=== PATIENT | female | born 1955 | race Native Hawaiian/Other Pacific Islander ===

== ENCOUNTER 2020-01-21 11:35 | Emergency (ER) | payer SELFPAY ==
[2020-01-21 11:48] VITALS: BP 177/89
[2020-01-21 12:23] LABS: Bilirubin,Urine NEG (Negative); Blood,Urine NEG (Negative); Color,Urine Yellow (Yellow); Mucus,Urine FEW /HPF; Urobilinogen,Urine < 2.0 mg/dL (<2.0)
[2020-01-21 12:24] LABS: Protein,Urine >500 mg/dL (Negative)
[2020-01-21] MEDS ORDERED: FAMOTIDINE 20 MG TAB PO ONE (12:25)
[2020-01-21] MEDS ORDERED: ONDANSETRON 4 MG ODT TAB PO ONE (12:25)
--- NOTE | 2020-01-21 12:28 | Emergency Department Report ---
ED Abdominal Pain HPI - General Chief Complaint: Abdominal Pain Stated Complaint: EPIGASTRIC PAIN Time Seen by Provider: 01/21/20 12:10 Source: patient, family Mode of arrival: Wheelchair Limitations: No Limitations - History of Present Illness Initial Comments: This 64-year-old female with a history of hypertension diabetes and high cholesterol controlled with medication presents the ED today complaining of upper abdominal pain for the past couple days. Patient states that she had a vomiting episode last night otherwise no unusual meals or fluid recently. Patient denies recent travel. She denies fever/chills/chest pain/shortness of breath/blurry vision or any other symptoms. Patient does state that pain is localized to upper abdominal area left greater than right. MD Complaint: abdominal pain - Related Data Previous Rx's Medication Instructions Recorded Last Taken Type HYDROcodone/APAP 5-325 [[place] 1 each PO Q6HR PRN #10 tablet 10/14/13 Unknown Rx 5/325 mg] Ibuprofen [Motrin 800 MG tab] 800 mg PO TID #30 tablet 10/14/13 Unknown Rx Tizanidine HCl [Zanaflex] 4 mg PO TID PRN #10 capsule 10/14/13 Unknown Rx Dicyclomine [Bentyl] 20 mg PO BID #20 tablet 01/21/20 Unknown Rx Famotidine [Pepcid] 20 mg PO BID #30 tablet 01/21/20 Unknown Rx Allergies Allergy/AdvReac Type Severity Reaction Status Date / Time No Known Allergies Allergy Verified 01/21/20 12:28 ED Review of Systems ROS: Stated complaint: EPIGASTRIC PAIN Other details as noted in HPI Comment: All other systems reviewed and negative ED Past Medical Hx - Past Medical History Previous Medical History?: Yes Hx Hypertension: Yes Hx Diabetes: Yes Additional medical history: chronic back pain - Surgical History Past Surgical History?: No - Social History Smoking Status: Never Smoker Substance Use Type: None - Medications Home Medications: Home Medications Medication Instructions Recorded Confirmed Last Taken Type HYDROcodone/APAP 5-325 [[place] 1 each PO Q6HR PRN #10 tablet 10/14/13 Unknown Rx 5/325 mg] Ibuprofen [Motrin 800 MG tab] 800 mg PO TID #30 tablet 10/14/13 Unknown Rx Tizanidine HCl [Zanaflex] 4 mg PO TID PRN #10 capsule 10/14/13 Unknown Rx Dicyclomine [Bentyl] 20 mg PO BID #20 tablet 01/21/20 Unknown Rx Famotidine [Pepcid] 20 mg PO BID #30 tablet 01/21/20 Unknown Rx ED Physical Exam - General Limitations: No Limitations General appearance: alert, in no apparent distress - Head Head exam: Present: atraumatic, normocephalic - Eye Eye exam: Present: normal appearance - ENT ENT exam: Present: mucous membranes moist - Neck Neck exam: Present: normal inspection - Respiratory Respiratory exam: Present: normal lung sounds bilaterally. Absent: respiratory distress - Cardiovascular Cardiovascular Exam: Present: regular rate, normal rhythm. Absent: systolic murmur, diastolic murmur, rubs, gallop - GI/Abdominal GI/Abdominal exam: Present: soft, tenderness (Mild tenderness to palpation of the upper abdomen), normal bowel sounds. Absent: distended, rebound, rigid, mass, bruit - Extremities Exam Extremities exam: Present: normal inspection - Back Exam Back exam: Present: normal inspection - Neurological Exam Neurological exam: Present: alert, oriented X3 - Psychiatric Psychiatric exam: Present: normal affect, normal mood - Skin Skin exam: Present: warm, dry, intact, normal color. Absent: rash ED Course Vital Signs 01/21/20 11:45 Temperature 98.1 F Pulse Rate 86 Respiratory 20 Rate Blood Pressure 177/89 O2 Sat by Pulse 97 Oximetry ED Medical Decision Making - Lab Data Result diagrams: 01/21/20 12:32 01/21/20 12:32 Laboratory Last Values WBC 9.9 K/mm3 (4.5-11.0) 01/21/20 12:32 RBC 4.34 M/mm3 (3.65-5.03) 01/21/20 12:32 Hgb 12.6 gm/dl (10.1-14.3) 01/21/20 12:32 Hct 37.1 % (30.3-42.9) 01/21/20 12:32 MCV 85 fl (79-97) 01/21/20 12:32 MCH 29 pg (28-32) 01/21/20 12:32 MCHC 34 % (30-34) 01/21/20 12:32 RDW 15.0 % (13.2-15.2) 01/21/20 12:32 Plt Count 272 K/mm3 (140-440) 01/21/20 12:32 Lymph % (Auto) 18.5 % (13.4-35.0) 01/21/20 12:32 [place] % (Auto) 6.8 % (0.0-7.3) 01/21/20 12:32 Eos % (Auto) 1.0 % (0.0-4.3) 01/21/20 12:32 Baso % (Auto) 0.8 % (0.0-1.8) 01/21/20 12:32 Lymph # 1.8 K/mm3 (1.2-5.4) 01/21/20 12:32 [place] # 0.7 K/mm3 (0.0-0.8) 01/21/20 12:32 Eos # 0.1 K/mm3 (0.0-0.4) 01/21/20 12:32 Baso # 0.1 K/mm3 (0.0-0.1) 01/21/20 12:32 Seg Neutrophils % 72.9 % (40.0-70.0) H 01/21/20 12:32 Seg Neutrophils # 7.2 K/mm3 (1.8-7.7) 01/21/20 12:32 Sodium 136 mmol/L (137-145) L 01/21/20 12:32 Potassium 5.3 mmol/L (3.6-5.0) H 01/21/20 12:32 Chloride 103.3 mmol/L (98-107) 01/21/20 12:32 Carbon Dioxide 19 mmol/L (22-30) L 01/21/20 12:32 Anion Gap 19 mmol/L 01/21/20 12:32 BUN 32 mg/dL (7-17) H 01/21/20 12:32 Creatinine 1.4 mg/dL (0.7-1.2) H 01/21/20 12:32 Estimated GFR 38 ml/min 01/21/20 12:32 BUN/Creatinine Ratio 23 % 01/21/20 12:32 Glucose 133 mg/dL (65-100) H 01/21/20 12:32 Calcium 8.2 mg/dL (8.4-10.2) L 01/21/20 12:32 Total Bilirubin 0.20 mg/dL (0.1-1.2) 01/21/20 12:32 AST 14 units/L (5-40) 01/21/20 12:32 ALT 9 units/L (7-56) 01/21/20 12:32 Alkaline Phosphatase 89 units/L (35-129) 01/21/20 12:32 Total Protein 5.7 g/dL (6.3-8.2) L 01/21/20 12:32 Albumin 2.4 g/dL (3.9-5) L 01/21/20 12:32 Albumin/Globulin Ratio 0.7 % 01/21/20 12:32 Lipase 23 units/L (13-60) 01/21/20 12:32 Urine Color Yellow (Yellow) 01/21/20 12:00 Urine Turbidity Clear (Clear) 01/21/20 12:00 Urine pH 6.0 (5.0-7.0) 01/21/20 12:00 Ur Specific [place] 1.012 (1.003-1.030) 01/21/20 12:00 Urine Protein >500 mg/dL (Negative) 01/21/20 12:00 Urine Glucose (UA) 150 mg/dL (Negative) 01/21/20 12:00 Urine Ketones Neg mg/dL (Negative) 01/21/20 12:00 Urine Blood Neg (Negative) 01/21/20 12:00 Urine Nitrite Neg (Negative) 01/21/20 12:00 Urine Bilirubin Neg (Negative) 01/21/20 12:00 Urine Urobilinogen < 2.0 mg/dL (<2.0) 01/21/20 12:00 Ur Leukocyte Esterase Neg (Negative) 01/21/20 12:00 Urine WBC (Auto) 2.0 /HPF (0.0-6.0) 01/21/20 12:00 Urine RBC (Auto) 4.0 /HPF (0.0-6.0) 01/21/20 12:00 U Epithel Cells (Auto) < 1.0 /HPF (0-13.0) 01/21/20 12:00 Urine Mucus Few /HPF 01/21/20 12:00 - Radiology Data Radiology results: report reviewed, image reviewed ULTRASOUND ABDOMEN, COMPLETE INDICATION: upper abd pain. COMPARISON: None available. FINDINGS: Pancreas: Normal. Abdominal Aorta: Normal. IVC: Normal. Liver: Normal. Gallbladder: Small amount of gallbladder sludge. No stones. Bile ducts: Normal. Common Bile Duct measures 2 mm. Right Kidney: Normal. Left Kidney: Normal. Spleen: Normal. Free fluid: None. Additional Findings: None. IMPRESSION: 1. Mild gallbladder sludge. 2. No other sonographic abnormality of the abdomen. Signer Name: Chema Corrigan MD Signed: 01/21/2020 2:27 PM Workstation Name: [id number] Transcribed By: Dictated By: Chema Corrigan MD Electronically Authenticated By: Chema Corrigan MD Signed Date/Time: 01/21/20 1421 - Medical Decision Making 64-year-old female presented with abdominal pain most likely secondary to gastritis/GERD. Patient received Pepcid, Zofran and Bentyl in the ED. Abdominal ultrasound shows mild gallbladder sludge, no stones, see report above All labs were completed. BUN and creatinine abnormal. Patient does note that she has been told in the past and is to follow-up with a securities supervisor. Unchanged. I discussed all findings with the patient. Discussed with patient follow-up with her web merchant as well as her primary care physician. Patient does state that she is taking her medications daily. Critical care attestation.: If time is entered above; I have spent that time in minutes in the direct care of this critically ill patient, excluding procedure time. ED Disposition Clinical Impression: Acute kidney injury (nontraumatic), Gastritis, Gallbladder sludge Disposition: DC-01 TO HOME OR SELFCARE Is pt being admited?: No Does the pt Need Aspirin: No Condition: Stable Instructions: Gastritis (ED), Biliary Colic (ED), Chronic Kidney Disease (ED), Abdominal Pain (ED) Additional Instructions: Make sure to follow up with the primary care physician as discussed. Take all your medications as you've been prescribed. If you have any worsening symptoms or develop new symptoms please return to ED immediately. Prescriptions: Dicyclomine [Bentyl] 20 mg PO BID #20 tablet Famotidine [Pepcid] 20 mg PO BID #30 tablet Referrals: PRIMARY CAREMD [Primary Care Provider] - 3-5 Days [facility] [Provider Group] - 3-5 Days [facility] [Provider Group] - 3-5 Days [facility] [Provider Group] - 3-5 Days [facility] [Provider Group] - 3-5 Days Forms: Work/School Release Form(ED) Time of Disposition: 15:06
[2020-01-21] MEDS ORDERED: FAMOTIDINE 20 MG/2 ML INJ IV ONE (12:29)
[2020-01-21] MEDS ORDERED: SODIUM CHLORIDE 0.9% 1000 ML 1,000 ML IV ONE (12:29)
[2020-01-21] MEDS ORDERED: ONDANSETRON 4 MG/2 ML INJ IV ONE (12:29)
[2020-01-21 12:45] LABS: Basophils # (Auto) 0.1 K/mm3 (0.0-0.1); Basophils % (Auto) 0.8 % (0.0-1.8); Eosinophils # (Auto) 0.1 K/mm3 (0.0-0.4); Hematocrit 37.1 % (30.3-42.9); Hemoglobin 12.6 gm/dl (10.1-14.3); Lymphocytes # (Auto) 1.8 K/mm3 (1.2-5.4); Lymphocytes % (Auto) 18.5 % (13.4-35.0); Mean Corpuscular HGB Conc 34 % (30-34); Mean Corpuscular Volume 85 fl (79-97); Monocytes # (Auto) 0.7 K/mm3 (0.0-0.8); Monocytes % (Auto) 6.8 % (0.0-7.3); Platelet Count 272 K/mm3 (140-440); Red Blood Count 4.34 M/mm3 (3.65-5.03)
[2020-01-21] MEDS ORDERED: DICYCLOMINE 10 MG/5 ML ORAL LIQD PO ONE (13:00)
[2020-01-21 13:08] LABS: Albumin 2.4 g/dL (3.9-5); Calcium 8.2 mg/dL (8.4-10.2)
[2020-01-21] MEDS ORDERED: DICYCLOMINE 20 MG TAB ONE (14:23)
--- NOTE | 2020-01-21 14:32 | Ultrasound Report ---
ULTRASOUND ABDOMEN, COMPLETE INDICATION: upper abd pain. COMPARISON: None available. FINDINGS: Pancreas: Normal. Abdominal Aorta: Normal. IVC: Normal. Liver: Normal. Gallbladder: Small amount of gallbladder sludge. No stones. Bile ducts: Normal. Common Bile Duct measures 2 mm. Right Kidney: Normal. Left Kidney: Normal. Spleen: Normal. Free fluid: None. Additional Findings: None. IMPRESSION: 1. Mild gallbladder sludge. 2. No other sonographic abnormality of the abdomen. Signer Name: Chema Corrigan MD Signed: 01/21/2020 2:27 PM Workstation Name: [id number]
== END 2020-01-21 15:26 | disposition home or self-care (01) ==
LOC: ED 11:35
DX: N17.9 Acute kidney failure, unspecified (principal); K29.70 Gastritis, unspecified, without bleeding; K82.4 Cholesterolosis of gallbladder; I10 Essential (primary) hypertension; E11.9 Type 2 diabetes mellitus without complications; Z79.899 Other long term (current) drug therapy
CPT/HCPCS: 36415; 76700; 80053; 81001; 83690; 85025; 96361; 96374; 96375; 99284; J2405; J7030

== ENCOUNTER 2020-05-11 23:17 | Inpatient (IN) | payer OTHER ==
--- NOTE | 2020-05-12 00:39 | XRay Report ---
CHEST 1 VIEW 0012 INDICATION / CLINICAL INFORMATION: Chest Pain COMPARISON: 12/25/2009 FINDINGS: SUPPORT DEVICES: None HEART / MEDIASTINUM: Mild cardiomegaly is now seen LUNGS / PLEURA: Mildly congested appearance is noted and there appears to be slight interstitial maximo a. No areas of consolidation are seen. No pneumothorax. ADDITIONAL FINDINGS: No significant additional findings. IMPRESSION: Congestion Signer Name: Stephan Huynh MD Signed: 05/12/2020 12:35 AM Workstation Name: [id number]
[2020-05-12 01:07] LABS: Basophils % (Auto) 0.5 % (0.0-1.8); Eosinophils # (Auto) 0.2 K/mm3 (0.0-0.4); Eosinophils % (Auto) 2.4 % (0.0-4.3); Hematocrit 37.4 % (30.3-42.9); Hemoglobin 12.4 gm/dl (10.1-14.3); Lymphocytes # (Auto) 1.5 K/mm3 (1.2-5.4); Lymphocytes % (Auto) 14.9 % (13.4-35.0); Mean Corpuscular HGB Conc 33 % (30-34); Mean Corpuscular Volume 85 fl (79-97); Monocytes # (Auto) 0.5 K/mm3 (0.0-0.8); Monocytes % (Auto) 5.5 % (0.0-7.3); Platelet Count 263 K/mm3 (140-440); Red Blood Count 4.39 M/mm3 (3.65-5.03); Red Cell Distribution Width 15.1 % (13.2-15.2)
[2020-05-12 01:29] LABS: BUN/Creatinine Ratio 24; Blood Urea Nitrogen 31 mg/dL (7-17); Calcium 8.3 mg/dL (8.4-10.2); Hemolysis Index 4
[2020-05-12] MEDS ORDERED: SODIUM CHLORIDE 0.9% 1000 ML 500 ML IV ONE (06:52)
--- NOTE | 2020-05-12 07:42 | Emergency Department Report ---
ED General Adult HPI - General Chief complaint: Chest Pain Stated complaint: ABD PAIN Time Seen by Provider: 05/12/20 06:29 Source: patient, family Mode of arrival: Ambulatory Limitations: Language Barrier - History of Present Illness Initial comments: This is a 64-year-old [place] Citizen speaking female. I have obtained her history in [place] Citizen. Apparently she has a history of COVID-19 infection with follow-up negative PCR. She tells me that she is here for profuse diarrhea which began yesterday. He does have some discomfort in her epigastric region. She has nausea but has not recently vomited. She does not report fever chills or hematochezia. Apparently her urine output has been somewhat diminished. She is a type II diabetic. -: Gradual, hour(s) Location: abdomen Severity scale (0 -10): 0 Quality: burning Consistency: intermittent Improves with: none Worsens with: none Associated Symptoms: nausea/vomiting, other Treatments Prior to Arrival: none - Related Data Home Medications Medication Instructions Recorded Confirmed Last Taken AtorvaSTATin [Lipitor] 20 mg PO QHS 05/12/20 05/12/20 Unknown carvediloL [Coreg] 6.25 mg PO BID 05/12/20 05/12/20 Unknown metFORMIN [Glucophage] 850 mg PO BID 05/12/20 05/12/20 Unknown Previous Rx's Medication Instructions Recorded Last Taken Type HYDROcodone/APAP 5-325 [[place] 1 each PO Q6HR PRN #10 tablet 10/14/13 Unknown Rx 5/325 mg] Ibuprofen [Motrin 800 MG tab] 800 mg PO TID #30 tablet 10/14/13 Unknown Rx Tizanidine HCl [Zanaflex] 4 mg PO TID PRN #10 capsule 10/14/13 Unknown Rx Dicyclomine [Bentyl] 20 mg PO BID #20 tablet 01/21/20 Unknown Rx Famotidine [Pepcid] 20 mg PO BID #30 tablet 01/21/20 Unknown Rx Allergies Allergy/AdvReac Type Severity Reaction Status Date / Time No Known Allergies Allergy Verified 01/21/20 12:28 ED Review of Systems ROS: Stated complaint: ABD PAIN Other details as noted in HPI Constitutional: denies: chills, fever Eyes: denies: eye pain, eye discharge, vision change ENT: denies: ear pain, throat pain Respiratory: denies: cough, shortness of breath, wheezing Cardiovascular: denies: chest pain, palpitations Endocrine: no symptoms reported Gastrointestinal: abdominal pain, nausea, diarrhea Genitourinary: denies: urgency, dysuria, discharge Musculoskeletal: denies: back pain, joint swelling, arthralgia Skin: denies: rash, lesions Neurological: denies: headache, weakness, paresthesias Psychiatric: denies: anxiety, depression Hematological/Lymphatic: denies: easy bleeding, easy bruising ED Past Medical Hx - Past Medical History Previous Medical History?: Yes Hx Hypertension: Yes Hx Congestive Heart Failure: Yes (? Takes Coreg) Hx Diabetes: Yes Additional medical history: chronic back pain - Surgical History Past Surgical History?: No - Social History Smoking Status: Never Smoker - Medications Home Medications: Home Medications Medication Instructions Recorded Confirmed Last Taken Type HYDROcodone/APAP 5-325 [[place] 1 each PO Q6HR PRN #10 tablet 10/14/13 Unknown Rx 5/325 mg] Ibuprofen [Motrin 800 MG tab] 800 mg PO TID #30 tablet 10/14/13 Unknown Rx Tizanidine HCl [Zanaflex] 4 mg PO TID PRN #10 capsule 10/14/13 Unknown Rx Dicyclomine [Bentyl] 20 mg PO BID #20 tablet 01/21/20 Unknown Rx Famotidine [Pepcid] 20 mg PO BID #30 tablet 01/21/20 Unknown Rx AtorvaSTATin [Lipitor] 20 mg PO QHS 05/12/20 05/12/20 Unknown History carvediloL [Coreg] 6.25 mg PO BID 05/12/20 05/12/20 Unknown History metFORMIN [Glucophage] 850 mg PO BID 05/12/20 05/12/20 Unknown History ED Physical Exam - General Limitations: Physical Limitation General appearance: obese, other (Somewhat dry) - Head Head exam: Present: atraumatic, normocephalic - Eye Eye exam: Present: normal appearance. Absent: scleral icterus - ENT ENT exam: Present: mucous membranes dry, normal external ear exam - Neck Neck exam: Present: normal inspection. Absent: tenderness, meningismus - Respiratory Respiratory exam: Present: normal lung sounds bilaterally. Absent: respiratory distress - Cardiovascular Cardiovascular Exam: Present: regular rate, normal rhythm. Absent: systolic murmur, diastolic murmur, rubs, gallop - GI/Abdominal GI/Abdominal exam: Present: soft, normal bowel sounds. Absent: distended, tenderness, guarding, rebound, rigid - Extremities Exam Extremities exam: Present: normal inspection - Back Exam Back exam: Present: normal inspection - Neurological Exam Neurological exam: Present: alert, oriented X3, CN II-XII intact. Absent: motor sensory deficit - Psychiatric Psychiatric exam: Present: normal affect, normal mood - Skin Skin exam: Present: warm, dry, intact, normal color. Absent: rash ED Course Vital Signs 05/11/20 05/12/20 23:47 07:34 Temperature 97.9 F 97.7 F Pulse Rate 86 77 Respiratory 18 15 Rate Blood Pressure 228/89 Blood Pressure 121/51 [Right] O2 Sat by Pulse 98 98 Oximetry - Reevaluation(s) Reevaluation #1: Patient has an elevated creatinine of 1.3 and a potassium of 5.1. This raises the specter of acute renal injury. Her initial systolic blood pressure was quite high. However on repeat it was normotensive without medication given. Her chest x-ray shows congestion. I am going to repeat her renal function and broaden her metabolic work-up. We will see if she needs to be admitted. 05/12/20 07:41 05/12/20 08:41 Repeat BMP shows a worsening creatinine and potassium. The patient is given fluids, Lasix, D50 and insulin. Renal consult. Admit to hospitalist service. 05/12/20 09:00 Discussed with renal. Will monitor the patient sugar. She probably will need a bit more insulin. Accu-Cheks every 1 hour. Urinalysis to be obtained. ED Medical Decision Making - Lab Data Result diagrams: 05/12/20 00:17 05/12/20 07:31 Laboratory Results - last 24 hr 05/12/20 05/12/20 05/12/20 00:17 00:17 02:28 WBC 9.9 RBC 4.39 Hgb 12.4 Hct 37.4 MCV 85 MCH 28 MCHC 33 RDW 15.1 Plt Count 263 Lymph % (Auto) 14.9 [place] % (Auto) 5.5 Eos % (Auto) 2.4 Baso % (Auto) 0.5 Lymph # 1.5 [place] # 0.5 Eos # 0.2 Baso # 0.0 Seg Neutrophils % 76.7 H Seg Neutrophils # 7.6 Sodium 142 Potassium 5.1 H Chloride 108.9 H Carbon Dioxide 23 Anion Gap 15 BUN 31 H Creatinine 1.3 H Estimated GFR 42 BUN/Creatinine Ratio 24 Glucose 178 H Calcium 8.3 L Troponin T < 0.010 < 0.010 05/12/20 05:57 WBC RBC Hgb Hct MCV MCH MCHC RDW Plt Count Lymph % (Auto) [place] % (Auto) Eos % (Auto) Baso % (Auto) Lymph # [place] # Eos # Baso # Seg Neutrophils % Seg Neutrophils # Sodium Potassium Chloride Carbon Dioxide Anion Gap BUN Creatinine Estimated GFR BUN/Creatinine Ratio Glucose Calcium Troponin T < 0.010 - EKG Data -: EKG Interpreted by Me EKG shows normal: sinus rhythm, axis, intervals, QRS complexes, ST-T waves Rate: normal - EKG Data Interpretation: nonspecific ST-T wave abhishek - Radiology Data Radiology results: report reviewed, image reviewed LUNGS / PLEURA: Mildly congested appearance is noted and there appears to be slight interstitial edema. No areas of consolidation are seen. No pneumothorax. ADDITIONAL FINDINGS: No significant additional findings. IMPRESSION: Congestion Critical care attestation.: If time is entered above; I have spent that time in minutes in the direct care of this critically ill patient, excluding procedure time. ED Disposition Clinical Impression: Acute renal injury Hyperglycemia due to type 2 diabetes mellitus Qualifiers: Diabetes mellitus skilled nursing insulin use: without skilled nursing use Qualified Code(s): E11.65 - Type 2 diabetes mellitus with hyperglycemia Cardiomyopathy Qualifiers: Cardiomyopathy type: unspecified Qualified Code(s): I42.9 - Cardiomyopathy, unspecified Congestive heart failure Qualifiers: Heart failure type: unspecified Heart failure chronicity: acute on chronic Qualified Code(s): I50.9 - Heart failure, unspecified Disposition: 09 OP ADMIT IP TO THIS HOSP Is pt being admited?: Yes Does the pt Need Aspirin: Yes Condition: Stable Instructions: Diabetes Mellitus Type 2 in Adults (ED) Referrals: PRIMARY CARE, [Primary Care Provider] - 3-5 Days Time of Disposition: 09:03
[2020-05-12 08:04] LABS: Partial Thromboplastin Time 25.5 Sec. (24.2-36.6)
[2020-05-12 08:13] LABS: Calcium 8.1 mg/dL (8.4-10.2)
[2020-05-12 08:21] LABS: Alanine Aminotransferase 11 units/L (7-56); Albumin 2.4 g/dL (3.9-5); Bilirubin,Direct < 0.2 mg/dL (0-0.2)
[2020-05-12] MEDS ORDERED: DEXTROSE 50% IN WATER (25GM) 50 ML SYRINGE IV ONE (08:35)
[2020-05-12] MEDS ORDERED: FUROSEMIDE 40 MG/4 ML INJ IV ONE ×2 (08:35→08:48)
[2020-05-12] MEDS ORDERED: INSULIN REGULAR, HUMAN 100 UNIT/ML 3ML VIAL IV ONE (09:00)
[2020-05-12] MEDS ORDERED: ASPIRIN 325 MG TAB PO ONE (09:03)
[2020-05-12] MEDS ORDERED: FAMOTIDINE 20 MG TAB PO SCH (10:00)
[2020-05-12] MEDS ORDERED: ACETAMINOPHEN 325 MG TAB PO PRN (10:00)
[2020-05-12] MEDS ORDERED: ONDANSETRON 4 MG/2 ML INJ IV PRN (10:00)
[2020-05-12] MEDS ORDERED: DEXTROSE 50% IN WATER (25GM) 50 ML SYRINGE IV PRN (10:00)
[2020-05-12] MEDS ORDERED: MORPHINE 2 MG/1 ML INJ IV PRN (10:00)
[2020-05-12] MEDS ORDERED: SODIUM CHLORIDE 0.45% 1000 ML 1,000 ML IV SCH (10:00)
[2020-05-12] MEDS ORDERED: carvediloL 6.25 MG TAB PO SCH (10:00)
--- NOTE | 2020-05-12 10:23 | Progress Note ---
Assessment and Plan Assessment and plan: Patient currently be admitted for acute on chronic kidney injury. Volume overload diabetes hyperkalemia. Total Time Spent with Patient (Minutes): 26 - Patient Problems (1) Hypertension Current Visit: Yes Status: Acute Plan to address problem: Patient with history of hypertension was scheduled to be on Coreg. Patient had initial blood pressure of 228/98 and repeat showed normal blood pressure. Will place patient back on low-dose Coreg 3.125 mg twice daily. We will also evaluate patient with echocardiogram to see whether she in fact has sustained left ventricular contractibility. (2) Acute renal injury Current Visit: Yes Status: Acute Plan to address problem: Patient appears to have chronic kidney disease patient had the same similar labs 4 months ago and then also prior to that was scheduled to follow-up with renal as outpatient. Think patient should be to see renal as outpatient more chronic than acute at this time. Would not be overly aggressive with fluids given patient's possible decrease left ventricular systolic function. (3) Cardiomyopathy Current Visit: Yes Status: Acute Qualifiers: Cardiomyopathy type: unspecified Qualified Code(s): I42.9 - Cardiomyopathy, unspecified Plan to address problem: Cardiomegaly rule out congestive heart failure. Cardiac evaluation. (4) Congestive heart failure Current Visit: Yes Status: Acute Qualifiers: Heart failure type: unspecified Heart failure chronicity: acute on chronic Qualified Code(s): I50.9 - Heart failure, unspecified Plan to address problem: Patient does not have any overt acute signs of volume overload patient does have some congestion on her chest x-ray and a +1 pitting edema on physical exam. We will add low-dose Lasix at this time. I do not think this will exacerbate her kidney function. (5) Hyperglycemia due to type 2 diabetes mellitus Current Visit: Yes Status: Acute Qualifiers: Diabetes mellitus halfway insulin use: without halfway use Qualified Code(s): E11.65 - Type 2 diabetes mellitus with hyperglycemia Plan to address problem: Patient was on metformin will change to sliding scale insulin for now. Treat q. before meals and nightly. (6) Hyperkalemia Current Visit: Yes Status: Acute Plan to address problem: Patient received ED already calcium gluconate Lasix insulin. Repeat potassium. We will hold off on Kayexalate now given patient's diarrhea. History Interval history: Patient is a 62-year-old female with a history of diabetes hypertension chronic kidney disease presents with chief complaint of abdominal pain and diarrhea. P atilan describes pain is midepigastric nonradiating. Important to note patient was here several months ago with similar pain was given Bentyl and H2 hugh and seemed to do fairly well. Patient is low no longer taking those medications at present. Was supposed to follow-up with nephrology as well as primary care physician and GI this was not done. Patient states this time symptoms were associated with a diarrhea which patient denies blood in denies been dark. States normal consistency but having several stools greater than 5 stools per day and has been going on for approximately 2 to 3 days. Patient at present denies chest pain denies flank pain denies any fever chills nausea vomiting. Patient was diagnosed with COVID-19 4 weeks ago and is since then had a negative PCR for COVID. Patient states she was able to hold food down however will have pain especially with spicy foods hot foods. Patient was stable with water. Patient also was not taking metformin because of stomach issues. Chest x-ray revealed patient to have some congestion on chest x-ray. Patient also had a creatinine of 1.3 and then to 1.4 this appears to be patient's new baseline. Hospitalist Physical - Constitutional Vitals: Temp Pulse Resp BP Pulse Ox 97.7 F 77 15 121/51 98 05/12/20 07:34 05/12/20 07:34 05/12/20 07:34 05/12/20 07:34 05/12/20 07:34 General appearance: Present: no acute distress - EENT Eyes: Present: PERRL, EOM intact ENT: hearing intact, clear oral mucosa, dentition normal - Neck Neck: Present: supple, normal ROM - Respiratory Respiratory: right: rhonchi (Few rhonchi at bases) - Cardiovascular Rhythm: regular - Extremities Extremities: no ischemia, pulses intact, pulses symmetrical Extremity abnormal: edema, other (+1 pitting edema.) Peripheral Pulses: within normal limits - Abdominal General gastrointestinal: soft, non-tender, non-distended, normal bowel sounds, other (Obese), no hepatomegaly, no splenomegaly, no mass - Psychiatric Psychiatric: appropriate mood/affect, intact judgment & insight, memory intact - Neurologic Neurologic: CNII-XII intact, moves all extremities HEART Score - HEART Score Troponin: Troponin T < 0.010 ng/mL (0.00-0.029) 05/12/20 07:31 Results - Labs CBC & Chem 7: 05/12/20 00:17 05/12/20 07:31 Labs: Laboratory Last Values WBC 9.9 K/mm3 (4.5-11.0) 05/12/20 00:17 RBC 4.39 M/mm3 (3.65-5.03) 05/12/20 00:17 Hgb 12.4 gm/dl (10.1-14.3) 05/12/20 00:17 Hct 37.4 % (30.3-42.9) 05/12/20 00:17 MCV 85 fl (79-97) 05/12/20 00:17 MCH 28 pg (28-32) 05/12/20 00:17 MCHC 33 % (30-34) 05/12/20 00:17 RDW 15.1 % (13.2-15.2) 05/12/20 00:17 Plt Count 263 K/mm3 (140-440) 05/12/20 00:17 Lymph % (Auto) 14.9 % (13.4-35.0) 05/12/20 00:17 Leake % (Auto) 5.5 % (0.0-7.3) 05/12/20 00:17 Eos % (Auto) 2.4 % (0.0-4.3) 05/12/20 00:17 Baso % (Auto) 0.5 % (0.0-1.8) 05/12/20 00:17 Lymph # 1.5 K/mm3 (1.2-5.4) 05/12/20 00:17 Leake # 0.5 K/mm3 (0.0-0.8) 05/12/20 00:17 Eos # 0.2 K/mm3 (0.0-0.4) 05/12/20 00:17 Baso # 0.0 K/mm3 (0.0-0.1) 05/12/20 00:17 Seg Neutrophils % 76.7 % (40.0-70.0) H 05/12/20 00:17 Seg Neutrophils # 7.6 K/mm3 (1.8-7.7) 05/12/20 00:17 PT 13.3 Sec. (12.2-14.9) 05/12/20 07:31 INR 1.00 (0.87-1.13) 05/12/20 07:31 APTT 25.5 Sec. (24.2-36.6) 05/12/20 07:31 Sodium 140 mmol/L (137-145) 05/12/20 07:31 Potassium 5.7 mmol/L (3.6-5.0) H 05/12/20 07:31 Chloride 111.1 mmol/L (98-107) H 05/12/20 07:31 Carbon Dioxide 21 mmol/L (22-30) L 05/12/20 07:31 Anion Gap 14 mmol/L 05/12/20 07:31 BUN 37 mg/dL (7-17) H 05/12/20 07:31 Creatinine 1.4 mg/dL (0.6-1.2) H 05/12/20 07:31 Estimated GFR 38 ml/min 05/12/20 07:31 BUN/Creatinine Ratio 26 % 05/12/20 07:31 Glucose 222 mg/dL (65-100) H 05/12/20 07:31 Lactic Acid 0.90 mmol/L (0.7-2.0) 05/12/20 07:31 Calcium 8.1 mg/dL (8.4-10.2) L 05/12/20 07:31 Phosphorus 4.60 mg/dL (2.5-4.5) H 05/12/20 07:31 Magnesium 2.20 mg/dL (1.7-2.3) 05/12/20 07:31 Total Bilirubin < 0.20 mg/dL (0.1-1.2) 05/12/20 07:31 Direct Bilirubin < 0.2 mg/dL (0-0.2) 05/12/20 07:31 Indirect Bilirubin 0.0 mg/dL 05/12/20 07:31 AST 15 units/L (5-40) 05/12/20 07:31 ALT 11 units/L (7-56) 05/12/20 07:31 Alkaline Phosphatase 95 units/L (35-129) 05/12/20 07:31 Troponin T < 0.010 ng/mL (0.00-0.029) 05/12/20 07:31 NT-Pro-B Natriuret Pep 5786 pg/mL (0-900) H 05/12/20 07:31 Total Protein 4.7 g/dL (6.3-8.2) L 05/12/20 07:31 Albumin 2.4 g/dL (3.9-5) L 05/12/20 07:31 Albumin/Globulin Ratio 1.0 % 05/12/20 07:31 Microbiology: Microbiology 05/12/20 07:31 Peripheral/Venous Blood Culture - Preliminary Culture in Progress 05/12/20 07:31 Peripheral/Venous Blood Culture - Preliminary Culture in Progress - Imaging and Cardiology EKG: image reviewed Chest x-ray: image reviewed Helm/IV: IV Catheter Type [Left INT / Saline Lock Antecubital] Active Medications - Current Medications Current Medications: Generic Name Dose Route Start Last Admin Trade Name Freq PRN Reason Stop Dose Admin Acetaminophen 650 mg 05/12/20 10:00 Tylenol PO Q4H PRN Pain MILD(1-3)/Fever >100.5/MCINTYRE Carvedilol 6.25 mg 05/12/20 10:00 Coreg PO BID [facility] Dextrose 50 ml 05/12/20 10:00 D50w (25gm) Syringe IV Q30MIN PRN Hypoglycemia Protocol Dicyclomine HCl 20 mg 05/12/20 10:00 Bentyl PO BID [facility] Enoxaparin Sodium 30 mg 05/12/20 11:00 Enoxaparin SUB-Q QDAY [facility] Famotidine 20 mg 05/12/20 10:00 Pepcid PO BID [facility] Sodium Chloride 500 mls @ 75 mls/hr 05/12/20 06:52 05/12/20 07:31 Nacl 0.9% 1000 Ml IV 05/12/20 13:31 75 mls/hr ONCE ONE Administration Sodium Chloride 1,000 mls @ 75 mls/hr 05/12/20 10:00 Nacl 0.45% 1000 Ml IV DIRECT [facility] Insulin Human Regular 0 units 05/12/20 22:00 Humulin R. SUB-Q QHS [facility] Protocol Morphine Sulfate 2 mg 05/12/20 10:00 Morphine IV Q4H PRN Pain, Moderate (4-6) Ondansetron HCl 4 mg 05/12/20 10:00 Zofran IV Q8H PRN Nausea And Vomiting Sodium Chloride 10 ml 05/12/20 10:00 Sodium Chloride Flush Syringe 10 Ml IV BID [facility] Sodium Chloride 10 ml 05/12/20 09:47 Sodium Chloride Flush Syringe 10 Ml IV PRN PRN LINE FLUSH
[2020-05-12] MEDS ORDERED: SODIUM CHLORIDE 0.9% 1000 ML 1,000 ML IV SCH (10:30)
[2020-05-12] MEDS: FAMOTIDINE 20 MG TAB PO SCH ×2 (10:49→21:39)
[2020-05-12] MEDS: ENOXAPARIN 30 MG/0.3 ML INJ SUB-Q SCH (10:49)
[2020-05-12] MEDS: DICYCLOMINE 20 MG TAB PO SCH ×2 (10:49→21:39)
--- NOTE | 2020-05-12 12:42 | Consultation ---
History of Present Illness - Reason for Consult Consult date: 05/12/20 acute renal failure, chronic renal failure - History of Present Illness This is a 62-year-old woman with a history of diabetes, hypertension, chronic kidney disease who presents with epigastric abdominal pain and diarrhea. She notes that pain is ongoing for several months. Feeling "ok" at time of consult. She denies having a kidney doctor or knowing of any kidney issues in the past. Notes good urination. Denies any appetite changes. No vomiting or nausea. No dyspnea, no chest pain. Past History Past Medical History: arthritis, diabetes, hypertension Past Surgical History: No surgical history Social history: no significant social history Family history: no significant family history Medications and Allergies Allergies Allergy/AdvReac Type Severity Reaction Status Date / Time No Known Allergies Allergy Verified 01/21/20 12:28 Home Medications Medication Instructions Recorded Confirmed Last Taken Type AtorvaSTATin [Lipitor] 20 mg PO QHS 05/12/20 05/12/20 Unknown History carvediloL [Coreg] 6.25 mg PO BID 05/12/20 05/12/20 Unknown History lisinopriL [Zestril TAB] 40 mg PO QDAY 05/12/20 05/12/20 Unknown History metFORMIN [Glucophage] 850 mg PO BID 05/12/20 05/12/20 Unknown History Active Meds: Active Medications Acetaminophen (Tylenol) 650 mg PO Q4H PRN PRN Reason: Pain MILD(1-3)/Fever >100.5/MCINTYRE Dextrose (D50w (25gm) Syringe) 50 ml IV Q30MIN PRN; Protocol PRN Reason: Hypoglycemia Dicyclomine HCl (Bentyl) 20 mg PO BID [facility] Last Admin: 05/12/20 10:49 Dose: 20 mg Documented by: Enoxaparin Sodium (Enoxaparin) 30 mg SUB-Q QDAY [facility] Last Admin: 05/12/20 10:49 Dose: 30 mg Documented by: Famotidine (Pepcid) 20 mg PO BID [facility] Last Admin: 05/12/20 10:49 Dose: 20 mg Documented by: Sodium Chloride (Nacl 0.9% 1000 Ml) 500 mls @ 75 mls/hr IV ONCE ONE Stop: 05/12/20 13:31 Last Admin: 05/12/20 07:31 Dose: 75 mls/hr Documented by: Sodium Chloride (Nacl 0.45% 1000 Ml) 1,000 mls @ 75 mls/hr IV DIRECT [facility] Sodium Chloride (Nacl 0.9% 1000 Ml) 1,000 mls @ 75 mls/hr IV DIRECT [facility] Insulin Human Regular (Humulin R.) 0 units SUB-Q QHS [facility]; Protocol Morphine Sulfate (Morphine) 2 mg IV Q4H PRN PRN Reason: Pain, Moderate (4-6) Ondansetron HCl (Zofran) 4 mg IV Q8H PRN PRN Reason: Nausea And Vomiting Sodium Chloride (Sodium Chloride Flush Syringe 10 Ml) 10 ml IV BID [facility] Last Admin: 05/12/20 10:49 Dose: 10 ml Documented by: Sodium Chloride (Sodium Chloride Flush Syringe 10 Ml) 10 ml IV PRN PRN PRN Reason: LINE FLUSH Review of Systems Constitutional: no weight loss, no fever, no chills, no sweats Cardiovascular: no chest pain, no orthopnea, no palpitations Respiratory: no cough, no shortness of breath, no congestion Gastrointestinal: abdominal pain, nausea, diarrhea, change in bowel habits, no vomiting, no constipation Genitourinary Female: no dysuria, no difficulty voiding Musculoskeletal: no neck stiffness, no muscle cramps Integumentary: no rash Neurological: no head injury, no vertigo, no headaches Psychiatric: no anxiety Exam - Vital Signs Vital signs: Vital Signs Temp Pulse Resp BP Pulse Ox 97.9 F 86 18 228/89 98 05/11/20 23:47 05/11/20 23:47 05/11/20 23:47 05/11/20 23:47 05/11/20 23:47 - Physical Exam Narrative exam: Constitutional: no acute distress Head: NC/AT Neck: supple Lungs: clear to auscultation CV: RRR, no M/R/G Abdomen: soft, non-tender, bowel sounds present Back: nontender Extremities: no edema, pulses WNL Skin: intact Neuro: no focal deficits, alert and oriented x4 Results - Lab Results 05/12/20 00:17 05/12/20 07:31 Most recent lab results Calcium 8.1 mg/dL (8.4-10.2) L 05/12/20 07:31 Phosphorus 4.60 mg/dL (2.5-4.5) H 05/12/20 07:31 Magnesium 2.20 mg/dL (1.7-2.3) 05/12/20 07:31 Assessment and Plan # Acute Kidney Injury, Chronic Kidney Disease: agree that patient most likely has CKD stage 3 in setting of DM, HTN. Creatinine stable at 1.4 from January 2020. May have mild AVANI with elevation in BUN relative to creatinine due to pre-renal injury from diarrhea. - will establish outpatient follow up at time of discharge in our CKD clinic - agree with low dose Lasix, encourage PO hydration, management of diarrhea per primary team - strict Is/Os - renal diet - avoid nephrotoxins - will check PTH, urine protein/creatinine to assess chronicity of renal disease - check serologies including SPEP while in house - prior renal imaging from January 2020 WNL, consider repeat if renal function w orsens # Mild Hyperkalemia: agree with medical management. Low dose Lasix ok for now. # Hypocalcemia, Hyperphosphatemia: suspect secondary hyperparathyroidism, PTH ordered # HTN: BP high on arrival, now at goal. Agree with carvedilol, will plan for ELLIE/ARB as outpatient given proteinuria on UA. Echo pending # CHF history: echo pending. Volume status appears reasonable # DM: management per primary
[2020-05-12 20:07] LABS: Bilirubin,Urine NEG (Negative); Blood,Urine NEG (Negative); Color,Urine Yellow (Yellow); Hyaline Casts,Urine 14 /LPF; Mucus,Urine FEW /HPF; Urobilinogen,Urine < 2.0 mg/dL (<2.0)
[2020-05-12 20:08] LABS: Protein,Urine >500 mg/dL (Negative)
[2020-05-12 20:35] LABS: Protein/Creatinine Ratio,Urine 3.21
[2020-05-12] MEDS ORDERED: INSULIN REGULAR, HUMAN 100 UNITS/1 ML SUB-Q SCH (22:00)
[2020-05-13 07:48] LABS: Calcium 7.9 mg/dL (8.4-10.2)
[2020-05-13] MEDS ORDERED: carvediloL 6.25 MG TAB PO SCH ×2 (10:00)
[2020-05-13] MEDS ORDERED: LISINOPRIL 40 MG TAB PO SCH (10:00)
--- NOTE | 2020-05-13 10:55 | Discharge Summary ---
Providers - Providers Date of Admission: 05/12/20 09:53 Date of discharge: 05/13/20 Attending physician: LA HARRIS 05/12/20 08:33 Consult to Physician [CONS] Stat Comment: Consulting Provider: ROSEMARIE PFEIFFER Physician Instructions: Reason For Exam: Acute Renal Injury Primary care physician: METALWORKER Hospitalization Condition: Stable Hospital course: Patient presented with chronic kidney disease abdominal pain. Abdominal pain was old secondary to gastritis. And diarrhea has since resolved on 1 time. Patient abdominal pain was secondary to gastritis and GERD. Was scheduled to see [facility] did not go. Patient states she will go this time. Patient also had chronic kidney disease will follow-up with renal on outpatient. Blood pressure remained stable. Will increase Coreg back to 6.25 mg twice daily. Continue to hold ELLIE. This will be determined after she sees her primary care physician and nephrology. Nephrology aware. Disposition: TO HOME OR SELFCARE - Discharge Diagnoses (1) Hypertension Status: Acute Comment: fair controlled coreg (2) Acute renal injury Status: Acute Comment: resloved (3) Cardiomyopathy Status: Acute Qualifiers: Cardiomyopathy type: unspecified Qualified Code(s): I42.9 - Cardiomyopathy, unspecified (4) Congestive heart failure Status: Acute Qualifiers: Heart failure type: unspecified Heart failure chronicity: acute on chronic Qualified Code(s): I50.9 - Heart failure, unspecified Comment: await the echo and discharge (5) Hyperglycemia due to type 2 diabetes mellitus Status: Acute Qualifiers: Diabetes mellitus [facility] insulin use: without [facility] use Qualified Code(s): E11.65 - Type 2 diabetes mellitus with hyperglycemia Comment: well controlled (6) Hyperkalemia Status: Acute Core Measure Documentation - Palliative Care Palliative Care/ Comfort Measures: Not Applicable - Core Measures Any of the following diagnoses?: none Exam - Constitutional Vitals: Temp Pulse Resp BP Pulse Ox 98.3 F 75 20 140/84 98 05/13/20 06:10 05/13/20 06:26 05/13/20 06:10 05/13/20 06:26 05/12/20 22:01 General appearance: Present: no acute distress, well-nourished - EENT Eyes: Present: PERRL ENT: hearing intact, clear oral mucosa - Neck Neck: Present: supple, normal ROM - Respiratory Respiratory effort: normal Respiratory: bilateral: CTA - Cardiovascular Heart Sounds: Present: S1 & S2. Absent: rub, click - Extremities Extremities: pulses symmetrical, No edema Peripheral Pulses: within normal limits - Abdominal General gastrointestinal: Present: soft, non-tender, non-distended, normal bowel sounds Female genitourinary: Present: normal - Integumentary Integumentary: Present: clear, warm, dry - Musculoskeletal Musculoskeletal: gait normal, strength equal bilaterally - Psychiatric Psychiatric: appropriate mood/affect, intact judgment & insight - Neurologic Neurologic: CNII-XII intact, moves all extremities Plan Activity: no restrictions Weight Bearing Status: Full Weight Bearing Diet: diabetic Special Instructions: home health RN Follow up with: PRIMARY CARE, [Primary Care Provider] - 3-5 Days Prescriptions: Dicyclomine [Bentyl] 20 mg PO BID #20 tablet carvediloL [Coreg] 6.25 mg PO BID #60 Famotidine [Pepcid] 20 mg PO BID #30 tablet
[2020-05-13] MEDS ORDERED: ENOXAPARIN 40 MG/0.4 ML INJ SUB-Q SCH (11:11)
[2020-05-13] MEDS: FAMOTIDINE 20 MG TAB PO SCH (12:13)
[2020-05-13] MEDS: DICYCLOMINE 20 MG TAB PO SCH (12:13)
[2020-05-13] MEDS: ENOXAPARIN 30 MG/0.3 ML INJ SUB-Q SCH (12:13)
[2020-05-13 13:17] VITALS: BP 200/90
[2020-05-13] MEDS ORDERED: MODERATE DOSE SS, INSULIN LISPRO SUB-Q SCH (22:00)
[2020-05-13] MEDS ORDERED: [UNRECOGNIZED DRUG - OTHER] SUB-Q SCH (22:00)
== END 2020-05-13 15:49 | disposition home or self-care (01) | DRG 683 ==
LOC: ED 23:17 → 3A 05-12 09:53
PROVIDERS: ADMIT Internal Medicine; ATTEND Internal Medicine
DX: N17.9 Acute kidney failure, unspecified (principal); I42.9 Cardiomyopathy, unspecified; I13.0 Hypertensive heart and chronic kidney disease with heart failure and stage 1 through stage 4 chronic kidney disease, or unspecified chronic kidney disease; K29.00 Acute gastritis without bleeding; E11.65 Type 2 diabetes mellitus with hyperglycemia; I50.9 Heart failure, unspecified; G89.29 Other chronic pain; M54.9 Dorsalgia, unspecified; E66.9 Obesity, unspecified; E11.22 Type 2 diabetes mellitus with diabetic chronic kidney disease; M19.90 Unspecified osteoarthritis, unspecified site; N18.3 Chronic kidney disease, stage 3 (moderate); E83.51 Hypocalcemia; E83.39 Other disorders of phosphorus metabolism; K21.9 Gastro-esophageal reflux disease without esophagitis; E87.5 Hyperkalemia; Z79.899 Other long term (current) drug therapy; Z79.84 Long term (current) use of oral hypoglycemic drugs; Z79.891 Long term (current) use of opiate analgesic
CPT/HCPCS: 36415; 71045; 80048; 80076; 81001; 82140; 82570; 82962; 83735; 83880; 83970; 84100; 84156; 84165; 84484; 85025; 85610; 85730; 86021; 86038; 86160; 87040; 87045; 87086; 87177; 87493; 93005; 93306; G0378; J1650; J1815; J1940; J7030

== ENCOUNTER 2020-05-28 13:28 | Inpatient (IN) | payer OTHER, SELFPAY ==
[~2020-05-28 13:28] MED LIST: ETOMIDATE 20 MG/10 ML INJ IV ONE
[2020-05-28] MEDS ORDERED: niCARdipine DRIP 0 MG/0 ML BAG ONE (13:39)
--- NOTE | 2020-05-28 13:45 | Emergency Department Report ---
HPI - General Chief Complaint: Cardiac Arrest/CPR Time Seen by Provider: 05/28/20 13:33 - HPI HPI: Room 20 The patient is a 64-year-old female present with a chief complaint of cardiac arrest. Per EMS they received a call for shortness of breath. EMS arrived on scene to find the patient wheezing. Patient was transported to the ambulance and while in route went into cardiac arrest with an initial rhythm of PEA. ACLS protocols were initiated. EMS also states that the patient entered V. fib and was shocked x1 with return of spontaneous circulation. Patient had an IO placed in the lower extremity by EMS prior to arrival. Upon arrival to the ED the patient's Jayjay airway was removed and the patient was intubated by myself using a 7.0 ET tube assisted by glidescope ED Past Medical Hx - Past Medical History Hx Hypertension: Yes Hx Congestive Heart Failure: Yes (? Takes Coreg) Hx Diabetes: Yes Additional medical history: chronic back pain - Surgical History Past Surgical History?: No - Family History Family history: no significant - Social History Smoking Status: Unknown if ever smoked - Medications Home Medications: Home Medications Medication Instructions Recorded Confirmed Last Taken Type AtorvaSTATin [Lipitor] 20 mg PO QHS 05/12/20 05/12/20 Unknown History lisinopriL [Zestril TAB] 40 mg PO QDAY 05/12/20 05/12/20 Unknown History metFORMIN [Glucophage] 850 mg PO BID 05/12/20 05/12/20 Unknown History Acetaminophen [Acetaminophen TAB] 650 mg PO Q4H PRN tablet 05/13/20 Unknown Rx Dicyclomine [Bentyl] 20 mg PO BID #20 tablet 05/13/20 Unknown Rx Famotidine [Pepcid] 20 mg PO BID #30 tablet 05/13/20 Unknown Rx carvediloL [Coreg] 6.25 mg PO BID #60 05/13/20 Unknown Rx ED Review of Systems ROS: Stated complaint: CARDIC Other details as noted in HPI Comment: Unobtainable due to pts medical conditions Physical Exam - Physical Exam Vital Signs: Vital Signs 05/28/20 13:32 Pulse Rate 98 H Respiratory 19 Rate O2 Sat by Pulse 99 Oximetry Physical Exam: GENERAL: The patient is well-developed well-nourished female with a Jayjay airway in place being bagged HEENT: Normocephalic. Atraumatic. NECK: Trachea midline CHEST/LUNGS: Diminished diffusely. Breath sounds equal bilaterally with bagging after intubation by myself HEART/CARDIOVASCULAR: Regular. There is tachycardia. There is no gallop rub or murmur. ABDOMEN: Abdomen is soft, nontender. Patient has normal bowel sounds. There is no abdominal distention. SKIN: There is no rash. There is no edema. There is no diaphoresis. NEURO: GCS 3 T MUSCULOSKELETAL: There is no evidence of acute injury. ED Course Vital Signs 05/28/20 13:32 Pulse Rate 98 H Respiratory 19 Rate O2 Sat by Pulse 99 Oximetry - Intubation Time Out Performed: No Sedative: Etomidate Mg Given: 20 Paralytic: Succinylcholine Laryngoscope: fiberoptic video scope Size: 3 Assist Device Used: fiberoptic device ET Tube Size: 7 Tube Secured Depth (cm): 21 Tube Secured Location: lips Tube Placement Confirmation: visualized tube passing t, equal breath sounds bilat, no breath sounds over epi, confirmation by capnometr Patient Tolerated Procedure: no complications Intubation Complications: none ED Medical Decision Making - Lab Data Result diagrams: 05/28/20 13:47 05/28/20 14:46 - Radiology Data Radiology results: report reviewed (Chest x-ray), image reviewed (Chest x-ray) interpreted by me: Chest [id number], cephalization, hilar fullness bilaterally [facility] [address] [place] [address] XRay Report Signed Patient: LEILA NICOLAS MR#: [id number] : 1955 Acct:[id number] Age/Sex: 64 / F ADM Date: 05/28/20 Loc: ED Attending Dr: Ordering Physician: MIRZA QUINTANA MD Date of Service: 05/28/20 Procedure(s): XR chest 1V ap Accession Number(s): [id number] cc: MIRZA QUINTANA MD Fluoro Time In Minutes: CHEST 1 VIEW 05/28/2020 1:38 PM INDICATION / CLINICAL INFORMATION: ETT placement. COMPARISON: Chest x-ray 05/12/2020 FINDINGS: SUPPORT DEVICES: None. HEART / MEDIASTINUM: No significant abnormality. LUNGS / PLEURA: Moderate bilateral parenchymal disease has worsened since prior study No pneumothorax. ADDITIONAL FINDINGS: No significant additional findings. IMPRESSION: 1. Bilateral parenchymal disease could represent CHF versus pneumonia Signer Name: Chema Corrigan MD Signed: 05/28/2020 2:47 PM Workstation Name: [id number] Transcribed By: TL Dictated By: Chema Corrigan MD Electronically Authenticated By: Chema Corrigan MD Signed Date/Time: 05/28/201446 DD/ 45 TD/TT: - Differential Diagnosis Respiratory failure, CHF exacerbation, asthma exacerbation Critical care attestation.: If time is entered above; I have spent that time in minutes in the direct care of this critically ill patient, excluding procedure time. ED Disposition Clinical Impression: Respiratory arrest, Hyperkalemia Disposition: OP ADMIT IP TO THIS HOSP Is pt being admited?: Yes Does the pt Need Aspirin: Yes Condition: Serious Time of Disposition: 15:33 (Hospitalist notified (Dr Motat))
[2020-05-28] MEDS ORDERED: SUCCINYLCHOLINE CHLORIDE 200 MG/10 ML INJ MDV IV ONE (13:47)
[2020-05-28] MEDS ORDERED: AMIODARONE 150 MG in DEXTROSE 5% IN WATER 97 ML IV ONE (13:47)
[2020-05-28] MEDS ORDERED: MIDAZOLAM 2 MG/2 ML INJ IV PRN (13:49)
[2020-05-28] MEDS ORDERED: LIP THERAPY VASELINE TP PRN (13:49)
[2020-05-28] MEDS ORDERED: MINERAL OIL/PETROLATUM, WHITE OPHTH OINT 3.5 GM OU PRN (13:49)
[2020-05-28] MEDS ORDERED: MAGNESIUM SULFATE 2 GM/50 ML BAG IV ONE (13:53)
[2020-05-28] MEDS ORDERED: methylPREDNISolone Sod Succinate 125 MG/2 ML INJ IV ONE (13:53)
[2020-05-28] MEDS ORDERED: AMIODARONE 900 MG in DEXTROSE 5% IN WATER 482 ML IV SCH (14:00)
[2020-05-28] MEDS ORDERED: MIDAZOLAM 5 MG/5 ML INJ MDV IV NR (14:00)
[2020-05-28] MEDS ORDERED: niCARdipine 50 MG in SODIUM CHLORIDE 0.9% 250ML 230 ML IV SCH (14:00)
[2020-05-28 14:06] LABS: Basophils % (Auto) 0.6 % (0.0-1.8); Eosinophils # (Auto) 0.2 K/mm3 (0.0-0.4); Eosinophils % (Auto) 2.8 % (0.0-4.3); Hematocrit 31.7 % (30.3-42.9); Hemoglobin 10.2 gm/dl (10.1-14.3); Lymphocytes # (Auto) 1.5 K/mm3 (1.2-5.4); Lymphocytes % (Auto) 24.6 % (13.4-35.0); Mean Corpuscular HGB Conc 32 % (30-34); Mean Corpuscular Volume 87 fl (79-97); Monocytes # (Auto) 0.4 K/mm3 (0.0-0.8); Monocytes % (Auto) 5.8 % (0.0-7.3); Platelet Count 324 K/mm3 (140-440); Red Blood Count 3.65 M/mm3 (3.65-5.03); Red Cell Distribution Width 15.3 % (13.2-15.2)
[2020-05-28 14:15] LABS: INR 1.03 (0.87-1.13)
[2020-05-28 14:16] LABS: Partial Thromboplastin Time 30.2 Sec. (24.2-36.6)
[2020-05-28 14:26] LABS: Creatine Kinase MB 4.3 ng/mL (0.0-4.0)
[2020-05-28 14:29] LABS: Alanine Aminotransferase 41 units/L (7-56); Albumin 2.6 g/dL (3.9-5); BUN/Creatinine Ratio 22; Blood Urea Nitrogen 29 mg/dL (7-17); Calcium 8.1 mg/dL (8.4-10.2); Hemolysis Index 14
[2020-05-28] MEDS ORDERED: SODIUM CHLORIDE 0.9% 250ML 250 ML ONE (14:38)
[2020-05-28] MEDS: MIDAZOLAM 100 MG in SODIUM CHLORIDE 0.9% 80 ML IV SCH (14:42)
--- NOTE | 2020-05-28 14:51 | XRay Report ---
CHEST 1 VIEW 05/28/2020 1:38 PM INDICATION / CLINICAL INFORMATION: ETT placement. COMPARISON: Chest x-ray 05/12/2020 FINDINGS: SUPPORT DEVICES: None. HEART / MEDIASTINUM: No significant abnormality. LUNGS / PLEURA: Moderate bilateral parenchymal disease has worsened since prior study No pneumothorax . ADDITIONAL FINDINGS: No significant additional findings. IMPRESSION: 1. Bilateral parenchymal disease could represent CHF versus pneumonia Signer Name: Chema Corrigan MD Signed: 05/28/2020 2:47 PM Workstation Name: [id number]
[2020-05-28] MEDS ORDERED: cefTRIAXone/NS 1 GM/50 ML 1 GM/50 ML BAG IV ONE (14:53)
[2020-05-28] MEDS ORDERED: ALBUTEROL 2.5 MG/3 ML NEBU IH ONE (15:30)
--- NOTE | 2020-05-28 15:30 | History and Physical Report ---
History of Present Illness Date of examination: 05/28/20 Chief complaint: Unresponsive History of present illness: 64 YO Female with HTN, Diastolic CHF, Pulmonary HTN, DM, Obesity Hypoventilation Syndrome presents to ED for evaluation. Pt is intubated and sedated at the time of my evaluation is unable to provide history. Patient history taken from EMS staff, ED staff. As per staff, the EMS was notified for difficulty breathing. Upon arrival to the patient's home the patient was found to be in distress and was subsequently transported to [facility] for further evaluation and care. In route t o [facility] the patient developed cardiac arrest and was treated in accordance with ACLS protocol with return of perfusing cardiac rhythm. Patient was seen and evaluated in the emergency department and was found to have acute hypoxemic respiratory failure status post cardiac arrest. Patient was intubated and placed on ventilatory support. Patient seen and evaluated in the emergency department. Lab and imaging studies reviewed. Patient found to have acute hypoxemic respiratory failure, status post cardiac arrest, acute kidney injury, metabolic acidosis, as well as urinary tract infection. Patient admitted to ICU due to increased risk of decompensation. Critical care team consulted in ED. No further history obtainable. Advanced care planning conducted in the emergency department. Prior admission on 05/12/2020 reviewed. No medication listed for reconciliation at the time of my admission. No further history obtainable. Past History Past Medical History: diabetes, heart failure, hypertension, other (See HPI) Past Surgical History: No surgical history, Other (Reviewed) Social history: . denies: smoking, alcohol abuse, prescription drug abuse Family history: diabetes, hypertension Medications and Allergies Allergies Allergy/AdvReac Type Severity Reaction Status Date / Time No Known Allergies Allergy Verified 01/21/20 12:28 Home Medications Medication Instructions Recorded Confirmed Last Taken Type AtorvaSTATin [Lipitor] 20 mg PO QHS 05/12/20 05/12/20 Unknown History lisinopriL [Zestril TAB] 40 mg PO QDAY 05/12/20 05/12/20 Unknown History metFORMIN [Glucophage] 850 mg PO BID 05/12/20 05/12/20 Unknown History Acetaminophen [Acetaminophen TAB] 650 mg PO Q4H PRN tablet 05/13/20 Unknown Rx Dicyclomine [Bentyl] 20 mg PO BID #20 tablet 05/13/20 Unknown Rx Famotidine [Pepcid] 20 mg PO BID #30 tablet 05/13/20 Unknown Rx carvediloL [Coreg] 6.25 mg PO BID #60 05/13/20 Unknown Rx Active Meds: Active Medications Hydrophilic Ointment (Vaseline Lip Therapy) 1 applic TP Q2HR PRN PRN Reason: Dry Lips Amiodarone HCl 900 mg/ (Dextrose) 500 mls @ 33.333 mls/hr IV DIRECT NELSON; Protocol Midazolam HCl 100 mg/ Sodium (Chloride) 100 mls @ 2 mls/hr IV TITR NELSON; Protocol Last Admin: 05/28/20 14:42 Dose: 2 mg/hr, 2 mls/hr Documented by: Midazolam HCl (Versed) 5 mg IV ONCE NR Stop: 05/28/20 23:59 Last Admin: 05/28/20 13:35 Dose: 5 mg Documented by: Midazolam HCl (Versed) 2 mg IV Q10MIN PRN PRN Reason: Sedation Multi-Ingred Cream/Lotion/Oil/Oint (Artificial Tears Ophth Oint) 1 applic OU Q4HR PRN PRN Reason: Dry Eye(s) Review of Systems ROS unobtainable: due to endotracheal tube, due to mental status Exam - Constitutional Vitals: Temp Pulse Resp BP Pulse Ox 64 19 91/45 100 05/28/20 14:30 05/28/20 14:30 05/28/20 14:30 05/28/20 14:30 General appearance: Present: severe distress - EENT Eyes: Present: miosis ENT: hearing intact, clear oral mucosa - Neck Neck: Present: supple, normal ROM - Respiratory Respiratory effort: normal Respiratory: bilateral: diminished, rhonchi - Cardiovascular Heart Sounds: Present: S1 & S2. Absent: rub, click - Extremities Extremities: pulses symmetrical Extremity abnormal: edema Peripheral Pulses: within normal limits - Abdominal General gastrointestinal: Present: soft, non-tender, non-distended, normal bowel sounds Female genitourinary: Present: normal - Integumentary Integumentary: Present: clear, warm, dry - Musculoskeletal Musculoskeletal: generalized weakness - Psychiatric Psychiatric: no appropriate mood/affect, no intact judgment & insight - Neurologic Neurologic: CNII-XII intact, moves all extremities, no gait normal Results - Labs CBC & Chem 7: 05/28/20 13:47 05/28/20 15:33 Labs: Abnormal lab results 05/28/20 05/28/20 05/28/20 Range/Units 13:47 13:47 13:47 RDW 15.3 H (13.2-15.2) % VBG pH (7.320-7.420) Potassium 6.6 H* (3.6-5.0) mmol/L Chloride 109.2 H (98-107) mmol/L Carbon Dioxide 17 L (22-30) mmol/L BUN 29 H (7-17) mg/dL Creatinine 1.3 H (0.6-1.2) mg/dL Glucose 265 H (65-100) mg/dL Lactic Acid 3.40 H* (0.7-2.0) mmol/L Calcium 8.1 L (8.4-10.2) mg/dL Total Creatine Kinase 301 H (30-135) units/L CK-MB (CK-2) 4.3 H (0.0-4.0) ng/mL Total Protein 5.4 L (6.3-8.2) g/dL Albumin 2.6 L (3.9-5) g/dL 05/28/20 05/28/20 Range/Units 13:47 14:46 RDW (13.2-15.2) % VBG pH 7.152 L* (7.320-7.420) Potassium 7.2 H* (3.6-5.0) mmol/L Chloride (98-107) mmol/L Carbon Dioxide (22-30) mmol/L BUN (7-17) mg/dL Creatinine (0.6-1.2) mg/dL Glucose (65-100) mg/dL Lactic Acid (0.7-2.0) mmol/L Calcium (8.4-10.2) mg/dL Total Creatine Kinase (30-135) units/L CK-MB (CK-2) (0.0-4.0) ng/mL Total Protein (6.3-8.2) g/dL Albumin (3.9-5) g/dL Assessment and Plan - Patient Problems (1) Acute hypoxemic respiratory failure Current Visit: Yes Status: Acute Plan to address problem: Patient intubated, sedated and on ventilatory support. Critical care team consulted, wean vent as tolerated, daily spontaneous breathing trial, sedation holiday, ABG, supportive care. The high probability of a clinically significant, sudden or life threatening deterioration of the [pulmonary, renal, cardiac, neuro] system(s) required my full and direct attention, intervention and personal management. The aggregate critical care time was [90] minutes. This time is in addition to time spent performing reported procedures but includes the following: [x] Data Review and interpretation [x] Patient assessment and monitoring of vital signs [x] Documentation [x] Medication orders and management (2) Cardiac arrest Current Visit: Yes Status: Acute Plan to address problem: Cardiology team consulted, echocardiogram pending, serial cardiac enzymes, EKG, telemetry monitoring. (3) Metabolic acidosis Current Visit: Yes Status: Acute Plan to address problem: BMP, repeat BMP in a.m., supportive care. (4) Metabolic encephalopathy Current Visit: Yes Status: Acute Plan to address problem: CT head, neuro check, BMP, supportive care. (5) DVT prophylaxis Current Visit: Yes Status: Acute Plan to address problem: SCD to bilateral lower extremities while in bed, prophylactic anticoagulation. (6) Advance care planning Current Visit: Yes Status: Acute Plan to address problem: Disease education conducted, prognosis discussed, +30 minutes. Patient is full code.
[2020-05-28] MEDS ORDERED: DEXTROSE 50% IN WATER (25GM) 50 ML SYRINGE IV ONE (15:31)
[2020-05-28] MEDS ORDERED: INSULIN REGULAR, HUMAN 100 UNIT/ML 3ML VIAL IV ONE (15:31)
[2020-05-28] MEDS ORDERED: SODIUM POLYSTYRENE 15 GM/60 ML ORAL LIQD PO ONE (15:31)
[2020-05-28] MEDS ORDERED: SODIUM BICARB 8.4% 50 MEQ/50 ML SYRINGE IV ONE (15:31)
[2020-05-28] MEDS ORDERED: CALCIUM GLUCONATE 1,000 MG in SODIUM CHLORIDE 0.9% 100 ML IV ONE (16:00)
[2020-05-28] MEDS ORDERED: INSULIN REGULAR, HUMAN 100 UNITS/1 ML ONE (16:00)
[2020-05-28 16:14] LABS: ABG Base Excess -6.1 mmol/L (-2.0-3.0); ABG HCO3 20.5 mmol/L (20.0-26.0); ABG Methemoglobin 0.7 % (0.0-1.5); ABG Oxygen Saturation 99.4 % (95.0-99.0); ABG PCO2 44.2 mm Hg; ABG PH 7.284 pH Units (7.350-7.450)
[2020-05-28 16:24] LABS: C-Reactive Protein 0.2 mg/dL (0.00-1.30)
[2020-05-28 16:52] LABS: Bacteria,Urine 2+ /HPF (Negative); Bilirubin,Urine NEG (Negative); Blood,Urine NEG (Negative); Color,Urine Yellow (Yellow); Mucus,Urine FEW /HPF; Urobilinogen,Urine < 2.0 mg/dL (<2.0)
[2020-05-28 16:55] LABS: Protein,Urine >500 mg/dL (Negative)
--- NOTE | 2020-05-28 17:00 | XRay Report ---
ABDOMEN 1 VIEW 4:29 PM INDICATION / CLINICAL INFORMATION: OG placement check. COMPARISON: None available. FINDINGS: TUBES / LINES: Esophagogastric tube present in the mid to distal stomach. BOWEL GAS PATTERN: No significant abnormality. FREE AIR / EXTRALUMINAL GAS: None seen. ADDITIONAL FINDINGS: No significant additional findings. IMPRESSION: 1. Esophagogastric tube in expected position. Signer Name: Lucia Josue MD Signed: 05/28/2020 4:56 PM Workstation Name: [id number]
--- NOTE | 2020-05-28 17:49 | Event Note ---
Date: 05/28/20 CT Brain ordered to evaluate for cause of loss of consciousness at 1530hrs. Awaiting results to determine patient disposition.
[2020-05-28] MEDS ORDERED: SODIUM CHLORIDE 0.9% 1000 ML 1,000 ML IV ONE (17:52)
--- NOTE | 2020-05-28 18:50 | Cat Scan Report ---
CT head/brain wo con INDICATION: unresponsive. TECHNIQUE: Routine CT head without contrast. All CT scans at this location are performed using CT dos e reduction for ALARA by means of automated exposure control. COMPARISON: None. FINDINGS: BRAIN / INTRACRANIAL CONTENTS: No acute hemorrhage, mass effect, midline shift, or hydrocephalus. No appreciable acute large territorial or lacunar infarct. No chronic infarct or focal atrophy. Normal b rain volume and ventricular/sulcal size for age. ORBITS: No significant abnormality of visualized orbits. SINUSES / MASTOIDS: No significant abnormality of visualized sinuses and mastoid air cells. ADDITIONAL FINDINGS: None. IMPRESSION: 1. No acute intracranial abnormality. Signer Name: Gurpreet Rueda MD Signed: 05/28/2020 6:45 PM Workstation Name: [id number]
[2020-05-29 05:16] LABS: Basophils % (Auto) 0.2 % (0.0-1.8); Hematocrit 29.4 % (30.3-42.9); Hemoglobin 9.8 gm/dl (10.1-14.3); Lymphocytes # (Auto) 0.7 K/mm3 (1.2-5.4); Lymphocytes % (Auto) 7.4 % (13.4-35.0); Mean Corpuscular HGB Conc 33 % (30-34); Mean Corpuscular Volume 85 fl (79-97); Monocytes # (Auto) 0.3 K/mm3 (0.0-0.8); Monocytes % (Auto) 3.3 % (0.0-7.3); Platelet Count 285 K/mm3 (140-440); Red Blood Count 3.48 M/mm3 (3.65-5.03)
[2020-05-29 05:17] LABS: ABG Base Excess -4.5 mmol/L (-2.0-3.0); ABG HCO3 19.3 mmol/L (20.0-26.0); ABG Methemoglobin 0.5 % (0.0-1.5); ABG Oxygen Saturation 96.8 % (95.0-99.0); ABG PCO2 31.1 mm Hg; ABG PH 7.411 pH Units (7.350-7.450)
--- NOTE | 2020-05-29 05:35 | XRay Report ---
CHEST 1 VIEW INDICATION / CLINICAL INFORMATION: follow up respiratory failure. COMPARISON: 05/28/2020 FINDINGS: SUPPORT DEVICES: Stable, satisfactory device positioning. HEART / MEDIASTINUM: Enlarged, stable. LUNGS / PLEURA: Bilateral pulmonary opacities have shown slight interval worsening. There are enlargi ng bilateral pleural effusions. No pneumothorax. ADDITIONAL FINDINGS: No significant additional findings. IMPRESSION: 1. Interval worsening of chest radiograph. Overall appearance is most suggestive of worsening interst itial pulmonary edema and bilateral pleural effusions. I cannot exclude underlying pneumonia. Signer Name: Marcella Washington MD Signed: 05/29/2020 5:30 AM Workstation Name: [id number]
[2020-05-29 05:41] LABS: Calcium 8.4 mg/dL (8.4-10.2)
--- NOTE | 2020-05-29 09:59 | Consultation ---
History of Present Illness Consult date: 05/29/20 Consult reason: cardiac arrest History of present illness: EMS was called for a 64-year old woman with shortness of breath and wheezing. Enroute it is reported patient developed PEA arrest then ventricular fibrillation, underwent ACLS protocol with ROSC. There are no strips available for review. On presentation, initial labs showed a potassium of 7.2 with a creatinine of 1.3. Patient was also hypertensive, systolic BP 239. Chest x-ray reports evidence of bilateral infiltrates, differential diagnosis of congestive heart failure versus pneumonia. She is currently intubated on the ventilator and on isolation protocol for suspicion of coronavirus. 12 lead ECG is sinus rhythm, no acute ischemic changes. Of note, patient was hospitalized at this hospital 3 weeks ago. An echocardiogram done showed evidence of rheumatic heart disease with lesions of the aortic and mitral valves. There was moderate pulmonary hypertension, RVSP 45 mmHg. Normal left ventricular systolic function, ejection fraction 55-60%. Past History Social history: . denies: smoking, alcohol abuse, prescription drug abu se Family history: diabetes, hypertension Medications and Allergies Allergies Allergy/AdvReac Type Severity Reaction Status Date / Time No Known Allergies Allergy Verified 01/21/20 12:28 Home Medications Medication Instructions Recorded Confirmed Last Taken Type AtorvaSTATin [Lipitor] 20 mg PO QHS 05/12/20 05/12/20 Unknown History lisinopriL [Zestril TAB] 40 mg PO QDAY 05/12/20 05/12/20 Unknown History metFORMIN [Glucophage] 850 mg PO BID 05/12/20 05/12/20 Unknown History Acetaminophen [Acetaminophen TAB] 650 mg PO Q4H PRN tablet 05/13/20 Unknown Rx Dicyclomine [Bentyl] 20 mg PO BID #20 tablet 05/13/20 Unknown Rx Famotidine [Pepcid] 20 mg PO BID #30 tablet 05/13/20 Unknown Rx carvediloL [Coreg] 6.25 mg PO BID #60 05/13/20 Unknown Rx Active Meds: Active Medications Famotidine (Pepcid) 20 mg IV BID NELSON Hydrophilic Ointment (Vaseline Lip Therapy) 1 applic TP Q2HR PRN PRN Reason: Dry Lips Amiodarone HCl 900 mg/ (Dextrose) 500 mls @ 33.333 mls/hr IV DIRECT NELSON; Protocol Midazolam HCl 100 mg/ Sodium (Chloride) 100 mls @ 2 mls/hr IV TITR NELSON; Protocol Last Titration: 05/29/20 03:42 Dose: 3 mg/hr, 3 mls/hr Documented by: Midazolam HCl (Versed) 2 mg IV Q10MIN PRN PRN Reason: Sedation Multi-Ingred Cream/Lotion/Oil/Oint (Artificial Tears Ophth Oint) 1 applic OU Q4HR PRN PRN Reason: Dry Eye(s) Sodium Chloride (Sodium Chloride Flush Syringe 10 Ml) 10 ml IV BID NELSON Last Admin: 05/29/20 09:23 Dose: Not Given Documented by: Sodium Chloride (Sodium Chloride Flush Syringe 10 Ml) 10 ml IV PRN PRN PRN Reason: LINE FLUSH Physical Examination Vital Signs BP 239/126 05/28/20 13:15 General appearance: other (intubated on the vent) Cardiac: Positive: Reg Rate and Rhythm Results 05/29/20 04:43 05/29/20 04:43 Cardiac Enzymes 05/28/20 05/28/20 Range/Units 13:47 15:33 AST 63 H (5-40) units/L Lactate Dehydrogenase 365 H (91-180) units/L CK-MB (CK-2) 4.3 H (0.0-4.0) ng/mL Coagulation 05/28/20 Range/Units 13:47 PT 13.7 (12.2-14.9) Sec. INR 1.03 (0.87-1.13) APTT 30.2 (24.2-36.6) Sec. CBC 05/28/20 05/29/20 Range/Units 13:47 04:43 WBC 6.2 9.1 (4.5-11.0) K/mm3 RBC 3.65 3.48 L (3.65-5.03) M/mm3 Hgb 10.2 9.8 L (10.1-14.3) gm/dl Hct 31.7 29.4 L (30.3-42.9) % Plt Count 324 285 (140-440) K/mm3 Lymph # 1.5 0.7 L (1.2-5.4) K/mm3 Reeves # 0.4 0.3 (0.0-0.8) K/mm3 Eos # 0.2 0.0 (0.0-0.4) K/mm3 Baso # 0.0 0.0 (0.0-0.1) K/mm3 Comprehensive Metabolic Panel 05/28/20 05/28/20 05/28/20 Range/Units 13:47 14:46 15:33 Sodium 140 (137-145) mmol/L Potassium 6.6 H* 7.2 H* (3.6-5.0) mmol/L Chloride 109.2 H (98-107) mmol/L Carbon Dioxide 17 L (22-30) mmol/L BUN 29 H (7-17) mg/dL Creatinine 1.3 H (0.6-1.2) mg/dL Glucose 265 H 152 H (65-100) mg/dL Calcium 8.1 L (8.4-10.2) mg/dL AST 63 H (5-40) units/L ALT 41 (7-56) units/L Alkaline Phosphatase 124 (35-129) units/L Total Protein 5.4 L (6.3-8.2) g/dL Albumin 2.6 L (3.9-5) g/dL 05/28/20 05/29/20 Range/Units 21:49 04:43 Sodium 142 (137-145) mmol/L Potassium 4.9 D 4.9 (3.6-5.0) mmol/L Chloride 110.2 H (98-107) mmol/L Carbon Dioxide 18 L (22-30) mmol/L BUN 32 H (7-17) mg/dL Creatinine 1.4 H (0.6-1.2) mg/dL Glucose 180 H (65-100) mg/dL Calcium 8.4 (8.4-10.2) mg/dL AST (5-40) units/L ALT (7-56) units/L Alkaline Phosphatase (35-129) units/L Total Protein (6.3-8.2) g/dL Albumin (3.9-5) g/dL Assessment and Plan - Patient Problems (1) Respiratory arrest Current Visit: Yes Status: Acute
[2020-05-29] MEDS ORDERED: cefTRIAXone/NS 1 GM/50 ML 1 GM/50 ML BAG IV SCH (10:00)
[2020-05-29] MEDS: FAMOTIDINE 20 MG/2 ML INJ IV SCH ×2 (10:34→22:21)
[2020-05-29] MEDS: cefTRIAXone/NS 2 GM/100 ML 2 GM/100 ML BAG IV SCH (11:45)
--- NOTE | 2020-05-29 12:30 | Consultation ---
History of Present Illness Consult date: 05/29/20 Requesting physician: SHERRIE DODD Reason for consult: other (S/P CArdiac Arrest with ROSC; Acute respiratory failure on MVS) History of present illness: PULMONARY/CCM CONSULT NOTE (Full dictation # [id number]) Please see dictated notes for full details Past History Past Medical History: diabetes, heart failure, hypertension, other (See HPI) Past Surgical History: No surgical history, Other (Reviewed) Social history: . denies: smoking, alcohol abuse, prescription drug abuse Family history: diabetes, hypertension Medications and Allergies Allergies Allergy/AdvReac Type Severity Reaction Status Date / Time No Known Allergies Allergy Verified 01/21/20 12:28 Home Medications Medication Instructions Recorded Confirmed Last Taken Type AtorvaSTATin [Lipitor] 20 mg PO QHS 05/12/20 05/29/20 Unknown History lisinopriL [Zestril TAB] 40 mg PO QDAY 05/12/20 05/29/20 Unknown History metFORMIN [Glucophage] 850 mg PO BID 05/12/20 05/29/20 Unknown History Acetaminophen [Acetaminophen TAB] 650 mg PO Q4H PRN tablet 05/13/20 05/29/20 Unknown Rx Dicyclomine [Bentyl] 20 mg PO BID #20 tablet 05/13/20 05/29/20 Unknown Rx Famotidine [Pepcid] 20 mg PO BID #30 tablet 05/13/20 05/29/20 Unknown Rx carvediloL [Coreg] 6.25 mg PO BID #60 05/13/20 05/29/20 Unknown Rx Active Meds: Active Medications Famotidine (Pepcid) 20 mg IV BID NELSON Last Admin: 05/29/20 10:34 Dose: 20 mg Documented by: Hydrophilic Ointment (Vaseline Lip Therapy) 1 applic TP Q2HR PRN PRN Reason: Dry Lips Amiodarone HCl 900 mg/ (Dextrose) 500 mls @ 33.333 mls/hr IV DIRECT NELSON; Protocol Midazolam HCl 100 mg/ Sodium (Chloride) 100 mls @ 2 mls/hr IV TITR NELSON; Protocol Last Titration: 05/29/20 10:36 Dose: 2 mg/hr, 2 mls/hr Documented by: Sodium Chloride (Nacl 0.9% 1000 Ml) 1,000 mls @ 100 mls/hr IV DIRECT NELSON Ceftriaxone Sodium (Rocephin/Ns 2 Gm/100 Ml) 2 gm in 100 mls @ 200 mls/hr IV Q24HR NELSON Stop: 05/31/20 12:00 Midazolam HCl (Versed) 2 mg IV Q10MIN PRN PRN Reason: Sedation Multi-Ingred Cream/Lotion/Oil/Oint (Artificial Tears Ophth Oint) 1 applic OU Q4HR PRN PRN Reason: Dry Eye(s) Sodium Chloride (Sodium Chloride Flush Syringe 10 Ml) 10 ml IV BID NELSON Last Admin: 05/29/20 10:34 Dose: 10 ml Documented by: Sodium Chloride (Sodium Chloride Flush Syringe 10 Ml) 10 ml IV PRN PRN PRN Reason: LINE FLUSH Physical Examination Vital signs: Vital Signs BP 239/126 05/28/20 13:15 Results - Laboratory Findings CBC and BMP: 05/29/20 04:43 05/29/20 04:43 ABG ABG pH 7.411 pH Units (7.350-7.450) 05/29/20 04:35 ABG pCO2 31.1 mm Hg 05/29/20 04:35 ABG pO2 82.0 mm Hg (80.0-90.0) 05/29/20 04:35 ABG O2 Saturation 96.8 % (95.0-99.0) 05/29/20 04:35 PT/INR, D-dimer PT 13.7 Sec. (12.2-14.9) 05/28/20 13:47 INR 1.03 (0.87-1.13) 05/28/20 13:47 D-Dimer 8780.43 ng/mlDDU (0-234) H 05/28/20 15:33 Abnormal lab findings: Abnormal Labs 05/28/20 05/28/20 05/28/20 13:29 13:47 13:47 RBC Hgb Hct RDW 15.3 H Lymph % (Auto) Lymph # Seg Neutrophils % Seg Neutrophils # D-Dimer ABG pH ABG pO2 ABG HCO3 ABG O2 Saturation ABG Base Excess ABG Hemoglobin VBG pH Potassium 6.6 H* Chloride 109.2 H Carbon Dioxide 17 L BUN 29 H Creatinine 1.3 H Glucose 265 H POC Glucose 248 H Lactic Acid Calcium 8.1 L AST 63 H Lactate Dehydrogenase Total Creatine Kinase 301 H CK-MB (CK-2) 4.3 H Total Protein 5.4 L Albumin 2.6 L Urine WBC (Auto) 05/28/20 05/28/20 05/28/20 13:47 13:47 14:46 RBC Hgb Hct RDW Lymph % (Auto) Lymph # Seg Neutrophils % Seg Neutrophils # D-Dimer ABG pH ABG pO2 ABG HCO3 ABG O2 Saturation ABG Base Excess ABG Hemoglobin VBG pH 7.152 L* Potassium 7.2 H* Chloride Carbon Dioxide BUN Creatinine Glucose POC Glucose Lactic Acid 3.40 H* Calcium AST Lactate Dehydrogenase Total Creatine Kinase CK-MB (CK-2) Total Protein Albumin Urine WBC (Auto) 05/28/20 05/28/20 05/28/20 15:33 15:33 15:51 RBC Hgb Hct RDW Lymph % (Auto) Lymph # Seg Neutrophils % Seg Neutrophils # D-Dimer 8780.43 H ABG pH 7.284 L ABG pO2 273.0 H ABG HCO3 ABG O2 Saturation 99.4 H ABG Base Excess -6.1 L ABG Hemoglobin 17.2 H VBG pH Potassium Chloride Carbon Dioxide BUN Creatinine Glucose 152 H POC Glucose Lactic Acid Calcium AST Lactate Dehydrogenase 365 H Total Creatine Kinase CK-MB (CK-2) Total Protein Albumin Urine WBC (Auto) 05/28/20 05/28/20 05/29/20 16:30 23:20 04:35 RBC Hgb Hct RDW Lymph % (Auto) Lymph # Seg Neutrophils % Seg Neutrophils # D-Dimer ABG pH ABG pO2 ABG HCO3 19.3 L ABG O2 Saturation ABG Base Excess -4.5 L ABG Hemoglobin 9.7 L VBG pH Potassium Chloride Carbon Dioxide BUN Creatinine Glucose POC Glucose 224 H Lactic Acid Calcium AST Lactate Dehydrogenase Total Creatine Kinase CK-MB (CK-2) Total Protein Albumin Urine WBC (Auto) 17.0 H 05/29/20 05/29/20 04:43 04:43 RBC 3.48 L Hgb 9.8 L Hct 29.4 L RDW 16.0 H Lymph % (Auto) 7.4 L Lymph # 0.7 L Seg Neutrophils % 89.1 H Seg Neutrophils # 8.1 H D-Dimer ABG pH ABG pO2 ABG HCO3 ABG O2 Saturation ABG Base Excess ABG Hemoglobin VBG pH Potassium Chloride 110.2 H Carbon Dioxide 18 L BUN 32 H Creatinine 1.4 H Glucose 180 H POC Glucose Lactic Acid Calcium AST Lactate Dehydrogenase Total Creatine Kinase CK-MB (CK-2) Total Protein Albumin Urine WBC (Auto)
[2020-05-29] MEDS: SODIUM CHLORIDE 0.9% 1000 ML 1,000 ML IV SCH (13:28)
[2020-05-29] MEDS ORDERED: SIMPLE SYRUP 15 ML FEEDTUBE PRN ×2 (13:39)
[2020-05-29] MEDS ORDERED: INSULIN LISPRO 100 UNIT/ML VIAL 3 mL SUB-Q SCH (15:00)
[2020-05-29] MEDS: ENOXAPARIN 40 MG/0.4 ML INJ SUB-Q SCH (15:15)
--- NOTE | 2020-05-29 15:44 | Consultation ---
History of Present Illness - Reason for Consult Consult date: 05/29/20 COVID-19 Requesting physician: LISA FERNANDEZ - History of Present Illness The patient is a 64-year-old female with hypertension, diastolic CHF, pulmonary hypertension, diabetes, obesity hypoventilation syndrome was admitted to the emergency room after she called EMS due to difficulty breathing. On the way to the hospital, patient developed cardiac arrest and was treated as per ACLS protocol. Patient is currently intubated, on mechanical ventilation in ICU. Chest x-ray showed bilateral pneumonia. Labs showed no leukocytosis, d-dimer was elevated at 8780, ferritin 179, procalcitonin 0.05, CRP 0.2. COVID-19 PCR is positive. Review of Systems: reviewed in the chart, unable to obtain directly due to PPE shortage and preservation Past History Past Medical History: diabetes, heart failure, hypertension, other (See HPI) Past Surgical History: No surgical history, Other (Reviewed) Social history: . denies: smoking, alcohol abuse, prescription drug abuse Family history: diabetes, hypertension Medications and Allergies Allergies Allergy/AdvReac Type Severity Reaction Status Date / Time No Known Allergies Allergy Verified 01/21/20 12:28 Home Medications Medication Instructions Recorded Confirmed Last Taken Type AtorvaSTATin [Lipitor] 20 mg PO QHS 05/12/20 05/29/20 Unknown History lisinopriL [Zestril TAB] 40 mg PO QDAY 05/12/20 05/29/20 Unknown History metFORMIN [Glucophage] 850 mg PO BID 05/12/20 05/29/20 Unknown History Acetaminophen [Acetaminophen TAB] 650 mg PO Q4H PRN tablet 05/13/20 05/29/20 Unknown Rx Dicyclomine [Bentyl] 20 mg PO BID #20 tablet 05/13/20 05/29/20 Unknown Rx Famotidine [Pepcid] 20 mg PO BID #30 tablet 05/13/20 05/29/20 Unknown Rx carvediloL [Coreg] 6.25 mg PO BID #60 05/13/20 05/29/20 Unknown Rx Active Meds: Active Medications Lipase/Protease/Amylase (Papo Lawson 10,500 Unit) 1 each FEEDTUBE PRN PRN PRN Reason: For Clogged Feeding Tube Dexamethasone (Decadron) 6 mg PO DAILY NELSON Stop: 06/07/20 10:01 Enoxaparin Sodium (Enoxaparin) 40 mg SUB-Q QDAY@1000 NELSON Famotidine (Pepcid) 20 mg IV BID NELSON Last Admin: 05/29/20 10:34 Dose: 20 mg Documented by: Fentanyl (Sublimaze) 50 mcg IV Q10MIN PRN PRN Reason: ANALGESIA Furosemide (Lasix) 20 mg IV BID [facility] Stop: 05/29/20 22:01 Hydrophilic Ointment (Vaseline Lip Therapy) 1 applic TP Q2HR PRN PRN Reason: Dry Lips Amiodarone HCl 900 mg/ (Dextrose) 500 mls @ 33.333 mls/hr IV DIRECT NELSON; Protocol Midazolam HCl 100 mg/ Sodium (Chloride) 100 mls @ 2 mls/hr IV TITR NELSON; Protocol Last Titration: 05/29/20 10:36 Dose: 2 mg/hr, 2 mls/hr Documented by: Sodium Chloride (Nacl 0.9% 1000 Ml) 1,000 mls @ 100 mls/hr IV DIRECT NELSON Last Admin: 05/29/20 13:28 Dose: 100 mls/hr Documented by: Ceftriaxone Sodium (Rocephin/Ns 2 Gm/100 Ml) 2 gm in 100 mls @ 200 mls/hr IV Q24HR NELSON Stop: 05/31/20 12:00 Last Admin: 05/29/20 11:45 Dose: 200 mls/hr Documented by: Heparin Sodium/Sodium Chloride (Heparin/ 0.45% Nacl-25,000 Unit/500 Ml) 25,000 unit in 500 mls @ 30 mls/hr IV TITR NELSON; Protocol Fentanyl Citrate (Fentanyl Drip Premix) 2,000 mcg in 100 mls @ 6.095 mls/hr IV TITR NELSON; Protocol Azithromycin 500 mg/ Sodium (Chloride) 250 mls @ 250 mls/hr IV Q24HR NELSON; Protocol Stop: 06/02/20 10:59 Insulin Human Lispro (Humalog) 0 unit SUB-Q Q6H NELSON; Protocol Levetiracetam (Keppra) 500 mg PO BID NELSON Midazolam HCl (Versed) 2 mg IV Q10MIN PRN PRN Reason: Sedation Multi-Ingred Cream/Lotion/Oil/Oint (Artificial Tears Ophth Oint) 1 applic OU Q4HR PRN PRN Reason: Dry Eye(s) Simple Syrup (Simple Syrup) 15 ml FEEDTUBE PRN PRN PRN Reason: Hypoglycemia Simple Syrup (Simple Syrup) 30 ml FEEDTUBE PRN PRN PRN Reason: Hypoglycemia Sodium Bicarbonate (Sodium Bicarbonate) 325 mg FEEDTUBE PRN PRN PRN Reason: For Clogged Feeding Tube Sodium Chloride (Sodium Chloride Flush Syringe 10 Ml) 10 ml IV BID NELSON Last Admin: 05/29/20 10:34 Dose: 10 ml Documented by: Sodium Chloride (Sodium Chloride Flush Syringe 10 Ml) 10 ml IV PRN PRN PRN Reason: LINE FLUSH Physical Examination - Physical Exam Narrative exam: Physical Exam (reviewed in chart due to PPE conservation) Constitutional: intubated, sedated, on the vent Head, Ears, Nose: normocephalic, atraumatic Eyes: limited due to PPE conservation strategy Neck: intubated Oral: intubated Cardiovascular: limited due to PPE conservation strategy Respiratory: limited due to PPE conservation strategy GI: limited due to PPE conservation strategy Musculoskeletal: limited due to PPE conservation strategy Skin: limited due to PPE conservation strategy Hem/Lymphatic: limited due to PPE conservation strategy Psych: no agitation Neurological: sedated, intubated, on the vent, exam limited - Constitutional Vitals: Vital Signs Temp Pulse Resp BP Pulse Ox 98.9 F 82 24 148/61 98 05/29/20 11:00 05/29/20 14:50 05/29/20 14:50 05/29/20 14:50 05/29/20 14:50 Temperature -Last 24 Hours Temperature 98.9 F Temperature 98.9 F Temperature 98.4 F Temperature 98.4 F Temperature 98.8 F Results - Labs CBC & Chem 7: 05/29/20 04:43 05/29/20 04:43 Labs: Abnormal lab results 05/28/20 05/28/20 05/28/20 Range/Units 13:29 13:47 15:33 RBC (3.65-5.03) M/mm3 Hgb (10.1-14.3) gm/dl Hct (30.3-42.9) % RDW (13.2-15.2) % Lymph % (Auto) (13.4-35.0) % Lymph # (1.2-5.4) K/mm3 Seg Neutrophils % (40.0-70.0) % Seg Neutrophils # (1.8-7.7) K/mm3 D-Dimer 8780.43 H (0-234) ng/mlDDU ABG pH (7.350-7.450) pH Units ABG pO2 (80.0-90.0) mm Hg ABG HCO3 (20.0-26.0) mmol/L ABG O2 Saturation (95.0-99.0) % ABG Base Excess (-2.0-3.0) mmol/L ABG Hemoglobin (12.0-16.0) gm/dl Chloride (98-107) mmol/L Carbon Dioxide (22-30) mmol/L BUN (7-17) mg/dL Creatinine (0.6-1.2) mg/dL Glucose (65-100) mg/dL POC Glucose 248 H (70-105) AST 63 H (5-40) units/L Lactate Dehydrogenase (91-180) units/L Urine WBC (Auto) (0.0-6.0) /HPF Coronavirus (PCR) (Negative) 05/28/20 05/28/20 05/28/20 Range/Units 15:33 15:51 16:30 RBC (3.65-5.03) M/mm3 Hgb (10.1-14.3) gm/dl Hct (30.3-42.9) % RDW (13.2-15.2) % Lymph % (Auto) (13.4-35.0) % Lymph # (1.2-5.4) K/mm3 Seg Neutrophils % (40.0-70.0) % Seg Neutrophils # (1.8-7.7) K/mm3 D-Dimer (0-234) ng/mlDDU ABG pH 7.284 L (7.350-7.450) pH Units ABG pO2 273.0 H (80.0-90.0) mm Hg ABG HCO3 (20.0-26.0) mmol/L ABG O2 Saturation 99.4 H (95.0-99.0) % ABG Base Excess -6.1 L (-2.0-3.0) mmol/L ABG Hemoglobin 17.2 H (12.0-16.0) gm/dl Chloride (98-107) mmol/L Carbon Dioxide (22-30) mmol/L BUN (7-17) mg/dL Creatinine (0.6-1.2) mg/dL Glucose 152 H (65-100) mg/dL POC Glucose (70-105) AST (5-40) units/L Lactate Dehydrogenase 365 H (91-180) units/L Urine WBC (Auto) 17.0 H (0.0-6.0) /HPF Coronavirus (PCR) (Negative) 05/28/20 05/28/20 05/29/20 Range/Units 23:20 Unknown 04:35 RBC (3.65-5.03) M/mm3 Hgb (10.1-14.3) gm/dl Hct (30.3-42.9) % RDW (13.2-15.2) % Lymph % (Auto) (13.4-35.0) % Lymph # (1.2-5.4) K/mm3 Seg Neutrophils % (40.0-70.0) % Seg Neutrophils # (1.8-7.7) K/mm3 D-Dimer (0-234) ng/mlDDU ABG pH (7.350-7.450) pH Units ABG pO2 (80.0-90.0) mm Hg ABG HCO3 19.3 L (20.0-26.0) mmol/L ABG O2 Saturation (95.0-99.0) % ABG Base Excess -4.5 L (-2.0-3.0) mmol/L ABG Hemoglobin 9.7 L (12.0-16.0) gm/dl Chloride (98-107) mmol/L Carbon Dioxide (22-30) mmol/L BUN (7-17) mg/dL Creatinine (0.6-1.2) mg/dL Glucose (65-100) mg/dL POC Glucose 224 H (70-105) AST (5-40) units/L Lactate Dehydrogenase (91-180) units/L Urine WBC (Auto) (0.0-6.0) /HPF Coronavirus (PCR) Positive A (Negative) 05/29/20 05/29/20 Range/Units 04:43 04:43 RBC 3.48 L (3.65-5.03) M/mm3 Hgb 9.8 L (10.1-14.3) gm/dl Hct 29.4 L (30.3-42.9) % RDW 16.0 H (13.2-15.2) % Lymph % (Auto) 7.4 L (13.4-35.0) % Lymph # 0.7 L (1.2-5.4) K/mm3 Seg Neutrophils % 89.1 H (40.0-70.0) % Seg Neutrophils # 8.1 H (1.8-7.7) K/mm3 D-Dimer (0-234) ng/mlDDU ABG pH (7.350-7.450) pH Units ABG pO2 (80.0-90.0) mm Hg ABG HCO3 (20.0-26.0) mmol/L ABG O2 Saturation (95.0-99.0) % ABG Base Excess (-2.0-3.0) mmol/L ABG Hemoglobin (12.0-16.0) gm/dl Chloride 110.2 H (98-107) mmol/L Carbon Dioxide 18 L (22-30) mmol/L BUN 32 H (7-17) mg/dL Creatinine 1.4 H (0.6-1.2) mg/dL Glucose 180 H (65-100) mg/dL POC Glucose (70-105) AST (5-40) units/L Lactate Dehydrogenase (91-180) units/L Urine WBC (Auto) (0.0-6.0) /HPF Coronavirus (PCR) (Negative) - Imaging and Cardiology Chest x-ray: report reviewed, image reviewed (b/l airspace disease) Assessment and Plan Cultures: Coronavirus PCR: Positive 05/28/2020 blood culture: In process 05/28/2020 tracheal aspirate: Usual respiratory bobo 05/28/2020 urine culture: No growth A/P: 64-year-old female with hypertension, diastolic CHF, pulmonary hypertension, diabetes, obesity hypoventilation syndrome was admitted to the emergency room after she called EMS due to difficulty breathing. On the way to the hospital, patient developed cardiac arrest and was treated as per ACLS protocol: #Bilateral pneumonia: Secondary to COVID-19 #Acute hypoxic respiratory failure: On mechanical ventilation #Status post PEA arrest #Mild LFT elevation #Mild AVANI Recs: IV/PO Dexamethasone 6 mg daily x 10 days, day 1 IV Remdesivir for 5 days prophylactic anticoagulation based on d-dimer trend ferritin, LDH, d-dimer, CRP every 2-3 days for risk stratification and to assess disease progression Elevated d-dimer, eval for VTE abx not needed Mallory Wright MD, FACP [facility] C: [phone] O: [phone] F: [phone]
[2020-05-29 16:00] LABS: Hematocrit 28.7 % (30.3-42.9); Hemoglobin 9.3 gm/dl (10.1-14.3)
[2020-05-29 16:08] LABS: INR 1.08 (0.87-1.13); Partial Thromboplastin Time 27.2 Sec. (24.2-36.6)
--- NOTE | 2020-05-29 16:21 | Progress Note ---
Assessment and Plan - Patient Problems (1) Acute hypoxemic respiratory failure Current Visit: Yes Status: Acute Plan to address problem: Patient intubated, sedated and on ventilatory support. Critical care team consulted, wean vent as tolerated, daily spontaneous breathing trial, sedation holiday, ABG, supportive care. The high probability of a clinically significant, sudden or life threatening deterioration of the [pulmonary, renal, cardiac, neuro] system(s) required my full and direct attention, intervention and personal management. The aggregate critical care time was [90] minutes. This time is in addition to time spent performing reported procedures but includes the following: [x] Data Review and interpretation [x] Patient assessment and monitoring of vital signs [x] Documentation [x] Medication orders and management (2) Cardiac arrest Current Visit: Yes Status: Acute Plan to address problem: Cardiology team consulted, echocardiogram pending, serial cardiac enzymes, EKG, telemetry monitoring. (3) Metabolic acidosis Current Visit: Yes Status: Acute Plan to address problem: BMP, repeat BMP in a.m., supportive care. (4) Coronavirus infection Current Visit: Yes Status: Acute Plan to address problem: Infectious disease service consulted, isolation precautions, contact precautions, remdesivir therapy, IV steroid therapy, supportive care. (5) Metabolic encephalopathy Current Visit: Yes Status: Acute Plan to address problem: CT head, neuro check, BMP, supportive care. (6) DVT prophylaxis Current Visit: Yes Status: Acute Plan to address problem: SCD to bilateral lower extremities while in bed, prophylactic anticoagulation. (7) Advance care planning Current Visit: Yes Status: Acute Plan to address problem: Disease education conducted, prognosis discussed, +30 minutes. Patient is full code. History Interval history: 64 YO Female HD #2 with Cardiac Arrest, Acute Hypoxemic Respiratory Failure, Coronavirus Infection on Remdesivir therapy and Steroid therapy, Metabolic Acidosis, Metabolic Encephalopathy, KAYLIN, AVANI. Patient remains intubated and on ventilatory support today. Patient has multiple organ system failure and has poor prognosis. Patient did not experience significant medical decompensation overnight. Hospitalist Physical - Constitutional Vitals: Temp Pulse Resp BP Pulse Ox 98.9 F 82 24 148/61 98 05/29/20 11:00 05/29/20 14:50 05/29/20 14:50 05/29/20 14:50 05/29/20 14:50 General appearance: Present: mild distress, obese, other (intubated on the vent) - EENT Eyes: Present: miosis - Neck Neck: Present: supple - Respiratory Respiratory effort: labored Respiratory: bilateral: diminished, rhonchi - Cardiovascular Rhythm: regular Heart Sounds: Present: S1 & S2 - Extremities Extremity abnormal: edema Peripheral Pulses: within normal limits - Abdominal General gastrointestinal: soft, non-tender, non-distended - Integumentary Integumentary: Present: clear, dry - Psychiatric Psychiatric: no appropriate mood/affect, no intact judgment & insight, no memory intact - Neurologic Neurologic: no moves all extremities, no gait normal Results - Labs CBC & Chem 7: 05/29/20 15:10 05/29/20 04:43 Labs: Laboratory Last Values WBC 9.1 K/mm3 (4.5-11.0) 05/29/20 04:43 RBC 3.48 M/mm3 (3.65-5.03) L 05/29/20 04:43 Hgb 9.3 gm/dl (10.1-14.3) L 05/29/20 15:10 Hct 28.7 % (30.3-42.9) L 05/29/20 15:10 MCV 85 fl (79-97) 05/29/20 04:43 MCH 28 pg (28-32) 05/29/20 04:43 MCHC 33 % (30-34) 05/29/20 04:43 RDW 16.0 % (13.2-15.2) H 05/29/20 04:43 Plt Count 266 K/mm3 (140-440) 05/29/20 15:10 Lymph % (Auto) 7.4 % (13.4-35.0) L 05/29/20 04:43 [place] % (Auto) 3.3 % (0.0-7.3) 05/29/20 04:43 Eos % (Auto) 0.0 % (0.0-4.3) 05/29/20 04:43 Baso % (Auto) 0.2 % (0.0-1.8) 05/29/20 04:43 Lymph # 0.7 K/mm3 (1.2-5.4) L 05/29/20 04:43 [place] # 0.3 K/mm3 (0.0-0.8) 05/29/20 04:43 Eos # 0.0 K/mm3 (0.0-0.4) 05/29/20 04:43 Baso # 0.0 K/mm3 (0.0-0.1) 05/29/20 04:43 Seg Neutrophils % 89.1 % (40.0-70.0) H 05/29/20 04:43 Seg Neutrophils # 8.1 K/mm3 (1.8-7.7) H 05/29/20 04:43 PT 14.2 Sec. (12.2-14.9) 05/29/20 15:10 INR 1.08 (0.87-1.13) 05/29/20 15:10 APTT 27.2 Sec. (24.2-36.6) 05/29/20 15:10 D-Dimer 8780.43 ng/mlDDU (0-234) H 05/28/20 15:33 ABG pH 7.411 pH Units (7.350-7.450) 05/29/20 04:35 ABG pCO2 31.1 mm Hg 05/29/20 04:35 ABG pO2 82.0 mm Hg (80.0-90.0) 05/29/20 04:35 ABG HCO3 19.3 mmol/L (20.0-26.0) L 05/29/20 04:35 ABG O2 Saturation 96.8 % (95.0-99.0) 05/29/20 04:35 ABG O2 Content 13.1 (0.0-44) 05/29/20 04:35 ABG Base Excess -4.5 mmol/L (-2.0-3.0) L 05/29/20 04:35 ABG Hemoglobin 9.7 gm/dl (12.0-16.0) L 05/29/20 04:35 ABG Carboxyhemoglobin 1.1 % (0.0-5.0) 05/29/20 04:35 ABG Methemoglobin 0.5 % (0.0-1.5) 05/29/20 04:35 VBG pH 7.152 (7.320-7.420) L* 05/28/20 13:47 Oxyhemoglobin 95.3 % (95.0-99.0) 05/29/20 04:35 FiO2 40 % 05/29/20 04:35 Sodium 142 mmol/L (137-145) 05/29/20 04:43 Potassium 4.9 mmol/L (3.6-5.0) 05/29/20 04:43 Chloride 110.2 mmol/L (98-107) H 05/29/20 04:43 Carbon Dioxide 18 mmol/L (22-30) L 05/29/20 04:43 Anion Gap 19 mmol/L 05/29/20 04:43 BUN 32 mg/dL (7-17) H 05/29/20 04:43 Creatinine 1.4 mg/dL (0.6-1.2) H 05/29/20 04:43 Estimated GFR 38 ml/min 05/29/20 04:43 BUN/Creatinine Ratio 23 % 05/29/20 04:43 Glucose 180 mg/dL (65-100) H 05/29/20 04:43 POC Glucose 224 (70-105) H 05/28/20 23:20 Lactic Acid 1.90 mmol/L (0.7-2.0) 05/28/20 14:46 Calcium 8.4 mg/dL (8.4-10.2) 05/29/20 04:43 Ferritin 179.4 ng/mL (10.0-200.0) 05/28/20 15:33 Total Bilirubin < 0.20 mg/dL (0.1-1.2) 05/28/20 13:47 AST 63 units/L (5-40) H 05/28/20 13:47 ALT 41 units/L (7-56) 05/28/20 13:47 Alkaline Phosphatase 124 units/L (35-129) 05/28/20 13:47 Lactate Dehydrogenase 365 units/L (91-180) H 05/28/20 15:33 Total Creatine Kinase 301 units/L (30-135) H 05/28/20 13:47 CK-MB (CK-2) 4.3 ng/mL (0.0-4.0) H 05/28/20 13:47 CK-MB (CK-2) Rel Index 1.4 (0-4) 05/28/20 13:47 C-Reactive Protein 0.20 mg/dL (0.00-1.30) 05/28/20 15:33 Total Protein 5.4 g/dL (6.3-8.2) L 05/28/20 13:47 Albumin 2.6 g/dL (3.9-5) L 05/28/20 13:47 Albumin/Globulin Ratio 0.9 % 05/28/20 13:47 Procalcitonin < 0.05 ng/mL (<0.15) 05/28/20 15:33 Urine Color Yellow (Yellow) 05/28/20 16:30 Urine Turbidity Slightly-cloudy (Clear) 05/28/20 16:30 Urine pH 6.0 (5.0-7.0) 05/28/20 16:30 Ur Specific [place] 1.018 (1.003-1.030) 05/28/20 16:30 Urine Protein >500 mg/dL (Negative) 05/28/20 16:30 Urine Glucose (UA) >=500 mg/dL (Negative) 05/28/20 16:30 Urine Ketones Neg mg/dL (Negative) 05/28/20 16:30 Urine Blood Neg (Negative) 05/28/20 16:30 Urine Nitrite Neg (Negative) 05/28/20 16:30 Urine Bilirubin Neg (Negative) 05/28/20 16:30 Urine Urobilinogen < 2.0 mg/dL (<2.0) 05/28/20 16:30 Ur Leukocyte Esterase Neg (Negative) 05/28/20 16:30 Urine WBC (Auto) 17.0 /HPF (0.0-6.0) H 05/28/20 16:30 Urine RBC (Auto) 22.0 /HPF (0.0-6.0) 05/28/20 16:30 U Epithel Cells (Auto) 2.0 /HPF (0-13.0) 05/28/20 16:30 Urine Bacteria (Auto) 2+ /HPF (Negative) 05/28/20 16:30 Urine Mucus Few /HPF 05/28/20 16:30 Urine Yeast (Budding) 1+ /HPF 05/28/20 16:30 Coronavirus (PCR) Positive (Negative) A 05/28/20 Unknown Microbiology: Microbiology 05/28/20 15:45 Tracheal Aspirate Sputum Culture - Preliminary 05/28/20 16:30 Urine,Clean Catch Urine Culture - Preliminary NO GROWTH AFTER 24 HOURS 05/28/20 15:33 Peripheral/Venous Blood Culture - Preliminary Culture in Progress 05/28/20 15:40 Peripheral/Venous Blood Culture - Preliminary Culture in Progress Helm/IV: Voiding Method Indwelling Catheter IV Catheter Type [Right Peripheral IV Forearm] IV Catheter Type [Left Leg] Intra-osseous Active Medications - Current Medications Current Medications: Generic Name Dose Route Start Last Admin Trade Name Freq PRN Reason Stop Dose Admin Lipase/Protease/Amylase 1 each 05/29/20 13:[address] 10,500 Unit FEEDTUBE PRN PRN For Clogged Feeding Tube Dexamethasone 6 mg 05/29/20 15:00 Decadron PO 06/07/20 10:01 DAILY NELSON Enoxaparin Sodium 40 mg 05/29/20 14:00 Enoxaparin SUB-Q QDAY@1000 NELSON Famotidine 20 mg 05/29/20 10:00 05/29/20 10:34 Pepcid IV 20 mg BID NELSON Administration Fentanyl 50 mcg 05/29/20 14:21 Sublimaze IV Q10MIN PRN ANALGESIA Furosemide 20 mg 05/29/20 15:00 Lasix IV 05/29/20 22:01 BID NELSON Hydrophilic Ointment 1 applic 05/28/20 13:49 Vaseline Lip Therapy TP Q2HR PRN Dry Lips Amiodarone HCl 900 mg/ 500 mls @ 33.333 mls/hr 05/28/20 14:00 Dextrose IV DIRECT NELSON Protocol 1 MG/MIN Midazolam HCl 100 mg/ Sodium 100 mls @ 2 mls/hr 05/28/20 14:00 05/29/20 10:36 Chloride IV 2 mg/hr TITR NELSON 2 mls/hr Titration Protocol 2 MG/HR Sodium Chloride 1,000 mls @ 100 mls/hr 05/29/20 10:45 05/29/20 13:28 Nacl 0.9% 1000 Ml IV 100 mls/hr DIRECT NELSON Administration Ceftriaxone Sodium 2 gm in 100 mls @ 200 mls/hr 05/29/20 10:00 05/29/20 11:45 Rocephin/Ns 2 Gm/100 Ml IV 05/31/20 12:00 200 mls/hr Q24HR NELSON Administration Heparin Sodium/Sodium Chloride 25,000 unit in 500 mls @ 30 mls/hr 05/29/20 15:00 Heparin/ 0.45% Nacl-25,000 Unit/500 Ml IV TITR [facility] Protocol 1,500 UNITS/HR Fentanyl Citrate 2,000 mcg in 100 mls @ 6.095 mls/hr 05/29/20 15:00 Fentanyl Drip Premix IV TITR [facility] Protocol 1 MCG/KG/HR Azithromycin 500 mg/ Sodium 250 mls @ 250 mls/hr 05/29/20 15:00 Chloride IV 06/02/20 10:59 Q24HR [facility] Protocol REMDESIVIR 200 mg/ Sodium 250 mls @ 500 mls/hr 05/29/20 17:00 Chloride IV 05/29/20 17:29 ONCE ONE REMDESIVIR 100 mg/ Sodium 250 mls @ 500 mls/hr 05/30/20 21:00 Chloride IV 06/02/20 21:29 Q24HR@2100 [facility] Insulin Human Lispro 0 unit 05/29/20 15:00 Humalog SUB-Q Q6H [facility] Protocol Levetiracetam 500 mg 05/29/20 22:00 Keppra PO BID [facility] Midazolam HCl 2 mg 05/28/20 13:49 Versed IV Q10MIN PRN Sedation Multi-Ingred Cream/Lotion/Oil/Oint 1 applic 05/28/20 13:49 Artificial Tears Ophth Oint OU Q4HR PRN Dry Eye(s) Simple Syrup 15 ml 05/29/20 13:39 Simple Syrup FEEDTUBE PRN PRN Hypoglycemia Simple Syrup 30 ml 05/29/20 13:39 Simple Syrup FEEDTUBE PRN PRN Hypoglycemia Sodium Bicarbonate 325 mg 05/29/20 13:39 Sodium Bicarbonate FEEDTUBE PRN PRN For Clogged Feeding Tube Sodium Chloride 10 ml 05/28/20 22:00 05/29/20 10:34 Sodium Chloride Flush Syringe 10 Ml IV 10 ml BID [facility] Administration Sodium Chloride 10 ml 05/28/20 19:08 Sodium Chloride Flush Syringe 10 Ml IV PRN PRN LINE FLUSH Sodium Chloride 50 ml 05/29/20 17:30 Nacl 0.9% IV 06/02/20 21:31 2130 [facility] Nutrition/Malnutrition Assess - Dietary Evaluation Nutrition/Malnutrition Findings: Nutrition Notes Start: 05/29/20 11:45 Freq: Status: Active Protocol: Document 05/29/20 11:45 LP (Rec: 05/29/20 11:54 LP [id number]) Nutrition Notes Need for Assessment generated from: MD Order Initial or Follow up Assessment Current Diagnosis Diabetes,Hypertension,Heart Failure Other Pertinent Diagnosis Cardiac Arrest, Metabolic Encephalopathy Current Diet NPO Labs/Tests BUN 32 Cr 1.4 BG 180 Pertinent Medications Reviewed Height 5 ft 6 in Weight 121.9 kg [place] Body Weight (kg) 59.09 BMI 43.3 Weight Status Morbidly Obese Subjective/Other Information Consult for evaluation of nutrition intake. Pt on vent. TF order to be placed for plans to feed. Burn Absent Trauma Absent GI Symptoms None Current % PO Negligible Minimum of two criteria No physical signs of malnutrition #1 Nutrition Diagnosis Inadequate oral intake Etiology respiratory failure As Evidenced by Signs and Symptoms Pt on vent and unable to consume PO Is patient on ventilator? Yes Is Patient Ambulatory and/or Out of Bed No [facility] 2159.388 Kcal/Kg value to use for calculation 13 Approximate Energy Requirements Using 1585 kcal/Kg Calculation Used for Recommendations [facility] Additional Notes Protein needs are up to 148g ( up to 2.5g/kg IBW) Fluid needs are 1ml/kcal Nutrition Intervention Change Diet Order: TF Nutrition Support: Nepro at 40ml/hr Flush with 175ml q4h Kcal 1,728 Protein (gm) 78 Fluid (mL) 698 Goal #1 Meet at least 75% of kcal and protein needs Anticipated Discharge Needs: Unable to determine at this becky Follow-Up By: 06/01/20 Additional Comments Follow for TF start/tolerance
[2020-05-29] MEDS: DEXAMETHASONE 4 MG TAB PO SCH (16:27)
[2020-05-29] MEDS: FUROSEMIDE 20 MG/2 ML INJ IV SCH ×2 (16:27→22:21)
[2020-05-29] MEDS: MIDAZOLAM 100 MG in SODIUM CHLORIDE 0.9% 80 ML IV SCH (16:28)
[2020-05-29] MEDS: fentaNYL DRIP Premix 2,000 MCG/100 ML BAG IV SCH (16:29)
[2020-05-29] MEDS: HEPARIN/ 0.45% NACL DRIP 25,000 UNIT/500 ML BAG IV SCH (16:31)
[2020-05-29] MEDS: AZITHROMYCIN 500 MG in SODIUM CHLORIDE 0.9% 250ML 250 ML IV SCH (16:32)
[2020-05-29] MEDS ORDERED: REMDESIVIR 200 MG in SODIUM CHLORIDE 0.9% 250ML 250 ML IV ONE (17:00)
[2020-05-29] MEDS ORDERED: REMDESIVIR 100 MG VIAL IV ONE (17:00)
[2020-05-29] MEDS: SODIUM CHLORIDE 0.9% 50 ML IVPB IV SCH (19:28)
[2020-05-29] MEDS: INSULIN LISPRO 100 UNIT/ML VIAL 3 mL SUB-Q SCH (19:28)
[2020-05-29] MEDS: levETIRAcetam 500 MG TAB PO SCH (22:21)
[2020-05-30] MEDS: SODIUM CHLORIDE 0.9% 1000 ML 1,000 ML IV SCH ×2 (00:10→09:16)
[2020-05-30] MEDS: INSULIN LISPRO 100 UNIT/ML VIAL 3 mL SUB-Q SCH ×4 (00:10→18:24)
--- NOTE | 2020-05-30 00:16 | Consultation ---
PULMONARY CRITICAL CARE CONSULTATION NOTE CONSULTING PHYSICIAN: Dr. Jovan Motta. REASON FOR CONSULTATION: Acute hypoxemic respiratory failure, on mechanical ventilatory support. CHIEF COMPLAINT AND HISTORY OF PRESENT ILLNESS: As follows: The patient is a 64-year-old female with past medical history significant amongst other things for a diagnosis of congestive heart failure, obesity and diabetes, who presented to the Emergency Room, brought in by emergency medical services. Family had called for difficulty breathing. She was found in respiratory distress. She developed a cardiac arrest en route, she received ACLS protocol with CPR and return of spontaneous circulation. In the ER, she was intubated, placed on the mechanical ventilator. Further evaluation revealed acute hypoxemic respiratory failure, acute kidney injury, urinary tract infection. We are asked to assist with management. When I stopped by to see her, she was resting in bed, being cleaned. At that time, she had a quick run of myoclonic type jerks involving the head, facial muscles and upper extremities. She was not responding appropriately to my questions. She did open her eyes to name calling after she has the myoclonic type events. I do not have any history of vomiting or overt aspiration. With regards to tobacco use/abuse, she had apparently denied. This really is as much of the history of presentation as I have. She is also being investigated for possible COVID-19 infection. PAST MEDICAL HISTORY: Again, diabetes, congestive heart failure, hypertension, morbid obesity, obesity hypoventilation syndrome, pulmonary hypertension. PAST SURGICAL HISTORY: Unknown. MEDICATIONS: She was on at the time I stopped by to see were reviewed. Pertinent medications include the following: Amiodarone drip was going at 1 mg per minute, Rocephin 2 g IV daily, Lovenox 40 mg subcutaneous daily, Pepcid 20 mg IV b.i.d., Versed drip at 2 mg per hour. ALLERGIES: No known drug allergies. DIET: Morbidly obese, acute weight loss or gain history is unknown. FAMILY AND SOCIAL HISTORY: Apparently lived in the community. Alcohol, tobacco, or illicit drug use or abuse was denied by family. There is also family history of diabetes and hypertension. REVIEW OF SYSTEMS: Unobtainable secondary to patient's medical and mental condition. Since she has been here, no gross hematochezia or melena, no gross hematuria, no hematemesis, no bloody tracheal secretions. She has had intermittent myoclonic type jerks/possible seizure activity. Review of systems otherwise unobtainable or as in the body of the history above. PHYSICAL EXAMINATION: VITAL SIGNS: On examination at presentation in the Emergency Room revealed temperature afebrile at 98.8, no fever since admission. Her pulse at presentation was 98, respiratory rate 19, blood pressure 239/126, O2 sats were 99%, inspired oxygen concentration at that time was not recorded. When I stopped by to see her, O2 sats were 98% that was on the assist control mode of ventilation, tidal volumes I believe 500, rate of 24 and PEEP of 6 with 40% FiO2. GENERAL: She is an elderly looking, morbidly obese female, normocephalic, atraumatic, on the mechanical ventilator with mild patient ventilator dyssynchrony. HEAD, EYES, EARS, NOSE AND THROAT: Anicteric. No conjunctival erythema. Oropharynx was moist. Endotracheal tube was taped at the lips around 23-24 cm. No gross jugular venous distention. She does have a large neck circumference. Grossly, there were no palpable lymph nodes in the supraclavicular or submandibular lymph node chains. LUNGS: Auscultation of both lung shaffer revealed bilateral rhonchi and referred upper airway sounds. No wheezing. Somewhat diminished bibasilar air entry. HEART: Heart sounds 1 and 2 are heard. They were regular in rate and rhythm at the time of my evaluation without overt rubs or murmurs. Regular, tachycardia. ABDOMEN: Soft, protuberant. Bowel sounds positive, nontender, no palpable hepatosplenomegaly. EXTREMITIES: Without overt digital clubbing or cyanosis. Trace pulse pedal edema. Pedal pulses are 2+ bilaterally. NEUROLOGIC: Pupils were equal, round, about 4 mm, reactive to light. Extraocular muscle movements could not be adequately assessed. No obvious nystagmus. She has spontaneous movements to all extremities, but was not following commands appropriately. SKIN: Normal turgor in the areas examined without overt cellulitis or rash. Please see the wound care nurses and registered nurse's notes for full description of her skin. PSYCHIATRIC: Mood and affect could not be assessed. LABORATORY DATA: From my review are as follows: White cell count 6200, hemoglobin 10.2, hematocrit 31.7, platelet count 324. INR 1.03. D-dimer 8780. ABG at presentation showed a pH of 7.28, pCO2 of 44, pO2 of 273, I believe on the above-mentioned settings. The pH today is 7.41 with a pCO2 of 31, pO2 of 82 that was on 40% FiO2. Admission sodium was 140, potassium 7.2, chloride 109, bicarbonate 17, BUN 29, creatinine 1.3, glucose was 152. Lactic acid level within normal limits. AST elevated at 63. LDH up at 365. Albumin low at 2.6. Procalcitonin less than 0.05. Urinalysis negative for nitrites and leukocyte esterase. She did have 17 white cells per high power field. Coronavirus PCR screen is positive. Two sets of blood cultures, tracheal aspirate and urine cultures, no growth to date. A chest x-ray has been reviewed, essentially it shows gross cardiomegaly, small bilateral pleural effusions and increased interstitial markings bilaterally. I cannot rule out layering pleural effusions. No gross pneumothorax. Endotracheal tube tip is in place. A CT of the head and brain was also done. The report mentions no acute intracranial abnormality. KUB was also done, it shows a feeding tubing with the tip well below the diaphragm. ASSESSMENT: 1. Acute hypoxemic respiratory failure, on mechanical ventilatory support. 2. Coronavirus-19 infection. 3. Bilateral pulmonary infiltrates, bilateral pneumonia plus likely element of Pulmonary edema. 4. Bilateral pulmonary edema. 5. Bilateral pleural effusions. 6. History of congestive heart failure. 7. Morbid obesity. 8. History of pulmonary hypertension. 9. History of hypertension. 10. Diabetes. 11. Obesity hypoventilation syndrome. 12. Elevated serum inflammatory markers to include D-dimers and LDH levels. 13. Hyperkalemia at presentation. 14. Metabolic acidosis. 15. Oropharyngeal dysphagia. PLAN: We will keep her on full mechanical ventilatory support in the short term. I am also bothered about possible seizure activity in her. We will hold on weaning trials for today. I will order an EEG. We will continue the Versed drip. Consideration will be given for empiric Keppra therapy. Neurology consultation will be at the behest of the attending physician. Ventilator-associated pneumonia bundle has been introduced including aspiration precautions. Oxygen will be weaned to keep sats greater than or equal to about 92%. Bronchodilators will be scheduled in the short term and then p.r.n. thereafter. With regards to the congestive heart failure and the pleural effusions, I will order a 2D echocardiogram to get a better idea of her ejection fraction, plus or minus diuretics. She does not seem to have been on any diuretics at home. I will actually give her Lasix 40 mg IV b.i.d. x 2 doses, try and keep her on the dry side during this process. Anti-infective therapy will be continued empirically. I will add Zithromax to empirically treat for community-acquired pneumonia. She will be kept in airborne and contact isolation from a coronavirus standpoint. I will also begin her on systemic steroid therapy with dexamethasone. I will go with 6 mg p.o. daily dose for 10 days. With regards to ancillary therapies including remdesivir, Actemra and convalescent plasma, I will defer to the Infectious Disease team. We will trend the inflammatory markers. I will start her on full dose anticoagulation with IV heparin following her platelet count and H and H. She is appropriately on GI prophylaxis. I will discontinue the Lovenox DVT prophylaxis doses. Enteral nutrition will be the feeding modality of choice. Flu and pneumonia vaccination will be addressed per protocol. Chronic disease medications will be reintroduced according to the attending physician. Thank you very much for the consult. We will follow along and make further recommendations as picture progresses/becomes clearer. She is critically ill on life-sustaining interventions including mechanical ventilatory support. At this time, I spent about 40 minutes of critical care time without overlap and excluding any procedural time that may be necessary. JOB# [id number] WEN/DIAZ HAWTHORNE
[2020-05-30 04:25] LABS: ABG Base Excess -4.4 mmol/L (-2.0-3.0); ABG HCO3 18.9 mmol/L (20.0-26.0); ABG Methemoglobin 0.5 % (0.0-1.5); ABG Oxygen Saturation 98.1 % (95.0-99.0); ABG PCO2 27.2 mm Hg; ABG PH 7.46 pH Units (7.350-7.450)
--- NOTE | 2020-05-30 06:10 | XRay Report ---
CHEST 1 VIEW, 05/30/2020 4:22 AM CLINICAL INFORMATION/INDICATION: Respiratory failure COMPARISON: Chest radiograph, 05/29/2020 at 4:04 AM FINDINGS: SUPPORT DEVICES: Endotracheal tube and esophagogastric tube project in stable position. HEART: Cardia c and mediastinal contours are unchanged. LUNGS/PLEURA: Bilateral mixed interstitial and airspace disease appears slightly improved when compar ed to the prior study. No pneumothorax is visualized. ADDITIONAL FINDINGS: No additional acute findings. IMPRESSION: 1. Slight interval improvement of mixed interstitial and airspace disease. Signer Name: Jasmina Woo MD Signed: 05/30/2020 6:05 AM Workstation Name: [id number]
[2020-05-30] MEDS: HEPARIN/ 0.45% NACL DRIP 25,000 UNIT/500 ML BAG IV SCH (09:13)
[2020-05-30] MEDS: AZITHROMYCIN 500 MG in SODIUM CHLORIDE 0.9% 250ML 250 ML IV SCH (09:14)
[2020-05-30] MEDS: ENOXAPARIN 40 MG/0.4 ML INJ SUB-Q SCH (09:14)
[2020-05-30] MEDS: levETIRAcetam 500 MG TAB PO SCH ×2 (09:14→21:47)
[2020-05-30] MEDS: FAMOTIDINE 20 MG/2 ML INJ IV SCH ×2 (09:15→21:47)
[2020-05-30] MEDS: cefTRIAXone/NS 2 GM/100 ML 2 GM/100 ML BAG IV SCH (09:15)
--- NOTE | 2020-05-30 10:01 | Progress Note ---
Assessment and Plan Cultures: Coronavirus PCR: Positive 05/28/2020 blood culture: no growth 05/28/2020 tracheal aspirate: Usual respiratory bobo 05/28/2020 urine culture: No growth A/P: 64-year-old female with hypertension, diastolic CHF, pulmonary hypertension, diabetes, obesity hypoventilation syndrome was admitted to the emergency room after she called EMS due to difficulty breathing. On the way to the hospital, patient developed cardiac arrest and was treated as per ACLS protocol: #Bilateral pneumonia: Secondary to COVID-19 #Acute hypoxic respiratory failure: On mechanical ventilation #Status post PEA arrest #Mild LFT elevation #Mild AVANI Recs: IV/PO Dexamethasone 6 mg daily x 10 days, day 2 IV Remdesivir Day 2 of 5 prophylactic anticoagulation based on d-dimer trend ferritin, LDH, d-dimer, CRP every 2-3 days for risk stratification and to assess disease progression Elevated d-dimer, eval for VTE abx not needed, procal is low Mallory Wright MD, FACP [facility] C: [phone] O: [phone] F: [phone] Subjective Date of service: 05/30/20 Interval history: No fever. Remains intubated, on the vent. Objective - Exam Narrative Exam: Physical Exam (reviewed in chart due to PPE conservation) Constitutional: intubated, sedated, on the vent Head, Ears, Nose: normocephalic, atraumatic Eyes: limited due to PPE conservation strategy Neck: intubated Oral: intubated Cardiovascular: limited due to PPE conservation strategy Respiratory: limited due to PPE conservation strategy GI: limited due to PPE conservation strategy Musculoskeletal: limited due to PPE conservation strategy Skin: limited due to PPE conservation strategy Hem/Lymphatic: limited due to PPE conservation strategy Psych: no agitation Neurological: sedated, intubated, on the vent, exam limited - Constitutional Vitals: Vital Signs Temp Pulse Resp BP Pulse Ox 97.9 F 52 L 24 166/67 100 05/30/20 08:00 05/30/20 09:21 05/30/20 09:21 05/30/20 09:21 05/30/20 09:21 Temperature -Last 24 Hours Temperature 97.9 F Temperature 98.9 F Temperature 98.8 F Temperature 98.9 F Temperature 98.6 F Temperature 98.9 F - Labs CBC & Chem 7: 05/29/20 15:10 05/29/20 04:43 Labs: Abnormal lab results 05/28/20 05/28/20 05/29/20 Range/Units 13:29 Unknown 15:10 Hgb 9.3 L (10.1-14.3) gm/dl Hct 28.7 L (30.3-42.9) % Heparin Anti-Xa Level (0.3-0.7) U.I./ml ABG pH (7.350-7.450) pH Units ABG pO2 (80.0-90.0) mm Hg ABG HCO3 (20.0-26.0) mmol/L ABG Base Excess (-2.0-3.0) mmol/L ABG Hemoglobin (12.0-16.0) gm/dl POC Glucose 248 H (70-105) Coronavirus (PCR) Positive A (Negative) 05/29/20 05/30/20 05/30/20 Range/Units 17:17 00:08 00:12 Hgb (10.1-14.3) gm/dl Hct (30.3-42.9) % Heparin Anti-Xa Level 0.71 H (0.3-0.7) U.I./ml ABG pH (7.350-7.450) pH Units ABG pO2 (80.0-90.0) mm Hg ABG HCO3 (20.0-26.0) mmol/L ABG Base Excess (-2.0-3.0) mmol/L ABG Hemoglobin (12.0-16.0) gm/dl POC Glucose 147 H 195 H (70-105) Coronavirus (PCR) (Negative) 05/30/20 05/30/20 Range/Units 04:15 08:37 Hgb (10.1-14.3) gm/dl Hct (30.3-42.9) % Heparin Anti-Xa Level 0.85 H (0.3-0.7) U.I./ml ABG pH 7.460 H (7.350-7.450) pH Units ABG pO2 106.0 H (80.0-90.0) mm Hg ABG HCO3 18.9 L (20.0-26.0) mmol/L ABG Base Excess -4.4 L (-2.0-3.0) mmol/L ABG Hemoglobin 6.8 L (12.0-16.0) gm/dl POC Glucose (70-105) Coronavirus (PCR) (Negative)
[2020-05-30] MEDS: DEXAMETHASONE 4 MG TAB PO SCH (10:30)
--- NOTE | 2020-05-30 11:18 | Progress Note ---
Assessment and Plan 1. Cardiopulmonary arrest 2. Respiratory failure 3. COVID 19 infection 4. Metabolic encephalopathy 5. Acute renal failure 6. Unspecified cardiomyopathy left ventricular ejection fraction 45 to 50% 7. Type 2 diabetes mellitus 8. Essential hypertension 9. Obesity Plan. Continue supportive cardiac management. Monitor I's and O's closely Subjective Date of service: 06/06/20 Interval history: No change in clinical status Objective Vital Signs Temp Pulse Pulse Resp BP Pulse Ox 05/30/20 10:21 52 L 24 158/67 100 05/30/20 10:11 52 L 24 155/65 100 05/30/20 10:01 53 L 24 155/65 97 05/30/20 09:51 58 L 24 156/63 99 05/30/20 09:41 52 L 24 160/65 99 05/30/20 09:31 52 L 24 160/65 98 05/30/20 09:21 52 L 24 166/67 100 05/30/20 09:11 53 L 24 158/64 100 05/30/20 09:01 53 L 21 158/64 98 05/30/20 08:57 53 L 166/68 100 05/30/20 08:51 54 L 24 166/68 100 05/30/20 08:41 55 L 24 167/69 99 05/30/20 08:31 53 L 21 167/69 99 05/30/20 08:21 52 L 24 155/63 99 05/30/20 08:11 52 L 24 155/65 99 05/30/20 08:01 53 L 24 155/65 97 05/30/20 08:00 97.9 F 51 L 53 L 24 97 05/30/20 07:51 52 L 24 157/65 99 05/30/20 07:41 53 L 24 157/64 99 05/30/20 07:31 54 L 24 157/64 98 05/30/20 07:21 55 L 24 164/66 99 05/30/20 07:11 56 L 24 168/69 99 05/30/20 07:01 57 L 24 168/69 98 05/30/20 06:51 58 L 24 172/73 100 05/30/20 06:41 61 24 173/72 100 05/30/20 06:31 56 L 24 173/72 98 05/30/20 06:20 56 L 24 166/68 100 05/30/20 06:11 55 L 24 168/69 100 05/30/20 06:01 55 L 24 168/69 97 05/30/20 05:50 54 L 24 163/66 100 05/30/20 05:40 55 L 24 161/65 100 05/30/20 05:30 56 L 24 164/66 100 05/30/20 05:20 56 L 24 164/66 100 05/30/20 05:10 62 24 159/66 99 05/30/20 05:00 56 L 24 151/65 99 05/30/20 04:50 57 L 24 151/65 99 05/30/20 04:40 56 L 24 153/64 99 05/30/20 04:30 56 L 24 140/60 99 05/30/20 04:20 56 L 24 140/60 99 05/30/20 04:10 56 L 24 157/70 99 05/30/20 04:00 57 L 59 L 24 140/60 100 05/30/20 03:50 56 L 24 140/60 99 05/30/20 03:40 55 L 24 138/59 98 05/30/20 03:31 98.9 F 05/30/20 03:30 57 L 24 140/60 99 05/30/20 03:23 56 L 140/60 98 05/30/20 03:20 57 L 24 140/60 98 05/30/20 03:10 57 L 24 145/64 98 05/30/20 03:00 61 24 173/79 99 05/30/20 02:50 64 18 173/79 99 05/30/20 02:40 67 24 173/78 99 05/30/20 02:30 78 24 173/79 100 05/30/20 02:20 76 24 173/79 99 05/30/20 02:10 24 174/78 99 05/30/20 02:00 74 19 152/86 99 05/30/20 01:50 78 24 152/86 99 05/30/20 01:40 74 21 148/85 99 05/30/20 01:30 60 24 159/68 99 05/30/20 01:20 61 24 159/68 99 05/30/20 01:10 62 24 153/65 100 05/30/20 01:00 63 24 148/62 99 08/22/20 00:50 64 24 148/62 99 08/22/20 00:40 63 24 152/62 99 08/22/20 00:30 63 24 161/70 100 08/22/20 00:20 63 24 161/70 99 08/22/20 00:10 63 24 153/63 100 08/22/20 00:00 62 65 21 155/67 99 08/21/20 23:50 64 24 155/67 99 08/21/20 23:40 63 24 142/61 98 08/21/20 23:30 64 20 146/60 98 08/21/20 23:24 62 146/60 98 08/21/20 23:20 65 24 146/60 98 08/21/20 23:19 98.8 F 08/21/20 23:10 66 24 146/63 98 08/21/20 23:00 67 24 134/57 99 08/21/20 22:50 66 24 134/57 98 08/21/20 22:40 70 24 145/56 98 08/21/20 22:30 69 23 157/65 99 08/21/20 22:20 67 16 157/65 99 08/21/20 22:10 67 24 151/60 99 08/21/20 22:00 68 24 147/62 99 08/21/20 21:50 67 24 147/62 99 08/21/20 21:40 66 24 141/56 99 08/21/20 21:30 63 24 141/56 98 08/21/20 21:20 63 25 H 141/56 98 08/21/20 21:10 64 16 134/54 98 08/21/20 21:00 66 24 134/54 98 08/21/20 20:50 67 24 134/54 98 08/21/20 20:40 69 24 156/64 98 08/21/20 20:30 69 24 156/64 98 08/21/20 20:20 71 24 156/64 98 08/21/20 20:10 73 24 171/78 100 08/21/20 20:00 74 69 24 171/78 100 08/21/20 19:50 74 18 171/78 100 08/21/20 19:48 98.9 F 08/21/20 19:40 76 24 135/59 100 08/21/20 19:30 74 24 135/59 100 08/21/20 19:28 67 135/59 99 05/29/20 19:20 65 24 135/59 99 05/29/20 19:10 66 24 132/54 99 05/29/20 19:00 67 24 125/52 99 20 18:50 66 24 125/52 100 20 18:40 65 24 141/61 100 20 18:30 68 24 141/61 100 05/29/20 18:20 68 24 141/61 100 05/29/20 18:10 72 24 139/61 100 05/29/20 18:00 76 16 100 05/29/20 17:50 72 18 139/61 100 20 17:40 71 25 H 151/75 100 05/29/20 17:30 74 24 96/44 97 05/29/20 17:20 73 24 96/43 100 05/29/20 17:10 75 24 100/45 100 05/29/20 17:00 75 24 96/43 100 05/29/20 16:52 74 96/43 99 05/29/20 16:50 76 24 96/43 97 05/29/20 16:40 77 24 136/61 97 05/29/20 16:30 84 24 144/55 100 05/29/20 16:20 85 24 144/55 100 05/29/20 16:10 84 24 162/72 05/29/20 16:00 91 H 24 137/68 100 05/29/20 15:50 90 23 137/68 100 05/29/20 15:40 85 24 148/59 100 05/29/20 15:30 85 24 161/68 100 05/29/20 15:20 84 24 161/68 100 05/29/20 15:10 86 23 155/71 99 05/29/20 15:00 98.6 F 79 24 148/61 99 05/29/20 14:50 82 24 148/61 98 05/29/20 14:40 84 24 157/73 98 05/29/20 14:30 84 24 159/74 99 05/29/20 14:20 90 25 H 159/74 98 05/29/20 14:10 89 24 159/75 99 05/29/20 14:00 90 25 H 166/76 99 05/29/20 13:50 91 H 24 166/76 99 05/29/20 13:40 93 H 24 161/82 99 05/29/20 13:30 94 H 24 161/82 99 05/29/20 13:20 92 H 24 174/87 99 05/29/20 13:10 90 24 169/76 99 05/29/20 13:00 122 H 27 H 154/66 98 05/29/20 12:52 88 13 98 05/29/20 12:49 97 H 19 100 05/29/20 12:44 100 H 100 05/29/20 12:20 82 24 169/76 98 05/29/20 12:10 82 22 162/74 98 05/29/20 12:00 83 16 166/72 98 05/29/20 11:50 81 22 166/72 98 05/29/20 11:40 81 24 163/72 98 05/29/20 11:30 76 25 H 163/71 98 05/29/20 11:20 77 24 163/71 98 - Physical Examination General: Appears Well HEENT: Positive: PERRL, Normocephaly, Mucus Membranes Moist Neck: Positive: neck supple. Negative: JVD/HJR Cardiac: Positive: Regular Rate, S1/S2, PMI, Laterally Displaced Other: Detailed physical exam not done - Labs and Meds Coagulation 05/29/20 Range/Units 15:10 PT 14.2 (12.2-14.9) Sec. INR 1.08 (0.87-1.13) APTT 27.2 (24.2-36.6) Sec. CBC 05/29/20 Range/Units 15:10 Hgb 9.3 L (10.1-14.3) gm/dl Hct 28.7 L (30.3-42.9) % Plt Count 266 (140-440) K/mm3
[2020-05-30] MEDS: fentaNYL DRIP Premix 2,000 MCG/100 ML BAG IV SCH (12:15)
--- NOTE | 2020-05-30 13:04 | Progress Note ---
Assessment and Plan Acute hypoxemic respiratory failure on MVS Coronavirus-19 infection. Bilateral pulmonary infiltrates, bilateral pneumonia plus likely element of Pulmonary edema. Bilateral pulmonary edema. Bilateral pleural effusions. History of congestive heart failure. Morbid obesity. History of pulmonary hypertension. History of hypertension. Diabetes. Obesity hypoventilation syndrome. Elevated serum inflammatory markers to include D-dimers and LDH levels. Hyperkalemia at presentation. Metabolic acidosis. Oropharyngeal dysphagia. - continue Daily SAT and SBT assessment as tolerated - continue to wean supplemental oxygen for target O2 sat's > 90% acutely - VAP bundle addressed - continue lung protective strategies - continue bronchodilators with pulmonary hygiene per RT - wean per pulmonary driven protocols otherwise - continue accuchecks resumed with glycemic control per SSI (While critically ill target blood glucose of 140-180 mg/dL; avoid hypoglycemia) - sedation prn for target RASS 0 to -1 - continue to avoid benzodiazepine's, reduce the possibility of delirium - completed AB's per ID rec's - prn analgesia per CPOT score - Maintenance of sleep-wake cycle, avoid delirium - continue enteral nutritional support at goal rate as tolerated - G.I. & VTE prophylaxis - PT/OT/ROM exercises - continue mobility protocols for pressure ulcer prophylaxis - Monitor hemodynamics closely - continue other care per attending / other consultants - discharge planning ongoing concurrently .... Re-evaluate in am & prn CONDITION: CRITICAL PROGNOSIS: GUARDED CODE STATUS: FULL CODE The high probability of a clinically significant, sudden or life-threatening deterioration of the [respiratory, cardiovascular, GI & neurologic] system(s) required my full and direct attention, intervention and personal management. The aggregate critical care time was [34] minutes without overlap. Time includes spent on; [x] Data Review and interpretation [x] Patient assessment and monitoring of vital signs [x] Documentation [x] Medication orders and management Subjective Date of service: 05/30/20 Principal diagnosis: Ac hypoxemic resp failure; COVID-19; pneumonia; CHF; Pulm HTN; OHS; DM II Interval history: Patient is seen today for: Ac hypoxemic resp failure; Coronavirus-19 infection; pneumonia; Pulmonary edema; Bilateral pleural effusions; CHF; Morbid obesity; pulmonary hypertension; OHS; DM II Seen and examined at bedside; 24hour events reviewed; nursing and respiratory care staff consulted; no adverse overnight events reported to me; resting p eacefully in bed; remains on MVS; no emesis or overt aspiration; no high grade fevers Objective Vital Signs - 12hr 05/30/20 05/30/20 05/30/20 01:10 01:20 01:30 Temperature Pulse Rate 62 61 60 Pulse Rate [ From Monitor] Respiratory 24 24 24 Rate Blood Pressure 153/65 159/68 159/68 O2 Sat by Pulse 100 99 99 Oximetry 05/30/20 05/30/20 05/30/20 01:40 01:50 02:00 Temperature Pulse Rate 74 78 74 Pulse Rate [ From Monitor] Respiratory 21 24 19 Rate Blood Pressure 148/85 152/86 152/86 O2 Sat by Pulse 99 99 99 Oximetry 05/30/20 05/30/20 05/30/20 02:10 02:20 02:30 Temperature Pulse Rate 76 78 Pulse Rate [ From Monitor] Respiratory 24 24 24 Rate Blood Pressure 174/78 173/79 173/79 O2 Sat by Pulse 99 99 100 Oximetry 05/30/20 05/30/20 05/30/20 02:40 02:50 03:00 Temperature Pulse Rate 67 64 61 Pulse Rate [ From Monitor] Respiratory 24 18 24 Rate Blood Pressure 173/78 173/79 173/79 O2 Sat by Pulse 99 99 99 Oximetry 05/30/20 05/30/20 05/30/20 03:10 03:20 03:23 Temperature Pulse Rate 57 L 57 L 56 L Pulse Rate [ From Monitor] Respiratory 24 24 Rate Blood Pressure 145/64 140/60 140/60 O2 Sat by Pulse 98 98 98 Oximetry 05/30/20 05/30/20 05/30/20 03:30 03:31 03:40 Temperature 98.9 F Pulse Rate 57 L 55 L Pulse Rate [ From Monitor] Respiratory 24 24 Rate Blood Pressure 140/60 138/59 O2 Sat by Pulse 99 98 Oximetry 05/30/20 05/30/20 05/30/20 03:50 04:00 04:10 Temperature Pulse Rate 56 L 57 L 56 L Pulse Rate [ 59 L From Monitor] Respiratory 24 24 24 Rate Blood Pressure 140/60 140/60 157/70 O2 Sat by Pulse 99 100 99 Oximetry 05/30/20 05/30/20 05/30/20 04:20 04:30 04:40 Temperature Pulse Rate 56 L 56 L 56 L Pulse Rate [ From Monitor] Respiratory 24 24 24 Rate Blood Pressure 140/60 140/60 153/64 O2 Sat by Pulse 99 99 99 Oximetry 05/30/20 05/30/20 05/30/20 04:50 05:00 05:10 Temperature Pulse Rate 57 L 56 L 62 Pulse Rate [ From Monitor] Respiratory 24 24 24 Rate Blood Pressure 151/65 151/65 159/66 O2 Sat by Pulse 99 99 99 Oximetry 05/30/20 05/30/20 05/30/20 05:20 05:30 05:40 Temperature Pulse Rate 56 L 56 L 55 L Pulse Rate [ From Monitor] Respiratory 24 24 24 Rate Blood Pressure 164/66 164/66 161/65 O2 Sat by Pulse 100 100 100 Oximetry 05/30/20 05/30/20 05/30/20 05:50 06:01 06:11 Temperature Pulse Rate 54 L 55 L 55 L Pulse Rate [ From Monitor] Respiratory 24 24 24 Rate Blood Pressure 163/66 168/69 168/69 O2 Sat by Pulse 100 97 100 Oximetry 05/30/20 05/30/20 05/30/20 06:20 06:31 06:41 Temperature Pulse Rate 56 L 56 L 61 Pulse Rate [ From Monitor] Respiratory 24 24 24 Rate Blood Pressure 166/68 173/72 173/72 O2 Sat by Pulse 100 98 100 Oximetry 05/30/20 05/30/20 05/30/20 06:51 07:01 07:11 Temperature Pulse Rate 58 L 57 L 56 L Pulse Rate [ From Monitor] Respiratory 24 24 24 Rate Blood Pressure 172/73 168/69 168/69 O2 Sat by Pulse 100 98 99 Oximetry 05/30/20 05/30/20 05/30/20 07:21 07:31 07:41 Temperature Pulse Rate 55 L 54 L 53 L Pulse Rate [ From Monitor] Respiratory 24 24 24 Rate Blood Pressure 164/66 157/64 157/64 O2 Sat by Pulse 99 98 99 Oximetry 05/30/20 05/30/20 05/30/20 07:51 08:00 08:01 Temperature 97.9 F Pulse Rate 52 L 51 L 53 L Pulse Rate [ 53 L From Monitor] Respiratory 24 24 24 Rate Blood Pressure 157/65 155/65 O2 Sat by Pulse 99 97 97 Oximetry 05/30/20 05/30/20 05/30/20 08:11 08:21 08:31 Temperature Pulse Rate 52 L 52 L 53 L Pulse Rate [ From Monitor] Respiratory 24 21 Rate Blood Pressure 155/65 155/63 167/69 O2 Sat by Pulse 99 99 99 Oximetry 05/30/20 05/30/20 05/30/20 08:41 08:51 08:57 Temperature Pulse Rate 55 L 54 L 53 L Pulse Rate [ From Monitor] Respiratory 24 24 Rate Blood Pressure 167/69 166/68 166/68 O2 Sat by Pulse 99 100 100 Oximetry 05/30/20 05/30/20 05/30/20 09:01 09:11 09:21 Temperature Pulse Rate 53 L 53 L 52 L Pulse Rate [ From Monitor] Respiratory 24 24 Rate Blood Pressure 158/64 158/64 166/67 O2 Sat by Pulse 98 100 100 Oximetry 05/30/20 05/30/20 05/30/20 09:31 09:41 09:51 Temperature Pulse Rate 52 L 52 L 58 L Pulse Rate [ From Monitor] Respiratory 24 24 24 Rate Blood Pressure 160/65 160/65 156/63 O2 Sat by Pulse 98 99 99 Oximetry 05/30/20 05/30/20 05/30/20 10:01 10:11 10:21 Temperature Pulse Rate 53 L 52 L 52 L Pulse Rate [ From Monitor] Respiratory 24 24 24 Rate Blood Pressure 155/65 155/65 158/67 O2 Sat by Pulse 97 100 100 Oximetry 05/30/20 05/30/20 05/30/20 10:31 10:41 10:51 Temperature Pulse Rate 51 L 54 L 59 L Pulse Rate [ From Monitor] Respiratory 24 24 24 Rate Blood Pressure 159/67 159/67 147/63 O2 Sat by Pulse 97 100 100 Oximetry 05/30/20 05/30/20 05/30/20 11:01 11:11 11:21 Temperature Pulse Rate 62 63 61 Pulse Rate [ From Monitor] Respiratory 24 24 24 Rate Blood Pressure 128/58 128/58 129/64 O2 Sat by Pulse 98 99 100 Oximetry 05/30/20 05/30/20 05/30/20 11:31 11:41 11:51 Temperature Pulse Rate 58 L 54 L 54 L Pulse Rate [ From Monitor] Respiratory 24 24 24 Rate Blood Pressure 137/62 137/62 138/65 O2 Sat by Pulse 98 100 100 Oximetry 05/30/20 05/30/20 05/30/20 12:00 12:01 12:11 Temperature 97.1 F L Pulse Rate 53 L 54 L Pulse Rate [ 53 L From Monitor] Respiratory 24 24 24 Rate Blood Pressure 142/66 142/66 O2 Sat by Pulse 99 99 100 Oximetry 05/30/20 05/30/20 05/30/20 12:21 12:31 12:39 Temperature Pulse Rate 55 L 56 L 55 L Pulse Rate [ From Monitor] Respiratory 24 24 Rate Blood Pressure 148/68 150/67 150/67 O2 Sat by Pulse 100 99 100 Oximetry 05/30/20 12:41 Temperature Pulse Rate 55 L Pulse Rate [ From Monitor] Respiratory 24 Rate Blood Pressure 150/67 O2 Sat by Pulse 100 Oximetry Constitutional: no acute distress, other (elderly looking obese female riding set rate on MVS at rest) Eyes: non-icteric ENT: oropharynx moist, other (ETT 23 cm AYAN) Neck: supple, no lymphadenopathy, no JVD, other (ETT 23 cm AYAN) Ascultation: Bilateral: diminished breath sounds, rhonchi Percussion: Bilateral: not dull Cardiovascular: regular rate and rhythm Gastrointestinal: normoactive bowel sounds, soft, non-tender, non-distended Integumentary: normal Extremities: no cyanosis, no edema, pink and warm, pulses normal, no ischemia or petechiae Neurologic: non-focal exam (grossly), pupils equal and round, unable to assess Psychiatric: other (unable to assess re: AMS) CBC and BMP: 06/04/20 04:19 06/04/20 04:19 ABG, PT/INR, D-dimer: ABG ABG pH 7.460 pH Units (7.350-7.450) H 05/30/20 04:15 ABG pCO2 27.2 mm Hg 05/30/20 04:15 ABG pO2 106.0 mm Hg (80.0-90.0) H 05/30/20 04:15 ABG O2 Saturation 98.1 % (95.0-99.0) 05/30/20 04:15 PT/INR, D-dimer PT 14.2 Sec. (12.2-14.9) 05/29/20 15:10 INR 1.08 (0.87-1.13) 05/29/20 15:10 D-Dimer 8780.43 ng/mlDDU (0-234) H 05/28/20 15:33 Abnormal lab findings: Abnormal Labs 05/28/20 05/28/20 05/28/20 13:29 13:47 13:47 RBC Hgb Hct RDW 15.3 H Lymph % (Auto) Lymph # Seg Neutrophils % Seg Neutrophils # D-Dimer Heparin Anti-Xa Level ABG pH ABG pO2 ABG HCO3 ABG O2 Saturation ABG Base Excess ABG Hemoglobin VBG pH Potassium 6.6 H* Chloride 109.2 H Carbon Dioxide 17 L BUN 29 H Creatinine 1.3 H Glucose 265 H POC Glucose 248 H Lactic Acid Calcium 8.1 L AST 63 H Lactate Dehydrogenase Total Creatine Kinase 301 H CK-MB (CK-2) 4.3 H Total Protein 5.4 L Albumin 2.6 L Urine WBC (Auto) Coronavirus (PCR) 05/28/20 05/28/20 05/28/20 13:47 13:47 14:46 RBC Hgb Hct RDW Lymph % (Auto) Lymph # Seg Neutrophils % Seg Neutrophils # D-Dimer Heparin Anti-Xa Level ABG pH ABG pO2 ABG HCO3 ABG O2 Saturation ABG Base Excess ABG Hemoglobin VBG pH 7.152 L* Potassium 7.2 H* Chloride Carbon Dioxide BUN Creatinine Glucose POC Glucose Lactic Acid 3.40 H* Calcium AST Lactate Dehydrogenase Total Creatine Kinase CK-MB (CK-2) Total Protein Albumin Urine WBC (Auto) Coronavirus (PCR) 05/28/20 05/28/20 05/28/20 15:33 15:33 15:51 RBC Hgb Hct RDW Lymph % (Auto) Lymph # Seg Neutrophils % Seg Neutrophils # D-Dimer 8780.43 H Heparin Anti-Xa Level ABG pH 7.284 L ABG pO2 273.0 H ABG HCO3 ABG O2 Saturation 99.4 H ABG Base Excess -6.1 L ABG Hemoglobin 17.2 H VBG pH Potassium Chloride Carbon Dioxide BUN Creatinine Glucose 152 H POC Glucose Lactic Acid Calcium AST Lactate Dehydrogenase 365 H Total Creatine Kinase CK-MB (CK-2) Total Protein Albumin Urine WBC (Auto) Coronavirus (PCR) 05/28/20 05/28/20 05/28/20 16:30 23:20 Unknown RBC Hgb Hct RDW Lymph % (Auto) Lymph # Seg Neutrophils % Seg Neutrophils # D-Dimer Heparin Anti-Xa Level ABG pH ABG pO2 ABG HCO3 ABG O2 Saturation ABG Base Excess ABG Hemoglobin VBG pH Potassium Chloride Carbon Dioxide BUN Creatinine Glucose POC Glucose 224 H Lactic Acid Calcium AST Lactate Dehydrogenase Total Creatine Kinase CK-MB (CK-2) Total Protein Albumin Urine WBC (Auto) 17.0 H Coronavirus (PCR) Positive A 05/29/20 05/29/20 05/29/20 04:35 04:43 04:43 RBC 3.48 L Hgb 9.8 L Hct 29.4 L RDW 16.0 H Lymph % (Auto) 7.4 L Lymph # 0.7 L Seg Neutrophils % 89.1 H Seg Neutrophils # 8.1 H D-Dimer Heparin Anti-Xa Level ABG pH ABG pO2 ABG HCO3 19.3 L ABG O2 Saturation ABG Base Excess -4.5 L ABG Hemoglobin 9.7 L VBG pH Potassium Chloride 110.2 H Carbon Dioxide 18 L BUN 32 H Creatinine 1.4 H Glucose 180 H POC Glucose Lactic Acid Calcium AST Lactate Dehydrogenase Total Creatine Kinase CK-MB (CK-2) Total Protein Albumin Urine WBC (Auto) Coronavirus (PCR) 05/29/20 05/29/20 05/30/20 15:10 17:17 00:08 RBC Hgb 9.3 L Hct 28.7 L RDW Lymph % (Auto) Lymph # Seg Neutrophils % Seg Neutrophils # D-Dimer Heparin Anti-Xa Level 0.71 H ABG pH ABG pO2 ABG HCO3 ABG O2 Saturation ABG Base Excess ABG Hemoglobin VBG pH Potassium Chloride Carbon Dioxide BUN Creatinine Glucose POC Glucose 147 H Lactic Acid Calcium AST Lactate Dehydrogenase Total Creatine Kinase CK-MB (CK-2) Total Protein Albumin Urine WBC (Auto) Coronavirus (PCR) 05/30/20 05/30/20 05/30/20 00:12 04:15 08:37 RBC Hgb Hct RDW Lymph % (Auto) Lymph # Seg Neutrophils % Seg Neutrophils # D-Dimer Heparin Anti-Xa Level 0.85 H ABG pH 7.460 H ABG pO2 106.0 H ABG HCO3 18.9 L ABG O2 Saturation ABG Base Excess -4.4 L ABG Hemoglobin 6.8 L VBG pH Potassium Chloride Carbon Dioxide BUN Creatinine Glucose POC Glucose 195 H Lactic Acid Calcium AST Lactate Dehydrogenase Total Creatine Kinase CK-MB (CK-2) Total Protein Albumin Urine WBC (Auto) Coronavirus (PCR) Chest x-ray: image reviewed Allied health notes reviewed: nursing
[2020-05-30] MEDS ORDERED: SUCCINYLCHOLINE CHLORIDE 200 MG/10 ML INJ MDV ONE (14:04)
[2020-05-30] MEDS ORDERED: ETOMIDATE 20 MG/10 ML INJ IV ONE (14:04)
[2020-05-30] MEDS ORDERED: MIDAZOLAM 5 MG/5 ML INJ MDV IV ONE (14:04)
[2020-05-30] MEDS: FUROSEMIDE 20 MG/2 ML INJ IV SCH (17:17)
--- NOTE | 2020-05-30 18:35 | Cat Scan Report ---
CT head/brain wo con INDICATION / CLINICAL INFORMATION: 64 years Female; MAIN. TECHNIQUE: Routine CT head without contrast. All CT scans at this location are performed using CT dos e reduction for ALARA by means of automated exposure control. COMPARISON: None. FINDINGS: BRAIN / INTRACRANIAL CONTENTS: No acute hemorrhage, mass effect, midline shift, hydrocephalus, or acu te, large territorial infarct. No chronic infarct appreciated. There may be minimal, asymmetrically p rominent posterior frontal/anterior parietal lobe atrophy. No significant white matter abnormality. CRANIOCERVICAL JUNCTION: No significant abnormality. ORBITS: No significant abnormality of visualized orbits. SINUSES / MASTOIDS: Mild mucosal thickening seen in the ethmoids. Mild to moderate mucosal thickening also seen in the left sphenoid sinus. ADDITIONAL FINDINGS: Prominent soft tissue is seen in the roof the nasopharynx, presumably related to reactive adenoidal tissue. Please clinically correlate. Note, patient is intubated. Periodontal disease is seen along the medial incisor along the left maxillary alveolar ridge. Atherosclerotic disease is seen in the anterior and posterior circulation. IMPRESSION: 1. No focal mass, hemorrhage, hydrocephalus, or acute, large territorial infarct. Signer Name: Mike Torres MD, III Signed: 05/30/2020 6:31 PM Workstation Name: [id number]
[2020-05-30] MEDS: REMDESIVIR 100 MG in SODIUM CHLORIDE 0.9% 250ML 250 ML IV SCH (21:46)
[2020-05-30] MEDS: SODIUM CHLORIDE 0.9% 50 ML IVPB IV SCH (21:47)
[2020-05-31] MEDS: INSULIN LISPRO 100 UNIT/ML VIAL 3 mL SUB-Q SCH ×4 (01:11→18:11)
[2020-05-31] MEDS: fentaNYL DRIP Premix 2,000 MCG/100 ML BAG IV SCH ×2 (01:11→10:38)
[2020-05-31 03:16] LABS: Hematocrit 27.5 % (30.3-42.9); Hemoglobin 9.2 gm/dl (10.1-14.3)
[2020-05-31 04:50] LABS: ABG Base Excess -5.5 mmol/L (-2.0-3.0); ABG HCO3 18.6 mmol/L (20.0-26.0); ABG Methemoglobin 0.4 % (0.0-1.5); ABG Oxygen Saturation 97.5 % (95.0-99.0); ABG PCO2 30.9 mm Hg; ABG PH 7.398 pH Units (7.350-7.450); ABG PO2 94.7 mm Hg (80.0-90.0)
[2020-05-31] MEDS: FUROSEMIDE 20 MG/2 ML INJ IV SCH ×2 (06:13→18:11)
[2020-05-31] MEDS: HEPARIN/ 0.45% NACL DRIP 25,000 UNIT/500 ML BAG IV SCH (08:05)
[2020-05-31] MEDS: DEXAMETHASONE 4 MG TAB PO SCH (10:29)
[2020-05-31] MEDS: FAMOTIDINE 20 MG/2 ML INJ IV SCH ×2 (10:29→21:51)
[2020-05-31] MEDS: levETIRAcetam 500 MG TAB PO SCH ×2 (10:29→21:51)
--- NOTE | 2020-05-31 10:33 | Progress Note ---
Assessment and Plan 1. Cardiopulmonary arrest 2. Respiratory failure 3. COVID 19 infection 4. Metabolic encephalopathy 5. Acute renal failure 6. Unspecified cardiomyopathy left ventricular ejection fraction 45 to 50% 7. Type 2 diabetes mellitus 8. Essential hypertension 9. Obesity Plan. Continue supportive cardiac management. Monitor I's and O's closely Subjective Date of service: 05/31/20 Principal diagnosis: Ac hypoxemic resp failure; COVID-19; pneumonia; CHF; Pulm HTN; OHS; DM II Interval history: No change in clinical status Objective Vital Signs Temp Pulse Pulse Resp BP Pulse Ox 05/31/20 09:35 69 70 L 05/31/20 08:31 54 L 24 184/79 98 05/31/20 08:21 56 L 24 197/94 100 05/31/20 08:11 63 24 187/67 100 05/31/20 08:01 56 L 24 187/67 99 05/31/20 08:00 97.9 F 56 L 24 99 05/31/20 07:51 52 L 24 170/68 100 05/31/20 07:41 53 L 24 169/68 100 05/31/20 07:31 54 L 24 169/68 99 05/31/20 07:21 50 L 24 151/61 100 05/31/20 07:11 49 L 24 154/60 100 05/31/20 07:01 48 L 23 154/60 98 05/31/20 06:51 47 L 24 151/61 100 05/31/20 06:41 48 L 24 150/60 100 05/31/20 06:31 48 L 24 150/60 97 05/31/20 06:21 48 L 24 152/65 100 05/31/20 06:11 49 L 24 151/48 100 05/31/20 06:01 49 L 24 151/48 99 05/31/20 05:51 49 L 24 154/63 100 05/31/20 05:41 48 L 24 146/55 100 05/31/20 05:31 47 L 24 146/55 98 05/31/20 05:21 48 L 24 149/59 100 05/31/20 05:11 48 L 24 144/53 99 05/31/20 05:01 48 L 24 144/53 97 05/31/20 04:50 48 L 24 150/58 100 05/31/20 04:41 48 L 24 141/58 99 05/31/20 04:30 48 L 24 141/58 96 05/31/20 04:21 50 L 24 123/46 98 05/31/20 04:11 51 L 24 135/50 98 05/31/20 04:01 48 L 24 135/50 96 05/31/20 04:00 98.0 F 50 L 50 L 24 95 05/31/20 03:51 47 L 24 149/55 99 05/31/20 03:41 48 L 24 165/64 99 05/31/20 03:33 49 L 165/64 100 05/31/20 03:31 52 L 24 165/64 98 05/31/20 03:21 55 L 24 168/68 100 05/31/20 03:11 55 L 24 164/61 100 05/31/20 03:01 52 L 24 169/68 98 05/31/20 02:51 53 L 24 164/64 100 05/31/20 02:41 50 L 24 165/60 100 05/31/20 02:31 49 L 24 164/61 97 05/31/20 02:21 49 L 24 165/60 100 05/31/20 02:11 50 L 24 171/64 100 05/31/20 02:01 50 L 24 171/64 97 05/31/20 01:51 51 L 24 179/67 100 05/31/20 01:41 52 L 24 181/73 100 05/31/20 01:31 55 L 24 181/73 98 05/31/20 01:21 59 L 24 161/67 100 05/31/20 01:11 55 L 24 157/58 100 05/31/20 01:01 51 L 24 157/58 97 05/31/20 00:51 50 L 23 160/63 100 05/31/20 00:41 50 L 24 172/71 100 05/31/20 00:31 51 L 24 165/65 98 05/31/20 00:21 53 L 23 172/71 100 05/31/20 00:11 54 L 24 171/70 100 05/31/20 00:03 53 L 24 171/70 100 05/31/20 00:01 55 L 24 171/70 98 05/31/20 00:00 98.9 F 54 L 54 L 24 95 05/30/20 23:51 53 L 23 170/71 100 05/30/20 23:41 55 L 24 173/72 100 05/30/20 23:31 54 L 24 173/72 99 05/30/20 23:21 54 L 23 174/73 100 05/30/20 23:11 54 L 24 171/70 100 05/30/20 23:01 55 L 24 171/70 98 05/30/20 22:51 56 L 23 168/68 100 05/30/20 22:41 58 L 24 174/72 100 05/30/20 22:31 59 L 24 174/72 98 05/30/20 22:21 58 L 23 168/70 100 05/30/20 22:11 58 L 24 139/52 100 05/30/20 22:01 56 L 24 163/65 97 05/30/20 21:51 56 L 23 160/62 100 05/30/20 21:41 58 L 24 150/56 99 05/30/20 21:31 60 24 139/52 97 05/30/20 21:21 62 24 150/56 99 05/30/20 21:11 62 24 160/62 99 05/30/20 21:01 65 24 171/74 99 05/30/20 20:51 66 24 172/74 100 05/30/20 20:41 60 24 145/58 99 05/30/20 20:34 59 L 05/30/20 20:31 59 L 24 145/58 97 05/30/20 20:21 58 L 24 160/62 98 05/30/20 20:11 59 L 24 170/69 98 05/30/20 20:01 61 24 170/69 97 05/30/20 20:00 98.7 F 61 25 H 95 05/30/20 19:51 64 24 162/67 99 05/30/20 19:50 65 162/67 99 05/30/20 19:41 62 24 161/68 98 05/30/20 19:31 62 24 161/68 95 05/30/20 19:21 62 24 165/65 98 05/30/20 19:11 65 24 172/73 98 05/30/20 19:01 67 24 172/73 95 05/30/20 18:51 68 24 180/79 98 05/30/20 18:41 74 24 197/97 99 05/30/20 18:31 84 12 197/97 95 05/30/20 18:21 73 24 170/74 97 05/30/20 18:12 82 24 05/30/20 17:31 61 24 170/74 98 05/30/20 17:21 64 24 176/75 100 05/30/20 17:11 65 24 186/85 99 05/30/20 17:01 68 24 186/85 98 05/30/20 16:51 70 24 187/85 100 05/30/20 16:41 71 24 193/85 99 05/30/20 16:31 73 24 194/88 96 05/30/20 16:27 72 197/87 99 05/30/20 16:21 74 24 218/181 98 05/30/20 16:11 69 24 135/60 100 05/30/20 16:01 62 25 H 135/60 95 05/30/20 16:00 97.8 F 54 L 62 25 H 95 05/30/20 15:51 57 L 24 150/63 98 05/30/20 15:41 56 L 24 162/72 99 05/30/20 15:31 55 L 24 163/66 98 05/30/20 15:21 54 L 24 162/72 100 05/30/20 15:11 55 L 24 145/57 99 05/30/20 15:01 55 L 24 145/57 96 05/30/20 14:51 56 L 24 141/60 98 05/30/20 14:41 56 L 24 138/59 97 05/30/20 14:31 55 L 24 138/59 96 05/30/20 14:21 54 L 24 164/74 99 05/30/20 14:11 56 L 24 173/84 100 05/30/20 14:01 61 24 165/83 98 05/30/20 13:51 62 23 173/84 100 05/30/20 13:41 59 L 24 169/77 100 05/30/20 13:31 56 L 24 163/72 99 05/30/20 13:21 56 L 24 169/77 100 05/30/20 13:11 56 L 24 159/69 100 05/30/20 13:01 56 L 24 159/69 99 05/30/20 12:51 55 L 24 161/76 100 05/30/20 12:41 55 L 24 150/67 100 05/30/20 12:39 55 L 150/67 100 05/30/20 12:31 56 L 24 150/67 99 05/30/20 12:21 55 L 24 148/68 100 05/30/20 12:11 54 L 24 142/66 100 05/30/20 12:01 53 L 24 142/66 99 05/30/20 12:00 97.1 F L 55 L 53 L 24 99 05/30/20 11:51 54 L 24 138/65 100 05/30/20 11:41 54 L 24 137/62 100 05/30/20 11:31 58 L 24 137/62 98 05/30/20 11:21 61 24 129/64 100 05/30/20 11:11 63 24 128/58 99 05/30/20 11:01 62 24 128/58 98 05/30/20 10:51 59 L 24 147/63 100 05/30/20 10:41 54 L 24 159/67 100 - Physical Examination General: Appears Well HEENT: Positive: PERRL, Normocephaly, Mucus Membranes Moist Neck: Positive: neck supple. Negative: JVD/HJR Cardiac: Positive: Regular Rate, S1/S2. Negative: S3, S4 Lungs: Positive: Rhonchi Abdomen: Positive: Unremarkable, Active Bowel Sounds Extremities: Absent: edema - Labs and Meds CBC 05/31/20 Range/Units 02:16 Hgb 9.2 L (10.1-14.3) gm/dl Hct 27.5 L (30.3-42.9) % Plt Count 251 (140-440) K/mm3
--- NOTE | 2020-05-31 11:01 | XRay Report ---
CHEST 1 VIEW INDICATION: follow up respiratory failure. COMPARISON: One day prior. FINDINGS: Support devices: Unchanged. Heart: Stable. Lungs/Pleura: Pulmonary opacities and small effusions are relatively stable. No pneumothorax. IMPRESSION: 1. No significant change accounting for differences in positioning and lung volumes. Signer Name: Ruel May MD Signed: 05/31/2020 10:56 AM Workstation Name: [id number]
[2020-05-31] MEDS: LISINOPRIL 20 MG TAB PO SCH ×2 (11:18→21:50)
--- NOTE | 2020-05-31 12:36 | Progress Note ---
Assessment and Plan Cultures: Coronavirus PCR: Positive 05/28/2020 blood culture: no growth 05/28/2020 tracheal aspirate: Usual respiratory bobo 05/28/2020 urine culture: No growth A/P: 64-year-old female with hypertension, diastolic CHF, pulmonary hypertension, diabetes, obesity hypoventilation syndrome was admitted to the emergency room after she called EMS due to difficulty breathing. On the way to the hospital, patient developed cardiac arrest and was treated as per ACLS protocol: #Bilateral pneumonia: Secondary to COVID-19 #Acute hypoxic respiratory failure: On mechanical ventilation #Status post PEA arrest #Mild LFT elevation #Mild AVANI Recs: IV/PO Dexamethasone 6 mg daily x 10 days, day 3 IV Remdesivir Day 3 of 5 prophylactic anticoagulation based on d-dimer per protocol trend ferritin, LDH, d-dimer, CRP every 2-3 days for risk stratification and to assess disease progression Mallory Wright MD, FACP [facility] ([facility] C: [phone] O: [phone] F: [phone] Subjective Date of service: 05/31/20 Principal diagnosis: Ac hypoxemic resp failure; COVID-19; pneumonia; CHF; Pulm HTN; OHS; DM II Interval history: No fever. Remains intubated, on the vent. Objective - Exam Narrative Exam: Physical Exam (reviewed in chart due to PPE conservation) Constitutional: intubated, sedated, on the vent Head, Ears, Nose: normocephalic, atraumatic Eyes: limited due to PPE conservation strategy Neck: intubated Oral: intubated Cardiovascular: limited due to PPE conservation strategy Respiratory: limited due to PPE conservation strategy GI: limited due to PPE conservation strategy Musculoskeletal: limited due to PPE conservation strategy Skin: limited due to PPE conservation strategy Hem/Lymphatic: limited due to PPE conservation strategy Psych: no agitation Neurological: sedated, intubated, on the vent, exam limited - Constitutional Vitals: Vital Signs Temp Pulse Resp BP Pulse Ox 97.8 F 66 24 213/86 99 05/31/20 12:00 05/31/20 11:18 05/31/20 11:01 05/31/20 11:18 05/31/20 10:51 Temperature -Last 24 Hours Temperature 97.8 F Temperature 97.9 F Temperature 98.0 F Temperature 98 F Temperature 98.9 F Temperature 98.7 F Temperature 98.7 F Temperature 97.8 F - Labs CBC & Chem 7: 05/31/20 02:16 05/29/20 04:43 Labs: Abnormal lab results 05/30/20 05/30/20 05/30/20 Range/Units 06:07 12:33 15:58 Hgb (10.1-14.3) gm/dl Hct (30.3-42.9) % Heparin Anti-Xa Level 1.03 H (0.3-0.7) U.I./ml ABG pO2 (80.0-90.0) mm Hg ABG HCO3 (20.0-26.0) mmol/L ABG Base Excess (-2.0-3.0) mmol/L ABG Hemoglobin (12.0-16.0) gm/dl POC Glucose 182 H 187 H (70-105) 05/30/20 05/31/20 05/31/20 Range/Units 23:36 02:16 03:55 Hgb 9.2 L (10.1-14.3) gm/dl Hct 27.5 L (30.3-42.9) % Heparin Anti-Xa Level (0.3-0.7) U.I./ml ABG pO2 94.7 H (80.0-90.0) mm Hg ABG HCO3 18.6 L (20.0-26.0) mmol/L ABG Base Excess -5.5 L (-2.0-3.0) mmol/L ABG Hemoglobin 7.9 L (12.0-16.0) gm/dl POC Glucose 185 H (70-105) 05/31/20 05/31/20 Range/Units 06:16 12:20 Hgb (10.1-14.3) gm/dl Hct (30.3-42.9) % Heparin Anti-Xa Level (0.3-0.7) U.I./ml ABG pO2 (80.0-90.0) mm Hg ABG HCO3 (20.0-26.0) mmol/L ABG Base Excess (-2.0-3.0) mmol/L ABG Hemoglobin (12.0-16.0) gm/dl POC Glucose 160 H 128 H (70-105)
[2020-05-31] MEDS: hydrALAZINE 20 MG/1 ML INJ IV SCH ×3 (13:34→21:51)
[2020-05-31 13:45] LABS: Alanine Aminotransferase 18 units/L (7-56); Albumin 2.4 g/dL (3.9-5); BUN/Creatinine Ratio 30; Blood Urea Nitrogen 48 mg/dL (7-17); Calcium 8.3 mg/dL (8.4-10.2); Hemolysis Index 49
[2020-05-31] MEDS: MIDAZOLAM 100 MG in SODIUM CHLORIDE 0.9% 80 ML IV SCH (19:30)
--- NOTE | 2020-05-31 21:07 | Progress Note ---
Assessment and Plan - Patient Problems (1) Acute hypoxemic respiratory failure Current Visit: Yes Status: Acute Plan to address problem: Patient intubated, sedated and on ventilatory support. Critical care team consulted, wean vent as tolerated, daily spontaneous breathing trial, sedation holiday, ABG, supportive care. The high probability of a clinically significant, sudden or life threatening deterioration of the [pulmonary, renal, cardiac, neuro] system(s) required my full and direct attention, intervention and personal management. The aggregate critical care time was [90] minutes. This time is in addition to time spent performing reported procedures but includes the following: [x] Data Review and interpretation [x] Patient assessment and monitoring of vital signs [x] Documentation [x] Medication orders and management (2) Cardiac arrest Current Visit: Yes Status: Acute Plan to address problem: Cardiology team consulted, echocardiogram pending, serial cardiac enzymes, EKG, telemetry monitoring. (3) Metabolic acidosis Current Visit: Yes Status: Acute Plan to address problem: BMP, repeat BMP in a.m., supportive care. (4) Coronavirus infection Current Visit: Yes Status: Acute Plan to address problem: Infectious disease service consulted, isolation precautions, contact precautions, remdesivir therapy, IV steroid therapy, supportive care. (5) Metabolic encephalopathy Current Visit: Yes Status: Acute Plan to address problem: CT head, neuro check, BMP, supportive care. (6) DVT prophylaxis Current Visit: Yes Status: Acute Plan to address problem: SCD to bilateral lower extremities while in bed, prophylactic anticoagulation. (7) Advance care planning Current Visit: Yes Status: Acute Plan to address problem: Disease education conducted, prognosis discussed, +30 minutes. Patient is full code. History Interval history: 64 YO Female HD #3 with Cardiac Arrest, Acute Hypoxemic Respiratory Failure, Coronavirus Infection on Remdesivir therapy and Steroid therapy, Metabolic Acidosis, Metabolic Encephalopathy, KAYLIN, AVANI. Patient remains intubated and on ventilatory support today. Patient has multiple organ system failure and has poor prognosis. Patient did not experience significant medical decompensation overnight. Hospitalist Physical - Constitutional Vitals: Temp Pulse Resp BP Pulse Ox 98.0 F 80 24 120/66 99 05/31/20 20:00 05/31/20 20:11 05/31/20 20:11 05/31/20 20:11 05/31/20 20:11 General appearance: Present: mild distress, obese, other (intubated on the vent) - EENT Eyes: Present: miosis ENT: hearing decreased - Neck Neck: Present: supple - Respiratory Respiratory effort: labored Respiratory: bilateral: diminished - Cardiovascular Rhythm: regular Heart Sounds: Present: S1 & S2 - Extremities Extremities: no ischemia (For) Peripheral Pulses: within normal limits - Abdominal General gastrointestinal: soft, non-tender, non-distended - Integumentary Integumentary: Present: clear, dry - Psychiatric Psychiatric: no appropriate mood/affect, no intact judgment & insight, no memory intact - Neurologic Neurologic: no gait normal Results - Labs CBC & Chem 7: 05/31/20 02:16 05/31/20 13:03 Labs: Laboratory Last Values WBC 9.1 K/mm3 (4.5-11.0) 05/29/20 04:43 RBC 3.48 M/mm3 (3.65-5.03) L 05/29/20 04:43 Hgb 9.2 gm/dl (10.1-14.3) L 05/31/20 02:16 Hct 27.5 % (30.3-42.9) L 05/31/20 02:16 MCV 85 fl (79-97) 05/29/20 04:43 MCH 28 pg (28-32) 05/29/20 04:43 MCHC 33 % (30-34) 05/29/20 04:43 RDW 16.0 % (13.2-15.2) H 05/29/20 04:43 Plt Count 251 K/mm3 (140-440) 05/31/20 02:16 Lymph % (Auto) 7.4 % (13.4-35.0) L 05/29/20 04:43 [place] % (Auto) 3.3 % (0.0-7.3) 05/29/20 04:43 Eos % (Auto) 0.0 % (0.0-4.3) 05/29/20 04:43 Baso % (Auto) 0.2 % (0.0-1.8) 05/29/20 04:43 Lymph # 0.7 K/mm3 (1.2-5.4) L 05/29/20 04:43 [place] # 0.3 K/mm3 (0.0-0.8) 05/29/20 04:43 Eos # 0.0 K/mm3 (0.0-0.4) 05/29/20 04:43 Baso # 0.0 K/mm3 (0.0-0.1) 05/29/20 04:43 Seg Neutrophils % 89.1 % (40.0-70.0) H 05/29/20 04:43 Seg Neutrophils # 8.1 K/mm3 (1.8-7.7) H 05/29/20 04:43 PT 14.2 Sec. (12.2-14.9) 05/29/20 15:10 INR 1.08 (0.87-1.13) 05/29/20 15:10 APTT 27.2 Sec. (24.2-36.6) 05/29/20 15:10 D-Dimer 8780.43 ng/mlDDU (0-234) H 05/28/20 15:33 Heparin Anti-Xa Level 0.60 U.I./ml (0.3-0.7) 05/31/20 09:05 ABG pH 7.398 pH Units (7.350-7.450) 05/31/20 03:55 ABG pCO2 30.9 mm Hg 05/31/20 03:55 ABG pO2 94.7 mm Hg (80.0-90.0) H 05/31/20 03:55 ABG HCO3 18.6 mmol/L (20.0-26.0) L 05/31/20 03:55 ABG O2 Saturation 97.5 % (95.0-99.0) 05/31/20 03:55 ABG O2 Content 10.8 (0.0-44) 05/31/20 03:55 ABG Base Excess -5.5 mmol/L (-2.0-3.0) L 05/31/20 03:55 ABG Hemoglobin 7.9 gm/dl (12.0-16.0) L 05/31/20 03:55 ABG Carboxyhemoglobin 1.1 % (0.0-5.0) 05/31/20 03:55 ABG Methemoglobin 0.4 % (0.0-1.5) 05/31/20 03:55 VBG pH 7.152 (7.320-7.420) L* 05/28/20 13:47 Oxyhemoglobin 96.0 % (95.0-99.0) 05/31/20 03:55 FiO2 40 % 05/31/20 03:55 Sodium 140 mmol/L (137-145) 05/31/20 13:03 Potassium 4.3 mmol/L (3.6-5.0) 05/31/20 13:03 Chloride 106.0 mmol/L (98-107) 05/31/20 13:03 Carbon Dioxide 18 mmol/L (22-30) L 05/31/20 13:03 Anion Gap 20 mmol/L 05/31/20 13:03 BUN 48 mg/dL (7-17) H 05/31/20 13:03 Creatinine 1.6 mg/dL (0.6-1.2) H 05/31/20 13:03 Estimated GFR 33 ml/min 05/31/20 13:03 BUN/Creatinine Ratio 30 % 05/31/20 13:03 Glucose 115 mg/dL (65-100) H 05/31/20 13:03 POC Glucose 159 (70-105) H 05/31/20 18:13 Lactic Acid 1.90 mmol/L (0.7-2.0) 05/28/20 14:46 Calcium 8.3 mg/dL (8.4-10.2) L 05/31/20 13:03 Ferritin 179.4 ng/mL (10.0-200.0) 05/28/20 15:33 Total Bilirubin < 0.20 mg/dL (0.1-1.2) 05/31/20 13:03 AST 15 units/L (5-40) 05/31/20 13:03 ALT 18 units/L (7-56) 05/31/20 13:03 Alkaline Phosphatase 107 units/L (35-129) 05/31/20 13:03 Lactate Dehydrogenase 365 units/L (91-180) H 05/28/20 15:33 Total Creatine Kinase 301 units/L (30-135) H 05/28/20 13:47 CK-MB (CK-2) 4.3 ng/mL (0.0-4.0) H 05/28/20 13:47 CK-MB (CK-2) Rel Index 1.4 (0-4) 05/28/20 13:47 C-Reactive Protein 0.20 mg/dL (0.00-1.30) 05/28/20 15:33 Total Protein 5.4 g/dL (6.3-8.2) L 05/31/20 13:03 Albumin 2.4 g/dL (3.9-5) L 05/31/20 13:03 Albumin/Globulin Ratio 0.8 % 05/31/20 13:03 Procalcitonin < 0.05 ng/mL (<0.15) 05/28/20 15:33 Urine Color Yellow (Yellow) 05/28/20 16:30 Urine Turbidity Slightly-cloudy (Clear) 05/28/20 16:30 Urine pH 6.0 (5.0-7.0) 05/28/20 16:30 Ur Specific [place] 1.018 (1.003-1.030) 05/28/20 16:30 Urine Protein >500 mg/dL (Negative) 05/28/20 16:30 Urine Glucose (UA) >=500 mg/dL (Negative) 05/28/20 16:30 Urine Ketones Neg mg/dL (Negative) 05/28/20 16:30 Urine Blood Neg (Negative) 05/28/20 16:30 Urine Nitrite Neg (Negative) 05/28/20 16:30 Urine Bilirubin Neg (Negative) 05/28/20 16:30 Urine Urobilinogen < 2.0 mg/dL (<2.0) 05/28/20 16:30 Ur Leukocyte Esterase Neg (Negative) 05/28/20 16:30 Urine WBC (Auto) 17.0 /HPF (0.0-6.0) H 05/28/20 16:30 Urine RBC (Auto) 22.0 /HPF (0.0-6.0) 05/28/20 16:30 U Epithel Cells (Auto) 2.0 /HPF (0-13.0) 05/28/20 16:30 Urine Bacteria (Auto) 2+ /HPF (Negative) 05/28/20 16:30 Urine Mucus Few /HPF 05/28/20 16:30 Urine Yeast (Budding) 1+ /HPF 05/28/20 16:30 Coronavirus (PCR) Positive (Negative) A 05/28/20 Unknown Microbiology: Microbiology 05/28/20 15:33 Peripheral/Venous Blood Culture - Preliminary NO GROWTH AFTER 72 HOURS 05/28/20 15:40 Peripheral/Venous Blood Culture - Preliminary NO GROWTH AFTER 72 HOURS - Diagnostic Impressions Diagnostic Impressions: Echocardiogram Limited Views 05/29/20 13:52 Transthoracic Echocardiogram Indication: Pulm Embolus BP: 169/76 HR: 85 Conclusions *Limited study for RV size post cardiopulmonar arrest. *RV is only slightly dilated, no significant difference from prior echo 05/13/2020. *Global left ventricular systolic function is at the lower limits of normal. *The estimated ejection fraction is 45-50%. *Mild to moderate concentric left ventricular hypertrophy is observed. *The left and right atria are both mild to moderately dilated. Findings Left Ventricle: The left ventricular chamber size is mildly dilated. Mild to moderate concentric left ventricular hypertrophy is observed. Global left ventricular systolic function is at the lower limits of normal. The estimated ejection fraction is 45-50%. Left Atrium: The left atrium is mild to moderately dilated. Right Ventricle: The right ventricle is slightly dilated. Right Atrium: The right atrium is mild to moderately dilated. Aortic Valve: The aortic valve leaflets are moderately thickened. Mitral Valve: There is mitral annular calcification. The mitral valve leaflets are moderately thickened. Tricuspid Valve: The tricuspid valve leaflets are mildly thickened. Pericardium: A trivial pericardial effusion is visualized. NDUM: 05/29/20 1808 Amended Report Transthoracic Echocardiogram Indication: Pulm Embolus BP: 169/76 HR: 85 Conclusions *Limited study for RV size post cardiopulmonary arrest. *RV is only slightly dilated, no significant difference from prior echo 05/13/2020. *Global left ventricular systolic function is at the lower limits of normal. *The estimated ejection fraction is 45-50%. *Mild to moderate concentric left ventricular hypertrophy is observed. *The left and right atria are both mild to moderately dilated. Findings Left Ventricle: The left ventricular chamber size is mildly dilated. Mild to moderate concentric left ventricular hypertrophy is observed. Global left ventricular systolic function is at the lower limits of normal. The estimated ejection fraction is 45-50%. Left Atrium: The left atrium is mild to moderately dilated. Right Ventricle: The right ventricle is slightly dilated. Right Atrium: The right atrium is mild to moderately dilated. Aortic Valve: The aortic valve leaflets are moderately thickened. Mitral Valve: There is mitral annular calcification. The mitral valve leaflets are moderately thickened. Tricuspid Valve: The tricuspid valve leaflets are mildly thickened. Pericardium: A trivial pericardial effusion is visualized. Helm/IV: Voiding Method Indwelling Catheter IV Catheter Type [Right Peripheral IV Forearm] IV Catheter Type [Left Leg] Intra-osseous Active Medications - Current Medications Current Medications: Generic Name Dose Route Start Last Admin Trade Name Freq PRN Reason Stop Dose Admin Lipase/Protease/Amylase 1 each 05/29/20 13:[address] 10,500 Unit FEEDTUBE PRN PRN For Clogged Feeding Tube Dexamethasone 6 mg 05/29/20 15:00 05/31/20 10:29 Decadron PO 06/07/20 10:01 6 mg DAILY NELSON Administration Famotidine 20 mg 05/29/20 10:00 05/31/20 10:29 Pepcid IV 20 mg BID NELSON Administration Fentanyl 50 mcg 05/29/20 14:21 Sublimaze IV Q10MIN PRN ANALGESIA Furosemide 10 mg 05/30/20 18:00 05/31/20 18:11 Lasix IV 10 mg 0600,1800 NELSON Administration Hydralazine HCl 10 mg 05/31/20 14:00 05/31/20 18:11 Apresoline IV 06/03/20 13:59 10 mg Q4HR NELSON Administration Hydrophilic Ointment 1 applic 05/28/20 13:49 Vaseline Lip Therapy TP Q2HR PRN Dry Lips Amiodarone HCl 900 mg/ 500 mls @ 33.333 mls/hr 05/28/20 14:00 Dextrose IV DIRECT NELSON Protocol 1 MG/MIN Midazolam HCl 100 mg/ Sodium 100 mls @ 2 mls/hr 05/28/20 14:00 05/31/20 19:30 Chloride IV 2 mg/hr TITR NELSON 2 mls/hr Administration Protocol 2 MG/HR Sodium Chloride 1,000 mls @ 100 mls/hr 05/29/20 10:45 05/30/20 09:16 Nacl 0.9% 1000 Ml IV 100 mls/hr DIRECT NELSON Administration Heparin Sodium/Sodium Chloride 25,000 unit in 500 mls @ 30 mls/hr 05/29/20 15:00 05/31/20 10:15 Heparin/ 0.45% Nacl-25,000 Unit/500 Ml IV 1,100 units/hr TITR NELSON 22 mls/hr Titration Protocol 1,500 UNITS/HR Fentanyl Citrate 2,000 mcg in 100 mls @ 6.095 mls/hr 05/29/20 15:00 05/31/20 10:38 Fentanyl Drip Premix IV 1 mcg/kg/hr TITR NELSON 6.095 mls/hr Administration Protocol 1 MCG/KG/HR REMDESIVIR 100 mg/ Sodium 250 mls @ 500 mls/hr 05/30/20 21:00 05/30/20 21:46 Chloride IV 06/02/20 21:29 500 mls/hr Q24HR@2100 ON LICENSE OF [facility] Administration Insulin Human Lispro 0 unit 05/29/20 18:00 05/31/20 18:11 Humalog SUB-Q 3 unit Q6H ON LICENSE OF [facility] Administration Protocol Levetiracetam 500 mg 05/29/20 22:00 05/31/20 10:29 Keppra PO 500 mg BID ON LICENSE OF [facility] Administration Lisinopril 20 mg 05/31/20 12:00 05/31/20 11:18 Zestril PO 20 mg BID ON LICENSE OF [facility] Administration Midazolam HCl 2 mg 05/28/20 13:49 Versed IV Q10MIN PRN Sedation Multi-Ingred Cream/Lotion/Oil/Oint 1 applic 05/28/20 13:49 Artificial Tears Ophth Oint OU Q4HR PRN Dry Eye(s) Simple Syrup 15 ml 05/29/20 13:39 Simple Syrup FEEDTUBE PRN PRN Hypoglycemia Simple Syrup 30 ml 05/29/20 13:39 Simple Syrup FEEDTUBE PRN PRN Hypoglycemia Sodium Bicarbonate 325 mg 05/29/20 13:39 Sodium Bicarbonate FEEDTUBE PRN PRN For Clogged Feeding Tube Sodium Chloride 10 ml 05/28/20 22:00 05/31/20 10:29 Sodium Chloride Flush Syringe 10 Ml IV 10 ml BID NELSON Administration Sodium Chloride 10 ml 05/28/20 19:08 Sodium Chloride Flush Syringe 10 Ml IV PRN PRN LINE FLUSH Sodium Chloride 50 ml 05/29/20 17:30 05/30/20 21:47 Nacl 0.9% IV 06/02/20 21:31 50 ml 2130 NELSON Administration Nutrition/Malnutrition Assess - Dietary Evaluation Nutrition/Malnutrition Findings: Nutrition Notes Start: 08/21/20 11:45 Freq: Status: Active Protocol: Document 05/29/20 11:45 LP (Rec: 05/29/20 11:54 LP [id number]) Nutrition Notes Need for Assessment generated from: MD Order Initial or Follow up Assessment Current Diagnosis Diabetes,Hypertension,Heart Failure Other Pertinent Diagnosis Cardiac Arrest, Metabolic Encephalopathy Current Diet NPO Labs/Tests BUN 32 Cr 1.4 BG 180 Pertinent Medications Reviewed Height 5 ft 6 in Weight 121.9 kg [place] Body Weight (kg) 59.09 BMI 43.3 Weight Status Morbidly Obese Subjective/Other Information Consult for evaluation of nutrition intake. Pt on vent. TF order to be placed for plans to feed. Burn Absent Trauma Absent GI Symptoms None Current % PO Negligible Minimum of two criteria No physical signs of malnutrition #1 Nutrition Diagnosis Inadequate oral intake Etiology respiratory failure As Evidenced by Signs and Symptoms Pt on vent and unable to consume PO Is patient on ventilator? Yes Is Patient Ambulatory and/or Out of Bed No REE-([facility]-confined to bed) 2159.388 Kcal/Kg value to use for calculation 13 Approximate Energy Requirements Using 1585 kcal/Kg Calculation Used for Recommendations [facility] Additional Notes Protein needs are up to 148g ( up to 2.5g/kg IBW) Fluid needs are 1ml/kcal Nutrition Intervention Change Diet Order: TF Nutrition Support: Nepro at 40ml/hr Flush with 175ml q4h Kcal 1,728 Protein (gm) 78 Fluid (mL) 698 Goal #1 Meet at least 75% of kcal and protein needs Anticipated Discharge Needs: Unable to determine at this becky Follow-Up By: 06/01/20 Additional Comments Follow for TF start/tolerance
--- NOTE | 2020-05-31 21:09 | Progress Note ---
Assessment and Plan - Patient Problems (1) Acute hypoxemic respiratory failure Current Visit: Yes Status: Acute Plan to address problem: Patient intubated, sedated and on ventilatory support. Critical care team consulted, wean vent as tolerated, daily spontaneous breathing trial, sedation holiday, ABG, supportive care. The high probability of a clinically significant, sudden or life threatening deterioration of the [pulmonary, renal, cardiac, neuro] system(s) required my full and direct attention, intervention and personal management. The aggregate critical care time was [90] minutes. This time is in addition to time spent performing reported procedures but includes the following: [x] Data Review and interpretation [x] Patient assessment and monitoring of vital signs [x] Documentation [x] Medication orders and management (2) Cardiac arrest Current Visit: Yes Status: Acute Plan to address problem: Cardiology team consulted, echocardiogram pending, serial cardiac enzymes, EKG, telemetry monitoring. (3) Metabolic acidosis Current Visit: Yes Status: Acute Plan to address problem: BMP, repeat BMP in a.m., supportive care. (4) Coronavirus infection Current Visit: Yes Status: Acute Plan to address problem: Infectious disease service consulted, isolation precautions, contact precautions, remdesivir therapy, IV steroid therapy, supportive care. (5) Metabolic encephalopathy Current Visit: Yes Status: Acute Plan to address problem: CT head, neuro check, BMP, supportive care. (6) CHF (congestive heart failure) Current Visit: Yes Status: Acute Qualifiers: Heart failure type: systolic Heart failure chronicity: acute Qualified Code(s): I50.21 - Acute systolic (congestive) heart failure Plan to address problem: Cardiology consulted, strict I's/O, monitor urine output every shift, afterload reduction, blood pressure control. (7) DVT prophylaxis Current Visit: Yes Status: Acute Plan to address problem: SCD to bilateral lower extremities while in bed, prophylactic anticoagulation. (8) Advance care planning Current Visit: Yes Status: Acute Plan to address problem: Disease education conducted, prognosis discussed, +30 minutes. Patient is full code. History Interval history: 64 YO Female HD #4 with Cardiac Arrest, Acute Hypoxemic Respiratory Failure, Systolic CHF (EF 40%), Coronavirus Infection on Remdesivir therapy and Steroid therapy, Metabolic Acidosis, Metabolic Encephalopathy, KAYLIN, AVANI. Patient remains intubated and on ventilatory support today. Patient has multiple organ system failure and has poor prognosis. Patient did not experience significant medical decompensation overnight. Hospitalist Physical - Constitutional Vitals: Temp Pulse Resp BP Pulse Ox 98.0 F 80 24 120/66 99 05/31/20 20:00 05/31/20 20:11 05/31/20 20:11 05/31/20 20:11 05/31/20 20:11 General appearance: Present: mild distress, obese, other (intubated on the vent) - EENT Eyes: Present: miosis - Neck Neck: Present: supple - Respiratory Respiratory effort: labored Respiratory: bilateral: diminished, rhonchi - Cardiovascular Rhythm: regular Heart Sounds: Present: S1 & S2 - Extremities Extremities: no ischemia Extremity abnormal: edema Peripheral Pulses: within normal limits - Abdominal General gastrointestinal: soft, non-tender, non-distended - Integumentary Integumentary: Present: clear, dry - Psychiatric Psychiatric: no appropriate mood/affect, no intact judgment & insight, no memory intact - Neurologic Neurologic: no gait normal Results - Labs CBC & Chem 7: 05/31/20 02:16 05/31/20 13:03 Labs: Laboratory Last Values WBC 9.1 K/mm3 (4.5-11.0) 05/29/20 04:43 RBC 3.48 M/mm3 (3.65-5.03) L 05/29/20 04:43 Hgb 9.2 gm/dl (10.1-14.3) L 05/31/20 02:16 Hct 27.5 % (30.3-42.9) L 05/31/20 02:16 MCV 85 fl (79-97) 05/29/20 04:43 MCH 28 pg (28-32) 05/29/20 04:43 MCHC 33 % (30-34) 05/29/20 04:43 RDW 16.0 % (13.2-15.2) H 05/29/20 04:43 Plt Count 251 K/mm3 (140-440) 05/31/20 02:16 Lymph % (Auto) 7.4 % (13.4-35.0) L 05/29/20 04:43 [place] % (Auto) 3.3 % (0.0-7.3) 05/29/20 04:43 Eos % (Auto) 0.0 % (0.0-4.3) 05/29/20 04:43 Baso % (Auto) 0.2 % (0.0-1.8) 05/29/20 04:43 Lymph # 0.7 K/mm3 (1.2-5.4) L 05/29/20 04:43 [place] # 0.3 K/mm3 (0.0-0.8) 05/29/20 04:43 Eos # 0.0 K/mm3 (0.0-0.4) 05/29/20 04:43 Baso # 0.0 K/mm3 (0.0-0.1) 05/29/20 04:43 Seg Neutrophils % 89.1 % (40.0-70.0) H 05/29/20 04:43 Seg Neutrophils # 8.1 K/mm3 (1.8-7.7) H 05/29/20 04:43 PT 14.2 Sec. (12.2-14.9) 05/29/20 15:10 INR 1.08 (0.87-1.13) 05/29/20 15:10 APTT 27.2 Sec. (24.2-36.6) 05/29/20 15:10 D-Dimer 8780.43 ng/mlDDU (0-234) H 05/28/20 15:33 Heparin Anti-Xa Level 0.60 U.I./ml (0.3-0.7) 05/31/20 09:05 ABG pH 7.398 pH Units (7.350-7.450) 05/31/20 03:55 ABG pCO2 30.9 mm Hg 05/31/20 03:55 ABG pO2 94.7 mm Hg (80.0-90.0) H 05/31/20 03:55 ABG HCO3 18.6 mmol/L (20.0-26.0) L 05/31/20 03:55 ABG O2 Saturation 97.5 % (95.0-99.0) 05/31/20 03:55 ABG O2 Content 10.8 (0.0-44) 05/31/20 03:55 ABG Base Excess -5.5 mmol/L (-2.0-3.0) L 05/31/20 03:55 ABG Hemoglobin 7.9 gm/dl (12.0-16.0) L 05/31/20 03:55 ABG Carboxyhemoglobin 1.1 % (0.0-5.0) 05/31/20 03:55 ABG Methemoglobin 0.4 % (0.0-1.5) 05/31/20 03:55 VBG pH 7.152 (7.320-7.420) L* 05/28/20 13:47 Oxyhemoglobin 96.0 % (95.0-99.0) 05/31/20 03:55 FiO2 40 % 05/31/20 03:55 Sodium 140 mmol/L (137-145) 05/31/20 13:03 Potassium 4.3 mmol/L (3.6-5.0) 05/31/20 13:03 Chloride 106.0 mmol/L (98-107) 05/31/20 13:03 Carbon Dioxide 18 mmol/L (22-30) L 05/31/20 13:03 Anion Gap 20 mmol/L 05/31/20 13:03 BUN 48 mg/dL (7-17) H 05/31/20 13:03 Creatinine 1.6 mg/dL (0.6-1.2) H 05/31/20 13:03 Estimated GFR 33 ml/min 05/31/20 13:03 BUN/Creatinine Ratio 30 % 05/31/20 13:03 Glucose 115 mg/dL (65-100) H 05/31/20 13:03 POC Glucose 159 (70-105) H 05/31/20 18:13 Lactic Acid 1.90 mmol/L (0.7-2.0) 05/28/20 14:46 Calcium 8.3 mg/dL (8.4-10.2) L 05/31/20 13:03 Ferritin 179.4 ng/mL (10.0-200.0) 05/28/20 15:33 Total Bilirubin < 0.20 mg/dL (0.1-1.2) 05/31/20 13:03 AST 15 units/L (5-40) 05/31/20 13:03 ALT 18 units/L (7-56) 05/31/20 13:03 Alkaline Phosphatase 107 units/L (35-129) 05/31/20 13:03 Lactate Dehydrogenase 365 units/L (91-180) H 05/28/20 15:33 Total Creatine Kinase 301 units/L (30-135) H 05/28/20 13:47 CK-MB (CK-2) 4.3 ng/mL (0.0-4.0) H 05/28/20 13:47 CK-MB (CK-2) Rel Index 1.4 (0-4) 05/28/20 13:47 C-Reactive Protein 0.20 mg/dL (0.00-1.30) 05/28/20 15:33 Total Protein 5.4 g/dL (6.3-8.2) L 05/31/20 13:03 Albumin 2.4 g/dL (3.9-5) L 05/31/20 13:03 Albumin/Globulin Ratio 0.8 % 05/31/20 13:03 Procalcitonin < 0.05 ng/mL (<0.15) 05/28/20 15:33 Urine Color Yellow (Yellow) 05/28/20 16:30 Urine Turbidity Slightly-cloudy (Clear) 05/28/20 16:30 Urine pH 6.0 (5.0-7.0) 05/28/20 16:30 Ur Specific [place] 1.018 (1.003-1.030) 05/28/20 16:30 Urine Protein >500 mg/dL (Negative) 05/28/20 16:30 Urine Glucose (UA) >=500 mg/dL (Negative) 05/28/20 16:30 Urine Ketones Neg mg/dL (Negative) 05/28/20 16:30 Urine Blood Neg (Negative) 05/28/20 16:30 Urine Nitrite Neg (Negative) 05/28/20 16:30 Urine Bilirubin Neg (Negative) 05/28/20 16:30 Urine Urobilinogen < 2.0 mg/dL (<2.0) 05/28/20 16:30 Ur Leukocyte Esterase Neg (Negative) 05/28/20 16:30 Urine WBC (Auto) 17.0 /HPF (0.0-6.0) H 05/28/20 16:30 Urine RBC (Auto) 22.0 /HPF (0.0-6.0) 05/28/20 16:30 U Epithel Cells (Auto) 2.0 /HPF (0-13.0) 05/28/20 16:30 Urine Bacteria (Auto) 2+ /HPF (Negative) 05/28/20 16:30 Urine Mucus Few /HPF 05/28/20 16:30 Urine Yeast (Budding) 1+ /HPF 05/28/20 16:30 Coronavirus (PCR) Positive (Negative) A 05/28/20 Unknown Microbiology: Microbiology 05/28/20 15:33 Peripheral/Venous Blood Culture - Preliminary NO GROWTH AFTER 72 HOURS 05/28/20 15:40 Peripheral/Venous Blood Culture - Preliminary NO GROWTH AFTER 72 HOURS - Diagnostic Impressions Diagnostic Impressions: Echocardiogram Limited Views 05/29/20 13:52 Transthoracic Echocardiogram Indication: Pulm Embolus BP: 169/76 HR: 85 Conclusions *Limited study for RV size post cardiopulmonar arrest. *RV is only slightly dilated, no significant difference from prior echo 05/13/2020. *Global left ventricular systolic function is at the lower limits of normal. *The estimated ejection fraction is 45-50%. *Mild to moderate concentric left ventricular hypertrophy is observed. *The left and right atria are both mild to moderately dilated. Findings Left Ventricle: The left ventricular chamber size is mildly dilated. Mild to moderate concentric left ventricular hypertrophy is observed. Global left ventricular systolic function is at the lower limits of normal. The estimated ejection fraction is 45-50%. Left Atrium: The left atrium is mild to moderately dilated. Right Ventricle: The right ventricle is slightly dilated. Right Atrium: The right atrium is mild to moderately dilated. Aortic Valve: The aortic valve leaflets are moderately thickened. Mitral Valve: There is mitral annular calcification. The mitral valve leaflets are moderately thickened. Tricuspid Valve: The tricuspid valve leaflets are mildly thickened. Pericardium: A trivial pericardial effusion is visualized. NDUM: 05/29/20 1808 Amended Report Transthoracic Echocardiogram Indication: Pulm Embolus BP: 169/76 HR: 85 Conclusions *Limited study for RV size post cardiopulmonary arrest. *RV is only slightly dilated, no significant difference from prior echo 05/13/2020. *Global left ventricular systolic function is at the lower limits of normal. *The estimated ejection fraction is 45-50%. *Mild to moderate concentric left ventricular hypertrophy is observed. *The left and right atria are both mild to moderately dilated. Findings Left Ventricle: The left ventricular chamber size is mildly dilated. Mild to moderate concentric left ventricular hypertrophy is observed. Global left ventricular systolic function is at the lower limits of normal. The estimated ejection fraction is 45-50%. Left Atrium: The left atrium is mild to moderately dilated. Right Ventricle: The right ventricle is slightly dilated. Right Atrium: The right atrium is mild to moderately dilated. Aortic Valve: The aortic valve leaflets are moderately thickened. Mitral Valve: There is mitral annular calcification. The mitral valve leaflets are moderately thickened. Tricuspid Valve: The tricuspid valve leaflets are mildly thickened. Pericardium: A trivial pericardial effusion is visualized. Helm/IV: Voiding Method Indwelling Catheter IV Catheter Type [Right Peripheral IV Forearm] IV Catheter Type [Left Leg] Intra-osseous Active Medications - Current Medications Current Medications: Generic Name Dose Route Start Last Admin Trade Name Freq PRN Reason Stop Dose Admin Lipase/Protease/Amylase 1 each 05/29/20 13:[address] 10,500 Unit FEEDTUBE PRN PRN For Clogged Feeding Tube Dexamethasone 6 mg 05/29/20 15:00 05/31/20 10:29 Decadron PO 06/07/20 10:01 6 mg DAILY NELSON Administration Famotidine 20 mg 05/29/20 10:00 05/31/20 10:29 Pepcid IV 20 mg BID NELSON Administration Fentanyl 50 mcg 05/29/20 14:21 Sublimaze IV Q10MIN PRN ANALGESIA Furosemide 10 mg 05/30/20 18:00 05/31/20 18:11 Lasix IV 10 mg 0600,1800 NELSON Administration Hydralazine HCl 10 mg 05/31/20 14:00 05/31/20 18:11 Apresoline IV 06/03/20 13:59 10 mg Q4HR NELSON Administration Hydrophilic Ointment 1 applic 05/28/20 13:49 Vaseline Lip Therapy TP Q2HR PRN Dry Lips Amiodarone HCl 900 mg/ 500 mls @ 33.333 mls/hr 05/28/20 14:00 Dextrose IV DIRECT NELSON Protocol 1 MG/MIN Midazolam HCl 100 mg/ Sodium 100 mls @ 2 mls/hr 05/28/20 14:00 05/31/20 19:30 Chloride IV 2 mg/hr TITR NELSON 2 mls/hr Administration Protocol 2 MG/HR Sodium Chloride 1,000 mls @ 100 mls/hr 05/29/20 10:45 05/30/20 09:16 Nacl 0.9% 1000 Ml IV 100 mls/hr DIRECT NELSON Administration Heparin Sodium/Sodium Chloride 25,000 unit in 500 mls @ 30 mls/hr 05/29/20 15:00 05/31/20 10:15 Heparin/ 0.45% Nacl-25,000 Unit/500 Ml IV 1,100 units/hr TITR NELSON 22 mls/hr Titration Protocol 1,500 UNITS/HR Fentanyl Citrate 2,000 mcg in 100 mls @ 6.095 mls/hr 05/29/20 15:00 05/31/20 10:38 Fentanyl Drip Premix IV 1 mcg/kg/hr TITR NELSON 6.095 mls/hr Administration Protocol 1 MCG/KG/HR REMDESIVIR 100 mg/ Sodium 250 mls @ 500 mls/hr 05/30/20 21:00 05/30/20 21:46 Chloride IV 06/02/20 21:29 500 mls/hr Q24HR@2100 NELSON Administration Insulin Human Lispro 0 unit 05/29/20 18:00 05/31/20 18:11 Humalog SUB-Q 3 unit Q6H NELSON Administration Protocol Levetiracetam 500 mg 05/29/20 22:00 05/31/20 10:29 Keppra PO 500 mg BID NELSON Administration Lisinopril 20 mg 05/31/20 12:00 05/31/20 11:18 Zestril PO 20 mg BID NELSON Administration Midazolam HCl 2 mg 05/28/20 13:49 Versed IV Q10MIN PRN Sedation Multi-Ingred Cream/Lotion/Oil/Oint 1 applic 05/28/20 13:49 Artificial Tears Ophth Oint OU Q4HR PRN Dry Eye(s) Simple Syrup 15 ml 05/29/20 13:39 Simple Syrup FEEDTUBE PRN PRN Hypoglycemia Simple Syrup 30 ml 05/29/20 13:39 Simple Syrup FEEDTUBE PRN PRN Hypoglycemia Sodium Bicarbonate 325 mg 05/29/20 13:39 Sodium Bicarbonate FEEDTUBE PRN PRN For Clogged Feeding Tube Sodium Chloride 10 ml 05/28/20 22:00 05/31/20 10:29 Sodium Chloride Flush Syringe 10 Ml IV 10 ml BID NELSON Administration Sodium Chloride 10 ml 05/28/20 19:08 Sodium Chloride Flush Syringe 10 Ml IV PRN PRN LINE FLUSH Sodium Chloride 50 ml 05/29/20 17:30 05/30/20 21:47 Nacl 0.9% IV 06/02/20 21:31 50 ml 2130 NELSON Administration Nutrition/Malnutrition Assess - Dietary Evaluation Nutrition/Malnutrition Findings: Nutrition Notes Start: 05/29/20 11:45 Freq: Status: Active Protocol: Document 05/29/20 11:45 LP (Rec: 05/29/20 11:54 LP [email or web address]) Nutrition Notes Need for Assessment generated from: MD Order Initial or Follow up Assessment Current Diagnosis Diabetes,Hypertension,Heart Failure Other Pertinent Diagnosis Cardiac Arrest, Metabolic Encephalopathy Current Diet NPO Labs/Tests BUN 32 Cr 1.4 BG 180 Pertinent Medications Reviewed Height 5 ft 6 in Weight 121.9 kg Faith Body Weight (kg) 59.09 BMI 43.3 Weight Status Morbidly Obese Subjective/Other Information Consult for evaluation of nutrition intake. Pt on vent. TF order to be placed for plans to feed. Burn Absent Trauma Absent GI Symptoms None Current % PO Negligible Minimum of two criteria No physical signs of malnutrition #1 Nutrition Diagnosis Inadequate oral intake Etiology respiratory failure As Evidenced by Signs and Symptoms Pt on vent and unable to consume PO Is patient on ventilator? Yes Is Patient Ambulatory and/or Out of Bed No REE-([facility]-confined to bed) 2159.388 Kcal/Kg value to use for calculation 13 Approximate Energy Requirements Using 1585 kcal/Kg Calculation Used for Recommendations [facility] Additional Notes Protein needs are up to 148g ( up to 2.5g/kg IBW) Fluid needs are 1ml/kcal Nutrition Intervention Change Diet Order: TF Nutrition Support: Nepro at 40ml/hr Flush with 175ml q4h Kcal 1,728 Protein (gm) 78 Fluid (mL) 698 Goal #1 Meet at least 75% of kcal and protein needs Anticipated Discharge Needs: Unable to determine at this becky Follow-Up By: 06/01/20 Additional Comments Follow for TF start/tolerance
[2020-05-31] MEDS: REMDESIVIR 100 MG in SODIUM CHLORIDE 0.9% 250ML 250 ML IV SCH (21:52)
[2020-05-31] MEDS: SODIUM CHLORIDE 0.9% 50 ML IVPB IV SCH (21:52)
[2020-06-01] MEDS: INSULIN LISPRO 100 UNIT/ML VIAL 3 mL SUB-Q SCH ×4 (00:20→17:59)
[2020-06-01] MEDS: fentaNYL DRIP Premix 2,000 MCG/100 ML BAG IV SCH ×3 (01:30→23:00)
[2020-06-01] MEDS: hydrALAZINE 20 MG/1 ML INJ IV SCH ×3 (01:31→13:29)
[2020-06-01 04:58] LABS: ABG Base Excess -5.9 mmol/L (-2.0-3.0); ABG HCO3 18.8 mmol/L (20.0-26.0); ABG Methemoglobin 0.5 % (0.0-1.5); ABG Oxygen Saturation 97.9 % (95.0-99.0); ABG PCO2 33.2 mm Hg; ABG PH 7.371 pH Units (7.350-7.450); ABG PO2 109.8 mm Hg (80.0-90.0)
--- NOTE | 2020-06-01 05:36 | XRay Report ---
CHEST 1 VIEW, 06/01/2020 3:15 AM CLINICAL INFORMATION/INDICATION: Respiratory failure COMPARISON: Chest radiograph, 05/31/2020 at 9:11 AM FINDINGS: SUPPORT DEVICES: The endotracheal tube and esophagogastric tube project in similar position. HEART: There is stable enlargement of the cardiac silhouette. LUNGS/PLEURA: Mixed interstitial and airspace disease has not significantly changed when allowing for differences in patient positioning. No pneumothorax is identified. ADDITIONAL FINDINGS: No additional acute findings. IMPRESSION: 1. Overall stable appearance of mixed interstitial and airspace disease. This may be secondary to pul monary edema. 2. Stable enlargement of the cardiac silhouette. Signer Name: Jasmina Woo MD Signed: 06/01/2020 5:32 AM Workstation Name: [id number]
[2020-06-01] MEDS: FUROSEMIDE 20 MG/2 ML INJ IV SCH ×2 (05:40→17:59)
[2020-06-01] MEDS: HEPARIN/ 0.45% NACL DRIP 25,000 UNIT/500 ML BAG IV SCH (06:48)
--- NOTE | 2020-06-01 10:52 | Progress Note ---
Assessment and Plan Acute hypoxemic respiratory failure orally intubated on MVS Severe COVID infection Multifocal pneumonia Morbid obesity Acute toxic metabolic encephalopathy AVANI secondary to COVID/vasomotor nephropathy Bilateral pulmonary edema. Bilateral pleural effusions. History of congestive heart failure. Morbid obesity. History of pulmonary hypertension. History of hypertension. Diabetes. Obesity hypoventilation syndrome. Elevated serum inflammatory markers to include D-dimers and LDH levels. Hyperkalemia at presentation. Metabolic acidosis. Oropharyngeal dysphagia. - VAP bundle addressed -Aspiration precautions, HOB >40 - continue lung protective strategies-ARDS. net -Permissive hypercapnic is acceptable -CXR, ABG in am - continue bronchodilators with pulmonary hygiene per RT - wean per pulmonary driven protocols otherwise - continue to avoid benzodiazepines, reduce the possibility of delirium Currently on Fentanyl and Midazolam, wean off Midazolam - prn analgesia per CPOT score - sedation prn for target RASS 0 to -1 - Continue to wean supplemental oxygen for target O2 sats > 92% - conservative fluid management measures as tolerated by hemodynamics and renal function - Bronchodilators with pulmonary hygiene per RT -Antibiotics for MSSA pneumonia, complete course. ID following - Accuchecks with glycemic control per SSI (While critically ill target blood glucose of 140-180 mg/dL; avoid hypoglycemia) - Maintenance of sleep-wake cycle, avoid delirium - Avoid nephrotoxins, closely monitor renal function, dose all medications for renal function - Aspiration precautions, HOB >40 - Stress ulcer prophylaxis -Famotidine - VTE prophylaxis on weight based enoxaparin based on D-dimer levels - Mobility protocol, off loading and skin assessment for pressure ulcer prevention - Monitor hemodynamics closely -Re-evalaute need for Helm catheter, plan to discontinue in the morning - Supportive transfusions as indicated to keep HgB >7g/dL COVID SPECIFIC INTERVENTIONS -Airborne, contact isolation for COVID per facility protocols -s/p Remdesivir, monitor closely for toxicities -IV steroids-Dexamethasone -Trend d-dimer,and other inflammatory markers per facility protocol -Evaluate for Convalescent plasma therapy -Continue all supportive care Discussed with the ICU team-RTAIMEE, Discussed with her niece, Tonya Haywood ( [phone]) at the request of her I explained the patient's current clinical condition. I answered all her questions Life threatening condition- COVID 19 ARDS acute hypoxemic respiratory failure on MVS Mortality/Morbidity- High Complexity of medical decision making- High CONDITION: CRITICAL PROGNOSIS: GUARDED CODE STATUS: FULL CODE The high probability of a clinically significant, sudden or life-threatening deterioration of the [respiratory & neurology, renal ] system(s) required my full and direct attention, intervention and personal management. The aggregate critical care time was [35] minutes without overlap. Time includes spent on; [x] Data Review and interpretation [x] Patient assessment and monitoring of vital signs [x] Documentation [x] Medication orders and management Subjective Date of service: 06/01/20 Principal diagnosis: Ac hypoxemic resp failure; COVID-19; pneumonia; CHF; Pulm HTN; OHS; DM II Interval history: Patient is seen today for: Ac hypoxemic resp failure; Coronavirus-19 infection; pneumonia; Pulmonary edema; Bilateral pleural effusions; CHF; Morbid obesity; pulmonary hypertension; OHS; DM II Seen and examined at bedside; 24hour events reviewed; nursing and respiratory care staff consulted; no adverse overnight events reported to me; resting peacefully in bed; remains on MVS; no emesis or overt aspiration; no high grade fevers, tolerating tube feedings at goal Objective Vital Signs - 12hr 05/31/20 05/31/20 05/31/20 23:02 23:11 23:21 Temperature Pulse Rate 88 86 80 Pulse Rate [ From Monitor] Respiratory 24 16 16 Rate Blood Pressure 150/66 O2 Sat by Pulse 98 98 98 Oximetry 05/31/20 05/31/20 05/31/20 23:31 23:32 23:41 Temperature Pulse Rate 79 78 83 Pulse Rate [ From Monitor] Respiratory 23 21 Rate Blood Pressure 119/43 119/43 119/43 O2 Sat by Pulse 97 100 99 Oximetry 05/31/20 06/01/20 06/01/20 23:51 00:00 00:01 Temperature 98.9 F Pulse Rate 81 74 78 Pulse Rate [ 78 From Monitor] Respiratory 20 24 24 Rate Blood Pressure 158/86 124/44 O2 Sat by Pulse 100 100 100 Oximetry 06/01/20 06/01/20 06/01/20 00:03 00:11 00:21 Temperature Pulse Rate 78 78 78 Pulse Rate [ From Monitor] Respiratory 24 24 24 Rate Blood Pressure 124/44 124/44 123/54 O2 Sat by Pulse 100 100 100 Oximetry 06/01/20 06/01/20 06/01/20 00:30 00:41 00:51 Temperature Pulse Rate 75 81 80 Pulse Rate [ From Monitor] Respiratory 21 Rate Blood Pressure 146/69 146/69 146/69 O2 Sat by Pulse 100 100 100 Oximetry 06/01/20 06/01/20 06/01/20 01:00 01:11 01:21 Temperature Pulse Rate 76 74 72 Pulse Rate [ From Monitor] Respiratory 24 24 25 H Rate Blood Pressure 144/66 144/66 144/66 O2 Sat by Pulse 100 100 100 Oximetry 06/01/20 06/01/20 06/01/20 01:31 01:41 01:51 Temperature Pulse Rate 72 72 74 Pulse Rate [ From Monitor] Respiratory 24 Rate Blood Pressure 135/61 135/61 125/57 O2 Sat by Pulse 100 100 100 Oximetry 06/01/20 06/01/20 06/01/20 02:01 02:11 02:21 Temperature Pulse Rate 75 74 75 Pulse Rate [ From Monitor] Respiratory 24 Rate Blood Pressure 129/59 129/59 131/60 O2 Sat by Pulse 99 100 100 Oximetry 06/01/20 06/01/20 06/01/20 02:30 02:41 02:51 Temperature Pulse Rate 77 75 74 Pulse Rate [ From Monitor] Respiratory 24 Rate Blood Pressure 138/66 138/66 138/59 O2 Sat by Pulse 99 100 100 Oximetry 06/01/20 06/01/20 06/01/20 03:00 03:11 03:20 Temperature Pulse Rate 71 69 68 Pulse Rate [ From Monitor] Respiratory 24 Rate Blood Pressure 138/59 142/68 135/61 O2 Sat by Pulse 100 100 100 Oximetry 06/01/20 06/01/20 06/01/20 03:30 03:41 03:50 Temperature Pulse Rate 68 68 69 Pulse Rate [ From Monitor] Respiratory 24 25 H Rate Blood Pressure 138/66 138/66 132/58 O2 Sat by Pulse 100 100 100 Oximetry 06/01/20 06/01/20 06/01/20 03:51 04:00 04:01 Temperature 98.9 F Pulse Rate 69 73 83 Pulse Rate [ 72 From Monitor] Respiratory 24 Rate Blood Pressure 132/58 125/54 O2 Sat by Pulse 100 100 Oximetry 06/01/20 06/01/20 06/01/20 04:11 04:21 04:31 Temperature Pulse Rate 78 77 75 Pulse Rate [ From Monitor] Respiratory Rate Blood Pressure 182/80 142/57 137/58 O2 Sat by Pulse 99 99 97 Oximetry 06/01/20 06/01/20 06/01/20 04:41 04:51 05:00 Temperature Pulse Rate 72 72 70 Pulse Rate [ From Monitor] Respiratory Rate Blood Pressure 137/58 135/61 132/58 O2 Sat by Pulse 99 99 97 Oximetry 06/01/20 06/01/20 06/01/20 05:11 05:21 05:31 Temperature Pulse Rate 71 72 70 Pulse Rate [ From Monitor] Respiratory Rate Blood Pressure 132/58 140/64 132/62 O2 Sat by Pulse 99 99 96 Oximetry 06/01/20 06/01/20 06/01/20 05:41 05:51 06:01 Temperature Pulse Rate 83 81 80 Pulse Rate [ From Monitor] Respiratory Rate Blood Pressure 132/62 152/62 136/53 O2 Sat by Pulse 98 99 97 Oximetry 06/01/20 06/01/20 06/01/20 06:11 06:21 06:31 Temperature Pulse Rate 81 79 76 Pulse Rate [ From Monitor] Respiratory Rate Blood Pressure 136/53 132/56 116/46 O2 Sat by Pulse 99 99 97 Oximetry 06/01/20 06/01/20 06/01/20 06:41 06:51 07:00 Temperature Pulse Rate 76 74 76 Pulse Rate [ From Monitor] Respiratory Rate Blood Pressure 116/46 110/45 126/58 O2 Sat by Pulse 99 99 96 Oximetry 06/01/20 06/01/20 06/01/20 07:11 07:17 07:21 Temperature Pulse Rate 77 81 80 Pulse Rate [ From Monitor] Respiratory Rate Blood Pressure 126/58 120/63 120/63 O2 Sat by Pulse 99 99 99 Oximetry 06/01/20 06/01/20 06/01/20 07:30 07:41 07:51 Temperature Pulse Rate 79 75 73 Pulse Rate [ From Monitor] Respiratory 24 Rate Blood Pressure 130/52 130/52 125/53 O2 Sat by Pulse 97 99 99 Oximetry 06/01/20 06/01/20 06/01/20 08:00 08:11 08:21 Temperature 97.9 F Pulse Rate 77 73 73 Pulse Rate [ 77 From Monitor] Respiratory 24 24 24 Rate Blood Pressure 115/46 130/52 127/55 O2 Sat by Pulse 99 99 99 Oximetry 06/01/20 06/01/20 06/01/20 08:30 08:41 08:51 Temperature Pulse Rate 72 71 71 Pulse Rate [ From Monitor] Respiratory 24 24 24 Rate Blood Pressure 125/51 115/46 122/47 O2 Sat by Pulse 97 100 100 Oximetry 06/01/20 06/01/20 06/01/20 09:00 09:11 09:21 Temperature Pulse Rate 71 71 80 Pulse Rate [ From Monitor] Respiratory 24 24 24 Rate Blood Pressure 129/55 125/51 157/68 O2 Sat by Pulse 97 100 99 Oximetry 06/01/20 06/01/20 06/01/20 09:31 09:41 09:51 Temperature Pulse Rate 78 86 81 Pulse Rate [ From Monitor] Respiratory 22 24 Rate Blood Pressure 143/57 129/55 175/75 O2 Sat by Pulse 97 99 99 Oximetry 06/01/20 06/01/20 10:01 10:11 Temperature Pulse Rate 80 77 Pulse Rate [ From Monitor] Respiratory 25 H 24 Rate Blood Pressure 153/58 175/75 O2 Sat by Pulse 96 99 Oximetry Constitutional: no acute distress, other (elderly looking obese female riding set rate on MVS at rest) Eyes: non-icteric ENT: oropharynx moist, other (ETT 7.0 at 20 cm AYAN) CBC and BMP: 06/02/20 04:20 05/31/20 13:03 ABG, PT/INR, D-dimer: ABG ABG pH 7.371 pH Units (7.350-7.450) 06/01/20 04:00 ABG pCO2 33.2 mm Hg 06/01/20 04:00 ABG pO2 109.8 mm Hg (80.0-90.0) H 06/01/20 04:00 ABG O2 Saturation 97.9 % (95.0-99.0) 06/01/20 04:00 PT/INR, D-dimer PT 14.2 Sec. (12.2-14.9) 05/29/20 15:10 INR 1.08 (0.87-1.13) 05/29/20 15:10 D-Dimer 8780.43 ng/mlDDU (0-234) H 05/28/20 15:33 Abnormal lab findings: Abnormal Labs 05/28/20 05/28/20 05/28/20 13:29 13:47 13:47 RBC Hgb Hct RDW 15.3 H Lymph % (Auto) Lymph # Seg Neutrophils % Seg Neutrophils # D-Dimer Heparin Anti-Xa Level ABG pH ABG pO2 ABG HCO3 ABG O2 Saturation ABG Base Excess ABG Hemoglobin VBG pH Potassium 6.6 H* Chloride 109.2 H Carbon Dioxide 17 L BUN 29 H Creatinine 1.3 H Glucose 265 H POC Glucose 248 H Lactic Acid Calcium 8.1 L AST 63 H Lactate Dehydrogenase Total Creatine Kinase 301 H CK-MB (CK-2) 4.3 H Total Protein 5.4 L Albumin 2.6 L Urine WBC (Auto) Coronavirus (PCR) 05/28/20 05/28/20 05/28/20 13:47 13:47 14:46 RBC Hgb Hct RDW Lymph % (Auto) Lymph # Seg Neutrophils % Seg Neutrophils # D-Dimer Heparin Anti-Xa Level ABG pH ABG pO2 ABG HCO3 ABG O2 Saturation ABG Base Excess ABG Hemoglobin VBG pH 7.152 L* Potassium 7.2 H* Chloride Carbon Dioxide BUN Creatinine Glucose POC Glucose Lactic Acid 3.40 H* Calcium AST Lactate Dehydrogenase Total Creatine Kinase CK-MB (CK-2) Total Protein Albumin Urine WBC (Auto) Coronavirus (PCR) 05/28/20 05/28/20 05/28/20 15:33 15:33 15:51 RBC Hgb Hct RDW Lymph % (Auto) Lymph # Seg Neutrophils % Seg Neutrophils # D-Dimer 8780.43 H Heparin Anti-Xa Level ABG pH 7.284 L ABG pO2 273.0 H ABG HCO3 ABG O2 Saturation 99.4 H ABG Base Excess -6.1 L ABG Hemoglobin 17.2 H VBG pH Potassium Chloride Carbon Dioxide BUN Creatinine Glucose 152 H POC Glucose Lactic Acid Calcium AST Lactate Dehydrogenase 365 H Total Creatine Kinase CK-MB (CK-2) Total Protein Albumin Urine WBC (Auto) Coronavirus (PCR) 05/28/20 05/28/20 05/28/20 16:30 23:20 Unknown RBC Hgb Hct RDW Lymph % (Auto) Lymph # Seg Neutrophils % Seg Neutrophils # D-Dimer Heparin Anti-Xa Level ABG pH ABG pO2 ABG HCO3 ABG O2 Saturation ABG Base Excess ABG Hemoglobin VBG pH Potassium Chloride Carbon Dioxide BUN Creatinine Glucose POC Glucose 224 H Lactic Acid Calcium AST Lactate Dehydrogenase Total Creatine Kinase CK-MB (CK-2) Total Protein Albumin Urine WBC (Auto) 17.0 H Coronavirus (PCR) Positive A 05/29/20 05/29/20 05/29/20 04:35 04:43 04:43 RBC 3.48 L Hgb 9.8 L Hct 29.4 L RDW 16.0 H Lymph % (Auto) 7.4 L Lymph # 0.7 L Seg Neutrophils % 89.1 H Seg Neutrophils # 8.1 H D-Dimer Heparin Anti-Xa Level ABG pH ABG pO2 ABG HCO3 19.3 L ABG O2 Saturation ABG Base Excess -4.5 L ABG Hemoglobin 9.7 L VBG pH Potassium Chloride 110.2 H Carbon Dioxide 18 L BUN 32 H Creatinine 1.4 H Glucose 180 H POC Glucose Lactic Acid Calcium AST Lactate Dehydrogenase Total Creatine Kinase CK-MB (CK-2) Total Protein Albumin Urine WBC (Auto) Coronavirus (PCR) 05/29/20 05/29/20 05/30/20 15:10 17:17 00:08 RBC Hgb 9.3 L Hct 28.7 L RDW Lymph % (Auto) Lymph # Seg Neutrophils % Seg Neutrophils # D-Dimer Heparin Anti-Xa Level 0.71 H ABG pH ABG pO2 ABG HCO3 ABG O2 Saturation ABG Base Excess ABG Hemoglobin VBG pH Potassium Chloride Carbon Dioxide BUN Creatinine Glucose POC Glucose 147 H Lactic Acid Calcium AST Lactate Dehydrogenase Total Creatine Kinase CK-MB (CK-2) Total Protein Albumin Urine WBC (Auto) Coronavirus (PCR) 05/30/20 05/30/20 05/30/20 00:12 04:15 06:07 RBC Hgb Hct RDW Lymph % (Auto) Lymph # Seg Neutrophils % Seg Neutrophils # D-Dimer Heparin Anti-Xa Level ABG pH 7.460 H ABG pO2 106.0 H ABG HCO3 18.9 L ABG O2 Saturation ABG Base Excess -4.4 L ABG Hemoglobin 6.8 L VBG pH Potassium Chloride Carbon Dioxide BUN Creatinine Glucose POC Glucose 195 H 182 H Lactic Acid Calcium AST Lactate Dehydrogenase Total Creatine Kinase CK-MB (CK-2) Total Protein Albumin Urine WBC (Auto) Coronavirus (PCR) 05/30/20 05/30/20 05/30/20 08:37 12:33 15:58 RBC Hgb Hct RDW Lymph % (Auto) Lymph # Seg Neutrophils % Seg Neutrophils # D-Dimer Heparin Anti-Xa Level 0.85 H 1.03 H ABG pH ABG pO2 ABG HCO3 ABG O2 Saturation ABG Base Excess ABG Hemoglobin VBG pH Potassium Chloride Carbon Dioxide BUN Creatinine Glucose POC Glucose 187 H Lactic Acid Calcium AST Lactate Dehydrogenase Total Creatine Kinase CK-MB (CK-2) Total Protein Albumin Urine WBC (Auto) Coronavirus (PCR) 05/30/20 05/30/20 05/31/20 17:57 23:36 02:16 RBC Hgb 9.2 L Hct 27.5 L RDW Lymph % (Auto) Lymph # Seg Neutrophils % Seg Neutrophils # D-Dimer Heparin Anti-Xa Level ABG pH ABG pO2 ABG HCO3 ABG O2 Saturation ABG Base Excess ABG Hemoglobin VBG pH Potassium Chloride Carbon Dioxide BUN Creatinine Glucose POC Glucose 208 H 185 H Lactic Acid Calcium AST Lactate Dehydrogenase Total Creatine Kinase CK-MB (CK-2) Total Protein Albumin Urine WBC (Auto) Coronavirus (PCR) 05/31/20 05/31/20 05/31/20 03:55 06:16 12:20 RBC Hgb Hct RDW Lymph % (Auto) Lymph # Seg Neutrophils % Seg Neutrophils # D-Dimer Heparin Anti-Xa Level ABG pH ABG pO2 94.7 H ABG HCO3 18.6 L ABG O2 Saturation ABG Base Excess -5.5 L ABG Hemoglobin 7.9 L VBG pH Potassium Chloride Carbon Dioxide BUN Creatinine Glucose POC Glucose 160 H 128 H Lactic Acid Calcium AST Lactate Dehydrogenase Total Creatine Kinase CK-MB (CK-2) Total Protein Albumin Urine WBC (Auto) Coronavirus (PCR) 05/31/20 05/31/20 05/31/20 13:03 18:13 23:51 RBC Hgb Hct RDW Lymph % (Auto) Lymph # Seg Neutrophils % Seg Neutrophils # D-Dimer Heparin Anti-Xa Level ABG pH ABG pO2 ABG HCO3 ABG O2 Saturation ABG Base Excess ABG Hemoglobin VBG pH Potassium Chloride Carbon Dioxide 18 L BUN 48 H Creatinine 1.6 H Glucose 115 H POC Glucose 159 H 171 H Lactic Acid Calcium 8.3 L AST Lactate Dehydrogenase Total Creatine Kinase CK-MB (CK-2) Total Protein 5.4 L Albumin 2.4 L Urine WBC (Auto) Coronavirus (PCR) 06/01/20 06/01/20 04:00 05:48 RBC Hgb Hct RDW Lymph % (Auto) Lymph # Seg Neutrophils % Seg Neutrophils # D-Dimer Heparin Anti-Xa Level ABG pH ABG pO2 109.8 H ABG HCO3 18.8 L ABG O2 Saturation ABG Base Excess -5.9 L ABG Hemoglobin 7.8 L VBG pH Potassium Chloride Carbon Dioxide BUN Creatinine Glucose POC Glucose 133 H Lactic Acid Calcium AST Lactate Dehydrogenase Total Creatine Kinase CK-MB (CK-2) Total Protein Albumin Urine WBC (Auto) Coronavirus (PCR) Chest x-ray: image reviewed Allied health notes reviewed: RT (Pulmoanry edema with bilateral pleural effusions)
--- NOTE | 2020-06-01 11:53 | Progress Note ---
Assessment and Plan Cultures: Coronavirus PCR: Positive 05/28/2020 blood culture: no growth 05/28/2020 tracheal aspirate: Usual respiratory bobo 05/28/2020 urine culture: No growth A/P: 64-year-old female with hypertension, diastolic CHF, pulmonary hypertension, diabetes, obesity hypoventilation syndrome was admitted to the emergency room after she called EMS due to difficulty breathing. On the way to the hospital, patient developed cardiac arrest and was treated as per ACLS protocol: #Bilateral pneumonia: Secondary to COVID-19. #Acute hypoxic respiratory failure: On mechanical ventilation. #Status post PEA arrest #Mild LFT elevation: likely from COVID-19 #Mild AVANI Recs: IV/PO Dexamethasone 6 mg daily x 10 days, day 4 IV Remdesivir Day 4 of 5 prophylactic anticoagulation based on d-dimer per protocol trend ferritin, LDH, d-dimer, CRP every 2-3 days for risk stratification and to assess disease progression Mallory Wright MD, FACP [facility] ([facility] C: [phone] O: [phone] F: [phone] Subjective Date of service: 06/01/20 Principal diagnosis: Ac hypoxemic resp failure; COVID-19; pneumonia; CHF; Pulm HTN; OHS; DM II Interval history: No fever. Remains intubated, on the vent. Objective - Exam Narrative Exam: Physical Exam (reviewed in chart due to PPE conservation) Constitutional: intubated, sedated, on the vent Head, Ears, Nose: normocephalic, atraumatic Eyes: limited due to PPE conservation strategy Neck: intubated Oral: intubated Cardiovascular: limited due to PPE conservation strategy Respiratory: limited due to PPE conservation strategy GI: limited due to PPE conservation strategy Musculoskeletal: limited due to PPE conservation strategy Skin: limited due to PPE conservation strategy Hem/Lymphatic: limited due to PPE conservation strategy Psych: no agitation Neurological: sedated, intubated, on the vent, exam limited - Constitutional Vitals: Vital Signs Temp Pulse Resp BP Pulse Ox 97.9 F 131 H 24 144/100 93 06/01/20 08:00 06/01/20 11:22 06/01/20 10:11 06/01/20 11:22 06/01/20 11:22 Temperature -Last 24 Hours Temperature 97.9 F Temperature 98.9 F Temperature 98.9 F Temperature 98.0 F Temperature 97.9 F Temperature 97.8 F - Labs CBC & Chem 7: 05/31/20 02:16 05/31/20 13:03 Labs: Abnormal lab results 05/30/20 05/31/20 05/31/20 Range/Units 17:57 12:20 13:03 ABG pO2 (80.0-90.0) mm Hg ABG HCO3 (20.0-26.0) mmol/L ABG Base Excess (-2.0-3.0) mmol/L ABG Hemoglobin (12.0-16.0) gm/dl Carbon Dioxide 18 L (22-30) mmol/L BUN 48 H (7-17) mg/dL Creatinine 1.6 H (0.6-1.2) mg/dL Glucose 115 H (65-100) mg/dL POC Glucose 208 H 128 H (70-105) Calcium 8.3 L (8.4-10.2) mg/dL Total Protein 5.4 L (6.3-8.2) g/dL Albumin 2.4 L (3.9-5) g/dL 05/31/20 05/31/20 06/01/20 Range/Units 18:13 23:51 04:00 ABG pO2 109.8 H (80.0-90.0) mm Hg ABG HCO3 18.8 L (20.0-26.0) mmol/L ABG Base Excess -5.9 L (-2.0-3.0) mmol/L ABG Hemoglobin 7.8 L (12.0-16.0) gm/dl Carbon Dioxide (22-30) mmol/L BUN (7-17) mg/dL Creatinine (0.6-1.2) mg/dL Glucose (65-100) mg/dL POC Glucose 159 H 171 H (70-105) Calcium (8.4-10.2) mg/dL Total Protein (6.3-8.2) g/dL Albumin (3.9-5) g/dL 06/01/20 Range/Units 05:48 ABG pO2 (80.0-90.0) mm Hg ABG HCO3 (20.0-26.0) mmol/L ABG Base Excess (-2.0-3.0) mmol/L ABG Hemoglobin (12.0-16.0) gm/dl Carbon Dioxide (22-30) mmol/L BUN (7-17) mg/dL Creatinine (0.6-1.2) mg/dL Glucose (65-100) mg/dL POC Glucose 133 H (70-105) Calcium (8.4-10.2) mg/dL Total Protein (6.3-8.2) g/dL Albumin (3.9-5) g/dL
[2020-06-01] MEDS: levETIRAcetam 500 MG TAB PO SCH ×2 (12:06→22:34)
[2020-06-01] MEDS: FAMOTIDINE 20 MG TAB PO SCH ×2 (12:06→22:37)
[2020-06-01] MEDS: LISINOPRIL 20 MG TAB PO SCH ×2 (12:06→22:35)
[2020-06-01] MEDS: hydrALAZINE 25 MG TAB PO SCH ×3 (12:06→22:38)
[2020-06-01] MEDS: DEXAMETHASONE 4 MG TAB PO SCH (12:07)
--- NOTE | 2020-06-01 13:13 | Progress Note ---
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 Well-preserved left ventricular systolic function. Conservative cardiac management. 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 Objective Vital Signs Temp Pulse Pulse Resp BP Pulse Ox 06/01/20 12:41 119 H 15 195/81 99 06/01/20 12:31 118 H 10 L 165/99 95 06/01/20 12:21 124 H 12 191/67 98 06/01/20 12:11 124 H 18 195/81 99 06/01/20 12:06 120 H 195/81 06/01/20 12:01 125 H 16 195/81 97 06/01/20 12:00 98.5 F 124 H 124 H 24 99 06/01/20 11:51 123 H 10 L 193/80 99 06/01/20 11:41 133 H 11 L 199/104 99 06/01/20 11:30 121 H 19 131/105 95 06/01/20 11:22 131 H 144/100 93 06/01/20 11:21 131 H 14 144/100 06/01/20 11:10 109 H 25 H 199/104 98 06/01/20 11:01 118 H 14 199/104 95 06/01/20 10:51 103 H 21 175/65 99 06/01/20 10:41 89 24 167/72 99 06/01/20 10:31 81 24 167/72 96 06/01/20 10:21 78 24 166/60 99 06/01/20 10:11 77 24 175/75 99 06/01/20 10:01 80 25 H 153/58 96 06/01/20 09:51 81 24 175/75 99 06/01/20 09:41 86 22 129/55 99 06/01/20 09:31 78 24 143/57 97 06/01/20 09:21 80 24 157/68 99 06/01/20 09:11 71 24 125/51 100 06/01/20 09:00 71 24 129/55 97 08/24/20 08:51 71 24 122/47 100 08/24/20 08:41 71 24 115/46 100 08/24/20 08:30 72 24 125/51 97 08/24/20 08:21 73 24 127/55 99 08/24/20 08:11 73 24 130/52 99 08/24/20 08:00 97.9 F 77 77 24 115/46 99 08/24/20 07:51 73 24 125/53 99 08/24/20 07:41 75 23 130/52 99 0824/20 07:30 79 24 130/52 97 /24/20 07:21 80 24 120/63 99 08/24/20 07:17 81 120/63 99 08/24/20 07:11 77 23 126/58 99 08/20 07:00 76 24 126/58 96 /24/20 06:51 74 24 110/45 99 08/24/20 06:41 76 23 116/46 99 06/01/20 06:31 76 24 116/46 97 24/20 06:21 79 24 132/56 99 0824/20 06:11 81 24 136/53 99 0824/20 06:01 80 24 136/53 97 08/24/20 05:51 81 24 152/62 99 08/24/20 05:41 83 24 132/62 98 08/24/20 05:31 70 22 132/62 96 08/24/20 05:21 72 24 140/64 99 08/24/20 05:11 71 24 132/58 99 08/24/20 05:00 70 24 132/58 97 0824/20 04:51 72 24 135/61 99 08/24/20 04:41 72 24 137/58 99 08/24/20 04:31 75 24 137/58 97 08/24/20 04:21 77 24 142/57 99 08/24/20 04:11 78 24 182/80 99 08/24/20 04:01 83 24 125/54 08/24/20 04:00 98.9 F 73 72 24 100 08/24/20 03:51 69 23 132/58 100 08/24/20 03:50 69 132/58 100 08/24/20 03:41 68 25 H 138/66 100 08/24/20 03:30 68 24 138/66 100 06/01/20 03:20 68 24 135/61 100 06/01/20 03:11 69 24 142/68 100 06/01/20 03:00 71 24 138/59 100 06/01/20 02:51 74 24 138/59 100 06/01/20 02:41 75 24 138/66 100 06/01/20 02:30 77 24 138/66 99 06/01/20 02:21 75 24 131/60 100 06/01/20 02:11 74 24 129/59 100 06/01/20 02:01 75 24 129/59 99 06/01/20 01:51 74 24 125/57 100 06/01/20 01:41 72 24 135/61 100 06/01/20 01:31 72 24 135/61 100 06/01/20 01:21 72 25 H 144/66 100 06/01/20 01:11 74 24 144/66 100 06/01/20 01:00 76 24 144/66 100 06/01/20 00:51 80 21 146/69 100 06/01/20 00:41 81 21 146/69 100 06/01/20 00:30 75 24 146/69 100 06/01/20 00:21 78 24 123/54 100 06/01/20 00:11 78 24 124/44 100 06/01/20 00:03 78 24 124/44 100 06/01/20 00:01 78 24 124/44 100 06/01/20 00:00 98.9 F 74 78 24 100 05/31/20 23:51 81 20 158/86 100 05/31/20 23:41 83 21 119/43 99 05/31/20 23:32 78 119/43 100 05/31/20 23:31 79 23 119/43 97 20 23:21 80 16 150/66 98 05/31/20 23:11 86 16 98 05/31/20 23:02 88 24 98 05/31/20 22:50 98 H 19 117/94 98 05/31/20 22:41 85 19 145/64 99 05/31/20 22:31 79 16 133/61 99 05/31/20 22:21 81 21 145/64 99 05/31/20 22:11 82 10 L 160/69 100 05/31/20 22:01 81 24 160/69 100 05/31/20 21:51 92 H 13 150/67 99 05/31/20 21:50 83 150/67 05/31/20 21:41 75 15 144/65 100 20 21:30 75 23 144/65 99 20 21:21 77 21 144/66 100 20 21:11 78 17 139/63 100 05/31/20 21:01 81 22 150/66 98 05/31/20 20:51 84 24 158/72 100 20 20:41 83 19 147/69 100 20 20:30 79 23 147/69 100 20 20:21 78 25 H 139/63 99 05/31/20 20:11 80 24 120/66 99 05/31/20 20:00 98.0 F 78 79 24 139/62 96 05/31/20 19:51 82 24 138/72 99 05/31/20 19:41 84 24 120/66 99 05/31/20 19:30 84 24 120/66 98 05/31/20 19:21 87 24 136/58 99 05/31/20 19:11 81 24 181/89 99 05/31/20 19:01 82 24 138/57 98 05/31/20 18:51 84 25 H 152/63 99 05/31/20 18:41 84 24 177/73 98 05/31/20 18:31 86 25 H 177/73 97 05/31/20 18:21 90 25 H 181/89 99 05/31/20 18:11 81 20 167/89 99 05/31/20 18:01 88 17 172/81 97 05/31/20 17:51 74 24 167/89 99 05/31/20 17:41 74 24 150/73 99 05/31/20 17:31 73 24 162/72 94 05/31/20 17:21 76 24 186/80 97 05/31/20 17:11 92 H 24 140/63 100 05/31/20 17:05 73 150/73 99 05/31/20 17:00 71 24 150/73 96 05/31/20 16:51 66 24 131/61 98 20 16:41 66 24 137/58 99 05/31/20 16:31 68 24 137/58 96 05/31/20 16:21 70 24 140/63 98 05/31/20 16:11 69 24 137/71 98 05/31/20 16:01 72 24 137/71 96 05/31/20 16:00 97.9 F 73 72 24 96 05/31/20 15:51 71 24 142/65 99 05/31/20 15:41 71 24 146/67 99 05/31/20 15:31 71 24 146/67 96 05/31/20 15:21 71 24 148/66 99 05/31/20 15:11 73 24 147/62 99 05/31/20 15:01 73 24 147/62 96 05/31/20 14:51 73 24 157/67 99 05/31/20 14:41 82 24 146/65 98 05/31/20 14:31 73 24 146/65 96 05/31/20 14:21 76 24 155/65 98 05/31/20 14:11 73 24 141/61 99 05/31/20 14:01 72 24 141/61 96 05/31/20 13:51 71 25 H 143/62 99 05/31/20 13:41 68 24 166/68 99 05/31/20 13:34 65 205/86 05/31/20 13:31 65 24 205/86 98 05/31/20 13:21 67 23 191/80 99 05/31/20 13:11 66 24 212/91 99 - Physical Examination Narrative exam: Deferred due to coronavirus isolation protocol. - Labs and Meds Cardiac Enzymes 05/31/20 Range/Units 13:03 AST 15 (5-40) units/L Comprehensive Metabolic Panel 05/31/20 Range/Units 13:03 Sodium 140 (137-145) mmol/L Potassium 4.3 (3.6-5.0) mmol/L Chloride 106.0 (98-107) mmol/L Carbon Dioxide 18 L (22-30) mmol/L BUN 48 H (7-17) mg/dL Creatinine 1.6 H (0.6-1.2) mg/dL Glucose 115 H (65-100) mg/dL Calcium 8.3 L (8.4-10.2) mg/dL AST 15 (5-40) units/L ALT 18 (7-56) units/L Alkaline Phosphatase 107 (35-129) units/L Total Protein 5.4 L (6.3-8.2) g/dL Albumin 2.4 L (3.9-5) g/dL
--- NOTE | 2020-06-01 21:20 | Progress Note ---
Assessment and Plan - Patient Problems (1) Acute hypoxemic respiratory failure Current Visit: Yes Status: Acute Plan to address problem: Patient intubated, sedated and on ventilatory support. Critical care team consulted, wean vent as tolerated, daily spontaneous breathing trial, sedation holiday, ABG, supportive care. The high probability of a clinically significant, sudden or life threatening deterioration of the [pulmonary, renal, cardiac, neuro] system(s) required my full and direct attention, intervention and personal management. The aggregate critical care time was [90] minutes. This time is in addition to time spent performing reported procedures but includes the following: [x] Data Review and interpretation [x] Patient assessment and monitoring of vital signs [x] Documentation [x] Medication orders and management (2) Cardiac arrest Current Visit: Yes Status: Acute Plan to address problem: Cardiology team consulted, echocardiogram pending, serial cardiac enzymes, EKG, telemetry monitoring. (3) Metabolic acidosis Current Visit: Yes Status: Acute Plan to address problem: BMP, repeat BMP in a.m., supportive care. (4) Coronavirus infection Current Visit: Yes Status: Acute Plan to address problem: Infectious disease service consulted, isolation precautions, contact precautions, remdesivir therapy, IV steroid therapy, supportive care. (5) Metabolic encephalopathy Current Visit: Yes Status: Acute Plan to address problem: CT head, neuro check, BMP, supportive care. (6) CHF (congestive heart failure) Current Visit: Yes Status: Acute Qualifiers: Heart failure type: systolic Heart failure chronicity: acute Qualified Code(s): I50.21 - Acute systolic (congestive) heart failure Plan to address problem: Cardiology consulted, strict I's/O, monitor urine output every shift, afterload reduction, blood pressure control. (7) DVT prophylaxis Current Visit: Yes Status: Acute Plan to address problem: SCD to bilateral lower extremities while in bed, prophylactic anticoagulation. (8) Advance care planning Current Visit: Yes Status: Acute Plan to address problem: Disease education conducted, prognosis discussed, +30 minutes. Patient is full code. History Interval history: 64 YO Female HD #5 with Cardiac Arrest, Acute Hypoxemic Respiratory Failure, Systolic CHF (EF 40%), Coronavirus Infection on Remdesivir therapy and Steroid therapy, Metabolic Acidosis, Metabolic Encephalopathy, KAYLIN, AVANI. Patient remains intubated and on ventilatory support today. Patient has multiple organ system failure and has poor prognosis. Patient did not experience significant medical decompensation overnight but no improvement with current therapy. Hospitalist Physical - Constitutional Vitals: Temp Pulse Resp BP Pulse Ox 99.5 F 84 23 163/72 100 06/01/20 20:00 06/01/20 20:11 06/01/20 20:11 06/01/20 20:11 06/01/20 20:11 General appearance: Present: mild distress, obese, other (intubated on the vent) - EENT Eyes: Present: miosis ENT: hearing decreased - Neck Neck: Present: supple - Respiratory Respiratory effort: labored Respiratory: bilateral: diminished - Cardiovascular Rhythm: regular Heart Sounds: Present: S1 & S2 - Extremities Extremities: no ischemia Extremity abnormal: edema - Abdominal General gastrointestinal: soft, non-tender - Integumentary Integumentary: Present: clear, dry - Psychiatric Psychiatric: no appropriate mood/affect, no intact judgment & insight, no memory intact - Neurologic Neurologic: no gait normal Results - Labs CBC & Chem 7: 05/31/20 02:16 05/31/20 13:03 Labs: Laboratory Last Values WBC 9.1 K/mm3 (4.5-11.0) 05/29/20 04:43 RBC 3.48 M/mm3 (3.65-5.03) L 05/29/20 04:43 Hgb 9.2 gm/dl (10.1-14.3) L 05/31/20 02:16 Hct 27.5 % (30.3-42.9) L 05/31/20 02:16 MCV 85 fl (79-97) 05/29/20 04:43 MCH 28 pg (28-32) 05/29/20 04:43 MCHC 33 % (30-34) 05/29/20 04:43 RDW 16.0 % (13.2-15.2) H 05/29/20 04:43 Plt Count 251 K/mm3 (140-440) 05/31/20 02:16 Lymph % (Auto) 7.4 % (13.4-35.0) L 05/29/20 04:43 [place] % (Auto) 3.3 % (0.0-7.3) 05/29/20 04:43 Eos % (Auto) 0.0 % (0.0-4.3) 05/29/20 04:43 Baso % (Auto) 0.2 % (0.0-1.8) 05/29/20 04:43 Lymph # 0.7 K/mm3 (1.2-5.4) L 05/29/20 04:43 [place] # 0.3 K/mm3 (0.0-0.8) 05/29/20 04:43 Eos # 0.0 K/mm3 (0.0-0.4) 05/29/20 04:43 Baso # 0.0 K/mm3 (0.0-0.1) 05/29/20 04:43 Seg Neutrophils % 89.1 % (40.0-70.0) H 05/29/20 04:43 Seg Neutrophils # 8.1 K/mm3 (1.8-7.7) H 05/29/20 04:43 PT 14.2 Sec. (12.2-14.9) 05/29/20 15:10 INR 1.08 (0.87-1.13) 05/29/20 15:10 APTT 27.2 Sec. (24.2-36.6) 05/29/20 15:10 D-Dimer 8780.43 ng/mlDDU (0-234) H 05/28/20 15:33 Heparin Anti-Xa Level 0.31 U.I./ml (0.3-0.7) 06/01/20 08:01 ABG pH 7.371 pH Units (7.350-7.450) 06/01/20 04:00 ABG pCO2 33.2 mm Hg 06/01/20 04:00 ABG pO2 109.8 mm Hg (80.0-90.0) H 06/01/20 04:00 ABG HCO3 18.8 mmol/L (20.0-26.0) L 06/01/20 04:00 ABG O2 Saturation 97.9 % (95.0-99.0) 06/01/20 04:00 ABG O2 Content 10.7 (0.0-44) 06/01/20 04:00 ABG Base Excess -5.9 mmol/L (-2.0-3.0) L 06/01/20 04:00 ABG Hemoglobin 7.8 gm/dl (12.0-16.0) L 06/01/20 04:00 ABG Carboxyhemoglobin 1.1 % (0.0-5.0) 06/01/20 04:00 ABG Methemoglobin 0.5 % (0.0-1.5) 06/01/20 04:00 VBG pH 7.152 (7.320-7.420) L* 05/28/20 13:47 Oxyhemoglobin 96.4 % (95.0-99.0) 06/01/20 04:00 FiO2 40 % 06/01/20 04:00 Sodium 140 mmol/L (137-145) 05/31/20 13:03 Potassium 4.3 mmol/L (3.6-5.0) 05/31/20 13:03 Chloride 106.0 mmol/L (98-107) 05/31/20 13:03 Carbon Dioxide 18 mmol/L (22-30) L 05/31/20 13:03 Anion Gap 20 mmol/L 05/31/20 13:03 BUN 48 mg/dL (7-17) H 05/31/20 13:03 Creatinine 1.6 mg/dL (0.6-1.2) H 05/31/20 13:03 Estimated GFR 33 ml/min 05/31/20 13:03 BUN/Creatinine Ratio 30 % 05/31/20 13:03 Glucose 115 mg/dL (65-100) H 05/31/20 13:03 POC Glucose 209 (70-105) H 06/01/20 17:29 Lactic Acid 1.90 mmol/L (0.7-2.0) 05/28/20 14:46 Calcium 8.3 mg/dL (8.4-10.2) L 05/31/20 13:03 Ferritin 179.4 ng/mL (10.0-200.0) 05/28/20 15:33 Total Bilirubin < 0.20 mg/dL (0.1-1.2) 05/31/20 13:03 AST 15 units/L (5-40) 05/31/20 13:03 ALT 18 units/L (7-56) 05/31/20 13:03 Alkaline Phosphatase 107 units/L (35-129) 05/31/20 13:03 Lactate Dehydrogenase 365 units/L (91-180) H 05/28/20 15:33 Total Creatine Kinase 301 units/L (30-135) H 05/28/20 13:47 CK-MB (CK-2) 4.3 ng/mL (0.0-4.0) H 05/28/20 13:47 CK-MB (CK-2) Rel Index 1.4 (0-4) 05/28/20 13:47 C-Reactive Protein 0.20 mg/dL (0.00-1.30) 05/28/20 15:33 Total Protein 5.4 g/dL (6.3-8.2) L 05/31/20 13:03 Albumin 2.4 g/dL (3.9-5) L 05/31/20 13:03 Albumin/Globulin Ratio 0.8 % 05/31/20 13:03 Procalcitonin < 0.05 ng/mL (<0.15) 05/28/20 15:33 Urine Color Yellow (Yellow) 05/28/20 16:30 Urine Turbidity Slightly-cloudy (Clear) 05/28/20 16:30 Urine pH 6.0 (5.0-7.0) 05/28/20 16:30 Ur Specific [place] 1.018 (1.003-1.030) 05/28/20 16:30 Urine Protein >500 mg/dL (Negative) 05/28/20 16:30 Urine Glucose (UA) >=500 mg/dL (Negative) 05/28/20 16:30 Urine Ketones Neg mg/dL (Negative) 05/28/20 16:30 Urine Blood Neg (Negative) 05/28/20 16:30 Urine Nitrite Neg (Negative) 05/28/20 16:30 Urine Bilirubin Neg (Negative) 05/28/20 16:30 Urine Urobilinogen < 2.0 mg/dL (<2.0) 05/28/20 16:30 Ur Leukocyte Esterase Neg (Negative) 05/28/20 16:30 Urine WBC (Auto) 17.0 /HPF (0.0-6.0) H 05/28/20 16:30 Urine RBC (Auto) 22.0 /HPF (0.0-6.0) 05/28/20 16:30 U Epithel Cells (Auto) 2.0 /HPF (0-13.0) 05/28/20 16:30 Urine Bacteria (Auto) 2+ /HPF (Negative) 05/28/20 16:30 Urine Mucus Few /HPF 05/28/20 16:30 Urine Yeast (Budding) 1+ /HPF 05/28/20 16:30 Coronavirus (PCR) Positive (Negative) A 05/28/20 Unknown Microbiology: Microbiology 05/28/20 15:33 Peripheral/Venous Blood Culture - Preliminary NO GROWTH AFTER 4 DAYS 05/28/20 15:40 Peripheral/Venous Blood Culture - Preliminary NO GROWTH AFTER 4 DAYS - Diagnostic Impressions Diagnostic Impressions: Echocardiogram Limited Views 05/29/20 13:52 Transthoracic Echocardiogram Indication: Pulm Embolus BP: 169/76 HR: 85 Conclusions *Limited study for RV size post cardiopulmonar arrest. *RV is only slightly dilated, no significant difference from prior echo 05/13/2020. *Global left ventricular systolic function is at the lower limits of normal. *The estimated ejection fraction is 45-50%. *Mild to moderate concentric left ventricular hypertrophy is observed. *The left and right atria are both mild to moderately dilated. Findings Left Ventricle: The left ventricular chamber size is mildly dilated. Mild to moderate concentric left ventricular hypertrophy is observed. Global left ventricular systolic function is at the lower limits of normal. The estimated ejection fraction is 45-50%. Left Atrium: The left atrium is mild to moderately dilated. Right Ventricle: The right ventricle is slightly dilated. Right Atrium: The right atrium is mild to moderately dilated. Aortic Valve: The aortic valve leaflets are moderately thickened. Mitral Valve: There is mitral annular calcification. The mitral valve leaflets are moderately thickened. Tricuspid Valve: The tricuspid valve leaflets are mildly thickened. Pericardium: A trivial pericardial effusion is visualized. NDUM: 05/29/20 1808 Amended Report Transthoracic Echocardiogram Indication: Pulm Embolus BP: 169/76 HR: 85 Conclusions *Limited study for RV size post cardiopulmonary arrest. *RV is only slightly dilated, no significant difference from prior echo 05/13/2020. *Global left ventricular systolic function is at the lower limits of normal. *The estimated ejection fraction is 45-50%. *Mild to moderate concentric left ventricular hypertrophy is observed. *The left and right atria are both mild to moderately dilated. Findings Left Ventricle: The left ventricular chamber size is mildly dilated. Mild to moderate concentric left ventricular hypertrophy is observed. Global left ventricular systolic function is at the lower limits of normal. The estimated ejection fraction is 45-50%. Left Atrium: The left atrium is mild to moderately dilated. Right Ventricle: The right ventricle is slightly dilated. Right Atrium: The right atrium is mild to moderately dilated. Aortic Valve: The aortic valve leaflets are moderately thickened. Mitral Valve: There is mitral annular calcification. The mitral valve leaflets are moderately thickened. Tricuspid Valve: The tricuspid valve leaflets are mildly thickened. Pericardium: A trivial pericardial effusion is visualized. Helm/IV: Voiding Method Indwelling Catheter IV Catheter Type [Right Peripheral IV Forearm] IV Catheter Type [Left Leg] Intra-osseous Active Medications - Current Medications Current Medications: Generic Name Dose Route Start Last Admin Trade Name Freq PRN Reason Stop Dose Admin Lipase/Protease/Amylase 1 each 05/29/20 13:[address] 10,500 Unit FEEDTUBE PRN PRN For Clogged Feeding Tube Dexamethasone 6 mg 05/29/20 15:00 06/01/20 12:07 Decadron PO 06/07/20 10:01 6 mg DAILY NELSON Administration Famotidine 20 mg 06/01/20 10:00 06/01/20 12:06 Pepcid PO 20 mg BID NELSON Administration Fentanyl 50 mcg 05/29/20 14:21 Sublimaze IV Q10MIN PRN ANALGESIA Furosemide 10 mg 05/30/20 18:00 06/01/20 17:59 Lasix IV 10 mg 0600,1800 NELSON Administration Hydralazine HCl 25 mg 06/01/20 12:00 06/01/20 16:33 Apresoline PO 25 mg Q8HR NELSON Administration Hydrophilic Ointment 1 applic 05/28/20 13:49 Vaseline Lip Therapy TP Q2HR PRN Dry Lips Heparin Sodium/Sodium Chloride 25,000 unit in 500 mls @ 30 mls/hr 05/29/20 15:00 06/01/20 08:36 Heparin/ 0.45% Nacl-25,000 Unit/500 Ml IV 1,100 units/hr TITR NELSON 22 mls/hr Titration Protocol 1,500 UNITS/HR Fentanyl Citrate 2,000 mcg in 100 mls @ 6.095 mls/hr 05/29/20 15:00 06/01/20 15:30 Fentanyl Drip Premix IV 2 mcg/kg/hr TITR NELSON 12.19 mls/hr Titration Protocol 1 MCG/KG/HR REMDESIVIR 100 mg/ Sodium 250 mls @ 500 mls/hr 05/30/20 21:00 05/31/20 21:52 Chloride IV 06/02/20 21:29 500 mls/hr Q24HR@2100 NELSON Administration Insulin Human Lispro 0 unit 05/29/20 18:00 06/01/20 17:59 Humalog SUB-Q 4 unit Q6H NELSON Administration Protocol Levetiracetam 500 mg 05/29/20 22:00 06/01/20 12:06 Keppra PO 500 mg BID NELSON Administration Lisinopril 20 mg 05/31/20 12:00 06/01/20 12:06 Zestril PO 20 mg BID NELSON Administration Multi-Ingred Cream/Lotion/Oil/Oint 1 applic 05/28/20 13:49 Artificial Tears Ophth Oint OU Q4HR PRN Dry Eye(s) Simple Syrup 15 ml 05/29/20 13:39 Simple Syrup FEEDTUBE PRN PRN Hypoglycemia Simple Syrup 30 ml 05/29/20 13:39 Simple Syrup FEEDTUBE PRN PRN Hypoglycemia Sodium Bicarbonate 325 mg 05/29/20 13:39 Sodium Bicarbonate FEEDTUBE PRN PRN For Clogged Feeding Tube Sodium Chloride 10 ml 05/28/20 22:00 06/01/20 12:08 Sodium Chloride Flush Syringe 10 Ml IV 10 ml BID NELSON Administration Sodium Chloride 10 ml 05/28/20 19:08 Sodium Chloride Flush Syringe 10 Ml IV PRN PRN LINE FLUSH Sodium Chloride 50 ml 05/29/20 17:30 05/31/20 21:52 Nacl 0.9% IV 06/02/20 21:31 50 ml 2130 NELSON Administration Nutrition/Malnutrition Assess - Dietary Evaluation Nutrition/Malnutrition Findings: Nutrition Notes Start: 05/29/20 11:45 Freq: Status: Active Protocol: Document 06/01/20 09:57 JOSEF (Rec: 06/01/20 10:02 JOSEF [email or web address]) Nutrition Notes Initial or Follow up Reassessment Current Diagnosis Heart Failure,Respiratory Failure Other Pertinent Diagnosis s/p Cardiac Arrest, Metabolic Encephalopathy, COVID-19 (+) Current Diet TF - Nepro at 40ml/hr Labs/Tests Reviewed Pertinent Medications Lasix Height 5 ft 6 in Weight 123 kg [place] Body Weight (kg) 59.09 BMI 43.7 Weight Status Morbidly Obese Subjective/Other Information Per RN, pt tolerating TF at goal rate. Pt remains on vent support. Burn Absent Trauma Absent #1 Nutrition Diagnosis Inadequate oral intake Diagnosis Progress(for reassessment Continues documentation) Is patient on ventilator? Yes Is Patient Ambulatory and/or Out of Bed No REE-([place]-confined to bed) [phone] Additional Notes Pro needs up to 2.5g/kg IBW: up to 148g/day Fluid needs 1ml/kcal Nutrition Intervention Nutrition Support: Continue Nepro at 40ml/hr Flush with 175ml q4h Kcal 1,728 Protein (gm) 78 Fluid (mL) 698 Goal #1 TF tolerance Goal #2 TF to meet at least 75% energy and pro needs Follow-Up By: 06/08/20 Additional Comments F/U: stable TF, vent status, wt
[2020-06-01] MEDS: REMDESIVIR 100 MG in SODIUM CHLORIDE 0.9% 250ML 250 ML IV SCH (22:36)
[2020-06-01] MEDS: SODIUM CHLORIDE 0.9% 50 ML IVPB IV SCH (22:37)
[2020-06-01] MEDS ORDERED: hydrALAZINE 20 MG/1 ML INJ IV PRN (23:55)
[2020-06-02] MEDS: INSULIN LISPRO 100 UNIT/ML VIAL 3 mL SUB-Q SCH ×4 (00:51→18:18)
--- NOTE | 2020-06-02 03:54 | XRay Report ---
CHEST 1 VIEW, 06/02/2020 1:30 AM CLINICAL INFORMATION/INDICATION: Respiratory failure COMPARISON: Chest radiograph, 06/01/2020 at 4:05 AM FINDINGS: SUPPORT DEVICES: Endotracheal tube and esophagogastric tube project in stable position. HEART: There is stable enlargement of the cardiac silhouette. LUNGS/PLEURA: Mixed interstitial and airspace disease overall has improved since the previous study. No pneumothorax is visualized. ADDITIONAL FINDINGS: No additional acute findings. IMPRESSION: 1. Interval improvement of mixed interstitial and airspace disease. This may be secondary to resolvin g pulmonary edema. Signer Name: Jasmina Woo MD Signed: 06/02/2020 3:50 AM Workstation Name: [id number]
[2020-06-02 05:04] LABS: ABG Base Excess -4.1 mmol/L (-2.0-3.0); ABG HCO3 20.3 mmol/L (20.0-26.0); ABG Methemoglobin 0.7 % (0.0-1.5); ABG Oxygen Saturation 98.9 % (95.0-99.0); ABG PCO2 34.8 mm Hg; ABG PH 7.383 pH Units (7.350-7.450); ABG PO2 150.6 mm Hg (80.0-90.0)
[2020-06-02 05:43] LABS: Hematocrit 30.3 % (30.3-42.9)
[2020-06-02] MEDS: HEPARIN/ 0.45% NACL DRIP 25,000 UNIT/500 ML BAG IV SCH (05:47)
[2020-06-02] MEDS: FUROSEMIDE 20 MG/2 ML INJ IV SCH (05:48)
[2020-06-02] MEDS ORDERED: cloNIDine 0.2 MG TAB PO ONE (07:15)
[2020-06-02] MEDS: fentaNYL DRIP Premix 2,000 MCG/100 ML BAG IV SCH ×2 (07:41→22:33)
[2020-06-02] MEDS ORDERED: niCARdipine 50 MG in SODIUM CHLORIDE 0.9% 250ML 230 ML IV SCH (09:00)
--- NOTE | 2020-06-02 09:39 | Progress Note ---
Assessment and Plan Acute hypoxemic respiratory failure orally intubated on MVS Severe COVID infection Multifocal pneumonia Morbid obesity Acute toxic metabolic encephalopathy AVANI secondary to COVID/vasomotor nephropathy Bilateral pulmonary edema. Bilateral pleural effusions. History of congestive heart failure. Morbid obesity. History of pulmonary hypertension. History of hypertension. Diabetes. Obesity hypoventilation syndrome. Elevated serum inflammatory markers to include D-dimers and LDH levels. Hyperkalemia at presentation. Metabolic acidosis. Oropharyngeal dysphagia. -Resume home anti-hypertensives -IV Lasix 40mg x1 today, BMP in the morning -Add Clonidine to therapy to help with agitation and hypertension -wean Cardene infusion for SBP<150 -Continue with Helm catheter in this critically ill patient with renal impairment and on mechanical ventilatory support -SAT and SBT today as tolerated - VAP bundle addressed -Aspiration precautions, HOB >40 - continue lung protective strategies-ARDS. net -Permissive hypercapnic is acceptable -CXR, ABG in am - continue bronchodilators with pulmonary hygiene per RT - wean per pulmonary driven protocols otherwise - continue to avoid benzodiazepines, reduce the possibility of delirium - prn analgesia per CPOT score - sedation prn for target RASS 0 to -1 - Continue to wean supplemental oxygen for target O2 sats > 92% - conservative fluid management measures as tolerated by hemodynamics and renal function - Bronchodilators with pulmonary hygiene per RT -Monitor off antibiotics - Accuchecks with glycemic control per SSI (While critically ill target blood glucose of 140-180 mg/dL; avoid hypoglycemia) - Maintenance of sleep-wake cycle, avoid delirium - Avoid nephrotoxins, closely monitor renal function, dose all medications for renal function - Aspiration precautions, HOB >40 - Stress ulcer prophylaxis -Famotidine - VTE prophylaxis on adjust based on D-dimer levels - Mobility protocol, off loading and skin assessment for pressure ulcer preve ntion - Monitor hemodynamics closely -Re-evalaute need for Helm catheter, plan to discontinue in the morning - Supportive transfusions as indicated to keep HgB >7g/dL COVID SPECIFIC INTERVENTIONS -Airborne, contact isolation for COVID per facility protocols - Remdesivir- last dose today, monitor closely for toxicities -IV steroids-Dexamethasone -Trend d-dimer,and other inflammatory markers per facility protocol -Evaluate for Convalescent plasma therapy per facility protocol -Continue all supportive care Discussed with the ICU team-RT,RN, Life threatening condition- COVID 19 ARDS acute hypoxemic respiratory failure on MVS Mortality/Morbidity- High Complexity of medical decision making- High CONDITION: CRITICAL PROGNOSIS: GUARDED CODE STATUS: FULL CODE The high probability of a clinically significant, sudden or life-threatening deterioration of the [respiratory & neurology, renal ] system(s) required my full and direct attention, intervention and personal management. The aggregate critical care time was [35] minutes without overlap. Time includes spent on; [x] Data Review and interpretation [x] Patient assessment and monitoring of vital signs [x] Documentation [x] Medication orders and management Subjective Date of service: 06/02/20 Principal diagnosis: Ac hypoxemic resp failure; COVID-19; pneumonia; CHF; Pulm HTN; OHS; DM II Interval history: Patient is seen today for: Ac hypoxemic resp failure; Coronavirus-19 infection; pneumonia; Pulmonary edema; Bilateral pleural effusions; CHF; Morbid obesity; pulmonary hypertension; OHS; DM II Seen and examined at bedside; 24hour events reviewed; nursing and respiratory care staff consulted; no adverse overnight events reported to me; resting peacefully in bed; remains on MVS; no emesis or overt aspiration; no high grade fevers, tolerating tube feeds at goal Hypertension overnight, nicardipine infusion was initiated. Remains on heparin infusion, and fentanyl at 2mcg Has Helm catheter Objective Vital Signs - 12hr 06/01/20 06/01/20 06/01/20 21:41 21:51 22:01 Temperature Pulse Rate 105 H 103 H 95 H Pulse Rate [ From Monitor] Respiratory 19 21 24 Rate Blood Pressure 205/95 218/96 194/85 O2 Sat by Pulse 99 99 96 Oximetry 06/01/20 06/01/20 06/01/20 22:11 22:21 22:31 Temperature Pulse Rate 93 H 96 H 97 H Pulse Rate [ From Monitor] Respiratory 24 24 24 Rate Blood Pressure 194/85 191/100 197/85 O2 Sat by Pulse 99 99 96 Oximetry 06/01/20 06/01/20 06/01/20 22:35 22:38 22:41 Temperature Pulse Rate 93 H 97 H 89 Pulse Rate [ From Monitor] Respiratory 24 Rate Blood Pressure 197/85 187/85 197/85 O2 Sat by Pulse 99 Oximetry 06/01/20 06/01/20 06/01/20 22:51 23:01 23:11 Temperature Pulse Rate 95 H 95 H 89 Pulse Rate [ From Monitor] Respiratory 18 18 24 Rate Blood Pressure 206/94 105/86 105/86 O2 Sat by Pulse 99 99 99 Oximetry 06/01/20 06/01/20 06/01/20 23:21 23:31 23:35 Temperature Pulse Rate 92 H 85 85 Pulse Rate [ 84 From Monitor] Respiratory 24 Rate Blood Pressure 213/92 220/91 O2 Sat by Pulse 99 97 99 Oximetry 06/01/20 06/01/20 06/02/20 23:41 23:51 00:00 Temperature 98.9 F Pulse Rate 86 83 Pulse Rate [ From Monitor] Respiratory Rate Blood Pressure 220/91 220/91 O2 Sat by Pulse 100 100 Oximetry 06/02/20 06/02/20 06/02/20 00:01 00:11 00:21 Temperature Pulse Rate 85 82 85 Pulse Rate [ From Monitor] Respiratory Rate Blood Pressure 220/91 220/91 220/91 O2 Sat by Pulse 99 99 99 Oximetry 06/02/20 06/02/20 06/02/20 00:31 00:41 00:49 Temperature Pulse Rate 82 88 86 Pulse Rate [ From Monitor] Respiratory Rate Blood Pressure 220/91 220/91 200/90 O2 Sat by Pulse 100 99 Oximetry 06/02/20 06/02/20 06/02/20 00:51 01:01 01:10 Temperature Pulse Rate 84 77 78 Pulse Rate [ From Monitor] Respiratory Rate Blood Pressure 220/91 220/91 214/85 O2 Sat by Pulse 100 99 96 Oximetry 06/02/20 06/02/20 06/02/20 01:21 01:30 01:41 Temperature Pulse Rate 79 82 75 Pulse Rate [ From Monitor] Respiratory 24 Rate Blood Pressure 214/85 216/97 216/97 O2 Sat by Pulse 99 96 99 Oximetry 06/02/20 06/02/20 06/02/20 01:51 02:01 02:11 Temperature Pulse Rate 75 74 74 Pulse Rate [ From Monitor] Respiratory 24 Rate Blood Pressure 216/97 208/84 208/84 O2 Sat by Pulse 99 96 99 Oximetry 06/02/20 06/02/20 06/02/20 02:21 02:31 02:41 Temperature Pulse Rate 78 74 73 Pulse Rate [ From Monitor] Respiratory 24 Rate Blood Pressure 208/84 220/89 220/89 O2 Sat by Pulse 99 97 99 Oximetry 06/02/20 06/02/20 06/02/20 02:51 03:01 03:11 Temperature Pulse Rate 78 73 70 Pulse Rate [ From Monitor] Respiratory 24 Rate Blood Pressure 220/89 195/83 195/83 O2 Sat by Pulse 98 96 99 Oximetry 06/02/20 06/02/20 06/02/20 03:21 03:30 03:33 Temperature Pulse Rate 70 74 74 Pulse Rate [ 84 From Monitor] Respiratory 24 Rate Blood Pressure 195/83 207/90 O2 Sat by Pulse 99 96 99 Oximetry 06/02/20 06/02/20 06/02/20 03:41 03:51 04:00 Temperature 99.4 F Pulse Rate 77 77 74 Pulse Rate [ 84 From Monitor] Respiratory H 24 24 Rate Blood Pressure 207/90 207/90 215/94 O2 Sat by Pulse 99 99 97 Oximetry 06/02/20 06/02/20 06/02/20 04:11 04:21 04:31 Temperature Pulse Rate 73 76 78 Pulse Rate [ From Monitor] Respiratory 24 25 H 24 Rate Blood Pressure 215/94 215/94 231/96 O2 Sat by Pulse 99 100 97 Oximetry 06/02/20 06/02/20 06/02/20 04:41 04:51 05:01 Temperature Pulse Rate 82 76 74 Pulse Rate [ From Monitor] Respiratory 24 Rate Blood Pressure 215/94 215/94 210/85 O2 Sat by Pulse 99 99 97 Oximetry 06/02/20 06/02/20 06/02/20 05:11 05:18 05:21 Temperature Pulse Rate 73 73 72 Pulse Rate [ 84 From Monitor] Respiratory 24 Rate Blood Pressure 231/96 231/96 O2 Sat by Pulse 99 99 99 Oximetry 06/02/20 06/02/20 06/02/20 05:31 05:41 05:48 Temperature Pulse Rate 70 71 74 Pulse Rate [ From Monitor] Respiratory 24 Rate Blood Pressure 189/79 189/79 189/79 O2 Sat by Pulse 97 99 Oximetry 06/02/20 06/02/20 06/02/20 05:51 06:01 06:11 Temperature Pulse Rate 78 84 88 Pulse Rate [ From Monitor] Respiratory 22 25 H 24 Rate Blood Pressure 189/79 211/97 211/97 O2 Sat by Pulse 99 96 99 Oximetry 06/02/20 06/02/20 06/02/20 06:21 06:30 06:41 Temperature Pulse Rate 87 89 89 Pulse Rate [ From Monitor] Respiratory 24 16 Rate Blood Pressure 211/97 231/115 231/115 O2 Sat by Pulse 99 97 99 Oximetry 06/02/20 06/02/20 06/02/20 06:51 07:01 07:11 Temperature Pulse Rate 75 75 75 Pulse Rate [ From Monitor] Respiratory 24 24 Rate Blood Pressure 231/115 233/98 233/98 O2 Sat by Pulse 99 97 99 Oximetry 06/02/20 06/02/20 06/02/20 07:21 07:31 07:41 Temperature Pulse Rate 75 78 74 Pulse Rate [ From Monitor] Respiratory 24 24 Rate Blood Pressure 233/98 240/105 240/105 O2 Sat by Pulse 99 97 99 Oximetry 06/02/20 06/02/20 06/02/20 07:42 07:51 08:00 Temperature 98.4 F Pulse Rate 78 80 78 Pulse Rate [ 77 From Monitor] Respiratory 24 Rate Blood Pressure 240/105 240/105 203/83 O2 Sat by Pulse 99 97 Oximetry 06/02/20 06/02/20 06/02/20 08:11 08:21 08:30 Temperature Pulse Rate 77 81 81 Pulse Rate [ From Monitor] Respiratory 24 24 Rate Blood Pressure 203/83 203/83 211/89 O2 Sat by Pulse 99 99 97 Oximetry 06/02/20 06/02/20 06/02/20 08:41 08:51 09:00 Temperature Pulse Rate 79 77 77 Pulse Rate [ From Monitor] Respiratory 24 24 Rate Blood Pressure 203/83 203/83 230/100 O2 Sat by Pulse 99 99 97 Oximetry 06/02/20 06/02/20 06/02/20 09:07 09:11 09:21 Temperature Pulse Rate 74 75 74 Pulse Rate [ From Monitor] Respiratory 24 Rate Blood Pressure 230/100 211/89 226/96 O2 Sat by Pulse 99 99 99 Oximetry 06/02/20 09:31 Temperature Pulse Rate 75 Pulse Rate [ From Monitor] Respiratory 24 Rate Blood Pressure 218/79 O2 Sat by Pulse 97 Oximetry Constitutional: no acute distress, other (elderly looking obese female riding set rate on MVS at rest) Eyes: non-icteric ENT: oropharynx moist, other (ETT 7.0 at 20 cm AYAN) CBC and BMP: 06/02/20 04:20 05/31/20 13:03 ABG, PT/INR, D-dimer: ABG ABG pH 7.383 pH Units (7.350-7.450) 06/02/20 04:44 ABG pCO2 34.8 mm Hg 06/02/20 04:44 ABG pO2 150.6 mm Hg (80.0-90.0) H 06/02/20 04:44 ABG O2 Saturation 98.9 % (95.0-99.0) 06/02/20 04:44 PT/INR, D-dimer PT 14.2 Sec. (12.2-14.9) 05/29/20 15:10 INR 1.08 (0.87-1.13) 05/29/20 15:10 D-Dimer 8780.43 ng/mlDDU (0-234) H 05/28/20 15:33 Abnormal lab findings: Abnormal Labs 05/28/20 05/28/20 05/28/20 13:29 13:47 13:47 RBC Hgb Hct RDW 15.3 H Lymph % (Auto) Lymph # Seg Neutrophils % Seg Neutrophils # D-Dimer Heparin Anti-Xa Level ABG pH ABG pO2 ABG HCO3 ABG O2 Saturation ABG Base Excess ABG Hemoglobin VBG pH Potassium 6.6 H* Chloride 109.2 H Carbon Dioxide 17 L BUN 29 H Creatinine 1.3 H Glucose 265 H POC Glucose 248 H Lactic Acid Calcium 8.1 L AST 63 H Lactate Dehydrogenase Total Creatine Kinase 301 H CK-MB (CK-2) 4.3 H Total Protein 5.4 L Albumin 2.6 L Urine WBC (Auto) Coronavirus (PCR) 05/28/20 05/28/20 05/28/20 13:47 13:47 14:46 RBC Hgb Hct RDW Lymph % (Auto) Lymph # Seg Neutrophils % Seg Neutrophils # D-Dimer Heparin Anti-Xa Level ABG pH ABG pO2 ABG HCO3 ABG O2 Saturation ABG Base Excess ABG Hemoglobin VBG pH 7.152 L* Potassium 7.2 H* Chloride Carbon Dioxide BUN Creatinine Glucose POC Glucose Lactic Acid 3.40 H* Calcium AST Lactate Dehydrogenase Total Creatine Kinase CK-MB (CK-2) Total Protein Albumin Urine WBC (Auto) Coronavirus (PCR) 05/28/20 05/28/20 05/28/20 15:33 15:33 15:51 RBC Hgb Hct RDW Lymph % (Auto) Lymph # Seg Neutrophils % Seg Neutrophils # D-Dimer 8780.43 H Heparin Anti-Xa Level ABG pH 7.284 L ABG pO2 273.0 H ABG HCO3 ABG O2 Saturation 99.4 H ABG Base Excess -6.1 L ABG Hemoglobin 17.2 H VBG pH Potassium Chloride Carbon Dioxide BUN Creatinine Glucose 152 H POC Glucose Lactic Acid Calcium AST Lactate Dehydrogenase 365 H Total Creatine Kinase CK-MB (CK-2) Total Protein Albumin Urine WBC (Auto) Coronavirus (PCR) 05/28/20 05/28/20 05/28/20 16:30 23:20 Unknown RBC Hgb Hct RDW Lymph % (Auto) Lymph # Seg Neutrophils % Seg Neutrophils # D-Dimer Heparin Anti-Xa Level ABG pH ABG pO2 ABG HCO3 ABG O2 Saturation ABG Base Excess ABG Hemoglobin VBG pH Potassium Chloride Carbon Dioxide BUN Creatinine Glucose POC Glucose 224 H Lactic Acid Calcium AST Lactate Dehydrogenase Total Creatine Kinase CK-MB (CK-2) Total Protein Albumin Urine WBC (Auto) 17.0 H Coronavirus (PCR) Positive A 05/29/20 05/29/20 05/29/20 04:35 04:43 04:43 RBC 3.48 L Hgb 9.8 L Hct 29.4 L RDW 16.0 H Lymph % (Auto) 7.4 L Lymph # 0.7 L Seg Neutrophils % 89.1 H Seg Neutrophils # 8.1 H D-Dimer Heparin Anti-Xa Level ABG pH ABG pO2 ABG HCO3 19.3 L ABG O2 Saturation ABG Base Excess -4.5 L ABG Hemoglobin 9.7 L VBG pH Potassium Chloride 110.2 H Carbon Dioxide 18 L BUN 32 H Creatinine 1.4 H Glucose 180 H POC Glucose Lactic Acid Calcium AST Lactate Dehydrogenase Total Creatine Kinase CK-MB (CK-2) Total Protein Albumin Urine WBC (Auto) Coronavirus (PCR) 05/29/20 05/29/20 05/30/20 15:10 17:17 00:08 RBC Hgb 9.3 L Hct 28.7 L RDW Lymph % (Auto) Lymph # Seg Neutrophils % Seg Neutrophils # D-Dimer Heparin Anti-Xa Level 0.71 H ABG pH ABG pO2 ABG HCO3 ABG O2 Saturation ABG Base Excess ABG Hemoglobin VBG pH Potassium Chloride Carbon Dioxide BUN Creatinine Glucose POC Glucose 147 H Lactic Acid Calcium AST Lactate Dehydrogenase Total Creatine Kinase CK-MB (CK-2) Total Protein Albumin Urine WBC (Auto) Coronavirus (PCR) 05/30/20 05/30/20 05/30/20 00:12 04:15 06:07 RBC Hgb Hct RDW Lymph % (Auto) Lymph # Seg Neutrophils % Seg Neutrophils # D-Dimer Heparin Anti-Xa Level ABG pH 7.460 H ABG pO2 106.0 H ABG HCO3 18.9 L ABG O2 Saturation ABG Base Excess -4.4 L ABG Hemoglobin 6.8 L VBG pH Potassium Chloride Carbon Dioxide BUN Creatinine Glucose POC Glucose 195 H 182 H Lactic Acid Calcium AST Lactate Dehydrogenase Total Creatine Kinase CK-MB (CK-2) Total Protein Albumin Urine WBC (Auto) Coronavirus (PCR) 05/30/20 05/30/20 05/30/20 08:37 12:33 15:58 RBC Hgb Hct RDW Lymph % (Auto) Lymph # Seg Neutrophils % Seg Neutrophils # D-Dimer Heparin Anti-Xa Level 0.85 H 1.03 H ABG pH ABG pO2 ABG HCO3 ABG O2 Saturation ABG Base Excess ABG Hemoglobin VBG pH Potassium Chloride Carbon Dioxide BUN Creatinine Glucose POC Glucose 187 H Lactic Acid Calcium AST Lactate Dehydrogenase Total Creatine Kinase CK-MB (CK-2) Total Protein Albumin Urine WBC (Auto) Coronavirus (PCR) 05/30/20 05/30/20 05/31/20 17:57 23:36 02:16 RBC Hgb 9.2 L Hct 27.5 L RDW Lymph % (Auto) Lymph # Seg Neutrophils % Seg Neutrophils # D-Dimer Heparin Anti-Xa Level ABG pH ABG pO2 ABG HCO3 ABG O2 Saturation ABG Base Excess ABG Hemoglobin VBG pH Potassium Chloride Carbon Dioxide BUN Creatinine Glucose POC Glucose 208 H 185 H Lactic Acid Calcium AST Lactate Dehydrogenase Total Creatine Kinase CK-MB (CK-2) Total Protein Albumin Urine WBC (Auto) Coronavirus (PCR) 05/31/20 05/31/20 05/31/20 03:55 06:16 12:20 RBC Hgb Hct RDW Lymph % (Auto) Lymph # Seg Neutrophils % Seg Neutrophils # D-Dimer Heparin Anti-Xa Level ABG pH ABG pO2 94.7 H ABG HCO3 18.6 L ABG O2 Saturation ABG Base Excess -5.5 L ABG Hemoglobin 7.9 L VBG pH Potassium Chloride Carbon Dioxide BUN Creatinine Glucose POC Glucose 160 H 128 H Lactic Acid Calcium AST Lactate Dehydrogenase Total Creatine Kinase CK-MB (CK-2) Total Protein Albumin Urine WBC (Auto) Coronavirus (PCR) 05/31/20 05/31/20 05/31/20 13:03 18:13 23:51 RBC Hgb Hct RDW Lymph % (Auto) Lymph # Seg Neutrophils % Seg Neutrophils # D-Dimer Heparin Anti-Xa Level ABG pH ABG pO2 ABG HCO3 ABG O2 Saturation ABG Base Excess ABG Hemoglobin VBG pH Potassium Chloride Carbon Dioxide 18 L BUN 48 H Creatinine 1.6 H Glucose 115 H POC Glucose 159 H 171 H Lactic Acid Calcium 8.3 L AST Lactate Dehydrogenase Total Creatine Kinase CK-MB (CK-2) Total Protein 5.4 L Albumin 2.4 L Urine WBC (Auto) Coronavirus (PCR) 06/01/20 06/01/20 06/01/20 04:00 05:48 12:28 RBC Hgb Hct RDW Lymph % (Auto) Lymph # Seg Neutrophils % Seg Neutrophils # D-Dimer Heparin Anti-Xa Level ABG pH ABG pO2 109.8 H ABG HCO3 18.8 L ABG O2 Saturation ABG Base Excess -5.9 L ABG Hemoglobin 7.8 L VBG pH Potassium Chloride Carbon Dioxide BUN Creatinine Glucose POC Glucose 133 H 199 H Lactic Acid Calcium AST Lactate Dehydrogenase Total Creatine Kinase CK-MB (CK-2) Total Protein Albumin Urine WBC (Auto) Coronavirus (PCR) 06/01/20 06/02/20 06/02/20 17:29 00:08 04:20 RBC Hgb 10.0 L Hct RDW Lymph % (Auto) Lymph # Seg Neutrophils % Seg Neutrophils # D-Dimer Heparin Anti-Xa Level ABG pH ABG pO2 ABG HCO3 ABG O2 Saturation ABG Base Excess ABG Hemoglobin VBG pH Potassium Chloride Carbon Dioxide BUN Creatinine Glucose POC Glucose 209 H 162 H Lactic Acid Calcium AST Lactate Dehydrogenase Total Creatine Kinase CK-MB (CK-2) Total Protein Albumin Urine WBC (Auto) Coronavirus (PCR) 06/02/20 06/02/20 06/02/20 04:20 04:44 05:53 RBC Hgb Hct RDW Lymph % (Auto) Lymph # Seg Neutrophils % Seg Neutrophils # D-Dimer Heparin Anti-Xa Level 0.10 L ABG pH ABG pO2 150.6 H ABG HCO3 ABG O2 Saturation ABG Base Excess -4.1 L ABG Hemoglobin 11.8 L VBG pH Potassium Chloride Carbon Dioxide BUN Creatinine Glucose POC Glucose 149 H Lactic Acid Calcium AST Lactate Dehydrogenase Total Creatine Kinase CK-MB (CK-2) Total Protein Albumin Urine WBC (Auto) Coronavirus (PCR) Allied health notes reviewed: RT (Pulmoanry edema with bilateral pleural effusions)
[2020-06-02] MEDS: FAMOTIDINE 20 MG TAB PO SCH (10:56)
[2020-06-02] MEDS: carvediloL 6.25 MG TAB PO SCH ×2 (10:57→21:33)
[2020-06-02] MEDS: cloNIDine 0.1 MG TAB PO SCH ×2 (10:57→21:31)
[2020-06-02] MEDS: levETIRAcetam 500 MG TAB PO SCH ×2 (10:57→22:34)
[2020-06-02] MEDS: LISINOPRIL 20 MG TAB PO SCH (10:57)
[2020-06-02] MEDS: amLODIPine 10 MG TAB PO SCH (10:58)
[2020-06-02] MEDS: DEXAMETHASONE 4 MG TAB PO SCH (10:58)
[2020-06-02] MEDS ORDERED: FUROSEMIDE 40 MG/4 ML INJ IV ONE (11:00)
--- NOTE | 2020-06-02 12:12 | Progress Note ---
Assessment and Plan Cultures: Coronavirus PCR: Positive 05/28/2020 blood culture: no growth 05/28/2020 tracheal aspirate: Usual respiratory bobo 05/28/2020 urine culture: No growth A/P: 64-year-old female with hypertension, diastolic CHF, pulmonary hypertension, diabetes, obesity hypoventilation syndrome was admitted to the emergency room after she called EMS due to difficulty breathing. On the way to the hospital, patient developed cardiac arrest and was treated as per ACLS protocol: #Bilateral pneumonia: Secondary to COVID-19. #Acute hypoxic respiratory failure: On mechanical ventilation. #Status post PEA arrest. #Mild LFT elevation: likely from COVID-19. #Mild AVANI Recs: IV/PO Dexamethasone 6 mg daily x 10 days, day 5 IV Remdesivir Day 5 of 5 prophylactic anticoagulation based on d-dimer per protocol trend ferritin, LDH, d-dimer, CRP every 2-3 days for risk stratification and to assess disease progression Mallory Wright MD, FACP [facility] ([facility] C: [phone] O: [phone] F: [phone] Subjective Date of service: 06/02/20 Principal diagnosis: Ac hypoxemic resp failure; COVID-19; pneumonia; CHF; Pulm HTN; OHS; DM II Interval history: No fever. Remains intubated, on the vent. Objective - Exam Narrative Exam: Physical Exam (reviewed in chart due to PPE conservation) Constitutional: intubated, sedated, on the vent Head, Ears, Nose: normocephalic, atraumatic Eyes: limited due to PPE conservation strategy Neck: intubated Oral: intubated Cardiovascular: limited due to PPE conservation strategy Respiratory: limited due to PPE conservation strategy GI: limited due to PPE conservation strategy Musculoskeletal: limited due to PPE conservation strategy Skin: limited due to PPE conservation strategy Hem/Lymphatic: limited due to PPE conservation strategy Psych: no agitation Neurological: sedated, intubated, on the vent, exam limited - Constitutional Vitals: Vital Signs Temp Pulse Resp BP Pulse Ox 98.4 F 62 11 L 109/49 98 06/02/20 08:00 06/02/20 11:44 06/02/20 11:41 06/02/20 11:44 06/02/20 11:44 Temperature -Last 24 Hours Temperature 98.4 F Temperature 99.4 F Temperature 98.9 F Temperature 99.5 F Temperature 98.4 F - Labs CBC & Chem 7: 06/02/20 04:20 05/31/20 13:03 Labs: Abnormal lab results 06/01/20 06/01/20 06/02/20 Range/Units 12:28 17:29 00:08 Hgb (10.1-14.3) gm/dl Heparin Anti-Xa Level (0.3-0.7) U.I./ml ABG pO2 (80.0-90.0) mm Hg ABG Base Excess (-2.0-3.0) mmol/L ABG Hemoglobin (12.0-16.0) gm/dl POC Glucose 199 H 209 H 162 H (70-105) 06/02/20 06/02/20 06/02/20 Range/Units 04:20 04:20 04:44 Hgb 10.0 L (10.1-14.3) gm/dl Heparin Anti-Xa Level 0.10 L (0.3-0.7) U.I./ml ABG pO2 150.6 H (80.0-90.0) mm Hg ABG Base Excess -4.1 L (-2.0-3.0) mmol/L ABG Hemoglobin 11.8 L (12.0-16.0) gm/dl POC Glucose (70-105) 06/02/20 Range/Units 05:53 Hgb (10.1-14.3) gm/dl Heparin Anti-Xa Level (0.3-0.7) U.I./ml ABG pO2 (80.0-90.0) mm Hg ABG Base Excess (-2.0-3.0) mmol/L ABG Hemoglobin (12.0-16.0) gm/dl POC Glucose 149 H (70-105)
--- NOTE | 2020-06-02 12:35 | Progress Note ---
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 Well-preserved left ventricular systolic function. Conservative cardiac management. Subjective Date of service: 06/02/20 Principal diagnosis: Ac hypoxemic resp failure; COVID-19; pneumonia; CHF; Pulm HTN; OHS; DM II Interval history: Sinus rhythm on color television console monitor. No cardiac events reported. Objective Vital Signs Temp Pulse Pulse Resp BP Pulse Ox 06/02/20 11:44 62 109/49 98 06/02/20 11:41 63 11 L 115/54 98 06/02/20 11:30 64 11 L 115/54 96 06/02/20 11:21 65 11 L 119/61 96 06/02/20 11:11 68 11 L 134/72 96 06/02/20 11:01 71 10 L 134/72 93 06/02/20 10:58 71 168/73 06/02/20 10:57 71 168/73 06/02/20 10:51 73 12 168/73 94 06/02/20 10:41 79 12 176/74 90 06/02/20 10:30 74 24 176/74 95 06/02/20 10:21 72 24 163/69 96 06/02/20 10:11 73 24 169/72 98 06/02/20 10:00 80 24 171/79 95 06/02/20 09:50 74 24 169/72 97 06/02/20 09:41 73 24 226/96 97 06/02/20 09:31 75 24 218/79 97 06/02/20 09:21 74 24 226/96 99 06/02/20 09:11 75 24 211/89 99 06/02/20 09:07 74 230/100 99 06/02/20 09:00 77 24 230/100 97 06/02/20 08:51 77 24 203/83 99 06/02/20 08:41 79 24 203/ 99 06/02/20 08:30 81 24 211/89 97 06/02/20 08:21 81 24 / 99 06/02/20 08:11 77 24 / 99 06/02/20 08:00 98.4 F 78 77 24 / 97 06/02/20 07:51 80 22 240/105 99 06/02/20 07:42 78 240/105 06/02/20 07:41 74 24 240/105 99 06/02/20 07:31 78 24 240/105 97 06/02/20 07:21 75 24 233/98 99 06/02/20 07:11 75 24 233/98 99 06/02/20 07:01 75 24 233/98 97 06/02/20 06:51 75 24 231/115 99 06/02/20 06:41 89 16 231/115 99 06/02/20 06:30 89 24 231/115 97 06/02/20 06:21 87 24 211/97 99 06/02/20 06:11 88 24 211/97 99 06/02/20 06:01 84 25 H 211/97 96 06/02/20 05:51 78 22 189/79 99 06/02/20 05:48 74 189/79 06/02/20 05:41 71 24 189/79 99 06/02/20 05:31 70 24 189/79 97 06/02/20 05:21 72 24 231/96 99 06/02/20 05:18 73 84 24 99 06/02/20 05:11 73 24 231/96 99 06/02/20 05:01 74 24 210/85 97 06/02/20 04:51 76 24 215/94 99 06/02/20 04:41 82 24 215/94 99 06/02/20 04:31 78 24 231/96 97 06/02/20 04:21 76 25 H 215/94 100 06/02/20 04:11 73 24 215/94 99 06/02/20 04:00 99.4 F 74 84 24 215/94 97 06/02/20 03:51 77 24 207/90 99 06/02/20 03:41 77 25 H 207/90 99 06/02/20 03:33 74 84 24 99 06/02/20 03:30 74 24 207/90 96 06/02/20 03:21 70 24 195/83 99 06/02/20 03:11 70 24 195/83 99 06/02/20 03:01 73 24 195/83 96 06/02/20 02:51 78 19 220/89 98 06/02/20 02:41 73 24 220/89 99 06/02/20 02:31 74 24 220/89 97 06/02/20 02:21 78 24 208/84 99 06/02/20 02:11 74 24 208/84 99 06/02/20 02:01 74 24 208/84 96 06/02/20 01:51 75 24 216/97 99 06/02/20 01:41 75 24 216/97 99 06/02/20 01:30 82 19 216/97 96 06/02/20 01:21 79 24 214/85 99 06/02/20 01:10 78 24 214/85 96 06/02/20 01:01 77 24 220/91 99 06/02/20 00:51 84 23 220/ 100 06/02/20 00:49 86 200/90 06/02/20 00:41 88 20 220/ 99 06/02/20 00:31 82 24 220/ 100 06/02/20 00:21 85 24 220/ 99 06/02/20 00:11 82 24 220/ 99 06/02/20 00:01 85 24 220/ 99 06/02/20 00:00 98.9 F 06/01/20 23:51 83 24 220/ 100 06/01/20 23:41 86 24 220/ 100 06/01/20 23:35 85 84 24 99 06/01/20 23:31 85 24 220/ 97 06/01/20 23:21 92 H 24 213/92 99 06/01/20 23:11 89 24 105/86 99 06/01/20 23:01 95 H 18 105/86 99 06/01/20 22:51 95 H 18 206/94 99 06/01/20 22:41 89 24 197/85 99 06/01/20 22:38 97 H 187/85 06/01/20 22:35 93 H 197/85 06/01/20 22:31 97 H 24 197/85 96 06/01/20 22:21 96 H 24 191/100 99 06/01/20 22:11 93 H 24 194/85 99 06/01/20 22:01 95 H 24 194/85 96 06/01/20 21:51 103 H 21 218/96 99 06/01/20 21:41 105 H 19 205/95 99 06/01/20 21:38 105 H 205/95 100 06/01/20 21:31 101 H 18 205/95 96 06/01/20 21:21 117 H 17 147/63 99 06/01/20 21:11 114 H 22 185/90 99 06/01/20 21:01 115 H 12 137/58 97 06/01/20 20:51 118 H 14 137/58 98 06/01/20 20:41 105 H 22 147/63 99 06/01/20 20:31 81 24 147/63 98 06/01/20 20:21 81 24 163/72 100 06/01/20 20:11 84 23 163/72 100 06/01/20 20:00 99.5 F 83 25 H 138/60 100 06/01/20 19:51 80 24 122/56 100 06/01/20 19:41 81 24 122/56 100 06/01/20 19:30 81 24 122/56 97 06/01/20 19:21 84 24 120/56 99 06/01/20 19:11 87 24 177/87 99 06/01/20 19:04 95 H 06/01/20 19:01 105 H 24 177/87 06/01/20 18:51 96 H 24 176/76 06/01/20 18:41 92 H 24 176/76 06/01/20 18:31 93 H 24 176/76 06/01/20 18:21 90 24 206/95 06/01/20 18:11 92 H 24 206/95 98 06/01/20 18:01 97 H 24 206/95 100 06/01/20 17:51 96 H 22 163/78 99 06/01/20 17:46 92 H 163/78 100 06/01/20 17:41 93 H 24 163/78 100 06/01/20 17:30 84 24 163/78 97 06/01/20 17:21 87 25 H 177/78 99 06/01/20 17:11 87 24 139/69 99 06/01/20 17:01 87 24 139/69 98 06/01/20 16:51 93 H 24 164/76 99 06/01/20 16:41 105 H 15 177/78 100 06/01/20 16:33 103 H 177/78 06/01/20 16:31 93 H 24 177/78 96 06/01/20 16:21 88 24 164/76 99 06/01/20 16:11 90 24 164/76 99 06/01/20 16:01 106 H 16 145/67 98 06/01/20 16:00 98.4 F 95 H 95 H 24 99 06/01/20 15:51 100 H 24 145/67 99 06/01/20 15:41 98 H 15 168/77 99 06/01/20 15:30 97 H 24 168/77 96 06/01/20 15:21 108 H 24 145/67 99 06/01/20 15:11 97 H 24 145/67 99 06/01/20 15:00 94 H 24 145/67 96 06/01/20 14:52 99 H 121/61 100 06/01/20 14:51 109 H 24 165/85 99 06/01/20 14:41 100 H 23 165/85 99 06/01/20 14:31 90 24 121/61 96 06/01/20 14:21 97 H 24 111/53 98 06/01/20 14:11 111 H 20 111/53 99 06/01/20 14:01 111 H 18 165/85 97 06/01/20 13:51 115 H 12 128/64 99 06/01/20 13:41 114 H 14 128/64 98 06/01/20 13:30 92 H 24 128/64 98 06/01/20 13:21 111 H 16 128/64 99 06/01/20 13:11 120 H 14 128/64 99 06/01/20 13:01 119 H 12 128/64 97 06/01/20 12:51 112 H 24 195/81 98 06/01/20 12:41 119 H 15 195/81 99 - Physical Examination Narrative exam: Deferred due to coronavirus isolation protocol. - Labs and Meds CBC 06/02/20 Range/Units 04:20 Hgb 10.0 L (10.1-14.3) gm/dl Hct 30.3 (30.3-42.9) % Plt Count 266 (140-440) K/mm3 - Allied health notes Allied health notes reviewed: RT (Pulmoanry edema with bilateral pleural effusions)
--- NOTE | 2020-06-02 18:05 | Progress Note ---
Assessment and Plan Assessment and plan: 64 YO Female with a medical history of HTN, Diastolic CHF, Pulmonary HTN, DM, Obesity Hypoventilation Syndrome presents to ED for evaluation of shortness of breath. Patients history taken from EMS staff, ED staff. As per staff, the EMS was notified for difficulty breathing. Upon arrival to the patient's home the patient was found to be in distress and was subsequently transported to [facility] for further evaluation and care. In route to [facility] the patient developed cardiac arrest and was treated in accordance with ACLS protocol with return of ROSC Patient was seen and evaluated in the emergency department and was found to have acute hypoxemic respiratory failure status post cardiac arrest. Patient was intubated and placed on ventilatory support. Patient admitted to ICU due to increased risk of decompensation. Critical care team consulted in ED. She was found to have COVID-19 iinfection and was started on steroids and remdesivir. ID was consulted. Cardiology was consulted for her systolic heart failure and cardiac arrest. 06/01. Patient remains intubated and on ventilatory support today. Patient has multiple organ system failure and has poor prognosis. Patient did not experience significant medical decompensation overnight but no improvement with current therapy. 06/02. Remains intubated. her BP is elevated. Started on nicardipine drip. Cardiology following. Patient Problems (1) Acute hypoxemic respiratory failure Current Visit: Yes Status: Acute Plan to address problem: From COVID-19 viral infection Patient intubated, sedated and on ventilatory support. Critical care team consulted. The high probability of a clinically significant, sudden or life threatening deterioration of the [pulmonary, renal, cardiac, neuro] system(s) required my full and direct attention, intervention and personal management. The aggregate critical care time was [90] minutes. This time is in addition to time spent performing reported procedures but includes the following: [x] Data Review and interpretation [x] Patient assessment and monitoring of vital signs [x] Documentation [x] Medication orders and management (2) Cardiac arrest Current Visit: Yes Status: Acute Plan to address problem: Cardiology team on board Conservative management as per cardiology (3) Metabolic acidosis Current Visit: Yes Status: Acute Plan to address problem: Monitor (4) Coronavirus infection Current Visit: Yes Status: Acute Plan to address problem: On remdesivir and dexamethasone ID recs appreciated. Maintained on ventilator (5) CHF (congestive heart failure) Current Visit: Yes Status: Acute Qualifiers: Heart failure type: systolic Heart failure chronicity: acute Qualified Code(s): I50.21 - Acute systolic (congestive) heart failure Plan to address problem: Cardiology following. (6) Coffee ground emesis -likely upper GI bleed Possible stress ulcers Start PPI BID Hold heparin for now GI consult tomorrow morning Maintain n.p.o. for now. Monitor H&H and trend. (7) DVT prophylaxis Current Visit: Yes Status: Acute Plan to address problem: SCD to bilateral lower extremities while in bed Hold AC for now due to possible GI bleed (8) Advance care planning Current Visit: Yes Status: Acute Plan to address problem: Disease education conducted, prognosis discussed, +30 minutes. Patient is full code. Hospitalist Physical -Resume home anti-hypertensives -IV Lasix 40mg x1 today, BMP in the morning -Add Clonidine to therapy to help with agitation and hypertension -wean Cardene infusion for SBP<150 -Continue with Helm catheter in this critically ill patient with renal impairment and on mechanical ventilatory support -SAT and SBT today as tolerated History Interval history: See assessment and plan Hospitalist Physical - Constitutional Vitals: Temp Pulse Resp BP Pulse Ox 98 F 56 L 11 L 99/55 99 06/02/20 15:38 06/02/20 17:13 06/02/20 15:41 06/02/20 17:13 06/02/20 17:13 General appearance: Present: no acute distress, obese, other (intubated on the vent) - EENT Eyes: Present: PERRL - Respiratory Respiratory: bilateral: diminished - Cardiovascular Heart Sounds: Present: S1 & S2 - Extremities Extremities: No edema - Abdominal General gastrointestinal: soft, non-distended, normal bowel sounds (Sedated and intubated) Results - Labs CBC & Chem 7: 06/02/20 04:20 05/31/20 13:03 Labs: Laboratory Last Values WBC 9.1 K/mm3 (4.5-11.0) 05/29/20 04:43 RBC 3.48 M/mm3 (3.65-5.03) L 05/29/20 04:43 Hgb 10.0 gm/dl (10.1-14.3) L 06/02/20 04:20 Hct 30.3 % (30.3-42.9) 06/02/20 04:20 MCV 85 fl (79-97) 05/29/20 04:43 MCH 28 pg (28-32) 05/29/20 04:43 MCHC 33 % (30-34) 05/29/20 04:43 RDW 16.0 % (13.2-15.2) H 05/29/20 04:43 Plt Count 266 K/mm3 (140-440) 06/02/20 04:20 Lymph % (Auto) 7.4 % (13.4-35.0) L 05/29/20 04:43 [place] % (Auto) 3.3 % (0.0-7.3) 05/29/20 04:43 Eos % (Auto) 0.0 % (0.0-4.3) 05/29/20 04:43 Baso % (Auto) 0.2 % (0.0-1.8) 05/29/20 04:43 Lymph # 0.7 K/mm3 (1.2-5.4) L 05/29/20 04:43 [place] # 0.3 K/mm3 (0.0-0.8) 05/29/20 04:43 Eos # 0.0 K/mm3 (0.0-0.4) 05/29/20 04:43 Baso # 0.0 K/mm3 (0.0-0.1) 05/29/20 04:43 Seg Neutrophils % 89.1 % (40.0-70.0) H 05/29/20 04:43 Seg Neutrophils # 8.1 K/mm3 (1.8-7.7) H 05/29/20 04:43 PT 14.2 Sec. (12.2-14.9) 05/29/20 15:10 INR 1.08 (0.87-1.13) 05/29/20 15:10 APTT 27.2 Sec. (24.2-36.6) 05/29/20 15:10 D-Dimer 769.68 ng/mlDDU (0-234) H 06/02/20 13:49 Heparin Anti-Xa Level 0.28 U.I./ml (0.3-0.7) L 06/02/20 13:49 ABG pH 7.383 pH Units (7.350-7.450) 06/02/20 04:44 ABG pCO2 34.8 mm Hg 06/02/20 04:44 ABG pO2 150.6 mm Hg (80.0-90.0) H 06/02/20 04:44 ABG HCO3 20.3 mmol/L (20.0-26.0) 06/02/20 04:44 ABG O2 Saturation 98.9 % (95.0-99.0) 06/02/20 04:44 ABG O2 Content 16.3 (0.0-44) 06/02/20 04:44 ABG Base Excess -4.1 mmol/L (-2.0-3.0) L 06/02/20 04:44 ABG Hemoglobin 11.8 gm/dl (12.0-16.0) L 06/02/20 04:44 ABG Carboxyhemoglobin 1.1 % (0.0-5.0) 06/02/20 04:44 ABG Methemoglobin 0.7 % (0.0-1.5) 06/02/20 04:44 VBG pH 7.152 (7.320-7.420) L* 05/28/20 13:47 Oxyhemoglobin 97.1 % (95.0-99.0) 06/02/20 04:44 FiO2 40 % 06/02/20 04:44 Sodium 140 mmol/L (137-145) 05/31/20 13:03 Potassium 4.3 mmol/L (3.6-5.0) 05/31/20 13:03 Chloride 106.0 mmol/L (98-107) 05/31/20 13:03 Carbon Dioxide 18 mmol/L (22-30) L 05/31/20 13:03 Anion Gap 20 mmol/L 05/31/20 13:03 BUN 48 mg/dL (7-17) H 05/31/20 13:03 Creatinine 1.6 mg/dL (0.6-1.2) H 05/31/20 13:03 Estimated GFR 33 ml/min 05/31/20 13:03 BUN/Creatinine Ratio 30 % 05/31/20 13:03 Glucose 115 mg/dL (65-100) H 05/31/20 13:03 POC Glucose 220 (70-105) H 06/02/20 12:04 Lactic Acid 1.90 mmol/L (0.7-2.0) 05/28/20 14:46 Calcium 8.3 mg/dL (8.4-10.2) L 05/31/20 13:03 Ferritin 179.4 ng/mL (10.0-200.0) 05/28/20 15:33 Total Bilirubin < 0.20 mg/dL (0.1-1.2) 05/31/20 13:03 AST 15 units/L (5-40) 05/31/20 13:03 ALT 18 units/L (7-56) 05/31/20 13:03 Alkaline Phosphatase 107 units/L (35-129) 05/31/20 13:03 Lactate Dehydrogenase 365 units/L (91-180) H 05/28/20 15:33 Total Creatine Kinase 301 units/L (30-135) H 05/28/20 13:47 CK-MB (CK-2) 4.3 ng/mL (0.0-4.0) H 05/28/20 13:47 CK-MB (CK-2) Rel Index 1.4 (0-4) 05/28/20 13:47 C-Reactive Protein 0.20 mg/dL (0.00-1.30) 05/28/20 15:33 Total Protein 5.4 g/dL (6.3-8.2) L 05/31/20 13:03 Albumin 2.4 g/dL (3.9-5) L 05/31/20 13:03 Albumin/Globulin Ratio 0.8 % 05/31/20 13:03 Procalcitonin < 0.05 ng/mL (<0.15) 05/28/20 15:33 Urine Color Yellow (Yellow) 05/28/20 16:30 Urine Turbidity Slightly-cloudy (Clear) 05/28/20 16:30 Urine pH 6.0 (5.0-7.0) 05/28/20 16:30 Ur Specific [place] 1.018 (1.003-1.030) 05/28/20 16:30 Urine Protein >500 mg/dL (Negative) 05/28/20 16:30 Urine Glucose (UA) >=500 mg/dL (Negative) 05/28/20 16:30 Urine Ketones Neg mg/dL (Negative) 05/28/20 16:30 Urine Blood Neg (Negative) 05/28/20 16:30 Urine Nitrite Neg (Negative) 05/28/20 16:30 Urine Bilirubin Neg (Negative) 05/28/20 16:30 Urine Urobilinogen < 2.0 mg/dL (<2.0) 05/28/20 16:30 Ur Leukocyte Esterase Neg (Negative) 05/28/20 16:30 Urine WBC (Auto) 17.0 /HPF (0.0-6.0) H 05/28/20 16:30 Urine RBC (Auto) 22.0 /HPF (0.0-6.0) 05/28/20 16:30 U Epithel Cells (Auto) 2.0 /HPF (0-13.0) 05/28/20 16:30 Urine Bacteria (Auto) 2+ /HPF (Negative) 05/28/20 16:30 Urine Mucus Few /HPF 05/28/20 16:30 Urine Yeast (Budding) 1+ /HPF 05/28/20 16:30 Coronavirus (PCR) Positive (Negative) A 05/28/20 Unknown Microbiology: Microbiology 05/28/20 15:33 Peripheral/Venous Blood Culture - Final NO GROWTH AFTER 5 DAYS 05/28/20 15:40 Peripheral/Venous Blood Culture - Final NO GROWTH AFTER 5 DAYS - Diagnostic Impressions Diagnostic Impressions: Echocardiogram Limited Views 05/29/20 13:52 Transthoracic Echocardiogram Indication: Pulm Embolus BP: 169/76 HR: 85 Conclusions *Limited study for RV size post cardiopulmonar arrest. *RV is only slightly dilated, no significant difference from prior echo 05/13/2020. *Global left ventricular systolic function is at the lower limits of normal. *The estimated ejection fraction is 45-50%. *Mild to moderate concentric left ventricular hypertrophy is observed. *The left and right atria are both mild to moderately dilated. Findings Left Ventricle: The left ventricular chamber size is mildly dilated. Mild to moderate concentric left ventricular hypertrophy is observed. Global left ventricular systolic function is at the lower limits of normal. The estimated ejection fraction is 45-50%. Left Atrium: The left atrium is mild to moderately dilated. Right Ventricle: The right ventricle is slightly dilated. Right Atrium: The right atrium is mild to moderately dilated. Aortic Valve: The aortic valve leaflets are moderately thickened. Mitral Valve: There is mitral annular calcification. The mitral valve leaflets are moderately thickened. Tricuspid Valve: The tricuspid valve leaflets are mildly thickened. Pericardium: A trivial pericardial effusion is visualized. NDUM: 05/29/20 1808 Amended Report Transthoracic Echocardiogram Indication: Pulm Embolus BP: 169/76 HR: 85 Conclusions *Limited study for RV size post cardiopulmonary arrest. *RV is only slightly dilated, no significant difference from prior echo 05/13/2020. *Global left ventricular systolic function is at the lower limits of normal. *The estimated ejection fraction is 45-50%. *Mild to moderate concentric left ventricular hypertrophy is observed. *The left and right atria are both mild to moderately dilated. Findings Left Ventricle: The left ventricular chamber size is mildly dilated. Mild to moderate concentric left ventricular hypertrophy is observed. Global left ventricular systolic function is at the lower limits of normal. The estimated ejection fraction is 45-50%. Left Atrium: The left atrium is mild to moderately dilated. Right Ventricle: The right ventricle is slightly dilated. Right Atrium: The right atrium is mild to moderately dilated. Aortic Valve: The aortic valve leaflets are moderately thickened. Mitral Valve: There is mitral annular calcification. The mitral valve leaflets are moderately thickened. Tricuspid Valve: The tricuspid valve leaflets are mildly thickened. Pericardium: A trivial pericardial effusion is visualized. Helm/IV: Voiding Method Indwelling Catheter IV Catheter Type [Right Peripheral IV Forearm] IV Catheter Type [Left Leg] Intra-osseous Active Medications - Current Medications Current Medications: Generic Name Dose Route Start Last Admin Trade Name Freq PRN Reason Stop Dose Admin Amlodipine Besylate 10 mg 06/02/20 11:00 06/02/20 10:58 Amlodipine PO 10 mg DAILY NELSON Administration Lipase/Protease/Amylase 1 each 05/29/20 13:39 Pancremu Lawson 10,500 Unit FEEDTUBE PRN PRN For Clogged Feeding Tube Carvedilol 6.25 mg 06/02/20 11:00 06/02/20 10:57 Coreg PO 6.25 mg BID NELSON Administration Clonidine HCl 0.3 mg 06/02/20 11:00 06/02/20 10:57 Catapres PO 0.3 mg BID NELSON Administration Dexamethasone 6 mg 05/29/20 15:00 06/02/20 10:58 Decadron PO 06/07/20 10:01 6 mg DAILY NELSON Administration Famotidine 20 mg 06/01/20 10:00 06/02/20 10:56 Pepcid PO 20 mg BID NELSON Administration Fentanyl 50 mcg 05/29/20 14:21 Sublimaze IV Q10MIN PRN ANALGESIA Hydrophilic Ointment 1 applic 05/28/20 13:49 Vaseline Lip Therapy TP Q2HR PRN Dry Lips Heparin Sodium/Sodium Chloride 25,000 unit in 500 mls @ 30 mls/hr 05/29/20 15:00 06/02/20 14:50 Heparin/ 0.45% Nacl-25,000 Unit/500 Ml IV 1,450 units/hr TITR NELSON 29 mls/hr Titration Protocol 1,500 UNITS/HR Fentanyl Citrate 2,000 mcg in 100 mls @ 6.095 mls/hr 05/29/20 15:00 06/02/20 16:34 Fentanyl Drip Premix IV 1 mcg/kg/hr TITR NELSON 6.095 mls/hr Titration Protocol 1 MCG/KG/HR REMDESIVIR 100 mg/ Sodium 250 mls @ 500 mls/hr 05/30/20 21:00 06/01/20 22:36 Chloride IV 06/02/20 21:29 500 mls/hr Q24HR@2100 NELSON Administration Nicardipine HCl 50 mg/ Sodium 250 mls @ 25 mls/hr 06/02/20 09:00 06/02/20 11:23 Chloride IV 0 mg/hr TITR NELSON 0 mls/hr Titration Protocol 5 MG/HR Insulin Human Lispro 0 unit 05/29/20 18:00 06/02/20 11:51 Humalog SUB-Q 4 unit Q6H NELSON Administration Protocol Labetalol HCl 20 mg 06/02/20 00:08 06/02/20 05:48 Labetalol IV 20 mg Q6H PRN Administration HYPERTENSION Levetiracetam 500 mg 05/29/20 22:00 06/02/20 10:57 Keppra PO 500 mg BID NELSON Administration Lisinopril 20 mg 05/31/20 12:00 06/02/20 10:57 Zestril PO 20 mg BID NELSON Administration Multi-Ingred Cream/Lotion/Oil/Oint 1 applic 05/28/20 13:49 Artificial Tears Ophth Oint OU Q4HR PRN Dry Eye(s) Ondansetron HCl 4 mg 06/02/20 09:00 Zofran IV Q8H PRN Nausea And Vomiting Simple Syrup 15 ml 05/29/20 13:39 Simple Syrup FEEDTUBE PRN PRN Hypoglycemia Simple Syrup 30 ml 05/29/20 13:39 Simple Syrup FEEDTUBE PRN PRN Hypoglycemia Sodium Bicarbonate 325 mg 05/29/20 13:39 Sodium Bicarbonate FEEDTUBE PRN PRN For Clogged Feeding Tube Sodium Chloride 10 ml 05/28/20 22:00 06/02/20 10:58 Sodium Chloride Flush Syringe 10 Ml IV 10 ml BID NELSON Administration Sodium Chloride 10 ml 05/28/20 19:08 Sodium Chloride Flush Syringe 10 Ml IV PRN PRN LINE FLUSH Sodium Chloride 50 ml 05/29/20 17:30 06/01/20 22:37 Nacl 0.9% IV 06/02/20 21:31 50 ml 2130 NELSON Administration Nutrition/Malnutrition Assess - Dietary Evaluation Nutrition/Malnutrition Findings: Nutrition Notes Start: 05/29/20 11:45 Freq: Status: Active Protocol: Document 06/01/20 09:57 JOSEF (Rec: 06/01/20 10:02 JOSEF [id number] [id number]) Nutrition Notes Initial or Follow up Reassessment Current Diagnosis Heart Failure,Respiratory Failure Other Pertinent Diagnosis s/p Cardiac Arrest, Metabolic Encephalopathy, COVID-19 (+) Current Diet TF - Nepro at 40ml/hr Labs/Tests Reviewed Pertinent Medications Lasix Height 5 ft 6 in Weight 123 kg [place] Body Weight (kg) 59.09 BMI 43.7 Weight Status Morbidly Obese Subjective/Other Information Per RN, pt tolerating TF at goal rate. Pt remains on vent support. Burn Absent Trauma Absent #1 Nutrition Diagnosis Inadequate oral intake Diagnosis Progress(for reassessment Continues documentation) Is patient on ventilator? Yes Is Patient Ambulatory and/or Out of Bed No REE-([facility] [place]-confined to bed) [phone] Additional Notes Pro needs up to 2.5g/kg IBW: up to 148g/day Fluid needs 1ml/kcal Nutrition Intervention Nutrition Support: Continue Nepro at 40ml/hr Flush with 175ml q4h Kcal 1,728 Protein (gm) 78 Fluid (mL) 698 Goal #1 TF tolerance Goal #2 TF to meet at least 75% energy and pro needs Follow-Up By: 06/08/20 Additional Comments F/U: stable TF, vent status, wt
[2020-06-02] MEDS: PANTOPRAZOLE 40 MG INJ IV SCH (21:34)
[2020-06-02] MEDS: SODIUM CHLORIDE 0.9% 50 ML IVPB IV SCH (21:35)
[2020-06-02] MEDS: REMDESIVIR 100 MG in SODIUM CHLORIDE 0.9% 250ML 250 ML IV SCH (21:35)
[2020-06-03] MEDS: LISINOPRIL 20 MG TAB PO SCH (00:04)
[2020-06-03] MEDS: INSULIN LISPRO 100 UNIT/ML VIAL 3 mL SUB-Q SCH ×4 (00:55→18:14)
--- NOTE | 2020-06-03 02:00 | Cat Scan Report ---
Examination: CT of the head without contrast Clinical information: Altered mental status Comparison: CT of the head, 05/30/2020. Technical: Multiple axial CT images of the head were obtained without intravenous contrast. Sagittal and coronal reformats were obtained. All CTs at this facility utilize dose reduction techniques inc luding automated exposure control, iterative reconstruction and weight based dosing when appropriate to reduce patient radiation dose to as low as reasonable achievable. Findings: There is no CT evidence of acute intracranial hemorrhage or large territorial infarct. The ventricular system remains normal in size. No extra-axial fluid collection is identified. Evaluation of the calvarium demonstrates no evidence of acute bony abnormality. There is mild mucosal thickening of the sphenoid sinus. Impression: 1. No CT evidence of acute intracranial process. No evidence of significant interval change from the recent previous study. Signer Name: Jasmina Woo MD Signed: 06/03/2020 1:55 AM Workstation Name: [id number]
--- NOTE | 2020-06-03 03:15 | XRay Report ---
CHEST 1 VIEW, 06/03/2020 2:44 AM CLINICAL INFORMATION/INDICATION: Respiratory failure COMPARISON: Chest radiograph, 06/02/2020 at 2:23 AM FINDINGS: SUPPORT DEVICES: The endotracheal tube and esophagogastric tube projects in stable position. HEART: There is stable enlargement of the cardiac silhouette. LUNGS/PLEURA: There has been interval improvement of pulmonary edema since the previous study. Faint bibasilar pleuroparenchymal opacities are unchanged. ADDITIONAL FINDINGS: No additional acute findings. IMPRESSION: 1. Interval improvement of bilateral pulmonary edema. 2. Stable faint bibasilar pleuroparenchymal opacities. Signer Name: Jasmina Woo MD Signed: 06/03/2020 3:10 AM Workstation Name: [id number]
[2020-06-03 06:14] LABS: ABG Base Excess -4.9 mmol/L (-2.0-3.0); ABG HCO3 19.4 mmol/L (20.0-26.0); ABG Methemoglobin 0.5 % (0.0-1.5); ABG PCO2 32.3 mm Hg; ABG PH 7.397 pH Units (7.350-7.450); ABG PO2 160.9 mm Hg (80.0-90.0)
[2020-06-03 06:50] LABS: Hematocrit 34.5 % (30.3-42.9); Hemoglobin 11.2 gm/dl (10.1-14.3); Mean Corpuscular HGB Conc 33 % (30-34); Mean Corpuscular Volume 86 fl (79-97); Platelet Count 237 K/mm3 (140-440); Red Blood Count 4.02 M/mm3 (3.65-5.03); Red Cell Distribution Width 16.4 % (13.2-15.2)
[2020-06-03 06:51] LABS: Alanine Aminotransferase 18 units/L (7-56); Albumin 2.2 g/dL (3.9-5); BUN/Creatinine Ratio 33; Blood Urea Nitrogen 65 mg/dL (7-17); Hemolysis Index 18
--- NOTE | 2020-06-03 08:23 | Progress Note ---
Assessment and Plan Acute hypoxemic respiratory failure orally intubated on MVS Severe COVID infection Multifocal pneumonia Morbid obesity Acute toxic metabolic encephalopathy AVANI secondary to COVID/vasomotor nephropathy Bilateral pulmonary edema. Bilateral pleural effusions. History of congestive heart failure. Morbid obesity. History of pulmonary hypertension. History of hypertension. Diabetes. Obesity hypoventilation syndrome. Elevated serum inflammatory markers to include D-dimers and LDH levels. Hyperkalemia at presentation. Metabolic acidosis. Oropharyngeal dysphagia. -Continue with home anti-hypertensives -Change Famotidine to Pantoprazole, resume heparin- patient's hemoglobin and hemodynamics are within normal range -Get venous dopplers to r/o DVT. This will help with management decisions on continuation of therapeutic heparin. Her d-dimer levels are stable -Increase Clonidine dosing to therapy to help with agitation and hypertension -Remove Helm catheter -SAT and SBT today as tolerated - VAP bundle addressed -Aspiration precautions, HOB >40 - continue lung protective strategies-ARDS. net -Permissive hypercapnic is acceptable -CXR, ABG in am - continue bronchodilators with pulmonary hygiene per RT - wean per pulmonary driven protocols otherwise - continue to avoid benzodiazepines, reduce the possibility of delirium - prn analgesia per CPOT score - sedation prn for target RASS 0 to -1 - Continue to wean supplemental oxygen for target O2 sats > 92% - conservative fluid management measures as tolerated by hemodynamics and renal function - Bronchodilators with pulmonary hygiene per RT -Monitor off antibiotics - Accuchecks with glycemic control per SSI (While critically ill target blood glucose of 140-180 mg/dL; avoid hypoglycemia) - Maintenance of sleep-wake cycle, avoid delirium - Avoid nephrotoxins, closely monitor renal function, dose all medications for renal function - Aspiration precautions, HOB >40 - Stress ulcer prophylaxis -Famotidine - VTE prophylaxis on adjust based on D-dimer levels - Mobility protocol, off loading and skin assessment for pressure ulcer prev ention - Monitor hemodynamics closely - Supportive transfusions as indicated to keep HgB >7g/dL COVID SPECIFIC INTERVENTIONS -Airborne, contact isolation for COVID per facility protocols - Remdesivir- last dose today, monitor closely for toxicities -IV steroids-Dexamethasone -Trend d-dimer,and other inflammatory markers per facility protocol -Evaluate for Convalescent plasma therapy per facility protocol -Continue all supportive care Discussed with the ICU team-RT,RN, Life threatening condition- COVID 19 ARDS acute hypoxemic respiratory failure on MVS Mortality/Morbidity- High Complexity of medical decision making- High CONDITION: CRITICAL PROGNOSIS: GUARDED CODE STATUS: FULL CODE The high probability of a clinically significant, sudden or life-threatening deterioration of the [respiratory & neurology, renal ] system(s) required my full and direct attention, intervention and personal management. The aggregate critical care time was [35] minutes without overlap. Time includes spent on; [x] Data Review and interpretation [x] Patient assessment and monitoring of vital signs [x] Documentation [x] Medication orders and management Subjective Date of service: 06/03/20 Principal diagnosis: Ac hypoxemic resp failure; COVID-19; pneumonia; CHF; Pulm HTN; OHS; DM II Interval history: Patient is seen today for: Ac hypoxemic resp failure; Coronavirus-19 infection; pneumonia; Pulmonary edema; Bilateral pleural effusions; CHF; Morbid obesity; pulmonary hypertension; OHS; DM II Seen and examined at bedside; 24hour events reviewed; nursing and respiratory c are staff consulted; no adverse overnight events reported to me; resting peacefully in bed; remains on MVS; no emesis or overt aspiration; no high grade fevers, tolerating tube feeds at goal Off nicardipine infusion, but blood pressures remain elevated. On going agitation. Heparin on hold for questionable coffee ground emesis Has Helm catheter, on Fentanyl at 1mcg Had a CT head which was negative for acute intracranial pathology Objective Vital Signs - 12hr 06/02/20 06/02/20 06/02/20 20:30 20:41 20:51 Temperature Pulse Rate 55 L 65 71 Pulse Rate [ From Monitor] Respiratory 24 24 18 Rate Blood Pressure 110/51 110/51 158/74 O2 Sat by Pulse 90 94 94 Oximetry 06/02/20 06/02/20 06/02/20 21:00 21:11 21:21 Temperature Pulse Rate 69 68 74 Pulse Rate [ 74 From Monitor] Respiratory 24 24 24 Rate Blood Pressure 172/76 172/76 174/76 O2 Sat by Pulse 93 94 95 Oximetry 06/02/20 06/02/20 06/02/20 21:31 21:33 21:41 Temperature Pulse Rate 76 80 75 Pulse Rate [ From Monitor] Respiratory 24 24 Rate Blood Pressure 207/84 207/84 207/84 O2 Sat by Pulse 96 98 Oximetry 06/02/20 06/02/20 06/02/20 21:44 21:51 22:00 Temperature 97.4 F L Pulse Rate 78 78 Pulse Rate [ From Monitor] Respiratory 24 Rate Blood Pressure 188/83 188/83 O2 Sat by Pulse 98 98 Oximetry 06/02/20 06/02/20 06/02/20 22:11 22:21 22:30 Temperature Pulse Rate 73 71 72 Pulse Rate [ From Monitor] Respiratory 24 24 24 Rate Blood Pressure 185/74 165/75 173/75 O2 Sat by Pulse 97 98 96 Oximetry 06/02/20 06/02/20 06/02/20 22:41 22:51 23:00 Temperature Pulse Rate 74 73 76 Pulse Rate [ From Monitor] Respiratory 24 24 24 Rate Blood Pressure 173/75 178/75 187/84 O2 Sat by Pulse 98 98 97 Oximetry 06/02/20 06/02/20 06/02/20 23:11 23:21 23:30 Temperature Pulse Rate 71 70 70 Pulse Rate [ From Monitor] Respiratory 24 24 24 Rate Blood Pressure 187/84 171/72 184/81 O2 Sat by Pulse 98 98 96 Oximetry 06/02/20 06/02/20 06/02/20 23:39 23:41 23:44 Temperature Pulse Rate 72 72 70 Pulse Rate [ From Monitor] Respiratory 24 24 24 Rate Blood Pressure 184/81 184/81 184/81 O2 Sat by Pulse 98 99 98 Oximetry 06/02/20 06/02/20 06/03/20 23:51 23:57 00:00 Temperature 97.9 F Pulse Rate 69 67 71 Pulse Rate [ From Monitor] Respiratory 24 24 Rate Blood Pressure 184/75 184/75 189/83 O2 Sat by Pulse 98 98 96 Oximetry 06/03/20 06/03/20 06/03/20 00:04 00:11 00:18 Temperature Pulse Rate 90 79 79 Pulse Rate [ 74 From Monitor] Respiratory 24 74 H Rate Blood Pressure 189/83 189/83 O2 Sat by Pulse 99 98 Oximetry 06/03/20 06/03/20 06/03/20 00:21 00:30 00:41 Temperature Pulse Rate 72 76 68 Pulse Rate [ From Monitor] Respiratory 24 Rate Blood Pressure 198/80 202/88 202/88 O2 Sat by Pulse 98 98 98 Oximetry 06/03/20 06/03/20 06/03/20 01:23 01:25 01:31 Temperature Pulse Rate 93 H 78 74 Pulse Rate [ 74 From Monitor] Respiratory 18 74 H 24 Rate Blood Pressure O2 Sat by Pulse 99 98 99 Oximetry 06/03/20 06/03/20 06/03/20 01:41 01:51 02:01 Temperature Pulse Rate 78 70 69 Pulse Rate [ From Monitor] Respiratory 24 24 24 Rate Blood Pressure 184/83 184/83 O2 Sat by Pulse 99 99 96 Oximetry 06/03/20 06/03/20 06/03/20 02:11 02:21 02:31 Temperature Pulse Rate 69 68 77 Pulse Rate [ From Monitor] Respiratory 24 24 21 Rate Blood Pressure 184/83 184/83 184/83 O2 Sat by Pulse 96 96 96 Oximetry 06/03/20 06/03/20 06/03/20 02:41 02:51 03:00 Temperature Pulse Rate 73 68 68 Pulse Rate [ 74 From Monitor] Respiratory 24 24 74 H Rate Blood Pressure 184/83 184/83 O2 Sat by Pulse 97 99 98 Oximetry 06/03/20 06/03/20 06/03/20 03:01 03:11 03:21 Temperature Pulse Rate 63 64 64 Pulse Rate [ From Monitor] Respiratory 24 24 24 Rate Blood Pressure 184/83 184/83 184/83 O2 Sat by Pulse 96 98 96 Oximetry 06/03/20 06/03/20 06/03/20 03:31 03:41 03:51 Temperature Pulse Rate 63 62 64 Pulse Rate [ From Monitor] Respiratory 24 24 24 Rate Blood Pressure 184/83 184/83 184/83 O2 Sat by Pulse 97 99 99 Oximetry 06/03/20 06/03/20 06/03/20 04:00 04:01 04:11 Temperature 103.1 F H Pulse Rate 68 58 L 59 L Pulse Rate [ 68 From Monitor] Respiratory 68 H 24 24 Rate Blood Pressure 184/83 184/83 O2 Sat by Pulse 98 100 100 Oximetry 06/03/20 06/03/20 06/03/20 04:21 04:31 04:41 Temperature Pulse Rate 60 75 71 Pulse Rate [ From Monitor] Respiratory 23 Rate Blood Pressure 184/83 184/83 184/83 O2 Sat by Pulse 100 100 99 Oximetry 06/03/20 06/03/20 06/03/20 04:51 05:01 05:11 Temperature Pulse Rate 68 68 79 Pulse Rate [ From Monitor] Respiratory 24 22 Rate Blood Pressure 184/83 184/83 184/83 O2 Sat by Pulse 100 100 99 Oximetry 06/03/20 06/03/20 06/03/20 05:20 05:21 05:31 Temperature Pulse Rate 70 74 68 Pulse Rate [ From Monitor] Respiratory 23 24 Rate Blood Pressure 184/83 184/83 O2 Sat by Pulse 99 99 99 Oximetry 06/03/20 06/03/20 06/03/20 05:41 05:51 06:01 Temperature Pulse Rate 66 70 65 Pulse Rate [ From Monitor] Respiratory 24 24 24 Rate Blood Pressure 184/83 184/83 155/86 O2 Sat by Pulse 99 98 Oximetry 06/03/20 06/03/20 06/03/20 06:11 06:21 06:24 Temperature Pulse Rate 65 61 65 Pulse Rate [ From Monitor] Respiratory 24 24 Rate Blood Pressure 165/87 209/80 209/80 O2 Sat by Pulse 100 100 Oximetry 06/03/20 06/03/20 06/03/20 06:31 06:41 06:51 Temperature Pulse Rate 63 62 64 Pulse Rate [ From Monitor] Respiratory 24 24 24 Rate Blood Pressure 128/86 155/86 134/80 O2 Sat by Pulse 98 99 97 Oximetry 06/03/20 06/03/20 06/03/20 07:01 07:11 07:21 Temperature Pulse Rate 63 65 66 Pulse Rate [ From Monitor] Respiratory 24 24 24 Rate Blood Pressure 200/77 128/86 195/86 O2 Sat by Pulse 96 97 98 Oximetry 06/03/20 06/03/20 06/03/20 07:31 07:41 07:51 Temperature Pulse Rate 62 66 65 Pulse Rate [ From Monitor] Respiratory 24 24 24 Rate Blood Pressure 195/78 200/77 212/87 O2 Sat by Pulse 95 97 94 Oximetry 06/03/20 06/03/20 08:01 08:11 Temperature Pulse Rate 68 69 Pulse Rate [ From Monitor] Respiratory 24 24 Rate Blood Pressure 221/83 221/83 O2 Sat by Pulse 93 97 Oximetry Constitutional: no acute distress, other (elderly looking obese female riding set rate on MVS at rest) Eyes: non-icteric ENT: oropharynx moist, other (ETT 7.0 at 20 cm AYAN) Neck: supple, no lymphadenopathy Effort: mildly labored Ascultation: Bilateral: clear, diminished breath sounds Cardiovascular: regular rate and rhythm, other (S1,S2) Gastrointestinal: normoactive bowel sounds, non-tender, non-distended Integumentary: normal Extremities: no cyanosis, no edema, pink and warm Neurologic: non-focal exam (grossly, moving all extremities), pupils equal and round, other (agitation) Psychiatric: other (Unable to assess) CBC and BMP: 06/04/20 04:19 06/04/20 04:19 ABG, PT/INR, D-dimer: ABG ABG pH 7.397 pH Units (7.350-7.450) 06/03/20 05:25 ABG pCO2 32.3 mm Hg 06/03/20 05:25 ABG pO2 160.9 mm Hg (80.0-90.0) H 06/03/20 05:25 ABG O2 Saturation 99.0 % (95.0-99.0) 06/03/20 05:25 PT/INR, D-dimer PT 14.2 Sec. (12.2-14.9) 05/29/20 15:10 INR 1.08 (0.87-1.13) 05/29/20 15:10 D-Dimer 769.68 ng/mlDDU (0-234) H 06/02/20 13:49 Abnormal lab findings: Abnormal Labs 05/28/20 05/28/20 05/28/20 13:29 13:47 13:47 WBC RBC Hgb Hct RDW 15.3 H Lymph % (Auto) Lymph # Seg Neutrophils % Seg Neutrophils # D-Dimer Heparin Anti-Xa Level ABG pH ABG pO2 ABG HCO3 ABG O2 Saturation ABG Base Excess ABG Hemoglobin VBG pH Potassium 6.6 H* Chloride 109.2 H Carbon Dioxide 17 L BUN 29 H Creatinine 1.3 H Glucose 265 H POC Glucose 248 H Lactic Acid Calcium 8.1 L AST 63 H Lactate Dehydrogenase Total Creatine Kinase 301 H CK-MB (CK-2) 4.3 H Total Protein 5.4 L Albumin 2.6 L Urine WBC (Auto) Coronavirus (PCR) 05/28/20 05/28/20 05/28/20 13:47 13:47 14:46 WBC RBC Hgb Hct RDW Lymph % (Auto) Lymph # Seg Neutrophils % Seg Neutrophils # D-Dimer Heparin Anti-Xa Level ABG pH ABG pO2 ABG HCO3 ABG O2 Saturation ABG Base Excess ABG Hemoglobin VBG pH 7.152 L* Potassium 7.2 H* Chloride Carbon Dioxide BUN Creatinine Glucose POC Glucose Lactic Acid 3.40 H* Calcium AST Lactate Dehydrogenase Total Creatine Kinase CK-MB (CK-2) Total Protein Albumin Urine WBC (Auto) Coronavirus (PCR) 05/28/20 05/28/20 05/28/20 15:33 15:33 15:51 WBC RBC Hgb Hct RDW Lymph % (Auto) Lymph # Seg Neutrophils % Seg Neutrophils # D-Dimer 8780.43 H Heparin Anti-Xa Level ABG pH 7.284 L ABG pO2 273.0 H ABG HCO3 ABG O2 Saturation 99.4 H ABG Base Excess -6.1 L ABG Hemoglobin 17.2 H VBG pH Potassium Chloride Carbon Dioxide BUN Creatinine Glucose 152 H POC Glucose Lactic Acid Calcium AST Lactate Dehydrogenase 365 H Total Creatine Kinase CK-MB (CK-2) Total Protein Albumin Urine WBC (Auto) Coronavirus (PCR) 05/28/20 05/28/20 05/28/20 16:30 23:20 Unknown WBC RBC Hgb Hct RDW Lymph % (Auto) Lymph # Seg Neutrophils % Seg Neutrophils # D-Dimer Heparin Anti-Xa Level ABG pH ABG pO2 ABG HCO3 ABG O2 Saturation ABG Base Excess ABG Hemoglobin VBG pH Potassium Chloride Carbon Dioxide BUN Creatinine Glucose POC Glucose 224 H Lactic Acid Calcium AST Lactate Dehydrogenase Total Creatine Kinase CK-MB (CK-2) Total Protein Albumin Urine WBC (Auto) 17.0 H Coronavirus (PCR) Positive A 05/29/20 05/29/20 05/29/20 04:35 04:43 04:43 WBC RBC 3.48 L Hgb 9.8 L Hct 29.4 L RDW 16.0 H Lymph % (Auto) 7.4 L Lymph # 0.7 L Seg Neutrophils % 89.1 H Seg Neutrophils # 8.1 H D-Dimer Heparin Anti-Xa Level ABG pH ABG pO2 ABG HCO3 19.3 L ABG O2 Saturation ABG Base Excess -4.5 L ABG Hemoglobin 9.7 L VBG pH Potassium Chloride 110.2 H Carbon Dioxide 18 L BUN 32 H Creatinine 1.4 H Glucose 180 H POC Glucose Lactic Acid Calcium AST Lactate Dehydrogenase Total Creatine Kinase CK-MB (CK-2) Total Protein Albumin Urine WBC (Auto) Coronavirus (PCR) 05/29/20 05/29/20 05/30/20 15:10 17:17 00:08 WBC RBC Hgb 9.3 L Hct 28.7 L RDW Lymph % (Auto) Lymph # Seg Neutrophils % Seg Neutrophils # D-Dimer Heparin Anti-Xa Level 0.71 H ABG pH ABG pO2 ABG HCO3 ABG O2 Saturation ABG Base Excess ABG Hemoglobin VBG pH Potassium Chloride Carbon Dioxide BUN Creatinine Glucose POC Glucose 147 H Lactic Acid Calcium AST Lactate Dehydrogenase Total Creatine Kinase CK-MB (CK-2) Total Protein Albumin Urine WBC (Auto) Coronavirus (PCR) 05/30/20 05/30/20 05/30/20 00:12 04:15 06:07 WBC RBC Hgb Hct RDW Lymph % (Auto) Lymph # Seg Neutrophils % Seg Neutrophils # D-Dimer Heparin Anti-Xa Level ABG pH 7.460 H ABG pO2 106.0 H ABG HCO3 18.9 L ABG O2 Saturation ABG Base Excess -4.4 L ABG Hemoglobin 6.8 L VBG pH Potassium Chloride Carbon Dioxide BUN Creatinine Glucose POC Glucose 195 H 182 H Lactic Acid Calcium AST Lactate Dehydrogenase Total Creatine Kinase CK-MB (CK-2) Total Protein Albumin Urine WBC (Auto) Coronavirus (PCR) 05/30/20 05/30/20 05/30/20 08:37 12:33 15:58 WBC RBC Hgb Hct RDW Lymph % (Auto) Lymph # Seg Neutrophils % Seg Neutrophils # D-Dimer Heparin Anti-Xa Level 0.85 H 1.03 H ABG pH ABG pO2 ABG HCO3 ABG O2 Saturation ABG Base Excess ABG Hemoglobin VBG pH Potassium Chloride Carbon Dioxide BUN Creatinine Glucose POC Glucose 187 H Lactic Acid Calcium AST Lactate Dehydrogenase Total Creatine Kinase CK-MB (CK-2) Total Protein Albumin Urine WBC (Auto) Coronavirus (PCR) 05/30/20 05/30/20 05/31/20 17:57 23:36 02:16 WBC RBC Hgb 9.2 L Hct 27.5 L RDW Lymph % (Auto) Lymph # Seg Neutrophils % Seg Neutrophils # D-Dimer Heparin Anti-Xa Level ABG pH ABG pO2 ABG HCO3 ABG O2 Saturation ABG Base Excess ABG Hemoglobin VBG pH Potassium Chloride Carbon Dioxide BUN Creatinine Glucose POC Glucose 208 H 185 H Lactic Acid Calcium AST Lactate Dehydrogenase Total Creatine Kinase CK-MB (CK-2) Total Protein Albumin Urine WBC (Auto) Coronavirus (PCR) 05/31/20 05/31/20 05/31/20 03:55 06:16 12:20 WBC RBC Hgb Hct RDW Lymph % (Auto) Lymph # Seg Neutrophils % Seg Neutrophils # D-Dimer Heparin Anti-Xa Level ABG pH ABG pO2 94.7 H ABG HCO3 18.6 L ABG O2 Saturation ABG Base Excess -5.5 L ABG Hemoglobin 7.9 L VBG pH Potassium Chloride Carbon Dioxide BUN Creatinine Glucose POC Glucose 160 H 128 H Lactic Acid Calcium AST Lactate Dehydrogenase Total Creatine Kinase CK-MB (CK-2) Total Protein Albumin Urine WBC (Auto) Coronavirus (PCR) 05/31/20 05/31/20 05/31/20 13:03 18:13 23:51 WBC RBC Hgb Hct RDW Lymph % (Auto) Lymph # Seg Neutrophils % Seg Neutrophils # D-Dimer Heparin Anti-Xa Level ABG pH ABG pO2 ABG HCO3 ABG O2 Saturation ABG Base Excess ABG Hemoglobin VBG pH Potassium Chloride Carbon Dioxide 18 L BUN 48 H Creatinine 1.6 H Glucose 115 H POC Glucose 159 H 171 H Lactic Acid Calcium 8.3 L AST Lactate Dehydrogenase Total Creatine Kinase CK-MB (CK-2) Total Protein 5.4 L Albumin 2.4 L Urine WBC (Auto) Coronavirus (PCR) 06/01/20 06/01/20 06/01/20 04:00 05:48 12:28 WBC RBC Hgb Hct RDW Lymph % (Auto) Lymph # Seg Neutrophils % Seg Neutrophils # D-Dimer Heparin Anti-Xa Level ABG pH ABG pO2 109.8 H ABG HCO3 18.8 L ABG O2 Saturation ABG Base Excess -5.9 L ABG Hemoglobin 7.8 L VBG pH Potassium Chloride Carbon Dioxide BUN Creatinine Glucose POC Glucose 133 H 199 H Lactic Acid Calcium AST Lactate Dehydrogenase Total Creatine Kinase CK-MB (CK-2) Total Protein Albumin Urine WBC (Auto) Coronavirus (PCR) 06/01/20 06/02/20 06/02/20 17:29 00:08 04:20 WBC RBC Hgb 10.0 L Hct RDW Lymph % (Auto) Lymph # Seg Neutrophils % Seg Neutrophils # D-Dimer Heparin Anti-Xa Level ABG pH ABG pO2 ABG HCO3 ABG O2 Saturation ABG Base Excess ABG Hemoglobin VBG pH Potassium Chloride Carbon Dioxide BUN Creatinine Glucose POC Glucose 209 H 162 H Lactic Acid Calcium AST Lactate Dehydrogenase Total Creatine Kinase CK-MB (CK-2) Total Protein Albumin Urine WBC (Auto) Coronavirus (PCR) 06/02/20 06/02/20 06/02/20 04:20 04:44 05:53 WBC RBC Hgb Hct RDW Lymph % (Auto) Lymph # Seg Neutrophils % Seg Neutrophils # D-Dimer Heparin Anti-Xa Level 0.10 L ABG pH ABG pO2 150.6 H ABG HCO3 ABG O2 Saturation ABG Base Excess -4.1 L ABG Hemoglobin 11.8 L VBG pH Potassium Chloride Carbon Dioxide BUN Creatinine Glucose POC Glucose 149 H Lactic Acid Calcium AST Lactate Dehydrogenase Total Creatine Kinase CK-MB (CK-2) Total Protein Albumin Urine WBC (Auto) Coronavirus (PCR) 06/02/20 06/02/20 06/02/20 12:04 13:49 13:49 WBC RBC Hgb Hct RDW Lymph % (Auto) Lymph # Seg Neutrophils % Seg Neutrophils # D-Dimer 769.68 H Heparin Anti-Xa Level 0.28 L ABG pH ABG pO2 ABG HCO3 ABG O2 Saturation ABG Base Excess ABG Hemoglobin VBG pH Potassium Chloride Carbon Dioxide BUN Creatinine Glucose POC Glucose 220 H Lactic Acid Calcium AST Lactate Dehydrogenase Total Creatine Kinase CK-MB (CK-2) Total Protein Albumin Urine WBC (Auto) Coronavirus (PCR) 06/02/20 06/03/20 06/03/20 18:31 00:42 05:16 WBC 11.4 H RBC Hgb Hct RDW 16.4 H Lymph % (Auto) Lymph # Seg Neutrophils % Seg Neutrophils # D-Dimer Heparin Anti-Xa Level ABG pH ABG pO2 ABG HCO3 ABG O2 Saturation ABG Base Excess ABG Hemoglobin VBG pH Potassium Chloride Carbon Dioxide BUN Creatinine Glucose POC Glucose 225 H 212 H Lactic Acid Calcium AST Lactate Dehydrogenase Total Creatine Kinase CK-MB (CK-2) Total Protein Albumin Urine WBC (Auto) Coronavirus (PCR) 06/03/20 06/03/20 06/03/20 05:16 05:25 06:07 WBC RBC Hgb Hct RDW Lymph % (Auto) Lymph # Seg Neutrophils % Seg Neutrophils # D-Dimer Heparin Anti-Xa Level ABG pH ABG pO2 160.9 H ABG HCO3 19.4 L ABG O2 Saturation ABG Base Excess -4.9 L ABG Hemoglobin 7.0 L VBG pH Potassium Chloride Carbon Dioxide 18 L BUN 65 H Creatinine 2.0 H Glucose 175 H POC Glucose 177 H Lactic Acid Calcium 8.0 L AST Lactate Dehydrogenase Total Creatine Kinase CK-MB (CK-2) Total Protein 5.5 L Albumin 2.2 L Urine WBC (Auto) Coronavirus (PCR) Allied health notes reviewed: RT (Pulmoanry edema with bilateral pleural effusions)
[2020-06-03] MEDS: hydrALAZINE 25 MG TAB PO SCH ×3 (09:29→21:53)
[2020-06-03] MEDS: QUEtiapine 200 MG TAB PO SCH ×2 (09:30→22:39)
[2020-06-03] MEDS: PANTOPRAZOLE 40 MG INJ IV SCH ×2 (09:30→21:53)
[2020-06-03] MEDS: cloNIDine 0.1 MG TAB PO SCH ×3 (09:30→21:52)
[2020-06-03] MEDS: amLODIPine 10 MG TAB PO SCH (09:31)
[2020-06-03] MEDS: levETIRAcetam 500 MG TAB PO SCH ×2 (09:31→21:53)
[2020-06-03] MEDS: carvediloL 12.5 MG TAB PO SCH ×2 (09:31→21:54)
[2020-06-03] MEDS: DEXAMETHASONE 4 MG TAB PO SCH (09:31)
[2020-06-03] MEDS: SENNOSIDES ORAL LIQD 8.8 MG/5 ML ORAL LIQD FEEDTUBE SCH ×2 (09:32→21:53)
--- NOTE | 2020-06-03 10:44 | Progress Note ---
Assessment and Plan Cultures: Coronavirus PCR: Positive 05/28/2020 blood culture: no growth 05/28/2020 tracheal aspirate: Usual respiratory bobo 05/28/2020 urine culture: No growth A/P: 64-year-old female with hypertension, diastolic CHF, pulmonary hypertension, diabetes, obesity hypoventilation syndrome was admitted to the emergency room after she called EMS due to difficulty breathing. On the way to the hospital, patient developed cardiac arrest and was treated as per ACLS protocol: #Bilateral pneumonia: Secondary to COVID-19. #Acute hypoxic respiratory failure: On mechanical ventilation. #Status post PEA arrest. #Mild LFT elevation: likely from COVID-19. #Mild AVANI Recs: IV/PO Dexamethasone 6 mg daily x 10 days, day 6 Completed 5 days of IV Remdesivir 06/02/2020 prophylactic anticoagulation based on d-dimer per protocol ordered markers for AM including procalcitonin continue off antibiotics Mallory Wright MD, FACP [facility] C: [phone] O: [phone] F: [phone] Subjective Date of service: 06/03/20 Principal diagnosis: Ac hypoxemic resp failure; COVID-19; pneumonia; CHF; Pulm HTN; OHS; DM II Interval history: One fever. Otherwise remains stable, intubated, on the vent. Objective - Exam Narrative Exam: Physical Exam (reviewed in chart due to PPE conservation) Constitutional: intubated, sedated, on the vent Head, Ears, Nose: normocephalic, atraumatic Eyes: limited due to PPE conservation strategy Neck: intubated Oral: intubated Cardiovascular: limited due to PPE conservation strategy Respiratory: limited due to PPE conservation strategy GI: limited due to PPE conservation strategy Musculoskeletal: limited due to PPE conservation strategy Skin: limited due to PPE conservation strategy Hem/Lymphatic: limited due to PPE conservation strategy Psych: no agitation Neurological: sedated, intubated, on the vent, exam limited - Constitutional Vitals: Vital Signs Temp Pulse Resp BP Pulse Ox 98.6 F 59 L 24 169/75 98 06/03/20 08:00 06/03/20 10:11 06/03/20 10:11 06/03/20 10:11 06/03/20 10:11 Temperature -Last 24 Hours Temperature 98.6 F Temperature 103.1 F Temperature 97.9 F Temperature 97.4 F Temperature 98 F Temperature 98.3 F - Labs CBC & Chem 7: 06/03/20 05:16 06/03/20 05:16 Labs: Abnormal lab results 06/02/20 06/02/20 06/02/20 Range/Units 12:04 13:49 13:49 WBC (4.5-11.0) K/mm3 RDW (13.2-15.2) % D-Dimer 769.68 H (0-234) ng/mlDDU Heparin Anti-Xa Level 0.28 L (0.3-0.7) U.I./ml ABG pO2 (80.0-90.0) mm Hg ABG HCO3 (20.0-26.0) mmol/L ABG Base Excess (-2.0-3.0) mmol/L ABG Hemoglobin (12.0-16.0) gm/dl Carbon Dioxide (22-30) mmol/L BUN (7-17) mg/dL Creatinine (0.6-1.2) mg/dL Glucose (65-100) mg/dL POC Glucose 220 H (70-105) Calcium (8.4-10.2) mg/dL Total Protein (6.3-8.2) g/dL Albumin (3.9-5) g/dL 06/02/20 06/03/20 06/03/20 Range/Units 18:31 00:42 05:16 WBC 11.4 H (4.5-11.0) K/mm3 RDW 16.4 H (13.2-15.2) % D-Dimer (0-234) ng/mlDDU Heparin Anti-Xa Level (0.3-0.7) U.I./ml ABG pO2 (80.0-90.0) mm Hg ABG HCO3 (20.0-26.0) mmol/L ABG Base Excess (-2.0-3.0) mmol/L ABG Hemoglobin (12.0-16.0) gm/dl Carbon Dioxide (22-30) mmol/L BUN (7-17) mg/dL Creatinine (0.6-1.2) mg/dL Glucose (65-100) mg/dL POC Glucose 225 H 212 H (70-105) Calcium (8.4-10.2) mg/dL Total Protein (6.3-8.2) g/dL Albumin (3.9-5) g/dL 06/03/20 06/03/20 06/03/20 Range/Units 05:16 05:25 06:07 WBC (4.5-11.0) K/mm3 RDW (13.2-15.2) % D-Dimer (0-234) ng/mlDDU Heparin Anti-Xa Level (0.3-0.7) U.I./ml ABG pO2 160.9 H (80.0-90.0) mm Hg ABG HCO3 19.4 L (20.0-26.0) mmol/L ABG Base Excess -4.9 L (-2.0-3.0) mmol/L ABG Hemoglobin 7.0 L (12.0-16.0) gm/dl Carbon Dioxide 18 L (22-30) mmol/L BUN 65 H (7-17) mg/dL Creatinine 2.0 H (0.6-1.2) mg/dL Glucose 175 H (65-100) mg/dL POC Glucose 177 H (70-105) Calcium 8.0 L (8.4-10.2) mg/dL Total Protein 5.5 L (6.3-8.2) g/dL Albumin 2.2 L (3.9-5) g/dL
--- NOTE | 2020-06-03 12:52 | Progress Note ---
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 Well-preserved left ventricular systolic function. Conservative cardiac management. Subjective Date of service: 06/03/20 Principal diagnosis: Ac hypoxemic resp failure; COVID-19; pneumonia; CHF; Pulm HTN; OHS; DM II Interval history: Sinus rhythm on shelter monitor. No cardiac events reported overnight. Objective Vital Signs Temp Pulse Pulse Resp BP Pulse Ox 06/03/20 12:41 63 17 156/58 97 06/03/20 12:31 58 L 16 156/58 96 06/03/20 12:21 59 L 16 147/55 98 06/03/20 12:11 59 L 16 152/56 98 06/03/20 12:00 97.8 F 59 L 77 16 152/56 96 06/03/20 11:51 56 L 16 147/55 97 06/03/20 11:41 56 L 16 147/55 97 06/03/20 11:30 56 L 16 147/55 95 06/03/20 11:28 58 L 145/55 97 06/03/20 11:21 58 L 16 145/55 97 06/03/20 11:11 57 L 16 142/53 97 06/03/20 11:00 58 L 16 142/53 95 06/03/20 10:51 58 L 16 140/51 97 06/03/20 10:41 57 L 16 141/53 96 06/03/20 10:30 57 L 16 141/53 95 06/03/20 10:21 56 L 16 138/57 96 06/03/20 10:11 59 L 24 169/75 98 06/03/20 10:01 59 L 24 169/75 95 06/03/20 09:51 64 24 186/74 97 06/03/20 09:41 65 24 234/97 96 06/03/20 09:31 72 236/85 06/03/20 09:30 79 20 236/85 96 06/03/20 09:29 77 236/85 06/03/20 09:21 70 24 236/85 97 06/03/20 09:16 70 236/85 98 06/03/20 09:11 66 24 236/88 97 06/03/20 09:00 72 24 226/97 97 06/03/20 08:51 68 25 H 226/97 96 06/03/20 08:40 67 24 200/77 96 06/03/20 08:31 66 24 219/82 95 06/03/20 08:21 88 15 219/88 97 06/03/20 08:11 69 24 221/83 97 06/03/20 08:01 68 24 221/83 93 06/03/20 08:00 98.6 F 77 77 24 98 06/03/20 07:51 65 24 212/87 94 06/03/20 07:41 66 24 200/77 97 06/03/20 07:31 62 24 195/78 95 06/03/20 07:21 66 24 195/86 98 06/03/20 07:11 65 24 128/86 97 06/03/20 07:01 63 24 200/77 96 06/03/20 06:51 64 24 134/80 97 06/03/20 06:41 62 24 155/86 99 06/03/20 06:31 63 24 128/86 98 06/03/20 06:24 65 209/80 06/03/20 06:21 61 24 209/80 100 06/03/20 06:11 65 24 165/87 100 06/03/20 06:01 65 24 155/86 98 06/03/20 05:51 70 24 184/83 06/03/20 05:41 66 24 184/83 99 06/03/20 05:31 68 24 184/83 99 06/03/20 05:21 74 23 184/83 99 06/03/20 05:20 70 99 06/03/20 05:11 79 22 184/83 99 06/03/20 05:01 68 24 184/83 100 06/03/20 04:51 68 24 184/83 100 06/03/20 04:41 71 23 184/83 99 06/03/20 04:31 75 24 184/83 100 06/03/20 04:21 60 24 184/83 100 06/03/20 04:11 59 L 24 184/83 100 06/03/20 04:01 58 L 24 184/83 100 06/03/20 04:00 103.1 F H 68 68 68 H 98 06/03/20 03:51 64 24 184/83 99 06/03/20 03:41 62 24 184/83 99 06/03/20 03:31 63 24 184/83 97 06/03/20 03:21 64 24 184/83 96 06/03/20 03:11 64 24 184/83 98 06/03/20 03:01 63 24 184/83 96 06/03/20 03:00 68 74 74 H 98 06/03/20 02:51 68 24 184/83 99 06/03/20 02:41 73 24 184/83 97 06/03/20 02:31 77 21 184/83 96 06/03/20 02:21 68 24 184/83 96 06/03/20 02:11 69 24 184/83 96 06/03/20 02:01 69 24 184/83 96 06/03/20 01:51 70 24 184/83 99 06/03/20 01:41 78 24 99 06/03/20 01:31 74 24 99 06/03/20 01:25 78 74 74 H 98 06/03/20 01:23 93 H 18 99 06/03/20 00:41 68 24 202/88 98 06/03/20 00:30 76 24 202/88 98 06/03/20 00:21 72 24 198/80 98 06/03/20 00:18 79 74 74 H 98 06/03/20 00:11 79 24 189/83 99 06/03/20 00:04 90 189/83 06/03/20 00:00 97.9 F 71 24 189/83 96 06/02/20 23:57 67 184/75 98 06/02/20 23:51 69 24 184/75 98 06/02/20 23:44 70 24 184/81 98 06/02/20 23:41 72 24 184/81 99 06/02/20 23:39 72 24 184/81 98 06/02/20 23:30 70 24 184/81 96 06/02/20 23:21 70 24 171/72 98 06/02/20 23:11 71 24 187/84 98 06/02/20 23:00 76 24 187/84 97 06/02/20 22:51 73 24 178/75 98 06/02/20 22:41 74 24 173/75 98 06/02/20 22:30 72 24 173/75 96 06/02/20 22:21 71 24 165/75 98 06/02/20 22:11 73 24 185/74 97 06/02/20 22:00 78 24 188/83 98 06/02/20 21:51 78 24 188/83 98 06/02/20 21:44 97.4 F L 06/02/20 21:41 75 24 207/84 98 06/02/20 21:33 80 207/84 06/02/20 21:31 76 24 207/84 96 06/02/20 21:21 74 74 24 174/76 95 06/02/20 21:11 68 24 172/76 94 06/02/20 21:00 69 24 172/76 93 06/02/20 20:51 71 18 158/74 94 06/02/20 20:41 65 24 110/51 94 06/02/20 20:30 55 L 24 110/51 90 06/02/20 20:21 56 L 24 113/48 93 06/02/20 20:11 56 L 24 109/53 97 06/02/20 20:00 62 12 109/53 95 06/02/20 19:59 57 L 109/53 97 06/02/20 19:51 61 12 113/52 96 06/02/20 19:41 63 11 L 115/57 98 06/02/20 19:31 66 11 L 115/57 95 06/02/20 19:21 70 10 L 154/65 97 06/02/20 19:11 69 12 146/76 97 06/02/20 19:00 75 66 10 L 146/76 95 06/02/20 18:51 76 10 L 154/82 97 06/02/20 18:41 82 10 L 181/72 98 06/02/20 18:31 77 11 L 181/72 96 06/02/20 18:21 78 11 L 159/85 98 06/02/20 18:11 78 12 174/80 98 06/02/20 18:00 78 10 L 174/80 96 06/02/20 17:51 78 12 139/80 99 06/02/20 17:41 81 14 183/86 98 06/02/20 17:30 77 12 139/80 99 06/02/20 17:21 76 10 L 183/86 99 06/02/20 17:13 56 L 99/55 99 08/25/20 17:11 70 10 L 133/80 99 06/02/20 17:00 74 11 L 133/80 98 06/02/20 16:51 74 11 L 189/103 99 06/02/20 16:41 76 9 L 189/103 99 06/02/20 16:31 84 11 L 189/103 98 06/02/20 16:21 79 7 L 175/80 100 06/02/20 16:11 70 10 L 144/79 99 06/02/20 16:00 56 L 56 L 11 L 105/53 99 06/02/20 15:51 55 L 11 L 99/55 99 06/02/20 15:41 55 L 11 L 99/55 99 06/02/20 15:38 98 F 06/02/20 15:30 57 L 10 L 99/55 98 06/02/20 15:21 57 L 11 L 99/53 99 06/02/20 15:11 56 L 12 99/53 99 06/02/20 15:00 57 L 11 L 99/53 99 06/02/20 14:51 58 L 11 L 101/65 99 06/02/20 14:41 56 L 12 102/52 99 06/02/20 14:30 56 L 12 102/52 98 06/02/20 14:21 56 L 11 L 95/53 99 06/02/20 14:11 56 L 11 L 100/53 99 06/02/20 14:00 57 L 11 L 100/53 98 06/02/20 13:51 57 L 12 94/54 99 06/02/20 13:41 56 L 11 L 99/50 99 06/02/20 13:30 56 L 11 L 99/50 98 06/02/20 13:21 57 L 11 L 96/49 99 06/02/20 13:11 58 L 12 92/48 99 06/02/20 13:00 58 L 11 L 100/60 97 - Physical Examination Narrative exam: Deferred due to coronavirus isolation protocol. General: Other (intubated on the vent) Cardiac: Positive: Reg Rate and Rhythm - Labs and Meds Cardiac Enzymes 06/03/20 Range/Units 05:16 AST 22 (5-40) units/L CBC 06/03/20 Range/Units 05:16 WBC 11.4 H (4.5-11.0) K/mm3 RBC 4.02 (3.65-5.03) M/mm3 Hgb 11.2 (10.1-14.3) gm/dl Hct 34.5 (30.3-42.9) % Plt Count 237 (140-440) K/mm3 Lymph # Auto Wrecker [place] # Auto Wrecker Eos # Auto Wrecker Baso # Auto Wrecker Comprehensive Metabolic Panel 06/03/20 Range/Units 05:16 Sodium 138 (137-145) mmol/L Potassium 4.0 (3.6-5.0) mmol/L Chloride 103.6 (98-107) mmol/L Carbon Dioxide 18 L (22-30) mmol/L BUN 65 H (7-17) mg/dL Creatinine 2.0 H (0.6-1.2) mg/dL Glucose 175 H (65-100) mg/dL Calcium 8.0 L (8.4-10.2) mg/dL AST 22 (5-40) units/L ALT 18 (7-56) units/L Alkaline Phosphatase 97 (35-129) units/L Total Protein 5.5 L (6.3-8.2) g/dL Albumin 2.2 L (3.9-5) g/dL - Allied health notes Allied health notes reviewed: RT (Pulmoanry edema with bilateral pleural effusions)
[2020-06-03] MEDS: fentaNYL DRIP Premix 2,000 MCG/100 ML BAG IV SCH (14:04)
[2020-06-03] MEDS: HEPARIN/ 0.45% NACL DRIP 25,000 UNIT/500 ML BAG IV SCH (17:25)
--- NOTE | 2020-06-03 21:16 | Progress Note ---
Assessment and Plan Assessment and plan: 64 YO Female with a medical history of HTN, Diastolic CHF, Pulmonary HTN, DM, Obesity Hypoventilation Syndrome presents to ED for evaluation of shortness of breath. Patients history taken from EMS staff, ED staff. As per staff, the EMS was notified for difficulty breathing. Upon arrival to the patient's home the patient was found to be in distress and was subsequently transported to [facility] for further evaluation and care. In route to [facility] the patient developed cardiac arrest and was treated in accordance with ACLS protocol with return of ROSC Patient was seen and evaluated in the emergency department and was found to have acute hypoxemic respiratory failure status post cardiac arrest. Patient was intubated and placed on ventilatory support. Patient admitted to ICU due to increased risk of decompensation. Critical care team consulted in ED. She was found to have COVID-19 iinfection and was started on steroids and remdesivir. ID was consulted. Cardiology was consulted for her systolic heart failure and cardiac arrest. 06/01. Patient remains intubated and on ventilatory support today. Patient has multiple organ system failure and has poor prognosis. Patient did not experience significant medical decompensation overnight but no improvement with current therapy. 06/02. Remains intubated. her BP is elevated. Started on nicardipine drip. Cardiology following. 06/03. BP is better. Hb stable Patient Problems (1) Acute hypoxemic respiratory failure Current Visit: Yes Status: Acute Plan to address problem: From COVID-19 viral infection Patient intubated, sedated and on ventilatory support. Critical care team on board The high probability of a clinically significant, sudden or life threatening deterioration of the [pulmonary, renal, cardiac, neuro] system(s) required my full and direct attention, intervention and personal management. The aggregate critical care time was [90] minutes. This time is in addition to time spent performing reported procedures but includes the following: [x] Data Review and interpretation [x] Patient assessment and monitoring of vital signs [x] Documentation [x] Medication orders and management (2) Cardiac arrest Current Visit: Yes Status: Acute Plan to address problem: Cardiology team on board Conservative management as per cardiology (3) Acute renal failure Current Visit: Yes Status: Acute Plan to address problem: Monitor UO Strict I/O Avoid ACEI and other nephrotoxic medications Check renal US, UA, urine lytes, protein cr/ratio (4) Coronavirus infection Current Visit: Yes Status: Acute Plan to address problem: Completed remdesivir on 06/02 Continue dexamethasone - Last dose 06/07 ID recs appreciated. Maintained on ventilator (5) CHF (congestive heart failure) Current Visit: Yes Status: Acute Qualifiers: Heart failure type: systolic Heart failure chronicity: acute Qualified Code(s): I50.21 - Acute systolic (congestive) heart failure Plan to address problem: Cardiology following. (6) Coffee ground emesis -likely upper GI bleed Possible stress ulcers Start PPI BID Monitor H/H (7) DVT prophylaxis Current Visit: Yes Status: Acute Plan to address problem: SCD to bilateral lower extremities while in bed Heparin (8) Advance care planning Current Visit: Yes Status: Acute Plan to address problem: Disease education conducted, prognosis discussed, +30 minutes. Patient is full code. History Interval history: See assessment and plan Hospitalist Physical - Constitutional Vitals: Temp Pulse Resp BP Pulse Ox 98.7 F 57 L 16 165/75 95 06/03/20 16:00 06/03/20 20:48 06/03/20 18:00 06/03/20 20:48 06/03/20 20:48 General appearance: Present: no acute distress, obese, other (intubated on the vent) - EENT Eyes: Present: PERRL - Respiratory Respiratory: bilateral: diminished - Cardiovascular Heart Sounds: Present: S1 & S2 - Abdominal General gastrointestinal: soft, non-tender, non-distended - Neurologic Neurologic: other (Intubated) Results - Labs CBC & Chem 7: 06/04/20 04:19 06/04/20 04:19 Labs: Laboratory Last Values WBC 11.4 K/mm3 (4.5-11.0) H 06/03/20 05:16 RBC 4.02 M/mm3 (3.65-5.03) 06/03/20 05:16 Hgb 11.2 gm/dl (10.1-14.3) 06/03/20 05:16 Hct 34.5 % (30.3-42.9) 06/03/20 05:16 MCV 86 fl (79-97) 06/03/20 05:16 MCH 28 pg (28-32) 06/03/20 05:16 MCHC 33 % (30-34) 06/03/20 05:16 RDW 16.4 % (13.2-15.2) H 06/03/20 05:16 Plt Count 237 K/mm3 (140-440) 06/03/20 05:16 Lymph % (Auto) Auto Brake Technician 06/03/20 05:16 [place] % (Auto) Auto Brake Technician 06/03/20 05:16 Eos % (Auto) Auto Brake Technician 06/03/20 05:16 Baso % (Auto) Auto Brake Technician 06/03/20 05:16 Lymph # Auto Brake Technician 06/03/20 05:16 [place] # Auto Brake Technician 06/03/20 05:16 Eos # Auto Brake Technician 06/03/20 05:16 Baso # Auto Brake Technician 06/03/20 05:16 Seg Neutrophils % Auto Brake Technician 06/03/20 05:16 Seg Neutrophils # Auto Brake Technician 06/03/20 05:16 PT 14.2 Sec. (12.2-14.9) 05/29/20 15:10 INR 1.08 (0.87-1.13) 05/29/20 15:10 APTT 27.2 Sec. (24.2-36.6) 05/29/20 15:10 D-Dimer 769.68 ng/mlDDU (0-234) H 06/02/20 13:49 Heparin Anti-Xa Level 0.32 U.I./ml (0.3-0.7) 06/03/20 16:13 ABG pH 7.397 pH Units (7.350-7.450) 06/03/20 05:25 ABG pCO2 32.3 mm Hg 06/03/20 05:25 ABG pO2 160.9 mm Hg (80.0-90.0) H 06/03/20 05:25 ABG HCO3 19.4 mmol/L (20.0-26.0) L 06/03/20 05:25 ABG O2 Saturation 99.0 % (95.0-99.0) 06/03/20 05:25 ABG O2 Content 10.0 (0.0-44) 06/03/20 05:25 ABG Base Excess -4.9 mmol/L (-2.0-3.0) L 06/03/20 05:25 ABG Hemoglobin 7.0 gm/dl (12.0-16.0) L 06/03/20 05:25 ABG Carboxyhemoglobin 1.0 % (0.0-5.0) 06/03/20 05:25 ABG Methemoglobin 0.5 % (0.0-1.5) 06/03/20 05:25 VBG pH 7.152 (7.320-7.420) L* 05/28/20 13:47 Oxyhemoglobin 97.5 % (95.0-99.0) 06/03/20 05:25 FiO2 40 % 06/03/20 05:25 Sodium 138 mmol/L (137-145) 06/03/20 05:16 Potassium 4.0 mmol/L (3.6-5.0) 06/03/20 05:16 Chloride 103.6 mmol/L (98-107) 06/03/20 05:16 Carbon Dioxide 18 mmol/L (22-30) L 06/03/20 05:16 Anion Gap 20 mmol/L 06/03/20 05:16 BUN 65 mg/dL (7-17) H 06/03/20 05:16 Creatinine 2.0 mg/dL (0.6-1.2) H 06/03/20 05:16 Estimated GFR 25 ml/min 06/03/20 05:16 BUN/Creatinine Ratio 33 % 06/03/20 05:16 Glucose 175 mg/dL (65-100) H 06/03/20 05:16 POC Glucose 211 (70-105) H 06/03/20 18:24 Lactic Acid 1.90 mmol/L (0.7-2.0) 05/28/20 14:46 Calcium 8.0 mg/dL (8.4-10.2) L 06/03/20 05:16 Ferritin 179.4 ng/mL (10.0-200.0) 05/28/20 15:33 Total Bilirubin < 0.20 mg/dL (0.1-1.2) 06/03/20 05:16 AST 22 units/L (5-40) 06/03/20 05:16 ALT 18 units/L (7-56) 06/03/20 05:16 Alkaline Phosphatase 97 units/L (35-129) 06/03/20 05:16 Lactate Dehydrogenase 365 units/L (91-180) H 05/28/20 15:33 Total Creatine Kinase 301 units/L (30-135) H 05/28/20 13:47 CK-MB (CK-2) 4.3 ng/mL (0.0-4.0) H 05/28/20 13:47 CK-MB (CK-2) Rel Index 1.4 (0-4) 05/28/20 13:47 C-Reactive Protein 0.20 mg/dL (0.00-1.30) 05/28/20 15:33 Total Protein 5.5 g/dL (6.3-8.2) L 06/03/20 05:16 Albumin 2.2 g/dL (3.9-5) L 06/03/20 05:16 Albumin/Globulin Ratio 0.7 % 06/03/20 05:16 Procalcitonin < 0.05 ng/mL (<0.15) 05/28/20 15:33 Urine Color Yellow (Yellow) 05/28/20 16:30 Urine Turbidity Slightly-cloudy (Clear) 05/28/20 16:30 Urine pH 6.0 (5.0-7.0) 05/28/20 16:30 Ur Specific [place] 1.018 (1.003-1.030) 05/28/20 16:30 Urine Protein >500 mg/dL (Negative) 05/28/20 16:30 Urine Glucose (UA) >=500 mg/dL (Negative) 05/28/20 16:30 Urine Ketones Neg mg/dL (Negative) 05/28/20 16:30 Urine Blood Neg (Negative) 05/28/20 16:30 Urine Nitrite Neg (Negative) 05/28/20 16:30 Urine Bilirubin Neg (Negative) 05/28/20 16:30 Urine Urobilinogen < 2.0 mg/dL (<2.0) 05/28/20 16:30 Ur Leukocyte Esterase Neg (Negative) 05/28/20 16:30 Urine WBC (Auto) 17.0 /HPF (0.0-6.0) H 05/28/20 16:30 Urine RBC (Auto) 22.0 /HPF (0.0-6.0) 05/28/20 16:30 U Epithel Cells (Auto) 2.0 /HPF (0-13.0) 05/28/20 16:30 Urine Bacteria (Auto) 2+ /HPF (Negative) 05/28/20 16:30 Urine Mucus Few /HPF 05/28/20 16:30 Urine Yeast (Budding) 1+ /HPF 05/28/20 16:30 Coronavirus (PCR) Positive (Negative) A 05/28/20 Unknown Microbiology: Microbiology 05/28/20 15:33 Peripheral/Venous Blood Culture - Final NO GROWTH AFTER 5 DAYS 05/28/20 15:40 Peripheral/Venous Blood Culture - Final NO GROWTH AFTER 5 DAYS - Diagnostic Impressions Diagnostic Impressions: Echocardiogram Limited Views 05/29/20 13:52 Transthoracic Echocardiogram Indication: Pulm Embolus BP: 169/76 HR: 85 Conclusions *Limited study for RV size post cardiopulmonar arrest. *RV is only slightly dilated, no significant difference from prior echo 05/13/2020. *Global left ventricular systolic function is at the lower limits of normal. *The estimated ejection fraction is 45-50%. *Mild to moderate concentric left ventricular hypertrophy is observed. *The left and right atria are both mild to moderately dilated. Findings Left Ventricle: The left ventricular chamber size is mildly dilated. Mild to moderate concentric left ventricular hypertrophy is observed. Global left ventricular systolic function is at the lower limits of normal. The estimated ejection fraction is 45-50%. Left Atrium: The left atrium is mild to moderately dilated. Right Ventricle: The right ventricle is slightly dilated. Right Atrium: The right atrium is mild to moderately dilated. Aortic Valve: The aortic valve leaflets are moderately thickened. Mitral Valve: There is mitral annular calcification. The mitral valve leaflets are moderately thickened. Tricuspid Valve: The tricuspid valve leaflets are mildly thickened. Pericardium: A trivial pericardial effusion is visualized. NDUM: 05/29/20 1808 Amended Report Transthoracic Echocardiogram Indication: Pulm Embolus BP: 169/76 HR: 85 Conclusions *Limited study for RV size post cardiopulmonary arrest. *RV is only slightly dilated, no significant difference from prior echo 05/13/2020. *Global left ventricular systolic function is at the lower limits of normal. *The estimated ejection fraction is 45-50%. *Mild to moderate concentric left ventricular hypertrophy is observed. *The left and right atria are both mild to moderately dilated. Findings Left Ventricle: The left ventricular chamber size is mildly dilated. Mild to moderate concentric left ventricular hypertrophy is observed. Global left ventricular systolic function is at the lower limits of normal. The estimated ejection fraction is 45-50%. Left Atrium: The left atrium is mild to moderately dilated. Right Ventricle: The right ventricle is slightly dilated. Right Atrium: The right atrium is mild to moderately dilated. Aortic Valve: The aortic valve leaflets are moderately thickened. Mitral Valve: There is mitral annular calcification. The mitral valve leaflets are moderately thickened. Tricuspid Valve: The tricuspid valve leaflets are mildly thickened. Pericardium: A trivial pericardial effusion is visualized. Helm/IV: Voiding Method Indwelling Catheter IV Catheter Type [Left INT / Saline Lock Antecubital] IV Catheter Type [Right Peripheral IV Forearm] IV Catheter Type [Left Leg] Intra-osseous Active Medications - Current Medications Current Medications: Generic Name Dose Route Start Last Admin Trade Name Freq PRN Reason Stop Dose Admin Amlodipine Besylate 10 mg 06/02/20 11:00 06/03/20 09:31 Amlodipine PO 10 mg DAILY NELSON Administration Lipase/Protease/Amylase 1 each 05/29/20 13:[address] 10,500 Unit FEEDTUBE PRN PRN For Clogged Feeding Tube Carvedilol 12.5 mg 06/03/20 10:00 06/03/20 09:31 Coreg PO 12.5 mg BID NELSON Administration Clonidine HCl 0.3 mg 06/03/20 09:00 06/03/20 13:56 Catapres PO 0.3 mg Q8HR NELSON Administration Dexamethasone 6 mg 05/29/20 15:00 06/03/20 09:31 Decadron PO 06/07/20 10:01 6 mg DAILY NELSON Administration Fentanyl 50 mcg 05/29/20 14:21 Sublimaze IV Q10MIN PRN ANALGESIA Hydralazine HCl 50 mg 06/03/20 09:00 06/03/20 13:55 Apresoline PO 50 mg Q8HR NELSON Administration Hydrophilic Ointment 1 applic 05/28/20 13:49 Vaseline Lip Therapy TP Q2HR PRN Dry Lips Heparin Sodium/Sodium Chloride 25,000 unit in 500 mls @ 30 mls/hr 05/29/20 15:00 06/03/20 17:25 Heparin/ 0.45% Nacl-25,000 Unit/500 Ml IV 1,450 units/hr TITR NELSON 29 mls/hr Administration Protocol 1,500 UNITS/HR Fentanyl Citrate 2,000 mcg in 100 mls @ 6.095 mls/hr 05/29/20 15:00 06/03/20 14:04 Fentanyl Drip Premix IV 1 mcg/kg/hr TITR NELSON 6.095 mls/hr Administration Protocol 1 MCG/KG/HR Nicardipine HCl 50 mg/ Sodium 250 mls @ 25 mls/hr 06/02/20 09:00 06/02/20 11:23 Chloride IV 0 mg/hr TITR NELSON 0 mls/hr Titration Protocol 5 MG/HR Insulin Human Lispro 0 unit 05/29/20 18:00 06/03/20 18:14 Humalog SUB-Q 4 unit Q6H NELSON Administration Protocol Labetalol HCl 20 mg 06/03/20 09:00 Labetalol IV Q4H PRN HYPERTENSION Levetiracetam 500 mg 05/29/20 22:00 06/03/20 09:31 Keppra PO 500 mg BID NELSON Administration Multi-Ingred Cream/Lotion/Oil/Oint 1 applic 05/28/20 13:49 Artificial Tears Ophth Oint OU Q4HR PRN Dry Eye(s) Ondansetron HCl 4 mg 06/02/20 09:00 Zofran IV Q8H PRN Nausea And Vomiting Pantoprazole Sodium 40 mg 06/02/20 22:00 06/03/20 09:30 Protonix IV 40 mg BID NELSON Administration Quetiapine Fumarate 200 mg 06/03/20 10:00 06/03/20 09:30 Seroquel PO 200 mg BID NELSON Administration Senna 17.6 mg 06/03/20 10:00 06/03/20 09:32 Senokot FEEDTUBE 17.6 mg BID NELSON Administration Simple Syrup 15 ml 05/29/20 13:39 Simple Syrup FEEDTUBE PRN PRN Hypoglycemia Simple Syrup 30 ml 05/29/20 13:39 Simple Syrup FEEDTUBE PRN PRN Hypoglycemia Sodium Bicarbonate 325 mg 05/29/20 13:39 Sodium Bicarbonate FEEDTUBE PRN PRN For Clogged Feeding Tube Sodium Chloride 10 ml 05/28/20 22:00 06/03/20 09:32 Sodium Chloride Flush Syringe 10 Ml IV 10 ml BID NELSON Administration Sodium Chloride 10 ml 05/28/20 19:08 Sodium Chloride Flush Syringe 10 Ml IV PRN PRN LINE FLUSH Nutrition/Malnutrition Assess - Dietary Evaluation Nutrition/Malnutrition Findings: Nutrition Notes Start: 05/29/20 11:45 Freq: Status: Active Protocol: Document 06/01/20 09:57 JOSEF (Rec: 06/01/20 10:02 JOSEF [email or web address]) Nutrition Notes Initial or Follow up Reassessment Current Diagnosis Heart Failure,Respiratory Failure Other Pertinent Diagnosis s/p Cardiac Arrest, Metabolic Encephalopathy, COVID-19 (+) Current Diet TF - Nepro at 40ml/hr Labs/Tests Reviewed Pertinent Medications Lasix Height 5 ft 6 in Weight 123 kg [place] Body Weight (kg) 59.09 BMI 43.7 Weight Status Morbidly Obese Subjective/Other Information Per RN, pt tolerating TF at goal rate. Pt remains on vent support. Burn Absent Trauma Absent #1 Nutrition Diagnosis Inadequate oral intake Diagnosis Progress(for reassessment Continues documentation) Is patient on ventilator? Yes Is Patient Ambulatory and/or Out of Bed No REE-([facility]-confined to bed) 6920.095 Additional Notes Pro needs up to 2.5g/kg IBW: up to 148g/day Fluid needs 1ml/kcal Nutrition Intervention Nutrition Support: Continue Nepro at 40ml/hr Flush with 175ml q4h Kcal 1,728 Protein (gm) 78 Fluid (mL) 698 Goal #1 TF tolerance Goal #2 TF to meet at least 75% energy and pro needs Follow-Up By: 06/08/20 Additional Comments F/U: stable TF, vent status, wt
[2020-06-04] MEDS: INSULIN LISPRO 100 UNIT/ML VIAL 3 mL SUB-Q SCH ×4 (00:23→18:21)
[2020-06-04 00:51] LABS: Bacteria,Urine 1+ /HPF (Negative); Bilirubin,Urine NEG (Negative); Blood,Urine NEG (Negative); Color,Urine Yellow (Yellow); Mucus,Urine FEW /HPF; Urobilinogen,Urine < 2.0 mg/dL (<2.0)
[2020-06-04 01:05] LABS: Protein,Urine >500 mg/dL (Negative)
[2020-06-04 04:06] LABS: ABG Base Excess -4.7 mmol/L (-2.0-3.0); ABG HCO3 20.8 mmol/L (20.0-26.0); ABG Methemoglobin 0.6 % (0.0-1.5); ABG Oxygen Saturation 95.8 % (95.0-99.0); ABG PCO2 40.4 mm Hg; ABG PH 7.331 pH Units (7.350-7.450); ABG PO2 82.9 mm Hg (80.0-90.0)
[2020-06-04] MEDS: hydrALAZINE 25 MG TAB PO SCH ×3 (05:49→23:46)
[2020-06-04] MEDS: cloNIDine 0.2 MG TAB PO SCH ×3 (05:49→23:51)
[2020-06-04] MEDS: cloNIDine 0.1 MG TAB PO SCH ×3 (05:49→23:50)
[2020-06-04 06:30] LABS: BUN/Creatinine Ratio 37; Blood Urea Nitrogen 73 mg/dL (7-17); Hemolysis Index 9
[2020-06-04 06:33] LABS: Basophils % (Auto) 0.2 % (0.0-1.8); Hematocrit 26.8 % (30.3-42.9); Hemoglobin 8.9 gm/dl (10.1-14.3); Lymphocytes # (Auto) 0.6 K/mm3 (1.2-5.4); Mean Corpuscular HGB Conc 33 % (30-34); Mean Corpuscular Volume 85 fl (79-97); Monocytes # (Auto) 0.8 K/mm3 (0.0-0.8); Monocytes % (Auto) 7.2 % (0.0-7.3); Platelet Count 223 K/mm3 (140-440); Red Blood Count 3.15 M/mm3 (3.65-5.03); Red Cell Distribution Width 15.9 % (13.2-15.2)
[2020-06-04] MEDS: fentaNYL DRIP Premix 2,000 MCG/100 ML BAG IV SCH ×2 (06:51→22:09)
[2020-06-04 06:57] LABS: Alanine Aminotransferase 13 units/L (7-56)
[2020-06-04] MEDS: carvediloL 12.5 MG TAB PO SCH ×2 (09:00→23:52)
[2020-06-04] MEDS: QUEtiapine 200 MG TAB PO SCH ×2 (09:00→23:55)
[2020-06-04] MEDS: levETIRAcetam 500 MG TAB PO SCH ×2 (09:00→23:53)
[2020-06-04] MEDS: amLODIPine 10 MG TAB PO SCH (09:00)
[2020-06-04] MEDS: SENNOSIDES ORAL LIQD 8.8 MG/5 ML ORAL LIQD FEEDTUBE SCH ×2 (09:01→23:54)
[2020-06-04] MEDS: DEXAMETHASONE 4 MG TAB PO SCH (09:01)
[2020-06-04] MEDS: PANTOPRAZOLE 40 MG INJ IV SCH ×2 (09:01→23:53)
--- NOTE | 2020-06-04 09:13 | XRay Report ---
CHEST 1 VIEW INDICATION: follow up respiratory failure. COMPARISON: 06/03/2020 FINDINGS: Support devices: Unchanged. Heart: Stable cardiomegaly. Lungs/Pleura: Basilar pleural fluid with associated volume loss and superimposed edema remains. There is mild worsening. Additional findings: None. IMPRESSION: Mild worsening. Signer Name: Kendall Mcbride MD Signed: 06/04/2020 9:08 AM Workstation Name: [id number]
--- NOTE | 2020-06-04 10:36 | Progress Note ---
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 Well-preserved left ventricular systolic function. Conservative cardiac management. Subjective Date of service: 06/04/20 Principal diagnosis: Ac hypoxemic resp failure; COVID-19; pneumonia; CHF; Pulm HTN; OHS; DM II Interval history: Sinus rhythm on laboratory monitor. Objective Vital Signs Temp Pulse Pulse Resp BP Pulse Ox 06/04/20 09:10 67 17 173/103 95 06/04/20 09:00 83 13 218/104 92 06/04/20 08:50 78 10 L 218/104 95 06/04/20 08:40 82 12 248/102 96 06/04/20 08:30 82 12 247/95 95 06/04/20 08:20 85 11 L 247/95 95 06/04/20 08:10 86 10 L 157/71 87 06/04/20 08:00 54 L 54 L 16 157/71 93 06/04/20 07:56 97.9 F 06/04/20 07:50 54 L 16 157/69 94 06/04/20 07:40 54 L 16 161/70 94 06/04/20 07:30 53 L 16 161/71 92 06/04/20 07:20 53 L 16 161/70 94 06/04/20 07:10 52 L 16 160/70 95 06/04/20 07:00 52 L 16 160/70 95 06/04/20 06:50 53 L 16 155/69 95 06/04/20 06:40 52 L 16 147/66 95 06/04/20 06:30 52 L 16 147/66 94 06/04/20 06:20 53 L 16 145/67 94 06/04/20 06:10 54 L 16 148/70 94 06/04/20 06:00 58 L 16 160/77 94 06/04/20 05:50 65 12 160/77 99 06/04/20 05:49 67 160/77 06/04/20 05:40 76 11 L 261/112 93 06/04/20 05:30 76 8 L 213/117 92 06/04/20 05:20 84 11 L 213/117 93 06/04/20 05:10 91 H 11 L 225/104 95 06/04/20 05:00 98.5 F 95 H 11 L 196/109 94 06/04/20 04:50 89 18 225/104 96 06/04/20 04:44 87 94 06/04/20 04:40 53 L 16 165/71 96 06/04/20 04:30 52 L 16 165/71 95 06/04/20 04:20 52 L 17 164/74 95 06/04/20 04:10 53 L 16 163/74 95 06/04/20 04:00 97.8 F 53 L 52 L 16 163/74 95 06/04/20 03:50 54 L 17 165/77 96 06/04/20 03:40 55 L 16 178/79 96 06/04/20 03:30 55 L 16 178/79 96 06/04/20 03:20 53 L 16 165/70 95 06/04/20 03:10 53 L 16 164/71 95 06/04/20 03:00 54 L 16 160/71 94 06/04/20 02:50 54 L 16 164/71 94 06/04/20 02:40 53 L 16 158/69 93 06/04/20 02:30 54 L 16 158/69 93 06/04/20 02:20 54 L 16 160/71 92 06/04/20 02:10 54 L 16 161/72 92 06/04/20 02:00 54 L 16 163/71 93 06/04/20 01:50 53 L 16 161/72 93 06/04/20 01:40 53 L 16 161/70 92 06/04/20 01:30 54 L 16 161/70 93 06/04/20 01:20 54 L 16 166/72 93 06/04/20 01:10 54 L 16 167/71 95 06/04/20 01:00 54 L 16 165/72 95 06/04/20 00:50 54 L 16 169/72 96 06/04/20 00:40 54 L 16 165/72 96 06/04/20 00:30 54 L 16 165/72 95 06/04/20 00:20 55 L 16 165/73 95 06/04/20 00:10 54 L 16 161/73 95 06/04/20 00:00 98 F 54 L 54 L 16 161/73 94 06/03/20 23:50 54 L 16 160/73 95 06/03/20 23:40 54 L 16 158/72 95 06/03/20 23:30 55 L 16 158/72 95 06/03/20 23:20 55 L 16 157/71 95 06/03/20 23:10 55 L 16 156/68 95 06/03/20 23:02 55 L 16 156/68 95 06/03/20 23:00 55 L 16 156/68 95 06/03/20 22:50 56 L 16 156/68 95 06/03/20 22:40 56 L 16 158/69 95 06/03/20 22:30 57 L 16 158/69 95 06/03/20 22:20 56 L 16 162/69 94 06/03/20 22:10 57 L 16 150/75 95 06/03/20 22:00 58 L 16 150/75 94 06/03/20 21:54 62 154/71 06/03/20 21:53 64 154/71 06/03/20 21:52 67 154/71 06/03/20 21:50 61 16 154/71 96 06/03/20 21:40 59 L 12 165/73 95 06/03/20 21:30 55 L 16 165/73 95 06/03/20 21:20 55 L 16 166/70 95 06/03/20 21:10 55 L 16 166/73 95 06/03/20 21:00 57 L 16 169/77 95 06/03/20 20:50 57 L 16 168/75 95 06/03/20 20:48 57 L 165/75 95 06/03/20 20:40 58 L 16 165/74 95 06/03/20 20:30 57 L 16 164/76 95 06/03/20 20:20 56 L 16 164/76 95 06/03/20 20:10 56 L 16 96 06/03/20 20:00 97.4 F L 55 L 56 L 16 157/71 95 06/03/20 19:51 56 L 17 157/71 95 06/03/20 19:41 56 L 16 158/70 95 06/03/20 19:31 55 L 15 158/70 94 06/03/20 19:21 55 L 16 158/71 95 06/03/20 19:11 55 L 16 163/71 95 08/26/20 19:01 55 L 16 163/71 95 06/03/20 18:51 55 L 16 163/72 95 06/03/20 18:41 57 L 16 164/74 95 06/03/20 18:31 56 L 16 164/74 95 06/03/20 18:21 58 L 16 169/76 96 06/03/20 18:11 58 L 16 163/80 97 06/03/20 18:00 61 16 163/80 95 06/03/20 17:51 56 L 16 156/71 95 06/03/20 17:41 56 L 16 153/68 95 06/03/20 17:31 56 L 16 153/68 95 06/03/20 17:21 56 L 16 156/72 94 06/03/20 17:11 55 L 17 156/71 94 06/03/20 17:00 55 L 16 156/71 94 06/03/20 16:51 56 L 15 154/70 94 06/03/20 16:41 55 L 16 157/71 94 06/03/20 16:31 56 L 16 157/71 94 06/03/20 16:21 55 L 16 158/74 94 06/03/20 16:11 56 L 12 155/69 96 06/03/20 16:01 55 L 16 155/69 92 06/03/20 16:00 98.7 F 06/03/20 15:52 55 L 55 L 24 93 06/03/20 15:51 56 L 16 156/69 93 06/03/20 15:44 56 L 153/72 93 06/03/20 15:41 56 L 16 156/69 92 06/03/20 15:31 57 L 16 156/69 92 06/03/20 15:21 56 L 16 155/69 93 06/03/20 15:11 56 L 16 158/71 93 06/03/20 15:00 56 L 16 156/67 96 06/03/20 14:51 55 L 16 156/67 96 06/03/20 14:41 56 L 16 153/69 97 06/03/20 14:31 57 L 16 153/69 96 06/03/20 14:21 57 L 16 160/71 96 06/03/20 14:11 57 L 16 160/71 97 06/03/20 14:01 57 L 16 160/71 96 06/03/20 13:56 58 L 161/71 06/03/20 13:55 58 L 161/71 06/03/20 13:51 58 L 16 161/71 96 06/03/20 13:41 58 L 16 163/69 96 06/03/20 13:31 58 L 16 163/69 95 06/03/20 13:21 60 16 169/74 96 06/03/20 13:11 60 16 177/78 96 06/03/20 13:00 62 16 177/78 95 06/03/20 12:51 62 16 176/78 96 06/03/20 12:41 63 17 156/58 97 06/03/20 12:31 58 L 16 156/58 96 06/03/20 12:21 59 L 16 147/55 98 06/03/20 12:11 59 L 16 152/56 98 06/03/20 12:00 97.8 F 59 L 77 16 152/56 96 06/03/20 11:51 56 L 16 147/55 97 06/03/20 11:41 56 L 16 147/55 97 06/03/20 11:30 56 L 16 147/55 95 06/03/20 11:28 58 L 145/55 97 06/03/20 11:21 58 L 16 145/55 97 06/03/20 11:11 57 L 16 142/53 97 06/03/20 11:00 58 L 16 142/53 95 06/03/20 10:51 58 L 16 140/51 97 06/03/20 10:41 57 L 16 141/53 96 - Physical Examination Narrative exam: Deferred due to coronavirus isolation protocol. General: Other (intubated on the vent) Cardiac: Positive: Reg Rate and Rhythm - Labs and Meds Cardiac Enzymes 06/04/20 Range/Units 04:19 AST 11 (5-40) units/L Lactate Dehydrogenase 271 H (91-180) units/L CBC 06/04/20 Range/Units 04:19 WBC 10.5 (4.5-11.0) K/mm3 RBC 3.15 L (3.65-5.03) M/mm3 Hgb 8.9 L (10.1-14.3) gm/dl Hct 26.8 L D (30.3-42.9) % Plt Count 223 (140-440) K/mm3 Lymph # 0.6 L (1.2-5.4) K/mm3 [place] # 0.8 (0.0-0.8) K/mm3 Eos # 0.0 (0.0-0.4) K/mm3 Baso # 0.0 (0.0-0.1) K/mm3 Comprehensive Metabolic Panel 06/03/20 06/04/20 Range/Units 21:50 04:19 Sodium 135 L 136 L (137-145) mmol/L Potassium 5.0 D 4.4 (3.6-5.0) mmol/L Chloride 104.2 102.8 (98-107) mmol/L Carbon Dioxide 18 L 20 L (22-30) mmol/L BUN 73 H (7-17) mg/dL Creatinine 2.0 H (0.6-1.2) mg/dL Glucose 192 H (65-100) mg/dL Calcium 8.0 L (8.4-10.2) mg/dL AST 11 (5-40) units/L ALT 13 (7-56) units/L Alkaline Phosphatase 86 (35-129) units/L Total Protein 5.0 L (6.3-8.2) g/dL Albumin 2.0 L (3.9-5) g/dL - Allied health notes Allied health notes reviewed: RT (Pulmoanry edema with bilateral pleural effusions)
[2020-06-04] MEDS: HEPARIN/ 0.45% NACL DRIP 25,000 UNIT/500 ML BAG IV SCH (10:42)
--- NOTE | 2020-06-04 11:35 | Progress Note ---
Assessment and Plan Cultures: Coronavirus PCR: Positive 05/28/2020 blood culture: no growth 05/28/2020 tracheal aspirate: Usual respiratory bobo 05/28/2020 urine culture: No growth A/P: 64-year-old female with hypertension, diastolic CHF, pulmonary hypertension, diabetes, obesity hypoventilation syndrome was admitted to the emergency room after she called EMS due to difficulty breathing. On the way to the hospital, patient developed cardiac arrest and was treated as per ACLS protocol: #Bilateral pneumonia: Secondary to COVID-19. #Acute hypoxic respiratory failure: On mechanical ventilation. #Status post PEA arrest. #Mild LFT elevation: likely from COVID-19. #Mild AVANI Recs: IV/PO Dexamethasone 6 mg daily x 10 days, day 7 Completed 5 days of IV Remdesivir 06/02/2020 prophylactic anticoagulation based on d-dimer per protocol mild procal elevation is likely due to renal insufficiency, continue off antibiotics Mallory Wright MD, FACP [facility] ([facility]) C: [phone] O: [phone] F: [phone] Subjective Date of service: 06/04/20 Principal diagnosis: Ac hypoxemic resp failure; COVID-19; pneumonia; CHF; Pulm HTN; OHS; DM II Interval history: No fever. Remains stable, intubated, on the vent. Objective - Exam Narrative Exam: Physical Exam (reviewed in chart due to PPE conservation) Constitutional: intubated, sedated, on the vent Head, Ears, Nose: normocephalic, atraumatic Eyes: limited due to PPE conservation strategy Neck: intubated Oral: intubated Cardiovascular: limited due to PPE conservation strategy Respiratory: limited due to PPE conservation strategy GI: limited due to PPE conservation strategy Musculoskeletal: limited due to PPE conservation strategy Skin: limited due to PPE conservation strategy Hem/Lymphatic: limited due to PPE conservation strategy Psych: no agitation Neurological: sedated, intubated, on the vent, exam limited - Constitutional Vitals: Vital Signs Temp Pulse Resp BP Pulse Ox 97.9 F 53 L 18 134/69 97 06/04/20 07:56 06/04/20 10:40 06/04/20 10:40 06/04/20 10:40 06/04/20 10:40 Temperature -Last 24 Hours Temperature 97.9 F Temperature 98.5 F Temperature 97.8 F Temperature 98 F Temperature 97.4 F Temperature 98.7 F Temperature 97.8 F - Labs CBC & Chem 7: 06/04/20 04:19 06/04/20 04:19 Labs: Abnormal lab results 05/28/20 06/03/20 06/03/20 Range/Units 20:41 11:58 18:24 RBC (3.65-5.03) M/mm3 Hgb (10.1-14.3) gm/dl Hct (30.3-42.9) % RDW (13.2-15.2) % Lymph % (Auto) (13.4-35.0) % Lymph # (1.2-5.4) K/mm3 Seg Neutrophils % (40.0-70.0) % Seg Neutrophils # (1.8-7.7) K/mm3 D-Dimer (0-234) ng/mlDDU ABG pH (7.350-7.450) pH Units ABG Base Excess (-2.0-3.0) mmol/L ABG Hemoglobin (12.0-16.0) gm/dl Oxyhemoglobin (95.0-99.0) % Sodium (137-145) mmol/L Carbon Dioxide (22-30) mmol/L BUN (7-17) mg/dL Creatinine (0.6-1.2) mg/dL Glucose (65-100) mg/dL POC Glucose 225 H 163 H 211 H (70-105) Calcium (8.4-10.2) mg/dL Lactate Dehydrogenase (91-180) units/L C-Reactive Protein (0.00-1.30) mg/dL Total Protein (6.3-8.2) g/dL Albumin (3.9-5) g/dL Urine WBC (Auto) (0.0-6.0) /HPF 06/03/20 06/03/20 06/04/20 Range/Units 21:50 Unknown 00:26 RBC (3.65-5.03) M/mm3 Hgb (10.1-14.3) gm/dl Hct (30.3-42.9) % RDW (13.2-15.2) % Lymph % (Auto) (13.4-35.0) % Lymph # (1.2-5.4) K/mm3 Seg Neutrophils % (40.0-70.0) % Seg Neutrophils # (1.8-7.7) K/mm3 D-Dimer (0-234) ng/mlDDU ABG pH (7.350-7.450) pH Units ABG Base Excess (-2.0-3.0) mmol/L ABG Hemoglobin (12.0-16.0) gm/dl Oxyhemoglobin (95.0-99.0) % Sodium 135 L (137-145) mmol/L Carbon Dioxide 18 L (22-30) mmol/L BUN (7-17) mg/dL Creatinine (0.6-1.2) mg/dL Glucose (65-100) mg/dL POC Glucose 241 H (70-105) Calcium (8.4-10.2) mg/dL Lactate Dehydrogenase (91-180) units/L C-Reactive Protein (0.00-1.30) mg/dL Total Protein (6.3-8.2) g/dL Albumin (3.9-5) g/dL Urine WBC (Auto) 11.0 H (0.0-6.0) /HPF 06/04/20 06/04/20 06/04/20 Range/Units 03:35 04:19 04:19 RBC 3.15 L (3.65-5.03) M/mm3 Hgb 8.9 L (10.1-14.3) gm/dl Hct 26.8 L D (30.3-42.9) % RDW 15.9 H (13.2-15.2) % Lymph % (Auto) 6.0 L (13.4-35.0) % Lymph # 0.6 L (1.2-5.4) K/mm3 Seg Neutrophils % 86.6 H (40.0-70.0) % Seg Neutrophils # 9.1 H (1.8-7.7) K/mm3 D-Dimer (0-234) ng/mlDDU ABG pH 7.331 L (7.350-7.450) pH Units ABG Base Excess -4.7 L (-2.0-3.0) mmol/L ABG Hemoglobin 11.0 L (12.0-16.0) gm/dl Oxyhemoglobin 93.9 L (95.0-99.0) % Sodium 136 L (137-145) mmol/L Carbon Dioxide 20 L (22-30) mmol/L BUN 73 H (7-17) mg/dL Creatinine 2.0 H (0.6-1.2) mg/dL Glucose 192 H (65-100) mg/dL POC Glucose (70-105) Calcium 8.0 L (8.4-10.2) mg/dL Lactate Dehydrogenase 271 H (91-180) units/L C-Reactive Protein 2.20 H (0.00-1.30) mg/dL Total Protein 5.0 L (6.3-8.2) g/dL Albumin 2.0 L (3.9-5) g/dL Urine WBC (Auto) (0.0-6.0) /HPF 06/04/20 06/04/20 Range/Units 04:19 05:51 RBC (3.65-5.03) M/mm3 Hgb (10.1-14.3) gm/dl Hct (30.3-42.9) % RDW (13.2-15.2) % Lymph % (Auto) (13.4-35.0) % Lymph # (1.2-5.4) K/mm3 Seg Neutrophils % (40.0-70.0) % Seg Neutrophils # (1.8-7.7) K/mm3 D-Dimer 414.52 H (0-234) ng/mlDDU ABG pH (7.350-7.450) pH Units ABG Base Excess (-2.0-3.0) mmol/L ABG Hemoglobin (12.0-16.0) gm/dl Oxyhemoglobin (95.0-99.0) % Sodium (137-145) mmol/L Carbon Dioxide (22-30) mmol/L BUN (7-17) mg/dL Creatinine (0.6-1.2) mg/dL Glucose (65-100) mg/dL POC Glucose 179 H (70-105) Calcium (8.4-10.2) mg/dL Lactate Dehydrogenase (91-180) units/L C-Reactive Protein (0.00-1.30) mg/dL Total Protein (6.3-8.2) g/dL Albumin (3.9-5) g/dL Urine WBC (Auto) (0.0-6.0) /HPF - Imaging and cardiology Chest x-ray: report reviewed, image reviewed (diffuse bilateral edema and airspace disease)
--- NOTE | 2020-06-04 12:44 | Progress Note ---
Assessment and Plan Acute hypoxemic respiratory failure on MVS Coronavirus-19 infection. Bilateral pulmonary infiltrates, bilateral pneumonia plus likely element of Pulmonary edema. Bilateral pulmonary edema. Bilateral pleural effusions. History of congestive heart failure. Morbid obesity. History of pulmonary hypertension. History of hypertension. Diabetes. Obesity hypoventilation syndrome. Elevated serum inflammatory markers to include D-dimers and LDH levels. Hyperkalemia at presentation. Metabolic acidosis. Oropharyngeal dysphagia. - repeat BMP in am +/- nephrology consultation - strict I's and O's - continue care as below otherwise; - continue Daily SAT and SBT assessment as tolerated - continue to wean supplemental oxygen for target O2 sat's > 90% acutely - VAP bundle addressed - continue lung protective strategies - continue bronchodilators with pulmonary hygiene per RT - wean per pulmonary driven protocols otherwise - continue accuchecks resumed with glycemic control per SSI (While critically i ll target blood glucose of 140-180 mg/dL; avoid hypoglycemia) - sedation prn for target RASS 0 to -1 - continue to avoid benzodiazepine's, reduce the possibility of delirium - completed AB's per ID rec's - prn analgesia per CPOT score - Maintenance of sleep-wake cycle, avoid delirium - continue enteral nutritional support at goal rate as tolerated - G.I. & VTE prophylaxis - PT/OT/ROM exercises - continue mobility protocols for pressure ulcer prophylaxis - Monitor hemodynamics closely - continue other care per attending / other consultants - discharge planning ongoing concurrently .... Re-evaluate in am & prn CONDITION: CRITICAL PROGNOSIS: GUARDED CODE STATUS: FULL CODE The high probability of a clinically significant, sudden or life-threatening deterioration of the [respiratory, cardiovascular, renal & neurologic] system(s) required my full and direct attention, intervention and personal management. The aggregate critical care time was [36] minutes without overlap. Time includes spe nt on; [x] Data Review and interpretation [x] Patient assessment and monitoring of vital signs [x] Documentation [x] Medication orders and management Subjective Date of service: 06/04/20 Principal diagnosis: Ac hypoxemic resp failure; COVID-19; pneumonia; CHF; Pulm HTN; OHS; DM II Interval history: Patient is seen today for: Ac hypoxemic resp failure; Coronavirus-19 infection; pneumonia; Pulmonary edema; Bilateral pleural effusions; CHF; Morbid obesity; pulmonary hypertension; OHS; DM II Seen and examined at bedside; 24hour events reviewed; nursing and respiratory care staff consulted; no adverse overnight events reported to me; resting peacef ully in bed; failed bedside SBT with apnea's and quick desaturation; AMS is persistent; no emesis or overt aspiration Objective Vital Signs - 12hr 06/04/20 06/04/20 06/04/20 00:50 01:00 01:10 Temperature Pulse Rate 54 L 54 L 54 L Pulse Rate [ From Monitor] Respiratory 16 16 16 Rate Blood Pressure 169/72 165/72 167/71 O2 Sat by Pulse 96 95 95 Oximetry 06/04/20 06/04/20 06/04/20 01:20 01:30 01:40 Temperature Pulse Rate 54 L 54 L 53 L Pulse Rate [ From Monitor] Respiratory 16 16 16 Rate Blood Pressure 166/72 161/70 161/70 O2 Sat by Pulse 93 93 92 Oximetry 06/04/20 06/04/20 06/04/20 01:50 02:00 02:10 Temperature Pulse Rate 53 L 54 L 54 L Pulse Rate [ From Monitor] Respiratory 16 16 16 Rate Blood Pressure 161/72 163/71 161/72 O2 Sat by Pulse 93 93 92 Oximetry 06/04/20 06/04/20 06/04/20 02:20 02:30 02:40 Temperature Pulse Rate 54 L 54 L 53 L Pulse Rate [ From Monitor] Respiratory 16 16 16 Rate Blood Pressure 160/71 158/69 158/69 O2 Sat by Pulse 92 93 93 Oximetry 06/04/20 06/04/20 06/04/20 02:50 03:00 03:10 Temperature Pulse Rate 54 L 54 L 53 L Pulse Rate [ From Monitor] Respiratory 16 16 16 Rate Blood Pressure 164/71 160/71 164/71 O2 Sat by Pulse 94 94 95 Oximetry 06/04/20 06/04/20 06/04/20 03:20 03:30 03:40 Temperature Pulse Rate 53 L 55 L 55 L Pulse Rate [ From Monitor] Respiratory 16 16 16 Rate Blood Pressure 165/70 178/79 178/79 O2 Sat by Pulse 95 96 96 Oximetry 06/04/20 06/04/20 06/04/20 03:50 04:00 04:10 Temperature 97.8 F Pulse Rate 54 L 53 L 53 L Pulse Rate [ 52 L From Monitor] Respiratory 17 16 16 Rate Blood Pressure 165/77 163/74 163/74 O2 Sat by Pulse 96 95 95 Oximetry 06/04/20 06/04/20 06/04/20 04:20 04:30 04:40 Temperature Pulse Rate 52 L 52 L 53 L Pulse Rate [ From Monitor] Respiratory 17 16 16 Rate Blood Pressure 164/74 165/71 165/71 O2 Sat by Pulse 95 95 96 Oximetry 06/04/20 06/04/20 06/04/20 04:44 04:50 05:00 Temperature 98.5 F Pulse Rate 87 89 95 H Pulse Rate [ From Monitor] Respiratory 18 11 L Rate Blood Pressure 225/104 196/109 O2 Sat by Pulse 94 96 94 Oximetry 06/04/20 06/04/20 06/04/20 05:10 05:20 05:30 Temperature Pulse Rate 91 H 84 76 Pulse Rate [ From Monitor] Respiratory 11 L 11 L 8 L Rate Blood Pressure 225/104 213/117 213/117 O2 Sat by Pulse 95 93 92 Oximetry 06/04/20 06/04/20 06/04/20 05:40 05:49 05:50 Temperature Pulse Rate 76 67 65 Pulse Rate [ From Monitor] Respiratory 11 L 12 Rate Blood Pressure 261/112 160/77 160/77 O2 Sat by Pulse 93 99 Oximetry 06/04/20 06/04/20 06/04/20 06:00 06:10 06:20 Temperature Pulse Rate 58 L 54 L 53 L Pulse Rate [ From Monitor] Respiratory 16 16 16 Rate Blood Pressure 160/77 148/70 145/67 O2 Sat by Pulse 94 94 94 Oximetry 06/04/20 06/04/20 06/04/20 06:30 06:40 06:50 Temperature Pulse Rate 52 L 52 L 53 L Pulse Rate [ From Monitor] Respiratory 16 16 16 Rate Blood Pressure 147/66 147/66 155/69 O2 Sat by Pulse 94 95 95 Oximetry 06/04/20 06/04/20 06/04/20 07:00 07:10 07:20 Temperature Pulse Rate 52 L 52 L 53 L Pulse Rate [ From Monitor] Respiratory 16 16 16 Rate Blood Pressure 160/70 160/70 161/70 O2 Sat by Pulse 95 95 94 Oximetry 06/04/20 06/04/20 06/04/20 07:30 07:40 07:50 Temperature Pulse Rate 53 L 54 L 54 L Pulse Rate [ From Monitor] Respiratory 16 16 16 Rate Blood Pressure 161/71 161/70 157/69 O2 Sat by Pulse 92 94 94 Oximetry 06/04/20 06/04/20 06/04/20 07:56 08:00 08:10 Temperature 97.9 F Pulse Rate 54 L 86 Pulse Rate [ 54 L From Monitor] Respiratory 16 10 L Rate Blood Pressure 157/71 157/71 O2 Sat by Pulse 93 87 Oximetry 06/04/20 06/04/20 06/04/20 08:20 08:30 08:40 Temperature Pulse Rate 85 82 82 Pulse Rate [ From Monitor] Respiratory 11 L 12 12 Rate Blood Pressure 247/95 247/95 248/102 O2 Sat by Pulse 95 95 96 Oximetry 06/04/20 06/04/20 06/04/20 08:50 09:00 09:10 Temperature Pulse Rate 78 83 67 Pulse Rate [ From Monitor] Respiratory 10 L 13 17 Rate Blood Pressure 218/104 218/104 173/103 O2 Sat by Pulse 95 92 95 Oximetry 06/04/20 06/04/20 06/04/20 09:20 09:30 09:40 Temperature Pulse Rate 63 58 L 57 L Pulse Rate [ From Monitor] Respiratory 14 14 15 Rate Blood Pressure 129/81 128/67 128/67 O2 Sat by Pulse 94 95 Oximetry 06/04/20 06/04/20 06/04/20 09:50 10:00 10:10 Temperature Pulse Rate 56 L 55 L 55 L Pulse Rate [ From Monitor] Respiratory 9 L 20 10 L Rate Blood Pressure 125/63 126/63 126/63 O2 Sat by Pulse 94 95 96 Oximetry 06/04/20 06/04/20 06/04/20 10:20 10:30 10:40 Temperature Pulse Rate 54 L 53 L 53 L Pulse Rate [ From Monitor] Respiratory 9 L 11 L 18 Rate Blood Pressure 123/70 134/69 134/69 O2 Sat by Pulse 95 97 97 Oximetry 06/04/20 06/04/20 06/04/20 10:50 11:00 11:10 Temperature Pulse Rate 54 L 52 L 53 L Pulse Rate [ From Monitor] Respiratory 12 15 19 Rate Blood Pressure 132/67 134/69 134/69 O2 Sat by Pulse 95 95 97 Oximetry 06/04/20 06/04/20 06/04/20 11:20 11:30 11:36 Temperature Pulse Rate 52 L 51 L 51 L Pulse Rate [ From Monitor] Respiratory 8 L 16 Rate Blood Pressure 134/69 132/62 O2 Sat by Pulse 95 92 Oximetry 06/04/20 06/04/20 06/04/20 11:40 11:50 12:00 Temperature 97.6 F Pulse Rate 51 L 52 L 52 L Pulse Rate [ 52 L From Monitor] Respiratory 16 16 15 Rate Blood Pressure 132/62 145/74 146/68 O2 Sat by Pulse 93 92 93 Oximetry 06/04/20 12:10 Temperature Pulse Rate 52 L Pulse Rate [ From Monitor] Respiratory 16 Rate Blood Pressure 146/68 O2 Sat by Pulse 93 Oximetry Constitutional: no acute distress, other (elderly looking obese female riding set rate on MVS at rest) Eyes: non-icteric ENT: oropharynx moist, other (ETT 23 cm AYAN) Neck: supple, no lymphadenopathy, no JVD, other (ETT 23 cm AYAN) Effort: mildly labored Ascultation: Bilateral: diminished breath sounds, rhonchi Percussion: Bilateral: not dull Cardiovascular: regular rate and rhythm Gastrointestinal: normoactive bowel sounds, soft, non-tender, non-distended Integumentary: normal Extremities: no cyanosis, no edema, pink and warm, pulses normal, no ischemia or petechiae Neurologic: non-focal exam (grossly), pupils equal and round, unable to assess Psychiatric: other (unable to assess re: AMS) CBC and BMP: 06/05/20 07:25 06/05/20 07:25 ABG, PT/INR, D-dimer: ABG ABG pH 7.331 pH Units (7.350-7.450) L 06/04/20 03:35 ABG pCO2 40.4 mm Hg 06/04/20 03:35 ABG pO2 82.9 mm Hg (80.0-90.0) 06/04/20 03:35 ABG O2 Saturation 95.8 % (95.0-99.0) 06/04/20 03:35 PT/INR, D-dimer PT 14.2 Sec. (12.2-14.9) 05/29/20 15:10 INR 1.08 (0.87-1.13) 05/29/20 15:10 D-Dimer 414.52 ng/mlDDU (0-234) H 06/04/20 04:19 Abnormal lab findings: Abnormal Labs 05/28/20 05/28/20 05/28/20 13:29 13:47 13:47 WBC RBC Hgb Hct RDW 15.3 H Lymph % (Auto) Lymph # Seg Neutrophils % Seg Neutrophils # D-Dimer Heparin Anti-Xa Level ABG pH ABG pO2 ABG HCO3 ABG O2 Saturation ABG Base Excess ABG Hemoglobin VBG pH Oxyhemoglobin Sodium Potassium 6.6 H* Chloride 109.2 H Carbon Dioxide 17 L BUN 29 H Creatinine 1.3 H Glucose 265 H POC Glucose 248 H Lactic Acid Calcium 8.1 L AST 63 H Lactate Dehydrogenase Total Creatine Kinase 301 H CK-MB (CK-2) 4.3 H C-Reactive Protein Total Protein 5.4 L Albumin 2.6 L Urine WBC (Auto) Coronavirus (PCR) 05/28/20 05/28/20 05/28/20 13:47 13:47 14:46 WBC RBC Hgb Hct RDW Lymph % (Auto) Lymph # Seg Neutrophils % Seg Neutrophils # D-Dimer Heparin Anti-Xa Level ABG pH ABG pO2 ABG HCO3 ABG O2 Saturation ABG Base Excess ABG Hemoglobin VBG pH 7.152 L* Oxyhemoglobin Sodium Potassium 7.2 H* Chloride Carbon Dioxide BUN Creatinine Glucose POC Glucose Lactic Acid 3.40 H* Calcium AST Lactate Dehydrogenase Total Creatine Kinase CK-MB (CK-2) C-Reactive Protein Total Protein Albumin Urine WBC (Auto) Coronavirus (PCR) 05/28/20 05/28/20 05/28/20 15:33 15:33 15:51 WBC RBC Hgb Hct RDW Lymph % (Auto) Lymph # Seg Neutrophils % Seg Neutrophils # D-Dimer 8780.43 H Heparin Anti-Xa Level ABG pH 7.284 L ABG pO2 273.0 H ABG HCO3 ABG O2 Saturation 99.4 H ABG Base Excess -6.1 L ABG Hemoglobin 17.2 H VBG pH Oxyhemoglobin Sodium Potassium Chloride Carbon Dioxide BUN Creatinine Glucose 152 H POC Glucose Lactic Acid Calcium AST Lactate Dehydrogenase 365 H Total Creatine Kinase CK-MB (CK-2) C-Reactive Protein Total Protein Albumin Urine WBC (Auto) Coronavirus (PCR) 05/28/20 05/28/20 05/28/20 16:30 20:41 23:20 WBC RBC Hgb Hct RDW Lymph % (Auto) Lymph # Seg Neutrophils % Seg Neutrophils # D-Dimer Heparin Anti-Xa Level ABG pH ABG pO2 ABG HCO3 ABG O2 Saturation ABG Base Excess ABG Hemoglobin VBG pH Oxyhemoglobin Sodium Potassium Chloride Carbon Dioxide BUN Creatinine Glucose POC Glucose 225 H 224 H Lactic Acid Calcium AST Lactate Dehydrogenase Total Creatine Kinase CK-MB (CK-2) C-Reactive Protein Total Protein Albumin Urine WBC (Auto) 17.0 H Coronavirus (PCR) 05/28/20 05/29/20 05/29/20 Unknown 04:35 04:43 WBC RBC 3.48 L Hgb 9.8 L Hct 29.4 L RDW 16.0 H Lymph % (Auto) 7.4 L Lymph # 0.7 L Seg Neutrophils % 89.1 H Seg Neutrophils # 8.1 H D-Dimer Heparin Anti-Xa Level ABG pH ABG pO2 ABG HCO3 19.3 L ABG O2 Saturation ABG Base Excess -4.5 L ABG Hemoglobin 9.7 L VBG pH Oxyhemoglobin Sodium Potassium Chloride Carbon Dioxide BUN Creatinine Glucose POC Glucose Lactic Acid Calcium AST Lactate Dehydrogenase Total Creatine Kinase CK-MB (CK-2) C-Reactive Protein Total Protein Albumin Urine WBC (Auto) Coronavirus (PCR) Positive A 05/29/20 05/29/20 05/29/20 04:43 15:10 17:17 WBC RBC Hgb 9.3 L Hct 28.7 L RDW Lymph % (Auto) Lymph # Seg Neutrophils % Seg Neutrophils # D-Dimer Heparin Anti-Xa Level ABG pH ABG pO2 ABG HCO3 ABG O2 Saturation ABG Base Excess ABG Hemoglobin VBG pH Oxyhemoglobin Sodium Potassium Chloride 110.2 H Carbon Dioxide 18 L BUN 32 H Creatinine 1.4 H Glucose 180 H POC Glucose 147 H Lactic Acid Calcium AST Lactate Dehydrogenase Total Creatine Kinase CK-MB (CK-2) C-Reactive Protein Total Protein Albumin Urine WBC (Auto) Coronavirus (PCR) 05/30/20 05/30/20 05/30/20 00:08 00:12 04:15 WBC RBC Hgb Hct RDW Lymph % (Auto) Lymph # Seg Neutrophils % Seg Neutrophils # D-Dimer Heparin Anti-Xa Level 0.71 H ABG pH 7.460 H ABG pO2 106.0 H ABG HCO3 18.9 L ABG O2 Saturation ABG Base Excess -4.4 L ABG Hemoglobin 6.8 L VBG pH Oxyhemoglobin Sodium Potassium Chloride Carbon Dioxide BUN Creatinine Glucose POC Glucose 195 H Lactic Acid Calcium AST Lactate Dehydrogenase Total Creatine Kinase CK-MB (CK-2) C-Reactive Protein Total Protein Albumin Urine WBC (Auto) Coronavirus (PCR) 05/30/20 05/30/20 05/30/20 06:07 08:37 12:33 WBC RBC Hgb Hct RDW Lymph % (Auto) Lymph # Seg Neutrophils % Seg Neutrophils # D-Dimer Heparin Anti-Xa Level 0.85 H ABG pH ABG pO2 ABG HCO3 ABG O2 Saturation ABG Base Excess ABG Hemoglobin VBG pH Oxyhemoglobin Sodium Potassium Chloride Carbon Dioxide BUN Creatinine Glucose POC Glucose 182 H 187 H Lactic Acid Calcium AST Lactate Dehydrogenase Total Creatine Kinase CK-MB (CK-2) C-Reactive Protein Total Protein Albumin Urine WBC (Auto) Coronavirus (PCR) 05/30/20 05/30/20 05/30/20 15:58 17:57 23:36 WBC RBC Hgb Hct RDW Lymph % (Auto) Lymph # Seg Neutrophils % Seg Neutrophils # D-Dimer Heparin Anti-Xa Level 1.03 H ABG pH ABG pO2 ABG HCO3 ABG O2 Saturation ABG Base Excess ABG Hemoglobin VBG pH Oxyhemoglobin Sodium Potassium Chloride Carbon Dioxide BUN Creatinine Glucose POC Glucose 208 H 185 H Lactic Acid Calcium AST Lactate Dehydrogenase Total Creatine Kinase CK-MB (CK-2) C-Reactive Protein Total Protein Albumin Urine WBC (Auto) Coronavirus (PCR) 05/31/20 05/31/20 05/31/20 02:16 03:55 06:16 WBC RBC Hgb 9.2 L Hct 27.5 L RDW Lymph % (Auto) Lymph # Seg Neutrophils % Seg Neutrophils # D-Dimer Heparin Anti-Xa Level ABG pH ABG pO2 94.7 H ABG HCO3 18.6 L ABG O2 Saturation ABG Base Excess -5.5 L ABG Hemoglobin 7.9 L VBG pH Oxyhemoglobin Sodium Potassium Chloride Carbon Dioxide BUN Creatinine Glucose POC Glucose 160 H Lactic Acid Calcium AST Lactate Dehydrogenase Total Creatine Kinase CK-MB (CK-2) C-Reactive Protein Total Protein Albumin Urine WBC (Auto) Coronavirus (PCR) 05/31/20 05/31/20 05/31/20 12:20 13:03 18:13 WBC RBC Hgb Hct RDW Lymph % (Auto) Lymph # Seg Neutrophils % Seg Neutrophils # D-Dimer Heparin Anti-Xa Level ABG pH ABG pO2 ABG HCO3 ABG O2 Saturation ABG Base Excess ABG Hemoglobin VBG pH Oxyhemoglobin Sodium Potassium Chloride Carbon Dioxide 18 L BUN 48 H Creatinine 1.6 H Glucose 115 H POC Glucose 128 H 159 H Lactic Acid Calcium 8.3 L AST Lactate Dehydrogenase Total Creatine Kinase CK-MB (CK-2) C-Reactive Protein Total Protein 5.4 L Albumin 2.4 L Urine WBC (Auto) Coronavirus (PCR) 05/31/20 06/01/20 06/01/20 23:51 04:00 05:48 WBC RBC Hgb Hct RDW Lymph % (Auto) Lymph # Seg Neutrophils % Seg Neutrophils # D-Dimer Heparin Anti-Xa Level ABG pH ABG pO2 109.8 H ABG HCO3 18.8 L ABG O2 Saturation ABG Base Excess -5.9 L ABG Hemoglobin 7.8 L VBG pH Oxyhemoglobin Sodium Potassium Chloride Carbon Dioxide BUN Creatinine Glucose POC Glucose 171 H 133 H Lactic Acid Calcium AST Lactate Dehydrogenase Total Creatine Kinase CK-MB (CK-2) C-Reactive Protein Total Protein Albumin Urine WBC (Auto) Coronavirus (PCR) 06/01/20 06/01/20 06/02/20 12:28 17:29 00:08 WBC RBC Hgb Hct RDW Lymph % (Auto) Lymph # Seg Neutrophils % Seg Neutrophils # D-Dimer Heparin Anti-Xa Level ABG pH ABG pO2 ABG HCO3 ABG O2 Saturation ABG Base Excess ABG Hemoglobin VBG pH Oxyhemoglobin Sodium Potassium Chloride Carbon Dioxide BUN Creatinine Glucose POC Glucose 199 H 209 H 162 H Lactic Acid Calcium AST Lactate Dehydrogenase Total Creatine Kinase CK-MB (CK-2) C-Reactive Protein Total Protein Albumin Urine WBC (Auto) Coronavirus (PCR) 06/02/20 06/02/20 06/02/20 04:20 04:20 04:44 WBC RBC Hgb 10.0 L Hct RDW Lymph % (Auto) Lymph # Seg Neutrophils % Seg Neutrophils # D-Dimer Heparin Anti-Xa Level 0.10 L ABG pH ABG pO2 150.6 H ABG HCO3 ABG O2 Saturation ABG Base Excess -4.1 L ABG Hemoglobin 11.8 L VBG pH Oxyhemoglobin Sodium Potassium Chloride Carbon Dioxide BUN Creatinine Glucose POC Glucose Lactic Acid Calcium AST Lactate Dehydrogenase Total Creatine Kinase CK-MB (CK-2) C-Reactive Protein Total Protein Albumin Urine WBC (Auto) Coronavirus (PCR) 06/02/20 06/02/20 06/02/20 05:53 12:04 13:49 WBC RBC Hgb Hct RDW Lymph % (Auto) Lymph # Seg Neutrophils % Seg Neutrophils # D-Dimer Heparin Anti-Xa Level 0.28 L ABG pH ABG pO2 ABG HCO3 ABG O2 Saturation ABG Base Excess ABG Hemoglobin VBG pH Oxyhemoglobin Sodium Potassium Chloride Carbon Dioxide BUN Creatinine Glucose POC Glucose 149 H 220 H Lactic Acid Calcium AST Lactate Dehydrogenase Total Creatine Kinase CK-MB (CK-2) C-Reactive Protein Total Protein Albumin Urine WBC (Auto) Coronavirus (PCR) 06/02/20 06/02/20 06/03/20 13:49 18:31 00:42 WBC RBC Hgb Hct RDW Lymph % (Auto) Lymph # Seg Neutrophils % Seg Neutrophils # D-Dimer 769.68 H Heparin Anti-Xa Level ABG pH ABG pO2 ABG HCO3 ABG O2 Saturation ABG Base Excess ABG Hemoglobin VBG pH Oxyhemoglobin Sodium Potassium Chloride Carbon Dioxide BUN Creatinine Glucose POC Glucose 225 H 212 H Lactic Acid Calcium AST Lactate Dehydrogenase Total Creatine Kinase CK-MB (CK-2) C-Reactive Protein Total Protein Albumin Urine WBC (Auto) Coronavirus (PCR) 06/03/20 06/03/20 06/03/20 05:16 05:16 05:25 WBC 11.4 H RBC Hgb Hct RDW 16.4 H Lymph % (Auto) Lymph # Seg Neutrophils % Seg Neutrophils # D-Dimer Heparin Anti-Xa Level ABG pH ABG pO2 160.9 H ABG HCO3 19.4 L ABG O2 Saturation ABG Base Excess -4.9 L ABG Hemoglobin 7.0 L VBG pH Oxyhemoglobin Sodium Potassium Chloride Carbon Dioxide 18 L BUN 65 H Creatinine 2.0 H Glucose 175 H POC Glucose Lactic Acid Calcium 8.0 L AST Lactate Dehydrogenase Total Creatine Kinase CK-MB (CK-2) C-Reactive Protein Total Protein 5.5 L Albumin 2.2 L Urine WBC (Auto) Coronavirus (PCR) 06/03/20 06/03/20 06/03/20 06:07 11:58 18:24 WBC RBC Hgb Hct RDW Lymph % (Auto) Lymph # Seg Neutrophils % Seg Neutrophils # D-Dimer Heparin Anti-Xa Level ABG pH ABG pO2 ABG HCO3 ABG O2 Saturation ABG Base Excess ABG Hemoglobin VBG pH Oxyhemoglobin Sodium Potassium Chloride Carbon Dioxide BUN Creatinine Glucose POC Glucose 177 H 163 H 211 H Lactic Acid Calcium AST Lactate Dehydrogenase Total Creatine Kinase CK-MB (CK-2) C-Reactive Protein Total Protein Albumin Urine WBC (Auto) Coronavirus (PCR) 06/03/20 06/03/20 06/04/20 21:50 Unknown 00:26 WBC RBC Hgb Hct RDW Lymph % (Auto) Lymph # Seg Neutrophils % Seg Neutrophils # D-Dimer Heparin Anti-Xa Level ABG pH ABG pO2 ABG HCO3 ABG O2 Saturation ABG Base Excess ABG Hemoglobin VBG pH Oxyhemoglobin Sodium 135 L Potassium Chloride Carbon Dioxide 18 L BUN Creatinine Glucose POC Glucose 241 H Lactic Acid Calcium AST Lactate Dehydrogenase Total Creatine Kinase CK-MB (CK-2) C-Reactive Protein Total Protein Albumin Urine WBC (Auto) 11.0 H Coronavirus (PCR) 06/04/20 06/04/20 06/04/20 03:35 04:19 04:19 WBC RBC 3.15 L Hgb 8.9 L Hct 26.8 L D RDW 15.9 H Lymph % (Auto) 6.0 L Lymph # 0.6 L Seg Neutrophils % 86.6 H Seg Neutrophils # 9.1 H D-Dimer Heparin Anti-Xa Level ABG pH 7.331 L ABG pO2 ABG HCO3 ABG O2 Saturation ABG Base Excess -4.7 L ABG Hemoglobin 11.0 L VBG pH Oxyhemoglobin 93.9 L Sodium 136 L Potassium Chloride Carbon Dioxide 20 L BUN 73 H Creatinine 2.0 H Glucose 192 H POC Glucose Lactic Acid Calcium 8.0 L AST Lactate Dehydrogenase 271 H Total Creatine Kinase CK-MB (CK-2) C-Reactive Protein 2.20 H Total Protein 5.0 L Albumin 2.0 L Urine WBC (Auto) Coronavirus (PCR) 06/04/20 06/04/20 04:19 05:51 WBC RBC Hgb Hct RDW Lymph % (Auto) Lymph # Seg Neutrophils % Seg Neutrophils # D-Dimer 414.52 H Heparin Anti-Xa Level ABG pH ABG pO2 ABG HCO3 ABG O2 Saturation ABG Base Excess ABG Hemoglobin VBG pH Oxyhemoglobin Sodium Potassium Chloride Carbon Dioxide BUN Creatinine Glucose POC Glucose 179 H Lactic Acid Calcium AST Lactate Dehydrogenase Total Creatine Kinase CK-MB (CK-2) C-Reactive Protein Total Protein Albumin Urine WBC (Auto) Coronavirus (PCR) Chest x-ray: image reviewed (bibasilar infiltrates / small effusions) Allied health notes reviewed: nursing
--- NOTE | 2020-06-04 20:23 | Progress Note ---
Assessment and Plan Assessment and plan: 64 YO Female with a medical history of HTN, Diastolic CHF, Pulmonary HTN, DM, Obesity Hypoventilation Syndrome presents to ED for evaluation of shortness of breath. Patients history taken from EMS staff, ED staff. As per staff, the EMS was notified for difficulty breathing. Upon arrival to the patient's home the patient was found to be in distress and was subsequently transported to [facility] for further evaluation and care. In route to [facility] the patient developed cardiac arrest and was treated in accordance with ACLS protocol with return of ROSC Patient was seen and evaluated in the emergency department and was found to have acute hypoxemic respiratory failure status post cardiac arrest. Patient was intubated and placed on ventilatory support. Patient admitted to ICU due to increased risk of decompensation. Critical care team consulted in ED. She was found to have COVID-19 iinfection and was started on steroids and remdesivir. ID was consulted. Cardiology was consulted for her systolic heart failure and cardiac arrest. 06/01. Patient remains intubated and on ventilatory support today. Patient has multiple organ system failure and has poor prognosis. Patient did not experience significant medical decompensation overnight but no improvement with current therapy. 06/02. Remains intubated. her BP is elevated. Started on nicardipine drip. Cardiology following. 06/03-06/04. BP is better. Hb stable. Completed remdesivir. ID , Cardiology and Critical care team on board Patient Problems (1) Acute hypoxemic respiratory failure Current Visit: Yes Status: Acute Plan to address problem: From COVID-19 viral infection Patient intubated, sedated and on ventilatory support. Critical care team on board The high probability of a clinically significant, sudden or life threatening deterioration of the [pulmonary, renal, cardiac, neuro] system(s) required my full and direct attention, intervention and personal management. The aggregate critical care time was [90] minutes. This time is in addition to time spent performing reported procedures but includes the following: [x] Data Review and interpretation [x] Patient assessment and monitoring of vital signs [x] Documentation [x] Medication orders and management (2) Cardiac arrest Current Visit: Yes Status: Acute Plan to address problem: Cardiology team on board Conservative management as per cardiology (3) Acute renal failure Current Visit: Yes Status: Acute Plan to address problem: Stable Monitor UO Strict I/O Avoid ACEI and other nephrotoxic medications (4) Coronavirus infection Current Visit: Yes Status: Acute Plan to address problem: Completed remdesivir on 06/02 Continue dexamethasone - Last dose 06/07 ID recs appreciated. Maintained on ventilator (5) CHF (congestive heart failure) Current Visit: Yes Status: Acute Qualifiers: Heart failure type: systolic Heart failure chronicity: acute Qualified Code(s): I50.21 - Acute systolic (congestive) heart failure Plan to address problem: Cardiology following. (6) Coffee ground emesis -likely upper GI bleed Possible stress ulcers Continue PPI Monitor H/H (7) DVT prophylaxis Current Visit: Yes Status: Acute Plan to address problem: SCD to bilateral lower extremities while in bed Heparin (8) Advance care planning Current Visit: Yes Status: Acute Plan to address problem: Disease education conducted, prognosis discussed, +30 minutes. Patient is full code. History Interval history: See assessment and plan Hospitalist Physical - Constitutional Vitals: Temp Pulse Resp BP Pulse Ox 98.4 F 77 12 173/70 95 06/04/20 19:47 06/04/20 18:40 06/04/20 18:40 06/04/20 18:40 06/04/20 18:40 General appearance: Present: no acute distress, obese, other (intubated on the vent) - Neck Neck: Present: supple - Respiratory Respiratory: bilateral: diminished - Cardiovascular Heart Sounds: Present: S1 & S2 - Abdominal General gastrointestinal: soft, non-distended, normal bowel sounds - Psychiatric Psychiatric: other (Intubated) - Neurologic Neurologic: other (Intubated) Results - Labs CBC & Chem 7: 06/04/20 04:19 06/04/20 04:19 Labs: Laboratory Last Values WBC 10.5 K/mm3 (4.5-11.0) 06/04/20 04:19 RBC 3.15 M/mm3 (3.65-5.03) L 06/04/20 04:19 Hgb 8.9 gm/dl (10.1-14.3) L 06/04/20 04:19 Hct 26.8 % (30.3-42.9) L D 06/04/20 04:19 MCV 85 fl (79-97) 06/04/20 04:19 MCH 28 pg (28-32) 06/04/20 04:19 MCHC 33 % (30-34) 06/04/20 04:19 RDW 15.9 % (13.2-15.2) H 06/04/20 04:19 Plt Count 223 K/mm3 (140-440) 06/04/20 04:19 Lymph % (Auto) 6.0 % (13.4-35.0) L 06/04/20 04:19 [place] % (Auto) 7.2 % (0.0-7.3) 06/04/20 04:19 Eos % (Auto) 0.0 % (0.0-4.3) 06/04/20 04:19 Baso % (Auto) 0.2 % (0.0-1.8) 06/04/20 04:19 Lymph # 0.6 K/mm3 (1.2-5.4) L 06/04/20 04:19 [place] # 0.8 K/mm3 (0.0-0.8) 06/04/20 04:19 Eos # 0.0 K/mm3 (0.0-0.4) 06/04/20 04:19 Baso # 0.0 K/mm3 (0.0-0.1) 06/04/20 04:19 Seg Neutrophils % 86.6 % (40.0-70.0) H 06/04/20 04:19 Seg Neutrophils # 9.1 K/mm3 (1.8-7.7) H 06/04/20 04:19 PT 14.2 Sec. (12.2-14.9) 05/29/20 15:10 INR 1.08 (0.87-1.13) 05/29/20 15:10 APTT 27.2 Sec. (24.2-36.6) 05/29/20 15:10 D-Dimer 414.52 ng/mlDDU (0-234) H 06/04/20 04:19 Heparin Anti-Xa Level 0.69 U.I./ml (0.3-0.7) 06/04/20 04:19 ABG pH 7.331 pH Units (7.350-7.450) L 06/04/20 03:35 ABG pCO2 40.4 mm Hg 06/04/20 03:35 ABG pO2 82.9 mm Hg (80.0-90.0) 06/04/20 03:35 ABG HCO3 20.8 mmol/L (20.0-26.0) 06/04/20 03:35 ABG O2 Saturation 95.8 % (95.0-99.0) 06/04/20 03:35 ABG O2 Content 14.6 (0.0-44) 06/04/20 03:35 ABG Base Excess -4.7 mmol/L (-2.0-3.0) L 06/04/20 03:35 ABG Hemoglobin 11.0 gm/dl (12.0-16.0) L 06/04/20 03:35 ABG Carboxyhemoglobin 1.4 % (0.0-5.0) 06/04/20 03:35 ABG Methemoglobin 0.6 % (0.0-1.5) 06/04/20 03:35 VBG pH 7.152 (7.320-7.420) L* 05/28/20 13:47 Oxyhemoglobin 93.9 % (95.0-99.0) L 06/04/20 03:35 FiO2 25 % 06/04/20 03:35 Sodium 136 mmol/L (137-145) L 06/04/20 04:19 Potassium 4.4 mmol/L (3.6-5.0) 06/04/20 04:19 Chloride 102.8 mmol/L (98-107) 06/04/20 04:19 Carbon Dioxide 20 mmol/L (22-30) L 06/04/20 04:19 Anion Gap 18 mmol/L 06/04/20 04:19 BUN 73 mg/dL (7-17) H 06/04/20 04:19 Creatinine 2.0 mg/dL (0.6-1.2) H 06/04/20 04:19 Estimated GFR 25 ml/min 06/04/20 04:19 BUN/Creatinine Ratio 37 % 06/04/20 04:19 Glucose 192 mg/dL (65-100) H 06/04/20 04:19 POC Glucose 238 (70-105) H 06/04/20 18:25 Lactic Acid 1.90 mmol/L (0.7-2.0) 05/28/20 14:46 Calcium 8.0 mg/dL (8.4-10.2) L 06/04/20 04:19 Ferritin 100.7 ng/mL (10.0-200.0) 06/04/20 04:19 Total Bilirubin < 0.20 mg/dL (0.1-1.2) 06/04/20 04:19 AST 11 units/L (5-40) 06/04/20 04:19 ALT 13 units/L (7-56) 06/04/20 04:19 Alkaline Phosphatase 86 units/L (35-129) 06/04/20 04:19 Lactate Dehydrogenase 271 units/L (91-180) H 06/04/20 04:19 Total Creatine Kinase 301 units/L (30-135) H 05/28/20 13:47 CK-MB (CK-2) 4.3 ng/mL (0.0-4.0) H 05/28/20 13:47 CK-MB (CK-2) Rel Index 1.4 (0-4) 05/28/20 13:47 C-Reactive Protein 2.20 mg/dL (0.00-1.30) H 06/04/20 04:19 Total Protein 5.0 g/dL (6.3-8.2) L 06/04/20 04:19 Albumin 2.0 g/dL (3.9-5) L 06/04/20 04:19 Albumin/Globulin Ratio 0.7 % 06/04/20 04:19 Procalcitonin 0.17 ng/mL (<0.15) 06/04/20 04:19 Urine Color Yellow (Yellow) 06/03/20 Unknown Urine Turbidity Cloudy (Clear) 06/03/20 Unknown Urine pH 5.0 (5.0-7.0) 06/03/20 Unknown Ur Specific [place] 1.017 (1.003-1.030) 06/03/20 Unknown Urine Protein >500 mg/dL (Negative) 06/03/20 Unknown Urine Glucose (UA) 150 mg/dL (Negative) 06/03/20 Unknown Urine Ketones Neg mg/dL (Negative) 06/03/20 Unknown Urine Blood Neg (Negative) 06/03/20 Unknown Urine Nitrite Neg (Negative) 06/03/20 Unknown Urine Bilirubin Neg (Negative) 06/03/20 Unknown Urine Urobilinogen < 2.0 mg/dL (<2.0) 06/03/20 Unknown Ur Leukocyte Esterase Neg (Negative) 06/03/20 Unknown Urine WBC (Auto) 11.0 /HPF (0.0-6.0) H 06/03/20 Unknown Urine RBC (Auto) 12.0 /HPF (0.0-6.0) 06/03/20 Unknown U Epithel Cells (Auto) 1.0 /HPF (0-13.0) 06/03/20 Unknown Urine Bacteria (Auto) 1+ /HPF (Negative) 06/03/20 Unknown Urine Mucus Few /HPF 06/03/20 Unknown Urine Yeast (Budding) 2+ /HPF 06/03/20 Unknown Coronavirus (PCR) Positive (Negative) A 05/28/20 Unknown - Diagnostic Impressions Diagnostic Impressions: Echocardiogram Limited Views 05/29/20 13:52 Transthoracic Echocardiogram Indication: Pulm Embolus BP: 169/76 HR: 85 Conclusions *Limited study for RV size post cardiopulmonar arrest. *RV is only slightly dilated, no significant difference from prior echo 05/13/2020. *Global left ventricular systolic function is at the lower limits of normal. *The estimated ejection fraction is 45-50%. *Mild to moderate concentric left ventricular hypertrophy is observed. *The left and right atria are both mild to moderately dilated. Findings Left Ventricle: The left ventricular chamber size is mildly dilated. Mild to moderate concentric left ventricular hypertrophy is observed. Global left ventricular systolic function is at the lower limits of normal. The estimated ejection fraction is 45-50%. Left Atrium: The left atrium is mild to moderately dilated. Right Ventricle: The right ventricle is slightly dilated. Right Atrium: The right atrium is mild to moderately dilated. Aortic Valve: The aortic valve leaflets are moderately thickened. Mitral Valve: There is mitral annular calcification. The mitral valve leaflets are moderately thickened. Tricuspid Valve: The tricuspid valve leaflets are mildly thickened. Pericardium: A trivial pericardial effusion is visualized. NDUM: 05/29/20 1808 Amended Report Transthoracic Echocardiogram Indication: Pulm Embolus BP: 169/76 HR: 85 Conclusions *Limited study for RV size post cardiopulmonary arrest. *RV is only slightly dilated, no significant difference from prior echo 05/13/2020. *Global left ventricular systolic function is at the lower limits of normal. *The estimated ejection fraction is 45-50%. *Mild to moderate concentric left ventricular hypertrophy is observed. *The left and right atria are both mild to moderately dilated. Findings Left Ventricle: The left ventricular chamber size is mildly dilated. Mild to moderate concentric left ventricular hypertrophy is observed. Global left ventricular systolic function is at the lower limits of normal. The estimated ejection fraction is 45-50%. Left Atrium: The left atrium is mild to moderately dilated. Right Ventricle: The right ventricle is slightly dilated. Right Atrium: The right atrium is mild to moderately dilated. Aortic Valve: The aortic valve leaflets are moderately thickened. Mitral Valve: There is mitral annular calcification. The mitral valve leaflets are moderately thickened. Tricuspid Valve: The tricuspid valve leaflets are mildly thickened. Pericardium: A trivial pericardial effusion is visualized. Helm/IV: Voiding Method Indwelling Catheter IV Catheter Type [Left INT / Saline Lock Antecubital] IV Catheter Type [Right Peripheral IV Forearm] IV Catheter Type [Left Leg] Intra-osseous Active Medications - Current Medications Current Medications: Generic Name Dose Route Start Last Admin Trade Name Freq PRN Reason Stop Dose Admin Amlodipine Besylate 10 mg 06/02/20 11:00 06/04/20 09:00 Amlodipine PO 10 mg DAILY NELSON Administration Lipase/Protease/Amylase 1 each 05/29/20 13:[address] 10,500 Unit FEEDTUBE PRN PRN For Clogged Feeding Tube Carvedilol 12.5 mg 06/03/20 10:00 06/04/20 09:00 Coreg PO 12.5 mg BID NELSON Administration Clonidine HCl 0.1 mg 06/04/20 06:00 06/04/20 13:35 Catapres PO 0.1 mg Q8HR NELSON Administration Clonidine HCl 0.2 mg 06/04/20 06:00 06/04/20 13:36 Catapres PO 0.2 mg Q8HR NELSON Administration Dexamethasone 6 mg 05/29/20 15:00 06/04/20 09:01 Decadron PO 06/07/20 10:01 6 mg DAILY NELSON Administration Fentanyl 50 mcg 05/29/20 14:21 Sublimaze IV Q10MIN PRN ANALGESIA Hydralazine HCl 50 mg 06/03/20 09:00 06/04/20 13:36 Apresoline PO 50 mg Q8HR NELSON Administration Hydrophilic Ointment 1 applic 05/28/20 13:49 Vaseline Lip Therapy TP Q2HR PRN Dry Lips Heparin Sodium/Sodium Chloride 25,000 unit in 500 mls @ 30 mls/hr 05/29/20 15:00 06/04/20 10:42 Heparin/ 0.45% Nacl-25,000 Unit/500 Ml IV 1,450 units/hr TITR NELSON 29 mls/hr Administration Protocol 1,500 UNITS/HR Fentanyl Citrate 2,000 mcg in 100 mls @ 6.095 mls/hr 05/29/20 15:00 06/04/20 06:51 Fentanyl Drip Premix IV 1 mcg/kg/hr TITR NELSON 6.095 mls/hr Administration Protocol 1 MCG/KG/HR Nicardipine HCl 50 mg/ Sodium 250 mls @ 25 mls/hr 06/02/20 09:00 06/02/20 11:23 Chloride IV 0 mg/hr TITR NELSON 0 mls/hr Titration Protocol 5 MG/HR Insulin Human Lispro 0 unit 05/29/20 18:00 06/04/20 18:21 Humalog SUB-Q 4 unit Q6H NELSON Administration Protocol Labetalol HCl 20 mg 06/03/20 09:00 Labetalol IV Q4H PRN HYPERTENSION Levetiracetam 500 mg 05/29/20 22:00 06/04/20 09:00 Keppra PO 500 mg BID NELSON Administration Multi-Ingred Cream/Lotion/Oil/Oint 1 applic 05/28/20 13:49 Artificial Tears Ophth Oint OU Q4HR PRN Dry Eye(s) Ondansetron HCl 4 mg 06/02/20 09:00 Zofran IV Q8H PRN Nausea And Vomiting Pantoprazole Sodium 40 mg 06/02/20 22:00 06/04/20 09:01 Protonix IV 40 mg BID NELSON Administration Quetiapine Fumarate 200 mg 06/03/20 10:00 06/04/20 09:00 Seroquel PO 200 mg BID NELSON Administration Senna 17.6 mg 06/03/20 10:00 06/04/20 09:01 Senokot FEEDTUBE 17.6 mg BID NELSON Administration Simple Syrup 15 ml 05/29/20 13:39 Simple Syrup FEEDTUBE PRN PRN Hypoglycemia Simple Syrup 30 ml 05/29/20 13:39 Simple Syrup FEEDTUBE PRN PRN Hypoglycemia Sodium Bicarbonate 325 mg 05/29/20 13:39 Sodium Bicarbonate FEEDTUBE PRN PRN For Clogged Feeding Tube Sodium Chloride 10 ml 05/28/20 22:00 06/04/20 09:01 Sodium Chloride Flush Syringe 10 Ml IV 10 ml BID NELSON Administration Sodium Chloride 10 ml 05/28/20 19:08 Sodium Chloride Flush Syringe 10 Ml IV PRN PRN LINE FLUSH Nutrition/Malnutrition Assess - Dietary Evaluation Nutrition/Malnutrition Findings: Nutrition Notes Start: 05/29/20 11:45 Freq: Status: Active Protocol: Document 06/01/20 09:57 JOSEF (Rec: 06/01/20 10:02 JOSEF [email or web address]) Nutrition Notes Initial or Follow up Reassessment Current Diagnosis Heart Failure,Respiratory Failure Other Pertinent Diagnosis s/p Cardiac Arrest, Metabolic Encephalopathy, COVID-19 (+) Current Diet TF - Nepro at 40ml/hr Labs/Tests Reviewed Pertinent Medications Lasix Height 5 ft 6 in Weight 123 kg [place] Body Weight (kg) 59.09 BMI 43.7 Weight Status Morbidly Obese Subjective/Other Information Per RN, pt tolerating TF at goal rate. Pt remains on vent support. Burn Absent Trauma Absent #1 Nutrition Diagnosis Inadequate oral intake Diagnosis Progress(for reassessment Continues documentation) Is patient on ventilator? Yes Is Patient Ambulatory and/or Out of Bed No REE-([place]-confined to bed) [phone] Additional Notes Pro needs up to 2.5g/kg IBW: up to 148g/day Fluid needs 1ml/kcal Nutrition Intervention Nutrition Support: Continue Nepro at 40ml/hr Flush with 175ml q4h Kcal 1,728 Protein (gm) 78 Fluid (mL) 698 Goal #1 TF tolerance Goal #2 TF to meet at least 75% energy and pro needs Follow-Up By: 06/08/20 Additional Comments F/U: stable TF, vent status, wt
[2020-06-05] MEDS: INSULIN LISPRO 100 UNIT/ML VIAL 3 mL SUB-Q SCH ×4 (01:49→18:51)
[2020-06-05 05:51] LABS: ABG Base Excess -6.3 mmol/L (-2.0-3.0); ABG Methemoglobin 0.6 % (0.0-1.5); ABG PCO2 42.8 mm Hg; ABG PH 7.286 pH Units (7.350-7.450); ABG PO2 96.2 mm Hg (80.0-90.0)
[2020-06-05] MEDS: cloNIDine 0.1 MG TAB PO SCH ×3 (06:32→22:14)
[2020-06-05] MEDS: cloNIDine 0.2 MG TAB PO SCH ×3 (06:33→22:15)
[2020-06-05] MEDS: hydrALAZINE 25 MG TAB PO SCH ×3 (06:34→22:16)
[2020-06-05] MEDS: HEPARIN/ 0.45% NACL DRIP 25,000 UNIT/500 ML BAG IV SCH ×2 (06:36→22:32)
[2020-06-05 07:47] LABS: Basophils % (Auto) 0.2 % (0.0-1.8); Eosinophils % (Auto) 0.4 % (0.0-4.3); Hematocrit 25.7 % (30.3-42.9); Hemoglobin 8.7 gm/dl (10.1-14.3); Lymphocytes # (Auto) 0.8 K/mm3 (1.2-5.4); Lymphocytes % (Auto) 8.8 % (13.4-35.0); Mean Corpuscular HGB Conc 34 % (30-34); Mean Corpuscular Volume 87 fl (79-97); Monocytes # (Auto) 1.3 K/mm3 (0.0-0.8); Monocytes % (Auto) 13.3 % (0.0-7.3); Platelet Count 205 K/mm3 (140-440); Red Blood Count 2.97 M/mm3 (3.65-5.03)
[2020-06-05 08:18] LABS: Alanine Aminotransferase 12 units/L (7-56); Albumin 1.9 g/dL (3.9-5); BUN/Creatinine Ratio 32; Blood Urea Nitrogen 89 mg/dL (7-17); Calcium 7.7 mg/dL (8.4-10.2); Hemolysis Index 10
[2020-06-05] MEDS: amLODIPine 10 MG TAB PO SCH (09:26)
[2020-06-05] MEDS: SENNOSIDES ORAL LIQD 8.8 MG/5 ML ORAL LIQD FEEDTUBE SCH ×2 (09:26→22:16)
[2020-06-05] MEDS: carvediloL 12.5 MG TAB PO SCH ×3 (09:27→22:15)
[2020-06-05] MEDS: DEXAMETHASONE 4 MG TAB PO SCH (09:27)
[2020-06-05] MEDS: PANTOPRAZOLE 40 MG INJ IV SCH (09:27)
[2020-06-05] MEDS: QUEtiapine 200 MG TAB PO SCH ×2 (09:27→22:16)
[2020-06-05] MEDS: levETIRAcetam 500 MG TAB PO SCH ×2 (09:28→22:16)
--- NOTE | 2020-06-05 10:35 | Progress Note ---
Assessment and Plan - Patient Problems (1) Respiratory failure Current Visit: Yes Status: Acute Plan to address problem: Respiratory failure following cardiopulmonary arrest, continue supportive management. Subjective Date of service: 06/05/20 Principal diagnosis: Ac hypoxemic resp failure; COVID-19; pneumonia; CHF; Pulm HTN; OHS; DM II Interval history: Patient is sedated, on the vent, sinus bradycardia at 58, blood pressure 145 systolic Objective Vital Signs Temp Pulse Pulse Resp BP Pulse Ox 06/05/20 10:21 75 10 L 155/64 100 06/05/20 10:11 66 10 L 148/49 100 06/05/20 10:01 56 L 10 L 148/49 100 06/05/20 09:51 55 L 14 140/56 100 06/05/20 09:41 55 L 17 147/54 100 06/05/20 09:31 57 L 10 L 147/54 100 06/05/20 09:27 58 L 145/55 06/05/20 09:26 58 L 145/55 06/05/20 09:21 57 L 15 145/55 100 06/05/20 09:11 58 L 9 L 129/53 99 06/05/20 09:01 57 L 10 L 129/53 100 06/05/20 08:51 59 L 9 L 142/62 100 06/05/20 08:41 59 L 9 L 168/68 100 06/05/20 08:31 65 10 L 168/68 99 06/05/20 08:21 52 L 14 141/51 99 06/05/20 08:20 52 L 141/51 99 06/05/20 08:11 58 L 13 136/48 97 06/05/20 08:01 52 L 14 136/48 98 06/05/20 08:00 97.9 F 51 L 51 L 14 98 06/05/20 07:51 51 L 14 136/48 99 06/05/20 07:41 51 L 14 130/48 99 06/05/20 07:31 52 L 14 130/48 98 06/05/20 07:21 52 L 14 133/47 97 06/05/20 07:11 52 L 14 132/46 97 06/05/20 07:01 52 L 13 132/46 98 06/05/20 06:51 51 L 14 135/48 98 08/28/20 06:41 49 L 14 139/50 98 06/05/20 06:34 62 139/50 06/05/20 06:33 62 139/50 06/05/20 06:32 62 139/50 06/05/20 06:31 50 L 14 139/50 97 06/05/20 06:21 50 L 14 134/50 96 06/05/20 06:11 50 L 14 97 06/05/20 06:00 51 L 14 131/45 96 06/05/20 05:50 51 L 14 131/45 96 06/05/20 05:40 51 L 14 136/48 96 06/05/20 05:30 51 L 14 136/48 95 06/05/20 05:20 51 L 14 132/48 96 06/05/20 05:10 51 L 14 141/44 96 06/05/20 05:00 51 L 14 131/44 96 06/05/20 04:52 51 L 131/54 98 06/05/20 04:50 52 L 14 131/44 98 06/05/20 04:40 52 L 14 134/45 98 06/05/20 04:30 52 L 14 134/45 98 06/05/20 04:20 52 L 14 132/44 98 06/05/20 04:10 53 L 14 137/47 98 06/05/20 04:00 54 L 53 L 14 137/47 98 06/05/20 03:50 58 L 14 149/48 99 06/05/20 03:40 52 L 15 135/47 98 06/05/20 03:34 98.2 F 06/05/20 03:30 52 L 13 136/46 99 06/05/20 03:20 52 L 14 136/46 98 06/05/20 03:10 52 L 14 134/45 99 06/05/20 03:00 52 L 13 134/47 99 06/05/20 02:50 52 L 14 134/47 99 06/05/20 02:40 53 L 14 134/47 97 06/05/20 02:30 52 L 14 134/47 98 06/05/20 02:20 52 L 14 137/47 98 06/05/20 02:10 54 L 14 134/44 98 06/05/20 02:00 55 L 14 142/53 99 06/05/20 01:50 54 L 13 134/44 99 06/05/20 01:40 52 L 14 133/45 99 06/05/20 01:30 53 L 14 133/49 98 06/05/20 01:20 54 L 14 133/49 98 06/05/20 01:10 53 L 14 124/43 97 06/05/20 01:00 53 L 14 130/45 96 06/05/20 00:50 53 L 14 130/45 96 06/05/20 00:40 52 L 14 134/44 97 06/05/20 00:30 52 L 14 124/43 97 06/05/20 00:29 52 L 123/41 97 06/05/20 00:20 52 L 14 123/41 97 06/05/20 00:10 53 L 14 129/44 98 06/05/20 00:00 52 L 52 L 14 134/44 95 06/04/20 23:52 118/93 06/04/20 23:51 118/93 06/04/20 23:50 54 L 14 129/44 97 06/04/20 23:46 118/93 06/04/20 23:40 56 L 14 163/53 97 06/04/20 23:37 98.2 F 06/04/20 23:30 61 18 163/53 99 06/04/20 23:20 67 18 163/53 99 06/04/20 23:10 72 19 132/47 99 06/04/20 23:00 85 14 191/67 100 06/04/20 22:50 94 H 14 178/62 100 06/04/20 22:40 67 15 132/47 98 06/04/20 22:30 54 L 14 132/47 98 06/04/20 22:20 55 L 13 131/47 98 06/04/20 22:10 57 L 14 187/55 98 06/04/20 22:00 60 14 187/55 90 06/04/20 21:50 66 15 187/55 94 06/04/20 21:40 72 17 179/64 93 06/04/20 21:31 80 179/64 95 06/04/20 21:30 80 17 187/64 94 06/04/20 21:20 83 19 196/70 96 06/04/20 21:10 85 11 L 118/93 97 06/04/20 21:00 73 13 130/53 94 06/04/20 20:50 54 L 14 130/53 94 06/04/20 20:40 56 L 11 L 133/55 95 06/04/20 20:30 55 L 13 133/55 93 06/04/20 20:20 56 L 15 126/49 96 06/04/20 20:10 58 L 11 L 130/50 95 06/04/20 20:00 56 L 89 15 130/50 96 06/04/20 19:50 57 L 13 133/55 94 06/04/20 19:47 98.4 F 06/04/20 19:40 61 12 137/49 94 06/04/20 19:30 63 8 L 137/49 94 06/04/20 19:20 67 12 145/58 95 06/04/20 19:10 67 14 155/62 96 06/04/20 19:00 70 17 155/62 96 06/04/20 18:50 76 16 159/63 96 06/04/20 18:46 75 14 159/63 95 06/04/20 18:40 77 12 173/70 95 06/04/20 18:30 88 9 L 138/62 96 06/04/20 18:20 85 9 L 138/62 95 06/04/20 18:10 55 L 16 138/62 95 06/04/20 18:07 82 138/62 96 06/04/20 18:00 55 L 15 138/62 95 06/04/20 17:50 53 L 16 134/60 94 06/04/20 17:40 53 L 14 129/62 93 06/04/20 17:30 54 L 14 129/62 92 06/04/20 17:20 53 L 14 131/59 92 06/04/20 17:10 53 L 14 130/65 92 06/04/20 17:00 53 L 14 130/65 92 06/04/20 16:50 53 L 14 129/58 92 06/04/20 16:40 52 L 16 133/66 95 06/04/20 16:30 54 L 9 L 133/66 95 06/04/20 16:20 54 L 12 122/64 96 06/04/20 16:10 53 L 12 132/67 96 06/04/20 16:00 53 L 53 L 9 L 134/67 96 06/04/20 15:50 55 L 9 L 134/67 96 06/04/20 15:41 98.3 F 06/04/20 15:40 53 L 10 L 130/63 95 06/04/20 15:30 53 L 11 L 130/63 95 06/04/20 15:20 54 L 8 L 139/66 95 06/04/20 15:10 54 L 8 L 135/71 95 06/04/20 15:00 55 L 12 135/71 94 06/04/20 14:50 54 L 11 L 132/64 96 06/04/20 14:40 55 L 11 L 125/70 95 06/04/20 14:30 56 L 9 L 125/70 95 06/04/20 14:25 52 L 133/66 95 06/04/20 14:20 56 L 8 L 128/56 94 06/04/20 14:10 59 L 8 L 142/76 95 06/04/20 14:00 62 10 L 184/85 94 06/04/20 13:50 69 10 L 184/85 95 06/04/20 13:40 76 17 194/88 94 06/04/20 13:36 76 194/88 06/04/20 13:35 76 194/88 06/04/20 13:30 73 13 147/69 95 06/04/20 13:20 57 L 16 147/69 94 06/04/20 13:10 53 L 16 148/66 94 06/04/20 13:00 54 L 16 148/66 94 06/04/20 12:50 54 L 16 147/69 93 06/04/20 12:40 53 L 16 147/66 93 06/04/20 12:30 53 L 16 147/66 93 06/04/20 12:20 52 L 16 147/67 93 06/04/20 12:10 52 L 16 146/68 93 06/04/20 12:00 97.6 F 52 L 52 L 15 146/68 93 06/04/20 11:50 52 L 16 145/74 92 06/04/20 11:40 51 L 16 132/62 93 06/04/20 11:36 51 L 06/04/20 11:30 51 L 16 132/62 92 06/04/20 11:20 52 L 8 L 134/69 95 06/04/20 11:10 53 L 19 134/69 97 06/04/20 11:00 52 L 15 134/69 95 06/04/20 10:50 54 L 12 132/67 95 06/04/20 10:40 53 L 18 134/69 97 - Physical Examination General: Other (intubated on the vent) HEENT: Positive: PERRL, Normocephaly, Mucus Membranes Moist Neck: Positive: neck supple. Negative: JVD/HJR Cardiac: Positive: Regular Rhythm Lungs: Positive: Decreased Breath Sounds Neuro: Positive: Other (Intubated, on the vent) Abdomen: Positive: Soft Skin: Positive: Clear Extremities: Absent: edema - Labs and Meds Cardiac Enzymes 06/05/20 Range/Units 07:25 AST 10 (5-40) units/L CBC 06/05/20 Range/Units 07:25 WBC 9.4 (4.5-11.0) K/mm3 RBC 2.97 L (3.65-5.03) M/mm3 Hgb 8.7 L (10.1-14.3) gm/dl Hct 25.7 L (30.3-42.9) % Plt Count 205 (140-440) K/mm3 Lymph # 0.8 L (1.2-5.4) K/mm3 Centre # 1.3 H (0.0-0.8) K/mm3 Eos # 0.0 (0.0-0.4) K/mm3 Baso # 0.0 (0.0-0.1) K/mm3 Comprehensive Metabolic Panel 06/05/20 Range/Units 07:25 Sodium 133 L (137-145) mmol/L Potassium 4.4 (3.6-5.0) mmol/L Chloride 101.9 (98-107) mmol/L Carbon Dioxide 17 L (22-30) mmol/L BUN 89 H (7-17) mg/dL Creatinine 2.8 H (0.6-1.2) mg/dL Glucose 176 H (65-100) mg/dL Calcium 7.7 L (8.4-10.2) mg/dL AST 10 (5-40) units/L ALT 12 (7-56) units/L Alkaline Phosphatase 74 (35-129) units/L Total Protein 4.2 L (6.3-8.2) g/dL Albumin 1.9 L (3.9-5) g/dL - Allied health notes Allied health notes reviewed: nursing
--- NOTE | 2020-06-05 12:26 | Progress Note ---
Assessment and Plan Acute hypoxemic respiratory failure on MVS Coronavirus-19 infection. Bilateral pulmonary infiltrates, bilateral pneumonia plus likely element of Pulmonary edema. Bilateral pulmonary edema. Bilateral pleural effusions. History of congestive heart failure. Morbid obesity. History of pulmonary hypertension. History of hypertension. Diabetes. Obesity hypoventilation syndrome. Elevated serum inflammatory markers to include D-dimers and LDH levels. Hyperkalemia at presentation. Metabolic acidosis. Oropharyngeal dysphagia. - add Robinul and scopolamine for secretions control - nephrology consult placed - get urine lytes meanwhile - get bilateral US chest +/- thoracentesis - strict I's and O's - continue care as below otherwise; - continue Daily SAT and SBT assessment as tolerated - continue to wean supplemental oxygen for target O2 sat's > 90% acutely - VAP bundle addressed - continue lung protective strategies - continue bronchodilators with pulmonary hygiene per RT - wean per pulmonary driven protocols otherwise - continue accuchecks resumed with glycemic control per SSI (While critically ill target blood glucose of 140-180 mg/dL; avoid hypoglycemia) - sedation prn for target RASS 0 to -1 - continue to avoid benzodiazepine's, reduce the possibility of delirium - completed AB's per ID rec's - prn analgesia per CPOT score - Maintenance of sleep-wake cycle, avoid delirium - continue enteral nutritional support at goal rate as tolerated - G.I. & VTE prophylaxis - PT/OT/ROM exercises - continue mobility protocols for pressure ulcer prophylaxis - Monitor hemodynamics closely - continue other care per attending / other consultants - discharge planning ongoing concurrently .... Re-evaluate in am & prn CONDITION: CRITICAL PROGNOSIS: GUARDED CODE STATUS: FULL CODE The high probability of a clinically significant, sudden or life-threatening deterioration of the [respiratory, cardiovascular, renal & neurologic] system(s) required my full and direct attention, intervention and personal management. The aggregate critical care time was [32] minutes without overlap. Time includes spent on; [x] Data Review and interpretation [x] Patient assessment and monitoring of vital signs [x] Documentation [x] Medication orders and management Subjective Date of service: 06/05/20 Principal diagnosis: Ac hypoxemic resp failure; COVID-19; pneumonia; CHF; Pulm HTN; OHS; DM II Interval history: Patient is seen today for: Ac hypoxemic resp failure; Coronavirus-19 infection; pneumonia; Pulmonary edema; Bilateral pleural effusions; CHF; Morbid obesity; pulmonary hypertension; OHS; DM II Seen and examined at bedside; 24hour events reviewed; nursing and respiratory care staff consulted; no adverse overnight events reported to me; resting peacefully in bed; remains on MVS; oropharyngeal secretions large; no emesis or overt aspiration Objective Vital Signs - 12hr 06/05/20 06/05/20 06/05/20 00:29 00:30 00:40 Temperature Pulse Rate 52 L 52 L 52 L Pulse Rate [ From Monitor] Respiratory 14 14 Rate Blood Pressure 123/41 124/43 134/44 O2 Sat by Pulse 97 97 97 Oximetry 06/05/20 06/05/20 06/05/20 00:50 01:00 01:10 Temperature Pulse Rate 53 L 53 L 53 L Pulse Rate [ From Monitor] Respiratory 14 14 14 Rate Blood Pressure 130/45 130/45 124/43 O2 Sat by Pulse 96 96 97 Oximetry 06/05/20 06/05/20 06/05/20 01:20 01:30 01:40 Temperature Pulse Rate 54 L 53 L 52 L Pulse Rate [ From Monitor] Respiratory 14 14 14 Rate Blood Pressure 133/49 133/49 133/45 O2 Sat by Pulse 98 98 99 Oximetry 06/05/20 06/05/20 06/05/20 01:50 02:00 02:10 Temperature Pulse Rate 54 L 55 L 54 L Pulse Rate [ From Monitor] Respiratory 13 14 14 Rate Blood Pressure 134/44 142/53 134/44 O2 Sat by Pulse 99 99 98 Oximetry 06/05/20 06/05/20 06/05/20 02:20 02:30 02:40 Temperature Pulse Rate 52 L 52 L 53 L Pulse Rate [ From Monitor] Respiratory 14 14 14 Rate Blood Pressure 137/47 134/47 134/47 O2 Sat by Pulse 98 98 97 Oximetry 06/05/20 06/05/20 06/05/20 02:50 03:00 03:10 Temperature Pulse Rate 52 L 52 L 52 L Pulse Rate [ From Monitor] Respiratory 14 13 14 Rate Blood Pressure 134/47 134/47 134/45 O2 Sat by Pulse 99 99 99 Oximetry 06/05/20 06/05/20 06/05/20 03:20 03:30 03:34 Temperature 98.2 F Pulse Rate 52 L 52 L Pulse Rate [ From Monitor] Respiratory 14 13 Rate Blood Pressure 136/46 136/46 O2 Sat by Pulse 98 99 Oximetry 06/05/20 06/05/20 06/05/20 03:40 03:50 04:00 Temperature Pulse Rate 52 L 58 L 54 L Pulse Rate [ 53 L From Monitor] Respiratory 15 14 14 Rate Blood Pressure 135/47 149/48 137/47 O2 Sat by Pulse 98 99 98 Oximetry 06/05/20 06/05/20 06/05/20 04:10 04:20 04:30 Temperature Pulse Rate 53 L 52 L 52 L Pulse Rate [ From Monitor] Respiratory 14 14 14 Rate Blood Pressure 137/47 132/44 134/45 O2 Sat by Pulse 98 98 98 Oximetry 06/05/20 06/05/20 06/05/20 04:40 04:50 04:52 Temperature Pulse Rate 52 L 52 L 51 L Pulse Rate [ From Monitor] Respiratory 14 14 Rate Blood Pressure 134/45 131/44 131/54 O2 Sat by Pulse 98 98 98 Oximetry 06/05/20 06/05/20 06/05/20 05:00 05:10 05:20 Temperature Pulse Rate 51 L 51 L 51 L Pulse Rate [ From Monitor] Respiratory 14 14 14 Rate Blood Pressure 131/44 141/44 132/48 O2 Sat by Pulse 96 96 96 Oximetry 06/05/20 06/05/20 06/05/20 05:30 05:40 05:50 Temperature Pulse Rate 51 L 51 L 51 L Pulse Rate [ From Monitor] Respiratory 14 14 14 Rate Blood Pressure 136/48 136/48 131/45 O2 Sat by Pulse 95 96 96 Oximetry 06/05/20 06/05/20 06/05/20 06:00 06:11 06:21 Temperature Pulse Rate 51 L 50 L 50 L Pulse Rate [ From Monitor] Respiratory 14 14 14 Rate Blood Pressure 131/45 134/50 O2 Sat by Pulse 96 97 96 Oximetry 06/05/20 06/05/20 06/05/20 06:31 06:32 06:33 Temperature Pulse Rate 50 L 62 62 Pulse Rate [ From Monitor] Respiratory 14 Rate Blood Pressure 139/50 139/50 139/50 O2 Sat by Pulse 97 Oximetry 06/05/20 06/05/20 06/05/20 06:34 06:41 06:51 Temperature Pulse Rate 62 49 L 51 L Pulse Rate [ From Monitor] Respiratory 14 14 Rate Blood Pressure 139/50 139/50 135/48 O2 Sat by Pulse 98 98 Oximetry 06/05/20 06/05/20 06/05/20 07:01 07:11 07:21 Temperature Pulse Rate 52 L 52 L 52 L Pulse Rate [ From Monitor] Respiratory 13 14 14 Rate Blood Pressure 132/46 132/46 133/47 O2 Sat by Pulse 98 97 97 Oximetry 06/05/20 06/05/20 06/05/20 07:31 07:41 07:51 Temperature Pulse Rate 52 L 51 L 51 L Pulse Rate [ From Monitor] Respiratory 14 14 14 Rate Blood Pressure 130/48 130/48 136/48 O2 Sat by Pulse 98 99 99 Oximetry 06/05/20 06/05/20 06/05/20 08:00 08:01 08:11 Temperature 97.9 F Pulse Rate 51 L 52 L 58 L Pulse Rate [ 51 L From Monitor] Respiratory 14 14 13 Rate Blood Pressure 136/48 136/48 O2 Sat by Pulse 98 98 97 Oximetry 06/05/20 06/05/20 06/05/20 08:20 08:21 08:31 Temperature Pulse Rate 52 L 52 L 65 Pulse Rate [ From Monitor] Respiratory 14 10 L Rate Blood Pressure 141/51 141/51 168/68 O2 Sat by Pulse 99 99 99 Oximetry 06/05/20 06/05/20 06/05/20 08:41 08:51 09:01 Temperature Pulse Rate 59 L 59 L 57 L Pulse Rate [ From Monitor] Respiratory 9 L 9 L 10 L Rate Blood Pressure 168/68 142/62 129/53 O2 Sat by Pulse 100 100 100 Oximetry 06/05/20 06/05/20 06/05/20 09:11 09:21 09:26 Temperature Pulse Rate 58 L 57 L 58 L Pulse Rate [ From Monitor] Respiratory 9 L 15 Rate Blood Pressure 129/53 145/55 145/55 O2 Sat by Pulse 99 100 Oximetry 06/05/20 06/05/20 06/05/20 09:27 09:31 09:41 Temperature Pulse Rate 58 L 57 L 55 L Pulse Rate [ From Monitor] Respiratory 10 L 17 Rate Blood Pressure 145/55 147/54 147/54 O2 Sat by Pulse 100 100 Oximetry 06/05/20 06/05/20 06/05/20 09:51 10:01 10:11 Temperature Pulse Rate 55 L 56 L 66 Pulse Rate [ From Monitor] Respiratory 14 10 L 10 L Rate Blood Pressure 140/56 148/49 148/49 O2 Sat by Pulse 100 100 100 Oximetry 06/05/20 06/05/20 06/05/20 10:21 10:31 10:41 Temperature Pulse Rate 75 71 70 Pulse Rate [ From Monitor] Respiratory 10 L 9 L 10 L Rate Blood Pressure 155/64 177/70 177/70 O2 Sat by Pulse 100 99 100 Oximetry 06/05/20 06/05/20 06/05/20 10:51 11:01 11:52 Temperature Pulse Rate 68 68 75 Pulse Rate [ From Monitor] Respiratory 10 L 10 L Rate Blood Pressure 171/87 173/69 198/83 O2 Sat by Pulse 100 99 100 Oximetry 06/05/20 06/05/20 11:53 12:00 Temperature 98.4 F Pulse Rate 70 Pulse Rate [ From Monitor] Respiratory Rate Blood Pressure 188/79 O2 Sat by Pulse Oximetry Constitutional: no acute distress, other (elderly looking obese female riding set rate on MVS at rest) Eyes: non-icteric ENT: oropharynx moist, other (ETT 23 cm AYAN) Neck: supple, no lymphadenopathy, no JVD, other (ETT 23 cm AYAN) Effort: mildly labored Ascultation: Bilateral: diminished breath sounds, rhonchi Percussion: Bilateral: not dull Cardiovascular: regular rate and rhythm Gastrointestinal: normoactive bowel sounds, soft, non-tender, non-distended Integumentary: normal Extremities: no cyanosis, no edema, pink and warm, pulses normal, no ischemia or petechiae Neurologic: non-focal exam (grossly), pupils equal and round, unable to assess Psychiatric: other (unable to assess re: AMS) CBC and BMP: 06/09/20 05:16 06/09/20 05:16 ABG, PT/INR, D-dimer: ABG ABG pH 7.286 pH Units (7.350-7.450) L 06/05/20 05:00 ABG pCO2 42.8 mm Hg 06/05/20 05:00 ABG pO2 96.2 mm Hg (80.0-90.0) H 06/05/20 05:00 ABG O2 Saturation 97.0 % (95.0-99.0) 06/05/20 05:00 PT/INR, D-dimer PT 14.2 Sec. (12.2-14.9) 05/29/20 15:10 INR 1.08 (0.87-1.13) 05/29/20 15:10 D-Dimer 414.52 ng/mlDDU (0-234) H 06/04/20 04:19 Abnormal lab findings: Abnormal Labs 05/28/20 05/28/20 05/28/20 13:29 13:47 13:47 WBC RBC Hgb Hct RDW 15.3 H Lymph % (Auto) [place] % (Auto) Lymph # [place] # Seg Neutrophils % Seg Neutrophils # D-Dimer Heparin Anti-Xa Level ABG pH ABG pO2 ABG HCO3 ABG O2 Saturation ABG Base Excess ABG Hemoglobin VBG pH Oxyhemoglobin Sodium Potassium 6.6 H* Chloride 109.2 H Carbon Dioxide 17 L BUN 29 H Creatinine 1.3 H Glucose 265 H POC Glucose 248 H Lactic Acid Calcium 8.1 L AST 63 H Lactate Dehydrogenase Total Creatine Kinase 301 H CK-MB (CK-2) 4.3 H C-Reactive Protein Total Protein 5.4 L Albumin 2.6 L Urine WBC (Auto) Coronavirus (PCR) 05/28/20 05/28/20 05/28/20 13:47 13:47 14:46 WBC RBC Hgb Hct RDW Lymph % (Auto) [place] % (Auto) Lymph # [place] # Seg Neutrophils % Seg Neutrophils # D-Dimer Heparin Anti-Xa Level ABG pH ABG pO2 ABG HCO3 ABG O2 Saturation ABG Base Excess ABG Hemoglobin VBG pH 7.152 L* Oxyhemoglobin Sodium Potassium 7.2 H* Chloride Carbon Dioxide BUN Creatinine Glucose POC Glucose Lactic Acid 3.40 H* Calcium AST Lactate Dehydrogenase Total Creatine Kinase CK-MB (CK-2) C-Reactive Protein Total Protein Albumin Urine WBC (Auto) Coronavirus (PCR) 05/28/20 05/28/20 05/28/20 15:33 15:33 15:51 WBC RBC Hgb Hct RDW Lymph % (Auto) [place] % (Auto) Lymph # [place] # Seg Neutrophils % Seg Neutrophils # D-Dimer 8780.43 H Heparin Anti-Xa Level ABG pH 7.284 L ABG pO2 273.0 H ABG HCO3 ABG O2 Saturation 99.4 H ABG Base Excess -6.1 L ABG Hemoglobin 17.2 H VBG pH Oxyhemoglobin Sodium Potassium Chloride Carbon Dioxide BUN Creatinine Glucose 152 H POC Glucose Lactic Acid Calcium AST Lactate Dehydrogenase 365 H Total Creatine Kinase CK-MB (CK-2) C-Reactive Protein Total Protein Albumin Urine WBC (Auto) Coronavirus (PCR) 05/28/20 05/28/20 05/28/20 16:30 20:41 23:20 WBC RBC Hgb Hct RDW Lymph % (Auto) [place] % (Auto) Lymph # [place] # Seg Neutrophils % Seg Neutrophils # D-Dimer Heparin Anti-Xa Level ABG pH ABG pO2 ABG HCO3 ABG O2 Saturation ABG Base Excess ABG Hemoglobin VBG pH Oxyhemoglobin Sodium Potassium Chloride Carbon Dioxide BUN Creatinine Glucose POC Glucose 225 H 224 H Lactic Acid Calcium AST Lactate Dehydrogenase Total Creatine Kinase CK-MB (CK-2) C-Reactive Protein Total Protein Albumin Urine WBC (Auto) 17.0 H Coronavirus (PCR) 05/28/20 05/29/20 05/29/20 Unknown 04:35 04:43 WBC RBC 3.48 L Hgb 9.8 L Hct 29.4 L RDW 16.0 H Lymph % (Auto) 7.4 L [place] % (Auto) Lymph # 0.7 L [place] # Seg Neutrophils % 89.1 H Seg Neutrophils # 8.1 H D-Dimer Heparin Anti-Xa Level ABG pH ABG pO2 ABG HCO3 19.3 L ABG O2 Saturation ABG Base Excess -4.5 L ABG Hemoglobin 9.7 L VBG pH Oxyhemoglobin Sodium Potassium Chloride Carbon Dioxide BUN Creatinine Glucose POC Glucose Lactic Acid Calcium AST Lactate Dehydrogenase Total Creatine Kinase CK-MB (CK-2) C-Reactive Protein Total Protein Albumin Urine WBC (Auto) Coronavirus (PCR) Positive A 05/29/20 05/29/20 05/29/20 04:43 15:10 17:17 WBC RBC Hgb 9.3 L Hct 28.7 L RDW Lymph % (Auto) [place] % (Auto) Lymph # [place] # Seg Neutrophils % Seg Neutrophils # D-Dimer Heparin Anti-Xa Level ABG pH ABG pO2 ABG HCO3 ABG O2 Saturation ABG Base Excess ABG Hemoglobin VBG pH Oxyhemoglobin Sodium Potassium Chloride 110.2 H Carbon Dioxide 18 L BUN 32 H Creatinine 1.4 H Glucose 180 H POC Glucose 147 H Lactic Acid Calcium AST Lactate Dehydrogenase Total Creatine Kinase CK-MB (CK-2) C-Reactive Protein Total Protein Albumin Urine WBC (Auto) Coronavirus (PCR) 05/30/20 05/30/20 05/30/20 00:08 00:12 04:15 WBC RBC Hgb Hct RDW Lymph % (Auto) [place] % (Auto) Lymph # [place] # Seg Neutrophils % Seg Neutrophils # D-Dimer Heparin Anti-Xa Level 0.71 H ABG pH 7.460 H ABG pO2 106.0 H ABG HCO3 18.9 L ABG O2 Saturation ABG Base Excess -4.4 L ABG Hemoglobin 6.8 L VBG pH Oxyhemoglobin Sodium Potassium Chloride Carbon Dioxide BUN Creatinine Glucose POC Glucose 195 H Lactic Acid Calcium AST Lactate Dehydrogenase Total Creatine Kinase CK-MB (CK-2) C-Reactive Protein Total Protein Albumin Urine WBC (Auto) Coronavirus (PCR) 05/30/20 05/30/20 05/30/20 06:07 08:37 12:33 WBC RBC Hgb Hct RDW Lymph % (Auto) [place] % (Auto) Lymph # [place] # Seg Neutrophils % Seg Neutrophils # D-Dimer Heparin Anti-Xa Level 0.85 H ABG pH ABG pO2 ABG HCO3 ABG O2 Saturation ABG Base Excess ABG Hemoglobin VBG pH Oxyhemoglobin Sodium Potassium Chloride Carbon Dioxide BUN Creatinine Glucose POC Glucose 182 H 187 H Lactic Acid Calcium AST Lactate Dehydrogenase Total Creatine Kinase CK-MB (CK-2) C-Reactive Protein Total Protein Albumin Urine WBC (Auto) Coronavirus (PCR) 05/30/20 05/30/20 05/30/20 15:58 17:57 23:36 WBC RBC Hgb Hct RDW Lymph % (Auto) [place] % (Auto) Lymph # [place] # Seg Neutrophils % Seg Neutrophils # D-Dimer Heparin Anti-Xa Level 1.03 H ABG pH ABG pO2 ABG HCO3 ABG O2 Saturation ABG Base Excess ABG Hemoglobin VBG pH Oxyhemoglobin Sodium Potassium Chloride Carbon Dioxide BUN Creatinine Glucose POC Glucose 208 H 185 H Lactic Acid Calcium AST Lactate Dehydrogenase Total Creatine Kinase CK-MB (CK-2) C-Reactive Protein Total Protein Albumin Urine WBC (Auto) Coronavirus (PCR) 05/31/20 05/31/20 05/31/20 02:16 03:55 06:16 WBC RBC Hgb 9.2 L Hct 27.5 L RDW Lymph % (Auto) [place] % (Auto) Lymph # [place] # Seg Neutrophils % Seg Neutrophils # D-Dimer Heparin Anti-Xa Level ABG pH ABG pO2 94.7 H ABG HCO3 18.6 L ABG O2 Saturation ABG Base Excess -5.5 L ABG Hemoglobin 7.9 L VBG pH Oxyhemoglobin Sodium Potassium Chloride Carbon Dioxide BUN Creatinine Glucose POC Glucose 160 H Lactic Acid Calcium AST Lactate Dehydrogenase Total Creatine Kinase CK-MB (CK-2) C-Reactive Protein Total Protein Albumin Urine WBC (Auto) Coronavirus (PCR) 05/31/20 05/31/20 05/31/20 12:20 13:03 18:13 WBC RBC Hgb Hct RDW Lymph % (Auto) [place] % (Auto) Lymph # [place] # Seg Neutrophils % Seg Neutrophils # D-Dimer Heparin Anti-Xa Level ABG pH ABG pO2 ABG HCO3 ABG O2 Saturation ABG Base Excess ABG Hemoglobin VBG pH Oxyhemoglobin Sodium Potassium Chloride Carbon Dioxide 18 L BUN 48 H Creatinine 1.6 H Glucose 115 H POC Glucose 128 H 159 H Lactic Acid Calcium 8.3 L AST Lactate Dehydrogenase Total Creatine Kinase CK-MB (CK-2) C-Reactive Protein Total Protein 5.4 L Albumin 2.4 L Urine WBC (Auto) Coronavirus (PCR) 05/31/20 06/01/20 06/01/20 23:51 04:00 05:48 WBC RBC Hgb Hct RDW Lymph % (Auto) [place] % (Auto) Lymph # [place] # Seg Neutrophils % Seg Neutrophils # D-Dimer Heparin Anti-Xa Level ABG pH ABG pO2 109.8 H ABG HCO3 18.8 L ABG O2 Saturation ABG Base Excess -5.9 L ABG Hemoglobin 7.8 L VBG pH Oxyhemoglobin Sodium Potassium Chloride Carbon Dioxide BUN Creatinine Glucose POC Glucose 171 H 133 H Lactic Acid Calcium AST Lactate Dehydrogenase Total Creatine Kinase CK-MB (CK-2) C-Reactive Protein Total Protein Albumin Urine WBC (Auto) Coronavirus (PCR) 06/01/20 06/01/20 06/02/20 12:28 17:29 00:08 WBC RBC Hgb Hct RDW Lymph % (Auto) [place] % (Auto) Lymph # [place] # Seg Neutrophils % Seg Neutrophils # D-Dimer Heparin Anti-Xa Level ABG pH ABG pO2 ABG HCO3 ABG O2 Saturation ABG Base Excess ABG Hemoglobin VBG pH Oxyhemoglobin Sodium Potassium Chloride Carbon Dioxide BUN Creatinine Glucose POC Glucose 199 H 209 H 162 H Lactic Acid Calcium AST Lactate Dehydrogenase Total Creatine Kinase CK-MB (CK-2) C-Reactive Protein Total Protein Albumin Urine WBC (Auto) Coronavirus (PCR) 06/02/20 06/02/20 06/02/20 04:20 04:20 04:44 WBC RBC Hgb 10.0 L Hct RDW Lymph % (Auto) [place] % (Auto) Lymph # [place] # Seg Neutrophils % Seg Neutrophils # D-Dimer Heparin Anti-Xa Level 0.10 L ABG pH ABG pO2 150.6 H ABG HCO3 ABG O2 Saturation ABG Base Excess -4.1 L ABG Hemoglobin 11.8 L VBG pH Oxyhemoglobin Sodium Potassium Chloride Carbon Dioxide BUN Creatinine Glucose POC Glucose Lactic Acid Calcium AST Lactate Dehydrogenase Total Creatine Kinase CK-MB (CK-2) C-Reactive Protein Total Protein Albumin Urine WBC (Auto) Coronavirus (PCR) 06/02/20 06/02/20 06/02/20 05:53 12:04 13:49 WBC RBC Hgb Hct RDW Lymph % (Auto) [place] % (Auto) Lymph # [place] # Seg Neutrophils % Seg Neutrophils # D-Dimer Heparin Anti-Xa Level 0.28 L ABG pH ABG pO2 ABG HCO3 ABG O2 Saturation ABG Base Excess ABG Hemoglobin VBG pH Oxyhemoglobin Sodium Potassium Chloride Carbon Dioxide BUN Creatinine Glucose POC Glucose 149 H 220 H Lactic Acid Calcium AST Lactate Dehydrogenase Total Creatine Kinase CK-MB (CK-2) C-Reactive Protein Total Protein Albumin Urine WBC (Auto) Coronavirus (PCR) 06/02/20 06/02/20 06/03/20 13:49 18:31 00:42 WBC RBC Hgb Hct RDW Lymph % (Auto) [place] % (Auto) Lymph # [place] # Seg Neutrophils % Seg Neutrophils # D-Dimer 769.68 H Heparin Anti-Xa Level ABG pH ABG pO2 ABG HCO3 ABG O2 Saturation ABG Base Excess ABG Hemoglobin VBG pH Oxyhemoglobin Sodium Potassium Chloride Carbon Dioxide BUN Creatinine Glucose POC Glucose 225 H 212 H Lactic Acid Calcium AST Lactate Dehydrogenase Total Creatine Kinase CK-MB (CK-2) C-Reactive Protein Total Protein Albumin Urine WBC (Auto) Coronavirus (PCR) 06/03/20 06/03/20 06/03/20 05:16 05:16 05:25 WBC 11.4 H RBC Hgb Hct RDW 16.4 H Lymph % (Auto) [place] % (Auto) Lymph # [place] # Seg Neutrophils % Seg Neutrophils # D-Dimer Heparin Anti-Xa Level ABG pH ABG pO2 160.9 H ABG HCO3 19.4 L ABG O2 Saturation ABG Base Excess -4.9 L ABG Hemoglobin 7.0 L VBG pH Oxyhemoglobin Sodium Potassium Chloride Carbon Dioxide 18 L BUN 65 H Creatinine 2.0 H Glucose 175 H POC Glucose Lactic Acid Calcium 8.0 L AST Lactate Dehydrogenase Total Creatine Kinase CK-MB (CK-2) C-Reactive Protein Total Protein 5.5 L Albumin 2.2 L Urine WBC (Auto) Coronavirus (PCR) 06/03/20 06/03/20 06/03/20 06:07 11:58 18:24 WBC RBC Hgb Hct RDW Lymph % (Auto) [place] % (Auto) Lymph # [place] # Seg Neutrophils % Seg Neutrophils # D-Dimer Heparin Anti-Xa Level ABG pH ABG pO2 ABG HCO3 ABG O2 Saturation ABG Base Excess ABG Hemoglobin VBG pH Oxyhemoglobin Sodium Potassium Chloride Carbon Dioxide BUN Creatinine Glucose POC Glucose 177 H 163 H 211 H Lactic Acid Calcium AST Lactate Dehydrogenase Total Creatine Kinase CK-MB (CK-2) C-Reactive Protein Total Protein Albumin Urine WBC (Auto) Coronavirus (PCR) 06/03/20 06/03/20 06/04/20 21:50 Unknown 00:26 WBC RBC Hgb Hct RDW Lymph % (Auto) [place] % (Auto) Lymph # [place] # Seg Neutrophils % Seg Neutrophils # D-Dimer Heparin Anti-Xa Level ABG pH ABG pO2 ABG HCO3 ABG O2 Saturation ABG Base Excess ABG Hemoglobin VBG pH Oxyhemoglobin Sodium 135 L Potassium Chloride Carbon Dioxide 18 L BUN Creatinine Glucose POC Glucose 241 H Lactic Acid Calcium AST Lactate Dehydrogenase Total Creatine Kinase CK-MB (CK-2) C-Reactive Protein Total Protein Albumin Urine WBC (Auto) 11.0 H Coronavirus (PCR) 06/04/20 06/04/20 06/04/20 03:35 04:19 04:19 WBC RBC 3.15 L Hgb 8.9 L Hct 26.8 L D RDW 15.9 H Lymph % (Auto) 6.0 L [place] % (Auto) Lymph # 0.6 L [place] # Seg Neutrophils % 86.6 H Seg Neutrophils # 9.1 H D-Dimer Heparin Anti-Xa Level ABG pH 7.331 L ABG pO2 ABG HCO3 ABG O2 Saturation ABG Base Excess -4.7 L ABG Hemoglobin 11.0 L VBG pH Oxyhemoglobin 93.9 L Sodium 136 L Potassium Chloride Carbon Dioxide 20 L BUN 73 H Creatinine 2.0 H Glucose 192 H POC Glucose Lactic Acid Calcium 8.0 L AST Lactate Dehydrogenase 271 H Total Creatine Kinase CK-MB (CK-2) C-Reactive Protein 2.20 H Total Protein 5.0 L Albumin 2.0 L Urine WBC (Auto) Coronavirus (PCR) 06/04/20 06/04/20 06/04/20 04:19 05:51 11:48 WBC RBC Hgb Hct RDW Lymph % (Auto) [place] % (Auto) Lymph # [place] # Seg Neutrophils % Seg Neutrophils # D-Dimer 414.52 H Heparin Anti-Xa Level ABG pH ABG pO2 ABG HCO3 ABG O2 Saturation ABG Base Excess ABG Hemoglobin VBG pH Oxyhemoglobin Sodium Potassium Chloride Carbon Dioxide BUN Creatinine Glucose POC Glucose 179 H 213 H Lactic Acid Calcium AST Lactate Dehydrogenase Total Creatine Kinase CK-MB (CK-2) C-Reactive Protein Total Protein Albumin Urine WBC (Auto) Coronavirus (PCR) 06/04/20 06/05/20 06/05/20 18:25 00:16 05:00 WBC RBC Hgb Hct RDW Lymph % (Auto) [place] % (Auto) Lymph # [place] # Seg Neutrophils % Seg Neutrophils # D-Dimer Heparin Anti-Xa Level ABG pH 7.286 L ABG pO2 96.2 H ABG HCO3 ABG O2 Saturation ABG Base Excess -6.3 L ABG Hemoglobin 8.8 L VBG pH Oxyhemoglobin 94.8 L Sodium Potassium Chloride Carbon Dioxide BUN Creatinine Glucose POC Glucose 238 H 183 H Lactic Acid Calcium AST Lactate Dehydrogenase Total Creatine Kinase CK-MB (CK-2) C-Reactive Protein Total Protein Albumin Urine WBC (Auto) Coronavirus (PCR) 06/05/20 06/05/20 06/05/20 05:39 07:25 07:25 WBC RBC 2.97 L Hgb 8.7 L Hct 25.7 L RDW 16.0 H Lymph % (Auto) 8.8 L [place] % (Auto) 13.3 H Lymph # 0.8 L [place] # 1.3 H Seg Neutrophils % 77.3 H Seg Neutrophils # D-Dimer Heparin Anti-Xa Level ABG pH ABG pO2 ABG HCO3 ABG O2 Saturation ABG Base Excess ABG Hemoglobin VBG pH Oxyhemoglobin Sodium 133 L Potassium Chloride Carbon Dioxide 17 L BUN 89 H Creatinine 2.8 H Glucose 176 H POC Glucose 149 H Lactic Acid Calcium 7.7 L AST Lactate Dehydrogenase Total Creatine Kinase CK-MB (CK-2) C-Reactive Protein Total Protein 4.2 L Albumin 1.9 L Urine WBC (Auto) Coronavirus (PCR) 06/05/20 06/05/20 07:25 12:05 WBC RBC Hgb Hct RDW Lymph % (Auto) [place] % (Auto) Lymph # [place] # Seg Neutrophils % Seg Neutrophils # D-Dimer Heparin Anti-Xa Level 0.76 H ABG pH ABG pO2 ABG HCO3 ABG O2 Saturation ABG Base Excess ABG Hemoglobin VBG pH Oxyhemoglobin Sodium Potassium Chloride Carbon Dioxide BUN Creatinine Glucose POC Glucose 198 H Lactic Acid Calcium AST Lactate Dehydrogenase Total Creatine Kinase CK-MB (CK-2) C-Reactive Protein Total Protein Albumin Urine WBC (Auto) Coronavirus (PCR) Chest x-ray: pending Allied health notes reviewed: nursing
--- NOTE | 2020-06-05 13:15 | Progress Note ---
Assessment and Plan Cultures: Coronavirus PCR: Positive 05/28/2020 blood culture: no growth 05/28/2020 tracheal aspirate: Usual respiratory bobo 05/28/2020 urine culture: No growth A/P: 64-year-old female with hypertension, diastolic CHF, pulmonary hypertension, diabetes, obesity hypoventilation syndrome was admitted to the emergency room after she called EMS due to difficulty breathing. On the way to the hospital, patient developed cardiac arrest and was treated as per ACLS protocol: #Bilateral pneumonia: Secondary to COVID-19. Completed 5 days of IV Remdesivir 06/02/2020. #Acute hypoxic respiratory failure: On mechanical ventilation. Minimal vent settings. #Status post PEA arrest, encephalopathy #Mild LFT elevation: likely from COVID-19. #Mild AVANI Recs: IV/PO Dexamethasone 6 mg daily x 10 days, day 8 Completed 5 days of IV Remdesivir 06/02/2020 prophylactic anticoagulation based on d-dimer per protocol CCP not needed since hypoxia is not that much of a concern, she is on minimal vent settings Mallory Wright MD, FACP [facility] ([facility] C: [phone] O: [phone] F: [phone] Subjective Date of service: 06/05/20 Principal diagnosis: Ac hypoxemic resp failure; COVID-19; pneumonia; CHF; Pulm HTN; OHS; DM II Interval history: Remains intubated, on the vent. No fever. D/W RN. Vent settings are minimal. Objective - Exam Narrative Exam: Physical Exam (reviewed in chart due to PPE conservation) Constitutional: intubated, sedated, on the vent Head, Ears, Nose: normocephalic, atraumatic Eyes: limited due to PPE conservation strategy Neck: intubated Oral: intubated Cardiovascular: limited due to PPE conservation strategy Respiratory: limited due to PPE conservation strategy GI: limited due to PPE conservation strategy Musculoskeletal: limited due to PPE conservation strategy Skin: limited due to PPE conservation strategy Hem/Lymphatic: limited due to PPE conservation strategy Psych: no agitation Neurological: sedated, intubated, on the vent, exam limited - Constitutional Vitals: Vital Signs Temp Pulse Resp BP Pulse Ox 98.4 F 75 12 176/78 99 06/05/20 12:00 06/05/20 12:41 06/05/20 12:41 06/05/20 12:41 06/05/20 12:41 Temperature -Last 24 Hours Temperature 98.4 F Temperature 98.4 F Temperature 97.9 F Temperature 98.2 F Temperature 98.2 F Temperature 98.4 F Temperature 98.3 F - Labs CBC & Chem 7: 06/05/20 07:25 06/05/20 07:25 Labs: Abnormal lab results 06/04/20 06/04/20 06/05/20 Range/Units 11:48 18:25 00:16 RBC (3.65-5.03) M/mm3 Hgb (10.1-14.3) gm/dl Hct (30.3-42.9) % RDW (13.2-15.2) % Lymph % (Auto) (13.4-35.0) % [place] % (Auto) (0.0-7.3) % Lymph # (1.2-5.4) K/mm3 [place] # (0.0-0.8) K/mm3 Seg Neutrophils % (40.0-70.0) % Heparin Anti-Xa Level (0.3-0.7) U.I./ml ABG pH (7.350-7.450) pH Units ABG pO2 (80.0-90.0) mm Hg ABG Base Excess (-2.0-3.0) mmol/L ABG Hemoglobin (12.0-16.0) gm/dl Oxyhemoglobin (95.0-99.0) % Sodium (137-145) mmol/L Carbon Dioxide (22-30) mmol/L BUN (7-17) mg/dL Creatinine (0.6-1.2) mg/dL Glucose (65-100) mg/dL POC Glucose 213 H 238 H 183 H (70-105) Calcium (8.4-10.2) mg/dL Total Protein (6.3-8.2) g/dL Albumin (3.9-5) g/dL 06/05/20 06/05/20 06/05/20 Range/Units 05:00 05:39 07:25 RBC 2.97 L (3.65-5.03) M/mm3 Hgb 8.7 L (10.1-14.3) gm/dl Hct 25.7 L (30.3-42.9) % RDW 16.0 H (13.2-15.2) % Lymph % (Auto) 8.8 L (13.4-35.0) % [place] % (Auto) 13.3 H (0.0-7.3) % Lymph # 0.8 L (1.2-5.4) K/mm3 [place] # 1.3 H (0.0-0.8) K/mm3 Seg Neutrophils % 77.3 H (40.0-70.0) % Heparin Anti-Xa Level (0.3-0.7) U.I./ml ABG pH 7.286 L (7.350-7.450) pH Units ABG pO2 96.2 H (80.0-90.0) mm Hg ABG Base Excess -6.3 L (-2.0-3.0) mmol/L ABG Hemoglobin 8.8 L (12.0-16.0) gm/dl Oxyhemoglobin 94.8 L (95.0-99.0) % Sodium (137-145) mmol/L Carbon Dioxide (22-30) mmol/L BUN (7-17) mg/dL Creatinine (0.6-1.2) mg/dL Glucose (65-100) mg/dL POC Glucose 149 H (70-105) Calcium (8.4-10.2) mg/dL Total Protein (6.3-8.2) g/dL Albumin (3.9-5) g/dL 06/05/20 06/05/20 06/05/20 Range/Units 07:25 07:25 12:05 RBC (3.65-5.03) M/mm3 Hgb (10.1-14.3) gm/dl Hct (30.3-42.9) % RDW (13.2-15.2) % Lymph % (Auto) (13.4-35.0) % [place] % (Auto) (0.0-7.3) % Lymph # (1.2-5.4) K/mm3 [place] # (0.0-0.8) K/mm3 Seg Neutrophils % (40.0-70.0) % Heparin Anti-Xa Level 0.76 H (0.3-0.7) U.I./ml ABG pH (7.350-7.450) pH Units ABG pO2 (80.0-90.0) mm Hg ABG Base Excess (-2.0-3.0) mmol/L ABG Hemoglobin (12.0-16.0) gm/dl Oxyhemoglobin (95.0-99.0) % Sodium 133 L (137-145) mmol/L Carbon Dioxide 17 L (22-30) mmol/L BUN 89 H (7-17) mg/dL Creatinine 2.8 H (0.6-1.2) mg/dL Glucose 176 H (65-100) mg/dL POC Glucose 198 H (70-105) Calcium 7.7 L (8.4-10.2) mg/dL Total Protein 4.2 L (6.3-8.2) g/dL Albumin 1.9 L (3.9-5) g/dL
[2020-06-05] MEDS ORDERED: GLYCOPYRROLATE 2 MG TAB PO SCH (14:00)
[2020-06-05] MEDS: GLYCOPYRROLATE 1 MG TAB PO SCH ×2 (14:15→22:21)
[2020-06-05] MEDS: SCOPOLAMINE TRANSDERMAL PATCH 72 HR TD SCH (14:15)
--- NOTE | 2020-06-05 17:59 | Progress Note ---
Assessment and Plan Assessment and plan: 64 YO Female with a medical history of HTN, Diastolic CHF, Pulmonary HTN, DM, Obesity Hypoventilation Syndrome presents to ED for evaluation of shortness of breath. Patients history taken from EMS staff, ED staff. As per staff, the EMS was notified for difficulty breathing. Upon arrival to the patient's home the patient was found to be in distress and was subsequently transported to [facility] for further evaluation and care. In route to [facility] the patient developed cardiac arrest and was treated in accordance with ACLS protocol with return of ROSC Patient was seen and evaluated in the emergency department and was found to have acute hypoxemic respiratory failure status post cardiac arrest. Patient was intubated and placed on ventilatory support. Patient admitted to ICU due to increased risk of decompensation. Critical care team consulted in ED. She was found to have COVID-19 iinfection and was started on steroids and remdesivir. ID was consulted. Cardiology was consulted for her systolic heart failure and cardiac arrest. 06/01. Patient remains intubated and on ventilatory support today. Patient has multiple organ system failure and has poor prognosis. Patient did not experience significant medical decompensation overnight but no improvement with current therapy. 06/02. Remains intubated. her BP is elevated. Started on nicardipine drip. Cardiology following. 06/03-06/04. BP is better. Hb stable. Completed remdesivir. ID , Cardiology and Critical care team on board 06/05. Bump in creatinine. I/O reviewed. Nephrology consulted. Patient Problems (1) Acute hypoxemic respiratory failure Current Visit: Yes Status: Acute Plan to address problem: From COVID-19 viral infection Patient intubated, sedated and on ventilatory support. Critical care team on board The high probability of a clinically significant, sudden or life threatening deterioration of the [pulmonary, renal, cardiac, neuro] system(s) required my full and direct attention, intervention and personal management. The aggregate critical care time was [90] minutes. This time is in addition to time spent performing reported procedures but includes the following: [x] Data Review and interpretation [x] Patient assessment and monitoring of vital signs [x] Documentation [x] Medication orders and management (2) Cardiac arrest Current Visit: Yes Status: Acute Plan to address problem: Cardiology team on board Conservative management as per cardiology (3) Acute renal failure Current Visit: Yes Status: Acute Plan to address problem: Monitor UO Strict I/O Avoid ACEI and other nephrotoxic medications Nephrology consulted. Check urine lytes, [place], urine sodium, protein.cr ratio (4) Coronavirus infection Current Visit: Yes Status: Acute Plan to address problem: Completed remdesivir on 06/02 Continue dexamethasone - Last dose 06/07 ID recs appreciated. Maintained on ventilator (5) CHF (congestive heart failure) Current Visit: Yes Status: Acute Qualifiers: Heart failure type: systolic Heart failure chronicity: acute Qualified Code(s): I50.21 - Acute systolic (congestive) heart failure Plan to address problem: Cardiology following. (6) Coffee ground emesis -Stress ulcers Possible stress ulcers Continue PPI H/H remains stable (7) DVT prophylaxis Current Visit: Yes Status: Acute Plan to address problem: SCD to bilateral lower extremities while in bed Heparin (8) Advance care planning Current Visit: Yes Status: Acute Plan to address problem: Disease education conducted, prognosis discussed, +30 minutes. Patient is full code. History Interval history: See assessment and plan Hospitalist Physical - Constitutional Vitals: Temp Pulse Resp BP Pulse Ox 98.1 F 66 9 L 160/61 99 06/05/20 15:48 06/05/20 16:21 06/05/20 16:21 06/05/20 16:21 06/05/20 16:21 General appearance: Present: no acute distress, obese, other (intubated on the vent) - EENT Eyes: Present: PERRL - Neck Neck: Present: supple - Respiratory Respiratory: bilateral: diminished - Cardiovascular Heart rate: 60 Heart Sounds: Present: S1 & S2 - Extremities Extremities: no ischemia - Abdominal General gastrointestinal: soft, non-tender, non-distended, normal bowel sounds - Neurologic Neurologic: other (Sedated ) Results - Labs CBC & Chem 7: 06/05/20 07:25 06/05/20 07:25 Labs: Laboratory Last Values WBC 9.4 K/mm3 (4.5-11.0) 06/05/20 07:25 RBC 2.97 M/mm3 (3.65-5.03) L 06/05/20 07:25 Hgb 8.7 gm/dl (10.1-14.3) L 06/05/20 07:25 Hct 25.7 % (30.3-42.9) L 06/05/20 07:25 MCV 87 fl (79-97) 06/05/20 07:25 MCH 29 pg (28-32) 06/05/20 07:25 MCHC 34 % (30-34) 06/05/20 07:25 RDW 16.0 % (13.2-15.2) H 06/05/20 07:25 Plt Count 205 K/mm3 (140-440) 06/05/20 07:25 Lymph % (Auto) 8.8 % (13.4-35.0) L 06/05/20 07:25 [place] % (Auto) 13.3 % (0.0-7.3) H 06/05/20 07:25 Eos % (Auto) 0.4 % (0.0-4.3) 06/05/20 07:25 Baso % (Auto) 0.2 % (0.0-1.8) 06/05/20 07:25 Lymph # 0.8 K/mm3 (1.2-5.4) L 06/05/20 07:25 [place] # 1.3 K/mm3 (0.0-0.8) H 06/05/20 07:25 Eos # 0.0 K/mm3 (0.0-0.4) 06/05/20 07:25 Baso # 0.0 K/mm3 (0.0-0.1) 06/05/20 07:25 Seg Neutrophils % 77.3 % (40.0-70.0) H 06/05/20 07:25 Seg Neutrophils # 7.3 K/mm3 (1.8-7.7) 06/05/20 07:25 PT 14.2 Sec. (12.2-14.9) 05/29/20 15:10 INR 1.08 (0.87-1.13) 05/29/20 15:10 APTT 27.2 Sec. (24.2-36.6) 05/29/20 15:10 D-Dimer 414.52 ng/mlDDU (0-234) H 06/04/20 04:19 Heparin Anti-Xa Level 0.81 U.I./ml (0.3-0.7) H 06/05/20 15:41 ABG pH 7.286 pH Units (7.350-7.450) L 06/05/20 05:00 ABG pCO2 42.8 mm Hg 06/05/20 05:00 ABG pO2 96.2 mm Hg (80.0-90.0) H 06/05/20 05:00 ABG HCO3 20.0 mmol/L (20.0-26.0) 06/05/20 05:00 ABG O2 Saturation 97.0 % (95.0-99.0) 06/05/20 05:00 ABG O2 Content 11.8 (0.0-44) 06/05/20 05:00 ABG Base Excess -6.3 mmol/L (-2.0-3.0) L 06/05/20 05:00 ABG Hemoglobin 8.8 gm/dl (12.0-16.0) L 06/05/20 05:00 ABG Carboxyhemoglobin 1.6 % (0.0-5.0) 06/05/20 05:00 ABG Methemoglobin 0.6 % (0.0-1.5) 06/05/20 05:00 VBG pH 7.152 (7.320-7.420) L* 05/28/20 13:47 Oxyhemoglobin 94.8 % (95.0-99.0) L 06/05/20 05:00 FiO2 25 % 06/05/20 05:00 Sodium 133 mmol/L (137-145) L 06/05/20 07:25 Potassium 4.4 mmol/L (3.6-5.0) 06/05/20 07:25 Chloride 101.9 mmol/L (98-107) 06/05/20 07:25 Carbon Dioxide 17 mmol/L (22-30) L 06/05/20 07:25 Anion Gap 19 mmol/L 06/05/20 07:25 BUN 89 mg/dL (7-17) H 06/05/20 07:25 Creatinine 2.8 mg/dL (0.6-1.2) H 06/05/20 07:25 Estimated GFR 17 ml/min 06/05/20 07:25 BUN/Creatinine Ratio 32 % 06/05/20 07:25 Glucose 176 mg/dL (65-100) H 06/05/20 07:25 POC Glucose 223 (70-105) H 06/05/20 18:08 Lactic Acid 1.90 mmol/L (0.7-2.0) 05/28/20 14:46 Calcium 7.7 mg/dL (8.4-10.2) L 06/05/20 07:25 Ferritin 100.7 ng/mL (10.0-200.0) 06/04/20 04:19 Total Bilirubin < 0.20 mg/dL (0.1-1.2) 06/05/20 07:25 AST 10 units/L (5-40) 06/05/20 07:25 ALT 12 units/L (7-56) 06/05/20 07:25 Alkaline Phosphatase 74 units/L (35-129) 06/05/20 07:25 Lactate Dehydrogenase 271 units/L (91-180) H 06/04/20 04:19 Total Creatine Kinase 301 units/L (30-135) H 05/28/20 13:47 CK-MB (CK-2) 4.3 ng/mL (0.0-4.0) H 05/28/20 13:47 CK-MB (CK-2) Rel Index 1.4 (0-4) 05/28/20 13:47 C-Reactive Protein 2.20 mg/dL (0.00-1.30) H 06/04/20 04:19 Total Protein 4.2 g/dL (6.3-8.2) L 06/05/20 07:25 Albumin 1.9 g/dL (3.9-5) L 06/05/20 07:25 Albumin/Globulin Ratio 0.8 % 06/05/20 07:25 Procalcitonin 0.17 ng/mL (<0.15) 06/04/20 04:19 Urine Color Yellow (Yellow) 06/03/20 Unknown Urine Turbidity Cloudy (Clear) 06/03/20 Unknown Urine pH 5.0 (5.0-7.0) 06/03/20 Unknown Ur Specific [place] 1.017 (1.003-1.030) 06/03/20 Unknown Urine Protein >500 mg/dL (Negative) 06/03/20 Unknown Urine Glucose (UA) 150 mg/dL (Negative) 06/03/20 Unknown Urine Ketones Neg mg/dL (Negative) 06/03/20 Unknown Urine Blood Neg (Negative) 06/03/20 Unknown Urine Nitrite Neg (Negative) 06/03/20 Unknown Urine Bilirubin Neg (Negative) 06/03/20 Unknown Urine Urobilinogen < 2.0 mg/dL (<2.0) 06/03/20 Unknown Ur Leukocyte Esterase Neg (Negative) 06/03/20 Unknown Urine WBC (Auto) 11.0 /HPF (0.0-6.0) H 06/03/20 Unknown Urine RBC (Auto) 12.0 /HPF (0.0-6.0) 06/03/20 Unknown U Epithel Cells (Auto) 1.0 /HPF (0-13.0) 06/03/20 Unknown Urine Bacteria (Auto) 1+ /HPF (Negative) 06/03/20 Unknown Urine Mucus Few /HPF 06/03/20 Unknown Urine Yeast (Budding) 2+ /HPF 06/03/20 Unknown Coronavirus (PCR) Positive (Negative) A 05/28/20 Unknown - Diagnostic Impressions Diagnostic Impressions: Echocardiogram Limited Views 05/29/20 13:52 Transthoracic Echocardiogram Indication: Pulm Embolus BP: 169/76 HR: 85 Conclusions *Limited study for RV size post cardiopulmonar arrest. *RV is only slightly dilated, no significant difference from prior echo 05/13/2020. *Global left ventricular systolic function is at the lower limits of normal. *The estimated ejection fraction is 45-50%. *Mild to moderate concentric left ventricular hypertrophy is observed. *The left and right atria are both mild to moderately dilated. Findings Left Ventricle: The left ventricular chamber size is mildly dilated. Mild to moderate concentric left ventricular hypertrophy is observed. Global left ventricular systolic function is at the lower limits of normal. The estimated ejection fraction is 45-50%. Left Atrium: The left atrium is mild to moderately dilated. Right Ventricle: The right ventricle is slightly dilated. Right Atrium: The right atrium is mild to moderately dilated. Aortic Valve: The aortic valve leaflets are moderately thickened. Mitral Valve: There is mitral annular calcification. The mitral valve leaflets are moderately thickened. Tricuspid Valve: The tricuspid valve leaflets are mildly thickened. Pericardium: A trivial pericardial effusion is visualized. NDUM: 05/29/20 1808 Amended Report Transthoracic Echocardiogram Indication: Pulm Embolus BP: 169/76 HR: 85 Conclusions *Limited study for RV size post cardiopulmonary arrest. *RV is only slightly dilated, no significant difference from prior echo 05/13/2020. *Global left ventricular systolic function is at the lower limits of normal. *The estimated ejection fraction is 45-50%. *Mild to moderate concentric left ventricular hypertrophy is observed. *The left and right atria are both mild to moderately dilated. Findings Left Ventricle: The left ventricular chamber size is mildly dilated. Mild to moderate concentric left ventricular hypertrophy is observed. Global left ventricular systolic function is at the lower limits of normal. The estimated ejection fraction is 45-50%. Left Atrium: The left atrium is mild to moderately dilated. Right Ventricle: The right ventricle is slightly dilated. Right Atrium: The right atrium is mild to moderately dilated. Aortic Valve: The aortic valve leaflets are moderately thickened. Mitral Valve: There is mitral annular calcification. The mitral valve leaflets are moderately thickened. Tricuspid Valve: The tricuspid valve leaflets are mildly thickened. Pericardium: A trivial pericardial effusion is visualized. Helm/IV: Voiding Method Indwelling Catheter IV Catheter Type [Left INT / Saline Lock Antecubital] IV Catheter Type [Right Peripheral IV Forearm] IV Catheter Type [Left Leg] Intra-osseous Active Medications - Current Medications Current Medications: Generic Name Dose Route Start Last Admin Trade Name Freq PRN Reason Stop Dose Admin Amlodipine Besylate 10 mg 06/02/20 11:00 06/05/20 09:26 Amlodipine PO 10 mg DAILY NELSON Administration Lipase/Protease/Amylase 1 each 05/29/20 13:39 Pancremu Lawson 10,500 Unit FEEDTUBE PRN PRN For Clogged Feeding Tube Carvedilol 12.5 mg 06/03/20 10:00 06/05/20 11:53 Coreg PO 12.5 mg BID NELSON Administration Clonidine HCl 0.1 mg 06/04/20 06:00 06/05/20 14:15 Catapres PO 0.1 mg Q8HR NELSON Administration Clonidine HCl 0.2 mg 06/04/20 06:00 06/05/20 14:16 Catapres PO 0.2 mg Q8HR NELSON Administration Dexamethasone 6 mg 05/29/20 15:00 06/05/20 09:27 Decadron PO 06/07/20 10:01 6 mg DAILY NELSON Administration Fentanyl 50 mcg 05/29/20 14:21 Sublimaze IV Q10MIN PRN ANALGESIA Glycopyrrolate 1 mg 06/05/20 15:00 06/05/20 14:15 Robinul PO 1 mg TID NELSON Administration Hydralazine HCl 50 mg 06/03/20 09:00 06/05/20 14:16 Apresoline PO 50 mg Q8HR NELSON Administration Hydrophilic Ointment 1 applic 05/28/20 13:49 Vaseline Lip Therapy TP Q2HR PRN Dry Lips Heparin Sodium/Sodium Chloride 25,000 unit in 500 mls @ 30 mls/hr 05/29/20 15:00 06/05/20 16:38 Heparin/ 0.45% Nacl-25,000 Unit/500 Ml IV 1,250 units/hr TITR NELSON 25 mls/hr Titration Protocol 1,500 UNITS/HR Fentanyl Citrate 2,000 mcg in 100 mls @ 6.095 mls/hr 05/29/20 15:00 06/05/20 08:28 Fentanyl Drip Premix IV 0 mcg/kg/hr TITR NELSON 0 mls/hr Titration Protocol 1 MCG/KG/HR Nicardipine HCl 50 mg/ Sodium 250 mls @ 25 mls/hr 06/02/20 09:00 06/02/20 11:23 Chloride IV 0 mg/hr TITR NELSON 0 mls/hr Titration Protocol 5 MG/HR Insulin Human Lispro 0 unit 05/29/20 18:00 06/05/20 11:52 Humalog SUB-Q 3 unit Q6H NELSON Administration Protocol Labetalol HCl 20 mg 06/03/20 09:00 Labetalol IV Q4H PRN HYPERTENSION Lansoprazole 30 mg 06/05/20 22:00 Prevacid Solutab FEEDTUBE BID NELSON Levetiracetam 500 mg 05/29/20 22:00 06/05/20 09:28 Keppra PO 500 mg BID NELSON Administration Multi-Ingred Cream/Lotion/Oil/Oint 1 applic 05/28/20 13:49 Artificial Tears Ophth Oint OU Q4HR PRN Dry Eye(s) Ondansetron HCl 4 mg 06/02/20 09:00 Zofran IV Q8H PRN Nausea And Vomiting Quetiapine Fumarate 200 mg 06/03/20 10:00 06/05/20 09:27 Seroquel PO 200 mg BID NELSON Administration Scopolamine 1 each 06/05/20 14:00 06/05/20 14:15 Transderm-Scop TD 1 each Q3D NELSON Administration Senna 17.6 mg 06/03/20 10:00 06/05/20 09:26 Senokot FEEDTUBE 17.6 mg BID NELSON Administration Simple Syrup 15 ml 05/29/20 13:39 Simple Syrup FEEDTUBE PRN PRN Hypoglycemia Simple Syrup 30 ml 05/29/20 13:39 Simple Syrup FEEDTUBE PRN PRN Hypoglycemia Sodium Bicarbonate 325 mg 05/29/20 13:39 Sodium Bicarbonate FEEDTUBE PRN PRN For Clogged Feeding Tube Sodium Chloride 10 ml 05/28/20 22:00 06/05/20 09:28 Sodium Chloride Flush Syringe 10 Ml IV 10 ml BID NELSON Administration Sodium Chloride 10 ml 05/28/20 19:08 Sodium Chloride Flush Syringe 10 Ml IV PRN PRN LINE FLUSH Nutrition/Malnutrition Assess - Dietary Evaluation Nutrition/Malnutrition Findings: Nutrition Notes Start: 05/29/20 11:45 Freq: Status: Active Protocol: Document 06/01/20 09:57 [facility] (Rec: 06/01/20 10:02 [facility] SRW- [id number]) Nutrition Notes Initial or Follow up Reassessment Current Diagnosis Heart Failure,Respiratory Failure Other Pertinent Diagnosis s/p Cardiac Arrest, Metabolic Encephalopathy, COVID-19 (+) Current Diet TF - Nepro at 40ml/hr Labs/Tests Reviewed Pertinent Medications Lasix Height 5 ft 6 in Weight 123 kg [place] Body Weight (kg) 59.09 BMI 43.7 Weight Status Morbidly Obese Subjective/Other Information Per RN, pt tolerating TF at goal rate. Pt remains on vent support. Burn Absent Trauma Absent #1 Nutrition Diagnosis Inadequate oral intake Diagnosis Progress(for reassessment Continues documentation) Is patient on ventilator? Yes Is Patient Ambulatory and/or Out of Bed No REE-([facility]-confined to bed) [phone] Additional Notes Pro needs up to 2.5g/kg IBW: up to 148g/day Fluid needs 1ml/kcal Nutrition Intervention Nutrition Support: Continue Nepro at 40ml/hr Flush with 175ml q4h Kcal 1,728 Protein (gm) 78 Fluid (mL) 698 Goal #1 TF tolerance Goal #2 TF to meet at least 75% energy and pro needs Follow-Up By: 06/08/20 Additional Comments F/U: stable TF, vent status, wt
[2020-06-05] MEDS: LANSOPRAZOLE 30 MG SOLUTAB FEEDTUBE SCH (22:16)
[2020-06-05] MEDS: fentaNYL DRIP Premix 2,000 MCG/100 ML BAG IV SCH (22:30)
[2020-06-06 04:32] LABS: Creatinine,Urine 82.2 mg/dL (0.1-20.0)
[2020-06-06 04:37] LABS: Amorphous Crystals,Urine 1+; Bacteria,Urine 2+ /HPF (Negative); Bilirubin,Urine NEG (Negative); Blood,Urine SM (Negative); Color,Urine Yellow (Yellow); Hyaline Casts,Urine 16 /LPF; Mucus,Urine 2+ /HPF; Urobilinogen,Urine < 2.0 mg/dL (<2.0)
[2020-06-06] MEDS: cloNIDine 0.1 MG TAB PO SCH ×3 (05:41→22:55)
[2020-06-06] MEDS: hydrALAZINE 25 MG TAB PO SCH ×3 (05:41→22:55)
[2020-06-06] MEDS: cloNIDine 0.2 MG TAB PO SCH ×3 (05:41→22:55)
[2020-06-06] MEDS: INSULIN LISPRO 100 UNIT/ML VIAL 3 mL SUB-Q SCH ×4 (05:42→17:53)
[2020-06-06 06:13] LABS: Hematocrit 26.8 % (30.3-42.9); Hemoglobin 8.7 gm/dl (10.1-14.3); Mean Corpuscular HGB Conc 33 % (30-34); Mean Corpuscular Volume 90 fl (79-97); Red Blood Count 2.97 M/mm3 (3.65-5.03); Red Cell Distribution Width 16.8 % (13.2-15.2)
[2020-06-06 06:22] LABS: Platelet Count 182 K/mm3 (140-440)
[2020-06-06 06:30] LABS: Albumin 1.9 g/dL (3.9-5); Calcium 7.5 mg/dL (8.4-10.2)
--- NOTE | 2020-06-06 08:18 | Progress Note ---
Assessment and Plan Acute hypoxemic respiratory failure orally intubated on MVS Severe COVID infection Multifocal pneumonia Morbid obesity Acute toxic metabolic encephalopathy AVANI secondary to COVID/vasomotor nephropathy Bilateral pulmonary edema. Bilateral pleural effusions. History of congestive heart failure. Morbid obesity. History of pulmonary hypertension. History of hypertension. Diabetes. Obesity hypoventilation syndrome. Elevated serum inflammatory markers to include D-dimers and LDH levels. AVANI Metabolic acidosis. Oropharyngeal dysphagia. -Gentle IVF while monitoring respiratory status -SAT and SBT today as tolerated -CXR, ABG in am - VAP bundle addressed -Aspiration precautions, HOB >40 - continue lung protective strategies-ARDS. net -Permissive hypercapnic is acceptable - continue bronchodilators with pulmonary hygiene per RT - wean per pulmonary driven protocols otherwise - continue to avoid benzodiazepines, reduce the possibility of delirium - prn analgesia per CPOT score - sedation prn for target RASS 0 to -1 - Continue to wean supplemental oxygen for target O2 sats > 92% - conservative fluid management measures as tolerated by hemodynamics and renal function - Bronchodilators with pulmonary hygiene per RT -Monitor off antibiotics - Accuchecks with glycemic control per SSI (While critically ill target blood glucose of 140-180 mg/dL; avoid hypoglycemia) - Maintenance of sleep-wake cycle, avoid delirium - Avoid nephrotoxins, closely monitor renal function, dose all medications for renal function - Aspiration precautions, HOB >40 - Stress ulcer prophylaxis -Famotidine - VTE prophylaxis on adjust based on D-dimer levels - Mobility protocol, off loading and skin assessment for pressure ulcer prevention - Monitor hemodynamics closely - Supportive transfusions as indicated to keep HgB >7g/dL COVID SPECIFIC INTERVENTIONS -Airborne, contact isolation for COVID per facility protocols - s/p Remdesivir -IV steroids-Dexamethasone -Trend d-dimer,and other inflammatory markers per facility protocol -Convalescent plasma therapy per facility protocol -Continue all supportive care Discussed with the ICU team-RT,RN, Life threatening condition- COVID 19 ARDS acute hypoxemic respiratory failure on MVS Mortality/Morbidity- High Complexity of medical decision making- High CONDITION: CRITICAL PROGNOSIS: GUARDED CODE STATUS: FULL CODE The high probability of a clinically significant, sudden or life-threatening deterioration of the [respiratory & neurology, renal ] system(s) required my full and direct attention, intervention and personal management. The aggregate critical care time was [35] minutes without overlap. Time includes spent on; [x] Data Review and interpretation [x] Patient assessment and monitoring of vital signs [x] Documentation [x] Medication orders and management Subjective Date of service: 06/06/20 Principal diagnosis: Ac hypoxemic resp failure; COVID-19; pneumonia; CHF; Pulm HTN; OHS; DM II Interval history: Patient is seen today for: Ac hypoxemic resp failure; Coronavirus-19 infection; pneumonia; Pulmonary edema; Bilateral pleural effusions; CHF; Morbid obesity; pulmonary hypertension; OHS; DM II Seen and examined at bedside; 24hour events reviewed; nursing and respiratory care staff consulted; no adverse overnight events reported to me; resting peacefully in bed; remains on MVS; no emesis or overt aspiration; no high grade fevers, tolerating tube feeds at goal Off Fentanyl for PSV trial Seen by Renal service, electrolyte profile and urine studies suggestive of pre- renal azotemia Discussed with Renal- plan to give some fluids and monitor response Objective Vital Signs - 12hr 06/05/20 06/05/20 06/05/20 20:21 20:31 20:41 Temperature Pulse Rate 71 67 77 Pulse Rate [ From Monitor] Respiratory 12 14 13 Rate Blood Pressure 180/78 172/68 172/68 O2 Sat by Pulse 100 100 100 Oximetry 06/05/20 06/05/20 06/05/20 20:51 21:00 21:01 Temperature Pulse Rate 68 61 63 Pulse Rate [ From Monitor] Respiratory 12 18 Rate Blood Pressure 181/53 155/64 155/64 O2 Sat by Pulse 100 100 100 Oximetry 06/05/20 06/05/20 06/05/20 21:11 21:21 21:30 Temperature Pulse Rate 60 60 63 Pulse Rate [ From Monitor] Respiratory 13 14 16 Rate Blood Pressure 155/64 133/58 148/65 O2 Sat by Pulse 99 99 100 Oximetry 06/05/20 06/05/20 06/05/20 21:41 21:51 22:00 Temperature Pulse Rate 61 64 65 Pulse Rate [ From Monitor] Respiratory 11 L 9 L 10 L Rate Blood Pressure 148/65 147/61 161/68 O2 Sat by Pulse 99 99 100 Oximetry 06/05/20 06/05/20 06/05/20 22:11 22:14 22:15 Temperature Pulse Rate 61 62 62 Pulse Rate [ From Monitor] Respiratory 14 Rate Blood Pressure 161/68 161/68 161/68 O2 Sat by Pulse 98 Oximetry 06/05/20 06/05/20 06/05/20 22:16 22:21 22:30 Temperature Pulse Rate 62 60 62 Pulse Rate [ From Monitor] Respiratory 11 L 15 Rate Blood Pressure 161/68 147/61 152/63 O2 Sat by Pulse 98 99 Oximetry 06/05/20 06/05/20 06/05/20 22:41 22:51 22:56 Temperature 99.1 F Pulse Rate 62 63 Pulse Rate [ From Monitor] Respiratory 10 L 12 Rate Blood Pressure 152/63 153/58 O2 Sat by Pulse 100 100 Oximetry 06/05/20 06/05/20 06/05/20 23:01 23:11 23:21 Temperature Pulse Rate 61 61 59 L Pulse Rate [ From Monitor] Respiratory 11 L 14 11 L Rate Blood Pressure 151/55 151/55 140/59 O2 Sat by Pulse 98 99 98 Oximetry 06/05/20 06/05/20 06/05/20 23:31 23:41 23:51 Temperature Pulse Rate 58 L 66 58 L Pulse Rate [ From Monitor] Respiratory 11 L 12 18 Rate Blood Pressure 139/58 139/58 142/59 O2 Sat by Pulse 98 99 99 Oximetry 06/06/20 06/06/20 06/06/20 00:00 00:01 00:11 Temperature Pulse Rate 57 L 58 L 58 L Pulse Rate [ 57 L From Monitor] Respiratory 14 16 14 Rate Blood Pressure 139/60 139/60 O2 Sat by Pulse 96 99 98 Oximetry 06/06/20 06/06/20 06/06/20 00:21 00:30 00:41 Temperature Pulse Rate 56 L 57 L 56 L Pulse Rate [ From Monitor] Respiratory 14 14 14 Rate Blood Pressure 142/59 139/57 139/57 O2 Sat by Pulse 98 99 98 Oximetry 06/06/20 06/06/20 06/06/20 00:51 01:00 01:11 Temperature Pulse Rate 57 L 57 L 57 L Pulse Rate [ From Monitor] Respiratory 14 13 13 Rate Blood Pressure 141/58 142/59 142/59 O2 Sat by Pulse 98 99 99 Oximetry 06/06/20 06/06/20 06/06/20 01:21 01:30 01:41 Temperature Pulse Rate 56 L 56 L 56 L Pulse Rate [ From Monitor] Respiratory 14 14 14 Rate Blood Pressure 145/60 143/60 143/60 O2 Sat by Pulse 99 99 99 Oximetry 06/06/20 06/06/20 06/06/20 01:51 02:01 02:11 Temperature Pulse Rate 56 L 55 L 55 L Pulse Rate [ From Monitor] Respiratory 14 14 14 Rate Blood Pressure 145/58 144/59 144/59 O2 Sat by Pulse 99 99 99 Oximetry 06/06/20 06/06/20 06/06/20 02:21 02:31 02:41 Temperature Pulse Rate 55 L 54 L 55 L Pulse Rate [ From Monitor] Respiratory 14 14 15 Rate Blood Pressure 143/59 142/58 142/58 O2 Sat by Pulse 99 99 99 Oximetry 06/06/20 06/06/20 06/06/20 02:51 03:00 03:11 Temperature Pulse Rate 56 L 55 L 54 L Pulse Rate [ From Monitor] Respiratory 14 14 14 Rate Blood Pressure 146/61 142/62 142/62 O2 Sat by Pulse 100 99 99 Oximetry 06/06/20 06/06/20 06/06/20 03:21 03:30 03:35 Temperature 99.4 F Pulse Rate 54 L 55 L Pulse Rate [ From Monitor] Respiratory 14 14 Rate Blood Pressure 144/59 145/61 O2 Sat by Pulse 99 99 Oximetry 06/06/20 06/06/20 06/06/20 03:41 03:51 04:00 Temperature Pulse Rate 56 L 54 L 54 L Pulse Rate [ 54 L From Monitor] Respiratory 17 14 14 Rate Blood Pressure 145/61 145/61 144/63 O2 Sat by Pulse 100 99 99 Oximetry 06/06/20 06/06/20 06/06/20 04:11 04:21 04:30 Temperature Pulse Rate 53 L 53 L 54 L Pulse Rate [ From Monitor] Respiratory 14 14 14 Rate Blood Pressure 144/63 142/61 141/59 O2 Sat by Pulse 99 99 99 Oximetry 06/06/20 06/06/20 06/06/20 04:41 04:51 05:00 Temperature Pulse Rate 53 L 54 L 53 L Pulse Rate [ From Monitor] Respiratory 14 14 14 Rate Blood Pressure 141/59 144/60 144/60 O2 Sat by Pulse 99 99 99 Oximetry 06/06/20 06/06/20 06/06/20 05:11 05:21 05:30 Temperature Pulse Rate 53 L 53 L 54 L Pulse Rate [ From Monitor] Respiratory 14 14 14 Rate Blood Pressure 144/60 141/61 142/61 O2 Sat by Pulse 99 99 99 Oximetry 06/06/20 06/06/20 06/06/20 05:33 05:41 05:51 Temperature Pulse Rate 54 L 53 L 53 L Pulse Rate [ From Monitor] Respiratory 14 14 Rate Blood Pressure 142/61 142/60 O2 Sat by Pulse 100 99 99 Oximetry 06/06/20 06/06/20 06/06/20 06:01 06:11 06:21 Temperature Pulse Rate 52 L 73 Pulse Rate [ From Monitor] Respiratory 14 10 L Rate Blood Pressure 137/57 137/57 206/81 O2 Sat by Pulse 99 98 98 Oximetry 06/06/20 06/06/20 06/06/20 06:31 06:41 06:51 Temperature Pulse Rate 66 64 61 Pulse Rate [ From Monitor] Respiratory 14 15 15 Rate Blood Pressure 137/51 137/51 120/46 O2 Sat by Pulse 99 99 98 Oximetry 06/06/20 08:11 Temperature Pulse Rate 58 L Pulse Rate [ From Monitor] Respiratory Rate Blood Pressure 118/47 O2 Sat by Pulse 98 Oximetry Constitutional: no acute distress, other (elderly looking obese female riding set rate on MVS at rest) Eyes: non-icteric ENT: oropharynx moist, other (ETT 23 cm AYAN) Neck: supple, no lymphadenopathy, no JVD, other (ETT 23 cm AYAN) Effort: mildly labored Ascultation: Bilateral: clear, diminished breath sounds, rhonchi Percussion: Bilateral: not dull Cardiovascular: regular rate and rhythm Gastrointestinal: normoactive bowel sounds, soft, non-tender, non-distended Integumentary: normal Extremities: no cyanosis, no edema, pink and warm, pulses normal, no ischemia or petechiae Neurologic: non-focal exam (grossly), pupils equal and round, unable to assess Psychiatric: other (unable to assess re: AMS) CBC and BMP: 06/07/20 04:00 06/07/20 04:00 ABG, PT/INR, D-dimer: ABG ABG pH 7.286 pH Units (7.350-7.450) L 06/05/20 05:00 ABG pCO2 42.8 mm Hg 06/05/20 05:00 ABG pO2 96.2 mm Hg (80.0-90.0) H 06/05/20 05:00 ABG O2 Saturation 97.0 % (95.0-99.0) 06/05/20 05:00 PT/INR, D-dimer PT 14.2 Sec. (12.2-14.9) 05/29/20 15:10 INR 1.08 (0.87-1.13) 05/29/20 15:10 D-Dimer 414.52 ng/mlDDU (0-234) H 06/04/20 04:19 Abnormal lab findings: Abnormal Labs 05/28/20 05/28/20 05/28/20 13:29 13:47 13:47 WBC RBC Hgb Hct RDW 15.3 H Lymph % (Auto) [facility] % (Auto) Lymph # [facility] # Seg Neutrophils % Seg Neutrophils # D-Dimer Heparin Anti-Xa Level ABG pH ABG pO2 ABG HCO3 ABG O2 Saturation ABG Base Excess ABG Hemoglobin VBG pH Oxyhemoglobin Sodium Potassium 6.6 H* Chloride 109.2 H Carbon Dioxide 17 L BUN 29 H Creatinine 1.3 H Glucose 265 H POC Glucose 248 H Lactic Acid Calcium 8.1 L AST 63 H Lactate Dehydrogenase Total Creatine Kinase 301 H CK-MB (CK-2) 4.3 H C-Reactive Protein Total Protein 5.4 L Albumin 2.6 L Urine WBC (Auto) Urine Creatinine Urine Total Protein Coronavirus (PCR) 05/28/20 05/28/20 05/28/20 13:47 13:47 14:46 WBC RBC Hgb Hct RDW Lymph % (Auto) [facility] % (Auto) Lymph # [facility] # Seg Neutrophils % Seg Neutrophils # D-Dimer Heparin Anti-Xa Level ABG pH ABG pO2 ABG HCO3 ABG O2 Saturation ABG Base Excess ABG Hemoglobin VBG pH 7.152 L* Oxyhemoglobin Sodium Potassium 7.2 H* Chloride Carbon Dioxide BUN Creatinine Glucose POC Glucose Lactic Acid 3.40 H* Calcium AST Lactate Dehydrogenase Total Creatine Kinase CK-MB (CK-2) C-Reactive Protein Total Protein Albumin Urine WBC (Auto) Urine Creatinine Urine Total Protein Coronavirus (PCR) 05/28/20 05/28/20 05/28/20 15:33 15:33 15:51 WBC RBC Hgb Hct RDW Lymph % (Auto) [facility] % (Auto) Lymph # [facility] # Seg Neutrophils % Seg Neutrophils # D-Dimer 8780.43 H Heparin Anti-Xa Level ABG pH 7.284 L ABG pO2 273.0 H ABG HCO3 ABG O2 Saturation 99.4 H ABG Base Excess -6.1 L ABG Hemoglobin 17.2 H VBG pH Oxyhemoglobin Sodium Potassium Chloride Carbon Dioxide BUN Creatinine Glucose 152 H POC Glucose Lactic Acid Calcium AST Lactate Dehydrogenase 365 H Total Creatine Kinase CK-MB (CK-2) C-Reactive Protein Total Protein Albumin Urine WBC (Auto) Urine Creatinine Urine Total Protein Coronavirus (PCR) 05/28/20 05/28/20 05/28/20 16:30 20:41 23:20 WBC RBC Hgb Hct RDW Lymph % (Auto) [facility] % (Auto) Lymph # [facility] # Seg Neutrophils % Seg Neutrophils # D-Dimer Heparin Anti-Xa Level ABG pH ABG pO2 ABG HCO3 ABG O2 Saturation ABG Base Excess ABG Hemoglobin VBG pH Oxyhemoglobin Sodium Potassium Chloride Carbon Dioxide BUN Creatinine Glucose POC Glucose 225 H 224 H Lactic Acid Calcium AST Lactate Dehydrogenase Total Creatine Kinase CK-MB (CK-2) C-Reactive Protein Total Protein Albumin Urine WBC (Auto) 17.0 H Urine Creatinine Urine Total Protein Coronavirus (PCR) 05/28/20 05/29/20 05/29/20 Unknown 04:35 04:43 WBC RBC 3.48 L Hgb 9.8 L Hct 29.4 L RDW 16.0 H Lymph % (Auto) 7.[address] [facility] % (Auto) Lymph # 0.[address] [facility] # Seg Neutrophils % 89.1 H Seg Neutrophils # 8.1 H D-Dimer Heparin Anti-Xa Level ABG pH ABG pO2 ABG HCO3 19.3 L ABG O2 Saturation ABG Base Excess -4.5 L ABG Hemoglobin 9.7 L VBG pH Oxyhemoglobin Sodium Potassium Chloride Carbon Dioxide BUN Creatinine Glucose POC Glucose Lactic Acid Calcium AST Lactate Dehydrogenase Total Creatine Kinase CK-MB (CK-2) C-Reactive Protein Total Protein Albumin Urine WBC (Auto) Urine Creatinine Urine Total Protein Coronavirus (PCR) Positive A 05/29/20 05/29/20 05/29/20 04:43 15:10 17:17 WBC RBC Hgb 9.3 L Hct 28.7 L RDW Lymph % (Auto) [facility] % (Auto) Lymph # [facility] # Seg Neutrophils % Seg Neutrophils # D-Dimer Heparin Anti-Xa Level ABG pH ABG pO2 ABG HCO3 ABG O2 Saturation ABG Base Excess ABG Hemoglobin VBG pH Oxyhemoglobin Sodium Potassium Chloride 110.2 H Carbon Dioxide 18 L BUN 32 H Creatinine 1.4 H Glucose 180 H POC Glucose 147 H Lactic Acid Calcium AST Lactate Dehydrogenase Total Creatine Kinase CK-MB (CK-2) C-Reactive Protein Total Protein Albumin Urine WBC (Auto) Urine Creatinine Urine Total Protein Coronavirus (PCR) 05/30/20 05/30/20 05/30/20 00:08 00:12 04:15 WBC RBC Hgb Hct RDW Lymph % (Auto) [facility] % (Auto) Lymph # [facility] # Seg Neutrophils % Seg Neutrophils # D-Dimer Heparin Anti-Xa Level 0.71 H ABG pH 7.460 H ABG pO2 106.0 H ABG HCO3 18.9 L ABG O2 Saturation ABG Base Excess -4.4 L ABG Hemoglobin 6.8 L VBG pH Oxyhemoglobin Sodium Potassium Chloride Carbon Dioxide BUN Creatinine Glucose POC Glucose 195 H Lactic Acid Calcium AST Lactate Dehydrogenase Total Creatine Kinase CK-MB (CK-2) C-Reactive Protein Total Protein Albumin Urine WBC (Auto) Urine Creatinine Urine Total Protein Coronavirus (PCR) 05/30/20 05/30/20 05/30/20 06:07 08:37 12:33 WBC RBC Hgb Hct RDW Lymph % (Auto) [facility] % (Auto) Lymph # [facility] # Seg Neutrophils % Seg Neutrophils # D-Dimer Heparin Anti-Xa Level 0.85 H ABG pH ABG pO2 ABG HCO3 ABG O2 Saturation ABG Base Excess ABG Hemoglobin VBG pH Oxyhemoglobin Sodium Potassium Chloride Carbon Dioxide BUN Creatinine Glucose POC Glucose 182 H 187 H Lactic Acid Calcium AST Lactate Dehydrogenase Total Creatine Kinase CK-MB (CK-2) C-Reactive Protein Total Protein Albumin Urine WBC (Auto) Urine Creatinine Urine Total Protein Coronavirus (PCR) 05/30/20 05/30/20 05/30/20 15:58 17:57 23:36 WBC RBC Hgb Hct RDW Lymph % (Auto) [facility] % (Auto) Lymph # [facility] # Seg Neutrophils % Seg Neutrophils # D-Dimer Heparin Anti-Xa Level 1.03 H ABG pH ABG pO2 ABG HCO3 ABG O2 Saturation ABG Base Excess ABG Hemoglobin VBG pH Oxyhemoglobin Sodium Potassium Chloride Carbon Dioxide BUN Creatinine Glucose POC Glucose 208 H 185 H Lactic Acid Calcium AST Lactate Dehydrogenase Total Creatine Kinase CK-MB (CK-2) C-Reactive Protein Total Protein Albumin Urine WBC (Auto) Urine Creatinine Urine Total Protein Coronavirus (PCR) 05/31/20 05/31/20 05/31/20 02:16 03:55 06:16 WBC RBC Hgb 9.2 L Hct 27.5 L RDW Lymph % (Auto) [facility] % (Auto) Lymph # [facility] # Seg Neutrophils % Seg Neutrophils # D-Dimer Heparin Anti-Xa Level ABG pH ABG pO2 94.7 H ABG HCO3 18.6 L ABG O2 Saturation ABG Base Excess -5.5 L ABG Hemoglobin 7.9 L VBG pH Oxyhemoglobin Sodium Potassium Chloride Carbon Dioxide BUN Creatinine Glucose POC Glucose 160 H Lactic Acid Calcium AST Lactate Dehydrogenase Total Creatine Kinase CK-MB (CK-2) C-Reactive Protein Total Protein Albumin Urine WBC (Auto) Urine Creatinine Urine Total Protein Coronavirus (PCR) 05/31/20 05/31/20 05/31/20 12:20 13:03 18:13 WBC RBC Hgb Hct RDW Lymph % (Auto) [facility] % (Auto) Lymph # [facility] # Seg Neutrophils % Seg Neutrophils # D-Dimer Heparin Anti-Xa Level ABG pH ABG pO2 ABG HCO3 ABG O2 Saturation ABG Base Excess ABG Hemoglobin VBG pH Oxyhemoglobin Sodium Potassium Chloride Carbon Dioxide 18 L BUN 48 H Creatinine 1.6 H Glucose 115 H POC Glucose 128 H 159 H Lactic Acid Calcium 8.3 L AST Lactate Dehydrogenase Total Creatine Kinase CK-MB (CK-2) C-Reactive Protein Total Protein 5.4 L Albumin 2.4 L Urine WBC (Auto) Urine Creatinine Urine Total Protein Coronavirus (PCR) 05/31/20 06/01/20 06/01/20 23:51 04:00 05:48 WBC RBC Hgb Hct RDW Lymph % (Auto) [facility] % (Auto) Lymph # [facility] # Seg Neutrophils % Seg Neutrophils # D-Dimer Heparin Anti-Xa Level ABG pH ABG pO2 109.8 H ABG HCO3 18.8 L ABG O2 Saturation ABG Base Excess -5.9 L ABG Hemoglobin 7.8 L VBG pH Oxyhemoglobin Sodium Potassium Chloride Carbon Dioxide BUN Creatinine Glucose POC Glucose 171 H 133 H Lactic Acid Calcium AST Lactate Dehydrogenase Total Creatine Kinase CK-MB (CK-2) C-Reactive Protein Total Protein Albumin Urine WBC (Auto) Urine Creatinine Urine Total Protein Coronavirus (PCR) 06/01/20 06/01/20 06/02/20 12:28 17:29 00:08 WBC RBC Hgb Hct RDW Lymph % (Auto) [facility] % (Auto) Lymph # [facility] # Seg Neutrophils % Seg Neutrophils # D-Dimer Heparin Anti-Xa Level ABG pH ABG pO2 ABG HCO3 ABG O2 Saturation ABG Base Excess ABG Hemoglobin VBG pH Oxyhemoglobin Sodium Potassium Chloride Carbon Dioxide BUN Creatinine Glucose POC Glucose 199 H 209 H 162 H Lactic Acid Calcium AST Lactate Dehydrogenase Total Creatine Kinase CK-MB (CK-2) C-Reactive Protein Total Protein Albumin Urine WBC (Auto) Urine Creatinine Urine Total Protein Coronavirus (PCR) 06/02/20 06/02/20 06/02/20 04:20 04:20 04:44 WBC RBC Hgb 10.0 L Hct RDW Lymph % (Auto) [facility] % (Auto) Lymph # [facility] # Seg Neutrophils % Seg Neutrophils # D-Dimer Heparin Anti-Xa Level 0.10 L ABG pH ABG pO2 150.6 H ABG HCO3 ABG O2 Saturation ABG Base Excess -4.1 L ABG Hemoglobin 11.8 L VBG pH Oxyhemoglobin Sodium Potassium Chloride Carbon Dioxide BUN Creatinine Glucose POC Glucose Lactic Acid Calcium AST Lactate Dehydrogenase Total Creatine Kinase CK-MB (CK-2) C-Reactive Protein Total Protein Albumin Urine WBC (Auto) Urine Creatinine Urine Total Protein Coronavirus (PCR) 06/02/20 06/02/20 06/02/20 05:53 12:04 13:49 WBC RBC Hgb Hct RDW Lymph % (Auto) [facility] % (Auto) Lymph # [facility] # Seg Neutrophils % Seg Neutrophils # D-Dimer Heparin Anti-Xa Level 0.28 L ABG pH ABG pO2 ABG HCO3 ABG O2 Saturation ABG Base Excess ABG Hemoglobin VBG pH Oxyhemoglobin Sodium Potassium Chloride Carbon Dioxide BUN Creatinine Glucose POC Glucose 149 H 220 H Lactic Acid Calcium AST Lactate Dehydrogenase Total Creatine Kinase CK-MB (CK-2) C-Reactive Protein Total Protein Albumin Urine WBC (Auto) Urine Creatinine Urine Total Protein Coronavirus (PCR) 06/02/20 06/02/20 06/03/20 13:49 18:31 00:42 WBC RBC Hgb Hct RDW Lymph % (Auto) [facility] % (Auto) Lymph # [facility] # Seg Neutrophils % Seg Neutrophils # D-Dimer 769.68 H Heparin Anti-Xa Level ABG pH ABG pO2 ABG HCO3 ABG O2 Saturation ABG Base Excess ABG Hemoglobin VBG pH Oxyhemoglobin Sodium Potassium Chloride Carbon Dioxide BUN Creatinine Glucose POC Glucose 225 H 212 H Lactic Acid Calcium AST Lactate Dehydrogenase Total Creatine Kinase CK-MB (CK-2) C-Reactive Protein Total Protein Albumin Urine WBC (Auto) Urine Creatinine Urine Total Protein Coronavirus (PCR) 06/03/20 06/03/20 06/03/20 05:16 05:16 05:25 WBC 11.4 H RBC Hgb Hct RDW 16.4 H Lymph % (Auto) [facility] % (Auto) Lymph # [facility] # Seg Neutrophils % Seg Neutrophils # D-Dimer Heparin Anti-Xa Level ABG pH ABG pO2 160.9 H ABG HCO3 19.4 L ABG O2 Saturation ABG Base Excess -4.9 L ABG Hemoglobin 7.0 L VBG pH Oxyhemoglobin Sodium Potassium Chloride Carbon Dioxide 18 L BUN 65 H Creatinine 2.0 H Glucose 175 H POC Glucose Lactic Acid Calcium 8.0 L AST Lactate Dehydrogenase Total Creatine Kinase CK-MB (CK-2) C-Reactive Protein Total Protein 5.5 L Albumin 2.2 L Urine WBC (Auto) Urine Creatinine Urine Total Protein Coronavirus (PCR) 06/03/20 06/03/20 06/03/20 06:07 11:58 18:24 WBC RBC Hgb Hct RDW Lymph % (Auto) [facility] % (Auto) Lymph # [facility] # Seg Neutrophils % Seg Neutrophils # D-Dimer Heparin Anti-Xa Level ABG pH ABG pO2 ABG HCO3 ABG O2 Saturation ABG Base Excess ABG Hemoglobin VBG pH Oxyhemoglobin Sodium Potassium Chloride Carbon Dioxide BUN Creatinine Glucose POC Glucose 177 H 163 H 211 H Lactic Acid Calcium AST Lactate Dehydrogenase Total Creatine Kinase CK-MB (CK-2) C-Reactive Protein Total Protein Albumin Urine WBC (Auto) Urine Creatinine Urine Total Protein Coronavirus (PCR) 06/03/20 06/03/20 06/04/20 21:50 Unknown 00:26 WBC RBC Hgb Hct RDW Lymph % (Auto) [facility] % (Auto) Lymph # [facility] # Seg Neutrophils % Seg Neutrophils # D-Dimer Heparin Anti-Xa Level ABG pH ABG pO2 ABG HCO3 ABG O2 Saturation ABG Base Excess ABG Hemoglobin VBG pH Oxyhemoglobin Sodium 135 L Potassium Chloride Carbon Dioxide 18 L BUN Creatinine Glucose POC Glucose 241 H Lactic Acid Calcium AST Lactate Dehydrogenase Total Creatine Kinase CK-MB (CK-2) C-Reactive Protein Total Protein Albumin Urine WBC (Auto) 11.0 H Urine Creatinine Urine Total Protein Coronavirus (PCR) 06/04/20 06/04/20 06/04/20 03:35 04:19 04:19 WBC RBC 3.15 L Hgb 8.9 L Hct 26.8 L D RDW 15.9 H Lymph % (Auto) 6.[address] [facility] % (Auto) Lymph # 0.[address] [facility] # Seg Neutrophils % 86.6 H Seg Neutrophils # 9.1 H D-Dimer Heparin Anti-Xa Level ABG pH 7.331 L ABG pO2 ABG HCO3 ABG O2 Saturation ABG Base Excess -4.7 L ABG Hemoglobin 11.0 L VBG pH Oxyhemoglobin 93.9 L Sodium 136 L Potassium Chloride Carbon Dioxide 20 L BUN 73 H Creatinine 2.0 H Glucose 192 H POC Glucose Lactic Acid Calcium 8.0 L AST Lactate Dehydrogenase 271 H Total Creatine Kinase CK-MB (CK-2) C-Reactive Protein 2.20 H Total Protein 5.0 L Albumin 2.0 L Urine WBC (Auto) Urine Creatinine Urine Total Protein Coronavirus (PCR) 06/04/20 06/04/20 06/04/20 04:19 05:51 11:48 WBC RBC Hgb Hct RDW Lymph % (Auto) [facility] % (Auto) Lymph # [facility] # Seg Neutrophils % Seg Neutrophils # D-Dimer 414.52 H Heparin Anti-Xa Level ABG pH ABG pO2 ABG HCO3 ABG O2 Saturation ABG Base Excess ABG Hemoglobin VBG pH Oxyhemoglobin Sodium Potassium Chloride Carbon Dioxide BUN Creatinine Glucose POC Glucose 179 H 213 H Lactic Acid Calcium AST Lactate Dehydrogenase Total Creatine Kinase CK-MB (CK-2) C-Reactive Protein Total Protein Albumin Urine WBC (Auto) Urine Creatinine Urine Total Protein Coronavirus (PCR) 06/04/20 06/05/20 06/05/20 18:25 00:16 05:00 WBC RBC Hgb Hct RDW Lymph % (Auto) [facility] % (Auto) Lymph # [facility] # Seg Neutrophils % Seg Neutrophils # D-Dimer Heparin Anti-Xa Level ABG pH 7.286 L ABG pO2 96.2 H ABG HCO3 ABG O2 Saturation ABG Base Excess -6.3 L ABG Hemoglobin 8.8 L VBG pH Oxyhemoglobin 94.8 L Sodium Potassium Chloride Carbon Dioxide BUN Creatinine Glucose POC Glucose 238 H 183 H Lactic Acid Calcium AST Lactate Dehydrogenase Total Creatine Kinase CK-MB (CK-2) C-Reactive Protein Total Protein Albumin Urine WBC (Auto) Urine Creatinine Urine Total Protein Coronavirus (PCR) 06/05/20 06/05/20 06/05/20 05:39 07:25 07:25 WBC RBC 2.97 L Hgb 8.7 L Hct 25.7 L RDW 16.0 H Lymph % (Auto) 8.[address] [facility] % (Auto) 13.3 H Lymph # 0.[address] [facility] # 1.3 H Seg Neutrophils % 77.3 H Seg Neutrophils # D-Dimer Heparin Anti-Xa Level ABG pH ABG pO2 ABG HCO3 ABG O2 Saturation ABG Base Excess ABG Hemoglobin VBG pH Oxyhemoglobin Sodium 133 L Potassium Chloride Carbon Dioxide 17 L BUN 89 H Creatinine 2.8 H Glucose 176 H POC Glucose 149 H Lactic Acid Calcium 7.7 L AST Lactate Dehydrogenase Total Creatine Kinase CK-MB (CK-2) C-Reactive Protein Total Protein 4.2 L Albumin 1.9 L Urine WBC (Auto) Urine Creatinine Urine Total Protein Coronavirus (PCR) 06/05/20 06/05/20 06/05/20 07:25 12:05 15:41 WBC RBC Hgb Hct RDW Lymph % (Auto) [facility] % (Auto) Lymph # [facility] # Seg Neutrophils % Seg Neutrophils # D-Dimer Heparin Anti-Xa Level 0.76 H 0.81 H ABG pH ABG pO2 ABG HCO3 ABG O2 Saturation ABG Base Excess ABG Hemoglobin VBG pH Oxyhemoglobin Sodium Potassium Chloride Carbon Dioxide BUN Creatinine Glucose POC Glucose 198 H Lactic Acid Calcium AST Lactate Dehydrogenase Total Creatine Kinase CK-MB (CK-2) C-Reactive Protein Total Protein Albumin Urine WBC (Auto) Urine Creatinine Urine Total Protein Coronavirus (PCR) 06/05/20 06/05/20 06/06/20 18:08 23:25 04:00 WBC RBC Hgb Hct RDW Lymph % (Auto) [facility] % (Auto) Lymph # [facility] # Seg Neutrophils % Seg Neutrophils # D-Dimer Heparin Anti-Xa Level ABG pH ABG pO2 ABG HCO3 ABG O2 Saturation ABG Base Excess ABG Hemoglobin VBG pH Oxyhemoglobin Sodium Potassium Chloride Carbon Dioxide BUN Creatinine Glucose POC Glucose 223 H 169 H Lactic Acid Calcium AST Lactate Dehydrogenase Total Creatine Kinase CK-MB (CK-2) C-Reactive Protein Total Protein Albumin Urine WBC (Auto) 15.0 H Urine Creatinine Urine Total Protein Coronavirus (PCR) 06/06/20 06/06/20 06/06/20 04:00 05:33 05:38 WBC RBC 2.97 L Hgb 8.7 L Hct 26.8 L RDW 16.8 H Lymph % (Auto) [facility] % (Auto) Lymph # [facility] # Seg Neutrophils % Seg Neutrophils # D-Dimer Heparin Anti-Xa Level ABG pH ABG pO2 ABG HCO3 ABG O2 Saturation ABG Base Excess ABG Hemoglobin VBG pH Oxyhemoglobin Sodium Potassium Chloride Carbon Dioxide BUN Creatinine Glucose POC Glucose 186 H Lactic Acid Calcium AST Lactate Dehydrogenase Total Creatine Kinase CK-MB (CK-2) C-Reactive Protein Total Protein Albumin Urine WBC (Auto) Urine Creatinine 82.2 H Urine Total Protein 196 H Coronavirus (PCR) 06/06/20 05:38 WBC RBC Hgb Hct RDW Lymph % (Auto) [facility] % (Auto) Lymph # [facility] # Seg Neutrophils % Seg Neutrophils # D-Dimer Heparin Anti-Xa Level ABG pH ABG pO2 ABG HCO3 ABG O2 Saturation ABG Base Excess ABG Hemoglobin VBG pH Oxyhemoglobin Sodium 134 L Potassium 5.2 H Chloride Carbon Dioxide 18 L BUN 97 H Creatinine 2.5 H Glucose 193 H POC Glucose Lactic Acid Calcium 7.5 L AST Lactate Dehydrogenase Total Creatine Kinase CK-MB (CK-2) C-Reactive Protein Total Protein 4.1 L Albumin 1.9 L Urine WBC (Auto) Urine Creatinine Urine Total Protein Coronavirus (PCR) Chest x-ray: image reviewed Allied health notes reviewed: nursing
[2020-06-06] MEDS: GLYCOPYRROLATE 1 MG TAB PO SCH ×3 (08:35→22:50)
--- NOTE | 2020-06-06 09:19 | Consultation ---
History of Present Illness - Reason for Consult Consult date: 06/06/20 acute renal failure Requesting physician: BHARAT PRICE - History of Present Illness This is a 64 yo F with past medical history of HTN, Type 2 DM, proteinuria, CKD, Diastolic CHF, Obesity Hypoventilation who was initially admitted on 05/28/20 after BIBEMS for acute respiratory failure. In route to [facility] patient developed cardiac arrest and treated with ACLS protocol with ROSC. Patient was intubated and placed on ventilatory support. CXR showed bilateral pneumonia, LDH/ferritin/ddimer were all elevated and patient was tested positive for COVID19. Course was complicated by AVANI with progressive rise of BUN/Cr from 29.1.3mg/dl on admission to 89/2.8 on 06/05. renal consult is requested for management of AVANI. based on chart review pt has history of underlying CKD with baseline Cr around 1.4 along with significant proteinuria, most likely secondary to presumed diabetic nephropathy. Past History Past Medical History: diabetes, heart failure, hypertension, other (See HPI) Past Surgical History: No surgical history, Other (Reviewed) Social history: . denies: smoking, alcohol abuse, prescription drug abuse Family history: diabetes, hypertension Medications and Allergies Allergies Allergy/AdvReac Type Severity Reaction Status Date / Time No Known Allergies Allergy Verified 01/21/20 12:28 Home Medications Medication Instructions Recorded Confirmed Last Taken Type AtorvaSTATin [Lipitor] 20 mg PO QHS 05/12/20 05/29/20 Unknown History lisinopriL [Zestril TAB] 40 mg PO QDAY 05/12/20 05/29/20 Unknown History metFORMIN [Glucophage] 850 mg PO BID 05/12/20 05/29/20 Unknown History Acetaminophen [Acetaminophen TAB] 650 mg PO Q4H PRN tablet 05/13/20 05/29/20 Unknown Rx Dicyclomine [Bentyl] 20 mg PO BID #20 tablet 05/13/20 05/29/20 Unknown Rx Famotidine [Pepcid] 20 mg PO BID #30 tablet 05/13/20 05/29/20 Unknown Rx carvediloL [Coreg] 6.25 mg PO BID #60 05/13/20 05/29/20 Unknown Rx Active Meds: Active Medications Albumin Human (Alburx 25% (Albumin)) 12.5 gm IV Q12HR [facility] Stop: 06/07/20 22:01 Amlodipine Besylate (Amlodipine) 10 mg PO DAILY [facility] Last Admin: 06/05/20 09:26 Dose: 10 mg Documented by: Lipase/Protease/Amylase (Pancreaze Dr 10,500 Unit) 1 each FEEDTUBE PRN PRN PRN Reason: For Clogged Feeding Tube Carvedilol (Coreg) 12.5 mg PO BID [facility] Last Admin: 06/05/20 22:15 Dose: 12.5 mg Documented by: Clonidine HCl (Catapres) 0.1 mg PO Q8HR [facility] Last Admin: 06/06/20 05:41 Dose: 0.1 mg Documented by: Clonidine HCl (Catapres) 0.2 mg PO Q8HR [facility] Last Admin: 06/06/20 05:41 Dose: 0.2 mg Documented by: Dexamethasone (Decadron) 6 mg PO DAILY [facility] Stop: 06/07/20 10:01 Last Admin: 06/05/20 09:27 Dose: 6 mg Documented by: Fentanyl (Sublimaze) 50 mcg IV Q10MIN PRN PRN Reason: ANALGESIA Glycopyrrolate (Robinul) 1 mg PO TID [facility] Last Admin: 06/06/20 08:35 Dose: 1 mg Documented by: Hydralazine HCl (Apresoline) 50 mg PO Q8HR [facility] Last Admin: 06/06/20 05:41 Dose: 50 mg Documented by: Hydrophilic Ointment (Vaseline Lip Therapy) 1 applic TP Q2HR PRN PRN Reason: Dry Lips Heparin Sodium/Sodium Chloride (Heparin/ 0.45% Nacl-25,000 Unit/500 Ml) 25,000 unit in 500 mls @ 30 mls/hr IV TITR [facility]; Protocol Last Admin: 06/05/20 22:32 Dose: 1,250 units/hr, 25 mls/hr Documented by: Fentanyl Citrate (Fentanyl Drip Premix) 2,000 mcg in 100 mls @ 6.095 mls/hr IV TITR [facility]; Protocol Last Titration: 06/06/20 08:35 Dose: 0 mcg/kg/hr, 0 mls/hr Documented by: Nicardipine HCl 50 mg/ Sodium (Chloride) 250 mls @ 25 mls/hr IV TITR [facility]; Protocol Last Titration: 06/02/20 11:23 Dose: 0 mg/hr, 0 mls/hr Documented by: Sodium Chloride (Nacl 0.9% 250ml) 250 mls @ 125 mls/hr IV ONCE ONE Stop: 06/06/20 11:59 Insulin Human Lispro (Humalog) 0 unit SUB-Q Q6H [facility]; Protocol Last Admin: 06/06/20 08:19 Dose: Not Given Documented by: Labetalol HCl (Labetalol) 20 mg IV Q4H PRN PRN Reason: HYPERTENSION Lansoprazole (Prevacid Solutab) 30 mg FEEDTUBE BID [facility] Last Admin: 06/05/20 22:16 Dose: 30 mg Documented by: Levetiracetam (Keppra) 500 mg PO BID [facility] Last Admin: 06/05/20 22:16 Dose: 500 mg Documented by: Multi-Ingred Cream/Lotion/Oil/Oint (Artificial Tears Ophth Oint) 1 applic OU Q4HR PRN PRN Reason: Dry Eye(s) Ondansetron HCl (Zofran) 4 mg IV Q8H PRN PRN Reason: Nausea And Vomiting Quetiapine Fumarate (Seroquel) 200 mg PO BID [facility] Last Admin: 06/05/20 22:16 Dose: 200 mg Documented by: Scopolamine (Transderm-Scop) 1 each TD Q3D [facility] Last Admin: 06/05/20 14:15 Dose: 1 each Documented by: Senigor (Senokot) 17.6 mg FEEDTUBE BID [facility] Last Admin: 06/05/20 22:16 Dose: 17.6 mg Documented by: Simple Syrup (Simple Syrup) 15 ml FEEDTUBE PRN PRN PRN Reason: Hypoglycemia Simple Syrup (Simple Syrup) 30 ml FEEDTUBE PRN PRN PRN Reason: Hypoglycemia Sodium Bicarbonate (Sodium Bicarbonate) 325 mg FEEDTUBE PRN PRN PRN Reason: For Clogged Feeding Tube Sodium Chloride (Sodium Chloride Flush Syringe 10 Ml) 10 ml IV BID [facility] Last Admin: 06/06/20 08:18 Dose: Not Given Documented by: Sodium Chloride (Sodium Chloride Flush Syringe 10 Ml) 10 ml IV PRN PRN PRN Reason: LINE FLUSH Review of Systems ROS unobtainable: due to endotracheal tube, due to mental status Exam - Vital Signs Vital signs: Vital Signs BP 239/126 05/28/20 13:15 - Physical Exam Narrative exam: Exam reviewed in chart d/t PPE preservation and risk of transmission Results - Lab Results 06/06/20 05:38 06/06/20 05:38 Most recent lab results ABG pH 7.286 pH Units (7.350-7.450) L 06/05/20 05:00 ABG pCO2 42.8 mm Hg 06/05/20 05:00 ABG pO2 96.2 mm Hg (80.0-90.0) H 06/05/20 05:00 ABG HCO3 20.0 mmol/L (20.0-26.0) 06/05/20 05:00 ABG O2 Saturation 97.0 % (95.0-99.0) 06/05/20 05:00 Calcium 7.5 mg/dL (8.4-10.2) L 06/06/20 05:38 Urine Creatinine 82.2 mg/dL (0.1-20.0) H 06/06/20 04:00 Urine Sodium 20 mmol/L 06/06/20 04:00 Urine Total Protein 196 mg/dL (5-11.8) H 06/06/20 04:00 Assessment and Plan - Patient Problems (1) Acute kidney injury (AVANI) with acute tubular necrosis (ATN) Current Visit: Yes Status: Acute Plan to address problem: AVANI most likely secondary to ATN in the setting of COIVD 19 pneumonia/s/p cardiac arrest. urine Na was low at 20 indicating superimposed intravascular depetion/pre-renal azotemia. Will bolus with NS 250 mls x 1, to give albumim 12.5g bid x 4 doses to increase oncotic pressure. Started Na bicarb 650mg bid for treatment of met acidosis. No urgent indication for renal replacement therapy at present, however will consider if pt becomes more oliguric along with worsening azotemia, acidosis/hyperkalemia despite above treatment. Cont supportive care for ATN, avoid further nephrotoxins, IV contrast. (2) Pneumonia due to COVID-19 virus Current Visit: Yes Status: Acute Plan to address problem: management as per ID/pulm/CCM (3) Acute hypoxemic respiratory failure Current Visit: Yes Status: Acute Plan to address problem: on ventilator support (4) Metabolic acidosis Current Visit: Yes Status: Acute Plan to address problem: started Na bicarb 650mg bid (5) Hyperkalemia Current Visit: Yes Status: Acute Plan to address problem: pt with h/o CKD 2/2 presumed diabetic nephropathy and proteinuria. 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 Will consider treatment with fludrocortisone once volume/respiratory status is stabilized. cont 2g K renal diet. Na bicarb ordered to correct metabolic acidosis.
--- NOTE | 2020-06-06 09:48 | Progress Note ---
Subjective Date of service: 06/06/20 Principal diagnosis: Ac hypoxemic resp failure; COVID-19; pneumonia; CHF; Pulm HTN; OHS; DM II Interval history: Assessment and Plan follow-up Echo EF 45-50%, mild to mod LVH No arrhythmia on tele at this itime - Patient Problems (1) Respiratory failure Current Visit: Yes Status: Acute Plan to address problem: Severe Covid infection Supportive management No acute cardiac intervention Objective Vital Signs Temp Pulse Pulse Resp BP Pulse Ox 06/06/20 09:11 58 L 12 134/51 100 06/06/20 09:00 59 L 11 L 134/51 100 06/06/20 08:51 58 L 14 129/51 100 06/06/20 08:41 58 L 13 139/53 100 06/06/20 08:30 60 16 139/53 100 06/06/20 08:21 64 10 L 127/58 100 06/06/20 08:19 65 12 127/58 100 06/06/20 08:11 58 L 12 118/47 98 06/06/20 08:00 57 L 57 L 15 118/47 98 06/06/20 07:51 57 L 14 124/51 98 06/06/20 07:41 57 L 14 122/48 98 06/06/20 07:30 59 L 14 122/48 98 06/06/20 07:21 59 L 13 125/50 98 06/06/20 07:11 61 15 122/45 98 06/06/20 07:00 61 14 122/45 98 06/06/20 06:51 61 15 120/46 98 06/06/20 06:41 64 15 137/51 99 06/06/20 06:31 66 14 137/51 99 06/06/20 06:21 73 10 L 206/81 98 06/06/20 06:11 137/57 98 06/06/20 06:01 52 L 14 137/57 99 06/06/20 05:51 53 L 14 142/60 99 06/06/20 05:41 53 L 14 142/61 99 06/06/20 05:33 54 L 100 06/06/20 05:30 54 L 14 142/61 99 06/06/20 05:21 53 L 14 141/61 99 06/06/20 05:11 53 L 14 144/60 99 06/06/20 05:00 53 L 14 144/60 99 06/06/20 04:51 54 L 14 144/60 99 06/06/20 04:41 53 L 14 141/59 99 06/06/20 04:30 54 L 14 141/59 99 06/06/20 04:21 53 L 14 142/61 99 06/06/20 04:11 53 L 14 144/63 99 06/06/20 04:00 54 L 54 L 14 144/63 99 06/06/20 03:51 54 L 14 145/61 99 06/06/20 03:41 56 L 17 145/61 100 06/06/20 03:35 99.4 F 06/06/20 03:30 55 L 14 145/61 99 06/06/20 03:21 54 L 14 144/59 99 06/06/20 03:11 54 L 14 142/62 99 06/06/20 03:00 55 L 14 142/62 99 06/06/20 02:51 56 L 14 146/61 100 06/06/20 02:41 55 L 15 142/58 99 06/06/20 02:31 54 L 14 142/58 99 06/06/20 02:21 55 L 14 143/59 99 06/06/20 02:11 55 L 14 144/59 99 06/06/20 02:01 55 L 14 144/59 99 06/06/20 01:51 56 L 14 145/58 99 06/06/20 01:41 56 L 14 143/60 99 06/06/20 01:30 56 L 14 143/60 99 06/06/20 01:21 56 L 14 145/60 99 06/06/20 01:11 57 L 13 142/59 99 06/06/20 01:00 57 L 13 142/59 99 06/06/20 00:51 57 L 14 141/58 98 06/06/20 00:41 56 L 14 139/57 98 06/06/20 00:30 57 L 14 139/57 99 06/06/20 00:21 56 L 14 142/59 98 06/06/20 00:11 58 L 14 139/60 98 06/06/20 00:01 58 L 16 139/60 99 06/06/20 00:00 57 L 57 L 14 96 06/05/20 23:51 58 L 18 142/59 99 06/05/20 23:41 66 12 139/58 99 06/05/20 23:31 58 L 11 L 139/58 98 06/05/20 23:21 59 L 11 L 140/59 98 06/05/20 23:11 61 14 151/55 99 06/05/20 23:01 61 11 L 151/55 98 06/05/20 22:56 99.1 F 06/05/20 22:51 63 12 153/58 100 06/05/20 22:41 62 10 L 152/63 100 06/05/20 22:30 62 15 152/63 99 06/05/20 22:21 60 11 L 147/61 98 06/05/20 22:16 62 161/68 06/05/20 22:15 62 161/68 06/05/20 22:14 62 161/68 06/05/20 22:11 61 14 161/68 98 06/05/20 22:00 65 10 L 161/68 100 06/05/20 21:51 64 9 L 147/61 99 06/05/20 21:41 61 11 L 148/65 99 06/05/20 21:30 63 16 148/65 100 06/05/20 21:21 60 14 133/58 99 06/05/20 21:11 60 13 155/64 99 06/05/20 21:01 63 18 155/64 100 06/05/20 21:00 61 155/64 100 06/05/20 20:51 68 12 181/53 100 06/05/20 20:41 77 13 172/68 100 06/05/20 20:31 67 14 172/68 100 06/05/20 20:21 71 12 180/78 100 06/05/20 20:11 78 14 183/76 100 06/05/20 20:01 75 12 183/76 100 06/05/20 20:00 97.9 F 67 67 14 96 06/05/20 19:51 62 14 142/59 98 06/05/20 19:41 64 15 154/67 100 06/05/20 19:31 66 13 154/67 100 06/05/20 19:30 67 19 154/67 99 06/05/20 19:21 75 16 160/68 99 06/05/20 19:11 70 11 L 189/78 100 06/05/20 19:01 72 11 L 168/70 100 06/05/20 18:51 79 17 189/78 99 06/05/20 18:41 91 H 17 176/77 99 06/05/20 18:31 80 13 213/80 100 06/05/20 18:21 73 14 153/67 99 06/05/20 18:11 63 17 166/65 99 06/05/20 18:01 63 10 L 166/65 99 06/05/20 17:51 63 9 L 163/67 99 06/05/20 17:41 63 9 L 161/62 99 06/05/20 17:31 62 13 161/62 99 06/05/20 17:21 63 10 L 171/71 99 06/05/20 17:11 62 10 L 153/63 99 06/05/20 17:01 62 9 L 155/61 99 06/05/20 16:51 62 9 L 153/63 99 06/05/20 16:41 65 9 L 160/61 99 06/05/20 16:31 65 9 L 159/59 99 06/05/20 16:21 66 9 L 160/61 99 06/05/20 16:11 69 10 L 186/75 99 06/05/20 16:01 77 14 174/110 96 06/05/20 16:00 68 77 14 96 06/05/20 15:51 80 15 179/84 97 06/05/20 15:48 98.1 F 06/05/20 15:42 67 18 166/73 98 06/05/20 15:41 85 18 196/79 99 06/05/20 15:31 81 17 196/79 100 06/05/20 15:21 66 12 164/64 99 06/05/20 15:11 65 11 L 145/64 98 06/05/20 15:00 67 11 L 166/73 99 06/05/20 14:50 64 11 L 145/64 98 06/05/20 14:41 63 10 L 155/65 98 06/05/20 14:31 63 10 L 146/62 98 06/05/20 14:21 63 10 L 150/60 98 06/05/20 14:16 63 155/65 06/05/20 14:15 63 155/65 06/05/20 14:11 62 10 L 155/65 98 06/05/20 14:01 63 9 L 155/65 100 06/05/20 13:51 68 11 L 154/86 100 06/05/20 13:50 67 12 154/86 98 06/05/20 13:41 63 15 144/66 99 06/05/20 13:31 68 10 L 144/66 99 06/05/20 13:21 72 13 149/64 99 06/05/20 13:11 69 12 151/67 98 06/05/20 13:01 69 10 L 154/67 98 06/05/20 12:50 79 16 129/53 99 06/05/20 12:41 75 12 176/78 99 06/05/20 12:31 71 13 176/78 100 06/05/20 12:21 76 14 198/72 99 06/05/20 12:11 79 16 180/83 98 06/05/20 12:01 71 14 180/83 99 06/05/20 12:00 98.4 F 74 71 14 99 06/05/20 11:53 70 188/79 06/05/20 11:52 75 198/83 100 06/05/20 11:51 68 15 188/79 100 06/05/20 11:41 72 12 198/83 100 06/05/20 11:31 75 13 198/83 100 06/05/20 11:21 75 11 L 188/74 100 06/05/20 11:11 73 11 L 173/69 100 06/05/20 11:01 68 10 L 173/69 99 06/05/20 10:51 68 10 L 171/87 100 06/05/20 10:41 70 10 L 177/70 100 06/05/20 10:31 71 9 L 177/70 99 06/05/20 10:21 75 10 L 155/64 100 06/05/20 10:11 66 10 L 148/49 100 06/05/20 10:01 56 L 10 L 148/49 100 06/05/20 09:51 55 L 14 140/56 100 - Physical Examination General: Other (intubated on the vent) HEENT: Positive: PERRL, Normocephaly, Mucus Membranes Moist Neck: Positive: neck supple. Negative: JVD/HJR Cardiac: Positive: Reg Rate and Rhythm, S1/S2 Lungs: Positive: clear to auscultation Neuro: Positive: Other (Intubated, on the vent) Abdomen: Positive: Soft Skin: Positive: Clear Extremities: Absent: edema - Labs and Meds Cardiac Enzymes 06/06/20 Range/Units 05:38 AST 15 (5-40) units/L CBC 06/06/20 Range/Units 05:38 WBC 9.4 (4.5-11.0) K/mm3 RBC 2.97 L (3.65-5.03) M/mm3 Hgb 8.7 L (10.1-14.3) gm/dl Hct 26.8 L (30.3-42.9) % Plt Count 182 (140-440) K/mm3 Lymph # Health Care Specialist [place] # Health Care Specialist Eos # Health Care Specialist Baso # Health Care Specialist Comprehensive Metabolic Panel 06/06/20 Range/Units 05:38 Sodium 134 L (137-145) mmol/L Potassium 5.2 H (3.6-5.0) mmol/L Chloride 98.6 (98-107) mmol/L Carbon Dioxide 18 L (22-30) mmol/L BUN 97 H (7-17) mg/dL Creatinine 2.5 H (0.6-1.2) mg/dL Glucose 193 H (65-100) mg/dL Calcium 7.5 L (8.4-10.2) mg/dL AST 15 (5-40) units/L ALT 12 (7-56) units/L Alkaline Phosphatase 66 (35-129) units/L Total Protein 4.1 L (6.3-8.2) g/dL Albumin 1.9 L (3.9-5) g/dL - Allied health notes Allied health notes reviewed: nursing
[2020-06-06] MEDS ORDERED: SODIUM CHLORIDE 0.9% 250ML 250 ML IV ONE (10:00)
[2020-06-06] MEDS: amLODIPine 10 MG TAB PO SCH (10:49)
[2020-06-06] MEDS: DEXAMETHASONE 4 MG TAB PO SCH (10:50)
[2020-06-06] MEDS: QUEtiapine 200 MG TAB PO SCH ×2 (10:50→22:55)
[2020-06-06] MEDS: LANSOPRAZOLE 30 MG SOLUTAB FEEDTUBE SCH ×2 (10:50→22:55)
[2020-06-06] MEDS: ALBUMIN HUMAN 25% (12.5 GM/50 ML) INJ IV SCH ×2 (10:50→22:55)
[2020-06-06] MEDS: SODIUM BICARBONATE 650 MG TAB PO SCH ×2 (10:50→22:55)
[2020-06-06] MEDS: levETIRAcetam 500 MG TAB PO SCH ×2 (10:50→22:55)
[2020-06-06] MEDS: carvediloL 12.5 MG TAB PO SCH ×2 (10:51→22:55)
[2020-06-06] MEDS: SENNOSIDES ORAL LIQD 8.8 MG/5 ML ORAL LIQD FEEDTUBE SCH ×2 (10:52→22:55)
--- NOTE | 2020-06-06 13:38 | Progress Note ---
Assessment and Plan Assessment and plan: 64 YO Female with a medical history of HTN, Diastolic CHF, Pulmonary HTN, DM, Obesity Hypoventilation Syndrome presents to ED for evaluation of shortness of breath. Patients history taken from EMS staff, ED staff. As per staff, the EMS was notified for difficulty breathing. Upon arrival to the patient's home the patient was found to be in distress and was subsequently transported to [facility] for further evaluation and care. In route to [facility] the patient developed cardiac arrest and was treated in accordance with ACLS protocol with return of ROSC Patient was seen and evaluated in the emergency department and was found to have acute hypoxemic respiratory failure status post cardiac arrest. Patient was intubated and placed on ventilatory support. Patient admitted to ICU due to increased risk of decompensation. Critical care team consulted in ED. She was found to have COVID-19 iinfection and was started on steroids and remdesivir. ID was consulted. Cardiology was consulted for her systolic heart failure and cardiac arrest. 06/01. Patient remains intubated and on ventilatory support today. Patient has multiple organ system failure and has poor prognosis. Patient did not experience significant medical decompensation overnight but no improvement with current therapy. 06/02. Remains intubated. her BP is elevated. Started on nicardipine drip. Cardiology following. 06/03-06/04. BP is better. Hb stable. Completed remdesivir. ID , Cardiology and Critical care team on board 06/05. Bump in creatinine. I/O reviewed. Nephrology consulted. 06/06. Has slight improvement in renal function. Nephrology on board. On SBT today. Vitals stable. Patient Problems (1) Acute hypoxemic respiratory failure Current Visit: Yes Status: Acute Plan to address problem: From COVID-19 viral infection Patient intubated, sedated and on ventilatory support. Critical care team on board On SBT as per critical care team The high probability of a clinically significant, sudden or life threatening deterioration of the [pulmonary, renal, cardiac, neuro] system(s) required my full and direct attention, intervention and personal management. The aggregate critical care time was [90] minutes. This time is in addition to time spent performing reported procedures but includes the following: [x] Data Review and interpretation [x] Patient assessment and monitoring of vital signs [x] Documentation [x] Medication orders and management (2) Cardiac arrest Current Visit: Yes Status: Acute Plan to address problem: Cardiology team on board Conservative management as per cardiology (3) Acute renal failure Current Visit: Yes Status: Acute Plan to address problem: Slight improvement in renal function today - Cr 2.8-->2.5 Avoid ACEI and other nephrotoxic medications Nephrology following (4) Coronavirus infection Current Visit: Yes Status: Acute Plan to address problem: Completed remdesivir on 06/02 Continue dexamethasone - Last dose 06/07 ID recs appreciated. Maintained on ventilator (5) CHF (congestive heart failure) Current Visit: Yes Status: Acute Qualifiers: Heart failure type: systolic Heart failure chronicity: acute Qualified Code(s): I50.21 - Acute systolic (congestive) heart failure Plan to address problem: Cardiology following. (6) Coffee ground emesis -Stress ulcers Possible stress ulcers On PPI H/H remains stable (7) Hypertension Continue amlodipine, coreg, clonidine and hydralazine Monitor BP (8) DVT prophylaxis Current Visit: Yes Status: Acute Plan to address problem: SCD to bilateral lower extremities while in bed Heparin (9) Advance care planning Current Visit: Yes Status: Acute Plan to address problem: Disease education conducted, prognosis discussed, +30 minutes. Patient is full code. History Interval history: See assessment and plan Hospitalist Physical - Constitutional Vitals: Temp Pulse Resp BP Pulse Ox 98.4 F 59 L 14 139/54 99 06/06/20 12:00 06/06/20 13:23 06/06/20 12:51 06/06/20 13:23 06/06/20 12:51 General appearance: Present: no acute distress, obese, other (intubated on the vent) - EENT Eyes: Present: PERRL - Neck Neck: Present: supple - Respiratory Respiratory: bilateral: diminished - Cardiovascular Rhythm: regular Heart Sounds: Present: S1 & S2 - Extremities Extremities: no ischemia - Abdominal General gastrointestinal: soft, non-tender, non-distended, normal bowel sounds - Neurologic Neurologic: other (intubated) Results - Labs CBC & Chem 7: 06/06/20 05:38 06/06/20 05:38 Labs: Laboratory Last Values WBC 9.4 K/mm3 (4.5-11.0) 06/06/20 05:38 RBC 2.97 M/mm3 (3.65-5.03) L 06/06/20 05:38 Hgb 8.7 gm/dl (10.1-14.3) L 06/06/20 05:38 Hct 26.8 % (30.3-42.9) L 06/06/20 05:38 MCV 90 fl (79-97) 06/06/20 05:38 MCH 29 pg (28-32) 06/06/20 05:38 MCHC 33 % (30-34) 06/06/20 05:38 RDW 16.8 % (13.2-15.2) H 06/06/20 05:38 Plt Count 182 K/mm3 (140-440) 06/06/20 05:38 Lymph % (Auto) House Worker 06/06/20 05:38 [place] % (Auto) House Worker 06/06/20 05:38 Eos % (Auto) House Worker 06/06/20 05:38 Baso % (Auto) House Worker 06/06/20 05:38 Lymph # House Worker 06/06/20 05:38 [place] # House Worker 06/06/20 05:38 Eos # House Worker 06/06/20 05:38 Baso # House Worker 06/06/20 05:38 Seg Neutrophils % House Worker 06/06/20 05:38 Seg Neutrophils # House Worker 06/06/20 05:38 PT 14.2 Sec. (12.2-14.9) 05/29/20 15:10 INR 1.08 (0.87-1.13) 05/29/20 15:10 APTT 27.2 Sec. (24.2-36.6) 05/29/20 15:10 D-Dimer 414.52 ng/mlDDU (0-234) H 06/04/20 04:19 Heparin Anti-Xa Level 0.49 U.I./ml (0.3-0.7) 06/05/20 22:39 ABG pH 7.286 pH Units (7.350-7.450) L 06/05/20 05:00 ABG pCO2 42.8 mm Hg 06/05/20 05:00 ABG pO2 96.2 mm Hg (80.0-90.0) H 06/05/20 05:00 ABG HCO3 20.0 mmol/L (20.0-26.0) 06/05/20 05:00 ABG O2 Saturation 97.0 % (95.0-99.0) 06/05/20 05:00 ABG O2 Content 11.8 (0.0-44) 06/05/20 05:00 ABG Base Excess -6.3 mmol/L (-2.0-3.0) L 06/05/20 05:00 ABG Hemoglobin 8.8 gm/dl (12.0-16.0) L 06/05/20 05:00 ABG Carboxyhemoglobin 1.6 % (0.0-5.0) 06/05/20 05:00 ABG Methemoglobin 0.6 % (0.0-1.5) 06/05/20 05:00 VBG pH 7.152 (7.320-7.420) L* 05/28/20 13:47 Oxyhemoglobin 94.8 % (95.0-99.0) L 06/05/20 05:00 FiO2 25 % 06/05/20 05:00 Sodium 134 mmol/L (137-145) L 06/06/20 05:38 Potassium 5.2 mmol/L (3.6-5.0) H 06/06/20 05:38 Chloride 98.6 mmol/L (98-107) 06/06/20 05:38 Carbon Dioxide 18 mmol/L (22-30) L 06/06/20 05:38 Anion Gap 23 mmol/L 06/06/20 05:38 BUN 97 mg/dL (7-17) H 06/06/20 05:38 Creatinine 2.5 mg/dL (0.6-1.2) H 06/06/20 05:38 Estimated GFR 20 ml/min 06/06/20 05:38 BUN/Creatinine Ratio 39 % 06/06/20 05:38 Glucose 193 mg/dL (65-100) H 06/06/20 05:38 POC Glucose 186 (70-105) H 06/06/20 05:33 Lactic Acid 1.90 mmol/L (0.7-2.0) 05/28/20 14:46 Calcium 7.5 mg/dL (8.4-10.2) L 06/06/20 05:38 Ferritin 100.7 ng/mL (10.0-200.0) 06/04/20 04:19 Total Bilirubin 0.20 mg/dL (0.1-1.2) 06/06/20 05:38 AST 15 units/L (5-40) 06/06/20 05:38 ALT 12 units/L (7-56) 06/06/20 05:38 Alkaline Phosphatase 66 units/L (35-129) 06/06/20 05:38 Lactate Dehydrogenase 271 units/L (91-180) H 06/04/20 04:19 Total Creatine Kinase 301 units/L (30-135) H 05/28/20 13:47 CK-MB (CK-2) 4.3 ng/mL (0.0-4.0) H 05/28/20 13:47 CK-MB (CK-2) Rel Index 1.4 (0-4) 05/28/20 13:47 C-Reactive Protein 2.20 mg/dL (0.00-1.30) H 06/04/20 04:19 Total Protein 4.1 g/dL (6.3-8.2) L 06/06/20 05:38 Albumin 1.9 g/dL (3.9-5) L 06/06/20 05:38 Albumin/Globulin Ratio 0.9 % 06/06/20 05:38 Procalcitonin 0.17 ng/mL (<0.15) 06/04/20 04:19 Urine Color Yellow (Yellow) 06/06/20 04:00 Urine Turbidity Cloudy (Clear) 06/06/20 04:00 Urine pH 5.0 (5.0-7.0) 06/06/20 04:00 Ur Specific [place] 1.012 (1.003-1.030) 06/06/20 04:00 Urine Protein 100 mg/dl mg/dL (Negative) 06/06/20 04:00 Urine Glucose (UA) 50 mg/dL (Negative) 06/06/20 04:00 Urine Ketones Neg mg/dL (Negative) 06/06/20 04:00 Urine Blood Sm (Negative) 06/06/20 04:00 Urine Nitrite Neg (Negative) 06/06/20 04:00 Urine Bilirubin Neg (Negative) 06/06/20 04:00 Urine Urobilinogen < 2.0 mg/dL (<2.0) 06/06/20 04:00 Ur Leukocyte Esterase Neg (Negative) 06/06/20 04:00 Urine WBC (Auto) 15.0 /HPF (0.0-6.0) H 06/06/20 04:00 Urine RBC (Auto) 23.0 /HPF (0.0-6.0) 06/06/20 04:00 U Epithel Cells (Auto) 8.0 /HPF (0-13.0) 06/06/20 04:00 Urine Bacteria (Auto) 2+ /HPF (Negative) 06/06/20 04:00 Amorphous Crystals 1+ 06/06/20 04:00 Hyaline Casts 16 /LPF 06/06/20 04:00 Urine Mucus 2+ /HPF 06/06/20 04:00 Urine Yeast (Budding) 2+ /HPF 06/03/20 Unknown Urine Creatinine 82.2 mg/dL (0.1-20.0) H 06/06/20 04:00 Urine Sodium 20 mmol/L 06/06/20 04:00 Urine Total Protein 196 mg/dL (5-11.8) H 06/06/20 04:00 Coronavirus (PCR) Positive (Negative) A 05/28/20 Unknown - Diagnostic Impressions Diagnostic Impressions: Echocardiogram Limited Views 05/29/20 13:52 Transthoracic Echocardiogram Indication: Pulm Embolus BP: 169/76 HR: 85 Conclusions *Limited study for RV size post cardiopulmonar arrest. *RV is only slightly dilated, no significant difference from prior echo 05/13/2020. *Global left ventricular systolic function is at the lower limits of normal. *The estimated ejection fraction is 45-50%. *Mild to moderate concentric left ventricular hypertrophy is observed. *The left and right atria are both mild to moderately dilated. Findings Left Ventricle: The left ventricular chamber size is mildly dilated. Mild to moderate concentric left ventricular hypertrophy is observed. Global left ventricular systolic function is at the lower limits of normal. The estimated ejection fraction is 45-50%. Left Atrium: The left atrium is mild to moderately dilated. Right Ventricle: The right ventricle is slightly dilated. Right Atrium: The right atrium is mild to moderately dilated. Aortic Valve: The aortic valve leaflets are moderately thickened. Mitral Valve: There is mitral annular calcification. The mitral valve leaflets are moderately thickened. Tricuspid Valve: The tricuspid valve leaflets are mildly thickened. Pericardium: A trivial pericardial effusion is visualized. NDUM: 05/29/20 1808 Amended Report Transthoracic Echocardiogram Indication: Pulm Embolus BP: 169/76 HR: 85 Conclusions *Limited study for RV size post cardiopulmonary arrest. *RV is only slightly dilated, no significant difference from prior echo 05/13/2020. *Global left ventricular systolic function is at the lower limits of normal. *The estimated ejection fraction is 45-50%. *Mild to moderate concentric left ventricular hypertrophy is observed. *The left and right atria are both mild to moderately dilated. Findings Left Ventricle: The left ventricular chamber size is mildly dilated. Mild to moderate concentric left ventricular hypertrophy is observed. Global left ventricular systolic function is at the lower limits of normal. The estimated ejection fraction is 45-50%. Left Atrium: The left atrium is mild to moderately dilated. Right Ventricle: The right ventricle is slightly dilated. Right Atrium: The right atrium is mild to moderately dilated. Aortic Valve: The aortic valve leaflets are moderately thickened. Mitral Valve: There is mitral annular calcification. The mitral valve leaflets are moderately thickened. Tricuspid Valve: The tricuspid valve leaflets are mildly thickened. Pericardium: A trivial pericardial effusion is visualized. Helm/IV: Voiding Method Indwelling Catheter IV Catheter Type [Left INT / Saline Lock Antecubital] IV Catheter Type [Right Peripheral IV Forearm] IV Catheter Type [Left Leg] Intra-osseous Active Medications - Current Medications Current Medications: Generic Name Dose Route Start Last Admin Trade Name Freq PRN Reason Stop Dose Admin Albumin Human 12.5 gm 06/06/20 10:00 06/06/20 10:50 Alburx 25% (Albumin) IV 06/07/20 22:01 12.5 gm Q12HR NELSON Administration Amlodipine Besylate 10 mg 06/02/20 11:00 06/06/20 10:49 Amlodipine PO 10 mg DAILY NELSON Administration Lipase/Protease/Amylase 1 each 05/29/20 13:39 Pancremu Lawson 10,500 Unit FEEDTUBE PRN PRN For Clogged Feeding Tube Carvedilol 12.5 mg 06/03/20 10:00 06/06/20 10:51 Coreg PO Not Given BID NELSON Clonidine HCl 0.1 mg 06/04/20 06:00 06/06/20 13:23 Catapres PO 0.1 mg Q8HR NELSON Administration Clonidine HCl 0.2 mg 06/04/20 06:00 06/06/20 13:22 Catapres PO 0.2 mg Q8HR NELSON Administration Dexamethasone 6 mg 05/29/20 15:00 06/06/20 10:50 Decadron PO 06/07/20 10:01 6 mg DAILY NELSON Administration Fentanyl 50 mcg 05/29/20 14:21 Sublimaze IV Q10MIN PRN ANALGESIA Glycopyrrolate 1 mg 06/05/20 15:00 06/06/20 13:22 Robinul PO 1 mg TID NELSON Administration Hydralazine HCl 50 mg 06/03/20 09:00 06/06/20 13:22 Apresoline PO 50 mg Q8HR NELSON Administration Hydrophilic Ointment 1 applic 05/28/20 13:49 Vaseline Lip Therapy TP Q2HR PRN Dry Lips Heparin Sodium/Sodium Chloride 25,000 unit in 500 mls @ 30 mls/hr 05/29/20 15:00 06/05/20 22:32 Heparin/ 0.45% Nacl-25,000 Unit/500 Ml IV 1,250 units/hr TITR NELSON 25 mls/hr Administration Protocol 1,500 UNITS/HR Fentanyl Citrate 2,000 mcg in 100 mls @ 6.095 mls/hr 05/29/20 15:00 06/06/20 08:35 Fentanyl Drip Premix IV 0 mcg/kg/hr TITR NELSON 0 mls/hr Titration Protocol 1 MCG/KG/HR Nicardipine HCl 50 mg/ Sodium 250 mls @ 25 mls/hr 06/02/20 09:00 06/02/20 11:23 Chloride IV 0 mg/hr TITR NELSON 0 mls/hr Titration Protocol 5 MG/HR Insulin Human Lispro 0 unit 05/29/20 18:00 06/06/20 12:42 Humalog SUB-Q 4 unit Q6H NELSON Administration Protocol Labetalol HCl 20 mg 06/03/20 09:00 Labetalol IV Q4H PRN HYPERTENSION Lansoprazole 30 mg 06/05/20 22:00 06/06/20 10:50 Prevacid Solutab FEEDTUBE 30 mg BID NELSON Administration Levetiracetam 500 mg 05/29/20 22:00 06/06/20 10:50 Keppra PO 500 mg BID NELSON Administration Multi-Ingred Cream/Lotion/Oil/Oint 1 applic 05/28/20 13:49 Artificial Tears Ophth Oint OU Q4HR PRN Dry Eye(s) Ondansetron HCl 4 mg 06/02/20 09:00 Zofran IV Q8H PRN Nausea And Vomiting Quetiapine Fumarate 200 mg 06/03/20 10:00 06/06/20 10:50 Seroquel PO 200 mg BID NELSON Administration Scopolamine 1 each 06/05/20 14:00 06/05/20 14:15 Transderm-Scop TD 1 each Q3D NELSON Administration Senna 17.6 mg 06/03/20 10:00 06/06/20 10:52 Senokot FEEDTUBE 17.6 mg BID NELSON Administration Simple Syrup 15 ml 05/29/20 13:39 Simple Syrup FEEDTUBE PRN PRN Hypoglycemia Simple Syrup 30 ml 05/29/20 13:39 Simple Syrup FEEDTUBE PRN PRN Hypoglycemia Sodium Bicarbonate 325 mg 05/29/20 13:39 Sodium Bicarbonate FEEDTUBE PRN PRN For Clogged Feeding Tube Sodium Bicarbonate 650 mg 06/06/20 10:00 06/06/20 10:50 Sodium Bicarbonate PO 650 mg BID NELSON Administration Sodium Chloride 10 ml 05/28/20 22:00 06/06/20 10:51 Sodium Chloride Flush Syringe 10 Ml IV 10 ml BID NELSON Administration Sodium Chloride 10 ml 05/28/20 19:08 Sodium Chloride Flush Syringe 10 Ml IV PRN PRN LINE FLUSH Nutrition/Malnutrition Assess - Dietary Evaluation Nutrition/Malnutrition Findings: Nutrition Notes Start: 05/29/20 11:45 Freq: Status: Active Protocol: [facility]01[facility]20 09[facility]Rec: 06/01/20 10:02 CTBRITANY [email or web address]) Nutrition Notes Initial or Follow up Reassessment Current Diagnosis Heart Failure,Respiratory Failure Other Pertinent Diagnosis s/p Cardiac Arrest, Metabolic Encephalopathy, COVID-19 (+) Current Diet TF - Nepro at 40ml/hr Labs/Tests Reviewed Pertinent Medications Lasix Height 5 ft 6 in Weight 123 kg [place] Body Weight (kg) 59.09 BMI 43.7 Weight Status Morbidly Obese Subjective/Other Information Per RN, pt tolerating TF at goal rate. Pt remains on vent support. Burn Absent Trauma Absent #1 Nutrition Diagnosis Inadequate oral intake Diagnosis Progress(for reassessment Continues documentation) Is patient on ventilator? Yes Is Patient Ambulatory and/or Out of Bed No REE-([facility]-confined to bed) 4230.908 Additional Notes Pro needs up to 2.5g/kg IBW: up to 148g/day Fluid needs 1ml/kcal Nutrition Intervention Nutrition Support: Continue Nepro at 40ml/hr Flush with 175ml q4h Kcal 1,728 Protein (gm) 78 Fluid (mL) 698 Goal #1 TF tolerance Goal #2 TF to meet at least 75% energy and pro needs Follow-Up By: 06/08/20 Additional Comments F/U: stable TF, vent status, wt
[2020-06-06] MEDS: fentaNYL DRIP Premix 2,000 MCG/100 ML BAG IV SCH ×2 (15:13→21:58)
[2020-06-06] MEDS: HEPARIN/ 0.45% NACL DRIP 25,000 UNIT/500 ML BAG IV SCH (21:59)
[2020-06-07] MEDS: INSULIN LISPRO 100 UNIT/ML VIAL 3 mL SUB-Q SCH ×5 (00:50→23:56)
[2020-06-07] MEDS: fentaNYL DRIP Premix 2,000 MCG/100 ML BAG IV SCH (03:52)
[2020-06-07 04:31] LABS: Basophils % (Auto) 0.1 % (0.0-1.8); Eosinophils % (Auto) 0.1 % (0.0-4.3); Hemoglobin 8.4 gm/dl (10.1-14.3); Lymphocytes # (Auto) 0.6 K/mm3 (1.2-5.4); Lymphocytes % (Auto) 5.7 % (13.4-35.0); Mean Corpuscular HGB Conc 33 % (30-34); Mean Corpuscular Volume 86 fl (79-97); Monocytes # (Auto) 1.1 K/mm3 (0.0-0.8); Monocytes % (Auto) 10.5 % (0.0-7.3); Platelet Count 190 K/mm3 (140-440); Red Blood Count 2.91 M/mm3 (3.65-5.03); Red Cell Distribution Width 16.1 % (13.2-15.2)
[2020-06-07 04:50] LABS: Alanine Aminotransferase 11 units/L (7-56); BUN/Creatinine Ratio 40; Blood Urea Nitrogen 100 mg/dL (7-17); Calcium 7.6 mg/dL (8.4-10.2); Hemolysis Index 3
[2020-06-07 05:21] LABS: ABG Base Excess -4.8 mmol/L (-2.0-3.0); ABG HCO3 20.9 mmol/L (20.0-26.0); ABG Methemoglobin 0.6 % (0.0-1.5); ABG Oxygen Saturation 94.3 % (95.0-99.0); ABG PCO2 41.9 mm Hg; ABG PH 7.317 pH Units (7.350-7.450); ABG PO2 71.4 mm Hg (80.0-90.0)
[2020-06-07] MEDS: hydrALAZINE 25 MG TAB PO SCH ×3 (05:57→21:41)
[2020-06-07] MEDS: cloNIDine 0.1 MG TAB PO SCH ×3 (05:58→21:43)
[2020-06-07] MEDS: cloNIDine 0.2 MG TAB PO SCH ×3 (05:58→21:48)
[2020-06-07] MEDS: GLYCOPYRROLATE 1 MG TAB PO SCH ×3 (08:28→21:45)
--- NOTE | 2020-06-07 09:09 | Progress Note ---
Assessment and Plan Acute hypoxemic respiratory failure orally intubated on MVS Severe COVID infection Multifocal pneumonia Morbid obesity Acute toxic metabolic encephalopathy AVANI secondary to COVID/vasomotor nephropathy Bilateral pulmonary edema. Bilateral pleural effusions. History of congestive heart failure. Morbid obesity. History of pulmonary hypertension. History of hypertension. Diabetes. Obesity hypoventilation syndrome. Elevated serum inflammatory markers to include D-dimers and LDH levels. AVANI Metabolic acidosis. Oropharyngeal dysphagia. -Gentle IVF while monitoring respiratory status -SAT and SBT today as tolerated -CXR, ABG as clinically indicated Resume tube feedings and monitor residuals, - VAP bundle addressed -Aspiration precautions, HOB >40 - continue lung protective strategies-ARDS. net -Permissive hypercapnic is acceptable - continue bronchodilators with pulmonary hygiene per RT - wean per pulmonary driven protocols otherwise - continue to avoid benzodiazepines, reduce the possibility of delirium - prn analgesia per CPOT score - sedation prn for target RASS 0 to -1 - Continue to wean supplemental oxygen for target O2 sats > 92% - conservative fluid management measures as tolerated by hemodynamics and renal function - Bronchodilators with pulmonary hygiene per RT -Monitor off antibiotics - Accuchecks with glycemic control per SSI (While critically ill target blood glucose of 140-180 mg/dL; avoid hypoglycemia) - Maintenance of sleep-wake cycle, avoid delirium - Avoid nephrotoxins, closely monitor renal function, dose all medications for renal function - Aspiration precautions, HOB >40 - Stress ulcer prophylaxis -Famotidine - VTE prophylaxis on adjust based on D-dimer levels - Mobility protocol, off loading and skin assessment for pressure ulcer prevention - Monitor hemodynamics closely - Supportive transfusions as indicated to keep HgB >7g/dL COVID SPECIFIC INTERVENTIONS -Airborne, contact isolation for COVID per facility protocols - s/p Remdesivir -IV steroids-Dexamethasone -Trend d-dimer,and other inflammatory markers per facility protocol -Convalescent plasma therapy per facility protocol -Continue all supportive care Discussed with the ICU team-RTRN, Life threatening condition- COVID 19 ARDS acute hypoxemic respiratory failure on [facility] [place] Mortality/Morbidity- High Complexity of medical decision making- High CONDITION: CRITICAL PROGNOSIS: GUARDED CODE STATUS: FULL CODE The high probability of a clinically significant, sudden or life-threatening deterioration of the [respiratory & neurology, renal ] system(s) required my full and direct attention, intervention and personal management. The aggregate critical care time was [33] minutes without overlap. Time includes spent on; [x] Data Review and interpretation [x] Patient assessment and monitoring of vital signs [x] Documentation [x] Medication orders and management Subjective Date of service: 06/07/20 Principal diagnosis: Ac hypoxemic resp failure; COVID-19; pneumonia; CHF; Pulm HTN; OHS; DM II Interval history: Patient is seen today for: Ac hypoxemic resp failure; Coronavirus-19 infection; pneumonia; Pulmonary edema; Bilateral pleural effusions; CHF; Morbid obesity; pulmonary hypertension; OHS; DM II Seen and examined at bedside; 24hour events reviewed; nursing and respiratory care staff consulted; no adverse overnight events reported to me; resting peacefully in bed; remains on MVS; no high grade fevers,vomited once overnight, tube feedings were held. On Fentanyl at 1mcg/kg , continuous infusion Off all antibiotics Objective Vital Signs - 12hr 06/06/20 06/06/20 06/06/20 21:11 21:21 21:30 Temperature Pulse Rate 57 L 58 L 59 L Pulse Rate [ From Monitor] Respiratory 14 14 14 Rate Blood Pressure 150/52 148/52 151/54 O2 Sat by Pulse 99 98 99 Oximetry 06/06/20 06/06/20 06/06/20 21:41 21:51 22:01 Temperature Pulse Rate 63 63 61 Pulse Rate [ From Monitor] Respiratory 14 14 14 Rate Blood Pressure 151/54 153/52 151/54 O2 Sat by Pulse 98 98 98 Oximetry 06/06/20 06/06/20 06/06/20 22:11 22:21 22:31 Temperature Pulse Rate 63 58 L 58 L Pulse Rate [ From Monitor] Respiratory 14 14 14 Rate Blood Pressure 151/54 149/55 150/55 O2 Sat by Pulse 98 99 99 Oximetry 06/06/20 06/06/20 06/06/20 22:33 22:41 22:51 Temperature Pulse Rate 58 L 57 L 56 L Pulse Rate [ From Monitor] Respiratory 14 14 14 Rate Blood Pressure 150/55 150/55 152/55 O2 Sat by Pulse 99 99 99 Oximetry 06/06/20 06/06/20 06/06/20 22:55 23:01 23:11 Temperature Pulse Rate 56 L 55 L 56 L Pulse Rate [ From Monitor] Respiratory 14 14 Rate Blood Pressure 150/54 150/54 150/54 O2 Sat by Pulse 99 98 Oximetry 06/06/20 06/06/20 06/06/20 23:21 23:31 23:32 Temperature 98.8 F Pulse Rate 56 L 55 L Pulse Rate [ From Monitor] Respiratory 14 14 Rate Blood Pressure 149/55 150/54 O2 Sat by Pulse 99 99 Oximetry 06/06/20 06/06/20 06/07/20 23:41 23:51 00:00 Temperature Pulse Rate 55 L 55 L 55 L Pulse Rate [ 54 L From Monitor] Respiratory 14 13 14 Rate Blood Pressure 150/54 151/55 151/55 O2 Sat by Pulse 98 98 98 Oximetry 06/07/20 06/07/20 06/07/20 00:07 00:11 00:21 Temperature Pulse Rate 56 L 55 L 55 L Pulse Rate [ From Monitor] Respiratory 14 14 Rate Blood Pressure 136/55 136/55 148/53 O2 Sat by Pulse 98 98 98 Oximetry 06/07/20 06/07/20 06/07/20 00:30 00:41 00:51 Temperature Pulse Rate 55 L 54 L 55 L Pulse Rate [ From Monitor] Respiratory 14 14 14 Rate Blood Pressure 149/57 149/57 147/54 O2 Sat by Pulse 98 98 98 Oximetry 06/07/20 06/07/20 06/07/20 01:00 01:11 01:21 Temperature Pulse Rate 55 L 55 L 54 L Pulse Rate [ From Monitor] Respiratory 14 14 14 Rate Blood Pressure 146/55 146/55 146/55 O2 Sat by Pulse 98 98 98 Oximetry 06/07/20 06/07/20 06/07/20 01:31 01:41 01:51 Temperature Pulse Rate 54 L 55 L 54 L Pulse Rate [ From Monitor] Respiratory 14 14 14 Rate Blood Pressure 147/56 147/56 146/55 O2 Sat by Pulse 98 98 98 Oximetry 06/07/20 06/07/20 06/07/20 02:01 02:11 02:21 Temperature Pulse Rate 54 L 54 L 55 L Pulse Rate [ From Monitor] Respiratory 14 14 14 Rate Blood Pressure 150/54 146/55 147/55 O2 Sat by Pulse 98 98 98 Oximetry 06/07/20 06/07/20 06/07/20 02:30 02:41 02:51 Temperature Pulse Rate 55 L 54 L 54 L Pulse Rate [ From Monitor] Respiratory 14 14 14 Rate Blood Pressure 150/56 146/55 148/54 O2 Sat by Pulse 98 97 96 Oximetry 06/07/20 06/07/20 06/07/20 03:00 03:11 03:21 Temperature Pulse Rate 55 L 55 L 54 L Pulse Rate [ From Monitor] Respiratory 14 14 14 Rate Blood Pressure 147/55 147/55 146/55 O2 Sat by Pulse 97 96 96 Oximetry 06/07/20 06/07/20 06/07/20 03:25 03:30 03:41 Temperature 98.5 F Pulse Rate 55 L 55 L Pulse Rate [ From Monitor] Respiratory 14 14 Rate Blood Pressure 147/56 147/56 O2 Sat by Pulse 96 96 Oximetry 06/07/20 06/07/20 06/07/20 03:51 04:00 04:11 Temperature Pulse Rate 54 L 55 L 55 L Pulse Rate [ 55 L From Monitor] Respiratory 14 14 14 Rate Blood Pressure 148/52 145/52 145/52 O2 Sat by Pulse 96 96 96 Oximetry 06/07/20 06/07/20 06/07/20 04:21 04:30 04:41 Temperature Pulse Rate 55 L 54 L 54 L Pulse Rate [ From Monitor] Respiratory 14 14 14 Rate Blood Pressure 144/54 144/55 148/52 O2 Sat by Pulse 97 97 97 Oximetry 06/07/20 06/07/20 06/07/20 04:42 04:51 05:00 Temperature Pulse Rate 54 L 68 63 Pulse Rate [ From Monitor] Respiratory 15 14 Rate Blood Pressure 144/55 147/56 162/64 O2 Sat by Pulse 97 96 97 Oximetry 06/07/20 06/07/20 06/07/20 05:11 05:21 05:31 Temperature Pulse Rate 60 58 L 57 L Pulse Rate [ From Monitor] Respiratory 14 14 14 Rate Blood Pressure 162/64 153/54 148/51 O2 Sat by Pulse 97 98 98 Oximetry 06/07/20 06/07/20 06/07/20 05:41 05:51 05:57 Temperature Pulse Rate 56 L 56 L 56 L Pulse Rate [ From Monitor] Respiratory 14 14 Rate Blood Pressure 148/51 145/51 145/51 O2 Sat by Pulse 99 98 Oximetry 06/07/20 06/07/20 06/07/20 05:58 06:01 06:11 Temperature Pulse Rate 56 L 56 L 56 L Pulse Rate [ From Monitor] Respiratory 14 14 Rate Blood Pressure 145/56 144/50 145/51 O2 Sat by Pulse 98 98 Oximetry 06/07/20 06/07/20 06/07/20 06:21 06:30 06:40 Temperature Pulse Rate 73 92 H 80 Pulse Rate [ From Monitor] Respiratory 13 8 L 10 L Rate Blood Pressure 143/50 143/50 207/89 O2 Sat by Pulse 99 95 98 Oximetry 06/07/20 06/07/20 06/07/20 06:51 07:00 07:11 Temperature Pulse Rate 76 70 71 Pulse Rate [ From Monitor] Respiratory 7 L 9 L 8 L Rate Blood Pressure 147/78 152/68 147/78 O2 Sat by Pulse 97 97 98 Oximetry 06/07/20 06/07/20 06/07/20 07:21 07:30 07:41 Temperature Pulse Rate 72 69 67 Pulse Rate [ From Monitor] Respiratory 7 L 7 L 7 L Rate Blood Pressure 134/56 137/63 137/63 O2 Sat by Pulse 97 96 98 Oximetry 06/07/20 06/07/20 06/07/20 07:51 08:00 08:11 Temperature Pulse Rate 67 63 68 Pulse Rate [ 82 From Monitor] Respiratory 7 L 12 8 L Rate Blood Pressure 128/59 130/58 130/58 O2 Sat by Pulse 98 98 98 Oximetry 06/07/20 06/07/20 06/07/20 08:19 08:21 08:31 Temperature Pulse Rate 66 66 80 Pulse Rate [ From Monitor] Respiratory 14 12 Rate Blood Pressure 134/58 134/58 171/84 O2 Sat by Pulse 96 96 99 Oximetry Constitutional: no acute distress, other (elderly looking obese female riding set rate on MVS at rest) Eyes: non-icteric ENT: oropharynx moist, other (ETT 23 cm AYAN) Neck: supple, no lymphadenopathy, no JVD, other (ETT 23 cm AYAN) Effort: mildly labored Ascultation: Bilateral: clear, diminished breath sounds, rhonchi Percussion: Bilateral: not dull Cardiovascular: regular rate and rhythm Gastrointestinal: normoactive bowel sounds, soft, non-tender, non-distended Integumentary: normal Extremities: no cyanosis, no edema, pink and warm, pulses normal, no ischemia or petechiae Neurologic: non-focal exam (grossly), pupils equal and round, unable to assess Psychiatric: other (unable to assess re: AMS) CBC and BMP: 06/12/20 02:46 06/12/20 02:46 ABG, PT/INR, D-dimer: ABG ABG pH 7.317 pH Units (7.350-7.450) L 06/07/20 04:54 ABG pCO2 41.9 mm Hg 06/07/20 04:54 ABG pO2 71.4 mm Hg (80.0-90.0) L 06/07/20 04:54 ABG O2 Saturation 94.3 % (95.0-99.0) L 06/07/20 04:54 PT/INR, D-dimer PT 14.2 Sec. (12.2-14.9) 05/29/20 15:10 INR 1.08 (0.87-1.13) 05/29/20 15:10 D-Dimer 414.52 ng/mlDDU (0-234) H 06/04/20 04:19 Abnormal lab findings: Abnormal Labs 05/28/20 05/28/20 05/28/20 13:29 13:47 13:47 WBC RBC Hgb Hct RDW 15.3 H Lymph % (Auto) Coal % (Auto) Lymph # Coal # Seg Neutrophils % Seg Neutrophils # D-Dimer Heparin Anti-Xa Level ABG pH ABG pO2 ABG HCO3 ABG O2 Saturation ABG Base Excess ABG Hemoglobin VBG pH Oxyhemoglobin Sodium Potassium 6.6 H* Chloride 109.2 H Carbon Dioxide 17 L BUN 29 H Creatinine 1.3 H Glucose 265 H POC Glucose 248 H Lactic Acid Calcium 8.1 L AST 63 H Lactate Dehydrogenase Total Creatine Kinase 301 H CK-MB (CK-2) 4.3 H C-Reactive Protein Total Protein 5.4 L Albumin 2.6 L Urine WBC (Auto) Urine Creatinine Urine Total Protein Coronavirus (PCR) 05/28/20 05/28/20 05/28/20 13:47 13:47 14:46 WBC RBC Hgb Hct RDW Lymph % (Auto) Coal % (Auto) Lymph # Coal # Seg Neutrophils % Seg Neutrophils # D-Dimer Heparin Anti-Xa Level ABG pH ABG pO2 ABG HCO3 ABG O2 Saturation ABG Base Excess ABG Hemoglobin VBG pH 7.152 L* Oxyhemoglobin Sodium Potassium 7.2 H* Chloride Carbon Dioxide BUN Creatinine Glucose POC Glucose Lactic Acid 3.40 H* Calcium AST Lactate Dehydrogenase Total Creatine Kinase CK-MB (CK-2) C-Reactive Protein Total Protein Albumin Urine WBC (Auto) Urine Creatinine Urine Total Protein Coronavirus (PCR) 05/28/20 05/28/20 05/28/20 15:33 15:33 15:51 WBC RBC Hgb Hct RDW Lymph % (Auto) Coal % (Auto) Lymph # Coal # Seg Neutrophils % Seg Neutrophils # D-Dimer 8780.43 H Heparin Anti-Xa Level ABG pH 7.284 L ABG pO2 273.0 H ABG HCO3 ABG O2 Saturation 99.4 H ABG Base Excess -6.1 L ABG Hemoglobin 17.2 H VBG pH Oxyhemoglobin Sodium Potassium Chloride Carbon Dioxide BUN Creatinine Glucose 152 H POC Glucose Lactic Acid Calcium AST Lactate Dehydrogenase 365 H Total Creatine Kinase CK-MB (CK-2) C-Reactive Protein Total Protein Albumin Urine WBC (Auto) Urine Creatinine Urine Total Protein Coronavirus (PCR) 05/28/20 05/28/20 05/28/20 16:30 20:41 23:20 WBC RBC Hgb Hct RDW Lymph % (Auto) Coal % (Auto) Lymph # Coal # Seg Neutrophils % Seg Neutrophils # D-Dimer Heparin Anti-Xa Level ABG pH ABG pO2 ABG HCO3 ABG O2 Saturation ABG Base Excess ABG Hemoglobin VBG pH Oxyhemoglobin Sodium Potassium Chloride Carbon Dioxide BUN Creatinine Glucose POC Glucose 225 H 224 H Lactic Acid Calcium AST Lactate Dehydrogenase Total Creatine Kinase CK-MB (CK-2) C-Reactive Protein Total Protein Albumin Urine WBC (Auto) 17.0 H Urine Creatinine Urine Total Protein Coronavirus (PCR) 05/28/20 05/29/20 05/29/20 Unknown 04:35 04:43 WBC RBC 3.48 L Hgb 9.8 L Hct 29.4 L RDW 16.0 H Lymph % (Auto) 7.4 L Coal % (Auto) Lymph # 0.7 L Coal # Seg Neutrophils % 89.1 H Seg Neutrophils # 8.1 H D-Dimer Heparin Anti-Xa Level ABG pH ABG pO2 ABG HCO3 19.3 L ABG O2 Saturation ABG Base Excess -4.5 L ABG Hemoglobin 9.7 L VBG pH Oxyhemoglobin Sodium Potassium Chloride Carbon Dioxide BUN Creatinine Glucose POC Glucose Lactic Acid Calcium AST Lactate Dehydrogenase Total Creatine Kinase CK-MB (CK-2) C-Reactive Protein Total Protein Albumin Urine WBC (Auto) Urine Creatinine Urine Total Protein Coronavirus (PCR) Positive A 05/29/20 05/29/20 05/29/20 04:43 15:10 17:17 WBC RBC Hgb 9.3 L Hct 28.7 L RDW Lymph % (Auto) Coal % (Auto) Lymph # Coal # Seg Neutrophils % Seg Neutrophils # D-Dimer Heparin Anti-Xa Level ABG pH ABG pO2 ABG HCO3 ABG O2 Saturation ABG Base Excess ABG Hemoglobin VBG pH Oxyhemoglobin Sodium Potassium Chloride 110.2 H Carbon Dioxide 18 L BUN 32 H Creatinine 1.4 H Glucose 180 H POC Glucose 147 H Lactic Acid Calcium AST Lactate Dehydrogenase Total Creatine Kinase CK-MB (CK-2) C-Reactive Protein Total Protein Albumin Urine WBC (Auto) Urine Creatinine Urine Total Protein Coronavirus (PCR) 05/30/20 05/30/20 05/30/20 00:08 00:12 04:15 WBC RBC Hgb Hct RDW Lymph % (Auto) Coal % (Auto) Lymph # Coal # Seg Neutrophils % Seg Neutrophils # D-Dimer Heparin Anti-Xa Level 0.71 H ABG pH 7.460 H ABG pO2 106.0 H ABG HCO3 18.9 L ABG O2 Saturation ABG Base Excess -4.4 L ABG Hemoglobin 6.8 L VBG pH Oxyhemoglobin Sodium Potassium Chloride Carbon Dioxide BUN Creatinine Glucose POC Glucose 195 H Lactic Acid Calcium AST Lactate Dehydrogenase Total Creatine Kinase CK-MB (CK-2) C-Reactive Protein Total Protein Albumin Urine WBC (Auto) Urine Creatinine Urine Total Protein Coronavirus (PCR) 05/30/20 05/30/20 05/30/20 06:07 08:37 12:33 WBC RBC Hgb Hct RDW Lymph % (Auto) Coal % (Auto) Lymph # Coal # Seg Neutrophils % Seg Neutrophils # D-Dimer Heparin Anti-Xa Level 0.85 H ABG pH ABG pO2 ABG HCO3 ABG O2 Saturation ABG Base Excess ABG Hemoglobin VBG pH Oxyhemoglobin Sodium Potassium Chloride Carbon Dioxide BUN Creatinine Glucose POC Glucose 182 H 187 H Lactic Acid Calcium AST Lactate Dehydrogenase Total Creatine Kinase CK-MB (CK-2) C-Reactive Protein Total Protein Albumin Urine WBC (Auto) Urine Creatinine Urine Total Protein Coronavirus (PCR) 05/30/20 05/30/20 05/30/20 15:58 17:57 23:36 WBC RBC Hgb Hct RDW Lymph % (Auto) Coal % (Auto) Lymph # Coal # Seg Neutrophils % Seg Neutrophils # D-Dimer Heparin Anti-Xa Level 1.03 H ABG pH ABG pO2 ABG HCO3 ABG O2 Saturation ABG Base Excess ABG Hemoglobin VBG pH Oxyhemoglobin Sodium Potassium Chloride Carbon Dioxide BUN Creatinine Glucose POC Glucose 208 H 185 H Lactic Acid Calcium AST Lactate Dehydrogenase Total Creatine Kinase CK-MB (CK-2) C-Reactive Protein Total Protein Albumin Urine WBC (Auto) Urine Creatinine Urine Total Protein Coronavirus (PCR) 05/31/20 05/31/20 05/31/20 02:16 03:55 06:16 WBC RBC Hgb 9.2 L Hct 27.5 L RDW Lymph % (Auto) Coal % (Auto) Lymph # Coal # Seg Neutrophils % Seg Neutrophils # D-Dimer Heparin Anti-Xa Level ABG pH ABG pO2 94.7 H ABG HCO3 18.6 L ABG O2 Saturation ABG Base Excess -5.5 L ABG Hemoglobin 7.9 L VBG pH Oxyhemoglobin Sodium Potassium Chloride Carbon Dioxide BUN Creatinine Glucose POC Glucose 160 H Lactic Acid Calcium AST Lactate Dehydrogenase Total Creatine Kinase CK-MB (CK-2) C-Reactive Protein Total Protein Albumin Urine WBC (Auto) Urine Creatinine Urine Total Protein Coronavirus (PCR) 05/31/20 05/31/20 05/31/20 12:20 13:03 18:13 WBC RBC Hgb Hct RDW Lymph % (Auto) Coal % (Auto) Lymph # Coal # Seg Neutrophils % Seg Neutrophils # D-Dimer Heparin Anti-Xa Level ABG pH ABG pO2 ABG HCO3 ABG O2 Saturation ABG Base Excess ABG Hemoglobin VBG pH Oxyhemoglobin Sodium Potassium Chloride Carbon Dioxide 18 L BUN 48 H Creatinine 1.6 H Glucose 115 H POC Glucose 128 H 159 H Lactic Acid Calcium 8.3 L AST Lactate Dehydrogenase Total Creatine Kinase CK-MB (CK-2) C-Reactive Protein Total Protein 5.4 L Albumin 2.4 L Urine WBC (Auto) Urine Creatinine Urine Total Protein Coronavirus (PCR) 05/31/20 06/01/20 06/01/20 23:51 04:00 05:48 WBC RBC Hgb Hct RDW Lymph % (Auto) Coal % (Auto) Lymph # Coal # Seg Neutrophils % Seg Neutrophils # D-Dimer Heparin Anti-Xa Level ABG pH ABG pO2 109.8 H ABG HCO3 18.8 L ABG O2 Saturation ABG Base Excess -5.9 L ABG Hemoglobin 7.8 L VBG pH Oxyhemoglobin Sodium Potassium Chloride Carbon Dioxide BUN Creatinine Glucose POC Glucose 171 H 133 H Lactic Acid Calcium AST Lactate Dehydrogenase Total Creatine Kinase CK-MB (CK-2) C-Reactive Protein Total Protein Albumin Urine WBC (Auto) Urine Creatinine Urine Total Protein Coronavirus (PCR) 06/01/20 06/01/20 06/02/20 12:28 17:29 00:08 WBC RBC Hgb Hct RDW Lymph % (Auto) Coal % (Auto) Lymph # Coal # Seg Neutrophils % Seg Neutrophils # D-Dimer Heparin Anti-Xa Level ABG pH ABG pO2 ABG HCO3 ABG O2 Saturation ABG Base Excess ABG Hemoglobin VBG pH Oxyhemoglobin Sodium Potassium Chloride Carbon Dioxide BUN Creatinine Glucose POC Glucose 199 H 209 H 162 H Lactic Acid Calcium AST Lactate Dehydrogenase Total Creatine Kinase CK-MB (CK-2) C-Reactive Protein Total Protein Albumin Urine WBC (Auto) Urine Creatinine Urine Total Protein Coronavirus (PCR) 06/02/20 06/02/20 06/02/20 04:20 04:20 04:44 WBC RBC Hgb 10.0 L Hct RDW Lymph % (Auto) Coal % (Auto) Lymph # Coal # Seg Neutrophils % Seg Neutrophils # D-Dimer Heparin Anti-Xa Level 0.10 L ABG pH ABG pO2 150.6 H ABG HCO3 ABG O2 Saturation ABG Base Excess -4.1 L ABG Hemoglobin 11.8 L VBG pH Oxyhemoglobin Sodium Potassium Chloride Carbon Dioxide BUN Creatinine Glucose POC Glucose Lactic Acid Calcium AST Lactate Dehydrogenase Total Creatine Kinase CK-MB (CK-2) C-Reactive Protein Total Protein Albumin Urine WBC (Auto) Urine Creatinine Urine Total Protein Coronavirus (PCR) 06/02/20 06/02/20 06/02/20 05:53 12:04 13:49 WBC RBC Hgb Hct RDW Lymph % (Auto) Coal % (Auto) Lymph # Coal # Seg Neutrophils % Seg Neutrophils # D-Dimer Heparin Anti-Xa Level 0.28 L ABG pH ABG pO2 ABG HCO3 ABG O2 Saturation ABG Base Excess ABG Hemoglobin VBG pH Oxyhemoglobin Sodium Potassium Chloride Carbon Dioxide BUN Creatinine Glucose POC Glucose 149 H 220 H Lactic Acid Calcium AST Lactate Dehydrogenase Total Creatine Kinase CK-MB (CK-2) C-Reactive Protein Total Protein Albumin Urine WBC (Auto) Urine Creatinine Urine Total Protein Coronavirus (PCR) 06/02/20 06/02/20 06/03/20 13:49 18:31 00:42 WBC RBC Hgb Hct RDW Lymph % (Auto) Coal % (Auto) Lymph # Coal # Seg Neutrophils % Seg Neutrophils # D-Dimer 769.68 H Heparin Anti-Xa Level ABG pH ABG pO2 ABG HCO3 ABG O2 Saturation ABG Base Excess ABG Hemoglobin VBG pH Oxyhemoglobin Sodium Potassium Chloride Carbon Dioxide BUN Creatinine Glucose POC Glucose 225 H 212 H Lactic Acid Calcium AST Lactate Dehydrogenase Total Creatine Kinase CK-MB (CK-2) C-Reactive Protein Total Protein Albumin Urine WBC (Auto) Urine Creatinine Urine Total Protein Coronavirus (PCR) 06/03/20 06/03/20 06/03/20 05:16 05:16 05:25 WBC 11.4 H RBC Hgb Hct RDW 16.4 H Lymph % (Auto) Coal % (Auto) Lymph # Coal # Seg Neutrophils % Seg Neutrophils # D-Dimer Heparin Anti-Xa Level ABG pH ABG pO2 160.9 H ABG HCO3 19.4 L ABG O2 Saturation ABG Base Excess -4.9 L ABG Hemoglobin 7.0 L VBG pH Oxyhemoglobin Sodium Potassium Chloride Carbon Dioxide 18 L BUN 65 H Creatinine 2.0 H Glucose 175 H POC Glucose Lactic Acid Calcium 8.0 L AST Lactate Dehydrogenase Total Creatine Kinase CK-MB (CK-2) C-Reactive Protein Total Protein 5.5 L Albumin 2.2 L Urine WBC (Auto) Urine Creatinine Urine Total Protein Coronavirus (PCR) 06/03/20 06/03/20 06/03/20 06:07 11:58 18:24 WBC RBC Hgb Hct RDW Lymph % (Auto) Coal % (Auto) Lymph # Coal # Seg Neutrophils % Seg Neutrophils # D-Dimer Heparin Anti-Xa Level ABG pH ABG pO2 ABG HCO3 ABG O2 Saturation ABG Base Excess ABG Hemoglobin VBG pH Oxyhemoglobin Sodium Potassium Chloride Carbon Dioxide BUN Creatinine Glucose POC Glucose 177 H 163 H 211 H Lactic Acid Calcium AST Lactate Dehydrogenase Total Creatine Kinase CK-MB (CK-2) C-Reactive Protein Total Protein Albumin Urine WBC (Auto) Urine Creatinine Urine Total Protein Coronavirus (PCR) 06/03/20 06/03/20 06/04/20 21:50 Unknown 00:26 WBC RBC Hgb Hct RDW Lymph % (Auto) Coal % (Auto) Lymph # Coal # Seg Neutrophils % Seg Neutrophils # D-Dimer Heparin Anti-Xa Level ABG pH ABG pO2 ABG HCO3 ABG O2 Saturation ABG Base Excess ABG Hemoglobin VBG pH Oxyhemoglobin Sodium 135 L Potassium Chloride Carbon Dioxide 18 L BUN Creatinine Glucose POC Glucose 241 H Lactic Acid Calcium AST Lactate Dehydrogenase Total Creatine Kinase CK-MB (CK-2) C-Reactive Protein Total Protein Albumin Urine WBC (Auto) 11.0 H Urine Creatinine Urine Total Protein Coronavirus (PCR) 06/04/20 06/04/20 06/04/20 03:35 04:19 04:19 WBC RBC 3.15 L Hgb 8.9 L Hct 26.8 L D RDW 15.9 H Lymph % (Auto) 6.0 L Coal % (Auto) Lymph # 0.6 L Coal # Seg Neutrophils % 86.6 H Seg Neutrophils # 9.1 H D-Dimer Heparin Anti-Xa Level ABG pH 7.331 L ABG pO2 ABG HCO3 ABG O2 Saturation ABG Base Excess -4.7 L ABG Hemoglobin 11.0 L VBG pH Oxyhemoglobin 93.9 L Sodium 136 L Potassium Chloride Carbon Dioxide 20 L BUN 73 H Creatinine 2.0 H Glucose 192 H POC Glucose Lactic Acid Calcium 8.0 L AST Lactate Dehydrogenase 271 H Total Creatine Kinase CK-MB (CK-2) C-Reactive Protein 2.20 H Total Protein 5.0 L Albumin 2.0 L Urine WBC (Auto) Urine Creatinine Urine Total Protein Coronavirus (PCR) 06/04/20 06/04/20 06/04/20 04:19 05:51 11:48 WBC RBC Hgb Hct RDW Lymph % (Auto) Coal % (Auto) Lymph # Coal # Seg Neutrophils % Seg Neutrophils # D-Dimer 414.52 H Heparin Anti-Xa Level ABG pH ABG pO2 ABG HCO3 ABG O2 Saturation ABG Base Excess ABG Hemoglobin VBG pH Oxyhemoglobin Sodium Potassium Chloride Carbon Dioxide BUN Creatinine Glucose POC Glucose 179 H 213 H Lactic Acid Calcium AST Lactate Dehydrogenase Total Creatine Kinase CK-MB (CK-2) C-Reactive Protein Total Protein Albumin Urine WBC (Auto) Urine Creatinine Urine Total Protein Coronavirus (PCR) 06/04/20 06/05/20 06/05/20 18:25 00:16 05:00 WBC RBC Hgb Hct RDW Lymph % (Auto) Coal % (Auto) Lymph # Coal # Seg Neutrophils % Seg Neutrophils # D-Dimer Heparin Anti-Xa Level ABG pH 7.286 L ABG pO2 96.2 H ABG HCO3 ABG O2 Saturation ABG Base Excess -6.3 L ABG Hemoglobin 8.8 L VBG pH Oxyhemoglobin 94.8 L Sodium Potassium Chloride Carbon Dioxide BUN Creatinine Glucose POC Glucose 238 H 183 H Lactic Acid Calcium AST Lactate Dehydrogenase Total Creatine Kinase CK-MB (CK-2) C-Reactive Protein Total Protein Albumin Urine WBC (Auto) Urine Creatinine Urine Total Protein Coronavirus (PCR) 06/05/20 06/05/20 06/05/20 05:39 07:25 07:25 WBC RBC 2.97 L Hgb 8.7 L Hct 25.7 L RDW 16.0 H Lymph % (Auto) 8.8 L Coal % (Auto) 13.3 H Lymph # 0.8 L Coal # 1.3 H Seg Neutrophils % 77.3 H Seg Neutrophils # D-Dimer Heparin Anti-Xa Level ABG pH ABG pO2 ABG HCO3 ABG O2 Saturation ABG Base Excess ABG Hemoglobin VBG pH Oxyhemoglobin Sodium 133 L Potassium Chloride Carbon Dioxide 17 L BUN 89 H Creatinine 2.8 H Glucose 176 H POC Glucose 149 H Lactic Acid Calcium 7.7 L AST Lactate Dehydrogenase Total Creatine Kinase CK-MB (CK-2) C-Reactive Protein Total Protein 4.2 L Albumin 1.9 L Urine WBC (Auto) Urine Creatinine Urine Total Protein Coronavirus (PCR) 06/05/20 06/05/20 06/05/20 07:25 12:05 15:41 WBC RBC Hgb Hct RDW Lymph % (Auto) Coal % (Auto) Lymph # Coal # Seg Neutrophils % Seg Neutrophils # D-Dimer Heparin Anti-Xa Level 0.76 H 0.81 H ABG pH ABG pO2 ABG HCO3 ABG O2 Saturation ABG Base Excess ABG Hemoglobin VBG pH Oxyhemoglobin Sodium Potassium Chloride Carbon Dioxide BUN Creatinine Glucose POC Glucose 198 H Lactic Acid Calcium AST Lactate Dehydrogenase Total Creatine Kinase CK-MB (CK-2) C-Reactive Protein Total Protein Albumin Urine WBC (Auto) Urine Creatinine Urine Total Protein Coronavirus (PCR) 06/05/20 06/05/20 06/06/20 18:08 23:25 04:00 WBC RBC Hgb Hct RDW Lymph % (Auto) Coal % (Auto) Lymph # Coal # Seg Neutrophils % Seg Neutrophils # D-Dimer Heparin Anti-Xa Level ABG pH ABG pO2 ABG HCO3 ABG O2 Saturation ABG Base Excess ABG Hemoglobin VBG pH Oxyhemoglobin Sodium Potassium Chloride Carbon Dioxide BUN Creatinine Glucose POC Glucose 223 H 169 H Lactic Acid Calcium AST Lactate Dehydrogenase Total Creatine Kinase CK-MB (CK-2) C-Reactive Protein Total Protein Albumin Urine WBC (Auto) 15.0 H Urine Creatinine Urine Total Protein Coronavirus (PCR) 06/06/20 06/06/20 06/06/20 04:00 05:33 05:38 WBC RBC 2.97 L Hgb 8.7 L Hct 26.8 L RDW 16.8 H Lymph % (Auto) Coal % (Auto) Lymph # Coal # Seg Neutrophils % Seg Neutrophils # D-Dimer Heparin Anti-Xa Level ABG pH ABG pO2 ABG HCO3 ABG O2 Saturation ABG Base Excess ABG Hemoglobin VBG pH Oxyhemoglobin Sodium Potassium Chloride Carbon Dioxide BUN Creatinine Glucose POC Glucose 186 H Lactic Acid Calcium AST Lactate Dehydrogenase Total Creatine Kinase CK-MB (CK-2) C-Reactive Protein Total Protein Albumin Urine WBC (Auto) Urine Creatinine 82.2 H Urine Total Protein 196 H Coronavirus (PCR) 06/06/20 06/06/20 06/06/20 05:38 12:25 17:03 WBC RBC Hgb Hct RDW Lymph % (Auto) Coal % (Auto) Lymph # Coal # Seg Neutrophils % Seg Neutrophils # D-Dimer Heparin Anti-Xa Level ABG pH ABG pO2 ABG HCO3 ABG O2 Saturation ABG Base Excess ABG Hemoglobin VBG pH Oxyhemoglobin Sodium 134 L Potassium 5.2 H Chloride Carbon Dioxide 18 L BUN 97 H Creatinine 2.5 H Glucose 193 H POC Glucose 239 H 252 H Lactic Acid Calcium 7.5 L AST Lactate Dehydrogenase Total Creatine Kinase CK-MB (CK-2) C-Reactive Protein Total Protein 4.1 L Albumin 1.9 L Urine WBC (Auto) Urine Creatinine Urine Total Protein Coronavirus (PCR) 06/07/20 06/07/20 06/07/20 00:16 01:49 04:00 WBC RBC 2.91 L Hgb 8.4 L Hct 25.0 L RDW 16.1 H Lymph % (Auto) 5.7 L Coal % (Auto) 10.5 H Lymph # 0.6 L Coal # 1.1 H Seg Neutrophils % 83.6 H Seg Neutrophils # 9.1 H D-Dimer Heparin Anti-Xa Level 0.26 L ABG pH ABG pO2 ABG HCO3 ABG O2 Saturation ABG Base Excess ABG Hemoglobin VBG pH Oxyhemoglobin Sodium Potassium Chloride Carbon Dioxide BUN Creatinine Glucose POC Glucose 173 H Lactic Acid Calcium AST Lactate Dehydrogenase Total Creatine Kinase CK-MB (CK-2) C-Reactive Protein Total Protein Albumin Urine WBC (Auto) Urine Creatinine Urine Total Protein Coronavirus (PCR) 06/07/20 06/07/20 06/07/20 04:00 04:54 05:51 WBC RBC Hgb Hct RDW Lymph % (Auto) Coal % (Auto) Lymph # Coal # Seg Neutrophils % Seg Neutrophils # D-Dimer Heparin Anti-Xa Level ABG pH 7.317 L ABG pO2 71.4 L ABG HCO3 ABG O2 Saturation 94.3 L ABG Base Excess -4.8 L ABG Hemoglobin 7.1 L VBG pH Oxyhemoglobin 92.2 L Sodium 133 L Potassium Chloride Carbon Dioxide 18 L BUN 100 H Creatinine 2.5 H Glucose 158 H POC Glucose 168 H Lactic Acid Calcium 7.6 L AST Lactate Dehydrogenase Total Creatine Kinase CK-MB (CK-2) C-Reactive Protein Total Protein 4.7 L Albumin 2.0 L Urine WBC (Auto) Urine Creatinine Urine Total Protein Coronavirus (PCR) Allied health notes reviewed: nursing
[2020-06-07] MEDS: carvediloL 12.5 MG TAB PO SCH ×2 (10:07→21:42)
[2020-06-07] MEDS: amLODIPine 10 MG TAB PO SCH (10:08)
[2020-06-07] MEDS: SODIUM BICARBONATE 650 MG TAB PO SCH (10:08)
[2020-06-07] MEDS: LANSOPRAZOLE 30 MG SOLUTAB FEEDTUBE SCH ×2 (10:08→21:43)
[2020-06-07] MEDS: levETIRAcetam 500 MG TAB PO SCH ×2 (10:08→21:50)
[2020-06-07] MEDS: QUEtiapine 200 MG TAB PO SCH (10:08)
[2020-06-07] MEDS: ALBUMIN HUMAN 25% (12.5 GM/50 ML) INJ IV SCH ×2 (10:09→21:41)
[2020-06-07] MEDS: DEXAMETHASONE 4 MG TAB PO SCH (10:09)
[2020-06-07] MEDS: SENNOSIDES ORAL LIQD 8.8 MG/5 ML ORAL LIQD FEEDTUBE SCH (10:11)
--- NOTE | 2020-06-07 10:18 | Progress Note ---
Assessment and Plan - Patient Problems (1) Acute kidney injury (AVANI) with acute tubular necrosis (ATN) Current Visit: Yes Status: Acute Plan to address problem: AVANI most likely secondary to ATN in the setting of COIVD 19 pneumonia/s/p cardiac arrest. urine Na was low at 20 indicating superimposed intravascular depetion/pre-renal azotemia. S/p IV NS bolus, s/p albumim 12.5g bid x 4 doses to increase oncotic pressure. cont bicarb 1350mg bid for treatment of met acidosis. No urgent indication for renal replacement therapy at present, however will co nsider if pt becomes more oliguric along with worsening azotemia, acidosis/persistent hyperkalemia despite above treatment. Cont supportive care for ATN, avoid further nephrotoxins, IV contrast. (2) Pneumonia due to COVID-19 virus Current Visit: Yes Status: Acute Plan to address problem: s/p Remdesivir, IV Dexamethasone. trend inflammatory markers. management as per ID/pulm/CCM (3) Acute hypoxemic respiratory failure Current Visit: Yes Status: Acute Plan to address problem: on ventilator support (4) Metabolic acidosis Current Visit: Yes Status: Acute Plan to address problem: cont Na bicarb 1350mg bid (5) Hyperkalemia Current Visit: Yes Status: Acute Plan to address problem: normalized. cont 2g K renal diet. Cont Na bicarb to correct metabolic acidosis. Subjective Date of service: 06/07/20 Principal diagnosis: Ac hypoxemic resp failure; COVID-19; pneumonia; CHF; Pulm HTN; OHS; DM II Interval history: Pt remains intubated, on vent support. pt remains non-oliguric Objective - Exam Narrative Exam: Exam reviewed in chart d/t PPE preservation and risk of transmission - Vital Signs Vital signs: Vital Signs - 12hr 06/06/20 06/06/20 06/06/20 22:21 22:31 22:33 Temperature Pulse Rate 58 L 58 L 58 L Pulse Rate [ From Monitor] Respiratory 14 14 14 Rate Blood Pressure 149/55 150/55 150/55 O2 Sat by Pulse 99 99 99 Oximetry 06/06/20 06/06/20 06/06/20 22:41 22:51 22:55 Temperature Pulse Rate 57 L 56 L 56 L Pulse Rate [ From Monitor] Respiratory 14 14 Rate Blood Pressure 150/55 152/55 150/54 O2 Sat by Pulse 99 99 Oximetry 06/06/20 06/06/20 06/06/20 23:01 23:11 23:21 Temperature Pulse Rate 55 L 56 L 56 L Pulse Rate [ From Monitor] Respiratory 14 14 14 Rate Blood Pressure 150/54 150/54 149/55 O2 Sat by Pulse 99 98 99 Oximetry 06/06/20 06/06/20 06/06/20 23:31 23:32 23:41 Temperature 98.8 F Pulse Rate 55 L 55 L Pulse Rate [ From Monitor] Respiratory 14 14 Rate Blood Pressure 150/54 150/54 O2 Sat by Pulse 99 98 Oximetry 06/06/20 06/07/20 06/07/20 23:51 00:00 00:07 Temperature Pulse Rate 55 L 55 L 56 L Pulse Rate [ 54 L From Monitor] Respiratory 13 14 Rate Blood Pressure 151/55 151/55 136/55 O2 Sat by Pulse 98 98 98 Oximetry 06/07/20 06/07/20 06/07/20 00:11 00:21 00:30 Temperature Pulse Rate 55 L 55 L 55 L Pulse Rate [ From Monitor] Respiratory 14 14 14 Rate Blood Pressure 136/55 148/53 149/57 O2 Sat by Pulse 98 98 98 Oximetry 06/07/20 06/07/20 06/07/20 00:41 00:51 01:00 Temperature Pulse Rate 54 L 55 L 55 L Pulse Rate [ From Monitor] Respiratory 14 14 14 Rate Blood Pressure 149/57 147/54 146/55 O2 Sat by Pulse 98 98 98 Oximetry 06/07/20 06/07/20 06/07/20 01:11 01:21 01:31 Temperature Pulse Rate 55 L 54 L 54 L Pulse Rate [ From Monitor] Respiratory 14 14 14 Rate Blood Pressure 146/55 146/55 147/56 O2 Sat by Pulse 98 98 98 Oximetry 06/07/20 06/07/20 06/07/20 01:41 01:51 02:01 Temperature Pulse Rate 55 L 54 L 54 L Pulse Rate [ From Monitor] Respiratory 14 14 14 Rate Blood Pressure 147/56 146/55 150/54 O2 Sat by Pulse 98 98 98 Oximetry 06/07/20 06/07/20 06/07/20 02:11 02:21 02:30 Temperature Pulse Rate 54 L 55 L 55 L Pulse Rate [ From Monitor] Respiratory 14 14 14 Rate Blood Pressure 146/55 147/55 150/56 O2 Sat by Pulse 98 98 98 Oximetry 06/07/20 06/07/20 06/07/20 02:41 02:51 03:00 Temperature Pulse Rate 54 L 54 L 55 L Pulse Rate [ From Monitor] Respiratory 14 14 14 Rate Blood Pressure 146/55 148/54 147/55 O2 Sat by Pulse 97 96 97 Oximetry 06/07/20 06/07/20 06/07/20 03:11 03:21 03:25 Temperature 98.5 F Pulse Rate 55 L 54 L Pulse Rate [ From Monitor] Respiratory 14 14 Rate Blood Pressure 147/55 146/55 O2 Sat by Pulse 96 96 Oximetry 06/07/20 06/07/20 06/07/20 03:30 03:41 03:51 Temperature Pulse Rate 55 L 55 L 54 L Pulse Rate [ From Monitor] Respiratory 14 14 14 Rate Blood Pressure 147/56 147/56 148/52 O2 Sat by Pulse 96 96 96 Oximetry 06/07/20 06/07/20 06/07/20 04:00 04:11 04:21 Temperature Pulse Rate 55 L 55 L 55 L Pulse Rate [ 55 L From Monitor] Respiratory 14 14 14 Rate Blood Pressure 145/52 145/52 144/54 O2 Sat by Pulse 96 96 97 Oximetry 06/07/20 06/07/20 06/07/20 04:30 04:41 04:42 Temperature Pulse Rate 54 L 54 L 54 L Pulse Rate [ From Monitor] Respiratory 14 14 Rate Blood Pressure 144/55 148/52 144/55 O2 Sat by Pulse 97 97 97 Oximetry 06/07/20 06/07/20 06/07/20 04:51 05:00 05:11 Temperature Pulse Rate 68 63 60 Pulse Rate [ From Monitor] Respiratory 15 14 14 Rate Blood Pressure 147/56 162/64 162/64 O2 Sat by Pulse 96 97 97 Oximetry 06/07/20 06/07/20 06/07/20 05:21 05:31 05:41 Temperature Pulse Rate 58 L 57 L 56 L Pulse Rate [ From Monitor] Respiratory 14 14 14 Rate Blood Pressure 153/54 148/51 148/51 O2 Sat by Pulse 98 98 99 Oximetry 06/07/20 06/07/20 06/07/20 05:51 05:57 05:58 Temperature Pulse Rate 56 L 56 L 56 L Pulse Rate [ From Monitor] Respiratory 14 Rate Blood Pressure 145/51 145/51 145/56 O2 Sat by Pulse 98 Oximetry 06/07/20 06/07/20 06/07/20 06:01 06:11 06:21 Temperature Pulse Rate 56 L 56 L 73 Pulse Rate [ From Monitor] Respiratory 14 14 13 Rate Blood Pressure 144/50 145/51 143/50 O2 Sat by Pulse 98 98 99 Oximetry 06/07/20 06/07/20 06/07/20 06:30 06:40 06:51 Temperature Pulse Rate 92 H 80 76 Pulse Rate [ From Monitor] Respiratory 8 L 10 L 7 L Rate Blood Pressure 143/50 207/89 147/78 O2 Sat by Pulse 95 98 97 Oximetry 06/07/20 06/07/20 06/07/20 07:00 07:11 07:21 Temperature Pulse Rate 70 71 72 Pulse Rate [ From Monitor] Respiratory 9 L 8 L 7 L Rate Blood Pressure 152/68 147/78 134/56 O2 Sat by Pulse 97 98 97 Oximetry 06/07/20 06/07/20 06/07/20 07:30 07:41 07:51 Temperature Pulse Rate 69 67 67 Pulse Rate [ From Monitor] Respiratory 7 L 7 L 7 L Rate Blood Pressure 137/63 137/63 128/59 O2 Sat by Pulse 96 98 98 Oximetry 06/07/20 06/07/20 06/07/20 08:00 08:11 08:19 Temperature Pulse Rate 63 68 66 Pulse Rate [ 82 From Monitor] Respiratory 12 8 L Rate Blood Pressure 130/58 130/58 134/58 O2 Sat by Pulse 98 98 96 Oximetry 06/07/20 06/07/20 08:21 08:31 Temperature Pulse Rate 66 80 Pulse Rate [ From Monitor] Respiratory 14 12 Rate Blood Pressure 134/58 171/84 O2 Sat by Pulse 96 99 Oximetry - Lab 06/07/20 04:00 06/07/20 04:00 Most recent lab results ABG pH 7.317 pH Units (7.350-7.450) L 06/07/20 04:54 ABG pCO2 41.9 mm Hg 06/07/20 04:54 ABG pO2 71.4 mm Hg (80.0-90.0) L 06/07/20 04:54 ABG HCO3 20.9 mmol/L (20.0-26.0) 06/07/20 04:54 ABG O2 Saturation 94.3 % (95.0-99.0) L 06/07/20 04:54 Calcium 7.6 mg/dL (8.4-10.2) L 06/07/20 04:00 Urine Creatinine 82.2 mg/dL (0.1-20.0) H 06/06/20 04:00 Urine Sodium 20 mmol/L 06/06/20 04:00 Urine Total Protein 196 mg/dL (5-11.8) H 06/06/20 04:00 Medications & Allergies - Medications Allergies/Adverse Reactions: Allergies No Known Allergies Allergy (Verified 01/21/20 12:28) Home Medications: Home Medications Medication Instructions Recorded Confirmed Last Taken Type AtorvaSTATin [Lipitor] 20 mg PO QHS 05/12/20 05/29/20 Unknown History lisinopriL [Zestril TAB] 40 mg PO QDAY 05/12/20 05/29/20 Unknown History metFORMIN [Glucophage] 850 mg PO BID 05/12/20 05/29/20 Unknown History Acetaminophen [Acetaminophen TAB] 650 mg PO Q4H PRN tablet 05/13/20 05/29/20 Unknown Rx Dicyclomine [Bentyl] 20 mg PO BID #20 tablet 05/13/20 05/29/20 Unknown Rx Famotidine [Pepcid] 20 mg PO BID #30 tablet 05/13/20 05/29/20 Unknown Rx carvediloL [Coreg] 6.25 mg PO BID #60 05/13/20 05/29/20 Unknown Rx Active Medications: Generic Name Dose Route Start Last Admin Trade Name Emeterioq PRN Reason Stop Dose Admin Albumin Human 12.5 gm 06/06/20 10:00 06/06/20 22:55 Alburx 25% (Albumin) IV 06/07/20 22:01 12.5 gm Q12HR NELSON Administration Amlodipine Besylate 10 mg 06/02/20 11:00 06/06/20 10:49 Amlodipine PO 10 mg DAILY NELSON Administration Lipase/Protease/Amylase 1 each 05/29/20 13:39 Pancreaze 10,500 Unit FEEDTUBE PRN PRN For Clogged Feeding Tube Carvedilol 12.5 mg 06/03/20 10:00 06/06/20 22:55 Coreg PO Not Given BID NELSON Clonidine HCl 0.1 mg 06/04/20 06:00 06/07/20 05:58 Catapres PO 0.1 mg Q8HR NELSON Administration Clonidine HCl 0.2 mg 06/04/20 06:00 06/07/20 05:58 Catapres PO 0.2 mg Q8HR NELSON Administration Fentanyl 50 mcg 05/29/20 14:21 Sublimaze IV Q10MIN PRN ANALGESIA Glycopyrrolate 1 mg 06/05/20 15:00 06/07/20 08:28 Robinul PO 1 mg TID NELSON Administration Hydralazine HCl 50 mg 06/03/20 09:00 06/07/20 05:57 Apresoline PO 50 mg Q8HR NELSON Administration Hydrophilic Ointment 1 applic 05/28/20 13:49 Vaseline Lip Therapy TP Q2HR PRN Dry Lips Heparin Sodium/Sodium Chloride 25,000 unit in 500 mls @ 30 mls/hr 05/29/20 15:00 06/07/20 06:14 Heparin/ 0.45% Nacl-25,000 Unit/500 Ml IV 1,350 units/hr TITR NELSON 27 mls/hr Titration Protocol 1,500 UNITS/HR Fentanyl Citrate 2,000 mcg in 100 mls @ 6.095 mls/hr 05/29/20 15:00 06/07/20 08:30 Fentanyl Drip Premix IV 0 mcg/kg/hr TITR NELSON 0 mls/hr Titration Protocol 1 MCG/KG/HR Nicardipine HCl 50 mg/ Sodium 250 mls @ 25 mls/hr 06/02/20 09:00 06/02/20 11:23 Chloride IV 0 mg/hr TITR NELSON 0 mls/hr Titration Protocol 5 MG/HR Insulin Human Lispro 0 unit 05/29/20 18:00 06/07/20 05:56 Humalog SUB-Q 3 unit Q6H NELSON Administration Protocol Labetalol HCl 20 mg 06/03/20 09:00 Labetalol IV Q4H PRN HYPERTENSION Lansoprazole 30 mg 06/05/20 22:00 06/06/20 22:55 Prevacid Solutab FEEDTUBE 30 mg BID NELSON Administration Levetiracetam 500 mg 05/29/20 22:00 06/06/20 22:55 Keppra PO 500 mg BID NELSON Administration Multi-Ingred Cream/Lotion/Oil/Oint 1 applic 05/28/20 13:49 Artificial Tears Ophth Oint OU Q4HR PRN Dry Eye(s) Ondansetron HCl 4 mg 06/02/20 09:00 Zofran IV Q8H PRN Nausea And Vomiting Quetiapine Fumarate 200 mg 06/03/20 10:00 06/06/20 22:55 Seroquel PO 200 mg BID NELSON Administration Scopolamine 1 each 06/05/20 14:00 06/05/20 14:15 Transderm-Scop TD 1 each Q3D NELSON Administration Senna 17.6 mg 06/03/20 10:00 06/06/20 22:55 Senokot FEEDTUBE 17.6 mg BID NELSON Administration Simple Syrup 15 ml 05/29/20 13:39 Simple Syrup FEEDTUBE PRN PRN Hypoglycemia Simple Syrup 30 ml 05/29/20 13:39 Simple Syrup FEEDTUBE PRN PRN Hypoglycemia Sodium Bicarbonate 325 mg 05/29/20 13:39 Sodium Bicarbonate FEEDTUBE PRN PRN For Clogged Feeding Tube Sodium Bicarbonate 650 mg 06/06/20 10:00 06/06/20 22:55 Sodium Bicarbonate PO 650 mg BID NELSON Administration Sodium Chloride 10 ml 05/28/20 22:00 06/06/20 22:55 Sodium Chloride Flush Syringe 10 Ml IV 10 ml BID NELSON Administration Sodium Chloride 10 ml 05/28/20 19:08 Sodium Chloride Flush Syringe 10 Ml IV PRN PRN LINE FLUSH
--- NOTE | 2020-06-07 11:37 | Progress Note ---
Subjective Date of service: 06/07/20 Principal diagnosis: Ac hypoxemic resp failure; COVID-19; pneumonia; CHF; Pulm HTN; OHS; DM II Interval history: Principal diagnosis: Ac hypoxemic resp failure; COVID-19; pneumonia; CHF; Pulm HTN; OHS; DM II Interval history: Remains critically ill on ventilator, Tele sinus lesvia, no arrhythmia at this time. Assessment and Plan follow-up Echo EF 45-50%, mild to mod LVH No arrhythmia on tele at this itime - Patient Problems (1) Respiratory failure Current Visit: Yes Status: Acute Plan to address problem: Severe Covid infection Supportive management No acute cardiac intervention Objective Vital Signs Temp Pulse Pulse Resp BP Pulse Ox 06/07/20 11:21 66 9 L 140/55 98 06/07/20 11:11 68 12 150/58 98 06/07/20 11:00 69 10 L 150/58 99 06/07/20 10:51 66 9 L 140/55 98 06/07/20 10:41 66 10 L 139/64 97 06/07/20 10:30 68 9 L 139/64 98 06/07/20 10:21 66 9 L 135/60 99 06/07/20 10:11 67 9 L 123/60 98 06/07/20 10:08 67 123/60 06/07/20 10:07 67 123/60 06/07/20 10:00 68 9 L 123/60 98 06/07/20 09:51 66 9 L 140/60 99 06/07/20 09:41 66 8 L 141/60 99 06/07/20 09:30 67 8 L 141/60 98 06/07/20 09:21 69 9 L 144/63 99 06/07/20 09:11 70 9 L 171/69 99 06/07/20 09:00 75 9 L 171/69 99 06/07/20 08:51 78 8 L 174/81 99 06/07/20 08:41 80 8 L 171/84 99 06/07/20 08:31 80 12 171/84 99 06/07/20 08:21 66 14 134/58 96 06/07/20 08:19 66 134/58 96 06/07/20 08:11 68 8 L 130/58 98 06/07/20 08:00 97.7 F 64 82 12 130/58 98 06/07/20 07:51 67 7 L 128/59 98 06/07/20 07:41 67 7 L 137/63 98 06/07/20 07:30 69 7 L 137/63 96 06/07/20 07:21 72 7 L 134/56 97 06/07/20 07:11 71 8 L 147/78 98 06/07/20 07:00 70 9 L 152/68 97 06/07/20 06:51 76 7 L 147/78 97 06/07/20 06:40 80 10 L 207/89 98 06/07/20 06:30 92 H 8 L 143/50 95 06/07/20 06:21 73 13 143/50 99 06/07/20 06:11 56 L 14 145/51 98 06/07/20 06:01 56 L 14 144/50 98 06/07/20 05:58 56 L 145/56 06/07/20 05:57 56 L 145/51 06/07/20 05:51 56 L 14 145/51 98 06/07/20 05:41 56 L 14 148/51 99 06/07/20 05:31 57 L 14 148/51 98 06/07/20 05:21 58 L 14 153/54 98 06/07/20 05:11 60 14 162/64 97 06/07/20 05:00 63 14 162/64 97 06/07/20 04:51 68 15 147/56 96 06/07/20 04:42 54 L 144/55 97 06/07/20 04:41 54 L 14 148/52 97 06/07/20 04:30 54 L 14 144/55 97 06/07/20 04:21 55 L 14 144/54 97 06/07/20 04:11 55 L 14 145/52 96 06/07/20 04:00 55 L 55 L 14 145/52 96 06/07/20 03:51 54 L 14 148/52 96 06/07/20 03:41 55 L 14 147/56 96 06/07/20 03:30 55 L 14 147/56 96 06/07/20 03:25 98.5 F 06/07/20 03:21 54 L 14 146/55 96 06/07/20 03:11 55 L 14 147/55 96 06/07/20 03:00 55 L 14 147/55 97 06/07/20 02:51 54 L 14 148/54 96 06/07/20 02:41 54 L 14 146/55 97 06/07/20 02:30 55 L 14 150/56 98 06/07/20 02:21 55 L 14 147/55 98 06/07/20 02:11 54 L 14 146/55 98 06/07/20 02:01 54 L 14 150/54 98 06/07/20 01:51 54 L 14 146/55 98 06/07/20 01:41 55 L 14 147/56 98 06/07/20 01:31 54 L 14 147/56 98 06/07/20 01:21 54 L 14 146/55 98 06/07/20 01:11 55 L 14 146/55 98 06/07/20 01:00 55 L 14 146/55 98 06/07/20 00:51 55 L 14 147/54 98 06/07/20 00:41 54 L 14 149/57 98 06/07/20 00:30 55 L 14 149/57 98 06/07/20 00:21 55 L 14 148/53 98 06/07/20 00:11 55 L 14 136/55 98 06/07/20 00:07 56 L 136/55 98 06/07/20 00:00 55 L 54 L 14 151/55 98 06/06/20 23:51 55 L 13 151/55 98 06/06/20 23:41 55 L 14 150/54 98 06/06/20 23:32 98.8 F 06/06/20 23:31 55 L 14 150/54 99 06/06/20 23:21 56 L 14 149/55 99 06/06/20 23:11 56 L 14 150/54 98 06/06/20 23:01 55 L 14 150/54 99 06/06/20 22:55 56 L 150/54 06/06/20 22:51 56 L 14 152/55 99 06/06/20 22:41 57 L 14 150/55 99 06/06/20 22:33 58 L 14 150/55 99 06/06/20 22:31 58 L 14 150/55 99 06/06/20 22:21 58 L 14 149/55 99 06/06/20 22:11 63 14 151/54 98 06/06/20 22:01 61 14 151/54 98 06/06/20 21:51 63 14 153/52 98 06/06/20 21:41 63 14 151/54 98 06/06/20 21:30 59 L 14 151/54 99 06/06/20 21:21 58 L 14 148/52 98 06/06/20 21:11 57 L 14 150/52 99 06/06/20 21:01 58 L 14 150/52 98 06/06/20 20:51 57 L 14 150/53 98 06/06/20 20:45 57 L 150/53 98 06/06/20 20:41 57 L 14 147/52 98 06/06/20 20:31 57 L 14 147/52 97 06/06/20 20:21 57 L 14 148/51 97 06/06/20 20:11 57 L 14 97 06/06/20 20:00 98.4 F 57 L 57 L 14 151/53 98 06/06/20 19:51 56 L 14 154/55 98 06/06/20 19:41 57 L 14 149/53 98 06/06/20 19:31 57 L 14 149/53 98 06/06/20 19:21 57 L 14 144/49 98 06/06/20 19:11 57 L 14 154/55 97 06/06/20 19:01 57 L 14 154/55 98 06/06/20 18:51 58 L 14 155/55 97 06/06/20 18:41 59 L 14 155/54 97 06/06/20 18:31 59 L 14 155/54 98 06/06/20 18:21 59 L 14 149/52 96 06/06/20 18:11 59 L 14 152/52 97 06/06/20 18:01 61 14 152/52 97 06/06/20 17:51 61 14 154/56 96 06/06/20 17:41 62 14 154/54 97 06/06/20 17:30 63 14 154/54 97 06/06/20 17:21 62 13 153/52 98 06/06/20 17:19 63 153/52 98 06/06/20 17:11 62 13 158/53 98 06/06/20 17:00 66 16 178/49 99 06/06/20 16:51 70 9 L 178/49 98 06/06/20 16:41 71 10 L 206/68 99 06/06/20 16:30 78 11 L 206/68 100 06/06/20 16:21 218/107 100 06/06/20 16:10 56 L 15 144/56 99 06/06/20 16:00 98.5 F 57 L 73 14 147/55 99 06/06/20 15:51 57 L 14 147/55 99 06/06/20 15:41 58 L 14 141/53 99 06/06/20 15:31 57 L 14 141/53 99 06/06/20 15:21 57 L 13 142/55 99 06/06/20 15:10 56 L 14 141/54 100 06/06/20 15:01 58 L 13 141/54 99 06/06/20 14:51 57 L 14 142/55 99 06/06/20 14:41 57 L 14 142/54 99 06/06/20 14:31 58 L 14 142/54 99 06/06/20 14:21 58 L 16 142/54 99 06/06/20 14:11 58 L 16 140/52 99 06/06/20 14:01 57 L 14 140/52 99 06/06/20 13:51 57 L 14 143/52 99 06/06/20 13:41 58 L 14 141/54 99 06/06/20 13:31 57 L 14 141/54 99 06/06/20 13:23 59 L 139/54 06/06/20 13:22 59 L 139/54 06/06/20 13:21 57 L 14 139/54 99 06/06/20 13:11 57 L 14 153/58 99 06/06/20 13:01 58 L 14 142/55 99 06/06/20 12:51 59 L 14 153/58 99 06/06/20 12:41 58 L 14 140/53 99 06/06/20 12:36 58 L 140/53 99 06/06/20 12:31 55 L 15 140/53 100 06/06/20 12:21 56 L 12 143/55 100 06/06/20 12:11 57 L 11 L 140/54 100 06/06/20 12:01 56 L 9 L 140/54 100 06/06/20 12:00 98.4 F 57 L 57 L 10 L 100 06/06/20 11:51 57 L 16 140/53 100 08/29/20 11:41 56 L 11 L 135/52 100 - Physical Examination General: Other (intubated on the vent) Neck: Negative: JVD/HJR Cardiac: Positive: Reg Rate and Rhythm Neuro: Positive: Other (Intubated, on the vent) Abdomen: Positive: Soft Skin: Positive: Clear Extremities: Absent: edema - Labs and Meds Cardiac Enzymes 06/07/20 Range/Units 04:00 AST 9 (5-40) units/L CBC 06/07/20 Range/Units 04:00 WBC 10.9 (4.5-11.0) K/mm3 RBC 2.91 L (3.65-5.03) M/mm3 Hgb 8.4 L (10.1-14.3) gm/dl Hct 25.0 L (30.3-42.9) % Plt Count 190 (140-440) K/mm3 Lymph # 0.6 L (1.2-5.4) K/mm3 [place] # 1.1 H (0.0-0.8) K/mm3 Eos # 0.0 (0.0-0.4) K/mm3 Baso # 0.0 (0.0-0.1) K/mm3 Comprehensive Metabolic Panel 06/07/20 Range/Units 04:00 Sodium 133 L (137-145) mmol/L Potassium 4.7 (3.6-5.0) mmol/L Chloride 99.8 (98-107) mmol/L Carbon Dioxide 18 L (22-30) mmol/L BUN 100 H (7-17) mg/dL Creatinine 2.5 H (0.6-1.2) mg/dL Glucose 158 H (65-100) mg/dL Calcium 7.6 L (8.4-10.2) mg/dL AST 9 (5-40) units/L ALT 11 (7-56) units/L Alkaline Phosphatase 65 (35-129) units/L Total Protein 4.7 L (6.3-8.2) g/dL Albumin 2.0 L (3.9-5) g/dL - Allied health notes Allied health notes reviewed: nursing
--- NOTE | 2020-06-07 12:24 | Progress Note ---
Assessment and Plan Cultures: Coronavirus PCR: Positive 05/28/2020 blood culture: no growth 05/28/2020 tracheal aspirate: Usual respiratory bobo 05/28/2020 urine culture: No growth 06/03/2020 urine culture: No growth A/P: 64-year-old female with hypertension, diastolic CHF, pulmonary hypertension, diabetes, obesity hypoventilation syndrome was admitted to the emergency room after she called EMS due to difficulty breathing. On the way to the hospital, patient developed cardiac arrest and was treated as per ACLS protocol: #Bilateral pneumonia: Secondary to COVID-19. Completed 5 days of IV Remdesivir 06/02/2020. #Acute hypoxic respiratory failure: On mechanical ventilation. Minimal vent settings. #Status post PEA arrest, encephalopathy #HF: EF 45-50% #Mild LFT elevation: likely from COVID-19. #Mild AVANI not better Recs: IV/PO Dexamethasone 6 mg daily x 10 days, day 10 Monitor anemia, nursing reporting some coffe ground emesis ? GI bleed Guarded prognosis Angela Savage MD [facility] C: [phone] O: [phone] F: [phone] Subjective Date of service: 06/07/20 Principal diagnosis: Ac hypoxemic resp failure; COVID-19; pneumonia; CHF; Pulm HTN; OHS; DM II Interval history: Remains intubated no fever Objective - Exam Narrative Exam: Physical Exam (reviewed in chart due to PPE conservation and minimize risk of transmission) Constitutional: limited due to PPE conservation strategy Head, Ears, Nose: limited due to PPE conservation strategy Eyes: limited due to PPE conservation strategy Neck: intubated limited due to PPE conservation strategy Oral: limited due to PPE conservation strategy Cardiovascular: limited due to PPE conservation strategy Respiratory: limited due to PPE conservation strategy GI: limited due to PPE conservation strategy Musculoskeletal: limited due to PPE conservation strategy Skin: limited due to PPE conservation strategy Hem/Lymphatic: limited due to PPE conservation strategy Psych: limited due to PPE conservation strategy Neurological: limited due to PPE conservation strategy - Constitutional Vitals: Vital Signs Temp Pulse Resp BP Pulse Ox 97.7 F 66 9 L 140/55 98 06/07/20 08:00 06/07/20 11:21 06/07/20 11:21 06/07/20 11:21 06/07/20 11:21 Temperature -Last 24 Hours Temperature 97.7 F Temperature 98.5 F Temperature 98.8 F Temperature 98.4 F Temperature 98.5 F - Labs CBC & Chem 7: 06/07/20 04:00 06/07/20 04:00 Labs: Abnormal lab results 06/06/20 06/06/20 06/07/20 Range/Units 12:25 17:03 00:16 RBC (3.65-5.03) M/mm3 Hgb (10.1-14.3) gm/dl Hct (30.3-42.9) % RDW (13.2-15.2) % Lymph % (Auto) (13.4-35.0) % Pershing % (Auto) (0.0-7.3) % Lymph # (1.2-5.4) K/mm3 Pershing # (0.0-0.8) K/mm3 Seg Neutrophils % (40.0-70.0) % Seg Neutrophils # (1.8-7.7) K/mm3 Heparin Anti-Xa Level (0.3-0.7) U.I./ml ABG pH (7.350-7.450) pH Units ABG pO2 (80.0-90.0) mm Hg ABG O2 Saturation (95.0-99.0) % ABG Base Excess (-2.0-3.0) mmol/L ABG Hemoglobin (12.0-16.0) gm/dl Oxyhemoglobin (95.0-99.0) % Sodium (137-145) mmol/L Carbon Dioxide (22-30) mmol/L BUN (7-17) mg/dL Creatinine (0.6-1.2) mg/dL Glucose (65-100) mg/dL POC Glucose 239 H 252 H 173 H (70-105) Calcium (8.4-10.2) mg/dL Total Protein (6.3-8.2) g/dL Albumin (3.9-5) g/dL 06/07/20 06/07/20 06/07/20 Range/Units 01:49 04:00 04:00 RBC 2.91 L (3.65-5.03) M/mm3 Hgb 8.4 L (10.1-14.3) gm/dl Hct 25.0 L (30.3-42.9) % RDW 16.1 H (13.2-15.2) % Lymph % (Auto) 5.7 L (13.4-35.0) % Pershing % (Auto) 10.5 H (0.0-7.3) % Lymph # 0.6 L (1.2-5.4) K/mm3 Pershing # 1.1 H (0.0-0.8) K/mm3 Seg Neutrophils % 83.6 H (40.0-70.0) % Seg Neutrophils # 9.1 H (1.8-7.7) K/mm3 Heparin Anti-Xa Level 0.26 L (0.3-0.7) U.I./ml ABG pH (7.350-7.450) pH Units ABG pO2 (80.0-90.0) mm Hg ABG O2 Saturation (95.0-99.0) % ABG Base Excess (-2.0-3.0) mmol/L ABG Hemoglobin (12.0-16.0) gm/dl Oxyhemoglobin (95.0-99.0) % Sodium 133 L (137-145) mmol/L Carbon Dioxide 18 L (22-30) mmol/L BUN 100 H (7-17) mg/dL Creatinine 2.5 H (0.6-1.2) mg/dL Glucose 158 H (65-100) mg/dL POC Glucose (70-105) Calcium 7.6 L (8.4-10.2) mg/dL Total Protein 4.7 L (6.3-8.2) g/dL Albumin 2.0 L (3.9-5) g/dL 06/07/20 06/07/20 Range/Units 04:54 05:51 RBC (3.65-5.03) M/mm3 Hgb (10.1-14.3) gm/dl Hct (30.3-42.9) % RDW (13.2-15.2) % Lymph % (Auto) (13.4-35.0) % Pershing % (Auto) (0.0-7.3) % Lymph # (1.2-5.4) K/mm3 Pershing # (0.0-0.8) K/mm3 Seg Neutrophils % (40.0-70.0) % Seg Neutrophils # (1.8-7.7) K/mm3 Heparin Anti-Xa Level (0.3-0.7) U.I./ml ABG pH 7.317 L (7.350-7.450) pH Units ABG pO2 71.4 L (80.0-90.0) mm Hg ABG O2 Saturation 94.3 L (95.0-99.0) % ABG Base Excess -4.8 L (-2.0-3.0) mmol/L ABG Hemoglobin 7.1 L (12.0-16.0) gm/dl Oxyhemoglobin 92.2 L (95.0-99.0) % Sodium (137-145) mmol/L Carbon Dioxide (22-30) mmol/L BUN (7-17) mg/dL Creatinine (0.6-1.2) mg/dL Glucose (65-100) mg/dL POC Glucose 168 H (70-105) Calcium (8.4-10.2) mg/dL Total Protein (6.3-8.2) g/dL Albumin (3.9-5) g/dL
--- NOTE | 2020-06-07 14:08 | Progress Note ---
Assessment and Plan Assessment and plan: 64 YO Female with a medical history of HTN, Diastolic CHF, Pulmonary HTN, DM, Obesity Hypoventilation Syndrome presents to ED for evaluation of shortness of breath. Patients history taken from EMS staff, ED staff. As per staff, the EMS was notified for difficulty breathing. Upon arrival to the patient's home the patient was found to be in distress and was subsequently transported to [facility] for further evaluation and care. In route to [facility] the patient developed cardiac arrest and was treated in accordance with ACLS protocol with return of ROSC Patient was seen and evaluated in the emergency department and was found to have acute hypoxemic respiratory failure status post cardiac arrest. Patient was intubated and placed on ventilatory support. Patient admitted to ICU due to increased risk of decompensation. Critical care team consulted in ED. She was found to have COVID-19 iinfection and was started on steroids and remdesivir. ID was consulted. Cardiology was consulted for her systolic heart failure and cardiac arrest. 06/01. Patient remains intubated and on ventilatory support today. Patient has multiple organ system failure and has poor prognosis. Patient did not experience significant medical decompensation overnight but no improvement with current therapy. 06/02. Remains intubated. her BP is elevated. Started on nicardipine drip. Cardiology following. 06/03-06/04. BP is better. Hb stable. Completed remdesivir. ID , Cardiology and Critical care team on board 06/05. Bump in creatinine. I/O reviewed. Nephrology consulted. 06/06. Has slight improvement in renal function. Nephrology on board. On SBT today. Vitals stable. 06/07. Stable renal function. No need for HD as per nephrology. She is making urine. Plan for SBT. Patient Problems (1) Acute hypoxemic respiratory failure Current Visit: Yes Status: Acute Plan to address problem: From COVID-19 viral infection Patient intubated, sedated and on ventilatory support. Critical care team on board On SBT as per critical care team The high probability of a clinically significant, sudden or life threatening deterioration of the [pulmonary, renal, cardiac, neuro] system(s) required my full and direct attention, intervention and personal management. The aggregate critical care time was [90] minutes. This time is in addition to time spent performing reported procedures but includes the following: [x] Data Review and interpretation [x] Patient assessment and monitoring of vital signs [x] Documentation [x] Medication orders and management (2) Cardiac arrest Current Visit: Yes Status: Acute Plan to address problem: Cardiology team on board Conservative management as per cardiology (3) Acute renal failure Current Visit: Yes Status: Acute Plan to address problem: Slight improvement in renal function today - Cr 2.5-->2.5 Avoid ACEI and other nephrotoxic medications Nephrology following (4) Coronavirus infection Current Visit: Yes Status: Acute Plan to address problem: Completed remdesivir on 06/02 Continue dexamethasone - Last dose 06/07 ID recs appreciated. Maintained on ventilator (5) CHF (congestive heart failure) Current Visit: Yes Status: Acute Qualifiers: Heart failure type: systolic Heart failure chronicity: acute Qualified Code(s): I50.21 - Acute systolic (congestive) heart failure Plan to address problem: Cardiology following. (6) Coffee ground emesis -Stress ulcers Possible stress ulcers On PPI H/H remains stable GI evaluation if Hb drops again (7) Hypertension Continue amlodipine, coreg, clonidine and hydralazine Monitor BP (8) DVT prophylaxis Current Visit: Yes Status: Acute Plan to address problem: SCD to bilateral lower extremities while in bed Heparin (9) Advance care planning Current Visit: Yes Status: Acute Plan to address problem: Disease education conducted, prognosis discussed, +30 minutes. Patient is full code. History Interval history: See assessment and plan Hospitalist Physical - Constitutional Vitals: Temp Pulse Resp BP Pulse Ox 98.7 F 67 14 149/58 98 06/07/20 12:00 06/07/20 14:00 06/07/20 14:00 06/07/20 14:00 06/07/20 14:00 General appearance: Present: no acute distress, obese, other (intubated on the vent) - EENT Eyes: Present: PERRL - Respiratory Respiratory: bilateral: diminished - Cardiovascular Heart Sounds: Present: S1 & S2 - Extremities Extremities: No edema - Abdominal General gastrointestinal: soft, non-tender, non-distended, normal bowel sounds - Neurologic Neurologic: other (Sedated and intubated) Results - Labs CBC & Chem 7: 06/07/20 04:00 06/07/20 04:00 Labs: Laboratory Last Values WBC 10.9 K/mm3 (4.5-11.0) 06/07/20 04:00 RBC 2.91 M/mm3 (3.65-5.03) L 06/07/20 04:00 Hgb 8.4 gm/dl (10.1-14.3) L 06/07/20 04:00 Hct 25.0 % (30.3-42.9) L 06/07/20 04:00 MCV 86 fl (79-97) 06/07/20 04:00 MCH 29 pg (28-32) 06/07/20 04:00 MCHC 33 % (30-34) 06/07/20 04:00 RDW 16.1 % (13.2-15.2) H 06/07/20 04:00 Plt Count 190 K/mm3 (140-440) 06/07/20 04:00 Lymph % (Auto) 5.7 % (13.4-35.0) L 06/07/20 04:00 Yancey % (Auto) 10.5 % (0.0-7.3) H 06/07/20 04:00 Eos % (Auto) 0.1 % (0.0-4.3) 06/07/20 04:00 Baso % (Auto) 0.1 % (0.0-1.8) 06/07/20 04:00 Lymph # 0.6 K/mm3 (1.2-5.4) L 06/07/20 04:00 Yancey # 1.1 K/mm3 (0.0-0.8) H 06/07/20 04:00 Eos # 0.0 K/mm3 (0.0-0.4) 06/07/20 04:00 Baso # 0.0 K/mm3 (0.0-0.1) 06/07/20 04:00 Seg Neutrophils % 83.6 % (40.0-70.0) H 06/07/20 04:00 Seg Neutrophils # 9.1 K/mm3 (1.8-7.7) H 06/07/20 04:00 PT 14.2 Sec. (12.2-14.9) 05/29/20 15:10 INR 1.08 (0.87-1.13) 05/29/20 15:10 APTT 27.2 Sec. (24.2-36.6) 05/29/20 15:10 D-Dimer 414.52 ng/mlDDU (0-234) H 06/04/20 04:19 Heparin Anti-Xa Level 0.26 U.I./ml (0.3-0.7) L 06/07/20 01:49 ABG pH 7.317 pH Units (7.350-7.450) L 06/07/20 04:54 ABG pCO2 41.9 mm Hg 06/07/20 04:54 ABG pO2 71.4 mm Hg (80.0-90.0) L 06/07/20 04:54 ABG HCO3 20.9 mmol/L (20.0-26.0) 06/07/20 04:54 ABG O2 Saturation 94.3 % (95.0-99.0) L 06/07/20 04:54 ABG O2 Content 9.3 (0.0-44) 06/07/20 04:54 ABG Base Excess -4.8 mmol/L (-2.0-3.0) L 06/07/20 04:54 ABG Hemoglobin 7.1 gm/dl (12.0-16.0) L 06/07/20 04:54 ABG Carboxyhemoglobin 1.7 % (0.0-5.0) 06/07/20 04:54 ABG Methemoglobin 0.6 % (0.0-1.5) 06/07/20 04:54 VBG pH 7.152 (7.320-7.420) L* 05/28/20 13:47 Oxyhemoglobin 92.2 % (95.0-99.0) L 06/07/20 04:54 FiO2 25 % 06/07/20 04:54 Sodium 133 mmol/L (137-145) L 06/07/20 04:00 Potassium 4.7 mmol/L (3.6-5.0) 06/07/20 04:00 Chloride 99.8 mmol/L (98-107) 06/07/20 04:00 Carbon Dioxide 18 mmol/L (22-30) L 06/07/20 04:00 Anion Gap 20 mmol/L 06/07/20 04:00 BUN 100 mg/dL (7-17) H 06/07/20 04:00 Creatinine 2.5 mg/dL (0.6-1.2) H 06/07/20 04:00 Estimated GFR 20 ml/min 06/07/20 04:00 BUN/Creatinine Ratio 40 % 06/07/20 04:00 Glucose 158 mg/dL (65-100) H 06/07/20 04:00 POC Glucose 168 (70-105) H 06/07/20 05:51 Lactic Acid 1.90 mmol/L (0.7-2.0) 05/28/20 14:46 Calcium 7.6 mg/dL (8.4-10.2) L 06/07/20 04:00 Ferritin 100.7 ng/mL (10.0-200.0) 06/04/20 04:19 Total Bilirubin < 0.20 mg/dL (0.1-1.2) 06/07/20 04:00 AST 9 units/L (5-40) 06/07/20 04:00 ALT 11 units/L (7-56) 06/07/20 04:00 Alkaline Phosphatase 65 units/L (35-129) 06/07/20 04:00 Lactate Dehydrogenase 271 units/L (91-180) H 06/04/20 04:19 Total Creatine Kinase 301 units/L (30-135) H 05/28/20 13:47 CK-MB (CK-2) 4.3 ng/mL (0.0-4.0) H 05/28/20 13:47 CK-MB (CK-2) Rel Index 1.4 (0-4) 05/28/20 13:47 C-Reactive Protein 2.20 mg/dL (0.00-1.30) H 06/04/20 04:19 Total Protein 4.7 g/dL (6.3-8.2) L 06/07/20 04:00 Albumin 2.0 g/dL (3.9-5) L 06/07/20 04:00 Albumin/Globulin Ratio 0.7 % 06/07/20 04:00 Procalcitonin 0.17 ng/mL (<0.15) 06/04/20 04:19 Urine Color Yellow (Yellow) 06/06/20 04:00 Urine Turbidity Cloudy (Clear) 06/06/20 04:00 Urine pH 5.0 (5.0-7.0) 06/06/20 04:00 Ur Specific Newell 1.012 (1.003-1.030) 06/06/20 04:00 Urine Protein 100 mg/dl mg/dL (Negative) 06/06/20 04:00 Urine Glucose (UA) 50 mg/dL (Negative) 06/06/20 04:00 Urine Ketones Neg mg/dL (Negative) 06/06/20 04:00 Urine Blood Sm (Negative) 06/06/20 04:00 Urine Nitrite Neg (Negative) 06/06/20 04:00 Urine Bilirubin Neg (Negative) 06/06/20 04:00 Urine Urobilinogen < 2.0 mg/dL (<2.0) 06/06/20 04:00 Ur Leukocyte Esterase Neg (Negative) 06/06/20 04:00 Urine WBC (Auto) 15.0 /HPF (0.0-6.0) H 06/06/20 04:00 Urine RBC (Auto) 23.0 /HPF (0.0-6.0) 06/06/20 04:00 U Epithel Cells (Auto) 8.0 /HPF (0-13.0) 06/06/20 04:00 Urine Bacteria (Auto) 2+ /HPF (Negative) 06/06/20 04:00 Amorphous Crystals 1+ 06/06/20 04:00 Hyaline Casts 16 /LPF 06/06/20 04:00 Urine Mucus 2+ /HPF 06/06/20 04:00 Urine Yeast (Budding) 2+ /HPF 06/03/20 Unknown Urine Creatinine 82.2 mg/dL (0.1-20.0) H 06/06/20 04:00 Urine Sodium 20 mmol/L 06/06/20 04:00 Urine Total Protein 196 mg/dL (5-11.8) H 06/06/20 04:00 Coronavirus (PCR) Positive (Negative) A 05/28/20 Unknown Microbiology: Microbiology 06/03/20 Unknown Urine,Clean Catch Urine Culture - Final NO GROWTH AFTER 48 HOURS - Diagnostic Impressions Diagnostic Impressions: Echocardiogram Limited Views 05/29/20 13:52 Transthoracic Echocardiogram Indication: Pulm Embolus BP: 169/76 HR: 85 Conclusions *Limited study for RV size post cardiopulmonar arrest. *RV is only slightly dilated, no significant difference from prior echo 05/13/2020. *Global left ventricular systolic function is at the lower limits of normal. *The estimated ejection fraction is 45-50%. *Mild to moderate concentric left ventricular hypertrophy is observed. *The left and right atria are both mild to moderately dilated. Findings Left Ventricle: The left ventricular chamber size is mildly dilated. Mild to moderate concentric left ventricular hypertrophy is observed. Global left ventricular systolic function is at the lower limits of normal. The estimated ejection fraction is 45-50%. Left Atrium: The left atrium is mild to moderately dilated. Right Ventricle: The right ventricle is slightly dilated. Right Atrium: The right atrium is mild to moderately dilated. Aortic Valve: The aortic valve leaflets are moderately thickened. Mitral Valve: There is mitral annular calcification. The mitral valve leaflets are moderately thickened. Tricuspid Valve: The tricuspid valve leaflets are mildly thickened. Pericardium: A trivial pericardial effusion is visualized. NDUM: 05/29/20 1808 Amended Report Transthoracic Echocardiogram Indication: Pulm Embolus BP: 169/76 HR: 85 Conclusions *Limited study for RV size post cardiopulmonary arrest. *RV is only slightly dilated, no significant difference from prior echo 05/13/2020. *Global left ventricular systolic function is at the lower limits of normal. *The estimated ejection fraction is 45-50%. *Mild to moderate concentric left ventricular hypertrophy is observed. *The left and right atria are both mild to moderately dilated. Findings Left Ventricle: The left ventricular chamber size is mildly dilated. Mild to moderate concentric left ventricular hypertrophy is observed. Global left ventricular systolic function is at the lower limits of normal. The estimated ejection fraction is 45-50%. Left Atrium: The left atrium is mild to moderately dilated. Right Ventricle: The right ventricle is slightly dilated. Right Atrium: The right atrium is mild to moderately dilated. Aortic Valve: The aortic valve leaflets are moderately thickened. Mitral Valve: There is mitral annular calcification. The mitral valve leaflets are moderately thickened. Tricuspid Valve: The tricuspid valve leaflets are mildly thickened. Pericardium: A trivial pericardial effusion is visualized. Helm/IV: Voiding Method Indwelling Catheter IV Catheter Type [Left INT / Saline Lock Antecubital] IV Catheter Type [Right Peripheral IV Forearm] IV Catheter Type [Left Leg] Intra-osseous Active Medications - Current Medications Current Medications: Generic Name Dose Route Start Last Admin Trade Name Freq PRN Reason Stop Dose Admin Albumin Human 12.5 gm 06/06/20 10:00 06/07/20 10:09 Alburx 25% (Albumin) IV 06/07/20 22:01 12.5 gm Q12HR NELSON Administration Amlodipine Besylate 10 mg 06/02/20 11:00 06/07/20 10:08 Amlodipine PO 10 mg DAILY NELSON Administration Lipase/Protease/Amylase 1 each 05/29/20 13:[address] 10,500 Unit FEEDTUBE PRN PRN For Clogged Feeding Tube Carvedilol 12.5 mg 06/03/20 10:00 06/07/20 10:07 Coreg PO 12.5 mg BID NELSON Administration Clonidine HCl 0.1 mg 06/04/20 06:00 06/07/20 13:00 Catapres PO 0.1 mg Q8HR NELSON Administration Clonidine HCl 0.2 mg 06/04/20 06:00 06/07/20 13:00 Catapres PO 0.2 mg Q8HR NELSON Administration Fentanyl 50 mcg 05/29/20 14:21 Sublimaze IV Q10MIN PRN ANALGESIA Glycopyrrolate 1 mg 06/05/20 15:00 06/07/20 13:01 Robinul PO 1 mg TID NELSON Administration Hydralazine HCl 50 mg 06/03/20 09:00 06/07/20 12:59 Apresoline PO 50 mg Q8HR NELSON Administration Hydrophilic Ointment 1 applic 05/28/20 13:49 Vaseline Lip Therapy TP Q2HR PRN Dry Lips Heparin Sodium/Sodium Chloride 25,000 unit in 500 mls @ 30 mls/hr 05/29/20 15:00 06/07/20 06:14 Heparin/ 0.45% Nacl-25,000 Unit/500 Ml IV 1,350 units/hr TITR NELSON 27 mls/hr Titration Protocol 1,500 UNITS/HR Fentanyl Citrate 2,000 mcg in 100 mls @ 6.095 mls/hr 05/29/20 15:00 06/07/20 08:30 Fentanyl Drip Premix IV 0 mcg/kg/hr TITR NELSON 0 mls/hr Titration Protocol 1 MCG/KG/HR Nicardipine HCl 50 mg/ Sodium 250 mls @ 25 mls/hr 06/02/20 09:00 06/02/20 11:23 Chloride IV 0 mg/hr TITR NELSON 0 mls/hr Titration Protocol 5 MG/HR Insulin Human Lispro 0 unit 05/29/20 18:00 06/07/20 12:59 Humalog SUB-Q 6 unit Q6H NELSON Administration Protocol Labetalol HCl 20 mg 06/03/20 09:00 Labetalol IV Q4H PRN HYPERTENSION Lansoprazole 30 mg 06/05/20 22:00 06/07/20 10:08 Prevacid Solutab FEEDTUBE 30 mg BID NELSON Administration Levetiracetam 500 mg 05/29/20 22:00 06/07/20 10:08 Keppra PO 500 mg BID NELSON Administration Multi-Ingred Cream/Lotion/Oil/Oint 1 applic 05/28/20 13:49 Artificial Tears Ophth Oint OU Q4HR PRN Dry Eye(s) Ondansetron HCl 4 mg 06/02/20 09:00 Zofran IV Q8H PRN Nausea And Vomiting Quetiapine Fumarate 200 mg 06/03/20 10:00 06/07/20 10:08 Seroquel PO 200 mg BID NELSON Administration Scopolamine 1 each 06/05/20 14:00 06/05/20 14:15 Transderm-Scop TD 1 each Q3D NELSON Administration Senna 17.6 mg 06/03/20 10:00 06/07/20 10:11 Senokot FEEDTUBE 17.6 mg BID NELSON Administration Simple Syrup 15 ml 05/29/20 13:39 Simple Syrup FEEDTUBE PRN PRN Hypoglycemia Simple Syrup 30 ml 05/29/20 13:39 Simple Syrup FEEDTUBE PRN PRN Hypoglycemia Sodium Bicarbonate 325 mg 05/29/20 13:39 Sodium Bicarbonate FEEDTUBE PRN PRN For Clogged Feeding Tube Sodium Bicarbonate 650 mg 06/06/20 10:00 06/07/20 10:08 Sodium Bicarbonate PO 650 mg BID NELSON Administration Sodium Chloride 10 ml 05/28/20 22:00 06/07/20 10:01 Sodium Chloride Flush Syringe 10 Ml IV 10 ml BID NELSON Administration Sodium Chloride 10 ml 05/28/20 19:08 Sodium Chloride Flush Syringe 10 Ml IV PRN PRN LINE FLUSH Nutrition/Malnutrition Assess - Dietary Evaluation Nutrition/Malnutrition Findings: Nutrition Notes Start: 05/29/20 11:45 Freq: Status: Active Protocol: Document 06/01/20 09:57 MINERVABRITANY (Rec: 06/01/20 10:02 JOSEF [email or web address] [email or web address]) Nutrition Notes Initial or Follow up Reassessment Current Diagnosis Heart Failure,Respiratory Failure Other Pertinent Diagnosis s/p Cardiac Arrest, Metabolic Encephalopathy, COVID-19 (+) Current Diet TF - Nepro at 40ml/hr Labs/Tests Reviewed Pertinent Medications Lasix Height 5 ft 6 in Weight 123 kg Hawkins Body Weight (kg) 59.09 BMI 43.7 Weight Status Morbidly Obese Subjective/Other Information Per RN, pt tolerating TF at goal rate. Pt remains on vent support. Burn Absent Trauma Absent #1 Nutrition Diagnosis Inadequate oral intake Diagnosis Progress(for reassessment Continues documentation) Is patient on ventilator? Yes Is Patient Ambulatory and/or Out of Bed No REE-([facility]-confined to bed) 0026.394 Additional Notes Pro needs up to 2.5g/kg IBW: up to 148g/day Fluid needs 1ml/kcal Nutrition Intervention Nutrition Support: Continue Nepro at 40ml/hr Flush with 175ml q4h Kcal 1,728 Protein (gm) 78 Fluid (mL) 698 Goal #1 TF tolerance Goal #2 TF to meet at least 75% energy and pro needs Follow-Up By: 06/08/20 Additional Comments F/U: stable TF, vent status, wt
--- NOTE | 2020-06-07 14:43 | XRay Report ---
CHEST 1 VIEW INDICATION / CLINICAL INFORMATION: Pneumonia. COMPARISON: 06/04/2020. FINDINGS: SUPPORT DEVICES: Medical devices are in stable position. HEART / MEDIASTINUM: Stable. LUNGS / PLEURA: Minimal interval improvement of previously noted bilateral pulmonary opacities and pl eural effusions. No pneumothorax. ADDITIONAL FINDINGS: No significant additional findings. IMPRESSION: 1. Minimal interval improvement of previously noted bilateral pleural effusions and associated lower lobe opacities. 2. Medical devices are in stable position. Signer Name: Enzo Dominguez MD Signed: 06/07/2020 2:39 PM Workstation Name: [id number]
[2020-06-08] MEDS: SODIUM BICARBONATE 325 MG TAB FEEDTUBE PRN (00:07)
[2020-06-08] MEDS: SENNOSIDES ORAL LIQD 8.8 MG/5 ML ORAL LIQD FEEDTUBE SCH ×3 (00:08→21:54)
[2020-06-08] MEDS: QUEtiapine 200 MG TAB PO SCH ×3 (00:08→21:57)
[2020-06-08] MEDS: SODIUM BICARBONATE 650 MG TAB PO SCH ×3 (00:09→21:57)
[2020-06-08 05:19] LABS: Hematocrit 26.5 % (30.3-42.9); Hemoglobin 8.6 gm/dl (10.1-14.3); Mean Corpuscular HGB Conc 32 % (30-34); Mean Corpuscular Volume 86 fl (79-97); Platelet Count 188 K/mm3 (140-440); Red Blood Count 3.07 M/mm3 (3.65-5.03); Red Cell Distribution Width 16.3 % (13.2-15.2)
[2020-06-08 05:41] LABS: Albumin 2.1 g/dL (3.9-5); Calcium 7.6 mg/dL (8.4-10.2)
[2020-06-08] MEDS: cloNIDine 0.2 MG TAB PO SCH ×3 (06:22→21:55)
[2020-06-08] MEDS: cloNIDine 0.1 MG TAB PO SCH ×3 (06:24→21:55)
[2020-06-08] MEDS: hydrALAZINE 25 MG TAB PO SCH ×3 (06:24→21:56)
[2020-06-08] MEDS: INSULIN LISPRO 100 UNIT/ML VIAL 3 mL SUB-Q SCH ×3 (06:25→18:03)
[2020-06-08] MEDS: HEPARIN/ 0.45% NACL DRIP 25,000 UNIT/500 ML BAG IV SCH ×2 (06:25→23:59)
[2020-06-08 07:22] LABS: Anisocytosis Few; Basophils % (Manual) 0 % (0.0-1.8); Eosinophils % (Manual) 0 % (0.0-4.3); Platelet Estimate Consistent w Auto; Total Cells Counted 100
[2020-06-08] MEDS: GLYCOPYRROLATE 1 MG TAB PO SCH ×3 (08:39→20:42)
[2020-06-08] MEDS: levETIRAcetam 500 MG TAB PO SCH ×2 (09:01→21:55)
[2020-06-08] MEDS: amLODIPine 10 MG TAB PO SCH (09:01)
[2020-06-08] MEDS: carvediloL 12.5 MG TAB PO SCH ×2 (09:01→21:57)
[2020-06-08] MEDS: SCOPOLAMINE TRANSDERMAL PATCH 72 HR TD SCH (09:02)
[2020-06-08] MEDS: LANSOPRAZOLE 30 MG SOLUTAB FEEDTUBE SCH ×2 (09:02→21:54)
[2020-06-08] MEDS: fentaNYL 100 MCG/2 ML INJ IV PRN ×2 (12:21→23:51)
--- NOTE | 2020-06-08 13:02 | Progress Note ---
Assessment and Plan Acute hypoxemic respiratory failure orally intubated on MVS Severe COVID infection Multifocal pneumonia Morbid obesity Acute toxic metabolic encephalopathy AVANI secondary to COVID/vasomotor nephropathy Bilateral pulmonary edema. Bilateral pleural effusions. History of congestive heart failure. Morbid obesity. History of pulmonary hypertension. History of hypertension. Diabetes. Obesity hypoventilation syndrome. Elevated serum inflammatory markers to include D-dimers and LDH levels. AVANI Metabolic acidosis. Oropharyngeal dysphagia. -Gentle IVF while monitoring respiratory status -SAT and SBT today as tolerated -CXR, ABG as clinically indicated -Continue tube feedings and monitor -Stop Fentanyl infusion, use intermittent dosing - VAP bundle addressed -Aspiration precautions, HOB >40 - continue lung protective strategies-ARDS. net -Permissive hypercapnic is acceptable - continue bronchodilators with pulmonary hygiene per RT - wean per pulmonary driven protocols otherwise - continue to avoid benzodiazepines, reduce the possibility of delirium - prn analgesia per CPOT score - sedation prn for target RASS 0 to -1 - Continue to wean supplemental oxygen for target O2 sats > 92% - conservative fluid management measures as tolerated by hemodynamics and renal function - Bronchodilators with pulmonary hygiene per RT -Monitor off antibiotics - Accuchecks with glycemic control per SSI (While critically ill target blood glucose of 140-180 mg/dL; avoid hypoglycemia) - Maintenance of sleep-wake cycle, avoid delirium - Avoid nephrotoxins, closely monitor renal function, dose all medications for renal function - Aspiration precautions, HOB >40 - Stress ulcer prophylaxis -Famotidine - VTE prophylaxis on adjust based on D-dimer levels - Mobility protocol, off loading and skin assessment for pressure ulcer prevention - Monitor hemodynamics closely - Supportive transfusions as indicated to keep HgB >7g/dL COVID SPECIFIC INTERVENTIONS -Airborne, contact isolation for COVID per facility protocols - s/p Remdesivir -IV steroids-Dexamethasone -Trend d-dimer,and other inflammatory markers per facility protocol -Convalescent plasma therapy per facility protocol -Continue all supportive care Discussed with the ICU team-RTRN, Life threatening condition- COVID 19 ARDS acute hypoxemic respiratory failure on MVS Mortality/Morbidity- High Complexity of medical decision making- High CONDITION: CRITICAL PROGNOSIS: GUARDED CODE STATUS: FULL CODE The high probability of a clinically significant, sudden or life-threatening deterioration of the [respiratory & neurology, renal ] system(s) required my full and direct attention, intervention and personal management. The aggregate critical care time was [32] minutes without overlap. Time includes spent on; [x] Data Review and interpretation [x] Patient assessment and monitoring of vital signs [x] Documentation [x] Medication orders and management Subjective Date of service: 06/08/20 Principal diagnosis: Ac hypoxemic resp failure; COVID-19; pneumonia; CHF; Pulm HTN; OHS; DM II Interval history: Patient is seen today for: Ac hypoxemic resp failure; Coronavirus-19 infection; pneumonia; Pulmonary edema; Bilateral pleural effusions; CHF; Morbid obesity; pulmonary hypertension; OHS; DM II Seen and examined at bedside; 24hour events reviewed; nursing and respiratory care staff consulted; no adverse overnight events reported to me; resting peacefully in bed; remains on MVS; no high grade fevers, no further episodes of vomiting, tube feedings at goal and is being tolerated On Fentanyl at 1mcg/kg , continuous infusion Off all antibiotics, tolerating PSV but PSV is at 12 Objective Vital Signs - 12hr 06/08/20 06/08/20 06/08/20 01:11 01:21 01:30 Temperature Pulse Rate 65 64 63 Pulse Rate [ From Monitor] Respiratory 13 14 15 Rate Blood Pressure 158/60 144/56 143/56 O2 Sat by Pulse 98 98 99 Oximetry 06/08/20 06/08/20 06/08/20 01:41 01:51 02:00 Temperature Pulse Rate 63 63 63 Pulse Rate [ From Monitor] Respiratory 14 14 15 Rate Blood Pressure 144/56 143/55 141/47 O2 Sat by Pulse 98 98 98 Oximetry 06/08/20 06/08/20 06/08/20 02:11 02:21 02:30 Temperature Pulse Rate 68 64 64 Pulse Rate [ From Monitor] Respiratory 14 12 14 Rate Blood Pressure 143/56 153/61 149/58 O2 Sat by Pulse 98 99 98 Oximetry 06/08/20 06/08/20 06/08/20 02:41 02:51 03:00 Temperature Pulse Rate 65 66 67 Pulse Rate [ From Monitor] Respiratory 13 14 14 Rate Blood Pressure 141/47 152/56 153/61 O2 Sat by Pulse 98 98 98 Oximetry 06/08/20 06/08/20 06/08/20 03:11 03:21 03:30 Temperature Pulse Rate 72 90 78 Pulse Rate [ From Monitor] Respiratory 11 L 16 12 Rate Blood Pressure 152/56 169/75 166/62 O2 Sat by Pulse 99 98 98 Oximetry 06/08/20 06/08/20 06/08/20 03:31 03:41 03:51 Temperature 99 F Pulse Rate 76 75 Pulse Rate [ From Monitor] Respiratory 14 14 Rate Blood Pressure 166/62 150/56 O2 Sat by Pulse 98 97 Oximetry 06/08/20 06/08/20 06/08/20 04:00 04:11 04:21 Temperature Pulse Rate 72 73 74 Pulse Rate [ 65 From Monitor] Respiratory 13 14 14 Rate Blood Pressure 140/51 140/51 146/56 O2 Sat by Pulse 97 98 98 Oximetry 06/08/20 06/08/20 06/08/20 04:30 04:40 04:41 Temperature Pulse Rate 77 78 78 Pulse Rate [ From Monitor] Respiratory 13 12 Rate Blood Pressure 155/58 155/58 155/58 O2 Sat by Pulse 98 98 98 Oximetry 06/08/20 06/08/20 06/08/20 04:50 05:00 05:11 Temperature Pulse Rate 79 76 72 Pulse Rate [ From Monitor] Respiratory 10 L 10 L 13 Rate Blood Pressure 156/59 156/62 156/62 O2 Sat by Pulse 98 99 99 Oximetry 06/08/20 06/08/20 06/08/20 05:21 05:30 05:41 Temperature Pulse Rate 72 70 68 Pulse Rate [ From Monitor] Respiratory 10 L 12 13 Rate Blood Pressure 156/61 162/62 162/62 O2 Sat by Pulse 99 98 99 Oximetry 06/08/20 06/08/20 06/08/20 05:51 06:00 06:11 Temperature Pulse Rate 66 65 65 Pulse Rate [ From Monitor] Respiratory 13 12 13 Rate Blood Pressure 148/58 143/55 143/55 O2 Sat by Pulse 99 98 98 Oximetry 06/08/20 06/08/20 06/08/20 06:21 06:22 06:24 Temperature Pulse Rate 64 67 65 Pulse Rate [ From Monitor] Respiratory 12 Rate Blood Pressure 143/55 147/59 147/59 O2 Sat by Pulse 98 Oximetry 06/08/20 06/08/20 06/08/20 06:30 06:41 06:51 Temperature Pulse Rate 69 77 70 Pulse Rate [ From Monitor] Respiratory 12 11 L 12 Rate Blood Pressure 155/60 155/60 147/59 O2 Sat by Pulse 99 99 99 Oximetry 08/06/08/20 06/08/20 07:01 07:11 07:21 Temperature Pulse Rate 68 68 66 Pulse Rate [ From Monitor] Respiratory 11 L 10 L 10 L Rate Blood Pressure 155/57 155/57 155/60 O2 Sat by Pulse 99 99 98 Oximetry 06/08/20 06/08/20 06/08/20 07:30 07:41 07:51 Temperature Pulse Rate 65 69 66 Pulse Rate [ From Monitor] Respiratory 14 11 L 11 L Rate Blood Pressure 146/56 146/56 154/63 O2 Sat by Pulse 99 99 99 Oximetry 06/08/20 06/08/20 06/08/20 07:57 08:00 08:11 Temperature 98.5 F Pulse Rate 70 70 67 Pulse Rate [ 68 From Monitor] Respiratory 14 10 L Rate Blood Pressure 158/64 158/64 158/64 O2 Sat by Pulse 99 99 99 Oximetry 06/08/20 06/08/20 06/08/20 08:21 08:30 08:41 Temperature Pulse Rate 63 63 69 Pulse Rate [ From Monitor] Respiratory 12 12 11 L Rate Blood Pressure 158/64 151/59 151/59 O2 Sat by Pulse 99 99 99 Oximetry 06/08/20 06/08/20 06/08/20 08:51 09:00 09:01 Temperature Pulse Rate 68 67 66 Pulse Rate [ From Monitor] Respiratory 11 L 10 L Rate Blood Pressure 157/67 167/67 167/67 O2 Sat by Pulse 99 99 Oximetry 06/08/20 06/08/20 06/08/20 09:11 09:21 09:30 Temperature Pulse Rate 64 65 63 Pulse Rate [ From Monitor] Respiratory 11 L 13 13 Rate Blood Pressure 167/67 156/65 152/58 O2 Sat by Pulse 98 99 98 Oximetry 06/08/20 06/08/20 06/08/20 09:41 09:51 10:00 Temperature Pulse Rate 64 64 65 Pulse Rate [ From Monitor] Respiratory 10 L 12 11 L Rate Blood Pressure 152/58 151/61 152/60 O2 Sat by Pulse 98 98 99 Oximetry 06/08/20 06/08/20 06/08/20 10:11 10:21 10:30 Temperature Pulse Rate 63 61 61 Pulse Rate [ From Monitor] Respiratory 10 L 14 10 L Rate Blood Pressure 152/60 144/54 141/55 O2 Sat by Pulse 98 98 98 Oximetry 06/08/20 06/08/20 06/08/20 10:41 10:51 11:00 Temperature Pulse Rate 71 67 65 Pulse Rate [ From Monitor] Respiratory 10 L 10 L 10 L Rate Blood Pressure 141/55 132/63 145/58 O2 Sat by Pulse 99 98 98 Oximetry 06/08/20 06/08/20 06/08/20 11:11 11:21 11:30 Temperature Pulse Rate 64 64 64 Pulse Rate [ From Monitor] Respiratory 10 L 10 L 11 L Rate Blood Pressure 145/58 139/56 140/53 O2 Sat by Pulse 98 98 97 Oximetry 06/08/20 06/08/20 06/08/20 11:36 11:40 11:50 Temperature Pulse Rate 65 67 67 Pulse Rate [ From Monitor] Respiratory 10 L 12 10 L Rate Blood Pressure 140/53 140/53 146/58 O2 Sat by Pulse 97 98 97 Oximetry 06/08/20 12:00 Temperature 98.7 F Pulse Rate 84 Pulse Rate [ 91 H From Monitor] Respiratory 13 Rate Blood Pressure O2 Sat by Pulse 99 Oximetry Constitutional: no acute distress, alert, other Eyes: non-icteric ENT: oropharynx moist Neck: supple, no lymphadenopathy, no JVD, other (ETT 23 cm AYAN) Effort: mildly labored Ascultation: Bilateral: clear, diminished breath sounds, rhonchi Percussion: Bilateral: not dull Cardiovascular: regular rate and rhythm, other (S1,S2) Gastrointestinal: normoactive bowel sounds, soft, non-tender, non-distended Integumentary: normal Extremities: no cyanosis, no edema, pink and warm, pulses normal, no ischemia or petechiae Neurologic: non-focal exam (grossly), pupils equal and round, other (awake, alert, tracking voice, ) Psychiatric: mood appropriate, anxious, other CBC and BMP: 06/12/20 02:46 06/12/20 02:46 ABG, PT/INR, D-dimer: ABG ABG pH 7.317 pH Units (7.350-7.450) L 06/07/20 04:54 ABG pCO2 41.9 mm Hg 06/07/20 04:54 ABG pO2 71.4 mm Hg (80.0-90.0) L 06/07/20 04:54 ABG O2 Saturation 94.3 % (95.0-99.0) L 06/07/20 04:54 PT/INR, D-dimer PT 14.2 Sec. (12.2-14.9) 05/29/20 15:10 INR 1.08 (0.87-1.13) 05/29/20 15:10 D-Dimer 414.52 ng/mlDDU (0-234) H 06/04/20 04:19 Abnormal lab findings: Abnormal Labs 05/28/20 05/28/20 05/28/20 13:29 13:47 13:47 WBC RBC Hgb Hct RDW 15.3 H Lymph % (Auto) [place] % (Auto) Lymph # [place] # Seg Neutrophils % Seg Neuts % (Manual) Lymphocytes % (Manual) Seg Neutrophils # Seg Neutrophils # Man Lymphocytes # (Manual) Monocytes # (Manual) D-Dimer Heparin Anti-Xa Level ABG pH ABG pO2 ABG HCO3 ABG O2 Saturation ABG Base Excess ABG Hemoglobin VBG pH Oxyhemoglobin Sodium Potassium 6.6 H* Chloride 109.2 H Carbon Dioxide 17 L BUN 29 H Creatinine 1.3 H Glucose 265 H POC Glucose 248 H Lactic Acid Calcium 8.1 L AST 63 H Lactate Dehydrogenase Total Creatine Kinase 301 H CK-MB (CK-2) 4.3 H C-Reactive Protein Total Protein 5.4 L Albumin 2.6 L Urine WBC (Auto) Urine Creatinine Urine Total Protein Coronavirus (PCR) 05/28/20 05/28/20 05/28/20 13:47 13:47 14:46 WBC RBC Hgb Hct RDW Lymph % (Auto) [place] % (Auto) Lymph # [place] # Seg Neutrophils % Seg Neuts % (Manual) Lymphocytes % (Manual) Seg Neutrophils # Seg Neutrophils # Man Lymphocytes # (Manual) Monocytes # (Manual) D-Dimer Heparin Anti-Xa Level ABG pH ABG pO2 ABG HCO3 ABG O2 Saturation ABG Base Excess ABG Hemoglobin VBG pH 7.152 L* Oxyhemoglobin Sodium Potassium 7.2 H* Chloride Carbon Dioxide BUN Creatinine Glucose POC Glucose Lactic Acid 3.40 H* Calcium AST Lactate Dehydrogenase Total Creatine Kinase CK-MB (CK-2) C-Reactive Protein Total Protein Albumin Urine WBC (Auto) Urine Creatinine Urine Total Protein Coronavirus (PCR) 05/28/20 05/28/20 05/28/20 15:33 15:33 15:51 WBC RBC Hgb Hct RDW Lymph % (Auto) [place] % (Auto) Lymph # [place] # Seg Neutrophils % Seg Neuts % (Manual) Lymphocytes % (Manual) Seg Neutrophils # Seg Neutrophils # Man Lymphocytes # (Manual) Monocytes # (Manual) D-Dimer 8780.43 H Heparin Anti-Xa Level ABG pH 7.284 L ABG pO2 273.0 H ABG HCO3 ABG O2 Saturation 99.4 H ABG Base Excess -6.1 L ABG Hemoglobin 17.2 H VBG pH Oxyhemoglobin Sodium Potassium Chloride Carbon Dioxide BUN Creatinine Glucose 152 H POC Glucose Lactic Acid Calcium AST Lactate Dehydrogenase 365 H Total Creatine Kinase CK-MB (CK-2) C-Reactive Protein Total Protein Albumin Urine WBC (Auto) Urine Creatinine Urine Total Protein Coronavirus (PCR) 05/28/20 05/28/20 05/28/20 16:30 20:41 23:20 WBC RBC Hgb Hct RDW Lymph % (Auto) [place] % (Auto) Lymph # [place] # Seg Neutrophils % Seg Neuts % (Manual) Lymphocytes % (Manual) Seg Neutrophils # Seg Neutrophils # Man Lymphocytes # (Manual) Monocytes # (Manual) D-Dimer Heparin Anti-Xa Level ABG pH ABG pO2 ABG HCO3 ABG O2 Saturation ABG Base Excess ABG Hemoglobin VBG pH Oxyhemoglobin Sodium Potassium Chloride Carbon Dioxide BUN Creatinine Glucose POC Glucose 225 H 224 H Lactic Acid Calcium AST Lactate Dehydrogenase Total Creatine Kinase CK-MB (CK-2) C-Reactive Protein Total Protein Albumin Urine WBC (Auto) 17.0 H Urine Creatinine Urine Total Protein Coronavirus (PCR) 05/28/20 05/29/20 05/29/20 Unknown 04:35 04:43 WBC RBC 3.48 L Hgb 9.8 L Hct 29.4 L RDW 16.0 H Lymph % (Auto) 7.4 L [place] % (Auto) Lymph # 0.7 L [place] # Seg Neutrophils % 89.1 H Seg Neuts % (Manual) Lymphocytes % (Manual) Seg Neutrophils # 8.1 H Seg Neutrophils # Man Lymphocytes # (Manual) Monocytes # (Manual) D-Dimer Heparin Anti-Xa Level ABG pH ABG pO2 ABG HCO3 19.3 L ABG O2 Saturation ABG Base Excess -4.5 L ABG Hemoglobin 9.7 L VBG pH Oxyhemoglobin Sodium Potassium Chloride Carbon Dioxide BUN Creatinine Glucose POC Glucose Lactic Acid Calcium AST Lactate Dehydrogenase Total Creatine Kinase CK-MB (CK-2) C-Reactive Protein Total Protein Albumin Urine WBC (Auto) Urine Creatinine Urine Total Protein Coronavirus (PCR) Positive A 05/29/20 05/29/20 05/29/20 04:43 15:10 17:17 WBC RBC Hgb 9.3 L Hct 28.7 L RDW Lymph % (Auto) [place] % (Auto) Lymph # [place] # Seg Neutrophils % Seg Neuts % (Manual) Lymphocytes % (Manual) Seg Neutrophils # Seg Neutrophils # Man Lymphocytes # (Manual) Monocytes # (Manual) D-Dimer Heparin Anti-Xa Level ABG pH ABG pO2 ABG HCO3 ABG O2 Saturation ABG Base Excess ABG Hemoglobin VBG pH Oxyhemoglobin Sodium Potassium Chloride 110.2 H Carbon Dioxide 18 L BUN 32 H Creatinine 1.4 H Glucose 180 H POC Glucose 147 H Lactic Acid Calcium AST Lactate Dehydrogenase Total Creatine Kinase CK-MB (CK-2) C-Reactive Protein Total Protein Albumin Urine WBC (Auto) Urine Creatinine Urine Total Protein Coronavirus (PCR) 05/30/20 05/30/20 05/30/20 00:08 00:12 04:15 WBC RBC Hgb Hct RDW Lymph % (Auto) [place] % (Auto) Lymph # [place] # Seg Neutrophils % Seg Neuts % (Manual) Lymphocytes % (Manual) Seg Neutrophils # Seg Neutrophils # Man Lymphocytes # (Manual) Monocytes # (Manual) D-Dimer Heparin Anti-Xa Level 0.71 H ABG pH 7.460 H ABG pO2 106.0 H ABG HCO3 18.9 L ABG O2 Saturation ABG Base Excess -4.4 L ABG Hemoglobin 6.8 L VBG pH Oxyhemoglobin Sodium Potassium Chloride Carbon Dioxide BUN Creatinine Glucose POC Glucose 195 H Lactic Acid Calcium AST Lactate Dehydrogenase Total Creatine Kinase CK-MB (CK-2) C-Reactive Protein Total Protein Albumin Urine WBC (Auto) Urine Creatinine Urine Total Protein Coronavirus (PCR) 05/30/20 05/30/20 05/30/20 06:07 08:37 12:33 WBC RBC Hgb Hct RDW Lymph % (Auto) [place] % (Auto) Lymph # [place] # Seg Neutrophils % Seg Neuts % (Manual) Lymphocytes % (Manual) Seg Neutrophils # Seg Neutrophils # Man Lymphocytes # (Manual) Monocytes # (Manual) D-Dimer Heparin Anti-Xa Level 0.85 H ABG pH ABG pO2 ABG HCO3 ABG O2 Saturation ABG Base Excess ABG Hemoglobin VBG pH Oxyhemoglobin Sodium Potassium Chloride Carbon Dioxide BUN Creatinine Glucose POC Glucose 182 H 187 H Lactic Acid Calcium AST Lactate Dehydrogenase Total Creatine Kinase CK-MB (CK-2) C-Reactive Protein Total Protein Albumin Urine WBC (Auto) Urine Creatinine Urine Total Protein Coronavirus (PCR) 05/30/20 05/30/20 05/30/20 15:58 17:57 23:36 WBC RBC Hgb Hct RDW Lymph % (Auto) [place] % (Auto) Lymph # [place] # Seg Neutrophils % Seg Neuts % (Manual) Lymphocytes % (Manual) Seg Neutrophils # Seg Neutrophils # Man Lymphocytes # (Manual) Monocytes # (Manual) D-Dimer Heparin Anti-Xa Level 1.03 H ABG pH ABG pO2 ABG HCO3 ABG O2 Saturation ABG Base Excess ABG Hemoglobin VBG pH Oxyhemoglobin Sodium Potassium Chloride Carbon Dioxide BUN Creatinine Glucose POC Glucose 208 H 185 H Lactic Acid Calcium AST Lactate Dehydrogenase Total Creatine Kinase CK-MB (CK-2) C-Reactive Protein Total Protein Albumin Urine WBC (Auto) Urine Creatinine Urine Total Protein Coronavirus (PCR) 05/31/20 05/31/20 05/31/20 02:16 03:55 06:16 WBC RBC Hgb 9.2 L Hct 27.5 L RDW Lymph % (Auto) [place] % (Auto) Lymph # [place] # Seg Neutrophils % Seg Neuts % (Manual) Lymphocytes % (Manual) Seg Neutrophils # Seg Neutrophils # Man Lymphocytes # (Manual) Monocytes # (Manual) D-Dimer Heparin Anti-Xa Level ABG pH ABG pO2 94.7 H ABG HCO3 18.6 L ABG O2 Saturation ABG Base Excess -5.5 L ABG Hemoglobin 7.9 L VBG pH Oxyhemoglobin Sodium Potassium Chloride Carbon Dioxide BUN Creatinine Glucose POC Glucose 160 H Lactic Acid Calcium AST Lactate Dehydrogenase Total Creatine Kinase CK-MB (CK-2) C-Reactive Protein Total Protein Albumin Urine WBC (Auto) Urine Creatinine Urine Total Protein Coronavirus (PCR) 05/31/20 05/31/20 05/31/20 12:20 13:03 18:13 WBC RBC Hgb Hct RDW Lymph % (Auto) [place] % (Auto) Lymph # [place] # Seg Neutrophils % Seg Neuts % (Manual) Lymphocytes % (Manual) Seg Neutrophils # Seg Neutrophils # Man Lymphocytes # (Manual) Monocytes # (Manual) D-Dimer Heparin Anti-Xa Level ABG pH ABG pO2 ABG HCO3 ABG O2 Saturation ABG Base Excess ABG Hemoglobin VBG pH Oxyhemoglobin Sodium Potassium Chloride Carbon Dioxide 18 L BUN 48 H Creatinine 1.6 H Glucose 115 H POC Glucose 128 H 159 H Lactic Acid Calcium 8.3 L AST Lactate Dehydrogenase Total Creatine Kinase CK-MB (CK-2) C-Reactive Protein Total Protein 5.4 L Albumin 2.4 L Urine WBC (Auto) Urine Creatinine Urine Total Protein Coronavirus (PCR) 05/31/20 06/01/20 06/01/20 23:51 04:00 05:48 WBC RBC Hgb Hct RDW Lymph % (Auto) [place] % (Auto) Lymph # [place] # Seg Neutrophils % Seg Neuts % (Manual) Lymphocytes % (Manual) Seg Neutrophils # Seg Neutrophils # Man Lymphocytes # (Manual) Monocytes # (Manual) D-Dimer Heparin Anti-Xa Level ABG pH ABG pO2 109.8 H ABG HCO3 18.8 L ABG O2 Saturation ABG Base Excess -5.9 L ABG Hemoglobin 7.8 L VBG pH Oxyhemoglobin Sodium Potassium Chloride Carbon Dioxide BUN Creatinine Glucose POC Glucose 171 H 133 H Lactic Acid Calcium AST Lactate Dehydrogenase Total Creatine Kinase CK-MB (CK-2) C-Reactive Protein Total Protein Albumin Urine WBC (Auto) Urine Creatinine Urine Total Protein Coronavirus (PCR) 06/01/20 06/01/20 06/02/20 12:28 17:29 00:08 WBC RBC Hgb Hct RDW Lymph % (Auto) [place] % (Auto) Lymph # [place] # Seg Neutrophils % Seg Neuts % (Manual) Lymphocytes % (Manual) Seg Neutrophils # Seg Neutrophils # Man Lymphocytes # (Manual) Monocytes # (Manual) D-Dimer Heparin Anti-Xa Level ABG pH ABG pO2 ABG HCO3 ABG O2 Saturation ABG Base Excess ABG Hemoglobin VBG pH Oxyhemoglobin Sodium Potassium Chloride Carbon Dioxide BUN Creatinine Glucose POC Glucose 199 H 209 H 162 H Lactic Acid Calcium AST Lactate Dehydrogenase Total Creatine Kinase CK-MB (CK-2) C-Reactive Protein Total Protein Albumin Urine WBC (Auto) Urine Creatinine Urine Total Protein Coronavirus (PCR) 06/02/20 06/02/20 06/02/20 04:20 04:20 04:44 WBC RBC Hgb 10.0 L Hct RDW Lymph % (Auto) [place] % (Auto) Lymph # [place] # Seg Neutrophils % Seg Neuts % (Manual) Lymphocytes % (Manual) Seg Neutrophils # Seg Neutrophils # Man Lymphocytes # (Manual) Monocytes # (Manual) D-Dimer Heparin Anti-Xa Level 0.10 L ABG pH ABG pO2 150.6 H ABG HCO3 ABG O2 Saturation ABG Base Excess -4.1 L ABG Hemoglobin 11.8 L VBG pH Oxyhemoglobin Sodium Potassium Chloride Carbon Dioxide BUN Creatinine Glucose POC Glucose Lactic Acid Calcium AST Lactate Dehydrogenase Total Creatine Kinase CK-MB (CK-2) C-Reactive Protein Total Protein Albumin Urine WBC (Auto) Urine Creatinine Urine Total Protein Coronavirus (PCR) 06/02/20 06/02/20 06/02/20 05:53 12:04 13:49 WBC RBC Hgb Hct RDW Lymph % (Auto) [place] % (Auto) Lymph # [place] # Seg Neutrophils % Seg Neuts % (Manual) Lymphocytes % (Manual) Seg Neutrophils # Seg Neutrophils # Man Lymphocytes # (Manual) Monocytes # (Manual) D-Dimer Heparin Anti-Xa Level 0.28 L ABG pH ABG pO2 ABG HCO3 ABG O2 Saturation ABG Base Excess ABG Hemoglobin VBG pH Oxyhemoglobin Sodium Potassium Chloride Carbon Dioxide BUN Creatinine Glucose POC Glucose 149 H 220 H Lactic Acid Calcium AST Lactate Dehydrogenase Total Creatine Kinase CK-MB (CK-2) C-Reactive Protein Total Protein Albumin Urine WBC (Auto) Urine Creatinine Urine Total Protein Coronavirus (PCR) 06/02/20 06/02/20 06/03/20 13:49 18:31 00:42 WBC RBC Hgb Hct RDW Lymph % (Auto) [place] % (Auto) Lymph # [place] # Seg Neutrophils % Seg Neuts % (Manual) Lymphocytes % (Manual) Seg Neutrophils # Seg Neutrophils # Man Lymphocytes # (Manual) Monocytes # (Manual) D-Dimer 769.68 H Heparin Anti-Xa Level ABG pH ABG pO2 ABG HCO3 ABG O2 Saturation ABG Base Excess ABG Hemoglobin VBG pH Oxyhemoglobin Sodium Potassium Chloride Carbon Dioxide BUN Creatinine Glucose POC Glucose 225 H 212 H Lactic Acid Calcium AST Lactate Dehydrogenase Total Creatine Kinase CK-MB (CK-2) C-Reactive Protein Total Protein Albumin Urine WBC (Auto) Urine Creatinine Urine Total Protein Coronavirus (PCR) 06/03/20 06/03/20 06/03/20 05:16 05:16 05:25 WBC 11.4 H RBC Hgb Hct RDW 16.4 H Lymph % (Auto) [place] % (Auto) Lymph # [place] # Seg Neutrophils % Seg Neuts % (Manual) Lymphocytes % (Manual) Seg Neutrophils # Seg Neutrophils # Man Lymphocytes # (Manual) Monocytes # (Manual) D-Dimer Heparin Anti-Xa Level ABG pH ABG pO2 160.9 H ABG HCO3 19.4 L ABG O2 Saturation ABG Base Excess -4.9 L ABG Hemoglobin 7.0 L VBG pH Oxyhemoglobin Sodium Potassium Chloride Carbon Dioxide 18 L BUN 65 H Creatinine 2.0 H Glucose 175 H POC Glucose Lactic Acid Calcium 8.0 L AST Lactate Dehydrogenase Total Creatine Kinase CK-MB (CK-2) C-Reactive Protein Total Protein 5.5 L Albumin 2.2 L Urine WBC (Auto) Urine Creatinine Urine Total Protein Coronavirus (PCR) 06/03/20 06/03/20 06/03/20 06:07 11:58 18:24 WBC RBC Hgb Hct RDW Lymph % (Auto) [place] % (Auto) Lymph # [place] # Seg Neutrophils % Seg Neuts % (Manual) Lymphocytes % (Manual) Seg Neutrophils # Seg Neutrophils # Man Lymphocytes # (Manual) Monocytes # (Manual) D-Dimer Heparin Anti-Xa Level ABG pH ABG pO2 ABG HCO3 ABG O2 Saturation ABG Base Excess ABG Hemoglobin VBG pH Oxyhemoglobin Sodium Potassium Chloride Carbon Dioxide BUN Creatinine Glucose POC Glucose 177 H 163 H 211 H Lactic Acid Calcium AST Lactate Dehydrogenase Total Creatine Kinase CK-MB (CK-2) C-Reactive Protein Total Protein Albumin Urine WBC (Auto) Urine Creatinine Urine Total Protein Coronavirus (PCR) 06/03/20 06/03/20 06/04/20 21:50 Unknown 00:26 WBC RBC Hgb Hct RDW Lymph % (Auto) [place] % (Auto) Lymph # [place] # Seg Neutrophils % Seg Neuts % (Manual) Lymphocytes % (Manual) Seg Neutrophils # Seg Neutrophils # Man Lymphocytes # (Manual) Monocytes # (Manual) D-Dimer Heparin Anti-Xa Level ABG pH ABG pO2 ABG HCO3 ABG O2 Saturation ABG Base Excess ABG Hemoglobin VBG pH Oxyhemoglobin Sodium 135 L Potassium Chloride Carbon Dioxide 18 L BUN Creatinine Glucose POC Glucose 241 H Lactic Acid Calcium AST Lactate Dehydrogenase Total Creatine Kinase CK-MB (CK-2) C-Reactive Protein Total Protein Albumin Urine WBC (Auto) 11.0 H Urine Creatinine Urine Total Protein Coronavirus (PCR) 06/04/20 06/04/20 06/04/20 03:35 04:19 04:19 WBC RBC 3.15 L Hgb 8.9 L Hct 26.8 L D RDW 15.9 H Lymph % (Auto) 6.0 L [place] % (Auto) Lymph # 0.6 L [place] # Seg Neutrophils % 86.6 H Seg Neuts % (Manual) Lymphocytes % (Manual) Seg Neutrophils # 9.1 H Seg Neutrophils # Man Lymphocytes # (Manual) Monocytes # (Manual) D-Dimer Heparin Anti-Xa Level ABG pH 7.331 L ABG pO2 ABG HCO3 ABG O2 Saturation ABG Base Excess -4.7 L ABG Hemoglobin 11.0 L VBG pH Oxyhemoglobin 93.9 L Sodium 136 L Potassium Chloride Carbon Dioxide 20 L BUN 73 H Creatinine 2.0 H Glucose 192 H POC Glucose Lactic Acid Calcium 8.0 L AST Lactate Dehydrogenase 271 H Total Creatine Kinase CK-MB (CK-2) C-Reactive Protein 2.20 H Total Protein 5.0 L Albumin 2.0 L Urine WBC (Auto) Urine Creatinine Urine Total Protein Coronavirus (PCR) 06/04/20 06/04/20 06/04/20 04:19 05:51 11:48 WBC RBC Hgb Hct RDW Lymph % (Auto) [place] % (Auto) Lymph # [place] # Seg Neutrophils % Seg Neuts % (Manual) Lymphocytes % (Manual) Seg Neutrophils # Seg Neutrophils # Man Lymphocytes # (Manual) Monocytes # (Manual) D-Dimer 414.52 H Heparin Anti-Xa Level ABG pH ABG pO2 ABG HCO3 ABG O2 Saturation ABG Base Excess ABG Hemoglobin VBG pH Oxyhemoglobin Sodium Potassium Chloride Carbon Dioxide BUN Creatinine Glucose POC Glucose 179 H 213 H Lactic Acid Calcium AST Lactate Dehydrogenase Total Creatine Kinase CK-MB (CK-2) C-Reactive Protein Total Protein Albumin Urine WBC (Auto) Urine Creatinine Urine Total Protein Coronavirus (PCR) 06/04/20 06/05/20 06/05/20 18:25 00:16 05:00 WBC RBC Hgb Hct RDW Lymph % (Auto) [place] % (Auto) Lymph # [place] # Seg Neutrophils % Seg Neuts % (Manual) Lymphocytes % (Manual) Seg Neutrophils # Seg Neutrophils # Man Lymphocytes # (Manual) Monocytes # (Manual) D-Dimer Heparin Anti-Xa Level ABG pH 7.286 L ABG pO2 96.2 H ABG HCO3 ABG O2 Saturation ABG Base Excess -6.3 L ABG Hemoglobin 8.8 L VBG pH Oxyhemoglobin 94.8 L Sodium Potassium Chloride Carbon Dioxide BUN Creatinine Glucose POC Glucose 238 H 183 H Lactic Acid Calcium AST Lactate Dehydrogenase Total Creatine Kinase CK-MB (CK-2) C-Reactive Protein Total Protein Albumin Urine WBC (Auto) Urine Creatinine Urine Total Protein Coronavirus (PCR) 06/05/20 06/05/20 06/05/20 05:39 07:25 07:25 WBC RBC 2.97 L Hgb 8.7 L Hct 25.7 L RDW 16.0 H Lymph % (Auto) 8.8 L [place] % (Auto) 13.3 H Lymph # 0.8 L [place] # 1.3 H Seg Neutrophils % 77.3 H Seg Neuts % (Manual) Lymphocytes % (Manual) Seg Neutrophils # Seg Neutrophils # Man Lymphocytes # (Manual) Monocytes # (Manual) D-Dimer Heparin Anti-Xa Level ABG pH ABG pO2 ABG HCO3 ABG O2 Saturation ABG Base Excess ABG Hemoglobin VBG pH Oxyhemoglobin Sodium 133 L Potassium Chloride Carbon Dioxide 17 L BUN 89 H Creatinine 2.8 H Glucose 176 H POC Glucose 149 H Lactic Acid Calcium 7.7 L AST Lactate Dehydrogenase Total Creatine Kinase CK-MB (CK-2) C-Reactive Protein Total Protein 4.2 L Albumin 1.9 L Urine WBC (Auto) Urine Creatinine Urine Total Protein Coronavirus (PCR) 06/05/20 06/05/20 06/05/20 07:25 12:05 15:41 WBC RBC Hgb Hct RDW Lymph % (Auto) [place] % (Auto) Lymph # [place] # Seg Neutrophils % Seg Neuts % (Manual) Lymphocytes % (Manual) Seg Neutrophils # Seg Neutrophils # Man Lymphocytes # (Manual) Monocytes # (Manual) D-Dimer Heparin Anti-Xa Level 0.76 H 0.81 H ABG pH ABG pO2 ABG HCO3 ABG O2 Saturation ABG Base Excess ABG Hemoglobin VBG pH Oxyhemoglobin Sodium Potassium Chloride Carbon Dioxide BUN Creatinine Glucose POC Glucose 198 H Lactic Acid Calcium AST Lactate Dehydrogenase Total Creatine Kinase CK-MB (CK-2) C-Reactive Protein Total Protein Albumin Urine WBC (Auto) Urine Creatinine Urine Total Protein Coronavirus (PCR) 06/05/20 06/05/20 06/06/20 18:08 23:25 04:00 WBC RBC Hgb Hct RDW Lymph % (Auto) [place] % (Auto) Lymph # [place] # Seg Neutrophils % Seg Neuts % (Manual) Lymphocytes % (Manual) Seg Neutrophils # Seg Neutrophils # Man Lymphocytes # (Manual) Monocytes # (Manual) D-Dimer Heparin Anti-Xa Level ABG pH ABG pO2 ABG HCO3 ABG O2 Saturation ABG Base Excess ABG Hemoglobin VBG pH Oxyhemoglobin Sodium Potassium Chloride Carbon Dioxide BUN Creatinine Glucose POC Glucose 223 H 169 H Lactic Acid Calcium AST Lactate Dehydrogenase Total Creatine Kinase CK-MB (CK-2) C-Reactive Protein Total Protein Albumin Urine WBC (Auto) 15.0 H Urine Creatinine Urine Total Protein Coronavirus (PCR) 06/06/20 06/06/20 06/06/20 04:00 05:33 05:38 WBC RBC 2.97 L Hgb 8.7 L Hct 26.8 L RDW 16.8 H Lymph % (Auto) [place] % (Auto) Lymph # [place] # Seg Neutrophils % Seg Neuts % (Manual) Lymphocytes % (Manual) Seg Neutrophils # Seg Neutrophils # Man Lymphocytes # (Manual) Monocytes # (Manual) D-Dimer Heparin Anti-Xa Level ABG pH ABG pO2 ABG HCO3 ABG O2 Saturation ABG Base Excess ABG Hemoglobin VBG pH Oxyhemoglobin Sodium Potassium Chloride Carbon Dioxide BUN Creatinine Glucose POC Glucose 186 H Lactic Acid Calcium AST Lactate Dehydrogenase Total Creatine Kinase CK-MB (CK-2) C-Reactive Protein Total Protein Albumin Urine WBC (Auto) Urine Creatinine 82.2 H Urine Total Protein 196 H Coronavirus (PCR) 06/06/20 06/06/20 06/06/20 05:38 12:25 17:03 WBC RBC Hgb Hct RDW Lymph % (Auto) [place] % (Auto) Lymph # [place] # Seg Neutrophils % Seg Neuts % (Manual) Lymphocytes % (Manual) Seg Neutrophils # Seg Neutrophils # Man Lymphocytes # (Manual) Monocytes # (Manual) D-Dimer Heparin Anti-Xa Level ABG pH ABG pO2 ABG HCO3 ABG O2 Saturation ABG Base Excess ABG Hemoglobin VBG pH Oxyhemoglobin Sodium 134 L Potassium 5.2 H Chloride Carbon Dioxide 18 L BUN 97 H Creatinine 2.5 H Glucose 193 H POC Glucose 239 H 252 H Lactic Acid Calcium 7.5 L AST Lactate Dehydrogenase Total Creatine Kinase CK-MB (CK-2) C-Reactive Protein Total Protein 4.1 L Albumin 1.9 L Urine WBC (Auto) Urine Creatinine Urine Total Protein Coronavirus (PCR) 06/07/20 06/07/20 06/07/20 00:16 01:49 04:00 WBC RBC 2.91 L Hgb 8.4 L Hct 25.0 L RDW 16.1 H Lymph % (Auto) 5.7 L [place] % (Auto) 10.5 H Lymph # 0.6 L [place] # 1.1 H Seg Neutrophils % 83.6 H Seg Neuts % (Manual) Lymphocytes % (Manual) Seg Neutrophils # 9.1 H Seg Neutrophils # Man Lymphocytes # (Manual) Monocytes # (Manual) D-Dimer Heparin Anti-Xa Level 0.26 L ABG pH ABG pO2 ABG HCO3 ABG O2 Saturation ABG Base Excess ABG Hemoglobin VBG pH Oxyhemoglobin Sodium Potassium Chloride Carbon Dioxide BUN Creatinine Glucose POC Glucose 173 H Lactic Acid Calcium AST Lactate Dehydrogenase Total Creatine Kinase CK-MB (CK-2) C-Reactive Protein Total Protein Albumin Urine WBC (Auto) Urine Creatinine Urine Total Protein Coronavirus (PCR) 06/07/20 06/07/20 06/07/20 04:00 04:54 05:51 WBC RBC Hgb Hct RDW Lymph % (Auto) [place] % (Auto) Lymph # [place] # Seg Neutrophils % Seg Neuts % (Manual) Lymphocytes % (Manual) Seg Neutrophils # Seg Neutrophils # Man Lymphocytes # (Manual) Monocytes # (Manual) D-Dimer Heparin Anti-Xa Level ABG pH 7.317 L ABG pO2 71.4 L ABG HCO3 ABG O2 Saturation 94.3 L ABG Base Excess -4.8 L ABG Hemoglobin 7.1 L VBG pH Oxyhemoglobin 92.2 L Sodium 133 L Potassium Chloride Carbon Dioxide 18 L BUN 100 H Creatinine 2.5 H Glucose 158 H POC Glucose 168 H Lactic Acid Calcium 7.6 L AST Lactate Dehydrogenase Total Creatine Kinase CK-MB (CK-2) C-Reactive Protein Total Protein 4.7 L Albumin 2.0 L Urine WBC (Auto) Urine Creatinine Urine Total Protein Coronavirus (PCR) 06/07/20 06/07/20 06/07/20 12:03 17:17 20:10 WBC RBC Hgb Hct RDW Lymph % (Auto) [place] % (Auto) Lymph # [place] # Seg Neutrophils % Seg Neuts % (Manual) Lymphocytes % (Manual) Seg Neutrophils # Seg Neutrophils # Man Lymphocytes # (Manual) Monocytes # (Manual) D-Dimer Heparin Anti-Xa Level 0.17 L ABG pH ABG pO2 ABG HCO3 ABG O2 Saturation ABG Base Excess ABG Hemoglobin VBG pH Oxyhemoglobin Sodium Potassium Chloride Carbon Dioxide BUN Creatinine Glucose POC Glucose 276 H 281 H Lactic Acid Calcium AST Lactate Dehydrogenase Total Creatine Kinase CK-MB (CK-2) C-Reactive Protein Total Protein Albumin Urine WBC (Auto) Urine Creatinine Urine Total Protein Coronavirus (PCR) 06/08/20 06/08/20 06/08/20 00:02 04:47 04:47 WBC 16.4 H RBC 3.07 L Hgb 8.6 L Hct 26.5 L RDW 16.3 H Lymph % (Auto) [place] % (Auto) Lymph # [place] # Seg Neutrophils % Seg Neuts % (Manual) 90.0 H Lymphocytes % (Manual) 3.0 L Seg Neutrophils # Seg Neutrophils # Man 14.8 H Lymphocytes # (Manual) 0.5 L Monocytes # (Manual) 1.1 H D-Dimer Heparin Anti-Xa Level ABG pH ABG pO2 ABG HCO3 ABG O2 Saturation ABG Base Excess ABG Hemoglobin VBG pH Oxyhemoglobin Sodium 129 L Potassium Chloride 95.6 L Carbon Dioxide 17 L BUN 106 H Creatinine 2.5 H Glucose 213 H POC Glucose 242 H Lactic Acid Calcium 7.6 L AST Lactate Dehydrogenase Total Creatine Kinase CK-MB (CK-2) C-Reactive Protein Total Protein 5.0 L Albumin 2.1 L Urine WBC (Auto) Urine Creatinine Urine Total Protein Coronavirus (PCR) 06/08/20 05:40 WBC RBC Hgb Hct RDW Lymph % (Auto) [place] % (Auto) Lymph # [place] # Seg Neutrophils % Seg Neuts % (Manual) Lymphocytes % (Manual) Seg Neutrophils # Seg Neutrophils # Man Lymphocytes # (Manual) Monocytes # (Manual) D-Dimer Heparin Anti-Xa Level ABG pH ABG pO2 ABG HCO3 ABG O2 Saturation ABG Base Excess ABG Hemoglobin VBG pH Oxyhemoglobin Sodium Potassium Chloride Carbon Dioxide BUN Creatinine Glucose POC Glucose 221 H Lactic Acid Calcium AST Lactate Dehydrogenase Total Creatine Kinase CK-MB (CK-2) C-Reactive Protein Total Protein Albumin Urine WBC (Auto) Urine Creatinine Urine Total Protein Coronavirus (PCR) Chest x-ray: image reviewed Allied health notes reviewed: RT
[2020-06-08] MEDS ORDERED: FUROSEMIDE 40 MG/4 ML INJ IV ONE (13:56)
--- NOTE | 2020-06-08 16:22 | Progress Note ---
Assessment and Plan - Patient Problems (1) Acute kidney injury (AVANI) with acute tubular necrosis (ATN) Current Visit: Yes Status: Acute Plan to address problem: AVANI most likely secondary to ATN in the setting of COIVD 19 pneumonia/s/p cardiac arrest. urine Na was low at 20 indicating superimposed intravascular depetion/pre-renal azotemia. s/p albumim 12.5g bid x 4 doses to increase oncotic pressure. cont bicarb 1350mg bid for treatment of met acidosis. No urgent indication for renal replacement therapy at present, however will consider if pt becomes more oliguric along with worsening azotemia, acidosis/persistent hyperkalemia despite above treatment. Cont supportive care for ATN, avoid further nephrotoxins, IV contrast. (2) Pneumonia due to COVID-19 virus Current Visit: Yes Status: Acute Plan to address problem: s/p Remdesivir, IV Dexamethasone. trend inflammatory markers. management as per ID/pulm/CCM (3) Acute hypoxemic respiratory failure Current Visit: Yes Status: Acute Plan to address problem: on ventilator support (4) Metabolic acidosis Current Visit: Yes Status: Acute Plan to address problem: cont Na bicarb 1350mg bid (5) Hyperkalemia Current Visit: Yes Status: Acute Plan to address problem: normalized. cont 2g K renal diet. Cont Na bicarb to correct metabolic acidosis. Subjective Date of service: 06/08/20 Principal diagnosis: Ac hypoxemic resp failure; COVID-19; pneumonia; CHF; Pulm HTN; OHS; DM II Interval history: Pt remains intubated, on vent support. pt remains non-oliguric Objective - Exam Narrative Exam: Exam reviewed in chart d/t PPE preservation and risk of transmission - Vital Signs Vital signs: Vital Signs - 12hr 06/08/20 06/08/20 06/08/20 04:21 04:30 04:40 Temperature Pulse Rate 74 77 78 Pulse Rate [ From Monitor] Respiratory 14 13 Rate Blood Pressure 146/56 155/58 155/58 O2 Sat by Pulse 98 98 98 Oximetry 06/08/20 06/08/20 06/08/20 04:41 04:50 05:00 Temperature Pulse Rate 78 79 76 Pulse Rate [ From Monitor] Respiratory 12 10 L 10 L Rate Blood Pressure 155/58 156/59 156/62 O2 Sat by Pulse 98 98 99 Oximetry 06/08/20 06/08/20 06/08/20 05:11 05:21 05:30 Temperature Pulse Rate 72 72 70 Pulse Rate [ From Monitor] Respiratory 13 10 L 12 Rate Blood Pressure 156/62 156/61 162/62 O2 Sat by Pulse 99 99 98 Oximetry 06/08/20 06/08/20 06/08/20 05:41 05:51 06:00 Temperature Pulse Rate 68 66 65 Pulse Rate [ From Monitor] Respiratory 13 13 12 Rate Blood Pressure 162/62 148/58 143/55 O2 Sat by Pulse 99 99 98 Oximetry 06/08/20 06/08/20 06/08/20 06:11 06:21 06:22 Temperature Pulse Rate 65 64 67 Pulse Rate [ From Monitor] Respiratory 13 12 Rate Blood Pressure 143/55 143/55 147/59 O2 Sat by Pulse 98 98 Oximetry 06/08/20 06/08/20 06/08/20 06:24 06:30 06:41 Temperature Pulse Rate 65 69 77 Pulse Rate [ From Monitor] Respiratory 12 11 L Rate Blood Pressure 147/59 155/60 155/60 O2 Sat by Pulse 99 99 Oximetry 06/08/20 06/08/20 06/08/20 06:51 07:01 07:11 Temperature Pulse Rate 70 68 68 Pulse Rate [ From Monitor] Respiratory 12 11 L 10 L Rate Blood Pressure 147/59 155/57 155/57 O2 Sat by Pulse 99 99 99 Oximetry 06/08/20 06/08/20 06/08/20 07:21 07:30 07:41 Temperature Pulse Rate 66 65 69 Pulse Rate [ From Monitor] Respiratory 10 L 14 11 L Rate Blood Pressure 155/60 146/56 146/56 O2 Sat by Pulse 98 99 99 Oximetry 06/08/20 06/08/20 06/08/20 07:51 07:57 08:00 Temperature 98.5 F Pulse Rate 66 70 70 Pulse Rate [ 68 From Monitor] Respiratory 11 L 14 Rate Blood Pressure 154/63 158/64 158/64 O2 Sat by Pulse 99 99 99 Oximetry 06/08/20 06/08/20 06/08/20 08:11 08:21 08:30 Temperature Pulse Rate 67 63 63 Pulse Rate [ From Monitor] Respiratory 10 L 12 12 Rate Blood Pressure 158/64 158/64 151/59 O2 Sat by Pulse 99 99 99 Oximetry 06/08/20 06/08/2020 08:41 08:51 09:00 Temperature Pulse Rate 69 68 67 Pulse Rate [ From Monitor] Respiratory 11 L 11 L 10 L Rate Blood Pressure 151/59 157/67 167/67 O2 Sat by Pulse 99 99 99 Oximetry 06/08/20 06/08/20 06/08/20 09:01 09:11 09:21 Temperature Pulse Rate 66 64 65 Pulse Rate [ From Monitor] Respiratory 11 L 13 Rate Blood Pressure 167/67 167/67 156/65 O2 Sat by Pulse 98 99 Oximetry 06/08/20 06/08/20 06/08/20 09:30 09:41 09:51 Temperature Pulse Rate 63 64 64 Pulse Rate [ From Monitor] Respiratory 13 10 L 12 Rate Blood Pressure 152/58 152/58 151/61 O2 Sat by Pulse 98 98 98 Oximetry 06/08/20 06/08/20 06/08/20 10:00 10:11 10:21 Temperature Pulse Rate 65 63 61 Pulse Rate [ From Monitor] Respiratory 11 L 10 L 14 Rate Blood Pressure 152/60 152/60 144/54 O2 Sat by Pulse 99 98 98 Oximetry 06/08/20 06/08/20 06/08/20 10:30 10:41 10:51 Temperature Pulse Rate 61 71 67 Pulse Rate [ From Monitor] Respiratory 10 L 10 L 10 L Rate Blood Pressure 141/55 141/55 132/63 O2 Sat by Pulse 98 99 98 Oximetry 06/08/20 06/08/20 06/08/20 11:00 11:11 11:21 Temperature Pulse Rate 65 64 64 Pulse Rate [ From Monitor] Respiratory 10 L 10 L 10 L Rate Blood Pressure 145/58 145/58 139/56 O2 Sat by Pulse 98 98 98 Oximetry 06/08/20 06/08/20 06/08/20 11:30 11:36 11:40 Temperature Pulse Rate 64 65 67 Pulse Rate [ From Monitor] Respiratory 11 L 10 L 12 Rate Blood Pressure 140/53 140/53 140/53 O2 Sat by Pulse 97 97 98 Oximetry 06/08/20 06/08/20 06/08/20 11:50 12:00 12:10 Temperature 98.7 F Pulse Rate 67 84 91 H Pulse Rate [ 91 H From Monitor] Respiratory 10 L 13 13 Rate Blood Pressure 146/58 146/58 O2 Sat by Pulse 97 99 99 Oximetry 06/08/20 06/08/20 06/08/20 12:20 12:30 12:40 Temperature Pulse Rate 87 86 79 Pulse Rate [ From Monitor] Respiratory 15 11 L 12 Rate Blood Pressure 164/89 164/89 179/84 O2 Sat by Pulse 98 98 98 Oximetry 06/08/20 06/08/20 06/08/20 12:50 13:00 13:10 Temperature Pulse Rate 74 71 68 Pulse Rate [ From Monitor] Respiratory 10 L 14 15 Rate Blood Pressure 170/69 150/57 150/57 O2 Sat by Pulse 98 97 96 Oximetry 06/08/20 06/08/20 06/08/20 13:20 13:30 13:36 Temperature Pulse Rate 67 66 67 Pulse Rate [ From Monitor] Respiratory 11 L 12 Rate Blood Pressure 141/52 133/53 133/53 O2 Sat by Pulse 96 96 Oximetry 06/08/20 06/08/20 06/08/20 13:37 13:40 13:50 Temperature Pulse Rate 66 66 65 Pulse Rate [ From Monitor] Respiratory 20 12 Rate Blood Pressure 133/53 133/53 131/54 O2 Sat by Pulse 95 97 Oximetry 06/08/20 06/08/20 06/08/20 14:00 14:10 14:20 Temperature Pulse Rate 65 65 64 Pulse Rate [ From Monitor] Respiratory 10 L 12 10 L Rate Blood Pressure 139/54 139/54 135/52 O2 Sat by Pulse 96 95 96 Oximetry 06/08/20 06/08/20 06/08/20 14:30 14:40 14:50 Temperature Pulse Rate 64 63 64 Pulse Rate [ From Monitor] Respiratory 13 13 12 Rate Blood Pressure 135/51 135/51 144/54 O2 Sat by Pulse 96 97 97 Oximetry 06/08/20 06/08/20 06/08/20 15:00 15:10 15:20 Temperature Pulse Rate 64 63 65 Pulse Rate [ From Monitor] Respiratory 11 L 11 L 11 L Rate Blood Pressure 142/55 142/55 140/51 O2 Sat by Pulse 97 97 97 Oximetry - Lab 06/08/20 04:47 06/08/20 04:47 Most recent lab results ABG pH 7.317 pH Units (7.350-7.450) L 06/07/20 04:54 ABG pCO2 41.9 mm Hg 06/07/20 04:54 ABG pO2 71.4 mm Hg (80.0-90.0) L 06/07/20 04:54 ABG HCO3 20.9 mmol/L (20.0-26.0) 06/07/20 04:54 ABG O2 Saturation 94.3 % (95.0-99.0) L 06/07/20 04:54 Calcium 7.6 mg/dL (8.4-10.2) L 06/08/20 04:47 Urine Creatinine 82.2 mg/dL (0.1-20.0) H 06/06/20 04:00 Urine Sodium 20 mmol/L 06/06/20 04:00 Urine Total Protein 196 mg/dL (5-11.8) H 06/06/20 04:00 Medications & Allergies - Medications Allergies/Adverse Reactions: Allergies No Known Allergies Allergy (Verified 01/21/20 12:28) Home Medications: Home Medications Medication Instructions Recorded Confirmed Last Taken Type AtorvaSTATin [Lipitor] 20 mg PO QHS 05/12/20 05/29/20 Unknown History lisinopriL [Zestril TAB] 40 mg PO QDAY 05/12/20 05/29/20 Unknown History metFORMIN [Glucophage] 850 mg PO BID 05/12/20 05/29/20 Unknown History Acetaminophen [Acetaminophen TAB] 650 mg PO Q4H PRN tablet 05/13/20 05/29/20 Unknown Rx Dicyclomine [Bentyl] 20 mg PO BID #20 tablet 05/13/20 05/29/20 Unknown Rx Famotidine [Pepcid] 20 mg PO BID #30 tablet 05/13/20 05/29/20 Unknown Rx carvediloL [Coreg] 6.25 mg PO BID #60 05/13/20 05/29/20 Unknown Rx Active Medications: Generic Name Dose Route Start Last Admin Trade Name Freq PRN Reason Stop Dose Admin Amlodipine Besylate 10 mg 06/02/20 11:00 06/08/20 09:01 Amlodipine PO 10 mg DAILY NELSON Administration Lipase/Protease/Amylase 1 each 05/29/20 13:39 Pancreaze 10,500 Unit FEEDTUBE PRN PRN For Clogged Feeding Tube Carvedilol 12.5 mg 06/03/20 10:00 06/08/20 09:01 Coreg PO 12.5 mg BID NELSON Administration Clonidine HCl 0.1 mg 06/04/20 06:00 06/08/20 13:37 Catapres PO 0.1 mg Q8HR NELSON Administration Clonidine HCl 0.2 mg 06/04/20 06:00 06/08/20 13:37 Catapres PO 0.2 mg Q8HR NELSON Administration Fentanyl 50 mcg 05/29/20 14:21 06/08/20 12:21 Sublimaze IV 50 mcg Q10MIN PRN Administration ANALGESIA Glycopyrrolate 1 mg 06/05/20 15:00 06/08/20 13:37 Robinul PO 1 mg TID NELSON Administration Hydralazine HCl 50 mg 06/03/20 09:00 06/08/20 13:36 Apresoline PO 50 mg Q8HR NELSON Administration Hydrophilic Ointment 1 applic 05/28/20 13:49 Vaseline Lip Therapy TP Q2HR PRN Dry Lips Heparin Sodium/Sodium Chloride 25,000 unit in 500 mls @ 30 mls/hr 05/29/20 15:00 06/08/20 06:25 Heparin/ 0.45% Nacl-25,000 Unit/500 Ml IV 1,450 units/hr TITR NELSON 29 mls/hr Administration Protocol 1,500 UNITS/HR Fentanyl Citrate 2,000 mcg in 100 mls @ 6.095 mls/hr 05/29/20 15:00 06/07/20 08:30 Fentanyl Drip Premix IV 0 mcg/kg/hr TITR NELSON 0 mls/hr Titration Protocol 1 MCG/KG/HR Nicardipine HCl 50 mg/ Sodium 250 mls @ 25 mls/hr 06/02/20 09:00 06/02/20 11:23 Chloride IV 0 mg/hr TITR NELSON 0 mls/hr Titration Protocol 5 MG/HR Insulin Glargine 10 units 06/08/20 22:00 Lantus SUB-Q QHS NELSON Insulin Human Lispro 0 unit 05/29/20 18:00 06/08/20 11:47 Humalog SUB-Q 4 unit Q6H NELSON Administration Protocol Labetalol HCl 20 mg 06/03/20 09:00 Labetalol IV Q4H PRN HYPERTENSION Lansoprazole 30 mg 06/05/20 22:00 06/08/20 09:02 Prevacid Solutab FEEDTUBE 30 mg BID NELSON Administration Levetiracetam 500 mg 05/29/20 22:00 06/08/20 09:01 Keppra PO 500 mg BID NELSON Administration Multi-Ingred Cream/Lotion/Oil/Oint 1 applic 05/28/20 13:49 Artificial Tears Ophth Oint OU Q4HR PRN Dry Eye(s) Ondansetron HCl 4 mg 06/02/20 09:00 Zofran IV Q8H PRN Nausea And Vomiting Quetiapine Fumarate 200 mg 06/08/20 22:00 Seroquel PO QHS NELSON Scopolamine 1 each 06/05/20 14:00 06/08/20 09:02 Transderm-Scop TD 1 each Q3D NELSON Administration Senna 17.6 mg 06/03/20 10:00 06/08/20 09:01 Senokot FEEDTUBE 17.6 mg BID NELSON Administration Simple Syrup 15 ml 05/29/20 13:39 Simple Syrup FEEDTUBE PRN PRN Hypoglycemia Simple Syrup 30 ml 05/29/20 13:39 Simple Syrup FEEDTUBE PRN PRN Hypoglycemia Sodium Bicarbonate 325 mg 05/29/20 13:39 Sodium Bicarbonate FEEDTUBE PRN PRN For Clogged Feeding Tube Sodium Bicarbonate 650 mg 06/06/20 10:00 06/08/20 09:02 Sodium Bicarbonate PO 650 mg BID NELSON Administration Sodium Chloride 10 ml 05/28/20 22:00 06/08/20 09:01 Sodium Chloride Flush Syringe 10 Ml IV 10 ml BID NELSON Administration Sodium Chloride 10 ml 05/28/20 19:08 Sodium Chloride Flush Syringe 10 Ml IV PRN PRN LINE FLUSH
--- NOTE | 2020-06-08 16:51 | Progress Note ---
Assessment and Plan Assessment and plan: 64 YO Female with a medical history of HTN, Diastolic CHF, Pulmonary HTN, DM, Obesity Hypoventilation Syndrome presents to ED for evaluation of shortness of breath. Patients history taken from EMS staff, ED staff. As per staff, the EMS was notified for difficulty breathing. Upon arrival to the patient's home the patient was found to be in distress and was subsequently transported to [facility] for further evaluation and care. In route to [facility] the patient developed cardiac arrest and was treated in accordance with ACLS protocol with return of ROSC Patient was seen and evaluated in the emergency department and was found to have acute hypoxemic respiratory failure status post cardiac arrest. Patient was intubated and placed on ventilatory support. Patient admitted to ICU due to increased risk of decompensation. Critical care team consulted in ED. She was found to have COVID-19 iinfection and was started on steroids and remdesivir. ID was consulted. Cardiology was consulted for her systolic heart failure and cardiac arrest. 06/01. Patient remains intubated and on ventilatory support today. Patient has multiple organ system failure and has poor prognosis. Patient did not experience significant medical decompensation overnight but no improvement with current therapy. 06/02. Remains intubated. her BP is elevated. Started on nicardipine drip. Cardiology following. 06/03-06/04. BP is better. Hb stable. Completed remdesivir. ID , Cardiology and Critical care team on board 06/05. Bump in creatinine. I/O reviewed. Nephrology consulted. 06/06. Has slight improvement in renal function. Nephrology on board. On SBT today. Vitals stable. 06/07. Stable renal function. No need for HD as per nephrology. She is making urine. Plan for SBT. 06/08. Off sedation and very lethargic. Her BUN is going up - effect of steroids vs GI bleed. Her hemoglobin remains stable. Will check stool guaiac. Nephrology is following. WBC bumped to 16 today. Patient Problems (1) Acute hypoxemic respiratory failure Current Visit: Yes Status: Acute Plan to address problem: From COVID-19 viral infection Patient intubated, sedated and on ventilatory support. Critical care team on board On SBT as per critical care team The high probability of a clinically significant, sudden or life threatening deterioration of the [pulmonary, renal, cardiac, neuro] system(s) required my full and direct attention, intervention and personal management. The aggregate critical care time was [90] minutes. This time is in addition to time spent performing reported procedures but includes the following: [x] Data Review and interpretation [x] Patient assessment and monitoring of vital signs [x] Documentation [x] Medication orders and management (2) Cardiac arrest Current Visit: Yes Status: Acute Plan to address problem: Cardiology team on board Conservative management as per cardiology (3) Acute renal failure Current Visit: Yes Status: Acute Plan to address problem: Cr stable. BUN is climbing - now >100. ?may need HD soon - defer to nephrology Avoid ACEI and other nephrotoxic medications Nephrology following (4) Coronavirus infection Current Visit: Yes Status: Acute Plan to address problem: Completed remdesivir on 06/02 Continue dexamethasone - Last dose 06/07 ID recs appreciated. Maintained on ventilator (5) CHF (congestive heart failure) Current Visit: Yes Status: Acute Qualifiers: Heart failure type: systolic Heart failure chronicity: acute Qualified Code(s): I50.21 - Acute systolic (congestive) heart failure Plan to address problem: Cardiology following. (6) Coffee ground emesis -Stress ulcers Possible stress ulcers On PPI H/H remains stable GI evaluation if Hb drops again (7) Hypertension Continue amlodipine, coreg, clonidine and hydralazine Monitor BP (8) DVT prophylaxis Current Visit: Yes Status: Acute Plan to address problem: SCD to bilateral lower extremities while in bed Heparin (9) Advance care planning Current Visit: Yes Status: Acute Plan to address problem: Disease education conducted, prognosis discussed, +30 minutes. Patient is full code. History Interval history: See assessment and plan Hospitalist Physical - Constitutional Vitals: Temp Pulse Resp BP Pulse Ox 98.7 F 95 H 11 L 207/75 98 06/08/20 12:00 06/08/20 16:00 06/08/20 15:20 06/08/20 16:00 06/08/20 16:00 General appearance: Present: obese, other (intubated on the vent) - EENT Eyes: Present: PERRL - Neck Neck: Present: supple - Cardiovascular Rhythm: regular Heart Sounds: Present: S1 & S2 - Extremities Extremities: No edema - Abdominal General gastrointestinal: soft, non-tender, non-distended - Neurologic Neurologic: other (Intubated) Results - Labs CBC & Chem 7: 06/08/20 04:47 06/08/20 04:47 Labs: Laboratory Last Values WBC 16.4 K/mm3 (4.5-11.0) H 06/08/20 04:47 RBC 3.07 M/mm3 (3.65-5.03) L 06/08/20 04:47 Hgb 8.6 gm/dl (10.1-14.3) L 06/08/20 04:47 Hct 26.5 % (30.3-42.9) L 06/08/20 04:47 MCV 86 fl (79-97) 06/08/20 04:47 MCH 28 pg (28-32) 06/08/20 04:47 MCHC 32 % (30-34) 06/08/20 04:47 RDW 16.3 % (13.2-15.2) H 06/08/20 04:47 Plt Count 188 K/mm3 (140-440) 06/08/20 04:47 Lymph % (Auto) 5.7 % (13.4-35.0) L 06/07/20 04:00 [place] % (Auto) 10.5 % (0.0-7.3) H 06/07/20 04:00 Eos % (Auto) 0.1 % (0.0-4.3) 06/07/20 04:00 Baso % (Auto) 0.1 % (0.0-1.8) 06/07/20 04:00 Lymph # 0.6 K/mm3 (1.2-5.4) L 06/07/20 04:00 [place] # 1.1 K/mm3 (0.0-0.8) H 06/07/20 04:00 Eos # 0.0 K/mm3 (0.0-0.4) 06/07/20 04:00 Baso # 0.0 K/mm3 (0.0-0.1) 06/07/20 04:00 Add Manual Diff Complete 06/08/20 04:47 Total Counted 100 06/08/20 04:47 Seg Neutrophils % 83.6 % (40.0-70.0) H 06/07/20 04:00 Seg Neuts % (Manual) 90.0 % (40.0-70.0) H 06/08/20 04:47 Band Neutrophils % 0 % 06/08/20 04:47 Lymphocytes % (Manual) 3.0 % (13.4-35.0) L 06/08/20 04:47 Reactive Lymphs % (Man) 0 % 06/08/20 04:47 Monocytes % (Manual) 7.0 % (0.0-7.3) 06/08/20 04:47 Eosinophils % (Manual) 0 % (0.0-4.3) 06/08/20 04:47 Basophils % (Manual) 0 % (0.0-1.8) 06/08/20 04:47 Metamyelocytes % 0 % 06/08/20 04:47 Myelocytes % 0 % 06/08/20 04:47 Promyelocytes % 0 % 06/08/20 04:47 Blast Cells % 0 % 06/08/20 04:47 Nucleated RBC % Not Reportable 06/08/20 04:47 Seg Neutrophils # 9.1 K/mm3 (1.8-7.7) H 06/07/20 04:00 Seg Neutrophils # Man 14.8 K/mm3 (1.8-7.7) H 06/08/20 04:47 Band Neutrophils # 0.0 K/mm3 06/08/20 04:47 Lymphocytes # (Manual) 0.5 K/mm3 (1.2-5.4) L 06/08/20 04:47 Abs React Lymphs (Man) 0.0 K/mm3 06/08/20 04:47 Monocytes # (Manual) 1.1 K/mm3 (0.0-0.8) H 06/08/20 04:47 Eosinophils # (Manual) 0.0 K/mm3 (0.0-0.4) 06/08/20 04:47 Basophils # (Manual) 0.0 K/mm3 (0.0-0.1) 06/08/20 04:47 Metamyelocytes # 0.0 K/mm3 06/08/20 04:47 Myelocytes # 0.0 K/mm3 06/08/20 04:47 Promyelocytes # 0.0 K/mm3 06/08/20 04:47 Blast Cells # 0.0 K/mm3 06/08/20 04:47 WBC Morphology Not Reportable 06/08/20 04:47 Hypersegmented Neuts Not Reportable 06/08/20 04:47 Hyposegmented Neuts Not Reportable 06/08/20 04:47 Hypogranular Neuts Not Reportable 06/08/20 04:47 Smudge Cells Not Reportable 06/08/20 04:47 Toxic Granulation Not Reportable 06/08/20 04:47 Toxic Vacuolation Not Reportable 06/08/20 04:47 Dohle Bodies Not Reportable 06/08/20 04:47 Pelger-Huet Anomaly Not Reportable 06/08/20 04:47 Sanjuanita Rods Not Reportable 06/08/20 04:47 Platelet Estimate Consistent w auto 06/08/20 04:47 Clumped Platelets Not Reportable 06/08/20 04:47 Plt Clumps, EDTA Not Reportable 06/08/20 04:47 Large Platelets Not Reportable 06/08/20 04:47 Giant Platelets Not Reportable 06/08/20 04:47 Platelet Satelliting Not Reportable 06/08/20 04:47 Plt Morphology Comment Not Reportable 06/08/20 04:47 RBC Morphology Not Reportable 06/08/20 04:47 Dimorphic RBCs Not Reportable 06/08/20 04:47 Polychromasia Not Reportable 06/08/20 04:47 Hypochromasia Not Reportable 06/08/20 04:47 Poikilocytosis Not Reportable 06/08/20 04:47 Anisocytosis Few 06/08/20 04:47 Microcytosis Not Reportable 06/08/20 04:47 Macrocytosis Not Reportable 06/08/20 04:47 Spherocytes Not Reportable 06/08/20 04:47 Pappenheimer Bodies Not Reportable 06/08/20 04:47 Sickle Cells Not Reportable 06/08/20 04:47 Target Cells Not Reportable 06/08/20 04:47 Tear Drop Cells Not Reportable 06/08/20 04:47 Ovalocytes Not Reportable 06/08/20 04:47 Helmet Cells Not Reportable 06/08/20 04:47 Jones-Suffern Bodies Not Reportable 06/08/20 04:47 [place] Rings Not Reportable 06/08/20 04:47 Julia Cells Not Reportable 06/08/20 04:47 Bite Cells Not Reportable 06/08/20 04:47 Crenated Cell Not Reportable 06/08/20 04:47 Elliptocytes Not Reportable 06/08/20 04:47 Acanthocytes (Spur) Not Reportable 06/08/20 04:47 Rouleaux Not Reportable 06/08/20 04:47 Hemoglobin C Crystals Not Reportable 06/08/20 04:47 Schistocytes Not Reportable 06/08/20 04:47 Malaria parasites Not Reportable 06/08/20 04:47 Kev Bodies Not Reportable 06/08/20 04:47 Hem Pathologist Commnt No 06/08/20 04:47 PT 14.2 Sec. (12.2-14.9) 05/29/20 15:10 INR 1.08 (0.87-1.13) 05/29/20 15:10 APTT 27.2 Sec. (24.2-36.6) 05/29/20 15:10 D-Dimer 414.52 ng/mlDDU (0-234) H 06/04/20 04:19 Heparin Anti-Xa Level 0.45 U.I./ml (0.3-0.7) 06/08/20 04:47 ABG pH 7.317 pH Units (7.350-7.450) L 06/07/20 04:54 ABG pCO2 41.9 mm Hg 06/07/20 04:54 ABG pO2 71.4 mm Hg (80.0-90.0) L 06/07/20 04:54 ABG HCO3 20.9 mmol/L (20.0-26.0) 06/07/20 04:54 ABG O2 Saturation 94.3 % (95.0-99.0) L 06/07/20 04:54 ABG O2 Content 9.3 (0.0-44) 06/07/20 04:54 ABG Base Excess -4.8 mmol/L (-2.0-3.0) L 06/07/20 04:54 ABG Hemoglobin 7.1 gm/dl (12.0-16.0) L 06/07/20 04:54 ABG Carboxyhemoglobin 1.7 % (0.0-5.0) 06/07/20 04:54 ABG Methemoglobin 0.6 % (0.0-1.5) 06/07/20 04:54 VBG pH 7.152 (7.320-7.420) L* 05/28/20 13:47 Oxyhemoglobin 92.2 % (95.0-99.0) L 06/07/20 04:54 FiO2 25 % 06/07/20 04:54 Sodium 129 mmol/L (137-145) L 06/08/20 04:47 Potassium 4.8 mmol/L (3.6-5.0) 06/08/20 04:47 Chloride 95.6 mmol/L (98-107) L 06/08/20 04:47 Carbon Dioxide 17 mmol/L (22-30) L 06/08/20 04:47 Anion Gap 21 mmol/L 06/08/20 04:47 BUN 106 mg/dL (7-17) H 06/08/20 04:47 Creatinine 2.5 mg/dL (0.6-1.2) H 06/08/20 04:47 Estimated GFR 20 ml/min 06/08/20 04:47 BUN/Creatinine Ratio 42 % 06/08/20 04:47 Glucose 213 mg/dL (65-100) H 06/08/20 04:47 POC Glucose 221 (70-105) H 06/08/20 05:40 Lactic Acid 1.90 mmol/L (0.7-2.0) 05/28/20 14:46 Calcium 7.6 mg/dL (8.4-10.2) L 06/08/20 04:47 Ferritin 100.7 ng/mL (10.0-200.0) 06/04/20 04:19 Total Bilirubin 0.20 mg/dL (0.1-1.2) 06/08/20 04:47 AST 15 units/L (5-40) 06/08/20 04:47 ALT 13 units/L (7-56) 06/08/20 04:47 Alkaline Phosphatase 79 units/L (35-129) 06/08/20 04:47 Lactate Dehydrogenase 271 units/L (91-180) H 06/04/20 04:19 Total Creatine Kinase 301 units/L (30-135) H 05/28/20 13:47 CK-MB (CK-2) 4.3 ng/mL (0.0-4.0) H 05/28/20 13:47 CK-MB (CK-2) Rel Index 1.4 (0-4) 05/28/20 13:47 C-Reactive Protein 2.20 mg/dL (0.00-1.30) H 06/04/20 04:19 Total Protein 5.0 g/dL (6.3-8.2) L 06/08/20 04:47 Albumin 2.1 g/dL (3.9-5) L 06/08/20 04:47 Albumin/Globulin Ratio 0.7 % 06/08/20 04:47 Procalcitonin 0.17 ng/mL (<0.15) 06/04/20 04:19 Urine Color Yellow (Yellow) 06/06/20 04:00 Urine Turbidity Cloudy (Clear) 06/06/20 04:00 Urine pH 5.0 (5.0-7.0) 06/06/20 04:00 Ur Specific [place] 1.012 (1.003-1.030) 06/06/20 04:00 Urine Protein 100 mg/dl mg/dL (Negative) 06/06/20 04:00 Urine Glucose (UA) 50 mg/dL (Negative) 06/06/20 04:00 Urine Ketones Neg mg/dL (Negative) 06/06/20 04:00 Urine Blood Sm (Negative) 06/06/20 04:00 Urine Nitrite Neg (Negative) 06/06/20 04:00 Urine Bilirubin Neg (Negative) 06/06/20 04:00 Urine Urobilinogen < 2.0 mg/dL (<2.0) 06/06/20 04:00 Ur Leukocyte Esterase Neg (Negative) 06/06/20 04:00 Urine WBC (Auto) 15.0 /HPF (0.0-6.0) H 06/06/20 04:00 Urine RBC (Auto) 23.0 /HPF (0.0-6.0) 06/06/20 04:00 U Epithel Cells (Auto) 8.0 /HPF (0-13.0) 06/06/20 04:00 Urine Bacteria (Auto) 2+ /HPF (Negative) 06/06/20 04:00 Amorphous Crystals 1+ 06/06/20 04:00 Hyaline Casts 16 /LPF 06/06/20 04:00 Urine Mucus 2+ /HPF 06/06/20 04:00 Urine Yeast (Budding) 2+ /HPF 06/03/20 Unknown Urine Creatinine 82.2 mg/dL (0.1-20.0) H 06/06/20 04:00 Urine Sodium 20 mmol/L 06/06/20 04:00 Urine Total Protein 196 mg/dL (5-11.8) H 06/06/20 04:00 Coronavirus (PCR) Positive (Negative) A 05/28/20 Unknown - Diagnostic Impressions Diagnostic Impressions: Echocardiogram Limited Views 05/29/20 13:52 Transthoracic Echocardiogram Indication: Pulm Embolus BP: 169/76 HR: 85 Conclusions *Limited study for RV size post cardiopulmonar arrest. *RV is only slightly dilated, no significant difference from prior echo 05/13/2020. *Global left ventricular systolic function is at the lower limits of normal. *The estimated ejection fraction is 45-50%. *Mild to moderate concentric left ventricular hypertrophy is observed. *The left and right atria are both mild to moderately dilated. Findings Left Ventricle: The left ventricular chamber size is mildly dilated. Mild to moderate concentric left ventricular hypertrophy is observed. Global left ventricular systolic function is at the lower limits of normal. The estimated ejection fraction is 45-50%. Left Atrium: The left atrium is mild to moderately dilated. Right Ventricle: The right ventricle is slightly dilated. Right Atrium: The right atrium is mild to moderately dilated. Aortic Valve: The aortic valve leaflets are moderately thickened. Mitral Valve: There is mitral annular calcification. The mitral valve leaflets are moderately thickened. Tricuspid Valve: The tricuspid valve leaflets are mildly thickened. Pericardium: A trivial pericardial effusion is visualized. NDUM: 05/29/20 1808 Amended Report Transthoracic Echocardiogram Indication: Pulm Embolus BP: 169/76 HR: 85 Conclusions *Limited study for RV size post cardiopulmonary arrest. *RV is only slightly dilated, no significant difference from prior echo 05/13/2020. *Global left ventricular systolic function is at the lower limits of normal. *The estimated ejection fraction is 45-50%. *Mild to moderate concentric left ventricular hypertrophy is observed. *The left and right atria are both mild to moderately dilated. Findings Left Ventricle: The left ventricular chamber size is mildly dilated. Mild to moderate concentric left ventricular hypertrophy is observed. Global left ventricular systolic function is at the lower limits of normal. The estimated ejection fraction is 45-50%. Left Atrium: The left atrium is mild to moderately dilated. Right Ventricle: The right ventricle is slightly dilated. Right Atrium: The right atrium is mild to moderately dilated. Aortic Valve: The aortic valve leaflets are moderately thickened. Mitral Valve: There is mitral annular calcification. The mitral valve leaflets are moderately thickened. Tricuspid Valve: The tricuspid valve leaflets are mildly thickened. Pericardium: A trivial pericardial effusion is visualized. Helm/IV: Voiding Method Indwelling Catheter IV Catheter Type [Left INT / Saline Lock Antecubital] IV Catheter Type [Right Peripheral IV Forearm] IV Catheter Type [Left Leg] Intra-osseous Active Medications - Current Medications Current Medications: Generic Name Dose Route Start Last Admin Trade Name Freq PRN Reason Stop Dose Admin Amlodipine Besylate 10 mg 06/02/20 11:00 06/08/20 09:01 Amlodipine PO 10 mg DAILY NELSON Administration Lipase/Protease/Amylase 1 each 05/29/20 13:[address] 10,500 Unit FEEDTUBE PRN PRN For Clogged Feeding Tube Carvedilol 12.5 mg 06/03/20 10:00 06/08/20 09:01 Coreg PO 12.5 mg BID NELSON Administration Clonidine HCl 0.1 mg 06/04/20 06:00 06/08/20 13:37 Catapres PO 0.1 mg Q8HR NELSON Administration Clonidine HCl 0.2 mg 06/04/20 06:00 06/08/20 13:37 Catapres PO 0.2 mg Q8HR NELSON Administration Fentanyl 50 mcg 05/29/20 14:21 06/08/20 12:21 Sublimaze IV 50 mcg Q10MIN PRN Administration ANALGESIA Glycopyrrolate 1 mg 06/05/20 15:00 06/08/20 13:37 Robinul PO 1 mg TID NELSON Administration Hydralazine HCl 50 mg 06/03/20 09:00 06/08/20 13:36 Apresoline PO 50 mg Q8HR NELSON Administration Hydrophilic Ointment 1 applic 05/28/20 13:49 Vaseline Lip Therapy TP Q2HR PRN Dry Lips Heparin Sodium/Sodium Chloride 25,000 unit in 500 mls @ 30 mls/hr 05/29/20 15:00 06/08/20 06:25 Heparin/ 0.45% Nacl-25,000 Unit/500 Ml IV 1,450 units/hr TITR NESLON 29 mls/hr Administration Protocol 1,500 UNITS/HR Fentanyl Citrate 2,000 mcg in 100 mls @ 6.095 mls/hr 05/29/20 15:00 06/07/20 08:30 Fentanyl Drip Premix IV 0 mcg/kg/hr TITR NELSON 0 mls/hr Titration Protocol 1 MCG/KG/HR Nicardipine HCl 50 mg/ Sodium 250 mls @ 25 mls/hr 06/02/20 09:00 06/02/20 11:23 Chloride IV 0 mg/hr TITR NELSON 0 mls/hr Titration Protocol 5 MG/HR Insulin Glargine 10 units 06/08/20 22:00 Lantus SUB-Q QHS NELSON Insulin Human Lispro 0 unit 05/29/20 18:00 06/08/20 11:47 Humalog SUB-Q 4 unit Q6H NELSON Administration Protocol Labetalol HCl 20 mg 06/03/20 09:00 Labetalol IV Q4H PRN HYPERTENSION Lansoprazole 30 mg 06/05/20 22:00 06/08/20 09:02 Prevacid Solutab FEEDTUBE 30 mg BID NELSON Administration Levetiracetam 500 mg 05/29/20 22:00 06/08/20 09:01 Keppra PO 500 mg BID NELSON Administration Multi-Ingred Cream/Lotion/Oil/Oint 1 applic 05/28/20 13:49 Artificial Tears Ophth Oint OU Q4HR PRN Dry Eye(s) Ondansetron HCl 4 mg 06/02/20 09:00 Zofran IV Q8H PRN Nausea And Vomiting Quetiapine Fumarate 200 mg 06/08/20 22:00 Seroquel PO QHS NELSON Scopolamine 1 each 06/05/20 14:00 06/08/20 09:02 Transderm-Scop TD 1 each Q3D NELSON Administration Senna 17.6 mg 06/03/20 10:00 06/08/20 09:01 Senokot FEEDTUBE 17.6 mg BID NELSON Administration Simple Syrup 15 ml 05/29/20 13:39 Simple Syrup FEEDTUBE PRN PRN Hypoglycemia Simple Syrup 30 ml 05/29/20 13:39 Simple Syrup FEEDTUBE PRN PRN Hypoglycemia Sodium Bicarbonate 325 mg 05/29/20 13:39 Sodium Bicarbonate FEEDTUBE PRN PRN For Clogged Feeding Tube Sodium Bicarbonate 650 mg 06/06/20 10:00 06/08/20 09:02 Sodium Bicarbonate PO 650 mg BID NELSON Administration Sodium Chloride 10 ml 05/28/20 22:00 06/08/20 09:01 Sodium Chloride Flush Syringe 10 Ml IV 10 ml BID NELSON Administration Sodium Chloride 10 ml 05/28/20 19:08 Sodium Chloride Flush Syringe 10 Ml IV PRN PRN LINE FLUSH Nutrition/Malnutrition Assess - Dietary Evaluation Nutrition/Malnutrition Findings: Nutrition Notes Start: 05/29/20 11:45 Freq: Status: Active Protocol: Document 06/08/20 12:25 LM (Rec: 06/08/20 12:37 LM [id number]) Nutrition Notes Initial or Follow up Reassessment Current Diagnosis Acute Kidney Injury,Diabetes, Heart Failure,Respiratory Failure Other Pertinent Diagnosis s/p Cardiac Arrest, Metabolic Encephalopathy, COVID-19 (+) Current Diet TF - Nepro at 40ml/hr Labs/Tests Na 129 BUN 106 Cr 2.5 BG 213 Pertinent Medications Humalog Height 5 ft 6 in Weight 123 kg Kennan Body Weight (kg) 59.09 BMI 43.7 Weight Status Morbidly Obese Subjective/Other Information Nepro running at goal rate. Percent of energy/protein needs met: 100%/53% Burn Absent Trauma Absent GI Symptoms None Current % PO Negligible Minimum of two criteria No physical signs of malnutrition #1 Nutrition Diagnosis Inadequate oral intake Diagnosis Progress(for reassessment Continues documentation) Is patient on ventilator? Yes Is Patient Ambulatory and/or Out of Bed No REE-([facility]-confined to bed) 2172.576 Kcal/Kg value to use for calculation 13 Approximate Energy Requirements Using 1599 kcal/Kg Calculation Used for Recommendations Kcal/kg Additional Notes Pro needs up to 2.5g/kg IBW: up to 148g/day Fluid needs 1ml/kcal Nutrition Intervention Change Diet Order: Continue TF Nutrition Support: Continue Nepro at 40ml/hr Flush 75ml q4h for hyponatremia Flush with 175ml q4h once resolved Kcal 1,728 Protein (gm) 78 Fluid (mL) 698 Goal #1 TF tolerance Goal #2 TF to meet at least 75% energy and pro needs Anticipated Discharge Needs: Unable to determine at this becky Follow-Up By: 06/11/20 Additional Comments F/U for TF tolerance, Na lab
--- NOTE | 2020-06-08 17:36 | Progress Note ---
Assessment and Plan Cultures: Coronavirus PCR: Positive 05/28/2020 blood culture: no growth 05/28/2020 tracheal aspirate: Usual respiratory bobo 05/28/2020 urine culture: No growth 06/03/2020 urine culture: No growth A/P: 64-year-old female with hypertension, diastolic CHF, pulmonary hypertension, diabetes, obesity hypoventilation syndrome was admitted to the emergency room after she called EMS due to difficulty breathing. On the way to the hospital, patient developed cardiac arrest and was treated as per ACLS protocol: #Bilateral pneumonia: Secondary to COVID-19. Completed 5 days of IV Remdesivir 06/02/2020. #Acute hypoxic respiratory failure: On mechanical ventilation. Minimal vent settings. #Status post PEA arrest, encephalopathy #HF: EF 45-50% #Mild LFT elevation: likely from COVID-19. #Mild AVANI not better Recs: Completed dexamethasone Continue to monitor. Keisha Chaudhari MD [facility] ([facility]) M: [phone] O: [phone] F: [phone] Subjective Date of service: 06/08/20 Principal diagnosis: Ac hypoxemic resp failure; COVID-19; pneumonia; CHF; Pulm HTN; OHS; DM II Interval history: Afebrile, white count of 16.4. Which is worse from yesterday. Remains intubated. Imaging personally reviewed: Chest x-ray: Minimal change Objective - Exam Narrative Exam: Physical exam deferred due to PPE conservation strategy. Please refer to primary team's note. - Constitutional Vitals: Vital Signs Temp Pulse Resp BP Pulse Ox 98.7 F 74 14 149/54 97 06/08/20 12:00 06/08/20 17:00 06/08/20 17:00 06/08/20 17:00 06/08/20 17:00 Temperature -Last 24 Hours Temperature 98.7 F Temperature 98.5 F Temperature 99 F Temperature 98.9 F Temperature 99.1 F - Labs CBC & Chem 7: 06/08/20 04:47 06/08/20 04:47 Labs: Abnormal lab results 06/07/20 06/08/20 06/08/20 Range/Units 20:10 00:02 04:47 WBC 16.4 H (4.5-11.0) K/mm3 RBC 3.07 L (3.65-5.03) M/mm3 Hgb 8.6 L (10.1-14.3) gm/dl Hct 26.5 L (30.3-42.9) % RDW 16.3 H (13.2-15.2) % Seg Neuts % (Manual) 90.0 H (40.0-70.0) % Lymphocytes % (Manual) 3.0 L (13.4-35.0) % Seg Neutrophils # Man 14.8 H (1.8-7.7) K/mm3 Lymphocytes # (Manual) 0.5 L (1.2-5.4) K/mm3 Monocytes # (Manual) 1.1 H (0.0-0.8) K/mm3 Heparin Anti-Xa Level 0.17 L (0.3-0.7) U.I./ml Sodium (137-145) mmol/L Chloride (98-107) mmol/L Carbon Dioxide (22-30) mmol/L BUN (7-17) mg/dL Creatinine (0.6-1.2) mg/dL Glucose (65-100) mg/dL POC Glucose 242 H (70-105) Calcium (8.4-10.2) mg/dL Total Protein (6.3-8.2) g/dL Albumin (3.9-5) g/dL 06/08/20 06/08/20 Range/Units 04:47 05:40 WBC (4.5-11.0) K/mm3 RBC (3.65-5.03) M/mm3 Hgb (10.1-14.3) gm/dl Hct (30.3-42.9) % RDW (13.2-15.2) % Seg Neuts % (Manual) (40.0-70.0) % Lymphocytes % (Manual) (13.4-35.0) % Seg Neutrophils # Man (1.8-7.7) K/mm3 Lymphocytes # (Manual) (1.2-5.4) K/mm3 Monocytes # (Manual) (0.0-0.8) K/mm3 Heparin Anti-Xa Level (0.3-0.7) U.I./ml Sodium 129 L (137-145) mmol/L Chloride 95.6 L (98-107) mmol/L Carbon Dioxide 17 L (22-30) mmol/L BUN 106 H (7-17) mg/dL Creatinine 2.5 H (0.6-1.2) mg/dL Glucose 213 H (65-100) mg/dL POC Glucose 221 H (70-105) Calcium 7.6 L (8.4-10.2) mg/dL Total Protein 5.0 L (6.3-8.2) g/dL Albumin 2.1 L (3.9-5) g/dL
[2020-06-08] MEDS: INSULIN GLARGINE 100 UNITS/ML SUB-Q SCH (21:58)
[2020-06-09] MEDS: INSULIN LISPRO 100 UNIT/ML VIAL 3 mL SUB-Q SCH ×4 (00:02→17:17)
[2020-06-09 05:32] LABS: Hematocrit 28.5 % (30.3-42.9); Hemoglobin 9.2 gm/dl (10.1-14.3); Mean Corpuscular HGB Conc 32 % (30-34); Mean Corpuscular Volume 85 fl (79-97); Platelet Count 250 K/mm3 (140-440); Red Blood Count 3.35 M/mm3 (3.65-5.03); Red Cell Distribution Width 16.3 % (13.2-15.2)
[2020-06-09 06:14] LABS: Albumin < 0.2 g/dL (3.9-5)
[2020-06-09 06:28] LABS: Alanine Aminotransferase 14 units/L (7-56); BUN/Creatinine Ratio 52; Blood Urea Nitrogen 109 mg/dL (7-17); Calcium 7.7 mg/dL (8.4-10.2); Hemolysis Index 2
[2020-06-09] MEDS: cloNIDine 0.1 MG TAB PO SCH ×3 (06:30→21:00)
[2020-06-09] MEDS: cloNIDine 0.2 MG TAB PO SCH ×3 (06:30→22:06)
[2020-06-09] MEDS: hydrALAZINE 25 MG TAB PO SCH ×3 (06:31→22:07)
[2020-06-09 06:48] LABS: Anisocytosis Few; Basophils % (Manual) 0 % (0.0-1.8); Hypochromasia Few; Platelet Estimate Consistent w Auto; Total Cells Counted 100
[2020-06-09] MEDS: SENNOSIDES ORAL LIQD 8.8 MG/5 ML ORAL LIQD FEEDTUBE SCH ×2 (09:45→22:10)
[2020-06-09] MEDS: FUROSEMIDE 40 MG/4 ML INJ IV SCH ×2 (09:45→17:05)
[2020-06-09] MEDS: levETIRAcetam 500 MG TAB PO SCH ×2 (09:46→22:06)
[2020-06-09] MEDS: LANSOPRAZOLE 30 MG SOLUTAB FEEDTUBE SCH ×2 (09:46→22:06)
[2020-06-09] MEDS: amLODIPine 10 MG TAB PO SCH (09:46)
[2020-06-09] MEDS: GLYCOPYRROLATE 1 MG TAB PO SCH (09:46)
[2020-06-09] MEDS: carvediloL 12.5 MG TAB PO SCH ×2 (09:46→21:05)
[2020-06-09] MEDS: SODIUM BICARBONATE 650 MG TAB PO SCH ×2 (09:46→22:06)
--- NOTE | 2020-06-09 11:00 | Progress Note ---
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 Well-preserved left ventricular systolic function. Conservative cardiac management. Subjective Date of service: 06/09/20 Principal diagnosis: Ac hypoxemic resp failure; COVID-19; pneumonia; CHF; Pulm HTN; OHS; DM II Interval history: Remains intubated. No cardiac events reported. Sinus rhythm on surveillance system monitor. Objective Vital Signs Temp Pulse Pulse Resp BP Pulse Ox 06/09/20 10:40 93 H 20 174/63 97 06/09/20 10:30 97 H 19 174/63 98 06/09/20 10:20 94 H 19 156/59 98 06/09/20 10:10 90 18 160/55 97 06/09/20 10:00 89 19 160/55 97 06/09/20 09:50 91 H 16 176/62 97 06/09/20 09:46 92 H 176/62 06/09/20 09:40 93 H 20 151/114 97 06/09/20 09:30 89 17 151/114 97 06/09/20 09:20 87 20 166/43 97 06/09/20 09:10 92 H 18 174/65 96 06/09/20 09:00 85 17 174/65 96 06/09/20 08:58 18 06/09/20 08:50 99 H 18 174/65 94 06/09/20 08:40 94 H 21 128/104 97 06/09/20 08:30 95 H 18 153/63 98 06/09/20 08:20 87 18 153/63 98 06/09/20 08:10 81 17 166/58 96 06/09/20 08:00 101.4 F H 81 66 21 143/59 96 06/09/20 07:50 85 18 143/62 97 06/09/20 07:40 91 H 17 167/65 97 06/09/20 07:30 92 H 22 166/58 97 06/09/20 07:20 93 H 18 167/65 97 06/09/20 07:18 90 94 06/09/20 07:10 92 H 21 164/67 97 06/09/20 07:00 94 H 22 164/67 97 06/09/20 06:50 82 17 163/60 96 06/09/20 06:40 97 H 21 145/54 97 06/09/20 06:31 87 166/69 06/09/20 06:30 90 20 145/54 94 06/09/20 06:20 87 17 169/60 94 06/09/20 06:10 91 H 20 181/71 94 06/09/20 06:00 88 20 171/65 94 06/09/20 05:50 88 18 162/58 94 06/09/20 05:40 88 19 181/71 94 06/09/20 05:30 95 H 20 181/71 95 06/09/20 05:20 92 H 18 169/92 96 06/09/20 05:10 95 H 17 156/54 97 06/09/20 05:00 93 H 18 156/54 97 06/09/20 04:50 84 18 156/54 96 06/09/20 04:40 82 17 154/59 96 06/09/20 04:30 80 16 154/59 97 06/09/20 04:20 80 17 159/54 97 06/09/20 04:10 89 18 159/61 100 06/09/20 04:00 87 91 H 19 159/61 92 06/09/20 03:54 91 H 92 06/09/20 03:50 93 H 21 200/173 93 06/09/20 03:40 94 H 16 168/62 93 06/09/20 03:34 99.8 F H 06/09/20 03:30 79 17 151/55 92 06/09/20 03:20 76 15 151/55 91 06/09/20 03:10 73 15 143/50 91 06/09/20 03:00 73 14 143/50 91 06/09/20 02:50 76 16 141/49 91 06/09/20 02:40 75 15 163/60 91 06/09/20 02:30 85 18 163/60 95 06/09/20 02:20 90 18 160/70 96 06/09/20 02:10 87 19 153/68 97 06/09/20 02:00 85 19 153/68 96 06/09/20 01:50 83 18 165/70 96 06/09/20 01:40 85 17 180/69 97 06/09/20 01:30 87 19 180/69 97 06/09/20 01:20 88 19 176/67 96 06/09/20 01:10 83 18 170/75 96 06/09/20 01:00 87 19 163/80 96 06/09/20 00:50 89 19 163/80 96 06/09/20 00:40 73 15 142/47 96 06/09/20 00:30 67 14 142/47 97 06/09/20 00:29 67 142/47 97 06/09/20 00:20 67 14 144/52 97 06/09/20 00:10 68 14 152/56 97 06/09/20 00:00 71 64 14 152/56 97 06/08/20 23:51 91 H 175/106 06/08/20 23:50 92 H 18 175/106 97 06/08/20 23:40 87 19 186/77 97 06/08/20 23:30 91 H 17 182/81 98 06/08/20 23:21 99.6 F 06/08/20 23:20 96 H 14 182/81 99 06/08/20 23:10 75 14 114/63 98 06/08/20 23:00 79 18 134/56 98 06/08/20 22:50 69 14 134/56 97 06/08/20 22:40 69 14 148/59 97 06/08/20 22:30 73 13 148/59 98 06/08/20 22:20 76 12 149/63 97 06/08/20 22:10 75 13 133/61 98 06/08/20 22:00 81 14 133/61 98 06/08/20 21:57 77 148/63 06/08/20 21:56 77 148/63 06/08/20 21:55 77 148/63 06/08/20 21:50 79 13 148/63 98 06/08/20 21:40 79 12 159/63 98 06/08/20 21:30 83 16 159/63 98 06/08/20 21:20 89 17 195/96 98 06/08/20 21:10 90 17 196/84 97 06/08/20 21:04 94 H 19 196/84 96 06/08/20 21:00 92 H 17 125/47 96 06/08/20 20:50 80 14 125/47 97 06/08/20 20:40 63 14 122/47 97 06/08/20 20:30 64 13 122/47 96 06/08/20 20:20 64 14 122/47 96 06/08/20 20:10 64 13 123/48 96 06/08/20 20:00 98.9 F 65 91 H 14 123/48 96 06/08/20 19:50 66 14 126/50 95 06/08/20 19:40 65 15 128/49 96 06/08/20 19:30 67 13 128/49 95 06/08/20 19:20 68 13 125/48 95 06/08/20 19:10 70 14 122/48 95 06/08/20 19:00 72 13 122/48 95 06/08/20 18:50 74 14 122/47 95 06/08/20 18:40 76 13 129/52 94 06/08/20 18:30 77 13 129/52 95 06/08/20 18:20 76 14 164/66 97 06/08/20 18:10 81 13 164/66 97 06/08/20 18:00 91 H 16 229/163 97 06/08/20 17:50 96 H 15 229/163 06/08/20 17:40 76 13 144/55 97 06/08/20 17:30 73 13 144/55 95 06/08/20 17:20 77 14 207/75 97 06/08/20 17:10 71 14 149/54 96 06/08/20 17:00 74 14 149/54 97 06/08/20 16:50 78 13 141/56 98 06/08/20 16:40 85 13 207/75 98 06/08/20 16:30 94 H 17 207/75 98 06/08/20 16:20 98 H 21 194/53 96 06/08/20 16:10 70 14 141/56 98 06/08/20 16:00 99.1 F 64 64 12 141/56 97 06/08/20 15:50 64 14 137/55 97 06/08/20 15:40 64 11 L 139/56 97 06/08/20 15:30 64 13 139/56 97 06/08/20 15:20 65 11 L 140/51 97 06/08/20 15:10 63 11 L 142/55 97 06/08/20 15:00 64 11 L 142/55 97 06/08/20 14:50 64 12 144/54 97 06/08/20 14:40 63 13 135/51 97 06/08/20 14:30 64 13 135/51 96 06/08/20 14:20 64 10 L 135/52 96 06/08/20 14:10 65 12 139/54 95 06/08/20 14:00 65 10 L 139/54 96 06/08/20 13:50 65 12 131/54 97 06/08/20 13:40 66 20 133/53 95 06/08/20 13:37 66 133/53 06/08/20 13:36 67 133/53 06/08/20 13:30 66 12 133/53 96 06/08/20 13:20 67 11 L 141/52 96 06/08/20 13:10 68 15 150/57 96 06/08/20 13:00 71 14 150/57 97 06/08/20 12:50 74 10 L 170/69 98 06/08/20 12:40 79 12 179/84 98 06/08/20 12:30 86 11 L 164/89 98 06/08/20 12:20 87 15 164/89 98 06/08/20 12:10 91 H 13 146/58 99 06/08/20 12:00 98.7 F 112 H 91 H 13 99 06/08/20 11:50 67 10 L 146/58 97 06/08/20 11:40 67 12 140/53 98 06/08/20 11:36 65 10 L 140/53 97 06/08/20 11:30 64 11 L 140/53 97 06/08/20 11:21 64 10 L 139/56 98 06/08/20 11:11 64 10 L 145/58 98 06/08/20 11:00 65 10 L 145/58 98 - Physical Examination Narrative exam: Deferred due to coronavirus isolation protocol. General: Other (intubated ) Cardiac: Positive: Reg Rate and Rhythm - Labs and Meds Cardiac Enzymes 06/09/20 Range/Units 05:16 AST 16 (5-40) units/L CBC 06/09/20 Range/Units 05:16 WBC 19.0 H (4.5-11.0) K/mm3 RBC 3.35 L (3.65-5.03) M/mm3 Hgb 9.2 L (10.1-14.3) gm/dl Hct 28.5 L (30.3-42.9) % Plt Count 250 (140-440) K/mm3 Comprehensive Metabolic Panel 06/09/20 Range/Units 05:16 Sodium 133 L (137-145) mmol/L Potassium 4.7 (3.6-5.0) mmol/L Chloride 98.2 (98-107) mmol/L Carbon Dioxide 19 L (22-30) mmol/L BUN 109 H (7-17) mg/dL Creatinine 2.1 H (0.6-1.2) mg/dL Glucose 133 H (65-100) mg/dL Calcium 7.7 L (8.4-10.2) mg/dL AST 16 (5-40) units/L ALT 14 (7-56) units/L Alkaline Phosphatase < 5 L (35-129) units/L Total Protein 4.6 L (6.3-8.2) g/dL Albumin < 0.2 L (3.9-5) g/dL - Allied health notes Allied health notes reviewed: nursing
[2020-06-09] MEDS: ACETAMINOPHEN 325 MG/10.15 ML ORAL LIQD UNIT DOSE FEEDTUBE PRN ×2 (11:20→20:28)
--- NOTE | 2020-06-09 11:27 | Progress Note ---
Assessment and Plan Acute hypoxemic respiratory failure on MVS Coronavirus-19 infection. Bilateral pulmonary infiltrates, bilateral pneumonia plus likely element of Pulmonary edema. Bilateral pulmonary edema. Bilateral pleural effusions. History of congestive heart failure. Morbid obesity. History of pulmonary hypertension. History of hypertension. Diabetes. Obesity hypoventilation syndrome. Elevated serum inflammatory markers to include D-dimers and LDH levels. Hyperkalemia at presentation. Metabolic acidosis. Oropharyngeal dysphagia. - RN asked to give analgesia - reglan started for GI motility - resume tube feeds after 4-6 hour hold - continue Robinul and scopolamine for secretions control (improved) - azotemia per nephrology - continue care as below otherwise; - strict I's and O's - continue care as below otherwise; - continue Daily SAT and SBT assessment as tolerated - continue to wean supplemental oxygen for target O2 sat's > 90% acutely - VAP bundle addressed - continue lung protective strategies - continue bronchodilators with pulmonary hygiene per RT - wean per pulmonary driven protocols otherwise - continue accuchecks resumed with glycemic control per SSI (While critically ill target blood glucose of 140-180 mg/dL; avoid hypoglycemia) - sedation prn for target RASS 0 to -1 - continue to avoid benzodiazepine's, reduce the possibility of delirium - completed AB's per ID rec's - prn analgesia per CPOT score - Maintenance of sleep-wake cycle, avoid delirium - continue enteral nutritional support at goal rate as tolerated - G.I. & VTE prophylaxis - PT/OT/ROM exercises - continue mobility protocols for pressure ulcer prophylaxis - Monitor hemodynamics closely - continue other care per attending / other consultants - discharge planning ongoing concurrently .... Re-evaluate in am & prn CONDITION: CRITICAL PROGNOSIS: GUARDED CODE STATUS: FULL CODE The high probability of a clinically significant, sudden or life-threatening deterioration of the [respiratory, cardiovascular, renal & neurologic] system(s) required my full and direct attention, intervention and personal management. The aggregate critical care time was [34] minutes without overlap. Time includes spent on; [x] Data Review and interpretation [x] Patient assessment and monitoring of vital signs [x] Documentation [x] Medication orders and management Subjective Date of service: 06/09/20 Principal diagnosis: Ac hypoxemic resp failure; COVID-19; pneumonia; CHF; Pulm HTN; OHS; DM II Interval history: Patient is seen today for: Ac hypoxemic resp failure; Coronavirus-19 infection; pneumonia; Pulmonary edema; Bilateral pleural effusions; CHF; Morbid obesity; pulmonary hypertension; OHS; DM II Seen and examined at bedside; 24hour events reviewed; nursing and respiratory care staff consulted; no adverse overnight events reported to me; resting peacefully in bed; remains on MVS; now tolerating PSV trials; nods head yes to pain question; RN reports residuals > 500 ml's and emesis overnight Objective Vital Signs - 12hr 06/08/20 06/08/20 06/08/20 23:30 23:40 23:50 Temperature Pulse Rate 91 H 87 92 H Pulse Rate [ From Monitor] Respiratory 17 19 18 Rate Blood Pressure 182/81 186/77 175/106 O2 Sat by Pulse 98 97 97 Oximetry 06/08/20 06/09/20 06/09/20 23:51 00:00 00:10 Temperature Pulse Rate 91 H 71 68 Pulse Rate [ 64 From Monitor] Respiratory 14 14 Rate Blood Pressure 175/106 152/56 152/56 O2 Sat by Pulse 97 97 Oximetry 06/09/20 06/09/20 06/09/20 00:20 00:29 00:30 Temperature Pulse Rate 67 67 67 Pulse Rate [ From Monitor] Respiratory 14 14 Rate Blood Pressure 144/52 142/47 142/47 O2 Sat by Pulse 97 97 97 Oximetry 06/09/20 06/09/20 06/09/20 00:40 00:50 01:00 Temperature Pulse Rate 73 89 87 Pulse Rate [ From Monitor] Respiratory 15 19 19 Rate Blood Pressure 142/47 163/80 163/80 O2 Sat by Pulse 96 96 96 Oximetry 06/09/20 06/09/20 06/09/20 01:10 01:20 01:30 Temperature Pulse Rate 83 88 87 Pulse Rate [ From Monitor] Respiratory 18 19 19 Rate Blood Pressure 170/75 176/67 180/69 O2 Sat by Pulse 96 96 97 Oximetry 06/09/20 06/09/20 06/09/20 01:40 01:50 02:00 Temperature Pulse Rate 85 83 85 Pulse Rate [ From Monitor] Respiratory 17 18 19 Rate Blood Pressure 180/69 165/70 153/68 O2 Sat by Pulse 97 96 96 Oximetry 06/09/20 06/09/20 06/09/20 02:10 02:20 02:30 Temperature Pulse Rate 87 90 85 Pulse Rate [ From Monitor] Respiratory 19 18 18 Rate Blood Pressure 153/68 160/70 163/60 O2 Sat by Pulse 97 96 95 Oximetry 06/09/20 06/09/20 06/09/20 02:40 02:50 03:00 Temperature Pulse Rate 75 76 73 Pulse Rate [ From Monitor] Respiratory 15 16 14 Rate Blood Pressure 163/60 141/49 143/50 O2 Sat by Pulse 91 91 91 Oximetry 06/09/20 06/09/20 06/09/20 03:10 03:20 03:30 Temperature Pulse Rate 73 76 79 Pulse Rate [ From Monitor] Respiratory 15 15 17 Rate Blood Pressure 143/50 151/55 151/55 O2 Sat by Pulse 91 91 92 Oximetry 06/09/20 06/09/20 06/09/20 03:34 03:40 03:50 Temperature 99.8 F H Pulse Rate 94 H 93 H Pulse Rate [ From Monitor] Respiratory 16 21 Rate Blood Pressure 168/62 200/173 O2 Sat by Pulse 93 93 Oximetry 06/09/20 06/09/20 06/09/20 03:54 04:00 04:10 Temperature Pulse Rate 91 H 87 89 Pulse Rate [ 91 H From Monitor] Respiratory 19 18 Rate Blood Pressure 159/61 159/61 O2 Sat by Pulse 92 92 100 Oximetry 06/09/20 06/09/20 06/09/20 04:20 04:30 04:40 Temperature Pulse Rate 80 80 82 Pulse Rate [ From Monitor] Respiratory 17 16 17 Rate Blood Pressure 159/54 154/59 154/59 O2 Sat by Pulse 97 97 96 Oximetry 06/09/20 06/09/20 06/09/20 04:50 05:00 05:10 Temperature Pulse Rate 84 93 H 95 H Pulse Rate [ From Monitor] Respiratory 18 18 17 Rate Blood Pressure 156/54 156/54 156/54 O2 Sat by Pulse 96 97 97 Oximetry 06/09/20 06/09/20 06/09/20 05:20 05:30 05:40 Temperature Pulse Rate 92 H 95 H 88 Pulse Rate [ From Monitor] Respiratory 18 20 19 Rate Blood Pressure 169/92 181/71 181/71 O2 Sat by Pulse 96 95 94 Oximetry 06/09/20 06/09/20 06/09/20 05:50 06:00 06:10 Temperature Pulse Rate 88 88 91 H Pulse Rate [ From Monitor] Respiratory 18 20 20 Rate Blood Pressure 162/58 171/65 181/71 O2 Sat by Pulse 94 94 94 Oximetry 06/09/20 06/09/20 06/09/20 06:20 06:30 06:31 Temperature Pulse Rate 87 90 87 Pulse Rate [ From Monitor] Respiratory 17 20 Rate Blood Pressure 169/60 145/54 166/69 O2 Sat by Pulse 94 94 Oximetry 06/09/20 06/09/20 06/09/20 06:40 06:50 07:00 Temperature Pulse Rate 97 H 82 94 H Pulse Rate [ From Monitor] Respiratory 21 17 22 Rate Blood Pressure 145/54 163/60 164/67 O2 Sat by Pulse 97 96 97 Oximetry 06/09/20 06/09/20 06/09/20 07:10 07:18 07:20 Temperature Pulse Rate 92 H 90 93 H Pulse Rate [ From Monitor] Respiratory 21 18 Rate Blood Pressure 164/67 167/65 O2 Sat by Pulse 97 94 97 Oximetry 06/09/20 06/09/20 06/09/20 07:30 07:40 07:50 Temperature Pulse Rate 92 H 91 H 85 Pulse Rate [ From Monitor] Respiratory 22 17 18 Rate Blood Pressure 166/58 167/65 143/62 O2 Sat by Pulse 97 97 97 Oximetry 06/09/20 06/09/20 06/09/20 08:00 08:10 08:20 Temperature 101.4 F H Pulse Rate 81 81 87 Pulse Rate [ 66 From Monitor] Respiratory 21 17 18 Rate Blood Pressure 143/59 166/58 153/63 O2 Sat by Pulse 96 96 98 Oximetry 06/09/20 06/09/20 06/09/20 08:30 08:40 08:50 Temperature Pulse Rate 95 H 94 H 99 H Pulse Rate [ From Monitor] Respiratory 18 21 18 Rate Blood Pressure 153/63 128/104 174/65 O2 Sat by Pulse 98 97 94 Oximetry 06/09/20 06/09/20 06/09/20 08:58 09:00 09:10 Temperature Pulse Rate 85 92 H Pulse Rate [ From Monitor] Respiratory 18 17 18 Rate Blood Pressure 174/65 174/65 O2 Sat by Pulse 96 96 Oximetry 06/09/20 06/09/20 06/09/20 09:20 09:30 09:40 Temperature Pulse Rate 87 89 93 H Pulse Rate [ From Monitor] Respiratory 20 17 20 Rate Blood Pressure 166/43 151/114 151/114 O2 Sat by Pulse 97 97 97 Oximetry 06/09/20 06/09/20 06/09/20 09:46 09:50 10:00 Temperature Pulse Rate 92 H 91 H 89 Pulse Rate [ From Monitor] Respiratory 16 19 Rate Blood Pressure 176/62 176/62 160/55 O2 Sat by Pulse 97 97 Oximetry 06/09/20 06/09/20 06/09/20 10:10 10:20 10:30 Temperature Pulse Rate 90 94 H 97 H Pulse Rate [ From Monitor] Respiratory 18 19 19 Rate Blood Pressure 160/55 156/59 174/63 O2 Sat by Pulse 97 98 98 Oximetry 06/09/20 06/09/20 06/09/20 10:40 10:50 11:00 Temperature Pulse Rate 93 H 96 H 93 H Pulse Rate [ From Monitor] Respiratory 20 19 19 Rate Blood Pressure 174/63 157/74 174/54 O2 Sat by Pulse 97 97 97 Oximetry 06/09/20 06/09/20 11:04 11:10 Temperature Pulse Rate 94 H Pulse Rate [ From Monitor] Respiratory 20 18 Rate Blood Pressure 174/54 O2 Sat by Pulse 96 97 Oximetry Constitutional: no acute distress, other (elderly looking obese female riding set rate on MVS at rest) Eyes: non-icteric ENT: oropharynx moist, other (ETT 23 cm AYAN) Neck: supple, no lymphadenopathy, no JVD, other (ETT 23 cm AYAN) Effort: mildly labored Ascultation: Bilateral: diminished breath sounds, rhonchi Percussion: Bilateral: not dull Cardiovascular: regular rate and rhythm Gastrointestinal: normoactive bowel sounds, soft, non-tender, non-distended Integumentary: normal Extremities: no cyanosis, no edema, pink and warm, pulses normal, no ischemia or petechiae Neurologic: non-focal exam (grossly), pupils equal and round, unable to assess Psychiatric: other (unable to assess re: AMS) CBC and BMP: 06/09/20 05:16 06/10/20 07:40 ABG, PT/INR, D-dimer: ABG ABG pH 7.317 pH Units (7.350-7.450) L 06/07/20 04:54 ABG pCO2 41.9 mm Hg 06/07/20 04:54 ABG pO2 71.4 mm Hg (80.0-90.0) L 06/07/20 04:54 ABG O2 Saturation 94.3 % (95.0-99.0) L 06/07/20 04:54 PT/INR, D-dimer PT 14.2 Sec. (12.2-14.9) 05/29/20 15:10 INR 1.08 (0.87-1.13) 05/29/20 15:10 D-Dimer 414.52 ng/mlDDU (0-234) H 06/04/20 04:19 Abnormal lab findings: Abnormal Labs 05/28/20 05/28/20 05/28/20 13:29 13:47 13:47 WBC RBC Hgb Hct RDW 15.3 H Lymph % (Auto) [place] % (Auto) Lymph # [place] # Seg Neutrophils % Seg Neuts % (Manual) Lymphocytes % (Manual) Seg Neutrophils # Seg Neutrophils # Man Lymphocytes # (Manual) Monocytes # (Manual) D-Dimer Heparin Anti-Xa Level ABG pH ABG pO2 ABG HCO3 ABG O2 Saturation ABG Base Excess ABG Hemoglobin VBG pH Oxyhemoglobin Sodium Potassium 6.6 H* Chloride 109.2 H Carbon Dioxide 17 L BUN 29 H Creatinine 1.3 H Glucose 265 H POC Glucose 248 H Lactic Acid Calcium 8.1 L AST 63 H Alkaline Phosphatase Lactate Dehydrogenase Total Creatine Kinase 301 H CK-MB (CK-2) 4.3 H C-Reactive Protein Total Protein 5.4 L Albumin 2.6 L Urine WBC (Auto) Urine Creatinine Urine Total Protein Coronavirus (PCR) 05/28/20 05/28/20 05/28/20 13:47 13:47 14:46 WBC RBC Hgb Hct RDW Lymph % (Auto) [place] % (Auto) Lymph # [place] # Seg Neutrophils % Seg Neuts % (Manual) Lymphocytes % (Manual) Seg Neutrophils # Seg Neutrophils # Man Lymphocytes # (Manual) Monocytes # (Manual) D-Dimer Heparin Anti-Xa Level ABG pH ABG pO2 ABG HCO3 ABG O2 Saturation ABG Base Excess ABG Hemoglobin VBG pH 7.152 L* Oxyhemoglobin Sodium Potassium 7.2 H* Chloride Carbon Dioxide BUN Creatinine Glucose POC Glucose Lactic Acid 3.40 H* Calcium AST Alkaline Phosphatase Lactate Dehydrogenase Total Creatine Kinase CK-MB (CK-2) C-Reactive Protein Total Protein Albumin Urine WBC (Auto) Urine Creatinine Urine Total Protein Coronavirus (PCR) 05/28/20 05/28/20 05/28/20 15:33 15:33 15:51 WBC RBC Hgb Hct RDW Lymph % (Auto) [place] % (Auto) Lymph # [place] # Seg Neutrophils % Seg Neuts % (Manual) Lymphocytes % (Manual) Seg Neutrophils # Seg Neutrophils # Man Lymphocytes # (Manual) Monocytes # (Manual) D-Dimer 8780.43 H Heparin Anti-Xa Level ABG pH 7.284 L ABG pO2 273.0 H ABG HCO3 ABG O2 Saturation 99.4 H ABG Base Excess -6.1 L ABG Hemoglobin 17.2 H VBG pH Oxyhemoglobin Sodium Potassium Chloride Carbon Dioxide BUN Creatinine Glucose 152 H POC Glucose Lactic Acid Calcium AST Alkaline Phosphatase Lactate Dehydrogenase 365 H Total Creatine Kinase CK-MB (CK-2) C-Reactive Protein Total Protein Albumin Urine WBC (Auto) Urine Creatinine Urine Total Protein Coronavirus (PCR) 05/28/20 05/28/20 05/28/20 16:30 20:41 23:20 WBC RBC Hgb Hct RDW Lymph % (Auto) [place] % (Auto) Lymph # [place] # Seg Neutrophils % Seg Neuts % (Manual) Lymphocytes % (Manual) Seg Neutrophils # Seg Neutrophils # Man Lymphocytes # (Manual) Monocytes # (Manual) D-Dimer Heparin Anti-Xa Level ABG pH ABG pO2 ABG HCO3 ABG O2 Saturation ABG Base Excess ABG Hemoglobin VBG pH Oxyhemoglobin Sodium Potassium Chloride Carbon Dioxide BUN Creatinine Glucose POC Glucose 225 H 224 H Lactic Acid Calcium AST Alkaline Phosphatase Lactate Dehydrogenase Total Creatine Kinase CK-MB (CK-2) C-Reactive Protein Total Protein Albumin Urine WBC (Auto) 17.0 H Urine Creatinine Urine Total Protein Coronavirus (PCR) 05/28/20 05/29/20 05/29/20 Unknown 04:35 04:43 WBC RBC 3.48 L Hgb 9.8 L Hct 29.4 L RDW 16.0 H Lymph % (Auto) 7.4 L [place] % (Auto) Lymph # 0.7 L [place] # Seg Neutrophils % 89.1 H Seg Neuts % (Manual) Lymphocytes % (Manual) Seg Neutrophils # 8.1 H Seg Neutrophils # Man Lymphocytes # (Manual) Monocytes # (Manual) D-Dimer Heparin Anti-Xa Level ABG pH ABG pO2 ABG HCO3 19.3 L ABG O2 Saturation ABG Base Excess -4.5 L ABG Hemoglobin 9.7 L VBG pH Oxyhemoglobin Sodium Potassium Chloride Carbon Dioxide BUN Creatinine Glucose POC Glucose Lactic Acid Calcium AST Alkaline Phosphatase Lactate Dehydrogenase Total Creatine Kinase CK-MB (CK-2) C-Reactive Protein Total Protein Albumin Urine WBC (Auto) Urine Creatinine Urine Total Protein Coronavirus (PCR) Positive A 05/29/20 05/29/20 05/29/20 04:43 15:10 17:17 WBC RBC Hgb 9.3 L Hct 28.7 L RDW Lymph % (Auto) [place] % (Auto) Lymph # [place] # Seg Neutrophils % Seg Neuts % (Manual) Lymphocytes % (Manual) Seg Neutrophils # Seg Neutrophils # Man Lymphocytes # (Manual) Monocytes # (Manual) D-Dimer Heparin Anti-Xa Level ABG pH ABG pO2 ABG HCO3 ABG O2 Saturation ABG Base Excess ABG Hemoglobin VBG pH Oxyhemoglobin Sodium Potassium Chloride 110.2 H Carbon Dioxide 18 L BUN 32 H Creatinine 1.4 H Glucose 180 H POC Glucose 147 H Lactic Acid Calcium AST Alkaline Phosphatase Lactate Dehydrogenase Total Creatine Kinase CK-MB (CK-2) C-Reactive Protein Total Protein Albumin Urine WBC (Auto) Urine Creatinine Urine Total Protein Coronavirus (PCR) 05/30/20 05/30/20 05/30/20 00:08 00:12 04:15 WBC RBC Hgb Hct RDW Lymph % (Auto) [place] % (Auto) Lymph # [place] # Seg Neutrophils % Seg Neuts % (Manual) Lymphocytes % (Manual) Seg Neutrophils # Seg Neutrophils # Man Lymphocytes # (Manual) Monocytes # (Manual) D-Dimer Heparin Anti-Xa Level 0.71 H ABG pH 7.460 H ABG pO2 106.0 H ABG HCO3 18.9 L ABG O2 Saturation ABG Base Excess -4.4 L ABG Hemoglobin 6.8 L VBG pH Oxyhemoglobin Sodium Potassium Chloride Carbon Dioxide BUN Creatinine Glucose POC Glucose 195 H Lactic Acid Calcium AST Alkaline Phosphatase Lactate Dehydrogenase Total Creatine Kinase CK-MB (CK-2) C-Reactive Protein Total Protein Albumin Urine WBC (Auto) Urine Creatinine Urine Total Protein Coronavirus (PCR) 05/30/20 05/30/20 05/30/20 06:07 08:37 12:33 WBC RBC Hgb Hct RDW Lymph % (Auto) [place] % (Auto) Lymph # [place] # Seg Neutrophils % Seg Neuts % (Manual) Lymphocytes % (Manual) Seg Neutrophils # Seg Neutrophils # Man Lymphocytes # (Manual) Monocytes # (Manual) D-Dimer Heparin Anti-Xa Level 0.85 H ABG pH ABG pO2 ABG HCO3 ABG O2 Saturation ABG Base Excess ABG Hemoglobin VBG pH Oxyhemoglobin Sodium Potassium Chloride Carbon Dioxide BUN Creatinine Glucose POC Glucose 182 H 187 H Lactic Acid Calcium AST Alkaline Phosphatase Lactate Dehydrogenase Total Creatine Kinase CK-MB (CK-2) C-Reactive Protein Total Protein Albumin Urine WBC (Auto) Urine Creatinine Urine Total Protein Coronavirus (PCR) 05/30/20 05/30/20 05/30/20 15:58 17:57 23:36 WBC RBC Hgb Hct RDW Lymph % (Auto) [place] % (Auto) Lymph # [place] # Seg Neutrophils % Seg Neuts % (Manual) Lymphocytes % (Manual) Seg Neutrophils # Seg Neutrophils # Man Lymphocytes # (Manual) Monocytes # (Manual) D-Dimer Heparin Anti-Xa Level 1.03 H ABG pH ABG pO2 ABG HCO3 ABG O2 Saturation ABG Base Excess ABG Hemoglobin VBG pH Oxyhemoglobin Sodium Potassium Chloride Carbon Dioxide BUN Creatinine Glucose POC Glucose 208 H 185 H Lactic Acid Calcium AST Alkaline Phosphatase Lactate Dehydrogenase Total Creatine Kinase CK-MB (CK-2) C-Reactive Protein Total Protein Albumin Urine WBC (Auto) Urine Creatinine Urine Total Protein Coronavirus (PCR) 05/31/20 05/31/20 05/31/20 02:16 03:55 06:16 WBC RBC Hgb 9.2 L Hct 27.5 L RDW Lymph % (Auto) [place] % (Auto) Lymph # [place] # Seg Neutrophils % Seg Neuts % (Manual) Lymphocytes % (Manual) Seg Neutrophils # Seg Neutrophils # Man Lymphocytes # (Manual) Monocytes # (Manual) D-Dimer Heparin Anti-Xa Level ABG pH ABG pO2 94.7 H ABG HCO3 18.6 L ABG O2 Saturation ABG Base Excess -5.5 L ABG Hemoglobin 7.9 L VBG pH Oxyhemoglobin Sodium Potassium Chloride Carbon Dioxide BUN Creatinine Glucose POC Glucose 160 H Lactic Acid Calcium AST Alkaline Phosphatase Lactate Dehydrogenase Total Creatine Kinase CK-MB (CK-2) C-Reactive Protein Total Protein Albumin Urine WBC (Auto) Urine Creatinine Urine Total Protein Coronavirus (PCR) 05/31/20 05/31/20 05/31/20 12:20 13:03 18:13 WBC RBC Hgb Hct RDW Lymph % (Auto) [place] % (Auto) Lymph # [place] # Seg Neutrophils % Seg Neuts % (Manual) Lymphocytes % (Manual) Seg Neutrophils # Seg Neutrophils # Man Lymphocytes # (Manual) Monocytes # (Manual) D-Dimer Heparin Anti-Xa Level ABG pH ABG pO2 ABG HCO3 ABG O2 Saturation ABG Base Excess ABG Hemoglobin VBG pH Oxyhemoglobin Sodium Potassium Chloride Carbon Dioxide 18 L BUN 48 H Creatinine 1.6 H Glucose 115 H POC Glucose 128 H 159 H Lactic Acid Calcium 8.3 L AST Alkaline Phosphatase Lactate Dehydrogenase Total Creatine Kinase CK-MB (CK-2) C-Reactive Protein Total Protein 5.4 L Albumin 2.4 L Urine WBC (Auto) Urine Creatinine Urine Total Protein Coronavirus (PCR) 05/31/20 06/01/20 06/01/20 23:51 04:00 05:48 WBC RBC Hgb Hct RDW Lymph % (Auto) [place] % (Auto) Lymph # [place] # Seg Neutrophils % Seg Neuts % (Manual) Lymphocytes % (Manual) Seg Neutrophils # Seg Neutrophils # Man Lymphocytes # (Manual) Monocytes # (Manual) D-Dimer Heparin Anti-Xa Level ABG pH ABG pO2 109.8 H ABG HCO3 18.8 L ABG O2 Saturation ABG Base Excess -5.9 L ABG Hemoglobin 7.8 L VBG pH Oxyhemoglobin Sodium Potassium Chloride Carbon Dioxide BUN Creatinine Glucose POC Glucose 171 H 133 H Lactic Acid Calcium AST Alkaline Phosphatase Lactate Dehydrogenase Total Creatine Kinase CK-MB (CK-2) C-Reactive Protein Total Protein Albumin Urine WBC (Auto) Urine Creatinine Urine Total Protein Coronavirus (PCR) 06/01/20 06/01/20 06/02/20 12:28 17:29 00:08 WBC RBC Hgb Hct RDW Lymph % (Auto) [place] % (Auto) Lymph # [place] # Seg Neutrophils % Seg Neuts % (Manual) Lymphocytes % (Manual) Seg Neutrophils # Seg Neutrophils # Man Lymphocytes # (Manual) Monocytes # (Manual) D-Dimer Heparin Anti-Xa Level ABG pH ABG pO2 ABG HCO3 ABG O2 Saturation ABG Base Excess ABG Hemoglobin VBG pH Oxyhemoglobin Sodium Potassium Chloride Carbon Dioxide BUN Creatinine Glucose POC Glucose 199 H 209 H 162 H Lactic Acid Calcium AST Alkaline Phosphatase Lactate Dehydrogenase Total Creatine Kinase CK-MB (CK-2) C-Reactive Protein Total Protein Albumin Urine WBC (Auto) Urine Creatinine Urine Total Protein Coronavirus (PCR) 06/02/20 06/02/20 06/02/20 04:20 04:20 04:44 WBC RBC Hgb 10.0 L Hct RDW Lymph % (Auto) [place] % (Auto) Lymph # [place] # Seg Neutrophils % Seg Neuts % (Manual) Lymphocytes % (Manual) Seg Neutrophils # Seg Neutrophils # Man Lymphocytes # (Manual) Monocytes # (Manual) D-Dimer Heparin Anti-Xa Level 0.10 L ABG pH ABG pO2 150.6 H ABG HCO3 ABG O2 Saturation ABG Base Excess -4.1 L ABG Hemoglobin 11.8 L VBG pH Oxyhemoglobin Sodium Potassium Chloride Carbon Dioxide BUN Creatinine Glucose POC Glucose Lactic Acid Calcium AST Alkaline Phosphatase Lactate Dehydrogenase Total Creatine Kinase CK-MB (CK-2) C-Reactive Protein Total Protein Albumin Urine WBC (Auto) Urine Creatinine Urine Total Protein Coronavirus (PCR) 06/02/20 06/02/20 06/02/20 05:53 12:04 13:49 WBC RBC Hgb Hct RDW Lymph % (Auto) [place] % (Auto) Lymph # [place] # Seg Neutrophils % Seg Neuts % (Manual) Lymphocytes % (Manual) Seg Neutrophils # Seg Neutrophils # Man Lymphocytes # (Manual) Monocytes # (Manual) D-Dimer Heparin Anti-Xa Level 0.28 L ABG pH ABG pO2 ABG HCO3 ABG O2 Saturation ABG Base Excess ABG Hemoglobin VBG pH Oxyhemoglobin Sodium Potassium Chloride Carbon Dioxide BUN Creatinine Glucose POC Glucose 149 H 220 H Lactic Acid Calcium AST Alkaline Phosphatase Lactate Dehydrogenase Total Creatine Kinase CK-MB (CK-2) C-Reactive Protein Total Protein Albumin Urine WBC (Auto) Urine Creatinine Urine Total Protein Coronavirus (PCR) 06/02/20 06/02/20 06/03/20 13:49 18:31 00:42 WBC RBC Hgb Hct RDW Lymph % (Auto) [place] % (Auto) Lymph # [place] # Seg Neutrophils % Seg Neuts % (Manual) Lymphocytes % (Manual) Seg Neutrophils # Seg Neutrophils # Man Lymphocytes # (Manual) Monocytes # (Manual) D-Dimer 769.68 H Heparin Anti-Xa Level ABG pH ABG pO2 ABG HCO3 ABG O2 Saturation ABG Base Excess ABG Hemoglobin VBG pH Oxyhemoglobin Sodium Potassium Chloride Carbon Dioxide BUN Creatinine Glucose POC Glucose 225 H 212 H Lactic Acid Calcium AST Alkaline Phosphatase Lactate Dehydrogenase Total Creatine Kinase CK-MB (CK-2) C-Reactive Protein Total Protein Albumin Urine WBC (Auto) Urine Creatinine Urine Total Protein Coronavirus (PCR) 06/03/20 06/03/20 06/03/20 05:16 05:16 05:25 WBC 11.4 H RBC Hgb Hct RDW 16.4 H Lymph % (Auto) [place] % (Auto) Lymph # [place] # Seg Neutrophils % Seg Neuts % (Manual) Lymphocytes % (Manual) Seg Neutrophils # Seg Neutrophils # Man Lymphocytes # (Manual) Monocytes # (Manual) D-Dimer Heparin Anti-Xa Level ABG pH ABG pO2 160.9 H ABG HCO3 19.4 L ABG O2 Saturation ABG Base Excess -4.9 L ABG Hemoglobin 7.0 L VBG pH Oxyhemoglobin Sodium Potassium Chloride Carbon Dioxide 18 L BUN 65 H Creatinine 2.0 H Glucose 175 H POC Glucose Lactic Acid Calcium 8.0 L AST Alkaline Phosphatase Lactate Dehydrogenase Total Creatine Kinase CK-MB (CK-2) C-Reactive Protein Total Protein 5.5 L Albumin 2.2 L Urine WBC (Auto) Urine Creatinine Urine Total Protein Coronavirus (PCR) 06/03/20 06/03/20 06/03/20 06:07 11:58 18:24 WBC RBC Hgb Hct RDW Lymph % (Auto) [place] % (Auto) Lymph # [place] # Seg Neutrophils % Seg Neuts % (Manual) Lymphocytes % (Manual) Seg Neutrophils # Seg Neutrophils # Man Lymphocytes # (Manual) Monocytes # (Manual) D-Dimer Heparin Anti-Xa Level ABG pH ABG pO2 ABG HCO3 ABG O2 Saturation ABG Base Excess ABG Hemoglobin VBG pH Oxyhemoglobin Sodium Potassium Chloride Carbon Dioxide BUN Creatinine Glucose POC Glucose 177 H 163 H 211 H Lactic Acid Calcium AST Alkaline Phosphatase Lactate Dehydrogenase Total Creatine Kinase CK-MB (CK-2) C-Reactive Protein Total Protein Albumin Urine WBC (Auto) Urine Creatinine Urine Total Protein Coronavirus (PCR) 06/03/20 06/03/20 06/04/20 21:50 Unknown 00:26 WBC RBC Hgb Hct RDW Lymph % (Auto) [place] % (Auto) Lymph # [place] # Seg Neutrophils % Seg Neuts % (Manual) Lymphocytes % (Manual) Seg Neutrophils # Seg Neutrophils # Man Lymphocytes # (Manual) Monocytes # (Manual) D-Dimer Heparin Anti-Xa Level ABG pH ABG pO2 ABG HCO3 ABG O2 Saturation ABG Base Excess ABG Hemoglobin VBG pH Oxyhemoglobin Sodium 135 L Potassium Chloride Carbon Dioxide 18 L BUN Creatinine Glucose POC Glucose 241 H Lactic Acid Calcium AST Alkaline Phosphatase Lactate Dehydrogenase Total Creatine Kinase CK-MB (CK-2) C-Reactive Protein Total Protein Albumin Urine WBC (Auto) 11.0 H Urine Creatinine Urine Total Protein Coronavirus (PCR) 06/04/20 06/04/20 06/04/20 03:35 04:19 04:19 WBC RBC 3.15 L Hgb 8.9 L Hct 26.8 L D RDW 15.9 H Lymph % (Auto) 6.0 L [place] % (Auto) Lymph # 0.6 L [place] # Seg Neutrophils % 86.6 H Seg Neuts % (Manual) Lymphocytes % (Manual) Seg Neutrophils # 9.1 H Seg Neutrophils # Man Lymphocytes # (Manual) Monocytes # (Manual) D-Dimer Heparin Anti-Xa Level ABG pH 7.331 L ABG pO2 ABG HCO3 ABG O2 Saturation ABG Base Excess -4.7 L ABG Hemoglobin 11.0 L VBG pH Oxyhemoglobin 93.9 L Sodium 136 L Potassium Chloride Carbon Dioxide 20 L BUN 73 H Creatinine 2.0 H Glucose 192 H POC Glucose Lactic Acid Calcium 8.0 L AST Alkaline Phosphatase Lactate Dehydrogenase 271 H Total Creatine Kinase CK-MB (CK-2) C-Reactive Protein 2.20 H Total Protein 5.0 L Albumin 2.0 L Urine WBC (Auto) Urine Creatinine Urine Total Protein Coronavirus (PCR) 06/04/20 06/04/20 06/04/20 04:19 05:51 11:48 WBC RBC Hgb Hct RDW Lymph % (Auto) Campbell % (Auto) Lymph # Campbell # Seg Neutrophils % Seg Neuts % (Manual) Lymphocytes % (Manual) Seg Neutrophils # Seg Neutrophils # Man Lymphocytes # (Manual) Monocytes # (Manual) D-Dimer 414.52 H Heparin Anti-Xa Level ABG pH ABG pO2 ABG HCO3 ABG O2 Saturation ABG Base Excess ABG Hemoglobin VBG pH Oxyhemoglobin Sodium Potassium Chloride Carbon Dioxide BUN Creatinine Glucose POC Glucose 179 H 213 H Lactic Acid Calcium AST Alkaline Phosphatase Lactate Dehydrogenase Total Creatine Kinase CK-MB (CK-2) C-Reactive Protein Total Protein Albumin Urine WBC (Auto) Urine Creatinine Urine Total Protein Coronavirus (PCR) 06/04/20 06/05/20 06/05/20 18:25 00:16 05:00 WBC RBC Hgb Hct RDW Lymph % (Auto) Campbell % (Auto) Lymph # Campbell # Seg Neutrophils % Seg Neuts % (Manual) Lymphocytes % (Manual) Seg Neutrophils # Seg Neutrophils # Man Lymphocytes # (Manual) Monocytes # (Manual) D-Dimer Heparin Anti-Xa Level ABG pH 7.286 L ABG pO2 96.2 H ABG HCO3 ABG O2 Saturation ABG Base Excess -6.3 L ABG Hemoglobin 8.8 L VBG pH Oxyhemoglobin 94.8 L Sodium Potassium Chloride Carbon Dioxide BUN Creatinine Glucose POC Glucose 238 H 183 H Lactic Acid Calcium AST Alkaline Phosphatase Lactate Dehydrogenase Total Creatine Kinase CK-MB (CK-2) C-Reactive Protein Total Protein Albumin Urine WBC (Auto) Urine Creatinine Urine Total Protein Coronavirus (PCR) 06/05/20 06/05/20 06/05/20 05:39 07:25 07:25 WBC RBC 2.97 L Hgb 8.7 L Hct 25.7 L RDW 16.0 H Lymph % (Auto) 8.8 L Campbell % (Auto) 13.3 H Lymph # 0.8 L Campbell # 1.3 H Seg Neutrophils % 77.3 H Seg Neuts % (Manual) Lymphocytes % (Manual) Seg Neutrophils # Seg Neutrophils # Man Lymphocytes # (Manual) Monocytes # (Manual) D-Dimer Heparin Anti-Xa Level ABG pH ABG pO2 ABG HCO3 ABG O2 Saturation ABG Base Excess ABG Hemoglobin VBG pH Oxyhemoglobin Sodium 133 L Potassium Chloride Carbon Dioxide 17 L BUN 89 H Creatinine 2.8 H Glucose 176 H POC Glucose 149 H Lactic Acid Calcium 7.7 L AST Alkaline Phosphatase Lactate Dehydrogenase Total Creatine Kinase CK-MB (CK-2) C-Reactive Protein Total Protein 4.2 L Albumin 1.9 L Urine WBC (Auto) Urine Creatinine Urine Total Protein Coronavirus (PCR) 06/05/20 06/05/20 06/05/20 07:25 12:05 15:41 WBC RBC Hgb Hct RDW Lymph % (Auto) Campbell % (Auto) Lymph # Campbell # Seg Neutrophils % Seg Neuts % (Manual) Lymphocytes % (Manual) Seg Neutrophils # Seg Neutrophils # Man Lymphocytes # (Manual) Monocytes # (Manual) D-Dimer Heparin Anti-Xa Level 0.76 H 0.81 H ABG pH ABG pO2 ABG HCO3 ABG O2 Saturation ABG Base Excess ABG Hemoglobin VBG pH Oxyhemoglobin Sodium Potassium Chloride Carbon Dioxide BUN Creatinine Glucose POC Glucose 198 H Lactic Acid Calcium AST Alkaline Phosphatase Lactate Dehydrogenase Total Creatine Kinase CK-MB (CK-2) C-Reactive Protein Total Protein Albumin Urine WBC (Auto) Urine Creatinine Urine Total Protein Coronavirus (PCR) 06/05/20 06/05/20 06/06/20 18:08 23:25 04:00 WBC RBC Hgb Hct RDW Lymph % (Auto) Campbell % (Auto) Lymph # Campbell # Seg Neutrophils % Seg Neuts % (Manual) Lymphocytes % (Manual) Seg Neutrophils # Seg Neutrophils # Man Lymphocytes # (Manual) Monocytes # (Manual) D-Dimer Heparin Anti-Xa Level ABG pH ABG pO2 ABG HCO3 ABG O2 Saturation ABG Base Excess ABG Hemoglobin VBG pH Oxyhemoglobin Sodium Potassium Chloride Carbon Dioxide BUN Creatinine Glucose POC Glucose 223 H 169 H Lactic Acid Calcium AST Alkaline Phosphatase Lactate Dehydrogenase Total Creatine Kinase CK-MB (CK-2) C-Reactive Protein Total Protein Albumin Urine WBC (Auto) 15.0 H Urine Creatinine Urine Total Protein Coronavirus (PCR) 06/06/20 06/06/20 06/06/20 04:00 05:33 05:38 WBC RBC 2.97 L Hgb 8.7 L Hct 26.8 L RDW 16.8 H Lymph % (Auto) Campbell % (Auto) Lymph # Campbell # Seg Neutrophils % Seg Neuts % (Manual) Lymphocytes % (Manual) Seg Neutrophils # Seg Neutrophils # Man Lymphocytes # (Manual) Monocytes # (Manual) D-Dimer Heparin Anti-Xa Level ABG pH ABG pO2 ABG HCO3 ABG O2 Saturation ABG Base Excess ABG Hemoglobin VBG pH Oxyhemoglobin Sodium Potassium Chloride Carbon Dioxide BUN Creatinine Glucose POC Glucose 186 H Lactic Acid Calcium AST Alkaline Phosphatase Lactate Dehydrogenase Total Creatine Kinase CK-MB (CK-2) C-Reactive Protein Total Protein Albumin Urine WBC (Auto) Urine Creatinine 82.2 H Urine Total Protein 196 H Coronavirus (PCR) 06/06/20 06/06/20 06/06/20 05:38 12:25 17:03 WBC RBC Hgb Hct RDW Lymph % (Auto) Campbell % (Auto) Lymph # Campbell # Seg Neutrophils % Seg Neuts % (Manual) Lymphocytes % (Manual) Seg Neutrophils # Seg Neutrophils # Man Lymphocytes # (Manual) Monocytes # (Manual) D-Dimer Heparin Anti-Xa Level ABG pH ABG pO2 ABG HCO3 ABG O2 Saturation ABG Base Excess ABG Hemoglobin VBG pH Oxyhemoglobin Sodium 134 L Potassium 5.2 H Chloride Carbon Dioxide 18 L BUN 97 H Creatinine 2.5 H Glucose 193 H POC Glucose 239 H 252 H Lactic Acid Calcium 7.5 L AST Alkaline Phosphatase Lactate Dehydrogenase Total Creatine Kinase CK-MB (CK-2) C-Reactive Protein Total Protein 4.1 L Albumin 1.9 L Urine WBC (Auto) Urine Creatinine Urine Total Protein Coronavirus (PCR) 06/07/20 06/07/20 06/07/20 00:16 01:49 04:00 WBC RBC 2.91 L Hgb 8.4 L Hct 25.0 L RDW 16.1 H Lymph % (Auto) 5.7 L Campbell % (Auto) 10.5 H Lymph # 0.6 L Campbell # 1.1 H Seg Neutrophils % 83.6 H Seg Neuts % (Manual) Lymphocytes % (Manual) Seg Neutrophils # 9.1 H Seg Neutrophils # Man Lymphocytes # (Manual) Monocytes # (Manual) D-Dimer Heparin Anti-Xa Level 0.26 L ABG pH ABG pO2 ABG HCO3 ABG O2 Saturation ABG Base Excess ABG Hemoglobin VBG pH Oxyhemoglobin Sodium Potassium Chloride Carbon Dioxide BUN Creatinine Glucose POC Glucose 173 H Lactic Acid Calcium AST Alkaline Phosphatase Lactate Dehydrogenase Total Creatine Kinase CK-MB (CK-2) C-Reactive Protein Total Protein Albumin Urine WBC (Auto) Urine Creatinine Urine Total Protein Coronavirus (PCR) 06/07/20 06/07/20 06/07/20 04:00 04:54 05:51 WBC RBC Hgb Hct RDW Lymph % (Auto) Campbell % (Auto) Lymph # Campbell # Seg Neutrophils % Seg Neuts % (Manual) Lymphocytes % (Manual) Seg Neutrophils # Seg Neutrophils # Man Lymphocytes # (Manual) Monocytes # (Manual) D-Dimer Heparin Anti-Xa Level ABG pH 7.317 L ABG pO2 71.4 L ABG HCO3 ABG O2 Saturation 94.3 L ABG Base Excess -4.8 L ABG Hemoglobin 7.1 L VBG pH Oxyhemoglobin 92.2 L Sodium 133 L Potassium Chloride Carbon Dioxide 18 L BUN 100 H Creatinine 2.5 H Glucose 158 H POC Glucose 168 H Lactic Acid Calcium 7.6 L AST Alkaline Phosphatase Lactate Dehydrogenase Total Creatine Kinase CK-MB (CK-2) C-Reactive Protein Total Protein 4.7 L Albumin 2.0 L Urine WBC (Auto) Urine Creatinine Urine Total Protein Coronavirus (PCR) 06/07/20 06/07/20 06/07/20 12:03 17:17 20:10 WBC RBC Hgb Hct RDW Lymph % (Auto) Campbell % (Auto) Lymph # Campbell # Seg Neutrophils % Seg Neuts % (Manual) Lymphocytes % (Manual) Seg Neutrophils # Seg Neutrophils # Man Lymphocytes # (Manual) Monocytes # (Manual) D-Dimer Heparin Anti-Xa Level 0.17 L ABG pH ABG pO2 ABG HCO3 ABG O2 Saturation ABG Base Excess ABG Hemoglobin VBG pH Oxyhemoglobin Sodium Potassium Chloride Carbon Dioxide BUN Creatinine Glucose POC Glucose 276 H 281 H Lactic Acid Calcium AST Alkaline Phosphatase Lactate Dehydrogenase Total Creatine Kinase CK-MB (CK-2) C-Reactive Protein Total Protein Albumin Urine WBC (Auto) Urine Creatinine Urine Total Protein Coronavirus (PCR) 06/08/20 06/08/20 06/08/20 00:02 04:47 04:47 WBC 16.4 H RBC 3.07 L Hgb 8.6 L Hct 26.5 L RDW 16.3 H Lymph % (Auto) Campbell % (Auto) Lymph # Campbell # Seg Neutrophils % Seg Neuts % (Manual) 90.0 H Lymphocytes % (Manual) 3.0 L Seg Neutrophils # Seg Neutrophils # Man 14.8 H Lymphocytes # (Manual) 0.5 L Monocytes # (Manual) 1.1 H D-Dimer Heparin Anti-Xa Level ABG pH ABG pO2 ABG HCO3 ABG O2 Saturation ABG Base Excess ABG Hemoglobin VBG pH Oxyhemoglobin Sodium 129 L Potassium Chloride 95.6 L Carbon Dioxide 17 L BUN 106 H Creatinine 2.5 H Glucose 213 H POC Glucose 242 H Lactic Acid Calcium 7.6 L AST Alkaline Phosphatase Lactate Dehydrogenase Total Creatine Kinase CK-MB (CK-2) C-Reactive Protein Total Protein 5.0 L Albumin 2.1 L Urine WBC (Auto) Urine Creatinine Urine Total Protein Coronavirus (PCR) 06/08/20 06/08/20 06/08/20 05:40 11:55 17:54 WBC RBC Hgb Hct RDW Lymph % (Auto) Campbell % (Auto) Lymph # Campbell # Seg Neutrophils % Seg Neuts % (Manual) Lymphocytes % (Manual) Seg Neutrophils # Seg Neutrophils # Man Lymphocytes # (Manual) Monocytes # (Manual) D-Dimer Heparin Anti-Xa Level ABG pH ABG pO2 ABG HCO3 ABG O2 Saturation ABG Base Excess ABG Hemoglobin VBG pH Oxyhemoglobin Sodium Potassium Chloride Carbon Dioxide BUN Creatinine Glucose POC Glucose 221 H 218 H 163 H Lactic Acid Calcium AST Alkaline Phosphatase Lactate Dehydrogenase Total Creatine Kinase CK-MB (CK-2) C-Reactive Protein Total Protein Albumin Urine WBC (Auto) Urine Creatinine Urine Total Protein Coronavirus (PCR) 06/08/20 06/09/20 06/09/20 22:01 00:09 05:16 WBC 19.0 H RBC 3.35 L Hgb 9.2 L Hct 28.5 L RDW 16.3 H Lymph % (Auto) Campbell % (Auto) Lymph # Campbell # Seg Neutrophils % Seg Neuts % (Manual) 85.0 H Lymphocytes % (Manual) 7.0 L Seg Neutrophils # Seg Neutrophils # Man 16.2 H Lymphocytes # (Manual) Monocytes # (Manual) 1.3 H D-Dimer Heparin Anti-Xa Level ABG pH ABG pO2 ABG HCO3 ABG O2 Saturation ABG Base Excess ABG Hemoglobin VBG pH Oxyhemoglobin Sodium Potassium Chloride Carbon Dioxide BUN Creatinine Glucose POC Glucose 182 H 150 H Lactic Acid Calcium AST Alkaline Phosphatase Lactate Dehydrogenase Total Creatine Kinase CK-MB (CK-2) C-Reactive Protein Total Protein Albumin Urine WBC (Auto) Urine Creatinine Urine Total Protein Coronavirus (PCR) 06/09/20 06/09/20 05:16 05:24 WBC RBC Hgb Hct RDW Lymph % (Auto) Campbell % (Auto) Lymph # Campbell # Seg Neutrophils % Seg Neuts % (Manual) Lymphocytes % (Manual) Seg Neutrophils # Seg Neutrophils # Man Lymphocytes # (Manual) Monocytes # (Manual) D-Dimer Heparin Anti-Xa Level ABG pH ABG pO2 ABG HCO3 ABG O2 Saturation ABG Base Excess ABG Hemoglobin VBG pH Oxyhemoglobin Sodium 133 L Potassium Chloride Carbon Dioxide 19 L BUN 109 H Creatinine 2.1 H Glucose 133 H POC Glucose 128 H Lactic Acid Calcium 7.7 L AST Alkaline Phosphatase < 5 L Lactate Dehydrogenase Total Creatine Kinase CK-MB (CK-2) C-Reactive Protein Total Protein 4.6 L Albumin < 0.2 L Urine WBC (Auto) Urine Creatinine Urine Total Protein Coronavirus (PCR) Chest x-ray: other (none today) Allied health notes reviewed: nursing
[2020-06-09] MEDS: fentaNYL 100 MCG/2 ML INJ IV PRN ×2 (13:28→20:27)
[2020-06-09] MEDS: HEPARIN/ 0.45% NACL DRIP 25,000 UNIT/500 ML BAG IV SCH (13:29)
--- NOTE | 2020-06-09 13:31 | Progress Note ---
Assessment and Plan - Patient Problems (1) Acute kidney injury (AVANI) with acute tubular necrosis (ATN) Current Visit: Yes Status: Acute Plan to address problem: renal function remained stable with slowly improving renal parameters. This still remains no acute indication for renal replacement therapy. Will monitor closely. Will order for Lasix 60 mg IV twice a day. We will monitor urine output with aforementioned diuretic regimen. (2) Acute hypoxemic respiratory failure Current Visit: Yes Status: Acute Plan to address problem: management per pulmonary team. Remains intubated at this time. (3) Pneumonia due to COVID-19 virus Current Visit: Yes Status: Acute Plan to address problem: management per ID recommendations. (4) Hyperkalemia Current Visit: Yes Status: Acute Plan to address problem: in the setting of acute kidney injury. Current labs show stable potassium levels. We will be monitoring very closely. Subjective Date of service: 06/09/20 Principal diagnosis: Ac hypoxemic resp failure; COVID-19; pneumonia; CHF; Pulm HTN; OHS; DM II Interval history: patient remains intubated at this time. No acute events overnight per nursing staff. Renal function remained stable. She received 1 dose of Lasix 40 mg IV yesterday. Objective - Exam Narrative Exam: patient was not directly examined secondary to preservation of PPE - Vital Signs Vital signs: Vital Signs - 12hr 06/09/20 06/09/20 06/09/20 01:30 01:40 01:50 Temperature Pulse Rate 87 85 83 Pulse Rate [ From Monitor] Respiratory 19 17 18 Rate Blood Pressure 180/69 180/69 165/70 O2 Sat by Pulse 97 97 96 Oximetry 06/09/20 06/09/20 06/09/20 02:00 02:10 02:20 Temperature Pulse Rate 85 87 90 Pulse Rate [ From Monitor] Respiratory 19 19 18 Rate Blood Pressure 153/68 153/68 160/70 O2 Sat by Pulse 96 97 96 Oximetry 06/09/20 06/09/20 06/09/20 02:30 02:40 02:50 Temperature Pulse Rate 85 75 76 Pulse Rate [ From Monitor] Respiratory 18 15 16 Rate Blood Pressure 163/60 163/60 141/49 O2 Sat by Pulse 95 91 91 Oximetry 06/09/20 06/09/20 06/09/20 03:00 03:10 03:20 Temperature Pulse Rate 73 73 76 Pulse Rate [ From Monitor] Respiratory 14 15 15 Rate Blood Pressure 143/50 143/50 151/55 O2 Sat by Pulse 91 91 91 Oximetry 06/09/20 06/09/20 06/09/20 03:30 03:34 03:40 Temperature 99.8 F H Pulse Rate 79 94 H Pulse Rate [ From Monitor] Respiratory 17 16 Rate Blood Pressure 151/55 168/62 O2 Sat by Pulse 92 93 Oximetry 06/09/20 06/09/20 06/09/20 03:50 03:54 04:00 Temperature Pulse Rate 93 H 91 H 87 Pulse Rate [ 91 H From Monitor] Respiratory 21 19 Rate Blood Pressure 200/173 159/61 O2 Sat by Pulse 93 92 92 Oximetry 06/09/20 06/09/20 06/09/20 04:10 04:20 04:30 Temperature Pulse Rate 89 80 80 Pulse Rate [ From Monitor] Respiratory 18 17 16 Rate Blood Pressure 159/61 159/54 154/59 O2 Sat by Pulse 100 97 97 Oximetry 06/09/20 06/09/20 06/09/20 04:40 04:50 05:00 Temperature Pulse Rate 82 84 93 H Pulse Rate [ From Monitor] Respiratory 17 18 18 Rate Blood Pressure 154/59 156/54 156/54 O2 Sat by Pulse 96 96 97 Oximetry 06/09/20 06/09/20 06/09/20 05:10 05:20 05:30 Temperature Pulse Rate 95 H 92 H 95 H Pulse Rate [ From Monitor] Respiratory 17 18 20 Rate Blood Pressure 156/54 169/92 181/71 O2 Sat by Pulse 97 96 95 Oximetry 06/09/20 06/09/20 06/09/20 05:40 05:50 06:00 Temperature Pulse Rate 88 88 88 Pulse Rate [ From Monitor] Respiratory 19 18 20 Rate Blood Pressure 181/71 162/58 171/65 O2 Sat by Pulse 94 94 94 Oximetry 06/09/20 06/09/20 06/09/20 06:10 06:20 06:30 Temperature Pulse Rate 91 H 87 90 Pulse Rate [ From Monitor] Respiratory 20 17 20 Rate Blood Pressure 181/71 169/60 145/54 O2 Sat by Pulse 94 94 94 Oximetry 06/09/20 06/09/20 06/09/20 06:31 06:40 06:50 Temperature Pulse Rate 87 97 H 82 Pulse Rate [ From Monitor] Respiratory 21 17 Rate Blood Pressure 166/69 145/54 163/60 O2 Sat by Pulse 97 96 Oximetry 06/09/20 06/09/20 06/09/20 07:00 07:10 07:18 Temperature Pulse Rate 94 H 92 H 90 Pulse Rate [ From Monitor] Respiratory 22 21 Rate Blood Pressure 164/67 164/67 O2 Sat by Pulse 97 97 94 Oximetry 06/09/20 06/09/20 06/09/20 07:20 07:30 07:40 Temperature Pulse Rate 93 H 92 H 91 H Pulse Rate [ From Monitor] Respiratory 18 22 17 Rate Blood Pressure 167/65 166/58 167/65 O2 Sat by Pulse 97 97 97 Oximetry 06/09/20 06/09/20 06/09/20 07:50 08:00 08:10 Temperature 101.4 F H Pulse Rate 85 81 81 Pulse Rate [ 66 From Monitor] Respiratory 18 21 17 Rate Blood Pressure 143/62 143/59 166/58 O2 Sat by Pulse 97 96 96 Oximetry 06/09/20 06/09/20 06/09/20 08:20 08:30 08:40 Temperature Pulse Rate 87 95 H 94 H Pulse Rate [ From Monitor] Respiratory 18 18 21 Rate Blood Pressure 153/63 153/63 128/104 O2 Sat by Pulse 98 98 97 Oximetry 06/09/20 06/09/20 06/09/20 08:50 08:58 09:00 Temperature Pulse Rate 99 H 85 Pulse Rate [ From Monitor] Respiratory 18 18 17 Rate Blood Pressure 174/65 174/65 O2 Sat by Pulse 94 96 Oximetry 06/09/20 06/09/20 06/09/20 09:10 09:20 09:30 Temperature Pulse Rate 92 H 87 89 Pulse Rate [ From Monitor] Respiratory 18 20 17 Rate Blood Pressure 174/65 166/43 151/114 O2 Sat by Pulse 96 97 97 Oximetry 06/09/20 06/09/20 06/09/20 09:40 09:46 09:50 Temperature Pulse Rate 93 H 92 H 91 H Pulse Rate [ From Monitor] Respiratory 20 16 Rate Blood Pressure 151/114 176/62 176/62 O2 Sat by Pulse 97 97 Oximetry 06/09/20 06/09/20 06/09/20 10:00 10:10 10:20 Temperature Pulse Rate 89 90 94 H Pulse Rate [ From Monitor] Respiratory 19 18 19 Rate Blood Pressure 160/55 160/55 156/59 O2 Sat by Pulse 97 97 98 Oximetry 06/09/20 06/09/20 06/09/20 10:30 10:40 10:50 Temperature Pulse Rate 97 H 93 H 96 H Pulse Rate [ From Monitor] Respiratory 19 20 19 Rate Blood Pressure 174/63 174/63 157/74 O2 Sat by Pulse 98 97 97 Oximetry 06/09/20 06/09/20 06/09/20 11:00 11:04 11:10 Temperature Pulse Rate 93 H 94 H Pulse Rate [ From Monitor] Respiratory 19 20 18 Rate Blood Pressure 174/54 174/54 O2 Sat by Pulse 97 96 97 Oximetry 06/09/20 06/09/20 06/09/20 11:15 11:20 11:30 Temperature 101.3 F H Pulse Rate 94 H 93 H Pulse Rate [ From Monitor] Respiratory 17 16 Rate Blood Pressure 152/61 172/61 O2 Sat by Pulse 98 98 Oximetry 06/09/20 06/09/20 06/09/20 11:40 11:50 12:00 Temperature Pulse Rate 89 97 H 99 H Pulse Rate [ 97 H From Monitor] Respiratory 18 18 17 Rate Blood Pressure 172/61 147/60 168/135 O2 Sat by Pulse 97 98 98 Oximetry - Lab 06/09/20 05:16 06/09/20 05:16 Most recent lab results ABG pH 7.317 pH Units (7.350-7.450) L 06/07/20 04:54 ABG pCO2 41.9 mm Hg 06/07/20 04:54 ABG pO2 71.4 mm Hg (80.0-90.0) L 06/07/20 04:54 ABG HCO3 20.9 mmol/L (20.0-26.0) 06/07/20 04:54 ABG O2 Saturation 94.3 % (95.0-99.0) L 06/07/20 04:54 Calcium 7.7 mg/dL (8.4-10.2) L 06/09/20 05:16 Urine Creatinine 82.2 mg/dL (0.1-20.0) H 06/06/20 04:00 Urine Sodium 20 mmol/L 06/06/20 04:00 Urine Total Protein 196 mg/dL (5-11.8) H 06/06/20 04:00 Medications & Allergies - Medications Allergies/Adverse Reactions: Allergies No Known Allergies Allergy (Verified 01/21/20 12:28) Home Medications: Home Medications Medication Instructions Recorded Confirmed Last Taken Type AtorvaSTATin [Lipitor] 20 mg PO QHS 05/12/20 05/29/20 Unknown History lisinopriL [Zestril TAB] 40 mg PO QDAY 05/12/20 05/29/20 Unknown History metFORMIN [Glucophage] 850 mg PO BID 05/12/20 05/29/20 Unknown History Acetaminophen [Acetaminophen TAB] 650 mg PO Q4H PRN tablet 05/13/20 05/29/20 Unknown Rx Dicyclomine [Bentyl] 20 mg PO BID #20 tablet 05/13/20 05/29/20 Unknown Rx Famotidine [Pepcid] 20 mg PO BID #30 tablet 05/13/20 05/29/20 Unknown Rx carvediloL [Coreg] 6.25 mg PO BID #60 05/13/20 05/29/20 Unknown Rx Active Medications: Generic Name Dose Route Start Last Admin Trade Name Emeterioq PRN Reason Stop Dose Admin Acetaminophen 650 mg 06/09/20 10:57 06/09/20 11:20 Tylenol FEEDTUBE 650 mg Q6H PRN Administration Fever >101 Amlodipine Besylate 10 mg 06/02/20 11:00 06/09/20 09:46 Amlodipine PO 10 mg DAILY NELSON Administration Lipase/Protease/Amylase 1 each 05/29/20 13:39 Pancreaze 10,500 Unit FEEDTUBE PRN PRN For Clogged Feeding Tube Carvedilol 12.5 mg 06/03/20 10:00 06/09/20 09:46 Coreg PO 12.5 mg BID NELSON Administration Clonidine HCl 0.1 mg 06/04/20 06:00 06/09/20 06:30 Catapres PO 0.1 mg Q8HR NELSON Administration Clonidine HCl 0.2 mg 06/04/20 06:00 06/09/20 06:30 Catapres PO 0.2 mg Q8HR NELSON Administration Fentanyl 50 mcg 05/29/20 14:21 06/08/20 23:51 Sublimaze IV 50 mcg Q10MIN PRN Administration ANALGESIA Furosemide 60 mg 06/09/20 10:00 06/09/20 09:45 Lasix IV 60 mg 0600,1800 NELSON Administration Glycopyrrolate 2 mg 06/09/20 14:00 Glycopyrrolate PO TID NELSON Hydralazine HCl 50 mg 06/03/20 09:00 06/09/20 06:31 Apresoline PO 50 mg Q8HR NELSON Administration Hydrophilic Ointment 1 applic 05/28/20 13:49 Vaseline Lip Therapy TP Q2HR PRN Dry Lips Heparin Sodium/Sodium Chloride 25,000 unit in 500 mls @ 30 mls/hr 05/29/20 15:00 06/08/20 23:59 Heparin/ 0.45% Nacl-25,000 Unit/500 Ml IV 1,450 units/hr TITR NELSON 29 mls/hr Administration Protocol 1,500 UNITS/HR Fentanyl Citrate 2,000 mcg in 100 mls @ 6.095 mls/hr 05/29/20 15:00 06/07/20 08:30 Fentanyl Drip Premix IV 0 mcg/kg/hr TITR NELSON 0 mls/hr Titration Protocol 1 MCG/KG/HR Nicardipine HCl 50 mg/ Sodium 250 mls @ 25 mls/hr 06/02/20 09:00 06/02/20 11:23 Chloride IV 0 mg/hr TITR NELSON 0 mls/hr Titration Protocol 5 MG/HR Insulin Glargine 10 units 06/08/20 22:00 06/08/20 21:58 Lantus SUB-Q 10 units QHS [facility] Administration Insulin Human Lispro 0 unit 05/29/20 18:00 06/09/20 11:53 Humalog SUB-Q Not Given Q6H [facility] Protocol Labetalol HCl 20 mg 06/03/20 09:00 06/08/20 23:51 Labetalol IV 20 mg Q4H PRN Administration HYPERTENSION Lansoprazole 30 mg 06/05/20 22:00 06/09/20 09:46 Prevacid Solutab FEEDTUBE 30 mg BID [facility] Administration Levetiracetam 500 mg 05/29/20 22:00 06/09/20 09:46 Keppra PO 500 mg BID NELSON Administration Multi-Ingred Cream/Lotion/Oil/Oint 1 applic 05/28/20 13:49 Artificial Tears Ophth Oint OU Q4HR PRN Dry Eye(s) Ondansetron HCl 4 mg 06/02/20 09:00 Zofran IV Q8H PRN Nausea And Vomiting Quetiapine Fumarate 200 mg 06/08/20 22:00 06/08/20 21:57 Seroquel PO 200 mg QHS NELSON Administration Scopolamine 1 each 06/05/20 14:00 06/08/20 09:02 Transderm-Scop TD 1 each Q3D NELSON Administration Senna 17.6 mg 06/03/20 10:00 06/09/20 09:45 Senokot FEEDTUBE 17.6 mg BID NELSON Administration Simple Syrup 15 ml 05/29/20 13:39 Simple Syrup FEEDTUBE PRN PRN Hypoglycemia Simple Syrup 30 ml 05/29/20 13:39 Simple Syrup FEEDTUBE PRN PRN Hypoglycemia Sodium Bicarbonate 325 mg 05/29/20 13:39 Sodium Bicarbonate FEEDTUBE PRN PRN For Clogged Feeding Tube Sodium Bicarbonate 650 mg 06/06/20 10:00 06/09/20 09:46 Sodium Bicarbonate PO 650 mg BID NELSON Administration Sodium Chloride 10 ml 05/28/20 22:00 06/09/20 09:45 Sodium Chloride Flush Syringe 10 Ml IV 10 ml BID NELSON Administration Sodium Chloride 10 ml 05/28/20 19:08 Sodium Chloride Flush Syringe 10 Ml IV PRN PRN LINE FLUSH
--- NOTE | 2020-06-09 16:05 | Progress Note ---
Assessment and Plan -- Acute hypoxemic respiratory failure From COVID-19 viral infection Patient intubated, sedated and on ventilatory support. Critical care team on board On SBT as per critical care team -- Cardiac arrest Cardiology team on board Conservative management as per cardiology -- Acute renal failure likely ATN Cr stable. BUN is climbing - now >100. ?may need HD soon - defer to nephrology Avoid ACEI and other nephrotoxic medications Nephrology following -- Coronavirus infection Completed remdesivir on 06/02 Continue dexamethasone - Last dose 06/07 ID recs appreciated. Maintained on ventilator --CHF (congestive heart failure) Cardiology following. -- Coffee ground emesis -Stress ulcers Possible stress ulcers On PPI H/H remains stable GI evaluation if Hb drops again -- Hypertension Continue amlodipine, coreg, clonidine and hydralazine Monitor BP -- DVT prophylaxis SCD to bilateral lower extremities while in bed Heparin -- Advance care planning Patient is full code. poor prognosis The high probability of a clinically significant, sudden or life threatening deterioration of the [CVS, respiratory, renal] system(s) required my full and direct attention, intervention and personal management. The aggregate critical care time was [32] minutes. This time is in addition to time spent performing reported procedures but includes the following: [x] Data Review and interpretation [x] Patient assessment and monitoring of vital signs [x] Documentation [x] Medication orders and management Brief History; 64 YO Female with a medical history of HTN, Diastolic CHF, Pulmonary HTN, DM, Obesity Hypoventilation Syndrome presents to ED for evaluation of shortness of breath. Patients history taken from EMS staff, ED staff. As per staff, the EMS was notified for difficulty breathing. Upon arrival to the patient's home the patient was found to be in distress and was subsequently transported to [facility] for further evaluation and care. In route to [facility] the patient developed cardiac arrest and was treated in accordance with ACLS protocol with return of ROSC Patient was seen and evaluated in the emergency department and was found to have acute hypoxemic respiratory failure status post cardiac arrest. Patient was intubated and placed on ventilatory support. Patient admitted to ICU due to in creased risk of decompensation. Critical care team consulted in ED. She was found to have COVID-19 iinfection and was started on steroids and remdesivir. ID was consulted. Cardiology was consulted for her systolic heart failure and cardiac arrest. 06/01. Patient remains intubated and on ventilatory support today. Patient has multiple organ system failure and has poor prognosis. Patient did not experience significant medical decompensation overnight but no improvement with current therapy. 06/02. Remains intubated. her BP is elevated. Started on nicardipine drip. Cardiology following. 06/03-06/04. BP is better. Hb stable. Completed remdesivir. ID , Cardiology and Critical care team on board 06/05. Bump in creatinine. I/O reviewed. Nephrology consulted. 06/06. Has slight improvement in renal function. Nephrology on board. On SBT today. Vitals stable. 06/07. Stable renal function. No need for HD as per nephrology. She is making urine. Plan for SBT. 06/08. Off sedation and very lethargic. Her BUN is going up - effect of steroids vs GI bleed. Her hemoglobin remains stable. Will check stool guaiac. Nephrology is following. WBC bumped to 16 today. 06/09: remains intubated, wbc trended up, Cr slightly trending down. cont TF, wean off vent as tolerated. Subjective Date of service: 06/09/20 Principal diagnosis: Ac hypoxemic resp failure; COVID-19; pneumonia; CHF; Pulm HTN; OHS; DM II Interval history: Patient seen and examined Vitals reviewed Patient remains intubated and sedated Tolerating tube feeding Discussed with RN at the bedside Objective - Exam Narrative Exam: General appearance: Present: obese, other (intubated on the vent) - EENT Eyes: Present: PERRL - Neck Neck: Present: supple - Cardiovascular Rhythm: regular Heart Sounds: Present: S1 & S2 - Extremities Extremities: No edema - Abdominal General gastrointestinal: soft, non-tender, non-distended - Neurologic Neurologic: other (Intubated) Skin: No rash warm and dry Musculoskeletal: No joint effusion or erythema Psychiatric: Unable to assess - Constitutional Vitals: Vital Signs - 12hr 06/09/20 06/09/20 06/09/20 04:10 04:20 04:30 Temperature Pulse Rate 89 80 80 Pulse Rate [ From Monitor] Respiratory 18 17 16 Rate Blood Pressure 159/61 159/54 154/59 O2 Sat by Pulse 100 97 97 Oximetry 06/09/20 06/09/20 06/09/20 04:40 04:50 05:00 Temperature Pulse Rate 82 84 93 H Pulse Rate [ From Monitor] Respiratory 17 18 18 Rate Blood Pressure 154/59 156/54 156/54 O2 Sat by Pulse 96 96 97 Oximetry 06/09/20 06/09/20 06/09/20 05:10 05:20 05:30 Temperature Pulse Rate 95 H 92 H 95 H Pulse Rate [ From Monitor] Respiratory 17 18 20 Rate Blood Pressure 156/54 169/92 181/71 O2 Sat by Pulse 97 96 95 Oximetry 06/09/20 06/09/20 06/09/20 05:40 05:50 06:00 Temperature Pulse Rate 88 88 88 Pulse Rate [ From Monitor] Respiratory 19 18 20 Rate Blood Pressure 181/71 162/58 171/65 O2 Sat by Pulse 94 94 94 Oximetry 06/09/20 06/09/20 06/09/20 06:10 06:20 06:30 Temperature Pulse Rate 91 H 87 90 Pulse Rate [ From Monitor] Respiratory 20 17 20 Rate Blood Pressure 181/71 169/60 145/54 O2 Sat by Pulse 94 94 94 Oximetry 06/09/20 06/09/20 06/09/20 06:31 06:40 06:50 Temperature Pulse Rate 87 97 H 82 Pulse Rate [ From Monitor] Respiratory 21 17 Rate Blood Pressure 166/69 145/54 163/60 O2 Sat by Pulse 97 96 Oximetry 06/09/20 06/09/20 06/09/20 07:00 07:10 07:18 Temperature Pulse Rate 94 H 92 H 90 Pulse Rate [ From Monitor] Respiratory 22 21 Rate Blood Pressure 164/67 164/67 O2 Sat by Pulse 97 97 94 Oximetry 06/09/20 06/09/20 06/09/20 07:20 07:30 07:40 Temperature Pulse Rate 93 H 92 H 91 H Pulse Rate [ From Monitor] Respiratory 18 22 17 Rate Blood Pressure 167/65 166/58 167/65 O2 Sat by Pulse 97 97 97 Oximetry 06/09/20 06/09/20 06/09/20 07:50 08:00 08:10 Temperature 101.4 F H Pulse Rate 85 81 81 Pulse Rate [ 66 From Monitor] Respiratory 18 21 17 Rate Blood Pressure 143/62 143/59 166/58 O2 Sat by Pulse 97 96 96 Oximetry 06/09/20 06/09/20 06/09/20 08:20 08:30 08:40 Temperature Pulse Rate 87 95 H 94 H Pulse Rate [ From Monitor] Respiratory 18 18 21 Rate Blood Pressure 153/63 153/63 128/104 O2 Sat by Pulse 98 98 97 Oximetry 06/09/20 06/09/20 06/09/20 08:50 08:58 09:00 Temperature Pulse Rate 99 H 85 Pulse Rate [ From Monitor] Respiratory 18 18 17 Rate Blood Pressure 174/65 174/65 O2 Sat by Pulse 94 96 Oximetry 06/09/20 06/09/20 06/09/20 09:10 09:20 09:30 Temperature Pulse Rate 92 H 87 89 Pulse Rate [ From Monitor] Respiratory 18 20 17 Rate Blood Pressure 174/65 166/43 151/114 O2 Sat by Pulse 96 97 97 Oximetry 06/09/20 06/09/20 06/09/20 09:40 09:46 09:50 Temperature Pulse Rate 93 H 92 H 91 H Pulse Rate [ From Monitor] Respiratory 20 16 Rate Blood Pressure 151/114 176/62 176/62 O2 Sat by Pulse 97 97 Oximetry 06/09/20 06/09/20 06/09/20 10:00 10:10 10:20 Temperature Pulse Rate 89 90 94 H Pulse Rate [ From Monitor] Respiratory 19 18 19 Rate Blood Pressure 160/55 160/55 156/59 O2 Sat by Pulse 97 97 98 Oximetry 06/09/20 06/09/20 06/09/20 10:30 10:40 10:50 Temperature Pulse Rate 97 H 93 H 96 H Pulse Rate [ From Monitor] Respiratory 19 20 19 Rate Blood Pressure 174/63 174/63 157/74 O2 Sat by Pulse 98 97 97 Oximetry 06/09/20 06/09/20 06/09/20 11:00 11:04 11:10 Temperature Pulse Rate 93 H 94 H Pulse Rate [ From Monitor] Respiratory 19 20 18 Rate Blood Pressure 174/54 174/54 O2 Sat by Pulse 97 96 97 Oximetry 06/09/20 06/09/20 06/09/20 11:15 11:20 11:30 Temperature 101.3 F H Pulse Rate 94 H 93 H Pulse Rate [ From Monitor] Respiratory 17 16 Rate Blood Pressure 152/61 172/61 O2 Sat by Pulse 98 98 Oximetry 06/09/20 06/09/20 06/09/20 11:40 11:50 12:00 Temperature Pulse Rate 89 97 H 99 H Pulse Rate [ 97 H From Monitor] Respiratory 18 18 17 Rate Blood Pressure 172/61 147/60 168/135 O2 Sat by Pulse 97 98 98 Oximetry 06/09/20 06/09/20 06/09/20 12:10 12:20 12:30 Temperature Pulse Rate 98 H 92 H 87 Pulse Rate [ From Monitor] Respiratory 20 19 21 Rate Blood Pressure 168/135 171/54 176/56 O2 Sat by Pulse 97 97 97 Oximetry 06/09/20 06/09/20 06/09/20 12:40 12:50 13:00 Temperature Pulse Rate 86 101 H 98 H Pulse Rate [ From Monitor] Respiratory 19 20 19 Rate Blood Pressure 176/56 168/135 168/135 O2 Sat by Pulse 97 98 98 Oximetry 06/09/20 06/09/20 06/09/20 13:10 13:20 13:27 Temperature Pulse Rate 95 H 94 H 93 H Pulse Rate [ From Monitor] Respiratory 21 20 Rate Blood Pressure 159/67 156/51 156/51 O2 Sat by Pulse 98 97 Oximetry 06/09/20 06/09/20 06/09/20 13:28 13:30 13:40 Temperature Pulse Rate 92 H 96 H 91 H Pulse Rate [ From Monitor] Respiratory 20 17 Rate Blood Pressure 156/51 156/51 124/68 O2 Sat by Pulse 97 98 Oximetry 06/09/20 06/09/20 06/09/20 13:50 14:00 14:10 Temperature Pulse Rate 85 87 87 Pulse Rate [ From Monitor] Respiratory 16 17 16 Rate Blood Pressure 159/67 154/53 154/53 O2 Sat by Pulse 98 97 96 Oximetry 06/09/20 06/09/20 06/09/20 14:20 14:30 14:40 Temperature Pulse Rate 92 H 96 H 91 H Pulse Rate [ From Monitor] Respiratory 17 17 15 Rate Blood Pressure 150/98 150/98 171/62 O2 Sat by Pulse 98 98 98 Oximetry 06/09/20 06/09/20 06/09/20 14:50 15:00 15:10 Temperature Pulse Rate 93 H 93 H 94 H Pulse Rate [ From Monitor] Respiratory 17 13 15 Rate Blood Pressure 166/62 128/107 128/107 O2 Sat by Pulse 98 99 98 Oximetry 06/09/20 06/09/20 15:20 15:30 Temperature Pulse Rate 90 88 Pulse Rate [ From Monitor] Respiratory 16 14 Rate Blood Pressure 161/58 146/58 O2 Sat by Pulse 98 98 Oximetry - Labs CBC & Chem 7: 06/12/20 02:46 06/12/20 02:46 Labs: Abnormal lab results 06/08/20 06/08/20 06/08/20 Range/Units 11:55 17:54 22:01 WBC (4.5-11.0) K/mm3 RBC (3.65-5.03) M/mm3 Hgb (10.1-14.3) gm/dl Hct (30.3-42.9) % RDW (13.2-15.2) % Seg Neuts % (Manual) (40.0-70.0) % Lymphocytes % (Manual) (13.4-35.0) % Seg Neutrophils # Man (1.8-7.7) K/mm3 Monocytes # (Manual) (0.0-0.8) K/mm3 Sodium (137-145) mmol/L Carbon Dioxide (22-30) mmol/L BUN (7-17) mg/dL Creatinine (0.6-1.2) mg/dL Glucose (65-100) mg/dL POC Glucose 218 H 163 H 182 H (70-105) Calcium (8.4-10.2) mg/dL Alkaline Phosphatase (35-129) units/L Total Protein (6.3-8.2) g/dL Albumin (3.9-5) g/dL 06/09/20 06/09/20 06/09/20 Range/Units 00:09 05:16 05:16 WBC 19.0 H (4.5-11.0) K/mm3 RBC 3.35 L (3.65-5.03) M/mm3 Hgb 9.2 L (10.1-14.3) gm/dl Hct 28.5 L (30.3-42.9) % RDW 16.3 H (13.2-15.2) % Seg Neuts % (Manual) 85.0 H (40.0-70.0) % Lymphocytes % (Manual) 7.0 L (13.4-35.0) % Seg Neutrophils # Man 16.2 H (1.8-7.7) K/mm3 Monocytes # (Manual) 1.3 H (0.0-0.8) K/mm3 Sodium 133 L (137-145) mmol/L Carbon Dioxide 19 L (22-30) mmol/L BUN 109 H (7-17) mg/dL Creatinine 2.1 H (0.6-1.2) mg/dL Glucose 133 H (65-100) mg/dL POC Glucose 150 H (70-105) Calcium 7.7 L (8.4-10.2) mg/dL Alkaline Phosphatase < 5 L (35-129) units/L Total Protein 4.6 L (6.3-8.2) g/dL Albumin < 0.2 L (3.9-5) g/dL 06/09/20 06/09/20 Range/Units 05:24 11:29 WBC (4.5-11.0) K/mm3 RBC (3.65-5.03) M/mm3 Hgb (10.1-14.3) gm/dl Hct (30.3-42.9) % RDW (13.2-15.2) % Seg Neuts % (Manual) (40.0-70.0) % Lymphocytes % (Manual) (13.4-35.0) % Seg Neutrophils # Man (1.8-7.7) K/mm3 Monocytes # (Manual) (0.0-0.8) K/mm3 Sodium (137-145) mmol/L Carbon Dioxide (22-30) mmol/L BUN (7-17) mg/dL Creatinine (0.6-1.2) mg/dL Glucose (65-100) mg/dL POC Glucose 128 H 119 H (70-105) Calcium (8.4-10.2) mg/dL Alkaline Phosphatase (35-129) units/L Total Protein (6.3-8.2) g/dL Albumin (3.9-5) g/dL
--- NOTE | 2020-06-09 16:39 | Progress Note ---
Assessment and Plan Cultures: Coronavirus PCR: Positive 05/28/2020 blood culture: no growth 05/28/2020 tracheal aspirate: Usual respiratory bobo 05/28/2020 urine culture: No growth 06/03/2020 urine culture: No growth A/P: 64-year-old female with hypertension, diastolic CHF, pulmonary hypertension, diabetes, obesity hypoventilation syndrome was admitted to the emergency room after she called EMS due to difficulty breathing. On the way to the hospital, patient developed cardiac arrest and was treated as per ACLS protocol: #Bilateral pneumonia: Secondary to COVID-19. Completed 5 days of IV Remdesivir 06/02/2020. #Acute hypoxic respiratory failure: On mechanical ventilation. Minimal vent settings. #Status post PEA arrest, encephalopathy #HF: EF 45-50% #Mild LFT elevation: likely from COVID-19. #Mild AVANI not better Recs: Completed dexamethasone Continue to monitor. New fevers and white count. Started empiric vanc and cefepime. Ordered CXR Repeat blood and sputum cultures. Keisha Chaudhari MD [facility] M: [phone] O: [phone] F: [phone] Subjective Date of service: 06/09/20 Principal diagnosis: Ac hypoxemic resp failure; COVID-19; pneumonia; CHF; Pulm HTN; OHS; DM II Interval history: Febrile to 101.4 with a white count of 19. Remains intubated. Objective - Exam Narrative Exam: Physical exam deferred due to PPE conservation strategy. Please refer to p carolyneary team's note. - Constitutional Vitals: Vital Signs Temp Pulse Resp BP Pulse Ox 101.3 F H 88 14 146/58 98 06/09/20 11:15 06/09/20 15:30 06/09/20 15:30 06/09/20 15:30 06/09/20 15:30 Temperature -Last 24 Hours Temperature 101.3 F Temperature 101.4 F Temperature 99.8 F Temperature 99.6 F Temperature 98.9 F - Labs CBC & Chem 7: 06/09/20 05:16 06/09/20 05:16 Labs: Abnormal lab results 06/08/20 06/08/20 06/08/20 Range/Units 11:55 17:54 22:01 WBC (4.5-11.0) K/mm3 RBC (3.65-5.03) M/mm3 Hgb (10.1-14.3) gm/dl Hct (30.3-42.9) % RDW (13.2-15.2) % Seg Neuts % (Manual) (40.0-70.0) % Lymphocytes % (Manual) (13.4-35.0) % Seg Neutrophils # Man (1.8-7.7) K/mm3 Monocytes # (Manual) (0.0-0.8) K/mm3 Sodium (137-145) mmol/L Carbon Dioxide (22-30) mmol/L BUN (7-17) mg/dL Creatinine (0.6-1.2) mg/dL Glucose (65-100) mg/dL POC Glucose 218 H 163 H 182 H (70-105) Calcium (8.4-10.2) mg/dL Alkaline Phosphatase (35-129) units/L Total Protein (6.3-8.2) g/dL Albumin (3.9-5) g/dL 06/09/20 06/09/20 06/09/20 Range/Units 00:09 05:16 05:16 WBC 19.0 H (4.5-11.0) K/mm3 RBC 3.35 L (3.65-5.03) M/mm3 Hgb 9.2 L (10.1-14.3) gm/dl Hct 28.5 L (30.3-42.9) % RDW 16.3 H (13.2-15.2) % Seg Neuts % (Manual) 85.0 H (40.0-70.0) % Lymphocytes % (Manual) 7.0 L (13.4-35.0) % Seg Neutrophils # Man 16.2 H (1.8-7.7) K/mm3 Monocytes # (Manual) 1.3 H (0.0-0.8) K/mm3 Sodium 133 L (137-145) mmol/L Carbon Dioxide 19 L (22-30) mmol/L BUN 109 H (7-17) mg/dL Creatinine 2.1 H (0.6-1.2) mg/dL Glucose 133 H (65-100) mg/dL POC Glucose 150 H (70-105) Calcium 7.7 L (8.4-10.2) mg/dL Alkaline Phosphatase < 5 L (35-129) units/L Total Protein 4.6 L (6.3-8.2) g/dL Albumin < 0.2 L (3.9-5) g/dL 06/09/20 06/09/20 Range/Units 05:24 11:29 WBC (4.5-11.0) K/mm3 RBC (3.65-5.03) M/mm3 Hgb (10.1-14.3) gm/dl Hct (30.3-42.9) % RDW (13.2-15.2) % Seg Neuts % (Manual) (40.0-70.0) % Lymphocytes % (Manual) (13.4-35.0) % Seg Neutrophils # Man (1.8-7.7) K/mm3 Monocytes # (Manual) (0.0-0.8) K/mm3 Sodium (137-145) mmol/L Carbon Dioxide (22-30) mmol/L BUN (7-17) mg/dL Creatinine (0.6-1.2) mg/dL Glucose (65-100) mg/dL POC Glucose 128 H 119 H (70-105) Calcium (8.4-10.2) mg/dL Alkaline Phosphatase (35-129) units/L Total Protein (6.3-8.2) g/dL Albumin (3.9-5) g/dL
[2020-06-09] MEDS: ONDANSETRON 4 MG/2 ML INJ IV PRN (16:48)
[2020-06-09] MEDS ORDERED: VANCOMYCIN PHARMACY TO DOSE IV SCH (17:00)
[2020-06-09] MEDS ORDERED: VANCOMYCIN 2,000 MG in SODIUM CHLORIDE 0.9% 500 ML 500 ML IV SCH (17:30)
[2020-06-09] MEDS ORDERED: METOCLOPRAMIDE 10 MG/2 ML INJ IV PRN (18:07)
[2020-06-09] MEDS: METOCLOPRAMIDE 10 MG/2 ML INJ IV SCH (18:31)
[2020-06-09] MEDS: GLYCOPYRROLATE 2 MG TAB PO SCH ×2 (21:28→22:10)
[2020-06-09] MEDS: CEFEPIME/NS 2 GM/100 ML 2 GM/100 ML BAG IV SCH (21:29)
[2020-06-09] MEDS: QUEtiapine 200 MG TAB PO SCH (22:10)
[2020-06-09] MEDS: VANCOMYCIN 2,000 MG in SODIUM CHLORIDE 0.9% 500 ML 500 ML IV SCH (22:11)
[2020-06-10] MEDS: INSULIN LISPRO 100 UNIT/ML VIAL 3 mL SUB-Q SCH ×4 (00:12→17:34)
[2020-06-10] MEDS: INSULIN GLARGINE 100 UNITS/ML SUB-Q SCH ×2 (00:16→22:18)
[2020-06-10] MEDS: METOCLOPRAMIDE 10 MG/2 ML INJ IV SCH ×3 (03:51→20:33)
[2020-06-10] MEDS: FUROSEMIDE 40 MG/4 ML INJ IV SCH ×2 (06:13→18:15)
[2020-06-10] MEDS: cloNIDine 0.1 MG TAB PO SCH ×4 (06:51→22:00)
[2020-06-10] MEDS: cloNIDine 0.2 MG TAB PO SCH ×4 (06:51→22:00)
[2020-06-10] MEDS: hydrALAZINE 25 MG TAB PO SCH ×4 (06:51→22:18)
[2020-06-10] MEDS: GLYCOPYRROLATE 2 MG TAB PO SCH ×3 (08:42→20:33)
[2020-06-10 10:19] LABS: Calcium 8.2 mg/dL (8.4-10.2)
[2020-06-10] MEDS: CEFEPIME/NS 2 GM/100 ML 2 GM/100 ML BAG IV SCH (10:37)
--- NOTE | 2020-06-10 10:37 | Progress Note ---
Assessment and Plan - Patient Problems (1) Acute kidney injury (AVANI) with acute tubular necrosis (ATN) Current Visit: Yes Status: Acute Plan to address problem: renal function remained stable with slowly improving renal parameters. This still remains no acute indication for renal replacement therapy. Will monitor closely. Will continue with Lasix 60 mg IV twice a day. We will monitor urine output with aforementioned diuretic regimen. (2) Acute hypoxemic respiratory failure Current Visit: Yes Status: Acute Plan to address problem: management per pulmonary team. Remains intubated at this time. (3) Volume overload Current Visit: Yes Status: Acute Plan to address problem: Responding well to lasix 60 mg IV BID, will plan to continue with current igor men. (4) Pneumonia due to COVID-19 virus Current Visit: Yes Status: Acute Plan to address problem: management per ID recommendations. (5) Hyperkalemia Current Visit: Yes Status: Acute Plan to address problem: in the setting of acute kidney injury. Current labs show stable potassium levels. We will be monitoring very closely. Subjective Date of service: 06/10/20 Principal diagnosis: Ac hypoxemic resp failure; COVID-19; pneumonia; CHF; Pulm HTN; OHS; DM II Interval history: No acute events per nursing staff. Urine output has increased with increase in her diuretic regimen to lasix 60 mg IV BID. Objective - Exam Narrative Exam: patient was not directly examined secondary to preservation of PPE - Vital Signs Vital signs: Vital Signs - 12hr 06/09/20 06/09/20 06/09/20 22:45 23:01 23:15 Temperature Pulse Rate 92 H 83 82 Pulse Rate [ From Monitor] Respiratory Rate Blood Pressure 173/71 154/67 171/73 O2 Sat by Pulse 99 97 98 Oximetry 06/09/20 06/09/20 06/10/20 23:30 23:39 00:00 Temperature 100.1 F H Pulse Rate 80 79 84 Pulse Rate [ 81 From Monitor] Respiratory 14 Rate Blood Pressure 175/66 175/66 O2 Sat by Pulse 98 97 98 Oximetry 06/10/20 06/10/20 06/10/20 00:01 00:18 00:31 Temperature Pulse Rate 81 89 84 Pulse Rate [ From Monitor] Respiratory Rate Blood Pressure 172/63 169/68 165/65 O2 Sat by Pulse 98 99 97 Oximetry 06/10/20 06/10/20 06/10/20 01:00 01:31 02:00 Temperature Pulse Rate 83 96 H 91 H Pulse Rate [ From Monitor] Respiratory 14 13 13 Rate Blood Pressure 165/59 168/64 165/64 O2 Sat by Pulse 98 99 99 Oximetry 06/10/20 06/10/20 06/10/20 02:31 03:00 03:31 Temperature Pulse Rate 84 85 79 Pulse Rate [ From Monitor] Respiratory 16 15 14 Rate Blood Pressure 138/57 156/58 132/52 O2 Sat by Pulse 96 95 96 Oximetry 06/10/20 06/10/20 06/10/20 04:00 04:01 04:22 Temperature 100.2 F H Pulse Rate 91 H 91 H 85 Pulse Rate [ 91 H From Monitor] Respiratory 14 10 L Rate Blood Pressure 132/52 O2 Sat by Pulse 98 98 98 Oximetry 06/10/20 06/10/20 06/10/20 04:31 05:00 05:31 Temperature Pulse Rate 87 79 70 Pulse Rate [ From Monitor] Respiratory 16 14 18 Rate Blood Pressure 142/56 134/52 113/40 O2 Sat by Pulse 99 98 99 Oximetry 06/10/20 06/10/20 06/10/20 06:01 06:30 07:01 Temperature Pulse Rate 73 72 81 Pulse Rate [ From Monitor] Respiratory 14 15 11 L Rate Blood Pressure 113/40 125/48 167/60 O2 Sat by Pulse 98 98 99 Oximetry 06/10/20 06/10/20 06/10/20 07:09 07:30 08:00 Temperature Pulse Rate 80 89 80 Pulse Rate [ 80 From Monitor] Respiratory 13 14 Rate Blood Pressure 167/60 172/63 O2 Sat by Pulse 100 99 Oximetry 06/10/20 06/10/20 06/10/20 08:01 08:30 09:01 Temperature Pulse Rate 81 82 74 Pulse Rate [ From Monitor] Respiratory 19 19 13 Rate Blood Pressure 146/61 163/56 138/51 O2 Sat by Pulse 99 98 97 Oximetry 06/10/20 10:21 Temperature Pulse Rate 79 Pulse Rate [ From Monitor] Respiratory Rate Blood Pressure 138/57 O2 Sat by Pulse 99 Oximetry - Lab 06/09/20 05:16 06/10/20 07:40 Most recent lab results ABG pH 7.317 pH Units (7.350-7.450) L 06/07/20 04:54 ABG pCO2 41.9 mm Hg 06/07/20 04:54 ABG pO2 71.4 mm Hg (80.0-90.0) L 06/07/20 04:54 ABG HCO3 20.9 mmol/L (20.0-26.0) 06/07/20 04:54 ABG O2 Saturation 94.3 % (95.0-99.0) L 06/07/20 04:54 Calcium 8.2 mg/dL (8.4-10.2) L 06/10/20 07:40 Urine Creatinine 82.2 mg/dL (0.1-20.0) H 06/06/20 04:00 Urine Sodium 20 mmol/L 06/06/20 04:00 Urine Total Protein 196 mg/dL (5-11.8) H 06/06/20 04:00 Medications & Allergies - Medications Allergies/Adverse Reactions: Allergies No Known Allergies Allergy (Verified 01/21/20 12:28) Home Medications: Home Medications Medication Instructions Recorded Confirmed Last Taken Type AtorvaSTATin [Lipitor] 20 mg PO QHS 05/12/20 05/29/20 Unknown History lisinopriL [Zestril TAB] 40 mg PO QDAY 05/12/20 05/29/20 Unknown History metFORMIN [Glucophage] 850 mg PO BID 05/12/20 05/29/20 Unknown History Acetaminophen [Acetaminophen TAB] 650 mg PO Q4H PRN tablet 05/13/20 05/29/20 Unknown Rx Dicyclomine [Bentyl] 20 mg PO BID #20 tablet 05/13/20 05/29/20 Unknown Rx Famotidine [Pepcid] 20 mg PO BID #30 tablet 05/13/20 05/29/20 Unknown Rx carvediloL [Coreg] 6.25 mg PO BID #60 05/13/20 05/29/20 Unknown Rx Active Medications: Generic Name Dose Route Start Last Admin Trade Name Freq PRN Reason Stop Dose Admin Acetaminophen 650 mg 06/09/20 10:57 06/09/20 20:28 Tylenol FEEDTUBE 650 mg Q6H PRN Administration Fever >101 Amlodipine Besylate 10 mg 06/02/20 11:00 06/09/20 09:46 Amlodipine PO 10 mg DAILY NELSON Administration Lipase/Protease/Amylase 1 each 05/29/20 13:39 Pancreaze 10,500 Unit FEEDTUBE PRN PRN For Clogged Feeding Tube Carvedilol 12.5 mg 06/03/20 10:00 06/09/20 21:05 Coreg PO 12.5 mg BID NELSON Administration Clonidine HCl 0.1 mg 06/04/20 06:00 06/10/20 07:09 Catapres PO 0.1 mg Q8HR NELSON Administration Clonidine HCl 0.2 mg 06/04/20 06:00 06/10/20 07:09 Catapres PO 0.2 mg Q8HR NELSON Administration Fentanyl 50 mcg 05/29/20 14:21 06/09/20 20:27 Sublimaze IV 50 mcg Q10MIN PRN Administration ANALGESIA Furosemide 60 mg 06/09/20 10:00 06/10/20 06:13 Lasix IV 60 mg 0600,1800 NELSON Administration Glycopyrrolate 2 mg 06/09/20 14:00 06/10/20 08:42 Glycopyrrolate PO 2 mg TID NELSON Administration Hydralazine HCl 50 mg 06/03/20 09:00 06/10/20 07:09 Apresoline PO 50 mg Q8HR NELSON Administration Hydrophilic Ointment 1 applic 05/28/20 13:49 Vaseline Lip Therapy TP Q2HR PRN Dry Lips Heparin Sodium/Sodium Chloride 25,000 unit in 500 mls @ 30 mls/hr 05/29/20 15:00 06/10/20 06:52 Heparin/ 0.45% Nacl-25,000 Unit/500 Ml IV Infused TITR NELSON Titration Protocol 1,500 UNITS/HR Fentanyl Citrate 2,000 mcg in 100 mls @ 6.095 mls/hr 05/29/20 15:00 06/07/20 08:30 Fentanyl Drip Premix IV 0 mcg/kg/hr TITR NELSON 0 mls/hr Titration Protocol 1 MCG/KG/HR Nicardipine HCl 50 mg/ Sodium 250 mls @ 25 mls/hr 06/02/20 09:00 06/02/20 11:23 Chloride IV 0 mg/hr TITR NELSON 0 mls/hr Titration Protocol 5 MG/HR Cefepime HCl 2 gm in 100 mls @ 200 mls/hr 06/09/20 17:00 06/09/20 21:29 Cefepime/Ns 2 Gm/100 Ml IV Not Given Q24HR NELSON Protocol Vancomycin HCl 2,000 mg/ 540 mls @ 250 mls/hr 06/09/20 19:00 06/09/20 22:11 Sodium Chloride IV 250 mls/hr Q24H NELSON Administration Insulin Glargine 10 units 06/08/20 22:00 06/10/20 00:16 Lantus SUB-Q Not Given QHS NELSON Insulin Human Lispro 0 unit 05/29/20 18:00 06/10/20 05:51 Humalog SUB-Q Not Given Q6H [facility] Protocol Labetalol HCl 20 mg 06/03/20 09:00 06/08/20 23:51 Labetalol IV 20 mg Q4H PRN Administration HYPERTENSION Lansoprazole 30 mg 06/05/20 22:00 06/09/20 22:06 Prevacid Solutab FEEDTUBE 30 mg BID NELSON Administration Levetiracetam 500 mg 05/29/20 22:00 06/09/20 22:06 Keppra PO 500 mg BID NELSON Administration Metoclopramide HCl 10 mg 06/09/20 19:00 06/10/20 03:51 Reglan IV 10 mg Q8H NELSON Administration Multi-Ingred Cream/Lotion/Oil/Oint 1 applic 05/28/20 13:49 Artificial Tears Ophth Oint OU Q4HR PRN Dry Eye(s) Ondansetron HCl 4 mg 06/02/20 09:00 06/09/20 16:48 Zofran IV 4 mg Q8H PRN Administration Nausea And Vomiting Quetiapine Fumarate 200 mg 06/08/20 22:00 06/09/20 22:10 Seroquel PO 200 mg QHS [facility] Administration Scopolamine 1 each 06/05/20 14:00 06/08/20 09:02 Transderm-Scop TD 1 each Q3D NELSON Administration Senna 17.6 mg 06/03/20 10:00 06/09/20 22:10 Senokot FEEDTUBE 17.6 mg BID NELSON Administration Simple Syrup 15 ml 05/29/20 13:39 Simple Syrup FEEDTUBE PRN PRN Hypoglycemia Simple Syrup 30 ml 05/29/20 13:39 Simple Syrup FEEDTUBE PRN PRN Hypoglycemia Sodium Bicarbonate 325 mg 05/29/20 13:39 Sodium Bicarbonate FEEDTUBE PRN PRN For Clogged Feeding Tube Sodium Bicarbonate 650 mg 06/06/20 10:00 06/09/20 22:06 Sodium Bicarbonate PO 650 mg BID NELSON Administration Sodium Chloride 10 ml 05/28/20 22:00 06/10/20 00:11 Sodium Chloride Flush Syringe 10 Ml IV 10 ml BID NELSON Administration Sodium Chloride 10 ml 05/28/20 19:08 Sodium Chloride Flush Syringe 10 Ml IV PRN PRN LINE FLUSH
[2020-06-10] MEDS: amLODIPine 10 MG TAB PO SCH (10:38)
[2020-06-10] MEDS: carvediloL 12.5 MG TAB PO SCH ×2 (10:38→22:23)
[2020-06-10] MEDS: levETIRAcetam 500 MG TAB PO SCH ×2 (10:38→22:17)
[2020-06-10] MEDS: SODIUM BICARBONATE 650 MG TAB PO SCH ×2 (10:38→22:17)
[2020-06-10] MEDS: SENNOSIDES ORAL LIQD 8.8 MG/5 ML ORAL LIQD FEEDTUBE SCH ×2 (10:39→22:17)
[2020-06-10] MEDS: LANSOPRAZOLE 30 MG SOLUTAB FEEDTUBE SCH ×2 (10:39→22:18)
[2020-06-10] MEDS: HEPARIN/ 0.45% NACL DRIP 25,000 UNIT/500 ML BAG IV SCH (10:40)
--- NOTE | 2020-06-10 12:06 | Progress Note ---
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 Well-preserved left ventricular systolic function. Conservative cardiac management. Will follow intermittently. Subjective Date of service: 06/10/20 Principal diagnosis: Ac hypoxemic resp failure; COVID-19; pneumonia; CHF; Pulm HTN; OHS; DM II Interval history: Remains intubated. No cardiac events reported. Sinus rhythm on athletic monitor. Objective Vital Signs Temp Pulse Pulse Resp BP Pulse Ox 06/10/20 11:48 99.4 F 06/10/20 10:39 80 138/57 96 06/10/20 10:38 79 138/57 06/10/20 10:21 79 138/57 99 06/10/20 09:01 74 13 138/51 97 06/10/20 08:30 82 19 163/56 98 06/10/20 08:01 81 19 146/61 99 06/10/20 08:00 98.9 F 80 80 14 99 06/10/20 07:30 89 13 172/63 100 06/10/20 07:09 80 167/60 06/10/20 07:01 81 11 L 167/60 99 06/10/20 06:30 72 15 125/48 98 06/10/20 06:01 73 14 113/40 98 06/10/20 05:31 70 18 113/40 99 06/10/20 05:00 79 14 134/52 98 06/10/20 04:31 87 16 142/56 99 06/10/20 04:22 85 98 06/10/20 04:01 91 H 10 L 132/52 98 06/10/20 04:00 100.2 F H 91 H 91 H 14 98 06/10/20 03:31 79 14 132/52 96 06/10/20 03:00 85 15 156/58 95 06/10/20 02:31 84 16 138/57 96 06/10/20 02:00 91 H 13 165/64 99 06/10/20 01:31 96 H 13 168/64 99 06/10/20 01:00 83 14 165/59 98 06/10/20 00:31 84 165/65 97 06/10/20 00:18 89 169/68 99 06/10/20 00:01 81 172/63 98 06/10/20 00:00 100.1 F H 84 81 14 98 06/09/20 23:39 79 175/66 97 06/09/20 23:30 80 175/66 98 06/09/20 23:15 82 171/73 98 06/09/20 23:01 83 154/67 97 06/09/20 22:45 92 H 173/71 99 06/09/20 22:31 88 173/71 99 06/09/20 22:15 92 H 164/66 99 06/09/20 22:07 86 164/66 06/09/20 22:06 83 164/66 06/09/20 22:01 85 164/66 98 06/09/20 21:45 87 184/71 99 06/09/20 21:30 84 161/63 97 06/09/20 21:15 84 172/73 98 06/09/20 21:05 93 H 172/73 06/09/20 21:00 93 H 172/73 99 06/09/20 20:54 95 H 193/76 99 06/09/20 20:46 99 H 193/76 99 06/09/20 20:30 96 H 180/60 98 06/09/20 20:16 99 H 180/60 97 06/09/20 20:00 100.4 F H 102 H 102 H 20 178/73 97 06/09/20 19:46 100 H 186/67 98 06/09/20 19:30 103 H 186/78 97 06/09/20 19:16 102 H 186/78 98 06/09/20 19:00 103 H 176/80 98 06/09/20 18:46 101 H 176/80 98 06/09/20 18:30 91 H 181/70 98 06/09/20 18:20 88 161/68 96 06/09/20 18:10 90 170/71 97 06/09/20 18:00 92 H 177/85 97 06/09/20 17:50 100 H 177/85 98 06/09/20 17:40 97 H 171/81 98 06/09/20 17:30 94 H 171/81 97 06/09/20 17:20 95 H 182/74 97 06/09/20 17:10 95 H 173/69 98 09/01/20 17:00 173/69 97 06/09/20 16:50 92 H 14 170/61 99 06/09/20 16:40 97 H 18 176/68 97 06/09/20 16:30 98 H 16 162/58 99 06/09/20 16:20 88 18 154/53 98 06/09/20 16:10 85 17 162/58 98 06/09/20 16:00 100.9 F H 85 85 15 162/58 97 06/09/20 15:50 97 H 15 146/58 99 06/09/20 15:40 95 H 16 146/58 99 06/09/20 15:30 88 14 146/58 98 06/09/20 15:20 90 16 161/58 98 06/09/20 15:10 94 H 15 128/107 98 06/09/20 15:00 93 H 13 128/107 99 06/09/20 14:50 93 H 17 166/62 98 06/09/20 14:40 91 H 15 171/62 98 06/09/20 14:30 96 H 17 150/98 98 06/09/20 14:20 92 H 17 150/98 98 06/09/20 14:10 87 16 154/53 96 06/09/20 14:00 87 17 154/53 97 06/09/20 13:50 85 16 159/67 98 06/09/20 13:40 91 H 17 124/68 98 06/09/20 13:30 96 H 20 156/51 97 06/09/20 13:28 92 H 156/51 06/09/20 13:27 93 H 156/51 06/09/20 13:20 94 H 20 156/51 97 06/09/20 13:10 95 H 21 159/67 98 06/09/20 13:00 98 H 19 168/135 98 06/09/20 12:50 101 H 20 168/135 98 06/09/20 12:40 86 19 176/56 97 06/09/20 12:30 87 21 176/56 97 06/09/20 12:20 92 H 19 171/54 97 06/09/20 12:10 98 H 20 168/135 97 - Physical Examination Narrative exam: Deferred due to coronavirus isolation protocol. HEENT: Positive: Other (intubated) Cardiac: Positive: Reg Rate and Rhythm - Labs and Meds Comprehensive Metabolic Panel 06/10/20 Range/Units 07:40 Sodium 146 H D (137-145) mmol/L Potassium 4.1 (3.6-5.0) mmol/L Chloride 105.9 (98-107) mmol/L Carbon Dioxide 20 L (22-30) mmol/L BUN 99 H (7-17) mg/dL Creatinine 1.9 H (0.6-1.2) mg/dL Glucose 121 H (65-100) mg/dL Calcium 8.2 L (8.4-10.2) mg/dL - Allied health notes Allied health notes reviewed: nursing
--- NOTE | 2020-06-10 12:17 | Progress Note ---
Assessment and Plan Acute hypoxemic respiratory failure on MVS Coronavirus-19 infection. Bilateral pulmonary infiltrates, bilateral pneumonia plus likely element of Pulmonary edema. Bilateral pulmonary edema. Bilateral pleural effusions. History of congestive heart failure. Morbid obesity. History of pulmonary hypertension. History of hypertension. Diabetes. Obesity hypoventilation syndrome. Elevated serum inflammatory markers to include D-dimers and LDH levels. Hyperkalemia at presentation. Metabolic acidosis. Oropharyngeal dysphagia. - repeat CXR in am - keep on SBT till 10 pm, rest overnight on AC and tentative extubation in the morning - increase Reglan frequency to q6h - continue Robinul and scopolamine for secretions control (improved) - continue care as below otherwise; - strict I's and O's - continue care as below otherwise; - continue Daily SAT and SBT assessment as tolerated - continue to wean supplemental oxygen for target O2 sat's > 90% acutely - VAP bundle addressed - continue lung protective strategies - continue bronchodilators with pulmonary hygiene per RT - wean per pulmonary driven protocols otherwise - continue accuchecks resumed with glycemic control per SSI (While critically il l target blood glucose of 140-180 mg/dL; avoid hypoglycemia) - sedation prn for target RASS 0 to -1 - continue to avoid benzodiazepine's, reduce the possibility of delirium - azotemia per nephrology - continue to avoid nephrotoxins and renally dose all medications - completed AB's per ID rec's - prn analgesia per CPOT score - Maintenance of sleep-wake cycle, avoid delirium - continue enteral nutritional support at goal rate as tolerated - G.I. & VTE prophylaxis - PT/OT/ROM exercises - continue mobility protocols for pressure ulcer prophylaxis - Monitor hemodynamics closely - continue other care per attending / other consultants - discharge planning ongoing concurrently .... Re-evaluate in am & prn CONDITION: CRITICAL PROGNOSIS: GUARDED CODE STATUS: FULL CODE The high probability of a clinically significant, sudden or life-threatening deterioration of the [respiratory, cardiovascular, renal & neurologic] system(s) required my full and direct attention, intervention and personal management. The aggregate critical care time was [32] minutes without overlap. Time includes spent on; [x] Data Review and interpretation [x] Patient assessment and monitoring of vital signs [x] Documentation [x] Medication orders and management Subjective Date of service: 06/10/20 Principal diagnosis: Ac hypoxemic resp failure; COVID-19; pneumonia; CHF; Pulm HTN; OHS; DM II Interval history: Patient is seen today for: Ac hypoxemic resp failure; Coronavirus-19 infection; pneumonia; Pulmonary edema; Bilateral pleural effusions; CHF; Morbid obesity; pulmonary hypertension; OHS; DM II Seen and examined at bedside; 24hour events reviewed; nursing and respiratory ca re staff consulted; no adverse overnight events reported to me; resting peacefully in bed; remains on MVS; tolerating SBT much better; denies pain; No N/V/F/C; gastric residuals still elevated but no emesis Objective Vital Signs - 12hr 06/10/20 06/10/20 06/10/20 00:18 00:31 01:00 Temperature Pulse Rate 89 84 83 Pulse Rate [ From Monitor] Respiratory 14 Rate Blood Pressure 169/68 165/65 165/59 O2 Sat by Pulse 99 97 98 Oximetry 06/10/20 06/10/20 06/10/20 01:31 02:00 02:31 Temperature Pulse Rate 96 H 91 H 84 Pulse Rate [ From Monitor] Respiratory 13 13 16 Rate Blood Pressure 168/64 165/64 138/57 O2 Sat by Pulse 99 99 96 Oximetry 06/10/20 06/10/20 06/10/20 03:00 03:31 04:00 Temperature 100.2 F H Pulse Rate 85 79 91 H Pulse Rate [ 91 H From Monitor] Respiratory 15 14 14 Rate Blood Pressure 156/58 132/52 O2 Sat by Pulse 95 96 98 Oximetry 06/10/20 06/10/20 06/10/20 04:01 04:22 04:31 Temperature Pulse Rate 91 H 85 87 Pulse Rate [ From Monitor] Respiratory 10 L 16 Rate Blood Pressure 132/52 142/56 O2 Sat by Pulse 98 98 99 Oximetry 06/10/20 06/10/20 06/10/20 05:00 05:31 06:01 Temperature Pulse Rate 79 70 73 Pulse Rate [ From Monitor] Respiratory 14 18 14 Rate Blood Pressure 134/52 113/40 113/40 O2 Sat by Pulse 98 99 98 Oximetry 06/10/20 06/10/20 06/10/20 06:30 07:01 07:09 Temperature Pulse Rate 72 81 80 Pulse Rate [ From Monitor] Respiratory 15 11 L Rate Blood Pressure 125/48 167/60 167/60 O2 Sat by Pulse 98 99 Oximetry 06/10/20 06/10/20 06/10/20 07:30 08:00 08:01 Temperature 98.9 F Pulse Rate 89 80 81 Pulse Rate [ 80 From Monitor] Respiratory 13 14 19 Rate Blood Pressure 172/63 146/61 O2 Sat by Pulse 100 99 99 Oximetry 06/10/20 06/10/20 06/10/20 08:30 09:01 10:21 Temperature Pulse Rate 82 74 79 Pulse Rate [ From Monitor] Respiratory 19 13 Rate Blood Pressure 163/56 138/51 138/57 O2 Sat by Pulse 98 97 99 Oximetry 06/10/20 06/10/20 06/10/20 10:38 10:39 11:48 Temperature 99.4 F Pulse Rate 79 80 Pulse Rate [ From Monitor] Respiratory Rate Blood Pressure 138/57 138/57 O2 Sat by Pulse 96 Oximetry Constitutional: no acute distress, other (elderly looking obese female riding set rate on MVS at rest) Eyes: non-icteric ENT: oropharynx moist, other (ETT 23 cm AYAN) Neck: supple, no lymphadenopathy, no JVD, other (ETT 23 cm AYAN) Effort: mildly labored Ascultation: Bilateral: diminished breath sounds, rhonchi Percussion: Bilateral: not dull Cardiovascular: regular rate and rhythm Gastrointestinal: normoactive bowel sounds, soft, non-tender, non-distended Integumentary: normal Extremities: no cyanosis, no edema, pink and warm, pulses normal, no ischemia or petechiae Neurologic: non-focal exam (grossly), pupils equal and round, motor strength nor mal and, unable to assess Psychiatric: mood appropriate, affect normal CBC and BMP: 06/09/20 05:16 06/10/20 07:40 ABG, PT/INR, D-dimer: ABG ABG pH 7.317 pH Units (7.350-7.450) L 06/07/20 04:54 ABG pCO2 41.9 mm Hg 06/07/20 04:54 ABG pO2 71.4 mm Hg (80.0-90.0) L 06/07/20 04:54 ABG O2 Saturation 94.3 % (95.0-99.0) L 06/07/20 04:54 PT/INR, D-dimer PT 14.2 Sec. (12.2-14.9) 05/29/20 15:10 INR 1.08 (0.87-1.13) 05/29/20 15:10 D-Dimer 414.52 ng/mlDDU (0-234) H 06/04/20 04:19 Abnormal lab findings: Abnormal Labs 05/28/20 05/28/20 05/28/20 13:29 13:47 13:47 WBC RBC Hgb Hct RDW 15.3 H Lymph % (Auto) [place] % (Auto) Lymph # [place] # Seg Neutrophils % Seg Neuts % (Manual) Lymphocytes % (Manual) Seg Neutrophils # Seg Neutrophils # Man Lymphocytes # (Manual) Monocytes # (Manual) D-Dimer Heparin Anti-Xa Level ABG pH ABG pO2 ABG HCO3 ABG O2 Saturation ABG Base Excess ABG Hemoglobin VBG pH Oxyhemoglobin Sodium Potassium 6.6 H* Chloride 109.2 H Carbon Dioxide 17 L BUN 29 H Creatinine 1.3 H Glucose 265 H POC Glucose 248 H Lactic Acid Calcium 8.1 L AST 63 H Alkaline Phosphatase Lactate Dehydrogenase Total Creatine Kinase 301 H CK-MB (CK-2) 4.3 H C-Reactive Protein Total Protein 5.4 L Albumin 2.6 L Urine WBC (Auto) Urine Creatinine Urine Total Protein Coronavirus (PCR) 05/28/20 05/28/20 05/28/20 13:47 13:47 14:46 WBC RBC Hgb Hct RDW Lymph % (Auto) [place] % (Auto) Lymph # [place] # Seg Neutrophils % Seg Neuts % (Manual) Lymphocytes % (Manual) Seg Neutrophils # Seg Neutrophils # Man Lymphocytes # (Manual) Monocytes # (Manual) D-Dimer Heparin Anti-Xa Level ABG pH ABG pO2 ABG HCO3 ABG O2 Saturation ABG Base Excess ABG Hemoglobin VBG pH 7.152 L* Oxyhemoglobin Sodium Potassium 7.2 H* Chloride Carbon Dioxide BUN Creatinine Glucose POC Glucose Lactic Acid 3.40 H* Calcium AST Alkaline Phosphatase Lactate Dehydrogenase Total Creatine Kinase CK-MB (CK-2) C-Reactive Protein Total Protein Albumin Urine WBC (Auto) Urine Creatinine Urine Total Protein Coronavirus (PCR) 05/28/20 05/28/20 05/28/20 15:33 15:33 15:51 WBC RBC Hgb Hct RDW Lymph % (Auto) [place] % (Auto) Lymph # [place] # Seg Neutrophils % Seg Neuts % (Manual) Lymphocytes % (Manual) Seg Neutrophils # Seg Neutrophils # Man Lymphocytes # (Manual) Monocytes # (Manual) D-Dimer 8780.43 H Heparin Anti-Xa Level ABG pH 7.284 L ABG pO2 273.0 H ABG HCO3 ABG O2 Saturation 99.4 H ABG Base Excess -6.1 L ABG Hemoglobin 17.2 H VBG pH Oxyhemoglobin Sodium Potassium Chloride Carbon Dioxide BUN Creatinine Glucose 152 H POC Glucose Lactic Acid Calcium AST Alkaline Phosphatase Lactate Dehydrogenase 365 H Total Creatine Kinase CK-MB (CK-2) C-Reactive Protein Total Protein Albumin Urine WBC (Auto) Urine Creatinine Urine Total Protein Coronavirus (PCR) 05/28/20 05/28/20 05/28/20 16:30 20:41 23:20 WBC RBC Hgb Hct RDW Lymph % (Auto) [place] % (Auto) Lymph # [place] # Seg Neutrophils % Seg Neuts % (Manual) Lymphocytes % (Manual) Seg Neutrophils # Seg Neutrophils # Man Lymphocytes # (Manual) Monocytes # (Manual) D-Dimer Heparin Anti-Xa Level ABG pH ABG pO2 ABG HCO3 ABG O2 Saturation ABG Base Excess ABG Hemoglobin VBG pH Oxyhemoglobin Sodium Potassium Chloride Carbon Dioxide BUN Creatinine Glucose POC Glucose 225 H 224 H Lactic Acid Calcium AST Alkaline Phosphatase Lactate Dehydrogenase Total Creatine Kinase CK-MB (CK-2) C-Reactive Protein Total Protein Albumin Urine WBC (Auto) 17.0 H Urine Creatinine Urine Total Protein Coronavirus (PCR) 05/28/20 05/29/20 05/29/20 Unknown 04:35 04:43 WBC RBC 3.48 L Hgb 9.8 L Hct 29.4 L RDW 16.0 H Lymph % (Auto) 7.4 L [place] % (Auto) Lymph # 0.7 L [place] # Seg Neutrophils % 89.1 H Seg Neuts % (Manual) Lymphocytes % (Manual) Seg Neutrophils # 8.1 H Seg Neutrophils # Man Lymphocytes # (Manual) Monocytes # (Manual) D-Dimer Heparin Anti-Xa Level ABG pH ABG pO2 ABG HCO3 19.3 L ABG O2 Saturation ABG Base Excess -4.5 L ABG Hemoglobin 9.7 L VBG pH Oxyhemoglobin Sodium Potassium Chloride Carbon Dioxide BUN Creatinine Glucose POC Glucose Lactic Acid Calcium AST Alkaline Phosphatase Lactate Dehydrogenase Total Creatine Kinase CK-MB (CK-2) C-Reactive Protein Total Protein Albumin Urine WBC (Auto) Urine Creatinine Urine Total Protein Coronavirus (PCR) Positive A 05/29/20 05/29/20 05/29/20 04:43 15:10 17:17 WBC RBC Hgb 9.3 L Hct 28.7 L RDW Lymph % (Auto) [place] % (Auto) Lymph # [place] # Seg Neutrophils % Seg Neuts % (Manual) Lymphocytes % (Manual) Seg Neutrophils # Seg Neutrophils # Man Lymphocytes # (Manual) Monocytes # (Manual) D-Dimer Heparin Anti-Xa Level ABG pH ABG pO2 ABG HCO3 ABG O2 Saturation ABG Base Excess ABG Hemoglobin VBG pH Oxyhemoglobin Sodium Potassium Chloride 110.2 H Carbon Dioxide 18 L BUN 32 H Creatinine 1.4 H Glucose 180 H POC Glucose 147 H Lactic Acid Calcium AST Alkaline Phosphatase Lactate Dehydrogenase Total Creatine Kinase CK-MB (CK-2) C-Reactive Protein Total Protein Albumin Urine WBC (Auto) Urine Creatinine Urine Total Protein Coronavirus (PCR) 05/30/20 05/30/20 05/30/20 00:08 00:12 04:15 WBC RBC Hgb Hct RDW Lymph % (Auto) [place] % (Auto) Lymph # [place] # Seg Neutrophils % Seg Neuts % (Manual) Lymphocytes % (Manual) Seg Neutrophils # Seg Neutrophils # Man Lymphocytes # (Manual) Monocytes # (Manual) D-Dimer Heparin Anti-Xa Level 0.71 H ABG pH 7.460 H ABG pO2 106.0 H ABG HCO3 18.9 L ABG O2 Saturation ABG Base Excess -4.4 L ABG Hemoglobin 6.8 L VBG pH Oxyhemoglobin Sodium Potassium Chloride Carbon Dioxide BUN Creatinine Glucose POC Glucose 195 H Lactic Acid Calcium AST Alkaline Phosphatase Lactate Dehydrogenase Total Creatine Kinase CK-MB (CK-2) C-Reactive Protein Total Protein Albumin Urine WBC (Auto) Urine Creatinine Urine Total Protein Coronavirus (PCR) 05/30/20 05/30/20 05/30/20 06:07 08:37 12:33 WBC RBC Hgb Hct RDW Lymph % (Auto) [place] % (Auto) Lymph # [place] # Seg Neutrophils % Seg Neuts % (Manual) Lymphocytes % (Manual) Seg Neutrophils # Seg Neutrophils # Man Lymphocytes # (Manual) Monocytes # (Manual) D-Dimer Heparin Anti-Xa Level 0.85 H ABG pH ABG pO2 ABG HCO3 ABG O2 Saturation ABG Base Excess ABG Hemoglobin VBG pH Oxyhemoglobin Sodium Potassium Chloride Carbon Dioxide BUN Creatinine Glucose POC Glucose 182 H 187 H Lactic Acid Calcium AST Alkaline Phosphatase Lactate Dehydrogenase Total Creatine Kinase CK-MB (CK-2) C-Reactive Protein Total Protein Albumin Urine WBC (Auto) Urine Creatinine Urine Total Protein Coronavirus (PCR) 05/30/20 05/30/20 05/30/20 15:58 17:57 23:36 WBC RBC Hgb Hct RDW Lymph % (Auto) [place] % (Auto) Lymph # [place] # Seg Neutrophils % Seg Neuts % (Manual) Lymphocytes % (Manual) Seg Neutrophils # Seg Neutrophils # Man Lymphocytes # (Manual) Monocytes # (Manual) D-Dimer Heparin Anti-Xa Level 1.03 H ABG pH ABG pO2 ABG HCO3 ABG O2 Saturation ABG Base Excess ABG Hemoglobin VBG pH Oxyhemoglobin Sodium Potassium Chloride Carbon Dioxide BUN Creatinine Glucose POC Glucose 208 H 185 H Lactic Acid Calcium AST Alkaline Phosphatase Lactate Dehydrogenase Total Creatine Kinase CK-MB (CK-2) C-Reactive Protein Total Protein Albumin Urine WBC (Auto) Urine Creatinine Urine Total Protein Coronavirus (PCR) 05/31/20 05/31/20 05/31/20 02:16 03:55 06:16 WBC RBC Hgb 9.2 L Hct 27.5 L RDW Lymph % (Auto) [place] % (Auto) Lymph # [place] # Seg Neutrophils % Seg Neuts % (Manual) Lymphocytes % (Manual) Seg Neutrophils # Seg Neutrophils # Man Lymphocytes # (Manual) Monocytes # (Manual) D-Dimer Heparin Anti-Xa Level ABG pH ABG pO2 94.7 H ABG HCO3 18.6 L ABG O2 Saturation ABG Base Excess -5.5 L ABG Hemoglobin 7.9 L VBG pH Oxyhemoglobin Sodium Potassium Chloride Carbon Dioxide BUN Creatinine Glucose POC Glucose 160 H Lactic Acid Calcium AST Alkaline Phosphatase Lactate Dehydrogenase Total Creatine Kinase CK-MB (CK-2) C-Reactive Protein Total Protein Albumin Urine WBC (Auto) Urine Creatinine Urine Total Protein Coronavirus (PCR) 05/31/20 05/31/20 05/31/20 12:20 13:03 18:13 WBC RBC Hgb Hct RDW Lymph % (Auto) [place] % (Auto) Lymph # [place] # Seg Neutrophils % Seg Neuts % (Manual) Lymphocytes % (Manual) Seg Neutrophils # Seg Neutrophils # Man Lymphocytes # (Manual) Monocytes # (Manual) D-Dimer Heparin Anti-Xa Level ABG pH ABG pO2 ABG HCO3 ABG O2 Saturation ABG Base Excess ABG Hemoglobin VBG pH Oxyhemoglobin Sodium Potassium Chloride Carbon Dioxide 18 L BUN 48 H Creatinine 1.6 H Glucose 115 H POC Glucose 128 H 159 H Lactic Acid Calcium 8.3 L AST Alkaline Phosphatase Lactate Dehydrogenase Total Creatine Kinase CK-MB (CK-2) C-Reactive Protein Total Protein 5.4 L Albumin 2.4 L Urine WBC (Auto) Urine Creatinine Urine Total Protein Coronavirus (PCR) 05/31/20 06/01/20 06/01/20 23:51 04:00 05:48 WBC RBC Hgb Hct RDW Lymph % (Auto) [place] % (Auto) Lymph # [place] # Seg Neutrophils % Seg Neuts % (Manual) Lymphocytes % (Manual) Seg Neutrophils # Seg Neutrophils # Man Lymphocytes # (Manual) Monocytes # (Manual) D-Dimer Heparin Anti-Xa Level ABG pH ABG pO2 109.8 H ABG HCO3 18.8 L ABG O2 Saturation ABG Base Excess -5.9 L ABG Hemoglobin 7.8 L VBG pH Oxyhemoglobin Sodium Potassium Chloride Carbon Dioxide BUN Creatinine Glucose POC Glucose 171 H 133 H Lactic Acid Calcium AST Alkaline Phosphatase Lactate Dehydrogenase Total Creatine Kinase CK-MB (CK-2) C-Reactive Protein Total Protein Albumin Urine WBC (Auto) Urine Creatinine Urine Total Protein Coronavirus (PCR) 06/01/20 06/01/20 06/02/20 12:28 17:29 00:08 WBC RBC Hgb Hct RDW Lymph % (Auto) [place] % (Auto) Lymph # [place] # Seg Neutrophils % Seg Neuts % (Manual) Lymphocytes % (Manual) Seg Neutrophils # Seg Neutrophils # Man Lymphocytes # (Manual) Monocytes # (Manual) D-Dimer Heparin Anti-Xa Level ABG pH ABG pO2 ABG HCO3 ABG O2 Saturation ABG Base Excess ABG Hemoglobin VBG pH Oxyhemoglobin Sodium Potassium Chloride Carbon Dioxide BUN Creatinine Glucose POC Glucose 199 H 209 H 162 H Lactic Acid Calcium AST Alkaline Phosphatase Lactate Dehydrogenase Total Creatine Kinase CK-MB (CK-2) C-Reactive Protein Total Protein Albumin Urine WBC (Auto) Urine Creatinine Urine Total Protein Coronavirus (PCR) 06/02/20 06/02/20 06/02/20 04:20 04:20 04:44 WBC RBC Hgb 10.0 L Hct RDW Lymph % (Auto) [place] % (Auto) Lymph # [place] # Seg Neutrophils % Seg Neuts % (Manual) Lymphocytes % (Manual) Seg Neutrophils # Seg Neutrophils # Man Lymphocytes # (Manual) Monocytes # (Manual) D-Dimer Heparin Anti-Xa Level 0.10 L ABG pH ABG pO2 150.6 H ABG HCO3 ABG O2 Saturation ABG Base Excess -4.1 L ABG Hemoglobin 11.8 L VBG pH Oxyhemoglobin Sodium Potassium Chloride Carbon Dioxide BUN Creatinine Glucose POC Glucose Lactic Acid Calcium AST Alkaline Phosphatase Lactate Dehydrogenase Total Creatine Kinase CK-MB (CK-2) C-Reactive Protein Total Protein Albumin Urine WBC (Auto) Urine Creatinine Urine Total Protein Coronavirus (PCR) 06/02/20 06/02/20 06/02/20 05:53 12:04 13:49 WBC RBC Hgb Hct RDW Lymph % (Auto) [place] % (Auto) Lymph # [place] # Seg Neutrophils % Seg Neuts % (Manual) Lymphocytes % (Manual) Seg Neutrophils # Seg Neutrophils # Man Lymphocytes # (Manual) Monocytes # (Manual) D-Dimer Heparin Anti-Xa Level 0.28 L ABG pH ABG pO2 ABG HCO3 ABG O2 Saturation ABG Base Excess ABG Hemoglobin VBG pH Oxyhemoglobin Sodium Potassium Chloride Carbon Dioxide BUN Creatinine Glucose POC Glucose 149 H 220 H Lactic Acid Calcium AST Alkaline Phosphatase Lactate Dehydrogenase Total Creatine Kinase CK-MB (CK-2) C-Reactive Protein Total Protein Albumin Urine WBC (Auto) Urine Creatinine Urine Total Protein Coronavirus (PCR) 06/02/20 06/02/20 06/03/20 13:49 18:31 00:42 WBC RBC Hgb Hct RDW Lymph % (Auto) [place] % (Auto) Lymph # [place] # Seg Neutrophils % Seg Neuts % (Manual) Lymphocytes % (Manual) Seg Neutrophils # Seg Neutrophils # Man Lymphocytes # (Manual) Monocytes # (Manual) D-Dimer 769.68 H Heparin Anti-Xa Level ABG pH ABG pO2 ABG HCO3 ABG O2 Saturation ABG Base Excess ABG Hemoglobin VBG pH Oxyhemoglobin Sodium Potassium Chloride Carbon Dioxide BUN Creatinine Glucose POC Glucose 225 H 212 H Lactic Acid Calcium AST Alkaline Phosphatase Lactate Dehydrogenase Total Creatine Kinase CK-MB (CK-2) C-Reactive Protein Total Protein Albumin Urine WBC (Auto) Urine Creatinine Urine Total Protein Coronavirus (PCR) 06/03/20 06/03/20 06/03/20 05:16 05:16 05:25 WBC 11.4 H RBC Hgb Hct RDW 16.4 H Lymph % (Auto) [place] % (Auto) Lymph # [place] # Seg Neutrophils % Seg Neuts % (Manual) Lymphocytes % (Manual) Seg Neutrophils # Seg Neutrophils # Man Lymphocytes # (Manual) Monocytes # (Manual) D-Dimer Heparin Anti-Xa Level ABG pH ABG pO2 160.9 H ABG HCO3 19.4 L ABG O2 Saturation ABG Base Excess -4.9 L ABG Hemoglobin 7.0 L VBG pH Oxyhemoglobin Sodium Potassium Chloride Carbon Dioxide 18 L BUN 65 H Creatinine 2.0 H Glucose 175 H POC Glucose Lactic Acid Calcium 8.0 L AST Alkaline Phosphatase Lactate Dehydrogenase Total Creatine Kinase CK-MB (CK-2) C-Reactive Protein Total Protein 5.5 L Albumin 2.2 L Urine WBC (Auto) Urine Creatinine Urine Total Protein Coronavirus (PCR) 06/03/20 06/03/20 06/03/20 06:07 11:58 18:24 WBC RBC Hgb Hct RDW Lymph % (Auto) [place] % (Auto) Lymph # [place] # Seg Neutrophils % Seg Neuts % (Manual) Lymphocytes % (Manual) Seg Neutrophils # Seg Neutrophils # Man Lymphocytes # (Manual) Monocytes # (Manual) D-Dimer Heparin Anti-Xa Level ABG pH ABG pO2 ABG HCO3 ABG O2 Saturation ABG Base Excess ABG Hemoglobin VBG pH Oxyhemoglobin Sodium Potassium Chloride Carbon Dioxide BUN Creatinine Glucose POC Glucose 177 H 163 H 211 H Lactic Acid Calcium AST Alkaline Phosphatase Lactate Dehydrogenase Total Creatine Kinase CK-MB (CK-2) C-Reactive Protein Total Protein Albumin Urine WBC (Auto) Urine Creatinine Urine Total Protein Coronavirus (PCR) 06/03/20 06/03/20 06/04/20 21:50 Unknown 00:26 WBC RBC Hgb Hct RDW Lymph % (Auto) [place] % (Auto) Lymph # [place] # Seg Neutrophils % Seg Neuts % (Manual) Lymphocytes % (Manual) Seg Neutrophils # Seg Neutrophils # Man Lymphocytes # (Manual) Monocytes # (Manual) D-Dimer Heparin Anti-Xa Level ABG pH ABG pO2 ABG HCO3 ABG O2 Saturation ABG Base Excess ABG Hemoglobin VBG pH Oxyhemoglobin Sodium 135 L Potassium Chloride Carbon Dioxide 18 L BUN Creatinine Glucose POC Glucose 241 H Lactic Acid Calcium AST Alkaline Phosphatase Lactate Dehydrogenase Total Creatine Kinase CK-MB (CK-2) C-Reactive Protein Total Protein Albumin Urine WBC (Auto) 11.0 H Urine Creatinine Urine Total Protein Coronavirus (PCR) 06/04/20 06/04/20 06/04/20 03:35 04:19 04:19 WBC RBC 3.15 L Hgb 8.9 L Hct 26.8 L D RDW 15.9 H Lymph % (Auto) 6.0 L [place] % (Auto) Lymph # 0.6 L [place] # Seg Neutrophils % 86.6 H Seg Neuts % (Manual) Lymphocytes % (Manual) Seg Neutrophils # 9.1 H Seg Neutrophils # Man Lymphocytes # (Manual) Monocytes # (Manual) D-Dimer Heparin Anti-Xa Level ABG pH 7.331 L ABG pO2 ABG HCO3 ABG O2 Saturation ABG Base Excess -4.7 L ABG Hemoglobin 11.0 L VBG pH Oxyhemoglobin 93.9 L Sodium 136 L Potassium Chloride Carbon Dioxide 20 L BUN 73 H Creatinine 2.0 H Glucose 192 H POC Glucose Lactic Acid Calcium 8.0 L AST Alkaline Phosphatase Lactate Dehydrogenase 271 H Total Creatine Kinase CK-MB (CK-2) C-Reactive Protein 2.20 H Total Protein 5.0 L Albumin 2.0 L Urine WBC (Auto) Urine Creatinine Urine Total Protein Coronavirus (PCR) 06/04/20 06/04/20 06/04/20 04:19 05:51 11:48 WBC RBC Hgb Hct RDW Lymph % (Auto) [place] % (Auto) Lymph # [place] # Seg Neutrophils % Seg Neuts % (Manual) Lymphocytes % (Manual) Seg Neutrophils # Seg Neutrophils # Man Lymphocytes # (Manual) Monocytes # (Manual) D-Dimer 414.52 H Heparin Anti-Xa Level ABG pH ABG pO2 ABG HCO3 ABG O2 Saturation ABG Base Excess ABG Hemoglobin VBG pH Oxyhemoglobin Sodium Potassium Chloride Carbon Dioxide BUN Creatinine Glucose POC Glucose 179 H 213 H Lactic Acid Calcium AST Alkaline Phosphatase Lactate Dehydrogenase Total Creatine Kinase CK-MB (CK-2) C-Reactive Protein Total Protein Albumin Urine WBC (Auto) Urine Creatinine Urine Total Protein Coronavirus (PCR) 06/04/20 06/05/20 06/05/20 18:25 00:16 05:00 WBC RBC Hgb Hct RDW Lymph % (Auto) [place] % (Auto) Lymph # [place] # Seg Neutrophils % Seg Neuts % (Manual) Lymphocytes % (Manual) Seg Neutrophils # Seg Neutrophils # Man Lymphocytes # (Manual) Monocytes # (Manual) D-Dimer Heparin Anti-Xa Level ABG pH 7.286 L ABG pO2 96.2 H ABG HCO3 ABG O2 Saturation ABG Base Excess -6.3 L ABG Hemoglobin 8.8 L VBG pH Oxyhemoglobin 94.8 L Sodium Potassium Chloride Carbon Dioxide BUN Creatinine Glucose POC Glucose 238 H 183 H Lactic Acid Calcium AST Alkaline Phosphatase Lactate Dehydrogenase Total Creatine Kinase CK-MB (CK-2) C-Reactive Protein Total Protein Albumin Urine WBC (Auto) Urine Creatinine Urine Total Protein Coronavirus (PCR) 06/05/20 06/05/20 06/05/20 05:39 07:25 07:25 WBC RBC 2.97 L Hgb 8.7 L Hct 25.7 L RDW 16.0 H Lymph % (Auto) 8.8 L [place] % (Auto) 13.3 H Lymph # 0.8 L [place] # 1.3 H Seg Neutrophils % 77.3 H Seg Neuts % (Manual) Lymphocytes % (Manual) Seg Neutrophils # Seg Neutrophils # Man Lymphocytes # (Manual) Monocytes # (Manual) D-Dimer Heparin Anti-Xa Level ABG pH ABG pO2 ABG HCO3 ABG O2 Saturation ABG Base Excess ABG Hemoglobin VBG pH Oxyhemoglobin Sodium 133 L Potassium Chloride Carbon Dioxide 17 L BUN 89 H Creatinine 2.8 H Glucose 176 H POC Glucose 149 H Lactic Acid Calcium 7.7 L AST Alkaline Phosphatase Lactate Dehydrogenase Total Creatine Kinase CK-MB (CK-2) C-Reactive Protein Total Protein 4.2 L Albumin 1.9 L Urine WBC (Auto) Urine Creatinine Urine Total Protein Coronavirus (PCR) 06/05/20 06/05/20 06/05/20 07:25 12:05 15:41 WBC RBC Hgb Hct RDW Lymph % (Auto) [place] % (Auto) Lymph # [place] # Seg Neutrophils % Seg Neuts % (Manual) Lymphocytes % (Manual) Seg Neutrophils # Seg Neutrophils # Man Lymphocytes # (Manual) Monocytes # (Manual) D-Dimer Heparin Anti-Xa Level 0.76 H 0.81 H ABG pH ABG pO2 ABG HCO3 ABG O2 Saturation ABG Base Excess ABG Hemoglobin VBG pH Oxyhemoglobin Sodium Potassium Chloride Carbon Dioxide BUN Creatinine Glucose POC Glucose 198 H Lactic Acid Calcium AST Alkaline Phosphatase Lactate Dehydrogenase Total Creatine Kinase CK-MB (CK-2) C-Reactive Protein Total Protein Albumin Urine WBC (Auto) Urine Creatinine Urine Total Protein Coronavirus (PCR) 06/05/20 06/05/20 06/06/20 18:08 23:25 04:00 WBC RBC Hgb Hct RDW Lymph % (Auto) [place] % (Auto) Lymph # [place] # Seg Neutrophils % Seg Neuts % (Manual) Lymphocytes % (Manual) Seg Neutrophils # Seg Neutrophils # Man Lymphocytes # (Manual) Monocytes # (Manual) D-Dimer Heparin Anti-Xa Level ABG pH ABG pO2 ABG HCO3 ABG O2 Saturation ABG Base Excess ABG Hemoglobin VBG pH Oxyhemoglobin Sodium Potassium Chloride Carbon Dioxide BUN Creatinine Glucose POC Glucose 223 H 169 H Lactic Acid Calcium AST Alkaline Phosphatase Lactate Dehydrogenase Total Creatine Kinase CK-MB (CK-2) C-Reactive Protein Total Protein Albumin Urine WBC (Auto) 15.0 H Urine Creatinine Urine Total Protein Coronavirus (PCR) 06/06/20 06/06/20 06/06/20 04:00 05:33 05:38 WBC RBC 2.97 L Hgb 8.7 L Hct 26.8 L RDW 16.8 H Lymph % (Auto) [place] % (Auto) Lymph # [place] # Seg Neutrophils % Seg Neuts % (Manual) Lymphocytes % (Manual) Seg Neutrophils # Seg Neutrophils # Man Lymphocytes # (Manual) Monocytes # (Manual) D-Dimer Heparin Anti-Xa Level ABG pH ABG pO2 ABG HCO3 ABG O2 Saturation ABG Base Excess ABG Hemoglobin VBG pH Oxyhemoglobin Sodium Potassium Chloride Carbon Dioxide BUN Creatinine Glucose POC Glucose 186 H Lactic Acid Calcium AST Alkaline Phosphatase Lactate Dehydrogenase Total Creatine Kinase CK-MB (CK-2) C-Reactive Protein Total Protein Albumin Urine WBC (Auto) Urine Creatinine 82.2 H Urine Total Protein 196 H Coronavirus (PCR) 06/06/20 06/06/20 06/06/20 05:38 12:25 17:03 WBC RBC Hgb Hct RDW Lymph % (Auto) [place] % (Auto) Lymph # [place] # Seg Neutrophils % Seg Neuts % (Manual) Lymphocytes % (Manual) Seg Neutrophils # Seg Neutrophils # Man Lymphocytes # (Manual) Monocytes # (Manual) D-Dimer Heparin Anti-Xa Level ABG pH ABG pO2 ABG HCO3 ABG O2 Saturation ABG Base Excess ABG Hemoglobin VBG pH Oxyhemoglobin Sodium 134 L Potassium 5.2 H Chloride Carbon Dioxide 18 L BUN 97 H Creatinine 2.5 H Glucose 193 H POC Glucose 239 H 252 H Lactic Acid Calcium 7.5 L AST Alkaline Phosphatase Lactate Dehydrogenase Total Creatine Kinase CK-MB (CK-2) C-Reactive Protein Total Protein 4.1 L Albumin 1.9 L Urine WBC (Auto) Urine Creatinine Urine Total Protein Coronavirus (PCR) 06/07/20 06/07/20 06/07/20 00:16 01:49 04:00 WBC RBC 2.91 L Hgb 8.4 L Hct 25.0 L RDW 16.1 H Lymph % (Auto) 5.7 L [place] % (Auto) 10.5 H Lymph # 0.6 L [place] # 1.1 H Seg Neutrophils % 83.6 H Seg Neuts % (Manual) Lymphocytes % (Manual) Seg Neutrophils # 9.1 H Seg Neutrophils # Man Lymphocytes # (Manual) Monocytes # (Manual) D-Dimer Heparin Anti-Xa Level 0.26 L ABG pH ABG pO2 ABG HCO3 ABG O2 Saturation ABG Base Excess ABG Hemoglobin VBG pH Oxyhemoglobin Sodium Potassium Chloride Carbon Dioxide BUN Creatinine Glucose POC Glucose 173 H Lactic Acid Calcium AST Alkaline Phosphatase Lactate Dehydrogenase Total Creatine Kinase CK-MB (CK-2) C-Reactive Protein Total Protein Albumin Urine WBC (Auto) Urine Creatinine Urine Total Protein Coronavirus (PCR) 06/07/20 06/07/20 06/07/20 04:00 04:54 05:51 WBC RBC Hgb Hct RDW Lymph % (Auto) [place] % (Auto) Lymph # [place] # Seg Neutrophils % Seg Neuts % (Manual) Lymphocytes % (Manual) Seg Neutrophils # Seg Neutrophils # Man Lymphocytes # (Manual) Monocytes # (Manual) D-Dimer Heparin Anti-Xa Level ABG pH 7.317 L ABG pO2 71.4 L ABG HCO3 ABG O2 Saturation 94.3 L ABG Base Excess -4.8 L ABG Hemoglobin 7.1 L VBG pH Oxyhemoglobin 92.2 L Sodium 133 L Potassium Chloride Carbon Dioxide 18 L BUN 100 H Creatinine 2.5 H Glucose 158 H POC Glucose 168 H Lactic Acid Calcium 7.6 L AST Alkaline Phosphatase Lactate Dehydrogenase Total Creatine Kinase CK-MB (CK-2) C-Reactive Protein Total Protein 4.7 L Albumin 2.0 L Urine WBC (Auto) Urine Creatinine Urine Total Protein Coronavirus (PCR) 06/07/20 06/07/20 06/07/20 12:03 17:17 20:10 WBC RBC Hgb Hct RDW Lymph % (Auto) [place] % (Auto) Lymph # [place] # Seg Neutrophils % Seg Neuts % (Manual) Lymphocytes % (Manual) Seg Neutrophils # Seg Neutrophils # Man Lymphocytes # (Manual) Monocytes # (Manual) D-Dimer Heparin Anti-Xa Level 0.17 L ABG pH ABG pO2 ABG HCO3 ABG O2 Saturation ABG Base Excess ABG Hemoglobin VBG pH Oxyhemoglobin Sodium Potassium Chloride Carbon Dioxide BUN Creatinine Glucose POC Glucose 276 H 281 H Lactic Acid Calcium AST Alkaline Phosphatase Lactate Dehydrogenase Total Creatine Kinase CK-MB (CK-2) C-Reactive Protein Total Protein Albumin Urine WBC (Auto) Urine Creatinine Urine Total Protein Coronavirus (PCR) 06/08/20 06/08/20 06/08/20 00:02 04:47 04:47 WBC 16.4 H RBC 3.07 L Hgb 8.6 L Hct 26.5 L RDW 16.3 H Lymph % (Auto) [place] % (Auto) Lymph # [place] # Seg Neutrophils % Seg Neuts % (Manual) 90.0 H Lymphocytes % (Manual) 3.0 L Seg Neutrophils # Seg Neutrophils # Man 14.8 H Lymphocytes # (Manual) 0.5 L Monocytes # (Manual) 1.1 H D-Dimer Heparin Anti-Xa Level ABG pH ABG pO2 ABG HCO3 ABG O2 Saturation ABG Base Excess ABG Hemoglobin VBG pH Oxyhemoglobin Sodium 129 L Potassium Chloride 95.6 L Carbon Dioxide 17 L BUN 106 H Creatinine 2.5 H Glucose 213 H POC Glucose 242 H Lactic Acid Calcium 7.6 L AST Alkaline Phosphatase Lactate Dehydrogenase Total Creatine Kinase CK-MB (CK-2) C-Reactive Protein Total Protein 5.0 L Albumin 2.1 L Urine WBC (Auto) Urine Creatinine Urine Total Protein Coronavirus (PCR) 06/08/20 06/08/20 06/08/20 05:40 11:55 17:54 WBC RBC Hgb Hct RDW Lymph % (Auto) [place] % (Auto) Lymph # [place] # Seg Neutrophils % Seg Neuts % (Manual) Lymphocytes % (Manual) Seg Neutrophils # Seg Neutrophils # Man Lymphocytes # (Manual) Monocytes # (Manual) D-Dimer Heparin Anti-Xa Level ABG pH ABG pO2 ABG HCO3 ABG O2 Saturation ABG Base Excess ABG Hemoglobin VBG pH Oxyhemoglobin Sodium Potassium Chloride Carbon Dioxide BUN Creatinine Glucose POC Glucose 221 H 218 H 163 H Lactic Acid Calcium AST Alkaline Phosphatase Lactate Dehydrogenase Total Creatine Kinase CK-MB (CK-2) C-Reactive Protein Total Protein Albumin Urine WBC (Auto) Urine Creatinine Urine Total Protein Coronavirus (PCR) 06/08/20 06/09/20 06/09/20 22:01 00:09 05:16 WBC 19.0 H RBC 3.35 L Hgb 9.2 L Hct 28.5 L RDW 16.3 H Lymph % (Auto) [place] % (Auto) Lymph # [place] # Seg Neutrophils % Seg Neuts % (Manual) 85.0 H Lymphocytes % (Manual) 7.0 L Seg Neutrophils # Seg Neutrophils # Man 16.2 H Lymphocytes # (Manual) Monocytes # (Manual) 1.3 H D-Dimer Heparin Anti-Xa Level ABG pH ABG pO2 ABG HCO3 ABG O2 Saturation ABG Base Excess ABG Hemoglobin VBG pH Oxyhemoglobin Sodium Potassium Chloride Carbon Dioxide BUN Creatinine Glucose POC Glucose 182 H 150 H Lactic Acid Calcium AST Alkaline Phosphatase Lactate Dehydrogenase Total Creatine Kinase CK-MB (CK-2) C-Reactive Protein Total Protein Albumin Urine WBC (Auto) Urine Creatinine Urine Total Protein Coronavirus (PCR) 06/09/20 06/09/20 06/09/20 05:16 05:24 11:29 WBC RBC Hgb Hct RDW Lymph % (Auto) [place] % (Auto) Lymph # [place] # Seg Neutrophils % Seg Neuts % (Manual) Lymphocytes % (Manual) Seg Neutrophils # Seg Neutrophils # Man Lymphocytes # (Manual) Monocytes # (Manual) D-Dimer Heparin Anti-Xa Level ABG pH ABG pO2 ABG HCO3 ABG O2 Saturation ABG Base Excess ABG Hemoglobin VBG pH Oxyhemoglobin Sodium 133 L Potassium Chloride Carbon Dioxide 19 L BUN 109 H Creatinine 2.1 H Glucose 133 H POC Glucose 128 H 119 H Lactic Acid Calcium 7.7 L AST Alkaline Phosphatase < 5 L Lactate Dehydrogenase Total Creatine Kinase CK-MB (CK-2) C-Reactive Protein Total Protein 4.6 L Albumin < 0.2 L Urine WBC (Auto) Urine Creatinine Urine Total Protein Coronavirus (PCR) 06/09/20 06/10/20 06/10/20 17:32 00:00 05:49 WBC RBC Hgb Hct RDW Lymph % (Auto) [place] % (Auto) Lymph # [place] # Seg Neutrophils % Seg Neuts % (Manual) Lymphocytes % (Manual) Seg Neutrophils # Seg Neutrophils # Man Lymphocytes # (Manual) Monocytes # (Manual) D-Dimer Heparin Anti-Xa Level 0.19 L ABG pH ABG pO2 ABG HCO3 ABG O2 Saturation ABG Base Excess ABG Hemoglobin VBG pH Oxyhemoglobin Sodium Potassium Chloride Carbon Dioxide BUN Creatinine Glucose POC Glucose 106 H 117 H Lactic Acid Calcium AST Alkaline Phosphatase Lactate Dehydrogenase Total Creatine Kinase CK-MB (CK-2) C-Reactive Protein Total Protein Albumin Urine WBC (Auto) Urine Creatinine Urine Total Protein Coronavirus (PCR) 06/10/20 06/10/20 06/10/20 05:54 07:40 11:40 WBC RBC Hgb Hct RDW Lymph % (Auto) [place] % (Auto) Lymph # [place] # Seg Neutrophils % Seg Neuts % (Manual) Lymphocytes % (Manual) Seg Neutrophils # Seg Neutrophils # Man Lymphocytes # (Manual) Monocytes # (Manual) D-Dimer Heparin Anti-Xa Level ABG pH ABG pO2 ABG HCO3 ABG O2 Saturation ABG Base Excess ABG Hemoglobin VBG pH Oxyhemoglobin Sodium 146 H D Potassium Chloride Carbon Dioxide 20 L BUN 99 H Creatinine 1.9 H Glucose 121 H POC Glucose 127 H 138 H Lactic Acid Calcium 8.2 L AST Alkaline Phosphatase Lactate Dehydrogenase Total Creatine Kinase CK-MB (CK-2) C-Reactive Protein Total Protein Albumin Urine WBC (Auto) Urine Creatinine Urine Total Protein Coronavirus (PCR) Allied health notes reviewed: nursing
--- NOTE | 2020-06-10 15:44 | Progress Note ---
Assessment and Plan Cultures: Coronavirus PCR: Positive 05/28/2020 blood culture: no growth 05/28/2020 tracheal aspirate: Usual respiratory bobo 05/28/2020 urine culture: No growth 06/03/2020 urine culture: No growth A/P: 64-year-old female with hypertension, diastolic CHF, pulmonary hypertension, diabetes, obesity hypoventilation syndrome was admitted to the emergency room after she called EMS due to difficulty breathing. On the way to the hospital, patient developed cardiac arrest and was treated as per ACLS protocol: #Bilateral pneumonia: Secondary to COVID-19. Completed 5 days of IV Remdesivir 06/02/2020. #Acute hypoxic respiratory failure: On mechanical ventilation. Minimal vent settings. #New pneumonia: Gram-negative rods on sputum culture. Continue cefepime for now, follow-up culture results. Given that she has been in the ICU, may need broadening of antibiotics to meropenem. #Status post PEA arrest, encephalopathy #HF: EF 45-50% #Mild LFT elevation: likely from COVID-19. #Mild AVANI not better Recs: Continue to monitor. Continue empiric vanc and cefepime. Follow-up cultures Keisha Chaudhari MD [facility] ([facility] M: [phone] O: [phone] F: [phone] Subjective Date of service: 06/10/20 Principal diagnosis: Ac hypoxemic resp failure; COVID-19; pneumonia; CHF; Pulm HTN; OHS; DM II Interval history: Febrile overnight to 100.4 white count elevated at 19. sputum culture with gram- negative rods Objective - Exam Narrative Exam: Physical exam deferred due to PPE conservation strategy. Please refer to primary team's note. - Constitutional Vitals: Vital Signs Temp Pulse Resp BP Pulse Ox 99.4 F 81 13 152/53 99 06/10/20 11:48 06/10/20 14:00 06/10/20 14:00 06/10/20 14:00 06/10/20 14:00 Temperature -Last 24 Hours Temperature 99.4 F Temperature 98.9 F Temperature 100.2 F Temperature 100.1 F Temperature 100.4 F Temperature 100.9 F - Labs CBC & Chem 7: 06/09/20 05:16 06/10/20 07:40 Labs: Abnormal lab results 06/09/20 06/10/20 06/10/20 Range/Units 17:32 00:00 05:49 Heparin Anti-Xa Level 0.19 L (0.3-0.7) U.I./ml Sodium (137-145) mmol/L Carbon Dioxide (22-30) mmol/L BUN (7-17) mg/dL Creatinine (0.6-1.2) mg/dL Glucose (65-100) mg/dL POC Glucose 106 H 117 H (70-105) Calcium (8.4-10.2) mg/dL 06/10/20 06/10/20 06/10/20 Range/Units 05:54 07:40 11:40 Heparin Anti-Xa Level (0.3-0.7) U.I./ml Sodium 146 H D (137-145) mmol/L Carbon Dioxide 20 L (22-30) mmol/L BUN 99 H (7-17) mg/dL Creatinine 1.9 H (0.6-1.2) mg/dL Glucose 121 H (65-100) mg/dL POC Glucose 127 H 138 H (70-105) Calcium 8.2 L (8.4-10.2) mg/dL
--- NOTE | 2020-06-10 18:08 | Progress Note ---
Assessment and Plan -- Acute hypoxemic respiratory failure From COVID-19 viral infection Patient intubated, sedated and on ventilatory support. Critical care team on board On SBT as per critical care team The high probability of a clinically significant, sudden or life threatening deterioration of the [pulmonary, renal, cardiac, neuro] system(s) required my full and direct attention, intervention and personal management. The aggregate critical care time was [90] minutes. This time is in addition to time spent performing reported procedures but includes the following: [x] Data Review and interpretation [x] Patient assessment and monitoring of vital signs [x] Documentation [x] Medication orders and management -- Cardiac arrest Cardiology team on board Conservative management as per cardiology -- Acute renal failure likely ATN Cr stable. BUN is climbing - now >100. ?may need HD soon - defer to nephrology Avoid ACEI and other nephrotoxic medications Nephrology following -- Coronavirus infection Completed remdesivir on 06/02 Continue dexamethasone - Last dose 06/07 ID recs appreciated. Maintained on ventilator --CHF (congestive heart failure) Cardiology following. -- Coffee ground emesis -Stress ulcers Possible stress ulcers On PPI H/H remains stable GI evaluation if Hb drops again -- Hypertension Continue amlodipine, coreg, clonidine and hydralazine Monitor BP -- DVT prophylaxis SCD to bilateral lower extremities while in bed Heparin -- Advance care planning Patient is full code. poor prognosis Brief History; 64 YO Female with a medical history of HTN, Diastolic CHF, Pulmonary HTN, DM, Obesity Hypoventilation Syndrome presents to ED for evaluation of shortness of breath. Patients history taken from EMS staff, ED staff. As per staff, the EMS was notified for difficulty breathing. Upon arrival to the patient's home the patient was found to be in distress and was subsequently transported to [facility] for further evaluation and care. In route to [facility] the patient developed cardiac arrest and was treated in accordance with ACLS protocol with return of ROSC Patient was seen and evaluated in the emergency department and was found to have acute hypoxemic respiratory failure status post cardiac arrest. Patient was intubated and placed on ventilatory support. Patient admitted to ICU due to increased risk of decompensation. Critical care team consulted in ED. She was found to have COVID-19 iinfection and was started on steroids and remdesivir. ID was consulted. Cardiology was consulted for her systolic heart failure and cardiac arrest. 06/01. Patient remains intubated and on ventilatory support today. Patient has multiple organ system failure and has poor prognosis. Patient did not experience significant medical decompensation overnight but no improvement with current therapy. 06/02. Remains intubated. her BP is elevated. Started on nicardipine drip. Cardiology following. 06/03-06/04. BP is better. Hb stable. Completed remdesivir. ID , Cardiology and Critical care team on board 06/05. Bump in creatinine. I/O reviewed. Nephrology consulted. 06/06. Has slight improvement in renal function. Nephrology on board. On SBT today. Vitals stable. 06/07. Stable renal function. No need for HD as per nephrology. She is making urine. Plan for SBT. 06/08. Off sedation and very lethargic. Her BUN is going up - effect of steroids vs GI bleed. Her hemoglobin remains stable. Will check stool guaiac. Nephrology is following. WBC bumped to 16 today. 06/09: remains intubated, wbc trended up, Cr slightly trending down. cont TF, wean off vent as tolerated. 06/10: Cr trending down, cont to wean off vent as tolerated. Subjective Date of service: 06/10/20 Principal diagnosis: Ac hypoxemic resp failure; COVID-19; pneumonia; CHF; Pulm HTN; OHS; DM II Interval history: Patient seen and examined Vitals reviewed Patient remains intubated and sedated Tolerating tube feeding Discussed with RN at the bedside Objective - Exam Narrative Exam: General appearance: Present: obese, other (intubated on the vent) - EENT Eyes: Present: PERRL - Neck Neck: Present: supple - Cardiovascular Rhythm: regular Heart Sounds: Present: S1 & S2 - Extremities Extremities: No edema - Abdominal General gastrointestinal: soft, non-tender, non-distended - Neurologic Neurologic: other (Intubated) Skin: No rash warm and dry Musculoskeletal: No joint effusion or erythema Psychiatric: Unable to assess - Constitutional Vitals: Vital Signs - 12hr 06/10/20 06/10/20 06/10/20 06:30 07:01 07:09 Temperature Pulse Rate 72 81 80 Pulse Rate [ From Monitor] Respiratory 15 11 L Rate Blood Pressure 125/48 167/60 167/60 O2 Sat by Pulse 98 99 Oximetry 06/10/20 06/10/20 06/10/20 07:30 08:00 08:01 Temperature 98.9 F Pulse Rate 89 80 81 Pulse Rate [ 80 From Monitor] Respiratory 13 14 19 Rate Blood Pressure 172/63 146/61 O2 Sat by Pulse 100 99 99 Oximetry 06/10/20 06/10/20 06/10/20 08:30 09:01 09:30 Temperature Pulse Rate 82 74 76 Pulse Rate [ From Monitor] Respiratory 19 13 14 Rate Blood Pressure 163/56 138/51 131/50 O2 Sat by Pulse 98 97 98 Oximetry 06/10/20 06/10/20 06/10/20 10:00 10:21 10:31 Temperature Pulse Rate 72 79 77 Pulse Rate [ From Monitor] Respiratory 15 14 Rate Blood Pressure 131/49 138/57 138/57 O2 Sat by Pulse 98 99 99 Oximetry 06/10/20 06/10/20 06/10/20 10:38 10:39 11:00 Temperature Pulse Rate 79 80 87 Pulse Rate [ From Monitor] Respiratory 11 L Rate Blood Pressure 138/57 138/57 144/66 O2 Sat by Pulse 96 100 Oximetry 06/10/20 06/10/20 06/10/20 11:30 11:48 12:00 Temperature 99.4 F Pulse Rate 80 87 Pulse Rate [ 85 From Monitor] Respiratory 12 12 Rate Blood Pressure 154/53 135/47 O2 Sat by Pulse 98 98 Oximetry 06/10/20 06/10/20 06/10/20 12:30 12:34 13:01 Temperature Pulse Rate 79 83 86 Pulse Rate [ From Monitor] Respiratory 11 L 9 L Rate Blood Pressure 135/57 135/57 170/62 O2 Sat by Pulse 100 99 100 Oximetry 06/10/20 06/10/20 06/10/20 13:28 13:29 13:31 Temperature Pulse Rate 84 84 85 Pulse Rate [ From Monitor] Respiratory 11 L Rate Blood Pressure 170/62 170/62 163/61 O2 Sat by Pulse 99 Oximetry 06/10/20 06/10/20 06/10/20 14:00 14:31 15:00 Temperature Pulse Rate 81 94 H 88 Pulse Rate [ From Monitor] Respiratory 13 13 12 Rate Blood Pressure 152/53 152/53 166/65 O2 Sat by Pulse 99 99 99 Oximetry 06/10/20 06/10/20 06/10/20 15:30 16:01 16:31 Temperature Pulse Rate 80 87 93 H Pulse Rate [ From Monitor] Respiratory 11 L 13 12 Rate Blood Pressure 155/55 142/64 144/63 O2 Sat by Pulse 99 100 99 Oximetry 06/10/20 06/10/20 06/10/20 17:00 17:20 17:30 Temperature Pulse Rate 85 95 H 90 Pulse Rate [ From Monitor] Respiratory 13 12 Rate Blood Pressure 163/61 163/61 152/56 O2 Sat by Pulse 98 97 99 Oximetry - Labs CBC & Chem 7: 06/12/20 02:46 06/12/20 02:46 Labs: Abnormal lab results 06/09/20 06/10/20 06/10/20 Range/Units 17:32 00:00 05:49 Heparin Anti-Xa Level 0.19 L (0.3-0.7) U.I./ml Sodium (137-145) mmol/L Carbon Dioxide (22-30) mmol/L BUN (7-17) mg/dL Creatinine (0.6-1.2) mg/dL Glucose (65-100) mg/dL POC Glucose 106 H 117 H (70-105) Calcium (8.4-10.2) mg/dL 06/10/20 06/10/20 06/10/20 Range/Units 05:54 07:40 11:40 Heparin Anti-Xa Level (0.3-0.7) U.I./ml Sodium 146 H D (137-145) mmol/L Carbon Dioxide 20 L (22-30) mmol/L BUN 99 H (7-17) mg/dL Creatinine 1.9 H (0.6-1.2) mg/dL Glucose 121 H (65-100) mg/dL POC Glucose 127 H 138 H (70-105) Calcium 8.2 L (8.4-10.2) mg/dL 06/10/20 06/10/20 Range/Units 14:44 17:31 Heparin Anti-Xa Level 0.17 L (0.3-0.7) U.I./ml Sodium (137-145) mmol/L Carbon Dioxide (22-30) mmol/L BUN (7-17) mg/dL Creatinine (0.6-1.2) mg/dL Glucose (65-100) mg/dL POC Glucose 128 H (70-105) Calcium (8.4-10.2) mg/dL
[2020-06-10] MEDS: VANCOMYCIN 2,000 MG in SODIUM CHLORIDE 0.9% 500 ML 500 ML IV SCH (18:15)
[2020-06-10] MEDS: QUEtiapine 200 MG TAB PO SCH (22:18)
[2020-06-11] MEDS: INSULIN LISPRO 100 UNIT/ML VIAL 3 mL SUB-Q SCH ×4 (00:46→18:36)
[2020-06-11] MEDS: METOCLOPRAMIDE 10 MG/2 ML INJ IV SCH ×4 (01:50→20:11)
[2020-06-11] MEDS: HEPARIN/ 0.45% NACL DRIP 25,000 UNIT/500 ML BAG IV SCH ×2 (03:15→17:34)
[2020-06-11 04:29] LABS: Basophils % (Auto) 0.2 % (0.0-1.8); Eosinophils # (Auto) 0.3 K/mm3 (0.0-0.4); Eosinophils % (Auto) 1.8 % (0.0-4.3); Hematocrit 24.3 % (30.3-42.9); Hemoglobin 7.9 gm/dl (10.1-14.3); Lymphocytes % (Auto) 6.6 % (13.4-35.0); Mean Corpuscular HGB Conc 33 % (30-34); Mean Corpuscular Volume 88 fl (79-97); Monocytes # (Auto) 1.2 K/mm3 (0.0-0.8); Monocytes % (Auto) 8.5 % (0.0-7.3); Platelet Count 199 K/mm3 (140-440); Red Blood Count 2.77 M/mm3 (3.65-5.03); Red Cell Distribution Width 16.8 % (13.2-15.2)
[2020-06-11 04:42] LABS: Calcium 8.2 mg/dL (8.4-10.2)
[2020-06-11] MEDS: FUROSEMIDE 40 MG/4 ML INJ IV SCH ×2 (05:50→17:26)
[2020-06-11] MEDS: cloNIDine 0.1 MG TAB PO SCH ×3 (05:52→22:15)
[2020-06-11] MEDS: cloNIDine 0.2 MG TAB PO SCH ×3 (05:52→22:15)
[2020-06-11] MEDS: hydrALAZINE 25 MG TAB PO SCH ×3 (06:00→22:14)
--- NOTE | 2020-06-11 08:18 | Progress Note ---
Assessment and Plan - Patient Problems (1) Acute kidney injury (AVANI) with acute tubular necrosis (ATN) Current Visit: Yes Status: Acute Plan to address problem: renal function remained stable with continued improvement in renal parameters. This still remains no acute indication for renal replacement therapy. Will monitor closely. Will continue with Lasix 60 mg IV twice a day. We will monitor urine output with aforementioned diuretic regimen. (2) Acute hypoxemic respiratory failure Current Visit: Yes Status: Acute Plan to address problem: management per pulmonary team. Remains intubated at this time. Possible extubation today per nursing staff. (3) Volume overload Current Visit: Yes Status: Acute Plan to address problem: Responding well to lasix 60 mg IV BID, will plan to continue with current regimen. (4) Pneumonia due to COVID-19 virus Current Visit: Yes Status: Acute Plan to address problem: management per ID recommendations. (5) Hyperkalemia Current Visit: Yes Status: Acute Plan to address problem: in the setting of acute kidney injury. Current labs show stable potassium levels. We will be monitoring very closely. Subjective Date of service: 06/11/20 Principal diagnosis: Ac hypoxemic resp failure; COVID-19; pneumonia; CHF; Pulm HTN; OHS; DM II Interval history: No acute issues this am, continues on vent. Adequate urine output. Objective - Exam Narrative Exam: patient was not directly examined secondary to preservation of PPE - Vital Signs Vital signs: Vital Signs - 12hr 06/10/20 06/10/20 06/10/20 20:30 21:00 21:01 Temperature Pulse Rate 85 82 83 Pulse Rate [ From Monitor] Respiratory 12 10 L 11 L Rate Blood Pressure 146/56 139/52 139/52 O2 Sat by Pulse 98 97 97 Oximetry 06/10/20 06/10/20 06/10/20 21:20 21:31 22:00 Temperature Pulse Rate 81 81 79 Pulse Rate [ From Monitor] Respiratory 15 Rate Blood Pressure 139/52 123/50 132/46 O2 Sat by Pulse 97 97 Oximetry 06/10/20 06/10/20 06/10/20 22:01 22:18 22:23 Temperature Pulse Rate 79 76 76 Pulse Rate [ From Monitor] Respiratory 14 Rate Blood Pressure 132/46 132/46 132/46 O2 Sat by Pulse 96 Oximetry 09/02/20 09/02/20 09/02/20 22:30 23:00 23:30 Temperature Pulse Rate 82 77 78 Pulse Rate [ From Monitor] Respiratory 13 14 14 Rate Blood Pressure 140/54 126/47 137/49 O2 Sat by Pulse 97 96 96 Oximetry 06/11/20 06/11/20 06/11/20 00:00 00:30 00:37 Temperature 99.5 F Pulse Rate 77 85 88 Pulse Rate [ 77 From Monitor] Respiratory 14 13 Rate Blood Pressure 139/46 138/51 138/51 O2 Sat by Pulse 97 98 98 Oximetry 06/11/20 06/11/20 06/11/20 01:00 01:30 02:00 Temperature Pulse Rate 81 78 79 Pulse Rate [ From Monitor] Respiratory 14 13 13 Rate Blood Pressure 132/46 124/44 128/44 O2 Sat by Pulse 96 94 96 Oximetry 06/11/20 06/11/20 06/11/20 02:30 03:00 03:30 Temperature Pulse Rate 77 76 83 Pulse Rate [ From Monitor] Respiratory 14 13 14 Rate Blood Pressure 130/44 129/44 135/45 O2 Sat by Pulse 96 97 98 Oximetry 06/11/20 06/11/20 06/11/20 04:00 04:08 04:30 Temperature 98.9 F Pulse Rate 79 77 80 Pulse Rate [ 79 From Monitor] Respiratory 14 13 Rate Blood Pressure 116/40 116/40 108/48 O2 Sat by Pulse 99 99 98 Oximetry 06/11/20 06/11/20 06/11/20 05:00 05:30 05:52 Temperature Pulse Rate 74 73 77 Pulse Rate [ From Monitor] Respiratory 13 14 Rate Blood Pressure 116/42 118/43 118/43 O2 Sat by Pulse 99 99 Oximetry 06/11/20 06/11/20 06:00 06:30 Temperature Pulse Rate 87 77 Pulse Rate [ From Monitor] Respiratory 15 16 Rate Blood Pressure 103/52 113/47 O2 Sat by Pulse 97 99 Oximetry - Lab 06/11/20 03:45 06/11/20 03:45 Most recent lab results ABG pH 7.317 pH Units (7.350-7.450) L 06/07/20 04:54 ABG pCO2 41.9 mm Hg 06/07/20 04:54 ABG pO2 71.4 mm Hg (80.0-90.0) L 06/07/20 04:54 ABG HCO3 20.9 mmol/L (20.0-26.0) 06/07/20 04:54 ABG O2 Saturation 94.3 % (95.0-99.0) L 06/07/20 04:54 Calcium 8.2 mg/dL (8.4-10.2) L 06/11/20 03:45 Urine Creatinine 82.2 mg/dL (0.1-20.0) H 06/06/20 04:00 Urine Sodium 20 mmol/L 06/06/20 04:00 Urine Total Protein 196 mg/dL (5-11.8) H 06/06/20 04:00 Medications & Allergies - Medications Allergies/Adverse Reactions: Allergies No Known Allergies Allergy (Verified 01/21/20 12:28) Home Medications: Home Medications Medication Instructions Recorded Confirmed Last Taken Type AtorvaSTATin [Lipitor] 20 mg PO QHS 05/12/20 05/29/20 Unknown History lisinopriL [Zestril TAB] 40 mg PO QDAY 05/12/20 05/29/20 Unknown History metFORMIN [Glucophage] 850 mg PO BID 05/12/20 05/29/20 Unknown History Acetaminophen [Acetaminophen TAB] 650 mg PO Q4H PRN tablet 05/13/20 05/29/20 Unknown Rx Dicyclomine [Bentyl] 20 mg PO BID #20 tablet 05/13/20 05/29/20 Unknown Rx Famotidine [Pepcid] 20 mg PO BID #30 tablet 05/13/20 05/29/20 Unknown Rx carvediloL [Coreg] 6.25 mg PO BID #60 05/13/20 05/29/20 Unknown Rx Active Medications: Generic Name Dose Route Start Last Admin Trade Name Freq PRN Reason Stop Dose Admin Acetaminophen 650 mg 06/09/20 10:57 06/09/20 20:28 Tylenol FEEDTUBE 650 mg Q6H PRN Administration Fever >101 Amlodipine Besylate 10 mg 06/02/20 11:00 06/10/20 10:38 Amlodipine PO 10 mg DAILY NELSON Administration Lipase/Protease/Amylase 1 each 05/29/20 13:39 Pancreaze 10,500 Unit FEEDTUBE PRN PRN For Clogged Feeding Tube Carvedilol 12.5 mg 06/03/20 10:00 06/10/20 22:23 Coreg PO 12.5 mg BID NELSON Administration Clonidine HCl 0.1 mg 06/04/20 06:00 06/11/20 05:52 Catapres PO Not Given Q8HR [facility] Clonidine HCl 0.2 mg 06/04/20 06:00 06/11/20 05:52 Catapres PO Not Given Q8HR [facility] Fentanyl 50 mcg 05/29/20 14:21 06/09/20 20:27 Sublimaze IV 50 mcg Q10MIN PRN Administration ANALGESIA Furosemide 60 mg 06/09/20 10:00 06/11/20 05:50 Lasix IV 60 mg 0600,1800 [facility] Administration Glycopyrrolate 2 mg 06/09/20 14:00 06/10/20 20:33 Glycopyrrolate PO 2 mg TID [facility] Administration Hydralazine HCl 50 mg 06/03/20 09:00 06/11/20 06:00 Apresoline PO Not Given Q8HR [facility] Hydrophilic Ointment 1 applic 05/28/20 13:49 Vaseline Lip Therapy TP Q2HR PRN Dry Lips Heparin Sodium/Sodium Chloride 25,000 unit in 500 mls @ 30 mls/hr 05/29/20 15:00 06/11/20 03:15 Heparin/ 0.45% Nacl-25,000 Unit/500 Ml IV 1,750 units/hr TITR NELSON 35 mls/hr Administration Protocol 1,500 UNITS/HR Fentanyl Citrate 2,000 mcg in 100 mls @ 6.095 mls/hr 05/29/20 15:00 06/07/20 08:30 Fentanyl Drip Premix IV 0 mcg/kg/hr TITR NELSON 0 mls/hr Titration Protocol 1 MCG/KG/HR Nicardipine HCl 50 mg/ Sodium 250 mls @ 25 mls/hr 06/02/20 09:00 06/02/20 11:23 Chloride IV 0 mg/hr TITR NELSON 0 mls/hr Titration Protocol 5 MG/HR Vancomycin HCl 2,000 mg/ 540 mls @ 250 mls/hr 06/09/20 19:00 06/10/20 18:15 Sodium Chloride IV 250 mls/hr Q24H NELSON Administration Cefepime HCl 2 gm in 100 mls @ 200 mls/hr 06/11/20 10:00 Cefepime/Ns 2 Gm/100 Ml IV Q12HR [facility] Protocol Insulin Glargine 10 units 06/08/20 22:00 06/10/20 22:18 Lantus SUB-Q Not Given QHS [facility] Insulin Human Lispro 0 unit 05/29/20 18:00 06/11/20 05:51 Humalog SUB-Q Not Given Q6H [facility] Protocol Labetalol HCl 20 mg 06/03/20 09:00 06/08/20 23:51 Labetalol IV 20 mg Q4H PRN Administration HYPERTENSION Lansoprazole 30 mg 06/05/20 22:00 06/10/20 22:18 Prevacid Solutab FEEDTUBE 30 mg BID NELSON Administration Levetiracetam 500 mg 05/29/20 22:00 06/10/20 22:17 Keppra PO 500 mg BID NELSON Administration Metoclopramide HCl 10 mg 06/10/20 20:00 06/11/20 01:50 Reglan IV 10 mg Q6H NELSON Administration Multi-Ingred Cream/Lotion/Oil/Oint 1 applic 05/28/20 13:49 Artificial Tears Ophth Oint OU Q4HR PRN Dry Eye(s) Ondansetron HCl 4 mg 06/02/20 09:00 06/09/20 16:48 Zofran IV 4 mg Q8H PRN Administration Nausea And Vomiting Quetiapine Fumarate 200 mg 06/08/20 22:00 06/10/20 22:18 Seroquel PO 200 mg QHS NELSON Administration Scopolamine 1 each 06/05/20 14:00 06/08/20 09:02 Transderm-Scop TD 1 each Q3D NELSON Administration Senna 17.6 mg 06/03/20 10:00 06/10/20 22:17 Senokot FEEDTUBE 17.6 mg BID NELSON Administration Simple Syrup 15 ml 05/29/20 13:39 Simple Syrup FEEDTUBE PRN PRN Hypoglycemia Simple Syrup 30 ml 05/29/20 13:39 Simple Syrup FEEDTUBE PRN PRN Hypoglycemia Sodium Bicarbonate 325 mg 05/29/20 13:39 Sodium Bicarbonate FEEDTUBE PRN PRN For Clogged Feeding Tube Sodium Bicarbonate 650 mg 06/06/20 10:00 06/10/20 22:17 Sodium Bicarbonate PO 650 mg BID NELSON Administration Sodium Chloride 10 ml 05/28/20 22:00 06/10/20 22:18 Sodium Chloride Flush Syringe 10 Ml IV 10 ml BID NELSON Administration Sodium Chloride 10 ml 05/28/20 19:08 Sodium Chloride Flush Syringe 10 Ml IV PRN PRN LINE FLUSH
[2020-06-11] MEDS: amLODIPine 10 MG TAB PO SCH (09:36)
[2020-06-11] MEDS: LANSOPRAZOLE 30 MG SOLUTAB FEEDTUBE SCH ×2 (09:37→22:14)
[2020-06-11] MEDS: levETIRAcetam 500 MG TAB PO SCH ×2 (09:38→22:14)
[2020-06-11] MEDS: GLYCOPYRROLATE 2 MG TAB PO SCH ×3 (09:38→20:10)
[2020-06-11] MEDS: SCOPOLAMINE TRANSDERMAL PATCH 72 HR TD SCH (09:38)
[2020-06-11] MEDS: SODIUM BICARBONATE 650 MG TAB PO SCH ×2 (09:38→22:13)
[2020-06-11] MEDS: CEFEPIME/NS 2 GM/100 ML 2 GM/100 ML BAG IV SCH ×2 (09:39→22:13)
[2020-06-11] MEDS: SENNOSIDES ORAL LIQD 8.8 MG/5 ML ORAL LIQD FEEDTUBE SCH ×2 (09:40→22:16)
--- NOTE | 2020-06-11 11:55 | Progress Note ---
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 Well-preserved left ventricular systolic function. Conservative cardiac management. Will follow intermittently. Subjective Date of service: 06/11/20 Principal diagnosis: Ac hypoxemic resp failure; COVID-19; pneumonia; CHF; Pulm HTN; OHS; DM II Interval history: No cardiac events reported. Sinus rhythm on court recording monitor. Objective Vital Signs Temp Pulse Pulse Resp BP Pulse Ox 06/11/20 11:30 86 14 141/50 06/11/20 11:05 90 11 L 139/51 99 06/11/20 11:00 86 11 L 135/49 99 06/11/20 10:30 85 10 L 135/49 99 06/11/20 10:01 88 13 147/48 100 06/11/20 09:36 78 129/45 06/11/20 09:30 76 12 129/45 98 06/11/20 09:00 78 11 L 131/46 98 06/11/20 08:31 83 14 142/47 98 06/11/20 08:20 79 12 126/47 99 06/11/20 08:16 79 126/47 99 06/11/20 08:00 76 14 126/47 98 06/11/20 07:31 87 14 112/52 98 06/11/20 07:00 74 14 123/45 99 06/11/20 06:30 77 16 113/47 99 06/11/20 06:00 87 15 103/52 97 06/11/20 05:52 77 118/43 06/11/20 05:30 73 14 118/43 99 06/11/20 05:00 74 13 116/42 99 06/11/20 04:30 80 13 108/48 98 06/11/20 04:08 77 116/40 99 06/11/20 04:00 98.9 F 79 79 14 116/40 99 06/11/20 03:30 83 14 135/45 98 06/11/20 03:00 76 13 129/44 97 06/11/20 02:30 77 14 130/44 96 06/11/20 02:00 79 13 128/44 96 06/11/20 01:30 78 13 124/44 94 06/11/20 01:00 81 14 132/46 96 06/11/20 00:37 88 138/51 98 06/11/20 00:30 85 13 138/51 98 06/11/20 00:00 99.5 F 77 77 14 139/46 97 06/10/20 23:30 78 14 137/49 96 06/10/20 23:00 77 14 126/47 96 06/10/20 22:30 82 13 140/54 97 06/10/20 22:23 76 132/46 06/10/20 22:18 76 132/46 06/10/20 22:01 79 14 132/46 96 06/10/20 22:00 79 132/46 06/10/20 21:31 81 15 123/50 97 06/10/20 21:20 81 139/52 97 06/10/20 21:01 83 11 L 139/52 97 06/10/20 21:00 82 10 L 139/52 97 06/10/20 20:30 85 12 146/56 98 06/10/20 20:00 99.9 F H 82 81 13 118/43 97 06/10/20 19:30 74 13 118/43 98 06/10/20 19:00 78 13 130/47 98 06/10/20 18:30 82 10 L 129/52 99 06/10/20 18:00 83 13 129/45 97 06/10/20 17:30 90 12 152/56 99 06/10/20 17:20 95 H 163/61 97 06/10/20 17:00 85 13 163/61 98 06/10/20 16:31 93 H 12 144/63 99 06/10/20 16:01 87 13 142/64 100 06/10/20 16:00 99.1 F 82 87 14 99 06/10/20 15:30 80 11 L 155/55 99 06/10/20 15:00 88 12 166/65 99 06/10/20 14:31 94 H 13 152/53 99 06/10/20 14:00 81 13 152/53 99 06/10/20 13:31 85 11 L 163/61 99 06/10/20 13:29 84 170/62 06/10/20 13:28 84 170/62 06/10/20 13:01 86 9 L 170/62 100 09/02/20 12:34 83 135/57 99 06/10/20 12:30 79 11 L 135/57 100 06/10/20 12:00 87 85 12 135/47 98 - Physical Examination Narrative exam: Deferred due to coronavirus isolation protocol. General: Other (intubated ) Cardiac: Positive: Reg Rate and Rhythm - Labs and Meds CBC 06/11/20 Range/Units 03:45 WBC 14.6 H (4.5-11.0) K/mm3 RBC 2.77 L (3.65-5.03) M/mm3 Hgb 7.9 L (10.1-14.3) gm/dl Hct 24.3 L (30.3-42.9) % Plt Count 199 (140-440) K/mm3 Lymph # 1.0 L (1.2-5.4) K/mm3 [place] # 1.2 H (0.0-0.8) K/mm3 Eos # 0.3 (0.0-0.4) K/mm3 Baso # 0.0 (0.0-0.1) K/mm3 Comprehensive Metabolic Panel 06/11/20 Range/Units 03:45 Sodium 139 (137-145) mmol/L Potassium 3.7 (3.6-5.0) mmol/L Chloride 100.4 (98-107) mmol/L Carbon Dioxide 20 L (22-30) mmol/L BUN 88 H (7-17) mg/dL Creatinine 1.5 H (0.6-1.2) mg/dL Glucose 111 H (65-100) mg/dL Calcium 8.2 L (8.4-10.2) mg/dL - Allied health notes Allied health notes reviewed: nursing
[2020-06-11] MEDS: carvediloL 12.5 MG TAB PO SCH ×2 (12:00→22:14)
--- NOTE | 2020-06-11 13:58 | Progress Note ---
Assessment and Plan Acute hypoxemic respiratory failure orally intubated on MVS Severe COVID infection Multifocal pneumonia Morbid obesity Acute toxic metabolic encephalopathy AVANI secondary to COVID/vasomotor nephropathy Bilateral pulmonary edema. Bilateral pleural effusions. History of congestive heart failure. Morbid obesity. History of pulmonary hypertension. History of hypertension. Diabetes. Obesity hypoventilation syndrome. Elevated serum inflammatory markers to include D-dimers and LDH levels. AVANI Metabolic acidosis. Oropharyngeal dysphagia. -SAT and SBT today as tolerated -Continue to hold fentanyl infusion -Place back on full support, optimize today with goal to liberate from MVS tomorrow -CXR, ABG in am - VAP bundle addressed -Aspiration precautions, HOB >40 - continue lung protective strategies-ARDS. net -Permissive hypercapnic is acceptable - continue bronchodilators with pulmonary hygiene per RT - wean per pulmonary driven protocols otherwise - continue to avoid benzodiazepines, reduce the possibility of delirium - prn analgesia per CPOT score - sedation prn for target RASS 0 to -1 - Continue to wean supplemental oxygen for target O2 sats > 92% - conservative fluid management measures as tolerated by hemodynamics and renal function - Bronchodilators with pulmonary hygiene per RT -Monitor off antibiotics - Accuchecks with glycemic control per SSI (While critically ill target blood glucose of 140-180 mg/dL; avoid hypoglycemia) - Maintenance of sleep-wake cycle, avoid delirium - Avoid nephrotoxins, closely monitor renal function, dose all medications for renal function - Aspiration precautions, HOB >40 - Stress ulcer prophylaxis -Famotidine - VTE prophylaxis on adjust based on D-dimer levels - Mobility protocol, off loading and skin assessment for pressure ulcer prevention - Monitor hemodynamics closely - Supportive transfusions as indicated to keep HgB >7g/dL COVID SPECIFIC INTERVENTIONS -Airborne, contact isolation for COVID per facility protocols - s/p Remdesivir -IV steroids-Dexamethasone -Trend d-dimer,and other inflammatory markers per facility protocol -Convalescent plasma therapy per facility protocol -Continue all supportive care Discussed with the ICU team-RTRN, Life threatening condition- COVID 19 ARDS acute hypoxemic respiratory failure on MVS Mortality/Morbidity- High Complexity of medical decision making- High CONDITION: CRITICAL PROGNOSIS: GUARDED CODE STATUS: FULL CODE The high probability of a clinically significant, sudden or life-threatening deterioration of the [respiratory & neurology, renal ] system(s) required my full and direct attention, intervention and personal management. The aggregate critical care time was [32] minutes without overlap. Time includes spent on; [x] Data Review and interpretation [x] Patient assessment and monitoring of vital signs [x] Documentation [x] Medication orders and management Subjective Date of service: 06/11/20 Principal diagnosis: Ac hypoxemic resp failure; COVID-19; pneumonia; CHF; Pulm HTN; OHS; DM II Interval history: Patient is seen today for: Ac hypoxemic resp failure; Coronavirus-19 infection; pneumonia; Pulmonary edema; Bilateral pleural effusions; CHF; Morbid obesity; pulmonary hypertension; OHS; DM II Seen and examined at bedside; 24hour events reviewed; nursing and respiratory care staff consulted; no adverse overnight events reported to me; resting peacefully in bed; remains on MVS; no emesis or overt aspiration; no high grade fevers, tolerating tube feeds at goal Off Fentanyl for PSV trial Objective Vital Signs - 12hr 06/11/20 06/11/20 06/11/20 02:00 02:30 03:00 Temperature Pulse Rate 79 77 76 Pulse Rate [ From Monitor] Respiratory 13 14 13 Rate Blood Pressure 128/44 130/44 129/44 O2 Sat by Pulse 96 96 97 Oximetry 06/11/20 06/11/20 06/11/20 03:30 04:00 04:08 Temperature 98.9 F Pulse Rate 83 79 77 Pulse Rate [ 79 From Monitor] Respiratory 14 14 Rate Blood Pressure 135/45 116/40 116/40 O2 Sat by Pulse 98 99 99 Oximetry 06/11/20 06/11/20 06/11/20 04:30 05:00 05:30 Temperature Pulse Rate 80 74 73 Pulse Rate [ From Monitor] Respiratory 13 13 14 Rate Blood Pressure 108/48 116/42 118/43 O2 Sat by Pulse 98 99 99 Oximetry 06/11/20 06/11/20 06/11/20 05:52 06:00 06:30 Temperature Pulse Rate 77 87 77 Pulse Rate [ From Monitor] Respiratory 15 16 Rate Blood Pressure 118/43 103/52 113/47 O2 Sat by Pulse 97 99 Oximetry 06/11/20 06/11/20 06/11/20 07:00 07:31 08:00 Temperature 98.2 F Pulse Rate 74 87 76 Pulse Rate [ 81 From Monitor] Respiratory 14 14 15 Rate Blood Pressure 123/45 112/52 126/47 O2 Sat by Pulse 99 98 99 Oximetry 06/11/20 06/11/20 06/11/20 08:16 08:20 08:31 Temperature Pulse Rate 79 79 83 Pulse Rate [ From Monitor] Respiratory 12 14 Rate Blood Pressure 126/47 126/47 142/47 O2 Sat by Pulse 99 99 98 Oximetry 06/11/20 06/11/20 06/11/20 09:00 09:30 09:36 Temperature Pulse Rate 78 76 78 Pulse Rate [ From Monitor] Respiratory 11 L 12 Rate Blood Pressure 131/46 129/45 129/45 O2 Sat by Pulse 98 98 Oximetry 06/11/20 06/11/20 06/11/20 10:01 10:30 11:00 Temperature Pulse Rate 88 85 86 Pulse Rate [ From Monitor] Respiratory 13 10 L 11 L Rate Blood Pressure 147/48 135/49 135/49 O2 Sat by Pulse 100 99 99 Oximetry 06/11/20 06/11/20 06/11/20 11:05 11:30 12:00 Temperature 98.6 F Pulse Rate 90 86 81 Pulse Rate [ 84 From Monitor] Respiratory 11 L 14 13 Rate Blood Pressure 139/51 141/50 137/48 O2 Sat by Pulse 99 99 Oximetry 06/11/20 12:30 Temperature Pulse Rate 81 Pulse Rate [ From Monitor] Respiratory 13 Rate Blood Pressure 143/48 O2 Sat by Pulse 98 Oximetry Constitutional: no acute distress, other (elderly looking obese female on PSV ) Eyes: non-icteric ENT: oropharynx moist, other (ETT 23 cm AYAN) Neck: supple, no lymphadenopathy, no JVD, other (ETT 23 cm AYAN) Effort: mildly labored Ascultation: Bilateral: clear, diminished breath sounds, rhonchi Percussion: Bilateral: not dull Cardiovascular: regular rate and rhythm, other (S1,S2) Gastrointestinal: normoactive bowel sounds, soft, non-tender, non-distended Integumentary: normal Extremities: no cyanosis, no edema, pink and warm, pulses normal, no ischemia or petechiae Neurologic: non-focal exam (grossly), pupils equal and round, motor strength normal and Psychiatric: mood appropriate, affect normal CBC and BMP: 06/12/20 02:46 06/12/20 02:46 ABG, PT/INR, D-dimer: ABG ABG pH 7.402 (7.320-7.450) 06/11/20 11:11 POC ABG pCO2 37.4 mmHg (32.0-48.0) 06/11/20 11:11 ABG pCO2 41.9 mm Hg 06/07/20 04:54 POC ABG pO2 101.9 mmHg (83-108) 06/11/20 11:11 ABG pO2 71.4 mm Hg (80.0-90.0) L 06/07/20 04:54 ABG O2 Saturation 94.3 % (95.0-99.0) L 06/07/20 04:54 PT/INR, D-dimer PT 14.2 Sec. (12.2-14.9) 05/29/20 15:10 INR 1.08 (0.87-1.13) 05/29/20 15:10 D-Dimer 414.52 ng/mlDDU (0-234) H 06/04/20 04:19 Abnormal lab findings: Abnormal Labs 05/28/20 05/28/20 05/28/20 13:29 13:47 13:47 WBC RBC Hgb Hct RDW 15.3 H Lymph % (Auto) Walsh % (Auto) Lymph # Walsh # Seg Neutrophils % Seg Neuts % (Manual) Lymphocytes % (Manual) Seg Neutrophils # Seg Neutrophils # Man Lymphocytes # (Manual) Monocytes # (Manual) D-Dimer Heparin Anti-Xa Level ABG pH ABG pO2 ABG HCO3 ABG O2 Saturation ABG Base Excess ABG Hemoglobin VBG pH Oxyhemoglobin Sodium Potassium 6.6 H* Chloride 109.2 H Carbon Dioxide 17 L BUN 29 H Creatinine 1.3 H Glucose 265 H POC Glucose 248 H Lactic Acid Calcium 8.1 L AST 63 H Alkaline Phosphatase Lactate Dehydrogenase Total Creatine Kinase 301 H CK-MB (CK-2) 4.3 H C-Reactive Protein Total Protein 5.4 L Albumin 2.6 L Urine WBC (Auto) Urine Creatinine Urine Total Protein Coronavirus (PCR) 05/28/20 05/28/20 05/28/20 13:47 13:47 14:46 WBC RBC Hgb Hct RDW Lymph % (Auto) Walsh % (Auto) Lymph # Walsh # Seg Neutrophils % Seg Neuts % (Manual) Lymphocytes % (Manual) Seg Neutrophils # Seg Neutrophils # Man Lymphocytes # (Manual) Monocytes # (Manual) D-Dimer Heparin Anti-Xa Level ABG pH ABG pO2 ABG HCO3 ABG O2 Saturation ABG Base Excess ABG Hemoglobin VBG pH 7.152 L* Oxyhemoglobin Sodium Potassium 7.2 H* Chloride Carbon Dioxide BUN Creatinine Glucose POC Glucose Lactic Acid 3.40 H* Calcium AST Alkaline Phosphatase Lactate Dehydrogenase Total Creatine Kinase CK-MB (CK-2) C-Reactive Protein Total Protein Albumin Urine WBC (Auto) Urine Creatinine Urine Total Protein Coronavirus (PCR) 05/28/20 05/28/20 05/28/20 15:33 15:33 15:51 WBC RBC Hgb Hct RDW Lymph % (Auto) Walsh % (Auto) Lymph # Walsh # Seg Neutrophils % Seg Neuts % (Manual) Lymphocytes % (Manual) Seg Neutrophils # Seg Neutrophils # Man Lymphocytes # (Manual) Monocytes # (Manual) D-Dimer 8780.43 H Heparin Anti-Xa Level ABG pH 7.284 L ABG pO2 273.0 H ABG HCO3 ABG O2 Saturation 99.4 H ABG Base Excess -6.1 L ABG Hemoglobin 17.2 H VBG pH Oxyhemoglobin Sodium Potassium Chloride Carbon Dioxide BUN Creatinine Glucose 152 H POC Glucose Lactic Acid Calcium AST Alkaline Phosphatase Lactate Dehydrogenase 365 H Total Creatine Kinase CK-MB (CK-2) C-Reactive Protein Total Protein Albumin Urine WBC (Auto) Urine Creatinine Urine Total Protein Coronavirus (PCR) 05/28/20 05/28/20 05/28/20 16:30 20:41 23:20 WBC RBC Hgb Hct RDW Lymph % (Auto) Walsh % (Auto) Lymph # Walsh # Seg Neutrophils % Seg Neuts % (Manual) Lymphocytes % (Manual) Seg Neutrophils # Seg Neutrophils # Man Lymphocytes # (Manual) Monocytes # (Manual) D-Dimer Heparin Anti-Xa Level ABG pH ABG pO2 ABG HCO3 ABG O2 Saturation ABG Base Excess ABG Hemoglobin VBG pH Oxyhemoglobin Sodium Potassium Chloride Carbon Dioxide BUN Creatinine Glucose POC Glucose 225 H 224 H Lactic Acid Calcium AST Alkaline Phosphatase Lactate Dehydrogenase Total Creatine Kinase CK-MB (CK-2) C-Reactive Protein Total Protein Albumin Urine WBC (Auto) 17.0 H Urine Creatinine Urine Total Protein Coronavirus (PCR) 05/28/20 05/29/20 05/29/20 Unknown 04:35 04:43 WBC RBC 3.48 L Hgb 9.8 L Hct 29.4 L RDW 16.0 H Lymph % (Auto) 7.4 L Walsh % (Auto) Lymph # 0.7 L Walsh # Seg Neutrophils % 89.1 H Seg Neuts % (Manual) Lymphocytes % (Manual) Seg Neutrophils # 8.1 H Seg Neutrophils # Man Lymphocytes # (Manual) Monocytes # (Manual) D-Dimer Heparin Anti-Xa Level ABG pH ABG pO2 ABG HCO3 19.3 L ABG O2 Saturation ABG Base Excess -4.5 L ABG Hemoglobin 9.7 L VBG pH Oxyhemoglobin Sodium Potassium Chloride Carbon Dioxide BUN Creatinine Glucose POC Glucose Lactic Acid Calcium AST Alkaline Phosphatase Lactate Dehydrogenase Total Creatine Kinase CK-MB (CK-2) C-Reactive Protein Total Protein Albumin Urine WBC (Auto) Urine Creatinine Urine Total Protein Coronavirus (PCR) Positive A 05/29/20 05/29/20 05/29/20 04:43 15:10 17:17 WBC RBC Hgb 9.3 L Hct 28.7 L RDW Lymph % (Auto) Walsh % (Auto) Lymph # Walsh # Seg Neutrophils % Seg Neuts % (Manual) Lymphocytes % (Manual) Seg Neutrophils # Seg Neutrophils # Man Lymphocytes # (Manual) Monocytes # (Manual) D-Dimer Heparin Anti-Xa Level ABG pH ABG pO2 ABG HCO3 ABG O2 Saturation ABG Base Excess ABG Hemoglobin VBG pH Oxyhemoglobin Sodium Potassium Chloride 110.2 H Carbon Dioxide 18 L BUN 32 H Creatinine 1.4 H Glucose 180 H POC Glucose 147 H Lactic Acid Calcium AST Alkaline Phosphatase Lactate Dehydrogenase Total Creatine Kinase CK-MB (CK-2) C-Reactive Protein Total Protein Albumin Urine WBC (Auto) Urine Creatinine Urine Total Protein Coronavirus (PCR) 05/30/20 05/30/20 05/30/20 00:08 00:12 04:15 WBC RBC Hgb Hct RDW Lymph % (Auto) Walsh % (Auto) Lymph # Walsh # Seg Neutrophils % Seg Neuts % (Manual) Lymphocytes % (Manual) Seg Neutrophils # Seg Neutrophils # Man Lymphocytes # (Manual) Monocytes # (Manual) D-Dimer Heparin Anti-Xa Level 0.71 H ABG pH 7.460 H ABG pO2 106.0 H ABG HCO3 18.9 L ABG O2 Saturation ABG Base Excess -4.4 L ABG Hemoglobin 6.8 L VBG pH Oxyhemoglobin Sodium Potassium Chloride Carbon Dioxide BUN Creatinine Glucose POC Glucose 195 H Lactic Acid Calcium AST Alkaline Phosphatase Lactate Dehydrogenase Total Creatine Kinase CK-MB (CK-2) C-Reactive Protein Total Protein Albumin Urine WBC (Auto) Urine Creatinine Urine Total Protein Coronavirus (PCR) 05/30/20 05/30/20 05/30/20 06:07 08:37 12:33 WBC RBC Hgb Hct RDW Lymph % (Auto) Walsh % (Auto) Lymph # Walsh # Seg Neutrophils % Seg Neuts % (Manual) Lymphocytes % (Manual) Seg Neutrophils # Seg Neutrophils # Man Lymphocytes # (Manual) Monocytes # (Manual) D-Dimer Heparin Anti-Xa Level 0.85 H ABG pH ABG pO2 ABG HCO3 ABG O2 Saturation ABG Base Excess ABG Hemoglobin VBG pH Oxyhemoglobin Sodium Potassium Chloride Carbon Dioxide BUN Creatinine Glucose POC Glucose 182 H 187 H Lactic Acid Calcium AST Alkaline Phosphatase Lactate Dehydrogenase Total Creatine Kinase CK-MB (CK-2) C-Reactive Protein Total Protein Albumin Urine WBC (Auto) Urine Creatinine Urine Total Protein Coronavirus (PCR) 05/30/20 05/30/20 05/30/20 15:58 17:57 23:36 WBC RBC Hgb Hct RDW Lymph % (Auto) Walsh % (Auto) Lymph # Walsh # Seg Neutrophils % Seg Neuts % (Manual) Lymphocytes % (Manual) Seg Neutrophils # Seg Neutrophils # Man Lymphocytes # (Manual) Monocytes # (Manual) D-Dimer Heparin Anti-Xa Level 1.03 H ABG pH ABG pO2 ABG HCO3 ABG O2 Saturation ABG Base Excess ABG Hemoglobin VBG pH Oxyhemoglobin Sodium Potassium Chloride Carbon Dioxide BUN Creatinine Glucose POC Glucose 208 H 185 H Lactic Acid Calcium AST Alkaline Phosphatase Lactate Dehydrogenase Total Creatine Kinase CK-MB (CK-2) C-Reactive Protein Total Protein Albumin Urine WBC (Auto) Urine Creatinine Urine Total Protein Coronavirus (PCR) 05/31/20 05/31/20 05/31/20 02:16 03:55 06:16 WBC RBC Hgb 9.2 L Hct 27.5 L RDW Lymph % (Auto) Walsh % (Auto) Lymph # Walsh # Seg Neutrophils % Seg Neuts % (Manual) Lymphocytes % (Manual) Seg Neutrophils # Seg Neutrophils # Man Lymphocytes # (Manual) Monocytes # (Manual) D-Dimer Heparin Anti-Xa Level ABG pH ABG pO2 94.7 H ABG HCO3 18.6 L ABG O2 Saturation ABG Base Excess -5.5 L ABG Hemoglobin 7.9 L VBG pH Oxyhemoglobin Sodium Potassium Chloride Carbon Dioxide BUN Creatinine Glucose POC Glucose 160 H Lactic Acid Calcium AST Alkaline Phosphatase Lactate Dehydrogenase Total Creatine Kinase CK-MB (CK-2) C-Reactive Protein Total Protein Albumin Urine WBC (Auto) Urine Creatinine Urine Total Protein Coronavirus (PCR) 05/31/20 05/31/20 05/31/20 12:20 13:03 18:13 WBC RBC Hgb Hct RDW Lymph % (Auto) Walsh % (Auto) Lymph # Walsh # Seg Neutrophils % Seg Neuts % (Manual) Lymphocytes % (Manual) Seg Neutrophils # Seg Neutrophils # Man Lymphocytes # (Manual) Monocytes # (Manual) D-Dimer Heparin Anti-Xa Level ABG pH ABG pO2 ABG HCO3 ABG O2 Saturation ABG Base Excess ABG Hemoglobin VBG pH Oxyhemoglobin Sodium Potassium Chloride Carbon Dioxide 18 L BUN 48 H Creatinine 1.6 H Glucose 115 H POC Glucose 128 H 159 H Lactic Acid Calcium 8.3 L AST Alkaline Phosphatase Lactate Dehydrogenase Total Creatine Kinase CK-MB (CK-2) C-Reactive Protein Total Protein 5.4 L Albumin 2.4 L Urine WBC (Auto) Urine Creatinine Urine Total Protein Coronavirus (PCR) 05/31/20 06/01/20 06/01/20 23:51 04:00 05:48 WBC RBC Hgb Hct RDW Lymph % (Auto) Walsh % (Auto) Lymph # Walsh # Seg Neutrophils % Seg Neuts % (Manual) Lymphocytes % (Manual) Seg Neutrophils # Seg Neutrophils # Man Lymphocytes # (Manual) Monocytes # (Manual) D-Dimer Heparin Anti-Xa Level ABG pH ABG pO2 109.8 H ABG HCO3 18.8 L ABG O2 Saturation ABG Base Excess -5.9 L ABG Hemoglobin 7.8 L VBG pH Oxyhemoglobin Sodium Potassium Chloride Carbon Dioxide BUN Creatinine Glucose POC Glucose 171 H 133 H Lactic Acid Calcium AST Alkaline Phosphatase Lactate Dehydrogenase Total Creatine Kinase CK-MB (CK-2) C-Reactive Protein Total Protein Albumin Urine WBC (Auto) Urine Creatinine Urine Total Protein Coronavirus (PCR) 06/01/20 06/01/20 06/02/20 12:28 17:29 00:08 WBC RBC Hgb Hct RDW Lymph % (Auto) Walsh % (Auto) Lymph # Walsh # Seg Neutrophils % Seg Neuts % (Manual) Lymphocytes % (Manual) Seg Neutrophils # Seg Neutrophils # Man Lymphocytes # (Manual) Monocytes # (Manual) D-Dimer Heparin Anti-Xa Level ABG pH ABG pO2 ABG HCO3 ABG O2 Saturation ABG Base Excess ABG Hemoglobin VBG pH Oxyhemoglobin Sodium Potassium Chloride Carbon Dioxide BUN Creatinine Glucose POC Glucose 199 H 209 H 162 H Lactic Acid Calcium AST Alkaline Phosphatase Lactate Dehydrogenase Total Creatine Kinase CK-MB (CK-2) C-Reactive Protein Total Protein Albumin Urine WBC (Auto) Urine Creatinine Urine Total Protein Coronavirus (PCR) 06/02/20 06/02/20 06/02/20 04:20 04:20 04:44 WBC RBC Hgb 10.0 L Hct RDW Lymph % (Auto) Walsh % (Auto) Lymph # Walsh # Seg Neutrophils % Seg Neuts % (Manual) Lymphocytes % (Manual) Seg Neutrophils # Seg Neutrophils # Man Lymphocytes # (Manual) Monocytes # (Manual) D-Dimer Heparin Anti-Xa Level 0.10 L ABG pH ABG pO2 150.6 H ABG HCO3 ABG O2 Saturation ABG Base Excess -4.1 L ABG Hemoglobin 11.8 L VBG pH Oxyhemoglobin Sodium Potassium Chloride Carbon Dioxide BUN Creatinine Glucose POC Glucose Lactic Acid Calcium AST Alkaline Phosphatase Lactate Dehydrogenase Total Creatine Kinase CK-MB (CK-2) C-Reactive Protein Total Protein Albumin Urine WBC (Auto) Urine Creatinine Urine Total Protein Coronavirus (PCR) 06/02/20 06/02/20 06/02/20 05:53 12:04 13:49 WBC RBC Hgb Hct RDW Lymph % (Auto) Walsh % (Auto) Lymph # Walsh # Seg Neutrophils % Seg Neuts % (Manual) Lymphocytes % (Manual) Seg Neutrophils # Seg Neutrophils # Man Lymphocytes # (Manual) Monocytes # (Manual) D-Dimer Heparin Anti-Xa Level 0.28 L ABG pH ABG pO2 ABG HCO3 ABG O2 Saturation ABG Base Excess ABG Hemoglobin VBG pH Oxyhemoglobin Sodium Potassium Chloride Carbon Dioxide BUN Creatinine Glucose POC Glucose 149 H 220 H Lactic Acid Calcium AST Alkaline Phosphatase Lactate Dehydrogenase Total Creatine Kinase CK-MB (CK-2) C-Reactive Protein Total Protein Albumin Urine WBC (Auto) Urine Creatinine Urine Total Protein Coronavirus (PCR) 06/02/20 06/02/20 06/03/20 13:49 18:31 00:42 WBC RBC Hgb Hct RDW Lymph % (Auto) Walsh % (Auto) Lymph # Walsh # Seg Neutrophils % Seg Neuts % (Manual) Lymphocytes % (Manual) Seg Neutrophils # Seg Neutrophils # Man Lymphocytes # (Manual) Monocytes # (Manual) D-Dimer 769.68 H Heparin Anti-Xa Level ABG pH ABG pO2 ABG HCO3 ABG O2 Saturation ABG Base Excess ABG Hemoglobin VBG pH Oxyhemoglobin Sodium Potassium Chloride Carbon Dioxide BUN Creatinine Glucose POC Glucose 225 H 212 H Lactic Acid Calcium AST Alkaline Phosphatase Lactate Dehydrogenase Total Creatine Kinase CK-MB (CK-2) C-Reactive Protein Total Protein Albumin Urine WBC (Auto) Urine Creatinine Urine Total Protein Coronavirus (PCR) 06/03/20 06/03/20 06/03/20 05:16 05:16 05:25 WBC 11.4 H RBC Hgb Hct RDW 16.4 H Lymph % (Auto) Walsh % (Auto) Lymph # Walsh # Seg Neutrophils % Seg Neuts % (Manual) Lymphocytes % (Manual) Seg Neutrophils # Seg Neutrophils # Man Lymphocytes # (Manual) Monocytes # (Manual) D-Dimer Heparin Anti-Xa Level ABG pH ABG pO2 160.9 H ABG HCO3 19.4 L ABG O2 Saturation ABG Base Excess -4.9 L ABG Hemoglobin 7.0 L VBG pH Oxyhemoglobin Sodium Potassium Chloride Carbon Dioxide 18 L BUN 65 H Creatinine 2.0 H Glucose 175 H POC Glucose Lactic Acid Calcium 8.0 L AST Alkaline Phosphatase Lactate Dehydrogenase Total Creatine Kinase CK-MB (CK-2) C-Reactive Protein Total Protein 5.5 L Albumin 2.2 L Urine WBC (Auto) Urine Creatinine Urine Total Protein Coronavirus (PCR) 06/03/20 06/03/20 06/03/20 06:07 11:58 18:24 WBC RBC Hgb Hct RDW Lymph % (Auto) Walsh % (Auto) Lymph # Walsh # Seg Neutrophils % Seg Neuts % (Manual) Lymphocytes % (Manual) Seg Neutrophils # Seg Neutrophils # Man Lymphocytes # (Manual) Monocytes # (Manual) D-Dimer Heparin Anti-Xa Level ABG pH ABG pO2 ABG HCO3 ABG O2 Saturation ABG Base Excess ABG Hemoglobin VBG pH Oxyhemoglobin Sodium Potassium Chloride Carbon Dioxide BUN Creatinine Glucose POC Glucose 177 H 163 H 211 H Lactic Acid Calcium AST Alkaline Phosphatase Lactate Dehydrogenase Total Creatine Kinase CK-MB (CK-2) C-Reactive Protein Total Protein Albumin Urine WBC (Auto) Urine Creatinine Urine Total Protein Coronavirus (PCR) 06/03/20 06/03/20 06/04/20 21:50 Unknown 00:26 WBC RBC Hgb Hct RDW Lymph % (Auto) Walsh % (Auto) Lymph # Walsh # Seg Neutrophils % Seg Neuts % (Manual) Lymphocytes % (Manual) Seg Neutrophils # Seg Neutrophils # Man Lymphocytes # (Manual) Monocytes # (Manual) D-Dimer Heparin Anti-Xa Level ABG pH ABG pO2 ABG HCO3 ABG O2 Saturation ABG Base Excess ABG Hemoglobin VBG pH Oxyhemoglobin Sodium 135 L Potassium Chloride Carbon Dioxide 18 L BUN Creatinine Glucose POC Glucose 241 H Lactic Acid Calcium AST Alkaline Phosphatase Lactate Dehydrogenase Total Creatine Kinase CK-MB (CK-2) C-Reactive Protein Total Protein Albumin Urine WBC (Auto) 11.0 H Urine Creatinine Urine Total Protein Coronavirus (PCR) 06/04/20 06/04/20 06/04/20 03:35 04:19 04:19 WBC RBC 3.15 L Hgb 8.9 L Hct 26.8 L D RDW 15.9 H Lymph % (Auto) 6.0 L Walsh % (Auto) Lymph # 0.6 L Walsh # Seg Neutrophils % 86.6 H Seg Neuts % (Manual) Lymphocytes % (Manual) Seg Neutrophils # 9.1 H Seg Neutrophils # Man Lymphocytes # (Manual) Monocytes # (Manual) D-Dimer Heparin Anti-Xa Level ABG pH 7.331 L ABG pO2 ABG HCO3 ABG O2 Saturation ABG Base Excess -4.7 L ABG Hemoglobin 11.0 L VBG pH Oxyhemoglobin 93.9 L Sodium 136 L Potassium Chloride Carbon Dioxide 20 L BUN 73 H Creatinine 2.0 H Glucose 192 H POC Glucose Lactic Acid Calcium 8.0 L AST Alkaline Phosphatase Lactate Dehydrogenase 271 H Total Creatine Kinase CK-MB (CK-2) C-Reactive Protein 2.20 H Total Protein 5.0 L Albumin 2.0 L Urine WBC (Auto) Urine Creatinine Urine Total Protein Coronavirus (PCR) 06/04/20 06/04/20 06/04/20 04:19 05:51 11:48 WBC RBC Hgb Hct RDW Lymph % (Auto) Walsh % (Auto) Lymph # Walsh # Seg Neutrophils % Seg Neuts % (Manual) Lymphocytes % (Manual) Seg Neutrophils # Seg Neutrophils # Man Lymphocytes # (Manual) Monocytes # (Manual) D-Dimer 414.52 H Heparin Anti-Xa Level ABG pH ABG pO2 ABG HCO3 ABG O2 Saturation ABG Base Excess ABG Hemoglobin VBG pH Oxyhemoglobin Sodium Potassium Chloride Carbon Dioxide BUN Creatinine Glucose POC Glucose 179 H 213 H Lactic Acid Calcium AST Alkaline Phosphatase Lactate Dehydrogenase Total Creatine Kinase CK-MB (CK-2) C-Reactive Protein Total Protein Albumin Urine WBC (Auto) Urine Creatinine Urine Total Protein Coronavirus (PCR) 06/04/20 06/05/20 06/05/20 18:25 00:16 05:00 WBC RBC Hgb Hct RDW Lymph % (Auto) Walsh % (Auto) Lymph # Walsh # Seg Neutrophils % Seg Neuts % (Manual) Lymphocytes % (Manual) Seg Neutrophils # Seg Neutrophils # Man Lymphocytes # (Manual) Monocytes # (Manual) D-Dimer Heparin Anti-Xa Level ABG pH 7.286 L ABG pO2 96.2 H ABG HCO3 ABG O2 Saturation ABG Base Excess -6.3 L ABG Hemoglobin 8.8 L VBG pH Oxyhemoglobin 94.8 L Sodium Potassium Chloride Carbon Dioxide BUN Creatinine Glucose POC Glucose 238 H 183 H Lactic Acid Calcium AST Alkaline Phosphatase Lactate Dehydrogenase Total Creatine Kinase CK-MB (CK-2) C-Reactive Protein Total Protein Albumin Urine WBC (Auto) Urine Creatinine Urine Total Protein Coronavirus (PCR) 06/05/20 06/05/20 06/05/20 05:39 07:25 07:25 WBC RBC 2.97 L Hgb 8.7 L Hct 25.7 L RDW 16.0 H Lymph % (Auto) 8.8 L Walsh % (Auto) 13.3 H Lymph # 0.8 L Walsh # 1.3 H Seg Neutrophils % 77.3 H Seg Neuts % (Manual) Lymphocytes % (Manual) Seg Neutrophils # Seg Neutrophils # Man Lymphocytes # (Manual) Monocytes # (Manual) D-Dimer Heparin Anti-Xa Level ABG pH ABG pO2 ABG HCO3 ABG O2 Saturation ABG Base Excess ABG Hemoglobin VBG pH Oxyhemoglobin Sodium 133 L Potassium Chloride Carbon Dioxide 17 L BUN 89 H Creatinine 2.8 H Glucose 176 H POC Glucose 149 H Lactic Acid Calcium 7.7 L AST Alkaline Phosphatase Lactate Dehydrogenase Total Creatine Kinase CK-MB (CK-2) C-Reactive Protein Total Protein 4.2 L Albumin 1.9 L Urine WBC (Auto) Urine Creatinine Urine Total Protein Coronavirus (PCR) 06/05/20 06/05/20 06/05/20 07:25 12:05 15:41 WBC RBC Hgb Hct RDW Lymph % (Auto) Walsh % (Auto) Lymph # Walsh # Seg Neutrophils % Seg Neuts % (Manual) Lymphocytes % (Manual) Seg Neutrophils # Seg Neutrophils # Man Lymphocytes # (Manual) Monocytes # (Manual) D-Dimer Heparin Anti-Xa Level 0.76 H 0.81 H ABG pH ABG pO2 ABG HCO3 ABG O2 Saturation ABG Base Excess ABG Hemoglobin VBG pH Oxyhemoglobin Sodium Potassium Chloride Carbon Dioxide BUN Creatinine Glucose POC Glucose 198 H Lactic Acid Calcium AST Alkaline Phosphatase Lactate Dehydrogenase Total Creatine Kinase CK-MB (CK-2) C-Reactive Protein Total Protein Albumin Urine WBC (Auto) Urine Creatinine Urine Total Protein Coronavirus (PCR) 06/05/20 06/05/20 06/06/20 18:08 23:25 04:00 WBC RBC Hgb Hct RDW Lymph % (Auto) [place] % (Auto) Lymph # [place] # Seg Neutrophils % Seg Neuts % (Manual) Lymphocytes % (Manual) Seg Neutrophils # Seg Neutrophils # Man Lymphocytes # (Manual) Monocytes # (Manual) D-Dimer Heparin Anti-Xa Level ABG pH ABG pO2 ABG HCO3 ABG O2 Saturation ABG Base Excess ABG Hemoglobin VBG pH Oxyhemoglobin Sodium Potassium Chloride Carbon Dioxide BUN Creatinine Glucose POC Glucose 223 H 169 H Lactic Acid Calcium AST Alkaline Phosphatase Lactate Dehydrogenase Total Creatine Kinase CK-MB (CK-2) C-Reactive Protein Total Protein Albumin Urine WBC (Auto) 15.0 H Urine Creatinine Urine Total Protein Coronavirus (PCR) 06/06/20 06/06/20 06/06/20 04:00 05:33 05:38 WBC RBC 2.97 L Hgb 8.7 L Hct 26.8 L RDW 16.8 H Lymph % (Auto) [place] % (Auto) Lymph # [place] # Seg Neutrophils % Seg Neuts % (Manual) Lymphocytes % (Manual) Seg Neutrophils # Seg Neutrophils # Man Lymphocytes # (Manual) Monocytes # (Manual) D-Dimer Heparin Anti-Xa Level ABG pH ABG pO2 ABG HCO3 ABG O2 Saturation ABG Base Excess ABG Hemoglobin VBG pH Oxyhemoglobin Sodium Potassium Chloride Carbon Dioxide BUN Creatinine Glucose POC Glucose 186 H Lactic Acid Calcium AST Alkaline Phosphatase Lactate Dehydrogenase Total Creatine Kinase CK-MB (CK-2) C-Reactive Protein Total Protein Albumin Urine WBC (Auto) Urine Creatinine 82.2 H Urine Total Protein 196 H Coronavirus (PCR) 06/06/20 06/06/20 06/06/20 05:38 12:25 17:03 WBC RBC Hgb Hct RDW Lymph % (Auto) [place] % (Auto) Lymph # [place] # Seg Neutrophils % Seg Neuts % (Manual) Lymphocytes % (Manual) Seg Neutrophils # Seg Neutrophils # Man Lymphocytes # (Manual) Monocytes # (Manual) D-Dimer Heparin Anti-Xa Level ABG pH ABG pO2 ABG HCO3 ABG O2 Saturation ABG Base Excess ABG Hemoglobin VBG pH Oxyhemoglobin Sodium 134 L Potassium 5.2 H Chloride Carbon Dioxide 18 L BUN 97 H Creatinine 2.5 H Glucose 193 H POC Glucose 239 H 252 H Lactic Acid Calcium 7.5 L AST Alkaline Phosphatase Lactate Dehydrogenase Total Creatine Kinase CK-MB (CK-2) C-Reactive Protein Total Protein 4.1 L Albumin 1.9 L Urine WBC (Auto) Urine Creatinine Urine Total Protein Coronavirus (PCR) 06/07/20 06/07/20 06/07/20 00:16 01:49 04:00 WBC RBC 2.91 L Hgb 8.4 L Hct 25.0 L RDW 16.1 H Lymph % (Auto) 5.7 L [place] % (Auto) 10.5 H Lymph # 0.6 L [place] # 1.1 H Seg Neutrophils % 83.6 H Seg Neuts % (Manual) Lymphocytes % (Manual) Seg Neutrophils # 9.1 H Seg Neutrophils # Man Lymphocytes # (Manual) Monocytes # (Manual) D-Dimer Heparin Anti-Xa Level 0.26 L ABG pH ABG pO2 ABG HCO3 ABG O2 Saturation ABG Base Excess ABG Hemoglobin VBG pH Oxyhemoglobin Sodium Potassium Chloride Carbon Dioxide BUN Creatinine Glucose POC Glucose 173 H Lactic Acid Calcium AST Alkaline Phosphatase Lactate Dehydrogenase Total Creatine Kinase CK-MB (CK-2) C-Reactive Protein Total Protein Albumin Urine WBC (Auto) Urine Creatinine Urine Total Protein Coronavirus (PCR) 06/07/20 06/07/20 06/07/20 04:00 04:54 05:51 WBC RBC Hgb Hct RDW Lymph % (Auto) [place] % (Auto) Lymph # [place] # Seg Neutrophils % Seg Neuts % (Manual) Lymphocytes % (Manual) Seg Neutrophils # Seg Neutrophils # Man Lymphocytes # (Manual) Monocytes # (Manual) D-Dimer Heparin Anti-Xa Level ABG pH 7.317 L ABG pO2 71.4 L ABG HCO3 ABG O2 Saturation 94.3 L ABG Base Excess -4.8 L ABG Hemoglobin 7.1 L VBG pH Oxyhemoglobin 92.2 L Sodium 133 L Potassium Chloride Carbon Dioxide 18 L BUN 100 H Creatinine 2.5 H Glucose 158 H POC Glucose 168 H Lactic Acid Calcium 7.6 L AST Alkaline Phosphatase Lactate Dehydrogenase Total Creatine Kinase CK-MB (CK-2) C-Reactive Protein Total Protein 4.7 L Albumin 2.0 L Urine WBC (Auto) Urine Creatinine Urine Total Protein Coronavirus (PCR) 06/07/20 06/07/20 06/07/20 12:03 17:17 20:10 WBC RBC Hgb Hct RDW Lymph % (Auto) [place] % (Auto) Lymph # [place] # Seg Neutrophils % Seg Neuts % (Manual) Lymphocytes % (Manual) Seg Neutrophils # Seg Neutrophils # Man Lymphocytes # (Manual) Monocytes # (Manual) D-Dimer Heparin Anti-Xa Level 0.17 L ABG pH ABG pO2 ABG HCO3 ABG O2 Saturation ABG Base Excess ABG Hemoglobin VBG pH Oxyhemoglobin Sodium Potassium Chloride Carbon Dioxide BUN Creatinine Glucose POC Glucose 276 H 281 H Lactic Acid Calcium AST Alkaline Phosphatase Lactate Dehydrogenase Total Creatine Kinase CK-MB (CK-2) C-Reactive Protein Total Protein Albumin Urine WBC (Auto) Urine Creatinine Urine Total Protein Coronavirus (PCR) 06/08/20 06/08/20 06/08/20 00:02 04:47 04:47 WBC 16.4 H RBC 3.07 L Hgb 8.6 L Hct 26.5 L RDW 16.3 H Lymph % (Auto) [place] % (Auto) Lymph # [place] # Seg Neutrophils % Seg Neuts % (Manual) 90.0 H Lymphocytes % (Manual) 3.0 L Seg Neutrophils # Seg Neutrophils # Man 14.8 H Lymphocytes # (Manual) 0.5 L Monocytes # (Manual) 1.1 H D-Dimer Heparin Anti-Xa Level ABG pH ABG pO2 ABG HCO3 ABG O2 Saturation ABG Base Excess ABG Hemoglobin VBG pH Oxyhemoglobin Sodium 129 L Potassium Chloride 95.6 L Carbon Dioxide 17 L BUN 106 H Creatinine 2.5 H Glucose 213 H POC Glucose 242 H Lactic Acid Calcium 7.6 L AST Alkaline Phosphatase Lactate Dehydrogenase Total Creatine Kinase CK-MB (CK-2) C-Reactive Protein Total Protein 5.0 L Albumin 2.1 L Urine WBC (Auto) Urine Creatinine Urine Total Protein Coronavirus (PCR) 06/08/20 06/08/20 06/08/20 05:40 11:55 17:54 WBC RBC Hgb Hct RDW Lymph % (Auto) [place] % (Auto) Lymph # [place] # Seg Neutrophils % Seg Neuts % (Manual) Lymphocytes % (Manual) Seg Neutrophils # Seg Neutrophils # Man Lymphocytes # (Manual) Monocytes # (Manual) D-Dimer Heparin Anti-Xa Level ABG pH ABG pO2 ABG HCO3 ABG O2 Saturation ABG Base Excess ABG Hemoglobin VBG pH Oxyhemoglobin Sodium Potassium Chloride Carbon Dioxide BUN Creatinine Glucose POC Glucose 221 H 218 H 163 H Lactic Acid Calcium AST Alkaline Phosphatase Lactate Dehydrogenase Total Creatine Kinase CK-MB (CK-2) C-Reactive Protein Total Protein Albumin Urine WBC (Auto) Urine Creatinine Urine Total Protein Coronavirus (PCR) 06/08/20 06/09/20 06/09/20 22:01 00:09 05:16 WBC 19.0 H RBC 3.35 L Hgb 9.2 L Hct 28.5 L RDW 16.3 H Lymph % (Auto) [place] % (Auto) Lymph # [place] # Seg Neutrophils % Seg Neuts % (Manual) 85.0 H Lymphocytes % (Manual) 7.0 L Seg Neutrophils # Seg Neutrophils # Man 16.2 H Lymphocytes # (Manual) Monocytes # (Manual) 1.3 H D-Dimer Heparin Anti-Xa Level ABG pH ABG pO2 ABG HCO3 ABG O2 Saturation ABG Base Excess ABG Hemoglobin VBG pH Oxyhemoglobin Sodium Potassium Chloride Carbon Dioxide BUN Creatinine Glucose POC Glucose 182 H 150 H Lactic Acid Calcium AST Alkaline Phosphatase Lactate Dehydrogenase Total Creatine Kinase CK-MB (CK-2) C-Reactive Protein Total Protein Albumin Urine WBC (Auto) Urine Creatinine Urine Total Protein Coronavirus (PCR) 06/09/20 06/09/20 06/09/20 05:16 05:24 11:29 WBC RBC Hgb Hct RDW Lymph % (Auto) [place] % (Auto) Lymph # Walsh # Seg Neutrophils % Seg Neuts % (Manual) Lymphocytes % (Manual) Seg Neutrophils # Seg Neutrophils # Man Lymphocytes # (Manual) Monocytes # (Manual) D-Dimer Heparin Anti-Xa Level ABG pH ABG pO2 ABG HCO3 ABG O2 Saturation ABG Base Excess ABG Hemoglobin VBG pH Oxyhemoglobin Sodium 133 L Potassium Chloride Carbon Dioxide 19 L BUN 109 H Creatinine 2.1 H Glucose 133 H POC Glucose 128 H 119 H Lactic Acid Calcium 7.7 L AST Alkaline Phosphatase < 5 L Lactate Dehydrogenase Total Creatine Kinase CK-MB (CK-2) C-Reactive Protein Total Protein 4.6 L Albumin < 0.2 L Urine WBC (Auto) Urine Creatinine Urine Total Protein Coronavirus (PCR) 06/09/20 06/10/20 06/10/20 17:32 00:00 05:49 WBC RBC Hgb Hct RDW Lymph % (Auto) Walsh % (Auto) Lymph # Walsh # Seg Neutrophils % Seg Neuts % (Manual) Lymphocytes % (Manual) Seg Neutrophils # Seg Neutrophils # Man Lymphocytes # (Manual) Monocytes # (Manual) D-Dimer Heparin Anti-Xa Level 0.19 L ABG pH ABG pO2 ABG HCO3 ABG O2 Saturation ABG Base Excess ABG Hemoglobin VBG pH Oxyhemoglobin Sodium Potassium Chloride Carbon Dioxide BUN Creatinine Glucose POC Glucose 106 H 117 H Lactic Acid Calcium AST Alkaline Phosphatase Lactate Dehydrogenase Total Creatine Kinase CK-MB (CK-2) C-Reactive Protein Total Protein Albumin Urine WBC (Auto) Urine Creatinine Urine Total Protein Coronavirus (PCR) 06/10/20 06/10/20 06/10/20 05:54 07:40 11:40 WBC RBC Hgb Hct RDW Lymph % (Auto) Walsh % (Auto) Lymph # Walsh # Seg Neutrophils % Seg Neuts % (Manual) Lymphocytes % (Manual) Seg Neutrophils # Seg Neutrophils # Man Lymphocytes # (Manual) Monocytes # (Manual) D-Dimer Heparin Anti-Xa Level ABG pH ABG pO2 ABG HCO3 ABG O2 Saturation ABG Base Excess ABG Hemoglobin VBG pH Oxyhemoglobin Sodium 146 H D Potassium Chloride Carbon Dioxide 20 L BUN 99 H Creatinine 1.9 H Glucose 121 H POC Glucose 127 H 138 H Lactic Acid Calcium 8.2 L AST Alkaline Phosphatase Lactate Dehydrogenase Total Creatine Kinase CK-MB (CK-2) C-Reactive Protein Total Protein Albumin Urine WBC (Auto) Urine Creatinine Urine Total Protein Coronavirus (PCR) 06/10/20 06/10/20 06/10/20 14:44 17:31 23:22 WBC RBC Hgb Hct RDW Lymph % (Auto) Walsh % (Auto) Lymph # Walsh # Seg Neutrophils % Seg Neuts % (Manual) Lymphocytes % (Manual) Seg Neutrophils # Seg Neutrophils # Man Lymphocytes # (Manual) Monocytes # (Manual) D-Dimer Heparin Anti-Xa Level 0.17 L ABG pH ABG pO2 ABG HCO3 ABG O2 Saturation ABG Base Excess ABG Hemoglobin VBG pH Oxyhemoglobin Sodium Potassium Chloride Carbon Dioxide BUN Creatinine Glucose POC Glucose 128 H 114 H Lactic Acid Calcium AST Alkaline Phosphatase Lactate Dehydrogenase Total Creatine Kinase CK-MB (CK-2) C-Reactive Protein Total Protein Albumin Urine WBC (Auto) Urine Creatinine Urine Total Protein Coronavirus (PCR) 06/11/20 06/11/20 06/11/20 00:22 03:45 03:45 WBC 14.6 H RBC 2.77 L Hgb 7.9 L Hct 24.3 L RDW 16.8 H Lymph % (Auto) 6.6 L Walsh % (Auto) 8.5 H Lymph # 1.0 L Walsh # 1.2 H Seg Neutrophils % 82.9 H Seg Neuts % (Manual) Lymphocytes % (Manual) Seg Neutrophils # 12.1 H Seg Neutrophils # Man Lymphocytes # (Manual) Monocytes # (Manual) D-Dimer Heparin Anti-Xa Level 0.24 L ABG pH ABG pO2 ABG HCO3 ABG O2 Saturation ABG Base Excess ABG Hemoglobin VBG pH Oxyhemoglobin Sodium Potassium Chloride Carbon Dioxide 20 L BUN 88 H Creatinine 1.5 H Glucose 111 H POC Glucose Lactic Acid Calcium 8.2 L AST Alkaline Phosphatase Lactate Dehydrogenase Total Creatine Kinase CK-MB (CK-2) C-Reactive Protein Total Protein Albumin Urine WBC (Auto) Urine Creatinine Urine Total Protein Coronavirus (PCR) 06/11/20 06/11/20 06/11/20 06:03 10:22 11:11 WBC RBC Hgb Hct RDW Lymph % (Auto) Walsh % (Auto) Lymph # Walsh # Seg Neutrophils % Seg Neuts % (Manual) Lymphocytes % (Manual) Seg Neutrophils # Seg Neutrophils # Man Lymphocytes # (Manual) Monocytes # (Manual) D-Dimer Heparin Anti-Xa Level 0.26 L ABG pH ABG pO2 ABG HCO3 ABG O2 Saturation ABG Base Excess ABG Hemoglobin 9.6 L VBG pH Oxyhemoglobin Sodium Potassium Chloride Carbon Dioxide BUN Creatinine Glucose POC Glucose 114 H Lactic Acid Calcium AST Alkaline Phosphatase Lactate Dehydrogenase Total Creatine Kinase CK-MB (CK-2) C-Reactive Protein Total Protein Albumin Urine WBC (Auto) Urine Creatinine Urine Total Protein Coronavirus (PCR) 06/11/20 12:24 WBC RBC Hgb Hct RDW Lymph % (Auto) Walsh % (Auto) Lymph # Walsh # Seg Neutrophils % Seg Neuts % (Manual) Lymphocytes % (Manual) Seg Neutrophils # Seg Neutrophils # Man Lymphocytes # (Manual) Monocytes # (Manual) D-Dimer Heparin Anti-Xa Level ABG pH ABG pO2 ABG HCO3 ABG O2 Saturation ABG Base Excess ABG Hemoglobin VBG pH Oxyhemoglobin Sodium Potassium Chloride Carbon Dioxide BUN Creatinine Glucose POC Glucose 119 H Lactic Acid Calcium AST Alkaline Phosphatase Lactate Dehydrogenase Total Creatine Kinase CK-MB (CK-2) C-Reactive Protein Total Protein Albumin Urine WBC (Auto) Urine Creatinine Urine Total Protein Coronavirus (PCR) Chest x-ray: image reviewed Allied health notes reviewed: RT
--- NOTE | 2020-06-11 16:46 | Progress Note ---
Assessment and Plan Cultures: Coronavirus PCR: Positive 05/28/2020 blood culture: no growth 05/28/2020 tracheal aspirate: Usual respiratory bobo 05/28/2020 urine culture: No growth 06/03/2020 urine culture: No growth Sputum culture: Klebsiella A/P: 64-year-old female with hypertension, diastolic CHF, pulmonary hypertension, diabetes, obesity hypoventilation syndrome was admitted to the emergency room after she called EMS due to difficulty breathing. On the way to the hospital, patient developed cardiac arrest and was treated as per ACLS protocol: #Bilateral pneumonia: Secondary to COVID-19. Completed 5 days of IV Remdesivir 06/02/2020. #Acute hypoxic respiratory failure: On mechanical ventilation. Minimal vent settings. #Klebsiella pneumonia: S to cefepime, continue #Status post PEA arrest, encephalopathy #HF: EF 45-50% #Mild LFT elevation: likely from COVID-19. #Mild AVANI not better Recs: Continue to monitor. Stopped vancomycin. Continue cefepime to complete 10 days Follow-up cultures Keisha Chaudhari MD [facility] M: [phone] O: [phone] F: [phone] Subjective Date of service: 06/11/20 Principal diagnosis: Ac hypoxemic resp failure; COVID-19; pneumonia; CHF; Pulm HTN; OHS; DM II Interval history: Afebrile, white count improving. SCx with Klebsiella, mostly sensitive. Objective - Exam Narrative Exam: Physical exam deferred due to PPE conservation strategy. Please refer to primary team's note. - Constitutional Vitals: Vital Signs Temp Pulse Resp BP Pulse Ox 98.6 F 77 11 L 132/46 98 06/11/20 12:00 06/11/20 16:00 06/11/20 16:00 06/11/20 16:00 06/11/20 16:00 Temperature -Last 24 Hours Temperature 98.6 F Temperature 98.2 F Temperature 98.9 F Temperature 99.5 F Temperature 99.9 F - Labs CBC & Chem 7: 06/11/20 03:45 06/11/20 03:45 Labs: Abnormal lab results 06/10/20 06/10/20 06/11/20 Range/Units 17:31 23:22 00:22 WBC (4.5-11.0) K/mm3 RBC (3.65-5.03) M/mm3 Hgb (10.1-14.3) gm/dl Hct (30.3-42.9) % RDW (13.2-15.2) % Lymph % (Auto) (13.4-35.0) % [place] % (Auto) (0.0-7.3) % Lymph # (1.2-5.4) K/mm3 [place] # (0.0-0.8) K/mm3 Seg Neutrophils % (40.0-70.0) % Seg Neutrophils # (1.8-7.7) K/mm3 Heparin Anti-Xa Level 0.24 L (0.3-0.7) U.I./ml ABG Hemoglobin (12.0-17.5) Carbon Dioxide (22-30) mmol/L BUN (7-17) mg/dL Creatinine (0.6-1.2) mg/dL Glucose (65-100) mg/dL POC Glucose 128 H 114 H (70-105) Calcium (8.4-10.2) mg/dL 06/11/20 06/11/20 06/11/20 Range/Units 03:45 03:45 06:03 WBC 14.6 H (4.5-11.0) K/mm3 RBC 2.77 L (3.65-5.03) M/mm3 Hgb 7.9 L (10.1-14.3) gm/dl Hct 24.3 L (30.3-42.9) % RDW 16.8 H (13.2-15.2) % Lymph % (Auto) 6.6 L (13.4-35.0) % [place] % (Auto) 8.5 H (0.0-7.3) % Lymph # 1.0 L (1.2-5.4) K/mm3 [place] # 1.2 H (0.0-0.8) K/mm3 Seg Neutrophils % 82.9 H (40.0-70.0) % Seg Neutrophils # 12.1 H (1.8-7.7) K/mm3 Heparin Anti-Xa Level (0.3-0.7) U.I./ml ABG Hemoglobin (12.0-17.5) Carbon Dioxide 20 L (22-30) mmol/L BUN 88 H (7-17) mg/dL Creatinine 1.5 H (0.6-1.2) mg/dL Glucose 111 H (65-100) mg/dL POC Glucose 114 H (70-105) Calcium 8.2 L (8.4-10.2) mg/dL 06/11/20 06/11/20 06/11/20 Range/Units 10:22 11:11 12:24 WBC (4.5-11.0) K/mm3 RBC (3.65-5.03) M/mm3 Hgb (10.1-14.3) gm/dl Hct (30.3-42.9) % RDW (13.2-15.2) % Lymph % (Auto) (13.4-35.0) % [place] % (Auto) (0.0-7.3) % Lymph # (1.2-5.4) K/mm3 [place] # (0.0-0.8) K/mm3 Seg Neutrophils % (40.0-70.0) % Seg Neutrophils # (1.8-7.7) K/mm3 Heparin Anti-Xa Level 0.26 L (0.3-0.7) U.I./ml ABG Hemoglobin 9.6 L (12.0-17.5) Carbon Dioxide (22-30) mmol/L BUN (7-17) mg/dL Creatinine (0.6-1.2) mg/dL Glucose (65-100) mg/dL POC Glucose 119 H (70-105) Calcium (8.4-10.2) mg/dL
--- NOTE | 2020-06-11 17:45 | Vascular Lab Report ---
DUPLEX DOPPLER UPPER EXTREMITY VENOUS, LEFT INDICATION / CLINICAL INFORMATION: left arm swelling.. TECHNIQUE: Duplex doppler imaging was performed through the veins of the left upper extremity using venous compr ession and other maneuvers. COMPARISON: None available. FINDINGS: LEFT INTERNAL JUGULAR VEIN: Negative. LEFT SUBCLAVIAN VEIN: Negative. LEFT AXILLARY VEIN: Negative. LEFT BRACHIAL VEIN: Negative. LEFT FOREARM VEINS: Negative. LEFT BASILIC VEIN (SUPERFICIAL): Negative. ADDITIONAL FINDINGS: Thrombus is noted in the cephalic vein in the left upper extremity. This is a turpin perficial vein. IMPRESSION: 1. No sonographic evidence for DVT. 2. Thrombus is noted in the left cephalic vein which is a superficial vein. Signer Name: Buddy Llanos MD Signed: 06/11/2020 5:41 PM Workstation Name: [id number]
[2020-06-11] MEDS: INSULIN GLARGINE 100 UNITS/ML SUB-Q SCH (22:14)
[2020-06-11] MEDS: QUEtiapine 200 MG TAB PO SCH (22:15)
[2020-06-12] MEDS: INSULIN LISPRO 100 UNIT/ML VIAL 3 mL SUB-Q SCH ×4 (01:06→18:12)
[2020-06-12] MEDS: METOCLOPRAMIDE 10 MG/2 ML INJ IV SCH ×4 (01:39→22:19)
[2020-06-12 03:03] LABS: Basophils % (Auto) 0.2 % (0.0-1.8); Eosinophils # (Auto) 0.3 K/mm3 (0.0-0.4); Eosinophils % (Auto) 2.2 % (0.0-4.3); Hematocrit 24.3 % (30.3-42.9); Hemoglobin 8.3 gm/dl (10.1-14.3); Lymphocytes # (Auto) 0.8 K/mm3 (1.2-5.4); Lymphocytes % (Auto) 6.2 % (13.4-35.0); Mean Corpuscular HGB Conc 34 % (30-34); Mean Corpuscular Volume 86 fl (79-97); Monocytes # (Auto) 1.3 K/mm3 (0.0-0.8); Monocytes % (Auto) 9.5 % (0.0-7.3); Platelet Count 207 K/mm3 (140-440); Red Blood Count 2.83 M/mm3 (3.65-5.03); Red Cell Distribution Width 16.6 % (13.2-15.2)
[2020-06-12 03:25] LABS: Calcium 8.3 mg/dL (8.4-10.2)
[2020-06-12] MEDS: cloNIDine 0.2 MG TAB PO SCH ×3 (05:59→21:32)
[2020-06-12] MEDS: cloNIDine 0.1 MG TAB PO SCH ×3 (06:00→22:59)
[2020-06-12] MEDS: FUROSEMIDE 40 MG/4 ML INJ IV SCH ×2 (06:00→18:13)
[2020-06-12] MEDS: hydrALAZINE 25 MG TAB PO SCH ×3 (06:00→21:31)
--- NOTE | 2020-06-12 07:54 | Progress Note ---
Assessment and Plan -- Acute hypoxemic respiratory failure From COVID-19 viral infection Patient intubated, sedated and on ventilatory support. Critical care team on board On SBT as per critical care team -- s/p PEA Cardiac arrest Cardiology team on board Conservative management as per cardiology -- Acute metabolic encephalopathy, POA likely from sepsis and s/p cardiac arrest with possible anoxic injury -- Acute renal failure likely ATN Cr slowly improving Avoid ACEI and other nephrotoxic medications Nephrology following -- Coronavirus infection with b/l PNA Completed remdesivir on 06/02 Continue dexamethasone - Last dose 06/07 ID recs appreciated. Maintained on ventilator --Klebsiella pneumonia: S to cefepime, continue --CHF (congestive heart failure) Cardiology following. Ef 45% -- Coffee ground emesis -Stress ulcers Possible stress ulcers On PPI H/H remains stable GI evaluation if Hb drops again -- Hypertension Continue amlodipine, coreg, clonidine and hydralazine Monitor BP --Mild LFT elevation: likely from COVID-19. -- DVT prophylaxis SCD to bilateral lower extremities while in bed Heparin -- Advance care planning Patient is full code. poor prognosis The high probability of a clinically significant, sudden or life threatening deterioration of the [[employer], CVS, respiratory, renal] system(s) required my full and direct attention, intervention and personal management. The aggregate critical care time was [32] minutes. This time is in addition to time spent performing reported procedures but includes the following: [x] Data Review and interpretation [x] Patient assessment and monitoring of vital signs [x] Documentation [x] Medication orders and management Brief History; 64 YO Female with a medical history of HTN, Diastolic CHF, Pulmonary HTN, DM, Obesity Hypoventilation Syndrome presents to ED for evaluation of shortness of breath. Patients history taken from EMS staff, ED staff. As per staff, the EMS was notified for difficulty breathing. Upon arrival to the patient's home the patient was found to be in distress and was subsequently transported to [facility] for further evaluation and care. In route to [facility] the patient developed cardiac arrest and was treated in accordance with ACLS protocol with return of ROSC Patient was seen and evaluated in the emergency department and was found to have acute hypoxemic respiratory failure status post cardiac arrest. Patient was intubated and placed on ventilatory support. Patient admitted to ICU due to increased risk of decompensation. Critical care team consulted in ED. She was found to have COVID-19 iinfection and was started on steroids and remdesivir. ID was consulted. Cardiology was consulted for her systolic heart failure and cardiac arrest. 06/01. Patient remains intubated and on ventilatory support today. Patient has multiple organ system failure and has poor prognosis. Patient did not experience significant medical decompensation overnight but no improvement with current therapy. 06/02. Remains intubated. her BP is elevated. Started on nicardipine drip. Cardiology following. 06/03-06/04. BP is better. Hb stable. Completed remdesivir. ID , Cardiology and Critical care team on board 06/05. Bump in creatinine. I/O reviewed. Nephrology consulted. 06/06. Has slight improvement in renal function. Nephrology on board. On SBT today. Vitals stable. 06/07. Stable renal function. No need for HD as per nephrology. She is making urine. Plan for SBT. 06/08. Off sedation and very lethargic. Her BUN is going up - effect of steroids vs GI bleed. Her hemoglobin remains stable. Will check stool guaiac. Nephrology is following. WBC bumped to 16 today. 06/09: remains intubated, wbc trended up, Cr slightly trending down. cont TF, wean off vent as tolerated. 06/10: Cr trending down, cont to wean off vent as tolerated. 06/10; Cr much improved, cont iv fluid, tolerating tube feeding. stopped vac, iv cefepime for total 10 days. 06/11; creatinine 1.5 today, sodium level has normalized. Continue tube feeding, continue cefepime for 10 days. Continue to wean off as tolerated. Subjective Date of service: 06/11/20 Principal diagnosis: Ac hypoxemic resp failure; COVID-19; pneumonia; CHF; Pulm HTN; OHS; DM II Interval history: Patient seen and examined Vitals reviewed Patient remains intubated and sedated Tolerating tube feeding Discussed with RN at the bedside Objective - Exam Narrative Exam: General appearance: Present: obese, other (intubated on the vent) - EENT Eyes: Present: PERRL - Neck Neck: Present: supple - Cardiovascular Rhythm: regular Heart Sounds: Present: S1 & S2 - Extremities Extremities: No edema - Abdominal General gastrointestinal: soft, non-tender, non-distended - Neurologic Neurologic: other (Intubated) Skin: No rash warm and dry Musculoskeletal: No joint effusion or erythema Psychiatric: Unable to assess - Constitutional Vitals: Vital Signs - 12hr 06/11/20 06/11/20 06/11/20 20:00 20:30 21:00 Temperature 99.4 F Pulse Rate 88 82 83 Pulse Rate [ 88 From Monitor] Respiratory 16 14 15 Rate Blood Pressure 132/47 141/50 149/50 O2 Sat by Pulse 98 97 97 Oximetry 06/11/20 06/11/20 06/11/20 21:05 21:30 22:00 Temperature Pulse Rate 83 83 88 Pulse Rate [ From Monitor] Respiratory 14 14 Rate Blood Pressure 149/50 144/54 144/51 O2 Sat by Pulse 96 97 98 Oximetry 06/11/20 06/11/20 06/11/20 22:14 22:15 22:21 Temperature Pulse Rate 89 89 86 Pulse Rate [ From Monitor] Respiratory 13 Rate Blood Pressure 144/51 144/51 144/51 O2 Sat by Pulse 98 Oximetry 06/11/20 06/11/20 06/11/20 22:30 22:38 23:00 Temperature Pulse Rate 91 H 88 90 Pulse Rate [ From Monitor] Respiratory 13 15 14 Rate Blood Pressure 163/55 163/55 145/50 O2 Sat by Pulse 98 98 98 Oximetry 06/11/20 06/11/20 06/11/20 23:30 23:41 23:50 Temperature 99.2 F Pulse Rate 86 83 Pulse Rate [ From Monitor] Respiratory 15 Rate Blood Pressure 144/50 144/50 O2 Sat by Pulse 98 97 Oximetry 06/12/20 06/12/20 06/12/20 00:00 00:30 01:00 Temperature Pulse Rate 87 85 88 Pulse Rate [ 85 From Monitor] Respiratory 13 12 13 Rate Blood Pressure 144/51 142/62 154/55 O2 Sat by Pulse 99 98 99 Oximetry 06/12/20 06/12/20 06/12/20 01:30 02:00 02:30 Temperature Pulse Rate 84 83 80 Pulse Rate [ From Monitor] Respiratory 13 12 15 Rate Blood Pressure 143/53 141/53 139/49 O2 Sat by Pulse 98 98 97 Oximetry 06/12/20 06/12/20 06/12/20 03:00 03:28 03:30 Temperature 99.4 F Pulse Rate 82 82 Pulse Rate [ From Monitor] Respiratory 14 14 Rate Blood Pressure 140/55 145/53 O2 Sat by Pulse 98 98 Oximetry 06/12/20 06/12/20 06/12/20 04:00 04:30 05:00 Temperature Pulse Rate 94 H 81 88 Pulse Rate [ 93 H From Monitor] Respiratory 12 16 15 Rate Blood Pressure 143/51 140/50 147/56 O2 Sat by Pulse 99 98 98 Oximetry 06/12/20 06/12/20 06/12/20 05:30 05:46 05:59 Temperature Pulse Rate 82 85 86 Pulse Rate [ From Monitor] Respiratory 13 Rate Blood Pressure 148/57 143/51 148/57 O2 Sat by Pulse 98 96 Oximetry 06/12/20 06/12/20 06/12/20 06:00 06:30 07:25 Temperature Pulse Rate 84 87 82 Pulse Rate [ From Monitor] Respiratory 13 14 13 Rate Blood Pressure 157/58 157/58 142/55 O2 Sat by Pulse 98 99 100 Oximetry - Labs CBC & Chem 7: 06/12/20 02:46 06/12/20 02:46 Labs: Abnormal lab results 06/11/20 06/11/20 06/11/20 Range/Units 10:22 11:11 12:24 WBC (4.5-11.0) K/mm3 RBC (3.65-5.03) M/mm3 Hgb (10.1-14.3) gm/dl Hct (30.3-42.9) % RDW (13.2-15.2) % Lymph % (Auto) (13.4-35.0) % Dundy % (Auto) (0.0-7.3) % Lymph # (1.2-5.4) K/mm3 Dundy # (0.0-0.8) K/mm3 Seg Neutrophils % (40.0-70.0) % Seg Neutrophils # (1.8-7.7) K/mm3 Heparin Anti-Xa Level 0.26 L (0.3-0.7) U.I./ml ABG Hemoglobin 9.6 L (12.0-17.5) Potassium (3.6-5.0) mmol/L BUN (7-17) mg/dL Creatinine (0.6-1.2) mg/dL POC Glucose 119 H (70-105) Calcium (8.4-10.2) mg/dL 06/11/20 06/12/20 06/12/20 Range/Units 17:24 00:21 02:46 WBC 13.2 H (4.5-11.0) K/mm3 RBC 2.83 L (3.65-5.03) M/mm3 Hgb 8.3 L (10.1-14.3) gm/dl Hct 24.3 L (30.3-42.9) % RDW 16.6 H (13.2-15.2) % Lymph % (Auto) 6.2 L (13.4-35.0) % Dundy % (Auto) 9.5 H (0.0-7.3) % Lymph # 0.8 L (1.2-5.4) K/mm3 Dundy # 1.3 H (0.0-0.8) K/mm3 Seg Neutrophils % 81.9 H (40.0-70.0) % Seg Neutrophils # 10.9 H (1.8-7.7) K/mm3 Heparin Anti-Xa Level (0.3-0.7) U.I./ml ABG Hemoglobin (12.0-17.5) Potassium (3.6-5.0) mmol/L BUN (7-17) mg/dL Creatinine (0.6-1.2) mg/dL POC Glucose 126 H 117 H (70-105) Calcium (8.4-10.2) mg/dL 06/12/20 06/12/20 Range/Units 02:46 05:46 WBC (4.5-11.0) K/mm3 RBC (3.65-5.03) M/mm3 Hgb (10.1-14.3) gm/dl Hct (30.3-42.9) % RDW (13.2-15.2) % Lymph % (Auto) (13.4-35.0) % Dundy % (Auto) (0.0-7.3) % Lymph # (1.2-5.4) K/mm3 Dundy # (0.0-0.8) K/mm3 Seg Neutrophils % (40.0-70.0) % Seg Neutrophils # (1.8-7.7) K/mm3 Heparin Anti-Xa Level (0.3-0.7) U.I./ml ABG Hemoglobin (12.0-17.5) Potassium 3.5 L (3.6-5.0) mmol/L BUN 77 H (7-17) mg/dL Creatinine 1.3 H (0.6-1.2) mg/dL POC Glucose 132 H (70-105) Calcium 8.3 L (8.4-10.2) mg/dL
[2020-06-12] MEDS ORDERED: POTASSIUM CHLORIDE ER 20 MEQ TAB PO SCH (08:00)
[2020-06-12] MEDS: GLYCOPYRROLATE 2 MG TAB PO SCH ×3 (08:11→21:28)
[2020-06-12] MEDS: HEPARIN/ 0.45% NACL DRIP 25,000 UNIT/500 ML BAG IV SCH ×2 (08:12→21:53)
--- NOTE | 2020-06-12 09:25 | Progress Note ---
Assessment and Plan - Patient Problems (1) Acute kidney injury (AVANI) with acute tubular necrosis (ATN) Current Visit: Yes Status: Acute Plan to address problem: renal function remained stable with continued improvement in renal parameters. This still remains no acute indication for renal replacement therapy. Will monitor closely. Remains on Lasix 60 mg IV twice a day. We will monitor urine output with aforementioned diuretic regimen. (2) Acute hypoxemic respiratory failure Current Visit: Yes Status: Acute Plan to address problem: management per pulmonary team. Remains intubated at this time. Possible extubation today per nursing staff. (3) Volume overload Current Visit: Yes Status: Acute Plan to address problem: Responding well to lasix 60 mg IV BID, will plan to continue with current regimen. (4) Pneumonia due to COVID-19 virus Current Visit: Yes Status: Acute Plan to address problem: management per ID recommendations. (5) Hyperkalemia Current Visit: Yes Status: Acute Plan to address problem: in the setting of acute kidney injury. Current labs show stable potassium levels. We will be monitoring very closely. Subjective Date of service: 06/12/20 Principal diagnosis: Ac hypoxemic resp failure; COVID-19; pneumonia; CHF; Pulm HTN; OHS; DM II Interval history: No acute issues, remains non oliguric, minimal vent settings, plan for possible extubation today per nursing staff. Objective - Exam Narrative Exam: patient was not directly examined secondary to preservation of PPE - Vital Signs Vital signs: Vital Signs - 12hr 06/11/20 06/11/20 06/11/20 21:30 22:00 22:14 Temperature Pulse Rate 83 88 89 Pulse Rate [ From Monitor] Respiratory 14 14 Rate Blood Pressure 144/54 144/51 144/51 O2 Sat by Pulse 97 98 Oximetry 06/11/20 06/11/20 06/11/20 22:15 22:21 22:30 Temperature Pulse Rate 89 86 91 H Pulse Rate [ From Monitor] Respiratory 13 13 Rate Blood Pressure 144/51 144/51 163/55 O2 Sat by Pulse 98 98 Oximetry 06/11/20 06/11/20 06/11/20 22:38 23:00 23:30 Temperature Pulse Rate 88 90 86 Pulse Rate [ From Monitor] Respiratory 15 14 15 Rate Blood Pressure 163/55 145/50 144/50 O2 Sat by Pulse 98 98 98 Oximetry 06/11/20 06/11/20 06/12/20 23:41 23:50 00:00 Temperature 99.2 F Pulse Rate 83 87 Pulse Rate [ 85 From Monitor] Respiratory 13 Rate Blood Pressure 144/50 144/51 O2 Sat by Pulse 97 99 Oximetry 06/12/20 06/12/20 06/12/20 00:30 01:00 01:30 Temperature Pulse Rate 85 88 84 Pulse Rate [ From Monitor] Respiratory 12 13 13 Rate Blood Pressure 142/62 154/55 143/53 O2 Sat by Pulse 98 99 98 Oximetry 06/12/20 06/12/20 06/12/20 02:00 02:30 03:00 Temperature Pulse Rate 83 80 82 Pulse Rate [ From Monitor] Respiratory 12 15 14 Rate Blood Pressure 141/53 139/49 140/55 O2 Sat by Pulse 98 97 98 Oximetry 06/12/20 06/12/20 06/12/20 03:28 03:30 04:00 Temperature 99.4 F Pulse Rate 82 94 H Pulse Rate [ 93 H From Monitor] Respiratory 14 12 Rate Blood Pressure 145/53 143/51 O2 Sat by Pulse 98 99 Oximetry 06/12/20 06/12/20 06/12/20 04:30 05:00 05:30 Temperature Pulse Rate 81 88 82 Pulse Rate [ From Monitor] Respiratory 16 15 13 Rate Blood Pressure 140/50 147/56 148/57 O2 Sat by Pulse 98 98 98 Oximetry 06/12/20 06/12/20 06/12/20 05:46 05:59 06:00 Temperature Pulse Rate 85 86 84 Pulse Rate [ From Monitor] Respiratory 13 Rate Blood Pressure 143/51 148/57 157/58 O2 Sat by Pulse 96 98 Oximetry 06/12/20 06/12/20 06/12/20 06:30 07:00 07:25 Temperature 99 F Pulse Rate 87 85 82 Pulse Rate [ From Monitor] Respiratory 14 11 L 13 Rate Blood Pressure 157/58 142/55 142/55 O2 Sat by Pulse 99 100 100 Oximetry 06/12/20 06/12/20 06/12/20 07:30 08:00 08:30 Temperature Pulse Rate 82 93 H 83 Pulse Rate [ From Monitor] Respiratory 14 15 12 Rate Blood Pressure 145/54 158/63 136/52 O2 Sat by Pulse 100 99 100 Oximetry 06/12/20 09:00 Temperature Pulse Rate 83 Pulse Rate [ From Monitor] Respiratory 13 Rate Blood Pressure 133/46 O2 Sat by Pulse 100 Oximetry - Lab 06/12/20 02:46 06/12/20 02:46 Most recent lab results ABG pH 7.402 (7.320-7.450) 06/11/20 11:11 ABG pCO2 41.9 mm Hg 06/07/20 04:54 ABG pO2 71.4 mm Hg (80.0-90.0) L 06/07/20 04:54 ABG HCO3 20.9 mmol/L (20.0-26.0) 06/07/20 04:54 ABG O2 Saturation 94.3 % (95.0-99.0) L 06/07/20 04:54 Calcium 8.3 mg/dL (8.4-10.2) L 06/12/20 02:46 Urine Creatinine 82.2 mg/dL (0.1-20.0) H 06/06/20 04:00 Urine Sodium 20 mmol/L 06/06/20 04:00 Urine Total Protein 196 mg/dL (5-11.8) H 06/06/20 04:00 Medications & Allergies - Medications Allergies/Adverse Reactions: Allergies No Known Allergies Allergy (Verified 01/21/20 12:28) Home Medications: Home Medications Medication Instructions Recorded Confirmed Last Taken Type AtorvaSTATin [Lipitor] 20 mg PO QHS 05/12/20 05/29/20 Unknown History lisinopriL [Zestril TAB] 40 mg PO QDAY 05/12/20 05/29/20 Unknown History metFORMIN [Glucophage] 850 mg PO BID 05/12/20 05/29/20 Unknown History Acetaminophen [Acetaminophen TAB] 650 mg PO Q4H PRN tablet 05/13/20 05/29/20 Unknown Rx Dicyclomine [Bentyl] 20 mg PO BID #20 tablet 05/13/20 05/29/20 Unknown Rx Famotidine [Pepcid] 20 mg PO BID #30 tablet 05/13/20 05/29/20 Unknown Rx carvediloL [Coreg] 6.25 mg PO BID #60 05/13/20 05/29/20 Unknown Rx Active Medications: Generic Name Dose Route Start Last Admin Trade Name Freq PRN Reason Stop Dose Admin Acetaminophen 650 mg 06/09/20 10:57 06/09/20 20:28 Tylenol FEEDTUBE 650 mg Q6H PRN Administration Fever >101 Amlodipine Besylate 10 mg 06/02/20 11:00 06/11/20 09:36 Amlodipine PO 10 mg DAILY NELSON Administration Lipase/Protease/Amylase 1 each 05/29/20 13:39 Pancreazhoracio Lawson 10,500 Unit FEEDTUBE PRN PRN For Clogged Feeding Tube Carvedilol 12.5 mg 06/03/20 10:00 06/11/20 22:14 Coreg PO 12.5 mg BID NELSON Administration Clonidine HCl 0.1 mg 06/04/20 06:00 06/12/20 06:00 Catapres PO 0.1 mg Q8HR NELSON Administration Clonidine HCl 0.2 mg 06/04/20 06:00 06/12/20 05:59 Catapres PO 0.2 mg Q8HR NELSON Administration Fentanyl 50 mcg 05/29/20 14:21 06/09/20 20:27 Sublimaze IV 50 mcg Q10MIN PRN Administration ANALGESIA Furosemide 60 mg 06/09/20 10:00 06/12/20 06:00 Lasix IV 60 mg 0600,1800 NELSON Administration Glycopyrrolate 2 mg 06/09/20 14:00 06/12/20 08:11 Glycopyrrolate PO 2 mg TID NELSON Administration Hydralazine HCl 50 mg 06/03/20 09:00 06/12/20 06:00 Apresoline PO 50 mg Q8HR NELSON Administration Hydrophilic Ointment 1 applic 05/28/20 13:49 Vaseline Lip Therapy TP Q2HR PRN Dry Lips Heparin Sodium/Sodium Chloride 25,000 unit in 500 mls @ 30 mls/hr 05/29/20 15:00 06/12/20 08:12 Heparin/ 0.45% Nacl-25,000 Unit/500 Ml IV 1,850 units/hr TITR NELSON 37 mls/hr Administration Protocol 1,500 UNITS/HR Fentanyl Citrate 2,000 mcg in 100 mls @ 6.095 mls/hr 05/29/20 15:00 06/07/20 08:30 Fentanyl Drip Premix IV 0 mcg/kg/hr TITR NELSON 0 mls/hr Titration Protocol 1 MCG/KG/HR Nicardipine HCl 50 mg/ Sodium 250 mls @ 25 mls/hr 06/02/20 09:00 06/02/20 11:23 Chloride IV 0 mg/hr TITR NELSON 0 mls/hr Titration Protocol 5 MG/HR Cefepime HCl 2 gm in 100 mls @ 200 mls/hr 06/11/20 10:00 06/11/20 22:13 Cefepime/Ns 2 Gm/100 Ml IV 200 mls/hr Q12HR NELSON Administration Protocol Insulin Glargine 10 units 06/08/20 22:00 06/11/20 22:14 Lantus SUB-Q 10 units QHS NELSON Administration Insulin Human Lispro 0 unit 05/29/20 18:00 06/12/20 06:01 Humalog SUB-Q Not Given Q6H [facility] Protocol Labetalol HCl 20 mg 06/03/20 09:00 06/08/20 23:51 Labetalol IV 20 mg Q4H PRN Administration HYPERTENSION Lansoprazole 30 mg 06/05/20 22:00 06/11/20 22:14 Prevacid Solutab FEEDTUBE 30 mg BID NELSNO Administration Levetiracetam 500 mg 05/29/20 22:00 06/11/20 22:14 Keppra PO 500 mg BID NELSON Administration Metoclopramide HCl 10 mg 06/10/20 20:00 06/12/20 08:11 Reglan IV 10 mg Q6H NELSON Administration Multi-Ingred Cream/Lotion/Oil/Oint 1 applic 05/28/20 13:49 Artificial Tears Ophth Oint OU Q4HR PRN Dry Eye(s) Ondansetron HCl 4 mg 06/02/20 09:00 06/09/20 16:48 Zofran IV 4 mg Q8H PRN Administration Nausea And Vomiting Potassium Chloride 40 meq 06/12/20 09:30 Potassium Chloride FEEDTUBE 06/12/20 12:30 ONCE NELSON Quetiapine Fumarate 200 mg 06/08/20 22:00 06/11/20 22:15 Seroquel PO 200 mg QHS NELSON Administration Scopolamine 1 each 06/05/20 14:00 06/11/20 09:38 Transderm-Scop TD 1 each Q3D NELSON Administration Senna 17.6 mg 06/03/20 10:00 06/11/20 22:16 Senokot FEEDTUBE 17.6 mg BID NELSON Administration Simple Syrup 15 ml 05/29/20 13:39 Simple Syrup FEEDTUBE PRN PRN Hypoglycemia Simple Syrup 30 ml 05/29/20 13:39 Simple Syrup FEEDTUBE PRN PRN Hypoglycemia Sodium Bicarbonate 325 mg 05/29/20 13:39 Sodium Bicarbonate FEEDTUBE PRN PRN For Clogged Feeding Tube Sodium Bicarbonate 650 mg 06/06/20 10:00 06/11/20 22:13 Sodium Bicarbonate PO 650 mg BID NELSON Administration Sodium Chloride 10 ml 05/28/20 22:00 06/11/20 22:15 Sodium Chloride Flush Syringe 10 Ml IV 10 ml BID NELSON Administration Sodium Chloride 10 ml 05/28/20 19:08 Sodium Chloride Flush Syringe 10 Ml IV PRN PRN LINE FLUSH
[2020-06-12] MEDS ORDERED: POTASSIUM CHLORIDE 20 MEQ PACKET FEEDTUBE SCH (09:30)
[2020-06-12 09:42] LABS: ABG Base Excess 1.1 mmol/L (-2.0-3.0); ABG HCO3 25.9 mmol/L (20.0-26.0); ABG Methemoglobin 0.7 % (0.0-1.5); ABG PH 7.409 pH Units (7.350-7.450); ABG PO2 91.1 mm Hg (80.0-90.0)
[2020-06-12] MEDS: SODIUM BICARBONATE 650 MG TAB PO SCH ×2 (10:02→21:31)
[2020-06-12] MEDS: LANSOPRAZOLE 30 MG SOLUTAB FEEDTUBE SCH ×2 (10:02→21:34)
[2020-06-12] MEDS: amLODIPine 10 MG TAB PO SCH (10:02)
[2020-06-12] MEDS: carvediloL 12.5 MG TAB PO SCH ×2 (10:02→22:19)
[2020-06-12] MEDS: SENNOSIDES ORAL LIQD 8.8 MG/5 ML ORAL LIQD FEEDTUBE SCH ×2 (10:03→21:34)
[2020-06-12] MEDS: CEFEPIME/NS 2 GM/100 ML 2 GM/100 ML BAG IV SCH ×2 (10:03→21:21)
[2020-06-12] MEDS: levETIRAcetam 500 MG TAB PO SCH ×2 (10:04→22:19)
--- NOTE | 2020-06-12 12:54 | Progress Note ---
Assessment and Plan Acute hypoxemic respiratory failure orally intubated on MVS Severe COVID infection Multifocal pneumonia Morbid obesity Acute toxic metabolic encephalopathy AVANI secondary to COVID/vasomotor nephropathy Bilateral pulmonary edema. Bilateral pleural effusions. History of congestive heart failure. Morbid obesity. History of pulmonary hypertension. History of hypertension. Diabetes. Obesity hypoventilation syndrome. Elevated serum inflammatory markers to include D-dimers and LDH levels. AVANI Metabolic acidosis. Oropharyngeal dysphagia. -SAT and SBT today as tolerated -Hold OGT feedings for extubation to minimize risk of aspiration -Get weaning parameters, if acceptable liberate from MVS -Stop IVF -PRODUCTION LINE post extubation, PT/OT to evaluate and treat -CXR, ABG in am - VAP bundle addressed -Aspiration precautions, HOB >40 - continue lung protective strategies-ARDS. net -Permissive hypercapnic is acceptable - continue bronchodilators with pulmonary hygiene per RT - wean per pulmonary driven protocols otherwise - continue to avoid benzodiazepines, reduce the possibility of delirium - prn analgesia per CPOT score - sedation prn for target RASS 0 to -1 - Continue to wean supplemental oxygen for target O2 sats > 92% - conservative fluid management measures as tolerated by hemodynamics and renal function - Bronchodilators with pulmonary hygiene per RT -Monitor off antibiotics - Accuchecks with glycemic control per SSI (While critically ill target blood glucose of 140-180 mg/dL; avoid hypoglycemia) - Maintenance of sleep-wake cycle, avoid delirium - Avoid nephrotoxins, closely monitor renal function, dose all medications for renal function - Aspiration precautions, HOB >40 - Stress ulcer prophylaxis -Famotidine - VTE prophylaxis on adjust based on D-dimer levels - Mobility protocol, off loading and skin assessment for pressure ulcer prevention - Monitor hemodynamics closely - Supportive transfusions as indicated to keep HgB >7g/dL COVID SPECIFIC INTERVENTIONS -Airborne, contact isolation for COVID per facility protocols - s/p Remdesivir -IV steroids-Dexamethasone -Trend d-dimer,and other inflammatory markers per facility protocol -Convalescent plasma therapy per facility protocol -Continue all supportive care Discussed with the ICU team-RTRN, Life threatening condition- COVID 19 ARDS acute hypoxemic respiratory failure on MVS Mortality/Morbidity- High Complexity of medical decision making- High CONDITION: CRITICAL PROGNOSIS: GUARDED CODE STATUS: FULL CODE The high probability of a clinically significant, sudden or life-threatening deterioration of the [respiratory & neurology, renal ] system(s) required my full and direct attention, intervention and personal management. The aggregate critical care time was [32] minutes without overlap. Time includes spent on; [x] Data Review and interpretation [x] Patient assessment and monitoring of vital signs [x] Documentation [x] Medication orders and management Subjective Date of service: 06/12/20 Principal diagnosis: Ac hypoxemic resp failure; COVID-19; pneumonia; CHF; Pulm HTN; OHS; DM II Interval history: Patient is seen today for: Ac hypoxemic resp failure; Coronavirus-19 infection; pneumonia; Pulmonary edema; Bilateral pleural effusions; CHF; Morbid obesity; pulmonary hypertension; OHS; DM II Seen and examined at bedside; 24hour events reviewed; nursing and respiratory ca re staff consulted; no adverse overnight events reported to me; resting peacefully in bed; remains on MVS; no emesis or overt aspiration; no high grade fevers, tolerating tube feeds at goal Off Fentanyl for PSV trial Objective Vital Signs - 12hr 06/12/20 06/12/20 06/12/20 01:00 01:30 02:00 Temperature Pulse Rate 88 84 83 Pulse Rate [ From Monitor] Respiratory 13 13 12 Rate Blood Pressure 154/55 143/53 141/53 O2 Sat by Pulse 99 98 98 Oximetry 06/12/20 06/12/20 06/12/20 02:30 03:00 03:28 Temperature 99.4 F Pulse Rate 80 82 Pulse Rate [ From Monitor] Respiratory 15 14 Rate Blood Pressure 139/49 140/55 O2 Sat by Pulse 97 98 Oximetry 06/12/20 06/12/20 06/12/20 03:30 04:00 04:30 Temperature Pulse Rate 82 94 H 81 Pulse Rate [ 93 H From Monitor] Respiratory 14 12 16 Rate Blood Pressure 145/53 143/51 140/50 O2 Sat by Pulse 98 99 98 Oximetry 06/12/20 06/12/20 06/12/20 05:00 05:30 05:46 Temperature Pulse Rate 88 82 85 Pulse Rate [ From Monitor] Respiratory 15 13 Rate Blood Pressure 147/56 148/57 143/51 O2 Sat by Pulse 98 98 96 Oximetry 06/12/20 06/12/20 06/12/20 05:59 06:00 06:30 Temperature Pulse Rate 86 84 87 Pulse Rate [ From Monitor] Respiratory 13 14 Rate Blood Pressure 148/57 157/58 157/58 O2 Sat by Pulse 98 99 Oximetry 06/12/20 06/12/20 06/12/20 07:00 07:25 07:30 Temperature 99 F Pulse Rate 85 82 82 Pulse Rate [ From Monitor] Respiratory 11 L 13 14 Rate Blood Pressure 142/55 142/55 145/54 O2 Sat by Pulse 100 100 100 Oximetry 06/12/20 06/12/20 06/12/20 08:00 08:30 09:00 Temperature Pulse Rate 93 H 83 83 Pulse Rate [ 91 H From Monitor] Respiratory 15 12 13 Rate Blood Pressure 158/63 136/52 133/46 O2 Sat by Pulse 99 100 100 Oximetry 06/12/20 06/12/20 06/12/20 09:30 10:00 10:02 Temperature Pulse Rate 83 89 89 Pulse Rate [ From Monitor] Respiratory 15 15 Rate Blood Pressure 148/61 145/50 145/50 O2 Sat by Pulse 99 99 Oximetry 06/12/20 06/12/20 06/12/20 10:30 11:00 11:30 Temperature Pulse Rate 94 H 86 98 H Pulse Rate [ From Monitor] Respiratory 14 22 19 Rate Blood Pressure 147/54 147/54 128/47 O2 Sat by Pulse 99 100 96 Oximetry 06/12/20 06/12/20 06/12/20 12:00 12:12 12:15 Temperature 97.8 F Pulse Rate 98 H 98 H Pulse Rate [ From Monitor] Respiratory 24 Rate Blood Pressure 148/58 O2 Sat by Pulse 95 Oximetry Constitutional: no acute distress, other (elderly looking obese female on PSV ) Eyes: non-icteric ENT: oropharynx moist, other (ETT 23 cm AYAN) Neck: supple, no lymphadenopathy, no JVD, other (ETT 23 cm AYAN) Effort: mildly labored Ascultation: Bilateral: clear, diminished breath sounds, rhonchi Percussion: Bilateral: not dull Cardiovascular: regular rate and rhythm, other (S1,S2) Gastrointestinal: normoactive bowel sounds, soft, non-tender, non-distended Integumentary: normal Extremities: no cyanosis, no edema, pink and warm, pulses normal, no ischemia or petechiae Neurologic: non-focal exam (grossly), pupils equal and round, motor strength normal and Psychiatric: mood appropriate, affect normal CBC and BMP: 06/12/20 02:46 06/12/20 02:46 ABG, PT/INR, D-dimer: ABG ABG pH 7.409 pH Units (7.350-7.450) 06/12/20 09:20 POC ABG pCO2 37.4 mmHg (32.0-48.0) 06/11/20 11:11 ABG pCO2 42.0 mm Hg 06/12/20 09:20 POC ABG pO2 101.9 mmHg (83-108) 06/11/20 11:11 ABG pO2 91.1 mm Hg (80.0-90.0) H 06/12/20 09:20 ABG O2 Saturation 97.0 % (95.0-99.0) 06/12/20 09:20 PT/INR, D-dimer PT 14.2 Sec. (12.2-14.9) 05/29/20 15:10 INR 1.08 (0.87-1.13) 05/29/20 15:10 D-Dimer 414.52 ng/mlDDU (0-234) H 06/04/20 04:19 Abnormal lab findings: Abnormal Labs 05/28/20 05/28/20 05/28/20 13:29 13:47 13:47 WBC RBC Hgb Hct RDW 15.3 H Lymph % (Auto) [place] % (Auto) Lymph # [place] # Seg Neutrophils % Seg Neuts % (Manual) Lymphocytes % (Manual) Seg Neutrophils # Seg Neutrophils # Man Lymphocytes # (Manual) Monocytes # (Manual) D-Dimer Heparin Anti-Xa Level ABG pH ABG pO2 ABG HCO3 ABG O2 Saturation ABG Base Excess ABG Hemoglobin VBG pH Oxyhemoglobin Sodium Potassium 6.6 H* Chloride 109.2 H Carbon Dioxide 17 L BUN 29 H Creatinine 1.3 H Glucose 265 H POC Glucose 248 H Lactic Acid Calcium 8.1 L AST 63 H Alkaline Phosphatase Lactate Dehydrogenase Total Creatine Kinase 301 H CK-MB (CK-2) 4.3 H C-Reactive Protein Total Protein 5.4 L Albumin 2.6 L Urine WBC (Auto) Urine Creatinine Urine Total Protein Coronavirus (PCR) 05/28/20 05/28/20 05/28/20 13:47 13:47 14:46 WBC RBC Hgb Hct RDW Lymph % (Auto) [place] % (Auto) Lymph # [place] # Seg Neutrophils % Seg Neuts % (Manual) Lymphocytes % (Manual) Seg Neutrophils # Seg Neutrophils # Man Lymphocytes # (Manual) Monocytes # (Manual) D-Dimer Heparin Anti-Xa Level ABG pH ABG pO2 ABG HCO3 ABG O2 Saturation ABG Base Excess ABG Hemoglobin VBG pH 7.152 L* Oxyhemoglobin Sodium Potassium 7.2 H* Chloride Carbon Dioxide BUN Creatinine Glucose POC Glucose Lactic Acid 3.40 H* Calcium AST Alkaline Phosphatase Lactate Dehydrogenase Total Creatine Kinase CK-MB (CK-2) C-Reactive Protein Total Protein Albumin Urine WBC (Auto) Urine Creatinine Urine Total Protein Coronavirus (PCR) 05/28/20 05/28/20 05/28/20 15:33 15:33 15:51 WBC RBC Hgb Hct RDW Lymph % (Auto) [place] % (Auto) Lymph # [place] # Seg Neutrophils % Seg Neuts % (Manual) Lymphocytes % (Manual) Seg Neutrophils # Seg Neutrophils # Man Lymphocytes # (Manual) Monocytes # (Manual) D-Dimer 8780.43 H Heparin Anti-Xa Level ABG pH 7.284 L ABG pO2 273.0 H ABG HCO3 ABG O2 Saturation 99.4 H ABG Base Excess -6.1 L ABG Hemoglobin 17.2 H VBG pH Oxyhemoglobin Sodium Potassium Chloride Carbon Dioxide BUN Creatinine Glucose 152 H POC Glucose Lactic Acid Calcium AST Alkaline Phosphatase Lactate Dehydrogenase 365 H Total Creatine Kinase CK-MB (CK-2) C-Reactive Protein Total Protein Albumin Urine WBC (Auto) Urine Creatinine Urine Total Protein Coronavirus (PCR) 05/28/20 05/28/20 05/28/20 16:30 20:41 23:20 WBC RBC Hgb Hct RDW Lymph % (Auto) [place] % (Auto) Lymph # [place] # Seg Neutrophils % Seg Neuts % (Manual) Lymphocytes % (Manual) Seg Neutrophils # Seg Neutrophils # Man Lymphocytes # (Manual) Monocytes # (Manual) D-Dimer Heparin Anti-Xa Level ABG pH ABG pO2 ABG HCO3 ABG O2 Saturation ABG Base Excess ABG Hemoglobin VBG pH Oxyhemoglobin Sodium Potassium Chloride Carbon Dioxide BUN Creatinine Glucose POC Glucose 225 H 224 H Lactic Acid Calcium AST Alkaline Phosphatase Lactate Dehydrogenase Total Creatine Kinase CK-MB (CK-2) C-Reactive Protein Total Protein Albumin Urine WBC (Auto) 17.0 H Urine Creatinine Urine Total Protein Coronavirus (PCR) 05/28/20 05/29/20 05/29/20 Unknown 04:35 04:43 WBC RBC 3.48 L Hgb 9.8 L Hct 29.4 L RDW 16.0 H Lymph % (Auto) 7.4 L [place] % (Auto) Lymph # 0.7 L [place] # Seg Neutrophils % 89.1 H Seg Neuts % (Manual) Lymphocytes % (Manual) Seg Neutrophils # 8.1 H Seg Neutrophils # Man Lymphocytes # (Manual) Monocytes # (Manual) D-Dimer Heparin Anti-Xa Level ABG pH ABG pO2 ABG HCO3 19.3 L ABG O2 Saturation ABG Base Excess -4.5 L ABG Hemoglobin 9.7 L VBG pH Oxyhemoglobin Sodium Potassium Chloride Carbon Dioxide BUN Creatinine Glucose POC Glucose Lactic Acid Calcium AST Alkaline Phosphatase Lactate Dehydrogenase Total Creatine Kinase CK-MB (CK-2) C-Reactive Protein Total Protein Albumin Urine WBC (Auto) Urine Creatinine Urine Total Protein Coronavirus (PCR) Positive A 05/29/20 05/29/20 05/29/20 04:43 15:10 17:17 WBC RBC Hgb 9.3 L Hct 28.7 L RDW Lymph % (Auto) [place] % (Auto) Lymph # [place] # Seg Neutrophils % Seg Neuts % (Manual) Lymphocytes % (Manual) Seg Neutrophils # Seg Neutrophils # Man Lymphocytes # (Manual) Monocytes # (Manual) D-Dimer Heparin Anti-Xa Level ABG pH ABG pO2 ABG HCO3 ABG O2 Saturation ABG Base Excess ABG Hemoglobin VBG pH Oxyhemoglobin Sodium Potassium Chloride 110.2 H Carbon Dioxide 18 L BUN 32 H Creatinine 1.4 H Glucose 180 H POC Glucose 147 H Lactic Acid Calcium AST Alkaline Phosphatase Lactate Dehydrogenase Total Creatine Kinase CK-MB (CK-2) C-Reactive Protein Total Protein Albumin Urine WBC (Auto) Urine Creatinine Urine Total Protein Coronavirus (PCR) 05/30/20 05/30/20 05/30/20 00:08 00:12 04:15 WBC RBC Hgb Hct RDW Lymph % (Auto) [place] % (Auto) Lymph # [place] # Seg Neutrophils % Seg Neuts % (Manual) Lymphocytes % (Manual) Seg Neutrophils # Seg Neutrophils # Man Lymphocytes # (Manual) Monocytes # (Manual) D-Dimer Heparin Anti-Xa Level 0.71 H ABG pH 7.460 H ABG pO2 106.0 H ABG HCO3 18.9 L ABG O2 Saturation ABG Base Excess -4.4 L ABG Hemoglobin 6.8 L VBG pH Oxyhemoglobin Sodium Potassium Chloride Carbon Dioxide BUN Creatinine Glucose POC Glucose 195 H Lactic Acid Calcium AST Alkaline Phosphatase Lactate Dehydrogenase Total Creatine Kinase CK-MB (CK-2) C-Reactive Protein Total Protein Albumin Urine WBC (Auto) Urine Creatinine Urine Total Protein Coronavirus (PCR) 05/30/20 05/30/20 05/30/20 06:07 08:37 12:33 WBC RBC Hgb Hct RDW Lymph % (Auto) [place] % (Auto) Lymph # [place] # Seg Neutrophils % Seg Neuts % (Manual) Lymphocytes % (Manual) Seg Neutrophils # Seg Neutrophils # Man Lymphocytes # (Manual) Monocytes # (Manual) D-Dimer Heparin Anti-Xa Level 0.85 H ABG pH ABG pO2 ABG HCO3 ABG O2 Saturation ABG Base Excess ABG Hemoglobin VBG pH Oxyhemoglobin Sodium Potassium Chloride Carbon Dioxide BUN Creatinine Glucose POC Glucose 182 H 187 H Lactic Acid Calcium AST Alkaline Phosphatase Lactate Dehydrogenase Total Creatine Kinase CK-MB (CK-2) C-Reactive Protein Total Protein Albumin Urine WBC (Auto) Urine Creatinine Urine Total Protein Coronavirus (PCR) 05/30/20 05/30/20 05/30/20 15:58 17:57 23:36 WBC RBC Hgb Hct RDW Lymph % (Auto) [place] % (Auto) Lymph # [place] # Seg Neutrophils % Seg Neuts % (Manual) Lymphocytes % (Manual) Seg Neutrophils # Seg Neutrophils # Man Lymphocytes # (Manual) Monocytes # (Manual) D-Dimer Heparin Anti-Xa Level 1.03 H ABG pH ABG pO2 ABG HCO3 ABG O2 Saturation ABG Base Excess ABG Hemoglobin VBG pH Oxyhemoglobin Sodium Potassium Chloride Carbon Dioxide BUN Creatinine Glucose POC Glucose 208 H 185 H Lactic Acid Calcium AST Alkaline Phosphatase Lactate Dehydrogenase Total Creatine Kinase CK-MB (CK-2) C-Reactive Protein Total Protein Albumin Urine WBC (Auto) Urine Creatinine Urine Total Protein Coronavirus (PCR) 05/31/20 05/31/20 05/31/20 02:16 03:55 06:16 WBC RBC Hgb 9.2 L Hct 27.5 L RDW Lymph % (Auto) [place] % (Auto) Lymph # [place] # Seg Neutrophils % Seg Neuts % (Manual) Lymphocytes % (Manual) Seg Neutrophils # Seg Neutrophils # Man Lymphocytes # (Manual) Monocytes # (Manual) D-Dimer Heparin Anti-Xa Level ABG pH ABG pO2 94.7 H ABG HCO3 18.6 L ABG O2 Saturation ABG Base Excess -5.5 L ABG Hemoglobin 7.9 L VBG pH Oxyhemoglobin Sodium Potassium Chloride Carbon Dioxide BUN Creatinine Glucose POC Glucose 160 H Lactic Acid Calcium AST Alkaline Phosphatase Lactate Dehydrogenase Total Creatine Kinase CK-MB (CK-2) C-Reactive Protein Total Protein Albumin Urine WBC (Auto) Urine Creatinine Urine Total Protein Coronavirus (PCR) 05/31/20 05/31/20 05/31/20 12:20 13:03 18:13 WBC RBC Hgb Hct RDW Lymph % (Auto) [place] % (Auto) Lymph # [place] # Seg Neutrophils % Seg Neuts % (Manual) Lymphocytes % (Manual) Seg Neutrophils # Seg Neutrophils # Man Lymphocytes # (Manual) Monocytes # (Manual) D-Dimer Heparin Anti-Xa Level ABG pH ABG pO2 ABG HCO3 ABG O2 Saturation ABG Base Excess ABG Hemoglobin VBG pH Oxyhemoglobin Sodium Potassium Chloride Carbon Dioxide 18 L BUN 48 H Creatinine 1.6 H Glucose 115 H POC Glucose 128 H 159 H Lactic Acid Calcium 8.3 L AST Alkaline Phosphatase Lactate Dehydrogenase Total Creatine Kinase CK-MB (CK-2) C-Reactive Protein Total Protein 5.4 L Albumin 2.4 L Urine WBC (Auto) Urine Creatinine Urine Total Protein Coronavirus (PCR) 05/31/20 06/01/20 06/01/20 23:51 04:00 05:48 WBC RBC Hgb Hct RDW Lymph % (Auto) [place] % (Auto) Lymph # [place] # Seg Neutrophils % Seg Neuts % (Manual) Lymphocytes % (Manual) Seg Neutrophils # Seg Neutrophils # Man Lymphocytes # (Manual) Monocytes # (Manual) D-Dimer Heparin Anti-Xa Level ABG pH ABG pO2 109.8 H ABG HCO3 18.8 L ABG O2 Saturation ABG Base Excess -5.9 L ABG Hemoglobin 7.8 L VBG pH Oxyhemoglobin Sodium Potassium Chloride Carbon Dioxide BUN Creatinine Glucose POC Glucose 171 H 133 H Lactic Acid Calcium AST Alkaline Phosphatase Lactate Dehydrogenase Total Creatine Kinase CK-MB (CK-2) C-Reactive Protein Total Protein Albumin Urine WBC (Auto) Urine Creatinine Urine Total Protein Coronavirus (PCR) 06/01/20 06/01/20 06/02/20 12:28 17:29 00:08 WBC RBC Hgb Hct RDW Lymph % (Auto) [place] % (Auto) Lymph # [place] # Seg Neutrophils % Seg Neuts % (Manual) Lymphocytes % (Manual) Seg Neutrophils # Seg Neutrophils # Man Lymphocytes # (Manual) Monocytes # (Manual) D-Dimer Heparin Anti-Xa Level ABG pH ABG pO2 ABG HCO3 ABG O2 Saturation ABG Base Excess ABG Hemoglobin VBG pH Oxyhemoglobin Sodium Potassium Chloride Carbon Dioxide BUN Creatinine Glucose POC Glucose 199 H 209 H 162 H Lactic Acid Calcium AST Alkaline Phosphatase Lactate Dehydrogenase Total Creatine Kinase CK-MB (CK-2) C-Reactive Protein Total Protein Albumin Urine WBC (Auto) Urine Creatinine Urine Total Protein Coronavirus (PCR) 06/02/20 06/02/20 06/02/20 04:20 04:20 04:44 WBC RBC Hgb 10.0 L Hct RDW Lymph % (Auto) [place] % (Auto) Lymph # [place] # Seg Neutrophils % Seg Neuts % (Manual) Lymphocytes % (Manual) Seg Neutrophils # Seg Neutrophils # Man Lymphocytes # (Manual) Monocytes # (Manual) D-Dimer Heparin Anti-Xa Level 0.10 L ABG pH ABG pO2 150.6 H ABG HCO3 ABG O2 Saturation ABG Base Excess -4.1 L ABG Hemoglobin 11.8 L VBG pH Oxyhemoglobin Sodium Potassium Chloride Carbon Dioxide BUN Creatinine Glucose POC Glucose Lactic Acid Calcium AST Alkaline Phosphatase Lactate Dehydrogenase Total Creatine Kinase CK-MB (CK-2) C-Reactive Protein Total Protein Albumin Urine WBC (Auto) Urine Creatinine Urine Total Protein Coronavirus (PCR) 06/02/20 06/02/20 06/02/20 05:53 12:04 13:49 WBC RBC Hgb Hct RDW Lymph % (Auto) [place] % (Auto) Lymph # [place] # Seg Neutrophils % Seg Neuts % (Manual) Lymphocytes % (Manual) Seg Neutrophils # Seg Neutrophils # Man Lymphocytes # (Manual) Monocytes # (Manual) D-Dimer Heparin Anti-Xa Level 0.28 L ABG pH ABG pO2 ABG HCO3 ABG O2 Saturation ABG Base Excess ABG Hemoglobin VBG pH Oxyhemoglobin Sodium Potassium Chloride Carbon Dioxide BUN Creatinine Glucose POC Glucose 149 H 220 H Lactic Acid Calcium AST Alkaline Phosphatase Lactate Dehydrogenase Total Creatine Kinase CK-MB (CK-2) C-Reactive Protein Total Protein Albumin Urine WBC (Auto) Urine Creatinine Urine Total Protein Coronavirus (PCR) 06/02/20 06/02/20 06/03/20 13:49 18:31 00:42 WBC RBC Hgb Hct RDW Lymph % (Auto) [place] % (Auto) Lymph # [place] # Seg Neutrophils % Seg Neuts % (Manual) Lymphocytes % (Manual) Seg Neutrophils # Seg Neutrophils # Man Lymphocytes # (Manual) Monocytes # (Manual) D-Dimer 769.68 H Heparin Anti-Xa Level ABG pH ABG pO2 ABG HCO3 ABG O2 Saturation ABG Base Excess ABG Hemoglobin VBG pH Oxyhemoglobin Sodium Potassium Chloride Carbon Dioxide BUN Creatinine Glucose POC Glucose 225 H 212 H Lactic Acid Calcium AST Alkaline Phosphatase Lactate Dehydrogenase Total Creatine Kinase CK-MB (CK-2) C-Reactive Protein Total Protein Albumin Urine WBC (Auto) Urine Creatinine Urine Total Protein Coronavirus (PCR) 06/03/20 06/03/20 06/03/20 05:16 05:16 05:25 WBC 11.4 H RBC Hgb Hct RDW 16.4 H Lymph % (Auto) [place] % (Auto) Lymph # [place] # Seg Neutrophils % Seg Neuts % (Manual) Lymphocytes % (Manual) Seg Neutrophils # Seg Neutrophils # Man Lymphocytes # (Manual) Monocytes # (Manual) D-Dimer Heparin Anti-Xa Level ABG pH ABG pO2 160.9 H ABG HCO3 19.4 L ABG O2 Saturation ABG Base Excess -4.9 L ABG Hemoglobin 7.0 L VBG pH Oxyhemoglobin Sodium Potassium Chloride Carbon Dioxide 18 L BUN 65 H Creatinine 2.0 H Glucose 175 H POC Glucose Lactic Acid Calcium 8.0 L AST Alkaline Phosphatase Lactate Dehydrogenase Total Creatine Kinase CK-MB (CK-2) C-Reactive Protein Total Protein 5.5 L Albumin 2.2 L Urine WBC (Auto) Urine Creatinine Urine Total Protein Coronavirus (PCR) 06/03/20 06/03/20 06/03/20 06:07 11:58 18:24 WBC RBC Hgb Hct RDW Lymph % (Auto) [place] % (Auto) Lymph # [place] # Seg Neutrophils % Seg Neuts % (Manual) Lymphocytes % (Manual) Seg Neutrophils # Seg Neutrophils # Man Lymphocytes # (Manual) Monocytes # (Manual) D-Dimer Heparin Anti-Xa Level ABG pH ABG pO2 ABG HCO3 ABG O2 Saturation ABG Base Excess ABG Hemoglobin VBG pH Oxyhemoglobin Sodium Potassium Chloride Carbon Dioxide BUN Creatinine Glucose POC Glucose 177 H 163 H 211 H Lactic Acid Calcium AST Alkaline Phosphatase Lactate Dehydrogenase Total Creatine Kinase CK-MB (CK-2) C-Reactive Protein Total Protein Albumin Urine WBC (Auto) Urine Creatinine Urine Total Protein Coronavirus (PCR) 06/03/20 06/03/20 06/04/20 21:50 Unknown 00:26 WBC RBC Hgb Hct RDW Lymph % (Auto) [place] % (Auto) Lymph # [place] # Seg Neutrophils % Seg Neuts % (Manual) Lymphocytes % (Manual) Seg Neutrophils # Seg Neutrophils # Man Lymphocytes # (Manual) Monocytes # (Manual) D-Dimer Heparin Anti-Xa Level ABG pH ABG pO2 ABG HCO3 ABG O2 Saturation ABG Base Excess ABG Hemoglobin VBG pH Oxyhemoglobin Sodium 135 L Potassium Chloride Carbon Dioxide 18 L BUN Creatinine Glucose POC Glucose 241 H Lactic Acid Calcium AST Alkaline Phosphatase Lactate Dehydrogenase Total Creatine Kinase CK-MB (CK-2) C-Reactive Protein Total Protein Albumin Urine WBC (Auto) 11.0 H Urine Creatinine Urine Total Protein Coronavirus (PCR) 06/04/20 06/04/20 06/04/20 03:35 04:19 04:19 WBC RBC 3.15 L Hgb 8.9 L Hct 26.8 L D RDW 15.9 H Lymph % (Auto) 6.0 L [place] % (Auto) Lymph # 0.6 L [place] # Seg Neutrophils % 86.6 H Seg Neuts % (Manual) Lymphocytes % (Manual) Seg Neutrophils # 9.1 H Seg Neutrophils # Man Lymphocytes # (Manual) Monocytes # (Manual) D-Dimer Heparin Anti-Xa Level ABG pH 7.331 L ABG pO2 ABG HCO3 ABG O2 Saturation ABG Base Excess -4.7 L ABG Hemoglobin 11.0 L VBG pH Oxyhemoglobin 93.9 L Sodium 136 L Potassium Chloride Carbon Dioxide 20 L BUN 73 H Creatinine 2.0 H Glucose 192 H POC Glucose Lactic Acid Calcium 8.0 L AST Alkaline Phosphatase Lactate Dehydrogenase 271 H Total Creatine Kinase CK-MB (CK-2) C-Reactive Protein 2.20 H Total Protein 5.0 L Albumin 2.0 L Urine WBC (Auto) Urine Creatinine Urine Total Protein Coronavirus (PCR) 06/04/20 06/04/20 06/04/20 04:19 05:51 11:48 WBC RBC Hgb Hct RDW Lymph % (Auto) [place] % (Auto) Lymph # [place] # Seg Neutrophils % Seg Neuts % (Manual) Lymphocytes % (Manual) Seg Neutrophils # Seg Neutrophils # Man Lymphocytes # (Manual) Monocytes # (Manual) D-Dimer 414.52 H Heparin Anti-Xa Level ABG pH ABG pO2 ABG HCO3 ABG O2 Saturation ABG Base Excess ABG Hemoglobin VBG pH Oxyhemoglobin Sodium Potassium Chloride Carbon Dioxide BUN Creatinine Glucose POC Glucose 179 H 213 H Lactic Acid Calcium AST Alkaline Phosphatase Lactate Dehydrogenase Total Creatine Kinase CK-MB (CK-2) C-Reactive Protein Total Protein Albumin Urine WBC (Auto) Urine Creatinine Urine Total Protein Coronavirus (PCR) 06/04/20 06/05/20 06/05/20 18:25 00:16 05:00 WBC RBC Hgb Hct RDW Lymph % (Auto) [place] % (Auto) Lymph # [place] # Seg Neutrophils % Seg Neuts % (Manual) Lymphocytes % (Manual) Seg Neutrophils # Seg Neutrophils # Man Lymphocytes # (Manual) Monocytes # (Manual) D-Dimer Heparin Anti-Xa Level ABG pH 7.286 L ABG pO2 96.2 H ABG HCO3 ABG O2 Saturation ABG Base Excess -6.3 L ABG Hemoglobin 8.8 L VBG pH Oxyhemoglobin 94.8 L Sodium Potassium Chloride Carbon Dioxide BUN Creatinine Glucose POC Glucose 238 H 183 H Lactic Acid Calcium AST Alkaline Phosphatase Lactate Dehydrogenase Total Creatine Kinase CK-MB (CK-2) C-Reactive Protein Total Protein Albumin Urine WBC (Auto) Urine Creatinine Urine Total Protein Coronavirus (PCR) 06/05/20 06/05/20 06/05/20 05:39 07:25 07:25 WBC RBC 2.97 L Hgb 8.7 L Hct 25.7 L RDW 16.0 H Lymph % (Auto) 8.8 L [place] % (Auto) 13.3 H Lymph # 0.8 L [place] # 1.3 H Seg Neutrophils % 77.3 H Seg Neuts % (Manual) Lymphocytes % (Manual) Seg Neutrophils # Seg Neutrophils # Man Lymphocytes # (Manual) Monocytes # (Manual) D-Dimer Heparin Anti-Xa Level ABG pH ABG pO2 ABG HCO3 ABG O2 Saturation ABG Base Excess ABG Hemoglobin VBG pH Oxyhemoglobin Sodium 133 L Potassium Chloride Carbon Dioxide 17 L BUN 89 H Creatinine 2.8 H Glucose 176 H POC Glucose 149 H Lactic Acid Calcium 7.7 L AST Alkaline Phosphatase Lactate Dehydrogenase Total Creatine Kinase CK-MB (CK-2) C-Reactive Protein Total Protein 4.2 L Albumin 1.9 L Urine WBC (Auto) Urine Creatinine Urine Total Protein Coronavirus (PCR) 06/05/20 06/05/20 06/05/20 07:25 12:05 15:41 WBC RBC Hgb Hct RDW Lymph % (Auto) [place] % (Auto) Lymph # [place] # Seg Neutrophils % Seg Neuts % (Manual) Lymphocytes % (Manual) Seg Neutrophils # Seg Neutrophils # Man Lymphocytes # (Manual) Monocytes # (Manual) D-Dimer Heparin Anti-Xa Level 0.76 H 0.81 H ABG pH ABG pO2 ABG HCO3 ABG O2 Saturation ABG Base Excess ABG Hemoglobin VBG pH Oxyhemoglobin Sodium Potassium Chloride Carbon Dioxide BUN Creatinine Glucose POC Glucose 198 H Lactic Acid Calcium AST Alkaline Phosphatase Lactate Dehydrogenase Total Creatine Kinase CK-MB (CK-2) C-Reactive Protein Total Protein Albumin Urine WBC (Auto) Urine Creatinine Urine Total Protein Coronavirus (PCR) 06/05/20 06/05/20 06/06/20 18:08 23:25 04:00 WBC RBC Hgb Hct RDW Lymph % (Auto) [place] % (Auto) Lymph # [place] # Seg Neutrophils % Seg Neuts % (Manual) Lymphocytes % (Manual) Seg Neutrophils # Seg Neutrophils # Man Lymphocytes # (Manual) Monocytes # (Manual) D-Dimer Heparin Anti-Xa Level ABG pH ABG pO2 ABG HCO3 ABG O2 Saturation ABG Base Excess ABG Hemoglobin VBG pH Oxyhemoglobin Sodium Potassium Chloride Carbon Dioxide BUN Creatinine Glucose POC Glucose 223 H 169 H Lactic Acid Calcium AST Alkaline Phosphatase Lactate Dehydrogenase Total Creatine Kinase CK-MB (CK-2) C-Reactive Protein Total Protein Albumin Urine WBC (Auto) 15.0 H Urine Creatinine Urine Total Protein Coronavirus (PCR) 06/06/20 06/06/20 06/06/20 04:00 05:33 05:38 WBC RBC 2.97 L Hgb 8.7 L Hct 26.8 L RDW 16.8 H Lymph % (Auto) [place] % (Auto) Lymph # [place] # Seg Neutrophils % Seg Neuts % (Manual) Lymphocytes % (Manual) Seg Neutrophils # Seg Neutrophils # Man Lymphocytes # (Manual) Monocytes # (Manual) D-Dimer Heparin Anti-Xa Level ABG pH ABG pO2 ABG HCO3 ABG O2 Saturation ABG Base Excess ABG Hemoglobin VBG pH Oxyhemoglobin Sodium Potassium Chloride Carbon Dioxide BUN Creatinine Glucose POC Glucose 186 H Lactic Acid Calcium AST Alkaline Phosphatase Lactate Dehydrogenase Total Creatine Kinase CK-MB (CK-2) C-Reactive Protein Total Protein Albumin Urine WBC (Auto) Urine Creatinine 82.2 H Urine Total Protein 196 H Coronavirus (PCR) 06/06/20 06/06/20 06/06/20 05:38 12:25 17:03 WBC RBC Hgb Hct RDW Lymph % (Auto) [place] % (Auto) Lymph # [place] # Seg Neutrophils % Seg Neuts % (Manual) Lymphocytes % (Manual) Seg Neutrophils # Seg Neutrophils # Man Lymphocytes # (Manual) Monocytes # (Manual) D-Dimer Heparin Anti-Xa Level ABG pH ABG pO2 ABG HCO3 ABG O2 Saturation ABG Base Excess ABG Hemoglobin VBG pH Oxyhemoglobin Sodium 134 L Potassium 5.2 H Chloride Carbon Dioxide 18 L BUN 97 H Creatinine 2.5 H Glucose 193 H POC Glucose 239 H 252 H Lactic Acid Calcium 7.5 L AST Alkaline Phosphatase Lactate Dehydrogenase Total Creatine Kinase CK-MB (CK-2) C-Reactive Protein Total Protein 4.1 L Albumin 1.9 L Urine WBC (Auto) Urine Creatinine Urine Total Protein Coronavirus (PCR) 06/07/20 06/07/20 06/07/20 00:16 01:49 04:00 WBC RBC 2.91 L Hgb 8.4 L Hct 25.0 L RDW 16.1 H Lymph % (Auto) 5.7 L [place] % (Auto) 10.5 H Lymph # 0.6 L [place] # 1.1 H Seg Neutrophils % 83.6 H Seg Neuts % (Manual) Lymphocytes % (Manual) Seg Neutrophils # 9.1 H Seg Neutrophils # Man Lymphocytes # (Manual) Monocytes # (Manual) D-Dimer Heparin Anti-Xa Level 0.26 L ABG pH ABG pO2 ABG HCO3 ABG O2 Saturation ABG Base Excess ABG Hemoglobin VBG pH Oxyhemoglobin Sodium Potassium Chloride Carbon Dioxide BUN Creatinine Glucose POC Glucose 173 H Lactic Acid Calcium AST Alkaline Phosphatase Lactate Dehydrogenase Total Creatine Kinase CK-MB (CK-2) C-Reactive Protein Total Protein Albumin Urine WBC (Auto) Urine Creatinine Urine Total Protein Coronavirus (PCR) 06/07/20 06/07/20 06/07/20 04:00 04:54 05:51 WBC RBC Hgb Hct RDW Lymph % (Auto) [place] % (Auto) Lymph # [place] # Seg Neutrophils % Seg Neuts % (Manual) Lymphocytes % (Manual) Seg Neutrophils # Seg Neutrophils # Man Lymphocytes # (Manual) Monocytes # (Manual) D-Dimer Heparin Anti-Xa Level ABG pH 7.317 L ABG pO2 71.4 L ABG HCO3 ABG O2 Saturation 94.3 L ABG Base Excess -4.8 L ABG Hemoglobin 7.1 L VBG pH Oxyhemoglobin 92.2 L Sodium 133 L Potassium Chloride Carbon Dioxide 18 L BUN 100 H Creatinine 2.5 H Glucose 158 H POC Glucose 168 H Lactic Acid Calcium 7.6 L AST Alkaline Phosphatase Lactate Dehydrogenase Total Creatine Kinase CK-MB (CK-2) C-Reactive Protein Total Protein 4.7 L Albumin 2.0 L Urine WBC (Auto) Urine Creatinine Urine Total Protein Coronavirus (PCR) 06/07/20 06/07/20 06/07/20 12:03 17:17 20:10 WBC RBC Hgb Hct RDW Lymph % (Auto) [place] % (Auto) Lymph # [place] # Seg Neutrophils % Seg Neuts % (Manual) Lymphocytes % (Manual) Seg Neutrophils # Seg Neutrophils # Man Lymphocytes # (Manual) Monocytes # (Manual) D-Dimer Heparin Anti-Xa Level 0.17 L ABG pH ABG pO2 ABG HCO3 ABG O2 Saturation ABG Base Excess ABG Hemoglobin VBG pH Oxyhemoglobin Sodium Potassium Chloride Carbon Dioxide BUN Creatinine Glucose POC Glucose 276 H 281 H Lactic Acid Calcium AST Alkaline Phosphatase Lactate Dehydrogenase Total Creatine Kinase CK-MB (CK-2) C-Reactive Protein Total Protein Albumin Urine WBC (Auto) Urine Creatinine Urine Total Protein Coronavirus (PCR) 06/08/20 06/08/20 06/08/20 00:02 04:47 04:47 WBC 16.4 H RBC 3.07 L Hgb 8.6 L Hct 26.5 L RDW 16.3 H Lymph % (Auto) [place] % (Auto) Lymph # [place] # Seg Neutrophils % Seg Neuts % (Manual) 90.0 H Lymphocytes % (Manual) 3.0 L Seg Neutrophils # Seg Neutrophils # Man 14.8 H Lymphocytes # (Manual) 0.5 L Monocytes # (Manual) 1.1 H D-Dimer Heparin Anti-Xa Level ABG pH ABG pO2 ABG HCO3 ABG O2 Saturation ABG Base Excess ABG Hemoglobin VBG pH Oxyhemoglobin Sodium 129 L Potassium Chloride 95.6 L Carbon Dioxide 17 L BUN 106 H Creatinine 2.5 H Glucose 213 H POC Glucose 242 H Lactic Acid Calcium 7.6 L AST Alkaline Phosphatase Lactate Dehydrogenase Total Creatine Kinase CK-MB (CK-2) C-Reactive Protein Total Protein 5.0 L Albumin 2.1 L Urine WBC (Auto) Urine Creatinine Urine Total Protein Coronavirus (PCR) 06/08/20 06/08/20 06/08/20 05:40 11:55 17:54 WBC RBC Hgb Hct RDW Lymph % (Auto) [place] % (Auto) Lymph # [place] # Seg Neutrophils % Seg Neuts % (Manual) Lymphocytes % (Manual) Seg Neutrophils # Seg Neutrophils # Man Lymphocytes # (Manual) Monocytes # (Manual) D-Dimer Heparin Anti-Xa Level ABG pH ABG pO2 ABG HCO3 ABG O2 Saturation ABG Base Excess ABG Hemoglobin VBG pH Oxyhemoglobin Sodium Potassium Chloride Carbon Dioxide BUN Creatinine Glucose POC Glucose 221 H 218 H 163 H Lactic Acid Calcium AST Alkaline Phosphatase Lactate Dehydrogenase Total Creatine Kinase CK-MB (CK-2) C-Reactive Protein Total Protein Albumin Urine WBC (Auto) Urine Creatinine Urine Total Protein Coronavirus (PCR) 06/08/20 06/09/20 06/09/20 22:01 00:09 05:16 WBC 19.0 H RBC 3.35 L Hgb 9.2 L Hct 28.5 L RDW 16.3 H Lymph % (Auto) [place] % (Auto) Lymph # [place] # Seg Neutrophils % Seg Neuts % (Manual) 85.0 H Lymphocytes % (Manual) 7.0 L Seg Neutrophils # Seg Neutrophils # Man 16.2 H Lymphocytes # (Manual) Monocytes # (Manual) 1.3 H D-Dimer Heparin Anti-Xa Level ABG pH ABG pO2 ABG HCO3 ABG O2 Saturation ABG Base Excess ABG Hemoglobin VBG pH Oxyhemoglobin Sodium Potassium Chloride Carbon Dioxide BUN Creatinine Glucose POC Glucose 182 H 150 H Lactic Acid Calcium AST Alkaline Phosphatase Lactate Dehydrogenase Total Creatine Kinase CK-MB (CK-2) C-Reactive Protein Total Protein Albumin Urine WBC (Auto) Urine Creatinine Urine Total Protein Coronavirus (PCR) 06/09/20 06/09/20 06/09/20 05:16 05:24 11:29 WBC RBC Hgb Hct RDW Lymph % (Auto) [place] % (Auto) Lymph # [place] # Seg Neutrophils % Seg Neuts % (Manual) Lymphocytes % (Manual) Seg Neutrophils # Seg Neutrophils # Man Lymphocytes # (Manual) Monocytes # (Manual) D-Dimer Heparin Anti-Xa Level ABG pH ABG pO2 ABG HCO3 ABG O2 Saturation ABG Base Excess ABG Hemoglobin VBG pH Oxyhemoglobin Sodium 133 L Potassium Chloride Carbon Dioxide 19 L BUN 109 H Creatinine 2.1 H Glucose 133 H POC Glucose 128 H 119 H Lactic Acid Calcium 7.7 L AST Alkaline Phosphatase < 5 L Lactate Dehydrogenase Total Creatine Kinase CK-MB (CK-2) C-Reactive Protein Total Protein 4.6 L Albumin < 0.2 L Urine WBC (Auto) Urine Creatinine Urine Total Protein Coronavirus (PCR) 06/09/20 06/10/20 06/10/20 17:32 00:00 05:49 WBC RBC Hgb Hct RDW Lymph % (Auto) [place] % (Auto) Lymph # [place] # Seg Neutrophils % Seg Neuts % (Manual) Lymphocytes % (Manual) Seg Neutrophils # Seg Neutrophils # Man Lymphocytes # (Manual) Monocytes # (Manual) D-Dimer Heparin Anti-Xa Level 0.19 L ABG pH ABG pO2 ABG HCO3 ABG O2 Saturation ABG Base Excess ABG Hemoglobin VBG pH Oxyhemoglobin Sodium Potassium Chloride Carbon Dioxide BUN Creatinine Glucose POC Glucose 106 H 117 H Lactic Acid Calcium AST Alkaline Phosphatase Lactate Dehydrogenase Total Creatine Kinase CK-MB (CK-2) C-Reactive Protein Total Protein Albumin Urine WBC (Auto) Urine Creatinine Urine Total Protein Coronavirus (PCR) 06/10/20 06/10/20 06/10/20 05:54 07:40 11:40 WBC RBC Hgb Hct RDW Lymph % (Auto) [place] % (Auto) Lymph # [place] # Seg Neutrophils % Seg Neuts % (Manual) Lymphocytes % (Manual) Seg Neutrophils # Seg Neutrophils # Man Lymphocytes # (Manual) Monocytes # (Manual) D-Dimer Heparin Anti-Xa Level ABG pH ABG pO2 ABG HCO3 ABG O2 Saturation ABG Base Excess ABG Hemoglobin VBG pH Oxyhemoglobin Sodium 146 H D Potassium Chloride Carbon Dioxide 20 L BUN 99 H Creatinine 1.9 H Glucose 121 H POC Glucose 127 H 138 H Lactic Acid Calcium 8.2 L AST Alkaline Phosphatase Lactate Dehydrogenase Total Creatine Kinase CK-MB (CK-2) C-Reactive Protein Total Protein Albumin Urine WBC (Auto) Urine Creatinine Urine Total Protein Coronavirus (PCR) 06/10/20 06/10/20 06/10/20 14:44 17:31 23:22 WBC RBC Hgb Hct RDW Lymph % (Auto) [place] % (Auto) Lymph # [place] # Seg Neutrophils % Seg Neuts % (Manual) Lymphocytes % (Manual) Seg Neutrophils # Seg Neutrophils # Man Lymphocytes # (Manual) Monocytes # (Manual) D-Dimer Heparin Anti-Xa Level 0.17 L ABG pH ABG pO2 ABG HCO3 ABG O2 Saturation ABG Base Excess ABG Hemoglobin VBG pH Oxyhemoglobin Sodium Potassium Chloride Carbon Dioxide BUN Creatinine Glucose POC Glucose 128 H 114 H Lactic Acid Calcium AST Alkaline Phosphatase Lactate Dehydrogenase Total Creatine Kinase CK-MB (CK-2) C-Reactive Protein Total Protein Albumin Urine WBC (Auto) Urine Creatinine Urine Total Protein Coronavirus (PCR) 06/11/20 06/11/20 06/11/20 00:22 03:45 03:45 WBC 14.6 H RBC 2.77 L Hgb 7.9 L Hct 24.3 L RDW 16.8 H Lymph % (Auto) 6.6 L [place] % (Auto) 8.5 H Lymph # 1.0 L [place] # 1.2 H Seg Neutrophils % 82.9 H Seg Neuts % (Manual) Lymphocytes % (Manual) Seg Neutrophils # 12.1 H Seg Neutrophils # Man Lymphocytes # (Manual) Monocytes # (Manual) D-Dimer Heparin Anti-Xa Level 0.24 L ABG pH ABG pO2 ABG HCO3 ABG O2 Saturation ABG Base Excess ABG Hemoglobin VBG pH Oxyhemoglobin Sodium Potassium Chloride Carbon Dioxide 20 L BUN 88 H Creatinine 1.5 H Glucose 111 H POC Glucose Lactic Acid Calcium 8.2 L AST Alkaline Phosphatase Lactate Dehydrogenase Total Creatine Kinase CK-MB (CK-2) C-Reactive Protein Total Protein Albumin Urine WBC (Auto) Urine Creatinine Urine Total Protein Coronavirus (PCR) 06/11/20 06/11/20 06/11/20 06:03 10:22 11:11 WBC RBC Hgb Hct RDW Lymph % (Auto) [place] % (Auto) Lymph # [place] # Seg Neutrophils % Seg Neuts % (Manual) Lymphocytes % (Manual) Seg Neutrophils # Seg Neutrophils # Man Lymphocytes # (Manual) Monocytes # (Manual) D-Dimer Heparin Anti-Xa Level 0.26 L ABG pH ABG pO2 ABG HCO3 ABG O2 Saturation ABG Base Excess ABG Hemoglobin 9.6 L VBG pH Oxyhemoglobin Sodium Potassium Chloride Carbon Dioxide BUN Creatinine Glucose POC Glucose 114 H Lactic Acid Calcium AST Alkaline Phosphatase Lactate Dehydrogenase Total Creatine Kinase CK-MB (CK-2) C-Reactive Protein Total Protein Albumin Urine WBC (Auto) Urine Creatinine Urine Total Protein Coronavirus (PCR) 06/11/20 06/11/20 06/12/20 12:24 17:24 00:21 WBC RBC Hgb Hct RDW Lymph % (Auto) [place] % (Auto) Lymph # [place] # Seg Neutrophils % Seg Neuts % (Manual) Lymphocytes % (Manual) Seg Neutrophils # Seg Neutrophils # Man Lymphocytes # (Manual) Monocytes # (Manual) D-Dimer Heparin Anti-Xa Level ABG pH ABG pO2 ABG HCO3 ABG O2 Saturation ABG Base Excess ABG Hemoglobin VBG pH Oxyhemoglobin Sodium Potassium Chloride Carbon Dioxide BUN Creatinine Glucose POC Glucose 119 H 126 H 117 H Lactic Acid Calcium AST Alkaline Phosphatase Lactate Dehydrogenase Total Creatine Kinase CK-MB (CK-2) C-Reactive Protein Total Protein Albumin Urine WBC (Auto) Urine Creatinine Urine Total Protein Coronavirus (PCR) 06/12/20 06/12/20 06/12/20 02:46 02:46 05:46 WBC 13.2 H RBC 2.83 L Hgb 8.3 L Hct 24.3 L RDW 16.6 H Lymph % (Auto) 6.2 L [place] % (Auto) 9.5 H Lymph # 0.8 L [place] # 1.3 H Seg Neutrophils % 81.9 H Seg Neuts % (Manual) Lymphocytes % (Manual) Seg Neutrophils # 10.9 H Seg Neutrophils # Man Lymphocytes # (Manual) Monocytes # (Manual) D-Dimer Heparin Anti-Xa Level ABG pH ABG pO2 ABG HCO3 ABG O2 Saturation ABG Base Excess ABG Hemoglobin VBG pH Oxyhemoglobin Sodium Potassium 3.5 L Chloride Carbon Dioxide BUN 77 H Creatinine 1.3 H Glucose POC Glucose 132 H Lactic Acid Calcium 8.3 L AST Alkaline Phosphatase Lactate Dehydrogenase Total Creatine Kinase CK-MB (CK-2) C-Reactive Protein Total Protein Albumin Urine WBC (Auto) Urine Creatinine Urine Total Protein Coronavirus (PCR) 06/12/20 06/12/20 09:20 12:16 WBC RBC Hgb Hct RDW Lymph % (Auto) [place] % (Auto) Lymph # [place] # Seg Neutrophils % Seg Neuts % (Manual) Lymphocytes % (Manual) Seg Neutrophils # Seg Neutrophils # Man Lymphocytes # (Manual) Monocytes # (Manual) D-Dimer Heparin Anti-Xa Level ABG pH ABG pO2 91.1 H ABG HCO3 ABG O2 Saturation ABG Base Excess ABG Hemoglobin VBG pH Oxyhemoglobin 94.8 L Sodium Potassium Chloride Carbon Dioxide BUN Creatinine Glucose POC Glucose 167 H Lactic Acid Calcium AST Alkaline Phosphatase Lactate Dehydrogenase Total Creatine Kinase CK-MB (CK-2) C-Reactive Protein Total Protein Albumin Urine WBC (Auto) Urine Creatinine Urine Total Protein Coronavirus (PCR) Allied health notes reviewed: RT
[2020-06-12] MEDS ORDERED: QUEtiapine 200 MG TAB PO SCH (12:55)
--- NOTE | 2020-06-12 15:29 | XRay Report ---
ABDOMEN 1 VIEW(S) INDICATION / CLINICAL INFORMATION: NG tube placement. COMPARISON: None available. FINDINGS: TUBES / LINES: The tip of the gastric tube projects over the body of the stomach. BOWEL GAS PATTERN/EXTRALUMINAL GAS: No significant abnormality. No pneumatosis or secondary signs of free air. ADDITIONAL FINDINGS: No significant additional findings. IMPRESSION: 1. Gastric tube tip projects over the body of stomach. Signer Name: Gurpreet Rueda MD Signed: 06/12/2020 3:25 PM Workstation Name: [id number]
--- NOTE | 2020-06-12 16:22 | Progress Note ---
Assessment and Plan -- Acute hypoxemic respiratory failure From COVID-19 viral infection Patient intubated, sedated and on ventilatory support. Critical care team on board On SBT as per critical care team -- s/p PEA Cardiac arrest Cardiology team on board Conservative management as per cardiology -- Acute metabolic encephalopathy, POA likely from sepsis and s/p cardiac arrest with possible anoxic injury -- Acute renal failure likely ATN Cr slowly improving Avoid ACEI and other nephrotoxic medications Nephrology following -- Coronavirus infection with b/l PNA Completed remdesivir on 06/02 Continue dexamethasone - Last dose 06/07 ID recs appreciated. Maintained on ventilator --Klebsiella pneumonia: S to cefepime, continue --CHF (congestive heart failure) Cardiology following. Ef 45% -- Coffee ground emesis -Stress ulcers Possible stress ulcers On PPI H/H remains stable GI evaluation if Hb drops again -- Hypertension Continue amlodipine, coreg, clonidine and hydralazine Monitor BP --Mild LFT elevation: likely from COVID-19. -- DVT prophylaxis SCD to bilateral lower extremities while in bed Heparin -- Advance care planning Patient is full code. poor prognosis The high probability of a clinically significant, sudden or life threatening deterioration of the [[employer], CVS, respiratory, renal] system(s) required my full and direct attention, intervention and personal management. The aggregate critical care time was [32] minutes. This time is in addition to time spent performing reported procedures but includes the following: [x] Data Review and interpretation [x] Patient assessment and monitoring of vital signs [x] Documentation [x] Medication orders and management Brief History; 64 YO Female with a medical history of HTN, Diastolic CHF, Pulmonary HTN, DM, Obesity Hypoventilation Syndrome presents to ED for evaluation of shortness of breath. Patients history taken from EMS staff, ED staff. As per staff, the EMS was notified for difficulty breathing. Upon arrival to the patient's home the patient was found to be in distress and was subsequently transported to [facility] for further evaluation and care. In route to [facility] the patient developed cardiac arrest and was treated in accordance with ACLS protocol with return of ROSC Patient was seen and evaluated in the emergency department and was found to have acute hypoxemic respiratory failure status post cardiac arrest. Patient was intubated and placed on ventilatory support. Patient admitted to ICU due to increased risk of decompensation. Critical care team consulted in ED. She was found to have COVID-19 iinfection and was started on steroids and remdesivir. ID was consulted. Cardiology was consulted for her systolic heart failure and cardiac arrest. 06/01. Patient remains intubated and on ventilatory support today. Patient has multiple organ system failure and has poor prognosis. Patient did not experience significant medical decompensation overnight but no improvement with current therapy. 06/02. Remains intubated. her BP is elevated. Started on nicardipine drip. Cardiology following. 06/03-06/04. BP is better. Hb stable. Completed remdesivir. ID , Cardiology and Critical care team on board 06/05. Bump in creatinine. I/O reviewed. Nephrology consulted. 06/06. Has slight improvement in renal function. Nephrology on board. On SBT today. Vitals stable. 06/07. Stable renal function. No need for HD as per nephrology. She is making urine. Plan for SBT. 06/08. Off sedation and very lethargic. Her BUN is going up - effect of steroids vs GI bleed. Her hemoglobin remains stable. Will check stool guaiac. Nephrology is following. WBC bumped to 16 today. 06/09: remains intubated, wbc trended up, Cr slightly trending down. cont TF, wean off vent as tolerated. 06/10: Cr trending down, cont to wean off vent as tolerated. 06/10; Cr much improved, cont iv fluid, tolerating tube feeding. stopped vac, iv cefepime for total 10 days. 06/11; creatinine 1.5 today, sodium level has normalized. Continue tube feeding, continue cefepime for 10 days. Continue to wean off as tolerated. 06/12: planned for extubation today Subjective Date of service: 06/12/20 Principal diagnosis: Ac hypoxemic resp failure; COVID-19; pneumonia; CHF; Pulm HTN; OHS; DM II Interval history: Patient seen and examined Vitals reviewed Patient remains intubated and sedated Tolerating tube feeding Discussed with RN at the bedside Objective - Exam Narrative Exam: General appearance: Present: obese, other (intubated on the vent) - EENT Eyes: Present: PERRL - Neck Neck: Present: supple - Cardiovascular Rhythm: regular Heart Sounds: Present: S1 & S2 - Extremities Extremities: No edema - Abdominal General gastrointestinal: soft, non-tender, non-distended - Neurologic Neurologic: other (Intubated) Skin: No rash warm and dry Musculoskeletal: No joint effusion or erythema Psychiatric: Unable to assess - Constitutional Vitals: Vital Signs - 12hr 06/12/20 06/12/20 06/12/20 04:30 05:00 05:30 Temperature Pulse Rate 81 88 82 Pulse Rate [ From Monitor] Respiratory 16 15 13 Rate Blood Pressure 140/50 147/56 148/57 O2 Sat by Pulse 98 98 98 Oximetry 06/12/20 06/12/20 06/12/20 05:46 05:59 06:00 Temperature Pulse Rate 85 86 84 Pulse Rate [ From Monitor] Respiratory 13 Rate Blood Pressure 143/51 148/57 157/58 O2 Sat by Pulse 96 98 Oximetry 06/12/20 06/12/20 06/12/20 06:30 07:00 07:25 Temperature 99 F Pulse Rate 87 85 82 Pulse Rate [ From Monitor] Respiratory 14 11 L 13 Rate Blood Pressure 157/58 142/55 142/55 O2 Sat by Pulse 99 100 100 Oximetry 06/12/20 06/12/20 06/12/20 07:30 08:00 08:30 Temperature Pulse Rate 82 93 H 83 Pulse Rate [ 91 H From Monitor] Respiratory 14 15 12 Rate Blood Pressure 145/54 158/63 136/52 O2 Sat by Pulse 100 99 100 Oximetry 06/12/20 06/12/20 06/12/20 09:00 09:30 10:00 Temperature Pulse Rate 83 83 89 Pulse Rate [ From Monitor] Respiratory 13 15 15 Rate Blood Pressure 133/46 148/61 145/50 O2 Sat by Pulse 100 99 99 Oximetry 06/12/20 06/12/20 06/12/20 10:02 10:30 11:00 Temperature Pulse Rate 89 94 H 86 Pulse Rate [ From Monitor] Respiratory 14 22 Rate Blood Pressure 145/50 147/54 147/54 O2 Sat by Pulse 99 100 Oximetry 06/12/20 06/12/20 06/12/20 11:30 12:00 12:12 Temperature 97.8 F Pulse Rate 98 H 98 H Pulse Rate [ From Monitor] Respiratory 19 24 Rate Blood Pressure 128/47 148/58 O2 Sat by Pulse 96 95 Oximetry 06/12/20 06/12/20 06/12/20 12:15 12:30 13:00 Temperature Pulse Rate 98 H 97 H 95 H Pulse Rate [ 90 From Monitor] Respiratory 21 25 H Rate Blood Pressure 156/49 156/49 O2 Sat by Pulse 94 96 Oximetry 06/12/20 06/12/20 13:30 14:00 Temperature Pulse Rate 98 H 100 H Pulse Rate [ From Monitor] Respiratory 25 H 27 H Rate Blood Pressure 153/64 160/57 O2 Sat by Pulse 96 95 Oximetry - Labs CBC & Chem 7: 06/12/20 02:46 06/14/20 05:34 Labs: Abnormal lab results 06/11/20 06/12/20 06/12/20 Range/Units 17:24 00:21 02:46 WBC 13.2 H (4.5-11.0) K/mm3 RBC 2.83 L (3.65-5.03) M/mm3 Hgb 8.3 L (10.1-14.3) gm/dl Hct 24.3 L (30.3-42.9) % RDW 16.6 H (13.2-15.2) % Lymph % (Auto) 6.2 L (13.4-35.0) % [place] % (Auto) 9.5 H (0.0-7.3) % Lymph # 0.8 L (1.2-5.4) K/mm3 [place] # 1.3 H (0.0-0.8) K/mm3 Seg Neutrophils % 81.9 H (40.0-70.0) % Seg Neutrophils # 10.9 H (1.8-7.7) K/mm3 ABG pO2 (80.0-90.0) mm Hg Oxyhemoglobin (95.0-99.0) % Potassium (3.6-5.0) mmol/L BUN (7-17) mg/dL Creatinine (0.6-1.2) mg/dL POC Glucose 126 H 117 H (70-105) Calcium (8.4-10.2) mg/dL 06/12/20 06/12/20 06/12/20 Range/Units 02:46 05:46 09:20 WBC (4.5-11.0) K/mm3 RBC (3.65-5.03) M/mm3 Hgb (10.1-14.3) gm/dl Hct (30.3-42.9) % RDW (13.2-15.2) % Lymph % (Auto) (13.4-35.0) % [place] % (Auto) (0.0-7.3) % Lymph # (1.2-5.4) K/mm3 [place] # (0.0-0.8) K/mm3 Seg Neutrophils % (40.0-70.0) % Seg Neutrophils # (1.8-7.7) K/mm3 ABG pO2 91.1 H (80.0-90.0) mm Hg Oxyhemoglobin 94.8 L (95.0-99.0) % Potassium 3.5 L (3.6-5.0) mmol/L BUN 77 H (7-17) mg/dL Creatinine 1.3 H (0.6-1.2) mg/dL POC Glucose 132 H (70-105) Calcium 8.3 L (8.4-10.2) mg/dL 06/12/20 Range/Units 12:16 WBC (4.5-11.0) K/mm3 RBC (3.65-5.03) M/mm3 Hgb (10.1-14.3) gm/dl Hct (30.3-42.9) % RDW (13.2-15.2) % Lymph % (Auto) (13.4-35.0) % [place] % (Auto) (0.0-7.3) % Lymph # (1.2-5.4) K/mm3 [place] # (0.0-0.8) K/mm3 Seg Neutrophils % (40.0-70.0) % Seg Neutrophils # (1.8-7.7) K/mm3 ABG pO2 (80.0-90.0) mm Hg Oxyhemoglobin (95.0-99.0) % Potassium (3.6-5.0) mmol/L BUN (7-17) mg/dL Creatinine (0.6-1.2) mg/dL POC Glucose 167 H (70-105) Calcium (8.4-10.2) mg/dL
--- NOTE | 2020-06-12 17:58 | Progress Note ---
Assessment and Plan Cultures: Coronavirus PCR: Positive 05/28/2020 blood culture: no growth 05/28/2020 tracheal aspirate: Usual respiratory bobo 05/28/2020 urine culture: No growth 06/03/2020 urine culture: No growth Sputum culture: Klebsiella A/P: 64-year-old female with hypertension, diastolic CHF, pulmonary hypertension, diabetes, obesity hypoventilation syndrome was admitted to the emergency room after she called EMS due to difficulty breathing. On the way to the hospital, patient developed cardiac arrest and was treated as per ACLS protocol: #Bilateral pneumonia: Secondary to COVID-19. Completed 5 days of IV Remdesivir 06/02/2020. #Acute hypoxic respiratory failure: On mechanical ventilation. Minimal vent settings. #Klebsiella pneumonia: S to cefepime, continue #Status post PEA arrest, encephalopathy #HF: EF 45-50% #Mild LFT elevation: likely from COVID-19. #Mild AVANI not better Recs: Continue to monitor. Continue cefepime to complete 10 days Keisha Chaudhari MD [facility] ([facility]) M: [phone] O: [phone] F: [phone] Subjective Date of service: 06/12/20 Principal diagnosis: Ac hypoxemic resp failure; COVID-19; pneumonia; CHF; Pulm HTN; OHS; DM II Interval history: Afebrile, white count improving. Imaging personally viewed: Abdominal x-ray: No acute normality. Objective - Exam Narrative Exam: Physical exam deferred due to PPE conservation strategy. Please refer to primary team's note. - Constitutional Vitals: Vital Signs Temp Pulse Resp BP Pulse Ox 97.8 F 92 H 16 123/52 98 06/12/20 16:00 06/12/20 17:00 06/12/20 17:00 06/12/20 17:00 06/12/20 17:00 Temperature -Last 24 Hours Temperature 97.8 F Temperature 97.8 F Temperature 99 F Temperature 99.4 F Temperature 99.2 F Temperature 99.4 F - Labs CBC & Chem 7: 06/12/20 02:46 06/12/20 02:46 Labs: Abnormal lab results 06/12/20 06/12/20 06/12/20 Range/Units 00:21 02:46 02:46 WBC 13.2 H (4.5-11.0) K/mm3 RBC 2.83 L (3.65-5.03) M/mm3 Hgb 8.3 L (10.1-14.3) gm/dl Hct 24.3 L (30.3-42.9) % RDW 16.6 H (13.2-15.2) % Lymph % (Auto) 6.2 L (13.4-35.0) % Thayer % (Auto) 9.5 H (0.0-7.3) % Lymph # 0.8 L (1.2-5.4) K/mm3 Thayer # 1.3 H (0.0-0.8) K/mm3 Seg Neutrophils % 81.9 H (40.0-70.0) % Seg Neutrophils # 10.9 H (1.8-7.7) K/mm3 ABG pO2 (80.0-90.0) mm Hg Oxyhemoglobin (95.0-99.0) % Potassium 3.5 L (3.6-5.0) mmol/L BUN 77 H (7-17) mg/dL Creatinine 1.3 H (0.6-1.2) mg/dL POC Glucose 117 H (70-105) Calcium 8.3 L (8.4-10.2) mg/dL 06/12/20 06/12/20 06/12/20 Range/Units 05:46 09:20 12:16 WBC (4.5-11.0) K/mm3 RBC (3.65-5.03) M/mm3 Hgb (10.1-14.3) gm/dl Hct (30.3-42.9) % RDW (13.2-15.2) % Lymph % (Auto) (13.4-35.0) % Thayer % (Auto) (0.0-7.3) % Lymph # (1.2-5.4) K/mm3 Thayer # (0.0-0.8) K/mm3 Seg Neutrophils % (40.0-70.0) % Seg Neutrophils # (1.8-7.7) K/mm3 ABG pO2 91.1 H (80.0-90.0) mm Hg Oxyhemoglobin 94.8 L (95.0-99.0) % Potassium (3.6-5.0) mmol/L BUN (7-17) mg/dL Creatinine (0.6-1.2) mg/dL POC Glucose 132 H 167 H (70-105) Calcium (8.4-10.2) mg/dL 06/12/20 Range/Units 17:48 WBC (4.5-11.0) K/mm3 RBC (3.65-5.03) M/mm3 Hgb (10.1-14.3) gm/dl Hct (30.3-42.9) % RDW (13.2-15.2) % Lymph % (Auto) (13.4-35.0) % Thayer % (Auto) (0.0-7.3) % Lymph # (1.2-5.4) K/mm3 Thayer # (0.0-0.8) K/mm3 Seg Neutrophils % (40.0-70.0) % Seg Neutrophils # (1.8-7.7) K/mm3 ABG pO2 (80.0-90.0) mm Hg Oxyhemoglobin (95.0-99.0) % Potassium (3.6-5.0) mmol/L BUN (7-17) mg/dL Creatinine (0.6-1.2) mg/dL POC Glucose 182 H (70-105) Calcium (8.4-10.2) mg/dL
[2020-06-12] MEDS: QUEtiapine 100 MG TAB PO SCH (21:31)
[2020-06-12] MEDS: INSULIN GLARGINE 100 UNITS/ML SUB-Q SCH (21:35)
--- NOTE | 2020-06-13 03:33 | XRay Report ---
ABDOMEN 1 VIEW(S) INDICATION: Post NG Tube insertion COMPARISON: None available. FINDINGS: Dobbhoff feeding tube has tip in the duodenal Bowel gas pattern: Within normal limits. No dilated loops of large or small bowel. Free air: None. Calcified gallstones: None seen. Calcified urinary tract calculi: None seen. Additional Findings: None. Skeletal structures: No acute abnormality. IMPRESSION: 1. No acute findings. Signer Name: Sriram Shipley MD Signed: 06/13/2020 3:29 AM Workstation Name: [email or web address]
--- NOTE | 2020-06-13 03:34 | XRay Report ---
CHEST 1 VIEW INDICATION: Post extubation, COVID COMPARISON: FINDINGS: SUPPORT DEVICES: None. HEART / MEDIASTINUM: No significant abnormality. LUNGS / PLEURA: Persistent increased bronchovascular markings. No pneumothorax. ADDITIONAL FINDINGS: IMPRESSION: 1. Persistent increased bronchovascular markings Signer Name: Sriram Shipley MD Signed: 06/13/2020 3:29 AM Workstation Name: [id number]
[2020-06-13] MEDS: METOCLOPRAMIDE 10 MG/2 ML INJ IV SCH ×4 (03:53→21:55)
--- NOTE | 2020-06-13 06:14 | XRay Report ---
ABDOMEN 1 VIEW(S) INDICATION: Post NGT insertion COMPARISON: None available. FINDINGS: Dobbhoff feeding tube has its tip in the stomach Bowel gas pattern: Within normal limits. No dilated loops of large or small bowel. Free air: None. Calcified gallstones: None seen. Calcified urinary tract calculi: None seen. Additional Findings: None. Skeletal structures: No acute abnormality. IMPRESSION: 1. No acute findings. Signer Name: Sriram Shipley MD Signed: 06/13/2020 6:09 AM Workstation Name: [email or web address]
[2020-06-13] MEDS: FUROSEMIDE 40 MG/4 ML INJ IV SCH (06:51)
[2020-06-13] MEDS: cloNIDine 0.1 MG TAB PO SCH ×3 (06:52→22:04)
[2020-06-13] MEDS: cloNIDine 0.2 MG TAB PO SCH ×3 (06:53→22:05)
[2020-06-13] MEDS: hydrALAZINE 25 MG TAB PO SCH ×3 (06:53→22:05)
[2020-06-13] MEDS: INSULIN LISPRO 100 UNIT/ML VIAL 3 mL SUB-Q SCH ×4 (07:53→17:40)
[2020-06-13] MEDS: GLYCOPYRROLATE 2 MG TAB PO SCH ×3 (08:49→22:05)
[2020-06-13] MEDS: CEFEPIME/NS 2 GM/100 ML 2 GM/100 ML BAG IV SCH ×2 (09:04→21:56)
[2020-06-13] MEDS: SENNOSIDES ORAL LIQD 8.8 MG/5 ML ORAL LIQD FEEDTUBE SCH ×2 (09:04→22:06)
[2020-06-13] MEDS: SODIUM BICARBONATE 650 MG TAB PO SCH ×2 (09:05→22:05)
[2020-06-13] MEDS: carvediloL 12.5 MG TAB PO SCH ×2 (09:05→22:03)
[2020-06-13] MEDS: levETIRAcetam 500 MG TAB PO SCH ×2 (09:05→22:06)
[2020-06-13] MEDS: amLODIPine 10 MG TAB PO SCH (09:06)
[2020-06-13] MEDS: LANSOPRAZOLE 30 MG SOLUTAB FEEDTUBE SCH (09:06)
--- NOTE | 2020-06-13 10:11 | Progress Note ---
Assessment and Plan - Patient Problems (1) Acute kidney injury (AVANI) with acute tubular necrosis (ATN) Current Visit: Yes Status: Acute Plan to address problem: Kidney function has been improving. Patient is nonoliguric. No labs today. Follow-up electrolytes and renal function (2) Acute hypoxemic respiratory failure Current Visit: Yes Status: Acute Plan to address problem: Being managed by pulmonary. Weaning ongoing (3) Cardiac arrest Current Visit: Yes Status: Acute Plan to address problem: Patient is improving (4) Metabolic encephalopathy Current Visit: Yes Status: Acute Plan to address problem: Mental status is improving (5) Pneumonia due to COVID-19 virus Current Visit: Yes Status: Acute Plan to address problem: Patient has completed 5 days of Remdesevir. Completed course of steroids. Patient is improving (6) Cardiomyopathy Current Visit: No Status: Acute Qualifiers: Cardiomyopathy type: unspecified Qualified Code(s): I42.9 - Cardiomyopathy, unspecified Plan to address problem: On Lasix. Patient is stable (7) Hyperglycemia due to type 2 diabetes mellitus Current Visit: No Status: Acute Qualifiers: Diabetes mellitus alf insulin use: without beauty culture teacher use Qualified Code(s): E11.65 - Type 2 diabetes mellitus with hyperglycemia Plan to address problem: Blood sugar management by primary attending Subjective Date of service: 06/13/20 Principal diagnosis: Ac hypoxemic resp failure; COVID-19; pneumonia; CHF; Pulm HTN; OHS; DM II Interval history: Chart reviewed. Patient was not examined today due to PPE conservation given the COVID-19 pandemic Objective - Exam Narrative Exam: Patient was not examined today due to PPE conservation given the COVID-19 pandemic - Vital Signs Vital signs: Vital Signs - 12hr 06/12/20 06/12/20 06/12/20 22:19 22:30 22:38 Temperature Pulse Rate 79 81 Pulse Rate [ From Monitor] Respiratory 25 H Rate Blood Pressure 124/45 124/45 O2 Sat by Pulse 99 99 Oximetry 06/12/20 06/12/20 06/12/20 23:00 23:30 23:33 Temperature 98.4 F Pulse Rate 81 82 Pulse Rate [ From Monitor] Respiratory 25 H 21 Rate Blood Pressure 123/50 133/50 O2 Sat by Pulse 98 99 Oximetry 06/13/20 06/13/20 06/13/20 00:00 00:30 01:00 Temperature Pulse Rate 80 78 80 Pulse Rate [ 78 From Monitor] Respiratory 20 22 19 Rate Blood Pressure 140/52 136/54 136/54 O2 Sat by Pulse 99 99 100 Oximetry 06/13/20 06/13/20 06/13/20 01:30 02:00 02:30 Temperature Pulse Rate 79 76 83 Pulse Rate [ From Monitor] Respiratory 15 20 13 Rate Blood Pressure 132/59 139/54 O2 Sat by Pulse 100 100 99 Oximetry 06/13/20 06/13/20 06/13/20 03:00 03:30 04:00 Temperature Pulse Rate 75 70 72 Pulse Rate [ 78 From Monitor] Respiratory 13 13 13 Rate Blood Pressure 136/59 135/54 135/54 O2 Sat by Pulse 100 100 100 Oximetry 06/13/20 06/13/20 06/13/20 04:30 05:00 05:30 Temperature Pulse Rate 72 64 69 Pulse Rate [ From Monitor] Respiratory 16 13 13 Rate Blood Pressure 135/53 135/53 116/47 O2 Sat by Pulse 100 100 100 Oximetry 06/13/20 06/13/20 06/13/20 06:00 06:30 06:52 Temperature Pulse Rate 73 74 Pulse Rate [ 78 From Monitor] Respiratory 18 13 Rate Blood Pressure 118/51 139/53 143/60 O2 Sat by Pulse 98 100 Oximetry 06/13/20 06/13/20 06/13/20 06:53 07:00 07:30 Temperature Pulse Rate 73 62 Pulse Rate [ From Monitor] Respiratory 13 18 Rate Blood Pressure 143/60 143/60 132/55 O2 Sat by Pulse 100 100 Oximetry 06/13/20 06/13/20 06/13/20 08:00 08:05 08:30 Temperature 98.2 F Pulse Rate 62 62 58 L Pulse Rate [ 58 L From Monitor] Respiratory 12 23 14 Rate Blood Pressure 114/50 114/50 107/46 O2 Sat by Pulse 100 100 99 Oximetry 06/13/20 06/13/20 06/13/20 09:00 09:05 09:06 Temperature Pulse Rate 68 72 72 Pulse Rate [ From Monitor] Respiratory 13 Rate Blood Pressure 106/56 106/56 106/56 O2 Sat by Pulse 100 Oximetry - Lab 06/12/20 02:46 06/12/20 02:46 Most recent lab results ABG pH 7.409 pH Units (7.350-7.450) 06/12/20 09:20 ABG pCO2 42.0 mm Hg 06/12/20 09:20 ABG pO2 91.1 mm Hg (80.0-90.0) H 06/12/20 09:20 ABG HCO3 25.9 mmol/L (20.0-26.0) 06/12/20 09:20 ABG O2 Saturation 97.0 % (95.0-99.0) 06/12/20 09:20 Calcium 8.3 mg/dL (8.4-10.2) L 06/12/20 02:46 Urine Creatinine 82.2 mg/dL (0.1-20.0) H 06/06/20 04:00 Urine Sodium 20 mmol/L 06/06/20 04:00 Urine Total Protein 196 mg/dL (5-11.8) H 06/06/20 04:00 Medications & Allergies - Medications Allergies/Adverse Reactions: Allergies No Known Allergies Allergy (Verified 01/21/20 12:28) Home Medications: Home Medications Medication Instructions Recorded Confirmed Last Taken Type AtorvaSTATin [Lipitor] 20 mg PO QHS 05/12/20 05/29/20 Unknown History lisinopriL [Zestril TAB] 40 mg PO QDAY 05/12/20 05/29/20 Unknown History metFORMIN [Glucophage] 850 mg PO BID 05/12/20 05/29/20 Unknown History Acetaminophen [Acetaminophen TAB] 650 mg PO Q4H PRN tablet 05/13/20 05/29/20 Unknown Rx Dicyclomine [Bentyl] 20 mg PO BID #20 tablet 05/13/20 05/29/20 Unknown Rx Famotidine [Pepcid] 20 mg PO BID #30 tablet 05/13/20 05/29/20 Unknown Rx carvediloL [Coreg] 6.25 mg PO BID #60 05/13/20 05/29/20 Unknown Rx Active Medications: Generic Name Dose Route Start Last Admin Trade Name Freq PRN Reason Stop Dose Admin Acetaminophen 650 mg 06/09/20 10:57 06/09/20 20:28 Tylenol FEEDTUBE 650 mg Q6H PRN Administration Fever >101 Amlodipine Besylate 10 mg 06/02/20 11:00 06/13/20 09:06 Amlodipine PO 10 mg DAILY NELSON Administration Lipase/Protease/Amylase 1 each 05/29/20 13:[address] 10,500 Unit FEEDTUBE PRN PRN For Clogged Feeding Tube Carvedilol 12.5 mg 06/03/20 10:00 06/13/20 09:05 Coreg PO 12.5 mg BID NELSON Administration Clonidine HCl 0.1 mg 06/04/20 06:00 06/13/20 06:52 Catapres PO 0.1 mg Q8HR NELSON Administration Clonidine HCl 0.2 mg 06/04/20 06:00 06/13/20 06:53 Catapres PO 0.2 mg Q8HR NELSON Administration Fentanyl 50 mcg 05/29/20 14:21 06/09/20 20:27 Sublimaze IV 50 mcg Q10MIN PRN Administration ANALGESIA Furosemide 60 mg 06/09/20 10:00 06/13/20 06:51 Lasix IV 60 mg 0600,1800 NELSON Administration Glycopyrrolate 2 mg 06/09/20 14:00 06/13/20 08:49 Glycopyrrolate PO 2 mg TID NELSON Administration Hydralazine HCl 50 mg 06/03/20 09:00 06/13/20 06:53 Apresoline PO 50 mg Q8HR NELSON Administration Hydrophilic Ointment 1 applic 05/28/20 13:49 Vaseline Lip Therapy TP Q2HR PRN Dry Lips Heparin Sodium/Sodium Chloride 25,000 unit in 500 mls @ 30 mls/hr 05/29/20 15:00 06/12/20 21:53 Heparin/ 0.45% Nacl-25,000 Unit/500 Ml IV 1,850 units/hr TITR NELSON 37 mls/hr Administration Protocol 1,500 UNITS/HR Fentanyl Citrate 2,000 mcg in 100 mls @ 6.095 mls/hr 05/29/20 15:00 06/07/20 08:30 Fentanyl Drip Premix IV 0 mcg/kg/hr TITR NELSON 0 mls/hr Titration Protocol 1 MCG/KG/HR Nicardipine HCl 50 mg/ Sodium 250 mls @ 25 mls/hr 06/02/20 09:00 06/02/20 11:23 Chloride IV 0 mg/hr TITR NELSON 0 mls/hr Titration Protocol 5 MG/HR Cefepime HCl 2 gm in 100 mls @ 200 mls/hr 06/11/20 10:00 06/13/20 09:04 Cefepime/Ns 2 Gm/100 Ml IV 200 mls/hr Q12HR NELSON Administration Protocol Insulin Glargine 10 units 06/08/20 22:00 06/12/20 21:35 Lantus SUB-Q 10 units QHS NELSON Administration Insulin Human Lispro 0 unit 05/29/20 18:00 06/13/20 07:53 Humalog SUB-Q Not Given Q6H [facility] Protocol Labetalol HCl 20 mg 06/03/20 09:00 06/08/20 23:51 Labetalol IV 20 mg Q4H PRN Administration HYPERTENSION Lansoprazole 30 mg 06/05/20 22:00 06/13/20 09:06 Prevacid Solutab FEEDTUBE 30 mg BID NELSON Administration Levetiracetam 500 mg 05/29/20 22:00 06/13/20 09:05 Keppra PO 500 mg BID NELSON Administration Metoclopramide HCl 10 mg 06/10/20 20:00 06/13/20 08:49 Reglan IV 10 mg Q6H NELSON Administration Multi-Ingred Cream/Lotion/Oil/Oint 1 applic 05/28/20 13:49 Artificial Tears Ophth Oint OU Q4HR PRN Dry Eye(s) Ondansetron HCl 4 mg 06/02/20 09:00 06/09/20 16:48 Zofran IV 4 mg Q8H PRN Administration Nausea And Vomiting Quetiapine Fumarate 100 mg 06/12/20 22:00 06/12/20 21:31 Seroquel PO 100 mg QHS NELSON Administration Scopolamine 1 each 06/05/20 14:00 06/11/20 09:38 Transderm-Scop TD 1 each Q3D NELSON Administration Senna 17.6 mg 06/03/20 10:00 06/13/20 09:04 Senokot FEEDTUBE 17.6 mg BID NELSON Administration Simple Syrup 15 ml 05/29/20 13:39 Simple Syrup FEEDTUBE PRN PRN Hypoglycemia Simple Syrup 30 ml 05/29/20 13:39 Simple Syrup FEEDTUBE PRN PRN Hypoglycemia Sodium Bicarbonate 325 mg 05/29/20 13:39 Sodium Bicarbonate FEEDTUBE PRN PRN For Clogged Feeding Tube Sodium Bicarbonate 650 mg 06/06/20 10:00 06/13/20 09:05 Sodium Bicarbonate PO 650 mg BID NELSON Administration Sodium Chloride 10 ml 05/28/20 22:00 06/13/20 09:07 Sodium Chloride Flush Syringe 10 Ml IV 10 ml BID NELSON Administration Sodium Chloride 10 ml 05/28/20 19:08 06/13/20 09:04 Sodium Chloride Flush Syringe 10 Ml IV 10 ml PRN PRN Administration LINE FLUSH
[2020-06-13] MEDS: HEPARIN/ 0.45% NACL DRIP 25,000 UNIT/500 ML BAG IV SCH (13:06)
--- NOTE | 2020-06-13 14:56 | Progress Note ---
Assessment and Plan -- Acute hypoxemic respiratory failure From COVID-19 viral infection Patient intubated, sedated and on ventilatory support. Critical care team on board On SBT as per critical care team -- s/p PEA Cardiac arrest Cardiology team on board Conservative management as per cardiology -- Acute metabolic encephalopathy, POA likely from sepsis and s/p cardiac arrest with possible anoxic injury -- Acute renal failure likely ATN Cr slowly improving Avoid ACEI and other nephrotoxic medications Nephrology following -- Coronavirus infection with b/l PNA Completed remdesivir on 06/02 Continue dexamethasone - Last dose 06/07 ID recs appreciated. Maintained on ventilator --Klebsiella pneumonia: S to cefepime, continue --CHF (congestive heart failure) Cardiology following. Ef 45% -- Coffee ground emesis -Stress ulcers Possible stress ulcers On PPI H/H remains stable GI evaluation if Hb drops again -- Hypertension Continue amlodipine, coreg, clonidine and hydralazine Monitor BP --Mild LFT elevation: likely from COVID-19. -- DVT prophylaxis SCD to bilateral lower extremities while in bed Heparin -- Advance care planning Patient is full code. poor prognosis The high probability of a clinically significant, sudden or life threatening deterioration of the [DECONTAMINATION TECHNICIAN, CVS, respiratory, renal] system(s) required my full and direct attention, intervention and personal management. The aggregate critical care time was [32] minutes. This time is in addition to time spent performing reported procedures but includes the following: [x] Data Review and interpretation [x] Patient assessment and monitoring of vital signs [x] Documentation [x] Medication orders and management Brief History; 64 YO Female with a medical history of HTN, Diastolic CHF, Pulmonary HTN, DM, Obesity Hypoventilation Syndrome presents to ED for evaluation of shortness of breath. Patients history taken from EMS staff, ED staff. As per staff, the EMS was notified for difficulty breathing. Upon arrival to the patient's home the patient was found to be in distress and was subsequently transported to [facility] for further evaluation and care. In route to [facility] the patient developed cardiac arrest and was treated in accordance with ACLS protocol with return of ROSC Patient was seen and evaluated in the emergency department and was found to have acute hypoxemic respiratory failure status post cardiac arrest. Patient was intubated and placed on ventilatory support. Patient admitted to ICU due to increased risk of decompensation. Critical care team consulted in ED. She was found to have COVID-19 iinfection and was started on steroids and remdesivir. ID was consulted. Cardiology was consulted for her systolic heart failure and cardiac arrest. 06/01. Patient remains intubated and on ventilatory support today. Patient has multiple organ system failure and has poor prognosis. Patient did not experience significant medical decompensation overnight but no improvement with current therapy. 06/02. Remains intubated. her BP is elevated. Started on nicardipine drip. Cardiology following. 06/03-06/04. BP is better. Hb stable. Completed remdesivir. ID , Cardiology and Critical care team on board 06/05. Bump in creatinine. I/O reviewed. Nephrology consulted. 06/06. Has slight improvement in renal function. Nephrology on board. On SBT today. Vitals stable. 06/07. Stable renal function. No need for HD as per nephrology. She is making urine. Plan for SBT. 06/08. Off sedation and very lethargic. Her BUN is going up - effect of steroids vs GI bleed. Her hemoglobin remains stable. Will check stool guaiac. Nephrology is following. WBC bumped to 16 today. 06/09: remains intubated, wbc trended up, Cr slightly trending down. cont TF, wean off vent as tolerated. 06/10: Cr trending down, cont to wean off vent as tolerated. 06/10; Cr much improved, cont iv fluid, tolerating tube feeding. stopped vac, iv cefepime for total 10 days. 06/11; creatinine 1.5 today, sodium level has normalized. Continue tube feeding, continue cefepime for 10 days. Continue to wean off as tolerated. 06/12: planned for extubation today 06/13: extubated yesterday, now on Bipap 06/14: patient on Bipap, remains on TF, restraint. cont to follow clinically Subjective Date of service: 06/13/20 Principal diagnosis: Ac hypoxemic resp failure; COVID-19; pneumonia; CHF; Pulm HTN; OHS; DM II Interval history: Patient seen and examined Vitals reviewed Patient on BiPAP Tolerating tube feeding Discussed with RN at the bedside Objective - Exam Narrative Exam: General appearance: Present: obese, other (on bipap) - EENT Eyes: Present: PERRL - Neck Neck: Present: supple - Cardiovascular Rhythm: regular Heart Sounds: Present: S1 & S2 - Extremities Extremities: No edema - Abdominal General gastrointestinal: soft, non-tender, non-distended - Neurologic Neurologic: doesnot follow commend Skin: No rash warm and dry Musculoskeletal: No joint effusion or erythema Psychiatric: Unable to assess - Constitutional Vitals: Vital Signs - 12hr 06/13/20 06/13/20 06/13/20 03:00 03:30 04:00 Temperature Pulse Rate 75 70 72 Pulse Rate [ 78 From Monitor] Respiratory 13 13 13 Rate Blood Pressure 136/59 135/54 135/54 O2 Sat by Pulse 100 100 100 Oximetry 06/13/20 06/13/20 06/13/20 04:30 05:00 05:30 Temperature Pulse Rate 72 64 69 Pulse Rate [ From Monitor] Respiratory 16 13 13 Rate Blood Pressure 135/53 135/53 116/47 O2 Sat by Pulse 100 100 100 Oximetry 06/13/20 06/13/20 06/13/20 06:00 06:30 06:52 Temperature Pulse Rate 73 74 Pulse Rate [ 78 From Monitor] Respiratory 18 13 Rate Blood Pressure 118/51 139/53 143/60 O2 Sat by Pulse 98 100 Oximetry 06/13/20 06/13/20 06/13/20 06:53 07:00 07:30 Temperature Pulse Rate 73 62 Pulse Rate [ From Monitor] Respiratory 13 18 Rate Blood Pressure 143/60 143/60 132/55 O2 Sat by Pulse 100 100 Oximetry 06/13/20 06/13/20 06/13/20 08:00 08:05 08:30 Temperature 98.2 F Pulse Rate 62 62 58 L Pulse Rate [ 58 L From Monitor] Respiratory 12 23 14 Rate Blood Pressure 114/50 114/50 107/46 O2 Sat by Pulse 100 100 99 Oximetry 06/13/20 06/13/20 06/13/20 09:00 09:05 09:06 Temperature Pulse Rate 68 72 72 Pulse Rate [ From Monitor] Respiratory 13 Rate Blood Pressure 106/56 106/56 106/56 O2 Sat by Pulse 100 Oximetry 06/13/20 06/13/20 06/13/20 09:30 10:00 10:30 Temperature Pulse Rate 68 62 62 Pulse Rate [ From Monitor] Respiratory 12 15 16 Rate Blood Pressure 106/56 122/50 109/45 O2 Sat by Pulse 100 98 99 Oximetry 06/13/20 06/13/20 06/13/20 11:00 11:30 12:00 Temperature 97.9 F Pulse Rate 68 62 60 Pulse Rate [ 63 From Monitor] Respiratory 12 12 12 Rate Blood Pressure 119/51 115/53 126/53 O2 Sat by Pulse 100 100 100 Oximetry 06/13/20 06/13/20 06/13/20 12:30 12:52 13:00 Temperature Pulse Rate 62 64 64 Pulse Rate [ From Monitor] Respiratory 12 26 H 12 Rate Blood Pressure 120/52 119/51 127/52 O2 Sat by Pulse 100 100 100 Oximetry 06/13/20 13:01 Temperature Pulse Rate 64 Pulse Rate [ From Monitor] Respiratory Rate Blood Pressure 127/52 O2 Sat by Pulse Oximetry - Labs CBC & Chem 7: 06/12/20 02:46 06/14/20 05:34 Labs: Abnormal lab results 06/12/20 06/13/20 06/13/20 Range/Units 17:48 00:08 05:37 Heparin Anti-Xa Level (0.3-0.7) U.I./ml POC Glucose 182 H 142 H 119 H (70-105) 06/13/20 Range/Units 09:09 Heparin Anti-Xa Level 0.86 H (0.3-0.7) U.I./ml POC Glucose (70-105)
--- NOTE | 2020-06-13 16:54 | Progress Note ---
Assessment and Plan Acute hypoxemic respiratory failure on MVS Coronavirus-19 infection. Bilateral pulmonary infiltrates, bilateral pneumonia plus likely element of Pulmonary edema. Bilateral pulmonary edema. Bilateral pleural effusions. History of congestive heart failure. Morbid obesity. History of pulmonary hypertension. History of hypertension. Diabetes. Obesity hypoventilation syndrome. Elevated serum inflammatory markers to include D-dimers and LDH levels. Hyperkalemia at presentation. Metabolic acidosis. Oropharyngeal dysphagia. - asked RT to give a break off BIPAP now; pl;an to transition to qhs BIPAP sc heduled with prn daytime use - continue Reglan - continue Robinul and scopolamine for secretions control (improved) - continue care as below otherwise; - strict I's and O's - continue to wean supplemental oxygen for target O2 sat's > 90% acutely - continue aspiration precautions - continue lung protective strategies - continue bronchodilators with pulmonary hygiene per RT - wean per pulmonary driven protocols otherwise - continue accuchecks with glycemic control per SSI (While critically ill target blood glucose of 140-180 mg/dL; avoid hypoglycemia) - continue to avoid benzodiazepine's, reduce the possibility of delirium - azotemia per nephrology - continue to avoid nephrotoxins and renally dose all medications - completed AB's per ID rec's - prn analgesia per pain score - Maintenance of sleep-wake cycle, avoid delirium - continue enteral nutritional support at goal rate as tolerated - G.I. & VTE prophylaxis - PT/OT/ROM exercises - continue mobility protocols for pressure ulcer prophylaxis - Monitor hemodynamics closely - continue other care per attending / other consultants - discharge planning ongoing concurrently .... Re-evaluate in am & prn CONDITION: CRITICAL PROGNOSIS: GUARDED CODE STATUS: FULL CODE The high probability of a clinically significant, sudden or life-threatening deterioration of the [respiratory, cardiovascular, renal & neurologic] system(s) required my full and direct attention, intervention and personal management. The aggregate critical care time was [35] minutes without overlap. Time includes spent on; [x] Data Review and interpretation [x] Patient assessment and monitoring of vital signs [x] Documentation [x] Medication orders and management Subjective Date of service: 06/13/20 Principal diagnosis: Ac hypoxemic resp failure; COVID-19; pneumonia; CHF; Pulm HTN; OHS; DM II Interval history: Patient is seen today for: Ac hypoxemic resp failure; Coronavirus-19 infection; pneumonia; Pulmonary edema; Bilateral pleural effusions; CHF; Morbid obesity; pulmonary hypertension; OHS; DM II Seen and examined at bedside; 24hour events reviewed; nursing and respiratory care staff consulted; no adverse overnight events reported to me; resting peacefully in bed; extubated but requiring BIPAP support; following commands appropriately; denies acute chest pains or SOB; No N/V/F/C Objective Vital Signs - 12hr 06/13/20 06/13/20 06/13/20 05:00 05:30 06:00 Temperature Pulse Rate 64 69 73 Pulse Rate [ 78 From Monitor] Respiratory 13 13 18 Rate Blood Pressure 135/53 116/47 118/51 O2 Sat by Pulse 100 100 98 Oximetry 06/13/20 06/13/20 06/13/20 06:30 06:52 06:53 Temperature Pulse Rate 74 Pulse Rate [ From Monitor] Respiratory 13 Rate Blood Pressure 139/53 143/60 143/60 O2 Sat by Pulse 100 Oximetry 06/13/20 06/13/20 06/13/20 07:00 07:30 08:00 Temperature 98.2 F Pulse Rate 73 62 62 Pulse Rate [ 58 L From Monitor] Respiratory 13 18 12 Rate Blood Pressure 143/60 132/55 114/50 O2 Sat by Pulse 100 100 100 Oximetry 06/13/20 06/13/20 06/13/20 08:05 08:30 09:00 Temperature Pulse Rate 62 58 L 68 Pulse Rate [ From Monitor] Respiratory 23 14 13 Rate Blood Pressure 114/50 107/46 106/56 O2 Sat by Pulse 100 99 100 Oximetry 06/13/20 06/13/20 06/13/20 09:05 09:06 09:30 Temperature Pulse Rate 72 72 68 Pulse Rate [ From Monitor] Respiratory 12 Rate Blood Pressure 106/56 106/56 106/56 O2 Sat by Pulse 100 Oximetry 06/13/20 06/13/20 06/13/20 10:00 10:30 11:00 Temperature Pulse Rate 62 62 68 Pulse Rate [ From Monitor] Respiratory 15 16 12 Rate Blood Pressure 122/50 109/45 119/51 O2 Sat by Pulse 98 99 100 Oximetry 06/13/20 06/13/20 06/13/20 11:30 12:00 12:30 Temperature 97.9 F Pulse Rate 62 60 62 Pulse Rate [ 63 From Monitor] Respiratory 12 12 12 Rate Blood Pressure 115/53 126/53 120/52 O2 Sat by Pulse 100 100 100 Oximetry 06/13/20 06/13/20 06/13/20 12:52 13:00 13:01 Temperature Pulse Rate 64 64 64 Pulse Rate [ From Monitor] Respiratory 26 H 12 Rate Blood Pressure 119/51 127/52 127/52 O2 Sat by Pulse 100 100 Oximetry 06/13/20 06/13/20 06/13/20 13:30 14:00 14:30 Temperature Pulse Rate 65 63 63 Pulse Rate [ From Monitor] Respiratory 13 15 14 Rate Blood Pressure 118/51 109/48 112/48 O2 Sat by Pulse 100 100 100 Oximetry 06/13/20 06/13/20 06/13/20 15:00 15:30 16:00 Temperature 97.9 F Pulse Rate 64 66 66 Pulse Rate [ 72 From Monitor] Respiratory 11 L 13 13 Rate Blood Pressure 116/50 121/51 124/49 O2 Sat by Pulse 100 100 100 Oximetry Constitutional: no acute distress, other (elderly looking obese female on PSV ) Eyes: non-icteric ENT: oropharynx moist, other (extubated) Neck: supple, no lymphadenopathy, no JVD, other (large neck circumference) Effort: mildly labored Ascultation: Bilateral: diminished breath sounds, rhonchi Percussion: Bilateral: not dull Cardiovascular: regular rate and rhythm, other (S1,S2) Gastrointestinal: normoactive bowel sounds, soft, non-tender, non-distended Integumentary: normal Extremities: no cyanosis, no edema, pink and warm, pulses normal, no ischemia or petechiae Neurologic: normal mental status, non-focal exam (grossly), pupils equal and round, motor strength normal and Psychiatric: mood appropriate, affect normal CBC and BMP: 06/15/20 04:24 06/18/20 04:42 ABG, PT/INR, D-dimer: ABG ABG pH 7.409 pH Units (7.350-7.450) 06/12/20 09:20 POC ABG pCO2 37.4 mmHg (32.0-48.0) 06/11/20 11:11 ABG pCO2 42.0 mm Hg 06/12/20 09:20 POC ABG pO2 101.9 mmHg (83-108) 06/11/20 11:11 ABG pO2 91.1 mm Hg (80.0-90.0) H 06/12/20 09:20 ABG O2 Saturation 97.0 % (95.0-99.0) 06/12/20 09:20 PT/INR, D-dimer PT 14.2 Sec. (12.2-14.9) 05/29/20 15:10 INR 1.08 (0.87-1.13) 05/29/20 15:10 D-Dimer 414.52 ng/mlDDU (0-234) H 06/04/20 04:19 Abnormal lab findings: Abnormal Labs 05/28/20 05/28/20 05/28/20 13:29 13:47 13:47 WBC RBC Hgb Hct RDW 15.3 H Lymph % (Auto) [place] % (Auto) Lymph # [place] # Seg Neutrophils % Seg Neuts % (Manual) Lymphocytes % (Manual) Seg Neutrophils # Seg Neutrophils # Man Lymphocytes # (Manual) Monocytes # (Manual) D-Dimer Heparin Anti-Xa Level ABG pH ABG pO2 ABG HCO3 ABG O2 Saturation ABG Base Excess ABG Hemoglobin VBG pH Oxyhemoglobin Sodium Potassium 6.6 H* Chloride 109.2 H Carbon Dioxide 17 L BUN 29 H Creatinine 1.3 H Glucose 265 H POC Glucose 248 H Lactic Acid Calcium 8.1 L AST 63 H Alkaline Phosphatase Lactate Dehydrogenase Total Creatine Kinase 301 H CK-MB (CK-2) 4.3 H C-Reactive Protein Total Protein 5.4 L Albumin 2.6 L Urine WBC (Auto) Urine Creatinine Urine Total Protein Coronavirus (PCR) 05/28/20 05/28/20 05/28/20 13:47 13:47 14:46 WBC RBC Hgb Hct RDW Lymph % (Auto) [place] % (Auto) Lymph # [place] # Seg Neutrophils % Seg Neuts % (Manual) Lymphocytes % (Manual) Seg Neutrophils # Seg Neutrophils # Man Lymphocytes # (Manual) Monocytes # (Manual) D-Dimer Heparin Anti-Xa Level ABG pH ABG pO2 ABG HCO3 ABG O2 Saturation ABG Base Excess ABG Hemoglobin VBG pH 7.152 L* Oxyhemoglobin Sodium Potassium 7.2 H* Chloride Carbon Dioxide BUN Creatinine Glucose POC Glucose Lactic Acid 3.40 H* Calcium AST Alkaline Phosphatase Lactate Dehydrogenase Total Creatine Kinase CK-MB (CK-2) C-Reactive Protein Total Protein Albumin Urine WBC (Auto) Urine Creatinine Urine Total Protein Coronavirus (PCR) 05/28/20 05/28/20 05/28/20 15:33 15:33 15:51 WBC RBC Hgb Hct RDW Lymph % (Auto) [place] % (Auto) Lymph # [place] # Seg Neutrophils % Seg Neuts % (Manual) Lymphocytes % (Manual) Seg Neutrophils # Seg Neutrophils # Man Lymphocytes # (Manual) Monocytes # (Manual) D-Dimer 8780.43 H Heparin Anti-Xa Level ABG pH 7.284 L ABG pO2 273.0 H ABG HCO3 ABG O2 Saturation 99.4 H ABG Base Excess -6.1 L ABG Hemoglobin 17.2 H VBG pH Oxyhemoglobin Sodium Potassium Chloride Carbon Dioxide BUN Creatinine Glucose 152 H POC Glucose Lactic Acid Calcium AST Alkaline Phosphatase Lactate Dehydrogenase 365 H Total Creatine Kinase CK-MB (CK-2) C-Reactive Protein Total Protein Albumin Urine WBC (Auto) Urine Creatinine Urine Total Protein Coronavirus (PCR) 05/28/20 05/28/20 05/28/20 16:30 20:41 23:20 WBC RBC Hgb Hct RDW Lymph % (Auto) [place] % (Auto) Lymph # [place] # Seg Neutrophils % Seg Neuts % (Manual) Lymphocytes % (Manual) Seg Neutrophils # Seg Neutrophils # Man Lymphocytes # (Manual) Monocytes # (Manual) D-Dimer Heparin Anti-Xa Level ABG pH ABG pO2 ABG HCO3 ABG O2 Saturation ABG Base Excess ABG Hemoglobin VBG pH Oxyhemoglobin Sodium Potassium Chloride Carbon Dioxide BUN Creatinine Glucose POC Glucose 225 H 224 H Lactic Acid Calcium AST Alkaline Phosphatase Lactate Dehydrogenase Total Creatine Kinase CK-MB (CK-2) C-Reactive Protein Total Protein Albumin Urine WBC (Auto) 17.0 H Urine Creatinine Urine Total Protein Coronavirus (PCR) 05/28/20 05/29/20 05/29/20 Unknown 04:35 04:43 WBC RBC 3.48 L Hgb 9.8 L Hct 29.4 L RDW 16.0 H Lymph % (Auto) 7.4 L [place] % (Auto) Lymph # 0.7 L [place] # Seg Neutrophils % 89.1 H Seg Neuts % (Manual) Lymphocytes % (Manual) Seg Neutrophils # 8.1 H Seg Neutrophils # Man Lymphocytes # (Manual) Monocytes # (Manual) D-Dimer Heparin Anti-Xa Level ABG pH ABG pO2 ABG HCO3 19.3 L ABG O2 Saturation ABG Base Excess -4.5 L ABG Hemoglobin 9.7 L VBG pH Oxyhemoglobin Sodium Potassium Chloride Carbon Dioxide BUN Creatinine Glucose POC Glucose Lactic Acid Calcium AST Alkaline Phosphatase Lactate Dehydrogenase Total Creatine Kinase CK-MB (CK-2) C-Reactive Protein Total Protein Albumin Urine WBC (Auto) Urine Creatinine Urine Total Protein Coronavirus (PCR) Positive A 05/29/20 05/29/20 05/29/20 04:43 15:10 17:17 WBC RBC Hgb 9.3 L Hct 28.7 L RDW Lymph % (Auto) [place] % (Auto) Lymph # [place] # Seg Neutrophils % Seg Neuts % (Manual) Lymphocytes % (Manual) Seg Neutrophils # Seg Neutrophils # Man Lymphocytes # (Manual) Monocytes # (Manual) D-Dimer Heparin Anti-Xa Level ABG pH ABG pO2 ABG HCO3 ABG O2 Saturation ABG Base Excess ABG Hemoglobin VBG pH Oxyhemoglobin Sodium Potassium Chloride 110.2 H Carbon Dioxide 18 L BUN 32 H Creatinine 1.4 H Glucose 180 H POC Glucose 147 H Lactic Acid Calcium AST Alkaline Phosphatase Lactate Dehydrogenase Total Creatine Kinase CK-MB (CK-2) C-Reactive Protein Total Protein Albumin Urine WBC (Auto) Urine Creatinine Urine Total Protein Coronavirus (PCR) 05/30/20 05/30/20 05/30/20 00:08 00:12 04:15 WBC RBC Hgb Hct RDW Lymph % (Auto) [place] % (Auto) Lymph # [place] # Seg Neutrophils % Seg Neuts % (Manual) Lymphocytes % (Manual) Seg Neutrophils # Seg Neutrophils # Man Lymphocytes # (Manual) Monocytes # (Manual) D-Dimer Heparin Anti-Xa Level 0.71 H ABG pH 7.460 H ABG pO2 106.0 H ABG HCO3 18.9 L ABG O2 Saturation ABG Base Excess -4.4 L ABG Hemoglobin 6.8 L VBG pH Oxyhemoglobin Sodium Potassium Chloride Carbon Dioxide BUN Creatinine Glucose POC Glucose 195 H Lactic Acid Calcium AST Alkaline Phosphatase Lactate Dehydrogenase Total Creatine Kinase CK-MB (CK-2) C-Reactive Protein Total Protein Albumin Urine WBC (Auto) Urine Creatinine Urine Total Protein Coronavirus (PCR) 05/30/20 05/30/20 05/30/20 06:07 08:37 12:33 WBC RBC Hgb Hct RDW Lymph % (Auto) [place] % (Auto) Lymph # [place] # Seg Neutrophils % Seg Neuts % (Manual) Lymphocytes % (Manual) Seg Neutrophils # Seg Neutrophils # Man Lymphocytes # (Manual) Monocytes # (Manual) D-Dimer Heparin Anti-Xa Level 0.85 H ABG pH ABG pO2 ABG HCO3 ABG O2 Saturation ABG Base Excess ABG Hemoglobin VBG pH Oxyhemoglobin Sodium Potassium Chloride Carbon Dioxide BUN Creatinine Glucose POC Glucose 182 H 187 H Lactic Acid Calcium AST Alkaline Phosphatase Lactate Dehydrogenase Total Creatine Kinase CK-MB (CK-2) C-Reactive Protein Total Protein Albumin Urine WBC (Auto) Urine Creatinine Urine Total Protein Coronavirus (PCR) 05/30/20 05/30/20 05/30/20 15:58 17:57 23:36 WBC RBC Hgb Hct RDW Lymph % (Auto) [place] % (Auto) Lymph # [place] # Seg Neutrophils % Seg Neuts % (Manual) Lymphocytes % (Manual) Seg Neutrophils # Seg Neutrophils # Man Lymphocytes # (Manual) Monocytes # (Manual) D-Dimer Heparin Anti-Xa Level 1.03 H ABG pH ABG pO2 ABG HCO3 ABG O2 Saturation ABG Base Excess ABG Hemoglobin VBG pH Oxyhemoglobin Sodium Potassium Chloride Carbon Dioxide BUN Creatinine Glucose POC Glucose 208 H 185 H Lactic Acid Calcium AST Alkaline Phosphatase Lactate Dehydrogenase Total Creatine Kinase CK-MB (CK-2) C-Reactive Protein Total Protein Albumin Urine WBC (Auto) Urine Creatinine Urine Total Protein Coronavirus (PCR) 05/31/20 05/31/20 05/31/20 02:16 03:55 06:16 WBC RBC Hgb 9.2 L Hct 27.5 L RDW Lymph % (Auto) [place] % (Auto) Lymph # [place] # Seg Neutrophils % Seg Neuts % (Manual) Lymphocytes % (Manual) Seg Neutrophils # Seg Neutrophils # Man Lymphocytes # (Manual) Monocytes # (Manual) D-Dimer Heparin Anti-Xa Level ABG pH ABG pO2 94.7 H ABG HCO3 18.6 L ABG O2 Saturation ABG Base Excess -5.5 L ABG Hemoglobin 7.9 L VBG pH Oxyhemoglobin Sodium Potassium Chloride Carbon Dioxide BUN Creatinine Glucose POC Glucose 160 H Lactic Acid Calcium AST Alkaline Phosphatase Lactate Dehydrogenase Total Creatine Kinase CK-MB (CK-2) C-Reactive Protein Total Protein Albumin Urine WBC (Auto) Urine Creatinine Urine Total Protein Coronavirus (PCR) 05/31/20 05/31/20 05/31/20 12:20 13:03 18:13 WBC RBC Hgb Hct RDW Lymph % (Auto) [place] % (Auto) Lymph # [place] # Seg Neutrophils % Seg Neuts % (Manual) Lymphocytes % (Manual) Seg Neutrophils # Seg Neutrophils # Man Lymphocytes # (Manual) Monocytes # (Manual) D-Dimer Heparin Anti-Xa Level ABG pH ABG pO2 ABG HCO3 ABG O2 Saturation ABG Base Excess ABG Hemoglobin VBG pH Oxyhemoglobin Sodium Potassium Chloride Carbon Dioxide 18 L BUN 48 H Creatinine 1.6 H Glucose 115 H POC Glucose 128 H 159 H Lactic Acid Calcium 8.3 L AST Alkaline Phosphatase Lactate Dehydrogenase Total Creatine Kinase CK-MB (CK-2) C-Reactive Protein Total Protein 5.4 L Albumin 2.4 L Urine WBC (Auto) Urine Creatinine Urine Total Protein Coronavirus (PCR) 05/31/20 06/01/20 06/01/20 23:51 04:00 05:48 WBC RBC Hgb Hct RDW Lymph % (Auto) [place] % (Auto) Lymph # [place] # Seg Neutrophils % Seg Neuts % (Manual) Lymphocytes % (Manual) Seg Neutrophils # Seg Neutrophils # Man Lymphocytes # (Manual) Monocytes # (Manual) D-Dimer Heparin Anti-Xa Level ABG pH ABG pO2 109.8 H ABG HCO3 18.8 L ABG O2 Saturation ABG Base Excess -5.9 L ABG Hemoglobin 7.8 L VBG pH Oxyhemoglobin Sodium Potassium Chloride Carbon Dioxide BUN Creatinine Glucose POC Glucose 171 H 133 H Lactic Acid Calcium AST Alkaline Phosphatase Lactate Dehydrogenase Total Creatine Kinase CK-MB (CK-2) C-Reactive Protein Total Protein Albumin Urine WBC (Auto) Urine Creatinine Urine Total Protein Coronavirus (PCR) 06/01/20 06/01/20 06/02/20 12:28 17:29 00:08 WBC RBC Hgb Hct RDW Lymph % (Auto) [place] % (Auto) Lymph # [place] # Seg Neutrophils % Seg Neuts % (Manual) Lymphocytes % (Manual) Seg Neutrophils # Seg Neutrophils # Man Lymphocytes # (Manual) Monocytes # (Manual) D-Dimer Heparin Anti-Xa Level ABG pH ABG pO2 ABG HCO3 ABG O2 Saturation ABG Base Excess ABG Hemoglobin VBG pH Oxyhemoglobin Sodium Potassium Chloride Carbon Dioxide BUN Creatinine Glucose POC Glucose 199 H 209 H 162 H Lactic Acid Calcium AST Alkaline Phosphatase Lactate Dehydrogenase Total Creatine Kinase CK-MB (CK-2) C-Reactive Protein Total Protein Albumin Urine WBC (Auto) Urine Creatinine Urine Total Protein Coronavirus (PCR) 06/02/20 06/02/20 06/02/20 04:20 04:20 04:44 WBC RBC Hgb 10.0 L Hct RDW Lymph % (Auto) [place] % (Auto) Lymph # [place] # Seg Neutrophils % Seg Neuts % (Manual) Lymphocytes % (Manual) Seg Neutrophils # Seg Neutrophils # Man Lymphocytes # (Manual) Monocytes # (Manual) D-Dimer Heparin Anti-Xa Level 0.10 L ABG pH ABG pO2 150.6 H ABG HCO3 ABG O2 Saturation ABG Base Excess -4.1 L ABG Hemoglobin 11.8 L VBG pH Oxyhemoglobin Sodium Potassium Chloride Carbon Dioxide BUN Creatinine Glucose POC Glucose Lactic Acid Calcium AST Alkaline Phosphatase Lactate Dehydrogenase Total Creatine Kinase CK-MB (CK-2) C-Reactive Protein Total Protein Albumin Urine WBC (Auto) Urine Creatinine Urine Total Protein Coronavirus (PCR) 06/02/20 06/02/20 06/02/20 05:53 12:04 13:49 WBC RBC Hgb Hct RDW Lymph % (Auto) [place] % (Auto) Lymph # [place] # Seg Neutrophils % Seg Neuts % (Manual) Lymphocytes % (Manual) Seg Neutrophils # Seg Neutrophils # Man Lymphocytes # (Manual) Monocytes # (Manual) D-Dimer Heparin Anti-Xa Level 0.28 L ABG pH ABG pO2 ABG HCO3 ABG O2 Saturation ABG Base Excess ABG Hemoglobin VBG pH Oxyhemoglobin Sodium Potassium Chloride Carbon Dioxide BUN Creatinine Glucose POC Glucose 149 H 220 H Lactic Acid Calcium AST Alkaline Phosphatase Lactate Dehydrogenase Total Creatine Kinase CK-MB (CK-2) C-Reactive Protein Total Protein Albumin Urine WBC (Auto) Urine Creatinine Urine Total Protein Coronavirus (PCR) 06/02/20 06/02/20 06/03/20 13:49 18:31 00:42 WBC RBC Hgb Hct RDW Lymph % (Auto) [place] % (Auto) Lymph # [place] # Seg Neutrophils % Seg Neuts % (Manual) Lymphocytes % (Manual) Seg Neutrophils # Seg Neutrophils # Man Lymphocytes # (Manual) Monocytes # (Manual) D-Dimer 769.68 H Heparin Anti-Xa Level ABG pH ABG pO2 ABG HCO3 ABG O2 Saturation ABG Base Excess ABG Hemoglobin VBG pH Oxyhemoglobin Sodium Potassium Chloride Carbon Dioxide BUN Creatinine Glucose POC Glucose 225 H 212 H Lactic Acid Calcium AST Alkaline Phosphatase Lactate Dehydrogenase Total Creatine Kinase CK-MB (CK-2) C-Reactive Protein Total Protein Albumin Urine WBC (Auto) Urine Creatinine Urine Total Protein Coronavirus (PCR) 06/03/20 06/03/20 06/03/20 05:16 05:16 05:25 WBC 11.4 H RBC Hgb Hct RDW 16.4 H Lymph % (Auto) [place] % (Auto) Lymph # [place] # Seg Neutrophils % Seg Neuts % (Manual) Lymphocytes % (Manual) Seg Neutrophils # Seg Neutrophils # Man Lymphocytes # (Manual) Monocytes # (Manual) D-Dimer Heparin Anti-Xa Level ABG pH ABG pO2 160.9 H ABG HCO3 19.4 L ABG O2 Saturation ABG Base Excess -4.9 L ABG Hemoglobin 7.0 L VBG pH Oxyhemoglobin Sodium Potassium Chloride Carbon Dioxide 18 L BUN 65 H Creatinine 2.0 H Glucose 175 H POC Glucose Lactic Acid Calcium 8.0 L AST Alkaline Phosphatase Lactate Dehydrogenase Total Creatine Kinase CK-MB (CK-2) C-Reactive Protein Total Protein 5.5 L Albumin 2.2 L Urine WBC (Auto) Urine Creatinine Urine Total Protein Coronavirus (PCR) 06/03/20 06/03/20 06/03/20 06:07 11:58 18:24 WBC RBC Hgb Hct RDW Lymph % (Auto) [place] % (Auto) Lymph # [place] # Seg Neutrophils % Seg Neuts % (Manual) Lymphocytes % (Manual) Seg Neutrophils # Seg Neutrophils # Man Lymphocytes # (Manual) Monocytes # (Manual) D-Dimer Heparin Anti-Xa Level ABG pH ABG pO2 ABG HCO3 ABG O2 Saturation ABG Base Excess ABG Hemoglobin VBG pH Oxyhemoglobin Sodium Potassium Chloride Carbon Dioxide BUN Creatinine Glucose POC Glucose 177 H 163 H 211 H Lactic Acid Calcium AST Alkaline Phosphatase Lactate Dehydrogenase Total Creatine Kinase CK-MB (CK-2) C-Reactive Protein Total Protein Albumin Urine WBC (Auto) Urine Creatinine Urine Total Protein Coronavirus (PCR) 06/03/20 06/03/20 06/04/20 21:50 Unknown 00:26 WBC RBC Hgb Hct RDW Lymph % (Auto) [place] % (Auto) Lymph # [place] # Seg Neutrophils % Seg Neuts % (Manual) Lymphocytes % (Manual) Seg Neutrophils # Seg Neutrophils # Man Lymphocytes # (Manual) Monocytes # (Manual) D-Dimer Heparin Anti-Xa Level ABG pH ABG pO2 ABG HCO3 ABG O2 Saturation ABG Base Excess ABG Hemoglobin VBG pH Oxyhemoglobin Sodium 135 L Potassium Chloride Carbon Dioxide 18 L BUN Creatinine Glucose POC Glucose 241 H Lactic Acid Calcium AST Alkaline Phosphatase Lactate Dehydrogenase Total Creatine Kinase CK-MB (CK-2) C-Reactive Protein Total Protein Albumin Urine WBC (Auto) 11.0 H Urine Creatinine Urine Total Protein Coronavirus (PCR) 06/04/20 06/04/20 06/04/20 03:35 04:19 04:19 WBC RBC 3.15 L Hgb 8.9 L Hct 26.8 L D RDW 15.9 H Lymph % (Auto) 6.0 L [place] % (Auto) Lymph # 0.6 L [place] # Seg Neutrophils % 86.6 H Seg Neuts % (Manual) Lymphocytes % (Manual) Seg Neutrophils # 9.1 H Seg Neutrophils # Man Lymphocytes # (Manual) Monocytes # (Manual) D-Dimer Heparin Anti-Xa Level ABG pH 7.331 L ABG pO2 ABG HCO3 ABG O2 Saturation ABG Base Excess -4.7 L ABG Hemoglobin 11.0 L VBG pH Oxyhemoglobin 93.9 L Sodium 136 L Potassium Chloride Carbon Dioxide 20 L BUN 73 H Creatinine 2.0 H Glucose 192 H POC Glucose Lactic Acid Calcium 8.0 L AST Alkaline Phosphatase Lactate Dehydrogenase 271 H Total Creatine Kinase CK-MB (CK-2) C-Reactive Protein 2.20 H Total Protein 5.0 L Albumin 2.0 L Urine WBC (Auto) Urine Creatinine Urine Total Protein Coronavirus (PCR) 06/04/20 06/04/20 06/04/20 04:19 05:51 11:48 WBC RBC Hgb Hct RDW Lymph % (Auto) [place] % (Auto) Lymph # [place] # Seg Neutrophils % Seg Neuts % (Manual) Lymphocytes % (Manual) Seg Neutrophils # Seg Neutrophils # Man Lymphocytes # (Manual) Monocytes # (Manual) D-Dimer 414.52 H Heparin Anti-Xa Level ABG pH ABG pO2 ABG HCO3 ABG O2 Saturation ABG Base Excess ABG Hemoglobin VBG pH Oxyhemoglobin Sodium Potassium Chloride Carbon Dioxide BUN Creatinine Glucose POC Glucose 179 H 213 H Lactic Acid Calcium AST Alkaline Phosphatase Lactate Dehydrogenase Total Creatine Kinase CK-MB (CK-2) C-Reactive Protein Total Protein Albumin Urine WBC (Auto) Urine Creatinine Urine Total Protein Coronavirus (PCR) 06/04/20 06/05/20 06/05/20 18:25 00:16 05:00 WBC RBC Hgb Hct RDW Lymph % (Auto) [place] % (Auto) Lymph # [place] # Seg Neutrophils % Seg Neuts % (Manual) Lymphocytes % (Manual) Seg Neutrophils # Seg Neutrophils # Man Lymphocytes # (Manual) Monocytes # (Manual) D-Dimer Heparin Anti-Xa Level ABG pH 7.286 L ABG pO2 96.2 H ABG HCO3 ABG O2 Saturation ABG Base Excess -6.3 L ABG Hemoglobin 8.8 L VBG pH Oxyhemoglobin 94.8 L Sodium Potassium Chloride Carbon Dioxide BUN Creatinine Glucose POC Glucose 238 H 183 H Lactic Acid Calcium AST Alkaline Phosphatase Lactate Dehydrogenase Total Creatine Kinase CK-MB (CK-2) C-Reactive Protein Total Protein Albumin Urine WBC (Auto) Urine Creatinine Urine Total Protein Coronavirus (PCR) 06/05/20 06/05/20 06/05/20 05:39 07:25 07:25 WBC RBC 2.97 L Hgb 8.7 L Hct 25.7 L RDW 16.0 H Lymph % (Auto) 8.8 L [place] % (Auto) 13.3 H Lymph # 0.8 L [place] # 1.3 H Seg Neutrophils % 77.3 H Seg Neuts % (Manual) Lymphocytes % (Manual) Seg Neutrophils # Seg Neutrophils # Man Lymphocytes # (Manual) Monocytes # (Manual) D-Dimer Heparin Anti-Xa Level ABG pH ABG pO2 ABG HCO3 ABG O2 Saturation ABG Base Excess ABG Hemoglobin VBG pH Oxyhemoglobin Sodium 133 L Potassium Chloride Carbon Dioxide 17 L BUN 89 H Creatinine 2.8 H Glucose 176 H POC Glucose 149 H Lactic Acid Calcium 7.7 L AST Alkaline Phosphatase Lactate Dehydrogenase Total Creatine Kinase CK-MB (CK-2) C-Reactive Protein Total Protein 4.2 L Albumin 1.9 L Urine WBC (Auto) Urine Creatinine Urine Total Protein Coronavirus (PCR) 06/05/20 06/05/20 06/05/20 07:25 12:05 15:41 WBC RBC Hgb Hct RDW Lymph % (Auto) [place] % (Auto) Lymph # [place] # Seg Neutrophils % Seg Neuts % (Manual) Lymphocytes % (Manual) Seg Neutrophils # Seg Neutrophils # Man Lymphocytes # (Manual) Monocytes # (Manual) D-Dimer Heparin Anti-Xa Level 0.76 H 0.81 H ABG pH ABG pO2 ABG HCO3 ABG O2 Saturation ABG Base Excess ABG Hemoglobin VBG pH Oxyhemoglobin Sodium Potassium Chloride Carbon Dioxide BUN Creatinine Glucose POC Glucose 198 H Lactic Acid Calcium AST Alkaline Phosphatase Lactate Dehydrogenase Total Creatine Kinase CK-MB (CK-2) C-Reactive Protein Total Protein Albumin Urine WBC (Auto) Urine Creatinine Urine Total Protein Coronavirus (PCR) 06/05/20 06/05/20 06/06/20 18:08 23:25 04:00 WBC RBC Hgb Hct RDW Lymph % (Auto) [place] % (Auto) Lymph # [place] # Seg Neutrophils % Seg Neuts % (Manual) Lymphocytes % (Manual) Seg Neutrophils # Seg Neutrophils # Man Lymphocytes # (Manual) Monocytes # (Manual) D-Dimer Heparin Anti-Xa Level ABG pH ABG pO2 ABG HCO3 ABG O2 Saturation ABG Base Excess ABG Hemoglobin VBG pH Oxyhemoglobin Sodium Potassium Chloride Carbon Dioxide BUN Creatinine Glucose POC Glucose 223 H 169 H Lactic Acid Calcium AST Alkaline Phosphatase Lactate Dehydrogenase Total Creatine Kinase CK-MB (CK-2) C-Reactive Protein Total Protein Albumin Urine WBC (Auto) 15.0 H Urine Creatinine Urine Total Protein Coronavirus (PCR) 06/06/20 06/06/20 06/06/20 04:00 05:33 05:38 WBC RBC 2.97 L Hgb 8.7 L Hct 26.8 L RDW 16.8 H Lymph % (Auto) [place] % (Auto) Lymph # [place] # Seg Neutrophils % Seg Neuts % (Manual) Lymphocytes % (Manual) Seg Neutrophils # Seg Neutrophils # Man Lymphocytes # (Manual) Monocytes # (Manual) D-Dimer Heparin Anti-Xa Level ABG pH ABG pO2 ABG HCO3 ABG O2 Saturation ABG Base Excess ABG Hemoglobin VBG pH Oxyhemoglobin Sodium Potassium Chloride Carbon Dioxide BUN Creatinine Glucose POC Glucose 186 H Lactic Acid Calcium AST Alkaline Phosphatase Lactate Dehydrogenase Total Creatine Kinase CK-MB (CK-2) C-Reactive Protein Total Protein Albumin Urine WBC (Auto) Urine Creatinine 82.2 H Urine Total Protein 196 H Coronavirus (PCR) 06/06/20 06/06/20 06/06/20 05:38 12:25 17:03 WBC RBC Hgb Hct RDW Lymph % (Auto) [place] % (Auto) Lymph # [place] # Seg Neutrophils % Seg Neuts % (Manual) Lymphocytes % (Manual) Seg Neutrophils # Seg Neutrophils # Man Lymphocytes # (Manual) Monocytes # (Manual) D-Dimer Heparin Anti-Xa Level ABG pH ABG pO2 ABG HCO3 ABG O2 Saturation ABG Base Excess ABG Hemoglobin VBG pH Oxyhemoglobin Sodium 134 L Potassium 5.2 H Chloride Carbon Dioxide 18 L BUN 97 H Creatinine 2.5 H Glucose 193 H POC Glucose 239 H 252 H Lactic Acid Calcium 7.5 L AST Alkaline Phosphatase Lactate Dehydrogenase Total Creatine Kinase CK-MB (CK-2) C-Reactive Protein Total Protein 4.1 L Albumin 1.9 L Urine WBC (Auto) Urine Creatinine Urine Total Protein Coronavirus (PCR) 06/07/20 06/07/20 06/07/20 00:16 01:49 04:00 WBC RBC 2.91 L Hgb 8.4 L Hct 25.0 L RDW 16.1 H Lymph % (Auto) 5.7 L [place] % (Auto) 10.5 H Lymph # 0.6 L [place] # 1.1 H Seg Neutrophils % 83.6 H Seg Neuts % (Manual) Lymphocytes % (Manual) Seg Neutrophils # 9.1 H Seg Neutrophils # Man Lymphocytes # (Manual) Monocytes # (Manual) D-Dimer Heparin Anti-Xa Level 0.26 L ABG pH ABG pO2 ABG HCO3 ABG O2 Saturation ABG Base Excess ABG Hemoglobin VBG pH Oxyhemoglobin Sodium Potassium Chloride Carbon Dioxide BUN Creatinine Glucose POC Glucose 173 H Lactic Acid Calcium AST Alkaline Phosphatase Lactate Dehydrogenase Total Creatine Kinase CK-MB (CK-2) C-Reactive Protein Total Protein Albumin Urine WBC (Auto) Urine Creatinine Urine Total Protein Coronavirus (PCR) 06/07/20 06/07/20 06/07/20 04:00 04:54 05:51 WBC RBC Hgb Hct RDW Lymph % (Auto) [place] % (Auto) Lymph # [place] # Seg Neutrophils % Seg Neuts % (Manual) Lymphocytes % (Manual) Seg Neutrophils # Seg Neutrophils # Man Lymphocytes # (Manual) Monocytes # (Manual) D-Dimer Heparin Anti-Xa Level ABG pH 7.317 L ABG pO2 71.4 L ABG HCO3 ABG O2 Saturation 94.3 L ABG Base Excess -4.8 L ABG Hemoglobin 7.1 L VBG pH Oxyhemoglobin 92.2 L Sodium 133 L Potassium Chloride Carbon Dioxide 18 L BUN 100 H Creatinine 2.5 H Glucose 158 H POC Glucose 168 H Lactic Acid Calcium 7.6 L AST Alkaline Phosphatase Lactate Dehydrogenase Total Creatine Kinase CK-MB (CK-2) C-Reactive Protein Total Protein 4.7 L Albumin 2.0 L Urine WBC (Auto) Urine Creatinine Urine Total Protein Coronavirus (PCR) 06/07/20 06/07/20 06/07/20 12:03 17:17 20:10 WBC RBC Hgb Hct RDW Lymph % (Auto) [place] % (Auto) Lymph # [place] # Seg Neutrophils % Seg Neuts % (Manual) Lymphocytes % (Manual) Seg Neutrophils # Seg Neutrophils # Man Lymphocytes # (Manual) Monocytes # (Manual) D-Dimer Heparin Anti-Xa Level 0.17 L ABG pH ABG pO2 ABG HCO3 ABG O2 Saturation ABG Base Excess ABG Hemoglobin VBG pH Oxyhemoglobin Sodium Potassium Chloride Carbon Dioxide BUN Creatinine Glucose POC Glucose 276 H 281 H Lactic Acid Calcium AST Alkaline Phosphatase Lactate Dehydrogenase Total Creatine Kinase CK-MB (CK-2) C-Reactive Protein Total Protein Albumin Urine WBC (Auto) Urine Creatinine Urine Total Protein Coronavirus (PCR) 06/08/20 06/08/20 06/08/20 00:02 04:47 04:47 WBC 16.4 H RBC 3.07 L Hgb 8.6 L Hct 26.5 L RDW 16.3 H Lymph % (Auto) [place] % (Auto) Lymph # [place] # Seg Neutrophils % Seg Neuts % (Manual) 90.0 H Lymphocytes % (Manual) 3.0 L Seg Neutrophils # Seg Neutrophils # Man 14.8 H Lymphocytes # (Manual) 0.5 L Monocytes # (Manual) 1.1 H D-Dimer Heparin Anti-Xa Level ABG pH ABG pO2 ABG HCO3 ABG O2 Saturation ABG Base Excess ABG Hemoglobin VBG pH Oxyhemoglobin Sodium 129 L Potassium Chloride 95.6 L Carbon Dioxide 17 L BUN 106 H Creatinine 2.5 H Glucose 213 H POC Glucose 242 H Lactic Acid Calcium 7.6 L AST Alkaline Phosphatase Lactate Dehydrogenase Total Creatine Kinase CK-MB (CK-2) C-Reactive Protein Total Protein 5.0 L Albumin 2.1 L Urine WBC (Auto) Urine Creatinine Urine Total Protein Coronavirus (PCR) 06/08/20 06/08/20 06/08/20 05:40 11:55 17:54 WBC RBC Hgb Hct RDW Lymph % (Auto) [place] % (Auto) Lymph # [place] # Seg Neutrophils % Seg Neuts % (Manual) Lymphocytes % (Manual) Seg Neutrophils # Seg Neutrophils # Man Lymphocytes # (Manual) Monocytes # (Manual) D-Dimer Heparin Anti-Xa Level ABG pH ABG pO2 ABG HCO3 ABG O2 Saturation ABG Base Excess ABG Hemoglobin VBG pH Oxyhemoglobin Sodium Potassium Chloride Carbon Dioxide BUN Creatinine Glucose POC Glucose 221 H 218 H 163 H Lactic Acid Calcium AST Alkaline Phosphatase Lactate Dehydrogenase Total Creatine Kinase CK-MB (CK-2) C-Reactive Protein Total Protein Albumin Urine WBC (Auto) Urine Creatinine Urine Total Protein Coronavirus (PCR) 06/08/20 06/09/20 06/09/20 22:01 00:09 05:16 WBC 19.0 H RBC 3.35 L Hgb 9.2 L Hct 28.5 L RDW 16.3 H Lymph % (Auto) [place] % (Auto) Lymph # [place] # Seg Neutrophils % Seg Neuts % (Manual) 85.0 H Lymphocytes % (Manual) 7.0 L Seg Neutrophils # Seg Neutrophils # Man 16.2 H Lymphocytes # (Manual) Monocytes # (Manual) 1.3 H D-Dimer Heparin Anti-Xa Level ABG pH ABG pO2 ABG HCO3 ABG O2 Saturation ABG Base Excess ABG Hemoglobin VBG pH Oxyhemoglobin Sodium Potassium Chloride Carbon Dioxide BUN Creatinine Glucose POC Glucose 182 H 150 H Lactic Acid Calcium AST Alkaline Phosphatase Lactate Dehydrogenase Total Creatine Kinase CK-MB (CK-2) C-Reactive Protein Total Protein Albumin Urine WBC (Auto) Urine Creatinine Urine Total Protein Coronavirus (PCR) 06/09/20 06/09/20 06/09/20 05:16 05:24 11:29 WBC RBC Hgb Hct RDW Lymph % (Auto) [place] % (Auto) Lymph # [place] # Seg Neutrophils % Seg Neuts % (Manual) Lymphocytes % (Manual) Seg Neutrophils # Seg Neutrophils # Man Lymphocytes # (Manual) Monocytes # (Manual) D-Dimer Heparin Anti-Xa Level ABG pH ABG pO2 ABG HCO3 ABG O2 Saturation ABG Base Excess ABG Hemoglobin VBG pH Oxyhemoglobin Sodium 133 L Potassium Chloride Carbon Dioxide 19 L BUN 109 H Creatinine 2.1 H Glucose 133 H POC Glucose 128 H 119 H Lactic Acid Calcium 7.7 L AST Alkaline Phosphatase < 5 L Lactate Dehydrogenase Total Creatine Kinase CK-MB (CK-2) C-Reactive Protein Total Protein 4.6 L Albumin < 0.2 L Urine WBC (Auto) Urine Creatinine Urine Total Protein Coronavirus (PCR) 06/09/20 06/10/20 06/10/20 17:32 00:00 05:49 WBC RBC Hgb Hct RDW Lymph % (Auto) [place] % (Auto) Lymph # [place] # Seg Neutrophils % Seg Neuts % (Manual) Lymphocytes % (Manual) Seg Neutrophils # Seg Neutrophils # Man Lymphocytes # (Manual) Monocytes # (Manual) D-Dimer Heparin Anti-Xa Level 0.19 L ABG pH ABG pO2 ABG HCO3 ABG O2 Saturation ABG Base Excess ABG Hemoglobin VBG pH Oxyhemoglobin Sodium Potassium Chloride Carbon Dioxide BUN Creatinine Glucose POC Glucose 106 H 117 H Lactic Acid Calcium AST Alkaline Phosphatase Lactate Dehydrogenase Total Creatine Kinase CK-MB (CK-2) C-Reactive Protein Total Protein Albumin Urine WBC (Auto) Urine Creatinine Urine Total Protein Coronavirus (PCR) 06/10/20 06/10/20 06/10/20 05:54 07:40 11:40 WBC RBC Hgb Hct RDW Lymph % (Auto) [place] % (Auto) Lymph # [place] # Seg Neutrophils % Seg Neuts % (Manual) Lymphocytes % (Manual) Seg Neutrophils # Seg Neutrophils # Man Lymphocytes # (Manual) Monocytes # (Manual) D-Dimer Heparin Anti-Xa Level ABG pH ABG pO2 ABG HCO3 ABG O2 Saturation ABG Base Excess ABG Hemoglobin VBG pH Oxyhemoglobin Sodium 146 H D Potassium Chloride Carbon Dioxide 20 L BUN 99 H Creatinine 1.9 H Glucose 121 H POC Glucose 127 H 138 H Lactic Acid Calcium 8.2 L AST Alkaline Phosphatase Lactate Dehydrogenase Total Creatine Kinase CK-MB (CK-2) C-Reactive Protein Total Protein Albumin Urine WBC (Auto) Urine Creatinine Urine Total Protein Coronavirus (PCR) 06/10/20 06/10/20 06/10/20 14:44 17:31 23:22 WBC RBC Hgb Hct RDW Lymph % (Auto) [place] % (Auto) Lymph # [place] # Seg Neutrophils % Seg Neuts % (Manual) Lymphocytes % (Manual) Seg Neutrophils # Seg Neutrophils # Man Lymphocytes # (Manual) Monocytes # (Manual) D-Dimer Heparin Anti-Xa Level 0.17 L ABG pH ABG pO2 ABG HCO3 ABG O2 Saturation ABG Base Excess ABG Hemoglobin VBG pH Oxyhemoglobin Sodium Potassium Chloride Carbon Dioxide BUN Creatinine Glucose POC Glucose 128 H 114 H Lactic Acid Calcium AST Alkaline Phosphatase Lactate Dehydrogenase Total Creatine Kinase CK-MB (CK-2) C-Reactive Protein Total Protein Albumin Urine WBC (Auto) Urine Creatinine Urine Total Protein Coronavirus (PCR) 06/11/20 06/11/20 06/11/20 00:22 03:45 03:45 WBC 14.6 H RBC 2.77 L Hgb 7.9 L Hct 24.3 L RDW 16.8 H Lymph % (Auto) 6.6 L [place] % (Auto) 8.5 H Lymph # 1.0 L [place] # 1.2 H Seg Neutrophils % 82.9 H Seg Neuts % (Manual) Lymphocytes % (Manual) Seg Neutrophils # 12.1 H Seg Neutrophils # Man Lymphocytes # (Manual) Monocytes # (Manual) D-Dimer Heparin Anti-Xa Level 0.24 L ABG pH ABG pO2 ABG HCO3 ABG O2 Saturation ABG Base Excess ABG Hemoglobin VBG pH Oxyhemoglobin Sodium Potassium Chloride Carbon Dioxide 20 L BUN 88 H Creatinine 1.5 H Glucose 111 H POC Glucose Lactic Acid Calcium 8.2 L AST Alkaline Phosphatase Lactate Dehydrogenase Total Creatine Kinase CK-MB (CK-2) C-Reactive Protein Total Protein Albumin Urine WBC (Auto) Urine Creatinine Urine Total Protein Coronavirus (PCR) 06/11/20 06/11/20 06/11/20 06:03 10:22 11:11 WBC RBC Hgb Hct RDW Lymph % (Auto) [place] % (Auto) Lymph # [place] # Seg Neutrophils % Seg Neuts % (Manual) Lymphocytes % (Manual) Seg Neutrophils # Seg Neutrophils # Man Lymphocytes # (Manual) Monocytes # (Manual) D-Dimer Heparin Anti-Xa Level 0.26 L ABG pH ABG pO2 ABG HCO3 ABG O2 Saturation ABG Base Excess ABG Hemoglobin 9.6 L VBG pH Oxyhemoglobin Sodium Potassium Chloride Carbon Dioxide BUN Creatinine Glucose POC Glucose 114 H Lactic Acid Calcium AST Alkaline Phosphatase Lactate Dehydrogenase Total Creatine Kinase CK-MB (CK-2) C-Reactive Protein Total Protein Albumin Urine WBC (Auto) Urine Creatinine Urine Total Protein Coronavirus (PCR) 06/11/20 06/11/20 06/12/20 12:24 17:24 00:21 WBC RBC Hgb Hct RDW Lymph % (Auto) [place] % (Auto) Lymph # [place] # Seg Neutrophils % Seg Neuts % (Manual) Lymphocytes % (Manual) Seg Neutrophils # Seg Neutrophils # Man Lymphocytes # (Manual) Monocytes # (Manual) D-Dimer Heparin Anti-Xa Level ABG pH ABG pO2 ABG HCO3 ABG O2 Saturation ABG Base Excess ABG Hemoglobin VBG pH Oxyhemoglobin Sodium Potassium Chloride Carbon Dioxide BUN Creatinine Glucose POC Glucose 119 H 126 H 117 H Lactic Acid Calcium AST Alkaline Phosphatase Lactate Dehydrogenase Total Creatine Kinase CK-MB (CK-2) C-Reactive Protein Total Protein Albumin Urine WBC (Auto) Urine Creatinine Urine Total Protein Coronavirus (PCR) 06/12/20 06/12/20 06/12/20 02:46 02:46 05:46 WBC 13.2 H RBC 2.83 L Hgb 8.3 L Hct 24.3 L RDW 16.6 H Lymph % (Auto) 6.2 L [place] % (Auto) 9.5 H Lymph # 0.8 L [place] # 1.3 H Seg Neutrophils % 81.9 H Seg Neuts % (Manual) Lymphocytes % (Manual) Seg Neutrophils # 10.9 H Seg Neutrophils # Man Lymphocytes # (Manual) Monocytes # (Manual) D-Dimer Heparin Anti-Xa Level ABG pH ABG pO2 ABG HCO3 ABG O2 Saturation ABG Base Excess ABG Hemoglobin VBG pH Oxyhemoglobin Sodium Potassium 3.5 L Chloride Carbon Dioxide BUN 77 H Creatinine 1.3 H Glucose POC Glucose 132 H Lactic Acid Calcium 8.3 L AST Alkaline Phosphatase Lactate Dehydrogenase Total Creatine Kinase CK-MB (CK-2) C-Reactive Protein Total Protein Albumin Urine WBC (Auto) Urine Creatinine Urine Total Protein Coronavirus (PCR) 06/12/20 06/12/20 06/12/20 09:20 12:16 17:48 WBC RBC Hgb Hct RDW Lymph % (Auto) [place] % (Auto) Lymph # [place] # Seg Neutrophils % Seg Neuts % (Manual) Lymphocytes % (Manual) Seg Neutrophils # Seg Neutrophils # Man Lymphocytes # (Manual) Monocytes # (Manual) D-Dimer Heparin Anti-Xa Level ABG pH ABG pO2 91.1 H ABG HCO3 ABG O2 Saturation ABG Base Excess ABG Hemoglobin VBG pH Oxyhemoglobin 94.8 L Sodium Potassium Chloride Carbon Dioxide BUN Creatinine Glucose POC Glucose 167 H 182 H Lactic Acid Calcium AST Alkaline Phosphatase Lactate Dehydrogenase Total Creatine Kinase CK-MB (CK-2) C-Reactive Protein Total Protein Albumin Urine WBC (Auto) Urine Creatinine Urine Total Protein Coronavirus (PCR) 06/13/20 06/13/20 06/13/20 00:08 05:37 09:09 WBC RBC Hgb Hct RDW Lymph % (Auto) [place] % (Auto) Lymph # [place] # Seg Neutrophils % Seg Neuts % (Manual) Lymphocytes % (Manual) Seg Neutrophils # Seg Neutrophils # Man Lymphocytes # (Manual) Monocytes # (Manual) D-Dimer Heparin Anti-Xa Level 0.86 H ABG pH ABG pO2 ABG HCO3 ABG O2 Saturation ABG Base Excess ABG Hemoglobin VBG pH Oxyhemoglobin Sodium Potassium Chloride Carbon Dioxide BUN Creatinine Glucose POC Glucose 142 H 119 H Lactic Acid Calcium AST Alkaline Phosphatase Lactate Dehydrogenase Total Creatine Kinase CK-MB (CK-2) C-Reactive Protein Total Protein Albumin Urine WBC (Auto) Urine Creatinine Urine Total Protein Coronavirus (PCR) Chest x-ray: pending Allied health notes reviewed: RT
[2020-06-13] MEDS: QUEtiapine 100 MG TAB PO SCH (22:04)
[2020-06-13] MEDS: INSULIN GLARGINE 100 UNITS/ML SUB-Q SCH (22:06)
[2020-06-13 22:37] LABS: Calcium 8.8 mg/dL (8.4-10.2)
[2020-06-14] MEDS: INSULIN LISPRO 100 UNIT/ML VIAL 3 mL SUB-Q SCH ×5 (00:15→23:48)
[2020-06-14] MEDS: HEPARIN/ 0.45% NACL DRIP 25,000 UNIT/500 ML BAG IV SCH ×3 (00:19→16:33)
[2020-06-14] MEDS: cloNIDine 0.2 MG TAB PO SCH ×3 (05:39→21:02)
[2020-06-14] MEDS: hydrALAZINE 25 MG TAB PO SCH ×3 (05:40→21:02)
[2020-06-14] MEDS: cloNIDine 0.1 MG TAB PO SCH ×3 (05:40→21:01)
[2020-06-14] MEDS: METOCLOPRAMIDE 10 MG/2 ML INJ IV SCH ×4 (05:41→20:14)
[2020-06-14] MEDS: FUROSEMIDE 40 MG/4 ML INJ IV SCH ×2 (05:42→07:27)
[2020-06-14 06:46] LABS: Calcium 8.5 mg/dL (8.4-10.2)
[2020-06-14] MEDS: LANSOPRAZOLE 30 MG SOLUTAB FEEDTUBE SCH ×3 (07:27→21:03)
[2020-06-14] MEDS: amLODIPine 10 MG TAB PO SCH (09:41)
[2020-06-14] MEDS: levETIRAcetam 500 MG TAB PO SCH ×2 (09:41→21:02)
[2020-06-14] MEDS: GLYCOPYRROLATE 2 MG TAB PO SCH ×3 (09:41→20:14)
[2020-06-14] MEDS: SCOPOLAMINE TRANSDERMAL PATCH 72 HR TD SCH (09:42)
[2020-06-14] MEDS: SODIUM BICARBONATE 650 MG TAB PO SCH ×2 (09:42→21:03)
[2020-06-14] MEDS: carvediloL 12.5 MG TAB PO SCH ×2 (09:42→21:02)
[2020-06-14] MEDS: CEFEPIME/NS 2 GM/100 ML 2 GM/100 ML BAG IV SCH ×2 (09:42→21:04)
[2020-06-14] MEDS: SENNOSIDES ORAL LIQD 8.8 MG/5 ML ORAL LIQD FEEDTUBE SCH ×2 (09:45→23:30)
--- NOTE | 2020-06-14 11:47 | Progress Note ---
Assessment and Plan Acute hypoxemic respiratory failure s/p MVS Severe COVID infection Multifocal pneumonia Morbid obesity Acute toxic metabolic encephalopathy AVANI secondary to COVID/vasomotor nephropathy Bilateral pulmonary edema. Bilateral pleural effusions. History of congestive heart failure. Morbid obesity. History of pulmonary hypertension. History of hypertension. Diabetes. Obesity hypoventilation syndrome. Elevated serum inflammatory markers to include D-dimers and LDH levels. AVANI Metabolic acidosis. Oropharyngeal dysphagia. -Hold Lasix, has hypernatremia -Transition to BIPAP qhs and HFOT during the day -Incentive spirometry -Wean supplemental oxygen to keep O2 sats >90% -Increase free water flushes -PT/OT, increase activity -Enteric nutrition with glycemic control, aspiration precautions -Decrease night time Seroquel dosing - continue bronchodilators with pulmonary hygiene per RT - continue to avoid benzodiazepines, reduce the possibility of delirium - conservative fluid management measures as tolerated by hemodynamics and renal function - Bronchodilators with pulmonary hygiene per RT -Monitor off antibiotics - Accuchecks with glycemic control per SSI (While critically ill target blood glucose of 140-180 mg/dL; avoid hypoglycemia) - Maintenance of sleep-wake cycle, avoid delirium - Avoid nephrotoxins, closely monitor renal function, dose all medications for renal function - Stress ulcer prophylaxis -Famotidine - Mobility protocol, off loading and skin assessment for pressure ulcer prevention - Monitor hemodynamics closely - Supportive transfusions as indicated to keep HgB >7g/dL COVID SPECIFIC INTERVENTIONS -Airborne, contact isolation for COVID per facility protocols - s/p Remdesivir -IV steroids-Dexamethasone -Trend d-dimer,and other inflammatory markers per facility protocol -Convalescent plasma therapy per facility protocol -Continue all supportive care Discussed with the ICU team-RT,RN, Life threatening condition- COVID 19 ARDS acute hypoxemic respiratory failure s/p MVS Mortality/Morbidity- High Complexity of medical decision making- High CONDITION: CRITICAL PROGNOSIS: GUARDED CODE STATUS: FULL CODE The high probability of a clinically significant, sudden or life-threatening deterioration of the [respiratory & neurology, renal ] system(s) required my full and direct attention, intervention and personal management. The aggregate critical care time was [30] minutes without overlap. Time includes spent on; [x] Data Review and interpretation [x] Patient assessment and monitoring of vital signs [x] Documentation [x] Medication orders and management Subjective Date of service: 06/14/20 Principal diagnosis: Ac hypoxemic resp failure; COVID-19; pneumonia; CHF; Pulm HTN; OHS; DM II Interval history: Patient is seen today for: Ac hypoxemic resp failure; Coronavirus-19 infection; pneumonia; Pulmonary edema; Bilateral pleural effusions; CHF; Morbid obesity; pulmonary hypertension; OHS; DM II Seen and examined at bedside; 24hour events reviewed; nursing and respiratory care staff consulted; no adverse overnight events reported to me; resting peacefully in bed; extubated but requiring BIPAP support, looks comfortable on BIPAP this morning. No overnight fevers, no vomiting. Objective Vital Signs - 12hr 06/13/20 06/14/20 06/14/20 23:55 00:00 00:29 Temperature 98.8 F Pulse Rate 78 77 Pulse Rate [ 73 From Monitor] Respiratory 18 21 Rate Blood Pressure 119/47 112/52 O2 Sat by Pulse 98 98 Oximetry 06/14/20 06/14/20 06/14/20 00:30 01:00 01:30 Temperature Pulse Rate 77 77 72 Pulse Rate [ From Monitor] Respiratory 13 12 13 Rate Blood Pressure 112/52 134/49 134/49 O2 Sat by Pulse 98 99 99 Oximetry 06/14/20 06/14/20 06/14/20 02:00 02:30 03:00 Temperature Pulse Rate 73 72 73 Pulse Rate [ From Monitor] Respiratory 12 11 L 11 L Rate Blood Pressure 132/50 133/50 137/50 O2 Sat by Pulse 99 98 100 Oximetry 06/14/20 06/14/20 06/14/20 03:30 03:45 04:00 Temperature 100.1 F H Pulse Rate 69 72 Pulse Rate [ 73 From Monitor] Respiratory 13 13 Rate Blood Pressure 121/45 127/52 O2 Sat by Pulse 99 100 Oximetry 06/14/20 06/14/20 06/14/20 04:30 05:00 05:30 Temperature Pulse Rate 68 66 68 Pulse Rate [ From Monitor] Respiratory 13 15 13 Rate Blood Pressure 130/49 130/49 126/49 O2 Sat by Pulse 100 100 100 Oximetry 06/14/20 06/14/20 06/14/20 05:39 06:00 06:30 Temperature Pulse Rate 73 67 Pulse Rate [ From Monitor] Respiratory 16 15 Rate Blood Pressure 126/49 125/49 125/49 O2 Sat by Pulse 99 100 Oximetry 06/14/20 06/14/20 06/14/20 07:00 07:30 08:00 Temperature 98.2 F Pulse Rate 65 65 71 Pulse Rate [ 81 From Monitor] Respiratory 16 16 16 Rate Blood Pressure 105/44 108/42 108/42 O2 Sat by Pulse 100 100 100 Oximetry 06/14/20 06/14/20 06/14/20 08:30 08:50 09:00 Temperature Pulse Rate 68 64 68 Pulse Rate [ From Monitor] Respiratory 10 L 22 15 Rate Blood Pressure 122/47 122/47 117/47 O2 Sat by Pulse 100 100 100 Oximetry 06/14/20 06/14/20 06/14/20 09:30 09:41 09:42 Temperature Pulse Rate 66 66 66 Pulse Rate [ From Monitor] Respiratory 12 Rate Blood Pressure 117/47 121/49 121/49 O2 Sat by Pulse 100 Oximetry 06/14/20 06/14/20 06/14/20 10:00 10:20 10:30 Temperature Pulse Rate 68 71 Pulse Rate [ From Monitor] Respiratory 15 12 Rate Blood Pressure 121/49 117/43 O2 Sat by Pulse 100 96 96 Oximetry 06/14/20 11:00 Temperature Pulse Rate 65 Pulse Rate [ From Monitor] Respiratory 17 Rate Blood Pressure 99/47 O2 Sat by Pulse 95 Oximetry Constitutional: no acute distress, other (elderly looking obese female on BIPAP) Eyes: non-icteric ENT: other (on BIPAP with FFM) Neck: supple, no lymphadenopathy, no JVD, other (large neck circumference) Effort: normal Ascultation: Bilateral: clear, diminished breath sounds, rhonchi Percussion: Bilateral: not dull Cardiovascular: regular rate and rhythm, other (S1,S2) Gastrointestinal: normoactive bowel sounds, soft, non-tender, non-distended Integumentary: normal Extremities: no cyanosis, no edema, pink and warm, pulses normal, no ischemia or petechiae Neurologic: normal mental status, non-focal exam (grossly), pupils equal and round, motor strength normal and Psychiatric: mood appropriate, affect normal CBC and BMP: 06/12/20 02:46 06/14/20 05:34 ABG, PT/INR, D-dimer: ABG ABG pH 7.409 pH Units (7.350-7.450) 06/12/20 09:20 POC ABG pCO2 37.4 mmHg (32.0-48.0) 06/11/20 11:11 ABG pCO2 42.0 mm Hg 06/12/20 09:20 POC ABG pO2 101.9 mmHg (83-108) 06/11/20 11:11 ABG pO2 91.1 mm Hg (80.0-90.0) H 06/12/20 09:20 ABG O2 Saturation 97.0 % (95.0-99.0) 06/12/20 09:20 PT/INR, D-dimer PT 14.2 Sec. (12.2-14.9) 05/29/20 15:10 INR 1.08 (0.87-1.13) 05/29/20 15:10 D-Dimer 414.52 ng/mlDDU (0-234) H 06/04/20 04:19 Abnormal lab findings: Abnormal Labs 05/28/20 05/28/20 05/28/20 13:29 13:47 13:47 WBC RBC Hgb Hct RDW 15.3 H Lymph % (Auto) [place] % (Auto) Lymph # [place] # Seg Neutrophils % Seg Neuts % (Manual) Lymphocytes % (Manual) Seg Neutrophils # Seg Neutrophils # Man Lymphocytes # (Manual) Monocytes # (Manual) D-Dimer Heparin Anti-Xa Level ABG pH ABG pO2 ABG HCO3 ABG O2 Saturation ABG Base Excess ABG Hemoglobin VBG pH Oxyhemoglobin Sodium Potassium 6.6 H* Chloride 109.2 H Carbon Dioxide 17 L BUN 29 H Creatinine 1.3 H Glucose 265 H POC Glucose 248 H Lactic Acid Calcium 8.1 L AST 63 H Alkaline Phosphatase Lactate Dehydrogenase Total Creatine Kinase 301 H CK-MB (CK-2) 4.3 H C-Reactive Protein Total Protein 5.4 L Albumin 2.6 L Urine WBC (Auto) Urine Creatinine Urine Total Protein Coronavirus (PCR) 05/28/20 05/28/20 05/28/20 13:47 13:47 14:46 WBC RBC Hgb Hct RDW Lymph % (Auto) [place] % (Auto) Lymph # [place] # Seg Neutrophils % Seg Neuts % (Manual) Lymphocytes % (Manual) Seg Neutrophils # Seg Neutrophils # Man Lymphocytes # (Manual) Monocytes # (Manual) D-Dimer Heparin Anti-Xa Level ABG pH ABG pO2 ABG HCO3 ABG O2 Saturation ABG Base Excess ABG Hemoglobin VBG pH 7.152 L* Oxyhemoglobin Sodium Potassium 7.2 H* Chloride Carbon Dioxide BUN Creatinine Glucose POC Glucose Lactic Acid 3.40 H* Calcium AST Alkaline Phosphatase Lactate Dehydrogenase Total Creatine Kinase CK-MB (CK-2) C-Reactive Protein Total Protein Albumin Urine WBC (Auto) Urine Creatinine Urine Total Protein Coronavirus (PCR) 05/28/20 05/28/20 05/28/20 15:33 15:33 15:51 WBC RBC Hgb Hct RDW Lymph % (Auto) [place] % (Auto) Lymph # [place] # Seg Neutrophils % Seg Neuts % (Manual) Lymphocytes % (Manual) Seg Neutrophils # Seg Neutrophils # Man Lymphocytes # (Manual) Monocytes # (Manual) D-Dimer 8780.43 H Heparin Anti-Xa Level ABG pH 7.284 L ABG pO2 273.0 H ABG HCO3 ABG O2 Saturation 99.4 H ABG Base Excess -6.1 L ABG Hemoglobin 17.2 H VBG pH Oxyhemoglobin Sodium Potassium Chloride Carbon Dioxide BUN Creatinine Glucose 152 H POC Glucose Lactic Acid Calcium AST Alkaline Phosphatase Lactate Dehydrogenase 365 H Total Creatine Kinase CK-MB (CK-2) C-Reactive Protein Total Protein Albumin Urine WBC (Auto) Urine Creatinine Urine Total Protein Coronavirus (PCR) 05/28/20 05/28/20 05/28/20 16:30 20:41 23:20 WBC RBC Hgb Hct RDW Lymph % (Auto) [place] % (Auto) Lymph # [place] # Seg Neutrophils % Seg Neuts % (Manual) Lymphocytes % (Manual) Seg Neutrophils # Seg Neutrophils # Man Lymphocytes # (Manual) Monocytes # (Manual) D-Dimer Heparin Anti-Xa Level ABG pH ABG pO2 ABG HCO3 ABG O2 Saturation ABG Base Excess ABG Hemoglobin VBG pH Oxyhemoglobin Sodium Potassium Chloride Carbon Dioxide BUN Creatinine Glucose POC Glucose 225 H 224 H Lactic Acid Calcium AST Alkaline Phosphatase Lactate Dehydrogenase Total Creatine Kinase CK-MB (CK-2) C-Reactive Protein Total Protein Albumin Urine WBC (Auto) 17.0 H Urine Creatinine Urine Total Protein Coronavirus (PCR) 05/28/20 05/29/20 05/29/20 Unknown 04:35 04:43 WBC RBC 3.48 L Hgb 9.8 L Hct 29.4 L RDW 16.0 H Lymph % (Auto) 7.4 L [place] % (Auto) Lymph # 0.7 L [place] # Seg Neutrophils % 89.1 H Seg Neuts % (Manual) Lymphocytes % (Manual) Seg Neutrophils # 8.1 H Seg Neutrophils # Man Lymphocytes # (Manual) Monocytes # (Manual) D-Dimer Heparin Anti-Xa Level ABG pH ABG pO2 ABG HCO3 19.3 L ABG O2 Saturation ABG Base Excess -4.5 L ABG Hemoglobin 9.7 L VBG pH Oxyhemoglobin Sodium Potassium Chloride Carbon Dioxide BUN Creatinine Glucose POC Glucose Lactic Acid Calcium AST Alkaline Phosphatase Lactate Dehydrogenase Total Creatine Kinase CK-MB (CK-2) C-Reactive Protein Total Protein Albumin Urine WBC (Auto) Urine Creatinine Urine Total Protein Coronavirus (PCR) Positive A 05/29/20 05/29/20 05/29/20 04:43 15:10 17:17 WBC RBC Hgb 9.3 L Hct 28.7 L RDW Lymph % (Auto) [place] % (Auto) Lymph # [place] # Seg Neutrophils % Seg Neuts % (Manual) Lymphocytes % (Manual) Seg Neutrophils # Seg Neutrophils # Man Lymphocytes # (Manual) Monocytes # (Manual) D-Dimer Heparin Anti-Xa Level ABG pH ABG pO2 ABG HCO3 ABG O2 Saturation ABG Base Excess ABG Hemoglobin VBG pH Oxyhemoglobin Sodium Potassium Chloride 110.2 H Carbon Dioxide 18 L BUN 32 H Creatinine 1.4 H Glucose 180 H POC Glucose 147 H Lactic Acid Calcium AST Alkaline Phosphatase Lactate Dehydrogenase Total Creatine Kinase CK-MB (CK-2) C-Reactive Protein Total Protein Albumin Urine WBC (Auto) Urine Creatinine Urine Total Protein Coronavirus (PCR) 05/30/20 05/30/20 05/30/20 00:08 00:12 04:15 WBC RBC Hgb Hct RDW Lymph % (Auto) [place] % (Auto) Lymph # [place] # Seg Neutrophils % Seg Neuts % (Manual) Lymphocytes % (Manual) Seg Neutrophils # Seg Neutrophils # Man Lymphocytes # (Manual) Monocytes # (Manual) D-Dimer Heparin Anti-Xa Level 0.71 H ABG pH 7.460 H ABG pO2 106.0 H ABG HCO3 18.9 L ABG O2 Saturation ABG Base Excess -4.4 L ABG Hemoglobin 6.8 L VBG pH Oxyhemoglobin Sodium Potassium Chloride Carbon Dioxide BUN Creatinine Glucose POC Glucose 195 H Lactic Acid Calcium AST Alkaline Phosphatase Lactate Dehydrogenase Total Creatine Kinase CK-MB (CK-2) C-Reactive Protein Total Protein Albumin Urine WBC (Auto) Urine Creatinine Urine Total Protein Coronavirus (PCR) 05/30/20 05/30/20 05/30/20 06:07 08:37 12:33 WBC RBC Hgb Hct RDW Lymph % (Auto) [place] % (Auto) Lymph # [place] # Seg Neutrophils % Seg Neuts % (Manual) Lymphocytes % (Manual) Seg Neutrophils # Seg Neutrophils # Man Lymphocytes # (Manual) Monocytes # (Manual) D-Dimer Heparin Anti-Xa Level 0.85 H ABG pH ABG pO2 ABG HCO3 ABG O2 Saturation ABG Base Excess ABG Hemoglobin VBG pH Oxyhemoglobin Sodium Potassium Chloride Carbon Dioxide BUN Creatinine Glucose POC Glucose 182 H 187 H Lactic Acid Calcium AST Alkaline Phosphatase Lactate Dehydrogenase Total Creatine Kinase CK-MB (CK-2) C-Reactive Protein Total Protein Albumin Urine WBC (Auto) Urine Creatinine Urine Total Protein Coronavirus (PCR) 05/30/20 05/30/20 05/30/20 15:58 17:57 23:36 WBC RBC Hgb Hct RDW Lymph % (Auto) [place] % (Auto) Lymph # [place] # Seg Neutrophils % Seg Neuts % (Manual) Lymphocytes % (Manual) Seg Neutrophils # Seg Neutrophils # Man Lymphocytes # (Manual) Monocytes # (Manual) D-Dimer Heparin Anti-Xa Level 1.03 H ABG pH ABG pO2 ABG HCO3 ABG O2 Saturation ABG Base Excess ABG Hemoglobin VBG pH Oxyhemoglobin Sodium Potassium Chloride Carbon Dioxide BUN Creatinine Glucose POC Glucose 208 H 185 H Lactic Acid Calcium AST Alkaline Phosphatase Lactate Dehydrogenase Total Creatine Kinase CK-MB (CK-2) C-Reactive Protein Total Protein Albumin Urine WBC (Auto) Urine Creatinine Urine Total Protein Coronavirus (PCR) 05/31/20 05/31/20 05/31/20 02:16 03:55 06:16 WBC RBC Hgb 9.2 L Hct 27.5 L RDW Lymph % (Auto) [place] % (Auto) Lymph # [place] # Seg Neutrophils % Seg Neuts % (Manual) Lymphocytes % (Manual) Seg Neutrophils # Seg Neutrophils # Man Lymphocytes # (Manual) Monocytes # (Manual) D-Dimer Heparin Anti-Xa Level ABG pH ABG pO2 94.7 H ABG HCO3 18.6 L ABG O2 Saturation ABG Base Excess -5.5 L ABG Hemoglobin 7.9 L VBG pH Oxyhemoglobin Sodium Potassium Chloride Carbon Dioxide BUN Creatinine Glucose POC Glucose 160 H Lactic Acid Calcium AST Alkaline Phosphatase Lactate Dehydrogenase Total Creatine Kinase CK-MB (CK-2) C-Reactive Protein Total Protein Albumin Urine WBC (Auto) Urine Creatinine Urine Total Protein Coronavirus (PCR) 05/31/20 05/31/20 05/31/20 12:20 13:03 18:13 WBC RBC Hgb Hct RDW Lymph % (Auto) [place] % (Auto) Lymph # [place] # Seg Neutrophils % Seg Neuts % (Manual) Lymphocytes % (Manual) Seg Neutrophils # Seg Neutrophils # Man Lymphocytes # (Manual) Monocytes # (Manual) D-Dimer Heparin Anti-Xa Level ABG pH ABG pO2 ABG HCO3 ABG O2 Saturation ABG Base Excess ABG Hemoglobin VBG pH Oxyhemoglobin Sodium Potassium Chloride Carbon Dioxide 18 L BUN 48 H Creatinine 1.6 H Glucose 115 H POC Glucose 128 H 159 H Lactic Acid Calcium 8.3 L AST Alkaline Phosphatase Lactate Dehydrogenase Total Creatine Kinase CK-MB (CK-2) C-Reactive Protein Total Protein 5.4 L Albumin 2.4 L Urine WBC (Auto) Urine Creatinine Urine Total Protein Coronavirus (PCR) 05/31/20 06/01/20 06/01/20 23:51 04:00 05:48 WBC RBC Hgb Hct RDW Lymph % (Auto) [place] % (Auto) Lymph # [place] # Seg Neutrophils % Seg Neuts % (Manual) Lymphocytes % (Manual) Seg Neutrophils # Seg Neutrophils # Man Lymphocytes # (Manual) Monocytes # (Manual) D-Dimer Heparin Anti-Xa Level ABG pH ABG pO2 109.8 H ABG HCO3 18.8 L ABG O2 Saturation ABG Base Excess -5.9 L ABG Hemoglobin 7.8 L VBG pH Oxyhemoglobin Sodium Potassium Chloride Carbon Dioxide BUN Creatinine Glucose POC Glucose 171 H 133 H Lactic Acid Calcium AST Alkaline Phosphatase Lactate Dehydrogenase Total Creatine Kinase CK-MB (CK-2) C-Reactive Protein Total Protein Albumin Urine WBC (Auto) Urine Creatinine Urine Total Protein Coronavirus (PCR) 06/01/20 06/01/20 06/02/20 12:28 17:29 00:08 WBC RBC Hgb Hct RDW Lymph % (Auto) [place] % (Auto) Lymph # [place] # Seg Neutrophils % Seg Neuts % (Manual) Lymphocytes % (Manual) Seg Neutrophils # Seg Neutrophils # Man Lymphocytes # (Manual) Monocytes # (Manual) D-Dimer Heparin Anti-Xa Level ABG pH ABG pO2 ABG HCO3 ABG O2 Saturation ABG Base Excess ABG Hemoglobin VBG pH Oxyhemoglobin Sodium Potassium Chloride Carbon Dioxide BUN Creatinine Glucose POC Glucose 199 H 209 H 162 H Lactic Acid Calcium AST Alkaline Phosphatase Lactate Dehydrogenase Total Creatine Kinase CK-MB (CK-2) C-Reactive Protein Total Protein Albumin Urine WBC (Auto) Urine Creatinine Urine Total Protein Coronavirus (PCR) 06/02/20 06/02/20 06/02/20 04:20 04:20 04:44 WBC RBC Hgb 10.0 L Hct RDW Lymph % (Auto) [place] % (Auto) Lymph # [place] # Seg Neutrophils % Seg Neuts % (Manual) Lymphocytes % (Manual) Seg Neutrophils # Seg Neutrophils # Man Lymphocytes # (Manual) Monocytes # (Manual) D-Dimer Heparin Anti-Xa Level 0.10 L ABG pH ABG pO2 150.6 H ABG HCO3 ABG O2 Saturation ABG Base Excess -4.1 L ABG Hemoglobin 11.8 L VBG pH Oxyhemoglobin Sodium Potassium Chloride Carbon Dioxide BUN Creatinine Glucose POC Glucose Lactic Acid Calcium AST Alkaline Phosphatase Lactate Dehydrogenase Total Creatine Kinase CK-MB (CK-2) C-Reactive Protein Total Protein Albumin Urine WBC (Auto) Urine Creatinine Urine Total Protein Coronavirus (PCR) 06/02/20 06/02/20 06/02/20 05:53 12:04 13:49 WBC RBC Hgb Hct RDW Lymph % (Auto) [place] % (Auto) Lymph # [place] # Seg Neutrophils % Seg Neuts % (Manual) Lymphocytes % (Manual) Seg Neutrophils # Seg Neutrophils # Man Lymphocytes # (Manual) Monocytes # (Manual) D-Dimer Heparin Anti-Xa Level 0.28 L ABG pH ABG pO2 ABG HCO3 ABG O2 Saturation ABG Base Excess ABG Hemoglobin VBG pH Oxyhemoglobin Sodium Potassium Chloride Carbon Dioxide BUN Creatinine Glucose POC Glucose 149 H 220 H Lactic Acid Calcium AST Alkaline Phosphatase Lactate Dehydrogenase Total Creatine Kinase CK-MB (CK-2) C-Reactive Protein Total Protein Albumin Urine WBC (Auto) Urine Creatinine Urine Total Protein Coronavirus (PCR) 06/02/20 06/02/20 06/03/20 13:49 18:31 00:42 WBC RBC Hgb Hct RDW Lymph % (Auto) [place] % (Auto) Lymph # [place] # Seg Neutrophils % Seg Neuts % (Manual) Lymphocytes % (Manual) Seg Neutrophils # Seg Neutrophils # Man Lymphocytes # (Manual) Monocytes # (Manual) D-Dimer 769.68 H Heparin Anti-Xa Level ABG pH ABG pO2 ABG HCO3 ABG O2 Saturation ABG Base Excess ABG Hemoglobin VBG pH Oxyhemoglobin Sodium Potassium Chloride Carbon Dioxide BUN Creatinine Glucose POC Glucose 225 H 212 H Lactic Acid Calcium AST Alkaline Phosphatase Lactate Dehydrogenase Total Creatine Kinase CK-MB (CK-2) C-Reactive Protein Total Protein Albumin Urine WBC (Auto) Urine Creatinine Urine Total Protein Coronavirus (PCR) 06/03/20 06/03/20 06/03/20 05:16 05:16 05:25 WBC 11.4 H RBC Hgb Hct RDW 16.4 H Lymph % (Auto) [place] % (Auto) Lymph # [place] # Seg Neutrophils % Seg Neuts % (Manual) Lymphocytes % (Manual) Seg Neutrophils # Seg Neutrophils # Man Lymphocytes # (Manual) Monocytes # (Manual) D-Dimer Heparin Anti-Xa Level ABG pH ABG pO2 160.9 H ABG HCO3 19.4 L ABG O2 Saturation ABG Base Excess -4.9 L ABG Hemoglobin 7.0 L VBG pH Oxyhemoglobin Sodium Potassium Chloride Carbon Dioxide 18 L BUN 65 H Creatinine 2.0 H Glucose 175 H POC Glucose Lactic Acid Calcium 8.0 L AST Alkaline Phosphatase Lactate Dehydrogenase Total Creatine Kinase CK-MB (CK-2) C-Reactive Protein Total Protein 5.5 L Albumin 2.2 L Urine WBC (Auto) Urine Creatinine Urine Total Protein Coronavirus (PCR) 06/03/20 06/03/20 06/03/20 06:07 11:58 18:24 WBC RBC Hgb Hct RDW Lymph % (Auto) [place] % (Auto) Lymph # [place] # Seg Neutrophils % Seg Neuts % (Manual) Lymphocytes % (Manual) Seg Neutrophils # Seg Neutrophils # Man Lymphocytes # (Manual) Monocytes # (Manual) D-Dimer Heparin Anti-Xa Level ABG pH ABG pO2 ABG HCO3 ABG O2 Saturation ABG Base Excess ABG Hemoglobin VBG pH Oxyhemoglobin Sodium Potassium Chloride Carbon Dioxide BUN Creatinine Glucose POC Glucose 177 H 163 H 211 H Lactic Acid Calcium AST Alkaline Phosphatase Lactate Dehydrogenase Total Creatine Kinase CK-MB (CK-2) C-Reactive Protein Total Protein Albumin Urine WBC (Auto) Urine Creatinine Urine Total Protein Coronavirus (PCR) 06/03/20 06/03/20 06/04/20 21:50 Unknown 00:26 WBC RBC Hgb Hct RDW Lymph % (Auto) [place] % (Auto) Lymph # [place] # Seg Neutrophils % Seg Neuts % (Manual) Lymphocytes % (Manual) Seg Neutrophils # Seg Neutrophils # Man Lymphocytes # (Manual) Monocytes # (Manual) D-Dimer Heparin Anti-Xa Level ABG pH ABG pO2 ABG HCO3 ABG O2 Saturation ABG Base Excess ABG Hemoglobin VBG pH Oxyhemoglobin Sodium 135 L Potassium Chloride Carbon Dioxide 18 L BUN Creatinine Glucose POC Glucose 241 H Lactic Acid Calcium AST Alkaline Phosphatase Lactate Dehydrogenase Total Creatine Kinase CK-MB (CK-2) C-Reactive Protein Total Protein Albumin Urine WBC (Auto) 11.0 H Urine Creatinine Urine Total Protein Coronavirus (PCR) 06/04/20 06/04/20 06/04/20 03:35 04:19 04:19 WBC RBC 3.15 L Hgb 8.9 L Hct 26.8 L D RDW 15.9 H Lymph % (Auto) 6.0 L [place] % (Auto) Lymph # 0.6 L [place] # Seg Neutrophils % 86.6 H Seg Neuts % (Manual) Lymphocytes % (Manual) Seg Neutrophils # 9.1 H Seg Neutrophils # Man Lymphocytes # (Manual) Monocytes # (Manual) D-Dimer Heparin Anti-Xa Level ABG pH 7.331 L ABG pO2 ABG HCO3 ABG O2 Saturation ABG Base Excess -4.7 L ABG Hemoglobin 11.0 L VBG pH Oxyhemoglobin 93.9 L Sodium 136 L Potassium Chloride Carbon Dioxide 20 L BUN 73 H Creatinine 2.0 H Glucose 192 H POC Glucose Lactic Acid Calcium 8.0 L AST Alkaline Phosphatase Lactate Dehydrogenase 271 H Total Creatine Kinase CK-MB (CK-2) C-Reactive Protein 2.20 H Total Protein 5.0 L Albumin 2.0 L Urine WBC (Auto) Urine Creatinine Urine Total Protein Coronavirus (PCR) 06/04/20 06/04/20 06/04/20 04:19 05:51 11:48 WBC RBC Hgb Hct RDW Lymph % (Auto) [place] % (Auto) Lymph # [place] # Seg Neutrophils % Seg Neuts % (Manual) Lymphocytes % (Manual) Seg Neutrophils # Seg Neutrophils # Man Lymphocytes # (Manual) Monocytes # (Manual) D-Dimer 414.52 H Heparin Anti-Xa Level ABG pH ABG pO2 ABG HCO3 ABG O2 Saturation ABG Base Excess ABG Hemoglobin VBG pH Oxyhemoglobin Sodium Potassium Chloride Carbon Dioxide BUN Creatinine Glucose POC Glucose 179 H 213 H Lactic Acid Calcium AST Alkaline Phosphatase Lactate Dehydrogenase Total Creatine Kinase CK-MB (CK-2) C-Reactive Protein Total Protein Albumin Urine WBC (Auto) Urine Creatinine Urine Total Protein Coronavirus (PCR) 06/04/20 06/05/20 06/05/20 18:25 00:16 05:00 WBC RBC Hgb Hct RDW Lymph % (Auto) [place] % (Auto) Lymph # [place] # Seg Neutrophils % Seg Neuts % (Manual) Lymphocytes % (Manual) Seg Neutrophils # Seg Neutrophils # Man Lymphocytes # (Manual) Monocytes # (Manual) D-Dimer Heparin Anti-Xa Level ABG pH 7.286 L ABG pO2 96.2 H ABG HCO3 ABG O2 Saturation ABG Base Excess -6.3 L ABG Hemoglobin 8.8 L VBG pH Oxyhemoglobin 94.8 L Sodium Potassium Chloride Carbon Dioxide BUN Creatinine Glucose POC Glucose 238 H 183 H Lactic Acid Calcium AST Alkaline Phosphatase Lactate Dehydrogenase Total Creatine Kinase CK-MB (CK-2) C-Reactive Protein Total Protein Albumin Urine WBC (Auto) Urine Creatinine Urine Total Protein Coronavirus (PCR) 06/05/20 06/05/20 06/05/20 05:39 07:25 07:25 WBC RBC 2.97 L Hgb 8.7 L Hct 25.7 L RDW 16.0 H Lymph % (Auto) 8.8 L [place] % (Auto) 13.3 H Lymph # 0.8 L [place] # 1.3 H Seg Neutrophils % 77.3 H Seg Neuts % (Manual) Lymphocytes % (Manual) Seg Neutrophils # Seg Neutrophils # Man Lymphocytes # (Manual) Monocytes # (Manual) D-Dimer Heparin Anti-Xa Level ABG pH ABG pO2 ABG HCO3 ABG O2 Saturation ABG Base Excess ABG Hemoglobin VBG pH Oxyhemoglobin Sodium 133 L Potassium Chloride Carbon Dioxide 17 L BUN 89 H Creatinine 2.8 H Glucose 176 H POC Glucose 149 H Lactic Acid Calcium 7.7 L AST Alkaline Phosphatase Lactate Dehydrogenase Total Creatine Kinase CK-MB (CK-2) C-Reactive Protein Total Protein 4.2 L Albumin 1.9 L Urine WBC (Auto) Urine Creatinine Urine Total Protein Coronavirus (PCR) 06/05/20 06/05/20 06/05/20 07:25 12:05 15:41 WBC RBC Hgb Hct RDW Lymph % (Auto) [place] % (Auto) Lymph # [place] # Seg Neutrophils % Seg Neuts % (Manual) Lymphocytes % (Manual) Seg Neutrophils # Seg Neutrophils # Man Lymphocytes # (Manual) Monocytes # (Manual) D-Dimer Heparin Anti-Xa Level 0.76 H 0.81 H ABG pH ABG pO2 ABG HCO3 ABG O2 Saturation ABG Base Excess ABG Hemoglobin VBG pH Oxyhemoglobin Sodium Potassium Chloride Carbon Dioxide BUN Creatinine Glucose POC Glucose 198 H Lactic Acid Calcium AST Alkaline Phosphatase Lactate Dehydrogenase Total Creatine Kinase CK-MB (CK-2) C-Reactive Protein Total Protein Albumin Urine WBC (Auto) Urine Creatinine Urine Total Protein Coronavirus (PCR) 06/05/20 06/05/20 06/06/20 18:08 23:25 04:00 WBC RBC Hgb Hct RDW Lymph % (Auto) [place] % (Auto) Lymph # [place] # Seg Neutrophils % Seg Neuts % (Manual) Lymphocytes % (Manual) Seg Neutrophils # Seg Neutrophils # Man Lymphocytes # (Manual) Monocytes # (Manual) D-Dimer Heparin Anti-Xa Level ABG pH ABG pO2 ABG HCO3 ABG O2 Saturation ABG Base Excess ABG Hemoglobin VBG pH Oxyhemoglobin Sodium Potassium Chloride Carbon Dioxide BUN Creatinine Glucose POC Glucose 223 H 169 H Lactic Acid Calcium AST Alkaline Phosphatase Lactate Dehydrogenase Total Creatine Kinase CK-MB (CK-2) C-Reactive Protein Total Protein Albumin Urine WBC (Auto) 15.0 H Urine Creatinine Urine Total Protein Coronavirus (PCR) 06/06/20 06/06/20 06/06/20 04:00 05:33 05:38 WBC RBC 2.97 L Hgb 8.7 L Hct 26.8 L RDW 16.8 H Lymph % (Auto) [place] % (Auto) Lymph # [place] # Seg Neutrophils % Seg Neuts % (Manual) Lymphocytes % (Manual) Seg Neutrophils # Seg Neutrophils # Man Lymphocytes # (Manual) Monocytes # (Manual) D-Dimer Heparin Anti-Xa Level ABG pH ABG pO2 ABG HCO3 ABG O2 Saturation ABG Base Excess ABG Hemoglobin VBG pH Oxyhemoglobin Sodium Potassium Chloride Carbon Dioxide BUN Creatinine Glucose POC Glucose 186 H Lactic Acid Calcium AST Alkaline Phosphatase Lactate Dehydrogenase Total Creatine Kinase CK-MB (CK-2) C-Reactive Protein Total Protein Albumin Urine WBC (Auto) Urine Creatinine 82.2 H Urine Total Protein 196 H Coronavirus (PCR) 06/06/20 06/06/20 06/06/20 05:38 12:25 17:03 WBC RBC Hgb Hct RDW Lymph % (Auto) [place] % (Auto) Lymph # [place] # Seg Neutrophils % Seg Neuts % (Manual) Lymphocytes % (Manual) Seg Neutrophils # Seg Neutrophils # Man Lymphocytes # (Manual) Monocytes # (Manual) D-Dimer Heparin Anti-Xa Level ABG pH ABG pO2 ABG HCO3 ABG O2 Saturation ABG Base Excess ABG Hemoglobin VBG pH Oxyhemoglobin Sodium 134 L Potassium 5.2 H Chloride Carbon Dioxide 18 L BUN 97 H Creatinine 2.5 H Glucose 193 H POC Glucose 239 H 252 H Lactic Acid Calcium 7.5 L AST Alkaline Phosphatase Lactate Dehydrogenase Total Creatine Kinase CK-MB (CK-2) C-Reactive Protein Total Protein 4.1 L Albumin 1.9 L Urine WBC (Auto) Urine Creatinine Urine Total Protein Coronavirus (PCR) 06/07/20 06/07/20 06/07/20 00:16 01:49 04:00 WBC RBC 2.91 L Hgb 8.4 L Hct 25.0 L RDW 16.1 H Lymph % (Auto) 5.7 L [place] % (Auto) 10.5 H Lymph # 0.6 L [place] # 1.1 H Seg Neutrophils % 83.6 H Seg Neuts % (Manual) Lymphocytes % (Manual) Seg Neutrophils # 9.1 H Seg Neutrophils # Man Lymphocytes # (Manual) Monocytes # (Manual) D-Dimer Heparin Anti-Xa Level 0.26 L ABG pH ABG pO2 ABG HCO3 ABG O2 Saturation ABG Base Excess ABG Hemoglobin VBG pH Oxyhemoglobin Sodium Potassium Chloride Carbon Dioxide BUN Creatinine Glucose POC Glucose 173 H Lactic Acid Calcium AST Alkaline Phosphatase Lactate Dehydrogenase Total Creatine Kinase CK-MB (CK-2) C-Reactive Protein Total Protein Albumin Urine WBC (Auto) Urine Creatinine Urine Total Protein Coronavirus (PCR) 06/07/20 06/07/20 06/07/20 04:00 04:54 05:51 WBC RBC Hgb Hct RDW Lymph % (Auto) [place] % (Auto) Lymph # [place] # Seg Neutrophils % Seg Neuts % (Manual) Lymphocytes % (Manual) Seg Neutrophils # Seg Neutrophils # Man Lymphocytes # (Manual) Monocytes # (Manual) D-Dimer Heparin Anti-Xa Level ABG pH 7.317 L ABG pO2 71.4 L ABG HCO3 ABG O2 Saturation 94.3 L ABG Base Excess -4.8 L ABG Hemoglobin 7.1 L VBG pH Oxyhemoglobin 92.2 L Sodium 133 L Potassium Chloride Carbon Dioxide 18 L BUN 100 H Creatinine 2.5 H Glucose 158 H POC Glucose 168 H Lactic Acid Calcium 7.6 L AST Alkaline Phosphatase Lactate Dehydrogenase Total Creatine Kinase CK-MB (CK-2) C-Reactive Protein Total Protein 4.7 L Albumin 2.0 L Urine WBC (Auto) Urine Creatinine Urine Total Protein Coronavirus (PCR) 06/07/20 06/07/20 06/07/20 12:03 17:17 20:10 WBC RBC Hgb Hct RDW Lymph % (Auto) [place] % (Auto) Lymph # [place] # Seg Neutrophils % Seg Neuts % (Manual) Lymphocytes % (Manual) Seg Neutrophils # Seg Neutrophils # Man Lymphocytes # (Manual) Monocytes # (Manual) D-Dimer Heparin Anti-Xa Level 0.17 L ABG pH ABG pO2 ABG HCO3 ABG O2 Saturation ABG Base Excess ABG Hemoglobin VBG pH Oxyhemoglobin Sodium Potassium Chloride Carbon Dioxide BUN Creatinine Glucose POC Glucose 276 H 281 H Lactic Acid Calcium AST Alkaline Phosphatase Lactate Dehydrogenase Total Creatine Kinase CK-MB (CK-2) C-Reactive Protein Total Protein Albumin Urine WBC (Auto) Urine Creatinine Urine Total Protein Coronavirus (PCR) 06/08/20 06/08/20 06/08/20 00:02 04:47 04:47 WBC 16.4 H RBC 3.07 L Hgb 8.6 L Hct 26.5 L RDW 16.3 H Lymph % (Auto) [place] % (Auto) Lymph # [place] # Seg Neutrophils % Seg Neuts % (Manual) 90.0 H Lymphocytes % (Manual) 3.0 L Seg Neutrophils # Seg Neutrophils # Man 14.8 H Lymphocytes # (Manual) 0.5 L Monocytes # (Manual) 1.1 H D-Dimer Heparin Anti-Xa Level ABG pH ABG pO2 ABG HCO3 ABG O2 Saturation ABG Base Excess ABG Hemoglobin VBG pH Oxyhemoglobin Sodium 129 L Potassium Chloride 95.6 L Carbon Dioxide 17 L BUN 106 H Creatinine 2.5 H Glucose 213 H POC Glucose 242 H Lactic Acid Calcium 7.6 L AST Alkaline Phosphatase Lactate Dehydrogenase Total Creatine Kinase CK-MB (CK-2) C-Reactive Protein Total Protein 5.0 L Albumin 2.1 L Urine WBC (Auto) Urine Creatinine Urine Total Protein Coronavirus (PCR) 06/08/20 06/08/20 06/08/20 05:40 11:55 17:54 WBC RBC Hgb Hct RDW Lymph % (Auto) [place] % (Auto) Lymph # [place] # Seg Neutrophils % Seg Neuts % (Manual) Lymphocytes % (Manual) Seg Neutrophils # Seg Neutrophils # Man Lymphocytes # (Manual) Monocytes # (Manual) D-Dimer Heparin Anti-Xa Level ABG pH ABG pO2 ABG HCO3 ABG O2 Saturation ABG Base Excess ABG Hemoglobin VBG pH Oxyhemoglobin Sodium Potassium Chloride Carbon Dioxide BUN Creatinine Glucose POC Glucose 221 H 218 H 163 H Lactic Acid Calcium AST Alkaline Phosphatase Lactate Dehydrogenase Total Creatine Kinase CK-MB (CK-2) C-Reactive Protein Total Protein Albumin Urine WBC (Auto) Urine Creatinine Urine Total Protein Coronavirus (PCR) 06/08/20 06/09/20 06/09/20 22:01 00:09 05:16 WBC 19.0 H RBC 3.35 L Hgb 9.2 L Hct 28.5 L RDW 16.3 H Lymph % (Auto) [place] % (Auto) Lymph # [place] # Seg Neutrophils % Seg Neuts % (Manual) 85.0 H Lymphocytes % (Manual) 7.0 L Seg Neutrophils # Seg Neutrophils # Man 16.2 H Lymphocytes # (Manual) Monocytes # (Manual) 1.3 H D-Dimer Heparin Anti-Xa Level ABG pH ABG pO2 ABG HCO3 ABG O2 Saturation ABG Base Excess ABG Hemoglobin VBG pH Oxyhemoglobin Sodium Potassium Chloride Carbon Dioxide BUN Creatinine Glucose POC Glucose 182 H 150 H Lactic Acid Calcium AST Alkaline Phosphatase Lactate Dehydrogenase Total Creatine Kinase CK-MB (CK-2) C-Reactive Protein Total Protein Albumin Urine WBC (Auto) Urine Creatinine Urine Total Protein Coronavirus (PCR) 06/09/20 06/09/20 06/09/20 05:16 05:24 11:29 WBC RBC Hgb Hct RDW Lymph % (Auto) [place] % (Auto) Lymph # [place] # Seg Neutrophils % Seg Neuts % (Manual) Lymphocytes % (Manual) Seg Neutrophils # Seg Neutrophils # Man Lymphocytes # (Manual) Monocytes # (Manual) D-Dimer Heparin Anti-Xa Level ABG pH ABG pO2 ABG HCO3 ABG O2 Saturation ABG Base Excess ABG Hemoglobin VBG pH Oxyhemoglobin Sodium 133 L Potassium Chloride Carbon Dioxide 19 L BUN 109 H Creatinine 2.1 H Glucose 133 H POC Glucose 128 H 119 H Lactic Acid Calcium 7.7 L AST Alkaline Phosphatase < 5 L Lactate Dehydrogenase Total Creatine Kinase CK-MB (CK-2) C-Reactive Protein Total Protein 4.6 L Albumin < 0.2 L Urine WBC (Auto) Urine Creatinine Urine Total Protein Coronavirus (PCR) 06/09/20 06/10/20 06/10/20 17:32 00:00 05:49 WBC RBC Hgb Hct RDW Lymph % (Auto) [place] % (Auto) Lymph # [place] # Seg Neutrophils % Seg Neuts % (Manual) Lymphocytes % (Manual) Seg Neutrophils # Seg Neutrophils # Man Lymphocytes # (Manual) Monocytes # (Manual) D-Dimer Heparin Anti-Xa Level 0.19 L ABG pH ABG pO2 ABG HCO3 ABG O2 Saturation ABG Base Excess ABG Hemoglobin VBG pH Oxyhemoglobin Sodium Potassium Chloride Carbon Dioxide BUN Creatinine Glucose POC Glucose 106 H 117 H Lactic Acid Calcium AST Alkaline Phosphatase Lactate Dehydrogenase Total Creatine Kinase CK-MB (CK-2) C-Reactive Protein Total Protein Albumin Urine WBC (Auto) Urine Creatinine Urine Total Protein Coronavirus (PCR) 06/10/20 06/10/20 06/10/20 05:54 07:40 11:40 WBC RBC Hgb Hct RDW Lymph % (Auto) [place] % (Auto) Lymph # [place] # Seg Neutrophils % Seg Neuts % (Manual) Lymphocytes % (Manual) Seg Neutrophils # Seg Neutrophils # Man Lymphocytes # (Manual) Monocytes # (Manual) D-Dimer Heparin Anti-Xa Level ABG pH ABG pO2 ABG HCO3 ABG O2 Saturation ABG Base Excess ABG Hemoglobin VBG pH Oxyhemoglobin Sodium 146 H D Potassium Chloride Carbon Dioxide 20 L BUN 99 H Creatinine 1.9 H Glucose 121 H POC Glucose 127 H 138 H Lactic Acid Calcium 8.2 L AST Alkaline Phosphatase Lactate Dehydrogenase Total Creatine Kinase CK-MB (CK-2) C-Reactive Protein Total Protein Albumin Urine WBC (Auto) Urine Creatinine Urine Total Protein Coronavirus (PCR) 06/10/20 06/10/20 06/10/20 14:44 17:31 23:22 WBC RBC Hgb Hct RDW Lymph % (Auto) [place] % (Auto) Lymph # [place] # Seg Neutrophils % Seg Neuts % (Manual) Lymphocytes % (Manual) Seg Neutrophils # Seg Neutrophils # Man Lymphocytes # (Manual) Monocytes # (Manual) D-Dimer Heparin Anti-Xa Level 0.17 L ABG pH ABG pO2 ABG HCO3 ABG O2 Saturation ABG Base Excess ABG Hemoglobin VBG pH Oxyhemoglobin Sodium Potassium Chloride Carbon Dioxide BUN Creatinine Glucose POC Glucose 128 H 114 H Lactic Acid Calcium AST Alkaline Phosphatase Lactate Dehydrogenase Total Creatine Kinase CK-MB (CK-2) C-Reactive Protein Total Protein Albumin Urine WBC (Auto) Urine Creatinine Urine Total Protein Coronavirus (PCR) 06/11/20 06/11/20 06/11/20 00:22 03:45 03:45 WBC 14.6 H RBC 2.77 L Hgb 7.9 L Hct 24.3 L RDW 16.8 H Lymph % (Auto) 6.6 L [place] % (Auto) 8.5 H Lymph # 1.0 L [place] # 1.2 H Seg Neutrophils % 82.9 H Seg Neuts % (Manual) Lymphocytes % (Manual) Seg Neutrophils # 12.1 H Seg Neutrophils # Man Lymphocytes # (Manual) Monocytes # (Manual) D-Dimer Heparin Anti-Xa Level 0.24 L ABG pH ABG pO2 ABG HCO3 ABG O2 Saturation ABG Base Excess ABG Hemoglobin VBG pH Oxyhemoglobin Sodium Potassium Chloride Carbon Dioxide 20 L BUN 88 H Creatinine 1.5 H Glucose 111 H POC Glucose Lactic Acid Calcium 8.2 L AST Alkaline Phosphatase Lactate Dehydrogenase Total Creatine Kinase CK-MB (CK-2) C-Reactive Protein Total Protein Albumin Urine WBC (Auto) Urine Creatinine Urine Total Protein Coronavirus (PCR) 06/11/20 06/11/20 06/11/20 06:03 10:22 11:11 WBC RBC Hgb Hct RDW Lymph % (Auto) [place] % (Auto) Lymph # [place] # Seg Neutrophils % Seg Neuts % (Manual) Lymphocytes % (Manual) Seg Neutrophils # Seg Neutrophils # Man Lymphocytes # (Manual) Monocytes # (Manual) D-Dimer Heparin Anti-Xa Level 0.26 L ABG pH ABG pO2 ABG HCO3 ABG O2 Saturation ABG Base Excess ABG Hemoglobin 9.6 L VBG pH Oxyhemoglobin Sodium Potassium Chloride Carbon Dioxide BUN Creatinine Glucose POC Glucose 114 H Lactic Acid Calcium AST Alkaline Phosphatase Lactate Dehydrogenase Total Creatine Kinase CK-MB (CK-2) C-Reactive Protein Total Protein Albumin Urine WBC (Auto) Urine Creatinine Urine Total Protein Coronavirus (PCR) 06/11/20 06/11/20 06/12/20 12:24 17:24 00:21 WBC RBC Hgb Hct RDW Lymph % (Auto) [place] % (Auto) Lymph # [place] # Seg Neutrophils % Seg Neuts % (Manual) Lymphocytes % (Manual) Seg Neutrophils # Seg Neutrophils # Man Lymphocytes # (Manual) Monocytes # (Manual) D-Dimer Heparin Anti-Xa Level ABG pH ABG pO2 ABG HCO3 ABG O2 Saturation ABG Base Excess ABG Hemoglobin VBG pH Oxyhemoglobin Sodium Potassium Chloride Carbon Dioxide BUN Creatinine Glucose POC Glucose 119 H 126 H 117 H Lactic Acid Calcium AST Alkaline Phosphatase Lactate Dehydrogenase Total Creatine Kinase CK-MB (CK-2) C-Reactive Protein Total Protein Albumin Urine WBC (Auto) Urine Creatinine Urine Total Protein Coronavirus (PCR) 06/12/20 06/12/20 06/12/20 02:46 02:46 05:46 WBC 13.2 H RBC 2.83 L Hgb 8.3 L Hct 24.3 L RDW 16.6 H Lymph % (Auto) 6.2 L [place] % (Auto) 9.5 H Lymph # 0.8 L [place] # 1.3 H Seg Neutrophils % 81.9 H Seg Neuts % (Manual) Lymphocytes % (Manual) Seg Neutrophils # 10.9 H Seg Neutrophils # Man Lymphocytes # (Manual) Monocytes # (Manual) D-Dimer Heparin Anti-Xa Level ABG pH ABG pO2 ABG HCO3 ABG O2 Saturation ABG Base Excess ABG Hemoglobin VBG pH Oxyhemoglobin Sodium Potassium 3.5 L Chloride Carbon Dioxide BUN 77 H Creatinine 1.3 H Glucose POC Glucose 132 H Lactic Acid Calcium 8.3 L AST Alkaline Phosphatase Lactate Dehydrogenase Total Creatine Kinase CK-MB (CK-2) C-Reactive Protein Total Protein Albumin Urine WBC (Auto) Urine Creatinine Urine Total Protein Coronavirus (PCR) 06/12/20 06/12/20 06/12/20 09:20 12:16 17:48 WBC RBC Hgb Hct RDW Lymph % (Auto) [place] % (Auto) Lymph # [place] # Seg Neutrophils % Seg Neuts % (Manual) Lymphocytes % (Manual) Seg Neutrophils # Seg Neutrophils # Man Lymphocytes # (Manual) Monocytes # (Manual) D-Dimer Heparin Anti-Xa Level ABG pH ABG pO2 91.1 H ABG HCO3 ABG O2 Saturation ABG Base Excess ABG Hemoglobin VBG pH Oxyhemoglobin 94.8 L Sodium Potassium Chloride Carbon Dioxide BUN Creatinine Glucose POC Glucose 167 H 182 H Lactic Acid Calcium AST Alkaline Phosphatase Lactate Dehydrogenase Total Creatine Kinase CK-MB (CK-2) C-Reactive Protein Total Protein Albumin Urine WBC (Auto) Urine Creatinine Urine Total Protein Coronavirus (PCR) 06/13/20 06/13/20 06/13/20 00:08 05:37 09:09 WBC RBC Hgb Hct RDW Lymph % (Auto) [place] % (Auto) Lymph # [place] # Seg Neutrophils % Seg Neuts % (Manual) Lymphocytes % (Manual) Seg Neutrophils # Seg Neutrophils # Man Lymphocytes # (Manual) Monocytes # (Manual) D-Dimer Heparin Anti-Xa Level 0.86 H ABG pH ABG pO2 ABG HCO3 ABG O2 Saturation ABG Base Excess ABG Hemoglobin VBG pH Oxyhemoglobin Sodium Potassium Chloride Carbon Dioxide BUN Creatinine Glucose POC Glucose 142 H 119 H Lactic Acid Calcium AST Alkaline Phosphatase Lactate Dehydrogenase Total Creatine Kinase CK-MB (CK-2) C-Reactive Protein Total Protein Albumin Urine WBC (Auto) Urine Creatinine Urine Total Protein Coronavirus (PCR) 06/13/20 06/13/20 06/13/20 17:55 21:17 21:17 WBC RBC Hgb Hct RDW Lymph % (Auto) [place] % (Auto) Lymph # [place] # Seg Neutrophils % Seg Neuts % (Manual) Lymphocytes % (Manual) Seg Neutrophils # Seg Neutrophils # Man Lymphocytes # (Manual) Monocytes # (Manual) D-Dimer Heparin Anti-Xa Level 0.72 H ABG pH ABG pO2 ABG HCO3 ABG O2 Saturation ABG Base Excess ABG Hemoglobin VBG pH Oxyhemoglobin Sodium Potassium Chloride Carbon Dioxide BUN 61 H Creatinine Glucose 131 H POC Glucose 174 H Lactic Acid Calcium AST Alkaline Phosphatase Lactate Dehydrogenase Total Creatine Kinase CK-MB (CK-2) C-Reactive Protein Total Protein Albumin Urine WBC (Auto) Urine Creatinine Urine Total Protein Coronavirus (PCR) 06/13/20 06/14/20 06/14/20 23:50 05:34 06:11 WBC RBC Hgb Hct RDW Lymph % (Auto) [place] % (Auto) Lymph # [place] # Seg Neutrophils % Seg Neuts % (Manual) Lymphocytes % (Manual) Seg Neutrophils # Seg Neutrophils # Man Lymphocytes # (Manual) Monocytes # (Manual) D-Dimer Heparin Anti-Xa Level ABG pH ABG pO2 ABG HCO3 ABG O2 Saturation ABG Base Excess ABG Hemoglobin VBG pH Oxyhemoglobin Sodium 146 H Potassium Chloride 107.6 H Carbon Dioxide BUN 61 H Creatinine 1.3 H Glucose 135 H POC Glucose 146 H 141 H Lactic Acid Calcium AST Alkaline Phosphatase Lactate Dehydrogenase Total Creatine Kinase CK-MB (CK-2) C-Reactive Protein Total Protein Albumin Urine WBC (Auto) Urine Creatinine Urine Total Protein Coronavirus (PCR) 06/14/20 09:28 WBC RBC Hgb Hct RDW Lymph % (Auto) [place] % (Auto) Lymph # [place] # Seg Neutrophils % Seg Neuts % (Manual) Lymphocytes % (Manual) Seg Neutrophils # Seg Neutrophils # Man Lymphocytes # (Manual) Monocytes # (Manual) D-Dimer Heparin Anti-Xa Level 0.90 H ABG pH ABG pO2 ABG HCO3 ABG O2 Saturation ABG Base Excess ABG Hemoglobin VBG pH Oxyhemoglobin Sodium Potassium Chloride Carbon Dioxide BUN Creatinine Glucose POC Glucose Lactic Acid Calcium AST Alkaline Phosphatase Lactate Dehydrogenase Total Creatine Kinase CK-MB (CK-2) C-Reactive Protein Total Protein Albumin Urine WBC (Auto) Urine Creatinine Urine Total Protein Coronavirus (PCR) Chest x-ray: image reviewed (Improved alveolar infiltres and effusion) Allied health notes reviewed: RT
--- NOTE | 2020-06-14 14:46 | Progress Note ---
Assessment and Plan -- Acute hypoxemic respiratory failure From COVID-19 viral infection extubated now, on high flow o2 -- s/p PEA Cardiac arrest Cardiology team on board Conservative management as per cardiology -- Acute metabolic encephalopathy, POA likely from sepsis and s/p cardiac arrest with possible anoxic injury -- Acute renal failure likely ATN Cr slowly improving Avoid ACEI and other nephrotoxic medications Nephrology following -- Coronavirus infection with b/l PNA Completed remdesivir on 06/02 Continue dexamethasone - Last dose 06/07 ID recs appreciated. Maintained on ventilator --Klebsiella pneumonia: S to cefepime, continue --CHF (congestive heart failure) Cardiology following. Ef 45% -- Coffee ground emesis -Stress ulcers Possible stress ulcers On PPI H/H remains stable GI evaluation if Hb drops again -- Hypertension Continue amlodipine, coreg, clonidine and hydralazine Monitor BP --Mild LFT elevation: likely from COVID-19. -- DVT prophylaxis SCD to bilateral lower extremities while in bed Heparin -- Advance care planning Patient is full code. poor prognosis The high probability of a clinically significant, sudden or life threatening deterioration of the [PARADI OPERATOR, CVS, respiratory, renal] system(s) required my full and direct attention, intervention and personal management. The aggregate critical care time was [32] minutes. This time is in addition to time spent performing reported procedures but includes the following: [x] Data Review and interpretation [x] Patient assessment and monitoring of vital signs [x] Documentation [x] Medication orders and management Brief History; 64 YO Female with a medical history of HTN, Diastolic CHF, Pulmonary HTN, DM, Obesity Hypoventilation Syndrome presents to ED for evaluation of shortness of breath. Patients history taken from EMS staff, ED staff. As per staff, the EMS was notified for difficulty breathing. Upon arrival to the patient's home the patient was found to be in distress and was subsequently transported to [facility] for further evaluation and care. In route to [facility] the patient developed cardiac arrest and was treated in accordance with ACLS protocol with return of ROSC Patient was seen and evaluated in the emergency department and was found to have acute hypoxemic respiratory failure status post cardiac arrest. Patient was intubated and placed on ventilatory support. Patient admitted to ICU due to increased risk of decompensation. Critical care team consulted in ED. She was found to have COVID-19 iinfection and was started on steroids and remdesivir. ID was consulted. Cardiology was consulted for her systolic heart failure and cardiac arrest. 06/01. Patient remains intubated and on ventilatory support today. Patient has multiple organ system failure and has poor prognosis. Patient did not experienc e significant medical decompensation overnight but no improvement with current therapy. 06/02. Remains intubated. her BP is elevated. Started on nicardipine drip. Cardiology following. 06/03-06/04. BP is better. Hb stable. Completed remdesivir. ID , Cardiology and Critical care team on board 06/05. Bump in creatinine. I/O reviewed. Nephrology consulted. 06/06. Has slight improvement in renal function. Nephrology on board. On SBT today. Vitals stable. 06/07. Stable renal function. No need for HD as per nephrology. She is making urine. Plan for SBT. 06/08. Off sedation and very lethargic. Her BUN is going up - effect of steroids vs GI bleed. Her hemoglobin remains stable. Will check stool guaiac. Nephrology is following. WBC bumped to 16 today. 06/09: remains intubated, wbc trended up, Cr slightly trending down. cont TF, wean off vent as tolerated. 06/10: Cr trending down, cont to wean off vent as tolerated. 06/10; Cr much improved, cont iv fluid, tolerating tube feeding. stopped vac, iv cefepime for total 10 days. 06/11; creatinine 1.5 today, sodium level has normalized. Continue tube feeding, continue cefepime for 10 days. Continue to wean off as tolerated. 06/12: planned for extubation today 06/13: extubated yesterday, now on Bipap 06/14: patient on Bipap, remains on TF, restraint. cont to follow clinically 06/15: patient on high flow O2,remains on TF, restraint. cont to follow clinically Subjective Date of service: 06/14/20 Principal diagnosis: Ac hypoxemic resp failure; COVID-19; pneumonia; CHF; Pulm H TN; OHS; DM II Interval history: Patient seen and examined Vitals reviewed Patient on hogh flow O2 Tolerating tube feeding Discussed with RN at the bedside Objective - Exam Narrative Exam: General appearance: Present: obese, other (on high flow o2) - EENT Eyes: Present: PERRL - Neck Neck: Present: supple - Cardiovascular Rhythm: regular Heart Sounds: Present: S1 & S2 - Extremities Extremities: No edema - Abdominal General gastrointestinal: soft, non-tender, non-distended - Neurologic Neurologic: alert and awake, no focal deficit, confused Skin: No rash warm and dry Musculoskeletal: No joint effusion or erythema Psychiatric: agitated on restraint - Constitutional Vitals: Vital Signs - 12hr 06/14/20 06/14/20 06/14/20 03:00 03:30 03:45 Temperature 100.1 F H Pulse Rate 73 69 Pulse Rate [ From Monitor] Respiratory 11 L 13 Rate Blood Pressure 137/50 121/45 O2 Sat by Pulse 100 99 Oximetry 06/14/20 06/14/20 06/14/20 04:00 04:30 05:00 Temperature Pulse Rate 72 68 66 Pulse Rate [ 73 From Monitor] Respiratory 13 13 15 Rate Blood Pressure 127/52 130/49 130/49 O2 Sat by Pulse 100 100 100 Oximetry 06/14/20 06/14/20 06/14/20 05:30 05:39 06:00 Temperature Pulse Rate 68 73 Pulse Rate [ From Monitor] Respiratory 13 16 Rate Blood Pressure 126/49 126/49 125/49 O2 Sat by Pulse 100 99 Oximetry 06/14/20 06/14/20 06/14/20 06:30 07:00 07:30 Temperature Pulse Rate 67 65 65 Pulse Rate [ From Monitor] Respiratory 15 16 16 Rate Blood Pressure 125/49 105/44 108/42 O2 Sat by Pulse 100 100 100 Oximetry 06/14/20 06/14/20 06/14/20 08:00 08:30 08:50 Temperature 98.2 F Pulse Rate 71 68 64 Pulse Rate [ 81 From Monitor] Respiratory 16 10 L 22 Rate Blood Pressure 108/42 122/47 122/47 O2 Sat by Pulse 100 100 100 Oximetry 06/14/20 06/14/20 06/14/20 09:00 09:30 09:41 Temperature Pulse Rate 68 66 66 Pulse Rate [ From Monitor] Respiratory 15 12 Rate Blood Pressure 117/47 117/47 121/49 O2 Sat by Pulse 100 100 Oximetry 06/14/20 06/14/20 06/14/20 09:42 10:00 10:20 Temperature Pulse Rate 66 68 Pulse Rate [ From Monitor] Respiratory 15 Rate Blood Pressure 121/49 121/49 O2 Sat by Pulse 100 96 Oximetry 06/14/20 06/14/20 06/14/20 10:30 11:00 11:31 Temperature Pulse Rate 71 65 66 Pulse Rate [ From Monitor] Respiratory 12 17 16 Rate Blood Pressure 117/43 99/47 101/45 O2 Sat by Pulse 96 95 97 Oximetry 06/14/20 06/14/20 06/14/20 11:45 12:00 12:31 Temperature 98.1 F 98.1 F Pulse Rate 78 69 Pulse Rate [ 78 From Monitor] Respiratory 20 17 Rate Blood Pressure 119/47 130/58 O2 Sat by Pulse 99 98 Oximetry 06/14/20 06/14/20 06/14/20 13:01 13:30 14:01 Temperature Pulse Rate 81 73 80 Pulse Rate [ From Monitor] Respiratory 19 19 18 Rate Blood Pressure 125/59 137/53 141/50 O2 Sat by Pulse 99 96 97 Oximetry 06/14/20 06/14/20 14:18 14:19 Temperature Pulse Rate 80 80 Pulse Rate [ From Monitor] Respiratory Rate Blood Pressure 141/50 141/50 O2 Sat by Pulse Oximetry - Labs CBC & Chem 7: 06/12/20 02:46 06/14/20 05:34 Labs: Abnormal lab results 06/13/20 06/13/20 06/13/20 Range/Units 17:55 21:17 21:17 Heparin Anti-Xa Level 0.72 H (0.3-0.7) U.I./ml Sodium (137-145) mmol/L Chloride (98-107) mmol/L BUN 61 H (7-17) mg/dL Creatinine (0.6-1.2) mg/dL Glucose 131 H (65-100) mg/dL POC Glucose 174 H (70-105) 06/13/20 06/14/20 06/14/20 Range/Units 23:50 05:34 06:11 Heparin Anti-Xa Level (0.3-0.7) U.I./ml Sodium 146 H (137-145) mmol/L Chloride 107.6 H (98-107) mmol/L BUN 61 H (7-17) mg/dL Creatinine 1.3 H (0.6-1.2) mg/dL Glucose 135 H (65-100) mg/dL POC Glucose 146 H 141 H (70-105) 06/14/20 Range/Units 09:28 Heparin Anti-Xa Level 0.90 H (0.3-0.7) U.I./ml Sodium (137-145) mmol/L Chloride (98-107) mmol/L BUN (7-17) mg/dL Creatinine (0.6-1.2) mg/dL Glucose (65-100) mg/dL POC Glucose (70-105)
--- NOTE | 2020-06-14 18:18 | Progress Note ---
Assessment and Plan - Patient Problems (1) Acute kidney injury (AVANI) with acute tubular necrosis (ATN) Current Visit: Yes Status: Acute Plan to address problem: Kidney function has been improving. Patient is nonoliguric. Kidney function is a bit worse. Follow-up electrolytes and renal function (2) Hypernatremia Current Visit: Yes Status: Acute Plan to address problem: Agree with stopping lasix. Increase free water intake and follow up Sodium (3) Acute hypoxemic respiratory failure Current Visit: Yes Status: Acute Plan to address problem: Being managed by pulmonary. S/p Extubation (4) Cardiac arrest Current Visit: Yes Status: Acute Plan to address problem: Patient is improving (5) Metabolic encephalopathy Current Visit: Yes Status: Acute Plan to address problem: Mental status is improving (6) Pneumonia due to COVID-19 virus Current Visit: Yes Status: Acute Plan to address problem: Patient has completed 5 days of Remdesevir. Completed course of steroids. 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 Patient was not examined at the bedside today due to Personal protective equipment conservation due the COVID-19 pandemic and also to decrease exposure of Phototypesetting Equipment Monitor. Reviewed clinical data, nurses notes, and Physician notes. Defer Physical examination to the Primary Attending MD. Extubated. Objective - Exam Narrative Exam: Patient was not examined today due to PPE conservation given the COVID-19 pandemic. Patient on high flow O2,remains on TF, restraint. - Vital Signs Vital signs: Vital Signs - 12hr 06/14/20 06/14/20 06/14/20 06:30 07:00 07:30 Temperature Pulse Rate 67 65 65 Pulse Rate [ From Monitor] Respiratory 15 16 16 Rate Blood Pressure 125/49 105/44 108/42 O2 Sat by Pulse 100 100 100 Oximetry 06/14/20 06/14/20 06/14/20 08:00 08:30 08:50 Temperature 98.2 F Pulse Rate 71 68 64 Pulse Rate [ 81 From Monitor] Respiratory 16 10 L 22 Rate Blood Pressure 108/42 122/47 122/47 O2 Sat by Pulse 100 100 100 Oximetry 06/14/20 06/14/20 06/14/20 09:00 09:30 09:41 Temperature Pulse Rate 68 66 66 Pulse Rate [ From Monitor] Respiratory 15 12 Rate Blood Pressure 117/47 117/47 121/49 O2 Sat by Pulse 100 100 Oximetry 06/14/20 06/14/20 06/14/20 09:42 10:00 10:20 Temperature Pulse Rate 66 68 Pulse Rate [ From Monitor] Respiratory 15 Rate Blood Pressure 121/49 121/49 O2 Sat by Pulse 100 96 Oximetry 06/14/20 06/14/20 06/14/20 10:30 11:00 11:31 Temperature Pulse Rate 71 65 66 Pulse Rate [ From Monitor] Respiratory 12 17 16 Rate Blood Pressure 117/43 99/47 101/45 O2 Sat by Pulse 96 95 97 Oximetry 06/14/20 06/14/20 06/14/20 11:45 12:00 12:31 Temperature 98.1 F 98.1 F Pulse Rate 78 69 Pulse Rate [ 78 From Monitor] Respiratory 20 17 Rate Blood Pressure 119/47 130/58 O2 Sat by Pulse 99 98 Oximetry 06/14/20 06/14/20 06/14/20 13:01 13:30 14:01 Temperature Pulse Rate 81 73 80 Pulse Rate [ From Monitor] Respiratory 19 19 18 Rate Blood Pressure 125/59 137/53 141/50 O2 Sat by Pulse 99 96 97 Oximetry 06/14/20 06/14/20 06/14/20 14:18 14:19 14:30 Temperature Pulse Rate 80 80 77 Pulse Rate [ From Monitor] Respiratory 21 Rate Blood Pressure 141/50 141/50 133/49 O2 Sat by Pulse 96 Oximetry 06/14/20 06/14/20 06/14/20 15:00 15:04 15:31 Temperature Pulse Rate 72 72 78 Pulse Rate [ From Monitor] Respiratory 18 19 Rate Blood Pressure 127/52 126/47 O2 Sat by Pulse 97 98 Oximetry 06/14/20 06/14/20 06/14/20 15:54 16:00 16:30 Temperature 98.2 F Pulse Rate 80 76 Pulse Rate [ 80 From Monitor] Respiratory 20 21 Rate Blood Pressure 116/53 128/47 O2 Sat by Pulse 96 98 97 Oximetry 06/14/20 06/14/20 06/14/20 17:00 17:30 18:00 Temperature Pulse Rate 73 74 75 Pulse Rate [ From Monitor] Respiratory 18 17 18 Rate Blood Pressure 118/42 121/47 122/51 O2 Sat by Pulse 96 97 97 Oximetry - Lab 06/12/20 02:46 06/14/20 05:34 Most recent lab results ABG pH 7.409 pH Units (7.350-7.450) 06/12/20 09:20 ABG pCO2 42.0 mm Hg 06/12/20 09:20 ABG pO2 91.1 mm Hg (80.0-90.0) H 06/12/20 09:20 ABG HCO3 25.9 mmol/L (20.0-26.0) 06/12/20 09:20 ABG O2 Saturation 97.0 % (95.0-99.0) 06/12/20 09:20 Calcium 8.5 mg/dL (8.4-10.2) 06/14/20 05:34 Urine Creatinine 82.2 mg/dL (0.1-20.0) H 06/06/20 04:00 Urine Sodium 20 mmol/L 06/06/20 04:00 Urine Total Protein 196 mg/dL (5-11.8) H 06/06/20 04:00 Medications & Allergies - Medications Allergies/Adverse Reactions: Allergies No Known Allergies Allergy (Verified 01/21/20 12:28) Home Medications: Home Medications Medication Instructions Recorded Confirmed Last Taken Type AtorvaSTATin [Lipitor] 20 mg PO QHS 05/12/20 05/29/20 Unknown History lisinopriL [Zestril TAB] 40 mg PO QDAY 05/12/20 05/29/20 Unknown History metFORMIN [Glucophage] 850 mg PO BID 05/12/20 05/29/20 Unknown History Acetaminophen [Acetaminophen TAB] 650 mg PO Q4H PRN tablet 05/13/20 05/29/20 Unknown Rx Dicyclomine [Bentyl] 20 mg PO BID #20 tablet 05/13/20 05/29/20 Unknown Rx Famotidine [Pepcid] 20 mg PO BID #30 tablet 05/13/20 05/29/20 Unknown Rx carvediloL [Coreg] 6.25 mg PO BID #60 05/13/20 05/29/20 Unknown Rx Active Medications: Generic Name Dose Route Start Last Admin Trade Name Freq PRN Reason Stop Dose Admin Acetaminophen 650 mg 06/09/20 10:57 06/09/20 20:28 Tylenol FEEDTUBE 650 mg Q6H PRN Administration Fever >101 Amlodipine Besylate 10 mg 06/02/20 11:00 06/14/20 09:41 Amlodipine PO 10 mg DAILY NELSON Administration Lipase/Protease/Amylase 1 each 05/29/20 13:[address] 10,500 Unit FEEDTUBE PRN PRN For Clogged Feeding Tube Carvedilol 12.5 mg 06/03/20 10:00 06/14/20 09:42 Coreg PO 12.5 mg BID NELSON Administration Clonidine HCl 0.1 mg 06/04/20 06:00 06/14/20 14:18 Catapres PO 0.1 mg Q8HR NELSON Administration Clonidine HCl 0.2 mg 06/04/20 06:00 06/14/20 14:19 Catapres PO 0.2 mg Q8HR NELSON Administration Glycopyrrolate 2 mg 06/09/20 14:00 06/14/20 14:19 Glycopyrrolate PO 2 mg TID NELSON Administration Hydralazine HCl 50 mg 06/03/20 09:00 06/14/20 14:18 Apresoline PO 50 mg Q8HR NELSON Administration Hydrophilic Ointment 1 applic 05/28/20 13:49 Vaseline Lip Therapy TP Q2HR PRN Dry Lips Heparin Sodium/Sodium Chloride 25,000 unit in 500 mls @ 30 mls/hr 05/29/20 15:00 06/14/20 16:33 Heparin/ 0.45% Nacl-25,000 Unit/500 Ml IV 1,550 units/hr TITR NELSON 31 mls/hr Administration Protocol 1,500 UNITS/HR Nicardipine HCl 50 mg/ Sodium 250 mls @ 25 mls/hr 06/02/20 09:00 06/02/20 11:23 Chloride IV 0 mg/hr TITR NELSON 0 mls/hr Titration Protocol 5 MG/HR Cefepime HCl 2 gm in 100 mls @ 200 mls/hr 06/11/20 10:00 06/14/20 09:42 Cefepime/Ns 2 Gm/100 Ml IV 200 mls/hr Q12HR NELSON Administration Protocol Insulin Glargine 10 units 06/08/20 22:00 06/13/20 22:06 Lantus SUB-Q 10 units QHS NELSON Administration Insulin Human Lispro 0 unit 05/29/20 18:00 06/14/20 18:07 Humalog SUB-Q Not Given Q6H [facility] Protocol Labetalol HCl 20 mg 06/03/20 09:00 06/08/20 23:51 Labetalol IV 20 mg Q4H PRN Administration HYPERTENSION Lansoprazole 30 mg 06/05/20 22:00 06/14/20 09:42 Prevacid Solutab FEEDTUBE 30 mg BID NELSON Administration Levetiracetam 500 mg 05/29/20 22:00 06/14/20 09:41 Keppra PO 500 mg BID NELSON Administration Metoclopramide HCl 10 mg 06/10/20 20:00 06/14/20 14:19 Reglan IV 10 mg Q6H NELSON Administration Multi-Ingred Cream/Lotion/Oil/Oint 1 applic 05/28/20 13:49 Artificial Tears Ophth Oint OU Q4HR PRN Dry Eye(s) Ondansetron HCl 4 mg 06/02/20 09:00 06/09/20 16:48 Zofran IV 4 mg Q8H PRN Administration Nausea And Vomiting Quetiapine Fumarate 50 mg 06/14/20 22:00 Seroquel PO QHS NELSON Scopolamine 1 each 06/05/20 14:00 06/14/20 09:42 Transderm-Scop TD 1 each Q3D NELSON Administration Senna 17.6 mg 06/03/20 10:00 06/14/20 09:45 Senokot FEEDTUBE 17.6 mg BID NELSON Administration Simple Syrup 15 ml 05/29/20 13:39 Simple Syrup FEEDTUBE PRN PRN Hypoglycemia Simple Syrup 30 ml 05/29/20 13:39 Simple Syrup FEEDTUBE PRN PRN Hypoglycemia Sodium Bicarbonate 325 mg 05/29/20 13:39 Sodium Bicarbonate FEEDTUBE PRN PRN For Clogged Feeding Tube Sodium Bicarbonate 650 mg 06/06/20 10:00 06/14/20 09:42 Sodium Bicarbonate PO 650 mg BID NELSON Administration Sodium Chloride 10 ml 05/28/20 22:00 06/14/20 09:43 Sodium Chloride Flush Syringe 10 Ml IV 10 ml BID NELSON Administration Sodium Chloride 10 ml 05/28/20 19:08 06/13/20 09:04 Sodium Chloride Flush Syringe 10 Ml IV 10 ml PRN PRN Administration LINE FLUSH
[2020-06-14] MEDS: QUEtiapine 25 MG TAB PO SCH (21:03)
[2020-06-14] MEDS: INSULIN GLARGINE 100 UNITS/ML SUB-Q SCH (23:30)
[2020-06-15] MEDS: METOCLOPRAMIDE 10 MG/2 ML INJ IV SCH ×4 (03:14→22:15)
[2020-06-15 05:03] LABS: Basophils # (Auto) 0.1 K/mm3 (0.0-0.1); Basophils % (Auto) 0.6 % (0.0-1.8); Eosinophils # (Auto) 0.4 K/mm3 (0.0-0.4); Eosinophils % (Auto) 4.6 % (0.0-4.3); Hemoglobin 7.9 gm/dl (10.1-14.3); Lymphocytes # (Auto) 1.1 K/mm3 (1.2-5.4); Lymphocytes % (Auto) 12.9 % (13.4-35.0); Mean Corpuscular HGB Conc 33 % (30-34); Mean Corpuscular Volume 87 fl (79-97); Monocytes # (Auto) 0.8 K/mm3 (0.0-0.8); Monocytes % (Auto) 8.7 % (0.0-7.3); Platelet Count 203 K/mm3 (140-440); Red Blood Count 2.75 M/mm3 (3.65-5.03); Red Cell Distribution Width 16.4 % (13.2-15.2)
[2020-06-15 05:35] LABS: Calcium 9.1 mg/dL (8.4-10.2)
[2020-06-15] MEDS: INSULIN LISPRO 100 UNIT/ML VIAL 3 mL SUB-Q SCH ×3 (06:40→18:31)
[2020-06-15] MEDS: GLYCOPYRROLATE 2 MG TAB PO SCH ×3 (07:17→21:32)
[2020-06-15] MEDS: hydrALAZINE 25 MG TAB PO SCH ×3 (07:17→21:34)
[2020-06-15] MEDS: cloNIDine 0.1 MG TAB PO SCH ×3 (07:18→21:33)
[2020-06-15] MEDS: cloNIDine 0.2 MG TAB PO SCH ×3 (07:18→21:32)
[2020-06-15] MEDS ORDERED: POTASSIUM CHLORIDE 20 MEQ PACKET FEEDTUBE ONE (09:00)
[2020-06-15] MEDS: SENNOSIDES ORAL LIQD 8.8 MG/5 ML ORAL LIQD FEEDTUBE SCH ×2 (09:27→21:35)
[2020-06-15] MEDS: CEFEPIME/NS 2 GM/100 ML 2 GM/100 ML BAG IV SCH ×2 (09:28→21:39)
[2020-06-15] MEDS: carvediloL 12.5 MG TAB PO SCH ×2 (09:28→21:34)
[2020-06-15] MEDS: levETIRAcetam 500 MG TAB PO SCH ×2 (09:29→21:33)
[2020-06-15] MEDS: HEPARIN/ 0.45% NACL DRIP 25,000 UNIT/500 ML BAG IV SCH (09:30)
[2020-06-15] MEDS: amLODIPine 10 MG TAB PO SCH (09:31)
[2020-06-15] MEDS: LANSOPRAZOLE 30 MG SOLUTAB FEEDTUBE SCH ×2 (09:43→21:35)
[2020-06-15] MEDS: SODIUM BICARBONATE 650 MG TAB PO SCH ×2 (09:43→21:35)
--- NOTE | 2020-06-15 10:40 | Progress Note ---
Assessment and Plan Acute hypoxemic respiratory failure s/p MVS Severe COVID infection Multifocal pneumonia Morbid obesity Acute toxic metabolic encephalopathy AVANI secondary to COVID/vasomotor nephropathy Bilateral pulmonary edema. Bilateral pleural effusions. History of congestive heart failure. Morbid obesity. History of pulmonary hypertension. History of hypertension. Diabetes. Obesity hypoventilation syndrome. Elevated serum inflammatory markers to include D-dimers and LDH levels. AVANI Metabolic acidosis. Oropharyngeal dysphagia. -Continue with BIPAP qhs and HFOT during the day -Incentive spirometry -Wean supplemental oxygen to keep O2 sats >90% -PT/OT, increase activity -Enteric nutrition with glycemic control, aspiration precautions -Cefepime ends 06/18/2020 -OK to switch heparin infusion to oral anticoagulation -Replace potassium -Continue to avoid nephrotoxins, closely monitor renal function, dose all medica tions for renal function -OK to transfer to [facility] for ongoing care - continue bronchodilators with pulmonary hygiene per RT - continue to avoid benzodiazepines, reduce the possibility of delirium - conservative fluid management measures as tolerated by hemodynamics and renal function - Bronchodilators with pulmonary hygiene per RT - Accuchecks with glycemic control per SSI (While critically ill target blood glucose of 140-180 mg/dL; avoid hypoglycemia) - Maintenance of sleep-wake cycle, avoid delirium - Stress ulcer prophylaxis -Famotidine - Mobility protocol, off loading and skin assessment for pressure ulcer prevention - Monitor hemodynamics closely - Supportive transfusions as indicated to keep HgB >7g/dL COVID SPECIFIC INTERVENTIONS -Airborne, contact isolation for COVID per facility protocols - s/p Remdesivir -IV steroids-Dexamethasone -Trend d-dimer,and other inflammatory markers per facility protocol -Convalescent plasma therapy per facility protocol -Continue all supportive care Discussed with the ICU team-RT,RN, Life threatening condition- COVID 19 ARDS acute hypoxemic respiratory failure s/p MVS Mortality/Morbidity- High Complexity of medical decision making- High CONDITION: FAIR PROGNOSIS: GUARDED CODE STATUS: FULL CODE Subjective Date of service: 06/15/20 Principal diagnosis: Ac hypoxemic resp failure; COVID-19; pneumonia; CHF; Pulm HTN; OHS; DM II Interval history: Patient is seen today for: Ac hypoxemic resp failure; Coronavirus-19 infection; pneumonia; Pulmonary edema; Bilateral pleural effusions; CHF; Morbid obesity; pulmonary hypertension; OHS; DM II Seen and examined at bedside; 24hour events reviewed; nursing and respiratory care staff consulted; no adverse overnight events reported to me; resting peacefully in bed; looks comfortable on HFOT this morning. No overnight fevers, no vomiting, more awake and alert. responsive. Objective Vital Signs - 12hr 06/14/20 06/14/20 06/14/20 23:00 23:30 23:50 Temperature Pulse Rate 77 76 75 Pulse Rate [ From Monitor] Respiratory 16 16 23 Rate Blood Pressure 131/47 119/52 119/52 O2 Sat by Pulse 92 97 99 Oximetry 06/15/20 06/15/20 06/15/20 00:00 00:30 01:00 Temperature 98.9 F Pulse Rate 74 74 71 Pulse Rate [ 84 From Monitor] Respiratory 17 17 14 Rate Blood Pressure 125/48 120/43 119/47 O2 Sat by Pulse 99 99 100 Oximetry 06/15/20 06/15/20 06/15/20 01:30 02:00 02:30 Temperature Pulse Rate 69 68 68 Pulse Rate [ From Monitor] Respiratory 15 14 16 Rate Blood Pressure 121/45 131/52 124/48 O2 Sat by Pulse 100 100 100 Oximetry 06/15/20 06/15/20 06/15/20 03:00 03:30 04:00 Temperature 98.9 F Pulse Rate 68 70 Pulse Rate [ 84 From Monitor] Respiratory 13 12 18 Rate Blood Pressure 132/54 118/46 O2 Sat by Pulse 100 100 98 Oximetry 06/15/20 06/15/20 06/15/20 04:01 04:31 05:00 Temperature Pulse Rate 70 79 70 Pulse Rate [ From Monitor] Respiratory 12 15 12 Rate Blood Pressure 127/52 118/46 137/53 O2 Sat by Pulse 100 99 100 Oximetry 06/15/20 06/15/20 06/15/20 05:15 05:30 06:01 Temperature Pulse Rate 70 70 Pulse Rate [ From Monitor] Respiratory 19 10 L Rate Blood Pressure 145/55 140/57 O2 Sat by Pulse 100 99 99 Oximetry 06/15/20 06/15/20 06/15/20 06:30 07:00 07:17 Temperature Pulse Rate 71 71 Pulse Rate [ From Monitor] Respiratory 16 11 L Rate Blood Pressure 131/60 125/56 125/56 O2 Sat by Pulse 100 99 Oximetry 06/15/20 06/15/20 06/15/20 07:18 07:31 08:00 Temperature 97.6 F Pulse Rate 71 67 Pulse Rate [ From Monitor] Respiratory 10 L 12 Rate Blood Pressure 125/52 138/57 151/55 O2 Sat by Pulse 99 100 Oximetry 06/15/20 06/15/20 06/15/20 08:31 08:58 09:28 Temperature Pulse Rate 72 97 H Pulse Rate [ From Monitor] Respiratory 10 L Rate Blood Pressure 152/58 138/53 O2 Sat by Pulse 98 99 Oximetry 06/15/20 09:31 Temperature Pulse Rate Pulse Rate [ From Monitor] Respiratory Rate Blood Pressure 145/63 O2 Sat by Pulse Oximetry Constitutional: no acute distress, other (elderly looking obese female on HFOT) Eyes: non-icteric ENT: other Neck: supple, no lymphadenopathy, no JVD, other (large neck circumference) Effort: normal Ascultation: Bilateral: clear, diminished breath sounds, rhonchi Percussion: Bilateral: not dull Cardiovascular: regular rate and rhythm, other (S1,S2) Gastrointestinal: normoactive bowel sounds, soft, non-tender, non-distended Integumentary: normal Extremities: no cyanosis, no edema, pink and warm, pulses normal, no ischemia or petechiae Neurologic: normal mental status, non-focal exam (grossly), pupils equal and round, motor strength normal and Psychiatric: mood appropriate, affect normal CBC and BMP: 06/15/20 04:24 06/15/20 04:24 ABG, PT/INR, D-dimer: ABG ABG pH 7.409 pH Units (7.350-7.450) 06/12/20 09:20 POC ABG pCO2 37.4 mmHg (32.0-48.0) 06/11/20 11:11 ABG pCO2 42.0 mm Hg 06/12/20 09:20 POC ABG pO2 101.9 mmHg (83-108) 06/11/20 11:11 ABG pO2 91.1 mm Hg (80.0-90.0) H 06/12/20 09:20 ABG O2 Saturation 97.0 % (95.0-99.0) 06/12/20 09:20 PT/INR, D-dimer PT 14.2 Sec. (12.2-14.9) 05/29/20 15:10 INR 1.08 (0.87-1.13) 05/29/20 15:10 D-Dimer 414.52 ng/mlDDU (0-234) H 06/04/20 04:19 Abnormal lab findings: Abnormal Labs 05/28/20 05/28/20 05/28/20 13:29 13:47 13:47 WBC RBC Hgb Hct RDW 15.3 H Lymph % (Auto) [place] % (Auto) Eos % (Auto) Lymph # [place] # Seg Neutrophils % Seg Neuts % (Manual) Lymphocytes % (Manual) Seg Neutrophils # Seg Neutrophils # Man Lymphocytes # (Manual) Monocytes # (Manual) D-Dimer Heparin Anti-Xa Level ABG pH ABG pO2 ABG HCO3 ABG O2 Saturation ABG Base Excess ABG Hemoglobin VBG pH Oxyhemoglobin Sodium Potassium 6.6 H* Chloride 109.2 H Carbon Dioxide 17 L BUN 29 H Creatinine 1.3 H Glucose 265 H POC Glucose 248 H Lactic Acid Calcium 8.1 L AST 63 H Alkaline Phosphatase Lactate Dehydrogenase Total Creatine Kinase 301 H CK-MB (CK-2) 4.3 H C-Reactive Protein Total Protein 5.4 L Albumin 2.6 L Urine WBC (Auto) Urine Creatinine Urine Total Protein Coronavirus (PCR) 05/28/20 05/28/20 05/28/20 13:47 13:47 14:46 WBC RBC Hgb Hct RDW Lymph % (Auto) [place] % (Auto) Eos % (Auto) Lymph # [place] # Seg Neutrophils % Seg Neuts % (Manual) Lymphocytes % (Manual) Seg Neutrophils # Seg Neutrophils # Man Lymphocytes # (Manual) Monocytes # (Manual) D-Dimer Heparin Anti-Xa Level ABG pH ABG pO2 ABG HCO3 ABG O2 Saturation ABG Base Excess ABG Hemoglobin VBG pH 7.152 L* Oxyhemoglobin Sodium Potassium 7.2 H* Chloride Carbon Dioxide BUN Creatinine Glucose POC Glucose Lactic Acid 3.40 H* Calcium AST Alkaline Phosphatase Lactate Dehydrogenase Total Creatine Kinase CK-MB (CK-2) C-Reactive Protein Total Protein Albumin Urine WBC (Auto) Urine Creatinine Urine Total Protein Coronavirus (PCR) 05/28/20 05/28/20 05/28/20 15:33 15:33 15:51 WBC RBC Hgb Hct RDW Lymph % (Auto) [place] % (Auto) Eos % (Auto) Lymph # [place] # Seg Neutrophils % Seg Neuts % (Manual) Lymphocytes % (Manual) Seg Neutrophils # Seg Neutrophils # Man Lymphocytes # (Manual) Monocytes # (Manual) D-Dimer 8780.43 H Heparin Anti-Xa Level ABG pH 7.284 L ABG pO2 273.0 H ABG HCO3 ABG O2 Saturation 99.4 H ABG Base Excess -6.1 L ABG Hemoglobin 17.2 H VBG pH Oxyhemoglobin Sodium Potassium Chloride Carbon Dioxide BUN Creatinine Glucose 152 H POC Glucose Lactic Acid Calcium AST Alkaline Phosphatase Lactate Dehydrogenase 365 H Total Creatine Kinase CK-MB (CK-2) C-Reactive Protein Total Protein Albumin Urine WBC (Auto) Urine Creatinine Urine Total Protein Coronavirus (PCR) 05/28/20 05/28/20 05/28/20 16:30 20:41 23:20 WBC RBC Hgb Hct RDW Lymph % (Auto) [place] % (Auto) Eos % (Auto) Lymph # [place] # Seg Neutrophils % Seg Neuts % (Manual) Lymphocytes % (Manual) Seg Neutrophils # Seg Neutrophils # Man Lymphocytes # (Manual) Monocytes # (Manual) D-Dimer Heparin Anti-Xa Level ABG pH ABG pO2 ABG HCO3 ABG O2 Saturation ABG Base Excess ABG Hemoglobin VBG pH Oxyhemoglobin Sodium Potassium Chloride Carbon Dioxide BUN Creatinine Glucose POC Glucose 225 H 224 H Lactic Acid Calcium AST Alkaline Phosphatase Lactate Dehydrogenase Total Creatine Kinase CK-MB (CK-2) C-Reactive Protein Total Protein Albumin Urine WBC (Auto) 17.0 H Urine Creatinine Urine Total Protein Coronavirus (PCR) 05/28/20 05/29/20 05/29/20 Unknown 04:35 04:43 WBC RBC 3.48 L Hgb 9.8 L Hct 29.4 L RDW 16.0 H Lymph % (Auto) 7.4 L [place] % (Auto) Eos % (Auto) Lymph # 0.7 L [place] # Seg Neutrophils % 89.1 H Seg Neuts % (Manual) Lymphocytes % (Manual) Seg Neutrophils # 8.1 H Seg Neutrophils # Man Lymphocytes # (Manual) Monocytes # (Manual) D-Dimer Heparin Anti-Xa Level ABG pH ABG pO2 ABG HCO3 19.3 L ABG O2 Saturation ABG Base Excess -4.5 L ABG Hemoglobin 9.7 L VBG pH Oxyhemoglobin Sodium Potassium Chloride Carbon Dioxide BUN Creatinine Glucose POC Glucose Lactic Acid Calcium AST Alkaline Phosphatase Lactate Dehydrogenase Total Creatine Kinase CK-MB (CK-2) C-Reactive Protein Total Protein Albumin Urine WBC (Auto) Urine Creatinine Urine Total Protein Coronavirus (PCR) Positive A 05/29/20 05/29/20 05/29/20 04:43 15:10 17:17 WBC RBC Hgb 9.3 L Hct 28.7 L RDW Lymph % (Auto) [place] % (Auto) Eos % (Auto) Lymph # [place] # Seg Neutrophils % Seg Neuts % (Manual) Lymphocytes % (Manual) Seg Neutrophils # Seg Neutrophils # Man Lymphocytes # (Manual) Monocytes # (Manual) D-Dimer Heparin Anti-Xa Level ABG pH ABG pO2 ABG HCO3 ABG O2 Saturation ABG Base Excess ABG Hemoglobin VBG pH Oxyhemoglobin Sodium Potassium Chloride 110.2 H Carbon Dioxide 18 L BUN 32 H Creatinine 1.4 H Glucose 180 H POC Glucose 147 H Lactic Acid Calcium AST Alkaline Phosphatase Lactate Dehydrogenase Total Creatine Kinase CK-MB (CK-2) C-Reactive Protein Total Protein Albumin Urine WBC (Auto) Urine Creatinine Urine Total Protein Coronavirus (PCR) 05/30/20 05/30/20 05/30/20 00:08 00:12 04:15 WBC RBC Hgb Hct RDW Lymph % (Auto) [place] % (Auto) Eos % (Auto) Lymph # [place] # Seg Neutrophils % Seg Neuts % (Manual) Lymphocytes % (Manual) Seg Neutrophils # Seg Neutrophils # Man Lymphocytes # (Manual) Monocytes # (Manual) D-Dimer Heparin Anti-Xa Level 0.71 H ABG pH 7.460 H ABG pO2 106.0 H ABG HCO3 18.9 L ABG O2 Saturation ABG Base Excess -4.4 L ABG Hemoglobin 6.8 L VBG pH Oxyhemoglobin Sodium Potassium Chloride Carbon Dioxide BUN Creatinine Glucose POC Glucose 195 H Lactic Acid Calcium AST Alkaline Phosphatase Lactate Dehydrogenase Total Creatine Kinase CK-MB (CK-2) C-Reactive Protein Total Protein Albumin Urine WBC (Auto) Urine Creatinine Urine Total Protein Coronavirus (PCR) 05/30/20 05/30/20 05/30/20 06:07 08:37 12:33 WBC RBC Hgb Hct RDW Lymph % (Auto) [place] % (Auto) Eos % (Auto) Lymph # [place] # Seg Neutrophils % Seg Neuts % (Manual) Lymphocytes % (Manual) Seg Neutrophils # Seg Neutrophils # Man Lymphocytes # (Manual) Monocytes # (Manual) D-Dimer Heparin Anti-Xa Level 0.85 H ABG pH ABG pO2 ABG HCO3 ABG O2 Saturation ABG Base Excess ABG Hemoglobin VBG pH Oxyhemoglobin Sodium Potassium Chloride Carbon Dioxide BUN Creatinine Glucose POC Glucose 182 H 187 H Lactic Acid Calcium AST Alkaline Phosphatase Lactate Dehydrogenase Total Creatine Kinase CK-MB (CK-2) C-Reactive Protein Total Protein Albumin Urine WBC (Auto) Urine Creatinine Urine Total Protein Coronavirus (PCR) 05/30/20 05/30/20 05/30/20 15:58 17:57 23:36 WBC RBC Hgb Hct RDW Lymph % (Auto) [place] % (Auto) Eos % (Auto) Lymph # [place] # Seg Neutrophils % Seg Neuts % (Manual) Lymphocytes % (Manual) Seg Neutrophils # Seg Neutrophils # Man Lymphocytes # (Manual) Monocytes # (Manual) D-Dimer Heparin Anti-Xa Level 1.03 H ABG pH ABG pO2 ABG HCO3 ABG O2 Saturation ABG Base Excess ABG Hemoglobin VBG pH Oxyhemoglobin Sodium Potassium Chloride Carbon Dioxide BUN Creatinine Glucose POC Glucose 208 H 185 H Lactic Acid Calcium AST Alkaline Phosphatase Lactate Dehydrogenase Total Creatine Kinase CK-MB (CK-2) C-Reactive Protein Total Protein Albumin Urine WBC (Auto) Urine Creatinine Urine Total Protein Coronavirus (PCR) 05/31/20 05/31/20 05/31/20 02:16 03:55 06:16 WBC RBC Hgb 9.2 L Hct 27.5 L RDW Lymph % (Auto) [place] % (Auto) Eos % (Auto) Lymph # [place] # Seg Neutrophils % Seg Neuts % (Manual) Lymphocytes % (Manual) Seg Neutrophils # Seg Neutrophils # Man Lymphocytes # (Manual) Monocytes # (Manual) D-Dimer Heparin Anti-Xa Level ABG pH ABG pO2 94.7 H ABG HCO3 18.6 L ABG O2 Saturation ABG Base Excess -5.5 L ABG Hemoglobin 7.9 L VBG pH Oxyhemoglobin Sodium Potassium Chloride Carbon Dioxide BUN Creatinine Glucose POC Glucose 160 H Lactic Acid Calcium AST Alkaline Phosphatase Lactate Dehydrogenase Total Creatine Kinase CK-MB (CK-2) C-Reactive Protein Total Protein Albumin Urine WBC (Auto) Urine Creatinine Urine Total Protein Coronavirus (PCR) 05/31/20 05/31/20 05/31/20 12:20 13:03 18:13 WBC RBC Hgb Hct RDW Lymph % (Auto) [place] % (Auto) Eos % (Auto) Lymph # [place] # Seg Neutrophils % Seg Neuts % (Manual) Lymphocytes % (Manual) Seg Neutrophils # Seg Neutrophils # Man Lymphocytes # (Manual) Monocytes # (Manual) D-Dimer Heparin Anti-Xa Level ABG pH ABG pO2 ABG HCO3 ABG O2 Saturation ABG Base Excess ABG Hemoglobin VBG pH Oxyhemoglobin Sodium Potassium Chloride Carbon Dioxide 18 L BUN 48 H Creatinine 1.6 H Glucose 115 H POC Glucose 128 H 159 H Lactic Acid Calcium 8.3 L AST Alkaline Phosphatase Lactate Dehydrogenase Total Creatine Kinase CK-MB (CK-2) C-Reactive Protein Total Protein 5.4 L Albumin 2.4 L Urine WBC (Auto) Urine Creatinine Urine Total Protein Coronavirus (PCR) 05/31/20 06/01/20 06/01/20 23:51 04:00 05:48 WBC RBC Hgb Hct RDW Lymph % (Auto) [place] % (Auto) Eos % (Auto) Lymph # [place] # Seg Neutrophils % Seg Neuts % (Manual) Lymphocytes % (Manual) Seg Neutrophils # Seg Neutrophils # Man Lymphocytes # (Manual) Monocytes # (Manual) D-Dimer Heparin Anti-Xa Level ABG pH ABG pO2 109.8 H ABG HCO3 18.8 L ABG O2 Saturation ABG Base Excess -5.9 L ABG Hemoglobin 7.8 L VBG pH Oxyhemoglobin Sodium Potassium Chloride Carbon Dioxide BUN Creatinine Glucose POC Glucose 171 H 133 H Lactic Acid Calcium AST Alkaline Phosphatase Lactate Dehydrogenase Total Creatine Kinase CK-MB (CK-2) C-Reactive Protein Total Protein Albumin Urine WBC (Auto) Urine Creatinine Urine Total Protein Coronavirus (PCR) 06/01/20 06/01/20 06/02/20 12:28 17:29 00:08 WBC RBC Hgb Hct RDW Lymph % (Auto) [place] % (Auto) Eos % (Auto) Lymph # [place] # Seg Neutrophils % Seg Neuts % (Manual) Lymphocytes % (Manual) Seg Neutrophils # Seg Neutrophils # Man Lymphocytes # (Manual) Monocytes # (Manual) D-Dimer Heparin Anti-Xa Level ABG pH ABG pO2 ABG HCO3 ABG O2 Saturation ABG Base Excess ABG Hemoglobin VBG pH Oxyhemoglobin Sodium Potassium Chloride Carbon Dioxide BUN Creatinine Glucose POC Glucose 199 H 209 H 162 H Lactic Acid Calcium AST Alkaline Phosphatase Lactate Dehydrogenase Total Creatine Kinase CK-MB (CK-2) C-Reactive Protein Total Protein Albumin Urine WBC (Auto) Urine Creatinine Urine Total Protein Coronavirus (PCR) 0806/02/20 06/02/20 04:20 04:20 04:44 WBC RBC Hgb 10.0 L Hct RDW Lymph % (Auto) [place] % (Auto) Eos % (Auto) Lymph # [place] # Seg Neutrophils % Seg Neuts % (Manual) Lymphocytes % (Manual) Seg Neutrophils # Seg Neutrophils # Man Lymphocytes # (Manual) Monocytes # (Manual) D-Dimer Heparin Anti-Xa Level 0.10 L ABG pH ABG pO2 150.6 H ABG HCO3 ABG O2 Saturation ABG Base Excess -4.1 L ABG Hemoglobin 11.8 L VBG pH Oxyhemoglobin Sodium Potassium Chloride Carbon Dioxide BUN Creatinine Glucose POC Glucose Lactic Acid Calcium AST Alkaline Phosphatase Lactate Dehydrogenase Total Creatine Kinase CK-MB (CK-2) C-Reactive Protein Total Protein Albumin Urine WBC (Auto) Urine Creatinine Urine Total Protein Coronavirus (PCR) 06/02/20 06/02/20 06/02/20 05:53 12:04 13:49 WBC RBC Hgb Hct RDW Lymph % (Auto) [place] % (Auto) Eos % (Auto) Lymph # [place] # Seg Neutrophils % Seg Neuts % (Manual) Lymphocytes % (Manual) Seg Neutrophils # Seg Neutrophils # Man Lymphocytes # (Manual) Monocytes # (Manual) D-Dimer Heparin Anti-Xa Level 0.28 L ABG pH ABG pO2 ABG HCO3 ABG O2 Saturation ABG Base Excess ABG Hemoglobin VBG pH Oxyhemoglobin Sodium Potassium Chloride Carbon Dioxide BUN Creatinine Glucose POC Glucose 149 H 220 H Lactic Acid Calcium AST Alkaline Phosphatase Lactate Dehydrogenase Total Creatine Kinase CK-MB (CK-2) C-Reactive Protein Total Protein Albumin Urine WBC (Auto) Urine Creatinine Urine Total Protein Coronavirus (PCR) 06/02/20 06/02/20 06/03/20 13:49 18:31 00:42 WBC RBC Hgb Hct RDW Lymph % (Auto) [place] % (Auto) Eos % (Auto) Lymph # [place] # Seg Neutrophils % Seg Neuts % (Manual) Lymphocytes % (Manual) Seg Neutrophils # Seg Neutrophils # Man Lymphocytes # (Manual) Monocytes # (Manual) D-Dimer 769.68 H Heparin Anti-Xa Level ABG pH ABG pO2 ABG HCO3 ABG O2 Saturation ABG Base Excess ABG Hemoglobin VBG pH Oxyhemoglobin Sodium Potassium Chloride Carbon Dioxide BUN Creatinine Glucose POC Glucose 225 H 212 H Lactic Acid Calcium AST Alkaline Phosphatase Lactate Dehydrogenase Total Creatine Kinase CK-MB (CK-2) C-Reactive Protein Total Protein Albumin Urine WBC (Auto) Urine Creatinine Urine Total Protein Coronavirus (PCR) 06/03/20 06/03/20 06/03/20 05:16 05:16 05:25 WBC 11.4 H RBC Hgb Hct RDW 16.4 H Lymph % (Auto) [place] % (Auto) Eos % (Auto) Lymph # [place] # Seg Neutrophils % Seg Neuts % (Manual) Lymphocytes % (Manual) Seg Neutrophils # Seg Neutrophils # Man Lymphocytes # (Manual) Monocytes # (Manual) D-Dimer Heparin Anti-Xa Level ABG pH ABG pO2 160.9 H ABG HCO3 19.4 L ABG O2 Saturation ABG Base Excess -4.9 L ABG Hemoglobin 7.0 L VBG pH Oxyhemoglobin Sodium Potassium Chloride Carbon Dioxide 18 L BUN 65 H Creatinine 2.0 H Glucose 175 H POC Glucose Lactic Acid Calcium 8.0 L AST Alkaline Phosphatase Lactate Dehydrogenase Total Creatine Kinase CK-MB (CK-2) C-Reactive Protein Total Protein 5.5 L Albumin 2.2 L Urine WBC (Auto) Urine Creatinine Urine Total Protein Coronavirus (PCR) 06/03/20 06/03/20 06/03/20 06:07 11:58 18:24 WBC RBC Hgb Hct RDW Lymph % (Auto) [place] % (Auto) Eos % (Auto) Lymph # [place] # Seg Neutrophils % Seg Neuts % (Manual) Lymphocytes % (Manual) Seg Neutrophils # Seg Neutrophils # Man Lymphocytes # (Manual) Monocytes # (Manual) D-Dimer Heparin Anti-Xa Level ABG pH ABG pO2 ABG HCO3 ABG O2 Saturation ABG Base Excess ABG Hemoglobin VBG pH Oxyhemoglobin Sodium Potassium Chloride Carbon Dioxide BUN Creatinine Glucose POC Glucose 177 H 163 H 211 H Lactic Acid Calcium AST Alkaline Phosphatase Lactate Dehydrogenase Total Creatine Kinase CK-MB (CK-2) C-Reactive Protein Total Protein Albumin Urine WBC (Auto) Urine Creatinine Urine Total Protein Coronavirus (PCR) 06/03/20 06/03/20 06/04/20 21:50 Unknown 00:26 WBC RBC Hgb Hct RDW Lymph % (Auto) [place] % (Auto) Eos % (Auto) Lymph # [place] # Seg Neutrophils % Seg Neuts % (Manual) Lymphocytes % (Manual) Seg Neutrophils # Seg Neutrophils # Man Lymphocytes # (Manual) Monocytes # (Manual) D-Dimer Heparin Anti-Xa Level ABG pH ABG pO2 ABG HCO3 ABG O2 Saturation ABG Base Excess ABG Hemoglobin VBG pH Oxyhemoglobin Sodium 135 L Potassium Chloride Carbon Dioxide 18 L BUN Creatinine Glucose POC Glucose 241 H Lactic Acid Calcium AST Alkaline Phosphatase Lactate Dehydrogenase Total Creatine Kinase CK-MB (CK-2) C-Reactive Protein Total Protein Albumin Urine WBC (Auto) 11.0 H Urine Creatinine Urine Total Protein Coronavirus (PCR) 06/04/20 06/04/20 06/04/20 03:35 04:19 04:19 WBC RBC 3.15 L Hgb 8.9 L Hct 26.8 L D RDW 15.9 H Lymph % (Auto) 6.0 L [place] % (Auto) Eos % (Auto) Lymph # 0.6 L [place] # Seg Neutrophils % 86.6 H Seg Neuts % (Manual) Lymphocytes % (Manual) Seg Neutrophils # 9.1 H Seg Neutrophils # Man Lymphocytes # (Manual) Monocytes # (Manual) D-Dimer Heparin Anti-Xa Level ABG pH 7.331 L ABG pO2 ABG HCO3 ABG O2 Saturation ABG Base Excess -4.7 L ABG Hemoglobin 11.0 L VBG pH Oxyhemoglobin 93.9 L Sodium 136 L Potassium Chloride Carbon Dioxide 20 L BUN 73 H Creatinine 2.0 H Glucose 192 H POC Glucose Lactic Acid Calcium 8.0 L AST Alkaline Phosphatase Lactate Dehydrogenase 271 H Total Creatine Kinase CK-MB (CK-2) C-Reactive Protein 2.20 H Total Protein 5.0 L Albumin 2.0 L Urine WBC (Auto) Urine Creatinine Urine Total Protein Coronavirus (PCR) 06/04/20 06/04/20 06/04/20 04:19 05:51 11:48 WBC RBC Hgb Hct RDW Lymph % (Auto) [place] % (Auto) Eos % (Auto) Lymph # [place] # Seg Neutrophils % Seg Neuts % (Manual) Lymphocytes % (Manual) Seg Neutrophils # Seg Neutrophils # Man Lymphocytes # (Manual) Monocytes # (Manual) D-Dimer 414.52 H Heparin Anti-Xa Level ABG pH ABG pO2 ABG HCO3 ABG O2 Saturation ABG Base Excess ABG Hemoglobin VBG pH Oxyhemoglobin Sodium Potassium Chloride Carbon Dioxide BUN Creatinine Glucose POC Glucose 179 H 213 H Lactic Acid Calcium AST Alkaline Phosphatase Lactate Dehydrogenase Total Creatine Kinase CK-MB (CK-2) C-Reactive Protein Total Protein Albumin Urine WBC (Auto) Urine Creatinine Urine Total Protein Coronavirus (PCR) 06/04/20 06/05/20 06/05/20 18:25 00:16 05:00 WBC RBC Hgb Hct RDW Lymph % (Auto) [place] % (Auto) Eos % (Auto) Lymph # [place] # Seg Neutrophils % Seg Neuts % (Manual) Lymphocytes % (Manual) Seg Neutrophils # Seg Neutrophils # Man Lymphocytes # (Manual) Monocytes # (Manual) D-Dimer Heparin Anti-Xa Level ABG pH 7.286 L ABG pO2 96.2 H ABG HCO3 ABG O2 Saturation ABG Base Excess -6.3 L ABG Hemoglobin 8.8 L VBG pH Oxyhemoglobin 94.8 L Sodium Potassium Chloride Carbon Dioxide BUN Creatinine Glucose POC Glucose 238 H 183 H Lactic Acid Calcium AST Alkaline Phosphatase Lactate Dehydrogenase Total Creatine Kinase CK-MB (CK-2) C-Reactive Protein Total Protein Albumin Urine WBC (Auto) Urine Creatinine Urine Total Protein Coronavirus (PCR) 06/05/20 06/05/20 06/05/20 05:39 07:25 07:25 WBC RBC 2.97 L Hgb 8.7 L Hct 25.7 L RDW 16.0 H Lymph % (Auto) 8.8 L [place] % (Auto) 13.3 H Eos % (Auto) Lymph # 0.8 L [place] # 1.3 H Seg Neutrophils % 77.3 H Seg Neuts % (Manual) Lymphocytes % (Manual) Seg Neutrophils # Seg Neutrophils # Man Lymphocytes # (Manual) Monocytes # (Manual) D-Dimer Heparin Anti-Xa Level ABG pH ABG pO2 ABG HCO3 ABG O2 Saturation ABG Base Excess ABG Hemoglobin VBG pH Oxyhemoglobin Sodium 133 L Potassium Chloride Carbon Dioxide 17 L BUN 89 H Creatinine 2.8 H Glucose 176 H POC Glucose 149 H Lactic Acid Calcium 7.7 L AST Alkaline Phosphatase Lactate Dehydrogenase Total Creatine Kinase CK-MB (CK-2) C-Reactive Protein Total Protein 4.2 L Albumin 1.9 L Urine WBC (Auto) Urine Creatinine Urine Total Protein Coronavirus (PCR) 06/05/20 06/05/20 06/05/20 07:25 12:05 15:41 WBC RBC Hgb Hct RDW Lymph % (Auto) [place] % (Auto) Eos % (Auto) Lymph # [place] # Seg Neutrophils % Seg Neuts % (Manual) Lymphocytes % (Manual) Seg Neutrophils # Seg Neutrophils # Man Lymphocytes # (Manual) Monocytes # (Manual) D-Dimer Heparin Anti-Xa Level 0.76 H 0.81 H ABG pH ABG pO2 ABG HCO3 ABG O2 Saturation ABG Base Excess ABG Hemoglobin VBG pH Oxyhemoglobin Sodium Potassium Chloride Carbon Dioxide BUN Creatinine Glucose POC Glucose 198 H Lactic Acid Calcium AST Alkaline Phosphatase Lactate Dehydrogenase Total Creatine Kinase CK-MB (CK-2) C-Reactive Protein Total Protein Albumin Urine WBC (Auto) Urine Creatinine Urine Total Protein Coronavirus (PCR) 06/05/20 06/05/20 06/06/20 18:08 23:25 04:00 WBC RBC Hgb Hct RDW Lymph % (Auto) [place] % (Auto) Eos % (Auto) Lymph # [place] # Seg Neutrophils % Seg Neuts % (Manual) Lymphocytes % (Manual) Seg Neutrophils # Seg Neutrophils # Man Lymphocytes # (Manual) Monocytes # (Manual) D-Dimer Heparin Anti-Xa Level ABG pH ABG pO2 ABG HCO3 ABG O2 Saturation ABG Base Excess ABG Hemoglobin VBG pH Oxyhemoglobin Sodium Potassium Chloride Carbon Dioxide BUN Creatinine Glucose POC Glucose 223 H 169 H Lactic Acid Calcium AST Alkaline Phosphatase Lactate Dehydrogenase Total Creatine Kinase CK-MB (CK-2) C-Reactive Protein Total Protein Albumin Urine WBC (Auto) 15.0 H Urine Creatinine Urine Total Protein Coronavirus (PCR) 06/06/20 06/06/20 06/06/20 04:00 05:33 05:38 WBC RBC 2.97 L Hgb 8.7 L Hct 26.8 L RDW 16.8 H Lymph % (Auto) [place] % (Auto) Eos % (Auto) Lymph # [place] # Seg Neutrophils % Seg Neuts % (Manual) Lymphocytes % (Manual) Seg Neutrophils # Seg Neutrophils # Man Lymphocytes # (Manual) Monocytes # (Manual) D-Dimer Heparin Anti-Xa Level ABG pH ABG pO2 ABG HCO3 ABG O2 Saturation ABG Base Excess ABG Hemoglobin VBG pH Oxyhemoglobin Sodium Potassium Chloride Carbon Dioxide BUN Creatinine Glucose POC Glucose 186 H Lactic Acid Calcium AST Alkaline Phosphatase Lactate Dehydrogenase Total Creatine Kinase CK-MB (CK-2) C-Reactive Protein Total Protein Albumin Urine WBC (Auto) Urine Creatinine 82.2 H Urine Total Protein 196 H Coronavirus (PCR) 08/29/20 08/29/20 08/29/20 05:38 12:25 17:03 WBC RBC Hgb Hct RDW Lymph % (Auto) [place] % (Auto) Eos % (Auto) Lymph # [place] # Seg Neutrophils % Seg Neuts % (Manual) Lymphocytes % (Manual) Seg Neutrophils # Seg Neutrophils # Man Lymphocytes # (Manual) Monocytes # (Manual) D-Dimer Heparin Anti-Xa Level ABG pH ABG pO2 ABG HCO3 ABG O2 Saturation ABG Base Excess ABG Hemoglobin VBG pH Oxyhemoglobin Sodium 134 L Potassium 5.2 H Chloride Carbon Dioxide 18 L BUN 97 H Creatinine 2.5 H Glucose 193 H POC Glucose 239 H 252 H Lactic Acid Calcium 7.5 L AST Alkaline Phosphatase Lactate Dehydrogenase Total Creatine Kinase CK-MB (CK-2) C-Reactive Protein Total Protein 4.1 L Albumin 1.9 L Urine WBC (Auto) Urine Creatinine Urine Total Protein Coronavirus (PCR) 06/07/20 06/07/20 06/07/20 00:16 01:49 04:00 WBC RBC 2.91 L Hgb 8.4 L Hct 25.0 L RDW 16.1 H Lymph % (Auto) 5.7 L [place] % (Auto) 10.5 H Eos % (Auto) Lymph # 0.6 L [place] # 1.1 H Seg Neutrophils % 83.6 H Seg Neuts % (Manual) Lymphocytes % (Manual) Seg Neutrophils # 9.1 H Seg Neutrophils # Man Lymphocytes # (Manual) Monocytes # (Manual) D-Dimer Heparin Anti-Xa Level 0.26 L ABG pH ABG pO2 ABG HCO3 ABG O2 Saturation ABG Base Excess ABG Hemoglobin VBG pH Oxyhemoglobin Sodium Potassium Chloride Carbon Dioxide BUN Creatinine Glucose POC Glucose 173 H Lactic Acid Calcium AST Alkaline Phosphatase Lactate Dehydrogenase Total Creatine Kinase CK-MB (CK-2) C-Reactive Protein Total Protein Albumin Urine WBC (Auto) Urine Creatinine Urine Total Protein Coronavirus (PCR) 06/07/20 06/07/20 06/07/20 04:00 04:54 05:51 WBC RBC Hgb Hct RDW Lymph % (Auto) [place] % (Auto) Eos % (Auto) Lymph # [place] # Seg Neutrophils % Seg Neuts % (Manual) Lymphocytes % (Manual) Seg Neutrophils # Seg Neutrophils # Man Lymphocytes # (Manual) Monocytes # (Manual) D-Dimer Heparin Anti-Xa Level ABG pH 7.317 L ABG pO2 71.4 L ABG HCO3 ABG O2 Saturation 94.3 L ABG Base Excess -4.8 L ABG Hemoglobin 7.1 L VBG pH Oxyhemoglobin 92.2 L Sodium 133 L Potassium Chloride Carbon Dioxide 18 L BUN 100 H Creatinine 2.5 H Glucose 158 H POC Glucose 168 H Lactic Acid Calcium 7.6 L AST Alkaline Phosphatase Lactate Dehydrogenase Total Creatine Kinase CK-MB (CK-2) C-Reactive Protein Total Protein 4.7 L Albumin 2.0 L Urine WBC (Auto) Urine Creatinine Urine Total Protein Coronavirus (PCR) 06/07/20 06/07/20 06/07/20 12:03 17:17 20:10 WBC RBC Hgb Hct RDW Lymph % (Auto) [place] % (Auto) Eos % (Auto) Lymph # [place] # Seg Neutrophils % Seg Neuts % (Manual) Lymphocytes % (Manual) Seg Neutrophils # Seg Neutrophils # Man Lymphocytes # (Manual) Monocytes # (Manual) D-Dimer Heparin Anti-Xa Level 0.17 L ABG pH ABG pO2 ABG HCO3 ABG O2 Saturation ABG Base Excess ABG Hemoglobin VBG pH Oxyhemoglobin Sodium Potassium Chloride Carbon Dioxide BUN Creatinine Glucose POC Glucose 276 H 281 H Lactic Acid Calcium AST Alkaline Phosphatase Lactate Dehydrogenase Total Creatine Kinase CK-MB (CK-2) C-Reactive Protein Total Protein Albumin Urine WBC (Auto) Urine Creatinine Urine Total Protein Coronavirus (PCR) 06/08/20 06/08/20 06/08/20 00:02 04:47 04:47 WBC 16.4 H RBC 3.07 L Hgb 8.6 L Hct 26.5 L RDW 16.3 H Lymph % (Auto) [place] % (Auto) Eos % (Auto) Lymph # [place] # Seg Neutrophils % Seg Neuts % (Manual) 90.0 H Lymphocytes % (Manual) 3.0 L Seg Neutrophils # Seg Neutrophils # Man 14.8 H Lymphocytes # (Manual) 0.5 L Monocytes # (Manual) 1.1 H D-Dimer Heparin Anti-Xa Level ABG pH ABG pO2 ABG HCO3 ABG O2 Saturation ABG Base Excess ABG Hemoglobin VBG pH Oxyhemoglobin Sodium 129 L Potassium Chloride 95.6 L Carbon Dioxide 17 L BUN 106 H Creatinine 2.5 H Glucose 213 H POC Glucose 242 H Lactic Acid Calcium 7.6 L AST Alkaline Phosphatase Lactate Dehydrogenase Total Creatine Kinase CK-MB (CK-2) C-Reactive Protein Total Protein 5.0 L Albumin 2.1 L Urine WBC (Auto) Urine Creatinine Urine Total Protein Coronavirus (PCR) 06/08/20 06/08/20 06/08/20 05:40 11:55 17:54 WBC RBC Hgb Hct RDW Lymph % (Auto) [place] % (Auto) Eos % (Auto) Lymph # [place] # Seg Neutrophils % Seg Neuts % (Manual) Lymphocytes % (Manual) Seg Neutrophils # Seg Neutrophils # Man Lymphocytes # (Manual) Monocytes # (Manual) D-Dimer Heparin Anti-Xa Level ABG pH ABG pO2 ABG HCO3 ABG O2 Saturation ABG Base Excess ABG Hemoglobin VBG pH Oxyhemoglobin Sodium Potassium Chloride Carbon Dioxide BUN Creatinine Glucose POC Glucose 221 H 218 H 163 H Lactic Acid Calcium AST Alkaline Phosphatase Lactate Dehydrogenase Total Creatine Kinase CK-MB (CK-2) C-Reactive Protein Total Protein Albumin Urine WBC (Auto) Urine Creatinine Urine Total Protein Coronavirus (PCR) 06/08/20 06/09/20 06/09/20 22:01 00:09 05:16 WBC 19.0 H RBC 3.35 L Hgb 9.2 L Hct 28.5 L RDW 16.3 H Lymph % (Auto) [place] % (Auto) Eos % (Auto) Lymph # [place] # Seg Neutrophils % Seg Neuts % (Manual) 85.0 H Lymphocytes % (Manual) 7.0 L Seg Neutrophils # Seg Neutrophils # Man 16.2 H Lymphocytes # (Manual) Monocytes # (Manual) 1.3 H D-Dimer Heparin Anti-Xa Level ABG pH ABG pO2 ABG HCO3 ABG O2 Saturation ABG Base Excess ABG Hemoglobin VBG pH Oxyhemoglobin Sodium Potassium Chloride Carbon Dioxide BUN Creatinine Glucose POC Glucose 182 H 150 H Lactic Acid Calcium AST Alkaline Phosphatase Lactate Dehydrogenase Total Creatine Kinase CK-MB (CK-2) C-Reactive Protein Total Protein Albumin Urine WBC (Auto) Urine Creatinine Urine Total Protein Coronavirus (PCR) 06/09/20 06/09/20 06/09/20 05:16 05:24 11:29 WBC RBC Hgb Hct RDW Lymph % (Auto) [place] % (Auto) Eos % (Auto) Lymph # [place] # Seg Neutrophils % Seg Neuts % (Manual) Lymphocytes % (Manual) Seg Neutrophils # Seg Neutrophils # Man Lymphocytes # (Manual) Monocytes # (Manual) D-Dimer Heparin Anti-Xa Level ABG pH ABG pO2 ABG HCO3 ABG O2 Saturation ABG Base Excess ABG Hemoglobin VBG pH Oxyhemoglobin Sodium 133 L Potassium Chloride Carbon Dioxide 19 L BUN 109 H Creatinine 2.1 H Glucose 133 H POC Glucose 128 H 119 H Lactic Acid Calcium 7.7 L AST Alkaline Phosphatase < 5 L Lactate Dehydrogenase Total Creatine Kinase CK-MB (CK-2) C-Reactive Protein Total Protein 4.6 L Albumin < 0.2 L Urine WBC (Auto) Urine Creatinine Urine Total Protein Coronavirus (PCR) 06/09/20 06/10/20 06/10/20 17:32 00:00 05:49 WBC RBC Hgb Hct RDW Lymph % (Auto) [place] % (Auto) Eos % (Auto) Lymph # [place] # Seg Neutrophils % Seg Neuts % (Manual) Lymphocytes % (Manual) Seg Neutrophils # Seg Neutrophils # Man Lymphocytes # (Manual) Monocytes # (Manual) D-Dimer Heparin Anti-Xa Level 0.19 L ABG pH ABG pO2 ABG HCO3 ABG O2 Saturation ABG Base Excess ABG Hemoglobin VBG pH Oxyhemoglobin Sodium Potassium Chloride Carbon Dioxide BUN Creatinine Glucose POC Glucose 106 H 117 H Lactic Acid Calcium AST Alkaline Phosphatase Lactate Dehydrogenase Total Creatine Kinase CK-MB (CK-2) C-Reactive Protein Total Protein Albumin Urine WBC (Auto) Urine Creatinine Urine Total Protein Coronavirus (PCR) 06/10/20 06/10/20 06/10/20 05:54 07:40 11:40 WBC RBC Hgb Hct RDW Lymph % (Auto) [place] % (Auto) Eos % (Auto) Lymph # [place] # Seg Neutrophils % Seg Neuts % (Manual) Lymphocytes % (Manual) Seg Neutrophils # Seg Neutrophils # Man Lymphocytes # (Manual) Monocytes # (Manual) D-Dimer Heparin Anti-Xa Level ABG pH ABG pO2 ABG HCO3 ABG O2 Saturation ABG Base Excess ABG Hemoglobin VBG pH Oxyhemoglobin Sodium 146 H D Potassium Chloride Carbon Dioxide 20 L BUN 99 H Creatinine 1.9 H Glucose 121 H POC Glucose 127 H 138 H Lactic Acid Calcium 8.2 L AST Alkaline Phosphatase Lactate Dehydrogenase Total Creatine Kinase CK-MB (CK-2) C-Reactive Protein Total Protein Albumin Urine WBC (Auto) Urine Creatinine Urine Total Protein Coronavirus (PCR) 06/10/20 06/10/20 06/10/20 14:44 17:31 23:22 WBC RBC Hgb Hct RDW Lymph % (Auto) [place] % (Auto) Eos % (Auto) Lymph # [place] # Seg Neutrophils % Seg Neuts % (Manual) Lymphocytes % (Manual) Seg Neutrophils # Seg Neutrophils # Man Lymphocytes # (Manual) Monocytes # (Manual) D-Dimer Heparin Anti-Xa Level 0.17 L ABG pH ABG pO2 ABG HCO3 ABG O2 Saturation ABG Base Excess ABG Hemoglobin VBG pH Oxyhemoglobin Sodium Potassium Chloride Carbon Dioxide BUN Creatinine Glucose POC Glucose 128 H 114 H Lactic Acid Calcium AST Alkaline Phosphatase Lactate Dehydrogenase Total Creatine Kinase CK-MB (CK-2) C-Reactive Protein Total Protein Albumin Urine WBC (Auto) Urine Creatinine Urine Total Protein Coronavirus (PCR) 06/11/20 06/11/20 06/11/20 00:22 03:45 03:45 WBC 14.6 H RBC 2.77 L Hgb 7.9 L Hct 24.3 L RDW 16.8 H Lymph % (Auto) 6.6 L [place] % (Auto) 8.5 H Eos % (Auto) Lymph # 1.0 L [place] # 1.2 H Seg Neutrophils % 82.9 H Seg Neuts % (Manual) Lymphocytes % (Manual) Seg Neutrophils # 12.1 H Seg Neutrophils # Man Lymphocytes # (Manual) Monocytes # (Manual) D-Dimer Heparin Anti-Xa Level 0.24 L ABG pH ABG pO2 ABG HCO3 ABG O2 Saturation ABG Base Excess ABG Hemoglobin VBG pH Oxyhemoglobin Sodium Potassium Chloride Carbon Dioxide 20 L BUN 88 H Creatinine 1.5 H Glucose 111 H POC Glucose Lactic Acid Calcium 8.2 L AST Alkaline Phosphatase Lactate Dehydrogenase Total Creatine Kinase CK-MB (CK-2) C-Reactive Protein Total Protein Albumin Urine WBC (Auto) Urine Creatinine Urine Total Protein Coronavirus (PCR) 06/11/20 06/11/20 06/11/20 06:03 10:22 11:11 WBC RBC Hgb Hct RDW Lymph % (Auto) [place] % (Auto) Eos % (Auto) Lymph # [place] # Seg Neutrophils % Seg Neuts % (Manual) Lymphocytes % (Manual) Seg Neutrophils # Seg Neutrophils # Man Lymphocytes # (Manual) Monocytes # (Manual) D-Dimer Heparin Anti-Xa Level 0.26 L ABG pH ABG pO2 ABG HCO3 ABG O2 Saturation ABG Base Excess ABG Hemoglobin 9.6 L VBG pH Oxyhemoglobin Sodium Potassium Chloride Carbon Dioxide BUN Creatinine Glucose POC Glucose 114 H Lactic Acid Calcium AST Alkaline Phosphatase Lactate Dehydrogenase Total Creatine Kinase CK-MB (CK-2) C-Reactive Protein Total Protein Albumin Urine WBC (Auto) Urine Creatinine Urine Total Protein Coronavirus (PCR) 06/11/20 06/11/20 06/12/20 12:24 17:24 00:21 WBC RBC Hgb Hct RDW Lymph % (Auto) [place] % (Auto) Eos % (Auto) Lymph # [place] # Seg Neutrophils % Seg Neuts % (Manual) Lymphocytes % (Manual) Seg Neutrophils # Seg Neutrophils # Man Lymphocytes # (Manual) Monocytes # (Manual) D-Dimer Heparin Anti-Xa Level ABG pH ABG pO2 ABG HCO3 ABG O2 Saturation ABG Base Excess ABG Hemoglobin VBG pH Oxyhemoglobin Sodium Potassium Chloride Carbon Dioxide BUN Creatinine Glucose POC Glucose 119 H 126 H 117 H Lactic Acid Calcium AST Alkaline Phosphatase Lactate Dehydrogenase Total Creatine Kinase CK-MB (CK-2) C-Reactive Protein Total Protein Albumin Urine WBC (Auto) Urine Creatinine Urine Total Protein Coronavirus (PCR) 06/12/20 06/12/20 06/12/20 02:46 02:46 05:46 WBC 13.2 H RBC 2.83 L Hgb 8.3 L Hct 24.3 L RDW 16.6 H Lymph % (Auto) 6.2 L [place] % (Auto) 9.5 H Eos % (Auto) Lymph # 0.8 L [place] # 1.3 H Seg Neutrophils % 81.9 H Seg Neuts % (Manual) Lymphocytes % (Manual) Seg Neutrophils # 10.9 H Seg Neutrophils # Man Lymphocytes # (Manual) Monocytes # (Manual) D-Dimer Heparin Anti-Xa Level ABG pH ABG pO2 ABG HCO3 ABG O2 Saturation ABG Base Excess ABG Hemoglobin VBG pH Oxyhemoglobin Sodium Potassium 3.5 L Chloride Carbon Dioxide BUN 77 H Creatinine 1.3 H Glucose POC Glucose 132 H Lactic Acid Calcium 8.3 L AST Alkaline Phosphatase Lactate Dehydrogenase Total Creatine Kinase CK-MB (CK-2) C-Reactive Protein Total Protein Albumin Urine WBC (Auto) Urine Creatinine Urine Total Protein Coronavirus (PCR) 06/12/20 06/12/20 06/12/20 09:20 12:16 17:48 WBC RBC Hgb Hct RDW Lymph % (Auto) [place] % (Auto) Eos % (Auto) Lymph # [place] # Seg Neutrophils % Seg Neuts % (Manual) Lymphocytes % (Manual) Seg Neutrophils # Seg Neutrophils # Man Lymphocytes # (Manual) Monocytes # (Manual) D-Dimer Heparin Anti-Xa Level ABG pH ABG pO2 91.1 H ABG HCO3 ABG O2 Saturation ABG Base Excess ABG Hemoglobin VBG pH Oxyhemoglobin 94.8 L Sodium Potassium Chloride Carbon Dioxide BUN Creatinine Glucose POC Glucose 167 H 182 H Lactic Acid Calcium AST Alkaline Phosphatase Lactate Dehydrogenase Total Creatine Kinase CK-MB (CK-2) C-Reactive Protein Total Protein Albumin Urine WBC (Auto) Urine Creatinine Urine Total Protein Coronavirus (PCR) 06/13/20 06/13/20 06/13/20 00:08 05:37 09:09 WBC RBC Hgb Hct RDW Lymph % (Auto) [place] % (Auto) Eos % (Auto) Lymph # [place] # Seg Neutrophils % Seg Neuts % (Manual) Lymphocytes % (Manual) Seg Neutrophils # Seg Neutrophils # Man Lymphocytes # (Manual) Monocytes # (Manual) D-Dimer Heparin Anti-Xa Level 0.86 H ABG pH ABG pO2 ABG HCO3 ABG O2 Saturation ABG Base Excess ABG Hemoglobin VBG pH Oxyhemoglobin Sodium Potassium Chloride Carbon Dioxide BUN Creatinine Glucose POC Glucose 142 H 119 H Lactic Acid Calcium AST Alkaline Phosphatase Lactate Dehydrogenase Total Creatine Kinase CK-MB (CK-2) C-Reactive Protein Total Protein Albumin Urine WBC (Auto) Urine Creatinine Urine Total Protein Coronavirus (PCR) 06/13/20 06/13/20 06/13/20 17:55 21:17 21:17 WBC RBC Hgb Hct RDW Lymph % (Auto) [place] % (Auto) Eos % (Auto) Lymph # [place] # Seg Neutrophils % Seg Neuts % (Manual) Lymphocytes % (Manual) Seg Neutrophils # Seg Neutrophils # Man Lymphocytes # (Manual) Monocytes # (Manual) D-Dimer Heparin Anti-Xa Level 0.72 H ABG pH ABG pO2 ABG HCO3 ABG O2 Saturation ABG Base Excess ABG Hemoglobin VBG pH Oxyhemoglobin Sodium Potassium Chloride Carbon Dioxide BUN 61 H Creatinine Glucose 131 H POC Glucose 174 H Lactic Acid Calcium AST Alkaline Phosphatase Lactate Dehydrogenase Total Creatine Kinase CK-MB (CK-2) C-Reactive Protein Total Protein Albumin Urine WBC (Auto) Urine Creatinine Urine Total Protein Coronavirus (PCR) 06/13/20 06/14/20 06/14/20 23:50 05:34 06:11 WBC RBC Hgb Hct RDW Lymph % (Auto) [place] % (Auto) Eos % (Auto) Lymph # [place] # Seg Neutrophils % Seg Neuts % (Manual) Lymphocytes % (Manual) Seg Neutrophils # Seg Neutrophils # Man Lymphocytes # (Manual) Monocytes # (Manual) D-Dimer Heparin Anti-Xa Level ABG pH ABG pO2 ABG HCO3 ABG O2 Saturation ABG Base Excess ABG Hemoglobin VBG pH Oxyhemoglobin Sodium 146 H Potassium Chloride 107.6 H Carbon Dioxide BUN 61 H Creatinine 1.3 H Glucose 135 H POC Glucose 146 H 141 H Lactic Acid Calcium AST Alkaline Phosphatase Lactate Dehydrogenase Total Creatine Kinase CK-MB (CK-2) C-Reactive Protein Total Protein Albumin Urine WBC (Auto) Urine Creatinine Urine Total Protein Coronavirus (PCR) 06/14/20 06/14/20 06/14/20 09:28 11:30 16:07 WBC RBC Hgb Hct RDW Lymph % (Auto) [place] % (Auto) Eos % (Auto) Lymph # [place] # Seg Neutrophils % Seg Neuts % (Manual) Lymphocytes % (Manual) Seg Neutrophils # Seg Neutrophils # Man Lymphocytes # (Manual) Monocytes # (Manual) D-Dimer Heparin Anti-Xa Level 0.90 H 0.82 H ABG pH ABG pO2 ABG HCO3 ABG O2 Saturation ABG Base Excess ABG Hemoglobin VBG pH Oxyhemoglobin Sodium Potassium Chloride Carbon Dioxide BUN Creatinine Glucose POC Glucose 186 H Lactic Acid Calcium AST Alkaline Phosphatase Lactate Dehydrogenase Total Creatine Kinase CK-MB (CK-2) C-Reactive Protein Total Protein Albumin Urine WBC (Auto) Urine Creatinine Urine Total Protein Coronavirus (PCR) 06/14/20 06/14/20 06/15/20 18:16 23:51 04:24 WBC RBC 2.75 L Hgb 7.9 L Hct 24.0 L RDW 16.4 H Lymph % (Auto) 12.9 L [place] % (Auto) 8.7 H Eos % (Auto) 4.6 H Lymph # 1.1 L [place] # Seg Neutrophils % 73.2 H Seg Neuts % (Manual) Lymphocytes % (Manual) Seg Neutrophils # Seg Neutrophils # Man Lymphocytes # (Manual) Monocytes # (Manual) D-Dimer Heparin Anti-Xa Level ABG pH ABG pO2 ABG HCO3 ABG O2 Saturation ABG Base Excess ABG Hemoglobin VBG pH Oxyhemoglobin Sodium Potassium Chloride Carbon Dioxide BUN Creatinine Glucose POC Glucose 106 H 154 H Lactic Acid Calcium AST Alkaline Phosphatase Lactate Dehydrogenase Total Creatine Kinase CK-MB (CK-2) C-Reactive Protein Total Protein Albumin Urine WBC (Auto) Urine Creatinine Urine Total Protein Coronavirus (PCR) 06/15/20 06/15/20 04:24 05:59 WBC RBC Hgb Hct RDW Lymph % (Auto) [place] % (Auto) Eos % (Auto) Lymph # [place] # Seg Neutrophils % Seg Neuts % (Manual) Lymphocytes % (Manual) Seg Neutrophils # Seg Neutrophils # Man Lymphocytes # (Manual) Monocytes # (Manual) D-Dimer Heparin Anti-Xa Level ABG pH ABG pO2 ABG HCO3 ABG O2 Saturation ABG Base Excess ABG Hemoglobin VBG pH Oxyhemoglobin Sodium Potassium 3.4 L Chloride Carbon Dioxide BUN 55 H Creatinine 1.3 H Glucose 142 H POC Glucose 131 H Lactic Acid Calcium AST Alkaline Phosphatase Lactate Dehydrogenase Total Creatine Kinase CK-MB (CK-2) C-Reactive Protein Total Protein Albumin Urine WBC (Auto) Urine Creatinine Urine Total Protein Coronavirus (PCR) Allied health notes reviewed: RT
--- NOTE | 2020-06-15 12:51 | Progress Note ---
Assessment and Plan -- Acute hypoxemic respiratory failure From COVID-19 viral infection extubated now, on high flow o2 -- s/p PEA Cardiac arrest Cardiology team on board Conservative management as per cardiology -- Acute metabolic encephalopathy, POA likely from sepsis and s/p cardiac arrest with possible anoxic injury -- Acute renal failure likely ATN Cr slowly improving Avoid ACEI and other nephrotoxic medications Nephrology following -- Coronavirus infection with b/l PNA Completed remdesivir on 06/02 Continue dexamethasone - Last dose 06/07 ID recs appreciated. Maintained on ventilator --Klebsiella pneumonia: S to cefepime, continue --CHF (congestive heart failure) Cardiology following. Ef 45% -- Coffee ground emesis -Stress ulcers Possible stress ulcers On PPI H/H remains stable GI evaluation if Hb drops again -- Hypertension Continue amlodipine, coreg, clonidine and hydralazine Monitor BP --Mild LFT elevation: likely from COVID-19. -- DVT prophylaxis SCD to bilateral lower extremities while in bed Heparin -- Advance care planning Patient is full code. poor prognosis Brief History; 64 YO Female with a medical history of HTN, Diastolic CHF, Pulmonary HTN, DM, Obesity Hypoventilation Syndrome presents to ED for evaluation of shortness of breath. Patients history taken from EMS staff, ED staff. As per staff, the EMS was notified for difficulty breathing. Upon arrival to the patient's home the patient was found to be in distress and was subsequently transported to [facility] for further evaluation and care. In route to [facility] the patient developed cardiac arrest and was treated in accordance with ACLS protocol with return of ROSC Patient was seen and evaluated in the emergency department and was found to have acute hypoxemic respiratory failure status post cardiac arrest. Patient was intubated and placed on ventilatory support. Patient admitted to ICU due to increased risk of decompensation. Critical care team consulted in ED. She was found to have COVID-19 iinfection and was started on steroids and remdesivir. ID was consulted. Cardiology was consulted for her systolic heart failure and cardiac arrest. 06/01. Patient remains intubated and on ventilatory support today. Patient has multiple organ system failure and has poor prognosis. Patient did not experience significant medical decompensation overnight but no improvement with current therapy. 06/02. Remains intubated. her BP is elevated. Started on nicardipine drip. Cardiology following. 06/03-06/04. BP is better. Hb stable. Completed remdesivir. ID , Cardiology and Critical care team on board 06/05. Bump in creatinine. I/O reviewed. Nephrology consulted. 06/06. Has slight improvement in renal function. Nephrology on board. On SBT today. Vitals stable. 06/07. Stable renal function. No need for HD as per nephrology. She is making urine. Plan for SBT. 06/08. Off sedation and very lethargic. Her BUN is going up - effect of steroids vs GI bleed. Her hemoglobin remains stable. Will check stool guaiac. Nephrology is following. WBC bumped to 16 today. 06/09: remains intubated, wbc trended up, Cr slightly trending down. cont TF, wean off vent as tolerated. 06/10: Cr trending down, cont to wean off vent as tolerated. 06/10; Cr much improved, cont iv fluid, tolerating tube feeding. stopped vac, iv cefepime for total 10 days. 06/11; creatinine 1.5 today, sodium level has normalized. Continue tube feeding, continue cefepime for 10 days. Continue to wean off as tolerated. 06/12: planned for extubation today 06/13: extubated yesterday, now on Bipap 06/14: patient on Bipap, remains on TF, restraint. cont to follow clinically 06/15: patient on high flow O2,remains on TF, restraint. cont to follow clinically. transfer to [facility] Subjective Date of service: 06/15/20 Principal diagnosis: Ac hypoxemic resp failure; COVID-19; pneumonia; CHF; Pulm H TN; OHS; DM II Interval history: Patient seen and examined Vitals reviewed, confused Patient on hogh flow O2 Tolerating tube feeding Discussed with RN at the bedside Objective - Exam Narrative Exam: General appearance: Present: obese, other (on high flow o2) - EENT Eyes: Present: PERRL - Neck Neck: Present: supple - Cardiovascular Rhythm: regular Heart Sounds: Present: S1 & S2 - Extremities Extremities: No edema - Abdominal General gastrointestinal: soft, non-tender, non-distended - Neurologic Neurologic: alert and awake, no focal deficit, confused Skin: No rash warm and dry Musculoskeletal: No joint effusion or erythema Psychiatric: agitated on restraint - Constitutional Vitals: Vital Signs - 12hr 06/15/20 06/15/20 06/15/20 01:00 01:30 02:00 Temperature Pulse Rate 71 69 68 Pulse Rate [ From Monitor] Respiratory 14 15 14 Rate Blood Pressure 119/47 121/45 131/52 O2 Sat by Pulse 100 100 100 Oximetry 06/15/20 06/15/20 06/15/20 02:30 03:00 03:30 Temperature Pulse Rate 68 68 70 Pulse Rate [ From Monitor] Respiratory 16 13 12 Rate Blood Pressure 124/48 132/54 118/46 O2 Sat by Pulse 100 100 100 Oximetry 06/15/20 06/15/20 06/15/20 04:00 04:01 04:31 Temperature 98.9 F Pulse Rate 70 79 Pulse Rate [ 84 From Monitor] Respiratory 18 12 15 Rate Blood Pressure 127/52 118/46 O2 Sat by Pulse 98 100 99 Oximetry 06/15/20 06/15/20 06/15/20 05:00 05:15 05:30 Temperature Pulse Rate 70 70 Pulse Rate [ From Monitor] Respiratory 12 19 Rate Blood Pressure 137/53 145/55 O2 Sat by Pulse 100 100 99 Oximetry 06/15/20 06/15/20 06/15/20 06:01 06:30 07:00 Temperature Pulse Rate 70 71 71 Pulse Rate [ From Monitor] Respiratory 10 L 16 11 L Rate Blood Pressure 140/57 131/60 125/56 O2 Sat by Pulse 99 100 99 Oximetry 06/15/20 06/15/20 06/15/20 07:17 07:18 07:31 Temperature Pulse Rate 71 Pulse Rate [ From Monitor] Respiratory 10 L Rate Blood Pressure 125/56 125/52 138/57 O2 Sat by Pulse 99 Oximetry 06/15/20 06/15/20 06/15/20 08:00 08:31 08:58 Temperature 97.6 F Pulse Rate 67 72 Pulse Rate [ From Monitor] Respiratory 12 10 L Rate Blood Pressure 151/55 152/58 O2 Sat by Pulse 100 98 99 Oximetry 06/15/20 06/15/20 06/15/20 09:01 09:28 09:31 Temperature Pulse Rate 77 97 H 77 Pulse Rate [ From Monitor] Respiratory 18 16 Rate Blood Pressure 138/53 138/53 145/62 O2 Sat by Pulse 98 96 Oximetry 06/15/20 06/15/20 06/15/20 10:01 10:31 11:00 Temperature Pulse Rate 82 78 81 Pulse Rate [ From Monitor] Respiratory 12 17 15 Rate Blood Pressure 156/60 154/56 161/59 O2 Sat by Pulse 99 98 98 Oximetry 06/15/20 11:31 Temperature Pulse Rate 72 Pulse Rate [ From Monitor] Respiratory 16 Rate Blood Pressure 143/53 O2 Sat by Pulse 98 Oximetry - Labs CBC & Chem 7: 06/15/20 04:24 06/16/20 09:15 Labs: Abnormal lab results 06/14/20 06/14/20 06/14/20 Range/Units 11:30 16:07 18:16 RBC (3.65-5.03) M/mm3 Hgb (10.1-14.3) gm/dl Hct (30.3-42.9) % RDW (13.2-15.2) % Lymph % (Auto) (13.4-35.0) % Cameron % (Auto) (0.0-7.3) % Eos % (Auto) (0.0-4.3) % Lymph # (1.2-5.4) K/mm3 Seg Neutrophils % (40.0-70.0) % Heparin Anti-Xa Level 0.82 H (0.3-0.7) U.I./ml Potassium (3.6-5.0) mmol/L BUN (7-17) mg/dL Creatinine (0.6-1.2) mg/dL Glucose (65-100) mg/dL POC Glucose 186 H 106 H (70-105) 06/14/20 06/15/20 06/15/20 Range/Units 23:51 04:24 04:24 RBC 2.75 L (3.65-5.03) M/mm3 Hgb 7.9 L (10.1-14.3) gm/dl Hct 24.0 L (30.3-42.9) % RDW 16.4 H (13.2-15.2) % Lymph % (Auto) 12.9 L (13.4-35.0) % Cameron % (Auto) 8.7 H (0.0-7.3) % Eos % (Auto) 4.6 H (0.0-4.3) % Lymph # 1.1 L (1.2-5.4) K/mm3 Seg Neutrophils % 73.2 H (40.0-70.0) % Heparin Anti-Xa Level (0.3-0.7) U.I./ml Potassium 3.4 L (3.6-5.0) mmol/L BUN 55 H (7-17) mg/dL Creatinine 1.3 H (0.6-1.2) mg/dL Glucose 142 H (65-100) mg/dL POC Glucose 154 H (70-105) 06/15/20 Range/Units 05:59 RBC (3.65-5.03) M/mm3 Hgb (10.1-14.3) gm/dl Hct (30.3-42.9) % RDW (13.2-15.2) % Lymph % (Auto) (13.4-35.0) % Cameron % (Auto) (0.0-7.3) % Eos % (Auto) (0.0-4.3) % Lymph # (1.2-5.4) K/mm3 Seg Neutrophils % (40.0-70.0) % Heparin Anti-Xa Level (0.3-0.7) U.I./ml Potassium (3.6-5.0) mmol/L BUN (7-17) mg/dL Creatinine (0.6-1.2) mg/dL Glucose (65-100) mg/dL POC Glucose 131 H (70-105)
--- NOTE | 2020-06-15 14:07 | Progress Note ---
Assessment and Plan - Patient Problems (1) Acute kidney injury (AVANI) with acute tubular necrosis (ATN) Current Visit: Yes Status: Acute Plan to address problem: Kidney function has been improving. Patient is nonoliguric. Kidney function is now improving. Follow-up electrolytes and renal function (2) Hypernatremia Current Visit: Yes Status: Acute Plan to address problem: [place] o hold. Increase free water intake and follow up Sodium (3) Acute hypoxemic respiratory failure Current Visit: Yes Status: Acute Plan to address problem: Being managed by pulmonary. S/p Extubation (4) Cardiac arrest Current Visit: Yes Status: Acute Plan to address problem: Patient is improving (5) Metabolic encephalopathy Current Visit: Yes Status: Acute Plan to address problem: Mental status is improving (6) Pneumonia due to COVID-19 virus Current Visit: Yes Status: Acute Plan to address problem: Patient has completed 5 days of Remdesevir. Completed course of steroids. Patient is improving (7) Cardiomyopathy Current Visit: No Status: Acute Qualifiers: Cardiomyopathy type: unspecified Qualified Code(s): I42.9 - Cardiomyopathy, unspecified Plan to address problem: OLasix has been stopped Patient is stable (8) Hyperglycemia due to type 2 diabetes mellitus Current Visit: No Status: Acute Qualifiers: Diabetes mellitus intermediate project manager insulin use: without intermediate project manager use Qualified Code(s): E11.65 - Type 2 diabetes mellitus with hyperglycemia Plan to address problem: Blood sugar management by primary attending Subjective Date of service: 06/15/20 Principal diagnosis: Ac hypoxemic resp failure; COVID-19; pneumonia; CHF; Pulm HTN; OHS; DM II Interval history: SARS Corovirus 2 positive status. 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 Reviewed clinical data, nurses notes, and Physician notes. Defer Physical examination to the Primary Attending MD. Ext ubated. Still on restraints. Objective - Exam Narrative Exam: Patient was not examined today due to PPE conservation given the COVID-19 pandemic. Middle-aged female lying in bed in Patient on high flow O2,remains on TF, restraint. - Vital Signs Vital signs: Vital Signs - 12hr 06/15/20 06/15/20 06/15/20 02:30 03:00 03:30 Temperature Pulse Rate 68 68 70 Pulse Rate [ From Monitor] Respiratory 16 13 12 Rate Blood Pressure 124/48 132/54 118/46 O2 Sat by Pulse 100 100 100 Oximetry 06/15/20 06/15/20 06/15/20 04:00 04:01 04:31 Temperature 98.9 F Pulse Rate 70 79 Pulse Rate [ 84 From Monitor] Respiratory 18 12 15 Rate Blood Pressure 127/52 118/46 O2 Sat by Pulse 98 100 99 Oximetry 06/15/20 06/15/20 06/15/20 05:00 05:15 05:30 Temperature Pulse Rate 70 70 Pulse Rate [ From Monitor] Respiratory 12 19 Rate Blood Pressure 137/53 145/55 O2 Sat by Pulse 100 100 99 Oximetry 06/15/20 06/15/20 06/15/20 06:01 06:30 07:00 Temperature Pulse Rate 70 71 71 Pulse Rate [ From Monitor] Respiratory 10 L 16 11 L Rate Blood Pressure 140/57 131/60 125/56 O2 Sat by Pulse 99 100 99 Oximetry 06/15/20 06/15/20 06/15/20 07:17 07:18 07:31 Temperature Pulse Rate 71 Pulse Rate [ From Monitor] Respiratory 10 L Rate Blood Pressure 125/56 125/52 138/57 O2 Sat by Pulse 99 Oximetry 06/15/20 06/15/20 06/15/20 08:00 08:31 08:58 Temperature 97.6 F Pulse Rate 67 72 Pulse Rate [ From Monitor] Respiratory 12 10 L Rate Blood Pressure 151/55 152/58 O2 Sat by Pulse 100 98 99 Oximetry 06/15/20 06/15/20 06/15/20 09:01 09:28 09:31 Temperature Pulse Rate 77 97 H 77 Pulse Rate [ From Monitor] Respiratory 18 16 Rate Blood Pressure 138/53 138/53 145/62 O2 Sat by Pulse 98 96 Oximetry 06/15/20 06/15/20 06/15/20 10:01 10:31 11:00 Temperature Pulse Rate 82 78 81 Pulse Rate [ From Monitor] Respiratory 12 17 15 Rate Blood Pressure 156/60 154/56 161/59 O2 Sat by Pulse 99 98 98 Oximetry 06/15/20 06/15/20 11:31 12:00 Temperature 97.7 F Pulse Rate 72 Pulse Rate [ From Monitor] Respiratory 16 Rate Blood Pressure 143/53 O2 Sat by Pulse 98 Oximetry - Lab 06/15/20 04:24 06/15/20 04:24 Most recent lab results ABG pH 7.409 pH Units (7.350-7.450) 06/12/20 09:20 ABG pCO2 42.0 mm Hg 06/12/20 09:20 ABG pO2 91.1 mm Hg (80.0-90.0) H 06/12/20 09:20 ABG HCO3 25.9 mmol/L (20.0-26.0) 06/12/20 09:20 ABG O2 Saturation 97.0 % (95.0-99.0) 06/12/20 09:20 Calcium 9.1 mg/dL (8.4-10.2) 06/15/20 04:24 Urine Creatinine 82.2 mg/dL (0.1-20.0) H 06/06/20 04:00 Urine Sodium 20 mmol/L 06/06/20 04:00 Urine Total Protein 196 mg/dL (5-11.8) H 06/06/20 04:00 Medications & Allergies - Medications Allergies/Adverse Reactions: Allergies No Known Allergies Allergy (Verified 01/21/20 12:28) Home Medications: Home Medications Medication Instructions Recorded Confirmed Last Taken Type AtorvaSTATin [Lipitor] 20 mg PO QHS 05/12/20 05/29/20 Unknown History lisinopriL [Zestril TAB] 40 mg PO QDAY 05/12/20 05/29/20 Unknown History metFORMIN [Glucophage] 850 mg PO BID 05/12/20 05/29/20 Unknown History Acetaminophen [Acetaminophen TAB] 650 mg PO Q4H PRN tablet 05/13/20 05/29/20 Unknown Rx Dicyclomine [Bentyl] 20 mg PO BID #20 tablet 05/13/20 05/29/20 Unknown Rx Famotidine [Pepcid] 20 mg PO BID #30 tablet 05/13/20 05/29/20 Unknown Rx carvediloL [Coreg] 6.25 mg PO BID #60 05/13/20 05/29/20 Unknown Rx Active Medications: Generic Name Dose Route Start Last Admin Trade Name Freq PRN Reason Stop Dose Admin Acetaminophen 650 mg 06/09/20 10:57 06/09/20 20:28 Tylenol FEEDTUBE 650 mg Q6H PRN Administration Fever >101 Amlodipine Besylate 10 mg 06/02/20 11:00 06/15/20 09:31 Amlodipine PO 10 mg DAILY NELSON Administration Lipase/Protease/Amylase 1 each 05/29/20 13:39 Pancreaze 10,500 Unit FEEDTUBE PRN PRN For Clogged Feeding Tube Carvedilol 12.5 mg 06/03/20 10:00 06/15/20 09:28 Coreg PO 12.5 mg BID NELSON Administration Clonidine HCl 0.1 mg 06/04/20 06:00 06/15/20 07:18 Catapres PO 0.1 mg Q8HR NELSON Administration Clonidine HCl 0.2 mg 06/04/20 06:00 06/15/20 07:18 Catapres PO 0.2 mg Q8HR NELSON Administration Glycopyrrolate 2 mg 06/09/20 14:00 06/15/20 07:17 Glycopyrrolate PO 2 mg TID NELSON Administration Hydralazine HCl 50 mg 06/03/20 09:00 06/15/20 07:17 Apresoline PO 50 mg Q8HR NELSON Administration Hydrophilic Ointment 1 applic 05/28/20 13:49 Vaseline Lip Therapy TP Q2HR PRN Dry Lips Heparin Sodium/Sodium Chloride 25,000 unit in 500 mls @ 30 mls/hr 05/29/20 15:00 06/15/20 09:30 Heparin/ 0.45% Nacl-25,000 Unit/500 Ml IV 1,550 units/hr TITR NELSON 31 mls/hr Administration Protocol 1,500 UNITS/HR Nicardipine HCl 50 mg/ Sodium 250 mls @ 25 mls/hr 06/02/20 09:00 06/02/20 11:23 Chloride IV 0 mg/hr TITR NELSON 0 mls/hr Titration Protocol 5 MG/HR Cefepime HCl 2 gm in 100 mls @ 200 mls/hr 06/11/20 10:00 06/15/20 09:28 Cefepime/Ns 2 Gm/100 Ml IV 06/18/20 12:00 200 mls/hr Q12HR NELSON Administration Protocol Insulin Glargine 10 units 06/08/20 22:00 06/14/20 23:30 Lantus SUB-Q 10 units QHS NELSON Administration Insulin Human Lispro 0 unit 05/29/20 18:00 06/15/20 06:40 Humalog SUB-Q Not Given Q6H NELSON Protocol Labetalol HCl 20 mg 06/03/20 09:00 06/08/20 23:51 Labetalol IV 20 mg Q4H PRN Administration HYPERTENSION Lansoprazole 30 mg 06/05/20 22:00 06/15/20 09:43 Prevacid Solutab FEEDTUBE 30 mg BID NELSON Administration Levetiracetam 500 mg 05/29/20 22:00 06/15/20 09:29 Keppra PO 500 mg BID NELSON Administration Metoclopramide HCl 10 mg 06/10/20 20:00 06/15/20 09:43 Reglan IV 10 mg Q6H NELSON Administration Multi-Ingred Cream/Lotion/Oil/Oint 1 applic 05/28/20 13:49 Artificial Tears Ophth Oint OU Q4HR PRN Dry Eye(s) Ondansetron HCl 4 mg 06/02/20 09:00 06/09/20 16:48 Zofran IV 4 mg Q8H PRN Administration Nausea And Vomiting Quetiapine Fumarate 50 mg 06/14/20 22:00 06/14/20 21:03 Seroquel PO 50 mg QHS NELSON Administration Scopolamine 1 each 06/05/20 14:00 06/14/20 09:42 Transderm-Scop TD 1 each Q3D NELSON Administration Senna 17.6 mg 06/03/20 10:00 06/15/20 09:27 Senokot FEEDTUBE 17.6 mg BID NELSON Administration Simple Syrup 15 ml 05/29/20 13:39 Simple Syrup FEEDTUBE PRN PRN Hypoglycemia Simple Syrup 30 ml 05/29/20 13:39 Simple Syrup FEEDTUBE PRN PRN Hypoglycemia Sodium Bicarbonate 325 mg 05/29/20 13:39 Sodium Bicarbonate FEEDTUBE PRN PRN For Clogged Feeding Tube Sodium Bicarbonate 650 mg 06/06/20 10:00 06/15/20 09:43 Sodium Bicarbonate PO 650 mg BID NELSON Administration Sodium Chloride 10 ml 05/28/20 22:00 06/14/20 23:41 Sodium Chloride Flush Syringe 10 Ml IV 10 ml BID NELSON Administration Sodium Chloride 10 ml 05/28/20 19:08 06/13/20 09:04 Sodium Chloride Flush Syringe 10 Ml IV 10 ml PRN PRN Administration LINE FLUSH
[2020-06-15] MEDS: QUEtiapine 25 MG TAB PO SCH (21:34)
[2020-06-15] MEDS: INSULIN GLARGINE 100 UNITS/ML SUB-Q SCH (21:39)
[2020-06-16] MEDS: HEPARIN/ 0.45% NACL DRIP 25,000 UNIT/500 ML BAG IV SCH ×3 (02:31→22:53)
[2020-06-16] MEDS: METOCLOPRAMIDE 10 MG/2 ML INJ IV SCH ×4 (06:31→21:27)
[2020-06-16] MEDS: cloNIDine 0.2 MG TAB PO SCH ×3 (06:55→21:27)
[2020-06-16] MEDS: hydrALAZINE 25 MG TAB PO SCH ×3 (06:56→21:28)
[2020-06-16] MEDS: cloNIDine 0.1 MG TAB PO SCH ×3 (06:56→21:27)
[2020-06-16] MEDS: INSULIN LISPRO 100 UNIT/ML VIAL 3 mL SUB-Q SCH ×4 (07:56→17:49)
[2020-06-16] MEDS: GLYCOPYRROLATE 2 MG TAB PO SCH ×3 (08:53→21:28)
[2020-06-16] MEDS: CEFEPIME/NS 2 GM/100 ML 2 GM/100 ML BAG IV SCH ×2 (10:12→21:28)
[2020-06-16] MEDS: SODIUM BICARBONATE 650 MG TAB PO SCH ×2 (10:13→21:27)
[2020-06-16] MEDS: carvediloL 12.5 MG TAB PO SCH ×2 (10:13→21:26)
[2020-06-16] MEDS: LANSOPRAZOLE 30 MG SOLUTAB FEEDTUBE SCH ×2 (10:14→21:27)
[2020-06-16] MEDS: amLODIPine 10 MG TAB PO SCH (10:15)
[2020-06-16] MEDS: SENNOSIDES ORAL LIQD 8.8 MG/5 ML ORAL LIQD FEEDTUBE SCH ×2 (10:15→21:27)
[2020-06-16] MEDS: levETIRAcetam 500 MG TAB PO SCH ×2 (10:23→10:44)
[2020-06-16] MEDS: levETIRAcetam 500 MG/5 ML ORAL LIQD PO SCH ×2 (10:45→21:27)
--- NOTE | 2020-06-16 11:45 | Progress Note ---
Assessment and Plan Patient sleeping at this time. Patient is On vapotherm ,FIO2 30% and O2 saturation running 97%. No acute respiratory distress at rest. Patient morbidly Obese. Patient posive for COVID Virus infection. Patient afebrile. No leukocytosis. Patient is on Cefepime, I/V heparin and prevacid. Chest xray done 06/13/20 reported Persistent increased bronchovascular markings - Patient Problems (1) Acute hypoxemic respiratory failure Current Visit: Yes Status: Acute Plan to address problem: Patient is on Vapotherm, FIO2 30%. (2) Coronavirus infection Current Visit: Yes Status: Acute Plan to address problem: Patient is on I/V heaparin. Management as per infectious diseases. (3) Acute kidney injury (AVANI) with acute tubular necrosis (ATN) Current Visit: Yes Status: Acute Plan to address problem: Management as per nephrology. (4) CHF (congestive heart failure) Current Visit: Yes Status: Acute Qualifiers: Heart failure type: systolic Heart failure chronicity: acute Qualified Code(s): I50.21 - Acute systolic (congestive) heart failure Plan to address problem: Management as per cardiology. (5) Cardiac arrest Current Visit: Yes Status: Acute Plan to address problem: Patient resucitated. ROSC. Presently resting on vapotherm. (6) Pneumonia due to COVID-19 virus Current Visit: Yes Status: Acute Plan to address problem: Patient is on cefepime. Subjective Date of service: 06/16/20 Principal diagnosis: Ac hypoxemic resp failure; COVID-19; pneumonia; CHF; Pulm HTN; OHS; DM II Interval history: Patient sleeping at this time. Patient is On vapotherm ,FIO2 30% and O2 saturation running 97%. No acute respiratory distress at rest. Patient morbidly Obese. Patient posive for COVID Virus infection. Patient afebrile. No leukocytosis. Patient is on Cefepime, I/V heparin and prevacid. Chest xray done 06/13/20 reported Persistent increased bronchovascular markings Objective Vital Signs - 12hr 06/15/20 06/16/20 06/16/20 23:49 00:00 00:30 Temperature Pulse Rate 80 79 85 Pulse Rate [ 84 From Monitor] Respiratory 20 20 16 Rate Blood Pressure 142/63 142/63 O2 Sat by Pulse 98 99 100 Oximetry 06/16/20 06/16/20 06/16/20 01:00 01:30 02:00 Temperature Pulse Rate 74 76 74 Pulse Rate [ From Monitor] Respiratory 15 17 18 Rate Blood Pressure 154/61 154/61 161/64 O2 Sat by Pulse 100 100 100 Oximetry 06/16/20 06/16/20 06/16/20 02:30 03:00 03:30 Temperature Pulse Rate 74 72 73 Pulse Rate [ From Monitor] Respiratory 15 14 14 Rate Blood Pressure 161/64 165/63 165/63 O2 Sat by Pulse 100 100 100 Oximetry 06/16/20 06/16/20 06/16/20 04:00 04:30 05:00 Temperature Pulse Rate 70 81 80 Pulse Rate [ 84 From Monitor] Respiratory 15 19 16 Rate Blood Pressure 159/62 159/62 175/73 O2 Sat by Pulse 100 100 100 Oximetry 06/16/20 06/16/20 06/16/20 05:30 06:00 06:30 Temperature Pulse Rate 82 73 76 Pulse Rate [ From Monitor] Respiratory 18 16 16 Rate Blood Pressure 175/73 169/74 169/74 O2 Sat by Pulse 100 100 100 Oximetry 06/16/20 06/16/20 06/16/20 06:55 06:56 07:00 Temperature Pulse Rate 81 Pulse Rate [ From Monitor] Respiratory 16 Rate Blood Pressure 169/74 169/74 179/77 O2 Sat by Pulse 100 Oximetry 06/16/20 06/16/20 06/16/20 07:30 08:00 08:30 Temperature 98.4 F Pulse Rate 76 70 72 Pulse Rate [ 71 From Monitor] Respiratory 14 15 18 Rate Blood Pressure 179/77 146/61 146/61 O2 Sat by Pulse 100 100 100 Oximetry 06/16/20 06/16/20 06/16/20 09:00 09:06 09:30 Temperature Pulse Rate 70 71 Pulse Rate [ From Monitor] Respiratory 13 19 Rate Blood Pressure 153/71 153/71 O2 Sat by Pulse 100 99 99 Oximetry 06/16/20 06/16/20 06/16/20 10:00 10:13 10:30 Temperature Pulse Rate 71 71 81 Pulse Rate [ From Monitor] Respiratory 19 17 Rate Blood Pressure 149/64 153/73 149/64 O2 Sat by Pulse 99 99 Oximetry 06/16/20 11:00 Temperature Pulse Rate 76 Pulse Rate [ From Monitor] Respiratory 21 Rate Blood Pressure 164/71 O2 Sat by Pulse 98 Oximetry Constitutional: no acute distress, other (elderly looking obese female on HFOT) Eyes: non-icteric ENT: other Neck: supple, no lymphadenopathy, no JVD, other (large neck circumference) Effort: normal Ascultation: Bilateral: diminished breath sounds, rhonchi Percussion: Bilateral: not dull Cardiovascular: regular rate and rhythm, other (S1,S2) Gastrointestinal: normoactive bowel sounds, soft, non-tender, non-distended Integumentary: normal Extremities: no cyanosis, no edema, pink and warm, pulses normal, no ischemia or petechiae Neurologic: normal mental status, non-focal exam (grossly), pupils equal and round, motor strength normal and Psychiatric: mood appropriate, affect normal CBC and BMP: 06/15/20 04:24 06/16/20 09:15 ABG, PT/INR, D-dimer: ABG ABG pH 7.409 pH Units (7.350-7.450) 06/12/20 09:20 POC ABG pCO2 37.4 mmHg (32.0-48.0) 06/11/20 11:11 ABG pCO2 42.0 mm Hg 06/12/20 09:20 POC ABG pO2 101.9 mmHg (83-108) 06/11/20 11:11 ABG pO2 91.1 mm Hg (80.0-90.0) H 06/12/20 09:20 ABG O2 Saturation 97.0 % (95.0-99.0) 06/12/20 09:20 PT/INR, D-dimer PT 14.2 Sec. (12.2-14.9) 05/29/20 15:10 INR 1.08 (0.87-1.13) 05/29/20 15:10 D-Dimer 414.52 ng/mlDDU (0-234) H 06/04/20 04:19 Abnormal lab findings: Abnormal Labs 05/28/20 05/28/20 05/28/20 13:29 13:47 13:47 WBC RBC Hgb Hct RDW 15.3 H Lymph % (Auto) Lynn % (Auto) Eos % (Auto) Lymph # Lynn # Seg Neutrophils % Seg Neuts % (Manual) Lymphocytes % (Manual) Seg Neutrophils # Seg Neutrophils # Man Lymphocytes # (Manual) Monocytes # (Manual) D-Dimer Heparin Anti-Xa Level ABG pH ABG pO2 ABG HCO3 ABG O2 Saturation ABG Base Excess ABG Hemoglobin VBG pH Oxyhemoglobin Sodium Potassium 6.6 H* Chloride 109.2 H Carbon Dioxide 17 L BUN 29 H Creatinine 1.3 H Glucose 265 H POC Glucose 248 H Lactic Acid Calcium 8.1 L AST 63 H Alkaline Phosphatase Lactate Dehydrogenase Total Creatine Kinase 301 H CK-MB (CK-2) 4.3 H C-Reactive Protein Total Protein 5.4 L Albumin 2.6 L Urine WBC (Auto) Urine Creatinine Urine Total Protein Coronavirus (PCR) 05/28/20 05/28/20 05/28/20 13:47 13:47 14:46 WBC RBC Hgb Hct RDW Lymph % (Auto) Lynn % (Auto) Eos % (Auto) Lymph # [place] # Seg Neutrophils % Seg Neuts % (Manual) Lymphocytes % (Manual) Seg Neutrophils # Seg Neutrophils # Man Lymphocytes # (Manual) Monocytes # (Manual) D-Dimer Heparin Anti-Xa Level ABG pH ABG pO2 ABG HCO3 ABG O2 Saturation ABG Base Excess ABG Hemoglobin VBG pH 7.152 L* Oxyhemoglobin Sodium Potassium 7.2 H* Chloride Carbon Dioxide BUN Creatinine Glucose POC Glucose Lactic Acid 3.40 H* Calcium AST Alkaline Phosphatase Lactate Dehydrogenase Total Creatine Kinase CK-MB (CK-2) C-Reactive Protein Total Protein Albumin Urine WBC (Auto) Urine Creatinine Urine Total Protein Coronavirus (PCR) 05/28/20 05/28/20 05/28/20 15:33 15:33 15:51 WBC RBC Hgb Hct RDW Lymph % (Auto) Lynn % (Auto) Eos % (Auto) Lymph # [place] # Seg Neutrophils % Seg Neuts % (Manual) Lymphocytes % (Manual) Seg Neutrophils # Seg Neutrophils # Man Lymphocytes # (Manual) Monocytes # (Manual) D-Dimer 8780.43 H Heparin Anti-Xa Level ABG pH 7.284 L ABG pO2 273.0 H ABG HCO3 ABG O2 Saturation 99.4 H ABG Base Excess -6.1 L ABG Hemoglobin 17.2 H VBG pH Oxyhemoglobin Sodium Potassium Chloride Carbon Dioxide BUN Creatinine Glucose 152 H POC Glucose Lactic Acid Calcium AST Alkaline Phosphatase Lactate Dehydrogenase 365 H Total Creatine Kinase CK-MB (CK-2) C-Reactive Protein Total Protein Albumin Urine WBC (Auto) Urine Creatinine Urine Total Protein Coronavirus (PCR) 05/28/20 05/28/20 05/28/20 16:30 20:41 23:20 WBC RBC Hgb Hct RDW Lymph % (Auto) Lynn % (Auto) Eos % (Auto) Lymph # [place] # Seg Neutrophils % Seg Neuts % (Manual) Lymphocytes % (Manual) Seg Neutrophils # Seg Neutrophils # Man Lymphocytes # (Manual) Monocytes # (Manual) D-Dimer Heparin Anti-Xa Level ABG pH ABG pO2 ABG HCO3 ABG O2 Saturation ABG Base Excess ABG Hemoglobin VBG pH Oxyhemoglobin Sodium Potassium Chloride Carbon Dioxide BUN Creatinine Glucose POC Glucose 225 H 224 H Lactic Acid Calcium AST Alkaline Phosphatase Lactate Dehydrogenase Total Creatine Kinase CK-MB (CK-2) C-Reactive Protein Total Protein Albumin Urine WBC (Auto) 17.0 H Urine Creatinine Urine Total Protein Coronavirus (PCR) 05/28/20 05/29/20 05/29/20 Unknown 04:35 04:43 WBC RBC 3.48 L Hgb 9.8 L Hct 29.4 L RDW 16.0 H Lymph % (Auto) 7.4 L Lynn % (Auto) Eos % (Auto) Lymph # 0.7 L [place] # Seg Neutrophils % 89.1 H Seg Neuts % (Manual) Lymphocytes % (Manual) Seg Neutrophils # 8.1 H Seg Neutrophils # Man Lymphocytes # (Manual) Monocytes # (Manual) D-Dimer Heparin Anti-Xa Level ABG pH ABG pO2 ABG HCO3 19.3 L ABG O2 Saturation ABG Base Excess -4.5 L ABG Hemoglobin 9.7 L VBG pH Oxyhemoglobin Sodium Potassium Chloride Carbon Dioxide BUN Creatinine Glucose POC Glucose Lactic Acid Calcium AST Alkaline Phosphatase Lactate Dehydrogenase Total Creatine Kinase CK-MB (CK-2) C-Reactive Protein Total Protein Albumin Urine WBC (Auto) Urine Creatinine Urine Total Protein Coronavirus (PCR) Positive A 05/29/20 05/29/20 05/29/20 04:43 15:10 17:17 WBC RBC Hgb 9.3 L Hct 28.7 L RDW Lymph % (Auto) Lynn % (Auto) Eos % (Auto) Lymph # Lynn # Seg Neutrophils % Seg Neuts % (Manual) Lymphocytes % (Manual) Seg Neutrophils # Seg Neutrophils # Man Lymphocytes # (Manual) Monocytes # (Manual) D-Dimer Heparin Anti-Xa Level ABG pH ABG pO2 ABG HCO3 ABG O2 Saturation ABG Base Excess ABG Hemoglobin VBG pH Oxyhemoglobin Sodium Potassium Chloride 110.2 H Carbon Dioxide 18 L BUN 32 H Creatinine 1.4 H Glucose 180 H POC Glucose 147 H Lactic Acid Calcium AST Alkaline Phosphatase Lactate Dehydrogenase Total Creatine Kinase CK-MB (CK-2) C-Reactive Protein Total Protein Albumin Urine WBC (Auto) Urine Creatinine Urine Total Protein Coronavirus (PCR) 05/30/20 05/30/20 05/30/20 00:08 00:12 04:15 WBC RBC Hgb Hct RDW Lymph % (Auto) Lynn % (Auto) Eos % (Auto) Lymph # [place] # Seg Neutrophils % Seg Neuts % (Manual) Lymphocytes % (Manual) Seg Neutrophils # Seg Neutrophils # Man Lymphocytes # (Manual) Monocytes # (Manual) D-Dimer Heparin Anti-Xa Level 0.71 H ABG pH 7.460 H ABG pO2 106.0 H ABG HCO3 18.9 L ABG O2 Saturation ABG Base Excess -4.4 L ABG Hemoglobin 6.8 L VBG pH Oxyhemoglobin Sodium Potassium Chloride Carbon Dioxide BUN Creatinine Glucose POC Glucose 195 H Lactic Acid Calcium AST Alkaline Phosphatase Lactate Dehydrogenase Total Creatine Kinase CK-MB (CK-2) C-Reactive Protein Total Protein Albumin Urine WBC (Auto) Urine Creatinine Urine Total Protein Coronavirus (PCR) 05/30/20 05/30/20 05/30/20 06:07 08:37 12:33 WBC RBC Hgb Hct RDW Lymph % (Auto) Lynn % (Auto) Eos % (Auto) Lymph # [place] # Seg Neutrophils % Seg Neuts % (Manual) Lymphocytes % (Manual) Seg Neutrophils # Seg Neutrophils # Man Lymphocytes # (Manual) Monocytes # (Manual) D-Dimer Heparin Anti-Xa Level 0.85 H ABG pH ABG pO2 ABG HCO3 ABG O2 Saturation ABG Base Excess ABG Hemoglobin VBG pH Oxyhemoglobin Sodium Potassium Chloride Carbon Dioxide BUN Creatinine Glucose POC Glucose 182 H 187 H Lactic Acid Calcium AST Alkaline Phosphatase Lactate Dehydrogenase Total Creatine Kinase CK-MB (CK-2) C-Reactive Protein Total Protein Albumin Urine WBC (Auto) Urine Creatinine Urine Total Protein Coronavirus (PCR) 05/30/20 05/30/20 05/30/20 15:58 17:57 23:36 WBC RBC Hgb Hct RDW Lymph % (Auto) Lynn % (Auto) Eos % (Auto) Lymph # [place] # Seg Neutrophils % Seg Neuts % (Manual) Lymphocytes % (Manual) Seg Neutrophils # Seg Neutrophils # Man Lymphocytes # (Manual) Monocytes # (Manual) D-Dimer Heparin Anti-Xa Level 1.03 H ABG pH ABG pO2 ABG HCO3 ABG O2 Saturation ABG Base Excess ABG Hemoglobin VBG pH Oxyhemoglobin Sodium Potassium Chloride Carbon Dioxide BUN Creatinine Glucose POC Glucose 208 H 185 H Lactic Acid Calcium AST Alkaline Phosphatase Lactate Dehydrogenase Total Creatine Kinase CK-MB (CK-2) C-Reactive Protein Total Protein Albumin Urine WBC (Auto) Urine Creatinine Urine Total Protein Coronavirus (PCR) 05/31/20 05/31/20 05/31/20 02:16 03:55 06:16 WBC RBC Hgb 9.2 L Hct 27.5 L RDW Lymph % (Auto) Lynn % (Auto) Eos % (Auto) Lymph # [place] # Seg Neutrophils % Seg Neuts % (Manual) Lymphocytes % (Manual) Seg Neutrophils # Seg Neutrophils # Man Lymphocytes # (Manual) Monocytes # (Manual) D-Dimer Heparin Anti-Xa Level ABG pH ABG pO2 94.7 H ABG HCO3 18.6 L ABG O2 Saturation ABG Base Excess -5.5 L ABG Hemoglobin 7.9 L VBG pH Oxyhemoglobin Sodium Potassium Chloride Carbon Dioxide BUN Creatinine Glucose POC Glucose 160 H Lactic Acid Calcium AST Alkaline Phosphatase Lactate Dehydrogenase Total Creatine Kinase CK-MB (CK-2) C-Reactive Protein Total Protein Albumin Urine WBC (Auto) Urine Creatinine Urine Total Protein Coronavirus (PCR) 05/31/20 05/31/20 05/31/20 12:20 13:03 18:13 WBC RBC Hgb Hct RDW Lymph % (Auto) Lynn % (Auto) Eos % (Auto) Lymph # [place] # Seg Neutrophils % Seg Neuts % (Manual) Lymphocytes % (Manual) Seg Neutrophils # Seg Neutrophils # Man Lymphocytes # (Manual) Monocytes # (Manual) D-Dimer Heparin Anti-Xa Level ABG pH ABG pO2 ABG HCO3 ABG O2 Saturation ABG Base Excess ABG Hemoglobin VBG pH Oxyhemoglobin Sodium Potassium Chloride Carbon Dioxide 18 L BUN 48 H Creatinine 1.6 H Glucose 115 H POC Glucose 128 H 159 H Lactic Acid Calcium 8.3 L AST Alkaline Phosphatase Lactate Dehydrogenase Total Creatine Kinase CK-MB (CK-2) C-Reactive Protein Total Protein 5.4 L Albumin 2.4 L Urine WBC (Auto) Urine Creatinine Urine Total Protein Coronavirus (PCR) 05/31/20 06/01/20 06/01/20 23:51 04:00 05:48 WBC RBC Hgb Hct RDW Lymph % (Auto) Lynn % (Auto) Eos % (Auto) Lymph # [place] # Seg Neutrophils % Seg Neuts % (Manual) Lymphocytes % (Manual) Seg Neutrophils # Seg Neutrophils # Man Lymphocytes # (Manual) Monocytes # (Manual) D-Dimer Heparin Anti-Xa Level ABG pH ABG pO2 109.8 H ABG HCO3 18.8 L ABG O2 Saturation ABG Base Excess -5.9 L ABG Hemoglobin 7.8 L VBG pH Oxyhemoglobin Sodium Potassium Chloride Carbon Dioxide BUN Creatinine Glucose POC Glucose 171 H 133 H Lactic Acid Calcium AST Alkaline Phosphatase Lactate Dehydrogenase Total Creatine Kinase CK-MB (CK-2) C-Reactive Protein Total Protein Albumin Urine WBC (Auto) Urine Creatinine Urine Total Protein Coronavirus (PCR) 06/01/20 06/01/20 06/02/20 12:28 17:29 00:08 WBC RBC Hgb Hct RDW Lymph % (Auto) Lynn % (Auto) Eos % (Auto) Lymph # [place] # Seg Neutrophils % Seg Neuts % (Manual) Lymphocytes % (Manual) Seg Neutrophils # Seg Neutrophils # Man Lymphocytes # (Manual) Monocytes # (Manual) D-Dimer Heparin Anti-Xa Level ABG pH ABG pO2 ABG HCO3 ABG O2 Saturation ABG Base Excess ABG Hemoglobin VBG pH Oxyhemoglobin Sodium Potassium Chloride Carbon Dioxide BUN Creatinine Glucose POC Glucose 199 H 209 H 162 H Lactic Acid Calcium AST Alkaline Phosphatase Lactate Dehydrogenase Total Creatine Kinase CK-MB (CK-2) C-Reactive Protein Total Protein Albumin Urine WBC (Auto) Urine Creatinine Urine Total Protein Coronavirus (PCR) 06/02/20 06/02/20 06/02/20 04:20 04:20 04:44 WBC RBC Hgb 10.0 L Hct RDW Lymph % (Auto) Lynn % (Auto) Eos % (Auto) Lymph # Lynn # Seg Neutrophils % Seg Neuts % (Manual) Lymphocytes % (Manual) Seg Neutrophils # Seg Neutrophils # Man Lymphocytes # (Manual) Monocytes # (Manual) D-Dimer Heparin Anti-Xa Level 0.10 L ABG pH ABG pO2 150.6 H ABG HCO3 ABG O2 Saturation ABG Base Excess -4.1 L ABG Hemoglobin 11.8 L VBG pH Oxyhemoglobin Sodium Potassium Chloride Carbon Dioxide BUN Creatinine Glucose POC Glucose Lactic Acid Calcium AST Alkaline Phosphatase Lactate Dehydrogenase Total Creatine Kinase CK-MB (CK-2) C-Reactive Protein Total Protein Albumin Urine WBC (Auto) Urine Creatinine Urine Total Protein Coronavirus (PCR) 06/02/20 06/02/20 06/02/20 05:53 12:04 13:49 WBC RBC Hgb Hct RDW Lymph % (Auto) Lynn % (Auto) Eos % (Auto) Lymph # [place] # Seg Neutrophils % Seg Neuts % (Manual) Lymphocytes % (Manual) Seg Neutrophils # Seg Neutrophils # Man Lymphocytes # (Manual) Monocytes # (Manual) D-Dimer Heparin Anti-Xa Level 0.28 L ABG pH ABG pO2 ABG HCO3 ABG O2 Saturation ABG Base Excess ABG Hemoglobin VBG pH Oxyhemoglobin Sodium Potassium Chloride Carbon Dioxide BUN Creatinine Glucose POC Glucose 149 H 220 H Lactic Acid Calcium AST Alkaline Phosphatase Lactate Dehydrogenase Total Creatine Kinase CK-MB (CK-2) C-Reactive Protein Total Protein Albumin Urine WBC (Auto) Urine Creatinine Urine Total Protein Coronavirus (PCR) 06/02/20 06/02/20 06/03/20 13:49 18:31 00:42 WBC RBC Hgb Hct RDW Lymph % (Auto) Lynn % (Auto) Eos % (Auto) Lymph # [place] # Seg Neutrophils % Seg Neuts % (Manual) Lymphocytes % (Manual) Seg Neutrophils # Seg Neutrophils # Man Lymphocytes # (Manual) Monocytes # (Manual) D-Dimer 769.68 H Heparin Anti-Xa Level ABG pH ABG pO2 ABG HCO3 ABG O2 Saturation ABG Base Excess ABG Hemoglobin VBG pH Oxyhemoglobin Sodium Potassium Chloride Carbon Dioxide BUN Creatinine Glucose POC Glucose 225 H 212 H Lactic Acid Calcium AST Alkaline Phosphatase Lactate Dehydrogenase Total Creatine Kinase CK-MB (CK-2) C-Reactive Protein Total Protein Albumin Urine WBC (Auto) Urine Creatinine Urine Total Protein Coronavirus (PCR) 06/03/20 06/03/20 06/03/20 05:16 05:16 05:25 WBC 11.4 H RBC Hgb Hct RDW 16.4 H Lymph % (Auto) Lynn % (Auto) Eos % (Auto) Lymph # Lynn # Seg Neutrophils % Seg Neuts % (Manual) Lymphocytes % (Manual) Seg Neutrophils # Seg Neutrophils # Man Lymphocytes # (Manual) Monocytes # (Manual) D-Dimer Heparin Anti-Xa Level ABG pH ABG pO2 160.9 H ABG HCO3 19.4 L ABG O2 Saturation ABG Base Excess -4.9 L ABG Hemoglobin 7.0 L VBG pH Oxyhemoglobin Sodium Potassium Chloride Carbon Dioxide 18 L BUN 65 H Creatinine 2.0 H Glucose 175 H POC Glucose Lactic Acid Calcium 8.0 L AST Alkaline Phosphatase Lactate Dehydrogenase Total Creatine Kinase CK-MB (CK-2) C-Reactive Protein Total Protein 5.5 L Albumin 2.2 L Urine WBC (Auto) Urine Creatinine Urine Total Protein Coronavirus (PCR) 06/03/20 06/03/20 06/03/20 06:07 11:58 18:24 WBC RBC Hgb Hct RDW Lymph % (Auto) Lynn % (Auto) Eos % (Auto) Lymph # [place] # Seg Neutrophils % Seg Neuts % (Manual) Lymphocytes % (Manual) Seg Neutrophils # Seg Neutrophils # Man Lymphocytes # (Manual) Monocytes # (Manual) D-Dimer Heparin Anti-Xa Level ABG pH ABG pO2 ABG HCO3 ABG O2 Saturation ABG Base Excess ABG Hemoglobin VBG pH Oxyhemoglobin Sodium Potassium Chloride Carbon Dioxide BUN Creatinine Glucose POC Glucose 177 H 163 H 211 H Lactic Acid Calcium AST Alkaline Phosphatase Lactate Dehydrogenase Total Creatine Kinase CK-MB (CK-2) C-Reactive Protein Total Protein Albumin Urine WBC (Auto) Urine Creatinine Urine Total Protein Coronavirus (PCR) 06/03/20 06/03/20 06/04/20 21:50 Unknown 00:26 WBC RBC Hgb Hct RDW Lymph % (Auto) Lynn % (Auto) Eos % (Auto) Lymph # [place] # Seg Neutrophils % Seg Neuts % (Manual) Lymphocytes % (Manual) Seg Neutrophils # Seg Neutrophils # Man Lymphocytes # (Manual) Monocytes # (Manual) D-Dimer Heparin Anti-Xa Level ABG pH ABG pO2 ABG HCO3 ABG O2 Saturation ABG Base Excess ABG Hemoglobin VBG pH Oxyhemoglobin Sodium 135 L Potassium Chloride Carbon Dioxide 18 L BUN Creatinine Glucose POC Glucose 241 H Lactic Acid Calcium AST Alkaline Phosphatase Lactate Dehydrogenase Total Creatine Kinase CK-MB (CK-2) C-Reactive Protein Total Protein Albumin Urine WBC (Auto) 11.0 H Urine Creatinine Urine Total Protein Coronavirus (PCR) 08/27/20 08/27/20 08/27/20 03:35 04:19 04:19 WBC RBC 3.15 L Hgb 8.9 L Hct 26.8 L D RDW 15.9 H Lymph % (Auto) 6.0 L Lynn % (Auto) Eos % (Auto) Lymph # 0.6 L [place] # Seg Neutrophils % 86.6 H Seg Neuts % (Manual) Lymphocytes % (Manual) Seg Neutrophils # 9.1 H Seg Neutrophils # Man Lymphocytes # (Manual) Monocytes # (Manual) D-Dimer Heparin Anti-Xa Level ABG pH 7.331 L ABG pO2 ABG HCO3 ABG O2 Saturation ABG Base Excess -4.7 L ABG Hemoglobin 11.0 L VBG pH Oxyhemoglobin 93.9 L Sodium 136 L Potassium Chloride Carbon Dioxide 20 L BUN 73 H Creatinine 2.0 H Glucose 192 H POC Glucose Lactic Acid Calcium 8.0 L AST Alkaline Phosphatase Lactate Dehydrogenase 271 H Total Creatine Kinase CK-MB (CK-2) C-Reactive Protein 2.20 H Total Protein 5.0 L Albumin 2.0 L Urine WBC (Auto) Urine Creatinine Urine Total Protein Coronavirus (PCR) 06/04/20 06/04/20 06/04/20 04:19 05:51 11:48 WBC RBC Hgb Hct RDW Lymph % (Auto) Lynn % (Auto) Eos % (Auto) Lymph # [place] # Seg Neutrophils % Seg Neuts % (Manual) Lymphocytes % (Manual) Seg Neutrophils # Seg Neutrophils # Man Lymphocytes # (Manual) Monocytes # (Manual) D-Dimer 414.52 H Heparin Anti-Xa Level ABG pH ABG pO2 ABG HCO3 ABG O2 Saturation ABG Base Excess ABG Hemoglobin VBG pH Oxyhemoglobin Sodium Potassium Chloride Carbon Dioxide BUN Creatinine Glucose POC Glucose 179 H 213 H Lactic Acid Calcium AST Alkaline Phosphatase Lactate Dehydrogenase Total Creatine Kinase CK-MB (CK-2) C-Reactive Protein Total Protein Albumin Urine WBC (Auto) Urine Creatinine Urine Total Protein Coronavirus (PCR) 06/04/20 06/05/20 06/05/20 18:25 00:16 05:00 WBC RBC Hgb Hct RDW Lymph % (Auto) Lynn % (Auto) Eos % (Auto) Lymph # Lynn # Seg Neutrophils % Seg Neuts % (Manual) Lymphocytes % (Manual) Seg Neutrophils # Seg Neutrophils # Man Lymphocytes # (Manual) Monocytes # (Manual) D-Dimer Heparin Anti-Xa Level ABG pH 7.286 L ABG pO2 96.2 H ABG HCO3 ABG O2 Saturation ABG Base Excess -6.3 L ABG Hemoglobin 8.8 L VBG pH Oxyhemoglobin 94.8 L Sodium Potassium Chloride Carbon Dioxide BUN Creatinine Glucose POC Glucose 238 H 183 H Lactic Acid Calcium AST Alkaline Phosphatase Lactate Dehydrogenase Total Creatine Kinase CK-MB (CK-2) C-Reactive Protein Total Protein Albumin Urine WBC (Auto) Urine Creatinine Urine Total Protein Coronavirus (PCR) 06/05/20 06/05/20 06/05/20 05:39 07:25 07:25 WBC RBC 2.97 L Hgb 8.7 L Hct 25.7 L RDW 16.0 H Lymph % (Auto) 8.8 L Lynn % (Auto) 13.3 H Eos % (Auto) Lymph # 0.8 L Lynn # 1.3 H Seg Neutrophils % 77.3 H Seg Neuts % (Manual) Lymphocytes % (Manual) Seg Neutrophils # Seg Neutrophils # Man Lymphocytes # (Manual) Monocytes # (Manual) D-Dimer Heparin Anti-Xa Level ABG pH ABG pO2 ABG HCO3 ABG O2 Saturation ABG Base Excess ABG Hemoglobin VBG pH Oxyhemoglobin Sodium 133 L Potassium Chloride Carbon Dioxide 17 L BUN 89 H Creatinine 2.8 H Glucose 176 H POC Glucose 149 H Lactic Acid Calcium 7.7 L AST Alkaline Phosphatase Lactate Dehydrogenase Total Creatine Kinase CK-MB (CK-2) C-Reactive Protein Total Protein 4.2 L Albumin 1.9 L Urine WBC (Auto) Urine Creatinine Urine Total Protein Coronavirus (PCR) 06/05/20 06/05/20 06/05/20 07:25 12:05 15:41 WBC RBC Hgb Hct RDW Lymph % (Auto) Lynn % (Auto) Eos % (Auto) Lymph # [place] # Seg Neutrophils % Seg Neuts % (Manual) Lymphocytes % (Manual) Seg Neutrophils # Seg Neutrophils # Man Lymphocytes # (Manual) Monocytes # (Manual) D-Dimer Heparin Anti-Xa Level 0.76 H 0.81 H ABG pH ABG pO2 ABG HCO3 ABG O2 Saturation ABG Base Excess ABG Hemoglobin VBG pH Oxyhemoglobin Sodium Potassium Chloride Carbon Dioxide BUN Creatinine Glucose POC Glucose 198 H Lactic Acid Calcium AST Alkaline Phosphatase Lactate Dehydrogenase Total Creatine Kinase CK-MB (CK-2) C-Reactive Protein Total Protein Albumin Urine WBC (Auto) Urine Creatinine Urine Total Protein Coronavirus (PCR) 06/05/20 06/05/20 06/06/20 18:08 23:25 04:00 WBC RBC Hgb Hct RDW Lymph % (Auto) Lynn % (Auto) Eos % (Auto) Lymph # [place] # Seg Neutrophils % Seg Neuts % (Manual) Lymphocytes % (Manual) Seg Neutrophils # Seg Neutrophils # Man Lymphocytes # (Manual) Monocytes # (Manual) D-Dimer Heparin Anti-Xa Level ABG pH ABG pO2 ABG HCO3 ABG O2 Saturation ABG Base Excess ABG Hemoglobin VBG pH Oxyhemoglobin Sodium Potassium Chloride Carbon Dioxide BUN Creatinine Glucose POC Glucose 223 H 169 H Lactic Acid Calcium AST Alkaline Phosphatase Lactate Dehydrogenase Total Creatine Kinase CK-MB (CK-2) C-Reactive Protein Total Protein Albumin Urine WBC (Auto) 15.0 H Urine Creatinine Urine Total Protein Coronavirus (PCR) 06/06/20 06/06/20 06/06/20 04:00 05:33 05:38 WBC RBC 2.97 L Hgb 8.7 L Hct 26.8 L RDW 16.8 H Lymph % (Auto) Lynn % (Auto) Eos % (Auto) Lymph # [place] # Seg Neutrophils % Seg Neuts % (Manual) Lymphocytes % (Manual) Seg Neutrophils # Seg Neutrophils # Man Lymphocytes # (Manual) Monocytes # (Manual) D-Dimer Heparin Anti-Xa Level ABG pH ABG pO2 ABG HCO3 ABG O2 Saturation ABG Base Excess ABG Hemoglobin VBG pH Oxyhemoglobin Sodium Potassium Chloride Carbon Dioxide BUN Creatinine Glucose POC Glucose 186 H Lactic Acid Calcium AST Alkaline Phosphatase Lactate Dehydrogenase Total Creatine Kinase CK-MB (CK-2) C-Reactive Protein Total Protein Albumin Urine WBC (Auto) Urine Creatinine 82.2 H Urine Total Protein 196 H Coronavirus (PCR) 06/06/20 06/06/20 06/06/20 05:38 12:25 17:03 WBC RBC Hgb Hct RDW Lymph % (Auto) Lynn % (Auto) Eos % (Auto) Lymph # Lynn # Seg Neutrophils % Seg Neuts % (Manual) Lymphocytes % (Manual) Seg Neutrophils # Seg Neutrophils # Man Lymphocytes # (Manual) Monocytes # (Manual) D-Dimer Heparin Anti-Xa Level ABG pH ABG pO2 ABG HCO3 ABG O2 Saturation ABG Base Excess ABG Hemoglobin VBG pH Oxyhemoglobin Sodium 134 L Potassium 5.2 H Chloride Carbon Dioxide 18 L BUN 97 H Creatinine 2.5 H Glucose 193 H POC Glucose 239 H 252 H Lactic Acid Calcium 7.5 L AST Alkaline Phosphatase Lactate Dehydrogenase Total Creatine Kinase CK-MB (CK-2) C-Reactive Protein Total Protein 4.1 L Albumin 1.9 L Urine WBC (Auto) Urine Creatinine Urine Total Protein Coronavirus (PCR) 06/07/20 06/07/20 06/07/20 00:16 01:49 04:00 WBC RBC 2.91 L Hgb 8.4 L Hct 25.0 L RDW 16.1 H Lymph % (Auto) 5.7 L Lynn % (Auto) 10.5 H Eos % (Auto) Lymph # 0.6 L Lynn # 1.1 H Seg Neutrophils % 83.6 H Seg Neuts % (Manual) Lymphocytes % (Manual) Seg Neutrophils # 9.1 H Seg Neutrophils # Man Lymphocytes # (Manual) Monocytes # (Manual) D-Dimer Heparin Anti-Xa Level 0.26 L ABG pH ABG pO2 ABG HCO3 ABG O2 Saturation ABG Base Excess ABG Hemoglobin VBG pH Oxyhemoglobin Sodium Potassium Chloride Carbon Dioxide BUN Creatinine Glucose POC Glucose 173 H Lactic Acid Calcium AST Alkaline Phosphatase Lactate Dehydrogenase Total Creatine Kinase CK-MB (CK-2) C-Reactive Protein Total Protein Albumin Urine WBC (Auto) Urine Creatinine Urine Total Protein Coronavirus (PCR) 06/07/20 06/07/20 06/07/20 04:00 04:54 05:51 WBC RBC Hgb Hct RDW Lymph % (Auto) Lynn % (Auto) Eos % (Auto) Lymph # Lynn # Seg Neutrophils % Seg Neuts % (Manual) Lymphocytes % (Manual) Seg Neutrophils # Seg Neutrophils # Man Lymphocytes # (Manual) Monocytes # (Manual) D-Dimer Heparin Anti-Xa Level ABG pH 7.317 L ABG pO2 71.4 L ABG HCO3 ABG O2 Saturation 94.3 L ABG Base Excess -4.8 L ABG Hemoglobin 7.1 L VBG pH Oxyhemoglobin 92.2 L Sodium 133 L Potassium Chloride Carbon Dioxide 18 L BUN 100 H Creatinine 2.5 H Glucose 158 H POC Glucose 168 H Lactic Acid Calcium 7.6 L AST Alkaline Phosphatase Lactate Dehydrogenase Total Creatine Kinase CK-MB (CK-2) C-Reactive Protein Total Protein 4.7 L Albumin 2.0 L Urine WBC (Auto) Urine Creatinine Urine Total Protein Coronavirus (PCR) 06/07/20 06/07/20 06/07/20 12:03 17:17 20:10 WBC RBC Hgb Hct RDW Lymph % (Auto) Lynn % (Auto) Eos % (Auto) Lymph # [place] # Seg Neutrophils % Seg Neuts % (Manual) Lymphocytes % (Manual) Seg Neutrophils # Seg Neutrophils # Man Lymphocytes # (Manual) Monocytes # (Manual) D-Dimer Heparin Anti-Xa Level 0.17 L ABG pH ABG pO2 ABG HCO3 ABG O2 Saturation ABG Base Excess ABG Hemoglobin VBG pH Oxyhemoglobin Sodium Potassium Chloride Carbon Dioxide BUN Creatinine Glucose POC Glucose 276 H 281 H Lactic Acid Calcium AST Alkaline Phosphatase Lactate Dehydrogenase Total Creatine Kinase CK-MB (CK-2) C-Reactive Protein Total Protein Albumin Urine WBC (Auto) Urine Creatinine Urine Total Protein Coronavirus (PCR) 06/08/20 06/08/20 06/08/20 00:02 04:47 04:47 WBC 16.4 H RBC 3.07 L Hgb 8.6 L Hct 26.5 L RDW 16.3 H Lymph % (Auto) Lynn % (Auto) Eos % (Auto) Lymph # Lynn # Seg Neutrophils % Seg Neuts % (Manual) 90.0 H Lymphocytes % (Manual) 3.0 L Seg Neutrophils # Seg Neutrophils # Man 14.8 H Lymphocytes # (Manual) 0.5 L Monocytes # (Manual) 1.1 H D-Dimer Heparin Anti-Xa Level ABG pH ABG pO2 ABG HCO3 ABG O2 Saturation ABG Base Excess ABG Hemoglobin VBG pH Oxyhemoglobin Sodium 129 L Potassium Chloride 95.6 L Carbon Dioxide 17 L BUN 106 H Creatinine 2.5 H Glucose 213 H POC Glucose 242 H Lactic Acid Calcium 7.6 L AST Alkaline Phosphatase Lactate Dehydrogenase Total Creatine Kinase CK-MB (CK-2) C-Reactive Protein Total Protein 5.0 L Albumin 2.1 L Urine WBC (Auto) Urine Creatinine Urine Total Protein Coronavirus (PCR) 06/08/20 06/08/20 06/08/20 05:40 11:55 17:54 WBC RBC Hgb Hct RDW Lymph % (Auto) Lynn % (Auto) Eos % (Auto) Lymph # [place] # Seg Neutrophils % Seg Neuts % (Manual) Lymphocytes % (Manual) Seg Neutrophils # Seg Neutrophils # Man Lymphocytes # (Manual) Monocytes # (Manual) D-Dimer Heparin Anti-Xa Level ABG pH ABG pO2 ABG HCO3 ABG O2 Saturation ABG Base Excess ABG Hemoglobin VBG pH Oxyhemoglobin Sodium Potassium Chloride Carbon Dioxide BUN Creatinine Glucose POC Glucose 221 H 218 H 163 H Lactic Acid Calcium AST Alkaline Phosphatase Lactate Dehydrogenase Total Creatine Kinase CK-MB (CK-2) C-Reactive Protein Total Protein Albumin Urine WBC (Auto) Urine Creatinine Urine Total Protein Coronavirus (PCR) 06/08/20 06/09/20 06/09/20 22:01 00:09 05:16 WBC 19.0 H RBC 3.35 L Hgb 9.2 L Hct 28.5 L RDW 16.3 H Lymph % (Auto) Lynn % (Auto) Eos % (Auto) Lymph # [place] # Seg Neutrophils % Seg Neuts % (Manual) 85.0 H Lymphocytes % (Manual) 7.0 L Seg Neutrophils # Seg Neutrophils # Man 16.2 H Lymphocytes # (Manual) Monocytes # (Manual) 1.3 H D-Dimer Heparin Anti-Xa Level ABG pH ABG pO2 ABG HCO3 ABG O2 Saturation ABG Base Excess ABG Hemoglobin VBG pH Oxyhemoglobin Sodium Potassium Chloride Carbon Dioxide BUN Creatinine Glucose POC Glucose 182 H 150 H Lactic Acid Calcium AST Alkaline Phosphatase Lactate Dehydrogenase Total Creatine Kinase CK-MB (CK-2) C-Reactive Protein Total Protein Albumin Urine WBC (Auto) Urine Creatinine Urine Total Protein Coronavirus (PCR) 06/09/20 06/09/20 06/09/20 05:16 05:24 11:29 WBC RBC Hgb Hct RDW Lymph % (Auto) Lynn % (Auto) Eos % (Auto) Lymph # Lynn # Seg Neutrophils % Seg Neuts % (Manual) Lymphocytes % (Manual) Seg Neutrophils # Seg Neutrophils # Man Lymphocytes # (Manual) Monocytes # (Manual) D-Dimer Heparin Anti-Xa Level ABG pH ABG pO2 ABG HCO3 ABG O2 Saturation ABG Base Excess ABG Hemoglobin VBG pH Oxyhemoglobin Sodium 133 L Potassium Chloride Carbon Dioxide 19 L BUN 109 H Creatinine 2.1 H Glucose 133 H POC Glucose 128 H 119 H Lactic Acid Calcium 7.7 L AST Alkaline Phosphatase < 5 L Lactate Dehydrogenase Total Creatine Kinase CK-MB (CK-2) C-Reactive Protein Total Protein 4.6 L Albumin < 0.2 L Urine WBC (Auto) Urine Creatinine Urine Total Protein Coronavirus (PCR) 06/09/20 06/10/20 06/10/20 17:32 00:00 05:49 WBC RBC Hgb Hct RDW Lymph % (Auto) Lynn % (Auto) Eos % (Auto) Lymph # [place] # Seg Neutrophils % Seg Neuts % (Manual) Lymphocytes % (Manual) Seg Neutrophils # Seg Neutrophils # Man Lymphocytes # (Manual) Monocytes # (Manual) D-Dimer Heparin Anti-Xa Level 0.19 L ABG pH ABG pO2 ABG HCO3 ABG O2 Saturation ABG Base Excess ABG Hemoglobin VBG pH Oxyhemoglobin Sodium Potassium Chloride Carbon Dioxide BUN Creatinine Glucose POC Glucose 106 H 117 H Lactic Acid Calcium AST Alkaline Phosphatase Lactate Dehydrogenase Total Creatine Kinase CK-MB (CK-2) C-Reactive Protein Total Protein Albumin Urine WBC (Auto) Urine Creatinine Urine Total Protein Coronavirus (PCR) 06/10/20 06/10/20 06/10/20 05:54 07:40 11:40 WBC RBC Hgb Hct RDW Lymph % (Auto) Lynn % (Auto) Eos % (Auto) Lymph # [place] # Seg Neutrophils % Seg Neuts % (Manual) Lymphocytes % (Manual) Seg Neutrophils # Seg Neutrophils # Man Lymphocytes # (Manual) Monocytes # (Manual) D-Dimer Heparin Anti-Xa Level ABG pH ABG pO2 ABG HCO3 ABG O2 Saturation ABG Base Excess ABG Hemoglobin VBG pH Oxyhemoglobin Sodium 146 H D Potassium Chloride Carbon Dioxide 20 L BUN 99 H Creatinine 1.9 H Glucose 121 H POC Glucose 127 H 138 H Lactic Acid Calcium 8.2 L AST Alkaline Phosphatase Lactate Dehydrogenase Total Creatine Kinase CK-MB (CK-2) C-Reactive Protein Total Protein Albumin Urine WBC (Auto) Urine Creatinine Urine Total Protein Coronavirus (PCR) 06/10/20 06/10/20 06/10/20 14:44 17:31 23:22 WBC RBC Hgb Hct RDW Lymph % (Auto) Lynn % (Auto) Eos % (Auto) Lymph # Lynn # Seg Neutrophils % Seg Neuts % (Manual) Lymphocytes % (Manual) Seg Neutrophils # Seg Neutrophils # Man Lymphocytes # (Manual) Monocytes # (Manual) D-Dimer Heparin Anti-Xa Level 0.17 L ABG pH ABG pO2 ABG HCO3 ABG O2 Saturation ABG Base Excess ABG Hemoglobin VBG pH Oxyhemoglobin Sodium Potassium Chloride Carbon Dioxide BUN Creatinine Glucose POC Glucose 128 H 114 H Lactic Acid Calcium AST Alkaline Phosphatase Lactate Dehydrogenase Total Creatine Kinase CK-MB (CK-2) C-Reactive Protein Total Protein Albumin Urine WBC (Auto) Urine Creatinine Urine Total Protein Coronavirus (PCR) 06/11/20 06/11/20 06/11/20 00:22 03:45 03:45 WBC 14.6 H RBC 2.77 L Hgb 7.9 L Hct 24.3 L RDW 16.8 H Lymph % (Auto) 6.6 L Lynn % (Auto) 8.5 H Eos % (Auto) Lymph # 1.0 L Lynn # 1.2 H Seg Neutrophils % 82.9 H Seg Neuts % (Manual) Lymphocytes % (Manual) Seg Neutrophils # 12.1 H Seg Neutrophils # Man Lymphocytes # (Manual) Monocytes # (Manual) D-Dimer Heparin Anti-Xa Level 0.24 L ABG pH ABG pO2 ABG HCO3 ABG O2 Saturation ABG Base Excess ABG Hemoglobin VBG pH Oxyhemoglobin Sodium Potassium Chloride Carbon Dioxide 20 L BUN 88 H Creatinine 1.5 H Glucose 111 H POC Glucose Lactic Acid Calcium 8.2 L AST Alkaline Phosphatase Lactate Dehydrogenase Total Creatine Kinase CK-MB (CK-2) C-Reactive Protein Total Protein Albumin Urine WBC (Auto) Urine Creatinine Urine Total Protein Coronavirus (PCR) 06/11/20 06/11/20 06/11/20 06:03 10:22 11:11 WBC RBC Hgb Hct RDW Lymph % (Auto) Lynn % (Auto) Eos % (Auto) Lymph # Lynn # Seg Neutrophils % Seg Neuts % (Manual) Lymphocytes % (Manual) Seg Neutrophils # Seg Neutrophils # Man Lymphocytes # (Manual) Monocytes # (Manual) D-Dimer Heparin Anti-Xa Level 0.26 L ABG pH ABG pO2 ABG HCO3 ABG O2 Saturation ABG Base Excess ABG Hemoglobin 9.6 L VBG pH Oxyhemoglobin Sodium Potassium Chloride Carbon Dioxide BUN Creatinine Glucose POC Glucose 114 H Lactic Acid Calcium AST Alkaline Phosphatase Lactate Dehydrogenase Total Creatine Kinase CK-MB (CK-2) C-Reactive Protein Total Protein Albumin Urine WBC (Auto) Urine Creatinine Urine Total Protein Coronavirus (PCR) 06/11/20 06/11/20 06/12/20 12:24 17:24 00:21 WBC RBC Hgb Hct RDW Lymph % (Auto) Lynn % (Auto) Eos % (Auto) Lymph # [place] # Seg Neutrophils % Seg Neuts % (Manual) Lymphocytes % (Manual) Seg Neutrophils # Seg Neutrophils # Man Lymphocytes # (Manual) Monocytes # (Manual) D-Dimer Heparin Anti-Xa Level ABG pH ABG pO2 ABG HCO3 ABG O2 Saturation ABG Base Excess ABG Hemoglobin VBG pH Oxyhemoglobin Sodium Potassium Chloride Carbon Dioxide BUN Creatinine Glucose POC Glucose 119 H 126 H 117 H Lactic Acid Calcium AST Alkaline Phosphatase Lactate Dehydrogenase Total Creatine Kinase CK-MB (CK-2) C-Reactive Protein Total Protein Albumin Urine WBC (Auto) Urine Creatinine Urine Total Protein Coronavirus (PCR) 06/12/20 06/12/20 06/12/20 02:46 02:46 05:46 WBC 13.2 H RBC 2.83 L Hgb 8.3 L Hct 24.3 L RDW 16.6 H Lymph % (Auto) 6.2 L Lynn % (Auto) 9.5 H Eos % (Auto) Lymph # 0.8 L Lynn # 1.3 H Seg Neutrophils % 81.9 H Seg Neuts % (Manual) Lymphocytes % (Manual) Seg Neutrophils # 10.9 H Seg Neutrophils # Man Lymphocytes # (Manual) Monocytes # (Manual) D-Dimer Heparin Anti-Xa Level ABG pH ABG pO2 ABG HCO3 ABG O2 Saturation ABG Base Excess ABG Hemoglobin VBG pH Oxyhemoglobin Sodium Potassium 3.5 L Chloride Carbon Dioxide BUN 77 H Creatinine 1.3 H Glucose POC Glucose 132 H Lactic Acid Calcium 8.3 L AST Alkaline Phosphatase Lactate Dehydrogenase Total Creatine Kinase CK-MB (CK-2) C-Reactive Protein Total Protein Albumin Urine WBC (Auto) Urine Creatinine Urine Total Protein Coronavirus (PCR) 06/12/20 06/12/20 06/12/20 09:20 12:16 17:48 WBC RBC Hgb Hct RDW Lymph % (Auto) Lynn % (Auto) Eos % (Auto) Lymph # [place] # Seg Neutrophils % Seg Neuts % (Manual) Lymphocytes % (Manual) Seg Neutrophils # Seg Neutrophils # Man Lymphocytes # (Manual) Monocytes # (Manual) D-Dimer Heparin Anti-Xa Level ABG pH ABG pO2 91.1 H ABG HCO3 ABG O2 Saturation ABG Base Excess ABG Hemoglobin VBG pH Oxyhemoglobin 94.8 L Sodium Potassium Chloride Carbon Dioxide BUN Creatinine Glucose POC Glucose 167 H 182 H Lactic Acid Calcium AST Alkaline Phosphatase Lactate Dehydrogenase Total Creatine Kinase CK-MB (CK-2) C-Reactive Protein Total Protein Albumin Urine WBC (Auto) Urine Creatinine Urine Total Protein Coronavirus (PCR) 06/13/20 06/13/20 06/13/20 00:08 05:37 09:09 WBC RBC Hgb Hct RDW Lymph % (Auto) Lynn % (Auto) Eos % (Auto) Lymph # [place] # Seg Neutrophils % Seg Neuts % (Manual) Lymphocytes % (Manual) Seg Neutrophils # Seg Neutrophils # Man Lymphocytes # (Manual) Monocytes # (Manual) D-Dimer Heparin Anti-Xa Level 0.86 H ABG pH ABG pO2 ABG HCO3 ABG O2 Saturation ABG Base Excess ABG Hemoglobin VBG pH Oxyhemoglobin Sodium Potassium Chloride Carbon Dioxide BUN Creatinine Glucose POC Glucose 142 H 119 H Lactic Acid Calcium AST Alkaline Phosphatase Lactate Dehydrogenase Total Creatine Kinase CK-MB (CK-2) C-Reactive Protein Total Protein Albumin Urine WBC (Auto) Urine Creatinine Urine Total Protein Coronavirus (PCR) 06/13/20 06/13/20 06/13/20 12:28 17:55 21:17 WBC RBC Hgb Hct RDW Lymph % (Auto) Lynn % (Auto) Eos % (Auto) Lymph # [place] # Seg Neutrophils % Seg Neuts % (Manual) Lymphocytes % (Manual) Seg Neutrophils # Seg Neutrophils # Man Lymphocytes # (Manual) Monocytes # (Manual) D-Dimer Heparin Anti-Xa Level ABG pH ABG pO2 ABG HCO3 ABG O2 Saturation ABG Base Excess ABG Hemoglobin VBG pH Oxyhemoglobin Sodium Potassium Chloride Carbon Dioxide BUN 61 H Creatinine Glucose 131 H POC Glucose 165 H 174 H Lactic Acid Calcium AST Alkaline Phosphatase Lactate Dehydrogenase Total Creatine Kinase CK-MB (CK-2) C-Reactive Protein Total Protein Albumin Urine WBC (Auto) Urine Creatinine Urine Total Protein Coronavirus (PCR) 06/13/20 06/13/20 06/14/20 21:17 23:50 05:34 WBC RBC Hgb Hct RDW Lymph % (Auto) Lynn % (Auto) Eos % (Auto) Lymph # [place] # Seg Neutrophils % Seg Neuts % (Manual) Lymphocytes % (Manual) Seg Neutrophils # Seg Neutrophils # Man Lymphocytes # (Manual) Monocytes # (Manual) D-Dimer Heparin Anti-Xa Level 0.72 H ABG pH ABG pO2 ABG HCO3 ABG O2 Saturation ABG Base Excess ABG Hemoglobin VBG pH Oxyhemoglobin Sodium 146 H Potassium Chloride 107.6 H Carbon Dioxide BUN 61 H Creatinine 1.3 H Glucose 135 H POC Glucose 146 H Lactic Acid Calcium AST Alkaline Phosphatase Lactate Dehydrogenase Total Creatine Kinase CK-MB (CK-2) C-Reactive Protein Total Protein Albumin Urine WBC (Auto) Urine Creatinine Urine Total Protein Coronavirus (PCR) 06/14/20 06/14/20 06/14/20 06:11 09:28 11:30 WBC RBC Hgb Hct RDW Lymph % (Auto) Lynn % (Auto) Eos % (Auto) Lymph # [place] # Seg Neutrophils % Seg Neuts % (Manual) Lymphocytes % (Manual) Seg Neutrophils # Seg Neutrophils # Man Lymphocytes # (Manual) Monocytes # (Manual) D-Dimer Heparin Anti-Xa Level 0.90 H ABG pH ABG pO2 ABG HCO3 ABG O2 Saturation ABG Base Excess ABG Hemoglobin VBG pH Oxyhemoglobin Sodium Potassium Chloride Carbon Dioxide BUN Creatinine Glucose POC Glucose 141 H 186 H Lactic Acid Calcium AST Alkaline Phosphatase Lactate Dehydrogenase Total Creatine Kinase CK-MB (CK-2) C-Reactive Protein Total Protein Albumin Urine WBC (Auto) Urine Creatinine Urine Total Protein Coronavirus (PCR) 06/14/20 06/14/20 06/14/20 16:07 18:16 23:51 WBC RBC Hgb Hct RDW Lymph % (Auto) Lynn % (Auto) Eos % (Auto) Lymph # [place] # Seg Neutrophils % Seg Neuts % (Manual) Lymphocytes % (Manual) Seg Neutrophils # Seg Neutrophils # Man Lymphocytes # (Manual) Monocytes # (Manual) D-Dimer Heparin Anti-Xa Level 0.82 H ABG pH ABG pO2 ABG HCO3 ABG O2 Saturation ABG Base Excess ABG Hemoglobin VBG pH Oxyhemoglobin Sodium Potassium Chloride Carbon Dioxide BUN Creatinine Glucose POC Glucose 106 H 154 H Lactic Acid Calcium AST Alkaline Phosphatase Lactate Dehydrogenase Total Creatine Kinase CK-MB (CK-2) C-Reactive Protein Total Protein Albumin Urine WBC (Auto) Urine Creatinine Urine Total Protein Coronavirus (PCR) 06/15/20 06/15/20 06/15/20 04:24 04:24 05:59 WBC RBC 2.75 L Hgb 7.9 L Hct 24.0 L RDW 16.4 H Lymph % (Auto) 12.9 L Lynn % (Auto) 8.7 H Eos % (Auto) 4.6 H Lymph # 1.1 L [place] # Seg Neutrophils % 73.2 H Seg Neuts % (Manual) Lymphocytes % (Manual) Seg Neutrophils # Seg Neutrophils # Man Lymphocytes # (Manual) Monocytes # (Manual) D-Dimer Heparin Anti-Xa Level ABG pH ABG pO2 ABG HCO3 ABG O2 Saturation ABG Base Excess ABG Hemoglobin VBG pH Oxyhemoglobin Sodium Potassium 3.4 L Chloride Carbon Dioxide BUN 55 H Creatinine 1.3 H Glucose 142 H POC Glucose 131 H Lactic Acid Calcium AST Alkaline Phosphatase Lactate Dehydrogenase Total Creatine Kinase CK-MB (CK-2) C-Reactive Protein Total Protein Albumin Urine WBC (Auto) Urine Creatinine Urine Total Protein Coronavirus (PCR) 06/15/20 06/15/20 06/16/20 12:33 17:07 00:22 WBC RBC Hgb Hct RDW Lymph % (Auto) Lynn % (Auto) Eos % (Auto) Lymph # [place] # Seg Neutrophils % Seg Neuts % (Manual) Lymphocytes % (Manual) Seg Neutrophils # Seg Neutrophils # Man Lymphocytes # (Manual) Monocytes # (Manual) D-Dimer Heparin Anti-Xa Level 0.21 L ABG pH ABG pO2 ABG HCO3 ABG O2 Saturation ABG Base Excess ABG Hemoglobin VBG pH Oxyhemoglobin Sodium Potassium Chloride Carbon Dioxide BUN Creatinine Glucose POC Glucose 180 H 185 H Lactic Acid Calcium AST Alkaline Phosphatase Lactate Dehydrogenase Total Creatine Kinase CK-MB (CK-2) C-Reactive Protein Total Protein Albumin Urine WBC (Auto) Urine Creatinine Urine Total Protein Coronavirus (PCR) 06/16/20 06/16/20 06/16/20 01:45 09:15 10:46 WBC RBC Hgb Hct RDW Lymph % (Auto) Lynn % (Auto) Eos % (Auto) Lymph # [place] # Seg Neutrophils % Seg Neuts % (Manual) Lymphocytes % (Manual) Seg Neutrophils # Seg Neutrophils # Man Lymphocytes # (Manual) Monocytes # (Manual) D-Dimer Heparin Anti-Xa Level 0.12 L ABG pH ABG pO2 ABG HCO3 ABG O2 Saturation ABG Base Excess ABG Hemoglobin VBG pH Oxyhemoglobin Sodium Potassium Chloride Carbon Dioxide BUN 49 H Creatinine Glucose 154 H POC Glucose 140 H Lactic Acid Calcium AST Alkaline Phosphatase Lactate Dehydrogenase Total Creatine Kinase CK-MB (CK-2) C-Reactive Protein Total Protein Albumin Urine WBC (Auto) Urine Creatinine Urine Total Protein Coronavirus (PCR) Chest x-ray: report reviewed, image reviewed Additional Studies: CHEST 1 VIEW 06/13/20 INDICATION: Post extubation, COVID COMPARISON: FINDINGS: SUPPORT DEVICES: None. HEART / MEDIASTINUM: No significant abnormality. LUNGS / PLEURA: Persistent increased bronchovascular markings. No pneumothorax. ADDITIONAL FINDINGS: IMPRESSION: 1. Persistent increased bronchovascular markings Allied health notes reviewed: RT
--- NOTE | 2020-06-16 12:24 | Progress Note ---
Assessment and Plan -- Acute hypoxemic respiratory failure From COVID-19 viral infection extubated now, on high flow o2 -- s/p PEA Cardiac arrest Cardiology team on board Conservative management as per cardiology -- Acute metabolic encephalopathy, POA likely from sepsis and s/p cardiac arrest with possible anoxic injury -- Acute renal failure likely ATN Cr slowly improving Avoid ACEI and other nephrotoxic medications Nephrology following -- Coronavirus infection with b/l PNA Completed remdesivir on 06/02 Continue dexamethasone - Last dose 06/07 ID recs appreciated. Maintained on ventilator --Klebsiella pneumonia: S to cefepime, continue --CHF (congestive heart failure) Cardiology following. Ef 45% -- Coffee ground emesis -Stress ulcers Possible stress ulcers On PPI H/H remains stable GI evaluation if Hb drops again -- Hypertension Continue amlodipine, coreg, clonidine and hydralazine Monitor BP --Mild LFT elevation: likely from COVID-19. -- DVT prophylaxis SCD to bilateral lower extremities while in bed Heparin -- Advance care planning Patient is full code. poor prognosis Brief History; 64 YO Female with a medical history of HTN, Diastolic CHF, Pulmonary HTN, DM, Obesity Hypoventilation Syndrome presents to ED for evaluation of shortness of breath. Patients history taken from EMS staff, ED staff. As per staff, the EMS was notified for difficulty breathing. Upon arrival to the patient's home the patient was found to be in distress and was subsequently transported to [facility] for further evaluation and care. In route to [facility] the patient developed cardiac arrest and was treated in accordance with ACLS protocol with return of ROSC Patient was seen and evaluated in the emergency department and was found to have acute hypoxemic respiratory failure status post cardiac arrest. Patient was intubated and placed on ventilatory support. Patient admitted to ICU due to increased risk of decompensation. Critical care team consulted in ED. She was found to have COVID-19 iinfection and was started on steroids and remdesivir. ID was consulted. Cardiology was consulted for her systolic heart failure and cardiac arrest. 06/01. Patient remains intubated and on ventilatory support today. Patient has multiple organ system failure and has poor prognosis. Patient did not experience significant medical decompensation overnight but no improvement with current therapy. 06/02. Remains intubated. her BP is elevated. Started on nicardipine drip. Cardiology following. 06/03-06/04. BP is better. Hb stable. Completed remdesivir. ID , Cardiology and Critical care team on board 06/05. Bump in creatinine. I/O reviewed. Nephrology consulted. 06/06. Has slight improvement in renal function. Nephrology on board. On SBT today. Vitals stable. 06/07. Stable renal function. No need for HD as per nephrology. She is making urine. Plan for SBT. 06/08. Off sedation and very lethargic. Her BUN is going up - effect of steroids vs GI bleed. Her hemoglobin remains stable. Will check stool guaiac. Nephrology is following. WBC bumped to 16 today. 06/09: remains intubated, wbc trended up, Cr slightly trending down. cont TF, wean off vent as tolerated. 06/10: Cr trending down, cont to wean off vent as tolerated. 06/10; Cr much improved, cont iv fluid, tolerating tube feeding. stopped vac, iv cefepime for total 10 days. 06/11; creatinine 1.5 today, sodium level has normalized. Continue tube feeding, continue cefepime for 10 days. Continue to wean off as tolerated. 06/12: planned for extubation today 06/13: extubated yesterday, now on Bipap 06/14: patient on Bipap, remains on TF, restraint. cont to follow clinically 06/15: patient on high flow O2,remains on TF, restraint. cont to follow clinically. transfer to [facility] 06/16: Patient remains on high flow O2, intermittently on BiPAP. Tolerating tube feeding. cont to monitor at [facility] Subjective Date of service: 06/16/20 Principal diagnosis: Ac hypoxemic resp failure; COVID-19; pneumonia; CHF; Pulm HTN; OHS; DM II Interval history: Patient seen and examined Vitals reviewed, confused Patient on hogh flow O2 Tolerating tube feeding Discussed with RN at the bedside Objective - Exam Narrative Exam: General appearance: Present: obese, other (on high flow o2) - EENT Eyes: Present: PERRL - Neck Neck: Present: supple - Cardiovascular Rhythm: regular Heart Sounds: Present: S1 & S2 - Extremities Extremities: No edema - Abdominal General gastrointestinal: soft, non-tender, non-distended - Neurologic Neurologic: alert and awake, no focal deficit, confused Skin: No rash warm and dry Musculoskeletal: No joint effusion or erythema Psychiatric: agitated on restraint - Constitutional Vitals: Vital Signs - 12hr 06/16/20 06/16/20 06/16/20 00:30 01:00 01:30 Temperature Pulse Rate 85 74 76 Pulse Rate [ From Monitor] Respiratory 16 15 17 Rate Blood Pressure 142/63 154/61 154/61 O2 Sat by Pulse 100 100 100 Oximetry 06/16/20 06/16/20 06/16/20 02:00 02:30 03:00 Temperature Pulse Rate 74 74 72 Pulse Rate [ From Monitor] Respiratory 18 15 14 Rate Blood Pressure 161/64 161/64 165/63 O2 Sat by Pulse 100 100 100 Oximetry 06/16/20 06/16/20 06/16/20 03:30 04:00 04:30 Temperature Pulse Rate 73 70 81 Pulse Rate [ 84 From Monitor] Respiratory 14 15 19 Rate Blood Pressure 165/63 159/62 159/62 O2 Sat by Pulse 100 100 100 Oximetry 06/16/20 06/16/20 06/16/20 05:00 05:30 06:00 Temperature Pulse Rate 80 82 73 Pulse Rate [ From Monitor] Respiratory 16 18 16 Rate Blood Pressure 175/73 175/73 169/74 O2 Sat by Pulse 100 100 100 Oximetry 06/16/20 06/16/20 06/16/20 06:30 06:55 06:56 Temperature Pulse Rate 76 Pulse Rate [ From Monitor] Respiratory 16 Rate Blood Pressure 169/74 169/74 169/74 O2 Sat by Pulse 100 Oximetry 06/16/20 06/16/20 06/16/20 07:00 07:30 08:00 Temperature 98.4 F Pulse Rate 81 76 70 Pulse Rate [ 71 From Monitor] Respiratory 16 14 15 Rate Blood Pressure 179/77 179/77 146/61 O2 Sat by Pulse 100 100 100 Oximetry 06/16/20 06/16/20 06/16/20 08:30 09:00 09:06 Temperature Pulse Rate 72 70 Pulse Rate [ From Monitor] Respiratory 18 13 Rate Blood Pressure 146/61 153/71 O2 Sat by Pulse 100 100 99 Oximetry 06/16/20 06/16/20 06/16/20 09:30 10:00 10:13 Temperature Pulse Rate 71 71 71 Pulse Rate [ From Monitor] Respiratory 19 19 Rate Blood Pressure 153/71 149/64 153/73 O2 Sat by Pulse 99 99 Oximetry 06/16/20 06/16/20 10:30 11:00 Temperature Pulse Rate 81 76 Pulse Rate [ From Monitor] Respiratory 17 21 Rate Blood Pressure 149/64 164/71 O2 Sat by Pulse 99 98 Oximetry - Labs CBC & Chem 7: 06/15/20 04:24 06/16/20 09:15 Labs: Abnormal lab results 06/13/20 06/15/20 06/15/20 Range/Units 12:28 12:33 17:07 Heparin Anti-Xa Level (0.3-0.7) U.I./ml BUN (7-17) mg/dL Glucose (65-100) mg/dL POC Glucose 165 H 180 H 185 H (70-105) 06/16/20 06/16/20 06/16/20 Range/Units 00:22 01:45 09:15 Heparin Anti-Xa Level 0.21 L (0.3-0.7) U.I./ml BUN 49 H (7-17) mg/dL Glucose 154 H (65-100) mg/dL POC Glucose 140 H (70-105) 06/16/20 Range/Units 10:46 Heparin Anti-Xa Level 0.12 L (0.3-0.7) U.I./ml BUN (7-17) mg/dL Glucose (65-100) mg/dL POC Glucose (70-105)
--- NOTE | 2020-06-16 14:20 | Progress Note ---
Assessment and Plan Cultures: Coronavirus PCR: Positive 05/28/2020 blood culture: no growth 05/28/2020 tracheal aspirate: Usual respiratory bobo 05/28/2020 urine culture: No growth 06/03/2020 urine culture: No growth Sputum culture: Klebsiella A/P: 64-year-old female with hypertension, diastolic CHF, pulmonary hypertension, diabetes, obesity hypoventilation syndrome was admitted to the emergency room after she called EMS due to difficulty breathing. On the way to the hospital, patient developed cardiac arrest and was treated as per ACLS protocol: #Bilateral pneumonia: Secondary to COVID-19. Completed 5 days of IV Remdesivir 06/02/2020. #Acute hypoxic respiratory failure: On mechanical ventilation. Minimal vent settings. #Klebsiella pneumonia: S to cefepime, continue #Status post PEA arrest, encephalopathy #HF: EF 45-50% #Mild LFT elevation: likely from COVID-19. #Mild AVANI Recs: Continue to monitor. Continue cefepime to complete 10 days Keisha Chaudhari MD [facility] ([facility]) M: [phone] O: [phone] F: [phone] Subjective Date of service: 06/16/20 Principal diagnosis: Ac hypoxemic resp failure; COVID-19; pneumonia; CHF; Pulm HTN; OHS; DM II Interval history: Afebrile, normal white count. Objective - Constitutional Vitals: Vital Signs Temp Pulse Resp BP Pulse Ox 98.4 F 75 19 161/73 99 06/16/20 08:00 06/16/20 13:00 06/16/20 13:00 06/16/20 13:00 06/16/20 13:27 Temperature -Last 24 Hours Temperature 98.4 F Temperature 97.7 F - Labs CBC & Chem 7: 06/15/20 04:24 06/16/20 09:15 Labs: Abnormal lab results 06/15/20 06/15/20 06/16/20 Range/Units 12:33 17:07 00:22 Heparin Anti-Xa Level 0.21 L (0.3-0.7) U.I./ml BUN (7-17) mg/dL Glucose (65-100) mg/dL POC Glucose 180 H 185 H (70-105) 06/16/20 06/16/20 06/16/20 Range/Units 01:45 09:15 10:46 Heparin Anti-Xa Level 0.12 L (0.3-0.7) U.I./ml BUN 49 H (7-17) mg/dL Glucose 154 H (65-100) mg/dL POC Glucose 140 H (70-105)
--- NOTE | 2020-06-16 20:02 | Progress Note ---
Assessment and Plan - Patient Problems (1) Acute kidney injury (AVANI) with acute tubular necrosis (ATN) Current Visit: Yes Status: Acute Plan to address problem: Kidney function has been improving. Patient is nonoliguric. Kidney function is now improving. Follow-up electrolytes and renal function (2) Hypernatremia Current Visit: Yes Status: Acute Plan to address problem: [place] on hold. Sodium has improved to normal. Continue free water intake and fo llow up Sodium (3) Acute hypoxemic respiratory failure Current Visit: Yes Status: Acute Plan to address problem: Being managed by pulmonary. S/p Extubation. Remains stable (4) Cardiac arrest Current Visit: Yes Status: Acute Plan to address problem: Patient is improving (5) Metabolic encephalopathy Current Visit: Yes Status: Acute Plan to address problem: Mental status is improving (6) Pneumonia due to COVID-19 virus Current Visit: Yes Status: Acute Plan to address problem: Patient has completed 5 days of Remdesevir. Completed course of steroids. Patient is improving (7) Cardiomyopathy Current Visit: No Status: Acute Qualifiers: Cardiomyopathy type: unspecified Qualified Code(s): I42.9 - Cardiomyopathy, unspecified Plan to address problem: OLasix has been stopped Patient is stable (8) Hyperglycemia due to type 2 diabetes mellitus Current Visit: No Status: Acute Qualifiers: Diabetes mellitus snf insulin use: without termite control servicer use Qualified Code(s): E11.65 - Type 2 diabetes mellitus with hyperglycemia Plan to address problem: Blood sugar management by primary attending Subjective Date of service: 06/16/20 Principal diagnosis: Ac hypoxemic resp failure; COVID-19; pneumonia; CHF; Pulm HTN; OHS; DM II Interval history: SARS Corovirus 2 positive status. Patient was not examined at the bedside today due to Personal protective equipment conservation due the COVID-19 pandemic and also to decrease exposure of [employer] Officer. Reviewed clinical data, nurses notes, and Physician notes. Defer Physical examination to the Primary Attending MD. Extubated. Now in IMCU. Afebrile Objective - Exam Narrative Exam: Patient was not examined today due to PPE conservation given the COVID-19 pandemic. Middle-aged female lying in bed - Vital Signs Vital signs: Vital Signs - 12hr 06/16/20 06/16/20 06/16/20 08:00 08:30 09:00 Temperature 98.4 F Pulse Rate 70 72 70 Pulse Rate [ 71 From Monitor] Respiratory 15 18 13 Rate Blood Pressure 146/61 146/61 153/71 O2 Sat by Pulse 100 100 100 Oximetry 06/16/20 06/16/20 06/16/20 09:06 09:30 10:00 Temperature Pulse Rate 71 71 Pulse Rate [ From Monitor] Respiratory 19 19 Rate Blood Pressure 153/71 149/64 O2 Sat by Pulse 99 99 99 Oximetry 06/16/20 06/16/20 06/16/20 10:13 10:30 11:00 Temperature Pulse Rate 71 81 76 Pulse Rate [ From Monitor] Respiratory 17 21 Rate Blood Pressure 153/73 149/64 164/71 O2 Sat by Pulse 99 98 Oximetry 06/16/20 06/16/20 06/16/20 11:30 12:00 12:30 Temperature 98.7 F Pulse Rate 73 71 71 Pulse Rate [ 73 From Monitor] Respiratory 18 20 19 Rate Blood Pressure 164/71 146/65 146/65 O2 Sat by Pulse 98 99 98 Oximetry 06/16/20 06/16/20 06/16/20 13:00 13:27 13:30 Temperature Pulse Rate 75 77 Pulse Rate [ From Monitor] Respiratory 19 17 Rate Blood Pressure 161/73 161/73 O2 Sat by Pulse 99 99 99 Oximetry 06/16/20 06/16/20 06/16/20 14:00 14:30 14:34 Temperature Pulse Rate 71 77 74 Pulse Rate [ From Monitor] Respiratory 19 19 Rate Blood Pressure 164/68 164/68 164/68 O2 Sat by Pulse 99 99 Oximetry 06/16/20 06/16/20 06/16/20 14:35 15:00 15:30 Temperature Pulse Rate 74 69 72 Pulse Rate [ From Monitor] Respiratory 19 19 Rate Blood Pressure 164/68 161/63 161/63 O2 Sat by Pulse 98 98 Oximetry 06/16/20 06/16/20 06/16/20 16:00 16:30 17:00 Temperature 97.7 F Pulse Rate 69 74 70 Pulse Rate [ 71 From Monitor] Respiratory 18 17 19 Rate Blood Pressure 155/57 155/57 166/71 O2 Sat by Pulse 98 98 99 Oximetry 06/16/20 06/16/20 06/16/20 17:30 18:00 19:00 Temperature Pulse Rate 73 75 87 Pulse Rate [ From Monitor] Respiratory 17 19 17 Rate Blood Pressure 155/57 180/78 180/78 O2 Sat by Pulse 99 98 98 Oximetry 06/16/20 19:58 Temperature Pulse Rate 89 Pulse Rate [ From Monitor] Respiratory Rate Blood Pressure O2 Sat by Pulse Oximetry - Lab 06/15/20 04:24 06/16/20 09:15 Most recent lab results ABG pH 7.409 pH Units (7.350-7.450) 06/12/20 09:20 ABG pCO2 42.0 mm Hg 06/12/20 09:20 ABG pO2 91.1 mm Hg (80.0-90.0) H 06/12/20 09:20 ABG HCO3 25.9 mmol/L (20.0-26.0) 06/12/20 09:20 ABG O2 Saturation 97.0 % (95.0-99.0) 06/12/20 09:20 Calcium 9.0 mg/dL (8.4-10.2) 06/16/20 09:15 Urine Creatinine 82.2 mg/dL (0.1-20.0) H 06/06/20 04:00 Urine Sodium 20 mmol/L 06/06/20 04:00 Urine Total Protein 196 mg/dL (5-11.8) H 06/06/20 04:00 Medications & Allergies - Medications Allergies/Adverse Reactions: Allergies No Known Allergies Allergy (Verified 01/21/20 12:28) Home Medications: Home Medications Medication Instructions Recorded Confirmed Last Taken Type AtorvaSTATin [Lipitor] 20 mg PO QHS 05/12/20 05/29/20 Unknown History lisinopriL [Zestril TAB] 40 mg PO QDAY 05/12/20 05/29/20 Unknown History metFORMIN [Glucophage] 850 mg PO BID 05/12/20 05/29/20 Unknown History Acetaminophen [Acetaminophen TAB] 650 mg PO Q4H PRN tablet 05/13/20 05/29/20 Unknown Rx Dicyclomine [Bentyl] 20 mg PO BID #20 tablet 05/13/20 05/29/20 Unknown Rx Famotidine [Pepcid] 20 mg PO BID #30 tablet 05/13/20 05/29/20 Unknown Rx carvediloL [Coreg] 6.25 mg PO BID #60 05/13/20 05/29/20 Unknown Rx Active Medications: Generic Name Dose Route Start Last Admin Trade Name Freq PRN Reason Stop Dose Admin Acetaminophen 650 mg 06/09/20 10:57 06/09/20 20:28 Tylenol FEEDTUBE 650 mg Q6H PRN Administration Fever >101 Amlodipine Besylate 10 mg 06/02/20 11:00 06/16/20 10:15 Amlodipine PO 10 mg DAILY NELSON Administration Lipase/Protease/Amylase 1 each 05/29/20 13:39 Pancremu Lawson 10,500 Unit FEEDTUBE PRN PRN For Clogged Feeding Tube Carvedilol 12.5 mg 06/03/20 10:00 06/16/20 10:13 Coreg PO 12.5 mg BID NELSON Administration Clonidine HCl 0.1 mg 06/04/20 06:00 06/16/20 14:35 Catapres PO 0.1 mg Q8HR NELSON Administration Clonidine HCl 0.2 mg 06/04/20 06:00 06/16/20 14:35 Catapres PO 0.2 mg Q8HR NELSON Administration Glycopyrrolate 2 mg 06/09/20 14:00 06/16/20 14:34 Glycopyrrolate PO 2 mg TID NELSON Administration Hydralazine HCl 50 mg 06/03/20 09:00 06/16/20 14:34 Apresoline PO 50 mg Q8HR NELSON Administration Hydrophilic Ointment 1 applic 05/28/20 13:49 Vaseline Lip Therapy TP Q2HR PRN Dry Lips Heparin Sodium/Sodium Chloride 25,000 unit in 500 mls @ 30 mls/hr 05/29/20 15:00 06/16/20 19:30 Heparin/ 0.45% Nacl-25,000 Unit/500 Ml IV 1,800 units/hr TITR NELSON 36 mls/hr Titration Protocol 1,500 UNITS/HR Cefepime HCl 2 gm in 100 mls @ 200 mls/hr 06/11/20 10:00 06/16/20 10:12 Cefepime/Ns 2 Gm/100 Ml IV 06/18/20 12:00 200 mls/hr Q12HR NELSON Administration Protocol Insulin Glargine 10 units 06/08/20 22:00 06/15/20 21:39 Lantus SUB-Q 10 units QHS NELSON Administration Insulin Human Lispro 0 unit 05/29/20 18:00 06/16/20 17:49 Humalog SUB-Q 3 unit Q6H NELSON Administration Protocol Labetalol HCl 20 mg 06/03/20 09:00 06/08/20 23:51 Labetalol IV 20 mg Q4H PRN Administration HYPERTENSION Lansoprazole 30 mg 06/05/20 22:00 06/16/20 10:14 Prevacid Solutab FEEDTUBE 30 mg BID NELSON Administration Levetiracetam 500 mg 06/16/20 11:00 06/16/20 10:45 Keppra PO 500 mg BID NELSON Administration Metoclopramide HCl 10 mg 06/10/20 20:00 06/16/20 17:49 Reglan IV 10 mg Q6H NELSON Administration Multi-Ingred Cream/Lotion/Oil/Oint 1 applic 05/28/20 13:49 Artificial Tears Ophth Oint OU Q4HR PRN Dry Eye(s) Ondansetron HCl 4 mg 06/02/20 09:00 06/09/20 16:48 Zofran IV 4 mg Q8H PRN Administration Nausea And Vomiting Quetiapine Fumarate 50 mg 06/14/20 22:00 06/15/20 21:34 Seroquel PO 50 mg QHS NELSON Administration Scopolamine 1 each 06/05/20 14:00 06/14/20 09:42 Transderm-Scop TD 1 each Q3D NELSON Administration Senna 17.6 mg 06/03/20 10:00 06/16/20 10:15 Senokot FEEDTUBE 17.6 mg BID NELSON Administration Simple Syrup 15 ml 05/29/20 13:39 Simple Syrup FEEDTUBE PRN PRN Hypoglycemia Simple Syrup 30 ml 05/29/20 13:39 Simple Syrup FEEDTUBE PRN PRN Hypoglycemia Sodium Bicarbonate 325 mg 05/29/20 13:39 Sodium Bicarbonate FEEDTUBE PRN PRN For Clogged Feeding Tube Sodium Bicarbonate 650 mg 06/06/20 10:00 06/16/20 10:13 Sodium Bicarbonate PO 650 mg BID NELSON Administration Sodium Chloride 10 ml 05/28/20 22:00 06/16/20 10:32 Sodium Chloride Flush Syringe 10 Ml IV 10 ml BID NELSON Administration Sodium Chloride 10 ml 05/28/20 19:08 06/16/20 17:50 Sodium Chloride Flush Syringe 10 Ml IV 10 ml PRN PRN Administration LINE FLUSH
[2020-06-16] MEDS: INSULIN GLARGINE 100 UNITS/ML SUB-Q SCH (21:26)
[2020-06-16] MEDS: QUEtiapine 25 MG TAB PO SCH (21:27)
[2020-06-17] MEDS: INSULIN LISPRO 100 UNIT/ML VIAL 3 mL SUB-Q SCH ×4 (00:21→18:30)
[2020-06-17] MEDS: METOCLOPRAMIDE 10 MG/2 ML INJ IV SCH ×4 (04:07→20:13)
[2020-06-17] MEDS: hydrALAZINE 25 MG TAB PO SCH ×3 (06:23→22:30)
[2020-06-17] MEDS: cloNIDine 0.2 MG TAB PO SCH ×3 (06:23→22:28)
[2020-06-17] MEDS: cloNIDine 0.1 MG TAB PO SCH ×3 (06:23→22:30)
[2020-06-17] MEDS: CEFEPIME/NS 2 GM/100 ML 2 GM/100 ML BAG IV SCH ×2 (09:37→22:30)
[2020-06-17] MEDS: carvediloL 12.5 MG TAB PO SCH ×2 (09:38→22:29)
[2020-06-17] MEDS: SENNOSIDES ORAL LIQD 8.8 MG/5 ML ORAL LIQD FEEDTUBE SCH ×2 (09:38→22:28)
[2020-06-17] MEDS: levETIRAcetam 500 MG/5 ML ORAL LIQD PO SCH ×2 (09:38→22:29)
[2020-06-17] MEDS: SCOPOLAMINE TRANSDERMAL PATCH 72 HR TD SCH (09:39)
[2020-06-17] MEDS: SODIUM BICARBONATE 650 MG TAB PO SCH ×2 (09:39→22:29)
[2020-06-17] MEDS: GLYCOPYRROLATE 2 MG TAB PO SCH ×3 (09:39→20:13)
[2020-06-17] MEDS: LANSOPRAZOLE 30 MG SOLUTAB FEEDTUBE SCH ×2 (09:39→22:28)
[2020-06-17] MEDS: amLODIPine 10 MG TAB PO SCH (09:39)
[2020-06-17] MEDS: HEPARIN/ 0.45% NACL DRIP 25,000 UNIT/500 ML BAG IV SCH (12:36)
--- NOTE | 2020-06-17 13:56 | Progress Note ---
Assessment and Plan Patient sleeping at this time. Patient Placed on BIPAP 16/8,Rate 20,FIO2 30% and O2 saturation running 100%. No acute respiratory distress at rest. Tolerating BIPAP.Patient morbidly Obese. Patient posive for COVID Virus infection. Patient afebrile. No leukocytosis. Patient is on Cefepime, I/V heparin and prevacid. Chest xray done 06/13/20 reported Persistent increased bronchovascular markings. I spent critical care time of 35 minutes on this patient, reviewing the chart, review labs, xrays, Examining the patient, talking to the nursing staff, respiratory therapy and work out plan of treatment. - Patient Problems (1) Acute hypoxemic respiratory failure Current Visit: Yes Status: Acute Plan to address problem: BIPAP 16/8, rate 20, FIO2 30%. (2) Coronavirus infection Current Visit: Yes Status: Acute Plan to address problem: Patient is on I/V heaparin. Management as per infectious diseases. (3) Acute kidney injury (AVANI) with acute tubular necrosis (ATN) Current Visit: Yes Status: Acute Plan to address problem: Management as per nephrology. (4) CHF (congestive heart failure) Current Visit: Yes Status: Acute Qualifiers: Heart failure type: systolic Heart failure chronicity: acute Qualified Code(s): I50.21 - Acute systolic (congestive) heart failure Plan to address problem: Management as per cardiology. (5) Cardiac arrest Current Visit: Yes Status: Acute Plan to address problem: Patient resucitated. ROSC. Presently resting on BIPAP at this time. (6) Pneumonia due to COVID-19 virus Current Visit: Yes Status: Acute Plan to address problem: Patient is on cefepime. Subjective Date of service: 06/17/20 Principal diagnosis: Ac hypoxemic resp failure; COVID-19; pneumonia; CHF; Pulm HTN; OHS; DM II Interval history: Patient sleeping at this time. Patient Placed on BIPAP 16/8,Rate 20,FIO2 30% and O2 saturation running 100%. No acute respiratory distress at rest. Tolerating BIPAP.Patient morbidly Obese. Patient posive for COVID Virus infection. Patient afebrile. No leukocytosis. Patient is on Cefepime, I/V heparin and prevacid. Chest xray done 06/13/20 reported Persistent increased bronchovascular markings Objective Vital Signs - 12hr 06/17/20 06/17/20 06/17/20 02:00 02:43 03:00 Temperature Pulse Rate 78 76 74 Pulse Rate [ From Monitor] Respiratory 17 22 19 Rate Blood Pressure 156/72 156/72 166/73 O2 Sat by Pulse 99 100 100 Oximetry 06/17/20 06/17/20 06/17/20 03:55 04:00 04:13 Temperature 99.3 F Pulse Rate 85 70 Pulse Rate [ 69 From Monitor] Respiratory 17 20 Rate Blood Pressure 175/77 O2 Sat by Pulse 100 98 Oximetry 06/17/20 06/17/20 06/17/20 05:00 06:00 06:23 Temperature Pulse Rate 73 75 75 Pulse Rate [ From Monitor] Respiratory 15 19 Rate Blood Pressure 150/56 161/65 161/65 O2 Sat by Pulse 100 100 Oximetry 06/17/20 06/17/20 06/17/20 07:00 08:00 09:00 Temperature 97.9 F Pulse Rate 72 72 68 Pulse Rate [ 73 From Monitor] Respiratory 15 15 15 Rate Blood Pressure 171/71 171/78 165/65 O2 Sat by Pulse 100 100 100 Oximetry 06/17/20 06/17/20 06/17/20 09:38 09:39 10:00 Temperature Pulse Rate 72 Pulse Rate [ From Monitor] Respiratory 20 Rate Blood Pressure 165/85 165/85 174/60 O2 Sat by Pulse 100 Oximetry 06/17/20 06/17/20 06/17/20 11:00 11:55 12:00 Temperature 98.4 F Pulse Rate 73 71 Pulse Rate [ 76 From Monitor] Respiratory 19 19 Rate Blood Pressure 185/78 169/73 O2 Sat by Pulse 100 100 Oximetry 06/17/20 06/17/20 13:29 13:30 Temperature Pulse Rate Pulse Rate [ From Monitor] Respiratory Rate Blood Pressure 176/75 176/75 O2 Sat by Pulse Oximetry Constitutional: no acute distress, asleep, other (Morbidly Obese female. Resting on BIPAP.) Eyes: non-icteric ENT: other Neck: supple, no lymphadenopathy, no JVD, other (large neck circumference) Effort: normal Ascultation: Bilateral: diminished breath sounds, rhonchi Percussion: Bilateral: not dull Cardiovascular: regular rate and rhythm, other (S1,S2) Gastrointestinal: normoactive bowel sounds, soft, non-tender, non-distended Integumentary: normal Extremities: no cyanosis, no edema, pink and warm, pulses normal, no ischemia or petechiae Neurologic: normal mental status, non-focal exam (grossly), pupils equal and round, motor strength normal and Psychiatric: mood appropriate, affect normal CBC and BMP: 06/15/20 04:24 06/16/20 09:15 ABG, PT/INR, D-dimer: ABG ABG pH 7.409 pH Units (7.350-7.450) 06/12/20 09:20 POC ABG pCO2 37.4 mmHg (32.0-48.0) 06/11/20 11:11 ABG pCO2 42.0 mm Hg 06/12/20 09:20 POC ABG pO2 101.9 mmHg (83-108) 06/11/20 11:11 ABG pO2 91.1 mm Hg (80.0-90.0) H 06/12/20 09:20 ABG O2 Saturation 97.0 % (95.0-99.0) 06/12/20 09:20 PT/INR, D-dimer PT 14.2 Sec. (12.2-14.9) 05/29/20 15:10 INR 1.08 (0.87-1.13) 05/29/20 15:10 D-Dimer 414.52 ng/mlDDU (0-234) H 06/04/20 04:19 Abnormal lab findings: Abnormal Labs 05/28/20 05/28/20 05/28/20 13:29 13:47 13:47 WBC RBC Hgb Hct RDW 15.3 H Lymph % (Auto) [place] % (Auto) Eos % (Auto) Lymph # [place] # Seg Neutrophils % Seg Neuts % (Manual) Lymphocytes % (Manual) Seg Neutrophils # Seg Neutrophils # Man Lymphocytes # (Manual) Monocytes # (Manual) D-Dimer Heparin Anti-Xa Level ABG pH ABG pO2 ABG HCO3 ABG O2 Saturation ABG Base Excess ABG Hemoglobin VBG pH Oxyhemoglobin Sodium Potassium 6.6 H* Chloride 109.2 H Carbon Dioxide 17 L BUN 29 H Creatinine 1.3 H Glucose 265 H POC Glucose 248 H Lactic Acid Calcium 8.1 L AST 63 H Alkaline Phosphatase Lactate Dehydrogenase Total Creatine Kinase 301 H CK-MB (CK-2) 4.3 H C-Reactive Protein Total Protein 5.4 L Albumin 2.6 L Urine WBC (Auto) Urine Creatinine Urine Total Protein Coronavirus (PCR) 05/28/20 05/28/20 05/28/20 13:47 13:47 14:46 WBC RBC Hgb Hct RDW Lymph % (Auto) [place] % (Auto) Eos % (Auto) Lymph # [place] # Seg Neutrophils % Seg Neuts % (Manual) Lymphocytes % (Manual) Seg Neutrophils # Seg Neutrophils # Man Lymphocytes # (Manual) Monocytes # (Manual) D-Dimer Heparin Anti-Xa Level ABG pH ABG pO2 ABG HCO3 ABG O2 Saturation ABG Base Excess ABG Hemoglobin VBG pH 7.152 L* Oxyhemoglobin Sodium Potassium 7.2 H* Chloride Carbon Dioxide BUN Creatinine Glucose POC Glucose Lactic Acid 3.40 H* Calcium AST Alkaline Phosphatase Lactate Dehydrogenase Total Creatine Kinase CK-MB (CK-2) C-Reactive Protein Total Protein Albumin Urine WBC (Auto) Urine Creatinine Urine Total Protein Coronavirus (PCR) 05/28/20 05/28/20 05/28/20 15:33 15:33 15:51 WBC RBC Hgb Hct RDW Lymph % (Auto) [place] % (Auto) Eos % (Auto) Lymph # [place] # Seg Neutrophils % Seg Neuts % (Manual) Lymphocytes % (Manual) Seg Neutrophils # Seg Neutrophils # Man Lymphocytes # (Manual) Monocytes # (Manual) D-Dimer 8780.43 H Heparin Anti-Xa Level ABG pH 7.284 L ABG pO2 273.0 H ABG HCO3 ABG O2 Saturation 99.4 H ABG Base Excess -6.1 L ABG Hemoglobin 17.2 H VBG pH Oxyhemoglobin Sodium Potassium Chloride Carbon Dioxide BUN Creatinine Glucose 152 H POC Glucose Lactic Acid Calcium AST Alkaline Phosphatase Lactate Dehydrogenase 365 H Total Creatine Kinase CK-MB (CK-2) C-Reactive Protein Total Protein Albumin Urine WBC (Auto) Urine Creatinine Urine Total Protein Coronavirus (PCR) 05/28/20 05/28/20 05/28/20 16:30 20:41 23:20 WBC RBC Hgb Hct RDW Lymph % (Auto) [place] % (Auto) Eos % (Auto) Lymph # [place] # Seg Neutrophils % Seg Neuts % (Manual) Lymphocytes % (Manual) Seg Neutrophils # Seg Neutrophils # Man Lymphocytes # (Manual) Monocytes # (Manual) D-Dimer Heparin Anti-Xa Level ABG pH ABG pO2 ABG HCO3 ABG O2 Saturation ABG Base Excess ABG Hemoglobin VBG pH Oxyhemoglobin Sodium Potassium Chloride Carbon Dioxide BUN Creatinine Glucose POC Glucose 225 H 224 H Lactic Acid Calcium AST Alkaline Phosphatase Lactate Dehydrogenase Total Creatine Kinase CK-MB (CK-2) C-Reactive Protein Total Protein Albumin Urine WBC (Auto) 17.0 H Urine Creatinine Urine Total Protein Coronavirus (PCR) 05/28/20 05/29/20 05/29/20 Unknown 04:35 04:43 WBC RBC 3.48 L Hgb 9.8 L Hct 29.4 L RDW 16.0 H Lymph % (Auto) 7.4 L [place] % (Auto) Eos % (Auto) Lymph # 0.7 L [place] # Seg Neutrophils % 89.1 H Seg Neuts % (Manual) Lymphocytes % (Manual) Seg Neutrophils # 8.1 H Seg Neutrophils # Man Lymphocytes # (Manual) Monocytes # (Manual) D-Dimer Heparin Anti-Xa Level ABG pH ABG pO2 ABG HCO3 19.3 L ABG O2 Saturation ABG Base Excess -4.5 L ABG Hemoglobin 9.7 L VBG pH Oxyhemoglobin Sodium Potassium Chloride Carbon Dioxide BUN Creatinine Glucose POC Glucose Lactic Acid Calcium AST Alkaline Phosphatase Lactate Dehydrogenase Total Creatine Kinase CK-MB (CK-2) C-Reactive Protein Total Protein Albumin Urine WBC (Auto) Urine Creatinine Urine Total Protein Coronavirus (PCR) Positive A 05/29/20 05/29/20 05/29/20 04:43 15:10 17:17 WBC RBC Hgb 9.3 L Hct 28.7 L RDW Lymph % (Auto) [place] % (Auto) Eos % (Auto) Lymph # [place] # Seg Neutrophils % Seg Neuts % (Manual) Lymphocytes % (Manual) Seg Neutrophils # Seg Neutrophils # Man Lymphocytes # (Manual) Monocytes # (Manual) D-Dimer Heparin Anti-Xa Level ABG pH ABG pO2 ABG HCO3 ABG O2 Saturation ABG Base Excess ABG Hemoglobin VBG pH Oxyhemoglobin Sodium Potassium Chloride 110.2 H Carbon Dioxide 18 L BUN 32 H Creatinine 1.4 H Glucose 180 H POC Glucose 147 H Lactic Acid Calcium AST Alkaline Phosphatase Lactate Dehydrogenase Total Creatine Kinase CK-MB (CK-2) C-Reactive Protein Total Protein Albumin Urine WBC (Auto) Urine Creatinine Urine Total Protein Coronavirus (PCR) 05/30/20 05/30/20 05/30/20 00:08 00:12 04:15 WBC RBC Hgb Hct RDW Lymph % (Auto) [place] % (Auto) Eos % (Auto) Lymph # [place] # Seg Neutrophils % Seg Neuts % (Manual) Lymphocytes % (Manual) Seg Neutrophils # Seg Neutrophils # Man Lymphocytes # (Manual) Monocytes # (Manual) D-Dimer Heparin Anti-Xa Level 0.71 H ABG pH 7.460 H ABG pO2 106.0 H ABG HCO3 18.9 L ABG O2 Saturation ABG Base Excess -4.4 L ABG Hemoglobin 6.8 L VBG pH Oxyhemoglobin Sodium Potassium Chloride Carbon Dioxide BUN Creatinine Glucose POC Glucose 195 H Lactic Acid Calcium AST Alkaline Phosphatase Lactate Dehydrogenase Total Creatine Kinase CK-MB (CK-2) C-Reactive Protein Total Protein Albumin Urine WBC (Auto) Urine Creatinine Urine Total Protein Coronavirus (PCR) 05/30/20 05/30/20 05/30/20 06:07 08:37 12:33 WBC RBC Hgb Hct RDW Lymph % (Auto) [place] % (Auto) Eos % (Auto) Lymph # [place] # Seg Neutrophils % Seg Neuts % (Manual) Lymphocytes % (Manual) Seg Neutrophils # Seg Neutrophils # Man Lymphocytes # (Manual) Monocytes # (Manual) D-Dimer Heparin Anti-Xa Level 0.85 H ABG pH ABG pO2 ABG HCO3 ABG O2 Saturation ABG Base Excess ABG Hemoglobin VBG pH Oxyhemoglobin Sodium Potassium Chloride Carbon Dioxide BUN Creatinine Glucose POC Glucose 182 H 187 H Lactic Acid Calcium AST Alkaline Phosphatase Lactate Dehydrogenase Total Creatine Kinase CK-MB (CK-2) C-Reactive Protein Total Protein Albumin Urine WBC (Auto) Urine Creatinine Urine Total Protein Coronavirus (PCR) 05/30/20 05/30/20 05/30/20 15:58 17:57 23:36 WBC RBC Hgb Hct RDW Lymph % (Auto) [place] % (Auto) Eos % (Auto) Lymph # [place] # Seg Neutrophils % Seg Neuts % (Manual) Lymphocytes % (Manual) Seg Neutrophils # Seg Neutrophils # Man Lymphocytes # (Manual) Monocytes # (Manual) D-Dimer Heparin Anti-Xa Level 1.03 H ABG pH ABG pO2 ABG HCO3 ABG O2 Saturation ABG Base Excess ABG Hemoglobin VBG pH Oxyhemoglobin Sodium Potassium Chloride Carbon Dioxide BUN Creatinine Glucose POC Glucose 208 H 185 H Lactic Acid Calcium AST Alkaline Phosphatase Lactate Dehydrogenase Total Creatine Kinase CK-MB (CK-2) C-Reactive Protein Total Protein Albumin Urine WBC (Auto) Urine Creatinine Urine Total Protein Coronavirus (PCR) 05/31/20 05/31/20 05/31/20 02:16 03:55 06:16 WBC RBC Hgb 9.2 L Hct 27.5 L RDW Lymph % (Auto) [place] % (Auto) Eos % (Auto) Lymph # [place] # Seg Neutrophils % Seg Neuts % (Manual) Lymphocytes % (Manual) Seg Neutrophils # Seg Neutrophils # Man Lymphocytes # (Manual) Monocytes # (Manual) D-Dimer Heparin Anti-Xa Level ABG pH ABG pO2 94.7 H ABG HCO3 18.6 L ABG O2 Saturation ABG Base Excess -5.5 L ABG Hemoglobin 7.9 L VBG pH Oxyhemoglobin Sodium Potassium Chloride Carbon Dioxide BUN Creatinine Glucose POC Glucose 160 H Lactic Acid Calcium AST Alkaline Phosphatase Lactate Dehydrogenase Total Creatine Kinase CK-MB (CK-2) C-Reactive Protein Total Protein Albumin Urine WBC (Auto) Urine Creatinine Urine Total Protein Coronavirus (PCR) 05/31/20 05/31/20 05/31/20 12:20 13:03 18:13 WBC RBC Hgb Hct RDW Lymph % (Auto) [place] % (Auto) Eos % (Auto) Lymph # [place] # Seg Neutrophils % Seg Neuts % (Manual) Lymphocytes % (Manual) Seg Neutrophils # Seg Neutrophils # Man Lymphocytes # (Manual) Monocytes # (Manual) D-Dimer Heparin Anti-Xa Level ABG pH ABG pO2 ABG HCO3 ABG O2 Saturation ABG Base Excess ABG Hemoglobin VBG pH Oxyhemoglobin Sodium Potassium Chloride Carbon Dioxide 18 L BUN 48 H Creatinine 1.6 H Glucose 115 H POC Glucose 128 H 159 H Lactic Acid Calcium 8.3 L AST Alkaline Phosphatase Lactate Dehydrogenase Total Creatine Kinase CK-MB (CK-2) C-Reactive Protein Total Protein 5.4 L Albumin 2.4 L Urine WBC (Auto) Urine Creatinine Urine Total Protein Coronavirus (PCR) 05/31/20 06/01/20 06/01/20 23:51 04:00 05:48 WBC RBC Hgb Hct RDW Lymph % (Auto) [place] % (Auto) Eos % (Auto) Lymph # [place] # Seg Neutrophils % Seg Neuts % (Manual) Lymphocytes % (Manual) Seg Neutrophils # Seg Neutrophils # Man Lymphocytes # (Manual) Monocytes # (Manual) D-Dimer Heparin Anti-Xa Level ABG pH ABG pO2 109.8 H ABG HCO3 18.8 L ABG O2 Saturation ABG Base Excess -5.9 L ABG Hemoglobin 7.8 L VBG pH Oxyhemoglobin Sodium Potassium Chloride Carbon Dioxide BUN Creatinine Glucose POC Glucose 171 H 133 H Lactic Acid Calcium AST Alkaline Phosphatase Lactate Dehydrogenase Total Creatine Kinase CK-MB (CK-2) C-Reactive Protein Total Protein Albumin Urine WBC (Auto) Urine Creatinine Urine Total Protein Coronavirus (PCR) 06/01/20 06/01/20 06/02/20 12:28 17:29 00:08 WBC RBC Hgb Hct RDW Lymph % (Auto) [place] % (Auto) Eos % (Auto) Lymph # [place] # Seg Neutrophils % Seg Neuts % (Manual) Lymphocytes % (Manual) Seg Neutrophils # Seg Neutrophils # Man Lymphocytes # (Manual) Monocytes # (Manual) D-Dimer Heparin Anti-Xa Level ABG pH ABG pO2 ABG HCO3 ABG O2 Saturation ABG Base Excess ABG Hemoglobin VBG pH Oxyhemoglobin Sodium Potassium Chloride Carbon Dioxide BUN Creatinine Glucose POC Glucose 199 H 209 H 162 H Lactic Acid Calcium AST Alkaline Phosphatase Lactate Dehydrogenase Total Creatine Kinase CK-MB (CK-2) C-Reactive Protein Total Protein Albumin Urine WBC (Auto) Urine Creatinine Urine Total Protein Coronavirus (PCR) 06/02/20 06/02/20 06/02/20 04:20 04:20 04:44 WBC RBC Hgb 10.0 L Hct RDW Lymph % (Auto) [place] % (Auto) Eos % (Auto) Lymph # [place] # Seg Neutrophils % Seg Neuts % (Manual) Lymphocytes % (Manual) Seg Neutrophils # Seg Neutrophils # Man Lymphocytes # (Manual) Monocytes # (Manual) D-Dimer Heparin Anti-Xa Level 0.10 L ABG pH ABG pO2 150.6 H ABG HCO3 ABG O2 Saturation ABG Base Excess -4.1 L ABG Hemoglobin 11.8 L VBG pH Oxyhemoglobin Sodium Potassium Chloride Carbon Dioxide BUN Creatinine Glucose POC Glucose Lactic Acid Calcium AST Alkaline Phosphatase Lactate Dehydrogenase Total Creatine Kinase CK-MB (CK-2) C-Reactive Protein Total Protein Albumin Urine WBC (Auto) Urine Creatinine Urine Total Protein Coronavirus (PCR) 06/02/20 06/02/20 06/02/20 05:53 12:04 13:49 WBC RBC Hgb Hct RDW Lymph % (Auto) [place] % (Auto) Eos % (Auto) Lymph # [place] # Seg Neutrophils % Seg Neuts % (Manual) Lymphocytes % (Manual) Seg Neutrophils # Seg Neutrophils # Man Lymphocytes # (Manual) Monocytes # (Manual) D-Dimer Heparin Anti-Xa Level 0.28 L ABG pH ABG pO2 ABG HCO3 ABG O2 Saturation ABG Base Excess ABG Hemoglobin VBG pH Oxyhemoglobin Sodium Potassium Chloride Carbon Dioxide BUN Creatinine Glucose POC Glucose 149 H 220 H Lactic Acid Calcium AST Alkaline Phosphatase Lactate Dehydrogenase Total Creatine Kinase CK-MB (CK-2) C-Reactive Protein Total Protein Albumin Urine WBC (Auto) Urine Creatinine Urine Total Protein Coronavirus (PCR) 06/02/20 06/02/20 06/03/20 13:49 18:31 00:42 WBC RBC Hgb Hct RDW Lymph % (Auto) [place] % (Auto) Eos % (Auto) Lymph # [place] # Seg Neutrophils % Seg Neuts % (Manual) Lymphocytes % (Manual) Seg Neutrophils # Seg Neutrophils # Man Lymphocytes # (Manual) Monocytes # (Manual) D-Dimer 769.68 H Heparin Anti-Xa Level ABG pH ABG pO2 ABG HCO3 ABG O2 Saturation ABG Base Excess ABG Hemoglobin VBG pH Oxyhemoglobin Sodium Potassium Chloride Carbon Dioxide BUN Creatinine Glucose POC Glucose 225 H 212 H Lactic Acid Calcium AST Alkaline Phosphatase Lactate Dehydrogenase Total Creatine Kinase CK-MB (CK-2) C-Reactive Protein Total Protein Albumin Urine WBC (Auto) Urine Creatinine Urine Total Protein Coronavirus (PCR) 06/03/20 06/03/20 06/03/20 05:16 05:16 05:25 WBC 11.4 H RBC Hgb Hct RDW 16.4 H Lymph % (Auto) [place] % (Auto) Eos % (Auto) Lymph # [place] # Seg Neutrophils % Seg Neuts % (Manual) Lymphocytes % (Manual) Seg Neutrophils # Seg Neutrophils # Man Lymphocytes # (Manual) Monocytes # (Manual) D-Dimer Heparin Anti-Xa Level ABG pH ABG pO2 160.9 H ABG HCO3 19.4 L ABG O2 Saturation ABG Base Excess -4.9 L ABG Hemoglobin 7.0 L VBG pH Oxyhemoglobin Sodium Potassium Chloride Carbon Dioxide 18 L BUN 65 H Creatinine 2.0 H Glucose 175 H POC Glucose Lactic Acid Calcium 8.0 L AST Alkaline Phosphatase Lactate Dehydrogenase Total Creatine Kinase CK-MB (CK-2) C-Reactive Protein Total Protein 5.5 L Albumin 2.2 L Urine WBC (Auto) Urine Creatinine Urine Total Protein Coronavirus (PCR) 06/03/20 06/03/20 06/03/20 06:07 11:58 18:24 WBC RBC Hgb Hct RDW Lymph % (Auto) [place] % (Auto) Eos % (Auto) Lymph # [place] # Seg Neutrophils % Seg Neuts % (Manual) Lymphocytes % (Manual) Seg Neutrophils # Seg Neutrophils # Man Lymphocytes # (Manual) Monocytes # (Manual) D-Dimer Heparin Anti-Xa Level ABG pH ABG pO2 ABG HCO3 ABG O2 Saturation ABG Base Excess ABG Hemoglobin VBG pH Oxyhemoglobin Sodium Potassium Chloride Carbon Dioxide BUN Creatinine Glucose POC Glucose 177 H 163 H 211 H Lactic Acid Calcium AST Alkaline Phosphatase Lactate Dehydrogenase Total Creatine Kinase CK-MB (CK-2) C-Reactive Protein Total Protein Albumin Urine WBC (Auto) Urine Creatinine Urine Total Protein Coronavirus (PCR) 06/03/20 06/03/20 06/04/20 21:50 Unknown 00:26 WBC RBC Hgb Hct RDW Lymph % (Auto) [place] % (Auto) Eos % (Auto) Lymph # [place] # Seg Neutrophils % Seg Neuts % (Manual) Lymphocytes % (Manual) Seg Neutrophils # Seg Neutrophils # Man Lymphocytes # (Manual) Monocytes # (Manual) D-Dimer Heparin Anti-Xa Level ABG pH ABG pO2 ABG HCO3 ABG O2 Saturation ABG Base Excess ABG Hemoglobin VBG pH Oxyhemoglobin Sodium 135 L Potassium Chloride Carbon Dioxide 18 L BUN Creatinine Glucose POC Glucose 241 H Lactic Acid Calcium AST Alkaline Phosphatase Lactate Dehydrogenase Total Creatine Kinase CK-MB (CK-2) C-Reactive Protein Total Protein Albumin Urine WBC (Auto) 11.0 H Urine Creatinine Urine Total Protein Coronavirus (PCR) 06/04/20 06/04/20 06/04/20 03:35 04:19 04:19 WBC RBC 3.15 L Hgb 8.9 L Hct 26.8 L D RDW 15.9 H Lymph % (Auto) 6.0 L [place] % (Auto) Eos % (Auto) Lymph # 0.6 L [place] # Seg Neutrophils % 86.6 H Seg Neuts % (Manual) Lymphocytes % (Manual) Seg Neutrophils # 9.1 H Seg Neutrophils # Man Lymphocytes # (Manual) Monocytes # (Manual) D-Dimer Heparin Anti-Xa Level ABG pH 7.331 L ABG pO2 ABG HCO3 ABG O2 Saturation ABG Base Excess -4.7 L ABG Hemoglobin 11.0 L VBG pH Oxyhemoglobin 93.9 L Sodium 136 L Potassium Chloride Carbon Dioxide 20 L BUN 73 H Creatinine 2.0 H Glucose 192 H POC Glucose Lactic Acid Calcium 8.0 L AST Alkaline Phosphatase Lactate Dehydrogenase 271 H Total Creatine Kinase CK-MB (CK-2) C-Reactive Protein 2.20 H Total Protein 5.0 L Albumin 2.0 L Urine WBC (Auto) Urine Creatinine Urine Total Protein Coronavirus (PCR) 06/04/20 06/04/20 06/04/20 04:19 05:51 11:48 WBC RBC Hgb Hct RDW Lymph % (Auto) [place] % (Auto) Eos % (Auto) Lymph # [place] # Seg Neutrophils % Seg Neuts % (Manual) Lymphocytes % (Manual) Seg Neutrophils # Seg Neutrophils # Man Lymphocytes # (Manual) Monocytes # (Manual) D-Dimer 414.52 H Heparin Anti-Xa Level ABG pH ABG pO2 ABG HCO3 ABG O2 Saturation ABG Base Excess ABG Hemoglobin VBG pH Oxyhemoglobin Sodium Potassium Chloride Carbon Dioxide BUN Creatinine Glucose POC Glucose 179 H 213 H Lactic Acid Calcium AST Alkaline Phosphatase Lactate Dehydrogenase Total Creatine Kinase CK-MB (CK-2) C-Reactive Protein Total Protein Albumin Urine WBC (Auto) Urine Creatinine Urine Total Protein Coronavirus (PCR) 06/04/20 06/05/20 06/05/20 18:25 00:16 05:00 WBC RBC Hgb Hct RDW Lymph % (Auto) [place] % (Auto) Eos % (Auto) Lymph # [place] # Seg Neutrophils % Seg Neuts % (Manual) Lymphocytes % (Manual) Seg Neutrophils # Seg Neutrophils # Man Lymphocytes # (Manual) Monocytes # (Manual) D-Dimer Heparin Anti-Xa Level ABG pH 7.286 L ABG pO2 96.2 H ABG HCO3 ABG O2 Saturation ABG Base Excess -6.3 L ABG Hemoglobin 8.8 L VBG pH Oxyhemoglobin 94.8 L Sodium Potassium Chloride Carbon Dioxide BUN Creatinine Glucose POC Glucose 238 H 183 H Lactic Acid Calcium AST Alkaline Phosphatase Lactate Dehydrogenase Total Creatine Kinase CK-MB (CK-2) C-Reactive Protein Total Protein Albumin Urine WBC (Auto) Urine Creatinine Urine Total Protein Coronavirus (PCR) 0806/05/20 06/05/20 05:39 07:25 07:25 WBC RBC 2.97 L Hgb 8.7 L Hct 25.7 L RDW 16.0 H Lymph % (Auto) 8.8 L [place] % (Auto) 13.3 H Eos % (Auto) Lymph # 0.8 L [place] # 1.3 H Seg Neutrophils % 77.3 H Seg Neuts % (Manual) Lymphocytes % (Manual) Seg Neutrophils # Seg Neutrophils # Man Lymphocytes # (Manual) Monocytes # (Manual) D-Dimer Heparin Anti-Xa Level ABG pH ABG pO2 ABG HCO3 ABG O2 Saturation ABG Base Excess ABG Hemoglobin VBG pH Oxyhemoglobin Sodium 133 L Potassium Chloride Carbon Dioxide 17 L BUN 89 H Creatinine 2.8 H Glucose 176 H POC Glucose 149 H Lactic Acid Calcium 7.7 L AST Alkaline Phosphatase Lactate Dehydrogenase Total Creatine Kinase CK-MB (CK-2) C-Reactive Protein Total Protein 4.2 L Albumin 1.9 L Urine WBC (Auto) Urine Creatinine Urine Total Protein Coronavirus (PCR) 06/05/20 06/05/20 06/05/20 07:25 12:05 15:41 WBC RBC Hgb Hct RDW Lymph % (Auto) [place] % (Auto) Eos % (Auto) Lymph # [place] # Seg Neutrophils % Seg Neuts % (Manual) Lymphocytes % (Manual) Seg Neutrophils # Seg Neutrophils # Man Lymphocytes # (Manual) Monocytes # (Manual) D-Dimer Heparin Anti-Xa Level 0.76 H 0.81 H ABG pH ABG pO2 ABG HCO3 ABG O2 Saturation ABG Base Excess ABG Hemoglobin VBG pH Oxyhemoglobin Sodium Potassium Chloride Carbon Dioxide BUN Creatinine Glucose POC Glucose 198 H Lactic Acid Calcium AST Alkaline Phosphatase Lactate Dehydrogenase Total Creatine Kinase CK-MB (CK-2) C-Reactive Protein Total Protein Albumin Urine WBC (Auto) Urine Creatinine Urine Total Protein Coronavirus (PCR) 06/05/20 06/05/20 06/06/20 18:08 23:25 04:00 WBC RBC Hgb Hct RDW Lymph % (Auto) [place] % (Auto) Eos % (Auto) Lymph # [place] # Seg Neutrophils % Seg Neuts % (Manual) Lymphocytes % (Manual) Seg Neutrophils # Seg Neutrophils # Man Lymphocytes # (Manual) Monocytes # (Manual) D-Dimer Heparin Anti-Xa Level ABG pH ABG pO2 ABG HCO3 ABG O2 Saturation ABG Base Excess ABG Hemoglobin VBG pH Oxyhemoglobin Sodium Potassium Chloride Carbon Dioxide BUN Creatinine Glucose POC Glucose 223 H 169 H Lactic Acid Calcium AST Alkaline Phosphatase Lactate Dehydrogenase Total Creatine Kinase CK-MB (CK-2) C-Reactive Protein Total Protein Albumin Urine WBC (Auto) 15.0 H Urine Creatinine Urine Total Protein Coronavirus (PCR) 06/06/20 06/06/20 06/06/20 04:00 05:33 05:38 WBC RBC 2.97 L Hgb 8.7 L Hct 26.8 L RDW 16.8 H Lymph % (Auto) [place] % (Auto) Eos % (Auto) Lymph # [place] # Seg Neutrophils % Seg Neuts % (Manual) Lymphocytes % (Manual) Seg Neutrophils # Seg Neutrophils # Man Lymphocytes # (Manual) Monocytes # (Manual) D-Dimer Heparin Anti-Xa Level ABG pH ABG pO2 ABG HCO3 ABG O2 Saturation ABG Base Excess ABG Hemoglobin VBG pH Oxyhemoglobin Sodium Potassium Chloride Carbon Dioxide BUN Creatinine Glucose POC Glucose 186 H Lactic Acid Calcium AST Alkaline Phosphatase Lactate Dehydrogenase Total Creatine Kinase CK-MB (CK-2) C-Reactive Protein Total Protein Albumin Urine WBC (Auto) Urine Creatinine 82.2 H Urine Total Protein 196 H Coronavirus (PCR) 06/06/20 06/06/20 06/06/20 05:38 12:25 17:03 WBC RBC Hgb Hct RDW Lymph % (Auto) [place] % (Auto) Eos % (Auto) Lymph # [place] # Seg Neutrophils % Seg Neuts % (Manual) Lymphocytes % (Manual) Seg Neutrophils # Seg Neutrophils # Man Lymphocytes # (Manual) Monocytes # (Manual) D-Dimer Heparin Anti-Xa Level ABG pH ABG pO2 ABG HCO3 ABG O2 Saturation ABG Base Excess ABG Hemoglobin VBG pH Oxyhemoglobin Sodium 134 L Potassium 5.2 H Chloride Carbon Dioxide 18 L BUN 97 H Creatinine 2.5 H Glucose 193 H POC Glucose 239 H 252 H Lactic Acid Calcium 7.5 L AST Alkaline Phosphatase Lactate Dehydrogenase Total Creatine Kinase CK-MB (CK-2) C-Reactive Protein Total Protein 4.1 L Albumin 1.9 L Urine WBC (Auto) Urine Creatinine Urine Total Protein Coronavirus (PCR) 06/07/20 06/07/20 06/07/20 00:16 01:49 04:00 WBC RBC 2.91 L Hgb 8.4 L Hct 25.0 L RDW 16.1 H Lymph % (Auto) 5.7 L [place] % (Auto) 10.5 H Eos % (Auto) Lymph # 0.6 L [place] # 1.1 H Seg Neutrophils % 83.6 H Seg Neuts % (Manual) Lymphocytes % (Manual) Seg Neutrophils # 9.1 H Seg Neutrophils # Man Lymphocytes # (Manual) Monocytes # (Manual) D-Dimer Heparin Anti-Xa Level 0.26 L ABG pH ABG pO2 ABG HCO3 ABG O2 Saturation ABG Base Excess ABG Hemoglobin VBG pH Oxyhemoglobin Sodium Potassium Chloride Carbon Dioxide BUN Creatinine Glucose POC Glucose 173 H Lactic Acid Calcium AST Alkaline Phosphatase Lactate Dehydrogenase Total Creatine Kinase CK-MB (CK-2) C-Reactive Protein Total Protein Albumin Urine WBC (Auto) Urine Creatinine Urine Total Protein Coronavirus (PCR) 06/07/20 06/07/20 06/07/20 04:00 04:54 05:51 WBC RBC Hgb Hct RDW Lymph % (Auto) [place] % (Auto) Eos % (Auto) Lymph # [place] # Seg Neutrophils % Seg Neuts % (Manual) Lymphocytes % (Manual) Seg Neutrophils # Seg Neutrophils # Man Lymphocytes # (Manual) Monocytes # (Manual) D-Dimer Heparin Anti-Xa Level ABG pH 7.317 L ABG pO2 71.4 L ABG HCO3 ABG O2 Saturation 94.3 L ABG Base Excess -4.8 L ABG Hemoglobin 7.1 L VBG pH Oxyhemoglobin 92.2 L Sodium 133 L Potassium Chloride Carbon Dioxide 18 L BUN 100 H Creatinine 2.5 H Glucose 158 H POC Glucose 168 H Lactic Acid Calcium 7.6 L AST Alkaline Phosphatase Lactate Dehydrogenase Total Creatine Kinase CK-MB (CK-2) C-Reactive Protein Total Protein 4.7 L Albumin 2.0 L Urine WBC (Auto) Urine Creatinine Urine Total Protein Coronavirus (PCR) 06/07/20 06/07/20 06/07/20 12:03 17:17 20:10 WBC RBC Hgb Hct RDW Lymph % (Auto) [place] % (Auto) Eos % (Auto) Lymph # [place] # Seg Neutrophils % Seg Neuts % (Manual) Lymphocytes % (Manual) Seg Neutrophils # Seg Neutrophils # Man Lymphocytes # (Manual) Monocytes # (Manual) D-Dimer Heparin Anti-Xa Level 0.17 L ABG pH ABG pO2 ABG HCO3 ABG O2 Saturation ABG Base Excess ABG Hemoglobin VBG pH Oxyhemoglobin Sodium Potassium Chloride Carbon Dioxide BUN Creatinine Glucose POC Glucose 276 H 281 H Lactic Acid Calcium AST Alkaline Phosphatase Lactate Dehydrogenase Total Creatine Kinase CK-MB (CK-2) C-Reactive Protein Total Protein Albumin Urine WBC (Auto) Urine Creatinine Urine Total Protein Coronavirus (PCR) 06/08/20 06/08/20 06/08/20 00:02 04:47 04:47 WBC 16.4 H RBC 3.07 L Hgb 8.6 L Hct 26.5 L RDW 16.3 H Lymph % (Auto) [place] % (Auto) Eos % (Auto) Lymph # [place] # Seg Neutrophils % Seg Neuts % (Manual) 90.0 H Lymphocytes % (Manual) 3.0 L Seg Neutrophils # Seg Neutrophils # Man 14.8 H Lymphocytes # (Manual) 0.5 L Monocytes # (Manual) 1.1 H D-Dimer Heparin Anti-Xa Level ABG pH ABG pO2 ABG HCO3 ABG O2 Saturation ABG Base Excess ABG Hemoglobin VBG pH Oxyhemoglobin Sodium 129 L Potassium Chloride 95.6 L Carbon Dioxide 17 L BUN 106 H Creatinine 2.5 H Glucose 213 H POC Glucose 242 H Lactic Acid Calcium 7.6 L AST Alkaline Phosphatase Lactate Dehydrogenase Total Creatine Kinase CK-MB (CK-2) C-Reactive Protein Total Protein 5.0 L Albumin 2.1 L Urine WBC (Auto) Urine Creatinine Urine Total Protein Coronavirus (PCR) 06/08/20 06/08/20 06/08/20 05:40 11:55 17:54 WBC RBC Hgb Hct RDW Lymph % (Auto) [place] % (Auto) Eos % (Auto) Lymph # [place] # Seg Neutrophils % Seg Neuts % (Manual) Lymphocytes % (Manual) Seg Neutrophils # Seg Neutrophils # Man Lymphocytes # (Manual) Monocytes # (Manual) D-Dimer Heparin Anti-Xa Level ABG pH ABG pO2 ABG HCO3 ABG O2 Saturation ABG Base Excess ABG Hemoglobin VBG pH Oxyhemoglobin Sodium Potassium Chloride Carbon Dioxide BUN Creatinine Glucose POC Glucose 221 H 218 H 163 H Lactic Acid Calcium AST Alkaline Phosphatase Lactate Dehydrogenase Total Creatine Kinase CK-MB (CK-2) C-Reactive Protein Total Protein Albumin Urine WBC (Auto) Urine Creatinine Urine Total Protein Coronavirus (PCR) 08/31/20 09/01/20 09/01/20 22:01 00:09 05:16 WBC 19.0 H RBC 3.35 L Hgb 9.2 L Hct 28.5 L RDW 16.3 H Lymph % (Auto) [place] % (Auto) Eos % (Auto) Lymph # [place] # Seg Neutrophils % Seg Neuts % (Manual) 85.0 H Lymphocytes % (Manual) 7.0 L Seg Neutrophils # Seg Neutrophils # Man 16.2 H Lymphocytes # (Manual) Monocytes # (Manual) 1.3 H D-Dimer Heparin Anti-Xa Level ABG pH ABG pO2 ABG HCO3 ABG O2 Saturation ABG Base Excess ABG Hemoglobin VBG pH Oxyhemoglobin Sodium Potassium Chloride Carbon Dioxide BUN Creatinine Glucose POC Glucose 182 H 150 H Lactic Acid Calcium AST Alkaline Phosphatase Lactate Dehydrogenase Total Creatine Kinase CK-MB (CK-2) C-Reactive Protein Total Protein Albumin Urine WBC (Auto) Urine Creatinine Urine Total Protein Coronavirus (PCR) 06/09/20 06/09/20 06/09/20 05:16 05:24 11:29 WBC RBC Hgb Hct RDW Lymph % (Auto) [place] % (Auto) Eos % (Auto) Lymph # [place] # Seg Neutrophils % Seg Neuts % (Manual) Lymphocytes % (Manual) Seg Neutrophils # Seg Neutrophils # Man Lymphocytes # (Manual) Monocytes # (Manual) D-Dimer Heparin Anti-Xa Level ABG pH ABG pO2 ABG HCO3 ABG O2 Saturation ABG Base Excess ABG Hemoglobin VBG pH Oxyhemoglobin Sodium 133 L Potassium Chloride Carbon Dioxide 19 L BUN 109 H Creatinine 2.1 H Glucose 133 H POC Glucose 128 H 119 H Lactic Acid Calcium 7.7 L AST Alkaline Phosphatase < 5 L Lactate Dehydrogenase Total Creatine Kinase CK-MB (CK-2) C-Reactive Protein Total Protein 4.6 L Albumin < 0.2 L Urine WBC (Auto) Urine Creatinine Urine Total Protein Coronavirus (PCR) 06/09/20 06/10/20 06/10/20 17:32 00:00 05:49 WBC RBC Hgb Hct RDW Lymph % (Auto) [place] % (Auto) Eos % (Auto) Lymph # [place] # Seg Neutrophils % Seg Neuts % (Manual) Lymphocytes % (Manual) Seg Neutrophils # Seg Neutrophils # Man Lymphocytes # (Manual) Monocytes # (Manual) D-Dimer Heparin Anti-Xa Level 0.19 L ABG pH ABG pO2 ABG HCO3 ABG O2 Saturation ABG Base Excess ABG Hemoglobin VBG pH Oxyhemoglobin Sodium Potassium Chloride Carbon Dioxide BUN Creatinine Glucose POC Glucose 106 H 117 H Lactic Acid Calcium AST Alkaline Phosphatase Lactate Dehydrogenase Total Creatine Kinase CK-MB (CK-2) C-Reactive Protein Total Protein Albumin Urine WBC (Auto) Urine Creatinine Urine Total Protein Coronavirus (PCR) 06/10/20 06/10/20 06/10/20 05:54 07:40 11:40 WBC RBC Hgb Hct RDW Lymph % (Auto) [place] % (Auto) Eos % (Auto) Lymph # [place] # Seg Neutrophils % Seg Neuts % (Manual) Lymphocytes % (Manual) Seg Neutrophils # Seg Neutrophils # Man Lymphocytes # (Manual) Monocytes # (Manual) D-Dimer Heparin Anti-Xa Level ABG pH ABG pO2 ABG HCO3 ABG O2 Saturation ABG Base Excess ABG Hemoglobin VBG pH Oxyhemoglobin Sodium 146 H D Potassium Chloride Carbon Dioxide 20 L BUN 99 H Creatinine 1.9 H Glucose 121 H POC Glucose 127 H 138 H Lactic Acid Calcium 8.2 L AST Alkaline Phosphatase Lactate Dehydrogenase Total Creatine Kinase CK-MB (CK-2) C-Reactive Protein Total Protein Albumin Urine WBC (Auto) Urine Creatinine Urine Total Protein Coronavirus (PCR) 06/10/20 06/10/20 06/10/20 14:44 17:31 23:22 WBC RBC Hgb Hct RDW Lymph % (Auto) [place] % (Auto) Eos % (Auto) Lymph # [place] # Seg Neutrophils % Seg Neuts % (Manual) Lymphocytes % (Manual) Seg Neutrophils # Seg Neutrophils # Man Lymphocytes # (Manual) Monocytes # (Manual) D-Dimer Heparin Anti-Xa Level 0.17 L ABG pH ABG pO2 ABG HCO3 ABG O2 Saturation ABG Base Excess ABG Hemoglobin VBG pH Oxyhemoglobin Sodium Potassium Chloride Carbon Dioxide BUN Creatinine Glucose POC Glucose 128 H 114 H Lactic Acid Calcium AST Alkaline Phosphatase Lactate Dehydrogenase Total Creatine Kinase CK-MB (CK-2) C-Reactive Protein Total Protein Albumin Urine WBC (Auto) Urine Creatinine Urine Total Protein Coronavirus (PCR) 06/11/20 06/11/20 06/11/20 00:22 03:45 03:45 WBC 14.6 H RBC 2.77 L Hgb 7.9 L Hct 24.3 L RDW 16.8 H Lymph % (Auto) 6.6 L [place] % (Auto) 8.5 H Eos % (Auto) Lymph # 1.0 L [place] # 1.2 H Seg Neutrophils % 82.9 H Seg Neuts % (Manual) Lymphocytes % (Manual) Seg Neutrophils # 12.1 H Seg Neutrophils # Man Lymphocytes # (Manual) Monocytes # (Manual) D-Dimer Heparin Anti-Xa Level 0.24 L ABG pH ABG pO2 ABG HCO3 ABG O2 Saturation ABG Base Excess ABG Hemoglobin VBG pH Oxyhemoglobin Sodium Potassium Chloride Carbon Dioxide 20 L BUN 88 H Creatinine 1.5 H Glucose 111 H POC Glucose Lactic Acid Calcium 8.2 L AST Alkaline Phosphatase Lactate Dehydrogenase Total Creatine Kinase CK-MB (CK-2) C-Reactive Protein Total Protein Albumin Urine WBC (Auto) Urine Creatinine Urine Total Protein Coronavirus (PCR) 06/11/20 06/11/20 06/11/20 06:03 10:22 11:11 WBC RBC Hgb Hct RDW Lymph % (Auto) [place] % (Auto) Eos % (Auto) Lymph # [place] # Seg Neutrophils % Seg Neuts % (Manual) Lymphocytes % (Manual) Seg Neutrophils # Seg Neutrophils # Man Lymphocytes # (Manual) Monocytes # (Manual) D-Dimer Heparin Anti-Xa Level 0.26 L ABG pH ABG pO2 ABG HCO3 ABG O2 Saturation ABG Base Excess ABG Hemoglobin 9.6 L VBG pH Oxyhemoglobin Sodium Potassium Chloride Carbon Dioxide BUN Creatinine Glucose POC Glucose 114 H Lactic Acid Calcium AST Alkaline Phosphatase Lactate Dehydrogenase Total Creatine Kinase CK-MB (CK-2) C-Reactive Protein Total Protein Albumin Urine WBC (Auto) Urine Creatinine Urine Total Protein Coronavirus (PCR) 06/11/20 06/11/20 06/12/20 12:24 17:24 00:21 WBC RBC Hgb Hct RDW Lymph % (Auto) [place] % (Auto) Eos % (Auto) Lymph # [place] # Seg Neutrophils % Seg Neuts % (Manual) Lymphocytes % (Manual) Seg Neutrophils # Seg Neutrophils # Man Lymphocytes # (Manual) Monocytes # (Manual) D-Dimer Heparin Anti-Xa Level ABG pH ABG pO2 ABG HCO3 ABG O2 Saturation ABG Base Excess ABG Hemoglobin VBG pH Oxyhemoglobin Sodium Potassium Chloride Carbon Dioxide BUN Creatinine Glucose POC Glucose 119 H 126 H 117 H Lactic Acid Calcium AST Alkaline Phosphatase Lactate Dehydrogenase Total Creatine Kinase CK-MB (CK-2) C-Reactive Protein Total Protein Albumin Urine WBC (Auto) Urine Creatinine Urine Total Protein Coronavirus (PCR) 06/12/20 06/12/20 06/12/20 02:46 02:46 05:46 WBC 13.2 H RBC 2.83 L Hgb 8.3 L Hct 24.3 L RDW 16.6 H Lymph % (Auto) 6.2 L [place] % (Auto) 9.5 H Eos % (Auto) Lymph # 0.8 L [place] # 1.3 H Seg Neutrophils % 81.9 H Seg Neuts % (Manual) Lymphocytes % (Manual) Seg Neutrophils # 10.9 H Seg Neutrophils # Man Lymphocytes # (Manual) Monocytes # (Manual) D-Dimer Heparin Anti-Xa Level ABG pH ABG pO2 ABG HCO3 ABG O2 Saturation ABG Base Excess ABG Hemoglobin VBG pH Oxyhemoglobin Sodium Potassium 3.5 L Chloride Carbon Dioxide BUN 77 H Creatinine 1.3 H Glucose POC Glucose 132 H Lactic Acid Calcium 8.3 L AST Alkaline Phosphatase Lactate Dehydrogenase Total Creatine Kinase CK-MB (CK-2) C-Reactive Protein Total Protein Albumin Urine WBC (Auto) Urine Creatinine Urine Total Protein Coronavirus (PCR) 06/12/20 06/12/20 06/12/20 09:20 12:16 17:48 WBC RBC Hgb Hct RDW Lymph % (Auto) [place] % (Auto) Eos % (Auto) Lymph # [place] # Seg Neutrophils % Seg Neuts % (Manual) Lymphocytes % (Manual) Seg Neutrophils # Seg Neutrophils # Man Lymphocytes # (Manual) Monocytes # (Manual) D-Dimer Heparin Anti-Xa Level ABG pH ABG pO2 91.1 H ABG HCO3 ABG O2 Saturation ABG Base Excess ABG Hemoglobin VBG pH Oxyhemoglobin 94.8 L Sodium Potassium Chloride Carbon Dioxide BUN Creatinine Glucose POC Glucose 167 H 182 H Lactic Acid Calcium AST Alkaline Phosphatase Lactate Dehydrogenase Total Creatine Kinase CK-MB (CK-2) C-Reactive Protein Total Protein Albumin Urine WBC (Auto) Urine Creatinine Urine Total Protein Coronavirus (PCR) 06/13/20 06/13/20 06/13/20 00:08 05:37 09:09 WBC RBC Hgb Hct RDW Lymph % (Auto) [place] % (Auto) Eos % (Auto) Lymph # [place] # Seg Neutrophils % Seg Neuts % (Manual) Lymphocytes % (Manual) Seg Neutrophils # Seg Neutrophils # Man Lymphocytes # (Manual) Monocytes # (Manual) D-Dimer Heparin Anti-Xa Level 0.86 H ABG pH ABG pO2 ABG HCO3 ABG O2 Saturation ABG Base Excess ABG Hemoglobin VBG pH Oxyhemoglobin Sodium Potassium Chloride Carbon Dioxide BUN Creatinine Glucose POC Glucose 142 H 119 H Lactic Acid Calcium AST Alkaline Phosphatase Lactate Dehydrogenase Total Creatine Kinase CK-MB (CK-2) C-Reactive Protein Total Protein Albumin Urine WBC (Auto) Urine Creatinine Urine Total Protein Coronavirus (PCR) 06/13/20 06/13/20 06/13/20 12:28 17:55 21:17 WBC RBC Hgb Hct RDW Lymph % (Auto) [place] % (Auto) Eos % (Auto) Lymph # [place] # Seg Neutrophils % Seg Neuts % (Manual) Lymphocytes % (Manual) Seg Neutrophils # Seg Neutrophils # Man Lymphocytes # (Manual) Monocytes # (Manual) D-Dimer Heparin Anti-Xa Level ABG pH ABG pO2 ABG HCO3 ABG O2 Saturation ABG Base Excess ABG Hemoglobin VBG pH Oxyhemoglobin Sodium Potassium Chloride Carbon Dioxide BUN 61 H Creatinine Glucose 131 H POC Glucose 165 H 174 H Lactic Acid Calcium AST Alkaline Phosphatase Lactate Dehydrogenase Total Creatine Kinase CK-MB (CK-2) C-Reactive Protein Total Protein Albumin Urine WBC (Auto) Urine Creatinine Urine Total Protein Coronavirus (PCR) 06/13/20 06/13/20 06/14/20 21:17 23:50 05:34 WBC RBC Hgb Hct RDW Lymph % (Auto) [place] % (Auto) Eos % (Auto) Lymph # [place] # Seg Neutrophils % Seg Neuts % (Manual) Lymphocytes % (Manual) Seg Neutrophils # Seg Neutrophils # Man Lymphocytes # (Manual) Monocytes # (Manual) D-Dimer Heparin Anti-Xa Level 0.72 H ABG pH ABG pO2 ABG HCO3 ABG O2 Saturation ABG Base Excess ABG Hemoglobin VBG pH Oxyhemoglobin Sodium 146 H Potassium Chloride 107.6 H Carbon Dioxide BUN 61 H Creatinine 1.3 H Glucose 135 H POC Glucose 146 H Lactic Acid Calcium AST Alkaline Phosphatase Lactate Dehydrogenase Total Creatine Kinase CK-MB (CK-2) C-Reactive Protein Total Protein Albumin Urine WBC (Auto) Urine Creatinine Urine Total Protein Coronavirus (PCR) 06/14/20 06/14/20 06/14/20 06:11 09:28 11:30 WBC RBC Hgb Hct RDW Lymph % (Auto) [place] % (Auto) Eos % (Auto) Lymph # [place] # Seg Neutrophils % Seg Neuts % (Manual) Lymphocytes % (Manual) Seg Neutrophils # Seg Neutrophils # Man Lymphocytes # (Manual) Monocytes # (Manual) D-Dimer Heparin Anti-Xa Level 0.90 H ABG pH ABG pO2 ABG HCO3 ABG O2 Saturation ABG Base Excess ABG Hemoglobin VBG pH Oxyhemoglobin Sodium Potassium Chloride Carbon Dioxide BUN Creatinine Glucose POC Glucose 141 H 186 H Lactic Acid Calcium AST Alkaline Phosphatase Lactate Dehydrogenase Total Creatine Kinase CK-MB (CK-2) C-Reactive Protein Total Protein Albumin Urine WBC (Auto) Urine Creatinine Urine Total Protein Coronavirus (PCR) 06/14/20 06/14/20 06/14/20 16:07 18:16 23:51 WBC RBC Hgb Hct RDW Lymph % (Auto) [place] % (Auto) Eos % (Auto) Lymph # [place] # Seg Neutrophils % Seg Neuts % (Manual) Lymphocytes % (Manual) Seg Neutrophils # Seg Neutrophils # Man Lymphocytes # (Manual) Monocytes # (Manual) D-Dimer Heparin Anti-Xa Level 0.82 H ABG pH ABG pO2 ABG HCO3 ABG O2 Saturation ABG Base Excess ABG Hemoglobin VBG pH Oxyhemoglobin Sodium Potassium Chloride Carbon Dioxide BUN Creatinine Glucose POC Glucose 106 H 154 H Lactic Acid Calcium AST Alkaline Phosphatase Lactate Dehydrogenase Total Creatine Kinase CK-MB (CK-2) C-Reactive Protein Total Protein Albumin Urine WBC (Auto) Urine Creatinine Urine Total Protein Coronavirus (PCR) 06/15/20 06/15/20 06/15/20 04:24 04:24 05:59 WBC RBC 2.75 L Hgb 7.9 L Hct 24.0 L RDW 16.4 H Lymph % (Auto) 12.9 L [place] % (Auto) 8.7 H Eos % (Auto) 4.6 H Lymph # 1.1 L [place] # Seg Neutrophils % 73.2 H Seg Neuts % (Manual) Lymphocytes % (Manual) Seg Neutrophils # Seg Neutrophils # Man Lymphocytes # (Manual) Monocytes # (Manual) D-Dimer Heparin Anti-Xa Level ABG pH ABG pO2 ABG HCO3 ABG O2 Saturation ABG Base Excess ABG Hemoglobin VBG pH Oxyhemoglobin Sodium Potassium 3.4 L Chloride Carbon Dioxide BUN 55 H Creatinine 1.3 H Glucose 142 H POC Glucose 131 H Lactic Acid Calcium AST Alkaline Phosphatase Lactate Dehydrogenase Total Creatine Kinase CK-MB (CK-2) C-Reactive Protein Total Protein Albumin Urine WBC (Auto) Urine Creatinine Urine Total Protein Coronavirus (PCR) 06/15/20 06/15/20 06/16/20 12:33 17:07 00:22 WBC RBC Hgb Hct RDW Lymph % (Auto) [place] % (Auto) Eos % (Auto) Lymph # [place] # Seg Neutrophils % Seg Neuts % (Manual) Lymphocytes % (Manual) Seg Neutrophils # Seg Neutrophils # Man Lymphocytes # (Manual) Monocytes # (Manual) D-Dimer Heparin Anti-Xa Level 0.21 L ABG pH ABG pO2 ABG HCO3 ABG O2 Saturation ABG Base Excess ABG Hemoglobin VBG pH Oxyhemoglobin Sodium Potassium Chloride Carbon Dioxide BUN Creatinine Glucose POC Glucose 180 H 185 H Lactic Acid Calcium AST Alkaline Phosphatase Lactate Dehydrogenase Total Creatine Kinase CK-MB (CK-2) C-Reactive Protein Total Protein Albumin Urine WBC (Auto) Urine Creatinine Urine Total Protein Coronavirus (PCR) 06/16/20 06/16/20 06/16/20 01:45 08:06 09:15 WBC RBC Hgb Hct RDW Lymph % (Auto) [place] % (Auto) Eos % (Auto) Lymph # [place] # Seg Neutrophils % Seg Neuts % (Manual) Lymphocytes % (Manual) Seg Neutrophils # Seg Neutrophils # Man Lymphocytes # (Manual) Monocytes # (Manual) D-Dimer Heparin Anti-Xa Level ABG pH ABG pO2 ABG HCO3 ABG O2 Saturation ABG Base Excess ABG Hemoglobin VBG pH Oxyhemoglobin Sodium Potassium Chloride Carbon Dioxide BUN 49 H Creatinine Glucose 154 H POC Glucose 140 H 171 H Lactic Acid Calcium AST Alkaline Phosphatase Lactate Dehydrogenase Total Creatine Kinase CK-MB (CK-2) C-Reactive Protein Total Protein Albumin Urine WBC (Auto) Urine Creatinine Urine Total Protein Coronavirus (PCR) 06/16/20 06/16/20 06/16/20 10:46 12:33 17:54 WBC RBC Hgb Hct RDW Lymph % (Auto) [place] % (Auto) Eos % (Auto) Lymph # [place] # Seg Neutrophils % Seg Neuts % (Manual) Lymphocytes % (Manual) Seg Neutrophils # Seg Neutrophils # Man Lymphocytes # (Manual) Monocytes # (Manual) D-Dimer Heparin Anti-Xa Level 0.12 L ABG pH ABG pO2 ABG HCO3 ABG O2 Saturation ABG Base Excess ABG Hemoglobin VBG pH Oxyhemoglobin Sodium Potassium Chloride Carbon Dioxide BUN Creatinine Glucose POC Glucose 166 H 151 H Lactic Acid Calcium AST Alkaline Phosphatase Lactate Dehydrogenase Total Creatine Kinase CK-MB (CK-2) C-Reactive Protein Total Protein Albumin Urine WBC (Auto) Urine Creatinine Urine Total Protein Coronavirus (PCR) 06/16/20 06/17/20 06/17/20 18:47 00:00 02:19 WBC RBC Hgb Hct RDW Lymph % (Auto) [place] % (Auto) Eos % (Auto) Lymph # [place] # Seg Neutrophils % Seg Neuts % (Manual) Lymphocytes % (Manual) Seg Neutrophils # Seg Neutrophils # Man Lymphocytes # (Manual) Monocytes # (Manual) D-Dimer Heparin Anti-Xa Level 0.73 H 0.77 H ABG pH ABG pO2 ABG HCO3 ABG O2 Saturation ABG Base Excess ABG Hemoglobin VBG pH Oxyhemoglobin Sodium Potassium Chloride Carbon Dioxide BUN Creatinine Glucose POC Glucose 139 H Lactic Acid Calcium AST Alkaline Phosphatase Lactate Dehydrogenase Total Creatine Kinase CK-MB (CK-2) C-Reactive Protein Total Protein Albumin Urine WBC (Auto) Urine Creatinine Urine Total Protein Coronavirus (PCR) 06/17/20 06/17/20 06:07 11:42 WBC RBC Hgb Hct RDW Lymph % (Auto) [place] % (Auto) Eos % (Auto) Lymph # [place] # Seg Neutrophils % Seg Neuts % (Manual) Lymphocytes % (Manual) Seg Neutrophils # Seg Neutrophils # Man Lymphocytes # (Manual) Monocytes # (Manual) D-Dimer Heparin Anti-Xa Level ABG pH ABG pO2 ABG HCO3 ABG O2 Saturation ABG Base Excess ABG Hemoglobin VBG pH Oxyhemoglobin Sodium Potassium Chloride Carbon Dioxide BUN Creatinine Glucose POC Glucose 169 H 169 H Lactic Acid Calcium AST Alkaline Phosphatase Lactate Dehydrogenase Total Creatine Kinase CK-MB (CK-2) C-Reactive Protein Total Protein Albumin Urine WBC (Auto) Urine Creatinine Urine Total Protein Coronavirus (PCR) Allied health notes reviewed: RT
--- NOTE | 2020-06-17 15:50 | Progress Note ---
Assessment and Plan Cultures: Coronavirus PCR: Positive 05/28/2020 blood culture: no growth 05/28/2020 tracheal aspirate: Usual respiratory bobo 05/28/2020 urine culture: No growth 06/03/2020 urine culture: No growth Sputum culture: Klebsiella A/P: 64-year-old female with hypertension, diastolic CHF, pulmonary hypertension, diabetes, obesity hypoventilation syndrome was admitted to the emergency room after she called EMS due to difficulty breathing. On the way to the hospital, patient developed cardiac arrest and was treated as per ACLS protocol: #Bilateral pneumonia: Secondary to COVID-19. Completed 5 days of IV Remdesivir 06/02/2020. #Acute hypoxic respiratory failure: On mechanical ventilation. Minimal vent settings. #Klebsiella pneumonia: S to cefepime, continue #Status post PEA arrest, encephalopathy #HF: EF 45-50% #Mild LFT elevation: likely from COVID-19. #Mild AVANI Recs: Continue to monitor. Continue cefepime. Stop date tomorrow 06/18/2020. Keisha Chaudhari MD [facility] ([facility]) M: [phone] O: [phone] F: [phone] Subjective Date of service: 06/17/20 Principal diagnosis: Ac hypoxemic resp failure; COVID-19; pneumonia; CHF; Pulm HTN; OHS; DM II Interval history: Afebrile, no acute change at present. Objective - Exam Narrative Exam: Physical exam deferred due to PPE conservation strategy. Please refer to primary team's note. - Constitutional Vitals: Vital Signs Temp Pulse Resp BP Pulse Ox 97.9 F 76 20 176/75 100 06/17/20 15:00 06/17/20 12:00 06/17/20 12:00 06/17/20 13:30 06/17/20 12:00 Temperature -Last 24 Hours Temperature 97.9 F Temperature 98.4 F Temperature 97.9 F Temperature 99.3 F Temperature 99.0 F Temperature 98.7 F Temperature 97.7 F - Labs CBC & Chem 7: 06/15/20 04:24 06/16/20 09:15 Labs: Abnormal lab results 06/16/20 06/16/20 06/16/20 Range/Units 08:06 12:33 17:54 Heparin Anti-Xa Level (0.3-0.7) U.I./ml POC Glucose 171 H 166 H 151 H (70-105) 06/16/20 06/17/20 06/17/20 Range/Units 18:47 00:00 02:19 Heparin Anti-Xa Level 0.73 H 0.77 H (0.3-0.7) U.I./ml POC Glucose 139 H (70-105) 06/17/20 06/17/20 Range/Units 06:07 11:42 Heparin Anti-Xa Level (0.3-0.7) U.I./ml POC Glucose 169 H 169 H (70-105)
--- NOTE | 2020-06-17 16:21 | Progress Note ---
Assessment and Plan -- Acute hypoxemic respiratory failure From COVID-19 viral infection extubated on 06/12, on BiPAP now -- s/p PEA Cardiac arrest Cardiology team on board Conservative management as per cardiology -- Acute metabolic encephalopathy, POA likely from sepsis and s/p cardiac arrest with possible anoxic injury -- Acute renal failure likely ATN Cr slowly improving Avoid ACEI and other nephrotoxic medications Nephrology following -- Coronavirus infection with b/l PNA Completed remdesivir on 06/02 Continue dexamethasone - Last dose 06/07 ID recs appreciated. Maintained on ventilator --Klebsiella pneumonia: Continue to treat with cefepime ID following --CHF (congestive heart failure) Cardiology following. Ef 45% -- Coffee ground emesis -Stress ulcers Possible stress ulcers On PPI H/H remains stable GI evaluation if Hb drops again -- Hypertension Continue amlodipine, coreg, clonidine and hydralazine Monitor BP --Mild LFT elevation: likely from COVID-19. -- DVT prophylaxis SCD to bilateral lower extremities while in bed Heparin -- Advance care planning Patient is full code. poor prognosis Brief History; 64 YO Female with a medical history of HTN, Diastolic CHF, Pulmonary HTN, DM, Obesity Hypoventilation Syndrome presents to ED for evaluation of shortness of breath. As per staff, the EMS was notified for difficulty breathing. Upon arrival to the patient's home the patient was found to be in distress and was subsequently transported to [facility] for further evaluation and care. In route to [facility] the patient developed cardiac arrest and was treated in accordance with ACLS protocol with return of ROSC. Patient was seen and evaluated in the emergency department and was intubated and placed on ventilatory support. Patient admitted to ICU. Critical care team consulted in ED. She was found to have COVID-19 infection and was started on steroids and remdesivir. ID was consulted. Cardiology was consulted for her systolic heart failure and cardiac arrest. Patient completed treatment for COVID-19, then develop superimposed bacterial pneumonia with Klebsiella. She is now extubated, but remains confused and requiring high flow O2 and intermittent BiPAP. 06/01. Patient remains intubated and on ventilatory support today. Patient has multiple organ system failure and has poor prognosis. Patient did not experience significant medical decompensation overnight but no improvement with current therapy. 06/02. Remains intubated. her BP is elevated. Started on nicardipine drip. Cardiology following. 06/03-06/04. BP is better. Hb stable. Completed remdesivir. ID , Cardiology and Critical care team on board 06/05. Bump in creatinine. I/O reviewed. Nephrology consulted. 06/06. Has slight improvement in renal function. Nephrology on board. On SBT today. Vitals stable. 06/07. Stable renal function. No need for HD as per nephrology. She is making urine. Plan for SBT. 06/08. Off sedation and very lethargic. Her BUN is going up - effect of steroids vs GI bleed. Her hemoglobin remains stable. Will check stool guaiac. Nephrology is following. WBC bumped to 16 today. 06/09: remains intubated, wbc trended up, Cr slightly trending down. cont TF, wean off vent as tolerated. 06/10: Cr trending down, cont to wean off vent as tolerated. 06/10; Cr much improved, cont iv fluid, tolerating tube feeding. stopped vac, iv cefepime for total 10 days. 06/11; creatinine 1.5 today, sodium level has normalized. Continue tube feeding, continue cefepime for 10 days. Continue to wean off as tolerated. 06/12: planned for extubation today 06/13: extubated yesterday, now on Bipap 06/14: patient on Bipap, remains on TF, restraint. cont to follow clinically 06/15: patient on high flow O2,remains on TF, restraint. cont to follow clinically. transfer to [facility] 06/16: Patient remains on high flow O2, intermittently on BiPAP. Tolerating tube feeding. cont to monitor at [facility] 06/17; patient on BiPAP. Remains confused and on tube feeding. Continue to monitor at [facility]. Wean off O2 as tolerated. Subjective Date of service: 06/17/20 Principal diagnosis: Ac hypoxemic resp failure; COVID-19; pneumonia; CHF; Pulm HTN; OHS; DM II Interval history: Patient seen and examined Vitals reviewed, confused Patient on BiPAP Tolerating tube feeding Discussed with RN at the bedside Objective - Exam Narrative Exam: General appearance: Present: obese, other (on biPAP) - EENT Eyes: Present: PERRL - Neck Neck: Present: supple - Cardiovascular Rhythm: regular Heart Sounds: Present: S1 & S2 - Extremities Extremities: No edema - Abdominal General gastrointestinal: soft, non-tender, non-distended - Neurologic Neurologic: alert and awake, no focal deficit, confused Skin: No rash warm and dry Musculoskeletal: No joint effusion or erythema Psychiatric: agitated on restraint - Constitutional Vitals: Vital Signs - 12hr 06/17/20 06/17/20 06/17/20 05:00 06:00 06:23 Temperature Pulse Rate 73 75 75 Pulse Rate [ From Monitor] Respiratory 15 19 Rate Blood Pressure 150/56 161/65 161/65 O2 Sat by Pulse 100 100 Oximetry 06/17/20 06/17/20 06/17/20 07:00 08:00 09:00 Temperature 97.9 F Pulse Rate 72 72 68 Pulse Rate [ 73 From Monitor] Respiratory 15 15 15 Rate Blood Pressure 171/71 171/78 165/65 O2 Sat by Pulse 100 100 100 Oximetry 06/17/20 06/17/20 06/17/20 09:38 09:39 10:00 Temperature Pulse Rate 72 Pulse Rate [ From Monitor] Respiratory 20 Rate Blood Pressure 165/85 165/85 174/60 O2 Sat by Pulse 100 Oximetry 06/17/20 06/17/20 06/17/20 11:00 11:55 12:00 Temperature 98.4 F Pulse Rate 73 71 Pulse Rate [ 76 From Monitor] Respiratory 19 19 Rate Blood Pressure 185/78 169/73 O2 Sat by Pulse 100 100 Oximetry 06/17/20 06/17/20 06/17/20 13:29 13:30 15:00 Temperature 97.9 F Pulse Rate Pulse Rate [ From Monitor] Respiratory Rate Blood Pressure 176/75 176/75 O2 Sat by Pulse Oximetry - Labs CBC & Chem 7: 06/15/20 04:24 06/18/20 04:42 Labs: Abnormal lab results 06/16/20 06/16/20 06/16/20 Range/Units 08:06 12:33 17:54 Heparin Anti-Xa Level (0.3-0.7) U.I./ml POC Glucose 171 H 166 H 151 H (70-105) 06/16/20 06/17/20 06/17/20 Range/Units 18:47 00:00 02:19 Heparin Anti-Xa Level 0.73 H 0.77 H (0.3-0.7) U.I./ml POC Glucose 139 H (70-105) 06/17/20 06/17/20 Range/Units 06:07 11:42 Heparin Anti-Xa Level (0.3-0.7) U.I./ml POC Glucose 169 H 169 H (70-105)
--- NOTE | 2020-06-17 17:53 | Progress Note ---
Assessment and Plan - Patient Problems (1) Acute kidney injury (AVANI) with acute tubular necrosis (ATN) Current Visit: Yes Status: Acute Plan to address problem: Kidney function has been improving. Patient is nonoliguric. Kidney function is now improving. Follow-up electrolytes and renal function (2) Hypernatremia Current Visit: Yes Status: Acute Plan to address problem: [place] on hold. Sodium has improved to normal. Continue free water intake and fo llow up Sodium (3) Acute hypoxemic respiratory failure Current Visit: Yes Status: Acute Plan to address problem: Being managed by pulmonary. S/p Extubation. Remains stable (4) Cardiac arrest Current Visit: Yes Status: Acute Plan to address problem: Patient is improving (5) Metabolic encephalopathy Current Visit: Yes Status: Acute Plan to address problem: Mental status is improving (6) Pneumonia due to COVID-19 virus Current Visit: Yes Status: Acute Plan to address problem: Patient has completed 5 days of Remdesevir. Completed course of steroids. Patient is improving (7) Cardiomyopathy Current Visit: No Status: Acute Qualifiers: Cardiomyopathy type: unspecified Qualified Code(s): I42.9 - Cardiomyopathy, unspecified Plan to address problem: OLasix has been stopped Patient is stable (8) Hyperglycemia due to type 2 diabetes mellitus Current Visit: No Status: Acute Qualifiers: Diabetes mellitus detention insulin use: without terminal manager use Qualified Code(s): E11.65 - Type 2 diabetes mellitus with hyperglycemia Plan to address problem: Blood sugar management by primary attending Subjective Date of service: 06/17/20 Principal diagnosis: Ac hypoxemic resp failure; COVID-19; pneumonia; CHF; Pulm HTN; OHS; DM II Interval history: SARS Corovirus 2 positive status. Patient was not examined at the bedside today due to Personal protective equipment conservation due the COVID-19 pandemic and also to decrease exposure of Child Adolescent Psychiatrist. Reviewed clinical data, nurses notes, and Physician notes. Defer Physical examination to the Primary Attending MD. no events overnight Objective - Exam Narrative Exam: Patient was not examined today due to PPE conservation given the COVID-19 pandemic. Middle-aged female lying in bed - Vital Signs Vital signs: Vital Signs - 12hr 06/17/20 06/17/20 06/17/20 06:00 06:23 07:00 Temperature Pulse Rate 75 75 72 Pulse Rate [ From Monitor] Respiratory 19 15 Rate Blood Pressure 161/65 161/65 171/71 O2 Sat by Pulse 100 100 Oximetry 06/17/20 06/17/20 06/17/20 08:00 09:00 09:38 Temperature 97.9 F Pulse Rate 72 68 Pulse Rate [ 73 From Monitor] Respiratory 15 15 Rate Blood Pressure 171/78 165/65 165/85 O2 Sat by Pulse 100 100 Oximetry 06/17/20 06/17/20 06/17/20 09:39 10:00 11:00 Temperature Pulse Rate 72 73 Pulse Rate [ From Monitor] Respiratory 20 19 Rate Blood Pressure 165/85 174/60 185/78 O2 Sat by Pulse 100 100 Oximetry 06/17/20 06/17/20 06/17/20 11:55 12:00 13:00 Temperature 98.4 F Pulse Rate 71 75 Pulse Rate [ 76 From Monitor] Respiratory 19 17 Rate Blood Pressure 169/73 176/75 O2 Sat by Pulse 100 100 Oximetry 06/17/20 06/17/20 06/17/20 13:29 13:30 14:00 Temperature Pulse Rate 77 Pulse Rate [ From Monitor] Respiratory 15 Rate Blood Pressure 176/75 176/75 171/66 O2 Sat by Pulse 95 Oximetry 06/17/20 06/17/20 15:00 16:00 Temperature 97.9 F Pulse Rate 71 75 Pulse Rate [ 75 From Monitor] Respiratory 25 H 18 Rate Blood Pressure 172/75 161/62 O2 Sat by Pulse 100 100 Oximetry - Lab 06/15/20 04:24 06/16/20 09:15 Most recent lab results ABG pH 7.409 pH Units (7.350-7.450) 06/12/20 09:20 ABG pCO2 42.0 mm Hg 06/12/20 09:20 ABG pO2 91.1 mm Hg (80.0-90.0) H 06/12/20 09:20 ABG HCO3 25.9 mmol/L (20.0-26.0) 06/12/20 09:20 ABG O2 Saturation 97.0 % (95.0-99.0) 06/12/20 09:20 Calcium 9.0 mg/dL (8.4-10.2) 06/16/20 09:15 Urine Creatinine 82.2 mg/dL (0.1-20.0) H 06/06/20 04:00 Urine Sodium 20 mmol/L 06/06/20 04:00 Urine Total Protein 196 mg/dL (5-11.8) H 06/06/20 04:00 Medications & Allergies - Medications Allergies/Adverse Reactions: Allergies No Known Allergies Allergy (Verified 01/21/20 12:28) Home Medications: Home Medications Medication Instructions Recorded Confirmed Last Taken Type AtorvaSTATin [Lipitor] 20 mg PO QHS 05/12/20 05/29/20 Unknown History lisinopriL [Zestril TAB] 40 mg PO QDAY 05/12/20 05/29/20 Unknown History metFORMIN [Glucophage] 850 mg PO BID 05/12/20 05/29/20 Unknown History Acetaminophen [Acetaminophen TAB] 650 mg PO Q4H PRN tablet 05/13/20 05/29/20 Unknown Rx Dicyclomine [Bentyl] 20 mg PO BID #20 tablet 05/13/20 05/29/20 Unknown Rx Famotidine [Pepcid] 20 mg PO BID #30 tablet 05/13/20 05/29/20 Unknown Rx carvediloL [Coreg] 6.25 mg PO BID #60 05/13/20 05/29/20 Unknown Rx Active Medications: Generic Name Dose Route Start Last Admin Trade Name Freq PRN Reason Stop Dose Admin Acetaminophen 650 mg 06/09/20 10:57 06/09/20 20:28 Tylenol FEEDTUBE 650 mg Q6H PRN Administration Fever >101 Amlodipine Besylate 10 mg 06/02/20 11:00 06/17/20 09:39 Amlodipine PO 10 mg DAILY NELSON Administration Lipase/Protease/Amylase 1 each 05/29/20 13:39 Pancremu Lawson 10,500 Unit FEEDTUBE PRN PRN For Clogged Feeding Tube Carvedilol 12.5 mg 06/03/20 10:00 06/17/20 09:38 Coreg PO 12.5 mg BID NELSON Administration Clonidine HCl 0.1 mg 06/04/20 06:00 06/17/20 13:30 Catapres PO 0.1 mg Q8HR NELSON Administration Clonidine HCl 0.2 mg 06/04/20 06:00 06/17/20 13:30 Catapres PO 0.2 mg Q8HR NELSON Administration Glycopyrrolate 2 mg 06/09/20 14:00 06/17/20 13:27 Glycopyrrolate PO 2 mg TID NELSON Administration Hydralazine HCl 50 mg 06/03/20 09:00 06/17/20 13:29 Apresoline PO 50 mg Q8HR NELSON Administration Hydrophilic Ointment 1 applic 05/28/20 13:49 Vaseline Lip Therapy TP Q2HR PRN Dry Lips Heparin Sodium/Sodium Chloride 25,000 unit in 500 mls @ 30 mls/hr 05/29/20 15:00 06/17/20 17:42 Heparin/ 0.45% Nacl-25,000 Unit/500 Ml IV 1,600 units/hr TITR NELSON 32 mls/hr Titration Protocol 1,500 UNITS/HR Cefepime HCl 2 gm in 100 mls @ 200 mls/hr 06/11/20 10:00 06/17/20 09:37 Cefepime/Ns 2 Gm/100 Ml IV 06/18/20 12:00 200 mls/hr Q12HR NELSON Administration Protocol Insulin Glargine 10 units 06/08/20 22:00 06/16/20 21:26 Lantus SUB-Q 10 units QHS NELSON Administration Insulin Human Lispro 0 unit 05/29/20 18:00 06/17/20 11:39 Humalog SUB-Q 3 unit Q6H NELOSN Administration Protocol Labetalol HCl 20 mg 06/03/20 09:00 06/08/20 23:51 Labetalol IV 20 mg Q4H PRN Administration HYPERTENSION Lansoprazole 30 mg 06/05/20 22:00 06/17/20 09:39 Prevacid Solutab FEEDTUBE 30 mg BID NELSON Administration Levetiracetam 500 mg 06/16/20 11:00 06/17/20 09:38 Keppra PO 500 mg BID NELSON Administration Metoclopramide HCl 10 mg 06/10/20 20:00 06/17/20 14:32 Reglan IV 10 mg Q6H NELSON Administration Multi-Ingred Cream/Lotion/Oil/Oint 1 applic 05/28/20 13:49 Artificial Tears Ophth Oint OU Q4HR PRN Dry Eye(s) Ondansetron HCl 4 mg 06/02/20 09:00 06/09/20 16:48 Zofran IV 4 mg Q8H PRN Administration Nausea And Vomiting Quetiapine Fumarate 50 mg 06/14/20 22:00 06/16/20 21:27 Seroquel PO 50 mg QHS NELSON Administration Scopolamine 1 each 06/05/20 14:00 06/17/20 09:39 Transderm-Scop TD 1 each Q3D NELSON Administration Senna 17.6 mg 06/03/20 10:00 06/17/20 09:38 Senokot FEEDTUBE 17.6 mg BID NELSON Administration Simple Syrup 15 ml 05/29/20 13:39 Simple Syrup FEEDTUBE PRN PRN Hypoglycemia Simple Syrup 30 ml 05/29/20 13:39 Simple Syrup FEEDTUBE PRN PRN Hypoglycemia Sodium Bicarbonate 325 mg 05/29/20 13:39 Sodium Bicarbonate FEEDTUBE PRN PRN For Clogged Feeding Tube Sodium Bicarbonate 650 mg 06/06/20 10:00 06/17/20 09:39 Sodium Bicarbonate PO 650 mg BID NELSON Administration Sodium Chloride 10 ml 05/28/20 22:00 06/17/20 09:40 Sodium Chloride Flush Syringe 10 Ml IV 10 ml BID NELSON Administration Sodium Chloride 10 ml 05/28/20 19:08 06/16/20 17:50 Sodium Chloride Flush Syringe 10 Ml IV 10 ml PRN PRN Administration LINE FLUSH
[2020-06-17] MEDS: QUEtiapine 25 MG TAB PO SCH (22:29)
[2020-06-17] MEDS: INSULIN GLARGINE 100 UNITS/ML SUB-Q SCH (22:30)
[2020-06-18] MEDS: INSULIN LISPRO 100 UNIT/ML VIAL 3 mL SUB-Q SCH ×4 (00:36→19:48)
[2020-06-18] MEDS: METOCLOPRAMIDE 10 MG/2 ML INJ IV SCH ×4 (03:07→23:08)
[2020-06-18] MEDS: HEPARIN/ 0.45% NACL DRIP 25,000 UNIT/500 ML BAG IV SCH ×2 (03:40→20:22)
[2020-06-18 05:53] LABS: Calcium 9.3 mg/dL (8.4-10.2)
[2020-06-18] MEDS: cloNIDine 0.1 MG TAB PO SCH ×2 (06:20→13:51)
[2020-06-18] MEDS: cloNIDine 0.2 MG TAB PO SCH ×3 (06:21→23:08)
[2020-06-18] MEDS: hydrALAZINE 25 MG TAB PO SCH ×3 (06:21→23:08)
--- NOTE | 2020-06-18 08:08 | Progress Note ---
Assessment and Plan Assessment and plan: --COVID-19 positive 05/28/2020 -- Acute hypoxemic respiratory failure From COVID-19 viral infection extubated on , on high flow o2 -- s/p PEA Cardiac arrest Cardiology team on board Conservative management as per cardiology -- Acute metabolic encephalopathy, POA likely from sepsis and s/p cardiac arrest with possible anoxic injury -- Acute renal failure likely ATN Cr slowly improving Avoid ACEI and other nephrotoxic medications Nephrology following -- Coronavirus infection with b/l PNA Completed remdesivir on 06/02 Continue dexamethasone - Last dose 06/07 ID recs appreciated. Maintained on ventilator --Klebsiella pneumonia: Continue to treat with cefepime ID following --CHF (congestive heart failure) Cardiology following. Ef 45% -- Coffee ground emesis -Stress ulcers Possible stress ulcers On PPI H/H remains stable GI evaluation if Hb drops again -- Hypertension Continue amlodipine, coreg, clonidine and hydralazine Monitor BP --Mild LFT elevation: likely from COVID-19. -- DVT prophylaxis SCD to bilateral lower extremities while in bed Heparin -- Advance care planning Patient is full code. poor prognosis Patient is critically ill with multiple medical problems Poor prognosis Patient may be transferred out of [facility] to [facility] Plan of care reviewed with the patient and his nurse History Interval history: I have seen and examined the patient at the bedside in [facility] this morning Isolation precautions and PPE protocols followed Patient is critically ill on high flow oxygen In mild distress Vital signs noted Hospitalist Physical - Constitutional Vitals: Temp Pulse Resp BP Pulse Ox 98.2 F 77 17 161/68 99 06/18/20 07:57 06/18/20 06:00 06/18/20 06:00 06/18/20 06:21 06/18/20 06:00 General appearance: Present: mild distress, well-nourished, obese (Morbidly obese), other (On high flow oxygen) - EENT Eyes: Present: PERRL, EOM intact - Neck Neck: Present: supple, normal ROM - Respiratory Respiratory effort: normal Respiratory: bilateral: diminished, rhonchi, negative: rales, wheezing - Cardiovascular Rhythm: regular Heart Sounds: Present: S1 & S2 - Extremities Extremities: no ischemia Extremity abnormal: edema - Abdominal General gastrointestinal: soft, non-tender, non-distended, normal bowel sounds - Integumentary Integumentary: Present: clear, warm - Psychiatric Psychiatric: appropriate mood/affect, cooperative - Neurologic Neurologic: moves all extremities Results - Labs CBC & Chem 7: 06/15/20 04:24 06/18/20 04:42 Labs: Laboratory Last Values WBC 8.8 K/mm3 (4.5-11.0) 06/15/20 04:24 RBC 2.75 M/mm3 (3.65-5.03) L 06/15/20 04:24 Hgb 7.9 gm/dl (10.1-14.3) L 06/15/20 04:24 Hct 24.0 % (30.3-42.9) L 06/15/20 04:24 MCV 87 fl (79-97) 06/15/20 04:24 MCH 29 pg (28-32) 06/15/20 04:24 MCHC 33 % (30-34) 06/15/20 04:24 RDW 16.4 % (13.2-15.2) H 06/15/20 04:24 Plt Count 203 K/mm3 (140-440) 06/15/20 04:24 Lymph % (Auto) 12.9 % (13.4-35.0) L 06/15/20 04:24 Jay % (Auto) 8.7 % (0.0-7.3) H 06/15/20 04:24 Eos % (Auto) 4.6 % (0.0-4.3) H 06/15/20 04:24 Baso % (Auto) 0.6 % (0.0-1.8) 06/15/20 04:24 Lymph # 1.1 K/mm3 (1.2-5.4) L 06/15/20 04:24 Jay # 0.8 K/mm3 (0.0-0.8) 06/15/20 04:24 Eos # 0.4 K/mm3 (0.0-0.4) 06/15/20 04:24 Baso # 0.1 K/mm3 (0.0-0.1) 06/15/20 04:24 Add Manual Diff Complete 06/09/20 05:16 Total Counted 100 06/09/20 05:16 Seg Neutrophils % 73.2 % (40.0-70.0) H 06/15/20 04:24 Seg Neuts % (Manual) 85.0 % (40.0-70.0) H 06/09/20 05:16 Band Neutrophils % 0 % 06/09/20 05:16 Lymphocytes % (Manual) 7.0 % (13.4-35.0) L 06/09/20 05:16 Reactive Lymphs % (Man) 0 % 06/09/20 05:16 Monocytes % (Manual) 7.0 % (0.0-7.3) 06/09/20 05:16 Eosinophils % (Manual) 1.0 % (0.0-4.3) 06/09/20 05:16 Basophils % (Manual) 0 % (0.0-1.8) 06/09/20 05:16 Metamyelocytes % 0 % 06/09/20 05:16 Myelocytes % 0 % 06/09/20 05:16 Promyelocytes % 0 % 06/09/20 05:16 Blast Cells % 0 % 06/09/20 05:16 Nucleated RBC % Not Reportable 06/09/20 05:16 Seg Neutrophils # 6.4 K/mm3 (1.8-7.7) 06/15/20 04:24 Seg Neutrophils # Man 16.2 K/mm3 (1.8-7.7) H 06/09/20 05:16 Band Neutrophils # 0.0 K/mm3 06/09/20 05:16 Lymphocytes # (Manual) 1.3 K/mm3 (1.2-5.4) 06/09/20 05:16 Abs React Lymphs (Man) 0.0 K/mm3 06/09/20 05:16 Monocytes # (Manual) 1.3 K/mm3 (0.0-0.8) H 06/09/20 05:16 Eosinophils # (Manual) 0.2 K/mm3 (0.0-0.4) 06/09/20 05:16 Basophils # (Manual) 0.0 K/mm3 (0.0-0.1) 06/09/20 05:16 Metamyelocytes # 0.0 K/mm3 06/09/20 05:16 Myelocytes # 0.0 K/mm3 06/09/20 05:16 Promyelocytes # 0.0 K/mm3 06/09/20 05:16 Blast Cells # 0.0 K/mm3 06/09/20 05:16 WBC Morphology Not Reportable 06/09/20 05:16 Hypersegmented Neuts Not Reportable 06/09/20 05:16 Hyposegmented Neuts Not Reportable 06/09/20 05:16 Hypogranular Neuts Not Reportable 06/09/20 05:16 Smudge Cells Not Reportable 06/09/20 05:16 Toxic Granulation Not Reportable 06/09/20 05:16 Toxic Vacuolation Not Reportable 06/09/20 05:16 Dohle Bodies Not Reportable 06/09/20 05:16 Pelger-Huet Anomaly Not Reportable 06/09/20 05:16 Sanjuanita Rods Not Reportable 06/09/20 05:16 Platelet Estimate Consistent w auto 06/09/20 05:16 Clumped Platelets Not Reportable 06/09/20 05:16 Plt Clumps, EDTA Not Reportable 06/09/20 05:16 Large Platelets Not Reportable 06/09/20 05:16 Giant Platelets Not Reportable 06/09/20 05:16 Platelet Satelliting Not Reportable 06/09/20 05:16 Plt Morphology Comment Not Reportable 06/09/20 05:16 RBC Morphology Not Reportable 06/09/20 05:16 Dimorphic RBCs Not Reportable 06/09/20 05:16 Polychromasia Rare 06/09/20 05:16 Hypochromasia Few 06/09/20 05:16 Poikilocytosis Not Reportable 06/09/20 05:16 Anisocytosis Few 06/09/20 05:16 Microcytosis Not Reportable 06/09/20 05:16 Macrocytosis Not Reportable 06/09/20 05:16 Spherocytes Not Reportable 06/09/20 05:16 Pappenheimer Bodies Not Reportable 06/09/20 05:16 Sickle Cells Not Reportable 06/09/20 05:16 Target Cells Not Reportable 06/09/20 05:16 Tear Drop Cells Not Reportable 06/09/20 05:16 Ovalocytes Not Reportable 06/09/20 05:16 Helmet Cells Not Reportable 06/09/20 05:16 Jones-Merom Bodies Not Reportable 06/09/20 05:16 [place] Rings Not Reportable 06/09/20 05:16 Julia Cells Not Reportable 06/09/20 05:16 Bite Cells Not Reportable 06/09/20 05:16 Crenated Cell Not Reportable 06/09/20 05:16 Elliptocytes Not Reportable 06/09/20 05:16 Acanthocytes (Spur) Not Reportable 06/09/20 05:16 Rouleaux Not Reportable 06/09/20 05:16 Hemoglobin C Crystals Not Reportable 06/09/20 05:16 Schistocytes Not Reportable 06/09/20 05:16 Malaria parasites Not Reportable 06/09/20 05:16 Kev Bodies Not Reportable 06/09/20 05:16 Hem Pathologist Commnt No 06/09/20 05:16 PT 14.2 Sec. (12.2-14.9) 05/29/20 15:10 INR 1.08 (0.87-1.13) 05/29/20 15:10 APTT 27.2 Sec. (24.2-36.6) 05/29/20 15:10 D-Dimer 414.52 ng/mlDDU (0-234) H 06/04/20 04:19 Heparin Anti-Xa Level 0.71 U.I./ml (0.3-0.7) H 06/17/20 23:16 ABG pH 7.409 pH Units (7.350-7.450) 06/12/20 09:20 POC ABG pCO2 37.4 mmHg (32.0-48.0) 06/11/20 11:11 ABG pCO2 42.0 mm Hg 06/12/20 09:20 POC ABG pO2 101.9 mmHg (83-108) 06/11/20 11:11 ABG pO2 91.1 mm Hg (80.0-90.0) H 06/12/20 09:20 ABG HCO3 25.9 mmol/L (20.0-26.0) 06/12/20 09:20 ABG O2 Saturation 97.0 % (95.0-99.0) 06/12/20 09:20 ABG O2 Content 19.9 (0.0-44) 06/12/20 09:20 ABG Base Excess 1.1 mmol/L (-2.0-3.0) 06/12/20 09:20 ABG Hemoglobin 14.9 gm/dl (12.0-16.0) 06/12/20 09:20 ABG Carboxyhemoglobin 1.5 % (0.0-5.0) 06/12/20 09:20 ABG Methemoglobin 0.7 % (0.0-1.5) 06/12/20 09:20 VBG pH 7.152 (7.320-7.420) L* 05/28/20 13:47 Oxyhemoglobin 94.8 % (95.0-99.0) L 06/12/20 09:20 FiO2 40 % 06/12/20 09:20 Sodium 142 mmol/L (137-145) 06/18/20 04:42 Potassium 3.9 mmol/L (3.6-5.0) 06/18/20 04:42 Chloride 104.1 mmol/L (98-107) 06/18/20 04:42 Carbon Dioxide 26 mmol/L (22-30) 06/18/20 04:42 Anion Gap 16 mmol/L 06/18/20 04:42 BUN 44 mg/dL (7-17) H 06/18/20 04:42 Creatinine 1.1 mg/dL (0.6-1.2) 06/18/20 04:42 Estimated GFR 50 ml/min 06/18/20 04:42 BUN/Creatinine Ratio 40 % 06/18/20 04:42 Glucose 115 mg/dL (65-100) H 06/18/20 04:42 POC Glucose 171 (70-105) H 06/18/20 05:52 Lactic Acid 1.90 mmol/L (0.7-2.0) 05/28/20 14:46 Calcium 9.3 mg/dL (8.4-10.2) 06/18/20 04:42 Ferritin 100.7 ng/mL (10.0-200.0) 06/04/20 04:19 Total Bilirubin 0.20 mg/dL (0.1-1.2) 06/09/20 05:16 AST 16 units/L (5-40) 06/09/20 05:16 ALT 14 units/L (7-56) 06/09/20 05:16 Alkaline Phosphatase < 5 units/L (35-129) L 06/09/20 05:16 Lactate Dehydrogenase 271 units/L (91-180) H 06/04/20 04:19 Total Creatine Kinase 301 units/L (30-135) H 05/28/20 13:47 CK-MB (CK-2) 4.3 ng/mL (0.0-4.0) H 05/28/20 13:47 CK-MB (CK-2) Rel Index 1.4 (0-4) 05/28/20 13:47 C-Reactive Protein 2.20 mg/dL (0.00-1.30) H 06/04/20 04:19 Total Protein 4.6 g/dL (6.3-8.2) L 06/09/20 05:16 Albumin < 0.2 g/dL (3.9-5) L 06/09/20 05:16 Albumin/Globulin Ratio 1.0 % 06/09/20 05:16 Procalcitonin 0.46 ng/mL (<0.15) 06/10/20 05:49 Urine Color Yellow (Yellow) 06/06/20 04:00 Urine Turbidity Cloudy (Clear) 06/06/20 04:00 Urine pH 5.0 (5.0-7.0) 06/06/20 04:00 Ur Specific [place] 1.012 (1.003-1.030) 06/06/20 04:00 Urine Protein 100 mg/dl mg/dL (Negative) 06/06/20 04:00 Urine Glucose (UA) 50 mg/dL (Negative) 06/06/20 04:00 Urine Ketones Neg mg/dL (Negative) 06/06/20 04:00 Urine Blood Sm (Negative) 06/06/20 04:00 Urine Nitrite Neg (Negative) 06/06/20 04:00 Urine Bilirubin Neg (Negative) 06/06/20 04:00 Urine Urobilinogen < 2.0 mg/dL (<2.0) 06/06/20 04:00 Ur Leukocyte Esterase Neg (Negative) 06/06/20 04:00 Urine WBC (Auto) 15.0 /HPF (0.0-6.0) H 06/06/20 04:00 Urine RBC (Auto) 23.0 /HPF (0.0-6.0) 06/06/20 04:00 U Epithel Cells (Auto) 8.0 /HPF (0-13.0) 06/06/20 04:00 Urine Bacteria (Auto) 2+ /HPF (Negative) 06/06/20 04:00 Amorphous Crystals 1+ 06/06/20 04:00 Hyaline Casts 16 /LPF 06/06/20 04:00 Urine Mucus 2+ /HPF 06/06/20 04:00 Urine Yeast (Budding) 2+ /HPF 06/03/20 Unknown Urine Creatinine 82.2 mg/dL (0.1-20.0) H 06/06/20 04:00 Urine Sodium 20 mmol/L 06/06/20 04:00 Urine Total Protein 196 mg/dL (5-11.8) H 06/06/20 04:00 Coronavirus (PCR) Positive (Negative) A 05/28/20 Unknown - Diagnostic Impressions Diagnostic Impressions: Echocardiogram Limited Views 05/29/20 13:52 Transthoracic Echocardiogram Indication: Pulm Embolus BP: 169/76 HR: 85 Conclusions *Limited study for RV size post cardiopulmonar arrest. *RV is only slightly dilated, no significant difference from prior echo 05/13/2020. *Global left ventricular systolic function is at the lower limits of normal. *The estimated ejection fraction is 45-50%. *Mild to moderate concentric left ventricular hypertrophy is observed. *The left and right atria are both mild to moderately dilated. Findings Left Ventricle: The left ventricular chamber size is mildly dilated. Mild to moderate concentric left ventricular hypertrophy is observed. Global left ventricular systolic function is at the lower limits of normal. The estimated ejection fraction is 45-50%. Left Atrium: The left atrium is mild to moderately dilated. Right Ventricle: The right ventricle is slightly dilated. Right Atrium: The right atrium is mild to moderately dilated. Aortic Valve: The aortic valve leaflets are moderately thickened. Mitral Valve: There is mitral annular calcification. The mitral valve leaflets are moderately thickened. Tricuspid Valve: The tricuspid valve leaflets are mildly thickened. Pericardium: A trivial pericardial effusion is visualized. NDUM: 05/29/20 1808 Amended Report Transthoracic Echocardiogram Indication: Pulm Embolus BP: 169/76 HR: 85 Conclusions *Limited study for RV size post cardiopulmonary arrest. *RV is only slightly dilated, no significant difference from prior echo 05/13/2020. *Global left ventricular systolic function is at the lower limits of normal. *The estimated ejection fraction is 45-50%. *Mild to moderate concentric left ventricular hypertrophy is observed. *The left and right atria are both mild to moderately dilated. Findings Left Ventricle: The left ventricular chamber size is mildly dilated. Mild to moderate concentric left ventricular hypertrophy is observed. Global left ventricular systolic function is at the lower limits of normal. The estimated ejection fraction is 45-50%. Left Atrium: The left atrium is mild to moderately dilated. Right Ventricle: The right ventricle is slightly dilated. Right Atrium: The right atrium is mild to moderately dilated. Aortic Valve: The aortic valve leaflets are moderately thickened. Mitral Valve: There is mitral annular calcification. The mitral valve leaflets are moderately thickened. Tricuspid Valve: The tricuspid valve leaflets are mildly thickened. Pericardium: A trivial pericardial effusion is visualized. Helm/IV: Voiding Method External Female Catheter IV Catheter Type [Right Hand] Peripheral IV IV Catheter Type [Right Wrist] Not found on patient IV Catheter Type [Left Hand] INT / Saline Lock IV Catheter Type [Left INT / Saline Lock Antecubital] IV Catheter Type [Right Peripheral IV Forearm] IV Catheter Type [Left Leg] Intra-osseous Active Medications - Current Medications Current Medications: Generic Name Dose Route Start Last Admin Trade Name Freq PRN Reason Stop Dose Admin Acetaminophen 650 mg 06/09/20 10:57 06/09/20 20:28 Tylenol FEEDTUBE 650 mg Q6H PRN Administration Fever >101 Amlodipine Besylate 10 mg 06/02/20 11:00 06/17/20 09:39 Amlodipine PO 10 mg DAILY NELSON Administration Lipase/Protease/Amylase 1 each 05/29/20 13:[address] 10,500 Unit FEEDTUBE PRN PRN For Clogged Feeding Tube Carvedilol 12.5 mg 06/03/20 10:00 06/17/20 22:29 Coreg PO 12.5 mg BID NELSON Administration Clonidine HCl 0.1 mg 06/04/20 06:00 06/18/20 06:20 Catapres PO 0.1 mg Q8HR NELSON Administration Clonidine HCl 0.2 mg 06/04/20 06:00 06/18/20 06:21 Catapres PO 0.2 mg Q8HR NELSON Administration Glycopyrrolate 2 mg 06/09/20 14:00 06/17/20 20:13 Glycopyrrolate PO 2 mg TID NELSON Administration Hydralazine HCl 50 mg 06/03/20 09:00 06/18/20 06:21 Apresoline PO 50 mg Q8HR NELSON Administration Hydrophilic Ointment 1 applic 05/28/20 13:49 Vaseline Lip Therapy TP Q2HR PRN Dry Lips Heparin Sodium/Sodium Chloride 25,000 unit in 500 mls @ 30 mls/hr 05/29/20 15:00 06/18/20 03:40 Heparin/ 0.45% Nacl-25,000 Unit/500 Ml IV 1,500 units/hr TITR NELSON 30 mls/hr Administration Protocol 1,500 UNITS/HR Cefepime HCl 2 gm in 100 mls @ 200 mls/hr 06/11/20 10:00 06/18/20 00:35 Cefepime/Ns 2 Gm/100 Ml IV 06/18/20 12:00 Infused Q12HR NELSON Infusion Protocol Insulin Glargine 10 units 06/08/20 22:00 06/17/20 22:30 Lantus SUB-Q 10 units QHS NELSON Administration Insulin Human Lispro 0 unit 05/29/20 18:00 06/18/20 06:21 Humalog SUB-Q 3 unit Q6H NELSON Administration Protocol Labetalol HCl 20 mg 06/03/20 09:00 06/08/20 23:51 Labetalol IV 20 mg Q4H PRN Administration HYPERTENSION Lansoprazole 30 mg 06/05/20 22:00 06/17/20 22:28 Prevacid Solutab FEEDTUBE 30 mg BID NELSON Administration Levetiracetam 500 mg 06/16/20 11:00 06/17/20 22:29 Keppra PO 500 mg BID NELSON Administration Metoclopramide HCl 10 mg 06/10/20 20:00 06/18/20 03:07 Reglan IV 10 mg Q6H NELSON Administration Multi-Ingred Cream/Lotion/Oil/Oint 1 applic 05/28/20 13:49 Artificial Tears Ophth Oint OU Q4HR PRN Dry Eye(s) Ondansetron HCl 4 mg 06/02/20 09:00 06/09/20 16:48 Zofran IV 4 mg Q8H PRN Administration Nausea And Vomiting Quetiapine Fumarate 50 mg 06/14/20 22:00 06/17/20 22:29 Seroquel PO 50 mg QHS NELSON Administration Scopolamine 1 each 06/05/20 14:00 06/17/20 09:39 Transderm-Scop TD 1 each Q3D NELSON Administration Senna 17.6 mg 06/03/20 10:00 06/17/20 22:28 Senokot FEEDTUBE 17.6 mg BID NELSON Administration Simple Syrup 15 ml 05/29/20 13:39 Simple Syrup FEEDTUBE PRN PRN Hypoglycemia Simple Syrup 30 ml 05/29/20 13:39 Simple Syrup FEEDTUBE PRN PRN Hypoglycemia Sodium Bicarbonate 325 mg 05/29/20 13:39 Sodium Bicarbonate FEEDTUBE PRN PRN For Clogged Feeding Tube Sodium Bicarbonate 650 mg 06/06/20 10:00 06/17/20 22:29 Sodium Bicarbonate PO 650 mg BID NELSON Administration Sodium Chloride 10 ml 05/28/20 22:00 06/17/20 22:00 Sodium Chloride Flush Syringe 10 Ml IV Not Given BID NELSON Sodium Chloride 10 ml 05/28/20 19:08 06/16/20 17:50 Sodium Chloride Flush Syringe 10 Ml IV 10 ml PRN PRN Administration LINE FLUSH Nutrition/Malnutrition Assess - Dietary Evaluation Nutrition/Malnutrition Findings: Nutrition Notes Start: 05/29/20 11:45 Freq: Status: Active Protocol: Document 06/15/20 09:54 LP (Rec: 06/15/20 09:56 LP [id number]) Nutrition Notes Need for Assessment generated from: MD Order Initial or Follow up Brief Note Subjective/Other Information Consult for TF. changed flush. Nutrition Intervention Nutrition Support: Continue Nepro at 40ml/hr 200ml q4h per MD Kcal 1,728 Protein (gm) 78 Fluid (mL) 698 Follow-Up By: 06/17/20 Additional Comments Follow for TF tolerance and Na
[2020-06-18] MEDS: GLYCOPYRROLATE 2 MG TAB PO SCH ×3 (08:39→23:06)
[2020-06-18] MEDS: amLODIPine 10 MG TAB PO SCH (09:53)
[2020-06-18] MEDS: SODIUM BICARBONATE 650 MG TAB PO SCH ×2 (09:54→23:08)
[2020-06-18] MEDS: carvediloL 12.5 MG TAB PO SCH ×2 (09:54→23:09)
[2020-06-18] MEDS: SENNOSIDES ORAL LIQD 8.8 MG/5 ML ORAL LIQD FEEDTUBE SCH ×2 (09:55→23:09)
[2020-06-18] MEDS: levETIRAcetam 500 MG/5 ML ORAL LIQD PO SCH ×2 (09:57→23:08)
[2020-06-18] MEDS: LANSOPRAZOLE 30 MG SOLUTAB FEEDTUBE SCH ×2 (09:57→23:09)
[2020-06-18] MEDS: CEFEPIME/NS 2 GM/100 ML 2 GM/100 ML BAG IV SCH (09:57)
--- NOTE | 2020-06-18 12:21 | Progress Note ---
Assessment and Plan Acute hypoxemic respiratory failure on MVS Coronavirus-19 infection. Bilateral pulmonary infiltrates, bilateral pneumonia plus likely element of Pulmonary edema. Bilateral pulmonary edema. Bilateral pleural effusions. History of congestive heart failure. Morbid obesity. History of pulmonary hypertension. History of hypertension. Diabetes. Obesity hypoventilation syndrome. Elevated serum inflammatory markers to include D-dimers and LDH levels. Hyperkalemia at presentation. Metabolic acidosis. Oropharyngeal dysphagia. - copmntinue BIPAP scheduled qhs with prn daytime use - advance diet per [employer] team - continue Reglan with slow taper - continue Robinul and scopolamine for secretions control - continue care as below otherwise; - continue COVID-19 isolation per protocol - strict I's and O's - continue to wean supplemental oxygen for target O2 sat's > 90% acutely - continue aspiration precautions - continue lung protective strategies - continue bronchodilators with pulmonary hygiene per RT - wean per pulmonary driven protocols otherwise - continue accuchecks with glycemic control per SSI for target BG <180 mg/dL; avoid hypoglycemia - continue to avoid benzodiazepine's, reduce the possibility of delirium - azotemia per nephrology - continue to avoid nephrotoxins and renally dose all medications - completed AB's per ID rec's - prn analgesia per pain score - Maintenance of sleep-wake cycle, avoid delirium - continue enteral nutritional support at goal rate as tolerated - G.I. & VTE prophylaxis - PT/OT/ROM exercises - continue mobility protocols for pressure ulcer prophylaxis - Monitor hemodynamics closely - continue other care per attending / other consultants - discharge planning ongoing concurrently - OK to transfer to medical floor .... Re-evaluate in am & prn Subjective Date of service: 06/18/20 Principal diagnosis: Ac hypoxemic resp failure; COVID-19; pneumonia; CHF; Pulm HTN; OHS; DM II Interval history: Patient is seen today for: Ac hypoxemic resp failure; Coronavirus-19 infection; pneumonia; Pulmonary edema; Bilateral pleural effusions; CHF; Morbid obesity; pulmonary hypertension; OHS; DM II Seen and examined at bedside; 24hour events reviewed; nursing and respiratory care staff consulted; no adverse overnight events reported to me; resting peacefully in bed; FiO2 down to 32%; responds appropriately; on HFNC via vapotherm system at 20L flow; No N/V/F/C; she denies chest or other pain Objective Vital Signs - 12hr 06/18/20 06/18/20 06/18/20 01:00 02:00 03:00 Temperature Pulse Rate 84 77 77 Pulse Rate [ From Monitor] Respiratory 15 14 18 Rate Blood Pressure 159/71 157/66 154/61 O2 Sat by Pulse 99 99 99 Oximetry 06/18/20 06/18/20 06/18/20 04:00 05:00 06:00 Temperature 98.9 F Pulse Rate 73 71 77 Pulse Rate [ 86 From Monitor] Respiratory 18 17 17 Rate Blood Pressure 158/65 165/66 161/68 O2 Sat by Pulse 100 99 99 Oximetry 06/18/20 06/18/20 06/18/20 06:20 06:21 07:00 Temperature Pulse Rate 71 Pulse Rate [ From Monitor] Respiratory 18 Rate Blood Pressure 161/68 161/68 133/51 O2 Sat by Pulse Oximetry 06/18/20 06/18/20 06/18/20 07:57 08:00 08:08 Temperature 98.2 F Pulse Rate 65 Pulse Rate [ 67 From Monitor] Respiratory 11 L Rate Blood Pressure 123/51 O2 Sat by Pulse 99 100 Oximetry 06/18/20 06/18/20 06/18/20 09:00 09:53 09:54 Temperature Pulse Rate 72 72 72 Pulse Rate [ From Monitor] Respiratory 20 Rate Blood Pressure 126/53 126/53 126/53 O2 Sat by Pulse 98 Oximetry 06/18/20 06/18/20 10:00 11:45 Temperature 98.5 F Pulse Rate 70 Pulse Rate [ From Monitor] Respiratory 20 Rate Blood Pressure 136/58 O2 Sat by Pulse 98 Oximetry Constitutional: no acute distress, other (elderly looking obese female on PSV ) Eyes: non-icteric ENT: oropharynx moist, other (extubated) Neck: supple, no lymphadenopathy, no JVD, other (large neck circumference) Effort: mildly labored Ascultation: Bilateral: diminished breath sounds, rhonchi Percussion: Bilateral: not dull Cardiovascular: regular rate and rhythm, other (S1,S2) Gastrointestinal: normoactive bowel sounds, soft, non-tender, non-distended Integumentary: normal Extremities: no cyanosis, no edema, pink and warm, pulses normal, no ischemia or petechiae Neurologic: normal mental status, non-focal exam (grossly), pupils equal and round, motor strength normal and Psychiatric: mood appropriate, affect normal CBC and BMP: 06/15/20 04:24 06/18/20 04:42 ABG, PT/INR, D-dimer: ABG ABG pH 7.409 pH Units (7.350-7.450) 06/12/20 09:20 POC ABG pCO2 37.4 mmHg (32.0-48.0) 06/11/20 11:11 ABG pCO2 42.0 mm Hg 06/12/20 09:20 POC ABG pO2 101.9 mmHg (83-108) 06/11/20 11:11 ABG pO2 91.1 mm Hg (80.0-90.0) H 06/12/20 09:20 ABG O2 Saturation 97.0 % (95.0-99.0) 06/12/20 09:20 PT/INR, D-dimer PT 14.2 Sec. (12.2-14.9) 05/29/20 15:10 INR 1.08 (0.87-1.13) 05/29/20 15:10 D-Dimer 414.52 ng/mlDDU (0-234) H 06/04/20 04:19 Abnormal lab findings: Abnormal Labs 05/28/20 05/28/20 05/28/20 13:29 13:47 13:47 WBC RBC Hgb Hct RDW 15.3 H Lymph % (Auto) Kidder % (Auto) Eos % (Auto) Lymph # Kidder # Seg Neutrophils % Seg Neuts % (Manual) Lymphocytes % (Manual) Seg Neutrophils # Seg Neutrophils # Man Lymphocytes # (Manual) Monocytes # (Manual) D-Dimer Heparin Anti-Xa Level ABG pH ABG pO2 ABG HCO3 ABG O2 Saturation ABG Base Excess ABG Hemoglobin VBG pH Oxyhemoglobin Sodium Potassium 6.6 H* Chloride 109.2 H Carbon Dioxide 17 L BUN 29 H Creatinine 1.3 H Glucose 265 H POC Glucose 248 H Lactic Acid Calcium 8.1 L AST 63 H Alkaline Phosphatase Lactate Dehydrogenase Total Creatine Kinase 301 H CK-MB (CK-2) 4.3 H C-Reactive Protein Total Protein 5.4 L Albumin 2.6 L Urine WBC (Auto) Urine Creatinine Urine Total Protein Coronavirus (PCR) 05/28/20 05/28/20 05/28/20 13:47 13:47 14:46 WBC RBC Hgb Hct RDW Lymph % (Auto) Kidder % (Auto) Eos % (Auto) Lymph # Kidder # Seg Neutrophils % Seg Neuts % (Manual) Lymphocytes % (Manual) Seg Neutrophils # Seg Neutrophils # Man Lymphocytes # (Manual) Monocytes # (Manual) D-Dimer Heparin Anti-Xa Level ABG pH ABG pO2 ABG HCO3 ABG O2 Saturation ABG Base Excess ABG Hemoglobin VBG pH 7.152 L* Oxyhemoglobin Sodium Potassium 7.2 H* Chloride Carbon Dioxide BUN Creatinine Glucose POC Glucose Lactic Acid 3.40 H* Calcium AST Alkaline Phosphatase Lactate Dehydrogenase Total Creatine Kinase CK-MB (CK-2) C-Reactive Protein Total Protein Albumin Urine WBC (Auto) Urine Creatinine Urine Total Protein Coronavirus (PCR) 05/28/20 05/28/20 05/28/20 15:33 15:33 15:51 WBC RBC Hgb Hct RDW Lymph % (Auto) Kidder % (Auto) Eos % (Auto) Lymph # Kidder # Seg Neutrophils % Seg Neuts % (Manual) Lymphocytes % (Manual) Seg Neutrophils # Seg Neutrophils # Man Lymphocytes # (Manual) Monocytes # (Manual) D-Dimer 8780.43 H Heparin Anti-Xa Level ABG pH 7.284 L ABG pO2 273.0 H ABG HCO3 ABG O2 Saturation 99.4 H ABG Base Excess -6.1 L ABG Hemoglobin 17.2 H VBG pH Oxyhemoglobin Sodium Potassium Chloride Carbon Dioxide BUN Creatinine Glucose 152 H POC Glucose Lactic Acid Calcium AST Alkaline Phosphatase Lactate Dehydrogenase 365 H Total Creatine Kinase CK-MB (CK-2) C-Reactive Protein Total Protein Albumin Urine WBC (Auto) Urine Creatinine Urine Total Protein Coronavirus (PCR) 05/28/20 05/28/20 05/28/20 16:30 20:41 23:20 WBC RBC Hgb Hct RDW Lymph % (Auto) Kidder % (Auto) Eos % (Auto) Lymph # Kidder # Seg Neutrophils % Seg Neuts % (Manual) Lymphocytes % (Manual) Seg Neutrophils # Seg Neutrophils # Man Lymphocytes # (Manual) Monocytes # (Manual) D-Dimer Heparin Anti-Xa Level ABG pH ABG pO2 ABG HCO3 ABG O2 Saturation ABG Base Excess ABG Hemoglobin VBG pH Oxyhemoglobin Sodium Potassium Chloride Carbon Dioxide BUN Creatinine Glucose POC Glucose 225 H 224 H Lactic Acid Calcium AST Alkaline Phosphatase Lactate Dehydrogenase Total Creatine Kinase CK-MB (CK-2) C-Reactive Protein Total Protein Albumin Urine WBC (Auto) 17.0 H Urine Creatinine Urine Total Protein Coronavirus (PCR) 05/28/20 05/29/20 05/29/20 Unknown 04:35 04:43 WBC RBC 3.48 L Hgb 9.8 L Hct 29.4 L RDW 16.0 H Lymph % (Auto) 7.4 L Kidder % (Auto) Eos % (Auto) Lymph # 0.7 L Kidder # Seg Neutrophils % 89.1 H Seg Neuts % (Manual) Lymphocytes % (Manual) Seg Neutrophils # 8.1 H Seg Neutrophils # Man Lymphocytes # (Manual) Monocytes # (Manual) D-Dimer Heparin Anti-Xa Level ABG pH ABG pO2 ABG HCO3 19.3 L ABG O2 Saturation ABG Base Excess -4.5 L ABG Hemoglobin 9.7 L VBG pH Oxyhemoglobin Sodium Potassium Chloride Carbon Dioxide BUN Creatinine Glucose POC Glucose Lactic Acid Calcium AST Alkaline Phosphatase Lactate Dehydrogenase Total Creatine Kinase CK-MB (CK-2) C-Reactive Protein Total Protein Albumin Urine WBC (Auto) Urine Creatinine Urine Total Protein Coronavirus (PCR) Positive A 05/29/20 05/29/20 05/29/20 04:43 15:10 17:17 WBC RBC Hgb 9.3 L Hct 28.7 L RDW Lymph % (Auto) Kidder % (Auto) Eos % (Auto) Lymph # Kidder # Seg Neutrophils % Seg Neuts % (Manual) Lymphocytes % (Manual) Seg Neutrophils # Seg Neutrophils # Man Lymphocytes # (Manual) Monocytes # (Manual) D-Dimer Heparin Anti-Xa Level ABG pH ABG pO2 ABG HCO3 ABG O2 Saturation ABG Base Excess ABG Hemoglobin VBG pH Oxyhemoglobin Sodium Potassium Chloride 110.2 H Carbon Dioxide 18 L BUN 32 H Creatinine 1.4 H Glucose 180 H POC Glucose 147 H Lactic Acid Calcium AST Alkaline Phosphatase Lactate Dehydrogenase Total Creatine Kinase CK-MB (CK-2) C-Reactive Protein Total Protein Albumin Urine WBC (Auto) Urine Creatinine Urine Total Protein Coronavirus (PCR) 05/30/20 05/30/20 05/30/20 00:08 00:12 04:15 WBC RBC Hgb Hct RDW Lymph % (Auto) Kidder % (Auto) Eos % (Auto) Lymph # Kidder # Seg Neutrophils % Seg Neuts % (Manual) Lymphocytes % (Manual) Seg Neutrophils # Seg Neutrophils # Man Lymphocytes # (Manual) Monocytes # (Manual) D-Dimer Heparin Anti-Xa Level 0.71 H ABG pH 7.460 H ABG pO2 106.0 H ABG HCO3 18.9 L ABG O2 Saturation ABG Base Excess -4.4 L ABG Hemoglobin 6.8 L VBG pH Oxyhemoglobin Sodium Potassium Chloride Carbon Dioxide BUN Creatinine Glucose POC Glucose 195 H Lactic Acid Calcium AST Alkaline Phosphatase Lactate Dehydrogenase Total Creatine Kinase CK-MB (CK-2) C-Reactive Protein Total Protein Albumin Urine WBC (Auto) Urine Creatinine Urine Total Protein Coronavirus (PCR) 05/30/20 05/30/20 05/30/20 06:07 08:37 12:33 WBC RBC Hgb Hct RDW Lymph % (Auto) Kidder % (Auto) Eos % (Auto) Lymph # Kidder # Seg Neutrophils % Seg Neuts % (Manual) Lymphocytes % (Manual) Seg Neutrophils # Seg Neutrophils # Man Lymphocytes # (Manual) Monocytes # (Manual) D-Dimer Heparin Anti-Xa Level 0.85 H ABG pH ABG pO2 ABG HCO3 ABG O2 Saturation ABG Base Excess ABG Hemoglobin VBG pH Oxyhemoglobin Sodium Potassium Chloride Carbon Dioxide BUN Creatinine Glucose POC Glucose 182 H 187 H Lactic Acid Calcium AST Alkaline Phosphatase Lactate Dehydrogenase Total Creatine Kinase CK-MB (CK-2) C-Reactive Protein Total Protein Albumin Urine WBC (Auto) Urine Creatinine Urine Total Protein Coronavirus (PCR) 05/30/20 05/30/20 05/30/20 15:58 17:57 23:36 WBC RBC Hgb Hct RDW Lymph % (Auto) Kidder % (Auto) Eos % (Auto) Lymph # Kidder # Seg Neutrophils % Seg Neuts % (Manual) Lymphocytes % (Manual) Seg Neutrophils # Seg Neutrophils # Man Lymphocytes # (Manual) Monocytes # (Manual) D-Dimer Heparin Anti-Xa Level 1.03 H ABG pH ABG pO2 ABG HCO3 ABG O2 Saturation ABG Base Excess ABG Hemoglobin VBG pH Oxyhemoglobin Sodium Potassium Chloride Carbon Dioxide BUN Creatinine Glucose POC Glucose 208 H 185 H Lactic Acid Calcium AST Alkaline Phosphatase Lactate Dehydrogenase Total Creatine Kinase CK-MB (CK-2) C-Reactive Protein Total Protein Albumin Urine WBC (Auto) Urine Creatinine Urine Total Protein Coronavirus (PCR) 05/31/20 05/31/20 05/31/20 02:16 03:55 06:16 WBC RBC Hgb 9.2 L Hct 27.5 L RDW Lymph % (Auto) Kidder % (Auto) Eos % (Auto) Lymph # Kidder # Seg Neutrophils % Seg Neuts % (Manual) Lymphocytes % (Manual) Seg Neutrophils # Seg Neutrophils # Man Lymphocytes # (Manual) Monocytes # (Manual) D-Dimer Heparin Anti-Xa Level ABG pH ABG pO2 94.7 H ABG HCO3 18.6 L ABG O2 Saturation ABG Base Excess -5.5 L ABG Hemoglobin 7.9 L VBG pH Oxyhemoglobin Sodium Potassium Chloride Carbon Dioxide BUN Creatinine Glucose POC Glucose 160 H Lactic Acid Calcium AST Alkaline Phosphatase Lactate Dehydrogenase Total Creatine Kinase CK-MB (CK-2) C-Reactive Protein Total Protein Albumin Urine WBC (Auto) Urine Creatinine Urine Total Protein Coronavirus (PCR) 05/31/20 05/31/20 05/31/20 12:20 13:03 18:13 WBC RBC Hgb Hct RDW Lymph % (Auto) Kidder % (Auto) Eos % (Auto) Lymph # Kidder # Seg Neutrophils % Seg Neuts % (Manual) Lymphocytes % (Manual) Seg Neutrophils # Seg Neutrophils # Man Lymphocytes # (Manual) Monocytes # (Manual) D-Dimer Heparin Anti-Xa Level ABG pH ABG pO2 ABG HCO3 ABG O2 Saturation ABG Base Excess ABG Hemoglobin VBG pH Oxyhemoglobin Sodium Potassium Chloride Carbon Dioxide 18 L BUN 48 H Creatinine 1.6 H Glucose 115 H POC Glucose 128 H 159 H Lactic Acid Calcium 8.3 L AST Alkaline Phosphatase Lactate Dehydrogenase Total Creatine Kinase CK-MB (CK-2) C-Reactive Protein Total Protein 5.4 L Albumin 2.4 L Urine WBC (Auto) Urine Creatinine Urine Total Protein Coronavirus (PCR) 05/31/20 06/01/20 06/01/20 23:51 04:00 05:48 WBC RBC Hgb Hct RDW Lymph % (Auto) Kidder % (Auto) Eos % (Auto) Lymph # Kidder # Seg Neutrophils % Seg Neuts % (Manual) Lymphocytes % (Manual) Seg Neutrophils # Seg Neutrophils # Man Lymphocytes # (Manual) Monocytes # (Manual) D-Dimer Heparin Anti-Xa Level ABG pH ABG pO2 109.8 H ABG HCO3 18.8 L ABG O2 Saturation ABG Base Excess -5.9 L ABG Hemoglobin 7.8 L VBG pH Oxyhemoglobin Sodium Potassium Chloride Carbon Dioxide BUN Creatinine Glucose POC Glucose 171 H 133 H Lactic Acid Calcium AST Alkaline Phosphatase Lactate Dehydrogenase Total Creatine Kinase CK-MB (CK-2) C-Reactive Protein Total Protein Albumin Urine WBC (Auto) Urine Creatinine Urine Total Protein Coronavirus (PCR) 06/01/20 06/01/20 06/02/20 12:28 17:29 00:08 WBC RBC Hgb Hct RDW Lymph % (Auto) Kidder % (Auto) Eos % (Auto) Lymph # Kidder # Seg Neutrophils % Seg Neuts % (Manual) Lymphocytes % (Manual) Seg Neutrophils # Seg Neutrophils # Man Lymphocytes # (Manual) Monocytes # (Manual) D-Dimer Heparin Anti-Xa Level ABG pH ABG pO2 ABG HCO3 ABG O2 Saturation ABG Base Excess ABG Hemoglobin VBG pH Oxyhemoglobin Sodium Potassium Chloride Carbon Dioxide BUN Creatinine Glucose POC Glucose 199 H 209 H 162 H Lactic Acid Calcium AST Alkaline Phosphatase Lactate Dehydrogenase Total Creatine Kinase CK-MB (CK-2) C-Reactive Protein Total Protein Albumin Urine WBC (Auto) Urine Creatinine Urine Total Protein Coronavirus (PCR) 06/02/20 06/02/20 06/02/20 04:20 04:20 04:44 WBC RBC Hgb 10.0 L Hct RDW Lymph % (Auto) Kidder % (Auto) Eos % (Auto) Lymph # Kidder # Seg Neutrophils % Seg Neuts % (Manual) Lymphocytes % (Manual) Seg Neutrophils # Seg Neutrophils # Man Lymphocytes # (Manual) Monocytes # (Manual) D-Dimer Heparin Anti-Xa Level 0.10 L ABG pH ABG pO2 150.6 H ABG HCO3 ABG O2 Saturation ABG Base Excess -4.1 L ABG Hemoglobin 11.8 L VBG pH Oxyhemoglobin Sodium Potassium Chloride Carbon Dioxide BUN Creatinine Glucose POC Glucose Lactic Acid Calcium AST Alkaline Phosphatase Lactate Dehydrogenase Total Creatine Kinase CK-MB (CK-2) C-Reactive Protein Total Protein Albumin Urine WBC (Auto) Urine Creatinine Urine Total Protein Coronavirus (PCR) 06/02/20 06/02/20 06/02/20 05:53 12:04 13:49 WBC RBC Hgb Hct RDW Lymph % (Auto) Kidder % (Auto) Eos % (Auto) Lymph # Kidder # Seg Neutrophils % Seg Neuts % (Manual) Lymphocytes % (Manual) Seg Neutrophils # Seg Neutrophils # Man Lymphocytes # (Manual) Monocytes # (Manual) D-Dimer Heparin Anti-Xa Level 0.28 L ABG pH ABG pO2 ABG HCO3 ABG O2 Saturation ABG Base Excess ABG Hemoglobin VBG pH Oxyhemoglobin Sodium Potassium Chloride Carbon Dioxide BUN Creatinine Glucose POC Glucose 149 H 220 H Lactic Acid Calcium AST Alkaline Phosphatase Lactate Dehydrogenase Total Creatine Kinase CK-MB (CK-2) C-Reactive Protein Total Protein Albumin Urine WBC (Auto) Urine Creatinine Urine Total Protein Coronavirus (PCR) 06/02/20 06/02/20 06/03/20 13:49 18:31 00:42 WBC RBC Hgb Hct RDW Lymph % (Auto) Kidder % (Auto) Eos % (Auto) Lymph # Kidder # Seg Neutrophils % Seg Neuts % (Manual) Lymphocytes % (Manual) Seg Neutrophils # Seg Neutrophils # Man Lymphocytes # (Manual) Monocytes # (Manual) D-Dimer 769.68 H Heparin Anti-Xa Level ABG pH ABG pO2 ABG HCO3 ABG O2 Saturation ABG Base Excess ABG Hemoglobin VBG pH Oxyhemoglobin Sodium Potassium Chloride Carbon Dioxide BUN Creatinine Glucose POC Glucose 225 H 212 H Lactic Acid Calcium AST Alkaline Phosphatase Lactate Dehydrogenase Total Creatine Kinase CK-MB (CK-2) C-Reactive Protein Total Protein Albumin Urine WBC (Auto) Urine Creatinine Urine Total Protein Coronavirus (PCR) 06/03/20 06/03/20 06/03/20 05:16 05:16 05:25 WBC 11.4 H RBC Hgb Hct RDW 16.4 H Lymph % (Auto) Kidder % (Auto) Eos % (Auto) Lymph # Kidder # Seg Neutrophils % Seg Neuts % (Manual) Lymphocytes % (Manual) Seg Neutrophils # Seg Neutrophils # Man Lymphocytes # (Manual) Monocytes # (Manual) D-Dimer Heparin Anti-Xa Level ABG pH ABG pO2 160.9 H ABG HCO3 19.4 L ABG O2 Saturation ABG Base Excess -4.9 L ABG Hemoglobin 7.0 L VBG pH Oxyhemoglobin Sodium Potassium Chloride Carbon Dioxide 18 L BUN 65 H Creatinine 2.0 H Glucose 175 H POC Glucose Lactic Acid Calcium 8.0 L AST Alkaline Phosphatase Lactate Dehydrogenase Total Creatine Kinase CK-MB (CK-2) C-Reactive Protein Total Protein 5.5 L Albumin 2.2 L Urine WBC (Auto) Urine Creatinine Urine Total Protein Coronavirus (PCR) 06/03/20 06/03/20 06/03/20 06:07 11:58 18:24 WBC RBC Hgb Hct RDW Lymph % (Auto) Kidder % (Auto) Eos % (Auto) Lymph # Kidder # Seg Neutrophils % Seg Neuts % (Manual) Lymphocytes % (Manual) Seg Neutrophils # Seg Neutrophils # Man Lymphocytes # (Manual) Monocytes # (Manual) D-Dimer Heparin Anti-Xa Level ABG pH ABG pO2 ABG HCO3 ABG O2 Saturation ABG Base Excess ABG Hemoglobin VBG pH Oxyhemoglobin Sodium Potassium Chloride Carbon Dioxide BUN Creatinine Glucose POC Glucose 177 H 163 H 211 H Lactic Acid Calcium AST Alkaline Phosphatase Lactate Dehydrogenase Total Creatine Kinase CK-MB (CK-2) C-Reactive Protein Total Protein Albumin Urine WBC (Auto) Urine Creatinine Urine Total Protein Coronavirus (PCR) 06/03/20 06/03/20 06/04/20 21:50 Unknown 00:26 WBC RBC Hgb Hct RDW Lymph % (Auto) Kidder % (Auto) Eos % (Auto) Lymph # Kidder # Seg Neutrophils % Seg Neuts % (Manual) Lymphocytes % (Manual) Seg Neutrophils # Seg Neutrophils # Man Lymphocytes # (Manual) Monocytes # (Manual) D-Dimer Heparin Anti-Xa Level ABG pH ABG pO2 ABG HCO3 ABG O2 Saturation ABG Base Excess ABG Hemoglobin VBG pH Oxyhemoglobin Sodium 135 L Potassium Chloride Carbon Dioxide 18 L BUN Creatinine Glucose POC Glucose 241 H Lactic Acid Calcium AST Alkaline Phosphatase Lactate Dehydrogenase Total Creatine Kinase CK-MB (CK-2) C-Reactive Protein Total Protein Albumin Urine WBC (Auto) 11.0 H Urine Creatinine Urine Total Protein Coronavirus (PCR) 06/04/20 06/04/20 06/04/20 03:35 04:19 04:19 WBC RBC 3.15 L Hgb 8.9 L Hct 26.8 L D RDW 15.9 H Lymph % (Auto) 6.0 L Kidder % (Auto) Eos % (Auto) Lymph # 0.6 L Kidder # Seg Neutrophils % 86.6 H Seg Neuts % (Manual) Lymphocytes % (Manual) Seg Neutrophils # 9.1 H Seg Neutrophils # Man Lymphocytes # (Manual) Monocytes # (Manual) D-Dimer Heparin Anti-Xa Level ABG pH 7.331 L ABG pO2 ABG HCO3 ABG O2 Saturation ABG Base Excess -4.7 L ABG Hemoglobin 11.0 L VBG pH Oxyhemoglobin 93.9 L Sodium 136 L Potassium Chloride Carbon Dioxide 20 L BUN 73 H Creatinine 2.0 H Glucose 192 H POC Glucose Lactic Acid Calcium 8.0 L AST Alkaline Phosphatase Lactate Dehydrogenase 271 H Total Creatine Kinase CK-MB (CK-2) C-Reactive Protein 2.20 H Total Protein 5.0 L Albumin 2.0 L Urine WBC (Auto) Urine Creatinine Urine Total Protein Coronavirus (PCR) 06/04/20 06/04/20 06/04/20 04:19 05:51 11:48 WBC RBC Hgb Hct RDW Lymph % (Auto) Kidder % (Auto) Eos % (Auto) Lymph # Kidder # Seg Neutrophils % Seg Neuts % (Manual) Lymphocytes % (Manual) Seg Neutrophils # Seg Neutrophils # Man Lymphocytes # (Manual) Monocytes # (Manual) D-Dimer 414.52 H Heparin Anti-Xa Level ABG pH ABG pO2 ABG HCO3 ABG O2 Saturation ABG Base Excess ABG Hemoglobin VBG pH Oxyhemoglobin Sodium Potassium Chloride Carbon Dioxide BUN Creatinine Glucose POC Glucose 179 H 213 H Lactic Acid Calcium AST Alkaline Phosphatase Lactate Dehydrogenase Total Creatine Kinase CK-MB (CK-2) C-Reactive Protein Total Protein Albumin Urine WBC (Auto) Urine Creatinine Urine Total Protein Coronavirus (PCR) 06/04/20 06/05/20 06/05/20 18:25 00:16 05:00 WBC RBC Hgb Hct RDW Lymph % (Auto) Kidder % (Auto) Eos % (Auto) Lymph # Kidder # Seg Neutrophils % Seg Neuts % (Manual) Lymphocytes % (Manual) Seg Neutrophils # Seg Neutrophils # Man Lymphocytes # (Manual) Monocytes # (Manual) D-Dimer Heparin Anti-Xa Level ABG pH 7.286 L ABG pO2 96.2 H ABG HCO3 ABG O2 Saturation ABG Base Excess -6.3 L ABG Hemoglobin 8.8 L VBG pH Oxyhemoglobin 94.8 L Sodium Potassium Chloride Carbon Dioxide BUN Creatinine Glucose POC Glucose 238 H 183 H Lactic Acid Calcium AST Alkaline Phosphatase Lactate Dehydrogenase Total Creatine Kinase CK-MB (CK-2) C-Reactive Protein Total Protein Albumin Urine WBC (Auto) Urine Creatinine Urine Total Protein Coronavirus (PCR) 06/05/20 06/05/20 06/05/20 05:39 07:25 07:25 WBC RBC 2.97 L Hgb 8.7 L Hct 25.7 L RDW 16.0 H Lymph % (Auto) 8.8 L Kidder % (Auto) 13.3 H Eos % (Auto) Lymph # 0.8 L Kidder # 1.3 H Seg Neutrophils % 77.3 H Seg Neuts % (Manual) Lymphocytes % (Manual) Seg Neutrophils # Seg Neutrophils # Man Lymphocytes # (Manual) Monocytes # (Manual) D-Dimer Heparin Anti-Xa Level ABG pH ABG pO2 ABG HCO3 ABG O2 Saturation ABG Base Excess ABG Hemoglobin VBG pH Oxyhemoglobin Sodium 133 L Potassium Chloride Carbon Dioxide 17 L BUN 89 H Creatinine 2.8 H Glucose 176 H POC Glucose 149 H Lactic Acid Calcium 7.7 L AST Alkaline Phosphatase Lactate Dehydrogenase Total Creatine Kinase CK-MB (CK-2) C-Reactive Protein Total Protein 4.2 L Albumin 1.9 L Urine WBC (Auto) Urine Creatinine Urine Total Protein Coronavirus (PCR) 06/05/20 06/05/20 06/05/20 07:25 12:05 15:41 WBC RBC Hgb Hct RDW Lymph % (Auto) Kidder % (Auto) Eos % (Auto) Lymph # Kidder # Seg Neutrophils % Seg Neuts % (Manual) Lymphocytes % (Manual) Seg Neutrophils # Seg Neutrophils # Man Lymphocytes # (Manual) Monocytes # (Manual) D-Dimer Heparin Anti-Xa Level 0.76 H 0.81 H ABG pH ABG pO2 ABG HCO3 ABG O2 Saturation ABG Base Excess ABG Hemoglobin VBG pH Oxyhemoglobin Sodium Potassium Chloride Carbon Dioxide BUN Creatinine Glucose POC Glucose 198 H Lactic Acid Calcium AST Alkaline Phosphatase Lactate Dehydrogenase Total Creatine Kinase CK-MB (CK-2) C-Reactive Protein Total Protein Albumin Urine WBC (Auto) Urine Creatinine Urine Total Protein Coronavirus (PCR) 06/05/20 06/05/20 06/06/20 18:08 23:25 04:00 WBC RBC Hgb Hct RDW Lymph % (Auto) Kidder % (Auto) Eos % (Auto) Lymph # Kidder # Seg Neutrophils % Seg Neuts % (Manual) Lymphocytes % (Manual) Seg Neutrophils # Seg Neutrophils # Man Lymphocytes # (Manual) Monocytes # (Manual) D-Dimer Heparin Anti-Xa Level ABG pH ABG pO2 ABG HCO3 ABG O2 Saturation ABG Base Excess ABG Hemoglobin VBG pH Oxyhemoglobin Sodium Potassium Chloride Carbon Dioxide BUN Creatinine Glucose POC Glucose 223 H 169 H Lactic Acid Calcium AST Alkaline Phosphatase Lactate Dehydrogenase Total Creatine Kinase CK-MB (CK-2) C-Reactive Protein Total Protein Albumin Urine WBC (Auto) 15.0 H Urine Creatinine Urine Total Protein Coronavirus (PCR) 06/06/20 06/06/20 06/06/20 04:00 05:33 05:38 WBC RBC 2.97 L Hgb 8.7 L Hct 26.8 L RDW 16.8 H Lymph % (Auto) Kidder % (Auto) Eos % (Auto) Lymph # Kidder # Seg Neutrophils % Seg Neuts % (Manual) Lymphocytes % (Manual) Seg Neutrophils # Seg Neutrophils # Man Lymphocytes # (Manual) Monocytes # (Manual) D-Dimer Heparin Anti-Xa Level ABG pH ABG pO2 ABG HCO3 ABG O2 Saturation ABG Base Excess ABG Hemoglobin VBG pH Oxyhemoglobin Sodium Potassium Chloride Carbon Dioxide BUN Creatinine Glucose POC Glucose 186 H Lactic Acid Calcium AST Alkaline Phosphatase Lactate Dehydrogenase Total Creatine Kinase CK-MB (CK-2) C-Reactive Protein Total Protein Albumin Urine WBC (Auto) Urine Creatinine 82.2 H Urine Total Protein 196 H Coronavirus (PCR) 06/06/20 06/06/20 06/06/20 05:38 12:25 17:03 WBC RBC Hgb Hct RDW Lymph % (Auto) Kidder % (Auto) Eos % (Auto) Lymph # Kidder # Seg Neutrophils % Seg Neuts % (Manual) Lymphocytes % (Manual) Seg Neutrophils # Seg Neutrophils # Man Lymphocytes # (Manual) Monocytes # (Manual) D-Dimer Heparin Anti-Xa Level ABG pH ABG pO2 ABG HCO3 ABG O2 Saturation ABG Base Excess ABG Hemoglobin VBG pH Oxyhemoglobin Sodium 134 L Potassium 5.2 H Chloride Carbon Dioxide 18 L BUN 97 H Creatinine 2.5 H Glucose 193 H POC Glucose 239 H 252 H Lactic Acid Calcium 7.5 L AST Alkaline Phosphatase Lactate Dehydrogenase Total Creatine Kinase CK-MB (CK-2) C-Reactive Protein Total Protein 4.1 L Albumin 1.9 L Urine WBC (Auto) Urine Creatinine Urine Total Protein Coronavirus (PCR) 06/07/20 06/07/20 06/07/20 00:16 01:49 04:00 WBC RBC 2.91 L Hgb 8.4 L Hct 25.0 L RDW 16.1 H Lymph % (Auto) 5.7 L Kidder % (Auto) 10.5 H Eos % (Auto) Lymph # 0.6 L Kidder # 1.1 H Seg Neutrophils % 83.6 H Seg Neuts % (Manual) Lymphocytes % (Manual) Seg Neutrophils # 9.1 H Seg Neutrophils # Man Lymphocytes # (Manual) Monocytes # (Manual) D-Dimer Heparin Anti-Xa Level 0.26 L ABG pH ABG pO2 ABG HCO3 ABG O2 Saturation ABG Base Excess ABG Hemoglobin VBG pH Oxyhemoglobin Sodium Potassium Chloride Carbon Dioxide BUN Creatinine Glucose POC Glucose 173 H Lactic Acid Calcium AST Alkaline Phosphatase Lactate Dehydrogenase Total Creatine Kinase CK-MB (CK-2) C-Reactive Protein Total Protein Albumin Urine WBC (Auto) Urine Creatinine Urine Total Protein Coronavirus (PCR) 06/07/20 06/07/20 06/07/20 04:00 04:54 05:51 WBC RBC Hgb Hct RDW Lymph % (Auto) Kidder % (Auto) Eos % (Auto) Lymph # Kidder # Seg Neutrophils % Seg Neuts % (Manual) Lymphocytes % (Manual) Seg Neutrophils # Seg Neutrophils # Man Lymphocytes # (Manual) Monocytes # (Manual) D-Dimer Heparin Anti-Xa Level ABG pH 7.317 L ABG pO2 71.4 L ABG HCO3 ABG O2 Saturation 94.3 L ABG Base Excess -4.8 L ABG Hemoglobin 7.1 L VBG pH Oxyhemoglobin 92.2 L Sodium 133 L Potassium Chloride Carbon Dioxide 18 L BUN 100 H Creatinine 2.5 H Glucose 158 H POC Glucose 168 H Lactic Acid Calcium 7.6 L AST Alkaline Phosphatase Lactate Dehydrogenase Total Creatine Kinase CK-MB (CK-2) C-Reactive Protein Total Protein 4.7 L Albumin 2.0 L Urine WBC (Auto) Urine Creatinine Urine Total Protein Coronavirus (PCR) 06/07/20 06/07/20 06/07/20 12:03 17:17 20:10 WBC RBC Hgb Hct RDW Lymph % (Auto) Kidder % (Auto) Eos % (Auto) Lymph # Kidder # Seg Neutrophils % Seg Neuts % (Manual) Lymphocytes % (Manual) Seg Neutrophils # Seg Neutrophils # Man Lymphocytes # (Manual) Monocytes # (Manual) D-Dimer Heparin Anti-Xa Level 0.17 L ABG pH ABG pO2 ABG HCO3 ABG O2 Saturation ABG Base Excess ABG Hemoglobin VBG pH Oxyhemoglobin Sodium Potassium Chloride Carbon Dioxide BUN Creatinine Glucose POC Glucose 276 H 281 H Lactic Acid Calcium AST Alkaline Phosphatase Lactate Dehydrogenase Total Creatine Kinase CK-MB (CK-2) C-Reactive Protein Total Protein Albumin Urine WBC (Auto) Urine Creatinine Urine Total Protein Coronavirus (PCR) 06/08/20 06/08/20 06/08/20 00:02 04:47 04:47 WBC 16.4 H RBC 3.07 L Hgb 8.6 L Hct 26.5 L RDW 16.3 H Lymph % (Auto) Kidder % (Auto) Eos % (Auto) Lymph # Kidder # Seg Neutrophils % Seg Neuts % (Manual) 90.0 H Lymphocytes % (Manual) 3.0 L Seg Neutrophils # Seg Neutrophils # Man 14.8 H Lymphocytes # (Manual) 0.5 L Monocytes # (Manual) 1.1 H D-Dimer Heparin Anti-Xa Level ABG pH ABG pO2 ABG HCO3 ABG O2 Saturation ABG Base Excess ABG Hemoglobin VBG pH Oxyhemoglobin Sodium 129 L Potassium Chloride 95.6 L Carbon Dioxide 17 L BUN 106 H Creatinine 2.5 H Glucose 213 H POC Glucose 242 H Lactic Acid Calcium 7.6 L AST Alkaline Phosphatase Lactate Dehydrogenase Total Creatine Kinase CK-MB (CK-2) C-Reactive Protein Total Protein 5.0 L Albumin 2.1 L Urine WBC (Auto) Urine Creatinine Urine Total Protein Coronavirus (PCR) 06/08/20 06/08/20 06/08/20 05:40 11:55 17:54 WBC RBC Hgb Hct RDW Lymph % (Auto) Kidder % (Auto) Eos % (Auto) Lymph # Kidder # Seg Neutrophils % Seg Neuts % (Manual) Lymphocytes % (Manual) Seg Neutrophils # Seg Neutrophils # Man Lymphocytes # (Manual) Monocytes # (Manual) D-Dimer Heparin Anti-Xa Level ABG pH ABG pO2 ABG HCO3 ABG O2 Saturation ABG Base Excess ABG Hemoglobin VBG pH Oxyhemoglobin Sodium Potassium Chloride Carbon Dioxide BUN Creatinine Glucose POC Glucose 221 H 218 H 163 H Lactic Acid Calcium AST Alkaline Phosphatase Lactate Dehydrogenase Total Creatine Kinase CK-MB (CK-2) C-Reactive Protein Total Protein Albumin Urine WBC (Auto) Urine Creatinine Urine Total Protein Coronavirus (PCR) 06/08/20 06/09/20 06/09/20 22:01 00:09 05:16 WBC 19.0 H RBC 3.35 L Hgb 9.2 L Hct 28.5 L RDW 16.3 H Lymph % (Auto) Kidder % (Auto) Eos % (Auto) Lymph # Kidder # Seg Neutrophils % Seg Neuts % (Manual) 85.0 H Lymphocytes % (Manual) 7.0 L Seg Neutrophils # Seg Neutrophils # Man 16.2 H Lymphocytes # (Manual) Monocytes # (Manual) 1.3 H D-Dimer Heparin Anti-Xa Level ABG pH ABG pO2 ABG HCO3 ABG O2 Saturation ABG Base Excess ABG Hemoglobin VBG pH Oxyhemoglobin Sodium Potassium Chloride Carbon Dioxide BUN Creatinine Glucose POC Glucose 182 H 150 H Lactic Acid Calcium AST Alkaline Phosphatase Lactate Dehydrogenase Total Creatine Kinase CK-MB (CK-2) C-Reactive Protein Total Protein Albumin Urine WBC (Auto) Urine Creatinine Urine Total Protein Coronavirus (PCR) 06/09/20 06/09/20 06/09/20 05:16 05:24 11:29 WBC RBC Hgb Hct RDW Lymph % (Auto) Kidder % (Auto) Eos % (Auto) Lymph # Kidder # Seg Neutrophils % Seg Neuts % (Manual) Lymphocytes % (Manual) Seg Neutrophils # Seg Neutrophils # Man Lymphocytes # (Manual) Monocytes # (Manual) D-Dimer Heparin Anti-Xa Level ABG pH ABG pO2 ABG HCO3 ABG O2 Saturation ABG Base Excess ABG Hemoglobin VBG pH Oxyhemoglobin Sodium 133 L Potassium Chloride Carbon Dioxide 19 L BUN 109 H Creatinine 2.1 H Glucose 133 H POC Glucose 128 H 119 H Lactic Acid Calcium 7.7 L AST Alkaline Phosphatase < 5 L Lactate Dehydrogenase Total Creatine Kinase CK-MB (CK-2) C-Reactive Protein Total Protein 4.6 L Albumin < 0.2 L Urine WBC (Auto) Urine Creatinine Urine Total Protein Coronavirus (PCR) 06/09/20 06/10/20 06/10/20 17:32 00:00 05:49 WBC RBC Hgb Hct RDW Lymph % (Auto) Kidder % (Auto) Eos % (Auto) Lymph # Kidder # Seg Neutrophils % Seg Neuts % (Manual) Lymphocytes % (Manual) Seg Neutrophils # Seg Neutrophils # Man Lymphocytes # (Manual) Monocytes # (Manual) D-Dimer Heparin Anti-Xa Level 0.19 L ABG pH ABG pO2 ABG HCO3 ABG O2 Saturation ABG Base Excess ABG Hemoglobin VBG pH Oxyhemoglobin Sodium Potassium Chloride Carbon Dioxide BUN Creatinine Glucose POC Glucose 106 H 117 H Lactic Acid Calcium AST Alkaline Phosphatase Lactate Dehydrogenase Total Creatine Kinase CK-MB (CK-2) C-Reactive Protein Total Protein Albumin Urine WBC (Auto) Urine Creatinine Urine Total Protein Coronavirus (PCR) 06/10/20 06/10/20 06/10/20 05:54 07:40 11:40 WBC RBC Hgb Hct RDW Lymph % (Auto) Kidder % (Auto) Eos % (Auto) Lymph # Kidder # Seg Neutrophils % Seg Neuts % (Manual) Lymphocytes % (Manual) Seg Neutrophils # Seg Neutrophils # Man Lymphocytes # (Manual) Monocytes # (Manual) D-Dimer Heparin Anti-Xa Level ABG pH ABG pO2 ABG HCO3 ABG O2 Saturation ABG Base Excess ABG Hemoglobin VBG pH Oxyhemoglobin Sodium 146 H D Potassium Chloride Carbon Dioxide 20 L BUN 99 H Creatinine 1.9 H Glucose 121 H POC Glucose 127 H 138 H Lactic Acid Calcium 8.2 L AST Alkaline Phosphatase Lactate Dehydrogenase Total Creatine Kinase CK-MB (CK-2) C-Reactive Protein Total Protein Albumin Urine WBC (Auto) Urine Creatinine Urine Total Protein Coronavirus (PCR) 06/10/20 06/10/20 06/10/20 14:44 17:31 23:22 WBC RBC Hgb Hct RDW Lymph % (Auto) Kidder % (Auto) Eos % (Auto) Lymph # Kidder # Seg Neutrophils % Seg Neuts % (Manual) Lymphocytes % (Manual) Seg Neutrophils # Seg Neutrophils # Man Lymphocytes # (Manual) Monocytes # (Manual) D-Dimer Heparin Anti-Xa Level 0.17 L ABG pH ABG pO2 ABG HCO3 ABG O2 Saturation ABG Base Excess ABG Hemoglobin VBG pH Oxyhemoglobin Sodium Potassium Chloride Carbon Dioxide BUN Creatinine Glucose POC Glucose 128 H 114 H Lactic Acid Calcium AST Alkaline Phosphatase Lactate Dehydrogenase Total Creatine Kinase CK-MB (CK-2) C-Reactive Protein Total Protein Albumin Urine WBC (Auto) Urine Creatinine Urine Total Protein Coronavirus (PCR) 06/11/20 06/11/20 06/11/20 00:22 03:45 03:45 WBC 14.6 H RBC 2.77 L Hgb 7.9 L Hct 24.3 L RDW 16.8 H Lymph % (Auto) 6.6 L Kidder % (Auto) 8.5 H Eos % (Auto) Lymph # 1.0 L Kidder # 1.2 H Seg Neutrophils % 82.9 H Seg Neuts % (Manual) Lymphocytes % (Manual) Seg Neutrophils # 12.1 H Seg Neutrophils # Man Lymphocytes # (Manual) Monocytes # (Manual) D-Dimer Heparin Anti-Xa Level 0.24 L ABG pH ABG pO2 ABG HCO3 ABG O2 Saturation ABG Base Excess ABG Hemoglobin VBG pH Oxyhemoglobin Sodium Potassium Chloride Carbon Dioxide 20 L BUN 88 H Creatinine 1.5 H Glucose 111 H POC Glucose Lactic Acid Calcium 8.2 L AST Alkaline Phosphatase Lactate Dehydrogenase Total Creatine Kinase CK-MB (CK-2) C-Reactive Protein Total Protein Albumin Urine WBC (Auto) Urine Creatinine Urine Total Protein Coronavirus (PCR) 06/11/20 06/11/20 06/11/20 06:03 10:22 11:11 WBC RBC Hgb Hct RDW Lymph % (Auto) Kidder % (Auto) Eos % (Auto) Lymph # Kidder # Seg Neutrophils % Seg Neuts % (Manual) Lymphocytes % (Manual) Seg Neutrophils # Seg Neutrophils # Man Lymphocytes # (Manual) Monocytes # (Manual) D-Dimer Heparin Anti-Xa Level 0.26 L ABG pH ABG pO2 ABG HCO3 ABG O2 Saturation ABG Base Excess ABG Hemoglobin 9.6 L VBG pH Oxyhemoglobin Sodium Potassium Chloride Carbon Dioxide BUN Creatinine Glucose POC Glucose 114 H Lactic Acid Calcium AST Alkaline Phosphatase Lactate Dehydrogenase Total Creatine Kinase CK-MB (CK-2) C-Reactive Protein Total Protein Albumin Urine WBC (Auto) Urine Creatinine Urine Total Protein Coronavirus (PCR) 06/11/20 06/11/20 06/12/20 12:24 17:24 00:21 WBC RBC Hgb Hct RDW Lymph % (Auto) Kidder % (Auto) Eos % (Auto) Lymph # Kidder # Seg Neutrophils % Seg Neuts % (Manual) Lymphocytes % (Manual) Seg Neutrophils # Seg Neutrophils # Man Lymphocytes # (Manual) Monocytes # (Manual) D-Dimer Heparin Anti-Xa Level ABG pH ABG pO2 ABG HCO3 ABG O2 Saturation ABG Base Excess ABG Hemoglobin VBG pH Oxyhemoglobin Sodium Potassium Chloride Carbon Dioxide BUN Creatinine Glucose POC Glucose 119 H 126 H 117 H Lactic Acid Calcium AST Alkaline Phosphatase Lactate Dehydrogenase Total Creatine Kinase CK-MB (CK-2) C-Reactive Protein Total Protein Albumin Urine WBC (Auto) Urine Creatinine Urine Total Protein Coronavirus (PCR) 06/12/20 06/12/20 06/12/20 02:46 02:46 05:46 WBC 13.2 H RBC 2.83 L Hgb 8.3 L Hct 24.3 L RDW 16.6 H Lymph % (Auto) 6.2 L Kidder % (Auto) 9.5 H Eos % (Auto) Lymph # 0.8 L Kidder # 1.3 H Seg Neutrophils % 81.9 H Seg Neuts % (Manual) Lymphocytes % (Manual) Seg Neutrophils # 10.9 H Seg Neutrophils # Man Lymphocytes # (Manual) Monocytes # (Manual) D-Dimer Heparin Anti-Xa Level ABG pH ABG pO2 ABG HCO3 ABG O2 Saturation ABG Base Excess ABG Hemoglobin VBG pH Oxyhemoglobin Sodium Potassium 3.5 L Chloride Carbon Dioxide BUN 77 H Creatinine 1.3 H Glucose POC Glucose 132 H Lactic Acid Calcium 8.3 L AST Alkaline Phosphatase Lactate Dehydrogenase Total Creatine Kinase CK-MB (CK-2) C-Reactive Protein Total Protein Albumin Urine WBC (Auto) Urine Creatinine Urine Total Protein Coronavirus (PCR) 06/12/20 06/12/20 06/12/20 09:20 12:16 17:48 WBC RBC Hgb Hct RDW Lymph % (Auto) Kidder % (Auto) Eos % (Auto) Lymph # Kidder # Seg Neutrophils % Seg Neuts % (Manual) Lymphocytes % (Manual) Seg Neutrophils # Seg Neutrophils # Man Lymphocytes # (Manual) Monocytes # (Manual) D-Dimer Heparin Anti-Xa Level ABG pH ABG pO2 91.1 H ABG HCO3 ABG O2 Saturation ABG Base Excess ABG Hemoglobin VBG pH Oxyhemoglobin 94.8 L Sodium Potassium Chloride Carbon Dioxide BUN Creatinine Glucose POC Glucose 167 H 182 H Lactic Acid Calcium AST Alkaline Phosphatase Lactate Dehydrogenase Total Creatine Kinase CK-MB (CK-2) C-Reactive Protein Total Protein Albumin Urine WBC (Auto) Urine Creatinine Urine Total Protein Coronavirus (PCR) 06/13/20 06/13/20 06/13/20 00:08 05:37 09:09 WBC RBC Hgb Hct RDW Lymph % (Auto) Kidder % (Auto) Eos % (Auto) Lymph # Kidder # Seg Neutrophils % Seg Neuts % (Manual) Lymphocytes % (Manual) Seg Neutrophils # Seg Neutrophils # Man Lymphocytes # (Manual) Monocytes # (Manual) D-Dimer Heparin Anti-Xa Level 0.86 H ABG pH ABG pO2 ABG HCO3 ABG O2 Saturation ABG Base Excess ABG Hemoglobin VBG pH Oxyhemoglobin Sodium Potassium Chloride Carbon Dioxide BUN Creatinine Glucose POC Glucose 142 H 119 H Lactic Acid Calcium AST Alkaline Phosphatase Lactate Dehydrogenase Total Creatine Kinase CK-MB (CK-2) C-Reactive Protein Total Protein Albumin Urine WBC (Auto) Urine Creatinine Urine Total Protein Coronavirus (PCR) 06/13/20 06/13/20 06/13/20 12:28 17:55 21:17 WBC RBC Hgb Hct RDW Lymph % (Auto) Kidder % (Auto) Eos % (Auto) Lymph # Kidder # Seg Neutrophils % Seg Neuts % (Manual) Lymphocytes % (Manual) Seg Neutrophils # Seg Neutrophils # Man Lymphocytes # (Manual) Monocytes # (Manual) D-Dimer Heparin Anti-Xa Level ABG pH ABG pO2 ABG HCO3 ABG O2 Saturation ABG Base Excess ABG Hemoglobin VBG pH Oxyhemoglobin Sodium Potassium Chloride Carbon Dioxide BUN 61 H Creatinine Glucose 131 H POC Glucose 165 H 174 H Lactic Acid Calcium AST Alkaline Phosphatase Lactate Dehydrogenase Total Creatine Kinase CK-MB (CK-2) C-Reactive Protein Total Protein Albumin Urine WBC (Auto) Urine Creatinine Urine Total Protein Coronavirus (PCR) 06/13/20 06/13/20 06/14/20 21:17 23:50 05:34 WBC RBC Hgb Hct RDW Lymph % (Auto) Kidder % (Auto) Eos % (Auto) Lymph # Kidder # Seg Neutrophils % Seg Neuts % (Manual) Lymphocytes % (Manual) Seg Neutrophils # Seg Neutrophils # Man Lymphocytes # (Manual) Monocytes # (Manual) D-Dimer Heparin Anti-Xa Level 0.72 H ABG pH ABG pO2 ABG HCO3 ABG O2 Saturation ABG Base Excess ABG Hemoglobin VBG pH Oxyhemoglobin Sodium 146 H Potassium Chloride 107.6 H Carbon Dioxide BUN 61 H Creatinine 1.3 H Glucose 135 H POC Glucose 146 H Lactic Acid Calcium AST Alkaline Phosphatase Lactate Dehydrogenase Total Creatine Kinase CK-MB (CK-2) C-Reactive Protein Total Protein Albumin Urine WBC (Auto) Urine Creatinine Urine Total Protein Coronavirus (PCR) 06/14/20 06/14/20 06/14/20 06:11 09:28 11:30 WBC RBC Hgb Hct RDW Lymph % (Auto) Kidder % (Auto) Eos % (Auto) Lymph # Kidder # Seg Neutrophils % Seg Neuts % (Manual) Lymphocytes % (Manual) Seg Neutrophils # Seg Neutrophils # Man Lymphocytes # (Manual) Monocytes # (Manual) D-Dimer Heparin Anti-Xa Level 0.90 H ABG pH ABG pO2 ABG HCO3 ABG O2 Saturation ABG Base Excess ABG Hemoglobin VBG pH Oxyhemoglobin Sodium Potassium Chloride Carbon Dioxide BUN Creatinine Glucose POC Glucose 141 H 186 H Lactic Acid Calcium AST Alkaline Phosphatase Lactate Dehydrogenase Total Creatine Kinase CK-MB (CK-2) C-Reactive Protein Total Protein Albumin Urine WBC (Auto) Urine Creatinine Urine Total Protein Coronavirus (PCR) 06/14/20 06/14/20 06/14/20 16:07 18:16 23:51 WBC RBC Hgb Hct RDW Lymph % (Auto) Kidder % (Auto) Eos % (Auto) Lymph # Kidder # Seg Neutrophils % Seg Neuts % (Manual) Lymphocytes % (Manual) Seg Neutrophils # Seg Neutrophils # Man Lymphocytes # (Manual) Monocytes # (Manual) D-Dimer Heparin Anti-Xa Level 0.82 H ABG pH ABG pO2 ABG HCO3 ABG O2 Saturation ABG Base Excess ABG Hemoglobin VBG pH Oxyhemoglobin Sodium Potassium Chloride Carbon Dioxide BUN Creatinine Glucose POC Glucose 106 H 154 H Lactic Acid Calcium AST Alkaline Phosphatase Lactate Dehydrogenase Total Creatine Kinase CK-MB (CK-2) C-Reactive Protein Total Protein Albumin Urine WBC (Auto) Urine Creatinine Urine Total Protein Coronavirus (PCR) 06/15/20 06/15/20 06/15/20 04:24 04:24 05:59 WBC RBC 2.75 L Hgb 7.9 L Hct 24.0 L RDW 16.4 H Lymph % (Auto) 12.9 L Kidder % (Auto) 8.7 H Eos % (Auto) 4.6 H Lymph # 1.1 L Kidder # Seg Neutrophils % 73.2 H Seg Neuts % (Manual) Lymphocytes % (Manual) Seg Neutrophils # Seg Neutrophils # Man Lymphocytes # (Manual) Monocytes # (Manual) D-Dimer Heparin Anti-Xa Level ABG pH ABG pO2 ABG HCO3 ABG O2 Saturation ABG Base Excess ABG Hemoglobin VBG pH Oxyhemoglobin Sodium Potassium 3.4 L Chloride Carbon Dioxide BUN 55 H Creatinine 1.3 H Glucose 142 H POC Glucose 131 H Lactic Acid Calcium AST Alkaline Phosphatase Lactate Dehydrogenase Total Creatine Kinase CK-MB (CK-2) C-Reactive Protein Total Protein Albumin Urine WBC (Auto) Urine Creatinine Urine Total Protein Coronavirus (PCR) 06/15/20 06/15/20 06/16/20 12:33 17:07 00:22 WBC RBC Hgb Hct RDW Lymph % (Auto) Kidder % (Auto) Eos % (Auto) Lymph # Kidder # Seg Neutrophils % Seg Neuts % (Manual) Lymphocytes % (Manual) Seg Neutrophils # Seg Neutrophils # Man Lymphocytes # (Manual) Monocytes # (Manual) D-Dimer Heparin Anti-Xa Level 0.21 L ABG pH ABG pO2 ABG HCO3 ABG O2 Saturation ABG Base Excess ABG Hemoglobin VBG pH Oxyhemoglobin Sodium Potassium Chloride Carbon Dioxide BUN Creatinine Glucose POC Glucose 180 H 185 H Lactic Acid Calcium AST Alkaline Phosphatase Lactate Dehydrogenase Total Creatine Kinase CK-MB (CK-2) C-Reactive Protein Total Protein Albumin Urine WBC (Auto) Urine Creatinine Urine Total Protein Coronavirus (PCR) 06/16/20 06/16/20 06/16/20 01:45 08:06 09:15 WBC RBC Hgb Hct RDW Lymph % (Auto) Kidder % (Auto) Eos % (Auto) Lymph # Kidder # Seg Neutrophils % Seg Neuts % (Manual) Lymphocytes % (Manual) Seg Neutrophils # Seg Neutrophils # Man Lymphocytes # (Manual) Monocytes # (Manual) D-Dimer Heparin Anti-Xa Level ABG pH ABG pO2 ABG HCO3 ABG O2 Saturation ABG Base Excess ABG Hemoglobin VBG pH Oxyhemoglobin Sodium Potassium Chloride Carbon Dioxide BUN 49 H Creatinine Glucose 154 H POC Glucose 140 H 171 H Lactic Acid Calcium AST Alkaline Phosphatase Lactate Dehydrogenase Total Creatine Kinase CK-MB (CK-2) C-Reactive Protein Total Protein Albumin Urine WBC (Auto) Urine Creatinine Urine Total Protein Coronavirus (PCR) 06/16/20 06/16/20 06/16/20 10:46 12:33 17:54 WBC RBC Hgb Hct RDW Lymph % (Auto) Kidder % (Auto) Eos % (Auto) Lymph # Kidder # Seg Neutrophils % Seg Neuts % (Manual) Lymphocytes % (Manual) Seg Neutrophils # Seg Neutrophils # Man Lymphocytes # (Manual) Monocytes # (Manual) D-Dimer Heparin Anti-Xa Level 0.12 L ABG pH ABG pO2 ABG HCO3 ABG O2 Saturation ABG Base Excess ABG Hemoglobin VBG pH Oxyhemoglobin Sodium Potassium Chloride Carbon Dioxide BUN Creatinine Glucose POC Glucose 166 H 151 H Lactic Acid Calcium AST Alkaline Phosphatase Lactate Dehydrogenase Total Creatine Kinase CK-MB (CK-2) C-Reactive Protein Total Protein Albumin Urine WBC (Auto) Urine Creatinine Urine Total Protein Coronavirus (PCR) 09/08/20 09/09/20 09/09/20 18:47 00:00 02:19 WBC RBC Hgb Hct RDW Lymph % (Auto) Kidder % (Auto) Eos % (Auto) Lymph # Kidder # Seg Neutrophils % Seg Neuts % (Manual) Lymphocytes % (Manual) Seg Neutrophils # Seg Neutrophils # Man Lymphocytes # (Manual) Monocytes # (Manual) D-Dimer Heparin Anti-Xa Level 0.73 H 0.77 H ABG pH ABG pO2 ABG HCO3 ABG O2 Saturation ABG Base Excess ABG Hemoglobin VBG pH Oxyhemoglobin Sodium Potassium Chloride Carbon Dioxide BUN Creatinine Glucose POC Glucose 139 H Lactic Acid Calcium AST Alkaline Phosphatase Lactate Dehydrogenase Total Creatine Kinase CK-MB (CK-2) C-Reactive Protein Total Protein Albumin Urine WBC (Auto) Urine Creatinine Urine Total Protein Coronavirus (PCR) 06/17/20 06/17/20 06/17/20 06:07 11:42 16:43 WBC RBC Hgb Hct RDW Lymph % (Auto) Kidder % (Auto) Eos % (Auto) Lymph # Kidder # Seg Neutrophils % Seg Neuts % (Manual) Lymphocytes % (Manual) Seg Neutrophils # Seg Neutrophils # Man Lymphocytes # (Manual) Monocytes # (Manual) D-Dimer Heparin Anti-Xa Level 0.73 H ABG pH ABG pO2 ABG HCO3 ABG O2 Saturation ABG Base Excess ABG Hemoglobin VBG pH Oxyhemoglobin Sodium Potassium Chloride Carbon Dioxide BUN Creatinine Glucose POC Glucose 169 H 169 H Lactic Acid Calcium AST Alkaline Phosphatase Lactate Dehydrogenase Total Creatine Kinase CK-MB (CK-2) C-Reactive Protein Total Protein Albumin Urine WBC (Auto) Urine Creatinine Urine Total Protein Coronavirus (PCR) 06/17/20 06/17/20 06/17/20 18:18 23:08 23:16 WBC RBC Hgb Hct RDW Lymph % (Auto) Kidder % (Auto) Eos % (Auto) Lymph # Kidder # Seg Neutrophils % Seg Neuts % (Manual) Lymphocytes % (Manual) Seg Neutrophils # Seg Neutrophils # Man Lymphocytes # (Manual) Monocytes # (Manual) D-Dimer Heparin Anti-Xa Level 0.71 H ABG pH ABG pO2 ABG HCO3 ABG O2 Saturation ABG Base Excess ABG Hemoglobin VBG pH Oxyhemoglobin Sodium Potassium Chloride Carbon Dioxide BUN Creatinine Glucose POC Glucose 159 H 134 H Lactic Acid Calcium AST Alkaline Phosphatase Lactate Dehydrogenase Total Creatine Kinase CK-MB (CK-2) C-Reactive Protein Total Protein Albumin Urine WBC (Auto) Urine Creatinine Urine Total Protein Coronavirus (PCR) 06/18/20 06/18/20 06/18/20 04:42 05:52 11:50 WBC RBC Hgb Hct RDW Lymph % (Auto) Kidder % (Auto) Eos % (Auto) Lymph # Kidder # Seg Neutrophils % Seg Neuts % (Manual) Lymphocytes % (Manual) Seg Neutrophils # Seg Neutrophils # Man Lymphocytes # (Manual) Monocytes # (Manual) D-Dimer Heparin Anti-Xa Level ABG pH ABG pO2 ABG HCO3 ABG O2 Saturation ABG Base Excess ABG Hemoglobin VBG pH Oxyhemoglobin Sodium Potassium Chloride Carbon Dioxide BUN 44 H Creatinine Glucose 115 H POC Glucose 171 H 167 H Lactic Acid Calcium AST Alkaline Phosphatase Lactate Dehydrogenase Total Creatine Kinase CK-MB (CK-2) C-Reactive Protein Total Protein Albumin Urine WBC (Auto) Urine Creatinine Urine Total Protein Coronavirus (PCR) Chest x-ray: other (none today) Allied health notes reviewed: RT
--- NOTE | 2020-06-18 13:31 | Progress Note ---
Assessment and Plan - Patient Problems (1) Acute kidney injury (AVANI) with acute tubular necrosis (ATN) Current Visit: Yes Status: Acute Plan to address problem: Kidney function has been improving. Patient is nonoliguric. Kidney function is still improving. Follow-up electrolytes and renal function (2) Hypernatremia Current Visit: Yes Status: Acute Plan to address problem: [place] on hold. Sodium has improved to normal. Continue free water intake and follow up Sodium (3) Acute hypoxemic respiratory failure Current Visit: Yes Status: Acute Plan to address problem: Being managed by pulmonary. S/p Extubation 06/12. Remains stable (4) Cardiac arrest Current Visit: Yes Status: Acute Plan to address problem: Patient is improving (5) Metabolic encephalopathy Current Visit: Yes Status: Acute Plan to address problem: Mental status is improving (6) Pneumonia due to COVID-19 virus Current Visit: Yes Status: Acute Plan to address problem: Patient has completed 5 days of Remdesevir. Completed course of steroids. Patient is improving (7) Cardiomyopathy Current Visit: No Status: Acute Qualifiers: Cardiomyopathy type: unspecified Qualified Code(s): I42.9 - Cardiomyopathy, unspecified Plan to address problem: OLasix has been stopped Patient is stable (8) Hyperglycemia due to type 2 diabetes mellitus Current Visit: No Status: Acute Qualifiers: Diabetes mellitus watermelon inspector insulin use: without watermelon inspector use Qualified Code(s): E11.65 - Type 2 diabetes mellitus with hyperglycemia Plan to address problem: Blood sugar management by primary attending Subjective Date of service: 06/18/20 Principal diagnosis: Ac hypoxemic resp failure; COVID-19; pneumonia; CHF; Pulm HTN; OHS; DM II Interval history: SARS Corovirus 2 positive status. Patient was not examined at the bedside today due to Personal protective equipment conservation due the COVID-19 pandemic and also to decrease exposure of [employer]. Reviewed clinical data, nurses notes, and Physician notes. Defer Physical examination to the Primary Attending MD. no events overnight Objective - Exam Narrative Exam: Patient was not examined today due to PPE conservation given the COVID-19 pandemic. Middle-aged female lying in bed - Vital Signs Vital signs: Vital Signs - 12hr 06/18/20 06/18/20 06/18/20 02:00 03:00 04:00 Temperature 98.9 F Pulse Rate 77 77 73 Pulse Rate [ 86 From Monitor] Respiratory 14 18 18 Rate Blood Pressure 157/66 154/61 158/65 O2 Sat by Pulse 99 99 100 Oximetry 06/18/20 06/18/20 06/18/20 05:00 06:00 06:20 Temperature Pulse Rate 71 77 Pulse Rate [ From Monitor] Respiratory 17 17 Rate Blood Pressure 165/66 161/68 161/68 O2 Sat by Pulse 99 99 Oximetry 06/18/20 06/18/20 06/18/20 06:21 07:00 07:57 Temperature 98.2 F Pulse Rate 71 Pulse Rate [ From Monitor] Respiratory 18 Rate Blood Pressure 161/68 133/51 O2 Sat by Pulse Oximetry 06/18/20 06/18/20 06/18/20 08:00 08:08 09:00 Temperature Pulse Rate 65 72 Pulse Rate [ 67 From Monitor] Respiratory 11 L 20 Rate Blood Pressure 123/51 126/53 O2 Sat by Pulse 99 100 98 Oximetry 06/18/20 06/18/20 06/18/20 09:53 09:54 10:00 Temperature Pulse Rate 72 72 70 Pulse Rate [ From Monitor] Respiratory 20 Rate Blood Pressure 126/53 126/53 136/58 O2 Sat by Pulse 98 Oximetry 06/18/20 06/18/20 11:45 12:49 Temperature 98.5 F Pulse Rate Pulse Rate [ From Monitor] Respiratory Rate Blood Pressure O2 Sat by Pulse 99 Oximetry - Lab 06/15/20 04:24 06/18/20 04:42 Most recent lab results ABG pH 7.409 pH Units (7.350-7.450) 06/12/20 09:20 ABG pCO2 42.0 mm Hg 06/12/20 09:20 ABG pO2 91.1 mm Hg (80.0-90.0) H 06/12/20 09:20 ABG HCO3 25.9 mmol/L (20.0-26.0) 06/12/20 09:20 ABG O2 Saturation 97.0 % (95.0-99.0) 06/12/20 09:20 Calcium 9.3 mg/dL (8.4-10.2) 06/18/20 04:42 Urine Creatinine 82.2 mg/dL (0.1-20.0) H 06/06/20 04:00 Urine Sodium 20 mmol/L 06/06/20 04:00 Urine Total Protein 196 mg/dL (5-11.8) H 06/06/20 04:00 Medications & Allergies - Medications Allergies/Adverse Reactions: Allergies No Known Allergies Allergy (Verified 01/21/20 12:28) Home Medications: Home Medications Medication Instructions Recorded Confirmed Last Taken Type AtorvaSTATin [Lipitor] 20 mg PO QHS 05/12/20 05/29/20 Unknown History lisinopriL [Zestril TAB] 40 mg PO QDAY 05/12/20 05/29/20 Unknown History metFORMIN [Glucophage] 850 mg PO BID 05/12/20 05/29/20 Unknown History Acetaminophen [Acetaminophen TAB] 650 mg PO Q4H PRN tablet 05/13/20 05/29/20 Unknown Rx Dicyclomine [Bentyl] 20 mg PO BID #20 tablet 05/13/20 05/29/20 Unknown Rx Famotidine [Pepcid] 20 mg PO BID #30 tablet 05/13/20 05/29/20 Unknown Rx carvediloL [Coreg] 6.25 mg PO BID #60 05/13/20 05/29/20 Unknown Rx Active Medications: Generic Name Dose Route Start Last Admin Trade Name Freq PRN Reason Stop Dose Admin Acetaminophen 650 mg 06/09/20 10:57 06/09/20 20:28 Tylenol FEEDTUBE 650 mg Q6H PRN Administration Fever >101 Amlodipine Besylate 10 mg 06/02/20 11:00 06/18/20 09:53 Amlodipine PO 10 mg DAILY NELSON Administration Lipase/Protease/Amylase 1 each 05/29/20 13:39 Pancremu Lawson 10,500 Unit FEEDTUBE PRN PRN For Clogged Feeding Tube Carvedilol 12.5 mg 06/03/20 10:00 06/18/20 09:54 Coreg PO 12.5 mg BID NELSON Administration Clonidine HCl 0.1 mg 06/04/20 06:00 06/18/20 06:20 Catapres PO 0.1 mg Q8HR NELSON Administration Clonidine HCl 0.2 mg 06/04/20 06:00 06/18/20 06:21 Catapres PO 0.2 mg Q8HR NELSON Administration Glycopyrrolate 2 mg 06/09/20 14:00 06/18/20 08:39 Glycopyrrolate PO 2 mg TID NELSON Administration Hydralazine HCl 50 mg 06/03/20 09:00 06/18/20 06:21 Apresoline PO 50 mg Q8HR NELSON Administration Hydrophilic Ointment 1 applic 05/28/20 13:49 Vaseline Lip Therapy TP Q2HR PRN Dry Lips Heparin Sodium/Sodium Chloride 25,000 unit in 500 mls @ 30 mls/hr 05/29/20 15:00 06/18/20 03:40 Heparin/ 0.45% Nacl-25,000 Unit/500 Ml IV 1,500 units/hr TITR NELSON 30 mls/hr Administration Protocol 1,500 UNITS/HR Insulin Glargine 10 units 06/08/20 22:00 06/17/20 22:30 Lantus SUB-Q 10 units QHS NELSON Administration Insulin Human Lispro 0 unit 05/29/20 18:00 06/18/20 06:21 Humalog SUB-Q 3 unit Q6H NELSON Administration Protocol Labetalol HCl 20 mg 06/03/20 09:00 06/08/20 23:51 Labetalol IV 20 mg Q4H PRN Administration HYPERTENSION Lansoprazole 30 mg 06/05/20 22:00 06/18/20 09:57 Prevacid Solutab FEEDTUBE 30 mg BID NELSON Administration Levetiracetam 500 mg 06/16/20 11:00 06/18/20 09:57 Keppra PO 500 mg BID NELSON Administration Metoclopramide HCl 10 mg 06/10/20 20:00 06/18/20 08:39 Reglan IV 10 mg Q6H NELSON Administration Multi-Ingred Cream/Lotion/Oil/Oint 1 applic 05/28/20 13:49 Artificial Tears Ophth Oint OU Q4HR PRN Dry Eye(s) Ondansetron HCl 4 mg 06/02/20 09:00 06/09/20 16:48 Zofran IV 4 mg Q8H PRN Administration Nausea And Vomiting Quetiapine Fumarate 50 mg 06/14/20 22:00 06/17/20 22:29 Seroquel PO 50 mg QHS NELSON Administration Scopolamine 1 each 06/05/20 14:00 06/17/20 09:39 Transderm-Scop TD 1 each Q3D NELSON Administration Senna 17.6 mg 06/03/20 10:00 06/18/20 09:55 Senokot FEEDTUBE 17.6 mg BID NELSON Administration Simple Syrup 15 ml 05/29/20 13:39 Simple Syrup FEEDTUBE PRN PRN Hypoglycemia Simple Syrup 30 ml 05/29/20 13:39 Simple Syrup FEEDTUBE PRN PRN Hypoglycemia Sodium Bicarbonate 325 mg 05/29/20 13:39 Sodium Bicarbonate FEEDTUBE PRN PRN For Clogged Feeding Tube Sodium Bicarbonate 650 mg 06/06/20 10:00 06/18/20 09:54 Sodium Bicarbonate PO 650 mg BID NELSON Administration Sodium Chloride 10 ml 05/28/20 22:00 06/18/20 09:55 Sodium Chloride Flush Syringe 10 Ml IV 10 ml BID NELSON Administration Sodium Chloride 10 ml 05/28/20 19:08 06/16/20 17:50 Sodium Chloride Flush Syringe 10 Ml IV 10 ml PRN PRN Administration LINE FLUSH
--- NOTE | 2020-06-18 14:12 | Progress Note ---
Assessment and Plan Cultures: Coronavirus PCR: Positive 05/28/2020 blood culture: no growth 05/28/2020 tracheal aspirate: Usual respiratory bobo 05/28/2020 urine culture: No growth 06/03/2020 urine culture: No growth Sputum culture: Klebsiella A/P: 64-year-old female with hypertension, diastolic CHF, pulmonary hypertension, diabetes, obesity hypoventilation syndrome was admitted to the emergency room after she called EMS due to difficulty breathing. On the way to the hospital, patient developed cardiac arrest and was treated as per ACLS protocol: #Bilateral pneumonia: Secondary to COVID-19. Completed 5 days of IV Remdesivir 06/02/2020. #Acute hypoxic respiratory failure: On HFNC #Klebsiella pneumonia: S to cefepime, continue #Status post PEA arrest, encephalopathy #HF: EF 45-50% #Mild LFT elevation: likely from COVID-19. #Mild AVANI Recs: Continue to monitor. Continue cefepime. Stop date today 06/18/2020. Keisha Chaudhari MD [facility] ([facility]) M: [phone] O: [phone] F: [phone] Subjective Date of service: 06/18/20 Principal diagnosis: Ac hypoxemic resp failure; COVID-19; pneumonia; CHF; Pulm HTN; OHS; DM II Interval history: Afebrile. Normal white count now. Objective - Exam Narrative Exam: Physical exam deferred due to PPE conservation strategy. Please refer to primary team's note. - Constitutional Vitals: Vital Signs Temp Pulse Resp BP Pulse Ox 98.5 F 70 20 138/63 99 06/18/20 11:45 06/18/20 13:51 06/18/20 10:00 06/18/20 13:51 06/18/20 12:49 Temperature -Last 24 Hours Temperature 98.5 F Temperature 98.2 F Temperature 98.9 F Temperature 99.0 F Temperature 98.9 F Temperature 97.9 F - Labs CBC & Chem 7: 06/15/20 04:24 06/18/20 04:42 Labs: Abnormal lab results 06/17/20 06/17/20 06/17/20 Range/Units 16:43 18:18 23:08 Heparin Anti-Xa Level 0.73 H (0.3-0.7) U.I./ml BUN (7-17) mg/dL Glucose (65-100) mg/dL POC Glucose 159 H 134 H (70-105) 06/17/20 06/18/20 06/18/20 Range/Units 23:16 04:42 05:52 Heparin Anti-Xa Level 0.71 H (0.3-0.7) U.I./ml BUN 44 H (7-17) mg/dL Glucose 115 H (65-100) mg/dL POC Glucose 171 H (70-105) 06/18/20 Range/Units 11:50 Heparin Anti-Xa Level (0.3-0.7) U.I./ml BUN (7-17) mg/dL Glucose (65-100) mg/dL POC Glucose 167 H (70-105)
[2020-06-18] MEDS: QUEtiapine 25 MG TAB PO SCH (23:07)
[2020-06-18] MEDS: INSULIN GLARGINE 100 UNITS/ML SUB-Q SCH (23:55)
[2020-06-19] MEDS: INSULIN LISPRO 100 UNIT/ML VIAL 3 mL SUB-Q SCH ×4 (01:03→18:55)
[2020-06-19] MEDS: METOCLOPRAMIDE 10 MG/2 ML INJ IV SCH ×4 (02:44→22:54)
[2020-06-19] MEDS: cloNIDine 0.2 MG TAB PO SCH ×3 (05:20→22:55)
[2020-06-19] MEDS: hydrALAZINE 25 MG TAB PO SCH ×3 (05:20→22:55)
--- NOTE | 2020-06-19 08:53 | Progress Note ---
Assessment and Plan - Patient Problems (1) Acute kidney injury (AVANI) with acute tubular necrosis (ATN) Current Visit: Yes Status: Acute Plan to address problem: Kidney function has been improving. Patient is nonoliguric. Kidney function is still improving. No labs today. Follow-up electrolytes and renal function (2) Hypernatremia Current Visit: Yes Status: Acute Plan to address problem: [place] on hold. Sodium has improved to normal. Continue free water intake and follow up Sodium (3) Acute hypoxemic respiratory failure Current Visit: Yes Status: Acute Plan to address problem: Being managed by pulmonary. S/p Extubation 06/12. Remains stable. Discharge planning by primary attending (4) Cardiac arrest Current Visit: Yes Status: Acute Plan to address problem: Patient is improving (5) Metabolic encephalopathy Current Visit: Yes Status: Acute Plan to address problem: Mental status is improving (6) Pneumonia due to COVID-19 virus Current Visit: Yes Status: Acute Plan to address problem: Patient has completed 5 days of Remdesevir. Completed course of steroids. Patient is improving (7) Cardiomyopathy Current Visit: No Status: Acute Qualifiers: Cardiomyopathy type: unspecified Qualified Code(s): I42.9 - Cardiomyopathy, unspecified Plan to address problem: OLasix has been stopped Patient is stable (8) Hyperglycemia due to type 2 diabetes mellitus Current Visit: No Status: Acute Qualifiers: Diabetes mellitus senior care insulin use: without senior care use Qualified Code(s): E11.65 - Type 2 diabetes mellitus with hyperglycemia Plan to address problem: Blood sugar management by primary attending Subjective Date of service: 06/19/20 Principal diagnosis: Ac hypoxemic resp failure; COVID-19; pneumonia; CHF; Pulm HTN; OHS; DM II Interval history: Patient seen lying in bed. She has no complaints. She denies any chest pain, shortness of breath. No nausea vomiting. She is on oxygen via nasal cannula. NG tube is intact Objective - Exam Narrative Exam: Obese middle-aged female lying in bed in no acute distress on oxygen via nasal cannula HEENT: NCAT, nasogastric tube intact Neck: Supple, no venous distention CVS: S1S2 RRR with no murmur, rub or gallop Chest: Bilateral rhonchi Abdomen: Protuberant, soft, nontender, no organomegaly, bowel sounds are present Extremities: Mild edema upper extremities and thighs Skin warm and dry Genitourinary deferred Neuro: Awake, no focal deficits - Vital Signs Vital signs: Vital Signs - 12hr 06/18/20 06/19/20 06/19/20 23:01 00:00 06:20 Temperature 98.8 F 99.5 F Pulse Rate 88 71 Respiratory 20 16 20 Rate Blood Pressure 174/60 143/56 O2 Sat by Pulse 100 100 Oximetry 06/19/20 08:00 Temperature Pulse Rate Respiratory Rate Blood Pressure O2 Sat by Pulse 99 Oximetry - Lab 06/15/20 04:24 06/18/20 04:42 Most recent lab results ABG pH 7.409 pH Units (7.350-7.450) 06/12/20 09:20 ABG pCO2 42.0 mm Hg 06/12/20 09:20 ABG pO2 91.1 mm Hg (80.0-90.0) H 06/12/20 09:20 ABG HCO3 25.9 mmol/L (20.0-26.0) 06/12/20 09:20 ABG O2 Saturation 97.0 % (95.0-99.0) 06/12/20 09:20 Calcium 9.3 mg/dL (8.4-10.2) 06/18/20 04:42 Urine Creatinine 82.2 mg/dL (0.1-20.0) H 06/06/20 04:00 Urine Sodium 20 mmol/L 06/06/20 04:00 Urine Total Protein 196 mg/dL (5-11.8) H 06/06/20 04:00 Medications & Allergies - Medications Allergies/Adverse Reactions: Allergies No Known Allergies Allergy (Verified 01/21/20 12:28) Home Medications: Home Medications Medication Instructions Recorded Confirmed Last Taken Type AtorvaSTATin [Lipitor] 20 mg PO QHS 05/12/20 05/29/20 Unknown History lisinopriL [Zestril TAB] 40 mg PO QDAY 05/12/20 05/29/20 Unknown History metFORMIN [Glucophage] 850 mg PO BID 05/12/20 05/29/20 Unknown History Acetaminophen [Acetaminophen TAB] 650 mg PO Q4H PRN tablet 05/13/20 05/29/20 Unknown Rx Dicyclomine [Bentyl] 20 mg PO BID #20 tablet 05/13/20 05/29/20 Unknown Rx Famotidine [Pepcid] 20 mg PO BID #30 tablet 05/13/20 05/29/20 Unknown Rx carvediloL [Coreg] 6.25 mg PO BID #60 05/13/20 05/29/20 Unknown Rx Active Medications: Generic Name Dose Route Start Last Admin Trade Name Freq PRN Reason Stop Dose Admin Acetaminophen 650 mg 06/09/20 10:57 06/09/20 20:28 Tylenol FEEDTUBE 650 mg Q6H PRN Administration Fever >101 Amlodipine Besylate 10 mg 06/02/20 11:00 06/18/20 09:53 Amlodipine PO 10 mg DAILY NELSON Administration Lipase/Protease/Amylase 1 each 05/29/20 13:39 Pancreaze 10,500 Unit FEEDTUBE PRN PRN For Clogged Feeding Tube Carvedilol 12.5 mg 06/03/20 10:00 06/18/20 23:09 Coreg PO 12.5 mg BID NELSON Administration Clonidine HCl 0.2 mg 06/04/20 06:00 06/19/20 05:20 Catapres PO 0.2 mg Q8HR NELSON Administration Glycopyrrolate 2 mg 06/09/20 14:00 06/18/20 23:06 Glycopyrrolate PO 2 mg TID NELSON Administration Hydralazine HCl 50 mg 06/03/20 09:00 06/19/20 05:20 Apresoline PO 50 mg Q8HR NELSON Administration Hydrophilic Ointment 1 applic 05/28/20 13:49 Vaseline Lip Therapy TP Q2HR PRN Dry Lips Heparin Sodium/Sodium Chloride 25,000 unit in 500 mls @ 30 mls/hr 05/29/20 15:00 06/18/20 20:22 Heparin/ 0.45% Nacl-25,000 Unit/500 Ml IV 1,500 units/hr TITR NELSON 30 mls/hr Administration Protocol 1,500 UNITS/HR Insulin Glargine 10 units 06/08/20 22:00 06/18/20 23:55 Lantus SUB-Q 10 units QHS NELSON Administration Insulin Human Lispro 0 unit 05/29/20 18:00 06/19/20 06:13 Humalog SUB-Q 4 unit Q6H NELSON Administration Protocol Labetalol HCl 20 mg 06/03/20 09:00 06/08/20 23:51 Labetalol IV 20 mg Q4H PRN Administration HYPERTENSION Lansoprazole 30 mg 06/05/20 22:00 06/18/20 23:09 Prevacid Solutab FEEDTUBE 30 mg BID NELSON Administration Levetiracetam 500 mg 06/16/20 11:00 06/18/20 23:08 Keppra PO 500 mg BID NELSON Administration Metoclopramide HCl 10 mg 06/10/20 20:00 06/19/20 02:44 Reglan IV 10 mg Q6H NELSON Administration Multi-Ingred Cream/Lotion/Oil/Oint 1 applic 05/28/20 13:49 Artificial Tears Ophth Oint OU Q4HR PRN Dry Eye(s) Ondansetron HCl 4 mg 06/02/20 09:00 06/09/20 16:48 Zofran IV 4 mg Q8H PRN Administration Nausea And Vomiting Quetiapine Fumarate 50 mg 06/14/20 22:00 06/18/20 23:07 Seroquel PO 50 mg QHS NELSON Administration Scopolamine 1 each 06/05/20 14:00 06/17/20 09:39 Transderm-Scop TD 1 each Q3D NELSON Administration Senna 17.6 mg 06/03/20 10:00 06/18/20 23:09 Senokot FEEDTUBE 17.6 mg BID NELSON Administration Simple Syrup 15 ml 05/29/20 13:39 Simple Syrup FEEDTUBE PRN PRN Hypoglycemia Simple Syrup 30 ml 05/29/20 13:39 Simple Syrup FEEDTUBE PRN PRN Hypoglycemia Sodium Bicarbonate 325 mg 05/29/20 13:39 Sodium Bicarbonate FEEDTUBE PRN PRN For Clogged Feeding Tube Sodium Bicarbonate 650 mg 06/06/20 10:00 06/18/20 23:08 Sodium Bicarbonate PO 650 mg BID NELSON Administration Sodium Chloride 10 ml 05/28/20 22:00 06/18/20 23:11 Sodium Chloride Flush Syringe 10 Ml IV 10 ml BID NELSON Administration Sodium Chloride 10 ml 05/28/20 19:08 06/16/20 17:50 Sodium Chloride Flush Syringe 10 Ml IV 10 ml PRN PRN Administration LINE FLUSH
[2020-06-19] MEDS: SODIUM BICARBONATE 650 MG TAB PO SCH ×2 (09:12→22:55)
[2020-06-19] MEDS: amLODIPine 10 MG TAB PO SCH (09:12)
[2020-06-19] MEDS: SENNOSIDES ORAL LIQD 8.8 MG/5 ML ORAL LIQD FEEDTUBE SCH ×2 (09:12→22:55)
[2020-06-19] MEDS: carvediloL 12.5 MG TAB PO SCH ×2 (09:12→22:48)
[2020-06-19] MEDS: levETIRAcetam 500 MG/5 ML ORAL LIQD PO SCH ×2 (09:13→22:48)
[2020-06-19] MEDS: LANSOPRAZOLE 30 MG SOLUTAB FEEDTUBE SCH ×2 (09:13→22:48)
[2020-06-19] MEDS: GLYCOPYRROLATE 2 MG TAB PO SCH ×3 (09:13→22:47)
--- NOTE | 2020-06-19 10:49 | Progress Note ---
Assessment and Plan Assessment and plan: --COVID-19 positive 05/28/2020 --Superficial left cephalic vein DVT/elevated D-dimers[COVID 19] Patient is on heparin drip from 05/29/20 D-dimers improved [phone] DC heparin drip, start Eliquis 5 mg twice a day for 1 more week[per ID] -- Acute hypoxemic respiratory failure From COVID-19 viral infection extubated on , on high flow o2 -- s/p PEA Cardiac arrest Cardiology team on board Conservative management as per cardiology -- Acute metabolic encephalopathy, POA likely from sepsis and s/p cardiac arrest with possible anoxic injury -- Acute renal failure: likely ATN Cr slowly improving Avoid ACEI and other nephrotoxic medications Nephrology following -- Coronavirus infection with b/l PNA Completed remdesivir on 06/02 Completed dexamethasone - Last dose 06/07 ID recs appreciated. --Klebsiella pneumonia: Completed antibiotics --CHF (congestive heart failure) Cardiology following. Ef 45% -- Coffee ground emesis -Stress ulcers Possible stress ulcers, On PPI H/H remains stable GI evaluation if Hb drops again -- Hypertension; moderate control Continue amlodipine, coreg, clonidine and hydralazine --Mild LFT elevation: likely from COVID-19. -- DVT prophylaxis Eliquis, SCD to bilateral lower extremities while in bed -- Advance care planning Patient is full code. poor prognosis Patient is critically ill with multiple medical problems Poor prognosis Plan of care reviewed with the patient and his nurse History Interval history: I have seen and examined the patient at the bedside this morning Patient's chart and medications reviewed Patient is morbidly obese minimally communicative in mild distress On high flow oxygen Vital signs noted Hospitalist Physical - Constitutional Vitals: Temp Pulse Resp BP Pulse Ox 99.5 F 71 20 143/56 99 06/19/20 06:20 06/19/20 09:12 06/19/20 06:20 06/19/20 09:12 06/19/20 08:00 General appearance: Present: mild distress, well-nourished, obese (Morbidly obese), other (On high flow oxygen) - EENT Eyes: Present: PERRL, EOM intact - Neck Neck: Present: supple, normal ROM - Respiratory Respiratory effort: normal Respiratory: bilateral: diminished, rhonchi, negative: rales, wheezing - Cardiovascular Rhythm: regular Heart Sounds: Present: S1 & S2 - Extremities Extremities: no ischemia, No edema - Abdominal General gastrointestinal: soft, non-tender, non-distended, normal bowel sounds - Integumentary Integumentary: Present: clear, warm - Psychiatric Psychiatric: other (Noncommunicative) - Neurologic Neurologic: other (Noncommunicative) Results - Labs CBC & Chem 7: 06/15/20 04:24 06/18/20 04:42 Labs: Laboratory Last Values WBC 8.8 K/mm3 (4.5-11.0) 06/15/20 04:24 RBC 2.75 M/mm3 (3.65-5.03) L 06/15/20 04:24 Hgb 7.9 gm/dl (10.1-14.3) L 06/15/20 04:24 Hct 24.0 % (30.3-42.9) L 06/15/20 04:24 MCV 87 fl (79-97) 06/15/20 04:24 MCH 29 pg (28-32) 06/15/20 04:24 MCHC 33 % (30-34) 06/15/20 04:24 RDW 16.4 % (13.2-15.2) H 06/15/20 04:24 Plt Count 203 K/mm3 (140-440) 06/15/20 04:24 Lymph % (Auto) 12.9 % (13.4-35.0) L 06/15/20 04:24 [place] % (Auto) 8.7 % (0.0-7.3) H 06/15/20 04:24 Eos % (Auto) 4.6 % (0.0-4.3) H 06/15/20 04:24 Baso % (Auto) 0.6 % (0.0-1.8) 06/15/20 04:24 Lymph # 1.1 K/mm3 (1.2-5.4) L 06/15/20 04:24 [place] # 0.8 K/mm3 (0.0-0.8) 06/15/20 04:24 Eos # 0.4 K/mm3 (0.0-0.4) 06/15/20 04:24 Baso # 0.1 K/mm3 (0.0-0.1) 06/15/20 04:24 Add Manual Diff Complete 06/09/20 05:16 Total Counted 100 06/09/20 05:16 Seg Neutrophils % 73.2 % (40.0-70.0) H 06/15/20 04:24 Seg Neuts % (Manual) 85.0 % (40.0-70.0) H 06/09/20 05:16 Band Neutrophils % 0 % 06/09/20 05:16 Lymphocytes % (Manual) 7.0 % (13.4-35.0) L 06/09/20 05:16 Reactive Lymphs % (Man) 0 % 06/09/20 05:16 Monocytes % (Manual) 7.0 % (0.0-7.3) 06/09/20 05:16 Eosinophils % (Manual) 1.0 % (0.0-4.3) 06/09/20 05:16 Basophils % (Manual) 0 % (0.0-1.8) 06/09/20 05:16 Metamyelocytes % 0 % 06/09/20 05:16 Myelocytes % 0 % 06/09/20 05:16 Promyelocytes % 0 % 06/09/20 05:16 Blast Cells % 0 % 06/09/20 05:16 Nucleated RBC % Not Reportable 06/09/20 05:16 Seg Neutrophils # 6.4 K/mm3 (1.8-7.7) 06/15/20 04:24 Seg Neutrophils # Man 16.2 K/mm3 (1.8-7.7) H 06/09/20 05:16 Band Neutrophils # 0.0 K/mm3 06/09/20 05:16 Lymphocytes # (Manual) 1.3 K/mm3 (1.2-5.4) 06/09/20 05:16 Abs React Lymphs (Man) 0.0 K/mm3 06/09/20 05:16 Monocytes # (Manual) 1.3 K/mm3 (0.0-0.8) H 06/09/20 05:16 Eosinophils # (Manual) 0.2 K/mm3 (0.0-0.4) 06/09/20 05:16 Basophils # (Manual) 0.0 K/mm3 (0.0-0.1) 06/09/20 05:16 Metamyelocytes # 0.0 K/mm3 06/09/20 05:16 Myelocytes # 0.0 K/mm3 06/09/20 05:16 Promyelocytes # 0.0 K/mm3 06/09/20 05:16 Blast Cells # 0.0 K/mm3 06/09/20 05:16 WBC Morphology Not Reportable 06/09/20 05:16 Hypersegmented Neuts Not Reportable 06/09/20 05:16 Hyposegmented Neuts Not Reportable 06/09/20 05:16 Hypogranular Neuts Not Reportable 06/09/20 05:16 Smudge Cells Not Reportable 06/09/20 05:16 Toxic Granulation Not Reportable 06/09/20 05:16 Toxic Vacuolation Not Reportable 06/09/20 05:16 Dohle Bodies Not Reportable 06/09/20 05:16 Pelger-Huet Anomaly Not Reportable 06/09/20 05:16 Sanjuanita Rods Not Reportable 06/09/20 05:16 Platelet Estimate Consistent w auto 06/09/20 05:16 Clumped Platelets Not Reportable 06/09/20 05:16 Plt Clumps, EDTA Not Reportable 06/09/20 05:16 Large Platelets Not Reportable 06/09/20 05:16 Giant Platelets Not Reportable 06/09/20 05:16 Platelet Satelliting Not Reportable 06/09/20 05:16 Plt Morphology Comment Not Reportable 06/09/20 05:16 RBC Morphology Not Reportable 06/09/20 05:16 Dimorphic RBCs Not Reportable 06/09/20 05:16 Polychromasia Rare 06/09/20 05:16 Hypochromasia Few 06/09/20 05:16 Poikilocytosis Not Reportable 06/09/20 05:16 Anisocytosis Few 06/09/20 05:16 Microcytosis Not Reportable 06/09/20 05:16 Macrocytosis Not Reportable 06/09/20 05:16 Spherocytes Not Reportable 06/09/20 05:16 Pappenheimer Bodies Not Reportable 06/09/20 05:16 Sickle Cells Not Reportable 06/09/20 05:16 Target Cells Not Reportable 06/09/20 05:16 Tear Drop Cells Not Reportable 06/09/20 05:16 Ovalocytes Not Reportable 06/09/20 05:16 Helmet Cells Not Reportable 06/09/20 05:[address] [place] Bodies Not Reportable 06/09/20 05:16 [place] Rings Not Reportable 06/09/20 05:16 Julia Cells Not Reportable 06/09/20 05:16 Bite Cells Not Reportable 06/09/20 05:16 Crenated Cell Not Reportable 06/09/20 05:16 Elliptocytes Not Reportable 06/09/20 05:16 Acanthocytes (Spur) Not Reportable 06/09/20 05:16 Rouleaux Not Reportable 06/09/20 05:16 Hemoglobin C Crystals Not Reportable 06/09/20 05:16 Schistocytes Not Reportable 06/09/20 05:16 Malaria parasites Not Reportable 06/09/20 05:16 Kev Bodies Not Reportable 06/09/20 05:16 Hem Pathologist Commnt No 06/09/20 05:16 PT 14.2 Sec. (12.2-14.9) 05/29/20 15:10 INR 1.08 (0.87-1.13) 05/29/20 15:10 APTT 27.2 Sec. (24.2-36.6) 05/29/20 15:10 D-Dimer 414.52 ng/mlDDU (0-234) H 06/04/20 04:19 Heparin Anti-Xa Level 0.33 U.I./ml (0.3-0.7) 06/18/20 08:23 ABG pH 7.409 pH Units (7.350-7.450) 06/12/20 09:20 POC ABG pCO2 37.4 mmHg (32.0-48.0) 06/11/20 11:11 ABG pCO2 42.0 mm Hg 06/12/20 09:20 POC ABG pO2 101.9 mmHg (83-108) 06/11/20 11:11 ABG pO2 91.1 mm Hg (80.0-90.0) H 06/12/20 09:20 ABG HCO3 25.9 mmol/L (20.0-26.0) 06/12/20 09:20 ABG O2 Saturation 97.0 % (95.0-99.0) 06/12/20 09:20 ABG O2 Content 19.9 (0.0-44) 06/12/20 09:20 ABG Base Excess 1.1 mmol/L (-2.0-3.0) 06/12/20 09:20 ABG Hemoglobin 14.9 gm/dl (12.0-16.0) 06/12/20 09:20 ABG Carboxyhemoglobin 1.5 % (0.0-5.0) 06/12/20 09:20 ABG Methemoglobin 0.7 % (0.0-1.5) 06/12/20 09:20 VBG pH 7.152 (7.320-7.420) L* 05/28/20 13:47 Oxyhemoglobin 94.8 % (95.0-99.0) L 06/12/20 09: FiO2 40 % 06/12/20 09:20 Sodium 142 mmol/L (137-145) 06/18/20 04:42 Potassium 3.9 mmol/L (3.6-5.0) 06/18/20 04:42 Chloride 104.1 mmol/L (98-107) 06/18/20 04:42 Carbon Dioxide 26 mmol/L (22-30) 06/18/20 04:42 Anion Gap 16 mmol/L 06/18/20 04:42 BUN 44 mg/dL (7-17) H 06/18/20 04:42 Creatinine 1.1 mg/dL (0.6-1.2) 06/18/20 04:42 Estimated GFR 50 ml/min 06/18/20 04:42 BUN/Creatinine Ratio 40 % 06/18/20 04:42 Glucose 115 mg/dL (65-100) H 06/18/20 04:42 POC Glucose 175 (70-105) H 06/19/20 07:52 Lactic Acid 1.90 mmol/L (0.7-2.0) 05/28/20 14:46 Calcium 9.3 mg/dL (8.4-10.2) 06/18/20 04:42 Ferritin 100.7 ng/mL (10.0-200.0) 06/04/20 04:19 Total Bilirubin 0.20 mg/dL (0.1-1.2) 06/09/20 05:16 AST 16 units/L (5-40) 06/09/20 05:16 ALT 14 units/L (7-56) 06/09/20 05:16 Alkaline Phosphatase < 5 units/L (35-129) L 06/09/20 05:16 Lactate Dehydrogenase 271 units/L (91-180) H 06/04/20 04:19 Total Creatine Kinase 301 units/L (30-135) H 05/28/20 13:47 CK-MB (CK-2) 4.3 ng/mL (0.0-4.0) H 05/28/20 13:47 CK-MB (CK-2) Rel Index 1.4 (0-4) 05/28/20 13:47 C-Reactive Protein 2.20 mg/dL (0.00-1.30) H 06/04/20 04:19 Total Protein 4.6 g/dL (6.3-8.2) L 06/09/20 05:16 Albumin < 0.2 g/dL (3.9-5) L 06/09/20 05:16 Albumin/Globulin Ratio 1.0 % 06/09/20 05:16 Procalcitonin 0.46 ng/mL (<0.15) 06/10/20 05:49 Urine Color Yellow (Yellow) 06/06/20 04:00 Urine Turbidity Cloudy (Clear) 06/06/20 04:00 Urine pH 5.0 (5.0-7.0) 06/06/20 04:00 Ur Specific [place] 1.012 (1.003-1.030) 06/06/20 04:00 Urine Protein 100 mg/dl mg/dL (Negative) 06/06/20 04:00 Urine Glucose (UA) 50 mg/dL (Negative) 06/06/20 04:00 Urine Ketones Neg mg/dL (Negative) 06/06/20 04:00 Urine Blood Sm (Negative) 06/06/20 04:00 Urine Nitrite Neg (Negative) 06/06/20 04:00 Urine Bilirubin Neg (Negative) 06/06/20 04:00 Urine Urobilinogen < 2.0 mg/dL (<2.0) 06/06/20 04:00 Ur Leukocyte Esterase Neg (Negative) 06/06/20 04:00 Urine WBC (Auto) 15.0 /HPF (0.0-6.0) H 06/06/20 04:00 Urine RBC (Auto) 23.0 /HPF (0.0-6.0) 06/06/20 04:00 U Epithel Cells (Auto) 8.0 /HPF (0-13.0) 06/06/20 04:00 Urine Bacteria (Auto) 2+ /HPF (Negative) 06/06/20 04:00 Amorphous Crystals 1+ 06/06/20 04:00 Hyaline Casts 16 /LPF 06/06/20 04:00 Urine Mucus 2+ /HPF 06/06/20 04:00 Urine Yeast (Budding) 2+ /HPF 06/03/20 Unknown Urine Creatinine 82.2 mg/dL (0.1-20.0) H 06/06/20 04:00 Urine Sodium 20 mmol/L 06/06/20 04:00 Urine Total Protein 196 mg/dL (5-11.8) H 06/06/20 04:00 Coronavirus (PCR) Positive (Negative) A 05/28/20 Unknown - Diagnostic Impressions Diagnostic Impressions: Echocardiogram Limited Views 05/29/20 13:52 Transthoracic Echocardiogram Indication: Pulm Embolus BP: 169/76 HR: 85 Conclusions *Limited study for RV size post cardiopulmonar arrest. *RV is only slightly dilated, no significant difference from prior echo 05/13/2020. *Global left ventricular systolic function is at the lower limits of normal. *The estimated ejection fraction is 45-50%. *Mild to moderate concentric left ventricular hypertrophy is observed. *The left and right atria are both mild to moderately dilated. Findings Left Ventricle: The left ventricular chamber size is mildly dilated. Mild to moderate concentric left ventricular hypertrophy is observed. Global left ventricular systolic function is at the lower limits of normal. The estimated ejection fraction is 45-50%. Left Atrium: The left atrium is mild to moderately dilated. Right Ventricle: The right ventricle is slightly dilated. Right Atrium: The right atrium is mild to moderately dilated. Aortic Valve: The aortic valve leaflets are moderately thickened. Mitral Valve: There is mitral annular calcification. The mitral valve leaflets are moderately thickened. Tricuspid Valve: The tricuspid valve leaflets are mildly thickened. Pericardium: A trivial pericardial effusion is visualized. NDUM: 05/29/20 1808 Amended Report Transthoracic Echocardiogram Indication: Pulm Embolus BP: 169/76 HR: 85 Conclusions *Limited study for RV size post cardiopulmonary arrest. *RV is only slightly dilated, no significant difference from prior echo 05/13/2020. *Global left ventricular systolic function is at the lower limits of normal. *The estimated ejection fraction is 45-50%. *Mild to moderate concentric left ventricular hypertrophy is observed. *The left and right atria are both mild to moderately dilated. Findings Left Ventricle: The left ventricular chamber size is mildly dilated. Mild to moderate concentric left ventricular hypertrophy is observed. Global left ventricular systolic function is at the lower limits of normal. The estimated ejection fraction is 45-50%. Left Atrium: The left atrium is mild to moderately dilated. Right Ventricle: The right ventricle is slightly dilated. Right Atrium: The right atrium is mild to moderately dilated. Aortic Valve: The aortic valve leaflets are moderately thickened. Mitral Valve: There is mitral annular calcification. The mitral valve leaflets are moderately thickened. Tricuspid Valve: The tricuspid valve leaflets are mildly thickened. Pericardium: A trivial pericardial effusion is visualized. Helm/IV: Voiding Method Incontinent IV Catheter Type [Right Hand] Peripheral IV IV Catheter Type [Right Wrist] Not found on patient IV Catheter Type [Left Hand] INT / Saline Lock IV Catheter Type [Left INT / Saline Lock Antecubital] IV Catheter Type [Right Peripheral IV Forearm] IV Catheter Type [Left Leg] Intra-osseous Active Medications - Current Medications Current Medications: Generic Name Dose Route Start Last Admin Trade Name Freq PRN Reason Stop Dose Admin Acetaminophen 650 mg 06/09/20 10:57 06/09/20 20:28 Tylenol FEEDTUBE 650 mg Q6H PRN Administration Fever >101 Amlodipine Besylate 10 mg 06/02/20 11:00 06/19/20 09:12 Amlodipine PO 10 mg DAILY NELSON Administration Lipase/Protease/Amylase 1 each 05/29/20 13:39 Pancremu Lawson 10,500 Unit FEEDTUBE PRN PRN For Clogged Feeding Tube Carvedilol 12.5 mg 06/03/20 10:00 06/19/20 09:12 Coreg PO 12.5 mg BID NELSON Administration Clonidine HCl 0.2 mg 06/04/20 06:00 06/19/20 05:20 Catapres PO 0.2 mg Q8HR NELSON Administration Glycopyrrolate 2 mg 06/09/20 14:00 06/19/20 09:13 Glycopyrrolate PO 2 mg TID NELSON Administration Hydralazine HCl 50 mg 06/03/20 09:00 06/19/20 05:20 Apresoline PO 50 mg Q8HR NELSON Administration Hydrophilic Ointment 1 applic 05/28/20 13:49 Vaseline Lip Therapy TP Q2HR PRN Dry Lips Heparin Sodium/Sodium Chloride 25,000 unit in 500 mls @ 30 mls/hr 05/29/20 15:00 06/18/20 20:22 Heparin/ 0.45% Nacl-25,000 Unit/500 Ml IV 1,500 units/hr TITR NELSON 30 mls/hr Administration Protocol 1,500 UNITS/HR Insulin Glargine 10 units 06/08/20 22:00 06/18/20 23:55 Lantus SUB-Q 10 units QHS NELSON Administration Insulin Human Lispro 0 unit 05/29/20 18:00 06/19/20 06:13 Humalog SUB-Q 4 unit Q6H NELSON Administration Protocol Labetalol HCl 20 mg 06/03/20 09:00 06/08/20 23:51 Labetalol IV 20 mg Q4H PRN Administration HYPERTENSION Lansoprazole 30 mg 06/05/20 22:00 06/19/20 09:13 Prevacid Solutab FEEDTUBE 30 mg BID NELSON Administration Levetiracetam 500 mg 06/16/20 11:00 06/19/20 09:13 Keppra PO 500 mg BID NELSON Administration Metoclopramide HCl 10 mg 06/10/20 20:00 06/19/20 09:24 Reglan IV 10 mg Q6H NELSON Administration Multi-Ingred Cream/Lotion/Oil/Oint 1 applic 05/28/20 13:49 Artificial Tears Ophth Oint OU Q4HR PRN Dry Eye(s) Ondansetron HCl 4 mg 06/02/20 09:00 06/09/20 16:48 Zofran IV 4 mg Q8H PRN Administration Nausea And Vomiting Quetiapine Fumarate 50 mg 06/14/20 22:00 06/18/20 23:07 Seroquel PO 50 mg QHS NELSON Administration Scopolamine 1 each 06/05/20 14:00 06/17/20 09:39 Transderm-Scop TD 1 each Q3D NELSON Administration Senna 17.6 mg 06/03/20 10:00 06/19/20 09:12 Senokot FEEDTUBE 17.6 mg BID NELSON Administration Simple Syrup 15 ml 05/29/20 13:39 Simple Syrup FEEDTUBE PRN PRN Hypoglycemia Simple Syrup 30 ml 05/29/20 13:39 Simple Syrup FEEDTUBE PRN PRN Hypoglycemia Sodium Bicarbonate 325 mg 05/29/20 13:39 Sodium Bicarbonate FEEDTUBE PRN PRN For Clogged Feeding Tube Sodium Bicarbonate 650 mg 06/06/20 10:00 06/19/20 09:12 Sodium Bicarbonate PO 650 mg BID NELSON Administration Sodium Chloride 10 ml 05/28/20 22:00 06/19/20 09:14 Sodium Chloride Flush Syringe 10 Ml IV 10 ml BID NELSON Administration Sodium Chloride 10 ml 05/28/20 19:08 06/16/20 17:50 Sodium Chloride Flush Syringe 10 Ml IV 10 ml PRN PRN Administration LINE FLUSH Nutrition/Malnutrition Assess - Dietary Evaluation Nutrition/Malnutrition Findings: Nutrition Notes Start: 05/29/20 11:45 Freq: Status: Active Protocol: Document 06/18/20 10:19 LP (Rec: 06/18/20 10:27 LP [email or web address]) Nutrition Notes Initial or Follow up Reassessment Current Diagnosis Acute Kidney Injury,Diabetes, Heart Failure,Respiratory Failure Other Pertinent Diagnosis COVID-19 (+) Current Diet Nepro at 40ml/hr Labs/Tests Reviewed Pertinent Medications Reviewed Height 5 ft 6 in Weight 123 kg [place] Body Weight (kg) 59.09 BMI 43.7 Subjective/Other Information Pt tolerating TF at goal rate. ACID CONCENTRATOR recs NPO Percent of energy/protein needs met: 100%/86% Burn Absent Trauma Absent GI Symptoms Other Current % PO Negligible Minimum of two criteria No physical signs of malnutrition #1 Nutrition Diagnosis Inadequate oral intake Diagnosis Progress(for reassessment Continues documentation) Is patient on ventilator? No Is Patient Ambulatory and/or Out of Bed No REE-([facility]-confined to bed) 2172.576 Kcal/Kg value to use for calculation 13 Approximate Energy Requirements Using 1599 kcal/Kg Calculation Used for Recommendations Kcal/kg Additional Notes Protein needs are 91-109g (1-1 .2g/kg 91kg adjusted wt) Fluid needs 1ml/kcal Nutrition Intervention Change Diet Order: TF Nutrition Support: Continue Nepro at 40ml/hr 200ml q4h per MD Kcal 1,728 Protein (gm) 78 Fluid (mL) 698 Goal #1 TF tolerance Goal #2 TF to meet at least 75% energy and pro needs Anticipated Discharge Needs: Unable to determine at this becky Follow-Up By: 06/23/20 Additional Comments Follow for stable TF
--- NOTE | 2020-06-19 12:30 | Progress Note ---
Assessment and Plan Cultures: Coronavirus PCR: Positive 05/28/2020 blood culture: no growth 05/28/2020 tracheal aspirate: Usual respiratory bobo 05/28/2020 urine culture: No growth 06/03/2020 urine culture: No growth Sputum culture: Klebsiella A/P: 64-year-old female with hypertension, diastolic CHF, pulmonary hypertension, diabetes, obesity hypoventilation syndrome was admitted to the emergency room after she called EMS due to difficulty breathing. On the way to the hospital, patient developed cardiac arrest and was treated as per ACLS protocol: #Bilateral pneumonia: Secondary to COVID-19. Completed 5 days of IV Remdesivir 06/02/2020. #Acute hypoxic respiratory failure: On HFNC #Klebsiella pneumonia: Completed cefepime #Status post PEA arrest, encephalopathy #HF: EF 45-50% #Mild LFT elevation: likely from COVID-19. #Mild AVANI Recs: Continue to monitor. Completed cefepime Infectious disease will sign off as antibiotics are completed. Please call with any questions. Dr. Wright covering for weekend G. Emily Chaudhari MD [facility] ([facility]) M: [phone] O: [phone] F: [phone] Subjective Date of service: 06/19/20 Principal diagnosis: Ac hypoxemic resp failure; COVID-19; pneumonia; CHF; Pulm HTN; OHS; DM II Interval history: Afebrile normal amplitude better. Remains on high flow nasal cannula. Objective - Exam Narrative Exam: Physical exam deferred due to PPE conservation strategy. Please refer to primary team's note. - Constitutional Vitals: Vital Signs Temp Pulse Resp BP Pulse Ox 99.5 F 71 14 143/56 99 06/19/20 06:20 06/19/20 12:00 06/19/20 08:00 06/19/20 09:12 06/19/20 08:00 Temperature -Last 24 Hours Temperature 99.5 F Temperature 98.8 F Temperature 98.1 F - Labs CBC & Chem 7: 06/15/20 04:24 06/18/20 04:42 Labs: Abnormal lab results 06/18/20 06/19/20 06/19/20 Range/Units 23:46 05:48 07:52 POC Glucose 130 H 207 H 175 H (70-105) 06/19/20 Range/Units 11:42 POC Glucose 166 H (70-105)
--- NOTE | 2020-06-19 12:54 | Progress Note ---
Assessment and Plan Acute hypoxemic respiratory failure on MVS Coronavirus-19 infection. Bilateral pulmonary infiltrates, bilateral pneumonia plus likely element of Pulmonary edema. Bilateral pulmonary edema. Bilateral pleural effusions. History of congestive heart failure. Morbid obesity. History of pulmonary hypertension. History of hypertension. Diabetes. Obesity hypoventilation syndrome. Elevated serum inflammatory markers to include D-dimers and LDH levels. Hyperkalemia at presentation. Metabolic acidosis. Oropharyngeal dysphagia. - discontinue Seroquel if lethargy is persistent - continue BIPAP scheduled qhs with prn daytime use - advance diet per PHOTOGRAPHY INTERN team - continue Robinul and scopolamine for secretions control - continue care as below otherwise; - continue COVID-19 isolation per protocol - strict I's and O's - continue to wean supplemental oxygen for target O2 sat's > 90% acutely - continue aspiration precautions - continue lung protective strategies - continue bronchodilators with pulmonary hygiene per RT - wean per pulmonary driven protocols otherwise - continue accuchecks with glycemic control per SSI for target BG <180 mg/dL; avoid hypoglycemia - continue to avoid benzodiazepine's, reduce the possibility of delirium - azotemia per nephrology - continue to avoid nephrotoxins and renally dose all medications - completed AB's per ID rec's - continue Reglan for GI motility issues - prn analgesia per pain score - Maintenance of sleep-wake cycle, avoid delirium - continue enteral nutritional support at goal rate as tolerated - G.I. & VTE prophylaxis - PT/OT/ROM exercises - continue mobility protocols for pressure ulcer prophylaxis - Monitor hemodynamics closely - continue other care per attending / other consultants - discharge planning ongoing concurrently - OK to transfer to medical floor .... Re-evaluate in am & prn Subjective Date of service: 06/19/20 Principal diagnosis: Ac hypoxemic resp failure; COVID-19; pneumonia; CHF; Pulm HTN; OHS; DM II Interval history: Patient is seen today for: Ac hypoxemic resp failure; Coronavirus-19 infection; pneumonia; Pulmonary edema; Bilateral pleural effusions; CHF; Morbid obesity; pulmonary hypertension; OHS; DM II Seen and examined at bedside; 24hour events reviewed; nursing and respiratory care staff consulted; no adverse overnight events reported to me; resting peacefully in bed; FiO2 down to 30% with 20L flow; lethargic but denies pain; no emesis or overt aspiration; remains NPO and on tube feeds Objective Vital Signs - 12hr 06/19/20 06/19/20 06/19/20 06:20 08:00 09:12 Temperature 99.5 F Pulse Rate 71 72 71 Respiratory 20 14 Rate Blood Pressure 143/56 143/56 O2 Sat by Pulse 100 99 Oximetry 06/19/20 06/19/20 06/19/20 11:26 11:27 12:00 Temperature 97.7 F Pulse Rate 70 72 71 Respiratory 20 Rate Blood Pressure 148/57 O2 Sat by Pulse 98 98 Oximetry Constitutional: no acute distress, other (elderly looking obese female on HFNC with mildly increased respiratory effort at rest) Eyes: non-icteric ENT: oropharynx moist, other (extubated) Neck: supple, no lymphadenopathy, no JVD, other (large neck circumference) Effort: mildly labored Ascultation: Bilateral: diminished breath sounds, rhonchi (scant) Percussion: Bilateral: not dull Cardiovascular: regular rate and rhythm, other (S1,S2) Gastrointestinal: normoactive bowel sounds, soft, non-tender, non-distended Integumentary: normal Extremities: no cyanosis, no edema, pink and warm, pulses normal, no ischemia or petechiae Neurologic: non-focal exam (grossly), pupils equal and round, other (lethargic) Psychiatric: other (unable to assess re: AMS) CBC and BMP: 06/15/20 04:24 06/18/20 04:42 ABG, PT/INR, D-dimer: ABG ABG pH 7.409 pH Units (7.350-7.450) 06/12/20 09: POC ABG pCO2 37.4 mmHg (32.0-48.0) 06/11/20 11:11 ABG pCO2 42.0 mm Hg 06/12/20 09:20 POC ABG pO2 101.9 mmHg (83-108) 06/11/20 11:11 ABG pO2 91.1 mm Hg (80.0-90.0) H 06/12/20 09: ABG O2 Saturation 97.0 % (95.0-99.0) 06/12/20 09:20 PT/INR, D-dimer PT 14.2 Sec. (12.2-14.9) 05/29/20 15:10 INR 1.08 (0.87-1.13) 05/29/20 15:10 D-Dimer 414.52 ng/mlDDU (0-234) H 06/04/20 04:19 Abnormal lab findings: Abnormal Labs 05/28/20 05/28/20 05/28/20 13:29 13:47 13:47 WBC RBC Hgb Hct RDW 15.3 H Lymph % (Auto) [place] % (Auto) Eos % (Auto) Lymph # [place] # Seg Neutrophils % Seg Neuts % (Manual) Lymphocytes % (Manual) Seg Neutrophils # Seg Neutrophils # Man Lymphocytes # (Manual) Monocytes # (Manual) D-Dimer Heparin Anti-Xa Level ABG pH ABG pO2 ABG HCO3 ABG O2 Saturation ABG Base Excess ABG Hemoglobin VBG pH Oxyhemoglobin Sodium Potassium 6.6 H* Chloride 109.2 H Carbon Dioxide 17 L BUN 29 H Creatinine 1.3 H Glucose 265 H POC Glucose 248 H Lactic Acid Calcium 8.1 L AST 63 H Alkaline Phosphatase Lactate Dehydrogenase Total Creatine Kinase 301 H CK-MB (CK-2) 4.3 H C-Reactive Protein Total Protein 5.4 L Albumin 2.6 L Urine WBC (Auto) Urine Creatinine Urine Total Protein Coronavirus (PCR) 05/28/20 05/28/20 05/28/20 13:47 13:47 14:46 WBC RBC Hgb Hct RDW Lymph % (Auto) [place] % (Auto) Eos % (Auto) Lymph # [place] # Seg Neutrophils % Seg Neuts % (Manual) Lymphocytes % (Manual) Seg Neutrophils # Seg Neutrophils # Man Lymphocytes # (Manual) Monocytes # (Manual) D-Dimer Heparin Anti-Xa Level ABG pH ABG pO2 ABG HCO3 ABG O2 Saturation ABG Base Excess ABG Hemoglobin VBG pH 7.152 L* Oxyhemoglobin Sodium Potassium 7.2 H* Chloride Carbon Dioxide BUN Creatinine Glucose POC Glucose Lactic Acid 3.40 H* Calcium AST Alkaline Phosphatase Lactate Dehydrogenase Total Creatine Kinase CK-MB (CK-2) C-Reactive Protein Total Protein Albumin Urine WBC (Auto) Urine Creatinine Urine Total Protein Coronavirus (PCR) 05/28/20 05/28/20 05/28/20 15:33 15:33 15:51 WBC RBC Hgb Hct RDW Lymph % (Auto) [place] % (Auto) Eos % (Auto) Lymph # [place] # Seg Neutrophils % Seg Neuts % (Manual) Lymphocytes % (Manual) Seg Neutrophils # Seg Neutrophils # Man Lymphocytes # (Manual) Monocytes # (Manual) D-Dimer 8780.43 H Heparin Anti-Xa Level ABG pH 7.284 L ABG pO2 273.0 H ABG HCO3 ABG O2 Saturation 99.4 H ABG Base Excess -6.1 L ABG Hemoglobin 17.2 H VBG pH Oxyhemoglobin Sodium Potassium Chloride Carbon Dioxide BUN Creatinine Glucose 152 H POC Glucose Lactic Acid Calcium AST Alkaline Phosphatase Lactate Dehydrogenase 365 H Total Creatine Kinase CK-MB (CK-2) C-Reactive Protein Total Protein Albumin Urine WBC (Auto) Urine Creatinine Urine Total Protein Coronavirus (PCR) 05/28/20 05/28/20 05/28/20 16:30 20:41 23:20 WBC RBC Hgb Hct RDW Lymph % (Auto) [place] % (Auto) Eos % (Auto) Lymph # [place] # Seg Neutrophils % Seg Neuts % (Manual) Lymphocytes % (Manual) Seg Neutrophils # Seg Neutrophils # Man Lymphocytes # (Manual) Monocytes # (Manual) D-Dimer Heparin Anti-Xa Level ABG pH ABG pO2 ABG HCO3 ABG O2 Saturation ABG Base Excess ABG Hemoglobin VBG pH Oxyhemoglobin Sodium Potassium Chloride Carbon Dioxide BUN Creatinine Glucose POC Glucose 225 H 224 H Lactic Acid Calcium AST Alkaline Phosphatase Lactate Dehydrogenase Total Creatine Kinase CK-MB (CK-2) C-Reactive Protein Total Protein Albumin Urine WBC (Auto) 17.0 H Urine Creatinine Urine Total Protein Coronavirus (PCR) 05/28/20 05/29/20 05/29/20 Unknown 04:35 04:43 WBC RBC 3.48 L Hgb 9.8 L Hct 29.4 L RDW 16.0 H Lymph % (Auto) 7.4 L [place] % (Auto) Eos % (Auto) Lymph # 0.7 L [place] # Seg Neutrophils % 89.1 H Seg Neuts % (Manual) Lymphocytes % (Manual) Seg Neutrophils # 8.1 H Seg Neutrophils # Man Lymphocytes # (Manual) Monocytes # (Manual) D-Dimer Heparin Anti-Xa Level ABG pH ABG pO2 ABG HCO3 19.3 L ABG O2 Saturation ABG Base Excess -4.5 L ABG Hemoglobin 9.7 L VBG pH Oxyhemoglobin Sodium Potassium Chloride Carbon Dioxide BUN Creatinine Glucose POC Glucose Lactic Acid Calcium AST Alkaline Phosphatase Lactate Dehydrogenase Total Creatine Kinase CK-MB (CK-2) C-Reactive Protein Total Protein Albumin Urine WBC (Auto) Urine Creatinine Urine Total Protein Coronavirus (PCR) Positive A 05/29/20 05/29/20 05/29/20 04:43 15:10 17:17 WBC RBC Hgb 9.3 L Hct 28.7 L RDW Lymph % (Auto) [place] % (Auto) Eos % (Auto) Lymph # [place] # Seg Neutrophils % Seg Neuts % (Manual) Lymphocytes % (Manual) Seg Neutrophils # Seg Neutrophils # Man Lymphocytes # (Manual) Monocytes # (Manual) D-Dimer Heparin Anti-Xa Level ABG pH ABG pO2 ABG HCO3 ABG O2 Saturation ABG Base Excess ABG Hemoglobin VBG pH Oxyhemoglobin Sodium Potassium Chloride 110.2 H Carbon Dioxide 18 L BUN 32 H Creatinine 1.4 H Glucose 180 H POC Glucose 147 H Lactic Acid Calcium AST Alkaline Phosphatase Lactate Dehydrogenase Total Creatine Kinase CK-MB (CK-2) C-Reactive Protein Total Protein Albumin Urine WBC (Auto) Urine Creatinine Urine Total Protein Coronavirus (PCR) 05/30/20 05/30/20 05/30/20 00:08 00:12 04:15 WBC RBC Hgb Hct RDW Lymph % (Auto) [place] % (Auto) Eos % (Auto) Lymph # [place] # Seg Neutrophils % Seg Neuts % (Manual) Lymphocytes % (Manual) Seg Neutrophils # Seg Neutrophils # Man Lymphocytes # (Manual) Monocytes # (Manual) D-Dimer Heparin Anti-Xa Level 0.71 H ABG pH 7.460 H ABG pO2 106.0 H ABG HCO3 18.9 L ABG O2 Saturation ABG Base Excess -4.4 L ABG Hemoglobin 6.8 L VBG pH Oxyhemoglobin Sodium Potassium Chloride Carbon Dioxide BUN Creatinine Glucose POC Glucose 195 H Lactic Acid Calcium AST Alkaline Phosphatase Lactate Dehydrogenase Total Creatine Kinase CK-MB (CK-2) C-Reactive Protein Total Protein Albumin Urine WBC (Auto) Urine Creatinine Urine Total Protein Coronavirus (PCR) 05/30/20 05/30/20 05/30/20 06:07 08:37 12:33 WBC RBC Hgb Hct RDW Lymph % (Auto) [place] % (Auto) Eos % (Auto) Lymph # [place] # Seg Neutrophils % Seg Neuts % (Manual) Lymphocytes % (Manual) Seg Neutrophils # Seg Neutrophils # Man Lymphocytes # (Manual) Monocytes # (Manual) D-Dimer Heparin Anti-Xa Level 0.85 H ABG pH ABG pO2 ABG HCO3 ABG O2 Saturation ABG Base Excess ABG Hemoglobin VBG pH Oxyhemoglobin Sodium Potassium Chloride Carbon Dioxide BUN Creatinine Glucose POC Glucose 182 H 187 H Lactic Acid Calcium AST Alkaline Phosphatase Lactate Dehydrogenase Total Creatine Kinase CK-MB (CK-2) C-Reactive Protein Total Protein Albumin Urine WBC (Auto) Urine Creatinine Urine Total Protein Coronavirus (PCR) 05/30/20 05/30/20 05/30/20 15:58 17:57 23:36 WBC RBC Hgb Hct RDW Lymph % (Auto) [place] % (Auto) Eos % (Auto) Lymph # [place] # Seg Neutrophils % Seg Neuts % (Manual) Lymphocytes % (Manual) Seg Neutrophils # Seg Neutrophils # Man Lymphocytes # (Manual) Monocytes # (Manual) D-Dimer Heparin Anti-Xa Level 1.03 H ABG pH ABG pO2 ABG HCO3 ABG O2 Saturation ABG Base Excess ABG Hemoglobin VBG pH Oxyhemoglobin Sodium Potassium Chloride Carbon Dioxide BUN Creatinine Glucose POC Glucose 208 H 185 H Lactic Acid Calcium AST Alkaline Phosphatase Lactate Dehydrogenase Total Creatine Kinase CK-MB (CK-2) C-Reactive Protein Total Protein Albumin Urine WBC (Auto) Urine Creatinine Urine Total Protein Coronavirus (PCR) 05/31/20 05/31/20 05/31/20 02:16 03:55 06:16 WBC RBC Hgb 9.2 L Hct 27.5 L RDW Lymph % (Auto) [place] % (Auto) Eos % (Auto) Lymph # [place] # Seg Neutrophils % Seg Neuts % (Manual) Lymphocytes % (Manual) Seg Neutrophils # Seg Neutrophils # Man Lymphocytes # (Manual) Monocytes # (Manual) D-Dimer Heparin Anti-Xa Level ABG pH ABG pO2 94.7 H ABG HCO3 18.6 L ABG O2 Saturation ABG Base Excess -5.5 L ABG Hemoglobin 7.9 L VBG pH Oxyhemoglobin Sodium Potassium Chloride Carbon Dioxide BUN Creatinine Glucose POC Glucose 160 H Lactic Acid Calcium AST Alkaline Phosphatase Lactate Dehydrogenase Total Creatine Kinase CK-MB (CK-2) C-Reactive Protein Total Protein Albumin Urine WBC (Auto) Urine Creatinine Urine Total Protein Coronavirus (PCR) 05/31/20 05/31/20 05/31/20 12:20 13:03 18:13 WBC RBC Hgb Hct RDW Lymph % (Auto) [place] % (Auto) Eos % (Auto) Lymph # [place] # Seg Neutrophils % Seg Neuts % (Manual) Lymphocytes % (Manual) Seg Neutrophils # Seg Neutrophils # Man Lymphocytes # (Manual) Monocytes # (Manual) D-Dimer Heparin Anti-Xa Level ABG pH ABG pO2 ABG HCO3 ABG O2 Saturation ABG Base Excess ABG Hemoglobin VBG pH Oxyhemoglobin Sodium Potassium Chloride Carbon Dioxide 18 L BUN 48 H Creatinine 1.6 H Glucose 115 H POC Glucose 128 H 159 H Lactic Acid Calcium 8.3 L AST Alkaline Phosphatase Lactate Dehydrogenase Total Creatine Kinase CK-MB (CK-2) C-Reactive Protein Total Protein 5.4 L Albumin 2.4 L Urine WBC (Auto) Urine Creatinine Urine Total Protein Coronavirus (PCR) 05/31/20 06/01/20 06/01/20 23:51 04:00 05:48 WBC RBC Hgb Hct RDW Lymph % (Auto) [place] % (Auto) Eos % (Auto) Lymph # [place] # Seg Neutrophils % Seg Neuts % (Manual) Lymphocytes % (Manual) Seg Neutrophils # Seg Neutrophils # Man Lymphocytes # (Manual) Monocytes # (Manual) D-Dimer Heparin Anti-Xa Level ABG pH ABG pO2 109.8 H ABG HCO3 18.8 L ABG O2 Saturation ABG Base Excess -5.9 L ABG Hemoglobin 7.8 L VBG pH Oxyhemoglobin Sodium Potassium Chloride Carbon Dioxide BUN Creatinine Glucose POC Glucose 171 H 133 H Lactic Acid Calcium AST Alkaline Phosphatase Lactate Dehydrogenase Total Creatine Kinase CK-MB (CK-2) C-Reactive Protein Total Protein Albumin Urine WBC (Auto) Urine Creatinine Urine Total Protein Coronavirus (PCR) 06/01/20 06/01/20 06/02/20 12:28 17:29 00:08 WBC RBC Hgb Hct RDW Lymph % (Auto) [place] % (Auto) Eos % (Auto) Lymph # [place] # Seg Neutrophils % Seg Neuts % (Manual) Lymphocytes % (Manual) Seg Neutrophils # Seg Neutrophils # Man Lymphocytes # (Manual) Monocytes # (Manual) D-Dimer Heparin Anti-Xa Level ABG pH ABG pO2 ABG HCO3 ABG O2 Saturation ABG Base Excess ABG Hemoglobin VBG pH Oxyhemoglobin Sodium Potassium Chloride Carbon Dioxide BUN Creatinine Glucose POC Glucose 199 H 209 H 162 H Lactic Acid Calcium AST Alkaline Phosphatase Lactate Dehydrogenase Total Creatine Kinase CK-MB (CK-2) C-Reactive Protein Total Protein Albumin Urine WBC (Auto) Urine Creatinine Urine Total Protein Coronavirus (PCR) 06/02/20 06/02/20 06/02/20 04:20 04:20 04:44 WBC RBC Hgb 10.0 L Hct RDW Lymph % (Auto) [place] % (Auto) Eos % (Auto) Lymph # [place] # Seg Neutrophils % Seg Neuts % (Manual) Lymphocytes % (Manual) Seg Neutrophils # Seg Neutrophils # Man Lymphocytes # (Manual) Monocytes # (Manual) D-Dimer Heparin Anti-Xa Level 0.10 L ABG pH ABG pO2 150.6 H ABG HCO3 ABG O2 Saturation ABG Base Excess -4.1 L ABG Hemoglobin 11.8 L VBG pH Oxyhemoglobin Sodium Potassium Chloride Carbon Dioxide BUN Creatinine Glucose POC Glucose Lactic Acid Calcium AST Alkaline Phosphatase Lactate Dehydrogenase Total Creatine Kinase CK-MB (CK-2) C-Reactive Protein Total Protein Albumin Urine WBC (Auto) Urine Creatinine Urine Total Protein Coronavirus (PCR) 06/02/20 06/02/20 06/02/20 05:53 12:04 13:49 WBC RBC Hgb Hct RDW Lymph % (Auto) [place] % (Auto) Eos % (Auto) Lymph # [place] # Seg Neutrophils % Seg Neuts % (Manual) Lymphocytes % (Manual) Seg Neutrophils # Seg Neutrophils # Man Lymphocytes # (Manual) Monocytes # (Manual) D-Dimer Heparin Anti-Xa Level 0.28 L ABG pH ABG pO2 ABG HCO3 ABG O2 Saturation ABG Base Excess ABG Hemoglobin VBG pH Oxyhemoglobin Sodium Potassium Chloride Carbon Dioxide BUN Creatinine Glucose POC Glucose 149 H 220 H Lactic Acid Calcium AST Alkaline Phosphatase Lactate Dehydrogenase Total Creatine Kinase CK-MB (CK-2) C-Reactive Protein Total Protein Albumin Urine WBC (Auto) Urine Creatinine Urine Total Protein Coronavirus (PCR) 06/02/20 06/02/20 06/03/20 13:49 18:31 00:42 WBC RBC Hgb Hct RDW Lymph % (Auto) [place] % (Auto) Eos % (Auto) Lymph # [place] # Seg Neutrophils % Seg Neuts % (Manual) Lymphocytes % (Manual) Seg Neutrophils # Seg Neutrophils # Man Lymphocytes # (Manual) Monocytes # (Manual) D-Dimer 769.68 H Heparin Anti-Xa Level ABG pH ABG pO2 ABG HCO3 ABG O2 Saturation ABG Base Excess ABG Hemoglobin VBG pH Oxyhemoglobin Sodium Potassium Chloride Carbon Dioxide BUN Creatinine Glucose POC Glucose 225 H 212 H Lactic Acid Calcium AST Alkaline Phosphatase Lactate Dehydrogenase Total Creatine Kinase CK-MB (CK-2) C-Reactive Protein Total Protein Albumin Urine WBC (Auto) Urine Creatinine Urine Total Protein Coronavirus (PCR) 06/03/20 06/03/20 06/03/20 05:16 05:16 05:25 WBC 11.4 H RBC Hgb Hct RDW 16.4 H Lymph % (Auto) [place] % (Auto) Eos % (Auto) Lymph # [place] # Seg Neutrophils % Seg Neuts % (Manual) Lymphocytes % (Manual) Seg Neutrophils # Seg Neutrophils # Man Lymphocytes # (Manual) Monocytes # (Manual) D-Dimer Heparin Anti-Xa Level ABG pH ABG pO2 160.9 H ABG HCO3 19.4 L ABG O2 Saturation ABG Base Excess -4.9 L ABG Hemoglobin 7.0 L VBG pH Oxyhemoglobin Sodium Potassium Chloride Carbon Dioxide 18 L BUN 65 H Creatinine 2.0 H Glucose 175 H POC Glucose Lactic Acid Calcium 8.0 L AST Alkaline Phosphatase Lactate Dehydrogenase Total Creatine Kinase CK-MB (CK-2) C-Reactive Protein Total Protein 5.5 L Albumin 2.2 L Urine WBC (Auto) Urine Creatinine Urine Total Protein Coronavirus (PCR) 06/03/20 06/03/20 06/03/20 06:07 11:58 18:24 WBC RBC Hgb Hct RDW Lymph % (Auto) [place] % (Auto) Eos % (Auto) Lymph # [place] # Seg Neutrophils % Seg Neuts % (Manual) Lymphocytes % (Manual) Seg Neutrophils # Seg Neutrophils # Man Lymphocytes # (Manual) Monocytes # (Manual) D-Dimer Heparin Anti-Xa Level ABG pH ABG pO2 ABG HCO3 ABG O2 Saturation ABG Base Excess ABG Hemoglobin VBG pH Oxyhemoglobin Sodium Potassium Chloride Carbon Dioxide BUN Creatinine Glucose POC Glucose 177 H 163 H 211 H Lactic Acid Calcium AST Alkaline Phosphatase Lactate Dehydrogenase Total Creatine Kinase CK-MB (CK-2) C-Reactive Protein Total Protein Albumin Urine WBC (Auto) Urine Creatinine Urine Total Protein Coronavirus (PCR) 06/03/20 06/03/20 06/04/20 21:50 Unknown 00:26 WBC RBC Hgb Hct RDW Lymph % (Auto) [place] % (Auto) Eos % (Auto) Lymph # [place] # Seg Neutrophils % Seg Neuts % (Manual) Lymphocytes % (Manual) Seg Neutrophils # Seg Neutrophils # Man Lymphocytes # (Manual) Monocytes # (Manual) D-Dimer Heparin Anti-Xa Level ABG pH ABG pO2 ABG HCO3 ABG O2 Saturation ABG Base Excess ABG Hemoglobin VBG pH Oxyhemoglobin Sodium 135 L Potassium Chloride Carbon Dioxide 18 L BUN Creatinine Glucose POC Glucose 241 H Lactic Acid Calcium AST Alkaline Phosphatase Lactate Dehydrogenase Total Creatine Kinase CK-MB (CK-2) C-Reactive Protein Total Protein Albumin Urine WBC (Auto) 11.0 H Urine Creatinine Urine Total Protein Coronavirus (PCR) 06/04/20 06/04/20 06/04/20 03:35 04:19 04:19 WBC RBC 3.15 L Hgb 8.9 L Hct 26.8 L D RDW 15.9 H Lymph % (Auto) 6.0 L [place] % (Auto) Eos % (Auto) Lymph # 0.6 L [place] # Seg Neutrophils % 86.6 H Seg Neuts % (Manual) Lymphocytes % (Manual) Seg Neutrophils # 9.1 H Seg Neutrophils # Man Lymphocytes # (Manual) Monocytes # (Manual) D-Dimer Heparin Anti-Xa Level ABG pH 7.331 L ABG pO2 ABG HCO3 ABG O2 Saturation ABG Base Excess -4.7 L ABG Hemoglobin 11.0 L VBG pH Oxyhemoglobin 93.9 L Sodium 136 L Potassium Chloride Carbon Dioxide 20 L BUN 73 H Creatinine 2.0 H Glucose 192 H POC Glucose Lactic Acid Calcium 8.0 L AST Alkaline Phosphatase Lactate Dehydrogenase 271 H Total Creatine Kinase CK-MB (CK-2) C-Reactive Protein 2.20 H Total Protein 5.0 L Albumin 2.0 L Urine WBC (Auto) Urine Creatinine Urine Total Protein Coronavirus (PCR) 06/04/20 06/04/20 06/04/20 04:19 05:51 11:48 WBC RBC Hgb Hct RDW Lymph % (Auto) [place] % (Auto) Eos % (Auto) Lymph # [place] # Seg Neutrophils % Seg Neuts % (Manual) Lymphocytes % (Manual) Seg Neutrophils # Seg Neutrophils # Man Lymphocytes # (Manual) Monocytes # (Manual) D-Dimer 414.52 H Heparin Anti-Xa Level ABG pH ABG pO2 ABG HCO3 ABG O2 Saturation ABG Base Excess ABG Hemoglobin VBG pH Oxyhemoglobin Sodium Potassium Chloride Carbon Dioxide BUN Creatinine Glucose POC Glucose 179 H 213 H Lactic Acid Calcium AST Alkaline Phosphatase Lactate Dehydrogenase Total Creatine Kinase CK-MB (CK-2) C-Reactive Protein Total Protein Albumin Urine WBC (Auto) Urine Creatinine Urine Total Protein Coronavirus (PCR) 06/04/20 06/05/20 06/05/20 18:25 00:16 05:00 WBC RBC Hgb Hct RDW Lymph % (Auto) [place] % (Auto) Eos % (Auto) Lymph # [place] # Seg Neutrophils % Seg Neuts % (Manual) Lymphocytes % (Manual) Seg Neutrophils # Seg Neutrophils # Man Lymphocytes # (Manual) Monocytes # (Manual) D-Dimer Heparin Anti-Xa Level ABG pH 7.286 L ABG pO2 96.2 H ABG HCO3 ABG O2 Saturation ABG Base Excess -6.3 L ABG Hemoglobin 8.8 L VBG pH Oxyhemoglobin 94.8 L Sodium Potassium Chloride Carbon Dioxide BUN Creatinine Glucose POC Glucose 238 H 183 H Lactic Acid Calcium AST Alkaline Phosphatase Lactate Dehydrogenase Total Creatine Kinase CK-MB (CK-2) C-Reactive Protein Total Protein Albumin Urine WBC (Auto) Urine Creatinine Urine Total Protein Coronavirus (PCR) 06/05/20 06/05/20 06/05/20 05:39 07:25 07:25 WBC RBC 2.97 L Hgb 8.7 L Hct 25.7 L RDW 16.0 H Lymph % (Auto) 8.8 L [place] % (Auto) 13.3 H Eos % (Auto) Lymph # 0.8 L [place] # 1.3 H Seg Neutrophils % 77.3 H Seg Neuts % (Manual) Lymphocytes % (Manual) Seg Neutrophils # Seg Neutrophils # Man Lymphocytes # (Manual) Monocytes # (Manual) D-Dimer Heparin Anti-Xa Level ABG pH ABG pO2 ABG HCO3 ABG O2 Saturation ABG Base Excess ABG Hemoglobin VBG pH Oxyhemoglobin Sodium 133 L Potassium Chloride Carbon Dioxide 17 L BUN 89 H Creatinine 2.8 H Glucose 176 H POC Glucose 149 H Lactic Acid Calcium 7.7 L AST Alkaline Phosphatase Lactate Dehydrogenase Total Creatine Kinase CK-MB (CK-2) C-Reactive Protein Total Protein 4.2 L Albumin 1.9 L Urine WBC (Auto) Urine Creatinine Urine Total Protein Coronavirus (PCR) 06/05/20 06/05/20 06/05/20 07:25 12:05 15:41 WBC RBC Hgb Hct RDW Lymph % (Auto) [place] % (Auto) Eos % (Auto) Lymph # [place] # Seg Neutrophils % Seg Neuts % (Manual) Lymphocytes % (Manual) Seg Neutrophils # Seg Neutrophils # Man Lymphocytes # (Manual) Monocytes # (Manual) D-Dimer Heparin Anti-Xa Level 0.76 H 0.81 H ABG pH ABG pO2 ABG HCO3 ABG O2 Saturation ABG Base Excess ABG Hemoglobin VBG pH Oxyhemoglobin Sodium Potassium Chloride Carbon Dioxide BUN Creatinine Glucose POC Glucose 198 H Lactic Acid Calcium AST Alkaline Phosphatase Lactate Dehydrogenase Total Creatine Kinase CK-MB (CK-2) C-Reactive Protein Total Protein Albumin Urine WBC (Auto) Urine Creatinine Urine Total Protein Coronavirus (PCR) 06/05/20 06/05/20 06/06/20 18:08 23:25 04:00 WBC RBC Hgb Hct RDW Lymph % (Auto) [place] % (Auto) Eos % (Auto) Lymph # [place] # Seg Neutrophils % Seg Neuts % (Manual) Lymphocytes % (Manual) Seg Neutrophils # Seg Neutrophils # Man Lymphocytes # (Manual) Monocytes # (Manual) D-Dimer Heparin Anti-Xa Level ABG pH ABG pO2 ABG HCO3 ABG O2 Saturation ABG Base Excess ABG Hemoglobin VBG pH Oxyhemoglobin Sodium Potassium Chloride Carbon Dioxide BUN Creatinine Glucose POC Glucose 223 H 169 H Lactic Acid Calcium AST Alkaline Phosphatase Lactate Dehydrogenase Total Creatine Kinase CK-MB (CK-2) C-Reactive Protein Total Protein Albumin Urine WBC (Auto) 15.0 H Urine Creatinine Urine Total Protein Coronavirus (PCR) 06/06/20 06/06/20 06/06/20 04:00 05:33 05:38 WBC RBC 2.97 L Hgb 8.7 L Hct 26.8 L RDW 16.8 H Lymph % (Auto) [place] % (Auto) Eos % (Auto) Lymph # [place] # Seg Neutrophils % Seg Neuts % (Manual) Lymphocytes % (Manual) Seg Neutrophils # Seg Neutrophils # Man Lymphocytes # (Manual) Monocytes # (Manual) D-Dimer Heparin Anti-Xa Level ABG pH ABG pO2 ABG HCO3 ABG O2 Saturation ABG Base Excess ABG Hemoglobin VBG pH Oxyhemoglobin Sodium Potassium Chloride Carbon Dioxide BUN Creatinine Glucose POC Glucose 186 H Lactic Acid Calcium AST Alkaline Phosphatase Lactate Dehydrogenase Total Creatine Kinase CK-MB (CK-2) C-Reactive Protein Total Protein Albumin Urine WBC (Auto) Urine Creatinine 82.2 H Urine Total Protein 196 H Coronavirus (PCR) 06/06/20 06/06/20 06/06/20 05:38 12:25 17:03 WBC RBC Hgb Hct RDW Lymph % (Auto) [place] % (Auto) Eos % (Auto) Lymph # [place] # Seg Neutrophils % Seg Neuts % (Manual) Lymphocytes % (Manual) Seg Neutrophils # Seg Neutrophils # Man Lymphocytes # (Manual) Monocytes # (Manual) D-Dimer Heparin Anti-Xa Level ABG pH ABG pO2 ABG HCO3 ABG O2 Saturation ABG Base Excess ABG Hemoglobin VBG pH Oxyhemoglobin Sodium 134 L Potassium 5.2 H Chloride Carbon Dioxide 18 L BUN 97 H Creatinine 2.5 H Glucose 193 H POC Glucose 239 H 252 H Lactic Acid Calcium 7.5 L AST Alkaline Phosphatase Lactate Dehydrogenase Total Creatine Kinase CK-MB (CK-2) C-Reactive Protein Total Protein 4.1 L Albumin 1.9 L Urine WBC (Auto) Urine Creatinine Urine Total Protein Coronavirus (PCR) 06/07/20 06/07/20 06/07/20 00:16 01:49 04:00 WBC RBC 2.91 L Hgb 8.4 L Hct 25.0 L RDW 16.1 H Lymph % (Auto) 5.7 L [place] % (Auto) 10.5 H Eos % (Auto) Lymph # 0.6 L [place] # 1.1 H Seg Neutrophils % 83.6 H Seg Neuts % (Manual) Lymphocytes % (Manual) Seg Neutrophils # 9.1 H Seg Neutrophils # Man Lymphocytes # (Manual) Monocytes # (Manual) D-Dimer Heparin Anti-Xa Level 0.26 L ABG pH ABG pO2 ABG HCO3 ABG O2 Saturation ABG Base Excess ABG Hemoglobin VBG pH Oxyhemoglobin Sodium Potassium Chloride Carbon Dioxide BUN Creatinine Glucose POC Glucose 173 H Lactic Acid Calcium AST Alkaline Phosphatase Lactate Dehydrogenase Total Creatine Kinase CK-MB (CK-2) C-Reactive Protein Total Protein Albumin Urine WBC (Auto) Urine Creatinine Urine Total Protein Coronavirus (PCR) 06/07/20 06/07/20 06/07/20 04:00 04:54 05:51 WBC RBC Hgb Hct RDW Lymph % (Auto) [place] % (Auto) Eos % (Auto) Lymph # [place] # Seg Neutrophils % Seg Neuts % (Manual) Lymphocytes % (Manual) Seg Neutrophils # Seg Neutrophils # Man Lymphocytes # (Manual) Monocytes # (Manual) D-Dimer Heparin Anti-Xa Level ABG pH 7.317 L ABG pO2 71.4 L ABG HCO3 ABG O2 Saturation 94.3 L ABG Base Excess -4.8 L ABG Hemoglobin 7.1 L VBG pH Oxyhemoglobin 92.2 L Sodium 133 L Potassium Chloride Carbon Dioxide 18 L BUN 100 H Creatinine 2.5 H Glucose 158 H POC Glucose 168 H Lactic Acid Calcium 7.6 L AST Alkaline Phosphatase Lactate Dehydrogenase Total Creatine Kinase CK-MB (CK-2) C-Reactive Protein Total Protein 4.7 L Albumin 2.0 L Urine WBC (Auto) Urine Creatinine Urine Total Protein Coronavirus (PCR) 06/07/20 06/07/20 06/07/20 12:03 17:17 20:10 WBC RBC Hgb Hct RDW Lymph % (Auto) [place] % (Auto) Eos % (Auto) Lymph # [place] # Seg Neutrophils % Seg Neuts % (Manual) Lymphocytes % (Manual) Seg Neutrophils # Seg Neutrophils # Man Lymphocytes # (Manual) Monocytes # (Manual) D-Dimer Heparin Anti-Xa Level 0.17 L ABG pH ABG pO2 ABG HCO3 ABG O2 Saturation ABG Base Excess ABG Hemoglobin VBG pH Oxyhemoglobin Sodium Potassium Chloride Carbon Dioxide BUN Creatinine Glucose POC Glucose 276 H 281 H Lactic Acid Calcium AST Alkaline Phosphatase Lactate Dehydrogenase Total Creatine Kinase CK-MB (CK-2) C-Reactive Protein Total Protein Albumin Urine WBC (Auto) Urine Creatinine Urine Total Protein Coronavirus (PCR) 06/08/20 06/08/20 06/08/20 00:02 04:47 04:47 WBC 16.4 H RBC 3.07 L Hgb 8.6 L Hct 26.5 L RDW 16.3 H Lymph % (Auto) [place] % (Auto) Eos % (Auto) Lymph # [place] # Seg Neutrophils % Seg Neuts % (Manual) 90.0 H Lymphocytes % (Manual) 3.0 L Seg Neutrophils # Seg Neutrophils # Man 14.8 H Lymphocytes # (Manual) 0.5 L Monocytes # (Manual) 1.1 H D-Dimer Heparin Anti-Xa Level ABG pH ABG pO2 ABG HCO3 ABG O2 Saturation ABG Base Excess ABG Hemoglobin VBG pH Oxyhemoglobin Sodium 129 L Potassium Chloride 95.6 L Carbon Dioxide 17 L BUN 106 H Creatinine 2.5 H Glucose 213 H POC Glucose 242 H Lactic Acid Calcium 7.6 L AST Alkaline Phosphatase Lactate Dehydrogenase Total Creatine Kinase CK-MB (CK-2) C-Reactive Protein Total Protein 5.0 L Albumin 2.1 L Urine WBC (Auto) Urine Creatinine Urine Total Protein Coronavirus (PCR) 06/08/20 06/08/20 06/08/20 05:40 11:55 17:54 WBC RBC Hgb Hct RDW Lymph % (Auto) [place] % (Auto) Eos % (Auto) Lymph # [place] # Seg Neutrophils % Seg Neuts % (Manual) Lymphocytes % (Manual) Seg Neutrophils # Seg Neutrophils # Man Lymphocytes # (Manual) Monocytes # (Manual) D-Dimer Heparin Anti-Xa Level ABG pH ABG pO2 ABG HCO3 ABG O2 Saturation ABG Base Excess ABG Hemoglobin VBG pH Oxyhemoglobin Sodium Potassium Chloride Carbon Dioxide BUN Creatinine Glucose POC Glucose 221 H 218 H 163 H Lactic Acid Calcium AST Alkaline Phosphatase Lactate Dehydrogenase Total Creatine Kinase CK-MB (CK-2) C-Reactive Protein Total Protein Albumin Urine WBC (Auto) Urine Creatinine Urine Total Protein Coronavirus (PCR) 06/08/20 06/09/20 06/09/20 22:01 00:09 05:16 WBC 19.0 H RBC 3.35 L Hgb 9.2 L Hct 28.5 L RDW 16.3 H Lymph % (Auto) [place] % (Auto) Eos % (Auto) Lymph # [place] # Seg Neutrophils % Seg Neuts % (Manual) 85.0 H Lymphocytes % (Manual) 7.0 L Seg Neutrophils # Seg Neutrophils # Man 16.2 H Lymphocytes # (Manual) Monocytes # (Manual) 1.3 H D-Dimer Heparin Anti-Xa Level ABG pH ABG pO2 ABG HCO3 ABG O2 Saturation ABG Base Excess ABG Hemoglobin VBG pH Oxyhemoglobin Sodium Potassium Chloride Carbon Dioxide BUN Creatinine Glucose POC Glucose 182 H 150 H Lactic Acid Calcium AST Alkaline Phosphatase Lactate Dehydrogenase Total Creatine Kinase CK-MB (CK-2) C-Reactive Protein Total Protein Albumin Urine WBC (Auto) Urine Creatinine Urine Total Protein Coronavirus (PCR) 06/09/20 06/09/20 06/09/20 05:16 05:24 11:29 WBC RBC Hgb Hct RDW Lymph % (Auto) [place] % (Auto) Eos % (Auto) Lymph # [place] # Seg Neutrophils % Seg Neuts % (Manual) Lymphocytes % (Manual) Seg Neutrophils # Seg Neutrophils # Man Lymphocytes # (Manual) Monocytes # (Manual) D-Dimer Heparin Anti-Xa Level ABG pH ABG pO2 ABG HCO3 ABG O2 Saturation ABG Base Excess ABG Hemoglobin VBG pH Oxyhemoglobin Sodium 133 L Potassium Chloride Carbon Dioxide 19 L BUN 109 H Creatinine 2.1 H Glucose 133 H POC Glucose 128 H 119 H Lactic Acid Calcium 7.7 L AST Alkaline Phosphatase < 5 L Lactate Dehydrogenase Total Creatine Kinase CK-MB (CK-2) C-Reactive Protein Total Protein 4.6 L Albumin < 0.2 L Urine WBC (Auto) Urine Creatinine Urine Total Protein Coronavirus (PCR) 06/09/20 06/10/20 06/10/20 17:32 00:00 05:49 WBC RBC Hgb Hct RDW Lymph % (Auto) [place] % (Auto) Eos % (Auto) Lymph # [place] # Seg Neutrophils % Seg Neuts % (Manual) Lymphocytes % (Manual) Seg Neutrophils # Seg Neutrophils # Man Lymphocytes # (Manual) Monocytes # (Manual) D-Dimer Heparin Anti-Xa Level 0.19 L ABG pH ABG pO2 ABG HCO3 ABG O2 Saturation ABG Base Excess ABG Hemoglobin VBG pH Oxyhemoglobin Sodium Potassium Chloride Carbon Dioxide BUN Creatinine Glucose POC Glucose 106 H 117 H Lactic Acid Calcium AST Alkaline Phosphatase Lactate Dehydrogenase Total Creatine Kinase CK-MB (CK-2) C-Reactive Protein Total Protein Albumin Urine WBC (Auto) Urine Creatinine Urine Total Protein Coronavirus (PCR) 06/10/20 06/10/20 06/10/20 05:54 07:40 11:40 WBC RBC Hgb Hct RDW Lymph % (Auto) [place] % (Auto) Eos % (Auto) Lymph # [place] # Seg Neutrophils % Seg Neuts % (Manual) Lymphocytes % (Manual) Seg Neutrophils # Seg Neutrophils # Man Lymphocytes # (Manual) Monocytes # (Manual) D-Dimer Heparin Anti-Xa Level ABG pH ABG pO2 ABG HCO3 ABG O2 Saturation ABG Base Excess ABG Hemoglobin VBG pH Oxyhemoglobin Sodium 146 H D Potassium Chloride Carbon Dioxide 20 L BUN 99 H Creatinine 1.9 H Glucose 121 H POC Glucose 127 H 138 H Lactic Acid Calcium 8.2 L AST Alkaline Phosphatase Lactate Dehydrogenase Total Creatine Kinase CK-MB (CK-2) C-Reactive Protein Total Protein Albumin Urine WBC (Auto) Urine Creatinine Urine Total Protein Coronavirus (PCR) 06/10/20 06/10/20 06/10/20 14:44 17:31 23:22 WBC RBC Hgb Hct RDW Lymph % (Auto) [place] % (Auto) Eos % (Auto) Lymph # [place] # Seg Neutrophils % Seg Neuts % (Manual) Lymphocytes % (Manual) Seg Neutrophils # Seg Neutrophils # Man Lymphocytes # (Manual) Monocytes # (Manual) D-Dimer Heparin Anti-Xa Level 0.17 L ABG pH ABG pO2 ABG HCO3 ABG O2 Saturation ABG Base Excess ABG Hemoglobin VBG pH Oxyhemoglobin Sodium Potassium Chloride Carbon Dioxide BUN Creatinine Glucose POC Glucose 128 H 114 H Lactic Acid Calcium AST Alkaline Phosphatase Lactate Dehydrogenase Total Creatine Kinase CK-MB (CK-2) C-Reactive Protein Total Protein Albumin Urine WBC (Auto) Urine Creatinine Urine Total Protein Coronavirus (PCR) 06/11/20 06/11/20 06/11/20 00:22 03:45 03:45 WBC 14.6 H RBC 2.77 L Hgb 7.9 L Hct 24.3 L RDW 16.8 H Lymph % (Auto) 6.6 L [place] % (Auto) 8.5 H Eos % (Auto) Lymph # 1.0 L [place] # 1.2 H Seg Neutrophils % 82.9 H Seg Neuts % (Manual) Lymphocytes % (Manual) Seg Neutrophils # 12.1 H Seg Neutrophils # Man Lymphocytes # (Manual) Monocytes # (Manual) D-Dimer Heparin Anti-Xa Level 0.24 L ABG pH ABG pO2 ABG HCO3 ABG O2 Saturation ABG Base Excess ABG Hemoglobin VBG pH Oxyhemoglobin Sodium Potassium Chloride Carbon Dioxide 20 L BUN 88 H Creatinine 1.5 H Glucose 111 H POC Glucose Lactic Acid Calcium 8.2 L AST Alkaline Phosphatase Lactate Dehydrogenase Total Creatine Kinase CK-MB (CK-2) C-Reactive Protein Total Protein Albumin Urine WBC (Auto) Urine Creatinine Urine Total Protein Coronavirus (PCR) 06/11/20 06/11/20 06/11/20 06:03 10:22 11:11 WBC RBC Hgb Hct RDW Lymph % (Auto) [place] % (Auto) Eos % (Auto) Lymph # [place] # Seg Neutrophils % Seg Neuts % (Manual) Lymphocytes % (Manual) Seg Neutrophils # Seg Neutrophils # Man Lymphocytes # (Manual) Monocytes # (Manual) D-Dimer Heparin Anti-Xa Level 0.26 L ABG pH ABG pO2 ABG HCO3 ABG O2 Saturation ABG Base Excess ABG Hemoglobin 9.6 L VBG pH Oxyhemoglobin Sodium Potassium Chloride Carbon Dioxide BUN Creatinine Glucose POC Glucose 114 H Lactic Acid Calcium AST Alkaline Phosphatase Lactate Dehydrogenase Total Creatine Kinase CK-MB (CK-2) C-Reactive Protein Total Protein Albumin Urine WBC (Auto) Urine Creatinine Urine Total Protein Coronavirus (PCR) 06/11/20 06/11/20 06/12/20 12:24 17:24 00:21 WBC RBC Hgb Hct RDW Lymph % (Auto) [place] % (Auto) Eos % (Auto) Lymph # [place] # Seg Neutrophils % Seg Neuts % (Manual) Lymphocytes % (Manual) Seg Neutrophils # Seg Neutrophils # Man Lymphocytes # (Manual) Monocytes # (Manual) D-Dimer Heparin Anti-Xa Level ABG pH ABG pO2 ABG HCO3 ABG O2 Saturation ABG Base Excess ABG Hemoglobin VBG pH Oxyhemoglobin Sodium Potassium Chloride Carbon Dioxide BUN Creatinine Glucose POC Glucose 119 H 126 H 117 H Lactic Acid Calcium AST Alkaline Phosphatase Lactate Dehydrogenase Total Creatine Kinase CK-MB (CK-2) C-Reactive Protein Total Protein Albumin Urine WBC (Auto) Urine Creatinine Urine Total Protein Coronavirus (PCR) 06/12/20 06/12/20 06/12/20 02:46 02:46 05:46 WBC 13.2 H RBC 2.83 L Hgb 8.3 L Hct 24.3 L RDW 16.6 H Lymph % (Auto) 6.2 L [place] % (Auto) 9.5 H Eos % (Auto) Lymph # 0.8 L [place] # 1.3 H Seg Neutrophils % 81.9 H Seg Neuts % (Manual) Lymphocytes % (Manual) Seg Neutrophils # 10.9 H Seg Neutrophils # Man Lymphocytes # (Manual) Monocytes # (Manual) D-Dimer Heparin Anti-Xa Level ABG pH ABG pO2 ABG HCO3 ABG O2 Saturation ABG Base Excess ABG Hemoglobin VBG pH Oxyhemoglobin Sodium Potassium 3.5 L Chloride Carbon Dioxide BUN 77 H Creatinine 1.3 H Glucose POC Glucose 132 H Lactic Acid Calcium 8.3 L AST Alkaline Phosphatase Lactate Dehydrogenase Total Creatine Kinase CK-MB (CK-2) C-Reactive Protein Total Protein Albumin Urine WBC (Auto) Urine Creatinine Urine Total Protein Coronavirus (PCR) 06/12/20 06/12/20 06/12/20 09:20 12:16 17:48 WBC RBC Hgb Hct RDW Lymph % (Auto) [place] % (Auto) Eos % (Auto) Lymph # [place] # Seg Neutrophils % Seg Neuts % (Manual) Lymphocytes % (Manual) Seg Neutrophils # Seg Neutrophils # Man Lymphocytes # (Manual) Monocytes # (Manual) D-Dimer Heparin Anti-Xa Level ABG pH ABG pO2 91.1 H ABG HCO3 ABG O2 Saturation ABG Base Excess ABG Hemoglobin VBG pH Oxyhemoglobin 94.8 L Sodium Potassium Chloride Carbon Dioxide BUN Creatinine Glucose POC Glucose 167 H 182 H Lactic Acid Calcium AST Alkaline Phosphatase Lactate Dehydrogenase Total Creatine Kinase CK-MB (CK-2) C-Reactive Protein Total Protein Albumin Urine WBC (Auto) Urine Creatinine Urine Total Protein Coronavirus (PCR) 06/13/20 06/13/20 06/13/20 00:08 05:37 09:09 WBC RBC Hgb Hct RDW Lymph % (Auto) [place] % (Auto) Eos % (Auto) Lymph # [place] # Seg Neutrophils % Seg Neuts % (Manual) Lymphocytes % (Manual) Seg Neutrophils # Seg Neutrophils # Man Lymphocytes # (Manual) Monocytes # (Manual) D-Dimer Heparin Anti-Xa Level 0.86 H ABG pH ABG pO2 ABG HCO3 ABG O2 Saturation ABG Base Excess ABG Hemoglobin VBG pH Oxyhemoglobin Sodium Potassium Chloride Carbon Dioxide BUN Creatinine Glucose POC Glucose 142 H 119 H Lactic Acid Calcium AST Alkaline Phosphatase Lactate Dehydrogenase Total Creatine Kinase CK-MB (CK-2) C-Reactive Protein Total Protein Albumin Urine WBC (Auto) Urine Creatinine Urine Total Protein Coronavirus (PCR) 06/13/20 06/13/20 06/13/20 12:28 17:55 21:17 WBC RBC Hgb Hct RDW Lymph % (Auto) [place] % (Auto) Eos % (Auto) Lymph # [place] # Seg Neutrophils % Seg Neuts % (Manual) Lymphocytes % (Manual) Seg Neutrophils # Seg Neutrophils # Man Lymphocytes # (Manual) Monocytes # (Manual) D-Dimer Heparin Anti-Xa Level ABG pH ABG pO2 ABG HCO3 ABG O2 Saturation ABG Base Excess ABG Hemoglobin VBG pH Oxyhemoglobin Sodium Potassium Chloride Carbon Dioxide BUN 61 H Creatinine Glucose 131 H POC Glucose 165 H 174 H Lactic Acid Calcium AST Alkaline Phosphatase Lactate Dehydrogenase Total Creatine Kinase CK-MB (CK-2) C-Reactive Protein Total Protein Albumin Urine WBC (Auto) Urine Creatinine Urine Total Protein Coronavirus (PCR) 06/13/20 06/13/20 06/14/20 21:17 23:50 05:34 WBC RBC Hgb Hct RDW Lymph % (Auto) [place] % (Auto) Eos % (Auto) Lymph # [place] # Seg Neutrophils % Seg Neuts % (Manual) Lymphocytes % (Manual) Seg Neutrophils # Seg Neutrophils # Man Lymphocytes # (Manual) Monocytes # (Manual) D-Dimer Heparin Anti-Xa Level 0.72 H ABG pH ABG pO2 ABG HCO3 ABG O2 Saturation ABG Base Excess ABG Hemoglobin VBG pH Oxyhemoglobin Sodium 146 H Potassium Chloride 107.6 H Carbon Dioxide BUN 61 H Creatinine 1.3 H Glucose 135 H POC Glucose 146 H Lactic Acid Calcium AST Alkaline Phosphatase Lactate Dehydrogenase Total Creatine Kinase CK-MB (CK-2) C-Reactive Protein Total Protein Albumin Urine WBC (Auto) Urine Creatinine Urine Total Protein Coronavirus (PCR) 06/14/20 06/14/20 06/14/20 06:11 09:28 11:30 WBC RBC Hgb Hct RDW Lymph % (Auto) [place] % (Auto) Eos % (Auto) Lymph # [place] # Seg Neutrophils % Seg Neuts % (Manual) Lymphocytes % (Manual) Seg Neutrophils # Seg Neutrophils # Man Lymphocytes # (Manual) Monocytes # (Manual) D-Dimer Heparin Anti-Xa Level 0.90 H ABG pH ABG pO2 ABG HCO3 ABG O2 Saturation ABG Base Excess ABG Hemoglobin VBG pH Oxyhemoglobin Sodium Potassium Chloride Carbon Dioxide BUN Creatinine Glucose POC Glucose 141 H 186 H Lactic Acid Calcium AST Alkaline Phosphatase Lactate Dehydrogenase Total Creatine Kinase CK-MB (CK-2) C-Reactive Protein Total Protein Albumin Urine WBC (Auto) Urine Creatinine Urine Total Protein Coronavirus (PCR) 06/14/20 06/14/20 06/14/20 16:07 18:16 23:51 WBC RBC Hgb Hct RDW Lymph % (Auto) [place] % (Auto) Eos % (Auto) Lymph # [place] # Seg Neutrophils % Seg Neuts % (Manual) Lymphocytes % (Manual) Seg Neutrophils # Seg Neutrophils # Man Lymphocytes # (Manual) Monocytes # (Manual) D-Dimer Heparin Anti-Xa Level 0.82 H ABG pH ABG pO2 ABG HCO3 ABG O2 Saturation ABG Base Excess ABG Hemoglobin VBG pH Oxyhemoglobin Sodium Potassium Chloride Carbon Dioxide BUN Creatinine Glucose POC Glucose 106 H 154 H Lactic Acid Calcium AST Alkaline Phosphatase Lactate Dehydrogenase Total Creatine Kinase CK-MB (CK-2) C-Reactive Protein Total Protein Albumin Urine WBC (Auto) Urine Creatinine Urine Total Protein Coronavirus (PCR) 06/15/20 06/15/20 06/15/20 04:24 04:24 05:59 WBC RBC 2.75 L Hgb 7.9 L Hct 24.0 L RDW 16.4 H Lymph % (Auto) 12.9 L [place] % (Auto) 8.7 H Eos % (Auto) 4.6 H Lymph # 1.1 L [place] # Seg Neutrophils % 73.2 H Seg Neuts % (Manual) Lymphocytes % (Manual) Seg Neutrophils # Seg Neutrophils # Man Lymphocytes # (Manual) Monocytes # (Manual) D-Dimer Heparin Anti-Xa Level ABG pH ABG pO2 ABG HCO3 ABG O2 Saturation ABG Base Excess ABG Hemoglobin VBG pH Oxyhemoglobin Sodium Potassium 3.4 L Chloride Carbon Dioxide BUN 55 H Creatinine 1.3 H Glucose 142 H POC Glucose 131 H Lactic Acid Calcium AST Alkaline Phosphatase Lactate Dehydrogenase Total Creatine Kinase CK-MB (CK-2) C-Reactive Protein Total Protein Albumin Urine WBC (Auto) Urine Creatinine Urine Total Protein Coronavirus (PCR) 06/15/20 06/15/20 06/16/20 12:33 17:07 00:22 WBC RBC Hgb Hct RDW Lymph % (Auto) [place] % (Auto) Eos % (Auto) Lymph # [place] # Seg Neutrophils % Seg Neuts % (Manual) Lymphocytes % (Manual) Seg Neutrophils # Seg Neutrophils # Man Lymphocytes # (Manual) Monocytes # (Manual) D-Dimer Heparin Anti-Xa Level 0.21 L ABG pH ABG pO2 ABG HCO3 ABG O2 Saturation ABG Base Excess ABG Hemoglobin VBG pH Oxyhemoglobin Sodium Potassium Chloride Carbon Dioxide BUN Creatinine Glucose POC Glucose 180 H 185 H Lactic Acid Calcium AST Alkaline Phosphatase Lactate Dehydrogenase Total Creatine Kinase CK-MB (CK-2) C-Reactive Protein Total Protein Albumin Urine WBC (Auto) Urine Creatinine Urine Total Protein Coronavirus (PCR) 06/16/20 06/16/20 06/16/20 01:45 08:06 09:15 WBC RBC Hgb Hct RDW Lymph % (Auto) [place] % (Auto) Eos % (Auto) Lymph # [place] # Seg Neutrophils % Seg Neuts % (Manual) Lymphocytes % (Manual) Seg Neutrophils # Seg Neutrophils # Man Lymphocytes # (Manual) Monocytes # (Manual) D-Dimer Heparin Anti-Xa Level ABG pH ABG pO2 ABG HCO3 ABG O2 Saturation ABG Base Excess ABG Hemoglobin VBG pH Oxyhemoglobin Sodium Potassium Chloride Carbon Dioxide BUN 49 H Creatinine Glucose 154 H POC Glucose 140 H 171 H Lactic Acid Calcium AST Alkaline Phosphatase Lactate Dehydrogenase Total Creatine Kinase CK-MB (CK-2) C-Reactive Protein Total Protein Albumin Urine WBC (Auto) Urine Creatinine Urine Total Protein Coronavirus (PCR) 06/16/20 06/16/20 06/16/20 10:46 12:33 17:54 WBC RBC Hgb Hct RDW Lymph % (Auto) [place] % (Auto) Eos % (Auto) Lymph # [place] # Seg Neutrophils % Seg Neuts % (Manual) Lymphocytes % (Manual) Seg Neutrophils # Seg Neutrophils # Man Lymphocytes # (Manual) Monocytes # (Manual) D-Dimer Heparin Anti-Xa Level 0.12 L ABG pH ABG pO2 ABG HCO3 ABG O2 Saturation ABG Base Excess ABG Hemoglobin VBG pH Oxyhemoglobin Sodium Potassium Chloride Carbon Dioxide BUN Creatinine Glucose POC Glucose 166 H 151 H Lactic Acid Calcium AST Alkaline Phosphatase Lactate Dehydrogenase Total Creatine Kinase CK-MB (CK-2) C-Reactive Protein Total Protein Albumin Urine WBC (Auto) Urine Creatinine Urine Total Protein Coronavirus (PCR) 06/16/20 06/17/20 06/17/20 18:47 00:00 02:19 WBC RBC Hgb Hct RDW Lymph % (Auto) [place] % (Auto) Eos % (Auto) Lymph # [place] # Seg Neutrophils % Seg Neuts % (Manual) Lymphocytes % (Manual) Seg Neutrophils # Seg Neutrophils # Man Lymphocytes # (Manual) Monocytes # (Manual) D-Dimer Heparin Anti-Xa Level 0.73 H 0.77 H ABG pH ABG pO2 ABG HCO3 ABG O2 Saturation ABG Base Excess ABG Hemoglobin VBG pH Oxyhemoglobin Sodium Potassium Chloride Carbon Dioxide BUN Creatinine Glucose POC Glucose 139 H Lactic Acid Calcium AST Alkaline Phosphatase Lactate Dehydrogenase Total Creatine Kinase CK-MB (CK-2) C-Reactive Protein Total Protein Albumin Urine WBC (Auto) Urine Creatinine Urine Total Protein Coronavirus (PCR) 06/17/20 06/17/20 06/17/20 06:07 11:42 16:43 WBC RBC Hgb Hct RDW Lymph % (Auto) [place] % (Auto) Eos % (Auto) Lymph # [place] # Seg Neutrophils % Seg Neuts % (Manual) Lymphocytes % (Manual) Seg Neutrophils # Seg Neutrophils # Man Lymphocytes # (Manual) Monocytes # (Manual) D-Dimer Heparin Anti-Xa Level 0.73 H ABG pH ABG pO2 ABG HCO3 ABG O2 Saturation ABG Base Excess ABG Hemoglobin VBG pH Oxyhemoglobin Sodium Potassium Chloride Carbon Dioxide BUN Creatinine Glucose POC Glucose 169 H 169 H Lactic Acid Calcium AST Alkaline Phosphatase Lactate Dehydrogenase Total Creatine Kinase CK-MB (CK-2) C-Reactive Protein Total Protein Albumin Urine WBC (Auto) Urine Creatinine Urine Total Protein Coronavirus (PCR) 06/17/20 06/17/20 06/17/20 18:18 23:08 23:16 WBC RBC Hgb Hct RDW Lymph % (Auto) [place] % (Auto) Eos % (Auto) Lymph # [place] # Seg Neutrophils % Seg Neuts % (Manual) Lymphocytes % (Manual) Seg Neutrophils # Seg Neutrophils # Man Lymphocytes # (Manual) Monocytes # (Manual) D-Dimer Heparin Anti-Xa Level 0.71 H ABG pH ABG pO2 ABG HCO3 ABG O2 Saturation ABG Base Excess ABG Hemoglobin VBG pH Oxyhemoglobin Sodium Potassium Chloride Carbon Dioxide BUN Creatinine Glucose POC Glucose 159 H 134 H Lactic Acid Calcium AST Alkaline Phosphatase Lactate Dehydrogenase Total Creatine Kinase CK-MB (CK-2) C-Reactive Protein Total Protein Albumin Urine WBC (Auto) Urine Creatinine Urine Total Protein Coronavirus (PCR) 06/18/20 06/18/20 06/18/20 04:42 05:52 11:50 WBC RBC Hgb Hct RDW Lymph % (Auto) [place] % (Auto) Eos % (Auto) Lymph # [place] # Seg Neutrophils % Seg Neuts % (Manual) Lymphocytes % (Manual) Seg Neutrophils # Seg Neutrophils # Man Lymphocytes # (Manual) Monocytes # (Manual) D-Dimer Heparin Anti-Xa Level ABG pH ABG pO2 ABG HCO3 ABG O2 Saturation ABG Base Excess ABG Hemoglobin VBG pH Oxyhemoglobin Sodium Potassium Chloride Carbon Dioxide BUN 44 H Creatinine Glucose 115 H POC Glucose 171 H 167 H Lactic Acid Calcium AST Alkaline Phosphatase Lactate Dehydrogenase Total Creatine Kinase CK-MB (CK-2) C-Reactive Protein Total Protein Albumin Urine WBC (Auto) Urine Creatinine Urine Total Protein Coronavirus (PCR) 06/18/20 06/19/20 06/19/20 23:46 05:48 07:52 WBC RBC Hgb Hct RDW Lymph % (Auto) [place] % (Auto) Eos % (Auto) Lymph # [place] # Seg Neutrophils % Seg Neuts % (Manual) Lymphocytes % (Manual) Seg Neutrophils # Seg Neutrophils # Man Lymphocytes # (Manual) Monocytes # (Manual) D-Dimer Heparin Anti-Xa Level ABG pH ABG pO2 ABG HCO3 ABG O2 Saturation ABG Base Excess ABG Hemoglobin VBG pH Oxyhemoglobin Sodium Potassium Chloride Carbon Dioxide BUN Creatinine Glucose POC Glucose 130 H 207 H 175 H Lactic Acid Calcium AST Alkaline Phosphatase Lactate Dehydrogenase Total Creatine Kinase CK-MB (CK-2) C-Reactive Protein Total Protein Albumin Urine WBC (Auto) Urine Creatinine Urine Total Protein Coronavirus (PCR) 06/19/20 11:42 WBC RBC Hgb Hct RDW Lymph % (Auto) [place] % (Auto) Eos % (Auto) Lymph # [place] # Seg Neutrophils % Seg Neuts % (Manual) Lymphocytes % (Manual) Seg Neutrophils # Seg Neutrophils # Man Lymphocytes # (Manual) Monocytes # (Manual) D-Dimer Heparin Anti-Xa Level ABG pH ABG pO2 ABG HCO3 ABG O2 Saturation ABG Base Excess ABG Hemoglobin VBG pH Oxyhemoglobin Sodium Potassium Chloride Carbon Dioxide BUN Creatinine Glucose POC Glucose 166 H Lactic Acid Calcium AST Alkaline Phosphatase Lactate Dehydrogenase Total Creatine Kinase CK-MB (CK-2) C-Reactive Protein Total Protein Albumin Urine WBC (Auto) Urine Creatinine Urine Total Protein Coronavirus (PCR) Chest x-ray: pending Allied health notes reviewed: RT
--- NOTE | 2020-06-19 16:30 | XRay Report ---
ABDOMEN 1 VIEW(S) INDICATION / CLINICAL INFORMATION: NGT confirmation. COMPARISON: None available. FINDINGS: TUBES / LINES: The distal tip of the feeding tube terminates in the mid stomach. BOWEL GAS PATTERN: No significant abnormality. FREE AIR / EXTRALUMINAL GAS: None seen. ADDITIONAL FINDINGS: No significant additional findings. IMPRESSION: No significant abnormality. Feeding tube as described. Signer Name: Andrew Sandoval Jr, MD Signed: 06/19/2020 4:26 PM Workstation Name: [id number]
[2020-06-19] MEDS: INSULIN GLARGINE 100 UNITS/ML SUB-Q SCH (22:47)
[2020-06-19] MEDS: APIXABAN 5 MG TAB PO SCH (22:48)
[2020-06-19] MEDS: QUEtiapine 25 MG TAB PO SCH (22:48)
[2020-06-20] MEDS: INSULIN LISPRO 100 UNIT/ML VIAL 3 mL SUB-Q SCH ×4 (01:23→17:25)
[2020-06-20] MEDS: METOCLOPRAMIDE 10 MG/2 ML INJ IV SCH ×3 (02:59→14:40)
[2020-06-20] MEDS: cloNIDine 0.2 MG TAB PO SCH ×3 (05:10→21:35)
[2020-06-20] MEDS: hydrALAZINE 25 MG TAB PO SCH ×3 (05:10→21:32)
[2020-06-20] MEDS: GLYCOPYRROLATE 2 MG TAB PO SCH ×3 (08:00→21:35)
[2020-06-20] MEDS: levETIRAcetam 500 MG/5 ML ORAL LIQD PO SCH ×2 (09:44→21:32)
[2020-06-20] MEDS: carvediloL 12.5 MG TAB PO SCH ×2 (09:44→21:33)
[2020-06-20] MEDS: APIXABAN 5 MG TAB PO SCH ×2 (09:44→21:32)
[2020-06-20] MEDS: amLODIPine 10 MG TAB PO SCH (09:44)
[2020-06-20] MEDS: LANSOPRAZOLE 30 MG SOLUTAB FEEDTUBE SCH ×2 (09:45→21:32)
[2020-06-20] MEDS: SODIUM BICARBONATE 650 MG TAB PO SCH ×2 (09:45→21:32)
[2020-06-20] MEDS: SENNOSIDES ORAL LIQD 8.8 MG/5 ML ORAL LIQD FEEDTUBE SCH ×2 (09:45→21:33)
[2020-06-20] MEDS: SCOPOLAMINE TRANSDERMAL PATCH 72 HR TD SCH (09:46)
--- NOTE | 2020-06-20 11:57 | Progress Note ---
Assessment and Plan - Patient Problems (1) Acute kidney injury (AVANI) with acute tubular necrosis (ATN) Current Visit: Yes Status: Acute Plan to address problem: renal function remained stable with continued improvement in renal parameters. No new labs this am. Will continue to monitor. (2) Acute hypoxemic respiratory failure Current Visit: Yes Status: Acute Plan to address problem: management per pulmonary team. Extubated, remains on HFNC. (3) Volume overload Current Visit: Yes Status: Acute Plan to address problem: Lasix currently on hold secondary to hypernatremia. Will monitor. (4) Pneumonia due to COVID-19 virus Current Visit: Yes Status: Acute Plan to address problem: management per ID recommendations. Complete course of remdesivir and steroids. (5) Hyperkalemia Current Visit: Yes Status: Acute Plan to address problem: in the setting of acute kidney injury. Most recent labs showed stable potassium levels. We will be monitoring very closely. Subjective Date of service: 06/20/20 Principal diagnosis: Ac hypoxemic resp failure; COVID-19; pneumonia; CHF; Pulm HTN; OHS; DM II Interval history: Remains on HFNC per nursing staff. No acute changes otherwise overnight. No new labs this am. Objective - Exam Narrative Exam: patient was not directly examined secondary to preservation of PPE - Vital Signs Vital signs: Vital Signs - 12hr 06/20/20 05:08 Temperature 99.3 F Pulse Rate 95 H Respiratory 22 Rate Blood Pressure 143/49 O2 Sat by Pulse 89 Oximetry - Lab 06/15/20 04:24 06/18/20 04:42 Most recent lab results ABG pH 7.409 pH Units (7.350-7.450) 06/12/20 09:20 ABG pCO2 42.0 mm Hg 06/12/20 09:20 ABG pO2 91.1 mm Hg (80.0-90.0) H 06/12/20 09:20 ABG HCO3 25.9 mmol/L (20.0-26.0) 06/12/20 09:20 ABG O2 Saturation 97.0 % (95.0-99.0) 06/12/20 09:20 Calcium 9.3 mg/dL (8.4-10.2) 06/18/20 04:42 Urine Creatinine 82.2 mg/dL (0.1-20.0) H 06/06/20 04:00 Urine Sodium 20 mmol/L 06/06/20 04:00 Urine Total Protein 196 mg/dL (5-11.8) H 06/06/20 04:00 Medications & Allergies - Medications Allergies/Adverse Reactions: Allergies No Known Allergies Allergy (Verified 01/21/20 12:28) Home Medications: Home Medications Medication Instructions Recorded Confirmed Last Taken Type AtorvaSTATin [Lipitor] 20 mg PO QHS 05/12/20 05/29/20 Unknown History lisinopriL [Zestril TAB] 40 mg PO QDAY 05/12/20 05/29/20 Unknown History metFORMIN [Glucophage] 850 mg PO BID 05/12/20 05/29/20 Unknown History Acetaminophen [Acetaminophen TAB] 650 mg PO Q4H PRN tablet 05/13/20 05/29/20 Unknown Rx Dicyclomine [Bentyl] 20 mg PO BID #20 tablet 05/13/20 05/29/20 Unknown Rx Famotidine [Pepcid] 20 mg PO BID #30 tablet 05/13/20 05/29/20 Unknown Rx carvediloL [Coreg] 6.25 mg PO BID #60 05/13/20 05/29/20 Unknown Rx Active Medications: Generic Name Dose Route Start Last Admin Trade Name Freq PRN Reason Stop Dose Admin Acetaminophen 650 mg 06/09/20 10:57 06/09/20 20:28 Tylenol FEEDTUBE 650 mg Q6H PRN Administration Fever >101 Amlodipine Besylate 10 mg 06/02/20 11:00 06/20/20 09:44 Amlodipine PO 10 mg DAILY NELSON Administration Lipase/Protease/Amylase 1 each 05/29/20 13:39 Pancreaze 10,500 Unit FEEDTUBE PRN PRN For Clogged Feeding Tube Apixaban 5 mg 06/19/20 22:00 06/20/20 09:44 Eliquis PO 5 mg Q12HR NELSON Administration Protocol Carvedilol 12.5 mg 06/03/20 10:00 06/20/20 09:44 Coreg PO 12.5 mg BID NELSON Administration Clonidine HCl 0.2 mg 06/04/20 06:00 06/20/20 05:10 Catapres PO 0.2 mg Q8HR NELSON Administration Glycopyrrolate 2 mg 06/09/20 14:00 06/20/20 08:00 Glycopyrrolate PO 2 mg TID NELSON Administration Hydralazine HCl 50 mg 06/03/20 09:00 06/20/20 05:10 Apresoline PO 50 mg Q8HR NELSON Administration Hydrophilic Ointment 1 applic 05/28/20 13:49 Vaseline Lip Therapy TP Q2HR PRN Dry Lips Insulin Glargine 10 units 06/08/20 22:00 06/19/20 22:47 Lantus SUB-Q 10 units QHS NELSON Administration Insulin Human Lispro 0 unit 05/29/20 18:00 06/20/20 05:10 Humalog SUB-Q 4 unit Q6H NELSON Administration Protocol Labetalol HCl 20 mg 06/03/20 09:00 06/08/20 23:51 Labetalol IV 20 mg Q4H PRN Administration HYPERTENSION Lansoprazole 30 mg 06/05/20 22:00 06/20/20 09:45 Prevacid Solutab FEEDTUBE 30 mg BID NELSON Administration Levetiracetam 500 mg 06/16/20 11:00 06/20/20 09:44 Keppra PO 500 mg BID NELSON Administration Metoclopramide HCl 10 mg 06/10/20 20:00 06/20/20 08:00 Reglan IV 10 mg Q6H NELSON Administration Multi-Ingred Cream/Lotion/Oil/Oint 1 applic 05/28/20 13:49 Artificial Tears Ophth Oint OU Q4HR PRN Dry Eye(s) Ondansetron HCl 4 mg 06/02/20 09:00 06/09/20 16:48 Zofran IV 4 mg Q8H PRN Administration Nausea And Vomiting Quetiapine Fumarate 50 mg 06/14/20 22:00 06/19/20 22:48 Seroquel PO 50 mg QHS NELSON Administration Scopolamine 1 each 06/05/20 14:00 06/20/20 09:46 Transderm-Scop TD 1 each Q3D NELSON Administration Senna 17.6 mg 06/03/20 10:00 06/20/20 09:45 Senokot FEEDTUBE 17.6 mg BID NELSON Administration Simple Syrup 15 ml 05/29/20 13:39 Simple Syrup FEEDTUBE PRN PRN Hypoglycemia Simple Syrup 30 ml 05/29/20 13:39 Simple Syrup FEEDTUBE PRN PRN Hypoglycemia Sodium Bicarbonate 325 mg 05/29/20 13:39 Sodium Bicarbonate FEEDTUBE PRN PRN For Clogged Feeding Tube Sodium Bicarbonate 650 mg 06/06/20 10:00 06/20/20 09:45 Sodium Bicarbonate PO 650 mg BID NELSON Administration Sodium Chloride 10 ml 05/28/20 22:00 06/20/20 09:46 Sodium Chloride Flush Syringe 10 Ml IV 10 ml BID NELSON Administration Sodium Chloride 10 ml 05/28/20 19:08 06/16/20 17:50 Sodium Chloride Flush Syringe 10 Ml IV 10 ml PRN PRN Administration LINE FLUSH
--- NOTE | 2020-06-20 13:28 | Progress Note ---
Assessment and Plan Acute hypoxemic respiratory failure on MVS Coronavirus-19 infection. Bilateral pulmonary infiltrates, bilateral pneumonia plus likely element of Pulmonary edema. Bilateral pulmonary edema. Bilateral pleural effusions. History of congestive heart failure. Morbid obesity. History of pulmonary hypertension. History of hypertension. Diabetes. Obesity hypoventilation syndrome. Elevated serum inflammatory markers to include D-dimers and LDH levels. Hyperkalemia at presentation. Metabolic acidosis. Oropharyngeal dysphagia. - ABG without significant hypercapnia and compensated - continue BIPAP scheduled qhs with prn daytime use - continue care as below otherwise; - advance diet per ARCHITECTURAL REPRESENTATIVE team - continue Robinul and scopolamine for secretions control - continue COVID-19 isolation per protocol - strict I's and O's - continue to wean supplemental oxygen for target O2 sat's > 90% acutely - continue aspiration precautions - continue lung protective strategies - continue bronchodilators with pulmonary hygiene per RT - wean per pulmonary driven protocols otherwise - continue accuchecks with glycemic control per SSI for target BG <180 mg/dL; avoid hypoglycemia - continue to avoid benzodiazepine's, reduce the possibility of delirium - azotemia per nephrology - continue to avoid nephrotoxins and renally dose all medications - completed AB's per ID rec's - continue Reglan for GI motility issues - prn analgesia per pain score - Maintenance of sleep-wake cycle, avoid delirium - continue enteral nutritional support at goal rate as tolerated - G.I. & VTE prophylaxis - PT/OT/ROM exercises - continue mobility protocols for pressure ulcer prophylaxis - Monitor hemodynamics closely - continue other care per attending / other consultants - discharge planning ongoing concurrently - OK to transfer to medical floor .... Re-evaluate in am & prn Subjective Date of service: 06/20/20 Principal diagnosis: Ac hypoxemic resp failure; COVID-19; pneumonia; CHF; Pulm HTN; OHS; DM II Interval history: Patient is seen today for: Ac hypoxemic resp failure; Coronavirus-19 infection; pneumonia; Pulmonary edema; Bilateral pleural effusions; CHF; Morbid obesity; pulmonary hypertension; OHS; DM II Seen and examined at bedside; 24hour events reviewed; nursing and respiratory care staff consulted; no adverse overnight events reported to me; resting peacefully in bed; FiO2 remains at 30% but remains lethargic; no N/V/F/C Objective Vital Signs - 12hr 06/20/20 06/20/20 06/20/20 05:08 10:55 11:48 Temperature 99.3 F 99.3 F Pulse Rate 95 H 75 Respiratory 22 22 Rate Blood Pressure 143/49 128/52 O2 Sat by Pulse 89 96 98 Oximetry Constitutional: no acute distress, other (elderly looking obese female on HFNC with mildly increased respiratory effort at rest) Eyes: non-icteric ENT: oropharynx moist, other (extubated) Neck: supple, no lymphadenopathy, no JVD, other (large neck circumference) Effort: mildly labored Ascultation: Bilateral: diminished breath sounds, rhonchi (scant) Percussion: Bilateral: not dull Cardiovascular: regular rate and rhythm, other (S1,S2) Gastrointestinal: normoactive bowel sounds, soft, non-tender, non-distended Integumentary: normal Extremities: no cyanosis, no edema, pink and warm, pulses normal, no ischemia or petechiae Neurologic: non-focal exam (grossly), pupils equal and round, other (lethargic) Psychiatric: other (unable to assess re: AMS) CBC and BMP: 06/15/20 04:24 06/18/20 04:42 ABG, PT/INR, D-dimer: ABG ABG pH 7.409 pH Units (7.350-7.450) 06/12/20 09:20 POC ABG pCO2 37.4 mmHg (32.0-48.0) 06/11/20 11:11 ABG pCO2 42.0 mm Hg 06/12/20 09:20 POC ABG pO2 101.9 mmHg (83-108) 06/11/20 11:11 ABG pO2 91.1 mm Hg (80.0-90.0) H 06/12/20 09:20 ABG O2 Saturation 97.0 % (95.0-99.0) 06/12/20 09:20 PT/INR, D-dimer PT 14.2 Sec. (12.2-14.9) 05/29/20 15:10 INR 1.08 (0.87-1.13) 05/29/20 15:10 D-Dimer 414.52 ng/mlDDU (0-234) H 06/04/20 04:19 Abnormal lab findings: Abnormal Labs 05/28/20 05/28/20 05/28/20 13:29 13:47 13:47 WBC RBC Hgb Hct RDW 15.3 H Lymph % (Auto) [place] % (Auto) Eos % (Auto) Lymph # [place] # Seg Neutrophils % Seg Neuts % (Manual) Lymphocytes % (Manual) Seg Neutrophils # Seg Neutrophils # Man Lymphocytes # (Manual) Monocytes # (Manual) D-Dimer Heparin Anti-Xa Level ABG pH ABG pO2 ABG HCO3 ABG O2 Saturation ABG Base Excess ABG Hemoglobin VBG pH Oxyhemoglobin Sodium Potassium 6.6 H* Chloride 109.2 H Carbon Dioxide 17 L BUN 29 H Creatinine 1.3 H Glucose 265 H POC Glucose 248 H Lactic Acid Calcium 8.1 L AST 63 H Alkaline Phosphatase Lactate Dehydrogenase Total Creatine Kinase 301 H CK-MB (CK-2) 4.3 H C-Reactive Protein Total Protein 5.4 L Albumin 2.6 L Urine WBC (Auto) Urine Creatinine Urine Total Protein Coronavirus (PCR) 05/28/20 05/28/20 05/28/20 13:47 13:47 14:46 WBC RBC Hgb Hct RDW Lymph % (Auto) [place] % (Auto) Eos % (Auto) Lymph # [place] # Seg Neutrophils % Seg Neuts % (Manual) Lymphocytes % (Manual) Seg Neutrophils # Seg Neutrophils # Man Lymphocytes # (Manual) Monocytes # (Manual) D-Dimer Heparin Anti-Xa Level ABG pH ABG pO2 ABG HCO3 ABG O2 Saturation ABG Base Excess ABG Hemoglobin VBG pH 7.152 L* Oxyhemoglobin Sodium Potassium 7.2 H* Chloride Carbon Dioxide BUN Creatinine Glucose POC Glucose Lactic Acid 3.40 H* Calcium AST Alkaline Phosphatase Lactate Dehydrogenase Total Creatine Kinase CK-MB (CK-2) C-Reactive Protein Total Protein Albumin Urine WBC (Auto) Urine Creatinine Urine Total Protein Coronavirus (PCR) 05/28/20 05/28/20 05/28/20 15:33 15:33 15:51 WBC RBC Hgb Hct RDW Lymph % (Auto) [place] % (Auto) Eos % (Auto) Lymph # [place] # Seg Neutrophils % Seg Neuts % (Manual) Lymphocytes % (Manual) Seg Neutrophils # Seg Neutrophils # Man Lymphocytes # (Manual) Monocytes # (Manual) D-Dimer 8780.43 H Heparin Anti-Xa Level ABG pH 7.284 L ABG pO2 273.0 H ABG HCO3 ABG O2 Saturation 99.4 H ABG Base Excess -6.1 L ABG Hemoglobin 17.2 H VBG pH Oxyhemoglobin Sodium Potassium Chloride Carbon Dioxide BUN Creatinine Glucose 152 H POC Glucose Lactic Acid Calcium AST Alkaline Phosphatase Lactate Dehydrogenase 365 H Total Creatine Kinase CK-MB (CK-2) C-Reactive Protein Total Protein Albumin Urine WBC (Auto) Urine Creatinine Urine Total Protein Coronavirus (PCR) 05/28/20 05/28/20 05/28/20 16:30 20:41 23:20 WBC RBC Hgb Hct RDW Lymph % (Auto) [place] % (Auto) Eos % (Auto) Lymph # [place] # Seg Neutrophils % Seg Neuts % (Manual) Lymphocytes % (Manual) Seg Neutrophils # Seg Neutrophils # Man Lymphocytes # (Manual) Monocytes # (Manual) D-Dimer Heparin Anti-Xa Level ABG pH ABG pO2 ABG HCO3 ABG O2 Saturation ABG Base Excess ABG Hemoglobin VBG pH Oxyhemoglobin Sodium Potassium Chloride Carbon Dioxide BUN Creatinine Glucose POC Glucose 225 H 224 H Lactic Acid Calcium AST Alkaline Phosphatase Lactate Dehydrogenase Total Creatine Kinase CK-MB (CK-2) C-Reactive Protein Total Protein Albumin Urine WBC (Auto) 17.0 H Urine Creatinine Urine Total Protein Coronavirus (PCR) 05/28/20 05/29/20 05/29/20 Unknown 04:35 04:43 WBC RBC 3.48 L Hgb 9.8 L Hct 29.4 L RDW 16.0 H Lymph % (Auto) 7.4 L [place] % (Auto) Eos % (Auto) Lymph # 0.7 L [place] # Seg Neutrophils % 89.1 H Seg Neuts % (Manual) Lymphocytes % (Manual) Seg Neutrophils # 8.1 H Seg Neutrophils # Man Lymphocytes # (Manual) Monocytes # (Manual) D-Dimer Heparin Anti-Xa Level ABG pH ABG pO2 ABG HCO3 19.3 L ABG O2 Saturation ABG Base Excess -4.5 L ABG Hemoglobin 9.7 L VBG pH Oxyhemoglobin Sodium Potassium Chloride Carbon Dioxide BUN Creatinine Glucose POC Glucose Lactic Acid Calcium AST Alkaline Phosphatase Lactate Dehydrogenase Total Creatine Kinase CK-MB (CK-2) C-Reactive Protein Total Protein Albumin Urine WBC (Auto) Urine Creatinine Urine Total Protein Coronavirus (PCR) Positive A 05/29/20 05/29/20 05/29/20 04:43 15:10 17:17 WBC RBC Hgb 9.3 L Hct 28.7 L RDW Lymph % (Auto) [place] % (Auto) Eos % (Auto) Lymph # [place] # Seg Neutrophils % Seg Neuts % (Manual) Lymphocytes % (Manual) Seg Neutrophils # Seg Neutrophils # Man Lymphocytes # (Manual) Monocytes # (Manual) D-Dimer Heparin Anti-Xa Level ABG pH ABG pO2 ABG HCO3 ABG O2 Saturation ABG Base Excess ABG Hemoglobin VBG pH Oxyhemoglobin Sodium Potassium Chloride 110.2 H Carbon Dioxide 18 L BUN 32 H Creatinine 1.4 H Glucose 180 H POC Glucose 147 H Lactic Acid Calcium AST Alkaline Phosphatase Lactate Dehydrogenase Total Creatine Kinase CK-MB (CK-2) C-Reactive Protein Total Protein Albumin Urine WBC (Auto) Urine Creatinine Urine Total Protein Coronavirus (PCR) 05/30/20 05/30/20 05/30/20 00:08 00:12 04:15 WBC RBC Hgb Hct RDW Lymph % (Auto) [place] % (Auto) Eos % (Auto) Lymph # [place] # Seg Neutrophils % Seg Neuts % (Manual) Lymphocytes % (Manual) Seg Neutrophils # Seg Neutrophils # Man Lymphocytes # (Manual) Monocytes # (Manual) D-Dimer Heparin Anti-Xa Level 0.71 H ABG pH 7.460 H ABG pO2 106.0 H ABG HCO3 18.9 L ABG O2 Saturation ABG Base Excess -4.4 L ABG Hemoglobin 6.8 L VBG pH Oxyhemoglobin Sodium Potassium Chloride Carbon Dioxide BUN Creatinine Glucose POC Glucose 195 H Lactic Acid Calcium AST Alkaline Phosphatase Lactate Dehydrogenase Total Creatine Kinase CK-MB (CK-2) C-Reactive Protein Total Protein Albumin Urine WBC (Auto) Urine Creatinine Urine Total Protein Coronavirus (PCR) 05/30/20 05/30/20 05/30/20 06:07 08:37 12:33 WBC RBC Hgb Hct RDW Lymph % (Auto) [place] % (Auto) Eos % (Auto) Lymph # [place] # Seg Neutrophils % Seg Neuts % (Manual) Lymphocytes % (Manual) Seg Neutrophils # Seg Neutrophils # Man Lymphocytes # (Manual) Monocytes # (Manual) D-Dimer Heparin Anti-Xa Level 0.85 H ABG pH ABG pO2 ABG HCO3 ABG O2 Saturation ABG Base Excess ABG Hemoglobin VBG pH Oxyhemoglobin Sodium Potassium Chloride Carbon Dioxide BUN Creatinine Glucose POC Glucose 182 H 187 H Lactic Acid Calcium AST Alkaline Phosphatase Lactate Dehydrogenase Total Creatine Kinase CK-MB (CK-2) C-Reactive Protein Total Protein Albumin Urine WBC (Auto) Urine Creatinine Urine Total Protein Coronavirus (PCR) 05/30/20 05/30/20 05/30/20 15:58 17:57 23:36 WBC RBC Hgb Hct RDW Lymph % (Auto) [place] % (Auto) Eos % (Auto) Lymph # [place] # Seg Neutrophils % Seg Neuts % (Manual) Lymphocytes % (Manual) Seg Neutrophils # Seg Neutrophils # Man Lymphocytes # (Manual) Monocytes # (Manual) D-Dimer Heparin Anti-Xa Level 1.03 H ABG pH ABG pO2 ABG HCO3 ABG O2 Saturation ABG Base Excess ABG Hemoglobin VBG pH Oxyhemoglobin Sodium Potassium Chloride Carbon Dioxide BUN Creatinine Glucose POC Glucose 208 H 185 H Lactic Acid Calcium AST Alkaline Phosphatase Lactate Dehydrogenase Total Creatine Kinase CK-MB (CK-2) C-Reactive Protein Total Protein Albumin Urine WBC (Auto) Urine Creatinine Urine Total Protein Coronavirus (PCR) 05/31/20 05/31/20 05/31/20 02:16 03:55 06:16 WBC RBC Hgb 9.2 L Hct 27.5 L RDW Lymph % (Auto) [place] % (Auto) Eos % (Auto) Lymph # [place] # Seg Neutrophils % Seg Neuts % (Manual) Lymphocytes % (Manual) Seg Neutrophils # Seg Neutrophils # Man Lymphocytes # (Manual) Monocytes # (Manual) D-Dimer Heparin Anti-Xa Level ABG pH ABG pO2 94.7 H ABG HCO3 18.6 L ABG O2 Saturation ABG Base Excess -5.5 L ABG Hemoglobin 7.9 L VBG pH Oxyhemoglobin Sodium Potassium Chloride Carbon Dioxide BUN Creatinine Glucose POC Glucose 160 H Lactic Acid Calcium AST Alkaline Phosphatase Lactate Dehydrogenase Total Creatine Kinase CK-MB (CK-2) C-Reactive Protein Total Protein Albumin Urine WBC (Auto) Urine Creatinine Urine Total Protein Coronavirus (PCR) 05/31/20 05/31/20 05/31/20 12:20 13:03 18:13 WBC RBC Hgb Hct RDW Lymph % (Auto) [place] % (Auto) Eos % (Auto) Lymph # [place] # Seg Neutrophils % Seg Neuts % (Manual) Lymphocytes % (Manual) Seg Neutrophils # Seg Neutrophils # Man Lymphocytes # (Manual) Monocytes # (Manual) D-Dimer Heparin Anti-Xa Level ABG pH ABG pO2 ABG HCO3 ABG O2 Saturation ABG Base Excess ABG Hemoglobin VBG pH Oxyhemoglobin Sodium Potassium Chloride Carbon Dioxide 18 L BUN 48 H Creatinine 1.6 H Glucose 115 H POC Glucose 128 H 159 H Lactic Acid Calcium 8.3 L AST Alkaline Phosphatase Lactate Dehydrogenase Total Creatine Kinase CK-MB (CK-2) C-Reactive Protein Total Protein 5.4 L Albumin 2.4 L Urine WBC (Auto) Urine Creatinine Urine Total Protein Coronavirus (PCR) 05/31/20 06/01/20 06/01/20 23:51 04:00 05:48 WBC RBC Hgb Hct RDW Lymph % (Auto) [place] % (Auto) Eos % (Auto) Lymph # [place] # Seg Neutrophils % Seg Neuts % (Manual) Lymphocytes % (Manual) Seg Neutrophils # Seg Neutrophils # Man Lymphocytes # (Manual) Monocytes # (Manual) D-Dimer Heparin Anti-Xa Level ABG pH ABG pO2 109.8 H ABG HCO3 18.8 L ABG O2 Saturation ABG Base Excess -5.9 L ABG Hemoglobin 7.8 L VBG pH Oxyhemoglobin Sodium Potassium Chloride Carbon Dioxide BUN Creatinine Glucose POC Glucose 171 H 133 H Lactic Acid Calcium AST Alkaline Phosphatase Lactate Dehydrogenase Total Creatine Kinase CK-MB (CK-2) C-Reactive Protein Total Protein Albumin Urine WBC (Auto) Urine Creatinine Urine Total Protein Coronavirus (PCR) 06/01/20 06/01/20 06/02/20 12:28 17:29 00:08 WBC RBC Hgb Hct RDW Lymph % (Auto) [place] % (Auto) Eos % (Auto) Lymph # [place] # Seg Neutrophils % Seg Neuts % (Manual) Lymphocytes % (Manual) Seg Neutrophils # Seg Neutrophils # Man Lymphocytes # (Manual) Monocytes # (Manual) D-Dimer Heparin Anti-Xa Level ABG pH ABG pO2 ABG HCO3 ABG O2 Saturation ABG Base Excess ABG Hemoglobin VBG pH Oxyhemoglobin Sodium Potassium Chloride Carbon Dioxide BUN Creatinine Glucose POC Glucose 199 H 209 H 162 H Lactic Acid Calcium AST Alkaline Phosphatase Lactate Dehydrogenase Total Creatine Kinase CK-MB (CK-2) C-Reactive Protein Total Protein Albumin Urine WBC (Auto) Urine Creatinine Urine Total Protein Coronavirus (PCR) 06/02/20 06/02/20 06/02/20 04:20 04:20 04:44 WBC RBC Hgb 10.0 L Hct RDW Lymph % (Auto) [place] % (Auto) Eos % (Auto) Lymph # [place] # Seg Neutrophils % Seg Neuts % (Manual) Lymphocytes % (Manual) Seg Neutrophils # Seg Neutrophils # Man Lymphocytes # (Manual) Monocytes # (Manual) D-Dimer Heparin Anti-Xa Level 0.10 L ABG pH ABG pO2 150.6 H ABG HCO3 ABG O2 Saturation ABG Base Excess -4.1 L ABG Hemoglobin 11.8 L VBG pH Oxyhemoglobin Sodium Potassium Chloride Carbon Dioxide BUN Creatinine Glucose POC Glucose Lactic Acid Calcium AST Alkaline Phosphatase Lactate Dehydrogenase Total Creatine Kinase CK-MB (CK-2) C-Reactive Protein Total Protein Albumin Urine WBC (Auto) Urine Creatinine Urine Total Protein Coronavirus (PCR) 06/02/20 06/02/20 06/02/20 05:53 12:04 13:49 WBC RBC Hgb Hct RDW Lymph % (Auto) [place] % (Auto) Eos % (Auto) Lymph # [place] # Seg Neutrophils % Seg Neuts % (Manual) Lymphocytes % (Manual) Seg Neutrophils # Seg Neutrophils # Man Lymphocytes # (Manual) Monocytes # (Manual) D-Dimer Heparin Anti-Xa Level 0.28 L ABG pH ABG pO2 ABG HCO3 ABG O2 Saturation ABG Base Excess ABG Hemoglobin VBG pH Oxyhemoglobin Sodium Potassium Chloride Carbon Dioxide BUN Creatinine Glucose POC Glucose 149 H 220 H Lactic Acid Calcium AST Alkaline Phosphatase Lactate Dehydrogenase Total Creatine Kinase CK-MB (CK-2) C-Reactive Protein Total Protein Albumin Urine WBC (Auto) Urine Creatinine Urine Total Protein Coronavirus (PCR) 06/02/20 06/02/20 06/03/20 13:49 18:31 00:42 WBC RBC Hgb Hct RDW Lymph % (Auto) [place] % (Auto) Eos % (Auto) Lymph # [place] # Seg Neutrophils % Seg Neuts % (Manual) Lymphocytes % (Manual) Seg Neutrophils # Seg Neutrophils # Man Lymphocytes # (Manual) Monocytes # (Manual) D-Dimer 769.68 H Heparin Anti-Xa Level ABG pH ABG pO2 ABG HCO3 ABG O2 Saturation ABG Base Excess ABG Hemoglobin VBG pH Oxyhemoglobin Sodium Potassium Chloride Carbon Dioxide BUN Creatinine Glucose POC Glucose 225 H 212 H Lactic Acid Calcium AST Alkaline Phosphatase Lactate Dehydrogenase Total Creatine Kinase CK-MB (CK-2) C-Reactive Protein Total Protein Albumin Urine WBC (Auto) Urine Creatinine Urine Total Protein Coronavirus (PCR) 06/03/20 06/03/20 06/03/20 05:16 05:16 05:25 WBC 11.4 H RBC Hgb Hct RDW 16.4 H Lymph % (Auto) [place] % (Auto) Eos % (Auto) Lymph # [place] # Seg Neutrophils % Seg Neuts % (Manual) Lymphocytes % (Manual) Seg Neutrophils # Seg Neutrophils # Man Lymphocytes # (Manual) Monocytes # (Manual) D-Dimer Heparin Anti-Xa Level ABG pH ABG pO2 160.9 H ABG HCO3 19.4 L ABG O2 Saturation ABG Base Excess -4.9 L ABG Hemoglobin 7.0 L VBG pH Oxyhemoglobin Sodium Potassium Chloride Carbon Dioxide 18 L BUN 65 H Creatinine 2.0 H Glucose 175 H POC Glucose Lactic Acid Calcium 8.0 L AST Alkaline Phosphatase Lactate Dehydrogenase Total Creatine Kinase CK-MB (CK-2) C-Reactive Protein Total Protein 5.5 L Albumin 2.2 L Urine WBC (Auto) Urine Creatinine Urine Total Protein Coronavirus (PCR) 06/03/20 06/03/20 06/03/20 06:07 11:58 18:24 WBC RBC Hgb Hct RDW Lymph % (Auto) [place] % (Auto) Eos % (Auto) Lymph # [place] # Seg Neutrophils % Seg Neuts % (Manual) Lymphocytes % (Manual) Seg Neutrophils # Seg Neutrophils # Man Lymphocytes # (Manual) Monocytes # (Manual) D-Dimer Heparin Anti-Xa Level ABG pH ABG pO2 ABG HCO3 ABG O2 Saturation ABG Base Excess ABG Hemoglobin VBG pH Oxyhemoglobin Sodium Potassium Chloride Carbon Dioxide BUN Creatinine Glucose POC Glucose 177 H 163 H 211 H Lactic Acid Calcium AST Alkaline Phosphatase Lactate Dehydrogenase Total Creatine Kinase CK-MB (CK-2) C-Reactive Protein Total Protein Albumin Urine WBC (Auto) Urine Creatinine Urine Total Protein Coronavirus (PCR) 06/03/20 06/03/20 06/04/20 21:50 Unknown 00:26 WBC RBC Hgb Hct RDW Lymph % (Auto) [place] % (Auto) Eos % (Auto) Lymph # [place] # Seg Neutrophils % Seg Neuts % (Manual) Lymphocytes % (Manual) Seg Neutrophils # Seg Neutrophils # Man Lymphocytes # (Manual) Monocytes # (Manual) D-Dimer Heparin Anti-Xa Level ABG pH ABG pO2 ABG HCO3 ABG O2 Saturation ABG Base Excess ABG Hemoglobin VBG pH Oxyhemoglobin Sodium 135 L Potassium Chloride Carbon Dioxide 18 L BUN Creatinine Glucose POC Glucose 241 H Lactic Acid Calcium AST Alkaline Phosphatase Lactate Dehydrogenase Total Creatine Kinase CK-MB (CK-2) C-Reactive Protein Total Protein Albumin Urine WBC (Auto) 11.0 H Urine Creatinine Urine Total Protein Coronavirus (PCR) 06/04/20 06/04/20 06/04/20 03:35 04:19 04:19 WBC RBC 3.15 L Hgb 8.9 L Hct 26.8 L D RDW 15.9 H Lymph % (Auto) 6.0 L [place] % (Auto) Eos % (Auto) Lymph # 0.6 L [place] # Seg Neutrophils % 86.6 H Seg Neuts % (Manual) Lymphocytes % (Manual) Seg Neutrophils # 9.1 H Seg Neutrophils # Man Lymphocytes # (Manual) Monocytes # (Manual) D-Dimer Heparin Anti-Xa Level ABG pH 7.331 L ABG pO2 ABG HCO3 ABG O2 Saturation ABG Base Excess -4.7 L ABG Hemoglobin 11.0 L VBG pH Oxyhemoglobin 93.9 L Sodium 136 L Potassium Chloride Carbon Dioxide 20 L BUN 73 H Creatinine 2.0 H Glucose 192 H POC Glucose Lactic Acid Calcium 8.0 L AST Alkaline Phosphatase Lactate Dehydrogenase 271 H Total Creatine Kinase CK-MB (CK-2) C-Reactive Protein 2.20 H Total Protein 5.0 L Albumin 2.0 L Urine WBC (Auto) Urine Creatinine Urine Total Protein Coronavirus (PCR) 06/04/20 06/04/20 06/04/20 04:19 05:51 11:48 WBC RBC Hgb Hct RDW Lymph % (Auto) [place] % (Auto) Eos % (Auto) Lymph # [place] # Seg Neutrophils % Seg Neuts % (Manual) Lymphocytes % (Manual) Seg Neutrophils # Seg Neutrophils # Man Lymphocytes # (Manual) Monocytes # (Manual) D-Dimer 414.52 H Heparin Anti-Xa Level ABG pH ABG pO2 ABG HCO3 ABG O2 Saturation ABG Base Excess ABG Hemoglobin VBG pH Oxyhemoglobin Sodium Potassium Chloride Carbon Dioxide BUN Creatinine Glucose POC Glucose 179 H 213 H Lactic Acid Calcium AST Alkaline Phosphatase Lactate Dehydrogenase Total Creatine Kinase CK-MB (CK-2) C-Reactive Protein Total Protein Albumin Urine WBC (Auto) Urine Creatinine Urine Total Protein Coronavirus (PCR) 06/04/20 06/05/20 06/05/20 18:25 00:16 05:00 WBC RBC Hgb Hct RDW Lymph % (Auto) [place] % (Auto) Eos % (Auto) Lymph # [place] # Seg Neutrophils % Seg Neuts % (Manual) Lymphocytes % (Manual) Seg Neutrophils # Seg Neutrophils # Man Lymphocytes # (Manual) Monocytes # (Manual) D-Dimer Heparin Anti-Xa Level ABG pH 7.286 L ABG pO2 96.2 H ABG HCO3 ABG O2 Saturation ABG Base Excess -6.3 L ABG Hemoglobin 8.8 L VBG pH Oxyhemoglobin 94.8 L Sodium Potassium Chloride Carbon Dioxide BUN Creatinine Glucose POC Glucose 238 H 183 H Lactic Acid Calcium AST Alkaline Phosphatase Lactate Dehydrogenase Total Creatine Kinase CK-MB (CK-2) C-Reactive Protein Total Protein Albumin Urine WBC (Auto) Urine Creatinine Urine Total Protein Coronavirus (PCR) 06/05/20 06/05/20 06/05/20 05:39 07:25 07:25 WBC RBC 2.97 L Hgb 8.7 L Hct 25.7 L RDW 16.0 H Lymph % (Auto) 8.8 L [place] % (Auto) 13.3 H Eos % (Auto) Lymph # 0.8 L [place] # 1.3 H Seg Neutrophils % 77.3 H Seg Neuts % (Manual) Lymphocytes % (Manual) Seg Neutrophils # Seg Neutrophils # Man Lymphocytes # (Manual) Monocytes # (Manual) D-Dimer Heparin Anti-Xa Level ABG pH ABG pO2 ABG HCO3 ABG O2 Saturation ABG Base Excess ABG Hemoglobin VBG pH Oxyhemoglobin Sodium 133 L Potassium Chloride Carbon Dioxide 17 L BUN 89 H Creatinine 2.8 H Glucose 176 H POC Glucose 149 H Lactic Acid Calcium 7.7 L AST Alkaline Phosphatase Lactate Dehydrogenase Total Creatine Kinase CK-MB (CK-2) C-Reactive Protein Total Protein 4.2 L Albumin 1.9 L Urine WBC (Auto) Urine Creatinine Urine Total Protein Coronavirus (PCR) 06/05/20 06/05/20 06/05/20 07:25 12:05 15:41 WBC RBC Hgb Hct RDW Lymph % (Auto) [place] % (Auto) Eos % (Auto) Lymph # [place] # Seg Neutrophils % Seg Neuts % (Manual) Lymphocytes % (Manual) Seg Neutrophils # Seg Neutrophils # Man Lymphocytes # (Manual) Monocytes # (Manual) D-Dimer Heparin Anti-Xa Level 0.76 H 0.81 H ABG pH ABG pO2 ABG HCO3 ABG O2 Saturation ABG Base Excess ABG Hemoglobin VBG pH Oxyhemoglobin Sodium Potassium Chloride Carbon Dioxide BUN Creatinine Glucose POC Glucose 198 H Lactic Acid Calcium AST Alkaline Phosphatase Lactate Dehydrogenase Total Creatine Kinase CK-MB (CK-2) C-Reactive Protein Total Protein Albumin Urine WBC (Auto) Urine Creatinine Urine Total Protein Coronavirus (PCR) 06/05/20 06/05/20 06/06/20 18:08 23:25 04:00 WBC RBC Hgb Hct RDW Lymph % (Auto) [place] % (Auto) Eos % (Auto) Lymph # [place] # Seg Neutrophils % Seg Neuts % (Manual) Lymphocytes % (Manual) Seg Neutrophils # Seg Neutrophils # Man Lymphocytes # (Manual) Monocytes # (Manual) D-Dimer Heparin Anti-Xa Level ABG pH ABG pO2 ABG HCO3 ABG O2 Saturation ABG Base Excess ABG Hemoglobin VBG pH Oxyhemoglobin Sodium Potassium Chloride Carbon Dioxide BUN Creatinine Glucose POC Glucose 223 H 169 H Lactic Acid Calcium AST Alkaline Phosphatase Lactate Dehydrogenase Total Creatine Kinase CK-MB (CK-2) C-Reactive Protein Total Protein Albumin Urine WBC (Auto) 15.0 H Urine Creatinine Urine Total Protein Coronavirus (PCR) 06/06/20 06/06/20 06/06/20 04:00 05:33 05:38 WBC RBC 2.97 L Hgb 8.7 L Hct 26.8 L RDW 16.8 H Lymph % (Auto) [place] % (Auto) Eos % (Auto) Lymph # [place] # Seg Neutrophils % Seg Neuts % (Manual) Lymphocytes % (Manual) Seg Neutrophils # Seg Neutrophils # Man Lymphocytes # (Manual) Monocytes # (Manual) D-Dimer Heparin Anti-Xa Level ABG pH ABG pO2 ABG HCO3 ABG O2 Saturation ABG Base Excess ABG Hemoglobin VBG pH Oxyhemoglobin Sodium Potassium Chloride Carbon Dioxide BUN Creatinine Glucose POC Glucose 186 H Lactic Acid Calcium AST Alkaline Phosphatase Lactate Dehydrogenase Total Creatine Kinase CK-MB (CK-2) C-Reactive Protein Total Protein Albumin Urine WBC (Auto) Urine Creatinine 82.2 H Urine Total Protein 196 H Coronavirus (PCR) 06/06/20 06/06/20 06/06/20 05:38 12:25 17:03 WBC RBC Hgb Hct RDW Lymph % (Auto) [place] % (Auto) Eos % (Auto) Lymph # [place] # Seg Neutrophils % Seg Neuts % (Manual) Lymphocytes % (Manual) Seg Neutrophils # Seg Neutrophils # Man Lymphocytes # (Manual) Monocytes # (Manual) D-Dimer Heparin Anti-Xa Level ABG pH ABG pO2 ABG HCO3 ABG O2 Saturation ABG Base Excess ABG Hemoglobin VBG pH Oxyhemoglobin Sodium 134 L Potassium 5.2 H Chloride Carbon Dioxide 18 L BUN 97 H Creatinine 2.5 H Glucose 193 H POC Glucose 239 H 252 H Lactic Acid Calcium 7.5 L AST Alkaline Phosphatase Lactate Dehydrogenase Total Creatine Kinase CK-MB (CK-2) C-Reactive Protein Total Protein 4.1 L Albumin 1.9 L Urine WBC (Auto) Urine Creatinine Urine Total Protein Coronavirus (PCR) 06/07/20 06/07/20 06/07/20 00:16 01:49 04:00 WBC RBC 2.91 L Hgb 8.4 L Hct 25.0 L RDW 16.1 H Lymph % (Auto) 5.7 L [place] % (Auto) 10.5 H Eos % (Auto) Lymph # 0.6 L [place] # 1.1 H Seg Neutrophils % 83.6 H Seg Neuts % (Manual) Lymphocytes % (Manual) Seg Neutrophils # 9.1 H Seg Neutrophils # Man Lymphocytes # (Manual) Monocytes # (Manual) D-Dimer Heparin Anti-Xa Level 0.26 L ABG pH ABG pO2 ABG HCO3 ABG O2 Saturation ABG Base Excess ABG Hemoglobin VBG pH Oxyhemoglobin Sodium Potassium Chloride Carbon Dioxide BUN Creatinine Glucose POC Glucose 173 H Lactic Acid Calcium AST Alkaline Phosphatase Lactate Dehydrogenase Total Creatine Kinase CK-MB (CK-2) C-Reactive Protein Total Protein Albumin Urine WBC (Auto) Urine Creatinine Urine Total Protein Coronavirus (PCR) 06/07/20 06/07/20 06/07/20 04:00 04:54 05:51 WBC RBC Hgb Hct RDW Lymph % (Auto) [place] % (Auto) Eos % (Auto) Lymph # [place] # Seg Neutrophils % Seg Neuts % (Manual) Lymphocytes % (Manual) Seg Neutrophils # Seg Neutrophils # Man Lymphocytes # (Manual) Monocytes # (Manual) D-Dimer Heparin Anti-Xa Level ABG pH 7.317 L ABG pO2 71.4 L ABG HCO3 ABG O2 Saturation 94.3 L ABG Base Excess -4.8 L ABG Hemoglobin 7.1 L VBG pH Oxyhemoglobin 92.2 L Sodium 133 L Potassium Chloride Carbon Dioxide 18 L BUN 100 H Creatinine 2.5 H Glucose 158 H POC Glucose 168 H Lactic Acid Calcium 7.6 L AST Alkaline Phosphatase Lactate Dehydrogenase Total Creatine Kinase CK-MB (CK-2) C-Reactive Protein Total Protein 4.7 L Albumin 2.0 L Urine WBC (Auto) Urine Creatinine Urine Total Protein Coronavirus (PCR) 06/07/20 06/07/20 06/07/20 12:03 17:17 20:10 WBC RBC Hgb Hct RDW Lymph % (Auto) [place] % (Auto) Eos % (Auto) Lymph # [place] # Seg Neutrophils % Seg Neuts % (Manual) Lymphocytes % (Manual) Seg Neutrophils # Seg Neutrophils # Man Lymphocytes # (Manual) Monocytes # (Manual) D-Dimer Heparin Anti-Xa Level 0.17 L ABG pH ABG pO2 ABG HCO3 ABG O2 Saturation ABG Base Excess ABG Hemoglobin VBG pH Oxyhemoglobin Sodium Potassium Chloride Carbon Dioxide BUN Creatinine Glucose POC Glucose 276 H 281 H Lactic Acid Calcium AST Alkaline Phosphatase Lactate Dehydrogenase Total Creatine Kinase CK-MB (CK-2) C-Reactive Protein Total Protein Albumin Urine WBC (Auto) Urine Creatinine Urine Total Protein Coronavirus (PCR) 06/08/20 06/08/20 06/08/20 00:02 04:47 04:47 WBC 16.4 H RBC 3.07 L Hgb 8.6 L Hct 26.5 L RDW 16.3 H Lymph % (Auto) [place] % (Auto) Eos % (Auto) Lymph # [place] # Seg Neutrophils % Seg Neuts % (Manual) 90.0 H Lymphocytes % (Manual) 3.0 L Seg Neutrophils # Seg Neutrophils # Man 14.8 H Lymphocytes # (Manual) 0.5 L Monocytes # (Manual) 1.1 H D-Dimer Heparin Anti-Xa Level ABG pH ABG pO2 ABG HCO3 ABG O2 Saturation ABG Base Excess ABG Hemoglobin VBG pH Oxyhemoglobin Sodium 129 L Potassium Chloride 95.6 L Carbon Dioxide 17 L BUN 106 H Creatinine 2.5 H Glucose 213 H POC Glucose 242 H Lactic Acid Calcium 7.6 L AST Alkaline Phosphatase Lactate Dehydrogenase Total Creatine Kinase CK-MB (CK-2) C-Reactive Protein Total Protein 5.0 L Albumin 2.1 L Urine WBC (Auto) Urine Creatinine Urine Total Protein Coronavirus (PCR) 06/08/20 06/08/20 06/08/20 05:40 11:55 17:54 WBC RBC Hgb Hct RDW Lymph % (Auto) [place] % (Auto) Eos % (Auto) Lymph # [place] # Seg Neutrophils % Seg Neuts % (Manual) Lymphocytes % (Manual) Seg Neutrophils # Seg Neutrophils # Man Lymphocytes # (Manual) Monocytes # (Manual) D-Dimer Heparin Anti-Xa Level ABG pH ABG pO2 ABG HCO3 ABG O2 Saturation ABG Base Excess ABG Hemoglobin VBG pH Oxyhemoglobin Sodium Potassium Chloride Carbon Dioxide BUN Creatinine Glucose POC Glucose 221 H 218 H 163 H Lactic Acid Calcium AST Alkaline Phosphatase Lactate Dehydrogenase Total Creatine Kinase CK-MB (CK-2) C-Reactive Protein Total Protein Albumin Urine WBC (Auto) Urine Creatinine Urine Total Protein Coronavirus (PCR) 06/08/20 06/09/20 06/09/20 22:01 00:09 05:16 WBC 19.0 H RBC 3.35 L Hgb 9.2 L Hct 28.5 L RDW 16.3 H Lymph % (Auto) [place] % (Auto) Eos % (Auto) Lymph # [place] # Seg Neutrophils % Seg Neuts % (Manual) 85.0 H Lymphocytes % (Manual) 7.0 L Seg Neutrophils # Seg Neutrophils # Man 16.2 H Lymphocytes # (Manual) Monocytes # (Manual) 1.3 H D-Dimer Heparin Anti-Xa Level ABG pH ABG pO2 ABG HCO3 ABG O2 Saturation ABG Base Excess ABG Hemoglobin VBG pH Oxyhemoglobin Sodium Potassium Chloride Carbon Dioxide BUN Creatinine Glucose POC Glucose 182 H 150 H Lactic Acid Calcium AST Alkaline Phosphatase Lactate Dehydrogenase Total Creatine Kinase CK-MB (CK-2) C-Reactive Protein Total Protein Albumin Urine WBC (Auto) Urine Creatinine Urine Total Protein Coronavirus (PCR) 06/09/20 06/09/20 06/09/20 05:16 05:24 11:29 WBC RBC Hgb Hct RDW Lymph % (Auto) [place] % (Auto) Eos % (Auto) Lymph # [place] # Seg Neutrophils % Seg Neuts % (Manual) Lymphocytes % (Manual) Seg Neutrophils # Seg Neutrophils # Man Lymphocytes # (Manual) Monocytes # (Manual) D-Dimer Heparin Anti-Xa Level ABG pH ABG pO2 ABG HCO3 ABG O2 Saturation ABG Base Excess ABG Hemoglobin VBG pH Oxyhemoglobin Sodium 133 L Potassium Chloride Carbon Dioxide 19 L BUN 109 H Creatinine 2.1 H Glucose 133 H POC Glucose 128 H 119 H Lactic Acid Calcium 7.7 L AST Alkaline Phosphatase < 5 L Lactate Dehydrogenase Total Creatine Kinase CK-MB (CK-2) C-Reactive Protein Total Protein 4.6 L Albumin < 0.2 L Urine WBC (Auto) Urine Creatinine Urine Total Protein Coronavirus (PCR) 06/09/20 06/10/20 06/10/20 17:32 00:00 05:49 WBC RBC Hgb Hct RDW Lymph % (Auto) [place] % (Auto) Eos % (Auto) Lymph # [place] # Seg Neutrophils % Seg Neuts % (Manual) Lymphocytes % (Manual) Seg Neutrophils # Seg Neutrophils # Man Lymphocytes # (Manual) Monocytes # (Manual) D-Dimer Heparin Anti-Xa Level 0.19 L ABG pH ABG pO2 ABG HCO3 ABG O2 Saturation ABG Base Excess ABG Hemoglobin VBG pH Oxyhemoglobin Sodium Potassium Chloride Carbon Dioxide BUN Creatinine Glucose POC Glucose 106 H 117 H Lactic Acid Calcium AST Alkaline Phosphatase Lactate Dehydrogenase Total Creatine Kinase CK-MB (CK-2) C-Reactive Protein Total Protein Albumin Urine WBC (Auto) Urine Creatinine Urine Total Protein Coronavirus (PCR) 06/10/20 06/10/20 06/10/20 05:54 07:40 11:40 WBC RBC Hgb Hct RDW Lymph % (Auto) [place] % (Auto) Eos % (Auto) Lymph # [place] # Seg Neutrophils % Seg Neuts % (Manual) Lymphocytes % (Manual) Seg Neutrophils # Seg Neutrophils # Man Lymphocytes # (Manual) Monocytes # (Manual) D-Dimer Heparin Anti-Xa Level ABG pH ABG pO2 ABG HCO3 ABG O2 Saturation ABG Base Excess ABG Hemoglobin VBG pH Oxyhemoglobin Sodium 146 H D Potassium Chloride Carbon Dioxide 20 L BUN 99 H Creatinine 1.9 H Glucose 121 H POC Glucose 127 H 138 H Lactic Acid Calcium 8.2 L AST Alkaline Phosphatase Lactate Dehydrogenase Total Creatine Kinase CK-MB (CK-2) C-Reactive Protein Total Protein Albumin Urine WBC (Auto) Urine Creatinine Urine Total Protein Coronavirus (PCR) 06/10/20 06/10/20 06/10/20 14:44 17:31 23:22 WBC RBC Hgb Hct RDW Lymph % (Auto) [place] % (Auto) Eos % (Auto) Lymph # [place] # Seg Neutrophils % Seg Neuts % (Manual) Lymphocytes % (Manual) Seg Neutrophils # Seg Neutrophils # Man Lymphocytes # (Manual) Monocytes # (Manual) D-Dimer Heparin Anti-Xa Level 0.17 L ABG pH ABG pO2 ABG HCO3 ABG O2 Saturation ABG Base Excess ABG Hemoglobin VBG pH Oxyhemoglobin Sodium Potassium Chloride Carbon Dioxide BUN Creatinine Glucose POC Glucose 128 H 114 H Lactic Acid Calcium AST Alkaline Phosphatase Lactate Dehydrogenase Total Creatine Kinase CK-MB (CK-2) C-Reactive Protein Total Protein Albumin Urine WBC (Auto) Urine Creatinine Urine Total Protein Coronavirus (PCR) 06/11/20 06/11/20 06/11/20 00:22 03:45 03:45 WBC 14.6 H RBC 2.77 L Hgb 7.9 L Hct 24.3 L RDW 16.8 H Lymph % (Auto) 6.6 L [place] % (Auto) 8.5 H Eos % (Auto) Lymph # 1.0 L [place] # 1.2 H Seg Neutrophils % 82.9 H Seg Neuts % (Manual) Lymphocytes % (Manual) Seg Neutrophils # 12.1 H Seg Neutrophils # Man Lymphocytes # (Manual) Monocytes # (Manual) D-Dimer Heparin Anti-Xa Level 0.24 L ABG pH ABG pO2 ABG HCO3 ABG O2 Saturation ABG Base Excess ABG Hemoglobin VBG pH Oxyhemoglobin Sodium Potassium Chloride Carbon Dioxide 20 L BUN 88 H Creatinine 1.5 H Glucose 111 H POC Glucose Lactic Acid Calcium 8.2 L AST Alkaline Phosphatase Lactate Dehydrogenase Total Creatine Kinase CK-MB (CK-2) C-Reactive Protein Total Protein Albumin Urine WBC (Auto) Urine Creatinine Urine Total Protein Coronavirus (PCR) 06/11/20 06/11/20 06/11/20 06:03 10:22 11:11 WBC RBC Hgb Hct RDW Lymph % (Auto) [place] % (Auto) Eos % (Auto) Lymph # [place] # Seg Neutrophils % Seg Neuts % (Manual) Lymphocytes % (Manual) Seg Neutrophils # Seg Neutrophils # Man Lymphocytes # (Manual) Monocytes # (Manual) D-Dimer Heparin Anti-Xa Level 0.26 L ABG pH ABG pO2 ABG HCO3 ABG O2 Saturation ABG Base Excess ABG Hemoglobin 9.6 L VBG pH Oxyhemoglobin Sodium Potassium Chloride Carbon Dioxide BUN Creatinine Glucose POC Glucose 114 H Lactic Acid Calcium AST Alkaline Phosphatase Lactate Dehydrogenase Total Creatine Kinase CK-MB (CK-2) C-Reactive Protein Total Protein Albumin Urine WBC (Auto) Urine Creatinine Urine Total Protein Coronavirus (PCR) 09/12/2606/11/20 06/12/20 12:24 17:24 00:21 WBC RBC Hgb Hct RDW Lymph % (Auto) [place] % (Auto) Eos % (Auto) Lymph # [place] # Seg Neutrophils % Seg Neuts % (Manual) Lymphocytes % (Manual) Seg Neutrophils # Seg Neutrophils # Man Lymphocytes # (Manual) Monocytes # (Manual) D-Dimer Heparin Anti-Xa Level ABG pH ABG pO2 ABG HCO3 ABG O2 Saturation ABG Base Excess ABG Hemoglobin VBG pH Oxyhemoglobin Sodium Potassium Chloride Carbon Dioxide BUN Creatinine Glucose POC Glucose 119 H 126 H 117 H Lactic Acid Calcium AST Alkaline Phosphatase Lactate Dehydrogenase Total Creatine Kinase CK-MB (CK-2) C-Reactive Protein Total Protein Albumin Urine WBC (Auto) Urine Creatinine Urine Total Protein Coronavirus (PCR) 06/12/20 06/12/20 06/12/20 02:46 02:46 05:46 WBC 13.2 H RBC 2.83 L Hgb 8.3 L Hct 24.3 L RDW 16.6 H Lymph % (Auto) 6.2 L [place] % (Auto) 9.5 H Eos % (Auto) Lymph # 0.8 L [place] # 1.3 H Seg Neutrophils % 81.9 H Seg Neuts % (Manual) Lymphocytes % (Manual) Seg Neutrophils # 10.9 H Seg Neutrophils # Man Lymphocytes # (Manual) Monocytes # (Manual) D-Dimer Heparin Anti-Xa Level ABG pH ABG pO2 ABG HCO3 ABG O2 Saturation ABG Base Excess ABG Hemoglobin VBG pH Oxyhemoglobin Sodium Potassium 3.5 L Chloride Carbon Dioxide BUN 77 H Creatinine 1.3 H Glucose POC Glucose 132 H Lactic Acid Calcium 8.3 L AST Alkaline Phosphatase Lactate Dehydrogenase Total Creatine Kinase CK-MB (CK-2) C-Reactive Protein Total Protein Albumin Urine WBC (Auto) Urine Creatinine Urine Total Protein Coronavirus (PCR) 06/12/20 06/12/20 06/12/20 09:20 12:16 17:48 WBC RBC Hgb Hct RDW Lymph % (Auto) [place] % (Auto) Eos % (Auto) Lymph # [place] # Seg Neutrophils % Seg Neuts % (Manual) Lymphocytes % (Manual) Seg Neutrophils # Seg Neutrophils # Man Lymphocytes # (Manual) Monocytes # (Manual) D-Dimer Heparin Anti-Xa Level ABG pH ABG pO2 91.1 H ABG HCO3 ABG O2 Saturation ABG Base Excess ABG Hemoglobin VBG pH Oxyhemoglobin 94.8 L Sodium Potassium Chloride Carbon Dioxide BUN Creatinine Glucose POC Glucose 167 H 182 H Lactic Acid Calcium AST Alkaline Phosphatase Lactate Dehydrogenase Total Creatine Kinase CK-MB (CK-2) C-Reactive Protein Total Protein Albumin Urine WBC (Auto) Urine Creatinine Urine Total Protein Coronavirus (PCR) 06/13/20 06/13/20 06/13/20 00:08 05:37 09:09 WBC RBC Hgb Hct RDW Lymph % (Auto) [place] % (Auto) Eos % (Auto) Lymph # [place] # Seg Neutrophils % Seg Neuts % (Manual) Lymphocytes % (Manual) Seg Neutrophils # Seg Neutrophils # Man Lymphocytes # (Manual) Monocytes # (Manual) D-Dimer Heparin Anti-Xa Level 0.86 H ABG pH ABG pO2 ABG HCO3 ABG O2 Saturation ABG Base Excess ABG Hemoglobin VBG pH Oxyhemoglobin Sodium Potassium Chloride Carbon Dioxide BUN Creatinine Glucose POC Glucose 142 H 119 H Lactic Acid Calcium AST Alkaline Phosphatase Lactate Dehydrogenase Total Creatine Kinase CK-MB (CK-2) C-Reactive Protein Total Protein Albumin Urine WBC (Auto) Urine Creatinine Urine Total Protein Coronavirus (PCR) 06/13/20 06/13/20 06/13/20 12:28 17:55 21:17 WBC RBC Hgb Hct RDW Lymph % (Auto) [place] % (Auto) Eos % (Auto) Lymph # [place] # Seg Neutrophils % Seg Neuts % (Manual) Lymphocytes % (Manual) Seg Neutrophils # Seg Neutrophils # Man Lymphocytes # (Manual) Monocytes # (Manual) D-Dimer Heparin Anti-Xa Level ABG pH ABG pO2 ABG HCO3 ABG O2 Saturation ABG Base Excess ABG Hemoglobin VBG pH Oxyhemoglobin Sodium Potassium Chloride Carbon Dioxide BUN 61 H Creatinine Glucose 131 H POC Glucose 165 H 174 H Lactic Acid Calcium AST Alkaline Phosphatase Lactate Dehydrogenase Total Creatine Kinase CK-MB (CK-2) C-Reactive Protein Total Protein Albumin Urine WBC (Auto) Urine Creatinine Urine Total Protein Coronavirus (PCR) 06/13/20 06/13/20 06/14/20 21:17 23:50 05:34 WBC RBC Hgb Hct RDW Lymph % (Auto) [place] % (Auto) Eos % (Auto) Lymph # [place] # Seg Neutrophils % Seg Neuts % (Manual) Lymphocytes % (Manual) Seg Neutrophils # Seg Neutrophils # Man Lymphocytes # (Manual) Monocytes # (Manual) D-Dimer Heparin Anti-Xa Level 0.72 H ABG pH ABG pO2 ABG HCO3 ABG O2 Saturation ABG Base Excess ABG Hemoglobin VBG pH Oxyhemoglobin Sodium 146 H Potassium Chloride 107.6 H Carbon Dioxide BUN 61 H Creatinine 1.3 H Glucose 135 H POC Glucose 146 H Lactic Acid Calcium AST Alkaline Phosphatase Lactate Dehydrogenase Total Creatine Kinase CK-MB (CK-2) C-Reactive Protein Total Protein Albumin Urine WBC (Auto) Urine Creatinine Urine Total Protein Coronavirus (PCR) 06/14/20 06/14/20 06/14/20 06:11 09:28 11:30 WBC RBC Hgb Hct RDW Lymph % (Auto) [place] % (Auto) Eos % (Auto) Lymph # [place] # Seg Neutrophils % Seg Neuts % (Manual) Lymphocytes % (Manual) Seg Neutrophils # Seg Neutrophils # Man Lymphocytes # (Manual) Monocytes # (Manual) D-Dimer Heparin Anti-Xa Level 0.90 H ABG pH ABG pO2 ABG HCO3 ABG O2 Saturation ABG Base Excess ABG Hemoglobin VBG pH Oxyhemoglobin Sodium Potassium Chloride Carbon Dioxide BUN Creatinine Glucose POC Glucose 141 H 186 H Lactic Acid Calcium AST Alkaline Phosphatase Lactate Dehydrogenase Total Creatine Kinase CK-MB (CK-2) C-Reactive Protein Total Protein Albumin Urine WBC (Auto) Urine Creatinine Urine Total Protein Coronavirus (PCR) 06/14/20 06/14/20 06/14/20 16:07 18:16 23:51 WBC RBC Hgb Hct RDW Lymph % (Auto) [place] % (Auto) Eos % (Auto) Lymph # [place] # Seg Neutrophils % Seg Neuts % (Manual) Lymphocytes % (Manual) Seg Neutrophils # Seg Neutrophils # Man Lymphocytes # (Manual) Monocytes # (Manual) D-Dimer Heparin Anti-Xa Level 0.82 H ABG pH ABG pO2 ABG HCO3 ABG O2 Saturation ABG Base Excess ABG Hemoglobin VBG pH Oxyhemoglobin Sodium Potassium Chloride Carbon Dioxide BUN Creatinine Glucose POC Glucose 106 H 154 H Lactic Acid Calcium AST Alkaline Phosphatase Lactate Dehydrogenase Total Creatine Kinase CK-MB (CK-2) C-Reactive Protein Total Protein Albumin Urine WBC (Auto) Urine Creatinine Urine Total Protein Coronavirus (PCR) 06/15/20 06/15/20 06/15/20 04:24 04:24 05:59 WBC RBC 2.75 L Hgb 7.9 L Hct 24.0 L RDW 16.4 H Lymph % (Auto) 12.9 L [place] % (Auto) 8.7 H Eos % (Auto) 4.6 H Lymph # 1.1 L [place] # Seg Neutrophils % 73.2 H Seg Neuts % (Manual) Lymphocytes % (Manual) Seg Neutrophils # Seg Neutrophils # Man Lymphocytes # (Manual) Monocytes # (Manual) D-Dimer Heparin Anti-Xa Level ABG pH ABG pO2 ABG HCO3 ABG O2 Saturation ABG Base Excess ABG Hemoglobin VBG pH Oxyhemoglobin Sodium Potassium 3.4 L Chloride Carbon Dioxide BUN 55 H Creatinine 1.3 H Glucose 142 H POC Glucose 131 H Lactic Acid Calcium AST Alkaline Phosphatase Lactate Dehydrogenase Total Creatine Kinase CK-MB (CK-2) C-Reactive Protein Total Protein Albumin Urine WBC (Auto) Urine Creatinine Urine Total Protein Coronavirus (PCR) 06/15/20 06/15/20 06/16/20 12:33 17:07 00:22 WBC RBC Hgb Hct RDW Lymph % (Auto) [place] % (Auto) Eos % (Auto) Lymph # [place] # Seg Neutrophils % Seg Neuts % (Manual) Lymphocytes % (Manual) Seg Neutrophils # Seg Neutrophils # Man Lymphocytes # (Manual) Monocytes # (Manual) D-Dimer Heparin Anti-Xa Level 0.21 L ABG pH ABG pO2 ABG HCO3 ABG O2 Saturation ABG Base Excess ABG Hemoglobin VBG pH Oxyhemoglobin Sodium Potassium Chloride Carbon Dioxide BUN Creatinine Glucose POC Glucose 180 H 185 H Lactic Acid Calcium AST Alkaline Phosphatase Lactate Dehydrogenase Total Creatine Kinase CK-MB (CK-2) C-Reactive Protein Total Protein Albumin Urine WBC (Auto) Urine Creatinine Urine Total Protein Coronavirus (PCR) 06/16/20 06/16/20 06/16/20 01:45 08:06 09:15 WBC RBC Hgb Hct RDW Lymph % (Auto) [place] % (Auto) Eos % (Auto) Lymph # [place] # Seg Neutrophils % Seg Neuts % (Manual) Lymphocytes % (Manual) Seg Neutrophils # Seg Neutrophils # Man Lymphocytes # (Manual) Monocytes # (Manual) D-Dimer Heparin Anti-Xa Level ABG pH ABG pO2 ABG HCO3 ABG O2 Saturation ABG Base Excess ABG Hemoglobin VBG pH Oxyhemoglobin Sodium Potassium Chloride Carbon Dioxide BUN 49 H Creatinine Glucose 154 H POC Glucose 140 H 171 H Lactic Acid Calcium AST Alkaline Phosphatase Lactate Dehydrogenase Total Creatine Kinase CK-MB (CK-2) C-Reactive Protein Total Protein Albumin Urine WBC (Auto) Urine Creatinine Urine Total Protein Coronavirus (PCR) 06/16/20 06/16/20 06/16/20 10:46 12:33 17:54 WBC RBC Hgb Hct RDW Lymph % (Auto) [place] % (Auto) Eos % (Auto) Lymph # [place] # Seg Neutrophils % Seg Neuts % (Manual) Lymphocytes % (Manual) Seg Neutrophils # Seg Neutrophils # Man Lymphocytes # (Manual) Monocytes # (Manual) D-Dimer Heparin Anti-Xa Level 0.12 L ABG pH ABG pO2 ABG HCO3 ABG O2 Saturation ABG Base Excess ABG Hemoglobin VBG pH Oxyhemoglobin Sodium Potassium Chloride Carbon Dioxide BUN Creatinine Glucose POC Glucose 166 H 151 H Lactic Acid Calcium AST Alkaline Phosphatase Lactate Dehydrogenase Total Creatine Kinase CK-MB (CK-2) C-Reactive Protein Total Protein Albumin Urine WBC (Auto) Urine Creatinine Urine Total Protein Coronavirus (PCR) 06/16/20 06/17/20 06/17/20 18:47 00:00 02:19 WBC RBC Hgb Hct RDW Lymph % (Auto) [place] % (Auto) Eos % (Auto) Lymph # [place] # Seg Neutrophils % Seg Neuts % (Manual) Lymphocytes % (Manual) Seg Neutrophils # Seg Neutrophils # Man Lymphocytes # (Manual) Monocytes # (Manual) D-Dimer Heparin Anti-Xa Level 0.73 H 0.77 H ABG pH ABG pO2 ABG HCO3 ABG O2 Saturation ABG Base Excess ABG Hemoglobin VBG pH Oxyhemoglobin Sodium Potassium Chloride Carbon Dioxide BUN Creatinine Glucose POC Glucose 139 H Lactic Acid Calcium AST Alkaline Phosphatase Lactate Dehydrogenase Total Creatine Kinase CK-MB (CK-2) C-Reactive Protein Total Protein Albumin Urine WBC (Auto) Urine Creatinine Urine Total Protein Coronavirus (PCR) 06/17/20 06/17/20 06/17/20 06:07 11:42 16:43 WBC RBC Hgb Hct RDW Lymph % (Auto) [place] % (Auto) Eos % (Auto) Lymph # [place] # Seg Neutrophils % Seg Neuts % (Manual) Lymphocytes % (Manual) Seg Neutrophils # Seg Neutrophils # Man Lymphocytes # (Manual) Monocytes # (Manual) D-Dimer Heparin Anti-Xa Level 0.73 H ABG pH ABG pO2 ABG HCO3 ABG O2 Saturation ABG Base Excess ABG Hemoglobin VBG pH Oxyhemoglobin Sodium Potassium Chloride Carbon Dioxide BUN Creatinine Glucose POC Glucose 169 H 169 H Lactic Acid Calcium AST Alkaline Phosphatase Lactate Dehydrogenase Total Creatine Kinase CK-MB (CK-2) C-Reactive Protein Total Protein Albumin Urine WBC (Auto) Urine Creatinine Urine Total Protein Coronavirus (PCR) 06/17/20 06/17/20 06/17/20 18:18 23:08 23:16 WBC RBC Hgb Hct RDW Lymph % (Auto) [place] % (Auto) Eos % (Auto) Lymph # [place] # Seg Neutrophils % Seg Neuts % (Manual) Lymphocytes % (Manual) Seg Neutrophils # Seg Neutrophils # Man Lymphocytes # (Manual) Monocytes # (Manual) D-Dimer Heparin Anti-Xa Level 0.71 H ABG pH ABG pO2 ABG HCO3 ABG O2 Saturation ABG Base Excess ABG Hemoglobin VBG pH Oxyhemoglobin Sodium Potassium Chloride Carbon Dioxide BUN Creatinine Glucose POC Glucose 159 H 134 H Lactic Acid Calcium AST Alkaline Phosphatase Lactate Dehydrogenase Total Creatine Kinase CK-MB (CK-2) C-Reactive Protein Total Protein Albumin Urine WBC (Auto) Urine Creatinine Urine Total Protein Coronavirus (PCR) 06/18/20 06/18/20 06/18/20 04:42 05:52 11:50 WBC RBC Hgb Hct RDW Lymph % (Auto) [place] % (Auto) Eos % (Auto) Lymph # [place] # Seg Neutrophils % Seg Neuts % (Manual) Lymphocytes % (Manual) Seg Neutrophils # Seg Neutrophils # Man Lymphocytes # (Manual) Monocytes # (Manual) D-Dimer Heparin Anti-Xa Level ABG pH ABG pO2 ABG HCO3 ABG O2 Saturation ABG Base Excess ABG Hemoglobin VBG pH Oxyhemoglobin Sodium Potassium Chloride Carbon Dioxide BUN 44 H Creatinine Glucose 115 H POC Glucose 171 H 167 H Lactic Acid Calcium AST Alkaline Phosphatase Lactate Dehydrogenase Total Creatine Kinase CK-MB (CK-2) C-Reactive Protein Total Protein Albumin Urine WBC (Auto) Urine Creatinine Urine Total Protein Coronavirus (PCR) 06/18/20 06/19/20 06/19/20 23:46 05:48 07:52 WBC RBC Hgb Hct RDW Lymph % (Auto) [place] % (Auto) Eos % (Auto) Lymph # [place] # Seg Neutrophils % Seg Neuts % (Manual) Lymphocytes % (Manual) Seg Neutrophils # Seg Neutrophils # Man Lymphocytes # (Manual) Monocytes # (Manual) D-Dimer Heparin Anti-Xa Level ABG pH ABG pO2 ABG HCO3 ABG O2 Saturation ABG Base Excess ABG Hemoglobin VBG pH Oxyhemoglobin Sodium Potassium Chloride Carbon Dioxide BUN Creatinine Glucose POC Glucose 130 H 207 H 175 H Lactic Acid Calcium AST Alkaline Phosphatase Lactate Dehydrogenase Total Creatine Kinase CK-MB (CK-2) C-Reactive Protein Total Protein Albumin Urine WBC (Auto) Urine Creatinine Urine Total Protein Coronavirus (PCR) 06/19/20 06/19/20 06/20/20 11:42 22:54 05:17 WBC RBC Hgb Hct RDW Lymph % (Auto) [place] % (Auto) Eos % (Auto) Lymph # [place] # Seg Neutrophils % Seg Neuts % (Manual) Lymphocytes % (Manual) Seg Neutrophils # Seg Neutrophils # Man Lymphocytes # (Manual) Monocytes # (Manual) D-Dimer Heparin Anti-Xa Level ABG pH ABG pO2 ABG HCO3 ABG O2 Saturation ABG Base Excess ABG Hemoglobin VBG pH Oxyhemoglobin Sodium Potassium Chloride Carbon Dioxide BUN Creatinine Glucose POC Glucose 166 H 135 H 218 H Lactic Acid Calcium AST Alkaline Phosphatase Lactate Dehydrogenase Total Creatine Kinase CK-MB (CK-2) C-Reactive Protein Total Protein Albumin Urine WBC (Auto) Urine Creatinine Urine Total Protein Coronavirus (PCR) 06/20/20 12:04 WBC RBC Hgb Hct RDW Lymph % (Auto) [place] % (Auto) Eos % (Auto) Lymph # [place] # Seg Neutrophils % Seg Neuts % (Manual) Lymphocytes % (Manual) Seg Neutrophils # Seg Neutrophils # Man Lymphocytes # (Manual) Monocytes # (Manual) D-Dimer Heparin Anti-Xa Level ABG pH ABG pO2 ABG HCO3 ABG O2 Saturation ABG Base Excess ABG Hemoglobin VBG pH Oxyhemoglobin Sodium Potassium Chloride Carbon Dioxide BUN Creatinine Glucose POC Glucose 194 H Lactic Acid Calcium AST Alkaline Phosphatase Lactate Dehydrogenase Total Creatine Kinase CK-MB (CK-2) C-Reactive Protein Total Protein Albumin Urine WBC (Auto) Urine Creatinine Urine Total Protein Coronavirus (PCR) Chest x-ray: pending Allied health notes reviewed: RT
--- NOTE | 2020-06-20 14:07 | Progress Note ---
Assessment and Plan Assessment and plan: --COVID-19 positive 05/28/2020 --Superficial left cephalic vein DVT/elevated D-dimers[COVID 19] Patient is on heparin drip from 05/29/20 D-dimers improved [id number] DC heparin drip, start Eliquis 5 mg twice a day for 1 more week[per ID] -- Acute hypoxemic respiratory failure From COVID-19 viral infection extubated on , on high flow o2 -- s/p PEA Cardiac arrest Cardiology team on board Conservative management as per cardiology -- Acute metabolic encephalopathy, POA likely from sepsis and s/p cardiac arrest with possible anoxic injury -- Acute renal failure: likely ATN Cr slowly improving Avoid ACEI and other nephrotoxic medications Nephrology following -- Coronavirus infection with b/l PNA Completed remdesivir on 06/02 Completed dexamethasone - Last dose 06/07 ID recs appreciated. --Klebsiella pneumonia: Completed antibiotics --CHF (congestive heart failure) Cardiology following. Ef 45% -- Coffee ground emesis -Stress ulcers Possible stress ulcers, On PPI H/H remains stable GI evaluation if Hb drops again -- Hypertension; moderate control Continue amlodipine, coreg, clonidine and hydralazine --Mild LFT elevation: likely from COVID-19. -- DVT prophylaxis Eliquis, SCD to bilateral lower extremities while in bed -- Advance care planning Patient is full code. poor prognosis Patient is critically ill with multiple medical problems Poor prognosis Plan of care reviewed with the patient and his nurse 06/13: extubated yesterday, now on Bipap 06/14: patient on Bipap, remains on TF, restraint. cont to follow clinically 06/15: patient on high flow O2,remains on TF, restraint. cont to follow clinically. transfer to IMCU 06/16: Patient remains on high flow O2, intermittently on BiPAP. Tolerating tube feeding. cont to monitor at IMCU 06/17; patient on BiPAP. Remains confused and on tube feeding. Continue to monitor at IMCU. Wean off O2 as tolerated. 06/18; patient feels slightly better, remains on BiPAP more alert, stable to be transferred out of IMCU to telemetry Try to wean oxygen as tolerated History Interval history: I have seen and examined the patient at the bedside today Patient's chart and medications reviewed Isolation precautions, PPE protocols followed strictly Patient is noncommunicative sleeping easily awakens Morbidly obese on on high flow oxygen, Vital signs noted Hospitalist Physical - Constitutional Vitals: Temp Pulse Resp BP Pulse Ox 99.3 F 75 22 128/52 98 06/20/20 11:48 06/20/20 11:48 06/20/20 11:48 06/20/20 11:48 06/20/20 11:48 General appearance: Present: mild distress, well-nourished, obese (Morbidly obese), other (On high flow oxygen) - EENT Eyes: Present: PERRL, EOM intact - Neck Neck: Present: supple, normal ROM - Respiratory Respiratory effort: normal Respiratory: bilateral: diminished, negative: rales, rhonchi, wheezing - Cardiovascular Rhythm: regular Heart Sounds: Present: S1 & S2 - Extremities Extremities: no ischemia, No edema - Abdominal General gastrointestinal: soft, non-tender, non-distended, normal bowel sounds - Integumentary Integumentary: Present: clear, warm - Psychiatric Psychiatric: other (Noncommunicative) - Neurologic Neurologic: other (Uncommunicative) Results - Labs CBC & Chem 7: 06/15/20 04:24 06/18/20 04:42 Labs: Laboratory Last Values WBC 8.8 K/mm3 (4.5-11.0) 06/15/20 04:24 RBC 2.75 M/mm3 (3.65-5.03) L 06/15/20 04:24 Hgb 7.9 gm/dl (10.1-14.3) L 06/15/20 04:24 Hct 24.0 % (30.3-42.9) L 06/15/20 04:24 MCV 87 fl (79-97) 06/15/20 04:24 MCH 29 pg (28-32) 06/15/20 04:24 MCHC 33 % (30-34) 06/15/20 04:24 RDW 16.4 % (13.2-15.2) H 06/15/20 04:24 Plt Count 203 K/mm3 (140-440) 06/15/20 04:24 Lymph % (Auto) 12.9 % (13.4-35.0) L 06/15/20 04:24 [place] % (Auto) 8.7 % (0.0-7.3) H 06/15/20 04:24 Eos % (Auto) 4.6 % (0.0-4.3) H 06/15/20 04:24 Baso % (Auto) 0.6 % (0.0-1.8) 06/15/20 04:24 Lymph # 1.1 K/mm3 (1.2-5.4) L 06/15/20 04:24 [place] # 0.8 K/mm3 (0.0-0.8) 06/15/20 04:24 Eos # 0.4 K/mm3 (0.0-0.4) 06/15/20 04:24 Baso # 0.1 K/mm3 (0.0-0.1) 06/15/20 04:24 Add Manual Diff Complete 06/09/20 05:16 Total Counted 100 06/09/20 05:16 Seg Neutrophils % 73.2 % (40.0-70.0) H 06/15/20 04:24 Seg Neuts % (Manual) 85.0 % (40.0-70.0) H 06/09/20 05:16 Band Neutrophils % 0 % 06/09/20 05:16 Lymphocytes % (Manual) 7.0 % (13.4-35.0) L 06/09/20 05:16 Reactive Lymphs % (Man) 0 % 06/09/20 05:16 Monocytes % (Manual) 7.0 % (0.0-7.3) 06/09/20 05:16 Eosinophils % (Manual) 1.0 % (0.0-4.3) 06/09/20 05:16 Basophils % (Manual) 0 % (0.0-1.8) 06/09/20 05:16 Metamyelocytes % 0 % 06/09/20 05:16 Myelocytes % 0 % 06/09/20 05:16 Promyelocytes % 0 % 06/09/20 05:16 Blast Cells % 0 % 06/09/20 05:16 Nucleated RBC % Not Reportable 06/09/20 05:16 Seg Neutrophils # 6.4 K/mm3 (1.8-7.7) 06/15/20 04:24 Seg Neutrophils # Man 16.2 K/mm3 (1.8-7.7) H 06/09/20 05:16 Band Neutrophils # 0.0 K/mm3 06/09/20 05:16 Lymphocytes # (Manual) 1.3 K/mm3 (1.2-5.4) 06/09/20 05:16 Abs React Lymphs (Man) 0.0 K/mm3 06/09/20 05:16 Monocytes # (Manual) 1.3 K/mm3 (0.0-0.8) H 06/09/20 05:16 Eosinophils # (Manual) 0.2 K/mm3 (0.0-0.4) 06/09/20 05:16 Basophils # (Manual) 0.0 K/mm3 (0.0-0.1) 06/09/20 05:16 Metamyelocytes # 0.0 K/mm3 06/09/20 05:16 Myelocytes # 0.0 K/mm3 06/09/20 05:16 Promyelocytes # 0.0 K/mm3 06/09/20 05:16 Blast Cells # 0.0 K/mm3 06/09/20 05:16 WBC Morphology Not Reportable 06/09/20 05:16 Hypersegmented Neuts Not Reportable 06/09/20 05:16 Hyposegmented Neuts Not Reportable 06/09/20 05:16 Hypogranular Neuts Not Reportable 06/09/20 05:16 Smudge Cells Not Reportable 06/09/20 05:16 Toxic Granulation Not Reportable 06/09/20 05:16 Toxic Vacuolation Not Reportable 06/09/20 05:16 Dohle Bodies Not Reportable 06/09/20 05:16 Pelger-Huet Anomaly Not Reportable 06/09/20 05:16 Sanjuanita Rods Not Reportable 06/09/20 05:16 Platelet Estimate Consistent w auto 06/09/20 05:16 Clumped Platelets Not Reportable 06/09/20 05:16 Plt Clumps, EDTA Not Reportable 06/09/20 05:16 Large Platelets Not Reportable 06/09/20 05:16 Giant Platelets Not Reportable 06/09/20 05:16 Platelet Satelliting Not Reportable 06/09/20 05:16 Plt Morphology Comment Not Reportable 06/09/20 05:16 RBC Morphology Not Reportable 06/09/20 05:16 Dimorphic RBCs Not Reportable 06/09/20 05:16 Polychromasia Rare 06/09/20 05:16 Hypochromasia Few 06/09/20 05:16 Poikilocytosis Not Reportable 06/09/20 05:16 Anisocytosis Few 06/09/20 05:16 Microcytosis Not Reportable 06/09/20 05:16 Macrocytosis Not Reportable 06/09/20 05:16 Spherocytes Not Reportable 06/09/20 05:16 Pappenheimer Bodies Not Reportable 06/09/20 05:16 Sickle Cells Not Reportable 06/09/20 05:16 Target Cells Not Reportable 06/09/20 05:16 Tear Drop Cells Not Reportable 06/09/20 05:16 Ovalocytes Not Reportable 06/09/20 05:16 Helmet Cells Not Reportable 06/09/20 05:16 [place] Bodies Not Reportable 06/09/20 05:16 [place] Rings Not Reportable 06/09/20 05:16 [place] Cells Not Reportable 06/09/20 05:16 Bite Cells Not Reportable 06/09/20 05:16 Crenated Cell Not Reportable 06/09/20 05:16 Elliptocytes Not Reportable 06/09/20 05:16 Acanthocytes (Spur) Not Reportable 06/09/20 05:16 Rouleaux Not Reportable 06/09/20 05:16 Hemoglobin C Crystals Not Reportable 06/09/20 05:16 Schistocytes Not Reportable 06/09/20 05:16 Malaria parasites Not Reportable 06/09/20 05:16 Kev Bodies Not Reportable 06/09/20 05:16 Hem Pathologist Commnt No 06/09/20 05:16 PT 14.2 Sec. (12.2-14.9) 05/29/20 15:10 INR 1.08 (0.87-1.13) 05/29/20 15:10 APTT 27.2 Sec. (24.2-36.6) 05/29/20 15:10 D-Dimer 414.52 ng/mlDDU (0-234) H 06/04/20 04:19 Heparin Anti-Xa Level 0.34 U.I./ml (0.3-0.7) 06/19/20 10:46 ABG pH 7.409 pH Units (7.350-7.450) 06/12/20 09:20 POC ABG pCO2 37.4 mmHg (32.0-48.0) 06/11/20 11:11 ABG pCO2 42.0 mm Hg 06/12/20 09:20 POC ABG pO2 101.9 mmHg (83-108) 06/11/20 11:11 ABG pO2 91.1 mm Hg (80.0-90.0) H 06/12/20 09:20 ABG HCO3 25.9 mmol/L (20.0-26.0) 06/12/20 09:20 ABG O2 Saturation 97.0 % (95.0-99.0) 06/12/20 09: ABG O2 Content 19.9 (0.0-44) 06/12/20 09: ABG Base Excess 1.1 mmol/L (-2.0-3.0) 06/12/20 09:20 ABG Hemoglobin 14.9 gm/dl (12.0-16.0) 06/12/20 09:20 ABG Carboxyhemoglobin 1.5 % (0.0-5.0) 06/12/20 09:20 ABG Methemoglobin 0.7 % (0.0-1.5) 06/12/20 09:20 VBG pH 7.152 (7.320-7.420) L* 05/28/20 13:47 Oxyhemoglobin 94.8 % (95.0-99.0) L 06/12/20 09:20 FiO2 40 % 06/12/20 09:20 Sodium 142 mmol/L (137-145) 06/18/20 04:42 Potassium 3.9 mmol/L (3.6-5.0) 06/18/20 04:42 Chloride 104.1 mmol/L (98-107) 06/18/20 04:42 Carbon Dioxide 26 mmol/L (22-30) 06/18/20 04:42 Anion Gap 16 mmol/L 06/18/20 04:42 BUN 44 mg/dL (7-17) H 06/18/20 04:42 Creatinine 1.1 mg/dL (0.6-1.2) 06/18/20 04:42 Estimated GFR 50 ml/min 06/18/20 04:42 BUN/Creatinine Ratio 40 % 06/18/20 04:42 Glucose 115 mg/dL (65-100) H 06/18/20 04:42 POC Glucose 194 (70-105) H 06/20/20 12:04 Lactic Acid 1.90 mmol/L (0.7-2.0) 05/28/20 14:46 Calcium 9.3 mg/dL (8.4-10.2) 06/18/20 04:42 Ferritin 100.7 ng/mL (10.0-200.0) 06/04/20 04:19 Total Bilirubin 0.20 mg/dL (0.1-1.2) 06/09/20 05:16 AST 16 units/L (5-40) 06/09/20 05:16 ALT 14 units/L (7-56) 06/09/20 05:16 Alkaline Phosphatase < 5 units/L (35-129) L 06/09/20 05:16 Lactate Dehydrogenase 271 units/L (91-180) H 06/04/20 04:19 Total Creatine Kinase 301 units/L (30-135) H 05/28/20 13:47 CK-MB (CK-2) 4.3 ng/mL (0.0-4.0) H 05/28/20 13:47 CK-MB (CK-2) Rel Index 1.4 (0-4) 05/28/20 13:47 C-Reactive Protein 2.20 mg/dL (0.00-1.30) H 06/04/20 04:19 Total Protein 4.6 g/dL (6.3-8.2) L 06/09/20 05:16 Albumin < 0.2 g/dL (3.9-5) L 06/09/20 05:16 Albumin/Globulin Ratio 1.0 % 06/09/20 05:16 Procalcitonin 0.46 ng/mL (<0.15) 06/10/20 05:49 Urine Color Yellow (Yellow) 06/06/20 04:00 Urine Turbidity Cloudy (Clear) 06/06/20 04:00 Urine pH 5.0 (5.0-7.0) 06/06/20 04:00 Ur Specific [place] 1.012 (1.003-1.030) 06/06/20 04:00 Urine Protein 100 mg/dl mg/dL (Negative) 06/06/20 04:00 Urine Glucose (UA) 50 mg/dL (Negative) 06/06/20 04:00 Urine Ketones Neg mg/dL (Negative) 06/06/20 04:00 Urine Blood Sm (Negative) 06/06/20 04:00 Urine Nitrite Neg (Negative) 06/06/20 04:00 Urine Bilirubin Neg (Negative) 06/06/20 04:00 Urine Urobilinogen < 2.0 mg/dL (<2.0) 06/06/20 04:00 Ur Leukocyte Esterase Neg (Negative) 06/06/20 04:00 Urine WBC (Auto) 15.0 /HPF (0.0-6.0) H 06/06/20 04:00 Urine RBC (Auto) 23.0 /HPF (0.0-6.0) 06/06/20 04:00 U Epithel Cells (Auto) 8.0 /HPF (0-13.0) 06/06/20 04:00 Urine Bacteria (Auto) 2+ /HPF (Negative) 06/06/20 04:00 Amorphous Crystals 1+ 06/06/20 04:00 Hyaline Casts 16 /LPF 06/06/20 04:00 Urine Mucus 2+ /HPF 06/06/20 04:00 Urine Yeast (Budding) 2+ /HPF 06/03/20 Unknown Urine Creatinine 82.2 mg/dL (0.1-20.0) H 06/06/20 04:00 Urine Sodium 20 mmol/L 06/06/20 04:00 Urine Total Protein 196 mg/dL (5-11.8) H 06/06/20 04:00 Coronavirus (PCR) Positive (Negative) A 05/28/20 Unknown - Diagnostic Impressions Diagnostic Impressions: Echocardiogram Limited Views 05/29/20 13:52 Transthoracic Echocardiogram Indication: Pulm Embolus BP: 169/76 HR: 85 Conclusions *Limited study for RV size post cardiopulmonar arrest. *RV is only slightly dilated, no significant difference from prior echo 05/13/2020. *Global left ventricular systolic function is at the lower limits of normal. *The estimated ejection fraction is 45-50%. *Mild to moderate concentric left ventricular hypertrophy is observed. *The left and right atria are both mild to moderately dilated. Findings Left Ventricle: The left ventricular chamber size is mildly dilated. Mild to moderate concentric left ventricular hypertrophy is observed. Global left ventricular systolic function is at the lower limits of normal. The estimated ejection fraction is 45-50%. Left Atrium: The left atrium is mild to moderately dilated. Right Ventricle: The right ventricle is slightly dilated. Right Atrium: The right atrium is mild to moderately dilated. Aortic Valve: The aortic valve leaflets are moderately thickened. Mitral Valve: There is mitral annular calcification. The mitral valve leaflets are moderately thickened. Tricuspid Valve: The tricuspid valve leaflets are mildly thickened. Pericardium: A trivial pericardial effusion is visualized. NDUM: 05/29/20 1808 Amended Report Transthoracic Echocardiogram Indication: Pulm Embolus BP: 169/76 HR: 85 Conclusions *Limited study for RV size post cardiopulmonary arrest. *RV is only slightly dilated, no significant difference from prior echo 05/13/2020. *Global left ventricular systolic function is at the lower limits of normal. *The estimated ejection fraction is 45-50%. *Mild to moderate concentric left ventricular hypertrophy is observed. *The left and right atria are both mild to moderately dilated. Findings Left Ventricle: The left ventricular chamber size is mildly dilated. Mild to moderate concentric left ventricular hypertrophy is observed. Global left ventricular systolic function is at the lower limits of normal. The estimated ejection fraction is 45-50%. Left Atrium: The left atrium is mild to moderately dilated. Right Ventricle: The right ventricle is slightly dilated. Right Atrium: The right atrium is mild to moderately dilated. Aortic Valve: The aortic valve leaflets are moderately thickened. Mitral Valve: There is mitral annular calcification. The mitral valve leaflets are moderately thickened. Tricuspid Valve: The tricuspid valve leaflets are mildly thickened. Pericardium: A trivial pericardial effusion is visualized. Helm/IV: Voiding Method Incontinent IV Catheter Type [Right Hand] Peripheral IV IV Catheter Type [Right Wrist] Not found on patient IV Catheter Type [Left Hand] INT / Saline Lock IV Catheter Type [Left INT / Saline Lock Antecubital] IV Catheter Type [Right Peripheral IV Forearm] IV Catheter Type [Left Leg] Intra-osseous Active Medications - Current Medications Current Medications: Generic Name Dose Route Start Last Admin Trade Name Freq PRN Reason Stop Dose Admin Acetaminophen 650 mg 06/09/20 10:57 06/09/20 20:28 Tylenol FEEDTUBE 650 mg Q6H PRN Administration Fever >101 Amlodipine Besylate 10 mg 06/02/20 11:00 06/20/20 09:44 Amlodipine PO 10 mg DAILY NELSON Administration Lipase/Protease/Amylase 1 each 05/29/20 13:39 Pancremu [place] 10,500 Unit FEEDTUBE PRN PRN For Clogged Feeding Tube Apixaban 5 mg 06/19/20 22:00 06/20/20 09:44 Eliquis PO 06/26/20 10:01 5 mg Q12HR NELSON Administration Protocol Carvedilol 12.5 mg 06/03/20 10:00 06/20/20 09:44 Coreg PO 12.5 mg BID NELSON Administration Clonidine HCl 0.2 mg 06/04/20 06:00 06/20/20 05:10 Catapres PO 0.2 mg Q8HR NELSON Administration Glycopyrrolate 2 mg 06/09/20 14:00 06/20/20 08:00 Glycopyrrolate PO 2 mg TID NELSON Administration Hydralazine HCl 50 mg 06/03/20 09:00 06/20/20 05:10 Apresoline PO 50 mg Q8HR NELSON Administration Hydrophilic Ointment 1 applic 05/28/20 13:49 Vaseline Lip Therapy TP Q2HR PRN Dry Lips Insulin Glargine 10 units 06/08/20 22:00 06/19/20 22:47 Lantus SUB-Q 10 units QHS NELSON Administration Insulin Human Lispro 0 unit 05/29/20 18:00 06/20/20 12:22 Humalog SUB-Q 3 unit Q6H NELSON Administration Protocol Labetalol HCl 20 mg 06/03/20 09:00 06/08/20 23:51 Labetalol IV 20 mg Q4H PRN Administration HYPERTENSION Lansoprazole 30 mg 06/05/20 22:00 06/20/20 09:45 Prevacid Solutab FEEDTUBE 30 mg BID NELSON Administration Levetiracetam 500 mg 06/16/20 11:00 06/20/20 09:44 Keppra PO 500 mg BID NELSON Administration Metoclopramide HCl 10 mg 06/10/20 20:00 06/20/20 08:00 Reglan IV 10 mg Q6H NELSON Administration Multi-Ingred Cream/Lotion/Oil/Oint 1 applic 05/28/20 13:49 Artificial Tears Ophth Oint OU Q4HR PRN Dry Eye(s) Ondansetron HCl 4 mg 06/02/20 09:00 06/09/20 16:48 Zofran IV 4 mg Q8H PRN Administration Nausea And Vomiting Scopolamine 1 each 06/05/20 14:00 06/20/20 09:46 Transderm-Scop TD 1 each Q3D NELSON Administration Senna 17.6 mg 06/03/20 10:00 06/20/20 09:45 Senokot FEEDTUBE 17.6 mg BID NELSON Administration Simple Syrup 15 ml 05/29/20 13:39 Simple Syrup FEEDTUBE PRN PRN Hypoglycemia Simple Syrup 30 ml 05/29/20 13:39 Simple Syrup FEEDTUBE PRN PRN Hypoglycemia Sodium Bicarbonate 325 mg 05/29/20 13:39 Sodium Bicarbonate FEEDTUBE PRN PRN For Clogged Feeding Tube Sodium Bicarbonate 650 mg 06/06/20 10:00 06/20/20 09:45 Sodium Bicarbonate PO 650 mg BID NELSON Administration Sodium Chloride 10 ml 05/28/20 22:00 06/20/20 09:46 Sodium Chloride Flush Syringe 10 Ml IV 10 ml BID NELSON Administration Sodium Chloride 10 ml 05/28/20 19:08 06/16/20 17:50 Sodium Chloride Flush Syringe 10 Ml IV 10 ml PRN PRN Administration LINE FLUSH Nutrition/Malnutrition Assess - Dietary Evaluation Nutrition/Malnutrition Findings: Nutrition Notes Start: 05/29/20 11:45 Freq: Status: Active Protocol: Document 06/18/20 10:19 LP (Rec: 06/18/20 10:27 LP [id number]) Nutrition Notes Initial or Follow up Reassessment Current Diagnosis Acute Kidney Injury,Diabetes, Heart Failure,Respiratory Failure Other Pertinent Diagnosis COVID-19 (+) Current Diet Nepro at 40ml/hr Labs/Tests Reviewed Pertinent Medications Reviewed Height 5 ft 6 in Weight 123 kg [place] Body Weight (kg) 59.09 BMI 43.7 Subjective/Other Information Pt tolerating TF at goal rate. [employer] recs NPO Percent of energy/protein needs met: 100%/86% Burn Absent Trauma Absent GI Symptoms Other Current % PO Negligible Minimum of two criteria No physical signs of malnutrition #1 Nutrition Diagnosis Inadequate oral intake Diagnosis Progress(for reassessment Continues documentation) Is patient on ventilator? No Is Patient Ambulatory and/or Out of Bed No REE-([facility]-confined to bed) 2172.576 Kcal/Kg value to use for calculation 13 Approximate Energy Requirements Using 1599 kcal/Kg Calculation Used for Recommendations Kcal/kg Additional Notes Protein needs are 91-109g (1-1 .2g/kg 91kg adjusted wt) Fluid needs 1ml/kcal Nutrition Intervention Change Diet Order: TF Nutrition Support: Continue Nepro at 40ml/hr 200ml q4h per MD Kcal 1,728 Protein (gm) 78 Fluid (mL) 698 Goal #1 TF tolerance Goal #2 TF to meet at least 75% energy and pro needs Anticipated Discharge Needs: Unable to determine at this becky Follow-Up By: 06/23/20 Additional Comments Follow for stable TF
--- NOTE | 2020-06-20 14:41 | XRay Report ---
CHEST 1 VIEW 2:07 PM INDICATION / CLINICAL INFORMATION: Pneumonia. COMPARISON: 06/13/20. FINDINGS: SUPPORT DEVICES: The position of the feeding tube has not changed. HEART / MEDIASTINUM: Unchanged. LUNGS / PLEURA: There is patchy parenchymal disease in both perihilar regions, unchanged to mildly in creased. Disease in both lower lung zones appears improved. No significant pleural effusion. No pneum othorax. ADDITIONAL FINDINGS: No significant additional findings. IMPRESSION: Parenchymal disease in both perihilar regions is unchanged to mildly increased. Signer Name: Zane Suero MD Signed: 06/20/2020 2:37 PM Workstation Name: [id number]
[2020-06-20 16:52] LABS: ABG Base Excess 3.4 mmol/L (-2.0-3.0); ABG HCO3 28.7 mmol/L (20.0-26.0); ABG Methemoglobin 0.6 % (0.0-1.5); ABG Oxygen Saturation 93.5 % (95.0-99.0); ABG PCO2 48.2 mm Hg; ABG PH 7.393 pH Units (7.350-7.450); ABG PO2 59.6 mm Hg (80.0-90.0)
[2020-06-20] MEDS: INSULIN GLARGINE 100 UNITS/ML SUB-Q SCH (21:34)
[2020-06-21] MEDS: INSULIN LISPRO 100 UNIT/ML VIAL 3 mL SUB-Q SCH ×4 (02:43→17:24)
[2020-06-21] MEDS: hydrALAZINE 25 MG TAB PO SCH ×3 (05:41→21:29)
[2020-06-21] MEDS: cloNIDine 0.2 MG TAB PO SCH ×3 (05:41→21:29)
[2020-06-21] MEDS: METOCLOPRAMIDE 10 MG/2 ML INJ IV SCH ×5 (06:24→21:28)
[2020-06-21] MEDS: GLYCOPYRROLATE 2 MG TAB PO SCH ×3 (08:00→21:29)
[2020-06-21] MEDS: levETIRAcetam 500 MG/5 ML ORAL LIQD PO SCH ×2 (10:04→21:29)
[2020-06-21] MEDS: carvediloL 12.5 MG TAB PO SCH ×2 (10:04→21:29)
[2020-06-21] MEDS: LANSOPRAZOLE 30 MG SOLUTAB FEEDTUBE SCH ×2 (10:04→21:29)
[2020-06-21] MEDS: amLODIPine 10 MG TAB PO SCH (10:04)
[2020-06-21] MEDS: SODIUM BICARBONATE 650 MG TAB PO SCH ×2 (10:04→21:31)
[2020-06-21] MEDS: APIXABAN 5 MG TAB PO SCH ×2 (10:04→21:28)
[2020-06-21] MEDS: SENNOSIDES ORAL LIQD 8.8 MG/5 ML ORAL LIQD FEEDTUBE SCH ×2 (10:05→21:30)
[2020-06-21] MEDS ORDERED: FUROSEMIDE 40 MG/4 ML INJ IV ONE (12:44)
--- NOTE | 2020-06-21 12:44 | Progress Note ---
Assessment and Plan - Patient Problems (1) Acute kidney injury (AVANI) with acute tubular necrosis (ATN) Current Visit: Yes Status: Acute Plan to address problem: renal function remained stable with continued improvement in renal parameters. No new labs this am. Will continue to monitor. (2) Acute hypoxemic respiratory failure Current Visit: Yes Status: Acute Plan to address problem: management per pulmonary team. Extubated, management per pulmonary team. (3) Volume overload Current Visit: Yes Status: Acute Plan to address problem: Chest xray reviewed, will write for dose of lasix 20 mg IV today. (4) Pneumonia due to COVID-19 virus Current Visit: Yes Status: Acute Plan to address problem: management per ID recommendations. Completed course of remdesivir and steroids. (5) Hyperkalemia Current Visit: Yes Status: Acute Plan to address problem: in the setting of acute kidney injury. Most recent labs showed stable potassium levels. We will be monitoring very closely. Subjective Date of service: 06/21/20 Principal diagnosis: Ac hypoxemic resp failure; COVID-19; pneumonia; CHF; Pulm HTN; OHS; DM II Interval history: No acute issues from renal standpoint. Labs reviewed. Objective - Exam Narrative Exam: patient was not directly examined secondary to preservation of PPE - Vital Signs Vital signs: Vital Signs - 12hr 06/21/20 06/21/20 06/21/20 01:00 04:33 05:41 Temperature 99.0 F Pulse Rate 86 83 84 Respiratory 29 H 20 Rate Blood Pressure 169/69 172/65 O2 Sat by Pulse 96 97 Oximetry 06/21/20 09:33 Temperature Pulse Rate Respiratory Rate Blood Pressure O2 Sat by Pulse 98 Oximetry - Lab 06/15/20 04:24 06/18/20 04:42 Most recent lab results ABG pH 7.393 pH Units (7.350-7.450) 06/20/20 16:35 ABG pCO2 48.2 mm Hg 06/20/20 16:35 ABG pO2 59.6 mm Hg (80.0-90.0) L 06/20/20 16:35 ABG HCO3 28.7 mmol/L (20.0-26.0) H 06/20/20 16:35 ABG O2 Saturation 93.5 % (95.0-99.0) L 06/20/20 16:35 Calcium 9.3 mg/dL (8.4-10.2) 06/18/20 04:42 Urine Creatinine 82.2 mg/dL (0.1-20.0) H 06/06/20 04:00 Urine Sodium 20 mmol/L 06/06/20 04:00 Urine Total Protein 196 mg/dL (5-11.8) H 06/06/20 04:00 Medications & Allergies - Medications Allergies/Adverse Reactions: Allergies No Known Allergies Allergy (Verified 01/21/20 12:28) Home Medications: Home Medications Medication Instructions Recorded Confirmed Last Taken Type AtorvaSTATin [Lipitor] 20 mg PO QHS 05/12/20 05/29/20 Unknown History lisinopriL [Zestril TAB] 40 mg PO QDAY 05/12/20 05/29/20 Unknown History metFORMIN [Glucophage] 850 mg PO BID 05/12/20 05/29/20 Unknown History Acetaminophen [Acetaminophen TAB] 650 mg PO Q4H PRN tablet 05/13/20 05/29/20 Unknown Rx Dicyclomine [Bentyl] 20 mg PO BID #20 tablet 05/13/20 05/29/20 Unknown Rx Famotidine [Pepcid] 20 mg PO BID #30 tablet 05/13/20 05/29/20 Unknown Rx carvediloL [Coreg] 6.25 mg PO BID #60 05/13/20 05/29/20 Unknown Rx Active Medications: Generic Name Dose Route Start Last Admin Trade Name Freq PRN Reason Stop Dose Admin Acetaminophen 650 mg 06/09/20 10:57 06/09/20 20:28 Tylenol FEEDTUBE 650 mg Q6H PRN Administration Fever >101 Amlodipine Besylate 10 mg 06/02/20 11:00 06/21/20 10:04 Amlodipine PO 10 mg DAILY NELSON Administration Lipase/Protease/Amylase 1 each 05/29/20 13:39 Pancremu Lawson 10,500 Unit FEEDTUBE PRN PRN For Clogged Feeding Tube Apixaban 5 mg 06/19/20 22:00 06/21/20 10:04 Eliquis PO 06/26/20 10:01 5 mg Q12HR NELSON Administration Protocol Carvedilol 12.5 mg 06/03/20 10:00 06/21/20 10:04 Coreg PO 12.5 mg BID NELSON Administration Clonidine HCl 0.2 mg 06/04/20 06:00 06/21/20 05:41 Catapres PO 0.2 mg Q8HR NELSON Administration Glycopyrrolate 2 mg 06/09/20 14:00 06/21/20 08:00 Glycopyrrolate PO 2 mg TID NELSON Administration Hydralazine HCl 50 mg 06/03/20 09:00 06/21/20 05:41 Apresoline PO 50 mg Q8HR NELSON Administration Hydrophilic Ointment 1 applic 05/28/20 13:49 Vaseline Lip Therapy TP Q2HR PRN Dry Lips Insulin Glargine 10 units 06/08/20 22:00 06/20/20 21:34 Lantus SUB-Q 10 units QHS NELSON Administration Insulin Human Lispro 0 unit 05/29/20 18:00 06/21/20 07:30 Humalog SUB-Q 3 unit Q6H NELSON Administration Protocol Labetalol HCl 20 mg 06/03/20 09:00 06/08/20 23:51 Labetalol IV 20 mg Q4H PRN Administration HYPERTENSION Lansoprazole 30 mg 06/05/20 22:00 06/21/20 10:04 Prevacid Solutab FEEDTUBE 30 mg BID NELSON Administration Levetiracetam 500 mg 06/16/20 11:00 06/21/20 10:04 Keppra PO 500 mg BID NELSON Administration Metoclopramide HCl 10 mg 06/10/20 20:00 06/21/20 08:00 Reglan IV 10 mg Q6H NELSON Administration Multi-Ingred Cream/Lotion/Oil/Oint 1 applic 05/28/20 13:49 Artificial Tears Ophth Oint OU Q4HR PRN Dry Eye(s) Ondansetron HCl 4 mg 06/02/20 09:00 06/09/20 16:48 Zofran IV 4 mg Q8H PRN Administration Nausea And Vomiting Scopolamine 1 each 06/05/20 14:00 06/20/20 09:46 Transderm-Scop TD 1 each Q3D NELSON Administration Senna 17.6 mg 06/03/20 10:00 06/21/20 10:05 Senokot FEEDTUBE 17.6 mg BID NELSON Administration Simple Syrup 15 ml 05/29/20 13:39 Simple Syrup FEEDTUBE PRN PRN Hypoglycemia Simple Syrup 30 ml 05/29/20 13:39 Simple Syrup FEEDTUBE PRN PRN Hypoglycemia Sodium Bicarbonate 325 mg 05/29/20 13:39 Sodium Bicarbonate FEEDTUBE PRN PRN For Clogged Feeding Tube Sodium Bicarbonate 650 mg 06/06/20 10:00 06/21/20 10:04 Sodium Bicarbonate PO 650 mg BID NELSON Administration Sodium Chloride 10 ml 05/28/20 22:00 06/21/20 10:06 Sodium Chloride Flush Syringe 10 Ml IV 10 ml BID NELSON Administration Sodium Chloride 10 ml 05/28/20 19:08 06/16/20 17:50 Sodium Chloride Flush Syringe 10 Ml IV 10 ml PRN PRN Administration LINE FLUSH
--- NOTE | 2020-06-21 12:56 | Progress Note ---
Assessment and Plan Acute hypoxemic respiratory failure on MVS Coronavirus-19 infection. Bilateral pulmonary infiltrates, bilateral pneumonia plus likely element of Pulmonary edema. Bilateral pulmonary edema. Bilateral pleural effusions. VTE (Upper extremity DVT) History of congestive heart failure. Morbid obesity. History of pulmonary hypertension. History of hypertension. Diabetes. Obesity hypoventilation syndrome. Elevated serum inflammatory markers to include D-dimers and LDH levels. Hyperkalemia at presentation. Metabolic acidosis. Oropharyngeal dysphagia. - continue full anticoagulation with Eliquis - fall precautions - continue BIPAP scheduled qhs with prn daytime use - continue care as below otherwise; - advance diet per [facility] team - continue Robinul and scopolamine for secretions control - continue COVID-19 isolation per protocol - strict I's and O's - continue to wean supplemental oxygen for target O2 sat's > 90% acutely - continue aspiration precautions - continue lung protective strategies - continue bronchodilators with pulmonary hygiene per RT - wean per pulmonary driven protocols otherwise - continue accuchecks with glycemic control per SSI for target BG <180 mg/dL; avoid hypoglycemia - continue to avoid benzodiazepine's, reduce the possibility of delirium - azotemia per nephrology - continue to avoid nephrotoxins and renally dose all medications - completed AB's per ID rec's - continue Reglan for GI motility issues - prn analgesia per pain score - Maintenance of sleep-wake cycle, avoid delirium - continue enteral nutritional support at goal rate as tolerated - G.I. & VTE prophylaxis - PT/OT/ROM exercises - continue mobility protocols for pressure ulcer prophylaxis - Monitor hemodynamics closely - continue other care per attending / other consultants - discharge planning ongoing concurrently .... Re-evaluate in am & prn Subjective Date of service: 06/21/20 Principal diagnosis: Ac hypoxemic resp failure; COVID-19; pneumonia; CHF; Pulm HTN; OHS; DM II Interval history: Patient is seen today for: Ac hypoxemic resp failure; Coronavirus-19 infection; pneumonia; Pulmonary edema; Bilateral pleural effusions; CHF; Morbid obesity; pulmonary hypertension; OHS; DM II Seen and examined at bedside; 24hour events reviewed; nursing and respiratory care staff consulted; no adverse overnight events reported to me; resting peacefully in bed; AMS is persistent (somnolence); transitioned to DOAC (Apixaban); no bleeding reported Objective Vital Signs - 12hr 06/21/20 06/21/20 06/21/20 01:00 04:33 05:41 Temperature 99.0 F Pulse Rate 86 83 84 Respiratory 29 H 20 Rate Blood Pressure 169/69 172/65 O2 Sat by Pulse 96 97 Oximetry 06/21/20 09:33 Temperature Pulse Rate Respiratory Rate Blood Pressure O2 Sat by Pulse 98 Oximetry Constitutional: no acute distress, other (elderly looking obese female on HFNC with mildly increased respiratory effort at rest) Eyes: non-icteric ENT: oropharynx moist, other (extubated) Neck: supple, no lymphadenopathy, no JVD, other (large neck circumference) Effort: mildly labored Ascultation: Bilateral: diminished breath sounds, rhonchi (scant) Percussion: Bilateral: not dull Cardiovascular: regular rate and rhythm, other (S1,S2) Gastrointestinal: normoactive bowel sounds, soft, non-tender, non-distended Integumentary: normal Extremities: no cyanosis, no edema, pink and warm, pulses normal, no ischemia or petechiae Neurologic: non-focal exam (grossly), pupils equal and round, other (lethargic) Psychiatric: other (unable to assess re: AMS) CBC and BMP: 06/15/20 04:24 06/18/20 04:42 ABG, PT/INR, D-dimer: ABG ABG pH 7.393 pH Units (7.350-7.450) 06/20/20 16:35 POC ABG pCO2 37.4 mmHg (32.0-48.0) 06/11/20 11:11 ABG pCO2 48.2 mm Hg 06/20/20 16:35 POC ABG pO2 101.9 mmHg (83-108) 06/11/20 11:11 ABG pO2 59.6 mm Hg (80.0-90.0) L 06/20/20 16:35 ABG O2 Saturation 93.5 % (95.0-99.0) L 06/20/20 16:35 PT/INR, D-dimer PT 14.2 Sec. (12.2-14.9) 05/29/20 15:10 INR 1.08 (0.87-1.13) 05/29/20 15:10 D-Dimer 414.52 ng/mlDDU (0-234) H 08/27/20 04:19 Abnormal lab findings: Abnormal Labs 05/28/20 05/28/20 05/28/20 13:29 13:47 13:47 WBC RBC Hgb Hct RDW 15.3 H Lymph % (Auto) Nye % (Auto) Eos % (Auto) Lymph # Nye # Seg Neutrophils % Seg Neuts % (Manual) Lymphocytes % (Manual) Seg Neutrophils # Seg Neutrophils # Man Lymphocytes # (Manual) Monocytes # (Manual) D-Dimer Heparin Anti-Xa Level ABG pH ABG pO2 ABG HCO3 ABG O2 Saturation ABG Base Excess ABG Hemoglobin VBG pH Oxyhemoglobin Sodium Potassium 6.6 H* Chloride 109.2 H Carbon Dioxide 17 L BUN 29 H Creatinine 1.3 H Glucose 265 H POC Glucose 248 H Lactic Acid Calcium 8.1 L AST 63 H Alkaline Phosphatase Lactate Dehydrogenase Total Creatine Kinase 301 H CK-MB (CK-2) 4.3 H C-Reactive Protein Total Protein 5.4 L Albumin 2.6 L Urine WBC (Auto) Urine Creatinine Urine Total Protein Coronavirus (PCR) 05/28/20 05/28/20 05/28/20 13:47 13:47 14:46 WBC RBC Hgb Hct RDW Lymph % (Auto) Nye % (Auto) Eos % (Auto) Lymph # Nye # Seg Neutrophils % Seg Neuts % (Manual) Lymphocytes % (Manual) Seg Neutrophils # Seg Neutrophils # Man Lymphocytes # (Manual) Monocytes # (Manual) D-Dimer Heparin Anti-Xa Level ABG pH ABG pO2 ABG HCO3 ABG O2 Saturation ABG Base Excess ABG Hemoglobin VBG pH 7.152 L* Oxyhemoglobin Sodium Potassium 7.2 H* Chloride Carbon Dioxide BUN Creatinine Glucose POC Glucose Lactic Acid 3.40 H* Calcium AST Alkaline Phosphatase Lactate Dehydrogenase Total Creatine Kinase CK-MB (CK-2) C-Reactive Protein Total Protein Albumin Urine WBC (Auto) Urine Creatinine Urine Total Protein Coronavirus (PCR) 05/28/20 05/28/20 05/28/20 15:33 15:33 15:51 WBC RBC Hgb Hct RDW Lymph % (Auto) Nye % (Auto) Eos % (Auto) Lymph # Nye # Seg Neutrophils % Seg Neuts % (Manual) Lymphocytes % (Manual) Seg Neutrophils # Seg Neutrophils # Man Lymphocytes # (Manual) Monocytes # (Manual) D-Dimer 8780.43 H Heparin Anti-Xa Level ABG pH 7.284 L ABG pO2 273.0 H ABG HCO3 ABG O2 Saturation 99.4 H ABG Base Excess -6.1 L ABG Hemoglobin 17.2 H VBG pH Oxyhemoglobin Sodium Potassium Chloride Carbon Dioxide BUN Creatinine Glucose 152 H POC Glucose Lactic Acid Calcium AST Alkaline Phosphatase Lactate Dehydrogenase 365 H Total Creatine Kinase CK-MB (CK-2) C-Reactive Protein Total Protein Albumin Urine WBC (Auto) Urine Creatinine Urine Total Protein Coronavirus (PCR) 05/28/20 05/28/20 05/28/20 16:30 20:41 23:20 WBC RBC Hgb Hct RDW Lymph % (Auto) Nye % (Auto) Eos % (Auto) Lymph # Nye # Seg Neutrophils % Seg Neuts % (Manual) Lymphocytes % (Manual) Seg Neutrophils # Seg Neutrophils # Man Lymphocytes # (Manual) Monocytes # (Manual) D-Dimer Heparin Anti-Xa Level ABG pH ABG pO2 ABG HCO3 ABG O2 Saturation ABG Base Excess ABG Hemoglobin VBG pH Oxyhemoglobin Sodium Potassium Chloride Carbon Dioxide BUN Creatinine Glucose POC Glucose 225 H 224 H Lactic Acid Calcium AST Alkaline Phosphatase Lactate Dehydrogenase Total Creatine Kinase CK-MB (CK-2) C-Reactive Protein Total Protein Albumin Urine WBC (Auto) 17.0 H Urine Creatinine Urine Total Protein Coronavirus (PCR) 05/28/20 05/29/20 05/29/20 Unknown 04:35 04:43 WBC RBC 3.48 L Hgb 9.8 L Hct 29.4 L RDW 16.0 H Lymph % (Auto) 7.4 L Nye % (Auto) Eos % (Auto) Lymph # 0.7 L Nye # Seg Neutrophils % 89.1 H Seg Neuts % (Manual) Lymphocytes % (Manual) Seg Neutrophils # 8.1 H Seg Neutrophils # Man Lymphocytes # (Manual) Monocytes # (Manual) D-Dimer Heparin Anti-Xa Level ABG pH ABG pO2 ABG HCO3 19.3 L ABG O2 Saturation ABG Base Excess -4.5 L ABG Hemoglobin 9.7 L VBG pH Oxyhemoglobin Sodium Potassium Chloride Carbon Dioxide BUN Creatinine Glucose POC Glucose Lactic Acid Calcium AST Alkaline Phosphatase Lactate Dehydrogenase Total Creatine Kinase CK-MB (CK-2) C-Reactive Protein Total Protein Albumin Urine WBC (Auto) Urine Creatinine Urine Total Protein Coronavirus (PCR) Positive A 05/29/20 05/29/20 05/29/20 04:43 15:10 17:17 WBC RBC Hgb 9.3 L Hct 28.7 L RDW Lymph % (Auto) Nye % (Auto) Eos % (Auto) Lymph # Nye # Seg Neutrophils % Seg Neuts % (Manual) Lymphocytes % (Manual) Seg Neutrophils # Seg Neutrophils # Man Lymphocytes # (Manual) Monocytes # (Manual) D-Dimer Heparin Anti-Xa Level ABG pH ABG pO2 ABG HCO3 ABG O2 Saturation ABG Base Excess ABG Hemoglobin VBG pH Oxyhemoglobin Sodium Potassium Chloride 110.2 H Carbon Dioxide 18 L BUN 32 H Creatinine 1.4 H Glucose 180 H POC Glucose 147 H Lactic Acid Calcium AST Alkaline Phosphatase Lactate Dehydrogenase Total Creatine Kinase CK-MB (CK-2) C-Reactive Protein Total Protein Albumin Urine WBC (Auto) Urine Creatinine Urine Total Protein Coronavirus (PCR) 05/30/20 05/30/20 05/30/20 00:08 00:12 04:15 WBC RBC Hgb Hct RDW Lymph % (Auto) Nye % (Auto) Eos % (Auto) Lymph # Nye # Seg Neutrophils % Seg Neuts % (Manual) Lymphocytes % (Manual) Seg Neutrophils # Seg Neutrophils # Man Lymphocytes # (Manual) Monocytes # (Manual) D-Dimer Heparin Anti-Xa Level 0.71 H ABG pH 7.460 H ABG pO2 106.0 H ABG HCO3 18.9 L ABG O2 Saturation ABG Base Excess -4.4 L ABG Hemoglobin 6.8 L VBG pH Oxyhemoglobin Sodium Potassium Chloride Carbon Dioxide BUN Creatinine Glucose POC Glucose 195 H Lactic Acid Calcium AST Alkaline Phosphatase Lactate Dehydrogenase Total Creatine Kinase CK-MB (CK-2) C-Reactive Protein Total Protein Albumin Urine WBC (Auto) Urine Creatinine Urine Total Protein Coronavirus (PCR) 05/30/20 05/30/20 05/30/20 06:07 08:37 12:33 WBC RBC Hgb Hct RDW Lymph % (Auto) Nye % (Auto) Eos % (Auto) Lymph # Nye # Seg Neutrophils % Seg Neuts % (Manual) Lymphocytes % (Manual) Seg Neutrophils # Seg Neutrophils # Man Lymphocytes # (Manual) Monocytes # (Manual) D-Dimer Heparin Anti-Xa Level 0.85 H ABG pH ABG pO2 ABG HCO3 ABG O2 Saturation ABG Base Excess ABG Hemoglobin VBG pH Oxyhemoglobin Sodium Potassium Chloride Carbon Dioxide BUN Creatinine Glucose POC Glucose 182 H 187 H Lactic Acid Calcium AST Alkaline Phosphatase Lactate Dehydrogenase Total Creatine Kinase CK-MB (CK-2) C-Reactive Protein Total Protein Albumin Urine WBC (Auto) Urine Creatinine Urine Total Protein Coronavirus (PCR) 05/30/20 05/30/20 05/30/20 15:58 17:57 23:36 WBC RBC Hgb Hct RDW Lymph % (Auto) Nye % (Auto) Eos % (Auto) Lymph # Nye # Seg Neutrophils % Seg Neuts % (Manual) Lymphocytes % (Manual) Seg Neutrophils # Seg Neutrophils # Man Lymphocytes # (Manual) Monocytes # (Manual) D-Dimer Heparin Anti-Xa Level 1.03 H ABG pH ABG pO2 ABG HCO3 ABG O2 Saturation ABG Base Excess ABG Hemoglobin VBG pH Oxyhemoglobin Sodium Potassium Chloride Carbon Dioxide BUN Creatinine Glucose POC Glucose 208 H 185 H Lactic Acid Calcium AST Alkaline Phosphatase Lactate Dehydrogenase Total Creatine Kinase CK-MB (CK-2) C-Reactive Protein Total Protein Albumin Urine WBC (Auto) Urine Creatinine Urine Total Protein Coronavirus (PCR) 05/31/20 05/31/20 05/31/20 02:16 03:55 06:16 WBC RBC Hgb 9.2 L Hct 27.5 L RDW Lymph % (Auto) Nye % (Auto) Eos % (Auto) Lymph # Nye # Seg Neutrophils % Seg Neuts % (Manual) Lymphocytes % (Manual) Seg Neutrophils # Seg Neutrophils # Man Lymphocytes # (Manual) Monocytes # (Manual) D-Dimer Heparin Anti-Xa Level ABG pH ABG pO2 94.7 H ABG HCO3 18.6 L ABG O2 Saturation ABG Base Excess -5.5 L ABG Hemoglobin 7.9 L VBG pH Oxyhemoglobin Sodium Potassium Chloride Carbon Dioxide BUN Creatinine Glucose POC Glucose 160 H Lactic Acid Calcium AST Alkaline Phosphatase Lactate Dehydrogenase Total Creatine Kinase CK-MB (CK-2) C-Reactive Protein Total Protein Albumin Urine WBC (Auto) Urine Creatinine Urine Total Protein Coronavirus (PCR) 05/31/20 05/31/20 05/31/20 12:20 13:03 18:13 WBC RBC Hgb Hct RDW Lymph % (Auto) Nye % (Auto) Eos % (Auto) Lymph # Nye # Seg Neutrophils % Seg Neuts % (Manual) Lymphocytes % (Manual) Seg Neutrophils # Seg Neutrophils # Man Lymphocytes # (Manual) Monocytes # (Manual) D-Dimer Heparin Anti-Xa Level ABG pH ABG pO2 ABG HCO3 ABG O2 Saturation ABG Base Excess ABG Hemoglobin VBG pH Oxyhemoglobin Sodium Potassium Chloride Carbon Dioxide 18 L BUN 48 H Creatinine 1.6 H Glucose 115 H POC Glucose 128 H 159 H Lactic Acid Calcium 8.3 L AST Alkaline Phosphatase Lactate Dehydrogenase Total Creatine Kinase CK-MB (CK-2) C-Reactive Protein Total Protein 5.4 L Albumin 2.4 L Urine WBC (Auto) Urine Creatinine Urine Total Protein Coronavirus (PCR) 05/31/20 06/01/20 06/01/20 23:51 04:00 05:48 WBC RBC Hgb Hct RDW Lymph % (Auto) Nye % (Auto) Eos % (Auto) Lymph # Nye # Seg Neutrophils % Seg Neuts % (Manual) Lymphocytes % (Manual) Seg Neutrophils # Seg Neutrophils # Man Lymphocytes # (Manual) Monocytes # (Manual) D-Dimer Heparin Anti-Xa Level ABG pH ABG pO2 109.8 H ABG HCO3 18.8 L ABG O2 Saturation ABG Base Excess -5.9 L ABG Hemoglobin 7.8 L VBG pH Oxyhemoglobin Sodium Potassium Chloride Carbon Dioxide BUN Creatinine Glucose POC Glucose 171 H 133 H Lactic Acid Calcium AST Alkaline Phosphatase Lactate Dehydrogenase Total Creatine Kinase CK-MB (CK-2) C-Reactive Protein Total Protein Albumin Urine WBC (Auto) Urine Creatinine Urine Total Protein Coronavirus (PCR) 06/01/20 06/01/20 06/02/20 12:28 17:29 00:08 WBC RBC Hgb Hct RDW Lymph % (Auto) Nye % (Auto) Eos % (Auto) Lymph # Nye # Seg Neutrophils % Seg Neuts % (Manual) Lymphocytes % (Manual) Seg Neutrophils # Seg Neutrophils # Man Lymphocytes # (Manual) Monocytes # (Manual) D-Dimer Heparin Anti-Xa Level ABG pH ABG pO2 ABG HCO3 ABG O2 Saturation ABG Base Excess ABG Hemoglobin VBG pH Oxyhemoglobin Sodium Potassium Chloride Carbon Dioxide BUN Creatinine Glucose POC Glucose 199 H 209 H 162 H Lactic Acid Calcium AST Alkaline Phosphatase Lactate Dehydrogenase Total Creatine Kinase CK-MB (CK-2) C-Reactive Protein Total Protein Albumin Urine WBC (Auto) Urine Creatinine Urine Total Protein Coronavirus (PCR) 06/02/20 06/02/20 06/02/20 04:20 04:20 04:44 WBC RBC Hgb 10.0 L Hct RDW Lymph % (Auto) Nye % (Auto) Eos % (Auto) Lymph # Nye # Seg Neutrophils % Seg Neuts % (Manual) Lymphocytes % (Manual) Seg Neutrophils # Seg Neutrophils # Man Lymphocytes # (Manual) Monocytes # (Manual) D-Dimer Heparin Anti-Xa Level 0.10 L ABG pH ABG pO2 150.6 H ABG HCO3 ABG O2 Saturation ABG Base Excess -4.1 L ABG Hemoglobin 11.8 L VBG pH Oxyhemoglobin Sodium Potassium Chloride Carbon Dioxide BUN Creatinine Glucose POC Glucose Lactic Acid Calcium AST Alkaline Phosphatase Lactate Dehydrogenase Total Creatine Kinase CK-MB (CK-2) C-Reactive Protein Total Protein Albumin Urine WBC (Auto) Urine Creatinine Urine Total Protein Coronavirus (PCR) 06/02/20 06/02/20 06/02/20 05:53 12:04 13:49 WBC RBC Hgb Hct RDW Lymph % (Auto) Nye % (Auto) Eos % (Auto) Lymph # Nye # Seg Neutrophils % Seg Neuts % (Manual) Lymphocytes % (Manual) Seg Neutrophils # Seg Neutrophils # Man Lymphocytes # (Manual) Monocytes # (Manual) D-Dimer Heparin Anti-Xa Level 0.28 L ABG pH ABG pO2 ABG HCO3 ABG O2 Saturation ABG Base Excess ABG Hemoglobin VBG pH Oxyhemoglobin Sodium Potassium Chloride Carbon Dioxide BUN Creatinine Glucose POC Glucose 149 H 220 H Lactic Acid Calcium AST Alkaline Phosphatase Lactate Dehydrogenase Total Creatine Kinase CK-MB (CK-2) C-Reactive Protein Total Protein Albumin Urine WBC (Auto) Urine Creatinine Urine Total Protein Coronavirus (PCR) 06/02/20 06/02/20 06/03/20 13:49 18:31 00:42 WBC RBC Hgb Hct RDW Lymph % (Auto) Nye % (Auto) Eos % (Auto) Lymph # Nye # Seg Neutrophils % Seg Neuts % (Manual) Lymphocytes % (Manual) Seg Neutrophils # Seg Neutrophils # Man Lymphocytes # (Manual) Monocytes # (Manual) D-Dimer 769.68 H Heparin Anti-Xa Level ABG pH ABG pO2 ABG HCO3 ABG O2 Saturation ABG Base Excess ABG Hemoglobin VBG pH Oxyhemoglobin Sodium Potassium Chloride Carbon Dioxide BUN Creatinine Glucose POC Glucose 225 H 212 H Lactic Acid Calcium AST Alkaline Phosphatase Lactate Dehydrogenase Total Creatine Kinase CK-MB (CK-2) C-Reactive Protein Total Protein Albumin Urine WBC (Auto) Urine Creatinine Urine Total Protein Coronavirus (PCR) 06/03/20 06/03/20 06/03/20 05:16 05:16 05:25 WBC 11.4 H RBC Hgb Hct RDW 16.4 H Lymph % (Auto) Nye % (Auto) Eos % (Auto) Lymph # Nye # Seg Neutrophils % Seg Neuts % (Manual) Lymphocytes % (Manual) Seg Neutrophils # Seg Neutrophils # Man Lymphocytes # (Manual) Monocytes # (Manual) D-Dimer Heparin Anti-Xa Level ABG pH ABG pO2 160.9 H ABG HCO3 19.4 L ABG O2 Saturation ABG Base Excess -4.9 L ABG Hemoglobin 7.0 L VBG pH Oxyhemoglobin Sodium Potassium Chloride Carbon Dioxide 18 L BUN 65 H Creatinine 2.0 H Glucose 175 H POC Glucose Lactic Acid Calcium 8.0 L AST Alkaline Phosphatase Lactate Dehydrogenase Total Creatine Kinase CK-MB (CK-2) C-Reactive Protein Total Protein 5.5 L Albumin 2.2 L Urine WBC (Auto) Urine Creatinine Urine Total Protein Coronavirus (PCR) 06/03/20 06/03/20 06/03/20 06:07 11:58 18:24 WBC RBC Hgb Hct RDW Lymph % (Auto) Nye % (Auto) Eos % (Auto) Lymph # Nye # Seg Neutrophils % Seg Neuts % (Manual) Lymphocytes % (Manual) Seg Neutrophils # Seg Neutrophils # Man Lymphocytes # (Manual) Monocytes # (Manual) D-Dimer Heparin Anti-Xa Level ABG pH ABG pO2 ABG HCO3 ABG O2 Saturation ABG Base Excess ABG Hemoglobin VBG pH Oxyhemoglobin Sodium Potassium Chloride Carbon Dioxide BUN Creatinine Glucose POC Glucose 177 H 163 H 211 H Lactic Acid Calcium AST Alkaline Phosphatase Lactate Dehydrogenase Total Creatine Kinase CK-MB (CK-2) C-Reactive Protein Total Protein Albumin Urine WBC (Auto) Urine Creatinine Urine Total Protein Coronavirus (PCR) 06/03/20 06/03/20 06/04/20 21:50 Unknown 00:26 WBC RBC Hgb Hct RDW Lymph % (Auto) Nye % (Auto) Eos % (Auto) Lymph # Nye # Seg Neutrophils % Seg Neuts % (Manual) Lymphocytes % (Manual) Seg Neutrophils # Seg Neutrophils # Man Lymphocytes # (Manual) Monocytes # (Manual) D-Dimer Heparin Anti-Xa Level ABG pH ABG pO2 ABG HCO3 ABG O2 Saturation ABG Base Excess ABG Hemoglobin VBG pH Oxyhemoglobin Sodium 135 L Potassium Chloride Carbon Dioxide 18 L BUN Creatinine Glucose POC Glucose 241 H Lactic Acid Calcium AST Alkaline Phosphatase Lactate Dehydrogenase Total Creatine Kinase CK-MB (CK-2) C-Reactive Protein Total Protein Albumin Urine WBC (Auto) 11.0 H Urine Creatinine Urine Total Protein Coronavirus (PCR) 06/04/20 06/04/20 06/04/20 03:35 04:19 04:19 WBC RBC 3.15 L Hgb 8.9 L Hct 26.8 L D RDW 15.9 H Lymph % (Auto) 6.0 L Nye % (Auto) Eos % (Auto) Lymph # 0.6 L Nye # Seg Neutrophils % 86.6 H Seg Neuts % (Manual) Lymphocytes % (Manual) Seg Neutrophils # 9.1 H Seg Neutrophils # Man Lymphocytes # (Manual) Monocytes # (Manual) D-Dimer Heparin Anti-Xa Level ABG pH 7.331 L ABG pO2 ABG HCO3 ABG O2 Saturation ABG Base Excess -4.7 L ABG Hemoglobin 11.0 L VBG pH Oxyhemoglobin 93.9 L Sodium 136 L Potassium Chloride Carbon Dioxide 20 L BUN 73 H Creatinine 2.0 H Glucose 192 H POC Glucose Lactic Acid Calcium 8.0 L AST Alkaline Phosphatase Lactate Dehydrogenase 271 H Total Creatine Kinase CK-MB (CK-2) C-Reactive Protein 2.20 H Total Protein 5.0 L Albumin 2.0 L Urine WBC (Auto) Urine Creatinine Urine Total Protein Coronavirus (PCR) 06/04/20 06/04/20 06/04/20 04:19 05:51 11:48 WBC RBC Hgb Hct RDW Lymph % (Auto) Nye % (Auto) Eos % (Auto) Lymph # Nye # Seg Neutrophils % Seg Neuts % (Manual) Lymphocytes % (Manual) Seg Neutrophils # Seg Neutrophils # Man Lymphocytes # (Manual) Monocytes # (Manual) D-Dimer 414.52 H Heparin Anti-Xa Level ABG pH ABG pO2 ABG HCO3 ABG O2 Saturation ABG Base Excess ABG Hemoglobin VBG pH Oxyhemoglobin Sodium Potassium Chloride Carbon Dioxide BUN Creatinine Glucose POC Glucose 179 H 213 H Lactic Acid Calcium AST Alkaline Phosphatase Lactate Dehydrogenase Total Creatine Kinase CK-MB (CK-2) C-Reactive Protein Total Protein Albumin Urine WBC (Auto) Urine Creatinine Urine Total Protein Coronavirus (PCR) 06/04/20 06/05/20 06/05/20 18:25 00:16 05:00 WBC RBC Hgb Hct RDW Lymph % (Auto) Nye % (Auto) Eos % (Auto) Lymph # Nye # Seg Neutrophils % Seg Neuts % (Manual) Lymphocytes % (Manual) Seg Neutrophils # Seg Neutrophils # Man Lymphocytes # (Manual) Monocytes # (Manual) D-Dimer Heparin Anti-Xa Level ABG pH 7.286 L ABG pO2 96.2 H ABG HCO3 ABG O2 Saturation ABG Base Excess -6.3 L ABG Hemoglobin 8.8 L VBG pH Oxyhemoglobin 94.8 L Sodium Potassium Chloride Carbon Dioxide BUN Creatinine Glucose POC Glucose 238 H 183 H Lactic Acid Calcium AST Alkaline Phosphatase Lactate Dehydrogenase Total Creatine Kinase CK-MB (CK-2) C-Reactive Protein Total Protein Albumin Urine WBC (Auto) Urine Creatinine Urine Total Protein Coronavirus (PCR) 06/05/20 06/05/20 06/05/20 05:39 07:25 07:25 WBC RBC 2.97 L Hgb 8.7 L Hct 25.7 L RDW 16.0 H Lymph % (Auto) 8.8 L Nye % (Auto) 13.3 H Eos % (Auto) Lymph # 0.8 L Nye # 1.3 H Seg Neutrophils % 77.3 H Seg Neuts % (Manual) Lymphocytes % (Manual) Seg Neutrophils # Seg Neutrophils # Man Lymphocytes # (Manual) Monocytes # (Manual) D-Dimer Heparin Anti-Xa Level ABG pH ABG pO2 ABG HCO3 ABG O2 Saturation ABG Base Excess ABG Hemoglobin VBG pH Oxyhemoglobin Sodium 133 L Potassium Chloride Carbon Dioxide 17 L BUN 89 H Creatinine 2.8 H Glucose 176 H POC Glucose 149 H Lactic Acid Calcium 7.7 L AST Alkaline Phosphatase Lactate Dehydrogenase Total Creatine Kinase CK-MB (CK-2) C-Reactive Protein Total Protein 4.2 L Albumin 1.9 L Urine WBC (Auto) Urine Creatinine Urine Total Protein Coronavirus (PCR) 06/05/20 06/05/20 06/05/20 07:25 12:05 15:41 WBC RBC Hgb Hct RDW Lymph % (Auto) Nye % (Auto) Eos % (Auto) Lymph # Nye # Seg Neutrophils % Seg Neuts % (Manual) Lymphocytes % (Manual) Seg Neutrophils # Seg Neutrophils # Man Lymphocytes # (Manual) Monocytes # (Manual) D-Dimer Heparin Anti-Xa Level 0.76 H 0.81 H ABG pH ABG pO2 ABG HCO3 ABG O2 Saturation ABG Base Excess ABG Hemoglobin VBG pH Oxyhemoglobin Sodium Potassium Chloride Carbon Dioxide BUN Creatinine Glucose POC Glucose 198 H Lactic Acid Calcium AST Alkaline Phosphatase Lactate Dehydrogenase Total Creatine Kinase CK-MB (CK-2) C-Reactive Protein Total Protein Albumin Urine WBC (Auto) Urine Creatinine Urine Total Protein Coronavirus (PCR) 06/05/20 06/05/20 06/06/20 18:08 23:25 04:00 WBC RBC Hgb Hct RDW Lymph % (Auto) Nye % (Auto) Eos % (Auto) Lymph # Nye # Seg Neutrophils % Seg Neuts % (Manual) Lymphocytes % (Manual) Seg Neutrophils # Seg Neutrophils # Man Lymphocytes # (Manual) Monocytes # (Manual) D-Dimer Heparin Anti-Xa Level ABG pH ABG pO2 ABG HCO3 ABG O2 Saturation ABG Base Excess ABG Hemoglobin VBG pH Oxyhemoglobin Sodium Potassium Chloride Carbon Dioxide BUN Creatinine Glucose POC Glucose 223 H 169 H Lactic Acid Calcium AST Alkaline Phosphatase Lactate Dehydrogenase Total Creatine Kinase CK-MB (CK-2) C-Reactive Protein Total Protein Albumin Urine WBC (Auto) 15.0 H Urine Creatinine Urine Total Protein Coronavirus (PCR) 06/06/20 06/06/20 06/06/20 04:00 05:33 05:38 WBC RBC 2.97 L Hgb 8.7 L Hct 26.8 L RDW 16.8 H Lymph % (Auto) Nye % (Auto) Eos % (Auto) Lymph # Nye # Seg Neutrophils % Seg Neuts % (Manual) Lymphocytes % (Manual) Seg Neutrophils # Seg Neutrophils # Man Lymphocytes # (Manual) Monocytes # (Manual) D-Dimer Heparin Anti-Xa Level ABG pH ABG pO2 ABG HCO3 ABG O2 Saturation ABG Base Excess ABG Hemoglobin VBG pH Oxyhemoglobin Sodium Potassium Chloride Carbon Dioxide BUN Creatinine Glucose POC Glucose 186 H Lactic Acid Calcium AST Alkaline Phosphatase Lactate Dehydrogenase Total Creatine Kinase CK-MB (CK-2) C-Reactive Protein Total Protein Albumin Urine WBC (Auto) Urine Creatinine 82.2 H Urine Total Protein 196 H Coronavirus (PCR) 06/06/20 06/06/20 06/06/20 05:38 12:25 17:03 WBC RBC Hgb Hct RDW Lymph % (Auto) Nye % (Auto) Eos % (Auto) Lymph # Nye # Seg Neutrophils % Seg Neuts % (Manual) Lymphocytes % (Manual) Seg Neutrophils # Seg Neutrophils # Man Lymphocytes # (Manual) Monocytes # (Manual) D-Dimer Heparin Anti-Xa Level ABG pH ABG pO2 ABG HCO3 ABG O2 Saturation ABG Base Excess ABG Hemoglobin VBG pH Oxyhemoglobin Sodium 134 L Potassium 5.2 H Chloride Carbon Dioxide 18 L BUN 97 H Creatinine 2.5 H Glucose 193 H POC Glucose 239 H 252 H Lactic Acid Calcium 7.5 L AST Alkaline Phosphatase Lactate Dehydrogenase Total Creatine Kinase CK-MB (CK-2) C-Reactive Protein Total Protein 4.1 L Albumin 1.9 L Urine WBC (Auto) Urine Creatinine Urine Total Protein Coronavirus (PCR) 06/07/20 06/07/20 06/07/20 00:16 01:49 04:00 WBC RBC 2.91 L Hgb 8.4 L Hct 25.0 L RDW 16.1 H Lymph % (Auto) 5.7 L Nye % (Auto) 10.5 H Eos % (Auto) Lymph # 0.6 L Nye # 1.1 H Seg Neutrophils % 83.6 H Seg Neuts % (Manual) Lymphocytes % (Manual) Seg Neutrophils # 9.1 H Seg Neutrophils # Man Lymphocytes # (Manual) Monocytes # (Manual) D-Dimer Heparin Anti-Xa Level 0.26 L ABG pH ABG pO2 ABG HCO3 ABG O2 Saturation ABG Base Excess ABG Hemoglobin VBG pH Oxyhemoglobin Sodium Potassium Chloride Carbon Dioxide BUN Creatinine Glucose POC Glucose 173 H Lactic Acid Calcium AST Alkaline Phosphatase Lactate Dehydrogenase Total Creatine Kinase CK-MB (CK-2) C-Reactive Protein Total Protein Albumin Urine WBC (Auto) Urine Creatinine Urine Total Protein Coronavirus (PCR) 06/07/20 06/07/20 06/07/20 04:00 04:54 05:51 WBC RBC Hgb Hct RDW Lymph % (Auto) Nye % (Auto) Eos % (Auto) Lymph # Nye # Seg Neutrophils % Seg Neuts % (Manual) Lymphocytes % (Manual) Seg Neutrophils # Seg Neutrophils # Man Lymphocytes # (Manual) Monocytes # (Manual) D-Dimer Heparin Anti-Xa Level ABG pH 7.317 L ABG pO2 71.4 L ABG HCO3 ABG O2 Saturation 94.3 L ABG Base Excess -4.8 L ABG Hemoglobin 7.1 L VBG pH Oxyhemoglobin 92.2 L Sodium 133 L Potassium Chloride Carbon Dioxide 18 L BUN 100 H Creatinine 2.5 H Glucose 158 H POC Glucose 168 H Lactic Acid Calcium 7.6 L AST Alkaline Phosphatase Lactate Dehydrogenase Total Creatine Kinase CK-MB (CK-2) C-Reactive Protein Total Protein 4.7 L Albumin 2.0 L Urine WBC (Auto) Urine Creatinine Urine Total Protein Coronavirus (PCR) 06/07/20 06/07/20 06/07/20 12:03 17:17 20:10 WBC RBC Hgb Hct RDW Lymph % (Auto) Nye % (Auto) Eos % (Auto) Lymph # Nye # Seg Neutrophils % Seg Neuts % (Manual) Lymphocytes % (Manual) Seg Neutrophils # Seg Neutrophils # Man Lymphocytes # (Manual) Monocytes # (Manual) D-Dimer Heparin Anti-Xa Level 0.17 L ABG pH ABG pO2 ABG HCO3 ABG O2 Saturation ABG Base Excess ABG Hemoglobin VBG pH Oxyhemoglobin Sodium Potassium Chloride Carbon Dioxide BUN Creatinine Glucose POC Glucose 276 H 281 H Lactic Acid Calcium AST Alkaline Phosphatase Lactate Dehydrogenase Total Creatine Kinase CK-MB (CK-2) C-Reactive Protein Total Protein Albumin Urine WBC (Auto) Urine Creatinine Urine Total Protein Coronavirus (PCR) 06/08/20 06/08/20 06/08/20 00:02 04:47 04:47 WBC 16.4 H RBC 3.07 L Hgb 8.6 L Hct 26.5 L RDW 16.3 H Lymph % (Auto) Nye % (Auto) Eos % (Auto) Lymph # Nye # Seg Neutrophils % Seg Neuts % (Manual) 90.0 H Lymphocytes % (Manual) 3.0 L Seg Neutrophils # Seg Neutrophils # Man 14.8 H Lymphocytes # (Manual) 0.5 L Monocytes # (Manual) 1.1 H D-Dimer Heparin Anti-Xa Level ABG pH ABG pO2 ABG HCO3 ABG O2 Saturation ABG Base Excess ABG Hemoglobin VBG pH Oxyhemoglobin Sodium 129 L Potassium Chloride 95.6 L Carbon Dioxide 17 L BUN 106 H Creatinine 2.5 H Glucose 213 H POC Glucose 242 H Lactic Acid Calcium 7.6 L AST Alkaline Phosphatase Lactate Dehydrogenase Total Creatine Kinase CK-MB (CK-2) C-Reactive Protein Total Protein 5.0 L Albumin 2.1 L Urine WBC (Auto) Urine Creatinine Urine Total Protein Coronavirus (PCR) 06/08/20 06/08/20 06/08/20 05:40 11:55 17:54 WBC RBC Hgb Hct RDW Lymph % (Auto) Nye % (Auto) Eos % (Auto) Lymph # Nye # Seg Neutrophils % Seg Neuts % (Manual) Lymphocytes % (Manual) Seg Neutrophils # Seg Neutrophils # Man Lymphocytes # (Manual) Monocytes # (Manual) D-Dimer Heparin Anti-Xa Level ABG pH ABG pO2 ABG HCO3 ABG O2 Saturation ABG Base Excess ABG Hemoglobin VBG pH Oxyhemoglobin Sodium Potassium Chloride Carbon Dioxide BUN Creatinine Glucose POC Glucose 221 H 218 H 163 H Lactic Acid Calcium AST Alkaline Phosphatase Lactate Dehydrogenase Total Creatine Kinase CK-MB (CK-2) C-Reactive Protein Total Protein Albumin Urine WBC (Auto) Urine Creatinine Urine Total Protein Coronavirus (PCR) 06/08/20 06/09/20 06/09/20 22:01 00:09 05:16 WBC 19.0 H RBC 3.35 L Hgb 9.2 L Hct 28.5 L RDW 16.3 H Lymph % (Auto) Nye % (Auto) Eos % (Auto) Lymph # Nye # Seg Neutrophils % Seg Neuts % (Manual) 85.0 H Lymphocytes % (Manual) 7.0 L Seg Neutrophils # Seg Neutrophils # Man 16.2 H Lymphocytes # (Manual) Monocytes # (Manual) 1.3 H D-Dimer Heparin Anti-Xa Level ABG pH ABG pO2 ABG HCO3 ABG O2 Saturation ABG Base Excess ABG Hemoglobin VBG pH Oxyhemoglobin Sodium Potassium Chloride Carbon Dioxide BUN Creatinine Glucose POC Glucose 182 H 150 H Lactic Acid Calcium AST Alkaline Phosphatase Lactate Dehydrogenase Total Creatine Kinase CK-MB (CK-2) C-Reactive Protein Total Protein Albumin Urine WBC (Auto) Urine Creatinine Urine Total Protein Coronavirus (PCR) 06/09/20 06/09/20 06/09/20 05:16 05:24 11:29 WBC RBC Hgb Hct RDW Lymph % (Auto) Nye % (Auto) Eos % (Auto) Lymph # Nye # Seg Neutrophils % Seg Neuts % (Manual) Lymphocytes % (Manual) Seg Neutrophils # Seg Neutrophils # Man Lymphocytes # (Manual) Monocytes # (Manual) D-Dimer Heparin Anti-Xa Level ABG pH ABG pO2 ABG HCO3 ABG O2 Saturation ABG Base Excess ABG Hemoglobin VBG pH Oxyhemoglobin Sodium 133 L Potassium Chloride Carbon Dioxide 19 L BUN 109 H Creatinine 2.1 H Glucose 133 H POC Glucose 128 H 119 H Lactic Acid Calcium 7.7 L AST Alkaline Phosphatase < 5 L Lactate Dehydrogenase Total Creatine Kinase CK-MB (CK-2) C-Reactive Protein Total Protein 4.6 L Albumin < 0.2 L Urine WBC (Auto) Urine Creatinine Urine Total Protein Coronavirus (PCR) 06/09/20 06/10/20 06/10/20 17:32 00:00 05:49 WBC RBC Hgb Hct RDW Lymph % (Auto) Nye % (Auto) Eos % (Auto) Lymph # Nye # Seg Neutrophils % Seg Neuts % (Manual) Lymphocytes % (Manual) Seg Neutrophils # Seg Neutrophils # Man Lymphocytes # (Manual) Monocytes # (Manual) D-Dimer Heparin Anti-Xa Level 0.19 L ABG pH ABG pO2 ABG HCO3 ABG O2 Saturation ABG Base Excess ABG Hemoglobin VBG pH Oxyhemoglobin Sodium Potassium Chloride Carbon Dioxide BUN Creatinine Glucose POC Glucose 106 H 117 H Lactic Acid Calcium AST Alkaline Phosphatase Lactate Dehydrogenase Total Creatine Kinase CK-MB (CK-2) C-Reactive Protein Total Protein Albumin Urine WBC (Auto) Urine Creatinine Urine Total Protein Coronavirus (PCR) 06/10/20 06/10/20 06/10/20 05:54 07:40 11:40 WBC RBC Hgb Hct RDW Lymph % (Auto) Nye % (Auto) Eos % (Auto) Lymph # Nye # Seg Neutrophils % Seg Neuts % (Manual) Lymphocytes % (Manual) Seg Neutrophils # Seg Neutrophils # Man Lymphocytes # (Manual) Monocytes # (Manual) D-Dimer Heparin Anti-Xa Level ABG pH ABG pO2 ABG HCO3 ABG O2 Saturation ABG Base Excess ABG Hemoglobin VBG pH Oxyhemoglobin Sodium 146 H D Potassium Chloride Carbon Dioxide 20 L BUN 99 H Creatinine 1.9 H Glucose 121 H POC Glucose 127 H 138 H Lactic Acid Calcium 8.2 L AST Alkaline Phosphatase Lactate Dehydrogenase Total Creatine Kinase CK-MB (CK-2) C-Reactive Protein Total Protein Albumin Urine WBC (Auto) Urine Creatinine Urine Total Protein Coronavirus (PCR) 06/10/20 06/10/20 06/10/20 14:44 17:31 23:22 WBC RBC Hgb Hct RDW Lymph % (Auto) Nye % (Auto) Eos % (Auto) Lymph # Nye # Seg Neutrophils % Seg Neuts % (Manual) Lymphocytes % (Manual) Seg Neutrophils # Seg Neutrophils # Man Lymphocytes # (Manual) Monocytes # (Manual) D-Dimer Heparin Anti-Xa Level 0.17 L ABG pH ABG pO2 ABG HCO3 ABG O2 Saturation ABG Base Excess ABG Hemoglobin VBG pH Oxyhemoglobin Sodium Potassium Chloride Carbon Dioxide BUN Creatinine Glucose POC Glucose 128 H 114 H Lactic Acid Calcium AST Alkaline Phosphatase Lactate Dehydrogenase Total Creatine Kinase CK-MB (CK-2) C-Reactive Protein Total Protein Albumin Urine WBC (Auto) Urine Creatinine Urine Total Protein Coronavirus (PCR) 06/11/20 06/11/20 06/11/20 00:22 03:45 03:45 WBC 14.6 H RBC 2.77 L Hgb 7.9 L Hct 24.3 L RDW 16.8 H Lymph % (Auto) 6.6 L Nye % (Auto) 8.5 H Eos % (Auto) Lymph # 1.0 L Nye # 1.2 H Seg Neutrophils % 82.9 H Seg Neuts % (Manual) Lymphocytes % (Manual) Seg Neutrophils # 12.1 H Seg Neutrophils # Man Lymphocytes # (Manual) Monocytes # (Manual) D-Dimer Heparin Anti-Xa Level 0.24 L ABG pH ABG pO2 ABG HCO3 ABG O2 Saturation ABG Base Excess ABG Hemoglobin VBG pH Oxyhemoglobin Sodium Potassium Chloride Carbon Dioxide 20 L BUN 88 H Creatinine 1.5 H Glucose 111 H POC Glucose Lactic Acid Calcium 8.2 L AST Alkaline Phosphatase Lactate Dehydrogenase Total Creatine Kinase CK-MB (CK-2) C-Reactive Protein Total Protein Albumin Urine WBC (Auto) Urine Creatinine Urine Total Protein Coronavirus (PCR) 06/11/20 06/11/20 06/11/20 06:03 10:22 11:11 WBC RBC Hgb Hct RDW Lymph % (Auto) Nye % (Auto) Eos % (Auto) Lymph # Nye # Seg Neutrophils % Seg Neuts % (Manual) Lymphocytes % (Manual) Seg Neutrophils # Seg Neutrophils # Man Lymphocytes # (Manual) Monocytes # (Manual) D-Dimer Heparin Anti-Xa Level 0.26 L ABG pH ABG pO2 ABG HCO3 ABG O2 Saturation ABG Base Excess ABG Hemoglobin 9.6 L VBG pH Oxyhemoglobin Sodium Potassium Chloride Carbon Dioxide BUN Creatinine Glucose POC Glucose 114 H Lactic Acid Calcium AST Alkaline Phosphatase Lactate Dehydrogenase Total Creatine Kinase CK-MB (CK-2) C-Reactive Protein Total Protein Albumin Urine WBC (Auto) Urine Creatinine Urine Total Protein Coronavirus (PCR) 06/11/20 06/11/20 06/12/20 12:24 17:24 00:21 WBC RBC Hgb Hct RDW Lymph % (Auto) Nye % (Auto) Eos % (Auto) Lymph # Nye # Seg Neutrophils % Seg Neuts % (Manual) Lymphocytes % (Manual) Seg Neutrophils # Seg Neutrophils # Man Lymphocytes # (Manual) Monocytes # (Manual) D-Dimer Heparin Anti-Xa Level ABG pH ABG pO2 ABG HCO3 ABG O2 Saturation ABG Base Excess ABG Hemoglobin VBG pH Oxyhemoglobin Sodium Potassium Chloride Carbon Dioxide BUN Creatinine Glucose POC Glucose 119 H 126 H 117 H Lactic Acid Calcium AST Alkaline Phosphatase Lactate Dehydrogenase Total Creatine Kinase CK-MB (CK-2) C-Reactive Protein Total Protein Albumin Urine WBC (Auto) Urine Creatinine Urine Total Protein Coronavirus (PCR) 06/12/20 06/12/20 06/12/20 02:46 02:46 05:46 WBC 13.2 H RBC 2.83 L Hgb 8.3 L Hct 24.3 L RDW 16.6 H Lymph % (Auto) 6.2 L Nye % (Auto) 9.5 H Eos % (Auto) Lymph # 0.8 L Nye # 1.3 H Seg Neutrophils % 81.9 H Seg Neuts % (Manual) Lymphocytes % (Manual) Seg Neutrophils # 10.9 H Seg Neutrophils # Man Lymphocytes # (Manual) Monocytes # (Manual) D-Dimer Heparin Anti-Xa Level ABG pH ABG pO2 ABG HCO3 ABG O2 Saturation ABG Base Excess ABG Hemoglobin VBG pH Oxyhemoglobin Sodium Potassium 3.5 L Chloride Carbon Dioxide BUN 77 H Creatinine 1.3 H Glucose POC Glucose 132 H Lactic Acid Calcium 8.3 L AST Alkaline Phosphatase Lactate Dehydrogenase Total Creatine Kinase CK-MB (CK-2) C-Reactive Protein Total Protein Albumin Urine WBC (Auto) Urine Creatinine Urine Total Protein Coronavirus (PCR) 06/12/20 06/12/20 06/12/20 09:20 12:16 17:48 WBC RBC Hgb Hct RDW Lymph % (Auto) Nye % (Auto) Eos % (Auto) Lymph # Nye # Seg Neutrophils % Seg Neuts % (Manual) Lymphocytes % (Manual) Seg Neutrophils # Seg Neutrophils # Man Lymphocytes # (Manual) Monocytes # (Manual) D-Dimer Heparin Anti-Xa Level ABG pH ABG pO2 91.1 H ABG HCO3 ABG O2 Saturation ABG Base Excess ABG Hemoglobin VBG pH Oxyhemoglobin 94.8 L Sodium Potassium Chloride Carbon Dioxide BUN Creatinine Glucose POC Glucose 167 H 182 H Lactic Acid Calcium AST Alkaline Phosphatase Lactate Dehydrogenase Total Creatine Kinase CK-MB (CK-2) C-Reactive Protein Total Protein Albumin Urine WBC (Auto) Urine Creatinine Urine Total Protein Coronavirus (PCR) 06/13/20 06/13/20 06/13/20 00:08 05:37 09:09 WBC RBC Hgb Hct RDW Lymph % (Auto) Nye % (Auto) Eos % (Auto) Lymph # Nye # Seg Neutrophils % Seg Neuts % (Manual) Lymphocytes % (Manual) Seg Neutrophils # Seg Neutrophils # Man Lymphocytes # (Manual) Monocytes # (Manual) D-Dimer Heparin Anti-Xa Level 0.86 H ABG pH ABG pO2 ABG HCO3 ABG O2 Saturation ABG Base Excess ABG Hemoglobin VBG pH Oxyhemoglobin Sodium Potassium Chloride Carbon Dioxide BUN Creatinine Glucose POC Glucose 142 H 119 H Lactic Acid Calcium AST Alkaline Phosphatase Lactate Dehydrogenase Total Creatine Kinase CK-MB (CK-2) C-Reactive Protein Total Protein Albumin Urine WBC (Auto) Urine Creatinine Urine Total Protein Coronavirus (PCR) 06/13/20 06/13/20 06/13/20 12:28 17:55 21:17 WBC RBC Hgb Hct RDW Lymph % (Auto) Nye % (Auto) Eos % (Auto) Lymph # Nye # Seg Neutrophils % Seg Neuts % (Manual) Lymphocytes % (Manual) Seg Neutrophils # Seg Neutrophils # Man Lymphocytes # (Manual) Monocytes # (Manual) D-Dimer Heparin Anti-Xa Level ABG pH ABG pO2 ABG HCO3 ABG O2 Saturation ABG Base Excess ABG Hemoglobin VBG pH Oxyhemoglobin Sodium Potassium Chloride Carbon Dioxide BUN 61 H Creatinine Glucose 131 H POC Glucose 165 H 174 H Lactic Acid Calcium AST Alkaline Phosphatase Lactate Dehydrogenase Total Creatine Kinase CK-MB (CK-2) C-Reactive Protein Total Protein Albumin Urine WBC (Auto) Urine Creatinine Urine Total Protein Coronavirus (PCR) 06/13/20 06/13/20 06/14/20 21:17 23:50 05:34 WBC RBC Hgb Hct RDW Lymph % (Auto) Nye % (Auto) Eos % (Auto) Lymph # Nye # Seg Neutrophils % Seg Neuts % (Manual) Lymphocytes % (Manual) Seg Neutrophils # Seg Neutrophils # Man Lymphocytes # (Manual) Monocytes # (Manual) D-Dimer Heparin Anti-Xa Level 0.72 H ABG pH ABG pO2 ABG HCO3 ABG O2 Saturation ABG Base Excess ABG Hemoglobin VBG pH Oxyhemoglobin Sodium 146 H Potassium Chloride 107.6 H Carbon Dioxide BUN 61 H Creatinine 1.3 H Glucose 135 H POC Glucose 146 H Lactic Acid Calcium AST Alkaline Phosphatase Lactate Dehydrogenase Total Creatine Kinase CK-MB (CK-2) C-Reactive Protein Total Protein Albumin Urine WBC (Auto) Urine Creatinine Urine Total Protein Coronavirus (PCR) 06/14/20 06/14/20 06/14/20 06:11 09:28 11:30 WBC RBC Hgb Hct RDW Lymph % (Auto) Nye % (Auto) Eos % (Auto) Lymph # Nye # Seg Neutrophils % Seg Neuts % (Manual) Lymphocytes % (Manual) Seg Neutrophils # Seg Neutrophils # Man Lymphocytes # (Manual) Monocytes # (Manual) D-Dimer Heparin Anti-Xa Level 0.90 H ABG pH ABG pO2 ABG HCO3 ABG O2 Saturation ABG Base Excess ABG Hemoglobin VBG pH Oxyhemoglobin Sodium Potassium Chloride Carbon Dioxide BUN Creatinine Glucose POC Glucose 141 H 186 H Lactic Acid Calcium AST Alkaline Phosphatase Lactate Dehydrogenase Total Creatine Kinase CK-MB (CK-2) C-Reactive Protein Total Protein Albumin Urine WBC (Auto) Urine Creatinine Urine Total Protein Coronavirus (PCR) 06/14/20 06/14/20 06/14/20 16:07 18:16 23:51 WBC RBC Hgb Hct RDW Lymph % (Auto) Nye % (Auto) Eos % (Auto) Lymph # Nye # Seg Neutrophils % Seg Neuts % (Manual) Lymphocytes % (Manual) Seg Neutrophils # Seg Neutrophils # Man Lymphocytes # (Manual) Monocytes # (Manual) D-Dimer Heparin Anti-Xa Level 0.82 H ABG pH ABG pO2 ABG HCO3 ABG O2 Saturation ABG Base Excess ABG Hemoglobin VBG pH Oxyhemoglobin Sodium Potassium Chloride Carbon Dioxide BUN Creatinine Glucose POC Glucose 106 H 154 H Lactic Acid Calcium AST Alkaline Phosphatase Lactate Dehydrogenase Total Creatine Kinase CK-MB (CK-2) C-Reactive Protein Total Protein Albumin Urine WBC (Auto) Urine Creatinine Urine Total Protein Coronavirus (PCR) 06/15/20 06/15/20 06/15/20 04:24 04:24 05:59 WBC RBC 2.75 L Hgb 7.9 L Hct 24.0 L RDW 16.4 H Lymph % (Auto) 12.9 L Nye % (Auto) 8.7 H Eos % (Auto) 4.6 H Lymph # 1.1 L Nye # Seg Neutrophils % 73.2 H Seg Neuts % (Manual) Lymphocytes % (Manual) Seg Neutrophils # Seg Neutrophils # Man Lymphocytes # (Manual) Monocytes # (Manual) D-Dimer Heparin Anti-Xa Level ABG pH ABG pO2 ABG HCO3 ABG O2 Saturation ABG Base Excess ABG Hemoglobin VBG pH Oxyhemoglobin Sodium Potassium 3.4 L Chloride Carbon Dioxide BUN 55 H Creatinine 1.3 H Glucose 142 H POC Glucose 131 H Lactic Acid Calcium AST Alkaline Phosphatase Lactate Dehydrogenase Total Creatine Kinase CK-MB (CK-2) C-Reactive Protein Total Protein Albumin Urine WBC (Auto) Urine Creatinine Urine Total Protein Coronavirus (PCR) 06/15/20 06/15/20 06/16/20 12:33 17:07 00:22 WBC RBC Hgb Hct RDW Lymph % (Auto) Nye % (Auto) Eos % (Auto) Lymph # Nye # Seg Neutrophils % Seg Neuts % (Manual) Lymphocytes % (Manual) Seg Neutrophils # Seg Neutrophils # Man Lymphocytes # (Manual) Monocytes # (Manual) D-Dimer Heparin Anti-Xa Level 0.21 L ABG pH ABG pO2 ABG HCO3 ABG O2 Saturation ABG Base Excess ABG Hemoglobin VBG pH Oxyhemoglobin Sodium Potassium Chloride Carbon Dioxide BUN Creatinine Glucose POC Glucose 180 H 185 H Lactic Acid Calcium AST Alkaline Phosphatase Lactate Dehydrogenase Total Creatine Kinase CK-MB (CK-2) C-Reactive Protein Total Protein Albumin Urine WBC (Auto) Urine Creatinine Urine Total Protein Coronavirus (PCR) 06/16/20 06/16/20 06/16/20 01:45 08:06 09:15 WBC RBC Hgb Hct RDW Lymph % (Auto) Nye % (Auto) Eos % (Auto) Lymph # Nye # Seg Neutrophils % Seg Neuts % (Manual) Lymphocytes % (Manual) Seg Neutrophils # Seg Neutrophils # Man Lymphocytes # (Manual) Monocytes # (Manual) D-Dimer Heparin Anti-Xa Level ABG pH ABG pO2 ABG HCO3 ABG O2 Saturation ABG Base Excess ABG Hemoglobin VBG pH Oxyhemoglobin Sodium Potassium Chloride Carbon Dioxide BUN 49 H Creatinine Glucose 154 H POC Glucose 140 H 171 H Lactic Acid Calcium AST Alkaline Phosphatase Lactate Dehydrogenase Total Creatine Kinase CK-MB (CK-2) C-Reactive Protein Total Protein Albumin Urine WBC (Auto) Urine Creatinine Urine Total Protein Coronavirus (PCR) 06/16/20 06/16/20 06/16/20 10:46 12:33 17:54 WBC RBC Hgb Hct RDW Lymph % (Auto) Nye % (Auto) Eos % (Auto) Lymph # Nye # Seg Neutrophils % Seg Neuts % (Manual) Lymphocytes % (Manual) Seg Neutrophils # Seg Neutrophils # Man Lymphocytes # (Manual) Monocytes # (Manual) D-Dimer Heparin Anti-Xa Level 0.12 L ABG pH ABG pO2 ABG HCO3 ABG O2 Saturation ABG Base Excess ABG Hemoglobin VBG pH Oxyhemoglobin Sodium Potassium Chloride Carbon Dioxide BUN Creatinine Glucose POC Glucose 166 H 151 H Lactic Acid Calcium AST Alkaline Phosphatase Lactate Dehydrogenase Total Creatine Kinase CK-MB (CK-2) C-Reactive Protein Total Protein Albumin Urine WBC (Auto) Urine Creatinine Urine Total Protein Coronavirus (PCR) 06/16/20 06/17/20 06/17/20 18:47 00:00 02:19 WBC RBC Hgb Hct RDW Lymph % (Auto) Nye % (Auto) Eos % (Auto) Lymph # Nye # Seg Neutrophils % Seg Neuts % (Manual) Lymphocytes % (Manual) Seg Neutrophils # Seg Neutrophils # Man Lymphocytes # (Manual) Monocytes # (Manual) D-Dimer Heparin Anti-Xa Level 0.73 H 0.77 H ABG pH ABG pO2 ABG HCO3 ABG O2 Saturation ABG Base Excess ABG Hemoglobin VBG pH Oxyhemoglobin Sodium Potassium Chloride Carbon Dioxide BUN Creatinine Glucose POC Glucose 139 H Lactic Acid Calcium AST Alkaline Phosphatase Lactate Dehydrogenase Total Creatine Kinase CK-MB (CK-2) C-Reactive Protein Total Protein Albumin Urine WBC (Auto) Urine Creatinine Urine Total Protein Coronavirus (PCR) 06/17/20 06/17/20 06/17/20 06:07 11:42 16:43 WBC RBC Hgb Hct RDW Lymph % (Auto) Nye % (Auto) Eos % (Auto) Lymph # Nye # Seg Neutrophils % Seg Neuts % (Manual) Lymphocytes % (Manual) Seg Neutrophils # Seg Neutrophils # Man Lymphocytes # (Manual) Monocytes # (Manual) D-Dimer Heparin Anti-Xa Level 0.73 H ABG pH ABG pO2 ABG HCO3 ABG O2 Saturation ABG Base Excess ABG Hemoglobin VBG pH Oxyhemoglobin Sodium Potassium Chloride Carbon Dioxide BUN Creatinine Glucose POC Glucose 169 H 169 H Lactic Acid Calcium AST Alkaline Phosphatase Lactate Dehydrogenase Total Creatine Kinase CK-MB (CK-2) C-Reactive Protein Total Protein Albumin Urine WBC (Auto) Urine Creatinine Urine Total Protein Coronavirus (PCR) 06/17/20 06/17/20 06/17/20 18:18 23:08 23:16 WBC RBC Hgb Hct RDW Lymph % (Auto) Nye % (Auto) Eos % (Auto) Lymph # Nye # Seg Neutrophils % Seg Neuts % (Manual) Lymphocytes % (Manual) Seg Neutrophils # Seg Neutrophils # Man Lymphocytes # (Manual) Monocytes # (Manual) D-Dimer Heparin Anti-Xa Level 0.71 H ABG pH ABG pO2 ABG HCO3 ABG O2 Saturation ABG Base Excess ABG Hemoglobin VBG pH Oxyhemoglobin Sodium Potassium Chloride Carbon Dioxide BUN Creatinine Glucose POC Glucose 159 H 134 H Lactic Acid Calcium AST Alkaline Phosphatase Lactate Dehydrogenase Total Creatine Kinase CK-MB (CK-2) C-Reactive Protein Total Protein Albumin Urine WBC (Auto) Urine Creatinine Urine Total Protein Coronavirus (PCR) 06/18/20 06/18/20 06/18/20 04:42 05:52 11:50 WBC RBC Hgb Hct RDW Lymph % (Auto) Nye % (Auto) Eos % (Auto) Lymph # Nye # Seg Neutrophils % Seg Neuts % (Manual) Lymphocytes % (Manual) Seg Neutrophils # Seg Neutrophils # Man Lymphocytes # (Manual) Monocytes # (Manual) D-Dimer Heparin Anti-Xa Level ABG pH ABG pO2 ABG HCO3 ABG O2 Saturation ABG Base Excess ABG Hemoglobin VBG pH Oxyhemoglobin Sodium Potassium Chloride Carbon Dioxide BUN 44 H Creatinine Glucose 115 H POC Glucose 171 H 167 H Lactic Acid Calcium AST Alkaline Phosphatase Lactate Dehydrogenase Total Creatine Kinase CK-MB (CK-2) C-Reactive Protein Total Protein Albumin Urine WBC (Auto) Urine Creatinine Urine Total Protein Coronavirus (PCR) 06/18/20 06/19/20 06/19/20 23:46 05:48 07:52 WBC RBC Hgb Hct RDW Lymph % (Auto) Nye % (Auto) Eos % (Auto) Lymph # Nye # Seg Neutrophils % Seg Neuts % (Manual) Lymphocytes % (Manual) Seg Neutrophils # Seg Neutrophils # Man Lymphocytes # (Manual) Monocytes # (Manual) D-Dimer Heparin Anti-Xa Level ABG pH ABG pO2 ABG HCO3 ABG O2 Saturation ABG Base Excess ABG Hemoglobin VBG pH Oxyhemoglobin Sodium Potassium Chloride Carbon Dioxide BUN Creatinine Glucose POC Glucose 130 H 207 H 175 H Lactic Acid Calcium AST Alkaline Phosphatase Lactate Dehydrogenase Total Creatine Kinase CK-MB (CK-2) C-Reactive Protein Total Protein Albumin Urine WBC (Auto) Urine Creatinine Urine Total Protein Coronavirus (PCR) 06/19/20 06/19/20 06/20/20 11:42 22:54 05:17 WBC RBC Hgb Hct RDW Lymph % (Auto) Nye % (Auto) Eos % (Auto) Lymph # Nye # Seg Neutrophils % Seg Neuts % (Manual) Lymphocytes % (Manual) Seg Neutrophils # Seg Neutrophils # Man Lymphocytes # (Manual) Monocytes # (Manual) D-Dimer Heparin Anti-Xa Level ABG pH ABG pO2 ABG HCO3 ABG O2 Saturation ABG Base Excess ABG Hemoglobin VBG pH Oxyhemoglobin Sodium Potassium Chloride Carbon Dioxide BUN Creatinine Glucose POC Glucose 166 H 135 H 218 H Lactic Acid Calcium AST Alkaline Phosphatase Lactate Dehydrogenase Total Creatine Kinase CK-MB (CK-2) C-Reactive Protein Total Protein Albumin Urine WBC (Auto) Urine Creatinine Urine Total Protein Coronavirus (PCR) 06/20/20 06/20/20 06/20/20 12:04 16:25 16:35 WBC RBC Hgb Hct RDW Lymph % (Auto) Nye % (Auto) Eos % (Auto) Lymph # Nye # Seg Neutrophils % Seg Neuts % (Manual) Lymphocytes % (Manual) Seg Neutrophils # Seg Neutrophils # Man Lymphocytes # (Manual) Monocytes # (Manual) D-Dimer Heparin Anti-Xa Level ABG pH ABG pO2 59.6 L ABG HCO3 28.7 H ABG O2 Saturation 93.5 L ABG Base Excess 3.4 H ABG Hemoglobin 7.2 L VBG pH Oxyhemoglobin 91.3 L Sodium Potassium Chloride Carbon Dioxide BUN Creatinine Glucose POC Glucose 194 H 137 H Lactic Acid Calcium AST Alkaline Phosphatase Lactate Dehydrogenase Total Creatine Kinase CK-MB (CK-2) C-Reactive Protein Total Protein Albumin Urine WBC (Auto) Urine Creatinine Urine Total Protein Coronavirus (PCR) 06/20/20 06/21/20 06/21/20 23:59 06:25 12:01 WBC RBC Hgb Hct RDW Lymph % (Auto) Nye % (Auto) Eos % (Auto) Lymph # Nye # Seg Neutrophils % Seg Neuts % (Manual) Lymphocytes % (Manual) Seg Neutrophils # Seg Neutrophils # Man Lymphocytes # (Manual) Monocytes # (Manual) D-Dimer Heparin Anti-Xa Level ABG pH ABG pO2 ABG HCO3 ABG O2 Saturation ABG Base Excess ABG Hemoglobin VBG pH Oxyhemoglobin Sodium Potassium Chloride Carbon Dioxide BUN Creatinine Glucose POC Glucose 156 H 177 H 195 H Lactic Acid Calcium AST Alkaline Phosphatase Lactate Dehydrogenase Total Creatine Kinase CK-MB (CK-2) C-Reactive Protein Total Protein Albumin Urine WBC (Auto) Urine Creatinine Urine Total Protein Coronavirus (PCR) Chest x-ray: image reviewed (stable [id number] infiltrates) Allied health notes reviewed: RT
--- NOTE | 2020-06-21 19:29 | Progress Note ---
Assessment and Plan Assessment and plan: --COVID-19 positive 05/28/2020 --Superficial left cephalic vein DVT/elevated D-dimers[COVID 19] Patient is on heparin drip from 05/29/20 D-dimers improved [id number] DC heparin drip, start Eliquis 5 mg twice a day for 1 more week[per ID] -- Acute hypoxemic respiratory failure From COVID-19 viral infection extubated on , on high flow o2 -- s/p PEA Cardiac arrest Cardiology team on board Conservative management as per cardiology -- Acute metabolic encephalopathy, POA likely from sepsis and s/p cardiac arrest with possible anoxic injury -- Acute renal failure: likely ATN Cr slowly improving Avoid ACEI and other nephrotoxic medications Nephrology following -- Coronavirus infection with b/l PNA Completed remdesivir on 06/02 Completed dexamethasone - Last dose 06/07 ID recs appreciated. --Klebsiella pneumonia: Completed antibiotics --CHF (congestive heart failure) Cardiology following. Ef 45% -- Coffee ground emesis -Stress ulcers Possible stress ulcers, On PPI H/H remains stable GI evaluation if Hb drops again -- Hypertension; moderate control Continue amlodipine, coreg, clonidine and hydralazine --Mild LFT elevation: likely from COVID-19. -- DVT prophylaxis Eliquis, SCD to bilateral lower extremities while in bed -- Advance care planning Patient is full code. poor prognosis Patient is critically ill with multiple medical problems Poor prognosis Plan of care reviewed with the patient and his nurse 06/13: extubated yesterday, now on Bipap 06/14: patient on Bipap, remains on TF, restraint. cont to follow clinically 06/15: patient on high flow O2,remains on TF, restraint. cont to follow clinically. transfer to IMCU 06/16: Patient remains on high flow O2, intermittently on BiPAP. Tolerating tube feeding. cont to monitor at IMCU 06/17; patient on BiPAP. Remains confused and on tube feeding. Continue to monitor at IMCU. Wean off O2 as tolerated. 06/18; patient feels slightly better on high flow oxygen, minimally communicative, stable to be transferred out of [facility] to telemetry 06/20; remains hypoxic on high flow oxygen, today noncommunicative sleeping all the time, vital signs noted 06/21; more alert and awake confused at times and pulling, restraint for safety, on high flow oxygen We will request physical therapy once more stable History Interval history: COVID positive patient ; I have seen and examined the patient at the bedside this morning Isolation precautions and PPE protocols strictly followed Patient remains confused minimally communicative On Ventimask, In mild distress, morbidly obese Vital signs noted Hospitalist Physical - Constitutional Vitals: Temp Pulse Resp BP Pulse Ox 98.9 F 86 32 H 147/48 95 06/21/20 16:28 06/21/20 16:28 06/21/20 16:28 06/21/20 16:28 06/21/20 16:28 General appearance: Present: mild distress, well-nourished, obese (Morbidly obese), other (On high flow oxygen) - EENT Eyes: Present: PERRL, EOM intact - Neck Neck: Present: supple, normal ROM - Respiratory Respiratory effort: normal Respiratory: bilateral: diminished, rhonchi, negative: rales, wheezing - Cardiovascular Rhythm: regular Heart Sounds: Present: S1 & S2 - Extremities Extremities: no ischemia, No edema - Abdominal General gastrointestinal: soft, non-tender, non-distended, normal bowel sounds - Integumentary Integumentary: Present: clear, warm - Psychiatric Psychiatric: other (Minimally communicative) - Neurologic Neurologic: moves all extremities Results - Labs CBC & Chem 7: 06/15/20 04:24 06/18/20 04:42 Labs: Laboratory Last Values WBC 8.8 K/mm3 (4.5-11.0) 06/15/20 04:24 RBC 2.75 M/mm3 (3.65-5.03) L 06/15/20 04:24 Hgb 7.9 gm/dl (10.1-14.3) L 06/15/20 04:24 Hct 24.0 % (30.3-42.9) L 06/15/20 04:24 MCV 87 fl (79-97) 06/15/20 04:24 MCH 29 pg (28-32) 06/15/20 04:24 MCHC 33 % (30-34) 06/15/20 04:24 RDW 16.4 % (13.2-15.2) H 06/15/20 04:24 Plt Count 203 K/mm3 (140-440) 06/15/20 04:24 Lymph % (Auto) 12.9 % (13.4-35.0) L 06/15/20 04:24 [place] % (Auto) 8.7 % (0.0-7.3) H 06/15/20 04:24 Eos % (Auto) 4.6 % (0.0-4.3) H 06/15/20 04:24 Baso % (Auto) 0.6 % (0.0-1.8) 06/15/20 04:24 Lymph # 1.1 K/mm3 (1.2-5.4) L 06/15/20 04:24 [place] # 0.8 K/mm3 (0.0-0.8) 06/15/20 04:24 Eos # 0.4 K/mm3 (0.0-0.4) 06/15/20 04:24 Baso # 0.1 K/mm3 (0.0-0.1) 06/15/20 04:24 Add Manual Diff Complete 06/09/20 05:16 Total Counted 100 06/09/20 05:16 Seg Neutrophils % 73.2 % (40.0-70.0) H 06/15/20 04:24 Seg Neuts % (Manual) 85.0 % (40.0-70.0) H 06/09/20 05:16 Band Neutrophils % 0 % 06/09/20 05:16 Lymphocytes % (Manual) 7.0 % (13.4-35.0) L 06/09/20 05:16 Reactive Lymphs % (Man) 0 % 06/09/20 05:16 Monocytes % (Manual) 7.0 % (0.0-7.3) 06/09/20 05:16 Eosinophils % (Manual) 1.0 % (0.0-4.3) 06/09/20 05:16 Basophils % (Manual) 0 % (0.0-1.8) 06/09/20 05:16 Metamyelocytes % 0 % 06/09/20 05:16 Myelocytes % 0 % 06/09/20 05:16 Promyelocytes % 0 % 06/09/20 05:16 Blast Cells % 0 % 06/09/20 05:16 Nucleated RBC % Not Reportable 06/09/20 05:16 Seg Neutrophils # 6.4 K/mm3 (1.8-7.7) 06/15/20 04:24 Seg Neutrophils # Man 16.2 K/mm3 (1.8-7.7) H 06/09/20 05:16 Band Neutrophils # 0.0 K/mm3 06/09/20 05:16 Lymphocytes # (Manual) 1.3 K/mm3 (1.2-5.4) 06/09/20 05:16 Abs React Lymphs (Man) 0.0 K/mm3 06/09/20 05:16 Monocytes # (Manual) 1.3 K/mm3 (0.0-0.8) H 06/09/20 05:16 Eosinophils # (Manual) 0.2 K/mm3 (0.0-0.4) 06/09/20 05:16 Basophils # (Manual) 0.0 K/mm3 (0.0-0.1) 06/09/20 05:16 Metamyelocytes # 0.0 K/mm3 06/09/20 05:16 Myelocytes # 0.0 K/mm3 06/09/20 05:16 Promyelocytes # 0.0 K/mm3 06/09/20 05:16 Blast Cells # 0.0 K/mm3 06/09/20 05:16 WBC Morphology Not Reportable 06/09/20 05:16 Hypersegmented Neuts Not Reportable 06/09/20 05:16 Hyposegmented Neuts Not Reportable 06/09/20 05:16 Hypogranular Neuts Not Reportable 06/09/20 05:16 Smudge Cells Not Reportable 06/09/20 05:16 Toxic Granulation Not Reportable 06/09/20 05:16 Toxic Vacuolation Not Reportable 06/09/20 05:16 Dohle Bodies Not Reportable 06/09/20 05:16 Pelger-Huet Anomaly Not Reportable 06/09/20 05:16 Sanjuanita Rods Not Reportable 06/09/20 05:16 Platelet Estimate Consistent w auto 06/09/20 05:16 Clumped Platelets Not Reportable 06/09/20 05:16 Plt Clumps, EDTA Not Reportable 06/09/20 05:16 Large Platelets Not Reportable 06/09/20 05:16 Giant Platelets Not Reportable 06/09/20 05:16 Platelet Satelliting Not Reportable 06/09/20 05:16 Plt Morphology Comment Not Reportable 06/09/20 05:16 RBC Morphology Not Reportable 06/09/20 05:16 Dimorphic RBCs Not Reportable 06/09/20 05:16 Polychromasia Rare 06/09/20 05:16 Hypochromasia Few 06/09/20 05:16 Poikilocytosis Not Reportable 06/09/20 05:16 Anisocytosis Few 06/09/20 05:16 Microcytosis Not Reportable 06/09/20 05:16 Macrocytosis Not Reportable 06/09/20 05:16 Spherocytes Not Reportable 06/09/20 05:16 Pappenheimer Bodies Not Reportable 06/09/20 05:16 Sickle Cells Not Reportable 06/09/20 05:16 Target Cells Not Reportable 06/09/20 05:16 Tear Drop Cells Not Reportable 06/09/20 05:16 Ovalocytes Not Reportable 06/09/20 05:16 Helmet Cells Not Reportable 06/09/20 05:16 Jones-Ch[place]au Bodies Not Reportable 06/09/20 05:16 Blandon Rings Not Reportable 06/09/20 05:16 [place] Cells Not Reportable 06/09/20 05:16 Bite Cells Not Reportable 06/09/20 05:16 Crenated Cell Not Reportable 06/09/20 05:16 Elliptocytes Not Reportable 06/09/20 05:16 Acanthocytes (Spur) Not Reportable 06/09/20 05:16 Rouleaux Not Reportable 06/09/20 05:16 Hemoglobin C Crystals Not Reportable 06/09/20 05:16 Schistocytes Not Reportable 06/09/20 05:16 Malaria parasites Not Reportable 06/09/20 05:16 Kev Bodies Not Reportable 06/09/20 05:16 Hem Pathologist Commnt No 06/09/20 05:16 PT 14.2 Sec. (12.2-14.9) 05/29/20 15:10 INR 1.08 (0.87-1.13) 05/29/20 15:10 APTT 27.2 Sec. (24.2-36.6) 05/29/20 15:10 D-Dimer 414.52 ng/mlDDU (0-234) H 06/04/20 04:19 Heparin Anti-Xa Level 0.34 U.I./ml (0.3-0.7) 06/19/20 10:46 ABG pH 7.393 pH Units (7.350-7.450) 06/20/20 16:35 POC ABG pCO2 37.4 mmHg (32.0-48.0) 06/11/20 11:11 ABG pCO2 48.2 mm Hg 06/20/20 16:35 POC ABG pO2 101.9 mmHg (83-108) 06/11/20 11:11 ABG pO2 59.6 mm Hg (80.0-90.0) L 06/20/20 16:35 ABG HCO3 28.7 mmol/L (20.0-26.0) H 06/20/20 16:35 ABG O2 Saturation 93.5 % (95.0-99.0) L 06/20/20 16:35 ABG O2 Content 9.4 (0.0-44) 06/20/20 16:35 ABG Base Excess 3.4 mmol/L (-2.0-3.0) H 06/20/20 16:35 ABG Hemoglobin 7.2 gm/dl (12.0-16.0) L 06/20/20 16:35 ABG Carboxyhemoglobin 1.7 % (0.0-5.0) 06/20/20 16:35 ABG Methemoglobin 0.6 % (0.0-1.5) 06/20/20 16:35 VBG pH 7.152 (7.320-7.420) L* 05/28/20 13:47 Oxyhemoglobin 91.3 % (95.0-99.0) L 06/20/20 16:35 FiO2 30 % 06/20/20 16:35 Sodium 142 mmol/L (137-145) 06/18/20 04:42 Potassium 3.9 mmol/L (3.6-5.0) 06/18/20 04:42 Chloride 104.1 mmol/L (98-107) 06/18/20 04:42 Carbon Dioxide 26 mmol/L (22-30) 06/18/20 04:42 Anion Gap 16 mmol/L 06/18/20 04:42 BUN 44 mg/dL (7-17) H 06/18/20 04:42 Creatinine 1.1 mg/dL (0.6-1.2) 06/18/20 04:42 Estimated GFR 50 ml/min 06/18/20 04:42 BUN/Creatinine Ratio 40 % 06/18/20 04:42 Glucose 115 mg/dL (65-100) H 06/18/20 04:42 POC Glucose 156 (70-105) H 06/21/20 17:04 Lactic Acid 1.90 mmol/L (0.7-2.0) 05/28/20 14:46 Calcium 9.3 mg/dL (8.4-10.2) 06/18/20 04:42 Ferritin 100.7 ng/mL (10.0-200.0) 06/04/20 04:19 Total Bilirubin 0.20 mg/dL (0.1-1.2) 06/09/20 05:16 AST 16 units/L (5-40) 06/09/20 05:16 ALT 14 units/L (7-56) 06/09/20 05:16 Alkaline Phosphatase < 5 units/L (35-129) L 06/09/20 05:16 Lactate Dehydrogenase 271 units/L (91-180) H 06/04/20 04:19 Total Creatine Kinase 301 units/L (30-135) H 05/28/20 13:47 CK-MB (CK-2) 4.3 ng/mL (0.0-4.0) H 05/28/20 13:47 CK-MB (CK-2) Rel Index 1.4 (0-4) 05/28/20 13:47 C-Reactive Protein 2.20 mg/dL (0.00-1.30) H 06/04/20 04:19 Total Protein 4.6 g/dL (6.3-8.2) L 06/09/20 05:16 Albumin < 0.2 g/dL (3.9-5) L 06/09/20 05:16 Albumin/Globulin Ratio 1.0 % 06/09/20 05:16 Procalcitonin 0.46 ng/mL (<0.15) 06/10/20 05:49 Urine Color Yellow (Yellow) 06/06/20 04:00 Urine Turbidity Cloudy (Clear) 06/06/20 04:00 Urine pH 5.0 (5.0-7.0) 06/06/20 04:00 Ur Specific [place] 1.012 (1.003-1.030) 06/06/20 04:00 Urine Protein 100 mg/dl mg/dL (Negative) 06/06/20 04:00 Urine Glucose (UA) 50 mg/dL (Negative) 06/06/20 04:00 Urine Ketones Neg mg/dL (Negative) 06/06/20 04:00 Urine Blood Sm (Negative) 06/06/20 04:00 Urine Nitrite Neg (Negative) 06/06/20 04:00 Urine Bilirubin Neg (Negative) 06/06/20 04:00 Urine Urobilinogen < 2.0 mg/dL (<2.0) 06/06/20 04:00 Ur Leukocyte Esterase Neg (Negative) 06/06/20 04:00 Urine WBC (Auto) 15.0 /HPF (0.0-6.0) H 06/06/20 04:00 Urine RBC (Auto) 23.0 /HPF (0.0-6.0) 06/06/20 04:00 U Epithel Cells (Auto) 8.0 /HPF (0-13.0) 06/06/20 04:00 Urine Bacteria (Auto) 2+ /HPF (Negative) 06/06/20 04:00 Amorphous Crystals 1+ 06/06/20 04:00 Hyaline Casts 16 /LPF 06/06/20 04:00 Urine Mucus 2+ /HPF 06/06/20 04:00 Urine Yeast (Budding) 2+ /HPF 06/03/20 Unknown Urine Creatinine 82.2 mg/dL (0.1-20.0) H 06/06/20 04:00 Urine Sodium 20 mmol/L 06/06/20 04:00 Urine Total Protein 196 mg/dL (5-11.8) H 06/06/20 04:00 Coronavirus (PCR) Positive (Negative) A 05/28/20 Unknown - Diagnostic Impressions Diagnostic Impressions: Echocardiogram Limited Views 05/29/20 13:52 Transthoracic Echocardiogram Indication: Pulm Embolus BP: 169/76 HR: 85 Conclusions *Limited study for RV size post cardiopulmonar arrest. *RV is only slightly dilated, no significant difference from prior echo 05/13/2020. *Global left ventricular systolic function is at the lower limits of normal. *The estimated ejection fraction is 45-50%. *Mild to moderate concentric left ventricular hypertrophy is observed. *The left and right atria are both mild to moderately dilated. Findings Left Ventricle: The left ventricular chamber size is mildly dilated. Mild to moderate concentric left ventricular hypertrophy is observed. Global left ventricular systolic function is at the lower limits of normal. The estimated ejection fraction is 45-50%. Left Atrium: The left atrium is mild to moderately dilated. Right Ventricle: The right ventricle is slightly dilated. Right Atrium: The right atrium is mild to moderately dilated. Aortic Valve: The aortic valve leaflets are moderately thickened. Mitral Valve: There is mitral annular calcification. The mitral valve leaflets are moderately thickened. Tricuspid Valve: The tricuspid valve leaflets are mildly thickened. Pericardium: A trivial pericardial effusion is visualized. NDUM: 05/29/20 1808 Amended Report Transthoracic Echocardiogram Indication: Pulm Embolus BP: 169/76 HR: 85 Conclusions *Limited study for RV size post cardiopulmonary arrest. *RV is only slightly dilated, no significant difference from prior echo 05/13/2020. *Global left ventricular systolic function is at the lower limits of normal. *The estimated ejection fraction is 45-50%. *Mild to moderate concentric left ventricular hypertrophy is observed. *The left and right atria are both mild to moderately dilated. Findings Left Ventricle: The left ventricular chamber size is mildly dilated. Mild to moderate concentric left ventricular hypertrophy is observed. Global left ventricular systolic function is at the lower limits of normal. The estimated ejection fraction is 45-50%. Left Atrium: The left atrium is mild to moderately dilated. Right Ventricle: The right ventricle is slightly dilated. Right Atrium: The right atrium is mild to moderately dilated. Aortic Valve: The aortic valve leaflets are moderately thickened. Mitral Valve: There is mitral annular calcification. The mitral valve leaflets are moderately thickened. Tricuspid Valve: The tricuspid valve leaflets are mildly thickened. Pericardium: A trivial pericardial effusion is visualized. Helm/IV: Voiding Method External Female Catheter IV Catheter Type [Right Hand] Peripheral IV IV Catheter Type [Right Wrist] Not found on patient IV Catheter Type [Left Hand] INT / Saline Lock IV Catheter Type [Left INT / Saline Lock Antecubital] IV Catheter Type [Right Peripheral IV Forearm] IV Catheter Type [Left Leg] Intra-osseous Active Medications - Current Medications Current Medications: Generic Name Dose Route Start Last Admin Trade Name Freq PRN Reason Stop Dose Admin Acetaminophen 650 mg 06/09/20 10:57 06/09/20 20:28 Tylenol FEEDTUBE 650 mg Q6H PRN Administration Fever >101 Amlodipine Besylate 10 mg 06/02/20 11:00 06/21/20 10:04 Amlodipine PO 10 mg DAILY NELSON Administration Lipase/Protease/Amylase 1 each 05/29/20 13:[address] 10,500 Unit FEEDTUBE PRN PRN For Clogged Feeding Tube Apixaban 5 mg 06/19/20 22:00 06/21/20 10:04 Eliquis PO 06/26/20 10:01 5 mg Q12HR NELSON Administration Protocol Carvedilol 12.5 mg 06/03/20 10:00 06/21/20 10:04 Coreg PO 12.5 mg BID NELSON Administration Clonidine HCl 0.2 mg 06/04/20 06:00 06/21/20 13:09 Catapres PO 0.2 mg Q8HR NELSON Administration Glycopyrrolate 2 mg 06/09/20 14:00 06/21/20 13:09 Glycopyrrolate PO 2 mg TID NELSON Administration Hydralazine HCl 50 mg 06/03/20 09:00 06/21/20 13:09 Apresoline PO 50 mg Q8HR NELSON Administration Hydrophilic Ointment 1 applic 05/28/20 13:49 Vaseline Lip Therapy TP Q2HR PRN Dry Lips Insulin Glargine 10 units 06/08/20 22:00 06/20/20 21:34 Lantus SUB-Q 10 units QHS NELSON Administration Insulin Human Lispro 0 unit 05/29/20 18:00 06/21/20 17:24 Humalog SUB-Q 3 unit Q6H NELSON Administration Protocol Labetalol HCl 20 mg 06/03/20 09:00 06/08/20 23:51 Labetalol IV 20 mg Q4H PRN Administration HYPERTENSION Lansoprazole 30 mg 06/05/20 22:00 06/21/20 10:04 Prevacid Solutab FEEDTUBE 30 mg BID NELSON Administration Levetiracetam 500 mg 06/16/20 11:00 06/21/20 10:04 Keppra PO 500 mg BID NELSON Administration Metoclopramide HCl 10 mg 06/10/20 20:00 06/21/20 13:14 Reglan IV 10 mg Q6H NELSON Administration Multi-Ingred Cream/Lotion/Oil/Oint 1 applic 05/28/20 13:49 Artificial Tears Ophth Oint OU Q4HR PRN Dry Eye(s) Ondansetron HCl 4 mg 06/02/20 09:00 06/09/20 16:48 Zofran IV 4 mg Q8H PRN Administration Nausea And Vomiting Scopolamine 1 each 06/05/20 14:00 06/20/20 09:46 Transderm-Scop TD 1 each Q3D NELSON Administration Senna 17.6 mg 06/03/20 10:00 06/21/20 10:05 Senokot FEEDTUBE 17.6 mg BID NELSON Administration Simple Syrup 15 ml 05/29/20 13:39 Simple Syrup FEEDTUBE PRN PRN Hypoglycemia Simple Syrup 30 ml 05/29/20 13:39 Simple Syrup FEEDTUBE PRN PRN Hypoglycemia Sodium Bicarbonate 325 mg 05/29/20 13:39 Sodium Bicarbonate FEEDTUBE PRN PRN For Clogged Feeding Tube Sodium Bicarbonate 650 mg 06/06/20 10:00 06/21/20 10:04 Sodium Bicarbonate PO 650 mg BID NELSON Administration Sodium Chloride 10 ml 05/28/20 22:00 06/21/20 10:06 Sodium Chloride Flush Syringe 10 Ml IV 10 ml BID NELSON Administration Sodium Chloride 10 ml 05/28/20 19:08 06/16/20 17:50 Sodium Chloride Flush Syringe 10 Ml IV 10 ml PRN PRN Administration LINE FLUSH Nutrition/Malnutrition Assess - Dietary Evaluation Nutrition/Malnutrition Findings: Nutrition Notes Start: 05/29/20 11:45 Freq: Status: Active Protocol: Document 06/18/20 10:19 LP (Rec: 06/18/20 10:27 LP [id number]) Nutrition Notes Initial or Follow up Reassessment Current Diagnosis Acute Kidney Injury,Diabetes, Heart Failure,Respiratory Failure Other Pertinent Diagnosis COVID-19 (+) Current Diet Nepro at 40ml/hr Labs/Tests Reviewed Pertinent Medications Reviewed Height 5 ft 6 in Weight 123 kg [place] Body Weight (kg) 59.09 BMI 43.7 Subjective/Other Information Pt tolerating TF at goal rate. NEUROPSYCHIATRIST recs NPO Percent of energy/protein needs met: 100%/86% Burn Absent Trauma Absent GI Symptoms Other Current % PO Negligible Minimum of two criteria No physical signs of malnutrition #1 Nutrition Diagnosis Inadequate oral intake Diagnosis Progress(for reassessment Continues documentation) Is patient on ventilator? No Is Patient Ambulatory and/or Out of Bed No REE-([facility]-confined to bed) 2172.576 Kcal/Kg value to use for calculation 13 Approximate Energy Requirements Using 1599 kcal/Kg Calculation Used for Recommendations Kcal/kg Additional Notes Protein needs are 91-109g (1-1 .2g/kg 91kg adjusted wt) Fluid needs 1ml/kcal Nutrition Intervention Change Diet Order: TF Nutrition Support: Continue Nepro at 40ml/hr 200ml q4h per MD Kcal 1,728 Protein (gm) 78 Fluid (mL) 698 Goal #1 TF tolerance Goal #2 TF to meet at least 75% energy and pro needs Anticipated Discharge Needs: Unable to determine at this becky Follow-Up By: 06/23/20 Additional Comments Follow for stable TF
[2020-06-21] MEDS: INSULIN GLARGINE 100 UNITS/ML SUB-Q SCH (21:30)
[2020-06-22] MEDS: INSULIN LISPRO 100 UNIT/ML VIAL 3 mL SUB-Q SCH ×5 (00:47→23:50)
[2020-06-22] MEDS: cloNIDine 0.2 MG TAB PO SCH ×3 (05:30→21:33)
[2020-06-22] MEDS: hydrALAZINE 25 MG TAB PO SCH ×3 (05:30→21:34)
[2020-06-22] MEDS: METOCLOPRAMIDE 10 MG/2 ML INJ IV SCH ×4 (05:38→23:50)
--- NOTE | 2020-06-22 10:17 | Progress Note ---
Assessment and Plan - Patient Problems (1) Acute kidney injury (AVANI) with acute tubular necrosis (ATN) Current Visit: Yes Status: Acute Plan to address problem: Kidney function has been improving. Patient is nonoliguric. No labs today. Follow-up electrolytes and renal function (2) Hypernatremia Current Visit: Yes Status: Acute Plan to address problem: Lasx on hold. Sodium has improved to normal. Continue free water intake and follow up Sodium (3) Acute hypoxemic respiratory failure Current Visit: Yes Status: Acute Plan to address problem: Being managed by pulmonary. S/p Extubation 06/12. Remains stable. Discharge planning by primary attending (4) Cardiac arrest Current Visit: Yes Status: Acute (5) Metabolic encephalopathy Current Visit: Yes Status: Acute Plan to address problem: Mental status is improving (6) Pneumonia due to COVID-19 virus Current Visit: Yes Status: Acute Plan to address problem: Patient has completed 5 days of Remdesevir. Completed course of steroids. Kavitha ent is improving (7) Cardiomyopathy Current Visit: No Status: Acute Qualifiers: Cardiomyopathy type: unspecified Qualified Code(s): I42.9 - Cardiomyopathy, unspecified Plan to address problem: OLasix has been stopped Patient is stable (8) Hyperglycemia due to type 2 diabetes mellitus Current Visit: No Status: Acute Qualifiers: Diabetes mellitus continuous churn buttermaker insulin use: without continuous churn buttermaker use Qualified Code(s): E11.65 - Type 2 diabetes mellitus with hyperglycemia Plan to address problem: Blood sugar management by primary attending Subjective Date of service: 06/22/20 Principal diagnosis: Ac hypoxemic resp failure; COVID-19; pneumonia; CHF; Pulm HTN; OHS; DM II Interval history: Patient was not examined today due to PPE conservation given the Covid 19 pandemic. Chart reviewed Objective - Exam Narrative Exam: .Patient was not examined today due to PpE conservation and to decrease exposure of Neophrologist during the COVID-19 pandemic - Vital Signs Vital signs: Vital Signs - 12hr 06/22/20 06/22/20 06/22/20 00:00 04:50 09:17 Temperature 99.2 F Pulse Rate 85 84 Respiratory 23 23 Rate Blood Pressure 160/64 O2 Sat by Pulse 92 97 100 Oximetry - Lab 06/15/20 04:24 06/18/20 04:42 Most recent lab results ABG pH 7.393 pH Units (7.350-7.450) 06/20/20 16:35 ABG pCO2 48.2 mm Hg 06/20/20 16:35 ABG pO2 59.6 mm Hg (80.0-90.0) L 06/20/20 16:35 ABG HCO3 28.7 mmol/L (20.0-26.0) H 06/20/20 16:35 ABG O2 Saturation 93.5 % (95.0-99.0) L 06/20/20 16:35 Calcium 9.3 mg/dL (8.4-10.2) 06/18/20 04:42 Urine Creatinine 82.2 mg/dL (0.1-20.0) H 06/06/20 04:00 Urine Sodium 20 mmol/L 06/06/20 04:00 Urine Total Protein 196 mg/dL (5-11.8) H 06/06/20 04:00 Medications & Allergies - Medications Allergies/Adverse Reactions: Allergies No Known Allergies Allergy (Verified 01/21/20 12:28) Home Medications: Home Medications Medication Instructions Recorded Confirmed Last Taken Type AtorvaSTATin [Lipitor] 20 mg PO QHS 05/12/20 05/29/20 Unknown History lisinopriL [Zestril TAB] 40 mg PO QDAY 05/12/20 05/29/20 Unknown History metFORMIN [Glucophage] 850 mg PO BID 05/12/20 05/29/20 Unknown History Acetaminophen [Acetaminophen TAB] 650 mg PO Q4H PRN tablet 05/13/20 05/29/20 Unknown Rx Dicyclomine [Bentyl] 20 mg PO BID #20 tablet 05/13/20 05/29/20 Unknown Rx Famotidine [Pepcid] 20 mg PO BID #30 tablet 05/13/20 05/29/20 Unknown Rx carvediloL [Coreg] 6.25 mg PO BID #60 05/13/20 05/29/20 Unknown Rx Active Medications: Generic Name Dose Route Start Last Admin Trade Name Freq PRN Reason Stop Dose Admin Acetaminophen 650 mg 06/09/20 10:57 06/09/20 20:28 Tylenol FEEDTUBE 650 mg Q6H PRN Administration Fever >101 Amlodipine Besylate 10 mg 06/02/20 11:00 06/21/20 10:04 Amlodipine PO 10 mg DAILY NELSON Administration Lipase/Protease/Amylase 1 each 05/29/20 13:[address] 10,500 Unit FEEDTUBE PRN PRN For Clogged Feeding Tube Apixaban 5 mg 06/19/20 22:00 06/21/20 21:28 Eliquis PO 06/26/20 10:01 5 mg Q12HR NELSON Administration Protocol Carvedilol 12.5 mg 06/03/20 10:00 06/21/20 21:29 Coreg PO 12.5 mg BID NELSON Administration Clonidine HCl 0.2 mg 06/04/20 06:00 06/22/20 05:30 Catapres PO 0.2 mg Q8HR NELSON Administration Glycopyrrolate 2 mg 06/09/20 14:00 06/21/20 21:29 Glycopyrrolate PO 2 mg TID NELSON Administration Hydralazine HCl 50 mg 06/03/20 09:00 06/22/20 05:30 Apresoline PO 50 mg Q8HR NELSON Administration Hydrophilic Ointment 1 applic 05/28/20 13:49 Vaseline Lip Therapy TP Q2HR PRN Dry Lips Insulin Glargine 10 units 06/08/20 22:00 06/21/20 21:30 Lantus SUB-Q 10 units QHS NELSON Administration Insulin Human Lispro 0 unit 05/29/20 18:00 06/22/20 05:37 Humalog SUB-Q 3 unit Q6H NELSON Administration Protocol Labetalol HCl 20 mg 06/03/20 09:00 06/08/20 23:51 Labetalol IV 20 mg Q4H PRN Administration HYPERTENSION Lansoprazole 30 mg 06/05/20 22:00 06/21/20 21:29 Prevacid Solutab FEEDTUBE 30 mg BID NELSON Administration Levetiracetam 500 mg 06/16/20 11:00 06/21/20 21:29 Keppra PO 500 mg BID NELSON Administration Metoclopramide HCl 10 mg 06/10/20 20:00 06/22/20 05:38 Reglan IV 10 mg Q6H NELSON Administration Multi-Ingred Cream/Lotion/Oil/Oint 1 applic 05/28/20 13:49 Artificial Tears Ophth Oint OU Q4HR PRN Dry Eye(s) Ondansetron HCl 4 mg 06/02/20 09:00 06/09/20 16:48 Zofran IV 4 mg Q8H PRN Administration Nausea And Vomiting Scopolamine 1 each 06/05/20 14:00 06/20/20 09:46 Transderm-Scop TD 1 each Q3D NELSON Administration Senna 17.6 mg 06/03/20 10:00 06/21/20 21:30 Senokot FEEDTUBE 17.6 mg BID NELSON Administration Simple Syrup 15 ml 05/29/20 13:39 Simple Syrup FEEDTUBE PRN PRN Hypoglycemia Simple Syrup 30 ml 05/29/20 13:39 Simple Syrup FEEDTUBE PRN PRN Hypoglycemia Sodium Bicarbonate 325 mg 05/29/20 13:39 Sodium Bicarbonate FEEDTUBE PRN PRN For Clogged Feeding Tube Sodium Bicarbonate 650 mg 06/06/20 10:00 06/21/20 21:31 Sodium Bicarbonate PO 650 mg BID NELSON Administration Sodium Chloride 10 ml 05/28/20 22:00 06/21/20 21:31 Sodium Chloride Flush Syringe 10 Ml IV 10 ml BID NELSON Administration Sodium Chloride 10 ml 05/28/20 19:08 06/16/20 17:50 Sodium Chloride Flush Syringe 10 Ml IV 10 ml PRN PRN Administration LINE FLUSH
[2020-06-22] MEDS: amLODIPine 10 MG TAB PO SCH (10:46)
[2020-06-22] MEDS: SODIUM BICARBONATE 650 MG TAB PO SCH ×2 (10:46→21:33)
[2020-06-22] MEDS: GLYCOPYRROLATE 2 MG TAB PO SCH ×3 (10:46→21:34)
[2020-06-22] MEDS: APIXABAN 5 MG TAB PO SCH ×2 (10:47→21:34)
[2020-06-22] MEDS: carvediloL 12.5 MG TAB PO SCH ×2 (10:47→21:34)
[2020-06-22] MEDS: LANSOPRAZOLE 30 MG SOLUTAB FEEDTUBE SCH ×2 (10:47→21:33)
[2020-06-22] MEDS: levETIRAcetam 500 MG/5 ML ORAL LIQD PO SCH ×2 (10:47→21:33)
[2020-06-22] MEDS: SENNOSIDES ORAL LIQD 8.8 MG/5 ML ORAL LIQD FEEDTUBE SCH ×2 (10:47→21:35)
[2020-06-22] MEDS: ACETAMINOPHEN 325 MG/10.15 ML ORAL LIQD UNIT DOSE FEEDTUBE PRN (11:58)
--- NOTE | 2020-06-22 12:05 | Progress Note ---
Assessment and Plan Acute hypoxemic respiratory failure on MVS Coronavirus-19 infection. Bilateral pulmonary infiltrates, bilateral pneumonia plus likely element of Pulmonary edema. Bilateral pulmonary edema. Bilateral pleural effusions. VTE (Upper extremity DVT) History of congestive heart failure. Morbid obesity. History of pulmonary hypertension. History of hypertension. Diabetes. Obesity hypoventilation syndrome. Elevated serum inflammatory markers to include D-dimers and LDH levels. Hyperkalemia at presentation. Metabolic acidosis. Oropharyngeal dysphagia. - get stat ABG and address - repeat CXR in am re: ? aspiration - RN asked to please perform good oral care - continue full anticoagulation with Eliquis - continue fall precautions - continue BIPAP scheduled qhs with prn daytime use - continue care as below otherwise; - advance diet per [employer] team - continue Robinul and scopolamine for secretions control - continue COVID-19 isolation per protocol - strict I's and O's - continue to wean supplemental oxygen for target O2 sat's > 90% acutely - continue aspiration precautions - continue lung protective strategies - continue bronchodilators with pulmonary hygiene per RT - wean per pulmonary driven protocols otherwise - continue accuchecks with glycemic control per SSI for target BG <180 mg/dL; avoid hypoglycemia - continue to avoid benzodiazepine's, reduce the possibility of delirium - azotemia per nephrology - continue to avoid nephrotoxins and renally dose all medications - completed AB's per ID rec's - continue Reglan for GI motility issues - prn analgesia per pain score - Maintenance of sleep-wake cycle, avoid delirium - continue enteral nutritional support at goal rate as tolerated - G.I. & VTE prophylaxis - PT/OT/ROM exercises - continue mobility protocols for pressure ulcer prophylaxis - Monitor hemodynamics closely - continue other care per attending / other consultants - discharge planning ongoing concurrently .... Re-evaluate in am & prn Subjective Date of service: 06/22/20 Principal diagnosis: Ac hypoxemic resp failure; COVID-19; pneumonia; CHF; Pulm HTN; OHS; DM II Interval history: Patient is seen today for: Ac hypoxemic resp failure; Coronavirus-19 infection; pneumonia; Pulmonary edema; Bilateral pleural effusions; CHF; Morbid obesity; pulmonary hypertension; OHS; DM II Seen and examined at bedside; 24hour events reviewed; nursing and respiratory care staff consulted; no adverse overnight events reported to me; resting peacefully in bed; oxygenation requirements increased and now on 100% FiO2 via HFNC albeit at 10 Liter flow; no reported emesis or overt aspiration but increased bilateral rales on auscultation Objective Vital Signs - 12hr 06/22/20 06/22/20 06/22/20 04:50 09:17 09:18 Temperature 99.2 F 100.2 F H Pulse Rate 84 Respiratory 23 Rate Blood Pressure 160/64 224/72 O2 Sat by Pulse 97 100 Oximetry 06/22/20 06/22/20 06/22/20 09:21 10:46 10:47 Temperature Pulse Rate 92 H 92 H Respiratory Rate Blood Pressure 156/53 224/72 224/72 O2 Sat by Pulse Oximetry Constitutional: appears uncomfortable, other (elderly looking obese female on HFNC with mildly increased respiratory effort at rest) Eyes: non-icteric ENT: oropharynx dry, other (extubated) Neck: supple, no lymphadenopathy, no JVD, other (large neck circumference) Effort: mildly labored Ascultation: Bilateral: diminished breath sounds, rales Percussion: Bilateral: not dull Cardiovascular: regular rate and rhythm, other (S1,S2) Gastrointestinal: normoactive bowel sounds, soft, non-tender, non-distended Integumentary: normal Extremities: no cyanosis, no edema, pink and warm, pulses normal, no ischemia or petechiae Neurologic: non-focal exam (grossly), pupils equal and round, other (lethargic) Psychiatric: other (unable to assess re: AMS) CBC and BMP: 06/15/20 04:24 06/18/20 04:42 ABG, PT/INR, D-dimer: ABG ABG pH 7.393 pH Units (7.350-7.450) 06/20/20 16:35 POC ABG pCO2 37.4 mmHg (32.0-48.0) 06/11/20 11:11 ABG pCO2 48.2 mm Hg 06/20/20 16:35 POC ABG pO2 101.9 mmHg (83-108) 06/11/20 11:11 ABG pO2 59.6 mm Hg (80.0-90.0) L 06/20/20 16:35 ABG O2 Saturation 93.5 % (95.0-99.0) L 06/20/20 16:35 PT/INR, D-dimer PT 14.2 Sec. (12.2-14.9) 05/29/20 15:10 INR 1.08 (0.87-1.13) 05/29/20 15:10 D-Dimer 414.52 ng/mlDDU (0-234) H 06/04/20 04:19 Abnormal lab findings: Abnormal Labs 05/28/20 05/28/20 05/28/20 13:29 13:47 13:47 WBC RBC Hgb Hct RDW 15.3 H Lymph % (Auto) [place] % (Auto) Eos % (Auto) Lymph # [place] # Seg Neutrophils % Seg Neuts % (Manual) Lymphocytes % (Manual) Seg Neutrophils # Seg Neutrophils # Man Lymphocytes # (Manual) Monocytes # (Manual) D-Dimer Heparin Anti-Xa Level ABG pH ABG pO2 ABG HCO3 ABG O2 Saturation ABG Base Excess ABG Hemoglobin VBG pH Oxyhemoglobin Sodium Potassium 6.6 H* Chloride 109.2 H Carbon Dioxide 17 L BUN 29 H Creatinine 1.3 H Glucose 265 H POC Glucose 248 H Lactic Acid Calcium 8.1 L AST 63 H Alkaline Phosphatase Lactate Dehydrogenase Total Creatine Kinase 301 H CK-MB (CK-2) 4.3 H C-Reactive Protein Total Protein 5.4 L Albumin 2.6 L Urine WBC (Auto) Urine Creatinine Urine Total Protein Coronavirus (PCR) 05/28/20 05/28/20 05/28/20 13:47 13:47 14:46 WBC RBC Hgb Hct RDW Lymph % (Auto) [place] % (Auto) Eos % (Auto) Lymph # [place] # Seg Neutrophils % Seg Neuts % (Manual) Lymphocytes % (Manual) Seg Neutrophils # Seg Neutrophils # Man Lymphocytes # (Manual) Monocytes # (Manual) D-Dimer Heparin Anti-Xa Level ABG pH ABG pO2 ABG HCO3 ABG O2 Saturation ABG Base Excess ABG Hemoglobin VBG pH 7.152 L* Oxyhemoglobin Sodium Potassium 7.2 H* Chloride Carbon Dioxide BUN Creatinine Glucose POC Glucose Lactic Acid 3.40 H* Calcium AST Alkaline Phosphatase Lactate Dehydrogenase Total Creatine Kinase CK-MB (CK-2) C-Reactive Protein Total Protein Albumin Urine WBC (Auto) Urine Creatinine Urine Total Protein Coronavirus (PCR) 05/28/20 05/28/20 05/28/20 15:33 15:33 15:51 WBC RBC Hgb Hct RDW Lymph % (Auto) [place] % (Auto) Eos % (Auto) Lymph # [place] # Seg Neutrophils % Seg Neuts % (Manual) Lymphocytes % (Manual) Seg Neutrophils # Seg Neutrophils # Man Lymphocytes # (Manual) Monocytes # (Manual) D-Dimer 8780.43 H Heparin Anti-Xa Level ABG pH 7.284 L ABG pO2 273.0 H ABG HCO3 ABG O2 Saturation 99.4 H ABG Base Excess -6.1 L ABG Hemoglobin 17.2 H VBG pH Oxyhemoglobin Sodium Potassium Chloride Carbon Dioxide BUN Creatinine Glucose 152 H POC Glucose Lactic Acid Calcium AST Alkaline Phosphatase Lactate Dehydrogenase 365 H Total Creatine Kinase CK-MB (CK-2) C-Reactive Protein Total Protein Albumin Urine WBC (Auto) Urine Creatinine Urine Total Protein Coronavirus (PCR) 05/28/20 05/28/20 05/28/20 16:30 20:41 23:20 WBC RBC Hgb Hct RDW Lymph % (Auto) [place] % (Auto) Eos % (Auto) Lymph # [place] # Seg Neutrophils % Seg Neuts % (Manual) Lymphocytes % (Manual) Seg Neutrophils # Seg Neutrophils # Man Lymphocytes # (Manual) Monocytes # (Manual) D-Dimer Heparin Anti-Xa Level ABG pH ABG pO2 ABG HCO3 ABG O2 Saturation ABG Base Excess ABG Hemoglobin VBG pH Oxyhemoglobin Sodium Potassium Chloride Carbon Dioxide BUN Creatinine Glucose POC Glucose 225 H 224 H Lactic Acid Calcium AST Alkaline Phosphatase Lactate Dehydrogenase Total Creatine Kinase CK-MB (CK-2) C-Reactive Protein Total Protein Albumin Urine WBC (Auto) 17.0 H Urine Creatinine Urine Total Protein Coronavirus (PCR) 05/28/20 05/29/20 05/29/20 Unknown 04:35 04:43 WBC RBC 3.48 L Hgb 9.8 L Hct 29.4 L RDW 16.0 H Lymph % (Auto) 7.4 L [place] % (Auto) Eos % (Auto) Lymph # 0.7 L [place] # Seg Neutrophils % 89.1 H Seg Neuts % (Manual) Lymphocytes % (Manual) Seg Neutrophils # 8.1 H Seg Neutrophils # Man Lymphocytes # (Manual) Monocytes # (Manual) D-Dimer Heparin Anti-Xa Level ABG pH ABG pO2 ABG HCO3 19.3 L ABG O2 Saturation ABG Base Excess -4.5 L ABG Hemoglobin 9.7 L VBG pH Oxyhemoglobin Sodium Potassium Chloride Carbon Dioxide BUN Creatinine Glucose POC Glucose Lactic Acid Calcium AST Alkaline Phosphatase Lactate Dehydrogenase Total Creatine Kinase CK-MB (CK-2) C-Reactive Protein Total Protein Albumin Urine WBC (Auto) Urine Creatinine Urine Total Protein Coronavirus (PCR) Positive A 05/29/20 05/29/20 05/29/20 04:43 15:10 17:17 WBC RBC Hgb 9.3 L Hct 28.7 L RDW Lymph % (Auto) [place] % (Auto) Eos % (Auto) Lymph # [place] # Seg Neutrophils % Seg Neuts % (Manual) Lymphocytes % (Manual) Seg Neutrophils # Seg Neutrophils # Man Lymphocytes # (Manual) Monocytes # (Manual) D-Dimer Heparin Anti-Xa Level ABG pH ABG pO2 ABG HCO3 ABG O2 Saturation ABG Base Excess ABG Hemoglobin VBG pH Oxyhemoglobin Sodium Potassium Chloride 110.2 H Carbon Dioxide 18 L BUN 32 H Creatinine 1.4 H Glucose 180 H POC Glucose 147 H Lactic Acid Calcium AST Alkaline Phosphatase Lactate Dehydrogenase Total Creatine Kinase CK-MB (CK-2) C-Reactive Protein Total Protein Albumin Urine WBC (Auto) Urine Creatinine Urine Total Protein Coronavirus (PCR) 05/30/20 05/30/20 05/30/20 00:08 00:12 04:15 WBC RBC Hgb Hct RDW Lymph % (Auto) [place] % (Auto) Eos % (Auto) Lymph # [place] # Seg Neutrophils % Seg Neuts % (Manual) Lymphocytes % (Manual) Seg Neutrophils # Seg Neutrophils # Man Lymphocytes # (Manual) Monocytes # (Manual) D-Dimer Heparin Anti-Xa Level 0.71 H ABG pH 7.460 H ABG pO2 106.0 H ABG HCO3 18.9 L ABG O2 Saturation ABG Base Excess -4.4 L ABG Hemoglobin 6.8 L VBG pH Oxyhemoglobin Sodium Potassium Chloride Carbon Dioxide BUN Creatinine Glucose POC Glucose 195 H Lactic Acid Calcium AST Alkaline Phosphatase Lactate Dehydrogenase Total Creatine Kinase CK-MB (CK-2) C-Reactive Protein Total Protein Albumin Urine WBC (Auto) Urine Creatinine Urine Total Protein Coronavirus (PCR) 05/30/20 05/30/20 05/30/20 06:07 08:37 12:33 WBC RBC Hgb Hct RDW Lymph % (Auto) [place] % (Auto) Eos % (Auto) Lymph # [place] # Seg Neutrophils % Seg Neuts % (Manual) Lymphocytes % (Manual) Seg Neutrophils # Seg Neutrophils # Man Lymphocytes # (Manual) Monocytes # (Manual) D-Dimer Heparin Anti-Xa Level 0.85 H ABG pH ABG pO2 ABG HCO3 ABG O2 Saturation ABG Base Excess ABG Hemoglobin VBG pH Oxyhemoglobin Sodium Potassium Chloride Carbon Dioxide BUN Creatinine Glucose POC Glucose 182 H 187 H Lactic Acid Calcium AST Alkaline Phosphatase Lactate Dehydrogenase Total Creatine Kinase CK-MB (CK-2) C-Reactive Protein Total Protein Albumin Urine WBC (Auto) Urine Creatinine Urine Total Protein Coronavirus (PCR) 05/30/20 05/30/20 05/30/20 15:58 17:57 23:36 WBC RBC Hgb Hct RDW Lymph % (Auto) [place] % (Auto) Eos % (Auto) Lymph # [place] # Seg Neutrophils % Seg Neuts % (Manual) Lymphocytes % (Manual) Seg Neutrophils # Seg Neutrophils # Man Lymphocytes # (Manual) Monocytes # (Manual) D-Dimer Heparin Anti-Xa Level 1.03 H ABG pH ABG pO2 ABG HCO3 ABG O2 Saturation ABG Base Excess ABG Hemoglobin VBG pH Oxyhemoglobin Sodium Potassium Chloride Carbon Dioxide BUN Creatinine Glucose POC Glucose 208 H 185 H Lactic Acid Calcium AST Alkaline Phosphatase Lactate Dehydrogenase Total Creatine Kinase CK-MB (CK-2) C-Reactive Protein Total Protein Albumin Urine WBC (Auto) Urine Creatinine Urine Total Protein Coronavirus (PCR) 05/31/20 05/31/20 05/31/20 02:16 03:55 06:16 WBC RBC Hgb 9.2 L Hct 27.5 L RDW Lymph % (Auto) [place] % (Auto) Eos % (Auto) Lymph # [place] # Seg Neutrophils % Seg Neuts % (Manual) Lymphocytes % (Manual) Seg Neutrophils # Seg Neutrophils # Man Lymphocytes # (Manual) Monocytes # (Manual) D-Dimer Heparin Anti-Xa Level ABG pH ABG pO2 94.7 H ABG HCO3 18.6 L ABG O2 Saturation ABG Base Excess -5.5 L ABG Hemoglobin 7.9 L VBG pH Oxyhemoglobin Sodium Potassium Chloride Carbon Dioxide BUN Creatinine Glucose POC Glucose 160 H Lactic Acid Calcium AST Alkaline Phosphatase Lactate Dehydrogenase Total Creatine Kinase CK-MB (CK-2) C-Reactive Protein Total Protein Albumin Urine WBC (Auto) Urine Creatinine Urine Total Protein Coronavirus (PCR) 05/31/20 05/31/20 05/31/20 12:20 13:03 18:13 WBC RBC Hgb Hct RDW Lymph % (Auto) [place] % (Auto) Eos % (Auto) Lymph # [place] # Seg Neutrophils % Seg Neuts % (Manual) Lymphocytes % (Manual) Seg Neutrophils # Seg Neutrophils # Man Lymphocytes # (Manual) Monocytes # (Manual) D-Dimer Heparin Anti-Xa Level ABG pH ABG pO2 ABG HCO3 ABG O2 Saturation ABG Base Excess ABG Hemoglobin VBG pH Oxyhemoglobin Sodium Potassium Chloride Carbon Dioxide 18 L BUN 48 H Creatinine 1.6 H Glucose 115 H POC Glucose 128 H 159 H Lactic Acid Calcium 8.3 L AST Alkaline Phosphatase Lactate Dehydrogenase Total Creatine Kinase CK-MB (CK-2) C-Reactive Protein Total Protein 5.4 L Albumin 2.4 L Urine WBC (Auto) Urine Creatinine Urine Total Protein Coronavirus (PCR) 05/31/20 06/01/20 06/01/20 23:51 04:00 05:48 WBC RBC Hgb Hct RDW Lymph % (Auto) [place] % (Auto) Eos % (Auto) Lymph # [place] # Seg Neutrophils % Seg Neuts % (Manual) Lymphocytes % (Manual) Seg Neutrophils # Seg Neutrophils # Man Lymphocytes # (Manual) Monocytes # (Manual) D-Dimer Heparin Anti-Xa Level ABG pH ABG pO2 109.8 H ABG HCO3 18.8 L ABG O2 Saturation ABG Base Excess -5.9 L ABG Hemoglobin 7.8 L VBG pH Oxyhemoglobin Sodium Potassium Chloride Carbon Dioxide BUN Creatinine Glucose POC Glucose 171 H 133 H Lactic Acid Calcium AST Alkaline Phosphatase Lactate Dehydrogenase Total Creatine Kinase CK-MB (CK-2) C-Reactive Protein Total Protein Albumin Urine WBC (Auto) Urine Creatinine Urine Total Protein Coronavirus (PCR) 06/01/20 06/01/20 06/02/20 12:28 17:29 00:08 WBC RBC Hgb Hct RDW Lymph % (Auto) [place] % (Auto) Eos % (Auto) Lymph # [place] # Seg Neutrophils % Seg Neuts % (Manual) Lymphocytes % (Manual) Seg Neutrophils # Seg Neutrophils # Man Lymphocytes # (Manual) Monocytes # (Manual) D-Dimer Heparin Anti-Xa Level ABG pH ABG pO2 ABG HCO3 ABG O2 Saturation ABG Base Excess ABG Hemoglobin VBG pH Oxyhemoglobin Sodium Potassium Chloride Carbon Dioxide BUN Creatinine Glucose POC Glucose 199 H 209 H 162 H Lactic Acid Calcium AST Alkaline Phosphatase Lactate Dehydrogenase Total Creatine Kinase CK-MB (CK-2) C-Reactive Protein Total Protein Albumin Urine WBC (Auto) Urine Creatinine Urine Total Protein Coronavirus (PCR) 06/02/20 06/02/20 06/02/20 04:20 04:20 04:44 WBC RBC Hgb 10.0 L Hct RDW Lymph % (Auto) [place] % (Auto) Eos % (Auto) Lymph # [place] # Seg Neutrophils % Seg Neuts % (Manual) Lymphocytes % (Manual) Seg Neutrophils # Seg Neutrophils # Man Lymphocytes # (Manual) Monocytes # (Manual) D-Dimer Heparin Anti-Xa Level 0.10 L ABG pH ABG pO2 150.6 H ABG HCO3 ABG O2 Saturation ABG Base Excess -4.1 L ABG Hemoglobin 11.8 L VBG pH Oxyhemoglobin Sodium Potassium Chloride Carbon Dioxide BUN Creatinine Glucose POC Glucose Lactic Acid Calcium AST Alkaline Phosphatase Lactate Dehydrogenase Total Creatine Kinase CK-MB (CK-2) C-Reactive Protein Total Protein Albumin Urine WBC (Auto) Urine Creatinine Urine Total Protein Coronavirus (PCR) 06/02/20 06/02/20 06/02/20 05:53 12:04 13:49 WBC RBC Hgb Hct RDW Lymph % (Auto) [place] % (Auto) Eos % (Auto) Lymph # [place] # Seg Neutrophils % Seg Neuts % (Manual) Lymphocytes % (Manual) Seg Neutrophils # Seg Neutrophils # Man Lymphocytes # (Manual) Monocytes # (Manual) D-Dimer Heparin Anti-Xa Level 0.28 L ABG pH ABG pO2 ABG HCO3 ABG O2 Saturation ABG Base Excess ABG Hemoglobin VBG pH Oxyhemoglobin Sodium Potassium Chloride Carbon Dioxide BUN Creatinine Glucose POC Glucose 149 H 220 H Lactic Acid Calcium AST Alkaline Phosphatase Lactate Dehydrogenase Total Creatine Kinase CK-MB (CK-2) C-Reactive Protein Total Protein Albumin Urine WBC (Auto) Urine Creatinine Urine Total Protein Coronavirus (PCR) 06/02/20 06/02/20 06/03/20 13:49 18:31 00:42 WBC RBC Hgb Hct RDW Lymph % (Auto) [place] % (Auto) Eos % (Auto) Lymph # [place] # Seg Neutrophils % Seg Neuts % (Manual) Lymphocytes % (Manual) Seg Neutrophils # Seg Neutrophils # Man Lymphocytes # (Manual) Monocytes # (Manual) D-Dimer 769.68 H Heparin Anti-Xa Level ABG pH ABG pO2 ABG HCO3 ABG O2 Saturation ABG Base Excess ABG Hemoglobin VBG pH Oxyhemoglobin Sodium Potassium Chloride Carbon Dioxide BUN Creatinine Glucose POC Glucose 225 H 212 H Lactic Acid Calcium AST Alkaline Phosphatase Lactate Dehydrogenase Total Creatine Kinase CK-MB (CK-2) C-Reactive Protein Total Protein Albumin Urine WBC (Auto) Urine Creatinine Urine Total Protein Coronavirus (PCR) 06/03/20 06/03/20 06/03/20 05:16 05:16 05:25 WBC 11.4 H RBC Hgb Hct RDW 16.4 H Lymph % (Auto) [place] % (Auto) Eos % (Auto) Lymph # [place] # Seg Neutrophils % Seg Neuts % (Manual) Lymphocytes % (Manual) Seg Neutrophils # Seg Neutrophils # Man Lymphocytes # (Manual) Monocytes # (Manual) D-Dimer Heparin Anti-Xa Level ABG pH ABG pO2 160.9 H ABG HCO3 19.4 L ABG O2 Saturation ABG Base Excess -4.9 L ABG Hemoglobin 7.0 L VBG pH Oxyhemoglobin Sodium Potassium Chloride Carbon Dioxide 18 L BUN 65 H Creatinine 2.0 H Glucose 175 H POC Glucose Lactic Acid Calcium 8.0 L AST Alkaline Phosphatase Lactate Dehydrogenase Total Creatine Kinase CK-MB (CK-2) C-Reactive Protein Total Protein 5.5 L Albumin 2.2 L Urine WBC (Auto) Urine Creatinine Urine Total Protein Coronavirus (PCR) 06/03/20 06/03/20 06/03/20 06:07 11:58 18:24 WBC RBC Hgb Hct RDW Lymph % (Auto) [place] % (Auto) Eos % (Auto) Lymph # [place] # Seg Neutrophils % Seg Neuts % (Manual) Lymphocytes % (Manual) Seg Neutrophils # Seg Neutrophils # Man Lymphocytes # (Manual) Monocytes # (Manual) D-Dimer Heparin Anti-Xa Level ABG pH ABG pO2 ABG HCO3 ABG O2 Saturation ABG Base Excess ABG Hemoglobin VBG pH Oxyhemoglobin Sodium Potassium Chloride Carbon Dioxide BUN Creatinine Glucose POC Glucose 177 H 163 H 211 H Lactic Acid Calcium AST Alkaline Phosphatase Lactate Dehydrogenase Total Creatine Kinase CK-MB (CK-2) C-Reactive Protein Total Protein Albumin Urine WBC (Auto) Urine Creatinine Urine Total Protein Coronavirus (PCR) 06/03/20 06/03/20 06/04/20 21:50 Unknown 00:26 WBC RBC Hgb Hct RDW Lymph % (Auto) [place] % (Auto) Eos % (Auto) Lymph # [place] # Seg Neutrophils % Seg Neuts % (Manual) Lymphocytes % (Manual) Seg Neutrophils # Seg Neutrophils # Man Lymphocytes # (Manual) Monocytes # (Manual) D-Dimer Heparin Anti-Xa Level ABG pH ABG pO2 ABG HCO3 ABG O2 Saturation ABG Base Excess ABG Hemoglobin VBG pH Oxyhemoglobin Sodium 135 L Potassium Chloride Carbon Dioxide 18 L BUN Creatinine Glucose POC Glucose 241 H Lactic Acid Calcium AST Alkaline Phosphatase Lactate Dehydrogenase Total Creatine Kinase CK-MB (CK-2) C-Reactive Protein Total Protein Albumin Urine WBC (Auto) 11.0 H Urine Creatinine Urine Total Protein Coronavirus (PCR) 06/04/20 06/04/20 06/04/20 03:35 04:19 04:19 WBC RBC 3.15 L Hgb 8.9 L Hct 26.8 L D RDW 15.9 H Lymph % (Auto) 6.0 L [place] % (Auto) Eos % (Auto) Lymph # 0.6 L [place] # Seg Neutrophils % 86.6 H Seg Neuts % (Manual) Lymphocytes % (Manual) Seg Neutrophils # 9.1 H Seg Neutrophils # Man Lymphocytes # (Manual) Monocytes # (Manual) D-Dimer Heparin Anti-Xa Level ABG pH 7.331 L ABG pO2 ABG HCO3 ABG O2 Saturation ABG Base Excess -4.7 L ABG Hemoglobin 11.0 L VBG pH Oxyhemoglobin 93.9 L Sodium 136 L Potassium Chloride Carbon Dioxide 20 L BUN 73 H Creatinine 2.0 H Glucose 192 H POC Glucose Lactic Acid Calcium 8.0 L AST Alkaline Phosphatase Lactate Dehydrogenase 271 H Total Creatine Kinase CK-MB (CK-2) C-Reactive Protein 2.20 H Total Protein 5.0 L Albumin 2.0 L Urine WBC (Auto) Urine Creatinine Urine Total Protein Coronavirus (PCR) 06/04/20 06/04/20 06/04/20 04:19 05:51 11:48 WBC RBC Hgb Hct RDW Lymph % (Auto) [place] % (Auto) Eos % (Auto) Lymph # [place] # Seg Neutrophils % Seg Neuts % (Manual) Lymphocytes % (Manual) Seg Neutrophils # Seg Neutrophils # Man Lymphocytes # (Manual) Monocytes # (Manual) D-Dimer 414.52 H Heparin Anti-Xa Level ABG pH ABG pO2 ABG HCO3 ABG O2 Saturation ABG Base Excess ABG Hemoglobin VBG pH Oxyhemoglobin Sodium Potassium Chloride Carbon Dioxide BUN Creatinine Glucose POC Glucose 179 H 213 H Lactic Acid Calcium AST Alkaline Phosphatase Lactate Dehydrogenase Total Creatine Kinase CK-MB (CK-2) C-Reactive Protein Total Protein Albumin Urine WBC (Auto) Urine Creatinine Urine Total Protein Coronavirus (PCR) 06/04/20 06/05/20 06/05/20 18:25 00:16 05:00 WBC RBC Hgb Hct RDW Lymph % (Auto) [place] % (Auto) Eos % (Auto) Lymph # [place] # Seg Neutrophils % Seg Neuts % (Manual) Lymphocytes % (Manual) Seg Neutrophils # Seg Neutrophils # Man Lymphocytes # (Manual) Monocytes # (Manual) D-Dimer Heparin Anti-Xa Level ABG pH 7.286 L ABG pO2 96.2 H ABG HCO3 ABG O2 Saturation ABG Base Excess -6.3 L ABG Hemoglobin 8.8 L VBG pH Oxyhemoglobin 94.8 L Sodium Potassium Chloride Carbon Dioxide BUN Creatinine Glucose POC Glucose 238 H 183 H Lactic Acid Calcium AST Alkaline Phosphatase Lactate Dehydrogenase Total Creatine Kinase CK-MB (CK-2) C-Reactive Protein Total Protein Albumin Urine WBC (Auto) Urine Creatinine Urine Total Protein Coronavirus (PCR) 06/05/20 06/05/20 06/05/20 05:39 07:25 07:25 WBC RBC 2.97 L Hgb 8.7 L Hct 25.7 L RDW 16.0 H Lymph % (Auto) 8.8 L [place] % (Auto) 13.3 H Eos % (Auto) Lymph # 0.8 L [place] # 1.3 H Seg Neutrophils % 77.3 H Seg Neuts % (Manual) Lymphocytes % (Manual) Seg Neutrophils # Seg Neutrophils # Man Lymphocytes # (Manual) Monocytes # (Manual) D-Dimer Heparin Anti-Xa Level ABG pH ABG pO2 ABG HCO3 ABG O2 Saturation ABG Base Excess ABG Hemoglobin VBG pH Oxyhemoglobin Sodium 133 L Potassium Chloride Carbon Dioxide 17 L BUN 89 H Creatinine 2.8 H Glucose 176 H POC Glucose 149 H Lactic Acid Calcium 7.7 L AST Alkaline Phosphatase Lactate Dehydrogenase Total Creatine Kinase CK-MB (CK-2) C-Reactive Protein Total Protein 4.2 L Albumin 1.9 L Urine WBC (Auto) Urine Creatinine Urine Total Protein Coronavirus (PCR) 06/05/20 06/05/20 06/05/20 07:25 12:05 15:41 WBC RBC Hgb Hct RDW Lymph % (Auto) [place] % (Auto) Eos % (Auto) Lymph # [place] # Seg Neutrophils % Seg Neuts % (Manual) Lymphocytes % (Manual) Seg Neutrophils # Seg Neutrophils # Man Lymphocytes # (Manual) Monocytes # (Manual) D-Dimer Heparin Anti-Xa Level 0.76 H 0.81 H ABG pH ABG pO2 ABG HCO3 ABG O2 Saturation ABG Base Excess ABG Hemoglobin VBG pH Oxyhemoglobin Sodium Potassium Chloride Carbon Dioxide BUN Creatinine Glucose POC Glucose 198 H Lactic Acid Calcium AST Alkaline Phosphatase Lactate Dehydrogenase Total Creatine Kinase CK-MB (CK-2) C-Reactive Protein Total Protein Albumin Urine WBC (Auto) Urine Creatinine Urine Total Protein Coronavirus (PCR) 06/05/20 06/05/20 06/06/20 18:08 23:25 04:00 WBC RBC Hgb Hct RDW Lymph % (Auto) [place] % (Auto) Eos % (Auto) Lymph # [place] # Seg Neutrophils % Seg Neuts % (Manual) Lymphocytes % (Manual) Seg Neutrophils # Seg Neutrophils # Man Lymphocytes # (Manual) Monocytes # (Manual) D-Dimer Heparin Anti-Xa Level ABG pH ABG pO2 ABG HCO3 ABG O2 Saturation ABG Base Excess ABG Hemoglobin VBG pH Oxyhemoglobin Sodium Potassium Chloride Carbon Dioxide BUN Creatinine Glucose POC Glucose 223 H 169 H Lactic Acid Calcium AST Alkaline Phosphatase Lactate Dehydrogenase Total Creatine Kinase CK-MB (CK-2) C-Reactive Protein Total Protein Albumin Urine WBC (Auto) 15.0 H Urine Creatinine Urine Total Protein Coronavirus (PCR) 06/06/20 06/06/20 06/06/20 04:00 05:33 05:38 WBC RBC 2.97 L Hgb 8.7 L Hct 26.8 L RDW 16.8 H Lymph % (Auto) [place] % (Auto) Eos % (Auto) Lymph # [place] # Seg Neutrophils % Seg Neuts % (Manual) Lymphocytes % (Manual) Seg Neutrophils # Seg Neutrophils # Man Lymphocytes # (Manual) Monocytes # (Manual) D-Dimer Heparin Anti-Xa Level ABG pH ABG pO2 ABG HCO3 ABG O2 Saturation ABG Base Excess ABG Hemoglobin VBG pH Oxyhemoglobin Sodium Potassium Chloride Carbon Dioxide BUN Creatinine Glucose POC Glucose 186 H Lactic Acid Calcium AST Alkaline Phosphatase Lactate Dehydrogenase Total Creatine Kinase CK-MB (CK-2) C-Reactive Protein Total Protein Albumin Urine WBC (Auto) Urine Creatinine 82.2 H Urine Total Protein 196 H Coronavirus (PCR) 06/06/20 06/06/20 06/06/20 05:38 12:25 17:03 WBC RBC Hgb Hct RDW Lymph % (Auto) [place] % (Auto) Eos % (Auto) Lymph # [place] # Seg Neutrophils % Seg Neuts % (Manual) Lymphocytes % (Manual) Seg Neutrophils # Seg Neutrophils # Man Lymphocytes # (Manual) Monocytes # (Manual) D-Dimer Heparin Anti-Xa Level ABG pH ABG pO2 ABG HCO3 ABG O2 Saturation ABG Base Excess ABG Hemoglobin VBG pH Oxyhemoglobin Sodium 134 L Potassium 5.2 H Chloride Carbon Dioxide 18 L BUN 97 H Creatinine 2.5 H Glucose 193 H POC Glucose 239 H 252 H Lactic Acid Calcium 7.5 L AST Alkaline Phosphatase Lactate Dehydrogenase Total Creatine Kinase CK-MB (CK-2) C-Reactive Protein Total Protein 4.1 L Albumin 1.9 L Urine WBC (Auto) Urine Creatinine Urine Total Protein Coronavirus (PCR) 06/07/20 06/07/20 06/07/20 00:16 01:49 04:00 WBC RBC 2.91 L Hgb 8.4 L Hct 25.0 L RDW 16.1 H Lymph % (Auto) 5.7 L [place] % (Auto) 10.5 H Eos % (Auto) Lymph # 0.6 L [place] # 1.1 H Seg Neutrophils % 83.6 H Seg Neuts % (Manual) Lymphocytes % (Manual) Seg Neutrophils # 9.1 H Seg Neutrophils # Man Lymphocytes # (Manual) Monocytes # (Manual) D-Dimer Heparin Anti-Xa Level 0.26 L ABG pH ABG pO2 ABG HCO3 ABG O2 Saturation ABG Base Excess ABG Hemoglobin VBG pH Oxyhemoglobin Sodium Potassium Chloride Carbon Dioxide BUN Creatinine Glucose POC Glucose 173 H Lactic Acid Calcium AST Alkaline Phosphatase Lactate Dehydrogenase Total Creatine Kinase CK-MB (CK-2) C-Reactive Protein Total Protein Albumin Urine WBC (Auto) Urine Creatinine Urine Total Protein Coronavirus (PCR) 06/07/20 06/07/20 06/07/20 04:00 04:54 05:51 WBC RBC Hgb Hct RDW Lymph % (Auto) [place] % (Auto) Eos % (Auto) Lymph # [place] # Seg Neutrophils % Seg Neuts % (Manual) Lymphocytes % (Manual) Seg Neutrophils # Seg Neutrophils # Man Lymphocytes # (Manual) Monocytes # (Manual) D-Dimer Heparin Anti-Xa Level ABG pH 7.317 L ABG pO2 71.4 L ABG HCO3 ABG O2 Saturation 94.3 L ABG Base Excess -4.8 L ABG Hemoglobin 7.1 L VBG pH Oxyhemoglobin 92.2 L Sodium 133 L Potassium Chloride Carbon Dioxide 18 L BUN 100 H Creatinine 2.5 H Glucose 158 H POC Glucose 168 H Lactic Acid Calcium 7.6 L AST Alkaline Phosphatase Lactate Dehydrogenase Total Creatine Kinase CK-MB (CK-2) C-Reactive Protein Total Protein 4.7 L Albumin 2.0 L Urine WBC (Auto) Urine Creatinine Urine Total Protein Coronavirus (PCR) 06/07/20 06/07/20 06/07/20 12:03 17:17 20:10 WBC RBC Hgb Hct RDW Lymph % (Auto) [place] % (Auto) Eos % (Auto) Lymph # [place] # Seg Neutrophils % Seg Neuts % (Manual) Lymphocytes % (Manual) Seg Neutrophils # Seg Neutrophils # Man Lymphocytes # (Manual) Monocytes # (Manual) D-Dimer Heparin Anti-Xa Level 0.17 L ABG pH ABG pO2 ABG HCO3 ABG O2 Saturation ABG Base Excess ABG Hemoglobin VBG pH Oxyhemoglobin Sodium Potassium Chloride Carbon Dioxide BUN Creatinine Glucose POC Glucose 276 H 281 H Lactic Acid Calcium AST Alkaline Phosphatase Lactate Dehydrogenase Total Creatine Kinase CK-MB (CK-2) C-Reactive Protein Total Protein Albumin Urine WBC (Auto) Urine Creatinine Urine Total Protein Coronavirus (PCR) 06/08/20 06/08/20 06/08/20 00:02 04:47 04:47 WBC 16.4 H RBC 3.07 L Hgb 8.6 L Hct 26.5 L RDW 16.3 H Lymph % (Auto) [place] % (Auto) Eos % (Auto) Lymph # [place] # Seg Neutrophils % Seg Neuts % (Manual) 90.0 H Lymphocytes % (Manual) 3.0 L Seg Neutrophils # Seg Neutrophils # Man 14.8 H Lymphocytes # (Manual) 0.5 L Monocytes # (Manual) 1.1 H D-Dimer Heparin Anti-Xa Level ABG pH ABG pO2 ABG HCO3 ABG O2 Saturation ABG Base Excess ABG Hemoglobin VBG pH Oxyhemoglobin Sodium 129 L Potassium Chloride 95.6 L Carbon Dioxide 17 L BUN 106 H Creatinine 2.5 H Glucose 213 H POC Glucose 242 H Lactic Acid Calcium 7.6 L AST Alkaline Phosphatase Lactate Dehydrogenase Total Creatine Kinase CK-MB (CK-2) C-Reactive Protein Total Protein 5.0 L Albumin 2.1 L Urine WBC (Auto) Urine Creatinine Urine Total Protein Coronavirus (PCR) 06/08/20 06/08/20 06/08/20 05:40 11:55 17:54 WBC RBC Hgb Hct RDW Lymph % (Auto) [place] % (Auto) Eos % (Auto) Lymph # [place] # Seg Neutrophils % Seg Neuts % (Manual) Lymphocytes % (Manual) Seg Neutrophils # Seg Neutrophils # Man Lymphocytes # (Manual) Monocytes # (Manual) D-Dimer Heparin Anti-Xa Level ABG pH ABG pO2 ABG HCO3 ABG O2 Saturation ABG Base Excess ABG Hemoglobin VBG pH Oxyhemoglobin Sodium Potassium Chloride Carbon Dioxide BUN Creatinine Glucose POC Glucose 221 H 218 H 163 H Lactic Acid Calcium AST Alkaline Phosphatase Lactate Dehydrogenase Total Creatine Kinase CK-MB (CK-2) C-Reactive Protein Total Protein Albumin Urine WBC (Auto) Urine Creatinine Urine Total Protein Coronavirus (PCR) 06/08/20 06/09/20 06/09/20 22:01 00:09 05:16 WBC 19.0 H RBC 3.35 L Hgb 9.2 L Hct 28.5 L RDW 16.3 H Lymph % (Auto) [place] % (Auto) Eos % (Auto) Lymph # [place] # Seg Neutrophils % Seg Neuts % (Manual) 85.0 H Lymphocytes % (Manual) 7.0 L Seg Neutrophils # Seg Neutrophils # Man 16.2 H Lymphocytes # (Manual) Monocytes # (Manual) 1.3 H D-Dimer Heparin Anti-Xa Level ABG pH ABG pO2 ABG HCO3 ABG O2 Saturation ABG Base Excess ABG Hemoglobin VBG pH Oxyhemoglobin Sodium Potassium Chloride Carbon Dioxide BUN Creatinine Glucose POC Glucose 182 H 150 H Lactic Acid Calcium AST Alkaline Phosphatase Lactate Dehydrogenase Total Creatine Kinase CK-MB (CK-2) C-Reactive Protein Total Protein Albumin Urine WBC (Auto) Urine Creatinine Urine Total Protein Coronavirus (PCR) 06/09/20 06/09/20 06/09/20 05:16 05:24 11:29 WBC RBC Hgb Hct RDW Lymph % (Auto) [place] % (Auto) Eos % (Auto) Lymph # [place] # Seg Neutrophils % Seg Neuts % (Manual) Lymphocytes % (Manual) Seg Neutrophils # Seg Neutrophils # Man Lymphocytes # (Manual) Monocytes # (Manual) D-Dimer Heparin Anti-Xa Level ABG pH ABG pO2 ABG HCO3 ABG O2 Saturation ABG Base Excess ABG Hemoglobin VBG pH Oxyhemoglobin Sodium 133 L Potassium Chloride Carbon Dioxide 19 L BUN 109 H Creatinine 2.1 H Glucose 133 H POC Glucose 128 H 119 H Lactic Acid Calcium 7.7 L AST Alkaline Phosphatase < 5 L Lactate Dehydrogenase Total Creatine Kinase CK-MB (CK-2) C-Reactive Protein Total Protein 4.6 L Albumin < 0.2 L Urine WBC (Auto) Urine Creatinine Urine Total Protein Coronavirus (PCR) 06/09/20 06/10/20 06/10/20 17:32 00:00 05:49 WBC RBC Hgb Hct RDW Lymph % (Auto) [place] % (Auto) Eos % (Auto) Lymph # [place] # Seg Neutrophils % Seg Neuts % (Manual) Lymphocytes % (Manual) Seg Neutrophils # Seg Neutrophils # Man Lymphocytes # (Manual) Monocytes # (Manual) D-Dimer Heparin Anti-Xa Level 0.19 L ABG pH ABG pO2 ABG HCO3 ABG O2 Saturation ABG Base Excess ABG Hemoglobin VBG pH Oxyhemoglobin Sodium Potassium Chloride Carbon Dioxide BUN Creatinine Glucose POC Glucose 106 H 117 H Lactic Acid Calcium AST Alkaline Phosphatase Lactate Dehydrogenase Total Creatine Kinase CK-MB (CK-2) C-Reactive Protein Total Protein Albumin Urine WBC (Auto) Urine Creatinine Urine Total Protein Coronavirus (PCR) 06/10/20 06/10/20 06/10/20 05:54 07:40 11:40 WBC RBC Hgb Hct RDW Lymph % (Auto) [place] % (Auto) Eos % (Auto) Lymph # [place] # Seg Neutrophils % Seg Neuts % (Manual) Lymphocytes % (Manual) Seg Neutrophils # Seg Neutrophils # Man Lymphocytes # (Manual) Monocytes # (Manual) D-Dimer Heparin Anti-Xa Level ABG pH ABG pO2 ABG HCO3 ABG O2 Saturation ABG Base Excess ABG Hemoglobin VBG pH Oxyhemoglobin Sodium 146 H D Potassium Chloride Carbon Dioxide 20 L BUN 99 H Creatinine 1.9 H Glucose 121 H POC Glucose 127 H 138 H Lactic Acid Calcium 8.2 L AST Alkaline Phosphatase Lactate Dehydrogenase Total Creatine Kinase CK-MB (CK-2) C-Reactive Protein Total Protein Albumin Urine WBC (Auto) Urine Creatinine Urine Total Protein Coronavirus (PCR) 06/10/20 06/10/20 06/10/20 14:44 17:31 23:22 WBC RBC Hgb Hct RDW Lymph % (Auto) [place] % (Auto) Eos % (Auto) Lymph # [place] # Seg Neutrophils % Seg Neuts % (Manual) Lymphocytes % (Manual) Seg Neutrophils # Seg Neutrophils # Man Lymphocytes # (Manual) Monocytes # (Manual) D-Dimer Heparin Anti-Xa Level 0.17 L ABG pH ABG pO2 ABG HCO3 ABG O2 Saturation ABG Base Excess ABG Hemoglobin VBG pH Oxyhemoglobin Sodium Potassium Chloride Carbon Dioxide BUN Creatinine Glucose POC Glucose 128 H 114 H Lactic Acid Calcium AST Alkaline Phosphatase Lactate Dehydrogenase Total Creatine Kinase CK-MB (CK-2) C-Reactive Protein Total Protein Albumin Urine WBC (Auto) Urine Creatinine Urine Total Protein Coronavirus (PCR) 06/11/20 06/11/20 06/11/20 00:22 03:45 03:45 WBC 14.6 H RBC 2.77 L Hgb 7.9 L Hct 24.3 L RDW 16.8 H Lymph % (Auto) 6.6 L [place] % (Auto) 8.5 H Eos % (Auto) Lymph # 1.0 L [place] # 1.2 H Seg Neutrophils % 82.9 H Seg Neuts % (Manual) Lymphocytes % (Manual) Seg Neutrophils # 12.1 H Seg Neutrophils # Man Lymphocytes # (Manual) Monocytes # (Manual) D-Dimer Heparin Anti-Xa Level 0.24 L ABG pH ABG pO2 ABG HCO3 ABG O2 Saturation ABG Base Excess ABG Hemoglobin VBG pH Oxyhemoglobin Sodium Potassium Chloride Carbon Dioxide 20 L BUN 88 H Creatinine 1.5 H Glucose 111 H POC Glucose Lactic Acid Calcium 8.2 L AST Alkaline Phosphatase Lactate Dehydrogenase Total Creatine Kinase CK-MB (CK-2) C-Reactive Protein Total Protein Albumin Urine WBC (Auto) Urine Creatinine Urine Total Protein Coronavirus (PCR) 06/11/20 06/11/20 06/11/20 06:03 10:22 11:11 WBC RBC Hgb Hct RDW Lymph % (Auto) [place] % (Auto) Eos % (Auto) Lymph # [place] # Seg Neutrophils % Seg Neuts % (Manual) Lymphocytes % (Manual) Seg Neutrophils # Seg Neutrophils # Man Lymphocytes # (Manual) Monocytes # (Manual) D-Dimer Heparin Anti-Xa Level 0.26 L ABG pH ABG pO2 ABG HCO3 ABG O2 Saturation ABG Base Excess ABG Hemoglobin 9.6 L VBG pH Oxyhemoglobin Sodium Potassium Chloride Carbon Dioxide BUN Creatinine Glucose POC Glucose 114 H Lactic Acid Calcium AST Alkaline Phosphatase Lactate Dehydrogenase Total Creatine Kinase CK-MB (CK-2) C-Reactive Protein Total Protein Albumin Urine WBC (Auto) Urine Creatinine Urine Total Protein Coronavirus (PCR) 06/11/20 06/11/20 06/12/20 12:24 17:24 00:21 WBC RBC Hgb Hct RDW Lymph % (Auto) [place] % (Auto) Eos % (Auto) Lymph # [place] # Seg Neutrophils % Seg Neuts % (Manual) Lymphocytes % (Manual) Seg Neutrophils # Seg Neutrophils # Man Lymphocytes # (Manual) Monocytes # (Manual) D-Dimer Heparin Anti-Xa Level ABG pH ABG pO2 ABG HCO3 ABG O2 Saturation ABG Base Excess ABG Hemoglobin VBG pH Oxyhemoglobin Sodium Potassium Chloride Carbon Dioxide BUN Creatinine Glucose POC Glucose 119 H 126 H 117 H Lactic Acid Calcium AST Alkaline Phosphatase Lactate Dehydrogenase Total Creatine Kinase CK-MB (CK-2) C-Reactive Protein Total Protein Albumin Urine WBC (Auto) Urine Creatinine Urine Total Protein Coronavirus (PCR) 06/12/20 06/12/20 06/12/20 02:46 02:46 05:46 WBC 13.2 H RBC 2.83 L Hgb 8.3 L Hct 24.3 L RDW 16.6 H Lymph % (Auto) 6.2 L [place] % (Auto) 9.5 H Eos % (Auto) Lymph # 0.8 L [place] # 1.3 H Seg Neutrophils % 81.9 H Seg Neuts % (Manual) Lymphocytes % (Manual) Seg Neutrophils # 10.9 H Seg Neutrophils # Man Lymphocytes # (Manual) Monocytes # (Manual) D-Dimer Heparin Anti-Xa Level ABG pH ABG pO2 ABG HCO3 ABG O2 Saturation ABG Base Excess ABG Hemoglobin VBG pH Oxyhemoglobin Sodium Potassium 3.5 L Chloride Carbon Dioxide BUN 77 H Creatinine 1.3 H Glucose POC Glucose 132 H Lactic Acid Calcium 8.3 L AST Alkaline Phosphatase Lactate Dehydrogenase Total Creatine Kinase CK-MB (CK-2) C-Reactive Protein Total Protein Albumin Urine WBC (Auto) Urine Creatinine Urine Total Protein Coronavirus (PCR) 06/12/20 06/12/20 06/12/20 09:20 12:16 17:48 WBC RBC Hgb Hct RDW Lymph % (Auto) [place] % (Auto) Eos % (Auto) Lymph # [place] # Seg Neutrophils % Seg Neuts % (Manual) Lymphocytes % (Manual) Seg Neutrophils # Seg Neutrophils # Man Lymphocytes # (Manual) Monocytes # (Manual) D-Dimer Heparin Anti-Xa Level ABG pH ABG pO2 91.1 H ABG HCO3 ABG O2 Saturation ABG Base Excess ABG Hemoglobin VBG pH Oxyhemoglobin 94.8 L Sodium Potassium Chloride Carbon Dioxide BUN Creatinine Glucose POC Glucose 167 H 182 H Lactic Acid Calcium AST Alkaline Phosphatase Lactate Dehydrogenase Total Creatine Kinase CK-MB (CK-2) C-Reactive Protein Total Protein Albumin Urine WBC (Auto) Urine Creatinine Urine Total Protein Coronavirus (PCR) 06/13/20 06/13/20 06/13/20 00:08 05:37 09:09 WBC RBC Hgb Hct RDW Lymph % (Auto) [place] % (Auto) Eos % (Auto) Lymph # [place] # Seg Neutrophils % Seg Neuts % (Manual) Lymphocytes % (Manual) Seg Neutrophils # Seg Neutrophils # Man Lymphocytes # (Manual) Monocytes # (Manual) D-Dimer Heparin Anti-Xa Level 0.86 H ABG pH ABG pO2 ABG HCO3 ABG O2 Saturation ABG Base Excess ABG Hemoglobin VBG pH Oxyhemoglobin Sodium Potassium Chloride Carbon Dioxide BUN Creatinine Glucose POC Glucose 142 H 119 H Lactic Acid Calcium AST Alkaline Phosphatase Lactate Dehydrogenase Total Creatine Kinase CK-MB (CK-2) C-Reactive Protein Total Protein Albumin Urine WBC (Auto) Urine Creatinine Urine Total Protein Coronavirus (PCR) 06/13/20 06/13/20 06/13/20 12:28 17:55 21:17 WBC RBC Hgb Hct RDW Lymph % (Auto) [place] % (Auto) Eos % (Auto) Lymph # [place] # Seg Neutrophils % Seg Neuts % (Manual) Lymphocytes % (Manual) Seg Neutrophils # Seg Neutrophils # Man Lymphocytes # (Manual) Monocytes # (Manual) D-Dimer Heparin Anti-Xa Level ABG pH ABG pO2 ABG HCO3 ABG O2 Saturation ABG Base Excess ABG Hemoglobin VBG pH Oxyhemoglobin Sodium Potassium Chloride Carbon Dioxide BUN 61 H Creatinine Glucose 131 H POC Glucose 165 H 174 H Lactic Acid Calcium AST Alkaline Phosphatase Lactate Dehydrogenase Total Creatine Kinase CK-MB (CK-2) C-Reactive Protein Total Protein Albumin Urine WBC (Auto) Urine Creatinine Urine Total Protein Coronavirus (PCR) 06/13/20 06/13/20 06/14/20 21:17 23:50 05:34 WBC RBC Hgb Hct RDW Lymph % (Auto) [place] % (Auto) Eos % (Auto) Lymph # [place] # Seg Neutrophils % Seg Neuts % (Manual) Lymphocytes % (Manual) Seg Neutrophils # Seg Neutrophils # Man Lymphocytes # (Manual) Monocytes # (Manual) D-Dimer Heparin Anti-Xa Level 0.72 H ABG pH ABG pO2 ABG HCO3 ABG O2 Saturation ABG Base Excess ABG Hemoglobin VBG pH Oxyhemoglobin Sodium 146 H Potassium Chloride 107.6 H Carbon Dioxide BUN 61 H Creatinine 1.3 H Glucose 135 H POC Glucose 146 H Lactic Acid Calcium AST Alkaline Phosphatase Lactate Dehydrogenase Total Creatine Kinase CK-MB (CK-2) C-Reactive Protein Total Protein Albumin Urine WBC (Auto) Urine Creatinine Urine Total Protein Coronavirus (PCR) 06/14/20 06/14/20 06/14/20 06:11 09:28 11:30 WBC RBC Hgb Hct RDW Lymph % (Auto) [place] % (Auto) Eos % (Auto) Lymph # [place] # Seg Neutrophils % Seg Neuts % (Manual) Lymphocytes % (Manual) Seg Neutrophils # Seg Neutrophils # Man Lymphocytes # (Manual) Monocytes # (Manual) D-Dimer Heparin Anti-Xa Level 0.90 H ABG pH ABG pO2 ABG HCO3 ABG O2 Saturation ABG Base Excess ABG Hemoglobin VBG pH Oxyhemoglobin Sodium Potassium Chloride Carbon Dioxide BUN Creatinine Glucose POC Glucose 141 H 186 H Lactic Acid Calcium AST Alkaline Phosphatase Lactate Dehydrogenase Total Creatine Kinase CK-MB (CK-2) C-Reactive Protein Total Protein Albumin Urine WBC (Auto) Urine Creatinine Urine Total Protein Coronavirus (PCR) 06/14/20 06/14/20 06/14/20 16:07 18:16 23:51 WBC RBC Hgb Hct RDW Lymph % (Auto) [place] % (Auto) Eos % (Auto) Lymph # [place] # Seg Neutrophils % Seg Neuts % (Manual) Lymphocytes % (Manual) Seg Neutrophils # Seg Neutrophils # Man Lymphocytes # (Manual) Monocytes # (Manual) D-Dimer Heparin Anti-Xa Level 0.82 H ABG pH ABG pO2 ABG HCO3 ABG O2 Saturation ABG Base Excess ABG Hemoglobin VBG pH Oxyhemoglobin Sodium Potassium Chloride Carbon Dioxide BUN Creatinine Glucose POC Glucose 106 H 154 H Lactic Acid Calcium AST Alkaline Phosphatase Lactate Dehydrogenase Total Creatine Kinase CK-MB (CK-2) C-Reactive Protein Total Protein Albumin Urine WBC (Auto) Urine Creatinine Urine Total Protein Coronavirus (PCR) 06/15/20 06/15/20 06/15/20 04:24 04:24 05:59 WBC RBC 2.75 L Hgb 7.9 L Hct 24.0 L RDW 16.4 H Lymph % (Auto) 12.9 L [place] % (Auto) 8.7 H Eos % (Auto) 4.6 H Lymph # 1.1 L [place] # Seg Neutrophils % 73.2 H Seg Neuts % (Manual) Lymphocytes % (Manual) Seg Neutrophils # Seg Neutrophils # Man Lymphocytes # (Manual) Monocytes # (Manual) D-Dimer Heparin Anti-Xa Level ABG pH ABG pO2 ABG HCO3 ABG O2 Saturation ABG Base Excess ABG Hemoglobin VBG pH Oxyhemoglobin Sodium Potassium 3.4 L Chloride Carbon Dioxide BUN 55 H Creatinine 1.3 H Glucose 142 H POC Glucose 131 H Lactic Acid Calcium AST Alkaline Phosphatase Lactate Dehydrogenase Total Creatine Kinase CK-MB (CK-2) C-Reactive Protein Total Protein Albumin Urine WBC (Auto) Urine Creatinine Urine Total Protein Coronavirus (PCR) 06/15/20 06/15/20 06/16/20 12:33 17:07 00:22 WBC RBC Hgb Hct RDW Lymph % (Auto) [place] % (Auto) Eos % (Auto) Lymph # [place] # Seg Neutrophils % Seg Neuts % (Manual) Lymphocytes % (Manual) Seg Neutrophils # Seg Neutrophils # Man Lymphocytes # (Manual) Monocytes # (Manual) D-Dimer Heparin Anti-Xa Level 0.21 L ABG pH ABG pO2 ABG HCO3 ABG O2 Saturation ABG Base Excess ABG Hemoglobin VBG pH Oxyhemoglobin Sodium Potassium Chloride Carbon Dioxide BUN Creatinine Glucose POC Glucose 180 H 185 H Lactic Acid Calcium AST Alkaline Phosphatase Lactate Dehydrogenase Total Creatine Kinase CK-MB (CK-2) C-Reactive Protein Total Protein Albumin Urine WBC (Auto) Urine Creatinine Urine Total Protein Coronavirus (PCR) 06/16/20 06/16/20 06/16/20 01:45 08:06 09:15 WBC RBC Hgb Hct RDW Lymph % (Auto) [place] % (Auto) Eos % (Auto) Lymph # [place] # Seg Neutrophils % Seg Neuts % (Manual) Lymphocytes % (Manual) Seg Neutrophils # Seg Neutrophils # Man Lymphocytes # (Manual) Monocytes # (Manual) D-Dimer Heparin Anti-Xa Level ABG pH ABG pO2 ABG HCO3 ABG O2 Saturation ABG Base Excess ABG Hemoglobin VBG pH Oxyhemoglobin Sodium Potassium Chloride Carbon Dioxide BUN 49 H Creatinine Glucose 154 H POC Glucose 140 H 171 H Lactic Acid Calcium AST Alkaline Phosphatase Lactate Dehydrogenase Total Creatine Kinase CK-MB (CK-2) C-Reactive Protein Total Protein Albumin Urine WBC (Auto) Urine Creatinine Urine Total Protein Coronavirus (PCR) 06/16/20 06/16/20 06/16/20 10:46 12:33 17:54 WBC RBC Hgb Hct RDW Lymph % (Auto) [place] % (Auto) Eos % (Auto) Lymph # [place] # Seg Neutrophils % Seg Neuts % (Manual) Lymphocytes % (Manual) Seg Neutrophils # Seg Neutrophils # Man Lymphocytes # (Manual) Monocytes # (Manual) D-Dimer Heparin Anti-Xa Level 0.12 L ABG pH ABG pO2 ABG HCO3 ABG O2 Saturation ABG Base Excess ABG Hemoglobin VBG pH Oxyhemoglobin Sodium Potassium Chloride Carbon Dioxide BUN Creatinine Glucose POC Glucose 166 H 151 H Lactic Acid Calcium AST Alkaline Phosphatase Lactate Dehydrogenase Total Creatine Kinase CK-MB (CK-2) C-Reactive Protein Total Protein Albumin Urine WBC (Auto) Urine Creatinine Urine Total Protein Coronavirus (PCR) 06/16/20 06/17/20 06/17/20 18:47 00:00 02:19 WBC RBC Hgb Hct RDW Lymph % (Auto) [place] % (Auto) Eos % (Auto) Lymph # [place] # Seg Neutrophils % Seg Neuts % (Manual) Lymphocytes % (Manual) Seg Neutrophils # Seg Neutrophils # Man Lymphocytes # (Manual) Monocytes # (Manual) D-Dimer Heparin Anti-Xa Level 0.73 H 0.77 H ABG pH ABG pO2 ABG HCO3 ABG O2 Saturation ABG Base Excess ABG Hemoglobin VBG pH Oxyhemoglobin Sodium Potassium Chloride Carbon Dioxide BUN Creatinine Glucose POC Glucose 139 H Lactic Acid Calcium AST Alkaline Phosphatase Lactate Dehydrogenase Total Creatine Kinase CK-MB (CK-2) C-Reactive Protein Total Protein Albumin Urine WBC (Auto) Urine Creatinine Urine Total Protein Coronavirus (PCR) 06/17/20 06/17/20 06/17/20 06:07 11:42 16:43 WBC RBC Hgb Hct RDW Lymph % (Auto) [place] % (Auto) Eos % (Auto) Lymph # [place] # Seg Neutrophils % Seg Neuts % (Manual) Lymphocytes % (Manual) Seg Neutrophils # Seg Neutrophils # Man Lymphocytes # (Manual) Monocytes # (Manual) D-Dimer Heparin Anti-Xa Level 0.73 H ABG pH ABG pO2 ABG HCO3 ABG O2 Saturation ABG Base Excess ABG Hemoglobin VBG pH Oxyhemoglobin Sodium Potassium Chloride Carbon Dioxide BUN Creatinine Glucose POC Glucose 169 H 169 H Lactic Acid Calcium AST Alkaline Phosphatase Lactate Dehydrogenase Total Creatine Kinase CK-MB (CK-2) C-Reactive Protein Total Protein Albumin Urine WBC (Auto) Urine Creatinine Urine Total Protein Coronavirus (PCR) 06/17/20 06/17/20 06/17/20 18:18 23:08 23:16 WBC RBC Hgb Hct RDW Lymph % (Auto) [place] % (Auto) Eos % (Auto) Lymph # [place] # Seg Neutrophils % Seg Neuts % (Manual) Lymphocytes % (Manual) Seg Neutrophils # Seg Neutrophils # Man Lymphocytes # (Manual) Monocytes # (Manual) D-Dimer Heparin Anti-Xa Level 0.71 H ABG pH ABG pO2 ABG HCO3 ABG O2 Saturation ABG Base Excess ABG Hemoglobin VBG pH Oxyhemoglobin Sodium Potassium Chloride Carbon Dioxide BUN Creatinine Glucose POC Glucose 159 H 134 H Lactic Acid Calcium AST Alkaline Phosphatase Lactate Dehydrogenase Total Creatine Kinase CK-MB (CK-2) C-Reactive Protein Total Protein Albumin Urine WBC (Auto) Urine Creatinine Urine Total Protein Coronavirus (PCR) 06/18/20 06/18/20 06/18/20 04:42 05:52 11:50 WBC RBC Hgb Hct RDW Lymph % (Auto) [place] % (Auto) Eos % (Auto) Lymph # [place] # Seg Neutrophils % Seg Neuts % (Manual) Lymphocytes % (Manual) Seg Neutrophils # Seg Neutrophils # Man Lymphocytes # (Manual) Monocytes # (Manual) D-Dimer Heparin Anti-Xa Level ABG pH ABG pO2 ABG HCO3 ABG O2 Saturation ABG Base Excess ABG Hemoglobin VBG pH Oxyhemoglobin Sodium Potassium Chloride Carbon Dioxide BUN 44 H Creatinine Glucose 115 H POC Glucose 171 H 167 H Lactic Acid Calcium AST Alkaline Phosphatase Lactate Dehydrogenase Total Creatine Kinase CK-MB (CK-2) C-Reactive Protein Total Protein Albumin Urine WBC (Auto) Urine Creatinine Urine Total Protein Coronavirus (PCR) 06/18/20 06/19/2006/19/20 23:46 05:48 07:52 WBC RBC Hgb Hct RDW Lymph % (Auto) [place] % (Auto) Eos % (Auto) Lymph # [place] # Seg Neutrophils % Seg Neuts % (Manual) Lymphocytes % (Manual) Seg Neutrophils # Seg Neutrophils # Man Lymphocytes # (Manual) Monocytes # (Manual) D-Dimer Heparin Anti-Xa Level ABG pH ABG pO2 ABG HCO3 ABG O2 Saturation ABG Base Excess ABG Hemoglobin VBG pH Oxyhemoglobin Sodium Potassium Chloride Carbon Dioxide BUN Creatinine Glucose POC Glucose 130 H 207 H 175 H Lactic Acid Calcium AST Alkaline Phosphatase Lactate Dehydrogenase Total Creatine Kinase CK-MB (CK-2) C-Reactive Protein Total Protein Albumin Urine WBC (Auto) Urine Creatinine Urine Total Protein Coronavirus (PCR) 06/19/20 06/19/20 06/20/20 11:42 22:54 05:17 WBC RBC Hgb Hct RDW Lymph % (Auto) [place] % (Auto) Eos % (Auto) Lymph # [place] # Seg Neutrophils % Seg Neuts % (Manual) Lymphocytes % (Manual) Seg Neutrophils # Seg Neutrophils # Man Lymphocytes # (Manual) Monocytes # (Manual) D-Dimer Heparin Anti-Xa Level ABG pH ABG pO2 ABG HCO3 ABG O2 Saturation ABG Base Excess ABG Hemoglobin VBG pH Oxyhemoglobin Sodium Potassium Chloride Carbon Dioxide BUN Creatinine Glucose POC Glucose 166 H 135 H 218 H Lactic Acid Calcium AST Alkaline Phosphatase Lactate Dehydrogenase Total Creatine Kinase CK-MB (CK-2) C-Reactive Protein Total Protein Albumin Urine WBC (Auto) Urine Creatinine Urine Total Protein Coronavirus (PCR) 06/20/20 06/20/20 06/20/20 12:04 16:25 16:35 WBC RBC Hgb Hct RDW Lymph % (Auto) [place] % (Auto) Eos % (Auto) Lymph # [place] # Seg Neutrophils % Seg Neuts % (Manual) Lymphocytes % (Manual) Seg Neutrophils # Seg Neutrophils # Man Lymphocytes # (Manual) Monocytes # (Manual) D-Dimer Heparin Anti-Xa Level ABG pH ABG pO2 59.6 L ABG HCO3 28.7 H ABG O2 Saturation 93.5 L ABG Base Excess 3.4 H ABG Hemoglobin 7.2 L VBG pH Oxyhemoglobin 91.3 L Sodium Potassium Chloride Carbon Dioxide BUN Creatinine Glucose POC Glucose 194 H 137 H Lactic Acid Calcium AST Alkaline Phosphatase Lactate Dehydrogenase Total Creatine Kinase CK-MB (CK-2) C-Reactive Protein Total Protein Albumin Urine WBC (Auto) Urine Creatinine Urine Total Protein Coronavirus (PCR) 06/20/20 06/21/20 06/21/20 23:59 06:25 12:01 WBC RBC Hgb Hct RDW Lymph % (Auto) [place] % (Auto) Eos % (Auto) Lymph # [place] # Seg Neutrophils % Seg Neuts % (Manual) Lymphocytes % (Manual) Seg Neutrophils # Seg Neutrophils # Man Lymphocytes # (Manual) Monocytes # (Manual) D-Dimer Heparin Anti-Xa Level ABG pH ABG pO2 ABG HCO3 ABG O2 Saturation ABG Base Excess ABG Hemoglobin VBG pH Oxyhemoglobin Sodium Potassium Chloride Carbon Dioxide BUN Creatinine Glucose POC Glucose 156 H 177 H 195 H Lactic Acid Calcium AST Alkaline Phosphatase Lactate Dehydrogenase Total Creatine Kinase CK-MB (CK-2) C-Reactive Protein Total Protein Albumin Urine WBC (Auto) Urine Creatinine Urine Total Protein Coronavirus (PCR) 06/21/20 06/21/20 06/22/20 17:04 21:51 05:06 WBC RBC Hgb Hct RDW Lymph % (Auto) [place] % (Auto) Eos % (Auto) Lymph # [place] # Seg Neutrophils % Seg Neuts % (Manual) Lymphocytes % (Manual) Seg Neutrophils # Seg Neutrophils # Man Lymphocytes # (Manual) Monocytes # (Manual) D-Dimer Heparin Anti-Xa Level ABG pH ABG pO2 ABG HCO3 ABG O2 Saturation ABG Base Excess ABG Hemoglobin VBG pH Oxyhemoglobin Sodium Potassium Chloride Carbon Dioxide BUN Creatinine Glucose POC Glucose 156 H 154 H 167 H Lactic Acid Calcium AST Alkaline Phosphatase Lactate Dehydrogenase Total Creatine Kinase CK-MB (CK-2) C-Reactive Protein Total Protein Albumin Urine WBC (Auto) Urine Creatinine Urine Total Protein Coronavirus (PCR) 06/22/20 11:20 WBC RBC Hgb Hct RDW Lymph % (Auto) [place] % (Auto) Eos % (Auto) Lymph # [place] # Seg Neutrophils % Seg Neuts % (Manual) Lymphocytes % (Manual) Seg Neutrophils # Seg Neutrophils # Man Lymphocytes # (Manual) Monocytes # (Manual) D-Dimer Heparin Anti-Xa Level ABG pH ABG pO2 ABG HCO3 ABG O2 Saturation ABG Base Excess ABG Hemoglobin VBG pH Oxyhemoglobin Sodium Potassium Chloride Carbon Dioxide BUN Creatinine Glucose POC Glucose 181 H Lactic Acid Calcium AST Alkaline Phosphatase Lactate Dehydrogenase Total Creatine Kinase CK-MB (CK-2) C-Reactive Protein Total Protein Albumin Urine WBC (Auto) Urine Creatinine Urine Total Protein Coronavirus (PCR) Chest x-ray: other (none today) Allied health notes reviewed: RT
--- NOTE | 2020-06-22 15:25 | XRay Report ---
CHEST 1 VIEW INDICATION / CLINICAL INFORMATION: aspiration. COMPARISON: 06/20/2020 FINDINGS: SUPPORT DEVICES: Feeding tube HEART / MEDIASTINUM: No significant abnormality. LUNGS / PLEURA: Perihilar prominence and interstitial prominence unchanged No pneumothorax. ADDITIONAL FINDINGS: No significant additional findings. IMPRESSION: Perihilar prominence and interstitial prominence unchanged from prior examination dated 06/20/2020 Signer Name: Mario Alberto Brower MD FACR Signed: 06/22/2020 3:21 PM Workstation Name: [id number]
--- NOTE | 2020-06-22 17:59 | Progress Note ---
Assessment and Plan Assessment and plan: --COVID-19 positive 05/28/2020 --Superficial left cephalic vein DVT/elevated D-dimers[COVID 19] Patient is on heparin drip from 05/29/20 D-dimers improved [id number] DC heparin drip, Discussed with ID, Eliquis 5 mg twice a day for 1 week[per ID] stop date 06/26/2020 -- Acute hypoxemic respiratory failure From COVID-19 viral infection extubated on , on high flow o2 -- s/p PEA Cardiac arrest Cardiology team on board Conservative management as per cardiology -- Acute metabolic encephalopathy, POA likely from sepsis and s/p cardiac arrest with possible anoxic injury -- Acute renal failure: likely ATN Cr slowly improving Avoid ACEI and other nephrotoxic medications Nephrology following -- Coronavirus infection with b/l PNA Completed remdesivir on 06/02 Completed dexamethasone - Last dose 06/07 ID recs appreciated. --Klebsiella pneumonia: Completed antibiotics --CHF (congestive heart failure) Cardiology following. Ef 45% -- Coffee ground emesis -Stress ulcers Possible stress ulcers, On PPI H/H remains stable GI evaluation if Hb drops again -- Hypertension; moderate control Continue amlodipine, coreg, clonidine and hydralazine --Mild LFT elevation: likely from COVID-19. -- DVT prophylaxis Eliquis, SCD to bilateral lower extremities while in bed -- Advance care planning Patient is full code. poor prognosis Patient is critically ill with multiple medical problems Poor prognosis Plan of care reviewed with the patient and his nurse 06/13: extubated yesterday, now on Bipap 06/14: patient on Bipap, remains on TF, restraint. cont to follow clinically 06/15: patient on high flow O2,remains on TF, restraint. cont to follow clinically. transfer to IMCU 06/16: Patient remains on high flow O2, intermittently on BiPAP. Tolerating tube feeding. cont to monitor at IMCU 06/17; patient on BiPAP. Remains confused and on tube feeding. Continue to monitor at IMCU. Wean off O2 as tolerated. 06/18; patient feels slightly better on high flow oxygen, minimally communicative, stable to be transferred out of IM to telemetry 06/20; remains hypoxic on high flow oxygen, today noncommunicative sleeping all the time, vital signs noted 06/21; more alert and awake confused at times and pulling, restraint for safety, on high flow oxygen We will request physical therapy once more stable 06/22; PT unable to assess due to safety concerns, remains hypoxic on high flow oxygen, BiPAP at night. minimally communicative Brief history: 64 YO Female with a medical history of HTN, Diastolic CHF, Pulmonary HTN, DM, Obesity Hypoventilation Syndrome presents to ED for evaluation of shortness of breath. As per staff, the EMS was notified for difficulty breathing. Upon arrival to the patient's home the patient was found to be in distress and was subsequently transported to [facility] for further evaluation and care. In route to [facility] the patient developed cardiac arrest and was treated in accordance with ACLS protocol with return of ROSC. Patient was seen and evaluated in the emergency department and was intubated and placed on ventilatory support. Patient admitted to ICU. Critical care team consulted in ED. She was found to have COVID-19 infection and was started on steroids and remdesivir. ID was consulted. Cardiology was consulted for her systolic heart failure and cardiac arrest. Patient completed treatment for COVID-19, then develop superimposed bacterial pneumonia with Klebsiella. She is now extubated, but remains confused and requiring high flow O2 and intermittent BiPAP. History Interval history: I have seen and examined the patient at the bedside Isolation precautions, PPE protocols strictly followed Morbidly obese female patient, chronically ill looking Remains on high flow oxygen, minimally communicative Vital signs noted, low-grade fever And moderate distress Hospitalist Physical - Constitutional Vitals: Temp Pulse Resp BP Pulse Ox 99.7 F H 73 22 99/33 95 06/22/20 16:41 06/22/20 16:41 06/22/20 16:41 06/22/20 16:41 06/22/20 16:41 General appearance: Present: mild distress, well-nourished, obese (Morbidly obese), other (On high flow oxygen) - EENT Eyes: Present: PERRL, EOM intact - Neck Neck: Present: supple, normal ROM - Respiratory Respiratory effort: normal Respiratory: bilateral: diminished, rhonchi, negative: rales, wheezing - Cardiovascular Rhythm: regular Heart Sounds: Present: S1 & S2 - Extremities Extremities: no ischemia, No edema - Abdominal General gastrointestinal: soft, non-tender, non-distended, normal bowel sounds - Integumentary Integumentary: Present: clear, warm - Psychiatric Psychiatric: other (Minimally communicative) - Neurologic Neurologic: other (Minimally communicative) Results - Labs CBC & Chem 7: 06/15/20 04:24 06/18/20 04:42 Labs: Laboratory Last Values WBC 8.8 K/mm3 (4.5-11.0) 06/15/20 04:24 RBC 2.75 M/mm3 (3.65-5.03) L 06/15/20 04:24 Hgb 7.9 gm/dl (10.1-14.3) L 06/15/20 04:24 Hct 24.0 % (30.3-42.9) L 06/15/20 04:24 MCV 87 fl (79-97) 06/15/20 04:24 MCH 29 pg (28-32) 06/15/20 04:24 MCHC 33 % (30-34) 06/15/20 04:24 RDW 16.4 % (13.2-15.2) H 06/15/20 04:24 Plt Count 203 K/mm3 (140-440) 06/15/20 04:24 Lymph % (Auto) 12.9 % (13.4-35.0) L 06/15/20 04:24 [place] % (Auto) 8.7 % (0.0-7.3) H 06/15/20 04:24 Eos % (Auto) 4.6 % (0.0-4.3) H 06/15/20 04:24 Baso % (Auto) 0.6 % (0.0-1.8) 06/15/20 04:24 Lymph # 1.1 K/mm3 (1.2-5.4) L 06/15/20 04:24 [place] # 0.8 K/mm3 (0.0-0.8) 06/15/20 04:24 Eos # 0.4 K/mm3 (0.0-0.4) 06/15/20 04:24 Baso # 0.1 K/mm3 (0.0-0.1) 06/15/20 04:24 Add Manual Diff Complete 06/09/20 05:16 Total Counted 100 06/09/20 05:16 Seg Neutrophils % 73.2 % (40.0-70.0) H 06/15/20 04:24 Seg Neuts % (Manual) 85.0 % (40.0-70.0) H 06/09/20 05:16 Band Neutrophils % 0 % 06/09/20 05:16 Lymphocytes % (Manual) 7.0 % (13.4-35.0) L 06/09/20 05:16 Reactive Lymphs % (Man) 0 % 06/09/20 05:16 Monocytes % (Manual) 7.0 % (0.0-7.3) 06/09/20 05:16 Eosinophils % (Manual) 1.0 % (0.0-4.3) 06/09/20 05:16 Basophils % (Manual) 0 % (0.0-1.8) 06/09/20 05:16 Metamyelocytes % 0 % 06/09/20 05:16 Myelocytes % 0 % 06/09/20 05:16 Promyelocytes % 0 % 06/09/20 05:16 Blast Cells % 0 % 06/09/20 05:16 Nucleated RBC % Not Reportable 06/09/20 05:16 Seg Neutrophils # 6.4 K/mm3 (1.8-7.7) 06/15/20 04:24 Seg Neutrophils # Man 16.2 K/mm3 (1.8-7.7) H 06/09/20 05:16 Band Neutrophils # 0.0 K/mm3 06/09/20 05:16 Lymphocytes # (Manual) 1.3 K/mm3 (1.2-5.4) 06/09/20 05:16 Abs React Lymphs (Man) 0.0 K/mm3 06/09/20 05:16 Monocytes # (Manual) 1.3 K/mm3 (0.0-0.8) H 06/09/20 05:16 Eosinophils # (Manual) 0.2 K/mm3 (0.0-0.4) 06/09/20 05:16 Basophils # (Manual) 0.0 K/mm3 (0.0-0.1) 06/09/20 05:16 Metamyelocytes # 0.0 K/mm3 06/09/20 05:16 Myelocytes # 0.0 K/mm3 06/09/20 05:16 Promyelocytes # 0.0 K/mm3 06/09/20 05:16 Blast Cells # 0.0 K/mm3 06/09/20 05:16 WBC Morphology Not Reportable 06/09/20 05:16 Hypersegmented Neuts Not Reportable 06/09/20 05:16 Hyposegmented Neuts Not Reportable 06/09/20 05:16 Hypogranular Neuts Not Reportable 06/09/20 05:16 Smudge Cells Not Reportable 06/09/20 05:16 Toxic Granulation Not Reportable 06/09/20 05:16 Toxic Vacuolation Not Reportable 06/09/20 05:16 Dohle Bodies Not Reportable 06/09/20 05:16 Pelger-Huet Anomaly Not Reportable 06/09/20 05:16 Sanjuanita Rods Not Reportable 06/09/20 05:16 Platelet Estimate Consistent w auto 06/09/20 05:16 Clumped Platelets Not Reportable 06/09/20 05:16 Plt Clumps, EDTA Not Reportable 06/09/20 05:16 Large Platelets Not Reportable 06/09/20 05:16 Giant Platelets Not Reportable 06/09/20 05:16 Platelet Satelliting Not Reportable 06/09/20 05:16 Plt Morphology Comment Not Reportable 06/09/20 05:16 RBC Morphology Not Reportable 06/09/20 05:16 Dimorphic RBCs Not Reportable 06/09/20 05:16 Polychromasia Rare 06/09/20 05:16 Hypochromasia Few 06/09/20 05:16 Poikilocytosis Not Reportable 06/09/20 05:16 Anisocytosis Few 06/09/20 05:16 Microcytosis Not Reportable 06/09/20 05:16 Macrocytosis Not Reportable 06/09/20 05:16 Spherocytes Not Reportable 06/09/20 05:16 Pappenheimer Bodies Not Reportable 06/09/20 05:16 Sickle Cells Not Reportable 06/09/20 05:16 Target Cells Not Reportable 06/09/20 05:16 Tear Drop Cells Not Reportable 06/09/20 05:16 Ovalocytes Not Reportable 06/09/20 05:16 Helmet Cells Not Reportable 06/09/20 05:16 Jones-Platter Bodies Not Reportable 06/09/20 05:16 [place] Rings Not Reportable 06/09/20 05:16 Emery Cells Not Reportable 06/09/20 05:16 Bite Cells Not Reportable 06/09/20 05:16 Crenated Cell Not Reportable 06/09/20 05:16 Elliptocytes Not Reportable 06/09/20 05:16 Acanthocytes (Spur) Not Reportable 06/09/20 05:16 Rouleaux Not Reportable 06/09/20 05:16 Hemoglobin C Crystals Not Reportable 06/09/20 05:16 Schistocytes Not Reportable 06/09/20 05:16 Malaria parasites Not Reportable 06/09/20 05:16 Kev Bodies Not Reportable 06/09/20 05:16 Hem Pathologist Commnt No 06/09/20 05:16 PT 14.2 Sec. (12.2-14.9) 05/29/20 15:10 INR 1.08 (0.87-1.13) 05/29/20 15:10 APTT 27.2 Sec. (24.2-36.6) 05/29/20 15:10 D-Dimer 414.52 ng/mlDDU (0-234) H 06/04/20 04:19 Heparin Anti-Xa Level 0.34 U.I./ml (0.3-0.7) 06/19/20 10:46 ABG pH 7.206 (7.320-7.450) L 06/22/20 15:27 POC ABG pCO2 79.9 mmHg (32.0-48.0) H 06/22/20 15:27 ABG pCO2 48.2 mm Hg 06/20/20 16:35 POC ABG pO2 92.3 mmHg (83-108) 06/22/20 15:27 ABG pO2 59.6 mm Hg (80.0-90.0) L 06/20/20 16:35 POC ABG HCO3 31.0 06/22/20 15:27 ABG HCO3 28.7 mmol/L (20.0-26.0) H 06/20/20 16:35 ABG O2 Saturation 93.5 % (95.0-99.0) L 06/20/20 16:35 ABG O2 Content 9.4 (0.0-44) 06/20/20 16:35 POC ABG Base Excess 2.1 06/22/20 15:27 ABG Base Excess 3.4 mmol/L (-2.0-3.0) H 06/20/20 16:35 ABG Hemoglobin 8.3 (12.0-17.5) L 06/22/20 15:27 ABG Oxyhemoglobin 94.7 (94-98) 06/22/20 15:27 ABG Carboxyhemoglobin 1.7 % (0.0-5.0) 06/20/20 16:35 ABG Methemoglobin 0.3 (0.0-1.5) 06/22/20 15:27 VBG pH 7.152 (7.320-7.420) L* 05/28/20 13:47 Oxyhemoglobin 91.3 % (95.0-99.0) L 06/20/20 16:35 Carboxyhemoglobin 0.8 (0.5-1.5) 06/22/20 15:27 FiO2 44.0 06/22/20 15:27 Sodium 142 mmol/L (137-145) 06/18/20 04:42 Potassium 3.9 mmol/L (3.6-5.0) 06/18/20 04:42 Chloride 104.1 mmol/L (98-107) 06/18/20 04:42 Carbon Dioxide 26 mmol/L (22-30) 06/18/20 04:42 Anion Gap 16 mmol/L 06/18/20 04:42 BUN 44 mg/dL (7-17) H 06/18/20 04:42 Creatinine 1.1 mg/dL (0.6-1.2) 06/18/20 04:42 Estimated GFR 50 ml/min 06/18/20 04:42 BUN/Creatinine Ratio 40 % 06/18/20 04:42 Glucose 115 mg/dL (65-100) H 06/18/20 04:42 POC Glucose 230 (70-105) H 06/22/20 16:58 Lactic Acid 1.90 mmol/L (0.7-2.0) 05/28/20 14:46 Calcium 9.3 mg/dL (8.4-10.2) 06/18/20 04:42 Ferritin 100.7 ng/mL (10.0-200.0) 06/04/20 04:19 Total Bilirubin 0.20 mg/dL (0.1-1.2) 06/09/20 05:16 AST 16 units/L (5-40) 06/09/20 05:16 ALT 14 units/L (7-56) 06/09/20 05:16 Alkaline Phosphatase < 5 units/L (35-129) L 06/09/20 05:16 Lactate Dehydrogenase 271 units/L (91-180) H 06/04/20 04:19 Total Creatine Kinase 301 units/L (30-135) H 05/28/20 13:47 CK-MB (CK-2) 4.3 ng/mL (0.0-4.0) H 05/28/20 13:47 CK-MB (CK-2) Rel Index 1.4 (0-4) 05/28/20 13:47 C-Reactive Protein 2.20 mg/dL (0.00-1.30) H 06/04/20 04:19 Total Protein 4.6 g/dL (6.3-8.2) L 06/09/20 05:16 Albumin < 0.2 g/dL (3.9-5) L 06/09/20 05:16 Albumin/Globulin Ratio 1.0 % 06/09/20 05:16 Procalcitonin 0.46 ng/mL (<0.15) 06/10/20 05:49 Urine Color Yellow (Yellow) 06/06/20 04:00 Urine Turbidity Cloudy (Clear) 06/06/20 04:00 Urine pH 5.0 (5.0-7.0) 06/06/20 04:00 Ur Specific [place] 1.012 (1.003-1.030) 06/06/20 04:00 Urine Protein 100 mg/dl mg/dL (Negative) 06/06/20 04:00 Urine Glucose (UA) 50 mg/dL (Negative) 06/06/20 04:00 Urine Ketones Neg mg/dL (Negative) 06/06/20 04:00 Urine Blood Sm (Negative) 06/06/20 04:00 Urine Nitrite Neg (Negative) 06/06/20 04:00 Urine Bilirubin Neg (Negative) 06/06/20 04:00 Urine Urobilinogen < 2.0 mg/dL (<2.0) 06/06/20 04:00 Ur Leukocyte Esterase Neg (Negative) 06/06/20 04:00 Urine WBC (Auto) 15.0 /HPF (0.0-6.0) H 06/06/20 04:00 Urine RBC (Auto) 23.0 /HPF (0.0-6.0) 06/06/20 04:00 U Epithel Cells (Auto) 8.0 /HPF (0-13.0) 06/06/20 04:00 Urine Bacteria (Auto) 2+ /HPF (Negative) 06/06/20 04:00 Amorphous Crystals 1+ 06/06/20 04:00 Hyaline Casts 16 /LPF 06/06/20 04:00 Urine Mucus 2+ /HPF 06/06/20 04:00 Urine Yeast (Budding) 2+ /HPF 06/03/20 Unknown Urine Creatinine 82.2 mg/dL (0.1-20.0) H 06/06/20 04:00 Urine Sodium 20 mmol/L 06/06/20 04:00 Urine Total Protein 196 mg/dL (5-11.8) H 06/06/20 04:00 Coronavirus (PCR) Positive (Negative) A 05/28/20 Unknown - Diagnostic Impressions Diagnostic Impressions: Echocardiogram Limited Views 05/29/20 13:52 Transthoracic Echocardiogram Indication: Pulm Embolus BP: 169/76 HR: 85 Conclusions *Limited study for RV size post cardiopulmonar arrest. *RV is only slightly dilated, no significant difference from prior echo 05/13/2020. *Global left ventricular systolic function is at the lower limits of normal. *The estimated ejection fraction is 45-50%. *Mild to moderate concentric left ventricular hypertrophy is observed. *The left and right atria are both mild to moderately dilated. Findings Left Ventricle: The left ventricular chamber size is mildly dilated. Mild to moderate concentric left ventricular hypertrophy is observed. Global left ventricular systolic function is at the lower limits of normal. The estimated ejection fraction is 45-50%. Left Atrium: The left atrium is mild to moderately dilated. Right Ventricle: The right ventricle is slightly dilated. Right Atrium: The right atrium is mild to moderately dilated. Aortic Valve: The aortic valve leaflets are moderately thickened. Mitral Valve: There is mitral annular calcification. The mitral valve leaflets are moderately thickened. Tricuspid Valve: The tricuspid valve leaflets are mildly thickened. Pericardium: A trivial pericardial effusion is visualized. NDUM: 08/21/20 1808 Amended Report Transthoracic Echocardiogram Indication: Pulm Embolus BP: 169/76 HR: 85 Conclusions *Limited study for RV size post cardiopulmonary arrest. *RV is only slightly dilated, no significant difference from prior echo 05/13/2020. *Global left ventricular systolic function is at the lower limits of normal. *The estimated ejection fraction is 45-50%. *Mild to moderate concentric left ventricular hypertrophy is observed. *The left and right atria are both mild to moderately dilated. Findings Left Ventricle: The left ventricular chamber size is mildly dilated. Mild to moderate concentric left ventricular hypertrophy is observed. Global left ventricular systolic function is at the lower limits of normal. The estimated ejection fraction is 45-50%. Left Atrium: The left atrium is mild to moderately dilated. Right Ventricle: The right ventricle is slightly dilated. Right Atrium: The right atrium is mild to moderately dilated. Aortic Valve: The aortic valve leaflets are moderately thickened. Mitral Valve: There is mitral annular calcification. The mitral valve leaflets are moderately thickened. Tricuspid Valve: The tricuspid valve leaflets are mildly thickened. Pericardium: A trivial pericardial effusion is visualized. Helm/IV: Voiding Method Incontinent IV Catheter Type [Right Hand] Peripheral IV IV Catheter Type [Right Wrist] Not found on patient IV Catheter Type [Left Hand] INT / Saline Lock IV Catheter Type [Left INT / Saline Lock Antecubital] IV Catheter Type [Right Peripheral IV Forearm] IV Catheter Type [Left Leg] Intra-osseous Active Medications - Current Medications Current Medications: Generic Name Dose Route Start Last Admin Trade Name Freq PRN Reason Stop Dose Admin Acetaminophen 650 mg 06/09/20 10:57 06/22/20 11:58 Tylenol FEEDTUBE 650 mg Q6H PRN Administration Fever >101 Amlodipine Besylate 10 mg 06/02/20 11:00 06/22/20 10:46 Amlodipine PO 10 mg DAILY NELSON Administration Lipase/Protease/Amylase 1 each 05/29/20 13:39 Pancreaze 10,500 Unit FEEDTUBE PRN PRN For Clogged Feeding Tube Apixaban 5 mg 06/19/20 22:00 06/22/20 10:47 Eliquis PO 06/26/20 10:01 5 mg Q12HR NELSON Administration Protocol Carvedilol 12.5 mg 06/03/20 10:00 06/22/20 10:47 Coreg PO 12.5 mg BID NELSON Administration Clonidine HCl 0.2 mg 06/04/20 06:00 06/22/20 13:32 Catapres PO 0.2 mg Q8HR NELSON Administration Glycopyrrolate 2 mg 06/09/20 14:00 06/22/20 13:32 Glycopyrrolate PO 2 mg TID NELSON Administration Hydralazine HCl 50 mg 06/03/20 09:00 06/22/20 13:32 Apresoline PO 50 mg Q8HR NELSON Administration Hydrophilic Ointment 1 applic 05/28/20 13:49 Vaseline Lip Therapy TP Q2HR PRN Dry Lips Insulin Glargine 10 units 06/08/20 22:00 06/21/20 21:30 Lantus SUB-Q 10 units QHS NELSON Administration Insulin Human Lispro 0 unit 05/29/20 18:00 06/22/20 13:31 Humalog SUB-Q 3 unit Q6H NELSON Administration Protocol Labetalol HCl 20 mg 06/03/20 09:00 06/08/20 23:51 Labetalol IV 20 mg Q4H PRN Administration HYPERTENSION Lansoprazole 30 mg 06/05/20 22:00 06/22/20 10:47 Prevacid Solutab FEEDTUBE 30 mg BID NELSON Administration Levetiracetam 500 mg 06/16/20 11:00 06/22/20 10:47 Keppra PO 500 mg BID NELSON Administration Metoclopramide HCl 10 mg 06/10/20 20:00 06/22/20 13:32 Reglan IV 10 mg Q6H NELSON Administration Multi-Ingred Cream/Lotion/Oil/Oint 1 applic 05/28/20 13:49 Artificial Tears Ophth Oint OU Q4HR PRN Dry Eye(s) Ondansetron HCl 4 mg 06/02/20 09:00 06/09/20 16:48 Zofran IV 4 mg Q8H PRN Administration Nausea And Vomiting Scopolamine 1 each 06/05/20 14:00 06/20/20 09:46 Transderm-Scop TD 1 each Q3D NELSON Administration Senna 17.6 mg 06/03/20 10:00 06/22/20 10:47 Senokot FEEDTUBE 17.6 mg BID NELSON Administration Simple Syrup 15 ml 05/29/20 13:39 Simple Syrup FEEDTUBE PRN PRN Hypoglycemia Simple Syrup 30 ml 05/29/20 13:39 Simple Syrup FEEDTUBE PRN PRN Hypoglycemia Sodium Bicarbonate 325 mg 05/29/20 13:39 Sodium Bicarbonate FEEDTUBE PRN PRN For Clogged Feeding Tube Sodium Bicarbonate 650 mg 06/06/20 10:00 06/22/20 10:46 Sodium Bicarbonate PO 650 mg BID NELSON Administration Sodium Chloride 10 ml 05/28/20 22:00 06/22/20 10:48 Sodium Chloride Flush Syringe 10 Ml IV 10 ml BID NELSON Administration Sodium Chloride 10 ml 05/28/20 19:08 06/16/20 17:50 Sodium Chloride Flush Syringe 10 Ml IV 10 ml PRN PRN Administration LINE FLUSH Nutrition/Malnutrition Assess - Dietary Evaluation Nutrition/Malnutrition Findings: Nutrition Notes Start: 05/29/20 11:45 Freq: Status: Active Protocol: Document 06/18/20 10:19 LP (Rec: 06/18/20 10:27 LP [id number]) Nutrition Notes Initial or Follow up Reassessment Current Diagnosis Acute Kidney Injury,Diabetes, Heart Failure,Respiratory Failure Other Pertinent Diagnosis COVID-19 (+) Current Diet Nepro at 40ml/hr Labs/Tests Reviewed Pertinent Medications Reviewed Height 5 ft 6 in Weight 123 kg [place] Body Weight (kg) 59.09 BMI 43.7 Subjective/Other Information Pt tolerating TF at goal rate. KNOBBER recs NPO Percent of energy/protein needs met: 100%/86% Burn Absent Trauma Absent GI Symptoms Other Current % PO Negligible Minimum of two criteria No physical signs of malnutrition #1 Nutrition Diagnosis Inadequate oral intake Diagnosis Progress(for reassessment Continues documentation) Is patient on ventilator? No Is Patient Ambulatory and/or Out of Bed No REE-([facility]-confined to bed) 2172.576 Kcal/Kg value to use for calculation 13 Approximate Energy Requirements Using 1599 kcal/Kg Calculation Used for Recommendations Kcal/kg Additional Notes Protein needs are 91-109g (1-1 .2g/kg 91kg adjusted wt) Fluid needs 1ml/kcal Nutrition Intervention Change Diet Order: TF Nutrition Support: Continue Nepro at 40ml/hr 200ml q4h per MD Kcal 1,728 Protein (gm) 78 Fluid (mL) 698 Goal #1 TF tolerance Goal #2 TF to meet at least 75% energy and pro needs Anticipated Discharge Needs: Unable to determine at this becky Follow-Up By: 06/23/20 Additional Comments Follow for stable TF
[2020-06-22] MEDS: INSULIN GLARGINE 100 UNITS/ML SUB-Q SCH (21:37)
[2020-06-23] MEDS: METOCLOPRAMIDE 10 MG/2 ML INJ IV SCH ×4 (02:24→21:54)
[2020-06-23] MEDS: cloNIDine 0.2 MG TAB PO SCH ×2 (05:22→22:07)
[2020-06-23] MEDS: hydrALAZINE 25 MG TAB PO SCH ×3 (05:22→22:14)
[2020-06-23] MEDS: INSULIN LISPRO 100 UNIT/ML VIAL 3 mL SUB-Q SCH ×3 (05:50→17:09)
[2020-06-23 06:30] LABS: Basophils # (Auto) 0.1 K/mm3 (0.0-0.1); Basophils % (Auto) 0.9 % (0.0-1.8); Eosinophils # (Auto) 0.3 K/mm3 (0.0-0.4); Eosinophils % (Auto) 3.7 % (0.0-4.3); Hematocrit 23.2 % (30.3-42.9); Hemoglobin 7.4 gm/dl (10.1-14.3); Lymphocytes % (Auto) 14.4 % (13.4-35.0); Mean Corpuscular HGB Conc 32 % (30-34); Mean Corpuscular Volume 90 fl (79-97); Monocytes # (Auto) 0.8 K/mm3 (0.0-0.8); Monocytes % (Auto) 11.2 % (0.0-7.3); Platelet Count 359 K/mm3 (140-440); Red Blood Count 2.58 M/mm3 (3.65-5.03)
[2020-06-23 06:39] LABS: Calcium 9.4 mg/dL (8.4-10.2)
[2020-06-23] MEDS: GLYCOPYRROLATE 2 MG TAB PO SCH ×3 (08:03→21:55)
[2020-06-23] MEDS: LANSOPRAZOLE 30 MG SOLUTAB FEEDTUBE SCH ×2 (09:28→21:57)
[2020-06-23] MEDS: SODIUM BICARBONATE 650 MG TAB PO SCH ×2 (09:28→22:07)
[2020-06-23] MEDS: APIXABAN 5 MG TAB PO SCH ×2 (09:29→21:56)
[2020-06-23] MEDS: levETIRAcetam 500 MG/5 ML ORAL LIQD PO SCH ×2 (09:29→21:56)
[2020-06-23] MEDS: SENNOSIDES ORAL LIQD 8.8 MG/5 ML ORAL LIQD FEEDTUBE SCH ×2 (09:30→21:57)
[2020-06-23] MEDS: amLODIPine 10 MG TAB PO SCH (09:31)
[2020-06-23] MEDS: carvediloL 12.5 MG TAB PO SCH ×2 (09:32→22:07)
[2020-06-23] MEDS: SCOPOLAMINE TRANSDERMAL PATCH 72 HR TD SCH (09:33)
--- NOTE | 2020-06-23 10:54 | Progress Note ---
Assessment and Plan - Patient Problems (1) Acute kidney injury (AVANI) with acute tubular necrosis (ATN) Current Visit: Yes Status: Acute Plan to address problem: Kidney function had been improving. Patient is nonoliguric. Kidney function is now significantly worse. Patient had episodes of hypotension yesterday. Suspect prerenal azotemia. Decrease hypotensive medications. Follow-up electrolytes and renal function (2) Hypernatremia Current Visit: Yes Status: Acute Plan to address problem: Sodium has improved to normal. Continue free water intake orally (3) Acute hypoxemic respiratory failure Current Visit: Yes Status: Acute Plan to address problem: Being managed by pulmonary. S/p Extubation 06/12. Remains stable. Discharge planning by primary attending (4) Cardiac arrest Current Visit: Yes Status: Acute Plan to address problem: Patient is improving (5) Metabolic encephalopathy Current Visit: Yes Status: Acute Plan to address problem: Mental status is improving (6) Pneumonia due to COVID-19 virus Current Visit: Yes Status: Acute Plan to address problem: Patient has completed 5 days of Remdesevir. Completed course of steroids. Patient is improving (7) Cardiomyopathy Current Visit: No Status: Acute Qualifiers: Cardiomyopathy type: unspecified Qualified Code(s): I42.9 - Cardiomyopathy, unspecified Plan to address problem: Patient has peripheral edema and chest x-ray also suggests some vascular congestion. Follow-up electrolytes and renal function and if improves, will start Lasix p.o. (8) Hyperglycemia due to type 2 diabetes mellitus Current Visit: No Status: Acute Qualifiers: Diabetes mellitus intermediate card tender insulin use: without intermediate card tender use Qualified Code(s): E11.65 - Type 2 diabetes mellitus with hyperglycemia Plan to address problem: Blood sugar management by primary attending Subjective Date of service: 06/23/20 Principal diagnosis: Ac hypoxemic resp failure; COVID-19; pneumonia; CHF; Pulm HTN; OHS; DM II Interval history: Patient seen lying in bed. She has no complaints. She is on oxygen via nasal cannula. She is not dyspneic at rest. Objective - Exam Narrative Exam: Obese middle-aged female lying in bed in no acute distress HEENT: NCAT, pink oral mucous membrane Neck: Supple, no venous distention CVS: S1S2 RRR with no murmur, rub or gallop Chest: Coarse breath sounds with bilateral rhonchi Abdomen: Obese, soft, nontender, no organomegaly, bowel sounds are present Extremities: 2+ pitting edema worsening thighs Genitourinary deferred Skin warm and dry Neuro: Awake, alert - Vital Signs Vital signs: Vital Signs - 12hr 06/23/20 06/23/20 06/23/20 00:00 04:21 05:52 Temperature 98.2 F Pulse Rate 78 70 78 Respiratory 22 20 20 Rate Blood Pressure Blood Pressure 150/63 [Left] O2 Sat by Pulse 98 100 94 Oximetry 06/23/20 06/23/20 06/23/20 08:00 09:31 09:32 Temperature Pulse Rate 78 78 Respiratory Rate Blood Pressure 150/63 150/63 Blood Pressure [Left] O2 Sat by Pulse 97 Oximetry - Lab 06/23/20 05:49 06/23/20 05:49 Most recent lab results ABG pH 7.206 (7.320-7.450) L 06/22/20 15:27 ABG pCO2 48.2 mm Hg 06/20/20 16:35 ABG pO2 59.6 mm Hg (80.0-90.0) L 06/20/20 16:35 ABG HCO3 28.7 mmol/L (20.0-26.0) H 06/20/20 16:35 ABG O2 Saturation 93.5 % (95.0-99.0) L 06/20/20 16:35 Calcium 9.4 mg/dL (8.4-10.2) 06/23/20 05:49 Urine Creatinine 82.2 mg/dL (0.1-20.0) H 06/06/20 04:00 Urine Sodium 20 mmol/L 06/06/20 04:00 Urine Total Protein 196 mg/dL (5-11.8) H 06/06/20 04:00 Medications & Allergies - Medications Allergies/Adverse Reactions: Allergies No Known Allergies Allergy (Verified 01/21/20 12:28) Home Medications: Home Medications Medication Instructions Recorded Confirmed Last Taken Type AtorvaSTATin [Lipitor] 20 mg PO QHS 05/12/20 05/29/20 Unknown History lisinopriL [Zestril TAB] 40 mg PO QDAY 05/12/20 05/29/20 Unknown History metFORMIN [Glucophage] 850 mg PO BID 05/12/20 05/29/20 Unknown History Acetaminophen [Acetaminophen TAB] 650 mg PO Q4H PRN tablet 05/13/20 05/29/20 Unknown Rx Dicyclomine [Bentyl] 20 mg PO BID #20 tablet 05/13/20 05/29/20 Unknown Rx Famotidine [Pepcid] 20 mg PO BID #30 tablet 05/13/20 05/29/20 Unknown Rx carvediloL [Coreg] 6.25 mg PO BID #60 05/13/20 05/29/20 Unknown Rx Active Medications: Generic Name Dose Route Start Last Admin Trade Name Freq PRN Reason Stop Dose Admin Acetaminophen 650 mg 06/09/20 10:57 06/22/20 11:58 Tylenol FEEDTUBE 650 mg Q6H PRN Administration Fever >101 Amlodipine Besylate 10 mg 06/02/20 11:00 06/23/20 09:31 Amlodipine PO 10 mg DAILY NELSON Administration Lipase/Protease/Amylase 1 each 05/29/20 13:39 Pancreaze 10,500 Unit FEEDTUBE PRN PRN For Clogged Feeding Tube Apixaban 5 mg 06/19/20 22:00 06/23/20 09:29 Eliquis PO 06/26/20 10:01 5 mg Q12HR NELSON Administration Protocol Carvedilol 12.5 mg 06/03/20 10:00 06/23/20 09:32 Coreg PO 12.5 mg BID NESLON Administration Clonidine HCl 0.2 mg 06/23/20 22:00 Catapres PO Q12HR NELSON Glycopyrrolate 2 mg 06/09/20 14:00 06/23/20 08:03 Glycopyrrolate PO 2 mg TID NELSON Administration Hydralazine HCl 50 mg 06/03/20 09:00 06/23/20 05:22 Apresoline PO 50 mg Q8HR NELSON Administration Hydrophilic Ointment 1 applic 05/28/20 13:49 Vaseline Lip Therapy TP Q2HR PRN Dry Lips Insulin Glargine 10 units 06/08/20 22:00 06/22/20 21:37 Lantus SUB-Q 10 units QHS NELSON Administration Insulin Human Lispro 0 unit 05/29/20 18:00 06/23/20 05:50 Humalog SUB-Q 4 unit Q6H NELSON Administration Protocol Labetalol HCl 20 mg 06/03/20 09:00 06/08/20 23:51 Labetalol IV 20 mg Q4H PRN Administration HYPERTENSION Lansoprazole 30 mg 06/05/20 22:00 06/23/20 09:28 Prevacid Solutab FEEDTUBE 30 mg BID NELSON Administration Levetiracetam 500 mg 06/16/20 11:00 06/23/20 09:29 Keppra PO 500 mg BID NELSON Administration Metoclopramide HCl 10 mg 06/10/20 20:00 06/23/20 02:24 Reglan IV 10 mg Q6H NELSON Administration Multi-Ingred Cream/Lotion/Oil/Oint 1 applic 05/28/20 13:49 Artificial Tears Ophth Oint OU Q4HR PRN Dry Eye(s) Ondansetron HCl 4 mg 06/02/20 09:00 06/09/20 16:48 Zofran IV 4 mg Q8H PRN Administration Nausea And Vomiting Scopolamine 1 each 06/05/20 14:00 06/23/20 09:33 Transderm-Scop TD 1 each Q3D NELSON Administration Senna 17.6 mg 06/03/20 10:00 06/23/20 09:30 Senokot FEEDTUBE 17.6 mg BID NELSON Administration Simple Syrup 15 ml 05/29/20 13:39 Simple Syrup FEEDTUBE PRN PRN Hypoglycemia Simple Syrup 30 ml 05/29/20 13:39 Simple Syrup FEEDTUBE PRN PRN Hypoglycemia Sodium Bicarbonate 325 mg 05/29/20 13:39 Sodium Bicarbonate FEEDTUBE PRN PRN For Clogged Feeding Tube Sodium Bicarbonate 650 mg 06/06/20 10:00 06/23/20 09:28 Sodium Bicarbonate PO 650 mg BID NELSON Administration Sodium Chloride 10 ml 05/28/20 22:00 06/23/20 09:32 Sodium Chloride Flush Syringe 10 Ml IV 10 ml BID NELSON Administration Sodium Chloride 10 ml 05/28/20 19:08 06/16/20 17:50 Sodium Chloride Flush Syringe 10 Ml IV 10 ml PRN PRN Administration LINE FLUSH
--- NOTE | 2020-06-23 12:18 | Progress Note ---
Assessment and Plan Acute hypoxemic respiratory failure on MVS Coronavirus-19 infection. Bilateral pulmonary infiltrates, bilateral pneumonia plus likely element of Pulmonary edema. Bilateral pulmonary edema. Bilateral pleural effusions. VTE (Upper extremity DVT) History of congestive heart failure. Morbid obesity. History of pulmonary hypertension. History of hypertension. Diabetes. Obesity hypoventilation syndrome. Elevated serum inflammatory markers to include D-dimers and LDH levels. Hyperkalemia at presentation. Metabolic acidosis. Oropharyngeal dysphagia. - ABG reviewed and addressed - watch closely on telemetry as at risk for acute decompensation - continue full anticoagulation with Eliquis - continue fall precautions - continue BIPAP scheduled qhs with prn daytime use - continue care as below otherwise; - advance diet per [employer] team - continue Robinul and scopolamine for secretions control - continue COVID-19 isolation per protocol - strict I's and O's - continue to wean supplemental oxygen for target O2 sat's > 90% acutely - continue aspiration precautions - continue lung protective strategies - continue bronchodilators with pulmonary hygiene per RT - wean per pulmonary driven protocols otherwise - continue accuchecks with glycemic control per SSI for target BG <180 mg/dL; avoid hypoglycemia - continue to avoid benzodiazepine's, reduce the possibility of delirium - azotemia per nephrology - continue to avoid nephrotoxins and renally dose all medications - completed AB's per ID rec's - continue Reglan for GI motility issues - prn analgesia per pain score - Maintenance of sleep-wake cycle, avoid delirium - continue enteral nutritional support at goal rate as tolerated - G.I. & VTE prophylaxis - PT/OT/ROM exercises - continue mobility protocols for pressure ulcer prophylaxis - Monitor hemodynamics closely - continue other care per attending / other consultants - discharge planning ongoing concurrently .... Re-evaluate in am & prn Subjective Date of service: 06/23/20 Principal diagnosis: Ac hypoxemic resp failure; COVID-19; pneumonia; CHF; Pulm HTN; OHS; DM II Interval history: Patient is seen today for: Ac hypoxemic resp failure; Coronavirus-19 infection; pneumonia; Pulmonary edema; Bilateral pleural effusions; CHF; Morbid obesity; pulmonary hypertension; OHS; DM II Seen and examined at bedside; 24hour events reviewed; nursing and respiratory care staff consulted; no adverse overnight events reported to me; resting peacefully in bed; still delirious; on supplemental oxygen and tolerating BIPAP Objective Vital Signs - 12hr 06/23/20 06/23/20 06/23/20 04:21 05:52 08:00 Temperature 98.2 F Pulse Rate 70 78 Respiratory 20 20 Rate Blood Pressure Blood Pressure 150/63 [Left] O2 Sat by Pulse 100 94 97 Oximetry 06/23/20 06/23/20 06/23/20 09:31 09:32 10:00 Temperature Pulse Rate 78 78 Respiratory 18 Rate Blood Pressure 150/63 150/63 Blood Pressure [Left] O2 Sat by Pulse 92 Oximetry Constitutional: appears uncomfortable, other (elderly looking obese female on HFNC with mildly increased respiratory effort at rest) Eyes: non-icteric ENT: oropharynx dry, other (extubated) Neck: supple, no lymphadenopathy, no JVD, other (large neck circumference) Effort: mildly labored Ascultation: Bilateral: diminished breath sounds, rhonchi (scant) Percussion: Bilateral: not dull Cardiovascular: regular rate and rhythm, other (S1,S2) Gastrointestinal: normoactive bowel sounds, soft, non-tender, non-distended Integumentary: normal Extremities: no cyanosis, no edema, pink and warm, pulses normal, no ischemia or petechiae Neurologic: non-focal exam (grossly), pupils equal and round, other (lethargic) Psychiatric: other (unable to assess re: AMS) CBC and BMP: 07/01/20 06:01 07/02/20 04:23 ABG, PT/INR, D-dimer: ABG ABG pH 7.206 (7.320-7.450) L 06/22/20 15:27 POC ABG pCO2 79.9 mmHg (32.0-48.0) H 06/22/20 15:27 ABG pCO2 48.2 mm Hg 06/20/20 16:35 POC ABG pO2 92.3 mmHg (83-108) 06/22/20 15:27 ABG pO2 59.6 mm Hg (80.0-90.0) L 06/20/20 16:35 POC ABG HCO3 31.0 06/22/20 15:27 ABG O2 Saturation 93.5 % (95.0-99.0) L 06/20/20 16:35 PT/INR, D-dimer PT 14.2 Sec. (12.2-14.9) 05/29/20 15:10 INR 1.08 (0.87-1.13) 05/29/20 15:10 D-Dimer 414.52 ng/mlDDU (0-234) H 06/04/20 04:19 Abnormal lab findings: Abnormal Labs 05/28/20 05/28/20 05/28/20 13:29 13:47 13:47 WBC RBC Hgb Hct RDW 15.3 H Lymph % (Auto) [place] % (Auto) Eos % (Auto) Lymph # [place] # Seg Neutrophils % Seg Neuts % (Manual) Lymphocytes % (Manual) Seg Neutrophils # Seg Neutrophils # Man Lymphocytes # (Manual) Monocytes # (Manual) D-Dimer Heparin Anti-Xa Level ABG pH POC ABG pCO2 ABG pO2 ABG HCO3 ABG O2 Saturation ABG Base Excess ABG Hemoglobin VBG pH Oxyhemoglobin Sodium Potassium 6.6 H* Chloride 109.2 H Carbon Dioxide 17 L BUN 29 H Creatinine 1.3 H Glucose 265 H POC Glucose 248 H Lactic Acid Calcium 8.1 L AST 63 H Alkaline Phosphatase Lactate Dehydrogenase Total Creatine Kinase 301 H CK-MB (CK-2) 4.3 H C-Reactive Protein Total Protein 5.4 L Albumin 2.6 L Urine WBC (Auto) Urine Creatinine Urine Total Protein Coronavirus (PCR) 05/28/20 05/28/20 05/28/20 13:47 13:47 14:46 WBC RBC Hgb Hct RDW Lymph % (Auto) [place] % (Auto) Eos % (Auto) Lymph # [place] # Seg Neutrophils % Seg Neuts % (Manual) Lymphocytes % (Manual) Seg Neutrophils # Seg Neutrophils # Man Lymphocytes # (Manual) Monocytes # (Manual) D-Dimer Heparin Anti-Xa Level ABG pH POC ABG pCO2 ABG pO2 ABG HCO3 ABG O2 Saturation ABG Base Excess ABG Hemoglobin VBG pH 7.152 L* Oxyhemoglobin Sodium Potassium 7.2 H* Chloride Carbon Dioxide BUN Creatinine Glucose POC Glucose Lactic Acid 3.40 H* Calcium AST Alkaline Phosphatase Lactate Dehydrogenase Total Creatine Kinase CK-MB (CK-2) C-Reactive Protein Total Protein Albumin Urine WBC (Auto) Urine Creatinine Urine Total Protein Coronavirus (PCR) 05/28/20 05/28/20 05/28/20 15:33 15:33 15:51 WBC RBC Hgb Hct RDW Lymph % (Auto) [place] % (Auto) Eos % (Auto) Lymph # [place] # Seg Neutrophils % Seg Neuts % (Manual) Lymphocytes % (Manual) Seg Neutrophils # Seg Neutrophils # Man Lymphocytes # (Manual) Monocytes # (Manual) D-Dimer 8780.43 H Heparin Anti-Xa Level ABG pH 7.284 L POC ABG pCO2 ABG pO2 273.0 H ABG HCO3 ABG O2 Saturation 99.4 H ABG Base Excess -6.1 L ABG Hemoglobin 17.2 H VBG pH Oxyhemoglobin Sodium Potassium Chloride Carbon Dioxide BUN Creatinine Glucose 152 H POC Glucose Lactic Acid Calcium AST Alkaline Phosphatase Lactate Dehydrogenase 365 H Total Creatine Kinase CK-MB (CK-2) C-Reactive Protein Total Protein Albumin Urine WBC (Auto) Urine Creatinine Urine Total Protein Coronavirus (PCR) 05/28/20 05/28/20 05/28/20 16:30 20:41 23:20 WBC RBC Hgb Hct RDW Lymph % (Auto) [place] % (Auto) Eos % (Auto) Lymph # [place] # Seg Neutrophils % Seg Neuts % (Manual) Lymphocytes % (Manual) Seg Neutrophils # Seg Neutrophils # Man Lymphocytes # (Manual) Monocytes # (Manual) D-Dimer Heparin Anti-Xa Level ABG pH POC ABG pCO2 ABG pO2 ABG HCO3 ABG O2 Saturation ABG Base Excess ABG Hemoglobin VBG pH Oxyhemoglobin Sodium Potassium Chloride Carbon Dioxide BUN Creatinine Glucose POC Glucose 225 H 224 H Lactic Acid Calcium AST Alkaline Phosphatase Lactate Dehydrogenase Total Creatine Kinase CK-MB (CK-2) C-Reactive Protein Total Protein Albumin Urine WBC (Auto) 17.0 H Urine Creatinine Urine Total Protein Coronavirus (PCR) 05/28/20 05/29/20 05/29/20 Unknown 04:35 04:43 WBC RBC 3.48 L Hgb 9.8 L Hct 29.4 L RDW 16.0 H Lymph % (Auto) 7.4 L [place] % (Auto) Eos % (Auto) Lymph # 0.7 L [place] # Seg Neutrophils % 89.1 H Seg Neuts % (Manual) Lymphocytes % (Manual) Seg Neutrophils # 8.1 H Seg Neutrophils # Man Lymphocytes # (Manual) Monocytes # (Manual) D-Dimer Heparin Anti-Xa Level ABG pH POC ABG pCO2 ABG pO2 ABG HCO3 19.3 L ABG O2 Saturation ABG Base Excess -4.5 L ABG Hemoglobin 9.7 L VBG pH Oxyhemoglobin Sodium Potassium Chloride Carbon Dioxide BUN Creatinine Glucose POC Glucose Lactic Acid Calcium AST Alkaline Phosphatase Lactate Dehydrogenase Total Creatine Kinase CK-MB (CK-2) C-Reactive Protein Total Protein Albumin Urine WBC (Auto) Urine Creatinine Urine Total Protein Coronavirus (PCR) Positive A 05/29/20 05/29/20 05/29/20 04:43 15:10 17:17 WBC RBC Hgb 9.3 L Hct 28.7 L RDW Lymph % (Auto) [place] % (Auto) Eos % (Auto) Lymph # [place] # Seg Neutrophils % Seg Neuts % (Manual) Lymphocytes % (Manual) Seg Neutrophils # Seg Neutrophils # Man Lymphocytes # (Manual) Monocytes # (Manual) D-Dimer Heparin Anti-Xa Level ABG pH POC ABG pCO2 ABG pO2 ABG HCO3 ABG O2 Saturation ABG Base Excess ABG Hemoglobin VBG pH Oxyhemoglobin Sodium Potassium Chloride 110.2 H Carbon Dioxide 18 L BUN 32 H Creatinine 1.4 H Glucose 180 H POC Glucose 147 H Lactic Acid Calcium AST Alkaline Phosphatase Lactate Dehydrogenase Total Creatine Kinase CK-MB (CK-2) C-Reactive Protein Total Protein Albumin Urine WBC (Auto) Urine Creatinine Urine Total Protein Coronavirus (PCR) 05/30/20 05/30/20 05/30/20 00:08 00:12 04:15 WBC RBC Hgb Hct RDW Lymph % (Auto) [place] % (Auto) Eos % (Auto) Lymph # [place] # Seg Neutrophils % Seg Neuts % (Manual) Lymphocytes % (Manual) Seg Neutrophils # Seg Neutrophils # Man Lymphocytes # (Manual) Monocytes # (Manual) D-Dimer Heparin Anti-Xa Level 0.71 H ABG pH 7.460 H POC ABG pCO2 ABG pO2 106.0 H ABG HCO3 18.9 L ABG O2 Saturation ABG Base Excess -4.4 L ABG Hemoglobin 6.8 L VBG pH Oxyhemoglobin Sodium Potassium Chloride Carbon Dioxide BUN Creatinine Glucose POC Glucose 195 H Lactic Acid Calcium AST Alkaline Phosphatase Lactate Dehydrogenase Total Creatine Kinase CK-MB (CK-2) C-Reactive Protein Total Protein Albumin Urine WBC (Auto) Urine Creatinine Urine Total Protein Coronavirus (PCR) 05/30/20 05/30/20 05/30/20 06:07 08:37 12:33 WBC RBC Hgb Hct RDW Lymph % (Auto) [place] % (Auto) Eos % (Auto) Lymph # [place] # Seg Neutrophils % Seg Neuts % (Manual) Lymphocytes % (Manual) Seg Neutrophils # Seg Neutrophils # Man Lymphocytes # (Manual) Monocytes # (Manual) D-Dimer Heparin Anti-Xa Level 0.85 H ABG pH POC ABG pCO2 ABG pO2 ABG HCO3 ABG O2 Saturation ABG Base Excess ABG Hemoglobin VBG pH Oxyhemoglobin Sodium Potassium Chloride Carbon Dioxide BUN Creatinine Glucose POC Glucose 182 H 187 H Lactic Acid Calcium AST Alkaline Phosphatase Lactate Dehydrogenase Total Creatine Kinase CK-MB (CK-2) C-Reactive Protein Total Protein Albumin Urine WBC (Auto) Urine Creatinine Urine Total Protein Coronavirus (PCR) 05/30/20 05/30/20 05/30/20 15:58 17:57 23:36 WBC RBC Hgb Hct RDW Lymph % (Auto) [place] % (Auto) Eos % (Auto) Lymph # [place] # Seg Neutrophils % Seg Neuts % (Manual) Lymphocytes % (Manual) Seg Neutrophils # Seg Neutrophils # Man Lymphocytes # (Manual) Monocytes # (Manual) D-Dimer Heparin Anti-Xa Level 1.03 H ABG pH POC ABG pCO2 ABG pO2 ABG HCO3 ABG O2 Saturation ABG Base Excess ABG Hemoglobin VBG pH Oxyhemoglobin Sodium Potassium Chloride Carbon Dioxide BUN Creatinine Glucose POC Glucose 208 H 185 H Lactic Acid Calcium AST Alkaline Phosphatase Lactate Dehydrogenase Total Creatine Kinase CK-MB (CK-2) C-Reactive Protein Total Protein Albumin Urine WBC (Auto) Urine Creatinine Urine Total Protein Coronavirus (PCR) 05/31/20 05/31/20 05/31/20 02:16 03:55 06:16 WBC RBC Hgb 9.2 L Hct 27.5 L RDW Lymph % (Auto) [place] % (Auto) Eos % (Auto) Lymph # [place] # Seg Neutrophils % Seg Neuts % (Manual) Lymphocytes % (Manual) Seg Neutrophils # Seg Neutrophils # Man Lymphocytes # (Manual) Monocytes # (Manual) D-Dimer Heparin Anti-Xa Level ABG pH POC ABG pCO2 ABG pO2 94.7 H ABG HCO3 18.6 L ABG O2 Saturation ABG Base Excess -5.5 L ABG Hemoglobin 7.9 L VBG pH Oxyhemoglobin Sodium Potassium Chloride Carbon Dioxide BUN Creatinine Glucose POC Glucose 160 H Lactic Acid Calcium AST Alkaline Phosphatase Lactate Dehydrogenase Total Creatine Kinase CK-MB (CK-2) C-Reactive Protein Total Protein Albumin Urine WBC (Auto) Urine Creatinine Urine Total Protein Coronavirus (PCR) 05/31/20 05/31/20 05/31/20 12:20 13:03 18:13 WBC RBC Hgb Hct RDW Lymph % (Auto) [place] % (Auto) Eos % (Auto) Lymph # [place] # Seg Neutrophils % Seg Neuts % (Manual) Lymphocytes % (Manual) Seg Neutrophils # Seg Neutrophils # Man Lymphocytes # (Manual) Monocytes # (Manual) D-Dimer Heparin Anti-Xa Level ABG pH POC ABG pCO2 ABG pO2 ABG HCO3 ABG O2 Saturation ABG Base Excess ABG Hemoglobin VBG pH Oxyhemoglobin Sodium Potassium Chloride Carbon Dioxide 18 L BUN 48 H Creatinine 1.6 H Glucose 115 H POC Glucose 128 H 159 H Lactic Acid Calcium 8.3 L AST Alkaline Phosphatase Lactate Dehydrogenase Total Creatine Kinase CK-MB (CK-2) C-Reactive Protein Total Protein 5.4 L Albumin 2.4 L Urine WBC (Auto) Urine Creatinine Urine Total Protein Coronavirus (PCR) 05/31/20 06/01/20 06/01/20 23:51 04:00 05:48 WBC RBC Hgb Hct RDW Lymph % (Auto) [place] % (Auto) Eos % (Auto) Lymph # [place] # Seg Neutrophils % Seg Neuts % (Manual) Lymphocytes % (Manual) Seg Neutrophils # Seg Neutrophils # Man Lymphocytes # (Manual) Monocytes # (Manual) D-Dimer Heparin Anti-Xa Level ABG pH POC ABG pCO2 ABG pO2 109.8 H ABG HCO3 18.8 L ABG O2 Saturation ABG Base Excess -5.9 L ABG Hemoglobin 7.8 L VBG pH Oxyhemoglobin Sodium Potassium Chloride Carbon Dioxide BUN Creatinine Glucose POC Glucose 171 H 133 H Lactic Acid Calcium AST Alkaline Phosphatase Lactate Dehydrogenase Total Creatine Kinase CK-MB (CK-2) C-Reactive Protein Total Protein Albumin Urine WBC (Auto) Urine Creatinine Urine Total Protein Coronavirus (PCR) 06/01/20 06/01/20 06/02/20 12:28 17:29 00:08 WBC RBC Hgb Hct RDW Lymph % (Auto) [place] % (Auto) Eos % (Auto) Lymph # [place] # Seg Neutrophils % Seg Neuts % (Manual) Lymphocytes % (Manual) Seg Neutrophils # Seg Neutrophils # Man Lymphocytes # (Manual) Monocytes # (Manual) D-Dimer Heparin Anti-Xa Level ABG pH POC ABG pCO2 ABG pO2 ABG HCO3 ABG O2 Saturation ABG Base Excess ABG Hemoglobin VBG pH Oxyhemoglobin Sodium Potassium Chloride Carbon Dioxide BUN Creatinine Glucose POC Glucose 199 H 209 H 162 H Lactic Acid Calcium AST Alkaline Phosphatase Lactate Dehydrogenase Total Creatine Kinase CK-MB (CK-2) C-Reactive Protein Total Protein Albumin Urine WBC (Auto) Urine Creatinine Urine Total Protein Coronavirus (PCR) 06/02/20 06/02/20 06/02/20 04:20 04:20 04:44 WBC RBC Hgb 10.0 L Hct RDW Lymph % (Auto) [place] % (Auto) Eos % (Auto) Lymph # [place] # Seg Neutrophils % Seg Neuts % (Manual) Lymphocytes % (Manual) Seg Neutrophils # Seg Neutrophils # Man Lymphocytes # (Manual) Monocytes # (Manual) D-Dimer Heparin Anti-Xa Level 0.10 L ABG pH POC ABG pCO2 ABG pO2 150.6 H ABG HCO3 ABG O2 Saturation ABG Base Excess -4.1 L ABG Hemoglobin 11.8 L VBG pH Oxyhemoglobin Sodium Potassium Chloride Carbon Dioxide BUN Creatinine Glucose POC Glucose Lactic Acid Calcium AST Alkaline Phosphatase Lactate Dehydrogenase Total Creatine Kinase CK-MB (CK-2) C-Reactive Protein Total Protein Albumin Urine WBC (Auto) Urine Creatinine Urine Total Protein Coronavirus (PCR) 06/02/20 06/02/20 06/02/20 05:53 12:04 13:49 WBC RBC Hgb Hct RDW Lymph % (Auto) [place] % (Auto) Eos % (Auto) Lymph # [place] # Seg Neutrophils % Seg Neuts % (Manual) Lymphocytes % (Manual) Seg Neutrophils # Seg Neutrophils # Man Lymphocytes # (Manual) Monocytes # (Manual) D-Dimer Heparin Anti-Xa Level 0.28 L ABG pH POC ABG pCO2 ABG pO2 ABG HCO3 ABG O2 Saturation ABG Base Excess ABG Hemoglobin VBG pH Oxyhemoglobin Sodium Potassium Chloride Carbon Dioxide BUN Creatinine Glucose POC Glucose 149 H 220 H Lactic Acid Calcium AST Alkaline Phosphatase Lactate Dehydrogenase Total Creatine Kinase CK-MB (CK-2) C-Reactive Protein Total Protein Albumin Urine WBC (Auto) Urine Creatinine Urine Total Protein Coronavirus (PCR) 06/02/20 06/02/20 06/03/20 13:49 18:31 00:42 WBC RBC Hgb Hct RDW Lymph % (Auto) [place] % (Auto) Eos % (Auto) Lymph # [place] # Seg Neutrophils % Seg Neuts % (Manual) Lymphocytes % (Manual) Seg Neutrophils # Seg Neutrophils # Man Lymphocytes # (Manual) Monocytes # (Manual) D-Dimer 769.68 H Heparin Anti-Xa Level ABG pH POC ABG pCO2 ABG pO2 ABG HCO3 ABG O2 Saturation ABG Base Excess ABG Hemoglobin VBG pH Oxyhemoglobin Sodium Potassium Chloride Carbon Dioxide BUN Creatinine Glucose POC Glucose 225 H 212 H Lactic Acid Calcium AST Alkaline Phosphatase Lactate Dehydrogenase Total Creatine Kinase CK-MB (CK-2) C-Reactive Protein Total Protein Albumin Urine WBC (Auto) Urine Creatinine Urine Total Protein Coronavirus (PCR) 06/03/20 06/03/20 06/03/20 05:16 05:16 05:25 WBC 11.4 H RBC Hgb Hct RDW 16.4 H Lymph % (Auto) [place] % (Auto) Eos % (Auto) Lymph # [place] # Seg Neutrophils % Seg Neuts % (Manual) Lymphocytes % (Manual) Seg Neutrophils # Seg Neutrophils # Man Lymphocytes # (Manual) Monocytes # (Manual) D-Dimer Heparin Anti-Xa Level ABG pH POC ABG pCO2 ABG pO2 160.9 H ABG HCO3 19.4 L ABG O2 Saturation ABG Base Excess -4.9 L ABG Hemoglobin 7.0 L VBG pH Oxyhemoglobin Sodium Potassium Chloride Carbon Dioxide 18 L BUN 65 H Creatinine 2.0 H Glucose 175 H POC Glucose Lactic Acid Calcium 8.0 L AST Alkaline Phosphatase Lactate Dehydrogenase Total Creatine Kinase CK-MB (CK-2) C-Reactive Protein Total Protein 5.5 L Albumin 2.2 L Urine WBC (Auto) Urine Creatinine Urine Total Protein Coronavirus (PCR) 06/03/20 06/03/20 06/03/20 06:07 11:58 18:24 WBC RBC Hgb Hct RDW Lymph % (Auto) [place] % (Auto) Eos % (Auto) Lymph # [place] # Seg Neutrophils % Seg Neuts % (Manual) Lymphocytes % (Manual) Seg Neutrophils # Seg Neutrophils # Man Lymphocytes # (Manual) Monocytes # (Manual) D-Dimer Heparin Anti-Xa Level ABG pH POC ABG pCO2 ABG pO2 ABG HCO3 ABG O2 Saturation ABG Base Excess ABG Hemoglobin VBG pH Oxyhemoglobin Sodium Potassium Chloride Carbon Dioxide BUN Creatinine Glucose POC Glucose 177 H 163 H 211 H Lactic Acid Calcium AST Alkaline Phosphatase Lactate Dehydrogenase Total Creatine Kinase CK-MB (CK-2) C-Reactive Protein Total Protein Albumin Urine WBC (Auto) Urine Creatinine Urine Total Protein Coronavirus (PCR) 06/03/20 06/03/20 06/04/20 21:50 Unknown 00:26 WBC RBC Hgb Hct RDW Lymph % (Auto) [place] % (Auto) Eos % (Auto) Lymph # [place] # Seg Neutrophils % Seg Neuts % (Manual) Lymphocytes % (Manual) Seg Neutrophils # Seg Neutrophils # Man Lymphocytes # (Manual) Monocytes # (Manual) D-Dimer Heparin Anti-Xa Level ABG pH POC ABG pCO2 ABG pO2 ABG HCO3 ABG O2 Saturation ABG Base Excess ABG Hemoglobin VBG pH Oxyhemoglobin Sodium 135 L Potassium Chloride Carbon Dioxide 18 L BUN Creatinine Glucose POC Glucose 241 H Lactic Acid Calcium AST Alkaline Phosphatase Lactate Dehydrogenase Total Creatine Kinase CK-MB (CK-2) C-Reactive Protein Total Protein Albumin Urine WBC (Auto) 11.0 H Urine Creatinine Urine Total Protein Coronavirus (PCR) 06/04/20 06/04/20 06/04/20 03:35 04:19 04:19 WBC RBC 3.15 L Hgb 8.9 L Hct 26.8 L D RDW 15.9 H Lymph % (Auto) 6.0 L [place] % (Auto) Eos % (Auto) Lymph # 0.6 L [place] # Seg Neutrophils % 86.6 H Seg Neuts % (Manual) Lymphocytes % (Manual) Seg Neutrophils # 9.1 H Seg Neutrophils # Man Lymphocytes # (Manual) Monocytes # (Manual) D-Dimer Heparin Anti-Xa Level ABG pH 7.331 L POC ABG pCO2 ABG pO2 ABG HCO3 ABG O2 Saturation ABG Base Excess -4.7 L ABG Hemoglobin 11.0 L VBG pH Oxyhemoglobin 93.9 L Sodium 136 L Potassium Chloride Carbon Dioxide 20 L BUN 73 H Creatinine 2.0 H Glucose 192 H POC Glucose Lactic Acid Calcium 8.0 L AST Alkaline Phosphatase Lactate Dehydrogenase 271 H Total Creatine Kinase CK-MB (CK-2) C-Reactive Protein 2.20 H Total Protein 5.0 L Albumin 2.0 L Urine WBC (Auto) Urine Creatinine Urine Total Protein Coronavirus (PCR) 06/04/20 06/04/20 06/04/20 04:19 05:51 11:48 WBC RBC Hgb Hct RDW Lymph % (Auto) [place] % (Auto) Eos % (Auto) Lymph # [place] # Seg Neutrophils % Seg Neuts % (Manual) Lymphocytes % (Manual) Seg Neutrophils # Seg Neutrophils # Man Lymphocytes # (Manual) Monocytes # (Manual) D-Dimer 414.52 H Heparin Anti-Xa Level ABG pH POC ABG pCO2 ABG pO2 ABG HCO3 ABG O2 Saturation ABG Base Excess ABG Hemoglobin VBG pH Oxyhemoglobin Sodium Potassium Chloride Carbon Dioxide BUN Creatinine Glucose POC Glucose 179 H 213 H Lactic Acid Calcium AST Alkaline Phosphatase Lactate Dehydrogenase Total Creatine Kinase CK-MB (CK-2) C-Reactive Protein Total Protein Albumin Urine WBC (Auto) Urine Creatinine Urine Total Protein Coronavirus (PCR) 06/04/20 06/05/20 06/05/20 18:25 00:16 05:00 WBC RBC Hgb Hct RDW Lymph % (Auto) [place] % (Auto) Eos % (Auto) Lymph # [place] # Seg Neutrophils % Seg Neuts % (Manual) Lymphocytes % (Manual) Seg Neutrophils # Seg Neutrophils # Man Lymphocytes # (Manual) Monocytes # (Manual) D-Dimer Heparin Anti-Xa Level ABG pH 7.286 L POC ABG pCO2 ABG pO2 96.2 H ABG HCO3 ABG O2 Saturation ABG Base Excess -6.3 L ABG Hemoglobin 8.8 L VBG pH Oxyhemoglobin 94.8 L Sodium Potassium Chloride Carbon Dioxide BUN Creatinine Glucose POC Glucose 238 H 183 H Lactic Acid Calcium AST Alkaline Phosphatase Lactate Dehydrogenase Total Creatine Kinase CK-MB (CK-2) C-Reactive Protein Total Protein Albumin Urine WBC (Auto) Urine Creatinine Urine Total Protein Coronavirus (PCR) 06/05/20 06/05/20 06/05/20 05:39 07:25 07:25 WBC RBC 2.97 L Hgb 8.7 L Hct 25.7 L RDW 16.0 H Lymph % (Auto) 8.8 L [place] % (Auto) 13.3 H Eos % (Auto) Lymph # 0.8 L [place] # 1.3 H Seg Neutrophils % 77.3 H Seg Neuts % (Manual) Lymphocytes % (Manual) Seg Neutrophils # Seg Neutrophils # Man Lymphocytes # (Manual) Monocytes # (Manual) D-Dimer Heparin Anti-Xa Level ABG pH POC ABG pCO2 ABG pO2 ABG HCO3 ABG O2 Saturation ABG Base Excess ABG Hemoglobin VBG pH Oxyhemoglobin Sodium 133 L Potassium Chloride Carbon Dioxide 17 L BUN 89 H Creatinine 2.8 H Glucose 176 H POC Glucose 149 H Lactic Acid Calcium 7.7 L AST Alkaline Phosphatase Lactate Dehydrogenase Total Creatine Kinase CK-MB (CK-2) C-Reactive Protein Total Protein 4.2 L Albumin 1.9 L Urine WBC (Auto) Urine Creatinine Urine Total Protein Coronavirus (PCR) 06/05/20 06/05/20 06/05/20 07:25 12:05 15:41 WBC RBC Hgb Hct RDW Lymph % (Auto) [place] % (Auto) Eos % (Auto) Lymph # [place] # Seg Neutrophils % Seg Neuts % (Manual) Lymphocytes % (Manual) Seg Neutrophils # Seg Neutrophils # Man Lymphocytes # (Manual) Monocytes # (Manual) D-Dimer Heparin Anti-Xa Level 0.76 H 0.81 H ABG pH POC ABG pCO2 ABG pO2 ABG HCO3 ABG O2 Saturation ABG Base Excess ABG Hemoglobin VBG pH Oxyhemoglobin Sodium Potassium Chloride Carbon Dioxide BUN Creatinine Glucose POC Glucose 198 H Lactic Acid Calcium AST Alkaline Phosphatase Lactate Dehydrogenase Total Creatine Kinase CK-MB (CK-2) C-Reactive Protein Total Protein Albumin Urine WBC (Auto) Urine Creatinine Urine Total Protein Coronavirus (PCR) 06/05/20 06/05/20 06/06/20 18:08 23:25 04:00 WBC RBC Hgb Hct RDW Lymph % (Auto) [place] % (Auto) Eos % (Auto) Lymph # [place] # Seg Neutrophils % Seg Neuts % (Manual) Lymphocytes % (Manual) Seg Neutrophils # Seg Neutrophils # Man Lymphocytes # (Manual) Monocytes # (Manual) D-Dimer Heparin Anti-Xa Level ABG pH POC ABG pCO2 ABG pO2 ABG HCO3 ABG O2 Saturation ABG Base Excess ABG Hemoglobin VBG pH Oxyhemoglobin Sodium Potassium Chloride Carbon Dioxide BUN Creatinine Glucose POC Glucose 223 H 169 H Lactic Acid Calcium AST Alkaline Phosphatase Lactate Dehydrogenase Total Creatine Kinase CK-MB (CK-2) C-Reactive Protein Total Protein Albumin Urine WBC (Auto) 15.0 H Urine Creatinine Urine Total Protein Coronavirus (PCR) 06/06/20 06/06/20 06/06/20 04:00 05:33 05:38 WBC RBC 2.97 L Hgb 8.7 L Hct 26.8 L RDW 16.8 H Lymph % (Auto) [place] % (Auto) Eos % (Auto) Lymph # [place] # Seg Neutrophils % Seg Neuts % (Manual) Lymphocytes % (Manual) Seg Neutrophils # Seg Neutrophils # Man Lymphocytes # (Manual) Monocytes # (Manual) D-Dimer Heparin Anti-Xa Level ABG pH POC ABG pCO2 ABG pO2 ABG HCO3 ABG O2 Saturation ABG Base Excess ABG Hemoglobin VBG pH Oxyhemoglobin Sodium Potassium Chloride Carbon Dioxide BUN Creatinine Glucose POC Glucose 186 H Lactic Acid Calcium AST Alkaline Phosphatase Lactate Dehydrogenase Total Creatine Kinase CK-MB (CK-2) C-Reactive Protein Total Protein Albumin Urine WBC (Auto) Urine Creatinine 82.2 H Urine Total Protein 196 H Coronavirus (PCR) 06/06/20 06/06/20 06/06/20 05:38 12:25 17:03 WBC RBC Hgb Hct RDW Lymph % (Auto) [place] % (Auto) Eos % (Auto) Lymph # [place] # Seg Neutrophils % Seg Neuts % (Manual) Lymphocytes % (Manual) Seg Neutrophils # Seg Neutrophils # Man Lymphocytes # (Manual) Monocytes # (Manual) D-Dimer Heparin Anti-Xa Level ABG pH POC ABG pCO2 ABG pO2 ABG HCO3 ABG O2 Saturation ABG Base Excess ABG Hemoglobin VBG pH Oxyhemoglobin Sodium 134 L Potassium 5.2 H Chloride Carbon Dioxide 18 L BUN 97 H Creatinine 2.5 H Glucose 193 H POC Glucose 239 H 252 H Lactic Acid Calcium 7.5 L AST Alkaline Phosphatase Lactate Dehydrogenase Total Creatine Kinase CK-MB (CK-2) C-Reactive Protein Total Protein 4.1 L Albumin 1.9 L Urine WBC (Auto) Urine Creatinine Urine Total Protein Coronavirus (PCR) 06/07/20 06/07/20 06/07/20 00:16 01:49 04:00 WBC RBC 2.91 L Hgb 8.4 L Hct 25.0 L RDW 16.1 H Lymph % (Auto) 5.7 L [place] % (Auto) 10.5 H Eos % (Auto) Lymph # 0.6 L [place] # 1.1 H Seg Neutrophils % 83.6 H Seg Neuts % (Manual) Lymphocytes % (Manual) Seg Neutrophils # 9.1 H Seg Neutrophils # Man Lymphocytes # (Manual) Monocytes # (Manual) D-Dimer Heparin Anti-Xa Level 0.26 L ABG pH POC ABG pCO2 ABG pO2 ABG HCO3 ABG O2 Saturation ABG Base Excess ABG Hemoglobin VBG pH Oxyhemoglobin Sodium Potassium Chloride Carbon Dioxide BUN Creatinine Glucose POC Glucose 173 H Lactic Acid Calcium AST Alkaline Phosphatase Lactate Dehydrogenase Total Creatine Kinase CK-MB (CK-2) C-Reactive Protein Total Protein Albumin Urine WBC (Auto) Urine Creatinine Urine Total Protein Coronavirus (PCR) 06/07/20 06/07/20 06/07/20 04:00 04:54 05:51 WBC RBC Hgb Hct RDW Lymph % (Auto) [place] % (Auto) Eos % (Auto) Lymph # [place] # Seg Neutrophils % Seg Neuts % (Manual) Lymphocytes % (Manual) Seg Neutrophils # Seg Neutrophils # Man Lymphocytes # (Manual) Monocytes # (Manual) D-Dimer Heparin Anti-Xa Level ABG pH 7.317 L POC ABG pCO2 ABG pO2 71.4 L ABG HCO3 ABG O2 Saturation 94.3 L ABG Base Excess -4.8 L ABG Hemoglobin 7.1 L VBG pH Oxyhemoglobin 92.2 L Sodium 133 L Potassium Chloride Carbon Dioxide 18 L BUN 100 H Creatinine 2.5 H Glucose 158 H POC Glucose 168 H Lactic Acid Calcium 7.6 L AST Alkaline Phosphatase Lactate Dehydrogenase Total Creatine Kinase CK-MB (CK-2) C-Reactive Protein Total Protein 4.7 L Albumin 2.0 L Urine WBC (Auto) Urine Creatinine Urine Total Protein Coronavirus (PCR) 06/07/20 06/07/20 06/07/20 12:03 17:17 20:10 WBC RBC Hgb Hct RDW Lymph % (Auto) [place] % (Auto) Eos % (Auto) Lymph # [place] # Seg Neutrophils % Seg Neuts % (Manual) Lymphocytes % (Manual) Seg Neutrophils # Seg Neutrophils # Man Lymphocytes # (Manual) Monocytes # (Manual) D-Dimer Heparin Anti-Xa Level 0.17 L ABG pH POC ABG pCO2 ABG pO2 ABG HCO3 ABG O2 Saturation ABG Base Excess ABG Hemoglobin VBG pH Oxyhemoglobin Sodium Potassium Chloride Carbon Dioxide BUN Creatinine Glucose POC Glucose 276 H 281 H Lactic Acid Calcium AST Alkaline Phosphatase Lactate Dehydrogenase Total Creatine Kinase CK-MB (CK-2) C-Reactive Protein Total Protein Albumin Urine WBC (Auto) Urine Creatinine Urine Total Protein Coronavirus (PCR) 06/08/20 06/08/20 06/08/20 00:02 04:47 04:47 WBC 16.4 H RBC 3.07 L Hgb 8.6 L Hct 26.5 L RDW 16.3 H Lymph % (Auto) [place] % (Auto) Eos % (Auto) Lymph # [place] # Seg Neutrophils % Seg Neuts % (Manual) 90.0 H Lymphocytes % (Manual) 3.0 L Seg Neutrophils # Seg Neutrophils # Man 14.8 H Lymphocytes # (Manual) 0.5 L Monocytes # (Manual) 1.1 H D-Dimer Heparin Anti-Xa Level ABG pH POC ABG pCO2 ABG pO2 ABG HCO3 ABG O2 Saturation ABG Base Excess ABG Hemoglobin VBG pH Oxyhemoglobin Sodium 129 L Potassium Chloride 95.6 L Carbon Dioxide 17 L BUN 106 H Creatinine 2.5 H Glucose 213 H POC Glucose 242 H Lactic Acid Calcium 7.6 L AST Alkaline Phosphatase Lactate Dehydrogenase Total Creatine Kinase CK-MB (CK-2) C-Reactive Protein Total Protein 5.0 L Albumin 2.1 L Urine WBC (Auto) Urine Creatinine Urine Total Protein Coronavirus (PCR) 06/08/20 06/08/20 06/08/20 05:40 11:55 17:54 WBC RBC Hgb Hct RDW Lymph % (Auto) [place] % (Auto) Eos % (Auto) Lymph # [place] # Seg Neutrophils % Seg Neuts % (Manual) Lymphocytes % (Manual) Seg Neutrophils # Seg Neutrophils # Man Lymphocytes # (Manual) Monocytes # (Manual) D-Dimer Heparin Anti-Xa Level ABG pH POC ABG pCO2 ABG pO2 ABG HCO3 ABG O2 Saturation ABG Base Excess ABG Hemoglobin VBG pH Oxyhemoglobin Sodium Potassium Chloride Carbon Dioxide BUN Creatinine Glucose POC Glucose 221 H 218 H 163 H Lactic Acid Calcium AST Alkaline Phosphatase Lactate Dehydrogenase Total Creatine Kinase CK-MB (CK-2) C-Reactive Protein Total Protein Albumin Urine WBC (Auto) Urine Creatinine Urine Total Protein Coronavirus (PCR) 06/08/20 06/09/20 06/09/20 22:01 00:09 05:16 WBC 19.0 H RBC 3.35 L Hgb 9.2 L Hct 28.5 L RDW 16.3 H Lymph % (Auto) [place] % (Auto) Eos % (Auto) Lymph # [place] # Seg Neutrophils % Seg Neuts % (Manual) 85.0 H Lymphocytes % (Manual) 7.0 L Seg Neutrophils # Seg Neutrophils # Man 16.2 H Lymphocytes # (Manual) Monocytes # (Manual) 1.3 H D-Dimer Heparin Anti-Xa Level ABG pH POC ABG pCO2 ABG pO2 ABG HCO3 ABG O2 Saturation ABG Base Excess ABG Hemoglobin VBG pH Oxyhemoglobin Sodium Potassium Chloride Carbon Dioxide BUN Creatinine Glucose POC Glucose 182 H 150 H Lactic Acid Calcium AST Alkaline Phosphatase Lactate Dehydrogenase Total Creatine Kinase CK-MB (CK-2) C-Reactive Protein Total Protein Albumin Urine WBC (Auto) Urine Creatinine Urine Total Protein Coronavirus (PCR) 06/09/20 06/09/20 06/09/20 05:16 05:24 11:29 WBC RBC Hgb Hct RDW Lymph % (Auto) [place] % (Auto) Eos % (Auto) Lymph # [place] # Seg Neutrophils % Seg Neuts % (Manual) Lymphocytes % (Manual) Seg Neutrophils # Seg Neutrophils # Man Lymphocytes # (Manual) Monocytes # (Manual) D-Dimer Heparin Anti-Xa Level ABG pH POC ABG pCO2 ABG pO2 ABG HCO3 ABG O2 Saturation ABG Base Excess ABG Hemoglobin VBG pH Oxyhemoglobin Sodium 133 L Potassium Chloride Carbon Dioxide 19 L BUN 109 H Creatinine 2.1 H Glucose 133 H POC Glucose 128 H 119 H Lactic Acid Calcium 7.7 L AST Alkaline Phosphatase < 5 L Lactate Dehydrogenase Total Creatine Kinase CK-MB (CK-2) C-Reactive Protein Total Protein 4.6 L Albumin < 0.2 L Urine WBC (Auto) Urine Creatinine Urine Total Protein Coronavirus (PCR) 06/09/20 06/10/20 06/10/20 17:32 00:00 05:49 WBC RBC Hgb Hct RDW Lymph % (Auto) [place] % (Auto) Eos % (Auto) Lymph # [place] # Seg Neutrophils % Seg Neuts % (Manual) Lymphocytes % (Manual) Seg Neutrophils # Seg Neutrophils # Man Lymphocytes # (Manual) Monocytes # (Manual) D-Dimer Heparin Anti-Xa Level 0.19 L ABG pH POC ABG pCO2 ABG pO2 ABG HCO3 ABG O2 Saturation ABG Base Excess ABG Hemoglobin VBG pH Oxyhemoglobin Sodium Potassium Chloride Carbon Dioxide BUN Creatinine Glucose POC Glucose 106 H 117 H Lactic Acid Calcium AST Alkaline Phosphatase Lactate Dehydrogenase Total Creatine Kinase CK-MB (CK-2) C-Reactive Protein Total Protein Albumin Urine WBC (Auto) Urine Creatinine Urine Total Protein Coronavirus (PCR) 06/10/20 06/10/20 06/10/20 05:54 07:40 11:40 WBC RBC Hgb Hct RDW Lymph % (Auto) [place] % (Auto) Eos % (Auto) Lymph # [place] # Seg Neutrophils % Seg Neuts % (Manual) Lymphocytes % (Manual) Seg Neutrophils # Seg Neutrophils # Man Lymphocytes # (Manual) Monocytes # (Manual) D-Dimer Heparin Anti-Xa Level ABG pH POC ABG pCO2 ABG pO2 ABG HCO3 ABG O2 Saturation ABG Base Excess ABG Hemoglobin VBG pH Oxyhemoglobin Sodium 146 H D Potassium Chloride Carbon Dioxide 20 L BUN 99 H Creatinine 1.9 H Glucose 121 H POC Glucose 127 H 138 H Lactic Acid Calcium 8.2 L AST Alkaline Phosphatase Lactate Dehydrogenase Total Creatine Kinase CK-MB (CK-2) C-Reactive Protein Total Protein Albumin Urine WBC (Auto) Urine Creatinine Urine Total Protein Coronavirus (PCR) 06/10/20 06/10/20 06/10/20 14:44 17:31 23:22 WBC RBC Hgb Hct RDW Lymph % (Auto) [place] % (Auto) Eos % (Auto) Lymph # [place] # Seg Neutrophils % Seg Neuts % (Manual) Lymphocytes % (Manual) Seg Neutrophils # Seg Neutrophils # Man Lymphocytes # (Manual) Monocytes # (Manual) D-Dimer Heparin Anti-Xa Level 0.17 L ABG pH POC ABG pCO2 ABG pO2 ABG HCO3 ABG O2 Saturation ABG Base Excess ABG Hemoglobin VBG pH Oxyhemoglobin Sodium Potassium Chloride Carbon Dioxide BUN Creatinine Glucose POC Glucose 128 H 114 H Lactic Acid Calcium AST Alkaline Phosphatase Lactate Dehydrogenase Total Creatine Kinase CK-MB (CK-2) C-Reactive Protein Total Protein Albumin Urine WBC (Auto) Urine Creatinine Urine Total Protein Coronavirus (PCR) 06/11/20 06/11/20 06/11/20 00:22 03:45 03:45 WBC 14.6 H RBC 2.77 L Hgb 7.9 L Hct 24.3 L RDW 16.8 H Lymph % (Auto) 6.6 L [place] % (Auto) 8.5 H Eos % (Auto) Lymph # 1.0 L [place] # 1.2 H Seg Neutrophils % 82.9 H Seg Neuts % (Manual) Lymphocytes % (Manual) Seg Neutrophils # 12.1 H Seg Neutrophils # Man Lymphocytes # (Manual) Monocytes # (Manual) D-Dimer Heparin Anti-Xa Level 0.24 L ABG pH POC ABG pCO2 ABG pO2 ABG HCO3 ABG O2 Saturation ABG Base Excess ABG Hemoglobin VBG pH Oxyhemoglobin Sodium Potassium Chloride Carbon Dioxide 20 L BUN 88 H Creatinine 1.5 H Glucose 111 H POC Glucose Lactic Acid Calcium 8.2 L AST Alkaline Phosphatase Lactate Dehydrogenase Total Creatine Kinase CK-MB (CK-2) C-Reactive Protein Total Protein Albumin Urine WBC (Auto) Urine Creatinine Urine Total Protein Coronavirus (PCR) 06/11/20 06/11/20 06/11/20 06:03 10:22 11:11 WBC RBC Hgb Hct RDW Lymph % (Auto) [place] % (Auto) Eos % (Auto) Lymph # [place] # Seg Neutrophils % Seg Neuts % (Manual) Lymphocytes % (Manual) Seg Neutrophils # Seg Neutrophils # Man Lymphocytes # (Manual) Monocytes # (Manual) D-Dimer Heparin Anti-Xa Level 0.26 L ABG pH POC ABG pCO2 ABG pO2 ABG HCO3 ABG O2 Saturation ABG Base Excess ABG Hemoglobin 9.6 L VBG pH Oxyhemoglobin Sodium Potassium Chloride Carbon Dioxide BUN Creatinine Glucose POC Glucose 114 H Lactic Acid Calcium AST Alkaline Phosphatase Lactate Dehydrogenase Total Creatine Kinase CK-MB (CK-2) C-Reactive Protein Total Protein Albumin Urine WBC (Auto) Urine Creatinine Urine Total Protein Coronavirus (PCR) 06/11/20 06/11/20 06/12/20 12:24 17:24 00:21 WBC RBC Hgb Hct RDW Lymph % (Auto) [place] % (Auto) Eos % (Auto) Lymph # [place] # Seg Neutrophils % Seg Neuts % (Manual) Lymphocytes % (Manual) Seg Neutrophils # Seg Neutrophils # Man Lymphocytes # (Manual) Monocytes # (Manual) D-Dimer Heparin Anti-Xa Level ABG pH POC ABG pCO2 ABG pO2 ABG HCO3 ABG O2 Saturation ABG Base Excess ABG Hemoglobin VBG pH Oxyhemoglobin Sodium Potassium Chloride Carbon Dioxide BUN Creatinine Glucose POC Glucose 119 H 126 H 117 H Lactic Acid Calcium AST Alkaline Phosphatase Lactate Dehydrogenase Total Creatine Kinase CK-MB (CK-2) C-Reactive Protein Total Protein Albumin Urine WBC (Auto) Urine Creatinine Urine Total Protein Coronavirus (PCR) 06/12/20 06/12/20 06/12/20 02:46 02:46 05:46 WBC 13.2 H RBC 2.83 L Hgb 8.3 L Hct 24.3 L RDW 16.6 H Lymph % (Auto) 6.2 L [place] % (Auto) 9.5 H Eos % (Auto) Lymph # 0.8 L [place] # 1.3 H Seg Neutrophils % 81.9 H Seg Neuts % (Manual) Lymphocytes % (Manual) Seg Neutrophils # 10.9 H Seg Neutrophils # Man Lymphocytes # (Manual) Monocytes # (Manual) D-Dimer Heparin Anti-Xa Level ABG pH POC ABG pCO2 ABG pO2 ABG HCO3 ABG O2 Saturation ABG Base Excess ABG Hemoglobin VBG pH Oxyhemoglobin Sodium Potassium 3.5 L Chloride Carbon Dioxide BUN 77 H Creatinine 1.3 H Glucose POC Glucose 132 H Lactic Acid Calcium 8.3 L AST Alkaline Phosphatase Lactate Dehydrogenase Total Creatine Kinase CK-MB (CK-2) C-Reactive Protein Total Protein Albumin Urine WBC (Auto) Urine Creatinine Urine Total Protein Coronavirus (PCR) 06/12/20 06/12/20 06/12/20 09:20 12:16 17:48 WBC RBC Hgb Hct RDW Lymph % (Auto) [place] % (Auto) Eos % (Auto) Lymph # [place] # Seg Neutrophils % Seg Neuts % (Manual) Lymphocytes % (Manual) Seg Neutrophils # Seg Neutrophils # Man Lymphocytes # (Manual) Monocytes # (Manual) D-Dimer Heparin Anti-Xa Level ABG pH POC ABG pCO2 ABG pO2 91.1 H ABG HCO3 ABG O2 Saturation ABG Base Excess ABG Hemoglobin VBG pH Oxyhemoglobin 94.8 L Sodium Potassium Chloride Carbon Dioxide BUN Creatinine Glucose POC Glucose 167 H 182 H Lactic Acid Calcium AST Alkaline Phosphatase Lactate Dehydrogenase Total Creatine Kinase CK-MB (CK-2) C-Reactive Protein Total Protein Albumin Urine WBC (Auto) Urine Creatinine Urine Total Protein Coronavirus (PCR) 06/13/20 06/13/20 06/13/20 00:08 05:37 09:09 WBC RBC Hgb Hct RDW Lymph % (Auto) [place] % (Auto) Eos % (Auto) Lymph # [place] # Seg Neutrophils % Seg Neuts % (Manual) Lymphocytes % (Manual) Seg Neutrophils # Seg Neutrophils # Man Lymphocytes # (Manual) Monocytes # (Manual) D-Dimer Heparin Anti-Xa Level 0.86 H ABG pH POC ABG pCO2 ABG pO2 ABG HCO3 ABG O2 Saturation ABG Base Excess ABG Hemoglobin VBG pH Oxyhemoglobin Sodium Potassium Chloride Carbon Dioxide BUN Creatinine Glucose POC Glucose 142 H 119 H Lactic Acid Calcium AST Alkaline Phosphatase Lactate Dehydrogenase Total Creatine Kinase CK-MB (CK-2) C-Reactive Protein Total Protein Albumin Urine WBC (Auto) Urine Creatinine Urine Total Protein Coronavirus (PCR) 06/13/20 06/13/20 06/13/20 12:28 17:55 21:17 WBC RBC Hgb Hct RDW Lymph % (Auto) [place] % (Auto) Eos % (Auto) Lymph # [place] # Seg Neutrophils % Seg Neuts % (Manual) Lymphocytes % (Manual) Seg Neutrophils # Seg Neutrophils # Man Lymphocytes # (Manual) Monocytes # (Manual) D-Dimer Heparin Anti-Xa Level ABG pH POC ABG pCO2 ABG pO2 ABG HCO3 ABG O2 Saturation ABG Base Excess ABG Hemoglobin VBG pH Oxyhemoglobin Sodium Potassium Chloride Carbon Dioxide BUN 61 H Creatinine Glucose 131 H POC Glucose 165 H 174 H Lactic Acid Calcium AST Alkaline Phosphatase Lactate Dehydrogenase Total Creatine Kinase CK-MB (CK-2) C-Reactive Protein Total Protein Albumin Urine WBC (Auto) Urine Creatinine Urine Total Protein Coronavirus (PCR) 06/13/20 06/13/20 06/14/20 21:17 23:50 05:34 WBC RBC Hgb Hct RDW Lymph % (Auto) [place] % (Auto) Eos % (Auto) Lymph # [place] # Seg Neutrophils % Seg Neuts % (Manual) Lymphocytes % (Manual) Seg Neutrophils # Seg Neutrophils # Man Lymphocytes # (Manual) Monocytes # (Manual) D-Dimer Heparin Anti-Xa Level 0.72 H ABG pH POC ABG pCO2 ABG pO2 ABG HCO3 ABG O2 Saturation ABG Base Excess ABG Hemoglobin VBG pH Oxyhemoglobin Sodium 146 H Potassium Chloride 107.6 H Carbon Dioxide BUN 61 H Creatinine 1.3 H Glucose 135 H POC Glucose 146 H Lactic Acid Calcium AST Alkaline Phosphatase Lactate Dehydrogenase Total Creatine Kinase CK-MB (CK-2) C-Reactive Protein Total Protein Albumin Urine WBC (Auto) Urine Creatinine Urine Total Protein Coronavirus (PCR) 06/14/20 06/14/20 06/14/20 06:11 09:28 11:30 WBC RBC Hgb Hct RDW Lymph % (Auto) [place] % (Auto) Eos % (Auto) Lymph # [place] # Seg Neutrophils % Seg Neuts % (Manual) Lymphocytes % (Manual) Seg Neutrophils # Seg Neutrophils # Man Lymphocytes # (Manual) Monocytes # (Manual) D-Dimer Heparin Anti-Xa Level 0.90 H ABG pH POC ABG pCO2 ABG pO2 ABG HCO3 ABG O2 Saturation ABG Base Excess ABG Hemoglobin VBG pH Oxyhemoglobin Sodium Potassium Chloride Carbon Dioxide BUN Creatinine Glucose POC Glucose 141 H 186 H Lactic Acid Calcium AST Alkaline Phosphatase Lactate Dehydrogenase Total Creatine Kinase CK-MB (CK-2) C-Reactive Protein Total Protein Albumin Urine WBC (Auto) Urine Creatinine Urine Total Protein Coronavirus (PCR) 06/14/20 06/14/20 06/14/20 16:07 18:16 23:51 WBC RBC Hgb Hct RDW Lymph % (Auto) [place] % (Auto) Eos % (Auto) Lymph # [place] # Seg Neutrophils % Seg Neuts % (Manual) Lymphocytes % (Manual) Seg Neutrophils # Seg Neutrophils # Man Lymphocytes # (Manual) Monocytes # (Manual) D-Dimer Heparin Anti-Xa Level 0.82 H ABG pH POC ABG pCO2 ABG pO2 ABG HCO3 ABG O2 Saturation ABG Base Excess ABG Hemoglobin VBG pH Oxyhemoglobin Sodium Potassium Chloride Carbon Dioxide BUN Creatinine Glucose POC Glucose 106 H 154 H Lactic Acid Calcium AST Alkaline Phosphatase Lactate Dehydrogenase Total Creatine Kinase CK-MB (CK-2) C-Reactive Protein Total Protein Albumin Urine WBC (Auto) Urine Creatinine Urine Total Protein Coronavirus (PCR) 06/15/20 06/15/20 06/15/20 04:24 04:24 05:59 WBC RBC 2.75 L Hgb 7.9 L Hct 24.0 L RDW 16.4 H Lymph % (Auto) 12.9 L [place] % (Auto) 8.7 H Eos % (Auto) 4.6 H Lymph # 1.1 L [place] # Seg Neutrophils % 73.2 H Seg Neuts % (Manual) Lymphocytes % (Manual) Seg Neutrophils # Seg Neutrophils # Man Lymphocytes # (Manual) Monocytes # (Manual) D-Dimer Heparin Anti-Xa Level ABG pH POC ABG pCO2 ABG pO2 ABG HCO3 ABG O2 Saturation ABG Base Excess ABG Hemoglobin VBG pH Oxyhemoglobin Sodium Potassium 3.4 L Chloride Carbon Dioxide BUN 55 H Creatinine 1.3 H Glucose 142 H POC Glucose 131 H Lactic Acid Calcium AST Alkaline Phosphatase Lactate Dehydrogenase Total Creatine Kinase CK-MB (CK-2) C-Reactive Protein Total Protein Albumin Urine WBC (Auto) Urine Creatinine Urine Total Protein Coronavirus (PCR) 06/15/20 06/15/20 06/16/20 12:33 17:07 00:22 WBC RBC Hgb Hct RDW Lymph % (Auto) [place] % (Auto) Eos % (Auto) Lymph # [place] # Seg Neutrophils % Seg Neuts % (Manual) Lymphocytes % (Manual) Seg Neutrophils # Seg Neutrophils # Man Lymphocytes # (Manual) Monocytes # (Manual) D-Dimer Heparin Anti-Xa Level 0.21 L ABG pH POC ABG pCO2 ABG pO2 ABG HCO3 ABG O2 Saturation ABG Base Excess ABG Hemoglobin VBG pH Oxyhemoglobin Sodium Potassium Chloride Carbon Dioxide BUN Creatinine Glucose POC Glucose 180 H 185 H Lactic Acid Calcium AST Alkaline Phosphatase Lactate Dehydrogenase Total Creatine Kinase CK-MB (CK-2) C-Reactive Protein Total Protein Albumin Urine WBC (Auto) Urine Creatinine Urine Total Protein Coronavirus (PCR) 06/16/20 06/16/20 06/16/20 01:45 08:06 09:15 WBC RBC Hgb Hct RDW Lymph % (Auto) [place] % (Auto) Eos % (Auto) Lymph # [place] # Seg Neutrophils % Seg Neuts % (Manual) Lymphocytes % (Manual) Seg Neutrophils # Seg Neutrophils # Man Lymphocytes # (Manual) Monocytes # (Manual) D-Dimer Heparin Anti-Xa Level ABG pH POC ABG pCO2 ABG pO2 ABG HCO3 ABG O2 Saturation ABG Base Excess ABG Hemoglobin VBG pH Oxyhemoglobin Sodium Potassium Chloride Carbon Dioxide BUN 49 H Creatinine Glucose 154 H POC Glucose 140 H 171 H Lactic Acid Calcium AST Alkaline Phosphatase Lactate Dehydrogenase Total Creatine Kinase CK-MB (CK-2) C-Reactive Protein Total Protein Albumin Urine WBC (Auto) Urine Creatinine Urine Total Protein Coronavirus (PCR) 06/16/20 06/16/20 06/16/20 10:46 12:33 17:54 WBC RBC Hgb Hct RDW Lymph % (Auto) [place] % (Auto) Eos % (Auto) Lymph # [place] # Seg Neutrophils % Seg Neuts % (Manual) Lymphocytes % (Manual) Seg Neutrophils # Seg Neutrophils # Man Lymphocytes # (Manual) Monocytes # (Manual) D-Dimer Heparin Anti-Xa Level 0.12 L ABG pH POC ABG pCO2 ABG pO2 ABG HCO3 ABG O2 Saturation ABG Base Excess ABG Hemoglobin VBG pH Oxyhemoglobin Sodium Potassium Chloride Carbon Dioxide BUN Creatinine Glucose POC Glucose 166 H 151 H Lactic Acid Calcium AST Alkaline Phosphatase Lactate Dehydrogenase Total Creatine Kinase CK-MB (CK-2) C-Reactive Protein Total Protein Albumin Urine WBC (Auto) Urine Creatinine Urine Total Protein Coronavirus (PCR) 06/16/20 06/17/20 06/17/20 18:47 00:00 02:19 WBC RBC Hgb Hct RDW Lymph % (Auto) [place] % (Auto) Eos % (Auto) Lymph # [place] # Seg Neutrophils % Seg Neuts % (Manual) Lymphocytes % (Manual) Seg Neutrophils # Seg Neutrophils # Man Lymphocytes # (Manual) Monocytes # (Manual) D-Dimer Heparin Anti-Xa Level 0.73 H 0.77 H ABG pH POC ABG pCO2 ABG pO2 ABG HCO3 ABG O2 Saturation ABG Base Excess ABG Hemoglobin VBG pH Oxyhemoglobin Sodium Potassium Chloride Carbon Dioxide BUN Creatinine Glucose POC Glucose 139 H Lactic Acid Calcium AST Alkaline Phosphatase Lactate Dehydrogenase Total Creatine Kinase CK-MB (CK-2) C-Reactive Protein Total Protein Albumin Urine WBC (Auto) Urine Creatinine Urine Total Protein Coronavirus (PCR) 06/17/20 06/17/20 06/17/20 06:07 11:42 16:43 WBC RBC Hgb Hct RDW Lymph % (Auto) [place] % (Auto) Eos % (Auto) Lymph # [place] # Seg Neutrophils % Seg Neuts % (Manual) Lymphocytes % (Manual) Seg Neutrophils # Seg Neutrophils # Man Lymphocytes # (Manual) Monocytes # (Manual) D-Dimer Heparin Anti-Xa Level 0.73 H ABG pH POC ABG pCO2 ABG pO2 ABG HCO3 ABG O2 Saturation ABG Base Excess ABG Hemoglobin VBG pH Oxyhemoglobin Sodium Potassium Chloride Carbon Dioxide BUN Creatinine Glucose POC Glucose 169 H 169 H Lactic Acid Calcium AST Alkaline Phosphatase Lactate Dehydrogenase Total Creatine Kinase CK-MB (CK-2) C-Reactive Protein Total Protein Albumin Urine WBC (Auto) Urine Creatinine Urine Total Protein Coronavirus (PCR) 06/17/20 06/17/20 06/17/20 18:18 23:08 23:16 WBC RBC Hgb Hct RDW Lymph % (Auto) [place] % (Auto) Eos % (Auto) Lymph # [place] # Seg Neutrophils % Seg Neuts % (Manual) Lymphocytes % (Manual) Seg Neutrophils # Seg Neutrophils # Man Lymphocytes # (Manual) Monocytes # (Manual) D-Dimer Heparin Anti-Xa Level 0.71 H ABG pH POC ABG pCO2 ABG pO2 ABG HCO3 ABG O2 Saturation ABG Base Excess ABG Hemoglobin VBG pH Oxyhemoglobin Sodium Potassium Chloride Carbon Dioxide BUN Creatinine Glucose POC Glucose 159 H 134 H Lactic Acid Calcium AST Alkaline Phosphatase Lactate Dehydrogenase Total Creatine Kinase CK-MB (CK-2) C-Reactive Protein Total Protein Albumin Urine WBC (Auto) Urine Creatinine Urine Total Protein Coronavirus (PCR) 06/18/20 06/18/20 06/18/20 04:42 05:52 11:50 WBC RBC Hgb Hct RDW Lymph % (Auto) [place] % (Auto) Eos % (Auto) Lymph # [place] # Seg Neutrophils % Seg Neuts % (Manual) Lymphocytes % (Manual) Seg Neutrophils # Seg Neutrophils # Man Lymphocytes # (Manual) Monocytes # (Manual) D-Dimer Heparin Anti-Xa Level ABG pH POC ABG pCO2 ABG pO2 ABG HCO3 ABG O2 Saturation ABG Base Excess ABG Hemoglobin VBG pH Oxyhemoglobin Sodium Potassium Chloride Carbon Dioxide BUN 44 H Creatinine Glucose 115 H POC Glucose 171 H 167 H Lactic Acid Calcium AST Alkaline Phosphatase Lactate Dehydrogenase Total Creatine Kinase CK-MB (CK-2) C-Reactive Protein Total Protein Albumin Urine WBC (Auto) Urine Creatinine Urine Total Protein Coronavirus (PCR) 06/18/20 06/19/20 06/19/20 23:46 05:48 07:52 WBC RBC Hgb Hct RDW Lymph % (Auto) [place] % (Auto) Eos % (Auto) Lymph # [place] # Seg Neutrophils % Seg Neuts % (Manual) Lymphocytes % (Manual) Seg Neutrophils # Seg Neutrophils # Man Lymphocytes # (Manual) Monocytes # (Manual) D-Dimer Heparin Anti-Xa Level ABG pH POC ABG pCO2 ABG pO2 ABG HCO3 ABG O2 Saturation ABG Base Excess ABG Hemoglobin VBG pH Oxyhemoglobin Sodium Potassium Chloride Carbon Dioxide BUN Creatinine Glucose POC Glucose 130 H 207 H 175 H Lactic Acid Calcium AST Alkaline Phosphatase Lactate Dehydrogenase Total Creatine Kinase CK-MB (CK-2) C-Reactive Protein Total Protein Albumin Urine WBC (Auto) Urine Creatinine Urine Total Protein Coronavirus (PCR) 06/19/20 06/19/20 06/20/20 11:42 22:54 05:17 WBC RBC Hgb Hct RDW Lymph % (Auto) [place] % (Auto) Eos % (Auto) Lymph # [place] # Seg Neutrophils % Seg Neuts % (Manual) Lymphocytes % (Manual) Seg Neutrophils # Seg Neutrophils # Man Lymphocytes # (Manual) Monocytes # (Manual) D-Dimer Heparin Anti-Xa Level ABG pH POC ABG pCO2 ABG pO2 ABG HCO3 ABG O2 Saturation ABG Base Excess ABG Hemoglobin VBG pH Oxyhemoglobin Sodium Potassium Chloride Carbon Dioxide BUN Creatinine Glucose POC Glucose 166 H 135 H 218 H Lactic Acid Calcium AST Alkaline Phosphatase Lactate Dehydrogenase Total Creatine Kinase CK-MB (CK-2) C-Reactive Protein Total Protein Albumin Urine WBC (Auto) Urine Creatinine Urine Total Protein Coronavirus (PCR) 06/20/20 06/20/20 06/20/20 12:04 16:25 16:35 WBC RBC Hgb Hct RDW Lymph % (Auto) [place] % (Auto) Eos % (Auto) Lymph # [place] # Seg Neutrophils % Seg Neuts % (Manual) Lymphocytes % (Manual) Seg Neutrophils # Seg Neutrophils # Man Lymphocytes # (Manual) Monocytes # (Manual) D-Dimer Heparin Anti-Xa Level ABG pH POC ABG pCO2 ABG pO2 59.6 L ABG HCO3 28.7 H ABG O2 Saturation 93.5 L ABG Base Excess 3.4 H ABG Hemoglobin 7.2 L VBG pH Oxyhemoglobin 91.3 L Sodium Potassium Chloride Carbon Dioxide BUN Creatinine Glucose POC Glucose 194 H 137 H Lactic Acid Calcium AST Alkaline Phosphatase Lactate Dehydrogenase Total Creatine Kinase CK-MB (CK-2) C-Reactive Protein Total Protein Albumin Urine WBC (Auto) Urine Creatinine Urine Total Protein Coronavirus (PCR) 06/20/20 06/21/20 06/21/20 23:59 06:25 12:01 WBC RBC Hgb Hct RDW Lymph % (Auto) [place] % (Auto) Eos % (Auto) Lymph # [place] # Seg Neutrophils % Seg Neuts % (Manual) Lymphocytes % (Manual) Seg Neutrophils # Seg Neutrophils # Man Lymphocytes # (Manual) Monocytes # (Manual) D-Dimer Heparin Anti-Xa Level ABG pH POC ABG pCO2 ABG pO2 ABG HCO3 ABG O2 Saturation ABG Base Excess ABG Hemoglobin VBG pH Oxyhemoglobin Sodium Potassium Chloride Carbon Dioxide BUN Creatinine Glucose POC Glucose 156 H 177 H 195 H Lactic Acid Calcium AST Alkaline Phosphatase Lactate Dehydrogenase Total Creatine Kinase CK-MB (CK-2) C-Reactive Protein Total Protein Albumin Urine WBC (Auto) Urine Creatinine Urine Total Protein Coronavirus (PCR) 06/21/20 06/21/20 06/22/20 17:04 21:51 05:06 WBC RBC Hgb Hct RDW Lymph % (Auto) Winston % (Auto) Eos % (Auto) Lymph # Winston # Seg Neutrophils % Seg Neuts % (Manual) Lymphocytes % (Manual) Seg Neutrophils # Seg Neutrophils # Man Lymphocytes # (Manual) Monocytes # (Manual) D-Dimer Heparin Anti-Xa Level ABG pH POC ABG pCO2 ABG pO2 ABG HCO3 ABG O2 Saturation ABG Base Excess ABG Hemoglobin VBG pH Oxyhemoglobin Sodium Potassium Chloride Carbon Dioxide BUN Creatinine Glucose POC Glucose 156 H 154 H 167 H Lactic Acid Calcium AST Alkaline Phosphatase Lactate Dehydrogenase Total Creatine Kinase CK-MB (CK-2) C-Reactive Protein Total Protein Albumin Urine WBC (Auto) Urine Creatinine Urine Total Protein Coronavirus (PCR) 06/22/20 06/22/20 06/22/20 11:20 15:27 16:58 WBC RBC Hgb Hct RDW Lymph % (Auto) Winston % (Auto) Eos % (Auto) Lymph # Winston # Seg Neutrophils % Seg Neuts % (Manual) Lymphocytes % (Manual) Seg Neutrophils # Seg Neutrophils # Man Lymphocytes # (Manual) Monocytes # (Manual) D-Dimer Heparin Anti-Xa Level ABG pH 7.206 L POC ABG pCO2 79.9 H ABG pO2 ABG HCO3 ABG O2 Saturation ABG Base Excess ABG Hemoglobin 8.3 L VBG pH Oxyhemoglobin Sodium Potassium Chloride Carbon Dioxide BUN Creatinine Glucose POC Glucose 181 H 230 H Lactic Acid Calcium AST Alkaline Phosphatase Lactate Dehydrogenase Total Creatine Kinase CK-MB (CK-2) C-Reactive Protein Total Protein Albumin Urine WBC (Auto) Urine Creatinine Urine Total Protein Coronavirus (PCR) 06/22/20 06/23/20 06/23/20 22:26 05:49 05:49 WBC RBC 2.58 L Hgb 7.4 L Hct 23.2 L RDW 17.0 H Lymph % (Auto) Winston % (Auto) 11.2 H Eos % (Auto) Lymph # 1.0 L Winston # Seg Neutrophils % Seg Neuts % (Manual) Lymphocytes % (Manual) Seg Neutrophils # Seg Neutrophils # Man Lymphocytes # (Manual) Monocytes # (Manual) D-Dimer Heparin Anti-Xa Level ABG pH POC ABG pCO2 ABG pO2 ABG HCO3 ABG O2 Saturation ABG Base Excess ABG Hemoglobin VBG pH Oxyhemoglobin Sodium Potassium Chloride Carbon Dioxide BUN 68 H Creatinine 2.4 H Glucose 198 H POC Glucose 195 H Lactic Acid Calcium AST Alkaline Phosphatase Lactate Dehydrogenase Total Creatine Kinase CK-MB (CK-2) C-Reactive Protein Total Protein Albumin Urine WBC (Auto) Urine Creatinine Urine Total Protein Coronavirus (PCR) 06/23/20 06/23/20 05:50 12:29 WBC RBC Hgb Hct RDW Lymph % (Auto) Winston % (Auto) Eos % (Auto) Lymph # Winston # Seg Neutrophils % Seg Neuts % (Manual) Lymphocytes % (Manual) Seg Neutrophils # Seg Neutrophils # Man Lymphocytes # (Manual) Monocytes # (Manual) D-Dimer Heparin Anti-Xa Level ABG pH POC ABG pCO2 ABG pO2 ABG HCO3 ABG O2 Saturation ABG Base Excess ABG Hemoglobin VBG pH Oxyhemoglobin Sodium Potassium Chloride Carbon Dioxide BUN Creatinine Glucose POC Glucose 202 H 218 H Lactic Acid Calcium AST Alkaline Phosphatase Lactate Dehydrogenase Total Creatine Kinase CK-MB (CK-2) C-Reactive Protein Total Protein Albumin Urine WBC (Auto) Urine Creatinine Urine Total Protein Coronavirus (PCR) Allied health notes reviewed: RT
--- NOTE | 2020-06-23 17:16 | Progress Note ---
Assessment and Plan --COVID-19 positive 05/28/2020 --Superficial left cephalic vein DVT/elevated D-dimers[COVID 19] Patient is on heparin drip from 05/29/20 D-dimers improved [phone] DC heparin drip, Discussed with ID, Eliquis 5 mg twice a day for 1 week[per ID] stop date 06/26/2020 -- Acute hypoxemic respiratory failure From COVID-19 viral infection extubated on , on high flow o2 -- s/p PEA Cardiac arrest Cardiology team on board Conservative management as per cardiology -- Acute metabolic encephalopathy, POA likely from sepsis and s/p cardiac arrest with possible anoxic injury -- Acute renal failure: likely ATN Cr slowly improving Avoid ACEI and other nephrotoxic medications Nephrology following -- Coronavirus infection with b/l PNA Completed remdesivir on 06/02 Completed dexamethasone - Last dose 06/07 ID recs appreciated. --Klebsiella pneumonia: Completed antibiotics --CHF (congestive heart failure) Cardiology following. Ef 45% -- Coffee ground emesis -Stress ulcers Possible stress ulcers, On PPI H/H remains stable GI evaluation if Hb drops again -- Hypertension; moderate control Continue amlodipine, coreg, clonidine and hydralazine --Mild LFT elevation: likely from COVID-19. -- DVT prophylaxis Eliquis, SCD to bilateral lower extremities while in bed -- Advance care planning Patient is full code. poor prognosis Patient is critically ill with multiple medical problems Poor prognosis Brief history: 64 YO Female with a medical history of HTN, Diastolic CHF, Pulmonary HTN, DM, Obesity Hypoventilation Syndrome presents to ED for evaluation of shortness of breath. As per staff, the EMS was notified for difficulty breathing. Upon arrival to the patient's home the patient was found to be in distress and was subsequently transported to [facility] for further evaluation and care. In route to [facility] the patient developed cardiac arrest and was treated in accordance with ACLS protocol with return of ROSC. Patient was seen and evaluated in the emergency department and was intubated and placed on ventilatory support. Patient admitted to ICU. Critical care team consulted in ED. She was found to have COVID-19 infection and was started on steroids and remdesivir. ID was consulted. Cardiology was consulted for her systolic heart failure and cardiac arrest. Patient completed treatment for COVID-19, then develop superimposed bacterial pneumonia with Klebsiella. She is now extubated, but remains confused and requiring high flow O2 and intermittent BiPAP. 06/01. Patient remains intubated and on ventilatory support today. Patient has multiple organ system failure and has poor prognosis. Patient did not experience significant medical decompensation overnight but no improvement with current therapy. 06/02. Remains intubated. her BP is elevated. Started on nicardipine drip. Cardiology following. 06/03-06/04. BP is better. Hb stable. Completed remdesivir. ID , Cardiology and Critical care team on board 06/05. Bump in creatinine. I/O reviewed. Nephrology consulted. 06/06. Has slight improvement in renal function. Nephrology on board. On SBT today. Vitals stable. 06/07. Stable renal function. No need for HD as per nephrology. She is making urine. Plan for SBT. 06/08. Off sedation and very lethargic. Her BUN is going up - effect of steroids vs GI bleed. Her hemoglobin remains stable. Will check stool guaiac. Nephrology is following. WBC bumped to 16 today. 06/09: remains intubated, wbc trended up, Cr slightly trending down. cont TF, wean off vent as tolerated. 06/10: Cr trending down, cont to wean off vent as tolerated. 06/10; Cr much improved, cont iv fluid, tolerating tube feeding. stopped vac, iv cefepime for total 10 days. 06/11; creatinine 1.5 today, sodium level has normalized. Continue tube feeding, continue cefepime for 10 days. Continue to wean off as tolerated. 06/12: planned for extubation today 06/13: extubated yesterday, now on Bipap 06/14: patient on Bipap, remains on TF, restraint. cont to follow clinically 06/15: patient on high flow O2,remains on TF, restraint. cont to follow clinically. transfer to [facility] 06/16: Patient remains on high flow O2, intermittently on BiPAP. Tolerating tube feeding. cont to monitor at IMCU 06/17; patient on BiPAP. Remains confused and on tube feeding. Continue to monitor at IMCU. Wean off O2 as tolerated. 06/18; patient feels slightly better on high flow oxygen, minimally communicative, stable to be transferred out of [facility] to telemetry 06/20; remains hypoxic on high flow oxygen, today noncommunicative sleeping all the time, vital signs noted 06/21; more alert and awake confused at times and pulling, restraint for safety, on high flow oxygen We will request physical therapy once more stable 06/22; PT unable to assess due to safety concerns, remains hypoxic on high flow oxygen, BiPAP at night. minimally communicative 06/23: Remains on high flow O2, order for speech eval, continue tube feeding. Creatinine noted to be elevated today -2.4, increase IV fluid hydration. Subjective Date of service: 06/23/20 Principal diagnosis: Ac hypoxemic resp failure; COVID-19; pneumonia; CHF; Pulm HTN; OHS; DM II Interval history: Patient seen and examined Vitals reviewed, confused Patient on high flow O2 Tolerating tube feeding Discussed with RN at the bedside Objective - Exam Narrative Exam: General appearance: Present: mild distress, well-nourished, obese (Morbidly obese), other (On high flow oxygen) - EENT Eyes: Present: PERRL, EOM intact - Neck Neck: Present: supple, normal ROM - Respiratory Respiratory effort: normal Respiratory: bilateral: diminished, rhonchi, negative: rales, wheezing - Cardiovascular Rhythm: regular Heart Sounds: Present: S1 & S2 - Extremities Extremities: no ischemia, No edema - Abdominal General gastrointestinal: soft, non-tender, non-distended, normal bowel sounds - Integumentary Integumentary: Present: clear, warm - Psychiatric Psychiatric: other (Minimally communicative) - Neurologic Neurologic: other (Minimally communicative) - Constitutional Vitals: Vital Signs - 12hr 06/23/20 06/23/20 06/23/20 05:52 08:00 09:31 Temperature 98.2 F Pulse Rate 78 78 Respiratory 20 Rate Blood Pressure 150/63 Blood Pressure 150/63 [Left] O2 Sat by Pulse 94 97 Oximetry 06/23/20 06/23/20 06/23/20 09:32 10:00 11:31 Temperature 97.5 F L Pulse Rate 78 84 Respiratory 18 20 Rate Blood Pressure 150/63 155/62 Blood Pressure [Left] O2 Sat by Pulse 92 92 Oximetry 06/23/20 15:01 Temperature Pulse Rate 84 Respiratory Rate Blood Pressure 155/62 Blood Pressure [Left] O2 Sat by Pulse Oximetry - Labs CBC & Chem 7: 09/15/20 05:49 06/24/20 05:35 Labs: Abnormal lab results 06/22/20 06/22/20 06/23/20 Range/Units 16:58 22:26 05:49 RBC 2.58 L (3.65-5.03) M/mm3 Hgb 7.4 L (10.1-14.3) gm/dl Hct 23.2 L (30.3-42.9) % RDW 17.0 H (13.2-15.2) % Treasure % (Auto) 11.2 H (0.0-7.3) % Lymph # 1.0 L (1.2-5.4) K/mm3 POC ABG pCO2 (32.0-48.0) mmHg POC ABG pO2 (83-108) mmHg ABG Hemoglobin (12.0-17.5) ABG Oxyhemoglobin (94-98) BUN (7-17) mg/dL Creatinine (0.6-1.2) mg/dL Glucose (65-100) mg/dL POC Glucose 230 H 195 H (70-105) 06/23/20 06/23/20 06/23/20 Range/Units 05:49 05:50 12:29 RBC (3.65-5.03) M/mm3 Hgb (10.1-14.3) gm/dl Hct (30.3-42.9) % RDW (13.2-15.2) % Treasure % (Auto) (0.0-7.3) % Lymph # (1.2-5.4) K/mm3 POC ABG pCO2 (32.0-48.0) mmHg POC ABG pO2 (83-108) mmHg ABG Hemoglobin (12.0-17.5) ABG Oxyhemoglobin (94-98) BUN 68 H (7-17) mg/dL Creatinine 2.4 H (0.6-1.2) mg/dL Glucose 198 H (65-100) mg/dL POC Glucose 202 H 218 H (70-105) 06/23/20 06/23/20 Range/Units 12:34 16:02 RBC (3.65-5.03) M/mm3 Hgb (10.1-14.3) gm/dl Hct (30.3-42.9) % RDW (13.2-15.2) % Treasure % (Auto) (0.0-7.3) % Lymph # (1.2-5.4) K/mm3 POC ABG pCO2 54.7 H (32.0-48.0) mmHg POC ABG pO2 68.8 L (83-108) mmHg ABG Hemoglobin 9.8 L (12.0-17.5) ABG Oxyhemoglobin 92.6 L (94-98) BUN (7-17) mg/dL Creatinine (0.6-1.2) mg/dL Glucose (65-100) mg/dL POC Glucose 190 H (70-105)
[2020-06-23] MEDS: INSULIN GLARGINE 100 UNITS/ML SUB-Q SCH (22:11)
[2020-06-24] MEDS: INSULIN LISPRO 100 UNIT/ML VIAL 3 mL SUB-Q SCH ×4 (00:53→18:59)
[2020-06-24] MEDS: hydrALAZINE 25 MG TAB PO SCH ×3 (04:59→21:16)
[2020-06-24] MEDS: METOCLOPRAMIDE 10 MG/2 ML INJ IV SCH ×4 (04:59→21:17)
[2020-06-24 06:16] LABS: Calcium 8.9 mg/dL (8.4-10.2)
[2020-06-24] MEDS: LANSOPRAZOLE 30 MG SOLUTAB FEEDTUBE SCH ×2 (10:28→21:16)
[2020-06-24] MEDS: levETIRAcetam 500 MG/5 ML ORAL LIQD PO SCH ×2 (10:28→21:16)
[2020-06-24] MEDS: APIXABAN 5 MG TAB PO SCH ×2 (10:28→21:16)
[2020-06-24] MEDS: SODIUM BICARBONATE 650 MG TAB PO SCH ×2 (10:28→21:15)
[2020-06-24] MEDS: SENNOSIDES ORAL LIQD 8.8 MG/5 ML ORAL LIQD FEEDTUBE SCH ×2 (10:29→21:16)
[2020-06-24] MEDS: carvediloL 12.5 MG TAB PO SCH ×2 (10:29→21:18)
[2020-06-24] MEDS: cloNIDine 0.2 MG TAB PO SCH ×2 (10:30→21:15)
[2020-06-24] MEDS: amLODIPine 10 MG TAB PO SCH (10:30)
[2020-06-24] MEDS: GLYCOPYRROLATE 2 MG TAB PO SCH ×3 (10:36→21:16)
--- NOTE | 2020-06-24 10:51 | Progress Note ---
Assessment and Plan - Patient Problems (1) Acute kidney injury (AVANI) with acute tubular necrosis (ATN) Current Visit: Yes Status: Acute Plan to address problem: Kidney function had been improving. Patient is nonoliguric. Kidney function started worsening 06/23 and prerenal azotemia was suspected. Hypotensive medications decreased as patient had episodes of hypotension. Kidney function is unchanged from yesterday. No further episodes of hypotension. Follow-up electrolytes and renal function (2) Hypernatremia Current Visit: Yes Status: Acute Plan to address problem: Sodium has improved to normal. Continue free water intake orally (3) Acute hypoxemic respiratory failure Current Visit: Yes Status: Acute Plan to address problem: Being managed by pulmonary. S/p Extubation 06/12. Remains stable. Discharge planning by primary attending (4) Cardiac arrest Current Visit: Yes Status: Acute Plan to address problem: Patient is improving (5) Metabolic encephalopathy Current Visit: Yes Status: Acute Plan to address problem: Mental status is improving (6) Pneumonia due to COVID-19 virus Current Visit: Yes Status: Acute Plan to address problem: Patient has completed 5 days of Remdesevir. Completed course of steroids. Patient is improving (7) Cardiomyopathy Current Visit: No Status: Acute Qualifiers: Cardiomyopathy type: unspecified Qualified Code(s): I42.9 - Cardiomyopathy, unspecified Plan to address problem: Patient has peripheral edema and chest x-ray also suggests some vascular congestion. Follow-up electrolytes and renal function and if improves, will start Lasix p.o. (8) Hyperglycemia due to type 2 diabetes mellitus Current Visit: No Status: Acute Qualifiers: Diabetes mellitus middle or intermediate school principal insulin use: without middle or intermediate school principal use Qualified Code(s): E11.65 - Type 2 diabetes mellitus with hyperglycemia Plan to address problem: Blood sugar management by primary attending Subjective Date of service: 06/24/20 Principal diagnosis: Ac hypoxemic resp failure; COVID-19; pneumonia; CHF; Pulm HTN; OHS; DM II Interval history: I did not do physical exam at the bedside due to PPE conservation with the current COVID-19 pandemic, Objective - Exam Narrative Exam: I did not do physical exam at the bedside due to PPE conservation with the current COVID-19 pandemic - Vital Signs Vital signs: Vital Signs - 12hr 06/24/20 06/24/20 06/24/20 00:35 04:30 04:50 Temperature 97.6 F Pulse Rate 77 75 75 Respiratory 21 16 26 H Rate Blood Pressure 168/66 O2 Sat by Pulse 94 100 93 Oximetry 06/24/20 06/24/20 06/24/20 08:00 10:29 10:30 Temperature Pulse Rate 75 75 Respiratory Rate Blood Pressure 168/66 168/66 O2 Sat by Pulse 95 Oximetry - Lab 06/23/20 05:49 06/24/20 05:35 Most recent lab results ABG pH 7.360 (7.320-7.450) 06/23/20 12:34 ABG pCO2 48.2 mm Hg 06/20/20 16:35 ABG pO2 59.6 mm Hg (80.0-90.0) L 06/20/20 16:35 ABG HCO3 28.7 mmol/L (20.0-26.0) H 06/20/20 16:35 ABG O2 Saturation 93.5 % (95.0-99.0) L 06/20/20 16:35 Calcium 8.9 mg/dL (8.4-10.2) 06/24/20 05:35 Urine Creatinine 82.2 mg/dL (0.1-20.0) H 06/06/20 04:00 Urine Sodium 20 mmol/L 06/06/20 04:00 Urine Total Protein 196 mg/dL (5-11.8) H 06/06/20 04:00 Medications & Allergies - Medications Allergies/Adverse Reactions: Allergies No Known Allergies Allergy (Verified 01/21/20 12:28) Home Medications: Home Medications Medication Instructions Recorded Confirmed Last Taken Type AtorvaSTATin [Lipitor] 20 mg PO QHS 05/12/20 05/29/20 Unknown History lisinopriL [Zestril TAB] 40 mg PO QDAY 05/12/20 05/29/20 Unknown History metFORMIN [Glucophage] 850 mg PO BID 05/12/20 05/29/20 Unknown History Acetaminophen [Acetaminophen TAB] 650 mg PO Q4H PRN tablet 05/13/20 05/29/20 Unknown Rx Dicyclomine [Bentyl] 20 mg PO BID #20 tablet 05/13/20 05/29/20 Unknown Rx Famotidine [Pepcid] 20 mg PO BID #30 tablet 05/13/20 05/29/20 Unknown Rx carvediloL [Coreg] 6.25 mg PO BID #60 05/13/20 05/29/20 Unknown Rx Active Medications: Generic Name Dose Route Start Last Admin Trade Name Emeterioq PRN Reason Stop Dose Admin Acetaminophen 650 mg 06/09/20 10:57 06/22/20 11:58 Tylenol FEEDTUBE 650 mg Q6H PRN Administration Fever >101 Amlodipine Besylate 10 mg 06/02/20 11:00 06/24/20 10:30 Amlodipine PO 10 mg DAILY NELSON Administration Lipase/Protease/Amylase 1 each 05/29/20 13:[address] 10,500 Unit FEEDTUBE PRN PRN For Clogged Feeding Tube Apixaban 5 mg 06/19/20 22:00 06/24/20 10:28 Eliquis PO 06/26/20 10:01 5 mg Q12HR NELSON Administration Protocol Carvedilol 12.5 mg 06/03/20 10:00 06/24/20 10:29 Coreg PO 12.5 mg BID NELSON Administration Clonidine HCl 0.2 mg 06/23/20 22:00 06/24/20 10:30 Catapres PO 0.2 mg Q12HR NELSON Administration Glycopyrrolate 2 mg 06/09/20 14:00 06/24/20 10:36 Glycopyrrolate PO 2 mg TID NELSON Administration Hydralazine HCl 50 mg 06/03/20 09:00 06/24/20 04:59 Apresoline PO 50 mg Q8HR NELSON Administration Hydrophilic Ointment 1 applic 05/28/20 13:49 Vaseline Lip Therapy TP Q2HR PRN Dry Lips Sodium Chloride 1,000 mls @ 75 mls/hr 06/23/20 17:30 Nacl 0.9% 1000 Ml IV DIRECT NELSON Insulin Glargine 10 units 06/08/20 22:00 06/23/20 22:11 Lantus SUB-Q 10 units QHS NELSON Administration Insulin Human Lispro 0 unit 05/29/20 18:00 06/24/20 04:59 Humalog SUB-Q 3 unit Q6H NELSON Administration Protocol Labetalol HCl 20 mg 06/03/20 09:00 06/23/20 18:37 Labetalol IV 20 mg Q4H PRN Administration HYPERTENSION Lansoprazole 30 mg 06/05/20 22:00 06/24/20 10:28 Prevacid Solutab FEEDTUBE 30 mg BID NELSON Administration Levetiracetam 500 mg 06/16/20 11:00 06/24/20 10:28 Keppra PO 500 mg BID NELSON Administration Metoclopramide HCl 10 mg 06/10/20 20:00 06/24/20 10:35 Reglan IV 10 mg Q6H NELSON Administration Multi-Ingred Cream/Lotion/Oil/Oint 1 applic 05/28/20 13:49 Artificial Tears Ophth Oint OU Q4HR PRN Dry Eye(s) Ondansetron HCl 4 mg 06/02/20 09:00 06/09/20 16:48 Zofran IV 4 mg Q8H PRN Administration Nausea And Vomiting Scopolamine 1 each 06/05/20 14:00 06/23/20 09:33 Transderm-Scop TD 1 each Q3D NELSON Administration Senna 17.6 mg 06/03/20 10:00 06/24/20 10:29 Senokot FEEDTUBE 17.6 mg BID NELSON Administration Simple Syrup 15 ml 05/29/20 13:39 Simple Syrup FEEDTUBE PRN PRN Hypoglycemia Simple Syrup 30 ml 05/29/20 13:39 Simple Syrup FEEDTUBE PRN PRN Hypoglycemia Sodium Bicarbonate 325 mg 05/29/20 13:39 Sodium Bicarbonate FEEDTUBE PRN PRN For Clogged Feeding Tube Sodium Bicarbonate 650 mg 06/06/20 10:00 06/24/20 10:28 Sodium Bicarbonate PO 650 mg BID NELSON Administration Sodium Chloride 10 ml 05/28/20 22:00 06/23/20 22:14 Sodium Chloride Flush Syringe 10 Ml IV 10 ml BID NELSON Administration Sodium Chloride 10 ml 05/28/20 19:08 06/16/20 17:50 Sodium Chloride Flush Syringe 10 Ml IV 10 ml PRN PRN Administration LINE FLUSH
--- NOTE | 2020-06-24 14:45 | Progress Note ---
Assessment and Plan --COVID-19 positive 05/28/2020 --Superficial left cephalic vein DVT/elevated D-dimers[COVID 19] Patient is on heparin drip from 05/29/20 D-dimers improved [id number] DC heparin drip, Discussed with ID, Eliquis 5 mg twice a day for 1 week[per ID] stop date 06/26/2020 -- Acute hypoxemic respiratory failure From COVID-19 viral infection extubated on , on high flow o2 -- s/p PEA Cardiac arrest Cardiology team on board Conservative management as per cardiology -- Acute metabolic encephalopathy, POA likely from sepsis and s/p cardiac arrest with possible anoxic injury -- Acute renal failure: likely ATN Cr slowly improving Avoid ACEI and other nephrotoxic medications Nephrology following -- Coronavirus infection with b/l PNA Completed remdesivir on 06/02 Completed dexamethasone - Last dose 06/07 ID recs appreciated. --Klebsiella pneumonia: Completed antibiotics --CHF (congestive heart failure) Cardiology following. Ef 45% -- Coffee ground emesis -Stress ulcers Possible stress ulcers, On PPI H/H remains stable GI evaluation if Hb drops again -- Hypertension; moderate control Continue amlodipine, coreg, clonidine and hydralazine --Mild LFT elevation: likely from COVID-19. -- DVT prophylaxis Eliquis, SCD to bilateral lower extremities while in bed -- Advance care planning Patient is full code. poor prognosis Patient is critically ill with multiple medical problems Poor prognosis Brief history: 64 YO Female with a medical history of HTN, Diastolic CHF, Pulmonary HTN, DM, Obesity Hypoventilation Syndrome presents to ED for evaluation of shortness of breath. As per staff, the EMS was notified for difficulty breathing. Upon arrival to the patient's home the patient was found to be in distress and was subsequently transported to [facility] for further evaluation and care. In route to [facility] the patient developed cardiac arrest and was treated in accordance with ACLS protocol with return of ROSC. Patient was seen and evaluated in the emergency department and was intubated and placed on ventilatory support. Patient admitted to ICU. Critical care team consulted in ED. She was found to have COVID-19 infection and was started on steroids and remdesivir. ID was consulted. Cardiology was consulted for her systolic heart failure and cardiac arrest. Patient completed treatment for COVID-19, then develop superimposed bacterial pneumonia with Klebsiella. She is now extubated, but remains confused and requiring high flow O2 and intermittent BiPAP. 06/01. Patient remains intubated and on ventilatory support today. Patient has multiple organ system failure and has poor prognosis. Patient did not experience significant medical decompensation overnight but no improvement with current therapy. 06/02. Remains intubated. her BP is elevated. Started on nicardipine drip. Cardiology following. 06/03-06/04. BP is better. Hb stable. Completed remdesivir. ID , Cardiology and Critical care team on board 06/05. Bump in creatinine. I/O reviewed. Nephrology consulted. 06/06. Has slight improvement in renal function. Nephrology on board. On SBT today. Vitals stable. 06/07. Stable renal function. No need for HD as per nephrology. She is making urine. Plan for SBT. 06/08. Off sedation and very lethargic. Her BUN is going up - effect of steroids vs GI bleed. Her hemoglobin remains stable. Will check stool guaiac. Nephrology is following. WBC bumped to 16 today. 06/09: remains intubated, wbc trended up, Cr slightly trending down. cont TF, wean off vent as tolerated. 06/10: Cr trending down, cont to wean off vent as tolerated. 06/10; Cr much improved, cont iv fluid, tolerating tube feeding. stopped vac, iv cefepime for total 10 days. 06/11; creatinine 1.5 today, sodium level has normalized. Continue tube feeding, continue cefepime for 10 days. Continue to wean off as tolerated. 06/12: planned for extubation today 06/13: extubated yesterday, now on Bipap 06/14: patient on Bipap, remains on TF, restraint. cont to follow clinically 06/15: patient on high flow O2,remains on TF, restraint. cont to follow clinically. transfer to [facility] 06/16: Patient remains on high flow O2, intermittently on BiPAP. Tolerating tube feeding. cont to monitor at IMCU 06/17; patient on BiPAP. Remains confused and on tube feeding. Continue to monitor at IMCU. Wean off O2 as tolerated. 06/18; patient feels slightly better on high flow oxygen, minimally communicative, stable to be transferred out of [facility] to telemetry 06/20; remains hypoxic on high flow oxygen, today noncommunicative sleeping all the time, vital signs noted 06/21; more alert and awake confused at times and pulling, restraint for safety, on high flow oxygen We will request physical therapy once more stable 06/22; PT unable to assess due to safety concerns, remains hypoxic on high flow oxygen, BiPAP at night. minimally communicative 06/23: Remains on high flow O2, order for speech eval, continue tube feeding. Creatinine noted to be elevated today -2.4, increase IV fluid hydration. 06/24: Kidney function started worsening 06/23 -likely from hypotension. patient had episodes of hypotension on 06/22. Kidney function is unchanged from yesterday. No further episodes of hypotension. Follow-up electrolytes and renal function. patient remains on high flow O2 Subjective Date of service: 06/24/20 Principal diagnosis: Ac hypoxemic resp failure; COVID-19; pneumonia; CHF; Pulm HTN; OHS; DM II Interval history: Patient seen and examined Vitals reviewed, confused Patient on high flow O2 Tolerating tube feeding Discussed with RN at the bedside Objective - Exam Narrative Exam: General appearance: Present: mild distress, well-nourished, obese (Morbidly obese), other (On high flow oxygen) - EENT Eyes: Present: PERRL, EOM intact - Neck Neck: Present: supple, normal ROM - Respiratory Respiratory effort: normal Respiratory: bilateral: diminished, rhonchi, negative: rales, wheezing - Cardiovascular Rhythm: regular Heart Sounds: Present: S1 & S2 - Extremities Extremities: no ischemia, No edema - Abdominal General gastrointestinal: soft, non-tender, non-distended, normal bowel sounds - Integumentary Integumentary: Present: clear, warm - Psychiatric Psychiatric: other (Minimally communicative) - Neurologic Neurologic: other (Minimally communicative) - Constitutional Vitals: Vital Signs - 12hr 06/24/20 06/24/20 06/24/20 04:30 04:50 08:00 Temperature 97.6 F Pulse Rate 75 75 Respiratory 16 26 H Rate Blood Pressure 168/66 O2 Sat by Pulse 100 93 95 Oximetry 06/24/20 06/24/20 06/24/20 10:00 10:29 10:30 Temperature Pulse Rate 75 75 Respiratory 20 Rate Blood Pressure 168/66 168/66 O2 Sat by Pulse Oximetry 06/24/20 06/24/20 11:32 13:41 Temperature 98.4 F Pulse Rate 90 88 Respiratory 20 Rate Blood Pressure 188/74 173/84 O2 Sat by Pulse 94 Oximetry - Labs CBC & Chem 7: 06/23/20 05:49 06/24/20 05:35 Labs: Abnormal lab results 06/23/20 06/23/20 06/24/20 Range/Units 16:02 22:22 01:06 BUN (7-17) mg/dL Creatinine (0.6-1.2) mg/dL Glucose (65-100) mg/dL POC Glucose 190 H 166 H 171 H (70-105) 06/24/20 06/24/20 06/24/20 Range/Units 04:48 05:35 11:48 BUN 75 H (7-17) mg/dL Creatinine 2.6 H (0.6-1.2) mg/dL Glucose 179 H (65-100) mg/dL POC Glucose 172 H 153 H (70-105)
[2020-06-24] MEDS: LIPASE 10,500/PROTEASE 25,000/AMYLASE 43,750 (UNITS) DR CAP FEEDTUBE PRN ×2 (16:08→22:51)
[2020-06-24] MEDS: INSULIN GLARGINE 100 UNITS/ML SUB-Q SCH (21:16)
[2020-06-24] MEDS: SODIUM CHLORIDE 0.9% 1000 ML 1,000 ML IV SCH (22:51)
[2020-06-25] MEDS: INSULIN LISPRO 100 UNIT/ML VIAL 3 mL SUB-Q SCH ×4 (01:16→19:04)
--- NOTE | 2020-06-25 02:03 | XRay Report ---
ABDOMEN 1 VIEW(S) INDICATION / CLINICAL INFORMATION: douhoff placement. COMPARISON: None available. FINDINGS: TUBES / LINES: Feeding tube tip at distal stomach. BOWEL GAS PATTERN: No significant abnormality. ADDITIONAL FINDINGS: No significant additional findings. Signer Name: Kendall Mcbride MD Signed: 06/25/2020 1:58 AM Workstation Name: [id number]
[2020-06-25] MEDS: METOCLOPRAMIDE 10 MG/2 ML INJ IV SCH ×4 (04:06→23:42)
[2020-06-25] MEDS: hydrALAZINE 25 MG TAB PO SCH ×3 (05:12→23:46)
[2020-06-25] MEDS: GLYCOPYRROLATE 2 MG TAB PO SCH ×3 (07:50→23:42)
[2020-06-25] MEDS: SODIUM BICARBONATE 650 MG TAB PO SCH ×2 (11:04→23:41)
[2020-06-25] MEDS: APIXABAN 5 MG TAB PO SCH ×2 (11:04→23:41)
[2020-06-25] MEDS: carvediloL 12.5 MG TAB PO SCH ×2 (11:05→23:46)
[2020-06-25] MEDS: amLODIPine 10 MG TAB PO SCH (11:05)
[2020-06-25] MEDS: cloNIDine 0.2 MG TAB PO SCH ×2 (11:06→23:46)
[2020-06-25] MEDS: levETIRAcetam 500 MG/5 ML ORAL LIQD PO SCH ×2 (11:07→23:41)
[2020-06-25] MEDS: SENNOSIDES ORAL LIQD 8.8 MG/5 ML ORAL LIQD FEEDTUBE SCH ×2 (11:07→23:42)
[2020-06-25] MEDS: LANSOPRAZOLE 30 MG SOLUTAB FEEDTUBE SCH ×2 (11:13→23:42)
[2020-06-25] MEDS: SODIUM CHLORIDE 0.9% 1000 ML 1,000 ML IV SCH (11:14)
--- NOTE | 2020-06-25 13:30 | Progress Note ---
Assessment and Plan --COVID-19 positive 05/28/2020 --Superficial left cephalic vein DVT/elevated D-dimers[COVID 19] Patient is on heparin drip from 05/29/20 D-dimers improved [phone] DC heparin drip, Discussed with ID, Eliquis 5 mg twice a day for 1 week[per ID] stop date 06/26/2020 -- Acute hypoxemic respiratory failure From COVID-19 viral infection extubated on , on high flow o2 -- s/p PEA Cardiac arrest Cardiology team on board Conservative management as per cardiology -- Acute metabolic encephalopathy, POA likely from sepsis and s/p cardiac arrest with possible anoxic injury -- Acute renal failure: likely ATN Cr slowly improving Avoid ACEI and other nephrotoxic medications Nephrology following -- Coronavirus infection with b/l PNA Completed remdesivir on 06/02 Completed dexamethasone - Last dose 06/07 ID recs appreciated. --Klebsiella pneumonia: Completed antibiotics --CHF (congestive heart failure) Cardiology following. Ef 45% -- Coffee ground emesis -Stress ulcers Possible stress ulcers, On PPI H/H remains stable GI evaluation if Hb drops again -- Hypertension; moderate control Continue amlodipine, coreg, clonidine and hydralazine --Mild LFT elevation: likely from COVID-19. -- DVT prophylaxis Eliquis, SCD to bilateral lower extremities while in bed -- Advance care planning Patient is full code. poor prognosis Patient is critically ill with multiple medical problems Poor prognosis Brief history: 64 YO Female with a medical history of HTN, Diastolic CHF, Pulmonary HTN, DM, Obesity Hypoventilation Syndrome presents to ED for evaluation of shortness of breath. As per staff, the EMS was notified for difficulty breathing. Upon arrival to the patient's home the patient was found to be in distress and was subsequently transported to [facility] for further evaluation and care. In route to [facility] the patient developed cardiac arrest and was treated in accordance with ACLS protocol with return of ROSC. Patient was seen and evaluated in the emergency department and was intubated and placed on ventilatory support. Patient admitted to ICU. Critical care team consulted in ED. She was found to have COVID-19 infection and was started on steroids and remdesivir. ID was consulted. Cardiology was consulted for her systolic heart failure and cardiac arrest. Patient completed treatment for COVID-19, then develop superimposed bacterial pneumonia with Klebsiella. She is now extubated, but remains confused and requiring high flow O2 and intermittent BiPAP. 06/01. Patient remains intubated and on ventilatory support today. Patient has multiple organ system failure and has poor prognosis. Patient did not experience significant medical decompensation overnight but no improvement with current therapy. 06/02. Remains intubated. her BP is elevated. Started on nicardipine drip. Cardiology following. 06/03-06/04. BP is better. Hb stable. Completed remdesivir. ID , Cardiology and Critical care team on board 06/05. Bump in creatinine. I/O reviewed. Nephrology consulted. 06/06. Has slight improvement in renal function. Nephrology on board. On SBT today. Vitals stable. 06/07. Stable renal function. No need for HD as per nephrology. She is making urine. Plan for SBT. 06/08. Off sedation and very lethargic. Her BUN is going up - effect of steroids vs GI bleed. Her hemoglobin remains stable. Will check stool guaiac. Nephrology is following. WBC bumped to 16 today. 06/09: remains intubated, wbc trended up, Cr slightly trending down. cont TF, wean off vent as tolerated. 06/10: Cr trending down, cont to wean off vent as tolerated. 06/10; Cr much improved, cont iv fluid, tolerating tube feeding. stopped vac, iv cefepime for total 10 days. 06/11; creatinine 1.5 today, sodium level has normalized. Continue tube feeding, continue cefepime for 10 days. Continue to wean off as tolerated. 06/12: planned for extubation today 06/13: extubated yesterday, now on Bipap 06/14: patient on Bipap, remains on TF, restraint. cont to follow clinically 06/15: patient on high flow O2,remains on TF, restraint. cont to follow clinically. transfer to [facility] 06/16: Patient remains on high flow O2, intermittently on BiPAP. Tolerating tube feeding. cont to monitor at IMCU 06/17; patient on BiPAP. Remains confused and on tube feeding. Continue to monitor at IMCU. Wean off O2 as tolerated. 06/18; patient feels slightly better on high flow oxygen, minimally communicative, stable to be transferred out of [facility] to telemetry 06/20; remains hypoxic on high flow oxygen, today noncommunicative sleeping all the time, vital signs noted 06/21; more alert and awake confused at times and pulling, restraint for safety, on high flow oxygen We will request physical therapy once more stable 06/22; PT unable to assess due to safety concerns, remains hypoxic on high flow oxygen, BiPAP at night. minimally communicative 06/23: Remains on high flow O2, order for speech eval, continue tube feeding. Creatinine noted to be elevated today -2.4, increase IV fluid hydration. 06/24: Kidney function started worsening 06/23 -likely from hypotension. patient had episodes of hypotension on 06/22. Kidney function is unchanged from yesterday. No further episodes of hypotension. Follow-up electrolytes and renal function. patient remains on high flow O2 06/25: patient on 15L o2 with n/c. on Bipap at night. follow renal function and follow bmp . Placement not possible as patient unfunded. wean off o2 as tolerated. Subjective Date of service: 06/25/20 Principal diagnosis: Ac hypoxemic resp failure; COVID-19; pneumonia; CHF; Pulm HTN; OHS; DM II Interval history: Patient seen and examined Vitals reviewed, confused Patient on high flow O2 Tolerating tube feeding Discussed with RN at the bedside Objective - Exam Narrative Exam: General appearance: Present: mild distress, well-nourished, obese (Morbidly obese), other (On high flow oxygen) - EENT Eyes: Present: PERRL, EOM intact - Neck Neck: Present: supple, normal ROM - Respiratory Respiratory effort: normal Respiratory: bilateral: diminished, rhonchi, negative: rales, wheezing - Cardiovascular Rhythm: regular Heart Sounds: Present: S1 & S2 - Extremities Extremities: no ischemia, No edema - Abdominal General gastrointestinal: soft, non-tender, non-distended, normal bowel sounds - Integumentary Integumentary: Present: clear, warm - Psychiatric Psychiatric: other (Minimally communicative) - Neurologic Neurologic: other (Minimally communicative) - Constitutional Vitals: Vital Signs - 12hr 06/25/20 06/25/20 06/25/20 04:05 11:05 11:06 Temperature 97.9 F Pulse Rate 87 90 Respiratory 16 Rate Blood Pressure 178/71 138/51 138/51 O2 Sat by Pulse 100 Oximetry 06/25/20 06/25/20 11:45 13:15 Temperature 98.0 F Pulse Rate 89 Respiratory 22 Rate Blood Pressure 147/54 147/54 O2 Sat by Pulse 93 Oximetry - Labs CBC & Chem 7: 06/23/20 05:49 06/24/20 05:35 Labs: Abnormal lab results 06/24/20 06/24/20 06/25/20 Range/Units 16:38 21:52 12:00 POC Glucose 123 H 115 H 203 H (70-105)
--- NOTE | 2020-06-25 13:55 | Progress Note ---
Assessment and Plan Acute hypoxemic respiratory failure s/p MVS Severe COVID infection Multifocal pneumonia Morbid obesity Acute toxic metabolic encephalopathy AVANI secondary to COVID/vasomotor nephropathy Bilateral pulmonary edema. Bilateral pleural effusions. History of congestive heart failure. Morbid obesity. History of pulmonary hypertension. History of hypertension. Diabetes. Obesity hypoventilation syndrome. Elevated serum inflammatory markers to include D-dimers and LDH levels. AVANI Metabolic acidosis. Oropharyngeal dysphagia. -Continue with BIPAP qhs and HFOT during the day -Incentive spirometry -Wean supplemental oxygen to keep O2 sats >90% -PT/OT, increase activity -Enteric nutrition with glycemic control, aspiration precautions -Continue to avoid nephrotoxins, closely monitor renal function, dose all medic ations for renal function -Continue all supportive care - continue bronchodilators with pulmonary hygiene per RT - continue to avoid benzodiazepines, reduce the possibility of delirium - conservative fluid management measures as tolerated by hemodynamics and renal function - Bronchodilators with pulmonary hygiene per RT - Accuchecks with glycemic control per SSI (While critically ill target blood glucose of 140-180 mg/dL; avoid hypoglycemia) - Maintenance of sleep-wake cycle, avoid delirium - Stress ulcer prophylaxis -Famotidine - Mobility protocol, off loading and skin assessment for pressure ulcer prevention - Monitor hemodynamics closely - Supportive transfusions as indicated to keep HgB >7g/dL COVID SPECIFIC INTERVENTIONS -Airborne, contact isolation for COVID per facility protocols - s/p Remdesivir -IV steroids-Dexamethasone -Trend d-dimer,and other inflammatory markers per facility protocol -Convalescent plasma therapy per facility protocol -Continue all supportive care Discussed with the ICU team-RT,RN, Life threatening condition- COVID 19 ARDS acute hypoxemic respiratory failure s/p MVS Mortality/Morbidity- High Complexity of medical decision making- High CONDITION: FAIR PROGNOSIS: GUARDED CODE STATUS: FULL CODE Subjective Date of service: 06/25/20 Principal diagnosis: Ac hypoxemic resp failure; COVID-19; pneumonia; CHF; Pulm HTN; OHS; DM II Interval history: Patient is seen today for: Ac hypoxemic resp failure; Coronavirus-19 infection; pneumonia; Pulmonary edema; Bilateral pleural effusions; CHF; Morbid obesity; pulmonary hypertension; OHS; DM II Seen and examined at bedside; 24hour events reviewed; nursing and respiratory care staff consulted; no adverse overnight events reported to me; resting peacefully in bed; chronically ill looking, on going need for high flow oxygen- Vapotherm- 15L 40% No overnight fevers, no vomiting, Objective Vital Signs - 12hr 06/25/20 06/25/20 06/25/20 04:05 11:05 11:06 Temperature 97.9 F Pulse Rate 87 90 Respiratory 16 Rate Blood Pressure 178/71 138/51 138/51 O2 Sat by Pulse 100 Oximetry 06/25/20 06/25/20 11:45 13:15 Temperature 98.0 F Pulse Rate 89 Respiratory 22 Rate Blood Pressure 147/54 147/54 O2 Sat by Pulse 93 Oximetry Constitutional: appears uncomfortable, other (elderly looking obese female on HFNC with mildly increased respiratory effort at rest) Eyes: non-icteric ENT: oropharynx dry Neck: supple, no lymphadenopathy, no JVD, other (large neck circumference) Effort: mildly labored Ascultation: Bilateral: clear, diminished breath sounds, rales, rhonchi (scant) Percussion: Bilateral: not dull Cardiovascular: regular rate and rhythm, other (S1,S2) Gastrointestinal: normoactive bowel sounds, soft, non-tender, non-distended Integumentary: normal Extremities: no cyanosis, no edema, pink and warm, pulses normal, no ischemia or petechiae Neurologic: non-focal exam (grossly), pupils equal and round, other (lethargic) Psychiatric: other (unable to assess re: AMS) CBC and BMP: 06/26/20 06:34 06/26/20 06:34 ABG, PT/INR, D-dimer: ABG ABG pH 7.360 (7.320-7.450) 06/23/20 12:34 POC ABG pCO2 54.7 mmHg (32.0-48.0) H 06/23/20 12:34 ABG pCO2 48.2 mm Hg 06/20/20 16:35 POC ABG pO2 68.8 mmHg (83-108) L 06/23/20 12:34 ABG pO2 59.6 mm Hg (80.0-90.0) L 06/20/20 16:35 POC ABG HCO3 30.2 06/23/20 12:34 ABG O2 Saturation 93.5 % (95.0-99.0) L 06/20/20 16:35 PT/INR, D-dimer PT 14.2 Sec. (12.2-14.9) 05/29/20 15:10 INR 1.08 (0.87-1.13) 05/29/20 15:10 D-Dimer 414.52 ng/mlDDU (0-234) H 06/04/20 04:19 Abnormal lab findings: Abnormal Labs 05/28/20 05/28/20 05/28/20 13:29 13:47 13:47 WBC RBC Hgb Hct RDW 15.3 H Lymph % (Auto) [place] % (Auto) Eos % (Auto) Lymph # [place] # Seg Neutrophils % Seg Neuts % (Manual) Lymphocytes % (Manual) Seg Neutrophils # Seg Neutrophils # Man Lymphocytes # (Manual) Monocytes # (Manual) D-Dimer Heparin Anti-Xa Level ABG pH POC ABG pCO2 POC ABG pO2 ABG pO2 ABG HCO3 ABG O2 Saturation ABG Base Excess ABG Hemoglobin ABG Oxyhemoglobin VBG pH Oxyhemoglobin Sodium Potassium 6.6 H* Chloride 109.2 H Carbon Dioxide 17 L BUN 29 H Creatinine 1.3 H Glucose 265 H POC Glucose 248 H Lactic Acid Calcium 8.1 L AST 63 H Alkaline Phosphatase Lactate Dehydrogenase Total Creatine Kinase 301 H CK-MB (CK-2) 4.3 H C-Reactive Protein Total Protein 5.4 L Albumin 2.6 L Urine WBC (Auto) Urine Creatinine Urine Total Protein Coronavirus (PCR) 05/28/20 05/28/20 05/28/20 13:47 13:47 14:46 WBC RBC Hgb Hct RDW Lymph % (Auto) [place] % (Auto) Eos % (Auto) Lymph # [place] # Seg Neutrophils % Seg Neuts % (Manual) Lymphocytes % (Manual) Seg Neutrophils # Seg Neutrophils # Man Lymphocytes # (Manual) Monocytes # (Manual) D-Dimer Heparin Anti-Xa Level ABG pH POC ABG pCO2 POC ABG pO2 ABG pO2 ABG HCO3 ABG O2 Saturation ABG Base Excess ABG Hemoglobin ABG Oxyhemoglobin VBG pH 7.152 L* Oxyhemoglobin Sodium Potassium 7.2 H* Chloride Carbon Dioxide BUN Creatinine Glucose POC Glucose Lactic Acid 3.40 H* Calcium AST Alkaline Phosphatase Lactate Dehydrogenase Total Creatine Kinase CK-MB (CK-2) C-Reactive Protein Total Protein Albumin Urine WBC (Auto) Urine Creatinine Urine Total Protein Coronavirus (PCR) 05/28/20 05/28/20 05/28/20 15:33 15:33 15:51 WBC RBC Hgb Hct RDW Lymph % (Auto) [place] % (Auto) Eos % (Auto) Lymph # [place] # Seg Neutrophils % Seg Neuts % (Manual) Lymphocytes % (Manual) Seg Neutrophils # Seg Neutrophils # Man Lymphocytes # (Manual) Monocytes # (Manual) D-Dimer 8780.43 H Heparin Anti-Xa Level ABG pH 7.284 L POC ABG pCO2 POC ABG pO2 ABG pO2 273.0 H ABG HCO3 ABG O2 Saturation 99.4 H ABG Base Excess -6.1 L ABG Hemoglobin 17.2 H ABG Oxyhemoglobin VBG pH Oxyhemoglobin Sodium Potassium Chloride Carbon Dioxide BUN Creatinine Glucose 152 H POC Glucose Lactic Acid Calcium AST Alkaline Phosphatase Lactate Dehydrogenase 365 H Total Creatine Kinase CK-MB (CK-2) C-Reactive Protein Total Protein Albumin Urine WBC (Auto) Urine Creatinine Urine Total Protein Coronavirus (PCR) 05/28/20 05/28/20 05/28/20 16:30 20:41 23:20 WBC RBC Hgb Hct RDW Lymph % (Auto) [place] % (Auto) Eos % (Auto) Lymph # [place] # Seg Neutrophils % Seg Neuts % (Manual) Lymphocytes % (Manual) Seg Neutrophils # Seg Neutrophils # Man Lymphocytes # (Manual) Monocytes # (Manual) D-Dimer Heparin Anti-Xa Level ABG pH POC ABG pCO2 POC ABG pO2 ABG pO2 ABG HCO3 ABG O2 Saturation ABG Base Excess ABG Hemoglobin ABG Oxyhemoglobin VBG pH Oxyhemoglobin Sodium Potassium Chloride Carbon Dioxide BUN Creatinine Glucose POC Glucose 225 H 224 H Lactic Acid Calcium AST Alkaline Phosphatase Lactate Dehydrogenase Total Creatine Kinase CK-MB (CK-2) C-Reactive Protein Total Protein Albumin Urine WBC (Auto) 17.0 H Urine Creatinine Urine Total Protein Coronavirus (PCR) 05/28/20 05/29/20 05/29/20 Unknown 04:35 04:43 WBC RBC 3.48 L Hgb 9.8 L Hct 29.4 L RDW 16.0 H Lymph % (Auto) 7.4 L [place] % (Auto) Eos % (Auto) Lymph # 0.7 L [place] # Seg Neutrophils % 89.1 H Seg Neuts % (Manual) Lymphocytes % (Manual) Seg Neutrophils # 8.1 H Seg Neutrophils # Man Lymphocytes # (Manual) Monocytes # (Manual) D-Dimer Heparin Anti-Xa Level ABG pH POC ABG pCO2 POC ABG pO2 ABG pO2 ABG HCO3 19.3 L ABG O2 Saturation ABG Base Excess -4.5 L ABG Hemoglobin 9.7 L ABG Oxyhemoglobin VBG pH Oxyhemoglobin Sodium Potassium Chloride Carbon Dioxide BUN Creatinine Glucose POC Glucose Lactic Acid Calcium AST Alkaline Phosphatase Lactate Dehydrogenase Total Creatine Kinase CK-MB (CK-2) C-Reactive Protein Total Protein Albumin Urine WBC (Auto) Urine Creatinine Urine Total Protein Coronavirus (PCR) Positive A 05/29/20 05/29/20 05/29/20 04:43 15:10 17:17 WBC RBC Hgb 9.3 L Hct 28.7 L RDW Lymph % (Auto) [place] % (Auto) Eos % (Auto) Lymph # [place] # Seg Neutrophils % Seg Neuts % (Manual) Lymphocytes % (Manual) Seg Neutrophils # Seg Neutrophils # Man Lymphocytes # (Manual) Monocytes # (Manual) D-Dimer Heparin Anti-Xa Level ABG pH POC ABG pCO2 POC ABG pO2 ABG pO2 ABG HCO3 ABG O2 Saturation ABG Base Excess ABG Hemoglobin ABG Oxyhemoglobin VBG pH Oxyhemoglobin Sodium Potassium Chloride 110.2 H Carbon Dioxide 18 L BUN 32 H Creatinine 1.4 H Glucose 180 H POC Glucose 147 H Lactic Acid Calcium AST Alkaline Phosphatase Lactate Dehydrogenase Total Creatine Kinase CK-MB (CK-2) C-Reactive Protein Total Protein Albumin Urine WBC (Auto) Urine Creatinine Urine Total Protein Coronavirus (PCR) 05/30/20 05/30/20 05/30/20 00:08 00:12 04:15 WBC RBC Hgb Hct RDW Lymph % (Auto) [place] % (Auto) Eos % (Auto) Lymph # [place] # Seg Neutrophils % Seg Neuts % (Manual) Lymphocytes % (Manual) Seg Neutrophils # Seg Neutrophils # Man Lymphocytes # (Manual) Monocytes # (Manual) D-Dimer Heparin Anti-Xa Level 0.71 H ABG pH 7.460 H POC ABG pCO2 POC ABG pO2 ABG pO2 106.0 H ABG HCO3 18.9 L ABG O2 Saturation ABG Base Excess -4.4 L ABG Hemoglobin 6.8 L ABG Oxyhemoglobin VBG pH Oxyhemoglobin Sodium Potassium Chloride Carbon Dioxide BUN Creatinine Glucose POC Glucose 195 H Lactic Acid Calcium AST Alkaline Phosphatase Lactate Dehydrogenase Total Creatine Kinase CK-MB (CK-2) C-Reactive Protein Total Protein Albumin Urine WBC (Auto) Urine Creatinine Urine Total Protein Coronavirus (PCR) 05/30/20 05/30/20 05/30/20 06:07 08:37 12:33 WBC RBC Hgb Hct RDW Lymph % (Auto) [place] % (Auto) Eos % (Auto) Lymph # [place] # Seg Neutrophils % Seg Neuts % (Manual) Lymphocytes % (Manual) Seg Neutrophils # Seg Neutrophils # Man Lymphocytes # (Manual) Monocytes # (Manual) D-Dimer Heparin Anti-Xa Level 0.85 H ABG pH POC ABG pCO2 POC ABG pO2 ABG pO2 ABG HCO3 ABG O2 Saturation ABG Base Excess ABG Hemoglobin ABG Oxyhemoglobin VBG pH Oxyhemoglobin Sodium Potassium Chloride Carbon Dioxide BUN Creatinine Glucose POC Glucose 182 H 187 H Lactic Acid Calcium AST Alkaline Phosphatase Lactate Dehydrogenase Total Creatine Kinase CK-MB (CK-2) C-Reactive Protein Total Protein Albumin Urine WBC (Auto) Urine Creatinine Urine Total Protein Coronavirus (PCR) 05/30/20 05/30/20 05/30/20 15:58 17:57 23:36 WBC RBC Hgb Hct RDW Lymph % (Auto) [place] % (Auto) Eos % (Auto) Lymph # [place] # Seg Neutrophils % Seg Neuts % (Manual) Lymphocytes % (Manual) Seg Neutrophils # Seg Neutrophils # Man Lymphocytes # (Manual) Monocytes # (Manual) D-Dimer Heparin Anti-Xa Level 1.03 H ABG pH POC ABG pCO2 POC ABG pO2 ABG pO2 ABG HCO3 ABG O2 Saturation ABG Base Excess ABG Hemoglobin ABG Oxyhemoglobin VBG pH Oxyhemoglobin Sodium Potassium Chloride Carbon Dioxide BUN Creatinine Glucose POC Glucose 208 H 185 H Lactic Acid Calcium AST Alkaline Phosphatase Lactate Dehydrogenase Total Creatine Kinase CK-MB (CK-2) C-Reactive Protein Total Protein Albumin Urine WBC (Auto) Urine Creatinine Urine Total Protein Coronavirus (PCR) 05/31/20 05/31/20 05/31/20 02:16 03:55 06:16 WBC RBC Hgb 9.2 L Hct 27.5 L RDW Lymph % (Auto) [place] % (Auto) Eos % (Auto) Lymph # [place] # Seg Neutrophils % Seg Neuts % (Manual) Lymphocytes % (Manual) Seg Neutrophils # Seg Neutrophils # Man Lymphocytes # (Manual) Monocytes # (Manual) D-Dimer Heparin Anti-Xa Level ABG pH POC ABG pCO2 POC ABG pO2 ABG pO2 94.7 H ABG HCO3 18.6 L ABG O2 Saturation ABG Base Excess -5.5 L ABG Hemoglobin 7.9 L ABG Oxyhemoglobin VBG pH Oxyhemoglobin Sodium Potassium Chloride Carbon Dioxide BUN Creatinine Glucose POC Glucose 160 H Lactic Acid Calcium AST Alkaline Phosphatase Lactate Dehydrogenase Total Creatine Kinase CK-MB (CK-2) C-Reactive Protein Total Protein Albumin Urine WBC (Auto) Urine Creatinine Urine Total Protein Coronavirus (PCR) 05/31/20 05/31/20 05/31/20 12:20 13:03 18:13 WBC RBC Hgb Hct RDW Lymph % (Auto) [place] % (Auto) Eos % (Auto) Lymph # [place] # Seg Neutrophils % Seg Neuts % (Manual) Lymphocytes % (Manual) Seg Neutrophils # Seg Neutrophils # Man Lymphocytes # (Manual) Monocytes # (Manual) D-Dimer Heparin Anti-Xa Level ABG pH POC ABG pCO2 POC ABG pO2 ABG pO2 ABG HCO3 ABG O2 Saturation ABG Base Excess ABG Hemoglobin ABG Oxyhemoglobin VBG pH Oxyhemoglobin Sodium Potassium Chloride Carbon Dioxide 18 L BUN 48 H Creatinine 1.6 H Glucose 115 H POC Glucose 128 H 159 H Lactic Acid Calcium 8.3 L AST Alkaline Phosphatase Lactate Dehydrogenase Total Creatine Kinase CK-MB (CK-2) C-Reactive Protein Total Protein 5.4 L Albumin 2.4 L Urine WBC (Auto) Urine Creatinine Urine Total Protein Coronavirus (PCR) 05/31/20 06/01/20 06/01/20 23:51 04:00 05:48 WBC RBC Hgb Hct RDW Lymph % (Auto) [place] % (Auto) Eos % (Auto) Lymph # [place] # Seg Neutrophils % Seg Neuts % (Manual) Lymphocytes % (Manual) Seg Neutrophils # Seg Neutrophils # Man Lymphocytes # (Manual) Monocytes # (Manual) D-Dimer Heparin Anti-Xa Level ABG pH POC ABG pCO2 POC ABG pO2 ABG pO2 109.8 H ABG HCO3 18.8 L ABG O2 Saturation ABG Base Excess -5.9 L ABG Hemoglobin 7.8 L ABG Oxyhemoglobin VBG pH Oxyhemoglobin Sodium Potassium Chloride Carbon Dioxide BUN Creatinine Glucose POC Glucose 171 H 133 H Lactic Acid Calcium AST Alkaline Phosphatase Lactate Dehydrogenase Total Creatine Kinase CK-MB (CK-2) C-Reactive Protein Total Protein Albumin Urine WBC (Auto) Urine Creatinine Urine Total Protein Coronavirus (PCR) 06/01/20 06/01/20 06/02/20 12:28 17:29 00:08 WBC RBC Hgb Hct RDW Lymph % (Auto) [place] % (Auto) Eos % (Auto) Lymph # [place] # Seg Neutrophils % Seg Neuts % (Manual) Lymphocytes % (Manual) Seg Neutrophils # Seg Neutrophils # Man Lymphocytes # (Manual) Monocytes # (Manual) D-Dimer Heparin Anti-Xa Level ABG pH POC ABG pCO2 POC ABG pO2 ABG pO2 ABG HCO3 ABG O2 Saturation ABG Base Excess ABG Hemoglobin ABG Oxyhemoglobin VBG pH Oxyhemoglobin Sodium Potassium Chloride Carbon Dioxide BUN Creatinine Glucose POC Glucose 199 H 209 H 162 H Lactic Acid Calcium AST Alkaline Phosphatase Lactate Dehydrogenase Total Creatine Kinase CK-MB (CK-2) C-Reactive Protein Total Protein Albumin Urine WBC (Auto) Urine Creatinine Urine Total Protein Coronavirus (PCR) 06/02/20 06/02/20 06/02/20 04:20 04:20 04:44 WBC RBC Hgb 10.0 L Hct RDW Lymph % (Auto) [place] % (Auto) Eos % (Auto) Lymph # [place] # Seg Neutrophils % Seg Neuts % (Manual) Lymphocytes % (Manual) Seg Neutrophils # Seg Neutrophils # Man Lymphocytes # (Manual) Monocytes # (Manual) D-Dimer Heparin Anti-Xa Level 0.10 L ABG pH POC ABG pCO2 POC ABG pO2 ABG pO2 150.6 H ABG HCO3 ABG O2 Saturation ABG Base Excess -4.1 L ABG Hemoglobin 11.8 L ABG Oxyhemoglobin VBG pH Oxyhemoglobin Sodium Potassium Chloride Carbon Dioxide BUN Creatinine Glucose POC Glucose Lactic Acid Calcium AST Alkaline Phosphatase Lactate Dehydrogenase Total Creatine Kinase CK-MB (CK-2) C-Reactive Protein Total Protein Albumin Urine WBC (Auto) Urine Creatinine Urine Total Protein Coronavirus (PCR) 06/02/20 06/02/20 06/02/20 05:53 12:04 13:49 WBC RBC Hgb Hct RDW Lymph % (Auto) [place] % (Auto) Eos % (Auto) Lymph # [place] # Seg Neutrophils % Seg Neuts % (Manual) Lymphocytes % (Manual) Seg Neutrophils # Seg Neutrophils # Man Lymphocytes # (Manual) Monocytes # (Manual) D-Dimer Heparin Anti-Xa Level 0.28 L ABG pH POC ABG pCO2 POC ABG pO2 ABG pO2 ABG HCO3 ABG O2 Saturation ABG Base Excess ABG Hemoglobin ABG Oxyhemoglobin VBG pH Oxyhemoglobin Sodium Potassium Chloride Carbon Dioxide BUN Creatinine Glucose POC Glucose 149 H 220 H Lactic Acid Calcium AST Alkaline Phosphatase Lactate Dehydrogenase Total Creatine Kinase CK-MB (CK-2) C-Reactive Protein Total Protein Albumin Urine WBC (Auto) Urine Creatinine Urine Total Protein Coronavirus (PCR) 06/02/20 06/02/20 06/03/20 13:49 18:31 00:42 WBC RBC Hgb Hct RDW Lymph % (Auto) [place] % (Auto) Eos % (Auto) Lymph # [place] # Seg Neutrophils % Seg Neuts % (Manual) Lymphocytes % (Manual) Seg Neutrophils # Seg Neutrophils # Man Lymphocytes # (Manual) Monocytes # (Manual) D-Dimer 769.68 H Heparin Anti-Xa Level ABG pH POC ABG pCO2 POC ABG pO2 ABG pO2 ABG HCO3 ABG O2 Saturation ABG Base Excess ABG Hemoglobin ABG Oxyhemoglobin VBG pH Oxyhemoglobin Sodium Potassium Chloride Carbon Dioxide BUN Creatinine Glucose POC Glucose 225 H 212 H Lactic Acid Calcium AST Alkaline Phosphatase Lactate Dehydrogenase Total Creatine Kinase CK-MB (CK-2) C-Reactive Protein Total Protein Albumin Urine WBC (Auto) Urine Creatinine Urine Total Protein Coronavirus (PCR) 06/03/20 06/03/20 06/03/20 05:16 05:16 05:25 WBC 11.4 H RBC Hgb Hct RDW 16.4 H Lymph % (Auto) [place] % (Auto) Eos % (Auto) Lymph # [place] # Seg Neutrophils % Seg Neuts % (Manual) Lymphocytes % (Manual) Seg Neutrophils # Seg Neutrophils # Man Lymphocytes # (Manual) Monocytes # (Manual) D-Dimer Heparin Anti-Xa Level ABG pH POC ABG pCO2 POC ABG pO2 ABG pO2 160.9 H ABG HCO3 19.4 L ABG O2 Saturation ABG Base Excess -4.9 L ABG Hemoglobin 7.0 L ABG Oxyhemoglobin VBG pH Oxyhemoglobin Sodium Potassium Chloride Carbon Dioxide 18 L BUN 65 H Creatinine 2.0 H Glucose 175 H POC Glucose Lactic Acid Calcium 8.0 L AST Alkaline Phosphatase Lactate Dehydrogenase Total Creatine Kinase CK-MB (CK-2) C-Reactive Protein Total Protein 5.5 L Albumin 2.2 L Urine WBC (Auto) Urine Creatinine Urine Total Protein Coronavirus (PCR) 06/03/20 06/03/20 06/03/20 06:07 11:58 18:24 WBC RBC Hgb Hct RDW Lymph % (Auto) [place] % (Auto) Eos % (Auto) Lymph # [place] # Seg Neutrophils % Seg Neuts % (Manual) Lymphocytes % (Manual) Seg Neutrophils # Seg Neutrophils # Man Lymphocytes # (Manual) Monocytes # (Manual) D-Dimer Heparin Anti-Xa Level ABG pH POC ABG pCO2 POC ABG pO2 ABG pO2 ABG HCO3 ABG O2 Saturation ABG Base Excess ABG Hemoglobin ABG Oxyhemoglobin VBG pH Oxyhemoglobin Sodium Potassium Chloride Carbon Dioxide BUN Creatinine Glucose POC Glucose 177 H 163 H 211 H Lactic Acid Calcium AST Alkaline Phosphatase Lactate Dehydrogenase Total Creatine Kinase CK-MB (CK-2) C-Reactive Protein Total Protein Albumin Urine WBC (Auto) Urine Creatinine Urine Total Protein Coronavirus (PCR) 06/03/20 06/03/20 06/04/20 21:50 Unknown 00:26 WBC RBC Hgb Hct RDW Lymph % (Auto) [place] % (Auto) Eos % (Auto) Lymph # [place] # Seg Neutrophils % Seg Neuts % (Manual) Lymphocytes % (Manual) Seg Neutrophils # Seg Neutrophils # Man Lymphocytes # (Manual) Monocytes # (Manual) D-Dimer Heparin Anti-Xa Level ABG pH POC ABG pCO2 POC ABG pO2 ABG pO2 ABG HCO3 ABG O2 Saturation ABG Base Excess ABG Hemoglobin ABG Oxyhemoglobin VBG pH Oxyhemoglobin Sodium 135 L Potassium Chloride Carbon Dioxide 18 L BUN Creatinine Glucose POC Glucose 241 H Lactic Acid Calcium AST Alkaline Phosphatase Lactate Dehydrogenase Total Creatine Kinase CK-MB (CK-2) C-Reactive Protein Total Protein Albumin Urine WBC (Auto) 11.0 H Urine Creatinine Urine Total Protein Coronavirus (PCR) 06/04/20 06/04/20 06/04/20 03:35 04:19 04:19 WBC RBC 3.15 L Hgb 8.9 L Hct 26.8 L D RDW 15.9 H Lymph % (Auto) 6.0 L [place] % (Auto) Eos % (Auto) Lymph # 0.6 L [place] # Seg Neutrophils % 86.6 H Seg Neuts % (Manual) Lymphocytes % (Manual) Seg Neutrophils # 9.1 H Seg Neutrophils # Man Lymphocytes # (Manual) Monocytes # (Manual) D-Dimer Heparin Anti-Xa Level ABG pH 7.331 L POC ABG pCO2 POC ABG pO2 ABG pO2 ABG HCO3 ABG O2 Saturation ABG Base Excess -4.7 L ABG Hemoglobin 11.0 L ABG Oxyhemoglobin VBG pH Oxyhemoglobin 93.9 L Sodium 136 L Potassium Chloride Carbon Dioxide 20 L BUN 73 H Creatinine 2.0 H Glucose 192 H POC Glucose Lactic Acid Calcium 8.0 L AST Alkaline Phosphatase Lactate Dehydrogenase 271 H Total Creatine Kinase CK-MB (CK-2) C-Reactive Protein 2.20 H Total Protein 5.0 L Albumin 2.0 L Urine WBC (Auto) Urine Creatinine Urine Total Protein Coronavirus (PCR) 06/04/20 06/04/20 06/04/20 04:19 05:51 11:48 WBC RBC Hgb Hct RDW Lymph % (Auto) [place] % (Auto) Eos % (Auto) Lymph # [place] # Seg Neutrophils % Seg Neuts % (Manual) Lymphocytes % (Manual) Seg Neutrophils # Seg Neutrophils # Man Lymphocytes # (Manual) Monocytes # (Manual) D-Dimer 414.52 H Heparin Anti-Xa Level ABG pH POC ABG pCO2 POC ABG pO2 ABG pO2 ABG HCO3 ABG O2 Saturation ABG Base Excess ABG Hemoglobin ABG Oxyhemoglobin VBG pH Oxyhemoglobin Sodium Potassium Chloride Carbon Dioxide BUN Creatinine Glucose POC Glucose 179 H 213 H Lactic Acid Calcium AST Alkaline Phosphatase Lactate Dehydrogenase Total Creatine Kinase CK-MB (CK-2) C-Reactive Protein Total Protein Albumin Urine WBC (Auto) Urine Creatinine Urine Total Protein Coronavirus (PCR) 06/04/20 06/05/20 06/05/20 18:25 00:16 05:00 WBC RBC Hgb Hct RDW Lymph % (Auto) [place] % (Auto) Eos % (Auto) Lymph # [place] # Seg Neutrophils % Seg Neuts % (Manual) Lymphocytes % (Manual) Seg Neutrophils # Seg Neutrophils # Man Lymphocytes # (Manual) Monocytes # (Manual) D-Dimer Heparin Anti-Xa Level ABG pH 7.286 L POC ABG pCO2 POC ABG pO2 ABG pO2 96.2 H ABG HCO3 ABG O2 Saturation ABG Base Excess -6.3 L ABG Hemoglobin 8.8 L ABG Oxyhemoglobin VBG pH Oxyhemoglobin 94.8 L Sodium Potassium Chloride Carbon Dioxide BUN Creatinine Glucose POC Glucose 238 H 183 H Lactic Acid Calcium AST Alkaline Phosphatase Lactate Dehydrogenase Total Creatine Kinase CK-MB (CK-2) C-Reactive Protein Total Protein Albumin Urine WBC (Auto) Urine Creatinine Urine Total Protein Coronavirus (PCR) 06/05/20 06/05/20 06/05/20 05:39 07:25 07:25 WBC RBC 2.97 L Hgb 8.7 L Hct 25.7 L RDW 16.0 H Lymph % (Auto) 8.8 L [place] % (Auto) 13.3 H Eos % (Auto) Lymph # 0.8 L [place] # 1.3 H Seg Neutrophils % 77.3 H Seg Neuts % (Manual) Lymphocytes % (Manual) Seg Neutrophils # Seg Neutrophils # Man Lymphocytes # (Manual) Monocytes # (Manual) D-Dimer Heparin Anti-Xa Level ABG pH POC ABG pCO2 POC ABG pO2 ABG pO2 ABG HCO3 ABG O2 Saturation ABG Base Excess ABG Hemoglobin ABG Oxyhemoglobin VBG pH Oxyhemoglobin Sodium 133 L Potassium Chloride Carbon Dioxide 17 L BUN 89 H Creatinine 2.8 H Glucose 176 H POC Glucose 149 H Lactic Acid Calcium 7.7 L AST Alkaline Phosphatase Lactate Dehydrogenase Total Creatine Kinase CK-MB (CK-2) C-Reactive Protein Total Protein 4.2 L Albumin 1.9 L Urine WBC (Auto) Urine Creatinine Urine Total Protein Coronavirus (PCR) 06/05/20 06/05/20 06/05/20 07:25 12:05 15:41 WBC RBC Hgb Hct RDW Lymph % (Auto) [place] % (Auto) Eos % (Auto) Lymph # [place] # Seg Neutrophils % Seg Neuts % (Manual) Lymphocytes % (Manual) Seg Neutrophils # Seg Neutrophils # Man Lymphocytes # (Manual) Monocytes # (Manual) D-Dimer Heparin Anti-Xa Level 0.76 H 0.81 H ABG pH POC ABG pCO2 POC ABG pO2 ABG pO2 ABG HCO3 ABG O2 Saturation ABG Base Excess ABG Hemoglobin ABG Oxyhemoglobin VBG pH Oxyhemoglobin Sodium Potassium Chloride Carbon Dioxide BUN Creatinine Glucose POC Glucose 198 H Lactic Acid Calcium AST Alkaline Phosphatase Lactate Dehydrogenase Total Creatine Kinase CK-MB (CK-2) C-Reactive Protein Total Protein Albumin Urine WBC (Auto) Urine Creatinine Urine Total Protein Coronavirus (PCR) 06/05/20 06/05/20 06/06/20 18:08 23:25 04:00 WBC RBC Hgb Hct RDW Lymph % (Auto) [place] % (Auto) Eos % (Auto) Lymph # [place] # Seg Neutrophils % Seg Neuts % (Manual) Lymphocytes % (Manual) Seg Neutrophils # Seg Neutrophils # Man Lymphocytes # (Manual) Monocytes # (Manual) D-Dimer Heparin Anti-Xa Level ABG pH POC ABG pCO2 POC ABG pO2 ABG pO2 ABG HCO3 ABG O2 Saturation ABG Base Excess ABG Hemoglobin ABG Oxyhemoglobin VBG pH Oxyhemoglobin Sodium Potassium Chloride Carbon Dioxide BUN Creatinine Glucose POC Glucose 223 H 169 H Lactic Acid Calcium AST Alkaline Phosphatase Lactate Dehydrogenase Total Creatine Kinase CK-MB (CK-2) C-Reactive Protein Total Protein Albumin Urine WBC (Auto) 15.0 H Urine Creatinine Urine Total Protein Coronavirus (PCR) 06/06/20 06/06/20 06/06/20 04:00 05:33 05:38 WBC RBC 2.97 L Hgb 8.7 L Hct 26.8 L RDW 16.8 H Lymph % (Auto) [place] % (Auto) Eos % (Auto) Lymph # [place] # Seg Neutrophils % Seg Neuts % (Manual) Lymphocytes % (Manual) Seg Neutrophils # Seg Neutrophils # Man Lymphocytes # (Manual) Monocytes # (Manual) D-Dimer Heparin Anti-Xa Level ABG pH POC ABG pCO2 POC ABG pO2 ABG pO2 ABG HCO3 ABG O2 Saturation ABG Base Excess ABG Hemoglobin ABG Oxyhemoglobin VBG pH Oxyhemoglobin Sodium Potassium Chloride Carbon Dioxide BUN Creatinine Glucose POC Glucose 186 H Lactic Acid Calcium AST Alkaline Phosphatase Lactate Dehydrogenase Total Creatine Kinase CK-MB (CK-2) C-Reactive Protein Total Protein Albumin Urine WBC (Auto) Urine Creatinine 82.2 H Urine Total Protein 196 H Coronavirus (PCR) 06/06/20 06/06/20 06/06/20 05:38 12:25 17:03 WBC RBC Hgb Hct RDW Lymph % (Auto) [place] % (Auto) Eos % (Auto) Lymph # [place] # Seg Neutrophils % Seg Neuts % (Manual) Lymphocytes % (Manual) Seg Neutrophils # Seg Neutrophils # Man Lymphocytes # (Manual) Monocytes # (Manual) D-Dimer Heparin Anti-Xa Level ABG pH POC ABG pCO2 POC ABG pO2 ABG pO2 ABG HCO3 ABG O2 Saturation ABG Base Excess ABG Hemoglobin ABG Oxyhemoglobin VBG pH Oxyhemoglobin Sodium 134 L Potassium 5.2 H Chloride Carbon Dioxide 18 L BUN 97 H Creatinine 2.5 H Glucose 193 H POC Glucose 239 H 252 H Lactic Acid Calcium 7.5 L AST Alkaline Phosphatase Lactate Dehydrogenase Total Creatine Kinase CK-MB (CK-2) C-Reactive Protein Total Protein 4.1 L Albumin 1.9 L Urine WBC (Auto) Urine Creatinine Urine Total Protein Coronavirus (PCR) 06/07/20 06/07/20 06/07/20 00:16 01:49 04:00 WBC RBC 2.91 L Hgb 8.4 L Hct 25.0 L RDW 16.1 H Lymph % (Auto) 5.7 L [place] % (Auto) 10.5 H Eos % (Auto) Lymph # 0.6 L [place] # 1.1 H Seg Neutrophils % 83.6 H Seg Neuts % (Manual) Lymphocytes % (Manual) Seg Neutrophils # 9.1 H Seg Neutrophils # Man Lymphocytes # (Manual) Monocytes # (Manual) D-Dimer Heparin Anti-Xa Level 0.26 L ABG pH POC ABG pCO2 POC ABG pO2 ABG pO2 ABG HCO3 ABG O2 Saturation ABG Base Excess ABG Hemoglobin ABG Oxyhemoglobin VBG pH Oxyhemoglobin Sodium Potassium Chloride Carbon Dioxide BUN Creatinine Glucose POC Glucose 173 H Lactic Acid Calcium AST Alkaline Phosphatase Lactate Dehydrogenase Total Creatine Kinase CK-MB (CK-2) C-Reactive Protein Total Protein Albumin Urine WBC (Auto) Urine Creatinine Urine Total Protein Coronavirus (PCR) 06/07/20 06/07/20 06/07/20 04:00 04:54 05:51 WBC RBC Hgb Hct RDW Lymph % (Auto) [place] % (Auto) Eos % (Auto) Lymph # [place] # Seg Neutrophils % Seg Neuts % (Manual) Lymphocytes % (Manual) Seg Neutrophils # Seg Neutrophils # Man Lymphocytes # (Manual) Monocytes # (Manual) D-Dimer Heparin Anti-Xa Level ABG pH 7.317 L POC ABG pCO2 POC ABG pO2 ABG pO2 71.4 L ABG HCO3 ABG O2 Saturation 94.3 L ABG Base Excess -4.8 L ABG Hemoglobin 7.1 L ABG Oxyhemoglobin VBG pH Oxyhemoglobin 92.2 L Sodium 133 L Potassium Chloride Carbon Dioxide 18 L BUN 100 H Creatinine 2.5 H Glucose 158 H POC Glucose 168 H Lactic Acid Calcium 7.6 L AST Alkaline Phosphatase Lactate Dehydrogenase Total Creatine Kinase CK-MB (CK-2) C-Reactive Protein Total Protein 4.7 L Albumin 2.0 L Urine WBC (Auto) Urine Creatinine Urine Total Protein Coronavirus (PCR) 06/07/20 06/07/20 06/07/20 12:03 17:17 20:10 WBC RBC Hgb Hct RDW Lymph % (Auto) [place] % (Auto) Eos % (Auto) Lymph # [place] # Seg Neutrophils % Seg Neuts % (Manual) Lymphocytes % (Manual) Seg Neutrophils # Seg Neutrophils # Man Lymphocytes # (Manual) Monocytes # (Manual) D-Dimer Heparin Anti-Xa Level 0.17 L ABG pH POC ABG pCO2 POC ABG pO2 ABG pO2 ABG HCO3 ABG O2 Saturation ABG Base Excess ABG Hemoglobin ABG Oxyhemoglobin VBG pH Oxyhemoglobin Sodium Potassium Chloride Carbon Dioxide BUN Creatinine Glucose POC Glucose 276 H 281 H Lactic Acid Calcium AST Alkaline Phosphatase Lactate Dehydrogenase Total Creatine Kinase CK-MB (CK-2) C-Reactive Protein Total Protein Albumin Urine WBC (Auto) Urine Creatinine Urine Total Protein Coronavirus (PCR) 06/08/20 06/08/20 06/08/20 00:02 04:47 04:47 WBC 16.4 H RBC 3.07 L Hgb 8.6 L Hct 26.5 L RDW 16.3 H Lymph % (Auto) [place] % (Auto) Eos % (Auto) Lymph # [place] # Seg Neutrophils % Seg Neuts % (Manual) 90.0 H Lymphocytes % (Manual) 3.0 L Seg Neutrophils # Seg Neutrophils # Man 14.8 H Lymphocytes # (Manual) 0.5 L Monocytes # (Manual) 1.1 H D-Dimer Heparin Anti-Xa Level ABG pH POC ABG pCO2 POC ABG pO2 ABG pO2 ABG HCO3 ABG O2 Saturation ABG Base Excess ABG Hemoglobin ABG Oxyhemoglobin VBG pH Oxyhemoglobin Sodium 129 L Potassium Chloride 95.6 L Carbon Dioxide 17 L BUN 106 H Creatinine 2.5 H Glucose 213 H POC Glucose 242 H Lactic Acid Calcium 7.6 L AST Alkaline Phosphatase Lactate Dehydrogenase Total Creatine Kinase CK-MB (CK-2) C-Reactive Protein Total Protein 5.0 L Albumin 2.1 L Urine WBC (Auto) Urine Creatinine Urine Total Protein Coronavirus (PCR) 06/08/20 06/08/20 06/08/20 05:40 11:55 17:54 WBC RBC Hgb Hct RDW Lymph % (Auto) [place] % (Auto) Eos % (Auto) Lymph # [place] # Seg Neutrophils % Seg Neuts % (Manual) Lymphocytes % (Manual) Seg Neutrophils # Seg Neutrophils # Man Lymphocytes # (Manual) Monocytes # (Manual) D-Dimer Heparin Anti-Xa Level ABG pH POC ABG pCO2 POC ABG pO2 ABG pO2 ABG HCO3 ABG O2 Saturation ABG Base Excess ABG Hemoglobin ABG Oxyhemoglobin VBG pH Oxyhemoglobin Sodium Potassium Chloride Carbon Dioxide BUN Creatinine Glucose POC Glucose 221 H 218 H 163 H Lactic Acid Calcium AST Alkaline Phosphatase Lactate Dehydrogenase Total Creatine Kinase CK-MB (CK-2) C-Reactive Protein Total Protein Albumin Urine WBC (Auto) Urine Creatinine Urine Total Protein Coronavirus (PCR) 06/08/20 06/09/20 06/09/20 22:01 00:09 05:16 WBC 19.0 H RBC 3.35 L Hgb 9.2 L Hct 28.5 L RDW 16.3 H Lymph % (Auto) [place] % (Auto) Eos % (Auto) Lymph # [place] # Seg Neutrophils % Seg Neuts % (Manual) 85.0 H Lymphocytes % (Manual) 7.0 L Seg Neutrophils # Seg Neutrophils # Man 16.2 H Lymphocytes # (Manual) Monocytes # (Manual) 1.3 H D-Dimer Heparin Anti-Xa Level ABG pH POC ABG pCO2 POC ABG pO2 ABG pO2 ABG HCO3 ABG O2 Saturation ABG Base Excess ABG Hemoglobin ABG Oxyhemoglobin VBG pH Oxyhemoglobin Sodium Potassium Chloride Carbon Dioxide BUN Creatinine Glucose POC Glucose 182 H 150 H Lactic Acid Calcium AST Alkaline Phosphatase Lactate Dehydrogenase Total Creatine Kinase CK-MB (CK-2) C-Reactive Protein Total Protein Albumin Urine WBC (Auto) Urine Creatinine Urine Total Protein Coronavirus (PCR) 06/09/20 06/09/20 06/09/20 05:16 05:24 11:29 WBC RBC Hgb Hct RDW Lymph % (Auto) [place] % (Auto) Eos % (Auto) Lymph # [place] # Seg Neutrophils % Seg Neuts % (Manual) Lymphocytes % (Manual) Seg Neutrophils # Seg Neutrophils # Man Lymphocytes # (Manual) Monocytes # (Manual) D-Dimer Heparin Anti-Xa Level ABG pH POC ABG pCO2 POC ABG pO2 ABG pO2 ABG HCO3 ABG O2 Saturation ABG Base Excess ABG Hemoglobin ABG Oxyhemoglobin VBG pH Oxyhemoglobin Sodium 133 L Potassium Chloride Carbon Dioxide 19 L BUN 109 H Creatinine 2.1 H Glucose 133 H POC Glucose 128 H 119 H Lactic Acid Calcium 7.7 L AST Alkaline Phosphatase < 5 L Lactate Dehydrogenase Total Creatine Kinase CK-MB (CK-2) C-Reactive Protein Total Protein 4.6 L Albumin < 0.2 L Urine WBC (Auto) Urine Creatinine Urine Total Protein Coronavirus (PCR) 06/09/20 06/10/20 06/10/20 17:32 00:00 05:49 WBC RBC Hgb Hct RDW Lymph % (Auto) [place] % (Auto) Eos % (Auto) Lymph # [place] # Seg Neutrophils % Seg Neuts % (Manual) Lymphocytes % (Manual) Seg Neutrophils # Seg Neutrophils # Man Lymphocytes # (Manual) Monocytes # (Manual) D-Dimer Heparin Anti-Xa Level 0.19 L ABG pH POC ABG pCO2 POC ABG pO2 ABG pO2 ABG HCO3 ABG O2 Saturation ABG Base Excess ABG Hemoglobin ABG Oxyhemoglobin VBG pH Oxyhemoglobin Sodium Potassium Chloride Carbon Dioxide BUN Creatinine Glucose POC Glucose 106 H 117 H Lactic Acid Calcium AST Alkaline Phosphatase Lactate Dehydrogenase Total Creatine Kinase CK-MB (CK-2) C-Reactive Protein Total Protein Albumin Urine WBC (Auto) Urine Creatinine Urine Total Protein Coronavirus (PCR) 06/10/20 06/10/20 06/10/20 05:54 07:40 11:40 WBC RBC Hgb Hct RDW Lymph % (Auto) [place] % (Auto) Eos % (Auto) Lymph # [place] # Seg Neutrophils % Seg Neuts % (Manual) Lymphocytes % (Manual) Seg Neutrophils # Seg Neutrophils # Man Lymphocytes # (Manual) Monocytes # (Manual) D-Dimer Heparin Anti-Xa Level ABG pH POC ABG pCO2 POC ABG pO2 ABG pO2 ABG HCO3 ABG O2 Saturation ABG Base Excess ABG Hemoglobin ABG Oxyhemoglobin VBG pH Oxyhemoglobin Sodium 146 H D Potassium Chloride Carbon Dioxide 20 L BUN 99 H Creatinine 1.9 H Glucose 121 H POC Glucose 127 H 138 H Lactic Acid Calcium 8.2 L AST Alkaline Phosphatase Lactate Dehydrogenase Total Creatine Kinase CK-MB (CK-2) C-Reactive Protein Total Protein Albumin Urine WBC (Auto) Urine Creatinine Urine Total Protein Coronavirus (PCR) 06/10/20 06/10/20 06/10/20 14:44 17:31 23:22 WBC RBC Hgb Hct RDW Lymph % (Auto) [place] % (Auto) Eos % (Auto) Lymph # [place] # Seg Neutrophils % Seg Neuts % (Manual) Lymphocytes % (Manual) Seg Neutrophils # Seg Neutrophils # Man Lymphocytes # (Manual) Monocytes # (Manual) D-Dimer Heparin Anti-Xa Level 0.17 L ABG pH POC ABG pCO2 POC ABG pO2 ABG pO2 ABG HCO3 ABG O2 Saturation ABG Base Excess ABG Hemoglobin ABG Oxyhemoglobin VBG pH Oxyhemoglobin Sodium Potassium Chloride Carbon Dioxide BUN Creatinine Glucose POC Glucose 128 H 114 H Lactic Acid Calcium AST Alkaline Phosphatase Lactate Dehydrogenase Total Creatine Kinase CK-MB (CK-2) C-Reactive Protein Total Protein Albumin Urine WBC (Auto) Urine Creatinine Urine Total Protein Coronavirus (PCR) 06/11/20 06/11/20 06/11/20 00:22 03:45 03:45 WBC 14.6 H RBC 2.77 L Hgb 7.9 L Hct 24.3 L RDW 16.8 H Lymph % (Auto) 6.6 L [place] % (Auto) 8.5 H Eos % (Auto) Lymph # 1.0 L [place] # 1.2 H Seg Neutrophils % 82.9 H Seg Neuts % (Manual) Lymphocytes % (Manual) Seg Neutrophils # 12.1 H Seg Neutrophils # Man Lymphocytes # (Manual) Monocytes # (Manual) D-Dimer Heparin Anti-Xa Level 0.24 L ABG pH POC ABG pCO2 POC ABG pO2 ABG pO2 ABG HCO3 ABG O2 Saturation ABG Base Excess ABG Hemoglobin ABG Oxyhemoglobin VBG pH Oxyhemoglobin Sodium Potassium Chloride Carbon Dioxide 20 L BUN 88 H Creatinine 1.5 H Glucose 111 H POC Glucose Lactic Acid Calcium 8.2 L AST Alkaline Phosphatase Lactate Dehydrogenase Total Creatine Kinase CK-MB (CK-2) C-Reactive Protein Total Protein Albumin Urine WBC (Auto) Urine Creatinine Urine Total Protein Coronavirus (PCR) 06/11/20 06/11/20 06/11/20 06:03 10:22 11:11 WBC RBC Hgb Hct RDW Lymph % (Auto) [place] % (Auto) Eos % (Auto) Lymph # [place] # Seg Neutrophils % Seg Neuts % (Manual) Lymphocytes % (Manual) Seg Neutrophils # Seg Neutrophils # Man Lymphocytes # (Manual) Monocytes # (Manual) D-Dimer Heparin Anti-Xa Level 0.26 L ABG pH POC ABG pCO2 POC ABG pO2 ABG pO2 ABG HCO3 ABG O2 Saturation ABG Base Excess ABG Hemoglobin 9.6 L ABG Oxyhemoglobin VBG pH Oxyhemoglobin Sodium Potassium Chloride Carbon Dioxide BUN Creatinine Glucose POC Glucose 114 H Lactic Acid Calcium AST Alkaline Phosphatase Lactate Dehydrogenase Total Creatine Kinase CK-MB (CK-2) C-Reactive Protein Total Protein Albumin Urine WBC (Auto) Urine Creatinine Urine Total Protein Coronavirus (PCR) 06/11/20 06/11/20 06/12/20 12:24 17:24 00:21 WBC RBC Hgb Hct RDW Lymph % (Auto) [place] % (Auto) Eos % (Auto) Lymph # [place] # Seg Neutrophils % Seg Neuts % (Manual) Lymphocytes % (Manual) Seg Neutrophils # Seg Neutrophils # Man Lymphocytes # (Manual) Monocytes # (Manual) D-Dimer Heparin Anti-Xa Level ABG pH POC ABG pCO2 POC ABG pO2 ABG pO2 ABG HCO3 ABG O2 Saturation ABG Base Excess ABG Hemoglobin ABG Oxyhemoglobin VBG pH Oxyhemoglobin Sodium Potassium Chloride Carbon Dioxide BUN Creatinine Glucose POC Glucose 119 H 126 H 117 H Lactic Acid Calcium AST Alkaline Phosphatase Lactate Dehydrogenase Total Creatine Kinase CK-MB (CK-2) C-Reactive Protein Total Protein Albumin Urine WBC (Auto) Urine Creatinine Urine Total Protein Coronavirus (PCR) 06/12/20 06/12/20 06/12/20 02:46 02:46 05:46 WBC 13.2 H RBC 2.83 L Hgb 8.3 L Hct 24.3 L RDW 16.6 H Lymph % (Auto) 6.2 L [place] % (Auto) 9.5 H Eos % (Auto) Lymph # 0.8 L [place] # 1.3 H Seg Neutrophils % 81.9 H Seg Neuts % (Manual) Lymphocytes % (Manual) Seg Neutrophils # 10.9 H Seg Neutrophils # Man Lymphocytes # (Manual) Monocytes # (Manual) D-Dimer Heparin Anti-Xa Level ABG pH POC ABG pCO2 POC ABG pO2 ABG pO2 ABG HCO3 ABG O2 Saturation ABG Base Excess ABG Hemoglobin ABG Oxyhemoglobin VBG pH Oxyhemoglobin Sodium Potassium 3.5 L Chloride Carbon Dioxide BUN 77 H Creatinine 1.3 H Glucose POC Glucose 132 H Lactic Acid Calcium 8.3 L AST Alkaline Phosphatase Lactate Dehydrogenase Total Creatine Kinase CK-MB (CK-2) C-Reactive Protein Total Protein Albumin Urine WBC (Auto) Urine Creatinine Urine Total Protein Coronavirus (PCR) 06/12/20 06/12/20 06/12/20 09:20 12:16 17:48 WBC RBC Hgb Hct RDW Lymph % (Auto) [place] % (Auto) Eos % (Auto) Lymph # [place] # Seg Neutrophils % Seg Neuts % (Manual) Lymphocytes % (Manual) Seg Neutrophils # Seg Neutrophils # Man Lymphocytes # (Manual) Monocytes # (Manual) D-Dimer Heparin Anti-Xa Level ABG pH POC ABG pCO2 POC ABG pO2 ABG pO2 91.1 H ABG HCO3 ABG O2 Saturation ABG Base Excess ABG Hemoglobin ABG Oxyhemoglobin VBG pH Oxyhemoglobin 94.8 L Sodium Potassium Chloride Carbon Dioxide BUN Creatinine Glucose POC Glucose 167 H 182 H Lactic Acid Calcium AST Alkaline Phosphatase Lactate Dehydrogenase Total Creatine Kinase CK-MB (CK-2) C-Reactive Protein Total Protein Albumin Urine WBC (Auto) Urine Creatinine Urine Total Protein Coronavirus (PCR) 06/13/20 06/13/20 06/13/20 00:08 05:37 09:09 WBC RBC Hgb Hct RDW Lymph % (Auto) [place] % (Auto) Eos % (Auto) Lymph # [place] # Seg Neutrophils % Seg Neuts % (Manual) Lymphocytes % (Manual) Seg Neutrophils # Seg Neutrophils # Man Lymphocytes # (Manual) Monocytes # (Manual) D-Dimer Heparin Anti-Xa Level 0.86 H ABG pH POC ABG pCO2 POC ABG pO2 ABG pO2 ABG HCO3 ABG O2 Saturation ABG Base Excess ABG Hemoglobin ABG Oxyhemoglobin VBG pH Oxyhemoglobin Sodium Potassium Chloride Carbon Dioxide BUN Creatinine Glucose POC Glucose 142 H 119 H Lactic Acid Calcium AST Alkaline Phosphatase Lactate Dehydrogenase Total Creatine Kinase CK-MB (CK-2) C-Reactive Protein Total Protein Albumin Urine WBC (Auto) Urine Creatinine Urine Total Protein Coronavirus (PCR) 06/13/20 06/13/20 06/13/20 12:28 17:55 21:17 WBC RBC Hgb Hct RDW Lymph % (Auto) [place] % (Auto) Eos % (Auto) Lymph # [place] # Seg Neutrophils % Seg Neuts % (Manual) Lymphocytes % (Manual) Seg Neutrophils # Seg Neutrophils # Man Lymphocytes # (Manual) Monocytes # (Manual) D-Dimer Heparin Anti-Xa Level ABG pH POC ABG pCO2 POC ABG pO2 ABG pO2 ABG HCO3 ABG O2 Saturation ABG Base Excess ABG Hemoglobin ABG Oxyhemoglobin VBG pH Oxyhemoglobin Sodium Potassium Chloride Carbon Dioxide BUN 61 H Creatinine Glucose 131 H POC Glucose 165 H 174 H Lactic Acid Calcium AST Alkaline Phosphatase Lactate Dehydrogenase Total Creatine Kinase CK-MB (CK-2) C-Reactive Protein Total Protein Albumin Urine WBC (Auto) Urine Creatinine Urine Total Protein Coronavirus (PCR) 06/13/20 06/13/20 06/14/20 21:17 23:50 05:34 WBC RBC Hgb Hct RDW Lymph % (Auto) [place] % (Auto) Eos % (Auto) Lymph # [place] # Seg Neutrophils % Seg Neuts % (Manual) Lymphocytes % (Manual) Seg Neutrophils # Seg Neutrophils # Man Lymphocytes # (Manual) Monocytes # (Manual) D-Dimer Heparin Anti-Xa Level 0.72 H ABG pH POC ABG pCO2 POC ABG pO2 ABG pO2 ABG HCO3 ABG O2 Saturation ABG Base Excess ABG Hemoglobin ABG Oxyhemoglobin VBG pH Oxyhemoglobin Sodium 146 H Potassium Chloride 107.6 H Carbon Dioxide BUN 61 H Creatinine 1.3 H Glucose 135 H POC Glucose 146 H Lactic Acid Calcium AST Alkaline Phosphatase Lactate Dehydrogenase Total Creatine Kinase CK-MB (CK-2) C-Reactive Protein Total Protein Albumin Urine WBC (Auto) Urine Creatinine Urine Total Protein Coronavirus (PCR) 06/14/20 06/14/20 06/14/20 06:11 09:28 11:30 WBC RBC Hgb Hct RDW Lymph % (Auto) [place] % (Auto) Eos % (Auto) Lymph # [place] # Seg Neutrophils % Seg Neuts % (Manual) Lymphocytes % (Manual) Seg Neutrophils # Seg Neutrophils # Man Lymphocytes # (Manual) Monocytes # (Manual) D-Dimer Heparin Anti-Xa Level 0.90 H ABG pH POC ABG pCO2 POC ABG pO2 ABG pO2 ABG HCO3 ABG O2 Saturation ABG Base Excess ABG Hemoglobin ABG Oxyhemoglobin VBG pH Oxyhemoglobin Sodium Potassium Chloride Carbon Dioxide BUN Creatinine Glucose POC Glucose 141 H 186 H Lactic Acid Calcium AST Alkaline Phosphatase Lactate Dehydrogenase Total Creatine Kinase CK-MB (CK-2) C-Reactive Protein Total Protein Albumin Urine WBC (Auto) Urine Creatinine Urine Total Protein Coronavirus (PCR) 06/14/20 06/14/20 06/14/20 16:07 18:16 23:51 WBC RBC Hgb Hct RDW Lymph % (Auto) [place] % (Auto) Eos % (Auto) Lymph # [place] # Seg Neutrophils % Seg Neuts % (Manual) Lymphocytes % (Manual) Seg Neutrophils # Seg Neutrophils # Man Lymphocytes # (Manual) Monocytes # (Manual) D-Dimer Heparin Anti-Xa Level 0.82 H ABG pH POC ABG pCO2 POC ABG pO2 ABG pO2 ABG HCO3 ABG O2 Saturation ABG Base Excess ABG Hemoglobin ABG Oxyhemoglobin VBG pH Oxyhemoglobin Sodium Potassium Chloride Carbon Dioxide BUN Creatinine Glucose POC Glucose 106 H 154 H Lactic Acid Calcium AST Alkaline Phosphatase Lactate Dehydrogenase Total Creatine Kinase CK-MB (CK-2) C-Reactive Protein Total Protein Albumin Urine WBC (Auto) Urine Creatinine Urine Total Protein Coronavirus (PCR) 06/15/20 06/15/20 06/15/20 04:24 04:24 05:59 WBC RBC 2.75 L Hgb 7.9 L Hct 24.0 L RDW 16.4 H Lymph % (Auto) 12.9 L [place] % (Auto) 8.7 H Eos % (Auto) 4.6 H Lymph # 1.1 L [place] # Seg Neutrophils % 73.2 H Seg Neuts % (Manual) Lymphocytes % (Manual) Seg Neutrophils # Seg Neutrophils # Man Lymphocytes # (Manual) Monocytes # (Manual) D-Dimer Heparin Anti-Xa Level ABG pH POC ABG pCO2 POC ABG pO2 ABG pO2 ABG HCO3 ABG O2 Saturation ABG Base Excess ABG Hemoglobin ABG Oxyhemoglobin VBG pH Oxyhemoglobin Sodium Potassium 3.4 L Chloride Carbon Dioxide BUN 55 H Creatinine 1.3 H Glucose 142 H POC Glucose 131 H Lactic Acid Calcium AST Alkaline Phosphatase Lactate Dehydrogenase Total Creatine Kinase CK-MB (CK-2) C-Reactive Protein Total Protein Albumin Urine WBC (Auto) Urine Creatinine Urine Total Protein Coronavirus (PCR) 06/15/20 06/15/20 06/16/20 12:33 17:07 00:22 WBC RBC Hgb Hct RDW Lymph % (Auto) [place] % (Auto) Eos % (Auto) Lymph # [place] # Seg Neutrophils % Seg Neuts % (Manual) Lymphocytes % (Manual) Seg Neutrophils # Seg Neutrophils # Man Lymphocytes # (Manual) Monocytes # (Manual) D-Dimer Heparin Anti-Xa Level 0.21 L ABG pH POC ABG pCO2 POC ABG pO2 ABG pO2 ABG HCO3 ABG O2 Saturation ABG Base Excess ABG Hemoglobin ABG Oxyhemoglobin VBG pH Oxyhemoglobin Sodium Potassium Chloride Carbon Dioxide BUN Creatinine Glucose POC Glucose 180 H 185 H Lactic Acid Calcium AST Alkaline Phosphatase Lactate Dehydrogenase Total Creatine Kinase CK-MB (CK-2) C-Reactive Protein Total Protein Albumin Urine WBC (Auto) Urine Creatinine Urine Total Protein Coronavirus (PCR) 06/16/20 06/16/20 06/16/20 01:45 08:06 09:15 WBC RBC Hgb Hct RDW Lymph % (Auto) [place] % (Auto) Eos % (Auto) Lymph # [place] # Seg Neutrophils % Seg Neuts % (Manual) Lymphocytes % (Manual) Seg Neutrophils # Seg Neutrophils # Man Lymphocytes # (Manual) Monocytes # (Manual) D-Dimer Heparin Anti-Xa Level ABG pH POC ABG pCO2 POC ABG pO2 ABG pO2 ABG HCO3 ABG O2 Saturation ABG Base Excess ABG Hemoglobin ABG Oxyhemoglobin VBG pH Oxyhemoglobin Sodium Potassium Chloride Carbon Dioxide BUN 49 H Creatinine Glucose 154 H POC Glucose 140 H 171 H Lactic Acid Calcium AST Alkaline Phosphatase Lactate Dehydrogenase Total Creatine Kinase CK-MB (CK-2) C-Reactive Protein Total Protein Albumin Urine WBC (Auto) Urine Creatinine Urine Total Protein Coronavirus (PCR) 06/16/20 06/16/20 06/16/20 10:46 12:33 17:54 WBC RBC Hgb Hct RDW Lymph % (Auto) [place] % (Auto) Eos % (Auto) Lymph # [place] # Seg Neutrophils % Seg Neuts % (Manual) Lymphocytes % (Manual) Seg Neutrophils # Seg Neutrophils # Man Lymphocytes # (Manual) Monocytes # (Manual) D-Dimer Heparin Anti-Xa Level 0.12 L ABG pH POC ABG pCO2 POC ABG pO2 ABG pO2 ABG HCO3 ABG O2 Saturation ABG Base Excess ABG Hemoglobin ABG Oxyhemoglobin VBG pH Oxyhemoglobin Sodium Potassium Chloride Carbon Dioxide BUN Creatinine Glucose POC Glucose 166 H 151 H Lactic Acid Calcium AST Alkaline Phosphatase Lactate Dehydrogenase Total Creatine Kinase CK-MB (CK-2) C-Reactive Protein Total Protein Albumin Urine WBC (Auto) Urine Creatinine Urine Total Protein Coronavirus (PCR) 06/16/20 06/17/20 06/17/20 18:47 00:00 02:19 WBC RBC Hgb Hct RDW Lymph % (Auto) [place] % (Auto) Eos % (Auto) Lymph # [place] # Seg Neutrophils % Seg Neuts % (Manual) Lymphocytes % (Manual) Seg Neutrophils # Seg Neutrophils # Man Lymphocytes # (Manual) Monocytes # (Manual) D-Dimer Heparin Anti-Xa Level 0.73 H 0.77 H ABG pH POC ABG pCO2 POC ABG pO2 ABG pO2 ABG HCO3 ABG O2 Saturation ABG Base Excess ABG Hemoglobin ABG Oxyhemoglobin VBG pH Oxyhemoglobin Sodium Potassium Chloride Carbon Dioxide BUN Creatinine Glucose POC Glucose 139 H Lactic Acid Calcium AST Alkaline Phosphatase Lactate Dehydrogenase Total Creatine Kinase CK-MB (CK-2) C-Reactive Protein Total Protein Albumin Urine WBC (Auto) Urine Creatinine Urine Total Protein Coronavirus (PCR) 06/17/20 06/17/20 06/17/20 06:07 11:42 16:43 WBC RBC Hgb Hct RDW Lymph % (Auto) [place] % (Auto) Eos % (Auto) Lymph # [place] # Seg Neutrophils % Seg Neuts % (Manual) Lymphocytes % (Manual) Seg Neutrophils # Seg Neutrophils # Man Lymphocytes # (Manual) Monocytes # (Manual) D-Dimer Heparin Anti-Xa Level 0.73 H ABG pH POC ABG pCO2 POC ABG pO2 ABG pO2 ABG HCO3 ABG O2 Saturation ABG Base Excess ABG Hemoglobin ABG Oxyhemoglobin VBG pH Oxyhemoglobin Sodium Potassium Chloride Carbon Dioxide BUN Creatinine Glucose POC Glucose 169 H 169 H Lactic Acid Calcium AST Alkaline Phosphatase Lactate Dehydrogenase Total Creatine Kinase CK-MB (CK-2) C-Reactive Protein Total Protein Albumin Urine WBC (Auto) Urine Creatinine Urine Total Protein Coronavirus (PCR) 06/17/20 06/17/20 06/17/20 18:18 23:08 23:16 WBC RBC Hgb Hct RDW Lymph % (Auto) [place] % (Auto) Eos % (Auto) Lymph # [place] # Seg Neutrophils % Seg Neuts % (Manual) Lymphocytes % (Manual) Seg Neutrophils # Seg Neutrophils # Man Lymphocytes # (Manual) Monocytes # (Manual) D-Dimer Heparin Anti-Xa Level 0.71 H ABG pH POC ABG pCO2 POC ABG pO2 ABG pO2 ABG HCO3 ABG O2 Saturation ABG Base Excess ABG Hemoglobin ABG Oxyhemoglobin VBG pH Oxyhemoglobin Sodium Potassium Chloride Carbon Dioxide BUN Creatinine Glucose POC Glucose 159 H 134 H Lactic Acid Calcium AST Alkaline Phosphatase Lactate Dehydrogenase Total Creatine Kinase CK-MB (CK-2) C-Reactive Protein Total Protein Albumin Urine WBC (Auto) Urine Creatinine Urine Total Protein Coronavirus (PCR) 06/18/20 06/18/20 06/18/20 04:42 05:52 11:50 WBC RBC Hgb Hct RDW Lymph % (Auto) [place] % (Auto) Eos % (Auto) Lymph # [place] # Seg Neutrophils % Seg Neuts % (Manual) Lymphocytes % (Manual) Seg Neutrophils # Seg Neutrophils # Man Lymphocytes # (Manual) Monocytes # (Manual) D-Dimer Heparin Anti-Xa Level ABG pH POC ABG pCO2 POC ABG pO2 ABG pO2 ABG HCO3 ABG O2 Saturation ABG Base Excess ABG Hemoglobin ABG Oxyhemoglobin VBG pH Oxyhemoglobin Sodium Potassium Chloride Carbon Dioxide BUN 44 H Creatinine Glucose 115 H POC Glucose 171 H 167 H Lactic Acid Calcium AST Alkaline Phosphatase Lactate Dehydrogenase Total Creatine Kinase CK-MB (CK-2) C-Reactive Protein Total Protein Albumin Urine WBC (Auto) Urine Creatinine Urine Total Protein Coronavirus (PCR) 06/18/20 06/19/20 06/19/20 23:46 05:48 07:52 WBC RBC Hgb Hct RDW Lymph % (Auto) [place] % (Auto) Eos % (Auto) Lymph # [place] # Seg Neutrophils % Seg Neuts % (Manual) Lymphocytes % (Manual) Seg Neutrophils # Seg Neutrophils # Man Lymphocytes # (Manual) Monocytes # (Manual) D-Dimer Heparin Anti-Xa Level ABG pH POC ABG pCO2 POC ABG pO2 ABG pO2 ABG HCO3 ABG O2 Saturation ABG Base Excess ABG Hemoglobin ABG Oxyhemoglobin VBG pH Oxyhemoglobin Sodium Potassium Chloride Carbon Dioxide BUN Creatinine Glucose POC Glucose 130 H 207 H 175 H Lactic Acid Calcium AST Alkaline Phosphatase Lactate Dehydrogenase Total Creatine Kinase CK-MB (CK-2) C-Reactive Protein Total Protein Albumin Urine WBC (Auto) Urine Creatinine Urine Total Protein Coronavirus (PCR) 06/19/20 06/19/20 06/20/20 11:42 22:54 05:17 WBC RBC Hgb Hct RDW Lymph % (Auto) [place] % (Auto) Eos % (Auto) Lymph # [place] # Seg Neutrophils % Seg Neuts % (Manual) Lymphocytes % (Manual) Seg Neutrophils # Seg Neutrophils # Man Lymphocytes # (Manual) Monocytes # (Manual) D-Dimer Heparin Anti-Xa Level ABG pH POC ABG pCO2 POC ABG pO2 ABG pO2 ABG HCO3 ABG O2 Saturation ABG Base Excess ABG Hemoglobin ABG Oxyhemoglobin VBG pH Oxyhemoglobin Sodium Potassium Chloride Carbon Dioxide BUN Creatinine Glucose POC Glucose 166 H 135 H 218 H Lactic Acid Calcium AST Alkaline Phosphatase Lactate Dehydrogenase Total Creatine Kinase CK-MB (CK-2) C-Reactive Protein Total Protein Albumin Urine WBC (Auto) Urine Creatinine Urine Total Protein Coronavirus (PCR) 06/20/20 06/20/20 06/20/20 12:04 16:25 16:35 WBC RBC Hgb Hct RDW Lymph % (Auto) [place] % (Auto) Eos % (Auto) Lymph # [place] # Seg Neutrophils % Seg Neuts % (Manual) Lymphocytes % (Manual) Seg Neutrophils # Seg Neutrophils # Man Lymphocytes # (Manual) Monocytes # (Manual) D-Dimer Heparin Anti-Xa Level ABG pH POC ABG pCO2 POC ABG pO2 ABG pO2 59.6 L ABG HCO3 28.7 H ABG O2 Saturation 93.5 L ABG Base Excess 3.4 H ABG Hemoglobin 7.2 L ABG Oxyhemoglobin VBG pH Oxyhemoglobin 91.3 L Sodium Potassium Chloride Carbon Dioxide BUN Creatinine Glucose POC Glucose 194 H 137 H Lactic Acid Calcium AST Alkaline Phosphatase Lactate Dehydrogenase Total Creatine Kinase CK-MB (CK-2) C-Reactive Protein Total Protein Albumin Urine WBC (Auto) Urine Creatinine Urine Total Protein Coronavirus (PCR) 06/20/20 06/21/20 06/21/20 23:59 06:25 12:01 WBC RBC Hgb Hct RDW Lymph % (Auto) [place] % (Auto) Eos % (Auto) Lymph # [place] # Seg Neutrophils % Seg Neuts % (Manual) Lymphocytes % (Manual) Seg Neutrophils # Seg Neutrophils # Man Lymphocytes # (Manual) Monocytes # (Manual) D-Dimer Heparin Anti-Xa Level ABG pH POC ABG pCO2 POC ABG pO2 ABG pO2 ABG HCO3 ABG O2 Saturation ABG Base Excess ABG Hemoglobin ABG Oxyhemoglobin VBG pH Oxyhemoglobin Sodium Potassium Chloride Carbon Dioxide BUN Creatinine Glucose POC Glucose 156 H 177 H 195 H Lactic Acid Calcium AST Alkaline Phosphatase Lactate Dehydrogenase Total Creatine Kinase CK-MB (CK-2) C-Reactive Protein Total Protein Albumin Urine WBC (Auto) Urine Creatinine Urine Total Protein Coronavirus (PCR) 06/21/20 06/21/20 06/22/20 17:04 21:51 05:06 WBC RBC Hgb Hct RDW Lymph % (Auto) [place] % (Auto) Eos % (Auto) Lymph # [place] # Seg Neutrophils % Seg Neuts % (Manual) Lymphocytes % (Manual) Seg Neutrophils # Seg Neutrophils # Man Lymphocytes # (Manual) Monocytes # (Manual) D-Dimer Heparin Anti-Xa Level ABG pH POC ABG pCO2 POC ABG pO2 ABG pO2 ABG HCO3 ABG O2 Saturation ABG Base Excess ABG Hemoglobin ABG Oxyhemoglobin VBG pH Oxyhemoglobin Sodium Potassium Chloride Carbon Dioxide BUN Creatinine Glucose POC Glucose 156 H 154 H 167 H Lactic Acid Calcium AST Alkaline Phosphatase Lactate Dehydrogenase Total Creatine Kinase CK-MB (CK-2) C-Reactive Protein Total Protein Albumin Urine WBC (Auto) Urine Creatinine Urine Total Protein Coronavirus (PCR) 06/22/20 06/22/20 06/22/20 11:20 15:27 16:58 WBC RBC Hgb Hct RDW Lymph % (Auto) [place] % (Auto) Eos % (Auto) Lymph # [place] # Seg Neutrophils % Seg Neuts % (Manual) Lymphocytes % (Manual) Seg Neutrophils # Seg Neutrophils # Man Lymphocytes # (Manual) Monocytes # (Manual) D-Dimer Heparin Anti-Xa Level ABG pH 7.206 L POC ABG pCO2 79.9 H POC ABG pO2 ABG pO2 ABG HCO3 ABG O2 Saturation ABG Base Excess ABG Hemoglobin 8.3 L ABG Oxyhemoglobin VBG pH Oxyhemoglobin Sodium Potassium Chloride Carbon Dioxide BUN Creatinine Glucose POC Glucose 181 H 230 H Lactic Acid Calcium AST Alkaline Phosphatase Lactate Dehydrogenase Total Creatine Kinase CK-MB (CK-2) C-Reactive Protein Total Protein Albumin Urine WBC (Auto) Urine Creatinine Urine Total Protein Coronavirus (PCR) 06/22/20 06/23/20 06/23/20 22:26 05:49 05:49 WBC RBC 2.58 L Hgb 7.4 L Hct 23.2 L RDW 17.0 H Lymph % (Auto) [place] % (Auto) 11.2 H Eos % (Auto) Lymph # 1.0 L [place] # Seg Neutrophils % Seg Neuts % (Manual) Lymphocytes % (Manual) Seg Neutrophils # Seg Neutrophils # Man Lymphocytes # (Manual) Monocytes # (Manual) D-Dimer Heparin Anti-Xa Level ABG pH POC ABG pCO2 POC ABG pO2 ABG pO2 ABG HCO3 ABG O2 Saturation ABG Base Excess ABG Hemoglobin ABG Oxyhemoglobin VBG pH Oxyhemoglobin Sodium Potassium Chloride Carbon Dioxide BUN 68 H Creatinine 2.4 H Glucose 198 H POC Glucose 195 H Lactic Acid Calcium AST Alkaline Phosphatase Lactate Dehydrogenase Total Creatine Kinase CK-MB (CK-2) C-Reactive Protein Total Protein Albumin Urine WBC (Auto) Urine Creatinine Urine Total Protein Coronavirus (PCR) 06/23/20 06/23/20 06/23/20 05:50 12:29 12:34 WBC RBC Hgb Hct RDW Lymph % (Auto) [place] % (Auto) Eos % (Auto) Lymph # [place] # Seg Neutrophils % Seg Neuts % (Manual) Lymphocytes % (Manual) Seg Neutrophils # Seg Neutrophils # Man Lymphocytes # (Manual) Monocytes # (Manual) D-Dimer Heparin Anti-Xa Level ABG pH POC ABG pCO2 54.7 H POC ABG pO2 68.8 L ABG pO2 ABG HCO3 ABG O2 Saturation ABG Base Excess ABG Hemoglobin 9.8 L ABG Oxyhemoglobin 92.6 L VBG pH Oxyhemoglobin Sodium Potassium Chloride Carbon Dioxide BUN Creatinine Glucose POC Glucose 202 H 218 H Lactic Acid Calcium AST Alkaline Phosphatase Lactate Dehydrogenase Total Creatine Kinase CK-MB (CK-2) C-Reactive Protein Total Protein Albumin Urine WBC (Auto) Urine Creatinine Urine Total Protein Coronavirus (PCR) 06/23/20 06/23/20 06/24/20 16:02 22:22 01:06 WBC RBC Hgb Hct RDW Lymph % (Auto) [place] % (Auto) Eos % (Auto) Lymph # [place] # Seg Neutrophils % Seg Neuts % (Manual) Lymphocytes % (Manual) Seg Neutrophils # Seg Neutrophils # Man Lymphocytes # (Manual) Monocytes # (Manual) D-Dimer Heparin Anti-Xa Level ABG pH POC ABG pCO2 POC ABG pO2 ABG pO2 ABG HCO3 ABG O2 Saturation ABG Base Excess ABG Hemoglobin ABG Oxyhemoglobin VBG pH Oxyhemoglobin Sodium Potassium Chloride Carbon Dioxide BUN Creatinine Glucose POC Glucose 190 H 166 H 171 H Lactic Acid Calcium AST Alkaline Phosphatase Lactate Dehydrogenase Total Creatine Kinase CK-MB (CK-2) C-Reactive Protein Total Protein Albumin Urine WBC (Auto) Urine Creatinine Urine Total Protein Coronavirus (PCR) 06/24/20 06/24/20 06/24/20 04:48 05:35 11:48 WBC RBC Hgb Hct RDW Lymph % (Auto) [place] % (Auto) Eos % (Auto) Lymph # [place] # Seg Neutrophils % Seg Neuts % (Manual) Lymphocytes % (Manual) Seg Neutrophils # Seg Neutrophils # Man Lymphocytes # (Manual) Monocytes # (Manual) D-Dimer Heparin Anti-Xa Level ABG pH POC ABG pCO2 POC ABG pO2 ABG pO2 ABG HCO3 ABG O2 Saturation ABG Base Excess ABG Hemoglobin ABG Oxyhemoglobin VBG pH Oxyhemoglobin Sodium Potassium Chloride Carbon Dioxide BUN 75 H Creatinine 2.6 H Glucose 179 H POC Glucose 172 H 153 H Lactic Acid Calcium AST Alkaline Phosphatase Lactate Dehydrogenase Total Creatine Kinase CK-MB (CK-2) C-Reactive Protein Total Protein Albumin Urine WBC (Auto) Urine Creatinine Urine Total Protein Coronavirus (PCR) 06/24/20 06/24/20 06/25/20 16:38 21:52 12:00 WBC RBC Hgb Hct RDW Lymph % (Auto) [place] % (Auto) Eos % (Auto) Lymph # [place] # Seg Neutrophils % Seg Neuts % (Manual) Lymphocytes % (Manual) Seg Neutrophils # Seg Neutrophils # Man Lymphocytes # (Manual) Monocytes # (Manual) D-Dimer Heparin Anti-Xa Level ABG pH POC ABG pCO2 POC ABG pO2 ABG pO2 ABG HCO3 ABG O2 Saturation ABG Base Excess ABG Hemoglobin ABG Oxyhemoglobin VBG pH Oxyhemoglobin Sodium Potassium Chloride Carbon Dioxide BUN Creatinine Glucose POC Glucose 123 H 115 H 203 H Lactic Acid Calcium AST Alkaline Phosphatase Lactate Dehydrogenase Total Creatine Kinase CK-MB (CK-2) C-Reactive Protein Total Protein Albumin Urine WBC (Auto) Urine Creatinine Urine Total Protein Coronavirus (PCR) Allied health notes reviewed: RT
[2020-06-25 16:20] LABS: Calcium 8.2 mg/dL (8.4-10.2)
--- NOTE | 2020-06-25 19:37 | Progress Note ---
Assessment and Plan - Patient Problems (1) Acute kidney injury (AVANI) with acute tubular necrosis (ATN) Current Visit: Yes Status: Acute Plan to address problem: Kidney function had been improving. Patient is nonoliguric. Kidney function started worsening 06/23 and prerenal azotemia was suspected. Hypotensive medications decreased as patient had episodes of hypotension. No further episodes of hypotension. Kidney function is now improving. Follow-up electrolytes and renal function (2) Hypernatremia Current Visit: Yes Status: Acute Plan to address problem: Sodium has improved to normal. Continue free water intake orally (3) Acute hypoxemic respiratory failure Current Visit: Yes Status: Acute Plan to address problem: Being managed by pulmonary. S/p Extubation 06/12. Remains stable. Discharge planning by primary attending (4) Cardiac arrest Current Visit: Yes Status: Acute Plan to address problem: Patient is improving (5) Metabolic encephalopathy Current Visit: Yes Status: Acute Plan to address problem: Mental status is improving (6) Pneumonia due to COVID-19 virus Current Visit: Yes Status: Acute Plan to address problem: Patient has completed 5 days of Remdesevir. Completed course of steroids. Patient is improving (7) Cardiomyopathy Current Visit: No Status: Acute Qualifiers: Cardiomyopathy type: unspecified Qualified Code(s): I42.9 - Cardiomyopathy, unspecified Plan to address problem: Patient has peripheral edema and chest x-ray also suggests some vascular congestion. Follow-up electrolytes and renal function and if improves, will start Lasix p.o. (8) Hyperglycemia due to type 2 diabetes mellitus Current Visit: No Status: Acute Qualifiers: Diabetes mellitus snf insulin use: without roasterman use Qualified Code(s): E11.65 - Type 2 diabetes mellitus with hyperglycemia Plan to address problem: Blood sugar management by primary attending Subjective Date of service: 06/25/20 Principal diagnosis: Ac hypoxemic resp failure; COVID-19; pneumonia; CHF; Pulm HTN; OHS; DM II Interval history: Chart reviewed. I did not do physical exam at the bedside due to PPE conservation with the current COVID-19 pandemic, Objective - Exam Narrative Exam: I did not do physical exam at the bedside due to PPE conservation with the current COVID-19 pandemic - Vital Signs Vital signs: Vital Signs - 12hr 06/25/20 06/25/20 06/25/20 08:45 11:05 11:06 Temperature Pulse Rate 90 Respiratory Rate Blood Pressure 138/51 138/51 O2 Sat by Pulse 95 Oximetry 06/25/20 06/25/20 06/25/20 11:45 13:15 14:46 Temperature 98.0 F Pulse Rate 89 Respiratory 22 Rate Blood Pressure 147/54 147/54 O2 Sat by Pulse 93 96 Oximetry 06/25/20 17:12 Temperature 99.0 F Pulse Rate 85 Respiratory 22 Rate Blood Pressure 144/56 O2 Sat by Pulse 91 Oximetry - Lab 06/23/20 05:49 06/25/20 15:43 Most recent lab results ABG pH 7.360 (7.320-7.450) 06/23/20 12:34 ABG pCO2 48.2 mm Hg 06/20/20 16:35 ABG pO2 59.6 mm Hg (80.0-90.0) L 06/20/20 16:35 ABG HCO3 28.7 mmol/L (20.0-26.0) H 06/20/20 16:35 ABG O2 Saturation 93.5 % (95.0-99.0) L 06/20/20 16:35 Calcium 8.2 mg/dL (8.4-10.2) L 06/25/20 15:43 Urine Creatinine 82.2 mg/dL (0.1-20.0) H 06/06/20 04:00 Urine Sodium 20 mmol/L 06/06/20 04:00 Urine Total Protein 196 mg/dL (5-11.8) H 06/06/20 04:00 Medications & Allergies - Medications Allergies/Adverse Reactions: Allergies No Known Allergies Allergy (Verified 01/21/20 12:28) Home Medications: Home Medications Medication Instructions Recorded Confirmed Last Taken Type AtorvaSTATin [Lipitor] 20 mg PO QHS 05/12/20 05/29/20 Unknown History lisinopriL [Zestril TAB] 40 mg PO QDAY 05/12/20 05/29/20 Unknown History metFORMIN [Glucophage] 850 mg PO BID 05/12/20 05/29/20 Unknown History Acetaminophen [Acetaminophen TAB] 650 mg PO Q4H PRN tablet 05/13/20 05/29/20 Unknown Rx Dicyclomine [Bentyl] 20 mg PO BID #20 tablet 05/13/20 05/29/20 Unknown Rx Famotidine [Pepcid] 20 mg PO BID #30 tablet 05/13/20 05/29/20 Unknown Rx carvediloL [Coreg] 6.25 mg PO BID #60 05/13/20 05/29/20 Unknown Rx Active Medications: Generic Name Dose Route Start Last Admin Trade Name Freq PRN Reason Stop Dose Admin Acetaminophen 650 mg 06/09/20 10:57 06/22/20 11:58 Tylenol FEEDTUBE 650 mg Q6H PRN Administration Fever >101 Amlodipine Besylate 10 mg 06/02/20 11:00 06/25/20 11:05 Amlodipine PO 10 mg DAILY NELSON Administration Lipase/Protease/Amylase 1 each 05/29/20 13:39 06/24/20 22:51 Pancreazhoracio Lawson 10,500 Unit FEEDTUBE 1 each PRN PRN Administration For Clogged Feeding Tube Apixaban 5 mg 06/19/20 22:00 06/25/20 11:04 Eliquis PO 06/26/20 10:01 5 mg Q12HR NELSON Administration Protocol Carvedilol 12.5 mg 06/03/20 10:00 06/25/20 11:05 Coreg PO 12.5 mg BID NELSON Administration Clonidine HCl 0.2 mg 06/23/20 22:00 06/25/20 11:06 Catapres PO 0.2 mg Q12HR NELSON Administration Glycopyrrolate 2 mg 06/09/20 14:00 06/25/20 13:14 Glycopyrrolate PO 2 mg TID NELSON Administration Hydralazine HCl 50 mg 06/03/20 09:00 06/25/20 13:15 Apresoline PO 50 mg Q8HR NELSON Administration Hydrophilic Ointment 1 applic 05/28/20 13:49 Vaseline Lip Therapy TP Q2HR PRN Dry Lips Sodium Chloride 1,000 mls @ 75 mls/hr 06/23/20 17:30 06/25/20 11:14 Nacl 0.9% 1000 Ml IV 75 mls/hr DIRECT NELSON Administration Insulin Glargine 10 units 06/08/20 22:00 06/24/20 21:16 Lantus SUB-Q 10 units QHS NELSON Administration Insulin Human Lispro 0 unit 05/29/20 18:00 06/25/20 19:04 Humalog SUB-Q 3 unit Q6H NELSON Administration Protocol Labetalol HCl 20 mg 06/03/20 09:00 06/23/20 18:37 Labetalol IV 20 mg Q4H PRN Administration HYPERTENSION Lansoprazole 30 mg 06/05/20 22:00 06/25/20 11:13 Prevacid Solutab FEEDTUBE 30 mg BID NELSON Administration Levetiracetam 500 mg 06/16/20 11:00 06/25/20 11:07 Keppra PO 500 mg BID NELSON Administration Metoclopramide HCl 10 mg 06/10/20 20:00 06/25/20 13:17 Reglan IV 10 mg Q6H NELSON Administration Multi-Ingred Cream/Lotion/Oil/Oint 1 applic 05/28/20 13:49 Artificial Tears Ophth Oint OU Q4HR PRN Dry Eye(s) Ondansetron HCl 4 mg 06/02/20 09:00 06/09/20 16:48 Zofran IV 4 mg Q8H PRN Administration Nausea And Vomiting Scopolamine 1 each 06/05/20 14:00 06/23/20 09:33 Transderm-Scop TD 1 each Q3D NELSON Administration Senna 17.6 mg 06/03/20 10:00 06/25/20 11:07 Senokot FEEDTUBE 17.6 mg BID NELSON Administration Simple Syrup 15 ml 05/29/20 13:39 Simple Syrup FEEDTUBE PRN PRN Hypoglycemia Simple Syrup 30 ml 05/29/20 13:39 Simple Syrup FEEDTUBE PRN PRN Hypoglycemia Sodium Bicarbonate 325 mg 05/29/20 13:39 Sodium Bicarbonate FEEDTUBE PRN PRN For Clogged Feeding Tube Sodium Bicarbonate 650 mg 06/06/20 10:00 06/25/20 11:04 Sodium Bicarbonate PO 650 mg BID NELSON Administration Sodium Chloride 10 ml 05/28/20 22:00 06/25/20 11:10 Sodium Chloride Flush Syringe 10 Ml IV Not Given BID NELSON Sodium Chloride 10 ml 05/28/20 19:08 06/16/20 17:50 Sodium Chloride Flush Syringe 10 Ml IV 10 ml PRN PRN Administration LINE FLUSH
[2020-06-25] MEDS: INSULIN GLARGINE 100 UNITS/ML SUB-Q SCH (23:48)
[2020-06-26] MEDS: SODIUM CHLORIDE 0.9% 1000 ML 1,000 ML IV SCH ×2 (00:12→21:27)
[2020-06-26] MEDS: INSULIN LISPRO 100 UNIT/ML VIAL 3 mL SUB-Q SCH ×3 (00:17→12:30)
[2020-06-26] MEDS: METOCLOPRAMIDE 10 MG/2 ML INJ IV SCH ×4 (05:41→21:26)
[2020-06-26] MEDS: hydrALAZINE 25 MG TAB PO SCH ×3 (05:43→21:05)
[2020-06-26 06:55] LABS: Basophils % (Auto) 0.6 % (0.0-1.8); Eosinophils # (Auto) 0.2 K/mm3 (0.0-0.4); Eosinophils % (Auto) 3.5 % (0.0-4.3); Hematocrit 21.5 % (30.3-42.9); Hemoglobin 6.9 gm/dl (10.1-14.3); Lymphocytes # (Auto) 0.7 K/mm3 (1.2-5.4); Lymphocytes % (Auto) 10.9 % (13.4-35.0); Mean Corpuscular HGB Conc 32 % (30-34); Mean Corpuscular Volume 89 fl (79-97); Monocytes # (Auto) 0.6 K/mm3 (0.0-0.8); Monocytes % (Auto) 9.6 % (0.0-7.3); Platelet Count 410 K/mm3 (140-440); Red Blood Count 2.41 M/mm3 (3.65-5.03); Red Cell Distribution Width 16.7 % (13.2-15.2)
[2020-06-26 07:18] LABS: Calcium 8.5 mg/dL (8.4-10.2)
[2020-06-26] MEDS ORDERED: SODIUM CHLORIDE 0.9% 500 ML 500 ML IV NR (08:35)
[2020-06-26] MEDS: LANSOPRAZOLE 30 MG SOLUTAB FEEDTUBE SCH ×2 (10:06→21:05)
[2020-06-26] MEDS: levETIRAcetam 500 MG/5 ML ORAL LIQD PO SCH ×2 (10:06→21:05)
[2020-06-26] MEDS: SODIUM BICARBONATE 650 MG TAB PO SCH ×2 (10:07→21:06)
[2020-06-26] MEDS: GLYCOPYRROLATE 2 MG TAB PO SCH ×3 (10:07→21:04)
[2020-06-26] MEDS: cloNIDine 0.2 MG TAB PO SCH ×2 (10:08→21:05)
[2020-06-26] MEDS: APIXABAN 5 MG TAB PO SCH (10:08)
[2020-06-26] MEDS: SCOPOLAMINE TRANSDERMAL PATCH 72 HR TD SCH (10:08)
[2020-06-26] MEDS: amLODIPine 10 MG TAB PO SCH (10:09)
[2020-06-26] MEDS: carvediloL 12.5 MG TAB PO SCH ×2 (10:09→21:05)
[2020-06-26] MEDS: SENNOSIDES ORAL LIQD 8.8 MG/5 ML ORAL LIQD FEEDTUBE SCH ×2 (10:10→21:06)
--- NOTE | 2020-06-26 11:02 | Progress Note ---
Assessment and Plan - Patient Problems (1) Acute kidney injury (AVANI) with acute tubular necrosis (ATN) Current Visit: Yes Status: Acute Plan to address problem: Kidney function had been improving. Patient is nonoliguric. Kidney function started worsening 06/23 and prerenal azotemia was suspected. Hypotensive medications decreased as patient had episodes of hypotension. No further episodes of hypotension. Kidney function is improved and is not significantly changed from yesterday. Follow-up electrolytes and renal function (2) Hypernatremia Current Visit: Yes Status: Acute Plan to address problem: Sodium has improved to normal. (3) Acute hypoxemic respiratory failure Current Visit: Yes Status: Acute Plan to address problem: Being managed by pulmonary. S/p Extubation 06/12. Remains stable. Discharge planning by primary attending (4) Cardiac arrest Current Visit: Yes Status: Acute Plan to address problem: Patient is improving (5) Metabolic encephalopathy Current Visit: Yes Status: Acute Plan to address problem: Mental status is improving (6) Pneumonia due to COVID-19 virus Current Visit: Yes Status: Acute Plan to address problem: Patient has completed 5 days of Remdesevir. Completed course of steroids. Patient is improving (7) Cardiomyopathy Current Visit: No Status: Acute Qualifiers: Cardiomyopathy type: unspecified Qualified Code(s): I42.9 - Cardiomyopathy, unspecified Plan to address problem: Patient has peripheral edema and chest x-ray also suggests some vascular congestion. Follow-up electrolytes and renal function and if improves, will start Lasix p.o. (8) Hyperglycemia due to type 2 diabetes mellitus Current Visit: No Status: Acute Qualifiers: Diabetes mellitus meterman insulin use: without senior living use Qualified Code(s): E11.65 - Type 2 diabetes mellitus with hyperglycemia Plan to address problem: Blood sugar management by primary attending Subjective Date of service: 06/26/20 Principal diagnosis: Ac hypoxemic resp failure; COVID-19; pneumonia; CHF; Pulm HTN; OHS; DM II Interval history: Chart reviewed. I did not do physical exam at the bedside due to PPE conservation with the current COVID-19 pandemic, Objective - Exam Narrative Exam: I did not do physical exam at the bedside due to PPE conservation with the current COVID-19 pandemic - Vital Signs Vital signs: Vital Signs - 12hr 06/25/20 06/26/20 06/26/20 23:46 00:00 00:36 Temperature 99.0 F Pulse Rate 82 79 72 Respiratory 16 Rate Blood Pressure 144/58 123/40 O2 Sat by Pulse 96 Oximetry 06/26/20 06/26/20 06/26/20 04:00 05:18 05:43 Temperature 99.0 F Pulse Rate 84 79 79 Respiratory 18 Rate Blood Pressure 136/51 136/51 O2 Sat by Pulse 100 Oximetry 06/26/20 06/26/20 10:08 10:09 Temperature Pulse Rate 79 79 Respiratory Rate Blood Pressure 136/51 136/51 O2 Sat by Pulse Oximetry - Lab 06/26/20 06:34 06/26/20 06:34 Most recent lab results ABG pH 7.360 (7.320-7.450) 06/23/20 12:34 ABG pCO2 48.2 mm Hg 06/20/20 16:35 ABG pO2 59.6 mm Hg (80.0-90.0) L 06/20/20 16:35 ABG HCO3 28.7 mmol/L (20.0-26.0) H 06/20/20 16:35 ABG O2 Saturation 93.5 % (95.0-99.0) L 06/20/20 16:35 Calcium 8.5 mg/dL (8.4-10.2) 06/26/20 06:34 Urine Creatinine 82.2 mg/dL (0.1-20.0) H 06/06/20 04:00 Urine Sodium 20 mmol/L 06/06/20 04:00 Urine Total Protein 196 mg/dL (5-11.8) H 06/06/20 04:00 Medications & Allergies - Medications Allergies/Adverse Reactions: Allergies No Known Allergies Allergy (Verified 01/21/20 12:28) Home Medications: Home Medications Medication Instructions Recorded Confirmed Last Taken Type AtorvaSTATin [Lipitor] 20 mg PO QHS 05/12/20 05/29/20 Unknown History lisinopriL [Zestril TAB] 40 mg PO QDAY 05/12/20 05/29/20 Unknown History metFORMIN [Glucophage] 850 mg PO BID 05/12/20 05/29/20 Unknown History Acetaminophen [Acetaminophen TAB] 650 mg PO Q4H PRN tablet 05/13/20 05/29/20 Unknown Rx Dicyclomine [Bentyl] 20 mg PO BID #20 tablet 05/13/20 05/29/20 Unknown Rx Famotidine [Pepcid] 20 mg PO BID #30 tablet 05/13/20 05/29/20 Unknown Rx carvediloL [Coreg] 6.25 mg PO BID #60 05/13/20 05/29/20 Unknown Rx Active Medications: Generic Name Dose Route Start Last Admin Trade Name Freq PRN Reason Stop Dose Admin Acetaminophen 650 mg 06/09/20 10:57 06/22/20 11:58 Tylenol FEEDTUBE 650 mg Q6H PRN Administration Fever >101 Amlodipine Besylate 10 mg 06/02/20 11:00 06/26/20 10:09 Amlodipine PO 10 mg DAILY NELSON Administration Lipase/Protease/Amylase 1 each 05/29/20 13:39 06/24/20 22:51 Pancreaze 10,500 Unit FEEDTUBE 1 each PRN PRN Administration For Clogged Feeding Tube Carvedilol 12.5 mg 06/03/20 10:00 06/26/20 10:09 Coreg PO 12.5 mg BID NELSON Administration Clonidine HCl 0.2 mg 06/23/20 22:00 06/26/20 10:08 Catapres PO 0.2 mg Q12HR NELSON Administration Glycopyrrolate 2 mg 06/09/20 14:00 06/26/20 10:07 Glycopyrrolate PO 2 mg TID NELSON Administration Hydralazine HCl 50 mg 06/03/20 09:00 06/26/20 05:43 Apresoline PO 50 mg Q8HR NELSON Administration Hydrophilic Ointment 1 applic 05/28/20 13:49 Vaseline Lip Therapy TP Q2HR PRN Dry Lips Sodium Chloride 1,000 mls @ 75 mls/hr 06/23/20 17:30 06/26/20 00:12 Nacl 0.9% 1000 Ml IV 75 mls/hr DIRECT NELSON Administration Sodium Chloride 500 mls @ 0 mls/hr 06/26/20 08:35 Nacl 0.9% 500 Ml IV 06/27/20 08:34 ONCE NR As Directed Insulin Glargine 10 units 06/08/20 22:00 06/25/20 23:48 Lantus SUB-Q 10 units QHS NELSON Administration Insulin Human Lispro 0 unit 05/29/20 18:00 06/26/20 07:44 Humalog SUB-Q Not Given Q6H NELSON Protocol Labetalol HCl 20 mg 06/03/20 09:00 06/23/20 18:37 Labetalol IV 20 mg Q4H PRN Administration HYPERTENSION Lansoprazole 30 mg 06/05/20 22:00 06/26/20 10:06 Prevacid Solutab FEEDTUBE 30 mg BID NELSON Administration Levetiracetam 500 mg 06/16/20 11:00 06/26/20 10:06 Keppra PO 500 mg BID NELSON Administration Metoclopramide HCl 10 mg 06/10/20 20:00 06/26/20 10:11 Reglan IV 10 mg Q6H NELSON Administration Multi-Ingred Cream/Lotion/Oil/Oint 1 applic 05/28/20 13:49 Artificial Tears Ophth Oint OU Q4HR PRN Dry Eye(s) Ondansetron HCl 4 mg 06/02/20 09:00 06/09/20 16:48 Zofran IV 4 mg Q8H PRN Administration Nausea And Vomiting Scopolamine 1 each 06/05/20 14:00 06/26/20 10:08 Transderm-Scop TD 1 each Q3D NELSON Administration Senna 17.6 mg 06/03/20 10:00 06/26/20 10:10 Senokot FEEDTUBE 17.6 mg BID NELSON Administration Simple Syrup 15 ml 05/29/20 13:39 Simple Syrup FEEDTUBE PRN PRN Hypoglycemia Simple Syrup 30 ml 05/29/20 13:39 Simple Syrup FEEDTUBE PRN PRN Hypoglycemia Sodium Bicarbonate 325 mg 05/29/20 13:39 Sodium Bicarbonate FEEDTUBE PRN PRN For Clogged Feeding Tube Sodium Bicarbonate 650 mg 06/06/20 10:00 06/26/20 10:07 Sodium Bicarbonate PO 650 mg BID NELSON Administration Sodium Chloride 10 ml 05/28/20 22:00 06/25/20 23:43 Sodium Chloride Flush Syringe 10 Ml IV 10 ml BID NELSON Administration Sodium Chloride 10 ml 05/28/20 19:08 06/16/20 17:50 Sodium Chloride Flush Syringe 10 Ml IV 10 ml PRN PRN Administration LINE FLUSH
--- NOTE | 2020-06-26 13:04 | Progress Note ---
Assessment and Plan Acute hypoxemic respiratory failure s/p MVS Severe COVID infection Multifocal pneumonia Morbid obesity Acute toxic metabolic encephalopathy AVANI secondary to COVID/vasomotor nephropathy Bilateral pulmonary edema. Bilateral pleural effusions. History of congestive heart failure. Morbid obesity. History of pulmonary hypertension. History of hypertension. Diabetes. Obesity hypoventilation syndrome. Elevated serum inflammatory markers to include D-dimers and LDH levels. AVANI Metabolic acidosis. Oropharyngeal dysphagia. -Continue with BIPAP qhs and HFOT during the day -Incentive spirometry -Wean supplemental oxygen to keep O2 sats >90% -PT/OT, increase activity -Enteric nutrition with glycemic control, aspiration precautions -Continue to avoid nephrotoxins, closely monitor renal function, dose all medic ations for renal function -One dose of lasix with blood transfusion -Continue all supportive care - continue bronchodilators with pulmonary hygiene per RT - continue to avoid benzodiazepines, reduce the possibility of delirium - conservative fluid management measures as tolerated by hemodynamics and renal function - Bronchodilators with pulmonary hygiene per RT - Accuchecks with glycemic control per SSI (While critically ill target blood glucose of 140-180 mg/dL; avoid hypoglycemia) - Maintenance of sleep-wake cycle, avoid delirium - Stress ulcer prophylaxis -Famotidine - Mobility protocol, off loading and skin assessment for pressure ulcer prevention - Monitor hemodynamics closely - Supportive transfusions as indicated to keep HgB >7g/dL COVID SPECIFIC INTERVENTIONS -Airborne, contact isolation for COVID per facility protocols - s/p Remdesivir -IV steroids-Dexamethasone -Trend d-dimer,and other inflammatory markers per facility protocol -Convalescent plasma therapy per facility protocol -Continue all supportive care Life threatening condition- COVID 19 ARDS acute hypoxemic respiratory failure s/p MVS Mortality/Morbidity- High Complexity of medical decision making- High CONDITION: FAIR PROGNOSIS: GUARDED CODE STATUS: FULL CODE Subjective Date of service: 06/26/20 Principal diagnosis: Ac hypoxemic resp failure; COVID-19; pneumonia; CHF; Pulm HTN; OHS; DM II Interval history: Patient is seen today for: Ac hypoxemic resp failure; Coronavirus-19 infection; pneumonia; Pulmonary edema; Bilateral pleural effusions; CHF; Morbid obesity; pulmonary hypertension; OHS; DM II Seen and examined at bedside; 24hour events reviewed; nursing and respiratory care staff consulted; no adverse overnight events reported to me; resting pe acefully in bed,; chronically ill looking, on going need for high flow oxygen- Vapotherm- 15L 40% No overnight fevers, no vomiting, getting blood transfusion Objective Vital Signs - 12hr 06/26/20 06/26/20 06/26/20 04:00 05:18 05:43 Temperature 99.0 F Pulse Rate 84 79 79 Respiratory 18 Rate Blood Pressure 136/51 136/51 O2 Sat by Pulse 100 Oximetry 06/26/20 06/26/20 06/26/20 10:08 10:09 12:54 Temperature 99 F Pulse Rate 79 79 80 Respiratory 20 Rate Blood Pressure 136/51 136/51 142/58 O2 Sat by Pulse Oximetry Constitutional: appears uncomfortable, other (elderly looking obese female on HFNC with mildly increased respiratory effort at rest) Eyes: non-icteric ENT: oropharynx dry Neck: supple, no lymphadenopathy, no JVD, other (large neck circumference) Effort: mildly labored Ascultation: Bilateral: clear, diminished breath sounds, rales, rhonchi (scant) Percussion: Bilateral: not dull Cardiovascular: regular rate and rhythm, other (S1,S2) Gastrointestinal: normoactive bowel sounds, soft, non-tender, non-distended Integumentary: normal Extremities: no cyanosis, no edema, pink and warm, pulses normal, no ischemia or petechiae Neurologic: non-focal exam (grossly), pupils equal and round, other (lethargic) Psychiatric: other (unable to assess re: AMS) CBC and BMP: 06/27/20 05:00 06/27/20 05:00 ABG, PT/INR, D-dimer: ABG ABG pH 7.360 (7.320-7.450) 06/23/20 12:34 POC ABG pCO2 54.7 mmHg (32.0-48.0) H 06/23/20 12:34 ABG pCO2 48.2 mm Hg 06/20/20 16:35 POC ABG pO2 68.8 mmHg (83-108) L 06/23/20 12:34 ABG pO2 59.6 mm Hg (80.0-90.0) L 06/20/20 16:35 POC ABG HCO3 30.2 06/23/20 12:34 ABG O2 Saturation 93.5 % (95.0-99.0) L 06/20/20 16:35 PT/INR, D-dimer PT 14.2 Sec. (12.2-14.9) 05/29/20 15:10 INR 1.08 (0.87-1.13) 05/29/20 15:10 D-Dimer 414.52 ng/mlDDU (0-234) H 06/04/20 04:19 Abnormal lab findings: Abnormal Labs 05/28/20 05/28/20 05/28/20 13:29 13:47 13:47 WBC RBC Hgb Hct RDW 15.3 H Lymph % (Auto) Jackson % (Auto) Eos % (Auto) Lymph # [place] # Seg Neutrophils % Seg Neuts % (Manual) Lymphocytes % (Manual) Seg Neutrophils # Seg Neutrophils # Man Lymphocytes # (Manual) Monocytes # (Manual) D-Dimer Heparin Anti-Xa Level ABG pH POC ABG pCO2 POC ABG pO2 ABG pO2 ABG HCO3 ABG O2 Saturation ABG Base Excess ABG Hemoglobin ABG Oxyhemoglobin VBG pH Oxyhemoglobin Sodium Potassium 6.6 H* Chloride 109.2 H Carbon Dioxide 17 L BUN 29 H Creatinine 1.3 H Glucose 265 H POC Glucose 248 H Lactic Acid Calcium 8.1 L AST 63 H Alkaline Phosphatase Lactate Dehydrogenase Total Creatine Kinase 301 H CK-MB (CK-2) 4.3 H C-Reactive Protein Total Protein 5.4 L Albumin 2.6 L Urine WBC (Auto) Urine Creatinine Urine Total Protein Coronavirus (PCR) Crossmatch 05/28/20 05/28/20 05/28/20 13:47 13:47 14:46 WBC RBC Hgb Hct RDW Lymph % (Auto) [place] % (Auto) Eos % (Auto) Lymph # [place] # Seg Neutrophils % Seg Neuts % (Manual) Lymphocytes % (Manual) Seg Neutrophils # Seg Neutrophils # Man Lymphocytes # (Manual) Monocytes # (Manual) D-Dimer Heparin Anti-Xa Level ABG pH POC ABG pCO2 POC ABG pO2 ABG pO2 ABG HCO3 ABG O2 Saturation ABG Base Excess ABG Hemoglobin ABG Oxyhemoglobin VBG pH 7.152 L* Oxyhemoglobin Sodium Potassium 7.2 H* Chloride Carbon Dioxide BUN Creatinine Glucose POC Glucose Lactic Acid 3.40 H* Calcium AST Alkaline Phosphatase Lactate Dehydrogenase Total Creatine Kinase CK-MB (CK-2) C-Reactive Protein Total Protein Albumin Urine WBC (Auto) Urine Creatinine Urine Total Protein Coronavirus (PCR) Crossmatch 05/28/20 05/28/20 05/28/20 15:33 15:33 15:51 WBC RBC Hgb Hct RDW Lymph % (Auto) [place] % (Auto) Eos % (Auto) Lymph # [place] # Seg Neutrophils % Seg Neuts % (Manual) Lymphocytes % (Manual) Seg Neutrophils # Seg Neutrophils # Man Lymphocytes # (Manual) Monocytes # (Manual) D-Dimer 8780.43 H Heparin Anti-Xa Level ABG pH 7.284 L POC ABG pCO2 POC ABG pO2 ABG pO2 273.0 H ABG HCO3 ABG O2 Saturation 99.4 H ABG Base Excess -6.1 L ABG Hemoglobin 17.2 H ABG Oxyhemoglobin VBG pH Oxyhemoglobin Sodium Potassium Chloride Carbon Dioxide BUN Creatinine Glucose 152 H POC Glucose Lactic Acid Calcium AST Alkaline Phosphatase Lactate Dehydrogenase 365 H Total Creatine Kinase CK-MB (CK-2) C-Reactive Protein Total Protein Albumin Urine WBC (Auto) Urine Creatinine Urine Total Protein Coronavirus (PCR) Crossmatch 05/28/20 05/28/20 05/28/20 16:30 20:41 23:20 WBC RBC Hgb Hct RDW Lymph % (Auto) [place] % (Auto) Eos % (Auto) Lymph # [place] # Seg Neutrophils % Seg Neuts % (Manual) Lymphocytes % (Manual) Seg Neutrophils # Seg Neutrophils # Man Lymphocytes # (Manual) Monocytes # (Manual) D-Dimer Heparin Anti-Xa Level ABG pH POC ABG pCO2 POC ABG pO2 ABG pO2 ABG HCO3 ABG O2 Saturation ABG Base Excess ABG Hemoglobin ABG Oxyhemoglobin VBG pH Oxyhemoglobin Sodium Potassium Chloride Carbon Dioxide BUN Creatinine Glucose POC Glucose 225 H 224 H Lactic Acid Calcium AST Alkaline Phosphatase Lactate Dehydrogenase Total Creatine Kinase CK-MB (CK-2) C-Reactive Protein Total Protein Albumin Urine WBC (Auto) 17.0 H Urine Creatinine Urine Total Protein Coronavirus (PCR) Crossmatch 05/28/20 05/29/20 05/29/20 Unknown 04:35 04:43 WBC RBC 3.48 L Hgb 9.8 L Hct 29.4 L RDW 16.0 H Lymph % (Auto) 7.4 L [place] % (Auto) Eos % (Auto) Lymph # 0.7 L [place] # Seg Neutrophils % 89.1 H Seg Neuts % (Manual) Lymphocytes % (Manual) Seg Neutrophils # 8.1 H Seg Neutrophils # Man Lymphocytes # (Manual) Monocytes # (Manual) D-Dimer Heparin Anti-Xa Level ABG pH POC ABG pCO2 POC ABG pO2 ABG pO2 ABG HCO3 19.3 L ABG O2 Saturation ABG Base Excess -4.5 L ABG Hemoglobin 9.7 L ABG Oxyhemoglobin VBG pH Oxyhemoglobin Sodium Potassium Chloride Carbon Dioxide BUN Creatinine Glucose POC Glucose Lactic Acid Calcium AST Alkaline Phosphatase Lactate Dehydrogenase Total Creatine Kinase CK-MB (CK-2) C-Reactive Protein Total Protein Albumin Urine WBC (Auto) Urine Creatinine Urine Total Protein Coronavirus (PCR) Positive A Crossmatch 05/29/20 05/29/20 05/29/20 04:43 15:10 17:17 WBC RBC Hgb 9.3 L Hct 28.7 L RDW Lymph % (Auto) Jackson % (Auto) Eos % (Auto) Lymph # [place] # Seg Neutrophils % Seg Neuts % (Manual) Lymphocytes % (Manual) Seg Neutrophils # Seg Neutrophils # Man Lymphocytes # (Manual) Monocytes # (Manual) D-Dimer Heparin Anti-Xa Level ABG pH POC ABG pCO2 POC ABG pO2 ABG pO2 ABG HCO3 ABG O2 Saturation ABG Base Excess ABG Hemoglobin ABG Oxyhemoglobin VBG pH Oxyhemoglobin Sodium Potassium Chloride 110.2 H Carbon Dioxide 18 L BUN 32 H Creatinine 1.4 H Glucose 180 H POC Glucose 147 H Lactic Acid Calcium AST Alkaline Phosphatase Lactate Dehydrogenase Total Creatine Kinase CK-MB (CK-2) C-Reactive Protein Total Protein Albumin Urine WBC (Auto) Urine Creatinine Urine Total Protein Coronavirus (PCR) Crossmatch 05/30/20 05/30/20 05/30/20 00:08 00:12 04:15 WBC RBC Hgb Hct RDW Lymph % (Auto) [place] % (Auto) Eos % (Auto) Lymph # [place] # Seg Neutrophils % Seg Neuts % (Manual) Lymphocytes % (Manual) Seg Neutrophils # Seg Neutrophils # Man Lymphocytes # (Manual) Monocytes # (Manual) D-Dimer Heparin Anti-Xa Level 0.71 H ABG pH 7.460 H POC ABG pCO2 POC ABG pO2 ABG pO2 106.0 H ABG HCO3 18.9 L ABG O2 Saturation ABG Base Excess -4.4 L ABG Hemoglobin 6.8 L ABG Oxyhemoglobin VBG pH Oxyhemoglobin Sodium Potassium Chloride Carbon Dioxide BUN Creatinine Glucose POC Glucose 195 H Lactic Acid Calcium AST Alkaline Phosphatase Lactate Dehydrogenase Total Creatine Kinase CK-MB (CK-2) C-Reactive Protein Total Protein Albumin Urine WBC (Auto) Urine Creatinine Urine Total Protein Coronavirus (PCR) Crossmatch 05/30/20 05/30/20 05/30/20 06:07 08:37 12:33 WBC RBC Hgb Hct RDW Lymph % (Auto) Jackson % (Auto) Eos % (Auto) Lymph # [place] # Seg Neutrophils % Seg Neuts % (Manual) Lymphocytes % (Manual) Seg Neutrophils # Seg Neutrophils # Man Lymphocytes # (Manual) Monocytes # (Manual) D-Dimer Heparin Anti-Xa Level 0.85 H ABG pH POC ABG pCO2 POC ABG pO2 ABG pO2 ABG HCO3 ABG O2 Saturation ABG Base Excess ABG Hemoglobin ABG Oxyhemoglobin VBG pH Oxyhemoglobin Sodium Potassium Chloride Carbon Dioxide BUN Creatinine Glucose POC Glucose 182 H 187 H Lactic Acid Calcium AST Alkaline Phosphatase Lactate Dehydrogenase Total Creatine Kinase CK-MB (CK-2) C-Reactive Protein Total Protein Albumin Urine WBC (Auto) Urine Creatinine Urine Total Protein Coronavirus (PCR) Crossmatch 05/30/20 05/30/20 05/30/20 15:58 17:57 23:36 WBC RBC Hgb Hct RDW Lymph % (Auto) [place] % (Auto) Eos % (Auto) Lymph # [place] # Seg Neutrophils % Seg Neuts % (Manual) Lymphocytes % (Manual) Seg Neutrophils # Seg Neutrophils # Man Lymphocytes # (Manual) Monocytes # (Manual) D-Dimer Heparin Anti-Xa Level 1.03 H ABG pH POC ABG pCO2 POC ABG pO2 ABG pO2 ABG HCO3 ABG O2 Saturation ABG Base Excess ABG Hemoglobin ABG Oxyhemoglobin VBG pH Oxyhemoglobin Sodium Potassium Chloride Carbon Dioxide BUN Creatinine Glucose POC Glucose 208 H 185 H Lactic Acid Calcium AST Alkaline Phosphatase Lactate Dehydrogenase Total Creatine Kinase CK-MB (CK-2) C-Reactive Protein Total Protein Albumin Urine WBC (Auto) Urine Creatinine Urine Total Protein Coronavirus (PCR) Crossmatch 05/31/20 05/31/20 05/31/20 02:16 03:55 06:16 WBC RBC Hgb 9.2 L Hct 27.5 L RDW Lymph % (Auto) Jackson % (Auto) Eos % (Auto) Lymph # [place] # Seg Neutrophils % Seg Neuts % (Manual) Lymphocytes % (Manual) Seg Neutrophils # Seg Neutrophils # Man Lymphocytes # (Manual) Monocytes # (Manual) D-Dimer Heparin Anti-Xa Level ABG pH POC ABG pCO2 POC ABG pO2 ABG pO2 94.7 H ABG HCO3 18.6 L ABG O2 Saturation ABG Base Excess -5.5 L ABG Hemoglobin 7.9 L ABG Oxyhemoglobin VBG pH Oxyhemoglobin Sodium Potassium Chloride Carbon Dioxide BUN Creatinine Glucose POC Glucose 160 H Lactic Acid Calcium AST Alkaline Phosphatase Lactate Dehydrogenase Total Creatine Kinase CK-MB (CK-2) C-Reactive Protein Total Protein Albumin Urine WBC (Auto) Urine Creatinine Urine Total Protein Coronavirus (PCR) Crossmatch 05/31/20 05/31/20 05/31/20 12:20 13:03 18:13 WBC RBC Hgb Hct RDW Lymph % (Auto) [place] % (Auto) Eos % (Auto) Lymph # [place] # Seg Neutrophils % Seg Neuts % (Manual) Lymphocytes % (Manual) Seg Neutrophils # Seg Neutrophils # Man Lymphocytes # (Manual) Monocytes # (Manual) D-Dimer Heparin Anti-Xa Level ABG pH POC ABG pCO2 POC ABG pO2 ABG pO2 ABG HCO3 ABG O2 Saturation ABG Base Excess ABG Hemoglobin ABG Oxyhemoglobin VBG pH Oxyhemoglobin Sodium Potassium Chloride Carbon Dioxide 18 L BUN 48 H Creatinine 1.6 H Glucose 115 H POC Glucose 128 H 159 H Lactic Acid Calcium 8.3 L AST Alkaline Phosphatase Lactate Dehydrogenase Total Creatine Kinase CK-MB (CK-2) C-Reactive Protein Total Protein 5.4 L Albumin 2.4 L Urine WBC (Auto) Urine Creatinine Urine Total Protein Coronavirus (PCR) Crossmatch 05/31/20 06/01/20 06/01/20 23:51 04:00 05:48 WBC RBC Hgb Hct RDW Lymph % (Auto) [place] % (Auto) Eos % (Auto) Lymph # [place] # Seg Neutrophils % Seg Neuts % (Manual) Lymphocytes % (Manual) Seg Neutrophils # Seg Neutrophils # Man Lymphocytes # (Manual) Monocytes # (Manual) D-Dimer Heparin Anti-Xa Level ABG pH POC ABG pCO2 POC ABG pO2 ABG pO2 109.8 H ABG HCO3 18.8 L ABG O2 Saturation ABG Base Excess -5.9 L ABG Hemoglobin 7.8 L ABG Oxyhemoglobin VBG pH Oxyhemoglobin Sodium Potassium Chloride Carbon Dioxide BUN Creatinine Glucose POC Glucose 171 H 133 H Lactic Acid Calcium AST Alkaline Phosphatase Lactate Dehydrogenase Total Creatine Kinase CK-MB (CK-2) C-Reactive Protein Total Protein Albumin Urine WBC (Auto) Urine Creatinine Urine Total Protein Coronavirus (PCR) Crossmatch 06/01/20 06/01/20 06/02/20 12:28 17:29 00:08 WBC RBC Hgb Hct RDW Lymph % (Auto) [place] % (Auto) Eos % (Auto) Lymph # [place] # Seg Neutrophils % Seg Neuts % (Manual) Lymphocytes % (Manual) Seg Neutrophils # Seg Neutrophils # Man Lymphocytes # (Manual) Monocytes # (Manual) D-Dimer Heparin Anti-Xa Level ABG pH POC ABG pCO2 POC ABG pO2 ABG pO2 ABG HCO3 ABG O2 Saturation ABG Base Excess ABG Hemoglobin ABG Oxyhemoglobin VBG pH Oxyhemoglobin Sodium Potassium Chloride Carbon Dioxide BUN Creatinine Glucose POC Glucose 199 H 209 H 162 H Lactic Acid Calcium AST Alkaline Phosphatase Lactate Dehydrogenase Total Creatine Kinase CK-MB (CK-2) C-Reactive Protein Total Protein Albumin Urine WBC (Auto) Urine Creatinine Urine Total Protein Coronavirus (PCR) Crossmatch 06/02/20 06/02/20 06/02/20 04:20 04:20 04:44 WBC RBC Hgb 10.0 L Hct RDW Lymph % (Auto) [place] % (Auto) Eos % (Auto) Lymph # [place] # Seg Neutrophils % Seg Neuts % (Manual) Lymphocytes % (Manual) Seg Neutrophils # Seg Neutrophils # Man Lymphocytes # (Manual) Monocytes # (Manual) D-Dimer Heparin Anti-Xa Level 0.10 L ABG pH POC ABG pCO2 POC ABG pO2 ABG pO2 150.6 H ABG HCO3 ABG O2 Saturation ABG Base Excess -4.1 L ABG Hemoglobin 11.8 L ABG Oxyhemoglobin VBG pH Oxyhemoglobin Sodium Potassium Chloride Carbon Dioxide BUN Creatinine Glucose POC Glucose Lactic Acid Calcium AST Alkaline Phosphatase Lactate Dehydrogenase Total Creatine Kinase CK-MB (CK-2) C-Reactive Protein Total Protein Albumin Urine WBC (Auto) Urine Creatinine Urine Total Protein Coronavirus (PCR) Crossmatch 06/02/20 06/02/20 06/02/20 05:53 12:04 13:49 WBC RBC Hgb Hct RDW Lymph % (Auto) [place] % (Auto) Eos % (Auto) Lymph # [place] # Seg Neutrophils % Seg Neuts % (Manual) Lymphocytes % (Manual) Seg Neutrophils # Seg Neutrophils # Man Lymphocytes # (Manual) Monocytes # (Manual) D-Dimer Heparin Anti-Xa Level 0.28 L ABG pH POC ABG pCO2 POC ABG pO2 ABG pO2 ABG HCO3 ABG O2 Saturation ABG Base Excess ABG Hemoglobin ABG Oxyhemoglobin VBG pH Oxyhemoglobin Sodium Potassium Chloride Carbon Dioxide BUN Creatinine Glucose POC Glucose 149 H 220 H Lactic Acid Calcium AST Alkaline Phosphatase Lactate Dehydrogenase Total Creatine Kinase CK-MB (CK-2) C-Reactive Protein Total Protein Albumin Urine WBC (Auto) Urine Creatinine Urine Total Protein Coronavirus (PCR) Crossmatch 06/02/20 06/02/20 06/03/20 13:49 18:31 00:42 WBC RBC Hgb Hct RDW Lymph % (Auto) [place] % (Auto) Eos % (Auto) Lymph # [place] # Seg Neutrophils % Seg Neuts % (Manual) Lymphocytes % (Manual) Seg Neutrophils # Seg Neutrophils # Man Lymphocytes # (Manual) Monocytes # (Manual) D-Dimer 769.68 H Heparin Anti-Xa Level ABG pH POC ABG pCO2 POC ABG pO2 ABG pO2 ABG HCO3 ABG O2 Saturation ABG Base Excess ABG Hemoglobin ABG Oxyhemoglobin VBG pH Oxyhemoglobin Sodium Potassium Chloride Carbon Dioxide BUN Creatinine Glucose POC Glucose 225 H 212 H Lactic Acid Calcium AST Alkaline Phosphatase Lactate Dehydrogenase Total Creatine Kinase CK-MB (CK-2) C-Reactive Protein Total Protein Albumin Urine WBC (Auto) Urine Creatinine Urine Total Protein Coronavirus (PCR) Crossmatch 06/03/20 06/03/20 06/03/20 05:16 05:16 05:25 WBC 11.4 H RBC Hgb Hct RDW 16.4 H Lymph % (Auto) [place] % (Auto) Eos % (Auto) Lymph # [place] # Seg Neutrophils % Seg Neuts % (Manual) Lymphocytes % (Manual) Seg Neutrophils # Seg Neutrophils # Man Lymphocytes # (Manual) Monocytes # (Manual) D-Dimer Heparin Anti-Xa Level ABG pH POC ABG pCO2 POC ABG pO2 ABG pO2 160.9 H ABG HCO3 19.4 L ABG O2 Saturation ABG Base Excess -4.9 L ABG Hemoglobin 7.0 L ABG Oxyhemoglobin VBG pH Oxyhemoglobin Sodium Potassium Chloride Carbon Dioxide 18 L BUN 65 H Creatinine 2.0 H Glucose 175 H POC Glucose Lactic Acid Calcium 8.0 L AST Alkaline Phosphatase Lactate Dehydrogenase Total Creatine Kinase CK-MB (CK-2) C-Reactive Protein Total Protein 5.5 L Albumin 2.2 L Urine WBC (Auto) Urine Creatinine Urine Total Protein Coronavirus (PCR) Crossmatch 06/03/20 06/03/20 06/03/20 06:07 11:58 18:24 WBC RBC Hgb Hct RDW Lymph % (Auto) [place] % (Auto) Eos % (Auto) Lymph # [place] # Seg Neutrophils % Seg Neuts % (Manual) Lymphocytes % (Manual) Seg Neutrophils # Seg Neutrophils # Man Lymphocytes # (Manual) Monocytes # (Manual) D-Dimer Heparin Anti-Xa Level ABG pH POC ABG pCO2 POC ABG pO2 ABG pO2 ABG HCO3 ABG O2 Saturation ABG Base Excess ABG Hemoglobin ABG Oxyhemoglobin VBG pH Oxyhemoglobin Sodium Potassium Chloride Carbon Dioxide BUN Creatinine Glucose POC Glucose 177 H 163 H 211 H Lactic Acid Calcium AST Alkaline Phosphatase Lactate Dehydrogenase Total Creatine Kinase CK-MB (CK-2) C-Reactive Protein Total Protein Albumin Urine WBC (Auto) Urine Creatinine Urine Total Protein Coronavirus (PCR) Crossmatch 06/03/20 06/03/20 06/04/20 21:50 Unknown 00:26 WBC RBC Hgb Hct RDW Lymph % (Auto) [place] % (Auto) Eos % (Auto) Lymph # [place] # Seg Neutrophils % Seg Neuts % (Manual) Lymphocytes % (Manual) Seg Neutrophils # Seg Neutrophils # Man Lymphocytes # (Manual) Monocytes # (Manual) D-Dimer Heparin Anti-Xa Level ABG pH POC ABG pCO2 POC ABG pO2 ABG pO2 ABG HCO3 ABG O2 Saturation ABG Base Excess ABG Hemoglobin ABG Oxyhemoglobin VBG pH Oxyhemoglobin Sodium 135 L Potassium Chloride Carbon Dioxide 18 L BUN Creatinine Glucose POC Glucose 241 H Lactic Acid Calcium AST Alkaline Phosphatase Lactate Dehydrogenase Total Creatine Kinase CK-MB (CK-2) C-Reactive Protein Total Protein Albumin Urine WBC (Auto) 11.0 H Urine Creatinine Urine Total Protein Coronavirus (PCR) Crossmatch 06/04/20 06/04/20 06/04/20 03:35 04:19 04:19 WBC RBC 3.15 L Hgb 8.9 L Hct 26.8 L D RDW 15.9 H Lymph % (Auto) 6.0 L [place] % (Auto) Eos % (Auto) Lymph # 0.6 L [place] # Seg Neutrophils % 86.6 H Seg Neuts % (Manual) Lymphocytes % (Manual) Seg Neutrophils # 9.1 H Seg Neutrophils # Man Lymphocytes # (Manual) Monocytes # (Manual) D-Dimer Heparin Anti-Xa Level ABG pH 7.331 L POC ABG pCO2 POC ABG pO2 ABG pO2 ABG HCO3 ABG O2 Saturation ABG Base Excess -4.7 L ABG Hemoglobin 11.0 L ABG Oxyhemoglobin VBG pH Oxyhemoglobin 93.9 L Sodium 136 L Potassium Chloride Carbon Dioxide 20 L BUN 73 H Creatinine 2.0 H Glucose 192 H POC Glucose Lactic Acid Calcium 8.0 L AST Alkaline Phosphatase Lactate Dehydrogenase 271 H Total Creatine Kinase CK-MB (CK-2) C-Reactive Protein 2.20 H Total Protein 5.0 L Albumin 2.0 L Urine WBC (Auto) Urine Creatinine Urine Total Protein Coronavirus (PCR) Crossmatch 06/04/20 06/04/20 06/04/20 04:19 05:51 11:48 WBC RBC Hgb Hct RDW Lymph % (Auto) [place] % (Auto) Eos % (Auto) Lymph # [place] # Seg Neutrophils % Seg Neuts % (Manual) Lymphocytes % (Manual) Seg Neutrophils # Seg Neutrophils # Man Lymphocytes # (Manual) Monocytes # (Manual) D-Dimer 414.52 H Heparin Anti-Xa Level ABG pH POC ABG pCO2 POC ABG pO2 ABG pO2 ABG HCO3 ABG O2 Saturation ABG Base Excess ABG Hemoglobin ABG Oxyhemoglobin VBG pH Oxyhemoglobin Sodium Potassium Chloride Carbon Dioxide BUN Creatinine Glucose POC Glucose 179 H 213 H Lactic Acid Calcium AST Alkaline Phosphatase Lactate Dehydrogenase Total Creatine Kinase CK-MB (CK-2) C-Reactive Protein Total Protein Albumin Urine WBC (Auto) Urine Creatinine Urine Total Protein Coronavirus (PCR) Crossmatch 06/04/20 06/05/20 06/05/20 18:25 00:16 05:00 WBC RBC Hgb Hct RDW Lymph % (Auto) [place] % (Auto) Eos % (Auto) Lymph # [place] # Seg Neutrophils % Seg Neuts % (Manual) Lymphocytes % (Manual) Seg Neutrophils # Seg Neutrophils # Man Lymphocytes # (Manual) Monocytes # (Manual) D-Dimer Heparin Anti-Xa Level ABG pH 7.286 L POC ABG pCO2 POC ABG pO2 ABG pO2 96.2 H ABG HCO3 ABG O2 Saturation ABG Base Excess -6.3 L ABG Hemoglobin 8.8 L ABG Oxyhemoglobin VBG pH Oxyhemoglobin 94.8 L Sodium Potassium Chloride Carbon Dioxide BUN Creatinine Glucose POC Glucose 238 H 183 H Lactic Acid Calcium AST Alkaline Phosphatase Lactate Dehydrogenase Total Creatine Kinase CK-MB (CK-2) C-Reactive Protein Total Protein Albumin Urine WBC (Auto) Urine Creatinine Urine Total Protein Coronavirus (PCR) Crossmatch 06/05/20 06/05/20 06/05/20 05:39 07:25 07:25 WBC RBC 2.97 L Hgb 8.7 L Hct 25.7 L RDW 16.0 H Lymph % (Auto) 8.8 L [place] % (Auto) 13.3 H Eos % (Auto) Lymph # 0.8 L [place] # 1.3 H Seg Neutrophils % 77.3 H Seg Neuts % (Manual) Lymphocytes % (Manual) Seg Neutrophils # Seg Neutrophils # Man Lymphocytes # (Manual) Monocytes # (Manual) D-Dimer Heparin Anti-Xa Level ABG pH POC ABG pCO2 POC ABG pO2 ABG pO2 ABG HCO3 ABG O2 Saturation ABG Base Excess ABG Hemoglobin ABG Oxyhemoglobin VBG pH Oxyhemoglobin Sodium 133 L Potassium Chloride Carbon Dioxide 17 L BUN 89 H Creatinine 2.8 H Glucose 176 H POC Glucose 149 H Lactic Acid Calcium 7.7 L AST Alkaline Phosphatase Lactate Dehydrogenase Total Creatine Kinase CK-MB (CK-2) C-Reactive Protein Total Protein 4.2 L Albumin 1.9 L Urine WBC (Auto) Urine Creatinine Urine Total Protein Coronavirus (PCR) Crossmatch 06/05/20 06/05/20 06/05/20 07:25 12:05 15:41 WBC RBC Hgb Hct RDW Lymph % (Auto) [place] % (Auto) Eos % (Auto) Lymph # [place] # Seg Neutrophils % Seg Neuts % (Manual) Lymphocytes % (Manual) Seg Neutrophils # Seg Neutrophils # Man Lymphocytes # (Manual) Monocytes # (Manual) D-Dimer Heparin Anti-Xa Level 0.76 H 0.81 H ABG pH POC ABG pCO2 POC ABG pO2 ABG pO2 ABG HCO3 ABG O2 Saturation ABG Base Excess ABG Hemoglobin ABG Oxyhemoglobin VBG pH Oxyhemoglobin Sodium Potassium Chloride Carbon Dioxide BUN Creatinine Glucose POC Glucose 198 H Lactic Acid Calcium AST Alkaline Phosphatase Lactate Dehydrogenase Total Creatine Kinase CK-MB (CK-2) C-Reactive Protein Total Protein Albumin Urine WBC (Auto) Urine Creatinine Urine Total Protein Coronavirus (PCR) Crossmatch 06/05/20 06/05/20 06/06/20 18:08 23:25 04:00 WBC RBC Hgb Hct RDW Lymph % (Auto) [place] % (Auto) Eos % (Auto) Lymph # [place] # Seg Neutrophils % Seg Neuts % (Manual) Lymphocytes % (Manual) Seg Neutrophils # Seg Neutrophils # Man Lymphocytes # (Manual) Monocytes # (Manual) D-Dimer Heparin Anti-Xa Level ABG pH POC ABG pCO2 POC ABG pO2 ABG pO2 ABG HCO3 ABG O2 Saturation ABG Base Excess ABG Hemoglobin ABG Oxyhemoglobin VBG pH Oxyhemoglobin Sodium Potassium Chloride Carbon Dioxide BUN Creatinine Glucose POC Glucose 223 H 169 H Lactic Acid Calcium AST Alkaline Phosphatase Lactate Dehydrogenase Total Creatine Kinase CK-MB (CK-2) C-Reactive Protein Total Protein Albumin Urine WBC (Auto) 15.0 H Urine Creatinine Urine Total Protein Coronavirus (PCR) Crossmatch 06/06/20 06/06/20 06/06/20 04:00 05:33 05:38 WBC RBC 2.97 L Hgb 8.7 L Hct 26.8 L RDW 16.8 H Lymph % (Auto) [place] % (Auto) Eos % (Auto) Lymph # [place] # Seg Neutrophils % Seg Neuts % (Manual) Lymphocytes % (Manual) Seg Neutrophils # Seg Neutrophils # Man Lymphocytes # (Manual) Monocytes # (Manual) D-Dimer Heparin Anti-Xa Level ABG pH POC ABG pCO2 POC ABG pO2 ABG pO2 ABG HCO3 ABG O2 Saturation ABG Base Excess ABG Hemoglobin ABG Oxyhemoglobin VBG pH Oxyhemoglobin Sodium Potassium Chloride Carbon Dioxide BUN Creatinine Glucose POC Glucose 186 H Lactic Acid Calcium AST Alkaline Phosphatase Lactate Dehydrogenase Total Creatine Kinase CK-MB (CK-2) C-Reactive Protein Total Protein Albumin Urine WBC (Auto) Urine Creatinine 82.2 H Urine Total Protein 196 H Coronavirus (PCR) Crossmatch 06/06/20 06/06/20 06/06/20 05:38 12:25 17:03 WBC RBC Hgb Hct RDW Lymph % (Auto) [place] % (Auto) Eos % (Auto) Lymph # [place] # Seg Neutrophils % Seg Neuts % (Manual) Lymphocytes % (Manual) Seg Neutrophils # Seg Neutrophils # Man Lymphocytes # (Manual) Monocytes # (Manual) D-Dimer Heparin Anti-Xa Level ABG pH POC ABG pCO2 POC ABG pO2 ABG pO2 ABG HCO3 ABG O2 Saturation ABG Base Excess ABG Hemoglobin ABG Oxyhemoglobin VBG pH Oxyhemoglobin Sodium 134 L Potassium 5.2 H Chloride Carbon Dioxide 18 L BUN 97 H Creatinine 2.5 H Glucose 193 H POC Glucose 239 H 252 H Lactic Acid Calcium 7.5 L AST Alkaline Phosphatase Lactate Dehydrogenase Total Creatine Kinase CK-MB (CK-2) C-Reactive Protein Total Protein 4.1 L Albumin 1.9 L Urine WBC (Auto) Urine Creatinine Urine Total Protein Coronavirus (PCR) Crossmatch 06/07/20 06/07/20 06/07/20 00:16 01:49 04:00 WBC RBC 2.91 L Hgb 8.4 L Hct 25.0 L RDW 16.1 H Lymph % (Auto) 5.7 L [place] % (Auto) 10.5 H Eos % (Auto) Lymph # 0.6 L [place] # 1.1 H Seg Neutrophils % 83.6 H Seg Neuts % (Manual) Lymphocytes % (Manual) Seg Neutrophils # 9.1 H Seg Neutrophils # Man Lymphocytes # (Manual) Monocytes # (Manual) D-Dimer Heparin Anti-Xa Level 0.26 L ABG pH POC ABG pCO2 POC ABG pO2 ABG pO2 ABG HCO3 ABG O2 Saturation ABG Base Excess ABG Hemoglobin ABG Oxyhemoglobin VBG pH Oxyhemoglobin Sodium Potassium Chloride Carbon Dioxide BUN Creatinine Glucose POC Glucose 173 H Lactic Acid Calcium AST Alkaline Phosphatase Lactate Dehydrogenase Total Creatine Kinase CK-MB (CK-2) C-Reactive Protein Total Protein Albumin Urine WBC (Auto) Urine Creatinine Urine Total Protein Coronavirus (PCR) Crossmatch 06/07/20 06/07/20 06/07/20 04:00 04:54 05:51 WBC RBC Hgb Hct RDW Lymph % (Auto) [place] % (Auto) Eos % (Auto) Lymph # [place] # Seg Neutrophils % Seg Neuts % (Manual) Lymphocytes % (Manual) Seg Neutrophils # Seg Neutrophils # Man Lymphocytes # (Manual) Monocytes # (Manual) D-Dimer Heparin Anti-Xa Level ABG pH 7.317 L POC ABG pCO2 POC ABG pO2 ABG pO2 71.4 L ABG HCO3 ABG O2 Saturation 94.3 L ABG Base Excess -4.8 L ABG Hemoglobin 7.1 L ABG Oxyhemoglobin VBG pH Oxyhemoglobin 92.2 L Sodium 133 L Potassium Chloride Carbon Dioxide 18 L BUN 100 H Creatinine 2.5 H Glucose 158 H POC Glucose 168 H Lactic Acid Calcium 7.6 L AST Alkaline Phosphatase Lactate Dehydrogenase Total Creatine Kinase CK-MB (CK-2) C-Reactive Protein Total Protein 4.7 L Albumin 2.0 L Urine WBC (Auto) Urine Creatinine Urine Total Protein Coronavirus (PCR) Crossmatch 06/07/20 06/07/20 06/07/20 12:03 17:17 20:10 WBC RBC Hgb Hct RDW Lymph % (Auto) [place] % (Auto) Eos % (Auto) Lymph # [place] # Seg Neutrophils % Seg Neuts % (Manual) Lymphocytes % (Manual) Seg Neutrophils # Seg Neutrophils # Man Lymphocytes # (Manual) Monocytes # (Manual) D-Dimer Heparin Anti-Xa Level 0.17 L ABG pH POC ABG pCO2 POC ABG pO2 ABG pO2 ABG HCO3 ABG O2 Saturation ABG Base Excess ABG Hemoglobin ABG Oxyhemoglobin VBG pH Oxyhemoglobin Sodium Potassium Chloride Carbon Dioxide BUN Creatinine Glucose POC Glucose 276 H 281 H Lactic Acid Calcium AST Alkaline Phosphatase Lactate Dehydrogenase Total Creatine Kinase CK-MB (CK-2) C-Reactive Protein Total Protein Albumin Urine WBC (Auto) Urine Creatinine Urine Total Protein Coronavirus (PCR) Crossmatch 06/08/20 06/08/20 06/08/20 00:02 04:47 04:47 WBC 16.4 H RBC 3.07 L Hgb 8.6 L Hct 26.5 L RDW 16.3 H Lymph % (Auto) [place] % (Auto) Eos % (Auto) Lymph # [place] # Seg Neutrophils % Seg Neuts % (Manual) 90.0 H Lymphocytes % (Manual) 3.0 L Seg Neutrophils # Seg Neutrophils # Man 14.8 H Lymphocytes # (Manual) 0.5 L Monocytes # (Manual) 1.1 H D-Dimer Heparin Anti-Xa Level ABG pH POC ABG pCO2 POC ABG pO2 ABG pO2 ABG HCO3 ABG O2 Saturation ABG Base Excess ABG Hemoglobin ABG Oxyhemoglobin VBG pH Oxyhemoglobin Sodium 129 L Potassium Chloride 95.6 L Carbon Dioxide 17 L BUN 106 H Creatinine 2.5 H Glucose 213 H POC Glucose 242 H Lactic Acid Calcium 7.6 L AST Alkaline Phosphatase Lactate Dehydrogenase Total Creatine Kinase CK-MB (CK-2) C-Reactive Protein Total Protein 5.0 L Albumin 2.1 L Urine WBC (Auto) Urine Creatinine Urine Total Protein Coronavirus (PCR) Crossmatch 06/08/20 06/08/20 06/08/20 05:40 11:55 17:54 WBC RBC Hgb Hct RDW Lymph % (Auto) [place] % (Auto) Eos % (Auto) Lymph # [place] # Seg Neutrophils % Seg Neuts % (Manual) Lymphocytes % (Manual) Seg Neutrophils # Seg Neutrophils # Man Lymphocytes # (Manual) Monocytes # (Manual) D-Dimer Heparin Anti-Xa Level ABG pH POC ABG pCO2 POC ABG pO2 ABG pO2 ABG HCO3 ABG O2 Saturation ABG Base Excess ABG Hemoglobin ABG Oxyhemoglobin VBG pH Oxyhemoglobin Sodium Potassium Chloride Carbon Dioxide BUN Creatinine Glucose POC Glucose 221 H 218 H 163 H Lactic Acid Calcium AST Alkaline Phosphatase Lactate Dehydrogenase Total Creatine Kinase CK-MB (CK-2) C-Reactive Protein Total Protein Albumin Urine WBC (Auto) Urine Creatinine Urine Total Protein Coronavirus (PCR) Crossmatch 06/08/20 06/09/20 06/09/20 22:01 00:09 05:16 WBC 19.0 H RBC 3.35 L Hgb 9.2 L Hct 28.5 L RDW 16.3 H Lymph % (Auto) [place] % (Auto) Eos % (Auto) Lymph # [place] # Seg Neutrophils % Seg Neuts % (Manual) 85.0 H Lymphocytes % (Manual) 7.0 L Seg Neutrophils # Seg Neutrophils # Man 16.2 H Lymphocytes # (Manual) Monocytes # (Manual) 1.3 H D-Dimer Heparin Anti-Xa Level ABG pH POC ABG pCO2 POC ABG pO2 ABG pO2 ABG HCO3 ABG O2 Saturation ABG Base Excess ABG Hemoglobin ABG Oxyhemoglobin VBG pH Oxyhemoglobin Sodium Potassium Chloride Carbon Dioxide BUN Creatinine Glucose POC Glucose 182 H 150 H Lactic Acid Calcium AST Alkaline Phosphatase Lactate Dehydrogenase Total Creatine Kinase CK-MB (CK-2) C-Reactive Protein Total Protein Albumin Urine WBC (Auto) Urine Creatinine Urine Total Protein Coronavirus (PCR) Crossmatch 06/09/20 06/09/20 06/09/20 05:16 05:24 11:29 WBC RBC Hgb Hct RDW Lymph % (Auto) [place] % (Auto) Eos % (Auto) Lymph # [place] # Seg Neutrophils % Seg Neuts % (Manual) Lymphocytes % (Manual) Seg Neutrophils # Seg Neutrophils # Man Lymphocytes # (Manual) Monocytes # (Manual) D-Dimer Heparin Anti-Xa Level ABG pH POC ABG pCO2 POC ABG pO2 ABG pO2 ABG HCO3 ABG O2 Saturation ABG Base Excess ABG Hemoglobin ABG Oxyhemoglobin VBG pH Oxyhemoglobin Sodium 133 L Potassium Chloride Carbon Dioxide 19 L BUN 109 H Creatinine 2.1 H Glucose 133 H POC Glucose 128 H 119 H Lactic Acid Calcium 7.7 L AST Alkaline Phosphatase < 5 L Lactate Dehydrogenase Total Creatine Kinase CK-MB (CK-2) C-Reactive Protein Total Protein 4.6 L Albumin < 0.2 L Urine WBC (Auto) Urine Creatinine Urine Total Protein Coronavirus (PCR) Crossmatch 06/09/20 06/10/20 06/10/20 17:32 00:00 05:49 WBC RBC Hgb Hct RDW Lymph % (Auto) [place] % (Auto) Eos % (Auto) Lymph # [place] # Seg Neutrophils % Seg Neuts % (Manual) Lymphocytes % (Manual) Seg Neutrophils # Seg Neutrophils # Man Lymphocytes # (Manual) Monocytes # (Manual) D-Dimer Heparin Anti-Xa Level 0.19 L ABG pH POC ABG pCO2 POC ABG pO2 ABG pO2 ABG HCO3 ABG O2 Saturation ABG Base Excess ABG Hemoglobin ABG Oxyhemoglobin VBG pH Oxyhemoglobin Sodium Potassium Chloride Carbon Dioxide BUN Creatinine Glucose POC Glucose 106 H 117 H Lactic Acid Calcium AST Alkaline Phosphatase Lactate Dehydrogenase Total Creatine Kinase CK-MB (CK-2) C-Reactive Protein Total Protein Albumin Urine WBC (Auto) Urine Creatinine Urine Total Protein Coronavirus (PCR) Crossmatch 06/10/20 06/10/20 06/10/20 05:54 07:40 11:40 WBC RBC Hgb Hct RDW Lymph % (Auto) [place] % (Auto) Eos % (Auto) Lymph # [place] # Seg Neutrophils % Seg Neuts % (Manual) Lymphocytes % (Manual) Seg Neutrophils # Seg Neutrophils # Man Lymphocytes # (Manual) Monocytes # (Manual) D-Dimer Heparin Anti-Xa Level ABG pH POC ABG pCO2 POC ABG pO2 ABG pO2 ABG HCO3 ABG O2 Saturation ABG Base Excess ABG Hemoglobin ABG Oxyhemoglobin VBG pH Oxyhemoglobin Sodium 146 H D Potassium Chloride Carbon Dioxide 20 L BUN 99 H Creatinine 1.9 H Glucose 121 H POC Glucose 127 H 138 H Lactic Acid Calcium 8.2 L AST Alkaline Phosphatase Lactate Dehydrogenase Total Creatine Kinase CK-MB (CK-2) C-Reactive Protein Total Protein Albumin Urine WBC (Auto) Urine Creatinine Urine Total Protein Coronavirus (PCR) Crossmatch 06/10/20 06/10/20 06/10/20 14:44 17:31 23:22 WBC RBC Hgb Hct RDW Lymph % (Auto) [place] % (Auto) Eos % (Auto) Lymph # [place] # Seg Neutrophils % Seg Neuts % (Manual) Lymphocytes % (Manual) Seg Neutrophils # Seg Neutrophils # Man Lymphocytes # (Manual) Monocytes # (Manual) D-Dimer Heparin Anti-Xa Level 0.17 L ABG pH POC ABG pCO2 POC ABG pO2 ABG pO2 ABG HCO3 ABG O2 Saturation ABG Base Excess ABG Hemoglobin ABG Oxyhemoglobin VBG pH Oxyhemoglobin Sodium Potassium Chloride Carbon Dioxide BUN Creatinine Glucose POC Glucose 128 H 114 H Lactic Acid Calcium AST Alkaline Phosphatase Lactate Dehydrogenase Total Creatine Kinase CK-MB (CK-2) C-Reactive Protein Total Protein Albumin Urine WBC (Auto) Urine Creatinine Urine Total Protein Coronavirus (PCR) Crossmatch 06/11/20 06/11/20 06/11/20 00:22 03:45 03:45 WBC 14.6 H RBC 2.77 L Hgb 7.9 L Hct 24.3 L RDW 16.8 H Lymph % (Auto) 6.6 L [place] % (Auto) 8.5 H Eos % (Auto) Lymph # 1.0 L [place] # 1.2 H Seg Neutrophils % 82.9 H Seg Neuts % (Manual) Lymphocytes % (Manual) Seg Neutrophils # 12.1 H Seg Neutrophils # Man Lymphocytes # (Manual) Monocytes # (Manual) D-Dimer Heparin Anti-Xa Level 0.24 L ABG pH POC ABG pCO2 POC ABG pO2 ABG pO2 ABG HCO3 ABG O2 Saturation ABG Base Excess ABG Hemoglobin ABG Oxyhemoglobin VBG pH Oxyhemoglobin Sodium Potassium Chloride Carbon Dioxide 20 L BUN 88 H Creatinine 1.5 H Glucose 111 H POC Glucose Lactic Acid Calcium 8.2 L AST Alkaline Phosphatase Lactate Dehydrogenase Total Creatine Kinase CK-MB (CK-2) C-Reactive Protein Total Protein Albumin Urine WBC (Auto) Urine Creatinine Urine Total Protein Coronavirus (PCR) Crossmatch 06/11/20 06/11/20 06/11/20 06:03 10:22 11:11 WBC RBC Hgb Hct RDW Lymph % (Auto) [place] % (Auto) Eos % (Auto) Lymph # [place] # Seg Neutrophils % Seg Neuts % (Manual) Lymphocytes % (Manual) Seg Neutrophils # Seg Neutrophils # Man Lymphocytes # (Manual) Monocytes # (Manual) D-Dimer Heparin Anti-Xa Level 0.26 L ABG pH POC ABG pCO2 POC ABG pO2 ABG pO2 ABG HCO3 ABG O2 Saturation ABG Base Excess ABG Hemoglobin 9.6 L ABG Oxyhemoglobin VBG pH Oxyhemoglobin Sodium Potassium Chloride Carbon Dioxide BUN Creatinine Glucose POC Glucose 114 H Lactic Acid Calcium AST Alkaline Phosphatase Lactate Dehydrogenase Total Creatine Kinase CK-MB (CK-2) C-Reactive Protein Total Protein Albumin Urine WBC (Auto) Urine Creatinine Urine Total Protein Coronavirus (PCR) Crossmatch 06/11/20 06/11/20 06/12/20 12:24 17:24 00:21 WBC RBC Hgb Hct RDW Lymph % (Auto) [place] % (Auto) Eos % (Auto) Lymph # [place] # Seg Neutrophils % Seg Neuts % (Manual) Lymphocytes % (Manual) Seg Neutrophils # Seg Neutrophils # Man Lymphocytes # (Manual) Monocytes # (Manual) D-Dimer Heparin Anti-Xa Level ABG pH POC ABG pCO2 POC ABG pO2 ABG pO2 ABG HCO3 ABG O2 Saturation ABG Base Excess ABG Hemoglobin ABG Oxyhemoglobin VBG pH Oxyhemoglobin Sodium Potassium Chloride Carbon Dioxide BUN Creatinine Glucose POC Glucose 119 H 126 H 117 H Lactic Acid Calcium AST Alkaline Phosphatase Lactate Dehydrogenase Total Creatine Kinase CK-MB (CK-2) C-Reactive Protein Total Protein Albumin Urine WBC (Auto) Urine Creatinine Urine Total Protein Coronavirus (PCR) Crossmatch 06/12/20 06/12/20 06/12/20 02:46 02:46 05:46 WBC 13.2 H RBC 2.83 L Hgb 8.3 L Hct 24.3 L RDW 16.6 H Lymph % (Auto) 6.2 L [place] % (Auto) 9.5 H Eos % (Auto) Lymph # 0.8 L [place] # 1.3 H Seg Neutrophils % 81.9 H Seg Neuts % (Manual) Lymphocytes % (Manual) Seg Neutrophils # 10.9 H Seg Neutrophils # Man Lymphocytes # (Manual) Monocytes # (Manual) D-Dimer Heparin Anti-Xa Level ABG pH POC ABG pCO2 POC ABG pO2 ABG pO2 ABG HCO3 ABG O2 Saturation ABG Base Excess ABG Hemoglobin ABG Oxyhemoglobin VBG pH Oxyhemoglobin Sodium Potassium 3.5 L Chloride Carbon Dioxide BUN 77 H Creatinine 1.3 H Glucose POC Glucose 132 H Lactic Acid Calcium 8.3 L AST Alkaline Phosphatase Lactate Dehydrogenase Total Creatine Kinase CK-MB (CK-2) C-Reactive Protein Total Protein Albumin Urine WBC (Auto) Urine Creatinine Urine Total Protein Coronavirus (PCR) Crossmatch 06/12/20 06/12/20 06/12/20 09:20 12:16 17:48 WBC RBC Hgb Hct RDW Lymph % (Auto) [place] % (Auto) Eos % (Auto) Lymph # [place] # Seg Neutrophils % Seg Neuts % (Manual) Lymphocytes % (Manual) Seg Neutrophils # Seg Neutrophils # Man Lymphocytes # (Manual) Monocytes # (Manual) D-Dimer Heparin Anti-Xa Level ABG pH POC ABG pCO2 POC ABG pO2 ABG pO2 91.1 H ABG HCO3 ABG O2 Saturation ABG Base Excess ABG Hemoglobin ABG Oxyhemoglobin VBG pH Oxyhemoglobin 94.8 L Sodium Potassium Chloride Carbon Dioxide BUN Creatinine Glucose POC Glucose 167 H 182 H Lactic Acid Calcium AST Alkaline Phosphatase Lactate Dehydrogenase Total Creatine Kinase CK-MB (CK-2) C-Reactive Protein Total Protein Albumin Urine WBC (Auto) Urine Creatinine Urine Total Protein Coronavirus (PCR) Crossmatch 06/13/20 06/13/20 06/13/20 00:08 05:37 09:09 WBC RBC Hgb Hct RDW Lymph % (Auto) [place] % (Auto) Eos % (Auto) Lymph # [place] # Seg Neutrophils % Seg Neuts % (Manual) Lymphocytes % (Manual) Seg Neutrophils # Seg Neutrophils # Man Lymphocytes # (Manual) Monocytes # (Manual) D-Dimer Heparin Anti-Xa Level 0.86 H ABG pH POC ABG pCO2 POC ABG pO2 ABG pO2 ABG HCO3 ABG O2 Saturation ABG Base Excess ABG Hemoglobin ABG Oxyhemoglobin VBG pH Oxyhemoglobin Sodium Potassium Chloride Carbon Dioxide BUN Creatinine Glucose POC Glucose 142 H 119 H Lactic Acid Calcium AST Alkaline Phosphatase Lactate Dehydrogenase Total Creatine Kinase CK-MB (CK-2) C-Reactive Protein Total Protein Albumin Urine WBC (Auto) Urine Creatinine Urine Total Protein Coronavirus (PCR) Crossmatch 06/13/20 06/13/20 06/13/20 12:28 17:55 21:17 WBC RBC Hgb Hct RDW Lymph % (Auto) [place] % (Auto) Eos % (Auto) Lymph # [place] # Seg Neutrophils % Seg Neuts % (Manual) Lymphocytes % (Manual) Seg Neutrophils # Seg Neutrophils # Man Lymphocytes # (Manual) Monocytes # (Manual) D-Dimer Heparin Anti-Xa Level ABG pH POC ABG pCO2 POC ABG pO2 ABG pO2 ABG HCO3 ABG O2 Saturation ABG Base Excess ABG Hemoglobin ABG Oxyhemoglobin VBG pH Oxyhemoglobin Sodium Potassium Chloride Carbon Dioxide BUN 61 H Creatinine Glucose 131 H POC Glucose 165 H 174 H Lactic Acid Calcium AST Alkaline Phosphatase Lactate Dehydrogenase Total Creatine Kinase CK-MB (CK-2) C-Reactive Protein Total Protein Albumin Urine WBC (Auto) Urine Creatinine Urine Total Protein Coronavirus (PCR) Crossmatch 06/13/20 06/13/20 06/14/20 21:17 23:50 05:34 WBC RBC Hgb Hct RDW Lymph % (Auto) [place] % (Auto) Eos % (Auto) Lymph # [place] # Seg Neutrophils % Seg Neuts % (Manual) Lymphocytes % (Manual) Seg Neutrophils # Seg Neutrophils # Man Lymphocytes # (Manual) Monocytes # (Manual) D-Dimer Heparin Anti-Xa Level 0.72 H ABG pH POC ABG pCO2 POC ABG pO2 ABG pO2 ABG HCO3 ABG O2 Saturation ABG Base Excess ABG Hemoglobin ABG Oxyhemoglobin VBG pH Oxyhemoglobin Sodium 146 H Potassium Chloride 107.6 H Carbon Dioxide BUN 61 H Creatinine 1.3 H Glucose 135 H POC Glucose 146 H Lactic Acid Calcium AST Alkaline Phosphatase Lactate Dehydrogenase Total Creatine Kinase CK-MB (CK-2) C-Reactive Protein Total Protein Albumin Urine WBC (Auto) Urine Creatinine Urine Total Protein Coronavirus (PCR) Crossmatch 06/14/20 06/14/20 06/14/20 06:11 09:28 11:30 WBC RBC Hgb Hct RDW Lymph % (Auto) [place] % (Auto) Eos % (Auto) Lymph # [place] # Seg Neutrophils % Seg Neuts % (Manual) Lymphocytes % (Manual) Seg Neutrophils # Seg Neutrophils # Man Lymphocytes # (Manual) Monocytes # (Manual) D-Dimer Heparin Anti-Xa Level 0.90 H ABG pH POC ABG pCO2 POC ABG pO2 ABG pO2 ABG HCO3 ABG O2 Saturation ABG Base Excess ABG Hemoglobin ABG Oxyhemoglobin VBG pH Oxyhemoglobin Sodium Potassium Chloride Carbon Dioxide BUN Creatinine Glucose POC Glucose 141 H 186 H Lactic Acid Calcium AST Alkaline Phosphatase Lactate Dehydrogenase Total Creatine Kinase CK-MB (CK-2) C-Reactive Protein Total Protein Albumin Urine WBC (Auto) Urine Creatinine Urine Total Protein Coronavirus (PCR) Crossmatch 06/14/20 06/14/20 06/14/20 16:07 18:16 23:51 WBC RBC Hgb Hct RDW Lymph % (Auto) [place] % (Auto) Eos % (Auto) Lymph # [place] # Seg Neutrophils % Seg Neuts % (Manual) Lymphocytes % (Manual) Seg Neutrophils # Seg Neutrophils # Man Lymphocytes # (Manual) Monocytes # (Manual) D-Dimer Heparin Anti-Xa Level 0.82 H ABG pH POC ABG pCO2 POC ABG pO2 ABG pO2 ABG HCO3 ABG O2 Saturation ABG Base Excess ABG Hemoglobin ABG Oxyhemoglobin VBG pH Oxyhemoglobin Sodium Potassium Chloride Carbon Dioxide BUN Creatinine Glucose POC Glucose 106 H 154 H Lactic Acid Calcium AST Alkaline Phosphatase Lactate Dehydrogenase Total Creatine Kinase CK-MB (CK-2) C-Reactive Protein Total Protein Albumin Urine WBC (Auto) Urine Creatinine Urine Total Protein Coronavirus (PCR) Crossmatch 06/15/20 06/15/20 06/15/20 04:24 04:24 05:59 WBC RBC 2.75 L Hgb 7.9 L Hct 24.0 L RDW 16.4 H Lymph % (Auto) 12.9 L [place] % (Auto) 8.7 H Eos % (Auto) 4.6 H Lymph # 1.1 L [place] # Seg Neutrophils % 73.2 H Seg Neuts % (Manual) Lymphocytes % (Manual) Seg Neutrophils # Seg Neutrophils # Man Lymphocytes # (Manual) Monocytes # (Manual) D-Dimer Heparin Anti-Xa Level ABG pH POC ABG pCO2 POC ABG pO2 ABG pO2 ABG HCO3 ABG O2 Saturation ABG Base Excess ABG Hemoglobin ABG Oxyhemoglobin VBG pH Oxyhemoglobin Sodium Potassium 3.4 L Chloride Carbon Dioxide BUN 55 H Creatinine 1.3 H Glucose 142 H POC Glucose 131 H Lactic Acid Calcium AST Alkaline Phosphatase Lactate Dehydrogenase Total Creatine Kinase CK-MB (CK-2) C-Reactive Protein Total Protein Albumin Urine WBC (Auto) Urine Creatinine Urine Total Protein Coronavirus (PCR) Crossmatch 06/15/20 06/15/20 06/16/20 12:33 17:07 00:22 WBC RBC Hgb Hct RDW Lymph % (Auto) [place] % (Auto) Eos % (Auto) Lymph # [place] # Seg Neutrophils % Seg Neuts % (Manual) Lymphocytes % (Manual) Seg Neutrophils # Seg Neutrophils # Man Lymphocytes # (Manual) Monocytes # (Manual) D-Dimer Heparin Anti-Xa Level 0.21 L ABG pH POC ABG pCO2 POC ABG pO2 ABG pO2 ABG HCO3 ABG O2 Saturation ABG Base Excess ABG Hemoglobin ABG Oxyhemoglobin VBG pH Oxyhemoglobin Sodium Potassium Chloride Carbon Dioxide BUN Creatinine Glucose POC Glucose 180 H 185 H Lactic Acid Calcium AST Alkaline Phosphatase Lactate Dehydrogenase Total Creatine Kinase CK-MB (CK-2) C-Reactive Protein Total Protein Albumin Urine WBC (Auto) Urine Creatinine Urine Total Protein Coronavirus (PCR) Crossmatch 06/16/20 06/16/20 06/16/20 01:45 08:06 09:15 WBC RBC Hgb Hct RDW Lymph % (Auto) [place] % (Auto) Eos % (Auto) Lymph # [place] # Seg Neutrophils % Seg Neuts % (Manual) Lymphocytes % (Manual) Seg Neutrophils # Seg Neutrophils # Man Lymphocytes # (Manual) Monocytes # (Manual) D-Dimer Heparin Anti-Xa Level ABG pH POC ABG pCO2 POC ABG pO2 ABG pO2 ABG HCO3 ABG O2 Saturation ABG Base Excess ABG Hemoglobin ABG Oxyhemoglobin VBG pH Oxyhemoglobin Sodium Potassium Chloride Carbon Dioxide BUN 49 H Creatinine Glucose 154 H POC Glucose 140 H 171 H Lactic Acid Calcium AST Alkaline Phosphatase Lactate Dehydrogenase Total Creatine Kinase CK-MB (CK-2) C-Reactive Protein Total Protein Albumin Urine WBC (Auto) Urine Creatinine Urine Total Protein Coronavirus (PCR) Crossmatch 06/16/20 06/16/20 06/16/20 10:46 12:33 17:54 WBC RBC Hgb Hct RDW Lymph % (Auto) [place] % (Auto) Eos % (Auto) Lymph # [place] # Seg Neutrophils % Seg Neuts % (Manual) Lymphocytes % (Manual) Seg Neutrophils # Seg Neutrophils # Man Lymphocytes # (Manual) Monocytes # (Manual) D-Dimer Heparin Anti-Xa Level 0.12 L ABG pH POC ABG pCO2 POC ABG pO2 ABG pO2 ABG HCO3 ABG O2 Saturation ABG Base Excess ABG Hemoglobin ABG Oxyhemoglobin VBG pH Oxyhemoglobin Sodium Potassium Chloride Carbon Dioxide BUN Creatinine Glucose POC Glucose 166 H 151 H Lactic Acid Calcium AST Alkaline Phosphatase Lactate Dehydrogenase Total Creatine Kinase CK-MB (CK-2) C-Reactive Protein Total Protein Albumin Urine WBC (Auto) Urine Creatinine Urine Total Protein Coronavirus (PCR) Crossmatch 06/16/20 06/17/20 06/17/20 18:47 00:00 02:19 WBC RBC Hgb Hct RDW Lymph % (Auto) [place] % (Auto) Eos % (Auto) Lymph # [place] # Seg Neutrophils % Seg Neuts % (Manual) Lymphocytes % (Manual) Seg Neutrophils # Seg Neutrophils # Man Lymphocytes # (Manual) Monocytes # (Manual) D-Dimer Heparin Anti-Xa Level 0.73 H 0.77 H ABG pH POC ABG pCO2 POC ABG pO2 ABG pO2 ABG HCO3 ABG O2 Saturation ABG Base Excess ABG Hemoglobin ABG Oxyhemoglobin VBG pH Oxyhemoglobin Sodium Potassium Chloride Carbon Dioxide BUN Creatinine Glucose POC Glucose 139 H Lactic Acid Calcium AST Alkaline Phosphatase Lactate Dehydrogenase Total Creatine Kinase CK-MB (CK-2) C-Reactive Protein Total Protein Albumin Urine WBC (Auto) Urine Creatinine Urine Total Protein Coronavirus (PCR) Crossmatch 06/17/20 06/17/20 06/17/20 06:07 11:42 16:43 WBC RBC Hgb Hct RDW Lymph % (Auto) [place] % (Auto) Eos % (Auto) Lymph # [place] # Seg Neutrophils % Seg Neuts % (Manual) Lymphocytes % (Manual) Seg Neutrophils # Seg Neutrophils # Man Lymphocytes # (Manual) Monocytes # (Manual) D-Dimer Heparin Anti-Xa Level 0.73 H ABG pH POC ABG pCO2 POC ABG pO2 ABG pO2 ABG HCO3 ABG O2 Saturation ABG Base Excess ABG Hemoglobin ABG Oxyhemoglobin VBG pH Oxyhemoglobin Sodium Potassium Chloride Carbon Dioxide BUN Creatinine Glucose POC Glucose 169 H 169 H Lactic Acid Calcium AST Alkaline Phosphatase Lactate Dehydrogenase Total Creatine Kinase CK-MB (CK-2) C-Reactive Protein Total Protein Albumin Urine WBC (Auto) Urine Creatinine Urine Total Protein Coronavirus (PCR) Crossmatch 06/17/20 06/17/20 06/17/20 18:18 23:08 23:16 WBC RBC Hgb Hct RDW Lymph % (Auto) [place] % (Auto) Eos % (Auto) Lymph # [place] # Seg Neutrophils % Seg Neuts % (Manual) Lymphocytes % (Manual) Seg Neutrophils # Seg Neutrophils # Man Lymphocytes # (Manual) Monocytes # (Manual) D-Dimer Heparin Anti-Xa Level 0.71 H ABG pH POC ABG pCO2 POC ABG pO2 ABG pO2 ABG HCO3 ABG O2 Saturation ABG Base Excess ABG Hemoglobin ABG Oxyhemoglobin VBG pH Oxyhemoglobin Sodium Potassium Chloride Carbon Dioxide BUN Creatinine Glucose POC Glucose 159 H 134 H Lactic Acid Calcium AST Alkaline Phosphatase Lactate Dehydrogenase Total Creatine Kinase CK-MB (CK-2) C-Reactive Protein Total Protein Albumin Urine WBC (Auto) Urine Creatinine Urine Total Protein Coronavirus (PCR) Crossmatch 06/18/20 06/18/20 06/18/20 04:42 05:52 11:50 WBC RBC Hgb Hct RDW Lymph % (Auto) [place] % (Auto) Eos % (Auto) Lymph # [place] # Seg Neutrophils % Seg Neuts % (Manual) Lymphocytes % (Manual) Seg Neutrophils # Seg Neutrophils # Man Lymphocytes # (Manual) Monocytes # (Manual) D-Dimer Heparin Anti-Xa Level ABG pH POC ABG pCO2 POC ABG pO2 ABG pO2 ABG HCO3 ABG O2 Saturation ABG Base Excess ABG Hemoglobin ABG Oxyhemoglobin VBG pH Oxyhemoglobin Sodium Potassium Chloride Carbon Dioxide BUN 44 H Creatinine Glucose 115 H POC Glucose 171 H 167 H Lactic Acid Calcium AST Alkaline Phosphatase Lactate Dehydrogenase Total Creatine Kinase CK-MB (CK-2) C-Reactive Protein Total Protein Albumin Urine WBC (Auto) Urine Creatinine Urine Total Protein Coronavirus (PCR) Crossmatch 06/18/20 06/19/20 06/19/20 23:46 05:48 07:52 WBC RBC Hgb Hct RDW Lymph % (Auto) [place] % (Auto) Eos % (Auto) Lymph # [place] # Seg Neutrophils % Seg Neuts % (Manual) Lymphocytes % (Manual) Seg Neutrophils # Seg Neutrophils # Man Lymphocytes # (Manual) Monocytes # (Manual) D-Dimer Heparin Anti-Xa Level ABG pH POC ABG pCO2 POC ABG pO2 ABG pO2 ABG HCO3 ABG O2 Saturation ABG Base Excess ABG Hemoglobin ABG Oxyhemoglobin VBG pH Oxyhemoglobin Sodium Potassium Chloride Carbon Dioxide BUN Creatinine Glucose POC Glucose 130 H 207 H 175 H Lactic Acid Calcium AST Alkaline Phosphatase Lactate Dehydrogenase Total Creatine Kinase CK-MB (CK-2) C-Reactive Protein Total Protein Albumin Urine WBC (Auto) Urine Creatinine Urine Total Protein Coronavirus (PCR) Crossmatch 06/19/20 06/19/20 06/20/20 11:42 22:54 05:17 WBC RBC Hgb Hct RDW Lymph % (Auto) [place] % (Auto) Eos % (Auto) Lymph # [place] # Seg Neutrophils % Seg Neuts % (Manual) Lymphocytes % (Manual) Seg Neutrophils # Seg Neutrophils # Man Lymphocytes # (Manual) Monocytes # (Manual) D-Dimer Heparin Anti-Xa Level ABG pH POC ABG pCO2 POC ABG pO2 ABG pO2 ABG HCO3 ABG O2 Saturation ABG Base Excess ABG Hemoglobin ABG Oxyhemoglobin VBG pH Oxyhemoglobin Sodium Potassium Chloride Carbon Dioxide BUN Creatinine Glucose POC Glucose 166 H 135 H 218 H Lactic Acid Calcium AST Alkaline Phosphatase Lactate Dehydrogenase Total Creatine Kinase CK-MB (CK-2) C-Reactive Protein Total Protein Albumin Urine WBC (Auto) Urine Creatinine Urine Total Protein Coronavirus (PCR) Crossmatch 06/20/20 06/20/20 06/20/20 12:04 16:25 16:35 WBC RBC Hgb Hct RDW Lymph % (Auto) [place] % (Auto) Eos % (Auto) Lymph # [place] # Seg Neutrophils % Seg Neuts % (Manual) Lymphocytes % (Manual) Seg Neutrophils # Seg Neutrophils # Man Lymphocytes # (Manual) Monocytes # (Manual) D-Dimer Heparin Anti-Xa Level ABG pH POC ABG pCO2 POC ABG pO2 ABG pO2 59.6 L ABG HCO3 28.7 H ABG O2 Saturation 93.5 L ABG Base Excess 3.4 H ABG Hemoglobin 7.2 L ABG Oxyhemoglobin VBG pH Oxyhemoglobin 91.3 L Sodium Potassium Chloride Carbon Dioxide BUN Creatinine Glucose POC Glucose 194 H 137 H Lactic Acid Calcium AST Alkaline Phosphatase Lactate Dehydrogenase Total Creatine Kinase CK-MB (CK-2) C-Reactive Protein Total Protein Albumin Urine WBC (Auto) Urine Creatinine Urine Total Protein Coronavirus (PCR) Crossmatch 06/20/20 06/21/20 06/21/20 23:59 06:25 12:01 WBC RBC Hgb Hct RDW Lymph % (Auto) [place] % (Auto) Eos % (Auto) Lymph # [place] # Seg Neutrophils % Seg Neuts % (Manual) Lymphocytes % (Manual) Seg Neutrophils # Seg Neutrophils # Man Lymphocytes # (Manual) Monocytes # (Manual) D-Dimer Heparin Anti-Xa Level ABG pH POC ABG pCO2 POC ABG pO2 ABG pO2 ABG HCO3 ABG O2 Saturation ABG Base Excess ABG Hemoglobin ABG Oxyhemoglobin VBG pH Oxyhemoglobin Sodium Potassium Chloride Carbon Dioxide BUN Creatinine Glucose POC Glucose 156 H 177 H 195 H Lactic Acid Calcium AST Alkaline Phosphatase Lactate Dehydrogenase Total Creatine Kinase CK-MB (CK-2) C-Reactive Protein Total Protein Albumin Urine WBC (Auto) Urine Creatinine Urine Total Protein Coronavirus (PCR) Crossmatch 06/21/20 06/21/20 06/22/20 17:04 21:51 05:06 WBC RBC Hgb Hct RDW Lymph % (Auto) [place] % (Auto) Eos % (Auto) Lymph # [place] # Seg Neutrophils % Seg Neuts % (Manual) Lymphocytes % (Manual) Seg Neutrophils # Seg Neutrophils # Man Lymphocytes # (Manual) Monocytes # (Manual) D-Dimer Heparin Anti-Xa Level ABG pH POC ABG pCO2 POC ABG pO2 ABG pO2 ABG HCO3 ABG O2 Saturation ABG Base Excess ABG Hemoglobin ABG Oxyhemoglobin VBG pH Oxyhemoglobin Sodium Potassium Chloride Carbon Dioxide BUN Creatinine Glucose POC Glucose 156 H 154 H 167 H Lactic Acid Calcium AST Alkaline Phosphatase Lactate Dehydrogenase Total Creatine Kinase CK-MB (CK-2) C-Reactive Protein Total Protein Albumin Urine WBC (Auto) Urine Creatinine Urine Total Protein Coronavirus (PCR) Crossmatch 06/22/20 06/22/20 06/22/20 11:20 15:27 16:58 WBC RBC Hgb Hct RDW Lymph % (Auto) [place] % (Auto) Eos % (Auto) Lymph # [place] # Seg Neutrophils % Seg Neuts % (Manual) Lymphocytes % (Manual) Seg Neutrophils # Seg Neutrophils # Man Lymphocytes # (Manual) Monocytes # (Manual) D-Dimer Heparin Anti-Xa Level ABG pH 7.206 L POC ABG pCO2 79.9 H POC ABG pO2 ABG pO2 ABG HCO3 ABG O2 Saturation ABG Base Excess ABG Hemoglobin 8.3 L ABG Oxyhemoglobin VBG pH Oxyhemoglobin Sodium Potassium Chloride Carbon Dioxide BUN Creatinine Glucose POC Glucose 181 H 230 H Lactic Acid Calcium AST Alkaline Phosphatase Lactate Dehydrogenase Total Creatine Kinase CK-MB (CK-2) C-Reactive Protein Total Protein Albumin Urine WBC (Auto) Urine Creatinine Urine Total Protein Coronavirus (PCR) Crossmatch 06/22/20 06/23/20 06/23/20 22:26 05:49 05:49 WBC RBC 2.58 L Hgb 7.4 L Hct 23.2 L RDW 17.0 H Lymph % (Auto) [place] % (Auto) 11.2 H Eos % (Auto) Lymph # 1.0 L [place] # Seg Neutrophils % Seg Neuts % (Manual) Lymphocytes % (Manual) Seg Neutrophils # Seg Neutrophils # Man Lymphocytes # (Manual) Monocytes # (Manual) D-Dimer Heparin Anti-Xa Level ABG pH POC ABG pCO2 POC ABG pO2 ABG pO2 ABG HCO3 ABG O2 Saturation ABG Base Excess ABG Hemoglobin ABG Oxyhemoglobin VBG pH Oxyhemoglobin Sodium Potassium Chloride Carbon Dioxide BUN 68 H Creatinine 2.4 H Glucose 198 H POC Glucose 195 H Lactic Acid Calcium AST Alkaline Phosphatase Lactate Dehydrogenase Total Creatine Kinase CK-MB (CK-2) C-Reactive Protein Total Protein Albumin Urine WBC (Auto) Urine Creatinine Urine Total Protein Coronavirus (PCR) Crossmatch 06/23/20 06/23/20 06/23/20 05:50 12:29 12:34 WBC RBC Hgb Hct RDW Lymph % (Auto) [place] % (Auto) Eos % (Auto) Lymph # [place] # Seg Neutrophils % Seg Neuts % (Manual) Lymphocytes % (Manual) Seg Neutrophils # Seg Neutrophils # Man Lymphocytes # (Manual) Monocytes # (Manual) D-Dimer Heparin Anti-Xa Level ABG pH POC ABG pCO2 54.7 H POC ABG pO2 68.8 L ABG pO2 ABG HCO3 ABG O2 Saturation ABG Base Excess ABG Hemoglobin 9.8 L ABG Oxyhemoglobin 92.6 L VBG pH Oxyhemoglobin Sodium Potassium Chloride Carbon Dioxide BUN Creatinine Glucose POC Glucose 202 H 218 H Lactic Acid Calcium AST Alkaline Phosphatase Lactate Dehydrogenase Total Creatine Kinase CK-MB (CK-2) C-Reactive Protein Total Protein Albumin Urine WBC (Auto) Urine Creatinine Urine Total Protein Coronavirus (PCR) Crossmatch 06/23/20 06/23/20 06/24/20 16:02 22:22 01:06 WBC RBC Hgb Hct RDW Lymph % (Auto) [place] % (Auto) Eos % (Auto) Lymph # [place] # Seg Neutrophils % Seg Neuts % (Manual) Lymphocytes % (Manual) Seg Neutrophils # Seg Neutrophils # Man Lymphocytes # (Manual) Monocytes # (Manual) D-Dimer Heparin Anti-Xa Level ABG pH POC ABG pCO2 POC ABG pO2 ABG pO2 ABG HCO3 ABG O2 Saturation ABG Base Excess ABG Hemoglobin ABG Oxyhemoglobin VBG pH Oxyhemoglobin Sodium Potassium Chloride Carbon Dioxide BUN Creatinine Glucose POC Glucose 190 H 166 H 171 H Lactic Acid Calcium AST Alkaline Phosphatase Lactate Dehydrogenase Total Creatine Kinase CK-MB (CK-2) C-Reactive Protein Total Protein Albumin Urine WBC (Auto) Urine Creatinine Urine Total Protein Coronavirus (PCR) Crossmatch 06/24/20 06/24/20 06/24/20 04:48 05:35 11:48 WBC RBC Hgb Hct RDW Lymph % (Auto) [place] % (Auto) Eos % (Auto) Lymph # [place] # Seg Neutrophils % Seg Neuts % (Manual) Lymphocytes % (Manual) Seg Neutrophils # Seg Neutrophils # Man Lymphocytes # (Manual) Monocytes # (Manual) D-Dimer Heparin Anti-Xa Level ABG pH POC ABG pCO2 POC ABG pO2 ABG pO2 ABG HCO3 ABG O2 Saturation ABG Base Excess ABG Hemoglobin ABG Oxyhemoglobin VBG pH Oxyhemoglobin Sodium Potassium Chloride Carbon Dioxide BUN 75 H Creatinine 2.6 H Glucose 179 H POC Glucose 172 H 153 H Lactic Acid Calcium AST Alkaline Phosphatase Lactate Dehydrogenase Total Creatine Kinase CK-MB (CK-2) C-Reactive Protein Total Protein Albumin Urine WBC (Auto) Urine Creatinine Urine Total Protein Coronavirus (PCR) Crossmatch 06/24/20 06/24/20 06/25/20 16:38 21:52 12:00 WBC RBC Hgb Hct RDW Lymph % (Auto) [place] % (Auto) Eos % (Auto) Lymph # [place] # Seg Neutrophils % Seg Neuts % (Manual) Lymphocytes % (Manual) Seg Neutrophils # Seg Neutrophils # Man Lymphocytes # (Manual) Monocytes # (Manual) D-Dimer Heparin Anti-Xa Level ABG pH POC ABG pCO2 POC ABG pO2 ABG pO2 ABG HCO3 ABG O2 Saturation ABG Base Excess ABG Hemoglobin ABG Oxyhemoglobin VBG pH Oxyhemoglobin Sodium Potassium Chloride Carbon Dioxide BUN Creatinine Glucose POC Glucose 123 H 115 H 203 H Lactic Acid Calcium AST Alkaline Phosphatase Lactate Dehydrogenase Total Creatine Kinase CK-MB (CK-2) C-Reactive Protein Total Protein Albumin Urine WBC (Auto) Urine Creatinine Urine Total Protein Coronavirus (PCR) Crossmatch 06/25/20 06/25/20 06/25/20 15:43 16:37 23:02 WBC RBC Hgb Hct RDW Lymph % (Auto) [place] % (Auto) Eos % (Auto) Lymph # [place] # Seg Neutrophils % Seg Neuts % (Manual) Lymphocytes % (Manual) Seg Neutrophils # Seg Neutrophils # Man Lymphocytes # (Manual) Monocytes # (Manual) D-Dimer Heparin Anti-Xa Level ABG pH POC ABG pCO2 POC ABG pO2 ABG pO2 ABG HCO3 ABG O2 Saturation ABG Base Excess ABG Hemoglobin ABG Oxyhemoglobin VBG pH Oxyhemoglobin Sodium Potassium Chloride Carbon Dioxide BUN 71 H Creatinine 1.8 H Glucose 170 H POC Glucose 191 H 126 H Lactic Acid Calcium 8.2 L AST Alkaline Phosphatase Lactate Dehydrogenase Total Creatine Kinase CK-MB (CK-2) C-Reactive Protein Total Protein Albumin Urine WBC (Auto) Urine Creatinine Urine Total Protein Coronavirus (PCR) Crossmatch 06/26/20 06/26/20 06/26/20 06:34 06:34 09:27 WBC RBC 2.41 L Hgb 6.9 L Hct 21.5 L RDW 16.7 H Lymph % (Auto) 10.9 L Jackson % (Auto) 9.6 H Eos % (Auto) Lymph # 0.7 L Jackson # Seg Neutrophils % 75.4 H Seg Neuts % (Manual) Lymphocytes % (Manual) Seg Neutrophils # Seg Neutrophils # Man Lymphocytes # (Manual) Monocytes # (Manual) D-Dimer Heparin Anti-Xa Level ABG pH POC ABG pCO2 POC ABG pO2 ABG pO2 ABG HCO3 ABG O2 Saturation ABG Base Excess ABG Hemoglobin ABG Oxyhemoglobin VBG pH Oxyhemoglobin Sodium Potassium Chloride Carbon Dioxide BUN 77 H Creatinine 1.9 H Glucose 190 H POC Glucose Lactic Acid Calcium AST Alkaline Phosphatase Lactate Dehydrogenase Total Creatine Kinase CK-MB (CK-2) C-Reactive Protein Total Protein Albumin Urine WBC (Auto) Urine Creatinine Urine Total Protein Coronavirus (PCR) Crossmatch See Detail 06/26/20 12:15 WBC RBC Hgb Hct RDW Lymph % (Auto) Jackson % (Auto) Eos % (Auto) Lymph # Jackson # Seg Neutrophils % Seg Neuts % (Manual) Lymphocytes % (Manual) Seg Neutrophils # Seg Neutrophils # Man Lymphocytes # (Manual) Monocytes # (Manual) D-Dimer Heparin Anti-Xa Level ABG pH POC ABG pCO2 POC ABG pO2 ABG pO2 ABG HCO3 ABG O2 Saturation ABG Base Excess ABG Hemoglobin ABG Oxyhemoglobin VBG pH Oxyhemoglobin Sodium Potassium Chloride Carbon Dioxide BUN Creatinine Glucose POC Glucose 187 H Lactic Acid Calcium AST Alkaline Phosphatase Lactate Dehydrogenase Total Creatine Kinase CK-MB (CK-2) C-Reactive Protein Total Protein Albumin Urine WBC (Auto) Urine Creatinine Urine Total Protein Coronavirus (PCR) Crossmatch Allied health notes reviewed: RT
--- NOTE | 2020-06-26 14:01 | Progress Note ---
Assessment and Plan --COVID-19 positive 05/28/2020 --Superficial left cephalic vein DVT/elevated D-dimers[COVID 19] Patient is on heparin drip from 05/29/20 D-dimers improved [phone] s/p heparin drip, Discussed with ID, treated with Eliquis 5 mg twice a day for 1 week[per ID] stop date 06/26/2020 -- Acute hypoxemic respiratory failure From COVID-19 viral infection extubated on , on high flow o2 -- s/p PEA Cardiac arrest POA Cardiology team on board Conservative management as per cardiology -- Acute metabolic encephalopathy, POA likely from sepsis and s/p cardiac arrest with possible anoxic injury -- Acute renal failure: likely ATN Cr slowly improving Avoid ACEI and other nephrotoxic medications Nephrology following -- Coronavirus infection with b/l PNA Completed remdesivir on 06/02 Completed dexamethasone - Last dose 06/07 ID recs appreciated. --Klebsiella pneumonia: Completed antibiotics --CHF (congestive heart failure) Cardiology following. Ef 45% -- Coffee ground emesis -Stress ulcers Possible stress ulcers, On PPI H/H again dropped - transfuse GI evaluation -- Hypertension; moderate control Continue amlodipine, coreg, clonidine and hydralazine --Mild LFT elevation: likely from COVID-19. -- DVT prophylaxis Eliquis, SCD to bilateral lower extremities while in bed -- Advance care planning Patient is full code. poor prognosis Patient is critically ill with multiple medical problems Poor prognosis Brief history: 64 YO Female with a medical history of HTN, Diastolic CHF, Pulmonary HTN, DM, Obesity Hypoventilation Syndrome presents to ED for evaluation of shortness of breath. As per staff, the EMS was notified for difficulty breathing. Upon arrival to the patient's home the patient was found to be in distress and was subsequently transported to [facility] for further evaluation and care. In route to [facility] the patient developed cardiac arrest and was treated in accordance with ACLS protocol with return of ROSC. Patient was seen and evaluated in the emergency department and was intubated and placed on ventilatory support. Patient admitted to ICU. Critical care team consulted in ED. She was found to have COVID-19 infection and was started on steroids and remdesivir. ID was consulted. Cardiology was consulted for her systolic heart failure and cardiac arrest. Patient completed treatment for COVID-19, then develop superimposed bacterial pneumonia with Klebsiella. She is now extubated, but remains confused and requiring high flow O2 and intermittent BiPAP. 06/01. Patient remains intubated and on ventilatory support today. Patient has multiple organ system failure and has poor prognosis. Patient did not experience significant medical decompensation overnight but no improvement with current therapy. 06/02. Remains intubated. her BP is elevated. Started on nicardipine drip. Cardiology following. 06/03-06/04. BP is better. Hb stable. Completed remdesivir. ID , Cardiology and Critical care team on board 06/05. Bump in creatinine. I/O reviewed. Nephrology consulted. 06/06. Has slight improvement in renal function. Nephrology on board. On SBT today. Vitals stable. 06/07. Stable renal function. No need for HD as per nephrology. She is making urine. Plan for SBT. 06/08. Off sedation and very lethargic. Her BUN is going up - effect of steroids vs GI bleed. Her hemoglobin remains stable. Will check stool guaiac. Nephrology is following. WBC bumped to 16 today. 06/09: remains intubated, wbc trended up, Cr slightly trending down. cont TF, wean off vent as tolerated. 06/10: Cr trending down, cont to wean off vent as tolerated. 06/10; Cr much improved, cont iv fluid, tolerating tube feeding. stopped vac, iv cefepime for total 10 days. 06/11; creatinine 1.5 today, sodium level has normalized. Continue tube feeding, continue cefepime for 10 days. Continue to wean off as tolerated. 06/12: planned for extubation today 06/13: extubated yesterday, now on Bipap 06/14: patient on Bipap, remains on TF, restraint. cont to follow clinically 06/15: patient on high flow O2,remains on TF, restraint. cont to follow clinically. transfer to [facility] 06/16: Patient remains on high flow O2, intermittently on BiPAP. Tolerating tube feeding. cont to monitor at IM 06/17; patient on BiPAP. Remains confused and on tube feeding. Continue to monitor at IMCU. Wean off O2 as tolerated. 06/18; patient feels slightly better on high flow oxygen, minimally communicative, stable to be transferred out of [facility] to telemetry 06/20; remains hypoxic on high flow oxygen, today noncommunicative sleeping all the time, vital signs noted 06/21; more alert and awake confused at times and pulling, restraint for safety, on high flow oxygen We will request physical therapy once more stable 06/22; PT unable to assess due to safety concerns, remains hypoxic on high flow oxygen, BiPAP at night. minimally communicative 06/23: Remains on high flow O2, order for speech eval, continue tube feeding. Creatinine noted to be elevated today -2.4, increase IV fluid hydration. 06/24: Kidney function started worsening 06/23 -likely from hypotension. patient had episodes of hypotension on 06/22. Kidney function is unchanged from yesterday. No further episodes of hypotension. Follow-up electrolytes and renal function. patient remains on high flow O2 06/25: patient on 15L o2 with n/c. on Bipap at night. follow renal function and follow bmp . Placement not possible as patient unfunded. wean off o2 as tolerated. 06/26: hb 6.9 today, transfuse one unit. wean off from O2 as tolerated. check stool for occult blood. consult GI if stool is positive for blood. Subjective Date of service: 06/26/20 Principal diagnosis: Ac hypoxemic resp failure; COVID-19; pneumonia; CHF; Pulm HTN; OHS; DM II Interval history: Patient seen and examined Vitals reviewed, confused Patient on high flow O2 Tolerating tube feeding Discussed with RN at the bedside Hb dropped. will plan for transfusion Objective - Exam Narrative Exam: General appearance: Present: mild distress, well-nourished, obese (Morbidly obese), other (On high flow oxygen) - EENT Eyes: Present: PERRL, EOM intact - Neck Neck: Present: supple, normal ROM - Respiratory Respiratory effort: normal Respiratory: bilateral: diminished, rhonchi, negative: rales, wheezing - Cardiovascular Rhythm: regular Heart Sounds: Present: S1 & S2 - Extremities Extremities: no ischemia, No edema - Abdominal General gastrointestinal: soft, non-tender, non-distended, normal bowel sounds - Integumentary Integumentary: Present: clear, warm - Psychiatric Psychiatric: other (Minimally communicative) - Neurologic Neurologic: other (Minimally communicative) - Constitutional Vitals: Vital Signs - 12hr 06/26/20 06/26/20 06/26/20 04:00 05:18 05:43 Temperature 99.0 F Pulse Rate 84 79 79 Respiratory 18 Rate Blood Pressure 136/51 136/51 O2 Sat by Pulse 100 Oximetry 06/26/20 06/26/20 06/26/20 10:00 10:08 10:09 Temperature Pulse Rate 79 79 Respiratory 20 Rate Blood Pressure 136/51 136/51 O2 Sat by Pulse 92 Oximetry 06/26/20 06/26/20 06/26/20 12:54 13:07 13:09 Temperature 99 F 99 F 98.6 F Pulse Rate 80 84 124 H Respiratory 20 20 20 Rate Blood Pressure 142/58 156/63 152/62 O2 Sat by Pulse Oximetry - Labs CBC & Chem 7: 06/27/20 05:00 06/27/20 05:00 Labs: Abnormal lab results 06/25/20 06/25/20 06/25/20 Range/Units 15:43 16:37 23:02 RBC (3.65-5.03) M/mm3 Hgb (10.1-14.3) gm/dl Hct (30.3-42.9) % RDW (13.2-15.2) % Lymph % (Auto) (13.4-35.0) % [place] % (Auto) (0.0-7.3) % Lymph # (1.2-5.4) K/mm3 Seg Neutrophils % (40.0-70.0) % BUN 71 H (7-17) mg/dL Creatinine 1.8 H (0.6-1.2) mg/dL Glucose 170 H (65-100) mg/dL POC Glucose 191 H 126 H (70-105) Calcium 8.2 L (8.4-10.2) mg/dL Crossmatch 06/26/20 06/26/20 06/26/20 Range/Units 06:34 06:34 09:27 RBC 2.41 L (3.65-5.03) M/mm3 Hgb 6.9 L (10.1-14.3) gm/dl Hct 21.5 L (30.3-42.9) % RDW 16.7 H (13.2-15.2) % Lymph % (Auto) 10.9 L (13.4-35.0) % [place] % (Auto) 9.6 H (0.0-7.3) % Lymph # 0.7 L (1.2-5.4) K/mm3 Seg Neutrophils % 75.4 H (40.0-70.0) % BUN 77 H (7-17) mg/dL Creatinine 1.9 H (0.6-1.2) mg/dL Glucose 190 H (65-100) mg/dL POC Glucose (70-105) Calcium (8.4-10.2) mg/dL Crossmatch See Detail 06/26/20 Range/Units 12:15 RBC (3.65-5.03) M/mm3 Hgb (10.1-14.3) gm/dl Hct (30.3-42.9) % RDW (13.2-15.2) % Lymph % (Auto) (13.4-35.0) % [place] % (Auto) (0.0-7.3) % Lymph # (1.2-5.4) K/mm3 Seg Neutrophils % (40.0-70.0) % BUN (7-17) mg/dL Creatinine (0.6-1.2) mg/dL Glucose (65-100) mg/dL POC Glucose 187 H (70-105) Calcium (8.4-10.2) mg/dL Crossmatch
[2020-06-26] MEDS ORDERED: FUROSEMIDE 40 MG/4 ML INJ IV ONE (15:01)
--- NOTE | 2020-06-26 17:45 | Event Note ---
Date: 06/26/20 Code blue called ACLS initiated, Pt found to have Asystolic Arrest with eventual return of perfusing cardiac rhythm. patient reintubated during code, transferred to ICU called Patient's Son Toño -[phone] Updated and informed that patient is very critical with very poor prognosis
--- NOTE | 2020-06-26 17:56 | Event Note ---
Code blue called. Pt found to have Asystolic Arrest. Pt treated IAW ACLS protocol with eventual return of perfusing cardiac rhythm. Pt transproted to ICU on Ventilatory support. Pulmonary team consulted, 65 minutes dedicated to critical care time.
[2020-06-26] MEDS ORDERED: NORepinephrine/NS 4 MG-250 ML 4 MG/250 ML BAG IV ONE (18:00)
--- NOTE | 2020-06-26 18:00 | Event Note ---
Date: 06/26/20 CODE JAH called. Arrives to the patient's room. CPR was initiated by nursing staff. There was issue with moving the bed away from the wall therefore the first attempt at intubation was using laryngoscope with a 7.5 ET tube at the side of the bed. We were able to angle the patient diagonally on the bed but the head of the bed was unable to be lower. Was unable to visualize cords during this attempt. Were able to use a glide scope which did arrive. Was able to get on top of the bed and attempt intubation of the patient. Patient was v vera edematous but eventually after 3 attempts with a glide scope were able to intubate the patient. Patient intubated with a 7 oh endotracheal tube. There was good CO2 change. Please see Dr. Motta's note regarding the code progress
[2020-06-26] MEDS ORDERED: PHENYLEPHRINE 100 MG in SODIUM CHLORIDE 0.9% 90 ML IV SCH (18:15)
--- NOTE | 2020-06-26 18:30 | Procedure Note ---
Date of procedure: 06/26/20 Pre-op diagnosis: Respiratory Failure Post-op diagnosis: same Procedure: Right IJ Central Line Placement A timeout was taken to verify the correct patient, correct procedure, and the correct operative site. The patient was prepped and draped in the usual sterile fashion. An ultrasound was used to identify the right internal jugular vein without difficulty. Local anesthesia was obtained with 1% lidocaine. The Seldinger technique was utilized to access the right internal jugular vein without difficulty. Under ultrasound guidance a seeker needle was advanced into the right internal jugular vein without difficulty. A guidewire was then advanced through the seeker needle into the right internal jugular vein. The seeker needle was then removed over the guidewire. A scalpel was used to incise the skin and a dilator was then passed over the guidewire and subsequently removed. A pre-flushed triple-lumen catheter was then advanced over the guidewire into the right internal jugular vein without difficulty. The guidewire was subsequently removed. All 3 ports flush and draw with ease. A postoperative chest x-ray was ordered which revealed the central line in the superior vena cava in good position without evidence of pneumothorax. Estimated blood loss minimal, complications none. Surgeon: SHERRIE DODD Condition: critical Disposition: ICU
--- NOTE | 2020-06-26 18:48 | XRay Report ---
CHEST - 1 VIEW INDICATION: line placement; cpr COMPARISON: 06/22/2020 FINDINGS: SUPPORT DEVICES: Right IJ CVL with tip grossly in the SVC on this rotated exam. Endotracheal tube is in place with tip along the lower margin of the clavicles. Dobbhoff tube has been removed. HEART: Stable cardiomediastinal silhouette. LUNGS/PLEURA: Persistent patchy bilateral airspace disease with a central predominance. There appear to be small bilateral layering effusions. ADDITIONAL FINDINGS: None. IMPRESSION: 1. Support devices as above. 2. Patchy bilateral airspace disease in the lungs with small bilateral layering effusions. Signer Name: Pako Reynolds MD Signed: 06/26/2020 6:43 PM Workstation Name: [id number]
[2020-06-26] MEDS ORDERED: VASOPRESSIN 20 UNIT in SODIUM CHLORIDE 0.9% 100 ML IV SCH (19:00)
[2020-06-26] MEDS ORDERED: NORepinephrine/NS 4 MG-250 ML 4 MG/250 ML BAG IV SCH (19:00)
[2020-06-26 19:13] LABS: ABG Base Excess -1.8 mmol/L (-2.0-3.0); ABG HCO3 25.3 mmol/L (20.0-26.0); ABG Methemoglobin 0.7 % (0.0-1.5); ABG Oxygen Saturation 97.8 % (95.0-99.0); ABG PCO2 53.1 mm Hg; ABG PH 7.296 pH Units (7.350-7.450); ABG PO2 116.5 mm Hg (80.0-90.0)
[2020-06-26 20:33] LABS: Hematocrit 25.9 % (30.3-42.9); Hemoglobin 8.2 gm/dl (10.1-14.3); Mean Corpuscular HGB Conc 32 % (30-34); Mean Corpuscular Volume 91 fl (79-97); Platelet Count 393 K/mm3 (140-440); Red Blood Count 2.87 M/mm3 (3.65-5.03); Red Cell Distribution Width 17.8 % (13.2-15.2)
[2020-06-26 20:56] LABS: Calcium 8.3 mg/dL (8.4-10.2)
[2020-06-26] MEDS: INSULIN GLARGINE 100 UNITS/ML SUB-Q SCH (21:07)
[2020-06-26] MEDS: HEPARIN 5,000 UNIT/1 ML VIAL SUB-Q SCH (21:14)
[2020-06-26 21:33] LABS: RBC Morphology Normal; Total Cells Counted 100
--- NOTE | 2020-06-27 05:00 | XRay Report ---
ABDOMEN 1 VIEW(S) 06/27/2020 3:27 AM INDICATION / CLINICAL INFORMATION: Dobhoff placement/verification. COMPARISON: 06/25/2020 FINDINGS: The tip of a weighted feeding tube projects over the distal gastric antrum portion of stomach, unchan ged Signer Name: Chema Corrigan MD Signed: 06/27/2020 4:56 AM Workstation Name: [id number]
[2020-06-27 05:19] LABS: ABG Base Excess 3.7 mmol/L (-2.0-3.0); ABG HCO3 28.4 mmol/L (20.0-26.0); ABG Methemoglobin 0.6 % (0.0-1.5); ABG Oxygen Saturation 99.3 % (95.0-99.0); ABG PCO2 43.9 mm Hg; ABG PH 7.429 pH Units (7.350-7.450); ABG PO2 200.5 mm Hg (80.0-90.0)
[2020-06-27 05:23] LABS: Basophils % (Auto) 0.5 % (0.0-1.8); Eosinophils # (Auto) 0.1 K/mm3 (0.0-0.4); Eosinophils % (Auto) 0.9 % (0.0-4.3); Hematocrit 24.3 % (30.3-42.9); Hemoglobin 7.9 gm/dl (10.1-14.3); Lymphocytes # (Auto) 0.7 K/mm3 (1.2-5.4); Lymphocytes % (Auto) 8.5 % (13.4-35.0); Mean Corpuscular HGB Conc 33 % (30-34); Mean Corpuscular Volume 89 fl (79-97); Monocytes % (Auto) 12.6 % (0.0-7.3); Platelet Count 429 K/mm3 (140-440); Red Blood Count 2.75 M/mm3 (3.65-5.03); Red Cell Distribution Width 17.1 % (13.2-15.2)
[2020-06-27 05:35] LABS: Calcium 7.9 mg/dL (8.4-10.2)
[2020-06-27] MEDS: INSULIN LISPRO 100 UNIT/ML VIAL 3 mL SUB-Q SCH ×2 (05:53)
--- NOTE | 2020-06-27 08:02 | Progress Note ---
Assessment and Plan Cardiopulmoanry arrest 06/26/2020 with ROSC Acute hypoxemic respiratory failure , extubated now re-intubated Anemia s/p PRBC Severe COVID infection Multifocal pneumonia Morbid obesity Acute toxic metabolic encephalopathy AVANI secondary to COVID/vasomotor nephropathy Bilateral pulmonary edema. Bilateral pleural effusions. History of congestive heart failure. History of pulmonary hypertension. History of hypertension. Diabetes. Obesity hypoventilation syndrome. Oropharyngeal dysphagia. - VAP bundle addressed -Aspiration precautions, HOB >40 -lung protective strategies-ARDS. net - continue bronchodilators with pulmonary hygiene per RT - wean per pulmonary driven protocols otherwise - continue to avoid benzodiazepines, reduce the possibility of delirium - prn analgesia per CPOT score - Continue to wean supplemental oxygen for target O2 sats > 92% -Hold all sedation for now to allow for assessment of neurologic status post cardiopulmonary arrest - conservative fluid management measures as tolerated by hemodynamics and renal function - Bronchodilators with pulmonary hygiene per RT - Accuchecks with glycemic control per SSI (While critically ill target blood glucose of 140-180 mg/dL; avoid hypoglycemia) - Maintenance of sleep-wake cycle, avoid delirium - Avoid nephrotoxins, closely monitor renal function, dose all medications for renal function - Aspiration precautions, HOB >40 - Stress ulcer prophylaxis -Famotidine - VTE prophylaxis on adjust based on D-dimer levels - Mobility protocol, off loading and skin assessment for pressure ulcer prevention - Monitor hemodynamics closely - Supportive transfusions as indicated to keep HgB >7g/dL COVID SPECIFIC INTERVENTIONS -Airborne, contact isolation for COVID per facility protocols - s/p Remdesivir -IV steroids-Dexamethasone -Trend d-dimer,and other inflammatory markers per facility protocol -Convalescent plasma therapy per facility protocol -Continue all supportive care Discussed with the ICU team-RTRN, Life threatening condition- COVID 19 ARDS acute hypoxemic respiratory failure on MVS Mortality/Morbidity- High Complexity of medical decision making- High CONDITION: CRITICAL PROGNOSIS: GUARDED CODE STATUS: FULL CODE The high probability of a clinically significant, sudden or life-threatening deterioration of the [respiratory & neurology, renal ] system(s) required my full and direct attention, intervention and personal management. The aggregate critical care time was [34] minutes without overlap. Time includes spent on; [x] Data Review and interpretation [x] Patient assessment and monitoring of vital signs [x] Documentation [x] Medication orders and management Subjective Date of service: 06/27/20 Principal diagnosis: Ac hypoxemic resp failure; COVID-19; pneumonia; CHF; Pulm HTN; OHS; DM II Interval history: Patient is seen today for: Ac hypoxemic resp failure; Coronavirus-19 infection; pneumonia; Pulmonary edema; Bilateral pleural effusions; CHF; Morbid obesity; pulmonary hypertension; OHS; DM II Seen and examined at bedside; 24hour events reviewed; nursing and respiratory care staff consulted; events late afternoon yesterday noted. Asystole- CPR with ROSC. Orally intubated with RIJ CVC placed. Transferred to the ICU Objective Vital Signs - 12hr 06/26/20 06/26/20 06/26/20 20:01 20:15 20:31 Temperature Pulse Rate 66 67 67 Respiratory 21 20 20 Rate Blood Pressure 197/77 176/92 O2 Sat by Pulse 100 100 99 Oximetry 06/26/20 06/26/20 06/26/20 20:45 20:51 21:01 Temperature Pulse Rate 69 68 78 Respiratory 20 20 13 Rate Blood Pressure 186/67 195/119 O2 Sat by Pulse 100 100 99 Oximetry 06/26/20 06/26/20 06/26/20 21:02 21:15 21:27 Temperature Pulse Rate 71 70 72 Respiratory 20 Rate Blood Pressure 195/119 189/67 O2 Sat by Pulse 100 100 Oximetry 06/26/20 06/26/20 06/26/20 21:31 21:45 22:01 Temperature Pulse Rate 72 74 70 Respiratory 15 19 20 Rate Blood Pressure 200/80 190/123 185/83 O2 Sat by Pulse 98 99 97 Oximetry 06/26/20 06/26/20 06/26/20 22:15 22:30 22:45 Temperature Pulse Rate 73 74 75 Respiratory 20 19 20 Rate Blood Pressure 150/60 153/58 155/62 O2 Sat by Pulse 98 98 98 Oximetry 06/26/20 06/26/20 06/26/20 23:00 23:15 23:30 Temperature Pulse Rate 77 75 74 Respiratory 13 19 16 Rate Blood Pressure 144/60 158/65 159/63 O2 Sat by Pulse 98 98 98 Oximetry 06/26/20 06/26/20 06/27/20 23:35 23:45 00:00 Temperature 98.9 F Pulse Rate 74 74 Respiratory 20 20 Rate Blood Pressure 154/63 153/65 O2 Sat by Pulse 98 98 Oximetry 06/27/20 06/27/20 06/27/20 00:14 00:15 00:30 Temperature Pulse Rate 74 74 72 Respiratory 20 19 Rate Blood Pressure 153/65 153/65 152/63 O2 Sat by Pulse 100 98 98 Oximetry 06/27/20 06/27/20 06/27/20 00:45 01:01 01:15 Temperature Pulse Rate 74 73 74 Respiratory 21 19 20 Rate Blood Pressure 158/63 161/63 O2 Sat by Pulse 98 98 100 Oximetry 06/27/20 06/27/20 06/27/20 01:30 01:45 02:00 Temperature Pulse Rate 72 73 79 Respiratory 20 20 17 Rate Blood Pressure 154/61 154/63 157/81 O2 Sat by Pulse 98 98 98 Oximetry 06/27/20 06/27/20 06/27/20 02:15 02:30 02:45 Temperature Pulse Rate 75 77 74 Respiratory 20 17 20 Rate Blood Pressure 163/62 156/66 156/60 O2 Sat by Pulse 98 98 98 Oximetry 06/27/20 06/27/20 06/27/20 03:01 03:15 03:30 Temperature Pulse Rate 77 79 78 Respiratory 20 19 19 Rate Blood Pressure 155/59 153/64 153/61 O2 Sat by Pulse 96 96 96 Oximetry 06/27/20 06/27/20 06/27/20 03:34 03:45 04:00 Temperature 98.6 F Pulse Rate 87 83 Respiratory 18 20 Rate Blood Pressure 153/61 155/63 O2 Sat by Pulse 100 96 Oximetry 06/27/20 06/27/20 06/27/20 04:15 04:30 04:45 Temperature Pulse Rate 87 86 83 Respiratory 23 20 18 Rate Blood Pressure 153/61 165/103 168/66 O2 Sat by Pulse 100 98 98 Oximetry 06/27/20 06/27/20 06/27/20 05:00 05:06 05:15 Temperature Pulse Rate 83 86 84 Respiratory 20 14 Rate Blood Pressure 168/64 168/67 168/64 O2 Sat by Pulse 98 100 100 Oximetry 06/27/20 06/27/20 06/27/20 05:30 05:45 06:00 Temperature Pulse Rate 85 83 83 Respiratory 18 20 18 Rate Blood Pressure 158/61 168/64 153/59 O2 Sat by Pulse 97 100 94 Oximetry 06/27/20 06/27/20 06/27/20 06:15 06:31 06:45 Temperature Pulse Rate 85 84 87 Respiratory 19 19 21 Rate Blood Pressure 158/61 153/60 O2 Sat by Pulse 96 94 95 Oximetry Constitutional: lethargic, other (elderly looking obese female orally intubated 7.5 cm at 22cm at the lip) Eyes: non-icteric ENT: oropharynx dry Neck: supple, no lymphadenopathy, no JVD, other (large neck circumference) Effort: normal (riding set ventialtor rate) Ascultation: Bilateral: clear, diminished breath sounds, rales, rhonchi (scant) Percussion: Bilateral: not dull Cardiovascular: regular rate and rhythm, other (S1,S2) Gastrointestinal: normoactive bowel sounds, soft, non-tender, non-distended Integumentary: normal Extremities: no cyanosis, no edema, pink and warm, pulses normal, no ischemia or petechiae Neurologic: pupils equal and round, unable to assess Psychiatric: other (unable to assess re: AMS) CBC and BMP: 06/29/20 04:38 06/29/20 04:38 ABG, PT/INR, D-dimer: ABG ABG pH 7.429 pH Units (7.350-7.450) 06/27/20 04:29 POC ABG pCO2 54.7 mmHg (32.0-48.0) H 06/23/20 12:34 ABG pCO2 43.9 mm Hg 06/27/20 04:29 POC ABG pO2 68.8 mmHg (83-108) L 06/23/20 12:34 ABG pO2 200.5 mm Hg (80.0-90.0) H 06/27/20 04:29 POC ABG HCO3 30.2 06/23/20 12:34 ABG O2 Saturation 99.3 % (95.0-99.0) H 06/27/20 04:29 PT/INR, D-dimer PT 14.2 Sec. (12.2-14.9) 05/29/20 15:10 INR 1.08 (0.87-1.13) 05/29/20 15:10 D-Dimer 414.52 ng/mlDDU (0-234) H 06/04/20 04:19 Abnormal lab findings: Abnormal Labs 05/28/20 05/28/20 05/28/20 13:29 13:47 13:47 WBC RBC Hgb Hct RDW 15.3 H Lymph % (Auto) [place] % (Auto) Eos % (Auto) Lymph # [place] # Seg Neutrophils % Seg Neuts % (Manual) Lymphocytes % (Manual) Seg Neutrophils # Seg Neutrophils # Man Lymphocytes # (Manual) Monocytes # (Manual) D-Dimer Heparin Anti-Xa Level ABG pH POC ABG pCO2 POC ABG pO2 ABG pO2 ABG HCO3 ABG O2 Saturation ABG Base Excess ABG Hemoglobin ABG Oxyhemoglobin VBG pH Oxyhemoglobin Sodium Potassium 6.6 H* Chloride 109.2 H Carbon Dioxide 17 L BUN 29 H Creatinine 1.3 H Glucose 265 H POC Glucose 248 H Lactic Acid Calcium 8.1 L AST 63 H Alkaline Phosphatase Lactate Dehydrogenase Total Creatine Kinase 301 H CK-MB (CK-2) 4.3 H C-Reactive Protein Total Protein 5.4 L Albumin 2.6 L Urine WBC (Auto) Urine Creatinine Urine Total Protein Coronavirus (PCR) Crossmatch 05/28/20 05/28/20 05/28/20 13:47 13:47 14:46 WBC RBC Hgb Hct RDW Lymph % (Auto) [place] % (Auto) Eos % (Auto) Lymph # [place] # Seg Neutrophils % Seg Neuts % (Manual) Lymphocytes % (Manual) Seg Neutrophils # Seg Neutrophils # Man Lymphocytes # (Manual) Monocytes # (Manual) D-Dimer Heparin Anti-Xa Level ABG pH POC ABG pCO2 POC ABG pO2 ABG pO2 ABG HCO3 ABG O2 Saturation ABG Base Excess ABG Hemoglobin ABG Oxyhemoglobin VBG pH 7.152 L* Oxyhemoglobin Sodium Potassium 7.2 H* Chloride Carbon Dioxide BUN Creatinine Glucose POC Glucose Lactic Acid 3.40 H* Calcium AST Alkaline Phosphatase Lactate Dehydrogenase Total Creatine Kinase CK-MB (CK-2) C-Reactive Protein Total Protein Albumin Urine WBC (Auto) Urine Creatinine Urine Total Protein Coronavirus (PCR) Crossmatch 05/28/20 05/28/20 05/28/20 15:33 15:33 15:51 WBC RBC Hgb Hct RDW Lymph % (Auto) [place] % (Auto) Eos % (Auto) Lymph # [place] # Seg Neutrophils % Seg Neuts % (Manual) Lymphocytes % (Manual) Seg Neutrophils # Seg Neutrophils # Man Lymphocytes # (Manual) Monocytes # (Manual) D-Dimer 8780.43 H Heparin Anti-Xa Level ABG pH 7.284 L POC ABG pCO2 POC ABG pO2 ABG pO2 273.0 H ABG HCO3 ABG O2 Saturation 99.4 H ABG Base Excess -6.1 L ABG Hemoglobin 17.2 H ABG Oxyhemoglobin VBG pH Oxyhemoglobin Sodium Potassium Chloride Carbon Dioxide BUN Creatinine Glucose 152 H POC Glucose Lactic Acid Calcium AST Alkaline Phosphatase Lactate Dehydrogenase 365 H Total Creatine Kinase CK-MB (CK-2) C-Reactive Protein Total Protein Albumin Urine WBC (Auto) Urine Creatinine Urine Total Protein Coronavirus (PCR) Crossmatch 05/28/20 05/28/20 05/28/20 16:30 20:41 23:20 WBC RBC Hgb Hct RDW Lymph % (Auto) [place] % (Auto) Eos % (Auto) Lymph # [place] # Seg Neutrophils % Seg Neuts % (Manual) Lymphocytes % (Manual) Seg Neutrophils # Seg Neutrophils # Man Lymphocytes # (Manual) Monocytes # (Manual) D-Dimer Heparin Anti-Xa Level ABG pH POC ABG pCO2 POC ABG pO2 ABG pO2 ABG HCO3 ABG O2 Saturation ABG Base Excess ABG Hemoglobin ABG Oxyhemoglobin VBG pH Oxyhemoglobin Sodium Potassium Chloride Carbon Dioxide BUN Creatinine Glucose POC Glucose 225 H 224 H Lactic Acid Calcium AST Alkaline Phosphatase Lactate Dehydrogenase Total Creatine Kinase CK-MB (CK-2) C-Reactive Protein Total Protein Albumin Urine WBC (Auto) 17.0 H Urine Creatinine Urine Total Protein Coronavirus (PCR) Crossmatch 05/28/20 05/29/20 05/29/20 Unknown 04:35 04:43 WBC RBC 3.48 L Hgb 9.8 L Hct 29.4 L RDW 16.0 H Lymph % (Auto) 7.4 L [place] % (Auto) Eos % (Auto) Lymph # 0.7 L [place] # Seg Neutrophils % 89.1 H Seg Neuts % (Manual) Lymphocytes % (Manual) Seg Neutrophils # 8.1 H Seg Neutrophils # Man Lymphocytes # (Manual) Monocytes # (Manual) D-Dimer Heparin Anti-Xa Level ABG pH POC ABG pCO2 POC ABG pO2 ABG pO2 ABG HCO3 19.3 L ABG O2 Saturation ABG Base Excess -4.5 L ABG Hemoglobin 9.7 L ABG Oxyhemoglobin VBG pH Oxyhemoglobin Sodium Potassium Chloride Carbon Dioxide BUN Creatinine Glucose POC Glucose Lactic Acid Calcium AST Alkaline Phosphatase Lactate Dehydrogenase Total Creatine Kinase CK-MB (CK-2) C-Reactive Protein Total Protein Albumin Urine WBC (Auto) Urine Creatinine Urine Total Protein Coronavirus (PCR) Positive A Crossmatch 05/29/20 05/29/20 05/29/20 04:43 15:10 17:17 WBC RBC Hgb 9.3 L Hct 28.7 L RDW Lymph % (Auto) [place] % (Auto) Eos % (Auto) Lymph # [place] # Seg Neutrophils % Seg Neuts % (Manual) Lymphocytes % (Manual) Seg Neutrophils # Seg Neutrophils # Man Lymphocytes # (Manual) Monocytes # (Manual) D-Dimer Heparin Anti-Xa Level ABG pH POC ABG pCO2 POC ABG pO2 ABG pO2 ABG HCO3 ABG O2 Saturation ABG Base Excess ABG Hemoglobin ABG Oxyhemoglobin VBG pH Oxyhemoglobin Sodium Potassium Chloride 110.2 H Carbon Dioxide 18 L BUN 32 H Creatinine 1.4 H Glucose 180 H POC Glucose 147 H Lactic Acid Calcium AST Alkaline Phosphatase Lactate Dehydrogenase Total Creatine Kinase CK-MB (CK-2) C-Reactive Protein Total Protein Albumin Urine WBC (Auto) Urine Creatinine Urine Total Protein Coronavirus (PCR) Crossmatch 05/30/20 05/30/20 05/30/20 00:08 00:12 04:15 WBC RBC Hgb Hct RDW Lymph % (Auto) [place] % (Auto) Eos % (Auto) Lymph # [place] # Seg Neutrophils % Seg Neuts % (Manual) Lymphocytes % (Manual) Seg Neutrophils # Seg Neutrophils # Man Lymphocytes # (Manual) Monocytes # (Manual) D-Dimer Heparin Anti-Xa Level 0.71 H ABG pH 7.460 H POC ABG pCO2 POC ABG pO2 ABG pO2 106.0 H ABG HCO3 18.9 L ABG O2 Saturation ABG Base Excess -4.4 L ABG Hemoglobin 6.8 L ABG Oxyhemoglobin VBG pH Oxyhemoglobin Sodium Potassium Chloride Carbon Dioxide BUN Creatinine Glucose POC Glucose 195 H Lactic Acid Calcium AST Alkaline Phosphatase Lactate Dehydrogenase Total Creatine Kinase CK-MB (CK-2) C-Reactive Protein Total Protein Albumin Urine WBC (Auto) Urine Creatinine Urine Total Protein Coronavirus (PCR) Crossmatch 05/30/20 05/30/20 05/30/20 06:07 08:37 12:33 WBC RBC Hgb Hct RDW Lymph % (Auto) [place] % (Auto) Eos % (Auto) Lymph # [place] # Seg Neutrophils % Seg Neuts % (Manual) Lymphocytes % (Manual) Seg Neutrophils # Seg Neutrophils # Man Lymphocytes # (Manual) Monocytes # (Manual) D-Dimer Heparin Anti-Xa Level 0.85 H ABG pH POC ABG pCO2 POC ABG pO2 ABG pO2 ABG HCO3 ABG O2 Saturation ABG Base Excess ABG Hemoglobin ABG Oxyhemoglobin VBG pH Oxyhemoglobin Sodium Potassium Chloride Carbon Dioxide BUN Creatinine Glucose POC Glucose 182 H 187 H Lactic Acid Calcium AST Alkaline Phosphatase Lactate Dehydrogenase Total Creatine Kinase CK-MB (CK-2) C-Reactive Protein Total Protein Albumin Urine WBC (Auto) Urine Creatinine Urine Total Protein Coronavirus (PCR) Crossmatch 05/30/20 05/30/20 05/30/20 15:58 17:57 23:36 WBC RBC Hgb Hct RDW Lymph % (Auto) [place] % (Auto) Eos % (Auto) Lymph # [place] # Seg Neutrophils % Seg Neuts % (Manual) Lymphocytes % (Manual) Seg Neutrophils # Seg Neutrophils # Man Lymphocytes # (Manual) Monocytes # (Manual) D-Dimer Heparin Anti-Xa Level 1.03 H ABG pH POC ABG pCO2 POC ABG pO2 ABG pO2 ABG HCO3 ABG O2 Saturation ABG Base Excess ABG Hemoglobin ABG Oxyhemoglobin VBG pH Oxyhemoglobin Sodium Potassium Chloride Carbon Dioxide BUN Creatinine Glucose POC Glucose 208 H 185 H Lactic Acid Calcium AST Alkaline Phosphatase Lactate Dehydrogenase Total Creatine Kinase CK-MB (CK-2) C-Reactive Protein Total Protein Albumin Urine WBC (Auto) Urine Creatinine Urine Total Protein Coronavirus (PCR) Crossmatch 05/31/20 05/31/20 05/31/20 02:16 03:55 06:16 WBC RBC Hgb 9.2 L Hct 27.5 L RDW Lymph % (Auto) [place] % (Auto) Eos % (Auto) Lymph # [place] # Seg Neutrophils % Seg Neuts % (Manual) Lymphocytes % (Manual) Seg Neutrophils # Seg Neutrophils # Man Lymphocytes # (Manual) Monocytes # (Manual) D-Dimer Heparin Anti-Xa Level ABG pH POC ABG pCO2 POC ABG pO2 ABG pO2 94.7 H ABG HCO3 18.6 L ABG O2 Saturation ABG Base Excess -5.5 L ABG Hemoglobin 7.9 L ABG Oxyhemoglobin VBG pH Oxyhemoglobin Sodium Potassium Chloride Carbon Dioxide BUN Creatinine Glucose POC Glucose 160 H Lactic Acid Calcium AST Alkaline Phosphatase Lactate Dehydrogenase Total Creatine Kinase CK-MB (CK-2) C-Reactive Protein Total Protein Albumin Urine WBC (Auto) Urine Creatinine Urine Total Protein Coronavirus (PCR) Crossmatch 05/31/20 05/31/20 05/31/20 12:20 13:03 18:13 WBC RBC Hgb Hct RDW Lymph % (Auto) [place] % (Auto) Eos % (Auto) Lymph # [place] # Seg Neutrophils % Seg Neuts % (Manual) Lymphocytes % (Manual) Seg Neutrophils # Seg Neutrophils # Man Lymphocytes # (Manual) Monocytes # (Manual) D-Dimer Heparin Anti-Xa Level ABG pH POC ABG pCO2 POC ABG pO2 ABG pO2 ABG HCO3 ABG O2 Saturation ABG Base Excess ABG Hemoglobin ABG Oxyhemoglobin VBG pH Oxyhemoglobin Sodium Potassium Chloride Carbon Dioxide 18 L BUN 48 H Creatinine 1.6 H Glucose 115 H POC Glucose 128 H 159 H Lactic Acid Calcium 8.3 L AST Alkaline Phosphatase Lactate Dehydrogenase Total Creatine Kinase CK-MB (CK-2) C-Reactive Protein Total Protein 5.4 L Albumin 2.4 L Urine WBC (Auto) Urine Creatinine Urine Total Protein Coronavirus (PCR) Crossmatch 05/31/20 06/01/20 06/01/20 23:51 04:00 05:48 WBC RBC Hgb Hct RDW Lymph % (Auto) [place] % (Auto) Eos % (Auto) Lymph # [place] # Seg Neutrophils % Seg Neuts % (Manual) Lymphocytes % (Manual) Seg Neutrophils # Seg Neutrophils # Man Lymphocytes # (Manual) Monocytes # (Manual) D-Dimer Heparin Anti-Xa Level ABG pH POC ABG pCO2 POC ABG pO2 ABG pO2 109.8 H ABG HCO3 18.8 L ABG O2 Saturation ABG Base Excess -5.9 L ABG Hemoglobin 7.8 L ABG Oxyhemoglobin VBG pH Oxyhemoglobin Sodium Potassium Chloride Carbon Dioxide BUN Creatinine Glucose POC Glucose 171 H 133 H Lactic Acid Calcium AST Alkaline Phosphatase Lactate Dehydrogenase Total Creatine Kinase CK-MB (CK-2) C-Reactive Protein Total Protein Albumin Urine WBC (Auto) Urine Creatinine Urine Total Protein Coronavirus (PCR) Crossmatch 06/01/20 06/01/20 06/02/20 12:28 17:29 00:08 WBC RBC Hgb Hct RDW Lymph % (Auto) [place] % (Auto) Eos % (Auto) Lymph # [place] # Seg Neutrophils % Seg Neuts % (Manual) Lymphocytes % (Manual) Seg Neutrophils # Seg Neutrophils # Man Lymphocytes # (Manual) Monocytes # (Manual) D-Dimer Heparin Anti-Xa Level ABG pH POC ABG pCO2 POC ABG pO2 ABG pO2 ABG HCO3 ABG O2 Saturation ABG Base Excess ABG Hemoglobin ABG Oxyhemoglobin VBG pH Oxyhemoglobin Sodium Potassium Chloride Carbon Dioxide BUN Creatinine Glucose POC Glucose 199 H 209 H 162 H Lactic Acid Calcium AST Alkaline Phosphatase Lactate Dehydrogenase Total Creatine Kinase CK-MB (CK-2) C-Reactive Protein Total Protein Albumin Urine WBC (Auto) Urine Creatinine Urine Total Protein Coronavirus (PCR) Crossmatch 06/02/20 06/02/20 06/02/20 04:20 04:20 04:44 WBC RBC Hgb 10.0 L Hct RDW Lymph % (Auto) [place] % (Auto) Eos % (Auto) Lymph # [place] # Seg Neutrophils % Seg Neuts % (Manual) Lymphocytes % (Manual) Seg Neutrophils # Seg Neutrophils # Man Lymphocytes # (Manual) Monocytes # (Manual) D-Dimer Heparin Anti-Xa Level 0.10 L ABG pH POC ABG pCO2 POC ABG pO2 ABG pO2 150.6 H ABG HCO3 ABG O2 Saturation ABG Base Excess -4.1 L ABG Hemoglobin 11.8 L ABG Oxyhemoglobin VBG pH Oxyhemoglobin Sodium Potassium Chloride Carbon Dioxide BUN Creatinine Glucose POC Glucose Lactic Acid Calcium AST Alkaline Phosphatase Lactate Dehydrogenase Total Creatine Kinase CK-MB (CK-2) C-Reactive Protein Total Protein Albumin Urine WBC (Auto) Urine Creatinine Urine Total Protein Coronavirus (PCR) Crossmatch 06/02/20 06/02/20 06/02/20 05:53 12:04 13:49 WBC RBC Hgb Hct RDW Lymph % (Auto) [place] % (Auto) Eos % (Auto) Lymph # [place] # Seg Neutrophils % Seg Neuts % (Manual) Lymphocytes % (Manual) Seg Neutrophils # Seg Neutrophils # Man Lymphocytes # (Manual) Monocytes # (Manual) D-Dimer Heparin Anti-Xa Level 0.28 L ABG pH POC ABG pCO2 POC ABG pO2 ABG pO2 ABG HCO3 ABG O2 Saturation ABG Base Excess ABG Hemoglobin ABG Oxyhemoglobin VBG pH Oxyhemoglobin Sodium Potassium Chloride Carbon Dioxide BUN Creatinine Glucose POC Glucose 149 H 220 H Lactic Acid Calcium AST Alkaline Phosphatase Lactate Dehydrogenase Total Creatine Kinase CK-MB (CK-2) C-Reactive Protein Total Protein Albumin Urine WBC (Auto) Urine Creatinine Urine Total Protein Coronavirus (PCR) Crossmatch 06/02/20 06/02/20 06/03/20 13:49 18:31 00:42 WBC RBC Hgb Hct RDW Lymph % (Auto) [place] % (Auto) Eos % (Auto) Lymph # [place] # Seg Neutrophils % Seg Neuts % (Manual) Lymphocytes % (Manual) Seg Neutrophils # Seg Neutrophils # Man Lymphocytes # (Manual) Monocytes # (Manual) D-Dimer 769.68 H Heparin Anti-Xa Level ABG pH POC ABG pCO2 POC ABG pO2 ABG pO2 ABG HCO3 ABG O2 Saturation ABG Base Excess ABG Hemoglobin ABG Oxyhemoglobin VBG pH Oxyhemoglobin Sodium Potassium Chloride Carbon Dioxide BUN Creatinine Glucose POC Glucose 225 H 212 H Lactic Acid Calcium AST Alkaline Phosphatase Lactate Dehydrogenase Total Creatine Kinase CK-MB (CK-2) C-Reactive Protein Total Protein Albumin Urine WBC (Auto) Urine Creatinine Urine Total Protein Coronavirus (PCR) Crossmatch 06/03/20 06/03/20 06/03/20 05:16 05:16 05:25 WBC 11.4 H RBC Hgb Hct RDW 16.4 H Lymph % (Auto) [place] % (Auto) Eos % (Auto) Lymph # [place] # Seg Neutrophils % Seg Neuts % (Manual) Lymphocytes % (Manual) Seg Neutrophils # Seg Neutrophils # Man Lymphocytes # (Manual) Monocytes # (Manual) D-Dimer Heparin Anti-Xa Level ABG pH POC ABG pCO2 POC ABG pO2 ABG pO2 160.9 H ABG HCO3 19.4 L ABG O2 Saturation ABG Base Excess -4.9 L ABG Hemoglobin 7.0 L ABG Oxyhemoglobin VBG pH Oxyhemoglobin Sodium Potassium Chloride Carbon Dioxide 18 L BUN 65 H Creatinine 2.0 H Glucose 175 H POC Glucose Lactic Acid Calcium 8.0 L AST Alkaline Phosphatase Lactate Dehydrogenase Total Creatine Kinase CK-MB (CK-2) C-Reactive Protein Total Protein 5.5 L Albumin 2.2 L Urine WBC (Auto) Urine Creatinine Urine Total Protein Coronavirus (PCR) Crossmatch 06/03/20 06/03/20 06/03/20 06:07 11:58 18:24 WBC RBC Hgb Hct RDW Lymph % (Auto) [place] % (Auto) Eos % (Auto) Lymph # [place] # Seg Neutrophils % Seg Neuts % (Manual) Lymphocytes % (Manual) Seg Neutrophils # Seg Neutrophils # Man Lymphocytes # (Manual) Monocytes # (Manual) D-Dimer Heparin Anti-Xa Level ABG pH POC ABG pCO2 POC ABG pO2 ABG pO2 ABG HCO3 ABG O2 Saturation ABG Base Excess ABG Hemoglobin ABG Oxyhemoglobin VBG pH Oxyhemoglobin Sodium Potassium Chloride Carbon Dioxide BUN Creatinine Glucose POC Glucose 177 H 163 H 211 H Lactic Acid Calcium AST Alkaline Phosphatase Lactate Dehydrogenase Total Creatine Kinase CK-MB (CK-2) C-Reactive Protein Total Protein Albumin Urine WBC (Auto) Urine Creatinine Urine Total Protein Coronavirus (PCR) Crossmatch 06/03/20 06/03/20 06/04/20 21:50 Unknown 00:26 WBC RBC Hgb Hct RDW Lymph % (Auto) [place] % (Auto) Eos % (Auto) Lymph # [place] # Seg Neutrophils % Seg Neuts % (Manual) Lymphocytes % (Manual) Seg Neutrophils # Seg Neutrophils # Man Lymphocytes # (Manual) Monocytes # (Manual) D-Dimer Heparin Anti-Xa Level ABG pH POC ABG pCO2 POC ABG pO2 ABG pO2 ABG HCO3 ABG O2 Saturation ABG Base Excess ABG Hemoglobin ABG Oxyhemoglobin VBG pH Oxyhemoglobin Sodium 135 L Potassium Chloride Carbon Dioxide 18 L BUN Creatinine Glucose POC Glucose 241 H Lactic Acid Calcium AST Alkaline Phosphatase Lactate Dehydrogenase Total Creatine Kinase CK-MB (CK-2) C-Reactive Protein Total Protein Albumin Urine WBC (Auto) 11.0 H Urine Creatinine Urine Total Protein Coronavirus (PCR) Crossmatch 06/04/20 06/04/20 06/04/20 03:35 04:19 04:19 WBC RBC 3.15 L Hgb 8.9 L Hct 26.8 L D RDW 15.9 H Lymph % (Auto) 6.0 L [place] % (Auto) Eos % (Auto) Lymph # 0.6 L [place] # Seg Neutrophils % 86.6 H Seg Neuts % (Manual) Lymphocytes % (Manual) Seg Neutrophils # 9.1 H Seg Neutrophils # Man Lymphocytes # (Manual) Monocytes # (Manual) D-Dimer Heparin Anti-Xa Level ABG pH 7.331 L POC ABG pCO2 POC ABG pO2 ABG pO2 ABG HCO3 ABG O2 Saturation ABG Base Excess -4.7 L ABG Hemoglobin 11.0 L ABG Oxyhemoglobin VBG pH Oxyhemoglobin 93.9 L Sodium 136 L Potassium Chloride Carbon Dioxide 20 L BUN 73 H Creatinine 2.0 H Glucose 192 H POC Glucose Lactic Acid Calcium 8.0 L AST Alkaline Phosphatase Lactate Dehydrogenase 271 H Total Creatine Kinase CK-MB (CK-2) C-Reactive Protein 2.20 H Total Protein 5.0 L Albumin 2.0 L Urine WBC (Auto) Urine Creatinine Urine Total Protein Coronavirus (PCR) Crossmatch 06/04/20 06/04/20 06/04/20 04:19 05:51 11:48 WBC RBC Hgb Hct RDW Lymph % (Auto) [place] % (Auto) Eos % (Auto) Lymph # [place] # Seg Neutrophils % Seg Neuts % (Manual) Lymphocytes % (Manual) Seg Neutrophils # Seg Neutrophils # Man Lymphocytes # (Manual) Monocytes # (Manual) D-Dimer 414.52 H Heparin Anti-Xa Level ABG pH POC ABG pCO2 POC ABG pO2 ABG pO2 ABG HCO3 ABG O2 Saturation ABG Base Excess ABG Hemoglobin ABG Oxyhemoglobin VBG pH Oxyhemoglobin Sodium Potassium Chloride Carbon Dioxide BUN Creatinine Glucose POC Glucose 179 H 213 H Lactic Acid Calcium AST Alkaline Phosphatase Lactate Dehydrogenase Total Creatine Kinase CK-MB (CK-2) C-Reactive Protein Total Protein Albumin Urine WBC (Auto) Urine Creatinine Urine Total Protein Coronavirus (PCR) Crossmatch 06/04/20 06/05/20 06/05/20 18:25 00:16 05:00 WBC RBC Hgb Hct RDW Lymph % (Auto) [place] % (Auto) Eos % (Auto) Lymph # [place] # Seg Neutrophils % Seg Neuts % (Manual) Lymphocytes % (Manual) Seg Neutrophils # Seg Neutrophils # Man Lymphocytes # (Manual) Monocytes # (Manual) D-Dimer Heparin Anti-Xa Level ABG pH 7.286 L POC ABG pCO2 POC ABG pO2 ABG pO2 96.2 H ABG HCO3 ABG O2 Saturation ABG Base Excess -6.3 L ABG Hemoglobin 8.8 L ABG Oxyhemoglobin VBG pH Oxyhemoglobin 94.8 L Sodium Potassium Chloride Carbon Dioxide BUN Creatinine Glucose POC Glucose 238 H 183 H Lactic Acid Calcium AST Alkaline Phosphatase Lactate Dehydrogenase Total Creatine Kinase CK-MB (CK-2) C-Reactive Protein Total Protein Albumin Urine WBC (Auto) Urine Creatinine Urine Total Protein Coronavirus (PCR) Crossmatch 06/05/20 06/05/20 06/05/20 05:39 07:25 07:25 WBC RBC 2.97 L Hgb 8.7 L Hct 25.7 L RDW 16.0 H Lymph % (Auto) 8.8 L [place] % (Auto) 13.3 H Eos % (Auto) Lymph # 0.8 L [place] # 1.3 H Seg Neutrophils % 77.3 H Seg Neuts % (Manual) Lymphocytes % (Manual) Seg Neutrophils # Seg Neutrophils # Man Lymphocytes # (Manual) Monocytes # (Manual) D-Dimer Heparin Anti-Xa Level ABG pH POC ABG pCO2 POC ABG pO2 ABG pO2 ABG HCO3 ABG O2 Saturation ABG Base Excess ABG Hemoglobin ABG Oxyhemoglobin VBG pH Oxyhemoglobin Sodium 133 L Potassium Chloride Carbon Dioxide 17 L BUN 89 H Creatinine 2.8 H Glucose 176 H POC Glucose 149 H Lactic Acid Calcium 7.7 L AST Alkaline Phosphatase Lactate Dehydrogenase Total Creatine Kinase CK-MB (CK-2) C-Reactive Protein Total Protein 4.2 L Albumin 1.9 L Urine WBC (Auto) Urine Creatinine Urine Total Protein Coronavirus (PCR) Crossmatch 06/05/20 06/05/20 06/05/20 07:25 12:05 15:41 WBC RBC Hgb Hct RDW Lymph % (Auto) [place] % (Auto) Eos % (Auto) Lymph # [place] # Seg Neutrophils % Seg Neuts % (Manual) Lymphocytes % (Manual) Seg Neutrophils # Seg Neutrophils # Man Lymphocytes # (Manual) Monocytes # (Manual) D-Dimer Heparin Anti-Xa Level 0.76 H 0.81 H ABG pH POC ABG pCO2 POC ABG pO2 ABG pO2 ABG HCO3 ABG O2 Saturation ABG Base Excess ABG Hemoglobin ABG Oxyhemoglobin VBG pH Oxyhemoglobin Sodium Potassium Chloride Carbon Dioxide BUN Creatinine Glucose POC Glucose 198 H Lactic Acid Calcium AST Alkaline Phosphatase Lactate Dehydrogenase Total Creatine Kinase CK-MB (CK-2) C-Reactive Protein Total Protein Albumin Urine WBC (Auto) Urine Creatinine Urine Total Protein Coronavirus (PCR) Crossmatch 06/05/20 06/05/20 06/06/20 18:08 23:25 04:00 WBC RBC Hgb Hct RDW Lymph % (Auto) [place] % (Auto) Eos % (Auto) Lymph # [place] # Seg Neutrophils % Seg Neuts % (Manual) Lymphocytes % (Manual) Seg Neutrophils # Seg Neutrophils # Man Lymphocytes # (Manual) Monocytes # (Manual) D-Dimer Heparin Anti-Xa Level ABG pH POC ABG pCO2 POC ABG pO2 ABG pO2 ABG HCO3 ABG O2 Saturation ABG Base Excess ABG Hemoglobin ABG Oxyhemoglobin VBG pH Oxyhemoglobin Sodium Potassium Chloride Carbon Dioxide BUN Creatinine Glucose POC Glucose 223 H 169 H Lactic Acid Calcium AST Alkaline Phosphatase Lactate Dehydrogenase Total Creatine Kinase CK-MB (CK-2) C-Reactive Protein Total Protein Albumin Urine WBC (Auto) 15.0 H Urine Creatinine Urine Total Protein Coronavirus (PCR) Crossmatch 06/06/20 06/06/20 06/06/20 04:00 05:33 05:38 WBC RBC 2.97 L Hgb 8.7 L Hct 26.8 L RDW 16.8 H Lymph % (Auto) [place] % (Auto) Eos % (Auto) Lymph # [place] # Seg Neutrophils % Seg Neuts % (Manual) Lymphocytes % (Manual) Seg Neutrophils # Seg Neutrophils # Man Lymphocytes # (Manual) Monocytes # (Manual) D-Dimer Heparin Anti-Xa Level ABG pH POC ABG pCO2 POC ABG pO2 ABG pO2 ABG HCO3 ABG O2 Saturation ABG Base Excess ABG Hemoglobin ABG Oxyhemoglobin VBG pH Oxyhemoglobin Sodium Potassium Chloride Carbon Dioxide BUN Creatinine Glucose POC Glucose 186 H Lactic Acid Calcium AST Alkaline Phosphatase Lactate Dehydrogenase Total Creatine Kinase CK-MB (CK-2) C-Reactive Protein Total Protein Albumin Urine WBC (Auto) Urine Creatinine 82.2 H Urine Total Protein 196 H Coronavirus (PCR) Crossmatch 06/06/20 06/06/20 06/06/20 05:38 12:25 17:03 WBC RBC Hgb Hct RDW Lymph % (Auto) [place] % (Auto) Eos % (Auto) Lymph # [place] # Seg Neutrophils % Seg Neuts % (Manual) Lymphocytes % (Manual) Seg Neutrophils # Seg Neutrophils # Man Lymphocytes # (Manual) Monocytes # (Manual) D-Dimer Heparin Anti-Xa Level ABG pH POC ABG pCO2 POC ABG pO2 ABG pO2 ABG HCO3 ABG O2 Saturation ABG Base Excess ABG Hemoglobin ABG Oxyhemoglobin VBG pH Oxyhemoglobin Sodium 134 L Potassium 5.2 H Chloride Carbon Dioxide 18 L BUN 97 H Creatinine 2.5 H Glucose 193 H POC Glucose 239 H 252 H Lactic Acid Calcium 7.5 L AST Alkaline Phosphatase Lactate Dehydrogenase Total Creatine Kinase CK-MB (CK-2) C-Reactive Protein Total Protein 4.1 L Albumin 1.9 L Urine WBC (Auto) Urine Creatinine Urine Total Protein Coronavirus (PCR) Crossmatch 06/07/20 06/07/20 06/07/20 00:16 01:49 04:00 WBC RBC 2.91 L Hgb 8.4 L Hct 25.0 L RDW 16.1 H Lymph % (Auto) 5.7 L [place] % (Auto) 10.5 H Eos % (Auto) Lymph # 0.6 L [place] # 1.1 H Seg Neutrophils % 83.6 H Seg Neuts % (Manual) Lymphocytes % (Manual) Seg Neutrophils # 9.1 H Seg Neutrophils # Man Lymphocytes # (Manual) Monocytes # (Manual) D-Dimer Heparin Anti-Xa Level 0.26 L ABG pH POC ABG pCO2 POC ABG pO2 ABG pO2 ABG HCO3 ABG O2 Saturation ABG Base Excess ABG Hemoglobin ABG Oxyhemoglobin VBG pH Oxyhemoglobin Sodium Potassium Chloride Carbon Dioxide BUN Creatinine Glucose POC Glucose 173 H Lactic Acid Calcium AST Alkaline Phosphatase Lactate Dehydrogenase Total Creatine Kinase CK-MB (CK-2) C-Reactive Protein Total Protein Albumin Urine WBC (Auto) Urine Creatinine Urine Total Protein Coronavirus (PCR) Crossmatch 06/07/20 06/07/20 06/07/20 04:00 04:54 05:51 WBC RBC Hgb Hct RDW Lymph % (Auto) [place] % (Auto) Eos % (Auto) Lymph # [place] # Seg Neutrophils % Seg Neuts % (Manual) Lymphocytes % (Manual) Seg Neutrophils # Seg Neutrophils # Man Lymphocytes # (Manual) Monocytes # (Manual) D-Dimer Heparin Anti-Xa Level ABG pH 7.317 L POC ABG pCO2 POC ABG pO2 ABG pO2 71.4 L ABG HCO3 ABG O2 Saturation 94.3 L ABG Base Excess -4.8 L ABG Hemoglobin 7.1 L ABG Oxyhemoglobin VBG pH Oxyhemoglobin 92.2 L Sodium 133 L Potassium Chloride Carbon Dioxide 18 L BUN 100 H Creatinine 2.5 H Glucose 158 H POC Glucose 168 H Lactic Acid Calcium 7.6 L AST Alkaline Phosphatase Lactate Dehydrogenase Total Creatine Kinase CK-MB (CK-2) C-Reactive Protein Total Protein 4.7 L Albumin 2.0 L Urine WBC (Auto) Urine Creatinine Urine Total Protein Coronavirus (PCR) Crossmatch 06/07/20 06/07/20 06/07/20 12:03 17:17 20:10 WBC RBC Hgb Hct RDW Lymph % (Auto) [place] % (Auto) Eos % (Auto) Lymph # [place] # Seg Neutrophils % Seg Neuts % (Manual) Lymphocytes % (Manual) Seg Neutrophils # Seg Neutrophils # Man Lymphocytes # (Manual) Monocytes # (Manual) D-Dimer Heparin Anti-Xa Level 0.17 L ABG pH POC ABG pCO2 POC ABG pO2 ABG pO2 ABG HCO3 ABG O2 Saturation ABG Base Excess ABG Hemoglobin ABG Oxyhemoglobin VBG pH Oxyhemoglobin Sodium Potassium Chloride Carbon Dioxide BUN Creatinine Glucose POC Glucose 276 H 281 H Lactic Acid Calcium AST Alkaline Phosphatase Lactate Dehydrogenase Total Creatine Kinase CK-MB (CK-2) C-Reactive Protein Total Protein Albumin Urine WBC (Auto) Urine Creatinine Urine Total Protein Coronavirus (PCR) Crossmatch 06/08/20 06/08/20 06/08/20 00:02 04:47 04:47 WBC 16.4 H RBC 3.07 L Hgb 8.6 L Hct 26.5 L RDW 16.3 H Lymph % (Auto) [place] % (Auto) Eos % (Auto) Lymph # [place] # Seg Neutrophils % Seg Neuts % (Manual) 90.0 H Lymphocytes % (Manual) 3.0 L Seg Neutrophils # Seg Neutrophils # Man 14.8 H Lymphocytes # (Manual) 0.5 L Monocytes # (Manual) 1.1 H D-Dimer Heparin Anti-Xa Level ABG pH POC ABG pCO2 POC ABG pO2 ABG pO2 ABG HCO3 ABG O2 Saturation ABG Base Excess ABG Hemoglobin ABG Oxyhemoglobin VBG pH Oxyhemoglobin Sodium 129 L Potassium Chloride 95.6 L Carbon Dioxide 17 L BUN 106 H Creatinine 2.5 H Glucose 213 H POC Glucose 242 H Lactic Acid Calcium 7.6 L AST Alkaline Phosphatase Lactate Dehydrogenase Total Creatine Kinase CK-MB (CK-2) C-Reactive Protein Total Protein 5.0 L Albumin 2.1 L Urine WBC (Auto) Urine Creatinine Urine Total Protein Coronavirus (PCR) Crossmatch 06/08/20 06/08/20 06/08/20 05:40 11:55 17:54 WBC RBC Hgb Hct RDW Lymph % (Auto) [place] % (Auto) Eos % (Auto) Lymph # [place] # Seg Neutrophils % Seg Neuts % (Manual) Lymphocytes % (Manual) Seg Neutrophils # Seg Neutrophils # Man Lymphocytes # (Manual) Monocytes # (Manual) D-Dimer Heparin Anti-Xa Level ABG pH POC ABG pCO2 POC ABG pO2 ABG pO2 ABG HCO3 ABG O2 Saturation ABG Base Excess ABG Hemoglobin ABG Oxyhemoglobin VBG pH Oxyhemoglobin Sodium Potassium Chloride Carbon Dioxide BUN Creatinine Glucose POC Glucose 221 H 218 H 163 H Lactic Acid Calcium AST Alkaline Phosphatase Lactate Dehydrogenase Total Creatine Kinase CK-MB (CK-2) C-Reactive Protein Total Protein Albumin Urine WBC (Auto) Urine Creatinine Urine Total Protein Coronavirus (PCR) Crossmatch 06/08/20 06/09/20 06/09/20 22:01 00:09 05:16 WBC 19.0 H RBC 3.35 L Hgb 9.2 L Hct 28.5 L RDW 16.3 H Lymph % (Auto) [place] % (Auto) Eos % (Auto) Lymph # [place] # Seg Neutrophils % Seg Neuts % (Manual) 85.0 H Lymphocytes % (Manual) 7.0 L Seg Neutrophils # Seg Neutrophils # Man 16.2 H Lymphocytes # (Manual) Monocytes # (Manual) 1.3 H D-Dimer Heparin Anti-Xa Level ABG pH POC ABG pCO2 POC ABG pO2 ABG pO2 ABG HCO3 ABG O2 Saturation ABG Base Excess ABG Hemoglobin ABG Oxyhemoglobin VBG pH Oxyhemoglobin Sodium Potassium Chloride Carbon Dioxide BUN Creatinine Glucose POC Glucose 182 H 150 H Lactic Acid Calcium AST Alkaline Phosphatase Lactate Dehydrogenase Total Creatine Kinase CK-MB (CK-2) C-Reactive Protein Total Protein Albumin Urine WBC (Auto) Urine Creatinine Urine Total Protein Coronavirus (PCR) Crossmatch 06/09/20 06/09/20 06/09/20 05:16 05:24 11:29 WBC RBC Hgb Hct RDW Lymph % (Auto) [place] % (Auto) Eos % (Auto) Lymph # [place] # Seg Neutrophils % Seg Neuts % (Manual) Lymphocytes % (Manual) Seg Neutrophils # Seg Neutrophils # Man Lymphocytes # (Manual) Monocytes # (Manual) D-Dimer Heparin Anti-Xa Level ABG pH POC ABG pCO2 POC ABG pO2 ABG pO2 ABG HCO3 ABG O2 Saturation ABG Base Excess ABG Hemoglobin ABG Oxyhemoglobin VBG pH Oxyhemoglobin Sodium 133 L Potassium Chloride Carbon Dioxide 19 L BUN 109 H Creatinine 2.1 H Glucose 133 H POC Glucose 128 H 119 H Lactic Acid Calcium 7.7 L AST Alkaline Phosphatase < 5 L Lactate Dehydrogenase Total Creatine Kinase CK-MB (CK-2) C-Reactive Protein Total Protein 4.6 L Albumin < 0.2 L Urine WBC (Auto) Urine Creatinine Urine Total Protein Coronavirus (PCR) Crossmatch 06/09/20 06/10/20 06/10/20 17:32 00:00 05:49 WBC RBC Hgb Hct RDW Lymph % (Auto) [place] % (Auto) Eos % (Auto) Lymph # [place] # Seg Neutrophils % Seg Neuts % (Manual) Lymphocytes % (Manual) Seg Neutrophils # Seg Neutrophils # Man Lymphocytes # (Manual) Monocytes # (Manual) D-Dimer Heparin Anti-Xa Level 0.19 L ABG pH POC ABG pCO2 POC ABG pO2 ABG pO2 ABG HCO3 ABG O2 Saturation ABG Base Excess ABG Hemoglobin ABG Oxyhemoglobin VBG pH Oxyhemoglobin Sodium Potassium Chloride Carbon Dioxide BUN Creatinine Glucose POC Glucose 106 H 117 H Lactic Acid Calcium AST Alkaline Phosphatase Lactate Dehydrogenase Total Creatine Kinase CK-MB (CK-2) C-Reactive Protein Total Protein Albumin Urine WBC (Auto) Urine Creatinine Urine Total Protein Coronavirus (PCR) Crossmatch 06/10/20 06/10/20 06/10/20 05:54 07:40 11:40 WBC RBC Hgb Hct RDW Lymph % (Auto) [place] % (Auto) Eos % (Auto) Lymph # [place] # Seg Neutrophils % Seg Neuts % (Manual) Lymphocytes % (Manual) Seg Neutrophils # Seg Neutrophils # Man Lymphocytes # (Manual) Monocytes # (Manual) D-Dimer Heparin Anti-Xa Level ABG pH POC ABG pCO2 POC ABG pO2 ABG pO2 ABG HCO3 ABG O2 Saturation ABG Base Excess ABG Hemoglobin ABG Oxyhemoglobin VBG pH Oxyhemoglobin Sodium 146 H D Potassium Chloride Carbon Dioxide 20 L BUN 99 H Creatinine 1.9 H Glucose 121 H POC Glucose 127 H 138 H Lactic Acid Calcium 8.2 L AST Alkaline Phosphatase Lactate Dehydrogenase Total Creatine Kinase CK-MB (CK-2) C-Reactive Protein Total Protein Albumin Urine WBC (Auto) Urine Creatinine Urine Total Protein Coronavirus (PCR) Crossmatch 06/10/20 06/10/20 06/10/20 14:44 17:31 23:22 WBC RBC Hgb Hct RDW Lymph % (Auto) [place] % (Auto) Eos % (Auto) Lymph # [place] # Seg Neutrophils % Seg Neuts % (Manual) Lymphocytes % (Manual) Seg Neutrophils # Seg Neutrophils # Man Lymphocytes # (Manual) Monocytes # (Manual) D-Dimer Heparin Anti-Xa Level 0.17 L ABG pH POC ABG pCO2 POC ABG pO2 ABG pO2 ABG HCO3 ABG O2 Saturation ABG Base Excess ABG Hemoglobin ABG Oxyhemoglobin VBG pH Oxyhemoglobin Sodium Potassium Chloride Carbon Dioxide BUN Creatinine Glucose POC Glucose 128 H 114 H Lactic Acid Calcium AST Alkaline Phosphatase Lactate Dehydrogenase Total Creatine Kinase CK-MB (CK-2) C-Reactive Protein Total Protein Albumin Urine WBC (Auto) Urine Creatinine Urine Total Protein Coronavirus (PCR) Crossmatch 06/11/20 06/11/20 06/11/20 00:22 03:45 03:45 WBC 14.6 H RBC 2.77 L Hgb 7.9 L Hct 24.3 L RDW 16.8 H Lymph % (Auto) 6.6 L [place] % (Auto) 8.5 H Eos % (Auto) Lymph # 1.0 L [place] # 1.2 H Seg Neutrophils % 82.9 H Seg Neuts % (Manual) Lymphocytes % (Manual) Seg Neutrophils # 12.1 H Seg Neutrophils # Man Lymphocytes # (Manual) Monocytes # (Manual) D-Dimer Heparin Anti-Xa Level 0.24 L ABG pH POC ABG pCO2 POC ABG pO2 ABG pO2 ABG HCO3 ABG O2 Saturation ABG Base Excess ABG Hemoglobin ABG Oxyhemoglobin VBG pH Oxyhemoglobin Sodium Potassium Chloride Carbon Dioxide 20 L BUN 88 H Creatinine 1.5 H Glucose 111 H POC Glucose Lactic Acid Calcium 8.2 L AST Alkaline Phosphatase Lactate Dehydrogenase Total Creatine Kinase CK-MB (CK-2) C-Reactive Protein Total Protein Albumin Urine WBC (Auto) Urine Creatinine Urine Total Protein Coronavirus (PCR) Crossmatch 06/11/20 06/11/20 06/11/20 06:03 10:22 11:11 WBC RBC Hgb Hct RDW Lymph % (Auto) [place] % (Auto) Eos % (Auto) Lymph # [place] # Seg Neutrophils % Seg Neuts % (Manual) Lymphocytes % (Manual) Seg Neutrophils # Seg Neutrophils # Man Lymphocytes # (Manual) Monocytes # (Manual) D-Dimer Heparin Anti-Xa Level 0.26 L ABG pH POC ABG pCO2 POC ABG pO2 ABG pO2 ABG HCO3 ABG O2 Saturation ABG Base Excess ABG Hemoglobin 9.6 L ABG Oxyhemoglobin VBG pH Oxyhemoglobin Sodium Potassium Chloride Carbon Dioxide BUN Creatinine Glucose POC Glucose 114 H Lactic Acid Calcium AST Alkaline Phosphatase Lactate Dehydrogenase Total Creatine Kinase CK-MB (CK-2) C-Reactive Protein Total Protein Albumin Urine WBC (Auto) Urine Creatinine Urine Total Protein Coronavirus (PCR) Crossmatch 06/11/20 06/11/20 06/12/20 12:24 17:24 00:21 WBC RBC Hgb Hct RDW Lymph % (Auto) [place] % (Auto) Eos % (Auto) Lymph # [place] # Seg Neutrophils % Seg Neuts % (Manual) Lymphocytes % (Manual) Seg Neutrophils # Seg Neutrophils # Man Lymphocytes # (Manual) Monocytes # (Manual) D-Dimer Heparin Anti-Xa Level ABG pH POC ABG pCO2 POC ABG pO2 ABG pO2 ABG HCO3 ABG O2 Saturation ABG Base Excess ABG Hemoglobin ABG Oxyhemoglobin VBG pH Oxyhemoglobin Sodium Potassium Chloride Carbon Dioxide BUN Creatinine Glucose POC Glucose 119 H 126 H 117 H Lactic Acid Calcium AST Alkaline Phosphatase Lactate Dehydrogenase Total Creatine Kinase CK-MB (CK-2) C-Reactive Protein Total Protein Albumin Urine WBC (Auto) Urine Creatinine Urine Total Protein Coronavirus (PCR) Crossmatch 06/12/20 06/12/20 06/12/20 02:46 02:46 05:46 WBC 13.2 H RBC 2.83 L Hgb 8.3 L Hct 24.3 L RDW 16.6 H Lymph % (Auto) 6.2 L [place] % (Auto) 9.5 H Eos % (Auto) Lymph # 0.8 L [place] # 1.3 H Seg Neutrophils % 81.9 H Seg Neuts % (Manual) Lymphocytes % (Manual) Seg Neutrophils # 10.9 H Seg Neutrophils # Man Lymphocytes # (Manual) Monocytes # (Manual) D-Dimer Heparin Anti-Xa Level ABG pH POC ABG pCO2 POC ABG pO2 ABG pO2 ABG HCO3 ABG O2 Saturation ABG Base Excess ABG Hemoglobin ABG Oxyhemoglobin VBG pH Oxyhemoglobin Sodium Potassium 3.5 L Chloride Carbon Dioxide BUN 77 H Creatinine 1.3 H Glucose POC Glucose 132 H Lactic Acid Calcium 8.3 L AST Alkaline Phosphatase Lactate Dehydrogenase Total Creatine Kinase CK-MB (CK-2) C-Reactive Protein Total Protein Albumin Urine WBC (Auto) Urine Creatinine Urine Total Protein Coronavirus (PCR) Crossmatch 06/12/20 06/12/20 06/12/20 09:20 12:16 17:48 WBC RBC Hgb Hct RDW Lymph % (Auto) [place] % (Auto) Eos % (Auto) Lymph # [place] # Seg Neutrophils % Seg Neuts % (Manual) Lymphocytes % (Manual) Seg Neutrophils # Seg Neutrophils # Man Lymphocytes # (Manual) Monocytes # (Manual) D-Dimer Heparin Anti-Xa Level ABG pH POC ABG pCO2 POC ABG pO2 ABG pO2 91.1 H ABG HCO3 ABG O2 Saturation ABG Base Excess ABG Hemoglobin ABG Oxyhemoglobin VBG pH Oxyhemoglobin 94.8 L Sodium Potassium Chloride Carbon Dioxide BUN Creatinine Glucose POC Glucose 167 H 182 H Lactic Acid Calcium AST Alkaline Phosphatase Lactate Dehydrogenase Total Creatine Kinase CK-MB (CK-2) C-Reactive Protein Total Protein Albumin Urine WBC (Auto) Urine Creatinine Urine Total Protein Coronavirus (PCR) Crossmatch 06/13/20 06/13/20 06/13/20 00:08 05:37 09:09 WBC RBC Hgb Hct RDW Lymph % (Auto) [place] % (Auto) Eos % (Auto) Lymph # [place] # Seg Neutrophils % Seg Neuts % (Manual) Lymphocytes % (Manual) Seg Neutrophils # Seg Neutrophils # Man Lymphocytes # (Manual) Monocytes # (Manual) D-Dimer Heparin Anti-Xa Level 0.86 H ABG pH POC ABG pCO2 POC ABG pO2 ABG pO2 ABG HCO3 ABG O2 Saturation ABG Base Excess ABG Hemoglobin ABG Oxyhemoglobin VBG pH Oxyhemoglobin Sodium Potassium Chloride Carbon Dioxide BUN Creatinine Glucose POC Glucose 142 H 119 H Lactic Acid Calcium AST Alkaline Phosphatase Lactate Dehydrogenase Total Creatine Kinase CK-MB (CK-2) C-Reactive Protein Total Protein Albumin Urine WBC (Auto) Urine Creatinine Urine Total Protein Coronavirus (PCR) Crossmatch 06/13/20 06/13/20 06/13/20 12:28 17:55 21:17 WBC RBC Hgb Hct RDW Lymph % (Auto) [place] % (Auto) Eos % (Auto) Lymph # [place] # Seg Neutrophils % Seg Neuts % (Manual) Lymphocytes % (Manual) Seg Neutrophils # Seg Neutrophils # Man Lymphocytes # (Manual) Monocytes # (Manual) D-Dimer Heparin Anti-Xa Level ABG pH POC ABG pCO2 POC ABG pO2 ABG pO2 ABG HCO3 ABG O2 Saturation ABG Base Excess ABG Hemoglobin ABG Oxyhemoglobin VBG pH Oxyhemoglobin Sodium Potassium Chloride Carbon Dioxide BUN 61 H Creatinine Glucose 131 H POC Glucose 165 H 174 H Lactic Acid Calcium AST Alkaline Phosphatase Lactate Dehydrogenase Total Creatine Kinase CK-MB (CK-2) C-Reactive Protein Total Protein Albumin Urine WBC (Auto) Urine Creatinine Urine Total Protein Coronavirus (PCR) Crossmatch 06/13/20 06/13/20 06/14/20 21:17 23:50 05:34 WBC RBC Hgb Hct RDW Lymph % (Auto) [place] % (Auto) Eos % (Auto) Lymph # [place] # Seg Neutrophils % Seg Neuts % (Manual) Lymphocytes % (Manual) Seg Neutrophils # Seg Neutrophils # Man Lymphocytes # (Manual) Monocytes # (Manual) D-Dimer Heparin Anti-Xa Level 0.72 H ABG pH POC ABG pCO2 POC ABG pO2 ABG pO2 ABG HCO3 ABG O2 Saturation ABG Base Excess ABG Hemoglobin ABG Oxyhemoglobin VBG pH Oxyhemoglobin Sodium 146 H Potassium Chloride 107.6 H Carbon Dioxide BUN 61 H Creatinine 1.3 H Glucose 135 H POC Glucose 146 H Lactic Acid Calcium AST Alkaline Phosphatase Lactate Dehydrogenase Total Creatine Kinase CK-MB (CK-2) C-Reactive Protein Total Protein Albumin Urine WBC (Auto) Urine Creatinine Urine Total Protein Coronavirus (PCR) Crossmatch 06/14/20 06/14/20 06/14/20 06:11 09:28 11:30 WBC RBC Hgb Hct RDW Lymph % (Auto) [place] % (Auto) Eos % (Auto) Lymph # [place] # Seg Neutrophils % Seg Neuts % (Manual) Lymphocytes % (Manual) Seg Neutrophils # Seg Neutrophils # Man Lymphocytes # (Manual) Monocytes # (Manual) D-Dimer Heparin Anti-Xa Level 0.90 H ABG pH POC ABG pCO2 POC ABG pO2 ABG pO2 ABG HCO3 ABG O2 Saturation ABG Base Excess ABG Hemoglobin ABG Oxyhemoglobin VBG pH Oxyhemoglobin Sodium Potassium Chloride Carbon Dioxide BUN Creatinine Glucose POC Glucose 141 H 186 H Lactic Acid Calcium AST Alkaline Phosphatase Lactate Dehydrogenase Total Creatine Kinase CK-MB (CK-2) C-Reactive Protein Total Protein Albumin Urine WBC (Auto) Urine Creatinine Urine Total Protein Coronavirus (PCR) Crossmatch 06/14/20 06/14/20 06/14/20 16:07 18:16 23:51 WBC RBC Hgb Hct RDW Lymph % (Auto) [place] % (Auto) Eos % (Auto) Lymph # [place] # Seg Neutrophils % Seg Neuts % (Manual) Lymphocytes % (Manual) Seg Neutrophils # Seg Neutrophils # Man Lymphocytes # (Manual) Monocytes # (Manual) D-Dimer Heparin Anti-Xa Level 0.82 H ABG pH POC ABG pCO2 POC ABG pO2 ABG pO2 ABG HCO3 ABG O2 Saturation ABG Base Excess ABG Hemoglobin ABG Oxyhemoglobin VBG pH Oxyhemoglobin Sodium Potassium Chloride Carbon Dioxide BUN Creatinine Glucose POC Glucose 106 H 154 H Lactic Acid Calcium AST Alkaline Phosphatase Lactate Dehydrogenase Total Creatine Kinase CK-MB (CK-2) C-Reactive Protein Total Protein Albumin Urine WBC (Auto) Urine Creatinine Urine Total Protein Coronavirus (PCR) Crossmatch 06/15/20 06/15/20 06/15/20 04:24 04:24 05:59 WBC RBC 2.75 L Hgb 7.9 L Hct 24.0 L RDW 16.4 H Lymph % (Auto) 12.9 L [place] % (Auto) 8.7 H Eos % (Auto) 4.6 H Lymph # 1.1 L [place] # Seg Neutrophils % 73.2 H Seg Neuts % (Manual) Lymphocytes % (Manual) Seg Neutrophils # Seg Neutrophils # Man Lymphocytes # (Manual) Monocytes # (Manual) D-Dimer Heparin Anti-Xa Level ABG pH POC ABG pCO2 POC ABG pO2 ABG pO2 ABG HCO3 ABG O2 Saturation ABG Base Excess ABG Hemoglobin ABG Oxyhemoglobin VBG pH Oxyhemoglobin Sodium Potassium 3.4 L Chloride Carbon Dioxide BUN 55 H Creatinine 1.3 H Glucose 142 H POC Glucose 131 H Lactic Acid Calcium AST Alkaline Phosphatase Lactate Dehydrogenase Total Creatine Kinase CK-MB (CK-2) C-Reactive Protein Total Protein Albumin Urine WBC (Auto) Urine Creatinine Urine Total Protein Coronavirus (PCR) Crossmatch 06/15/20 06/15/20 06/16/20 12:33 17:07 00:22 WBC RBC Hgb Hct RDW Lymph % (Auto) [place] % (Auto) Eos % (Auto) Lymph # [place] # Seg Neutrophils % Seg Neuts % (Manual) Lymphocytes % (Manual) Seg Neutrophils # Seg Neutrophils # Man Lymphocytes # (Manual) Monocytes # (Manual) D-Dimer Heparin Anti-Xa Level 0.21 L ABG pH POC ABG pCO2 POC ABG pO2 ABG pO2 ABG HCO3 ABG O2 Saturation ABG Base Excess ABG Hemoglobin ABG Oxyhemoglobin VBG pH Oxyhemoglobin Sodium Potassium Chloride Carbon Dioxide BUN Creatinine Glucose POC Glucose 180 H 185 H Lactic Acid Calcium AST Alkaline Phosphatase Lactate Dehydrogenase Total Creatine Kinase CK-MB (CK-2) C-Reactive Protein Total Protein Albumin Urine WBC (Auto) Urine Creatinine Urine Total Protein Coronavirus (PCR) Crossmatch 06/16/20 06/16/20 06/16/20 01:45 08:06 09:15 WBC RBC Hgb Hct RDW Lymph % (Auto) [place] % (Auto) Eos % (Auto) Lymph # [place] # Seg Neutrophils % Seg Neuts % (Manual) Lymphocytes % (Manual) Seg Neutrophils # Seg Neutrophils # Man Lymphocytes # (Manual) Monocytes # (Manual) D-Dimer Heparin Anti-Xa Level ABG pH POC ABG pCO2 POC ABG pO2 ABG pO2 ABG HCO3 ABG O2 Saturation ABG Base Excess ABG Hemoglobin ABG Oxyhemoglobin VBG pH Oxyhemoglobin Sodium Potassium Chloride Carbon Dioxide BUN 49 H Creatinine Glucose 154 H POC Glucose 140 H 171 H Lactic Acid Calcium AST Alkaline Phosphatase Lactate Dehydrogenase Total Creatine Kinase CK-MB (CK-2) C-Reactive Protein Total Protein Albumin Urine WBC (Auto) Urine Creatinine Urine Total Protein Coronavirus (PCR) Crossmatch 06/16/20 06/16/20 06/16/20 10:46 12:33 17:54 WBC RBC Hgb Hct RDW Lymph % (Auto) [place] % (Auto) Eos % (Auto) Lymph # [place] # Seg Neutrophils % Seg Neuts % (Manual) Lymphocytes % (Manual) Seg Neutrophils # Seg Neutrophils # Man Lymphocytes # (Manual) Monocytes # (Manual) D-Dimer Heparin Anti-Xa Level 0.12 L ABG pH POC ABG pCO2 POC ABG pO2 ABG pO2 ABG HCO3 ABG O2 Saturation ABG Base Excess ABG Hemoglobin ABG Oxyhemoglobin VBG pH Oxyhemoglobin Sodium Potassium Chloride Carbon Dioxide BUN Creatinine Glucose POC Glucose 166 H 151 H Lactic Acid Calcium AST Alkaline Phosphatase Lactate Dehydrogenase Total Creatine Kinase CK-MB (CK-2) C-Reactive Protein Total Protein Albumin Urine WBC (Auto) Urine Creatinine Urine Total Protein Coronavirus (PCR) Crossmatch 06/16/20 06/17/20 06/17/20 18:47 00:00 02:19 WBC RBC Hgb Hct RDW Lymph % (Auto) [place] % (Auto) Eos % (Auto) Lymph # [place] # Seg Neutrophils % Seg Neuts % (Manual) Lymphocytes % (Manual) Seg Neutrophils # Seg Neutrophils # Man Lymphocytes # (Manual) Monocytes # (Manual) D-Dimer Heparin Anti-Xa Level 0.73 H 0.77 H ABG pH POC ABG pCO2 POC ABG pO2 ABG pO2 ABG HCO3 ABG O2 Saturation ABG Base Excess ABG Hemoglobin ABG Oxyhemoglobin VBG pH Oxyhemoglobin Sodium Potassium Chloride Carbon Dioxide BUN Creatinine Glucose POC Glucose 139 H Lactic Acid Calcium AST Alkaline Phosphatase Lactate Dehydrogenase Total Creatine Kinase CK-MB (CK-2) C-Reactive Protein Total Protein Albumin Urine WBC (Auto) Urine Creatinine Urine Total Protein Coronavirus (PCR) Crossmatch 06/17/20 06/17/20 06/17/20 06:07 11:42 16:43 WBC RBC Hgb Hct RDW Lymph % (Auto) [place] % (Auto) Eos % (Auto) Lymph # [place] # Seg Neutrophils % Seg Neuts % (Manual) Lymphocytes % (Manual) Seg Neutrophils # Seg Neutrophils # Man Lymphocytes # (Manual) Monocytes # (Manual) D-Dimer Heparin Anti-Xa Level 0.73 H ABG pH POC ABG pCO2 POC ABG pO2 ABG pO2 ABG HCO3 ABG O2 Saturation ABG Base Excess ABG Hemoglobin ABG Oxyhemoglobin VBG pH Oxyhemoglobin Sodium Potassium Chloride Carbon Dioxide BUN Creatinine Glucose POC Glucose 169 H 169 H Lactic Acid Calcium AST Alkaline Phosphatase Lactate Dehydrogenase Total Creatine Kinase CK-MB (CK-2) C-Reactive Protein Total Protein Albumin Urine WBC (Auto) Urine Creatinine Urine Total Protein Coronavirus (PCR) Crossmatch 06/17/20 06/17/20 06/17/20 18:18 23:08 23:16 WBC RBC Hgb Hct RDW Lymph % (Auto) [place] % (Auto) Eos % (Auto) Lymph # [place] # Seg Neutrophils % Seg Neuts % (Manual) Lymphocytes % (Manual) Seg Neutrophils # Seg Neutrophils # Man Lymphocytes # (Manual) Monocytes # (Manual) D-Dimer Heparin Anti-Xa Level 0.71 H ABG pH POC ABG pCO2 POC ABG pO2 ABG pO2 ABG HCO3 ABG O2 Saturation ABG Base Excess ABG Hemoglobin ABG Oxyhemoglobin VBG pH Oxyhemoglobin Sodium Potassium Chloride Carbon Dioxide BUN Creatinine Glucose POC Glucose 159 H 134 H Lactic Acid Calcium AST Alkaline Phosphatase Lactate Dehydrogenase Total Creatine Kinase CK-MB (CK-2) C-Reactive Protein Total Protein Albumin Urine WBC (Auto) Urine Creatinine Urine Total Protein Coronavirus (PCR) Crossmatch 06/18/20 06/18/20 06/18/20 04:42 05:52 11:50 WBC RBC Hgb Hct RDW Lymph % (Auto) [place] % (Auto) Eos % (Auto) Lymph # [place] # Seg Neutrophils % Seg Neuts % (Manual) Lymphocytes % (Manual) Seg Neutrophils # Seg Neutrophils # Man Lymphocytes # (Manual) Monocytes # (Manual) D-Dimer Heparin Anti-Xa Level ABG pH POC ABG pCO2 POC ABG pO2 ABG pO2 ABG HCO3 ABG O2 Saturation ABG Base Excess ABG Hemoglobin ABG Oxyhemoglobin VBG pH Oxyhemoglobin Sodium Potassium Chloride Carbon Dioxide BUN 44 H Creatinine Glucose 115 H POC Glucose 171 H 167 H Lactic Acid Calcium AST Alkaline Phosphatase Lactate Dehydrogenase Total Creatine Kinase CK-MB (CK-2) C-Reactive Protein Total Protein Albumin Urine WBC (Auto) Urine Creatinine Urine Total Protein Coronavirus (PCR) Crossmatch 06/18/20 06/19/20 06/19/20 23:46 05:48 07:52 WBC RBC Hgb Hct RDW Lymph % (Auto) [place] % (Auto) Eos % (Auto) Lymph # [place] # Seg Neutrophils % Seg Neuts % (Manual) Lymphocytes % (Manual) Seg Neutrophils # Seg Neutrophils # Man Lymphocytes # (Manual) Monocytes # (Manual) D-Dimer Heparin Anti-Xa Level ABG pH POC ABG pCO2 POC ABG pO2 ABG pO2 ABG HCO3 ABG O2 Saturation ABG Base Excess ABG Hemoglobin ABG Oxyhemoglobin VBG pH Oxyhemoglobin Sodium Potassium Chloride Carbon Dioxide BUN Creatinine Glucose POC Glucose 130 H 207 H 175 H Lactic Acid Calcium AST Alkaline Phosphatase Lactate Dehydrogenase Total Creatine Kinase CK-MB (CK-2) C-Reactive Protein Total Protein Albumin Urine WBC (Auto) Urine Creatinine Urine Total Protein Coronavirus (PCR) Crossmatch 06/19/20 06/19/20 06/20/20 11:42 22:54 05:17 WBC RBC Hgb Hct RDW Lymph % (Auto) [place] % (Auto) Eos % (Auto) Lymph # [place] # Seg Neutrophils % Seg Neuts % (Manual) Lymphocytes % (Manual) Seg Neutrophils # Seg Neutrophils # Man Lymphocytes # (Manual) Monocytes # (Manual) D-Dimer Heparin Anti-Xa Level ABG pH POC ABG pCO2 POC ABG pO2 ABG pO2 ABG HCO3 ABG O2 Saturation ABG Base Excess ABG Hemoglobin ABG Oxyhemoglobin VBG pH Oxyhemoglobin Sodium Potassium Chloride Carbon Dioxide BUN Creatinine Glucose POC Glucose 166 H 135 H 218 H Lactic Acid Calcium AST Alkaline Phosphatase Lactate Dehydrogenase Total Creatine Kinase CK-MB (CK-2) C-Reactive Protein Total Protein Albumin Urine WBC (Auto) Urine Creatinine Urine Total Protein Coronavirus (PCR) Crossmatch 06/20/20 06/20/20 06/20/20 12:04 16:25 16:35 WBC RBC Hgb Hct RDW Lymph % (Auto) [place] % (Auto) Eos % (Auto) Lymph # [place] # Seg Neutrophils % Seg Neuts % (Manual) Lymphocytes % (Manual) Seg Neutrophils # Seg Neutrophils # Man Lymphocytes # (Manual) Monocytes # (Manual) D-Dimer Heparin Anti-Xa Level ABG pH POC ABG pCO2 POC ABG pO2 ABG pO2 59.6 L ABG HCO3 28.7 H ABG O2 Saturation 93.5 L ABG Base Excess 3.4 H ABG Hemoglobin 7.2 L ABG Oxyhemoglobin VBG pH Oxyhemoglobin 91.3 L Sodium Potassium Chloride Carbon Dioxide BUN Creatinine Glucose POC Glucose 194 H 137 H Lactic Acid Calcium AST Alkaline Phosphatase Lactate Dehydrogenase Total Creatine Kinase CK-MB (CK-2) C-Reactive Protein Total Protein Albumin Urine WBC (Auto) Urine Creatinine Urine Total Protein Coronavirus (PCR) Crossmatch 06/20/20 06/21/20 06/21/20 23:59 06:25 12:01 WBC RBC Hgb Hct RDW Lymph % (Auto) [place] % (Auto) Eos % (Auto) Lymph # [place] # Seg Neutrophils % Seg Neuts % (Manual) Lymphocytes % (Manual) Seg Neutrophils # Seg Neutrophils # Man Lymphocytes # (Manual) Monocytes # (Manual) D-Dimer Heparin Anti-Xa Level ABG pH POC ABG pCO2 POC ABG pO2 ABG pO2 ABG HCO3 ABG O2 Saturation ABG Base Excess ABG Hemoglobin ABG Oxyhemoglobin VBG pH Oxyhemoglobin Sodium Potassium Chloride Carbon Dioxide BUN Creatinine Glucose POC Glucose 156 H 177 H 195 H Lactic Acid Calcium AST Alkaline Phosphatase Lactate Dehydrogenase Total Creatine Kinase CK-MB (CK-2) C-Reactive Protein Total Protein Albumin Urine WBC (Auto) Urine Creatinine Urine Total Protein Coronavirus (PCR) Crossmatch 06/21/20 06/21/20 06/22/20 17:04 21:51 05:06 WBC RBC Hgb Hct RDW Lymph % (Auto) [place] % (Auto) Eos % (Auto) Lymph # [place] # Seg Neutrophils % Seg Neuts % (Manual) Lymphocytes % (Manual) Seg Neutrophils # Seg Neutrophils # Man Lymphocytes # (Manual) Monocytes # (Manual) D-Dimer Heparin Anti-Xa Level ABG pH POC ABG pCO2 POC ABG pO2 ABG pO2 ABG HCO3 ABG O2 Saturation ABG Base Excess ABG Hemoglobin ABG Oxyhemoglobin VBG pH Oxyhemoglobin Sodium Potassium Chloride Carbon Dioxide BUN Creatinine Glucose POC Glucose 156 H 154 H 167 H Lactic Acid Calcium AST Alkaline Phosphatase Lactate Dehydrogenase Total Creatine Kinase CK-MB (CK-2) C-Reactive Protein Total Protein Albumin Urine WBC (Auto) Urine Creatinine Urine Total Protein Coronavirus (PCR) Crossmatch 06/22/20 06/22/20 06/22/20 11:20 15:27 16:58 WBC RBC Hgb Hct RDW Lymph % (Auto) [place] % (Auto) Eos % (Auto) Lymph # [place] # Seg Neutrophils % Seg Neuts % (Manual) Lymphocytes % (Manual) Seg Neutrophils # Seg Neutrophils # Man Lymphocytes # (Manual) Monocytes # (Manual) D-Dimer Heparin Anti-Xa Level ABG pH 7.206 L POC ABG pCO2 79.9 H POC ABG pO2 ABG pO2 ABG HCO3 ABG O2 Saturation ABG Base Excess ABG Hemoglobin 8.3 L ABG Oxyhemoglobin VBG pH Oxyhemoglobin Sodium Potassium Chloride Carbon Dioxide BUN Creatinine Glucose POC Glucose 181 H 230 H Lactic Acid Calcium AST Alkaline Phosphatase Lactate Dehydrogenase Total Creatine Kinase CK-MB (CK-2) C-Reactive Protein Total Protein Albumin Urine WBC (Auto) Urine Creatinine Urine Total Protein Coronavirus (PCR) Crossmatch 06/22/20 06/23/20 06/23/20 22:26 05:49 05:49 WBC RBC 2.58 L Hgb 7.4 L Hct 23.2 L RDW 17.0 H Lymph % (Auto) [place] % (Auto) 11.2 H Eos % (Auto) Lymph # 1.0 L [place] # Seg Neutrophils % Seg Neuts % (Manual) Lymphocytes % (Manual) Seg Neutrophils # Seg Neutrophils # Man Lymphocytes # (Manual) Monocytes # (Manual) D-Dimer Heparin Anti-Xa Level ABG pH POC ABG pCO2 POC ABG pO2 ABG pO2 ABG HCO3 ABG O2 Saturation ABG Base Excess ABG Hemoglobin ABG Oxyhemoglobin VBG pH Oxyhemoglobin Sodium Potassium Chloride Carbon Dioxide BUN 68 H Creatinine 2.4 H Glucose 198 H POC Glucose 195 H Lactic Acid Calcium AST Alkaline Phosphatase Lactate Dehydrogenase Total Creatine Kinase CK-MB (CK-2) C-Reactive Protein Total Protein Albumin Urine WBC (Auto) Urine Creatinine Urine Total Protein Coronavirus (PCR) Crossmatch 06/23/20 06/23/20 06/23/20 05:50 12:29 12:34 WBC RBC Hgb Hct RDW Lymph % (Auto) [place] % (Auto) Eos % (Auto) Lymph # [place] # Seg Neutrophils % Seg Neuts % (Manual) Lymphocytes % (Manual) Seg Neutrophils # Seg Neutrophils # Man Lymphocytes # (Manual) Monocytes # (Manual) D-Dimer Heparin Anti-Xa Level ABG pH POC ABG pCO2 54.7 H POC ABG pO2 68.8 L ABG pO2 ABG HCO3 ABG O2 Saturation ABG Base Excess ABG Hemoglobin 9.8 L ABG Oxyhemoglobin 92.6 L VBG pH Oxyhemoglobin Sodium Potassium Chloride Carbon Dioxide BUN Creatinine Glucose POC Glucose 202 H 218 H Lactic Acid Calcium AST Alkaline Phosphatase Lactate Dehydrogenase Total Creatine Kinase CK-MB (CK-2) C-Reactive Protein Total Protein Albumin Urine WBC (Auto) Urine Creatinine Urine Total Protein Coronavirus (PCR) Crossmatch 06/23/20 06/23/20 06/24/20 16:02 22:22 01:06 WBC RBC Hgb Hct RDW Lymph % (Auto) [place] % (Auto) Eos % (Auto) Lymph # [place] # Seg Neutrophils % Seg Neuts % (Manual) Lymphocytes % (Manual) Seg Neutrophils # Seg Neutrophils # Man Lymphocytes # (Manual) Monocytes # (Manual) D-Dimer Heparin Anti-Xa Level ABG pH POC ABG pCO2 POC ABG pO2 ABG pO2 ABG HCO3 ABG O2 Saturation ABG Base Excess ABG Hemoglobin ABG Oxyhemoglobin VBG pH Oxyhemoglobin Sodium Potassium Chloride Carbon Dioxide BUN Creatinine Glucose POC Glucose 190 H 166 H 171 H Lactic Acid Calcium AST Alkaline Phosphatase Lactate Dehydrogenase Total Creatine Kinase CK-MB (CK-2) C-Reactive Protein Total Protein Albumin Urine WBC (Auto) Urine Creatinine Urine Total Protein Coronavirus (PCR) Crossmatch 06/24/20 06/24/20 06/24/20 04:48 05:35 11:48 WBC RBC Hgb Hct RDW Lymph % (Auto) [place] % (Auto) Eos % (Auto) Lymph # [place] # Seg Neutrophils % Seg Neuts % (Manual) Lymphocytes % (Manual) Seg Neutrophils # Seg Neutrophils # Man Lymphocytes # (Manual) Monocytes # (Manual) D-Dimer Heparin Anti-Xa Level ABG pH POC ABG pCO2 POC ABG pO2 ABG pO2 ABG HCO3 ABG O2 Saturation ABG Base Excess ABG Hemoglobin ABG Oxyhemoglobin VBG pH Oxyhemoglobin Sodium Potassium Chloride Carbon Dioxide BUN 75 H Creatinine 2.6 H Glucose 179 H POC Glucose 172 H 153 H Lactic Acid Calcium AST Alkaline Phosphatase Lactate Dehydrogenase Total Creatine Kinase CK-MB (CK-2) C-Reactive Protein Total Protein Albumin Urine WBC (Auto) Urine Creatinine Urine Total Protein Coronavirus (PCR) Crossmatch 06/24/20 06/24/20 06/25/20 16:38 21:52 12:00 WBC RBC Hgb Hct RDW Lymph % (Auto) [place] % (Auto) Eos % (Auto) Lymph # [place] # Seg Neutrophils % Seg Neuts % (Manual) Lymphocytes % (Manual) Seg Neutrophils # Seg Neutrophils # Man Lymphocytes # (Manual) Monocytes # (Manual) D-Dimer Heparin Anti-Xa Level ABG pH POC ABG pCO2 POC ABG pO2 ABG pO2 ABG HCO3 ABG O2 Saturation ABG Base Excess ABG Hemoglobin ABG Oxyhemoglobin VBG pH Oxyhemoglobin Sodium Potassium Chloride Carbon Dioxide BUN Creatinine Glucose POC Glucose 123 H 115 H 203 H Lactic Acid Calcium AST Alkaline Phosphatase Lactate Dehydrogenase Total Creatine Kinase CK-MB (CK-2) C-Reactive Protein Total Protein Albumin Urine WBC (Auto) Urine Creatinine Urine Total Protein Coronavirus (PCR) Crossmatch 06/25/20 06/25/20 06/25/20 15:43 16:37 23:02 WBC RBC Hgb Hct RDW Lymph % (Auto) [place] % (Auto) Eos % (Auto) Lymph # [place] # Seg Neutrophils % Seg Neuts % (Manual) Lymphocytes % (Manual) Seg Neutrophils # Seg Neutrophils # Man Lymphocytes # (Manual) Monocytes # (Manual) D-Dimer Heparin Anti-Xa Level ABG pH POC ABG pCO2 POC ABG pO2 ABG pO2 ABG HCO3 ABG O2 Saturation ABG Base Excess ABG Hemoglobin ABG Oxyhemoglobin VBG pH Oxyhemoglobin Sodium Potassium Chloride Carbon Dioxide BUN 71 H Creatinine 1.8 H Glucose 170 H POC Glucose 191 H 126 H Lactic Acid Calcium 8.2 L AST Alkaline Phosphatase Lactate Dehydrogenase Total Creatine Kinase CK-MB (CK-2) C-Reactive Protein Total Protein Albumin Urine WBC (Auto) Urine Creatinine Urine Total Protein Coronavirus (PCR) Crossmatch 06/26/20 06/26/20 06/26/20 06:34 06:34 09:27 WBC RBC 2.41 L Hgb 6.9 L Hct 21.5 L RDW 16.7 H Lymph % (Auto) 10.9 L [place] % (Auto) 9.6 H Eos % (Auto) Lymph # 0.7 L [place] # Seg Neutrophils % 75.4 H Seg Neuts % (Manual) Lymphocytes % (Manual) Seg Neutrophils # Seg Neutrophils # Man Lymphocytes # (Manual) Monocytes # (Manual) D-Dimer Heparin Anti-Xa Level ABG pH POC ABG pCO2 POC ABG pO2 ABG pO2 ABG HCO3 ABG O2 Saturation ABG Base Excess ABG Hemoglobin ABG Oxyhemoglobin VBG pH Oxyhemoglobin Sodium Potassium Chloride Carbon Dioxide BUN 77 H Creatinine 1.9 H Glucose 190 H POC Glucose Lactic Acid Calcium AST Alkaline Phosphatase Lactate Dehydrogenase Total Creatine Kinase CK-MB (CK-2) C-Reactive Protein Total Protein Albumin Urine WBC (Auto) Urine Creatinine Urine Total Protein Coronavirus (PCR) Crossmatch See Detail 06/26/20 06/26/20 06/26/20 12:15 16:28 17:28 WBC RBC Hgb Hct RDW Lymph % (Auto) [place] % (Auto) Eos % (Auto) Lymph # [place] # Seg Neutrophils % Seg Neuts % (Manual) Lymphocytes % (Manual) Seg Neutrophils # Seg Neutrophils # Man Lymphocytes # (Manual) Monocytes # (Manual) D-Dimer Heparin Anti-Xa Level ABG pH POC ABG pCO2 POC ABG pO2 ABG pO2 ABG HCO3 ABG O2 Saturation ABG Base Excess ABG Hemoglobin ABG Oxyhemoglobin VBG pH Oxyhemoglobin Sodium Potassium Chloride Carbon Dioxide BUN Creatinine Glucose POC Glucose 187 H 149 H 189 H Lactic Acid Calcium AST Alkaline Phosphatase Lactate Dehydrogenase Total Creatine Kinase CK-MB (CK-2) C-Reactive Protein Total Protein Albumin Urine WBC (Auto) Urine Creatinine Urine Total Protein Coronavirus (PCR) Crossmatch 06/26/20 06/26/20 06/26/20 18:30 18:30 18:30 WBC RBC 2.87 L Hgb 8.2 L Hct 25.9 L RDW 17.8 H Lymph % (Auto) [place] % (Auto) Eos % (Auto) Lymph # [place] # Seg Neutrophils % Seg Neuts % (Manual) 83.0 H Lymphocytes % (Manual) 8.0 L Seg Neutrophils # Seg Neutrophils # Man Lymphocytes # (Manual) 0.6 L Monocytes # (Manual) D-Dimer Heparin Anti-Xa Level ABG pH POC ABG pCO2 POC ABG pO2 ABG pO2 ABG HCO3 ABG O2 Saturation ABG Base Excess ABG Hemoglobin ABG Oxyhemoglobin VBG pH Oxyhemoglobin Sodium Potassium Chloride Carbon Dioxide BUN 80 H Creatinine 2.1 H Glucose 260 H POC Glucose Lactic Acid 4.30 H* Calcium 8.3 L AST Alkaline Phosphatase Lactate Dehydrogenase Total Creatine Kinase CK-MB (CK-2) C-Reactive Protein Total Protein Albumin Urine WBC (Auto) Urine Creatinine Urine Total Protein Coronavirus (PCR) Crossmatch 06/26/20 06/27/20 06/27/20 18:50 01:00 04:29 WBC RBC Hgb Hct RDW Lymph % (Auto) [place] % (Auto) Eos % (Auto) Lymph # [place] # Seg Neutrophils % Seg Neuts % (Manual) Lymphocytes % (Manual) Seg Neutrophils # Seg Neutrophils # Man Lymphocytes # (Manual) Monocytes # (Manual) D-Dimer Heparin Anti-Xa Level ABG pH 7.296 L POC ABG pCO2 POC ABG pO2 ABG pO2 116.5 H 200.5 H ABG HCO3 28.4 H ABG O2 Saturation 99.3 H ABG Base Excess 3.7 H ABG Hemoglobin 5.6 L ABG Oxyhemoglobin VBG pH Oxyhemoglobin Sodium Potassium Chloride Carbon Dioxide BUN Creatinine Glucose POC Glucose 123 H Lactic Acid Calcium AST Alkaline Phosphatase Lactate Dehydrogenase Total Creatine Kinase CK-MB (CK-2) C-Reactive Protein Total Protein Albumin Urine WBC (Auto) Urine Creatinine Urine Total Protein Coronavirus (PCR) Crossmatch 06/27/20 06/27/20 06/27/20 05:00 05:00 05:00 WBC RBC 2.75 L Hgb 7.9 L Hct 24.3 L RDW 17.1 H Lymph % (Auto) 8.5 L [place] % (Auto) 12.6 H Eos % (Auto) Lymph # 0.7 L [place] # 1.0 H Seg Neutrophils % 77.5 H Seg Neuts % (Manual) Lymphocytes % (Manual) Seg Neutrophils # Seg Neutrophils # Man Lymphocytes # (Manual) Monocytes # (Manual) D-Dimer Heparin Anti-Xa Level ABG pH POC ABG pCO2 POC ABG pO2 ABG pO2 ABG HCO3 ABG O2 Saturation ABG Base Excess ABG Hemoglobin ABG Oxyhemoglobin VBG pH Oxyhemoglobin Sodium Potassium Chloride Carbon Dioxide BUN 80 H Creatinine 2.0 H Glucose 129 H POC Glucose Lactic Acid 0.60 L Calcium 7.9 L AST Alkaline Phosphatase Lactate Dehydrogenase Total Creatine Kinase CK-MB (CK-2) C-Reactive Protein Total Protein Albumin Urine WBC (Auto) Urine Creatinine Urine Total Protein Coronavirus (PCR) Crossmatch 06/27/20 05:23 WBC RBC Hgb Hct RDW Lymph % (Auto) [place] % (Auto) Eos % (Auto) Lymph # [place] # Seg Neutrophils % Seg Neuts % (Manual) Lymphocytes % (Manual) Seg Neutrophils # Seg Neutrophils # Man Lymphocytes # (Manual) Monocytes # (Manual) D-Dimer Heparin Anti-Xa Level ABG pH POC ABG pCO2 POC ABG pO2 ABG pO2 ABG HCO3 ABG O2 Saturation ABG Base Excess ABG Hemoglobin ABG Oxyhemoglobin VBG pH Oxyhemoglobin Sodium Potassium Chloride Carbon Dioxide BUN Creatinine Glucose POC Glucose 109 H Lactic Acid Calcium AST Alkaline Phosphatase Lactate Dehydrogenase Total Creatine Kinase CK-MB (CK-2) C-Reactive Protein Total Protein Albumin Urine WBC (Auto) Urine Creatinine Urine Total Protein Coronavirus (PCR) Crossmatch Chest x-ray: image reviewed Allied health notes reviewed: RT
--- NOTE | 2020-06-27 08:34 | Progress Note ---
Assessment and Plan - Patient Problems (1) Acute kidney injury (AVANI) with acute tubular necrosis (ATN) Current Visit: Yes Status: Acute Plan to address problem: Kidney function started worsening 06/23 and prerenal azotemia was suspected. Hypotensive medications decreased as patient had episodes of hypotension. Kidney function is not significantly changed from yesterda, however may deteriorate in view of recent code blue 2/2 asystoly. Follow-up electrolytes and renal function, maintain MAP > 65mmHg, avoid nephrotoxins, IV contrast (2) Pneumonia due to COVID-19 virus Current Visit: Yes Status: Acute Plan to address problem: Patient has completed 5 days of Remdesevir. Completed course of steroids. (3) Acute hypoxemic respiratory failure Current Visit: Yes Status: Acute Plan to address problem: Being managed by pulmonary. S/p Extubation 06/12, now reintubated on 06/26 s/p code blue. (4) Hyperkalemia Current Visit: Yes Status: Acute Plan to address problem: K normalized (5) Cardiac arrest Current Visit: Yes Status: Acute Plan to address problem: s/p ACLS with eventual ROSC (6) Cardiomyopathy Current Visit: No Status: Acute Qualifiers: Cardiomyopathy type: unspecified Qualified Code(s): I42.9 - Cardiomyopathy, unspecified (7) Type 2 diabetes mellitus with diabetic chronic kidney disease Current Visit: Yes Status: Acute Plan to address problem: DM management as per primary attending Subjective Date of service: 06/27/20 Principal diagnosis: Ac hypoxemic resp failure; COVID-19; pneumonia; CHF; Pulm HTN; OHS; DM II Interval history: Pt s/p code blue last night, s/p ACLS, now intubated, on vent support. Objective - Exam Narrative Exam: Exam reviewed in chart d/t PPE preservation - Vital Signs Vital signs: Vital Signs - 12hr 06/26/20 06/26/20 06/26/20 20:45 20:51 21:01 Temperature Pulse Rate 69 68 78 Respiratory 20 20 13 Rate Blood Pressure 186/67 195/119 O2 Sat by Pulse 100 100 99 Oximetry 06/26/20 06/26/20 06/26/20 21:02 21:15 21:27 Temperature Pulse Rate 71 70 72 Respiratory 20 Rate Blood Pressure 195/119 189/67 O2 Sat by Pulse 100 100 Oximetry 06/26/20 06/26/2006/26/20 21:31 21:45 22:01 Temperature Pulse Rate 72 74 70 Respiratory 15 19 20 Rate Blood Pressure 200/80 190/123 185/83 O2 Sat by Pulse 98 99 97 Oximetry 06/26/20 06/26/20 06/26/20 22:15 22:30 22:45 Temperature Pulse Rate 73 74 75 Respiratory 20 19 20 Rate Blood Pressure 150/60 153/58 155/62 O2 Sat by Pulse 98 98 98 Oximetry 06/26/20 06/26/20 06/26/20 23:00 23:15 23:30 Temperature Pulse Rate 77 75 74 Respiratory 13 19 16 Rate Blood Pressure 144/60 158/65 159/63 O2 Sat by Pulse 98 98 98 Oximetry 06/26/20 06/26/20 06/27/20 23:35 23:45 00:00 Temperature 98.9 F Pulse Rate 74 74 Respiratory 20 20 Rate Blood Pressure 154/63 153/65 O2 Sat by Pulse 98 98 Oximetry 06/27/20 06/27/20 06/27/20 00:14 00:15 00:30 Temperature Pulse Rate 74 74 72 Respiratory 20 19 Rate Blood Pressure 153/65 153/65 152/63 O2 Sat by Pulse 100 98 98 Oximetry 06/27/20 06/27/20 06/27/20 00:45 01:01 01:15 Temperature Pulse Rate 74 73 74 Respiratory 21 19 20 Rate Blood Pressure 158/63 161/63 O2 Sat by Pulse 98 98 100 Oximetry 06/27/20 06/27/20 06/27/20 01:30 01:45 02:00 Temperature Pulse Rate 72 73 79 Respiratory 20 20 17 Rate Blood Pressure 154/61 154/63 157/81 O2 Sat by Pulse 98 98 98 Oximetry 06/27/20 06/27/20 06/27/20 02:15 02:30 02:45 Temperature Pulse Rate 75 77 74 Respiratory 20 17 20 Rate Blood Pressure 163/62 156/66 156/60 O2 Sat by Pulse 98 98 98 Oximetry 06/27/20 06/27/20 06/27/20 03:01 03:15 03:30 Temperature Pulse Rate 77 79 78 Respiratory 20 19 19 Rate Blood Pressure 155/59 153/64 153/61 O2 Sat by Pulse 96 96 96 Oximetry 09/19/20 09/19/20 09/19/20 03:34 03:45 04:00 Temperature 98.6 F Pulse Rate 87 83 Respiratory 18 20 Rate Blood Pressure 153/61 155/63 O2 Sat by Pulse 100 96 Oximetry 06/27/20 06/27/20 06/27/20 04:15 04:30 04:45 Temperature Pulse Rate 87 86 83 Respiratory 23 20 18 Rate Blood Pressure 153/61 165/103 168/66 O2 Sat by Pulse 100 98 98 Oximetry 06/27/20 06/27/20 06/27/20 05:00 05:06 05:15 Temperature Pulse Rate 83 86 84 Respiratory 20 14 Rate Blood Pressure 168/64 168/67 168/64 O2 Sat by Pulse 98 100 100 Oximetry 06/27/20 06/27/20 06/27/20 05:30 05:45 06:00 Temperature Pulse Rate 85 83 83 Respiratory 18 20 18 Rate Blood Pressure 158/61 168/64 153/59 O2 Sat by Pulse 97 100 94 Oximetry 06/27/20 06/27/20 06/27/20 06:15 06:31 06:45 Temperature Pulse Rate 85 84 87 Respiratory 19 19 21 Rate Blood Pressure 158/61 153/60 O2 Sat by Pulse 96 94 95 Oximetry - Lab 06/27/20 05:00 06/27/20 05:00 Most recent lab results ABG pH 7.429 pH Units (7.350-7.450) 06/27/20 04:29 ABG pCO2 43.9 mm Hg 06/27/20 04:29 ABG pO2 200.5 mm Hg (80.0-90.0) H 06/27/20 04:29 ABG HCO3 28.4 mmol/L (20.0-26.0) H 06/27/20 04:29 ABG O2 Saturation 99.3 % (95.0-99.0) H 06/27/20 04:29 Calcium 7.9 mg/dL (8.4-10.2) L 06/27/20 05:00 Urine Creatinine 82.2 mg/dL (0.1-20.0) H 06/06/20 04:00 Urine Sodium 20 mmol/L 06/06/20 04:00 Urine Total Protein 196 mg/dL (5-11.8) H 06/06/20 04:00 Medications & Allergies - Medications Allergies/Adverse Reactions: Allergies No Known Allergies Allergy (Verified 01/21/20 12:28) Home Medications: Home Medications Medication Instructions Recorded Confirmed Last Taken Type AtorvaSTATin [Lipitor] 20 mg PO QHS 05/12/20 05/29/20 Unknown History lisinopriL [Zestril TAB] 40 mg PO QDAY 05/12/20 05/29/20 Unknown History metFORMIN [Glucophage] 850 mg PO BID 05/12/20 05/29/20 Unknown History Acetaminophen [Acetaminophen TAB] 650 mg PO Q4H PRN tablet 05/13/20 05/29/20 Unknown Rx Dicyclomine [Bentyl] 20 mg PO BID #20 tablet 05/13/20 05/29/20 Unknown Rx Famotidine [Pepcid] 20 mg PO BID #30 tablet 05/13/20 05/29/20 Unknown Rx carvediloL [Coreg] 6.25 mg PO BID #60 05/13/20 05/29/20 Unknown Rx Active Medications: Generic Name Dose Route Start Last Admin Trade Name Freq PRN Reason Stop Dose Admin Acetaminophen 650 mg 06/09/20 10:57 06/22/20 11:58 Tylenol FEEDTUBE 650 mg Q6H PRN Administration Fever >101 Amlodipine Besylate 10 mg 06/02/20 11:00 06/26/20 10:09 Amlodipine PO 10 mg DAILY NELSON Administration Lipase/Protease/Amylase 1 each 05/29/20 13:39 06/24/20 22:51 Pancreaze 10,500 Unit FEEDTUBE 1 each PRN PRN Administration For Clogged Feeding Tube Carvedilol 12.5 mg 06/03/20 10:00 06/26/20 21:05 Coreg PO Not Given BID NELSON Clonidine HCl 0.2 mg 06/23/20 22:00 06/26/20 21:05 Catapres PO Not Given Q12HR NELSON Glycopyrrolate 2 mg 06/09/20 14:00 06/26/20 21:04 Glycopyrrolate PO Not Given TID NELSON Heparin Sodium (Porcine) 5,000 unit 06/26/20 22:00 06/26/20 21:14 Heparin SUB-Q 5,000 unit Q12HR NELSON Administration Hydralazine HCl 50 mg 06/03/20 09:00 06/26/20 21:05 Apresoline PO Not Given Q8HR NELSON Hydrophilic Ointment 1 applic 05/28/20 13:49 Vaseline Lip Therapy TP Q2HR PRN Dry Lips Sodium Chloride 1,000 mls @ 75 mls/hr 06/23/20 17:30 06/26/20 21:27 Nacl 0.9% 1000 Ml IV 75 mls/hr DIRECT NELSON Administration Sodium Chloride 500 mls @ 0 mls/hr 06/26/20 08:35 Nacl 0.9% 500 Ml IV 06/27/20 08:34 ONCE NR As Directed Vasopressin 20 unit/ Sodium 101 mls @ 9.09 mls/hr 06/26/20 19:00 06/26/20 19:30 Chloride IV 0 units/min TITR NELSON 0 mls/hr Titration Protocol 0.03 UNITS/MIN Norepinephrine 4 mg in 250 mls @ 7.5 mls/hr 06/26/20 19:00 06/26/20 20:06 Levophed Drip 4 Mg/Ns 250 Ml IV 0 mcg/min TITR NELSON 0 mls/hr Titration Protocol 2 MCG/MIN Phenylephrine HCl 100 mg/ 100 mls @ 3 mls/hr 06/26/20 18:15 Sodium Chloride IV TITR NELSON Protocol 50 MCG/MIN Insulin Glargine 10 units 06/08/20 22:00 06/26/20 21:07 Lantus SUB-Q Not Given QHS [facility] Insulin Human Lispro 0 unit 05/29/20 18:00 06/27/20 05:53 Humalog SUB-Q Not Given Q6H [facility] Protocol Labetalol HCl 20 mg 06/03/20 09:00 06/26/20 21:27 Labetalol IV 20 mg Q4H PRN Administration HYPERTENSION Lansoprazole 30 mg 06/05/20 22:00 06/26/20 21:05 Prevacid Solutab FEEDTUBE Not Given BID [facility] Levetiracetam 500 mg 06/16/20 11:00 06/26/20 21:05 Keppra PO Not Given BID NELSON Lidocaine HCl 15 ml 06/26/20 20:00 Magic Mouthwash PO TID NELSON Metoclopramide HCl 10 mg 06/10/20 20:00 06/26/20 21:26 Reglan IV 10 mg Q6H NELSON Administration Multi-Ingred Cream/Lotion/Oil/Oint 1 applic 05/28/20 13:49 Artificial Tears Ophth Oint OU Q4HR PRN Dry Eye(s) Ondansetron HCl 4 mg 06/02/20 09:00 06/09/20 16:48 Zofran IV 4 mg Q8H PRN Administration Nausea And Vomiting Scopolamine 1 each 06/05/20 14:00 06/26/20 10:08 Transderm-Scop TD 1 each Q3D NELSON Administration Senna 17.6 mg 06/03/20 10:00 06/26/20 21:06 Senokot FEEDTUBE Not Given BID NELSON Simple Syrup 15 ml 05/29/20 13:39 Simple Syrup FEEDTUBE PRN PRN Hypoglycemia Simple Syrup 30 ml 05/29/20 13:39 Simple Syrup FEEDTUBE PRN PRN Hypoglycemia Sodium Bicarbonate 325 mg 05/29/20 13:39 Sodium Bicarbonate FEEDTUBE PRN PRN For Clogged Feeding Tube Sodium Bicarbonate 650 mg 06/06/20 10:00 06/26/20 21:06 Sodium Bicarbonate PO Not Given BID NELSON Sodium Chloride 10 ml 05/28/20 22:00 06/26/20 21:27 Sodium Chloride Flush Syringe 10 Ml IV 10 ml BID NELSON Administration Sodium Chloride 10 ml 05/28/20 19:08 06/16/20 17:50 Sodium Chloride Flush Syringe 10 Ml IV 10 ml PRN PRN Administration LINE FLUSH
[2020-06-27] MEDS: METOCLOPRAMIDE 10 MG/2 ML INJ IV SCH ×4 (09:00→21:19)
[2020-06-27] MEDS: levETIRAcetam 500 MG/5 ML ORAL LIQD PO SCH ×2 (09:10→21:15)
[2020-06-27] MEDS: LANSOPRAZOLE 30 MG SOLUTAB FEEDTUBE SCH ×2 (09:11→21:16)
[2020-06-27] MEDS: GLYCOPYRROLATE 2 MG TAB PO SCH ×3 (09:11→21:15)
[2020-06-27] MEDS: HEPARIN 5,000 UNIT/1 ML VIAL SUB-Q SCH (09:36)
[2020-06-27] MEDS: SODIUM BICARBONATE 650 MG TAB PO SCH ×2 (13:11→21:15)
[2020-06-27] MEDS: MAGIC MOUTHWASH 30ML PO SCH ×2 (13:39→14:04)
[2020-06-27] MEDS: amLODIPine 10 MG TAB PO SCH (13:42)
[2020-06-27] MEDS: cloNIDine 0.2 MG TAB PO SCH ×2 (13:44→21:15)
--- NOTE | 2020-06-27 15:58 | Progress Note ---
Assessment and Plan -- Acute hypoxemic respiratory failure From COVID-19 viral infection, intubated on admission extubated on 06/12/20 then placed on high flow o2 patient developed another respiratory arrest on 06/26 - reintubated CC following -- s/p Cardiac arrest on admission and on 06/26 Cardiology team on board Conservative management as per cardiology --COVID-19 positive 05/28/2020 Completed treatment, ID following --Superficial left cephalic vein DVT/elevated D-dimers[COVID 19] Patient is on heparin drip from 05/29/20 D-dimers improved [id number] s/p heparin drip, Discussed with ID, treated with Eliquis 5 mg twice a day for 1 week[per ID] stop date 06/26/2020 -- Acute metabolic encephalopathy, POA likely from sepsis and s/p cardiac arrest with possible anoxic injury -- Acute renal failure: likely ATN Cr slowly improving Avoid ACEI and other nephrotoxic medications Nephrology following -- Coronavirus infection with b/l PNA Completed remdesivir on 06/02 Completed dexamethasone - Last dose 06/07 ID recs appreciated. --Klebsiella pneumonia: Completed antibiotics --CHF (congestive heart failure) Cardiology following. Ef 45% -- Coffee ground emesis -Stress ulcers Possible stress ulcers, On PPI H/H again dropped - transfuse GI evaluation -- Hypertension; moderate control Continue amlodipine, coreg, clonidine and hydralazine --Mild LFT elevation: likely from COVID-19. cont to monitor -- DVT prophylaxis Eliquis, SCD to bilateral lower extremities while in bed -- Advance care planning Patient is critically ill with multiple medical problems Poor prognosis, family updated and requesting full code Brief history: 64 YO Female with a medical history of HTN, Diastolic CHF, Pulmonary HTN, DM, Obesity Hypoventilation Syndrome presents to ED for evaluation of shortness of breath. As per staff, the EMS was notified for difficulty breathing. Upon arrival to the patient's home the patient was found to be in distress and was subsequently transported to [facility] for further evaluation and care. In route to [facility] the patient developed cardiac arrest and was treated in accordance with ACLS protocol with return of ROSC. Patient was seen and evaluated in the emergency department and was intubated and placed on ventilatory support. Patient admitted to ICU. Critical care team consulted in ED. She was found to have COVID-19 infection and was started on steroids and remdesivir. ID was consulted. Cardiology was consulted for her systolic heart failure and cardiac arrest. Patient completed treatment for COVID-19, then develop superimposed bacterial pneumonia with Klebsiella. She is now extubated, but remains confused and requiring high flow O2 and intermittent BiPAP. 06/01. Patient remains intubated and on ventilatory support today. Patient has multiple organ system failure and has poor prognosis. Patient did not experience significant medical decompensation overnight but no improvement with current therapy. 06/02. Remains intubated. her BP is elevated. Started on nicardipine drip. Cardi ology following. 06/03-06/04. BP is better. Hb stable. Completed remdesivir. ID , Cardiology and Critical care team on board 06/05. Bump in creatinine. I/O reviewed. Nephrology consulted. 06/06. Has slight improvement in renal function. Nephrology on board. On SBT today. Vitals stable. 06/07. Stable renal function. No need for HD as per nephrology. She is making urine. Plan for SBT. 06/08. Off sedation and very lethargic. Her BUN is going up - effect of steroids vs GI bleed. Her hemoglobin remains stable. Will check stool guaiac. Nephrology is following. WBC bumped to 16 today. 06/09: remains intubated, wbc trended up, Cr slightly trending down. cont TF, wean off vent as tolerated. 06/10: Cr trending down, cont to wean off vent as tolerated. 06/10; Cr much improved, cont iv fluid, tolerating tube feeding. stopped vac, iv cefepime for total 10 days. 06/11; creatinine 1.5 today, sodium level has normalized. Continue tube feeding, continue cefepime for 10 days. Continue to wean off as tolerated. 06/12: planned for extubation today 06/13: extubated yesterday, now on Bipap 06/14: patient on Bipap, remains on TF, restraint. cont to follow clinically 06/15: patient on high flow O2,remains on TF, restraint. cont to follow clinically. transfer to [facility] 06/16: Patient remains on high flow O2, intermittently on BiPAP. Tolerating tube feeding. cont to monitor at [facility] 06/17; patient on BiPAP. Remains confused and on tube feeding. Continue to monitor at [facility]. Wean off O2 as tolerated. 06/18; patient feels slightly better on high flow oxygen, minimally communicative, stable to be transferred out of IM to telemetry 06/20; remains hypoxic on high flow oxygen, today noncommunicative sleeping all the time, vital signs noted 06/21; more alert and awake confused at times and pulling, restraint for safety, on high flow oxygen We will request physical therapy once more stable 06/22; PT unable to assess due to safety concerns, remains hypoxic on high flow oxygen, BiPAP at night. minimally communicative 06/23: Remains on high flow O2, order for speech eval, continue tube feeding. C reatinine noted to be elevated today -2.4, increase IV fluid hydration. 06/24: Kidney function started worsening 06/23 -likely from hypotension. patient had episodes of hypotension on 06/22. Kidney function is unchanged from yesterday. No further episodes of hypotension. Follow-up electrolytes and renal function. patient remains on high flow O2 06/25: patient on 15L o2 with n/c. on Bipap at night. follow renal function and follow bmp . Placement not possible as patient unfunded. wean off o2 as tolerated. 06/26: hb 6.9 today, transfuse one unit. wean off from O2 as tolerated. check stool for occult blood. consult GI if stool is positive for blood. 06/27; Code blue called yesterday. ACLS initiated, Pt found to have Asystolic Arrest with eventual return of perfusing cardiac rhythm. patient reintubated during code, transferred to ICU, called family and updated Subjective Date of service: 06/27/20 Principal diagnosis: Ac hypoxemic resp failure; COVID-19; pneumonia; CHF; Pulm HTN; OHS; DM II Interval history: Patient seen and examined Vitals reviewed, intubated Tolerating tube feeding Discussed with RN at the bedside Objective - Exam Narrative Exam: General appearance: Present: mild distress, well-nourished, obese (Morbidly obese), other (intubated) - EENT Eyes: No congestion or icterus - Neck Neck: Present: supple, normal ROM - Respiratory Respiratory effort: normal Respiratory: bilateral: diminished, rhonchi, negative: rales, wheezing - Cardiovascular Rhythm: regular Heart Sounds: Present: S1 & S2 - Extremities Extremities: no ischemia, No edema - Abdominal General gastrointestinal: soft, non-tender, non-distended, normal bowel sounds - Integumentary Integumentary: Present: clear, warm - Psychiatric Psychiatric: other (intubated) - Neurologic Neurologic: other (intubated) - Constitutional Vitals: Vital Signs - 12hr 06/27/20 06/27/20 06/27/20 03:45 04:00 04:15 Temperature Pulse Rate 87 83 87 Respiratory 18 20 23 Rate Blood Pressure 153/61 155/63 153/61 O2 Sat by Pulse 100 96 100 Oximetry 06/27/20 06/27/20 06/27/20 04:30 04:45 05:00 Temperature Pulse Rate 86 83 83 Respiratory 20 18 20 Rate Blood Pressure 165/103 168/66 168/64 O2 Sat by Pulse 98 98 98 Oximetry 06/27/20 06/27/20 06/27/20 05:06 05:15 05:30 Temperature Pulse Rate 86 84 85 Respiratory 14 18 Rate Blood Pressure 168/67 168/64 158/61 O2 Sat by Pulse 100 100 97 Oximetry 06/27/20 06/27/20 06/27/20 05:45 06:00 06:15 Temperature Pulse Rate 83 83 85 Respiratory 20 18 19 Rate Blood Pressure 168/64 153/59 158/61 O2 Sat by Pulse 100 94 96 Oximetry 06/27/20 06/27/20 06/27/20 06:31 06:45 07:00 Temperature Pulse Rate 84 87 86 Respiratory 19 21 20 Rate Blood Pressure 153/60 151/59 O2 Sat by Pulse 94 95 93 Oximetry 06/27/20 06/27/20 06/27/20 07:15 07:30 07:45 Temperature Pulse Rate 87 87 88 Respiratory 21 18 20 Rate Blood Pressure 151/59 156/58 151/59 O2 Sat by Pulse 96 95 97 Oximetry 06/27/20 06/27/20 06/27/20 08:00 08:15 08:30 Temperature 99.7 F H Pulse Rate 89 88 86 Respiratory 22 17 20 Rate Blood Pressure 159/61 159/61 164/63 O2 Sat by Pulse 96 98 96 Oximetry 06/27/20 06/27/20 06/27/20 08:35 08:45 09:00 Temperature Pulse Rate 88 88 87 Respiratory 16 17 Rate Blood Pressure 166/67 164/63 166/67 O2 Sat by Pulse 99 99 97 Oximetry 06/27/20 06/27/20 06/27/20 09:15 09:30 09:46 Temperature Pulse Rate 88 86 86 Respiratory 18 21 16 Rate Blood Pressure 164/63 171/65 171/65 O2 Sat by Pulse 99 96 99 Oximetry 06/27/20 06/27/20 06/27/20 10:00 10:16 10:30 Temperature Pulse Rate 88 86 85 Respiratory 16 17 19 Rate Blood Pressure 171/65 169/60 169/60 O2 Sat by Pulse 99 99 100 Oximetry 06/27/20 06/27/20 06/27/20 10:46 11:00 11:16 Temperature Pulse Rate 85 86 84 Respiratory 15 15 20 Rate Blood Pressure 173/61 173/61 174/62 O2 Sat by Pulse 100 100 100 Oximetry 06/27/20 06/27/20 06/27/20 11:30 11:46 12:00 Temperature Pulse Rate 84 84 86 Respiratory 20 21 20 Rate Blood Pressure 174/62 170/64 170/64 O2 Sat by Pulse 100 100 100 Oximetry 06/27/20 06/27/20 06/27/20 12:15 12:16 12:30 Temperature Pulse Rate 85 83 87 Respiratory 21 20 Rate Blood Pressure 175/63 175/63 175/63 O2 Sat by Pulse 100 100 100 Oximetry 06/27/20 06/27/20 13:42 13:44 Temperature Pulse Rate 87 88 Respiratory Rate Blood Pressure 175/67 176/67 O2 Sat by Pulse Oximetry - Labs CBC & Chem 7: 06/28/20 12:30 06/28/20 12:30 Labs: Abnormal lab results 06/26/20 06/26/20 06/26/20 Range/Units 09:27 16:28 17:28 RBC (3.65-5.03) M/mm3 Hgb (10.1-14.3) gm/dl Hct (30.3-42.9) % RDW (13.2-15.2) % Lymph % (Auto) (13.4-35.0) % [place] % (Auto) (0.0-7.3) % Lymph # (1.2-5.4) K/mm3 [place] # (0.0-0.8) K/mm3 Seg Neutrophils % (40.0-70.0) % Seg Neuts % (Manual) (40.0-70.0) % Lymphocytes % (Manual) (13.4-35.0) % Lymphocytes # (Manual) (1.2-5.4) K/mm3 ABG pH (7.350-7.450) pH Units ABG pO2 (80.0-90.0) mm Hg ABG HCO3 (20.0-26.0) mmol/L ABG O2 Saturation (95.0-99.0) % ABG Base Excess (-2.0-3.0) mmol/L ABG Hemoglobin (12.0-16.0) gm/dl BUN (7-17) mg/dL Creatinine (0.6-1.2) mg/dL Glucose (65-100) mg/dL POC Glucose 149 H 189 H (70-105) Lactic Acid (0.7-2.0) mmol/L Calcium (8.4-10.2) mg/dL Crossmatch See Detail 06/26/20 06/26/20 06/26/20 Range/Units 18:30 18:30 18:30 RBC 2.87 L (3.65-5.03) M/mm3 Hgb 8.2 L (10.1-14.3) gm/dl Hct 25.9 L (30.3-42.9) % RDW 17.8 H (13.2-15.2) % Lymph % (Auto) (13.4-35.0) % [place] % (Auto) (0.0-7.3) % Lymph # (1.2-5.4) K/mm3 [place] # (0.0-0.8) K/mm3 Seg Neutrophils % (40.0-70.0) % Seg Neuts % (Manual) 83.0 H (40.0-70.0) % Lymphocytes % (Manual) 8.0 L (13.4-35.0) % Lymphocytes # (Manual) 0.6 L (1.2-5.4) K/mm3 ABG pH (7.350-7.450) pH Units ABG pO2 (80.0-90.0) mm Hg ABG HCO3 (20.0-26.0) mmol/L ABG O2 Saturation (95.0-99.0) % ABG Base Excess (-2.0-3.0) mmol/L ABG Hemoglobin (12.0-16.0) gm/dl BUN 80 H (7-17) mg/dL Creatinine 2.1 H (0.6-1.2) mg/dL Glucose 260 H (65-100) mg/dL POC Glucose (70-105) Lactic Acid 4.30 H* (0.7-2.0) mmol/L Calcium 8.3 L (8.4-10.2) mg/dL Crossmatch 06/26/20 06/27/20 06/27/20 Range/Units 18:50 01:00 04:29 RBC (3.65-5.03) M/mm3 Hgb (10.1-14.3) gm/dl Hct (30.3-42.9) % RDW (13.2-15.2) % Lymph % (Auto) (13.4-35.0) % [place] % (Auto) (0.0-7.3) % Lymph # (1.2-5.4) K/mm3 [place] # (0.0-0.8) K/mm3 Seg Neutrophils % (40.0-70.0) % Seg Neuts % (Manual) (40.0-70.0) % Lymphocytes % (Manual) (13.4-35.0) % Lymphocytes # (Manual) (1.2-5.4) K/mm3 ABG pH 7.296 L (7.350-7.450) pH Units ABG pO2 116.5 H 200.5 H (80.0-90.0) mm Hg ABG HCO3 28.4 H (20.0-26.0) mmol/L ABG O2 Saturation 99.3 H (95.0-99.0) % ABG Base Excess 3.7 H (-2.0-3.0) mmol/L ABG Hemoglobin 5.6 L (12.0-16.0) gm/dl BUN (7-17) mg/dL Creatinine (0.6-1.2) mg/dL Glucose (65-100) mg/dL POC Glucose 123 H (70-105) Lactic Acid (0.7-2.0) mmol/L Calcium (8.4-10.2) mg/dL Crossmatch 06/27/20 06/27/20 06/27/20 Range/Units 05:00 05:00 05:00 RBC 2.75 L (3.65-5.03) M/mm3 Hgb 7.9 L (10.1-14.3) gm/dl Hct 24.3 L (30.3-42.9) % RDW 17.1 H (13.2-15.2) % Lymph % (Auto) 8.5 L (13.4-35.0) % [place] % (Auto) 12.6 H (0.0-7.3) % Lymph # 0.7 L (1.2-5.4) K/mm3 [place] # 1.0 H (0.0-0.8) K/mm3 Seg Neutrophils % 77.5 H (40.0-70.0) % Seg Neuts % (Manual) (40.0-70.0) % Lymphocytes % (Manual) (13.4-35.0) % Lymphocytes # (Manual) (1.2-5.4) K/mm3 ABG pH (7.350-7.450) pH Units ABG pO2 (80.0-90.0) mm Hg ABG HCO3 (20.0-26.0) mmol/L ABG O2 Saturation (95.0-99.0) % ABG Base Excess (-2.0-3.0) mmol/L ABG Hemoglobin (12.0-16.0) gm/dl BUN 80 H (7-17) mg/dL Creatinine 2.0 H (0.6-1.2) mg/dL Glucose 129 H (65-100) mg/dL POC Glucose (70-105) Lactic Acid 0.60 L (0.7-2.0) mmol/L Calcium 7.9 L (8.4-10.2) mg/dL Crossmatch 06/27/20 Range/Units 05:23 RBC (3.65-5.03) M/mm3 Hgb (10.1-14.3) gm/dl Hct (30.3-42.9) % RDW (13.2-15.2) % Lymph % (Auto) (13.4-35.0) % [place] % (Auto) (0.0-7.3) % Lymph # (1.2-5.4) K/mm3 [place] # (0.0-0.8) K/mm3 Seg Neutrophils % (40.0-70.0) % Seg Neuts % (Manual) (40.0-70.0) % Lymphocytes % (Manual) (13.4-35.0) % Lymphocytes # (Manual) (1.2-5.4) K/mm3 ABG pH (7.350-7.450) pH Units ABG pO2 (80.0-90.0) mm Hg ABG HCO3 (20.0-26.0) mmol/L ABG O2 Saturation (95.0-99.0) % ABG Base Excess (-2.0-3.0) mmol/L ABG Hemoglobin (12.0-16.0) gm/dl BUN (7-17) mg/dL Creatinine (0.6-1.2) mg/dL Glucose (65-100) mg/dL POC Glucose 109 H (70-105) Lactic Acid (0.7-2.0) mmol/L Calcium (8.4-10.2) mg/dL Crossmatch
[2020-06-27 20:05] LABS: Hematocrit 22.1 % (30.3-42.9); Hemoglobin 7.7 gm/dl (10.1-14.3)
[2020-06-27] MEDS: carvediloL 12.5 MG TAB PO SCH (21:14)
[2020-06-27] MEDS: hydrALAZINE 25 MG TAB PO SCH (21:14)
[2020-06-27] MEDS: SENNOSIDES ORAL LIQD 8.8 MG/5 ML ORAL LIQD FEEDTUBE SCH (21:17)
[2020-06-27] MEDS: INSULIN GLARGINE 100 UNITS/ML SUB-Q SCH (22:22)
[2020-06-28] MEDS: METOCLOPRAMIDE 10 MG/2 ML INJ IV SCH ×4 (02:21→21:24)
[2020-06-28 04:34] LABS: ABG Base Excess 3.7 mmol/L (-2.0-3.0); ABG HCO3 28.7 mmol/L (20.0-26.0); ABG PCO2 44.6 mm Hg; ABG PH 7.427 pH Units (7.350-7.450); ABG PO2 102.7 mm Hg (80.0-90.0)
[2020-06-28] MEDS: hydrALAZINE 25 MG TAB PO SCH ×4 (05:22→21:25)
[2020-06-28] MEDS: ACETAMINOPHEN 325 MG/10.15 ML ORAL LIQD UNIT DOSE FEEDTUBE PRN ×2 (05:24→10:19)
[2020-06-28] MEDS: INSULIN LISPRO 100 UNIT/ML VIAL 3 mL SUB-Q SCH ×4 (05:47→05:56)
[2020-06-28] MEDS: SENNOSIDES ORAL LIQD 8.8 MG/5 ML ORAL LIQD FEEDTUBE SCH ×3 (05:47→21:32)
[2020-06-28] MEDS: MAGIC MOUTHWASH 30ML PO SCH ×5 (05:48→21:31)
[2020-06-28] MEDS: carvediloL 12.5 MG TAB PO SCH ×3 (05:49→21:26)
[2020-06-28] MEDS: GLYCOPYRROLATE 2 MG TAB PO SCH ×3 (09:00→21:27)
[2020-06-28] MEDS: SODIUM BICARBONATE 650 MG TAB PO SCH (09:55)
[2020-06-28 10:03] LABS: Basophils % (Auto) 0.6 % (0.0-1.8); Eosinophils # (Auto) 0.2 K/mm3 (0.0-0.4); Eosinophils % (Auto) 3.2 % (0.0-4.3); Hematocrit 22.2 % (30.3-42.9); Hemoglobin 7.4 gm/dl (10.1-14.3); Lymphocytes # (Auto) 1.1 K/mm3 (1.2-5.4); Lymphocytes % (Auto) 15.2 % (13.4-35.0); Mean Corpuscular HGB Conc 33 % (30-34); Mean Corpuscular Volume 88 fl (79-97); Monocytes % (Auto) 13.5 % (0.0-7.3); Platelet Count 401 K/mm3 (140-440); Red Blood Count 2.53 M/mm3 (3.65-5.03); Red Cell Distribution Width 16.8 % (13.2-15.2)
[2020-06-28] MEDS: LANSOPRAZOLE 30 MG SOLUTAB FEEDTUBE SCH ×2 (10:20→21:25)
[2020-06-28 10:21] LABS: Albumin 2.1 g/dL (3.9-5); Calcium 7.9 mg/dL (8.4-10.2)
[2020-06-28] MEDS: levETIRAcetam 500 MG/5 ML ORAL LIQD PO SCH ×2 (10:21→21:26)
[2020-06-28] MEDS: amLODIPine 10 MG TAB PO SCH (10:21)
--- NOTE | 2020-06-28 10:35 | Progress Note ---
Assessment and Plan - Patient Problems (1) Acute kidney injury (AVANI) with acute tubular necrosis (ATN) Current Visit: Yes Status: Acute Plan to address problem: Pt s/p cardiac arrest/code blue and ACLS, however renal function remains stable, Cr at 1.5 today, remains non-oliguric. Follow-up electrolytes and renal function, maintain MAP > 65mmHg, avoid nephrotoxins, IV contrast (2) Pneumonia due to COVID-19 virus Current Visit: Yes Status: Acute Plan to address problem: Patient has completed 5 days of Remdesevir. Completed course of steroids. (3) Acute hypoxemic respiratory failure Current Visit: Yes Status: Acute Plan to address problem: Being managed by pulmonary. S/p Extubation 06/12, now reintubated on 06/26 s/p code blue. (4) Hyperkalemia Current Visit: Yes Status: Acute Plan to address problem: K normalized (5) Cardiac arrest Current Visit: Yes Status: Acute Plan to address problem: s/p ACLS with eventual ROSC (6) Cardiomyopathy Current Visit: No Status: Acute Qualifiers: Cardiomyopathy type: unspecified Qualified Code(s): I42.9 - Cardiomyopathy, unspecified (7) Type 2 diabetes mellitus with diabetic chronic kidney disease Current Visit: Yes Status: Acute Plan to address problem: DM management as per primary attending Subjective Date of service: 06/28/20 Principal diagnosis: Ac hypoxemic resp failure; COVID-19; pneumonia; CHF; Pulm HTN; OHS; DM II Interval history: Pt s/p code blue last on 06/26, s/p ACLS, now intubated, on vent support. Objective - Exam Narrative Exam: Exam reviewed in chart d/t PPE preservation - Vital Signs Vital signs: Vital Signs - 12hr 06/27/20 06/27/20 06/27/20 22:46 23:00 23:16 Temperature Pulse Rate 83 81 83 Pulse Rate [ From Monitor] Respiratory 19 13 13 Rate Blood Pressure 165/98 165/98 136/57 O2 Sat by Pulse 99 100 99 Oximetry 06/27/20 06/27/20 06/28/20 23:30 23:46 00:00 Temperature Pulse Rate 83 83 80 Pulse Rate [ 84 From Monitor] Respiratory 14 14 15 Rate Blood Pressure 136/57 136/57 136/57 O2 Sat by Pulse 100 100 100 Oximetry 0906/28/20 06/28/20 00:16 00:30 00:46 Temperature Pulse Rate 83 83 83 Pulse Rate [ From Monitor] Respiratory 14 14 13 Rate Blood Pressure 140/61 140/61 145/63 O2 Sat by Pulse 100 100 100 Oximetry 06/28/20 06/28/20 06/28/20 00:49 01:00 01:16 Temperature Pulse Rate 86 80 82 Pulse Rate [ From Monitor] Respiratory 20 16 Rate Blood Pressure 147/62 145/63 155/63 O2 Sat by Pulse 100 100 100 Oximetry 06/28/20 06/28/20 06/28/20 01:30 01:46 02:00 Temperature Pulse Rate 87 81 85 Pulse Rate [ From Monitor] Respiratory 15 13 14 Rate Blood Pressure 155/63 152/61 152/61 O2 Sat by Pulse 100 100 100 Oximetry 06/28/20 06/28/20 06/28/20 02:16 02:30 02:46 Temperature Pulse Rate 84 87 89 Pulse Rate [ From Monitor] Respiratory 17 13 15 Rate Blood Pressure 145/54 145/54 144/55 O2 Sat by Pulse 100 100 100 Oximetry 06/28/20 06/28/20 06/28/20 03:00 03:16 03:30 Temperature Pulse Rate 88 82 80 Pulse Rate [ From Monitor] Respiratory 17 20 20 Rate Blood Pressure 144/55 156/69 156/69 O2 Sat by Pulse 100 100 99 Oximetry 06/28/20 06/28/20 06/28/20 03:46 03:51 03:55 Temperature 101.6 F H Pulse Rate 92 H 85 Pulse Rate [ From Monitor] Respiratory 12 Rate Blood Pressure 135/53 135/53 O2 Sat by Pulse 99 100 Oximetry 06/28/20 06/28/20 06/28/20 04:00 04:16 04:30 Temperature Pulse Rate 85 83 88 Pulse Rate [ 91 H From Monitor] Respiratory 13 13 18 Rate Blood Pressure 135/53 135/53 135/53 O2 Sat by Pulse 100 100 100 Oximetry 06/28/20 06/28/20 06/28/20 04:46 05:00 05:16 Temperature Pulse Rate 88 84 83 Pulse Rate [ From Monitor] Respiratory 11 L 16 21 Rate Blood Pressure 152/61 152/61 144/53 O2 Sat by Pulse 100 100 99 Oximetry 06/28/20 06/28/20 06/28/20 05:22 05:30 05:46 Temperature Pulse Rate 85 87 84 Pulse Rate [ From Monitor] Respiratory 11 L 20 Rate Blood Pressure 144/73 144/53 161/65 O2 Sat by Pulse 99 100 Oximetry 06/28/20 06/28/20 06/28/20 06:00 06:16 06:30 Temperature Pulse Rate 86 89 86 Pulse Rate [ From Monitor] Respiratory 16 13 15 Rate Blood Pressure 161/65 151/68 151/68 O2 Sat by Pulse 99 100 99 Oximetry 06/28/20 06/28/20 06/28/20 06:46 07:00 07:16 Temperature Pulse Rate 84 94 H 84 Pulse Rate [ From Monitor] Respiratory 20 20 19 Rate Blood Pressure 144/53 144/53 158/65 O2 Sat by Pulse 99 98 99 Oximetry 06/28/20 06/28/20 06/28/20 07:30 07:38 07:46 Temperature Pulse Rate 88 82 82 Pulse Rate [ From Monitor] Respiratory 20 20 Rate Blood Pressure 158/65 153/62 153/62 O2 Sat by Pulse 99 98 99 Oximetry 06/28/20 06/28/20 06/28/20 08:00 10:21 10:23 Temperature Pulse Rate 86 85 86 Pulse Rate [ From Monitor] Respiratory 19 Rate Blood Pressure 153/62 163/69 163/69 O2 Sat by Pulse 99 Oximetry - Lab 06/28/20 09:47 06/28/20 09:47 Most recent lab results ABG pH 7.427 pH Units (7.350-7.450) 06/28/20 04:05 ABG pCO2 44.6 mm Hg 06/28/20 04:05 ABG pO2 102.7 mm Hg (80.0-90.0) H 06/28/20 04:05 ABG HCO3 28.7 mmol/L (20.0-26.0) H 06/28/20 04:05 ABG O2 Saturation Not Reportable 06/28/20 04:05 Calcium 7.9 mg/dL (8.4-10.2) L 06/28/20 09:47 Urine Creatinine 82.2 mg/dL (0.1-20.0) H 06/06/20 04:00 Urine Sodium 20 mmol/L 06/06/20 04:00 Urine Total Protein 196 mg/dL (5-11.8) H 06/06/20 04:00 Medications & Allergies - Medications Allergies/Adverse Reactions: Allergies No Known Allergies Allergy (Verified 01/21/20 12:28) Home Medications: Home Medications Medication Instructions Recorded Confirmed Last Taken Type AtorvaSTATin [Lipitor] 20 mg PO QHS 05/12/20 05/29/20 Unknown History lisinopriL [Zestril TAB] 40 mg PO QDAY 05/12/20 05/29/20 Unknown History metFORMIN [Glucophage] 850 mg PO BID 05/12/20 05/29/20 Unknown History Acetaminophen [Acetaminophen TAB] 650 mg PO Q4H PRN tablet 05/13/20 05/29/20 Unknown Rx Dicyclomine [Bentyl] 20 mg PO BID #20 tablet 05/13/20 05/29/20 Unknown Rx Famotidine [Pepcid] 20 mg PO BID #30 tablet 05/13/20 05/29/20 Unknown Rx carvediloL [Coreg] 6.25 mg PO BID #60 05/13/20 05/29/20 Unknown Rx Active Medications: Generic Name Dose Route Start Last Admin Trade Name Freq PRN Reason Stop Dose Admin Acetaminophen 650 mg 06/09/20 10:57 06/28/20 10:19 Tylenol FEEDTUBE 650 mg Q6H PRN Administration Fever >101 Amlodipine Besylate 10 mg 06/02/20 11:00 06/28/20 10:21 Amlodipine PO 10 mg DAILY NELSON Administration Lipase/Protease/Amylase 1 each 05/29/20 13:39 06/24/20 22:51 Pancreazhoracio Lawson 10,500 Unit FEEDTUBE 1 each PRN PRN Administration For Clogged Feeding Tube Carvedilol 12.5 mg 06/03/20 10:00 06/28/20 10:23 Coreg PO 12.5 mg BID NELSON Administration Clonidine HCl 0.2 mg 06/23/20 22:00 06/27/20 21:15 Catapres PO 0.2 mg Q12HR NELSON Administration Glycopyrrolate 2 mg 06/09/20 14:00 06/28/20 09:00 Glycopyrrolate PO 2 mg TID NELSON Administration Hydralazine HCl 50 mg 06/03/20 09:00 06/28/20 05:47 Apresoline PO Not Given Q8HR NELSON Hydrophilic Ointment 1 applic 05/28/20 13:49 Vaseline Lip Therapy TP Q2HR PRN Dry Lips Sodium Chloride 1,000 mls @ 75 mls/hr 06/23/20 17:30 06/26/20 21:27 Nacl 0.9% 1000 Ml IV 75 mls/hr DIRECT NELSON Administration Vasopressin 20 unit/ Sodium 101 mls @ 9.09 mls/hr 06/26/20 19:00 06/26/20 19:30 Chloride IV 0 units/min TITR NELSON 0 mls/hr Titration Protocol 0.03 UNITS/MIN Norepinephrine 4 mg in 250 mls @ 7.5 mls/hr 06/26/20 19:00 06/26/20 20:06 Levophed Drip 4 Mg/Ns 250 Ml IV 0 mcg/min TITR NELSON 0 mls/hr Titration Protocol 2 MCG/MIN Phenylephrine HCl 100 mg/ 100 mls @ 3 mls/hr 06/26/20 18:15 Sodium Chloride IV TITR NELSON Protocol 50 MCG/MIN Insulin Glargine 10 units 06/08/20 22:00 06/27/20 22:22 Lantus SUB-Q 10 units QHS NELSON Administration Insulin Human Lispro 0 unit 05/29/20 18:00 06/28/20 05:56 Humalog SUB-Q Not Given Q6H NELSON Protocol Labetalol HCl 20 mg 06/03/20 09:00 06/26/20 21:27 Labetalol IV 20 mg Q4H PRN Administration HYPERTENSION Lansoprazole 30 mg 06/05/20 22:00 06/28/20 10:20 Prevacid Solutab FEEDTUBE 30 mg BID NELSON Administration Levetiracetam 500 mg 06/16/20 11:00 06/28/20 10:21 Keppra PO 500 mg BID NELSON Administration Lidocaine HCl 15 ml 06/26/20 20:00 06/28/20 09:00 Magic Mouthwash PO 15 ml TID NELSON Administration Metoclopramide HCl 10 mg 06/10/20 20:00 06/28/20 09:00 Reglan IV 10 mg Q6H NELSON Administration Multi-Ingred Cream/Lotion/Oil/Oint 1 applic 05/28/20 13:49 Artificial Tears Ophth Oint OU Q4HR PRN Dry Eye(s) Ondansetron HCl 4 mg 06/02/20 09:00 06/09/20 16:48 Zofran IV 4 mg Q8H PRN Administration Nausea And Vomiting Scopolamine 1 each 06/05/20 14:00 06/26/20 10:08 Transderm-Scop TD 1 each Q3D NELSON Administration Senna 17.6 mg 06/03/20 10:00 06/28/20 09:16 Senokot FEEDTUBE 17.6 mg BID NELSON Administration Simple Syrup 15 ml 05/29/20 13:39 Simple Syrup FEEDTUBE PRN PRN Hypoglycemia Simple Syrup 30 ml 05/29/20 13:39 Simple Syrup FEEDTUBE PRN PRN Hypoglycemia Sodium Bicarbonate 325 mg 05/29/20 13:39 Sodium Bicarbonate FEEDTUBE PRN PRN For Clogged Feeding Tube Sodium Bicarbonate 650 mg 06/06/20 10:00 06/28/20 09:55 Sodium Bicarbonate PO Not Given BID NELSON Sodium Chloride 10 ml 05/28/20 22:00 06/28/20 10:24 Sodium Chloride Flush Syringe 10 Ml IV 10 ml BID NELSON Administration Sodium Chloride 10 ml 05/28/20 19:08 06/16/20 17:50 Sodium Chloride Flush Syringe 10 Ml IV 10 ml PRN PRN Administration LINE FLUSH
--- NOTE | 2020-06-28 10:40 | Progress Note ---
Assessment and Plan Cardiopulmoanry arrest 06/26/2020 with ROSC Acute hypoxemic respiratory failure , extubated now re-intubated Anemia s/p PRBC Severe COVID infection Multifocal pneumonia Morbid obesity Acute toxic metabolic encephalopathy AVANI secondary to COVID/vasomotor nephropathy Bilateral pulmonary edema. Bilateral pleural effusions. History of congestive heart failure. History of pulmonary hypertension. History of hypertension. Diabetes. Obesity hypoventilation syndrome. Oropharyngeal dysphagia. Get blood cultures, urine cultures and tracheal aspirate fro cultures Empirically start Cefepime, Vancomycin Re-consult ID service Discussed in detail with the son who is visiting from [place]. he is at the bed side. Answered all his questions. Stop IVF, fluid conservative measures as tolerated by renal function and hemodynamcis VTE prophylaxis - heparin infusion on hold secondary to rectal bleeding - VAP bundle addressed -Aspiration precautions, HOB >40 -lung protective strategies-ARDS. net - continue bronchodilators with pulmonary hygiene per RT - wean per pulmonary driven protocols otherwise - continue to avoid benzodiazepines, reduce the possibility of delirium - prn analgesia per CPOT score - Continue to wean supplemental oxygen for target O2 sats > 92% -Hold all sedation for now to allow for assessment of neurologic status post cardiopulmonary arrest - conservative fluid management measures as tolerated by hemodynamics and renal function - Bronchodilators with pulmonary hygiene per RT - Accuchecks with glycemic control per SSI (While critically ill target blood glucose of 140-180 mg/dL; avoid hypoglycemia) - Maintenance of sleep-wake cycle, avoid delirium - Avoid nephrotoxins, closely monitor renal function, dose all medications for renal function - Aspiration precautions, HOB >40 - Stress ulcer prophylaxis -Famotidine - Mobility protocol, off loading and skin assessment for pressure ulcer prevention - Monitor hemodynamics closely - Supportive transfusions as indicated to keep HgB >7g/dL COVID SPECIFIC INTERVENTIONS -Airborne, contact isolation for COVID per facility protocols - s/p Remdesivir -IV steroids-Dexamethasone -Trend d-dimer,and other inflammatory markers per facility protocol -Convalescent plasma therapy per facility protocol -Continue all supportive care Discussed with the ICU team-RT,RN, Life threatening condition- Cardiopulmaonry arrest with ROSC, SepsisCOVID 19 ARDS acute hypoxemic respiratory failure on MVS Mortality/Morbidity- High Complexity of medical decision making- High CONDITION: CRITICAL PROGNOSIS: GUARDED CODE STATUS: FULL CODE The high probability of a clinically significant, sudden or life-threatening deterioration of the [respiratory & neurology, renal ] system(s) required my full and direct attention, intervention and personal management. The aggregate critical care time was [34] minutes without overlap. Time includes spent on; [x] Data Review and interpretation [x] Patient assessment and monitoring of vital signs [x] Documentation [x] Medication orders and management Subjective Date of service: 06/28/20 Principal diagnosis: Ac hypoxemic resp failure; COVID-19; pneumonia; CHF; Pulm HTN; OHS; DM II Interval history: Patient is seen today for: Ac hypoxemic resp failure; Coronavirus-19 infection; pneumonia; Pulmonary edema; Bilateral pleural effusions; CHF; Morbid obesity; pulmonary hypertension; OHS; DM II Seen and examined at bedside; 24hour events reviewed; nursing and respiratory care staff consulted; High grade fevers overnight, bloody rectal output with FOBT positive, remains critically ill on MVS Not on any vasopressors at this time. Objective Vital Signs - 12hr 06/27/20 06/27/20 06/27/20 22:46 23:00 23:16 Temperature Pulse Rate 83 81 83 Pulse Rate [ From Monitor] Respiratory 19 13 13 Rate Blood Pressure 165/98 165/98 136/57 O2 Sat by Pulse 99 100 99 Oximetry 06/27/20 06/27/20 06/28/20 23:30 23:46 00:00 Temperature Pulse Rate 83 83 80 Pulse Rate [ 84 From Monitor] Respiratory 14 14 15 Rate Blood Pressure 136/57 136/57 136/57 O2 Sat by Pulse 100 100 100 Oximetry 06/28/20 06/28/20 06/28/20 00:16 00:30 00:46 Temperature Pulse Rate 83 83 83 Pulse Rate [ From Monitor] Respiratory 14 14 13 Rate Blood Pressure 140/61 140/61 145/63 O2 Sat by Pulse 100 100 100 Oximetry 06/28/20 06/28/20 06/28/20 00:49 01:00 01:16 Temperature Pulse Rate 86 80 82 Pulse Rate [ From Monitor] Respiratory 20 16 Rate Blood Pressure 147/62 145/63 155/63 O2 Sat by Pulse 100 100 100 Oximetry 06/28/20 06/28/20 06/28/20 01:30 01:46 02:00 Temperature Pulse Rate 87 81 85 Pulse Rate [ From Monitor] Respiratory 15 13 14 Rate Blood Pressure 155/63 152/61 152/61 O2 Sat by Pulse 100 100 100 Oximetry 06/28/20 06/28/20 06/28/20 02:16 02:30 02:46 Temperature Pulse Rate 84 87 89 Pulse Rate [ From Monitor] Respiratory 17 13 15 Rate Blood Pressure 145/54 145/54 144/55 O2 Sat by Pulse 100 100 100 Oximetry 06/28/20 06/28/20 06/28/20 03:00 03:16 03:30 Temperature Pulse Rate 88 82 80 Pulse Rate [ From Monitor] Respiratory 17 20 20 Rate Blood Pressure 144/55 156/69 156/69 O2 Sat by Pulse 100 100 99 Oximetry 06/28/20 06/28/20 06/28/20 03:46 03:51 03:55 Temperature 101.6 F H Pulse Rate 92 H 85 Pulse Rate [ From Monitor] Respiratory 12 Rate Blood Pressure 135/53 135/53 O2 Sat by Pulse 99 100 Oximetry 06/28/20 06/28/20 06/28/20 04:00 04:16 04:30 Temperature Pulse Rate 85 83 88 Pulse Rate [ 91 H From Monitor] Respiratory 13 13 18 Rate Blood Pressure 135/53 135/53 135/53 O2 Sat by Pulse 100 100 100 Oximetry 06/28/20 06/28/20 06/28/20 04:46 05:00 05:16 Temperature Pulse Rate 88 84 83 Pulse Rate [ From Monitor] Respiratory 11 L 16 21 Rate Blood Pressure 152/61 152/61 144/53 O2 Sat by Pulse 100 100 99 Oximetry 06/28/20 06/28/20 06/28/20 05:22 05:30 05:46 Temperature Pulse Rate 85 87 84 Pulse Rate [ From Monitor] Respiratory 11 L 20 Rate Blood Pressure 144/73 144/53 161/65 O2 Sat by Pulse 99 100 Oximetry 06/28/20 06/28/20 06/28/20 06:00 06:16 06:30 Temperature Pulse Rate 86 89 86 Pulse Rate [ From Monitor] Respiratory 16 13 15 Rate Blood Pressure 161/65 151/68 151/68 O2 Sat by Pulse 99 100 99 Oximetry 06/28/20 06/28/20 06/28/20 06:46 07:00 07:16 Temperature Pulse Rate 84 94 H 84 Pulse Rate [ From Monitor] Respiratory 20 20 19 Rate Blood Pressure 144/53 144/53 158/65 O2 Sat by Pulse 99 98 99 Oximetry 06/28/20 06/28/20 06/28/20 07:30 07:38 07:46 Temperature Pulse Rate 88 82 82 Pulse Rate [ From Monitor] Respiratory 20 20 Rate Blood Pressure 158/65 153/62 153/62 O2 Sat by Pulse 99 98 99 Oximetry 06/28/20 06/28/20 06/28/20 08:00 10:21 10:23 Temperature Pulse Rate 86 85 86 Pulse Rate [ From Monitor] Respiratory 19 Rate Blood Pressure 153/62 163/69 163/69 O2 Sat by Pulse 99 Oximetry Constitutional: lethargic, other (ETT at 22cm at the lip, riding set rate) Eyes: non-icteric ENT: oropharynx dry Neck: supple, no lymphadenopathy, no JVD, other (large neck circumference) Effort: mildly labored Ascultation: Bilateral: clear, diminished breath sounds, rales, rhonchi (scant) Percussion: Bilateral: not dull Cardiovascular: regular rate and rhythm, other (S1,S2) Gastrointestinal: normoactive bowel sounds, soft, non-tender, non-distended Integumentary: normal Extremities: no cyanosis, no edema, pink and warm, pulses normal, no ischemia or petechiae Neurologic: other (unresponsive) Psychiatric: other (unable to assess re: AMS) CBC and BMP: 06/29/20 04:38 06/29/20 04:38 ABG, PT/INR, D-dimer: ABG ABG pH 7.427 pH Units (7.350-7.450) 06/28/20 04:05 POC ABG pCO2 54.7 mmHg (32.0-48.0) H 06/23/20 12:34 ABG pCO2 44.6 mm Hg 06/28/20 04:05 POC ABG pO2 68.8 mmHg (83-108) L 06/23/20 12:34 ABG pO2 102.7 mm Hg (80.0-90.0) H 06/28/20 04:05 POC ABG HCO3 30.2 06/23/20 12:34 ABG O2 Saturation Not Reportable 06/28/20 04:05 PT/INR, D-dimer PT 14.2 Sec. (12.2-14.9) 05/29/20 15:10 INR 1.08 (0.87-1.13) 05/29/20 15:10 D-Dimer 414.52 ng/mlDDU (0-234) H 06/04/20 04:19 Abnormal lab findings: Abnormal Labs 05/28/20 05/28/20 05/28/20 13:29 13:47 13:47 WBC RBC Hgb Hct RDW 15.3 H Lymph % (Auto) [place] % (Auto) Eos % (Auto) Lymph # [place] # Seg Neutrophils % Seg Neuts % (Manual) Lymphocytes % (Manual) Seg Neutrophils # Seg Neutrophils # Man Lymphocytes # (Manual) Monocytes # (Manual) D-Dimer Heparin Anti-Xa Level ABG pH POC ABG pCO2 POC ABG pO2 ABG pO2 ABG HCO3 ABG O2 Saturation ABG Base Excess ABG Hemoglobin ABG Oxyhemoglobin VBG pH Oxyhemoglobin Sodium Potassium 6.6 H* Chloride 109.2 H Carbon Dioxide 17 L BUN 29 H Creatinine 1.3 H Glucose 265 H POC Glucose 248 H Lactic Acid Calcium 8.1 L AST 63 H Alkaline Phosphatase Lactate Dehydrogenase Total Creatine Kinase 301 H CK-MB (CK-2) 4.3 H C-Reactive Protein Total Protein 5.4 L Albumin 2.6 L Urine WBC (Auto) Urine Creatinine Urine Total Protein Coronavirus (PCR) Crossmatch 05/28/20 05/28/20 05/28/20 13:47 13:47 14:46 WBC RBC Hgb Hct RDW Lymph % (Auto) [place] % (Auto) Eos % (Auto) Lymph # [place] # Seg Neutrophils % Seg Neuts % (Manual) Lymphocytes % (Manual) Seg Neutrophils # Seg Neutrophils # Man Lymphocytes # (Manual) Monocytes # (Manual) D-Dimer Heparin Anti-Xa Level ABG pH POC ABG pCO2 POC ABG pO2 ABG pO2 ABG HCO3 ABG O2 Saturation ABG Base Excess ABG Hemoglobin ABG Oxyhemoglobin VBG pH 7.152 L* Oxyhemoglobin Sodium Potassium 7.2 H* Chloride Carbon Dioxide BUN Creatinine Glucose POC Glucose Lactic Acid 3.40 H* Calcium AST Alkaline Phosphatase Lactate Dehydrogenase Total Creatine Kinase CK-MB (CK-2) C-Reactive Protein Total Protein Albumin Urine WBC (Auto) Urine Creatinine Urine Total Protein Coronavirus (PCR) Crossmatch 05/28/20 05/28/20 05/28/20 15:33 15:33 15:51 WBC RBC Hgb Hct RDW Lymph % (Auto) [place] % (Auto) Eos % (Auto) Lymph # [place] # Seg Neutrophils % Seg Neuts % (Manual) Lymphocytes % (Manual) Seg Neutrophils # Seg Neutrophils # Man Lymphocytes # (Manual) Monocytes # (Manual) D-Dimer 8780.43 H Heparin Anti-Xa Level ABG pH 7.284 L POC ABG pCO2 POC ABG pO2 ABG pO2 273.0 H ABG HCO3 ABG O2 Saturation 99.4 H ABG Base Excess -6.1 L ABG Hemoglobin 17.2 H ABG Oxyhemoglobin VBG pH Oxyhemoglobin Sodium Potassium Chloride Carbon Dioxide BUN Creatinine Glucose 152 H POC Glucose Lactic Acid Calcium AST Alkaline Phosphatase Lactate Dehydrogenase 365 H Total Creatine Kinase CK-MB (CK-2) C-Reactive Protein Total Protein Albumin Urine WBC (Auto) Urine Creatinine Urine Total Protein Coronavirus (PCR) Crossmatch 05/28/20 05/28/20 05/28/20 16:30 20:41 23:20 WBC RBC Hgb Hct RDW Lymph % (Auto) [place] % (Auto) Eos % (Auto) Lymph # [place] # Seg Neutrophils % Seg Neuts % (Manual) Lymphocytes % (Manual) Seg Neutrophils # Seg Neutrophils # Man Lymphocytes # (Manual) Monocytes # (Manual) D-Dimer Heparin Anti-Xa Level ABG pH POC ABG pCO2 POC ABG pO2 ABG pO2 ABG HCO3 ABG O2 Saturation ABG Base Excess ABG Hemoglobin ABG Oxyhemoglobin VBG pH Oxyhemoglobin Sodium Potassium Chloride Carbon Dioxide BUN Creatinine Glucose POC Glucose 225 H 224 H Lactic Acid Calcium AST Alkaline Phosphatase Lactate Dehydrogenase Total Creatine Kinase CK-MB (CK-2) C-Reactive Protein Total Protein Albumin Urine WBC (Auto) 17.0 H Urine Creatinine Urine Total Protein Coronavirus (PCR) Crossmatch 05/28/20 05/29/20 05/29/20 Unknown 04:35 04:43 WBC RBC 3.48 L Hgb 9.8 L Hct 29.4 L RDW 16.0 H Lymph % (Auto) 7.4 L [place] % (Auto) Eos % (Auto) Lymph # 0.7 L [place] # Seg Neutrophils % 89.1 H Seg Neuts % (Manual) Lymphocytes % (Manual) Seg Neutrophils # 8.1 H Seg Neutrophils # Man Lymphocytes # (Manual) Monocytes # (Manual) D-Dimer Heparin Anti-Xa Level ABG pH POC ABG pCO2 POC ABG pO2 ABG pO2 ABG HCO3 19.3 L ABG O2 Saturation ABG Base Excess -4.5 L ABG Hemoglobin 9.7 L ABG Oxyhemoglobin VBG pH Oxyhemoglobin Sodium Potassium Chloride Carbon Dioxide BUN Creatinine Glucose POC Glucose Lactic Acid Calcium AST Alkaline Phosphatase Lactate Dehydrogenase Total Creatine Kinase CK-MB (CK-2) C-Reactive Protein Total Protein Albumin Urine WBC (Auto) Urine Creatinine Urine Total Protein Coronavirus (PCR) Positive A Crossmatch 05/29/20 05/29/20 05/29/20 04:43 15:10 17:17 WBC RBC Hgb 9.3 L Hct 28.7 L RDW Lymph % (Auto) [place] % (Auto) Eos % (Auto) Lymph # [place] # Seg Neutrophils % Seg Neuts % (Manual) Lymphocytes % (Manual) Seg Neutrophils # Seg Neutrophils # Man Lymphocytes # (Manual) Monocytes # (Manual) D-Dimer Heparin Anti-Xa Level ABG pH POC ABG pCO2 POC ABG pO2 ABG pO2 ABG HCO3 ABG O2 Saturation ABG Base Excess ABG Hemoglobin ABG Oxyhemoglobin VBG pH Oxyhemoglobin Sodium Potassium Chloride 110.2 H Carbon Dioxide 18 L BUN 32 H Creatinine 1.4 H Glucose 180 H POC Glucose 147 H Lactic Acid Calcium AST Alkaline Phosphatase Lactate Dehydrogenase Total Creatine Kinase CK-MB (CK-2) C-Reactive Protein Total Protein Albumin Urine WBC (Auto) Urine Creatinine Urine Total Protein Coronavirus (PCR) Crossmatch 05/30/20 05/30/20 05/30/20 00:08 00:12 04:15 WBC RBC Hgb Hct RDW Lymph % (Auto) [place] % (Auto) Eos % (Auto) Lymph # [place] # Seg Neutrophils % Seg Neuts % (Manual) Lymphocytes % (Manual) Seg Neutrophils # Seg Neutrophils # Man Lymphocytes # (Manual) Monocytes # (Manual) D-Dimer Heparin Anti-Xa Level 0.71 H ABG pH 7.460 H POC ABG pCO2 POC ABG pO2 ABG pO2 106.0 H ABG HCO3 18.9 L ABG O2 Saturation ABG Base Excess -4.4 L ABG Hemoglobin 6.8 L ABG Oxyhemoglobin VBG pH Oxyhemoglobin Sodium Potassium Chloride Carbon Dioxide BUN Creatinine Glucose POC Glucose 195 H Lactic Acid Calcium AST Alkaline Phosphatase Lactate Dehydrogenase Total Creatine Kinase CK-MB (CK-2) C-Reactive Protein Total Protein Albumin Urine WBC (Auto) Urine Creatinine Urine Total Protein Coronavirus (PCR) Crossmatch 05/30/20 05/30/20 05/30/20 06:07 08:37 12:33 WBC RBC Hgb Hct RDW Lymph % (Auto) [place] % (Auto) Eos % (Auto) Lymph # [place] # Seg Neutrophils % Seg Neuts % (Manual) Lymphocytes % (Manual) Seg Neutrophils # Seg Neutrophils # Man Lymphocytes # (Manual) Monocytes # (Manual) D-Dimer Heparin Anti-Xa Level 0.85 H ABG pH POC ABG pCO2 POC ABG pO2 ABG pO2 ABG HCO3 ABG O2 Saturation ABG Base Excess ABG Hemoglobin ABG Oxyhemoglobin VBG pH Oxyhemoglobin Sodium Potassium Chloride Carbon Dioxide BUN Creatinine Glucose POC Glucose 182 H 187 H Lactic Acid Calcium AST Alkaline Phosphatase Lactate Dehydrogenase Total Creatine Kinase CK-MB (CK-2) C-Reactive Protein Total Protein Albumin Urine WBC (Auto) Urine Creatinine Urine Total Protein Coronavirus (PCR) Crossmatch 05/30/20 05/30/20 05/30/20 15:58 17:57 23:36 WBC RBC Hgb Hct RDW Lymph % (Auto) [place] % (Auto) Eos % (Auto) Lymph # [place] # Seg Neutrophils % Seg Neuts % (Manual) Lymphocytes % (Manual) Seg Neutrophils # Seg Neutrophils # Man Lymphocytes # (Manual) Monocytes # (Manual) D-Dimer Heparin Anti-Xa Level 1.03 H ABG pH POC ABG pCO2 POC ABG pO2 ABG pO2 ABG HCO3 ABG O2 Saturation ABG Base Excess ABG Hemoglobin ABG Oxyhemoglobin VBG pH Oxyhemoglobin Sodium Potassium Chloride Carbon Dioxide BUN Creatinine Glucose POC Glucose 208 H 185 H Lactic Acid Calcium AST Alkaline Phosphatase Lactate Dehydrogenase Total Creatine Kinase CK-MB (CK-2) C-Reactive Protein Total Protein Albumin Urine WBC (Auto) Urine Creatinine Urine Total Protein Coronavirus (PCR) Crossmatch 05/31/20 05/31/20 05/31/20 02:16 03:55 06:16 WBC RBC Hgb 9.2 L Hct 27.5 L RDW Lymph % (Auto) [place] % (Auto) Eos % (Auto) Lymph # [place] # Seg Neutrophils % Seg Neuts % (Manual) Lymphocytes % (Manual) Seg Neutrophils # Seg Neutrophils # Man Lymphocytes # (Manual) Monocytes # (Manual) D-Dimer Heparin Anti-Xa Level ABG pH POC ABG pCO2 POC ABG pO2 ABG pO2 94.7 H ABG HCO3 18.6 L ABG O2 Saturation ABG Base Excess -5.5 L ABG Hemoglobin 7.9 L ABG Oxyhemoglobin VBG pH Oxyhemoglobin Sodium Potassium Chloride Carbon Dioxide BUN Creatinine Glucose POC Glucose 160 H Lactic Acid Calcium AST Alkaline Phosphatase Lactate Dehydrogenase Total Creatine Kinase CK-MB (CK-2) C-Reactive Protein Total Protein Albumin Urine WBC (Auto) Urine Creatinine Urine Total Protein Coronavirus (PCR) Crossmatch 05/31/20 05/31/20 05/31/20 12:20 13:03 18:13 WBC RBC Hgb Hct RDW Lymph % (Auto) [place] % (Auto) Eos % (Auto) Lymph # [place] # Seg Neutrophils % Seg Neuts % (Manual) Lymphocytes % (Manual) Seg Neutrophils # Seg Neutrophils # Man Lymphocytes # (Manual) Monocytes # (Manual) D-Dimer Heparin Anti-Xa Level ABG pH POC ABG pCO2 POC ABG pO2 ABG pO2 ABG HCO3 ABG O2 Saturation ABG Base Excess ABG Hemoglobin ABG Oxyhemoglobin VBG pH Oxyhemoglobin Sodium Potassium Chloride Carbon Dioxide 18 L BUN 48 H Creatinine 1.6 H Glucose 115 H POC Glucose 128 H 159 H Lactic Acid Calcium 8.3 L AST Alkaline Phosphatase Lactate Dehydrogenase Total Creatine Kinase CK-MB (CK-2) C-Reactive Protein Total Protein 5.4 L Albumin 2.4 L Urine WBC (Auto) Urine Creatinine Urine Total Protein Coronavirus (PCR) Crossmatch 05/31/20 06/01/20 06/01/20 23:51 04:00 05:48 WBC RBC Hgb Hct RDW Lymph % (Auto) [place] % (Auto) Eos % (Auto) Lymph # [place] # Seg Neutrophils % Seg Neuts % (Manual) Lymphocytes % (Manual) Seg Neutrophils # Seg Neutrophils # Man Lymphocytes # (Manual) Monocytes # (Manual) D-Dimer Heparin Anti-Xa Level ABG pH POC ABG pCO2 POC ABG pO2 ABG pO2 109.8 H ABG HCO3 18.8 L ABG O2 Saturation ABG Base Excess -5.9 L ABG Hemoglobin 7.8 L ABG Oxyhemoglobin VBG pH Oxyhemoglobin Sodium Potassium Chloride Carbon Dioxide BUN Creatinine Glucose POC Glucose 171 H 133 H Lactic Acid Calcium AST Alkaline Phosphatase Lactate Dehydrogenase Total Creatine Kinase CK-MB (CK-2) C-Reactive Protein Total Protein Albumin Urine WBC (Auto) Urine Creatinine Urine Total Protein Coronavirus (PCR) Crossmatch 06/01/20 06/01/20 06/02/20 12:28 17:29 00:08 WBC RBC Hgb Hct RDW Lymph % (Auto) [place] % (Auto) Eos % (Auto) Lymph # [place] # Seg Neutrophils % Seg Neuts % (Manual) Lymphocytes % (Manual) Seg Neutrophils # Seg Neutrophils # Man Lymphocytes # (Manual) Monocytes # (Manual) D-Dimer Heparin Anti-Xa Level ABG pH POC ABG pCO2 POC ABG pO2 ABG pO2 ABG HCO3 ABG O2 Saturation ABG Base Excess ABG Hemoglobin ABG Oxyhemoglobin VBG pH Oxyhemoglobin Sodium Potassium Chloride Carbon Dioxide BUN Creatinine Glucose POC Glucose 199 H 209 H 162 H Lactic Acid Calcium AST Alkaline Phosphatase Lactate Dehydrogenase Total Creatine Kinase CK-MB (CK-2) C-Reactive Protein Total Protein Albumin Urine WBC (Auto) Urine Creatinine Urine Total Protein Coronavirus (PCR) Crossmatch 06/02/20 06/02/20 06/02/20 04:20 04:20 04:44 WBC RBC Hgb 10.0 L Hct RDW Lymph % (Auto) [place] % (Auto) Eos % (Auto) Lymph # [place] # Seg Neutrophils % Seg Neuts % (Manual) Lymphocytes % (Manual) Seg Neutrophils # Seg Neutrophils # Man Lymphocytes # (Manual) Monocytes # (Manual) D-Dimer Heparin Anti-Xa Level 0.10 L ABG pH POC ABG pCO2 POC ABG pO2 ABG pO2 150.6 H ABG HCO3 ABG O2 Saturation ABG Base Excess -4.1 L ABG Hemoglobin 11.8 L ABG Oxyhemoglobin VBG pH Oxyhemoglobin Sodium Potassium Chloride Carbon Dioxide BUN Creatinine Glucose POC Glucose Lactic Acid Calcium AST Alkaline Phosphatase Lactate Dehydrogenase Total Creatine Kinase CK-MB (CK-2) C-Reactive Protein Total Protein Albumin Urine WBC (Auto) Urine Creatinine Urine Total Protein Coronavirus (PCR) Crossmatch 06/02/20 06/02/20 06/02/20 05:53 12:04 13:49 WBC RBC Hgb Hct RDW Lymph % (Auto) [place] % (Auto) Eos % (Auto) Lymph # [place] # Seg Neutrophils % Seg Neuts % (Manual) Lymphocytes % (Manual) Seg Neutrophils # Seg Neutrophils # Man Lymphocytes # (Manual) Monocytes # (Manual) D-Dimer Heparin Anti-Xa Level 0.28 L ABG pH POC ABG pCO2 POC ABG pO2 ABG pO2 ABG HCO3 ABG O2 Saturation ABG Base Excess ABG Hemoglobin ABG Oxyhemoglobin VBG pH Oxyhemoglobin Sodium Potassium Chloride Carbon Dioxide BUN Creatinine Glucose POC Glucose 149 H 220 H Lactic Acid Calcium AST Alkaline Phosphatase Lactate Dehydrogenase Total Creatine Kinase CK-MB (CK-2) C-Reactive Protein Total Protein Albumin Urine WBC (Auto) Urine Creatinine Urine Total Protein Coronavirus (PCR) Crossmatch 06/02/20 06/02/20 06/03/20 13:49 18:31 00:42 WBC RBC Hgb Hct RDW Lymph % (Auto) [place] % (Auto) Eos % (Auto) Lymph # [place] # Seg Neutrophils % Seg Neuts % (Manual) Lymphocytes % (Manual) Seg Neutrophils # Seg Neutrophils # Man Lymphocytes # (Manual) Monocytes # (Manual) D-Dimer 769.68 H Heparin Anti-Xa Level ABG pH POC ABG pCO2 POC ABG pO2 ABG pO2 ABG HCO3 ABG O2 Saturation ABG Base Excess ABG Hemoglobin ABG Oxyhemoglobin VBG pH Oxyhemoglobin Sodium Potassium Chloride Carbon Dioxide BUN Creatinine Glucose POC Glucose 225 H 212 H Lactic Acid Calcium AST Alkaline Phosphatase Lactate Dehydrogenase Total Creatine Kinase CK-MB (CK-2) C-Reactive Protein Total Protein Albumin Urine WBC (Auto) Urine Creatinine Urine Total Protein Coronavirus (PCR) Crossmatch 06/03/20 06/03/20 06/03/20 05:16 05:16 05:25 WBC 11.4 H RBC Hgb Hct RDW 16.4 H Lymph % (Auto) [place] % (Auto) Eos % (Auto) Lymph # [place] # Seg Neutrophils % Seg Neuts % (Manual) Lymphocytes % (Manual) Seg Neutrophils # Seg Neutrophils # Man Lymphocytes # (Manual) Monocytes # (Manual) D-Dimer Heparin Anti-Xa Level ABG pH POC ABG pCO2 POC ABG pO2 ABG pO2 160.9 H ABG HCO3 19.4 L ABG O2 Saturation ABG Base Excess -4.9 L ABG Hemoglobin 7.0 L ABG Oxyhemoglobin VBG pH Oxyhemoglobin Sodium Potassium Chloride Carbon Dioxide 18 L BUN 65 H Creatinine 2.0 H Glucose 175 H POC Glucose Lactic Acid Calcium 8.0 L AST Alkaline Phosphatase Lactate Dehydrogenase Total Creatine Kinase CK-MB (CK-2) C-Reactive Protein Total Protein 5.5 L Albumin 2.2 L Urine WBC (Auto) Urine Creatinine Urine Total Protein Coronavirus (PCR) Crossmatch 06/03/20 06/03/20 06/03/20 06:07 11:58 18:24 WBC RBC Hgb Hct RDW Lymph % (Auto) [place] % (Auto) Eos % (Auto) Lymph # [place] # Seg Neutrophils % Seg Neuts % (Manual) Lymphocytes % (Manual) Seg Neutrophils # Seg Neutrophils # Man Lymphocytes # (Manual) Monocytes # (Manual) D-Dimer Heparin Anti-Xa Level ABG pH POC ABG pCO2 POC ABG pO2 ABG pO2 ABG HCO3 ABG O2 Saturation ABG Base Excess ABG Hemoglobin ABG Oxyhemoglobin VBG pH Oxyhemoglobin Sodium Potassium Chloride Carbon Dioxide BUN Creatinine Glucose POC Glucose 177 H 163 H 211 H Lactic Acid Calcium AST Alkaline Phosphatase Lactate Dehydrogenase Total Creatine Kinase CK-MB (CK-2) C-Reactive Protein Total Protein Albumin Urine WBC (Auto) Urine Creatinine Urine Total Protein Coronavirus (PCR) Crossmatch 06/03/20 06/03/20 06/04/20 21:50 Unknown 00:26 WBC RBC Hgb Hct RDW Lymph % (Auto) [place] % (Auto) Eos % (Auto) Lymph # [place] # Seg Neutrophils % Seg Neuts % (Manual) Lymphocytes % (Manual) Seg Neutrophils # Seg Neutrophils # Man Lymphocytes # (Manual) Monocytes # (Manual) D-Dimer Heparin Anti-Xa Level ABG pH POC ABG pCO2 POC ABG pO2 ABG pO2 ABG HCO3 ABG O2 Saturation ABG Base Excess ABG Hemoglobin ABG Oxyhemoglobin VBG pH Oxyhemoglobin Sodium 135 L Potassium Chloride Carbon Dioxide 18 L BUN Creatinine Glucose POC Glucose 241 H Lactic Acid Calcium AST Alkaline Phosphatase Lactate Dehydrogenase Total Creatine Kinase CK-MB (CK-2) C-Reactive Protein Total Protein Albumin Urine WBC (Auto) 11.0 H Urine Creatinine Urine Total Protein Coronavirus (PCR) Crossmatch 06/04/20 06/04/20 06/04/20 03:35 04:19 04:19 WBC RBC 3.15 L Hgb 8.9 L Hct 26.8 L D RDW 15.9 H Lymph % (Auto) 6.0 L [place] % (Auto) Eos % (Auto) Lymph # 0.6 L [place] # Seg Neutrophils % 86.6 H Seg Neuts % (Manual) Lymphocytes % (Manual) Seg Neutrophils # 9.1 H Seg Neutrophils # Man Lymphocytes # (Manual) Monocytes # (Manual) D-Dimer Heparin Anti-Xa Level ABG pH 7.331 L POC ABG pCO2 POC ABG pO2 ABG pO2 ABG HCO3 ABG O2 Saturation ABG Base Excess -4.7 L ABG Hemoglobin 11.0 L ABG Oxyhemoglobin VBG pH Oxyhemoglobin 93.9 L Sodium 136 L Potassium Chloride Carbon Dioxide 20 L BUN 73 H Creatinine 2.0 H Glucose 192 H POC Glucose Lactic Acid Calcium 8.0 L AST Alkaline Phosphatase Lactate Dehydrogenase 271 H Total Creatine Kinase CK-MB (CK-2) C-Reactive Protein 2.20 H Total Protein 5.0 L Albumin 2.0 L Urine WBC (Auto) Urine Creatinine Urine Total Protein Coronavirus (PCR) Crossmatch 06/04/20 06/04/20 06/04/20 04:19 05:51 11:48 WBC RBC Hgb Hct RDW Lymph % (Auto) [place] % (Auto) Eos % (Auto) Lymph # [place] # Seg Neutrophils % Seg Neuts % (Manual) Lymphocytes % (Manual) Seg Neutrophils # Seg Neutrophils # Man Lymphocytes # (Manual) Monocytes # (Manual) D-Dimer 414.52 H Heparin Anti-Xa Level ABG pH POC ABG pCO2 POC ABG pO2 ABG pO2 ABG HCO3 ABG O2 Saturation ABG Base Excess ABG Hemoglobin ABG Oxyhemoglobin VBG pH Oxyhemoglobin Sodium Potassium Chloride Carbon Dioxide BUN Creatinine Glucose POC Glucose 179 H 213 H Lactic Acid Calcium AST Alkaline Phosphatase Lactate Dehydrogenase Total Creatine Kinase CK-MB (CK-2) C-Reactive Protein Total Protein Albumin Urine WBC (Auto) Urine Creatinine Urine Total Protein Coronavirus (PCR) Crossmatch 06/04/20 06/05/20 06/05/20 18:25 00:16 05:00 WBC RBC Hgb Hct RDW Lymph % (Auto) [place] % (Auto) Eos % (Auto) Lymph # [place] # Seg Neutrophils % Seg Neuts % (Manual) Lymphocytes % (Manual) Seg Neutrophils # Seg Neutrophils # Man Lymphocytes # (Manual) Monocytes # (Manual) D-Dimer Heparin Anti-Xa Level ABG pH 7.286 L POC ABG pCO2 POC ABG pO2 ABG pO2 96.2 H ABG HCO3 ABG O2 Saturation ABG Base Excess -6.3 L ABG Hemoglobin 8.8 L ABG Oxyhemoglobin VBG pH Oxyhemoglobin 94.8 L Sodium Potassium Chloride Carbon Dioxide BUN Creatinine Glucose POC Glucose 238 H 183 H Lactic Acid Calcium AST Alkaline Phosphatase Lactate Dehydrogenase Total Creatine Kinase CK-MB (CK-2) C-Reactive Protein Total Protein Albumin Urine WBC (Auto) Urine Creatinine Urine Total Protein Coronavirus (PCR) Crossmatch 06/05/20 06/05/20 06/05/20 05:39 07:25 07:25 WBC RBC 2.97 L Hgb 8.7 L Hct 25.7 L RDW 16.0 H Lymph % (Auto) 8.8 L [place] % (Auto) 13.3 H Eos % (Auto) Lymph # 0.8 L [place] # 1.3 H Seg Neutrophils % 77.3 H Seg Neuts % (Manual) Lymphocytes % (Manual) Seg Neutrophils # Seg Neutrophils # Man Lymphocytes # (Manual) Monocytes # (Manual) D-Dimer Heparin Anti-Xa Level ABG pH POC ABG pCO2 POC ABG pO2 ABG pO2 ABG HCO3 ABG O2 Saturation ABG Base Excess ABG Hemoglobin ABG Oxyhemoglobin VBG pH Oxyhemoglobin Sodium 133 L Potassium Chloride Carbon Dioxide 17 L BUN 89 H Creatinine 2.8 H Glucose 176 H POC Glucose 149 H Lactic Acid Calcium 7.7 L AST Alkaline Phosphatase Lactate Dehydrogenase Total Creatine Kinase CK-MB (CK-2) C-Reactive Protein Total Protein 4.2 L Albumin 1.9 L Urine WBC (Auto) Urine Creatinine Urine Total Protein Coronavirus (PCR) Crossmatch 06/05/20 06/05/20 06/05/20 07:25 12:05 15:41 WBC RBC Hgb Hct RDW Lymph % (Auto) [place] % (Auto) Eos % (Auto) Lymph # [place] # Seg Neutrophils % Seg Neuts % (Manual) Lymphocytes % (Manual) Seg Neutrophils # Seg Neutrophils # Man Lymphocytes # (Manual) Monocytes # (Manual) D-Dimer Heparin Anti-Xa Level 0.76 H 0.81 H ABG pH POC ABG pCO2 POC ABG pO2 ABG pO2 ABG HCO3 ABG O2 Saturation ABG Base Excess ABG Hemoglobin ABG Oxyhemoglobin VBG pH Oxyhemoglobin Sodium Potassium Chloride Carbon Dioxide BUN Creatinine Glucose POC Glucose 198 H Lactic Acid Calcium AST Alkaline Phosphatase Lactate Dehydrogenase Total Creatine Kinase CK-MB (CK-2) C-Reactive Protein Total Protein Albumin Urine WBC (Auto) Urine Creatinine Urine Total Protein Coronavirus (PCR) Crossmatch 06/05/20 06/05/20 06/06/20 18:08 23:25 04:00 WBC RBC Hgb Hct RDW Lymph % (Auto) [place] % (Auto) Eos % (Auto) Lymph # [place] # Seg Neutrophils % Seg Neuts % (Manual) Lymphocytes % (Manual) Seg Neutrophils # Seg Neutrophils # Man Lymphocytes # (Manual) Monocytes # (Manual) D-Dimer Heparin Anti-Xa Level ABG pH POC ABG pCO2 POC ABG pO2 ABG pO2 ABG HCO3 ABG O2 Saturation ABG Base Excess ABG Hemoglobin ABG Oxyhemoglobin VBG pH Oxyhemoglobin Sodium Potassium Chloride Carbon Dioxide BUN Creatinine Glucose POC Glucose 223 H 169 H Lactic Acid Calcium AST Alkaline Phosphatase Lactate Dehydrogenase Total Creatine Kinase CK-MB (CK-2) C-Reactive Protein Total Protein Albumin Urine WBC (Auto) 15.0 H Urine Creatinine Urine Total Protein Coronavirus (PCR) Crossmatch 06/06/20 06/06/20 06/06/20 04:00 05:33 05:38 WBC RBC 2.97 L Hgb 8.7 L Hct 26.8 L RDW 16.8 H Lymph % (Auto) [place] % (Auto) Eos % (Auto) Lymph # [place] # Seg Neutrophils % Seg Neuts % (Manual) Lymphocytes % (Manual) Seg Neutrophils # Seg Neutrophils # Man Lymphocytes # (Manual) Monocytes # (Manual) D-Dimer Heparin Anti-Xa Level ABG pH POC ABG pCO2 POC ABG pO2 ABG pO2 ABG HCO3 ABG O2 Saturation ABG Base Excess ABG Hemoglobin ABG Oxyhemoglobin VBG pH Oxyhemoglobin Sodium Potassium Chloride Carbon Dioxide BUN Creatinine Glucose POC Glucose 186 H Lactic Acid Calcium AST Alkaline Phosphatase Lactate Dehydrogenase Total Creatine Kinase CK-MB (CK-2) C-Reactive Protein Total Protein Albumin Urine WBC (Auto) Urine Creatinine 82.2 H Urine Total Protein 196 H Coronavirus (PCR) Crossmatch 06/06/20 06/06/20 06/06/20 05:38 12:25 17:03 WBC RBC Hgb Hct RDW Lymph % (Auto) [place] % (Auto) Eos % (Auto) Lymph # [place] # Seg Neutrophils % Seg Neuts % (Manual) Lymphocytes % (Manual) Seg Neutrophils # Seg Neutrophils # Man Lymphocytes # (Manual) Monocytes # (Manual) D-Dimer Heparin Anti-Xa Level ABG pH POC ABG pCO2 POC ABG pO2 ABG pO2 ABG HCO3 ABG O2 Saturation ABG Base Excess ABG Hemoglobin ABG Oxyhemoglobin VBG pH Oxyhemoglobin Sodium 134 L Potassium 5.2 H Chloride Carbon Dioxide 18 L BUN 97 H Creatinine 2.5 H Glucose 193 H POC Glucose 239 H 252 H Lactic Acid Calcium 7.5 L AST Alkaline Phosphatase Lactate Dehydrogenase Total Creatine Kinase CK-MB (CK-2) C-Reactive Protein Total Protein 4.1 L Albumin 1.9 L Urine WBC (Auto) Urine Creatinine Urine Total Protein Coronavirus (PCR) Crossmatch 06/07/20 06/07/20 06/07/20 00:16 01:49 04:00 WBC RBC 2.91 L Hgb 8.4 L Hct 25.0 L RDW 16.1 H Lymph % (Auto) 5.7 L [place] % (Auto) 10.5 H Eos % (Auto) Lymph # 0.6 L [place] # 1.1 H Seg Neutrophils % 83.6 H Seg Neuts % (Manual) Lymphocytes % (Manual) Seg Neutrophils # 9.1 H Seg Neutrophils # Man Lymphocytes # (Manual) Monocytes # (Manual) D-Dimer Heparin Anti-Xa Level 0.26 L ABG pH POC ABG pCO2 POC ABG pO2 ABG pO2 ABG HCO3 ABG O2 Saturation ABG Base Excess ABG Hemoglobin ABG Oxyhemoglobin VBG pH Oxyhemoglobin Sodium Potassium Chloride Carbon Dioxide BUN Creatinine Glucose POC Glucose 173 H Lactic Acid Calcium AST Alkaline Phosphatase Lactate Dehydrogenase Total Creatine Kinase CK-MB (CK-2) C-Reactive Protein Total Protein Albumin Urine WBC (Auto) Urine Creatinine Urine Total Protein Coronavirus (PCR) Crossmatch 06/07/20 06/07/20 06/07/20 04:00 04:54 05:51 WBC RBC Hgb Hct RDW Lymph % (Auto) [place] % (Auto) Eos % (Auto) Lymph # [place] # Seg Neutrophils % Seg Neuts % (Manual) Lymphocytes % (Manual) Seg Neutrophils # Seg Neutrophils # Man Lymphocytes # (Manual) Monocytes # (Manual) D-Dimer Heparin Anti-Xa Level ABG pH 7.317 L POC ABG pCO2 POC ABG pO2 ABG pO2 71.4 L ABG HCO3 ABG O2 Saturation 94.3 L ABG Base Excess -4.8 L ABG Hemoglobin 7.1 L ABG Oxyhemoglobin VBG pH Oxyhemoglobin 92.2 L Sodium 133 L Potassium Chloride Carbon Dioxide 18 L BUN 100 H Creatinine 2.5 H Glucose 158 H POC Glucose 168 H Lactic Acid Calcium 7.6 L AST Alkaline Phosphatase Lactate Dehydrogenase Total Creatine Kinase CK-MB (CK-2) C-Reactive Protein Total Protein 4.7 L Albumin 2.0 L Urine WBC (Auto) Urine Creatinine Urine Total Protein Coronavirus (PCR) Crossmatch 06/07/20 06/07/20 06/07/20 12:03 17:17 20:10 WBC RBC Hgb Hct RDW Lymph % (Auto) [place] % (Auto) Eos % (Auto) Lymph # [place] # Seg Neutrophils % Seg Neuts % (Manual) Lymphocytes % (Manual) Seg Neutrophils # Seg Neutrophils # Man Lymphocytes # (Manual) Monocytes # (Manual) D-Dimer Heparin Anti-Xa Level 0.17 L ABG pH POC ABG pCO2 POC ABG pO2 ABG pO2 ABG HCO3 ABG O2 Saturation ABG Base Excess ABG Hemoglobin ABG Oxyhemoglobin VBG pH Oxyhemoglobin Sodium Potassium Chloride Carbon Dioxide BUN Creatinine Glucose POC Glucose 276 H 281 H Lactic Acid Calcium AST Alkaline Phosphatase Lactate Dehydrogenase Total Creatine Kinase CK-MB (CK-2) C-Reactive Protein Total Protein Albumin Urine WBC (Auto) Urine Creatinine Urine Total Protein Coronavirus (PCR) Crossmatch 06/08/20 06/08/20 06/08/20 00:02 04:47 04:47 WBC 16.4 H RBC 3.07 L Hgb 8.6 L Hct 26.5 L RDW 16.3 H Lymph % (Auto) [place] % (Auto) Eos % (Auto) Lymph # [place] # Seg Neutrophils % Seg Neuts % (Manual) 90.0 H Lymphocytes % (Manual) 3.0 L Seg Neutrophils # Seg Neutrophils # Man 14.8 H Lymphocytes # (Manual) 0.5 L Monocytes # (Manual) 1.1 H D-Dimer Heparin Anti-Xa Level ABG pH POC ABG pCO2 POC ABG pO2 ABG pO2 ABG HCO3 ABG O2 Saturation ABG Base Excess ABG Hemoglobin ABG Oxyhemoglobin VBG pH Oxyhemoglobin Sodium 129 L Potassium Chloride 95.6 L Carbon Dioxide 17 L BUN 106 H Creatinine 2.5 H Glucose 213 H POC Glucose 242 H Lactic Acid Calcium 7.6 L AST Alkaline Phosphatase Lactate Dehydrogenase Total Creatine Kinase CK-MB (CK-2) C-Reactive Protein Total Protein 5.0 L Albumin 2.1 L Urine WBC (Auto) Urine Creatinine Urine Total Protein Coronavirus (PCR) Crossmatch 06/08/20 06/08/20 06/08/20 05:40 11:55 17:54 WBC RBC Hgb Hct RDW Lymph % (Auto) [place] % (Auto) Eos % (Auto) Lymph # [place] # Seg Neutrophils % Seg Neuts % (Manual) Lymphocytes % (Manual) Seg Neutrophils # Seg Neutrophils # Man Lymphocytes # (Manual) Monocytes # (Manual) D-Dimer Heparin Anti-Xa Level ABG pH POC ABG pCO2 POC ABG pO2 ABG pO2 ABG HCO3 ABG O2 Saturation ABG Base Excess ABG Hemoglobin ABG Oxyhemoglobin VBG pH Oxyhemoglobin Sodium Potassium Chloride Carbon Dioxide BUN Creatinine Glucose POC Glucose 221 H 218 H 163 H Lactic Acid Calcium AST Alkaline Phosphatase Lactate Dehydrogenase Total Creatine Kinase CK-MB (CK-2) C-Reactive Protein Total Protein Albumin Urine WBC (Auto) Urine Creatinine Urine Total Protein Coronavirus (PCR) Crossmatch 06/08/20 06/09/20 06/09/20 22:01 00:09 05:16 WBC 19.0 H RBC 3.35 L Hgb 9.2 L Hct 28.5 L RDW 16.3 H Lymph % (Auto) [place] % (Auto) Eos % (Auto) Lymph # [place] # Seg Neutrophils % Seg Neuts % (Manual) 85.0 H Lymphocytes % (Manual) 7.0 L Seg Neutrophils # Seg Neutrophils # Man 16.2 H Lymphocytes # (Manual) Monocytes # (Manual) 1.3 H D-Dimer Heparin Anti-Xa Level ABG pH POC ABG pCO2 POC ABG pO2 ABG pO2 ABG HCO3 ABG O2 Saturation ABG Base Excess ABG Hemoglobin ABG Oxyhemoglobin VBG pH Oxyhemoglobin Sodium Potassium Chloride Carbon Dioxide BUN Creatinine Glucose POC Glucose 182 H 150 H Lactic Acid Calcium AST Alkaline Phosphatase Lactate Dehydrogenase Total Creatine Kinase CK-MB (CK-2) C-Reactive Protein Total Protein Albumin Urine WBC (Auto) Urine Creatinine Urine Total Protein Coronavirus (PCR) Crossmatch 06/09/20 06/09/20 06/09/20 05:16 05:24 11:29 WBC RBC Hgb Hct RDW Lymph % (Auto) [place] % (Auto) Eos % (Auto) Lymph # [place] # Seg Neutrophils % Seg Neuts % (Manual) Lymphocytes % (Manual) Seg Neutrophils # Seg Neutrophils # Man Lymphocytes # (Manual) Monocytes # (Manual) D-Dimer Heparin Anti-Xa Level ABG pH POC ABG pCO2 POC ABG pO2 ABG pO2 ABG HCO3 ABG O2 Saturation ABG Base Excess ABG Hemoglobin ABG Oxyhemoglobin VBG pH Oxyhemoglobin Sodium 133 L Potassium Chloride Carbon Dioxide 19 L BUN 109 H Creatinine 2.1 H Glucose 133 H POC Glucose 128 H 119 H Lactic Acid Calcium 7.7 L AST Alkaline Phosphatase < 5 L Lactate Dehydrogenase Total Creatine Kinase CK-MB (CK-2) C-Reactive Protein Total Protein 4.6 L Albumin < 0.2 L Urine WBC (Auto) Urine Creatinine Urine Total Protein Coronavirus (PCR) Crossmatch 06/09/20 06/10/20 06/10/20 17:32 00:00 05:49 WBC RBC Hgb Hct RDW Lymph % (Auto) [place] % (Auto) Eos % (Auto) Lymph # [place] # Seg Neutrophils % Seg Neuts % (Manual) Lymphocytes % (Manual) Seg Neutrophils # Seg Neutrophils # Man Lymphocytes # (Manual) Monocytes # (Manual) D-Dimer Heparin Anti-Xa Level 0.19 L ABG pH POC ABG pCO2 POC ABG pO2 ABG pO2 ABG HCO3 ABG O2 Saturation ABG Base Excess ABG Hemoglobin ABG Oxyhemoglobin VBG pH Oxyhemoglobin Sodium Potassium Chloride Carbon Dioxide BUN Creatinine Glucose POC Glucose 106 H 117 H Lactic Acid Calcium AST Alkaline Phosphatase Lactate Dehydrogenase Total Creatine Kinase CK-MB (CK-2) C-Reactive Protein Total Protein Albumin Urine WBC (Auto) Urine Creatinine Urine Total Protein Coronavirus (PCR) Crossmatch 06/10/20 06/10/20 06/10/20 05:54 07:40 11:40 WBC RBC Hgb Hct RDW Lymph % (Auto) [place] % (Auto) Eos % (Auto) Lymph # [place] # Seg Neutrophils % Seg Neuts % (Manual) Lymphocytes % (Manual) Seg Neutrophils # Seg Neutrophils # Man Lymphocytes # (Manual) Monocytes # (Manual) D-Dimer Heparin Anti-Xa Level ABG pH POC ABG pCO2 POC ABG pO2 ABG pO2 ABG HCO3 ABG O2 Saturation ABG Base Excess ABG Hemoglobin ABG Oxyhemoglobin VBG pH Oxyhemoglobin Sodium 146 H D Potassium Chloride Carbon Dioxide 20 L BUN 99 H Creatinine 1.9 H Glucose 121 H POC Glucose 127 H 138 H Lactic Acid Calcium 8.2 L AST Alkaline Phosphatase Lactate Dehydrogenase Total Creatine Kinase CK-MB (CK-2) C-Reactive Protein Total Protein Albumin Urine WBC (Auto) Urine Creatinine Urine Total Protein Coronavirus (PCR) Crossmatch 06/10/20 06/10/20 06/10/20 14:44 17:31 23:22 WBC RBC Hgb Hct RDW Lymph % (Auto) [place] % (Auto) Eos % (Auto) Lymph # [place] # Seg Neutrophils % Seg Neuts % (Manual) Lymphocytes % (Manual) Seg Neutrophils # Seg Neutrophils # Man Lymphocytes # (Manual) Monocytes # (Manual) D-Dimer Heparin Anti-Xa Level 0.17 L ABG pH POC ABG pCO2 POC ABG pO2 ABG pO2 ABG HCO3 ABG O2 Saturation ABG Base Excess ABG Hemoglobin ABG Oxyhemoglobin VBG pH Oxyhemoglobin Sodium Potassium Chloride Carbon Dioxide BUN Creatinine Glucose POC Glucose 128 H 114 H Lactic Acid Calcium AST Alkaline Phosphatase Lactate Dehydrogenase Total Creatine Kinase CK-MB (CK-2) C-Reactive Protein Total Protein Albumin Urine WBC (Auto) Urine Creatinine Urine Total Protein Coronavirus (PCR) Crossmatch 06/11/20 06/11/20 06/11/20 00:22 03:45 03:45 WBC 14.6 H RBC 2.77 L Hgb 7.9 L Hct 24.3 L RDW 16.8 H Lymph % (Auto) 6.6 L [place] % (Auto) 8.5 H Eos % (Auto) Lymph # 1.0 L [place] # 1.2 H Seg Neutrophils % 82.9 H Seg Neuts % (Manual) Lymphocytes % (Manual) Seg Neutrophils # 12.1 H Seg Neutrophils # Man Lymphocytes # (Manual) Monocytes # (Manual) D-Dimer Heparin Anti-Xa Level 0.24 L ABG pH POC ABG pCO2 POC ABG pO2 ABG pO2 ABG HCO3 ABG O2 Saturation ABG Base Excess ABG Hemoglobin ABG Oxyhemoglobin VBG pH Oxyhemoglobin Sodium Potassium Chloride Carbon Dioxide 20 L BUN 88 H Creatinine 1.5 H Glucose 111 H POC Glucose Lactic Acid Calcium 8.2 L AST Alkaline Phosphatase Lactate Dehydrogenase Total Creatine Kinase CK-MB (CK-2) C-Reactive Protein Total Protein Albumin Urine WBC (Auto) Urine Creatinine Urine Total Protein Coronavirus (PCR) Crossmatch 06/11/20 06/11/20 06/11/20 06:03 10:22 11:11 WBC RBC Hgb Hct RDW Lymph % (Auto) [place] % (Auto) Eos % (Auto) Lymph # [place] # Seg Neutrophils % Seg Neuts % (Manual) Lymphocytes % (Manual) Seg Neutrophils # Seg Neutrophils # Man Lymphocytes # (Manual) Monocytes # (Manual) D-Dimer Heparin Anti-Xa Level 0.26 L ABG pH POC ABG pCO2 POC ABG pO2 ABG pO2 ABG HCO3 ABG O2 Saturation ABG Base Excess ABG Hemoglobin 9.6 L ABG Oxyhemoglobin VBG pH Oxyhemoglobin Sodium Potassium Chloride Carbon Dioxide BUN Creatinine Glucose POC Glucose 114 H Lactic Acid Calcium AST Alkaline Phosphatase Lactate Dehydrogenase Total Creatine Kinase CK-MB (CK-2) C-Reactive Protein Total Protein Albumin Urine WBC (Auto) Urine Creatinine Urine Total Protein Coronavirus (PCR) Crossmatch 06/11/20 06/11/20 06/12/20 12:24 17:24 00:21 WBC RBC Hgb Hct RDW Lymph % (Auto) [place] % (Auto) Eos % (Auto) Lymph # [place] # Seg Neutrophils % Seg Neuts % (Manual) Lymphocytes % (Manual) Seg Neutrophils # Seg Neutrophils # Man Lymphocytes # (Manual) Monocytes # (Manual) D-Dimer Heparin Anti-Xa Level ABG pH POC ABG pCO2 POC ABG pO2 ABG pO2 ABG HCO3 ABG O2 Saturation ABG Base Excess ABG Hemoglobin ABG Oxyhemoglobin VBG pH Oxyhemoglobin Sodium Potassium Chloride Carbon Dioxide BUN Creatinine Glucose POC Glucose 119 H 126 H 117 H Lactic Acid Calcium AST Alkaline Phosphatase Lactate Dehydrogenase Total Creatine Kinase CK-MB (CK-2) C-Reactive Protein Total Protein Albumin Urine WBC (Auto) Urine Creatinine Urine Total Protein Coronavirus (PCR) Crossmatch 06/12/20 06/12/20 06/12/20 02:46 02:46 05:46 WBC 13.2 H RBC 2.83 L Hgb 8.3 L Hct 24.3 L RDW 16.6 H Lymph % (Auto) 6.2 L [place] % (Auto) 9.5 H Eos % (Auto) Lymph # 0.8 L [place] # 1.3 H Seg Neutrophils % 81.9 H Seg Neuts % (Manual) Lymphocytes % (Manual) Seg Neutrophils # 10.9 H Seg Neutrophils # Man Lymphocytes # (Manual) Monocytes # (Manual) D-Dimer Heparin Anti-Xa Level ABG pH POC ABG pCO2 POC ABG pO2 ABG pO2 ABG HCO3 ABG O2 Saturation ABG Base Excess ABG Hemoglobin ABG Oxyhemoglobin VBG pH Oxyhemoglobin Sodium Potassium 3.5 L Chloride Carbon Dioxide BUN 77 H Creatinine 1.3 H Glucose POC Glucose 132 H Lactic Acid Calcium 8.3 L AST Alkaline Phosphatase Lactate Dehydrogenase Total Creatine Kinase CK-MB (CK-2) C-Reactive Protein Total Protein Albumin Urine WBC (Auto) Urine Creatinine Urine Total Protein Coronavirus (PCR) Crossmatch 06/12/20 06/12/20 06/12/20 09:20 12:16 17:48 WBC RBC Hgb Hct RDW Lymph % (Auto) [place] % (Auto) Eos % (Auto) Lymph # [place] # Seg Neutrophils % Seg Neuts % (Manual) Lymphocytes % (Manual) Seg Neutrophils # Seg Neutrophils # Man Lymphocytes # (Manual) Monocytes # (Manual) D-Dimer Heparin Anti-Xa Level ABG pH POC ABG pCO2 POC ABG pO2 ABG pO2 91.1 H ABG HCO3 ABG O2 Saturation ABG Base Excess ABG Hemoglobin ABG Oxyhemoglobin VBG pH Oxyhemoglobin 94.8 L Sodium Potassium Chloride Carbon Dioxide BUN Creatinine Glucose POC Glucose 167 H 182 H Lactic Acid Calcium AST Alkaline Phosphatase Lactate Dehydrogenase Total Creatine Kinase CK-MB (CK-2) C-Reactive Protein Total Protein Albumin Urine WBC (Auto) Urine Creatinine Urine Total Protein Coronavirus (PCR) Crossmatch 06/13/20 06/13/20 06/13/20 00:08 05:37 09:09 WBC RBC Hgb Hct RDW Lymph % (Auto) [place] % (Auto) Eos % (Auto) Lymph # [place] # Seg Neutrophils % Seg Neuts % (Manual) Lymphocytes % (Manual) Seg Neutrophils # Seg Neutrophils # Man Lymphocytes # (Manual) Monocytes # (Manual) D-Dimer Heparin Anti-Xa Level 0.86 H ABG pH POC ABG pCO2 POC ABG pO2 ABG pO2 ABG HCO3 ABG O2 Saturation ABG Base Excess ABG Hemoglobin ABG Oxyhemoglobin VBG pH Oxyhemoglobin Sodium Potassium Chloride Carbon Dioxide BUN Creatinine Glucose POC Glucose 142 H 119 H Lactic Acid Calcium AST Alkaline Phosphatase Lactate Dehydrogenase Total Creatine Kinase CK-MB (CK-2) C-Reactive Protein Total Protein Albumin Urine WBC (Auto) Urine Creatinine Urine Total Protein Coronavirus (PCR) Crossmatch 06/13/20 06/13/20 06/13/20 12:28 17:55 21:17 WBC RBC Hgb Hct RDW Lymph % (Auto) [place] % (Auto) Eos % (Auto) Lymph # [place] # Seg Neutrophils % Seg Neuts % (Manual) Lymphocytes % (Manual) Seg Neutrophils # Seg Neutrophils # Man Lymphocytes # (Manual) Monocytes # (Manual) D-Dimer Heparin Anti-Xa Level ABG pH POC ABG pCO2 POC ABG pO2 ABG pO2 ABG HCO3 ABG O2 Saturation ABG Base Excess ABG Hemoglobin ABG Oxyhemoglobin VBG pH Oxyhemoglobin Sodium Potassium Chloride Carbon Dioxide BUN 61 H Creatinine Glucose 131 H POC Glucose 165 H 174 H Lactic Acid Calcium AST Alkaline Phosphatase Lactate Dehydrogenase Total Creatine Kinase CK-MB (CK-2) C-Reactive Protein Total Protein Albumin Urine WBC (Auto) Urine Creatinine Urine Total Protein Coronavirus (PCR) Crossmatch 06/13/20 06/13/20 06/14/20 21:17 23:50 05:34 WBC RBC Hgb Hct RDW Lymph % (Auto) [place] % (Auto) Eos % (Auto) Lymph # [place] # Seg Neutrophils % Seg Neuts % (Manual) Lymphocytes % (Manual) Seg Neutrophils # Seg Neutrophils # Man Lymphocytes # (Manual) Monocytes # (Manual) D-Dimer Heparin Anti-Xa Level 0.72 H ABG pH POC ABG pCO2 POC ABG pO2 ABG pO2 ABG HCO3 ABG O2 Saturation ABG Base Excess ABG Hemoglobin ABG Oxyhemoglobin VBG pH Oxyhemoglobin Sodium 146 H Potassium Chloride 107.6 H Carbon Dioxide BUN 61 H Creatinine 1.3 H Glucose 135 H POC Glucose 146 H Lactic Acid Calcium AST Alkaline Phosphatase Lactate Dehydrogenase Total Creatine Kinase CK-MB (CK-2) C-Reactive Protein Total Protein Albumin Urine WBC (Auto) Urine Creatinine Urine Total Protein Coronavirus (PCR) Crossmatch 06/14/20 06/14/20 06/14/20 06:11 09:28 11:30 WBC RBC Hgb Hct RDW Lymph % (Auto) [place] % (Auto) Eos % (Auto) Lymph # [place] # Seg Neutrophils % Seg Neuts % (Manual) Lymphocytes % (Manual) Seg Neutrophils # Seg Neutrophils # Man Lymphocytes # (Manual) Monocytes # (Manual) D-Dimer Heparin Anti-Xa Level 0.90 H ABG pH POC ABG pCO2 POC ABG pO2 ABG pO2 ABG HCO3 ABG O2 Saturation ABG Base Excess ABG Hemoglobin ABG Oxyhemoglobin VBG pH Oxyhemoglobin Sodium Potassium Chloride Carbon Dioxide BUN Creatinine Glucose POC Glucose 141 H 186 H Lactic Acid Calcium AST Alkaline Phosphatase Lactate Dehydrogenase Total Creatine Kinase CK-MB (CK-2) C-Reactive Protein Total Protein Albumin Urine WBC (Auto) Urine Creatinine Urine Total Protein Coronavirus (PCR) Crossmatch 06/14/20 06/14/20 06/14/20 16:07 18:16 23:51 WBC RBC Hgb Hct RDW Lymph % (Auto) [place] % (Auto) Eos % (Auto) Lymph # [place] # Seg Neutrophils % Seg Neuts % (Manual) Lymphocytes % (Manual) Seg Neutrophils # Seg Neutrophils # Man Lymphocytes # (Manual) Monocytes # (Manual) D-Dimer Heparin Anti-Xa Level 0.82 H ABG pH POC ABG pCO2 POC ABG pO2 ABG pO2 ABG HCO3 ABG O2 Saturation ABG Base Excess ABG Hemoglobin ABG Oxyhemoglobin VBG pH Oxyhemoglobin Sodium Potassium Chloride Carbon Dioxide BUN Creatinine Glucose POC Glucose 106 H 154 H Lactic Acid Calcium AST Alkaline Phosphatase Lactate Dehydrogenase Total Creatine Kinase CK-MB (CK-2) C-Reactive Protein Total Protein Albumin Urine WBC (Auto) Urine Creatinine Urine Total Protein Coronavirus (PCR) Crossmatch 06/15/20 06/15/20 06/15/20 04:24 04:24 05:59 WBC RBC 2.75 L Hgb 7.9 L Hct 24.0 L RDW 16.4 H Lymph % (Auto) 12.9 L [place] % (Auto) 8.7 H Eos % (Auto) 4.6 H Lymph # 1.1 L [place] # Seg Neutrophils % 73.2 H Seg Neuts % (Manual) Lymphocytes % (Manual) Seg Neutrophils # Seg Neutrophils # Man Lymphocytes # (Manual) Monocytes # (Manual) D-Dimer Heparin Anti-Xa Level ABG pH POC ABG pCO2 POC ABG pO2 ABG pO2 ABG HCO3 ABG O2 Saturation ABG Base Excess ABG Hemoglobin ABG Oxyhemoglobin VBG pH Oxyhemoglobin Sodium Potassium 3.4 L Chloride Carbon Dioxide BUN 55 H Creatinine 1.3 H Glucose 142 H POC Glucose 131 H Lactic Acid Calcium AST Alkaline Phosphatase Lactate Dehydrogenase Total Creatine Kinase CK-MB (CK-2) C-Reactive Protein Total Protein Albumin Urine WBC (Auto) Urine Creatinine Urine Total Protein Coronavirus (PCR) Crossmatch 06/15/20 06/15/20 06/16/20 12:33 17:07 00:22 WBC RBC Hgb Hct RDW Lymph % (Auto) [place] % (Auto) Eos % (Auto) Lymph # [place] # Seg Neutrophils % Seg Neuts % (Manual) Lymphocytes % (Manual) Seg Neutrophils # Seg Neutrophils # Man Lymphocytes # (Manual) Monocytes # (Manual) D-Dimer Heparin Anti-Xa Level 0.21 L ABG pH POC ABG pCO2 POC ABG pO2 ABG pO2 ABG HCO3 ABG O2 Saturation ABG Base Excess ABG Hemoglobin ABG Oxyhemoglobin VBG pH Oxyhemoglobin Sodium Potassium Chloride Carbon Dioxide BUN Creatinine Glucose POC Glucose 180 H 185 H Lactic Acid Calcium AST Alkaline Phosphatase Lactate Dehydrogenase Total Creatine Kinase CK-MB (CK-2) C-Reactive Protein Total Protein Albumin Urine WBC (Auto) Urine Creatinine Urine Total Protein Coronavirus (PCR) Crossmatch 06/16/20 06/16/20 06/16/20 01:45 08:06 09:15 WBC RBC Hgb Hct RDW Lymph % (Auto) [place] % (Auto) Eos % (Auto) Lymph # [place] # Seg Neutrophils % Seg Neuts % (Manual) Lymphocytes % (Manual) Seg Neutrophils # Seg Neutrophils # Man Lymphocytes # (Manual) Monocytes # (Manual) D-Dimer Heparin Anti-Xa Level ABG pH POC ABG pCO2 POC ABG pO2 ABG pO2 ABG HCO3 ABG O2 Saturation ABG Base Excess ABG Hemoglobin ABG Oxyhemoglobin VBG pH Oxyhemoglobin Sodium Potassium Chloride Carbon Dioxide BUN 49 H Creatinine Glucose 154 H POC Glucose 140 H 171 H Lactic Acid Calcium AST Alkaline Phosphatase Lactate Dehydrogenase Total Creatine Kinase CK-MB (CK-2) C-Reactive Protein Total Protein Albumin Urine WBC (Auto) Urine Creatinine Urine Total Protein Coronavirus (PCR) Crossmatch 06/16/20 06/16/20 06/16/20 10:46 12:33 17:54 WBC RBC Hgb Hct RDW Lymph % (Auto) [place] % (Auto) Eos % (Auto) Lymph # [place] # Seg Neutrophils % Seg Neuts % (Manual) Lymphocytes % (Manual) Seg Neutrophils # Seg Neutrophils # Man Lymphocytes # (Manual) Monocytes # (Manual) D-Dimer Heparin Anti-Xa Level 0.12 L ABG pH POC ABG pCO2 POC ABG pO2 ABG pO2 ABG HCO3 ABG O2 Saturation ABG Base Excess ABG Hemoglobin ABG Oxyhemoglobin VBG pH Oxyhemoglobin Sodium Potassium Chloride Carbon Dioxide BUN Creatinine Glucose POC Glucose 166 H 151 H Lactic Acid Calcium AST Alkaline Phosphatase Lactate Dehydrogenase Total Creatine Kinase CK-MB (CK-2) C-Reactive Protein Total Protein Albumin Urine WBC (Auto) Urine Creatinine Urine Total Protein Coronavirus (PCR) Crossmatch 06/16/20 06/17/20 06/17/20 18:47 00:00 02:19 WBC RBC Hgb Hct RDW Lymph % (Auto) [place] % (Auto) Eos % (Auto) Lymph # [place] # Seg Neutrophils % Seg Neuts % (Manual) Lymphocytes % (Manual) Seg Neutrophils # Seg Neutrophils # Man Lymphocytes # (Manual) Monocytes # (Manual) D-Dimer Heparin Anti-Xa Level 0.73 H 0.77 H ABG pH POC ABG pCO2 POC ABG pO2 ABG pO2 ABG HCO3 ABG O2 Saturation ABG Base Excess ABG Hemoglobin ABG Oxyhemoglobin VBG pH Oxyhemoglobin Sodium Potassium Chloride Carbon Dioxide BUN Creatinine Glucose POC Glucose 139 H Lactic Acid Calcium AST Alkaline Phosphatase Lactate Dehydrogenase Total Creatine Kinase CK-MB (CK-2) C-Reactive Protein Total Protein Albumin Urine WBC (Auto) Urine Creatinine Urine Total Protein Coronavirus (PCR) Crossmatch 06/17/20 06/17/20 06/17/20 06:07 11:42 16:43 WBC RBC Hgb Hct RDW Lymph % (Auto) [place] % (Auto) Eos % (Auto) Lymph # [place] # Seg Neutrophils % Seg Neuts % (Manual) Lymphocytes % (Manual) Seg Neutrophils # Seg Neutrophils # Man Lymphocytes # (Manual) Monocytes # (Manual) D-Dimer Heparin Anti-Xa Level 0.73 H ABG pH POC ABG pCO2 POC ABG pO2 ABG pO2 ABG HCO3 ABG O2 Saturation ABG Base Excess ABG Hemoglobin ABG Oxyhemoglobin VBG pH Oxyhemoglobin Sodium Potassium Chloride Carbon Dioxide BUN Creatinine Glucose POC Glucose 169 H 169 H Lactic Acid Calcium AST Alkaline Phosphatase Lactate Dehydrogenase Total Creatine Kinase CK-MB (CK-2) C-Reactive Protein Total Protein Albumin Urine WBC (Auto) Urine Creatinine Urine Total Protein Coronavirus (PCR) Crossmatch 06/17/20 06/17/20 06/17/20 18:18 23:08 23:16 WBC RBC Hgb Hct RDW Lymph % (Auto) [place] % (Auto) Eos % (Auto) Lymph # [place] # Seg Neutrophils % Seg Neuts % (Manual) Lymphocytes % (Manual) Seg Neutrophils # Seg Neutrophils # Man Lymphocytes # (Manual) Monocytes # (Manual) D-Dimer Heparin Anti-Xa Level 0.71 H ABG pH POC ABG pCO2 POC ABG pO2 ABG pO2 ABG HCO3 ABG O2 Saturation ABG Base Excess ABG Hemoglobin ABG Oxyhemoglobin VBG pH Oxyhemoglobin Sodium Potassium Chloride Carbon Dioxide BUN Creatinine Glucose POC Glucose 159 H 134 H Lactic Acid Calcium AST Alkaline Phosphatase Lactate Dehydrogenase Total Creatine Kinase CK-MB (CK-2) C-Reactive Protein Total Protein Albumin Urine WBC (Auto) Urine Creatinine Urine Total Protein Coronavirus (PCR) Crossmatch 06/18/20 06/18/20 06/18/20 04:42 05:52 11:50 WBC RBC Hgb Hct RDW Lymph % (Auto) [place] % (Auto) Eos % (Auto) Lymph # [place] # Seg Neutrophils % Seg Neuts % (Manual) Lymphocytes % (Manual) Seg Neutrophils # Seg Neutrophils # Man Lymphocytes # (Manual) Monocytes # (Manual) D-Dimer Heparin Anti-Xa Level ABG pH POC ABG pCO2 POC ABG pO2 ABG pO2 ABG HCO3 ABG O2 Saturation ABG Base Excess ABG Hemoglobin ABG Oxyhemoglobin VBG pH Oxyhemoglobin Sodium Potassium Chloride Carbon Dioxide BUN 44 H Creatinine Glucose 115 H POC Glucose 171 H 167 H Lactic Acid Calcium AST Alkaline Phosphatase Lactate Dehydrogenase Total Creatine Kinase CK-MB (CK-2) C-Reactive Protein Total Protein Albumin Urine WBC (Auto) Urine Creatinine Urine Total Protein Coronavirus (PCR) Crossmatch 06/18/20 06/19/20 06/19/20 23:46 05:48 07:52 WBC RBC Hgb Hct RDW Lymph % (Auto) [place] % (Auto) Eos % (Auto) Lymph # [place] # Seg Neutrophils % Seg Neuts % (Manual) Lymphocytes % (Manual) Seg Neutrophils # Seg Neutrophils # Man Lymphocytes # (Manual) Monocytes # (Manual) D-Dimer Heparin Anti-Xa Level ABG pH POC ABG pCO2 POC ABG pO2 ABG pO2 ABG HCO3 ABG O2 Saturation ABG Base Excess ABG Hemoglobin ABG Oxyhemoglobin VBG pH Oxyhemoglobin Sodium Potassium Chloride Carbon Dioxide BUN Creatinine Glucose POC Glucose 130 H 207 H 175 H Lactic Acid Calcium AST Alkaline Phosphatase Lactate Dehydrogenase Total Creatine Kinase CK-MB (CK-2) C-Reactive Protein Total Protein Albumin Urine WBC (Auto) Urine Creatinine Urine Total Protein Coronavirus (PCR) Crossmatch 06/19/20 06/19/20 06/20/20 11:42 22:54 05:17 WBC RBC Hgb Hct RDW Lymph % (Auto) [place] % (Auto) Eos % (Auto) Lymph # [place] # Seg Neutrophils % Seg Neuts % (Manual) Lymphocytes % (Manual) Seg Neutrophils # Seg Neutrophils # Man Lymphocytes # (Manual) Monocytes # (Manual) D-Dimer Heparin Anti-Xa Level ABG pH POC ABG pCO2 POC ABG pO2 ABG pO2 ABG HCO3 ABG O2 Saturation ABG Base Excess ABG Hemoglobin ABG Oxyhemoglobin VBG pH Oxyhemoglobin Sodium Potassium Chloride Carbon Dioxide BUN Creatinine Glucose POC Glucose 166 H 135 H 218 H Lactic Acid Calcium AST Alkaline Phosphatase Lactate Dehydrogenase Total Creatine Kinase CK-MB (CK-2) C-Reactive Protein Total Protein Albumin Urine WBC (Auto) Urine Creatinine Urine Total Protein Coronavirus (PCR) Crossmatch 06/20/20 06/20/20 06/20/20 12:04 16:25 16:35 WBC RBC Hgb Hct RDW Lymph % (Auto) [place] % (Auto) Eos % (Auto) Lymph # [place] # Seg Neutrophils % Seg Neuts % (Manual) Lymphocytes % (Manual) Seg Neutrophils # Seg Neutrophils # Man Lymphocytes # (Manual) Monocytes # (Manual) D-Dimer Heparin Anti-Xa Level ABG pH POC ABG pCO2 POC ABG pO2 ABG pO2 59.6 L ABG HCO3 28.7 H ABG O2 Saturation 93.5 L ABG Base Excess 3.4 H ABG Hemoglobin 7.2 L ABG Oxyhemoglobin VBG pH Oxyhemoglobin 91.3 L Sodium Potassium Chloride Carbon Dioxide BUN Creatinine Glucose POC Glucose 194 H 137 H Lactic Acid Calcium AST Alkaline Phosphatase Lactate Dehydrogenase Total Creatine Kinase CK-MB (CK-2) C-Reactive Protein Total Protein Albumin Urine WBC (Auto) Urine Creatinine Urine Total Protein Coronavirus (PCR) Crossmatch 06/20/20 06/21/20 06/21/20 23:59 06:25 12:01 WBC RBC Hgb Hct RDW Lymph % (Auto) [place] % (Auto) Eos % (Auto) Lymph # [place] # Seg Neutrophils % Seg Neuts % (Manual) Lymphocytes % (Manual) Seg Neutrophils # Seg Neutrophils # Man Lymphocytes # (Manual) Monocytes # (Manual) D-Dimer Heparin Anti-Xa Level ABG pH POC ABG pCO2 POC ABG pO2 ABG pO2 ABG HCO3 ABG O2 Saturation ABG Base Excess ABG Hemoglobin ABG Oxyhemoglobin VBG pH Oxyhemoglobin Sodium Potassium Chloride Carbon Dioxide BUN Creatinine Glucose POC Glucose 156 H 177 H 195 H Lactic Acid Calcium AST Alkaline Phosphatase Lactate Dehydrogenase Total Creatine Kinase CK-MB (CK-2) C-Reactive Protein Total Protein Albumin Urine WBC (Auto) Urine Creatinine Urine Total Protein Coronavirus (PCR) Crossmatch 06/21/20 06/21/20 06/22/20 17:04 21:51 05:06 WBC RBC Hgb Hct RDW Lymph % (Auto) [place] % (Auto) Eos % (Auto) Lymph # [place] # Seg Neutrophils % Seg Neuts % (Manual) Lymphocytes % (Manual) Seg Neutrophils # Seg Neutrophils # Man Lymphocytes # (Manual) Monocytes # (Manual) D-Dimer Heparin Anti-Xa Level ABG pH POC ABG pCO2 POC ABG pO2 ABG pO2 ABG HCO3 ABG O2 Saturation ABG Base Excess ABG Hemoglobin ABG Oxyhemoglobin VBG pH Oxyhemoglobin Sodium Potassium Chloride Carbon Dioxide BUN Creatinine Glucose POC Glucose 156 H 154 H 167 H Lactic Acid Calcium AST Alkaline Phosphatase Lactate Dehydrogenase Total Creatine Kinase CK-MB (CK-2) C-Reactive Protein Total Protein Albumin Urine WBC (Auto) Urine Creatinine Urine Total Protein Coronavirus (PCR) Crossmatch 06/22/20 06/22/20 06/22/20 11:20 15:27 16:58 WBC RBC Hgb Hct RDW Lymph % (Auto) [place] % (Auto) Eos % (Auto) Lymph # [place] # Seg Neutrophils % Seg Neuts % (Manual) Lymphocytes % (Manual) Seg Neutrophils # Seg Neutrophils # Man Lymphocytes # (Manual) Monocytes # (Manual) D-Dimer Heparin Anti-Xa Level ABG pH 7.206 L POC ABG pCO2 79.9 H POC ABG pO2 ABG pO2 ABG HCO3 ABG O2 Saturation ABG Base Excess ABG Hemoglobin 8.3 L ABG Oxyhemoglobin VBG pH Oxyhemoglobin Sodium Potassium Chloride Carbon Dioxide BUN Creatinine Glucose POC Glucose 181 H 230 H Lactic Acid Calcium AST Alkaline Phosphatase Lactate Dehydrogenase Total Creatine Kinase CK-MB (CK-2) C-Reactive Protein Total Protein Albumin Urine WBC (Auto) Urine Creatinine Urine Total Protein Coronavirus (PCR) Crossmatch 06/22/20 06/23/20 06/23/20 22:26 05:49 05:49 WBC RBC 2.58 L Hgb 7.4 L Hct 23.2 L RDW 17.0 H Lymph % (Auto) [place] % (Auto) 11.2 H Eos % (Auto) Lymph # 1.0 L [place] # Seg Neutrophils % Seg Neuts % (Manual) Lymphocytes % (Manual) Seg Neutrophils # Seg Neutrophils # Man Lymphocytes # (Manual) Monocytes # (Manual) D-Dimer Heparin Anti-Xa Level ABG pH POC ABG pCO2 POC ABG pO2 ABG pO2 ABG HCO3 ABG O2 Saturation ABG Base Excess ABG Hemoglobin ABG Oxyhemoglobin VBG pH Oxyhemoglobin Sodium Potassium Chloride Carbon Dioxide BUN 68 H Creatinine 2.4 H Glucose 198 H POC Glucose 195 H Lactic Acid Calcium AST Alkaline Phosphatase Lactate Dehydrogenase Total Creatine Kinase CK-MB (CK-2) C-Reactive Protein Total Protein Albumin Urine WBC (Auto) Urine Creatinine Urine Total Protein Coronavirus (PCR) Crossmatch 06/23/20 06/23/20 06/23/20 05:50 12:29 12:34 WBC RBC Hgb Hct RDW Lymph % (Auto) [place] % (Auto) Eos % (Auto) Lymph # [place] # Seg Neutrophils % Seg Neuts % (Manual) Lymphocytes % (Manual) Seg Neutrophils # Seg Neutrophils # Man Lymphocytes # (Manual) Monocytes # (Manual) D-Dimer Heparin Anti-Xa Level ABG pH POC ABG pCO2 54.7 H POC ABG pO2 68.8 L ABG pO2 ABG HCO3 ABG O2 Saturation ABG Base Excess ABG Hemoglobin 9.8 L ABG Oxyhemoglobin 92.6 L VBG pH Oxyhemoglobin Sodium Potassium Chloride Carbon Dioxide BUN Creatinine Glucose POC Glucose 202 H 218 H Lactic Acid Calcium AST Alkaline Phosphatase Lactate Dehydrogenase Total Creatine Kinase CK-MB (CK-2) C-Reactive Protein Total Protein Albumin Urine WBC (Auto) Urine Creatinine Urine Total Protein Coronavirus (PCR) Crossmatch 06/23/20 06/23/20 06/24/20 16:02 22:22 01:06 WBC RBC Hgb Hct RDW Lymph % (Auto) [place] % (Auto) Eos % (Auto) Lymph # [place] # Seg Neutrophils % Seg Neuts % (Manual) Lymphocytes % (Manual) Seg Neutrophils # Seg Neutrophils # Man Lymphocytes # (Manual) Monocytes # (Manual) D-Dimer Heparin Anti-Xa Level ABG pH POC ABG pCO2 POC ABG pO2 ABG pO2 ABG HCO3 ABG O2 Saturation ABG Base Excess ABG Hemoglobin ABG Oxyhemoglobin VBG pH Oxyhemoglobin Sodium Potassium Chloride Carbon Dioxide BUN Creatinine Glucose POC Glucose 190 H 166 H 171 H Lactic Acid Calcium AST Alkaline Phosphatase Lactate Dehydrogenase Total Creatine Kinase CK-MB (CK-2) C-Reactive Protein Total Protein Albumin Urine WBC (Auto) Urine Creatinine Urine Total Protein Coronavirus (PCR) Crossmatch 06/24/20 06/24/20 06/24/20 04:48 05:35 11:48 WBC RBC Hgb Hct RDW Lymph % (Auto) [place] % (Auto) Eos % (Auto) Lymph # [place] # Seg Neutrophils % Seg Neuts % (Manual) Lymphocytes % (Manual) Seg Neutrophils # Seg Neutrophils # Man Lymphocytes # (Manual) Monocytes # (Manual) D-Dimer Heparin Anti-Xa Level ABG pH POC ABG pCO2 POC ABG pO2 ABG pO2 ABG HCO3 ABG O2 Saturation ABG Base Excess ABG Hemoglobin ABG Oxyhemoglobin VBG pH Oxyhemoglobin Sodium Potassium Chloride Carbon Dioxide BUN 75 H Creatinine 2.6 H Glucose 179 H POC Glucose 172 H 153 H Lactic Acid Calcium AST Alkaline Phosphatase Lactate Dehydrogenase Total Creatine Kinase CK-MB (CK-2) C-Reactive Protein Total Protein Albumin Urine WBC (Auto) Urine Creatinine Urine Total Protein Coronavirus (PCR) Crossmatch 06/24/20 06/24/20 06/25/20 16:38 21:52 12:00 WBC RBC Hgb Hct RDW Lymph % (Auto) [place] % (Auto) Eos % (Auto) Lymph # [place] # Seg Neutrophils % Seg Neuts % (Manual) Lymphocytes % (Manual) Seg Neutrophils # Seg Neutrophils # Man Lymphocytes # (Manual) Monocytes # (Manual) D-Dimer Heparin Anti-Xa Level ABG pH POC ABG pCO2 POC ABG pO2 ABG pO2 ABG HCO3 ABG O2 Saturation ABG Base Excess ABG Hemoglobin ABG Oxyhemoglobin VBG pH Oxyhemoglobin Sodium Potassium Chloride Carbon Dioxide BUN Creatinine Glucose POC Glucose 123 H 115 H 203 H Lactic Acid Calcium AST Alkaline Phosphatase Lactate Dehydrogenase Total Creatine Kinase CK-MB (CK-2) C-Reactive Protein Total Protein Albumin Urine WBC (Auto) Urine Creatinine Urine Total Protein Coronavirus (PCR) Crossmatch 06/25/20 06/25/20 06/25/20 15:43 16:37 23:02 WBC RBC Hgb Hct RDW Lymph % (Auto) [place] % (Auto) Eos % (Auto) Lymph # [place] # Seg Neutrophils % Seg Neuts % (Manual) Lymphocytes % (Manual) Seg Neutrophils # Seg Neutrophils # Man Lymphocytes # (Manual) Monocytes # (Manual) D-Dimer Heparin Anti-Xa Level ABG pH POC ABG pCO2 POC ABG pO2 ABG pO2 ABG HCO3 ABG O2 Saturation ABG Base Excess ABG Hemoglobin ABG Oxyhemoglobin VBG pH Oxyhemoglobin Sodium Potassium Chloride Carbon Dioxide BUN 71 H Creatinine 1.8 H Glucose 170 H POC Glucose 191 H 126 H Lactic Acid Calcium 8.2 L AST Alkaline Phosphatase Lactate Dehydrogenase Total Creatine Kinase CK-MB (CK-2) C-Reactive Protein Total Protein Albumin Urine WBC (Auto) Urine Creatinine Urine Total Protein Coronavirus (PCR) Crossmatch 06/26/20 06/26/20 06/26/20 06:34 06:34 09:27 WBC RBC 2.41 L Hgb 6.9 L Hct 21.5 L RDW 16.7 H Lymph % (Auto) 10.9 L [place] % (Auto) 9.6 H Eos % (Auto) Lymph # 0.7 L [place] # Seg Neutrophils % 75.4 H Seg Neuts % (Manual) Lymphocytes % (Manual) Seg Neutrophils # Seg Neutrophils # Man Lymphocytes # (Manual) Monocytes # (Manual) D-Dimer Heparin Anti-Xa Level ABG pH POC ABG pCO2 POC ABG pO2 ABG pO2 ABG HCO3 ABG O2 Saturation ABG Base Excess ABG Hemoglobin ABG Oxyhemoglobin VBG pH Oxyhemoglobin Sodium Potassium Chloride Carbon Dioxide BUN 77 H Creatinine 1.9 H Glucose 190 H POC Glucose Lactic Acid Calcium AST Alkaline Phosphatase Lactate Dehydrogenase Total Creatine Kinase CK-MB (CK-2) C-Reactive Protein Total Protein Albumin Urine WBC (Auto) Urine Creatinine Urine Total Protein Coronavirus (PCR) Crossmatch See Detail 06/26/20 06/26/20 06/26/20 12:15 16:28 17:28 WBC RBC Hgb Hct RDW Lymph % (Auto) [place] % (Auto) Eos % (Auto) Lymph # [place] # Seg Neutrophils % Seg Neuts % (Manual) Lymphocytes % (Manual) Seg Neutrophils # Seg Neutrophils # Man Lymphocytes # (Manual) Monocytes # (Manual) D-Dimer Heparin Anti-Xa Level ABG pH POC ABG pCO2 POC ABG pO2 ABG pO2 ABG HCO3 ABG O2 Saturation ABG Base Excess ABG Hemoglobin ABG Oxyhemoglobin VBG pH Oxyhemoglobin Sodium Potassium Chloride Carbon Dioxide BUN Creatinine Glucose POC Glucose 187 H 149 H 189 H Lactic Acid Calcium AST Alkaline Phosphatase Lactate Dehydrogenase Total Creatine Kinase CK-MB (CK-2) C-Reactive Protein Total Protein Albumin Urine WBC (Auto) Urine Creatinine Urine Total Protein Coronavirus (PCR) Crossmatch 06/26/20 06/26/20 06/26/20 18:30 18:30 18:30 WBC RBC 2.87 L Hgb 8.2 L Hct 25.9 L RDW 17.8 H Lymph % (Auto) [place] % (Auto) Eos % (Auto) Lymph # [place] # Seg Neutrophils % Seg Neuts % (Manual) 83.0 H Lymphocytes % (Manual) 8.0 L Seg Neutrophils # Seg Neutrophils # Man Lymphocytes # (Manual) 0.6 L Monocytes # (Manual) D-Dimer Heparin Anti-Xa Level ABG pH POC ABG pCO2 POC ABG pO2 ABG pO2 ABG HCO3 ABG O2 Saturation ABG Base Excess ABG Hemoglobin ABG Oxyhemoglobin VBG pH Oxyhemoglobin Sodium Potassium Chloride Carbon Dioxide BUN 80 H Creatinine 2.1 H Glucose 260 H POC Glucose Lactic Acid 4.30 H* Calcium 8.3 L AST Alkaline Phosphatase Lactate Dehydrogenase Total Creatine Kinase CK-MB (CK-2) C-Reactive Protein Total Protein Albumin Urine WBC (Auto) Urine Creatinine Urine Total Protein Coronavirus (PCR) Crossmatch 06/26/20 06/27/20 06/27/20 18:50 01:00 04:29 WBC RBC Hgb Hct RDW Lymph % (Auto) [place] % (Auto) Eos % (Auto) Lymph # [place] # Seg Neutrophils % Seg Neuts % (Manual) Lymphocytes % (Manual) Seg Neutrophils # Seg Neutrophils # Man Lymphocytes # (Manual) Monocytes # (Manual) D-Dimer Heparin Anti-Xa Level ABG pH 7.296 L POC ABG pCO2 POC ABG pO2 ABG pO2 116.5 H 200.5 H ABG HCO3 28.4 H ABG O2 Saturation 99.3 H ABG Base Excess 3.7 H ABG Hemoglobin 5.6 L ABG Oxyhemoglobin VBG pH Oxyhemoglobin Sodium Potassium Chloride Carbon Dioxide BUN Creatinine Glucose POC Glucose 123 H Lactic Acid Calcium AST Alkaline Phosphatase Lactate Dehydrogenase Total Creatine Kinase CK-MB (CK-2) C-Reactive Protein Total Protein Albumin Urine WBC (Auto) Urine Creatinine Urine Total Protein Coronavirus (PCR) Crossmatch 06/27/20 06/27/20 06/27/20 05:00 05:00 05:00 WBC RBC 2.75 L Hgb 7.9 L Hct 24.3 L RDW 17.1 H Lymph % (Auto) 8.5 L [place] % (Auto) 12.6 H Eos % (Auto) Lymph # 0.7 L [place] # 1.0 H Seg Neutrophils % 77.5 H Seg Neuts % (Manual) Lymphocytes % (Manual) Seg Neutrophils # Seg Neutrophils # Man Lymphocytes # (Manual) Monocytes # (Manual) D-Dimer Heparin Anti-Xa Level ABG pH POC ABG pCO2 POC ABG pO2 ABG pO2 ABG HCO3 ABG O2 Saturation ABG Base Excess ABG Hemoglobin ABG Oxyhemoglobin VBG pH Oxyhemoglobin Sodium Potassium Chloride Carbon Dioxide BUN 80 H Creatinine 2.0 H Glucose 129 H POC Glucose Lactic Acid 0.60 L Calcium 7.9 L AST Alkaline Phosphatase Lactate Dehydrogenase Total Creatine Kinase CK-MB (CK-2) C-Reactive Protein Total Protein Albumin Urine WBC (Auto) Urine Creatinine Urine Total Protein Coronavirus (PCR) Crossmatch 06/27/20 06/27/20 06/27/20 05:23 13:46 18:43 WBC RBC Hgb 7.7 L Hct 22.1 L RDW Lymph % (Auto) [place] % (Auto) Eos % (Auto) Lymph # [place] # Seg Neutrophils % Seg Neuts % (Manual) Lymphocytes % (Manual) Seg Neutrophils # Seg Neutrophils # Man Lymphocytes # (Manual) Monocytes # (Manual) D-Dimer Heparin Anti-Xa Level ABG pH POC ABG pCO2 POC ABG pO2 ABG pO2 ABG HCO3 ABG O2 Saturation ABG Base Excess ABG Hemoglobin ABG Oxyhemoglobin VBG pH Oxyhemoglobin Sodium Potassium Chloride Carbon Dioxide BUN Creatinine Glucose POC Glucose 109 H 158 H Lactic Acid Calcium AST Alkaline Phosphatase Lactate Dehydrogenase Total Creatine Kinase CK-MB (CK-2) C-Reactive Protein Total Protein Albumin Urine WBC (Auto) Urine Creatinine Urine Total Protein Coronavirus (PCR) Crossmatch 09/19/20 09/20/20 09/20/20 23:46 04:05 09:47 WBC RBC 2.53 L Hgb 7.4 L Hct 22.2 L RDW 16.8 H Lymph % (Auto) [place] % (Auto) 13.5 H Eos % (Auto) Lymph # 1.1 L [place] # 1.0 H Seg Neutrophils % Seg Neuts % (Manual) Lymphocytes % (Manual) Seg Neutrophils # Seg Neutrophils # Man Lymphocytes # (Manual) Monocytes # (Manual) D-Dimer Heparin Anti-Xa Level ABG pH POC ABG pCO2 POC ABG pO2 ABG pO2 102.7 H ABG HCO3 28.7 H ABG O2 Saturation ABG Base Excess 3.7 H ABG Hemoglobin ABG Oxyhemoglobin VBG pH Oxyhemoglobin Sodium Potassium Chloride Carbon Dioxide BUN Creatinine Glucose POC Glucose 142 H Lactic Acid Calcium AST Alkaline Phosphatase Lactate Dehydrogenase Total Creatine Kinase CK-MB (CK-2) C-Reactive Protein Total Protein Albumin Urine WBC (Auto) Urine Creatinine Urine Total Protein Coronavirus (PCR) Crossmatch 06/28/20 09:47 WBC RBC Hgb Hct RDW Lymph % (Auto) [place] % (Auto) Eos % (Auto) Lymph # [place] # Seg Neutrophils % Seg Neuts % (Manual) Lymphocytes % (Manual) Seg Neutrophils # Seg Neutrophils # Man Lymphocytes # (Manual) Monocytes # (Manual) D-Dimer Heparin Anti-Xa Level ABG pH POC ABG pCO2 POC ABG pO2 ABG pO2 ABG HCO3 ABG O2 Saturation ABG Base Excess ABG Hemoglobin ABG Oxyhemoglobin VBG pH Oxyhemoglobin Sodium Potassium Chloride Carbon Dioxide BUN 80 H Creatinine 1.5 H Glucose 139 H POC Glucose Lactic Acid Calcium 7.9 L AST Alkaline Phosphatase Lactate Dehydrogenase Total Creatine Kinase CK-MB (CK-2) C-Reactive Protein Total Protein 5.0 L Albumin 2.1 L Urine WBC (Auto) Urine Creatinine Urine Total Protein Coronavirus (PCR) Crossmatch Chest x-ray: image reviewed Allied health notes reviewed: RT
[2020-06-28] MEDS ORDERED: VANCOMYCIN/NS 1 GM/250 ML 1 GM/250 ML BAG IV SCH (12:00)
[2020-06-28 13:13] LABS: Hematocrit 20.9 % (30.3-42.9); Hemoglobin 7.3 gm/dl (10.1-14.3); Mean Corpuscular HGB Conc 35 % (30-34); Mean Corpuscular Volume 88 fl (79-97); Platelet Count 388 K/mm3 (140-440); Red Blood Count 2.38 M/mm3 (3.65-5.03); Red Cell Distribution Width 16.7 % (13.2-15.2)
[2020-06-28 13:17] LABS: Calcium 7.5 mg/dL (8.4-10.2)
[2020-06-28] MEDS: VANCOMYCIN 2,000 MG in SODIUM CHLORIDE 0.9% 500 ML 500 ML IV SCH (16:00)
--- NOTE | 2020-06-28 16:15 | Progress Note ---
Assessment and Plan --Febrile illness Start empiric antibiotics with vancomycin and Rocephin Panculture, reconsult ID -- Acute hypoxemic respiratory failure From COVID-19 viral infection, intubated on admission extubated on 06/12/20 then placed on high flow o2 patient developed another respiratory arrest on 06/26 - reintubated CC following -- s/p Cardiac arrest on admission and on 06/26 Cardiology team on board Conservative management as per cardiology --COVID-19 positive 05/28/2020 Completed treatment, ID following --Superficial left cephalic vein DVT/elevated D-dimers[COVID 19] Patient is on heparin drip from 05/29/20 D-dimers improved [phone] s/p heparin drip, Discussed with ID, treated with Eliquis 5 mg twice a day for 1 week[per ID] stop date 06/26/2020 -- Acute metabolic encephalopathy, POA likely from sepsis and s/p cardiac arrest with possible anoxic injury -- Acute renal failure: likely ATN Cr slowly improving Avoid ACEI and other nephrotoxic medications Nephrology following -- Coronavirus infection with b/l PNA Completed remdesivir on 06/02 Completed dexamethasone - Last dose 06/07 ID recs appreciated. --Klebsiella pneumonia: Completed antibiotics --CHF (congestive heart failure) Cardiology following. Ef 45% -- Coffee ground emesis -Stress ulcers Possible stress ulcers, On PPI H/H again dropped - transfuse GI evaluation -- Hypertension; moderate control Continue amlodipine, coreg, clonidine and hydralazine --Mild LFT elevation: likely from COVID-19. cont to monitor -- DVT prophylaxis Eliquis, SCD to bilateral lower extremities while in bed -- Advance care planning Patient is critically ill with multiple medical problems Poor prognosis, family updated and requesting full code The high probability of a clinically significant, sudden or life threatening deterioration of the [CVS, renal, respiratory, LEAD RADIATION THERAPIST] system(s) required my full and direct attention, intervention and personal management. The aggregate critical care time was [34] minutes. This time is in addition to time spent performing reported procedures but includes the following: [x] Data Review and interpretation [x] Patient assessment and monitoring of vital signs [x] Documentation [x] Medication orders and management Brief history: 64 YO Female with a medical history of HTN, Diastolic CHF, Pulmonary HTN, DM, Obesity Hypoventilation Syndrome presents to ED for evaluation of shortness of breath. As per staff, the EMS was notified for difficulty breathing. Upon arrival to the patient's home the patient was found to be in distress and was subsequently transported to [facility] for further evaluation and care. In route to [facility] the patient developed cardiac arrest and was treated in accordance with ACLS protocol with return of ROSC. Patient was seen and evaluated in the emergency department and was intubated and placed on ventilatory support. Patient admitted to ICU. Critical care team consulted in ED. She was found to have COVID-19 infection and was started on steroids and remdesivir. ID was consulted. Cardiology was consulted for her systolic heart failure and cardiac arrest. Patient completed treatment for COVID-19, then develop superimposed bacterial pneumonia with Klebsiella. She is now extubated, but remains confused and requiring high flow O2 and intermittent BiPAP. 06/01. Patient remains intubated and on ventilatory support today. Patient has multiple organ system failure and has poor prognosis. Patient did not experience significant medical decompensation overnight but no improvement with current therapy. 06/02. Remains intubated. her BP is elevated. Started on nicardipine drip. Cardiology following. 06/03-06/04. BP is better. Hb stable. Completed remdesivir. ID , Cardiology and Critical care team on board 06/05. Bump in creatinine. I/O reviewed. Nephrology consulted. 06/06. Has slight improvement in renal function. Nephrology on board. On SBT today. Vitals stable. 06/07. Stable renal function. No need for HD as per nephrology. She is making urine. Plan for SBT. 06/08. Off sedation and very lethargic. Her BUN is going up - effect of steroids vs GI bleed. Her hemoglobin remains stable. Will check stool guaiac. Nephrology is following. WBC bumped to 16 today. 06/09: remains intubated, wbc trended up, Cr slightly trending down. cont TF, wean off vent as tolerated. 06/10: Cr trending down, cont to wean off vent as tolerated. 06/10; Cr much improved, cont iv fluid, tolerating tube feeding. stopped vac, iv cefepime for total 10 days. 06/11; creatinine 1.5 today, sodium level has normalized. Continue tube feeding, continue cefepime for 10 days. Continue to wean off as tolerated. 06/12: planned for extubation today 06/13: extubated yesterday, now on Bipap 06/14: patient on Bipap, remains on TF, restraint. cont to follow clinically 06/15: patient on high flow O2,remains on TF, restraint. cont to follow clinically. transfer to [facility] 06/16: Patient remains on high flow O2, intermittently on BiPAP. Tolerating tube feeding. cont to monitor at [facility] 06/17; patient on BiPAP. Remains confused and on tube feeding. Continue to monitor at [facility]. Wean off O2 as tolerated. 06/18; patient feels slightly better on high flow oxygen, minimally communicative, stable to be transferred out of [facility] to telemetry 06/20; remains hypoxic on high flow oxygen, today noncommunicative sleeping all the time, vital signs noted 06/21; more alert and awake confused at times and pulling, restraint for safety, on high flow oxygen We will request physical therapy once more stable 06/22; PT unable to assess due to safety concerns, remains hypoxic on high flow oxygen, BiPAP at night. minimally communicative 06/23: Remains on high flow O2, order for speech eval, continue tube feeding. Creatinine noted to be elevated today -2.4, increase IV fluid hydration. 06/24: Kidney function started worsening 06/23 -likely from hypotension. patient had episodes of hypotension on 06/22. Kidney function is unchanged from yesterday. No further episodes of hypotension. Follow-up electrolytes and renal function. patient remains on high flow O2 06/25: patient on 15L o2 with n/c. on Bipap at night. follow renal function and follow bmp . Placement not possible as patient unfunded. wean off o2 as tolerated. 06/26: hb 6.9 today, transfuse one unit. wean off from O2 as tolerated. check stool for occult blood. consult GI if stool is positive for blood. 06/27; Code blue called yesterday. ACLS initiated, Pt found to have Asystolic Arrest with eventual return of perfusing cardiac rhythm. patient reintubated during code, transferred to ICU, called family and updated 06/28: Patient is spiking fever, started on empiric antibiotic, ordered blood urine and sputum culture. We will reconsult ID. Discussed with patient's son in the evening. Family wants to continue full CODE STATUS. Discussed with critical care attending and RN in length. Subjective Date of service: 06/28/20 Principal diagnosis: Ac hypoxemic resp failure; COVID-19; pneumonia; CHF; Pulm HTN; OHS; DM II Interval history: Patient seen and examined Vitals reviewed, intubated Tolerating tube feeding Discussed with RN at the bedside Objective - Exam Narrative Exam: General appearance: Present: mild distress, well-nourished, obese (Morbidly obese), other (intubated) - EENT Eyes: No congestion or icterus - Neck Neck: Present: supple, normal ROM - Respiratory Respiratory effort: normal Respiratory: bilateral: diminished, rhonchi, negative: rales, wheezing - Cardiovascular Rhythm: regular Heart Sounds: Present: S1 & S2 - Extremities Extremities: no ischemia, No edema - Abdominal General gastrointestinal: soft, non-tender, non-distended, normal bowel sounds - Integumentary Integumentary: Present: clear, warm - Psychiatric Psychiatric: other (intubated) - Neurologic Neurologic: other (intubated) - Constitutional Vitals: Vital Signs - 12hr 06/28/20 06/28/20 06/28/20 04:16 04:30 04:46 Temperature Pulse Rate 83 88 88 Respiratory 13 18 11 L Rate Blood Pressure 135/53 135/53 152/61 O2 Sat by Pulse 100 100 100 Oximetry 06/28/20 06/28/20 06/28/20 05:00 05:16 05:22 Temperature Pulse Rate 84 83 85 Respiratory 16 21 Rate Blood Pressure 152/61 144/53 144/73 O2 Sat by Pulse 100 99 Oximetry 06/28/20 06/28/20 06/28/20 05:30 05:46 06:00 Temperature Pulse Rate 87 84 86 Respiratory 11 L 20 16 Rate Blood Pressure 144/53 161/65 161/65 O2 Sat by Pulse 99 100 99 Oximetry 06/28/20 06/28/20 06/28/20 06:16 06:30 06:46 Temperature Pulse Rate 89 86 84 Respiratory 13 15 20 Rate Blood Pressure 151/68 151/68 144/53 O2 Sat by Pulse 100 99 99 Oximetry 06/28/20 06/28/20 06/28/20 07:00 07:16 07:30 Temperature Pulse Rate 94 H 84 88 Respiratory 20 19 20 Rate Blood Pressure 144/53 158/65 158/65 O2 Sat by Pulse 98 99 99 Oximetry 06/28/20 06/28/20 06/28/20 07:38 07:46 08:00 Temperature Pulse Rate 82 82 86 Respiratory 20 19 Rate Blood Pressure 153/62 153/62 153/62 O2 Sat by Pulse 98 99 99 Oximetry 06/28/20 06/28/20 06/28/20 10:21 10:23 12:00 Temperature 100.1 F H Pulse Rate 85 86 Respiratory Rate Blood Pressure 163/69 163/69 O2 Sat by Pulse Oximetry 06/28/20 06/28/20 06/28/20 12:05 15:29 16:00 Temperature 100.3 F H Pulse Rate 81 85 Respiratory Rate Blood Pressure 171/61 169/62 O2 Sat by Pulse 99 99 Oximetry 06/28/20 16:09 Temperature Pulse Rate 82 Respiratory Rate Blood Pressure 170/61 O2 Sat by Pulse Oximetry - Labs CBC & Chem 7: 06/28/20 12:30 06/28/20 12:30 Labs: Abnormal lab results 06/27/20 06/27/20 06/27/20 Range/Units 17:25 18:43 23:46 RBC (3.65-5.03) M/mm3 Hgb 7.7 L (10.1-14.3) gm/dl Hct 22.1 L (30.3-42.9) % MCHC (30-34) % RDW (13.2-15.2) % [place] % (Auto) (0.0-7.3) % Lymph # (1.2-5.4) K/mm3 [place] # (0.0-0.8) K/mm3 ABG pO2 (80.0-90.0) mm Hg ABG HCO3 (20.0-26.0) mmol/L ABG Base Excess (-2.0-3.0) mmol/L BUN (7-17) mg/dL Creatinine (0.6-1.2) mg/dL Glucose (65-100) mg/dL POC Glucose 162 H 142 H (70-105) Calcium (8.4-10.2) mg/dL Total Protein (6.3-8.2) g/dL Albumin (3.9-5) g/dL 06/28/20 06/28/20 06/28/20 Range/Units 04:05 09:47 09:47 RBC 2.53 L (3.65-5.03) M/mm3 Hgb 7.4 L (10.1-14.3) gm/dl Hct 22.2 L (30.3-42.9) % MCHC (30-34) % RDW 16.8 H (13.2-15.2) % [place] % (Auto) 13.5 H (0.0-7.3) % Lymph # 1.1 L (1.2-5.4) K/mm3 [place] # 1.0 H (0.0-0.8) K/mm3 ABG pO2 102.7 H (80.0-90.0) mm Hg ABG HCO3 28.7 H (20.0-26.0) mmol/L ABG Base Excess 3.7 H (-2.0-3.0) mmol/L BUN 80 H (7-17) mg/dL Creatinine 1.5 H (0.6-1.2) mg/dL Glucose 139 H (65-100) mg/dL POC Glucose (70-105) Calcium 7.9 L (8.4-10.2) mg/dL Total Protein 5.0 L (6.3-8.2) g/dL Albumin 2.1 L (3.9-5) g/dL 06/28/20 06/28/20 Range/Units 12:30 12:30 RBC 2.38 L (3.65-5.03) M/mm3 Hgb 7.3 L (10.1-14.3) gm/dl Hct 20.9 L (30.3-42.9) % MCHC 35 H (30-34) % RDW 16.7 H (13.2-15.2) % [place] % (Auto) (0.0-7.3) % Lymph # (1.2-5.4) K/mm3 [place] # (0.0-0.8) K/mm3 ABG pO2 (80.0-90.0) mm Hg ABG HCO3 (20.0-26.0) mmol/L ABG Base Excess (-2.0-3.0) mmol/L BUN 74 H (7-17) mg/dL Creatinine 1.5 H (0.6-1.2) mg/dL Glucose 143 H (65-100) mg/dL POC Glucose (70-105) Calcium 7.5 L (8.4-10.2) mg/dL Total Protein (6.3-8.2) g/dL Albumin (3.9-5) g/dL
--- NOTE | 2020-06-28 20:48 | Consultation ---
REFERRING PHYSICIAN: Chanell Xie MD INDICATION: GI bleed. HISTORY OF PRESENT ILLNESS: The patient is a 64-year-old obese female with a history of hypertension, CHF, pulmonary hypertension, obesity, who has been seen by GI for reported rectal bleeding. The patient presented with shortness of breath with respiratory failure and has subsequently been intubated on the vent. The patient has been managed for hypoxic respiratory failure. The patient's team reports that the patient reportedly had some coffee-ground emesis via NG tube yesterday and GI is consulted per team. Other than that, no obvious signs of bleeding except for drop in her blood counts minimally. Denies any other specific GI complaints. Of note, it should be noted that she has had COVID positive and was subsequently treated. PAST MEDICAL HISTORY: 1. Hypertension. 2. Congestive heart failure. 3. Diabetes. 4. Pulmonary hypertension. 5. Hypoventilation syndrome. ALLERGIES: No known drug allergies. MEDICATIONS: Reviewed and updated in chart. SOCIAL HISTORY: Reportedly no alcohol. FAMILY HISTORY: Negative for colon cancer. REVIEW OF SYSTEMS: GENERAL: Reportedly, prior general weakness. HEENT: Negative. PULMONARY: Some shortness of breath. CARDIOVASCULAR: Denies chest pain. GASTROINTESTINAL: No other complaints. A 13-point review of systems otherwise negative. PHYSICAL EXAMINATION: VITAL SIGNS: Temperature of 97.7, pulse 80, respirations 18, blood pressure 150/90. GENERAL: Intubated, sedated, in no acute distress. HEENT: Pupils equal, round and reactive. PULMONARY: Rhonchi. CARDIOVASCULAR: Regular rhythm. Normal S1, S2. ABDOMEN: Palpable soft. SKIN: No obvious rashes. LABORATORY DATA: Pertinent for white count of 8.2, hemoglobin and hematocrit of 7.3 and 20.9, platelet count of 388. Chem-7 pertinent only for BUN and creatinine of 74 and 1.5. LFTs within normal limits. ASSESSMENT AND PLAN: A 64-year-old female with past medical history noted above, admitted with hypoxic respiratory failure and COVID positive pneumonia, still intubated on the vent, now reportedly had some coffee emesis yesterday, but now no further bleeding. Given her current status would want to be conservative with no plans for GI intervention unless absolutely necessary. PLAN: 1. Follow hematocrit and transfuse as needed. 2. PPI IV b.i.d. 3. Avoid NSAIDs and aspirin as possible. 4. No plans to scope unless absolutely necessary. 5. We will follow for now. JOB# [id number] CAB/NTS
[2020-06-28] MEDS: cloNIDine 0.2 MG TAB PO SCH ×2 (21:25→21:29)
[2020-06-28] MEDS: CEFEPIME/NS 2 GM/100 ML 2 GM/100 ML BAG IV SCH ×2 (21:39→21:40)
[2020-06-28] MEDS ORDERED: cefTRIAXone/NS 1 GM/50 ML 1 GM/50 ML BAG IV SCH (22:00)
[2020-06-28] MEDS: INSULIN GLARGINE 100 UNITS/ML SUB-Q SCH (22:00)
[2020-06-29] MEDS: INSULIN LISPRO 100 UNIT/ML VIAL 3 mL SUB-Q SCH ×4 (00:52→18:28)
[2020-06-29] MEDS: ACETAMINOPHEN 325 MG/10.15 ML ORAL LIQD UNIT DOSE FEEDTUBE PRN ×3 (01:43→21:18)
[2020-06-29 04:44] LABS: ABG Base Excess 2.5 mmol/L (-2.0-3.0); ABG HCO3 26.9 mmol/L (20.0-26.0); ABG Methemoglobin 0.5 % (0.0-1.5); ABG Oxygen Saturation 97.2 % (95.0-99.0); ABG PCO2 40.7 mm Hg; ABG PH 7.438 pH Units (7.350-7.450); ABG PO2 89.2 mm Hg (80.0-90.0)
[2020-06-29 05:03] LABS: Basophils # (Auto) 0.1 K/mm3 (0.0-0.1); Basophils % (Auto) 0.7 % (0.0-1.8); Eosinophils # (Auto) 0.4 K/mm3 (0.0-0.4); Eosinophils % (Auto) 4.2 % (0.0-4.3); Hematocrit 22.4 % (30.3-42.9); Hemoglobin 7.3 gm/dl (10.1-14.3); Lymphocytes # (Auto) 1.1 K/mm3 (1.2-5.4); Lymphocytes % (Auto) 13.3 % (13.4-35.0); Mean Corpuscular HGB Conc 33 % (30-34); Mean Corpuscular Volume 88 fl (79-97); Monocytes % (Auto) 12.5 % (0.0-7.3); Platelet Count 377 K/mm3 (140-440); Red Blood Count 2.55 M/mm3 (3.65-5.03); Red Cell Distribution Width 16.4 % (13.2-15.2)
[2020-06-29 05:20] LABS: Calcium 7.4 mg/dL (8.4-10.2)
[2020-06-29] MEDS: METOCLOPRAMIDE 10 MG/2 ML INJ IV SCH ×4 (06:17→21:21)
[2020-06-29] MEDS: hydrALAZINE 25 MG TAB PO SCH ×3 (06:38→21:20)
[2020-06-29] MEDS: CEFEPIME/NS 2 GM/100 ML 2 GM/100 ML BAG IV SCH ×3 (06:39→21:21)
[2020-06-29] MEDS: GLYCOPYRROLATE 2 MG TAB PO SCH ×3 (09:41→21:20)
[2020-06-29] MEDS: MAGIC MOUTHWASH 30ML PO SCH ×3 (09:41→22:00)
[2020-06-29] MEDS: amLODIPine 10 MG TAB PO SCH (09:42)
[2020-06-29] MEDS: LANSOPRAZOLE 30 MG SOLUTAB FEEDTUBE SCH ×2 (09:42→21:19)
[2020-06-29] MEDS: levETIRAcetam 500 MG/5 ML ORAL LIQD PO SCH ×2 (09:42→21:18)
[2020-06-29] MEDS: carvediloL 12.5 MG TAB PO SCH ×2 (09:43→21:19)
[2020-06-29] MEDS: cloNIDine 0.2 MG TAB PO SCH ×3 (09:43→21:42)
[2020-06-29] MEDS: SCOPOLAMINE TRANSDERMAL PATCH 72 HR TD SCH (09:44)
[2020-06-29] MEDS: SENNOSIDES ORAL LIQD 8.8 MG/5 ML ORAL LIQD FEEDTUBE SCH ×2 (09:44→22:00)
[2020-06-29] MEDS: VANCOMYCIN 2,000 MG in SODIUM CHLORIDE 0.9% 500 ML 500 ML IV SCH (09:44)
--- NOTE | 2020-06-29 10:36 | Progress Note ---
Assessment and Plan - Patient Problems (1) Acute kidney injury (AVANI) with acute tubular necrosis (ATN) Current Visit: Yes Status: Acute Plan to address problem: Pt s/p cardiac arrest/code blue and ACLS, however renal function remains stable, remains non-oliguric. Follow-up electrolytes and renal function, maintain MAP > 65mmHg, avoid nephrotoxins, IV contrast (2) Pneumonia due to COVID-19 virus Current Visit: Yes Status: Acute Plan to address problem: Patient has completed 5 days of Remdesevir. Completed course of steroids. (3) Acute hypoxemic respiratory failure Current Visit: Yes Status: Acute Plan to address problem: Being managed by pulmonary. S/p Extubation 06/12, now reintubated on 06/26 s/p code blue. (4) Hyperkalemia Current Visit: Yes Status: Acute Plan to address problem: K normalized (5) Cardiac arrest Current Visit: Yes Status: Acute Plan to address problem: s/p ACLS with eventual ROSC (6) Cardiomyopathy Current Visit: No Status: Acute Qualifiers: Cardiomyopathy type: unspecified Qualified Code(s): I42.9 - Cardiomyopathy, unspecified (7) Type 2 diabetes mellitus with diabetic chronic kidney disease Current Visit: Yes Status: Acute Plan to address problem: DM management as per primary attending Subjective Date of service: 06/29/20 Principal diagnosis: Ac hypoxemic resp failure; COVID-19; pneumonia; CHF; Pulm HTN; OHS; DM II Interval history: Pt remains on vent support. non-oliguric with UOP > 600ml/24h Objective - Exam Narrative Exam: Exam reviewed in chart d/t PPE preservation - Vital Signs Vital signs: Vital Signs - 12hr 06/28/20 06/28/20 06/28/20 22:46 23:00 23:16 Temperature Pulse Rate 83 83 Pulse Rate [ From Monitor] Respiratory 15 14 Rate Blood Pressure 142/57 142/57 149/64 O2 Sat by Pulse 98 98 98 Oximetry 06/28/20 06/28/20 06/28/20 23:18 23:20 23:30 Temperature Pulse Rate 84 85 84 Pulse Rate [ From Monitor] Respiratory 12 16 Rate Blood Pressure 149/64 142/57 149/64 O2 Sat by Pulse 97 98 98 Oximetry 06/28/20 06/28/20 06/29/20 23:38 23:46 00:00 Temperature 101.0 F H Pulse Rate 85 83 84 Pulse Rate [ 84 From Monitor] Respiratory 16 15 15 Rate Blood Pressure 157/65 157/65 149/64 O2 Sat by Pulse 98 98 98 Oximetry 06/29/20 06/29/20 06/29/20 00:16 00:30 00:46 Temperature Pulse Rate 82 83 87 Pulse Rate [ From Monitor] Respiratory 14 18 15 Rate Blood Pressure 162/70 162/70 157/66 O2 Sat by Pulse 96 98 97 Oximetry 06/29/20 06/29/20 06/29/20 01:00 01:16 01:30 Temperature Pulse Rate 83 84 81 Pulse Rate [ From Monitor] Respiratory 16 14 21 Rate Blood Pressure 157/66 164/63 164/63 O2 Sat by Pulse 97 97 98 Oximetry 06/29/20 06/29/20 06/29/20 01:46 02:00 02:16 Temperature Pulse Rate 84 86 78 Pulse Rate [ 79 From Monitor] Respiratory 15 20 20 Rate Blood Pressure 161/72 161/72 170/61 O2 Sat by Pulse 97 97 98 Oximetry 06/29/20 06/29/20 06/29/20 02:30 02:46 03:00 Temperature Pulse Rate 82 82 76 Pulse Rate [ From Monitor] Respiratory 20 16 17 Rate Blood Pressure 170/61 156/66 156/66 O2 Sat by Pulse 98 95 98 Oximetry 06/29/20 06/29/20 06/29/20 03:16 03:30 03:46 Temperature Pulse Rate 79 79 78 Pulse Rate [ From Monitor] Respiratory 20 24 20 Rate Blood Pressure 150/62 150/62 157/63 O2 Sat by Pulse 97 97 98 Oximetry 06/29/20 06/29/20 06/29/20 04:00 04:13 04:16 Temperature 100.3 F H Pulse Rate 79 75 75 Pulse Rate [ 88 From Monitor] Respiratory 20 21 Rate Blood Pressure 157/63 170/65 157/63 O2 Sat by Pulse 98 98 98 Oximetry 06/29/20 06/29/20 06/29/20 04:30 04:46 05:00 Temperature Pulse Rate 80 77 79 Pulse Rate [ From Monitor] Respiratory 15 19 20 Rate Blood Pressure 157/63 162/64 162/64 O2 Sat by Pulse 98 98 98 Oximetry 06/29/20 06/29/20 06/29/20 05:16 05:30 05:46 Temperature Pulse Rate 78 80 80 Pulse Rate [ From Monitor] Respiratory 17 14 15 Rate Blood Pressure 162/64 162/64 169/63 O2 Sat by Pulse 98 97 97 Oximetry 06/29/20 06/29/20 06/29/20 06:00 06:16 06:30 Temperature Pulse Rate 80 77 73 Pulse Rate [ From Monitor] Respiratory 22 24 13 Rate Blood Pressure 169/63 144/51 144/51 O2 Sat by Pulse 98 98 98 Oximetry 06/29/20 06/29/20 06/29/20 06:38 06:46 07:00 Temperature Pulse Rate 74 74 Pulse Rate [ From Monitor] Respiratory 11 L 17 Rate Blood Pressure 144/51 144/51 144/51 O2 Sat by Pulse 98 98 Oximetry 06/29/20 06/29/20 06/29/20 07:16 07:30 07:39 Temperature Pulse Rate 76 75 Pulse Rate [ From Monitor] Respiratory 17 16 20 Rate Blood Pressure 125/42 125/42 O2 Sat by Pulse 98 98 Oximetry 06/29/20 06/29/20 06/29/20 08:00 08:01 08:30 Temperature Pulse Rate 73 76 71 Pulse Rate [ From Monitor] Respiratory 12 19 Rate Blood Pressure 125/42 141/49 136/47 O2 Sat by Pulse 99 99 99 Oximetry 06/29/20 06/29/20 06/29/20 09:00 09:30 09:42 Temperature Pulse Rate 70 70 70 Pulse Rate [ From Monitor] Respiratory 17 19 Rate Blood Pressure 140/49 140/49 144/53 O2 Sat by Pulse 99 100 Oximetry 06/29/20 06/29/20 06/29/20 09:43 10:00 10:30 Temperature Pulse Rate 70 75 70 Pulse Rate [ From Monitor] Respiratory 19 17 Rate Blood Pressure 144/53 144/53 154/44 O2 Sat by Pulse 94 98 Oximetry - Lab 06/29/20 04:38 06/29/20 04:38 Most recent lab results ABG pH 7.438 pH Units (7.350-7.450) 06/29/20 03:54 ABG pCO2 40.7 mm Hg 06/29/20 03:54 ABG pO2 89.2 mm Hg (80.0-90.0) 06/29/20 03:54 ABG HCO3 26.9 mmol/L (20.0-26.0) H 06/29/20 03:54 ABG O2 Saturation 97.2 % (95.0-99.0) 06/29/20 03:54 Calcium 7.4 mg/dL (8.4-10.2) L 06/29/20 04:38 Urine Creatinine 82.2 mg/dL (0.1-20.0) H 06/06/20 04:00 Urine Sodium 20 mmol/L 06/06/20 04:00 Urine Total Protein 196 mg/dL (5-11.8) H 06/06/20 04:00 Medications & Allergies - Medications Allergies/Adverse Reactions: Allergies No Known Allergies Allergy (Verified 01/21/20 12:28) Home Medications: Home Medications Medication Instructions Recorded Confirmed Last Taken Type AtorvaSTATin [Lipitor] 20 mg PO QHS 05/12/20 05/29/20 Unknown History lisinopriL [Zestril TAB] 40 mg PO QDAY 05/12/20 05/29/20 Unknown History metFORMIN [Glucophage] 850 mg PO BID 05/12/20 05/29/20 Unknown History Acetaminophen [Acetaminophen TAB] 650 mg PO Q4H PRN tablet 05/13/20 05/29/20 Unknown Rx Dicyclomine [Bentyl] 20 mg PO BID #20 tablet 05/13/20 05/29/20 Unknown Rx Famotidine [Pepcid] 20 mg PO BID #30 tablet 05/13/20 05/29/20 Unknown Rx carvediloL [Coreg] 6.25 mg PO BID #60 05/13/20 05/29/20 Unknown Rx Active Medications: Generic Name Dose Route Start Last Admin Trade Name Abe PRN Reason Stop Dose Admin Acetaminophen 650 mg 06/09/20 10:57 06/29/20 06:39 Tylenol FEEDTUBE 650 mg Q6H PRN Administration Fever >101 Amlodipine Besylate 10 mg 06/02/20 11:00 06/29/20 09:42 Amlodipine PO 10 mg DAILY NELSON Administration Lipase/Protease/Amylase 1 each 05/29/20 13:39 06/24/20 22:51 Pancreaze 10,500 Unit FEEDTUBE 1 each PRN PRN Administration For Clogged Feeding Tube Carvedilol 12.5 mg 06/03/20 10:00 06/29/20 09:43 Coreg PO 12.5 mg BID NELSON Administration Clonidine HCl 0.2 mg 06/23/20 22:00 06/29/20 09:43 Catapres PO 0.2 mg Q12HR NELSON Administration Glycopyrrolate 2 mg 06/09/20 14:00 06/29/20 09:41 Glycopyrrolate PO 2 mg TID NELSON Administration Hydralazine HCl 50 mg 06/03/20 09:00 06/29/20 06:38 Apresoline PO 50 mg Q8HR NELSON Administration Hydrophilic Ointment 1 applic 05/28/20 13:49 Vaseline Lip Therapy TP Q2HR PRN Dry Lips Sodium Chloride 1,000 mls @ 75 mls/hr 06/23/20 17:30 06/26/20 21:27 Nacl 0.9% 1000 Ml IV 75 mls/hr DIRECT NELSON Administration Vasopressin 20 unit/ Sodium 101 mls @ 9.09 mls/hr 06/26/20 19:00 06/26/20 19: 30 Chloride IV 0 units/min TITR NELSON 0 mls/hr Titration Protocol 0.03 UNITS/MIN Norepinephrine 4 mg in 250 mls @ 7.5 mls/hr 06/26/20 19:00 06/26/20 20:06 Levophed Drip 4 Mg/Ns 250 Ml IV 0 mcg/min TITR NELSON 0 mls/hr Titration Protocol 2 MCG/MIN Phenylephrine HCl 100 mg/ 100 mls @ 3 mls/hr 06/26/20 18:15 Sodium Chloride IV TITR NELSON Protocol 50 MCG/MIN Cefepime HCl 2 gm in 100 mls @ 200 mls/hr 06/28/20 13:00 06/29/20 06:39 Cefepime/Ns 2 Gm/100 Ml IV 200 mls/hr Q8HR NELSON Administration Protocol Vancomycin HCl 2,000 mg/ 540 mls @ 250 mls/hr 06/28/20 13:00 06/29/20 09:44 Sodium Chloride IV 250 mls/hr Q24HR NELSON Administration Insulin Glargine 10 units 06/08/20 22:00 06/28/20 22:00 Lantus SUB-Q 10 units QHS NELSON Administration Insulin Human Lispro 0 unit 05/29/20 18:00 06/29/20 06:54 Humalog SUB-Q Not Given Q6H NELSON Protocol Labetalol HCl 20 mg 06/03/20 09:00 06/26/20 21:27 Labetalol IV 20 mg Q4H PRN Administration HYPERTENSION Lansoprazole 30 mg 06/05/20 22:00 06/29/20 09:42 Prevacid Solutab FEEDTUBE 30 mg BID NELSON Administration Levetiracetam 500 mg 06/16/20 11:00 06/29/20 09:42 Keppra PO 500 mg BID NELSON Administration Lidocaine HCl 15 ml 06/26/20 20:00 06/29/20 09:41 Magic Mouthwash PO 15 ml TID NELSON Administration Metoclopramide HCl 10 mg 06/10/20 20:00 06/29/20 06:17 Reglan IV Not Given Q6H NELSON Multi-Ingred Cream/Lotion/Oil/Oint 1 applic 05/28/20 13:49 Artificial Tears Ophth Oint OU Q4HR PRN Dry Eye(s) Ondansetron HCl 4 mg 06/02/20 09:00 06/09/20 16:48 Zofran IV 4 mg Q8H PRN Administration Nausea And Vomiting Scopolamine 1 each 06/05/20 14:00 06/29/20 09:44 Transderm-Scop TD 1 each Q3D NELSON Administration Senna 17.6 mg 06/03/20 10:00 06/29/20 09:44 Senokot FEEDTUBE 17.6 mg BID NELSON Administration Simple Syrup 15 ml 05/29/20 13:39 Simple Syrup FEEDTUBE PRN PRN Hypoglycemia Simple Syrup 30 ml 05/29/20 13:39 Simple Syrup FEEDTUBE PRN PRN Hypoglycemia Sodium Bicarbonate 325 mg 05/29/20 13:39 Sodium Bicarbonate FEEDTUBE PRN PRN For Clogged Feeding Tube Sodium Chloride 10 ml 05/28/20 22:00 06/29/20 09:44 Sodium Chloride Flush Syringe 10 Ml IV 10 ml BID NELSON Administration Sodium Chloride 10 ml 05/28/20 19:08 06/16/20 17:50 Sodium Chloride Flush Syringe 10 Ml IV 10 ml PRN PRN Administration LINE FLUSH
--- NOTE | 2020-06-29 12:13 | Progress Note ---
Assessment and Plan Cultures: Coronavirus PCR: Positive 05/28/2020 blood culture: no growth 05/28/2020 tracheal aspirate: Usual respiratory bobo 05/28/2020 urine culture: No growth 06/03/2020 urine culture: No growth 06/09/2020 tracheal aspirate Klebsiella pneumoniae 06/28/2020 sputum culture positive for gram-negative rods 06/28/2020 blood cultures no growth today A/P: 64-year-old female with hypertension, diastolic CHF, pulmonary hypertension, diabetes, obesity hypoventilation syndrome was admitted to the emergency room after she called EMS due to difficulty breathing. On the way to the hospital, patient developed cardiac arrest and was treated as per ACLS protocol: #New sepsis: After asystolic cardiac arrest on 06/26/2028. Now with fever, increased lactate and AVANI. ? Healthcare associated pneumonia #Bilateral pneumonia: Secondary to COVID-19. Completed 5 days of IV Remdesivir 06/02/2020. ? Healthcare associated pneumonia, repeat sputum growing gram- negative rods #Acute hypoxic respiratory failure: On mechanical ventilation. Minimal vent settings. #Status post PEA arrest, encephalopathy #HF: EF 45-50% #Mild LFT elevation: likely from COVID-19. #AVANI: Worsening #Severe constipation: Status post manual disimpaction Recs: -Continue cefepime 2 g IV every 8 hours for now -Continue vancomycin with PK consult -Obtain MRSA PCR, and stop vancomycin if negative -Follow-up with blood and sputum culture result Very poor prognosis MD [facility] C: [phone] O: [phone] F: [phone] Subjective Date of service: 06/29/20 Principal diagnosis: Ac hypoxemic resp failure; COVID-19; pneumonia; CHF; Pulm HTN; OHS; DM II Interval history: ID reconsulted today. Last time seen on 06/18/2020. Patient was on high flow O2 unfortunately on 06/26/2020 hemoglobin was found to be 6.9. Patient was transfused. Underwent on 06/26/2020 patient was found on an asystolic arrest status post CODE BLUE, patient was reintubated and transferred to the ICU. Unfortunately patient has continued to have fever since then. T-max 102.2. C reatinine went from 1.1-2.4. Lactate went up to 4.3. She is currently intubated in the ICU. Objective - Exam Narrative Exam: Physical Exam (reviewed in chart due to PPE conservation and minimize risk of transmission) Constitutional: limited due to PPE conservation strategy Head, Ears, Nose: limited due to PPE conservation strategy Eyes: limited due to PPE conservation strategy Neck: intubated limited due to PPE conservation strategy Oral: limited due to PPE conservation strategy Cardiovascular: limited due to PPE conservation strategy Respiratory: limited due to PPE conservation strategy GI: limited due to PPE conservation strategy Musculoskeletal: limited due to PPE conservation strategy Skin: limited due to PPE conservation strategy Hem/Lymphatic: limited due to PPE conservation strategy Psych: limited due to PPE conservation strategy Neurological: limited due to PPE conservation strategy - Constitutional Vitals: Vital Signs Temp Pulse Resp BP Pulse Ox 100.3 F H 68 12 154/44 99 06/29/20 04:00 06/29/20 11:00 06/29/20 11:00 06/29/20 11:00 06/29/20 11:00 Temperature -Last 24 Hours Temperature 100.3 F Temperature 101.0 F Temperature 100.6 F Temperature 100.3 F - Labs CBC & Chem 7: 06/29/20 04:38 06/29/20 04:38 Labs: Abnormal lab results 06/28/20 06/28/20 06/28/20 Range/Units 12:02 12:30 12:30 RBC 2.38 L (3.65-5.03) M/mm3 Hgb 7.3 L (10.1-14.3) gm/dl Hct 20.9 L (30.3-42.9) % MCHC 35 H (30-34) % RDW 16.7 H (13.2-15.2) % Lymph % (Auto) (13.4-35.0) % [place] % (Auto) (0.0-7.3) % Lymph # (1.2-5.4) K/mm3 [place] # (0.0-0.8) K/mm3 ABG HCO3 (20.0-26.0) mmol/L ABG Hemoglobin (12.0-16.0) gm/dl Chloride (98-107) mmol/L BUN 74 H (7-17) mg/dL Creatinine 1.5 H (0.6-1.2) mg/dL Glucose 143 H (65-100) mg/dL POC Glucose 169 H (70-105) Calcium 7.5 L (8.4-10.2) mg/dL 06/28/20 06/29/20 06/29/20 Range/Units 17:24 00:02 03:54 RBC (3.65-5.03) M/mm3 Hgb (10.1-14.3) gm/dl Hct (30.3-42.9) % MCHC (30-34) % RDW (13.2-15.2) % Lymph % (Auto) (13.4-35.0) % [place] % (Auto) (0.0-7.3) % Lymph # (1.2-5.4) K/mm3 [place] # (0.0-0.8) K/mm3 ABG HCO3 26.9 H (20.0-26.0) mmol/L ABG Hemoglobin 6.9 L (12.0-16.0) gm/dl Chloride (98-107) mmol/L BUN (7-17) mg/dL Creatinine (0.6-1.2) mg/dL Glucose (65-100) mg/dL POC Glucose 173 H 142 H (70-105) Calcium (8.4-10.2) mg/dL 06/29/20 06/29/20 06/29/20 Range/Units 04:38 04:38 05:38 RBC 2.55 L (3.65-5.03) M/mm3 Hgb 7.3 L (10.1-14.3) gm/dl Hct 22.4 L (30.3-42.9) % MCHC (30-34) % RDW 16.4 H (13.2-15.2) % Lymph % (Auto) 13.3 L (13.4-35.0) % [place] % (Auto) 12.5 H (0.0-7.3) % Lymph # 1.1 L (1.2-5.4) K/mm3 [place] # 1.0 H (0.0-0.8) K/mm3 ABG HCO3 (20.0-26.0) mmol/L ABG Hemoglobin (12.0-16.0) gm/dl Chloride 107.8 H (98-107) mmol/L BUN 72 H (7-17) mg/dL Creatinine 1.4 H (0.6-1.2) mg/dL Glucose 127 H (65-100) mg/dL POC Glucose 122 H (70-105) Calcium 7.4 L (8.4-10.2) mg/dL 06/29/20 Range/Units 12:25 RBC (3.65-5.03) M/mm3 Hgb (10.1-14.3) gm/dl Hct (30.3-42.9) % MCHC (30-34) % RDW (13.2-15.2) % Lymph % (Auto) (13.4-35.0) % [place] % (Auto) (0.0-7.3) % Lymph # (1.2-5.4) K/mm3 [place] # (0.0-0.8) K/mm3 ABG HCO3 (20.0-26.0) mmol/L ABG Hemoglobin (12.0-16.0) gm/dl Chloride (98-107) mmol/L BUN (7-17) mg/dL Creatinine (0.6-1.2) mg/dL Glucose (65-100) mg/dL POC Glucose 138 H (70-105) Calcium (8.4-10.2) mg/dL
--- NOTE | 2020-06-29 12:38 | Gastroenterology Progress Note ---
Assessment and Plan - Patient Problems (1) Coffee ground emesis Current Visit: Yes Status: Acute Plan to address problem: - Likely stress ulcers, but hemodynamics stable and no gross GI output. - Will continue PPI therapy. - EGD if gross bleeding. - Anticoagulation benefits likely outweigh risks if hct remains above 24. (2) Acute blood loss anemia Current Visit: Yes Status: Acute Subjective Date of service: 06/29/20 Principal diagnosis: Coffee Ground Emesis Interval history: The patient remains on the Vent. No melena or hematemesis noted. Tolerating tube feeds and is on BID prevacid. Objective - Constitutional Vitals: Temp Pulse Resp BP Pulse Ox 100.3 F H 69 14 133/55 99 06/29/20 04:00 06/29/20 12:00 06/29/20 12:00 06/29/20 12:00 06/29/20 12:00 General appearance: no acute distress - Neck Neck: supple, normal ROM - Respiratory Respiratory effort: normal Respiratory: bilateral: CTA (Vent) - Cardiovascular Rhythm: regular Heart Sounds: Present: S1 & S2 - Gastrointestinal General gastrointestinal: Present: soft, non-tender, non-distended - Labs CBC & Chem 7: 06/29/20 04:38 06/29/20 04:38 Labs: Laboratory Results - last 24 hr 06/28/20 06/28/20 06/28/20 12:02 12:30 12:30 WBC 8.2 RBC 2.38 L Hgb 7.3 L Hct 20.9 L MCV 88 MCH 31 MCHC 35 H RDW 16.7 H Plt Count 388 Lymph % (Auto) [place] % (Auto) Eos % (Auto) Baso % (Auto) Lymph # [place] # Eos # Baso # Seg Neutrophils % Seg Neutrophils # ABG pH ABG pCO2 ABG pO2 ABG HCO3 ABG O2 Saturation ABG O2 Content ABG Base Excess ABG Hemoglobin ABG Carboxyhemoglobin ABG Methemoglobin Oxyhemoglobin FiO2 Sodium 145 Potassium 3.9 Chloride 106.8 Carbon Dioxide 26 Anion Gap 16 BUN 74 H Creatinine 1.5 H Estimated GFR 35 BUN/Creatinine Ratio 49 Glucose 143 H POC Glucose 169 H Calcium 7.5 L 06/28/20 06/29/20 06/29/20 17:24 00:02 03:54 WBC RBC Hgb Hct MCV MCH MCHC RDW Plt Count Lymph % (Auto) [place] % (Auto) Eos % (Auto) Baso % (Auto) Lymph # [place] # Eos # Baso # Seg Neutrophils % Seg Neutrophils # ABG pH 7.438 ABG pCO2 40.7 ABG pO2 89.2 ABG HCO3 26.9 H ABG O2 Saturation 97.2 ABG O2 Content 9.4 ABG Base Excess 2.5 ABG Hemoglobin 6.9 L ABG Carboxyhemoglobin 1.6 ABG Methemoglobin 0.5 Oxyhemoglobin 95.2 FiO2 30 Sodium Potassium Chloride Carbon Dioxide Anion Gap BUN Creatinine Estimated GFR BUN/Creatinine Ratio Glucose POC Glucose 173 H 142 H Calcium 06/29/20 06/29/20 06/29/20 04:38 04:38 05:38 WBC 8.3 RBC 2.55 L Hgb 7.3 L Hct 22.4 L MCV 88 MCH 29 MCHC 33 RDW 16.4 H Plt Count 377 Lymph % (Auto) 13.3 L [place] % (Auto) 12.5 H Eos % (Auto) 4.2 Baso % (Auto) 0.7 Lymph # 1.1 L [place] # 1.0 H Eos # 0.4 Baso # 0.1 Seg Neutrophils % 69.3 Seg Neutrophils # 5.8 ABG pH ABG pCO2 ABG pO2 ABG HCO3 ABG O2 Saturation ABG O2 Content ABG Base Excess ABG Hemoglobin ABG Carboxyhemoglobin ABG Methemoglobin Oxyhemoglobin FiO2 Sodium 145 Potassium 3.9 Chloride 107.8 H Carbon Dioxide 26 Anion Gap 15 BUN 72 H Creatinine 1.4 H Estimated GFR 38 BUN/Creatinine Ratio 51 Glucose 127 H POC Glucose 122 H Calcium 7.4 L 06/29/20 12:25 WBC RBC Hgb Hct MCV MCH MCHC RDW Plt Count Lymph % (Auto) [place] % (Auto) Eos % (Auto) Baso % (Auto) Lymph # [place] # Eos # Baso # Seg Neutrophils % Seg Neutrophils # ABG pH ABG pCO2 ABG pO2 ABG HCO3 ABG O2 Saturation ABG O2 Content ABG Base Excess ABG Hemoglobin ABG Carboxyhemoglobin ABG Methemoglobin Oxyhemoglobin FiO2 Sodium Potassium Chloride Carbon Dioxide Anion Gap BUN Creatinine Estimated GFR BUN/Creatinine Ratio Glucose POC Glucose 138 H Calcium
--- NOTE | 2020-06-29 12:49 | Progress Note ---
Assessment and Plan Cardiopulmoanry arrest 06/26/2020 with ROSC Acute hypoxemic respiratory failure , extubated now re-intubated Anemia s/p PRBC Severe COVID infection Multifocal pneumonia Morbid obesity Acute toxic metabolic encephalopathy AVANI secondary to COVID/vasomotor nephropathy Bilateral pulmonary edema. Bilateral pleural effusions. History of congestive heart failure. History of pulmonary hypertension. History of hypertension. Diabetes. Obesity hypoventilation syndrome. Oropharyngeal dysphagia. Follow blood cultures, urine cultures and tracheal aspirate for cultures results Continue Cefepime, Vancomycin Fluid conservative measures as tolerated by renal function and hemodynamcis VTE prophylaxis - heparin infusion on hold secondary to rectal bleeding Supportive transfusions as indicated CXR, ABG in am Initiate SBTs today - VAP bundle addressed -Aspiration precautions, HOB >40 -lung protective strategies-ARDS. net - continue bronchodilators with pulmonary hygiene per RT - wean per pulmonary driven protocols otherwise - continue to avoid benzodiazepines, reduce the possibility of delirium - prn analgesia per CPOT score - Continue to wean supplemental oxygen for target O2 sats > 92% -Hold all sedation for now to allow for assessment of neurologic status post cardiopulmonary arrest - conservative fluid management measures as tolerated by hemodynamics and renal function - Bronchodilators with pulmonary hygiene per RT - Accuchecks with glycemic control per SSI (While critically ill target blood glucose of 140-180 mg/dL; avoid hypoglycemia) - Maintenance of sleep-wake cycle, avoid delirium - Avoid nephrotoxins, closely monitor renal function, dose all medications for renal function - Aspiration precautions, HOB >40 - Stress ulcer prophylaxis -Famotidine - Mobility protocol, off loading and skin assessment for pressure ulcer prevention - Monitor hemodynamics closely - Supportive transfusions as indicated to keep HgB >7g/dL COVID SPECIFIC INTERVENTIONS -Airborne, contact isolation for COVID per facility protocols - s/p Remdesivir -IV steroids-Dexamethasone -Trend d-dimer,and other inflammatory markers per facility protocol -Convalescent plasma therapy per facility protocol -Continue all supportive care Discussed with the ICU team-RT,RN, Life threatening condition- Cardiopulmaonry arrest with ROSC, SepsisCOVID 19 ARDS acute hypoxemic respiratory failure on MVS Mortality/Morbidity- High Complexity of medical decision making- High CONDITION: CRITICAL PROGNOSIS: GUARDED CODE STATUS: FULL CODE The high probability of a clinically significant, sudden or life-threatening deterioration of the [respiratory & neurology, renal ] system(s) required my full and direct attention, intervention and personal management. The aggregate critical care time was [34] minutes without overlap. Time includes spent on; [x] Data Review and interpretation [x] Patient assessment and monitoring of vital signs [x] Documentation [x] Medication orders and management Subjective Date of service: 06/29/20 Principal diagnosis: Coffee Ground Emesis Interval history: Patient is seen today for: Ac hypoxemic resp failure; Coronavirus-19 infection; pneumonia; Pulmonary edema; Bilateral pleural effusions; CHF; Morbid obesity; pulmonary hypertension; OHS; DM II Seen and examined at bedside; 24hour events reviewed; nursing and respiratory care staff consulted; Vitals, labs,medications, chart reviewed. On going intermittent fevers overnight. Remains orally intubated to MVS, but on low vent settings. Has a cough and gag reflex, grimaces to pain. Objective Vital Signs - 12hr 06/29/20 06/29/20 06/29/20 01:00 01:16 01:30 Temperature Pulse Rate 83 84 81 Pulse Rate [ From Monitor] Respiratory 16 14 21 Rate Respiratory Rate [Left Upper Hand] Blood Pressure 157/66 164/63 164/63 O2 Sat by Pulse 97 97 98 Oximetry 06/29/20 06/29/20 06/29/20 01:46 02:00 02:16 Temperature Pulse Rate 84 86 78 Pulse Rate [ 79 From Monitor] Respiratory 15 20 20 Rate Respiratory Rate [Left Upper Hand] Blood Pressure 161/72 161/72 170/61 O2 Sat by Pulse 97 97 98 Oximetry 06/29/20 06/29/20 06/29/20 02:30 02:46 03:00 Temperature Pulse Rate 82 82 76 Pulse Rate [ From Monitor] Respiratory 20 16 17 Rate Respiratory Rate [Left Upper Hand] Blood Pressure 170/61 156/66 156/66 O2 Sat by Pulse 98 95 98 Oximetry 06/29/20 06/29/20 06/29/20 03:16 03:30 03:46 Temperature Pulse Rate 79 79 78 Pulse Rate [ From Monitor] Respiratory 20 24 20 Rate Respiratory Rate [Left Upper Hand] Blood Pressure 150/62 150/62 157/63 O2 Sat by Pulse 97 97 98 Oximetry 06/29/20 06/29/20 06/29/20 04:00 04:13 04:16 Temperature 100.3 F H Pulse Rate 79 75 75 Pulse Rate [ 88 From Monitor] Respiratory 20 21 Rate Respiratory Rate [Left Upper Hand] Blood Pressure 157/63 170/65 157/63 O2 Sat by Pulse 98 98 98 Oximetry 06/29/20 06/29/20 06/29/20 04:30 04:46 05:00 Temperature Pulse Rate 80 77 79 Pulse Rate [ From Monitor] Respiratory 15 19 20 Rate Respiratory Rate [Left Upper Hand] Blood Pressure 157/63 162/64 162/64 O2 Sat by Pulse 98 98 98 Oximetry 06/29/20 06/29/20 06/29/20 05:16 05:30 05:46 Temperature Pulse Rate 78 80 80 Pulse Rate [ From Monitor] Respiratory 17 14 15 Rate Respiratory Rate [Left Upper Hand] Blood Pressure 162/64 162/64 169/63 O2 Sat by Pulse 98 97 97 Oximetry 06/29/20 06/29/20 06/29/20 06:00 06:16 06:30 Temperature Pulse Rate 80 77 73 Pulse Rate [ From Monitor] Respiratory 22 24 13 Rate Respiratory Rate [Left Upper Hand] Blood Pressure 169/63 144/51 144/51 O2 Sat by Pulse 98 98 98 Oximetry 06/29/20 06/29/20 06/29/20 06:38 06:46 07:00 Temperature Pulse Rate 74 74 Pulse Rate [ From Monitor] Respiratory 11 L 17 Rate Respiratory Rate [Left Upper Hand] Blood Pressure 144/51 144/51 144/51 O2 Sat by Pulse 98 98 Oximetry 06/29/20 06/29/20 06/29/20 07:16 07:30 07:39 Temperature Pulse Rate 76 75 Pulse Rate [ From Monitor] Respiratory 17 16 20 Rate Respiratory Rate [Left Upper Hand] Blood Pressure 125/42 125/42 O2 Sat by Pulse 98 98 Oximetry 06/29/20 06/29/20 06/29/20 08:00 08:01 08:30 Temperature Pulse Rate 80 76 71 Pulse Rate [ 80 From Monitor] Respiratory 12 19 Rate Respiratory Rate [Left Upper Hand] Blood Pressure 125/42 141/49 136/47 O2 Sat by Pulse 99 99 99 Oximetry 06/29/20 06/29/20 06/29/20 09:00 09:30 09:42 Temperature Pulse Rate 70 70 70 Pulse Rate [ From Monitor] Respiratory 17 19 Rate Respiratory Rate [Left Upper Hand] Blood Pressure 140/49 140/49 144/53 O2 Sat by Pulse 99 100 Oximetry 06/29/20 06/29/2006/29/20 09:43 10:00 10:30 Temperature Pulse Rate 70 75 70 Pulse Rate [ From Monitor] Respiratory 19 17 Rate Respiratory 20 Rate [Left Upper Hand] Blood Pressure 144/53 144/53 154/44 O2 Sat by Pulse 94 98 Oximetry 06/29/20 06/29/20 11:00 12:00 Temperature Pulse Rate 68 69 Pulse Rate [ 72 From Monitor] Respiratory 12 14 Rate Respiratory Rate [Left Upper Hand] Blood Pressure 154/44 133/55 O2 Sat by Pulse 99 99 Oximetry Constitutional: no acute distress, other (elderly looking obese female orally intuabted, ETT at 7.5) Eyes: non-icteric ENT: oropharynx dry Neck: supple, no lymphadenopathy, no JVD, other (large neck circumference) Effort: normal Ascultation: Bilateral: clear, diminished breath sounds, rales, rhonchi (scant) Percussion: Bilateral: not dull Cardiovascular: regular rate and rhythm, other (S1,S2) Gastrointestinal: normoactive bowel sounds, soft, non-tender, non-distended Integumentary: normal Extremities: no cyanosis, no edema, pink and warm, pulses normal, no ischemia or petechiae Neurologic: unable to assess Psychiatric: other (unable to assess re: AMS) CBC and BMP: 06/29/20 04:38 06/29/20 04:38 ABG, PT/INR, D-dimer: ABG ABG pH 7.438 pH Units (7.350-7.450) 06/29/20 03:54 POC ABG pCO2 54.7 mmHg (32.0-48.0) H 06/23/20 12:34 ABG pCO2 40.7 mm Hg 06/29/20 03:54 POC ABG pO2 68.8 mmHg (83-108) L 06/23/20 12:34 ABG pO2 89.2 mm Hg (80.0-90.0) 06/29/20 03:54 POC ABG HCO3 30.2 06/23/20 12:34 ABG O2 Saturation 97.2 % (95.0-99.0) 06/29/20 03:54 PT/INR, D-dimer PT 14.2 Sec. (12.2-14.9) 05/29/20 15:10 INR 1.08 (0.87-1.13) 05/29/20 15:10 D-Dimer 414.52 ng/mlDDU (0-234) H 06/04/20 04:19 Abnormal lab findings: Abnormal Labs 05/28/20 05/28/20 05/28/20 13:29 13:47 13:47 WBC RBC Hgb Hct MCHC RDW 15.3 H Lymph % (Auto) [place] % (Auto) Eos % (Auto) Lymph # [place] # Seg Neutrophils % Seg Neuts % (Manual) Lymphocytes % (Manual) Seg Neutrophils # Seg Neutrophils # Man Lymphocytes # (Manual) Monocytes # (Manual) D-Dimer Heparin Anti-Xa Level ABG pH POC ABG pCO2 POC ABG pO2 ABG pO2 ABG HCO3 ABG O2 Saturation ABG Base Excess ABG Hemoglobin ABG Oxyhemoglobin VBG pH Oxyhemoglobin Sodium Potassium 6.6 H* Chloride 109.2 H Carbon Dioxide 17 L BUN 29 H Creatinine 1.3 H Glucose 265 H POC Glucose 248 H Lactic Acid Calcium 8.1 L AST 63 H Alkaline Phosphatase Lactate Dehydrogenase Total Creatine Kinase 301 H CK-MB (CK-2) 4.3 H C-Reactive Protein Total Protein 5.4 L Albumin 2.6 L Urine WBC (Auto) Urine Creatinine Urine Total Protein Coronavirus (PCR) Crossmatch 05/28/20 05/28/20 05/28/20 13:47 13:47 14:46 WBC RBC Hgb Hct MCHC RDW Lymph % (Auto) [place] % (Auto) Eos % (Auto) Lymph # [place] # Seg Neutrophils % Seg Neuts % (Manual) Lymphocytes % (Manual) Seg Neutrophils # Seg Neutrophils # Man Lymphocytes # (Manual) Monocytes # (Manual) D-Dimer Heparin Anti-Xa Level ABG pH POC ABG pCO2 POC ABG pO2 ABG pO2 ABG HCO3 ABG O2 Saturation ABG Base Excess ABG Hemoglobin ABG Oxyhemoglobin VBG pH 7.152 L* Oxyhemoglobin Sodium Potassium 7.2 H* Chloride Carbon Dioxide BUN Creatinine Glucose POC Glucose Lactic Acid 3.40 H* Calcium AST Alkaline Phosphatase Lactate Dehydrogenase Total Creatine Kinase CK-MB (CK-2) C-Reactive Protein Total Protein Albumin Urine WBC (Auto) Urine Creatinine Urine Total Protein Coronavirus (PCR) Crossmatch 05/28/20 05/28/20 05/28/20 15:33 15:33 15:51 WBC RBC Hgb Hct MCHC RDW Lymph % (Auto) [place] % (Auto) Eos % (Auto) Lymph # [place] # Seg Neutrophils % Seg Neuts % (Manual) Lymphocytes % (Manual) Seg Neutrophils # Seg Neutrophils # Man Lymphocytes # (Manual) Monocytes # (Manual) D-Dimer 8780.43 H Heparin Anti-Xa Level ABG pH 7.284 L POC ABG pCO2 POC ABG pO2 ABG pO2 273.0 H ABG HCO3 ABG O2 Saturation 99.4 H ABG Base Excess -6.1 L ABG Hemoglobin 17.2 H ABG Oxyhemoglobin VBG pH Oxyhemoglobin Sodium Potassium Chloride Carbon Dioxide BUN Creatinine Glucose 152 H POC Glucose Lactic Acid Calcium AST Alkaline Phosphatase Lactate Dehydrogenase 365 H Total Creatine Kinase CK-MB (CK-2) C-Reactive Protein Total Protein Albumin Urine WBC (Auto) Urine Creatinine Urine Total Protein Coronavirus (PCR) Crossmatch 05/28/20 05/28/20 05/28/20 16:30 20:41 23:20 WBC RBC Hgb Hct MCHC RDW Lymph % (Auto) [place] % (Auto) Eos % (Auto) Lymph # [place] # Seg Neutrophils % Seg Neuts % (Manual) Lymphocytes % (Manual) Seg Neutrophils # Seg Neutrophils # Man Lymphocytes # (Manual) Monocytes # (Manual) D-Dimer Heparin Anti-Xa Level ABG pH POC ABG pCO2 POC ABG pO2 ABG pO2 ABG HCO3 ABG O2 Saturation ABG Base Excess ABG Hemoglobin ABG Oxyhemoglobin VBG pH Oxyhemoglobin Sodium Potassium Chloride Carbon Dioxide BUN Creatinine Glucose POC Glucose 225 H 224 H Lactic Acid Calcium AST Alkaline Phosphatase Lactate Dehydrogenase Total Creatine Kinase CK-MB (CK-2) C-Reactive Protein Total Protein Albumin Urine WBC (Auto) 17.0 H Urine Creatinine Urine Total Protein Coronavirus (PCR) Crossmatch 05/28/20 05/29/20 05/29/20 Unknown 04:35 04:43 WBC RBC 3.48 L Hgb 9.8 L Hct 29.4 L MCHC RDW 16.0 H Lymph % (Auto) 7.4 L [place] % (Auto) Eos % (Auto) Lymph # 0.7 L [place] # Seg Neutrophils % 89.1 H Seg Neuts % (Manual) Lymphocytes % (Manual) Seg Neutrophils # 8.1 H Seg Neutrophils # Man Lymphocytes # (Manual) Monocytes # (Manual) D-Dimer Heparin Anti-Xa Level ABG pH POC ABG pCO2 POC ABG pO2 ABG pO2 ABG HCO3 19.3 L ABG O2 Saturation ABG Base Excess -4.5 L ABG Hemoglobin 9.7 L ABG Oxyhemoglobin VBG pH Oxyhemoglobin Sodium Potassium Chloride Carbon Dioxide BUN Creatinine Glucose POC Glucose Lactic Acid Calcium AST Alkaline Phosphatase Lactate Dehydrogenase Total Creatine Kinase CK-MB (CK-2) C-Reactive Protein Total Protein Albumin Urine WBC (Auto) Urine Creatinine Urine Total Protein Coronavirus (PCR) Positive A Crossmatch 05/29/20 05/29/20 05/29/20 04:43 15:10 17:17 WBC RBC Hgb 9.3 L Hct 28.7 L MCHC RDW Lymph % (Auto) [place] % (Auto) Eos % (Auto) Lymph # [place] # Seg Neutrophils % Seg Neuts % (Manual) Lymphocytes % (Manual) Seg Neutrophils # Seg Neutrophils # Man Lymphocytes # (Manual) Monocytes # (Manual) D-Dimer Heparin Anti-Xa Level ABG pH POC ABG pCO2 POC ABG pO2 ABG pO2 ABG HCO3 ABG O2 Saturation ABG Base Excess ABG Hemoglobin ABG Oxyhemoglobin VBG pH Oxyhemoglobin Sodium Potassium Chloride 110.2 H Carbon Dioxide 18 L BUN 32 H Creatinine 1.4 H Glucose 180 H POC Glucose 147 H Lactic Acid Calcium AST Alkaline Phosphatase Lactate Dehydrogenase Total Creatine Kinase CK-MB (CK-2) C-Reactive Protein Total Protein Albumin Urine WBC (Auto) Urine Creatinine Urine Total Protein Coronavirus (PCR) Crossmatch 05/30/20 05/30/20 05/30/20 00:08 00:12 04:15 WBC RBC Hgb Hct MCHC RDW Lymph % (Auto) [place] % (Auto) Eos % (Auto) Lymph # [place] # Seg Neutrophils % Seg Neuts % (Manual) Lymphocytes % (Manual) Seg Neutrophils # Seg Neutrophils # Man Lymphocytes # (Manual) Monocytes # (Manual) D-Dimer Heparin Anti-Xa Level 0.71 H ABG pH 7.460 H POC ABG pCO2 POC ABG pO2 ABG pO2 106.0 H ABG HCO3 18.9 L ABG O2 Saturation ABG Base Excess -4.4 L ABG Hemoglobin 6.8 L ABG Oxyhemoglobin VBG pH Oxyhemoglobin Sodium Potassium Chloride Carbon Dioxide BUN Creatinine Glucose POC Glucose 195 H Lactic Acid Calcium AST Alkaline Phosphatase Lactate Dehydrogenase Total Creatine Kinase CK-MB (CK-2) C-Reactive Protein Total Protein Albumin Urine WBC (Auto) Urine Creatinine Urine Total Protein Coronavirus (PCR) Crossmatch 05/30/20 05/30/20 05/30/20 06:07 08:37 12:33 WBC RBC Hgb Hct MCHC RDW Lymph % (Auto) [place] % (Auto) Eos % (Auto) Lymph # [place] # Seg Neutrophils % Seg Neuts % (Manual) Lymphocytes % (Manual) Seg Neutrophils # Seg Neutrophils # Man Lymphocytes # (Manual) Monocytes # (Manual) D-Dimer Heparin Anti-Xa Level 0.85 H ABG pH POC ABG pCO2 POC ABG pO2 ABG pO2 ABG HCO3 ABG O2 Saturation ABG Base Excess ABG Hemoglobin ABG Oxyhemoglobin VBG pH Oxyhemoglobin Sodium Potassium Chloride Carbon Dioxide BUN Creatinine Glucose POC Glucose 182 H 187 H Lactic Acid Calcium AST Alkaline Phosphatase Lactate Dehydrogenase Total Creatine Kinase CK-MB (CK-2) C-Reactive Protein Total Protein Albumin Urine WBC (Auto) Urine Creatinine Urine Total Protein Coronavirus (PCR) Crossmatch 05/30/20 05/30/20 05/30/20 15:58 17:57 23:36 WBC RBC Hgb Hct MCHC RDW Lymph % (Auto) [place] % (Auto) Eos % (Auto) Lymph # [place] # Seg Neutrophils % Seg Neuts % (Manual) Lymphocytes % (Manual) Seg Neutrophils # Seg Neutrophils # Man Lymphocytes # (Manual) Monocytes # (Manual) D-Dimer Heparin Anti-Xa Level 1.03 H ABG pH POC ABG pCO2 POC ABG pO2 ABG pO2 ABG HCO3 ABG O2 Saturation ABG Base Excess ABG Hemoglobin ABG Oxyhemoglobin VBG pH Oxyhemoglobin Sodium Potassium Chloride Carbon Dioxide BUN Creatinine Glucose POC Glucose 208 H 185 H Lactic Acid Calcium AST Alkaline Phosphatase Lactate Dehydrogenase Total Creatine Kinase CK-MB (CK-2) C-Reactive Protein Total Protein Albumin Urine WBC (Auto) Urine Creatinine Urine Total Protein Coronavirus (PCR) Crossmatch 05/31/20 05/31/20 05/31/20 02:16 03:55 06:16 WBC RBC Hgb 9.2 L Hct 27.5 L MCHC RDW Lymph % (Auto) [place] % (Auto) Eos % (Auto) Lymph # [place] # Seg Neutrophils % Seg Neuts % (Manual) Lymphocytes % (Manual) Seg Neutrophils # Seg Neutrophils # Man Lymphocytes # (Manual) Monocytes # (Manual) D-Dimer Heparin Anti-Xa Level ABG pH POC ABG pCO2 POC ABG pO2 ABG pO2 94.7 H ABG HCO3 18.6 L ABG O2 Saturation ABG Base Excess -5.5 L ABG Hemoglobin 7.9 L ABG Oxyhemoglobin VBG pH Oxyhemoglobin Sodium Potassium Chloride Carbon Dioxide BUN Creatinine Glucose POC Glucose 160 H Lactic Acid Calcium AST Alkaline Phosphatase Lactate Dehydrogenase Total Creatine Kinase CK-MB (CK-2) C-Reactive Protein Total Protein Albumin Urine WBC (Auto) Urine Creatinine Urine Total Protein Coronavirus (PCR) Crossmatch 05/31/20 05/31/20 05/31/20 12:20 13:03 18:13 WBC RBC Hgb Hct MCHC RDW Lymph % (Auto) [place] % (Auto) Eos % (Auto) Lymph # [place] # Seg Neutrophils % Seg Neuts % (Manual) Lymphocytes % (Manual) Seg Neutrophils # Seg Neutrophils # Man Lymphocytes # (Manual) Monocytes # (Manual) D-Dimer Heparin Anti-Xa Level ABG pH POC ABG pCO2 POC ABG pO2 ABG pO2 ABG HCO3 ABG O2 Saturation ABG Base Excess ABG Hemoglobin ABG Oxyhemoglobin VBG pH Oxyhemoglobin Sodium Potassium Chloride Carbon Dioxide 18 L BUN 48 H Creatinine 1.6 H Glucose 115 H POC Glucose 128 H 159 H Lactic Acid Calcium 8.3 L AST Alkaline Phosphatase Lactate Dehydrogenase Total Creatine Kinase CK-MB (CK-2) C-Reactive Protein Total Protein 5.4 L Albumin 2.4 L Urine WBC (Auto) Urine Creatinine Urine Total Protein Coronavirus (PCR) Crossmatch 05/31/20 06/01/20 06/01/20 23:51 04:00 05:48 WBC RBC Hgb Hct MCHC RDW Lymph % (Auto) [place] % (Auto) Eos % (Auto) Lymph # [place] # Seg Neutrophils % Seg Neuts % (Manual) Lymphocytes % (Manual) Seg Neutrophils # Seg Neutrophils # Man Lymphocytes # (Manual) Monocytes # (Manual) D-Dimer Heparin Anti-Xa Level ABG pH POC ABG pCO2 POC ABG pO2 ABG pO2 109.8 H ABG HCO3 18.8 L ABG O2 Saturation ABG Base Excess -5.9 L ABG Hemoglobin 7.8 L ABG Oxyhemoglobin VBG pH Oxyhemoglobin Sodium Potassium Chloride Carbon Dioxide BUN Creatinine Glucose POC Glucose 171 H 133 H Lactic Acid Calcium AST Alkaline Phosphatase Lactate Dehydrogenase Total Creatine Kinase CK-MB (CK-2) C-Reactive Protein Total Protein Albumin Urine WBC (Auto) Urine Creatinine Urine Total Protein Coronavirus (PCR) Crossmatch 06/01/20 06/01/20 06/02/20 12:28 17:29 00:08 WBC RBC Hgb Hct MCHC RDW Lymph % (Auto) [place] % (Auto) Eos % (Auto) Lymph # [place] # Seg Neutrophils % Seg Neuts % (Manual) Lymphocytes % (Manual) Seg Neutrophils # Seg Neutrophils # Man Lymphocytes # (Manual) Monocytes # (Manual) D-Dimer Heparin Anti-Xa Level ABG pH POC ABG pCO2 POC ABG pO2 ABG pO2 ABG HCO3 ABG O2 Saturation ABG Base Excess ABG Hemoglobin ABG Oxyhemoglobin VBG pH Oxyhemoglobin Sodium Potassium Chloride Carbon Dioxide BUN Creatinine Glucose POC Glucose 199 H 209 H 162 H Lactic Acid Calcium AST Alkaline Phosphatase Lactate Dehydrogenase Total Creatine Kinase CK-MB (CK-2) C-Reactive Protein Total Protein Albumin Urine WBC (Auto) Urine Creatinine Urine Total Protein Coronavirus (PCR) Crossmatch 06/02/20 06/02/20 06/02/20 04:20 04:20 04:44 WBC RBC Hgb 10.0 L Hct MCHC RDW Lymph % (Auto) [place] % (Auto) Eos % (Auto) Lymph # [place] # Seg Neutrophils % Seg Neuts % (Manual) Lymphocytes % (Manual) Seg Neutrophils # Seg Neutrophils # Man Lymphocytes # (Manual) Monocytes # (Manual) D-Dimer Heparin Anti-Xa Level 0.10 L ABG pH POC ABG pCO2 POC ABG pO2 ABG pO2 150.6 H ABG HCO3 ABG O2 Saturation ABG Base Excess -4.1 L ABG Hemoglobin 11.8 L ABG Oxyhemoglobin VBG pH Oxyhemoglobin Sodium Potassium Chloride Carbon Dioxide BUN Creatinine Glucose POC Glucose Lactic Acid Calcium AST Alkaline Phosphatase Lactate Dehydrogenase Total Creatine Kinase CK-MB (CK-2) C-Reactive Protein Total Protein Albumin Urine WBC (Auto) Urine Creatinine Urine Total Protein Coronavirus (PCR) Crossmatch 06/02/20 06/02/20 06/02/20 05:53 12:04 13:49 WBC RBC Hgb Hct MCHC RDW Lymph % (Auto) [place] % (Auto) Eos % (Auto) Lymph # [place] # Seg Neutrophils % Seg Neuts % (Manual) Lymphocytes % (Manual) Seg Neutrophils # Seg Neutrophils # Man Lymphocytes # (Manual) Monocytes # (Manual) D-Dimer Heparin Anti-Xa Level 0.28 L ABG pH POC ABG pCO2 POC ABG pO2 ABG pO2 ABG HCO3 ABG O2 Saturation ABG Base Excess ABG Hemoglobin ABG Oxyhemoglobin VBG pH Oxyhemoglobin Sodium Potassium Chloride Carbon Dioxide BUN Creatinine Glucose POC Glucose 149 H 220 H Lactic Acid Calcium AST Alkaline Phosphatase Lactate Dehydrogenase Total Creatine Kinase CK-MB (CK-2) C-Reactive Protein Total Protein Albumin Urine WBC (Auto) Urine Creatinine Urine Total Protein Coronavirus (PCR) Crossmatch 06/02/20 06/02/20 06/03/20 13:49 18:31 00:42 WBC RBC Hgb Hct MCHC RDW Lymph % (Auto) [place] % (Auto) Eos % (Auto) Lymph # [place] # Seg Neutrophils % Seg Neuts % (Manual) Lymphocytes % (Manual) Seg Neutrophils # Seg Neutrophils # Man Lymphocytes # (Manual) Monocytes # (Manual) D-Dimer 769.68 H Heparin Anti-Xa Level ABG pH POC ABG pCO2 POC ABG pO2 ABG pO2 ABG HCO3 ABG O2 Saturation ABG Base Excess ABG Hemoglobin ABG Oxyhemoglobin VBG pH Oxyhemoglobin Sodium Potassium Chloride Carbon Dioxide BUN Creatinine Glucose POC Glucose 225 H 212 H Lactic Acid Calcium AST Alkaline Phosphatase Lactate Dehydrogenase Total Creatine Kinase CK-MB (CK-2) C-Reactive Protein Total Protein Albumin Urine WBC (Auto) Urine Creatinine Urine Total Protein Coronavirus (PCR) Crossmatch 06/03/20 06/03/20 06/03/20 05:16 05:16 05:25 WBC 11.4 H RBC Hgb Hct MCHC RDW 16.4 H Lymph % (Auto) [place] % (Auto) Eos % (Auto) Lymph # [place] # Seg Neutrophils % Seg Neuts % (Manual) Lymphocytes % (Manual) Seg Neutrophils # Seg Neutrophils # Man Lymphocytes # (Manual) Monocytes # (Manual) D-Dimer Heparin Anti-Xa Level ABG pH POC ABG pCO2 POC ABG pO2 ABG pO2 160.9 H ABG HCO3 19.4 L ABG O2 Saturation ABG Base Excess -4.9 L ABG Hemoglobin 7.0 L ABG Oxyhemoglobin VBG pH Oxyhemoglobin Sodium Potassium Chloride Carbon Dioxide 18 L BUN 65 H Creatinine 2.0 H Glucose 175 H POC Glucose Lactic Acid Calcium 8.0 L AST Alkaline Phosphatase Lactate Dehydrogenase Total Creatine Kinase CK-MB (CK-2) C-Reactive Protein Total Protein 5.5 L Albumin 2.2 L Urine WBC (Auto) Urine Creatinine Urine Total Protein Coronavirus (PCR) Crossmatch 06/03/20 06/03/20 06/03/20 06:07 11:58 18:24 WBC RBC Hgb Hct MCHC RDW Lymph % (Auto) [place] % (Auto) Eos % (Auto) Lymph # [place] # Seg Neutrophils % Seg Neuts % (Manual) Lymphocytes % (Manual) Seg Neutrophils # Seg Neutrophils # Man Lymphocytes # (Manual) Monocytes # (Manual) D-Dimer Heparin Anti-Xa Level ABG pH POC ABG pCO2 POC ABG pO2 ABG pO2 ABG HCO3 ABG O2 Saturation ABG Base Excess ABG Hemoglobin ABG Oxyhemoglobin VBG pH Oxyhemoglobin Sodium Potassium Chloride Carbon Dioxide BUN Creatinine Glucose POC Glucose 177 H 163 H 211 H Lactic Acid Calcium AST Alkaline Phosphatase Lactate Dehydrogenase Total Creatine Kinase CK-MB (CK-2) C-Reactive Protein Total Protein Albumin Urine WBC (Auto) Urine Creatinine Urine Total Protein Coronavirus (PCR) Crossmatch 06/03/20 06/03/20 06/04/20 21:50 Unknown 00:26 WBC RBC Hgb Hct MCHC RDW Lymph % (Auto) [place] % (Auto) Eos % (Auto) Lymph # [place] # Seg Neutrophils % Seg Neuts % (Manual) Lymphocytes % (Manual) Seg Neutrophils # Seg Neutrophils # Man Lymphocytes # (Manual) Monocytes # (Manual) D-Dimer Heparin Anti-Xa Level ABG pH POC ABG pCO2 POC ABG pO2 ABG pO2 ABG HCO3 ABG O2 Saturation ABG Base Excess ABG Hemoglobin ABG Oxyhemoglobin VBG pH Oxyhemoglobin Sodium 135 L Potassium Chloride Carbon Dioxide 18 L BUN Creatinine Glucose POC Glucose 241 H Lactic Acid Calcium AST Alkaline Phosphatase Lactate Dehydrogenase Total Creatine Kinase CK-MB (CK-2) C-Reactive Protein Total Protein Albumin Urine WBC (Auto) 11.0 H Urine Creatinine Urine Total Protein Coronavirus (PCR) Crossmatch 06/04/20 06/04/20 06/04/20 03:35 04:19 04:19 WBC RBC 3.15 L Hgb 8.9 L Hct 26.8 L D MCHC RDW 15.9 H Lymph % (Auto) 6.0 L [place] % (Auto) Eos % (Auto) Lymph # 0.6 L [place] # Seg Neutrophils % 86.6 H Seg Neuts % (Manual) Lymphocytes % (Manual) Seg Neutrophils # 9.1 H Seg Neutrophils # Man Lymphocytes # (Manual) Monocytes # (Manual) D-Dimer Heparin Anti-Xa Level ABG pH 7.331 L POC ABG pCO2 POC ABG pO2 ABG pO2 ABG HCO3 ABG O2 Saturation ABG Base Excess -4.7 L ABG Hemoglobin 11.0 L ABG Oxyhemoglobin VBG pH Oxyhemoglobin 93.9 L Sodium 136 L Potassium Chloride Carbon Dioxide 20 L BUN 73 H Creatinine 2.0 H Glucose 192 H POC Glucose Lactic Acid Calcium 8.0 L AST Alkaline Phosphatase Lactate Dehydrogenase 271 H Total Creatine Kinase CK-MB (CK-2) C-Reactive Protein 2.20 H Total Protein 5.0 L Albumin 2.0 L Urine WBC (Auto) Urine Creatinine Urine Total Protein Coronavirus (PCR) Crossmatch 06/04/20 06/04/20 06/04/20 04:19 05:51 11:48 WBC RBC Hgb Hct MCHC RDW Lymph % (Auto) [place] % (Auto) Eos % (Auto) Lymph # [place] # Seg Neutrophils % Seg Neuts % (Manual) Lymphocytes % (Manual) Seg Neutrophils # Seg Neutrophils # Man Lymphocytes # (Manual) Monocytes # (Manual) D-Dimer 414.52 H Heparin Anti-Xa Level ABG pH POC ABG pCO2 POC ABG pO2 ABG pO2 ABG HCO3 ABG O2 Saturation ABG Base Excess ABG Hemoglobin ABG Oxyhemoglobin VBG pH Oxyhemoglobin Sodium Potassium Chloride Carbon Dioxide BUN Creatinine Glucose POC Glucose 179 H 213 H Lactic Acid Calcium AST Alkaline Phosphatase Lactate Dehydrogenase Total Creatine Kinase CK-MB (CK-2) C-Reactive Protein Total Protein Albumin Urine WBC (Auto) Urine Creatinine Urine Total Protein Coronavirus (PCR) Crossmatch 06/04/20 06/05/20 06/05/20 18:25 00:16 05:00 WBC RBC Hgb Hct MCHC RDW Lymph % (Auto) [place] % (Auto) Eos % (Auto) Lymph # [place] # Seg Neutrophils % Seg Neuts % (Manual) Lymphocytes % (Manual) Seg Neutrophils # Seg Neutrophils # Man Lymphocytes # (Manual) Monocytes # (Manual) D-Dimer Heparin Anti-Xa Level ABG pH 7.286 L POC ABG pCO2 POC ABG pO2 ABG pO2 96.2 H ABG HCO3 ABG O2 Saturation ABG Base Excess -6.3 L ABG Hemoglobin 8.8 L ABG Oxyhemoglobin VBG pH Oxyhemoglobin 94.8 L Sodium Potassium Chloride Carbon Dioxide BUN Creatinine Glucose POC Glucose 238 H 183 H Lactic Acid Calcium AST Alkaline Phosphatase Lactate Dehydrogenase Total Creatine Kinase CK-MB (CK-2) C-Reactive Protein Total Protein Albumin Urine WBC (Auto) Urine Creatinine Urine Total Protein Coronavirus (PCR) Crossmatch 06/05/20 06/05/20 06/05/20 05:39 07:25 07:25 WBC RBC 2.97 L Hgb 8.7 L Hct 25.7 L MCHC RDW 16.0 H Lymph % (Auto) 8.8 L [place] % (Auto) 13.3 H Eos % (Auto) Lymph # 0.8 L [place] # 1.3 H Seg Neutrophils % 77.3 H Seg Neuts % (Manual) Lymphocytes % (Manual) Seg Neutrophils # Seg Neutrophils # Man Lymphocytes # (Manual) Monocytes # (Manual) D-Dimer Heparin Anti-Xa Level ABG pH POC ABG pCO2 POC ABG pO2 ABG pO2 ABG HCO3 ABG O2 Saturation ABG Base Excess ABG Hemoglobin ABG Oxyhemoglobin VBG pH Oxyhemoglobin Sodium 133 L Potassium Chloride Carbon Dioxide 17 L BUN 89 H Creatinine 2.8 H Glucose 176 H POC Glucose 149 H Lactic Acid Calcium 7.7 L AST Alkaline Phosphatase Lactate Dehydrogenase Total Creatine Kinase CK-MB (CK-2) C-Reactive Protein Total Protein 4.2 L Albumin 1.9 L Urine WBC (Auto) Urine Creatinine Urine Total Protein Coronavirus (PCR) Crossmatch 06/05/20 06/05/20 06/05/20 07:25 12:05 15:41 WBC RBC Hgb Hct MCHC RDW Lymph % (Auto) [place] % (Auto) Eos % (Auto) Lymph # [place] # Seg Neutrophils % Seg Neuts % (Manual) Lymphocytes % (Manual) Seg Neutrophils # Seg Neutrophils # Man Lymphocytes # (Manual) Monocytes # (Manual) D-Dimer Heparin Anti-Xa Level 0.76 H 0.81 H ABG pH POC ABG pCO2 POC ABG pO2 ABG pO2 ABG HCO3 ABG O2 Saturation ABG Base Excess ABG Hemoglobin ABG Oxyhemoglobin VBG pH Oxyhemoglobin Sodium Potassium Chloride Carbon Dioxide BUN Creatinine Glucose POC Glucose 198 H Lactic Acid Calcium AST Alkaline Phosphatase Lactate Dehydrogenase Total Creatine Kinase CK-MB (CK-2) C-Reactive Protein Total Protein Albumin Urine WBC (Auto) Urine Creatinine Urine Total Protein Coronavirus (PCR) Crossmatch 06/05/20 06/05/20 06/06/20 18:08 23:25 04:00 WBC RBC Hgb Hct MCHC RDW Lymph % (Auto) [place] % (Auto) Eos % (Auto) Lymph # [place] # Seg Neutrophils % Seg Neuts % (Manual) Lymphocytes % (Manual) Seg Neutrophils # Seg Neutrophils # Man Lymphocytes # (Manual) Monocytes # (Manual) D-Dimer Heparin Anti-Xa Level ABG pH POC ABG pCO2 POC ABG pO2 ABG pO2 ABG HCO3 ABG O2 Saturation ABG Base Excess ABG Hemoglobin ABG Oxyhemoglobin VBG pH Oxyhemoglobin Sodium Potassium Chloride Carbon Dioxide BUN Creatinine Glucose POC Glucose 223 H 169 H Lactic Acid Calcium AST Alkaline Phosphatase Lactate Dehydrogenase Total Creatine Kinase CK-MB (CK-2) C-Reactive Protein Total Protein Albumin Urine WBC (Auto) 15.0 H Urine Creatinine Urine Total Protein Coronavirus (PCR) Crossmatch 06/06/20 06/06/20 06/06/20 04:00 05:33 05:38 WBC RBC 2.97 L Hgb 8.7 L Hct 26.8 L MCHC RDW 16.8 H Lymph % (Auto) [place] % (Auto) Eos % (Auto) Lymph # [place] # Seg Neutrophils % Seg Neuts % (Manual) Lymphocytes % (Manual) Seg Neutrophils # Seg Neutrophils # Man Lymphocytes # (Manual) Monocytes # (Manual) D-Dimer Heparin Anti-Xa Level ABG pH POC ABG pCO2 POC ABG pO2 ABG pO2 ABG HCO3 ABG O2 Saturation ABG Base Excess ABG Hemoglobin ABG Oxyhemoglobin VBG pH Oxyhemoglobin Sodium Potassium Chloride Carbon Dioxide BUN Creatinine Glucose POC Glucose 186 H Lactic Acid Calcium AST Alkaline Phosphatase Lactate Dehydrogenase Total Creatine Kinase CK-MB (CK-2) C-Reactive Protein Total Protein Albumin Urine WBC (Auto) Urine Creatinine 82.2 H Urine Total Protein 196 H Coronavirus (PCR) Crossmatch 06/06/20 06/06/20 06/06/20 05:38 12:25 17:03 WBC RBC Hgb Hct MCHC RDW Lymph % (Auto) [place] % (Auto) Eos % (Auto) Lymph # [place] # Seg Neutrophils % Seg Neuts % (Manual) Lymphocytes % (Manual) Seg Neutrophils # Seg Neutrophils # Man Lymphocytes # (Manual) Monocytes # (Manual) D-Dimer Heparin Anti-Xa Level ABG pH POC ABG pCO2 POC ABG pO2 ABG pO2 ABG HCO3 ABG O2 Saturation ABG Base Excess ABG Hemoglobin ABG Oxyhemoglobin VBG pH Oxyhemoglobin Sodium 134 L Potassium 5.2 H Chloride Carbon Dioxide 18 L BUN 97 H Creatinine 2.5 H Glucose 193 H POC Glucose 239 H 252 H Lactic Acid Calcium 7.5 L AST Alkaline Phosphatase Lactate Dehydrogenase Total Creatine Kinase CK-MB (CK-2) C-Reactive Protein Total Protein 4.1 L Albumin 1.9 L Urine WBC (Auto) Urine Creatinine Urine Total Protein Coronavirus (PCR) Crossmatch 06/07/20 06/07/20 06/07/20 00:16 01:49 04:00 WBC RBC 2.91 L Hgb 8.4 L Hct 25.0 L MCHC RDW 16.1 H Lymph % (Auto) 5.7 L [place] % (Auto) 10.5 H Eos % (Auto) Lymph # 0.6 L [place] # 1.1 H Seg Neutrophils % 83.6 H Seg Neuts % (Manual) Lymphocytes % (Manual) Seg Neutrophils # 9.1 H Seg Neutrophils # Man Lymphocytes # (Manual) Monocytes # (Manual) D-Dimer Heparin Anti-Xa Level 0.26 L ABG pH POC ABG pCO2 POC ABG pO2 ABG pO2 ABG HCO3 ABG O2 Saturation ABG Base Excess ABG Hemoglobin ABG Oxyhemoglobin VBG pH Oxyhemoglobin Sodium Potassium Chloride Carbon Dioxide BUN Creatinine Glucose POC Glucose 173 H Lactic Acid Calcium AST Alkaline Phosphatase Lactate Dehydrogenase Total Creatine Kinase CK-MB (CK-2) C-Reactive Protein Total Protein Albumin Urine WBC (Auto) Urine Creatinine Urine Total Protein Coronavirus (PCR) Crossmatch 06/07/20 06/07/20 06/07/20 04:00 04:54 05:51 WBC RBC Hgb Hct MCHC RDW Lymph % (Auto) [place] % (Auto) Eos % (Auto) Lymph # [place] # Seg Neutrophils % Seg Neuts % (Manual) Lymphocytes % (Manual) Seg Neutrophils # Seg Neutrophils # Man Lymphocytes # (Manual) Monocytes # (Manual) D-Dimer Heparin Anti-Xa Level ABG pH 7.317 L POC ABG pCO2 POC ABG pO2 ABG pO2 71.4 L ABG HCO3 ABG O2 Saturation 94.3 L ABG Base Excess -4.8 L ABG Hemoglobin 7.1 L ABG Oxyhemoglobin VBG pH Oxyhemoglobin 92.2 L Sodium 133 L Potassium Chloride Carbon Dioxide 18 L BUN 100 H Creatinine 2.5 H Glucose 158 H POC Glucose 168 H Lactic Acid Calcium 7.6 L AST Alkaline Phosphatase Lactate Dehydrogenase Total Creatine Kinase CK-MB (CK-2) C-Reactive Protein Total Protein 4.7 L Albumin 2.0 L Urine WBC (Auto) Urine Creatinine Urine Total Protein Coronavirus (PCR) Crossmatch 06/07/20 06/07/20 06/07/20 12:03 17:17 20:10 WBC RBC Hgb Hct MCHC RDW Lymph % (Auto) [place] % (Auto) Eos % (Auto) Lymph # [place] # Seg Neutrophils % Seg Neuts % (Manual) Lymphocytes % (Manual) Seg Neutrophils # Seg Neutrophils # Man Lymphocytes # (Manual) Monocytes # (Manual) D-Dimer Heparin Anti-Xa Level 0.17 L ABG pH POC ABG pCO2 POC ABG pO2 ABG pO2 ABG HCO3 ABG O2 Saturation ABG Base Excess ABG Hemoglobin ABG Oxyhemoglobin VBG pH Oxyhemoglobin Sodium Potassium Chloride Carbon Dioxide BUN Creatinine Glucose POC Glucose 276 H 281 H Lactic Acid Calcium AST Alkaline Phosphatase Lactate Dehydrogenase Total Creatine Kinase CK-MB (CK-2) C-Reactive Protein Total Protein Albumin Urine WBC (Auto) Urine Creatinine Urine Total Protein Coronavirus (PCR) Crossmatch 06/08/20 06/08/20 06/08/20 00:02 04:47 04:47 WBC 16.4 H RBC 3.07 L Hgb 8.6 L Hct 26.5 L MCHC RDW 16.3 H Lymph % (Auto) [place] % (Auto) Eos % (Auto) Lymph # [place] # Seg Neutrophils % Seg Neuts % (Manual) 90.0 H Lymphocytes % (Manual) 3.0 L Seg Neutrophils # Seg Neutrophils # Man 14.8 H Lymphocytes # (Manual) 0.5 L Monocytes # (Manual) 1.1 H D-Dimer Heparin Anti-Xa Level ABG pH POC ABG pCO2 POC ABG pO2 ABG pO2 ABG HCO3 ABG O2 Saturation ABG Base Excess ABG Hemoglobin ABG Oxyhemoglobin VBG pH Oxyhemoglobin Sodium 129 L Potassium Chloride 95.6 L Carbon Dioxide 17 L BUN 106 H Creatinine 2.5 H Glucose 213 H POC Glucose 242 H Lactic Acid Calcium 7.6 L AST Alkaline Phosphatase Lactate Dehydrogenase Total Creatine Kinase CK-MB (CK-2) C-Reactive Protein Total Protein 5.0 L Albumin 2.1 L Urine WBC (Auto) Urine Creatinine Urine Total Protein Coronavirus (PCR) Crossmatch 06/08/20 06/08/20 06/08/20 05:40 11:55 17:54 WBC RBC Hgb Hct MCHC RDW Lymph % (Auto) [place] % (Auto) Eos % (Auto) Lymph # [place] # Seg Neutrophils % Seg Neuts % (Manual) Lymphocytes % (Manual) Seg Neutrophils # Seg Neutrophils # Man Lymphocytes # (Manual) Monocytes # (Manual) D-Dimer Heparin Anti-Xa Level ABG pH POC ABG pCO2 POC ABG pO2 ABG pO2 ABG HCO3 ABG O2 Saturation ABG Base Excess ABG Hemoglobin ABG Oxyhemoglobin VBG pH Oxyhemoglobin Sodium Potassium Chloride Carbon Dioxide BUN Creatinine Glucose POC Glucose 221 H 218 H 163 H Lactic Acid Calcium AST Alkaline Phosphatase Lactate Dehydrogenase Total Creatine Kinase CK-MB (CK-2) C-Reactive Protein Total Protein Albumin Urine WBC (Auto) Urine Creatinine Urine Total Protein Coronavirus (PCR) Crossmatch 06/08/20 06/09/20 06/09/20 22:01 00:09 05:16 WBC 19.0 H RBC 3.35 L Hgb 9.2 L Hct 28.5 L MCHC RDW 16.3 H Lymph % (Auto) [place] % (Auto) Eos % (Auto) Lymph # [place] # Seg Neutrophils % Seg Neuts % (Manual) 85.0 H Lymphocytes % (Manual) 7.0 L Seg Neutrophils # Seg Neutrophils # Man 16.2 H Lymphocytes # (Manual) Monocytes # (Manual) 1.3 H D-Dimer Heparin Anti-Xa Level ABG pH POC ABG pCO2 POC ABG pO2 ABG pO2 ABG HCO3 ABG O2 Saturation ABG Base Excess ABG Hemoglobin ABG Oxyhemoglobin VBG pH Oxyhemoglobin Sodium Potassium Chloride Carbon Dioxide BUN Creatinine Glucose POC Glucose 182 H 150 H Lactic Acid Calcium AST Alkaline Phosphatase Lactate Dehydrogenase Total Creatine Kinase CK-MB (CK-2) C-Reactive Protein Total Protein Albumin Urine WBC (Auto) Urine Creatinine Urine Total Protein Coronavirus (PCR) Crossmatch 06/09/20 06/09/20 06/09/20 05:16 05:24 11:29 WBC RBC Hgb Hct MCHC RDW Lymph % (Auto) [place] % (Auto) Eos % (Auto) Lymph # [place] # Seg Neutrophils % Seg Neuts % (Manual) Lymphocytes % (Manual) Seg Neutrophils # Seg Neutrophils # Man Lymphocytes # (Manual) Monocytes # (Manual) D-Dimer Heparin Anti-Xa Level ABG pH POC ABG pCO2 POC ABG pO2 ABG pO2 ABG HCO3 ABG O2 Saturation ABG Base Excess ABG Hemoglobin ABG Oxyhemoglobin VBG pH Oxyhemoglobin Sodium 133 L Potassium Chloride Carbon Dioxide 19 L BUN 109 H Creatinine 2.1 H Glucose 133 H POC Glucose 128 H 119 H Lactic Acid Calcium 7.7 L AST Alkaline Phosphatase < 5 L Lactate Dehydrogenase Total Creatine Kinase CK-MB (CK-2) C-Reactive Protein Total Protein 4.6 L Albumin < 0.2 L Urine WBC (Auto) Urine Creatinine Urine Total Protein Coronavirus (PCR) Crossmatch 06/09/20 06/10/20 06/10/20 17:32 00:00 05:49 WBC RBC Hgb Hct MCHC RDW Lymph % (Auto) [place] % (Auto) Eos % (Auto) Lymph # [place] # Seg Neutrophils % Seg Neuts % (Manual) Lymphocytes % (Manual) Seg Neutrophils # Seg Neutrophils # Man Lymphocytes # (Manual) Monocytes # (Manual) D-Dimer Heparin Anti-Xa Level 0.19 L ABG pH POC ABG pCO2 POC ABG pO2 ABG pO2 ABG HCO3 ABG O2 Saturation ABG Base Excess ABG Hemoglobin ABG Oxyhemoglobin VBG pH Oxyhemoglobin Sodium Potassium Chloride Carbon Dioxide BUN Creatinine Glucose POC Glucose 106 H 117 H Lactic Acid Calcium AST Alkaline Phosphatase Lactate Dehydrogenase Total Creatine Kinase CK-MB (CK-2) C-Reactive Protein Total Protein Albumin Urine WBC (Auto) Urine Creatinine Urine Total Protein Coronavirus (PCR) Crossmatch 06/10/20 06/10/20 06/10/20 05:54 07:40 11:40 WBC RBC Hgb Hct MCHC RDW Lymph % (Auto) [place] % (Auto) Eos % (Auto) Lymph # [place] # Seg Neutrophils % Seg Neuts % (Manual) Lymphocytes % (Manual) Seg Neutrophils # Seg Neutrophils # Man Lymphocytes # (Manual) Monocytes # (Manual) D-Dimer Heparin Anti-Xa Level ABG pH POC ABG pCO2 POC ABG pO2 ABG pO2 ABG HCO3 ABG O2 Saturation ABG Base Excess ABG Hemoglobin ABG Oxyhemoglobin VBG pH Oxyhemoglobin Sodium 146 H D Potassium Chloride Carbon Dioxide 20 L BUN 99 H Creatinine 1.9 H Glucose 121 H POC Glucose 127 H 138 H Lactic Acid Calcium 8.2 L AST Alkaline Phosphatase Lactate Dehydrogenase Total Creatine Kinase CK-MB (CK-2) C-Reactive Protein Total Protein Albumin Urine WBC (Auto) Urine Creatinine Urine Total Protein Coronavirus (PCR) Crossmatch 06/10/20 06/10/20 06/10/20 14:44 17:31 23:22 WBC RBC Hgb Hct MCHC RDW Lymph % (Auto) [place] % (Auto) Eos % (Auto) Lymph # [place] # Seg Neutrophils % Seg Neuts % (Manual) Lymphocytes % (Manual) Seg Neutrophils # Seg Neutrophils # Man Lymphocytes # (Manual) Monocytes # (Manual) D-Dimer Heparin Anti-Xa Level 0.17 L ABG pH POC ABG pCO2 POC ABG pO2 ABG pO2 ABG HCO3 ABG O2 Saturation ABG Base Excess ABG Hemoglobin ABG Oxyhemoglobin VBG pH Oxyhemoglobin Sodium Potassium Chloride Carbon Dioxide BUN Creatinine Glucose POC Glucose 128 H 114 H Lactic Acid Calcium AST Alkaline Phosphatase Lactate Dehydrogenase Total Creatine Kinase CK-MB (CK-2) C-Reactive Protein Total Protein Albumin Urine WBC (Auto) Urine Creatinine Urine Total Protein Coronavirus (PCR) Crossmatch 06/11/20 06/11/20 06/11/20 00:22 03:45 03:45 WBC 14.6 H RBC 2.77 L Hgb 7.9 L Hct 24.3 L MCHC RDW 16.8 H Lymph % (Auto) 6.6 L [place] % (Auto) 8.5 H Eos % (Auto) Lymph # 1.0 L [place] # 1.2 H Seg Neutrophils % 82.9 H Seg Neuts % (Manual) Lymphocytes % (Manual) Seg Neutrophils # 12.1 H Seg Neutrophils # Man Lymphocytes # (Manual) Monocytes # (Manual) D-Dimer Heparin Anti-Xa Level 0.24 L ABG pH POC ABG pCO2 POC ABG pO2 ABG pO2 ABG HCO3 ABG O2 Saturation ABG Base Excess ABG Hemoglobin ABG Oxyhemoglobin VBG pH Oxyhemoglobin Sodium Potassium Chloride Carbon Dioxide 20 L BUN 88 H Creatinine 1.5 H Glucose 111 H POC Glucose Lactic Acid Calcium 8.2 L AST Alkaline Phosphatase Lactate Dehydrogenase Total Creatine Kinase CK-MB (CK-2) C-Reactive Protein Total Protein Albumin Urine WBC (Auto) Urine Creatinine Urine Total Protein Coronavirus (PCR) Crossmatch 06/11/20 06/11/20 06/11/20 06:03 10:22 11:11 WBC RBC Hgb Hct MCHC RDW Lymph % (Auto) [place] % (Auto) Eos % (Auto) Lymph # [place] # Seg Neutrophils % Seg Neuts % (Manual) Lymphocytes % (Manual) Seg Neutrophils # Seg Neutrophils # Man Lymphocytes # (Manual) Monocytes # (Manual) D-Dimer Heparin Anti-Xa Level 0.26 L ABG pH POC ABG pCO2 POC ABG pO2 ABG pO2 ABG HCO3 ABG O2 Saturation ABG Base Excess ABG Hemoglobin 9.6 L ABG Oxyhemoglobin VBG pH Oxyhemoglobin Sodium Potassium Chloride Carbon Dioxide BUN Creatinine Glucose POC Glucose 114 H Lactic Acid Calcium AST Alkaline Phosphatase Lactate Dehydrogenase Total Creatine Kinase CK-MB (CK-2) C-Reactive Protein Total Protein Albumin Urine WBC (Auto) Urine Creatinine Urine Total Protein Coronavirus (PCR) Crossmatch 06/11/20 06/11/20 06/12/20 12:24 17:24 00:21 WBC RBC Hgb Hct MCHC RDW Lymph % (Auto) [place] % (Auto) Eos % (Auto) Lymph # [place] # Seg Neutrophils % Seg Neuts % (Manual) Lymphocytes % (Manual) Seg Neutrophils # Seg Neutrophils # Man Lymphocytes # (Manual) Monocytes # (Manual) D-Dimer Heparin Anti-Xa Level ABG pH POC ABG pCO2 POC ABG pO2 ABG pO2 ABG HCO3 ABG O2 Saturation ABG Base Excess ABG Hemoglobin ABG Oxyhemoglobin VBG pH Oxyhemoglobin Sodium Potassium Chloride Carbon Dioxide BUN Creatinine Glucose POC Glucose 119 H 126 H 117 H Lactic Acid Calcium AST Alkaline Phosphatase Lactate Dehydrogenase Total Creatine Kinase CK-MB (CK-2) C-Reactive Protein Total Protein Albumin Urine WBC (Auto) Urine Creatinine Urine Total Protein Coronavirus (PCR) Crossmatch 06/12/20 06/12/20 06/12/20 02:46 02:46 05:46 WBC 13.2 H RBC 2.83 L Hgb 8.3 L Hct 24.3 L MCHC RDW 16.6 H Lymph % (Auto) 6.2 L [place] % (Auto) 9.5 H Eos % (Auto) Lymph # 0.8 L [place] # 1.3 H Seg Neutrophils % 81.9 H Seg Neuts % (Manual) Lymphocytes % (Manual) Seg Neutrophils # 10.9 H Seg Neutrophils # Man Lymphocytes # (Manual) Monocytes # (Manual) D-Dimer Heparin Anti-Xa Level ABG pH POC ABG pCO2 POC ABG pO2 ABG pO2 ABG HCO3 ABG O2 Saturation ABG Base Excess ABG Hemoglobin ABG Oxyhemoglobin VBG pH Oxyhemoglobin Sodium Potassium 3.5 L Chloride Carbon Dioxide BUN 77 H Creatinine 1.3 H Glucose POC Glucose 132 H Lactic Acid Calcium 8.3 L AST Alkaline Phosphatase Lactate Dehydrogenase Total Creatine Kinase CK-MB (CK-2) C-Reactive Protein Total Protein Albumin Urine WBC (Auto) Urine Creatinine Urine Total Protein Coronavirus (PCR) Crossmatch 06/12/20 06/12/20 06/12/20 09:20 12:16 17:48 WBC RBC Hgb Hct MCHC RDW Lymph % (Auto) [place] % (Auto) Eos % (Auto) Lymph # [place] # Seg Neutrophils % Seg Neuts % (Manual) Lymphocytes % (Manual) Seg Neutrophils # Seg Neutrophils # Man Lymphocytes # (Manual) Monocytes # (Manual) D-Dimer Heparin Anti-Xa Level ABG pH POC ABG pCO2 POC ABG pO2 ABG pO2 91.1 H ABG HCO3 ABG O2 Saturation ABG Base Excess ABG Hemoglobin ABG Oxyhemoglobin VBG pH Oxyhemoglobin 94.8 L Sodium Potassium Chloride Carbon Dioxide BUN Creatinine Glucose POC Glucose 167 H 182 H Lactic Acid Calcium AST Alkaline Phosphatase Lactate Dehydrogenase Total Creatine Kinase CK-MB (CK-2) C-Reactive Protein Total Protein Albumin Urine WBC (Auto) Urine Creatinine Urine Total Protein Coronavirus (PCR) Crossmatch 06/13/20 06/13/20 06/13/20 00:08 05:37 09:09 WBC RBC Hgb Hct MCHC RDW Lymph % (Auto) [place] % (Auto) Eos % (Auto) Lymph # [place] # Seg Neutrophils % Seg Neuts % (Manual) Lymphocytes % (Manual) Seg Neutrophils # Seg Neutrophils # Man Lymphocytes # (Manual) Monocytes # (Manual) D-Dimer Heparin Anti-Xa Level 0.86 H ABG pH POC ABG pCO2 POC ABG pO2 ABG pO2 ABG HCO3 ABG O2 Saturation ABG Base Excess ABG Hemoglobin ABG Oxyhemoglobin VBG pH Oxyhemoglobin Sodium Potassium Chloride Carbon Dioxide BUN Creatinine Glucose POC Glucose 142 H 119 H Lactic Acid Calcium AST Alkaline Phosphatase Lactate Dehydrogenase Total Creatine Kinase CK-MB (CK-2) C-Reactive Protein Total Protein Albumin Urine WBC (Auto) Urine Creatinine Urine Total Protein Coronavirus (PCR) Crossmatch 06/13/20 06/13/20 06/13/20 12:28 17:55 21:17 WBC RBC Hgb Hct MCHC RDW Lymph % (Auto) [place] % (Auto) Eos % (Auto) Lymph # [place] # Seg Neutrophils % Seg Neuts % (Manual) Lymphocytes % (Manual) Seg Neutrophils # Seg Neutrophils # Man Lymphocytes # (Manual) Monocytes # (Manual) D-Dimer Heparin Anti-Xa Level ABG pH POC ABG pCO2 POC ABG pO2 ABG pO2 ABG HCO3 ABG O2 Saturation ABG Base Excess ABG Hemoglobin ABG Oxyhemoglobin VBG pH Oxyhemoglobin Sodium Potassium Chloride Carbon Dioxide BUN 61 H Creatinine Glucose 131 H POC Glucose 165 H 174 H Lactic Acid Calcium AST Alkaline Phosphatase Lactate Dehydrogenase Total Creatine Kinase CK-MB (CK-2) C-Reactive Protein Total Protein Albumin Urine WBC (Auto) Urine Creatinine Urine Total Protein Coronavirus (PCR) Crossmatch 06/13/20 06/13/20 06/14/20 21:17 23:50 05:34 WBC RBC Hgb Hct MCHC RDW Lymph % (Auto) [place] % (Auto) Eos % (Auto) Lymph # [place] # Seg Neutrophils % Seg Neuts % (Manual) Lymphocytes % (Manual) Seg Neutrophils # Seg Neutrophils # Man Lymphocytes # (Manual) Monocytes # (Manual) D-Dimer Heparin Anti-Xa Level 0.72 H ABG pH POC ABG pCO2 POC ABG pO2 ABG pO2 ABG HCO3 ABG O2 Saturation ABG Base Excess ABG Hemoglobin ABG Oxyhemoglobin VBG pH Oxyhemoglobin Sodium 146 H Potassium Chloride 107.6 H Carbon Dioxide BUN 61 H Creatinine 1.3 H Glucose 135 H POC Glucose 146 H Lactic Acid Calcium AST Alkaline Phosphatase Lactate Dehydrogenase Total Creatine Kinase CK-MB (CK-2) C-Reactive Protein Total Protein Albumin Urine WBC (Auto) Urine Creatinine Urine Total Protein Coronavirus (PCR) Crossmatch 06/14/20 06/14/20 06/14/20 06:11 09:28 11:30 WBC RBC Hgb Hct MCHC RDW Lymph % (Auto) [place] % (Auto) Eos % (Auto) Lymph # [place] # Seg Neutrophils % Seg Neuts % (Manual) Lymphocytes % (Manual) Seg Neutrophils # Seg Neutrophils # Man Lymphocytes # (Manual) Monocytes # (Manual) D-Dimer Heparin Anti-Xa Level 0.90 H ABG pH POC ABG pCO2 POC ABG pO2 ABG pO2 ABG HCO3 ABG O2 Saturation ABG Base Excess ABG Hemoglobin ABG Oxyhemoglobin VBG pH Oxyhemoglobin Sodium Potassium Chloride Carbon Dioxide BUN Creatinine Glucose POC Glucose 141 H 186 H Lactic Acid Calcium AST Alkaline Phosphatase Lactate Dehydrogenase Total Creatine Kinase CK-MB (CK-2) C-Reactive Protein Total Protein Albumin Urine WBC (Auto) Urine Creatinine Urine Total Protein Coronavirus (PCR) Crossmatch 06/14/20 06/14/20 06/14/20 16:07 18:16 23:51 WBC RBC Hgb Hct MCHC RDW Lymph % (Auto) [place] % (Auto) Eos % (Auto) Lymph # [place] # Seg Neutrophils % Seg Neuts % (Manual) Lymphocytes % (Manual) Seg Neutrophils # Seg Neutrophils # Man Lymphocytes # (Manual) Monocytes # (Manual) D-Dimer Heparin Anti-Xa Level 0.82 H ABG pH POC ABG pCO2 POC ABG pO2 ABG pO2 ABG HCO3 ABG O2 Saturation ABG Base Excess ABG Hemoglobin ABG Oxyhemoglobin VBG pH Oxyhemoglobin Sodium Potassium Chloride Carbon Dioxide BUN Creatinine Glucose POC Glucose 106 H 154 H Lactic Acid Calcium AST Alkaline Phosphatase Lactate Dehydrogenase Total Creatine Kinase CK-MB (CK-2) C-Reactive Protein Total Protein Albumin Urine WBC (Auto) Urine Creatinine Urine Total Protein Coronavirus (PCR) Crossmatch 06/15/20 06/15/20 06/15/20 04:24 04:24 05:59 WBC RBC 2.75 L Hgb 7.9 L Hct 24.0 L MCHC RDW 16.4 H Lymph % (Auto) 12.9 L [place] % (Auto) 8.7 H Eos % (Auto) 4.6 H Lymph # 1.1 L [place] # Seg Neutrophils % 73.2 H Seg Neuts % (Manual) Lymphocytes % (Manual) Seg Neutrophils # Seg Neutrophils # Man Lymphocytes # (Manual) Monocytes # (Manual) D-Dimer Heparin Anti-Xa Level ABG pH POC ABG pCO2 POC ABG pO2 ABG pO2 ABG HCO3 ABG O2 Saturation ABG Base Excess ABG Hemoglobin ABG Oxyhemoglobin VBG pH Oxyhemoglobin Sodium Potassium 3.4 L Chloride Carbon Dioxide BUN 55 H Creatinine 1.3 H Glucose 142 H POC Glucose 131 H Lactic Acid Calcium AST Alkaline Phosphatase Lactate Dehydrogenase Total Creatine Kinase CK-MB (CK-2) C-Reactive Protein Total Protein Albumin Urine WBC (Auto) Urine Creatinine Urine Total Protein Coronavirus (PCR) Crossmatch 06/15/20 06/15/20 06/16/20 12:33 17:07 00:22 WBC RBC Hgb Hct MCHC RDW Lymph % (Auto) [place] % (Auto) Eos % (Auto) Lymph # [place] # Seg Neutrophils % Seg Neuts % (Manual) Lymphocytes % (Manual) Seg Neutrophils # Seg Neutrophils # Man Lymphocytes # (Manual) Monocytes # (Manual) D-Dimer Heparin Anti-Xa Level 0.21 L ABG pH POC ABG pCO2 POC ABG pO2 ABG pO2 ABG HCO3 ABG O2 Saturation ABG Base Excess ABG Hemoglobin ABG Oxyhemoglobin VBG pH Oxyhemoglobin Sodium Potassium Chloride Carbon Dioxide BUN Creatinine Glucose POC Glucose 180 H 185 H Lactic Acid Calcium AST Alkaline Phosphatase Lactate Dehydrogenase Total Creatine Kinase CK-MB (CK-2) C-Reactive Protein Total Protein Albumin Urine WBC (Auto) Urine Creatinine Urine Total Protein Coronavirus (PCR) Crossmatch 06/16/20 06/16/20 06/16/20 01:45 08:06 09:15 WBC RBC Hgb Hct MCHC RDW Lymph % (Auto) [place] % (Auto) Eos % (Auto) Lymph # [place] # Seg Neutrophils % Seg Neuts % (Manual) Lymphocytes % (Manual) Seg Neutrophils # Seg Neutrophils # Man Lymphocytes # (Manual) Monocytes # (Manual) D-Dimer Heparin Anti-Xa Level ABG pH POC ABG pCO2 POC ABG pO2 ABG pO2 ABG HCO3 ABG O2 Saturation ABG Base Excess ABG Hemoglobin ABG Oxyhemoglobin VBG pH Oxyhemoglobin Sodium Potassium Chloride Carbon Dioxide BUN 49 H Creatinine Glucose 154 H POC Glucose 140 H 171 H Lactic Acid Calcium AST Alkaline Phosphatase Lactate Dehydrogenase Total Creatine Kinase CK-MB (CK-2) C-Reactive Protein Total Protein Albumin Urine WBC (Auto) Urine Creatinine Urine Total Protein Coronavirus (PCR) Crossmatch 06/16/20 06/16/20 06/16/20 10:46 12:33 17:54 WBC RBC Hgb Hct MCHC RDW Lymph % (Auto) [place] % (Auto) Eos % (Auto) Lymph # [place] # Seg Neutrophils % Seg Neuts % (Manual) Lymphocytes % (Manual) Seg Neutrophils # Seg Neutrophils # Man Lymphocytes # (Manual) Monocytes # (Manual) D-Dimer Heparin Anti-Xa Level 0.12 L ABG pH POC ABG pCO2 POC ABG pO2 ABG pO2 ABG HCO3 ABG O2 Saturation ABG Base Excess ABG Hemoglobin ABG Oxyhemoglobin VBG pH Oxyhemoglobin Sodium Potassium Chloride Carbon Dioxide BUN Creatinine Glucose POC Glucose 166 H 151 H Lactic Acid Calcium AST Alkaline Phosphatase Lactate Dehydrogenase Total Creatine Kinase CK-MB (CK-2) C-Reactive Protein Total Protein Albumin Urine WBC (Auto) Urine Creatinine Urine Total Protein Coronavirus (PCR) Crossmatch 06/16/20 06/17/20 06/17/20 18:47 00:00 02:19 WBC RBC Hgb Hct MCHC RDW Lymph % (Auto) [place] % (Auto) Eos % (Auto) Lymph # [place] # Seg Neutrophils % Seg Neuts % (Manual) Lymphocytes % (Manual) Seg Neutrophils # Seg Neutrophils # Man Lymphocytes # (Manual) Monocytes # (Manual) D-Dimer Heparin Anti-Xa Level 0.73 H 0.77 H ABG pH POC ABG pCO2 POC ABG pO2 ABG pO2 ABG HCO3 ABG O2 Saturation ABG Base Excess ABG Hemoglobin ABG Oxyhemoglobin VBG pH Oxyhemoglobin Sodium Potassium Chloride Carbon Dioxide BUN Creatinine Glucose POC Glucose 139 H Lactic Acid Calcium AST Alkaline Phosphatase Lactate Dehydrogenase Total Creatine Kinase CK-MB (CK-2) C-Reactive Protein Total Protein Albumin Urine WBC (Auto) Urine Creatinine Urine Total Protein Coronavirus (PCR) Crossmatch 06/17/20 06/17/20 06/17/20 06:07 11:42 16:43 WBC RBC Hgb Hct MCHC RDW Lymph % (Auto) [place] % (Auto) Eos % (Auto) Lymph # [place] # Seg Neutrophils % Seg Neuts % (Manual) Lymphocytes % (Manual) Seg Neutrophils # Seg Neutrophils # Man Lymphocytes # (Manual) Monocytes # (Manual) D-Dimer Heparin Anti-Xa Level 0.73 H ABG pH POC ABG pCO2 POC ABG pO2 ABG pO2 ABG HCO3 ABG O2 Saturation ABG Base Excess ABG Hemoglobin ABG Oxyhemoglobin VBG pH Oxyhemoglobin Sodium Potassium Chloride Carbon Dioxide BUN Creatinine Glucose POC Glucose 169 H 169 H Lactic Acid Calcium AST Alkaline Phosphatase Lactate Dehydrogenase Total Creatine Kinase CK-MB (CK-2) C-Reactive Protein Total Protein Albumin Urine WBC (Auto) Urine Creatinine Urine Total Protein Coronavirus (PCR) Crossmatch 06/17/20 06/17/20 06/17/20 18:18 23:08 23:16 WBC RBC Hgb Hct MCHC RDW Lymph % (Auto) [place] % (Auto) Eos % (Auto) Lymph # [place] # Seg Neutrophils % Seg Neuts % (Manual) Lymphocytes % (Manual) Seg Neutrophils # Seg Neutrophils # Man Lymphocytes # (Manual) Monocytes # (Manual) D-Dimer Heparin Anti-Xa Level 0.71 H ABG pH POC ABG pCO2 POC ABG pO2 ABG pO2 ABG HCO3 ABG O2 Saturation ABG Base Excess ABG Hemoglobin ABG Oxyhemoglobin VBG pH Oxyhemoglobin Sodium Potassium Chloride Carbon Dioxide BUN Creatinine Glucose POC Glucose 159 H 134 H Lactic Acid Calcium AST Alkaline Phosphatase Lactate Dehydrogenase Total Creatine Kinase CK-MB (CK-2) C-Reactive Protein Total Protein Albumin Urine WBC (Auto) Urine Creatinine Urine Total Protein Coronavirus (PCR) Crossmatch 06/18/20 06/18/20 06/18/20 04:42 05:52 11:50 WBC RBC Hgb Hct MCHC RDW Lymph % (Auto) [place] % (Auto) Eos % (Auto) Lymph # [place] # Seg Neutrophils % Seg Neuts % (Manual) Lymphocytes % (Manual) Seg Neutrophils # Seg Neutrophils # Man Lymphocytes # (Manual) Monocytes # (Manual) D-Dimer Heparin Anti-Xa Level ABG pH POC ABG pCO2 POC ABG pO2 ABG pO2 ABG HCO3 ABG O2 Saturation ABG Base Excess ABG Hemoglobin ABG Oxyhemoglobin VBG pH Oxyhemoglobin Sodium Potassium Chloride Carbon Dioxide BUN 44 H Creatinine Glucose 115 H POC Glucose 171 H 167 H Lactic Acid Calcium AST Alkaline Phosphatase Lactate Dehydrogenase Total Creatine Kinase CK-MB (CK-2) C-Reactive Protein Total Protein Albumin Urine WBC (Auto) Urine Creatinine Urine Total Protein Coronavirus (PCR) Crossmatch 06/18/20 06/19/20 06/19/20 23:46 05:48 07:52 WBC RBC Hgb Hct MCHC RDW Lymph % (Auto) [place] % (Auto) Eos % (Auto) Lymph # [place] # Seg Neutrophils % Seg Neuts % (Manual) Lymphocytes % (Manual) Seg Neutrophils # Seg Neutrophils # Man Lymphocytes # (Manual) Monocytes # (Manual) D-Dimer Heparin Anti-Xa Level ABG pH POC ABG pCO2 POC ABG pO2 ABG pO2 ABG HCO3 ABG O2 Saturation ABG Base Excess ABG Hemoglobin ABG Oxyhemoglobin VBG pH Oxyhemoglobin Sodium Potassium Chloride Carbon Dioxide BUN Creatinine Glucose POC Glucose 130 H 207 H 175 H Lactic Acid Calcium AST Alkaline Phosphatase Lactate Dehydrogenase Total Creatine Kinase CK-MB (CK-2) C-Reactive Protein Total Protein Albumin Urine WBC (Auto) Urine Creatinine Urine Total Protein Coronavirus (PCR) Crossmatch 06/19/20 06/19/20 06/20/20 11:42 22:54 05:17 WBC RBC Hgb Hct MCHC RDW Lymph % (Auto) [place] % (Auto) Eos % (Auto) Lymph # [place] # Seg Neutrophils % Seg Neuts % (Manual) Lymphocytes % (Manual) Seg Neutrophils # Seg Neutrophils # Man Lymphocytes # (Manual) Monocytes # (Manual) D-Dimer Heparin Anti-Xa Level ABG pH POC ABG pCO2 POC ABG pO2 ABG pO2 ABG HCO3 ABG O2 Saturation ABG Base Excess ABG Hemoglobin ABG Oxyhemoglobin VBG pH Oxyhemoglobin Sodium Potassium Chloride Carbon Dioxide BUN Creatinine Glucose POC Glucose 166 H 135 H 218 H Lactic Acid Calcium AST Alkaline Phosphatase Lactate Dehydrogenase Total Creatine Kinase CK-MB (CK-2) C-Reactive Protein Total Protein Albumin Urine WBC (Auto) Urine Creatinine Urine Total Protein Coronavirus (PCR) Crossmatch 06/20/20 06/20/20 06/20/20 12:04 16:25 16:35 WBC RBC Hgb Hct MCHC RDW Lymph % (Auto) [place] % (Auto) Eos % (Auto) Lymph # [place] # Seg Neutrophils % Seg Neuts % (Manual) Lymphocytes % (Manual) Seg Neutrophils # Seg Neutrophils # Man Lymphocytes # (Manual) Monocytes # (Manual) D-Dimer Heparin Anti-Xa Level ABG pH POC ABG pCO2 POC ABG pO2 ABG pO2 59.6 L ABG HCO3 28.7 H ABG O2 Saturation 93.5 L ABG Base Excess 3.4 H ABG Hemoglobin 7.2 L ABG Oxyhemoglobin VBG pH Oxyhemoglobin 91.3 L Sodium Potassium Chloride Carbon Dioxide BUN Creatinine Glucose POC Glucose 194 H 137 H Lactic Acid Calcium AST Alkaline Phosphatase Lactate Dehydrogenase Total Creatine Kinase CK-MB (CK-2) C-Reactive Protein Total Protein Albumin Urine WBC (Auto) Urine Creatinine Urine Total Protein Coronavirus (PCR) Crossmatch 06/20/20 06/21/20 06/21/20 23:59 06:25 12:01 WBC RBC Hgb Hct MCHC RDW Lymph % (Auto) [place] % (Auto) Eos % (Auto) Lymph # [place] # Seg Neutrophils % Seg Neuts % (Manual) Lymphocytes % (Manual) Seg Neutrophils # Seg Neutrophils # Man Lymphocytes # (Manual) Monocytes # (Manual) D-Dimer Heparin Anti-Xa Level ABG pH POC ABG pCO2 POC ABG pO2 ABG pO2 ABG HCO3 ABG O2 Saturation ABG Base Excess ABG Hemoglobin ABG Oxyhemoglobin VBG pH Oxyhemoglobin Sodium Potassium Chloride Carbon Dioxide BUN Creatinine Glucose POC Glucose 156 H 177 H 195 H Lactic Acid Calcium AST Alkaline Phosphatase Lactate Dehydrogenase Total Creatine Kinase CK-MB (CK-2) C-Reactive Protein Total Protein Albumin Urine WBC (Auto) Urine Creatinine Urine Total Protein Coronavirus (PCR) Crossmatch 06/21/20 06/21/20 06/22/20 17:04 21:51 05:06 WBC RBC Hgb Hct MCHC RDW Lymph % (Auto) [place] % (Auto) Eos % (Auto) Lymph # [place] # Seg Neutrophils % Seg Neuts % (Manual) Lymphocytes % (Manual) Seg Neutrophils # Seg Neutrophils # Man Lymphocytes # (Manual) Monocytes # (Manual) D-Dimer Heparin Anti-Xa Level ABG pH POC ABG pCO2 POC ABG pO2 ABG pO2 ABG HCO3 ABG O2 Saturation ABG Base Excess ABG Hemoglobin ABG Oxyhemoglobin VBG pH Oxyhemoglobin Sodium Potassium Chloride Carbon Dioxide BUN Creatinine Glucose POC Glucose 156 H 154 H 167 H Lactic Acid Calcium AST Alkaline Phosphatase Lactate Dehydrogenase Total Creatine Kinase CK-MB (CK-2) C-Reactive Protein Total Protein Albumin Urine WBC (Auto) Urine Creatinine Urine Total Protein Coronavirus (PCR) Crossmatch 06/22/20 06/22/20 06/22/20 11:20 15:27 16:58 WBC RBC Hgb Hct MCHC RDW Lymph % (Auto) [place] % (Auto) Eos % (Auto) Lymph # [place] # Seg Neutrophils % Seg Neuts % (Manual) Lymphocytes % (Manual) Seg Neutrophils # Seg Neutrophils # Man Lymphocytes # (Manual) Monocytes # (Manual) D-Dimer Heparin Anti-Xa Level ABG pH 7.206 L POC ABG pCO2 79.9 H POC ABG pO2 ABG pO2 ABG HCO3 ABG O2 Saturation ABG Base Excess ABG Hemoglobin 8.3 L ABG Oxyhemoglobin VBG pH Oxyhemoglobin Sodium Potassium Chloride Carbon Dioxide BUN Creatinine Glucose POC Glucose 181 H 230 H Lactic Acid Calcium AST Alkaline Phosphatase Lactate Dehydrogenase Total Creatine Kinase CK-MB (CK-2) C-Reactive Protein Total Protein Albumin Urine WBC (Auto) Urine Creatinine Urine Total Protein Coronavirus (PCR) Crossmatch 06/22/20 06/23/20 06/23/20 22:26 05:49 05:49 WBC RBC 2.58 L Hgb 7.4 L Hct 23.2 L MCHC RDW 17.0 H Lymph % (Auto) [place] % (Auto) 11.2 H Eos % (Auto) Lymph # 1.0 L [place] # Seg Neutrophils % Seg Neuts % (Manual) Lymphocytes % (Manual) Seg Neutrophils # Seg Neutrophils # Man Lymphocytes # (Manual) Monocytes # (Manual) D-Dimer Heparin Anti-Xa Level ABG pH POC ABG pCO2 POC ABG pO2 ABG pO2 ABG HCO3 ABG O2 Saturation ABG Base Excess ABG Hemoglobin ABG Oxyhemoglobin VBG pH Oxyhemoglobin Sodium Potassium Chloride Carbon Dioxide BUN 68 H Creatinine 2.4 H Glucose 198 H POC Glucose 195 H Lactic Acid Calcium AST Alkaline Phosphatase Lactate Dehydrogenase Total Creatine Kinase CK-MB (CK-2) C-Reactive Protein Total Protein Albumin Urine WBC (Auto) Urine Creatinine Urine Total Protein Coronavirus (PCR) Crossmatch 06/23/20 06/23/20 06/23/20 05:50 12:29 12:34 WBC RBC Hgb Hct MCHC RDW Lymph % (Auto) [place] % (Auto) Eos % (Auto) Lymph # [place] # Seg Neutrophils % Seg Neuts % (Manual) Lymphocytes % (Manual) Seg Neutrophils # Seg Neutrophils # Man Lymphocytes # (Manual) Monocytes # (Manual) D-Dimer Heparin Anti-Xa Level ABG pH POC ABG pCO2 54.7 H POC ABG pO2 68.8 L ABG pO2 ABG HCO3 ABG O2 Saturation ABG Base Excess ABG Hemoglobin 9.8 L ABG Oxyhemoglobin 92.6 L VBG pH Oxyhemoglobin Sodium Potassium Chloride Carbon Dioxide BUN Creatinine Glucose POC Glucose 202 H 218 H Lactic Acid Calcium AST Alkaline Phosphatase Lactate Dehydrogenase Total Creatine Kinase CK-MB (CK-2) C-Reactive Protein Total Protein Albumin Urine WBC (Auto) Urine Creatinine Urine Total Protein Coronavirus (PCR) Crossmatch 06/23/20 06/23/20 06/24/20 16:02 22:22 01:06 WBC RBC Hgb Hct MCHC RDW Lymph % (Auto) [place] % (Auto) Eos % (Auto) Lymph # [place] # Seg Neutrophils % Seg Neuts % (Manual) Lymphocytes % (Manual) Seg Neutrophils # Seg Neutrophils # Man Lymphocytes # (Manual) Monocytes # (Manual) D-Dimer Heparin Anti-Xa Level ABG pH POC ABG pCO2 POC ABG pO2 ABG pO2 ABG HCO3 ABG O2 Saturation ABG Base Excess ABG Hemoglobin ABG Oxyhemoglobin VBG pH Oxyhemoglobin Sodium Potassium Chloride Carbon Dioxide BUN Creatinine Glucose POC Glucose 190 H 166 H 171 H Lactic Acid Calcium AST Alkaline Phosphatase Lactate Dehydrogenase Total Creatine Kinase CK-MB (CK-2) C-Reactive Protein Total Protein Albumin Urine WBC (Auto) Urine Creatinine Urine Total Protein Coronavirus (PCR) Crossmatch 06/24/20 06/24/20 06/24/20 04:48 05:35 11:48 WBC RBC Hgb Hct MCHC RDW Lymph % (Auto) [place] % (Auto) Eos % (Auto) Lymph # [place] # Seg Neutrophils % Seg Neuts % (Manual) Lymphocytes % (Manual) Seg Neutrophils # Seg Neutrophils # Man Lymphocytes # (Manual) Monocytes # (Manual) D-Dimer Heparin Anti-Xa Level ABG pH POC ABG pCO2 POC ABG pO2 ABG pO2 ABG HCO3 ABG O2 Saturation ABG Base Excess ABG Hemoglobin ABG Oxyhemoglobin VBG pH Oxyhemoglobin Sodium Potassium Chloride Carbon Dioxide BUN 75 H Creatinine 2.6 H Glucose 179 H POC Glucose 172 H 153 H Lactic Acid Calcium AST Alkaline Phosphatase Lactate Dehydrogenase Total Creatine Kinase CK-MB (CK-2) C-Reactive Protein Total Protein Albumin Urine WBC (Auto) Urine Creatinine Urine Total Protein Coronavirus (PCR) Crossmatch 06/24/20 06/24/20 06/25/20 16:38 21:52 12:00 WBC RBC Hgb Hct MCHC RDW Lymph % (Auto) [place] % (Auto) Eos % (Auto) Lymph # [place] # Seg Neutrophils % Seg Neuts % (Manual) Lymphocytes % (Manual) Seg Neutrophils # Seg Neutrophils # Man Lymphocytes # (Manual) Monocytes # (Manual) D-Dimer Heparin Anti-Xa Level ABG pH POC ABG pCO2 POC ABG pO2 ABG pO2 ABG HCO3 ABG O2 Saturation ABG Base Excess ABG Hemoglobin ABG Oxyhemoglobin VBG pH Oxyhemoglobin Sodium Potassium Chloride Carbon Dioxide BUN Creatinine Glucose POC Glucose 123 H 115 H 203 H Lactic Acid Calcium AST Alkaline Phosphatase Lactate Dehydrogenase Total Creatine Kinase CK-MB (CK-2) C-Reactive Protein Total Protein Albumin Urine WBC (Auto) Urine Creatinine Urine Total Protein Coronavirus (PCR) Crossmatch 06/25/20 06/25/20 06/25/20 15:43 16:37 23:02 WBC RBC Hgb Hct MCHC RDW Lymph % (Auto) [place] % (Auto) Eos % (Auto) Lymph # [place] # Seg Neutrophils % Seg Neuts % (Manual) Lymphocytes % (Manual) Seg Neutrophils # Seg Neutrophils # Man Lymphocytes # (Manual) Monocytes # (Manual) D-Dimer Heparin Anti-Xa Level ABG pH POC ABG pCO2 POC ABG pO2 ABG pO2 ABG HCO3 ABG O2 Saturation ABG Base Excess ABG Hemoglobin ABG Oxyhemoglobin VBG pH Oxyhemoglobin Sodium Potassium Chloride Carbon Dioxide BUN 71 H Creatinine 1.8 H Glucose 170 H POC Glucose 191 H 126 H Lactic Acid Calcium 8.2 L AST Alkaline Phosphatase Lactate Dehydrogenase Total Creatine Kinase CK-MB (CK-2) C-Reactive Protein Total Protein Albumin Urine WBC (Auto) Urine Creatinine Urine Total Protein Coronavirus (PCR) Crossmatch 06/26/20 06/26/20 06/26/20 06:34 06:34 09:27 WBC RBC 2.41 L Hgb 6.9 L Hct 21.5 L MCHC RDW 16.7 H Lymph % (Auto) 10.9 L [place] % (Auto) 9.6 H Eos % (Auto) Lymph # 0.7 L [place] # Seg Neutrophils % 75.4 H Seg Neuts % (Manual) Lymphocytes % (Manual) Seg Neutrophils # Seg Neutrophils # Man Lymphocytes # (Manual) Monocytes # (Manual) D-Dimer Heparin Anti-Xa Level ABG pH POC ABG pCO2 POC ABG pO2 ABG pO2 ABG HCO3 ABG O2 Saturation ABG Base Excess ABG Hemoglobin ABG Oxyhemoglobin VBG pH Oxyhemoglobin Sodium Potassium Chloride Carbon Dioxide BUN 77 H Creatinine 1.9 H Glucose 190 H POC Glucose Lactic Acid Calcium AST Alkaline Phosphatase Lactate Dehydrogenase Total Creatine Kinase CK-MB (CK-2) C-Reactive Protein Total Protein Albumin Urine WBC (Auto) Urine Creatinine Urine Total Protein Coronavirus (PCR) Crossmatch See Detail 06/26/20 06/26/20 06/26/20 12:15 16:28 17:28 WBC RBC Hgb Hct MCHC RDW Lymph % (Auto) [place] % (Auto) Eos % (Auto) Lymph # [place] # Seg Neutrophils % Seg Neuts % (Manual) Lymphocytes % (Manual) Seg Neutrophils # Seg Neutrophils # Man Lymphocytes # (Manual) Monocytes # (Manual) D-Dimer Heparin Anti-Xa Level ABG pH POC ABG pCO2 POC ABG pO2 ABG pO2 ABG HCO3 ABG O2 Saturation ABG Base Excess ABG Hemoglobin ABG Oxyhemoglobin VBG pH Oxyhemoglobin Sodium Potassium Chloride Carbon Dioxide BUN Creatinine Glucose POC Glucose 187 H 149 H 189 H Lactic Acid Calcium AST Alkaline Phosphatase Lactate Dehydrogenase Total Creatine Kinase CK-MB (CK-2) C-Reactive Protein Total Protein Albumin Urine WBC (Auto) Urine Creatinine Urine Total Protein Coronavirus (PCR) Crossmatch 06/26/20 06/26/20 06/26/20 18:30 18:30 18:30 WBC RBC 2.87 L Hgb 8.2 L Hct 25.9 L MCHC RDW 17.8 H Lymph % (Auto) [place] % (Auto) Eos % (Auto) Lymph # [place] # Seg Neutrophils % Seg Neuts % (Manual) 83.0 H Lymphocytes % (Manual) 8.0 L Seg Neutrophils # Seg Neutrophils # Man Lymphocytes # (Manual) 0.6 L Monocytes # (Manual) D-Dimer Heparin Anti-Xa Level ABG pH POC ABG pCO2 POC ABG pO2 ABG pO2 ABG HCO3 ABG O2 Saturation ABG Base Excess ABG Hemoglobin ABG Oxyhemoglobin VBG pH Oxyhemoglobin Sodium Potassium Chloride Carbon Dioxide BUN 80 H Creatinine 2.1 H Glucose 260 H POC Glucose Lactic Acid 4.30 H* Calcium 8.3 L AST Alkaline Phosphatase Lactate Dehydrogenase Total Creatine Kinase CK-MB (CK-2) C-Reactive Protein Total Protein Albumin Urine WBC (Auto) Urine Creatinine Urine Total Protein Coronavirus (PCR) Crossmatch 06/26/20 06/27/20 06/27/20 18:50 01:00 04:29 WBC RBC Hgb Hct MCHC RDW Lymph % (Auto) [place] % (Auto) Eos % (Auto) Lymph # [place] # Seg Neutrophils % Seg Neuts % (Manual) Lymphocytes % (Manual) Seg Neutrophils # Seg Neutrophils # Man Lymphocytes # (Manual) Monocytes # (Manual) D-Dimer Heparin Anti-Xa Level ABG pH 7.296 L POC ABG pCO2 POC ABG pO2 ABG pO2 116.5 H 200.5 H ABG HCO3 28.4 H ABG O2 Saturation 99.3 H ABG Base Excess 3.7 H ABG Hemoglobin 5.6 L ABG Oxyhemoglobin VBG pH Oxyhemoglobin Sodium Potassium Chloride Carbon Dioxide BUN Creatinine Glucose POC Glucose 123 H Lactic Acid Calcium AST Alkaline Phosphatase Lactate Dehydrogenase Total Creatine Kinase CK-MB (CK-2) C-Reactive Protein Total Protein Albumin Urine WBC (Auto) Urine Creatinine Urine Total Protein Coronavirus (PCR) Crossmatch 06/27/20 06/27/20 06/27/20 05:00 05:00 05:00 WBC RBC 2.75 L Hgb 7.9 L Hct 24.3 L MCHC RDW 17.1 H Lymph % (Auto) 8.5 L [place] % (Auto) 12.6 H Eos % (Auto) Lymph # 0.7 L [place] # 1.0 H Seg Neutrophils % 77.5 H Seg Neuts % (Manual) Lymphocytes % (Manual) Seg Neutrophils # Seg Neutrophils # Man Lymphocytes # (Manual) Monocytes # (Manual) D-Dimer Heparin Anti-Xa Level ABG pH POC ABG pCO2 POC ABG pO2 ABG pO2 ABG HCO3 ABG O2 Saturation ABG Base Excess ABG Hemoglobin ABG Oxyhemoglobin VBG pH Oxyhemoglobin Sodium Potassium Chloride Carbon Dioxide BUN 80 H Creatinine 2.0 H Glucose 129 H POC Glucose Lactic Acid 0.60 L Calcium 7.9 L AST Alkaline Phosphatase Lactate Dehydrogenase Total Creatine Kinase CK-MB (CK-2) C-Reactive Protein Total Protein Albumin Urine WBC (Auto) Urine Creatinine Urine Total Protein Coronavirus (PCR) Crossmatch 06/27/20 06/27/20 06/27/20 05:23 13:46 17:25 WBC RBC Hgb Hct MCHC RDW Lymph % (Auto) [place] % (Auto) Eos % (Auto) Lymph # [place] # Seg Neutrophils % Seg Neuts % (Manual) Lymphocytes % (Manual) Seg Neutrophils # Seg Neutrophils # Man Lymphocytes # (Manual) Monocytes # (Manual) D-Dimer Heparin Anti-Xa Level ABG pH POC ABG pCO2 POC ABG pO2 ABG pO2 ABG HCO3 ABG O2 Saturation ABG Base Excess ABG Hemoglobin ABG Oxyhemoglobin VBG pH Oxyhemoglobin Sodium Potassium Chloride Carbon Dioxide BUN Creatinine Glucose POC Glucose 109 H 158 H 162 H Lactic Acid Calcium AST Alkaline Phosphatase Lactate Dehydrogenase Total Creatine Kinase CK-MB (CK-2) C-Reactive Protein Total Protein Albumin Urine WBC (Auto) Urine Creatinine Urine Total Protein Coronavirus (PCR) Crossmatch 06/27/20 06/27/20 06/28/20 18:43 23:46 04:05 WBC RBC Hgb 7.7 L Hct 22.1 L MCHC RDW Lymph % (Auto) [place] % (Auto) Eos % (Auto) Lymph # [place] # Seg Neutrophils % Seg Neuts % (Manual) Lymphocytes % (Manual) Seg Neutrophils # Seg Neutrophils # Man Lymphocytes # (Manual) Monocytes # (Manual) D-Dimer Heparin Anti-Xa Level ABG pH POC ABG pCO2 POC ABG pO2 ABG pO2 102.7 H ABG HCO3 28.7 H ABG O2 Saturation ABG Base Excess 3.7 H ABG Hemoglobin ABG Oxyhemoglobin VBG pH Oxyhemoglobin Sodium Potassium Chloride Carbon Dioxide BUN Creatinine Glucose POC Glucose 142 H Lactic Acid Calcium AST Alkaline Phosphatase Lactate Dehydrogenase Total Creatine Kinase CK-MB (CK-2) C-Reactive Protein Total Protein Albumin Urine WBC (Auto) Urine Creatinine Urine Total Protein Coronavirus (PCR) Crossmatch 06/28/20 06/28/20 06/28/20 09:47 09:47 12:02 WBC RBC 2.53 L Hgb 7.4 L Hct 22.2 L MCHC RDW 16.8 H Lymph % (Auto) [place] % (Auto) 13.5 H Eos % (Auto) Lymph # 1.1 L [place] # 1.0 H Seg Neutrophils % Seg Neuts % (Manual) Lymphocytes % (Manual) Seg Neutrophils # Seg Neutrophils # Man Lymphocytes # (Manual) Monocytes # (Manual) D-Dimer Heparin Anti-Xa Level ABG pH POC ABG pCO2 POC ABG pO2 ABG pO2 ABG HCO3 ABG O2 Saturation ABG Base Excess ABG Hemoglobin ABG Oxyhemoglobin VBG pH Oxyhemoglobin Sodium Potassium Chloride Carbon Dioxide BUN 80 H Creatinine 1.5 H Glucose 139 H POC Glucose 169 H Lactic Acid Calcium 7.9 L AST Alkaline Phosphatase Lactate Dehydrogenase Total Creatine Kinase CK-MB (CK-2) C-Reactive Protein Total Protein 5.0 L Albumin 2.1 L Urine WBC (Auto) Urine Creatinine Urine Total Protein Coronavirus (PCR) Crossmatch 06/28/20 06/28/20 06/28/20 12:30 12:30 17:24 WBC RBC 2.38 L Hgb 7.3 L Hct 20.9 L MCHC 35 H RDW 16.7 H Lymph % (Auto) [place] % (Auto) Eos % (Auto) Lymph # [place] # Seg Neutrophils % Seg Neuts % (Manual) Lymphocytes % (Manual) Seg Neutrophils # Seg Neutrophils # Man Lymphocytes # (Manual) Monocytes # (Manual) D-Dimer Heparin Anti-Xa Level ABG pH POC ABG pCO2 POC ABG pO2 ABG pO2 ABG HCO3 ABG O2 Saturation ABG Base Excess ABG Hemoglobin ABG Oxyhemoglobin VBG pH Oxyhemoglobin Sodium Potassium Chloride Carbon Dioxide BUN 74 H Creatinine 1.5 H Glucose 143 H POC Glucose 173 H Lactic Acid Calcium 7.5 L AST Alkaline Phosphatase Lactate Dehydrogenase Total Creatine Kinase CK-MB (CK-2) C-Reactive Protein Total Protein Albumin Urine WBC (Auto) Urine Creatinine Urine Total Protein Coronavirus (PCR) Crossmatch 06/29/20 06/29/20 06/29/20 00:02 03:54 04:38 WBC RBC 2.55 L Hgb 7.3 L Hct 22.4 L MCHC RDW 16.4 H Lymph % (Auto) 13.3 L [place] % (Auto) 12.5 H Eos % (Auto) Lymph # 1.1 L [place] # 1.0 H Seg Neutrophils % Seg Neuts % (Manual) Lymphocytes % (Manual) Seg Neutrophils # Seg Neutrophils # Man Lymphocytes # (Manual) Monocytes # (Manual) D-Dimer Heparin Anti-Xa Level ABG pH POC ABG pCO2 POC ABG pO2 ABG pO2 ABG HCO3 26.9 H ABG O2 Saturation ABG Base Excess ABG Hemoglobin 6.9 L ABG Oxyhemoglobin VBG pH Oxyhemoglobin Sodium Potassium Chloride Carbon Dioxide BUN Creatinine Glucose POC Glucose 142 H Lactic Acid Calcium AST Alkaline Phosphatase Lactate Dehydrogenase Total Creatine Kinase CK-MB (CK-2) C-Reactive Protein Total Protein Albumin Urine WBC (Auto) Urine Creatinine Urine Total Protein Coronavirus (PCR) Crossmatch 06/29/20 06/29/20 06/29/20 04:38 05:38 12:25 WBC RBC Hgb Hct MCHC RDW Lymph % (Auto) [place] % (Auto) Eos % (Auto) Lymph # [place] # Seg Neutrophils % Seg Neuts % (Manual) Lymphocytes % (Manual) Seg Neutrophils # Seg Neutrophils # Man Lymphocytes # (Manual) Monocytes # (Manual) D-Dimer Heparin Anti-Xa Level ABG pH POC ABG pCO2 POC ABG pO2 ABG pO2 ABG HCO3 ABG O2 Saturation ABG Base Excess ABG Hemoglobin ABG Oxyhemoglobin VBG pH Oxyhemoglobin Sodium Potassium Chloride 107.8 H Carbon Dioxide BUN 72 H Creatinine 1.4 H Glucose 127 H POC Glucose 122 H 138 H Lactic Acid Calcium 7.4 L AST Alkaline Phosphatase Lactate Dehydrogenase Total Creatine Kinase CK-MB (CK-2) C-Reactive Protein Total Protein Albumin Urine WBC (Auto) Urine Creatinine Urine Total Protein Coronavirus (PCR) Crossmatch Chest x-ray: image reviewed (Bilateral alveolar infiltrates with R pleural effusion) Allied health notes reviewed: RT
[2020-06-29] MEDS ORDERED: FUROSEMIDE 40 MG/4 ML INJ IV ONE (13:49)
--- NOTE | 2020-06-29 14:59 | XRay Report ---
CHEST 1 VIEW INDICATION: respiratory failure, ETT placement COMPARISON: 06/26/2020 FINDINGS: Support devices: Endotracheal tube has been placed and is in good position, 1 to 2 cm above the ariane a. Right jugular line position is unchanged. Dobbhoff tube is in the stomach. Heart: Within normal limits and unchanged Lungs/Pleura: Pleural effusions have resolved, and I see no acute pulmonary disease. IMPRESSION: 1. Resolution of bilateral pleural effusions. No acute disease. Signer Name: Kee Llanes MD Signed: 06/29/2020 2:55 PM Workstation Name: [id number]
[2020-06-29 16:24] LABS: C-Reactive Protein 3.6 mg/dL (0.00-1.30)
--- NOTE | 2020-06-29 16:49 | Progress Note ---
Assessment and Plan --Febrile illness Start empiric antibiotics with vancomycin and Rocephin Panculture, reconsult ID -- Acute hypoxemic respiratory failure From COVID-19 viral infection, intubated on admission extubated on 06/12/20 then placed on high flow o2 patient developed another respiratory arrest on 06/26 - reintubated CC following -- s/p Cardiac arrest on admission and on 06/26 Cardiology team on board Conservative management as per cardiology --COVID-19 positive 05/28/2020 Completed treatment, ID following --Superficial left cephalic vein DVT/elevated D-dimers[COVID 19] Patient is on heparin drip from 05/29/20 D-dimers improved [phone] s/p heparin drip, Discussed with ID, treated with Eliquis 5 mg twice a day for 1 week[per ID] stop date 06/26/2020 -- Acute metabolic encephalopathy, POA likely from sepsis and s/p cardiac arrest with possible anoxic injury -- Acute renal failure: likely ATN Cr slowly improving Avoid ACEI and other nephrotoxic medications Nephrology following -- Coronavirus infection with b/l PNA Completed remdesivir on 06/02 Completed dexamethasone - Last dose 06/07 ID recs appreciated. --Klebsiella pneumonia: Completed antibiotics --CHF (congestive heart failure) Cardiology following. Ef 45% -- Coffee ground emesis -Stress ulcers Possible stress ulcers, On PPI H/H again dropped - transfuse GI evaluation -- Hypertension; moderate control Continue amlodipine, coreg, clonidine and hydralazine --Mild LFT elevation: likely from COVID-19. cont to monitor -- DVT prophylaxis Eliquis, SCD to bilateral lower extremities while in bed -- Advance care planning Patient is critically ill with multiple medical problems Poor prognosis, family updated and requesting full code The high probability of a clinically significant, sudden or life threatening deterioration of the [CVS, renal, respiratory, ONLINE PROJECT [employer]NAGER] system(s) required my full and direct attention, intervention and personal management. The aggregate critical care time was [34] minutes. This time is in addition to time spent performing reported procedures but includes the following: [x] Data Review and interpretation [x] Patient assessment and monitoring of vital signs [x] Documentation [x] Medication orders and management Brief history: 64 YO Female with a medical history of HTN, Diastolic CHF, Pulmonary HTN, DM, Obesity Hypoventilation Syndrome presents to ED for evaluation of shortness of breath. As per staff, the EMS was notified for difficulty breathing. Upon arrival to the patient's home the patient was found to be in distress and was subsequently transported to [facility] for further evaluation and care. In route to [facility] the patient developed cardiac arrest and was treated in accordance with ACLS protocol with return of ROSC. Patient was seen and evaluated in the emergency department and was intubated and placed on ventilatory support. Patient admitted to ICU. Critical care team consulted in ED. She was found to have COVID-19 infection and was started on steroids and remdesivir. ID was consulted. Cardiology was consulted for her systolic heart failure and cardiac arrest. Patient completed treatment for COVID-19, then develop superimposed bacterial pneumonia with Klebsiella. She is now extubated, but remains confused and requiring high flow O2 and intermittent BiPAP. 06/01. Patient remains intubated and on ventilatory support today. Patient has multiple organ system failure and has poor prognosis. Patient did not experience significant medical decompensation overnight but no improvement with current therapy. 06/02. Remains intubated. her BP is elevated. Started on nicardipine drip. Cardiology following. 06/03-06/04. BP is better. Hb stable. Completed remdesivir. ID , Cardiology and Critical care team on board 06/05. Bump in creatinine. I/O reviewed. Nephrology consulted. 06/06. Has slight improvement in renal function. Nephrology on board. On SBT today. Vitals stable. 06/07. Stable renal function. No need for HD as per nephrology. She is making urine. Plan for SBT. 06/08. Off sedation and very lethargic. Her BUN is going up - effect of steroids vs GI bleed. Her hemoglobin remains stable. Will check stool guaiac. Nephrology is following. WBC bumped to 16 today. 06/09: remains intubated, wbc trended up, Cr slightly trending down. cont TF, wean off vent as tolerated. 06/10: Cr trending down, cont to wean off vent as tolerated. 06/10; Cr much improved, cont iv fluid, tolerating tube feeding. stopped vac, iv cefepime for total 10 days. 06/11; creatinine 1.5 today, sodium level has normalized. Continue tube feeding, continue cefepime for 10 days. Continue to wean off as tolerated. 06/12: planned for extubation today 06/13: extubated yesterday, now on Bipap 06/14: patient on Bipap, remains on TF, restraint. cont to follow clinically 06/15: patient on high flow O2,remains on TF, restraint. cont to follow clinically. transfer to [facility] 06/16: Patient remains on high flow O2, intermittently on BiPAP. Tolerating tube feeding. cont to monitor at [facility] 06/17; patient on BiPAP. Remains confused and on tube feeding. Continue to monitor at [facility]. Wean off O2 as tolerated. 06/18; patient feels slightly better on high flow oxygen, minimally communicative, stable to be transferred out of [facility] to telemetry 06/20; remains hypoxic on high flow oxygen, today noncommunicative sleeping all the time, vital signs noted 06/21; more alert and awake confused at times and pulling, restraint for safety, on high flow oxygen We will request physical therapy once more stable 06/22; PT unable to assess due to safety concerns, remains hypoxic on high flow oxygen, BiPAP at night. minimally communicative 06/23: Remains on high flow O2, order for speech eval, continue tube feeding. Creatinine noted to be elevated today -2.4, increase IV fluid hydration. 06/24: Kidney function started worsening 06/23 -likely from hypotension. patient had episodes of hypotension on 06/22. Kidney function is unchanged from yesterday. No further episodes of hypotension. Follow-up electrolytes and renal function. patient remains on high flow O2 06/25: patient on 15L o2 with n/c. on Bipap at night. follow renal function and follow bmp . Placement not possible as patient unfunded. wean off o2 as tolerated. 06/26: hb 6.9 today, transfuse one unit. wean off from O2 as tolerated. check stool for occult blood. consult GI if stool is positive for blood. 06/27; Code blue called yesterday. ACLS initiated, Pt found to have Asystolic Arrest with eventual return of perfusing cardiac rhythm. patient reintubated during code, transferred to ICU, called family and updated 06/28: Patient is spiking fever, started on empiric antibiotic, ordered blood urine and sputum culture. We will reconsult ID. Discussed with patient's son in the evening. Family wants to continue full CODE STATUS. Discussed with critical care attending and RN in length. 06/29: Repeat COVID-19 test is positive. Patient remains on ventilator, continue tube feeding diet. Renal function stable, H&H stable. GI recommendation appreciated -no plan for endoscopy now as there is no active bleeding. Subjective Date of service: 06/29/20 Principal diagnosis: Coffee Ground Emesis Interval history: Patient seen and examined Vitals reviewed, intubated Tolerating tube feeding Discussed with RN at the bedside Objective - Exam Narrative Exam: General appearance: Present: mild distress, well-nourished, obese (Morbidly ob naresh), other (intubated) - EENT Eyes: No congestion or icterus - Neck Neck: Present: supple, normal ROM - Respiratory Respiratory effort: normal Respiratory: bilateral: diminished, rhonchi, negative: rales, wheezing - Cardiovascular Rhythm: regular Heart Sounds: Present: S1 & S2 - Extremities Extremities: no ischemia, No edema - Abdominal General gastrointestinal: soft, non-tender, non-distended, normal bowel sounds - Integumentary Integumentary: Present: clear, warm - Psychiatric Psychiatric: other (intubated) - Neurologic Neurologic: other (intubated) - Constitutional Vitals: Vital Signs - 12hr 06/29/20 06/29/20 06/29/20 05:00 05:16 05:30 Pulse Rate 79 78 80 Pulse Rate [ From Monitor] Respiratory 20 17 14 Rate Respiratory Rate [Left Upper Hand] Blood Pressure 162/64 162/64 162/64 O2 Sat by Pulse 98 98 97 Oximetry 06/29/20 06/29/20 06/29/20 05:46 06:00 06:16 Pulse Rate 80 80 77 Pulse Rate [ From Monitor] Respiratory 15 22 24 Rate Respiratory Rate [Left Upper Hand] Blood Pressure 169/63 169/63 144/51 O2 Sat by Pulse 97 98 98 Oximetry 06/29/20 06/29/20 06/29/20 06:30 06:38 06:46 Pulse Rate 73 74 Pulse Rate [ From Monitor] Respiratory 13 11 L Rate Respiratory Rate [Left Upper Hand] Blood Pressure 144/51 144/51 144/51 O2 Sat by Pulse 98 98 Oximetry 06/29/20 06/29/20 06/29/20 07:00 07:16 07:30 Pulse Rate 74 76 75 Pulse Rate [ From Monitor] Respiratory 17 17 16 Rate Respiratory Rate [Left Upper Hand] Blood Pressure 144/51 125/42 125/42 O2 Sat by Pulse 98 98 98 Oximetry 06/29/20 06/29/20 06/29/20 07:39 08:00 08:01 Pulse Rate 80 76 Pulse Rate [ 80 From Monitor] Respiratory 20 12 Rate Respiratory Rate [Left Upper Hand] Blood Pressure 125/42 141/49 O2 Sat by Pulse 99 99 Oximetry 06/29/20 06/29/20 06/29/20 08:30 09:00 09:30 Pulse Rate 71 70 70 Pulse Rate [ From Monitor] Respiratory 19 17 19 Rate Respiratory Rate [Left Upper Hand] Blood Pressure 136/47 140/49 140/49 O2 Sat by Pulse 99 99 100 Oximetry 06/29/20 06/29/20 06/29/20 09:42 09:43 10:00 Pulse Rate 70 70 75 Pulse Rate [ From Monitor] Respiratory 19 Rate Respiratory 20 Rate [Left Upper Hand] Blood Pressure 144/53 144/53 144/53 O2 Sat by Pulse 94 Oximetry 06/29/20 06/29/20 06/29/20 10:30 11:00 11:35 Pulse Rate 70 68 73 Pulse Rate [ From Monitor] Respiratory 17 12 16 Rate Respiratory Rate [Left Upper Hand] Blood Pressure 154/44 154/44 140/59 O2 Sat by Pulse 98 99 99 Oximetry 06/29/20 06/29/20 06/29/20 12:00 13:00 14:00 Pulse Rate 69 75 75 Pulse Rate [ 72 From Monitor] Respiratory 14 14 25 H Rate Respiratory Rate [Left Upper Hand] Blood Pressure 133/55 140/59 143/51 O2 Sat by Pulse 99 99 96 Oximetry 06/29/20 06/29/20 15:00 16:00 Pulse Rate 74 74 Pulse Rate [ 75 From Monitor] Respiratory 15 19 Rate Respiratory Rate [Left Upper Hand] Blood Pressure 133/82 O2 Sat by Pulse 97 97 Oximetry - Labs CBC & Chem 7: 06/30/20 04:10 06/30/20 04:10 Labs: Abnormal lab results 06/28/20 06/28/20 06/29/20 Range/Units 12:02 17:24 00:02 RBC (3.65-5.03) M/mm3 Hgb (10.1-14.3) gm/dl Hct (30.3-42.9) % RDW (13.2-15.2) % Lymph % (Auto) (13.4-35.0) % [place] % (Auto) (0.0-7.3) % Lymph # (1.2-5.4) K/mm3 [place] # (0.0-0.8) K/mm3 D-Dimer (0-234) ng/mlDDU ABG HCO3 (20.0-26.0) mmol/L ABG Hemoglobin (12.0-16.0) gm/dl Chloride (98-107) mmol/L BUN (7-17) mg/dL Creatinine (0.6-1.2) mg/dL Glucose (65-100) mg/dL POC Glucose 169 H 173 H 142 H (70-105) Calcium (8.4-10.2) mg/dL Ferritin (10.0-200.0) ng/mL Lactate Dehydrogenase (91-180) units/L C-Reactive Protein (0.00-1.30) mg/dL Coronavirus (PCR) (Negative) 06/29/20 06/29/20 06/29/20 Range/Units 03:54 04:38 04:38 RBC 2.55 L (3.65-5.03) M/mm3 Hgb 7.3 L (10.1-14.3) gm/dl Hct 22.4 L (30.3-42.9) % RDW 16.4 H (13.2-15.2) % Lymph % (Auto) 13.3 L (13.4-35.0) % [place] % (Auto) 12.5 H (0.0-7.3) % Lymph # 1.1 L (1.2-5.4) K/mm3 [place] # 1.0 H (0.0-0.8) K/mm3 D-Dimer (0-234) ng/mlDDU ABG HCO3 26.9 H (20.0-26.0) mmol/L ABG Hemoglobin 6.9 L (12.0-16.0) gm/dl Chloride 107.8 H (98-107) mmol/L BUN 72 H (7-17) mg/dL Creatinine 1.4 H (0.6-1.2) mg/dL Glucose 127 H (65-100) mg/dL POC Glucose (70-105) Calcium 7.4 L (8.4-10.2) mg/dL Ferritin (10.0-200.0) ng/mL Lactate Dehydrogenase (91-180) units/L C-Reactive Protein (0.00-1.30) mg/dL Coronavirus (PCR) (Negative) 06/29/20 06/29/20 06/29/20 Range/Units 05:38 12:25 14:45 RBC (3.65-5.03) M/mm3 Hgb (10.1-14.3) gm/dl Hct (30.3-42.9) % RDW (13.2-15.2) % Lymph % (Auto) (13.4-35.0) % [place] % (Auto) (0.0-7.3) % Lymph # (1.2-5.4) K/mm3 [place] # (0.0-0.8) K/mm3 D-Dimer 2310.15 H (0-234) ng/mlDDU ABG HCO3 (20.0-26.0) mmol/L ABG Hemoglobin (12.0-16.0) gm/dl Chloride (98-107) mmol/L BUN (7-17) mg/dL Creatinine (0.6-1.2) mg/dL Glucose (65-100) mg/dL POC Glucose 122 H 138 H (70-105) Calcium (8.4-10.2) mg/dL Ferritin (10.0-200.0) ng/mL Lactate Dehydrogenase (91-180) units/L C-Reactive Protein (0.00-1.30) mg/dL Coronavirus (PCR) (Negative) 06/29/20 06/29/20 06/29/20 Range/Units 14:45 14:45 Unknown RBC (3.65-5.03) M/mm3 Hgb (10.1-14.3) gm/dl Hct (30.3-42.9) % RDW (13.2-15.2) % Lymph % (Auto) (13.4-35.0) % [place] % (Auto) (0.0-7.3) % Lymph # (1.2-5.4) K/mm3 [place] # (0.0-0.8) K/mm3 D-Dimer (0-234) ng/mlDDU ABG HCO3 (20.0-26.0) mmol/L ABG Hemoglobin (12.0-16.0) gm/dl Chloride (98-107) mmol/L BUN (7-17) mg/dL Creatinine (0.6-1.2) mg/dL Glucose (65-100) mg/dL POC Glucose (70-105) Calcium (8.4-10.2) mg/dL Ferritin 223.6 H (10.0-200.0) ng/mL Lactate Dehydrogenase 367 H (91-180) units/L C-Reactive Protein 3.60 H (0.00-1.30) mg/dL Coronavirus (PCR) Positive A (Negative)
[2020-06-29] MEDS: INSULIN GLARGINE 100 UNITS/ML SUB-Q SCH (21:21)
[2020-06-30 04:56] LABS: Basophils # (Auto) 0.1 K/mm3 (0.0-0.1); Basophils % (Auto) 0.6 % (0.0-1.8); Eosinophils # (Auto) 0.3 K/mm3 (0.0-0.4); Eosinophils % (Auto) 3.9 % (0.0-4.3); Hematocrit 21.5 % (30.3-42.9); Hemoglobin 7.1 gm/dl (10.1-14.3); Lymphocytes # (Auto) 0.9 K/mm3 (1.2-5.4); Mean Corpuscular HGB Conc 33 % (30-34); Mean Corpuscular Volume 88 fl (79-97); Monocytes # (Auto) 0.9 K/mm3 (0.0-0.8); Monocytes % (Auto) 10.8 % (0.0-7.3); Platelet Count 325 K/mm3 (140-440); Red Blood Count 2.44 M/mm3 (3.65-5.03); Red Cell Distribution Width 16.6 % (13.2-15.2)
[2020-06-30 05:10] LABS: Calcium 7.8 mg/dL (8.4-10.2)
[2020-06-30] MEDS: CEFEPIME/NS 2 GM/100 ML 2 GM/100 ML BAG IV SCH ×3 (07:00→21:29)
[2020-06-30] MEDS: hydrALAZINE 25 MG TAB PO SCH ×3 (07:00→21:31)
[2020-06-30] MEDS: INSULIN LISPRO 100 UNIT/ML VIAL 3 mL SUB-Q SCH ×8 (07:24→23:35)
[2020-06-30] MEDS: METOCLOPRAMIDE 10 MG/2 ML INJ IV SCH ×4 (09:13→20:51)
[2020-06-30] MEDS: cloNIDine 0.2 MG TAB PO SCH ×2 (09:14→21:30)
[2020-06-30] MEDS: amLODIPine 10 MG TAB PO SCH (09:14)
[2020-06-30] MEDS: levETIRAcetam 500 MG/5 ML ORAL LIQD PO SCH ×2 (09:14→21:31)
[2020-06-30] MEDS: carvediloL 12.5 MG TAB PO SCH ×2 (09:14→21:31)
[2020-06-30] MEDS: GLYCOPYRROLATE 2 MG TAB PO SCH ×3 (09:14→20:51)
[2020-06-30] MEDS: LANSOPRAZOLE 30 MG SOLUTAB FEEDTUBE SCH ×2 (09:14→21:31)
[2020-06-30] MEDS: MAGIC MOUTHWASH 30ML PO SCH ×3 (09:15→20:50)
[2020-06-30] MEDS: SENNOSIDES ORAL LIQD 8.8 MG/5 ML ORAL LIQD FEEDTUBE SCH ×3 (09:15→21:32)
[2020-06-30] MEDS: VANCOMYCIN 2,000 MG in SODIUM CHLORIDE 0.9% 500 ML 500 ML IV SCH (10:09)
--- NOTE | 2020-06-30 10:57 | Progress Note ---
Assessment and Plan Cultures: Coronavirus PCR: Positive 05/28/2020 blood culture: no growth 05/28/2020 tracheal aspirate: Usual respiratory bobo 05/28/2020 urine culture: No growth 06/03/2020 urine culture: No growth 06/09/2020 tracheal aspirate Klebsiella pneumoniae 06/28/2020 sputum culture positive for gram-negative rods 06/28/2020 blood cultures no growth today A/P: 64-year-old female with hypertension, diastolic CHF, pulmonary hypertension, diabetes, obesity hypoventilation syndrome was admitted to the emergency room after she called EMS due to difficulty breathing. On the way to the hospital, patient developed cardiac arrest and was treated as per ACLS protocol: #New sepsis: After asystolic cardiac arrest on 06/26/2028. Fever trending down.. ? Healthcare associated pneumonia #Bilateral pneumonia: Secondary to COVID-19. Completed 5 days of IV Remdesivir 06/02/2020. ? Healthcare associated pneumonia, repeat sputum growing gram- negative rods #Acute hypoxic respiratory failure: On mechanical ventilation. Minimal vent settings. #Status post PEA arrest, encephalopathy #HF: EF 45-50% #Mild LFT elevation: likely from COVID-19. #AVANI: Improving. #Severe constipation: Status post manual disimpaction Recs: -Continue cefepime 2 g IV every 8 hours for now -Continue vancomycin with PK consult -Obtain MRSA PCR, and stop vancomycin if negative -pending -Follow-up with blood and sputum culture result Very poor prognosis MD [facility] C: [phone] O: [phone] F: [phone] Subjective Date of service: 06/30/20 Principal diagnosis: Coffee Ground Emesis Interval history: Remains intubated on the ventilator, on CPAP FiO2 30%, T-max 100.6, fever trending down. Objective - Exam Narrative Exam: Physical Exam (reviewed in chart due to PPE conservation and minimize risk of transmission) Constitutional: limited due to PPE conservation strategy Head, Ears, Nose: limited due to PPE conservation strategy Eyes: limited due to PPE conservation strategy Neck: intubated limited due to PPE conservation strategy Oral: limited due to PPE conservation strategy Cardiovascular: limited due to PPE conservation strategy Respiratory: limited due to PPE conservation strategy GI: limited due to PPE conservation strategy Musculoskeletal: limited due to PPE conservation strategy Skin: limited due to PPE conservation strategy Hem/Lymphatic: limited due to PPE conservation strategy Psych: limited due to PPE conservation strategy Neurological: limited due to PPE conservation strategy - Constitutional Vitals: Vital Signs Temp Pulse Resp BP Pulse Ox 99.6 F 77 22 148/68 97 06/30/20 04:00 06/30/20 09:14 06/30/20 08:16 06/30/20 09:14 06/30/20 08:16 Temperature -Last 24 Hours Temperature 99.6 F Temperature 99.8 F Temperature 100.6 F - Labs CBC & Chem 7: 06/30/20 04:10 06/30/20 04:10 Labs: Abnormal lab results 06/29/20 06/29/20 06/29/20 Range/Units 12:25 14:45 14:45 RBC (3.65-5.03) M/mm3 Hgb (10.1-14.3) gm/dl Hct (30.3-42.9) % RDW (13.2-15.2) % Lymph % (Auto) (13.4-35.0) % [place] % (Auto) (0.0-7.3) % Lymph # (1.2-5.4) K/mm3 [place] # (0.0-0.8) K/mm3 Seg Neutrophils % (40.0-70.0) % D-Dimer 2310.15 H (0-234) ng/mlDDU Chloride (98-107) mmol/L BUN (7-17) mg/dL Creatinine (0.6-1.2) mg/dL Glucose (65-100) mg/dL POC Glucose 138 H (70-105) Calcium (8.4-10.2) mg/dL Ferritin (10.0-200.0) ng/mL Lactate Dehydrogenase 367 H (91-180) units/L C-Reactive Protein 3.60 H (0.00-1.30) mg/dL Coronavirus (PCR) (Negative) 06/29/20 06/29/20 06/29/20 Range/Units 14:45 18:27 23:35 RBC (3.65-5.03) M/mm3 Hgb (10.1-14.3) gm/dl Hct (30.3-42.9) % RDW (13.2-15.2) % Lymph % (Auto) (13.4-35.0) % [place] % (Auto) (0.0-7.3) % Lymph # (1.2-5.4) K/mm3 [place] # (0.0-0.8) K/mm3 Seg Neutrophils % (40.0-70.0) % D-Dimer (0-234) ng/mlDDU Chloride (98-107) mmol/L BUN (7-17) mg/dL Creatinine (0.6-1.2) mg/dL Glucose (65-100) mg/dL POC Glucose 112 H 140 H (70-105) Calcium (8.4-10.2) mg/dL Ferritin 223.6 H (10.0-200.0) ng/mL Lactate Dehydrogenase (91-180) units/L C-Reactive Protein (0.00-1.30) mg/dL Coronavirus (PCR) (Negative) 06/29/20 06/30/20 06/30/20 Range/Units Unknown 04:10 04:10 RBC 2.44 L (3.65-5.03) M/mm3 Hgb 7.1 L (10.1-14.3) gm/dl Hct 21.5 L (30.3-42.9) % RDW 16.6 H (13.2-15.2) % Lymph % (Auto) 11.0 L (13.4-35.0) % [place] % (Auto) 10.8 H (0.0-7.3) % Lymph # 0.9 L (1.2-5.4) K/mm3 [place] # 0.9 H (0.0-0.8) K/mm3 Seg Neutrophils % 73.7 H (40.0-70.0) % D-Dimer (0-234) ng/mlDDU Chloride 109.1 H (98-107) mmol/L BUN 74 H (7-17) mg/dL Creatinine 1.3 H (0.6-1.2) mg/dL Glucose 191 H (65-100) mg/dL POC Glucose (70-105) Calcium 7.8 L (8.4-10.2) mg/dL Ferritin (10.0-200.0) ng/mL Lactate Dehydrogenase (91-180) units/L C-Reactive Protein (0.00-1.30) mg/dL Coronavirus (PCR) Positive A (Negative) 06/30/20 Range/Units 06:09 RBC (3.65-5.03) M/mm3 Hgb (10.1-14.3) gm/dl Hct (30.3-42.9) % RDW (13.2-15.2) % Lymph % (Auto) (13.4-35.0) % [place] % (Auto) (0.0-7.3) % Lymph # (1.2-5.4) K/mm3 [place] # (0.0-0.8) K/mm3 Seg Neutrophils % (40.0-70.0) % D-Dimer (0-234) ng/mlDDU Chloride (98-107) mmol/L BUN (7-17) mg/dL Creatinine (0.6-1.2) mg/dL Glucose (65-100) mg/dL POC Glucose 187 H (70-105) Calcium (8.4-10.2) mg/dL Ferritin (10.0-200.0) ng/mL Lactate Dehydrogenase (91-180) units/L C-Reactive Protein (0.00-1.30) mg/dL Coronavirus (PCR) (Negative)
--- NOTE | 2020-06-30 11:11 | Progress Note ---
Assessment and Plan Cardiopulmoanry arrest 06/26/2020 with ROSC Acute hypoxemic respiratory failure , extubated now re-intubated Anemia s/p PRBC Severe COVID infection Multifocal pneumonia Morbid obesity Acute toxic metabolic encephalopathy AVANI secondary to COVID/vasomotor nephropathy Bilateral pulmonary edema. Bilateral pleural effusions. History of congestive heart failure. History of pulmonary hypertension. History of hypertension. Diabetes. Obesity hypoventilation syndrome. Oropharyngeal dysphagia. Follow blood cultures, urine cultures and tracheal aspirate for cultures results Continue Cefepime, Vancomycin Fluid conservative measures as tolerated by renal function and hemodynamcis VTE prophylaxis - start VTE prophylaxis dosing Supportive transfusions as indicated SBTs as tolerated Place midline line and discontinue RIJ central venous access Free water flushes for hypernatremia - VAP bundle addressed -Aspiration precautions, HOB >40 -lung protective strategies-ARDS. net - continue bronchodilators with pulmonary hygiene per RT - wean per pulmonary driven protocols otherwise - continue to avoid benzodiazepines, reduce the possibility of delirium - prn analgesia per CPOT score - Continue to wean supplemental oxygen for target O2 sats > 92% -Continue to hold sedation, if needed intermittent dosing - conservative fluid management measures as tolerated by hemodynamics and renal function - Bronchodilators with pulmonary hygiene per RT - Accuchecks with glycemic control per SSI (While critically ill target blood glucose of 140-180 mg/dL; avoid hypoglycemia) - Maintenance of sleep-wake cycle, avoid delirium - Avoid nephrotoxins, closely monitor renal function, dose all medications for renal function - Aspiration precautions, HOB >40 - Stress ulcer prophylaxis -Famotidine - Mobility protocol, off loading and skin assessment for pressure ulcer prevention - Monitor hemodynamics closely - Supportive transfusions as indicated to keep HgB >7g/dL COVID SPECIFIC INTERVENTIONS -Airborne, contact isolation for COVID per facility protocols - s/p Remdesivir -IV steroids-Dexamethasone -Trend d-dimer,and other inflammatory markers per facility protocol -Convalescent plasma therapy per facility protocol -Continue all supportive care Discussed with the ICU team-RTRN, Life threatening condition- Cardiopulmaonry arrest with ROSC, Sepsis ;COVID 19 acute hypoxemic respiratory failure on MVS Mortality/Morbidity- High Complexity of medical decision making- High CONDITION: CRITICAL PROGNOSIS: GUARDED CODE STATUS: FULL CODE The high probability of a clinically significant, sudden or life-threatening deterioration of the [respiratory & neurology, renal ] system(s) required my full and direct attention, intervention and personal management. The aggregate critical care time was [34] minutes without overlap. Time includes spent on; [x] Data Review and interpretation [x] Patient assessment and monitoring of vital signs [x] Documentation [x] Medication orders and management Subjective Date of service: 06/30/20 Principal diagnosis: Coffee Ground Emesis Interval history: Patient is seen today for: Ac hypoxemic resp failure; Coronavirus-19 infection; pneumonia; Pulmonary edema; Bilateral pleural effusions; CHF; Morbid obesity; pulmonary hypertension; OHS; DM II Seen and examined at bedside; 24hour events reviewed; nursing and respiratory care staff consulted; Vitals, labs,medications, chart reviewed. On going intermittent fevers overnight. Remains orally intubated to MVS, but on low vent settings. Has a cough and gag reflex, grimaces to pain. Tolerated PSV 07/13 yesterday Objective Vital Signs - 12hr 06/29/20 06/30/20 06/30/20 23:30 00:00 01:00 Temperature 99.8 F H Pulse Rate 75 74 73 Respiratory 5 L 20 19 Rate Blood Pressure 143/78 153/59 150/59 O2 Sat by Pulse 98 98 98 Oximetry 06/30/20 06/30/20 06/30/20 02:00 03:00 03:20 Temperature Pulse Rate 75 76 75 Respiratory 18 17 2 L Rate Blood Pressure 153/91 148/82 153/91 O2 Sat by Pulse 97 97 97 Oximetry 06/30/20 06/30/20 06/30/20 04:00 05:00 06:00 Temperature 99.6 F Pulse Rate 74 70 71 Respiratory 21 17 20 Rate Blood Pressure 144/58 147/58 145/62 O2 Sat by Pulse 99 99 98 Oximetry 06/30/20 06/30/20 08:16 09:14 Temperature Pulse Rate 75 77 Respiratory 22 Rate Blood Pressure 157/61 148/68 O2 Sat by Pulse 97 Oximetry Constitutional: no acute distress, other (elderly looking obese female orally intubated, ETT at 7.5, 22 cm at the lip) Eyes: non-icteric ENT: oropharynx dry Neck: supple, no lymphadenopathy, no JVD, other (large neck circumference) Effort: normal Ascultation: Bilateral: clear, diminished breath sounds, rales, rhonchi (scant) Percussion: Bilateral: not dull Cardiovascular: regular rate and rhythm, other (S1,S2) Gastrointestinal: normoactive bowel sounds, soft, non-tender, non-distended Integumentary: normal Extremities: no cyanosis, no edema, pink and warm, pulses normal, no ischemia or petechiae Neurologic: pupils equal and round (dilated, minimally responsive to light), unable to assess Psychiatric: other (unable to assess re: AMS) CBC and BMP: 07/01/20 06:01 07/01/20 06:01 ABG, PT/INR, D-dimer: ABG ABG pH 7.438 pH Units (7.350-7.450) 06/29/20 03:54 POC ABG pCO2 54.7 mmHg (32.0-48.0) H 06/23/20 12:34 ABG pCO2 40.7 mm Hg 06/29/20 03:54 POC ABG pO2 68.8 mmHg (83-108) L 06/23/20 12:34 ABG pO2 89.2 mm Hg (80.0-90.0) 06/29/20 03:54 POC ABG HCO3 30.2 06/23/20 12:34 ABG O2 Saturation 97.2 % (95.0-99.0) 06/29/20 03:54 PT/INR, D-dimer PT 14.2 Sec. (12.2-14.9) 05/29/20 15:10 INR 1.08 (0.87-1.13) 05/29/20 15:10 D-Dimer 2310.15 ng/mlDDU (0-234) H 06/29/20 14:45 Abnormal lab findings: Abnormal Labs 05/28/20 05/28/20 05/28/20 13:29 13:47 13:47 WBC RBC Hgb Hct MCHC RDW 15.3 H Lymph % (Auto) [place] % (Auto) Eos % (Auto) Lymph # [place] # Seg Neutrophils % Seg Neuts % (Manual) Lymphocytes % (Manual) Seg Neutrophils # Seg Neutrophils # Man Lymphocytes # (Manual) Monocytes # (Manual) D-Dimer Heparin Anti-Xa Level ABG pH POC ABG pCO2 POC ABG pO2 ABG pO2 ABG HCO3 ABG O2 Saturation ABG Base Excess ABG Hemoglobin ABG Oxyhemoglobin VBG pH Oxyhemoglobin Sodium Potassium 6.6 H* Chloride 109.2 H Carbon Dioxide 17 L BUN 29 H Creatinine 1.3 H Glucose 265 H POC Glucose 248 H Lactic Acid Calcium 8.1 L Ferritin AST 63 H Alkaline Phosphatase Lactate Dehydrogenase Total Creatine Kinase 301 H CK-MB (CK-2) 4.3 H C-Reactive Protein Total Protein 5.4 L Albumin 2.6 L Urine WBC (Auto) Urine Creatinine Urine Total Protein Coronavirus (PCR) Crossmatch 05/28/20 05/28/20 05/28/20 13:47 13:47 14:46 WBC RBC Hgb Hct MCHC RDW Lymph % (Auto) [place] % (Auto) Eos % (Auto) Lymph # [place] # Seg Neutrophils % Seg Neuts % (Manual) Lymphocytes % (Manual) Seg Neutrophils # Seg Neutrophils # Man Lymphocytes # (Manual) Monocytes # (Manual) D-Dimer Heparin Anti-Xa Level ABG pH POC ABG pCO2 POC ABG pO2 ABG pO2 ABG HCO3 ABG O2 Saturation ABG Base Excess ABG Hemoglobin ABG Oxyhemoglobin VBG pH 7.152 L* Oxyhemoglobin Sodium Potassium 7.2 H* Chloride Carbon Dioxide BUN Creatinine Glucose POC Glucose Lactic Acid 3.40 H* Calcium Ferritin AST Alkaline Phosphatase Lactate Dehydrogenase Total Creatine Kinase CK-MB (CK-2) C-Reactive Protein Total Protein Albumin Urine WBC (Auto) Urine Creatinine Urine Total Protein Coronavirus (PCR) Crossmatch 05/28/20 05/28/20 05/28/20 15:33 15:33 15:51 WBC RBC Hgb Hct MCHC RDW Lymph % (Auto) [place] % (Auto) Eos % (Auto) Lymph # [place] # Seg Neutrophils % Seg Neuts % (Manual) Lymphocytes % (Manual) Seg Neutrophils # Seg Neutrophils # Man Lymphocytes # (Manual) Monocytes # (Manual) D-Dimer 8780.43 H Heparin Anti-Xa Level ABG pH 7.284 L POC ABG pCO2 POC ABG pO2 ABG pO2 273.0 H ABG HCO3 ABG O2 Saturation 99.4 H ABG Base Excess -6.1 L ABG Hemoglobin 17.2 H ABG Oxyhemoglobin VBG pH Oxyhemoglobin Sodium Potassium Chloride Carbon Dioxide BUN Creatinine Glucose 152 H POC Glucose Lactic Acid Calcium Ferritin AST Alkaline Phosphatase Lactate Dehydrogenase 365 H Total Creatine Kinase CK-MB (CK-2) C-Reactive Protein Total Protein Albumin Urine WBC (Auto) Urine Creatinine Urine Total Protein Coronavirus (PCR) Crossmatch 05/28/20 05/28/20 05/28/20 16:30 20:41 23:20 WBC RBC Hgb Hct MCHC RDW Lymph % (Auto) [place] % (Auto) Eos % (Auto) Lymph # [place] # Seg Neutrophils % Seg Neuts % (Manual) Lymphocytes % (Manual) Seg Neutrophils # Seg Neutrophils # Man Lymphocytes # (Manual) Monocytes # (Manual) D-Dimer Heparin Anti-Xa Level ABG pH POC ABG pCO2 POC ABG pO2 ABG pO2 ABG HCO3 ABG O2 Saturation ABG Base Excess ABG Hemoglobin ABG Oxyhemoglobin VBG pH Oxyhemoglobin Sodium Potassium Chloride Carbon Dioxide BUN Creatinine Glucose POC Glucose 225 H 224 H Lactic Acid Calcium Ferritin AST Alkaline Phosphatase Lactate Dehydrogenase Total Creatine Kinase CK-MB (CK-2) C-Reactive Protein Total Protein Albumin Urine WBC (Auto) 17.0 H Urine Creatinine Urine Total Protein Coronavirus (PCR) Crossmatch 05/28/20 05/29/20 05/29/20 Unknown 04:35 04:43 WBC RBC 3.48 L Hgb 9.8 L Hct 29.4 L MCHC RDW 16.0 H Lymph % (Auto) 7.4 L [place] % (Auto) Eos % (Auto) Lymph # 0.7 L [place] # Seg Neutrophils % 89.1 H Seg Neuts % (Manual) Lymphocytes % (Manual) Seg Neutrophils # 8.1 H Seg Neutrophils # Man Lymphocytes # (Manual) Monocytes # (Manual) D-Dimer Heparin Anti-Xa Level ABG pH POC ABG pCO2 POC ABG pO2 ABG pO2 ABG HCO3 19.3 L ABG O2 Saturation ABG Base Excess -4.5 L ABG Hemoglobin 9.7 L ABG Oxyhemoglobin VBG pH Oxyhemoglobin Sodium Potassium Chloride Carbon Dioxide BUN Creatinine Glucose POC Glucose Lactic Acid Calcium Ferritin AST Alkaline Phosphatase Lactate Dehydrogenase Total Creatine Kinase CK-MB (CK-2) C-Reactive Protein Total Protein Albumin Urine WBC (Auto) Urine Creatinine Urine Total Protein Coronavirus (PCR) Positive A Crossmatch 05/29/20 05/29/20 05/29/20 04:43 15:10 17:17 WBC RBC Hgb 9.3 L Hct 28.7 L MCHC RDW Lymph % (Auto) [place] % (Auto) Eos % (Auto) Lymph # [place] # Seg Neutrophils % Seg Neuts % (Manual) Lymphocytes % (Manual) Seg Neutrophils # Seg Neutrophils # Man Lymphocytes # (Manual) Monocytes # (Manual) D-Dimer Heparin Anti-Xa Level ABG pH POC ABG pCO2 POC ABG pO2 ABG pO2 ABG HCO3 ABG O2 Saturation ABG Base Excess ABG Hemoglobin ABG Oxyhemoglobin VBG pH Oxyhemoglobin Sodium Potassium Chloride 110.2 H Carbon Dioxide 18 L BUN 32 H Creatinine 1.4 H Glucose 180 H POC Glucose 147 H Lactic Acid Calcium Ferritin AST Alkaline Phosphatase Lactate Dehydrogenase Total Creatine Kinase CK-MB (CK-2) C-Reactive Protein Total Protein Albumin Urine WBC (Auto) Urine Creatinine Urine Total Protein Coronavirus (PCR) Crossmatch 05/30/20 05/30/20 05/30/20 00:08 00:12 04:15 WBC RBC Hgb Hct MCHC RDW Lymph % (Auto) [place] % (Auto) Eos % (Auto) Lymph # [place] # Seg Neutrophils % Seg Neuts % (Manual) Lymphocytes % (Manual) Seg Neutrophils # Seg Neutrophils # Man Lymphocytes # (Manual) Monocytes # (Manual) D-Dimer Heparin Anti-Xa Level 0.71 H ABG pH 7.460 H POC ABG pCO2 POC ABG pO2 ABG pO2 106.0 H ABG HCO3 18.9 L ABG O2 Saturation ABG Base Excess -4.4 L ABG Hemoglobin 6.8 L ABG Oxyhemoglobin VBG pH Oxyhemoglobin Sodium Potassium Chloride Carbon Dioxide BUN Creatinine Glucose POC Glucose 195 H Lactic Acid Calcium Ferritin AST Alkaline Phosphatase Lactate Dehydrogenase Total Creatine Kinase CK-MB (CK-2) C-Reactive Protein Total Protein Albumin Urine WBC (Auto) Urine Creatinine Urine Total Protein Coronavirus (PCR) Crossmatch 05/30/20 05/30/20 05/30/20 06:07 08:37 12:33 WBC RBC Hgb Hct MCHC RDW Lymph % (Auto) [place] % (Auto) Eos % (Auto) Lymph # [place] # Seg Neutrophils % Seg Neuts % (Manual) Lymphocytes % (Manual) Seg Neutrophils # Seg Neutrophils # Man Lymphocytes # (Manual) Monocytes # (Manual) D-Dimer Heparin Anti-Xa Level 0.85 H ABG pH POC ABG pCO2 POC ABG pO2 ABG pO2 ABG HCO3 ABG O2 Saturation ABG Base Excess ABG Hemoglobin ABG Oxyhemoglobin VBG pH Oxyhemoglobin Sodium Potassium Chloride Carbon Dioxide BUN Creatinine Glucose POC Glucose 182 H 187 H Lactic Acid Calcium Ferritin AST Alkaline Phosphatase Lactate Dehydrogenase Total Creatine Kinase CK-MB (CK-2) C-Reactive Protein Total Protein Albumin Urine WBC (Auto) Urine Creatinine Urine Total Protein Coronavirus (PCR) Crossmatch 05/30/20 05/30/20 05/30/20 15:58 17:57 23:36 WBC RBC Hgb Hct MCHC RDW Lymph % (Auto) [place] % (Auto) Eos % (Auto) Lymph # [place] # Seg Neutrophils % Seg Neuts % (Manual) Lymphocytes % (Manual) Seg Neutrophils # Seg Neutrophils # Man Lymphocytes # (Manual) Monocytes # (Manual) D-Dimer Heparin Anti-Xa Level 1.03 H ABG pH POC ABG pCO2 POC ABG pO2 ABG pO2 ABG HCO3 ABG O2 Saturation ABG Base Excess ABG Hemoglobin ABG Oxyhemoglobin VBG pH Oxyhemoglobin Sodium Potassium Chloride Carbon Dioxide BUN Creatinine Glucose POC Glucose 208 H 185 H Lactic Acid Calcium Ferritin AST Alkaline Phosphatase Lactate Dehydrogenase Total Creatine Kinase CK-MB (CK-2) C-Reactive Protein Total Protein Albumin Urine WBC (Auto) Urine Creatinine Urine Total Protein Coronavirus (PCR) Crossmatch 05/31/20 05/31/20 05/31/20 02:16 03:55 06:16 WBC RBC Hgb 9.2 L Hct 27.5 L MCHC RDW Lymph % (Auto) [place] % (Auto) Eos % (Auto) Lymph # [place] # Seg Neutrophils % Seg Neuts % (Manual) Lymphocytes % (Manual) Seg Neutrophils # Seg Neutrophils # Man Lymphocytes # (Manual) Monocytes # (Manual) D-Dimer Heparin Anti-Xa Level ABG pH POC ABG pCO2 POC ABG pO2 ABG pO2 94.7 H ABG HCO3 18.6 L ABG O2 Saturation ABG Base Excess -5.5 L ABG Hemoglobin 7.9 L ABG Oxyhemoglobin VBG pH Oxyhemoglobin Sodium Potassium Chloride Carbon Dioxide BUN Creatinine Glucose POC Glucose 160 H Lactic Acid Calcium Ferritin AST Alkaline Phosphatase Lactate Dehydrogenase Total Creatine Kinase CK-MB (CK-2) C-Reactive Protein Total Protein Albumin Urine WBC (Auto) Urine Creatinine Urine Total Protein Coronavirus (PCR) Crossmatch 05/31/20 05/31/20 05/31/20 12:20 13:03 18:13 WBC RBC Hgb Hct MCHC RDW Lymph % (Auto) [place] % (Auto) Eos % (Auto) Lymph # [place] # Seg Neutrophils % Seg Neuts % (Manual) Lymphocytes % (Manual) Seg Neutrophils # Seg Neutrophils # Man Lymphocytes # (Manual) Monocytes # (Manual) D-Dimer Heparin Anti-Xa Level ABG pH POC ABG pCO2 POC ABG pO2 ABG pO2 ABG HCO3 ABG O2 Saturation ABG Base Excess ABG Hemoglobin ABG Oxyhemoglobin VBG pH Oxyhemoglobin Sodium Potassium Chloride Carbon Dioxide 18 L BUN 48 H Creatinine 1.6 H Glucose 115 H POC Glucose 128 H 159 H Lactic Acid Calcium 8.3 L Ferritin AST Alkaline Phosphatase Lactate Dehydrogenase Total Creatine Kinase CK-MB (CK-2) C-Reactive Protein Total Protein 5.4 L Albumin 2.4 L Urine WBC (Auto) Urine Creatinine Urine Total Protein Coronavirus (PCR) Crossmatch 05/31/20 06/01/20 06/01/20 23:51 04:00 05:48 WBC RBC Hgb Hct MCHC RDW Lymph % (Auto) [place] % (Auto) Eos % (Auto) Lymph # [place] # Seg Neutrophils % Seg Neuts % (Manual) Lymphocytes % (Manual) Seg Neutrophils # Seg Neutrophils # Man Lymphocytes # (Manual) Monocytes # (Manual) D-Dimer Heparin Anti-Xa Level ABG pH POC ABG pCO2 POC ABG pO2 ABG pO2 109.8 H ABG HCO3 18.8 L ABG O2 Saturation ABG Base Excess -5.9 L ABG Hemoglobin 7.8 L ABG Oxyhemoglobin VBG pH Oxyhemoglobin Sodium Potassium Chloride Carbon Dioxide BUN Creatinine Glucose POC Glucose 171 H 133 H Lactic Acid Calcium Ferritin AST Alkaline Phosphatase Lactate Dehydrogenase Total Creatine Kinase CK-MB (CK-2) C-Reactive Protein Total Protein Albumin Urine WBC (Auto) Urine Creatinine Urine Total Protein Coronavirus (PCR) Crossmatch 06/01/20 06/01/20 06/02/20 12:28 17:29 00:08 WBC RBC Hgb Hct MCHC RDW Lymph % (Auto) [place] % (Auto) Eos % (Auto) Lymph # [place] # Seg Neutrophils % Seg Neuts % (Manual) Lymphocytes % (Manual) Seg Neutrophils # Seg Neutrophils # Man Lymphocytes # (Manual) Monocytes # (Manual) D-Dimer Heparin Anti-Xa Level ABG pH POC ABG pCO2 POC ABG pO2 ABG pO2 ABG HCO3 ABG O2 Saturation ABG Base Excess ABG Hemoglobin ABG Oxyhemoglobin VBG pH Oxyhemoglobin Sodium Potassium Chloride Carbon Dioxide BUN Creatinine Glucose POC Glucose 199 H 209 H 162 H Lactic Acid Calcium Ferritin AST Alkaline Phosphatase Lactate Dehydrogenase Total Creatine Kinase CK-MB (CK-2) C-Reactive Protein Total Protein Albumin Urine WBC (Auto) Urine Creatinine Urine Total Protein Coronavirus (PCR) Crossmatch 06/02/20 06/02/20 06/02/20 04:20 04:20 04:44 WBC RBC Hgb 10.0 L Hct MCHC RDW Lymph % (Auto) [place] % (Auto) Eos % (Auto) Lymph # [place] # Seg Neutrophils % Seg Neuts % (Manual) Lymphocytes % (Manual) Seg Neutrophils # Seg Neutrophils # Man Lymphocytes # (Manual) Monocytes # (Manual) D-Dimer Heparin Anti-Xa Level 0.10 L ABG pH POC ABG pCO2 POC ABG pO2 ABG pO2 150.6 H ABG HCO3 ABG O2 Saturation ABG Base Excess -4.1 L ABG Hemoglobin 11.8 L ABG Oxyhemoglobin VBG pH Oxyhemoglobin Sodium Potassium Chloride Carbon Dioxide BUN Creatinine Glucose POC Glucose Lactic Acid Calcium Ferritin AST Alkaline Phosphatase Lactate Dehydrogenase Total Creatine Kinase CK-MB (CK-2) C-Reactive Protein Total Protein Albumin Urine WBC (Auto) Urine Creatinine Urine Total Protein Coronavirus (PCR) Crossmatch 06/02/20 06/02/20 06/02/20 05:53 12:04 13:49 WBC RBC Hgb Hct MCHC RDW Lymph % (Auto) [place] % (Auto) Eos % (Auto) Lymph # [place] # Seg Neutrophils % Seg Neuts % (Manual) Lymphocytes % (Manual) Seg Neutrophils # Seg Neutrophils # Man Lymphocytes # (Manual) Monocytes # (Manual) D-Dimer Heparin Anti-Xa Level 0.28 L ABG pH POC ABG pCO2 POC ABG pO2 ABG pO2 ABG HCO3 ABG O2 Saturation ABG Base Excess ABG Hemoglobin ABG Oxyhemoglobin VBG pH Oxyhemoglobin Sodium Potassium Chloride Carbon Dioxide BUN Creatinine Glucose POC Glucose 149 H 220 H Lactic Acid Calcium Ferritin AST Alkaline Phosphatase Lactate Dehydrogenase Total Creatine Kinase CK-MB (CK-2) C-Reactive Protein Total Protein Albumin Urine WBC (Auto) Urine Creatinine Urine Total Protein Coronavirus (PCR) Crossmatch 06/02/20 06/02/20 06/03/20 13:49 18:31 00:42 WBC RBC Hgb Hct MCHC RDW Lymph % (Auto) [place] % (Auto) Eos % (Auto) Lymph # [place] # Seg Neutrophils % Seg Neuts % (Manual) Lymphocytes % (Manual) Seg Neutrophils # Seg Neutrophils # Man Lymphocytes # (Manual) Monocytes # (Manual) D-Dimer 769.68 H Heparin Anti-Xa Level ABG pH POC ABG pCO2 POC ABG pO2 ABG pO2 ABG HCO3 ABG O2 Saturation ABG Base Excess ABG Hemoglobin ABG Oxyhemoglobin VBG pH Oxyhemoglobin Sodium Potassium Chloride Carbon Dioxide BUN Creatinine Glucose POC Glucose 225 H 212 H Lactic Acid Calcium Ferritin AST Alkaline Phosphatase Lactate Dehydrogenase Total Creatine Kinase CK-MB (CK-2) C-Reactive Protein Total Protein Albumin Urine WBC (Auto) Urine Creatinine Urine Total Protein Coronavirus (PCR) Crossmatch 06/03/20 06/03/20 06/03/20 05:16 05:16 05:25 WBC 11.4 H RBC Hgb Hct MCHC RDW 16.4 H Lymph % (Auto) [place] % (Auto) Eos % (Auto) Lymph # [place] # Seg Neutrophils % Seg Neuts % (Manual) Lymphocytes % (Manual) Seg Neutrophils # Seg Neutrophils # Man Lymphocytes # (Manual) Monocytes # (Manual) D-Dimer Heparin Anti-Xa Level ABG pH POC ABG pCO2 POC ABG pO2 ABG pO2 160.9 H ABG HCO3 19.4 L ABG O2 Saturation ABG Base Excess -4.9 L ABG Hemoglobin 7.0 L ABG Oxyhemoglobin VBG pH Oxyhemoglobin Sodium Potassium Chloride Carbon Dioxide 18 L BUN 65 H Creatinine 2.0 H Glucose 175 H POC Glucose Lactic Acid Calcium 8.0 L Ferritin AST Alkaline Phosphatase Lactate Dehydrogenase Total Creatine Kinase CK-MB (CK-2) C-Reactive Protein Total Protein 5.5 L Albumin 2.2 L Urine WBC (Auto) Urine Creatinine Urine Total Protein Coronavirus (PCR) Crossmatch 06/03/20 06/03/20 06/03/20 06:07 11:58 18:24 WBC RBC Hgb Hct MCHC RDW Lymph % (Auto) [place] % (Auto) Eos % (Auto) Lymph # [place] # Seg Neutrophils % Seg Neuts % (Manual) Lymphocytes % (Manual) Seg Neutrophils # Seg Neutrophils # Man Lymphocytes # (Manual) Monocytes # (Manual) D-Dimer Heparin Anti-Xa Level ABG pH POC ABG pCO2 POC ABG pO2 ABG pO2 ABG HCO3 ABG O2 Saturation ABG Base Excess ABG Hemoglobin ABG Oxyhemoglobin VBG pH Oxyhemoglobin Sodium Potassium Chloride Carbon Dioxide BUN Creatinine Glucose POC Glucose 177 H 163 H 211 H Lactic Acid Calcium Ferritin AST Alkaline Phosphatase Lactate Dehydrogenase Total Creatine Kinase CK-MB (CK-2) C-Reactive Protein Total Protein Albumin Urine WBC (Auto) Urine Creatinine Urine Total Protein Coronavirus (PCR) Crossmatch 06/03/20 06/03/20 06/04/20 21:50 Unknown 00:26 WBC RBC Hgb Hct MCHC RDW Lymph % (Auto) [place] % (Auto) Eos % (Auto) Lymph # [place] # Seg Neutrophils % Seg Neuts % (Manual) Lymphocytes % (Manual) Seg Neutrophils # Seg Neutrophils # Man Lymphocytes # (Manual) Monocytes # (Manual) D-Dimer Heparin Anti-Xa Level ABG pH POC ABG pCO2 POC ABG pO2 ABG pO2 ABG HCO3 ABG O2 Saturation ABG Base Excess ABG Hemoglobin ABG Oxyhemoglobin VBG pH Oxyhemoglobin Sodium 135 L Potassium Chloride Carbon Dioxide 18 L BUN Creatinine Glucose POC Glucose 241 H Lactic Acid Calcium Ferritin AST Alkaline Phosphatase Lactate Dehydrogenase Total Creatine Kinase CK-MB (CK-2) C-Reactive Protein Total Protein Albumin Urine WBC (Auto) 11.0 H Urine Creatinine Urine Total Protein Coronavirus (PCR) Crossmatch 06/04/20 06/04/20 06/04/20 03:35 04:19 04:19 WBC RBC 3.15 L Hgb 8.9 L Hct 26.8 L D MCHC RDW 15.9 H Lymph % (Auto) 6.0 L [place] % (Auto) Eos % (Auto) Lymph # 0.6 L [place] # Seg Neutrophils % 86.6 H Seg Neuts % (Manual) Lymphocytes % (Manual) Seg Neutrophils # 9.1 H Seg Neutrophils # Man Lymphocytes # (Manual) Monocytes # (Manual) D-Dimer Heparin Anti-Xa Level ABG pH 7.331 L POC ABG pCO2 POC ABG pO2 ABG pO2 ABG HCO3 ABG O2 Saturation ABG Base Excess -4.7 L ABG Hemoglobin 11.0 L ABG Oxyhemoglobin VBG pH Oxyhemoglobin 93.9 L Sodium 136 L Potassium Chloride Carbon Dioxide 20 L BUN 73 H Creatinine 2.0 H Glucose 192 H POC Glucose Lactic Acid Calcium 8.0 L Ferritin AST Alkaline Phosphatase Lactate Dehydrogenase 271 H Total Creatine Kinase CK-MB (CK-2) C-Reactive Protein 2.20 H Total Protein 5.0 L Albumin 2.0 L Urine WBC (Auto) Urine Creatinine Urine Total Protein Coronavirus (PCR) Crossmatch 06/04/20 06/04/20 06/04/20 04:19 05:51 11:48 WBC RBC Hgb Hct MCHC RDW Lymph % (Auto) [place] % (Auto) Eos % (Auto) Lymph # [place] # Seg Neutrophils % Seg Neuts % (Manual) Lymphocytes % (Manual) Seg Neutrophils # Seg Neutrophils # Man Lymphocytes # (Manual) Monocytes # (Manual) D-Dimer 414.52 H Heparin Anti-Xa Level ABG pH POC ABG pCO2 POC ABG pO2 ABG pO2 ABG HCO3 ABG O2 Saturation ABG Base Excess ABG Hemoglobin ABG Oxyhemoglobin VBG pH Oxyhemoglobin Sodium Potassium Chloride Carbon Dioxide BUN Creatinine Glucose POC Glucose 179 H 213 H Lactic Acid Calcium Ferritin AST Alkaline Phosphatase Lactate Dehydrogenase Total Creatine Kinase CK-MB (CK-2) C-Reactive Protein Total Protein Albumin Urine WBC (Auto) Urine Creatinine Urine Total Protein Coronavirus (PCR) Crossmatch 06/04/20 06/05/20 06/05/20 18:25 00:16 05:00 WBC RBC Hgb Hct MCHC RDW Lymph % (Auto) [place] % (Auto) Eos % (Auto) Lymph # [place] # Seg Neutrophils % Seg Neuts % (Manual) Lymphocytes % (Manual) Seg Neutrophils # Seg Neutrophils # Man Lymphocytes # (Manual) Monocytes # (Manual) D-Dimer Heparin Anti-Xa Level ABG pH 7.286 L POC ABG pCO2 POC ABG pO2 ABG pO2 96.2 H ABG HCO3 ABG O2 Saturation ABG Base Excess -6.3 L ABG Hemoglobin 8.8 L ABG Oxyhemoglobin VBG pH Oxyhemoglobin 94.8 L Sodium Potassium Chloride Carbon Dioxide BUN Creatinine Glucose POC Glucose 238 H 183 H Lactic Acid Calcium Ferritin AST Alkaline Phosphatase Lactate Dehydrogenase Total Creatine Kinase CK-MB (CK-2) C-Reactive Protein Total Protein Albumin Urine WBC (Auto) Urine Creatinine Urine Total Protein Coronavirus (PCR) Crossmatch 06/05/20 06/05/20 06/05/20 05:39 07:25 07:25 WBC RBC 2.97 L Hgb 8.7 L Hct 25.7 L MCHC RDW 16.0 H Lymph % (Auto) 8.8 L [place] % (Auto) 13.3 H Eos % (Auto) Lymph # 0.8 L [place] # 1.3 H Seg Neutrophils % 77.3 H Seg Neuts % (Manual) Lymphocytes % (Manual) Seg Neutrophils # Seg Neutrophils # Man Lymphocytes # (Manual) Monocytes # (Manual) D-Dimer Heparin Anti-Xa Level ABG pH POC ABG pCO2 POC ABG pO2 ABG pO2 ABG HCO3 ABG O2 Saturation ABG Base Excess ABG Hemoglobin ABG Oxyhemoglobin VBG pH Oxyhemoglobin Sodium 133 L Potassium Chloride Carbon Dioxide 17 L BUN 89 H Creatinine 2.8 H Glucose 176 H POC Glucose 149 H Lactic Acid Calcium 7.7 L Ferritin AST Alkaline Phosphatase Lactate Dehydrogenase Total Creatine Kinase CK-MB (CK-2) C-Reactive Protein Total Protein 4.2 L Albumin 1.9 L Urine WBC (Auto) Urine Creatinine Urine Total Protein Coronavirus (PCR) Crossmatch 06/05/20 06/05/20 06/05/20 07:25 12:05 15:41 WBC RBC Hgb Hct MCHC RDW Lymph % (Auto) [place] % (Auto) Eos % (Auto) Lymph # [place] # Seg Neutrophils % Seg Neuts % (Manual) Lymphocytes % (Manual) Seg Neutrophils # Seg Neutrophils # Man Lymphocytes # (Manual) Monocytes # (Manual) D-Dimer Heparin Anti-Xa Level 0.76 H 0.81 H ABG pH POC ABG pCO2 POC ABG pO2 ABG pO2 ABG HCO3 ABG O2 Saturation ABG Base Excess ABG Hemoglobin ABG Oxyhemoglobin VBG pH Oxyhemoglobin Sodium Potassium Chloride Carbon Dioxide BUN Creatinine Glucose POC Glucose 198 H Lactic Acid Calcium Ferritin AST Alkaline Phosphatase Lactate Dehydrogenase Total Creatine Kinase CK-MB (CK-2) C-Reactive Protein Total Protein Albumin Urine WBC (Auto) Urine Creatinine Urine Total Protein Coronavirus (PCR) Crossmatch 06/05/20 06/05/20 06/06/20 18:08 23:25 04:00 WBC RBC Hgb Hct MCHC RDW Lymph % (Auto) [place] % (Auto) Eos % (Auto) Lymph # [place] # Seg Neutrophils % Seg Neuts % (Manual) Lymphocytes % (Manual) Seg Neutrophils # Seg Neutrophils # Man Lymphocytes # (Manual) Monocytes # (Manual) D-Dimer Heparin Anti-Xa Level ABG pH POC ABG pCO2 POC ABG pO2 ABG pO2 ABG HCO3 ABG O2 Saturation ABG Base Excess ABG Hemoglobin ABG Oxyhemoglobin VBG pH Oxyhemoglobin Sodium Potassium Chloride Carbon Dioxide BUN Creatinine Glucose POC Glucose 223 H 169 H Lactic Acid Calcium Ferritin AST Alkaline Phosphatase Lactate Dehydrogenase Total Creatine Kinase CK-MB (CK-2) C-Reactive Protein Total Protein Albumin Urine WBC (Auto) 15.0 H Urine Creatinine Urine Total Protein Coronavirus (PCR) Crossmatch 06/06/20 06/06/20 06/06/20 04:00 05:33 05:38 WBC RBC 2.97 L Hgb 8.7 L Hct 26.8 L MCHC RDW 16.8 H Lymph % (Auto) [place] % (Auto) Eos % (Auto) Lymph # [place] # Seg Neutrophils % Seg Neuts % (Manual) Lymphocytes % (Manual) Seg Neutrophils # Seg Neutrophils # Man Lymphocytes # (Manual) Monocytes # (Manual) D-Dimer Heparin Anti-Xa Level ABG pH POC ABG pCO2 POC ABG pO2 ABG pO2 ABG HCO3 ABG O2 Saturation ABG Base Excess ABG Hemoglobin ABG Oxyhemoglobin VBG pH Oxyhemoglobin Sodium Potassium Chloride Carbon Dioxide BUN Creatinine Glucose POC Glucose 186 H Lactic Acid Calcium Ferritin AST Alkaline Phosphatase Lactate Dehydrogenase Total Creatine Kinase CK-MB (CK-2) C-Reactive Protein Total Protein Albumin Urine WBC (Auto) Urine Creatinine 82.2 H Urine Total Protein 196 H Coronavirus (PCR) Crossmatch 06/06/20 06/06/20 06/06/20 05:38 12:25 17:03 WBC RBC Hgb Hct MCHC RDW Lymph % (Auto) [place] % (Auto) Eos % (Auto) Lymph # [place] # Seg Neutrophils % Seg Neuts % (Manual) Lymphocytes % (Manual) Seg Neutrophils # Seg Neutrophils # Man Lymphocytes # (Manual) Monocytes # (Manual) D-Dimer Heparin Anti-Xa Level ABG pH POC ABG pCO2 POC ABG pO2 ABG pO2 ABG HCO3 ABG O2 Saturation ABG Base Excess ABG Hemoglobin ABG Oxyhemoglobin VBG pH Oxyhemoglobin Sodium 134 L Potassium 5.2 H Chloride Carbon Dioxide 18 L BUN 97 H Creatinine 2.5 H Glucose 193 H POC Glucose 239 H 252 H Lactic Acid Calcium 7.5 L Ferritin AST Alkaline Phosphatase Lactate Dehydrogenase Total Creatine Kinase CK-MB (CK-2) C-Reactive Protein Total Protein 4.1 L Albumin 1.9 L Urine WBC (Auto) Urine Creatinine Urine Total Protein Coronavirus (PCR) Crossmatch 06/07/20 06/07/20 06/07/20 00:16 01:49 04:00 WBC RBC 2.91 L Hgb 8.4 L Hct 25.0 L MCHC RDW 16.1 H Lymph % (Auto) 5.7 L [place] % (Auto) 10.5 H Eos % (Auto) Lymph # 0.6 L [place] # 1.1 H Seg Neutrophils % 83.6 H Seg Neuts % (Manual) Lymphocytes % (Manual) Seg Neutrophils # 9.1 H Seg Neutrophils # Man Lymphocytes # (Manual) Monocytes # (Manual) D-Dimer Heparin Anti-Xa Level 0.26 L ABG pH POC ABG pCO2 POC ABG pO2 ABG pO2 ABG HCO3 ABG O2 Saturation ABG Base Excess ABG Hemoglobin ABG Oxyhemoglobin VBG pH Oxyhemoglobin Sodium Potassium Chloride Carbon Dioxide BUN Creatinine Glucose POC Glucose 173 H Lactic Acid Calcium Ferritin AST Alkaline Phosphatase Lactate Dehydrogenase Total Creatine Kinase CK-MB (CK-2) C-Reactive Protein Total Protein Albumin Urine WBC (Auto) Urine Creatinine Urine Total Protein Coronavirus (PCR) Crossmatch 06/07/20 06/07/20 06/07/20 04:00 04:54 05:51 WBC RBC Hgb Hct MCHC RDW Lymph % (Auto) [place] % (Auto) Eos % (Auto) Lymph # [place] # Seg Neutrophils % Seg Neuts % (Manual) Lymphocytes % (Manual) Seg Neutrophils # Seg Neutrophils # Man Lymphocytes # (Manual) Monocytes # (Manual) D-Dimer Heparin Anti-Xa Level ABG pH 7.317 L POC ABG pCO2 POC ABG pO2 ABG pO2 71.4 L ABG HCO3 ABG O2 Saturation 94.3 L ABG Base Excess -4.8 L ABG Hemoglobin 7.1 L ABG Oxyhemoglobin VBG pH Oxyhemoglobin 92.2 L Sodium 133 L Potassium Chloride Carbon Dioxide 18 L BUN 100 H Creatinine 2.5 H Glucose 158 H POC Glucose 168 H Lactic Acid Calcium 7.6 L Ferritin AST Alkaline Phosphatase Lactate Dehydrogenase Total Creatine Kinase CK-MB (CK-2) C-Reactive Protein Total Protein 4.7 L Albumin 2.0 L Urine WBC (Auto) Urine Creatinine Urine Total Protein Coronavirus (PCR) Crossmatch 06/07/20 06/07/20 06/07/20 12:03 17:17 20:10 WBC RBC Hgb Hct MCHC RDW Lymph % (Auto) [place] % (Auto) Eos % (Auto) Lymph # [place] # Seg Neutrophils % Seg Neuts % (Manual) Lymphocytes % (Manual) Seg Neutrophils # Seg Neutrophils # Man Lymphocytes # (Manual) Monocytes # (Manual) D-Dimer Heparin Anti-Xa Level 0.17 L ABG pH POC ABG pCO2 POC ABG pO2 ABG pO2 ABG HCO3 ABG O2 Saturation ABG Base Excess ABG Hemoglobin ABG Oxyhemoglobin VBG pH Oxyhemoglobin Sodium Potassium Chloride Carbon Dioxide BUN Creatinine Glucose POC Glucose 276 H 281 H Lactic Acid Calcium Ferritin AST Alkaline Phosphatase Lactate Dehydrogenase Total Creatine Kinase CK-MB (CK-2) C-Reactive Protein Total Protein Albumin Urine WBC (Auto) Urine Creatinine Urine Total Protein Coronavirus (PCR) Crossmatch 06/08/20 06/08/20 06/08/20 00:02 04:47 04:47 WBC 16.4 H RBC 3.07 L Hgb 8.6 L Hct 26.5 L MCHC RDW 16.3 H Lymph % (Auto) [place] % (Auto) Eos % (Auto) Lymph # [place] # Seg Neutrophils % Seg Neuts % (Manual) 90.0 H Lymphocytes % (Manual) 3.0 L Seg Neutrophils # Seg Neutrophils # Man 14.8 H Lymphocytes # (Manual) 0.5 L Monocytes # (Manual) 1.1 H D-Dimer Heparin Anti-Xa Level ABG pH POC ABG pCO2 POC ABG pO2 ABG pO2 ABG HCO3 ABG O2 Saturation ABG Base Excess ABG Hemoglobin ABG Oxyhemoglobin VBG pH Oxyhemoglobin Sodium 129 L Potassium Chloride 95.6 L Carbon Dioxide 17 L BUN 106 H Creatinine 2.5 H Glucose 213 H POC Glucose 242 H Lactic Acid Calcium 7.6 L Ferritin AST Alkaline Phosphatase Lactate Dehydrogenase Total Creatine Kinase CK-MB (CK-2) C-Reactive Protein Total Protein 5.0 L Albumin 2.1 L Urine WBC (Auto) Urine Creatinine Urine Total Protein Coronavirus (PCR) Crossmatch 06/08/20 06/08/20 06/08/20 05:40 11:55 17:54 WBC RBC Hgb Hct MCHC RDW Lymph % (Auto) [place] % (Auto) Eos % (Auto) Lymph # [place] # Seg Neutrophils % Seg Neuts % (Manual) Lymphocytes % (Manual) Seg Neutrophils # Seg Neutrophils # Man Lymphocytes # (Manual) Monocytes # (Manual) D-Dimer Heparin Anti-Xa Level ABG pH POC ABG pCO2 POC ABG pO2 ABG pO2 ABG HCO3 ABG O2 Saturation ABG Base Excess ABG Hemoglobin ABG Oxyhemoglobin VBG pH Oxyhemoglobin Sodium Potassium Chloride Carbon Dioxide BUN Creatinine Glucose POC Glucose 221 H 218 H 163 H Lactic Acid Calcium Ferritin AST Alkaline Phosphatase Lactate Dehydrogenase Total Creatine Kinase CK-MB (CK-2) C-Reactive Protein Total Protein Albumin Urine WBC (Auto) Urine Creatinine Urine Total Protein Coronavirus (PCR) Crossmatch 06/08/20 06/09/20 06/09/20 22:01 00:09 05:16 WBC 19.0 H RBC 3.35 L Hgb 9.2 L Hct 28.5 L MCHC RDW 16.3 H Lymph % (Auto) [place] % (Auto) Eos % (Auto) Lymph # [place] # Seg Neutrophils % Seg Neuts % (Manual) 85.0 H Lymphocytes % (Manual) 7.0 L Seg Neutrophils # Seg Neutrophils # Man 16.2 H Lymphocytes # (Manual) Monocytes # (Manual) 1.3 H D-Dimer Heparin Anti-Xa Level ABG pH POC ABG pCO2 POC ABG pO2 ABG pO2 ABG HCO3 ABG O2 Saturation ABG Base Excess ABG Hemoglobin ABG Oxyhemoglobin VBG pH Oxyhemoglobin Sodium Potassium Chloride Carbon Dioxide BUN Creatinine Glucose POC Glucose 182 H 150 H Lactic Acid Calcium Ferritin AST Alkaline Phosphatase Lactate Dehydrogenase Total Creatine Kinase CK-MB (CK-2) C-Reactive Protein Total Protein Albumin Urine WBC (Auto) Urine Creatinine Urine Total Protein Coronavirus (PCR) Crossmatch 06/09/20 06/09/20 06/09/20 05:16 05:24 11:29 WBC RBC Hgb Hct MCHC RDW Lymph % (Auto) [place] % (Auto) Eos % (Auto) Lymph # [place] # Seg Neutrophils % Seg Neuts % (Manual) Lymphocytes % (Manual) Seg Neutrophils # Seg Neutrophils # Man Lymphocytes # (Manual) Monocytes # (Manual) D-Dimer Heparin Anti-Xa Level ABG pH POC ABG pCO2 POC ABG pO2 ABG pO2 ABG HCO3 ABG O2 Saturation ABG Base Excess ABG Hemoglobin ABG Oxyhemoglobin VBG pH Oxyhemoglobin Sodium 133 L Potassium Chloride Carbon Dioxide 19 L BUN 109 H Creatinine 2.1 H Glucose 133 H POC Glucose 128 H 119 H Lactic Acid Calcium 7.7 L Ferritin AST Alkaline Phosphatase < 5 L Lactate Dehydrogenase Total Creatine Kinase CK-MB (CK-2) C-Reactive Protein Total Protein 4.6 L Albumin < 0.2 L Urine WBC (Auto) Urine Creatinine Urine Total Protein Coronavirus (PCR) Crossmatch 06/09/20 06/10/20 06/10/20 17:32 00:00 05:49 WBC RBC Hgb Hct MCHC RDW Lymph % (Auto) [place] % (Auto) Eos % (Auto) Lymph # [place] # Seg Neutrophils % Seg Neuts % (Manual) Lymphocytes % (Manual) Seg Neutrophils # Seg Neutrophils # Man Lymphocytes # (Manual) Monocytes # (Manual) D-Dimer Heparin Anti-Xa Level 0.19 L ABG pH POC ABG pCO2 POC ABG pO2 ABG pO2 ABG HCO3 ABG O2 Saturation ABG Base Excess ABG Hemoglobin ABG Oxyhemoglobin VBG pH Oxyhemoglobin Sodium Potassium Chloride Carbon Dioxide BUN Creatinine Glucose POC Glucose 106 H 117 H Lactic Acid Calcium Ferritin AST Alkaline Phosphatase Lactate Dehydrogenase Total Creatine Kinase CK-MB (CK-2) C-Reactive Protein Total Protein Albumin Urine WBC (Auto) Urine Creatinine Urine Total Protein Coronavirus (PCR) Crossmatch 06/10/20 06/10/20 06/10/20 05:54 07:40 11:40 WBC RBC Hgb Hct MCHC RDW Lymph % (Auto) [place] % (Auto) Eos % (Auto) Lymph # [place] # Seg Neutrophils % Seg Neuts % (Manual) Lymphocytes % (Manual) Seg Neutrophils # Seg Neutrophils # Man Lymphocytes # (Manual) Monocytes # (Manual) D-Dimer Heparin Anti-Xa Level ABG pH POC ABG pCO2 POC ABG pO2 ABG pO2 ABG HCO3 ABG O2 Saturation ABG Base Excess ABG Hemoglobin ABG Oxyhemoglobin VBG pH Oxyhemoglobin Sodium 146 H D Potassium Chloride Carbon Dioxide 20 L BUN 99 H Creatinine 1.9 H Glucose 121 H POC Glucose 127 H 138 H Lactic Acid Calcium 8.2 L Ferritin AST Alkaline Phosphatase Lactate Dehydrogenase Total Creatine Kinase CK-MB (CK-2) C-Reactive Protein Total Protein Albumin Urine WBC (Auto) Urine Creatinine Urine Total Protein Coronavirus (PCR) Crossmatch 06/10/20 06/10/20 06/10/20 14:44 17:31 23:22 WBC RBC Hgb Hct MCHC RDW Lymph % (Auto) [place] % (Auto) Eos % (Auto) Lymph # [place] # Seg Neutrophils % Seg Neuts % (Manual) Lymphocytes % (Manual) Seg Neutrophils # Seg Neutrophils # Man Lymphocytes # (Manual) Monocytes # (Manual) D-Dimer Heparin Anti-Xa Level 0.17 L ABG pH POC ABG pCO2 POC ABG pO2 ABG pO2 ABG HCO3 ABG O2 Saturation ABG Base Excess ABG Hemoglobin ABG Oxyhemoglobin VBG pH Oxyhemoglobin Sodium Potassium Chloride Carbon Dioxide BUN Creatinine Glucose POC Glucose 128 H 114 H Lactic Acid Calcium Ferritin AST Alkaline Phosphatase Lactate Dehydrogenase Total Creatine Kinase CK-MB (CK-2) C-Reactive Protein Total Protein Albumin Urine WBC (Auto) Urine Creatinine Urine Total Protein Coronavirus (PCR) Crossmatch 06/11/20 06/11/20 06/11/20 00:22 03:45 03:45 WBC 14.6 H RBC 2.77 L Hgb 7.9 L Hct 24.3 L MCHC RDW 16.8 H Lymph % (Auto) 6.6 L [place] % (Auto) 8.5 H Eos % (Auto) Lymph # 1.0 L [place] # 1.2 H Seg Neutrophils % 82.9 H Seg Neuts % (Manual) Lymphocytes % (Manual) Seg Neutrophils # 12.1 H Seg Neutrophils # Man Lymphocytes # (Manual) Monocytes # (Manual) D-Dimer Heparin Anti-Xa Level 0.24 L ABG pH POC ABG pCO2 POC ABG pO2 ABG pO2 ABG HCO3 ABG O2 Saturation ABG Base Excess ABG Hemoglobin ABG Oxyhemoglobin VBG pH Oxyhemoglobin Sodium Potassium Chloride Carbon Dioxide 20 L BUN 88 H Creatinine 1.5 H Glucose 111 H POC Glucose Lactic Acid Calcium 8.2 L Ferritin AST Alkaline Phosphatase Lactate Dehydrogenase Total Creatine Kinase CK-MB (CK-2) C-Reactive Protein Total Protein Albumin Urine WBC (Auto) Urine Creatinine Urine Total Protein Coronavirus (PCR) Crossmatch 06/11/20 06/11/20 06/11/20 06:03 10:22 11:11 WBC RBC Hgb Hct MCHC RDW Lymph % (Auto) [place] % (Auto) Eos % (Auto) Lymph # [place] # Seg Neutrophils % Seg Neuts % (Manual) Lymphocytes % (Manual) Seg Neutrophils # Seg Neutrophils # Man Lymphocytes # (Manual) Monocytes # (Manual) D-Dimer Heparin Anti-Xa Level 0.26 L ABG pH POC ABG pCO2 POC ABG pO2 ABG pO2 ABG HCO3 ABG O2 Saturation ABG Base Excess ABG Hemoglobin 9.6 L ABG Oxyhemoglobin VBG pH Oxyhemoglobin Sodium Potassium Chloride Carbon Dioxide BUN Creatinine Glucose POC Glucose 114 H Lactic Acid Calcium Ferritin AST Alkaline Phosphatase Lactate Dehydrogenase Total Creatine Kinase CK-MB (CK-2) C-Reactive Protein Total Protein Albumin Urine WBC (Auto) Urine Creatinine Urine Total Protein Coronavirus (PCR) Crossmatch 06/11/20 06/11/20 06/12/20 12:24 17:24 00:21 WBC RBC Hgb Hct MCHC RDW Lymph % (Auto) [place] % (Auto) Eos % (Auto) Lymph # [place] # Seg Neutrophils % Seg Neuts % (Manual) Lymphocytes % (Manual) Seg Neutrophils # Seg Neutrophils # Man Lymphocytes # (Manual) Monocytes # (Manual) D-Dimer Heparin Anti-Xa Level ABG pH POC ABG pCO2 POC ABG pO2 ABG pO2 ABG HCO3 ABG O2 Saturation ABG Base Excess ABG Hemoglobin ABG Oxyhemoglobin VBG pH Oxyhemoglobin Sodium Potassium Chloride Carbon Dioxide BUN Creatinine Glucose POC Glucose 119 H 126 H 117 H Lactic Acid Calcium Ferritin AST Alkaline Phosphatase Lactate Dehydrogenase Total Creatine Kinase CK-MB (CK-2) C-Reactive Protein Total Protein Albumin Urine WBC (Auto) Urine Creatinine Urine Total Protein Coronavirus (PCR) Crossmatch 06/12/20 06/12/20 06/12/20 02:46 02:46 05:46 WBC 13.2 H RBC 2.83 L Hgb 8.3 L Hct 24.3 L MCHC RDW 16.6 H Lymph % (Auto) 6.2 L [place] % (Auto) 9.5 H Eos % (Auto) Lymph # 0.8 L [place] # 1.3 H Seg Neutrophils % 81.9 H Seg Neuts % (Manual) Lymphocytes % (Manual) Seg Neutrophils # 10.9 H Seg Neutrophils # Man Lymphocytes # (Manual) Monocytes # (Manual) D-Dimer Heparin Anti-Xa Level ABG pH POC ABG pCO2 POC ABG pO2 ABG pO2 ABG HCO3 ABG O2 Saturation ABG Base Excess ABG Hemoglobin ABG Oxyhemoglobin VBG pH Oxyhemoglobin Sodium Potassium 3.5 L Chloride Carbon Dioxide BUN 77 H Creatinine 1.3 H Glucose POC Glucose 132 H Lactic Acid Calcium 8.3 L Ferritin AST Alkaline Phosphatase Lactate Dehydrogenase Total Creatine Kinase CK-MB (CK-2) C-Reactive Protein Total Protein Albumin Urine WBC (Auto) Urine Creatinine Urine Total Protein Coronavirus (PCR) Crossmatch 06/12/20 06/12/20 06/12/20 09:20 12:16 17:48 WBC RBC Hgb Hct MCHC RDW Lymph % (Auto) [place] % (Auto) Eos % (Auto) Lymph # [place] # Seg Neutrophils % Seg Neuts % (Manual) Lymphocytes % (Manual) Seg Neutrophils # Seg Neutrophils # Man Lymphocytes # (Manual) Monocytes # (Manual) D-Dimer Heparin Anti-Xa Level ABG pH POC ABG pCO2 POC ABG pO2 ABG pO2 91.1 H ABG HCO3 ABG O2 Saturation ABG Base Excess ABG Hemoglobin ABG Oxyhemoglobin VBG pH Oxyhemoglobin 94.8 L Sodium Potassium Chloride Carbon Dioxide BUN Creatinine Glucose POC Glucose 167 H 182 H Lactic Acid Calcium Ferritin AST Alkaline Phosphatase Lactate Dehydrogenase Total Creatine Kinase CK-MB (CK-2) C-Reactive Protein Total Protein Albumin Urine WBC (Auto) Urine Creatinine Urine Total Protein Coronavirus (PCR) Crossmatch 06/13/20 06/13/20 06/13/20 00:08 05:37 09:09 WBC RBC Hgb Hct MCHC RDW Lymph % (Auto) [place] % (Auto) Eos % (Auto) Lymph # [place] # Seg Neutrophils % Seg Neuts % (Manual) Lymphocytes % (Manual) Seg Neutrophils # Seg Neutrophils # Man Lymphocytes # (Manual) Monocytes # (Manual) D-Dimer Heparin Anti-Xa Level 0.86 H ABG pH POC ABG pCO2 POC ABG pO2 ABG pO2 ABG HCO3 ABG O2 Saturation ABG Base Excess ABG Hemoglobin ABG Oxyhemoglobin VBG pH Oxyhemoglobin Sodium Potassium Chloride Carbon Dioxide BUN Creatinine Glucose POC Glucose 142 H 119 H Lactic Acid Calcium Ferritin AST Alkaline Phosphatase Lactate Dehydrogenase Total Creatine Kinase CK-MB (CK-2) C-Reactive Protein Total Protein Albumin Urine WBC (Auto) Urine Creatinine Urine Total Protein Coronavirus (PCR) Crossmatch 06/13/20 06/13/20 06/13/20 12:28 17:55 21:17 WBC RBC Hgb Hct MCHC RDW Lymph % (Auto) [place] % (Auto) Eos % (Auto) Lymph # [place] # Seg Neutrophils % Seg Neuts % (Manual) Lymphocytes % (Manual) Seg Neutrophils # Seg Neutrophils # Man Lymphocytes # (Manual) Monocytes # (Manual) D-Dimer Heparin Anti-Xa Level ABG pH POC ABG pCO2 POC ABG pO2 ABG pO2 ABG HCO3 ABG O2 Saturation ABG Base Excess ABG Hemoglobin ABG Oxyhemoglobin VBG pH Oxyhemoglobin Sodium Potassium Chloride Carbon Dioxide BUN 61 H Creatinine Glucose 131 H POC Glucose 165 H 174 H Lactic Acid Calcium Ferritin AST Alkaline Phosphatase Lactate Dehydrogenase Total Creatine Kinase CK-MB (CK-2) C-Reactive Protein Total Protein Albumin Urine WBC (Auto) Urine Creatinine Urine Total Protein Coronavirus (PCR) Crossmatch 06/13/20 06/13/20 06/14/20 21:17 23:50 05:34 WBC RBC Hgb Hct MCHC RDW Lymph % (Auto) [place] % (Auto) Eos % (Auto) Lymph # [place] # Seg Neutrophils % Seg Neuts % (Manual) Lymphocytes % (Manual) Seg Neutrophils # Seg Neutrophils # Man Lymphocytes # (Manual) Monocytes # (Manual) D-Dimer Heparin Anti-Xa Level 0.72 H ABG pH POC ABG pCO2 POC ABG pO2 ABG pO2 ABG HCO3 ABG O2 Saturation ABG Base Excess ABG Hemoglobin ABG Oxyhemoglobin VBG pH Oxyhemoglobin Sodium 146 H Potassium Chloride 107.6 H Carbon Dioxide BUN 61 H Creatinine 1.3 H Glucose 135 H POC Glucose 146 H Lactic Acid Calcium Ferritin AST Alkaline Phosphatase Lactate Dehydrogenase Total Creatine Kinase CK-MB (CK-2) C-Reactive Protein Total Protein Albumin Urine WBC (Auto) Urine Creatinine Urine Total Protein Coronavirus (PCR) Crossmatch 06/14/20 06/14/20 06/14/20 06:11 09:28 11:30 WBC RBC Hgb Hct MCHC RDW Lymph % (Auto) [place] % (Auto) Eos % (Auto) Lymph # [place] # Seg Neutrophils % Seg Neuts % (Manual) Lymphocytes % (Manual) Seg Neutrophils # Seg Neutrophils # Man Lymphocytes # (Manual) Monocytes # (Manual) D-Dimer Heparin Anti-Xa Level 0.90 H ABG pH POC ABG pCO2 POC ABG pO2 ABG pO2 ABG HCO3 ABG O2 Saturation ABG Base Excess ABG Hemoglobin ABG Oxyhemoglobin VBG pH Oxyhemoglobin Sodium Potassium Chloride Carbon Dioxide BUN Creatinine Glucose POC Glucose 141 H 186 H Lactic Acid Calcium Ferritin AST Alkaline Phosphatase Lactate Dehydrogenase Total Creatine Kinase CK-MB (CK-2) C-Reactive Protein Total Protein Albumin Urine WBC (Auto) Urine Creatinine Urine Total Protein Coronavirus (PCR) Crossmatch 06/14/20 06/14/20 06/14/20 16:07 18:16 23:51 WBC RBC Hgb Hct MCHC RDW Lymph % (Auto) [place] % (Auto) Eos % (Auto) Lymph # [place] # Seg Neutrophils % Seg Neuts % (Manual) Lymphocytes % (Manual) Seg Neutrophils # Seg Neutrophils # Man Lymphocytes # (Manual) Monocytes # (Manual) D-Dimer Heparin Anti-Xa Level 0.82 H ABG pH POC ABG pCO2 POC ABG pO2 ABG pO2 ABG HCO3 ABG O2 Saturation ABG Base Excess ABG Hemoglobin ABG Oxyhemoglobin VBG pH Oxyhemoglobin Sodium Potassium Chloride Carbon Dioxide BUN Creatinine Glucose POC Glucose 106 H 154 H Lactic Acid Calcium Ferritin AST Alkaline Phosphatase Lactate Dehydrogenase Total Creatine Kinase CK-MB (CK-2) C-Reactive Protein Total Protein Albumin Urine WBC (Auto) Urine Creatinine Urine Total Protein Coronavirus (PCR) Crossmatch 06/15/20 06/15/20 06/15/20 04:24 04:24 05:59 WBC RBC 2.75 L Hgb 7.9 L Hct 24.0 L MCHC RDW 16.4 H Lymph % (Auto) 12.9 L [place] % (Auto) 8.7 H Eos % (Auto) 4.6 H Lymph # 1.1 L [place] # Seg Neutrophils % 73.2 H Seg Neuts % (Manual) Lymphocytes % (Manual) Seg Neutrophils # Seg Neutrophils # Man Lymphocytes # (Manual) Monocytes # (Manual) D-Dimer Heparin Anti-Xa Level ABG pH POC ABG pCO2 POC ABG pO2 ABG pO2 ABG HCO3 ABG O2 Saturation ABG Base Excess ABG Hemoglobin ABG Oxyhemoglobin VBG pH Oxyhemoglobin Sodium Potassium 3.4 L Chloride Carbon Dioxide BUN 55 H Creatinine 1.3 H Glucose 142 H POC Glucose 131 H Lactic Acid Calcium Ferritin AST Alkaline Phosphatase Lactate Dehydrogenase Total Creatine Kinase CK-MB (CK-2) C-Reactive Protein Total Protein Albumin Urine WBC (Auto) Urine Creatinine Urine Total Protein Coronavirus (PCR) Crossmatch 06/15/20 06/15/20 06/16/20 12:33 17:07 00:22 WBC RBC Hgb Hct MCHC RDW Lymph % (Auto) [place] % (Auto) Eos % (Auto) Lymph # [place] # Seg Neutrophils % Seg Neuts % (Manual) Lymphocytes % (Manual) Seg Neutrophils # Seg Neutrophils # Man Lymphocytes # (Manual) Monocytes # (Manual) D-Dimer Heparin Anti-Xa Level 0.21 L ABG pH POC ABG pCO2 POC ABG pO2 ABG pO2 ABG HCO3 ABG O2 Saturation ABG Base Excess ABG Hemoglobin ABG Oxyhemoglobin VBG pH Oxyhemoglobin Sodium Potassium Chloride Carbon Dioxide BUN Creatinine Glucose POC Glucose 180 H 185 H Lactic Acid Calcium Ferritin AST Alkaline Phosphatase Lactate Dehydrogenase Total Creatine Kinase CK-MB (CK-2) C-Reactive Protein Total Protein Albumin Urine WBC (Auto) Urine Creatinine Urine Total Protein Coronavirus (PCR) Crossmatch 06/16/20 06/16/20 06/16/20 01:45 08:06 09:15 WBC RBC Hgb Hct MCHC RDW Lymph % (Auto) [place] % (Auto) Eos % (Auto) Lymph # [place] # Seg Neutrophils % Seg Neuts % (Manual) Lymphocytes % (Manual) Seg Neutrophils # Seg Neutrophils # Man Lymphocytes # (Manual) Monocytes # (Manual) D-Dimer Heparin Anti-Xa Level ABG pH POC ABG pCO2 POC ABG pO2 ABG pO2 ABG HCO3 ABG O2 Saturation ABG Base Excess ABG Hemoglobin ABG Oxyhemoglobin VBG pH Oxyhemoglobin Sodium Potassium Chloride Carbon Dioxide BUN 49 H Creatinine Glucose 154 H POC Glucose 140 H 171 H Lactic Acid Calcium Ferritin AST Alkaline Phosphatase Lactate Dehydrogenase Total Creatine Kinase CK-MB (CK-2) C-Reactive Protein Total Protein Albumin Urine WBC (Auto) Urine Creatinine Urine Total Protein Coronavirus (PCR) Crossmatch 06/16/20 06/16/20 06/16/20 10:46 12:33 17:54 WBC RBC Hgb Hct MCHC RDW Lymph % (Auto) [place] % (Auto) Eos % (Auto) Lymph # [place] # Seg Neutrophils % Seg Neuts % (Manual) Lymphocytes % (Manual) Seg Neutrophils # Seg Neutrophils # Man Lymphocytes # (Manual) Monocytes # (Manual) D-Dimer Heparin Anti-Xa Level 0.12 L ABG pH POC ABG pCO2 POC ABG pO2 ABG pO2 ABG HCO3 ABG O2 Saturation ABG Base Excess ABG Hemoglobin ABG Oxyhemoglobin VBG pH Oxyhemoglobin Sodium Potassium Chloride Carbon Dioxide BUN Creatinine Glucose POC Glucose 166 H 151 H Lactic Acid Calcium Ferritin AST Alkaline Phosphatase Lactate Dehydrogenase Total Creatine Kinase CK-MB (CK-2) C-Reactive Protein Total Protein Albumin Urine WBC (Auto) Urine Creatinine Urine Total Protein Coronavirus (PCR) Crossmatch 06/16/20 06/17/20 06/17/20 18:47 00:00 02:19 WBC RBC Hgb Hct MCHC RDW Lymph % (Auto) [place] % (Auto) Eos % (Auto) Lymph # [place] # Seg Neutrophils % Seg Neuts % (Manual) Lymphocytes % (Manual) Seg Neutrophils # Seg Neutrophils # Man Lymphocytes # (Manual) Monocytes # (Manual) D-Dimer Heparin Anti-Xa Level 0.73 H 0.77 H ABG pH POC ABG pCO2 POC ABG pO2 ABG pO2 ABG HCO3 ABG O2 Saturation ABG Base Excess ABG Hemoglobin ABG Oxyhemoglobin VBG pH Oxyhemoglobin Sodium Potassium Chloride Carbon Dioxide BUN Creatinine Glucose POC Glucose 139 H Lactic Acid Calcium Ferritin AST Alkaline Phosphatase Lactate Dehydrogenase Total Creatine Kinase CK-MB (CK-2) C-Reactive Protein Total Protein Albumin Urine WBC (Auto) Urine Creatinine Urine Total Protein Coronavirus (PCR) Crossmatch 06/17/20 06/17/20 06/17/20 06:07 11:42 16:43 WBC RBC Hgb Hct MCHC RDW Lymph % (Auto) [place] % (Auto) Eos % (Auto) Lymph # [place] # Seg Neutrophils % Seg Neuts % (Manual) Lymphocytes % (Manual) Seg Neutrophils # Seg Neutrophils # Man Lymphocytes # (Manual) Monocytes # (Manual) D-Dimer Heparin Anti-Xa Level 0.73 H ABG pH POC ABG pCO2 POC ABG pO2 ABG pO2 ABG HCO3 ABG O2 Saturation ABG Base Excess ABG Hemoglobin ABG Oxyhemoglobin VBG pH Oxyhemoglobin Sodium Potassium Chloride Carbon Dioxide BUN Creatinine Glucose POC Glucose 169 H 169 H Lactic Acid Calcium Ferritin AST Alkaline Phosphatase Lactate Dehydrogenase Total Creatine Kinase CK-MB (CK-2) C-Reactive Protein Total Protein Albumin Urine WBC (Auto) Urine Creatinine Urine Total Protein Coronavirus (PCR) Crossmatch 06/17/20 06/17/20 06/17/20 18:18 23:08 23:16 WBC RBC Hgb Hct MCHC RDW Lymph % (Auto) [place] % (Auto) Eos % (Auto) Lymph # [place] # Seg Neutrophils % Seg Neuts % (Manual) Lymphocytes % (Manual) Seg Neutrophils # Seg Neutrophils # Man Lymphocytes # (Manual) Monocytes # (Manual) D-Dimer Heparin Anti-Xa Level 0.71 H ABG pH POC ABG pCO2 POC ABG pO2 ABG pO2 ABG HCO3 ABG O2 Saturation ABG Base Excess ABG Hemoglobin ABG Oxyhemoglobin VBG pH Oxyhemoglobin Sodium Potassium Chloride Carbon Dioxide BUN Creatinine Glucose POC Glucose 159 H 134 H Lactic Acid Calcium Ferritin AST Alkaline Phosphatase Lactate Dehydrogenase Total Creatine Kinase CK-MB (CK-2) C-Reactive Protein Total Protein Albumin Urine WBC (Auto) Urine Creatinine Urine Total Protein Coronavirus (PCR) Crossmatch 06/18/20 06/18/20 06/18/20 04:42 05:52 11:50 WBC RBC Hgb Hct MCHC RDW Lymph % (Auto) [place] % (Auto) Eos % (Auto) Lymph # [place] # Seg Neutrophils % Seg Neuts % (Manual) Lymphocytes % (Manual) Seg Neutrophils # Seg Neutrophils # Man Lymphocytes # (Manual) Monocytes # (Manual) D-Dimer Heparin Anti-Xa Level ABG pH POC ABG pCO2 POC ABG pO2 ABG pO2 ABG HCO3 ABG O2 Saturation ABG Base Excess ABG Hemoglobin ABG Oxyhemoglobin VBG pH Oxyhemoglobin Sodium Potassium Chloride Carbon Dioxide BUN 44 H Creatinine Glucose 115 H POC Glucose 171 H 167 H Lactic Acid Calcium Ferritin AST Alkaline Phosphatase Lactate Dehydrogenase Total Creatine Kinase CK-MB (CK-2) C-Reactive Protein Total Protein Albumin Urine WBC (Auto) Urine Creatinine Urine Total Protein Coronavirus (PCR) Crossmatch 06/18/20 06/19/20 06/19/20 23:46 05:48 07:52 WBC RBC Hgb Hct MCHC RDW Lymph % (Auto) [place] % (Auto) Eos % (Auto) Lymph # [place] # Seg Neutrophils % Seg Neuts % (Manual) Lymphocytes % (Manual) Seg Neutrophils # Seg Neutrophils # Man Lymphocytes # (Manual) Monocytes # (Manual) D-Dimer Heparin Anti-Xa Level ABG pH POC ABG pCO2 POC ABG pO2 ABG pO2 ABG HCO3 ABG O2 Saturation ABG Base Excess ABG Hemoglobin ABG Oxyhemoglobin VBG pH Oxyhemoglobin Sodium Potassium Chloride Carbon Dioxide BUN Creatinine Glucose POC Glucose 130 H 207 H 175 H Lactic Acid Calcium Ferritin AST Alkaline Phosphatase Lactate Dehydrogenase Total Creatine Kinase CK-MB (CK-2) C-Reactive Protein Total Protein Albumin Urine WBC (Auto) Urine Creatinine Urine Total Protein Coronavirus (PCR) Crossmatch 06/19/20 06/19/20 06/20/20 11:42 22:54 05:17 WBC RBC Hgb Hct MCHC RDW Lymph % (Auto) [place] % (Auto) Eos % (Auto) Lymph # [place] # Seg Neutrophils % Seg Neuts % (Manual) Lymphocytes % (Manual) Seg Neutrophils # Seg Neutrophils # Man Lymphocytes # (Manual) Monocytes # (Manual) D-Dimer Heparin Anti-Xa Level ABG pH POC ABG pCO2 POC ABG pO2 ABG pO2 ABG HCO3 ABG O2 Saturation ABG Base Excess ABG Hemoglobin ABG Oxyhemoglobin VBG pH Oxyhemoglobin Sodium Potassium Chloride Carbon Dioxide BUN Creatinine Glucose POC Glucose 166 H 135 H 218 H Lactic Acid Calcium Ferritin AST Alkaline Phosphatase Lactate Dehydrogenase Total Creatine Kinase CK-MB (CK-2) C-Reactive Protein Total Protein Albumin Urine WBC (Auto) Urine Creatinine Urine Total Protein Coronavirus (PCR) Crossmatch 06/20/20 06/20/20 06/20/20 12:04 16:25 16:35 WBC RBC Hgb Hct MCHC RDW Lymph % (Auto) [place] % (Auto) Eos % (Auto) Lymph # [place] # Seg Neutrophils % Seg Neuts % (Manual) Lymphocytes % (Manual) Seg Neutrophils # Seg Neutrophils # Man Lymphocytes # (Manual) Monocytes # (Manual) D-Dimer Heparin Anti-Xa Level ABG pH POC ABG pCO2 POC ABG pO2 ABG pO2 59.6 L ABG HCO3 28.7 H ABG O2 Saturation 93.5 L ABG Base Excess 3.4 H ABG Hemoglobin 7.2 L ABG Oxyhemoglobin VBG pH Oxyhemoglobin 91.3 L Sodium Potassium Chloride Carbon Dioxide BUN Creatinine Glucose POC Glucose 194 H 137 H Lactic Acid Calcium Ferritin AST Alkaline Phosphatase Lactate Dehydrogenase Total Creatine Kinase CK-MB (CK-2) C-Reactive Protein Total Protein Albumin Urine WBC (Auto) Urine Creatinine Urine Total Protein Coronavirus (PCR) Crossmatch 06/20/20 06/21/20 06/21/20 23:59 06:25 12:01 WBC RBC Hgb Hct MCHC RDW Lymph % (Auto) [place] % (Auto) Eos % (Auto) Lymph # [place] # Seg Neutrophils % Seg Neuts % (Manual) Lymphocytes % (Manual) Seg Neutrophils # Seg Neutrophils # Man Lymphocytes # (Manual) Monocytes # (Manual) D-Dimer Heparin Anti-Xa Level ABG pH POC ABG pCO2 POC ABG pO2 ABG pO2 ABG HCO3 ABG O2 Saturation ABG Base Excess ABG Hemoglobin ABG Oxyhemoglobin VBG pH Oxyhemoglobin Sodium Potassium Chloride Carbon Dioxide BUN Creatinine Glucose POC Glucose 156 H 177 H 195 H Lactic Acid Calcium Ferritin AST Alkaline Phosphatase Lactate Dehydrogenase Total Creatine Kinase CK-MB (CK-2) C-Reactive Protein Total Protein Albumin Urine WBC (Auto) Urine Creatinine Urine Total Protein Coronavirus (PCR) Crossmatch 06/21/20 06/21/20 06/22/20 17:04 21:51 05:06 WBC RBC Hgb Hct MCHC RDW Lymph % (Auto) [place] % (Auto) Eos % (Auto) Lymph # [place] # Seg Neutrophils % Seg Neuts % (Manual) Lymphocytes % (Manual) Seg Neutrophils # Seg Neutrophils # Man Lymphocytes # (Manual) Monocytes # (Manual) D-Dimer Heparin Anti-Xa Level ABG pH POC ABG pCO2 POC ABG pO2 ABG pO2 ABG HCO3 ABG O2 Saturation ABG Base Excess ABG Hemoglobin ABG Oxyhemoglobin VBG pH Oxyhemoglobin Sodium Potassium Chloride Carbon Dioxide BUN Creatinine Glucose POC Glucose 156 H 154 H 167 H Lactic Acid Calcium Ferritin AST Alkaline Phosphatase Lactate Dehydrogenase Total Creatine Kinase CK-MB (CK-2) C-Reactive Protein Total Protein Albumin Urine WBC (Auto) Urine Creatinine Urine Total Protein Coronavirus (PCR) Crossmatch 06/22/20 06/22/20 06/22/20 11:20 15:27 16:58 WBC RBC Hgb Hct MCHC RDW Lymph % (Auto) [place] % (Auto) Eos % (Auto) Lymph # [place] # Seg Neutrophils % Seg Neuts % (Manual) Lymphocytes % (Manual) Seg Neutrophils # Seg Neutrophils # Man Lymphocytes # (Manual) Monocytes # (Manual) D-Dimer Heparin Anti-Xa Level ABG pH 7.206 L POC ABG pCO2 79.9 H POC ABG pO2 ABG pO2 ABG HCO3 ABG O2 Saturation ABG Base Excess ABG Hemoglobin 8.3 L ABG Oxyhemoglobin VBG pH Oxyhemoglobin Sodium Potassium Chloride Carbon Dioxide BUN Creatinine Glucose POC Glucose 181 H 230 H Lactic Acid Calcium Ferritin AST Alkaline Phosphatase Lactate Dehydrogenase Total Creatine Kinase CK-MB (CK-2) C-Reactive Protein Total Protein Albumin Urine WBC (Auto) Urine Creatinine Urine Total Protein Coronavirus (PCR) Crossmatch 06/22/20 06/23/20 06/23/20 22:26 05:49 05:49 WBC RBC 2.58 L Hgb 7.4 L Hct 23.2 L MCHC RDW 17.0 H Lymph % (Auto) [place] % (Auto) 11.2 H Eos % (Auto) Lymph # 1.0 L [place] # Seg Neutrophils % Seg Neuts % (Manual) Lymphocytes % (Manual) Seg Neutrophils # Seg Neutrophils # Man Lymphocytes # (Manual) Monocytes # (Manual) D-Dimer Heparin Anti-Xa Level ABG pH POC ABG pCO2 POC ABG pO2 ABG pO2 ABG HCO3 ABG O2 Saturation ABG Base Excess ABG Hemoglobin ABG Oxyhemoglobin VBG pH Oxyhemoglobin Sodium Potassium Chloride Carbon Dioxide BUN 68 H Creatinine 2.4 H Glucose 198 H POC Glucose 195 H Lactic Acid Calcium Ferritin AST Alkaline Phosphatase Lactate Dehydrogenase Total Creatine Kinase CK-MB (CK-2) C-Reactive Protein Total Protein Albumin Urine WBC (Auto) Urine Creatinine Urine Total Protein Coronavirus (PCR) Crossmatch 06/23/20 06/23/20 06/23/20 05:50 12:29 12:34 WBC RBC Hgb Hct MCHC RDW Lymph % (Auto) [place] % (Auto) Eos % (Auto) Lymph # [place] # Seg Neutrophils % Seg Neuts % (Manual) Lymphocytes % (Manual) Seg Neutrophils # Seg Neutrophils # Man Lymphocytes # (Manual) Monocytes # (Manual) D-Dimer Heparin Anti-Xa Level ABG pH POC ABG pCO2 54.7 H POC ABG pO2 68.8 L ABG pO2 ABG HCO3 ABG O2 Saturation ABG Base Excess ABG Hemoglobin 9.8 L ABG Oxyhemoglobin 92.6 L VBG pH Oxyhemoglobin Sodium Potassium Chloride Carbon Dioxide BUN Creatinine Glucose POC Glucose 202 H 218 H Lactic Acid Calcium Ferritin AST Alkaline Phosphatase Lactate Dehydrogenase Total Creatine Kinase CK-MB (CK-2) C-Reactive Protein Total Protein Albumin Urine WBC (Auto) Urine Creatinine Urine Total Protein Coronavirus (PCR) Crossmatch 06/23/20 06/23/20 06/24/20 16:02 22:22 01:06 WBC RBC Hgb Hct MCHC RDW Lymph % (Auto) [place] % (Auto) Eos % (Auto) Lymph # [place] # Seg Neutrophils % Seg Neuts % (Manual) Lymphocytes % (Manual) Seg Neutrophils # Seg Neutrophils # Man Lymphocytes # (Manual) Monocytes # (Manual) D-Dimer Heparin Anti-Xa Level ABG pH POC ABG pCO2 POC ABG pO2 ABG pO2 ABG HCO3 ABG O2 Saturation ABG Base Excess ABG Hemoglobin ABG Oxyhemoglobin VBG pH Oxyhemoglobin Sodium Potassium Chloride Carbon Dioxide BUN Creatinine Glucose POC Glucose 190 H 166 H 171 H Lactic Acid Calcium Ferritin AST Alkaline Phosphatase Lactate Dehydrogenase Total Creatine Kinase CK-MB (CK-2) C-Reactive Protein Total Protein Albumin Urine WBC (Auto) Urine Creatinine Urine Total Protein Coronavirus (PCR) Crossmatch 06/24/20 06/24/20 06/24/20 04:48 05:35 11:48 WBC RBC Hgb Hct MCHC RDW Lymph % (Auto) [place] % (Auto) Eos % (Auto) Lymph # [place] # Seg Neutrophils % Seg Neuts % (Manual) Lymphocytes % (Manual) Seg Neutrophils # Seg Neutrophils # Man Lymphocytes # (Manual) Monocytes # (Manual) D-Dimer Heparin Anti-Xa Level ABG pH POC ABG pCO2 POC ABG pO2 ABG pO2 ABG HCO3 ABG O2 Saturation ABG Base Excess ABG Hemoglobin ABG Oxyhemoglobin VBG pH Oxyhemoglobin Sodium Potassium Chloride Carbon Dioxide BUN 75 H Creatinine 2.6 H Glucose 179 H POC Glucose 172 H 153 H Lactic Acid Calcium Ferritin AST Alkaline Phosphatase Lactate Dehydrogenase Total Creatine Kinase CK-MB (CK-2) C-Reactive Protein Total Protein Albumin Urine WBC (Auto) Urine Creatinine Urine Total Protein Coronavirus (PCR) Crossmatch 06/24/20 06/24/20 06/25/20 16:38 21:52 12:00 WBC RBC Hgb Hct MCHC RDW Lymph % (Auto) [place] % (Auto) Eos % (Auto) Lymph # [place] # Seg Neutrophils % Seg Neuts % (Manual) Lymphocytes % (Manual) Seg Neutrophils # Seg Neutrophils # Man Lymphocytes # (Manual) Monocytes # (Manual) D-Dimer Heparin Anti-Xa Level ABG pH POC ABG pCO2 POC ABG pO2 ABG pO2 ABG HCO3 ABG O2 Saturation ABG Base Excess ABG Hemoglobin ABG Oxyhemoglobin VBG pH Oxyhemoglobin Sodium Potassium Chloride Carbon Dioxide BUN Creatinine Glucose POC Glucose 123 H 115 H 203 H Lactic Acid Calcium Ferritin AST Alkaline Phosphatase Lactate Dehydrogenase Total Creatine Kinase CK-MB (CK-2) C-Reactive Protein Total Protein Albumin Urine WBC (Auto) Urine Creatinine Urine Total Protein Coronavirus (PCR) Crossmatch 06/25/20 06/25/20 06/25/20 15:43 16:37 23:02 WBC RBC Hgb Hct MCHC RDW Lymph % (Auto) [place] % (Auto) Eos % (Auto) Lymph # [place] # Seg Neutrophils % Seg Neuts % (Manual) Lymphocytes % (Manual) Seg Neutrophils # Seg Neutrophils # Man Lymphocytes # (Manual) Monocytes # (Manual) D-Dimer Heparin Anti-Xa Level ABG pH POC ABG pCO2 POC ABG pO2 ABG pO2 ABG HCO3 ABG O2 Saturation ABG Base Excess ABG Hemoglobin ABG Oxyhemoglobin VBG pH Oxyhemoglobin Sodium Potassium Chloride Carbon Dioxide BUN 71 H Creatinine 1.8 H Glucose 170 H POC Glucose 191 H 126 H Lactic Acid Calcium 8.2 L Ferritin AST Alkaline Phosphatase Lactate Dehydrogenase Total Creatine Kinase CK-MB (CK-2) C-Reactive Protein Total Protein Albumin Urine WBC (Auto) Urine Creatinine Urine Total Protein Coronavirus (PCR) Crossmatch 06/26/20 06/26/20 06/26/20 06:34 06:34 09:27 WBC RBC 2.41 L Hgb 6.9 L Hct 21.5 L MCHC RDW 16.7 H Lymph % (Auto) 10.9 L [place] % (Auto) 9.6 H Eos % (Auto) Lymph # 0.7 L [place] # Seg Neutrophils % 75.4 H Seg Neuts % (Manual) Lymphocytes % (Manual) Seg Neutrophils # Seg Neutrophils # Man Lymphocytes # (Manual) Monocytes # (Manual) D-Dimer Heparin Anti-Xa Level ABG pH POC ABG pCO2 POC ABG pO2 ABG pO2 ABG HCO3 ABG O2 Saturation ABG Base Excess ABG Hemoglobin ABG Oxyhemoglobin VBG pH Oxyhemoglobin Sodium Potassium Chloride Carbon Dioxide BUN 77 H Creatinine 1.9 H Glucose 190 H POC Glucose Lactic Acid Calcium Ferritin AST Alkaline Phosphatase Lactate Dehydrogenase Total Creatine Kinase CK-MB (CK-2) C-Reactive Protein Total Protein Albumin Urine WBC (Auto) Urine Creatinine Urine Total Protein Coronavirus (PCR) Crossmatch See Detail 06/26/20 06/26/20 06/26/20 12:15 16:28 17:28 WBC RBC Hgb Hct MCHC RDW Lymph % (Auto) [place] % (Auto) Eos % (Auto) Lymph # [place] # Seg Neutrophils % Seg Neuts % (Manual) Lymphocytes % (Manual) Seg Neutrophils # Seg Neutrophils # Man Lymphocytes # (Manual) Monocytes # (Manual) D-Dimer Heparin Anti-Xa Level ABG pH POC ABG pCO2 POC ABG pO2 ABG pO2 ABG HCO3 ABG O2 Saturation ABG Base Excess ABG Hemoglobin ABG Oxyhemoglobin VBG pH Oxyhemoglobin Sodium Potassium Chloride Carbon Dioxide BUN Creatinine Glucose POC Glucose 187 H 149 H 189 H Lactic Acid Calcium Ferritin AST Alkaline Phosphatase Lactate Dehydrogenase Total Creatine Kinase CK-MB (CK-2) C-Reactive Protein Total Protein Albumin Urine WBC (Auto) Urine Creatinine Urine Total Protein Coronavirus (PCR) Crossmatch 06/26/20 06/26/20 06/26/20 18:30 18:30 18:30 WBC RBC 2.87 L Hgb 8.2 L Hct 25.9 L MCHC RDW 17.8 H Lymph % (Auto) [place] % (Auto) Eos % (Auto) Lymph # [place] # Seg Neutrophils % Seg Neuts % (Manual) 83.0 H Lymphocytes % (Manual) 8.0 L Seg Neutrophils # Seg Neutrophils # Man Lymphocytes # (Manual) 0.6 L Monocytes # (Manual) D-Dimer Heparin Anti-Xa Level ABG pH POC ABG pCO2 POC ABG pO2 ABG pO2 ABG HCO3 ABG O2 Saturation ABG Base Excess ABG Hemoglobin ABG Oxyhemoglobin VBG pH Oxyhemoglobin Sodium Potassium Chloride Carbon Dioxide BUN 80 H Creatinine 2.1 H Glucose 260 H POC Glucose Lactic Acid 4.30 H* Calcium 8.3 L Ferritin AST Alkaline Phosphatase Lactate Dehydrogenase Total Creatine Kinase CK-MB (CK-2) C-Reactive Protein Total Protein Albumin Urine WBC (Auto) Urine Creatinine Urine Total Protein Coronavirus (PCR) Crossmatch 06/26/20 06/27/20 06/27/20 18:50 01:00 04:29 WBC RBC Hgb Hct MCHC RDW Lymph % (Auto) [place] % (Auto) Eos % (Auto) Lymph # [place] # Seg Neutrophils % Seg Neuts % (Manual) Lymphocytes % (Manual) Seg Neutrophils # Seg Neutrophils # Man Lymphocytes # (Manual) Monocytes # (Manual) D-Dimer Heparin Anti-Xa Level ABG pH 7.296 L POC ABG pCO2 POC ABG pO2 ABG pO2 116.5 H 200.5 H ABG HCO3 28.4 H ABG O2 Saturation 99.3 H ABG Base Excess 3.7 H ABG Hemoglobin 5.6 L ABG Oxyhemoglobin VBG pH Oxyhemoglobin Sodium Potassium Chloride Carbon Dioxide BUN Creatinine Glucose POC Glucose 123 H Lactic Acid Calcium Ferritin AST Alkaline Phosphatase Lactate Dehydrogenase Total Creatine Kinase CK-MB (CK-2) C-Reactive Protein Total Protein Albumin Urine WBC (Auto) Urine Creatinine Urine Total Protein Coronavirus (PCR) Crossmatch 06/27/20 06/27/20 06/27/20 05:00 05:00 05:00 WBC RBC 2.75 L Hgb 7.9 L Hct 24.3 L MCHC RDW 17.1 H Lymph % (Auto) 8.5 L [place] % (Auto) 12.6 H Eos % (Auto) Lymph # 0.7 L [place] # 1.0 H Seg Neutrophils % 77.5 H Seg Neuts % (Manual) Lymphocytes % (Manual) Seg Neutrophils # Seg Neutrophils # Man Lymphocytes # (Manual) Monocytes # (Manual) D-Dimer Heparin Anti-Xa Level ABG pH POC ABG pCO2 POC ABG pO2 ABG pO2 ABG HCO3 ABG O2 Saturation ABG Base Excess ABG Hemoglobin ABG Oxyhemoglobin VBG pH Oxyhemoglobin Sodium Potassium Chloride Carbon Dioxide BUN 80 H Creatinine 2.0 H Glucose 129 H POC Glucose Lactic Acid 0.60 L Calcium 7.9 L Ferritin AST Alkaline Phosphatase Lactate Dehydrogenase Total Creatine Kinase CK-MB (CK-2) C-Reactive Protein Total Protein Albumin Urine WBC (Auto) Urine Creatinine Urine Total Protein Coronavirus (PCR) Crossmatch 06/27/20 06/27/20 06/27/20 05:23 13:46 17:25 WBC RBC Hgb Hct MCHC RDW Lymph % (Auto) [place] % (Auto) Eos % (Auto) Lymph # [place] # Seg Neutrophils % Seg Neuts % (Manual) Lymphocytes % (Manual) Seg Neutrophils # Seg Neutrophils # Man Lymphocytes # (Manual) Monocytes # (Manual) D-Dimer Heparin Anti-Xa Level ABG pH POC ABG pCO2 POC ABG pO2 ABG pO2 ABG HCO3 ABG O2 Saturation ABG Base Excess ABG Hemoglobin ABG Oxyhemoglobin VBG pH Oxyhemoglobin Sodium Potassium Chloride Carbon Dioxide BUN Creatinine Glucose POC Glucose 109 H 158 H 162 H Lactic Acid Calcium Ferritin AST Alkaline Phosphatase Lactate Dehydrogenase Total Creatine Kinase CK-MB (CK-2) C-Reactive Protein Total Protein Albumin Urine WBC (Auto) Urine Creatinine Urine Total Protein Coronavirus (PCR) Crossmatch 06/27/20 06/27/20 06/28/20 18:43 23:46 04:05 WBC RBC Hgb 7.7 L Hct 22.1 L MCHC RDW Lymph % (Auto) [place] % (Auto) Eos % (Auto) Lymph # [place] # Seg Neutrophils % Seg Neuts % (Manual) Lymphocytes % (Manual) Seg Neutrophils # Seg Neutrophils # Man Lymphocytes # (Manual) Monocytes # (Manual) D-Dimer Heparin Anti-Xa Level ABG pH POC ABG pCO2 POC ABG pO2 ABG pO2 102.7 H ABG HCO3 28.7 H ABG O2 Saturation ABG Base Excess 3.7 H ABG Hemoglobin ABG Oxyhemoglobin VBG pH Oxyhemoglobin Sodium Potassium Chloride Carbon Dioxide BUN Creatinine Glucose POC Glucose 142 H Lactic Acid Calcium Ferritin AST Alkaline Phosphatase Lactate Dehydrogenase Total Creatine Kinase CK-MB (CK-2) C-Reactive Protein Total Protein Albumin Urine WBC (Auto) Urine Creatinine Urine Total Protein Coronavirus (PCR) Crossmatch 06/28/20 06/28/20 06/28/20 09:47 09:47 12:02 WBC RBC 2.53 L Hgb 7.4 L Hct 22.2 L MCHC RDW 16.8 H Lymph % (Auto) [place] % (Auto) 13.5 H Eos % (Auto) Lymph # 1.1 L [place] # 1.0 H Seg Neutrophils % Seg Neuts % (Manual) Lymphocytes % (Manual) Seg Neutrophils # Seg Neutrophils # Man Lymphocytes # (Manual) Monocytes # (Manual) D-Dimer Heparin Anti-Xa Level ABG pH POC ABG pCO2 POC ABG pO2 ABG pO2 ABG HCO3 ABG O2 Saturation ABG Base Excess ABG Hemoglobin ABG Oxyhemoglobin VBG pH Oxyhemoglobin Sodium Potassium Chloride Carbon Dioxide BUN 80 H Creatinine 1.5 H Glucose 139 H POC Glucose 169 H Lactic Acid Calcium 7.9 L Ferritin AST Alkaline Phosphatase Lactate Dehydrogenase Total Creatine Kinase CK-MB (CK-2) C-Reactive Protein Total Protein 5.0 L Albumin 2.1 L Urine WBC (Auto) Urine Creatinine Urine Total Protein Coronavirus (PCR) Crossmatch 06/28/20 06/28/20 06/28/20 12:30 12:30 17:24 WBC RBC 2.38 L Hgb 7.3 L Hct 20.9 L MCHC 35 H RDW 16.7 H Lymph % (Auto) [place] % (Auto) Eos % (Auto) Lymph # [place] # Seg Neutrophils % Seg Neuts % (Manual) Lymphocytes % (Manual) Seg Neutrophils # Seg Neutrophils # Man Lymphocytes # (Manual) Monocytes # (Manual) D-Dimer Heparin Anti-Xa Level ABG pH POC ABG pCO2 POC ABG pO2 ABG pO2 ABG HCO3 ABG O2 Saturation ABG Base Excess ABG Hemoglobin ABG Oxyhemoglobin VBG pH Oxyhemoglobin Sodium Potassium Chloride Carbon Dioxide BUN 74 H Creatinine 1.5 H Glucose 143 H POC Glucose 173 H Lactic Acid Calcium 7.5 L Ferritin AST Alkaline Phosphatase Lactate Dehydrogenase Total Creatine Kinase CK-MB (CK-2) C-Reactive Protein Total Protein Albumin Urine WBC (Auto) Urine Creatinine Urine Total Protein Coronavirus (PCR) Crossmatch 06/29/20 06/29/20 06/29/20 00:02 03:54 04:38 WBC RBC 2.55 L Hgb 7.3 L Hct 22.4 L MCHC RDW 16.4 H Lymph % (Auto) 13.3 L [place] % (Auto) 12.5 H Eos % (Auto) Lymph # 1.1 L [place] # 1.0 H Seg Neutrophils % Seg Neuts % (Manual) Lymphocytes % (Manual) Seg Neutrophils # Seg Neutrophils # Man Lymphocytes # (Manual) Monocytes # (Manual) D-Dimer Heparin Anti-Xa Level ABG pH POC ABG pCO2 POC ABG pO2 ABG pO2 ABG HCO3 26.9 H ABG O2 Saturation ABG Base Excess ABG Hemoglobin 6.9 L ABG Oxyhemoglobin VBG pH Oxyhemoglobin Sodium Potassium Chloride Carbon Dioxide BUN Creatinine Glucose POC Glucose 142 H Lactic Acid Calcium Ferritin AST Alkaline Phosphatase Lactate Dehydrogenase Total Creatine Kinase CK-MB (CK-2) C-Reactive Protein Total Protein Albumin Urine WBC (Auto) Urine Creatinine Urine Total Protein Coronavirus (PCR) Crossmatch 06/29/20 06/29/20 06/29/20 04:38 05:38 12:25 WBC RBC Hgb Hct MCHC RDW Lymph % (Auto) [place] % (Auto) Eos % (Auto) Lymph # [place] # Seg Neutrophils % Seg Neuts % (Manual) Lymphocytes % (Manual) Seg Neutrophils # Seg Neutrophils # Man Lymphocytes # (Manual) Monocytes # (Manual) D-Dimer Heparin Anti-Xa Level ABG pH POC ABG pCO2 POC ABG pO2 ABG pO2 ABG HCO3 ABG O2 Saturation ABG Base Excess ABG Hemoglobin ABG Oxyhemoglobin VBG pH Oxyhemoglobin Sodium Potassium Chloride 107.8 H Carbon Dioxide BUN 72 H Creatinine 1.4 H Glucose 127 H POC Glucose 122 H 138 H Lactic Acid Calcium 7.4 L Ferritin AST Alkaline Phosphatase Lactate Dehydrogenase Total Creatine Kinase CK-MB (CK-2) C-Reactive Protein Total Protein Albumin Urine WBC (Auto) Urine Creatinine Urine Total Protein Coronavirus (PCR) Crossmatch 06/29/20 06/29/20 06/29/20 14:45 14:45 14:45 WBC RBC Hgb Hct MCHC RDW Lymph % (Auto) [place] % (Auto) Eos % (Auto) Lymph # [place] # Seg Neutrophils % Seg Neuts % (Manual) Lymphocytes % (Manual) Seg Neutrophils # Seg Neutrophils # Man Lymphocytes # (Manual) Monocytes # (Manual) D-Dimer 2310.15 H Heparin Anti-Xa Level ABG pH POC ABG pCO2 POC ABG pO2 ABG pO2 ABG HCO3 ABG O2 Saturation ABG Base Excess ABG Hemoglobin ABG Oxyhemoglobin VBG pH Oxyhemoglobin Sodium Potassium Chloride Carbon Dioxide BUN Creatinine Glucose POC Glucose Lactic Acid Calcium Ferritin 223.6 H AST Alkaline Phosphatase Lactate Dehydrogenase 367 H Total Creatine Kinase CK-MB (CK-2) C-Reactive Protein 3.60 H Total Protein Albumin Urine WBC (Auto) Urine Creatinine Urine Total Protein Coronavirus (PCR) Crossmatch 06/29/20 06/29/20 06/29/20 18:27 23:35 Unknown WBC RBC Hgb Hct MCHC RDW Lymph % (Auto) [place] % (Auto) Eos % (Auto) Lymph # [place] # Seg Neutrophils % Seg Neuts % (Manual) Lymphocytes % (Manual) Seg Neutrophils # Seg Neutrophils # Man Lymphocytes # (Manual) Monocytes # (Manual) D-Dimer Heparin Anti-Xa Level ABG pH POC ABG pCO2 POC ABG pO2 ABG pO2 ABG HCO3 ABG O2 Saturation ABG Base Excess ABG Hemoglobin ABG Oxyhemoglobin VBG pH Oxyhemoglobin Sodium Potassium Chloride Carbon Dioxide BUN Creatinine Glucose POC Glucose 112 H 140 H Lactic Acid Calcium Ferritin AST Alkaline Phosphatase Lactate Dehydrogenase Total Creatine Kinase CK-MB (CK-2) C-Reactive Protein Total Protein Albumin Urine WBC (Auto) Urine Creatinine Urine Total Protein Coronavirus (PCR) Positive A Crossmatch 06/30/20 06/30/20 06/30/20 04:10 04:10 06:09 WBC RBC 2.44 L Hgb 7.1 L Hct 21.5 L MCHC RDW 16.6 H Lymph % (Auto) 11.0 L [place] % (Auto) 10.8 H Eos % (Auto) Lymph # 0.9 L [place] # 0.9 H Seg Neutrophils % 73.7 H Seg Neuts % (Manual) Lymphocytes % (Manual) Seg Neutrophils # Seg Neutrophils # Man Lymphocytes # (Manual) Monocytes # (Manual) D-Dimer Heparin Anti-Xa Level ABG pH POC ABG pCO2 POC ABG pO2 ABG pO2 ABG HCO3 ABG O2 Saturation ABG Base Excess ABG Hemoglobin ABG Oxyhemoglobin VBG pH Oxyhemoglobin Sodium Potassium Chloride 109.1 H Carbon Dioxide BUN 74 H Creatinine 1.3 H Glucose 191 H POC Glucose 187 H Lactic Acid Calcium 7.8 L Ferritin AST Alkaline Phosphatase Lactate Dehydrogenase Total Creatine Kinase CK-MB (CK-2) C-Reactive Protein Total Protein Albumin Urine WBC (Auto) Urine Creatinine Urine Total Protein Coronavirus (PCR) Crossmatch Chest x-ray: image reviewed Allied health notes reviewed: RT
--- NOTE | 2020-06-30 12:12 | Progress Note ---
Assessment and Plan - Patient Problems (1) Acute kidney injury (AVANI) with acute tubular necrosis (ATN) Current Visit: Yes Status: Acute Plan to address problem: Renal function stabilizing, Cr down to 1.3, pt with good urine output. Follow-up electrolytes and renal function, cont supportive care for AVANI/ATN, maintain MAP > 65mmHg, avoid nephrotoxins, IV contrast (2) Pneumonia due to COVID-19 virus Current Visit: Yes Status: Acute Plan to address problem: Patient has completed 5 days of Remdesevir. Completed course of steroids. (3) Acute hypoxemic respiratory failure Current Visit: Yes Status: Acute Plan to address problem: Being managed by pulmonary. S/p Extubation 06/12, now reintubated on 06/26 s/p code blue. (4) Hyperkalemia Current Visit: Yes Status: Acute Plan to address problem: K normalized (5) Cardiac arrest Current Visit: Yes Status: Acute Plan to address problem: s/p ACLS with eventual ROSC (6) Cardiomyopathy Current Visit: No Status: Acute Qualifiers: Cardiomyopathy type: unspecified Qualified Code(s): I42.9 - Cardiomyopathy, unspecified (7) Type 2 diabetes mellitus with diabetic chronic kidney disease Current Visit: Yes Status: Acute Plan to address problem: DM management as per primary attending Subjective Date of service: 06/30/20 Principal diagnosis: Coffee Ground Emesis Interval history: Pt remains on vent support. non-oliguric with UOP > 1800ml/24h Objective - Exam Narrative Exam: Exam reviewed in chart d/t PPE preservation - Vital Signs Vital signs: Vital Signs - 12hr 06/30/20 06/30/20 06/30/20 01:00 02:00 03:00 Temperature Pulse Rate 73 75 76 Respiratory 19 18 17 Rate Respiratory Rate [Left Upper Hand] Blood Pressure 150/59 153/91 148/82 O2 Sat by Pulse 98 97 97 Oximetry 06/30/20 06/30/20 06/30/20 03:20 04:00 05:00 Temperature 99.6 F Pulse Rate 75 74 70 Respiratory 2 L 21 17 Rate Respiratory Rate [Left Upper Hand] Blood Pressure 153/91 144/58 147/58 O2 Sat by Pulse 97 99 99 Oximetry 06/30/20 06/30/20 06/30/20 06:00 07:01 08:00 Temperature Pulse Rate 71 69 73 Respiratory 20 20 18 Rate Respiratory Rate [Left Upper Hand] Blood Pressure 145/62 145/57 157/61 O2 Sat by Pulse 98 99 96 Oximetry 06/30/20 06/30/20 06/30/20 08:16 09:01 09:14 Temperature Pulse Rate 75 79 77 Respiratory 22 20 Rate Respiratory Rate [Left Upper Hand] Blood Pressure 157/61 148/68 148/68 O2 Sat by Pulse 97 96 Oximetry 06/30/20 06/30/20 10:00 11:00 Temperature Pulse Rate 78 75 Respiratory 20 19 Rate Respiratory 18 Rate [Left Upper Hand] Blood Pressure 133/55 145/58 O2 Sat by Pulse 96 96 Oximetry - Lab 06/30/20 04:10 06/30/20 04:10 Most recent lab results ABG pH 7.438 pH Units (7.350-7.450) 06/29/20 03:54 ABG pCO2 40.7 mm Hg 06/29/20 03:54 ABG pO2 89.2 mm Hg (80.0-90.0) 06/29/20 03:54 ABG HCO3 26.9 mmol/L (20.0-26.0) H 06/29/20 03:54 ABG O2 Saturation 97.2 % (95.0-99.0) 06/29/20 03:54 Calcium 7.8 mg/dL (8.4-10.2) L 06/30/20 04:10 Urine Creatinine 82.2 mg/dL (0.1-20.0) H 06/06/20 04:00 Urine Sodium 20 mmol/L 06/06/20 04:00 Urine Total Protein 196 mg/dL (5-11.8) H 06/06/20 04:00 Medications & Allergies - Medications Allergies/Adverse Reactions: Allergies No Known Allergies Allergy (Verified 01/21/20 12:28) Home Medications: Home Medications Medication Instructions Recorded Confirmed Last Taken Type AtorvaSTATin [Lipitor] 20 mg PO QHS 05/12/20 05/29/20 Unknown History lisinopriL [Zestril TAB] 40 mg PO QDAY 05/12/20 05/29/20 Unknown History metFORMIN [Glucophage] 850 mg PO BID 05/12/20 05/29/20 Unknown History Acetaminophen [Acetaminophen TAB] 650 mg PO Q4H PRN tablet 05/13/20 05/29/20 Unknown Rx Dicyclomine [Bentyl] 20 mg PO BID #20 tablet 05/13/20 05/29/20 Unknown Rx Famotidine [Pepcid] 20 mg PO BID #30 tablet 05/13/20 05/29/20 Unknown Rx carvediloL [Coreg] 6.25 mg PO BID #60 05/13/20 05/29/20 Unknown Rx Active Medications: Generic Name Dose Route Start Last Admin Trade Name Freq PRN Reason Stop Dose Admin Acetaminophen 650 mg 06/09/20 10:57 06/29/20 21:18 Tylenol FEEDTUBE 650 mg Q6H PRN Administration Fever >101 Amlodipine Besylate 10 mg 06/02/20 11:00 06/30/20 09:14 Amlodipine PO 10 mg DAILY NELSON Administration Lipase/Protease/Amylase 1 each 05/29/20 13:39 06/24/20 22:[address] 10,500 Unit FEEDTUBE 1 each PRN PRN Administration For Clogged Feeding Tube Carvedilol 12.5 mg 06/03/20 10:00 06/30/20 09:14 Coreg PO 12.5 mg BID NELSON Administration Clonidine HCl 0.2 mg 06/23/20 22:00 06/30/20 09:14 Catapres PO 0.2 mg Q12HR NELSON Administration Glycopyrrolate 2 mg 06/09/20 14:00 06/30/20 09:14 Glycopyrrolate PO 2 mg TID NELSON Administration Heparin Sodium (Porcine) 5,000 unit 06/30/20 14:00 Heparin SUB-Q Q8HR NELSON Hydralazine HCl 50 mg 06/03/20 09:00 06/30/20 07:00 Apresoline PO 50 mg Q8HR NELSON Administration Hydrophilic Ointment 1 applic 05/28/20 13:49 Vaseline Lip Therapy TP Q2HR PRN Dry Lips Vasopressin 20 unit/ Sodium 101 mls @ 9.09 mls/hr 06/26/20 19:00 06/26/20 19:30 Chloride IV 0 units/min TITR NELSON 0 mls/hr Titration Protocol 0.03 UNITS/MIN Norepinephrine 4 mg in 250 mls @ 7.5 mls/hr 06/26/20 19:00 06/26/20 20:06 Levophed Drip 4 Mg/Ns 250 Ml IV 0 mcg/min TITR NELSON 0 mls/hr Titration Protocol 2 MCG/MIN Phenylephrine HCl 100 mg/ 100 mls @ 3 mls/hr 06/26/20 18:15 Sodium Chloride IV TITR NELSON Protocol 50 MCG/MIN Cefepime HCl 2 gm in 100 mls @ 200 mls/hr 06/28/20 13:00 06/30/20 07:00 Cefepime/Ns 2 Gm/100 Ml IV 200 mls/hr Q8HR NELSON Administration Protocol Vancomycin HCl 2,000 mg/ 540 mls @ 250 mls/hr 06/28/20 13:00 06/30/20 10:09 Sodium Chloride IV 250 mls/hr Q24HR NELSON Administration Insulin Glargine 10 units 06/08/20 22:00 06/29/20 21:21 Lantus SUB-Q 10 units QHS NELSON Administration Insulin Human Lispro 0 unit 05/29/20 18:00 06/30/20 09:17 Humalog SUB-Q Not Given Q6H [facility] Protocol Labetalol HCl 20 mg 06/03/20 09:00 06/26/20 21:27 Labetalol IV 20 mg Q4H PRN Administration HYPERTENSION Lansoprazole 30 mg 06/05/20 22:00 06/30/20 09:14 Prevacid Solutab FEEDTUBE 30 mg BID NELSON Administration Levetiracetam 500 mg 06/16/20 11:00 06/30/20 09:14 Keppra PO 500 mg BID NELSON Administration Lidocaine HCl 15 ml 06/26/20 20:00 06/30/20 09:15 Magic Mouthwash PO 15 ml TID [facility] Administration Metoclopramide HCl 10 mg 06/10/20 20:00 06/30/20 09:16 Reglan IV Not Given Q6H [facility] Multi-Ingred Cream/Lotion/Oil/Oint 1 applic 05/28/20 13:49 Artificial Tears Ophth Oint OU Q4HR PRN Dry Eye(s) Ondansetron HCl 4 mg 06/02/20 09:00 06/09/20 16:48 Zofran IV 4 mg Q8H PRN Administration Nausea And Vomiting Scopolamine 1 each 06/05/20 14:00 06/29/20 09:44 Transderm-Scop TD 1 each Q3D [facility] Administration Senna 17.6 mg 06/03/20 10:00 06/30/20 10:13 Senokot FEEDTUBE Not Given BID NELSON Simple Syrup 15 ml 05/29/20 13:39 Simple Syrup FEEDTUBE PRN PRN Hypoglycemia Simple Syrup 30 ml 05/29/20 13:39 Simple Syrup FEEDTUBE PRN PRN Hypoglycemia Sodium Bicarbonate 325 mg 05/29/20 13:39 Sodium Bicarbonate FEEDTUBE PRN PRN For Clogged Feeding Tube Sodium Chloride 10 ml 05/28/20 22:00 06/30/20 09:16 Sodium Chloride Flush Syringe 10 Ml IV 10 ml BID NELSON Administration Sodium Chloride 10 ml 05/28/20 19:08 06/16/20 17:50 Sodium Chloride Flush Syringe 10 Ml IV 10 ml PRN PRN Administration LINE FLUSH
[2020-06-30] MEDS: HEPARIN 5,000 UNIT/1 ML VIAL SUB-Q SCH ×2 (14:32→21:32)
--- NOTE | 2020-06-30 14:54 | Progress Note ---
Assessment and Plan --Febrile illness Start empiric antibiotics with vancomycin and Rocephin Panculture, reconsult ID -- Acute hypoxemic respiratory failure From COVID-19 viral infection, intubated on admission extubated on 06/12/20 then placed on high flow o2 patient developed another respiratory arrest on 06/26 - reintubated CC following -- s/p Cardiac arrest on admission and on 06/26 Cardiology team on board Conservative management as per cardiology --COVID-19 positive 05/28/2020 Completed treatment, ID following --Superficial left cephalic vein DVT/elevated D-dimers[COVID 19] Patient is on heparin drip from 05/29/20 D-dimers improved [id number] s/p heparin drip, Discussed with ID, treated with Eliquis 5 mg twice a day for 1 week[per ID] stop date 06/26/2020 -- Acute metabolic encephalopathy, POA likely from sepsis and s/p cardiac arrest with possible anoxic injury -- Acute renal failure: likely ATN Cr slowly improving Avoid ACEI and other nephrotoxic medications Nephrology following -- Coronavirus infection with b/l PNA Completed remdesivir on 06/02 Completed dexamethasone - Last dose 06/07 ID recs appreciated. --Klebsiella pneumonia: Initially completed antibiotics with cefepime Repeat sputum culture still positive for Klebsiella, restarted antibiotic --CHF (congestive heart failure) Cardiology following. Ef 45% -- Coffee ground emesis -Stress ulcers Possible stress ulcers, On PPI H/H again dropped - transfuse GI evaluation -- Hypertension; moderate control Continue amlodipine, coreg, clonidine and hydralazine --Mild LFT elevation: likely from COVID-19. cont to monitor -- DVT prophylaxis Eliquis, SCD to bilateral lower extremities while in bed -- Advance care planning Patient is critically ill with multiple medical problems Poor prognosis, family updated and requesting full code The high probability of a clinically significant, sudden or life threatening deterioration of the [CVS, renal, respiratory, [employer]] system(s) required my full and direct attention, intervention and personal management. The aggregate critical care time was [34] minutes. This time is in addition to time spent performing reported procedures but includes the following: [x] Data Review and interpretation [x] Patient assessment and monitoring of vital signs [x] Documentation [x] Medication orders and management Brief history: 64 YO Female with a medical history of HTN, Diastolic CHF, Pulmonary HTN, DM, Obesity Hypoventilation Syndrome presents to ED for evaluation of shortness of breath. As per staff, the EMS was notified for difficulty breathing. Upon arrival to the patient's home the patient was found to be in distress and was subsequently transported to [facility] for further evaluation and care. In route to [facility] the patient developed cardiac arrest and was treated in accordance with ACLS protocol with return of ROSC. Patient was seen and evaluated in the emergency department and was intubated and placed on ventilatory support. Patient admitted to ICU. Critical care team consulted in ED. She was found to have COVID-19 infection and was started on steroids and remdesivir. ID was consulted. Cardiology was consulted for her systolic heart failure and cardiac arrest. Patient completed treatment for COVID-19, then develop superimposed bacterial pneumonia with Klebsiella. She is now extubated, but remains confused and requiring high flow O2 and intermittent BiPAP. 06/01. Patient remains intubated and on ventilatory support today. Patient has multiple organ system failure and has poor prognosis. Patient did not experience significant medical decompensation overnight but no improvement with current therapy. 06/02. Remains intubated. her BP is elevated. Started on nicardipine drip. Cardiology following. 06/03-06/04. BP is better. Hb stable. Completed remdesivir. ID , Cardiology and Critical care team on board 06/05. Bump in creatinine. I/O reviewed. Nephrology consulted. 06/06. Has slight improvement in renal function. Nephrology on board. On SBT today. Vitals stable. 06/07. Stable renal function. No need for HD as per nephrology. She is making urine. Plan for SBT. 06/08. Off sedation and very lethargic. Her BUN is going up - effect of steroids vs GI bleed. Her hemoglobin remains stable. Will check stool guaiac. Nephrology is following. WBC bumped to 16 today. 06/09: remains intubated, wbc trended up, Cr slightly trending down. cont TF, wean off vent as tolerated. 06/10: Cr trending down, cont to wean off vent as tolerated. 06/10; Cr much improved, cont iv fluid, tolerating tube feeding. stopped vac, iv cefepime for total 10 days. 06/11; creatinine 1.5 today, sodium level has normalized. Continue tube feeding, continue cefepime for 10 days. Continue to wean off as tolerated. 06/12: planned for extubation today 06/13: extubated yesterday, now on Bipap 06/14: patient on Bipap, remains on TF, restraint. cont to follow clinically 06/15: patient on high flow O2,remains on TF, restraint. cont to follow clinically. transfer to [facility] 06/16: Patient remains on high flow O2, intermittently on BiPAP. Tolerating tube feeding. cont to monitor at [facility] 06/17; patient on BiPAP. Remains confused and on tube feeding. Continue to monitor at IM. Wean off O2 as tolerated. 06/18; patient feels slightly better on high flow oxygen, minimally communicative, stable to be transferred out of [facility] to telemetry 06/20; remains hypoxic on high flow oxygen, today noncommunicative sleeping all the time, vital signs noted 06/21; more alert and awake confused at times and pulling, restraint for safety, on high flow oxygen We will request physical therapy once more stable 06/22; PT unable to assess due to safety concerns, remains hypoxic on high flow oxygen, BiPAP at night. minimally communicative 06/23: Remains on high flow O2, order for speech eval, continue tube feeding. Creatinine noted to be elevated today -2.4, increase IV fluid hydration. 06/24: Kidney function started worsening 06/23 -likely from hypotension. patient had episodes of hypotension on 06/22. Kidney function is unchanged from yesterday. No further episodes of hypotension. Follow-up electrolytes and renal function. patient remains on high flow O2 06/25: patient on 15L o2 with n/c. on Bipap at night. follow renal function and follow bmp . Placement not possible as patient unfunded. wean off o2 as tolerated. 06/26: hb 6.9 today, transfuse one unit. wean off from O2 as tolerated. check stool for occult blood. consult GI if stool is positive for blood. 06/27; Code blue called yesterday. ACLS initiated, Pt found to have Asystolic Arrest with eventual return of perfusing cardiac rhythm. patient reintubated during code, transferred to ICU, called family and updated 06/28: Patient is spiking fever, started on empiric antibiotic, ordered blood urine and sputum culture. We will reconsult ID. Discussed with patient's son in the evening. Family wants to continue full CODE STATUS. Discussed with critical care attending and RN in length. 06/29: Repeat COVID-19 test is positive. Patient remains on ventilator, continue tube feeding diet. Renal function stable, H&H stable. GI recommendation appreciated -no plan for endoscopy now as there is no active bleeding. 06/30: Renal function improving, patient remains positive for COVID. Tolerating tube feeding, wean off vent as tolerated. Patient remains with poor prognosis Subjective Date of service: 06/30/20 Principal diagnosis: Coffee Ground Emesis Interval history: Patient seen and examined Vitals reviewed, intubated Tolerating tube feeding Discussed with RN at the bedside Objective - Exam Narrative Exam: General appearance: Present: mild distress, well-nourished, obese (Morbidly obese), other (intubated) - EENT Eyes: No congestion or icterus - Neck Neck: Present: supple, normal ROM - Respiratory Respiratory effort: normal Respiratory: bilateral: diminished, rhonchi, negative: rales, wheezing - Cardiovascular Rhythm: regular Heart Sounds: Present: S1 & S2 - Extremities Extremities: no ischemia, No edema - Abdominal General gastrointestinal: soft, non-tender, non-distended, normal bowel sounds - Integumentary Integumentary: Present: clear, warm - Psychiatric Psychiatric: other (intubated) - Neurologic Neurologic: other (intubated) - Constitutional Vitals: Vital Signs - 12hr 06/30/20 06/30/20 06/30/20 03:00 03:20 04:00 Temperature 99.6 F Pulse Rate 76 75 74 Pulse Rate [ From Monitor] Respiratory 17 2 L 21 Rate Respiratory Rate [Left Upper Hand] Blood Pressure 148/82 153/91 144/58 O2 Sat by Pulse 97 97 99 Oximetry 06/30/20 06/30/20 06/30/20 05:00 06:00 07:01 Temperature Pulse Rate 70 71 69 Pulse Rate [ From Monitor] Respiratory 17 20 20 Rate Respiratory Rate [Left Upper Hand] Blood Pressure 147/58 145/62 145/57 O2 Sat by Pulse 99 98 99 Oximetry 06/30/20 06/30/20 06/30/20 08:00 08:16 09:01 Temperature Pulse Rate 73 75 79 Pulse Rate [ 77 From Monitor] Respiratory 20 22 20 Rate Respiratory Rate [Left Upper Hand] Blood Pressure 157/61 157/61 148/68 O2 Sat by Pulse 98 97 96 Oximetry 06/30/20 06/30/20 06/30/20 09:14 10:00 11:00 Temperature Pulse Rate 77 78 75 Pulse Rate [ From Monitor] Respiratory 20 19 Rate Respiratory 18 Rate [Left Upper Hand] Blood Pressure 148/68 133/55 145/58 O2 Sat by Pulse 96 96 Oximetry 06/30/20 06/30/20 06/30/20 12:00 12:13 13:00 Temperature Pulse Rate 73 76 71 Pulse Rate [ 75 From Monitor] Respiratory 14 18 18 Rate Respiratory Rate [Left Upper Hand] Blood Pressure 138/56 138/56 149/62 O2 Sat by Pulse 97 98 97 Oximetry 06/30/20 14:32 Temperature Pulse Rate 73 Pulse Rate [ From Monitor] Respiratory Rate Respiratory Rate [Left Upper Hand] Blood Pressure 135/57 O2 Sat by Pulse Oximetry - Labs CBC & Chem 7: 07/01/20 06:01 07/01/20 06:01 Labs: Abnormal lab results 06/29/20 06/29/20 06/29/20 Range/Units 14:45 14:45 14:45 RBC (3.65-5.03) M/mm3 Hgb (10.1-14.3) gm/dl Hct (30.3-42.9) % RDW (13.2-15.2) % Lymph % (Auto) (13.4-35.0) % [place] % (Auto) (0.0-7.3) % Lymph # (1.2-5.4) K/mm3 [place] # (0.0-0.8) K/mm3 Seg Neutrophils % (40.0-70.0) % D-Dimer 2310.15 H (0-234) ng/mlDDU Chloride (98-107) mmol/L BUN (7-17) mg/dL Creatinine (0.6-1.2) mg/dL Glucose (65-100) mg/dL POC Glucose (70-105) Calcium (8.4-10.2) mg/dL Ferritin 223.6 H (10.0-200.0) ng/mL Lactate Dehydrogenase 367 H (91-180) units/L C-Reactive Protein 3.60 H (0.00-1.30) mg/dL Coronavirus (PCR) (Negative) 06/29/20 06/29/20 06/29/20 Range/Units 18:27 23:35 Unknown RBC (3.65-5.03) M/mm3 Hgb (10.1-14.3) gm/dl Hct (30.3-42.9) % RDW (13.2-15.2) % Lymph % (Auto) (13.4-35.0) % [place] % (Auto) (0.0-7.3) % Lymph # (1.2-5.4) K/mm3 [place] # (0.0-0.8) K/mm3 Seg Neutrophils % (40.0-70.0) % D-Dimer (0-234) ng/mlDDU Chloride (98-107) mmol/L BUN (7-17) mg/dL Creatinine (0.6-1.2) mg/dL Glucose (65-100) mg/dL POC Glucose 112 H 140 H (70-105) Calcium (8.4-10.2) mg/dL Ferritin (10.0-200.0) ng/mL Lactate Dehydrogenase (91-180) units/L C-Reactive Protein (0.00-1.30) mg/dL Coronavirus (PCR) Positive A (Negative) 06/30/20 06/30/20 06/30/20 Range/Units 04:10 04:10 06:09 RBC 2.44 L (3.65-5.03) M/mm3 Hgb 7.1 L (10.1-14.3) gm/dl Hct 21.5 L (30.3-42.9) % RDW 16.6 H (13.2-15.2) % Lymph % (Auto) 11.0 L (13.4-35.0) % [place] % (Auto) 10.8 H (0.0-7.3) % Lymph # 0.9 L (1.2-5.4) K/mm3 [place] # 0.9 H (0.0-0.8) K/mm3 Seg Neutrophils % 73.7 H (40.0-70.0) % D-Dimer (0-234) ng/mlDDU Chloride 109.1 H (98-107) mmol/L BUN 74 H (7-17) mg/dL Creatinine 1.3 H (0.6-1.2) mg/dL Glucose 191 H (65-100) mg/dL POC Glucose 187 H (70-105) Calcium 7.8 L (8.4-10.2) mg/dL Ferritin (10.0-200.0) ng/mL Lactate Dehydrogenase (91-180) units/L C-Reactive Protein (0.00-1.30) mg/dL Coronavirus (PCR) (Negative) 06/30/20 Range/Units 12:04 RBC (3.65-5.03) M/mm3 Hgb (10.1-14.3) gm/dl Hct (30.3-42.9) % RDW (13.2-15.2) % Lymph % (Auto) (13.4-35.0) % [place] % (Auto) (0.0-7.3) % Lymph # (1.2-5.4) K/mm3 [place] # (0.0-0.8) K/mm3 Seg Neutrophils % (40.0-70.0) % D-Dimer (0-234) ng/mlDDU Chloride (98-107) mmol/L BUN (7-17) mg/dL Creatinine (0.6-1.2) mg/dL Glucose (65-100) mg/dL POC Glucose 112 H (70-105) Calcium (8.4-10.2) mg/dL Ferritin (10.0-200.0) ng/mL Lactate Dehydrogenase (91-180) units/L C-Reactive Protein (0.00-1.30) mg/dL Coronavirus (PCR) (Negative)
--- NOTE | 2020-06-30 16:27 | Gastroenterology Progress Note ---
Assessment and Plan - Patient Problems (1) Coffee ground emesis Current Visit: Yes Status: Acute Plan to address problem: - Likely stress ulcers, but hemodynamics stable and no gross GI output. - Will continue PPI therapy. - EGD if gross bleeding. - Anticoagulation benefits likely outweigh risks if hct remains above 21. - Will sign off; please call if needed. (2) Acute blood loss anemia Current Visit: Yes Status: Acute Subjective Date of service: 06/30/20 Principal diagnosis: Coffee Ground Emesis Interval history: No significant bleeding reported. No melena or hematemesis. No transfusion required. Objective - Constitutional Vitals: Temp Pulse Resp BP Pulse Ox 99.6 F 73 18 135/57 97 06/30/20 04:00 06/30/20 14:32 06/30/20 13:00 06/30/20 14:32 06/30/20 13:00 General appearance: no acute distress - Respiratory Respiratory effort: normal Respiratory: bilateral: CTA (Vent) - Cardiovascular Rhythm: regular Heart Sounds: Present: S1 & S2 - Gastrointestinal General gastrointestinal: Present: soft, non-tender, non-distended - Labs CBC & Chem 7: 06/30/20 04:10 06/30/20 04:10 Labs: Laboratory Results - last 24 hr 06/29/20 06/29/20 06/29/20 14:45 14:45 14:45 WBC RBC Hgb Hct MCV MCH MCHC RDW Plt Count Lymph % (Auto) [place] % (Auto) Eos % (Auto) Baso % (Auto) Lymph # [place] # Eos # Baso # Seg Neutrophils % Seg Neutrophils # D-Dimer 2310.15 H Sodium Potassium Chloride Carbon Dioxide Anion Gap BUN Creatinine Estimated GFR BUN/Creatinine Ratio Glucose POC Glucose Calcium Ferritin 223.6 H Procalcitonin 2.45 Coronavirus (PCR) 06/29/20 06/29/20 06/29/20 18:27 23:35 Unknown WBC RBC Hgb Hct MCV MCH MCHC RDW Plt Count Lymph % (Auto) [place] % (Auto) Eos % (Auto) Baso % (Auto) Lymph # [place] # Eos # Baso # Seg Neutrophils % Seg Neutrophils # D-Dimer Sodium Potassium Chloride Carbon Dioxide Anion Gap BUN Creatinine Estimated GFR BUN/Creatinine Ratio Glucose POC Glucose 112 H 140 H Calcium Ferritin Procalcitonin Coronavirus (PCR) Positive A 06/30/20 06/30/2020 04:10 04:10 06:09 WBC 8.4 RBC 2.44 L Hgb 7.1 L Hct 21.5 L MCV 88 MCH 29 MCHC 33 RDW 16.6 H Plt Count 325 Lymph % (Auto) 11.0 L [place] % (Auto) 10.8 H Eos % (Auto) 3.9 Baso % (Auto) 0.6 Lymph # 0.9 L [place] # 0.9 H Eos # 0.3 Baso # 0.1 Seg Neutrophils % 73.7 H Seg Neutrophils # 6.2 D-Dimer Sodium 145 Potassium 3.7 Chloride 109.1 H Carbon Dioxide 26 Anion Gap 14 BUN 74 H Creatinine 1.3 H Estimated GFR 42 BUN/Creatinine Ratio 57 Glucose 191 H POC Glucose 187 H Calcium 7.8 L Ferritin Procalcitonin Coronavirus (PCR) 06/30/20 12:04 WBC RBC Hgb Hct MCV MCH MCHC RDW Plt Count Lymph % (Auto) [place] % (Auto) Eos % (Auto) Baso % (Auto) Lymph # [place] # Eos # Baso # Seg Neutrophils % Seg Neutrophils # D-Dimer Sodium Potassium Chloride Carbon Dioxide Anion Gap BUN Creatinine Estimated GFR BUN/Creatinine Ratio Glucose POC Glucose 112 H Calcium Ferritin Procalcitonin Coronavirus (PCR)
[2020-06-30] MEDS: INSULIN GLARGINE 100 UNITS/ML SUB-Q SCH (21:34)
[2020-06-30] MEDS ORDERED: SODIUM CHLORIDE 0.9% 500 ML 500 ML IV SCH (22:00)
[2020-07-01] MEDS ORDERED: EPINEPHrine 1 MG/10 ML SYRINGE ONE (05:48)
[2020-07-01] MEDS ORDERED: AMIODARONE 150 MG/3 ML INJ IV ONE (05:48)
[2020-07-01] MEDS ORDERED: SODIUM BICARB 8.4% 50 MEQ/50 ML SYRINGE IV ONE (05:48)
[2020-07-01] MEDS: CEFEPIME/NS 2 GM/100 ML 2 GM/100 ML BAG IV SCH ×3 (06:01→21:02)
[2020-07-01] MEDS: hydrALAZINE 25 MG TAB PO SCH ×3 (06:02→21:02)
[2020-07-01] MEDS: HEPARIN 5,000 UNIT/1 ML VIAL SUB-Q SCH ×3 (06:03→21:03)
[2020-07-01] MEDS: INSULIN LISPRO 100 UNIT/ML VIAL 3 mL SUB-Q SCH ×3 (06:07→18:40)
[2020-07-01 06:10] LABS: Hemoglobin 8.2 gm/dl (10.1-14.3); Mean Corpuscular HGB Conc 32 % (30-34); Mean Corpuscular Volume 88 fl (79-97); Platelet Count 421 K/mm3 (140-440); Red Blood Count 2.95 M/mm3 (3.65-5.03); Red Cell Distribution Width 16.9 % (13.2-15.2)
[2020-07-01 06:25] LABS: Calcium 8.1 mg/dL (8.4-10.2)
[2020-07-01] MEDS: METOCLOPRAMIDE 10 MG/2 ML INJ IV SCH ×4 (06:39→21:02)
--- NOTE | 2020-07-01 06:42 | XRay Report ---
CHEST 1 VIEW 07/01/2020 6:03 AM INDICATION / CLINICAL INFORMATION: chest pain. COMPARISON: 06/29/2020 FINDINGS: SUPPORT DEVICES: Lines and tubes again project in expected position HEART / MEDIASTINUM: Moderate cardiomegaly. LUNGS / PLEURA: Streaky bilateral airspace disease characteristic for pneumonia No pneumothorax. ADDITIONAL FINDINGS: No significant additional findings. IMPRESSION: 1. Worsening bilateral pneumonia Signer Name: Chema Corrigan MD Signed: 07/01/2020 6:37 AM Workstation Name: [id number]
--- NOTE | 2020-07-01 06:56 | Event Note ---
Date: 07/01/20 LUIS TYSON WAS CALLED ON PATIENT , ON ARRIVAL CPR WAS IN PROGRESS AND PATIENT ALREADY INTUBATED . CPR WAS STARTED AT 05.48 AND AFTER FULL CPR WAS INSTUITUTED, PATIENT REGAINED HER PULSE AND BLOOD PRESSURE AFTER 4-5 MUNITES OF CPR AT ABOUT 05.52. AND REMAINED STABLE ON HER PREVIOUS ORDERS.
[2020-07-01 08:34] LABS: Chol/HDL Ratio 2.24 %
[2020-07-01] MEDS: GLYCOPYRROLATE 2 MG TAB PO SCH ×3 (08:39→20:59)
[2020-07-01] MEDS: MAGIC MOUTHWASH 30ML PO SCH ×3 (08:39→21:04)
--- NOTE | 2020-07-01 08:57 | Progress Note ---
Assessment and Plan Cardiopulmoanry arrest 06/26/2020 with ROSC Acute hypoxemic respiratory failure , extubated now re-intubated Anemia s/p PRBC Severe COVID infection Multifocal pneumonia Morbid obesity Acute toxic metabolic encephalopathy AVANI secondary to COVID/vasomotor nephropathy Bilateral pulmonary edema. Bilateral pleural effusions. History of congestive heart failure. History of pulmonary hypertension. History of hypertension. Diabetes. Obesity hypoventilation syndrome. Oropharyngeal dysphagia. Continue Cefepime, Vancomycin Fluid conservative measures as tolerated by renal function and hemodynamcis VTE prophylaxis Supportive transfusions as indicated SBTs as tolerated Place midline line and discontinue RIJ central venous access-discussed with PICC line nurse Discussed possibility of changing her tube feeding for better absorption Free water flushes for hypernatremia - VAP bundle addressed -Aspiration precautions, HOB >40 -lung protective strategies-ARDS. net - continue bronchodilators with pulmonary hygiene per RT - wean per pulmonary driven protocols otherwise - continue to avoid benzodiazepines, reduce the possibility of delirium - prn analgesia per CPOT score - Continue to wean supplemental oxygen for target O2 sats > 92% -Continue to hold sedation, if needed intermittent dosing - conservative fluid management measures as tolerated by hemodynamics and renal function - Bronchodilators with pulmonary hygiene per RT - Accuchecks with glycemic control per SSI (While critically ill target blood glucose of 140-180 mg/dL; avoid hypoglycemia) - Maintenance of sleep-wake cycle, avoid delirium - Avoid nephrotoxins, closely monitor renal function, dose all medications for r enal function - Aspiration precautions, HOB >40 - Stress ulcer prophylaxis -Famotidine - Mobility protocol, off loading and skin assessment for pressure ulcer prevention - Monitor hemodynamics closely - Supportive transfusions as indicated to keep HgB >7g/dL COVID SPECIFIC INTERVENTIONS -Airborne, contact isolation for COVID per facility protocols - s/p Remdesivir -IV steroids-Dexamethasone -Trend d-dimer,and other inflammatory markers per facility protocol -Convalescent plasma therapy per facility protocol -Continue all supportive care Discussed with the ICU team-RTRN, Life threatening condition- Cardiopulmaonry arrest with ROSC, Sepsis ;COVID 19 acute hypoxemic respiratory failure on MVS Mortality/Morbidity- High Complexity of medical decision making- High CONDITION: CRITICAL PROGNOSIS: GUARDED CODE STATUS: FULL CODE The high probability of a clinically significant, sudden or life-threatening deterioration of the [respiratory & neurology, renal ] system(s) required my full and direct attention, intervention and personal management. The aggregate critical care time was [34] minutes without overlap. Time includes spent on; [x] Data Review and interpretation [x] Patient assessment and monitoring of vital signs [x] Documentation [x] Medication orders and management Subjective Date of service: 07/01/20 Principal diagnosis: Coffee Ground Emesis Interval history: Patient is seen today for: Ac hypoxemic resp failure s/p Cardiopulmonary arrest with ROSC; Coronavirus-19 infection; pneumonia; Pulmonary edema; Bilateral pleural effusions; CHF; Morbid obesity; pulmonary hypertension; OHS; DM II Seen and examined at bedside; 24hour events reviewed; nursing and respiratory care staff consulted; Vitals, labs,medications, chart reviewed. PEA arrest this morning with ROSC within 4 mins. Apparently had an episode of desaturations then PEA arrest. Has a cough and gag reflex on suctioning, Tube feedings on hold for high residuals- on Reglan Remains on MVS, no fevers, Objective Vital Signs - 12hr 06/30/20 06/30/20 06/30/20 21:00 21:30 21:31 Temperature Pulse Rate 76 78 78 Pulse Rate [ From Monitor] Respiratory 18 Rate Respiratory Rate [Left Upper Hand] Blood Pressure 140/62 148/59 148/59 O2 Sat by Pulse 97 Oximetry 06/30/20 06/30/20 06/30/20 22:00 22:13 23:00 Temperature Pulse Rate 79 77 78 Pulse Rate [ From Monitor] Respiratory 15 19 19 Rate Respiratory 19 Rate [Left Upper Hand] Blood Pressure 134/67 148/59 143/60 O2 Sat by Pulse 98 98 99 Oximetry 07/01/20 07/01/20 07/01/20 00:00 00:15 01:00 Temperature 98.4 F Pulse Rate 77 81 76 Pulse Rate [ 78 From Monitor] Respiratory 22 18 Rate Respiratory Rate [Left Upper Hand] Blood Pressure 146/60 146/60 144/61 O2 Sat by Pulse 97 99 97 Oximetry 07/01/20 07/01/20 07/01/20 02:00 03:00 03:32 Temperature 99.0 F Pulse Rate 76 74 Pulse Rate [ From Monitor] Respiratory 16 15 Rate Respiratory Rate [Left Upper Hand] Blood Pressure 141/60 142/57 O2 Sat by Pulse 97 97 Oximetry 07/01/20 07/01/20 07/01/20 04:00 04:45 05:00 Temperature Pulse Rate 76 76 81 Pulse Rate [ 90 From Monitor] Respiratory 14 21 Rate Respiratory Rate [Left Upper Hand] Blood Pressure 149/66 158/63 148/57 O2 Sat by Pulse 99 98 97 Oximetry 07/01/20 07/01/20 07/01/20 06:01 06:02 08:16 Temperature Pulse Rate 93 H 90 79 Pulse Rate [ From Monitor] Respiratory 18 Rate Respiratory Rate [Left Upper Hand] Blood Pressure 148/69 148/69 140/55 O2 Sat by Pulse 92 98 Oximetry Constitutional: no acute distress, other (elderly looking obese female orally intubated, ETT at 7.5, 22 cm at the lip) Eyes: non-icteric ENT: oropharynx dry Neck: supple, no lymphadenopathy, no JVD, other (large neck circumference) Effort: normal Ascultation: Bilateral: clear, diminished breath sounds, rales, rhonchi (scant) Percussion: Bilateral: not dull Cardiovascular: regular rate and rhythm, other (S1,S2) Gastrointestinal: normoactive bowel sounds, soft, non-tender, non-distended Integumentary: normal Extremities: no cyanosis, no edema, pink and warm, pulses normal, no ischemia or petechiae Neurologic: pupils equal and round (dilated, minimally responsive to light), unable to assess Psychiatric: other (unable to assess re: AMS) CBC and BMP: 07/05/20 23:13 07/05/20 23:13 ABG, PT/INR, D-dimer: ABG ABG pCO2 40.7 mm Hg 06/29/20 03:54 ABG pO2 89.2 mm Hg (80.0-90.0) 06/29/20 03:54 ABG O2 Saturation 97.2 % (95.0-99.0) 06/29/20 03:54 ABG pH 7.408 (7.320-7.450) 07/01/20 05:02 POC ABG pCO2 35.8 mmHg (32.0-48.0) 07/01/20 05:02 POC ABG pO2 90.8 mmHg (83-108) 07/01/20 05:02 POC ABG HCO3 22.1 07/01/20 05:02 PT/INR, D-dimer PT 14.2 Sec. (12.2-14.9) 05/29/20 15:10 INR 1.08 (0.87-1.13) 05/29/20 15:10 D-Dimer 2310.15 ng/mlDDU (0-234) H 06/29/20 14:45 Abnormal lab findings: Abnormal Labs 05/28/20 05/28/20 05/28/20 13:29 13:47 13:47 WBC RBC Hgb Hct MCHC RDW 15.3 H Lymph % (Auto) [place] % (Auto) Eos % (Auto) Lymph # [place] # Seg Neutrophils % Seg Neuts % (Manual) Lymphocytes % (Manual) Seg Neutrophils # Seg Neutrophils # Man Lymphocytes # (Manual) Monocytes # (Manual) D-Dimer Heparin Anti-Xa Level ABG pH POC ABG pCO2 POC ABG pO2 ABG pO2 ABG HCO3 ABG O2 Saturation ABG Base Excess ABG Hemoglobin ABG Oxyhemoglobin VBG pH Oxyhemoglobin Sodium Potassium 6.6 H* Chloride 109.2 H Carbon Dioxide 17 L BUN 29 H Creatinine 1.3 H Glucose 265 H POC Glucose 248 H Lactic Acid Calcium 8.1 L Ferritin AST 63 H Alkaline Phosphatase Lactate Dehydrogenase Total Creatine Kinase 301 H CK-MB (CK-2) 4.3 H C-Reactive Protein Total Protein 5.4 L Albumin 2.6 L Troponin T HDL Cholesterol Urine WBC (Auto) Urine Creatinine Urine Total Protein Coronavirus (PCR) Crossmatch 05/28/20 05/28/20 05/28/20 13:47 13:47 14:46 WBC RBC Hgb Hct MCHC RDW Lymph % (Auto) [place] % (Auto) Eos % (Auto) Lymph # [place] # Seg Neutrophils % Seg Neuts % (Manual) Lymphocytes % (Manual) Seg Neutrophils # Seg Neutrophils # Man Lymphocytes # (Manual) Monocytes # (Manual) D-Dimer Heparin Anti-Xa Level ABG pH POC ABG pCO2 POC ABG pO2 ABG pO2 ABG HCO3 ABG O2 Saturation ABG Base Excess ABG Hemoglobin ABG Oxyhemoglobin VBG pH 7.152 L* Oxyhemoglobin Sodium Potassium 7.2 H* Chloride Carbon Dioxide BUN Creatinine Glucose POC Glucose Lactic Acid 3.40 H* Calcium Ferritin AST Alkaline Phosphatase Lactate Dehydrogenase Total Creatine Kinase CK-MB (CK-2) C-Reactive Protein Total Protein Albumin Troponin T HDL Cholesterol Urine WBC (Auto) Urine Creatinine Urine Total Protein Coronavirus (PCR) Crossmatch 05/28/20 05/28/20 05/28/20 15:33 15:33 15:51 WBC RBC Hgb Hct MCHC RDW Lymph % (Auto) [place] % (Auto) Eos % (Auto) Lymph # [place] # Seg Neutrophils % Seg Neuts % (Manual) Lymphocytes % (Manual) Seg Neutrophils # Seg Neutrophils # Man Lymphocytes # (Manual) Monocytes # (Manual) D-Dimer 8780.43 H Heparin Anti-Xa Level ABG pH 7.284 L POC ABG pCO2 POC ABG pO2 ABG pO2 273.0 H ABG HCO3 ABG O2 Saturation 99.4 H ABG Base Excess -6.1 L ABG Hemoglobin 17.2 H ABG Oxyhemoglobin VBG pH Oxyhemoglobin Sodium Potassium Chloride Carbon Dioxide BUN Creatinine Glucose 152 H POC Glucose Lactic Acid Calcium Ferritin AST Alkaline Phosphatase Lactate Dehydrogenase 365 H Total Creatine Kinase CK-MB (CK-2) C-Reactive Protein Total Protein Albumin Troponin T HDL Cholesterol Urine WBC (Auto) Urine Creatinine Urine Total Protein Coronavirus (PCR) Crossmatch 05/28/20 05/28/20 05/28/20 16:30 20:41 23:20 WBC RBC Hgb Hct MCHC RDW Lymph % (Auto) [place] % (Auto) Eos % (Auto) Lymph # [place] # Seg Neutrophils % Seg Neuts % (Manual) Lymphocytes % (Manual) Seg Neutrophils # Seg Neutrophils # Man Lymphocytes # (Manual) Monocytes # (Manual) D-Dimer Heparin Anti-Xa Level ABG pH POC ABG pCO2 POC ABG pO2 ABG pO2 ABG HCO3 ABG O2 Saturation ABG Base Excess ABG Hemoglobin ABG Oxyhemoglobin VBG pH Oxyhemoglobin Sodium Potassium Chloride Carbon Dioxide BUN Creatinine Glucose POC Glucose 225 H 224 H Lactic Acid Calcium Ferritin AST Alkaline Phosphatase Lactate Dehydrogenase Total Creatine Kinase CK-MB (CK-2) C-Reactive Protein Total Protein Albumin Troponin T HDL Cholesterol Urine WBC (Auto) 17.0 H Urine Creatinine Urine Total Protein Coronavirus (PCR) Crossmatch 05/28/20 05/29/20 05/29/20 Unknown 04:35 04:43 WBC RBC 3.48 L Hgb 9.8 L Hct 29.4 L MCHC RDW 16.0 H Lymph % (Auto) 7.4 L [place] % (Auto) Eos % (Auto) Lymph # 0.7 L [place] # Seg Neutrophils % 89.1 H Seg Neuts % (Manual) Lymphocytes % (Manual) Seg Neutrophils # 8.1 H Seg Neutrophils # Man Lymphocytes # (Manual) Monocytes # (Manual) D-Dimer Heparin Anti-Xa Level ABG pH POC ABG pCO2 POC ABG pO2 ABG pO2 ABG HCO3 19.3 L ABG O2 Saturation ABG Base Excess -4.5 L ABG Hemoglobin 9.7 L ABG Oxyhemoglobin VBG pH Oxyhemoglobin Sodium Potassium Chloride Carbon Dioxide BUN Creatinine Glucose POC Glucose Lactic Acid Calcium Ferritin AST Alkaline Phosphatase Lactate Dehydrogenase Total Creatine Kinase CK-MB (CK-2) C-Reactive Protein Total Protein Albumin Troponin T HDL Cholesterol Urine WBC (Auto) Urine Creatinine Urine Total Protein Coronavirus (PCR) Positive A Crossmatch 05/29/20 05/29/20 05/29/20 04:43 15:10 17:17 WBC RBC Hgb 9.3 L Hct 28.7 L MCHC RDW Lymph % (Auto) [place] % (Auto) Eos % (Auto) Lymph # [place] # Seg Neutrophils % Seg Neuts % (Manual) Lymphocytes % (Manual) Seg Neutrophils # Seg Neutrophils # Man Lymphocytes # (Manual) Monocytes # (Manual) D-Dimer Heparin Anti-Xa Level ABG pH POC ABG pCO2 POC ABG pO2 ABG pO2 ABG HCO3 ABG O2 Saturation ABG Base Excess ABG Hemoglobin ABG Oxyhemoglobin VBG pH Oxyhemoglobin Sodium Potassium Chloride 110.2 H Carbon Dioxide 18 L BUN 32 H Creatinine 1.4 H Glucose 180 H POC Glucose 147 H Lactic Acid Calcium Ferritin AST Alkaline Phosphatase Lactate Dehydrogenase Total Creatine Kinase CK-MB (CK-2) C-Reactive Protein Total Protein Albumin Troponin T HDL Cholesterol Urine WBC (Auto) Urine Creatinine Urine Total Protein Coronavirus (PCR) Crossmatch 05/30/20 05/30/20 05/30/20 00:08 00:12 04:15 WBC RBC Hgb Hct MCHC RDW Lymph % (Auto) [place] % (Auto) Eos % (Auto) Lymph # [place] # Seg Neutrophils % Seg Neuts % (Manual) Lymphocytes % (Manual) Seg Neutrophils # Seg Neutrophils # Man Lymphocytes # (Manual) Monocytes # (Manual) D-Dimer Heparin Anti-Xa Level 0.71 H ABG pH 7.460 H POC ABG pCO2 POC ABG pO2 ABG pO2 106.0 H ABG HCO3 18.9 L ABG O2 Saturation ABG Base Excess -4.4 L ABG Hemoglobin 6.8 L ABG Oxyhemoglobin VBG pH Oxyhemoglobin Sodium Potassium Chloride Carbon Dioxide BUN Creatinine Glucose POC Glucose 195 H Lactic Acid Calcium Ferritin AST Alkaline Phosphatase Lactate Dehydrogenase Total Creatine Kinase CK-MB (CK-2) C-Reactive Protein Total Protein Albumin Troponin T HDL Cholesterol Urine WBC (Auto) Urine Creatinine Urine Total Protein Coronavirus (PCR) Crossmatch 05/30/20 05/30/20 05/30/20 06:07 08:37 12:33 WBC RBC Hgb Hct MCHC RDW Lymph % (Auto) [place] % (Auto) Eos % (Auto) Lymph # [place] # Seg Neutrophils % Seg Neuts % (Manual) Lymphocytes % (Manual) Seg Neutrophils # Seg Neutrophils # Man Lymphocytes # (Manual) Monocytes # (Manual) D-Dimer Heparin Anti-Xa Level 0.85 H ABG pH POC ABG pCO2 POC ABG pO2 ABG pO2 ABG HCO3 ABG O2 Saturation ABG Base Excess ABG Hemoglobin ABG Oxyhemoglobin VBG pH Oxyhemoglobin Sodium Potassium Chloride Carbon Dioxide BUN Creatinine Glucose POC Glucose 182 H 187 H Lactic Acid Calcium Ferritin AST Alkaline Phosphatase Lactate Dehydrogenase Total Creatine Kinase CK-MB (CK-2) C-Reactive Protein Total Protein Albumin Troponin T HDL Cholesterol Urine WBC (Auto) Urine Creatinine Urine Total Protein Coronavirus (PCR) Crossmatch 05/30/20 05/30/20 05/30/20 15:58 17:57 23:36 WBC RBC Hgb Hct MCHC RDW Lymph % (Auto) [place] % (Auto) Eos % (Auto) Lymph # [place] # Seg Neutrophils % Seg Neuts % (Manual) Lymphocytes % (Manual) Seg Neutrophils # Seg Neutrophils # Man Lymphocytes # (Manual) Monocytes # (Manual) D-Dimer Heparin Anti-Xa Level 1.03 H ABG pH POC ABG pCO2 POC ABG pO2 ABG pO2 ABG HCO3 ABG O2 Saturation ABG Base Excess ABG Hemoglobin ABG Oxyhemoglobin VBG pH Oxyhemoglobin Sodium Potassium Chloride Carbon Dioxide BUN Creatinine Glucose POC Glucose 208 H 185 H Lactic Acid Calcium Ferritin AST Alkaline Phosphatase Lactate Dehydrogenase Total Creatine Kinase CK-MB (CK-2) C-Reactive Protein Total Protein Albumin Troponin T HDL Cholesterol Urine WBC (Auto) Urine Creatinine Urine Total Protein Coronavirus (PCR) Crossmatch 05/31/20 05/31/20 05/31/20 02:16 03:55 06:16 WBC RBC Hgb 9.2 L Hct 27.5 L MCHC RDW Lymph % (Auto) [place] % (Auto) Eos % (Auto) Lymph # [place] # Seg Neutrophils % Seg Neuts % (Manual) Lymphocytes % (Manual) Seg Neutrophils # Seg Neutrophils # Man Lymphocytes # (Manual) Monocytes # (Manual) D-Dimer Heparin Anti-Xa Level ABG pH POC ABG pCO2 POC ABG pO2 ABG pO2 94.7 H ABG HCO3 18.6 L ABG O2 Saturation ABG Base Excess -5.5 L ABG Hemoglobin 7.9 L ABG Oxyhemoglobin VBG pH Oxyhemoglobin Sodium Potassium Chloride Carbon Dioxide BUN Creatinine Glucose POC Glucose 160 H Lactic Acid Calcium Ferritin AST Alkaline Phosphatase Lactate Dehydrogenase Total Creatine Kinase CK-MB (CK-2) C-Reactive Protein Total Protein Albumin Troponin T HDL Cholesterol Urine WBC (Auto) Urine Creatinine Urine Total Protein Coronavirus (PCR) Crossmatch 05/31/20 05/31/20 05/31/20 12:20 13:03 18:13 WBC RBC Hgb Hct MCHC RDW Lymph % (Auto) [place] % (Auto) Eos % (Auto) Lymph # [place] # Seg Neutrophils % Seg Neuts % (Manual) Lymphocytes % (Manual) Seg Neutrophils # Seg Neutrophils # Man Lymphocytes # (Manual) Monocytes # (Manual) D-Dimer Heparin Anti-Xa Level ABG pH POC ABG pCO2 POC ABG pO2 ABG pO2 ABG HCO3 ABG O2 Saturation ABG Base Excess ABG Hemoglobin ABG Oxyhemoglobin VBG pH Oxyhemoglobin Sodium Potassium Chloride Carbon Dioxide 18 L BUN 48 H Creatinine 1.6 H Glucose 115 H POC Glucose 128 H 159 H Lactic Acid Calcium 8.3 L Ferritin AST Alkaline Phosphatase Lactate Dehydrogenase Total Creatine Kinase CK-MB (CK-2) C-Reactive Protein Total Protein 5.4 L Albumin 2.4 L Troponin T HDL Cholesterol Urine WBC (Auto) Urine Creatinine Urine Total Protein Coronavirus (PCR) Crossmatch 05/31/20 06/01/20 06/01/20 23:51 04:00 05:48 WBC RBC Hgb Hct MCHC RDW Lymph % (Auto) [place] % (Auto) Eos % (Auto) Lymph # [place] # Seg Neutrophils % Seg Neuts % (Manual) Lymphocytes % (Manual) Seg Neutrophils # Seg Neutrophils # Man Lymphocytes # (Manual) Monocytes # (Manual) D-Dimer Heparin Anti-Xa Level ABG pH POC ABG pCO2 POC ABG pO2 ABG pO2 109.8 H ABG HCO3 18.8 L ABG O2 Saturation ABG Base Excess -5.9 L ABG Hemoglobin 7.8 L ABG Oxyhemoglobin VBG pH Oxyhemoglobin Sodium Potassium Chloride Carbon Dioxide BUN Creatinine Glucose POC Glucose 171 H 133 H Lactic Acid Calcium Ferritin AST Alkaline Phosphatase Lactate Dehydrogenase Total Creatine Kinase CK-MB (CK-2) C-Reactive Protein Total Protein Albumin Troponin T HDL Cholesterol Urine WBC (Auto) Urine Creatinine Urine Total Protein Coronavirus (PCR) Crossmatch 06/01/20 06/01/20 06/02/20 12:28 17:29 00:08 WBC RBC Hgb Hct MCHC RDW Lymph % (Auto) [place] % (Auto) Eos % (Auto) Lymph # [place] # Seg Neutrophils % Seg Neuts % (Manual) Lymphocytes % (Manual) Seg Neutrophils # Seg Neutrophils # Man Lymphocytes # (Manual) Monocytes # (Manual) D-Dimer Heparin Anti-Xa Level ABG pH POC ABG pCO2 POC ABG pO2 ABG pO2 ABG HCO3 ABG O2 Saturation ABG Base Excess ABG Hemoglobin ABG Oxyhemoglobin VBG pH Oxyhemoglobin Sodium Potassium Chloride Carbon Dioxide BUN Creatinine Glucose POC Glucose 199 H 209 H 162 H Lactic Acid Calcium Ferritin AST Alkaline Phosphatase Lactate Dehydrogenase Total Creatine Kinase CK-MB (CK-2) C-Reactive Protein Total Protein Albumin Troponin T HDL Cholesterol Urine WBC (Auto) Urine Creatinine Urine Total Protein Coronavirus (PCR) Crossmatch 06/02/20 06/02/20 06/02/20 04:20 04:20 04:44 WBC RBC Hgb 10.0 L Hct MCHC RDW Lymph % (Auto) [place] % (Auto) Eos % (Auto) Lymph # [place] # Seg Neutrophils % Seg Neuts % (Manual) Lymphocytes % (Manual) Seg Neutrophils # Seg Neutrophils # Man Lymphocytes # (Manual) Monocytes # (Manual) D-Dimer Heparin Anti-Xa Level 0.10 L ABG pH POC ABG pCO2 POC ABG pO2 ABG pO2 150.6 H ABG HCO3 ABG O2 Saturation ABG Base Excess -4.1 L ABG Hemoglobin 11.8 L ABG Oxyhemoglobin VBG pH Oxyhemoglobin Sodium Potassium Chloride Carbon Dioxide BUN Creatinine Glucose POC Glucose Lactic Acid Calcium Ferritin AST Alkaline Phosphatase Lactate Dehydrogenase Total Creatine Kinase CK-MB (CK-2) C-Reactive Protein Total Protein Albumin Troponin T HDL Cholesterol Urine WBC (Auto) Urine Creatinine Urine Total Protein Coronavirus (PCR) Crossmatch 06/02/20 06/02/20 06/02/20 05:53 12:04 13:49 WBC RBC Hgb Hct MCHC RDW Lymph % (Auto) [place] % (Auto) Eos % (Auto) Lymph # [place] # Seg Neutrophils % Seg Neuts % (Manual) Lymphocytes % (Manual) Seg Neutrophils # Seg Neutrophils # Man Lymphocytes # (Manual) Monocytes # (Manual) D-Dimer Heparin Anti-Xa Level 0.28 L ABG pH POC ABG pCO2 POC ABG pO2 ABG pO2 ABG HCO3 ABG O2 Saturation ABG Base Excess ABG Hemoglobin ABG Oxyhemoglobin VBG pH Oxyhemoglobin Sodium Potassium Chloride Carbon Dioxide BUN Creatinine Glucose POC Glucose 149 H 220 H Lactic Acid Calcium Ferritin AST Alkaline Phosphatase Lactate Dehydrogenase Total Creatine Kinase CK-MB (CK-2) C-Reactive Protein Total Protein Albumin Troponin T HDL Cholesterol Urine WBC (Auto) Urine Creatinine Urine Total Protein Coronavirus (PCR) Crossmatch 06/02/20 06/02/20 06/03/20 13:49 18:31 00:42 WBC RBC Hgb Hct MCHC RDW Lymph % (Auto) [place] % (Auto) Eos % (Auto) Lymph # [place] # Seg Neutrophils % Seg Neuts % (Manual) Lymphocytes % (Manual) Seg Neutrophils # Seg Neutrophils # Man Lymphocytes # (Manual) Monocytes # (Manual) D-Dimer 769.68 H Heparin Anti-Xa Level ABG pH POC ABG pCO2 POC ABG pO2 ABG pO2 ABG HCO3 ABG O2 Saturation ABG Base Excess ABG Hemoglobin ABG Oxyhemoglobin VBG pH Oxyhemoglobin Sodium Potassium Chloride Carbon Dioxide BUN Creatinine Glucose POC Glucose 225 H 212 H Lactic Acid Calcium Ferritin AST Alkaline Phosphatase Lactate Dehydrogenase Total Creatine Kinase CK-MB (CK-2) C-Reactive Protein Total Protein Albumin Troponin T HDL Cholesterol Urine WBC (Auto) Urine Creatinine Urine Total Protein Coronavirus (PCR) Crossmatch 06/03/20 06/03/20 06/03/20 05:16 05:16 05:25 WBC 11.4 H RBC Hgb Hct MCHC RDW 16.4 H Lymph % (Auto) [place] % (Auto) Eos % (Auto) Lymph # [place] # Seg Neutrophils % Seg Neuts % (Manual) Lymphocytes % (Manual) Seg Neutrophils # Seg Neutrophils # Man Lymphocytes # (Manual) Monocytes # (Manual) D-Dimer Heparin Anti-Xa Level ABG pH POC ABG pCO2 POC ABG pO2 ABG pO2 160.9 H ABG HCO3 19.4 L ABG O2 Saturation ABG Base Excess -4.9 L ABG Hemoglobin 7.0 L ABG Oxyhemoglobin VBG pH Oxyhemoglobin Sodium Potassium Chloride Carbon Dioxide 18 L BUN 65 H Creatinine 2.0 H Glucose 175 H POC Glucose Lactic Acid Calcium 8.0 L Ferritin AST Alkaline Phosphatase Lactate Dehydrogenase Total Creatine Kinase CK-MB (CK-2) C-Reactive Protein Total Protein 5.5 L Albumin 2.2 L Troponin T HDL Cholesterol Urine WBC (Auto) Urine Creatinine Urine Total Protein Coronavirus (PCR) Crossmatch 06/03/20 06/03/20 06/03/20 06:07 11:58 18:24 WBC RBC Hgb Hct MCHC RDW Lymph % (Auto) [place] % (Auto) Eos % (Auto) Lymph # [place] # Seg Neutrophils % Seg Neuts % (Manual) Lymphocytes % (Manual) Seg Neutrophils # Seg Neutrophils # Man Lymphocytes # (Manual) Monocytes # (Manual) D-Dimer Heparin Anti-Xa Level ABG pH POC ABG pCO2 POC ABG pO2 ABG pO2 ABG HCO3 ABG O2 Saturation ABG Base Excess ABG Hemoglobin ABG Oxyhemoglobin VBG pH Oxyhemoglobin Sodium Potassium Chloride Carbon Dioxide BUN Creatinine Glucose POC Glucose 177 H 163 H 211 H Lactic Acid Calcium Ferritin AST Alkaline Phosphatase Lactate Dehydrogenase Total Creatine Kinase CK-MB (CK-2) C-Reactive Protein Total Protein Albumin Troponin T HDL Cholesterol Urine WBC (Auto) Urine Creatinine Urine Total Protein Coronavirus (PCR) Crossmatch 06/03/20 06/03/20 06/04/20 21:50 Unknown 00:26 WBC RBC Hgb Hct MCHC RDW Lymph % (Auto) [place] % (Auto) Eos % (Auto) Lymph # [place] # Seg Neutrophils % Seg Neuts % (Manual) Lymphocytes % (Manual) Seg Neutrophils # Seg Neutrophils # Man Lymphocytes # (Manual) Monocytes # (Manual) D-Dimer Heparin Anti-Xa Level ABG pH POC ABG pCO2 POC ABG pO2 ABG pO2 ABG HCO3 ABG O2 Saturation ABG Base Excess ABG Hemoglobin ABG Oxyhemoglobin VBG pH Oxyhemoglobin Sodium 135 L Potassium Chloride Carbon Dioxide 18 L BUN Creatinine Glucose POC Glucose 241 H Lactic Acid Calcium Ferritin AST Alkaline Phosphatase Lactate Dehydrogenase Total Creatine Kinase CK-MB (CK-2) C-Reactive Protein Total Protein Albumin Troponin T HDL Cholesterol Urine WBC (Auto) 11.0 H Urine Creatinine Urine Total Protein Coronavirus (PCR) Crossmatch 06/04/20 06/04/20 06/04/20 03:35 04:19 04:19 WBC RBC 3.15 L Hgb 8.9 L Hct 26.8 L D MCHC RDW 15.9 H Lymph % (Auto) 6.0 L [place] % (Auto) Eos % (Auto) Lymph # 0.6 L [place] # Seg Neutrophils % 86.6 H Seg Neuts % (Manual) Lymphocytes % (Manual) Seg Neutrophils # 9.1 H Seg Neutrophils # Man Lymphocytes # (Manual) Monocytes # (Manual) D-Dimer Heparin Anti-Xa Level ABG pH 7.331 L POC ABG pCO2 POC ABG pO2 ABG pO2 ABG HCO3 ABG O2 Saturation ABG Base Excess -4.7 L ABG Hemoglobin 11.0 L ABG Oxyhemoglobin VBG pH Oxyhemoglobin 93.9 L Sodium 136 L Potassium Chloride Carbon Dioxide 20 L BUN 73 H Creatinine 2.0 H Glucose 192 H POC Glucose Lactic Acid Calcium 8.0 L Ferritin AST Alkaline Phosphatase Lactate Dehydrogenase 271 H Total Creatine Kinase CK-MB (CK-2) C-Reactive Protein 2.20 H Total Protein 5.0 L Albumin 2.0 L Troponin T HDL Cholesterol Urine WBC (Auto) Urine Creatinine Urine Total Protein Coronavirus (PCR) Crossmatch 06/04/20 06/04/20 06/04/20 04:19 05:51 11:48 WBC RBC Hgb Hct MCHC RDW Lymph % (Auto) [place] % (Auto) Eos % (Auto) Lymph # [place] # Seg Neutrophils % Seg Neuts % (Manual) Lymphocytes % (Manual) Seg Neutrophils # Seg Neutrophils # Man Lymphocytes # (Manual) Monocytes # (Manual) D-Dimer 414.52 H Heparin Anti-Xa Level ABG pH POC ABG pCO2 POC ABG pO2 ABG pO2 ABG HCO3 ABG O2 Saturation ABG Base Excess ABG Hemoglobin ABG Oxyhemoglobin VBG pH Oxyhemoglobin Sodium Potassium Chloride Carbon Dioxide BUN Creatinine Glucose POC Glucose 179 H 213 H Lactic Acid Calcium Ferritin AST Alkaline Phosphatase Lactate Dehydrogenase Total Creatine Kinase CK-MB (CK-2) C-Reactive Protein Total Protein Albumin Troponin T HDL Cholesterol Urine WBC (Auto) Urine Creatinine Urine Total Protein Coronavirus (PCR) Crossmatch 06/04/20 06/05/20 06/05/20 18:25 00:16 05:00 WBC RBC Hgb Hct MCHC RDW Lymph % (Auto) [place] % (Auto) Eos % (Auto) Lymph # [place] # Seg Neutrophils % Seg Neuts % (Manual) Lymphocytes % (Manual) Seg Neutrophils # Seg Neutrophils # Man Lymphocytes # (Manual) Monocytes # (Manual) D-Dimer Heparin Anti-Xa Level ABG pH 7.286 L POC ABG pCO2 POC ABG pO2 ABG pO2 96.2 H ABG HCO3 ABG O2 Saturation ABG Base Excess -6.3 L ABG Hemoglobin 8.8 L ABG Oxyhemoglobin VBG pH Oxyhemoglobin 94.8 L Sodium Potassium Chloride Carbon Dioxide BUN Creatinine Glucose POC Glucose 238 H 183 H Lactic Acid Calcium Ferritin AST Alkaline Phosphatase Lactate Dehydrogenase Total Creatine Kinase CK-MB (CK-2) C-Reactive Protein Total Protein Albumin Troponin T HDL Cholesterol Urine WBC (Auto) Urine Creatinine Urine Total Protein Coronavirus (PCR) Crossmatch 06/05/20 06/05/20 06/05/20 05:39 07:25 07:25 WBC RBC 2.97 L Hgb 8.7 L Hct 25.7 L MCHC RDW 16.0 H Lymph % (Auto) 8.8 L [place] % (Auto) 13.3 H Eos % (Auto) Lymph # 0.8 L [place] # 1.3 H Seg Neutrophils % 77.3 H Seg Neuts % (Manual) Lymphocytes % (Manual) Seg Neutrophils # Seg Neutrophils # Man Lymphocytes # (Manual) Monocytes # (Manual) D-Dimer Heparin Anti-Xa Level ABG pH POC ABG pCO2 POC ABG pO2 ABG pO2 ABG HCO3 ABG O2 Saturation ABG Base Excess ABG Hemoglobin ABG Oxyhemoglobin VBG pH Oxyhemoglobin Sodium 133 L Potassium Chloride Carbon Dioxide 17 L BUN 89 H Creatinine 2.8 H Glucose 176 H POC Glucose 149 H Lactic Acid Calcium 7.7 L Ferritin AST Alkaline Phosphatase Lactate Dehydrogenase Total Creatine Kinase CK-MB (CK-2) C-Reactive Protein Total Protein 4.2 L Albumin 1.9 L Troponin T HDL Cholesterol Urine WBC (Auto) Urine Creatinine Urine Total Protein Coronavirus (PCR) Crossmatch 06/05/20 06/05/2006/05/20 07:25 12:05 15:41 WBC RBC Hgb Hct MCHC RDW Lymph % (Auto) [place] % (Auto) Eos % (Auto) Lymph # [place] # Seg Neutrophils % Seg Neuts % (Manual) Lymphocytes % (Manual) Seg Neutrophils # Seg Neutrophils # Man Lymphocytes # (Manual) Monocytes # (Manual) D-Dimer Heparin Anti-Xa Level 0.76 H 0.81 H ABG pH POC ABG pCO2 POC ABG pO2 ABG pO2 ABG HCO3 ABG O2 Saturation ABG Base Excess ABG Hemoglobin ABG Oxyhemoglobin VBG pH Oxyhemoglobin Sodium Potassium Chloride Carbon Dioxide BUN Creatinine Glucose POC Glucose 198 H Lactic Acid Calcium Ferritin AST Alkaline Phosphatase Lactate Dehydrogenase Total Creatine Kinase CK-MB (CK-2) C-Reactive Protein Total Protein Albumin Troponin T HDL Cholesterol Urine WBC (Auto) Urine Creatinine Urine Total Protein Coronavirus (PCR) Crossmatch 06/05/20 06/05/20 06/06/20 18:08 23:25 04:00 WBC RBC Hgb Hct MCHC RDW Lymph % (Auto) [place] % (Auto) Eos % (Auto) Lymph # [place] # Seg Neutrophils % Seg Neuts % (Manual) Lymphocytes % (Manual) Seg Neutrophils # Seg Neutrophils # Man Lymphocytes # (Manual) Monocytes # (Manual) D-Dimer Heparin Anti-Xa Level ABG pH POC ABG pCO2 POC ABG pO2 ABG pO2 ABG HCO3 ABG O2 Saturation ABG Base Excess ABG Hemoglobin ABG Oxyhemoglobin VBG pH Oxyhemoglobin Sodium Potassium Chloride Carbon Dioxide BUN Creatinine Glucose POC Glucose 223 H 169 H Lactic Acid Calcium Ferritin AST Alkaline Phosphatase Lactate Dehydrogenase Total Creatine Kinase CK-MB (CK-2) C-Reactive Protein Total Protein Albumin Troponin T HDL Cholesterol Urine WBC (Auto) 15.0 H Urine Creatinine Urine Total Protein Coronavirus (PCR) Crossmatch 06/06/20 06/06/20 06/06/20 04:00 05:33 05:38 WBC RBC 2.97 L Hgb 8.7 L Hct 26.8 L MCHC RDW 16.8 H Lymph % (Auto) [place] % (Auto) Eos % (Auto) Lymph # [place] # Seg Neutrophils % Seg Neuts % (Manual) Lymphocytes % (Manual) Seg Neutrophils # Seg Neutrophils # Man Lymphocytes # (Manual) Monocytes # (Manual) D-Dimer Heparin Anti-Xa Level ABG pH POC ABG pCO2 POC ABG pO2 ABG pO2 ABG HCO3 ABG O2 Saturation ABG Base Excess ABG Hemoglobin ABG Oxyhemoglobin VBG pH Oxyhemoglobin Sodium Potassium Chloride Carbon Dioxide BUN Creatinine Glucose POC Glucose 186 H Lactic Acid Calcium Ferritin AST Alkaline Phosphatase Lactate Dehydrogenase Total Creatine Kinase CK-MB (CK-2) C-Reactive Protein Total Protein Albumin Troponin T HDL Cholesterol Urine WBC (Auto) Urine Creatinine 82.2 H Urine Total Protein 196 H Coronavirus (PCR) Crossmatch 06/06/20 06/06/20 06/06/20 05:38 12:25 17:03 WBC RBC Hgb Hct MCHC RDW Lymph % (Auto) [place] % (Auto) Eos % (Auto) Lymph # [place] # Seg Neutrophils % Seg Neuts % (Manual) Lymphocytes % (Manual) Seg Neutrophils # Seg Neutrophils # Man Lymphocytes # (Manual) Monocytes # (Manual) D-Dimer Heparin Anti-Xa Level ABG pH POC ABG pCO2 POC ABG pO2 ABG pO2 ABG HCO3 ABG O2 Saturation ABG Base Excess ABG Hemoglobin ABG Oxyhemoglobin VBG pH Oxyhemoglobin Sodium 134 L Potassium 5.2 H Chloride Carbon Dioxide 18 L BUN 97 H Creatinine 2.5 H Glucose 193 H POC Glucose 239 H 252 H Lactic Acid Calcium 7.5 L Ferritin AST Alkaline Phosphatase Lactate Dehydrogenase Total Creatine Kinase CK-MB (CK-2) C-Reactive Protein Total Protein 4.1 L Albumin 1.9 L Troponin T HDL Cholesterol Urine WBC (Auto) Urine Creatinine Urine Total Protein Coronavirus (PCR) Crossmatch 06/07/20 06/07/20 06/07/20 00:16 01:49 04:00 WBC RBC 2.91 L Hgb 8.4 L Hct 25.0 L MCHC RDW 16.1 H Lymph % (Auto) 5.7 L [place] % (Auto) 10.5 H Eos % (Auto) Lymph # 0.6 L [place] # 1.1 H Seg Neutrophils % 83.6 H Seg Neuts % (Manual) Lymphocytes % (Manual) Seg Neutrophils # 9.1 H Seg Neutrophils # Man Lymphocytes # (Manual) Monocytes # (Manual) D-Dimer Heparin Anti-Xa Level 0.26 L ABG pH POC ABG pCO2 POC ABG pO2 ABG pO2 ABG HCO3 ABG O2 Saturation ABG Base Excess ABG Hemoglobin ABG Oxyhemoglobin VBG pH Oxyhemoglobin Sodium Potassium Chloride Carbon Dioxide BUN Creatinine Glucose POC Glucose 173 H Lactic Acid Calcium Ferritin AST Alkaline Phosphatase Lactate Dehydrogenase Total Creatine Kinase CK-MB (CK-2) C-Reactive Protein Total Protein Albumin Troponin T HDL Cholesterol Urine WBC (Auto) Urine Creatinine Urine Total Protein Coronavirus (PCR) Crossmatch 06/07/20 06/07/20 06/07/20 04:00 04:54 05:51 WBC RBC Hgb Hct MCHC RDW Lymph % (Auto) [place] % (Auto) Eos % (Auto) Lymph # [place] # Seg Neutrophils % Seg Neuts % (Manual) Lymphocytes % (Manual) Seg Neutrophils # Seg Neutrophils # Man Lymphocytes # (Manual) Monocytes # (Manual) D-Dimer Heparin Anti-Xa Level ABG pH 7.317 L POC ABG pCO2 POC ABG pO2 ABG pO2 71.4 L ABG HCO3 ABG O2 Saturation 94.3 L ABG Base Excess -4.8 L ABG Hemoglobin 7.1 L ABG Oxyhemoglobin VBG pH Oxyhemoglobin 92.2 L Sodium 133 L Potassium Chloride Carbon Dioxide 18 L BUN 100 H Creatinine 2.5 H Glucose 158 H POC Glucose 168 H Lactic Acid Calcium 7.6 L Ferritin AST Alkaline Phosphatase Lactate Dehydrogenase Total Creatine Kinase CK-MB (CK-2) C-Reactive Protein Total Protein 4.7 L Albumin 2.0 L Troponin T HDL Cholesterol Urine WBC (Auto) Urine Creatinine Urine Total Protein Coronavirus (PCR) Crossmatch 06/07/20 06/07/20 06/07/20 12:03 17:17 20:10 WBC RBC Hgb Hct MCHC RDW Lymph % (Auto) [place] % (Auto) Eos % (Auto) Lymph # [place] # Seg Neutrophils % Seg Neuts % (Manual) Lymphocytes % (Manual) Seg Neutrophils # Seg Neutrophils # Man Lymphocytes # (Manual) Monocytes # (Manual) D-Dimer Heparin Anti-Xa Level 0.17 L ABG pH POC ABG pCO2 POC ABG pO2 ABG pO2 ABG HCO3 ABG O2 Saturation ABG Base Excess ABG Hemoglobin ABG Oxyhemoglobin VBG pH Oxyhemoglobin Sodium Potassium Chloride Carbon Dioxide BUN Creatinine Glucose POC Glucose 276 H 281 H Lactic Acid Calcium Ferritin AST Alkaline Phosphatase Lactate Dehydrogenase Total Creatine Kinase CK-MB (CK-2) C-Reactive Protein Total Protein Albumin Troponin T HDL Cholesterol Urine WBC (Auto) Urine Creatinine Urine Total Protein Coronavirus (PCR) Crossmatch 06/08/20 06/08/20 06/08/20 00:02 04:47 04:47 WBC 16.4 H RBC 3.07 L Hgb 8.6 L Hct 26.5 L MCHC RDW 16.3 H Lymph % (Auto) [place] % (Auto) Eos % (Auto) Lymph # [place] # Seg Neutrophils % Seg Neuts % (Manual) 90.0 H Lymphocytes % (Manual) 3.0 L Seg Neutrophils # Seg Neutrophils # Man 14.8 H Lymphocytes # (Manual) 0.5 L Monocytes # (Manual) 1.1 H D-Dimer Heparin Anti-Xa Level ABG pH POC ABG pCO2 POC ABG pO2 ABG pO2 ABG HCO3 ABG O2 Saturation ABG Base Excess ABG Hemoglobin ABG Oxyhemoglobin VBG pH Oxyhemoglobin Sodium 129 L Potassium Chloride 95.6 L Carbon Dioxide 17 L BUN 106 H Creatinine 2.5 H Glucose 213 H POC Glucose 242 H Lactic Acid Calcium 7.6 L Ferritin AST Alkaline Phosphatase Lactate Dehydrogenase Total Creatine Kinase CK-MB (CK-2) C-Reactive Protein Total Protein 5.0 L Albumin 2.1 L Troponin T HDL Cholesterol Urine WBC (Auto) Urine Creatinine Urine Total Protein Coronavirus (PCR) Crossmatch 06/08/20 06/08/20 06/08/20 05:40 11:55 17:54 WBC RBC Hgb Hct MCHC RDW Lymph % (Auto) [place] % (Auto) Eos % (Auto) Lymph # [place] # Seg Neutrophils % Seg Neuts % (Manual) Lymphocytes % (Manual) Seg Neutrophils # Seg Neutrophils # Man Lymphocytes # (Manual) Monocytes # (Manual) D-Dimer Heparin Anti-Xa Level ABG pH POC ABG pCO2 POC ABG pO2 ABG pO2 ABG HCO3 ABG O2 Saturation ABG Base Excess ABG Hemoglobin ABG Oxyhemoglobin VBG pH Oxyhemoglobin Sodium Potassium Chloride Carbon Dioxide BUN Creatinine Glucose POC Glucose 221 H 218 H 163 H Lactic Acid Calcium Ferritin AST Alkaline Phosphatase Lactate Dehydrogenase Total Creatine Kinase CK-MB (CK-2) C-Reactive Protein Total Protein Albumin Troponin T HDL Cholesterol Urine WBC (Auto) Urine Creatinine Urine Total Protein Coronavirus (PCR) Crossmatch 06/08/20 06/09/20 06/09/20 22:01 00:09 05:16 WBC 19.0 H RBC 3.35 L Hgb 9.2 L Hct 28.5 L MCHC RDW 16.3 H Lymph % (Auto) [place] % (Auto) Eos % (Auto) Lymph # [place] # Seg Neutrophils % Seg Neuts % (Manual) 85.0 H Lymphocytes % (Manual) 7.0 L Seg Neutrophils # Seg Neutrophils # Man 16.2 H Lymphocytes # (Manual) Monocytes # (Manual) 1.3 H D-Dimer Heparin Anti-Xa Level ABG pH POC ABG pCO2 POC ABG pO2 ABG pO2 ABG HCO3 ABG O2 Saturation ABG Base Excess ABG Hemoglobin ABG Oxyhemoglobin VBG pH Oxyhemoglobin Sodium Potassium Chloride Carbon Dioxide BUN Creatinine Glucose POC Glucose 182 H 150 H Lactic Acid Calcium Ferritin AST Alkaline Phosphatase Lactate Dehydrogenase Total Creatine Kinase CK-MB (CK-2) C-Reactive Protein Total Protein Albumin Troponin T HDL Cholesterol Urine WBC (Auto) Urine Creatinine Urine Total Protein Coronavirus (PCR) Crossmatch 06/09/20 06/09/20 06/09/20 05:16 05:24 11:29 WBC RBC Hgb Hct MCHC RDW Lymph % (Auto) [place] % (Auto) Eos % (Auto) Lymph # [place] # Seg Neutrophils % Seg Neuts % (Manual) Lymphocytes % (Manual) Seg Neutrophils # Seg Neutrophils # Man Lymphocytes # (Manual) Monocytes # (Manual) D-Dimer Heparin Anti-Xa Level ABG pH POC ABG pCO2 POC ABG pO2 ABG pO2 ABG HCO3 ABG O2 Saturation ABG Base Excess ABG Hemoglobin ABG Oxyhemoglobin VBG pH Oxyhemoglobin Sodium 133 L Potassium Chloride Carbon Dioxide 19 L BUN 109 H Creatinine 2.1 H Glucose 133 H POC Glucose 128 H 119 H Lactic Acid Calcium 7.7 L Ferritin AST Alkaline Phosphatase < 5 L Lactate Dehydrogenase Total Creatine Kinase CK-MB (CK-2) C-Reactive Protein Total Protein 4.6 L Albumin < 0.2 L Troponin T HDL Cholesterol Urine WBC (Auto) Urine Creatinine Urine Total Protein Coronavirus (PCR) Crossmatch 06/09/20 06/10/20 06/10/20 17:32 00:00 05:49 WBC RBC Hgb Hct MCHC RDW Lymph % (Auto) [place] % (Auto) Eos % (Auto) Lymph # [place] # Seg Neutrophils % Seg Neuts % (Manual) Lymphocytes % (Manual) Seg Neutrophils # Seg Neutrophils # Man Lymphocytes # (Manual) Monocytes # (Manual) D-Dimer Heparin Anti-Xa Level 0.19 L ABG pH POC ABG pCO2 POC ABG pO2 ABG pO2 ABG HCO3 ABG O2 Saturation ABG Base Excess ABG Hemoglobin ABG Oxyhemoglobin VBG pH Oxyhemoglobin Sodium Potassium Chloride Carbon Dioxide BUN Creatinine Glucose POC Glucose 106 H 117 H Lactic Acid Calcium Ferritin AST Alkaline Phosphatase Lactate Dehydrogenase Total Creatine Kinase CK-MB (CK-2) C-Reactive Protein Total Protein Albumin Troponin T HDL Cholesterol Urine WBC (Auto) Urine Creatinine Urine Total Protein Coronavirus (PCR) Crossmatch 06/10/20 06/10/20 06/10/20 05:54 07:40 11:40 WBC RBC Hgb Hct MCHC RDW Lymph % (Auto) [place] % (Auto) Eos % (Auto) Lymph # [place] # Seg Neutrophils % Seg Neuts % (Manual) Lymphocytes % (Manual) Seg Neutrophils # Seg Neutrophils # Man Lymphocytes # (Manual) Monocytes # (Manual) D-Dimer Heparin Anti-Xa Level ABG pH POC ABG pCO2 POC ABG pO2 ABG pO2 ABG HCO3 ABG O2 Saturation ABG Base Excess ABG Hemoglobin ABG Oxyhemoglobin VBG pH Oxyhemoglobin Sodium 146 H D Potassium Chloride Carbon Dioxide 20 L BUN 99 H Creatinine 1.9 H Glucose 121 H POC Glucose 127 H 138 H Lactic Acid Calcium 8.2 L Ferritin AST Alkaline Phosphatase Lactate Dehydrogenase Total Creatine Kinase CK-MB (CK-2) C-Reactive Protein Total Protein Albumin Troponin T HDL Cholesterol Urine WBC (Auto) Urine Creatinine Urine Total Protein Coronavirus (PCR) Crossmatch 06/10/20 06/10/20 06/10/20 14:44 17:31 23:22 WBC RBC Hgb Hct MCHC RDW Lymph % (Auto) [place] % (Auto) Eos % (Auto) Lymph # [place] # Seg Neutrophils % Seg Neuts % (Manual) Lymphocytes % (Manual) Seg Neutrophils # Seg Neutrophils # Man Lymphocytes # (Manual) Monocytes # (Manual) D-Dimer Heparin Anti-Xa Level 0.17 L ABG pH POC ABG pCO2 POC ABG pO2 ABG pO2 ABG HCO3 ABG O2 Saturation ABG Base Excess ABG Hemoglobin ABG Oxyhemoglobin VBG pH Oxyhemoglobin Sodium Potassium Chloride Carbon Dioxide BUN Creatinine Glucose POC Glucose 128 H 114 H Lactic Acid Calcium Ferritin AST Alkaline Phosphatase Lactate Dehydrogenase Total Creatine Kinase CK-MB (CK-2) C-Reactive Protein Total Protein Albumin Troponin T HDL Cholesterol Urine WBC (Auto) Urine Creatinine Urine Total Protein Coronavirus (PCR) Crossmatch 06/11/20 06/11/20 06/11/20 00:22 03:45 03:45 WBC 14.6 H RBC 2.77 L Hgb 7.9 L Hct 24.3 L MCHC RDW 16.8 H Lymph % (Auto) 6.6 L [place] % (Auto) 8.5 H Eos % (Auto) Lymph # 1.0 L [place] # 1.2 H Seg Neutrophils % 82.9 H Seg Neuts % (Manual) Lymphocytes % (Manual) Seg Neutrophils # 12.1 H Seg Neutrophils # Man Lymphocytes # (Manual) Monocytes # (Manual) D-Dimer Heparin Anti-Xa Level 0.24 L ABG pH POC ABG pCO2 POC ABG pO2 ABG pO2 ABG HCO3 ABG O2 Saturation ABG Base Excess ABG Hemoglobin ABG Oxyhemoglobin VBG pH Oxyhemoglobin Sodium Potassium Chloride Carbon Dioxide 20 L BUN 88 H Creatinine 1.5 H Glucose 111 H POC Glucose Lactic Acid Calcium 8.2 L Ferritin AST Alkaline Phosphatase Lactate Dehydrogenase Total Creatine Kinase CK-MB (CK-2) C-Reactive Protein Total Protein Albumin Troponin T HDL Cholesterol Urine WBC (Auto) Urine Creatinine Urine Total Protein Coronavirus (PCR) Crossmatch 06/11/20 06/11/20 06/11/20 06:03 10:22 11:11 WBC RBC Hgb Hct MCHC RDW Lymph % (Auto) [place] % (Auto) Eos % (Auto) Lymph # [place] # Seg Neutrophils % Seg Neuts % (Manual) Lymphocytes % (Manual) Seg Neutrophils # Seg Neutrophils # Man Lymphocytes # (Manual) Monocytes # (Manual) D-Dimer Heparin Anti-Xa Level 0.26 L ABG pH POC ABG pCO2 POC ABG pO2 ABG pO2 ABG HCO3 ABG O2 Saturation ABG Base Excess ABG Hemoglobin 9.6 L ABG Oxyhemoglobin VBG pH Oxyhemoglobin Sodium Potassium Chloride Carbon Dioxide BUN Creatinine Glucose POC Glucose 114 H Lactic Acid Calcium Ferritin AST Alkaline Phosphatase Lactate Dehydrogenase Total Creatine Kinase CK-MB (CK-2) C-Reactive Protein Total Protein Albumin Troponin T HDL Cholesterol Urine WBC (Auto) Urine Creatinine Urine Total Protein Coronavirus (PCR) Crossmatch 06/11/20 06/11/20 06/12/20 12:24 17:24 00:21 WBC RBC Hgb Hct MCHC RDW Lymph % (Auto) [place] % (Auto) Eos % (Auto) Lymph # [place] # Seg Neutrophils % Seg Neuts % (Manual) Lymphocytes % (Manual) Seg Neutrophils # Seg Neutrophils # Man Lymphocytes # (Manual) Monocytes # (Manual) D-Dimer Heparin Anti-Xa Level ABG pH POC ABG pCO2 POC ABG pO2 ABG pO2 ABG HCO3 ABG O2 Saturation ABG Base Excess ABG Hemoglobin ABG Oxyhemoglobin VBG pH Oxyhemoglobin Sodium Potassium Chloride Carbon Dioxide BUN Creatinine Glucose POC Glucose 119 H 126 H 117 H Lactic Acid Calcium Ferritin AST Alkaline Phosphatase Lactate Dehydrogenase Total Creatine Kinase CK-MB (CK-2) C-Reactive Protein Total Protein Albumin Troponin T HDL Cholesterol Urine WBC (Auto) Urine Creatinine Urine Total Protein Coronavirus (PCR) Crossmatch 06/12/20 06/12/20 06/12/20 02:46 02:46 05:46 WBC 13.2 H RBC 2.83 L Hgb 8.3 L Hct 24.3 L MCHC RDW 16.6 H Lymph % (Auto) 6.2 L [place] % (Auto) 9.5 H Eos % (Auto) Lymph # 0.8 L [place] # 1.3 H Seg Neutrophils % 81.9 H Seg Neuts % (Manual) Lymphocytes % (Manual) Seg Neutrophils # 10.9 H Seg Neutrophils # Man Lymphocytes # (Manual) Monocytes # (Manual) D-Dimer Heparin Anti-Xa Level ABG pH POC ABG pCO2 POC ABG pO2 ABG pO2 ABG HCO3 ABG O2 Saturation ABG Base Excess ABG Hemoglobin ABG Oxyhemoglobin VBG pH Oxyhemoglobin Sodium Potassium 3.5 L Chloride Carbon Dioxide BUN 77 H Creatinine 1.3 H Glucose POC Glucose 132 H Lactic Acid Calcium 8.3 L Ferritin AST Alkaline Phosphatase Lactate Dehydrogenase Total Creatine Kinase CK-MB (CK-2) C-Reactive Protein Total Protein Albumin Troponin T HDL Cholesterol Urine WBC (Auto) Urine Creatinine Urine Total Protein Coronavirus (PCR) Crossmatch 06/12/20 06/12/20 06/12/20 09:20 12:16 17:48 WBC RBC Hgb Hct MCHC RDW Lymph % (Auto) [place] % (Auto) Eos % (Auto) Lymph # [place] # Seg Neutrophils % Seg Neuts % (Manual) Lymphocytes % (Manual) Seg Neutrophils # Seg Neutrophils # Man Lymphocytes # (Manual) Monocytes # (Manual) D-Dimer Heparin Anti-Xa Level ABG pH POC ABG pCO2 POC ABG pO2 ABG pO2 91.1 H ABG HCO3 ABG O2 Saturation ABG Base Excess ABG Hemoglobin ABG Oxyhemoglobin VBG pH Oxyhemoglobin 94.8 L Sodium Potassium Chloride Carbon Dioxide BUN Creatinine Glucose POC Glucose 167 H 182 H Lactic Acid Calcium Ferritin AST Alkaline Phosphatase Lactate Dehydrogenase Total Creatine Kinase CK-MB (CK-2) C-Reactive Protein Total Protein Albumin Troponin T HDL Cholesterol Urine WBC (Auto) Urine Creatinine Urine Total Protein Coronavirus (PCR) Crossmatch 06/13/20 06/13/20 06/13/20 00:08 05:37 09:09 WBC RBC Hgb Hct MCHC RDW Lymph % (Auto) [place] % (Auto) Eos % (Auto) Lymph # [place] # Seg Neutrophils % Seg Neuts % (Manual) Lymphocytes % (Manual) Seg Neutrophils # Seg Neutrophils # Man Lymphocytes # (Manual) Monocytes # (Manual) D-Dimer Heparin Anti-Xa Level 0.86 H ABG pH POC ABG pCO2 POC ABG pO2 ABG pO2 ABG HCO3 ABG O2 Saturation ABG Base Excess ABG Hemoglobin ABG Oxyhemoglobin VBG pH Oxyhemoglobin Sodium Potassium Chloride Carbon Dioxide BUN Creatinine Glucose POC Glucose 142 H 119 H Lactic Acid Calcium Ferritin AST Alkaline Phosphatase Lactate Dehydrogenase Total Creatine Kinase CK-MB (CK-2) C-Reactive Protein Total Protein Albumin Troponin T HDL Cholesterol Urine WBC (Auto) Urine Creatinine Urine Total Protein Coronavirus (PCR) Crossmatch 06/13/20 06/13/20 06/13/20 12:28 17:55 21:17 WBC RBC Hgb Hct MCHC RDW Lymph % (Auto) [place] % (Auto) Eos % (Auto) Lymph # [place] # Seg Neutrophils % Seg Neuts % (Manual) Lymphocytes % (Manual) Seg Neutrophils # Seg Neutrophils # Man Lymphocytes # (Manual) Monocytes # (Manual) D-Dimer Heparin Anti-Xa Level ABG pH POC ABG pCO2 POC ABG pO2 ABG pO2 ABG HCO3 ABG O2 Saturation ABG Base Excess ABG Hemoglobin ABG Oxyhemoglobin VBG pH Oxyhemoglobin Sodium Potassium Chloride Carbon Dioxide BUN 61 H Creatinine Glucose 131 H POC Glucose 165 H 174 H Lactic Acid Calcium Ferritin AST Alkaline Phosphatase Lactate Dehydrogenase Total Creatine Kinase CK-MB (CK-2) C-Reactive Protein Total Protein Albumin Troponin T HDL Cholesterol Urine WBC (Auto) Urine Creatinine Urine Total Protein Coronavirus (PCR) Crossmatch 06/13/20 06/13/20 06/14/20 21:17 23:50 05:34 WBC RBC Hgb Hct MCHC RDW Lymph % (Auto) [place] % (Auto) Eos % (Auto) Lymph # [place] # Seg Neutrophils % Seg Neuts % (Manual) Lymphocytes % (Manual) Seg Neutrophils # Seg Neutrophils # Man Lymphocytes # (Manual) Monocytes # (Manual) D-Dimer Heparin Anti-Xa Level 0.72 H ABG pH POC ABG pCO2 POC ABG pO2 ABG pO2 ABG HCO3 ABG O2 Saturation ABG Base Excess ABG Hemoglobin ABG Oxyhemoglobin VBG pH Oxyhemoglobin Sodium 146 H Potassium Chloride 107.6 H Carbon Dioxide BUN 61 H Creatinine 1.3 H Glucose 135 H POC Glucose 146 H Lactic Acid Calcium Ferritin AST Alkaline Phosphatase Lactate Dehydrogenase Total Creatine Kinase CK-MB (CK-2) C-Reactive Protein Total Protein Albumin Troponin T HDL Cholesterol Urine WBC (Auto) Urine Creatinine Urine Total Protein Coronavirus (PCR) Crossmatch 06/14/20 06/14/20 06/14/20 06:11 09:28 11:30 WBC RBC Hgb Hct MCHC RDW Lymph % (Auto) [place] % (Auto) Eos % (Auto) Lymph # [place] # Seg Neutrophils % Seg Neuts % (Manual) Lymphocytes % (Manual) Seg Neutrophils # Seg Neutrophils # Man Lymphocytes # (Manual) Monocytes # (Manual) D-Dimer Heparin Anti-Xa Level 0.90 H ABG pH POC ABG pCO2 POC ABG pO2 ABG pO2 ABG HCO3 ABG O2 Saturation ABG Base Excess ABG Hemoglobin ABG Oxyhemoglobin VBG pH Oxyhemoglobin Sodium Potassium Chloride Carbon Dioxide BUN Creatinine Glucose POC Glucose 141 H 186 H Lactic Acid Calcium Ferritin AST Alkaline Phosphatase Lactate Dehydrogenase Total Creatine Kinase CK-MB (CK-2) C-Reactive Protein Total Protein Albumin Troponin T HDL Cholesterol Urine WBC (Auto) Urine Creatinine Urine Total Protein Coronavirus (PCR) Crossmatch 06/14/20 06/14/20 06/14/20 16:07 18:16 23:51 WBC RBC Hgb Hct MCHC RDW Lymph % (Auto) [place] % (Auto) Eos % (Auto) Lymph # [place] # Seg Neutrophils % Seg Neuts % (Manual) Lymphocytes % (Manual) Seg Neutrophils # Seg Neutrophils # Man Lymphocytes # (Manual) Monocytes # (Manual) D-Dimer Heparin Anti-Xa Level 0.82 H ABG pH POC ABG pCO2 POC ABG pO2 ABG pO2 ABG HCO3 ABG O2 Saturation ABG Base Excess ABG Hemoglobin ABG Oxyhemoglobin VBG pH Oxyhemoglobin Sodium Potassium Chloride Carbon Dioxide BUN Creatinine Glucose POC Glucose 106 H 154 H Lactic Acid Calcium Ferritin AST Alkaline Phosphatase Lactate Dehydrogenase Total Creatine Kinase CK-MB (CK-2) C-Reactive Protein Total Protein Albumin Troponin T HDL Cholesterol Urine WBC (Auto) Urine Creatinine Urine Total Protein Coronavirus (PCR) Crossmatch 06/15/20 06/15/20 06/15/20 04:24 04:24 05:59 WBC RBC 2.75 L Hgb 7.9 L Hct 24.0 L MCHC RDW 16.4 H Lymph % (Auto) 12.9 L [place] % (Auto) 8.7 H Eos % (Auto) 4.6 H Lymph # 1.1 L [place] # Seg Neutrophils % 73.2 H Seg Neuts % (Manual) Lymphocytes % (Manual) Seg Neutrophils # Seg Neutrophils # Man Lymphocytes # (Manual) Monocytes # (Manual) D-Dimer Heparin Anti-Xa Level ABG pH POC ABG pCO2 POC ABG pO2 ABG pO2 ABG HCO3 ABG O2 Saturation ABG Base Excess ABG Hemoglobin ABG Oxyhemoglobin VBG pH Oxyhemoglobin Sodium Potassium 3.4 L Chloride Carbon Dioxide BUN 55 H Creatinine 1.3 H Glucose 142 H POC Glucose 131 H Lactic Acid Calcium Ferritin AST Alkaline Phosphatase Lactate Dehydrogenase Total Creatine Kinase CK-MB (CK-2) C-Reactive Protein Total Protein Albumin Troponin T HDL Cholesterol Urine WBC (Auto) Urine Creatinine Urine Total Protein Coronavirus (PCR) Crossmatch 06/15/20 06/15/20 06/16/20 12:33 17:07 00:22 WBC RBC Hgb Hct MCHC RDW Lymph % (Auto) [place] % (Auto) Eos % (Auto) Lymph # [place] # Seg Neutrophils % Seg Neuts % (Manual) Lymphocytes % (Manual) Seg Neutrophils # Seg Neutrophils # Man Lymphocytes # (Manual) Monocytes # (Manual) D-Dimer Heparin Anti-Xa Level 0.21 L ABG pH POC ABG pCO2 POC ABG pO2 ABG pO2 ABG HCO3 ABG O2 Saturation ABG Base Excess ABG Hemoglobin ABG Oxyhemoglobin VBG pH Oxyhemoglobin Sodium Potassium Chloride Carbon Dioxide BUN Creatinine Glucose POC Glucose 180 H 185 H Lactic Acid Calcium Ferritin AST Alkaline Phosphatase Lactate Dehydrogenase Total Creatine Kinase CK-MB (CK-2) C-Reactive Protein Total Protein Albumin Troponin T HDL Cholesterol Urine WBC (Auto) Urine Creatinine Urine Total Protein Coronavirus (PCR) Crossmatch 06/16/20 06/16/20 06/16/20 01:45 08:06 09:15 WBC RBC Hgb Hct MCHC RDW Lymph % (Auto) [place] % (Auto) Eos % (Auto) Lymph # [place] # Seg Neutrophils % Seg Neuts % (Manual) Lymphocytes % (Manual) Seg Neutrophils # Seg Neutrophils # Man Lymphocytes # (Manual) Monocytes # (Manual) D-Dimer Heparin Anti-Xa Level ABG pH POC ABG pCO2 POC ABG pO2 ABG pO2 ABG HCO3 ABG O2 Saturation ABG Base Excess ABG Hemoglobin ABG Oxyhemoglobin VBG pH Oxyhemoglobin Sodium Potassium Chloride Carbon Dioxide BUN 49 H Creatinine Glucose 154 H POC Glucose 140 H 171 H Lactic Acid Calcium Ferritin AST Alkaline Phosphatase Lactate Dehydrogenase Total Creatine Kinase CK-MB (CK-2) C-Reactive Protein Total Protein Albumin Troponin T HDL Cholesterol Urine WBC (Auto) Urine Creatinine Urine Total Protein Coronavirus (PCR) Crossmatch 06/16/20 06/16/20 06/16/20 10:46 12:33 17:54 WBC RBC Hgb Hct MCHC RDW Lymph % (Auto) [place] % (Auto) Eos % (Auto) Lymph # [place] # Seg Neutrophils % Seg Neuts % (Manual) Lymphocytes % (Manual) Seg Neutrophils # Seg Neutrophils # Man Lymphocytes # (Manual) Monocytes # (Manual) D-Dimer Heparin Anti-Xa Level 0.12 L ABG pH POC ABG pCO2 POC ABG pO2 ABG pO2 ABG HCO3 ABG O2 Saturation ABG Base Excess ABG Hemoglobin ABG Oxyhemoglobin VBG pH Oxyhemoglobin Sodium Potassium Chloride Carbon Dioxide BUN Creatinine Glucose POC Glucose 166 H 151 H Lactic Acid Calcium Ferritin AST Alkaline Phosphatase Lactate Dehydrogenase Total Creatine Kinase CK-MB (CK-2) C-Reactive Protein Total Protein Albumin Troponin T HDL Cholesterol Urine WBC (Auto) Urine Creatinine Urine Total Protein Coronavirus (PCR) Crossmatch 06/16/20 06/17/20 06/17/20 18:47 00:00 02:19 WBC RBC Hgb Hct MCHC RDW Lymph % (Auto) [place] % (Auto) Eos % (Auto) Lymph # [place] # Seg Neutrophils % Seg Neuts % (Manual) Lymphocytes % (Manual) Seg Neutrophils # Seg Neutrophils # Man Lymphocytes # (Manual) Monocytes # (Manual) D-Dimer Heparin Anti-Xa Level 0.73 H 0.77 H ABG pH POC ABG pCO2 POC ABG pO2 ABG pO2 ABG HCO3 ABG O2 Saturation ABG Base Excess ABG Hemoglobin ABG Oxyhemoglobin VBG pH Oxyhemoglobin Sodium Potassium Chloride Carbon Dioxide BUN Creatinine Glucose POC Glucose 139 H Lactic Acid Calcium Ferritin AST Alkaline Phosphatase Lactate Dehydrogenase Total Creatine Kinase CK-MB (CK-2) C-Reactive Protein Total Protein Albumin Troponin T HDL Cholesterol Urine WBC (Auto) Urine Creatinine Urine Total Protein Coronavirus (PCR) Crossmatch 06/17/20 06/17/20 06/17/20 06:07 11:42 16:43 WBC RBC Hgb Hct MCHC RDW Lymph % (Auto) [place] % (Auto) Eos % (Auto) Lymph # [place] # Seg Neutrophils % Seg Neuts % (Manual) Lymphocytes % (Manual) Seg Neutrophils # Seg Neutrophils # Man Lymphocytes # (Manual) Monocytes # (Manual) D-Dimer Heparin Anti-Xa Level 0.73 H ABG pH POC ABG pCO2 POC ABG pO2 ABG pO2 ABG HCO3 ABG O2 Saturation ABG Base Excess ABG Hemoglobin ABG Oxyhemoglobin VBG pH Oxyhemoglobin Sodium Potassium Chloride Carbon Dioxide BUN Creatinine Glucose POC Glucose 169 H 169 H Lactic Acid Calcium Ferritin AST Alkaline Phosphatase Lactate Dehydrogenase Total Creatine Kinase CK-MB (CK-2) C-Reactive Protein Total Protein Albumin Troponin T HDL Cholesterol Urine WBC (Auto) Urine Creatinine Urine Total Protein Coronavirus (PCR) Crossmatch 06/17/20 06/17/20 06/17/20 18:18 23:08 23:16 WBC RBC Hgb Hct MCHC RDW Lymph % (Auto) [place] % (Auto) Eos % (Auto) Lymph # [place] # Seg Neutrophils % Seg Neuts % (Manual) Lymphocytes % (Manual) Seg Neutrophils # Seg Neutrophils # Man Lymphocytes # (Manual) Monocytes # (Manual) D-Dimer Heparin Anti-Xa Level 0.71 H ABG pH POC ABG pCO2 POC ABG pO2 ABG pO2 ABG HCO3 ABG O2 Saturation ABG Base Excess ABG Hemoglobin ABG Oxyhemoglobin VBG pH Oxyhemoglobin Sodium Potassium Chloride Carbon Dioxide BUN Creatinine Glucose POC Glucose 159 H 134 H Lactic Acid Calcium Ferritin AST Alkaline Phosphatase Lactate Dehydrogenase Total Creatine Kinase CK-MB (CK-2) C-Reactive Protein Total Protein Albumin Troponin T HDL Cholesterol Urine WBC (Auto) Urine Creatinine Urine Total Protein Coronavirus (PCR) Crossmatch 06/18/20 06/18/20 06/18/20 04:42 05:52 11:50 WBC RBC Hgb Hct MCHC RDW Lymph % (Auto) [place] % (Auto) Eos % (Auto) Lymph # [place] # Seg Neutrophils % Seg Neuts % (Manual) Lymphocytes % (Manual) Seg Neutrophils # Seg Neutrophils # Man Lymphocytes # (Manual) Monocytes # (Manual) D-Dimer Heparin Anti-Xa Level ABG pH POC ABG pCO2 POC ABG pO2 ABG pO2 ABG HCO3 ABG O2 Saturation ABG Base Excess ABG Hemoglobin ABG Oxyhemoglobin VBG pH Oxyhemoglobin Sodium Potassium Chloride Carbon Dioxide BUN 44 H Creatinine Glucose 115 H POC Glucose 171 H 167 H Lactic Acid Calcium Ferritin AST Alkaline Phosphatase Lactate Dehydrogenase Total Creatine Kinase CK-MB (CK-2) C-Reactive Protein Total Protein Albumin Troponin T HDL Cholesterol Urine WBC (Auto) Urine Creatinine Urine Total Protein Coronavirus (PCR) Crossmatch 06/18/20 06/19/20 06/19/20 23:46 05:48 07:52 WBC RBC Hgb Hct MCHC RDW Lymph % (Auto) [place] % (Auto) Eos % (Auto) Lymph # [place] # Seg Neutrophils % Seg Neuts % (Manual) Lymphocytes % (Manual) Seg Neutrophils # Seg Neutrophils # Man Lymphocytes # (Manual) Monocytes # (Manual) D-Dimer Heparin Anti-Xa Level ABG pH POC ABG pCO2 POC ABG pO2 ABG pO2 ABG HCO3 ABG O2 Saturation ABG Base Excess ABG Hemoglobin ABG Oxyhemoglobin VBG pH Oxyhemoglobin Sodium Potassium Chloride Carbon Dioxide BUN Creatinine Glucose POC Glucose 130 H 207 H 175 H Lactic Acid Calcium Ferritin AST Alkaline Phosphatase Lactate Dehydrogenase Total Creatine Kinase CK-MB (CK-2) C-Reactive Protein Total Protein Albumin Troponin T HDL Cholesterol Urine WBC (Auto) Urine Creatinine Urine Total Protein Coronavirus (PCR) Crossmatch 06/19/20 06/19/20 06/20/20 11:42 22:54 05:17 WBC RBC Hgb Hct MCHC RDW Lymph % (Auto) [place] % (Auto) Eos % (Auto) Lymph # [place] # Seg Neutrophils % Seg Neuts % (Manual) Lymphocytes % (Manual) Seg Neutrophils # Seg Neutrophils # Man Lymphocytes # (Manual) Monocytes # (Manual) D-Dimer Heparin Anti-Xa Level ABG pH POC ABG pCO2 POC ABG pO2 ABG pO2 ABG HCO3 ABG O2 Saturation ABG Base Excess ABG Hemoglobin ABG Oxyhemoglobin VBG pH Oxyhemoglobin Sodium Potassium Chloride Carbon Dioxide BUN Creatinine Glucose POC Glucose 166 H 135 H 218 H Lactic Acid Calcium Ferritin AST Alkaline Phosphatase Lactate Dehydrogenase Total Creatine Kinase CK-MB (CK-2) C-Reactive Protein Total Protein Albumin Troponin T HDL Cholesterol Urine WBC (Auto) Urine Creatinine Urine Total Protein Coronavirus (PCR) Crossmatch 06/20/20 06/20/20 06/20/20 12:04 16:25 16:35 WBC RBC Hgb Hct MCHC RDW Lymph % (Auto) [place] % (Auto) Eos % (Auto) Lymph # [place] # Seg Neutrophils % Seg Neuts % (Manual) Lymphocytes % (Manual) Seg Neutrophils # Seg Neutrophils # Man Lymphocytes # (Manual) Monocytes # (Manual) D-Dimer Heparin Anti-Xa Level ABG pH POC ABG pCO2 POC ABG pO2 ABG pO2 59.6 L ABG HCO3 28.7 H ABG O2 Saturation 93.5 L ABG Base Excess 3.4 H ABG Hemoglobin 7.2 L ABG Oxyhemoglobin VBG pH Oxyhemoglobin 91.3 L Sodium Potassium Chloride Carbon Dioxide BUN Creatinine Glucose POC Glucose 194 H 137 H Lactic Acid Calcium Ferritin AST Alkaline Phosphatase Lactate Dehydrogenase Total Creatine Kinase CK-MB (CK-2) C-Reactive Protein Total Protein Albumin Troponin T HDL Cholesterol Urine WBC (Auto) Urine Creatinine Urine Total Protein Coronavirus (PCR) Crossmatch 06/20/20 06/21/20 06/21/20 23:59 06:25 12:01 WBC RBC Hgb Hct MCHC RDW Lymph % (Auto) [place] % (Auto) Eos % (Auto) Lymph # [place] # Seg Neutrophils % Seg Neuts % (Manual) Lymphocytes % (Manual) Seg Neutrophils # Seg Neutrophils # Man Lymphocytes # (Manual) Monocytes # (Manual) D-Dimer Heparin Anti-Xa Level ABG pH POC ABG pCO2 POC ABG pO2 ABG pO2 ABG HCO3 ABG O2 Saturation ABG Base Excess ABG Hemoglobin ABG Oxyhemoglobin VBG pH Oxyhemoglobin Sodium Potassium Chloride Carbon Dioxide BUN Creatinine Glucose POC Glucose 156 H 177 H 195 H Lactic Acid Calcium Ferritin AST Alkaline Phosphatase Lactate Dehydrogenase Total Creatine Kinase CK-MB (CK-2) C-Reactive Protein Total Protein Albumin Troponin T HDL Cholesterol Urine WBC (Auto) Urine Creatinine Urine Total Protein Coronavirus (PCR) Crossmatch 06/21/20 06/21/20 06/22/20 17:04 21:51 05:06 WBC RBC Hgb Hct MCHC RDW Lymph % (Auto) [place] % (Auto) Eos % (Auto) Lymph # [place] # Seg Neutrophils % Seg Neuts % (Manual) Lymphocytes % (Manual) Seg Neutrophils # Seg Neutrophils # Man Lymphocytes # (Manual) Monocytes # (Manual) D-Dimer Heparin Anti-Xa Level ABG pH POC ABG pCO2 POC ABG pO2 ABG pO2 ABG HCO3 ABG O2 Saturation ABG Base Excess ABG Hemoglobin ABG Oxyhemoglobin VBG pH Oxyhemoglobin Sodium Potassium Chloride Carbon Dioxide BUN Creatinine Glucose POC Glucose 156 H 154 H 167 H Lactic Acid Calcium Ferritin AST Alkaline Phosphatase Lactate Dehydrogenase Total Creatine Kinase CK-MB (CK-2) C-Reactive Protein Total Protein Albumin Troponin T HDL Cholesterol Urine WBC (Auto) Urine Creatinine Urine Total Protein Coronavirus (PCR) Crossmatch 06/22/20 06/22/20 06/22/20 11:20 15:27 16:58 WBC RBC Hgb Hct MCHC RDW Lymph % (Auto) [place] % (Auto) Eos % (Auto) Lymph # [place] # Seg Neutrophils % Seg Neuts % (Manual) Lymphocytes % (Manual) Seg Neutrophils # Seg Neutrophils # Man Lymphocytes # (Manual) Monocytes # (Manual) D-Dimer Heparin Anti-Xa Level ABG pH 7.206 L POC ABG pCO2 79.9 H POC ABG pO2 ABG pO2 ABG HCO3 ABG O2 Saturation ABG Base Excess ABG Hemoglobin 8.3 L ABG Oxyhemoglobin VBG pH Oxyhemoglobin Sodium Potassium Chloride Carbon Dioxide BUN Creatinine Glucose POC Glucose 181 H 230 H Lactic Acid Calcium Ferritin AST Alkaline Phosphatase Lactate Dehydrogenase Total Creatine Kinase CK-MB (CK-2) C-Reactive Protein Total Protein Albumin Troponin T HDL Cholesterol Urine WBC (Auto) Urine Creatinine Urine Total Protein Coronavirus (PCR) Crossmatch 06/22/20 06/23/20 06/23/20 22:26 05:49 05:49 WBC RBC 2.58 L Hgb 7.4 L Hct 23.2 L MCHC RDW 17.0 H Lymph % (Auto) [place] % (Auto) 11.2 H Eos % (Auto) Lymph # 1.0 L [place] # Seg Neutrophils % Seg Neuts % (Manual) Lymphocytes % (Manual) Seg Neutrophils # Seg Neutrophils # Man Lymphocytes # (Manual) Monocytes # (Manual) D-Dimer Heparin Anti-Xa Level ABG pH POC ABG pCO2 POC ABG pO2 ABG pO2 ABG HCO3 ABG O2 Saturation ABG Base Excess ABG Hemoglobin ABG Oxyhemoglobin VBG pH Oxyhemoglobin Sodium Potassium Chloride Carbon Dioxide BUN 68 H Creatinine 2.4 H Glucose 198 H POC Glucose 195 H Lactic Acid Calcium Ferritin AST Alkaline Phosphatase Lactate Dehydrogenase Total Creatine Kinase CK-MB (CK-2) C-Reactive Protein Total Protein Albumin Troponin T HDL Cholesterol Urine WBC (Auto) Urine Creatinine Urine Total Protein Coronavirus (PCR) Crossmatch 06/23/20 06/23/20 06/23/20 05:50 12:29 12:34 WBC RBC Hgb Hct MCHC RDW Lymph % (Auto) [place] % (Auto) Eos % (Auto) Lymph # [place] # Seg Neutrophils % Seg Neuts % (Manual) Lymphocytes % (Manual) Seg Neutrophils # Seg Neutrophils # Man Lymphocytes # (Manual) Monocytes # (Manual) D-Dimer Heparin Anti-Xa Level ABG pH POC ABG pCO2 54.7 H POC ABG pO2 68.8 L ABG pO2 ABG HCO3 ABG O2 Saturation ABG Base Excess ABG Hemoglobin 9.8 L ABG Oxyhemoglobin 92.6 L VBG pH Oxyhemoglobin Sodium Potassium Chloride Carbon Dioxide BUN Creatinine Glucose POC Glucose 202 H 218 H Lactic Acid Calcium Ferritin AST Alkaline Phosphatase Lactate Dehydrogenase Total Creatine Kinase CK-MB (CK-2) C-Reactive Protein Total Protein Albumin Troponin T HDL Cholesterol Urine WBC (Auto) Urine Creatinine Urine Total Protein Coronavirus (PCR) Crossmatch 06/23/20 06/23/20 06/24/20 16:02 22:22 01:06 WBC RBC Hgb Hct MCHC RDW Lymph % (Auto) [place] % (Auto) Eos % (Auto) Lymph # [place] # Seg Neutrophils % Seg Neuts % (Manual) Lymphocytes % (Manual) Seg Neutrophils # Seg Neutrophils # Man Lymphocytes # (Manual) Monocytes # (Manual) D-Dimer Heparin Anti-Xa Level ABG pH POC ABG pCO2 POC ABG pO2 ABG pO2 ABG HCO3 ABG O2 Saturation ABG Base Excess ABG Hemoglobin ABG Oxyhemoglobin VBG pH Oxyhemoglobin Sodium Potassium Chloride Carbon Dioxide BUN Creatinine Glucose POC Glucose 190 H 166 H 171 H Lactic Acid Calcium Ferritin AST Alkaline Phosphatase Lactate Dehydrogenase Total Creatine Kinase CK-MB (CK-2) C-Reactive Protein Total Protein Albumin Troponin T HDL Cholesterol Urine WBC (Auto) Urine Creatinine Urine Total Protein Coronavirus (PCR) Crossmatch 06/24/20 06/24/20 06/24/20 04:48 05:35 11:48 WBC RBC Hgb Hct MCHC RDW Lymph % (Auto) [place] % (Auto) Eos % (Auto) Lymph # [place] # Seg Neutrophils % Seg Neuts % (Manual) Lymphocytes % (Manual) Seg Neutrophils # Seg Neutrophils # Man Lymphocytes # (Manual) Monocytes # (Manual) D-Dimer Heparin Anti-Xa Level ABG pH POC ABG pCO2 POC ABG pO2 ABG pO2 ABG HCO3 ABG O2 Saturation ABG Base Excess ABG Hemoglobin ABG Oxyhemoglobin VBG pH Oxyhemoglobin Sodium Potassium Chloride Carbon Dioxide BUN 75 H Creatinine 2.6 H Glucose 179 H POC Glucose 172 H 153 H Lactic Acid Calcium Ferritin AST Alkaline Phosphatase Lactate Dehydrogenase Total Creatine Kinase CK-MB (CK-2) C-Reactive Protein Total Protein Albumin Troponin T HDL Cholesterol Urine WBC (Auto) Urine Creatinine Urine Total Protein Coronavirus (PCR) Crossmatch 06/24/20 06/24/20 06/25/20 16:38 21:52 12:00 WBC RBC Hgb Hct MCHC RDW Lymph % (Auto) [place] % (Auto) Eos % (Auto) Lymph # [place] # Seg Neutrophils % Seg Neuts % (Manual) Lymphocytes % (Manual) Seg Neutrophils # Seg Neutrophils # Man Lymphocytes # (Manual) Monocytes # (Manual) D-Dimer Heparin Anti-Xa Level ABG pH POC ABG pCO2 POC ABG pO2 ABG pO2 ABG HCO3 ABG O2 Saturation ABG Base Excess ABG Hemoglobin ABG Oxyhemoglobin VBG pH Oxyhemoglobin Sodium Potassium Chloride Carbon Dioxide BUN Creatinine Glucose POC Glucose 123 H 115 H 203 H Lactic Acid Calcium Ferritin AST Alkaline Phosphatase Lactate Dehydrogenase Total Creatine Kinase CK-MB (CK-2) C-Reactive Protein Total Protein Albumin Troponin T HDL Cholesterol Urine WBC (Auto) Urine Creatinine Urine Total Protein Coronavirus (PCR) Crossmatch 06/25/20 06/25/20 06/25/20 15:43 16:37 23:02 WBC RBC Hgb Hct MCHC RDW Lymph % (Auto) [place] % (Auto) Eos % (Auto) Lymph # [place] # Seg Neutrophils % Seg Neuts % (Manual) Lymphocytes % (Manual) Seg Neutrophils # Seg Neutrophils # Man Lymphocytes # (Manual) Monocytes # (Manual) D-Dimer Heparin Anti-Xa Level ABG pH POC ABG pCO2 POC ABG pO2 ABG pO2 ABG HCO3 ABG O2 Saturation ABG Base Excess ABG Hemoglobin ABG Oxyhemoglobin VBG pH Oxyhemoglobin Sodium Potassium Chloride Carbon Dioxide BUN 71 H Creatinine 1.8 H Glucose 170 H POC Glucose 191 H 126 H Lactic Acid Calcium 8.2 L Ferritin AST Alkaline Phosphatase Lactate Dehydrogenase Total Creatine Kinase CK-MB (CK-2) C-Reactive Protein Total Protein Albumin Troponin T HDL Cholesterol Urine WBC (Auto) Urine Creatinine Urine Total Protein Coronavirus (PCR) Crossmatch 06/26/20 06/26/20 06/26/20 06:34 06:34 09:27 WBC RBC 2.41 L Hgb 6.9 L Hct 21.5 L MCHC RDW 16.7 H Lymph % (Auto) 10.9 L [place] % (Auto) 9.6 H Eos % (Auto) Lymph # 0.7 L [place] # Seg Neutrophils % 75.4 H Seg Neuts % (Manual) Lymphocytes % (Manual) Seg Neutrophils # Seg Neutrophils # Man Lymphocytes # (Manual) Monocytes # (Manual) D-Dimer Heparin Anti-Xa Level ABG pH POC ABG pCO2 POC ABG pO2 ABG pO2 ABG HCO3 ABG O2 Saturation ABG Base Excess ABG Hemoglobin ABG Oxyhemoglobin VBG pH Oxyhemoglobin Sodium Potassium Chloride Carbon Dioxide BUN 77 H Creatinine 1.9 H Glucose 190 H POC Glucose Lactic Acid Calcium Ferritin AST Alkaline Phosphatase Lactate Dehydrogenase Total Creatine Kinase CK-MB (CK-2) C-Reactive Protein Total Protein Albumin Troponin T HDL Cholesterol Urine WBC (Auto) Urine Creatinine Urine Total Protein Coronavirus (PCR) Crossmatch See Detail 06/26/20 06/26/20 06/26/20 12:15 16:28 17:28 WBC RBC Hgb Hct MCHC RDW Lymph % (Auto) [place] % (Auto) Eos % (Auto) Lymph # [place] # Seg Neutrophils % Seg Neuts % (Manual) Lymphocytes % (Manual) Seg Neutrophils # Seg Neutrophils # Man Lymphocytes # (Manual) Monocytes # (Manual) D-Dimer Heparin Anti-Xa Level ABG pH POC ABG pCO2 POC ABG pO2 ABG pO2 ABG HCO3 ABG O2 Saturation ABG Base Excess ABG Hemoglobin ABG Oxyhemoglobin VBG pH Oxyhemoglobin Sodium Potassium Chloride Carbon Dioxide BUN Creatinine Glucose POC Glucose 187 H 149 H 189 H Lactic Acid Calcium Ferritin AST Alkaline Phosphatase Lactate Dehydrogenase Total Creatine Kinase CK-MB (CK-2) C-Reactive Protein Total Protein Albumin Troponin T HDL Cholesterol Urine WBC (Auto) Urine Creatinine Urine Total Protein Coronavirus (PCR) Crossmatch 06/26/20 06/26/20 06/26/20 18:30 18:30 18:30 WBC RBC 2.87 L Hgb 8.2 L Hct 25.9 L MCHC RDW 17.8 H Lymph % (Auto) [place] % (Auto) Eos % (Auto) Lymph # [place] # Seg Neutrophils % Seg Neuts % (Manual) 83.0 H Lymphocytes % (Manual) 8.0 L Seg Neutrophils # Seg Neutrophils # Man Lymphocytes # (Manual) 0.6 L Monocytes # (Manual) D-Dimer Heparin Anti-Xa Level ABG pH POC ABG pCO2 POC ABG pO2 ABG pO2 ABG HCO3 ABG O2 Saturation ABG Base Excess ABG Hemoglobin ABG Oxyhemoglobin VBG pH Oxyhemoglobin Sodium Potassium Chloride Carbon Dioxide BUN 80 H Creatinine 2.1 H Glucose 260 H POC Glucose Lactic Acid 4.30 H* Calcium 8.3 L Ferritin AST Alkaline Phosphatase Lactate Dehydrogenase Total Creatine Kinase CK-MB (CK-2) C-Reactive Protein Total Protein Albumin Troponin T HDL Cholesterol Urine WBC (Auto) Urine Creatinine Urine Total Protein Coronavirus (PCR) Crossmatch 06/26/20 06/27/20 06/27/20 18:50 01:00 04:29 WBC RBC Hgb Hct MCHC RDW Lymph % (Auto) [place] % (Auto) Eos % (Auto) Lymph # [place] # Seg Neutrophils % Seg Neuts % (Manual) Lymphocytes % (Manual) Seg Neutrophils # Seg Neutrophils # Man Lymphocytes # (Manual) Monocytes # (Manual) D-Dimer Heparin Anti-Xa Level ABG pH 7.296 L POC ABG pCO2 POC ABG pO2 ABG pO2 116.5 H 200.5 H ABG HCO3 28.4 H ABG O2 Saturation 99.3 H ABG Base Excess 3.7 H ABG Hemoglobin 5.6 L ABG Oxyhemoglobin VBG pH Oxyhemoglobin Sodium Potassium Chloride Carbon Dioxide BUN Creatinine Glucose POC Glucose 123 H Lactic Acid Calcium Ferritin AST Alkaline Phosphatase Lactate Dehydrogenase Total Creatine Kinase CK-MB (CK-2) C-Reactive Protein Total Protein Albumin Troponin T HDL Cholesterol Urine WBC (Auto) Urine Creatinine Urine Total Protein Coronavirus (PCR) Crossmatch 06/27/20 06/27/20 06/27/20 05:00 05:00 05:00 WBC RBC 2.75 L Hgb 7.9 L Hct 24.3 L MCHC RDW 17.1 H Lymph % (Auto) 8.5 L [place] % (Auto) 12.6 H Eos % (Auto) Lymph # 0.7 L [place] # 1.0 H Seg Neutrophils % 77.5 H Seg Neuts % (Manual) Lymphocytes % (Manual) Seg Neutrophils # Seg Neutrophils # Man Lymphocytes # (Manual) Monocytes # (Manual) D-Dimer Heparin Anti-Xa Level ABG pH POC ABG pCO2 POC ABG pO2 ABG pO2 ABG HCO3 ABG O2 Saturation ABG Base Excess ABG Hemoglobin ABG Oxyhemoglobin VBG pH Oxyhemoglobin Sodium Potassium Chloride Carbon Dioxide BUN 80 H Creatinine 2.0 H Glucose 129 H POC Glucose Lactic Acid 0.60 L Calcium 7.9 L Ferritin AST Alkaline Phosphatase Lactate Dehydrogenase Total Creatine Kinase CK-MB (CK-2) C-Reactive Protein Total Protein Albumin Troponin T HDL Cholesterol Urine WBC (Auto) Urine Creatinine Urine Total Protein Coronavirus (PCR) Crossmatch 06/27/20 06/27/20 06/27/20 05:23 13:46 17:25 WBC RBC Hgb Hct MCHC RDW Lymph % (Auto) [place] % (Auto) Eos % (Auto) Lymph # [place] # Seg Neutrophils % Seg Neuts % (Manual) Lymphocytes % (Manual) Seg Neutrophils # Seg Neutrophils # Man Lymphocytes # (Manual) Monocytes # (Manual) D-Dimer Heparin Anti-Xa Level ABG pH POC ABG pCO2 POC ABG pO2 ABG pO2 ABG HCO3 ABG O2 Saturation ABG Base Excess ABG Hemoglobin ABG Oxyhemoglobin VBG pH Oxyhemoglobin Sodium Potassium Chloride Carbon Dioxide BUN Creatinine Glucose POC Glucose 109 H 158 H 162 H Lactic Acid Calcium Ferritin AST Alkaline Phosphatase Lactate Dehydrogenase Total Creatine Kinase CK-MB (CK-2) C-Reactive Protein Total Protein Albumin Troponin T HDL Cholesterol Urine WBC (Auto) Urine Creatinine Urine Total Protein Coronavirus (PCR) Crossmatch 06/27/20 06/27/20 06/28/20 18:43 23:46 04:05 WBC RBC Hgb 7.7 L Hct 22.1 L MCHC RDW Lymph % (Auto) [place] % (Auto) Eos % (Auto) Lymph # [place] # Seg Neutrophils % Seg Neuts % (Manual) Lymphocytes % (Manual) Seg Neutrophils # Seg Neutrophils # Man Lymphocytes # (Manual) Monocytes # (Manual) D-Dimer Heparin Anti-Xa Level ABG pH POC ABG pCO2 POC ABG pO2 ABG pO2 102.7 H ABG HCO3 28.7 H ABG O2 Saturation ABG Base Excess 3.7 H ABG Hemoglobin ABG Oxyhemoglobin VBG pH Oxyhemoglobin Sodium Potassium Chloride Carbon Dioxide BUN Creatinine Glucose POC Glucose 142 H Lactic Acid Calcium Ferritin AST Alkaline Phosphatase Lactate Dehydrogenase Total Creatine Kinase CK-MB (CK-2) C-Reactive Protein Total Protein Albumin Troponin T HDL Cholesterol Urine WBC (Auto) Urine Creatinine Urine Total Protein Coronavirus (PCR) Crossmatch 06/28/20 06/28/20 06/28/20 09:47 09:47 12:02 WBC RBC 2.53 L Hgb 7.4 L Hct 22.2 L MCHC RDW 16.8 H Lymph % (Auto) [place] % (Auto) 13.5 H Eos % (Auto) Lymph # 1.1 L [place] # 1.0 H Seg Neutrophils % Seg Neuts % (Manual) Lymphocytes % (Manual) Seg Neutrophils # Seg Neutrophils # Man Lymphocytes # (Manual) Monocytes # (Manual) D-Dimer Heparin Anti-Xa Level ABG pH POC ABG pCO2 POC ABG pO2 ABG pO2 ABG HCO3 ABG O2 Saturation ABG Base Excess ABG Hemoglobin ABG Oxyhemoglobin VBG pH Oxyhemoglobin Sodium Potassium Chloride Carbon Dioxide BUN 80 H Creatinine 1.5 H Glucose 139 H POC Glucose 169 H Lactic Acid Calcium 7.9 L Ferritin AST Alkaline Phosphatase Lactate Dehydrogenase Total Creatine Kinase CK-MB (CK-2) C-Reactive Protein Total Protein 5.0 L Albumin 2.1 L Troponin T HDL Cholesterol Urine WBC (Auto) Urine Creatinine Urine Total Protein Coronavirus (PCR) Crossmatch 06/28/20 06/28/20 06/28/20 12:30 12:30 17:24 WBC RBC 2.38 L Hgb 7.3 L Hct 20.9 L MCHC 35 H RDW 16.7 H Lymph % (Auto) [place] % (Auto) Eos % (Auto) Lymph # [place] # Seg Neutrophils % Seg Neuts % (Manual) Lymphocytes % (Manual) Seg Neutrophils # Seg Neutrophils # Man Lymphocytes # (Manual) Monocytes # (Manual) D-Dimer Heparin Anti-Xa Level ABG pH POC ABG pCO2 POC ABG pO2 ABG pO2 ABG HCO3 ABG O2 Saturation ABG Base Excess ABG Hemoglobin ABG Oxyhemoglobin VBG pH Oxyhemoglobin Sodium Potassium Chloride Carbon Dioxide BUN 74 H Creatinine 1.5 H Glucose 143 H POC Glucose 173 H Lactic Acid Calcium 7.5 L Ferritin AST Alkaline Phosphatase Lactate Dehydrogenase Total Creatine Kinase CK-MB (CK-2) C-Reactive Protein Total Protein Albumin Troponin T HDL Cholesterol Urine WBC (Auto) Urine Creatinine Urine Total Protein Coronavirus (PCR) Crossmatch 06/29/20 06/29/20 06/29/20 00:02 03:54 04:38 WBC RBC 2.55 L Hgb 7.3 L Hct 22.4 L MCHC RDW 16.4 H Lymph % (Auto) 13.3 L [place] % (Auto) 12.5 H Eos % (Auto) Lymph # 1.1 L [place] # 1.0 H Seg Neutrophils % Seg Neuts % (Manual) Lymphocytes % (Manual) Seg Neutrophils # Seg Neutrophils # Man Lymphocytes # (Manual) Monocytes # (Manual) D-Dimer Heparin Anti-Xa Level ABG pH POC ABG pCO2 POC ABG pO2 ABG pO2 ABG HCO3 26.9 H ABG O2 Saturation ABG Base Excess ABG Hemoglobin 6.9 L ABG Oxyhemoglobin VBG pH Oxyhemoglobin Sodium Potassium Chloride Carbon Dioxide BUN Creatinine Glucose POC Glucose 142 H Lactic Acid Calcium Ferritin AST Alkaline Phosphatase Lactate Dehydrogenase Total Creatine Kinase CK-MB (CK-2) C-Reactive Protein Total Protein Albumin Troponin T HDL Cholesterol Urine WBC (Auto) Urine Creatinine Urine Total Protein Coronavirus (PCR) Crossmatch 06/29/20 06/29/20 06/29/20 04:38 05:38 12:25 WBC RBC Hgb Hct MCHC RDW Lymph % (Auto) [place] % (Auto) Eos % (Auto) Lymph # [place] # Seg Neutrophils % Seg Neuts % (Manual) Lymphocytes % (Manual) Seg Neutrophils # Seg Neutrophils # Man Lymphocytes # (Manual) Monocytes # (Manual) D-Dimer Heparin Anti-Xa Level ABG pH POC ABG pCO2 POC ABG pO2 ABG pO2 ABG HCO3 ABG O2 Saturation ABG Base Excess ABG Hemoglobin ABG Oxyhemoglobin VBG pH Oxyhemoglobin Sodium Potassium Chloride 107.8 H Carbon Dioxide BUN 72 H Creatinine 1.4 H Glucose 127 H POC Glucose 122 H 138 H Lactic Acid Calcium 7.4 L Ferritin AST Alkaline Phosphatase Lactate Dehydrogenase Total Creatine Kinase CK-MB (CK-2) C-Reactive Protein Total Protein Albumin Troponin T HDL Cholesterol Urine WBC (Auto) Urine Creatinine Urine Total Protein Coronavirus (PCR) Crossmatch 06/29/20 06/29/20 06/29/20 14:45 14:45 14:45 WBC RBC Hgb Hct MCHC RDW Lymph % (Auto) [place] % (Auto) Eos % (Auto) Lymph # [place] # Seg Neutrophils % Seg Neuts % (Manual) Lymphocytes % (Manual) Seg Neutrophils # Seg Neutrophils # Man Lymphocytes # (Manual) Monocytes # (Manual) D-Dimer 2310.15 H Heparin Anti-Xa Level ABG pH POC ABG pCO2 POC ABG pO2 ABG pO2 ABG HCO3 ABG O2 Saturation ABG Base Excess ABG Hemoglobin ABG Oxyhemoglobin VBG pH Oxyhemoglobin Sodium Potassium Chloride Carbon Dioxide BUN Creatinine Glucose POC Glucose Lactic Acid Calcium Ferritin 223.6 H AST Alkaline Phosphatase Lactate Dehydrogenase 367 H Total Creatine Kinase CK-MB (CK-2) C-Reactive Protein 3.60 H Total Protein Albumin Troponin T HDL Cholesterol Urine WBC (Auto) Urine Creatinine Urine Total Protein Coronavirus (PCR) Crossmatch 06/29/20 06/29/20 06/29/20 18:27 23:35 Unknown WBC RBC Hgb Hct MCHC RDW Lymph % (Auto) [place] % (Auto) Eos % (Auto) Lymph # [place] # Seg Neutrophils % Seg Neuts % (Manual) Lymphocytes % (Manual) Seg Neutrophils # Seg Neutrophils # Man Lymphocytes # (Manual) Monocytes # (Manual) D-Dimer Heparin Anti-Xa Level ABG pH POC ABG pCO2 POC ABG pO2 ABG pO2 ABG HCO3 ABG O2 Saturation ABG Base Excess ABG Hemoglobin ABG Oxyhemoglobin VBG pH Oxyhemoglobin Sodium Potassium Chloride Carbon Dioxide BUN Creatinine Glucose POC Glucose 112 H 140 H Lactic Acid Calcium Ferritin AST Alkaline Phosphatase Lactate Dehydrogenase Total Creatine Kinase CK-MB (CK-2) C-Reactive Protein Total Protein Albumin Troponin T HDL Cholesterol Urine WBC (Auto) Urine Creatinine Urine Total Protein Coronavirus (PCR) Positive A Crossmatch 06/30/20 06/30/20 06/30/20 04:10 04:10 06:09 WBC RBC 2.44 L Hgb 7.1 L Hct 21.5 L MCHC RDW 16.6 H Lymph % (Auto) 11.0 L Atlantic % (Auto) 10.8 H Eos % (Auto) Lymph # 0.9 L [place] # 0.9 H Seg Neutrophils % 73.7 H Seg Neuts % (Manual) Lymphocytes % (Manual) Seg Neutrophils # Seg Neutrophils # Man Lymphocytes # (Manual) Monocytes # (Manual) D-Dimer Heparin Anti-Xa Level ABG pH POC ABG pCO2 POC ABG pO2 ABG pO2 ABG HCO3 ABG O2 Saturation ABG Base Excess ABG Hemoglobin ABG Oxyhemoglobin VBG pH Oxyhemoglobin Sodium Potassium Chloride 109.1 H Carbon Dioxide BUN 74 H Creatinine 1.3 H Glucose 191 H POC Glucose 187 H Lactic Acid Calcium 7.8 L Ferritin AST Alkaline Phosphatase Lactate Dehydrogenase Total Creatine Kinase CK-MB (CK-2) C-Reactive Protein Total Protein Albumin Troponin T HDL Cholesterol Urine WBC (Auto) Urine Creatinine Urine Total Protein Coronavirus (PCR) Crossmatch 06/30/20 06/30/20 06/30/20 12:04 17:43 23:41 WBC RBC Hgb Hct MCHC RDW Lymph % (Auto) Atlantic % (Auto) Eos % (Auto) Lymph # [place] # Seg Neutrophils % Seg Neuts % (Manual) Lymphocytes % (Manual) Seg Neutrophils # Seg Neutrophils # Man Lymphocytes # (Manual) Monocytes # (Manual) D-Dimer Heparin Anti-Xa Level ABG pH POC ABG pCO2 POC ABG pO2 ABG pO2 ABG HCO3 ABG O2 Saturation ABG Base Excess ABG Hemoglobin ABG Oxyhemoglobin VBG pH Oxyhemoglobin Sodium Potassium Chloride Carbon Dioxide BUN Creatinine Glucose POC Glucose 112 H 177 H 143 H Lactic Acid Calcium Ferritin AST Alkaline Phosphatase Lactate Dehydrogenase Total Creatine Kinase CK-MB (CK-2) C-Reactive Protein Total Protein Albumin Troponin T HDL Cholesterol Urine WBC (Auto) Urine Creatinine Urine Total Protein Coronavirus (PCR) Crossmatch 07/01/20 07/01/20 07/01/20 05:02 05:52 06:01 WBC 12.6 H RBC 2.95 L Hgb 8.2 L Hct 26.0 L MCHC RDW 16.9 H Lymph % (Auto) Atlantic % (Auto) Eos % (Auto) Lymph # [place] # Seg Neutrophils % Seg Neuts % (Manual) Lymphocytes % (Manual) Seg Neutrophils # Seg Neutrophils # Man Lymphocytes # (Manual) Monocytes # (Manual) D-Dimer Heparin Anti-Xa Level ABG pH POC ABG pCO2 POC ABG pO2 ABG pO2 ABG HCO3 ABG O2 Saturation ABG Base Excess ABG Hemoglobin 8.2 L ABG Oxyhemoglobin VBG pH Oxyhemoglobin Sodium Potassium Chloride Carbon Dioxide BUN Creatinine Glucose POC Glucose 129 H Lactic Acid Calcium Ferritin AST Alkaline Phosphatase Lactate Dehydrogenase Total Creatine Kinase CK-MB (CK-2) C-Reactive Protein Total Protein Albumin Troponin T HDL Cholesterol Urine WBC (Auto) Urine Creatinine Urine Total Protein Coronavirus (PCR) Crossmatch 07/01/20 07/01/20 07/01/20 06:01 06:01 06:08 WBC RBC Hgb Hct MCHC RDW Lymph % (Auto) [place] % (Auto) Eos % (Auto) Lymph # [place] # Seg Neutrophils % Seg Neuts % (Manual) Lymphocytes % (Manual) Seg Neutrophils # Seg Neutrophils # Man Lymphocytes # (Manual) Monocytes # (Manual) D-Dimer Heparin Anti-Xa Level ABG pH POC ABG pCO2 POC ABG pO2 ABG pO2 ABG HCO3 ABG O2 Saturation ABG Base Excess ABG Hemoglobin ABG Oxyhemoglobin VBG pH Oxyhemoglobin Sodium 147 H Potassium Chloride 108.0 H Carbon Dioxide BUN 71 H Creatinine 1.3 H Glucose 193 H POC Glucose 192 H Lactic Acid Calcium 8.1 L Ferritin AST Alkaline Phosphatase Lactate Dehydrogenase Total Creatine Kinase 300 H CK-MB (CK-2) C-Reactive Protein Total Protein Albumin Troponin T 0.067 H HDL Cholesterol 61 H Urine WBC (Auto) Urine Creatinine Urine Total Protein Coronavirus (PCR) Crossmatch Chest x-ray: image reviewed Allied health notes reviewed: RT
[2020-07-01 08:58] LABS: Total Cells Counted 100
[2020-07-01 08:59] LABS: Anisocytosis Few; Platelet Estimate Consistent w Auto
[2020-07-01] MEDS: VANCOMYCIN 2,000 MG in SODIUM CHLORIDE 0.9% 500 ML 500 ML IV SCH (09:00)
[2020-07-01] MEDS: levETIRAcetam 500 MG/5 ML ORAL LIQD PO SCH ×2 (09:00→21:02)
[2020-07-01] MEDS: cloNIDine 0.2 MG TAB PO SCH ×2 (09:01→21:04)
[2020-07-01] MEDS: amLODIPine 10 MG TAB PO SCH (09:01)
[2020-07-01] MEDS: carvediloL 12.5 MG TAB PO SCH ×2 (09:01→21:03)
[2020-07-01] MEDS: LANSOPRAZOLE 30 MG SOLUTAB FEEDTUBE SCH ×2 (09:01→21:03)
[2020-07-01] MEDS: SENNOSIDES ORAL LIQD 8.8 MG/5 ML ORAL LIQD FEEDTUBE SCH ×2 (09:02→21:04)
--- NOTE | 2020-07-01 11:25 | Progress Note ---
Assessment and Plan Cultures: Coronavirus PCR: Positive 05/28/2020 blood culture: no growth 05/28/2020 tracheal aspirate: Usual respiratory bobo 05/28/2020 urine culture: No growth 06/03/2020 urine culture: No growth 06/09/2020 tracheal aspirate Klebsiella pneumoniae 06/28/2020 sputum culture positive for Klebsiella 06/28/2020 blood cultures no growth today A/P: 64-year-old female with hypertension, diastolic CHF, pulmonary hypertension, diabetes, obesity hypoventilation syndrome was admitted to the emergency room after she called EMS due to difficulty breathing. On the way to the hospital, patient developed cardiac arrest and was treated as per ACLS protocol: #New cardiac arrest on 07/01/2020 #New sepsis: Fever improving. After asystolic cardiac arrest on 06/26/2028. Fever trending down.. ? Healthcare associated pneumonia #Bilateral pneumonia: Secondary to COVID-19. Completed 5 days of IV Remdesivir 06/02/2020. ? Healthcare associated pneumonia, repeat sputum Klebsiella. Chest x-ray worsening infiltrates. #Acute hypoxic respiratory failure: On mechanical ventilation. Minimal vent settings. #Status post PEA arrest, encephalopathy #HF: EF 45-50% #Mild LFT elevation: likely from COVID-19. #AVANI: Improving. #Severe constipation: Status post manual disimpaction Recs: -Continue cefepime 2 g IV every 8 hours for now -Stop vancomycin Very poor prognosis Angela Savage MD [facility] C: [phone] O: [phone] F: [phone] Subjective Date of service: 07/01/20 Principal diagnosis: Critical COVID Interval history: Remains intubated on the ventilator, FiO2 30%. Per nursing staff, a cold blue was called due to rapid desaturation and bradycardia. Initially found in PEA and then asystole. Patient received epinephrine and atropine, improved. Objective - Exam Narrative Exam: Physical Exam (reviewed in chart due to PPE conservation and minimize risk of transmission) Constitutional: limited due to PPE conservation strategy Head, Ears, Nose: limited due to PPE conservation strategy Eyes: limited due to PPE conservation strategy Neck: intubated limited due to PPE conservation strategy Oral: limited due to PPE conservation strategy Cardiovascular: limited due to PPE conservation strategy Respiratory: limited due to PPE conservation strategy GI: limited due to PPE conservation strategy Musculoskeletal: limited due to PPE conservation strategy Skin: limited due to PPE conservation strategy Hem/Lymphatic: limited due to PPE conservation strategy Psych: limited due to PPE conservation strategy Neurological: limited due to PPE conservation strategy - Constitutional Vitals: Vital Signs Temp Pulse Resp BP Pulse Ox 99.0 F 73 19 132/55 97 07/01/20 03:32 07/01/20 11:00 07/01/20 11:00 07/01/20 11:00 07/01/20 11:00 Temperature -Last 24 Hours Temperature 99.0 F Temperature 98.4 F Temperature 98.3 F - Labs CBC & Chem 7: 07/01/20 06:01 07/01/20 06:01 Labs: Abnormal lab results 06/29/20 06/30/20 06/30/20 Range/Units Unknown 12:04 17:43 WBC (4.5-11.0) K/mm3 RBC (3.65-5.03) M/mm3 Hgb (10.1-14.3) gm/dl Hct (30.3-42.9) % RDW (13.2-15.2) % Eosinophils % (Manual) (0.0-4.3) % Seg Neutrophils # Man (1.8-7.7) K/mm3 Eosinophils # (Manual) (0.0-0.4) K/mm3 ABG Hemoglobin (12.0-17.5) Sodium (137-145) mmol/L Chloride (98-107) mmol/L BUN (7-17) mg/dL Creatinine (0.6-1.2) mg/dL Glucose (65-100) mg/dL POC Glucose 112 H 177 H (70-105) Calcium (8.4-10.2) mg/dL Total Creatine Kinase (30-135) units/L Troponin T (0.00-0.029) ng/mL HDL Cholesterol (40-59) mg/dL Coronavirus (PCR) Positive A (Negative) 06/30/20 07/01/20 07/01/20 Range/Units 23:41 05:02 05:52 WBC (4.5-11.0) K/mm3 RBC (3.65-5.03) M/mm3 Hgb (10.1-14.3) gm/dl Hct (30.3-42.9) % RDW (13.2-15.2) % Eosinophils % (Manual) (0.0-4.3) % Seg Neutrophils # Man (1.8-7.7) K/mm3 Eosinophils # (Manual) (0.0-0.4) K/mm3 ABG Hemoglobin 8.2 L (12.0-17.5) Sodium (137-145) mmol/L Chloride (98-107) mmol/L BUN (7-17) mg/dL Creatinine (0.6-1.2) mg/dL Glucose (65-100) mg/dL POC Glucose 143 H 129 H (70-105) Calcium (8.4-10.2) mg/dL Total Creatine Kinase (30-135) units/L Troponin T (0.00-0.029) ng/mL HDL Cholesterol (40-59) mg/dL Coronavirus (PCR) (Negative) 07/01/20 07/01/20 07/01/20 Range/Units 06:01 06:01 06:01 WBC 12.6 H (4.5-11.0) K/mm3 RBC 2.95 L (3.65-5.03) M/mm3 Hgb 8.2 L (10.1-14.3) gm/dl Hct 26.0 L (30.3-42.9) % RDW 16.9 H (13.2-15.2) % Eosinophils % (Manual) 5.0 H (0.0-4.3) % Seg Neutrophils # Man 8.6 H (1.8-7.7) K/mm3 Eosinophils # (Manual) 0.6 H (0.0-0.4) K/mm3 ABG Hemoglobin (12.0-17.5) Sodium 147 H (137-145) mmol/L Chloride 108.0 H (98-107) mmol/L BUN 71 H (7-17) mg/dL Creatinine 1.3 H (0.6-1.2) mg/dL Glucose 193 H (65-100) mg/dL POC Glucose (70-105) Calcium 8.1 L (8.4-10.2) mg/dL Total Creatine Kinase 300 H (30-135) units/L Troponin T 0.067 H (0.00-0.029) ng/mL HDL Cholesterol 61 H (40-59) mg/dL Coronavirus (PCR) (Negative) 07/01/20 Range/Units 06:08 WBC (4.5-11.0) K/mm3 RBC (3.65-5.03) M/mm3 Hgb (10.1-14.3) gm/dl Hct (30.3-42.9) % RDW (13.2-15.2) % Eosinophils % (Manual) (0.0-4.3) % Seg Neutrophils # Man (1.8-7.7) K/mm3 Eosinophils # (Manual) (0.0-0.4) K/mm3 ABG Hemoglobin (12.0-17.5) Sodium (137-145) mmol/L Chloride (98-107) mmol/L BUN (7-17) mg/dL Creatinine (0.6-1.2) mg/dL Glucose (65-100) mg/dL POC Glucose 192 H (70-105) Calcium (8.4-10.2) mg/dL Total Creatine Kinase (30-135) units/L Troponin T (0.00-0.029) ng/mL HDL Cholesterol (40-59) mg/dL Coronavirus (PCR) (Negative)
--- NOTE | 2020-07-01 11:45 | Progress Note ---
Assessment and Plan - Patient Problems (1) Acute kidney injury (AVANI) with acute tubular necrosis (ATN) Current Visit: Yes Status: Acute Plan to address problem: Renal function stabilizing, Cr down to 1.3, pt with good urine output. Follow-up electrolytes and renal function, cont supportive care for AVANI/ATN, maintain MAP > 65mmHg, avoid nephrotoxins, IV contrast (2) Pneumonia due to COVID-19 virus Current Visit: Yes Status: Acute Plan to address problem: Patient has completed 5 days of Remdesevir. Completed course of steroids. (3) Acute hypoxemic respiratory failure Current Visit: Yes Status: Acute Plan to address problem: Being managed by pulmonary. S/p Extubation 06/12, now reintubated on 06/26 s/p code blue. (4) Hyperkalemia Current Visit: Yes Status: Acute Plan to address problem: K normalized (5) Cardiac arrest Current Visit: Yes Status: Acute Plan to address problem: s/p ACLS with eventual ROSC (6) Cardiomyopathy Current Visit: No Status: Acute Qualifiers: Cardiomyopathy type: unspecified Qualified Code(s): I42.9 - Cardiomyopathy, unspecified (7) Type 2 diabetes mellitus with diabetic chronic kidney disease Current Visit: Yes Status: Acute Plan to address problem: DM management as per primary attending (8) Hypernatremia Current Visit: Yes Status: Acute Plan to address problem: increased free water flushes to 250ml q4hr Subjective Date of service: 07/01/20 Principal diagnosis: Critical COVID Interval history: Pt remains on vent support. non-oliguric Objective - Exam Narrative Exam: Exam reviewed in chart d/t PPE preservation - Vital Signs Vital signs: Vital Signs - 12hr 07/01/20 07/01/20 07/01/20 00:00 00:15 01:00 Temperature 98.4 F Pulse Rate 77 81 76 Pulse Rate [ 78 From Monitor] Respiratory 22 18 Rate Blood Pressure 146/60 146/60 144/61 O2 Sat by Pulse 97 99 97 Oximetry 07/01/20 07/01/20 07/01/20 02:00 03:00 03:32 Temperature 99.0 F Pulse Rate 76 74 Pulse Rate [ From Monitor] Respiratory 16 15 Rate Blood Pressure 141/60 142/57 O2 Sat by Pulse 97 97 Oximetry 07/01/20 07/01/20 07/01/20 04:00 04:45 05:00 Temperature Pulse Rate 76 76 81 Pulse Rate [ 90 From Monitor] Respiratory 14 21 Rate Blood Pressure 149/66 158/63 148/57 O2 Sat by Pulse 99 98 97 Oximetry 07/01/20 07/01/20 07/01/20 06:01 06:02 07:00 Temperature Pulse Rate 93 H 90 86 Pulse Rate [ From Monitor] Respiratory 18 22 Rate Blood Pressure 148/69 148/69 130/52 O2 Sat by Pulse 92 96 Oximetry 07/01/20 07/01/20 07/01/20 08:00 08:16 09:00 Temperature Pulse Rate 83 79 78 Pulse Rate [ From Monitor] Respiratory 23 21 Rate Blood Pressure 140/55 140/55 141/59 O2 Sat by Pulse 95 98 97 Oximetry 07/01/20 07/01/20 07/01/20 09:01 10:00 11:00 Temperature Pulse Rate 77 76 73 Pulse Rate [ From Monitor] Respiratory 18 19 Rate Blood Pressure 141/59 140/56 132/55 O2 Sat by Pulse 97 97 Oximetry - Lab 07/01/20 06:01 07/01/20 06:01 Most recent lab results ABG pCO2 40.7 mm Hg 06/29/20 03:54 ABG pO2 89.2 mm Hg (80.0-90.0) 06/29/20 03:54 ABG HCO3 26.9 mmol/L (20.0-26.0) H 06/29/20 03:54 ABG O2 Saturation 97.2 % (95.0-99.0) 06/29/20 03:54 ABG pH 7.408 (7.320-7.450) 07/01/20 05:02 Calcium 8.1 mg/dL (8.4-10.2) L 07/01/20 06:01 Urine Creatinine 82.2 mg/dL (0.1-20.0) H 06/06/20 04:00 Urine Sodium 20 mmol/L 06/06/20 04:00 Urine Total Protein 196 mg/dL (5-11.8) H 06/06/20 04:00 Medications & Allergies - Medications Allergies/Adverse Reactions: Allergies No Known Allergies Allergy (Verified 01/21/20 12:28) Home Medications: Home Medications Medication Instructions Recorded Confirmed Last Taken Type AtorvaSTATin [Lipitor] 20 mg PO QHS 05/12/20 05/29/20 Unknown History lisinopriL [Zestril TAB] 40 mg PO QDAY 05/12/20 05/29/20 Unknown History metFORMIN [Glucophage] 850 mg PO BID 05/12/20 05/29/20 Unknown History Acetaminophen [Acetaminophen TAB] 650 mg PO Q4H PRN tablet 05/13/20 05/29/20 Unknown Rx Dicyclomine [Bentyl] 20 mg PO BID #20 tablet 05/13/20 05/29/20 Unknown Rx Famotidine [Pepcid] 20 mg PO BID #30 tablet 05/13/20 05/29/20 Unknown Rx carvediloL [Coreg] 6.25 mg PO BID #60 05/13/20 05/29/20 Unknown Rx Active Medications: Generic Name Dose Route Start Last Admin Trade Name Freq PRN Reason Stop Dose Admin Acetaminophen 650 mg 06/09/20 10:57 06/29/20 21:18 Tylenol FEEDTUBE 650 mg Q6H PRN Administration Fever >101 Amlodipine Besylate 10 mg 06/02/20 11:00 07/01/20 09:01 Amlodipine PO 10 mg DAILY NELSON Administration Lipase/Protease/Amylase 1 each 05/29/20 13:39 06/24/20 22:51 Pancreazhoracio Lawson 10,500 Unit FEEDTUBE 1 each PRN PRN Administration For Clogged Feeding Tube Carvedilol 12.5 mg 06/03/20 10:00 07/01/20 09:01 Coreg PO 12.5 mg BID NELSON Administration Clonidine HCl 0.2 mg 06/23/20 22:00 07/01/20 09:01 Catapres PO 0.2 mg Q12HR NELSON Administration Glycopyrrolate 2 mg 06/09/20 14:00 07/01/20 08:39 Glycopyrrolate PO 2 mg TID NELSON Administration Heparin Sodium (Porcine) 5,000 unit 06/30/20 14:00 07/01/20 06:03 Heparin SUB-Q 5,000 unit Q8HR NELSON Administration Hydralazine HCl 50 mg 06/03/20 09:00 07/01/20 06:02 Apresoline PO 50 mg Q8HR NELSON Administration Hydrophilic Ointment 1 applic 05/28/20 13:49 Vaseline Lip Therapy TP Q2HR PRN Dry Lips Vasopressin 20 unit/ Sodium 101 mls @ 9.09 mls/hr 06/26/20 19:00 06/26/20 19:30 Chloride IV 0 units/min TITR NELSON 0 mls/hr Titration Protocol 0.03 UNITS/MIN Norepinephrine 4 mg in 250 mls @ 7.5 mls/hr 06/26/20 19:00 06/26/20 20:06 Levophed Drip 4 Mg/Ns 250 Ml IV 0 mcg/min TITR NELSON 0 mls/hr Titration Protocol 2 MCG/MIN Phenylephrine HCl 100 mg/ 100 mls @ 3 mls/hr 06/26/20 18:15 Sodium Chloride IV TITR NELSON Protocol 50 MCG/MIN Cefepime HCl 2 gm in 100 mls @ 200 mls/hr 06/28/20 13:00 07/01/20 06:01 Cefepime/Ns 2 Gm/100 Ml IV 200 mls/hr Q8HR NELSON Administration Protocol Vancomycin HCl 2,000 mg/ 540 mls @ 250 mls/hr 06/28/20 13:00 07/01/20 09:00 Sodium Chloride IV 250 mls/hr Q24HR NELSON Administration Sodium Chloride 500 mls @ 5 mls/hr 06/30/20 22:00 06/30/20 21:42 Nacl 0.9% 500 Ml IV 5 mls/hr DIRECT NELSON Administration Insulin Glargine 10 units 06/08/20 22:00 06/30/20 21:34 Lantus SUB-Q 10 units QHS NELSON Administration Insulin Human Lispro 0 unit 05/29/20 18:00 07/01/20 06:07 Humalog SUB-Q 3 unit Q6H NELSON Administration Protocol Labetalol HCl 20 mg 06/03/20 09:00 06/26/20 21:27 Labetalol IV 20 mg Q4H PRN Administration HYPERTENSION Lansoprazole 30 mg 06/05/20 22:00 07/01/20 09:01 Prevacid Solutab FEEDTUBE 30 mg BID NELSON Administration Levetiracetam 500 mg 06/16/20 11:00 07/01/20 09:00 Keppra PO 500 mg BID NELSON Administration Lidocaine HCl 15 ml 06/26/20 20:00 07/01/20 08:39 Magic Mouthwash PO 15 ml TID NELSON Administration Metoclopramide HCl 10 mg 06/10/20 20:00 07/01/20 08:40 Reglan IV Not Given Q6H NELSON Multi-Ingred Cream/Lotion/Oil/Oint 1 applic 05/28/20 13:49 Artificial Tears Ophth Oint OU Q4HR PRN Dry Eye(s) Ondansetron HCl 4 mg 06/02/20 09:00 06/09/20 16:48 Zofran IV 4 mg Q8H PRN Administration Nausea And Vomiting Scopolamine 1 each 06/05/20 14:00 06/29/20 09:44 Transderm-Scop TD 1 each Q3D NELOSN Administration Senna 17.6 mg 06/03/20 10:00 07/01/20 09:02 Senokot FEEDTUBE Not Given BID NELSON Simple Syrup 15 ml 05/29/20 13:39 Simple Syrup FEEDTUBE PRN PRN Hypoglycemia Simple Syrup 30 ml 05/29/20 13:39 Simple Syrup FEEDTUBE PRN PRN Hypoglycemia Sodium Bicarbonate 325 mg 05/29/20 13:39 Sodium Bicarbonate FEEDTUBE PRN PRN For Clogged Feeding Tube Sodium Chloride 10 ml 05/28/20 22:00 07/01/20 09:02 Sodium Chloride Flush Syringe 10 Ml IV 10 ml BID NELSON Administration Sodium Chloride 10 ml 05/28/20 19:08 06/16/20 17:50 Sodium Chloride Flush Syringe 10 Ml IV 10 ml PRN PRN Administration LINE FLUSH
--- NOTE | 2020-07-01 16:17 | Progress Note ---
Assessment and Plan --Febrile illness with sepsis persistently positive for COVID-19 and Klebsiella pneumoniae Continue empiric antibiotics - Continue cefepime 2 g IV every 8 hours for now, ID following, completed treatment for COVID-19 -- Acute hypoxemic respiratory failure From COVID-19 viral infection and Klebsiella pneumoniae, intubated on admission extubated on 06/12/20 then placed on high flow o2 patient developed another respiratory arrest on 06/26 - reintubated CC following -- s/p Cardiac arrest on admission and on 06/26 Cardiology team on board Conservative management as per cardiology --COVID-19 positive since 05/28/2020 Completed treatment, ID following Repeat test 06/29 still positive --Superficial left cephalic vein DVT/elevated D-dimers[COVID 19] Patient is on heparin drip from 05/29/20 D-dimers improved [id number] s/p heparin drip, Discussed with ID, treated with Eliquis 5 mg twice a day for 1 week[per ID] stop date 06/26/2020 -- Acute metabolic encephalopathy, POA likely from sepsis and s/p cardiac arrest with possible anoxic injury -- Acute renal failure: likely ATN Cr slowly improving Avoid ACEI and other nephrotoxic medications Nephrology following -- Coronavirus infection with b/l PNA Completed remdesivir on 06/02 Completed dexamethasone - Last dose 06/07 ID recs appreciated. --Klebsiella pneumonia: Initially completed antibiotics with cefepime Repeat sputum culture still positive for Klebsiella, restarted antibiotic --CHF (congestive heart failure) Cardiology following. Ef 45% -- Coffee ground emesis -Stress ulcers Possible stress ulcers, On PPI H/H again dropped - transfuse GI evaluation -- Hypertension; moderate control Continue amlodipine, coreg, clonidine and hydralazine --Mild LFT elevation: likely from COVID-19. cont to monitor -- DVT prophylaxis Eliquis, SCD to bilateral lower extremities while in bed -- Advance care planning Patient is critically ill with multiple medical problems Poor prognosis, family updated and requesting full code The high probability of a clinically significant, sudden or life threatening deterioration of the [CVS, renal, respiratory, [employer]OR] system(s) required my full and direct attention, intervention and personal management. The aggregate critical care time was [34] minutes. This time is in addition to time spent performing reported procedures but includes the following: [x] Data Review and interpretation [x] Patient assessment and monitoring of vital signs [x] Documentation [x] Medication orders and management Brief history: 64 YO Female with a medical history of HTN, Diastolic CHF, Pulmonary HTN, DM, Obesity Hypoventilation Syndrome presents to ED for evaluation of shortness of breath. As per staff, the EMS was notified for difficulty breathing. Upon arrival to the patient's home the patient was found to be in distress and was subsequently transported to [facility] for further evaluation and care. In route to [facility] the patient developed cardiac arrest and was treated in accordance with ACLS protocol with return of ROSC. Patient was seen and evaluated in the emergency department and was intubated and placed on ventilatory support. Patient admitted to ICU. Critical care team consulted in ED. She was found to have COVID-19 infection and was started on steroids and remdesivir. ID was consulted. Cardiology was consulted for her systolic heart failure and cardiac arrest. Patient completed treatment for COVID-19, then develop superimposed bacterial pneumonia with Klebsiella. She is now extubated, but remains confused and requiring high flow O2 and intermittent BiPAP. 06/01. Patient remains intubated and on ventilatory support today. Patient has multiple organ system failure and has poor prognosis. Patient did not experience significant medical decompensation overnight but no improvement with current therapy. 06/02. Remains intubated. her BP is elevated. Started on nicardipine drip. Cardio logy following. 06/03-06/04. BP is better. Hb stable. Completed remdesivir. ID , Cardiology and Critical care team on board 06/05. Bump in creatinine. I/O reviewed. Nephrology consulted. 06/06. Has slight improvement in renal function. Nephrology on board. On SBT today. Vitals stable. 06/07. Stable renal function. No need for HD as per nephrology. She is making urine. Plan for SBT. 06/08. Off sedation and very lethargic. Her BUN is going up - effect of steroids vs GI bleed. Her hemoglobin remains stable. Will check stool guaiac. Nephrology is following. WBC bumped to 16 today. 06/09: remains intubated, wbc trended up, Cr slightly trending down. cont TF, wean off vent as tolerated. 06/10: Cr trending down, cont to wean off vent as tolerated. 06/10; Cr much improved, cont iv fluid, tolerating tube feeding. stopped vac, iv cefepime for total 10 days. 06/11; creatinine 1.5 today, sodium level has normalized. Continue tube feeding, continue cefepime for 10 days. Continue to wean off as tolerated. 06/12: planned for extubation today 06/13: extubated yesterday, now on Bipap 06/14: patient on Bipap, remains on TF, restraint. cont to follow clinically 06/15: patient on high flow O2,remains on TF, restraint. cont to follow clinically. transfer to [facility] 06/16: Patient remains on high flow O2, intermittently on BiPAP. Tolerating tube feeding. cont to monitor at [facility] 06/17; patient on BiPAP. Remains confused and on tube feeding. Continue to monitor at [facility]. Wean off O2 as tolerated. 06/18; patient feels slightly better on high flow oxygen, minimally communicative, stable to be transferred out of [facility] to telemetry 06/20; remains hypoxic on high flow oxygen, today noncommunicative sleeping all the time, vital signs noted 06/21; more alert and awake confused at times and pulling, restraint for safety, on high flow oxygen We will request physical therapy once more stable 06/22; PT unable to assess due to safety concerns, remains hypoxic on high flow oxygen, BiPAP at night. minimally communicative 06/23: Remains on high flow O2, order for speech eval, continue tube feeding. Cr eatinine noted to be elevated today -2.4, increase IV fluid hydration. 06/24: Kidney function started worsening 06/23 -likely from hypotension. patient had episodes of hypotension on 06/22. Kidney function is unchanged from yesterday. No further episodes of hypotension. Follow-up electrolytes and renal function. patient remains on high flow O2 06/25: patient on 15L o2 with n/c. on Bipap at night. follow renal function and follow bmp . Placement not possible as patient unfunded. wean off o2 as tolerated. 06/26: hb 6.9 today, transfuse one unit. wean off from O2 as tolerated. check stool for occult blood. consult GI if stool is positive for blood. 06/27; Code blue called yesterday. ACLS initiated, Pt found to have Asystolic Arrest with eventual return of perfusing cardiac rhythm. patient reintubated during code, transferred to ICU, called family and updated 06/28: Patient is spiking fever, started on empiric antibiotic, ordered blood urine and sputum culture. We will reconsult ID. Discussed with patient's son in the evening. Family wants to continue full CODE STATUS. Discussed with critical care attending and RN in length. 06/29: Repeat COVID-19 test is positive. Patient remains on ventilator, continue tube feeding diet. Renal function stable, H&H stable. GI recommendation appreciated -no plan for endoscopy now as there is no active bleeding. 06/30: Renal function improving, patient remains positive for COVID. Tolerating tube feeding, wean off vent as tolerated. Patient remains with poor prognosis but 07/01: Remains intubated, continue to wean off as tolerated, continue antibiotic for Klebsiella pneumoniae. COVID-19 reordered on 06/29 and came as positive. ID following, pulmonary critical care following. Poor prognosis, family wants to continue full code. Subjective Date of service: 07/01/20 Principal diagnosis: Coffee Ground Emesis Interval history: Patient seen and examined Vitals reviewed, intubated Tolerating tube feeding Discussed with RN at the bedside Objective - Exam Narrative Exam: General appearance: Present: mild distress, well-nourished, obese (Morbidly obese), other (intubated) - EENT Eyes: No congestion or icterus - Neck Neck: Present: supple, normal ROM - Respiratory Respiratory effort: normal Respiratory: bilateral: diminished, rhonchi, negative: rales, wheezing - Cardiovascular Rhythm: regular Heart Sounds: Present: S1 & S2 - Extremities Extremities: no ischemia, No edema - Abdominal General gastrointestinal: soft, non-tender, non-distended, normal bowel sounds - Integumentary Integumentary: Present: clear, warm - Psychiatric Psychiatric: other (intubated) - Neurologic Neurologic: other (intubated) - Constitutional Vitals: Vital Signs - 12hr 07/01/20 07/01/20 07/01/20 04:45 05:00 06:01 Pulse Rate 76 81 93 H Pulse Rate [ From Monitor] Respiratory 21 18 Rate Respiratory Rate [Left Upper Hand] Blood Pressure 158/63 148/57 148/69 O2 Sat by Pulse 98 97 92 Oximetry 07/01/20 07/01/20 07/01/20 06:02 07:00 08:00 Pulse Rate 90 86 85 Pulse Rate [ 86 From Monitor] Respiratory 22 22 Rate Respiratory Rate [Left Upper Hand] Blood Pressure 148/69 130/52 140/55 O2 Sat by Pulse 96 96 Oximetry 07/01/20 07/01/20 07/01/20 08:16 09:00 09:01 Pulse Rate 79 78 77 Pulse Rate [ From Monitor] Respiratory 21 Rate Respiratory Rate [Left Upper Hand] Blood Pressure 140/55 141/59 141/59 O2 Sat by Pulse 98 97 Oximetry 07/01/20 07/01/20 07/01/20 10:00 11:00 11:59 Pulse Rate 76 73 Pulse Rate [ 73 From Monitor] Respiratory 18 19 18 Rate Respiratory 16 Rate [Left Upper Hand] Blood Pressure 140/56 132/55 O2 Sat by Pulse 97 97 99 Oximetry 07/01/20 07/01/20 07/01/20 12:00 13:00 13:02 Pulse Rate 74 76 75 Pulse Rate [ From Monitor] Respiratory 18 16 Rate Respiratory Rate [Left Upper Hand] Blood Pressure 149/50 151/63 151/63 O2 Sat by Pulse 97 97 99 Oximetry 07/01/20 13:50 Pulse Rate 74 Pulse Rate [ From Monitor] Respiratory Rate Respiratory Rate [Left Upper Hand] Blood Pressure 147/60 O2 Sat by Pulse Oximetry - Labs CBC & Chem 7: 07/01/20 06:01 07/01/20 06:01 Labs: Abnormal lab results 06/30/20 06/30/20 07/01/20 Range/Units 17:43 23:41 05:02 WBC (4.5-11.0) K/mm3 RBC (3.65-5.03) M/mm3 Hgb (10.1-14.3) gm/dl Hct (30.3-42.9) % RDW (13.2-15.2) % Eosinophils % (Manual) (0.0-4.3) % Seg Neutrophils # Man (1.8-7.7) K/mm3 Eosinophils # (Manual) (0.0-0.4) K/mm3 ABG Hemoglobin 8.2 L (12.0-17.5) Sodium (137-145) mmol/L Chloride (98-107) mmol/L BUN (7-17) mg/dL Creatinine (0.6-1.2) mg/dL Glucose (65-100) mg/dL POC Glucose 177 H 143 H (70-105) Calcium (8.4-10.2) mg/dL Total Creatine Kinase (30-135) units/L Troponin T (0.00-0.029) ng/mL HDL Cholesterol (40-59) mg/dL 07/01/20 07/01/20 07/01/20 Range/Units 05:52 06:01 06:01 WBC 12.6 H (4.5-11.0) K/mm3 RBC 2.95 L (3.65-5.03) M/mm3 Hgb 8.2 L (10.1-14.3) gm/dl Hct 26.0 L (30.3-42.9) % RDW 16.9 H (13.2-15.2) % Eosinophils % (Manual) 5.0 H (0.0-4.3) % Seg Neutrophils # Man 8.6 H (1.8-7.7) K/mm3 Eosinophils # (Manual) 0.6 H (0.0-0.4) K/mm3 ABG Hemoglobin (12.0-17.5) Sodium 147 H (137-145) mmol/L Chloride 108.0 H (98-107) mmol/L BUN 71 H (7-17) mg/dL Creatinine 1.3 H (0.6-1.2) mg/dL Glucose 193 H (65-100) mg/dL POC Glucose 129 H (70-105) Calcium 8.1 L (8.4-10.2) mg/dL Total Creatine Kinase 300 H (30-135) units/L Troponin T (0.00-0.029) ng/mL HDL Cholesterol (40-59) mg/dL 07/01/20 07/01/20 07/01/20 Range/Units 06:01 06:08 12:23 WBC (4.5-11.0) K/mm3 RBC (3.65-5.03) M/mm3 Hgb (10.1-14.3) gm/dl Hct (30.3-42.9) % RDW (13.2-15.2) % Eosinophils % (Manual) (0.0-4.3) % Seg Neutrophils # Man (1.8-7.7) K/mm3 Eosinophils # (Manual) (0.0-0.4) K/mm3 ABG Hemoglobin (12.0-17.5) Sodium (137-145) mmol/L Chloride (98-107) mmol/L BUN (7-17) mg/dL Creatinine (0.6-1.2) mg/dL Glucose (65-100) mg/dL POC Glucose 192 H 111 H (70-105) Calcium (8.4-10.2) mg/dL Total Creatine Kinase (30-135) units/L Troponin T 0.067 H (0.00-0.029) ng/mL HDL Cholesterol 61 H (40-59) mg/dL HEART Score - HEART Score Troponin: Troponin T 0.067 ng/mL (0.00-0.029) H 07/01/20 06:01
[2020-07-01] MEDS: INSULIN GLARGINE 100 UNITS/ML SUB-Q SCH (21:03)
[2020-07-02] MEDS: INSULIN LISPRO 100 UNIT/ML VIAL 3 mL SUB-Q SCH ×4 (00:16→19:24)
[2020-07-02] MEDS: METOCLOPRAMIDE 10 MG/2 ML INJ IV SCH ×4 (02:42→22:13)
[2020-07-02 04:41] LABS: ABG Base Excess 0.2 mmol/L (-2.0-3.0); ABG HCO3 25.1 mmol/L (20.0-26.0); ABG Methemoglobin 0.4 % (0.0-1.5); ABG Oxygen Saturation 97.1 % (95.0-99.0); ABG PCO2 41.9 mm Hg; ABG PH 7.396 pH Units (7.350-7.450)
[2020-07-02] MEDS: hydrALAZINE 25 MG TAB PO SCH ×3 (05:09→22:08)
[2020-07-02] MEDS: CEFEPIME/NS 2 GM/100 ML 2 GM/100 ML BAG IV SCH ×3 (05:09→22:08)
[2020-07-02] MEDS: HEPARIN 5,000 UNIT/1 ML VIAL SUB-Q SCH ×3 (05:23→22:09)
[2020-07-02 06:11] LABS: Calcium 7.8 mg/dL (8.4-10.2)
--- NOTE | 2020-07-02 08:25 | Progress Note ---
Assessment and Plan Assessment and plan: -- s/p cardiac arrest 07/01/2020,s/p CPR per ACLS protocol, refer to code sheet Intubated on vent, full CODE STATUS s/p Cardiac arrest on admission and on 06/26 Cardiology team on board Conservative management as per cardiology --Febrile illness with sepsis persistently positive for COVID-19 and Klebsiella pneumoniae Continue empiric antibiotics - Continue cefepime 2 g IV every 8 hours for now, ID following, completed treatment for COVID-19 -- Acute hypoxemic respiratory failure From COVID-19 viral infection and Klebsiella pneumoniae, intubated on admission extubated on 06/12/20 then placed on high flow o2 patient developed another respiratory arrest on 06/26 - reintubated CC following --COVID-19 positive since 05/28/2020 Completed treatment, ID following Repeat test 06/29 still positive --Superficial left cephalic vein DVT/elevated D-dimers[COVID 19] Patient is on heparin drip from 05/29/20 D-dimers improved [phone] s/p heparin drip, Discussed with ID, treated with Eliquis 5 mg twice a day for 1 week[per ID] stop date 06/26/2020 -- Acute metabolic encephalopathy, POA likely from sepsis and s/p cardiac arrest with possible anoxic injury -- Acute renal failure: likely ATN Resolved, avoid nephrotoxins Nephrology following -- Coronavirus infection with b/l PNA Completed remdesivir on 06/02 Completed dexamethasone - Last dose 06/07 ID recs appreciated. --Klebsiella pneumonia: Initially completed antibiotics with cefepime Repeat sputum culture still positive for Klebsiella, restarted antibiotic --CHF (congestive heart failure) Cardiology following. Ef 45% -- Coffee ground emesis -Stress ulcers Possible stress ulcers, On PPI H/H again dropped - transfuse GI evaluation -- Hypertension; moderate control Continue amlodipine, coreg, clonidine and hydralazine --Mild LFT elevation: likely from COVID-19. cont to monitor -- DVT prophylaxis Eliquis, SCD to bilateral lower extremities while in bed -- Advance care planning Patient is critically ill with multiple medical problems Poor prognosis, family updated and requesting full code The high probability of a clinically significant, sudden or life threatening deterioration of the [[facility], renal, respiratory, [employer]] system(s) required my full and direct attention, intervention and personal management. The aggregate cr itical care time was [34] minutes. This time is in addition to time spent performing reported procedures but includes the following: [x] Data Review and interpretation [x] Patient assessment and monitoring of vital signs [x] Documentation [x] Medication orders and management Brief history: 64 YO Female with a medical history of HTN, Diastolic CHF, Pulmonary HTN, DM, Obesity Hypoventilation Syndrome presents to ED for evaluation of shortness of breath. As per staff, the EMS was notified for difficulty breathing. Upon arrival to the patient's home the patient was found to be in distress and was subsequently transported to [facility] for further evaluation and care. In route to [facility] the patient developed cardiac arrest and was treated in accordance with ACLS protocol with return of ROSC. Patient was seen and evaluated in the emergency department and was intubated and placed on ventilatory support. Patient admitted to ICU. Critical care team consulted in ED. She was found to have COVID-19 infection and was started on steroids and remdesivir. ID was consulted. Cardiology was consulted for her systolic heart failure and cardiac arrest. Patient completed treatment for COVID-19, then develop superimposed bacterial pneumonia with Klebsiella. She is now extubated, but remains confused and requiring high flow O2 and intermittent BiPAP. History Interval history: I have seen and examined the patient at the bedside in ICU Patient's chart and medications reviewed Patient remains intubated on ventilatory support Morbidly obese Vital signs reviewed Hospitalist Physical - Constitutional Vitals: Temp Pulse Resp BP Pulse Ox 99.0 F 77 17 148/62 99 07/02/20 04:00 07/02/20 08:00 07/02/20 08:00 07/02/20 08:00 07/02/20 08:00 General appearance: Present: mild distress, well-nourished, obese (Morbidly obese), other (On high flow oxygen) - EENT Eyes: Present: PERRL, EOM intact - Neck Neck: Present: supple, normal ROM - Respiratory Respiratory effort: normal Respiratory: bilateral: diminished, rhonchi, negative: rales, wheezing - Cardiovascular Rhythm: regular Heart Sounds: Present: S1 & S2 - Extremities Extremities: no ischemia Extremity abnormal: edema - Abdominal General gastrointestinal: soft, non-tender, non-distended, normal bowel sounds - Integumentary Integumentary: Present: clear, warm - Psychiatric Psychiatric: other (Intubated on vent) - Neurologic Neurologic: other (Intubated on vent) HEART Score - HEART Score Troponin: Troponin T 0.067 ng/mL (0.00-0.029) H 07/01/20 06:01 Results - Labs CBC & Chem 7: 07/01/20 06:01 07/02/20 04:23 Labs: Laboratory Last Values WBC 12.6 K/mm3 (4.5-11.0) H 07/01/20 06:01 RBC 2.95 M/mm3 (3.65-5.03) L 07/01/20 06:01 Hgb 8.2 gm/dl (10.1-14.3) L 07/01/20 06:01 Hct 26.0 % (30.3-42.9) L 07/01/20 06:01 MCV 88 fl (79-97) 07/01/20 06:01 MCH 28 pg (28-32) 07/01/20 06:01 MCHC 32 % (30-34) 07/01/20 06:01 RDW 16.9 % (13.2-15.2) H 07/01/20 06:01 Plt Count 421 K/mm3 (140-440) 07/01/20 06:01 Lymph % (Auto) 11.0 % (13.4-35.0) L 06/30/20 04:10 [place] % (Auto) 10.8 % (0.0-7.3) H 06/30/20 04:10 Eos % (Auto) 3.9 % (0.0-4.3) 06/30/20 04:10 Baso % (Auto) 0.6 % (0.0-1.8) 06/30/20 04:10 Lymph # 0.9 K/mm3 (1.2-5.4) L 06/30/20 04:10 [place] # 0.9 K/mm3 (0.0-0.8) H 06/30/20 04:10 Eos # 0.3 K/mm3 (0.0-0.4) 06/30/20 04:10 Baso # 0.1 K/mm3 (0.0-0.1) 06/30/20 04:10 Seg Neutrophils % 73.7 % (40.0-70.0) H 06/30/20 04:10 Add Manual Diff Complete 07/01/20 06:01 Total Counted 100 07/01/20 06:01 Seg Neutrophils # 6.2 K/mm3 (1.8-7.7) 06/30/20 04:10 Seg Neuts % (Manual) 68.0 % (40.0-70.0) 07/01/20 06:01 Band Neutrophils % 0 % 07/01/20 06:01 Lymphocytes % (Manual) 23.0 % (13.4-35.0) 07/01/20 06:01 Reactive Lymphs % (Man) 0 % 07/01/20 06:01 Monocytes % (Manual) 1.0 % (0.0-7.3) 07/01/20 06:01 Eosinophils % (Manual) 5.0 % (0.0-4.3) H 07/01/20 06:01 Basophils % (Manual) 1.0 % (0.0-1.8) 07/01/20 06:01 Metamyelocytes % 2.0 % 07/01/20 06:01 Myelocytes % 0 % 07/01/20 06:01 Promyelocytes % 0 % 07/01/20 06:01 Blast Cells % 0 % 07/01/20 06:01 Nucleated RBC % Not Reportable 07/01/20 06:01 Seg Neutrophils # Man 8.6 K/mm3 (1.8-7.7) H 07/01/20 06:01 Band Neutrophils # 0.0 K/mm3 07/01/20 06:01 Lymphocytes # (Manual) 2.9 K/mm3 (1.2-5.4) 07/01/20 06:01 Abs React Lymphs (Man) 0.0 K/mm3 07/01/20 06:01 Monocytes # (Manual) 0.1 K/mm3 (0.0-0.8) 07/01/20 06:01 Eosinophils # (Manual) 0.6 K/mm3 (0.0-0.4) H 07/01/20 06:01 Basophils # (Manual) 0.1 K/mm3 (0.0-0.1) 07/01/20 06:01 Metamyelocytes # 0.3 K/mm3 07/01/20 06:01 Myelocytes # 0.0 K/mm3 07/01/20 06:01 Promyelocytes # 0.0 K/mm3 07/01/20 06:01 Blast Cells # 0.0 K/mm3 07/01/20 06:01 WBC Morphology Not Reportable 07/01/20 06:01 Hypersegmented Neuts Not Reportable 07/01/20 06:01 Hyposegmented Neuts Not Reportable 07/01/20 06:01 Hypogranular Neuts Not Reportable 07/01/20 06:01 Smudge Cells Not Reportable 07/01/20 06:01 Toxic Granulation Not Reportable 07/01/20 06:01 Toxic Vacuolation Not Reportable 07/01/20 06:01 Dohle Bodies Not Reportable 07/01/20 06:01 Pelger-Huet Anomaly Not Reportable 07/01/20 06:01 Sanjuanita Rods Not Reportable 07/01/20 06:01 Platelet Estimate Consistent w auto 07/01/20 06:01 Clumped Platelets Not Reportable 07/01/20 06:01 Plt Clumps, EDTA Not Reportable 07/01/20 06:01 Large Platelets Not Reportable 07/01/20 06:01 Giant Platelets Not Reportable 07/01/20 06:01 Platelet Satelliting Not Reportable 07/01/20 06:01 Plt Morphology Comment Not Reportable 07/01/20 06:01 RBC Morphology Not Reportable 07/01/20 06:01 Dimorphic RBCs Not Reportable 07/01/20 06:01 Polychromasia Not Reportable 07/01/20 06:01 Hypochromasia Not Reportable 07/01/20 06:01 Poikilocytosis Not Reportable 07/01/20 06:01 Anisocytosis Few 07/01/20 06:01 Microcytosis Not Reportable 07/01/20 06:01 Macrocytosis Not Reportable 07/01/20 06:01 Spherocytes Not Reportable 07/01/20 06:01 Pappenheimer Bodies Not Reportable 07/01/20 06:01 Sickle Cells Not Reportable 07/01/20 06:01 Target Cells Not Reportable 07/01/20 06:01 Tear Drop Cells Not Reportable 07/01/20 06:01 Ovalocytes Not Reportable 07/01/20 06:01 Helmet Cells Not Reportable 07/01/20 06:01 [place] Bodies Not Reportable 07/01/20 06:01 [place] Rings Not Reportable 07/01/20 06:01 Julia Cells Not Reportable 07/01/20 06:01 Bite Cells Not Reportable 07/01/20 06:01 Crenated Cell Not Reportable 07/01/20 06:01 Elliptocytes Not Reportable 07/01/20 06:01 Acanthocytes (Spur) Not Reportable 07/01/20 06:01 Rouleaux Not Reportable 07/01/20 06:01 Hemoglobin C Crystals Not Reportable 07/01/20 06:01 Schistocytes Not Reportable 07/01/20 06:01 Malaria parasites Not Reportable 07/01/20 06:01 Kev Bodies Not Reportable 07/01/20 06:01 Hem Pathologist Commnt No 07/01/20 06:01 PT 14.2 Sec. (12.2-14.9) 05/29/20 15:10 INR 1.08 (0.87-1.13) 05/29/20 15:10 APTT 27.2 Sec. (24.2-36.6) 05/29/20 15:10 D-Dimer 2310.15 ng/mlDDU (0-234) H 06/29/20 14:45 Heparin Anti-Xa Level 0.34 U.I./ml (0.3-0.7) 06/19/20 10:46 ABG pH 7.396 pH Units (7.350-7.450) 07/02/20 04:11 POC ABG pCO2 35.8 mmHg (32.0-48.0) 07/01/20 05:02 ABG pCO2 41.9 mm Hg 07/02/20 04:11 ABG Oxyhemoglobin 92.6 (94-98) L 06/23/20 12:34 POC ABG pO2 90.8 mmHg (83-108) 07/01/20 05:02 ABG pO2 90.0 mm Hg (80.0-90.0) 07/02/20 04:11 POC ABG HCO3 22.1 07/01/20 05:02 ABG HCO3 25.1 mmol/L (20.0-26.0) 07/02/20 04:11 ABG O2 Saturation 97.1 % (95.0-99.0) 07/02/20 04:11 ABG O2 Content 7.5 (0.0-44) 07/02/20 04:11 POC ABG Base Excess -2.3 07/01/20 05:02 ABG Base Excess 0.2 mmol/L (-2.0-3.0) 07/02/20 04:11 ABG Hemoglobin 5.4 gm/dl (12.0-16.0) L 07/02/20 04:11 ABG Carboxyhemoglobin 1.6 % (0.0-5.0) 07/02/20 04:11 ABG Methemoglobin 0.4 % (0.0-1.5) 07/02/20 04:11 VBG pH 7.152 (7.320-7.420) L* 05/28/20 13:47 Carboxyhemoglobin 0.5 (0.5-1.5) 06/23/20 12:34 Oxyhemoglobin 95.1 % (95.0-99.0) 07/02/20 04:11 FiO2 30 % 07/02/20 04:11 Sodium 144 mmol/L (137-145) 07/02/20 04:23 Potassium 3.8 mmol/L (3.6-5.0) 07/02/20 04:23 Chloride 108.6 mmol/L (98-107) H 07/02/20 04:23 Carbon Dioxide 24 mmol/L (22-30) 07/02/20 04:23 Anion Gap 15 mmol/L 07/02/20 04:23 BUN 72 mg/dL (7-17) H 07/02/20 04:23 Creatinine 1.2 mg/dL (0.6-1.2) 07/02/20 04:23 Estimated GFR 46 ml/min 07/02/20 04:23 BUN/Creatinine Ratio 60 % 07/02/20 04:23 Glucose 112 mg/dL (65-100) H 07/02/20 04:23 POC Glucose 137 (70-105) H 07/02/20 05:54 Lactic Acid 0.60 mmol/L (0.7-2.0) L 06/27/20 05:00 Calcium 7.8 mg/dL (8.4-10.2) L 07/02/20 04:23 Ferritin 223.6 ng/mL (10.0-200.0) H 06/29/20 14:45 Total Bilirubin 0.20 mg/dL (0.1-1.2) 06/28/20 09:47 AST 24 units/L (5-40) 06/28/20 09:47 ALT 21 units/L (7-56) 06/28/20 09:47 Alkaline Phosphatase 113 units/L (35-129) 06/28/20 09:47 Lactate Dehydrogenase 367 units/L (91-180) H 06/29/20 14:45 C-Reactive Protein 3.60 mg/dL (0.00-1.30) H 06/29/20 14:45 Total Protein 5.0 g/dL (6.3-8.2) L 06/28/20 09:47 Albumin 2.1 g/dL (3.9-5) L 06/28/20 09:47 Albumin/Globulin Ratio 0.7 % 06/28/20 09:47 Total Creatine Kinase 300 units/L (30-135) H 07/01/20 06:01 CK-MB (CK-2) 2.0 ng/mL (0.0-4.0) 07/01/20 06:01 CK-MB (CK-2) Rel Index 0.6 (0-4) 07/01/20 06:01 Troponin T 0.067 ng/mL (0.00-0.029) H 07/01/20 06:01 Triglycerides 142 mg/dL (2-149) 07/01/20 06:01 Cholesterol 137 mg/dL (50-199) 07/01/20 06:01 LDL Cholesterol Direct 62 mg/dL (50-130) 07/01/20 06:01 HDL Cholesterol 61 mg/dL (40-59) H 07/01/20 06:01 Cholesterol/HDL Ratio 2.24 % 07/01/20 06:01 Procalcitonin 2.45 ng/mL (<0.15) 06/29/20 14:45 Urine Color Yellow (Yellow) 06/06/20 04:00 Urine Turbidity Cloudy (Clear) 06/06/20 04:00 Urine pH 5.0 (5.0-7.0) 06/06/20 04:00 Ur Specific [place] 1.012 (1.003-1.030) 06/06/20 04:00 Urine Protein 100 mg/dl mg/dL (Negative) 06/06/20 04:00 Urine Glucose (UA) 50 mg/dL (Negative) 06/06/20 04:00 Urine Ketones Neg mg/dL (Negative) 06/06/20 04:00 Urine Blood Sm (Negative) 06/06/20 04:00 Urine Nitrite Neg (Negative) 06/06/20 04:00 Urine Bilirubin Neg (Negative) 06/06/20 04:00 Urine Urobilinogen < 2.0 mg/dL (<2.0) 06/06/20 04:00 Ur Leukocyte Esterase Neg (Negative) 06/06/20 04:00 Urine WBC (Auto) 15.0 /HPF (0.0-6.0) H 06/06/20 04:00 Urine RBC (Auto) 23.0 /HPF (0.0-6.0) 06/06/20 04:00 U Epithel Cells (Auto) 8.0 /HPF (0-13.0) 06/06/20 04:00 Urine Bacteria (Auto) 2+ /HPF (Negative) 06/06/20 04:00 Amorphous Crystals 1+ 06/06/20 04:00 Hyaline Casts 16 /LPF 06/06/20 04:00 Urine Mucus 2+ /HPF 06/06/20 04:00 Urine Yeast (Budding) 2+ /HPF 06/03/20 Unknown Urine Creatinine 82.2 mg/dL (0.1-20.0) H 06/06/20 04:00 Urine Sodium 20 mmol/L 06/06/20 04:00 Urine Total Protein 196 mg/dL (5-11.8) H 06/06/20 04:00 Nasal Screen MRSA (PCR) Negative (Negative) 06/29/20 08:30 Coronavirus (PCR) Positive (Negative) A 06/29/20 Unknown Blood Type A POSITIVE 06/26/20 09:27 Antibody Screen Negative 06/26/20 09:27 Crossmatch See Detail 06/26/20 09:27 Microbiology: Microbiology 06/28/20 12:30 Peripheral/Venous Blood Culture - Preliminary NO GROWTH AFTER 72 HOURS 06/28/20 12:30 Peripheral/Venous Blood Culture - Preliminary NO GROWTH AFTER 72 HOURS - Diagnostic Impressions Diagnostic Impressions: Echocardiogram Limited Views 05/29/20 13:52 Transthoracic Echocardiogram Indication: Pulm Embolus BP: 169/76 HR: 85 Conclusions *Limited study for RV size post cardiopulmonar arrest. *RV is only slightly dilated, no significant difference from prior echo 05/13/2020. *Global left ventricular systolic function is at the lower limits of normal. *The estimated ejection fraction is 45-50%. *Mild to moderate concentric left ventricular hypertrophy is observed. *The left and right atria are both mild to moderately dilated. Findings Left Ventricle: The left ventricular chamber size is mildly dilated. Mild to moderate concentric left ventricular hypertrophy is observed. Global left ventricular systolic function is at the lower limits of normal. The estimated ejection fraction is 45-50%. Left Atrium: The left atrium is mild to moderately dilated. Right Ventricle: The right ventricle is slightly dilated. Right Atrium: The right atrium is mild to moderately dilated. Aortic Valve: The aortic valve leaflets are moderately thickened. Mitral Valve: There is mitral annular calcification. The mitral valve leaflets are moderately thickened. Tricuspid Valve: The tricuspid valve leaflets are mildly thickened. Pericardium: A trivial pericardial effusion is visualized. NDUM: 05/29/20 1808 Amended Report Transthoracic Echocardiogram Indication: Pulm Embolus BP: 169/76 HR: 85 Conclusions *Limited study for RV size post cardiopulmonary arrest. *RV is only slightly dilated, no significant difference from prior echo 05/13/2020. *Global left ventricular systolic function is at the lower limits of normal. *The estimated ejection fraction is 45-50%. *Mild to moderate concentric left ventricular hypertrophy is observed. *The left and right atria are both mild to moderately dilated. Findings Left Ventricle: The left ventricular chamber size is mildly dilated. Mild to moderate concentric left ventricular hypertrophy is observed. Global left ventricular systolic function is at the lower limits of normal. The estimated ejection fraction is 45-50%. Left Atrium: The left atrium is mild to moderately dilated. Right Ventricle: The right ventricle is slightly dilated. Right Atrium: The right atrium is mild to moderately dilated. Aortic Valve: The aortic valve leaflets are moderately thickened. Mitral Valve: There is mitral annular calcification. The mitral valve leaflets are moderately thickened. Tricuspid Valve: The tricuspid valve leaflets are mildly thickened. Pericardium: A trivial pericardial effusion is visualized. Helm/IV: Voiding Method Indwelling Catheter IV Catheter Type [Left Upper Mid-line arm] IV Catheter Type [Right CVL Internal Jugular] IV Catheter Type [Right Hand] INT / Saline Lock IV Catheter Type [Right Wrist] Not found on patient IV Catheter Type [Left Hand] INT / Saline Lock IV Catheter Type [Left INT / Saline Lock Antecubital] IV Catheter Type [Right Peripheral IV Forearm] IV Catheter Type [Left Leg] Intra-osseous Active Medications - Current Medications Current Medications: Generic Name Dose Route Start Last Admin Trade Name Freq PRN Reason Stop Dose Admin Acetaminophen 650 mg 06/09/20 10:57 06/29/20 21:18 Tylenol FEEDTUBE 650 mg Q6H PRN Administration Fever >101 Amlodipine Besylate 10 mg 06/02/20 11:00 07/01/20 09:01 Amlodipine PO 10 mg DAILY NELSON Administration Lipase/Protease/Amylase 1 each 05/29/20 13:39 06/24/20 22:51 Pancreazhoracio Lawson 10,500 Unit FEEDTUBE 1 each PRN PRN Administration For Clogged Feeding Tube Carvedilol 12.5 mg 06/03/20 10:00 07/01/20 21:03 Coreg PO 12.5 mg BID NELSON Administration Clonidine HCl 0.2 mg 06/23/20 22:00 07/01/20 21:04 Catapres PO 0.2 mg Q12HR NELSON Administration Glycopyrrolate 2 mg 06/09/20 14:00 07/01/20 20:59 Glycopyrrolate PO 2 mg TID NELSON Administration Heparin Sodium (Porcine) 5,000 unit 06/30/20 14:00 07/02/20 05:23 Heparin SUB-Q 5,000 unit Q8HR NELSON Administration Hydralazine HCl 50 mg 06/03/20 09:00 07/02/20 05:09 Apresoline PO 50 mg Q8HR NELSON Administration Hydrophilic Ointment 1 applic 05/28/20 13:49 Vaseline Lip Therapy TP Q2HR PRN Dry Lips Vasopressin 20 unit/ Sodium 101 mls @ 9.09 mls/hr 06/26/20 19:00 06/26/20 19:30 Chloride IV 0 units/min TITR NELSON 0 mls/hr Titration Protocol 0.03 UNITS/MIN Norepinephrine 4 mg in 250 mls @ 7.5 mls/hr 06/26/20 19:00 06/26/20 20:06 Levophed Drip 4 Mg/Ns 250 Ml IV 0 mcg/min TITR NELSON 0 mls/hr Titration Protocol 2 MCG/MIN Phenylephrine HCl 100 mg/ 100 mls @ 3 mls/hr 06/26/20 18:15 Sodium Chloride IV TITR NELSON Protocol 50 MCG/MIN Cefepime HCl 2 gm in 100 mls @ 200 mls/hr 06/28/20 13:00 07/02/20 05:09 Cefepime/Ns 2 Gm/100 Ml IV 200 mls/hr Q8HR NELSON Administration Protocol Sodium Chloride 500 mls @ 5 mls/hr 06/30/20 22:00 06/30/20 21:42 Nacl 0.9% 500 Ml IV 5 mls/hr DIRECT NELSON Administration Insulin Glargine 10 units 06/08/20 22:00 07/01/20 21:03 Lantus SUB-Q 10 units QHS NELSON Administration Insulin Human Lispro 0 unit 05/29/20 18:00 07/02/20 05:52 Humalog SUB-Q Not Given Q6H NELSON Protocol Labetalol HCl 20 mg 06/03/20 09:00 06/26/20 21:27 Labetalol IV 20 mg Q4H PRN Administration HYPERTENSION Lansoprazole 30 mg 06/05/20 22:00 07/01/20 21:03 Prevacid Solutab FEEDTUBE 30 mg BID NELSON Administration Levetiracetam 500 mg 06/16/20 11:00 07/01/20 21:02 Keppra PO 500 mg BID NELSON Administration Lidocaine HCl 15 ml 06/26/20 20:00 07/01/20 21:04 Magic Mouthwash PO Not Given TID NELSON Metoclopramide HCl 10 mg 06/10/20 20:00 07/02/20 02:42 Reglan IV 10 mg Q6H NELSON Administration Multi-Ingred Cream/Lotion/Oil/Oint 1 applic 05/28/20 13:49 Artificial Tears Ophth Oint OU Q4HR PRN Dry Eye(s) Ondansetron HCl 4 mg 06/02/20 09:00 06/09/20 16:48 Zofran IV 4 mg Q8H PRN Administration Nausea And Vomiting Scopolamine 1 each 06/05/20 14:00 06/29/20 09:44 Transderm-Scop TD 1 each Q3D NELSON Administration Senna 17.6 mg 06/03/20 10:00 07/01/20 21:04 Senokot FEEDTUBE Not Given BID NELSON Simple Syrup 15 ml 05/29/20 13:39 Simple Syrup FEEDTUBE PRN PRN Hypoglycemia Simple Syrup 30 ml 05/29/20 13:39 Simple Syrup FEEDTUBE PRN PRN Hypoglycemia Sodium Bicarbonate 325 mg 05/29/20 13:39 Sodium Bicarbonate FEEDTUBE PRN PRN For Clogged Feeding Tube Sodium Chloride 10 ml 05/28/20 22:00 07/01/20 21:03 Sodium Chloride Flush Syringe 10 Ml IV 10 ml BID NELSON Administration Sodium Chloride 10 ml 05/28/20 19:08 06/16/20 17:50 Sodium Chloride Flush Syringe 10 Ml IV 10 ml PRN PRN Administration LINE FLUSH Nutrition/Malnutrition Assess - Dietary Evaluation Nutrition/Malnutrition Findings: Nutrition Notes Start: 05/29/20 11:45 Freq: Status: Active Protocol: Document 07/01/20 12:59 [email or web address] (Rec: 07/01/20 13:35 [email or web address]) Co-Sign 07/01/20 12:59 LP Nutrition Notes Initial or Follow up Reassessment Current Diagnosis Acute Kidney Injury,Diabetes, Heart Failure,Respiratory Failure Other Pertinent Diagnosis COVID-19 (+) Current Diet Glucerna 1.2 at 55ml/hr Labs/Tests Na 147 BUN 71 Cr 1.3 BG 193 Pertinent Medications Humalog Height 5 ft 6 in Weight 123 kg [place] Body Weight (kg) 59.09 BMI 43.7 Weight Status Morbidly Obese Subjective/Other Information Per RN, TF on hold for gastric residuals of 450ml. Today residuals were at 240ml. recommended trickle feed of 10ml/hr and increase to goal. Pt Code Blue this AM, pt stable on vent. Percent of energy/protein needs met: 0%/0% Burn Absent Trauma Absent Current % PO Negligible Minimum of two criteria No physical signs of malnutrition #1 Nutrition Diagnosis Inadequate oral intake Diagnosis Progress(for reassessment Continues documentation) Is patient on ventilator? Yes Is Patient Ambulatory and/or Out of Bed No REE-([facility]-confined to bed) 2172.576 Kcal/Kg value to use for calculation 13 Approximate Energy Requirements Using 1599 kcal/Kg Calculation Used for Recommendations Kcal/kg Additional Notes Protein needs up to 148g (up to 2.5g/kg IBW) Fluid needs 1ml/kcal Nutrition Intervention Change Diet Order: Continue Nutrition Support: Glucerna 1.2 at 55ml/hr Flush 100ml q4h Kcal 1,584 Protein (gm) 79 Fluid (mL) 1,062 Goal #1 TF tolerance Goal #2 TF to meet at least 65%-70% energy and 80% pro needs Anticipated Discharge Needs: Unable to determine at this time Follow-Up By: 07/03/20 Additional Comments F/U TF tolerance, goal rate and water flush.
[2020-07-02] MEDS: SCOPOLAMINE TRANSDERMAL PATCH 72 HR TD SCH (09:33)
[2020-07-02] MEDS: GLYCOPYRROLATE 2 MG TAB PO SCH ×3 (09:34→22:09)
[2020-07-02] MEDS: amLODIPine 10 MG TAB PO SCH (09:34)
[2020-07-02] MEDS: MAGIC MOUTHWASH 30ML PO SCH ×3 (09:35→22:09)
[2020-07-02] MEDS: cloNIDine 0.2 MG TAB PO SCH ×2 (09:35→22:08)
[2020-07-02] MEDS: levETIRAcetam 500 MG/5 ML ORAL LIQD PO SCH ×2 (09:35→22:09)
[2020-07-02] MEDS: LANSOPRAZOLE 30 MG SOLUTAB FEEDTUBE SCH ×2 (09:35→22:06)
[2020-07-02] MEDS: carvediloL 12.5 MG TAB PO SCH ×2 (09:35→22:06)
--- NOTE | 2020-07-02 09:39 | Progress Note ---
Assessment and Plan Cultures: Coronavirus PCR: Positive 05/28/2020 blood culture: no growth 05/28/2020 tracheal aspirate: Usual respiratory bobo 05/28/2020 urine culture: No growth 06/03/2020 urine culture: No growth 06/09/2020 tracheal aspirate Klebsiella pneumoniae 06/28/2020 sputum culture positive for Klebsiella 06/28/2020 blood cultures no growth today A/P: 64-year-old female with hypertension, diastolic CHF, pulmonary hypertension, diabetes, obesity hypoventilation syndrome was admitted to the emergency room after she called EMS due to difficulty breathing. On the way to the hospital, patient developed cardiac arrest and was treated as per ACLS protocol: #New cardiac arrest on 07/01/2020 #New sepsis: Fever improving. After asystolic cardiac arrest on 06/26/2028. Fever trending down.. ? Healthcare associated pneumonia #Bilateral pneumonia: Secondary to COVID-19. Completed 5 days of IV Remdesivir 06/02/2020. ? Healthcare associated pneumonia, repeat sputum Klebsiella. Chest x-ray worsening infiltrates. #Acute hypoxic respiratory failure: On mechanical ventilation. Minimal vent settings. #Status post PEA arrest, encephalopathy #HF: EF 45-50% #Mild LFT elevation: likely from COVID-19. #AVANI: Improving. #Severe constipation: Status post manual disimpaction Recs: -Continue cefepime 2 g IV every 8 hours total 7 days - day 5 of 7 -Monitor mentation Very poor prognosis MD [facility] C: [phone] O: [phone] F: [phone] Subjective Date of service: 07/02/20 Principal diagnosis: Coffee Ground Emesis Interval history: Remains intubated on the ventilator, FiO2 30%. Per nursing staff, a cold blue was called due to rapid desaturation and bradycardia. Initially found in PEA and then asystole. Patient received epinephrine and atropine, improved. Objective - Constitutional Vitals: Vital Signs Temp Pulse Resp BP Pulse Ox 99.0 F 79 17 154/50 99 07/02/20 04:00 07/02/20 08:55 07/02/20 08:00 07/02/20 08:55 07/02/20 08:55 Temperature -Last 24 Hours Temperature 99.0 F Temperature 98.9 F Temperature 98.7 F - Labs CBC & Chem 7: 07/01/20 06:01 07/02/20 04:23 Labs: Abnormal lab results 07/01/20 07/01/20 07/02/20 Range/Units 12:23 17:40 00:18 ABG Hemoglobin (12.0-16.0) gm/dl Chloride (98-107) mmol/L BUN (7-17) mg/dL Glucose (65-100) mg/dL POC Glucose 111 H 135 H 145 H (70-105) Calcium (8.4-10.2) mg/dL 07/02/20 07/02/20 07/02/20 Range/Units 04:11 04:23 05:54 ABG Hemoglobin 5.4 L (12.0-16.0) gm/dl Chloride 108.6 H (98-107) mmol/L BUN 72 H (7-17) mg/dL Glucose 112 H (65-100) mg/dL POC Glucose 137 H (70-105) Calcium 7.8 L (8.4-10.2) mg/dL
[2020-07-02] MEDS: SENNOSIDES ORAL LIQD 8.8 MG/5 ML ORAL LIQD FEEDTUBE SCH ×2 (10:51→22:10)
--- NOTE | 2020-07-02 12:42 | Progress Note ---
Assessment and Plan Acute hypoxemic respiratory failure on MVS Coronavirus-19 infection. Bilateral pulmonary infiltrates, bilateral pneumonia plus likely element of Pulmonary edema. Bilateral pulmonary edema. Bilateral pleural effusions. History of congestive heart failure. Morbid obesity. History of pulmonary hypertension. History of hypertension. Diabetes. Obesity hypoventilation syndrome. Elevated serum inflammatory markers to include D-dimers and LDH levels. Hyperkalemia at presentation. Metabolic acidosis. Oropharyngeal dysphagia. - continue Reglan re: high residuals - begin Modafinil re: lethargy / somnolence - added Pepcid - continue care as below otherwise; - Daily SAT and SBT assessment as tolerated - continue to wean supplemental oxygen for target O2 sat's > 90% acutely - VAP bundle addressed - continue lung protective strategies - continue bronchodilators with pulmonary hygiene per RT - wean per pulmonary driven protocols otherwise - continue accuchecks resumed with glycemic control per SSI (While critically ill target blood glucose of 140-180 mg/dL; avoid hypoglycemia) - sedation prn for target RASS 0 to -1 - continue to avoid benzodiazepine's, reduce the possibility of delirium - completed AB's per ID rec's - prn analgesia per CPOT score - Maintenance of sleep-wake cycle, avoid delirium - continue enteral nutritional support at goal rate as tolerated - G.I. & VTE prophylaxis with heparin & famotidine - PT/OT/ROM exercises - continue mobility protocols for pressure ulcer prophylaxis - Monitor hemodynamics closely - continue other care per attending / other consultants - discharge planning ongoing concurrently .... Re-evaluate in am & prn CONDITION: CRITICAL PROGNOSIS: GUARDED CODE STATUS: FULL CODE The high probability of a clinically significant, sudden or life-threatening deterioration of the [respiratory, cardiovascular, GI & neurologic] system(s) required my full and direct attention, intervention and personal management. The aggregate critical care time was [34] minutes without overlap. Time includes spent on; [x] Data Review and interpretation [x] Patient assessment and monitoring of vital signs [x] Documentation [x] Medication orders and management Subjective Date of service: 07/02/20 Principal diagnosis: Ac hypoxemic resp failure; COVID-19; pneumonia; CHF; Pulm HTN; OHS; DM II Interval history: Patient is seen today for: Ac hypoxemic resp failure; Coronavirus-19 infection; pneumonia; Pulmonary edema; Bilateral pleural effusions; CHF; Morbid obesity; pulmonary hypertension; OHS; DM II Seen and examined at bedside; 24hour events reviewed; nursing and respiratory care staff consulted; no adverse overnight events reported to me; resting peacefully in bed; remains on MVS; lethargic; no emesis or overt aspiration; afebrile; + high residuals though Objective Vital Signs - 12hr 07/02/20 07/02/20 07/02/20 01:00 02:00 03:00 Temperature Pulse Rate 74 74 76 Pulse Rate [ From Monitor] Respiratory 18 18 17 Rate Blood Pressure 143/70 150/63 164/66 O2 Sat by Pulse 99 99 99 Oximetry 07/02/20 07/02/20 07/02/20 04:00 04:45 05:00 Temperature 99.0 F Pulse Rate 76 79 81 Pulse Rate [ 74 From Monitor] Respiratory 18 14 Rate Blood Pressure 167/55 156/72 167/55 O2 Sat by Pulse 98 99 95 Oximetry 07/02/20 07/02/20 07/02/20 05:09 06:00 07:00 Temperature Pulse Rate 78 78 80 Pulse Rate [ From Monitor] Respiratory 18 21 Rate Blood Pressure 169/92 138/48 138/56 O2 Sat by Pulse 98 98 Oximetry 07/02/20 07/02/20 07/02/20 08:00 08:55 09:00 Temperature Pulse Rate 72 79 79 Pulse Rate [ 72 From Monitor] Respiratory 16 19 Rate Blood Pressure 148/62 154/50 154/50 O2 Sat by Pulse 99 99 99 Oximetry 07/02/20 07/02/20 07/02/20 09:34 09:35 10:00 Temperature Pulse Rate 78 79 79 Pulse Rate [ From Monitor] Respiratory 17 Rate Blood Pressure 160/56 160/56 160/56 O2 Sat by Pulse 99 Oximetry 07/02/20 07/02/20 07/02/20 11:00 11:49 12:00 Temperature Pulse Rate 77 73 78 Pulse Rate [ 79 From Monitor] Respiratory 17 18 Rate Blood Pressure 172/66 85/41 160/61 O2 Sat by Pulse 98 98 98 Oximetry Constitutional: appears uncomfortable, other (elderly looking obese female on HFNC with mildly increased respiratory effort at rest on MVS) Eyes: non-icteric ENT: oropharynx dry, other (ETT 23-24 cm AYAN) Neck: supple, no lymphadenopathy, no JVD, other (large neck circumference) Effort: mildly labored Ascultation: Bilateral: diminished breath sounds, rales Percussion: Bilateral: not dull Cardiovascular: regular rate and rhythm, other (S1,S2) Gastrointestinal: normoactive bowel sounds, soft, non-tender, non-distended Integumentary: normal Extremities: no cyanosis, no edema, pink and warm, pulses normal, no ischemia or petechiae Neurologic: pupils equal and round, unable to assess, other (lethargic to obtunded) Psychiatric: other (unable to assess re: AMS) CBC and BMP: 07/01/20 06:01 07/02/20 04:23 ABG, PT/INR, D-dimer: ABG ABG pH 7.396 pH Units (7.350-7.450) 07/02/20 04:11 POC ABG pCO2 35.8 mmHg (32.0-48.0) 07/01/20 05:02 ABG pCO2 41.9 mm Hg 07/02/20 04:11 POC ABG pO2 90.8 mmHg (83-108) 07/01/20 05:02 ABG pO2 90.0 mm Hg (80.0-90.0) 07/02/20 04:11 POC ABG HCO3 22.1 07/01/20 05:02 ABG O2 Saturation 97.1 % (95.0-99.0) 07/02/20 04:11 PT/INR, D-dimer PT 14.2 Sec. (12.2-14.9) 05/29/20 15:10 INR 1.08 (0.87-1.13) 05/29/20 15:10 D-Dimer 2310.15 ng/mlDDU (0-234) H 06/29/20 14:45 Abnormal lab findings: Abnormal Labs 05/28/20 05/28/20 05/28/20 13:29 13:47 13:47 WBC RBC Hgb Hct MCHC RDW 15.3 H Lymph % (Auto) [place] % (Auto) Eos % (Auto) Lymph # [place] # Seg Neutrophils % Seg Neuts % (Manual) Lymphocytes % (Manual) Seg Neutrophils # Seg Neutrophils # Man Lymphocytes # (Manual) Eosinophils % (Manual) Monocytes # (Manual) Eosinophils # (Manual) D-Dimer Heparin Anti-Xa Level ABG pH POC ABG pCO2 POC ABG pO2 ABG pO2 ABG HCO3 ABG O2 Saturation ABG Base Excess ABG Hemoglobin ABG Oxyhemoglobin VBG pH Oxyhemoglobin Sodium Potassium 6.6 H* Chloride 109.2 H Carbon Dioxide 17 L BUN 29 H Creatinine 1.3 H Glucose 265 H POC Glucose 248 H Lactic Acid Calcium 8.1 L Ferritin AST 63 H Alkaline Phosphatase Lactate Dehydrogenase Total Creatine Kinase 301 H CK-MB (CK-2) 4.3 H C-Reactive Protein Total Protein 5.4 L Albumin 2.6 L Troponin T HDL Cholesterol Urine WBC (Auto) Urine Creatinine Urine Total Protein Coronavirus (PCR) Crossmatch 05/28/20 05/28/20 05/28/20 13:47 13:47 14:46 WBC RBC Hgb Hct MCHC RDW Lymph % (Auto) [place] % (Auto) Eos % (Auto) Lymph # [place] # Seg Neutrophils % Seg Neuts % (Manual) Lymphocytes % (Manual) Seg Neutrophils # Seg Neutrophils # Man Lymphocytes # (Manual) Eosinophils % (Manual) Monocytes # (Manual) Eosinophils # (Manual) D-Dimer Heparin Anti-Xa Level ABG pH POC ABG pCO2 POC ABG pO2 ABG pO2 ABG HCO3 ABG O2 Saturation ABG Base Excess ABG Hemoglobin ABG Oxyhemoglobin VBG pH 7.152 L* Oxyhemoglobin Sodium Potassium 7.2 H* Chloride Carbon Dioxide BUN Creatinine Glucose POC Glucose Lactic Acid 3.40 H* Calcium Ferritin AST Alkaline Phosphatase Lactate Dehydrogenase Total Creatine Kinase CK-MB (CK-2) C-Reactive Protein Total Protein Albumin Troponin T HDL Cholesterol Urine WBC (Auto) Urine Creatinine Urine Total Protein Coronavirus (PCR) Crossmatch 05/28/20 05/28/20 05/28/20 15:33 15:33 15:51 WBC RBC Hgb Hct MCHC RDW Lymph % (Auto) [place] % (Auto) Eos % (Auto) Lymph # [place] # Seg Neutrophils % Seg Neuts % (Manual) Lymphocytes % (Manual) Seg Neutrophils # Seg Neutrophils # Man Lymphocytes # (Manual) Eosinophils % (Manual) Monocytes # (Manual) Eosinophils # (Manual) D-Dimer 8780.43 H Heparin Anti-Xa Level ABG pH 7.284 L POC ABG pCO2 POC ABG pO2 ABG pO2 273.0 H ABG HCO3 ABG O2 Saturation 99.4 H ABG Base Excess -6.1 L ABG Hemoglobin 17.2 H ABG Oxyhemoglobin VBG pH Oxyhemoglobin Sodium Potassium Chloride Carbon Dioxide BUN Creatinine Glucose 152 H POC Glucose Lactic Acid Calcium Ferritin AST Alkaline Phosphatase Lactate Dehydrogenase 365 H Total Creatine Kinase CK-MB (CK-2) C-Reactive Protein Total Protein Albumin Troponin T HDL Cholesterol Urine WBC (Auto) Urine Creatinine Urine Total Protein Coronavirus (PCR) Crossmatch 05/28/20 05/28/20 05/28/20 16:30 20:41 23:20 WBC RBC Hgb Hct MCHC RDW Lymph % (Auto) [place] % (Auto) Eos % (Auto) Lymph # [place] # Seg Neutrophils % Seg Neuts % (Manual) Lymphocytes % (Manual) Seg Neutrophils # Seg Neutrophils # Man Lymphocytes # (Manual) Eosinophils % (Manual) Monocytes # (Manual) Eosinophils # (Manual) D-Dimer Heparin Anti-Xa Level ABG pH POC ABG pCO2 POC ABG pO2 ABG pO2 ABG HCO3 ABG O2 Saturation ABG Base Excess ABG Hemoglobin ABG Oxyhemoglobin VBG pH Oxyhemoglobin Sodium Potassium Chloride Carbon Dioxide BUN Creatinine Glucose POC Glucose 225 H 224 H Lactic Acid Calcium Ferritin AST Alkaline Phosphatase Lactate Dehydrogenase Total Creatine Kinase CK-MB (CK-2) C-Reactive Protein Total Protein Albumin Troponin T HDL Cholesterol Urine WBC (Auto) 17.0 H Urine Creatinine Urine Total Protein Coronavirus (PCR) Crossmatch 05/28/20 05/29/20 05/29/20 Unknown 04:35 04:43 WBC RBC 3.48 L Hgb 9.8 L Hct 29.4 L MCHC RDW 16.0 H Lymph % (Auto) 7.4 L [place] % (Auto) Eos % (Auto) Lymph # 0.7 L [place] # Seg Neutrophils % 89.1 H Seg Neuts % (Manual) Lymphocytes % (Manual) Seg Neutrophils # 8.1 H Seg Neutrophils # Man Lymphocytes # (Manual) Eosinophils % (Manual) Monocytes # (Manual) Eosinophils # (Manual) D-Dimer Heparin Anti-Xa Level ABG pH POC ABG pCO2 POC ABG pO2 ABG pO2 ABG HCO3 19.3 L ABG O2 Saturation ABG Base Excess -4.5 L ABG Hemoglobin 9.7 L ABG Oxyhemoglobin VBG pH Oxyhemoglobin Sodium Potassium Chloride Carbon Dioxide BUN Creatinine Glucose POC Glucose Lactic Acid Calcium Ferritin AST Alkaline Phosphatase Lactate Dehydrogenase Total Creatine Kinase CK-MB (CK-2) C-Reactive Protein Total Protein Albumin Troponin T HDL Cholesterol Urine WBC (Auto) Urine Creatinine Urine Total Protein Coronavirus (PCR) Positive A Crossmatch 05/29/20 05/29/20 05/29/20 04:43 15:10 17:17 WBC RBC Hgb 9.3 L Hct 28.7 L MCHC RDW Lymph % (Auto) [place] % (Auto) Eos % (Auto) Lymph # [place] # Seg Neutrophils % Seg Neuts % (Manual) Lymphocytes % (Manual) Seg Neutrophils # Seg Neutrophils # Man Lymphocytes # (Manual) Eosinophils % (Manual) Monocytes # (Manual) Eosinophils # (Manual) D-Dimer Heparin Anti-Xa Level ABG pH POC ABG pCO2 POC ABG pO2 ABG pO2 ABG HCO3 ABG O2 Saturation ABG Base Excess ABG Hemoglobin ABG Oxyhemoglobin VBG pH Oxyhemoglobin Sodium Potassium Chloride 110.2 H Carbon Dioxide 18 L BUN 32 H Creatinine 1.4 H Glucose 180 H POC Glucose 147 H Lactic Acid Calcium Ferritin AST Alkaline Phosphatase Lactate Dehydrogenase Total Creatine Kinase CK-MB (CK-2) C-Reactive Protein Total Protein Albumin Troponin T HDL Cholesterol Urine WBC (Auto) Urine Creatinine Urine Total Protein Coronavirus (PCR) Crossmatch 05/30/20 05/30/20 05/30/20 00:08 00:12 04:15 WBC RBC Hgb Hct MCHC RDW Lymph % (Auto) [place] % (Auto) Eos % (Auto) Lymph # [place] # Seg Neutrophils % Seg Neuts % (Manual) Lymphocytes % (Manual) Seg Neutrophils # Seg Neutrophils # Man Lymphocytes # (Manual) Eosinophils % (Manual) Monocytes # (Manual) Eosinophils # (Manual) D-Dimer Heparin Anti-Xa Level 0.71 H ABG pH 7.460 H POC ABG pCO2 POC ABG pO2 ABG pO2 106.0 H ABG HCO3 18.9 L ABG O2 Saturation ABG Base Excess -4.4 L ABG Hemoglobin 6.8 L ABG Oxyhemoglobin VBG pH Oxyhemoglobin Sodium Potassium Chloride Carbon Dioxide BUN Creatinine Glucose POC Glucose 195 H Lactic Acid Calcium Ferritin AST Alkaline Phosphatase Lactate Dehydrogenase Total Creatine Kinase CK-MB (CK-2) C-Reactive Protein Total Protein Albumin Troponin T HDL Cholesterol Urine WBC (Auto) Urine Creatinine Urine Total Protein Coronavirus (PCR) Crossmatch 05/30/20 05/30/20 05/30/20 06:07 08:37 12:33 WBC RBC Hgb Hct MCHC RDW Lymph % (Auto) [place] % (Auto) Eos % (Auto) Lymph # [place] # Seg Neutrophils % Seg Neuts % (Manual) Lymphocytes % (Manual) Seg Neutrophils # Seg Neutrophils # Man Lymphocytes # (Manual) Eosinophils % (Manual) Monocytes # (Manual) Eosinophils # (Manual) D-Dimer Heparin Anti-Xa Level 0.85 H ABG pH POC ABG pCO2 POC ABG pO2 ABG pO2 ABG HCO3 ABG O2 Saturation ABG Base Excess ABG Hemoglobin ABG Oxyhemoglobin VBG pH Oxyhemoglobin Sodium Potassium Chloride Carbon Dioxide BUN Creatinine Glucose POC Glucose 182 H 187 H Lactic Acid Calcium Ferritin AST Alkaline Phosphatase Lactate Dehydrogenase Total Creatine Kinase CK-MB (CK-2) C-Reactive Protein Total Protein Albumin Troponin T HDL Cholesterol Urine WBC (Auto) Urine Creatinine Urine Total Protein Coronavirus (PCR) Crossmatch 05/30/20 05/30/20 05/30/20 15:58 17:57 23:36 WBC RBC Hgb Hct MCHC RDW Lymph % (Auto) [place] % (Auto) Eos % (Auto) Lymph # [place] # Seg Neutrophils % Seg Neuts % (Manual) Lymphocytes % (Manual) Seg Neutrophils # Seg Neutrophils # Man Lymphocytes # (Manual) Eosinophils % (Manual) Monocytes # (Manual) Eosinophils # (Manual) D-Dimer Heparin Anti-Xa Level 1.03 H ABG pH POC ABG pCO2 POC ABG pO2 ABG pO2 ABG HCO3 ABG O2 Saturation ABG Base Excess ABG Hemoglobin ABG Oxyhemoglobin VBG pH Oxyhemoglobin Sodium Potassium Chloride Carbon Dioxide BUN Creatinine Glucose POC Glucose 208 H 185 H Lactic Acid Calcium Ferritin AST Alkaline Phosphatase Lactate Dehydrogenase Total Creatine Kinase CK-MB (CK-2) C-Reactive Protein Total Protein Albumin Troponin T HDL Cholesterol Urine WBC (Auto) Urine Creatinine Urine Total Protein Coronavirus (PCR) Crossmatch 05/31/20 05/31/20 05/31/20 02:16 03:55 06:16 WBC RBC Hgb 9.2 L Hct 27.5 L MCHC RDW Lymph % (Auto) [place] % (Auto) Eos % (Auto) Lymph # [place] # Seg Neutrophils % Seg Neuts % (Manual) Lymphocytes % (Manual) Seg Neutrophils # Seg Neutrophils # Man Lymphocytes # (Manual) Eosinophils % (Manual) Monocytes # (Manual) Eosinophils # (Manual) D-Dimer Heparin Anti-Xa Level ABG pH POC ABG pCO2 POC ABG pO2 ABG pO2 94.7 H ABG HCO3 18.6 L ABG O2 Saturation ABG Base Excess -5.5 L ABG Hemoglobin 7.9 L ABG Oxyhemoglobin VBG pH Oxyhemoglobin Sodium Potassium Chloride Carbon Dioxide BUN Creatinine Glucose POC Glucose 160 H Lactic Acid Calcium Ferritin AST Alkaline Phosphatase Lactate Dehydrogenase Total Creatine Kinase CK-MB (CK-2) C-Reactive Protein Total Protein Albumin Troponin T HDL Cholesterol Urine WBC (Auto) Urine Creatinine Urine Total Protein Coronavirus (PCR) Crossmatch 05/31/20 05/31/20 05/31/20 12:20 13:03 18:13 WBC RBC Hgb Hct MCHC RDW Lymph % (Auto) [place] % (Auto) Eos % (Auto) Lymph # [place] # Seg Neutrophils % Seg Neuts % (Manual) Lymphocytes % (Manual) Seg Neutrophils # Seg Neutrophils # Man Lymphocytes # (Manual) Eosinophils % (Manual) Monocytes # (Manual) Eosinophils # (Manual) D-Dimer Heparin Anti-Xa Level ABG pH POC ABG pCO2 POC ABG pO2 ABG pO2 ABG HCO3 ABG O2 Saturation ABG Base Excess ABG Hemoglobin ABG Oxyhemoglobin VBG pH Oxyhemoglobin Sodium Potassium Chloride Carbon Dioxide 18 L BUN 48 H Creatinine 1.6 H Glucose 115 H POC Glucose 128 H 159 H Lactic Acid Calcium 8.3 L Ferritin AST Alkaline Phosphatase Lactate Dehydrogenase Total Creatine Kinase CK-MB (CK-2) C-Reactive Protein Total Protein 5.4 L Albumin 2.4 L Troponin T HDL Cholesterol Urine WBC (Auto) Urine Creatinine Urine Total Protein Coronavirus (PCR) Crossmatch 05/31/20 06/01/20 06/01/20 23:51 04:00 05:48 WBC RBC Hgb Hct MCHC RDW Lymph % (Auto) [place] % (Auto) Eos % (Auto) Lymph # [place] # Seg Neutrophils % Seg Neuts % (Manual) Lymphocytes % (Manual) Seg Neutrophils # Seg Neutrophils # Man Lymphocytes # (Manual) Eosinophils % (Manual) Monocytes # (Manual) Eosinophils # (Manual) D-Dimer Heparin Anti-Xa Level ABG pH POC ABG pCO2 POC ABG pO2 ABG pO2 109.8 H ABG HCO3 18.8 L ABG O2 Saturation ABG Base Excess -5.9 L ABG Hemoglobin 7.8 L ABG Oxyhemoglobin VBG pH Oxyhemoglobin Sodium Potassium Chloride Carbon Dioxide BUN Creatinine Glucose POC Glucose 171 H 133 H Lactic Acid Calcium Ferritin AST Alkaline Phosphatase Lactate Dehydrogenase Total Creatine Kinase CK-MB (CK-2) C-Reactive Protein Total Protein Albumin Troponin T HDL Cholesterol Urine WBC (Auto) Urine Creatinine Urine Total Protein Coronavirus (PCR) Crossmatch 06/01/20 06/01/20 06/02/20 12:28 17:29 00:08 WBC RBC Hgb Hct MCHC RDW Lymph % (Auto) [place] % (Auto) Eos % (Auto) Lymph # [place] # Seg Neutrophils % Seg Neuts % (Manual) Lymphocytes % (Manual) Seg Neutrophils # Seg Neutrophils # Man Lymphocytes # (Manual) Eosinophils % (Manual) Monocytes # (Manual) Eosinophils # (Manual) D-Dimer Heparin Anti-Xa Level ABG pH POC ABG pCO2 POC ABG pO2 ABG pO2 ABG HCO3 ABG O2 Saturation ABG Base Excess ABG Hemoglobin ABG Oxyhemoglobin VBG pH Oxyhemoglobin Sodium Potassium Chloride Carbon Dioxide BUN Creatinine Glucose POC Glucose 199 H 209 H 162 H Lactic Acid Calcium Ferritin AST Alkaline Phosphatase Lactate Dehydrogenase Total Creatine Kinase CK-MB (CK-2) C-Reactive Protein Total Protein Albumin Troponin T HDL Cholesterol Urine WBC (Auto) Urine Creatinine Urine Total Protein Coronavirus (PCR) Crossmatch 06/02/20 06/02/20 06/02/20 04:20 04:20 04:44 WBC RBC Hgb 10.0 L Hct MCHC RDW Lymph % (Auto) [place] % (Auto) Eos % (Auto) Lymph # [place] # Seg Neutrophils % Seg Neuts % (Manual) Lymphocytes % (Manual) Seg Neutrophils # Seg Neutrophils # Man Lymphocytes # (Manual) Eosinophils % (Manual) Monocytes # (Manual) Eosinophils # (Manual) D-Dimer Heparin Anti-Xa Level 0.10 L ABG pH POC ABG pCO2 POC ABG pO2 ABG pO2 150.6 H ABG HCO3 ABG O2 Saturation ABG Base Excess -4.1 L ABG Hemoglobin 11.8 L ABG Oxyhemoglobin VBG pH Oxyhemoglobin Sodium Potassium Chloride Carbon Dioxide BUN Creatinine Glucose POC Glucose Lactic Acid Calcium Ferritin AST Alkaline Phosphatase Lactate Dehydrogenase Total Creatine Kinase CK-MB (CK-2) C-Reactive Protein Total Protein Albumin Troponin T HDL Cholesterol Urine WBC (Auto) Urine Creatinine Urine Total Protein Coronavirus (PCR) Crossmatch 08/06/02/20 06/02/20 05:53 12:04 13:49 WBC RBC Hgb Hct MCHC RDW Lymph % (Auto) [place] % (Auto) Eos % (Auto) Lymph # [place] # Seg Neutrophils % Seg Neuts % (Manual) Lymphocytes % (Manual) Seg Neutrophils # Seg Neutrophils # Man Lymphocytes # (Manual) Eosinophils % (Manual) Monocytes # (Manual) Eosinophils # (Manual) D-Dimer Heparin Anti-Xa Level 0.28 L ABG pH POC ABG pCO2 POC ABG pO2 ABG pO2 ABG HCO3 ABG O2 Saturation ABG Base Excess ABG Hemoglobin ABG Oxyhemoglobin VBG pH Oxyhemoglobin Sodium Potassium Chloride Carbon Dioxide BUN Creatinine Glucose POC Glucose 149 H 220 H Lactic Acid Calcium Ferritin AST Alkaline Phosphatase Lactate Dehydrogenase Total Creatine Kinase CK-MB (CK-2) C-Reactive Protein Total Protein Albumin Troponin T HDL Cholesterol Urine WBC (Auto) Urine Creatinine Urine Total Protein Coronavirus (PCR) Crossmatch 06/02/20 06/02/20 06/03/20 13:49 18:31 00:42 WBC RBC Hgb Hct MCHC RDW Lymph % (Auto) [place] % (Auto) Eos % (Auto) Lymph # [place] # Seg Neutrophils % Seg Neuts % (Manual) Lymphocytes % (Manual) Seg Neutrophils # Seg Neutrophils # Man Lymphocytes # (Manual) Eosinophils % (Manual) Monocytes # (Manual) Eosinophils # (Manual) D-Dimer 769.68 H Heparin Anti-Xa Level ABG pH POC ABG pCO2 POC ABG pO2 ABG pO2 ABG HCO3 ABG O2 Saturation ABG Base Excess ABG Hemoglobin ABG Oxyhemoglobin VBG pH Oxyhemoglobin Sodium Potassium Chloride Carbon Dioxide BUN Creatinine Glucose POC Glucose 225 H 212 H Lactic Acid Calcium Ferritin AST Alkaline Phosphatase Lactate Dehydrogenase Total Creatine Kinase CK-MB (CK-2) C-Reactive Protein Total Protein Albumin Troponin T HDL Cholesterol Urine WBC (Auto) Urine Creatinine Urine Total Protein Coronavirus (PCR) Crossmatch 06/03/20 06/03/20 06/03/20 05:16 05:16 05:25 WBC 11.4 H RBC Hgb Hct MCHC RDW 16.4 H Lymph % (Auto) [place] % (Auto) Eos % (Auto) Lymph # [place] # Seg Neutrophils % Seg Neuts % (Manual) Lymphocytes % (Manual) Seg Neutrophils # Seg Neutrophils # Man Lymphocytes # (Manual) Eosinophils % (Manual) Monocytes # (Manual) Eosinophils # (Manual) D-Dimer Heparin Anti-Xa Level ABG pH POC ABG pCO2 POC ABG pO2 ABG pO2 160.9 H ABG HCO3 19.4 L ABG O2 Saturation ABG Base Excess -4.9 L ABG Hemoglobin 7.0 L ABG Oxyhemoglobin VBG pH Oxyhemoglobin Sodium Potassium Chloride Carbon Dioxide 18 L BUN 65 H Creatinine 2.0 H Glucose 175 H POC Glucose Lactic Acid Calcium 8.0 L Ferritin AST Alkaline Phosphatase Lactate Dehydrogenase Total Creatine Kinase CK-MB (CK-2) C-Reactive Protein Total Protein 5.5 L Albumin 2.2 L Troponin T HDL Cholesterol Urine WBC (Auto) Urine Creatinine Urine Total Protein Coronavirus (PCR) Crossmatch 06/03/20 06/03/20 06/03/20 06:07 11:58 18:24 WBC RBC Hgb Hct MCHC RDW Lymph % (Auto) [place] % (Auto) Eos % (Auto) Lymph # [place] # Seg Neutrophils % Seg Neuts % (Manual) Lymphocytes % (Manual) Seg Neutrophils # Seg Neutrophils # Man Lymphocytes # (Manual) Eosinophils % (Manual) Monocytes # (Manual) Eosinophils # (Manual) D-Dimer Heparin Anti-Xa Level ABG pH POC ABG pCO2 POC ABG pO2 ABG pO2 ABG HCO3 ABG O2 Saturation ABG Base Excess ABG Hemoglobin ABG Oxyhemoglobin VBG pH Oxyhemoglobin Sodium Potassium Chloride Carbon Dioxide BUN Creatinine Glucose POC Glucose 177 H 163 H 211 H Lactic Acid Calcium Ferritin AST Alkaline Phosphatase Lactate Dehydrogenase Total Creatine Kinase CK-MB (CK-2) C-Reactive Protein Total Protein Albumin Troponin T HDL Cholesterol Urine WBC (Auto) Urine Creatinine Urine Total Protein Coronavirus (PCR) Crossmatch 06/03/20 06/03/20 06/04/20 21:50 Unknown 00:26 WBC RBC Hgb Hct MCHC RDW Lymph % (Auto) [place] % (Auto) Eos % (Auto) Lymph # [place] # Seg Neutrophils % Seg Neuts % (Manual) Lymphocytes % (Manual) Seg Neutrophils # Seg Neutrophils # Man Lymphocytes # (Manual) Eosinophils % (Manual) Monocytes # (Manual) Eosinophils # (Manual) D-Dimer Heparin Anti-Xa Level ABG pH POC ABG pCO2 POC ABG pO2 ABG pO2 ABG HCO3 ABG O2 Saturation ABG Base Excess ABG Hemoglobin ABG Oxyhemoglobin VBG pH Oxyhemoglobin Sodium 135 L Potassium Chloride Carbon Dioxide 18 L BUN Creatinine Glucose POC Glucose 241 H Lactic Acid Calcium Ferritin AST Alkaline Phosphatase Lactate Dehydrogenase Total Creatine Kinase CK-MB (CK-2) C-Reactive Protein Total Protein Albumin Troponin T HDL Cholesterol Urine WBC (Auto) 11.0 H Urine Creatinine Urine Total Protein Coronavirus (PCR) Crossmatch 06/04/20 06/04/20 06/04/20 03:35 04:19 04:19 WBC RBC 3.15 L Hgb 8.9 L Hct 26.8 L D MCHC RDW 15.9 H Lymph % (Auto) 6.0 L [place] % (Auto) Eos % (Auto) Lymph # 0.6 L [place] # Seg Neutrophils % 86.6 H Seg Neuts % (Manual) Lymphocytes % (Manual) Seg Neutrophils # 9.1 H Seg Neutrophils # Man Lymphocytes # (Manual) Eosinophils % (Manual) Monocytes # (Manual) Eosinophils # (Manual) D-Dimer Heparin Anti-Xa Level ABG pH 7.331 L POC ABG pCO2 POC ABG pO2 ABG pO2 ABG HCO3 ABG O2 Saturation ABG Base Excess -4.7 L ABG Hemoglobin 11.0 L ABG Oxyhemoglobin VBG pH Oxyhemoglobin 93.9 L Sodium 136 L Potassium Chloride Carbon Dioxide 20 L BUN 73 H Creatinine 2.0 H Glucose 192 H POC Glucose Lactic Acid Calcium 8.0 L Ferritin AST Alkaline Phosphatase Lactate Dehydrogenase 271 H Total Creatine Kinase CK-MB (CK-2) C-Reactive Protein 2.20 H Total Protein 5.0 L Albumin 2.0 L Troponin T HDL Cholesterol Urine WBC (Auto) Urine Creatinine Urine Total Protein Coronavirus (PCR) Crossmatch 06/04/20 06/04/20 06/04/20 04:19 05:51 11:48 WBC RBC Hgb Hct MCHC RDW Lymph % (Auto) [place] % (Auto) Eos % (Auto) Lymph # [place] # Seg Neutrophils % Seg Neuts % (Manual) Lymphocytes % (Manual) Seg Neutrophils # Seg Neutrophils # Man Lymphocytes # (Manual) Eosinophils % (Manual) Monocytes # (Manual) Eosinophils # (Manual) D-Dimer 414.52 H Heparin Anti-Xa Level ABG pH POC ABG pCO2 POC ABG pO2 ABG pO2 ABG HCO3 ABG O2 Saturation ABG Base Excess ABG Hemoglobin ABG Oxyhemoglobin VBG pH Oxyhemoglobin Sodium Potassium Chloride Carbon Dioxide BUN Creatinine Glucose POC Glucose 179 H 213 H Lactic Acid Calcium Ferritin AST Alkaline Phosphatase Lactate Dehydrogenase Total Creatine Kinase CK-MB (CK-2) C-Reactive Protein Total Protein Albumin Troponin T HDL Cholesterol Urine WBC (Auto) Urine Creatinine Urine Total Protein Coronavirus (PCR) Crossmatch 06/04/20 06/05/20 06/05/20 18:25 00:16 05:00 WBC RBC Hgb Hct MCHC RDW Lymph % (Auto) [place] % (Auto) Eos % (Auto) Lymph # [place] # Seg Neutrophils % Seg Neuts % (Manual) Lymphocytes % (Manual) Seg Neutrophils # Seg Neutrophils # Man Lymphocytes # (Manual) Eosinophils % (Manual) Monocytes # (Manual) Eosinophils # (Manual) D-Dimer Heparin Anti-Xa Level ABG pH 7.286 L POC ABG pCO2 POC ABG pO2 ABG pO2 96.2 H ABG HCO3 ABG O2 Saturation ABG Base Excess -6.3 L ABG Hemoglobin 8.8 L ABG Oxyhemoglobin VBG pH Oxyhemoglobin 94.8 L Sodium Potassium Chloride Carbon Dioxide BUN Creatinine Glucose POC Glucose 238 H 183 H Lactic Acid Calcium Ferritin AST Alkaline Phosphatase Lactate Dehydrogenase Total Creatine Kinase CK-MB (CK-2) C-Reactive Protein Total Protein Albumin Troponin T HDL Cholesterol Urine WBC (Auto) Urine Creatinine Urine Total Protein Coronavirus (PCR) Crossmatch 06/05/20 06/05/20 06/05/20 05:39 07:25 07:25 WBC RBC 2.97 L Hgb 8.7 L Hct 25.7 L MCHC RDW 16.0 H Lymph % (Auto) 8.8 L [place] % (Auto) 13.3 H Eos % (Auto) Lymph # 0.8 L [place] # 1.3 H Seg Neutrophils % 77.3 H Seg Neuts % (Manual) Lymphocytes % (Manual) Seg Neutrophils # Seg Neutrophils # Man Lymphocytes # (Manual) Eosinophils % (Manual) Monocytes # (Manual) Eosinophils # (Manual) D-Dimer Heparin Anti-Xa Level ABG pH POC ABG pCO2 POC ABG pO2 ABG pO2 ABG HCO3 ABG O2 Saturation ABG Base Excess ABG Hemoglobin ABG Oxyhemoglobin VBG pH Oxyhemoglobin Sodium 133 L Potassium Chloride Carbon Dioxide 17 L BUN 89 H Creatinine 2.8 H Glucose 176 H POC Glucose 149 H Lactic Acid Calcium 7.7 L Ferritin AST Alkaline Phosphatase Lactate Dehydrogenase Total Creatine Kinase CK-MB (CK-2) C-Reactive Protein Total Protein 4.2 L Albumin 1.9 L Troponin T HDL Cholesterol Urine WBC (Auto) Urine Creatinine Urine Total Protein Coronavirus (PCR) Crossmatch 06/05/20 06/05/20 06/05/20 07:25 12:05 15:41 WBC RBC Hgb Hct MCHC RDW Lymph % (Auto) [place] % (Auto) Eos % (Auto) Lymph # [place] # Seg Neutrophils % Seg Neuts % (Manual) Lymphocytes % (Manual) Seg Neutrophils # Seg Neutrophils # Man Lymphocytes # (Manual) Eosinophils % (Manual) Monocytes # (Manual) Eosinophils # (Manual) D-Dimer Heparin Anti-Xa Level 0.76 H 0.81 H ABG pH POC ABG pCO2 POC ABG pO2 ABG pO2 ABG HCO3 ABG O2 Saturation ABG Base Excess ABG Hemoglobin ABG Oxyhemoglobin VBG pH Oxyhemoglobin Sodium Potassium Chloride Carbon Dioxide BUN Creatinine Glucose POC Glucose 198 H Lactic Acid Calcium Ferritin AST Alkaline Phosphatase Lactate Dehydrogenase Total Creatine Kinase CK-MB (CK-2) C-Reactive Protein Total Protein Albumin Troponin T HDL Cholesterol Urine WBC (Auto) Urine Creatinine Urine Total Protein Coronavirus (PCR) Crossmatch 06/05/20 06/05/20 06/06/20 18:08 23:25 04:00 WBC RBC Hgb Hct MCHC RDW Lymph % (Auto) [place] % (Auto) Eos % (Auto) Lymph # [place] # Seg Neutrophils % Seg Neuts % (Manual) Lymphocytes % (Manual) Seg Neutrophils # Seg Neutrophils # Man Lymphocytes # (Manual) Eosinophils % (Manual) Monocytes # (Manual) Eosinophils # (Manual) D-Dimer Heparin Anti-Xa Level ABG pH POC ABG pCO2 POC ABG pO2 ABG pO2 ABG HCO3 ABG O2 Saturation ABG Base Excess ABG Hemoglobin ABG Oxyhemoglobin VBG pH Oxyhemoglobin Sodium Potassium Chloride Carbon Dioxide BUN Creatinine Glucose POC Glucose 223 H 169 H Lactic Acid Calcium Ferritin AST Alkaline Phosphatase Lactate Dehydrogenase Total Creatine Kinase CK-MB (CK-2) C-Reactive Protein Total Protein Albumin Troponin T HDL Cholesterol Urine WBC (Auto) 15.0 H Urine Creatinine Urine Total Protein Coronavirus (PCR) Crossmatch 06/06/20 06/06/20 06/06/20 04:00 05:33 05:38 WBC RBC 2.97 L Hgb 8.7 L Hct 26.8 L MCHC RDW 16.8 H Lymph % (Auto) [place] % (Auto) Eos % (Auto) Lymph # [place] # Seg Neutrophils % Seg Neuts % (Manual) Lymphocytes % (Manual) Seg Neutrophils # Seg Neutrophils # Man Lymphocytes # (Manual) Eosinophils % (Manual) Monocytes # (Manual) Eosinophils # (Manual) D-Dimer Heparin Anti-Xa Level ABG pH POC ABG pCO2 POC ABG pO2 ABG pO2 ABG HCO3 ABG O2 Saturation ABG Base Excess ABG Hemoglobin ABG Oxyhemoglobin VBG pH Oxyhemoglobin Sodium Potassium Chloride Carbon Dioxide BUN Creatinine Glucose POC Glucose 186 H Lactic Acid Calcium Ferritin AST Alkaline Phosphatase Lactate Dehydrogenase Total Creatine Kinase CK-MB (CK-2) C-Reactive Protein Total Protein Albumin Troponin T HDL Cholesterol Urine WBC (Auto) Urine Creatinine 82.2 H Urine Total Protein 196 H Coronavirus (PCR) Crossmatch 06/06/20 06/06/20 06/06/20 05:38 12:25 17:03 WBC RBC Hgb Hct MCHC RDW Lymph % (Auto) [place] % (Auto) Eos % (Auto) Lymph # [place] # Seg Neutrophils % Seg Neuts % (Manual) Lymphocytes % (Manual) Seg Neutrophils # Seg Neutrophils # Man Lymphocytes # (Manual) Eosinophils % (Manual) Monocytes # (Manual) Eosinophils # (Manual) D-Dimer Heparin Anti-Xa Level ABG pH POC ABG pCO2 POC ABG pO2 ABG pO2 ABG HCO3 ABG O2 Saturation ABG Base Excess ABG Hemoglobin ABG Oxyhemoglobin VBG pH Oxyhemoglobin Sodium 134 L Potassium 5.2 H Chloride Carbon Dioxide 18 L BUN 97 H Creatinine 2.5 H Glucose 193 H POC Glucose 239 H 252 H Lactic Acid Calcium 7.5 L Ferritin AST Alkaline Phosphatase Lactate Dehydrogenase Total Creatine Kinase CK-MB (CK-2) C-Reactive Protein Total Protein 4.1 L Albumin 1.9 L Troponin T HDL Cholesterol Urine WBC (Auto) Urine Creatinine Urine Total Protein Coronavirus (PCR) Crossmatch 06/07/20 06/07/20 06/07/20 00:16 01:49 04:00 WBC RBC 2.91 L Hgb 8.4 L Hct 25.0 L MCHC RDW 16.1 H Lymph % (Auto) 5.7 L [place] % (Auto) 10.5 H Eos % (Auto) Lymph # 0.6 L [place] # 1.1 H Seg Neutrophils % 83.6 H Seg Neuts % (Manual) Lymphocytes % (Manual) Seg Neutrophils # 9.1 H Seg Neutrophils # Man Lymphocytes # (Manual) Eosinophils % (Manual) Monocytes # (Manual) Eosinophils # (Manual) D-Dimer Heparin Anti-Xa Level 0.26 L ABG pH POC ABG pCO2 POC ABG pO2 ABG pO2 ABG HCO3 ABG O2 Saturation ABG Base Excess ABG Hemoglobin ABG Oxyhemoglobin VBG pH Oxyhemoglobin Sodium Potassium Chloride Carbon Dioxide BUN Creatinine Glucose POC Glucose 173 H Lactic Acid Calcium Ferritin AST Alkaline Phosphatase Lactate Dehydrogenase Total Creatine Kinase CK-MB (CK-2) C-Reactive Protein Total Protein Albumin Troponin T HDL Cholesterol Urine WBC (Auto) Urine Creatinine Urine Total Protein Coronavirus (PCR) Crossmatch 06/07/20 06/07/20 06/07/20 04:00 04:54 05:51 WBC RBC Hgb Hct MCHC RDW Lymph % (Auto) [place] % (Auto) Eos % (Auto) Lymph # [place] # Seg Neutrophils % Seg Neuts % (Manual) Lymphocytes % (Manual) Seg Neutrophils # Seg Neutrophils # Man Lymphocytes # (Manual) Eosinophils % (Manual) Monocytes # (Manual) Eosinophils # (Manual) D-Dimer Heparin Anti-Xa Level ABG pH 7.317 L POC ABG pCO2 POC ABG pO2 ABG pO2 71.4 L ABG HCO3 ABG O2 Saturation 94.3 L ABG Base Excess -4.8 L ABG Hemoglobin 7.1 L ABG Oxyhemoglobin VBG pH Oxyhemoglobin 92.2 L Sodium 133 L Potassium Chloride Carbon Dioxide 18 L BUN 100 H Creatinine 2.5 H Glucose 158 H POC Glucose 168 H Lactic Acid Calcium 7.6 L Ferritin AST Alkaline Phosphatase Lactate Dehydrogenase Total Creatine Kinase CK-MB (CK-2) C-Reactive Protein Total Protein 4.7 L Albumin 2.0 L Troponin T HDL Cholesterol Urine WBC (Auto) Urine Creatinine Urine Total Protein Coronavirus (PCR) Crossmatch 06/07/20 06/07/20 06/07/20 12:03 17:17 20:10 WBC RBC Hgb Hct MCHC RDW Lymph % (Auto) [place] % (Auto) Eos % (Auto) Lymph # [place] # Seg Neutrophils % Seg Neuts % (Manual) Lymphocytes % (Manual) Seg Neutrophils # Seg Neutrophils # Man Lymphocytes # (Manual) Eosinophils % (Manual) Monocytes # (Manual) Eosinophils # (Manual) D-Dimer Heparin Anti-Xa Level 0.17 L ABG pH POC ABG pCO2 POC ABG pO2 ABG pO2 ABG HCO3 ABG O2 Saturation ABG Base Excess ABG Hemoglobin ABG Oxyhemoglobin VBG pH Oxyhemoglobin Sodium Potassium Chloride Carbon Dioxide BUN Creatinine Glucose POC Glucose 276 H 281 H Lactic Acid Calcium Ferritin AST Alkaline Phosphatase Lactate Dehydrogenase Total Creatine Kinase CK-MB (CK-2) C-Reactive Protein Total Protein Albumin Troponin T HDL Cholesterol Urine WBC (Auto) Urine Creatinine Urine Total Protein Coronavirus (PCR) Crossmatch 06/08/20 06/08/20 06/08/20 00:02 04:47 04:47 WBC 16.4 H RBC 3.07 L Hgb 8.6 L Hct 26.5 L MCHC RDW 16.3 H Lymph % (Auto) [place] % (Auto) Eos % (Auto) Lymph # [place] # Seg Neutrophils % Seg Neuts % (Manual) 90.0 H Lymphocytes % (Manual) 3.0 L Seg Neutrophils # Seg Neutrophils # Man 14.8 H Lymphocytes # (Manual) 0.5 L Eosinophils % (Manual) Monocytes # (Manual) 1.1 H Eosinophils # (Manual) D-Dimer Heparin Anti-Xa Level ABG pH POC ABG pCO2 POC ABG pO2 ABG pO2 ABG HCO3 ABG O2 Saturation ABG Base Excess ABG Hemoglobin ABG Oxyhemoglobin VBG pH Oxyhemoglobin Sodium 129 L Potassium Chloride 95.6 L Carbon Dioxide 17 L BUN 106 H Creatinine 2.5 H Glucose 213 H POC Glucose 242 H Lactic Acid Calcium 7.6 L Ferritin AST Alkaline Phosphatase Lactate Dehydrogenase Total Creatine Kinase CK-MB (CK-2) C-Reactive Protein Total Protein 5.0 L Albumin 2.1 L Troponin T HDL Cholesterol Urine WBC (Auto) Urine Creatinine Urine Total Protein Coronavirus (PCR) Crossmatch 06/08/20 06/08/20 06/08/20 05:40 11:55 17:54 WBC RBC Hgb Hct MCHC RDW Lymph % (Auto) [place] % (Auto) Eos % (Auto) Lymph # [place] # Seg Neutrophils % Seg Neuts % (Manual) Lymphocytes % (Manual) Seg Neutrophils # Seg Neutrophils # Man Lymphocytes # (Manual) Eosinophils % (Manual) Monocytes # (Manual) Eosinophils # (Manual) D-Dimer Heparin Anti-Xa Level ABG pH POC ABG pCO2 POC ABG pO2 ABG pO2 ABG HCO3 ABG O2 Saturation ABG Base Excess ABG Hemoglobin ABG Oxyhemoglobin VBG pH Oxyhemoglobin Sodium Potassium Chloride Carbon Dioxide BUN Creatinine Glucose POC Glucose 221 H 218 H 163 H Lactic Acid Calcium Ferritin AST Alkaline Phosphatase Lactate Dehydrogenase Total Creatine Kinase CK-MB (CK-2) C-Reactive Protein Total Protein Albumin Troponin T HDL Cholesterol Urine WBC (Auto) Urine Creatinine Urine Total Protein Coronavirus (PCR) Crossmatch 06/08/20 06/09/20 06/09/20 22:01 00:09 05:16 WBC 19.0 H RBC 3.35 L Hgb 9.2 L Hct 28.5 L MCHC RDW 16.3 H Lymph % (Auto) [place] % (Auto) Eos % (Auto) Lymph # [place] # Seg Neutrophils % Seg Neuts % (Manual) 85.0 H Lymphocytes % (Manual) 7.0 L Seg Neutrophils # Seg Neutrophils # Man 16.2 H Lymphocytes # (Manual) Eosinophils % (Manual) Monocytes # (Manual) 1.3 H Eosinophils # (Manual) D-Dimer Heparin Anti-Xa Level ABG pH POC ABG pCO2 POC ABG pO2 ABG pO2 ABG HCO3 ABG O2 Saturation ABG Base Excess ABG Hemoglobin ABG Oxyhemoglobin VBG pH Oxyhemoglobin Sodium Potassium Chloride Carbon Dioxide BUN Creatinine Glucose POC Glucose 182 H 150 H Lactic Acid Calcium Ferritin AST Alkaline Phosphatase Lactate Dehydrogenase Total Creatine Kinase CK-MB (CK-2) C-Reactive Protein Total Protein Albumin Troponin T HDL Cholesterol Urine WBC (Auto) Urine Creatinine Urine Total Protein Coronavirus (PCR) Crossmatch 06/09/20 06/09/20 06/09/20 05:16 05:24 11:29 WBC RBC Hgb Hct MCHC RDW Lymph % (Auto) [place] % (Auto) Eos % (Auto) Lymph # [place] # Seg Neutrophils % Seg Neuts % (Manual) Lymphocytes % (Manual) Seg Neutrophils # Seg Neutrophils # Man Lymphocytes # (Manual) Eosinophils % (Manual) Monocytes # (Manual) Eosinophils # (Manual) D-Dimer Heparin Anti-Xa Level ABG pH POC ABG pCO2 POC ABG pO2 ABG pO2 ABG HCO3 ABG O2 Saturation ABG Base Excess ABG Hemoglobin ABG Oxyhemoglobin VBG pH Oxyhemoglobin Sodium 133 L Potassium Chloride Carbon Dioxide 19 L BUN 109 H Creatinine 2.1 H Glucose 133 H POC Glucose 128 H 119 H Lactic Acid Calcium 7.7 L Ferritin AST Alkaline Phosphatase < 5 L Lactate Dehydrogenase Total Creatine Kinase CK-MB (CK-2) C-Reactive Protein Total Protein 4.6 L Albumin < 0.2 L Troponin T HDL Cholesterol Urine WBC (Auto) Urine Creatinine Urine Total Protein Coronavirus (PCR) Crossmatch 06/09/20 06/10/20 06/10/20 17:32 00:00 05:49 WBC RBC Hgb Hct MCHC RDW Lymph % (Auto) [place] % (Auto) Eos % (Auto) Lymph # [place] # Seg Neutrophils % Seg Neuts % (Manual) Lymphocytes % (Manual) Seg Neutrophils # Seg Neutrophils # Man Lymphocytes # (Manual) Eosinophils % (Manual) Monocytes # (Manual) Eosinophils # (Manual) D-Dimer Heparin Anti-Xa Level 0.19 L ABG pH POC ABG pCO2 POC ABG pO2 ABG pO2 ABG HCO3 ABG O2 Saturation ABG Base Excess ABG Hemoglobin ABG Oxyhemoglobin VBG pH Oxyhemoglobin Sodium Potassium Chloride Carbon Dioxide BUN Creatinine Glucose POC Glucose 106 H 117 H Lactic Acid Calcium Ferritin AST Alkaline Phosphatase Lactate Dehydrogenase Total Creatine Kinase CK-MB (CK-2) C-Reactive Protein Total Protein Albumin Troponin T HDL Cholesterol Urine WBC (Auto) Urine Creatinine Urine Total Protein Coronavirus (PCR) Crossmatch 06/10/20 06/10/20 06/10/20 05:54 07:40 11:40 WBC RBC Hgb Hct MCHC RDW Lymph % (Auto) [place] % (Auto) Eos % (Auto) Lymph # [place] # Seg Neutrophils % Seg Neuts % (Manual) Lymphocytes % (Manual) Seg Neutrophils # Seg Neutrophils # Man Lymphocytes # (Manual) Eosinophils % (Manual) Monocytes # (Manual) Eosinophils # (Manual) D-Dimer Heparin Anti-Xa Level ABG pH POC ABG pCO2 POC ABG pO2 ABG pO2 ABG HCO3 ABG O2 Saturation ABG Base Excess ABG Hemoglobin ABG Oxyhemoglobin VBG pH Oxyhemoglobin Sodium 146 H D Potassium Chloride Carbon Dioxide 20 L BUN 99 H Creatinine 1.9 H Glucose 121 H POC Glucose 127 H 138 H Lactic Acid Calcium 8.2 L Ferritin AST Alkaline Phosphatase Lactate Dehydrogenase Total Creatine Kinase CK-MB (CK-2) C-Reactive Protein Total Protein Albumin Troponin T HDL Cholesterol Urine WBC (Auto) Urine Creatinine Urine Total Protein Coronavirus (PCR) Crossmatch 06/10/20 06/10/20 06/10/20 14:44 17:31 23:22 WBC RBC Hgb Hct MCHC RDW Lymph % (Auto) [place] % (Auto) Eos % (Auto) Lymph # [place] # Seg Neutrophils % Seg Neuts % (Manual) Lymphocytes % (Manual) Seg Neutrophils # Seg Neutrophils # Man Lymphocytes # (Manual) Eosinophils % (Manual) Monocytes # (Manual) Eosinophils # (Manual) D-Dimer Heparin Anti-Xa Level 0.17 L ABG pH POC ABG pCO2 POC ABG pO2 ABG pO2 ABG HCO3 ABG O2 Saturation ABG Base Excess ABG Hemoglobin ABG Oxyhemoglobin VBG pH Oxyhemoglobin Sodium Potassium Chloride Carbon Dioxide BUN Creatinine Glucose POC Glucose 128 H 114 H Lactic Acid Calcium Ferritin AST Alkaline Phosphatase Lactate Dehydrogenase Total Creatine Kinase CK-MB (CK-2) C-Reactive Protein Total Protein Albumin Troponin T HDL Cholesterol Urine WBC (Auto) Urine Creatinine Urine Total Protein Coronavirus (PCR) Crossmatch 06/11/20 06/11/20 06/11/20 00:22 03:45 03:45 WBC 14.6 H RBC 2.77 L Hgb 7.9 L Hct 24.3 L MCHC RDW 16.8 H Lymph % (Auto) 6.6 L [place] % (Auto) 8.5 H Eos % (Auto) Lymph # 1.0 L [place] # 1.2 H Seg Neutrophils % 82.9 H Seg Neuts % (Manual) Lymphocytes % (Manual) Seg Neutrophils # 12.1 H Seg Neutrophils # Man Lymphocytes # (Manual) Eosinophils % (Manual) Monocytes # (Manual) Eosinophils # (Manual) D-Dimer Heparin Anti-Xa Level 0.24 L ABG pH POC ABG pCO2 POC ABG pO2 ABG pO2 ABG HCO3 ABG O2 Saturation ABG Base Excess ABG Hemoglobin ABG Oxyhemoglobin VBG pH Oxyhemoglobin Sodium Potassium Chloride Carbon Dioxide 20 L BUN 88 H Creatinine 1.5 H Glucose 111 H POC Glucose Lactic Acid Calcium 8.2 L Ferritin AST Alkaline Phosphatase Lactate Dehydrogenase Total Creatine Kinase CK-MB (CK-2) C-Reactive Protein Total Protein Albumin Troponin T HDL Cholesterol Urine WBC (Auto) Urine Creatinine Urine Total Protein Coronavirus (PCR) Crossmatch 06/11/20 06/11/20 06/11/20 06:03 10:22 11:11 WBC RBC Hgb Hct MCHC RDW Lymph % (Auto) [place] % (Auto) Eos % (Auto) Lymph # [place] # Seg Neutrophils % Seg Neuts % (Manual) Lymphocytes % (Manual) Seg Neutrophils # Seg Neutrophils # Man Lymphocytes # (Manual) Eosinophils % (Manual) Monocytes # (Manual) Eosinophils # (Manual) D-Dimer Heparin Anti-Xa Level 0.26 L ABG pH POC ABG pCO2 POC ABG pO2 ABG pO2 ABG HCO3 ABG O2 Saturation ABG Base Excess ABG Hemoglobin 9.6 L ABG Oxyhemoglobin VBG pH Oxyhemoglobin Sodium Potassium Chloride Carbon Dioxide BUN Creatinine Glucose POC Glucose 114 H Lactic Acid Calcium Ferritin AST Alkaline Phosphatase Lactate Dehydrogenase Total Creatine Kinase CK-MB (CK-2) C-Reactive Protein Total Protein Albumin Troponin T HDL Cholesterol Urine WBC (Auto) Urine Creatinine Urine Total Protein Coronavirus (PCR) Crossmatch 06/11/20 06/11/20 06/12/20 12:24 17:24 00:21 WBC RBC Hgb Hct MCHC RDW Lymph % (Auto) [place] % (Auto) Eos % (Auto) Lymph # [place] # Seg Neutrophils % Seg Neuts % (Manual) Lymphocytes % (Manual) Seg Neutrophils # Seg Neutrophils # Man Lymphocytes # (Manual) Eosinophils % (Manual) Monocytes # (Manual) Eosinophils # (Manual) D-Dimer Heparin Anti-Xa Level ABG pH POC ABG pCO2 POC ABG pO2 ABG pO2 ABG HCO3 ABG O2 Saturation ABG Base Excess ABG Hemoglobin ABG Oxyhemoglobin VBG pH Oxyhemoglobin Sodium Potassium Chloride Carbon Dioxide BUN Creatinine Glucose POC Glucose 119 H 126 H 117 H Lactic Acid Calcium Ferritin AST Alkaline Phosphatase Lactate Dehydrogenase Total Creatine Kinase CK-MB (CK-2) C-Reactive Protein Total Protein Albumin Troponin T HDL Cholesterol Urine WBC (Auto) Urine Creatinine Urine Total Protein Coronavirus (PCR) Crossmatch 06/12/20 06/12/20 06/12/20 02:46 02:46 05:46 WBC 13.2 H RBC 2.83 L Hgb 8.3 L Hct 24.3 L MCHC RDW 16.6 H Lymph % (Auto) 6.2 L [place] % (Auto) 9.5 H Eos % (Auto) Lymph # 0.8 L [place] # 1.3 H Seg Neutrophils % 81.9 H Seg Neuts % (Manual) Lymphocytes % (Manual) Seg Neutrophils # 10.9 H Seg Neutrophils # Man Lymphocytes # (Manual) Eosinophils % (Manual) Monocytes # (Manual) Eosinophils # (Manual) D-Dimer Heparin Anti-Xa Level ABG pH POC ABG pCO2 POC ABG pO2 ABG pO2 ABG HCO3 ABG O2 Saturation ABG Base Excess ABG Hemoglobin ABG Oxyhemoglobin VBG pH Oxyhemoglobin Sodium Potassium 3.5 L Chloride Carbon Dioxide BUN 77 H Creatinine 1.3 H Glucose POC Glucose 132 H Lactic Acid Calcium 8.3 L Ferritin AST Alkaline Phosphatase Lactate Dehydrogenase Total Creatine Kinase CK-MB (CK-2) C-Reactive Protein Total Protein Albumin Troponin T HDL Cholesterol Urine WBC (Auto) Urine Creatinine Urine Total Protein Coronavirus (PCR) Crossmatch 06/12/20 06/12/20 06/12/20 09:20 12:16 17:48 WBC RBC Hgb Hct MCHC RDW Lymph % (Auto) [place] % (Auto) Eos % (Auto) Lymph # [place] # Seg Neutrophils % Seg Neuts % (Manual) Lymphocytes % (Manual) Seg Neutrophils # Seg Neutrophils # Man Lymphocytes # (Manual) Eosinophils % (Manual) Monocytes # (Manual) Eosinophils # (Manual) D-Dimer Heparin Anti-Xa Level ABG pH POC ABG pCO2 POC ABG pO2 ABG pO2 91.1 H ABG HCO3 ABG O2 Saturation ABG Base Excess ABG Hemoglobin ABG Oxyhemoglobin VBG pH Oxyhemoglobin 94.8 L Sodium Potassium Chloride Carbon Dioxide BUN Creatinine Glucose POC Glucose 167 H 182 H Lactic Acid Calcium Ferritin AST Alkaline Phosphatase Lactate Dehydrogenase Total Creatine Kinase CK-MB (CK-2) C-Reactive Protein Total Protein Albumin Troponin T HDL Cholesterol Urine WBC (Auto) Urine Creatinine Urine Total Protein Coronavirus (PCR) Crossmatch 06/13/20 06/13/20 06/13/20 00:08 05:37 09:09 WBC RBC Hgb Hct MCHC RDW Lymph % (Auto) [place] % (Auto) Eos % (Auto) Lymph # [place] # Seg Neutrophils % Seg Neuts % (Manual) Lymphocytes % (Manual) Seg Neutrophils # Seg Neutrophils # Man Lymphocytes # (Manual) Eosinophils % (Manual) Monocytes # (Manual) Eosinophils # (Manual) D-Dimer Heparin Anti-Xa Level 0.86 H ABG pH POC ABG pCO2 POC ABG pO2 ABG pO2 ABG HCO3 ABG O2 Saturation ABG Base Excess ABG Hemoglobin ABG Oxyhemoglobin VBG pH Oxyhemoglobin Sodium Potassium Chloride Carbon Dioxide BUN Creatinine Glucose POC Glucose 142 H 119 H Lactic Acid Calcium Ferritin AST Alkaline Phosphatase Lactate Dehydrogenase Total Creatine Kinase CK-MB (CK-2) C-Reactive Protein Total Protein Albumin Troponin T HDL Cholesterol Urine WBC (Auto) Urine Creatinine Urine Total Protein Coronavirus (PCR) Crossmatch 06/13/20 06/13/20 06/13/20 12:28 17:55 21:17 WBC RBC Hgb Hct MCHC RDW Lymph % (Auto) [place] % (Auto) Eos % (Auto) Lymph # [place] # Seg Neutrophils % Seg Neuts % (Manual) Lymphocytes % (Manual) Seg Neutrophils # Seg Neutrophils # Man Lymphocytes # (Manual) Eosinophils % (Manual) Monocytes # (Manual) Eosinophils # (Manual) D-Dimer Heparin Anti-Xa Level ABG pH POC ABG pCO2 POC ABG pO2 ABG pO2 ABG HCO3 ABG O2 Saturation ABG Base Excess ABG Hemoglobin ABG Oxyhemoglobin VBG pH Oxyhemoglobin Sodium Potassium Chloride Carbon Dioxide BUN 61 H Creatinine Glucose 131 H POC Glucose 165 H 174 H Lactic Acid Calcium Ferritin AST Alkaline Phosphatase Lactate Dehydrogenase Total Creatine Kinase CK-MB (CK-2) C-Reactive Protein Total Protein Albumin Troponin T HDL Cholesterol Urine WBC (Auto) Urine Creatinine Urine Total Protein Coronavirus (PCR) Crossmatch 06/13/20 06/13/20 06/14/20 21:17 23:50 05:34 WBC RBC Hgb Hct MCHC RDW Lymph % (Auto) [place] % (Auto) Eos % (Auto) Lymph # [place] # Seg Neutrophils % Seg Neuts % (Manual) Lymphocytes % (Manual) Seg Neutrophils # Seg Neutrophils # Man Lymphocytes # (Manual) Eosinophils % (Manual) Monocytes # (Manual) Eosinophils # (Manual) D-Dimer Heparin Anti-Xa Level 0.72 H ABG pH POC ABG pCO2 POC ABG pO2 ABG pO2 ABG HCO3 ABG O2 Saturation ABG Base Excess ABG Hemoglobin ABG Oxyhemoglobin VBG pH Oxyhemoglobin Sodium 146 H Potassium Chloride 107.6 H Carbon Dioxide BUN 61 H Creatinine 1.3 H Glucose 135 H POC Glucose 146 H Lactic Acid Calcium Ferritin AST Alkaline Phosphatase Lactate Dehydrogenase Total Creatine Kinase CK-MB (CK-2) C-Reactive Protein Total Protein Albumin Troponin T HDL Cholesterol Urine WBC (Auto) Urine Creatinine Urine Total Protein Coronavirus (PCR) Crossmatch 06/14/20 06/14/20 06/14/20 06:11 09:28 11:30 WBC RBC Hgb Hct MCHC RDW Lymph % (Auto) [place] % (Auto) Eos % (Auto) Lymph # [place] # Seg Neutrophils % Seg Neuts % (Manual) Lymphocytes % (Manual) Seg Neutrophils # Seg Neutrophils # Man Lymphocytes # (Manual) Eosinophils % (Manual) Monocytes # (Manual) Eosinophils # (Manual) D-Dimer Heparin Anti-Xa Level 0.90 H ABG pH POC ABG pCO2 POC ABG pO2 ABG pO2 ABG HCO3 ABG O2 Saturation ABG Base Excess ABG Hemoglobin ABG Oxyhemoglobin VBG pH Oxyhemoglobin Sodium Potassium Chloride Carbon Dioxide BUN Creatinine Glucose POC Glucose 141 H 186 H Lactic Acid Calcium Ferritin AST Alkaline Phosphatase Lactate Dehydrogenase Total Creatine Kinase CK-MB (CK-2) C-Reactive Protein Total Protein Albumin Troponin T HDL Cholesterol Urine WBC (Auto) Urine Creatinine Urine Total Protein Coronavirus (PCR) Crossmatch 06/14/20 06/14/20 06/14/20 16:07 18:16 23:51 WBC RBC Hgb Hct MCHC RDW Lymph % (Auto) [place] % (Auto) Eos % (Auto) Lymph # [place] # Seg Neutrophils % Seg Neuts % (Manual) Lymphocytes % (Manual) Seg Neutrophils # Seg Neutrophils # Man Lymphocytes # (Manual) Eosinophils % (Manual) Monocytes # (Manual) Eosinophils # (Manual) D-Dimer Heparin Anti-Xa Level 0.82 H ABG pH POC ABG pCO2 POC ABG pO2 ABG pO2 ABG HCO3 ABG O2 Saturation ABG Base Excess ABG Hemoglobin ABG Oxyhemoglobin VBG pH Oxyhemoglobin Sodium Potassium Chloride Carbon Dioxide BUN Creatinine Glucose POC Glucose 106 H 154 H Lactic Acid Calcium Ferritin AST Alkaline Phosphatase Lactate Dehydrogenase Total Creatine Kinase CK-MB (CK-2) C-Reactive Protein Total Protein Albumin Troponin T HDL Cholesterol Urine WBC (Auto) Urine Creatinine Urine Total Protein Coronavirus (PCR) Crossmatch 06/15/20 06/15/20 06/15/20 04:24 04:24 05:59 WBC RBC 2.75 L Hgb 7.9 L Hct 24.0 L MCHC RDW 16.4 H Lymph % (Auto) 12.9 L [place] % (Auto) 8.7 H Eos % (Auto) 4.6 H Lymph # 1.1 L [place] # Seg Neutrophils % 73.2 H Seg Neuts % (Manual) Lymphocytes % (Manual) Seg Neutrophils # Seg Neutrophils # Man Lymphocytes # (Manual) Eosinophils % (Manual) Monocytes # (Manual) Eosinophils # (Manual) D-Dimer Heparin Anti-Xa Level ABG pH POC ABG pCO2 POC ABG pO2 ABG pO2 ABG HCO3 ABG O2 Saturation ABG Base Excess ABG Hemoglobin ABG Oxyhemoglobin VBG pH Oxyhemoglobin Sodium Potassium 3.4 L Chloride Carbon Dioxide BUN 55 H Creatinine 1.3 H Glucose 142 H POC Glucose 131 H Lactic Acid Calcium Ferritin AST Alkaline Phosphatase Lactate Dehydrogenase Total Creatine Kinase CK-MB (CK-2) C-Reactive Protein Total Protein Albumin Troponin T HDL Cholesterol Urine WBC (Auto) Urine Creatinine Urine Total Protein Coronavirus (PCR) Crossmatch 06/15/20 06/15/20 06/16/20 12:33 17:07 00:22 WBC RBC Hgb Hct MCHC RDW Lymph % (Auto) [place] % (Auto) Eos % (Auto) Lymph # [place] # Seg Neutrophils % Seg Neuts % (Manual) Lymphocytes % (Manual) Seg Neutrophils # Seg Neutrophils # Man Lymphocytes # (Manual) Eosinophils % (Manual) Monocytes # (Manual) Eosinophils # (Manual) D-Dimer Heparin Anti-Xa Level 0.21 L ABG pH POC ABG pCO2 POC ABG pO2 ABG pO2 ABG HCO3 ABG O2 Saturation ABG Base Excess ABG Hemoglobin ABG Oxyhemoglobin VBG pH Oxyhemoglobin Sodium Potassium Chloride Carbon Dioxide BUN Creatinine Glucose POC Glucose 180 H 185 H Lactic Acid Calcium Ferritin AST Alkaline Phosphatase Lactate Dehydrogenase Total Creatine Kinase CK-MB (CK-2) C-Reactive Protein Total Protein Albumin Troponin T HDL Cholesterol Urine WBC (Auto) Urine Creatinine Urine Total Protein Coronavirus (PCR) Crossmatch 06/16/20 06/16/20 06/16/20 01:45 08:06 09:15 WBC RBC Hgb Hct MCHC RDW Lymph % (Auto) [place] % (Auto) Eos % (Auto) Lymph # [place] # Seg Neutrophils % Seg Neuts % (Manual) Lymphocytes % (Manual) Seg Neutrophils # Seg Neutrophils # Man Lymphocytes # (Manual) Eosinophils % (Manual) Monocytes # (Manual) Eosinophils # (Manual) D-Dimer Heparin Anti-Xa Level ABG pH POC ABG pCO2 POC ABG pO2 ABG pO2 ABG HCO3 ABG O2 Saturation ABG Base Excess ABG Hemoglobin ABG Oxyhemoglobin VBG pH Oxyhemoglobin Sodium Potassium Chloride Carbon Dioxide BUN 49 H Creatinine Glucose 154 H POC Glucose 140 H 171 H Lactic Acid Calcium Ferritin AST Alkaline Phosphatase Lactate Dehydrogenase Total Creatine Kinase CK-MB (CK-2) C-Reactive Protein Total Protein Albumin Troponin T HDL Cholesterol Urine WBC (Auto) Urine Creatinine Urine Total Protein Coronavirus (PCR) Crossmatch 06/16/20 06/16/20 06/16/20 10:46 12:33 17:54 WBC RBC Hgb Hct MCHC RDW Lymph % (Auto) [place] % (Auto) Eos % (Auto) Lymph # [place] # Seg Neutrophils % Seg Neuts % (Manual) Lymphocytes % (Manual) Seg Neutrophils # Seg Neutrophils # Man Lymphocytes # (Manual) Eosinophils % (Manual) Monocytes # (Manual) Eosinophils # (Manual) D-Dimer Heparin Anti-Xa Level 0.12 L ABG pH POC ABG pCO2 POC ABG pO2 ABG pO2 ABG HCO3 ABG O2 Saturation ABG Base Excess ABG Hemoglobin ABG Oxyhemoglobin VBG pH Oxyhemoglobin Sodium Potassium Chloride Carbon Dioxide BUN Creatinine Glucose POC Glucose 166 H 151 H Lactic Acid Calcium Ferritin AST Alkaline Phosphatase Lactate Dehydrogenase Total Creatine Kinase CK-MB (CK-2) C-Reactive Protein Total Protein Albumin Troponin T HDL Cholesterol Urine WBC (Auto) Urine Creatinine Urine Total Protein Coronavirus (PCR) Crossmatch 06/16/20 06/17/20 06/17/20 18:47 00:00 02:19 WBC RBC Hgb Hct MCHC RDW Lymph % (Auto) [place] % (Auto) Eos % (Auto) Lymph # [place] # Seg Neutrophils % Seg Neuts % (Manual) Lymphocytes % (Manual) Seg Neutrophils # Seg Neutrophils # Man Lymphocytes # (Manual) Eosinophils % (Manual) Monocytes # (Manual) Eosinophils # (Manual) D-Dimer Heparin Anti-Xa Level 0.73 H 0.77 H ABG pH POC ABG pCO2 POC ABG pO2 ABG pO2 ABG HCO3 ABG O2 Saturation ABG Base Excess ABG Hemoglobin ABG Oxyhemoglobin VBG pH Oxyhemoglobin Sodium Potassium Chloride Carbon Dioxide BUN Creatinine Glucose POC Glucose 139 H Lactic Acid Calcium Ferritin AST Alkaline Phosphatase Lactate Dehydrogenase Total Creatine Kinase CK-MB (CK-2) C-Reactive Protein Total Protein Albumin Troponin T HDL Cholesterol Urine WBC (Auto) Urine Creatinine Urine Total Protein Coronavirus (PCR) Crossmatch 06/17/20 06/17/20 06/17/20 06:07 11:42 16:43 WBC RBC Hgb Hct MCHC RDW Lymph % (Auto) [place] % (Auto) Eos % (Auto) Lymph # [place] # Seg Neutrophils % Seg Neuts % (Manual) Lymphocytes % (Manual) Seg Neutrophils # Seg Neutrophils # Man Lymphocytes # (Manual) Eosinophils % (Manual) Monocytes # (Manual) Eosinophils # (Manual) D-Dimer Heparin Anti-Xa Level 0.73 H ABG pH POC ABG pCO2 POC ABG pO2 ABG pO2 ABG HCO3 ABG O2 Saturation ABG Base Excess ABG Hemoglobin ABG Oxyhemoglobin VBG pH Oxyhemoglobin Sodium Potassium Chloride Carbon Dioxide BUN Creatinine Glucose POC Glucose 169 H 169 H Lactic Acid Calcium Ferritin AST Alkaline Phosphatase Lactate Dehydrogenase Total Creatine Kinase CK-MB (CK-2) C-Reactive Protein Total Protein Albumin Troponin T HDL Cholesterol Urine WBC (Auto) Urine Creatinine Urine Total Protein Coronavirus (PCR) Crossmatch 06/17/20 06/17/20 06/17/20 18:18 23:08 23:16 WBC RBC Hgb Hct MCHC RDW Lymph % (Auto) [place] % (Auto) Eos % (Auto) Lymph # [place] # Seg Neutrophils % Seg Neuts % (Manual) Lymphocytes % (Manual) Seg Neutrophils # Seg Neutrophils # Man Lymphocytes # (Manual) Eosinophils % (Manual) Monocytes # (Manual) Eosinophils # (Manual) D-Dimer Heparin Anti-Xa Level 0.71 H ABG pH POC ABG pCO2 POC ABG pO2 ABG pO2 ABG HCO3 ABG O2 Saturation ABG Base Excess ABG Hemoglobin ABG Oxyhemoglobin VBG pH Oxyhemoglobin Sodium Potassium Chloride Carbon Dioxide BUN Creatinine Glucose POC Glucose 159 H 134 H Lactic Acid Calcium Ferritin AST Alkaline Phosphatase Lactate Dehydrogenase Total Creatine Kinase CK-MB (CK-2) C-Reactive Protein Total Protein Albumin Troponin T HDL Cholesterol Urine WBC (Auto) Urine Creatinine Urine Total Protein Coronavirus (PCR) Crossmatch 06/18/20 06/18/20 06/18/20 04:42 05:52 11:50 WBC RBC Hgb Hct MCHC RDW Lymph % (Auto) [place] % (Auto) Eos % (Auto) Lymph # [place] # Seg Neutrophils % Seg Neuts % (Manual) Lymphocytes % (Manual) Seg Neutrophils # Seg Neutrophils # Man Lymphocytes # (Manual) Eosinophils % (Manual) Monocytes # (Manual) Eosinophils # (Manual) D-Dimer Heparin Anti-Xa Level ABG pH POC ABG pCO2 POC ABG pO2 ABG pO2 ABG HCO3 ABG O2 Saturation ABG Base Excess ABG Hemoglobin ABG Oxyhemoglobin VBG pH Oxyhemoglobin Sodium Potassium Chloride Carbon Dioxide BUN 44 H Creatinine Glucose 115 H POC Glucose 171 H 167 H Lactic Acid Calcium Ferritin AST Alkaline Phosphatase Lactate Dehydrogenase Total Creatine Kinase CK-MB (CK-2) C-Reactive Protein Total Protein Albumin Troponin T HDL Cholesterol Urine WBC (Auto) Urine Creatinine Urine Total Protein Coronavirus (PCR) Crossmatch 06/18/20 06/19/20 06/19/20 23:46 05:48 07:52 WBC RBC Hgb Hct MCHC RDW Lymph % (Auto) [place] % (Auto) Eos % (Auto) Lymph # [place] # Seg Neutrophils % Seg Neuts % (Manual) Lymphocytes % (Manual) Seg Neutrophils # Seg Neutrophils # Man Lymphocytes # (Manual) Eosinophils % (Manual) Monocytes # (Manual) Eosinophils # (Manual) D-Dimer Heparin Anti-Xa Level ABG pH POC ABG pCO2 POC ABG pO2 ABG pO2 ABG HCO3 ABG O2 Saturation ABG Base Excess ABG Hemoglobin ABG Oxyhemoglobin VBG pH Oxyhemoglobin Sodium Potassium Chloride Carbon Dioxide BUN Creatinine Glucose POC Glucose 130 H 207 H 175 H Lactic Acid Calcium Ferritin AST Alkaline Phosphatase Lactate Dehydrogenase Total Creatine Kinase CK-MB (CK-2) C-Reactive Protein Total Protein Albumin Troponin T HDL Cholesterol Urine WBC (Auto) Urine Creatinine Urine Total Protein Coronavirus (PCR) Crossmatch 06/19/20 06/19/20 06/20/20 11:42 22:54 05:17 WBC RBC Hgb Hct MCHC RDW Lymph % (Auto) [place] % (Auto) Eos % (Auto) Lymph # [place] # Seg Neutrophils % Seg Neuts % (Manual) Lymphocytes % (Manual) Seg Neutrophils # Seg Neutrophils # Man Lymphocytes # (Manual) Eosinophils % (Manual) Monocytes # (Manual) Eosinophils # (Manual) D-Dimer Heparin Anti-Xa Level ABG pH POC ABG pCO2 POC ABG pO2 ABG pO2 ABG HCO3 ABG O2 Saturation ABG Base Excess ABG Hemoglobin ABG Oxyhemoglobin VBG pH Oxyhemoglobin Sodium Potassium Chloride Carbon Dioxide BUN Creatinine Glucose POC Glucose 166 H 135 H 218 H Lactic Acid Calcium Ferritin AST Alkaline Phosphatase Lactate Dehydrogenase Total Creatine Kinase CK-MB (CK-2) C-Reactive Protein Total Protein Albumin Troponin T HDL Cholesterol Urine WBC (Auto) Urine Creatinine Urine Total Protein Coronavirus (PCR) Crossmatch 06/20/20 06/20/20 06/20/20 12:04 16:25 16:35 WBC RBC Hgb Hct MCHC RDW Lymph % (Auto) [place] % (Auto) Eos % (Auto) Lymph # [place] # Seg Neutrophils % Seg Neuts % (Manual) Lymphocytes % (Manual) Seg Neutrophils # Seg Neutrophils # Man Lymphocytes # (Manual) Eosinophils % (Manual) Monocytes # (Manual) Eosinophils # (Manual) D-Dimer Heparin Anti-Xa Level ABG pH POC ABG pCO2 POC ABG pO2 ABG pO2 59.6 L ABG HCO3 28.7 H ABG O2 Saturation 93.5 L ABG Base Excess 3.4 H ABG Hemoglobin 7.2 L ABG Oxyhemoglobin VBG pH Oxyhemoglobin 91.3 L Sodium Potassium Chloride Carbon Dioxide BUN Creatinine Glucose POC Glucose 194 H 137 H Lactic Acid Calcium Ferritin AST Alkaline Phosphatase Lactate Dehydrogenase Total Creatine Kinase CK-MB (CK-2) C-Reactive Protein Total Protein Albumin Troponin T HDL Cholesterol Urine WBC (Auto) Urine Creatinine Urine Total Protein Coronavirus (PCR) Crossmatch 06/20/20 06/21/20 06/21/20 23:59 06:25 12:01 WBC RBC Hgb Hct MCHC RDW Lymph % (Auto) [place] % (Auto) Eos % (Auto) Lymph # [place] # Seg Neutrophils % Seg Neuts % (Manual) Lymphocytes % (Manual) Seg Neutrophils # Seg Neutrophils # Man Lymphocytes # (Manual) Eosinophils % (Manual) Monocytes # (Manual) Eosinophils # (Manual) D-Dimer Heparin Anti-Xa Level ABG pH POC ABG pCO2 POC ABG pO2 ABG pO2 ABG HCO3 ABG O2 Saturation ABG Base Excess ABG Hemoglobin ABG Oxyhemoglobin VBG pH Oxyhemoglobin Sodium Potassium Chloride Carbon Dioxide BUN Creatinine Glucose POC Glucose 156 H 177 H 195 H Lactic Acid Calcium Ferritin AST Alkaline Phosphatase Lactate Dehydrogenase Total Creatine Kinase CK-MB (CK-2) C-Reactive Protein Total Protein Albumin Troponin T HDL Cholesterol Urine WBC (Auto) Urine Creatinine Urine Total Protein Coronavirus (PCR) Crossmatch 06/21/20 06/21/20 06/22/20 17:04 21:51 05:06 WBC RBC Hgb Hct MCHC RDW Lymph % (Auto) [place] % (Auto) Eos % (Auto) Lymph # [place] # Seg Neutrophils % Seg Neuts % (Manual) Lymphocytes % (Manual) Seg Neutrophils # Seg Neutrophils # Man Lymphocytes # (Manual) Eosinophils % (Manual) Monocytes # (Manual) Eosinophils # (Manual) D-Dimer Heparin Anti-Xa Level ABG pH POC ABG pCO2 POC ABG pO2 ABG pO2 ABG HCO3 ABG O2 Saturation ABG Base Excess ABG Hemoglobin ABG Oxyhemoglobin VBG pH Oxyhemoglobin Sodium Potassium Chloride Carbon Dioxide BUN Creatinine Glucose POC Glucose 156 H 154 H 167 H Lactic Acid Calcium Ferritin AST Alkaline Phosphatase Lactate Dehydrogenase Total Creatine Kinase CK-MB (CK-2) C-Reactive Protein Total Protein Albumin Troponin T HDL Cholesterol Urine WBC (Auto) Urine Creatinine Urine Total Protein Coronavirus (PCR) Crossmatch 06/22/20 06/22/20 06/22/20 11:20 15:27 16:58 WBC RBC Hgb Hct MCHC RDW Lymph % (Auto) [place] % (Auto) Eos % (Auto) Lymph # [place] # Seg Neutrophils % Seg Neuts % (Manual) Lymphocytes % (Manual) Seg Neutrophils # Seg Neutrophils # Man Lymphocytes # (Manual) Eosinophils % (Manual) Monocytes # (Manual) Eosinophils # (Manual) D-Dimer Heparin Anti-Xa Level ABG pH 7.206 L POC ABG pCO2 79.9 H POC ABG pO2 ABG pO2 ABG HCO3 ABG O2 Saturation ABG Base Excess ABG Hemoglobin 8.3 L ABG Oxyhemoglobin VBG pH Oxyhemoglobin Sodium Potassium Chloride Carbon Dioxide BUN Creatinine Glucose POC Glucose 181 H 230 H Lactic Acid Calcium Ferritin AST Alkaline Phosphatase Lactate Dehydrogenase Total Creatine Kinase CK-MB (CK-2) C-Reactive Protein Total Protein Albumin Troponin T HDL Cholesterol Urine WBC (Auto) Urine Creatinine Urine Total Protein Coronavirus (PCR) Crossmatch 06/22/20 06/23/20 06/23/20 22:26 05:49 05:49 WBC RBC 2.58 L Hgb 7.4 L Hct 23.2 L MCHC RDW 17.0 H Lymph % (Auto) [place] % (Auto) 11.2 H Eos % (Auto) Lymph # 1.0 L [place] # Seg Neutrophils % Seg Neuts % (Manual) Lymphocytes % (Manual) Seg Neutrophils # Seg Neutrophils # Man Lymphocytes # (Manual) Eosinophils % (Manual) Monocytes # (Manual) Eosinophils # (Manual) D-Dimer Heparin Anti-Xa Level ABG pH POC ABG pCO2 POC ABG pO2 ABG pO2 ABG HCO3 ABG O2 Saturation ABG Base Excess ABG Hemoglobin ABG Oxyhemoglobin VBG pH Oxyhemoglobin Sodium Potassium Chloride Carbon Dioxide BUN 68 H Creatinine 2.4 H Glucose 198 H POC Glucose 195 H Lactic Acid Calcium Ferritin AST Alkaline Phosphatase Lactate Dehydrogenase Total Creatine Kinase CK-MB (CK-2) C-Reactive Protein Total Protein Albumin Troponin T HDL Cholesterol Urine WBC (Auto) Urine Creatinine Urine Total Protein Coronavirus (PCR) Crossmatch 06/23/20 06/23/20 06/23/20 05:50 12:29 12:34 WBC RBC Hgb Hct MCHC RDW Lymph % (Auto) [place] % (Auto) Eos % (Auto) Lymph # [place] # Seg Neutrophils % Seg Neuts % (Manual) Lymphocytes % (Manual) Seg Neutrophils # Seg Neutrophils # Man Lymphocytes # (Manual) Eosinophils % (Manual) Monocytes # (Manual) Eosinophils # (Manual) D-Dimer Heparin Anti-Xa Level ABG pH POC ABG pCO2 54.7 H POC ABG pO2 68.8 L ABG pO2 ABG HCO3 ABG O2 Saturation ABG Base Excess ABG Hemoglobin 9.8 L ABG Oxyhemoglobin 92.6 L VBG pH Oxyhemoglobin Sodium Potassium Chloride Carbon Dioxide BUN Creatinine Glucose POC Glucose 202 H 218 H Lactic Acid Calcium Ferritin AST Alkaline Phosphatase Lactate Dehydrogenase Total Creatine Kinase CK-MB (CK-2) C-Reactive Protein Total Protein Albumin Troponin T HDL Cholesterol Urine WBC (Auto) Urine Creatinine Urine Total Protein Coronavirus (PCR) Crossmatch 06/23/20 06/23/20 06/24/20 16:02 22:22 01:06 WBC RBC Hgb Hct MCHC RDW Lymph % (Auto) [place] % (Auto) Eos % (Auto) Lymph # [place] # Seg Neutrophils % Seg Neuts % (Manual) Lymphocytes % (Manual) Seg Neutrophils # Seg Neutrophils # Man Lymphocytes # (Manual) Eosinophils % (Manual) Monocytes # (Manual) Eosinophils # (Manual) D-Dimer Heparin Anti-Xa Level ABG pH POC ABG pCO2 POC ABG pO2 ABG pO2 ABG HCO3 ABG O2 Saturation ABG Base Excess ABG Hemoglobin ABG Oxyhemoglobin VBG pH Oxyhemoglobin Sodium Potassium Chloride Carbon Dioxide BUN Creatinine Glucose POC Glucose 190 H 166 H 171 H Lactic Acid Calcium Ferritin AST Alkaline Phosphatase Lactate Dehydrogenase Total Creatine Kinase CK-MB (CK-2) C-Reactive Protein Total Protein Albumin Troponin T HDL Cholesterol Urine WBC (Auto) Urine Creatinine Urine Total Protein Coronavirus (PCR) Crossmatch 06/24/20 06/24/20 06/24/20 04:48 05:35 11:48 WBC RBC Hgb Hct MCHC RDW Lymph % (Auto) [place] % (Auto) Eos % (Auto) Lymph # [place] # Seg Neutrophils % Seg Neuts % (Manual) Lymphocytes % (Manual) Seg Neutrophils # Seg Neutrophils # Man Lymphocytes # (Manual) Eosinophils % (Manual) Monocytes # (Manual) Eosinophils # (Manual) D-Dimer Heparin Anti-Xa Level ABG pH POC ABG pCO2 POC ABG pO2 ABG pO2 ABG HCO3 ABG O2 Saturation ABG Base Excess ABG Hemoglobin ABG Oxyhemoglobin VBG pH Oxyhemoglobin Sodium Potassium Chloride Carbon Dioxide BUN 75 H Creatinine 2.6 H Glucose 179 H POC Glucose 172 H 153 H Lactic Acid Calcium Ferritin AST Alkaline Phosphatase Lactate Dehydrogenase Total Creatine Kinase CK-MB (CK-2) C-Reactive Protein Total Protein Albumin Troponin T HDL Cholesterol Urine WBC (Auto) Urine Creatinine Urine Total Protein Coronavirus (PCR) Crossmatch 06/24/20 06/24/20 06/25/20 16:38 21:52 12:00 WBC RBC Hgb Hct MCHC RDW Lymph % (Auto) [place] % (Auto) Eos % (Auto) Lymph # [place] # Seg Neutrophils % Seg Neuts % (Manual) Lymphocytes % (Manual) Seg Neutrophils # Seg Neutrophils # Man Lymphocytes # (Manual) Eosinophils % (Manual) Monocytes # (Manual) Eosinophils # (Manual) D-Dimer Heparin Anti-Xa Level ABG pH POC ABG pCO2 POC ABG pO2 ABG pO2 ABG HCO3 ABG O2 Saturation ABG Base Excess ABG Hemoglobin ABG Oxyhemoglobin VBG pH Oxyhemoglobin Sodium Potassium Chloride Carbon Dioxide BUN Creatinine Glucose POC Glucose 123 H 115 H 203 H Lactic Acid Calcium Ferritin AST Alkaline Phosphatase Lactate Dehydrogenase Total Creatine Kinase CK-MB (CK-2) C-Reactive Protein Total Protein Albumin Troponin T HDL Cholesterol Urine WBC (Auto) Urine Creatinine Urine Total Protein Coronavirus (PCR) Crossmatch 06/25/20 06/25/20 06/25/20 15:43 16:37 23:02 WBC RBC Hgb Hct MCHC RDW Lymph % (Auto) [place] % (Auto) Eos % (Auto) Lymph # [place] # Seg Neutrophils % Seg Neuts % (Manual) Lymphocytes % (Manual) Seg Neutrophils # Seg Neutrophils # Man Lymphocytes # (Manual) Eosinophils % (Manual) Monocytes # (Manual) Eosinophils # (Manual) D-Dimer Heparin Anti-Xa Level ABG pH POC ABG pCO2 POC ABG pO2 ABG pO2 ABG HCO3 ABG O2 Saturation ABG Base Excess ABG Hemoglobin ABG Oxyhemoglobin VBG pH Oxyhemoglobin Sodium Potassium Chloride Carbon Dioxide BUN 71 H Creatinine 1.8 H Glucose 170 H POC Glucose 191 H 126 H Lactic Acid Calcium 8.2 L Ferritin AST Alkaline Phosphatase Lactate Dehydrogenase Total Creatine Kinase CK-MB (CK-2) C-Reactive Protein Total Protein Albumin Troponin T HDL Cholesterol Urine WBC (Auto) Urine Creatinine Urine Total Protein Coronavirus (PCR) Crossmatch 06/26/20 06/26/20 06/26/20 06:34 06:34 09:27 WBC RBC 2.41 L Hgb 6.9 L Hct 21.5 L MCHC RDW 16.7 H Lymph % (Auto) 10.9 L [place] % (Auto) 9.6 H Eos % (Auto) Lymph # 0.7 L [place] # Seg Neutrophils % 75.4 H Seg Neuts % (Manual) Lymphocytes % (Manual) Seg Neutrophils # Seg Neutrophils # Man Lymphocytes # (Manual) Eosinophils % (Manual) Monocytes # (Manual) Eosinophils # (Manual) D-Dimer Heparin Anti-Xa Level ABG pH POC ABG pCO2 POC ABG pO2 ABG pO2 ABG HCO3 ABG O2 Saturation ABG Base Excess ABG Hemoglobin ABG Oxyhemoglobin VBG pH Oxyhemoglobin Sodium Potassium Chloride Carbon Dioxide BUN 77 H Creatinine 1.9 H Glucose 190 H POC Glucose Lactic Acid Calcium Ferritin AST Alkaline Phosphatase Lactate Dehydrogenase Total Creatine Kinase CK-MB (CK-2) C-Reactive Protein Total Protein Albumin Troponin T HDL Cholesterol Urine WBC (Auto) Urine Creatinine Urine Total Protein Coronavirus (PCR) Crossmatch See Detail 06/26/20 06/26/20 06/26/20 12:15 16:28 17:28 WBC RBC Hgb Hct MCHC RDW Lymph % (Auto) [place] % (Auto) Eos % (Auto) Lymph # [place] # Seg Neutrophils % Seg Neuts % (Manual) Lymphocytes % (Manual) Seg Neutrophils # Seg Neutrophils # Man Lymphocytes # (Manual) Eosinophils % (Manual) Monocytes # (Manual) Eosinophils # (Manual) D-Dimer Heparin Anti-Xa Level ABG pH POC ABG pCO2 POC ABG pO2 ABG pO2 ABG HCO3 ABG O2 Saturation ABG Base Excess ABG Hemoglobin ABG Oxyhemoglobin VBG pH Oxyhemoglobin Sodium Potassium Chloride Carbon Dioxide BUN Creatinine Glucose POC Glucose 187 H 149 H 189 H Lactic Acid Calcium Ferritin AST Alkaline Phosphatase Lactate Dehydrogenase Total Creatine Kinase CK-MB (CK-2) C-Reactive Protein Total Protein Albumin Troponin T HDL Cholesterol Urine WBC (Auto) Urine Creatinine Urine Total Protein Coronavirus (PCR) Crossmatch 06/26/20 06/26/20 06/26/20 18:30 18:30 18:30 WBC RBC 2.87 L Hgb 8.2 L Hct 25.9 L MCHC RDW 17.8 H Lymph % (Auto) [place] % (Auto) Eos % (Auto) Lymph # [place] # Seg Neutrophils % Seg Neuts % (Manual) 83.0 H Lymphocytes % (Manual) 8.0 L Seg Neutrophils # Seg Neutrophils # Man Lymphocytes # (Manual) 0.6 L Eosinophils % (Manual) Monocytes # (Manual) Eosinophils # (Manual) D-Dimer Heparin Anti-Xa Level ABG pH POC ABG pCO2 POC ABG pO2 ABG pO2 ABG HCO3 ABG O2 Saturation ABG Base Excess ABG Hemoglobin ABG Oxyhemoglobin VBG pH Oxyhemoglobin Sodium Potassium Chloride Carbon Dioxide BUN 80 H Creatinine 2.1 H Glucose 260 H POC Glucose Lactic Acid 4.30 H* Calcium 8.3 L Ferritin AST Alkaline Phosphatase Lactate Dehydrogenase Total Creatine Kinase CK-MB (CK-2) C-Reactive Protein Total Protein Albumin Troponin T HDL Cholesterol Urine WBC (Auto) Urine Creatinine Urine Total Protein Coronavirus (PCR) Crossmatch 06/26/20 06/27/20 06/27/20 18:50 01:00 04:29 WBC RBC Hgb Hct MCHC RDW Lymph % (Auto) [place] % (Auto) Eos % (Auto) Lymph # [place] # Seg Neutrophils % Seg Neuts % (Manual) Lymphocytes % (Manual) Seg Neutrophils # Seg Neutrophils # Man Lymphocytes # (Manual) Eosinophils % (Manual) Monocytes # (Manual) Eosinophils # (Manual) D-Dimer Heparin Anti-Xa Level ABG pH 7.296 L POC ABG pCO2 POC ABG pO2 ABG pO2 116.5 H 200.5 H ABG HCO3 28.4 H ABG O2 Saturation 99.3 H ABG Base Excess 3.7 H ABG Hemoglobin 5.6 L ABG Oxyhemoglobin VBG pH Oxyhemoglobin Sodium Potassium Chloride Carbon Dioxide BUN Creatinine Glucose POC Glucose 123 H Lactic Acid Calcium Ferritin AST Alkaline Phosphatase Lactate Dehydrogenase Total Creatine Kinase CK-MB (CK-2) C-Reactive Protein Total Protein Albumin Troponin T HDL Cholesterol Urine WBC (Auto) Urine Creatinine Urine Total Protein Coronavirus (PCR) Crossmatch 06/27/20 06/27/20 06/27/20 05:00 05:00 05:00 WBC RBC 2.75 L Hgb 7.9 L Hct 24.3 L MCHC RDW 17.1 H Lymph % (Auto) 8.5 L [place] % (Auto) 12.6 H Eos % (Auto) Lymph # 0.7 L [place] # 1.0 H Seg Neutrophils % 77.5 H Seg Neuts % (Manual) Lymphocytes % (Manual) Seg Neutrophils # Seg Neutrophils # Man Lymphocytes # (Manual) Eosinophils % (Manual) Monocytes # (Manual) Eosinophils # (Manual) D-Dimer Heparin Anti-Xa Level ABG pH POC ABG pCO2 POC ABG pO2 ABG pO2 ABG HCO3 ABG O2 Saturation ABG Base Excess ABG Hemoglobin ABG Oxyhemoglobin VBG pH Oxyhemoglobin Sodium Potassium Chloride Carbon Dioxide BUN 80 H Creatinine 2.0 H Glucose 129 H POC Glucose Lactic Acid 0.60 L Calcium 7.9 L Ferritin AST Alkaline Phosphatase Lactate Dehydrogenase Total Creatine Kinase CK-MB (CK-2) C-Reactive Protein Total Protein Albumin Troponin T HDL Cholesterol Urine WBC (Auto) Urine Creatinine Urine Total Protein Coronavirus (PCR) Crossmatch 06/27/20 06/27/20 06/27/20 05:23 13:46 17:25 WBC RBC Hgb Hct MCHC RDW Lymph % (Auto) [place] % (Auto) Eos % (Auto) Lymph # [place] # Seg Neutrophils % Seg Neuts % (Manual) Lymphocytes % (Manual) Seg Neutrophils # Seg Neutrophils # Man Lymphocytes # (Manual) Eosinophils % (Manual) Monocytes # (Manual) Eosinophils # (Manual) D-Dimer Heparin Anti-Xa Level ABG pH POC ABG pCO2 POC ABG pO2 ABG pO2 ABG HCO3 ABG O2 Saturation ABG Base Excess ABG Hemoglobin ABG Oxyhemoglobin VBG pH Oxyhemoglobin Sodium Potassium Chloride Carbon Dioxide BUN Creatinine Glucose POC Glucose 109 H 158 H 162 H Lactic Acid Calcium Ferritin AST Alkaline Phosphatase Lactate Dehydrogenase Total Creatine Kinase CK-MB (CK-2) C-Reactive Protein Total Protein Albumin Troponin T HDL Cholesterol Urine WBC (Auto) Urine Creatinine Urine Total Protein Coronavirus (PCR) Crossmatch 06/27/20 06/27/20 06/28/20 18:43 23:46 04:05 WBC RBC Hgb 7.7 L Hct 22.1 L MCHC RDW Lymph % (Auto) [place] % (Auto) Eos % (Auto) Lymph # [place] # Seg Neutrophils % Seg Neuts % (Manual) Lymphocytes % (Manual) Seg Neutrophils # Seg Neutrophils # Man Lymphocytes # (Manual) Eosinophils % (Manual) Monocytes # (Manual) Eosinophils # (Manual) D-Dimer Heparin Anti-Xa Level ABG pH POC ABG pCO2 POC ABG pO2 ABG pO2 102.7 H ABG HCO3 28.7 H ABG O2 Saturation ABG Base Excess 3.7 H ABG Hemoglobin ABG Oxyhemoglobin VBG pH Oxyhemoglobin Sodium Potassium Chloride Carbon Dioxide BUN Creatinine Glucose POC Glucose 142 H Lactic Acid Calcium Ferritin AST Alkaline Phosphatase Lactate Dehydrogenase Total Creatine Kinase CK-MB (CK-2) C-Reactive Protein Total Protein Albumin Troponin T HDL Cholesterol Urine WBC (Auto) Urine Creatinine Urine Total Protein Coronavirus (PCR) Crossmatch 06/28/20 06/28/20 06/28/20 09:47 09:47 12:02 WBC RBC 2.53 L Hgb 7.4 L Hct 22.2 L MCHC RDW 16.8 H Lymph % (Auto) [place] % (Auto) 13.5 H Eos % (Auto) Lymph # 1.1 L [place] # 1.0 H Seg Neutrophils % Seg Neuts % (Manual) Lymphocytes % (Manual) Seg Neutrophils # Seg Neutrophils # Man Lymphocytes # (Manual) Eosinophils % (Manual) Monocytes # (Manual) Eosinophils # (Manual) D-Dimer Heparin Anti-Xa Level ABG pH POC ABG pCO2 POC ABG pO2 ABG pO2 ABG HCO3 ABG O2 Saturation ABG Base Excess ABG Hemoglobin ABG Oxyhemoglobin VBG pH Oxyhemoglobin Sodium Potassium Chloride Carbon Dioxide BUN 80 H Creatinine 1.5 H Glucose 139 H POC Glucose 169 H Lactic Acid Calcium 7.9 L Ferritin AST Alkaline Phosphatase Lactate Dehydrogenase Total Creatine Kinase CK-MB (CK-2) C-Reactive Protein Total Protein 5.0 L Albumin 2.1 L Troponin T HDL Cholesterol Urine WBC (Auto) Urine Creatinine Urine Total Protein Coronavirus (PCR) Crossmatch 06/28/20 06/28/20 06/28/20 12:30 12:30 17:24 WBC RBC 2.38 L Hgb 7.3 L Hct 20.9 L MCHC 35 H RDW 16.7 H Lymph % (Auto) [place] % (Auto) Eos % (Auto) Lymph # [place] # Seg Neutrophils % Seg Neuts % (Manual) Lymphocytes % (Manual) Seg Neutrophils # Seg Neutrophils # Man Lymphocytes # (Manual) Eosinophils % (Manual) Monocytes # (Manual) Eosinophils # (Manual) D-Dimer Heparin Anti-Xa Level ABG pH POC ABG pCO2 POC ABG pO2 ABG pO2 ABG HCO3 ABG O2 Saturation ABG Base Excess ABG Hemoglobin ABG Oxyhemoglobin VBG pH Oxyhemoglobin Sodium Potassium Chloride Carbon Dioxide BUN 74 H Creatinine 1.5 H Glucose 143 H POC Glucose 173 H Lactic Acid Calcium 7.5 L Ferritin AST Alkaline Phosphatase Lactate Dehydrogenase Total Creatine Kinase CK-MB (CK-2) C-Reactive Protein Total Protein Albumin Troponin T HDL Cholesterol Urine WBC (Auto) Urine Creatinine Urine Total Protein Coronavirus (PCR) Crossmatch 06/29/20 06/29/20 06/29/20 00:02 03:54 04:38 WBC RBC 2.55 L Hgb 7.3 L Hct 22.4 L MCHC RDW 16.4 H Lymph % (Auto) 13.3 L [place] % (Auto) 12.5 H Eos % (Auto) Lymph # 1.1 L [place] # 1.0 H Seg Neutrophils % Seg Neuts % (Manual) Lymphocytes % (Manual) Seg Neutrophils # Seg Neutrophils # Man Lymphocytes # (Manual) Eosinophils % (Manual) Monocytes # (Manual) Eosinophils # (Manual) D-Dimer Heparin Anti-Xa Level ABG pH POC ABG pCO2 POC ABG pO2 ABG pO2 ABG HCO3 26.9 H ABG O2 Saturation ABG Base Excess ABG Hemoglobin 6.9 L ABG Oxyhemoglobin VBG pH Oxyhemoglobin Sodium Potassium Chloride Carbon Dioxide BUN Creatinine Glucose POC Glucose 142 H Lactic Acid Calcium Ferritin AST Alkaline Phosphatase Lactate Dehydrogenase Total Creatine Kinase CK-MB (CK-2) C-Reactive Protein Total Protein Albumin Troponin T HDL Cholesterol Urine WBC (Auto) Urine Creatinine Urine Total Protein Coronavirus (PCR) Crossmatch 06/29/20 06/29/20 06/29/20 04:38 05:38 12:25 WBC RBC Hgb Hct MCHC RDW Lymph % (Auto) [place] % (Auto) Eos % (Auto) Lymph # [place] # Seg Neutrophils % Seg Neuts % (Manual) Lymphocytes % (Manual) Seg Neutrophils # Seg Neutrophils # Man Lymphocytes # (Manual) Eosinophils % (Manual) Monocytes # (Manual) Eosinophils # (Manual) D-Dimer Heparin Anti-Xa Level ABG pH POC ABG pCO2 POC ABG pO2 ABG pO2 ABG HCO3 ABG O2 Saturation ABG Base Excess ABG Hemoglobin ABG Oxyhemoglobin VBG pH Oxyhemoglobin Sodium Potassium Chloride 107.8 H Carbon Dioxide BUN 72 H Creatinine 1.4 H Glucose 127 H POC Glucose 122 H 138 H Lactic Acid Calcium 7.4 L Ferritin AST Alkaline Phosphatase Lactate Dehydrogenase Total Creatine Kinase CK-MB (CK-2) C-Reactive Protein Total Protein Albumin Troponin T HDL Cholesterol Urine WBC (Auto) Urine Creatinine Urine Total Protein Coronavirus (PCR) Crossmatch 06/29/20 06/29/20 06/29/20 14:45 14:45 14:45 WBC RBC Hgb Hct MCHC RDW Lymph % (Auto) [place] % (Auto) Eos % (Auto) Lymph # [place] # Seg Neutrophils % Seg Neuts % (Manual) Lymphocytes % (Manual) Seg Neutrophils # Seg Neutrophils # Man Lymphocytes # (Manual) Eosinophils % (Manual) Monocytes # (Manual) Eosinophils # (Manual) D-Dimer 2310.15 H Heparin Anti-Xa Level ABG pH POC ABG pCO2 POC ABG pO2 ABG pO2 ABG HCO3 ABG O2 Saturation ABG Base Excess ABG Hemoglobin ABG Oxyhemoglobin VBG pH Oxyhemoglobin Sodium Potassium Chloride Carbon Dioxide BUN Creatinine Glucose POC Glucose Lactic Acid Calcium Ferritin 223.6 H AST Alkaline Phosphatase Lactate Dehydrogenase 367 H Total Creatine Kinase CK-MB (CK-2) C-Reactive Protein 3.60 H Total Protein Albumin Troponin T HDL Cholesterol Urine WBC (Auto) Urine Creatinine Urine Total Protein Coronavirus (PCR) Crossmatch 06/29/20 06/29/20 06/29/20 18:27 23:35 Unknown WBC RBC Hgb Hct MCHC RDW Lymph % (Auto) [place] % (Auto) Eos % (Auto) Lymph # [place] # Seg Neutrophils % Seg Neuts % (Manual) Lymphocytes % (Manual) Seg Neutrophils # Seg Neutrophils # Man Lymphocytes # (Manual) Eosinophils % (Manual) Monocytes # (Manual) Eosinophils # (Manual) D-Dimer Heparin Anti-Xa Level ABG pH POC ABG pCO2 POC ABG pO2 ABG pO2 ABG HCO3 ABG O2 Saturation ABG Base Excess ABG Hemoglobin ABG Oxyhemoglobin VBG pH Oxyhemoglobin Sodium Potassium Chloride Carbon Dioxide BUN Creatinine Glucose POC Glucose 112 H 140 H Lactic Acid Calcium Ferritin AST Alkaline Phosphatase Lactate Dehydrogenase Total Creatine Kinase CK-MB (CK-2) C-Reactive Protein Total Protein Albumin Troponin T HDL Cholesterol Urine WBC (Auto) Urine Creatinine Urine Total Protein Coronavirus (PCR) Positive A Crossmatch 06/30/20 06/30/20 06/30/20 04:10 04:10 06:09 WBC RBC 2.44 L Hgb 7.1 L Hct 21.5 L MCHC RDW 16.6 H Lymph % (Auto) 11.0 L [place] % (Auto) 10.8 H Eos % (Auto) Lymph # 0.9 L [place] # 0.9 H Seg Neutrophils % 73.7 H Seg Neuts % (Manual) Lymphocytes % (Manual) Seg Neutrophils # Seg Neutrophils # Man Lymphocytes # (Manual) Eosinophils % (Manual) Monocytes # (Manual) Eosinophils # (Manual) D-Dimer Heparin Anti-Xa Level ABG pH POC ABG pCO2 POC ABG pO2 ABG pO2 ABG HCO3 ABG O2 Saturation ABG Base Excess ABG Hemoglobin ABG Oxyhemoglobin VBG pH Oxyhemoglobin Sodium Potassium Chloride 109.1 H Carbon Dioxide BUN 74 H Creatinine 1.3 H Glucose 191 H POC Glucose 187 H Lactic Acid Calcium 7.8 L Ferritin AST Alkaline Phosphatase Lactate Dehydrogenase Total Creatine Kinase CK-MB (CK-2) C-Reactive Protein Total Protein Albumin Troponin T HDL Cholesterol Urine WBC (Auto) Urine Creatinine Urine Total Protein Coronavirus (PCR) Crossmatch 06/30/20 06/30/20 06/30/20 12:04 17:43 23:41 WBC RBC Hgb Hct MCHC RDW Lymph % (Auto) [place] % (Auto) Eos % (Auto) Lymph # [place] # Seg Neutrophils % Seg Neuts % (Manual) Lymphocytes % (Manual) Seg Neutrophils # Seg Neutrophils # Man Lymphocytes # (Manual) Eosinophils % (Manual) Monocytes # (Manual) Eosinophils # (Manual) D-Dimer Heparin Anti-Xa Level ABG pH POC ABG pCO2 POC ABG pO2 ABG pO2 ABG HCO3 ABG O2 Saturation ABG Base Excess ABG Hemoglobin ABG Oxyhemoglobin VBG pH Oxyhemoglobin Sodium Potassium Chloride Carbon Dioxide BUN Creatinine Glucose POC Glucose 112 H 177 H 143 H Lactic Acid Calcium Ferritin AST Alkaline Phosphatase Lactate Dehydrogenase Total Creatine Kinase CK-MB (CK-2) C-Reactive Protein Total Protein Albumin Troponin T HDL Cholesterol Urine WBC (Auto) Urine Creatinine Urine Total Protein Coronavirus (PCR) Crossmatch 07/01/20 07/01/20 07/01/20 05:02 05:52 06:01 WBC 12.6 H RBC 2.95 L Hgb 8.2 L Hct 26.0 L MCHC RDW 16.9 H Lymph % (Auto) [place] % (Auto) Eos % (Auto) Lymph # [place] # Seg Neutrophils % Seg Neuts % (Manual) Lymphocytes % (Manual) Seg Neutrophils # Seg Neutrophils # Man 8.6 H Lymphocytes # (Manual) Eosinophils % (Manual) 5.0 H Monocytes # (Manual) Eosinophils # (Manual) 0.6 H D-Dimer Heparin Anti-Xa Level ABG pH POC ABG pCO2 POC ABG pO2 ABG pO2 ABG HCO3 ABG O2 Saturation ABG Base Excess ABG Hemoglobin 8.2 L ABG Oxyhemoglobin VBG pH Oxyhemoglobin Sodium Potassium Chloride Carbon Dioxide BUN Creatinine Glucose POC Glucose 129 H Lactic Acid Calcium Ferritin AST Alkaline Phosphatase Lactate Dehydrogenase Total Creatine Kinase CK-MB (CK-2) C-Reactive Protein Total Protein Albumin Troponin T HDL Cholesterol Urine WBC (Auto) Urine Creatinine Urine Total Protein Coronavirus (PCR) Crossmatch 07/01/20 07/01/20 07/01/20 06:01 06:01 06:08 WBC RBC Hgb Hct MCHC RDW Lymph % (Auto) [place] % (Auto) Eos % (Auto) Lymph # [place] # Seg Neutrophils % Seg Neuts % (Manual) Lymphocytes % (Manual) Seg Neutrophils # Seg Neutrophils # Man Lymphocytes # (Manual) Eosinophils % (Manual) Monocytes # (Manual) Eosinophils # (Manual) D-Dimer Heparin Anti-Xa Level ABG pH POC ABG pCO2 POC ABG pO2 ABG pO2 ABG HCO3 ABG O2 Saturation ABG Base Excess ABG Hemoglobin ABG Oxyhemoglobin VBG pH Oxyhemoglobin Sodium 147 H Potassium Chloride 108.0 H Carbon Dioxide BUN 71 H Creatinine 1.3 H Glucose 193 H POC Glucose 192 H Lactic Acid Calcium 8.1 L Ferritin AST Alkaline Phosphatase Lactate Dehydrogenase Total Creatine Kinase 300 H CK-MB (CK-2) C-Reactive Protein Total Protein Albumin Troponin T 0.067 H HDL Cholesterol 61 H Urine WBC (Auto) Urine Creatinine Urine Total Protein Coronavirus (PCR) Crossmatch 07/01/20 07/01/20 07/02/20 12:23 17:40 00:18 WBC RBC Hgb Hct MCHC RDW Lymph % (Auto) [place] % (Auto) Eos % (Auto) Lymph # [place] # Seg Neutrophils % Seg Neuts % (Manual) Lymphocytes % (Manual) Seg Neutrophils # Seg Neutrophils # Man Lymphocytes # (Manual) Eosinophils % (Manual) Monocytes # (Manual) Eosinophils # (Manual) D-Dimer Heparin Anti-Xa Level ABG pH POC ABG pCO2 POC ABG pO2 ABG pO2 ABG HCO3 ABG O2 Saturation ABG Base Excess ABG Hemoglobin ABG Oxyhemoglobin VBG pH Oxyhemoglobin Sodium Potassium Chloride Carbon Dioxide BUN Creatinine Glucose POC Glucose 111 H 135 H 145 H Lactic Acid Calcium Ferritin AST Alkaline Phosphatase Lactate Dehydrogenase Total Creatine Kinase CK-MB (CK-2) C-Reactive Protein Total Protein Albumin Troponin T HDL Cholesterol Urine WBC (Auto) Urine Creatinine Urine Total Protein Coronavirus (PCR) Crossmatch 07/02/20 07/02/20 07/02/20 04:11 04:23 05:54 WBC RBC Hgb Hct MCHC RDW Lymph % (Auto) [place] % (Auto) Eos % (Auto) Lymph # [place] # Seg Neutrophils % Seg Neuts % (Manual) Lymphocytes % (Manual) Seg Neutrophils # Seg Neutrophils # Man Lymphocytes # (Manual) Eosinophils % (Manual) Monocytes # (Manual) Eosinophils # (Manual) D-Dimer Heparin Anti-Xa Level ABG pH POC ABG pCO2 POC ABG pO2 ABG pO2 ABG HCO3 ABG O2 Saturation ABG Base Excess ABG Hemoglobin 5.4 L ABG Oxyhemoglobin VBG pH Oxyhemoglobin Sodium Potassium Chloride 108.6 H Carbon Dioxide BUN 72 H Creatinine Glucose 112 H POC Glucose 137 H Lactic Acid Calcium 7.8 L Ferritin AST Alkaline Phosphatase Lactate Dehydrogenase Total Creatine Kinase CK-MB (CK-2) C-Reactive Protein Total Protein Albumin Troponin T HDL Cholesterol Urine WBC (Auto) Urine Creatinine Urine Total Protein Coronavirus (PCR) Crossmatch Chest x-ray: other (none today) Allied health notes reviewed: RT
--- NOTE | 2020-07-02 12:57 | Progress Note ---
Assessment and Plan - Patient Problems (1) Acute kidney injury (AVANI) with acute tubular necrosis (ATN) Current Visit: Yes Status: Acute Plan to address problem: Renal function stabilizing, Cr down to 1.3, pt with good urine output. Follow-up electrolytes and renal function, cont supportive care for AVANI/ATN, maintain MAP > 65mmHg, avoid nephrotoxins, IV contrast (2) Pneumonia due to COVID-19 virus Current Visit: Yes Status: Acute Plan to address problem: Patient has completed 5 days of Remdesevir. Completed course of steroids. (3) Acute hypoxemic respiratory failure Current Visit: Yes Status: Acute Plan to address problem: Being managed by pulmonary. S/p Extubation 06/12, now reintubated on 06/26 s/p code blue. (4) Hyperkalemia Current Visit: Yes Status: Acute Plan to address problem: K normalized (5) Cardiac arrest Current Visit: Yes Status: Acute Plan to address problem: s/p ACLS with eventual ROSC (6) Cardiomyopathy Current Visit: No Status: Acute Qualifiers: Cardiomyopathy type: unspecified Qualified Code(s): I42.9 - Cardiomyopathy, unspecified (7) Type 2 diabetes mellitus with diabetic chronic kidney disease Current Visit: Yes Status: Acute Plan to address problem: DM management as per primary attending (8) Hypernatremia Current Visit: Yes Status: Acute Plan to address problem: Na corrected on increased free water flushes to 250ml q4hr Subjective Date of service: 07/02/20 Principal diagnosis: Ac hypoxemic resp failure; COVID-19; pneumonia; CHF; Pulm HTN; OHS; DM II Interval history: Pt remains on vent support. non-oliguric Objective - Exam Narrative Exam: Exam reviewed in chart d/t PPE preservation - Vital Signs Vital signs: Vital Signs - 12hr 07/02/20 07/02/20 07/02/20 01:00 02:00 03:00 Temperature Pulse Rate 74 74 76 Pulse Rate [ From Monitor] Respiratory 18 18 17 Rate Blood Pressure 143/70 150/63 164/66 O2 Sat by Pulse 99 99 99 Oximetry 07/02/20 07/02/20 07/02/20 04:00 04:45 05:00 Temperature 99.0 F Pulse Rate 76 79 81 Pulse Rate [ 74 From Monitor] Respiratory 18 14 Rate Blood Pressure 167/55 156/72 167/55 O2 Sat by Pulse 98 99 95 Oximetry 07/02/20 07/02/20 07/02/20 05:09 06:00 07:00 Temperature Pulse Rate 78 78 80 Pulse Rate [ From Monitor] Respiratory 18 21 Rate Blood Pressure 169/92 138/48 138/56 O2 Sat by Pulse 98 98 Oximetry 07/02/20 07/02/20 07/02/20 08:00 08:55 09:00 Temperature Pulse Rate 72 79 79 Pulse Rate [ 72 From Monitor] Respiratory 16 19 Rate Blood Pressure 148/62 154/50 154/50 O2 Sat by Pulse 99 99 99 Oximetry 07/02/20 07/02/20 07/02/20 09:34 09:35 10:00 Temperature Pulse Rate 78 79 79 Pulse Rate [ From Monitor] Respiratory 17 Rate Blood Pressure 160/56 160/56 160/56 O2 Sat by Pulse 99 Oximetry 07/02/20 07/02/20 07/02/20 11:00 11:49 12:00 Temperature Pulse Rate 77 73 78 Pulse Rate [ 79 From Monitor] Respiratory 17 18 Rate Blood Pressure 172/66 85/41 160/61 O2 Sat by Pulse 98 98 98 Oximetry - Lab 07/01/20 06:01 07/02/20 04:23 Most recent lab results ABG pH 7.396 pH Units (7.350-7.450) 07/02/20 04:11 ABG pCO2 41.9 mm Hg 07/02/20 04:11 ABG pO2 90.0 mm Hg (80.0-90.0) 07/02/20 04:11 ABG HCO3 25.1 mmol/L (20.0-26.0) 07/02/20 04:11 ABG O2 Saturation 97.1 % (95.0-99.0) 07/02/20 04:11 Calcium 7.8 mg/dL (8.4-10.2) L 07/02/20 04:23 Urine Creatinine 82.2 mg/dL (0.1-20.0) H 06/06/20 04:00 Urine Sodium 20 mmol/L 06/06/20 04:00 Urine Total Protein 196 mg/dL (5-11.8) H 06/06/20 04:00 Medications & Allergies - Medications Allergies/Adverse Reactions: Allergies No Known Allergies Allergy (Verified 01/21/20 12:28) Home Medications: Home Medications Medication Instructions Recorded Confirmed Last Taken Type AtorvaSTATin [Lipitor] 20 mg PO QHS 05/12/20 05/29/20 Unknown History lisinopriL [Zestril TAB] 40 mg PO QDAY 05/12/20 05/29/20 Unknown History metFORMIN [Glucophage] 850 mg PO BID 05/12/20 05/29/20 Unknown History Acetaminophen [Acetaminophen TAB] 650 mg PO Q4H PRN tablet 05/13/20 05/29/20 Unknown Rx Dicyclomine [Bentyl] 20 mg PO BID #20 tablet 05/13/20 05/29/20 Unknown Rx Famotidine [Pepcid] 20 mg PO BID #30 tablet 05/13/20 05/29/20 Unknown Rx carvediloL [Coreg] 6.25 mg PO BID #60 05/13/20 05/29/20 Unknown Rx Active Medications: Generic Name Dose Route Start Last Admin Trade Name Freq PRN Reason Stop Dose Admin Acetaminophen 650 mg 06/09/20 10:57 06/29/20 21:18 Tylenol FEEDTUBE 650 mg Q6H PRN Administration Fever >101 Amlodipine Besylate 10 mg 06/02/20 11:00 07/02/20 09:34 Amlodipine PO 10 mg DAILY NELSON Administration Lipase/Protease/Amylase 1 each 05/29/20 13:39 06/24/20 22:51 Pancreazhoracio Lawson 10,500 Unit FEEDTUBE 1 each PRN PRN Administration For Clogged Feeding Tube Carvedilol 12.5 mg 06/03/20 10:00 07/02/20 09:35 Coreg PO 12.5 mg BID NELSON Administration Clonidine HCl 0.2 mg 06/23/20 22:00 07/02/20 09:35 Catapres PO 0.2 mg Q12HR NELSON Administration Glycopyrrolate 2 mg 06/09/20 14:00 07/02/20 09:34 Glycopyrrolate PO 2 mg TID NELSON Administration Heparin Sodium (Porcine) 5,000 unit 06/30/20 14:00 07/02/20 05:23 Heparin SUB-Q 5,000 unit Q8HR NELSON Administration Hydralazine HCl 50 mg 06/03/20 09:00 07/02/20 05:09 Apresoline PO 50 mg Q8HR NELSON Administration Hydrophilic Ointment 1 applic 05/28/20 13:49 Vaseline Lip Therapy TP Q2HR PRN Dry Lips Vasopressin 20 unit/ Sodium 101 mls @ 9.09 mls/hr 06/26/20 19:00 06/26/20 19:30 Chloride IV 0 units/min TITR NELSON 0 mls/hr Titration Protocol 0.03 UNITS/MIN Norepinephrine 4 mg in 250 mls @ 7.5 mls/hr 06/26/20 19:00 06/26/20 20:06 Levophed Drip 4 Mg/Ns 250 Ml IV 0 mcg/min TITR NELSON 0 mls/hr Titration Protocol 2 MCG/MIN Phenylephrine HCl 100 mg/ 100 mls @ 3 mls/hr 06/26/20 18:15 Sodium Chloride IV TITR NELSON Protocol 50 MCG/MIN Cefepime HCl 2 gm in 100 mls @ 200 mls/hr 06/28/20 13:00 07/02/20 05:09 Cefepime/Ns 2 Gm/100 Ml IV 07/04/20 12:59 200 mls/hr Q8HR NELSON Administration Protocol Sodium Chloride 500 mls @ 5 mls/hr 06/30/20 22:00 06/30/20 21:42 Nacl 0.9% 500 Ml IV 5 mls/hr DIRECT NELSON Administration Insulin Glargine 10 units 06/08/20 22:00 07/01/20 21:03 Lantus SUB-Q 10 units QHS NELSON Administration Insulin Human Lispro 0 unit 05/29/20 18:00 07/02/20 05:52 Humalog SUB-Q Not Given Q6H NELSON Protocol Labetalol HCl 20 mg 06/03/20 09:00 06/26/20 21:27 Labetalol IV 20 mg Q4H PRN Administration HYPERTENSION Lansoprazole 30 mg 06/05/20 22:00 07/02/20 09:35 Prevacid Solutab FEEDTUBE 30 mg BID NELSON Administration Levetiracetam 500 mg 06/16/20 11:00 07/02/20 09:35 Keppra PO 500 mg BID NELSON Administration Lidocaine HCl 15 ml 06/26/20 20:00 07/02/20 09:35 Magic Mouthwash PO 15 ml TID NELSON Administration Metoclopramide HCl 10 mg 06/10/20 20:00 07/02/20 09:34 Reglan IV 10 mg Q6H NELSON Administration Multi-Ingred Cream/Lotion/Oil/Oint 1 applic 05/28/20 13:49 Artificial Tears Ophth Oint OU Q4HR PRN Dry Eye(s) Ondansetron HCl 4 mg 06/02/20 09:00 06/09/20 16:48 Zofran IV 4 mg Q8H PRN Administration Nausea And Vomiting Scopolamine 1 each 06/05/20 14:00 07/02/20 09:33 Transderm-Scop TD 1 each Q3D NELSON Administration Senna 17.6 mg 06/03/20 10:00 07/02/20 10:51 Senokot FEEDTUBE Not Given BID NELSON Simple Syrup 15 ml 05/29/20 13:39 Simple Syrup FEEDTUBE PRN PRN Hypoglycemia Simple Syrup 30 ml 05/29/20 13:39 Simple Syrup FEEDTUBE PRN PRN Hypoglycemia Sodium Bicarbonate 325 mg 05/29/20 13:39 Sodium Bicarbonate FEEDTUBE PRN PRN For Clogged Feeding Tube Sodium Chloride 10 ml 05/28/20 22:00 07/02/20 09:33 Sodium Chloride Flush Syringe 10 Ml IV 10 ml BID NELSON Administration Sodium Chloride 10 ml 05/28/20 19:08 06/16/20 17:50 Sodium Chloride Flush Syringe 10 Ml IV 10 ml PRN PRN Administration LINE FLUSH
[2020-07-02] MEDS: INSULIN GLARGINE 100 UNITS/ML SUB-Q SCH (22:10)
[2020-07-02] MEDS: MODAFINIL 100 MG TAB PO SCH (22:13)
[2020-07-03] MEDS: INSULIN LISPRO 100 UNIT/ML VIAL 3 mL SUB-Q SCH ×4 (00:25→18:11)
[2020-07-03] MEDS: METOCLOPRAMIDE 10 MG/2 ML INJ IV SCH ×4 (02:25→21:11)
[2020-07-03 04:20] LABS: ABG Base Excess -0.7 mmol/L (-2.0-3.0); ABG HCO3 23.7 mmol/L (20.0-26.0); ABG Methemoglobin 0.5 % (0.0-1.5); ABG Oxygen Saturation 98.3 % (95.0-99.0); ABG PCO2 37.9 mm Hg; ABG PH 7.414 pH Units (7.350-7.450)
[2020-07-03] MEDS: HEPARIN 5,000 UNIT/1 ML VIAL SUB-Q SCH ×3 (05:38→21:10)
[2020-07-03] MEDS: CEFEPIME/NS 2 GM/100 ML 2 GM/100 ML BAG IV SCH ×3 (05:38→21:08)
[2020-07-03] MEDS: hydrALAZINE 25 MG TAB PO SCH ×3 (05:38→21:08)
--- NOTE | 2020-07-03 08:49 | Progress Note ---
Assessment and Plan Assessment and plan: -- s/p cardiac arrest 07/01/2020,s/p CPR per ACLS protocol, refer to code sheet Intubated on vent, full CODE STATUS s/p Cardiac arrest on admission and on 06/26 Cardiology team on board Conservative management as per cardiology --Febrile illness with sepsis persistently positive for COVID-19 and Klebsiella pneumoniae Continue empiric antibiotics - Continue cefepime 2 g IV every 8 hours for now, ID following, completed treatment for COVID-19 -- Acute hypoxemic respiratory failure From COVID-19 viral infection and Klebsiella pneumoniae, intubated on admission extubated on 06/12/20 then placed on high flow o2 patient developed another respiratory arrest on 06/26 - reintubated CC following --COVID-19 positive since 05/28/2020 Completed treatment, ID following Repeat test 06/29 still positive --Superficial left cephalic vein DVT/elevated D-dimers[COVID 19] Patient is on heparin drip from 05/29/20 D-dimers improved [id number] s/p heparin drip, Discussed with ID, treated with Eliquis 5 mg twice a day for 1 week[per ID] stop date 06/26/2020 -- Acute metabolic encephalopathy, POA likely from sepsis and s/p cardiac arrest with possible anoxic injury -- Acute renal failure: likely ATN Resolved, avoid nephrotoxins Nephrology following -- Coronavirus infection with b/l PNA Completed remdesivir on 06/02 Completed dexamethasone - Last dose 06/07 ID recs appreciated. --Klebsiella pneumonia: Initially completed antibiotics with cefepime Repeat sputum culture still positive for Klebsiella, restarted antibiotic --CHF (congestive heart failure) Cardiology following. Ef 45% -- Coffee ground emesis -Stress ulcers Possible stress ulcers, On PPI H/H again dropped - transfuse GI evaluation -- Hypertension; moderate control Continue amlodipine, coreg, clonidine and hydralazine --Mild LFT elevation: likely from COVID-19. cont to monitor -- DVT prophylaxis Eliquis, SCD to bilateral lower extremities while in bed -- Advance care planning Patient is critically ill with multiple medical problems Poor prognosis, family updated and requesting full code The high probability of a clinically significant, sudden or life threatening deterioration of the [CVS, renal, respiratory, NATUROPATHIC ONCOLOGY PROVIDER] system(s) required my full and direct attention, intervention and personal management. The aggregate cr itical care time was [34] minutes. This time is in addition to time spent performing reported procedures but includes the following: [x] Data Review and interpretation [x] Patient assessment and monitoring of vital signs [x] Documentation [x] Medication orders and management Brief history: 64 YO Female with a medical history of HTN, Diastolic CHF, Pulmonary HTN, DM, Obesity Hypoventilation Syndrome presents to ED for evaluation of shortness of breath. As per staff, the EMS was notified for difficulty breathing. Upon arrival to the patient's home the patient was found to be in distress and was subsequently transported to [facility] for further evaluation and care. In route to [facility] the patient developed cardiac arrest and was treated in accordance with ACLS protocol with return of ROSC. Patient was seen and evaluated in the emergency department and was intubated and placed on ventilatory support. Patient admitted to ICU. Critical care team consulted in ED. She was found to have COVID-19 infection and was started on steroids and remdesivir. ID was consulted. Cardiology was consulted for her systolic heart failure and cardiac arrest. Patient completed treatment for COVID-19, then develop superimposed bacterial pneumonia with Klebsiella. She is now extubated, but remains confused and requiring high flow O2 and intermittent BiPAP. History Interval history: I have seen and examined the patient at the bedside Patient remains intubated on ventilatory support unresponsive Poor prognosis Vital signs noted Hospitalist Physical - Constitutional Vitals: Temp Pulse Resp BP Pulse Ox 98.5 F 76 18 157/63 99 07/03/20 08:00 07/03/20 08:01 07/03/20 08:01 07/03/20 08:01 07/03/20 08:01 General appearance: Present: mild distress, well-nourished, obese (Morbidly obese), other (On high flow oxygen) - EENT Eyes: Present: PERRL, EOM intact - Neck Neck: Present: supple, normal ROM - Respiratory Respiratory effort: normal Respiratory: bilateral: diminished, rales, negative: rhonchi, wheezing - Cardiovascular Rhythm: regular Heart Sounds: Present: S1 & S2 - Extremities Extremities: no ischemia Extremity abnormal: edema - Abdominal General gastrointestinal: soft, non-tender, non-distended, normal bowel sounds - Integumentary Integumentary: Present: clear, warm - Psychiatric Psychiatric: other (Intubated on vent) - Neurologic Neurologic: other (Intubated on vent) HEART Score - HEART Score Troponin: Troponin T 0.067 ng/mL (0.00-0.029) H 07/01/20 06:01 Results - Labs CBC & Chem 7: 07/01/20 06:01 07/02/20 04:23 Labs: Laboratory Last Values WBC 12.6 K/mm3 (4.5-11.0) H 07/01/20 06:01 RBC 2.95 M/mm3 (3.65-5.03) L 07/01/20 06:01 Hgb 8.2 gm/dl (10.1-14.3) L 07/01/20 06:01 Hct 26.0 % (30.3-42.9) L 07/01/20 06:01 MCV 88 fl (79-97) 07/01/20 06:01 MCH 28 pg (28-32) 07/01/20 06:01 MCHC 32 % (30-34) 07/01/20 06:01 RDW 16.9 % (13.2-15.2) H 07/01/20 06:01 Plt Count 421 K/mm3 (140-440) 07/01/20 06:01 Lymph % (Auto) 11.0 % (13.4-35.0) L 06/30/20 04:10 [place] % (Auto) 10.8 % (0.0-7.3) H 06/30/20 04:10 Eos % (Auto) 3.9 % (0.0-4.3) 06/30/20 04:10 Baso % (Auto) 0.6 % (0.0-1.8) 06/30/20 04:10 Lymph # 0.9 K/mm3 (1.2-5.4) L 06/30/20 04:10 [place] # 0.9 K/mm3 (0.0-0.8) H 06/30/20 04:10 Eos # 0.3 K/mm3 (0.0-0.4) 06/30/20 04:10 Baso # 0.1 K/mm3 (0.0-0.1) 06/30/20 04:10 Seg Neutrophils % 73.7 % (40.0-70.0) H 06/30/20 04:10 Add Manual Diff Complete 07/01/20 06:01 Total Counted 100 07/01/20 06:01 Seg Neutrophils # 6.2 K/mm3 (1.8-7.7) 06/30/20 04:10 Seg Neuts % (Manual) 68.0 % (40.0-70.0) 07/01/20 06:01 Band Neutrophils % 0 % 07/01/20 06:01 Lymphocytes % (Manual) 23.0 % (13.4-35.0) 07/01/20 06:01 Reactive Lymphs % (Man) 0 % 07/01/20 06:01 Monocytes % (Manual) 1.0 % (0.0-7.3) 07/01/20 06:01 Eosinophils % (Manual) 5.0 % (0.0-4.3) H 07/01/20 06:01 Basophils % (Manual) 1.0 % (0.0-1.8) 07/01/20 06:01 Metamyelocytes % 2.0 % 07/01/20 06:01 Myelocytes % 0 % 07/01/20 06:01 Promyelocytes % 0 % 07/01/20 06:01 Blast Cells % 0 % 07/01/20 06:01 Nucleated RBC % Not Reportable 07/01/20 06:01 Seg Neutrophils # Man 8.6 K/mm3 (1.8-7.7) H 07/01/20 06:01 Band Neutrophils # 0.0 K/mm3 07/01/20 06:01 Lymphocytes # (Manual) 2.9 K/mm3 (1.2-5.4) 07/01/20 06:01 Abs React Lymphs (Man) 0.0 K/mm3 07/01/20 06:01 Monocytes # (Manual) 0.1 K/mm3 (0.0-0.8) 07/01/20 06:01 Eosinophils # (Manual) 0.6 K/mm3 (0.0-0.4) H 07/01/20 06:01 Basophils # (Manual) 0.1 K/mm3 (0.0-0.1) 07/01/20 06:01 Metamyelocytes # 0.3 K/mm3 07/01/20 06:01 Myelocytes # 0.0 K/mm3 07/01/20 06:01 Promyelocytes # 0.0 K/mm3 07/01/20 06:01 Blast Cells # 0.0 K/mm3 07/01/20 06:01 WBC Morphology Not Reportable 07/01/20 06:01 Hypersegmented Neuts Not Reportable 07/01/20 06:01 Hyposegmented Neuts Not Reportable 07/01/20 06:01 Hypogranular Neuts Not Reportable 07/01/20 06:01 Smudge Cells Not Reportable 07/01/20 06:01 Toxic Granulation Not Reportable 07/01/20 06:01 Toxic Vacuolation Not Reportable 07/01/20 06:01 Dohle Bodies Not Reportable 07/01/20 06:01 Pelger-Huet Anomaly Not Reportable 07/01/20 06:01 Sanjuanita Rods Not Reportable 07/01/20 06:01 Platelet Estimate Consistent w auto 07/01/20 06:01 Clumped Platelets Not Reportable 07/01/20 06:01 Plt Clumps, EDTA Not Reportable 07/01/20 06:01 Large Platelets Not Reportable 07/01/20 06:01 Giant Platelets Not Reportable 07/01/20 06:01 Platelet Satelliting Not Reportable 07/01/20 06:01 Plt Morphology Comment Not Reportable 07/01/20 06:01 RBC Morphology Not Reportable 07/01/20 06:01 Dimorphic RBCs Not Reportable 07/01/20 06:01 Polychromasia Not Reportable 07/01/20 06:01 Hypochromasia Not Reportable 07/01/20 06:01 Poikilocytosis Not Reportable 07/01/20 06:01 Anisocytosis Few 07/01/20 06:01 Microcytosis Not Reportable 07/01/20 06:01 Macrocytosis Not Reportable 07/01/20 06:01 Spherocytes Not Reportable 07/01/20 06:01 Pappenheimer Bodies Not Reportable 07/01/20 06:01 Sickle Cells Not Reportable 07/01/20 06:01 Target Cells Not Reportable 07/01/20 06:01 Tear Drop Cells Not Reportable 07/01/20 06:01 Ovalocytes Not Reportable 07/01/20 06:01 Helmet Cells Not Reportable 07/01/20 06:01 Jones-Rutledge Bodies Not Reportable 07/01/20 06:01 Groom Rings Not Reportable 07/01/20 06:01 [place] Cells Not Reportable 07/01/20 06:01 Bite Cells Not Reportable 07/01/20 06:01 Crenated Cell Not Reportable 07/01/20 06:01 Elliptocytes Not Reportable 07/01/20 06:01 Acanthocytes (Spur) Not Reportable 07/01/20 06:01 Rouleaux Not Reportable 07/01/20 06:01 Hemoglobin C Crystals Not Reportable 07/01/20 06:01 Schistocytes Not Reportable 07/01/20 06:01 Malaria parasites Not Reportable 07/01/20 06:01 Kev Bodies Not Reportable 07/01/20 06:01 Hem Pathologist Commnt No 07/01/20 06:01 PT 14.2 Sec. (12.2-14.9) 05/29/20 15:10 INR 1.08 (0.87-1.13) 05/29/20 15:10 APTT 27.2 Sec. (24.2-36.6) 05/29/20 15:10 D-Dimer 2310.15 ng/mlDDU (0-234) H 06/29/20 14:45 Heparin Anti-Xa Level 0.34 U.I./ml (0.3-0.7) 06/19/20 10:46 ABG pH 7.414 pH Units (7.350-7.450) 07/03/20 03:49 POC ABG pCO2 35.8 mmHg (32.0-48.0) 07/01/20 05:02 ABG pCO2 37.9 mm Hg 07/03/20 03:49 ABG Oxyhemoglobin 92.6 (94-98) L 06/23/20 12:34 POC ABG pO2 90.8 mmHg (83-108) 07/01/20 05:02 ABG pO2 121.0 mm Hg (80.0-90.0) H 07/03/20 03:49 POC ABG HCO3 22.1 07/01/20 05:02 ABG HCO3 23.7 mmol/L (20.0-26.0) 07/03/20 03:49 ABG O2 Saturation 98.3 % (95.0-99.0) 07/03/20 03:49 ABG O2 Content 11.8 (0.0-44) 07/03/20 03:49 POC ABG Base Excess -2.3 07/01/20 05:02 ABG Base Excess -0.7 mmol/L (-2.0-3.0) 07/03/20 03:49 ABG Hemoglobin 8.5 gm/dl (12.0-16.0) L 07/03/20 03:49 ABG Carboxyhemoglobin 1.5 % (0.0-5.0) 07/03/20 03:49 ABG Methemoglobin 0.5 % (0.0-1.5) 07/03/20 03:49 VBG pH 7.152 (7.320-7.420) L* 05/28/20 13:47 Carboxyhemoglobin 0.5 (0.5-1.5) 06/23/20 12:34 Oxyhemoglobin 96.3 % (95.0-99.0) 07/03/20 03:49 FiO2 30 % 07/03/20 03:49 Sodium 144 mmol/L (137-145) 07/02/20 04:23 Potassium 3.8 mmol/L (3.6-5.0) 07/02/20 04:23 Chloride 108.6 mmol/L (98-107) H 07/02/20 04:23 Carbon Dioxide 24 mmol/L (22-30) 07/02/20 04:23 Anion Gap 15 mmol/L 07/02/20 04:23 BUN 72 mg/dL (7-17) H 07/02/20 04:23 Creatinine 1.2 mg/dL (0.6-1.2) 07/02/20 04:23 Estimated GFR 46 ml/min 07/02/20 04:23 BUN/Creatinine Ratio 60 % 07/02/20 04:23 Glucose 112 mg/dL (65-100) H 07/02/20 04:23 POC Glucose 135 (70-105) H 07/03/20 06:00 Lactic Acid 0.60 mmol/L (0.7-2.0) L 06/27/20 05:00 Calcium 7.8 mg/dL (8.4-10.2) L 07/02/20 04:23 Ferritin 223.6 ng/mL (10.0-200.0) H 06/29/20 14:45 Total Bilirubin 0.20 mg/dL (0.1-1.2) 06/28/20 09:47 AST 24 units/L (5-40) 06/28/20 09:47 ALT 21 units/L (7-56) 06/28/20 09:47 Alkaline Phosphatase 113 units/L (35-129) 06/28/20 09:47 Lactate Dehydrogenase 367 units/L (91-180) H 06/29/20 14:45 C-Reactive Protein 3.60 mg/dL (0.00-1.30) H 06/29/20 14:45 Total Protein 5.0 g/dL (6.3-8.2) L 06/28/20 09:47 Albumin 2.1 g/dL (3.9-5) L 06/28/20 09:47 Albumin/Globulin Ratio 0.7 % 06/28/20 09:47 Total Creatine Kinase 300 units/L (30-135) H 07/01/20 06:01 CK-MB (CK-2) 2.0 ng/mL (0.0-4.0) 07/01/20 06:01 CK-MB (CK-2) Rel Index 0.6 (0-4) 07/01/20 06:01 Troponin T 0.067 ng/mL (0.00-0.029) H 07/01/20 06:01 Triglycerides 142 mg/dL (2-149) 07/01/20 06:01 Cholesterol 137 mg/dL (50-199) 07/01/20 06:01 LDL Cholesterol Direct 62 mg/dL (50-130) 07/01/20 06:01 HDL Cholesterol 61 mg/dL (40-59) H 07/01/20 06:01 Cholesterol/HDL Ratio 2.24 % 07/01/20 06:01 Procalcitonin 2.45 ng/mL (<0.15) 06/29/20 14:45 Urine Color Yellow (Yellow) 06/06/20 04:00 Urine Turbidity Cloudy (Clear) 06/06/20 04:00 Urine pH 5.0 (5.0-7.0) 06/06/20 04:00 Ur Specific [place] 1.012 (1.003-1.030) 06/06/20 04:00 Urine Protein 100 mg/dl mg/dL (Negative) 06/06/20 04:00 Urine Glucose (UA) 50 mg/dL (Negative) 06/06/20 04:00 Urine Ketones Neg mg/dL (Negative) 06/06/20 04:00 Urine Blood Sm (Negative) 06/06/20 04:00 Urine Nitrite Neg (Negative) 06/06/20 04:00 Urine Bilirubin Neg (Negative) 06/06/20 04:00 Urine Urobilinogen < 2.0 mg/dL (<2.0) 06/06/20 04:00 Ur Leukocyte Esterase Neg (Negative) 06/06/20 04:00 Urine WBC (Auto) 15.0 /HPF (0.0-6.0) H 06/06/20 04:00 Urine RBC (Auto) 23.0 /HPF (0.0-6.0) 06/06/20 04:00 U Epithel Cells (Auto) 8.0 /HPF (0-13.0) 06/06/20 04:00 Urine Bacteria (Auto) 2+ /HPF (Negative) 06/06/20 04:00 Amorphous Crystals 1+ 06/06/20 04:00 Hyaline Casts 16 /LPF 06/06/20 04:00 Urine Mucus 2+ /HPF 06/06/20 04:00 Urine Yeast (Budding) 2+ /HPF 06/03/20 Unknown Urine Creatinine 82.2 mg/dL (0.1-20.0) H 06/06/20 04:00 Urine Sodium 20 mmol/L 06/06/20 04:00 Urine Total Protein 196 mg/dL (5-11.8) H 06/06/20 04:00 Nasal Screen MRSA (PCR) Negative (Negative) 06/29/20 08:30 Coronavirus (PCR) Positive (Negative) A 06/29/20 Unknown Blood Type A POSITIVE 06/26/20 09:27 Antibody Screen Negative 06/26/20 09:27 Crossmatch See Detail 06/26/20 09:27 Microbiology: Microbiology 06/28/20 12:30 Peripheral/Venous Blood Culture - Preliminary NO GROWTH AFTER 4 DAYS 06/28/20 12:30 Peripheral/Venous Blood Culture - Preliminary NO GROWTH AFTER 4 DAYS - Diagnostic Impressions Diagnostic Impressions: Echocardiogram Limited Views 05/29/20 13:52 Transthoracic Echocardiogram Indication: Pulm Embolus BP: 169/76 HR: 85 Conclusions *Limited study for RV size post cardiopulmonar arrest. *RV is only slightly dilated, no significant difference from prior echo 05/13/2020. *Global left ventricular systolic function is at the lower limits of normal. *The estimated ejection fraction is 45-50%. *Mild to moderate concentric left ventricular hypertrophy is observed. *The left and right atria are both mild to moderately dilated. Findings Left Ventricle: The left ventricular chamber size is mildly dilated. Mild to moderate concentric left ventricular hypertrophy is observed. Global left ventricular systolic function is at the lower limits of normal. The estimated ejection fraction is 45-50%. Left Atrium: The left atrium is mild to moderately dilated. Right Ventricle: The right ventricle is slightly dilated. Right Atrium: The right atrium is mild to moderately dilated. Aortic Valve: The aortic valve leaflets are moderately thickened. Mitral Valve: There is mitral annular calcification. The mitral valve leaflets are moderately thickened. Tricuspid Valve: The tricuspid valve leaflets are mildly thickened. Pericardium: A trivial pericardial effusion is visualized. NDUM: 05/29/20 1808 Amended Report Transthoracic Echocardiogram Indication: Pulm Embolus BP: 169/76 HR: 85 Conclusions *Limited study for RV size post cardiopulmonary arrest. *RV is only slightly dilated, no significant difference from prior echo 05/13/2020. *Global left ventricular systolic function is at the lower limits of normal. *The estimated ejection fraction is 45-50%. *Mild to moderate concentric left ventricular hypertrophy is observed. *The left and right atria are both mild to moderately dilated. Findings Left Ventricle: The left ventricular chamber size is mildly dilated. Mild to moderate concentric left ventricular hypertrophy is observed. Global left ventricular systolic function is at the lower limits of normal. The estimated ejection fraction is 45-50%. Left Atrium: The left atrium is mild to moderately dilated. Right Ventricle: The right ventricle is slightly dilated. Right Atrium: The right atrium is mild to moderately dilated. Aortic Valve: The aortic valve leaflets are moderately thickened. Mitral Valve: There is mitral annular calcification. The mitral valve leaflets are moderately thickened. Tricuspid Valve: The tricuspid valve leaflets are mildly thickened. Pericardium: A trivial pericardial effusion is visualized. Helm/IV: Voiding Method Indwelling Catheter IV Catheter Type [Left Upper Mid-line arm] IV Catheter Type [Right CVL Internal Jugular] IV Catheter Type [Right Hand] INT / Saline Lock IV Catheter Type [Right Wrist] Not found on patient IV Catheter Type [Left Hand] INT / Saline Lock IV Catheter Type [Left INT / Saline Lock Antecubital] IV Catheter Type [Right Peripheral IV Forearm] IV Catheter Type [Left Leg] Intra-osseous Active Medications - Current Medications Current Medications: Generic Name Dose Route Start Last Admin Trade Name Freq PRN Reason Stop Dose Admin Acetaminophen 650 mg 06/09/20 10:57 06/29/20 21:18 Tylenol FEEDTUBE 650 mg Q6H PRN Administration Fever >101 Amlodipine Besylate 10 mg 06/02/20 11:00 07/02/20 09:34 Amlodipine PO 10 mg DAILY NELSON Administration Lipase/Protease/Amylase 1 each 05/29/20 13:39 06/24/20 22:51 Pancreazhoracio Lawson 10,500 Unit FEEDTUBE 1 each PRN PRN Administration For Clogged Feeding Tube Carvedilol 12.5 mg 06/03/20 10:00 07/02/20 22:06 Coreg PO 12.5 mg BID NELSON Administration Clonidine HCl 0.2 mg 06/23/20 22:00 07/02/20 22:08 Catapres PO 0.2 mg Q12HR NELSON Administration Glycopyrrolate 2 mg 06/09/20 14:00 07/02/20 22:09 Glycopyrrolate PO 2 mg TID NELSON Administration Heparin Sodium (Porcine) 5,000 unit 06/30/20 14:00 07/03/20 05:38 Heparin SUB-Q 5,000 unit Q8HR NELSON Administration Hydralazine HCl 50 mg 06/03/20 09:00 07/03/20 05:38 Apresoline PO 50 mg Q8HR NELSON Administration Hydrophilic Ointment 1 applic 05/28/20 13:49 Vaseline Lip Therapy TP Q2HR PRN Dry Lips Vasopressin 20 unit/ Sodium 101 mls @ 9.09 mls/hr 06/26/20 19:00 06/26/20 19:30 Chloride IV 0 units/min TITR NELSON 0 mls/hr Titration Protocol 0.03 UNITS/MIN Norepinephrine 4 mg in 250 mls @ 7.5 mls/hr 06/26/20 19:00 06/26/20 20:06 Levophed Drip 4 Mg/Ns 250 Ml IV 0 mcg/min TITR NELSON 0 mls/hr Titration Protocol 2 MCG/MIN Phenylephrine HCl 100 mg/ 100 mls @ 3 mls/hr 06/26/20 18:15 Sodium Chloride IV TITR NELSON Protocol 50 MCG/MIN Cefepime HCl 2 gm in 100 mls @ 200 mls/hr 06/28/20 13:00 07/03/20 05:38 Cefepime/Ns 2 Gm/100 Ml IV 07/04/20 12:59 200 mls/hr Q8HR NELSON Administration Protocol Sodium Chloride 500 mls @ 5 mls/hr 06/30/20 22:00 06/30/20 21:42 Nacl 0.9% 500 Ml IV 5 mls/hr DIRECT NELSON Administration Insulin Glargine 10 units 06/08/20 22:00 07/02/20 22:10 Lantus SUB-Q 10 units QHS NELSON Administration Insulin Human Lispro 0 unit 05/29/20 18:00 07/03/20 06:05 Humalog SUB-Q Not Given Q6H NELSON Protocol Labetalol HCl 20 mg 06/03/20 09:00 07/02/20 13:21 Labetalol IV 20 mg Q4H PRN Administration HYPERTENSION Lansoprazole 30 mg 06/05/20 22:00 07/02/20 22:06 Prevacid Solutab FEEDTUBE 30 mg BID NELSON Administration Levetiracetam 500 mg 06/16/20 11:00 07/02/20 22:09 Keppra PO 500 mg BID NELSON Administration Lidocaine HCl 15 ml 06/26/20 20:00 07/02/20 22:09 Magic Mouthwash PO 15 ml TID NELSON Administration Metoclopramide HCl 10 mg 06/10/20 20:00 07/03/20 02:25 Reglan IV 10 mg Q6H NELSON Administration Modafinil 100 mg 07/02/20 20:00 07/02/20 22:13 Provigil PO 100 mg DAILY NELSON Administration Multi-Ingred Cream/Lotion/Oil/Oint 1 applic 05/28/20 13:49 Artificial Tears Ophth Oint OU Q4HR PRN Dry Eye(s) Ondansetron HCl 4 mg 06/02/20 09:00 06/09/20 16:48 Zofran IV 4 mg Q8H PRN Administration Nausea And Vomiting Scopolamine 1 each 06/05/20 14:00 07/02/20 09:33 Transderm-Scop TD 1 each Q3D NELSON Administration Senna 17.6 mg 06/03/20 10:00 07/02/20 22:10 Senokot FEEDTUBE 17.6 mg BID NELSON Administration Simple Syrup 15 ml 05/29/20 13:39 Simple Syrup FEEDTUBE PRN PRN Hypoglycemia Simple Syrup 30 ml 05/29/20 13:39 Simple Syrup FEEDTUBE PRN PRN Hypoglycemia Sodium Bicarbonate 325 mg 05/29/20 13:39 Sodium Bicarbonate FEEDTUBE PRN PRN For Clogged Feeding Tube Sodium Chloride 10 ml 05/28/20 22:00 07/02/20 22:10 Sodium Chloride Flush Syringe 10 Ml IV 10 ml BID NELSON Administration Sodium Chloride 10 ml 05/28/20 19:08 06/16/20 17:50 Sodium Chloride Flush Syringe 10 Ml IV 10 ml PRN PRN Administration LINE FLUSH Nutrition/Malnutrition Assess - Dietary Evaluation Nutrition/Malnutrition Findings: Nutrition Notes Start: 05/29/20 11:45 Freq: Status: Active Protocol: Document 07/01/20 12:59 [email or web address] (Rec: 07/01/20 13:35 [email or web address]) Co-Sign 07/01/20 12:59 LP Nutrition Notes Initial or Follow up Reassessment Current Diagnosis Acute Kidney Injury,Diabetes, Heart Failure,Respiratory Failure Other Pertinent Diagnosis COVID-19 (+) Current Diet Glucerna 1.2 at 55ml/hr Labs/Tests Na 147 BUN 71 Cr 1.3 BG 193 Pertinent Medications Humalog Height 5 ft 6 in Weight 123 kg [place] Body Weight (kg) 59.09 BMI 43.7 Weight Status Morbidly Obese Subjective/Other Information Per RN, TF on hold for gastric residuals of 450ml. Today residuals were at 240ml. recommended trickle feed of 10ml/hr and increase to goal. Pt Code Blue this AM, pt stable on vent. Percent of energy/protein needs met: 0%/0% Burn Absent Trauma Absent Current % PO Negligible Minimum of two criteria No physical signs of malnutrition #1 Nutrition Diagnosis Inadequate oral intake Diagnosis Progress(for reassessment Continues documentation) Is patient on ventilator? Yes Is Patient Ambulatory and/or Out of Bed No REE-([facility]-confined to bed) 2172.576 Kcal/Kg value to use for calculation 13 Approximate Energy Requirements Using 1599 kcal/Kg Calculation Used for Recommendations Kcal/kg Additional Notes Protein needs up to 148g (up to 2.5g/kg IBW) Fluid needs 1ml/kcal Nutrition Intervention Change Diet Order: Continue Nutrition Support: Glucerna 1.2 at 55ml/hr Flush 100ml q4h Kcal 1,584 Protein (gm) 79 Fluid (mL) 1,062 Goal #1 TF tolerance Goal #2 TF to meet at least 65%-70% energy and 80% pro needs Anticipated Discharge Needs: Unable to determine at this time Follow-Up By: 07/03/20 Additional Comments F/U TF tolerance, goal rate and water flush.
[2020-07-03] MEDS: levETIRAcetam 500 MG/5 ML ORAL LIQD PO SCH ×2 (09:04→21:08)
[2020-07-03] MEDS: MAGIC MOUTHWASH 30ML PO SCH ×3 (09:04→21:09)
[2020-07-03] MEDS: LANSOPRAZOLE 30 MG SOLUTAB FEEDTUBE SCH ×2 (09:04→21:08)
[2020-07-03] MEDS: MODAFINIL 100 MG TAB PO SCH (09:05)
[2020-07-03] MEDS: carvediloL 12.5 MG TAB PO SCH ×2 (09:05→21:08)
[2020-07-03] MEDS: GLYCOPYRROLATE 2 MG TAB PO SCH ×3 (09:05→21:08)
[2020-07-03] MEDS: amLODIPine 10 MG TAB PO SCH (09:05)
[2020-07-03] MEDS: cloNIDine 0.2 MG TAB PO SCH ×2 (09:06→21:08)
[2020-07-03] MEDS: SENNOSIDES ORAL LIQD 8.8 MG/5 ML ORAL LIQD FEEDTUBE SCH ×2 (09:06→21:08)
--- NOTE | 2020-07-03 09:22 | Progress Note ---
Assessment and Plan Cultures: Coronavirus PCR 05/28/2020: Positive 05/28/2020 blood culture: no growth 05/28/2020 tracheal aspirate: Usual respiratory bobo 05/28/2020 urine culture: No growth 06/03/2020 urine culture: No growth 06/09/2020 tracheal aspirate Klebsiella pneumoniae 06/28/2020 sputum culture positive for Klebsiella 06/28/2020 blood cultures no growth today 06/29/2020 COV2 PCR positive A/P: 64-year-old female with hypertension, diastolic CHF, pulmonary hypertension, diabetes, obesity hypoventilation syndrome, recent COVID pneumonia, was admitted to the emergency room after she called EMS due to difficulty breathing. On the way to the hospital, patient developed cardiac arrest and was treated as per ACLS protocol: #New cardiac arrest on 07/01/2020 #New sepsis on 06/27/2020: Fever resolved. After asystolic cardiac arrest on 06/26/2028. ? Healthcare associated pneumonia #Bilateral pneumonia: Secondary to COVID-19. Completed 5 days of IV Remdesivir 06/02/2020. ? Healthcare associated pneumonia, repeat sputum Klebsiella. Chest x-ray worsening infiltrates. #Acute hypoxic respiratory failure: On mechanical ventilation. Minimal vent settings. #HF: EF 45-50% #Mild LFT elevation: likely from COVID-19. #AVANI: Improving. #Severe constipation: Status post manual disimpaction #Encephalopathy: ? Post cardiac arrest. Recs: -Continue cefepime 2 g IV every 8 hours total 7 days - day 6 of 7 -I requested SARS-CoV-2 PCR cycle threshold (Ct) value to Micro, the odds of positive culture/infectivity from COVID-[address] value >34 indicating no meaningful or transmissible disease. -Monitor mentation Very poor prognosis I will be rounding this weekend, Dr. Wright rounding on Monday. Angela Savage MD [facility] ([facility] C: [phone] O: [phone] F: [phone] Subjective Date of service: 07/03/20 Principal diagnosis: Ac hypoxemic resp failure; COVID-19; pneumonia; CHF; Pulm HTN; OHS; DM II Objective - Constitutional Vitals: Vital Signs Temp Pulse Resp BP Pulse Ox 98.5 F 86 18 172/72 97 07/03/20 08:00 07/03/20 09:06 07/03/20 08:01 07/03/20 09:06 07/03/20 08:47 Temperature -Last 24 Hours Temperature 98.5 F Temperature 99.8 F Temperature 99.7 F Temperature 98.7 F Temperature 98.7 F - Labs CBC & Chem 7: 07/01/20 06:01 07/02/20 04:23 Labs: Abnormal lab results 07/02/20 07/02/20 07/02/20 Range/Units 11:38 18:04 23:59 ABG pO2 (80.0-90.0) mm Hg ABG Hemoglobin (12.0-16.0) gm/dl POC Glucose 128 H 135 H 156 H (70-105) 07/03/20 07/03/20 Range/Units 03:49 06:00 ABG pO2 121.0 H (80.0-90.0) mm Hg ABG Hemoglobin 8.5 L (12.0-16.0) gm/dl POC Glucose 135 H (70-105)
--- NOTE | 2020-07-03 10:55 | Progress Note ---
Assessment and Plan - Patient Problems (1) Acute kidney injury (AVANI) with acute tubular necrosis (ATN) Current Visit: Yes Status: Acute Plan to address problem: Renal function stabilizing, Cr down to 1.2, pt with good urine output. Follow-up electrolytes and renal function, cont supportive care for AVANI/ATN, maintain MAP > 65mmHg, avoid nephrotoxins, IV contrast, no further renal recommendation, will sign off for now,please call with any questions (2) Pneumonia due to COVID-19 virus Current Visit: Yes Status: Acute Plan to address problem: Patient has completed 5 days of Remdesevir. Completed course of steroids. (3) Acute hypoxemic respiratory failure Current Visit: Yes Status: Acute Plan to address problem: Being managed by pulmonary. S/p Extubation 06/12, now reintubated on 06/26 s/p code blue. (4) Hyperkalemia Current Visit: Yes Status: Acute Plan to address problem: K normalized (5) Cardiac arrest Current Visit: Yes Status: Acute Plan to address problem: s/p ACLS with eventual ROSC (6) Cardiomyopathy Current Visit: No Status: Acute Qualifiers: Cardiomyopathy type: unspecified Qualified Code(s): I42.9 - Cardiomyopathy, unspecified (7) Type 2 diabetes mellitus with diabetic chronic kidney disease Current Visit: Yes Status: Acute Plan to address problem: DM management as per primary attending (8) Hypernatremia Current Visit: Yes Status: Acute Plan to address problem: Na corrected on increased free water flushes to 250ml q4hr Subjective Date of service: 07/03/20 Principal diagnosis: Ac hypoxemic resp failure; COVID-19; pneumonia; CHF; Pulm HTN; OHS; DM II Interval history: Pt remains on vent support. non-oliguric Objective - Exam Narrative Exam: Exam reviewed in chart d/t PPE preservation - Vital Signs Vital signs: Vital Signs - 12hr 07/02/20 07/02/20 07/03/20 23:00 23:02 00:00 Temperature Pulse Rate 86 86 78 Pulse Rate [ 76 From Monitor] Respiratory 19 17 16 Rate Blood Pressure 167/65 167/65 144/60 O2 Sat by Pulse 98 98 99 Oximetry 07/03/20 07/03/20 07/03/20 00:05 01:00 02:00 Temperature Pulse Rate 77 76 73 Pulse Rate [ From Monitor] Respiratory 18 18 Rate Blood Pressure 147/60 145/61 148/62 O2 Sat by Pulse 99 99 99 Oximetry 07/03/20 07/03/20 07/03/20 03:00 03:27 04:00 Temperature 99.8 F H Pulse Rate 74 74 Pulse Rate [ 75 From Monitor] Respiratory 18 20 Rate Blood Pressure 154/65 O2 Sat by Pulse 99 99 Oximetry 07/03/20 07/03/20 07/03/20 04:01 04:17 05:00 Temperature Pulse Rate 78 73 74 Pulse Rate [ From Monitor] Respiratory 20 16 Rate Blood Pressure 169/86 169/86 155/62 O2 Sat by Pulse 97 99 98 Oximetry 07/03/20 07/03/20 07/03/20 05:38 06:00 07:00 Temperature Pulse Rate 72 75 75 Pulse Rate [ From Monitor] Respiratory 18 18 Rate Blood Pressure 146/60 155/62 155/67 O2 Sat by Pulse 99 99 Oximetry 07/03/20 07/03/20 07/03/20 08:00 08:01 08:42 Temperature 98.5 F Pulse Rate 75 76 79 Pulse Rate [ 76 From Monitor] Respiratory 18 18 Rate Blood Pressure 157/63 157/63 O2 Sat by Pulse 98 99 99 Oximetry 07/03/20 07/03/20 07/03/20 08:47 09:00 09:05 Temperature Pulse Rate 78 86 86 Pulse Rate [ From Monitor] Respiratory 27 H Rate Blood Pressure 157/63 172/72 172/72 O2 Sat by Pulse 97 97 Oximetry 07/03/20 07/03/20 09:06 10:01 Temperature Pulse Rate 86 98 H Pulse Rate [ From Monitor] Respiratory 28 H Rate Blood Pressure 172/72 162/83 O2 Sat by Pulse 91 Oximetry - Lab 07/01/20 06:01 07/02/20 04:23 Most recent lab results ABG pH 7.414 pH Units (7.350-7.450) 07/03/20 03:49 ABG pCO2 37.9 mm Hg 07/03/20 03:49 ABG pO2 121.0 mm Hg (80.0-90.0) H 07/03/20 03:49 ABG HCO3 23.7 mmol/L (20.0-26.0) 07/03/20 03:49 ABG O2 Saturation 98.3 % (95.0-99.0) 07/03/20 03:49 Calcium 7.8 mg/dL (8.4-10.2) L 07/02/20 04:23 Urine Creatinine 82.2 mg/dL (0.1-20.0) H 06/06/20 04:00 Urine Sodium 20 mmol/L 06/06/20 04:00 Urine Total Protein 196 mg/dL (5-11.8) H 06/06/20 04:00 Medications & Allergies - Medications Allergies/Adverse Reactions: Allergies No Known Allergies Allergy (Verified 01/21/20 12:28) Home Medications: Home Medications Medication Instructions Recorded Confirmed Last Taken Type AtorvaSTATin [Lipitor] 20 mg PO QHS 05/12/20 05/29/20 Unknown History lisinopriL [Zestril TAB] 40 mg PO QDAY 05/12/20 05/29/20 Unknown History metFORMIN [Glucophage] 850 mg PO BID 05/12/20 05/29/20 Unknown History Acetaminophen [Acetaminophen TAB] 650 mg PO Q4H PRN tablet 05/13/20 05/29/20 Unknown Rx Dicyclomine [Bentyl] 20 mg PO BID #20 tablet 05/13/20 05/29/20 Unknown Rx Famotidine [Pepcid] 20 mg PO BID #30 tablet 05/13/20 05/29/20 Unknown Rx carvediloL [Coreg] 6.25 mg PO BID #60 05/13/20 05/29/20 Unknown Rx Active Medications: Generic Name Dose Route Start Last Admin Trade Name Freq PRN Reason Stop Dose Admin Acetaminophen 650 mg 06/09/20 10:57 06/29/20 21:18 Tylenol FEEDTUBE 650 mg Q6H PRN Administration Fever >101 Amlodipine Besylate 10 mg 06/02/20 11:00 07/03/20 09:05 Amlodipine PO 10 mg DAILY NELSON Administration Lipase/Protease/Amylase 1 each 05/29/20 13:39 06/24/20 22:51 Pancremu Lawson 10,500 Unit FEEDTUBE 1 each PRN PRN Administration For Clogged Feeding Tube Carvedilol 12.5 mg 06/03/20 10:00 07/03/20 09:05 Coreg PO 12.5 mg BID NELSON Administration Clonidine HCl 0.2 mg 06/23/20 22:00 07/03/20 09:06 Catapres PO 0.2 mg Q12HR NELSON Administration Glycopyrrolate 2 mg 06/09/20 14:00 07/03/20 09:05 Glycopyrrolate PO 2 mg TID NELSON Administration Heparin Sodium (Porcine) 5,000 unit 06/30/20 14:00 07/03/20 05:38 Heparin SUB-Q 5,000 unit Q8HR NELSON Administration Hydralazine HCl 50 mg 06/03/20 09:00 07/03/20 05:38 Apresoline PO 50 mg Q8HR NELSON Administration Hydrophilic Ointment 1 applic 05/28/20 13:49 Vaseline Lip Therapy TP Q2HR PRN Dry Lips Vasopressin 20 unit/ Sodium 101 mls @ 9.09 mls/hr 06/26/20 19:00 06/26/20 19:30 Chloride IV 0 units/min TITR NELSON 0 mls/hr Titration Protocol 0.03 UNITS/MIN Norepinephrine 4 mg in 250 mls @ 7.5 mls/hr 06/26/20 19:00 06/26/20 20:06 Levophed Drip 4 Mg/Ns 250 Ml IV 0 mcg/min TITR NELSON 0 mls/hr Titration Protocol 2 MCG/MIN Phenylephrine HCl 100 mg/ 100 mls @ 3 mls/hr 06/26/20 18:15 Sodium Chloride IV TITR NELSON Protocol 50 MCG/MIN Cefepime HCl 2 gm in 100 mls @ 200 mls/hr 06/28/20 13:00 07/03/20 05:38 Cefepime/Ns 2 Gm/100 Ml IV 07/04/20 12:59 200 mls/hr Q8HR NELSON Administration Protocol Sodium Chloride 500 mls @ 5 mls/hr 06/30/20 22:00 06/30/20 21:42 Nacl 0.9% 500 Ml IV 5 mls/hr DIRECT NELSON Administration Insulin Glargine 10 units 06/08/20 22:00 07/02/20 22:10 Lantus SUB-Q 10 units QHS NELSON Administration Insulin Human Lispro 0 unit 05/29/20 18:00 07/03/20 06:05 Humalog SUB-Q Not Given Q6H NELSON Protocol Labetalol HCl 20 mg 06/03/20 09:00 07/02/20 13:21 Labetalol IV 20 mg Q4H PRN Administration HYPERTENSION Lansoprazole 30 mg 06/05/20 22:00 07/03/20 09:04 Prevacid Solutab FEEDTUBE 30 mg BID NELSON Administration Levetiracetam 500 mg 06/16/20 11:00 07/03/20 09:04 Keppra PO 500 mg BID NELSON Administration Lidocaine HCl 15 ml 06/26/20 20:00 07/03/20 09:04 Magic Mouthwash PO 15 ml TID NELSON Administration Metoclopramide HCl 10 mg 06/10/20 20:00 07/03/20 09:05 Reglan IV 10 mg Q6H NELSON Administration Modafinil 100 mg 07/02/20 20:00 07/03/20 09:05 Provigil PO 100 mg DAILY NELSON Administration Multi-Ingred Cream/Lotion/Oil/Oint 1 applic 05/28/20 13:49 Artificial Tears Ophth Oint OU Q4HR PRN Dry Eye(s) Ondansetron HCl 4 mg 06/02/20 09:00 06/09/20 16:48 Zofran IV 4 mg Q8H PRN Administration Nausea And Vomiting Scopolamine 1 each 06/05/20 14:00 07/02/20 09:33 Transderm-Scop TD 1 each Q3D NELSON Administration Senna 17.6 mg 06/03/20 10:00 07/03/20 09:06 Senokot FEEDTUBE Not Given BID NELSON Simple Syrup 15 ml 05/29/20 13:39 Simple Syrup FEEDTUBE PRN PRN Hypoglycemia Simple Syrup 30 ml 05/29/20 13:39 Simple Syrup FEEDTUBE PRN PRN Hypoglycemia Sodium Bicarbonate 325 mg 05/29/20 13:39 Sodium Bicarbonate FEEDTUBE PRN PRN For Clogged Feeding Tube Sodium Chloride 10 ml 05/28/20 22:00 07/03/20 09:04 Sodium Chloride Flush Syringe 10 Ml IV 10 ml BID NELSON Administration Sodium Chloride 10 ml 05/28/20 19:08 06/16/20 17:50 Sodium Chloride Flush Syringe 10 Ml IV 10 ml PRN PRN Administration LINE FLUSH
[2020-07-03] MEDS ORDERED: LIPASE 10,500/PROTEASE 25,000/AMYLASE 43,750 (UNITS) DR CAP FEEDTUBE PRN (11:25)
[2020-07-03] MEDS ORDERED: SODIUM BICARBONATE 325 MG TAB FEEDTUBE PRN (11:25)
[2020-07-03] MEDS ORDERED: SIMPLE SYRUP 15 ML FEEDTUBE PRN ×2 (11:25)
--- NOTE | 2020-07-03 13:22 | Progress Note ---
Assessment and Plan Acute hypoxemic respiratory failure on MVS Coronavirus-19 infection. Bilateral pulmonary infiltrates, bilateral pneumonia plus likely element of Pulmonary edema. Bilateral pulmonary edema. Bilateral pleural effusions. History of congestive heart failure. Morbid obesity. History of pulmonary hypertension. History of hypertension. Diabetes. Obesity hypoventilation syndrome. Elevated serum inflammatory markers to include D-dimers and LDH levels. Hyperkalemia at presentation. Metabolic acidosis. Oropharyngeal dysphagia. - am CXR ordered - placed back on PSV trial; get ABG after 2 hours - resume tube feeds at 20 ml's/hr (increase by 10ml's/hr every 12 hours till back at goal rate) - continue Reglan - contginue Modafinil re: lethargy / somnolence - continue Pepcid - continue care as below otherwise; - Daily SAT and SBT assessment as tolerated - continue to wean supplemental oxygen for target O2 sat's > 90% acutely - VAP bundle addressed - continue lung protective strategies - continue bronchodilators with pulmonary hygiene per RT - wean per pulmonary driven protocols otherwise - continue accuchecks resumed with glycemic control per SSI (While critically ill target blood glucose of 140-180 mg/dL; avoid hypoglycemia) - sedation prn for target RASS 0 to -1 - continue to avoid benzodiazepine's, reduce the possibility of delirium - completed AB's per ID rec's - prn analgesia per CPOT score - Maintenance of sleep-wake cycle, avoid delirium - continue enteral nutritional support at goal rate as tolerated - G.I. & VTE prophylaxis with heparin & famotidine - PT/OT/ROM exercises - continue mobility protocols for pressure ulcer prophylaxis - Monitor hemodynamics closely - continue other care per attending / other consultants - discharge planning ongoing concurrently (LTAC evaluation is appropriate) .... Re-evaluate in am & prn CONDITION: CRITICAL PROGNOSIS: GUARDED CODE STATUS: FULL CODE The high probability of a clinically significant, sudden or life-threatening deterioration of the [respiratory, cardiovascular, GI & neurologic] system(s) required my full and direct attention, intervention and personal management. The aggregate critical care time was [32] minutes without overlap. Time includes spent on; [x] Data Review and interpretation [x] Patient assessment and monitoring of vital signs [x] Documentation [x] Medication orders and management Subjective Date of service: 07/03/20 Principal diagnosis: Ac hypoxemic resp failure; COVID-19; pneumonia; CHF; Pulm HTN; OHS; DM II Interval history: Patient is seen today for: Ac hypoxemic resp failure; Coronavirus-19 infection; pneumonia; Pulmonary edema; Bilateral pleural effusions; CHF; Morbid obesity; pulmonary hypertension; OHS; DM II Seen and examined at bedside; 24hour events reviewed; nursing and respiratory care staff consulted; no adverse overnight events reported to me; resting peacefully in bed; remains on MVS; tolerated a few hours on SBT earlier but desaturated and tired out; FiO2 at 30% though; no emesis or overt aspiration; AMS is persistent; tube feeds held due to low volume emesis X 1 Objective Vital Signs - 12hr 07/03/20 07/03/20 07/03/20 02:00 03:00 03:27 Temperature 99.8 F H Pulse Rate 73 74 Pulse Rate [ From Monitor] Respiratory 18 18 Rate Blood Pressure 148/62 154/65 O2 Sat by Pulse 99 99 Oximetry 07/03/20 07/03/20 07/03/20 04:00 04:01 04:17 Temperature Pulse Rate 74 78 73 Pulse Rate [ 75 From Monitor] Respiratory 20 20 Rate Blood Pressure 169/86 169/86 O2 Sat by Pulse 99 97 99 Oximetry 07/03/20 07/03/20 07/03/20 05:00 05:38 06:00 Temperature Pulse Rate 74 72 75 Pulse Rate [ From Monitor] Respiratory 16 18 Rate Blood Pressure 155/62 146/60 155/62 O2 Sat by Pulse 98 99 Oximetry 07/03/20 07/03/20 07/03/20 07:00 08:00 08:01 Temperature 98.5 F Pulse Rate 75 75 76 Pulse Rate [ 76 From Monitor] Respiratory 18 18 18 Rate Blood Pressure 155/67 157/63 O2 Sat by Pulse 99 98 99 Oximetry 07/03/20 07/03/20 07/03/20 08:42 08:47 09:00 Temperature Pulse Rate 79 78 86 Pulse Rate [ From Monitor] Respiratory 27 H Rate Blood Pressure 157/63 157/63 172/72 O2 Sat by Pulse 99 97 97 Oximetry 07/03/20 07/03/20 07/03/20 09:05 09:06 10:01 Temperature Pulse Rate 86 86 98 H Pulse Rate [ From Monitor] Respiratory 28 H Rate Blood Pressure 172/72 172/72 162/83 O2 Sat by Pulse 91 Oximetry 09/25/20 09/25/20 09/25/20 11:01 11:33 12:00 Temperature 98.6 F Pulse Rate 88 87 75 Pulse Rate [ 75 From Monitor] Respiratory 23 18 Rate Blood Pressure 140/51 123/53 110/46 O2 Sat by Pulse 87 100 98 Oximetry Constitutional: appears uncomfortable, other (elderly looking obese female on HFNC with mildly increased respiratory effort at rest on MVS) Eyes: non-icteric ENT: oropharynx dry, other (ETT 23-24 cm AYAN) Neck: supple, no lymphadenopathy, no JVD, other (large neck circumference) Effort: mildly labored Ascultation: Bilateral: diminished breath sounds, rhonchi (scant) Percussion: Bilateral: not dull Cardiovascular: regular rate and rhythm, other (S1,S2) Gastrointestinal: normoactive bowel sounds, soft, non-tender, non-distended Integumentary: normal Extremities: no cyanosis, no edema, pink and warm, pulses normal, no ischemia or petechiae Neurologic: pupils equal and round, unable to assess, other (lethargic to obtunded) Psychiatric: other (unable to assess re: AMS) CBC and BMP: 07/01/20 06:01 07/02/20 04:23 ABG, PT/INR, D-dimer: ABG ABG pH 7.414 pH Units (7.350-7.450) 07/03/20 03:49 POC ABG pCO2 35.8 mmHg (32.0-48.0) 07/01/20 05:02 ABG pCO2 37.9 mm Hg 07/03/20 03:49 POC ABG pO2 90.8 mmHg (83-108) 07/01/20 05:02 ABG pO2 121.0 mm Hg (80.0-90.0) H 07/03/20 03:49 POC ABG HCO3 22.1 07/01/20 05:02 ABG O2 Saturation 98.3 % (95.0-99.0) 07/03/20 03:49 PT/INR, D-dimer PT 14.2 Sec. (12.2-14.9) 05/29/20 15:10 INR 1.08 (0.87-1.13) 05/29/20 15:10 D-Dimer 2310.15 ng/mlDDU (0-234) H 06/29/20 14:45 Abnormal lab findings: Abnormal Labs 05/28/20 05/28/20 05/28/20 13:29 13:47 13:47 WBC RBC Hgb Hct MCHC RDW 15.3 H Lymph % (Auto) [place] % (Auto) Eos % (Auto) Lymph # [place] # Seg Neutrophils % Seg Neuts % (Manual) Lymphocytes % (Manual) Seg Neutrophils # Seg Neutrophils # Man Lymphocytes # (Manual) Eosinophils % (Manual) Monocytes # (Manual) Eosinophils # (Manual) D-Dimer Heparin Anti-Xa Level ABG pH POC ABG pCO2 POC ABG pO2 ABG pO2 ABG HCO3 ABG O2 Saturation ABG Base Excess ABG Hemoglobin ABG Oxyhemoglobin VBG pH Oxyhemoglobin Sodium Potassium 6.6 H* Chloride 109.2 H Carbon Dioxide 17 L BUN 29 H Creatinine 1.3 H Glucose 265 H POC Glucose 248 H Lactic Acid Calcium 8.1 L Ferritin AST 63 H Alkaline Phosphatase Lactate Dehydrogenase Total Creatine Kinase 301 H CK-MB (CK-2) 4.3 H C-Reactive Protein Total Protein 5.4 L Albumin 2.6 L Troponin T HDL Cholesterol Urine WBC (Auto) Urine Creatinine Urine Total Protein Coronavirus (PCR) Crossmatch 05/28/20 05/28/20 05/28/20 13:47 13:47 14:46 WBC RBC Hgb Hct MCHC RDW Lymph % (Auto) [place] % (Auto) Eos % (Auto) Lymph # [place] # Seg Neutrophils % Seg Neuts % (Manual) Lymphocytes % (Manual) Seg Neutrophils # Seg Neutrophils # Man Lymphocytes # (Manual) Eosinophils % (Manual) Monocytes # (Manual) Eosinophils # (Manual) D-Dimer Heparin Anti-Xa Level ABG pH POC ABG pCO2 POC ABG pO2 ABG pO2 ABG HCO3 ABG O2 Saturation ABG Base Excess ABG Hemoglobin ABG Oxyhemoglobin VBG pH 7.152 L* Oxyhemoglobin Sodium Potassium 7.2 H* Chloride Carbon Dioxide BUN Creatinine Glucose POC Glucose Lactic Acid 3.40 H* Calcium Ferritin AST Alkaline Phosphatase Lactate Dehydrogenase Total Creatine Kinase CK-MB (CK-2) C-Reactive Protein Total Protein Albumin Troponin T HDL Cholesterol Urine WBC (Auto) Urine Creatinine Urine Total Protein Coronavirus (PCR) Crossmatch 05/28/20 05/28/20 05/28/20 15:33 15:33 15:51 WBC RBC Hgb Hct MCHC RDW Lymph % (Auto) [place] % (Auto) Eos % (Auto) Lymph # [place] # Seg Neutrophils % Seg Neuts % (Manual) Lymphocytes % (Manual) Seg Neutrophils # Seg Neutrophils # Man Lymphocytes # (Manual) Eosinophils % (Manual) Monocytes # (Manual) Eosinophils # (Manual) D-Dimer 8780.43 H Heparin Anti-Xa Level ABG pH 7.284 L POC ABG pCO2 POC ABG pO2 ABG pO2 273.0 H ABG HCO3 ABG O2 Saturation 99.4 H ABG Base Excess -6.1 L ABG Hemoglobin 17.2 H ABG Oxyhemoglobin VBG pH Oxyhemoglobin Sodium Potassium Chloride Carbon Dioxide BUN Creatinine Glucose 152 H POC Glucose Lactic Acid Calcium Ferritin AST Alkaline Phosphatase Lactate Dehydrogenase 365 H Total Creatine Kinase CK-MB (CK-2) C-Reactive Protein Total Protein Albumin Troponin T HDL Cholesterol Urine WBC (Auto) Urine Creatinine Urine Total Protein Coronavirus (PCR) Crossmatch 05/28/20 05/28/20 05/28/20 16:30 20:41 23:20 WBC RBC Hgb Hct MCHC RDW Lymph % (Auto) [place] % (Auto) Eos % (Auto) Lymph # [place] # Seg Neutrophils % Seg Neuts % (Manual) Lymphocytes % (Manual) Seg Neutrophils # Seg Neutrophils # Man Lymphocytes # (Manual) Eosinophils % (Manual) Monocytes # (Manual) Eosinophils # (Manual) D-Dimer Heparin Anti-Xa Level ABG pH POC ABG pCO2 POC ABG pO2 ABG pO2 ABG HCO3 ABG O2 Saturation ABG Base Excess ABG Hemoglobin ABG Oxyhemoglobin VBG pH Oxyhemoglobin Sodium Potassium Chloride Carbon Dioxide BUN Creatinine Glucose POC Glucose 225 H 224 H Lactic Acid Calcium Ferritin AST Alkaline Phosphatase Lactate Dehydrogenase Total Creatine Kinase CK-MB (CK-2) C-Reactive Protein Total Protein Albumin Troponin T HDL Cholesterol Urine WBC (Auto) 17.0 H Urine Creatinine Urine Total Protein Coronavirus (PCR) Crossmatch 05/28/20 05/29/20 05/29/20 Unknown 04:35 04:43 WBC RBC 3.48 L Hgb 9.8 L Hct 29.4 L MCHC RDW 16.0 H Lymph % (Auto) 7.4 L [place] % (Auto) Eos % (Auto) Lymph # 0.7 L [place] # Seg Neutrophils % 89.1 H Seg Neuts % (Manual) Lymphocytes % (Manual) Seg Neutrophils # 8.1 H Seg Neutrophils # Man Lymphocytes # (Manual) Eosinophils % (Manual) Monocytes # (Manual) Eosinophils # (Manual) D-Dimer Heparin Anti-Xa Level ABG pH POC ABG pCO2 POC ABG pO2 ABG pO2 ABG HCO3 19.3 L ABG O2 Saturation ABG Base Excess -4.5 L ABG Hemoglobin 9.7 L ABG Oxyhemoglobin VBG pH Oxyhemoglobin Sodium Potassium Chloride Carbon Dioxide BUN Creatinine Glucose POC Glucose Lactic Acid Calcium Ferritin AST Alkaline Phosphatase Lactate Dehydrogenase Total Creatine Kinase CK-MB (CK-2) C-Reactive Protein Total Protein Albumin Troponin T HDL Cholesterol Urine WBC (Auto) Urine Creatinine Urine Total Protein Coronavirus (PCR) Positive A Crossmatch 05/29/20 05/29/20 05/29/20 04:43 15:10 17:17 WBC RBC Hgb 9.3 L Hct 28.7 L MCHC RDW Lymph % (Auto) [place] % (Auto) Eos % (Auto) Lymph # [place] # Seg Neutrophils % Seg Neuts % (Manual) Lymphocytes % (Manual) Seg Neutrophils # Seg Neutrophils # Man Lymphocytes # (Manual) Eosinophils % (Manual) Monocytes # (Manual) Eosinophils # (Manual) D-Dimer Heparin Anti-Xa Level ABG pH POC ABG pCO2 POC ABG pO2 ABG pO2 ABG HCO3 ABG O2 Saturation ABG Base Excess ABG Hemoglobin ABG Oxyhemoglobin VBG pH Oxyhemoglobin Sodium Potassium Chloride 110.2 H Carbon Dioxide 18 L BUN 32 H Creatinine 1.4 H Glucose 180 H POC Glucose 147 H Lactic Acid Calcium Ferritin AST Alkaline Phosphatase Lactate Dehydrogenase Total Creatine Kinase CK-MB (CK-2) C-Reactive Protein Total Protein Albumin Troponin T HDL Cholesterol Urine WBC (Auto) Urine Creatinine Urine Total Protein Coronavirus (PCR) Crossmatch 05/30/20 05/30/20 05/30/20 00:08 00:12 04:15 WBC RBC Hgb Hct MCHC RDW Lymph % (Auto) [place] % (Auto) Eos % (Auto) Lymph # [place] # Seg Neutrophils % Seg Neuts % (Manual) Lymphocytes % (Manual) Seg Neutrophils # Seg Neutrophils # Man Lymphocytes # (Manual) Eosinophils % (Manual) Monocytes # (Manual) Eosinophils # (Manual) D-Dimer Heparin Anti-Xa Level 0.71 H ABG pH 7.460 H POC ABG pCO2 POC ABG pO2 ABG pO2 106.0 H ABG HCO3 18.9 L ABG O2 Saturation ABG Base Excess -4.4 L ABG Hemoglobin 6.8 L ABG Oxyhemoglobin VBG pH Oxyhemoglobin Sodium Potassium Chloride Carbon Dioxide BUN Creatinine Glucose POC Glucose 195 H Lactic Acid Calcium Ferritin AST Alkaline Phosphatase Lactate Dehydrogenase Total Creatine Kinase CK-MB (CK-2) C-Reactive Protein Total Protein Albumin Troponin T HDL Cholesterol Urine WBC (Auto) Urine Creatinine Urine Total Protein Coronavirus (PCR) Crossmatch 05/30/20 05/30/20 05/30/20 06:07 08:37 12:33 WBC RBC Hgb Hct MCHC RDW Lymph % (Auto) [place] % (Auto) Eos % (Auto) Lymph # [place] # Seg Neutrophils % Seg Neuts % (Manual) Lymphocytes % (Manual) Seg Neutrophils # Seg Neutrophils # Man Lymphocytes # (Manual) Eosinophils % (Manual) Monocytes # (Manual) Eosinophils # (Manual) D-Dimer Heparin Anti-Xa Level 0.85 H ABG pH POC ABG pCO2 POC ABG pO2 ABG pO2 ABG HCO3 ABG O2 Saturation ABG Base Excess ABG Hemoglobin ABG Oxyhemoglobin VBG pH Oxyhemoglobin Sodium Potassium Chloride Carbon Dioxide BUN Creatinine Glucose POC Glucose 182 H 187 H Lactic Acid Calcium Ferritin AST Alkaline Phosphatase Lactate Dehydrogenase Total Creatine Kinase CK-MB (CK-2) C-Reactive Protein Total Protein Albumin Troponin T HDL Cholesterol Urine WBC (Auto) Urine Creatinine Urine Total Protein Coronavirus (PCR) Crossmatch 05/30/20 05/30/20 05/30/20 15:58 17:57 23:36 WBC RBC Hgb Hct MCHC RDW Lymph % (Auto) [place] % (Auto) Eos % (Auto) Lymph # [place] # Seg Neutrophils % Seg Neuts % (Manual) Lymphocytes % (Manual) Seg Neutrophils # Seg Neutrophils # Man Lymphocytes # (Manual) Eosinophils % (Manual) Monocytes # (Manual) Eosinophils # (Manual) D-Dimer Heparin Anti-Xa Level 1.03 H ABG pH POC ABG pCO2 POC ABG pO2 ABG pO2 ABG HCO3 ABG O2 Saturation ABG Base Excess ABG Hemoglobin ABG Oxyhemoglobin VBG pH Oxyhemoglobin Sodium Potassium Chloride Carbon Dioxide BUN Creatinine Glucose POC Glucose 208 H 185 H Lactic Acid Calcium Ferritin AST Alkaline Phosphatase Lactate Dehydrogenase Total Creatine Kinase CK-MB (CK-2) C-Reactive Protein Total Protein Albumin Troponin T HDL Cholesterol Urine WBC (Auto) Urine Creatinine Urine Total Protein Coronavirus (PCR) Crossmatch 05/31/20 05/31/20 05/31/20 02:16 03:55 06:16 WBC RBC Hgb 9.2 L Hct 27.5 L MCHC RDW Lymph % (Auto) [place] % (Auto) Eos % (Auto) Lymph # [place] # Seg Neutrophils % Seg Neuts % (Manual) Lymphocytes % (Manual) Seg Neutrophils # Seg Neutrophils # Man Lymphocytes # (Manual) Eosinophils % (Manual) Monocytes # (Manual) Eosinophils # (Manual) D-Dimer Heparin Anti-Xa Level ABG pH POC ABG pCO2 POC ABG pO2 ABG pO2 94.7 H ABG HCO3 18.6 L ABG O2 Saturation ABG Base Excess -5.5 L ABG Hemoglobin 7.9 L ABG Oxyhemoglobin VBG pH Oxyhemoglobin Sodium Potassium Chloride Carbon Dioxide BUN Creatinine Glucose POC Glucose 160 H Lactic Acid Calcium Ferritin AST Alkaline Phosphatase Lactate Dehydrogenase Total Creatine Kinase CK-MB (CK-2) C-Reactive Protein Total Protein Albumin Troponin T HDL Cholesterol Urine WBC (Auto) Urine Creatinine Urine Total Protein Coronavirus (PCR) Crossmatch 05/31/20 05/31/20 05/31/20 12:20 13:03 18:13 WBC RBC Hgb Hct MCHC RDW Lymph % (Auto) [place] % (Auto) Eos % (Auto) Lymph # [place] # Seg Neutrophils % Seg Neuts % (Manual) Lymphocytes % (Manual) Seg Neutrophils # Seg Neutrophils # Man Lymphocytes # (Manual) Eosinophils % (Manual) Monocytes # (Manual) Eosinophils # (Manual) D-Dimer Heparin Anti-Xa Level ABG pH POC ABG pCO2 POC ABG pO2 ABG pO2 ABG HCO3 ABG O2 Saturation ABG Base Excess ABG Hemoglobin ABG Oxyhemoglobin VBG pH Oxyhemoglobin Sodium Potassium Chloride Carbon Dioxide 18 L BUN 48 H Creatinine 1.6 H Glucose 115 H POC Glucose 128 H 159 H Lactic Acid Calcium 8.3 L Ferritin AST Alkaline Phosphatase Lactate Dehydrogenase Total Creatine Kinase CK-MB (CK-2) C-Reactive Protein Total Protein 5.4 L Albumin 2.4 L Troponin T HDL Cholesterol Urine WBC (Auto) Urine Creatinine Urine Total Protein Coronavirus (PCR) Crossmatch 05/31/20 06/01/20 06/01/20 23:51 04:00 05:48 WBC RBC Hgb Hct MCHC RDW Lymph % (Auto) [place] % (Auto) Eos % (Auto) Lymph # [place] # Seg Neutrophils % Seg Neuts % (Manual) Lymphocytes % (Manual) Seg Neutrophils # Seg Neutrophils # Man Lymphocytes # (Manual) Eosinophils % (Manual) Monocytes # (Manual) Eosinophils # (Manual) D-Dimer Heparin Anti-Xa Level ABG pH POC ABG pCO2 POC ABG pO2 ABG pO2 109.8 H ABG HCO3 18.8 L ABG O2 Saturation ABG Base Excess -5.9 L ABG Hemoglobin 7.8 L ABG Oxyhemoglobin VBG pH Oxyhemoglobin Sodium Potassium Chloride Carbon Dioxide BUN Creatinine Glucose POC Glucose 171 H 133 H Lactic Acid Calcium Ferritin AST Alkaline Phosphatase Lactate Dehydrogenase Total Creatine Kinase CK-MB (CK-2) C-Reactive Protein Total Protein Albumin Troponin T HDL Cholesterol Urine WBC (Auto) Urine Creatinine Urine Total Protein Coronavirus (PCR) Crossmatch 06/01/20 06/01/20 06/02/20 12:28 17:29 00:08 WBC RBC Hgb Hct MCHC RDW Lymph % (Auto) [place] % (Auto) Eos % (Auto) Lymph # [place] # Seg Neutrophils % Seg Neuts % (Manual) Lymphocytes % (Manual) Seg Neutrophils # Seg Neutrophils # Man Lymphocytes # (Manual) Eosinophils % (Manual) Monocytes # (Manual) Eosinophils # (Manual) D-Dimer Heparin Anti-Xa Level ABG pH POC ABG pCO2 POC ABG pO2 ABG pO2 ABG HCO3 ABG O2 Saturation ABG Base Excess ABG Hemoglobin ABG Oxyhemoglobin VBG pH Oxyhemoglobin Sodium Potassium Chloride Carbon Dioxide BUN Creatinine Glucose POC Glucose 199 H 209 H 162 H Lactic Acid Calcium Ferritin AST Alkaline Phosphatase Lactate Dehydrogenase Total Creatine Kinase CK-MB (CK-2) C-Reactive Protein Total Protein Albumin Troponin T HDL Cholesterol Urine WBC (Auto) Urine Creatinine Urine Total Protein Coronavirus (PCR) Crossmatch 06/02/20 06/02/20 06/02/20 04:20 04:20 04:44 WBC RBC Hgb 10.0 L Hct MCHC RDW Lymph % (Auto) [place] % (Auto) Eos % (Auto) Lymph # [place] # Seg Neutrophils % Seg Neuts % (Manual) Lymphocytes % (Manual) Seg Neutrophils # Seg Neutrophils # Man Lymphocytes # (Manual) Eosinophils % (Manual) Monocytes # (Manual) Eosinophils # (Manual) D-Dimer Heparin Anti-Xa Level 0.10 L ABG pH POC ABG pCO2 POC ABG pO2 ABG pO2 150.6 H ABG HCO3 ABG O2 Saturation ABG Base Excess -4.1 L ABG Hemoglobin 11.8 L ABG Oxyhemoglobin VBG pH Oxyhemoglobin Sodium Potassium Chloride Carbon Dioxide BUN Creatinine Glucose POC Glucose Lactic Acid Calcium Ferritin AST Alkaline Phosphatase Lactate Dehydrogenase Total Creatine Kinase CK-MB (CK-2) C-Reactive Protein Total Protein Albumin Troponin T HDL Cholesterol Urine WBC (Auto) Urine Creatinine Urine Total Protein Coronavirus (PCR) Crossmatch 06/02/20 06/02/20 06/02/20 05:53 12:04 13:49 WBC RBC Hgb Hct MCHC RDW Lymph % (Auto) [place] % (Auto) Eos % (Auto) Lymph # [place] # Seg Neutrophils % Seg Neuts % (Manual) Lymphocytes % (Manual) Seg Neutrophils # Seg Neutrophils # Man Lymphocytes # (Manual) Eosinophils % (Manual) Monocytes # (Manual) Eosinophils # (Manual) D-Dimer Heparin Anti-Xa Level 0.28 L ABG pH POC ABG pCO2 POC ABG pO2 ABG pO2 ABG HCO3 ABG O2 Saturation ABG Base Excess ABG Hemoglobin ABG Oxyhemoglobin VBG pH Oxyhemoglobin Sodium Potassium Chloride Carbon Dioxide BUN Creatinine Glucose POC Glucose 149 H 220 H Lactic Acid Calcium Ferritin AST Alkaline Phosphatase Lactate Dehydrogenase Total Creatine Kinase CK-MB (CK-2) C-Reactive Protein Total Protein Albumin Troponin T HDL Cholesterol Urine WBC (Auto) Urine Creatinine Urine Total Protein Coronavirus (PCR) Crossmatch 06/02/20 06/02/20 06/03/20 13:49 18:31 00:42 WBC RBC Hgb Hct MCHC RDW Lymph % (Auto) [place] % (Auto) Eos % (Auto) Lymph # [place] # Seg Neutrophils % Seg Neuts % (Manual) Lymphocytes % (Manual) Seg Neutrophils # Seg Neutrophils # Man Lymphocytes # (Manual) Eosinophils % (Manual) Monocytes # (Manual) Eosinophils # (Manual) D-Dimer 769.68 H Heparin Anti-Xa Level ABG pH POC ABG pCO2 POC ABG pO2 ABG pO2 ABG HCO3 ABG O2 Saturation ABG Base Excess ABG Hemoglobin ABG Oxyhemoglobin VBG pH Oxyhemoglobin Sodium Potassium Chloride Carbon Dioxide BUN Creatinine Glucose POC Glucose 225 H 212 H Lactic Acid Calcium Ferritin AST Alkaline Phosphatase Lactate Dehydrogenase Total Creatine Kinase CK-MB (CK-2) C-Reactive Protein Total Protein Albumin Troponin T HDL Cholesterol Urine WBC (Auto) Urine Creatinine Urine Total Protein Coronavirus (PCR) Crossmatch 06/03/20 06/03/20 06/03/20 05:16 05:16 05:25 WBC 11.4 H RBC Hgb Hct MCHC RDW 16.4 H Lymph % (Auto) [place] % (Auto) Eos % (Auto) Lymph # [place] # Seg Neutrophils % Seg Neuts % (Manual) Lymphocytes % (Manual) Seg Neutrophils # Seg Neutrophils # Man Lymphocytes # (Manual) Eosinophils % (Manual) Monocytes # (Manual) Eosinophils # (Manual) D-Dimer Heparin Anti-Xa Level ABG pH POC ABG pCO2 POC ABG pO2 ABG pO2 160.9 H ABG HCO3 19.4 L ABG O2 Saturation ABG Base Excess -4.9 L ABG Hemoglobin 7.0 L ABG Oxyhemoglobin VBG pH Oxyhemoglobin Sodium Potassium Chloride Carbon Dioxide 18 L BUN 65 H Creatinine 2.0 H Glucose 175 H POC Glucose Lactic Acid Calcium 8.0 L Ferritin AST Alkaline Phosphatase Lactate Dehydrogenase Total Creatine Kinase CK-MB (CK-2) C-Reactive Protein Total Protein 5.5 L Albumin 2.2 L Troponin T HDL Cholesterol Urine WBC (Auto) Urine Creatinine Urine Total Protein Coronavirus (PCR) Crossmatch 06/03/20 06/03/20 06/03/20 06:07 11:58 18:24 WBC RBC Hgb Hct MCHC RDW Lymph % (Auto) [place] % (Auto) Eos % (Auto) Lymph # [place] # Seg Neutrophils % Seg Neuts % (Manual) Lymphocytes % (Manual) Seg Neutrophils # Seg Neutrophils # Man Lymphocytes # (Manual) Eosinophils % (Manual) Monocytes # (Manual) Eosinophils # (Manual) D-Dimer Heparin Anti-Xa Level ABG pH POC ABG pCO2 POC ABG pO2 ABG pO2 ABG HCO3 ABG O2 Saturation ABG Base Excess ABG Hemoglobin ABG Oxyhemoglobin VBG pH Oxyhemoglobin Sodium Potassium Chloride Carbon Dioxide BUN Creatinine Glucose POC Glucose 177 H 163 H 211 H Lactic Acid Calcium Ferritin AST Alkaline Phosphatase Lactate Dehydrogenase Total Creatine Kinase CK-MB (CK-2) C-Reactive Protein Total Protein Albumin Troponin T HDL Cholesterol Urine WBC (Auto) Urine Creatinine Urine Total Protein Coronavirus (PCR) Crossmatch 06/03/20 06/03/20 06/04/20 21:50 Unknown 00:26 WBC RBC Hgb Hct MCHC RDW Lymph % (Auto) [place] % (Auto) Eos % (Auto) Lymph # [place] # Seg Neutrophils % Seg Neuts % (Manual) Lymphocytes % (Manual) Seg Neutrophils # Seg Neutrophils # Man Lymphocytes # (Manual) Eosinophils % (Manual) Monocytes # (Manual) Eosinophils # (Manual) D-Dimer Heparin Anti-Xa Level ABG pH POC ABG pCO2 POC ABG pO2 ABG pO2 ABG HCO3 ABG O2 Saturation ABG Base Excess ABG Hemoglobin ABG Oxyhemoglobin VBG pH Oxyhemoglobin Sodium 135 L Potassium Chloride Carbon Dioxide 18 L BUN Creatinine Glucose POC Glucose 241 H Lactic Acid Calcium Ferritin AST Alkaline Phosphatase Lactate Dehydrogenase Total Creatine Kinase CK-MB (CK-2) C-Reactive Protein Total Protein Albumin Troponin T HDL Cholesterol Urine WBC (Auto) 11.0 H Urine Creatinine Urine Total Protein Coronavirus (PCR) Crossmatch 06/04/20 06/04/20 06/04/20 03:35 04:19 04:19 WBC RBC 3.15 L Hgb 8.9 L Hct 26.8 L D MCHC RDW 15.9 H Lymph % (Auto) 6.0 L [place] % (Auto) Eos % (Auto) Lymph # 0.6 L [place] # Seg Neutrophils % 86.6 H Seg Neuts % (Manual) Lymphocytes % (Manual) Seg Neutrophils # 9.1 H Seg Neutrophils # Man Lymphocytes # (Manual) Eosinophils % (Manual) Monocytes # (Manual) Eosinophils # (Manual) D-Dimer Heparin Anti-Xa Level ABG pH 7.331 L POC ABG pCO2 POC ABG pO2 ABG pO2 ABG HCO3 ABG O2 Saturation ABG Base Excess -4.7 L ABG Hemoglobin 11.0 L ABG Oxyhemoglobin VBG pH Oxyhemoglobin 93.9 L Sodium 136 L Potassium Chloride Carbon Dioxide 20 L BUN 73 H Creatinine 2.0 H Glucose 192 H POC Glucose Lactic Acid Calcium 8.0 L Ferritin AST Alkaline Phosphatase Lactate Dehydrogenase 271 H Total Creatine Kinase CK-MB (CK-2) C-Reactive Protein 2.20 H Total Protein 5.0 L Albumin 2.0 L Troponin T HDL Cholesterol Urine WBC (Auto) Urine Creatinine Urine Total Protein Coronavirus (PCR) Crossmatch 0806/04/20 06/04/20 04:19 05:51 11:48 WBC RBC Hgb Hct MCHC RDW Lymph % (Auto) [place] % (Auto) Eos % (Auto) Lymph # [place] # Seg Neutrophils % Seg Neuts % (Manual) Lymphocytes % (Manual) Seg Neutrophils # Seg Neutrophils # Man Lymphocytes # (Manual) Eosinophils % (Manual) Monocytes # (Manual) Eosinophils # (Manual) D-Dimer 414.52 H Heparin Anti-Xa Level ABG pH POC ABG pCO2 POC ABG pO2 ABG pO2 ABG HCO3 ABG O2 Saturation ABG Base Excess ABG Hemoglobin ABG Oxyhemoglobin VBG pH Oxyhemoglobin Sodium Potassium Chloride Carbon Dioxide BUN Creatinine Glucose POC Glucose 179 H 213 H Lactic Acid Calcium Ferritin AST Alkaline Phosphatase Lactate Dehydrogenase Total Creatine Kinase CK-MB (CK-2) C-Reactive Protein Total Protein Albumin Troponin T HDL Cholesterol Urine WBC (Auto) Urine Creatinine Urine Total Protein Coronavirus (PCR) Crossmatch 06/04/20 06/05/20 06/05/20 18:25 00:16 05:00 WBC RBC Hgb Hct MCHC RDW Lymph % (Auto) [place] % (Auto) Eos % (Auto) Lymph # [place] # Seg Neutrophils % Seg Neuts % (Manual) Lymphocytes % (Manual) Seg Neutrophils # Seg Neutrophils # Man Lymphocytes # (Manual) Eosinophils % (Manual) Monocytes # (Manual) Eosinophils # (Manual) D-Dimer Heparin Anti-Xa Level ABG pH 7.286 L POC ABG pCO2 POC ABG pO2 ABG pO2 96.2 H ABG HCO3 ABG O2 Saturation ABG Base Excess -6.3 L ABG Hemoglobin 8.8 L ABG Oxyhemoglobin VBG pH Oxyhemoglobin 94.8 L Sodium Potassium Chloride Carbon Dioxide BUN Creatinine Glucose POC Glucose 238 H 183 H Lactic Acid Calcium Ferritin AST Alkaline Phosphatase Lactate Dehydrogenase Total Creatine Kinase CK-MB (CK-2) C-Reactive Protein Total Protein Albumin Troponin T HDL Cholesterol Urine WBC (Auto) Urine Creatinine Urine Total Protein Coronavirus (PCR) Crossmatch 06/05/20 06/05/20 06/05/20 05:39 07:25 07:25 WBC RBC 2.97 L Hgb 8.7 L Hct 25.7 L MCHC RDW 16.0 H Lymph % (Auto) 8.8 L [place] % (Auto) 13.3 H Eos % (Auto) Lymph # 0.8 L [place] # 1.3 H Seg Neutrophils % 77.3 H Seg Neuts % (Manual) Lymphocytes % (Manual) Seg Neutrophils # Seg Neutrophils # Man Lymphocytes # (Manual) Eosinophils % (Manual) Monocytes # (Manual) Eosinophils # (Manual) D-Dimer Heparin Anti-Xa Level ABG pH POC ABG pCO2 POC ABG pO2 ABG pO2 ABG HCO3 ABG O2 Saturation ABG Base Excess ABG Hemoglobin ABG Oxyhemoglobin VBG pH Oxyhemoglobin Sodium 133 L Potassium Chloride Carbon Dioxide 17 L BUN 89 H Creatinine 2.8 H Glucose 176 H POC Glucose 149 H Lactic Acid Calcium 7.7 L Ferritin AST Alkaline Phosphatase Lactate Dehydrogenase Total Creatine Kinase CK-MB (CK-2) C-Reactive Protein Total Protein 4.2 L Albumin 1.9 L Troponin T HDL Cholesterol Urine WBC (Auto) Urine Creatinine Urine Total Protein Coronavirus (PCR) Crossmatch 06/05/20 06/05/20 06/05/20 07:25 12:05 15:41 WBC RBC Hgb Hct MCHC RDW Lymph % (Auto) [place] % (Auto) Eos % (Auto) Lymph # [place] # Seg Neutrophils % Seg Neuts % (Manual) Lymphocytes % (Manual) Seg Neutrophils # Seg Neutrophils # Man Lymphocytes # (Manual) Eosinophils % (Manual) Monocytes # (Manual) Eosinophils # (Manual) D-Dimer Heparin Anti-Xa Level 0.76 H 0.81 H ABG pH POC ABG pCO2 POC ABG pO2 ABG pO2 ABG HCO3 ABG O2 Saturation ABG Base Excess ABG Hemoglobin ABG Oxyhemoglobin VBG pH Oxyhemoglobin Sodium Potassium Chloride Carbon Dioxide BUN Creatinine Glucose POC Glucose 198 H Lactic Acid Calcium Ferritin AST Alkaline Phosphatase Lactate Dehydrogenase Total Creatine Kinase CK-MB (CK-2) C-Reactive Protein Total Protein Albumin Troponin T HDL Cholesterol Urine WBC (Auto) Urine Creatinine Urine Total Protein Coronavirus (PCR) Crossmatch 06/05/20 06/05/20 06/06/20 18:08 23:25 04:00 WBC RBC Hgb Hct MCHC RDW Lymph % (Auto) [place] % (Auto) Eos % (Auto) Lymph # [place] # Seg Neutrophils % Seg Neuts % (Manual) Lymphocytes % (Manual) Seg Neutrophils # Seg Neutrophils # Man Lymphocytes # (Manual) Eosinophils % (Manual) Monocytes # (Manual) Eosinophils # (Manual) D-Dimer Heparin Anti-Xa Level ABG pH POC ABG pCO2 POC ABG pO2 ABG pO2 ABG HCO3 ABG O2 Saturation ABG Base Excess ABG Hemoglobin ABG Oxyhemoglobin VBG pH Oxyhemoglobin Sodium Potassium Chloride Carbon Dioxide BUN Creatinine Glucose POC Glucose 223 H 169 H Lactic Acid Calcium Ferritin AST Alkaline Phosphatase Lactate Dehydrogenase Total Creatine Kinase CK-MB (CK-2) C-Reactive Protein Total Protein Albumin Troponin T HDL Cholesterol Urine WBC (Auto) 15.0 H Urine Creatinine Urine Total Protein Coronavirus (PCR) Crossmatch 06/06/20 06/06/20 06/06/20 04:00 05:33 05:38 WBC RBC 2.97 L Hgb 8.7 L Hct 26.8 L MCHC RDW 16.8 H Lymph % (Auto) [place] % (Auto) Eos % (Auto) Lymph # [place] # Seg Neutrophils % Seg Neuts % (Manual) Lymphocytes % (Manual) Seg Neutrophils # Seg Neutrophils # Man Lymphocytes # (Manual) Eosinophils % (Manual) Monocytes # (Manual) Eosinophils # (Manual) D-Dimer Heparin Anti-Xa Level ABG pH POC ABG pCO2 POC ABG pO2 ABG pO2 ABG HCO3 ABG O2 Saturation ABG Base Excess ABG Hemoglobin ABG Oxyhemoglobin VBG pH Oxyhemoglobin Sodium Potassium Chloride Carbon Dioxide BUN Creatinine Glucose POC Glucose 186 H Lactic Acid Calcium Ferritin AST Alkaline Phosphatase Lactate Dehydrogenase Total Creatine Kinase CK-MB (CK-2) C-Reactive Protein Total Protein Albumin Troponin T HDL Cholesterol Urine WBC (Auto) Urine Creatinine 82.2 H Urine Total Protein 196 H Coronavirus (PCR) Crossmatch 06/06/20 06/06/20 06/06/20 05:38 12:25 17:03 WBC RBC Hgb Hct MCHC RDW Lymph % (Auto) [place] % (Auto) Eos % (Auto) Lymph # [place] # Seg Neutrophils % Seg Neuts % (Manual) Lymphocytes % (Manual) Seg Neutrophils # Seg Neutrophils # Man Lymphocytes # (Manual) Eosinophils % (Manual) Monocytes # (Manual) Eosinophils # (Manual) D-Dimer Heparin Anti-Xa Level ABG pH POC ABG pCO2 POC ABG pO2 ABG pO2 ABG HCO3 ABG O2 Saturation ABG Base Excess ABG Hemoglobin ABG Oxyhemoglobin VBG pH Oxyhemoglobin Sodium 134 L Potassium 5.2 H Chloride Carbon Dioxide 18 L BUN 97 H Creatinine 2.5 H Glucose 193 H POC Glucose 239 H 252 H Lactic Acid Calcium 7.5 L Ferritin AST Alkaline Phosphatase Lactate Dehydrogenase Total Creatine Kinase CK-MB (CK-2) C-Reactive Protein Total Protein 4.1 L Albumin 1.9 L Troponin T HDL Cholesterol Urine WBC (Auto) Urine Creatinine Urine Total Protein Coronavirus (PCR) Crossmatch 06/07/20 06/07/20 06/07/20 00:16 01:49 04:00 WBC RBC 2.91 L Hgb 8.4 L Hct 25.0 L MCHC RDW 16.1 H Lymph % (Auto) 5.7 L [place] % (Auto) 10.5 H Eos % (Auto) Lymph # 0.6 L [place] # 1.1 H Seg Neutrophils % 83.6 H Seg Neuts % (Manual) Lymphocytes % (Manual) Seg Neutrophils # 9.1 H Seg Neutrophils # Man Lymphocytes # (Manual) Eosinophils % (Manual) Monocytes # (Manual) Eosinophils # (Manual) D-Dimer Heparin Anti-Xa Level 0.26 L ABG pH POC ABG pCO2 POC ABG pO2 ABG pO2 ABG HCO3 ABG O2 Saturation ABG Base Excess ABG Hemoglobin ABG Oxyhemoglobin VBG pH Oxyhemoglobin Sodium Potassium Chloride Carbon Dioxide BUN Creatinine Glucose POC Glucose 173 H Lactic Acid Calcium Ferritin AST Alkaline Phosphatase Lactate Dehydrogenase Total Creatine Kinase CK-MB (CK-2) C-Reactive Protein Total Protein Albumin Troponin T HDL Cholesterol Urine WBC (Auto) Urine Creatinine Urine Total Protein Coronavirus (PCR) Crossmatch 06/07/20 06/07/20 06/07/20 04:00 04:54 05:51 WBC RBC Hgb Hct MCHC RDW Lymph % (Auto) [place] % (Auto) Eos % (Auto) Lymph # [place] # Seg Neutrophils % Seg Neuts % (Manual) Lymphocytes % (Manual) Seg Neutrophils # Seg Neutrophils # Man Lymphocytes # (Manual) Eosinophils % (Manual) Monocytes # (Manual) Eosinophils # (Manual) D-Dimer Heparin Anti-Xa Level ABG pH 7.317 L POC ABG pCO2 POC ABG pO2 ABG pO2 71.4 L ABG HCO3 ABG O2 Saturation 94.3 L ABG Base Excess -4.8 L ABG Hemoglobin 7.1 L ABG Oxyhemoglobin VBG pH Oxyhemoglobin 92.2 L Sodium 133 L Potassium Chloride Carbon Dioxide 18 L BUN 100 H Creatinine 2.5 H Glucose 158 H POC Glucose 168 H Lactic Acid Calcium 7.6 L Ferritin AST Alkaline Phosphatase Lactate Dehydrogenase Total Creatine Kinase CK-MB (CK-2) C-Reactive Protein Total Protein 4.7 L Albumin 2.0 L Troponin T HDL Cholesterol Urine WBC (Auto) Urine Creatinine Urine Total Protein Coronavirus (PCR) Crossmatch 06/07/20 06/07/20 06/07/20 12:03 17:17 20:10 WBC RBC Hgb Hct MCHC RDW Lymph % (Auto) [place] % (Auto) Eos % (Auto) Lymph # [place] # Seg Neutrophils % Seg Neuts % (Manual) Lymphocytes % (Manual) Seg Neutrophils # Seg Neutrophils # Man Lymphocytes # (Manual) Eosinophils % (Manual) Monocytes # (Manual) Eosinophils # (Manual) D-Dimer Heparin Anti-Xa Level 0.17 L ABG pH POC ABG pCO2 POC ABG pO2 ABG pO2 ABG HCO3 ABG O2 Saturation ABG Base Excess ABG Hemoglobin ABG Oxyhemoglobin VBG pH Oxyhemoglobin Sodium Potassium Chloride Carbon Dioxide BUN Creatinine Glucose POC Glucose 276 H 281 H Lactic Acid Calcium Ferritin AST Alkaline Phosphatase Lactate Dehydrogenase Total Creatine Kinase CK-MB (CK-2) C-Reactive Protein Total Protein Albumin Troponin T HDL Cholesterol Urine WBC (Auto) Urine Creatinine Urine Total Protein Coronavirus (PCR) Crossmatch 06/08/20 06/08/20 06/08/20 00:02 04:47 04:47 WBC 16.4 H RBC 3.07 L Hgb 8.6 L Hct 26.5 L MCHC RDW 16.3 H Lymph % (Auto) [place] % (Auto) Eos % (Auto) Lymph # [place] # Seg Neutrophils % Seg Neuts % (Manual) 90.0 H Lymphocytes % (Manual) 3.0 L Seg Neutrophils # Seg Neutrophils # Man 14.8 H Lymphocytes # (Manual) 0.5 L Eosinophils % (Manual) Monocytes # (Manual) 1.1 H Eosinophils # (Manual) D-Dimer Heparin Anti-Xa Level ABG pH POC ABG pCO2 POC ABG pO2 ABG pO2 ABG HCO3 ABG O2 Saturation ABG Base Excess ABG Hemoglobin ABG Oxyhemoglobin VBG pH Oxyhemoglobin Sodium 129 L Potassium Chloride 95.6 L Carbon Dioxide 17 L BUN 106 H Creatinine 2.5 H Glucose 213 H POC Glucose 242 H Lactic Acid Calcium 7.6 L Ferritin AST Alkaline Phosphatase Lactate Dehydrogenase Total Creatine Kinase CK-MB (CK-2) C-Reactive Protein Total Protein 5.0 L Albumin 2.1 L Troponin T HDL Cholesterol Urine WBC (Auto) Urine Creatinine Urine Total Protein Coronavirus (PCR) Crossmatch 06/08/20 06/08/20 06/08/20 05:40 11:55 17:54 WBC RBC Hgb Hct MCHC RDW Lymph % (Auto) [place] % (Auto) Eos % (Auto) Lymph # [place] # Seg Neutrophils % Seg Neuts % (Manual) Lymphocytes % (Manual) Seg Neutrophils # Seg Neutrophils # Man Lymphocytes # (Manual) Eosinophils % (Manual) Monocytes # (Manual) Eosinophils # (Manual) D-Dimer Heparin Anti-Xa Level ABG pH POC ABG pCO2 POC ABG pO2 ABG pO2 ABG HCO3 ABG O2 Saturation ABG Base Excess ABG Hemoglobin ABG Oxyhemoglobin VBG pH Oxyhemoglobin Sodium Potassium Chloride Carbon Dioxide BUN Creatinine Glucose POC Glucose 221 H 218 H 163 H Lactic Acid Calcium Ferritin AST Alkaline Phosphatase Lactate Dehydrogenase Total Creatine Kinase CK-MB (CK-2) C-Reactive Protein Total Protein Albumin Troponin T HDL Cholesterol Urine WBC (Auto) Urine Creatinine Urine Total Protein Coronavirus (PCR) Crossmatch 06/08/20 06/09/20 06/09/20 22:01 00:09 05:16 WBC 19.0 H RBC 3.35 L Hgb 9.2 L Hct 28.5 L MCHC RDW 16.3 H Lymph % (Auto) [place] % (Auto) Eos % (Auto) Lymph # [place] # Seg Neutrophils % Seg Neuts % (Manual) 85.0 H Lymphocytes % (Manual) 7.0 L Seg Neutrophils # Seg Neutrophils # Man 16.2 H Lymphocytes # (Manual) Eosinophils % (Manual) Monocytes # (Manual) 1.3 H Eosinophils # (Manual) D-Dimer Heparin Anti-Xa Level ABG pH POC ABG pCO2 POC ABG pO2 ABG pO2 ABG HCO3 ABG O2 Saturation ABG Base Excess ABG Hemoglobin ABG Oxyhemoglobin VBG pH Oxyhemoglobin Sodium Potassium Chloride Carbon Dioxide BUN Creatinine Glucose POC Glucose 182 H 150 H Lactic Acid Calcium Ferritin AST Alkaline Phosphatase Lactate Dehydrogenase Total Creatine Kinase CK-MB (CK-2) C-Reactive Protein Total Protein Albumin Troponin T HDL Cholesterol Urine WBC (Auto) Urine Creatinine Urine Total Protein Coronavirus (PCR) Crossmatch 06/09/20 06/09/20 06/09/20 05:16 05:24 11:29 WBC RBC Hgb Hct MCHC RDW Lymph % (Auto) [place] % (Auto) Eos % (Auto) Lymph # [place] # Seg Neutrophils % Seg Neuts % (Manual) Lymphocytes % (Manual) Seg Neutrophils # Seg Neutrophils # Man Lymphocytes # (Manual) Eosinophils % (Manual) Monocytes # (Manual) Eosinophils # (Manual) D-Dimer Heparin Anti-Xa Level ABG pH POC ABG pCO2 POC ABG pO2 ABG pO2 ABG HCO3 ABG O2 Saturation ABG Base Excess ABG Hemoglobin ABG Oxyhemoglobin VBG pH Oxyhemoglobin Sodium 133 L Potassium Chloride Carbon Dioxide 19 L BUN 109 H Creatinine 2.1 H Glucose 133 H POC Glucose 128 H 119 H Lactic Acid Calcium 7.7 L Ferritin AST Alkaline Phosphatase < 5 L Lactate Dehydrogenase Total Creatine Kinase CK-MB (CK-2) C-Reactive Protein Total Protein 4.6 L Albumin < 0.2 L Troponin T HDL Cholesterol Urine WBC (Auto) Urine Creatinine Urine Total Protein Coronavirus (PCR) Crossmatch 06/09/20 06/10/20 06/10/20 17:32 00:00 05:49 WBC RBC Hgb Hct MCHC RDW Lymph % (Auto) [place] % (Auto) Eos % (Auto) Lymph # [place] # Seg Neutrophils % Seg Neuts % (Manual) Lymphocytes % (Manual) Seg Neutrophils # Seg Neutrophils # Man Lymphocytes # (Manual) Eosinophils % (Manual) Monocytes # (Manual) Eosinophils # (Manual) D-Dimer Heparin Anti-Xa Level 0.19 L ABG pH POC ABG pCO2 POC ABG pO2 ABG pO2 ABG HCO3 ABG O2 Saturation ABG Base Excess ABG Hemoglobin ABG Oxyhemoglobin VBG pH Oxyhemoglobin Sodium Potassium Chloride Carbon Dioxide BUN Creatinine Glucose POC Glucose 106 H 117 H Lactic Acid Calcium Ferritin AST Alkaline Phosphatase Lactate Dehydrogenase Total Creatine Kinase CK-MB (CK-2) C-Reactive Protein Total Protein Albumin Troponin T HDL Cholesterol Urine WBC (Auto) Urine Creatinine Urine Total Protein Coronavirus (PCR) Crossmatch 06/10/20 06/10/20 06/10/20 05:54 07:40 11:40 WBC RBC Hgb Hct MCHC RDW Lymph % (Auto) [place] % (Auto) Eos % (Auto) Lymph # [place] # Seg Neutrophils % Seg Neuts % (Manual) Lymphocytes % (Manual) Seg Neutrophils # Seg Neutrophils # Man Lymphocytes # (Manual) Eosinophils % (Manual) Monocytes # (Manual) Eosinophils # (Manual) D-Dimer Heparin Anti-Xa Level ABG pH POC ABG pCO2 POC ABG pO2 ABG pO2 ABG HCO3 ABG O2 Saturation ABG Base Excess ABG Hemoglobin ABG Oxyhemoglobin VBG pH Oxyhemoglobin Sodium 146 H D Potassium Chloride Carbon Dioxide 20 L BUN 99 H Creatinine 1.9 H Glucose 121 H POC Glucose 127 H 138 H Lactic Acid Calcium 8.2 L Ferritin AST Alkaline Phosphatase Lactate Dehydrogenase Total Creatine Kinase CK-MB (CK-2) C-Reactive Protein Total Protein Albumin Troponin T HDL Cholesterol Urine WBC (Auto) Urine Creatinine Urine Total Protein Coronavirus (PCR) Crossmatch 06/10/20 06/10/20 06/10/20 14:44 17:31 23:22 WBC RBC Hgb Hct MCHC RDW Lymph % (Auto) [place] % (Auto) Eos % (Auto) Lymph # [place] # Seg Neutrophils % Seg Neuts % (Manual) Lymphocytes % (Manual) Seg Neutrophils # Seg Neutrophils # Man Lymphocytes # (Manual) Eosinophils % (Manual) Monocytes # (Manual) Eosinophils # (Manual) D-Dimer Heparin Anti-Xa Level 0.17 L ABG pH POC ABG pCO2 POC ABG pO2 ABG pO2 ABG HCO3 ABG O2 Saturation ABG Base Excess ABG Hemoglobin ABG Oxyhemoglobin VBG pH Oxyhemoglobin Sodium Potassium Chloride Carbon Dioxide BUN Creatinine Glucose POC Glucose 128 H 114 H Lactic Acid Calcium Ferritin AST Alkaline Phosphatase Lactate Dehydrogenase Total Creatine Kinase CK-MB (CK-2) C-Reactive Protein Total Protein Albumin Troponin T HDL Cholesterol Urine WBC (Auto) Urine Creatinine Urine Total Protein Coronavirus (PCR) Crossmatch 06/11/20 06/11/20 06/11/20 00:22 03:45 03:45 WBC 14.6 H RBC 2.77 L Hgb 7.9 L Hct 24.3 L MCHC RDW 16.8 H Lymph % (Auto) 6.6 L [place] % (Auto) 8.5 H Eos % (Auto) Lymph # 1.0 L [place] # 1.2 H Seg Neutrophils % 82.9 H Seg Neuts % (Manual) Lymphocytes % (Manual) Seg Neutrophils # 12.1 H Seg Neutrophils # Man Lymphocytes # (Manual) Eosinophils % (Manual) Monocytes # (Manual) Eosinophils # (Manual) D-Dimer Heparin Anti-Xa Level 0.24 L ABG pH POC ABG pCO2 POC ABG pO2 ABG pO2 ABG HCO3 ABG O2 Saturation ABG Base Excess ABG Hemoglobin ABG Oxyhemoglobin VBG pH Oxyhemoglobin Sodium Potassium Chloride Carbon Dioxide 20 L BUN 88 H Creatinine 1.5 H Glucose 111 H POC Glucose Lactic Acid Calcium 8.2 L Ferritin AST Alkaline Phosphatase Lactate Dehydrogenase Total Creatine Kinase CK-MB (CK-2) C-Reactive Protein Total Protein Albumin Troponin T HDL Cholesterol Urine WBC (Auto) Urine Creatinine Urine Total Protein Coronavirus (PCR) Crossmatch 06/11/20 06/11/20 06/11/20 06:03 10:22 11:11 WBC RBC Hgb Hct MCHC RDW Lymph % (Auto) [place] % (Auto) Eos % (Auto) Lymph # [place] # Seg Neutrophils % Seg Neuts % (Manual) Lymphocytes % (Manual) Seg Neutrophils # Seg Neutrophils # Man Lymphocytes # (Manual) Eosinophils % (Manual) Monocytes # (Manual) Eosinophils # (Manual) D-Dimer Heparin Anti-Xa Level 0.26 L ABG pH POC ABG pCO2 POC ABG pO2 ABG pO2 ABG HCO3 ABG O2 Saturation ABG Base Excess ABG Hemoglobin 9.6 L ABG Oxyhemoglobin VBG pH Oxyhemoglobin Sodium Potassium Chloride Carbon Dioxide BUN Creatinine Glucose POC Glucose 114 H Lactic Acid Calcium Ferritin AST Alkaline Phosphatase Lactate Dehydrogenase Total Creatine Kinase CK-MB (CK-2) C-Reactive Protein Total Protein Albumin Troponin T HDL Cholesterol Urine WBC (Auto) Urine Creatinine Urine Total Protein Coronavirus (PCR) Crossmatch 06/11/20 06/11/20 06/12/20 12:24 17:24 00:21 WBC RBC Hgb Hct MCHC RDW Lymph % (Auto) [place] % (Auto) Eos % (Auto) Lymph # [place] # Seg Neutrophils % Seg Neuts % (Manual) Lymphocytes % (Manual) Seg Neutrophils # Seg Neutrophils # Man Lymphocytes # (Manual) Eosinophils % (Manual) Monocytes # (Manual) Eosinophils # (Manual) D-Dimer Heparin Anti-Xa Level ABG pH POC ABG pCO2 POC ABG pO2 ABG pO2 ABG HCO3 ABG O2 Saturation ABG Base Excess ABG Hemoglobin ABG Oxyhemoglobin VBG pH Oxyhemoglobin Sodium Potassium Chloride Carbon Dioxide BUN Creatinine Glucose POC Glucose 119 H 126 H 117 H Lactic Acid Calcium Ferritin AST Alkaline Phosphatase Lactate Dehydrogenase Total Creatine Kinase CK-MB (CK-2) C-Reactive Protein Total Protein Albumin Troponin T HDL Cholesterol Urine WBC (Auto) Urine Creatinine Urine Total Protein Coronavirus (PCR) Crossmatch 06/12/20 06/12/20 06/12/20 02:46 02:46 05:46 WBC 13.2 H RBC 2.83 L Hgb 8.3 L Hct 24.3 L MCHC RDW 16.6 H Lymph % (Auto) 6.2 L [place] % (Auto) 9.5 H Eos % (Auto) Lymph # 0.8 L [place] # 1.3 H Seg Neutrophils % 81.9 H Seg Neuts % (Manual) Lymphocytes % (Manual) Seg Neutrophils # 10.9 H Seg Neutrophils # Man Lymphocytes # (Manual) Eosinophils % (Manual) Monocytes # (Manual) Eosinophils # (Manual) D-Dimer Heparin Anti-Xa Level ABG pH POC ABG pCO2 POC ABG pO2 ABG pO2 ABG HCO3 ABG O2 Saturation ABG Base Excess ABG Hemoglobin ABG Oxyhemoglobin VBG pH Oxyhemoglobin Sodium Potassium 3.5 L Chloride Carbon Dioxide BUN 77 H Creatinine 1.3 H Glucose POC Glucose 132 H Lactic Acid Calcium 8.3 L Ferritin AST Alkaline Phosphatase Lactate Dehydrogenase Total Creatine Kinase CK-MB (CK-2) C-Reactive Protein Total Protein Albumin Troponin T HDL Cholesterol Urine WBC (Auto) Urine Creatinine Urine Total Protein Coronavirus (PCR) Crossmatch 06/12/20 06/12/20 06/12/20 09:20 12:16 17:48 WBC RBC Hgb Hct MCHC RDW Lymph % (Auto) [place] % (Auto) Eos % (Auto) Lymph # [place] # Seg Neutrophils % Seg Neuts % (Manual) Lymphocytes % (Manual) Seg Neutrophils # Seg Neutrophils # Man Lymphocytes # (Manual) Eosinophils % (Manual) Monocytes # (Manual) Eosinophils # (Manual) D-Dimer Heparin Anti-Xa Level ABG pH POC ABG pCO2 POC ABG pO2 ABG pO2 91.1 H ABG HCO3 ABG O2 Saturation ABG Base Excess ABG Hemoglobin ABG Oxyhemoglobin VBG pH Oxyhemoglobin 94.8 L Sodium Potassium Chloride Carbon Dioxide BUN Creatinine Glucose POC Glucose 167 H 182 H Lactic Acid Calcium Ferritin AST Alkaline Phosphatase Lactate Dehydrogenase Total Creatine Kinase CK-MB (CK-2) C-Reactive Protein Total Protein Albumin Troponin T HDL Cholesterol Urine WBC (Auto) Urine Creatinine Urine Total Protein Coronavirus (PCR) Crossmatch 06/13/20 06/13/20 06/13/20 00:08 05:37 09:09 WBC RBC Hgb Hct MCHC RDW Lymph % (Auto) [place] % (Auto) Eos % (Auto) Lymph # [place] # Seg Neutrophils % Seg Neuts % (Manual) Lymphocytes % (Manual) Seg Neutrophils # Seg Neutrophils # Man Lymphocytes # (Manual) Eosinophils % (Manual) Monocytes # (Manual) Eosinophils # (Manual) D-Dimer Heparin Anti-Xa Level 0.86 H ABG pH POC ABG pCO2 POC ABG pO2 ABG pO2 ABG HCO3 ABG O2 Saturation ABG Base Excess ABG Hemoglobin ABG Oxyhemoglobin VBG pH Oxyhemoglobin Sodium Potassium Chloride Carbon Dioxide BUN Creatinine Glucose POC Glucose 142 H 119 H Lactic Acid Calcium Ferritin AST Alkaline Phosphatase Lactate Dehydrogenase Total Creatine Kinase CK-MB (CK-2) C-Reactive Protein Total Protein Albumin Troponin T HDL Cholesterol Urine WBC (Auto) Urine Creatinine Urine Total Protein Coronavirus (PCR) Crossmatch 06/13/20 06/13/20 06/13/20 12:28 17:55 21:17 WBC RBC Hgb Hct MCHC RDW Lymph % (Auto) [place] % (Auto) Eos % (Auto) Lymph # [place] # Seg Neutrophils % Seg Neuts % (Manual) Lymphocytes % (Manual) Seg Neutrophils # Seg Neutrophils # Man Lymphocytes # (Manual) Eosinophils % (Manual) Monocytes # (Manual) Eosinophils # (Manual) D-Dimer Heparin Anti-Xa Level ABG pH POC ABG pCO2 POC ABG pO2 ABG pO2 ABG HCO3 ABG O2 Saturation ABG Base Excess ABG Hemoglobin ABG Oxyhemoglobin VBG pH Oxyhemoglobin Sodium Potassium Chloride Carbon Dioxide BUN 61 H Creatinine Glucose 131 H POC Glucose 165 H 174 H Lactic Acid Calcium Ferritin AST Alkaline Phosphatase Lactate Dehydrogenase Total Creatine Kinase CK-MB (CK-2) C-Reactive Protein Total Protein Albumin Troponin T HDL Cholesterol Urine WBC (Auto) Urine Creatinine Urine Total Protein Coronavirus (PCR) Crossmatch 06/13/20 06/13/20 06/14/20 21:17 23:50 05:34 WBC RBC Hgb Hct MCHC RDW Lymph % (Auto) [place] % (Auto) Eos % (Auto) Lymph # [place] # Seg Neutrophils % Seg Neuts % (Manual) Lymphocytes % (Manual) Seg Neutrophils # Seg Neutrophils # Man Lymphocytes # (Manual) Eosinophils % (Manual) Monocytes # (Manual) Eosinophils # (Manual) D-Dimer Heparin Anti-Xa Level 0.72 H ABG pH POC ABG pCO2 POC ABG pO2 ABG pO2 ABG HCO3 ABG O2 Saturation ABG Base Excess ABG Hemoglobin ABG Oxyhemoglobin VBG pH Oxyhemoglobin Sodium 146 H Potassium Chloride 107.6 H Carbon Dioxide BUN 61 H Creatinine 1.3 H Glucose 135 H POC Glucose 146 H Lactic Acid Calcium Ferritin AST Alkaline Phosphatase Lactate Dehydrogenase Total Creatine Kinase CK-MB (CK-2) C-Reactive Protein Total Protein Albumin Troponin T HDL Cholesterol Urine WBC (Auto) Urine Creatinine Urine Total Protein Coronavirus (PCR) Crossmatch 06/14/20 06/14/20 06/14/20 06:11 09:28 11:30 WBC RBC Hgb Hct MCHC RDW Lymph % (Auto) [place] % (Auto) Eos % (Auto) Lymph # [place] # Seg Neutrophils % Seg Neuts % (Manual) Lymphocytes % (Manual) Seg Neutrophils # Seg Neutrophils # Man Lymphocytes # (Manual) Eosinophils % (Manual) Monocytes # (Manual) Eosinophils # (Manual) D-Dimer Heparin Anti-Xa Level 0.90 H ABG pH POC ABG pCO2 POC ABG pO2 ABG pO2 ABG HCO3 ABG O2 Saturation ABG Base Excess ABG Hemoglobin ABG Oxyhemoglobin VBG pH Oxyhemoglobin Sodium Potassium Chloride Carbon Dioxide BUN Creatinine Glucose POC Glucose 141 H 186 H Lactic Acid Calcium Ferritin AST Alkaline Phosphatase Lactate Dehydrogenase Total Creatine Kinase CK-MB (CK-2) C-Reactive Protein Total Protein Albumin Troponin T HDL Cholesterol Urine WBC (Auto) Urine Creatinine Urine Total Protein Coronavirus (PCR) Crossmatch 06/14/20 06/14/20 06/14/20 16:07 18:16 23:51 WBC RBC Hgb Hct MCHC RDW Lymph % (Auto) [place] % (Auto) Eos % (Auto) Lymph # [place] # Seg Neutrophils % Seg Neuts % (Manual) Lymphocytes % (Manual) Seg Neutrophils # Seg Neutrophils # Man Lymphocytes # (Manual) Eosinophils % (Manual) Monocytes # (Manual) Eosinophils # (Manual) D-Dimer Heparin Anti-Xa Level 0.82 H ABG pH POC ABG pCO2 POC ABG pO2 ABG pO2 ABG HCO3 ABG O2 Saturation ABG Base Excess ABG Hemoglobin ABG Oxyhemoglobin VBG pH Oxyhemoglobin Sodium Potassium Chloride Carbon Dioxide BUN Creatinine Glucose POC Glucose 106 H 154 H Lactic Acid Calcium Ferritin AST Alkaline Phosphatase Lactate Dehydrogenase Total Creatine Kinase CK-MB (CK-2) C-Reactive Protein Total Protein Albumin Troponin T HDL Cholesterol Urine WBC (Auto) Urine Creatinine Urine Total Protein Coronavirus (PCR) Crossmatch 06/15/20 06/15/20 06/15/20 04:24 04:24 05:59 WBC RBC 2.75 L Hgb 7.9 L Hct 24.0 L MCHC RDW 16.4 H Lymph % (Auto) 12.9 L [place] % (Auto) 8.7 H Eos % (Auto) 4.6 H Lymph # 1.1 L [place] # Seg Neutrophils % 73.2 H Seg Neuts % (Manual) Lymphocytes % (Manual) Seg Neutrophils # Seg Neutrophils # Man Lymphocytes # (Manual) Eosinophils % (Manual) Monocytes # (Manual) Eosinophils # (Manual) D-Dimer Heparin Anti-Xa Level ABG pH POC ABG pCO2 POC ABG pO2 ABG pO2 ABG HCO3 ABG O2 Saturation ABG Base Excess ABG Hemoglobin ABG Oxyhemoglobin VBG pH Oxyhemoglobin Sodium Potassium 3.4 L Chloride Carbon Dioxide BUN 55 H Creatinine 1.3 H Glucose 142 H POC Glucose 131 H Lactic Acid Calcium Ferritin AST Alkaline Phosphatase Lactate Dehydrogenase Total Creatine Kinase CK-MB (CK-2) C-Reactive Protein Total Protein Albumin Troponin T HDL Cholesterol Urine WBC (Auto) Urine Creatinine Urine Total Protein Coronavirus (PCR) Crossmatch 06/15/20 06/15/20 06/16/20 12:33 17:07 00:22 WBC RBC Hgb Hct MCHC RDW Lymph % (Auto) [place] % (Auto) Eos % (Auto) Lymph # [place] # Seg Neutrophils % Seg Neuts % (Manual) Lymphocytes % (Manual) Seg Neutrophils # Seg Neutrophils # Man Lymphocytes # (Manual) Eosinophils % (Manual) Monocytes # (Manual) Eosinophils # (Manual) D-Dimer Heparin Anti-Xa Level 0.21 L ABG pH POC ABG pCO2 POC ABG pO2 ABG pO2 ABG HCO3 ABG O2 Saturation ABG Base Excess ABG Hemoglobin ABG Oxyhemoglobin VBG pH Oxyhemoglobin Sodium Potassium Chloride Carbon Dioxide BUN Creatinine Glucose POC Glucose 180 H 185 H Lactic Acid Calcium Ferritin AST Alkaline Phosphatase Lactate Dehydrogenase Total Creatine Kinase CK-MB (CK-2) C-Reactive Protein Total Protein Albumin Troponin T HDL Cholesterol Urine WBC (Auto) Urine Creatinine Urine Total Protein Coronavirus (PCR) Crossmatch 06/16/20 06/16/20 06/16/20 01:45 08:06 09:15 WBC RBC Hgb Hct MCHC RDW Lymph % (Auto) [place] % (Auto) Eos % (Auto) Lymph # [place] # Seg Neutrophils % Seg Neuts % (Manual) Lymphocytes % (Manual) Seg Neutrophils # Seg Neutrophils # Man Lymphocytes # (Manual) Eosinophils % (Manual) Monocytes # (Manual) Eosinophils # (Manual) D-Dimer Heparin Anti-Xa Level ABG pH POC ABG pCO2 POC ABG pO2 ABG pO2 ABG HCO3 ABG O2 Saturation ABG Base Excess ABG Hemoglobin ABG Oxyhemoglobin VBG pH Oxyhemoglobin Sodium Potassium Chloride Carbon Dioxide BUN 49 H Creatinine Glucose 154 H POC Glucose 140 H 171 H Lactic Acid Calcium Ferritin AST Alkaline Phosphatase Lactate Dehydrogenase Total Creatine Kinase CK-MB (CK-2) C-Reactive Protein Total Protein Albumin Troponin T HDL Cholesterol Urine WBC (Auto) Urine Creatinine Urine Total Protein Coronavirus (PCR) Crossmatch 06/16/20 06/16/20 06/16/20 10:46 12:33 17:54 WBC RBC Hgb Hct MCHC RDW Lymph % (Auto) [place] % (Auto) Eos % (Auto) Lymph # [place] # Seg Neutrophils % Seg Neuts % (Manual) Lymphocytes % (Manual) Seg Neutrophils # Seg Neutrophils # Man Lymphocytes # (Manual) Eosinophils % (Manual) Monocytes # (Manual) Eosinophils # (Manual) D-Dimer Heparin Anti-Xa Level 0.12 L ABG pH POC ABG pCO2 POC ABG pO2 ABG pO2 ABG HCO3 ABG O2 Saturation ABG Base Excess ABG Hemoglobin ABG Oxyhemoglobin VBG pH Oxyhemoglobin Sodium Potassium Chloride Carbon Dioxide BUN Creatinine Glucose POC Glucose 166 H 151 H Lactic Acid Calcium Ferritin AST Alkaline Phosphatase Lactate Dehydrogenase Total Creatine Kinase CK-MB (CK-2) C-Reactive Protein Total Protein Albumin Troponin T HDL Cholesterol Urine WBC (Auto) Urine Creatinine Urine Total Protein Coronavirus (PCR) Crossmatch 06/16/20 06/17/20 06/17/20 18:47 00:00 02:19 WBC RBC Hgb Hct MCHC RDW Lymph % (Auto) [place] % (Auto) Eos % (Auto) Lymph # [place] # Seg Neutrophils % Seg Neuts % (Manual) Lymphocytes % (Manual) Seg Neutrophils # Seg Neutrophils # Man Lymphocytes # (Manual) Eosinophils % (Manual) Monocytes # (Manual) Eosinophils # (Manual) D-Dimer Heparin Anti-Xa Level 0.73 H 0.77 H ABG pH POC ABG pCO2 POC ABG pO2 ABG pO2 ABG HCO3 ABG O2 Saturation ABG Base Excess ABG Hemoglobin ABG Oxyhemoglobin VBG pH Oxyhemoglobin Sodium Potassium Chloride Carbon Dioxide BUN Creatinine Glucose POC Glucose 139 H Lactic Acid Calcium Ferritin AST Alkaline Phosphatase Lactate Dehydrogenase Total Creatine Kinase CK-MB (CK-2) C-Reactive Protein Total Protein Albumin Troponin T HDL Cholesterol Urine WBC (Auto) Urine Creatinine Urine Total Protein Coronavirus (PCR) Crossmatch 06/17/20 06/17/20 06/17/20 06:07 11:42 16:43 WBC RBC Hgb Hct MCHC RDW Lymph % (Auto) [place] % (Auto) Eos % (Auto) Lymph # [place] # Seg Neutrophils % Seg Neuts % (Manual) Lymphocytes % (Manual) Seg Neutrophils # Seg Neutrophils # Man Lymphocytes # (Manual) Eosinophils % (Manual) Monocytes # (Manual) Eosinophils # (Manual) D-Dimer Heparin Anti-Xa Level 0.73 H ABG pH POC ABG pCO2 POC ABG pO2 ABG pO2 ABG HCO3 ABG O2 Saturation ABG Base Excess ABG Hemoglobin ABG Oxyhemoglobin VBG pH Oxyhemoglobin Sodium Potassium Chloride Carbon Dioxide BUN Creatinine Glucose POC Glucose 169 H 169 H Lactic Acid Calcium Ferritin AST Alkaline Phosphatase Lactate Dehydrogenase Total Creatine Kinase CK-MB (CK-2) C-Reactive Protein Total Protein Albumin Troponin T HDL Cholesterol Urine WBC (Auto) Urine Creatinine Urine Total Protein Coronavirus (PCR) Crossmatch 06/17/20 06/17/20 06/17/20 18:18 23:08 23:16 WBC RBC Hgb Hct MCHC RDW Lymph % (Auto) [place] % (Auto) Eos % (Auto) Lymph # [place] # Seg Neutrophils % Seg Neuts % (Manual) Lymphocytes % (Manual) Seg Neutrophils # Seg Neutrophils # Man Lymphocytes # (Manual) Eosinophils % (Manual) Monocytes # (Manual) Eosinophils # (Manual) D-Dimer Heparin Anti-Xa Level 0.71 H ABG pH POC ABG pCO2 POC ABG pO2 ABG pO2 ABG HCO3 ABG O2 Saturation ABG Base Excess ABG Hemoglobin ABG Oxyhemoglobin VBG pH Oxyhemoglobin Sodium Potassium Chloride Carbon Dioxide BUN Creatinine Glucose POC Glucose 159 H 134 H Lactic Acid Calcium Ferritin AST Alkaline Phosphatase Lactate Dehydrogenase Total Creatine Kinase CK-MB (CK-2) C-Reactive Protein Total Protein Albumin Troponin T HDL Cholesterol Urine WBC (Auto) Urine Creatinine Urine Total Protein Coronavirus (PCR) Crossmatch 06/18/20 06/18/20 06/18/20 04:42 05:52 11:50 WBC RBC Hgb Hct MCHC RDW Lymph % (Auto) [place] % (Auto) Eos % (Auto) Lymph # [place] # Seg Neutrophils % Seg Neuts % (Manual) Lymphocytes % (Manual) Seg Neutrophils # Seg Neutrophils # Man Lymphocytes # (Manual) Eosinophils % (Manual) Monocytes # (Manual) Eosinophils # (Manual) D-Dimer Heparin Anti-Xa Level ABG pH POC ABG pCO2 POC ABG pO2 ABG pO2 ABG HCO3 ABG O2 Saturation ABG Base Excess ABG Hemoglobin ABG Oxyhemoglobin VBG pH Oxyhemoglobin Sodium Potassium Chloride Carbon Dioxide BUN 44 H Creatinine Glucose 115 H POC Glucose 171 H 167 H Lactic Acid Calcium Ferritin AST Alkaline Phosphatase Lactate Dehydrogenase Total Creatine Kinase CK-MB (CK-2) C-Reactive Protein Total Protein Albumin Troponin T HDL Cholesterol Urine WBC (Auto) Urine Creatinine Urine Total Protein Coronavirus (PCR) Crossmatch 06/18/20 06/19/20 06/19/20 23:46 05:48 07:52 WBC RBC Hgb Hct MCHC RDW Lymph % (Auto) [place] % (Auto) Eos % (Auto) Lymph # [place] # Seg Neutrophils % Seg Neuts % (Manual) Lymphocytes % (Manual) Seg Neutrophils # Seg Neutrophils # Man Lymphocytes # (Manual) Eosinophils % (Manual) Monocytes # (Manual) Eosinophils # (Manual) D-Dimer Heparin Anti-Xa Level ABG pH POC ABG pCO2 POC ABG pO2 ABG pO2 ABG HCO3 ABG O2 Saturation ABG Base Excess ABG Hemoglobin ABG Oxyhemoglobin VBG pH Oxyhemoglobin Sodium Potassium Chloride Carbon Dioxide BUN Creatinine Glucose POC Glucose 130 H 207 H 175 H Lactic Acid Calcium Ferritin AST Alkaline Phosphatase Lactate Dehydrogenase Total Creatine Kinase CK-MB (CK-2) C-Reactive Protein Total Protein Albumin Troponin T HDL Cholesterol Urine WBC (Auto) Urine Creatinine Urine Total Protein Coronavirus (PCR) Crossmatch 06/19/20 06/19/20 06/20/20 11:42 22:54 05:17 WBC RBC Hgb Hct MCHC RDW Lymph % (Auto) [place] % (Auto) Eos % (Auto) Lymph # [place] # Seg Neutrophils % Seg Neuts % (Manual) Lymphocytes % (Manual) Seg Neutrophils # Seg Neutrophils # Man Lymphocytes # (Manual) Eosinophils % (Manual) Monocytes # (Manual) Eosinophils # (Manual) D-Dimer Heparin Anti-Xa Level ABG pH POC ABG pCO2 POC ABG pO2 ABG pO2 ABG HCO3 ABG O2 Saturation ABG Base Excess ABG Hemoglobin ABG Oxyhemoglobin VBG pH Oxyhemoglobin Sodium Potassium Chloride Carbon Dioxide BUN Creatinine Glucose POC Glucose 166 H 135 H 218 H Lactic Acid Calcium Ferritin AST Alkaline Phosphatase Lactate Dehydrogenase Total Creatine Kinase CK-MB (CK-2) C-Reactive Protein Total Protein Albumin Troponin T HDL Cholesterol Urine WBC (Auto) Urine Creatinine Urine Total Protein Coronavirus (PCR) Crossmatch 06/20/20 06/20/20 06/20/20 12:04 16:25 16:35 WBC RBC Hgb Hct MCHC RDW Lymph % (Auto) [place] % (Auto) Eos % (Auto) Lymph # [place] # Seg Neutrophils % Seg Neuts % (Manual) Lymphocytes % (Manual) Seg Neutrophils # Seg Neutrophils # Man Lymphocytes # (Manual) Eosinophils % (Manual) Monocytes # (Manual) Eosinophils # (Manual) D-Dimer Heparin Anti-Xa Level ABG pH POC ABG pCO2 POC ABG pO2 ABG pO2 59.6 L ABG HCO3 28.7 H ABG O2 Saturation 93.5 L ABG Base Excess 3.4 H ABG Hemoglobin 7.2 L ABG Oxyhemoglobin VBG pH Oxyhemoglobin 91.3 L Sodium Potassium Chloride Carbon Dioxide BUN Creatinine Glucose POC Glucose 194 H 137 H Lactic Acid Calcium Ferritin AST Alkaline Phosphatase Lactate Dehydrogenase Total Creatine Kinase CK-MB (CK-2) C-Reactive Protein Total Protein Albumin Troponin T HDL Cholesterol Urine WBC (Auto) Urine Creatinine Urine Total Protein Coronavirus (PCR) Crossmatch 06/20/20 06/21/20 06/21/20 23:59 06:25 12:01 WBC RBC Hgb Hct MCHC RDW Lymph % (Auto) [place] % (Auto) Eos % (Auto) Lymph # [place] # Seg Neutrophils % Seg Neuts % (Manual) Lymphocytes % (Manual) Seg Neutrophils # Seg Neutrophils # Man Lymphocytes # (Manual) Eosinophils % (Manual) Monocytes # (Manual) Eosinophils # (Manual) D-Dimer Heparin Anti-Xa Level ABG pH POC ABG pCO2 POC ABG pO2 ABG pO2 ABG HCO3 ABG O2 Saturation ABG Base Excess ABG Hemoglobin ABG Oxyhemoglobin VBG pH Oxyhemoglobin Sodium Potassium Chloride Carbon Dioxide BUN Creatinine Glucose POC Glucose 156 H 177 H 195 H Lactic Acid Calcium Ferritin AST Alkaline Phosphatase Lactate Dehydrogenase Total Creatine Kinase CK-MB (CK-2) C-Reactive Protein Total Protein Albumin Troponin T HDL Cholesterol Urine WBC (Auto) Urine Creatinine Urine Total Protein Coronavirus (PCR) Crossmatch 06/21/20 06/21/20 06/22/20 17:04 21:51 05:06 WBC RBC Hgb Hct MCHC RDW Lymph % (Auto) [place] % (Auto) Eos % (Auto) Lymph # [place] # Seg Neutrophils % Seg Neuts % (Manual) Lymphocytes % (Manual) Seg Neutrophils # Seg Neutrophils # Man Lymphocytes # (Manual) Eosinophils % (Manual) Monocytes # (Manual) Eosinophils # (Manual) D-Dimer Heparin Anti-Xa Level ABG pH POC ABG pCO2 POC ABG pO2 ABG pO2 ABG HCO3 ABG O2 Saturation ABG Base Excess ABG Hemoglobin ABG Oxyhemoglobin VBG pH Oxyhemoglobin Sodium Potassium Chloride Carbon Dioxide BUN Creatinine Glucose POC Glucose 156 H 154 H 167 H Lactic Acid Calcium Ferritin AST Alkaline Phosphatase Lactate Dehydrogenase Total Creatine Kinase CK-MB (CK-2) C-Reactive Protein Total Protein Albumin Troponin T HDL Cholesterol Urine WBC (Auto) Urine Creatinine Urine Total Protein Coronavirus (PCR) Crossmatch 06/22/20 06/22/20 06/22/20 11:20 15:27 16:58 WBC RBC Hgb Hct MCHC RDW Lymph % (Auto) [place] % (Auto) Eos % (Auto) Lymph # [place] # Seg Neutrophils % Seg Neuts % (Manual) Lymphocytes % (Manual) Seg Neutrophils # Seg Neutrophils # Man Lymphocytes # (Manual) Eosinophils % (Manual) Monocytes # (Manual) Eosinophils # (Manual) D-Dimer Heparin Anti-Xa Level ABG pH 7.206 L POC ABG pCO2 79.9 H POC ABG pO2 ABG pO2 ABG HCO3 ABG O2 Saturation ABG Base Excess ABG Hemoglobin 8.3 L ABG Oxyhemoglobin VBG pH Oxyhemoglobin Sodium Potassium Chloride Carbon Dioxide BUN Creatinine Glucose POC Glucose 181 H 230 H Lactic Acid Calcium Ferritin AST Alkaline Phosphatase Lactate Dehydrogenase Total Creatine Kinase CK-MB (CK-2) C-Reactive Protein Total Protein Albumin Troponin T HDL Cholesterol Urine WBC (Auto) Urine Creatinine Urine Total Protein Coronavirus (PCR) Crossmatch 06/22/20 06/23/20 06/23/20 22:26 05:49 05:49 WBC RBC 2.58 L Hgb 7.4 L Hct 23.2 L MCHC RDW 17.0 H Lymph % (Auto) [place] % (Auto) 11.2 H Eos % (Auto) Lymph # 1.0 L [place] # Seg Neutrophils % Seg Neuts % (Manual) Lymphocytes % (Manual) Seg Neutrophils # Seg Neutrophils # Man Lymphocytes # (Manual) Eosinophils % (Manual) Monocytes # (Manual) Eosinophils # (Manual) D-Dimer Heparin Anti-Xa Level ABG pH POC ABG pCO2 POC ABG pO2 ABG pO2 ABG HCO3 ABG O2 Saturation ABG Base Excess ABG Hemoglobin ABG Oxyhemoglobin VBG pH Oxyhemoglobin Sodium Potassium Chloride Carbon Dioxide BUN 68 H Creatinine 2.4 H Glucose 198 H POC Glucose 195 H Lactic Acid Calcium Ferritin AST Alkaline Phosphatase Lactate Dehydrogenase Total Creatine Kinase CK-MB (CK-2) C-Reactive Protein Total Protein Albumin Troponin T HDL Cholesterol Urine WBC (Auto) Urine Creatinine Urine Total Protein Coronavirus (PCR) Crossmatch 06/23/20 06/23/20 06/23/20 05:50 12:29 12:34 WBC RBC Hgb Hct MCHC RDW Lymph % (Auto) [place] % (Auto) Eos % (Auto) Lymph # [place] # Seg Neutrophils % Seg Neuts % (Manual) Lymphocytes % (Manual) Seg Neutrophils # Seg Neutrophils # Man Lymphocytes # (Manual) Eosinophils % (Manual) Monocytes # (Manual) Eosinophils # (Manual) D-Dimer Heparin Anti-Xa Level ABG pH POC ABG pCO2 54.7 H POC ABG pO2 68.8 L ABG pO2 ABG HCO3 ABG O2 Saturation ABG Base Excess ABG Hemoglobin 9.8 L ABG Oxyhemoglobin 92.6 L VBG pH Oxyhemoglobin Sodium Potassium Chloride Carbon Dioxide BUN Creatinine Glucose POC Glucose 202 H 218 H Lactic Acid Calcium Ferritin AST Alkaline Phosphatase Lactate Dehydrogenase Total Creatine Kinase CK-MB (CK-2) C-Reactive Protein Total Protein Albumin Troponin T HDL Cholesterol Urine WBC (Auto) Urine Creatinine Urine Total Protein Coronavirus (PCR) Crossmatch 06/23/20 06/23/20 06/24/20 16:02 22:22 01:06 WBC RBC Hgb Hct MCHC RDW Lymph % (Auto) [place] % (Auto) Eos % (Auto) Lymph # [place] # Seg Neutrophils % Seg Neuts % (Manual) Lymphocytes % (Manual) Seg Neutrophils # Seg Neutrophils # Man Lymphocytes # (Manual) Eosinophils % (Manual) Monocytes # (Manual) Eosinophils # (Manual) D-Dimer Heparin Anti-Xa Level ABG pH POC ABG pCO2 POC ABG pO2 ABG pO2 ABG HCO3 ABG O2 Saturation ABG Base Excess ABG Hemoglobin ABG Oxyhemoglobin VBG pH Oxyhemoglobin Sodium Potassium Chloride Carbon Dioxide BUN Creatinine Glucose POC Glucose 190 H 166 H 171 H Lactic Acid Calcium Ferritin AST Alkaline Phosphatase Lactate Dehydrogenase Total Creatine Kinase CK-MB (CK-2) C-Reactive Protein Total Protein Albumin Troponin T HDL Cholesterol Urine WBC (Auto) Urine Creatinine Urine Total Protein Coronavirus (PCR) Crossmatch 06/24/20 06/24/20 06/24/20 04:48 05:35 11:48 WBC RBC Hgb Hct MCHC RDW Lymph % (Auto) [place] % (Auto) Eos % (Auto) Lymph # [place] # Seg Neutrophils % Seg Neuts % (Manual) Lymphocytes % (Manual) Seg Neutrophils # Seg Neutrophils # Man Lymphocytes # (Manual) Eosinophils % (Manual) Monocytes # (Manual) Eosinophils # (Manual) D-Dimer Heparin Anti-Xa Level ABG pH POC ABG pCO2 POC ABG pO2 ABG pO2 ABG HCO3 ABG O2 Saturation ABG Base Excess ABG Hemoglobin ABG Oxyhemoglobin VBG pH Oxyhemoglobin Sodium Potassium Chloride Carbon Dioxide BUN 75 H Creatinine 2.6 H Glucose 179 H POC Glucose 172 H 153 H Lactic Acid Calcium Ferritin AST Alkaline Phosphatase Lactate Dehydrogenase Total Creatine Kinase CK-MB (CK-2) C-Reactive Protein Total Protein Albumin Troponin T HDL Cholesterol Urine WBC (Auto) Urine Creatinine Urine Total Protein Coronavirus (PCR) Crossmatch 06/24/20 06/24/20 06/25/20 16:38 21:52 12:00 WBC RBC Hgb Hct MCHC RDW Lymph % (Auto) [place] % (Auto) Eos % (Auto) Lymph # [place] # Seg Neutrophils % Seg Neuts % (Manual) Lymphocytes % (Manual) Seg Neutrophils # Seg Neutrophils # Man Lymphocytes # (Manual) Eosinophils % (Manual) Monocytes # (Manual) Eosinophils # (Manual) D-Dimer Heparin Anti-Xa Level ABG pH POC ABG pCO2 POC ABG pO2 ABG pO2 ABG HCO3 ABG O2 Saturation ABG Base Excess ABG Hemoglobin ABG Oxyhemoglobin VBG pH Oxyhemoglobin Sodium Potassium Chloride Carbon Dioxide BUN Creatinine Glucose POC Glucose 123 H 115 H 203 H Lactic Acid Calcium Ferritin AST Alkaline Phosphatase Lactate Dehydrogenase Total Creatine Kinase CK-MB (CK-2) C-Reactive Protein Total Protein Albumin Troponin T HDL Cholesterol Urine WBC (Auto) Urine Creatinine Urine Total Protein Coronavirus (PCR) Crossmatch 06/25/20 06/25/20 06/25/20 15:43 16:37 23:02 WBC RBC Hgb Hct MCHC RDW Lymph % (Auto) [place] % (Auto) Eos % (Auto) Lymph # [place] # Seg Neutrophils % Seg Neuts % (Manual) Lymphocytes % (Manual) Seg Neutrophils # Seg Neutrophils # Man Lymphocytes # (Manual) Eosinophils % (Manual) Monocytes # (Manual) Eosinophils # (Manual) D-Dimer Heparin Anti-Xa Level ABG pH POC ABG pCO2 POC ABG pO2 ABG pO2 ABG HCO3 ABG O2 Saturation ABG Base Excess ABG Hemoglobin ABG Oxyhemoglobin VBG pH Oxyhemoglobin Sodium Potassium Chloride Carbon Dioxide BUN 71 H Creatinine 1.8 H Glucose 170 H POC Glucose 191 H 126 H Lactic Acid Calcium 8.2 L Ferritin AST Alkaline Phosphatase Lactate Dehydrogenase Total Creatine Kinase CK-MB (CK-2) C-Reactive Protein Total Protein Albumin Troponin T HDL Cholesterol Urine WBC (Auto) Urine Creatinine Urine Total Protein Coronavirus (PCR) Crossmatch 06/26/20 06/26/20 06/26/20 06:34 06:34 09:27 WBC RBC 2.41 L Hgb 6.9 L Hct 21.5 L MCHC RDW 16.7 H Lymph % (Auto) 10.9 L [place] % (Auto) 9.6 H Eos % (Auto) Lymph # 0.7 L [place] # Seg Neutrophils % 75.4 H Seg Neuts % (Manual) Lymphocytes % (Manual) Seg Neutrophils # Seg Neutrophils # Man Lymphocytes # (Manual) Eosinophils % (Manual) Monocytes # (Manual) Eosinophils # (Manual) D-Dimer Heparin Anti-Xa Level ABG pH POC ABG pCO2 POC ABG pO2 ABG pO2 ABG HCO3 ABG O2 Saturation ABG Base Excess ABG Hemoglobin ABG Oxyhemoglobin VBG pH Oxyhemoglobin Sodium Potassium Chloride Carbon Dioxide BUN 77 H Creatinine 1.9 H Glucose 190 H POC Glucose Lactic Acid Calcium Ferritin AST Alkaline Phosphatase Lactate Dehydrogenase Total Creatine Kinase CK-MB (CK-2) C-Reactive Protein Total Protein Albumin Troponin T HDL Cholesterol Urine WBC (Auto) Urine Creatinine Urine Total Protein Coronavirus (PCR) Crossmatch See Detail 06/26/20 06/26/20 06/26/20 12:15 16:28 17:28 WBC RBC Hgb Hct MCHC RDW Lymph % (Auto) [place] % (Auto) Eos % (Auto) Lymph # [place] # Seg Neutrophils % Seg Neuts % (Manual) Lymphocytes % (Manual) Seg Neutrophils # Seg Neutrophils # Man Lymphocytes # (Manual) Eosinophils % (Manual) Monocytes # (Manual) Eosinophils # (Manual) D-Dimer Heparin Anti-Xa Level ABG pH POC ABG pCO2 POC ABG pO2 ABG pO2 ABG HCO3 ABG O2 Saturation ABG Base Excess ABG Hemoglobin ABG Oxyhemoglobin VBG pH Oxyhemoglobin Sodium Potassium Chloride Carbon Dioxide BUN Creatinine Glucose POC Glucose 187 H 149 H 189 H Lactic Acid Calcium Ferritin AST Alkaline Phosphatase Lactate Dehydrogenase Total Creatine Kinase CK-MB (CK-2) C-Reactive Protein Total Protein Albumin Troponin T HDL Cholesterol Urine WBC (Auto) Urine Creatinine Urine Total Protein Coronavirus (PCR) Crossmatch 06/26/20 06/26/20 06/26/20 18:30 18:30 18:30 WBC RBC 2.87 L Hgb 8.2 L Hct 25.9 L MCHC RDW 17.8 H Lymph % (Auto) [place] % (Auto) Eos % (Auto) Lymph # [place] # Seg Neutrophils % Seg Neuts % (Manual) 83.0 H Lymphocytes % (Manual) 8.0 L Seg Neutrophils # Seg Neutrophils # Man Lymphocytes # (Manual) 0.6 L Eosinophils % (Manual) Monocytes # (Manual) Eosinophils # (Manual) D-Dimer Heparin Anti-Xa Level ABG pH POC ABG pCO2 POC ABG pO2 ABG pO2 ABG HCO3 ABG O2 Saturation ABG Base Excess ABG Hemoglobin ABG Oxyhemoglobin VBG pH Oxyhemoglobin Sodium Potassium Chloride Carbon Dioxide BUN 80 H Creatinine 2.1 H Glucose 260 H POC Glucose Lactic Acid 4.30 H* Calcium 8.3 L Ferritin AST Alkaline Phosphatase Lactate Dehydrogenase Total Creatine Kinase CK-MB (CK-2) C-Reactive Protein Total Protein Albumin Troponin T HDL Cholesterol Urine WBC (Auto) Urine Creatinine Urine Total Protein Coronavirus (PCR) Crossmatch 06/26/20 06/27/20 06/27/20 18:50 01:00 04:29 WBC RBC Hgb Hct MCHC RDW Lymph % (Auto) [place] % (Auto) Eos % (Auto) Lymph # [place] # Seg Neutrophils % Seg Neuts % (Manual) Lymphocytes % (Manual) Seg Neutrophils # Seg Neutrophils # Man Lymphocytes # (Manual) Eosinophils % (Manual) Monocytes # (Manual) Eosinophils # (Manual) D-Dimer Heparin Anti-Xa Level ABG pH 7.296 L POC ABG pCO2 POC ABG pO2 ABG pO2 116.5 H 200.5 H ABG HCO3 28.4 H ABG O2 Saturation 99.3 H ABG Base Excess 3.7 H ABG Hemoglobin 5.6 L ABG Oxyhemoglobin VBG pH Oxyhemoglobin Sodium Potassium Chloride Carbon Dioxide BUN Creatinine Glucose POC Glucose 123 H Lactic Acid Calcium Ferritin AST Alkaline Phosphatase Lactate Dehydrogenase Total Creatine Kinase CK-MB (CK-2) C-Reactive Protein Total Protein Albumin Troponin T HDL Cholesterol Urine WBC (Auto) Urine Creatinine Urine Total Protein Coronavirus (PCR) Crossmatch 06/27/20 06/27/20 06/27/20 05:00 05:00 05:00 WBC RBC 2.75 L Hgb 7.9 L Hct 24.3 L MCHC RDW 17.1 H Lymph % (Auto) 8.5 L [place] % (Auto) 12.6 H Eos % (Auto) Lymph # 0.7 L [place] # 1.0 H Seg Neutrophils % 77.5 H Seg Neuts % (Manual) Lymphocytes % (Manual) Seg Neutrophils # Seg Neutrophils # Man Lymphocytes # (Manual) Eosinophils % (Manual) Monocytes # (Manual) Eosinophils # (Manual) D-Dimer Heparin Anti-Xa Level ABG pH POC ABG pCO2 POC ABG pO2 ABG pO2 ABG HCO3 ABG O2 Saturation ABG Base Excess ABG Hemoglobin ABG Oxyhemoglobin VBG pH Oxyhemoglobin Sodium Potassium Chloride Carbon Dioxide BUN 80 H Creatinine 2.0 H Glucose 129 H POC Glucose Lactic Acid 0.60 L Calcium 7.9 L Ferritin AST Alkaline Phosphatase Lactate Dehydrogenase Total Creatine Kinase CK-MB (CK-2) C-Reactive Protein Total Protein Albumin Troponin T HDL Cholesterol Urine WBC (Auto) Urine Creatinine Urine Total Protein Coronavirus (PCR) Crossmatch 06/27/20 06/27/20 06/27/20 05:23 13:46 17:25 WBC RBC Hgb Hct MCHC RDW Lymph % (Auto) [place] % (Auto) Eos % (Auto) Lymph # [place] # Seg Neutrophils % Seg Neuts % (Manual) Lymphocytes % (Manual) Seg Neutrophils # Seg Neutrophils # Man Lymphocytes # (Manual) Eosinophils % (Manual) Monocytes # (Manual) Eosinophils # (Manual) D-Dimer Heparin Anti-Xa Level ABG pH POC ABG pCO2 POC ABG pO2 ABG pO2 ABG HCO3 ABG O2 Saturation ABG Base Excess ABG Hemoglobin ABG Oxyhemoglobin VBG pH Oxyhemoglobin Sodium Potassium Chloride Carbon Dioxide BUN Creatinine Glucose POC Glucose 109 H 158 H 162 H Lactic Acid Calcium Ferritin AST Alkaline Phosphatase Lactate Dehydrogenase Total Creatine Kinase CK-MB (CK-2) C-Reactive Protein Total Protein Albumin Troponin T HDL Cholesterol Urine WBC (Auto) Urine Creatinine Urine Total Protein Coronavirus (PCR) Crossmatch 06/27/20 06/27/20 06/28/20 18:43 23:46 04:05 WBC RBC Hgb 7.7 L Hct 22.1 L MCHC RDW Lymph % (Auto) [place] % (Auto) Eos % (Auto) Lymph # [place] # Seg Neutrophils % Seg Neuts % (Manual) Lymphocytes % (Manual) Seg Neutrophils # Seg Neutrophils # Man Lymphocytes # (Manual) Eosinophils % (Manual) Monocytes # (Manual) Eosinophils # (Manual) D-Dimer Heparin Anti-Xa Level ABG pH POC ABG pCO2 POC ABG pO2 ABG pO2 102.7 H ABG HCO3 28.7 H ABG O2 Saturation ABG Base Excess 3.7 H ABG Hemoglobin ABG Oxyhemoglobin VBG pH Oxyhemoglobin Sodium Potassium Chloride Carbon Dioxide BUN Creatinine Glucose POC Glucose 142 H Lactic Acid Calcium Ferritin AST Alkaline Phosphatase Lactate Dehydrogenase Total Creatine Kinase CK-MB (CK-2) C-Reactive Protein Total Protein Albumin Troponin T HDL Cholesterol Urine WBC (Auto) Urine Creatinine Urine Total Protein Coronavirus (PCR) Crossmatch 06/28/20 06/28/20 06/28/20 09:47 09:47 12:02 WBC RBC 2.53 L Hgb 7.4 L Hct 22.2 L MCHC RDW 16.8 H Lymph % (Auto) [place] % (Auto) 13.5 H Eos % (Auto) Lymph # 1.1 L [place] # 1.0 H Seg Neutrophils % Seg Neuts % (Manual) Lymphocytes % (Manual) Seg Neutrophils # Seg Neutrophils # Man Lymphocytes # (Manual) Eosinophils % (Manual) Monocytes # (Manual) Eosinophils # (Manual) D-Dimer Heparin Anti-Xa Level ABG pH POC ABG pCO2 POC ABG pO2 ABG pO2 ABG HCO3 ABG O2 Saturation ABG Base Excess ABG Hemoglobin ABG Oxyhemoglobin VBG pH Oxyhemoglobin Sodium Potassium Chloride Carbon Dioxide BUN 80 H Creatinine 1.5 H Glucose 139 H POC Glucose 169 H Lactic Acid Calcium 7.9 L Ferritin AST Alkaline Phosphatase Lactate Dehydrogenase Total Creatine Kinase CK-MB (CK-2) C-Reactive Protein Total Protein 5.0 L Albumin 2.1 L Troponin T HDL Cholesterol Urine WBC (Auto) Urine Creatinine Urine Total Protein Coronavirus (PCR) Crossmatch 06/28/20 06/28/20 06/28/20 12:30 12:30 17:24 WBC RBC 2.38 L Hgb 7.3 L Hct 20.9 L MCHC 35 H RDW 16.7 H Lymph % (Auto) [place] % (Auto) Eos % (Auto) Lymph # [place] # Seg Neutrophils % Seg Neuts % (Manual) Lymphocytes % (Manual) Seg Neutrophils # Seg Neutrophils # Man Lymphocytes # (Manual) Eosinophils % (Manual) Monocytes # (Manual) Eosinophils # (Manual) D-Dimer Heparin Anti-Xa Level ABG pH POC ABG pCO2 POC ABG pO2 ABG pO2 ABG HCO3 ABG O2 Saturation ABG Base Excess ABG Hemoglobin ABG Oxyhemoglobin VBG pH Oxyhemoglobin Sodium Potassium Chloride Carbon Dioxide BUN 74 H Creatinine 1.5 H Glucose 143 H POC Glucose 173 H Lactic Acid Calcium 7.5 L Ferritin AST Alkaline Phosphatase Lactate Dehydrogenase Total Creatine Kinase CK-MB (CK-2) C-Reactive Protein Total Protein Albumin Troponin T HDL Cholesterol Urine WBC (Auto) Urine Creatinine Urine Total Protein Coronavirus (PCR) Crossmatch 06/29/20 06/29/20 06/29/20 00:02 03:54 04:38 WBC RBC 2.55 L Hgb 7.3 L Hct 22.4 L MCHC RDW 16.4 H Lymph % (Auto) 13.3 L [place] % (Auto) 12.5 H Eos % (Auto) Lymph # 1.1 L [place] # 1.0 H Seg Neutrophils % Seg Neuts % (Manual) Lymphocytes % (Manual) Seg Neutrophils # Seg Neutrophils # Man Lymphocytes # (Manual) Eosinophils % (Manual) Monocytes # (Manual) Eosinophils # (Manual) D-Dimer Heparin Anti-Xa Level ABG pH POC ABG pCO2 POC ABG pO2 ABG pO2 ABG HCO3 26.9 H ABG O2 Saturation ABG Base Excess ABG Hemoglobin 6.9 L ABG Oxyhemoglobin VBG pH Oxyhemoglobin Sodium Potassium Chloride Carbon Dioxide BUN Creatinine Glucose POC Glucose 142 H Lactic Acid Calcium Ferritin AST Alkaline Phosphatase Lactate Dehydrogenase Total Creatine Kinase CK-MB (CK-2) C-Reactive Protein Total Protein Albumin Troponin T HDL Cholesterol Urine WBC (Auto) Urine Creatinine Urine Total Protein Coronavirus (PCR) Crossmatch 06/29/20 06/29/20 06/29/20 04:38 05:38 12:25 WBC RBC Hgb Hct MCHC RDW Lymph % (Auto) [place] % (Auto) Eos % (Auto) Lymph # [place] # Seg Neutrophils % Seg Neuts % (Manual) Lymphocytes % (Manual) Seg Neutrophils # Seg Neutrophils # Man Lymphocytes # (Manual) Eosinophils % (Manual) Monocytes # (Manual) Eosinophils # (Manual) D-Dimer Heparin Anti-Xa Level ABG pH POC ABG pCO2 POC ABG pO2 ABG pO2 ABG HCO3 ABG O2 Saturation ABG Base Excess ABG Hemoglobin ABG Oxyhemoglobin VBG pH Oxyhemoglobin Sodium Potassium Chloride 107.8 H Carbon Dioxide BUN 72 H Creatinine 1.4 H Glucose 127 H POC Glucose 122 H 138 H Lactic Acid Calcium 7.4 L Ferritin AST Alkaline Phosphatase Lactate Dehydrogenase Total Creatine Kinase CK-MB (CK-2) C-Reactive Protein Total Protein Albumin Troponin T HDL Cholesterol Urine WBC (Auto) Urine Creatinine Urine Total Protein Coronavirus (PCR) Crossmatch 06/29/20 06/29/20 06/29/20 14:45 14:45 14:45 WBC RBC Hgb Hct MCHC RDW Lymph % (Auto) [place] % (Auto) Eos % (Auto) Lymph # [place] # Seg Neutrophils % Seg Neuts % (Manual) Lymphocytes % (Manual) Seg Neutrophils # Seg Neutrophils # Man Lymphocytes # (Manual) Eosinophils % (Manual) Monocytes # (Manual) Eosinophils # (Manual) D-Dimer 2310.15 H Heparin Anti-Xa Level ABG pH POC ABG pCO2 POC ABG pO2 ABG pO2 ABG HCO3 ABG O2 Saturation ABG Base Excess ABG Hemoglobin ABG Oxyhemoglobin VBG pH Oxyhemoglobin Sodium Potassium Chloride Carbon Dioxide BUN Creatinine Glucose POC Glucose Lactic Acid Calcium Ferritin 223.6 H AST Alkaline Phosphatase Lactate Dehydrogenase 367 H Total Creatine Kinase CK-MB (CK-2) C-Reactive Protein 3.60 H Total Protein Albumin Troponin T HDL Cholesterol Urine WBC (Auto) Urine Creatinine Urine Total Protein Coronavirus (PCR) Crossmatch 06/29/20 06/29/20 06/29/20 18:27 23:35 Unknown WBC RBC Hgb Hct MCHC RDW Lymph % (Auto) [place] % (Auto) Eos % (Auto) Lymph # [place] # Seg Neutrophils % Seg Neuts % (Manual) Lymphocytes % (Manual) Seg Neutrophils # Seg Neutrophils # Man Lymphocytes # (Manual) Eosinophils % (Manual) Monocytes # (Manual) Eosinophils # (Manual) D-Dimer Heparin Anti-Xa Level ABG pH POC ABG pCO2 POC ABG pO2 ABG pO2 ABG HCO3 ABG O2 Saturation ABG Base Excess ABG Hemoglobin ABG Oxyhemoglobin VBG pH Oxyhemoglobin Sodium Potassium Chloride Carbon Dioxide BUN Creatinine Glucose POC Glucose 112 H 140 H Lactic Acid Calcium Ferritin AST Alkaline Phosphatase Lactate Dehydrogenase Total Creatine Kinase CK-MB (CK-2) C-Reactive Protein Total Protein Albumin Troponin T HDL Cholesterol Urine WBC (Auto) Urine Creatinine Urine Total Protein Coronavirus (PCR) Positive A Crossmatch 06/30/20 06/30/20 06/30/20 04:10 04:10 06:09 WBC RBC 2.44 L Hgb 7.1 L Hct 21.5 L MCHC RDW 16.6 H Lymph % (Auto) 11.0 L [place] % (Auto) 10.8 H Eos % (Auto) Lymph # 0.9 L [place] # 0.9 H Seg Neutrophils % 73.7 H Seg Neuts % (Manual) Lymphocytes % (Manual) Seg Neutrophils # Seg Neutrophils # Man Lymphocytes # (Manual) Eosinophils % (Manual) Monocytes # (Manual) Eosinophils # (Manual) D-Dimer Heparin Anti-Xa Level ABG pH POC ABG pCO2 POC ABG pO2 ABG pO2 ABG HCO3 ABG O2 Saturation ABG Base Excess ABG Hemoglobin ABG Oxyhemoglobin VBG pH Oxyhemoglobin Sodium Potassium Chloride 109.1 H Carbon Dioxide BUN 74 H Creatinine 1.3 H Glucose 191 H POC Glucose 187 H Lactic Acid Calcium 7.8 L Ferritin AST Alkaline Phosphatase Lactate Dehydrogenase Total Creatine Kinase CK-MB (CK-2) C-Reactive Protein Total Protein Albumin Troponin T HDL Cholesterol Urine WBC (Auto) Urine Creatinine Urine Total Protein Coronavirus (PCR) Crossmatch 06/30/20 06/30/20 06/30/20 12:04 17:43 23:41 WBC RBC Hgb Hct MCHC RDW Lymph % (Auto) [place] % (Auto) Eos % (Auto) Lymph # [place] # Seg Neutrophils % Seg Neuts % (Manual) Lymphocytes % (Manual) Seg Neutrophils # Seg Neutrophils # Man Lymphocytes # (Manual) Eosinophils % (Manual) Monocytes # (Manual) Eosinophils # (Manual) D-Dimer Heparin Anti-Xa Level ABG pH POC ABG pCO2 POC ABG pO2 ABG pO2 ABG HCO3 ABG O2 Saturation ABG Base Excess ABG Hemoglobin ABG Oxyhemoglobin VBG pH Oxyhemoglobin Sodium Potassium Chloride Carbon Dioxide BUN Creatinine Glucose POC Glucose 112 H 177 H 143 H Lactic Acid Calcium Ferritin AST Alkaline Phosphatase Lactate Dehydrogenase Total Creatine Kinase CK-MB (CK-2) C-Reactive Protein Total Protein Albumin Troponin T HDL Cholesterol Urine WBC (Auto) Urine Creatinine Urine Total Protein Coronavirus (PCR) Crossmatch 07/01/20 07/01/20 07/01/20 05:02 05:52 06:01 WBC 12.6 H RBC 2.95 L Hgb 8.2 L Hct 26.0 L MCHC RDW 16.9 H Lymph % (Auto) [place] % (Auto) Eos % (Auto) Lymph # [place] # Seg Neutrophils % Seg Neuts % (Manual) Lymphocytes % (Manual) Seg Neutrophils # Seg Neutrophils # Man 8.6 H Lymphocytes # (Manual) Eosinophils % (Manual) 5.0 H Monocytes # (Manual) Eosinophils # (Manual) 0.6 H D-Dimer Heparin Anti-Xa Level ABG pH POC ABG pCO2 POC ABG pO2 ABG pO2 ABG HCO3 ABG O2 Saturation ABG Base Excess ABG Hemoglobin 8.2 L ABG Oxyhemoglobin VBG pH Oxyhemoglobin Sodium Potassium Chloride Carbon Dioxide BUN Creatinine Glucose POC Glucose 129 H Lactic Acid Calcium Ferritin AST Alkaline Phosphatase Lactate Dehydrogenase Total Creatine Kinase CK-MB (CK-2) C-Reactive Protein Total Protein Albumin Troponin T HDL Cholesterol Urine WBC (Auto) Urine Creatinine Urine Total Protein Coronavirus (PCR) Crossmatch 07/01/20 07/01/20 07/01/20 06:01 06:01 06:08 WBC RBC Hgb Hct MCHC RDW Lymph % (Auto) [place] % (Auto) Eos % (Auto) Lymph # [place] # Seg Neutrophils % Seg Neuts % (Manual) Lymphocytes % (Manual) Seg Neutrophils # Seg Neutrophils # Man Lymphocytes # (Manual) Eosinophils % (Manual) Monocytes # (Manual) Eosinophils # (Manual) D-Dimer Heparin Anti-Xa Level ABG pH POC ABG pCO2 POC ABG pO2 ABG pO2 ABG HCO3 ABG O2 Saturation ABG Base Excess ABG Hemoglobin ABG Oxyhemoglobin VBG pH Oxyhemoglobin Sodium 147 H Potassium Chloride 108.0 H Carbon Dioxide BUN 71 H Creatinine 1.3 H Glucose 193 H POC Glucose 192 H Lactic Acid Calcium 8.1 L Ferritin AST Alkaline Phosphatase Lactate Dehydrogenase Total Creatine Kinase 300 H CK-MB (CK-2) C-Reactive Protein Total Protein Albumin Troponin T 0.067 H HDL Cholesterol 61 H Urine WBC (Auto) Urine Creatinine Urine Total Protein Coronavirus (PCR) Crossmatch 07/01/20 07/01/20 07/02/20 12:23 17:40 00:18 WBC RBC Hgb Hct MCHC RDW Lymph % (Auto) [place] % (Auto) Eos % (Auto) Lymph # [place] # Seg Neutrophils % Seg Neuts % (Manual) Lymphocytes % (Manual) Seg Neutrophils # Seg Neutrophils # Man Lymphocytes # (Manual) Eosinophils % (Manual) Monocytes # (Manual) Eosinophils # (Manual) D-Dimer Heparin Anti-Xa Level ABG pH POC ABG pCO2 POC ABG pO2 ABG pO2 ABG HCO3 ABG O2 Saturation ABG Base Excess ABG Hemoglobin ABG Oxyhemoglobin VBG pH Oxyhemoglobin Sodium Potassium Chloride Carbon Dioxide BUN Creatinine Glucose POC Glucose 111 H 135 H 145 H Lactic Acid Calcium Ferritin AST Alkaline Phosphatase Lactate Dehydrogenase Total Creatine Kinase CK-MB (CK-2) C-Reactive Protein Total Protein Albumin Troponin T HDL Cholesterol Urine WBC (Auto) Urine Creatinine Urine Total Protein Coronavirus (PCR) Crossmatch 07/02/20 07/02/20 07/02/20 04:11 04:23 05:54 WBC RBC Hgb Hct MCHC RDW Lymph % (Auto) [place] % (Auto) Eos % (Auto) Lymph # [place] # Seg Neutrophils % Seg Neuts % (Manual) Lymphocytes % (Manual) Seg Neutrophils # Seg Neutrophils # Man Lymphocytes # (Manual) Eosinophils % (Manual) Monocytes # (Manual) Eosinophils # (Manual) D-Dimer Heparin Anti-Xa Level ABG pH POC ABG pCO2 POC ABG pO2 ABG pO2 ABG HCO3 ABG O2 Saturation ABG Base Excess ABG Hemoglobin 5.4 L ABG Oxyhemoglobin VBG pH Oxyhemoglobin Sodium Potassium Chloride 108.6 H Carbon Dioxide BUN 72 H Creatinine Glucose 112 H POC Glucose 137 H Lactic Acid Calcium 7.8 L Ferritin AST Alkaline Phosphatase Lactate Dehydrogenase Total Creatine Kinase CK-MB (CK-2) C-Reactive Protein Total Protein Albumin Troponin T HDL Cholesterol Urine WBC (Auto) Urine Creatinine Urine Total Protein Coronavirus (PCR) Crossmatch 07/02/20 07/02/20 07/02/20 11:38 18:04 23:59 WBC RBC Hgb Hct MCHC RDW Lymph % (Auto) [place] % (Auto) Eos % (Auto) Lymph # [place] # Seg Neutrophils % Seg Neuts % (Manual) Lymphocytes % (Manual) Seg Neutrophils # Seg Neutrophils # Man Lymphocytes # (Manual) Eosinophils % (Manual) Monocytes # (Manual) Eosinophils # (Manual) D-Dimer Heparin Anti-Xa Level ABG pH POC ABG pCO2 POC ABG pO2 ABG pO2 ABG HCO3 ABG O2 Saturation ABG Base Excess ABG Hemoglobin ABG Oxyhemoglobin VBG pH Oxyhemoglobin Sodium Potassium Chloride Carbon Dioxide BUN Creatinine Glucose POC Glucose 128 H 135 H 156 H Lactic Acid Calcium Ferritin AST Alkaline Phosphatase Lactate Dehydrogenase Total Creatine Kinase CK-MB (CK-2) C-Reactive Protein Total Protein Albumin Troponin T HDL Cholesterol Urine WBC (Auto) Urine Creatinine Urine Total Protein Coronavirus (PCR) Crossmatch 07/03/20 07/03/20 07/03/20 03:49 06:00 11:31 WBC RBC Hgb Hct MCHC RDW Lymph % (Auto) [place] % (Auto) Eos % (Auto) Lymph # [place] # Seg Neutrophils % Seg Neuts % (Manual) Lymphocytes % (Manual) Seg Neutrophils # Seg Neutrophils # Man Lymphocytes # (Manual) Eosinophils % (Manual) Monocytes # (Manual) Eosinophils # (Manual) D-Dimer Heparin Anti-Xa Level ABG pH POC ABG pCO2 POC ABG pO2 ABG pO2 121.0 H ABG HCO3 ABG O2 Saturation ABG Base Excess ABG Hemoglobin 8.5 L ABG Oxyhemoglobin VBG pH Oxyhemoglobin Sodium Potassium Chloride Carbon Dioxide BUN Creatinine Glucose POC Glucose 135 H 141 H Lactic Acid Calcium Ferritin AST Alkaline Phosphatase Lactate Dehydrogenase Total Creatine Kinase CK-MB (CK-2) C-Reactive Protein Total Protein Albumin Troponin T HDL Cholesterol Urine WBC (Auto) Urine Creatinine Urine Total Protein Coronavirus (PCR) Crossmatch Chest x-ray: other (none today) Allied health notes reviewed: nursing
[2020-07-03 16:31] LABS: ABG Base Excess -1.7 mmol/L (-2.0-3.0); ABG HCO3 23.8 mmol/L (20.0-26.0); ABG Methemoglobin 0.6 % (0.0-1.5); ABG Oxygen Saturation 98.3 % (95.0-99.0); ABG PCO2 44.1 mm Hg; ABG PH 7.35 pH Units (7.350-7.450); ABG PO2 126.9 mm Hg (80.0-90.0)
[2020-07-03] MEDS: INSULIN GLARGINE 100 UNITS/ML SUB-Q SCH (21:09)
[2020-07-04] MEDS: INSULIN LISPRO 100 UNIT/ML VIAL 3 mL SUB-Q SCH ×3 (01:07→13:10)
[2020-07-04] MEDS: METOCLOPRAMIDE 10 MG/2 ML INJ IV SCH ×3 (01:07→13:13)
--- NOTE | 2020-07-04 03:32 | XRay Report ---
CHEST 1 VIEW 07/04/2020 2:20 AM INDICATION / CLINICAL INFORMATION: Pneumonia; ETT position. COMPARISON: 07/01/2020 FINDINGS: SUPPORT DEVICES: ET tube tip is about 4 cm above the christopher. Feeding tube is seen extending below the diaphragm. HEART / MEDIASTINUM: Stable. LUNGS / PLEURA: Stable bilateral mid and lower lung streaky parenchymal opacities. No pneumothorax. ADDITIONAL FINDINGS: No significant additional findings. IMPRESSION: 1. No concerning change from prior. Signer Name: Gurpreet Rueda MD Signed: 07/04/2020 3:27 AM Workstation Name: [id number]
[2020-07-04] MEDS: CEFEPIME/NS 2 GM/100 ML 2 GM/100 ML BAG IV SCH (05:36)
[2020-07-04] MEDS: HEPARIN 5,000 UNIT/1 ML VIAL SUB-Q SCH ×2 (05:36→13:09)
[2020-07-04] MEDS: hydrALAZINE 25 MG TAB PO SCH ×3 (06:07→22:00)
--- NOTE | 2020-07-04 08:34 | Progress Note ---
Assessment and Plan Assessment and plan: -- s/p cardiac arrest 07/01/2020,s/p CPR per ACLS protocol, refer to code sheet Intubated on vent, full CODE STATUS s/p Cardiac arrest on admission and on 06/26 Cardiology team on board Conservative management as per cardiology --Febrile illness with sepsis persistently positive for COVID-19 and Klebsiella pneumoniae Continue empiric antibiotics - Continue cefepime 2 g IV every 8 hours for now, ID following, completed treatment for COVID-19 -- Acute hypoxemic respiratory failure From COVID-19 viral infection and Klebsiella pneumoniae, intubated on admission extubated on 06/12/20 then placed on high flow o2 patient developed another respiratory arrest on 06/26 - reintubated CC following --COVID-19 positive since 05/28/2020 Completed treatment, ID following Repeat test 06/29 still positive --Superficial left cephalic vein DVT/elevated D-dimers[COVID 19] Patient is on heparin drip from 05/29/20 D-dimers improved [phone] s/p heparin drip, Discussed with ID, treated with Eliquis 5 mg twice a day for 1 week[per ID] stop date 06/26/2020 -- Acute metabolic encephalopathy, POA likely from sepsis and s/p cardiac arrest with possible anoxic injury -- Acute renal failure: likely ATN Resolved, avoid nephrotoxins Nephrology following -- Coronavirus infection with b/l PNA Completed remdesivir on 06/02 Completed dexamethasone - Last dose 06/07 ID recs appreciated. --Klebsiella pneumonia: Initially completed antibiotics with cefepime Repeat sputum culture still positive for Klebsiella, restarted antibiotic --CHF (congestive heart failure) Cardiology following. Ef 45% -- Coffee ground emesis -Stress ulcers Possible stress ulcers, On PPI H/H again dropped - transfuse GI evaluation -- Hypertension; moderate control Continue amlodipine, coreg, clonidine and hydralazine --Mild LFT elevation: likely from COVID-19. cont to monitor -- DVT prophylaxis Eliquis, SCD to bilateral lower extremities while in bed -- Advance care planning Patient is critically ill with multiple medical problems Poor prognosis, family updated and requesting full code The high probability of a clinically significant, sudden or life threatening deterioration of the [CVS, renal, respiratory, E BUSINESS CONSULTANT] system(s) required my full and direct attention, intervention and personal management. The aggregate critical care time was [32] minutes. This time is in addition to time spent performing reported procedures but includes the following: [x] Data Review and interpretation [x] Patient assessment and monitoring of vital signs [x] Documentation [x] Medication orders and management History Interval history: I have seen and examined the patient at the bedside Patient remains intubated on ventilatory support Vent dependent, if unable to wean may need trach and PEG Morbidly obese Vital signs reviewed Hospitalist Physical - Constitutional Vitals: Temp Pulse Resp BP Pulse Ox 99.8 F H 74 16 136/59 100 07/04/20 04:00 07/04/20 06:01 07/04/20 06:01 07/04/20 06:01 07/04/20 05:00 General appearance: Present: mild distress, well-nourished, obese (Morbidly obese), other (On high flow oxygen) - EENT Eyes: Present: PERRL, EOM intact - Neck Neck: Present: supple, normal ROM - Respiratory Respiratory effort: normal Respiratory: bilateral: diminished, rhonchi, negative: rales, wheezing - Cardiovascular Rhythm: regular Heart Sounds: Present: S1 & S2 - Extremities Extremities: no ischemia, No edema - Abdominal General gastrointestinal: soft, non-tender, non-distended, normal bowel sounds - Integumentary Integumentary: Present: clear, warm - Psychiatric Psychiatric: other (Intubated on vent) - Neurologic Neurologic: other (Intubated on vent) HEART Score - HEART Score Troponin: Troponin T 0.067 ng/mL (0.00-0.029) H 07/01/20 06:01 Results - Labs CBC & Chem 7: 07/01/20 06:01 07/02/20 04:23 Labs: Laboratory Last Values WBC 12.6 K/mm3 (4.5-11.0) H 07/01/20 06:01 RBC 2.95 M/mm3 (3.65-5.03) L 07/01/20 06:01 Hgb 8.2 gm/dl (10.1-14.3) L 07/01/20 06:01 Hct 26.0 % (30.3-42.9) L 07/01/20 06:01 MCV 88 fl (79-97) 07/01/20 06:01 MCH 28 pg (28-32) 07/01/20 06:01 MCHC 32 % (30-34) 07/01/20 06:01 RDW 16.9 % (13.2-15.2) H 07/01/20 06:01 Plt Count 421 K/mm3 (140-440) 07/01/20 06:01 Lymph % (Auto) 11.0 % (13.4-35.0) L 06/30/20 04:10 Oliver % (Auto) 10.8 % (0.0-7.3) H 06/30/20 04:10 Eos % (Auto) 3.9 % (0.0-4.3) 06/30/20 04:10 Baso % (Auto) 0.6 % (0.0-1.8) 06/30/20 04:10 Lymph # 0.9 K/mm3 (1.2-5.4) L 06/30/20 04:10 Oliver # 0.9 K/mm3 (0.0-0.8) H 06/30/20 04:10 Eos # 0.3 K/mm3 (0.0-0.4) 06/30/20 04:10 Baso # 0.1 K/mm3 (0.0-0.1) 06/30/20 04:10 Seg Neutrophils % 73.7 % (40.0-70.0) H 06/30/20 04:10 Add Manual Diff Complete 07/01/20 06:01 Total Counted 100 07/01/20 06:01 Seg Neutrophils # 6.2 K/mm3 (1.8-7.7) 06/30/20 04:10 Seg Neuts % (Manual) 68.0 % (40.0-70.0) 07/01/20 06:01 Band Neutrophils % 0 % 07/01/20 06:01 Lymphocytes % (Manual) 23.0 % (13.4-35.0) 07/01/20 06:01 Reactive Lymphs % (Man) 0 % 07/01/20 06:01 Monocytes % (Manual) 1.0 % (0.0-7.3) 07/01/20 06:01 Eosinophils % (Manual) 5.0 % (0.0-4.3) H 07/01/20 06:01 Basophils % (Manual) 1.0 % (0.0-1.8) 07/01/20 06:01 Metamyelocytes % 2.0 % 07/01/20 06:01 Myelocytes % 0 % 07/01/20 06:01 Promyelocytes % 0 % 07/01/20 06:01 Blast Cells % 0 % 07/01/20 06:01 Nucleated RBC % Not Reportable 07/01/20 06:01 Seg Neutrophils # Man 8.6 K/mm3 (1.8-7.7) H 07/01/20 06:01 Band Neutrophils # 0.0 K/mm3 07/01/20 06:01 Lymphocytes # (Manual) 2.9 K/mm3 (1.2-5.4) 07/01/20 06:01 Abs React Lymphs (Man) 0.0 K/mm3 07/01/20 06:01 Monocytes # (Manual) 0.1 K/mm3 (0.0-0.8) 07/01/20 06:01 Eosinophils # (Manual) 0.6 K/mm3 (0.0-0.4) H 07/01/20 06:01 Basophils # (Manual) 0.1 K/mm3 (0.0-0.1) 07/01/20 06:01 Metamyelocytes # 0.3 K/mm3 07/01/20 06:01 Myelocytes # 0.0 K/mm3 07/01/20 06:01 Promyelocytes # 0.0 K/mm3 07/01/20 06:01 Blast Cells # 0.0 K/mm3 07/01/20 06:01 WBC Morphology Not Reportable 07/01/20 06:01 Hypersegmented Neuts Not Reportable 07/01/20 06:01 Hyposegmented Neuts Not Reportable 07/01/20 06:01 Hypogranular Neuts Not Reportable 07/01/20 06:01 Smudge Cells Not Reportable 07/01/20 06:01 Toxic Granulation Not Reportable 07/01/20 06:01 Toxic Vacuolation Not Reportable 07/01/20 06:01 Dohle Bodies Not Reportable 07/01/20 06:01 Pelger-Huet Anomaly Not Reportable 07/01/20 06:01 Sanjuanita Rods Not Reportable 07/01/20 06:01 Platelet Estimate Consistent w auto 07/01/20 06:01 Clumped Platelets Not Reportable 07/01/20 06:01 Plt Clumps, EDTA Not Reportable 07/01/20 06:01 Large Platelets Not Reportable 07/01/20 06:01 Giant Platelets Not Reportable 07/01/20 06:01 Platelet Satelliting Not Reportable 07/01/20 06:01 Plt Morphology Comment Not Reportable 07/01/20 06:01 RBC Morphology Not Reportable 07/01/20 06:01 Dimorphic RBCs Not Reportable 07/01/20 06:01 Polychromasia Not Reportable 07/01/20 06:01 Hypochromasia Not Reportable 07/01/20 06:01 Poikilocytosis Not Reportable 07/01/20 06:01 Anisocytosis Few 07/01/20 06:01 Microcytosis Not Reportable 07/01/20 06:01 Macrocytosis Not Reportable 07/01/20 06:01 Spherocytes Not Reportable 07/01/20 06:01 Pappenheimer Bodies Not Reportable 07/01/20 06:01 Sickle Cells Not Reportable 07/01/20 06:01 Target Cells Not Reportable 07/01/20 06:01 Tear Drop Cells Not Reportable 07/01/20 06:01 Ovalocytes Not Reportable 07/01/20 06:01 Helmet Cells Not Reportable 07/01/20 06:01 Jones-Poston Bodies Not Reportable 07/01/20 06:01 [place] Rings Not Reportable 07/01/20 06:01 Julia Cells Not Reportable 07/01/20 06:01 Bite Cells Not Reportable 07/01/20 06:01 Crenated Cell Not Reportable 07/01/20 06:01 Elliptocytes Not Reportable 07/01/20 06:01 Acanthocytes (Spur) Not Reportable 07/01/20 06:01 Rouleaux Not Reportable 07/01/20 06:01 Hemoglobin C Crystals Not Reportable 07/01/20 06:01 Schistocytes Not Reportable 07/01/20 06:01 Malaria parasites Not Reportable 07/01/20 06:01 Kev Bodies Not Reportable 07/01/20 06:01 Hem Pathologist Commnt No 07/01/20 06:01 PT 14.2 Sec. (12.2-14.9) 05/29/20 15:10 INR 1.08 (0.87-1.13) 05/29/20 15:10 APTT 27.2 Sec. (24.2-36.6) 05/29/20 15:10 D-Dimer 2310.15 ng/mlDDU (0-234) H 06/29/20 14:45 Heparin Anti-Xa Level 0.34 U.I./ml (0.3-0.7) 06/19/20 10:46 ABG pH 7.350 pH Units (7.350-7.450) 07/03/20 16:07 POC ABG pCO2 35.8 mmHg (32.0-48.0) 07/01/20 05:02 ABG pCO2 44.1 mm Hg 07/03/20 16:07 ABG Oxyhemoglobin 92.6 (94-98) L 06/23/20 12:34 POC ABG pO2 90.8 mmHg (83-108) 07/01/20 05:02 ABG pO2 126.9 mm Hg (80.0-90.0) H 07/03/20 16:07 POC ABG HCO3 22.1 07/01/20 05:02 ABG HCO3 23.8 mmol/L (20.0-26.0) 07/03/20 16:07 ABG O2 Saturation 98.3 % (95.0-99.0) 07/03/20 16:07 ABG O2 Content 11.2 (0.0-44) 07/03/20 16:07 POC ABG Base Excess -2.3 07/01/20 05:02 ABG Base Excess -1.7 mmol/L (-2.0-3.0) 07/03/20 16:07 ABG Hemoglobin 8.1 gm/dl (12.0-16.0) L 07/03/20 16:07 ABG Carboxyhemoglobin 1.5 % (0.0-5.0) 07/03/20 16:07 ABG Methemoglobin 0.6 % (0.0-1.5) 07/03/20 16:07 VBG pH 7.152 (7.320-7.420) L* 05/28/20 13:47 Carboxyhemoglobin 0.5 (0.5-1.5) 06/23/20 12:34 Oxyhemoglobin 96.3 % (95.0-99.0) 07/03/20 16:07 FiO2 40 % 07/03/20 16:07 Sodium 144 mmol/L (137-145) 07/02/20 04:23 Potassium 3.8 mmol/L (3.6-5.0) 07/02/20 04:23 Chloride 108.6 mmol/L (98-107) H 07/02/20 04:23 Carbon Dioxide 24 mmol/L (22-30) 07/02/20 04:23 Anion Gap 15 mmol/L 07/02/20 04:23 BUN 72 mg/dL (7-17) H 07/02/20 04:23 Creatinine 1.2 mg/dL (0.6-1.2) 07/02/20 04:23 Estimated GFR 46 ml/min 07/02/20 04:23 BUN/Creatinine Ratio 60 % 07/02/20 04:23 Glucose 112 mg/dL (65-100) H 07/02/20 04:23 POC Glucose 128 (70-105) H 07/04/20 05:49 Lactic Acid 0.60 mmol/L (0.7-2.0) L 06/27/20 05:00 Calcium 7.8 mg/dL (8.4-10.2) L 07/02/20 04:23 Ferritin 223.6 ng/mL (10.0-200.0) H 06/29/20 14:45 Total Bilirubin 0.20 mg/dL (0.1-1.2) 06/28/20 09:47 AST 24 units/L (5-40) 06/28/20 09:47 ALT 21 units/L (7-56) 06/28/20 09:47 Alkaline Phosphatase 113 units/L (35-129) 06/28/20 09:47 Lactate Dehydrogenase 367 units/L (91-180) H 06/29/20 14:45 C-Reactive Protein 3.60 mg/dL (0.00-1.30) H 06/29/20 14:45 Total Protein 5.0 g/dL (6.3-8.2) L 06/28/20 09:47 Albumin 2.1 g/dL (3.9-5) L 06/28/20 09:47 Albumin/Globulin Ratio 0.7 % 06/28/20 09:47 Total Creatine Kinase 300 units/L (30-135) H 07/01/20 06:01 CK-MB (CK-2) 2.0 ng/mL (0.0-4.0) 07/01/20 06:01 CK-MB (CK-2) Rel Index 0.6 (0-4) 07/01/20 06:01 Troponin T 0.067 ng/mL (0.00-0.029) H 07/01/20 06:01 Triglycerides 142 mg/dL (2-149) 07/01/20 06:01 Cholesterol 137 mg/dL (50-199) 07/01/20 06:01 LDL Cholesterol Direct 62 mg/dL (50-130) 07/01/20 06:01 HDL Cholesterol 61 mg/dL (40-59) H 07/01/20 06:01 Cholesterol/HDL Ratio 2.24 % 07/01/20 06:01 Procalcitonin 2.45 ng/mL (<0.15) 06/29/20 14:45 Urine Color Yellow (Yellow) 06/06/20 04:00 Urine Turbidity Cloudy (Clear) 06/06/20 04:00 Urine pH 5.0 (5.0-7.0) 06/06/20 04:00 Ur Specific [place] 1.012 (1.003-1.030) 06/06/20 04:00 Urine Protein 100 mg/dl mg/dL (Negative) 06/06/20 04:00 Urine Glucose (UA) 50 mg/dL (Negative) 06/06/20 04:00 Urine Ketones Neg mg/dL (Negative) 06/06/20 04:00 Urine Blood Sm (Negative) 06/06/20 04:00 Urine Nitrite Neg (Negative) 06/06/20 04:00 Urine Bilirubin Neg (Negative) 06/06/20 04:00 Urine Urobilinogen < 2.0 mg/dL (<2.0) 06/06/20 04:00 Ur Leukocyte Esterase Neg (Negative) 06/06/20 04:00 Urine WBC (Auto) 15.0 /HPF (0.0-6.0) H 06/06/20 04:00 Urine RBC (Auto) 23.0 /HPF (0.0-6.0) 06/06/20 04:00 U Epithel Cells (Auto) 8.0 /HPF (0-13.0) 06/06/20 04:00 Urine Bacteria (Auto) 2+ /HPF (Negative) 06/06/20 04:00 Amorphous Crystals 1+ 06/06/20 04:00 Hyaline Casts 16 /LPF 06/06/20 04:00 Urine Mucus 2+ /HPF 06/06/20 04:00 Urine Yeast (Budding) 2+ /HPF 06/03/20 Unknown Urine Creatinine 82.2 mg/dL (0.1-20.0) H 06/06/20 04:00 Urine Sodium 20 mmol/L 06/06/20 04:00 Urine Total Protein 196 mg/dL (5-11.8) H 06/06/20 04:00 Nasal Screen MRSA (PCR) Negative (Negative) 06/29/20 08:30 Coronavirus (PCR) Positive (Negative) A 06/29/20 Unknown Blood Type A POSITIVE 06/26/20 09:27 Antibody Screen Negative 06/26/20 09:27 Crossmatch See Detail 06/26/20 09:27 Microbiology: Microbiology 06/28/20 12:30 Peripheral/Venous Blood Culture - Final NO GROWTH AFTER 5 DAYS 06/28/20 12:30 Peripheral/Venous Blood Culture - Final NO GROWTH AFTER 5 DAYS - Diagnostic Impressions Diagnostic Impressions: Echocardiogram Limited Views 05/29/20 13:52 Transthoracic Echocardiogram Indication: Pulm Embolus BP: 169/76 HR: 85 Conclusions *Limited study for RV size post cardiopulmonar arrest. *RV is only slightly dilated, no significant difference from prior echo 05/13/2020. *Global left ventricular systolic function is at the lower limits of normal. *The estimated ejection fraction is 45-50%. *Mild to moderate concentric left ventricular hypertrophy is observed. *The left and right atria are both mild to moderately dilated. Findings Left Ventricle: The left ventricular chamber size is mildly dilated. Mild to moderate concentric left ventricular hypertrophy is observed. Global left ventricular systolic function is at the lower limits of normal. The estimated ejection fraction is 45-50%. Left Atrium: The left atrium is mild to moderately dilated. Right Ventricle: The right ventricle is slightly dilated. Right Atrium: The right atrium is mild to moderately dilated. Aortic Valve: The aortic valve leaflets are moderately thickened. Mitral Valve: There is mitral annular calcification. The mitral valve leaflets are moderately thickened. Tricuspid Valve: The tricuspid valve leaflets are mildly thickened. Pericardium: A trivial pericardial effusion is visualized. NDUM: 05/29/20 1808 Amended Report Transthoracic Echocardiogram Indication: Pulm Embolus BP: 169/76 HR: 85 Conclusions *Limited study for RV size post cardiopulmonary arrest. *RV is only slightly dilated, no significant difference from prior echo 05/13/2020. *Global left ventricular systolic function is at the lower limits of normal. *The estimated ejection fraction is 45-50%. *Mild to moderate concentric left ventricular hypertrophy is observed. *The left and right atria are both mild to moderately dilated. Findings Left Ventricle: The left ventricular chamber size is mildly dilated. Mild to moderate concentric left ventricular hypertrophy is observed. Global left ventricular systolic function is at the lower limits of normal. The estimated ejection fraction is 45-50%. Left Atrium: The left atrium is mild to moderately dilated. Right Ventricle: The right ventricle is slightly dilated. Right Atrium: The right atrium is mild to moderately dilated. Aortic Valve: The aortic valve leaflets are moderately thickened. Mitral Valve: There is mitral annular calcification. The mitral valve leaflets are moderately thickened. Tricuspid Valve: The tricuspid valve leaflets are mildly thickened. Pericardium: A trivial pericardial effusion is visualized. Helm/IV: Voiding Method Indwelling Catheter IV Catheter Type [Left Wrist] INT / Saline Lock IV Catheter Type [Left Upper Mid-line arm] IV Catheter Type [Right CVL Internal Jugular] IV Catheter Type [Right Hand] INT / Saline Lock IV Catheter Type [Right Wrist] Not found on patient IV Catheter Type [Left Hand] INT / Saline Lock IV Catheter Type [Left INT / Saline Lock Antecubital] IV Catheter Type [Right Peripheral IV Forearm] IV Catheter Type [Left Leg] Intra-osseous Active Medications - Current Medications Current Medications: Generic Name Dose Route Start Last Admin Trade Name Freq PRN Reason Stop Dose Admin Acetaminophen 650 mg 06/09/20 10:57 06/29/20 21:18 Tylenol FEEDTUBE 650 mg Q6H PRN Administration Fever >101 Amlodipine Besylate 10 mg 06/02/20 11:00 07/03/20 09:05 Amlodipine PO 10 mg DAILY NELSON Administration Lipase/Protease/Amylase 1 each 05/29/20 13:39 06/24/20 22:[address] 10,500 Unit FEEDTUBE 1 each PRN PRN Administration For Clogged Feeding Tube Carvedilol 12.5 mg 06/03/20 10:00 07/03/20 21:08 Coreg PO 12.5 mg BID NELSON Administration Clonidine HCl 0.2 mg 06/23/20 22:00 07/03/20 21:08 Catapres PO 0.2 mg Q12HR NELSON Administration Glycopyrrolate 2 mg 06/09/20 14:00 07/03/20 21:08 Glycopyrrolate PO 2 mg TID NELSON Administration Heparin Sodium (Porcine) 5,000 unit 06/30/20 14:00 07/04/20 05:36 Heparin SUB-Q 5,000 unit Q8HR NELSON Administration Hydralazine HCl 50 mg 06/03/20 09:00 07/04/20 06:07 Apresoline PO Not Given Q8HR NELSON Hydrophilic Ointment 1 applic 05/28/20 13:49 Vaseline Lip Therapy TP Q2HR PRN Dry Lips Vasopressin 20 unit/ Sodium 101 mls @ 9.09 mls/hr 06/26/20 19:00 06/26/20 19:30 Chloride IV 0 units/min TITR NELSON 0 mls/hr Titration Protocol 0.03 UNITS/MIN Norepinephrine 4 mg in 250 mls @ 7.5 mls/hr 06/26/20 19:00 06/26/20 20:06 Levophed Drip 4 Mg/Ns 250 Ml IV 0 mcg/min TITR NELSON 0 mls/hr Titration Protocol 2 MCG/MIN Phenylephrine HCl 100 mg/ 100 mls @ 3 mls/hr 06/26/20 18:15 Sodium Chloride IV TITR NELSON Protocol 50 MCG/MIN Cefepime HCl 2 gm in 100 mls @ 200 mls/hr 06/28/20 13:00 07/04/20 05:36 Cefepime/Ns 2 Gm/100 Ml IV 07/04/20 12:59 200 mls/hr Q8HR NELSON Administration Protocol Sodium Chloride 500 mls @ 5 mls/hr 06/30/20 22:00 06/30/20 21:42 Nacl 0.9% 500 Ml IV 5 mls/hr DIRECT NELSON Administration Insulin Glargine 10 units 06/08/20 22:00 07/03/20 21:09 Lantus SUB-Q 10 units QHS NELSON Administration Insulin Human Lispro 0 unit 05/29/20 18:00 07/04/20 06:14 Humalog SUB-Q Not Given Q6H [facility] Protocol Labetalol HCl 20 mg 06/03/20 09:00 07/02/20 13:21 Labetalol IV 20 mg Q4H PRN Administration HYPERTENSION Lansoprazole 30 mg 06/05/20 22:00 07/03/20 21:08 Prevacid Solutab FEEDTUBE 30 mg BID NELSON Administration Levetiracetam 500 mg 06/16/20 11:00 07/03/20 21:08 Keppra PO 500 mg BID NELSON Administration Lidocaine HCl 15 ml 06/26/20 20:00 07/03/20 21:09 Magic Mouthwash PO 15 ml TID NELOSN Administration Metoclopramide HCl 10 mg 06/10/20 20:00 07/04/20 01:07 Reglan IV 10 mg Q6H NELSON Administration Modafinil 100 mg 07/02/20 20:00 07/03/20 09:05 Provigil PO 100 mg DAILY NELSON Administration Multi-Ingred Cream/Lotion/Oil/Oint 1 applic 05/28/20 13:49 Artificial Tears Ophth Oint OU Q4HR PRN Dry Eye(s) Ondansetron HCl 4 mg 06/02/20 09:00 06/09/20 16:48 Zofran IV 4 mg Q8H PRN Administration Nausea And Vomiting Scopolamine 1 each 06/05/20 14:00 07/02/20 09:33 Transderm-Scop TD 1 each Q3D NELSON Administration Senna 17.6 mg 06/03/20 10:00 07/03/20 21:08 Senokot FEEDTUBE 17.6 mg BID NELSON Administration Simple Syrup 15 ml 05/29/20 13:39 Simple Syrup FEEDTUBE PRN PRN Hypoglycemia Simple Syrup 30 ml 05/29/20 13:39 Simple Syrup FEEDTUBE PRN PRN Hypoglycemia Sodium Bicarbonate 325 mg 05/29/20 13:39 Sodium Bicarbonate FEEDTUBE PRN PRN For Clogged Feeding Tube Sodium Chloride 10 ml 05/28/20 22:00 07/03/20 21:10 Sodium Chloride Flush Syringe 10 Ml IV 10 ml BID NELSON Administration Sodium Chloride 10 ml 05/28/20 19:08 06/16/20 17:50 Sodium Chloride Flush Syringe 10 Ml IV 10 ml PRN PRN Administration LINE FLUSH Nutrition/Malnutrition Assess - Dietary Evaluation Nutrition/Malnutrition Findings: Nutrition Notes Start: 05/29/20 11:45 Freq: Status: Active Protocol: Document 07/03/20 11:16 [email or web address] (Rec: 07/03/20 12:21 [email or web address]) Co-Sign 07/03/20 11:16 LP Nutrition Notes Initial or Follow up Reassessment Current Diagnosis Acute Kidney Injury,Diabetes, Heart Failure,Respiratory Failure Other Pertinent Diagnosis COVID-19 (+) Current Diet Glucerna 1.2 at 55ml/hr Labs/Tests Reviewed Pertinent Medications Reviewed Height 5 ft 6 in Weight 123 kg [place] Body Weight (kg) 59.09 BMI 43.7 Weight Status Morbidly Obese Subjective/Other Information F/U for TF tolerance, rate, water. Per RN, Pt TF stopped for 1 hr yesterday d/t high residuals. TF running at 50ml/ hr. Percent of energy/protein needs met: 90%/48% Burn Absent Trauma Absent Current % PO Negligible Minimum of two criteria No physical signs of malnutrition Fluid Accumulation Mild (non-severe) #1 Nutrition Diagnosis Inadequate oral intake Diagnosis Progress(for reassessment Continues documentation) Is patient on ventilator? Yes Is Patient Ambulatory and/or Out of Bed No REE-([facility]-confined to bed) 2172.576 Kcal/Kg value to use for calculation 13 Approximate Energy Requirements Using 1599 kcal/Kg Calculation Used for Recommendations Kcal/kg Additional Notes Protein needs up to 148g (up to 2.5g/kg IBW) Fluid needs 1ml/kcal Nutrition Intervention Change Diet Order: Continue Nutrition Support: Glucerna 1.2 at 55ml/hr Flush 100ml q4h Kcal 1,584 Protein (gm) 79 Fluid (mL) 1,062 Goal #1 TF tolerance Goal #2 TF to meet at least 65%-70% energy and 80% pro needs Anticipated Discharge Needs: Unable to determine at this time Follow-Up By: 07/06/20 Additional Comments F/U TF tolerance
[2020-07-04] MEDS: LANSOPRAZOLE 30 MG SOLUTAB FEEDTUBE SCH (10:12)
[2020-07-04] MEDS: levETIRAcetam 500 MG/5 ML ORAL LIQD PO SCH (10:12)
[2020-07-04] MEDS: MODAFINIL 100 MG TAB PO SCH (10:12)
[2020-07-04] MEDS: carvediloL 12.5 MG TAB PO SCH (10:12)
[2020-07-04] MEDS: GLYCOPYRROLATE 2 MG TAB PO SCH ×2 (10:13→13:09)
[2020-07-04] MEDS: amLODIPine 10 MG TAB PO SCH (10:13)
[2020-07-04] MEDS: SENNOSIDES ORAL LIQD 8.8 MG/5 ML ORAL LIQD FEEDTUBE SCH (10:13)
[2020-07-04] MEDS: cloNIDine 0.2 MG TAB PO SCH (10:13)
[2020-07-04] MEDS: MAGIC MOUTHWASH 30ML PO SCH ×2 (10:14→13:09)
--- NOTE | 2020-07-04 17:08 | Progress Note ---
Assessment and Plan Acute hypoxemic respiratory failure on MVS Coronavirus-19 infection. Bilateral pulmonary infiltrates, bilateral pneumonia plus likely element of Pulmonary edema. Bilateral pulmonary edema. Bilateral pleural effusions. History of congestive heart failure. Morbid obesity. History of pulmonary hypertension. History of hypertension. Diabetes. Obesity hypoventilation syndrome. Elevated serum inflammatory markers to include D-dimers and LDH levels. Hyperkalemia at presentation. Metabolic acidosis. Oropharyngeal dysphagia. (AMS is a rate limiting factor to safe extubation; tracheostomy may ultimately be required if persistent) - continue Modafinil re: lethargy / somnolence - continue daytime PSV trials as tolerated - advance tube feeds to goal rate as tolerated - continue Reglan - continue care as below otherwise; - Daily SAT and SBT assessment as tolerated - continue to wean supplemental oxygen for target O2 sat's > 90% acutely - VAP bundle addressed - continue lung protective strategies - continue bronchodilators with pulmonary hygiene per RT - wean per pulmonary driven protocols otherwise - continue accuchecks resumed with glycemic control per SSI (While critically ill target blood glucose of 140-180 mg/dL; avoid hypoglycemia) - sedation prn for target RASS 0 to -1 - continue to avoid benzodiazepine's, reduce the possibility of delirium - completed AB's per ID rec's - prn analgesia per CPOT score - Maintenance of sleep-wake cycle, avoid delirium - continue enteral nutritional support at goal rate as tolerated - G.I. & VTE prophylaxis with heparin & famotidine - PT/OT/ROM exercises - continue mobility protocols for pressure ulcer prophylaxis - Monitor hemodynamics closely - continue other care per attending / other consultants - discharge planning ongoing concurrently (LTAC evaluation is appropriate) .... Re-evaluate in am & prn CONDITION: CRITICAL PROGNOSIS: GUARDED CODE STATUS: FULL CODE The high probability of a clinically significant, sudden or life-threatening deterioration of the [respiratory, cardiovascular, GI & neurologic] system(s) required my full and direct attention, intervention and personal management. The aggregate critical care time was [36] minutes without overlap. Time includes spent on; [x] Data Review and interpretation [x] Patient assessment and monitoring of vital signs [x] Documentation [x] Medication orders and management Subjective Date of service: 07/04/20 Principal diagnosis: Ac hypoxemic resp failure; COVID-19; pneumonia; CHF; Pulm HTN; OHS; DM II Interval history: Patient is seen today for: Ac hypoxemic resp failure; Coronavirus-19 infection; pneumonia; Pulmonary edema; Bilateral pleural effusions; CHF; Morbid obesity; pulmonary hypertension; OHS; DM II Seen and examined at bedside; 24hour events reviewed; nursing and respiratory care staff consulted; no adverse overnight events reported to me; resting peacefully in bed; remains on MVS; tolerating PSV trials a little better however AMS is persistent; no emesis or overt aspiration Objective Vital Signs - 12hr 07/04/20 07/04/20 07/04/20 06:01 07:00 08:00 Pulse Rate 74 71 69 Pulse Rate [ 73 From Monitor] Respiratory 16 15 15 Rate Blood Pressure 136/59 154/55 161/60 O2 Sat by Pulse 100 100 Oximetry 07/04/20 07/04/20 07/04/20 08:30 09:01 09:53 Pulse Rate 70 68 77 Pulse Rate [ From Monitor] Respiratory 16 22 Rate Blood Pressure 158/65 143/56 145/85 O2 Sat by Pulse 99 100 98 Oximetry 07/04/20 07/04/20 07/04/20 10:01 10:12 10:13 Pulse Rate 76 75 75 Pulse Rate [ From Monitor] Respiratory 22 Rate Blood Pressure 164/64 164/64 164/64 O2 Sat by Pulse 99 Oximetry 07/04/20 07/04/20 07/04/20 11:01 11:29 12:00 Pulse Rate 72 75 65 Pulse Rate [ 69 From Monitor] Respiratory 25 H 23 20 Rate Blood Pressure 147/65 172/64 148/65 O2 Sat by Pulse 99 98 100 Oximetry 07/04/20 07/04/20 07/04/20 13:00 13:09 14:01 Pulse Rate 71 74 76 Pulse Rate [ From Monitor] Respiratory 22 27 H Rate Blood Pressure 159/66 159/66 146/53 O2 Sat by Pulse 99 99 Oximetry 07/04/20 07/04/20 15:00 16:03 Pulse Rate 78 77 Pulse Rate [ From Monitor] Respiratory 26 H 25 H Rate Blood Pressure 132/53 132/53 O2 Sat by Pulse 97 97 Oximetry Constitutional: appears uncomfortable, other (elderly looking obese female on HF NC with mildly increased respiratory effort at rest on MVS) Eyes: non-icteric ENT: oropharynx dry, other (ETT 23-24 cm AYAN) Neck: supple, no lymphadenopathy, no JVD, other (large neck circumference) Effort: mildly labored Ascultation: Bilateral: diminished breath sounds, rhonchi (scant) Percussion: Bilateral: not dull Cardiovascular: regular rate and rhythm, other (S1,S2) Gastrointestinal: normoactive bowel sounds, soft, non-tender, non-distended Integumentary: normal Extremities: no cyanosis, no edema, pink and warm, pulses normal, no ischemia or petechiae Neurologic: pupils equal and round, unable to assess, other (lethargic to obtunded) Psychiatric: other (unable to assess re: AMS) CBC and BMP: 07/05/20 01:12 07/02/20 04:23 ABG, PT/INR, D-dimer: ABG ABG pH 7.350 pH Units (7.350-7.450) 07/03/20 16:07 POC ABG pCO2 35.8 mmHg (32.0-48.0) 07/01/20 05:02 ABG pCO2 44.1 mm Hg 07/03/20 16:07 POC ABG pO2 90.8 mmHg (83-108) 07/01/20 05:02 ABG pO2 126.9 mm Hg (80.0-90.0) H 07/03/20 16:07 POC ABG HCO3 22.1 07/01/20 05:02 ABG O2 Saturation 98.3 % (95.0-99.0) 07/03/20 16:07 PT/INR, D-dimer PT 14.2 Sec. (12.2-14.9) 05/29/20 15:10 INR 1.08 (0.87-1.13) 05/29/20 15:10 D-Dimer 2310.15 ng/mlDDU (0-234) H 06/29/20 14:45 Abnormal lab findings: Abnormal Labs 05/28/20 05/28/20 05/28/20 13:29 13:47 13:47 WBC RBC Hgb Hct MCHC RDW 15.3 H Lymph % (Auto) [place] % (Auto) Eos % (Auto) Lymph # [place] # Seg Neutrophils % Seg Neuts % (Manual) Lymphocytes % (Manual) Seg Neutrophils # Seg Neutrophils # Man Lymphocytes # (Manual) Eosinophils % (Manual) Monocytes # (Manual) Eosinophils # (Manual) D-Dimer Heparin Anti-Xa Level ABG pH POC ABG pCO2 POC ABG pO2 ABG pO2 ABG HCO3 ABG O2 Saturation ABG Base Excess ABG Hemoglobin ABG Oxyhemoglobin VBG pH Oxyhemoglobin Sodium Potassium 6.6 H* Chloride 109.2 H Carbon Dioxide 17 L BUN 29 H Creatinine 1.3 H Glucose 265 H POC Glucose 248 H Lactic Acid Calcium 8.1 L Ferritin AST 63 H Alkaline Phosphatase Lactate Dehydrogenase Total Creatine Kinase 301 H CK-MB (CK-2) 4.3 H C-Reactive Protein Total Protein 5.4 L Albumin 2.6 L Troponin T HDL Cholesterol Urine WBC (Auto) Urine Creatinine Urine Total Protein Coronavirus (PCR) Crossmatch 05/28/20 05/28/20 05/28/20 13:47 13:47 14:46 WBC RBC Hgb Hct MCHC RDW Lymph % (Auto) [place] % (Auto) Eos % (Auto) Lymph # [place] # Seg Neutrophils % Seg Neuts % (Manual) Lymphocytes % (Manual) Seg Neutrophils # Seg Neutrophils # Man Lymphocytes # (Manual) Eosinophils % (Manual) Monocytes # (Manual) Eosinophils # (Manual) D-Dimer Heparin Anti-Xa Level ABG pH POC ABG pCO2 POC ABG pO2 ABG pO2 ABG HCO3 ABG O2 Saturation ABG Base Excess ABG Hemoglobin ABG Oxyhemoglobin VBG pH 7.152 L* Oxyhemoglobin Sodium Potassium 7.2 H* Chloride Carbon Dioxide BUN Creatinine Glucose POC Glucose Lactic Acid 3.40 H* Calcium Ferritin AST Alkaline Phosphatase Lactate Dehydrogenase Total Creatine Kinase CK-MB (CK-2) C-Reactive Protein Total Protein Albumin Troponin T HDL Cholesterol Urine WBC (Auto) Urine Creatinine Urine Total Protein Coronavirus (PCR) Crossmatch 05/28/20 05/28/20 05/28/20 15:33 15:33 15:51 WBC RBC Hgb Hct MCHC RDW Lymph % (Auto) [place] % (Auto) Eos % (Auto) Lymph # [place] # Seg Neutrophils % Seg Neuts % (Manual) Lymphocytes % (Manual) Seg Neutrophils # Seg Neutrophils # Man Lymphocytes # (Manual) Eosinophils % (Manual) Monocytes # (Manual) Eosinophils # (Manual) D-Dimer 8780.43 H Heparin Anti-Xa Level ABG pH 7.284 L POC ABG pCO2 POC ABG pO2 ABG pO2 273.0 H ABG HCO3 ABG O2 Saturation 99.4 H ABG Base Excess -6.1 L ABG Hemoglobin 17.2 H ABG Oxyhemoglobin VBG pH Oxyhemoglobin Sodium Potassium Chloride Carbon Dioxide BUN Creatinine Glucose 152 H POC Glucose Lactic Acid Calcium Ferritin AST Alkaline Phosphatase Lactate Dehydrogenase 365 H Total Creatine Kinase CK-MB (CK-2) C-Reactive Protein Total Protein Albumin Troponin T HDL Cholesterol Urine WBC (Auto) Urine Creatinine Urine Total Protein Coronavirus (PCR) Crossmatch 05/28/20 05/28/20 05/28/20 16:30 20:41 23:20 WBC RBC Hgb Hct MCHC RDW Lymph % (Auto) [place] % (Auto) Eos % (Auto) Lymph # [place] # Seg Neutrophils % Seg Neuts % (Manual) Lymphocytes % (Manual) Seg Neutrophils # Seg Neutrophils # Man Lymphocytes # (Manual) Eosinophils % (Manual) Monocytes # (Manual) Eosinophils # (Manual) D-Dimer Heparin Anti-Xa Level ABG pH POC ABG pCO2 POC ABG pO2 ABG pO2 ABG HCO3 ABG O2 Saturation ABG Base Excess ABG Hemoglobin ABG Oxyhemoglobin VBG pH Oxyhemoglobin Sodium Potassium Chloride Carbon Dioxide BUN Creatinine Glucose POC Glucose 225 H 224 H Lactic Acid Calcium Ferritin AST Alkaline Phosphatase Lactate Dehydrogenase Total Creatine Kinase CK-MB (CK-2) C-Reactive Protein Total Protein Albumin Troponin T HDL Cholesterol Urine WBC (Auto) 17.0 H Urine Creatinine Urine Total Protein Coronavirus (PCR) Crossmatch 05/28/20 05/29/20 05/29/20 Unknown 04:35 04:43 WBC RBC 3.48 L Hgb 9.8 L Hct 29.4 L MCHC RDW 16.0 H Lymph % (Auto) 7.4 L [place] % (Auto) Eos % (Auto) Lymph # 0.7 L [place] # Seg Neutrophils % 89.1 H Seg Neuts % (Manual) Lymphocytes % (Manual) Seg Neutrophils # 8.1 H Seg Neutrophils # Man Lymphocytes # (Manual) Eosinophils % (Manual) Monocytes # (Manual) Eosinophils # (Manual) D-Dimer Heparin Anti-Xa Level ABG pH POC ABG pCO2 POC ABG pO2 ABG pO2 ABG HCO3 19.3 L ABG O2 Saturation ABG Base Excess -4.5 L ABG Hemoglobin 9.7 L ABG Oxyhemoglobin VBG pH Oxyhemoglobin Sodium Potassium Chloride Carbon Dioxide BUN Creatinine Glucose POC Glucose Lactic Acid Calcium Ferritin AST Alkaline Phosphatase Lactate Dehydrogenase Total Creatine Kinase CK-MB (CK-2) C-Reactive Protein Total Protein Albumin Troponin T HDL Cholesterol Urine WBC (Auto) Urine Creatinine Urine Total Protein Coronavirus (PCR) Positive A Crossmatch 05/29/20 05/29/20 05/29/20 04:43 15:10 17:17 WBC RBC Hgb 9.3 L Hct 28.7 L MCHC RDW Lymph % (Auto) [place] % (Auto) Eos % (Auto) Lymph # [place] # Seg Neutrophils % Seg Neuts % (Manual) Lymphocytes % (Manual) Seg Neutrophils # Seg Neutrophils # Man Lymphocytes # (Manual) Eosinophils % (Manual) Monocytes # (Manual) Eosinophils # (Manual) D-Dimer Heparin Anti-Xa Level ABG pH POC ABG pCO2 POC ABG pO2 ABG pO2 ABG HCO3 ABG O2 Saturation ABG Base Excess ABG Hemoglobin ABG Oxyhemoglobin VBG pH Oxyhemoglobin Sodium Potassium Chloride 110.2 H Carbon Dioxide 18 L BUN 32 H Creatinine 1.4 H Glucose 180 H POC Glucose 147 H Lactic Acid Calcium Ferritin AST Alkaline Phosphatase Lactate Dehydrogenase Total Creatine Kinase CK-MB (CK-2) C-Reactive Protein Total Protein Albumin Troponin T HDL Cholesterol Urine WBC (Auto) Urine Creatinine Urine Total Protein Coronavirus (PCR) Crossmatch 05/30/20 05/30/20 05/30/20 00:08 00:12 04:15 WBC RBC Hgb Hct MCHC RDW Lymph % (Auto) [place] % (Auto) Eos % (Auto) Lymph # [place] # Seg Neutrophils % Seg Neuts % (Manual) Lymphocytes % (Manual) Seg Neutrophils # Seg Neutrophils # Man Lymphocytes # (Manual) Eosinophils % (Manual) Monocytes # (Manual) Eosinophils # (Manual) D-Dimer Heparin Anti-Xa Level 0.71 H ABG pH 7.460 H POC ABG pCO2 POC ABG pO2 ABG pO2 106.0 H ABG HCO3 18.9 L ABG O2 Saturation ABG Base Excess -4.4 L ABG Hemoglobin 6.8 L ABG Oxyhemoglobin VBG pH Oxyhemoglobin Sodium Potassium Chloride Carbon Dioxide BUN Creatinine Glucose POC Glucose 195 H Lactic Acid Calcium Ferritin AST Alkaline Phosphatase Lactate Dehydrogenase Total Creatine Kinase CK-MB (CK-2) C-Reactive Protein Total Protein Albumin Troponin T HDL Cholesterol Urine WBC (Auto) Urine Creatinine Urine Total Protein Coronavirus (PCR) Crossmatch 05/30/20 05/30/20 05/30/20 06:07 08:37 12:33 WBC RBC Hgb Hct MCHC RDW Lymph % (Auto) [place] % (Auto) Eos % (Auto) Lymph # [place] # Seg Neutrophils % Seg Neuts % (Manual) Lymphocytes % (Manual) Seg Neutrophils # Seg Neutrophils # Man Lymphocytes # (Manual) Eosinophils % (Manual) Monocytes # (Manual) Eosinophils # (Manual) D-Dimer Heparin Anti-Xa Level 0.85 H ABG pH POC ABG pCO2 POC ABG pO2 ABG pO2 ABG HCO3 ABG O2 Saturation ABG Base Excess ABG Hemoglobin ABG Oxyhemoglobin VBG pH Oxyhemoglobin Sodium Potassium Chloride Carbon Dioxide BUN Creatinine Glucose POC Glucose 182 H 187 H Lactic Acid Calcium Ferritin AST Alkaline Phosphatase Lactate Dehydrogenase Total Creatine Kinase CK-MB (CK-2) C-Reactive Protein Total Protein Albumin Troponin T HDL Cholesterol Urine WBC (Auto) Urine Creatinine Urine Total Protein Coronavirus (PCR) Crossmatch 05/30/20 05/30/20 05/30/20 15:58 17:57 23:36 WBC RBC Hgb Hct MCHC RDW Lymph % (Auto) [place] % (Auto) Eos % (Auto) Lymph # [place] # Seg Neutrophils % Seg Neuts % (Manual) Lymphocytes % (Manual) Seg Neutrophils # Seg Neutrophils # Man Lymphocytes # (Manual) Eosinophils % (Manual) Monocytes # (Manual) Eosinophils # (Manual) D-Dimer Heparin Anti-Xa Level 1.03 H ABG pH POC ABG pCO2 POC ABG pO2 ABG pO2 ABG HCO3 ABG O2 Saturation ABG Base Excess ABG Hemoglobin ABG Oxyhemoglobin VBG pH Oxyhemoglobin Sodium Potassium Chloride Carbon Dioxide BUN Creatinine Glucose POC Glucose 208 H 185 H Lactic Acid Calcium Ferritin AST Alkaline Phosphatase Lactate Dehydrogenase Total Creatine Kinase CK-MB (CK-2) C-Reactive Protein Total Protein Albumin Troponin T HDL Cholesterol Urine WBC (Auto) Urine Creatinine Urine Total Protein Coronavirus (PCR) Crossmatch 05/31/20 05/31/20 05/31/20 02:16 03:55 06:16 WBC RBC Hgb 9.2 L Hct 27.5 L MCHC RDW Lymph % (Auto) [place] % (Auto) Eos % (Auto) Lymph # [place] # Seg Neutrophils % Seg Neuts % (Manual) Lymphocytes % (Manual) Seg Neutrophils # Seg Neutrophils # Man Lymphocytes # (Manual) Eosinophils % (Manual) Monocytes # (Manual) Eosinophils # (Manual) D-Dimer Heparin Anti-Xa Level ABG pH POC ABG pCO2 POC ABG pO2 ABG pO2 94.7 H ABG HCO3 18.6 L ABG O2 Saturation ABG Base Excess -5.5 L ABG Hemoglobin 7.9 L ABG Oxyhemoglobin VBG pH Oxyhemoglobin Sodium Potassium Chloride Carbon Dioxide BUN Creatinine Glucose POC Glucose 160 H Lactic Acid Calcium Ferritin AST Alkaline Phosphatase Lactate Dehydrogenase Total Creatine Kinase CK-MB (CK-2) C-Reactive Protein Total Protein Albumin Troponin T HDL Cholesterol Urine WBC (Auto) Urine Creatinine Urine Total Protein Coronavirus (PCR) Crossmatch 05/31/20 05/31/20 05/31/20 12:20 13:03 18:13 WBC RBC Hgb Hct MCHC RDW Lymph % (Auto) [place] % (Auto) Eos % (Auto) Lymph # [place] # Seg Neutrophils % Seg Neuts % (Manual) Lymphocytes % (Manual) Seg Neutrophils # Seg Neutrophils # Man Lymphocytes # (Manual) Eosinophils % (Manual) Monocytes # (Manual) Eosinophils # (Manual) D-Dimer Heparin Anti-Xa Level ABG pH POC ABG pCO2 POC ABG pO2 ABG pO2 ABG HCO3 ABG O2 Saturation ABG Base Excess ABG Hemoglobin ABG Oxyhemoglobin VBG pH Oxyhemoglobin Sodium Potassium Chloride Carbon Dioxide 18 L BUN 48 H Creatinine 1.6 H Glucose 115 H POC Glucose 128 H 159 H Lactic Acid Calcium 8.3 L Ferritin AST Alkaline Phosphatase Lactate Dehydrogenase Total Creatine Kinase CK-MB (CK-2) C-Reactive Protein Total Protein 5.4 L Albumin 2.4 L Troponin T HDL Cholesterol Urine WBC (Auto) Urine Creatinine Urine Total Protein Coronavirus (PCR) Crossmatch 05/31/20 06/01/20 06/01/20 23:51 04:00 05:48 WBC RBC Hgb Hct MCHC RDW Lymph % (Auto) [place] % (Auto) Eos % (Auto) Lymph # [place] # Seg Neutrophils % Seg Neuts % (Manual) Lymphocytes % (Manual) Seg Neutrophils # Seg Neutrophils # Man Lymphocytes # (Manual) Eosinophils % (Manual) Monocytes # (Manual) Eosinophils # (Manual) D-Dimer Heparin Anti-Xa Level ABG pH POC ABG pCO2 POC ABG pO2 ABG pO2 109.8 H ABG HCO3 18.8 L ABG O2 Saturation ABG Base Excess -5.9 L ABG Hemoglobin 7.8 L ABG Oxyhemoglobin VBG pH Oxyhemoglobin Sodium Potassium Chloride Carbon Dioxide BUN Creatinine Glucose POC Glucose 171 H 133 H Lactic Acid Calcium Ferritin AST Alkaline Phosphatase Lactate Dehydrogenase Total Creatine Kinase CK-MB (CK-2) C-Reactive Protein Total Protein Albumin Troponin T HDL Cholesterol Urine WBC (Auto) Urine Creatinine Urine Total Protein Coronavirus (PCR) Crossmatch 06/01/20 06/01/20 06/02/20 12:28 17:29 00:08 WBC RBC Hgb Hct MCHC RDW Lymph % (Auto) [place] % (Auto) Eos % (Auto) Lymph # [place] # Seg Neutrophils % Seg Neuts % (Manual) Lymphocytes % (Manual) Seg Neutrophils # Seg Neutrophils # Man Lymphocytes # (Manual) Eosinophils % (Manual) Monocytes # (Manual) Eosinophils # (Manual) D-Dimer Heparin Anti-Xa Level ABG pH POC ABG pCO2 POC ABG pO2 ABG pO2 ABG HCO3 ABG O2 Saturation ABG Base Excess ABG Hemoglobin ABG Oxyhemoglobin VBG pH Oxyhemoglobin Sodium Potassium Chloride Carbon Dioxide BUN Creatinine Glucose POC Glucose 199 H 209 H 162 H Lactic Acid Calcium Ferritin AST Alkaline Phosphatase Lactate Dehydrogenase Total Creatine Kinase CK-MB (CK-2) C-Reactive Protein Total Protein Albumin Troponin T HDL Cholesterol Urine WBC (Auto) Urine Creatinine Urine Total Protein Coronavirus (PCR) Crossmatch 06/02/20 06/02/20 06/02/20 04:20 04:20 04:44 WBC RBC Hgb 10.0 L Hct MCHC RDW Lymph % (Auto) [place] % (Auto) Eos % (Auto) Lymph # [place] # Seg Neutrophils % Seg Neuts % (Manual) Lymphocytes % (Manual) Seg Neutrophils # Seg Neutrophils # Man Lymphocytes # (Manual) Eosinophils % (Manual) Monocytes # (Manual) Eosinophils # (Manual) D-Dimer Heparin Anti-Xa Level 0.10 L ABG pH POC ABG pCO2 POC ABG pO2 ABG pO2 150.6 H ABG HCO3 ABG O2 Saturation ABG Base Excess -4.1 L ABG Hemoglobin 11.8 L ABG Oxyhemoglobin VBG pH Oxyhemoglobin Sodium Potassium Chloride Carbon Dioxide BUN Creatinine Glucose POC Glucose Lactic Acid Calcium Ferritin AST Alkaline Phosphatase Lactate Dehydrogenase Total Creatine Kinase CK-MB (CK-2) C-Reactive Protein Total Protein Albumin Troponin T HDL Cholesterol Urine WBC (Auto) Urine Creatinine Urine Total Protein Coronavirus (PCR) Crossmatch 06/02/20 06/02/20 06/02/20 05:53 12:04 13:49 WBC RBC Hgb Hct MCHC RDW Lymph % (Auto) [place] % (Auto) Eos % (Auto) Lymph # [place] # Seg Neutrophils % Seg Neuts % (Manual) Lymphocytes % (Manual) Seg Neutrophils # Seg Neutrophils # Man Lymphocytes # (Manual) Eosinophils % (Manual) Monocytes # (Manual) Eosinophils # (Manual) D-Dimer Heparin Anti-Xa Level 0.28 L ABG pH POC ABG pCO2 POC ABG pO2 ABG pO2 ABG HCO3 ABG O2 Saturation ABG Base Excess ABG Hemoglobin ABG Oxyhemoglobin VBG pH Oxyhemoglobin Sodium Potassium Chloride Carbon Dioxide BUN Creatinine Glucose POC Glucose 149 H 220 H Lactic Acid Calcium Ferritin AST Alkaline Phosphatase Lactate Dehydrogenase Total Creatine Kinase CK-MB (CK-2) C-Reactive Protein Total Protein Albumin Troponin T HDL Cholesterol Urine WBC (Auto) Urine Creatinine Urine Total Protein Coronavirus (PCR) Crossmatch 06/02/20 06/02/20 06/03/20 13:49 18:31 00:42 WBC RBC Hgb Hct MCHC RDW Lymph % (Auto) [place] % (Auto) Eos % (Auto) Lymph # [place] # Seg Neutrophils % Seg Neuts % (Manual) Lymphocytes % (Manual) Seg Neutrophils # Seg Neutrophils # Man Lymphocytes # (Manual) Eosinophils % (Manual) Monocytes # (Manual) Eosinophils # (Manual) D-Dimer 769.68 H Heparin Anti-Xa Level ABG pH POC ABG pCO2 POC ABG pO2 ABG pO2 ABG HCO3 ABG O2 Saturation ABG Base Excess ABG Hemoglobin ABG Oxyhemoglobin VBG pH Oxyhemoglobin Sodium Potassium Chloride Carbon Dioxide BUN Creatinine Glucose POC Glucose 225 H 212 H Lactic Acid Calcium Ferritin AST Alkaline Phosphatase Lactate Dehydrogenase Total Creatine Kinase CK-MB (CK-2) C-Reactive Protein Total Protein Albumin Troponin T HDL Cholesterol Urine WBC (Auto) Urine Creatinine Urine Total Protein Coronavirus (PCR) Crossmatch 06/03/20 06/03/20 06/03/20 05:16 05:16 05:25 WBC 11.4 H RBC Hgb Hct MCHC RDW 16.4 H Lymph % (Auto) [place] % (Auto) Eos % (Auto) Lymph # [place] # Seg Neutrophils % Seg Neuts % (Manual) Lymphocytes % (Manual) Seg Neutrophils # Seg Neutrophils # Man Lymphocytes # (Manual) Eosinophils % (Manual) Monocytes # (Manual) Eosinophils # (Manual) D-Dimer Heparin Anti-Xa Level ABG pH POC ABG pCO2 POC ABG pO2 ABG pO2 160.9 H ABG HCO3 19.4 L ABG O2 Saturation ABG Base Excess -4.9 L ABG Hemoglobin 7.0 L ABG Oxyhemoglobin VBG pH Oxyhemoglobin Sodium Potassium Chloride Carbon Dioxide 18 L BUN 65 H Creatinine 2.0 H Glucose 175 H POC Glucose Lactic Acid Calcium 8.0 L Ferritin AST Alkaline Phosphatase Lactate Dehydrogenase Total Creatine Kinase CK-MB (CK-2) C-Reactive Protein Total Protein 5.5 L Albumin 2.2 L Troponin T HDL Cholesterol Urine WBC (Auto) Urine Creatinine Urine Total Protein Coronavirus (PCR) Crossmatch 06/03/20 06/03/20 06/03/20 06:07 11:58 18:24 WBC RBC Hgb Hct MCHC RDW Lymph % (Auto) [place] % (Auto) Eos % (Auto) Lymph # [place] # Seg Neutrophils % Seg Neuts % (Manual) Lymphocytes % (Manual) Seg Neutrophils # Seg Neutrophils # Man Lymphocytes # (Manual) Eosinophils % (Manual) Monocytes # (Manual) Eosinophils # (Manual) D-Dimer Heparin Anti-Xa Level ABG pH POC ABG pCO2 POC ABG pO2 ABG pO2 ABG HCO3 ABG O2 Saturation ABG Base Excess ABG Hemoglobin ABG Oxyhemoglobin VBG pH Oxyhemoglobin Sodium Potassium Chloride Carbon Dioxide BUN Creatinine Glucose POC Glucose 177 H 163 H 211 H Lactic Acid Calcium Ferritin AST Alkaline Phosphatase Lactate Dehydrogenase Total Creatine Kinase CK-MB (CK-2) C-Reactive Protein Total Protein Albumin Troponin T HDL Cholesterol Urine WBC (Auto) Urine Creatinine Urine Total Protein Coronavirus (PCR) Crossmatch 06/03/20 06/03/20 06/04/20 21:50 Unknown 00:26 WBC RBC Hgb Hct MCHC RDW Lymph % (Auto) [place] % (Auto) Eos % (Auto) Lymph # [place] # Seg Neutrophils % Seg Neuts % (Manual) Lymphocytes % (Manual) Seg Neutrophils # Seg Neutrophils # Man Lymphocytes # (Manual) Eosinophils % (Manual) Monocytes # (Manual) Eosinophils # (Manual) D-Dimer Heparin Anti-Xa Level ABG pH POC ABG pCO2 POC ABG pO2 ABG pO2 ABG HCO3 ABG O2 Saturation ABG Base Excess ABG Hemoglobin ABG Oxyhemoglobin VBG pH Oxyhemoglobin Sodium 135 L Potassium Chloride Carbon Dioxide 18 L BUN Creatinine Glucose POC Glucose 241 H Lactic Acid Calcium Ferritin AST Alkaline Phosphatase Lactate Dehydrogenase Total Creatine Kinase CK-MB (CK-2) C-Reactive Protein Total Protein Albumin Troponin T HDL Cholesterol Urine WBC (Auto) 11.0 H Urine Creatinine Urine Total Protein Coronavirus (PCR) Crossmatch 06/04/20 06/04/20 06/04/20 03:35 04:19 04:19 WBC RBC 3.15 L Hgb 8.9 L Hct 26.8 L D MCHC RDW 15.9 H Lymph % (Auto) 6.0 L [place] % (Auto) Eos % (Auto) Lymph # 0.6 L [place] # Seg Neutrophils % 86.6 H Seg Neuts % (Manual) Lymphocytes % (Manual) Seg Neutrophils # 9.1 H Seg Neutrophils # Man Lymphocytes # (Manual) Eosinophils % (Manual) Monocytes # (Manual) Eosinophils # (Manual) D-Dimer Heparin Anti-Xa Level ABG pH 7.331 L POC ABG pCO2 POC ABG pO2 ABG pO2 ABG HCO3 ABG O2 Saturation ABG Base Excess -4.7 L ABG Hemoglobin 11.0 L ABG Oxyhemoglobin VBG pH Oxyhemoglobin 93.9 L Sodium 136 L Potassium Chloride Carbon Dioxide 20 L BUN 73 H Creatinine 2.0 H Glucose 192 H POC Glucose Lactic Acid Calcium 8.0 L Ferritin AST Alkaline Phosphatase Lactate Dehydrogenase 271 H Total Creatine Kinase CK-MB (CK-2) C-Reactive Protein 2.20 H Total Protein 5.0 L Albumin 2.0 L Troponin T HDL Cholesterol Urine WBC (Auto) Urine Creatinine Urine Total Protein Coronavirus (PCR) Crossmatch 06/04/20 06/04/20 06/04/20 04:19 05:51 11:48 WBC RBC Hgb Hct MCHC RDW Lymph % (Auto) [place] % (Auto) Eos % (Auto) Lymph # [place] # Seg Neutrophils % Seg Neuts % (Manual) Lymphocytes % (Manual) Seg Neutrophils # Seg Neutrophils # Man Lymphocytes # (Manual) Eosinophils % (Manual) Monocytes # (Manual) Eosinophils # (Manual) D-Dimer 414.52 H Heparin Anti-Xa Level ABG pH POC ABG pCO2 POC ABG pO2 ABG pO2 ABG HCO3 ABG O2 Saturation ABG Base Excess ABG Hemoglobin ABG Oxyhemoglobin VBG pH Oxyhemoglobin Sodium Potassium Chloride Carbon Dioxide BUN Creatinine Glucose POC Glucose 179 H 213 H Lactic Acid Calcium Ferritin AST Alkaline Phosphatase Lactate Dehydrogenase Total Creatine Kinase CK-MB (CK-2) C-Reactive Protein Total Protein Albumin Troponin T HDL Cholesterol Urine WBC (Auto) Urine Creatinine Urine Total Protein Coronavirus (PCR) Crossmatch 06/04/20 06/05/20 06/05/20 18:25 00:16 05:00 WBC RBC Hgb Hct MCHC RDW Lymph % (Auto) [place] % (Auto) Eos % (Auto) Lymph # [place] # Seg Neutrophils % Seg Neuts % (Manual) Lymphocytes % (Manual) Seg Neutrophils # Seg Neutrophils # Man Lymphocytes # (Manual) Eosinophils % (Manual) Monocytes # (Manual) Eosinophils # (Manual) D-Dimer Heparin Anti-Xa Level ABG pH 7.286 L POC ABG pCO2 POC ABG pO2 ABG pO2 96.2 H ABG HCO3 ABG O2 Saturation ABG Base Excess -6.3 L ABG Hemoglobin 8.8 L ABG Oxyhemoglobin VBG pH Oxyhemoglobin 94.8 L Sodium Potassium Chloride Carbon Dioxide BUN Creatinine Glucose POC Glucose 238 H 183 H Lactic Acid Calcium Ferritin AST Alkaline Phosphatase Lactate Dehydrogenase Total Creatine Kinase CK-MB (CK-2) C-Reactive Protein Total Protein Albumin Troponin T HDL Cholesterol Urine WBC (Auto) Urine Creatinine Urine Total Protein Coronavirus (PCR) Crossmatch 06/05/20 06/05/20 06/05/20 05:39 07:25 07:25 WBC RBC 2.97 L Hgb 8.7 L Hct 25.7 L MCHC RDW 16.0 H Lymph % (Auto) 8.8 L [place] % (Auto) 13.3 H Eos % (Auto) Lymph # 0.8 L [place] # 1.3 H Seg Neutrophils % 77.3 H Seg Neuts % (Manual) Lymphocytes % (Manual) Seg Neutrophils # Seg Neutrophils # Man Lymphocytes # (Manual) Eosinophils % (Manual) Monocytes # (Manual) Eosinophils # (Manual) D-Dimer Heparin Anti-Xa Level ABG pH POC ABG pCO2 POC ABG pO2 ABG pO2 ABG HCO3 ABG O2 Saturation ABG Base Excess ABG Hemoglobin ABG Oxyhemoglobin VBG pH Oxyhemoglobin Sodium 133 L Potassium Chloride Carbon Dioxide 17 L BUN 89 H Creatinine 2.8 H Glucose 176 H POC Glucose 149 H Lactic Acid Calcium 7.7 L Ferritin AST Alkaline Phosphatase Lactate Dehydrogenase Total Creatine Kinase CK-MB (CK-2) C-Reactive Protein Total Protein 4.2 L Albumin 1.9 L Troponin T HDL Cholesterol Urine WBC (Auto) Urine Creatinine Urine Total Protein Coronavirus (PCR) Crossmatch 06/05/20 06/05/20 06/05/20 07:25 12:05 15:41 WBC RBC Hgb Hct MCHC RDW Lymph % (Auto) [place] % (Auto) Eos % (Auto) Lymph # [place] # Seg Neutrophils % Seg Neuts % (Manual) Lymphocytes % (Manual) Seg Neutrophils # Seg Neutrophils # Man Lymphocytes # (Manual) Eosinophils % (Manual) Monocytes # (Manual) Eosinophils # (Manual) D-Dimer Heparin Anti-Xa Level 0.76 H 0.81 H ABG pH POC ABG pCO2 POC ABG pO2 ABG pO2 ABG HCO3 ABG O2 Saturation ABG Base Excess ABG Hemoglobin ABG Oxyhemoglobin VBG pH Oxyhemoglobin Sodium Potassium Chloride Carbon Dioxide BUN Creatinine Glucose POC Glucose 198 H Lactic Acid Calcium Ferritin AST Alkaline Phosphatase Lactate Dehydrogenase Total Creatine Kinase CK-MB (CK-2) C-Reactive Protein Total Protein Albumin Troponin T HDL Cholesterol Urine WBC (Auto) Urine Creatinine Urine Total Protein Coronavirus (PCR) Crossmatch 06/05/20 06/05/20 06/06/20 18:08 23:25 04:00 WBC RBC Hgb Hct MCHC RDW Lymph % (Auto) [place] % (Auto) Eos % (Auto) Lymph # [place] # Seg Neutrophils % Seg Neuts % (Manual) Lymphocytes % (Manual) Seg Neutrophils # Seg Neutrophils # Man Lymphocytes # (Manual) Eosinophils % (Manual) Monocytes # (Manual) Eosinophils # (Manual) D-Dimer Heparin Anti-Xa Level ABG pH POC ABG pCO2 POC ABG pO2 ABG pO2 ABG HCO3 ABG O2 Saturation ABG Base Excess ABG Hemoglobin ABG Oxyhemoglobin VBG pH Oxyhemoglobin Sodium Potassium Chloride Carbon Dioxide BUN Creatinine Glucose POC Glucose 223 H 169 H Lactic Acid Calcium Ferritin AST Alkaline Phosphatase Lactate Dehydrogenase Total Creatine Kinase CK-MB (CK-2) C-Reactive Protein Total Protein Albumin Troponin T HDL Cholesterol Urine WBC (Auto) 15.0 H Urine Creatinine Urine Total Protein Coronavirus (PCR) Crossmatch 06/06/20 06/06/20 06/06/20 04:00 05:33 05:38 WBC RBC 2.97 L Hgb 8.7 L Hct 26.8 L MCHC RDW 16.8 H Lymph % (Auto) [place] % (Auto) Eos % (Auto) Lymph # [place] # Seg Neutrophils % Seg Neuts % (Manual) Lymphocytes % (Manual) Seg Neutrophils # Seg Neutrophils # Man Lymphocytes # (Manual) Eosinophils % (Manual) Monocytes # (Manual) Eosinophils # (Manual) D-Dimer Heparin Anti-Xa Level ABG pH POC ABG pCO2 POC ABG pO2 ABG pO2 ABG HCO3 ABG O2 Saturation ABG Base Excess ABG Hemoglobin ABG Oxyhemoglobin VBG pH Oxyhemoglobin Sodium Potassium Chloride Carbon Dioxide BUN Creatinine Glucose POC Glucose 186 H Lactic Acid Calcium Ferritin AST Alkaline Phosphatase Lactate Dehydrogenase Total Creatine Kinase CK-MB (CK-2) C-Reactive Protein Total Protein Albumin Troponin T HDL Cholesterol Urine WBC (Auto) Urine Creatinine 82.2 H Urine Total Protein 196 H Coronavirus (PCR) Crossmatch 06/06/20 06/06/20 06/06/20 05:38 12:25 17:03 WBC RBC Hgb Hct MCHC RDW Lymph % (Auto) [place] % (Auto) Eos % (Auto) Lymph # [place] # Seg Neutrophils % Seg Neuts % (Manual) Lymphocytes % (Manual) Seg Neutrophils # Seg Neutrophils # Man Lymphocytes # (Manual) Eosinophils % (Manual) Monocytes # (Manual) Eosinophils # (Manual) D-Dimer Heparin Anti-Xa Level ABG pH POC ABG pCO2 POC ABG pO2 ABG pO2 ABG HCO3 ABG O2 Saturation ABG Base Excess ABG Hemoglobin ABG Oxyhemoglobin VBG pH Oxyhemoglobin Sodium 134 L Potassium 5.2 H Chloride Carbon Dioxide 18 L BUN 97 H Creatinine 2.5 H Glucose 193 H POC Glucose 239 H 252 H Lactic Acid Calcium 7.5 L Ferritin AST Alkaline Phosphatase Lactate Dehydrogenase Total Creatine Kinase CK-MB (CK-2) C-Reactive Protein Total Protein 4.1 L Albumin 1.9 L Troponin T HDL Cholesterol Urine WBC (Auto) Urine Creatinine Urine Total Protein Coronavirus (PCR) Crossmatch 06/07/20 06/07/20 06/07/20 00:16 01:49 04:00 WBC RBC 2.91 L Hgb 8.4 L Hct 25.0 L MCHC RDW 16.1 H Lymph % (Auto) 5.7 L [place] % (Auto) 10.5 H Eos % (Auto) Lymph # 0.6 L [place] # 1.1 H Seg Neutrophils % 83.6 H Seg Neuts % (Manual) Lymphocytes % (Manual) Seg Neutrophils # 9.1 H Seg Neutrophils # Man Lymphocytes # (Manual) Eosinophils % (Manual) Monocytes # (Manual) Eosinophils # (Manual) D-Dimer Heparin Anti-Xa Level 0.26 L ABG pH POC ABG pCO2 POC ABG pO2 ABG pO2 ABG HCO3 ABG O2 Saturation ABG Base Excess ABG Hemoglobin ABG Oxyhemoglobin VBG pH Oxyhemoglobin Sodium Potassium Chloride Carbon Dioxide BUN Creatinine Glucose POC Glucose 173 H Lactic Acid Calcium Ferritin AST Alkaline Phosphatase Lactate Dehydrogenase Total Creatine Kinase CK-MB (CK-2) C-Reactive Protein Total Protein Albumin Troponin T HDL Cholesterol Urine WBC (Auto) Urine Creatinine Urine Total Protein Coronavirus (PCR) Crossmatch 06/07/20 06/07/20 06/07/20 04:00 04:54 05:51 WBC RBC Hgb Hct MCHC RDW Lymph % (Auto) [place] % (Auto) Eos % (Auto) Lymph # [place] # Seg Neutrophils % Seg Neuts % (Manual) Lymphocytes % (Manual) Seg Neutrophils # Seg Neutrophils # Man Lymphocytes # (Manual) Eosinophils % (Manual) Monocytes # (Manual) Eosinophils # (Manual) D-Dimer Heparin Anti-Xa Level ABG pH 7.317 L POC ABG pCO2 POC ABG pO2 ABG pO2 71.4 L ABG HCO3 ABG O2 Saturation 94.3 L ABG Base Excess -4.8 L ABG Hemoglobin 7.1 L ABG Oxyhemoglobin VBG pH Oxyhemoglobin 92.2 L Sodium 133 L Potassium Chloride Carbon Dioxide 18 L BUN 100 H Creatinine 2.5 H Glucose 158 H POC Glucose 168 H Lactic Acid Calcium 7.6 L Ferritin AST Alkaline Phosphatase Lactate Dehydrogenase Total Creatine Kinase CK-MB (CK-2) C-Reactive Protein Total Protein 4.7 L Albumin 2.0 L Troponin T HDL Cholesterol Urine WBC (Auto) Urine Creatinine Urine Total Protein Coronavirus (PCR) Crossmatch 06/07/20 06/07/20 06/07/20 12:03 17:17 20:10 WBC RBC Hgb Hct MCHC RDW Lymph % (Auto) [place] % (Auto) Eos % (Auto) Lymph # [place] # Seg Neutrophils % Seg Neuts % (Manual) Lymphocytes % (Manual) Seg Neutrophils # Seg Neutrophils # Man Lymphocytes # (Manual) Eosinophils % (Manual) Monocytes # (Manual) Eosinophils # (Manual) D-Dimer Heparin Anti-Xa Level 0.17 L ABG pH POC ABG pCO2 POC ABG pO2 ABG pO2 ABG HCO3 ABG O2 Saturation ABG Base Excess ABG Hemoglobin ABG Oxyhemoglobin VBG pH Oxyhemoglobin Sodium Potassium Chloride Carbon Dioxide BUN Creatinine Glucose POC Glucose 276 H 281 H Lactic Acid Calcium Ferritin AST Alkaline Phosphatase Lactate Dehydrogenase Total Creatine Kinase CK-MB (CK-2) C-Reactive Protein Total Protein Albumin Troponin T HDL Cholesterol Urine WBC (Auto) Urine Creatinine Urine Total Protein Coronavirus (PCR) Crossmatch 06/08/20 06/08/20 06/08/20 00:02 04:47 04:47 WBC 16.4 H RBC 3.07 L Hgb 8.6 L Hct 26.5 L MCHC RDW 16.3 H Lymph % (Auto) [place] % (Auto) Eos % (Auto) Lymph # [place] # Seg Neutrophils % Seg Neuts % (Manual) 90.0 H Lymphocytes % (Manual) 3.0 L Seg Neutrophils # Seg Neutrophils # Man 14.8 H Lymphocytes # (Manual) 0.5 L Eosinophils % (Manual) Monocytes # (Manual) 1.1 H Eosinophils # (Manual) D-Dimer Heparin Anti-Xa Level ABG pH POC ABG pCO2 POC ABG pO2 ABG pO2 ABG HCO3 ABG O2 Saturation ABG Base Excess ABG Hemoglobin ABG Oxyhemoglobin VBG pH Oxyhemoglobin Sodium 129 L Potassium Chloride 95.6 L Carbon Dioxide 17 L BUN 106 H Creatinine 2.5 H Glucose 213 H POC Glucose 242 H Lactic Acid Calcium 7.6 L Ferritin AST Alkaline Phosphatase Lactate Dehydrogenase Total Creatine Kinase CK-MB (CK-2) C-Reactive Protein Total Protein 5.0 L Albumin 2.1 L Troponin T HDL Cholesterol Urine WBC (Auto) Urine Creatinine Urine Total Protein Coronavirus (PCR) Crossmatch 06/08/20 06/08/20 06/08/20 05:40 11:55 17:54 WBC RBC Hgb Hct MCHC RDW Lymph % (Auto) [place] % (Auto) Eos % (Auto) Lymph # [place] # Seg Neutrophils % Seg Neuts % (Manual) Lymphocytes % (Manual) Seg Neutrophils # Seg Neutrophils # Man Lymphocytes # (Manual) Eosinophils % (Manual) Monocytes # (Manual) Eosinophils # (Manual) D-Dimer Heparin Anti-Xa Level ABG pH POC ABG pCO2 POC ABG pO2 ABG pO2 ABG HCO3 ABG O2 Saturation ABG Base Excess ABG Hemoglobin ABG Oxyhemoglobin VBG pH Oxyhemoglobin Sodium Potassium Chloride Carbon Dioxide BUN Creatinine Glucose POC Glucose 221 H 218 H 163 H Lactic Acid Calcium Ferritin AST Alkaline Phosphatase Lactate Dehydrogenase Total Creatine Kinase CK-MB (CK-2) C-Reactive Protein Total Protein Albumin Troponin T HDL Cholesterol Urine WBC (Auto) Urine Creatinine Urine Total Protein Coronavirus (PCR) Crossmatch 06/08/20 06/09/20 06/09/20 22:01 00:09 05:16 WBC 19.0 H RBC 3.35 L Hgb 9.2 L Hct 28.5 L MCHC RDW 16.3 H Lymph % (Auto) [place] % (Auto) Eos % (Auto) Lymph # [place] # Seg Neutrophils % Seg Neuts % (Manual) 85.0 H Lymphocytes % (Manual) 7.0 L Seg Neutrophils # Seg Neutrophils # Man 16.2 H Lymphocytes # (Manual) Eosinophils % (Manual) Monocytes # (Manual) 1.3 H Eosinophils # (Manual) D-Dimer Heparin Anti-Xa Level ABG pH POC ABG pCO2 POC ABG pO2 ABG pO2 ABG HCO3 ABG O2 Saturation ABG Base Excess ABG Hemoglobin ABG Oxyhemoglobin VBG pH Oxyhemoglobin Sodium Potassium Chloride Carbon Dioxide BUN Creatinine Glucose POC Glucose 182 H 150 H Lactic Acid Calcium Ferritin AST Alkaline Phosphatase Lactate Dehydrogenase Total Creatine Kinase CK-MB (CK-2) C-Reactive Protein Total Protein Albumin Troponin T HDL Cholesterol Urine WBC (Auto) Urine Creatinine Urine Total Protein Coronavirus (PCR) Crossmatch 06/09/20 06/09/20 06/09/20 05:16 05:24 11:29 WBC RBC Hgb Hct MCHC RDW Lymph % (Auto) [place] % (Auto) Eos % (Auto) Lymph # [place] # Seg Neutrophils % Seg Neuts % (Manual) Lymphocytes % (Manual) Seg Neutrophils # Seg Neutrophils # Man Lymphocytes # (Manual) Eosinophils % (Manual) Monocytes # (Manual) Eosinophils # (Manual) D-Dimer Heparin Anti-Xa Level ABG pH POC ABG pCO2 POC ABG pO2 ABG pO2 ABG HCO3 ABG O2 Saturation ABG Base Excess ABG Hemoglobin ABG Oxyhemoglobin VBG pH Oxyhemoglobin Sodium 133 L Potassium Chloride Carbon Dioxide 19 L BUN 109 H Creatinine 2.1 H Glucose 133 H POC Glucose 128 H 119 H Lactic Acid Calcium 7.7 L Ferritin AST Alkaline Phosphatase < 5 L Lactate Dehydrogenase Total Creatine Kinase CK-MB (CK-2) C-Reactive Protein Total Protein 4.6 L Albumin < 0.2 L Troponin T HDL Cholesterol Urine WBC (Auto) Urine Creatinine Urine Total Protein Coronavirus (PCR) Crossmatch 06/09/20 06/10/20 06/10/20 17:32 00:00 05:49 WBC RBC Hgb Hct MCHC RDW Lymph % (Auto) [place] % (Auto) Eos % (Auto) Lymph # [place] # Seg Neutrophils % Seg Neuts % (Manual) Lymphocytes % (Manual) Seg Neutrophils # Seg Neutrophils # Man Lymphocytes # (Manual) Eosinophils % (Manual) Monocytes # (Manual) Eosinophils # (Manual) D-Dimer Heparin Anti-Xa Level 0.19 L ABG pH POC ABG pCO2 POC ABG pO2 ABG pO2 ABG HCO3 ABG O2 Saturation ABG Base Excess ABG Hemoglobin ABG Oxyhemoglobin VBG pH Oxyhemoglobin Sodium Potassium Chloride Carbon Dioxide BUN Creatinine Glucose POC Glucose 106 H 117 H Lactic Acid Calcium Ferritin AST Alkaline Phosphatase Lactate Dehydrogenase Total Creatine Kinase CK-MB (CK-2) C-Reactive Protein Total Protein Albumin Troponin T HDL Cholesterol Urine WBC (Auto) Urine Creatinine Urine Total Protein Coronavirus (PCR) Crossmatch 06/10/20 06/10/20 06/10/20 05:54 07:40 11:40 WBC RBC Hgb Hct MCHC RDW Lymph % (Auto) [place] % (Auto) Eos % (Auto) Lymph # [place] # Seg Neutrophils % Seg Neuts % (Manual) Lymphocytes % (Manual) Seg Neutrophils # Seg Neutrophils # Man Lymphocytes # (Manual) Eosinophils % (Manual) Monocytes # (Manual) Eosinophils # (Manual) D-Dimer Heparin Anti-Xa Level ABG pH POC ABG pCO2 POC ABG pO2 ABG pO2 ABG HCO3 ABG O2 Saturation ABG Base Excess ABG Hemoglobin ABG Oxyhemoglobin VBG pH Oxyhemoglobin Sodium 146 H D Potassium Chloride Carbon Dioxide 20 L BUN 99 H Creatinine 1.9 H Glucose 121 H POC Glucose 127 H 138 H Lactic Acid Calcium 8.2 L Ferritin AST Alkaline Phosphatase Lactate Dehydrogenase Total Creatine Kinase CK-MB (CK-2) C-Reactive Protein Total Protein Albumin Troponin T HDL Cholesterol Urine WBC (Auto) Urine Creatinine Urine Total Protein Coronavirus (PCR) Crossmatch 06/10/20 06/10/20 06/10/20 14:44 17:31 23:22 WBC RBC Hgb Hct MCHC RDW Lymph % (Auto) [place] % (Auto) Eos % (Auto) Lymph # [place] # Seg Neutrophils % Seg Neuts % (Manual) Lymphocytes % (Manual) Seg Neutrophils # Seg Neutrophils # Man Lymphocytes # (Manual) Eosinophils % (Manual) Monocytes # (Manual) Eosinophils # (Manual) D-Dimer Heparin Anti-Xa Level 0.17 L ABG pH POC ABG pCO2 POC ABG pO2 ABG pO2 ABG HCO3 ABG O2 Saturation ABG Base Excess ABG Hemoglobin ABG Oxyhemoglobin VBG pH Oxyhemoglobin Sodium Potassium Chloride Carbon Dioxide BUN Creatinine Glucose POC Glucose 128 H 114 H Lactic Acid Calcium Ferritin AST Alkaline Phosphatase Lactate Dehydrogenase Total Creatine Kinase CK-MB (CK-2) C-Reactive Protein Total Protein Albumin Troponin T HDL Cholesterol Urine WBC (Auto) Urine Creatinine Urine Total Protein Coronavirus (PCR) Crossmatch 06/11/20 06/11/20 06/11/20 00:22 03:45 03:45 WBC 14.6 H RBC 2.77 L Hgb 7.9 L Hct 24.3 L MCHC RDW 16.8 H Lymph % (Auto) 6.6 L [place] % (Auto) 8.5 H Eos % (Auto) Lymph # 1.0 L [place] # 1.2 H Seg Neutrophils % 82.9 H Seg Neuts % (Manual) Lymphocytes % (Manual) Seg Neutrophils # 12.1 H Seg Neutrophils # Man Lymphocytes # (Manual) Eosinophils % (Manual) Monocytes # (Manual) Eosinophils # (Manual) D-Dimer Heparin Anti-Xa Level 0.24 L ABG pH POC ABG pCO2 POC ABG pO2 ABG pO2 ABG HCO3 ABG O2 Saturation ABG Base Excess ABG Hemoglobin ABG Oxyhemoglobin VBG pH Oxyhemoglobin Sodium Potassium Chloride Carbon Dioxide 20 L BUN 88 H Creatinine 1.5 H Glucose 111 H POC Glucose Lactic Acid Calcium 8.2 L Ferritin AST Alkaline Phosphatase Lactate Dehydrogenase Total Creatine Kinase CK-MB (CK-2) C-Reactive Protein Total Protein Albumin Troponin T HDL Cholesterol Urine WBC (Auto) Urine Creatinine Urine Total Protein Coronavirus (PCR) Crossmatch 06/11/20 06/11/2020 06:03 10:22 11:11 WBC RBC Hgb Hct MCHC RDW Lymph % (Auto) [place] % (Auto) Eos % (Auto) Lymph # [place] # Seg Neutrophils % Seg Neuts % (Manual) Lymphocytes % (Manual) Seg Neutrophils # Seg Neutrophils # Man Lymphocytes # (Manual) Eosinophils % (Manual) Monocytes # (Manual) Eosinophils # (Manual) D-Dimer Heparin Anti-Xa Level 0.26 L ABG pH POC ABG pCO2 POC ABG pO2 ABG pO2 ABG HCO3 ABG O2 Saturation ABG Base Excess ABG Hemoglobin 9.6 L ABG Oxyhemoglobin VBG pH Oxyhemoglobin Sodium Potassium Chloride Carbon Dioxide BUN Creatinine Glucose POC Glucose 114 H Lactic Acid Calcium Ferritin AST Alkaline Phosphatase Lactate Dehydrogenase Total Creatine Kinase CK-MB (CK-2) C-Reactive Protein Total Protein Albumin Troponin T HDL Cholesterol Urine WBC (Auto) Urine Creatinine Urine Total Protein Coronavirus (PCR) Crossmatch 06/11/20 06/11/20 06/12/20 12:24 17:24 00:21 WBC RBC Hgb Hct MCHC RDW Lymph % (Auto) [place] % (Auto) Eos % (Auto) Lymph # [place] # Seg Neutrophils % Seg Neuts % (Manual) Lymphocytes % (Manual) Seg Neutrophils # Seg Neutrophils # Man Lymphocytes # (Manual) Eosinophils % (Manual) Monocytes # (Manual) Eosinophils # (Manual) D-Dimer Heparin Anti-Xa Level ABG pH POC ABG pCO2 POC ABG pO2 ABG pO2 ABG HCO3 ABG O2 Saturation ABG Base Excess ABG Hemoglobin ABG Oxyhemoglobin VBG pH Oxyhemoglobin Sodium Potassium Chloride Carbon Dioxide BUN Creatinine Glucose POC Glucose 119 H 126 H 117 H Lactic Acid Calcium Ferritin AST Alkaline Phosphatase Lactate Dehydrogenase Total Creatine Kinase CK-MB (CK-2) C-Reactive Protein Total Protein Albumin Troponin T HDL Cholesterol Urine WBC (Auto) Urine Creatinine Urine Total Protein Coronavirus (PCR) Crossmatch 06/12/20 06/12/20 06/12/20 02:46 02:46 05:46 WBC 13.2 H RBC 2.83 L Hgb 8.3 L Hct 24.3 L MCHC RDW 16.6 H Lymph % (Auto) 6.2 L [place] % (Auto) 9.5 H Eos % (Auto) Lymph # 0.8 L [place] # 1.3 H Seg Neutrophils % 81.9 H Seg Neuts % (Manual) Lymphocytes % (Manual) Seg Neutrophils # 10.9 H Seg Neutrophils # Man Lymphocytes # (Manual) Eosinophils % (Manual) Monocytes # (Manual) Eosinophils # (Manual) D-Dimer Heparin Anti-Xa Level ABG pH POC ABG pCO2 POC ABG pO2 ABG pO2 ABG HCO3 ABG O2 Saturation ABG Base Excess ABG Hemoglobin ABG Oxyhemoglobin VBG pH Oxyhemoglobin Sodium Potassium 3.5 L Chloride Carbon Dioxide BUN 77 H Creatinine 1.3 H Glucose POC Glucose 132 H Lactic Acid Calcium 8.3 L Ferritin AST Alkaline Phosphatase Lactate Dehydrogenase Total Creatine Kinase CK-MB (CK-2) C-Reactive Protein Total Protein Albumin Troponin T HDL Cholesterol Urine WBC (Auto) Urine Creatinine Urine Total Protein Coronavirus (PCR) Crossmatch 06/12/20 06/12/20 06/12/20 09:20 12:16 17:48 WBC RBC Hgb Hct MCHC RDW Lymph % (Auto) [place] % (Auto) Eos % (Auto) Lymph # [place] # Seg Neutrophils % Seg Neuts % (Manual) Lymphocytes % (Manual) Seg Neutrophils # Seg Neutrophils # Man Lymphocytes # (Manual) Eosinophils % (Manual) Monocytes # (Manual) Eosinophils # (Manual) D-Dimer Heparin Anti-Xa Level ABG pH POC ABG pCO2 POC ABG pO2 ABG pO2 91.1 H ABG HCO3 ABG O2 Saturation ABG Base Excess ABG Hemoglobin ABG Oxyhemoglobin VBG pH Oxyhemoglobin 94.8 L Sodium Potassium Chloride Carbon Dioxide BUN Creatinine Glucose POC Glucose 167 H 182 H Lactic Acid Calcium Ferritin AST Alkaline Phosphatase Lactate Dehydrogenase Total Creatine Kinase CK-MB (CK-2) C-Reactive Protein Total Protein Albumin Troponin T HDL Cholesterol Urine WBC (Auto) Urine Creatinine Urine Total Protein Coronavirus (PCR) Crossmatch 06/13/20 06/13/20 06/13/20 00:08 05:37 09:09 WBC RBC Hgb Hct MCHC RDW Lymph % (Auto) [place] % (Auto) Eos % (Auto) Lymph # [place] # Seg Neutrophils % Seg Neuts % (Manual) Lymphocytes % (Manual) Seg Neutrophils # Seg Neutrophils # Man Lymphocytes # (Manual) Eosinophils % (Manual) Monocytes # (Manual) Eosinophils # (Manual) D-Dimer Heparin Anti-Xa Level 0.86 H ABG pH POC ABG pCO2 POC ABG pO2 ABG pO2 ABG HCO3 ABG O2 Saturation ABG Base Excess ABG Hemoglobin ABG Oxyhemoglobin VBG pH Oxyhemoglobin Sodium Potassium Chloride Carbon Dioxide BUN Creatinine Glucose POC Glucose 142 H 119 H Lactic Acid Calcium Ferritin AST Alkaline Phosphatase Lactate Dehydrogenase Total Creatine Kinase CK-MB (CK-2) C-Reactive Protein Total Protein Albumin Troponin T HDL Cholesterol Urine WBC (Auto) Urine Creatinine Urine Total Protein Coronavirus (PCR) Crossmatch 06/13/20 06/13/20 06/13/20 12:28 17:55 21:17 WBC RBC Hgb Hct MCHC RDW Lymph % (Auto) [place] % (Auto) Eos % (Auto) Lymph # [place] # Seg Neutrophils % Seg Neuts % (Manual) Lymphocytes % (Manual) Seg Neutrophils # Seg Neutrophils # Man Lymphocytes # (Manual) Eosinophils % (Manual) Monocytes # (Manual) Eosinophils # (Manual) D-Dimer Heparin Anti-Xa Level ABG pH POC ABG pCO2 POC ABG pO2 ABG pO2 ABG HCO3 ABG O2 Saturation ABG Base Excess ABG Hemoglobin ABG Oxyhemoglobin VBG pH Oxyhemoglobin Sodium Potassium Chloride Carbon Dioxide BUN 61 H Creatinine Glucose 131 H POC Glucose 165 H 174 H Lactic Acid Calcium Ferritin AST Alkaline Phosphatase Lactate Dehydrogenase Total Creatine Kinase CK-MB (CK-2) C-Reactive Protein Total Protein Albumin Troponin T HDL Cholesterol Urine WBC (Auto) Urine Creatinine Urine Total Protein Coronavirus (PCR) Crossmatch 06/13/20 06/13/20 06/14/20 21:17 23:50 05:34 WBC RBC Hgb Hct MCHC RDW Lymph % (Auto) [place] % (Auto) Eos % (Auto) Lymph # [place] # Seg Neutrophils % Seg Neuts % (Manual) Lymphocytes % (Manual) Seg Neutrophils # Seg Neutrophils # Man Lymphocytes # (Manual) Eosinophils % (Manual) Monocytes # (Manual) Eosinophils # (Manual) D-Dimer Heparin Anti-Xa Level 0.72 H ABG pH POC ABG pCO2 POC ABG pO2 ABG pO2 ABG HCO3 ABG O2 Saturation ABG Base Excess ABG Hemoglobin ABG Oxyhemoglobin VBG pH Oxyhemoglobin Sodium 146 H Potassium Chloride 107.6 H Carbon Dioxide BUN 61 H Creatinine 1.3 H Glucose 135 H POC Glucose 146 H Lactic Acid Calcium Ferritin AST Alkaline Phosphatase Lactate Dehydrogenase Total Creatine Kinase CK-MB (CK-2) C-Reactive Protein Total Protein Albumin Troponin T HDL Cholesterol Urine WBC (Auto) Urine Creatinine Urine Total Protein Coronavirus (PCR) Crossmatch 06/14/20 06/14/20 06/14/20 06:11 09:28 11:30 WBC RBC Hgb Hct MCHC RDW Lymph % (Auto) [place] % (Auto) Eos % (Auto) Lymph # [place] # Seg Neutrophils % Seg Neuts % (Manual) Lymphocytes % (Manual) Seg Neutrophils # Seg Neutrophils # Man Lymphocytes # (Manual) Eosinophils % (Manual) Monocytes # (Manual) Eosinophils # (Manual) D-Dimer Heparin Anti-Xa Level 0.90 H ABG pH POC ABG pCO2 POC ABG pO2 ABG pO2 ABG HCO3 ABG O2 Saturation ABG Base Excess ABG Hemoglobin ABG Oxyhemoglobin VBG pH Oxyhemoglobin Sodium Potassium Chloride Carbon Dioxide BUN Creatinine Glucose POC Glucose 141 H 186 H Lactic Acid Calcium Ferritin AST Alkaline Phosphatase Lactate Dehydrogenase Total Creatine Kinase CK-MB (CK-2) C-Reactive Protein Total Protein Albumin Troponin T HDL Cholesterol Urine WBC (Auto) Urine Creatinine Urine Total Protein Coronavirus (PCR) Crossmatch 06/14/20 06/14/20 06/14/20 16:07 18:16 23:51 WBC RBC Hgb Hct MCHC RDW Lymph % (Auto) [place] % (Auto) Eos % (Auto) Lymph # [place] # Seg Neutrophils % Seg Neuts % (Manual) Lymphocytes % (Manual) Seg Neutrophils # Seg Neutrophils # Man Lymphocytes # (Manual) Eosinophils % (Manual) Monocytes # (Manual) Eosinophils # (Manual) D-Dimer Heparin Anti-Xa Level 0.82 H ABG pH POC ABG pCO2 POC ABG pO2 ABG pO2 ABG HCO3 ABG O2 Saturation ABG Base Excess ABG Hemoglobin ABG Oxyhemoglobin VBG pH Oxyhemoglobin Sodium Potassium Chloride Carbon Dioxide BUN Creatinine Glucose POC Glucose 106 H 154 H Lactic Acid Calcium Ferritin AST Alkaline Phosphatase Lactate Dehydrogenase Total Creatine Kinase CK-MB (CK-2) C-Reactive Protein Total Protein Albumin Troponin T HDL Cholesterol Urine WBC (Auto) Urine Creatinine Urine Total Protein Coronavirus (PCR) Crossmatch 06/15/20 06/15/20 06/15/20 04:24 04:24 05:59 WBC RBC 2.75 L Hgb 7.9 L Hct 24.0 L MCHC RDW 16.4 H Lymph % (Auto) 12.9 L [place] % (Auto) 8.7 H Eos % (Auto) 4.6 H Lymph # 1.1 L [place] # Seg Neutrophils % 73.2 H Seg Neuts % (Manual) Lymphocytes % (Manual) Seg Neutrophils # Seg Neutrophils # Man Lymphocytes # (Manual) Eosinophils % (Manual) Monocytes # (Manual) Eosinophils # (Manual) D-Dimer Heparin Anti-Xa Level ABG pH POC ABG pCO2 POC ABG pO2 ABG pO2 ABG HCO3 ABG O2 Saturation ABG Base Excess ABG Hemoglobin ABG Oxyhemoglobin VBG pH Oxyhemoglobin Sodium Potassium 3.4 L Chloride Carbon Dioxide BUN 55 H Creatinine 1.3 H Glucose 142 H POC Glucose 131 H Lactic Acid Calcium Ferritin AST Alkaline Phosphatase Lactate Dehydrogenase Total Creatine Kinase CK-MB (CK-2) C-Reactive Protein Total Protein Albumin Troponin T HDL Cholesterol Urine WBC (Auto) Urine Creatinine Urine Total Protein Coronavirus (PCR) Crossmatch 06/15/20 06/15/20 06/16/20 12:33 17:07 00:22 WBC RBC Hgb Hct MCHC RDW Lymph % (Auto) [place] % (Auto) Eos % (Auto) Lymph # [place] # Seg Neutrophils % Seg Neuts % (Manual) Lymphocytes % (Manual) Seg Neutrophils # Seg Neutrophils # Man Lymphocytes # (Manual) Eosinophils % (Manual) Monocytes # (Manual) Eosinophils # (Manual) D-Dimer Heparin Anti-Xa Level 0.21 L ABG pH POC ABG pCO2 POC ABG pO2 ABG pO2 ABG HCO3 ABG O2 Saturation ABG Base Excess ABG Hemoglobin ABG Oxyhemoglobin VBG pH Oxyhemoglobin Sodium Potassium Chloride Carbon Dioxide BUN Creatinine Glucose POC Glucose 180 H 185 H Lactic Acid Calcium Ferritin AST Alkaline Phosphatase Lactate Dehydrogenase Total Creatine Kinase CK-MB (CK-2) C-Reactive Protein Total Protein Albumin Troponin T HDL Cholesterol Urine WBC (Auto) Urine Creatinine Urine Total Protein Coronavirus (PCR) Crossmatch 06/16/20 06/16/20 06/16/20 01:45 08:06 09:15 WBC RBC Hgb Hct MCHC RDW Lymph % (Auto) [place] % (Auto) Eos % (Auto) Lymph # [place] # Seg Neutrophils % Seg Neuts % (Manual) Lymphocytes % (Manual) Seg Neutrophils # Seg Neutrophils # Man Lymphocytes # (Manual) Eosinophils % (Manual) Monocytes # (Manual) Eosinophils # (Manual) D-Dimer Heparin Anti-Xa Level ABG pH POC ABG pCO2 POC ABG pO2 ABG pO2 ABG HCO3 ABG O2 Saturation ABG Base Excess ABG Hemoglobin ABG Oxyhemoglobin VBG pH Oxyhemoglobin Sodium Potassium Chloride Carbon Dioxide BUN 49 H Creatinine Glucose 154 H POC Glucose 140 H 171 H Lactic Acid Calcium Ferritin AST Alkaline Phosphatase Lactate Dehydrogenase Total Creatine Kinase CK-MB (CK-2) C-Reactive Protein Total Protein Albumin Troponin T HDL Cholesterol Urine WBC (Auto) Urine Creatinine Urine Total Protein Coronavirus (PCR) Crossmatch 06/16/20 06/16/20 06/16/20 10:46 12:33 17:54 WBC RBC Hgb Hct MCHC RDW Lymph % (Auto) [place] % (Auto) Eos % (Auto) Lymph # [place] # Seg Neutrophils % Seg Neuts % (Manual) Lymphocytes % (Manual) Seg Neutrophils # Seg Neutrophils # Man Lymphocytes # (Manual) Eosinophils % (Manual) Monocytes # (Manual) Eosinophils # (Manual) D-Dimer Heparin Anti-Xa Level 0.12 L ABG pH POC ABG pCO2 POC ABG pO2 ABG pO2 ABG HCO3 ABG O2 Saturation ABG Base Excess ABG Hemoglobin ABG Oxyhemoglobin VBG pH Oxyhemoglobin Sodium Potassium Chloride Carbon Dioxide BUN Creatinine Glucose POC Glucose 166 H 151 H Lactic Acid Calcium Ferritin AST Alkaline Phosphatase Lactate Dehydrogenase Total Creatine Kinase CK-MB (CK-2) C-Reactive Protein Total Protein Albumin Troponin T HDL Cholesterol Urine WBC (Auto) Urine Creatinine Urine Total Protein Coronavirus (PCR) Crossmatch 06/16/20 06/17/20 06/17/20 18:47 00:00 02:19 WBC RBC Hgb Hct MCHC RDW Lymph % (Auto) [place] % (Auto) Eos % (Auto) Lymph # [place] # Seg Neutrophils % Seg Neuts % (Manual) Lymphocytes % (Manual) Seg Neutrophils # Seg Neutrophils # Man Lymphocytes # (Manual) Eosinophils % (Manual) Monocytes # (Manual) Eosinophils # (Manual) D-Dimer Heparin Anti-Xa Level 0.73 H 0.77 H ABG pH POC ABG pCO2 POC ABG pO2 ABG pO2 ABG HCO3 ABG O2 Saturation ABG Base Excess ABG Hemoglobin ABG Oxyhemoglobin VBG pH Oxyhemoglobin Sodium Potassium Chloride Carbon Dioxide BUN Creatinine Glucose POC Glucose 139 H Lactic Acid Calcium Ferritin AST Alkaline Phosphatase Lactate Dehydrogenase Total Creatine Kinase CK-MB (CK-2) C-Reactive Protein Total Protein Albumin Troponin T HDL Cholesterol Urine WBC (Auto) Urine Creatinine Urine Total Protein Coronavirus (PCR) Crossmatch 06/17/20 06/17/20 06/17/20 06:07 11:42 16:43 WBC RBC Hgb Hct MCHC RDW Lymph % (Auto) [place] % (Auto) Eos % (Auto) Lymph # [place] # Seg Neutrophils % Seg Neuts % (Manual) Lymphocytes % (Manual) Seg Neutrophils # Seg Neutrophils # Man Lymphocytes # (Manual) Eosinophils % (Manual) Monocytes # (Manual) Eosinophils # (Manual) D-Dimer Heparin Anti-Xa Level 0.73 H ABG pH POC ABG pCO2 POC ABG pO2 ABG pO2 ABG HCO3 ABG O2 Saturation ABG Base Excess ABG Hemoglobin ABG Oxyhemoglobin VBG pH Oxyhemoglobin Sodium Potassium Chloride Carbon Dioxide BUN Creatinine Glucose POC Glucose 169 H 169 H Lactic Acid Calcium Ferritin AST Alkaline Phosphatase Lactate Dehydrogenase Total Creatine Kinase CK-MB (CK-2) C-Reactive Protein Total Protein Albumin Troponin T HDL Cholesterol Urine WBC (Auto) Urine Creatinine Urine Total Protein Coronavirus (PCR) Crossmatch 06/17/20 06/17/20 06/17/20 18:18 23:08 23:16 WBC RBC Hgb Hct MCHC RDW Lymph % (Auto) [place] % (Auto) Eos % (Auto) Lymph # [place] # Seg Neutrophils % Seg Neuts % (Manual) Lymphocytes % (Manual) Seg Neutrophils # Seg Neutrophils # Man Lymphocytes # (Manual) Eosinophils % (Manual) Monocytes # (Manual) Eosinophils # (Manual) D-Dimer Heparin Anti-Xa Level 0.71 H ABG pH POC ABG pCO2 POC ABG pO2 ABG pO2 ABG HCO3 ABG O2 Saturation ABG Base Excess ABG Hemoglobin ABG Oxyhemoglobin VBG pH Oxyhemoglobin Sodium Potassium Chloride Carbon Dioxide BUN Creatinine Glucose POC Glucose 159 H 134 H Lactic Acid Calcium Ferritin AST Alkaline Phosphatase Lactate Dehydrogenase Total Creatine Kinase CK-MB (CK-2) C-Reactive Protein Total Protein Albumin Troponin T HDL Cholesterol Urine WBC (Auto) Urine Creatinine Urine Total Protein Coronavirus (PCR) Crossmatch 06/18/20 06/18/20 06/18/20 04:42 05:52 11:50 WBC RBC Hgb Hct MCHC RDW Lymph % (Auto) [place] % (Auto) Eos % (Auto) Lymph # [place] # Seg Neutrophils % Seg Neuts % (Manual) Lymphocytes % (Manual) Seg Neutrophils # Seg Neutrophils # Man Lymphocytes # (Manual) Eosinophils % (Manual) Monocytes # (Manual) Eosinophils # (Manual) D-Dimer Heparin Anti-Xa Level ABG pH POC ABG pCO2 POC ABG pO2 ABG pO2 ABG HCO3 ABG O2 Saturation ABG Base Excess ABG Hemoglobin ABG Oxyhemoglobin VBG pH Oxyhemoglobin Sodium Potassium Chloride Carbon Dioxide BUN 44 H Creatinine Glucose 115 H POC Glucose 171 H 167 H Lactic Acid Calcium Ferritin AST Alkaline Phosphatase Lactate Dehydrogenase Total Creatine Kinase CK-MB (CK-2) C-Reactive Protein Total Protein Albumin Troponin T HDL Cholesterol Urine WBC (Auto) Urine Creatinine Urine Total Protein Coronavirus (PCR) Crossmatch 06/18/20 06/19/20 06/19/20 23:46 05:48 07:52 WBC RBC Hgb Hct MCHC RDW Lymph % (Auto) [place] % (Auto) Eos % (Auto) Lymph # [place] # Seg Neutrophils % Seg Neuts % (Manual) Lymphocytes % (Manual) Seg Neutrophils # Seg Neutrophils # Man Lymphocytes # (Manual) Eosinophils % (Manual) Monocytes # (Manual) Eosinophils # (Manual) D-Dimer Heparin Anti-Xa Level ABG pH POC ABG pCO2 POC ABG pO2 ABG pO2 ABG HCO3 ABG O2 Saturation ABG Base Excess ABG Hemoglobin ABG Oxyhemoglobin VBG pH Oxyhemoglobin Sodium Potassium Chloride Carbon Dioxide BUN Creatinine Glucose POC Glucose 130 H 207 H 175 H Lactic Acid Calcium Ferritin AST Alkaline Phosphatase Lactate Dehydrogenase Total Creatine Kinase CK-MB (CK-2) C-Reactive Protein Total Protein Albumin Troponin T HDL Cholesterol Urine WBC (Auto) Urine Creatinine Urine Total Protein Coronavirus (PCR) Crossmatch 06/19/20 06/19/20 06/20/20 11:42 22:54 05:17 WBC RBC Hgb Hct MCHC RDW Lymph % (Auto) [place] % (Auto) Eos % (Auto) Lymph # [place] # Seg Neutrophils % Seg Neuts % (Manual) Lymphocytes % (Manual) Seg Neutrophils # Seg Neutrophils # Man Lymphocytes # (Manual) Eosinophils % (Manual) Monocytes # (Manual) Eosinophils # (Manual) D-Dimer Heparin Anti-Xa Level ABG pH POC ABG pCO2 POC ABG pO2 ABG pO2 ABG HCO3 ABG O2 Saturation ABG Base Excess ABG Hemoglobin ABG Oxyhemoglobin VBG pH Oxyhemoglobin Sodium Potassium Chloride Carbon Dioxide BUN Creatinine Glucose POC Glucose 166 H 135 H 218 H Lactic Acid Calcium Ferritin AST Alkaline Phosphatase Lactate Dehydrogenase Total Creatine Kinase CK-MB (CK-2) C-Reactive Protein Total Protein Albumin Troponin T HDL Cholesterol Urine WBC (Auto) Urine Creatinine Urine Total Protein Coronavirus (PCR) Crossmatch 06/20/20 06/20/20 06/20/20 12:04 16:25 16:35 WBC RBC Hgb Hct MCHC RDW Lymph % (Auto) [place] % (Auto) Eos % (Auto) Lymph # [place] # Seg Neutrophils % Seg Neuts % (Manual) Lymphocytes % (Manual) Seg Neutrophils # Seg Neutrophils # Man Lymphocytes # (Manual) Eosinophils % (Manual) Monocytes # (Manual) Eosinophils # (Manual) D-Dimer Heparin Anti-Xa Level ABG pH POC ABG pCO2 POC ABG pO2 ABG pO2 59.6 L ABG HCO3 28.7 H ABG O2 Saturation 93.5 L ABG Base Excess 3.4 H ABG Hemoglobin 7.2 L ABG Oxyhemoglobin VBG pH Oxyhemoglobin 91.3 L Sodium Potassium Chloride Carbon Dioxide BUN Creatinine Glucose POC Glucose 194 H 137 H Lactic Acid Calcium Ferritin AST Alkaline Phosphatase Lactate Dehydrogenase Total Creatine Kinase CK-MB (CK-2) C-Reactive Protein Total Protein Albumin Troponin T HDL Cholesterol Urine WBC (Auto) Urine Creatinine Urine Total Protein Coronavirus (PCR) Crossmatch 06/20/20 06/21/20 06/21/20 23:59 06:25 12:01 WBC RBC Hgb Hct MCHC RDW Lymph % (Auto) [place] % (Auto) Eos % (Auto) Lymph # [place] # Seg Neutrophils % Seg Neuts % (Manual) Lymphocytes % (Manual) Seg Neutrophils # Seg Neutrophils # Man Lymphocytes # (Manual) Eosinophils % (Manual) Monocytes # (Manual) Eosinophils # (Manual) D-Dimer Heparin Anti-Xa Level ABG pH POC ABG pCO2 POC ABG pO2 ABG pO2 ABG HCO3 ABG O2 Saturation ABG Base Excess ABG Hemoglobin ABG Oxyhemoglobin VBG pH Oxyhemoglobin Sodium Potassium Chloride Carbon Dioxide BUN Creatinine Glucose POC Glucose 156 H 177 H 195 H Lactic Acid Calcium Ferritin AST Alkaline Phosphatase Lactate Dehydrogenase Total Creatine Kinase CK-MB (CK-2) C-Reactive Protein Total Protein Albumin Troponin T HDL Cholesterol Urine WBC (Auto) Urine Creatinine Urine Total Protein Coronavirus (PCR) Crossmatch 06/21/20 06/21/20 06/22/20 17:04 21:51 05:06 WBC RBC Hgb Hct MCHC RDW Lymph % (Auto) [place] % (Auto) Eos % (Auto) Lymph # [place] # Seg Neutrophils % Seg Neuts % (Manual) Lymphocytes % (Manual) Seg Neutrophils # Seg Neutrophils # Man Lymphocytes # (Manual) Eosinophils % (Manual) Monocytes # (Manual) Eosinophils # (Manual) D-Dimer Heparin Anti-Xa Level ABG pH POC ABG pCO2 POC ABG pO2 ABG pO2 ABG HCO3 ABG O2 Saturation ABG Base Excess ABG Hemoglobin ABG Oxyhemoglobin VBG pH Oxyhemoglobin Sodium Potassium Chloride Carbon Dioxide BUN Creatinine Glucose POC Glucose 156 H 154 H 167 H Lactic Acid Calcium Ferritin AST Alkaline Phosphatase Lactate Dehydrogenase Total Creatine Kinase CK-MB (CK-2) C-Reactive Protein Total Protein Albumin Troponin T HDL Cholesterol Urine WBC (Auto) Urine Creatinine Urine Total Protein Coronavirus (PCR) Crossmatch 06/22/20 06/22/20 06/22/20 11:20 15:27 16:58 WBC RBC Hgb Hct MCHC RDW Lymph % (Auto) [place] % (Auto) Eos % (Auto) Lymph # [place] # Seg Neutrophils % Seg Neuts % (Manual) Lymphocytes % (Manual) Seg Neutrophils # Seg Neutrophils # Man Lymphocytes # (Manual) Eosinophils % (Manual) Monocytes # (Manual) Eosinophils # (Manual) D-Dimer Heparin Anti-Xa Level ABG pH 7.206 L POC ABG pCO2 79.9 H POC ABG pO2 ABG pO2 ABG HCO3 ABG O2 Saturation ABG Base Excess ABG Hemoglobin 8.3 L ABG Oxyhemoglobin VBG pH Oxyhemoglobin Sodium Potassium Chloride Carbon Dioxide BUN Creatinine Glucose POC Glucose 181 H 230 H Lactic Acid Calcium Ferritin AST Alkaline Phosphatase Lactate Dehydrogenase Total Creatine Kinase CK-MB (CK-2) C-Reactive Protein Total Protein Albumin Troponin T HDL Cholesterol Urine WBC (Auto) Urine Creatinine Urine Total Protein Coronavirus (PCR) Crossmatch 06/22/20 06/23/20 06/23/20 22:26 05:49 05:49 WBC RBC 2.58 L Hgb 7.4 L Hct 23.2 L MCHC RDW 17.0 H Lymph % (Auto) [place] % (Auto) 11.2 H Eos % (Auto) Lymph # 1.0 L [place] # Seg Neutrophils % Seg Neuts % (Manual) Lymphocytes % (Manual) Seg Neutrophils # Seg Neutrophils # Man Lymphocytes # (Manual) Eosinophils % (Manual) Monocytes # (Manual) Eosinophils # (Manual) D-Dimer Heparin Anti-Xa Level ABG pH POC ABG pCO2 POC ABG pO2 ABG pO2 ABG HCO3 ABG O2 Saturation ABG Base Excess ABG Hemoglobin ABG Oxyhemoglobin VBG pH Oxyhemoglobin Sodium Potassium Chloride Carbon Dioxide BUN 68 H Creatinine 2.4 H Glucose 198 H POC Glucose 195 H Lactic Acid Calcium Ferritin AST Alkaline Phosphatase Lactate Dehydrogenase Total Creatine Kinase CK-MB (CK-2) C-Reactive Protein Total Protein Albumin Troponin T HDL Cholesterol Urine WBC (Auto) Urine Creatinine Urine Total Protein Coronavirus (PCR) Crossmatch 06/23/20 06/23/20 06/23/20 05:50 12:29 12:34 WBC RBC Hgb Hct MCHC RDW Lymph % (Auto) [place] % (Auto) Eos % (Auto) Lymph # [place] # Seg Neutrophils % Seg Neuts % (Manual) Lymphocytes % (Manual) Seg Neutrophils # Seg Neutrophils # Man Lymphocytes # (Manual) Eosinophils % (Manual) Monocytes # (Manual) Eosinophils # (Manual) D-Dimer Heparin Anti-Xa Level ABG pH POC ABG pCO2 54.7 H POC ABG pO2 68.8 L ABG pO2 ABG HCO3 ABG O2 Saturation ABG Base Excess ABG Hemoglobin 9.8 L ABG Oxyhemoglobin 92.6 L VBG pH Oxyhemoglobin Sodium Potassium Chloride Carbon Dioxide BUN Creatinine Glucose POC Glucose 202 H 218 H Lactic Acid Calcium Ferritin AST Alkaline Phosphatase Lactate Dehydrogenase Total Creatine Kinase CK-MB (CK-2) C-Reactive Protein Total Protein Albumin Troponin T HDL Cholesterol Urine WBC (Auto) Urine Creatinine Urine Total Protein Coronavirus (PCR) Crossmatch 06/23/20 06/23/20 06/24/20 16:02 22:22 01:06 WBC RBC Hgb Hct MCHC RDW Lymph % (Auto) [place] % (Auto) Eos % (Auto) Lymph # [place] # Seg Neutrophils % Seg Neuts % (Manual) Lymphocytes % (Manual) Seg Neutrophils # Seg Neutrophils # Man Lymphocytes # (Manual) Eosinophils % (Manual) Monocytes # (Manual) Eosinophils # (Manual) D-Dimer Heparin Anti-Xa Level ABG pH POC ABG pCO2 POC ABG pO2 ABG pO2 ABG HCO3 ABG O2 Saturation ABG Base Excess ABG Hemoglobin ABG Oxyhemoglobin VBG pH Oxyhemoglobin Sodium Potassium Chloride Carbon Dioxide BUN Creatinine Glucose POC Glucose 190 H 166 H 171 H Lactic Acid Calcium Ferritin AST Alkaline Phosphatase Lactate Dehydrogenase Total Creatine Kinase CK-MB (CK-2) C-Reactive Protein Total Protein Albumin Troponin T HDL Cholesterol Urine WBC (Auto) Urine Creatinine Urine Total Protein Coronavirus (PCR) Crossmatch 06/24/20 06/24/20 06/24/20 04:48 05:35 11:48 WBC RBC Hgb Hct MCHC RDW Lymph % (Auto) [place] % (Auto) Eos % (Auto) Lymph # [place] # Seg Neutrophils % Seg Neuts % (Manual) Lymphocytes % (Manual) Seg Neutrophils # Seg Neutrophils # Man Lymphocytes # (Manual) Eosinophils % (Manual) Monocytes # (Manual) Eosinophils # (Manual) D-Dimer Heparin Anti-Xa Level ABG pH POC ABG pCO2 POC ABG pO2 ABG pO2 ABG HCO3 ABG O2 Saturation ABG Base Excess ABG Hemoglobin ABG Oxyhemoglobin VBG pH Oxyhemoglobin Sodium Potassium Chloride Carbon Dioxide BUN 75 H Creatinine 2.6 H Glucose 179 H POC Glucose 172 H 153 H Lactic Acid Calcium Ferritin AST Alkaline Phosphatase Lactate Dehydrogenase Total Creatine Kinase CK-MB (CK-2) C-Reactive Protein Total Protein Albumin Troponin T HDL Cholesterol Urine WBC (Auto) Urine Creatinine Urine Total Protein Coronavirus (PCR) Crossmatch 06/24/20 06/24/20 06/25/20 16:38 21:52 12:00 WBC RBC Hgb Hct MCHC RDW Lymph % (Auto) [place] % (Auto) Eos % (Auto) Lymph # [place] # Seg Neutrophils % Seg Neuts % (Manual) Lymphocytes % (Manual) Seg Neutrophils # Seg Neutrophils # Man Lymphocytes # (Manual) Eosinophils % (Manual) Monocytes # (Manual) Eosinophils # (Manual) D-Dimer Heparin Anti-Xa Level ABG pH POC ABG pCO2 POC ABG pO2 ABG pO2 ABG HCO3 ABG O2 Saturation ABG Base Excess ABG Hemoglobin ABG Oxyhemoglobin VBG pH Oxyhemoglobin Sodium Potassium Chloride Carbon Dioxide BUN Creatinine Glucose POC Glucose 123 H 115 H 203 H Lactic Acid Calcium Ferritin AST Alkaline Phosphatase Lactate Dehydrogenase Total Creatine Kinase CK-MB (CK-2) C-Reactive Protein Total Protein Albumin Troponin T HDL Cholesterol Urine WBC (Auto) Urine Creatinine Urine Total Protein Coronavirus (PCR) Crossmatch 06/25/20 06/25/20 06/25/20 15:43 16:37 23:02 WBC RBC Hgb Hct MCHC RDW Lymph % (Auto) [place] % (Auto) Eos % (Auto) Lymph # [place] # Seg Neutrophils % Seg Neuts % (Manual) Lymphocytes % (Manual) Seg Neutrophils # Seg Neutrophils # Man Lymphocytes # (Manual) Eosinophils % (Manual) Monocytes # (Manual) Eosinophils # (Manual) D-Dimer Heparin Anti-Xa Level ABG pH POC ABG pCO2 POC ABG pO2 ABG pO2 ABG HCO3 ABG O2 Saturation ABG Base Excess ABG Hemoglobin ABG Oxyhemoglobin VBG pH Oxyhemoglobin Sodium Potassium Chloride Carbon Dioxide BUN 71 H Creatinine 1.8 H Glucose 170 H POC Glucose 191 H 126 H Lactic Acid Calcium 8.2 L Ferritin AST Alkaline Phosphatase Lactate Dehydrogenase Total Creatine Kinase CK-MB (CK-2) C-Reactive Protein Total Protein Albumin Troponin T HDL Cholesterol Urine WBC (Auto) Urine Creatinine Urine Total Protein Coronavirus (PCR) Crossmatch 06/26/20 06/26/20 06/26/20 06:34 06:34 09:27 WBC RBC 2.41 L Hgb 6.9 L Hct 21.5 L MCHC RDW 16.7 H Lymph % (Auto) 10.9 L [place] % (Auto) 9.6 H Eos % (Auto) Lymph # 0.7 L [place] # Seg Neutrophils % 75.4 H Seg Neuts % (Manual) Lymphocytes % (Manual) Seg Neutrophils # Seg Neutrophils # Man Lymphocytes # (Manual) Eosinophils % (Manual) Monocytes # (Manual) Eosinophils # (Manual) D-Dimer Heparin Anti-Xa Level ABG pH POC ABG pCO2 POC ABG pO2 ABG pO2 ABG HCO3 ABG O2 Saturation ABG Base Excess ABG Hemoglobin ABG Oxyhemoglobin VBG pH Oxyhemoglobin Sodium Potassium Chloride Carbon Dioxide BUN 77 H Creatinine 1.9 H Glucose 190 H POC Glucose Lactic Acid Calcium Ferritin AST Alkaline Phosphatase Lactate Dehydrogenase Total Creatine Kinase CK-MB (CK-2) C-Reactive Protein Total Protein Albumin Troponin T HDL Cholesterol Urine WBC (Auto) Urine Creatinine Urine Total Protein Coronavirus (PCR) Crossmatch See Detail 06/26/20 06/26/20 06/26/20 12:15 16:28 17:28 WBC RBC Hgb Hct MCHC RDW Lymph % (Auto) [place] % (Auto) Eos % (Auto) Lymph # [place] # Seg Neutrophils % Seg Neuts % (Manual) Lymphocytes % (Manual) Seg Neutrophils # Seg Neutrophils # Man Lymphocytes # (Manual) Eosinophils % (Manual) Monocytes # (Manual) Eosinophils # (Manual) D-Dimer Heparin Anti-Xa Level ABG pH POC ABG pCO2 POC ABG pO2 ABG pO2 ABG HCO3 ABG O2 Saturation ABG Base Excess ABG Hemoglobin ABG Oxyhemoglobin VBG pH Oxyhemoglobin Sodium Potassium Chloride Carbon Dioxide BUN Creatinine Glucose POC Glucose 187 H 149 H 189 H Lactic Acid Calcium Ferritin AST Alkaline Phosphatase Lactate Dehydrogenase Total Creatine Kinase CK-MB (CK-2) C-Reactive Protein Total Protein Albumin Troponin T HDL Cholesterol Urine WBC (Auto) Urine Creatinine Urine Total Protein Coronavirus (PCR) Crossmatch 06/26/20 06/26/20 06/26/20 18:30 18:30 18:30 WBC RBC 2.87 L Hgb 8.2 L Hct 25.9 L MCHC RDW 17.8 H Lymph % (Auto) [place] % (Auto) Eos % (Auto) Lymph # [place] # Seg Neutrophils % Seg Neuts % (Manual) 83.0 H Lymphocytes % (Manual) 8.0 L Seg Neutrophils # Seg Neutrophils # Man Lymphocytes # (Manual) 0.6 L Eosinophils % (Manual) Monocytes # (Manual) Eosinophils # (Manual) D-Dimer Heparin Anti-Xa Level ABG pH POC ABG pCO2 POC ABG pO2 ABG pO2 ABG HCO3 ABG O2 Saturation ABG Base Excess ABG Hemoglobin ABG Oxyhemoglobin VBG pH Oxyhemoglobin Sodium Potassium Chloride Carbon Dioxide BUN 80 H Creatinine 2.1 H Glucose 260 H POC Glucose Lactic Acid 4.30 H* Calcium 8.3 L Ferritin AST Alkaline Phosphatase Lactate Dehydrogenase Total Creatine Kinase CK-MB (CK-2) C-Reactive Protein Total Protein Albumin Troponin T HDL Cholesterol Urine WBC (Auto) Urine Creatinine Urine Total Protein Coronavirus (PCR) Crossmatch 06/26/20 06/27/20 06/27/20 18:50 01:00 04:29 WBC RBC Hgb Hct MCHC RDW Lymph % (Auto) [place] % (Auto) Eos % (Auto) Lymph # [place] # Seg Neutrophils % Seg Neuts % (Manual) Lymphocytes % (Manual) Seg Neutrophils # Seg Neutrophils # Man Lymphocytes # (Manual) Eosinophils % (Manual) Monocytes # (Manual) Eosinophils # (Manual) D-Dimer Heparin Anti-Xa Level ABG pH 7.296 L POC ABG pCO2 POC ABG pO2 ABG pO2 116.5 H 200.5 H ABG HCO3 28.4 H ABG O2 Saturation 99.3 H ABG Base Excess 3.7 H ABG Hemoglobin 5.6 L ABG Oxyhemoglobin VBG pH Oxyhemoglobin Sodium Potassium Chloride Carbon Dioxide BUN Creatinine Glucose POC Glucose 123 H Lactic Acid Calcium Ferritin AST Alkaline Phosphatase Lactate Dehydrogenase Total Creatine Kinase CK-MB (CK-2) C-Reactive Protein Total Protein Albumin Troponin T HDL Cholesterol Urine WBC (Auto) Urine Creatinine Urine Total Protein Coronavirus (PCR) Crossmatch 06/27/20 06/27/20 06/27/20 05:00 05:00 05:00 WBC RBC 2.75 L Hgb 7.9 L Hct 24.3 L MCHC RDW 17.1 H Lymph % (Auto) 8.5 L [place] % (Auto) 12.6 H Eos % (Auto) Lymph # 0.7 L [place] # 1.0 H Seg Neutrophils % 77.5 H Seg Neuts % (Manual) Lymphocytes % (Manual) Seg Neutrophils # Seg Neutrophils # Man Lymphocytes # (Manual) Eosinophils % (Manual) Monocytes # (Manual) Eosinophils # (Manual) D-Dimer Heparin Anti-Xa Level ABG pH POC ABG pCO2 POC ABG pO2 ABG pO2 ABG HCO3 ABG O2 Saturation ABG Base Excess ABG Hemoglobin ABG Oxyhemoglobin VBG pH Oxyhemoglobin Sodium Potassium Chloride Carbon Dioxide BUN 80 H Creatinine 2.0 H Glucose 129 H POC Glucose Lactic Acid 0.60 L Calcium 7.9 L Ferritin AST Alkaline Phosphatase Lactate Dehydrogenase Total Creatine Kinase CK-MB (CK-2) C-Reactive Protein Total Protein Albumin Troponin T HDL Cholesterol Urine WBC (Auto) Urine Creatinine Urine Total Protein Coronavirus (PCR) Crossmatch 06/27/20 06/27/20 06/27/20 05:23 13:46 17:25 WBC RBC Hgb Hct MCHC RDW Lymph % (Auto) [place] % (Auto) Eos % (Auto) Lymph # [place] # Seg Neutrophils % Seg Neuts % (Manual) Lymphocytes % (Manual) Seg Neutrophils # Seg Neutrophils # Man Lymphocytes # (Manual) Eosinophils % (Manual) Monocytes # (Manual) Eosinophils # (Manual) D-Dimer Heparin Anti-Xa Level ABG pH POC ABG pCO2 POC ABG pO2 ABG pO2 ABG HCO3 ABG O2 Saturation ABG Base Excess ABG Hemoglobin ABG Oxyhemoglobin VBG pH Oxyhemoglobin Sodium Potassium Chloride Carbon Dioxide BUN Creatinine Glucose POC Glucose 109 H 158 H 162 H Lactic Acid Calcium Ferritin AST Alkaline Phosphatase Lactate Dehydrogenase Total Creatine Kinase CK-MB (CK-2) C-Reactive Protein Total Protein Albumin Troponin T HDL Cholesterol Urine WBC (Auto) Urine Creatinine Urine Total Protein Coronavirus (PCR) Crossmatch 06/27/20 06/27/20 06/28/20 18:43 23:46 04:05 WBC RBC Hgb 7.7 L Hct 22.1 L MCHC RDW Lymph % (Auto) [place] % (Auto) Eos % (Auto) Lymph # [place] # Seg Neutrophils % Seg Neuts % (Manual) Lymphocytes % (Manual) Seg Neutrophils # Seg Neutrophils # Man Lymphocytes # (Manual) Eosinophils % (Manual) Monocytes # (Manual) Eosinophils # (Manual) D-Dimer Heparin Anti-Xa Level ABG pH POC ABG pCO2 POC ABG pO2 ABG pO2 102.7 H ABG HCO3 28.7 H ABG O2 Saturation ABG Base Excess 3.7 H ABG Hemoglobin ABG Oxyhemoglobin VBG pH Oxyhemoglobin Sodium Potassium Chloride Carbon Dioxide BUN Creatinine Glucose POC Glucose 142 H Lactic Acid Calcium Ferritin AST Alkaline Phosphatase Lactate Dehydrogenase Total Creatine Kinase CK-MB (CK-2) C-Reactive Protein Total Protein Albumin Troponin T HDL Cholesterol Urine WBC (Auto) Urine Creatinine Urine Total Protein Coronavirus (PCR) Crossmatch 06/28/20 06/28/20 06/28/20 09:47 09:47 12:02 WBC RBC 2.53 L Hgb 7.4 L Hct 22.2 L MCHC RDW 16.8 H Lymph % (Auto) [place] % (Auto) 13.5 H Eos % (Auto) Lymph # 1.1 L [place] # 1.0 H Seg Neutrophils % Seg Neuts % (Manual) Lymphocytes % (Manual) Seg Neutrophils # Seg Neutrophils # Man Lymphocytes # (Manual) Eosinophils % (Manual) Monocytes # (Manual) Eosinophils # (Manual) D-Dimer Heparin Anti-Xa Level ABG pH POC ABG pCO2 POC ABG pO2 ABG pO2 ABG HCO3 ABG O2 Saturation ABG Base Excess ABG Hemoglobin ABG Oxyhemoglobin VBG pH Oxyhemoglobin Sodium Potassium Chloride Carbon Dioxide BUN 80 H Creatinine 1.5 H Glucose 139 H POC Glucose 169 H Lactic Acid Calcium 7.9 L Ferritin AST Alkaline Phosphatase Lactate Dehydrogenase Total Creatine Kinase CK-MB (CK-2) C-Reactive Protein Total Protein 5.0 L Albumin 2.1 L Troponin T HDL Cholesterol Urine WBC (Auto) Urine Creatinine Urine Total Protein Coronavirus (PCR) Crossmatch 06/28/20 06/28/20 06/28/20 12:30 12:30 17:24 WBC RBC 2.38 L Hgb 7.3 L Hct 20.9 L MCHC 35 H RDW 16.7 H Lymph % (Auto) [place] % (Auto) Eos % (Auto) Lymph # [place] # Seg Neutrophils % Seg Neuts % (Manual) Lymphocytes % (Manual) Seg Neutrophils # Seg Neutrophils # Man Lymphocytes # (Manual) Eosinophils % (Manual) Monocytes # (Manual) Eosinophils # (Manual) D-Dimer Heparin Anti-Xa Level ABG pH POC ABG pCO2 POC ABG pO2 ABG pO2 ABG HCO3 ABG O2 Saturation ABG Base Excess ABG Hemoglobin ABG Oxyhemoglobin VBG pH Oxyhemoglobin Sodium Potassium Chloride Carbon Dioxide BUN 74 H Creatinine 1.5 H Glucose 143 H POC Glucose 173 H Lactic Acid Calcium 7.5 L Ferritin AST Alkaline Phosphatase Lactate Dehydrogenase Total Creatine Kinase CK-MB (CK-2) C-Reactive Protein Total Protein Albumin Troponin T HDL Cholesterol Urine WBC (Auto) Urine Creatinine Urine Total Protein Coronavirus (PCR) Crossmatch 06/29/20 06/29/20 06/29/20 00:02 03:54 04:38 WBC RBC 2.55 L Hgb 7.3 L Hct 22.4 L MCHC RDW 16.4 H Lymph % (Auto) 13.3 L [place] % (Auto) 12.5 H Eos % (Auto) Lymph # 1.1 L [place] # 1.0 H Seg Neutrophils % Seg Neuts % (Manual) Lymphocytes % (Manual) Seg Neutrophils # Seg Neutrophils # Man Lymphocytes # (Manual) Eosinophils % (Manual) Monocytes # (Manual) Eosinophils # (Manual) D-Dimer Heparin Anti-Xa Level ABG pH POC ABG pCO2 POC ABG pO2 ABG pO2 ABG HCO3 26.9 H ABG O2 Saturation ABG Base Excess ABG Hemoglobin 6.9 L ABG Oxyhemoglobin VBG pH Oxyhemoglobin Sodium Potassium Chloride Carbon Dioxide BUN Creatinine Glucose POC Glucose 142 H Lactic Acid Calcium Ferritin AST Alkaline Phosphatase Lactate Dehydrogenase Total Creatine Kinase CK-MB (CK-2) C-Reactive Protein Total Protein Albumin Troponin T HDL Cholesterol Urine WBC (Auto) Urine Creatinine Urine Total Protein Coronavirus (PCR) Crossmatch 06/29/20 06/29/20 06/29/20 04:38 05:38 12:25 WBC RBC Hgb Hct MCHC RDW Lymph % (Auto) [place] % (Auto) Eos % (Auto) Lymph # [place] # Seg Neutrophils % Seg Neuts % (Manual) Lymphocytes % (Manual) Seg Neutrophils # Seg Neutrophils # Man Lymphocytes # (Manual) Eosinophils % (Manual) Monocytes # (Manual) Eosinophils # (Manual) D-Dimer Heparin Anti-Xa Level ABG pH POC ABG pCO2 POC ABG pO2 ABG pO2 ABG HCO3 ABG O2 Saturation ABG Base Excess ABG Hemoglobin ABG Oxyhemoglobin VBG pH Oxyhemoglobin Sodium Potassium Chloride 107.8 H Carbon Dioxide BUN 72 H Creatinine 1.4 H Glucose 127 H POC Glucose 122 H 138 H Lactic Acid Calcium 7.4 L Ferritin AST Alkaline Phosphatase Lactate Dehydrogenase Total Creatine Kinase CK-MB (CK-2) C-Reactive Protein Total Protein Albumin Troponin T HDL Cholesterol Urine WBC (Auto) Urine Creatinine Urine Total Protein Coronavirus (PCR) Crossmatch 06/29/20 06/29/20 06/29/20 14:45 14:45 14:45 WBC RBC Hgb Hct MCHC RDW Lymph % (Auto) [place] % (Auto) Eos % (Auto) Lymph # [place] # Seg Neutrophils % Seg Neuts % (Manual) Lymphocytes % (Manual) Seg Neutrophils # Seg Neutrophils # Man Lymphocytes # (Manual) Eosinophils % (Manual) Monocytes # (Manual) Eosinophils # (Manual) D-Dimer 2310.15 H Heparin Anti-Xa Level ABG pH POC ABG pCO2 POC ABG pO2 ABG pO2 ABG HCO3 ABG O2 Saturation ABG Base Excess ABG Hemoglobin ABG Oxyhemoglobin VBG pH Oxyhemoglobin Sodium Potassium Chloride Carbon Dioxide BUN Creatinine Glucose POC Glucose Lactic Acid Calcium Ferritin 223.6 H AST Alkaline Phosphatase Lactate Dehydrogenase 367 H Total Creatine Kinase CK-MB (CK-2) C-Reactive Protein 3.60 H Total Protein Albumin Troponin T HDL Cholesterol Urine WBC (Auto) Urine Creatinine Urine Total Protein Coronavirus (PCR) Crossmatch 06/29/20 06/29/20 06/29/20 18:27 23:35 Unknown WBC RBC Hgb Hct MCHC RDW Lymph % (Auto) [place] % (Auto) Eos % (Auto) Lymph # [place] # Seg Neutrophils % Seg Neuts % (Manual) Lymphocytes % (Manual) Seg Neutrophils # Seg Neutrophils # Man Lymphocytes # (Manual) Eosinophils % (Manual) Monocytes # (Manual) Eosinophils # (Manual) D-Dimer Heparin Anti-Xa Level ABG pH POC ABG pCO2 POC ABG pO2 ABG pO2 ABG HCO3 ABG O2 Saturation ABG Base Excess ABG Hemoglobin ABG Oxyhemoglobin VBG pH Oxyhemoglobin Sodium Potassium Chloride Carbon Dioxide BUN Creatinine Glucose POC Glucose 112 H 140 H Lactic Acid Calcium Ferritin AST Alkaline Phosphatase Lactate Dehydrogenase Total Creatine Kinase CK-MB (CK-2) C-Reactive Protein Total Protein Albumin Troponin T HDL Cholesterol Urine WBC (Auto) Urine Creatinine Urine Total Protein Coronavirus (PCR) Positive A Crossmatch 06/30/20 06/30/20 06/30/20 04:10 04:10 06:09 WBC RBC 2.44 L Hgb 7.1 L Hct 21.5 L MCHC RDW 16.6 H Lymph % (Auto) 11.0 L [place] % (Auto) 10.8 H Eos % (Auto) Lymph # 0.9 L [place] # 0.9 H Seg Neutrophils % 73.7 H Seg Neuts % (Manual) Lymphocytes % (Manual) Seg Neutrophils # Seg Neutrophils # Man Lymphocytes # (Manual) Eosinophils % (Manual) Monocytes # (Manual) Eosinophils # (Manual) D-Dimer Heparin Anti-Xa Level ABG pH POC ABG pCO2 POC ABG pO2 ABG pO2 ABG HCO3 ABG O2 Saturation ABG Base Excess ABG Hemoglobin ABG Oxyhemoglobin VBG pH Oxyhemoglobin Sodium Potassium Chloride 109.1 H Carbon Dioxide BUN 74 H Creatinine 1.3 H Glucose 191 H POC Glucose 187 H Lactic Acid Calcium 7.8 L Ferritin AST Alkaline Phosphatase Lactate Dehydrogenase Total Creatine Kinase CK-MB (CK-2) C-Reactive Protein Total Protein Albumin Troponin T HDL Cholesterol Urine WBC (Auto) Urine Creatinine Urine Total Protein Coronavirus (PCR) Crossmatch 06/30/20 06/30/20 06/30/20 12:04 17:43 23:41 WBC RBC Hgb Hct MCHC RDW Lymph % (Auto) [place] % (Auto) Eos % (Auto) Lymph # [place] # Seg Neutrophils % Seg Neuts % (Manual) Lymphocytes % (Manual) Seg Neutrophils # Seg Neutrophils # Man Lymphocytes # (Manual) Eosinophils % (Manual) Monocytes # (Manual) Eosinophils # (Manual) D-Dimer Heparin Anti-Xa Level ABG pH POC ABG pCO2 POC ABG pO2 ABG pO2 ABG HCO3 ABG O2 Saturation ABG Base Excess ABG Hemoglobin ABG Oxyhemoglobin VBG pH Oxyhemoglobin Sodium Potassium Chloride Carbon Dioxide BUN Creatinine Glucose POC Glucose 112 H 177 H 143 H Lactic Acid Calcium Ferritin AST Alkaline Phosphatase Lactate Dehydrogenase Total Creatine Kinase CK-MB (CK-2) C-Reactive Protein Total Protein Albumin Troponin T HDL Cholesterol Urine WBC (Auto) Urine Creatinine Urine Total Protein Coronavirus (PCR) Crossmatch 07/01/20 07/01/20 07/01/20 05:02 05:52 06:01 WBC 12.6 H RBC 2.95 L Hgb 8.2 L Hct 26.0 L MCHC RDW 16.9 H Lymph % (Auto) [place] % (Auto) Eos % (Auto) Lymph # [place] # Seg Neutrophils % Seg Neuts % (Manual) Lymphocytes % (Manual) Seg Neutrophils # Seg Neutrophils # Man 8.6 H Lymphocytes # (Manual) Eosinophils % (Manual) 5.0 H Monocytes # (Manual) Eosinophils # (Manual) 0.6 H D-Dimer Heparin Anti-Xa Level ABG pH POC ABG pCO2 POC ABG pO2 ABG pO2 ABG HCO3 ABG O2 Saturation ABG Base Excess ABG Hemoglobin 8.2 L ABG Oxyhemoglobin VBG pH Oxyhemoglobin Sodium Potassium Chloride Carbon Dioxide BUN Creatinine Glucose POC Glucose 129 H Lactic Acid Calcium Ferritin AST Alkaline Phosphatase Lactate Dehydrogenase Total Creatine Kinase CK-MB (CK-2) C-Reactive Protein Total Protein Albumin Troponin T HDL Cholesterol Urine WBC (Auto) Urine Creatinine Urine Total Protein Coronavirus (PCR) Crossmatch 07/01/20 07/01/20 07/01/20 06:01 06:01 06:08 WBC RBC Hgb Hct MCHC RDW Lymph % (Auto) [place] % (Auto) Eos % (Auto) Lymph # [place] # Seg Neutrophils % Seg Neuts % (Manual) Lymphocytes % (Manual) Seg Neutrophils # Seg Neutrophils # Man Lymphocytes # (Manual) Eosinophils % (Manual) Monocytes # (Manual) Eosinophils # (Manual) D-Dimer Heparin Anti-Xa Level ABG pH POC ABG pCO2 POC ABG pO2 ABG pO2 ABG HCO3 ABG O2 Saturation ABG Base Excess ABG Hemoglobin ABG Oxyhemoglobin VBG pH Oxyhemoglobin Sodium 147 H Potassium Chloride 108.0 H Carbon Dioxide BUN 71 H Creatinine 1.3 H Glucose 193 H POC Glucose 192 H Lactic Acid Calcium 8.1 L Ferritin AST Alkaline Phosphatase Lactate Dehydrogenase Total Creatine Kinase 300 H CK-MB (CK-2) C-Reactive Protein Total Protein Albumin Troponin T 0.067 H HDL Cholesterol 61 H Urine WBC (Auto) Urine Creatinine Urine Total Protein Coronavirus (PCR) Crossmatch 07/01/20 07/01/20 07/02/20 12:23 17:40 00:18 WBC RBC Hgb Hct MCHC RDW Lymph % (Auto) [place] % (Auto) Eos % (Auto) Lymph # [place] # Seg Neutrophils % Seg Neuts % (Manual) Lymphocytes % (Manual) Seg Neutrophils # Seg Neutrophils # Man Lymphocytes # (Manual) Eosinophils % (Manual) Monocytes # (Manual) Eosinophils # (Manual) D-Dimer Heparin Anti-Xa Level ABG pH POC ABG pCO2 POC ABG pO2 ABG pO2 ABG HCO3 ABG O2 Saturation ABG Base Excess ABG Hemoglobin ABG Oxyhemoglobin VBG pH Oxyhemoglobin Sodium Potassium Chloride Carbon Dioxide BUN Creatinine Glucose POC Glucose 111 H 135 H 145 H Lactic Acid Calcium Ferritin AST Alkaline Phosphatase Lactate Dehydrogenase Total Creatine Kinase CK-MB (CK-2) C-Reactive Protein Total Protein Albumin Troponin T HDL Cholesterol Urine WBC (Auto) Urine Creatinine Urine Total Protein Coronavirus (PCR) Crossmatch 07/02/20 07/02/20 07/02/20 04:11 04:23 05:54 WBC RBC Hgb Hct MCHC RDW Lymph % (Auto) [place] % (Auto) Eos % (Auto) Lymph # [place] # Seg Neutrophils % Seg Neuts % (Manual) Lymphocytes % (Manual) Seg Neutrophils # Seg Neutrophils # Man Lymphocytes # (Manual) Eosinophils % (Manual) Monocytes # (Manual) Eosinophils # (Manual) D-Dimer Heparin Anti-Xa Level ABG pH POC ABG pCO2 POC ABG pO2 ABG pO2 ABG HCO3 ABG O2 Saturation ABG Base Excess ABG Hemoglobin 5.4 L ABG Oxyhemoglobin VBG pH Oxyhemoglobin Sodium Potassium Chloride 108.6 H Carbon Dioxide BUN 72 H Creatinine Glucose 112 H POC Glucose 137 H Lactic Acid Calcium 7.8 L Ferritin AST Alkaline Phosphatase Lactate Dehydrogenase Total Creatine Kinase CK-MB (CK-2) C-Reactive Protein Total Protein Albumin Troponin T HDL Cholesterol Urine WBC (Auto) Urine Creatinine Urine Total Protein Coronavirus (PCR) Crossmatch 07/02/20 07/02/20 07/02/20 11:38 18:04 23:59 WBC RBC Hgb Hct MCHC RDW Lymph % (Auto) [place] % (Auto) Eos % (Auto) Lymph # [place] # Seg Neutrophils % Seg Neuts % (Manual) Lymphocytes % (Manual) Seg Neutrophils # Seg Neutrophils # Man Lymphocytes # (Manual) Eosinophils % (Manual) Monocytes # (Manual) Eosinophils # (Manual) D-Dimer Heparin Anti-Xa Level ABG pH POC ABG pCO2 POC ABG pO2 ABG pO2 ABG HCO3 ABG O2 Saturation ABG Base Excess ABG Hemoglobin ABG Oxyhemoglobin VBG pH Oxyhemoglobin Sodium Potassium Chloride Carbon Dioxide BUN Creatinine Glucose POC Glucose 128 H 135 H 156 H Lactic Acid Calcium Ferritin AST Alkaline Phosphatase Lactate Dehydrogenase Total Creatine Kinase CK-MB (CK-2) C-Reactive Protein Total Protein Albumin Troponin T HDL Cholesterol Urine WBC (Auto) Urine Creatinine Urine Total Protein Coronavirus (PCR) Crossmatch 07/03/20 07/03/20 07/03/20 03:49 06:00 11:31 WBC RBC Hgb Hct MCHC RDW Lymph % (Auto) [place] % (Auto) Eos % (Auto) Lymph # [place] # Seg Neutrophils % Seg Neuts % (Manual) Lymphocytes % (Manual) Seg Neutrophils # Seg Neutrophils # Man Lymphocytes # (Manual) Eosinophils % (Manual) Monocytes # (Manual) Eosinophils # (Manual) D-Dimer Heparin Anti-Xa Level ABG pH POC ABG pCO2 POC ABG pO2 ABG pO2 121.0 H ABG HCO3 ABG O2 Saturation ABG Base Excess ABG Hemoglobin 8.5 L ABG Oxyhemoglobin VBG pH Oxyhemoglobin Sodium Potassium Chloride Carbon Dioxide BUN Creatinine Glucose POC Glucose 135 H 141 H Lactic Acid Calcium Ferritin AST Alkaline Phosphatase Lactate Dehydrogenase Total Creatine Kinase CK-MB (CK-2) C-Reactive Protein Total Protein Albumin Troponin T HDL Cholesterol Urine WBC (Auto) Urine Creatinine Urine Total Protein Coronavirus (PCR) Crossmatch 07/03/20 07/03/20 07/04/20 16:07 17:40 05:49 WBC RBC Hgb Hct MCHC RDW Lymph % (Auto) [place] % (Auto) Eos % (Auto) Lymph # [place] # Seg Neutrophils % Seg Neuts % (Manual) Lymphocytes % (Manual) Seg Neutrophils # Seg Neutrophils # Man Lymphocytes # (Manual) Eosinophils % (Manual) Monocytes # (Manual) Eosinophils # (Manual) D-Dimer Heparin Anti-Xa Level ABG pH POC ABG pCO2 POC ABG pO2 ABG pO2 126.9 H ABG HCO3 ABG O2 Saturation ABG Base Excess ABG Hemoglobin 8.1 L ABG Oxyhemoglobin VBG pH Oxyhemoglobin Sodium Potassium Chloride Carbon Dioxide BUN Creatinine Glucose POC Glucose 120 H 128 H Lactic Acid Calcium Ferritin AST Alkaline Phosphatase Lactate Dehydrogenase Total Creatine Kinase CK-MB (CK-2) C-Reactive Protein Total Protein Albumin Troponin T HDL Cholesterol Urine WBC (Auto) Urine Creatinine Urine Total Protein Coronavirus (PCR) Crossmatch 07/04/20 11:54 WBC RBC Hgb Hct MCHC RDW Lymph % (Auto) [place] % (Auto) Eos % (Auto) Lymph # [place] # Seg Neutrophils % Seg Neuts % (Manual) Lymphocytes % (Manual) Seg Neutrophils # Seg Neutrophils # Man Lymphocytes # (Manual) Eosinophils % (Manual) Monocytes # (Manual) Eosinophils # (Manual) D-Dimer Heparin Anti-Xa Level ABG pH POC ABG pCO2 POC ABG pO2 ABG pO2 ABG HCO3 ABG O2 Saturation ABG Base Excess ABG Hemoglobin ABG Oxyhemoglobin VBG pH Oxyhemoglobin Sodium Potassium Chloride Carbon Dioxide BUN Creatinine Glucose POC Glucose 168 H Lactic Acid Calcium Ferritin AST Alkaline Phosphatase Lactate Dehydrogenase Total Creatine Kinase CK-MB (CK-2) C-Reactive Protein Total Protein Albumin Troponin T HDL Cholesterol Urine WBC (Auto) Urine Creatinine Urine Total Protein Coronavirus (PCR) Crossmatch Chest x-ray: image reviewed (ETT in good position; small effusions) Allied health notes reviewed: nursing
--- NOTE | 2020-07-04 18:39 | Progress Note ---
Assessment and Plan 1. Rectal bleed - based on description, anorectal in origin, and not clinically significant. - will check H/H and monitor for further bleeding. No plans for endoscopy at present. Subjective Date of service: 07/04/20 Principal diagnosis: Ac hypoxemic resp failure; COVID-19; pneumonia; CHF; Pulm HTN; OHS; DM II Interval history: Asked to see pt for 2 BMs yesterday, with small amount of BRB noted mixed brown stool, per RN. No further bleeding reported today. Pt critically ill with COVID and sequelae. Objective - Exam Narrative Exam: Pt not examined due to COVID, and no urgent need for physical exam. - Constitutional Vitals: Vital Signs - 12hr 07/04/20 07/04/20 07/04/20 07:00 08:00 08:30 Pulse Rate 71 69 70 Pulse Rate [ 73 From Monitor] Respiratory 15 15 Rate Blood Pressure 154/55 161/60 158/65 O2 Sat by Pulse 100 100 99 Oximetry 07/04/20 07/04/20 07/04/20 09:01 09:53 10:01 Pulse Rate 68 77 76 Pulse Rate [ From Monitor] Respiratory 16 22 22 Rate Blood Pressure 143/56 145/85 164/64 O2 Sat by Pulse 100 98 99 Oximetry 07/04/20 07/04/20 07/04/20 10:12 10:13 11:01 Pulse Rate 75 75 72 Pulse Rate [ From Monitor] Respiratory 25 H Rate Blood Pressure 164/64 164/64 147/65 O2 Sat by Pulse 99 Oximetry 07/04/20 07/04/20 07/04/20 11:29 12:00 13:00 Pulse Rate 75 65 71 Pulse Rate [ 69 From Monitor] Respiratory 23 20 22 Rate Blood Pressure 172/64 148/65 159/66 O2 Sat by Pulse 98 100 99 Oximetry 07/04/20 07/04/20 07/04/20 13:09 14:01 15:00 Pulse Rate 74 76 78 Pulse Rate [ From Monitor] Respiratory 27 H 26 H Rate Blood Pressure 159/66 146/53 132/53 O2 Sat by Pulse 99 97 Oximetry 07/04/20 16:03 Pulse Rate 77 Pulse Rate [ From Monitor] Respiratory 25 H Rate Blood Pressure 132/53 O2 Sat by Pulse 97 Oximetry - Labs CBC & Chem 7: 07/01/20 06:01 07/02/20 04:23 Labs: Abnormal lab results 07/04/20 07/04/20 07/04/20 Range/Units 05:49 11:54 18:00 POC Glucose 128 H 168 H 133 H (70-105) Medications & Allergies - Medications Allergies/Adverse Reactions: Allergies No Known Allergies Allergy (Verified 01/21/20 12:28) Home Medications: Home Medications Medication Instructions Recorded Confirmed Last Taken Type AtorvaSTATin [Lipitor] 20 mg PO QHS 05/12/20 05/29/20 Unknown History lisinopriL [Zestril TAB] 40 mg PO QDAY 05/12/20 05/29/20 Unknown History metFORMIN [Glucophage] 850 mg PO BID 05/12/20 05/29/20 Unknown History Acetaminophen [Acetaminophen TAB] 650 mg PO Q4H PRN tablet 05/13/20 05/29/20 Unknown Rx Dicyclomine [Bentyl] 20 mg PO BID #20 tablet 05/13/20 05/29/20 Unknown Rx Famotidine [Pepcid] 20 mg PO BID #30 tablet 05/13/20 05/29/20 Unknown Rx carvediloL [Coreg] 6.25 mg PO BID #60 05/13/20 05/29/20 Unknown Rx Active Medications: Generic Name Dose Route Start Last Admin Trade Name Freq PRN Reason Stop Dose Admin Acetaminophen 650 mg 06/09/20 10:57 06/29/20 21:18 Tylenol FEEDTUBE 650 mg Q6H PRN Administration Fever >101 Amlodipine Besylate 10 mg 06/02/20 11:00 07/04/20 10:13 Amlodipine PO 10 mg DAILY NELSON Administration Lipase/Protease/Amylase 1 each 05/29/20 13:39 06/24/20 22:51 Pancreazhoracio Lawson 10,500 Unit FEEDTUBE 1 each PRN PRN Administration For Clogged Feeding Tube Carvedilol 12.5 mg 06/03/20 10:00 07/04/20 10:12 Coreg PO 12.5 mg BID NELSON Administration Clonidine HCl 0.2 mg 06/23/20 22:00 07/04/20 10:13 Catapres PO 0.2 mg Q12HR NELSON Administration Glycopyrrolate 2 mg 06/09/20 14:00 07/04/20 13:09 Glycopyrrolate PO 2 mg TID NELSON Administration Heparin Sodium (Porcine) 5,000 unit 06/30/20 14:00 07/04/20 13:09 Heparin SUB-Q 5,000 unit Q8HR NELSON Administration Hydralazine HCl 50 mg 06/03/20 09:00 07/04/20 13:09 Apresoline PO 50 mg Q8HR NELSON Administration Hydrophilic Ointment 1 applic 05/28/20 13:49 Vaseline Lip Therapy TP Q2HR PRN Dry Lips Vasopressin 20 unit/ Sodium 101 mls @ 9.09 mls/hr 06/26/20 19:00 06/26/20 19:30 Chloride IV 0 units/min TITR NELSON 0 mls/hr Titration Protocol 0.03 UNITS/MIN Norepinephrine 4 mg in 250 mls @ 7.5 mls/hr 06/26/20 19:00 06/26/20 20:06 Levophed Drip 4 Mg/Ns 250 Ml IV 0 mcg/min TITR NELSON 0 mls/hr Titration Protocol 2 MCG/MIN Phenylephrine HCl 100 mg/ 100 mls @ 3 mls/hr 06/26/20 18:15 Sodium Chloride IV TITR NELSON Protocol 50 MCG/MIN Sodium Chloride 500 mls @ 5 mls/hr 06/30/20 22:00 06/30/20 21:42 Nacl 0.9% 500 Ml IV 5 mls/hr DIRECT NELSON Administration Insulin Glargine 10 units 06/08/20 22:00 07/03/20 21:09 Lantus SUB-Q 10 units QHS NELSON Administration Insulin Human Lispro 0 unit 05/29/20 18:00 07/04/20 13:10 Humalog SUB-Q 3 unit Q6H NELSON Administration Protocol Labetalol HCl 20 mg 06/03/20 09:00 07/02/20 13:21 Labetalol IV 20 mg Q4H PRN Administration HYPERTENSION Lansoprazole 30 mg 06/05/20 22:00 07/04/20 10:12 Prevacid Solutab FEEDTUBE 30 mg BID NELSON Administration Levetiracetam 500 mg 06/16/20 11:00 07/04/20 10:12 Keppra PO 500 mg BID NELSON Administration Lidocaine HCl 15 ml 06/26/20 20:00 07/04/20 13:09 Magic Mouthwash PO 15 ml TID NELSON Administration Metoclopramide HCl 10 mg 06/10/20 20:00 07/04/20 13:13 Reglan IV 10 mg Q6H NELSON Administration Modafinil 100 mg 07/02/20 20:00 07/04/20 10:12 Provigil PO 100 mg DAILY NELSON Administration Multi-Ingred Cream/Lotion/Oil/Oint 1 applic 05/28/20 13:49 Artificial Tears Ophth Oint OU Q4HR PRN Dry Eye(s) Ondansetron HCl 4 mg 06/02/20 09:00 06/09/20 16:48 Zofran IV 4 mg Q8H PRN Administration Nausea And Vomiting Scopolamine 1 each 06/05/20 14:00 07/02/20 09:33 Transderm-Scop TD 1 each Q3D NELSON Administration Senna 17.6 mg 06/03/20 10:00 07/04/20 10:13 Senokot FEEDTUBE 17.6 mg BID NELSON Administration Simple Syrup 15 ml 05/29/20 13:39 Simple Syrup FEEDTUBE PRN PRN Hypoglycemia Simple Syrup 30 ml 05/29/20 13:39 Simple Syrup FEEDTUBE PRN PRN Hypoglycemia Sodium Bicarbonate 325 mg 05/29/20 13:39 Sodium Bicarbonate FEEDTUBE PRN PRN For Clogged Feeding Tube Sodium Chloride 10 ml 05/28/20 22:00 07/04/20 10:14 Sodium Chloride Flush Syringe 10 Ml IV 10 ml BID NELSON Administration Sodium Chloride 10 ml 05/28/20 19:08 06/16/20 17:50 Sodium Chloride Flush Syringe 10 Ml IV 10 ml PRN PRN Administration LINE FLUSH HEART Score - HEART Score Troponin: Troponin T 0.067 ng/mL (0.00-0.029) H 07/01/20 06:01
[2020-07-05] MEDS: INSULIN GLARGINE 100 UNITS/ML SUB-Q SCH ×2 (01:22→21:29)
[2020-07-05] MEDS: cloNIDine 0.2 MG TAB PO SCH ×3 (01:24→21:29)
[2020-07-05] MEDS: LANSOPRAZOLE 30 MG SOLUTAB FEEDTUBE SCH ×3 (01:24→21:29)
[2020-07-05] MEDS: levETIRAcetam 500 MG/5 ML ORAL LIQD PO SCH ×3 (01:24→21:29)
[2020-07-05] MEDS: carvediloL 12.5 MG TAB PO SCH ×3 (01:24→21:46)
[2020-07-05] MEDS: GLYCOPYRROLATE 2 MG TAB PO SCH ×4 (01:25→20:19)
[2020-07-05] MEDS: MAGIC MOUTHWASH 30ML PO SCH ×4 (01:27→20:19)
[2020-07-05] MEDS: METOCLOPRAMIDE 10 MG/2 ML INJ IV SCH ×5 (01:27→21:29)
[2020-07-05] MEDS: HEPARIN 5,000 UNIT/1 ML VIAL SUB-Q SCH ×4 (01:27→21:28)
[2020-07-05] MEDS: INSULIN LISPRO 100 UNIT/ML VIAL 3 mL SUB-Q SCH ×4 (01:28→18:48)
[2020-07-05 01:30] LABS: Mean Corpuscular HGB Conc 33 % (30-34); Mean Corpuscular Volume 90 fl (79-97); Platelet Count 307 K/mm3 (140-440); Red Blood Count 2.35 M/mm3 (3.65-5.03); Red Cell Distribution Width 16.8 % (13.2-15.2)
[2020-07-05 01:49] LABS: Hematocrit 21.1 % (30.3-42.9); Hemoglobin 6.9 gm/dl (10.1-14.3)
[2020-07-05] MEDS ORDERED: SODIUM CHLORIDE 0.9% 500 ML 500 ML IV ONE (02:16)
[2020-07-05 04:23] LABS: Anisocytosis Few; Target Cells Few; Total Cells Counted 100
[2020-07-05 04:24] LABS: Hypochromasia Few; Macrocytosis Few; Platelet Estimate Consistent w Auto; Schistocytes Rare
[2020-07-05] MEDS: hydrALAZINE 25 MG TAB PO SCH ×3 (06:36→21:29)
[2020-07-05] MEDS: SENNOSIDES ORAL LIQD 8.8 MG/5 ML ORAL LIQD FEEDTUBE SCH ×3 (07:29→21:28)
--- NOTE | 2020-07-05 08:54 | Progress Note ---
Assessment and Plan Assessment and plan: --Rectal bleeding; Hb dropped from 8.2 -6.9, Transfuse 2 units of PRBC Closely monitor H&H, GI following, no plans of endoscopy -- s/p cardiac arrest 07/01/2020,s/p CPR per ACLS protocol, refer to code sheet Intubated on vent, full CODE STATUS s/p Cardiac arrest on admission and on 06/26 Cardiology team on board Conservative management as per cardiology --Febrile illness with sepsis persistently positive for COVID-19 and Klebsiella pneumoniae Continue empiric antibiotics - Continue cefepime 2 g IV every 8 hours for now, ID following, completed treatment for COVID-19 -- Acute hypoxemic respiratory failure From COVID-19 viral infection and Klebsiella pneumoniae, intubated on admission, extubated on 06/12/20 then placed on high flow o2 patient developed another respiratory arrest on 06/26 - reintubated CC following, consider trach and PEG if unable to wean --COVID-19 positive since 05/28/2020 Completed treatment, ID following Repeat test 06/29 still positive --Superficial left cephalic vein DVT/elevated D-dimers[COVID 19] Patient is on heparin drip from 05/29/20 D-dimers improved [phone] s/p heparin drip, Discussed with ID, treated with Eliquis 5 mg twice a day for 1 week[per ID] stop date 06/26/2020 -- Acute metabolic encephalopathy, POA likely from sepsis and s/p cardiac arrest with possible anoxic injury -- Acute renal failure: likely ATN Resolved, avoid nephrotoxins --COVID-19 b/l PNA Completed remdesivir on 06/02 Completed dexamethasone - Last dose 06/07 ID recs appreciated. --Klebsiella pneumonia: Initially completed antibiotics with cefepime Repeat sputum culture still positive for Klebsiella, restarted antibiotic Completed second round of 5 days of cefepime on 07/04/2020 --CHF (congestive heart failure) Cardiology following. Ef 45% -- Coffee ground emesis -Stress ulcers Possible stress ulcers, On PPI H/H again dropped - transfuse GI evaluation -- Hypertension; moderate control Continue amlodipine, coreg, clonidine and hydralazine --Mild LFT elevation: likely from COVID-19. cont to monitor -- DVT prophylaxis Eliquis, SCD to bilateral lower extremities while in bed -- Advance care planning Patient is critically ill with multiple medical problems Poor prognosis, family updated and requesting full code The high probability of a clinically significant, sudden or life threatening deterioration of the [CVS, renal, respiratory, SPACE TECH[employer]OLOGIST] system(s) required my full and direct attention, intervention and personal management. The aggregate critical care time was [35] minutes. This time is in addition to time spent performing reported procedures but includes the following: [x] Data Review and interpretation [x] Patient assessment and monitoring of vital signs [x] Documentation [x] Medication orders and management 06/27; Code blue called yesterday. ACLS initiated, Pt found to have Asystolic Arrest with eventual return of perfusing cardiac rhythm. patient reintubated during code, transferred to ICU, called family and updated 06/28: Patient is spiking fever, started on empiric antibiotic, ordered blood urine and sputum culture. We will reconsult ID. Discussed with patient's son in the evening. Family wants to continue full CODE STATUS. Discussed with critical care attending and RN in length. 06/29: Repeat COVID-19 test is positive. Patient remains on ventilator, continue tube feeding diet. Renal function stable, H&H stable. GI recommendation appreciated -no plan for endoscopy now as there is no active bleeding. 06/30: Renal function improving, patient remains positive for COVID. Tolerating tube feeding, wean off vent as tolerated. Patient remains with poor prognosis 07/05; patient has significant drop in H&H, hemoglobin today is 6.9, heme positive stool, type and cross transfuse 2 units of PRBC GI following, no plans of endoscopy History Interval history: I have seen and examined the patient at the bedside in ICU Isolation precautions, PPE protocols fully observed Patient orally intubated on ventilatory support Significant drop in H&H Heme positive stool/rectal bleeding Vital signs reviewed Hospitalist Physical - Constitutional Vitals: Temp Pulse Resp BP Pulse Ox 99.6 F 80 20 138/41 99 07/05/20 04:00 07/05/20 08:32 07/05/20 08:00 07/05/20 08:32 07/05/20 08:32 General appearance: Present: mild distress, well-nourished, obese (Morbidly obes e), other (On high flow oxygen) - EENT Eyes: Present: PERRL, EOM intact - Neck Neck: Present: supple, normal ROM - Respiratory Respiratory effort: normal Respiratory: bilateral: diminished, rhonchi, negative: rales, wheezing - Cardiovascular Rhythm: regular Heart Sounds: Present: S1 & S2 - Extremities Extremities: no ischemia, No edema - Abdominal General gastrointestinal: soft, non-tender, non-distended, normal bowel sounds - Integumentary Integumentary: Present: clear, warm - Psychiatric Psychiatric: other (On ventilatory support) - Neurologic Neurologic: other (Intubated on vent) HEART Score - HEART Score Troponin: Troponin T 0.067 ng/mL (0.00-0.029) H 07/01/20 06:01 Results - Labs CBC & Chem 7: 07/05/20 01:12 07/02/20 04:23 Labs: Laboratory Last Values WBC 10.8 K/mm3 (4.5-11.0) 07/05/20 01:12 RBC 2.35 M/mm3 (3.65-5.03) L 07/05/20 01:12 Hgb 6.9 gm/dl (10.1-14.3) L 07/05/20 01:12 Hct 21.1 % (30.3-42.9) L 07/05/20 01:12 MCV 90 fl (79-97) 07/05/20 01:12 MCH 29 pg (28-32) 07/05/20 01:12 MCHC 33 % (30-34) 07/05/20 01:12 RDW 16.8 % (13.2-15.2) H 07/05/20 01:12 Plt Count 307 K/mm3 (140-440) 07/05/20 01:12 Lymph % (Auto) 11.0 % (13.4-35.0) L 06/30/20 04:10 [place] % (Auto) 10.8 % (0.0-7.3) H 06/30/20 04:10 Eos % (Auto) 3.9 % (0.0-4.3) 06/30/20 04:10 Baso % (Auto) 0.6 % (0.0-1.8) 06/30/20 04:10 Lymph # 0.9 K/mm3 (1.2-5.4) L 06/30/20 04:10 [place] # 0.9 K/mm3 (0.0-0.8) H 06/30/20 04:10 Eos # 0.3 K/mm3 (0.0-0.4) 06/30/20 04:10 Baso # 0.1 K/mm3 (0.0-0.1) 06/30/20 04:10 Seg Neutrophils % 73.7 % (40.0-70.0) H 06/30/20 04:10 Add Manual Diff Complete 07/05/20 01:12 Total Counted 100 07/05/20 01:12 Seg Neutrophils # 6.2 K/mm3 (1.8-7.7) 06/30/20 04:10 Seg Neuts % (Manual) 74.0 % (40.0-70.0) H 07/05/20 01:12 Band Neutrophils % 0 % 07/05/20 01:12 Lymphocytes % (Manual) 12.0 % (13.4-35.0) L 07/05/20 01:12 Reactive Lymphs % (Man) 0 % 07/05/20 01:12 Monocytes % (Manual) 9.0 % (0.0-7.3) H 07/05/20 01:12 Eosinophils % (Manual) 4.0 % (0.0-4.3) 07/05/20 01:12 Basophils % (Manual) 1.0 % (0.0-1.8) 07/05/20 01:12 Metamyelocytes % 0 % 07/05/20 01:12 Myelocytes % 0 % 07/05/20 01:12 Promyelocytes % 0 % 07/05/20 01:12 Blast Cells % 0 % 07/05/20 01:12 Nucleated RBC % Not Reportable 07/05/20 01:12 Seg Neutrophils # Man 8.0 K/mm3 (1.8-7.7) H 07/05/20 01:12 Band Neutrophils # 0.0 K/mm3 07/05/20 01:12 Lymphocytes # (Manual) 1.3 K/mm3 (1.2-5.4) 07/05/20 01:12 Abs React Lymphs (Man) 0.0 K/mm3 07/05/20 01:12 Monocytes # (Manual) 1.0 K/mm3 (0.0-0.8) H 07/05/20 01:12 Eosinophils # (Manual) 0.4 K/mm3 (0.0-0.4) 07/05/20 01:12 Basophils # (Manual) 0.1 K/mm3 (0.0-0.1) 07/05/20 01:12 Metamyelocytes # 0.0 K/mm3 07/05/20 01:12 Myelocytes # 0.0 K/mm3 07/05/20 01:12 Promyelocytes # 0.0 K/mm3 07/05/20 01:12 Blast Cells # 0.0 K/mm3 07/05/20 01:12 WBC Morphology Not Reportable 07/05/20 01:12 Hypersegmented Neuts Not Reportable 07/05/20 01:12 Hyposegmented Neuts Not Reportable 07/05/20 01:12 Hypogranular Neuts Not Reportable 07/05/20 01:12 Smudge Cells Not Reportable 07/05/20 01:12 Toxic Granulation Not Reportable 07/05/20 01:12 Toxic Vacuolation Not Reportable 07/05/20 01:12 Dohle Bodies Not Reportable 07/05/20 01:12 Pelger-Huet Anomaly Not Reportable 07/05/20 01:12 Sanjuanita Rods Not Reportable 07/05/20 01:12 Platelet Estimate Consistent w auto 07/05/20 01:12 Clumped Platelets Not Reportable 07/05/20 01:12 Plt Clumps, EDTA Not Reportable 07/05/20 01:12 Large Platelets Not Reportable 07/05/20 01:12 Giant Platelets Not Reportable 07/05/20 01:12 Platelet Satelliting Not Reportable 07/05/20 01:12 Plt Morphology Comment Not Reportable 07/05/20 01:12 RBC Morphology Not Reportable 07/05/20 01:12 Dimorphic RBCs Not Reportable 07/05/20 01:12 Polychromasia Few 07/05/20 01:12 Hypochromasia Few 07/05/20 01:12 Poikilocytosis Not Reportable 07/05/20 01:12 Anisocytosis Few 07/05/20 01:12 Microcytosis Not Reportable 07/05/20 01:12 Macrocytosis Few 07/05/20 01:12 Spherocytes Not Reportable 07/05/20 01:12 Pappenheimer Bodies Not Reportable 07/05/20 01:12 Sickle Cells Not Reportable 07/05/20 01:12 Target Cells Few 07/05/20 01:12 Tear Drop Cells Not Reportable 07/05/20 01:12 Ovalocytes Not Reportable 07/05/20 01:12 Helmet Cells Not Reportable 07/05/20 01:12 Jones-Brule Bodies Not Reportable 07/05/20 01:12 Ralls Rings Not Reportable 07/05/20 01:12 Julia Cells Not Reportable 07/05/20 01:12 Bite Cells Not Reportable 07/05/20 01:12 Crenated Cell Not Reportable 07/05/20 01:12 Elliptocytes Not Reportable 07/05/20 01:12 Acanthocytes (Spur) Not Reportable 07/05/20 01:12 Rouleaux Not Reportable 07/05/20 01:12 Hemoglobin C Crystals Not Reportable 07/05/20 01:12 Schistocytes Rare 07/05/20 01:12 Malaria parasites Not Reportable 07/05/20 01:12 Kev Bodies Not Reportable 07/05/20 01:12 Hem Pathologist Commnt No 07/05/20 01:12 PT 14.2 Sec. (12.2-14.9) 05/29/20 15:10 INR 1.08 (0.87-1.13) 05/29/20 15:10 APTT 27.2 Sec. (24.2-36.6) 05/29/20 15:10 D-Dimer 2310.15 ng/mlDDU (0-234) H 06/29/20 14:45 Heparin Anti-Xa Level 0.34 U.I./ml (0.3-0.7) 06/19/20 10:46 ABG pH 7.350 pH Units (7.350-7.450) 07/03/20 16:07 POC ABG pCO2 35.8 mmHg (32.0-48.0) 07/01/20 05:02 ABG pCO2 44.1 mm Hg 07/03/20 16:07 ABG Oxyhemoglobin 92.6 (94-98) L 06/23/20 12:34 POC ABG pO2 90.8 mmHg (83-108) 07/01/20 05:02 ABG pO2 126.9 mm Hg (80.0-90.0) H 07/03/20 16:07 POC ABG HCO3 22.1 07/01/20 05:02 ABG HCO3 23.8 mmol/L (20.0-26.0) 07/03/20 16:07 ABG O2 Saturation 98.3 % (95.0-99.0) 07/03/20 16:07 ABG O2 Content 11.2 (0.0-44) 07/03/20 16:07 POC ABG Base Excess -2.3 07/01/20 05:02 ABG Base Excess -1.7 mmol/L (-2.0-3.0) 07/03/20 16:07 ABG Hemoglobin 8.1 gm/dl (12.0-16.0) L 07/03/20 16:07 ABG Carboxyhemoglobin 1.5 % (0.0-5.0) 07/03/20 16:07 ABG Methemoglobin 0.6 % (0.0-1.5) 07/03/20 16:07 VBG pH 7.152 (7.320-7.420) L* 05/28/20 13:47 Carboxyhemoglobin 0.5 (0.5-1.5) 06/23/20 12:34 Oxyhemoglobin 96.3 % (95.0-99.0) 07/03/20 16:07 FiO2 40 % 07/03/20 16:07 Sodium 144 mmol/L (137-145) 07/02/20 04:23 Potassium 3.8 mmol/L (3.6-5.0) 07/02/20 04:23 Chloride 108.6 mmol/L (98-107) H 07/02/20 04:23 Carbon Dioxide 24 mmol/L (22-30) 07/02/20 04:23 Anion Gap 15 mmol/L 07/02/20 04:23 BUN 72 mg/dL (7-17) H 07/02/20 04:23 Creatinine 1.2 mg/dL (0.6-1.2) 07/02/20 04:23 Estimated GFR 46 ml/min 07/02/20 04:23 BUN/Creatinine Ratio 60 % 07/02/20 04:23 Glucose 112 mg/dL (65-100) H 07/02/20 04:23 POC Glucose 92 (70-105) 07/05/20 05:44 Lactic Acid 0.60 mmol/L (0.7-2.0) L 06/27/20 05:00 Calcium 7.8 mg/dL (8.4-10.2) L 07/02/20 04:23 Ferritin 223.6 ng/mL (10.0-200.0) H 06/29/20 14:45 Total Bilirubin 0.20 mg/dL (0.1-1.2) 06/28/20 09:47 AST 24 units/L (5-40) 06/28/20 09:47 ALT 21 units/L (7-56) 06/28/20 09:47 Alkaline Phosphatase 113 units/L (35-129) 06/28/20 09:47 Lactate Dehydrogenase 367 units/L (91-180) H 06/29/20 14:45 C-Reactive Protein 3.60 mg/dL (0.00-1.30) H 06/29/20 14:45 Total Protein 5.0 g/dL (6.3-8.2) L 06/28/20 09:47 Albumin 2.1 g/dL (3.9-5) L 06/28/20 09:47 Albumin/Globulin Ratio 0.7 % 06/28/20 09:47 Total Creatine Kinase 300 units/L (30-135) H 07/01/20 06:01 CK-MB (CK-2) 2.0 ng/mL (0.0-4.0) 07/01/20 06:01 CK-MB (CK-2) Rel Index 0.6 (0-4) 07/01/20 06:01 Troponin T 0.067 ng/mL (0.00-0.029) H 07/01/20 06:01 Triglycerides 142 mg/dL (2-149) 07/01/20 06:01 Cholesterol 137 mg/dL (50-199) 07/01/20 06:01 LDL Cholesterol Direct 62 mg/dL (50-130) 07/01/20 06:01 HDL Cholesterol 61 mg/dL (40-59) H 07/01/20 06:01 Cholesterol/HDL Ratio 2.24 % 07/01/20 06:01 Procalcitonin 2.45 ng/mL (<0.15) 06/29/20 14:45 Urine Color Yellow (Yellow) 06/06/20 04:00 Urine Turbidity Cloudy (Clear) 06/06/20 04:00 Urine pH 5.0 (5.0-7.0) 06/06/20 04:00 Ur Specific [place] 1.012 (1.003-1.030) 06/06/20 04:00 Urine Protein 100 mg/dl mg/dL (Negative) 06/06/20 04:00 Urine Glucose (UA) 50 mg/dL (Negative) 06/06/20 04:00 Urine Ketones Neg mg/dL (Negative) 06/06/20 04:00 Urine Blood Sm (Negative) 06/06/20 04:00 Urine Nitrite Neg (Negative) 06/06/20 04:00 Urine Bilirubin Neg (Negative) 06/06/20 04:00 Urine Urobilinogen < 2.0 mg/dL (<2.0) 06/06/20 04:00 Ur Leukocyte Esterase Neg (Negative) 06/06/20 04:00 Urine WBC (Auto) 15.0 /HPF (0.0-6.0) H 06/06/20 04:00 Urine RBC (Auto) 23.0 /HPF (0.0-6.0) 06/06/20 04:00 U Epithel Cells (Auto) 8.0 /HPF (0-13.0) 06/06/20 04:00 Urine Bacteria (Auto) 2+ /HPF (Negative) 06/06/20 04:00 Amorphous Crystals 1+ 06/06/20 04:00 Hyaline Casts 16 /LPF 06/06/20 04:00 Urine Mucus 2+ /HPF 06/06/20 04:00 Urine Yeast (Budding) 2+ /HPF 06/03/20 Unknown Urine Creatinine 82.2 mg/dL (0.1-20.0) H 06/06/20 04:00 Urine Sodium 20 mmol/L 06/06/20 04:00 Urine Total Protein 196 mg/dL (5-11.8) H 06/06/20 04:00 Nasal Screen MRSA (PCR) Negative (Negative) 06/29/20 08:30 Coronavirus (PCR) Positive (Negative) A 06/29/20 Unknown Blood Type A POSITIVE 07/05/20 02:30 Antibody Screen Negative 07/05/20 02:30 Crossmatch See Detail 07/05/20 02:30 - Diagnostic Impressions Diagnostic Impressions: Echocardiogram Limited Views 05/29/20 13:52 Transthoracic Echocardiogram Indication: Pulm Embolus BP: 169/76 HR: 85 Conclusions *Limited study for RV size post cardiopulmonar arrest. *RV is only slightly dilated, no significant difference from prior echo 05/13/2020. *Global left ventricular systolic function is at the lower limits of normal. *The estimated ejection fraction is 45-50%. *Mild to moderate concentric left ventricular hypertrophy is observed. *The left and right atria are both mild to moderately dilated. Findings Left Ventricle: The left ventricular chamber size is mildly dilated. Mild to moderate concentric left ventricular hypertrophy is observed. Global left ventricular systolic function is at the lower limits of normal. The estimated ejection fraction is 45-50%. Left Atrium: The left atrium is mild to moderately dilated. Right Ventricle: The right ventricle is slightly dilated. Right Atrium: The right atrium is mild to moderately dilated. Aortic Valve: The aortic valve leaflets are moderately thickened. Mitral Valve: There is mitral annular calcification. The mitral valve leaflets are moderately thickened. Tricuspid Valve: The tricuspid valve leaflets are mildly thickened. Pericardium: A trivial pericardial effusion is visualized. NDUM: 05/29/20 1808 Amended Report Transthoracic Echocardiogram Indication: Pulm Embolus BP: 169/76 HR: 85 Conclusions *Limited study for RV size post cardiopulmonary arrest. *RV is only slightly dilated, no significant difference from prior echo 05/13/2020. *Global left ventricular systolic function is at the lower limits of normal. *The estimated ejection fraction is 45-50%. *Mild to moderate concentric left ventricular hypertrophy is observed. *The left and right atria are both mild to moderately dilated. Findings Left Ventricle: The left ventricular chamber size is mildly dilated. Mild to moderate concentric left ventricular hypertrophy is observed. Global left ventricular systolic function is at the lower limits of normal. The estimated ejection fraction is 45-50%. Left Atrium: The left atrium is mild to moderately dilated. Right Ventricle: The right ventricle is slightly dilated. Right Atrium: The right atrium is mild to moderately dilated. Aortic Valve: The aortic valve leaflets are moderately thickened. Mitral Valve: There is mitral annular calcification. The mitral valve leaflets are moderately thickened. Tricuspid Valve: The tricuspid valve leaflets are mildly thickened. Pericardium: A trivial pericardial effusion is visualized. Helm/IV: Voiding Method Indwelling Catheter IV Catheter Type [Left Wrist] INT / Saline Lock IV Catheter Type [Left Upper Mid-line arm] IV Catheter Type [Right CVL Internal Jugular] IV Catheter Type [Right Hand] INT / Saline Lock IV Catheter Type [Right Wrist] Not found on patient IV Catheter Type [Left Hand] INT / Saline Lock IV Catheter Type [Left INT / Saline Lock Antecubital] IV Catheter Type [Right Peripheral IV Forearm] IV Catheter Type [Left Leg] Intra-osseous Active Medications - Current Medications Current Medications: Generic Name Dose Route Start Last Admin Trade Name Freq PRN Reason Stop Dose Admin Acetaminophen 650 mg 06/09/20 10:57 06/29/20 21:18 Tylenol FEEDTUBE 650 mg Q6H PRN Administration Fever >101 Amlodipine Besylate 10 mg 06/02/20 11:00 07/04/20 10:13 Amlodipine PO 10 mg DAILY NELSON Administration Lipase/Protease/Amylase 1 each 05/29/20 13:39 06/24/20 22:[address] 10,500 Unit FEEDTUBE 1 each PRN PRN Administration For Clogged Feeding Tube Carvedilol 12.5 mg 06/03/20 10:00 07/05/20 01:24 Coreg PO 12.5 mg BID NELSON Administration Clonidine HCl 0.2 mg 06/23/20 22:00 07/05/20 01:24 Catapres PO 0.2 mg Q12HR NELSON Administration Glycopyrrolate 2 mg 06/09/20 14:00 07/05/20 01:25 Glycopyrrolate PO 2 mg TID NELSON Administration Heparin Sodium (Porcine) 5,000 unit 06/30/20 14:00 07/05/20 06:36 Heparin SUB-Q 5,000 unit Q8HR NELSON Administration Hydralazine HCl 50 mg 06/03/20 09:00 07/05/20 06:36 Apresoline PO 50 mg Q8HR NELSON Administration Hydrophilic Ointment 1 applic 05/28/20 13:49 Vaseline Lip Therapy TP Q2HR PRN Dry Lips Vasopressin 20 unit/ Sodium 101 mls @ 9.09 mls/hr 06/26/20 19:00 06/26/20 19:30 Chloride IV 0 units/min TITR NELSON 0 mls/hr Titration Protocol 0.03 UNITS/MIN Norepinephrine 4 mg in 250 mls @ 7.5 mls/hr 06/26/20 19:00 06/26/20 20:06 Levophed Drip 4 Mg/Ns 250 Ml IV 0 mcg/min TITR NELSON 0 mls/hr Titration Protocol 2 MCG/MIN Phenylephrine HCl 100 mg/ 100 mls @ 3 mls/hr 06/26/20 18:15 Sodium Chloride IV TITR NELSON Protocol 50 MCG/MIN Sodium Chloride 500 mls @ 5 mls/hr 06/30/20 22:00 06/30/20 21:42 Nacl 0.9% 500 Ml IV 5 mls/hr DIRECT NELSON Administration Insulin Glargine 10 units 06/08/20 22:00 07/05/20 01:22 Lantus SUB-Q 10 units QHS NELSON Administration Insulin Human Lispro 0 unit 05/29/20 18:00 07/05/20 07:29 Humalog SUB-Q Not Given Q6H [facility] Protocol Labetalol HCl 20 mg 06/03/20 09:00 07/02/20 13:21 Labetalol IV 20 mg Q4H PRN Administration HYPERTENSION Lansoprazole 30 mg 06/05/20 22:00 07/05/20 01:24 Prevacid Solutab FEEDTUBE 30 mg BID NELSON Administration Levetiracetam 500 mg 06/16/20 11:00 07/05/20 01:24 Keppra PO 500 mg BID NELSON Administration Lidocaine HCl 15 ml 06/26/20 20:00 07/05/20 01:27 Magic Mouthwash PO 15 ml TID NELSON Administration Metoclopramide HCl 10 mg 06/10/20 20:00 07/05/20 07:30 Reglan IV Not Given Q6H NELSON Modafinil 100 mg 07/02/20 20:00 07/04/20 10:12 Provigil PO 100 mg DAILY NELSON Administration Multi-Ingred Cream/Lotion/Oil/Oint 1 applic 05/28/20 13:49 Artificial Tears Ophth Oint OU Q4HR PRN Dry Eye(s) Ondansetron HCl 4 mg 06/02/20 09:00 06/09/20 16:48 Zofran IV 4 mg Q8H PRN Administration Nausea And Vomiting Scopolamine 1 each 06/05/20 14:00 07/02/20 09:33 Transderm-Scop TD 1 each Q3D NELSON Administration Senna 17.6 mg 06/03/20 10:00 07/05/20 07:29 Senokot FEEDTUBE Not Given BID NELSON Simple Syrup 15 ml 05/29/20 13:39 Simple Syrup FEEDTUBE PRN PRN Hypoglycemia Simple Syrup 30 ml 05/29/20 13:39 Simple Syrup FEEDTUBE PRN PRN Hypoglycemia Sodium Bicarbonate 325 mg 05/29/20 13:39 Sodium Bicarbonate FEEDTUBE PRN PRN For Clogged Feeding Tube Sodium Chloride 10 ml 05/28/20 22:00 07/05/20 07:29 Sodium Chloride Flush Syringe 10 Ml IV Not Given BID NELSON Sodium Chloride 10 ml 05/28/20 19:08 06/16/20 17:50 Sodium Chloride Flush Syringe 10 Ml IV 10 ml PRN PRN Administration LINE FLUSH Nutrition/Malnutrition Assess - Dietary Evaluation Nutrition/Malnutrition Findings: Nutrition Notes Start: 05/29/20 11:45 Freq: Status: Active Protocol: Document 07/03/20 11:16 [email or web address] (Rec: 07/03/20 12:21 [email or web address]) Co-Sign 07/03/20 11:16 LP Nutrition Notes Initial or Follow up Reassessment Current Diagnosis Acute Kidney Injury,Diabetes, Heart Failure,Respiratory Failure Other Pertinent Diagnosis COVID-19 (+) Current Diet Glucerna 1.2 at 55ml/hr Labs/Tests Reviewed Pertinent Medications Reviewed Height 5 ft 6 in Weight 123 kg [place] Body Weight (kg) 59.09 BMI 43.7 Weight Status Morbidly Obese Subjective/Other Information F/U for TF tolerance, rate, water. Per RN, Pt TF stopped for 1 hr yesterday d/t high residuals. TF running at 50ml/ hr. Percent of energy/protein needs met: 90%/48% Burn Absent Trauma Absent Current % PO Negligible Minimum of two criteria No physical signs of malnutrition Fluid Accumulation Mild (non-severe) #1 Nutrition Diagnosis Inadequate oral intake Diagnosis Progress(for reassessment Continues documentation) Is patient on ventilator? Yes Is Patient Ambulatory and/or Out of Bed No REE-([place]-St. Jeor-confined to bed) 2172.576 Kcal/Kg value to use for calculation 13 Approximate Energy Requirements Using 1599 kcal/Kg Calculation Used for Recommendations Kcal/kg Additional Notes Protein needs up to 148g (up to 2.5g/kg IBW) Fluid needs 1ml/kcal Nutrition Intervention Change Diet Order: Continue Nutrition Support: Glucerna 1.2 at 55ml/hr Flush 100ml q4h Kcal 1,584 Protein (gm) 79 Fluid (mL) 1,062 Goal #1 TF tolerance Goal #2 TF to meet at least 65%-70% energy and 80% pro needs Anticipated Discharge Needs: Unable to determine at this time Follow-Up By: 07/06/20 Additional Comments F/U TF tolerance
[2020-07-05] MEDS: amLODIPine 10 MG TAB PO SCH (10:01)
[2020-07-05] MEDS: MODAFINIL 100 MG TAB PO SCH (10:02)
[2020-07-05] MEDS: SCOPOLAMINE TRANSDERMAL PATCH 72 HR TD SCH (10:03)
--- NOTE | 2020-07-05 10:36 | Progress Note ---
Assessment and Plan Cultures: Coronavirus PCR 05/28/2020: Positive 05/28/2020 blood culture: no growth 05/28/2020 tracheal aspirate: Usual respiratory bobo 05/28/2020 urine culture: No growth 06/03/2020 urine culture: No growth 06/09/2020 tracheal aspirate Klebsiella pneumoniae 06/28/2020 sputum culture positive for Klebsiella 06/28/2020 blood cultures no growth today 06/29/2020 COV2 PCR positive A/P: 64-year-old female with hypertension, diastolic CHF, pulmonary hypertension, diabetes, obesity hypoventilation syndrome, recent COVID pneumonia, was admitted to the emergency room after she called EMS due to difficulty breathing. On the way to the hospital, patient developed cardiac arrest and was treated as per ACLS protocol: #New cardiac arrest on 07/01/2020 #New sepsis on 06/27/2020: Fever resolved. After asystolic cardiac arrest on 06/26/2028. ? Healthcare associated pneumonia #Bilateral pneumonia: Secondary to COVID-19. Completed 5 days of IV Remdesivir 06/02/2020. ? Healthcare associated pneumonia, repeat sputum Klebsiella. Chest x-ray worsening infiltrates. #Acute hypoxic respiratory failure: On mechanical ventilation. Minimal vent settings. #HF: EF 45-50% #Mild LFT elevation: likely from COVID-19. #AVANI: Improving. #Severe constipation: Status post manual disimpaction #Encephalopathy: ? Post cardiac arrest. #Severe anemia/rectal bleeding: Per GI medicine Recs: -Completed cefepime 7 days on 07/03/2020 -I requested SARS-CoV-2 PCR cycle threshold (Ct) value to Micro on Monday, the odds of positive culture/infectivity from COVID-[address] value >34 indicating no meaningful or transmissible disease. -Monitor mentation -Monitor bleeding Very poor prognosis Dr. Kyle valdes on Monday. Angela Savage MD [facility] ([facility] C: [phone] O: [phone] F: [phone] Subjective Date of service: 07/05/20 Principal diagnosis: Ac hypoxemic resp failure; COVID-19; pneumonia; CHF; Pulm HTN; OHS; DM II Interval history: Remains intubated on the ventilator, minimal ventilator setting no fever. Objective - Exam Narrative Exam: Physical Exam (reviewed in chart due to PPE conservation and minimize risk of transmission) Constitutional: limited due to PPE conservation strategy Head, Ears, Nose: limited due to PPE conservation strategy Eyes: limited due to PPE conservation strategy Neck: intubated limited due to PPE conservation strategy Oral: limited due to PPE conservation strategy Cardiovascular: limited due to PPE conservation strategy Respiratory: limited due to PPE conservation strategy GI: limited due to PPE conservation strategy Musculoskeletal: limited due to PPE conservation strategy Skin: limited due to PPE conservation strategy Hem/Lymphatic: limited due to PPE conservation strategy Psych: limited due to PPE conservation strategy Neurological: limited due to PPE conservation strategy - Constitutional Vitals: Vital Signs Temp Pulse Resp BP Pulse Ox 98.7 F 79 18 157/51 97 07/05/20 10:07/05/20 10:07/05/20 10:07/05/20 10:07/05/20 10:26 Temperature -Last 24 Hours Temperature 98.7 F Temperature 98.9 F Temperature 99.6 F Temperature 99.5 F Temperature 97.9 F - Labs CBC & Chem 7: 07/05/20 01:12 07/02/20 04:23 Labs: Abnormal lab results 06/26/20 07/04/20 07/04/20 Range/Units 09:27 11:54 18:00 RBC (3.65-5.03) M/mm3 Hgb (10.1-14.3) gm/dl Hct (30.3-42.9) % RDW (13.2-15.2) % Seg Neuts % (Manual) (40.0-70.0) % Lymphocytes % (Manual) (13.4-35.0) % Monocytes % (Manual) (0.0-7.3) % Seg Neutrophils # Man (1.8-7.7) K/mm3 Monocytes # (Manual) (0.0-0.8) K/mm3 POC Glucose 168 H 133 H (70-105) Crossmatch See Detail 07/05/20 07/05/20 07/05/20 Range/Units 00:07 01:12 02:30 RBC 2.35 L (3.65-5.03) M/mm3 Hgb 6.9 L (10.1-14.3) gm/dl Hct 21.1 L (30.3-42.9) % RDW 16.8 H (13.2-15.2) % Seg Neuts % (Manual) 74.0 H (40.0-70.0) % Lymphocytes % (Manual) 12.0 L (13.4-35.0) % Monocytes % (Manual) 9.0 H (0.0-7.3) % Seg Neutrophils # Man 8.0 H (1.8-7.7) K/mm3 Monocytes # (Manual) 1.0 H (0.0-0.8) K/mm3 POC Glucose 121 H (70-105) Crossmatch See Detail
[2020-07-05 14:48] LABS: ABG Base Excess -2.6 mmol/L (-2.0-3.0); ABG HCO3 23.4 mmol/L (20.0-26.0); ABG Oxygen Saturation 96.1 % (95.0-99.0); ABG PH 7.32 pH Units (7.350-7.450); ABG PO2 78.3 mm Hg (80.0-90.0)
[2020-07-05 14:50] LABS: ABG Methemoglobin 0.2 % (0.0-1.5)
--- NOTE | 2020-07-05 16:01 | Progress Note ---
Assessment and Plan Acute hypoxemic respiratory failure on MVS Coronavirus-19 infection. Bilateral pulmonary infiltrates, bilateral pneumonia plus likely element of Pulmonary edema. Bilateral pulmonary edema. Bilateral pleural effusions. History of congestive heart failure. Morbid obesity. History of pulmonary hypertension. History of hypertension. Diabetes. Obesity hypoventilation syndrome. Elevated serum inflammatory markers to include D-dimers and LDH levels. Hyperkalemia at presentation. Metabolic acidosis. Oropharyngeal dysphagia. (AMS is a rate limiting factor to safe extubation; tracheostomy may ultimately be required if persistent) - s/p PRBC transfusion - GI evaluation ongoing - continue Modafinil re: lethargy / somnolence - continue daytime PSV trials as tolerated - advance tube feeds to goal rate as tolerated (if OK with GI team) - continue Reglan - continue care as below otherwise; - Daily SAT and SBT assessment as tolerated - continue to wean supplemental oxygen for target O2 sat's > 90% acutely - VAP bundle addressed - continue lung protective strategies - continue bronchodilators with pulmonary hygiene per RT - wean per pulmonary driven protocols otherwise - continue accuchecks resumed with glycemic control per SSI (While critically ill target blood glucose of 140-180 mg/dL; avoid hypoglycemia) - sedation prn for target RASS 0 to -1 - continue to avoid benzodiazepine's, reduce the possibility of delirium - completed AB's per ID rec's - prn analgesia per CPOT score - Maintenance of sleep-wake cycle, avoid delirium - continue enteral nutritional support at goal rate as tolerated - G.I. & VTE prophylaxis with heparin & famotidine - PT/OT/ROM exercises - continue mobility protocols for pressure ulcer prophylaxis - Monitor hemodynamics closely - continue other care per attending / other consultants - discharge planning ongoing concurrently (LTAC evaluation is appropriate) .... Re-evaluate in am & prn CONDITION: CRITICAL PROGNOSIS: GUARDED CODE STATUS: FULL CODE The high probability of a clinically significant, sudden or life-threatening deterioration of the [respiratory, cardiovascular, GI & neurologic] system(s) required my full and direct attention, intervention and personal management. The aggregate critical care time was [32] minutes without overlap. Time includes spent on; [x] Data Review and interpretation [x] Patient assessment and monitoring of vital signs [x] Documentation [x] Medication orders and management Subjective Date of service: 07/05/20 Principal diagnosis: Ac hypoxemic resp failure; COVID-19; pneumonia; CHF; Pulm HTN; OHS; DM II Interval history: Patient is seen today for: Ac hypoxemic resp failure; Coronavirus-19 infection; pneumonia; Pulmonary edema; Bilateral pleural effusions; CHF; Morbid obesity; pulmonary hypertension; OHS; DM II Seen and examined at bedside; 24hour events reviewed; nursing and respiratory care staff consulted; no adverse overnight events reported to me; resting peacefully in bed; remains on MVS; some hematochezia noted and received blood transfusion; seen by Corwin; tolerating SBT's but at P-supp of 12 and AMS is persistent Objective Vital Signs - 12hr 07/05/20 07/05/20 07/05/20 04:01 05:00 06:00 Temperature Pulse Rate 78 76 77 Pulse Rate [ From Monitor] Respiratory 19 16 16 Rate Blood Pressure 172/58 159/57 164/56 O2 Sat by Pulse 100 100 100 Oximetry 07/05/20 07/05/20 07/05/20 06:36 07:00 08:00 Temperature Pulse Rate 76 84 83 Pulse Rate [ 74 From Monitor] Respiratory 19 18 Rate Blood Pressure 164/72 153/60 164/63 O2 Sat by Pulse 100 100 Oximetry 07/05/20 07/05/20 07/05/20 08:32 09:00 10:00 Temperature Pulse Rate 80 76 73 Pulse Rate [ From Monitor] Respiratory 17 21 Rate Blood Pressure 138/41 132/44 135/47 O2 Sat by Pulse 99 98 99 Oximetry 07/05/20 07/05/20 07/05/20 10:01 10:02 10:11 Temperature 98.9 F Pulse Rate 71 72 77 Pulse Rate [ From Monitor] Respiratory 18 Rate Blood Pressure 135/47 135/47 135/47 O2 Sat by Pulse 97 Oximetry 07/05/20 07/05/20 07/05/20 10:26 10:56 11:00 Temperature 98.7 F 98.6 F Pulse Rate 79 75 77 Pulse Rate [ From Monitor] Respiratory 18 19 23 Rate Blood Pressure 157/51 154/54 153/58 O2 Sat by Pulse 97 98 98 Oximetry 07/05/20 07/05/20 07/05/20 11:26 11:36 11:56 Temperature 98.9 F 98.5 F Pulse Rate 78 79 78 Pulse Rate [ From Monitor] Respiratory 18 25 H 20 Rate Blood Pressure 155/56 157/51 159/57 O2 Sat by Pulse 98 98 98 Oximetry 07/05/20 07/05/20 07/05/20 12:00 12:23 13:01 Temperature 98.5 F 98.6 F Pulse Rate 75 78 72 Pulse Rate [ 78 From Monitor] Respiratory 23 26 H 22 Rate Blood Pressure 152/56 143/49 137/56 O2 Sat by Pulse 98 98 98 Oximetry 07/05/20 07/05/20 07/05/20 13:49 14:00 15:16 Temperature Pulse Rate 77 80 75 Pulse Rate [ From Monitor] Respiratory 24 22 Rate Blood Pressure 151/65 159/64 137/54 O2 Sat by Pulse 98 98 Oximetry Constitutional: appears uncomfortable, other (elderly looking obese female on HFNC with mildly increased respiratory effort at rest on MVS) Eyes: non-icteric ENT: oropharynx dry, other (ETT 23-24 cm AYAN) Neck: supple, no lymphadenopathy, no JVD, other (large neck circumference) Effort: mildly labored Ascultation: Bilateral: diminished breath sounds, rhonchi (scant) Percussion: Bilateral: not dull Cardiovascular: regular rate and rhythm, other (S1,S2) Gastrointestinal: normoactive bowel sounds, soft, non-tender, non-distended Integumentary: normal Extremities: no cyanosis, no edema, pink and warm, pulses normal, no ischemia or petechiae Neurologic: pupils equal and round, unable to assess, other (lethargic to obtunded) Psychiatric: other (unable to assess re: AMS) CBC and BMP: 07/05/20 23:13 07/05/20 23:13 ABG, PT/INR, D-dimer: ABG ABG pH 7.32 pH Units (7.350-7.450) L 07/05/20 13:05 POC ABG pCO2 35.8 mmHg (32.0-48.0) 07/01/20 05:02 ABG pCO2 47.0 mm Hg 07/05/20 13:05 POC ABG pO2 90.8 mmHg (83-108) 07/01/20 05:02 ABG pO2 78.3 mm Hg (80.0-90.0) L 07/05/20 13:05 POC ABG HCO3 22.1 07/01/20 05:02 ABG O2 Saturation 96.1 % (95.0-99.0) 07/05/20 13:05 PT/INR, D-dimer PT 14.2 Sec. (12.2-14.9) 05/29/20 15:10 INR 1.08 (0.87-1.13) 05/29/20 15:10 D-Dimer 2310.15 ng/mlDDU (0-234) H 06/29/20 14:45 Abnormal lab findings: Abnormal Labs 05/28/20 05/28/20 05/28/20 13:29 13:47 13:47 WBC RBC Hgb Hct MCHC RDW 15.3 H Lymph % (Auto) [place] % (Auto) Eos % (Auto) Lymph # [place] # Seg Neutrophils % Seg Neuts % (Manual) Lymphocytes % (Manual) Seg Neutrophils # Seg Neutrophils # Man Lymphocytes # (Manual) Monocytes % (Manual) Eosinophils % (Manual) Monocytes # (Manual) Eosinophils # (Manual) D-Dimer Heparin Anti-Xa Level ABG pH POC ABG pCO2 POC ABG pO2 ABG pO2 ABG HCO3 ABG O2 Saturation ABG Base Excess ABG Hemoglobin ABG Oxyhemoglobin VBG pH Oxyhemoglobin Sodium Potassium 6.6 H* Chloride 109.2 H Carbon Dioxide 17 L BUN 29 H Creatinine 1.3 H Glucose 265 H POC Glucose 248 H Lactic Acid Calcium 8.1 L Ferritin AST 63 H Alkaline Phosphatase Lactate Dehydrogenase Total Creatine Kinase 301 H CK-MB (CK-2) 4.3 H C-Reactive Protein Total Protein 5.4 L Albumin 2.6 L Troponin T HDL Cholesterol Urine WBC (Auto) Urine Creatinine Urine Total Protein Coronavirus (PCR) Crossmatch 05/28/20 05/28/20 05/28/20 13:47 13:47 14:46 WBC RBC Hgb Hct MCHC RDW Lymph % (Auto) [place] % (Auto) Eos % (Auto) Lymph # [place] # Seg Neutrophils % Seg Neuts % (Manual) Lymphocytes % (Manual) Seg Neutrophils # Seg Neutrophils # Man Lymphocytes # (Manual) Monocytes % (Manual) Eosinophils % (Manual) Monocytes # (Manual) Eosinophils # (Manual) D-Dimer Heparin Anti-Xa Level ABG pH POC ABG pCO2 POC ABG pO2 ABG pO2 ABG HCO3 ABG O2 Saturation ABG Base Excess ABG Hemoglobin ABG Oxyhemoglobin VBG pH 7.152 L* Oxyhemoglobin Sodium Potassium 7.2 H* Chloride Carbon Dioxide BUN Creatinine Glucose POC Glucose Lactic Acid 3.40 H* Calcium Ferritin AST Alkaline Phosphatase Lactate Dehydrogenase Total Creatine Kinase CK-MB (CK-2) C-Reactive Protein Total Protein Albumin Troponin T HDL Cholesterol Urine WBC (Auto) Urine Creatinine Urine Total Protein Coronavirus (PCR) Crossmatch 05/28/20 05/28/20 05/28/20 15:33 15:33 15:51 WBC RBC Hgb Hct MCHC RDW Lymph % (Auto) [place] % (Auto) Eos % (Auto) Lymph # [place] # Seg Neutrophils % Seg Neuts % (Manual) Lymphocytes % (Manual) Seg Neutrophils # Seg Neutrophils # Man Lymphocytes # (Manual) Monocytes % (Manual) Eosinophils % (Manual) Monocytes # (Manual) Eosinophils # (Manual) D-Dimer 8780.43 H Heparin Anti-Xa Level ABG pH 7.284 L POC ABG pCO2 POC ABG pO2 ABG pO2 273.0 H ABG HCO3 ABG O2 Saturation 99.4 H ABG Base Excess -6.1 L ABG Hemoglobin 17.2 H ABG Oxyhemoglobin VBG pH Oxyhemoglobin Sodium Potassium Chloride Carbon Dioxide BUN Creatinine Glucose 152 H POC Glucose Lactic Acid Calcium Ferritin AST Alkaline Phosphatase Lactate Dehydrogenase 365 H Total Creatine Kinase CK-MB (CK-2) C-Reactive Protein Total Protein Albumin Troponin T HDL Cholesterol Urine WBC (Auto) Urine Creatinine Urine Total Protein Coronavirus (PCR) Crossmatch 05/28/20 05/28/20 05/28/20 16:30 20:41 23:20 WBC RBC Hgb Hct MCHC RDW Lymph % (Auto) [place] % (Auto) Eos % (Auto) Lymph # [place] # Seg Neutrophils % Seg Neuts % (Manual) Lymphocytes % (Manual) Seg Neutrophils # Seg Neutrophils # Man Lymphocytes # (Manual) Monocytes % (Manual) Eosinophils % (Manual) Monocytes # (Manual) Eosinophils # (Manual) D-Dimer Heparin Anti-Xa Level ABG pH POC ABG pCO2 POC ABG pO2 ABG pO2 ABG HCO3 ABG O2 Saturation ABG Base Excess ABG Hemoglobin ABG Oxyhemoglobin VBG pH Oxyhemoglobin Sodium Potassium Chloride Carbon Dioxide BUN Creatinine Glucose POC Glucose 225 H 224 H Lactic Acid Calcium Ferritin AST Alkaline Phosphatase Lactate Dehydrogenase Total Creatine Kinase CK-MB (CK-2) C-Reactive Protein Total Protein Albumin Troponin T HDL Cholesterol Urine WBC (Auto) 17.0 H Urine Creatinine Urine Total Protein Coronavirus (PCR) Crossmatch 05/28/20 05/29/20 05/29/20 Unknown 04:35 04:43 WBC RBC 3.48 L Hgb 9.8 L Hct 29.4 L MCHC RDW 16.0 H Lymph % (Auto) 7.4 L [place] % (Auto) Eos % (Auto) Lymph # 0.7 L [place] # Seg Neutrophils % 89.1 H Seg Neuts % (Manual) Lymphocytes % (Manual) Seg Neutrophils # 8.1 H Seg Neutrophils # Man Lymphocytes # (Manual) Monocytes % (Manual) Eosinophils % (Manual) Monocytes # (Manual) Eosinophils # (Manual) D-Dimer Heparin Anti-Xa Level ABG pH POC ABG pCO2 POC ABG pO2 ABG pO2 ABG HCO3 19.3 L ABG O2 Saturation ABG Base Excess -4.5 L ABG Hemoglobin 9.7 L ABG Oxyhemoglobin VBG pH Oxyhemoglobin Sodium Potassium Chloride Carbon Dioxide BUN Creatinine Glucose POC Glucose Lactic Acid Calcium Ferritin AST Alkaline Phosphatase Lactate Dehydrogenase Total Creatine Kinase CK-MB (CK-2) C-Reactive Protein Total Protein Albumin Troponin T HDL Cholesterol Urine WBC (Auto) Urine Creatinine Urine Total Protein Coronavirus (PCR) Positive A Crossmatch 05/29/20 05/29/20 05/29/20 04:43 15:10 17:17 WBC RBC Hgb 9.3 L Hct 28.7 L MCHC RDW Lymph % (Auto) [place] % (Auto) Eos % (Auto) Lymph # [place] # Seg Neutrophils % Seg Neuts % (Manual) Lymphocytes % (Manual) Seg Neutrophils # Seg Neutrophils # Man Lymphocytes # (Manual) Monocytes % (Manual) Eosinophils % (Manual) Monocytes # (Manual) Eosinophils # (Manual) D-Dimer Heparin Anti-Xa Level ABG pH POC ABG pCO2 POC ABG pO2 ABG pO2 ABG HCO3 ABG O2 Saturation ABG Base Excess ABG Hemoglobin ABG Oxyhemoglobin VBG pH Oxyhemoglobin Sodium Potassium Chloride 110.2 H Carbon Dioxide 18 L BUN 32 H Creatinine 1.4 H Glucose 180 H POC Glucose 147 H Lactic Acid Calcium Ferritin AST Alkaline Phosphatase Lactate Dehydrogenase Total Creatine Kinase CK-MB (CK-2) C-Reactive Protein Total Protein Albumin Troponin T HDL Cholesterol Urine WBC (Auto) Urine Creatinine Urine Total Protein Coronavirus (PCR) Crossmatch 05/30/20 05/30/20 05/30/20 00:08 00:12 04:15 WBC RBC Hgb Hct MCHC RDW Lymph % (Auto) [place] % (Auto) Eos % (Auto) Lymph # [place] # Seg Neutrophils % Seg Neuts % (Manual) Lymphocytes % (Manual) Seg Neutrophils # Seg Neutrophils # Man Lymphocytes # (Manual) Monocytes % (Manual) Eosinophils % (Manual) Monocytes # (Manual) Eosinophils # (Manual) D-Dimer Heparin Anti-Xa Level 0.71 H ABG pH 7.460 H POC ABG pCO2 POC ABG pO2 ABG pO2 106.0 H ABG HCO3 18.9 L ABG O2 Saturation ABG Base Excess -4.4 L ABG Hemoglobin 6.8 L ABG Oxyhemoglobin VBG pH Oxyhemoglobin Sodium Potassium Chloride Carbon Dioxide BUN Creatinine Glucose POC Glucose 195 H Lactic Acid Calcium Ferritin AST Alkaline Phosphatase Lactate Dehydrogenase Total Creatine Kinase CK-MB (CK-2) C-Reactive Protein Total Protein Albumin Troponin T HDL Cholesterol Urine WBC (Auto) Urine Creatinine Urine Total Protein Coronavirus (PCR) Crossmatch 05/30/20 05/30/20 05/30/20 06:07 08:37 12:33 WBC RBC Hgb Hct MCHC RDW Lymph % (Auto) [place] % (Auto) Eos % (Auto) Lymph # [place] # Seg Neutrophils % Seg Neuts % (Manual) Lymphocytes % (Manual) Seg Neutrophils # Seg Neutrophils # Man Lymphocytes # (Manual) Monocytes % (Manual) Eosinophils % (Manual) Monocytes # (Manual) Eosinophils # (Manual) D-Dimer Heparin Anti-Xa Level 0.85 H ABG pH POC ABG pCO2 POC ABG pO2 ABG pO2 ABG HCO3 ABG O2 Saturation ABG Base Excess ABG Hemoglobin ABG Oxyhemoglobin VBG pH Oxyhemoglobin Sodium Potassium Chloride Carbon Dioxide BUN Creatinine Glucose POC Glucose 182 H 187 H Lactic Acid Calcium Ferritin AST Alkaline Phosphatase Lactate Dehydrogenase Total Creatine Kinase CK-MB (CK-2) C-Reactive Protein Total Protein Albumin Troponin T HDL Cholesterol Urine WBC (Auto) Urine Creatinine Urine Total Protein Coronavirus (PCR) Crossmatch 05/30/20 05/30/20 05/30/20 15:58 17:57 23:36 WBC RBC Hgb Hct MCHC RDW Lymph % (Auto) [place] % (Auto) Eos % (Auto) Lymph # [place] # Seg Neutrophils % Seg Neuts % (Manual) Lymphocytes % (Manual) Seg Neutrophils # Seg Neutrophils # Man Lymphocytes # (Manual) Monocytes % (Manual) Eosinophils % (Manual) Monocytes # (Manual) Eosinophils # (Manual) D-Dimer Heparin Anti-Xa Level 1.03 H ABG pH POC ABG pCO2 POC ABG pO2 ABG pO2 ABG HCO3 ABG O2 Saturation ABG Base Excess ABG Hemoglobin ABG Oxyhemoglobin VBG pH Oxyhemoglobin Sodium Potassium Chloride Carbon Dioxide BUN Creatinine Glucose POC Glucose 208 H 185 H Lactic Acid Calcium Ferritin AST Alkaline Phosphatase Lactate Dehydrogenase Total Creatine Kinase CK-MB (CK-2) C-Reactive Protein Total Protein Albumin Troponin T HDL Cholesterol Urine WBC (Auto) Urine Creatinine Urine Total Protein Coronavirus (PCR) Crossmatch 05/31/20 05/31/20 05/31/20 02:16 03:55 06:16 WBC RBC Hgb 9.2 L Hct 27.5 L MCHC RDW Lymph % (Auto) [place] % (Auto) Eos % (Auto) Lymph # [place] # Seg Neutrophils % Seg Neuts % (Manual) Lymphocytes % (Manual) Seg Neutrophils # Seg Neutrophils # Man Lymphocytes # (Manual) Monocytes % (Manual) Eosinophils % (Manual) Monocytes # (Manual) Eosinophils # (Manual) D-Dimer Heparin Anti-Xa Level ABG pH POC ABG pCO2 POC ABG pO2 ABG pO2 94.7 H ABG HCO3 18.6 L ABG O2 Saturation ABG Base Excess -5.5 L ABG Hemoglobin 7.9 L ABG Oxyhemoglobin VBG pH Oxyhemoglobin Sodium Potassium Chloride Carbon Dioxide BUN Creatinine Glucose POC Glucose 160 H Lactic Acid Calcium Ferritin AST Alkaline Phosphatase Lactate Dehydrogenase Total Creatine Kinase CK-MB (CK-2) C-Reactive Protein Total Protein Albumin Troponin T HDL Cholesterol Urine WBC (Auto) Urine Creatinine Urine Total Protein Coronavirus (PCR) Crossmatch 05/31/20 05/31/20 05/31/20 12:20 13:03 18:13 WBC RBC Hgb Hct MCHC RDW Lymph % (Auto) [place] % (Auto) Eos % (Auto) Lymph # [place] # Seg Neutrophils % Seg Neuts % (Manual) Lymphocytes % (Manual) Seg Neutrophils # Seg Neutrophils # Man Lymphocytes # (Manual) Monocytes % (Manual) Eosinophils % (Manual) Monocytes # (Manual) Eosinophils # (Manual) D-Dimer Heparin Anti-Xa Level ABG pH POC ABG pCO2 POC ABG pO2 ABG pO2 ABG HCO3 ABG O2 Saturation ABG Base Excess ABG Hemoglobin ABG Oxyhemoglobin VBG pH Oxyhemoglobin Sodium Potassium Chloride Carbon Dioxide 18 L BUN 48 H Creatinine 1.6 H Glucose 115 H POC Glucose 128 H 159 H Lactic Acid Calcium 8.3 L Ferritin AST Alkaline Phosphatase Lactate Dehydrogenase Total Creatine Kinase CK-MB (CK-2) C-Reactive Protein Total Protein 5.4 L Albumin 2.4 L Troponin T HDL Cholesterol Urine WBC (Auto) Urine Creatinine Urine Total Protein Coronavirus (PCR) Crossmatch 05/31/20 06/01/20 06/01/20 23:51 04:00 05:48 WBC RBC Hgb Hct MCHC RDW Lymph % (Auto) [place] % (Auto) Eos % (Auto) Lymph # [place] # Seg Neutrophils % Seg Neuts % (Manual) Lymphocytes % (Manual) Seg Neutrophils # Seg Neutrophils # Man Lymphocytes # (Manual) Monocytes % (Manual) Eosinophils % (Manual) Monocytes # (Manual) Eosinophils # (Manual) D-Dimer Heparin Anti-Xa Level ABG pH POC ABG pCO2 POC ABG pO2 ABG pO2 109.8 H ABG HCO3 18.8 L ABG O2 Saturation ABG Base Excess -5.9 L ABG Hemoglobin 7.8 L ABG Oxyhemoglobin VBG pH Oxyhemoglobin Sodium Potassium Chloride Carbon Dioxide BUN Creatinine Glucose POC Glucose 171 H 133 H Lactic Acid Calcium Ferritin AST Alkaline Phosphatase Lactate Dehydrogenase Total Creatine Kinase CK-MB (CK-2) C-Reactive Protein Total Protein Albumin Troponin T HDL Cholesterol Urine WBC (Auto) Urine Creatinine Urine Total Protein Coronavirus (PCR) Crossmatch 06/01/20 06/01/20 06/02/20 12:28 17:29 00:08 WBC RBC Hgb Hct MCHC RDW Lymph % (Auto) [place] % (Auto) Eos % (Auto) Lymph # [place] # Seg Neutrophils % Seg Neuts % (Manual) Lymphocytes % (Manual) Seg Neutrophils # Seg Neutrophils # Man Lymphocytes # (Manual) Monocytes % (Manual) Eosinophils % (Manual) Monocytes # (Manual) Eosinophils # (Manual) D-Dimer Heparin Anti-Xa Level ABG pH POC ABG pCO2 POC ABG pO2 ABG pO2 ABG HCO3 ABG O2 Saturation ABG Base Excess ABG Hemoglobin ABG Oxyhemoglobin VBG pH Oxyhemoglobin Sodium Potassium Chloride Carbon Dioxide BUN Creatinine Glucose POC Glucose 199 H 209 H 162 H Lactic Acid Calcium Ferritin AST Alkaline Phosphatase Lactate Dehydrogenase Total Creatine Kinase CK-MB (CK-2) C-Reactive Protein Total Protein Albumin Troponin T HDL Cholesterol Urine WBC (Auto) Urine Creatinine Urine Total Protein Coronavirus (PCR) Crossmatch 06/02/20 06/02/20 06/02/20 04:20 04:20 04:44 WBC RBC Hgb 10.0 L Hct MCHC RDW Lymph % (Auto) [place] % (Auto) Eos % (Auto) Lymph # [place] # Seg Neutrophils % Seg Neuts % (Manual) Lymphocytes % (Manual) Seg Neutrophils # Seg Neutrophils # Man Lymphocytes # (Manual) Monocytes % (Manual) Eosinophils % (Manual) Monocytes # (Manual) Eosinophils # (Manual) D-Dimer Heparin Anti-Xa Level 0.10 L ABG pH POC ABG pCO2 POC ABG pO2 ABG pO2 150.6 H ABG HCO3 ABG O2 Saturation ABG Base Excess -4.1 L ABG Hemoglobin 11.8 L ABG Oxyhemoglobin VBG pH Oxyhemoglobin Sodium Potassium Chloride Carbon Dioxide BUN Creatinine Glucose POC Glucose Lactic Acid Calcium Ferritin AST Alkaline Phosphatase Lactate Dehydrogenase Total Creatine Kinase CK-MB (CK-2) C-Reactive Protein Total Protein Albumin Troponin T HDL Cholesterol Urine WBC (Auto) Urine Creatinine Urine Total Protein Coronavirus (PCR) Crossmatch 06/02/20 06/02/20 06/02/20 05:53 12:04 13:49 WBC RBC Hgb Hct MCHC RDW Lymph % (Auto) [place] % (Auto) Eos % (Auto) Lymph # [place] # Seg Neutrophils % Seg Neuts % (Manual) Lymphocytes % (Manual) Seg Neutrophils # Seg Neutrophils # Man Lymphocytes # (Manual) Monocytes % (Manual) Eosinophils % (Manual) Monocytes # (Manual) Eosinophils # (Manual) D-Dimer Heparin Anti-Xa Level 0.28 L ABG pH POC ABG pCO2 POC ABG pO2 ABG pO2 ABG HCO3 ABG O2 Saturation ABG Base Excess ABG Hemoglobin ABG Oxyhemoglobin VBG pH Oxyhemoglobin Sodium Potassium Chloride Carbon Dioxide BUN Creatinine Glucose POC Glucose 149 H 220 H Lactic Acid Calcium Ferritin AST Alkaline Phosphatase Lactate Dehydrogenase Total Creatine Kinase CK-MB (CK-2) C-Reactive Protein Total Protein Albumin Troponin T HDL Cholesterol Urine WBC (Auto) Urine Creatinine Urine Total Protein Coronavirus (PCR) Crossmatch 06/02/20 06/02/20 06/03/20 13:49 18:31 00:42 WBC RBC Hgb Hct MCHC RDW Lymph % (Auto) [place] % (Auto) Eos % (Auto) Lymph # [place] # Seg Neutrophils % Seg Neuts % (Manual) Lymphocytes % (Manual) Seg Neutrophils # Seg Neutrophils # Man Lymphocytes # (Manual) Monocytes % (Manual) Eosinophils % (Manual) Monocytes # (Manual) Eosinophils # (Manual) D-Dimer 769.68 H Heparin Anti-Xa Level ABG pH POC ABG pCO2 POC ABG pO2 ABG pO2 ABG HCO3 ABG O2 Saturation ABG Base Excess ABG Hemoglobin ABG Oxyhemoglobin VBG pH Oxyhemoglobin Sodium Potassium Chloride Carbon Dioxide BUN Creatinine Glucose POC Glucose 225 H 212 H Lactic Acid Calcium Ferritin AST Alkaline Phosphatase Lactate Dehydrogenase Total Creatine Kinase CK-MB (CK-2) C-Reactive Protein Total Protein Albumin Troponin T HDL Cholesterol Urine WBC (Auto) Urine Creatinine Urine Total Protein Coronavirus (PCR) Crossmatch 06/03/20 06/03/20 06/03/20 05:16 05:16 05:25 WBC 11.4 H RBC Hgb Hct MCHC RDW 16.4 H Lymph % (Auto) [place] % (Auto) Eos % (Auto) Lymph # [place] # Seg Neutrophils % Seg Neuts % (Manual) Lymphocytes % (Manual) Seg Neutrophils # Seg Neutrophils # Man Lymphocytes # (Manual) Monocytes % (Manual) Eosinophils % (Manual) Monocytes # (Manual) Eosinophils # (Manual) D-Dimer Heparin Anti-Xa Level ABG pH POC ABG pCO2 POC ABG pO2 ABG pO2 160.9 H ABG HCO3 19.4 L ABG O2 Saturation ABG Base Excess -4.9 L ABG Hemoglobin 7.0 L ABG Oxyhemoglobin VBG pH Oxyhemoglobin Sodium Potassium Chloride Carbon Dioxide 18 L BUN 65 H Creatinine 2.0 H Glucose 175 H POC Glucose Lactic Acid Calcium 8.0 L Ferritin AST Alkaline Phosphatase Lactate Dehydrogenase Total Creatine Kinase CK-MB (CK-2) C-Reactive Protein Total Protein 5.5 L Albumin 2.2 L Troponin T HDL Cholesterol Urine WBC (Auto) Urine Creatinine Urine Total Protein Coronavirus (PCR) Crossmatch 06/03/20 06/03/20 06/03/20 06:07 11:58 18:24 WBC RBC Hgb Hct MCHC RDW Lymph % (Auto) [place] % (Auto) Eos % (Auto) Lymph # [place] # Seg Neutrophils % Seg Neuts % (Manual) Lymphocytes % (Manual) Seg Neutrophils # Seg Neutrophils # Man Lymphocytes # (Manual) Monocytes % (Manual) Eosinophils % (Manual) Monocytes # (Manual) Eosinophils # (Manual) D-Dimer Heparin Anti-Xa Level ABG pH POC ABG pCO2 POC ABG pO2 ABG pO2 ABG HCO3 ABG O2 Saturation ABG Base Excess ABG Hemoglobin ABG Oxyhemoglobin VBG pH Oxyhemoglobin Sodium Potassium Chloride Carbon Dioxide BUN Creatinine Glucose POC Glucose 177 H 163 H 211 H Lactic Acid Calcium Ferritin AST Alkaline Phosphatase Lactate Dehydrogenase Total Creatine Kinase CK-MB (CK-2) C-Reactive Protein Total Protein Albumin Troponin T HDL Cholesterol Urine WBC (Auto) Urine Creatinine Urine Total Protein Coronavirus (PCR) Crossmatch 06/03/20 06/03/20 06/04/20 21:50 Unknown 00:26 WBC RBC Hgb Hct MCHC RDW Lymph % (Auto) [place] % (Auto) Eos % (Auto) Lymph # [place] # Seg Neutrophils % Seg Neuts % (Manual) Lymphocytes % (Manual) Seg Neutrophils # Seg Neutrophils # Man Lymphocytes # (Manual) Monocytes % (Manual) Eosinophils % (Manual) Monocytes # (Manual) Eosinophils # (Manual) D-Dimer Heparin Anti-Xa Level ABG pH POC ABG pCO2 POC ABG pO2 ABG pO2 ABG HCO3 ABG O2 Saturation ABG Base Excess ABG Hemoglobin ABG Oxyhemoglobin VBG pH Oxyhemoglobin Sodium 135 L Potassium Chloride Carbon Dioxide 18 L BUN Creatinine Glucose POC Glucose 241 H Lactic Acid Calcium Ferritin AST Alkaline Phosphatase Lactate Dehydrogenase Total Creatine Kinase CK-MB (CK-2) C-Reactive Protein Total Protein Albumin Troponin T HDL Cholesterol Urine WBC (Auto) 11.0 H Urine Creatinine Urine Total Protein Coronavirus (PCR) Crossmatch 06/04/20 06/04/20 06/04/20 03:35 04:19 04:19 WBC RBC 3.15 L Hgb 8.9 L Hct 26.8 L D MCHC RDW 15.9 H Lymph % (Auto) 6.0 L [place] % (Auto) Eos % (Auto) Lymph # 0.6 L [place] # Seg Neutrophils % 86.6 H Seg Neuts % (Manual) Lymphocytes % (Manual) Seg Neutrophils # 9.1 H Seg Neutrophils # Man Lymphocytes # (Manual) Monocytes % (Manual) Eosinophils % (Manual) Monocytes # (Manual) Eosinophils # (Manual) D-Dimer Heparin Anti-Xa Level ABG pH 7.331 L POC ABG pCO2 POC ABG pO2 ABG pO2 ABG HCO3 ABG O2 Saturation ABG Base Excess -4.7 L ABG Hemoglobin 11.0 L ABG Oxyhemoglobin VBG pH Oxyhemoglobin 93.9 L Sodium 136 L Potassium Chloride Carbon Dioxide 20 L BUN 73 H Creatinine 2.0 H Glucose 192 H POC Glucose Lactic Acid Calcium 8.0 L Ferritin AST Alkaline Phosphatase Lactate Dehydrogenase 271 H Total Creatine Kinase CK-MB (CK-2) C-Reactive Protein 2.20 H Total Protein 5.0 L Albumin 2.0 L Troponin T HDL Cholesterol Urine WBC (Auto) Urine Creatinine Urine Total Protein Coronavirus (PCR) Crossmatch 06/04/20 06/04/20 06/04/20 04:19 05:51 11:48 WBC RBC Hgb Hct MCHC RDW Lymph % (Auto) [place] % (Auto) Eos % (Auto) Lymph # [place] # Seg Neutrophils % Seg Neuts % (Manual) Lymphocytes % (Manual) Seg Neutrophils # Seg Neutrophils # Man Lymphocytes # (Manual) Monocytes % (Manual) Eosinophils % (Manual) Monocytes # (Manual) Eosinophils # (Manual) D-Dimer 414.52 H Heparin Anti-Xa Level ABG pH POC ABG pCO2 POC ABG pO2 ABG pO2 ABG HCO3 ABG O2 Saturation ABG Base Excess ABG Hemoglobin ABG Oxyhemoglobin VBG pH Oxyhemoglobin Sodium Potassium Chloride Carbon Dioxide BUN Creatinine Glucose POC Glucose 179 H 213 H Lactic Acid Calcium Ferritin AST Alkaline Phosphatase Lactate Dehydrogenase Total Creatine Kinase CK-MB (CK-2) C-Reactive Protein Total Protein Albumin Troponin T HDL Cholesterol Urine WBC (Auto) Urine Creatinine Urine Total Protein Coronavirus (PCR) Crossmatch 06/04/20 06/05/20 06/05/20 18:25 00:16 05:00 WBC RBC Hgb Hct MCHC RDW Lymph % (Auto) [place] % (Auto) Eos % (Auto) Lymph # [place] # Seg Neutrophils % Seg Neuts % (Manual) Lymphocytes % (Manual) Seg Neutrophils # Seg Neutrophils # Man Lymphocytes # (Manual) Monocytes % (Manual) Eosinophils % (Manual) Monocytes # (Manual) Eosinophils # (Manual) D-Dimer Heparin Anti-Xa Level ABG pH 7.286 L POC ABG pCO2 POC ABG pO2 ABG pO2 96.2 H ABG HCO3 ABG O2 Saturation ABG Base Excess -6.3 L ABG Hemoglobin 8.8 L ABG Oxyhemoglobin VBG pH Oxyhemoglobin 94.8 L Sodium Potassium Chloride Carbon Dioxide BUN Creatinine Glucose POC Glucose 238 H 183 H Lactic Acid Calcium Ferritin AST Alkaline Phosphatase Lactate Dehydrogenase Total Creatine Kinase CK-MB (CK-2) C-Reactive Protein Total Protein Albumin Troponin T HDL Cholesterol Urine WBC (Auto) Urine Creatinine Urine Total Protein Coronavirus (PCR) Crossmatch 06/05/20 06/05/20 06/05/20 05:39 07:25 07:25 WBC RBC 2.97 L Hgb 8.7 L Hct 25.7 L MCHC RDW 16.0 H Lymph % (Auto) 8.8 L [place] % (Auto) 13.3 H Eos % (Auto) Lymph # 0.8 L [place] # 1.3 H Seg Neutrophils % 77.3 H Seg Neuts % (Manual) Lymphocytes % (Manual) Seg Neutrophils # Seg Neutrophils # Man Lymphocytes # (Manual) Monocytes % (Manual) Eosinophils % (Manual) Monocytes # (Manual) Eosinophils # (Manual) D-Dimer Heparin Anti-Xa Level ABG pH POC ABG pCO2 POC ABG pO2 ABG pO2 ABG HCO3 ABG O2 Saturation ABG Base Excess ABG Hemoglobin ABG Oxyhemoglobin VBG pH Oxyhemoglobin Sodium 133 L Potassium Chloride Carbon Dioxide 17 L BUN 89 H Creatinine 2.8 H Glucose 176 H POC Glucose 149 H Lactic Acid Calcium 7.7 L Ferritin AST Alkaline Phosphatase Lactate Dehydrogenase Total Creatine Kinase CK-MB (CK-2) C-Reactive Protein Total Protein 4.2 L Albumin 1.9 L Troponin T HDL Cholesterol Urine WBC (Auto) Urine Creatinine Urine Total Protein Coronavirus (PCR) Crossmatch 06/05/20 06/05/20 06/05/20 07:25 12:05 15:41 WBC RBC Hgb Hct MCHC RDW Lymph % (Auto) [place] % (Auto) Eos % (Auto) Lymph # [place] # Seg Neutrophils % Seg Neuts % (Manual) Lymphocytes % (Manual) Seg Neutrophils # Seg Neutrophils # Man Lymphocytes # (Manual) Monocytes % (Manual) Eosinophils % (Manual) Monocytes # (Manual) Eosinophils # (Manual) D-Dimer Heparin Anti-Xa Level 0.76 H 0.81 H ABG pH POC ABG pCO2 POC ABG pO2 ABG pO2 ABG HCO3 ABG O2 Saturation ABG Base Excess ABG Hemoglobin ABG Oxyhemoglobin VBG pH Oxyhemoglobin Sodium Potassium Chloride Carbon Dioxide BUN Creatinine Glucose POC Glucose 198 H Lactic Acid Calcium Ferritin AST Alkaline Phosphatase Lactate Dehydrogenase Total Creatine Kinase CK-MB (CK-2) C-Reactive Protein Total Protein Albumin Troponin T HDL Cholesterol Urine WBC (Auto) Urine Creatinine Urine Total Protein Coronavirus (PCR) Crossmatch 06/05/20 06/05/20 06/06/20 18:08 23:25 04:00 WBC RBC Hgb Hct MCHC RDW Lymph % (Auto) [place] % (Auto) Eos % (Auto) Lymph # [place] # Seg Neutrophils % Seg Neuts % (Manual) Lymphocytes % (Manual) Seg Neutrophils # Seg Neutrophils # Man Lymphocytes # (Manual) Monocytes % (Manual) Eosinophils % (Manual) Monocytes # (Manual) Eosinophils # (Manual) D-Dimer Heparin Anti-Xa Level ABG pH POC ABG pCO2 POC ABG pO2 ABG pO2 ABG HCO3 ABG O2 Saturation ABG Base Excess ABG Hemoglobin ABG Oxyhemoglobin VBG pH Oxyhemoglobin Sodium Potassium Chloride Carbon Dioxide BUN Creatinine Glucose POC Glucose 223 H 169 H Lactic Acid Calcium Ferritin AST Alkaline Phosphatase Lactate Dehydrogenase Total Creatine Kinase CK-MB (CK-2) C-Reactive Protein Total Protein Albumin Troponin T HDL Cholesterol Urine WBC (Auto) 15.0 H Urine Creatinine Urine Total Protein Coronavirus (PCR) Crossmatch 06/06/20 06/06/20 06/06/20 04:00 05:33 05:38 WBC RBC 2.97 L Hgb 8.7 L Hct 26.8 L MCHC RDW 16.8 H Lymph % (Auto) [place] % (Auto) Eos % (Auto) Lymph # [place] # Seg Neutrophils % Seg Neuts % (Manual) Lymphocytes % (Manual) Seg Neutrophils # Seg Neutrophils # Man Lymphocytes # (Manual) Monocytes % (Manual) Eosinophils % (Manual) Monocytes # (Manual) Eosinophils # (Manual) D-Dimer Heparin Anti-Xa Level ABG pH POC ABG pCO2 POC ABG pO2 ABG pO2 ABG HCO3 ABG O2 Saturation ABG Base Excess ABG Hemoglobin ABG Oxyhemoglobin VBG pH Oxyhemoglobin Sodium Potassium Chloride Carbon Dioxide BUN Creatinine Glucose POC Glucose 186 H Lactic Acid Calcium Ferritin AST Alkaline Phosphatase Lactate Dehydrogenase Total Creatine Kinase CK-MB (CK-2) C-Reactive Protein Total Protein Albumin Troponin T HDL Cholesterol Urine WBC (Auto) Urine Creatinine 82.2 H Urine Total Protein 196 H Coronavirus (PCR) Crossmatch 06/06/20 06/06/20 06/06/20 05:38 12:25 17:03 WBC RBC Hgb Hct MCHC RDW Lymph % (Auto) [place] % (Auto) Eos % (Auto) Lymph # [place] # Seg Neutrophils % Seg Neuts % (Manual) Lymphocytes % (Manual) Seg Neutrophils # Seg Neutrophils # Man Lymphocytes # (Manual) Monocytes % (Manual) Eosinophils % (Manual) Monocytes # (Manual) Eosinophils # (Manual) D-Dimer Heparin Anti-Xa Level ABG pH POC ABG pCO2 POC ABG pO2 ABG pO2 ABG HCO3 ABG O2 Saturation ABG Base Excess ABG Hemoglobin ABG Oxyhemoglobin VBG pH Oxyhemoglobin Sodium 134 L Potassium 5.2 H Chloride Carbon Dioxide 18 L BUN 97 H Creatinine 2.5 H Glucose 193 H POC Glucose 239 H 252 H Lactic Acid Calcium 7.5 L Ferritin AST Alkaline Phosphatase Lactate Dehydrogenase Total Creatine Kinase CK-MB (CK-2) C-Reactive Protein Total Protein 4.1 L Albumin 1.9 L Troponin T HDL Cholesterol Urine WBC (Auto) Urine Creatinine Urine Total Protein Coronavirus (PCR) Crossmatch 06/07/20 06/07/20 06/07/20 00:16 01:49 04:00 WBC RBC 2.91 L Hgb 8.4 L Hct 25.0 L MCHC RDW 16.1 H Lymph % (Auto) 5.7 L [place] % (Auto) 10.5 H Eos % (Auto) Lymph # 0.6 L [place] # 1.1 H Seg Neutrophils % 83.6 H Seg Neuts % (Manual) Lymphocytes % (Manual) Seg Neutrophils # 9.1 H Seg Neutrophils # Man Lymphocytes # (Manual) Monocytes % (Manual) Eosinophils % (Manual) Monocytes # (Manual) Eosinophils # (Manual) D-Dimer Heparin Anti-Xa Level 0.26 L ABG pH POC ABG pCO2 POC ABG pO2 ABG pO2 ABG HCO3 ABG O2 Saturation ABG Base Excess ABG Hemoglobin ABG Oxyhemoglobin VBG pH Oxyhemoglobin Sodium Potassium Chloride Carbon Dioxide BUN Creatinine Glucose POC Glucose 173 H Lactic Acid Calcium Ferritin AST Alkaline Phosphatase Lactate Dehydrogenase Total Creatine Kinase CK-MB (CK-2) C-Reactive Protein Total Protein Albumin Troponin T HDL Cholesterol Urine WBC (Auto) Urine Creatinine Urine Total Protein Coronavirus (PCR) Crossmatch 06/07/20 06/07/20 06/07/20 04:00 04:54 05:51 WBC RBC Hgb Hct MCHC RDW Lymph % (Auto) [place] % (Auto) Eos % (Auto) Lymph # [place] # Seg Neutrophils % Seg Neuts % (Manual) Lymphocytes % (Manual) Seg Neutrophils # Seg Neutrophils # Man Lymphocytes # (Manual) Monocytes % (Manual) Eosinophils % (Manual) Monocytes # (Manual) Eosinophils # (Manual) D-Dimer Heparin Anti-Xa Level ABG pH 7.317 L POC ABG pCO2 POC ABG pO2 ABG pO2 71.4 L ABG HCO3 ABG O2 Saturation 94.3 L ABG Base Excess -4.8 L ABG Hemoglobin 7.1 L ABG Oxyhemoglobin VBG pH Oxyhemoglobin 92.2 L Sodium 133 L Potassium Chloride Carbon Dioxide 18 L BUN 100 H Creatinine 2.5 H Glucose 158 H POC Glucose 168 H Lactic Acid Calcium 7.6 L Ferritin AST Alkaline Phosphatase Lactate Dehydrogenase Total Creatine Kinase CK-MB (CK-2) C-Reactive Protein Total Protein 4.7 L Albumin 2.0 L Troponin T HDL Cholesterol Urine WBC (Auto) Urine Creatinine Urine Total Protein Coronavirus (PCR) Crossmatch 06/07/20 06/07/20 06/07/20 12:03 17:17 20:10 WBC RBC Hgb Hct MCHC RDW Lymph % (Auto) [place] % (Auto) Eos % (Auto) Lymph # [place] # Seg Neutrophils % Seg Neuts % (Manual) Lymphocytes % (Manual) Seg Neutrophils # Seg Neutrophils # Man Lymphocytes # (Manual) Monocytes % (Manual) Eosinophils % (Manual) Monocytes # (Manual) Eosinophils # (Manual) D-Dimer Heparin Anti-Xa Level 0.17 L ABG pH POC ABG pCO2 POC ABG pO2 ABG pO2 ABG HCO3 ABG O2 Saturation ABG Base Excess ABG Hemoglobin ABG Oxyhemoglobin VBG pH Oxyhemoglobin Sodium Potassium Chloride Carbon Dioxide BUN Creatinine Glucose POC Glucose 276 H 281 H Lactic Acid Calcium Ferritin AST Alkaline Phosphatase Lactate Dehydrogenase Total Creatine Kinase CK-MB (CK-2) C-Reactive Protein Total Protein Albumin Troponin T HDL Cholesterol Urine WBC (Auto) Urine Creatinine Urine Total Protein Coronavirus (PCR) Crossmatch 06/08/20 06/08/20 06/08/20 00:02 04:47 04:47 WBC 16.4 H RBC 3.07 L Hgb 8.6 L Hct 26.5 L MCHC RDW 16.3 H Lymph % (Auto) [place] % (Auto) Eos % (Auto) Lymph # [place] # Seg Neutrophils % Seg Neuts % (Manual) 90.0 H Lymphocytes % (Manual) 3.0 L Seg Neutrophils # Seg Neutrophils # Man 14.8 H Lymphocytes # (Manual) 0.5 L Monocytes % (Manual) Eosinophils % (Manual) Monocytes # (Manual) 1.1 H Eosinophils # (Manual) D-Dimer Heparin Anti-Xa Level ABG pH POC ABG pCO2 POC ABG pO2 ABG pO2 ABG HCO3 ABG O2 Saturation ABG Base Excess ABG Hemoglobin ABG Oxyhemoglobin VBG pH Oxyhemoglobin Sodium 129 L Potassium Chloride 95.6 L Carbon Dioxide 17 L BUN 106 H Creatinine 2.5 H Glucose 213 H POC Glucose 242 H Lactic Acid Calcium 7.6 L Ferritin AST Alkaline Phosphatase Lactate Dehydrogenase Total Creatine Kinase CK-MB (CK-2) C-Reactive Protein Total Protein 5.0 L Albumin 2.1 L Troponin T HDL Cholesterol Urine WBC (Auto) Urine Creatinine Urine Total Protein Coronavirus (PCR) Crossmatch 06/08/20 06/08/20 06/08/20 05:40 11:55 17:54 WBC RBC Hgb Hct MCHC RDW Lymph % (Auto) [place] % (Auto) Eos % (Auto) Lymph # [place] # Seg Neutrophils % Seg Neuts % (Manual) Lymphocytes % (Manual) Seg Neutrophils # Seg Neutrophils # Man Lymphocytes # (Manual) Monocytes % (Manual) Eosinophils % (Manual) Monocytes # (Manual) Eosinophils # (Manual) D-Dimer Heparin Anti-Xa Level ABG pH POC ABG pCO2 POC ABG pO2 ABG pO2 ABG HCO3 ABG O2 Saturation ABG Base Excess ABG Hemoglobin ABG Oxyhemoglobin VBG pH Oxyhemoglobin Sodium Potassium Chloride Carbon Dioxide BUN Creatinine Glucose POC Glucose 221 H 218 H 163 H Lactic Acid Calcium Ferritin AST Alkaline Phosphatase Lactate Dehydrogenase Total Creatine Kinase CK-MB (CK-2) C-Reactive Protein Total Protein Albumin Troponin T HDL Cholesterol Urine WBC (Auto) Urine Creatinine Urine Total Protein Coronavirus (PCR) Crossmatch 06/08/20 06/09/20 06/09/20 22:01 00:09 05:16 WBC 19.0 H RBC 3.35 L Hgb 9.2 L Hct 28.5 L MCHC RDW 16.3 H Lymph % (Auto) [place] % (Auto) Eos % (Auto) Lymph # [place] # Seg Neutrophils % Seg Neuts % (Manual) 85.0 H Lymphocytes % (Manual) 7.0 L Seg Neutrophils # Seg Neutrophils # Man 16.2 H Lymphocytes # (Manual) Monocytes % (Manual) Eosinophils % (Manual) Monocytes # (Manual) 1.3 H Eosinophils # (Manual) D-Dimer Heparin Anti-Xa Level ABG pH POC ABG pCO2 POC ABG pO2 ABG pO2 ABG HCO3 ABG O2 Saturation ABG Base Excess ABG Hemoglobin ABG Oxyhemoglobin VBG pH Oxyhemoglobin Sodium Potassium Chloride Carbon Dioxide BUN Creatinine Glucose POC Glucose 182 H 150 H Lactic Acid Calcium Ferritin AST Alkaline Phosphatase Lactate Dehydrogenase Total Creatine Kinase CK-MB (CK-2) C-Reactive Protein Total Protein Albumin Troponin T HDL Cholesterol Urine WBC (Auto) Urine Creatinine Urine Total Protein Coronavirus (PCR) Crossmatch 06/09/20 06/09/20 06/09/20 05:16 05:24 11:29 WBC RBC Hgb Hct MCHC RDW Lymph % (Auto) [place] % (Auto) Eos % (Auto) Lymph # [place] # Seg Neutrophils % Seg Neuts % (Manual) Lymphocytes % (Manual) Seg Neutrophils # Seg Neutrophils # Man Lymphocytes # (Manual) Monocytes % (Manual) Eosinophils % (Manual) Monocytes # (Manual) Eosinophils # (Manual) D-Dimer Heparin Anti-Xa Level ABG pH POC ABG pCO2 POC ABG pO2 ABG pO2 ABG HCO3 ABG O2 Saturation ABG Base Excess ABG Hemoglobin ABG Oxyhemoglobin VBG pH Oxyhemoglobin Sodium 133 L Potassium Chloride Carbon Dioxide 19 L BUN 109 H Creatinine 2.1 H Glucose 133 H POC Glucose 128 H 119 H Lactic Acid Calcium 7.7 L Ferritin AST Alkaline Phosphatase < 5 L Lactate Dehydrogenase Total Creatine Kinase CK-MB (CK-2) C-Reactive Protein Total Protein 4.6 L Albumin < 0.2 L Troponin T HDL Cholesterol Urine WBC (Auto) Urine Creatinine Urine Total Protein Coronavirus (PCR) Crossmatch 06/09/20 06/10/20 06/10/20 17:32 00:00 05:49 WBC RBC Hgb Hct MCHC RDW Lymph % (Auto) [place] % (Auto) Eos % (Auto) Lymph # [place] # Seg Neutrophils % Seg Neuts % (Manual) Lymphocytes % (Manual) Seg Neutrophils # Seg Neutrophils # Man Lymphocytes # (Manual) Monocytes % (Manual) Eosinophils % (Manual) Monocytes # (Manual) Eosinophils # (Manual) D-Dimer Heparin Anti-Xa Level 0.19 L ABG pH POC ABG pCO2 POC ABG pO2 ABG pO2 ABG HCO3 ABG O2 Saturation ABG Base Excess ABG Hemoglobin ABG Oxyhemoglobin VBG pH Oxyhemoglobin Sodium Potassium Chloride Carbon Dioxide BUN Creatinine Glucose POC Glucose 106 H 117 H Lactic Acid Calcium Ferritin AST Alkaline Phosphatase Lactate Dehydrogenase Total Creatine Kinase CK-MB (CK-2) C-Reactive Protein Total Protein Albumin Troponin T HDL Cholesterol Urine WBC (Auto) Urine Creatinine Urine Total Protein Coronavirus (PCR) Crossmatch 06/10/20 06/10/20 06/10/20 05:54 07:40 11:40 WBC RBC Hgb Hct MCHC RDW Lymph % (Auto) [place] % (Auto) Eos % (Auto) Lymph # [place] # Seg Neutrophils % Seg Neuts % (Manual) Lymphocytes % (Manual) Seg Neutrophils # Seg Neutrophils # Man Lymphocytes # (Manual) Monocytes % (Manual) Eosinophils % (Manual) Monocytes # (Manual) Eosinophils # (Manual) D-Dimer Heparin Anti-Xa Level ABG pH POC ABG pCO2 POC ABG pO2 ABG pO2 ABG HCO3 ABG O2 Saturation ABG Base Excess ABG Hemoglobin ABG Oxyhemoglobin VBG pH Oxyhemoglobin Sodium 146 H D Potassium Chloride Carbon Dioxide 20 L BUN 99 H Creatinine 1.9 H Glucose 121 H POC Glucose 127 H 138 H Lactic Acid Calcium 8.2 L Ferritin AST Alkaline Phosphatase Lactate Dehydrogenase Total Creatine Kinase CK-MB (CK-2) C-Reactive Protein Total Protein Albumin Troponin T HDL Cholesterol Urine WBC (Auto) Urine Creatinine Urine Total Protein Coronavirus (PCR) Crossmatch 06/10/20 06/10/20 06/10/20 14:44 17:31 23:22 WBC RBC Hgb Hct MCHC RDW Lymph % (Auto) [place] % (Auto) Eos % (Auto) Lymph # [place] # Seg Neutrophils % Seg Neuts % (Manual) Lymphocytes % (Manual) Seg Neutrophils # Seg Neutrophils # Man Lymphocytes # (Manual) Monocytes % (Manual) Eosinophils % (Manual) Monocytes # (Manual) Eosinophils # (Manual) D-Dimer Heparin Anti-Xa Level 0.17 L ABG pH POC ABG pCO2 POC ABG pO2 ABG pO2 ABG HCO3 ABG O2 Saturation ABG Base Excess ABG Hemoglobin ABG Oxyhemoglobin VBG pH Oxyhemoglobin Sodium Potassium Chloride Carbon Dioxide BUN Creatinine Glucose POC Glucose 128 H 114 H Lactic Acid Calcium Ferritin AST Alkaline Phosphatase Lactate Dehydrogenase Total Creatine Kinase CK-MB (CK-2) C-Reactive Protein Total Protein Albumin Troponin T HDL Cholesterol Urine WBC (Auto) Urine Creatinine Urine Total Protein Coronavirus (PCR) Crossmatch 06/11/20 06/11/20 06/11/20 00:22 03:45 03:45 WBC 14.6 H RBC 2.77 L Hgb 7.9 L Hct 24.3 L MCHC RDW 16.8 H Lymph % (Auto) 6.6 L [place] % (Auto) 8.5 H Eos % (Auto) Lymph # 1.0 L [place] # 1.2 H Seg Neutrophils % 82.9 H Seg Neuts % (Manual) Lymphocytes % (Manual) Seg Neutrophils # 12.1 H Seg Neutrophils # Man Lymphocytes # (Manual) Monocytes % (Manual) Eosinophils % (Manual) Monocytes # (Manual) Eosinophils # (Manual) D-Dimer Heparin Anti-Xa Level 0.24 L ABG pH POC ABG pCO2 POC ABG pO2 ABG pO2 ABG HCO3 ABG O2 Saturation ABG Base Excess ABG Hemoglobin ABG Oxyhemoglobin VBG pH Oxyhemoglobin Sodium Potassium Chloride Carbon Dioxide 20 L BUN 88 H Creatinine 1.5 H Glucose 111 H POC Glucose Lactic Acid Calcium 8.2 L Ferritin AST Alkaline Phosphatase Lactate Dehydrogenase Total Creatine Kinase CK-MB (CK-2) C-Reactive Protein Total Protein Albumin Troponin T HDL Cholesterol Urine WBC (Auto) Urine Creatinine Urine Total Protein Coronavirus (PCR) Crossmatch 06/11/20 06/11/20 06/11/20 06:03 10:22 11:11 WBC RBC Hgb Hct MCHC RDW Lymph % (Auto) [place] % (Auto) Eos % (Auto) Lymph # [place] # Seg Neutrophils % Seg Neuts % (Manual) Lymphocytes % (Manual) Seg Neutrophils # Seg Neutrophils # Man Lymphocytes # (Manual) Monocytes % (Manual) Eosinophils % (Manual) Monocytes # (Manual) Eosinophils # (Manual) D-Dimer Heparin Anti-Xa Level 0.26 L ABG pH POC ABG pCO2 POC ABG pO2 ABG pO2 ABG HCO3 ABG O2 Saturation ABG Base Excess ABG Hemoglobin 9.6 L ABG Oxyhemoglobin VBG pH Oxyhemoglobin Sodium Potassium Chloride Carbon Dioxide BUN Creatinine Glucose POC Glucose 114 H Lactic Acid Calcium Ferritin AST Alkaline Phosphatase Lactate Dehydrogenase Total Creatine Kinase CK-MB (CK-2) C-Reactive Protein Total Protein Albumin Troponin T HDL Cholesterol Urine WBC (Auto) Urine Creatinine Urine Total Protein Coronavirus (PCR) Crossmatch 06/11/20 06/11/20 06/12/20 12:24 17:24 00:21 WBC RBC Hgb Hct MCHC RDW Lymph % (Auto) [place] % (Auto) Eos % (Auto) Lymph # [place] # Seg Neutrophils % Seg Neuts % (Manual) Lymphocytes % (Manual) Seg Neutrophils # Seg Neutrophils # Man Lymphocytes # (Manual) Monocytes % (Manual) Eosinophils % (Manual) Monocytes # (Manual) Eosinophils # (Manual) D-Dimer Heparin Anti-Xa Level ABG pH POC ABG pCO2 POC ABG pO2 ABG pO2 ABG HCO3 ABG O2 Saturation ABG Base Excess ABG Hemoglobin ABG Oxyhemoglobin VBG pH Oxyhemoglobin Sodium Potassium Chloride Carbon Dioxide BUN Creatinine Glucose POC Glucose 119 H 126 H 117 H Lactic Acid Calcium Ferritin AST Alkaline Phosphatase Lactate Dehydrogenase Total Creatine Kinase CK-MB (CK-2) C-Reactive Protein Total Protein Albumin Troponin T HDL Cholesterol Urine WBC (Auto) Urine Creatinine Urine Total Protein Coronavirus (PCR) Crossmatch 06/12/20 06/12/20 06/12/20 02:46 02:46 05:46 WBC 13.2 H RBC 2.83 L Hgb 8.3 L Hct 24.3 L MCHC RDW 16.6 H Lymph % (Auto) 6.2 L [place] % (Auto) 9.5 H Eos % (Auto) Lymph # 0.8 L [place] # 1.3 H Seg Neutrophils % 81.9 H Seg Neuts % (Manual) Lymphocytes % (Manual) Seg Neutrophils # 10.9 H Seg Neutrophils # Man Lymphocytes # (Manual) Monocytes % (Manual) Eosinophils % (Manual) Monocytes # (Manual) Eosinophils # (Manual) D-Dimer Heparin Anti-Xa Level ABG pH POC ABG pCO2 POC ABG pO2 ABG pO2 ABG HCO3 ABG O2 Saturation ABG Base Excess ABG Hemoglobin ABG Oxyhemoglobin VBG pH Oxyhemoglobin Sodium Potassium 3.5 L Chloride Carbon Dioxide BUN 77 H Creatinine 1.3 H Glucose POC Glucose 132 H Lactic Acid Calcium 8.3 L Ferritin AST Alkaline Phosphatase Lactate Dehydrogenase Total Creatine Kinase CK-MB (CK-2) C-Reactive Protein Total Protein Albumin Troponin T HDL Cholesterol Urine WBC (Auto) Urine Creatinine Urine Total Protein Coronavirus (PCR) Crossmatch 06/12/20 06/12/20 06/12/20 09:20 12:16 17:48 WBC RBC Hgb Hct MCHC RDW Lymph % (Auto) [place] % (Auto) Eos % (Auto) Lymph # [place] # Seg Neutrophils % Seg Neuts % (Manual) Lymphocytes % (Manual) Seg Neutrophils # Seg Neutrophils # Man Lymphocytes # (Manual) Monocytes % (Manual) Eosinophils % (Manual) Monocytes # (Manual) Eosinophils # (Manual) D-Dimer Heparin Anti-Xa Level ABG pH POC ABG pCO2 POC ABG pO2 ABG pO2 91.1 H ABG HCO3 ABG O2 Saturation ABG Base Excess ABG Hemoglobin ABG Oxyhemoglobin VBG pH Oxyhemoglobin 94.8 L Sodium Potassium Chloride Carbon Dioxide BUN Creatinine Glucose POC Glucose 167 H 182 H Lactic Acid Calcium Ferritin AST Alkaline Phosphatase Lactate Dehydrogenase Total Creatine Kinase CK-MB (CK-2) C-Reactive Protein Total Protein Albumin Troponin T HDL Cholesterol Urine WBC (Auto) Urine Creatinine Urine Total Protein Coronavirus (PCR) Crossmatch 06/13/20 06/13/20 06/13/20 00:08 05:37 09:09 WBC RBC Hgb Hct MCHC RDW Lymph % (Auto) [place] % (Auto) Eos % (Auto) Lymph # [place] # Seg Neutrophils % Seg Neuts % (Manual) Lymphocytes % (Manual) Seg Neutrophils # Seg Neutrophils # Man Lymphocytes # (Manual) Monocytes % (Manual) Eosinophils % (Manual) Monocytes # (Manual) Eosinophils # (Manual) D-Dimer Heparin Anti-Xa Level 0.86 H ABG pH POC ABG pCO2 POC ABG pO2 ABG pO2 ABG HCO3 ABG O2 Saturation ABG Base Excess ABG Hemoglobin ABG Oxyhemoglobin VBG pH Oxyhemoglobin Sodium Potassium Chloride Carbon Dioxide BUN Creatinine Glucose POC Glucose 142 H 119 H Lactic Acid Calcium Ferritin AST Alkaline Phosphatase Lactate Dehydrogenase Total Creatine Kinase CK-MB (CK-2) C-Reactive Protein Total Protein Albumin Troponin T HDL Cholesterol Urine WBC (Auto) Urine Creatinine Urine Total Protein Coronavirus (PCR) Crossmatch 06/13/20 06/13/20 06/13/20 12:28 17:55 21:17 WBC RBC Hgb Hct MCHC RDW Lymph % (Auto) [place] % (Auto) Eos % (Auto) Lymph # [place] # Seg Neutrophils % Seg Neuts % (Manual) Lymphocytes % (Manual) Seg Neutrophils # Seg Neutrophils # Man Lymphocytes # (Manual) Monocytes % (Manual) Eosinophils % (Manual) Monocytes # (Manual) Eosinophils # (Manual) D-Dimer Heparin Anti-Xa Level ABG pH POC ABG pCO2 POC ABG pO2 ABG pO2 ABG HCO3 ABG O2 Saturation ABG Base Excess ABG Hemoglobin ABG Oxyhemoglobin VBG pH Oxyhemoglobin Sodium Potassium Chloride Carbon Dioxide BUN 61 H Creatinine Glucose 131 H POC Glucose 165 H 174 H Lactic Acid Calcium Ferritin AST Alkaline Phosphatase Lactate Dehydrogenase Total Creatine Kinase CK-MB (CK-2) C-Reactive Protein Total Protein Albumin Troponin T HDL Cholesterol Urine WBC (Auto) Urine Creatinine Urine Total Protein Coronavirus (PCR) Crossmatch 06/13/20 06/13/20 06/14/20 21:17 23:50 05:34 WBC RBC Hgb Hct MCHC RDW Lymph % (Auto) [place] % (Auto) Eos % (Auto) Lymph # [place] # Seg Neutrophils % Seg Neuts % (Manual) Lymphocytes % (Manual) Seg Neutrophils # Seg Neutrophils # Man Lymphocytes # (Manual) Monocytes % (Manual) Eosinophils % (Manual) Monocytes # (Manual) Eosinophils # (Manual) D-Dimer Heparin Anti-Xa Level 0.72 H ABG pH POC ABG pCO2 POC ABG pO2 ABG pO2 ABG HCO3 ABG O2 Saturation ABG Base Excess ABG Hemoglobin ABG Oxyhemoglobin VBG pH Oxyhemoglobin Sodium 146 H Potassium Chloride 107.6 H Carbon Dioxide BUN 61 H Creatinine 1.3 H Glucose 135 H POC Glucose 146 H Lactic Acid Calcium Ferritin AST Alkaline Phosphatase Lactate Dehydrogenase Total Creatine Kinase CK-MB (CK-2) C-Reactive Protein Total Protein Albumin Troponin T HDL Cholesterol Urine WBC (Auto) Urine Creatinine Urine Total Protein Coronavirus (PCR) Crossmatch 06/14/20 06/14/20 06/14/20 06:11 09:28 11:30 WBC RBC Hgb Hct MCHC RDW Lymph % (Auto) [place] % (Auto) Eos % (Auto) Lymph # [place] # Seg Neutrophils % Seg Neuts % (Manual) Lymphocytes % (Manual) Seg Neutrophils # Seg Neutrophils # Man Lymphocytes # (Manual) Monocytes % (Manual) Eosinophils % (Manual) Monocytes # (Manual) Eosinophils # (Manual) D-Dimer Heparin Anti-Xa Level 0.90 H ABG pH POC ABG pCO2 POC ABG pO2 ABG pO2 ABG HCO3 ABG O2 Saturation ABG Base Excess ABG Hemoglobin ABG Oxyhemoglobin VBG pH Oxyhemoglobin Sodium Potassium Chloride Carbon Dioxide BUN Creatinine Glucose POC Glucose 141 H 186 H Lactic Acid Calcium Ferritin AST Alkaline Phosphatase Lactate Dehydrogenase Total Creatine Kinase CK-MB (CK-2) C-Reactive Protein Total Protein Albumin Troponin T HDL Cholesterol Urine WBC (Auto) Urine Creatinine Urine Total Protein Coronavirus (PCR) Crossmatch 06/14/20 06/14/20 06/14/20 16:07 18:16 23:51 WBC RBC Hgb Hct MCHC RDW Lymph % (Auto) [place] % (Auto) Eos % (Auto) Lymph # [place] # Seg Neutrophils % Seg Neuts % (Manual) Lymphocytes % (Manual) Seg Neutrophils # Seg Neutrophils # Man Lymphocytes # (Manual) Monocytes % (Manual) Eosinophils % (Manual) Monocytes # (Manual) Eosinophils # (Manual) D-Dimer Heparin Anti-Xa Level 0.82 H ABG pH POC ABG pCO2 POC ABG pO2 ABG pO2 ABG HCO3 ABG O2 Saturation ABG Base Excess ABG Hemoglobin ABG Oxyhemoglobin VBG pH Oxyhemoglobin Sodium Potassium Chloride Carbon Dioxide BUN Creatinine Glucose POC Glucose 106 H 154 H Lactic Acid Calcium Ferritin AST Alkaline Phosphatase Lactate Dehydrogenase Total Creatine Kinase CK-MB (CK-2) C-Reactive Protein Total Protein Albumin Troponin T HDL Cholesterol Urine WBC (Auto) Urine Creatinine Urine Total Protein Coronavirus (PCR) Crossmatch 06/15/20 06/15/20 06/15/20 04:24 04:24 05:59 WBC RBC 2.75 L Hgb 7.9 L Hct 24.0 L MCHC RDW 16.4 H Lymph % (Auto) 12.9 L [place] % (Auto) 8.7 H Eos % (Auto) 4.6 H Lymph # 1.1 L [place] # Seg Neutrophils % 73.2 H Seg Neuts % (Manual) Lymphocytes % (Manual) Seg Neutrophils # Seg Neutrophils # Man Lymphocytes # (Manual) Monocytes % (Manual) Eosinophils % (Manual) Monocytes # (Manual) Eosinophils # (Manual) D-Dimer Heparin Anti-Xa Level ABG pH POC ABG pCO2 POC ABG pO2 ABG pO2 ABG HCO3 ABG O2 Saturation ABG Base Excess ABG Hemoglobin ABG Oxyhemoglobin VBG pH Oxyhemoglobin Sodium Potassium 3.4 L Chloride Carbon Dioxide BUN 55 H Creatinine 1.3 H Glucose 142 H POC Glucose 131 H Lactic Acid Calcium Ferritin AST Alkaline Phosphatase Lactate Dehydrogenase Total Creatine Kinase CK-MB (CK-2) C-Reactive Protein Total Protein Albumin Troponin T HDL Cholesterol Urine WBC (Auto) Urine Creatinine Urine Total Protein Coronavirus (PCR) Crossmatch 06/15/20 06/15/20 06/16/20 12:33 17:07 00:22 WBC RBC Hgb Hct MCHC RDW Lymph % (Auto) [place] % (Auto) Eos % (Auto) Lymph # [place] # Seg Neutrophils % Seg Neuts % (Manual) Lymphocytes % (Manual) Seg Neutrophils # Seg Neutrophils # Man Lymphocytes # (Manual) Monocytes % (Manual) Eosinophils % (Manual) Monocytes # (Manual) Eosinophils # (Manual) D-Dimer Heparin Anti-Xa Level 0.21 L ABG pH POC ABG pCO2 POC ABG pO2 ABG pO2 ABG HCO3 ABG O2 Saturation ABG Base Excess ABG Hemoglobin ABG Oxyhemoglobin VBG pH Oxyhemoglobin Sodium Potassium Chloride Carbon Dioxide BUN Creatinine Glucose POC Glucose 180 H 185 H Lactic Acid Calcium Ferritin AST Alkaline Phosphatase Lactate Dehydrogenase Total Creatine Kinase CK-MB (CK-2) C-Reactive Protein Total Protein Albumin Troponin T HDL Cholesterol Urine WBC (Auto) Urine Creatinine Urine Total Protein Coronavirus (PCR) Crossmatch 06/16/20 06/16/20 06/16/20 01:45 08:06 09:15 WBC RBC Hgb Hct MCHC RDW Lymph % (Auto) [place] % (Auto) Eos % (Auto) Lymph # [place] # Seg Neutrophils % Seg Neuts % (Manual) Lymphocytes % (Manual) Seg Neutrophils # Seg Neutrophils # Man Lymphocytes # (Manual) Monocytes % (Manual) Eosinophils % (Manual) Monocytes # (Manual) Eosinophils # (Manual) D-Dimer Heparin Anti-Xa Level ABG pH POC ABG pCO2 POC ABG pO2 ABG pO2 ABG HCO3 ABG O2 Saturation ABG Base Excess ABG Hemoglobin ABG Oxyhemoglobin VBG pH Oxyhemoglobin Sodium Potassium Chloride Carbon Dioxide BUN 49 H Creatinine Glucose 154 H POC Glucose 140 H 171 H Lactic Acid Calcium Ferritin AST Alkaline Phosphatase Lactate Dehydrogenase Total Creatine Kinase CK-MB (CK-2) C-Reactive Protein Total Protein Albumin Troponin T HDL Cholesterol Urine WBC (Auto) Urine Creatinine Urine Total Protein Coronavirus (PCR) Crossmatch 06/16/20 06/16/20 06/16/20 10:46 12:33 17:54 WBC RBC Hgb Hct MCHC RDW Lymph % (Auto) [place] % (Auto) Eos % (Auto) Lymph # [place] # Seg Neutrophils % Seg Neuts % (Manual) Lymphocytes % (Manual) Seg Neutrophils # Seg Neutrophils # Man Lymphocytes # (Manual) Monocytes % (Manual) Eosinophils % (Manual) Monocytes # (Manual) Eosinophils # (Manual) D-Dimer Heparin Anti-Xa Level 0.12 L ABG pH POC ABG pCO2 POC ABG pO2 ABG pO2 ABG HCO3 ABG O2 Saturation ABG Base Excess ABG Hemoglobin ABG Oxyhemoglobin VBG pH Oxyhemoglobin Sodium Potassium Chloride Carbon Dioxide BUN Creatinine Glucose POC Glucose 166 H 151 H Lactic Acid Calcium Ferritin AST Alkaline Phosphatase Lactate Dehydrogenase Total Creatine Kinase CK-MB (CK-2) C-Reactive Protein Total Protein Albumin Troponin T HDL Cholesterol Urine WBC (Auto) Urine Creatinine Urine Total Protein Coronavirus (PCR) Crossmatch 06/16/20 06/17/20 06/17/20 18:47 00:00 02:19 WBC RBC Hgb Hct MCHC RDW Lymph % (Auto) [place] % (Auto) Eos % (Auto) Lymph # [place] # Seg Neutrophils % Seg Neuts % (Manual) Lymphocytes % (Manual) Seg Neutrophils # Seg Neutrophils # Man Lymphocytes # (Manual) Monocytes % (Manual) Eosinophils % (Manual) Monocytes # (Manual) Eosinophils # (Manual) D-Dimer Heparin Anti-Xa Level 0.73 H 0.77 H ABG pH POC ABG pCO2 POC ABG pO2 ABG pO2 ABG HCO3 ABG O2 Saturation ABG Base Excess ABG Hemoglobin ABG Oxyhemoglobin VBG pH Oxyhemoglobin Sodium Potassium Chloride Carbon Dioxide BUN Creatinine Glucose POC Glucose 139 H Lactic Acid Calcium Ferritin AST Alkaline Phosphatase Lactate Dehydrogenase Total Creatine Kinase CK-MB (CK-2) C-Reactive Protein Total Protein Albumin Troponin T HDL Cholesterol Urine WBC (Auto) Urine Creatinine Urine Total Protein Coronavirus (PCR) Crossmatch 06/17/20 06/17/20 06/17/20 06:07 11:42 16:43 WBC RBC Hgb Hct MCHC RDW Lymph % (Auto) [place] % (Auto) Eos % (Auto) Lymph # [place] # Seg Neutrophils % Seg Neuts % (Manual) Lymphocytes % (Manual) Seg Neutrophils # Seg Neutrophils # Man Lymphocytes # (Manual) Monocytes % (Manual) Eosinophils % (Manual) Monocytes # (Manual) Eosinophils # (Manual) D-Dimer Heparin Anti-Xa Level 0.73 H ABG pH POC ABG pCO2 POC ABG pO2 ABG pO2 ABG HCO3 ABG O2 Saturation ABG Base Excess ABG Hemoglobin ABG Oxyhemoglobin VBG pH Oxyhemoglobin Sodium Potassium Chloride Carbon Dioxide BUN Creatinine Glucose POC Glucose 169 H 169 H Lactic Acid Calcium Ferritin AST Alkaline Phosphatase Lactate Dehydrogenase Total Creatine Kinase CK-MB (CK-2) C-Reactive Protein Total Protein Albumin Troponin T HDL Cholesterol Urine WBC (Auto) Urine Creatinine Urine Total Protein Coronavirus (PCR) Crossmatch 06/17/20 06/17/20 06/17/20 18:18 23:08 23:16 WBC RBC Hgb Hct MCHC RDW Lymph % (Auto) [place] % (Auto) Eos % (Auto) Lymph # [place] # Seg Neutrophils % Seg Neuts % (Manual) Lymphocytes % (Manual) Seg Neutrophils # Seg Neutrophils # Man Lymphocytes # (Manual) Monocytes % (Manual) Eosinophils % (Manual) Monocytes # (Manual) Eosinophils # (Manual) D-Dimer Heparin Anti-Xa Level 0.71 H ABG pH POC ABG pCO2 POC ABG pO2 ABG pO2 ABG HCO3 ABG O2 Saturation ABG Base Excess ABG Hemoglobin ABG Oxyhemoglobin VBG pH Oxyhemoglobin Sodium Potassium Chloride Carbon Dioxide BUN Creatinine Glucose POC Glucose 159 H 134 H Lactic Acid Calcium Ferritin AST Alkaline Phosphatase Lactate Dehydrogenase Total Creatine Kinase CK-MB (CK-2) C-Reactive Protein Total Protein Albumin Troponin T HDL Cholesterol Urine WBC (Auto) Urine Creatinine Urine Total Protein Coronavirus (PCR) Crossmatch 06/18/20 06/18/20 06/18/20 04:42 05:52 11:50 WBC RBC Hgb Hct MCHC RDW Lymph % (Auto) [place] % (Auto) Eos % (Auto) Lymph # [place] # Seg Neutrophils % Seg Neuts % (Manual) Lymphocytes % (Manual) Seg Neutrophils # Seg Neutrophils # Man Lymphocytes # (Manual) Monocytes % (Manual) Eosinophils % (Manual) Monocytes # (Manual) Eosinophils # (Manual) D-Dimer Heparin Anti-Xa Level ABG pH POC ABG pCO2 POC ABG pO2 ABG pO2 ABG HCO3 ABG O2 Saturation ABG Base Excess ABG Hemoglobin ABG Oxyhemoglobin VBG pH Oxyhemoglobin Sodium Potassium Chloride Carbon Dioxide BUN 44 H Creatinine Glucose 115 H POC Glucose 171 H 167 H Lactic Acid Calcium Ferritin AST Alkaline Phosphatase Lactate Dehydrogenase Total Creatine Kinase CK-MB (CK-2) C-Reactive Protein Total Protein Albumin Troponin T HDL Cholesterol Urine WBC (Auto) Urine Creatinine Urine Total Protein Coronavirus (PCR) Crossmatch 06/18/20 06/19/20 06/19/20 23:46 05:48 07:52 WBC RBC Hgb Hct MCHC RDW Lymph % (Auto) [place] % (Auto) Eos % (Auto) Lymph # [place] # Seg Neutrophils % Seg Neuts % (Manual) Lymphocytes % (Manual) Seg Neutrophils # Seg Neutrophils # Man Lymphocytes # (Manual) Monocytes % (Manual) Eosinophils % (Manual) Monocytes # (Manual) Eosinophils # (Manual) D-Dimer Heparin Anti-Xa Level ABG pH POC ABG pCO2 POC ABG pO2 ABG pO2 ABG HCO3 ABG O2 Saturation ABG Base Excess ABG Hemoglobin ABG Oxyhemoglobin VBG pH Oxyhemoglobin Sodium Potassium Chloride Carbon Dioxide BUN Creatinine Glucose POC Glucose 130 H 207 H 175 H Lactic Acid Calcium Ferritin AST Alkaline Phosphatase Lactate Dehydrogenase Total Creatine Kinase CK-MB (CK-2) C-Reactive Protein Total Protein Albumin Troponin T HDL Cholesterol Urine WBC (Auto) Urine Creatinine Urine Total Protein Coronavirus (PCR) Crossmatch 06/19/20 06/19/20 06/20/20 11:42 22:54 05:17 WBC RBC Hgb Hct MCHC RDW Lymph % (Auto) [place] % (Auto) Eos % (Auto) Lymph # [place] # Seg Neutrophils % Seg Neuts % (Manual) Lymphocytes % (Manual) Seg Neutrophils # Seg Neutrophils # Man Lymphocytes # (Manual) Monocytes % (Manual) Eosinophils % (Manual) Monocytes # (Manual) Eosinophils # (Manual) D-Dimer Heparin Anti-Xa Level ABG pH POC ABG pCO2 POC ABG pO2 ABG pO2 ABG HCO3 ABG O2 Saturation ABG Base Excess ABG Hemoglobin ABG Oxyhemoglobin VBG pH Oxyhemoglobin Sodium Potassium Chloride Carbon Dioxide BUN Creatinine Glucose POC Glucose 166 H 135 H 218 H Lactic Acid Calcium Ferritin AST Alkaline Phosphatase Lactate Dehydrogenase Total Creatine Kinase CK-MB (CK-2) C-Reactive Protein Total Protein Albumin Troponin T HDL Cholesterol Urine WBC (Auto) Urine Creatinine Urine Total Protein Coronavirus (PCR) Crossmatch 06/20/20 06/20/20 06/20/20 12:04 16:25 16:35 WBC RBC Hgb Hct MCHC RDW Lymph % (Auto) [place] % (Auto) Eos % (Auto) Lymph # [place] # Seg Neutrophils % Seg Neuts % (Manual) Lymphocytes % (Manual) Seg Neutrophils # Seg Neutrophils # Man Lymphocytes # (Manual) Monocytes % (Manual) Eosinophils % (Manual) Monocytes # (Manual) Eosinophils # (Manual) D-Dimer Heparin Anti-Xa Level ABG pH POC ABG pCO2 POC ABG pO2 ABG pO2 59.6 L ABG HCO3 28.7 H ABG O2 Saturation 93.5 L ABG Base Excess 3.4 H ABG Hemoglobin 7.2 L ABG Oxyhemoglobin VBG pH Oxyhemoglobin 91.3 L Sodium Potassium Chloride Carbon Dioxide BUN Creatinine Glucose POC Glucose 194 H 137 H Lactic Acid Calcium Ferritin AST Alkaline Phosphatase Lactate Dehydrogenase Total Creatine Kinase CK-MB (CK-2) C-Reactive Protein Total Protein Albumin Troponin T HDL Cholesterol Urine WBC (Auto) Urine Creatinine Urine Total Protein Coronavirus (PCR) Crossmatch 06/20/20 06/21/20 06/21/20 23:59 06:25 12:01 WBC RBC Hgb Hct MCHC RDW Lymph % (Auto) [place] % (Auto) Eos % (Auto) Lymph # [place] # Seg Neutrophils % Seg Neuts % (Manual) Lymphocytes % (Manual) Seg Neutrophils # Seg Neutrophils # Man Lymphocytes # (Manual) Monocytes % (Manual) Eosinophils % (Manual) Monocytes # (Manual) Eosinophils # (Manual) D-Dimer Heparin Anti-Xa Level ABG pH POC ABG pCO2 POC ABG pO2 ABG pO2 ABG HCO3 ABG O2 Saturation ABG Base Excess ABG Hemoglobin ABG Oxyhemoglobin VBG pH Oxyhemoglobin Sodium Potassium Chloride Carbon Dioxide BUN Creatinine Glucose POC Glucose 156 H 177 H 195 H Lactic Acid Calcium Ferritin AST Alkaline Phosphatase Lactate Dehydrogenase Total Creatine Kinase CK-MB (CK-2) C-Reactive Protein Total Protein Albumin Troponin T HDL Cholesterol Urine WBC (Auto) Urine Creatinine Urine Total Protein Coronavirus (PCR) Crossmatch 06/21/20 06/21/20 06/22/20 17:04 21:51 05:06 WBC RBC Hgb Hct MCHC RDW Lymph % (Auto) [place] % (Auto) Eos % (Auto) Lymph # [place] # Seg Neutrophils % Seg Neuts % (Manual) Lymphocytes % (Manual) Seg Neutrophils # Seg Neutrophils # Man Lymphocytes # (Manual) Monocytes % (Manual) Eosinophils % (Manual) Monocytes # (Manual) Eosinophils # (Manual) D-Dimer Heparin Anti-Xa Level ABG pH POC ABG pCO2 POC ABG pO2 ABG pO2 ABG HCO3 ABG O2 Saturation ABG Base Excess ABG Hemoglobin ABG Oxyhemoglobin VBG pH Oxyhemoglobin Sodium Potassium Chloride Carbon Dioxide BUN Creatinine Glucose POC Glucose 156 H 154 H 167 H Lactic Acid Calcium Ferritin AST Alkaline Phosphatase Lactate Dehydrogenase Total Creatine Kinase CK-MB (CK-2) C-Reactive Protein Total Protein Albumin Troponin T HDL Cholesterol Urine WBC (Auto) Urine Creatinine Urine Total Protein Coronavirus (PCR) Crossmatch 06/22/20 06/22/20 06/22/20 11:20 15:27 16:58 WBC RBC Hgb Hct MCHC RDW Lymph % (Auto) [place] % (Auto) Eos % (Auto) Lymph # [place] # Seg Neutrophils % Seg Neuts % (Manual) Lymphocytes % (Manual) Seg Neutrophils # Seg Neutrophils # Man Lymphocytes # (Manual) Monocytes % (Manual) Eosinophils % (Manual) Monocytes # (Manual) Eosinophils # (Manual) D-Dimer Heparin Anti-Xa Level ABG pH 7.206 L POC ABG pCO2 79.9 H POC ABG pO2 ABG pO2 ABG HCO3 ABG O2 Saturation ABG Base Excess ABG Hemoglobin 8.3 L ABG Oxyhemoglobin VBG pH Oxyhemoglobin Sodium Potassium Chloride Carbon Dioxide BUN Creatinine Glucose POC Glucose 181 H 230 H Lactic Acid Calcium Ferritin AST Alkaline Phosphatase Lactate Dehydrogenase Total Creatine Kinase CK-MB (CK-2) C-Reactive Protein Total Protein Albumin Troponin T HDL Cholesterol Urine WBC (Auto) Urine Creatinine Urine Total Protein Coronavirus (PCR) Crossmatch 06/22/20 06/23/20 06/23/20 22:26 05:49 05:49 WBC RBC 2.58 L Hgb 7.4 L Hct 23.2 L MCHC RDW 17.0 H Lymph % (Auto) [place] % (Auto) 11.2 H Eos % (Auto) Lymph # 1.0 L [place] # Seg Neutrophils % Seg Neuts % (Manual) Lymphocytes % (Manual) Seg Neutrophils # Seg Neutrophils # Man Lymphocytes # (Manual) Monocytes % (Manual) Eosinophils % (Manual) Monocytes # (Manual) Eosinophils # (Manual) D-Dimer Heparin Anti-Xa Level ABG pH POC ABG pCO2 POC ABG pO2 ABG pO2 ABG HCO3 ABG O2 Saturation ABG Base Excess ABG Hemoglobin ABG Oxyhemoglobin VBG pH Oxyhemoglobin Sodium Potassium Chloride Carbon Dioxide BUN 68 H Creatinine 2.4 H Glucose 198 H POC Glucose 195 H Lactic Acid Calcium Ferritin AST Alkaline Phosphatase Lactate Dehydrogenase Total Creatine Kinase CK-MB (CK-2) C-Reactive Protein Total Protein Albumin Troponin T HDL Cholesterol Urine WBC (Auto) Urine Creatinine Urine Total Protein Coronavirus (PCR) Crossmatch 06/23/20 06/23/20 06/23/20 05:50 12:29 12:34 WBC RBC Hgb Hct MCHC RDW Lymph % (Auto) [place] % (Auto) Eos % (Auto) Lymph # [place] # Seg Neutrophils % Seg Neuts % (Manual) Lymphocytes % (Manual) Seg Neutrophils # Seg Neutrophils # Man Lymphocytes # (Manual) Monocytes % (Manual) Eosinophils % (Manual) Monocytes # (Manual) Eosinophils # (Manual) D-Dimer Heparin Anti-Xa Level ABG pH POC ABG pCO2 54.7 H POC ABG pO2 68.8 L ABG pO2 ABG HCO3 ABG O2 Saturation ABG Base Excess ABG Hemoglobin 9.8 L ABG Oxyhemoglobin 92.6 L VBG pH Oxyhemoglobin Sodium Potassium Chloride Carbon Dioxide BUN Creatinine Glucose POC Glucose 202 H 218 H Lactic Acid Calcium Ferritin AST Alkaline Phosphatase Lactate Dehydrogenase Total Creatine Kinase CK-MB (CK-2) C-Reactive Protein Total Protein Albumin Troponin T HDL Cholesterol Urine WBC (Auto) Urine Creatinine Urine Total Protein Coronavirus (PCR) Crossmatch 06/23/20 06/23/20 06/24/20 16:02 22:22 01:06 WBC RBC Hgb Hct MCHC RDW Lymph % (Auto) [place] % (Auto) Eos % (Auto) Lymph # [place] # Seg Neutrophils % Seg Neuts % (Manual) Lymphocytes % (Manual) Seg Neutrophils # Seg Neutrophils # Man Lymphocytes # (Manual) Monocytes % (Manual) Eosinophils % (Manual) Monocytes # (Manual) Eosinophils # (Manual) D-Dimer Heparin Anti-Xa Level ABG pH POC ABG pCO2 POC ABG pO2 ABG pO2 ABG HCO3 ABG O2 Saturation ABG Base Excess ABG Hemoglobin ABG Oxyhemoglobin VBG pH Oxyhemoglobin Sodium Potassium Chloride Carbon Dioxide BUN Creatinine Glucose POC Glucose 190 H 166 H 171 H Lactic Acid Calcium Ferritin AST Alkaline Phosphatase Lactate Dehydrogenase Total Creatine Kinase CK-MB (CK-2) C-Reactive Protein Total Protein Albumin Troponin T HDL Cholesterol Urine WBC (Auto) Urine Creatinine Urine Total Protein Coronavirus (PCR) Crossmatch 06/24/20 06/24/20 06/24/20 04:48 05:35 11:48 WBC RBC Hgb Hct MCHC RDW Lymph % (Auto) [place] % (Auto) Eos % (Auto) Lymph # [place] # Seg Neutrophils % Seg Neuts % (Manual) Lymphocytes % (Manual) Seg Neutrophils # Seg Neutrophils # Man Lymphocytes # (Manual) Monocytes % (Manual) Eosinophils % (Manual) Monocytes # (Manual) Eosinophils # (Manual) D-Dimer Heparin Anti-Xa Level ABG pH POC ABG pCO2 POC ABG pO2 ABG pO2 ABG HCO3 ABG O2 Saturation ABG Base Excess ABG Hemoglobin ABG Oxyhemoglobin VBG pH Oxyhemoglobin Sodium Potassium Chloride Carbon Dioxide BUN 75 H Creatinine 2.6 H Glucose 179 H POC Glucose 172 H 153 H Lactic Acid Calcium Ferritin AST Alkaline Phosphatase Lactate Dehydrogenase Total Creatine Kinase CK-MB (CK-2) C-Reactive Protein Total Protein Albumin Troponin T HDL Cholesterol Urine WBC (Auto) Urine Creatinine Urine Total Protein Coronavirus (PCR) Crossmatch 06/24/20 06/24/20 06/25/20 16:38 21:52 12:00 WBC RBC Hgb Hct MCHC RDW Lymph % (Auto) [place] % (Auto) Eos % (Auto) Lymph # [place] # Seg Neutrophils % Seg Neuts % (Manual) Lymphocytes % (Manual) Seg Neutrophils # Seg Neutrophils # Man Lymphocytes # (Manual) Monocytes % (Manual) Eosinophils % (Manual) Monocytes # (Manual) Eosinophils # (Manual) D-Dimer Heparin Anti-Xa Level ABG pH POC ABG pCO2 POC ABG pO2 ABG pO2 ABG HCO3 ABG O2 Saturation ABG Base Excess ABG Hemoglobin ABG Oxyhemoglobin VBG pH Oxyhemoglobin Sodium Potassium Chloride Carbon Dioxide BUN Creatinine Glucose POC Glucose 123 H 115 H 203 H Lactic Acid Calcium Ferritin AST Alkaline Phosphatase Lactate Dehydrogenase Total Creatine Kinase CK-MB (CK-2) C-Reactive Protein Total Protein Albumin Troponin T HDL Cholesterol Urine WBC (Auto) Urine Creatinine Urine Total Protein Coronavirus (PCR) Crossmatch 06/25/20 06/25/20 06/25/20 15:43 16:37 23:02 WBC RBC Hgb Hct MCHC RDW Lymph % (Auto) [place] % (Auto) Eos % (Auto) Lymph # [place] # Seg Neutrophils % Seg Neuts % (Manual) Lymphocytes % (Manual) Seg Neutrophils # Seg Neutrophils # Man Lymphocytes # (Manual) Monocytes % (Manual) Eosinophils % (Manual) Monocytes # (Manual) Eosinophils # (Manual) D-Dimer Heparin Anti-Xa Level ABG pH POC ABG pCO2 POC ABG pO2 ABG pO2 ABG HCO3 ABG O2 Saturation ABG Base Excess ABG Hemoglobin ABG Oxyhemoglobin VBG pH Oxyhemoglobin Sodium Potassium Chloride Carbon Dioxide BUN 71 H Creatinine 1.8 H Glucose 170 H POC Glucose 191 H 126 H Lactic Acid Calcium 8.2 L Ferritin AST Alkaline Phosphatase Lactate Dehydrogenase Total Creatine Kinase CK-MB (CK-2) C-Reactive Protein Total Protein Albumin Troponin T HDL Cholesterol Urine WBC (Auto) Urine Creatinine Urine Total Protein Coronavirus (PCR) Crossmatch 06/26/20 06/26/20 06/26/20 06:34 06:34 09:27 WBC RBC 2.41 L Hgb 6.9 L Hct 21.5 L MCHC RDW 16.7 H Lymph % (Auto) 10.9 L [place] % (Auto) 9.6 H Eos % (Auto) Lymph # 0.7 L [place] # Seg Neutrophils % 75.4 H Seg Neuts % (Manual) Lymphocytes % (Manual) Seg Neutrophils # Seg Neutrophils # Man Lymphocytes # (Manual) Monocytes % (Manual) Eosinophils % (Manual) Monocytes # (Manual) Eosinophils # (Manual) D-Dimer Heparin Anti-Xa Level ABG pH POC ABG pCO2 POC ABG pO2 ABG pO2 ABG HCO3 ABG O2 Saturation ABG Base Excess ABG Hemoglobin ABG Oxyhemoglobin VBG pH Oxyhemoglobin Sodium Potassium Chloride Carbon Dioxide BUN 77 H Creatinine 1.9 H Glucose 190 H POC Glucose Lactic Acid Calcium Ferritin AST Alkaline Phosphatase Lactate Dehydrogenase Total Creatine Kinase CK-MB (CK-2) C-Reactive Protein Total Protein Albumin Troponin T HDL Cholesterol Urine WBC (Auto) Urine Creatinine Urine Total Protein Coronavirus (PCR) Crossmatch See Detail 06/26/20 06/26/20 06/26/20 12:15 16:28 17:28 WBC RBC Hgb Hct MCHC RDW Lymph % (Auto) [place] % (Auto) Eos % (Auto) Lymph # [place] # Seg Neutrophils % Seg Neuts % (Manual) Lymphocytes % (Manual) Seg Neutrophils # Seg Neutrophils # Man Lymphocytes # (Manual) Monocytes % (Manual) Eosinophils % (Manual) Monocytes # (Manual) Eosinophils # (Manual) D-Dimer Heparin Anti-Xa Level ABG pH POC ABG pCO2 POC ABG pO2 ABG pO2 ABG HCO3 ABG O2 Saturation ABG Base Excess ABG Hemoglobin ABG Oxyhemoglobin VBG pH Oxyhemoglobin Sodium Potassium Chloride Carbon Dioxide BUN Creatinine Glucose POC Glucose 187 H 149 H 189 H Lactic Acid Calcium Ferritin AST Alkaline Phosphatase Lactate Dehydrogenase Total Creatine Kinase CK-MB (CK-2) C-Reactive Protein Total Protein Albumin Troponin T HDL Cholesterol Urine WBC (Auto) Urine Creatinine Urine Total Protein Coronavirus (PCR) Crossmatch 06/26/20 06/26/20 06/26/20 18:30 18:30 18:30 WBC RBC 2.87 L Hgb 8.2 L Hct 25.9 L MCHC RDW 17.8 H Lymph % (Auto) [place] % (Auto) Eos % (Auto) Lymph # [place] # Seg Neutrophils % Seg Neuts % (Manual) 83.0 H Lymphocytes % (Manual) 8.0 L Seg Neutrophils # Seg Neutrophils # Man Lymphocytes # (Manual) 0.6 L Monocytes % (Manual) Eosinophils % (Manual) Monocytes # (Manual) Eosinophils # (Manual) D-Dimer Heparin Anti-Xa Level ABG pH POC ABG pCO2 POC ABG pO2 ABG pO2 ABG HCO3 ABG O2 Saturation ABG Base Excess ABG Hemoglobin ABG Oxyhemoglobin VBG pH Oxyhemoglobin Sodium Potassium Chloride Carbon Dioxide BUN 80 H Creatinine 2.1 H Glucose 260 H POC Glucose Lactic Acid 4.30 H* Calcium 8.3 L Ferritin AST Alkaline Phosphatase Lactate Dehydrogenase Total Creatine Kinase CK-MB (CK-2) C-Reactive Protein Total Protein Albumin Troponin T HDL Cholesterol Urine WBC (Auto) Urine Creatinine Urine Total Protein Coronavirus (PCR) Crossmatch 06/26/20 06/27/20 06/27/20 18:50 01:00 04:29 WBC RBC Hgb Hct MCHC RDW Lymph % (Auto) [place] % (Auto) Eos % (Auto) Lymph # [place] # Seg Neutrophils % Seg Neuts % (Manual) Lymphocytes % (Manual) Seg Neutrophils # Seg Neutrophils # Man Lymphocytes # (Manual) Monocytes % (Manual) Eosinophils % (Manual) Monocytes # (Manual) Eosinophils # (Manual) D-Dimer Heparin Anti-Xa Level ABG pH 7.296 L POC ABG pCO2 POC ABG pO2 ABG pO2 116.5 H 200.5 H ABG HCO3 28.4 H ABG O2 Saturation 99.3 H ABG Base Excess 3.7 H ABG Hemoglobin 5.6 L ABG Oxyhemoglobin VBG pH Oxyhemoglobin Sodium Potassium Chloride Carbon Dioxide BUN Creatinine Glucose POC Glucose 123 H Lactic Acid Calcium Ferritin AST Alkaline Phosphatase Lactate Dehydrogenase Total Creatine Kinase CK-MB (CK-2) C-Reactive Protein Total Protein Albumin Troponin T HDL Cholesterol Urine WBC (Auto) Urine Creatinine Urine Total Protein Coronavirus (PCR) Crossmatch 06/27/20 06/27/20 06/27/20 05:00 05:00 05:00 WBC RBC 2.75 L Hgb 7.9 L Hct 24.3 L MCHC RDW 17.1 H Lymph % (Auto) 8.5 L [place] % (Auto) 12.6 H Eos % (Auto) Lymph # 0.7 L [place] # 1.0 H Seg Neutrophils % 77.5 H Seg Neuts % (Manual) Lymphocytes % (Manual) Seg Neutrophils # Seg Neutrophils # Man Lymphocytes # (Manual) Monocytes % (Manual) Eosinophils % (Manual) Monocytes # (Manual) Eosinophils # (Manual) D-Dimer Heparin Anti-Xa Level ABG pH POC ABG pCO2 POC ABG pO2 ABG pO2 ABG HCO3 ABG O2 Saturation ABG Base Excess ABG Hemoglobin ABG Oxyhemoglobin VBG pH Oxyhemoglobin Sodium Potassium Chloride Carbon Dioxide BUN 80 H Creatinine 2.0 H Glucose 129 H POC Glucose Lactic Acid 0.60 L Calcium 7.9 L Ferritin AST Alkaline Phosphatase Lactate Dehydrogenase Total Creatine Kinase CK-MB (CK-2) C-Reactive Protein Total Protein Albumin Troponin T HDL Cholesterol Urine WBC (Auto) Urine Creatinine Urine Total Protein Coronavirus (PCR) Crossmatch 06/27/20 06/27/20 06/27/20 05:23 13:46 17:25 WBC RBC Hgb Hct MCHC RDW Lymph % (Auto) [place] % (Auto) Eos % (Auto) Lymph # [place] # Seg Neutrophils % Seg Neuts % (Manual) Lymphocytes % (Manual) Seg Neutrophils # Seg Neutrophils # Man Lymphocytes # (Manual) Monocytes % (Manual) Eosinophils % (Manual) Monocytes # (Manual) Eosinophils # (Manual) D-Dimer Heparin Anti-Xa Level ABG pH POC ABG pCO2 POC ABG pO2 ABG pO2 ABG HCO3 ABG O2 Saturation ABG Base Excess ABG Hemoglobin ABG Oxyhemoglobin VBG pH Oxyhemoglobin Sodium Potassium Chloride Carbon Dioxide BUN Creatinine Glucose POC Glucose 109 H 158 H 162 H Lactic Acid Calcium Ferritin AST Alkaline Phosphatase Lactate Dehydrogenase Total Creatine Kinase CK-MB (CK-2) C-Reactive Protein Total Protein Albumin Troponin T HDL Cholesterol Urine WBC (Auto) Urine Creatinine Urine Total Protein Coronavirus (PCR) Crossmatch 06/27/20 06/27/20 06/28/20 18:43 23:46 04:05 WBC RBC Hgb 7.7 L Hct 22.1 L MCHC RDW Lymph % (Auto) [place] % (Auto) Eos % (Auto) Lymph # [place] # Seg Neutrophils % Seg Neuts % (Manual) Lymphocytes % (Manual) Seg Neutrophils # Seg Neutrophils # Man Lymphocytes # (Manual) Monocytes % (Manual) Eosinophils % (Manual) Monocytes # (Manual) Eosinophils # (Manual) D-Dimer Heparin Anti-Xa Level ABG pH POC ABG pCO2 POC ABG pO2 ABG pO2 102.7 H ABG HCO3 28.7 H ABG O2 Saturation ABG Base Excess 3.7 H ABG Hemoglobin ABG Oxyhemoglobin VBG pH Oxyhemoglobin Sodium Potassium Chloride Carbon Dioxide BUN Creatinine Glucose POC Glucose 142 H Lactic Acid Calcium Ferritin AST Alkaline Phosphatase Lactate Dehydrogenase Total Creatine Kinase CK-MB (CK-2) C-Reactive Protein Total Protein Albumin Troponin T HDL Cholesterol Urine WBC (Auto) Urine Creatinine Urine Total Protein Coronavirus (PCR) Crossmatch 06/28/20 06/28/20 06/28/20 09:47 09:47 12:02 WBC RBC 2.53 L Hgb 7.4 L Hct 22.2 L MCHC RDW 16.8 H Lymph % (Auto) [place] % (Auto) 13.5 H Eos % (Auto) Lymph # 1.1 L [place] # 1.0 H Seg Neutrophils % Seg Neuts % (Manual) Lymphocytes % (Manual) Seg Neutrophils # Seg Neutrophils # Man Lymphocytes # (Manual) Monocytes % (Manual) Eosinophils % (Manual) Monocytes # (Manual) Eosinophils # (Manual) D-Dimer Heparin Anti-Xa Level ABG pH POC ABG pCO2 POC ABG pO2 ABG pO2 ABG HCO3 ABG O2 Saturation ABG Base Excess ABG Hemoglobin ABG Oxyhemoglobin VBG pH Oxyhemoglobin Sodium Potassium Chloride Carbon Dioxide BUN 80 H Creatinine 1.5 H Glucose 139 H POC Glucose 169 H Lactic Acid Calcium 7.9 L Ferritin AST Alkaline Phosphatase Lactate Dehydrogenase Total Creatine Kinase CK-MB (CK-2) C-Reactive Protein Total Protein 5.0 L Albumin 2.1 L Troponin T HDL Cholesterol Urine WBC (Auto) Urine Creatinine Urine Total Protein Coronavirus (PCR) Crossmatch 06/28/20 06/28/20 06/28/20 12:30 12:30 17:24 WBC RBC 2.38 L Hgb 7.3 L Hct 20.9 L MCHC 35 H RDW 16.7 H Lymph % (Auto) [place] % (Auto) Eos % (Auto) Lymph # [place] # Seg Neutrophils % Seg Neuts % (Manual) Lymphocytes % (Manual) Seg Neutrophils # Seg Neutrophils # Man Lymphocytes # (Manual) Monocytes % (Manual) Eosinophils % (Manual) Monocytes # (Manual) Eosinophils # (Manual) D-Dimer Heparin Anti-Xa Level ABG pH POC ABG pCO2 POC ABG pO2 ABG pO2 ABG HCO3 ABG O2 Saturation ABG Base Excess ABG Hemoglobin ABG Oxyhemoglobin VBG pH Oxyhemoglobin Sodium Potassium Chloride Carbon Dioxide BUN 74 H Creatinine 1.5 H Glucose 143 H POC Glucose 173 H Lactic Acid Calcium 7.5 L Ferritin AST Alkaline Phosphatase Lactate Dehydrogenase Total Creatine Kinase CK-MB (CK-2) C-Reactive Protein Total Protein Albumin Troponin T HDL Cholesterol Urine WBC (Auto) Urine Creatinine Urine Total Protein Coronavirus (PCR) Crossmatch 06/29/20 06/29/20 06/29/20 00:02 03:54 04:38 WBC RBC 2.55 L Hgb 7.3 L Hct 22.4 L MCHC RDW 16.4 H Lymph % (Auto) 13.3 L [place] % (Auto) 12.5 H Eos % (Auto) Lymph # 1.1 L [place] # 1.0 H Seg Neutrophils % Seg Neuts % (Manual) Lymphocytes % (Manual) Seg Neutrophils # Seg Neutrophils # Man Lymphocytes # (Manual) Monocytes % (Manual) Eosinophils % (Manual) Monocytes # (Manual) Eosinophils # (Manual) D-Dimer Heparin Anti-Xa Level ABG pH POC ABG pCO2 POC ABG pO2 ABG pO2 ABG HCO3 26.9 H ABG O2 Saturation ABG Base Excess ABG Hemoglobin 6.9 L ABG Oxyhemoglobin VBG pH Oxyhemoglobin Sodium Potassium Chloride Carbon Dioxide BUN Creatinine Glucose POC Glucose 142 H Lactic Acid Calcium Ferritin AST Alkaline Phosphatase Lactate Dehydrogenase Total Creatine Kinase CK-MB (CK-2) C-Reactive Protein Total Protein Albumin Troponin T HDL Cholesterol Urine WBC (Auto) Urine Creatinine Urine Total Protein Coronavirus (PCR) Crossmatch 06/29/20 06/29/20 06/29/20 04:38 05:38 12:25 WBC RBC Hgb Hct MCHC RDW Lymph % (Auto) [place] % (Auto) Eos % (Auto) Lymph # [place] # Seg Neutrophils % Seg Neuts % (Manual) Lymphocytes % (Manual) Seg Neutrophils # Seg Neutrophils # Man Lymphocytes # (Manual) Monocytes % (Manual) Eosinophils % (Manual) Monocytes # (Manual) Eosinophils # (Manual) D-Dimer Heparin Anti-Xa Level ABG pH POC ABG pCO2 POC ABG pO2 ABG pO2 ABG HCO3 ABG O2 Saturation ABG Base Excess ABG Hemoglobin ABG Oxyhemoglobin VBG pH Oxyhemoglobin Sodium Potassium Chloride 107.8 H Carbon Dioxide BUN 72 H Creatinine 1.4 H Glucose 127 H POC Glucose 122 H 138 H Lactic Acid Calcium 7.4 L Ferritin AST Alkaline Phosphatase Lactate Dehydrogenase Total Creatine Kinase CK-MB (CK-2) C-Reactive Protein Total Protein Albumin Troponin T HDL Cholesterol Urine WBC (Auto) Urine Creatinine Urine Total Protein Coronavirus (PCR) Crossmatch 06/29/20 06/29/20 06/29/20 14:45 14:45 14:45 WBC RBC Hgb Hct MCHC RDW Lymph % (Auto) [place] % (Auto) Eos % (Auto) Lymph # [place] # Seg Neutrophils % Seg Neuts % (Manual) Lymphocytes % (Manual) Seg Neutrophils # Seg Neutrophils # Man Lymphocytes # (Manual) Monocytes % (Manual) Eosinophils % (Manual) Monocytes # (Manual) Eosinophils # (Manual) D-Dimer 2310.15 H Heparin Anti-Xa Level ABG pH POC ABG pCO2 POC ABG pO2 ABG pO2 ABG HCO3 ABG O2 Saturation ABG Base Excess ABG Hemoglobin ABG Oxyhemoglobin VBG pH Oxyhemoglobin Sodium Potassium Chloride Carbon Dioxide BUN Creatinine Glucose POC Glucose Lactic Acid Calcium Ferritin 223.6 H AST Alkaline Phosphatase Lactate Dehydrogenase 367 H Total Creatine Kinase CK-MB (CK-2) C-Reactive Protein 3.60 H Total Protein Albumin Troponin T HDL Cholesterol Urine WBC (Auto) Urine Creatinine Urine Total Protein Coronavirus (PCR) Crossmatch 06/29/20 06/29/20 06/29/20 18:27 23:35 Unknown WBC RBC Hgb Hct MCHC RDW Lymph % (Auto) [place] % (Auto) Eos % (Auto) Lymph # [place] # Seg Neutrophils % Seg Neuts % (Manual) Lymphocytes % (Manual) Seg Neutrophils # Seg Neutrophils # Man Lymphocytes # (Manual) Monocytes % (Manual) Eosinophils % (Manual) Monocytes # (Manual) Eosinophils # (Manual) D-Dimer Heparin Anti-Xa Level ABG pH POC ABG pCO2 POC ABG pO2 ABG pO2 ABG HCO3 ABG O2 Saturation ABG Base Excess ABG Hemoglobin ABG Oxyhemoglobin VBG pH Oxyhemoglobin Sodium Potassium Chloride Carbon Dioxide BUN Creatinine Glucose POC Glucose 112 H 140 H Lactic Acid Calcium Ferritin AST Alkaline Phosphatase Lactate Dehydrogenase Total Creatine Kinase CK-MB (CK-2) C-Reactive Protein Total Protein Albumin Troponin T HDL Cholesterol Urine WBC (Auto) Urine Creatinine Urine Total Protein Coronavirus (PCR) Positive A Crossmatch 06/30/20 06/30/20 06/30/20 04:10 04:10 06:09 WBC RBC 2.44 L Hgb 7.1 L Hct 21.5 L MCHC RDW 16.6 H Lymph % (Auto) 11.0 L [place] % (Auto) 10.8 H Eos % (Auto) Lymph # 0.9 L [place] # 0.9 H Seg Neutrophils % 73.7 H Seg Neuts % (Manual) Lymphocytes % (Manual) Seg Neutrophils # Seg Neutrophils # Man Lymphocytes # (Manual) Monocytes % (Manual) Eosinophils % (Manual) Monocytes # (Manual) Eosinophils # (Manual) D-Dimer Heparin Anti-Xa Level ABG pH POC ABG pCO2 POC ABG pO2 ABG pO2 ABG HCO3 ABG O2 Saturation ABG Base Excess ABG Hemoglobin ABG Oxyhemoglobin VBG pH Oxyhemoglobin Sodium Potassium Chloride 109.1 H Carbon Dioxide BUN 74 H Creatinine 1.3 H Glucose 191 H POC Glucose 187 H Lactic Acid Calcium 7.8 L Ferritin AST Alkaline Phosphatase Lactate Dehydrogenase Total Creatine Kinase CK-MB (CK-2) C-Reactive Protein Total Protein Albumin Troponin T HDL Cholesterol Urine WBC (Auto) Urine Creatinine Urine Total Protein Coronavirus (PCR) Crossmatch 06/30/20 06/30/20 06/30/20 12:04 17:43 23:41 WBC RBC Hgb Hct MCHC RDW Lymph % (Auto) [place] % (Auto) Eos % (Auto) Lymph # [place] # Seg Neutrophils % Seg Neuts % (Manual) Lymphocytes % (Manual) Seg Neutrophils # Seg Neutrophils # Man Lymphocytes # (Manual) Monocytes % (Manual) Eosinophils % (Manual) Monocytes # (Manual) Eosinophils # (Manual) D-Dimer Heparin Anti-Xa Level ABG pH POC ABG pCO2 POC ABG pO2 ABG pO2 ABG HCO3 ABG O2 Saturation ABG Base Excess ABG Hemoglobin ABG Oxyhemoglobin VBG pH Oxyhemoglobin Sodium Potassium Chloride Carbon Dioxide BUN Creatinine Glucose POC Glucose 112 H 177 H 143 H Lactic Acid Calcium Ferritin AST Alkaline Phosphatase Lactate Dehydrogenase Total Creatine Kinase CK-MB (CK-2) C-Reactive Protein Total Protein Albumin Troponin T HDL Cholesterol Urine WBC (Auto) Urine Creatinine Urine Total Protein Coronavirus (PCR) Crossmatch 07/01/20 07/01/20 07/01/20 05:02 05:52 06:01 WBC 12.6 H RBC 2.95 L Hgb 8.2 L Hct 26.0 L MCHC RDW 16.9 H Lymph % (Auto) [place] % (Auto) Eos % (Auto) Lymph # [place] # Seg Neutrophils % Seg Neuts % (Manual) Lymphocytes % (Manual) Seg Neutrophils # Seg Neutrophils # Man 8.6 H Lymphocytes # (Manual) Monocytes % (Manual) Eosinophils % (Manual) 5.0 H Monocytes # (Manual) Eosinophils # (Manual) 0.6 H D-Dimer Heparin Anti-Xa Level ABG pH POC ABG pCO2 POC ABG pO2 ABG pO2 ABG HCO3 ABG O2 Saturation ABG Base Excess ABG Hemoglobin 8.2 L ABG Oxyhemoglobin VBG pH Oxyhemoglobin Sodium Potassium Chloride Carbon Dioxide BUN Creatinine Glucose POC Glucose 129 H Lactic Acid Calcium Ferritin AST Alkaline Phosphatase Lactate Dehydrogenase Total Creatine Kinase CK-MB (CK-2) C-Reactive Protein Total Protein Albumin Troponin T HDL Cholesterol Urine WBC (Auto) Urine Creatinine Urine Total Protein Coronavirus (PCR) Crossmatch 07/01/20 07/01/20 07/01/20 06:01 06:01 06:08 WBC RBC Hgb Hct MCHC RDW Lymph % (Auto) [place] % (Auto) Eos % (Auto) Lymph # [place] # Seg Neutrophils % Seg Neuts % (Manual) Lymphocytes % (Manual) Seg Neutrophils # Seg Neutrophils # Man Lymphocytes # (Manual) Monocytes % (Manual) Eosinophils % (Manual) Monocytes # (Manual) Eosinophils # (Manual) D-Dimer Heparin Anti-Xa Level ABG pH POC ABG pCO2 POC ABG pO2 ABG pO2 ABG HCO3 ABG O2 Saturation ABG Base Excess ABG Hemoglobin ABG Oxyhemoglobin VBG pH Oxyhemoglobin Sodium 147 H Potassium Chloride 108.0 H Carbon Dioxide BUN 71 H Creatinine 1.3 H Glucose 193 H POC Glucose 192 H Lactic Acid Calcium 8.1 L Ferritin AST Alkaline Phosphatase Lactate Dehydrogenase Total Creatine Kinase 300 H CK-MB (CK-2) C-Reactive Protein Total Protein Albumin Troponin T 0.067 H HDL Cholesterol 61 H Urine WBC (Auto) Urine Creatinine Urine Total Protein Coronavirus (PCR) Crossmatch 07/01/20 07/01/20 07/02/20 12:23 17:40 00:18 WBC RBC Hgb Hct MCHC RDW Lymph % (Auto) [place] % (Auto) Eos % (Auto) Lymph # [place] # Seg Neutrophils % Seg Neuts % (Manual) Lymphocytes % (Manual) Seg Neutrophils # Seg Neutrophils # Man Lymphocytes # (Manual) Monocytes % (Manual) Eosinophils % (Manual) Monocytes # (Manual) Eosinophils # (Manual) D-Dimer Heparin Anti-Xa Level ABG pH POC ABG pCO2 POC ABG pO2 ABG pO2 ABG HCO3 ABG O2 Saturation ABG Base Excess ABG Hemoglobin ABG Oxyhemoglobin VBG pH Oxyhemoglobin Sodium Potassium Chloride Carbon Dioxide BUN Creatinine Glucose POC Glucose 111 H 135 H 145 H Lactic Acid Calcium Ferritin AST Alkaline Phosphatase Lactate Dehydrogenase Total Creatine Kinase CK-MB (CK-2) C-Reactive Protein Total Protein Albumin Troponin T HDL Cholesterol Urine WBC (Auto) Urine Creatinine Urine Total Protein Coronavirus (PCR) Crossmatch 07/02/20 07/02/20 07/02/20 04:11 04:23 05:54 WBC RBC Hgb Hct MCHC RDW Lymph % (Auto) [place] % (Auto) Eos % (Auto) Lymph # [place] # Seg Neutrophils % Seg Neuts % (Manual) Lymphocytes % (Manual) Seg Neutrophils # Seg Neutrophils # Man Lymphocytes # (Manual) Monocytes % (Manual) Eosinophils % (Manual) Monocytes # (Manual) Eosinophils # (Manual) D-Dimer Heparin Anti-Xa Level ABG pH POC ABG pCO2 POC ABG pO2 ABG pO2 ABG HCO3 ABG O2 Saturation ABG Base Excess ABG Hemoglobin 5.4 L ABG Oxyhemoglobin VBG pH Oxyhemoglobin Sodium Potassium Chloride 108.6 H Carbon Dioxide BUN 72 H Creatinine Glucose 112 H POC Glucose 137 H Lactic Acid Calcium 7.8 L Ferritin AST Alkaline Phosphatase Lactate Dehydrogenase Total Creatine Kinase CK-MB (CK-2) C-Reactive Protein Total Protein Albumin Troponin T HDL Cholesterol Urine WBC (Auto) Urine Creatinine Urine Total Protein Coronavirus (PCR) Crossmatch 07/02/20 07/02/20 07/02/20 11:38 18:04 23:59 WBC RBC Hgb Hct MCHC RDW Lymph % (Auto) [place] % (Auto) Eos % (Auto) Lymph # [place] # Seg Neutrophils % Seg Neuts % (Manual) Lymphocytes % (Manual) Seg Neutrophils # Seg Neutrophils # Man Lymphocytes # (Manual) Monocytes % (Manual) Eosinophils % (Manual) Monocytes # (Manual) Eosinophils # (Manual) D-Dimer Heparin Anti-Xa Level ABG pH POC ABG pCO2 POC ABG pO2 ABG pO2 ABG HCO3 ABG O2 Saturation ABG Base Excess ABG Hemoglobin ABG Oxyhemoglobin VBG pH Oxyhemoglobin Sodium Potassium Chloride Carbon Dioxide BUN Creatinine Glucose POC Glucose 128 H 135 H 156 H Lactic Acid Calcium Ferritin AST Alkaline Phosphatase Lactate Dehydrogenase Total Creatine Kinase CK-MB (CK-2) C-Reactive Protein Total Protein Albumin Troponin T HDL Cholesterol Urine WBC (Auto) Urine Creatinine Urine Total Protein Coronavirus (PCR) Crossmatch 07/03/20 07/03/20 07/03/20 03:49 06:00 11:31 WBC RBC Hgb Hct MCHC RDW Lymph % (Auto) [place] % (Auto) Eos % (Auto) Lymph # [place] # Seg Neutrophils % Seg Neuts % (Manual) Lymphocytes % (Manual) Seg Neutrophils # Seg Neutrophils # Man Lymphocytes # (Manual) Monocytes % (Manual) Eosinophils % (Manual) Monocytes # (Manual) Eosinophils # (Manual) D-Dimer Heparin Anti-Xa Level ABG pH POC ABG pCO2 POC ABG pO2 ABG pO2 121.0 H ABG HCO3 ABG O2 Saturation ABG Base Excess ABG Hemoglobin 8.5 L ABG Oxyhemoglobin VBG pH Oxyhemoglobin Sodium Potassium Chloride Carbon Dioxide BUN Creatinine Glucose POC Glucose 135 H 141 H Lactic Acid Calcium Ferritin AST Alkaline Phosphatase Lactate Dehydrogenase Total Creatine Kinase CK-MB (CK-2) C-Reactive Protein Total Protein Albumin Troponin T HDL Cholesterol Urine WBC (Auto) Urine Creatinine Urine Total Protein Coronavirus (PCR) Crossmatch 07/03/20 07/03/20 07/04/20 16:07 17:40 05:49 WBC RBC Hgb Hct MCHC RDW Lymph % (Auto) [place] % (Auto) Eos % (Auto) Lymph # [place] # Seg Neutrophils % Seg Neuts % (Manual) Lymphocytes % (Manual) Seg Neutrophils # Seg Neutrophils # Man Lymphocytes # (Manual) Monocytes % (Manual) Eosinophils % (Manual) Monocytes # (Manual) Eosinophils # (Manual) D-Dimer Heparin Anti-Xa Level ABG pH POC ABG pCO2 POC ABG pO2 ABG pO2 126.9 H ABG HCO3 ABG O2 Saturation ABG Base Excess ABG Hemoglobin 8.1 L ABG Oxyhemoglobin VBG pH Oxyhemoglobin Sodium Potassium Chloride Carbon Dioxide BUN Creatinine Glucose POC Glucose 120 H 128 H Lactic Acid Calcium Ferritin AST Alkaline Phosphatase Lactate Dehydrogenase Total Creatine Kinase CK-MB (CK-2) C-Reactive Protein Total Protein Albumin Troponin T HDL Cholesterol Urine WBC (Auto) Urine Creatinine Urine Total Protein Coronavirus (PCR) Crossmatch 07/04/20 07/04/20 07/05/20 11:54 18:00 00:07 WBC RBC Hgb Hct MCHC RDW Lymph % (Auto) [place] % (Auto) Eos % (Auto) Lymph # [place] # Seg Neutrophils % Seg Neuts % (Manual) Lymphocytes % (Manual) Seg Neutrophils # Seg Neutrophils # Man Lymphocytes # (Manual) Monocytes % (Manual) Eosinophils % (Manual) Monocytes # (Manual) Eosinophils # (Manual) D-Dimer Heparin Anti-Xa Level ABG pH POC ABG pCO2 POC ABG pO2 ABG pO2 ABG HCO3 ABG O2 Saturation ABG Base Excess ABG Hemoglobin ABG Oxyhemoglobin VBG pH Oxyhemoglobin Sodium Potassium Chloride Carbon Dioxide BUN Creatinine Glucose POC Glucose 168 H 133 H 121 H Lactic Acid Calcium Ferritin AST Alkaline Phosphatase Lactate Dehydrogenase Total Creatine Kinase CK-MB (CK-2) C-Reactive Protein Total Protein Albumin Troponin T HDL Cholesterol Urine WBC (Auto) Urine Creatinine Urine Total Protein Coronavirus (PCR) Crossmatch 07/05/20 07/05/20 07/05/20 01:12 02:30 12:09 WBC RBC 2.35 L Hgb 6.9 L Hct 21.1 L MCHC RDW 16.8 H Lymph % (Auto) [place] % (Auto) Eos % (Auto) Lymph # [place] # Seg Neutrophils % Seg Neuts % (Manual) 74.0 H Lymphocytes % (Manual) 12.0 L Seg Neutrophils # Seg Neutrophils # Man 8.0 H Lymphocytes # (Manual) Monocytes % (Manual) 9.0 H Eosinophils % (Manual) Monocytes # (Manual) 1.0 H Eosinophils # (Manual) D-Dimer Heparin Anti-Xa Level ABG pH POC ABG pCO2 POC ABG pO2 ABG pO2 ABG HCO3 ABG O2 Saturation ABG Base Excess ABG Hemoglobin ABG Oxyhemoglobin VBG pH Oxyhemoglobin Sodium Potassium Chloride Carbon Dioxide BUN Creatinine Glucose POC Glucose 132 H Lactic Acid Calcium Ferritin AST Alkaline Phosphatase Lactate Dehydrogenase Total Creatine Kinase CK-MB (CK-2) C-Reactive Protein Total Protein Albumin Troponin T HDL Cholesterol Urine WBC (Auto) Urine Creatinine Urine Total Protein Coronavirus (PCR) Crossmatch See Detail 07/05/20 13:05 WBC RBC Hgb Hct MCHC RDW Lymph % (Auto) [place] % (Auto) Eos % (Auto) Lymph # [place] # Seg Neutrophils % Seg Neuts % (Manual) Lymphocytes % (Manual) Seg Neutrophils # Seg Neutrophils # Man Lymphocytes # (Manual) Monocytes % (Manual) Eosinophils % (Manual) Monocytes # (Manual) Eosinophils # (Manual) D-Dimer Heparin Anti-Xa Level ABG pH 7.32 L POC ABG pCO2 POC ABG pO2 ABG pO2 78.3 L ABG HCO3 ABG O2 Saturation ABG Base Excess -2.6 L ABG Hemoglobin 7.3 L ABG Oxyhemoglobin VBG pH Oxyhemoglobin Sodium Potassium Chloride Carbon Dioxide BUN Creatinine Glucose POC Glucose Lactic Acid Calcium Ferritin AST Alkaline Phosphatase Lactate Dehydrogenase Total Creatine Kinase CK-MB (CK-2) C-Reactive Protein Total Protein Albumin Troponin T HDL Cholesterol Urine WBC (Auto) Urine Creatinine Urine Total Protein Coronavirus (PCR) Crossmatch Chest x-ray: other (none today) Allied health notes reviewed: nursing
--- NOTE | 2020-07-05 17:34 | Progress Note ---
Assessment and Plan 1. Rectal bleed - based on description, anorectal in origin, and not clinically significant. Resolved. Hgb decreased to 6.9, likely multifactorial with anemia of chronic disease and due to phlebotomy. No indication of significant GI ble ed. -No plans for endoscopy at present. Will sign off. Please call as needed. Subjective Date of service: 07/05/20 Principal diagnosis: Ac hypoxemic resp failure; COVID-19; pneumonia; CHF; Pulm HTN; OHS; DM II Interval history: Pt had smear of brown stool with no blood today, per RN. Objective - Exam Narrative Exam: Pt not examined due to COVID, and no urgent need for physical exam. - Constitutional Vitals: Vital Signs - 12hr 07/05/20 07/05/20 07/05/20 06:00 06:36 07:00 Temperature Pulse Rate 77 76 84 Pulse Rate [ From Monitor] Respiratory 16 19 Rate Blood Pressure 164/56 164/72 153/60 O2 Sat by Pulse 100 100 Oximetry 07/05/20 07/05/20 07/05/20 08:00 08:32 09:00 Temperature Pulse Rate 83 80 76 Pulse Rate [ 74 From Monitor] Respiratory 18 17 Rate Blood Pressure 164/63 138/41 132/44 O2 Sat by Pulse 100 99 98 Oximetry 07/05/20 07/05/20 07/05/20 10:00 10:01 10:02 Temperature Pulse Rate 73 71 72 Pulse Rate [ From Monitor] Respiratory 21 Rate Blood Pressure 135/47 135/47 135/47 O2 Sat by Pulse 99 Oximetry 07/05/20 07/05/20 07/05/20 10:11 10:26 10:56 Temperature 98.9 F 98.7 F 98.6 F Pulse Rate 77 79 75 Pulse Rate [ From Monitor] Respiratory 18 18 19 Rate Blood Pressure 135/47 157/51 154/54 O2 Sat by Pulse 97 97 98 Oximetry 07/05/20 07/05/20 07/05/20 11:00 11:26 11:36 Temperature 98.9 F Pulse Rate 77 78 79 Pulse Rate [ From Monitor] Respiratory 23 18 25 H Rate Blood Pressure 153/58 155/56 157/51 O2 Sat by Pulse 98 98 98 Oximetry 07/05/20 07/05/20 07/05/20 11:56 12:00 12:23 Temperature 98.5 F 98.5 F 98.6 F Pulse Rate 78 75 78 Pulse Rate [ 78 From Monitor] Respiratory 20 23 26 H Rate Blood Pressure 159/57 152/56 143/49 O2 Sat by Pulse 98 98 98 Oximetry 07/05/20 07/05/20 07/05/20 13:01 13:49 14:00 Temperature Pulse Rate 72 77 80 Pulse Rate [ From Monitor] Respiratory 22 24 Rate Blood Pressure 137/56 151/65 159/64 O2 Sat by Pulse 98 98 Oximetry 07/05/20 07/05/20 07/05/20 15:00 15:16 16:00 Temperature Pulse Rate 73 75 78 Pulse Rate [ 73 From Monitor] Respiratory 22 22 24 Rate Blood Pressure 137/54 137/54 136/53 O2 Sat by Pulse 98 98 97 Oximetry - Labs CBC & Chem 7: 07/05/20 01:12 07/02/20 04:23 Labs: Abnormal lab results 06/26/20 07/04/20 07/05/20 Range/Units 09: 18:00 00:07 RBC (3.65-5.03) M/mm3 Hgb (10.1-14.3) gm/dl Hct (30.3-42.9) % RDW (13.2-15.2) % Seg Neuts % (Manual) (40.0-70.0) % Lymphocytes % (Manual) (13.4-35.0) % Monocytes % (Manual) (0.0-7.3) % Seg Neutrophils # Man (1.8-7.7) K/mm3 Monocytes # (Manual) (0.0-0.8) K/mm3 ABG pH (7.350-7.450) pH Units ABG pO2 (80.0-90.0) mm Hg ABG Base Excess (-2.0-3.0) mmol/L ABG Hemoglobin (12.0-16.0) gm/dl POC Glucose 133 H 121 H (70-105) Crossmatch See Detail 07/05/20 07/05/20 07/05/20 Range/Units 01:12 02:30 12:09 RBC 2.35 L (3.65-5.03) M/mm3 Hgb 6.9 L (10.1-14.3) gm/dl Hct 21.1 L (30.3-42.9) % RDW 16.8 H (13.2-15.2) % Seg Neuts % (Manual) 74.0 H (40.0-70.0) % Lymphocytes % (Manual) 12.0 L (13.4-35.0) % Monocytes % (Manual) 9.0 H (0.0-7.3) % Seg Neutrophils # Man 8.0 H (1.8-7.7) K/mm3 Monocytes # (Manual) 1.0 H (0.0-0.8) K/mm3 ABG pH (7.350-7.450) pH Units ABG pO2 (80.0-90.0) mm Hg ABG Base Excess (-2.0-3.0) mmol/L ABG Hemoglobin (12.0-16.0) gm/dl POC Glucose 132 H (70-105) Crossmatch See Detail 07/05/20 Range/Units 13:05 RBC (3.65-5.03) M/mm3 Hgb (10.1-14.3) gm/dl Hct (30.3-42.9) % RDW (13.2-15.2) % Seg Neuts % (Manual) (40.0-70.0) % Lymphocytes % (Manual) (13.4-35.0) % Monocytes % (Manual) (0.0-7.3) % Seg Neutrophils # Man (1.8-7.7) K/mm3 Monocytes # (Manual) (0.0-0.8) K/mm3 ABG pH 7.32 L (7.350-7.450) pH Units ABG pO2 78.3 L (80.0-90.0) mm Hg ABG Base Excess -2.6 L (-2.0-3.0) mmol/L ABG Hemoglobin 7.3 L (12.0-16.0) gm/dl POC Glucose (70-105) Crossmatch Medications & Allergies - Medications Allergies/Adverse Reactions: Allergies No Known Allergies Allergy (Verified 01/21/20 12:28) Home Medications: Home Medications Medication Instructions Recorded Confirmed Last Taken Type AtorvaSTATin [Lipitor] 20 mg PO QHS 05/12/20 05/29/20 Unknown History lisinopriL [Zestril TAB] 40 mg PO QDAY 05/12/20 05/29/20 Unknown History metFORMIN [Glucophage] 850 mg PO BID 05/12/20 05/29/20 Unknown History Acetaminophen [Acetaminophen TAB] 650 mg PO Q4H PRN tablet 05/13/20 05/29/20 Un known Rx Dicyclomine [Bentyl] 20 mg PO BID #20 tablet 05/13/20 05/29/20 Unknown Rx Famotidine [Pepcid] 20 mg PO BID #30 tablet 05/13/20 05/29/20 Unknown Rx carvediloL [Coreg] 6.25 mg PO BID #60 05/13/20 05/29/20 Unknown Rx Active Medications: Generic Name Dose Route Start Last Admin Trade Name Freq PRN Reason Stop Dose Admin Acetaminophen 650 mg 06/09/20 10:57 06/29/20 21:18 Tylenol FEEDTUBE 650 mg Q6H PRN Administration Fever >101 Amlodipine Besylate 10 mg 06/02/20 11:00 07/05/20 10:01 Amlodipine PO 10 mg DAILY NELSON Administration Lipase/Protease/Amylase 1 each 05/29/20 13:39 06/24/20 22:51 Pancreaze 10,500 Unit FEEDTUBE 1 each PRN PRN Administration For Clogged Feeding Tube Carvedilol 12.5 mg 06/03/20 10:00 07/05/20 10:02 Coreg PO 12.5 mg BID NELSON Administration Clonidine HCl 0.2 mg 06/23/20 22:00 07/05/20 10:02 Catapres PO 0.2 mg Q12HR NELSON Administration Glycopyrrolate 2 mg 06/09/20 14:00 07/05/20 13:48 Glycopyrrolate PO 2 mg TID NELSON Administration Heparin Sodium (Porcine) 5,000 unit 06/30/20 14:00 07/05/20 13:49 Heparin SUB-Q 5,000 unit Q8HR NELSON Administration Hydralazine HCl 50 mg 06/03/20 09:00 07/05/20 13:49 Apresoline PO 50 mg Q8HR NELSON Administration Hydrophilic Ointment 1 applic 05/28/20 13:49 Vaseline Lip Therapy TP Q2HR PRN Dry Lips Vasopressin 20 unit/ Sodium 101 mls @ 9.09 mls/hr 06/26/20 19:00 06/26/20 19:30 Chloride IV 0 units/min TITR NELSON 0 mls/hr Titration Protocol 0.03 UNITS/MIN Norepinephrine 4 mg in 250 mls @ 7.5 mls/hr 06/26/20 19:00 06/26/20 20:06 Levophed Drip 4 Mg/Ns 250 Ml IV 0 mcg/min TITR NELSON 0 mls/hr Titration Protocol 2 MCG/MIN Phenylephrine HCl 100 mg/ 100 mls @ 3 mls/hr 06/26/20 18:15 Sodium Chloride IV TITR NELSON Protocol 50 MCG/MIN Sodium Chloride 500 mls @ 5 mls/hr 06/30/20 22:00 06/30/20 21:42 Nacl 0.9% 500 Ml IV 5 mls/hr DIRECT NELSON Administration Insulin Glargine 10 units 06/08/20 22:00 07/05/20 01:22 Lantus SUB-Q 10 units QHS NELSON Administration Insulin Human Lispro 0 unit 05/29/20 18:00 07/05/20 11:54 Humalog SUB-Q Not Given Q6H [facility] Protocol Labetalol HCl 20 mg 06/03/20 09:00 07/02/20 13:21 Labetalol IV 20 mg Q4H PRN Administration HYPERTENSION Lansoprazole 30 mg 06/05/20 22:00 07/05/20 10:01 Prevacid Solutab FEEDTUBE 30 mg BID NELSON Administration Levetiracetam 500 mg 06/16/20 11:00 07/05/20 10:02 Keppra PO 500 mg BID NELSON Administration Lidocaine HCl 15 ml 06/26/20 20:00 07/05/20 13:49 Magic Mouthwash PO 15 ml TID NELSON Administration Metoclopramide HCl 10 mg 06/10/20 20:00 07/05/20 13:49 Reglan IV 10 mg Q6H NELSON Administration Modafinil 100 mg 07/02/20 20:00 07/05/20 10:02 Provigil PO 100 mg DAILY NELSON Administration Multi-Ingred Cream/Lotion/Oil/Oint 1 applic 05/28/20 13:49 Artificial Tears Ophth Oint OU Q4HR PRN Dry Eye(s) Ondansetron HCl 4 mg 06/02/20 09:00 06/09/20 16:48 Zofran IV 4 mg Q8H PRN Administration Nausea And Vomiting Scopolamine 1 each 06/05/20 14:00 07/05/20 10:03 Transderm-Scop TD 1 each Q3D NELSON Administration Senna 17.6 mg 06/03/20 10:00 07/05/20 10:06 Senokot FEEDTUBE 17.6 mg BID NELSON Administration Simple Syrup 15 ml 05/29/20 13:39 Simple Syrup FEEDTUBE PRN PRN Hypoglycemia Simple Syrup 30 ml 05/29/20 13:39 Simple Syrup FEEDTUBE PRN PRN Hypoglycemia Sodium Bicarbonate 325 mg 05/29/20 13:39 Sodium Bicarbonate FEEDTUBE PRN PRN For Clogged Feeding Tube Sodium Chloride 10 ml 05/28/20 22:00 07/05/20 10:07 Sodium Chloride Flush Syringe 10 Ml IV 10 ml BID NELSON Administration Sodium Chloride 10 ml 05/28/20 19:08 06/16/20 17:50 Sodium Chloride Flush Syringe 10 Ml IV 10 ml PRN PRN Administration LINE FLUSH HEART Score - HEART Score Troponin: Troponin T 0.067 ng/mL (0.00-0.029) H 07/01/20 06:01
[2020-07-06 00:23] LABS: Hemoglobin 7.7 gm/dl (10.1-14.3); Mean Corpuscular HGB Conc 34 % (30-34); Mean Corpuscular Volume 89 fl (79-97); Platelet Count 277 K/mm3 (140-440); Red Blood Count 2.57 M/mm3 (3.65-5.03); Red Cell Distribution Width 16.9 % (13.2-15.2)
[2020-07-06 00:24] LABS: Calcium 7.6 mg/dL (8.4-10.2)
[2020-07-06] MEDS: INSULIN LISPRO 100 UNIT/ML VIAL 3 mL SUB-Q SCH ×3 (00:36→19:16)
[2020-07-06] MEDS: METOCLOPRAMIDE 10 MG/2 ML INJ IV SCH ×4 (02:36→20:13)
[2020-07-06] MEDS: hydrALAZINE 25 MG TAB PO SCH ×3 (05:34→21:50)
[2020-07-06] MEDS: HEPARIN 5,000 UNIT/1 ML VIAL SUB-Q SCH ×3 (05:34→21:51)
--- NOTE | 2020-07-06 08:55 | Progress Note ---
Assessment and Plan Assessment and plan: --Rectal bleeding; Hb dropped from 8.2 -6.9, Transfused 2 units of PRBC Closely monitor H&H, GI following, no plans of endoscopy --Acute blood loss anemia; Received 2 units of PRBC transfusion, Hb improved from 6.9-7.7 Secondary to rectal bleeding. GI following Monitor H&H and transfuse additional as needed -- Acute hypoxemic respiratory failure intubated on admission, extubated on 06/12/20 then placed on high flow o2 patient developed another respiratory arrest on 06/26 - reintubated CC following, consider trach and PEG if unable to wean -- s/p cardiac arrest 07/01/2020,s/p CPR per ACLS protocol, refer to code sheet Intubated on vent, full CODE STATUS s/p Cardiac arrest on admission and on 06/26 Cardiology team on board Conservative management as per cardiology --Febrile illness with sepsis persistently positive for COVID-19 and Klebsiella pneumoniae Continue empiric antibiotics - Continue cefepime 2 g IV every 8 hours for now, ID following, completed treatment for COVID-19 --COVID-19 positive since 05/28/2020 Completed treatment, ID following Repeat test 06/29 still positive --Superficial left cephalic vein DVT/elevated D-dimers[COVID 19] Patient is on heparin drip from 05/29/20 D-dimers improved [id number] s/p heparin drip, Discussed with ID, treated with Eliquis 5 mg twice a day for 1 week[per ID] stop date 06/26/2020 -- Acute metabolic encephalopathy, POA likely from sepsis and s/p cardiac arrest with possible anoxic injury -- Acute renal failure: likely ATN Resolved, avoid nephrotoxins --COVID-19 b/l PNA Completed remdesivir on 06/02 Completed dexamethasone - Last dose 06/07 ID recs appreciated. --Klebsiella pneumonia: Initially completed antibiotics with cefepime Repeat sputum culture still positive for Klebsiella, restarted antibiotic Completed second round of 5 days of cefepime on 07/04/2020 --CHF (congestive heart failure) Cardiology following. Ef 45% -- Coffee ground emesis -Stress ulcers Possible stress ulcers, On PPI H/H again dropped - transfuse GI evaluation -- Hypertension; moderate control Continue amlodipine, coreg, clonidine and hydralazine --Mild LFT elevation: likely from COVID-19. cont to monitor -- DVT prophylaxis Eliquis, SCD to bilateral lower extremities while in bed -- Advance care planning Patient is critically ill with multiple medical problems Poor prognosis, family updated and requesting full code The high probability of a clinically significant, sudden or life threatening deterioration of the [CVS, renal, respiratory, [employer]] system(s) required my full and direct attention, intervention and personal management. The aggregate critical care time was [35] minutes. This time is in addition to time spent performing reported procedures but includes the following: [x] Data Review and interpretation [x] Patient assessment and monitoring of vital signs [x] Documentation [x] Medication orders and management 06/27; Code blue called yesterday. ACLS initiated, Pt found to have Asystolic Arrest with eventual return of perfusing cardiac rhythm. patient reintubated during code, transferred to ICU, called family and updated 06/28: Patient is spiking fever, started on empiric antibiotic, ordered blood urine and sputum culture. We will reconsult ID. Discussed with patient's son in the evening. Family wants to continue full CODE STATUS. Discussed with critical care attending and RN in length. 06/29: Repeat COVID-19 test is positive. Patient remains on ventilator, continue tube feeding diet. Renal function stable, H&H stable. GI recommendation appreciated -no plan for endoscopy now as there is no active bleeding. 06/30: Renal function improving, patient remains positive for COVID. Tolerating tube feeding, wean off vent as tolerated. Patient remains with poor prognosis 07/05; patient has significant drop in H&H, hemoglobin today is 6.9, heme positive stool, type and cross transfuse 2 units of PRBC GI following, no plans of endoscopy 07/06; status post 2 units PRBC transfusion yesterday, Hb improved to 7.7. Monitor H&H transfuse additional PRBC as needed Remains intubated on vent, wean as tolerated and extubate History Interval history: COVID-19 positive patient; I have seen and examined the patient at the bedside in ICU Isolation precautions and PPE protocols strictly followed Patient received 2 units of PRBC yesterday H&H improved from 6.9-7.7 No new episodes of rectal bleeding Patient is orally intubated on ventilatory support Unable to wean Vital signs reviewed Hospitalist Physical - Constitutional Vitals: Temp Pulse Resp BP Pulse Ox 98.8 F 68 16 153/68 99 07/06/20 02:50 07/06/20 07:52 07/06/20 06:01 07/06/20 07:52 07/06/20 07:52 General appearance: Present: mild distress, well-nourished, obese (Morbidly obese), other (On high flow oxygen) - EENT Eyes: Present: PERRL, EOM intact - Neck Neck: Present: supple, normal ROM - Respiratory Respiratory effort: normal Respiratory: bilateral: diminished, negative: rales, rhonchi, wheezing - Cardiovascular Rhythm: regular Heart Sounds: Present: S1 & S2 - Extremities Extremities: no ischemia, No edema Peripheral Pulses: within normal limits - Abdominal General gastrointestinal: soft, non-tender, non-distended, normal bowel sounds - Integumentary Integumentary: Present: clear, warm - Psychiatric Psychiatric: other (Intubated on vent) - Neurologic Neurologic: other (Intubated on vent) HEART Score - HEART Score Troponin: Troponin T 0.067 ng/mL (0.00-0.029) H 07/01/20 06:01 Results - Labs CBC & Chem 7: 07/05/20 23:13 07/05/20 23:13 Labs: Laboratory Last Values WBC 10.6 K/mm3 (4.5-11.0) 07/05/20 23:13 RBC 2.57 M/mm3 (3.65-5.03) L 07/05/20 23:13 Hgb 7.7 gm/dl (10.1-14.3) L 07/05/20 23:13 Hct 23.0 % (30.3-42.9) L 07/05/20 23:13 MCV 89 fl (79-97) 07/05/20 23:13 MCH 30 pg (28-32) 07/05/20 23:13 MCHC 34 % (30-34) 07/05/20 23:13 RDW 16.9 % (13.2-15.2) H 07/05/20 23:13 Plt Count 277 K/mm3 (140-440) 07/05/20 23:13 Lymph % (Auto) 11.0 % (13.4-35.0) L 06/30/20 04:10 [place] % (Auto) 10.8 % (0.0-7.3) H 06/30/20 04:10 Eos % (Auto) 3.9 % (0.0-4.3) 06/30/20 04:10 Baso % (Auto) 0.6 % (0.0-1.8) 06/30/20 04:10 Lymph # 0.9 K/mm3 (1.2-5.4) L 06/30/20 04:10 [place] # 0.9 K/mm3 (0.0-0.8) H 06/30/20 04:10 Eos # 0.3 K/mm3 (0.0-0.4) 06/30/20 04:10 Baso # 0.1 K/mm3 (0.0-0.1) 06/30/20 04:10 Seg Neutrophils % 73.7 % (40.0-70.0) H 06/30/20 04:10 Add Manual Diff Complete 07/05/20 01:12 Total Counted 100 07/05/20 01:12 Seg Neutrophils # 6.2 K/mm3 (1.8-7.7) 06/30/20 04:10 Seg Neuts % (Manual) 74.0 % (40.0-70.0) H 07/05/20 01:12 Band Neutrophils % 0 % 07/05/20 01:12 Lymphocytes % (Manual) 12.0 % (13.4-35.0) L 07/05/20 01:12 Reactive Lymphs % (Man) 0 % 07/05/20 01:12 Monocytes % (Manual) 9.0 % (0.0-7.3) H 07/05/20 01:12 Eosinophils % (Manual) 4.0 % (0.0-4.3) 07/05/20 01:12 Basophils % (Manual) 1.0 % (0.0-1.8) 07/05/20 01:12 Metamyelocytes % 0 % 07/05/20 01:12 Myelocytes % 0 % 07/05/20 01:12 Promyelocytes % 0 % 07/05/20 01:12 Blast Cells % 0 % 07/05/20 01:12 Nucleated RBC % Not Reportable 07/05/20 01:12 Seg Neutrophils # Man 8.0 K/mm3 (1.8-7.7) H 07/05/20 01:12 Band Neutrophils # 0.0 K/mm3 07/05/20 01:12 Lymphocytes # (Manual) 1.3 K/mm3 (1.2-5.4) 07/05/20 01:12 Abs React Lymphs (Man) 0.0 K/mm3 07/05/20 01:12 Monocytes # (Manual) 1.0 K/mm3 (0.0-0.8) H 07/05/20 01:12 Eosinophils # (Manual) 0.4 K/mm3 (0.0-0.4) 07/05/20 01:12 Basophils # (Manual) 0.1 K/mm3 (0.0-0.1) 07/05/20 01:12 Metamyelocytes # 0.0 K/mm3 07/05/20 01:12 Myelocytes # 0.0 K/mm3 07/05/20 01:12 Promyelocytes # 0.0 K/mm3 07/05/20 01:12 Blast Cells # 0.0 K/mm3 07/05/20 01:12 WBC Morphology Not Reportable 07/05/20 01:12 Hypersegmented Neuts Not Reportable 07/05/20 01:12 Hyposegmented Neuts Not Reportable 07/05/20 01:12 Hypogranular Neuts Not Reportable 07/05/20 01:12 Smudge Cells Not Reportable 07/05/20 01:12 Toxic Granulation Not Reportable 07/05/20 01:12 Toxic Vacuolation Not Reportable 07/05/20 01:12 Dohle Bodies Not Reportable 07/05/20 01:12 Pelger-Huet Anomaly Not Reportable 07/05/20 01:12 Sanjuanita Rods Not Reportable 07/05/20 01:12 Platelet Estimate Consistent w auto 07/05/20 01:12 Clumped Platelets Not Reportable 07/05/20 01:12 Plt Clumps, EDTA Not Reportable 07/05/20 01:12 Large Platelets Not Reportable 07/05/20 01:12 Giant Platelets Not Reportable 07/05/20 01:12 Platelet Satelliting Not Reportable 07/05/20 01:12 Plt Morphology Comment Not Reportable 07/05/20 01:12 RBC Morphology Not Reportable 07/05/20 01:12 Dimorphic RBCs Not Reportable 07/05/20 01:12 Polychromasia Few 07/05/20 01:12 Hypochromasia Few 07/05/20 01:12 Poikilocytosis Not Reportable 07/05/20 01:12 Anisocytosis Few 07/05/20 01:12 Microcytosis Not Reportable 07/05/20 01:12 Macrocytosis Few 07/05/20 01:12 Spherocytes Not Reportable 07/05/20 01:12 Pappenheimer Bodies Not Reportable 07/05/20 01:12 Sickle Cells Not Reportable 07/05/20 01:12 Target Cells Few 07/05/20 01:12 Tear Drop Cells Not Reportable 07/05/20 01:12 Ovalocytes Not Reportable 07/05/20 01:12 Helmet Cells Not Reportable 07/05/20 01:12 [place] Bodies Not Reportable 07/05/20 01:12 [place] Rings Not Reportable 07/05/20 01:12 Julia Cells Not Reportable 07/05/20 01:12 Bite Cells Not Reportable 07/05/20 01:12 Crenated Cell Not Reportable 07/05/20 01:12 Elliptocytes Not Reportable 07/05/20 01:12 Acanthocytes (Spur) Not Reportable 07/05/20 01:12 Rouleaux Not Reportable 07/05/20 01:12 Hemoglobin C Crystals Not Reportable 07/05/20 01:12 Schistocytes Rare 07/05/20 01:12 Malaria parasites Not Reportable 07/05/20 01:12 Kev Bodies Not Reportable 07/05/20 01:12 Hem Pathologist Commnt No 07/05/20 01:12 PT 14.2 Sec. (12.2-14.9) 05/29/20 15:10 INR 1.08 (0.87-1.13) 05/29/20 15:10 APTT 27.2 Sec. (24.2-36.6) 05/29/20 15:10 D-Dimer 2310.15 ng/mlDDU (0-234) H 06/29/20 14:45 Heparin Anti-Xa Level 0.34 U.I./ml (0.3-0.7) 06/19/20 10:46 ABG pH 7.32 pH Units (7.350-7.450) L 07/05/20 13:05 POC ABG pCO2 35.8 mmHg (32.0-48.0) 07/01/20 05:02 ABG pCO2 47.0 mm Hg 07/05/20 13:05 ABG Oxyhemoglobin 92.6 (94-98) L 06/23/20 12:34 POC ABG pO2 90.8 mmHg (83-108) 07/01/20 05:02 ABG pO2 78.3 mm Hg (80.0-90.0) L 07/05/20 13:05 POC ABG HCO3 22.1 07/01/20 05:02 ABG HCO3 23.4 mmol/L (20.0-26.0) 07/05/20 13:05 ABG O2 Saturation 96.1 % (95.0-99.0) 07/05/20 13:05 ABG O2 Content 0.3 (0.0-44) 07/05/20 13:05 POC ABG Base Excess -2.3 07/01/20 05:02 ABG Base Excess -2.6 mmol/L (-2.0-3.0) L 07/05/20 13:05 ABG Hemoglobin 7.3 gm/dl (12.0-16.0) L 07/05/20 13:05 ABG Carboxyhemoglobin 1.7 % (0.0-5.0) 07/05/20 13:05 ABG Methemoglobin 0.2 % (0.0-1.5) 07/05/20 13:05 VBG pH 7.152 (7.320-7.420) L* 05/28/20 13:47 Carboxyhemoglobin 0.5 (0.5-1.5) 06/23/20 12:34 Oxyhemoglobin 97.4 % (95.0-99.0) 07/05/20 13:05 FiO2 30 % 07/05/20 13:05 Sodium 138 mmol/L (137-145) 07/05/20 23:13 Potassium 5.0 mmol/L (3.6-5.0) D 07/05/20 23:13 Chloride 105.2 mmol/L (98-107) 07/05/20 23:13 Carbon Dioxide 20 mmol/L (22-30) L 07/05/20 23:13 Anion Gap 18 mmol/L 07/05/20 23:13 BUN 80 mg/dL (7-17) H 07/05/20 23:13 Creatinine 2.4 mg/dL (0.6-1.2) H D 07/05/20 23:13 Estimated GFR 20 ml/min 07/05/20 23:13 BUN/Creatinine Ratio 33 % 07/05/20 23:13 Glucose 124 mg/dL (65-100) H 07/05/20 23:13 POC Glucose 93 (70-105) 07/06/20 05:52 Lactic Acid 0.60 mmol/L (0.7-2.0) L 06/27/20 05:00 Calcium 7.6 mg/dL (8.4-10.2) L 07/05/20 23:13 Ferritin 223.6 ng/mL (10.0-200.0) H 06/29/20 14:45 Total Bilirubin 0.20 mg/dL (0.1-1.2) 06/28/20 09:47 AST 24 units/L (5-40) 06/28/20 09:47 ALT 21 units/L (7-56) 06/28/20 09:47 Alkaline Phosphatase 113 units/L (35-129) 06/28/20 09:47 Lactate Dehydrogenase 367 units/L (91-180) H 06/29/20 14:45 C-Reactive Protein 3.60 mg/dL (0.00-1.30) H 06/29/20 14:45 Total Protein 5.0 g/dL (6.3-8.2) L 06/28/20 09:47 Albumin 2.1 g/dL (3.9-5) L 06/28/20 09:47 Albumin/Globulin Ratio 0.7 % 06/28/20 09:47 Total Creatine Kinase 300 units/L (30-135) H 07/01/20 06:01 CK-MB (CK-2) 2.0 ng/mL (0.0-4.0) 07/01/20 06:01 CK-MB (CK-2) Rel Index 0.6 (0-4) 07/01/20 06:01 Troponin T 0.067 ng/mL (0.00-0.029) H 07/01/20 06:01 Triglycerides 142 mg/dL (2-149) 07/01/20 06:01 Cholesterol 137 mg/dL (50-199) 07/01/20 06:01 LDL Cholesterol Direct 62 mg/dL (50-130) 07/01/20 06:01 HDL Cholesterol 61 mg/dL (40-59) H 07/01/20 06:01 Cholesterol/HDL Ratio 2.24 % 07/01/20 06:01 Procalcitonin 2.45 ng/mL (<0.15) 06/29/20 14:45 Urine Color Yellow (Yellow) 06/06/20 04:00 Urine Turbidity Cloudy (Clear) 06/06/20 04:00 Urine pH 5.0 (5.0-7.0) 06/06/20 04:00 Ur Specific [place] 1.012 (1.003-1.030) 06/06/20 04:00 Urine Protein 100 mg/dl mg/dL (Negative) 06/06/20 04:00 Urine Glucose (UA) 50 mg/dL (Negative) 06/06/20 04:00 Urine Ketones Neg mg/dL (Negative) 06/06/20 04:00 Urine Blood Sm (Negative) 06/06/20 04:00 Urine Nitrite Neg (Negative) 06/06/20 04:00 Urine Bilirubin Neg (Negative) 06/06/20 04:00 Urine Urobilinogen < 2.0 mg/dL (<2.0) 06/06/20 04:00 Ur Leukocyte Esterase Neg (Negative) 06/06/20 04:00 Urine WBC (Auto) 15.0 /HPF (0.0-6.0) H 06/06/20 04:00 Urine RBC (Auto) 23.0 /HPF (0.0-6.0) 06/06/20 04:00 U Epithel Cells (Auto) 8.0 /HPF (0-13.0) 06/06/20 04:00 Urine Bacteria (Auto) 2+ /HPF (Negative) 06/06/20 04:00 Amorphous Crystals 1+ 06/06/20 04:00 Hyaline Casts 16 /LPF 06/06/20 04:00 Urine Mucus 2+ /HPF 06/06/20 04:00 Urine Yeast (Budding) 2+ /HPF 06/03/20 Unknown Urine Creatinine 82.2 mg/dL (0.1-20.0) H 06/06/20 04:00 Urine Sodium 20 mmol/L 06/06/20 04:00 Urine Total Protein 196 mg/dL (5-11.8) H 06/06/20 04:00 Nasal Screen MRSA (PCR) Negative (Negative) 06/29/20 08:30 Coronavirus (PCR) Positive (Negative) A 06/29/20 Unknown Blood Type A POSITIVE 07/05/20 02:30 Antibody Screen Negative 07/05/20 02:30 Crossmatch See Detail 07/05/20 02:30 - Diagnostic Impressions Diagnostic Impressions: Echocardiogram Limited Views 05/29/20 13:52 Transthoracic Echocardiogram Indication: Pulm Embolus BP: 169/76 HR: 85 Conclusions *Limited study for RV size post cardiopulmonar arrest. *RV is only slightly dilated, no significant difference from prior echo 05/13/2020. *Global left ventricular systolic function is at the lower limits of normal. *The estimated ejection fraction is 45-50%. *Mild to moderate concentric left ventricular hypertrophy is observed. *The left and right atria are both mild to moderately dilated. Findings Left Ventricle: The left ventricular chamber size is mildly dilated. Mild to moderate concentric left ventricular hypertrophy is observed. Global left ventricular systolic function is at the lower limits of normal. The estimated ejection fraction is 45-50%. Left Atrium: The left atrium is mild to moderately dilated. Right Ventricle: The right ventricle is slightly dilated. Right Atrium: The right atrium is mild to moderately dilated. Aortic Valve: The aortic valve leaflets are moderately thickened. Mitral Valve: There is mitral annular calcification. The mitral valve leaflets are moderately thickened. Tricuspid Valve: The tricuspid valve leaflets are mildly thickened. Pericardium: A trivial pericardial effusion is visualized. NDUM: 05/29/20 1808 Amended Report Transthoracic Echocardiogram Indication: Pulm Embolus BP: 169/76 HR: 85 Conclusions *Limited study for RV size post cardiopulmonary arrest. *RV is only slightly dilated, no significant difference from prior echo 05/13/2020. *Global left ventricular systolic function is at the lower limits of normal. *The estimated ejection fraction is 45-50%. *Mild to moderate concentric left ventricular hypertrophy is observed. *The left and right atria are both mild to moderately dilated. Findings Left Ventricle: The left ventricular chamber size is mildly dilated. Mild to moderate concentric left ventricular hypertrophy is observed. Global left ventricular systolic function is at the lower limits of normal. The estimated ejection fraction is 45-50%. Left Atrium: The left atrium is mild to moderately dilated. Right Ventricle: The right ventricle is slightly dilated. Right Atrium: The right atrium is mild to moderately dilated. Aortic Valve: The aortic valve leaflets are moderately thickened. Mitral Valve: There is mitral annular calcification. The mitral valve leaflets are moderately thickened. Tricuspid Valve: The tricuspid valve leaflets are mildly thickened. Pericardium: A trivial pericardial effusion is visualized. Helm/IV: Voiding Method Indwelling Catheter IV Catheter Type [Left Wrist] INT / Saline Lock IV Catheter Type [Left Upper Mid-line arm] IV Catheter Type [Right CVL Internal Jugular] IV Catheter Type [Right Hand] INT / Saline Lock IV Catheter Type [Right Wrist] Not found on patient IV Catheter Type [Left Hand] INT / Saline Lock IV Catheter Type [Left INT / Saline Lock Antecubital] IV Catheter Type [Right Peripheral IV Forearm] IV Catheter Type [Left Leg] Intra-osseous Active Medications - Current Medications Current Medications: Generic Name Dose Route Start Last Admin Trade Name Freq PRN Reason Stop Dose Admin Acetaminophen 650 mg 06/09/20 10:57 06/29/20 21:18 Tylenol FEEDTUBE 650 mg Q6H PRN Administration Fever >101 Amlodipine Besylate 10 mg 06/02/20 11:00 07/05/20 10:01 Amlodipine PO 10 mg DAILY NELSON Administration Lipase/Protease/Amylase 1 each 05/29/20 13:39 06/24/20 22:[address] 10,500 Unit FEEDTUBE 1 each PRN PRN Administration For Clogged Feeding Tube Carvedilol 12.5 mg 06/03/20 10:00 07/05/20 21:46 Coreg PO 12.5 mg BID NELSON Administration Clonidine HCl 0.2 mg 06/23/20 22:00 07/05/20 21:29 Catapres PO 0.2 mg Q12HR NELSON Administration Glycopyrrolate 2 mg 06/09/20 14:00 07/05/20 20:19 Glycopyrrolate PO 2 mg TID NELSON Administration Heparin Sodium (Porcine) 5,000 unit 06/30/20 14:00 07/06/20 05:34 Heparin SUB-Q 5,000 unit Q8HR NELSON Administration Hydralazine HCl 50 mg 06/03/20 09:00 07/06/20 05:34 Apresoline PO 50 mg Q8HR NELSON Administration Hydrophilic Ointment 1 applic 05/28/20 13:49 Vaseline Lip Therapy TP Q2HR PRN Dry Lips Vasopressin 20 unit/ Sodium 101 mls @ 9.09 mls/hr 06/26/20 19:00 06/26/20 19:30 Chloride IV 0 units/min TITR NELSON 0 mls/hr Titration Protocol 0.03 UNITS/MIN Norepinephrine 4 mg in 250 mls @ 7.5 mls/hr 06/26/20 19:00 06/26/20 20:06 Levophed Drip 4 Mg/Ns 250 Ml IV 0 mcg/min TITR NELSON 0 mls/hr Titration Protocol 2 MCG/MIN Phenylephrine HCl 100 mg/ 100 mls @ 3 mls/hr 06/26/20 18:15 Sodium Chloride IV TITR NELSON Protocol 50 MCG/MIN Sodium Chloride 500 mls @ 5 mls/hr 06/30/20 22:00 06/30/20 21:42 Nacl 0.9% 500 Ml IV 5 mls/hr DIRECT NELSON Administration Insulin Glargine 10 units 06/08/20 22:00 07/05/20 21:29 Lantus SUB-Q 10 units QHS NELSON Administration Insulin Human Lispro 0 unit 05/29/20 18:00 07/06/20 06:22 Humalog SUB-Q Not Given Q6H NELSON Protocol Labetalol HCl 20 mg 06/03/20 09:00 07/02/20 13:21 Labetalol IV 20 mg Q4H PRN Administration HYPERTENSION Lansoprazole 30 mg 06/05/20 22:00 07/05/20 21:29 Prevacid Solutab FEEDTUBE 30 mg BID NELSON Administration Levetiracetam 500 mg 06/16/20 11:00 07/05/20 21:29 Keppra PO 500 mg BID NELSON Administration Lidocaine HCl 15 ml 06/26/20 20:00 07/05/20 20:19 Magic Mouthwash PO 15 ml TID NELSON Administration Metoclopramide HCl 10 mg 06/10/20 20:00 07/06/20 02:36 Reglan IV 10 mg Q6H NELSON Administration Modafinil 100 mg 07/02/20 20:00 07/05/20 10:02 Provigil PO 100 mg DAILY NELSON Administration Multi-Ingred Cream/Lotion/Oil/Oint 1 applic 05/28/20 13:49 Artificial Tears Ophth Oint OU Q4HR PRN Dry Eye(s) Ondansetron HCl 4 mg 06/02/20 09:00 06/09/20 16:48 Zofran IV 4 mg Q8H PRN Administration Nausea And Vomiting Scopolamine 1 each 06/05/20 14:00 07/05/20 10:03 Transderm-Scop TD 1 each Q3D NELSON Administration Senna 17.6 mg 06/03/20 10:00 07/05/20 21:28 Senokot FEEDTUBE 17.6 mg BID NELSON Administration Simple Syrup 15 ml 05/29/20 13:39 Simple Syrup FEEDTUBE PRN PRN Hypoglycemia Simple Syrup 30 ml 05/29/20 13:39 Simple Syrup FEEDTUBE PRN PRN Hypoglycemia Sodium Bicarbonate 325 mg 05/29/20 13:39 Sodium Bicarbonate FEEDTUBE PRN PRN For Clogged Feeding Tube Sodium Chloride 10 ml 05/28/20 22:00 07/05/20 21:30 Sodium Chloride Flush Syringe 10 Ml IV 10 ml BID NELSON Administration Sodium Chloride 10 ml 05/28/20 19:08 06/16/20 17:50 Sodium Chloride Flush Syringe 10 Ml IV 10 ml PRN PRN Administration LINE FLUSH Nutrition/Malnutrition Assess - Dietary Evaluation Nutrition/Malnutrition Findings: Nutrition Notes Start: 05/29/20 11:45 Freq: Status: Active Protocol: Document 07/03/20 11:16 [email or web address] (Rec: 07/03/20 12:21 [email or web address]) Co-Sign 07/03/20 11:16 LP Nutrition Notes Initial or Follow up Reassessment Current Diagnosis Acute Kidney Injury,Diabetes, Heart Failure,Respiratory Failure Other Pertinent Diagnosis COVID-19 (+) Current Diet Glucerna 1.2 at 55ml/hr Labs/Tests Reviewed Pertinent Medications Reviewed Height 5 ft 6 in Weight 123 kg [place] Body Weight (kg) 59.09 BMI 43.7 Weight Status Morbidly Obese Subjective/Other Information F/U for TF tolerance, rate, water. Per RN, Pt TF stopped for 1 hr yesterday d/t high residuals. TF running at 50ml/ hr. Percent of energy/protein needs met: 90%/48% Burn Absent Trauma Absent Current % PO Negligible Minimum of two criteria No physical signs of malnutrition Fluid Accumulation Mild (non-severe) #1 Nutrition Diagnosis Inadequate oral intake Diagnosis Progress(for reassessment Continues documentation) Is patient on ventilator? Yes Is Patient Ambulatory and/or Out of Bed No REE-([place]-St. Jeor-confined to bed) 2172.576 Kcal/Kg value to use for calculation 13 Approximate Energy Requirements Using 1599 kcal/Kg Calculation Used for Recommendations Kcal/kg Additional Notes Protein needs up to 148g (up to 2.5g/kg IBW) Fluid needs 1ml/kcal Nutrition Intervention Change Diet Order: Continue Nutrition Support: Glucerna 1.2 at 55ml/hr Flush 100ml q4h Kcal 1,584 Protein (gm) 79 Fluid (mL) 1,062 Goal #1 TF tolerance Goal #2 TF to meet at least 65%-70% energy and 80% pro needs Anticipated Discharge Needs: Unable to determine at this time Follow-Up By: 07/06/20 Additional Comments F/U TF tolerance
[2020-07-06] MEDS: SENNOSIDES ORAL LIQD 8.8 MG/5 ML ORAL LIQD FEEDTUBE SCH ×2 (10:20→21:51)
--- NOTE | 2020-07-06 10:57 | Progress Note ---
Assessment and Plan Cultures: Coronavirus PCR 05/28/2020: Positive 05/28/2020 blood culture: no growth 05/28/2020 tracheal aspirate: Usual respiratory bobo 05/28/2020 urine culture: No growth 06/03/2020 urine culture: No growth 06/09/2020 tracheal aspirate Klebsiella pneumoniae 06/28/2020 sputum culture positive for Klebsiella 06/28/2020 blood cultures no growth today 06/29/2020 COV2 PCR positive A/P: 64-year-old female with hypertension, diastolic CHF, pulmonary hypertension, diabetes, obesity hypoventilation syndrome, recent COVID pneumonia, was admitted to the emergency room after she called EMS due to difficulty breathing. On the way to the hospital, patient developed cardiac arrest and was treated as per ACLS protocol: #Cardiac arrest on 07/01/2020 #Sepsis on 06/27/2020: Resolved. After asystolic cardiac arrest on 06/26/2028. #Bilateral pneumonia: Secondary to COVID-19. Completed 5 days of IV Remdesivir 06/02/2020. ? Healthcare associated pneumonia, repeat sputum Klebsiella. Chest x-ray worsening infiltrates. Completed abx. #Acute hypoxic respiratory failure: On mechanical ventilation. Minimal vent settings. #HF: EF 45-50% #Mild LFT elevation: likely from COVID-19. #Severe constipation: Status post manual disimpaction #Encephalopathy: ? Post cardiac arrest. Recs: -Completed cefepime 7 days on 07/03/2020. Continue off antibiotics -F/U SARS-CoV-2 PCR cycle threshold (Ct) value, the odds of positive culture/infectivity from COVID-[address] value >34 indicating no meaningful or transmissible disease -poor prognosis Mallory Wright MD, FACP [facility] ([facility] C: [phone] O: [phone] F: [phone] Subjective Date of service: 07/06/20 Principal diagnosis: Ac hypoxemic resp failure; COVID-19; pneumonia; CHF; Pulm HTN; OHS; DM II Interval history: Remains intubated, on the vent. No fever. Vent settings are minimal. Objective - Exam Narrative Exam: Physical Exam (reviewed in chart due to PPE conservation) Constitutional: intubated, sedated, on the vent Head, Ears, Nose: normocephalic, atraumatic Eyes: limited due to PPE conservation strategy Neck: intubated Oral: intubated Cardiovascular: limited due to PPE conservation strategy Respiratory: limited due to PPE conservation strategy GI: limited due to PPE conservation strategy Musculoskeletal: limited due to PPE conservation strategy Skin: limited due to PPE conservation strategy Hem/Lymphatic: limited due to PPE conservation strategy Psych: no agitation Neurological: sedated, intubated, on the vent, exam limited - Constitutional Vitals: Vital Signs Temp Pulse Resp BP Pulse Ox 98.8 F 73 19 159/66 99 07/06/20 02:50 07/06/20 09:00 07/06/20 09:00 07/06/20 09:00 07/06/20 09:00 Temperature -Last 24 Hours Temperature 98.8 F Temperature 98.9 F Temperature 99.3 F Temperature 98.6 F Temperature 98.6 F Temperature 98.5 F Temperature 98.5 F Temperature 98.5 F Temperature 98.9 F Temperature 98.6 F - Labs CBC & Chem 7: 07/05/20 23:13 07/05/20 23:13 Labs: Abnormal lab results 07/05/20 07/05/20 07/05/20 Range/Units 02:30 12:09 13:05 RBC (3.65-5.03) M/mm3 Hgb (10.1-14.3) gm/dl Hct (30.3-42.9) % RDW (13.2-15.2) % ABG pH 7.32 L (7.350-7.450) pH Units ABG pO2 78.3 L (80.0-90.0) mm Hg ABG Base Excess -2.6 L (-2.0-3.0) mmol/L ABG Hemoglobin 7.3 L (12.0-16.0) gm/dl Carbon Dioxide (22-30) mmol/L BUN (7-17) mg/dL Creatinine (0.6-1.2) mg/dL Glucose (65-100) mg/dL POC Glucose 132 H (70-105) Calcium (8.4-10.2) mg/dL Crossmatch See Detail 07/05/20 07/05/20 07/05/20 Range/Units 18:04 23:13 23:13 RBC 2.57 L (3.65-5.03) M/mm3 Hgb 7.7 L (10.1-14.3) gm/dl Hct 23.0 L (30.3-42.9) % RDW 16.9 H (13.2-15.2) % ABG pH (7.350-7.450) pH Units ABG pO2 (80.0-90.0) mm Hg ABG Base Excess (-2.0-3.0) mmol/L ABG Hemoglobin (12.0-16.0) gm/dl Carbon Dioxide 20 L (22-30) mmol/L BUN 80 H (7-17) mg/dL Creatinine 2.4 H D (0.6-1.2) mg/dL Glucose 124 H (65-100) mg/dL POC Glucose 160 H (70-105) Calcium 7.6 L (8.4-10.2) mg/dL Crossmatch 07/05/20 Range/Units 23:43 RBC (3.65-5.03) M/mm3 Hgb (10.1-14.3) gm/dl Hct (30.3-42.9) % RDW (13.2-15.2) % ABG pH (7.350-7.450) pH Units ABG pO2 (80.0-90.0) mm Hg ABG Base Excess (-2.0-3.0) mmol/L ABG Hemoglobin (12.0-16.0) gm/dl Carbon Dioxide (22-30) mmol/L BUN (7-17) mg/dL Creatinine (0.6-1.2) mg/dL Glucose (65-100) mg/dL POC Glucose 121 H (70-105) Calcium (8.4-10.2) mg/dL Crossmatch
[2020-07-06] MEDS: MODAFINIL 100 MG TAB PO SCH (11:59)
[2020-07-06] MEDS: GLYCOPYRROLATE 2 MG TAB PO SCH ×3 (11:59→20:13)
[2020-07-06] MEDS: LANSOPRAZOLE 30 MG SOLUTAB FEEDTUBE SCH ×2 (11:59→21:49)
[2020-07-06] MEDS: amLODIPine 10 MG TAB PO SCH (12:00)
[2020-07-06] MEDS: cloNIDine 0.2 MG TAB PO SCH ×2 (12:00→21:50)
[2020-07-06] MEDS: levETIRAcetam 500 MG/5 ML ORAL LIQD PO SCH ×2 (12:00→21:49)
[2020-07-06] MEDS: carvediloL 12.5 MG TAB PO SCH ×2 (12:00→21:50)
--- NOTE | 2020-07-06 13:17 | Progress Note ---
Assessment and Plan Acute hypoxemic respiratory failure on MVS Coronavirus-19 infection. Bilateral pulmonary infiltrates, bilateral pneumonia plus likely element of Pulmonary edema. Bilateral pulmonary edema. Bilateral pleural effusions. History of congestive heart failure. Morbid obesity. History of pulmonary hypertension. History of hypertension. Diabetes. Obesity hypoventilation syndrome. Elevated serum inflammatory markers to include D-dimers and LDH levels. Hyperkalemia at presentation. Metabolic acidosis. Oropharyngeal dysphagia. (AMS is a rate limiting factor to safe extubation; tracheostomy may ultimately be required if persistent) - get urine lytes to calculate FENA +/- volume resuscitation - consider nephrology re-consult if no improvement in AVANI - continue care as below otherwise while following mental status; - s/p PRBC transfusion - GI evaluation ongoing - continue Modafinil re: lethargy / somnolence - continue daytime PSV trials as tolerated - advance tube feeds to goal rate as tolerated (if OK with GI team) - continue Reglan - Daily SAT and SBT assessment as tolerated - continue to wean supplemental oxygen for target O2 sat's > 90% acutely - VAP bundle addressed - continue lung protective strategies - continue bronchodilators with pulmonary hygiene per RT - wean per pulmonary driven protocols otherwise - continue accuchecks resumed with glycemic control per SSI (While critically ill target blood glucose of 140-180 mg/dL; avoid hypoglycemia) - sedation prn for target RASS 0 to -1 - continue to avoid benzodiazepine's, reduce the possibility of delirium - completed AB's per ID rec's - prn analgesia per CPOT score - Maintenance of sleep-wake cycle, avoid delirium - continue enteral nutritional support at goal rate as tolerated - G.I. & VTE prophylaxis with heparin & famotidine - PT/OT/ROM exercises - continue mobility protocols for pressure ulcer prophylaxis - Monitor hemodynamics closely - continue other care per attending / other consultants - discharge planning ongoing concurrently (LTAC evaluation is appropriate) .... Re-evaluate in am & prn CONDITION: CRITICAL PROGNOSIS: GUARDED CODE STATUS: FULL CODE The high probability of a clinically significant, sudden or life-threatening deterioration of the [respiratory, cardiovascular, GI & neurologic] system(s) required my full and direct attention, intervention and personal management. The aggregate critical care time was [35] minutes without overlap. Time includes spent on; [x] Data Review and interpretation [x] Patient assessment and monitoring of vital signs [x] Documentation [x] Medication orders and management Subjective Date of service: 07/06/20 Principal diagnosis: Ac hypoxemic resp failure; COVID-19; pneumonia; CHF; Pulm HTN; OHS; DM II Interval history: Patient is seen today for: Ac hypoxemic resp failure; Coronavirus-19 infection; pneumonia; Pulmonary edema; Bilateral pleural effusions; CHF; Morbid obesity; pulmonary hypertension; OHS; DM II Seen and examined at bedside; 24hour events reviewed; nursing and respiratory care staff consulted; no adverse overnight events reported to me; resting peacefully in bed; remains on MVS; azotemia is worse; non-oliguric; AMS is persistent but tolerating SBT's a little better Objective Vital Signs - 12hr 07/06/20 07/06/20 07/06/20 02:01 02:50 03:00 Temperature 98.8 F Pulse Rate 71 66 Pulse Rate [ From Monitor] Respiratory 18 16 Rate Blood Pressure 151/61 135/53 O2 Sat by Pulse 100 Oximetry 07/06/20 07/06/20 07/06/20 04:00 04:37 05:01 Temperature Pulse Rate 70 71 76 Pulse Rate [ 71 From Monitor] Respiratory 16 19 Rate Blood Pressure 153/67 167/68 O2 Sat by Pulse 99 100 98 Oximetry 07/06/20 07/06/20 07/06/20 05:34 06:01 07:01 Temperature Pulse Rate 65 70 69 Pulse Rate [ From Monitor] Respiratory 16 18 Rate Blood Pressure 143/55 150/57 159/61 O2 Sat by Pulse 99 99 Oximetry 07/06/20 07/06/20 07/06/20 07:52 08:00 08:01 Temperature Pulse Rate 68 70 69 Pulse Rate [ From Monitor] Respiratory 18 19 Rate Blood Pressure 153/68 173/64 153/68 O2 Sat by Pulse 99 99 99 Oximetry 07/06/20 07/06/20 07/06/20 09:00 11:50 12:00 Temperature Pulse Rate 73 76 75 Pulse Rate [ From Monitor] Respiratory 19 19 Rate Blood Pressure 159/66 168/68 O2 Sat by Pulse 99 99 Oximetry Constitutional: no acute distress, other (elderly looking obese female on HFNC with mildly increased respiratory effort at rest on MVS) Eyes: non-icteric ENT: oropharynx dry, other (ETT 23-24 cm AYAN) Neck: supple, no lymphadenopathy, no JVD, other (large neck circumference) Effort: mildly labored Ascultation: Bilateral: diminished breath sounds, rhonchi (scant) Percussion: Bilateral: not dull Cardiovascular: regular rate and rhythm, other (S1,S2) Gastrointestinal: normoactive bowel sounds, soft, non-tender, non-distended Integumentary: normal Extremities: no cyanosis, no edema, pink and warm, pulses normal, no ischemia or petechiae Neurologic: pupils equal and round, unable to assess, other (lethargic to obtunded) Psychiatric: other (unable to assess re: AMS) CBC and BMP: 07/07/20 04:15 07/06/20 14:48 ABG, PT/INR, D-dimer: ABG ABG pH 7.32 pH Units (7.350-7.450) L 07/05/20 13:05 POC ABG pCO2 35.8 mmHg (32.0-48.0) 07/01/20 05:02 ABG pCO2 47.0 mm Hg 07/05/20 13:05 POC ABG pO2 90.8 mmHg (83-108) 07/01/20 05:02 ABG pO2 78.3 mm Hg (80.0-90.0) L 07/05/20 13:05 POC ABG HCO3 22.1 07/01/20 05:02 ABG O2 Saturation 96.1 % (95.0-99.0) 07/05/20 13:05 PT/INR, D-dimer PT 14.2 Sec. (12.2-14.9) 05/29/20 15:10 INR 1.08 (0.87-1.13) 05/29/20 15:10 D-Dimer 2310.15 ng/mlDDU (0-234) H 06/29/20 14:45 Abnormal lab findings: Abnormal Labs 05/28/20 05/28/20 05/28/20 13:29 13:47 13:47 WBC RBC Hgb Hct MCHC RDW 15.3 H Lymph % (Auto) [place] % (Auto) Eos % (Auto) Lymph # [place] # Seg Neutrophils % Seg Neuts % (Manual) Lymphocytes % (Manual) Seg Neutrophils # Seg Neutrophils # Man Lymphocytes # (Manual) Monocytes % (Manual) Eosinophils % (Manual) Monocytes # (Manual) Eosinophils # (Manual) D-Dimer Heparin Anti-Xa Level ABG pH POC ABG pCO2 POC ABG pO2 ABG pO2 ABG HCO3 ABG O2 Saturation ABG Base Excess ABG Hemoglobin ABG Oxyhemoglobin VBG pH Oxyhemoglobin Sodium Potassium 6.6 H* Chloride 109.2 H Carbon Dioxide 17 L BUN 29 H Creatinine 1.3 H Glucose 265 H POC Glucose 248 H Lactic Acid Calcium 8.1 L Ferritin AST 63 H Alkaline Phosphatase Lactate Dehydrogenase Total Creatine Kinase 301 H CK-MB (CK-2) 4.3 H C-Reactive Protein Total Protein 5.4 L Albumin 2.6 L Troponin T HDL Cholesterol Urine WBC (Auto) Urine Creatinine Urine Total Protein Coronavirus (PCR) Crossmatch 05/28/20 05/28/20 05/28/20 13:47 13:47 14:46 WBC RBC Hgb Hct MCHC RDW Lymph % (Auto) [place] % (Auto) Eos % (Auto) Lymph # [place] # Seg Neutrophils % Seg Neuts % (Manual) Lymphocytes % (Manual) Seg Neutrophils # Seg Neutrophils # Man Lymphocytes # (Manual) Monocytes % (Manual) Eosinophils % (Manual) Monocytes # (Manual) Eosinophils # (Manual) D-Dimer Heparin Anti-Xa Level ABG pH POC ABG pCO2 POC ABG pO2 ABG pO2 ABG HCO3 ABG O2 Saturation ABG Base Excess ABG Hemoglobin ABG Oxyhemoglobin VBG pH 7.152 L* Oxyhemoglobin Sodium Potassium 7.2 H* Chloride Carbon Dioxide BUN Creatinine Glucose POC Glucose Lactic Acid 3.40 H* Calcium Ferritin AST Alkaline Phosphatase Lactate Dehydrogenase Total Creatine Kinase CK-MB (CK-2) C-Reactive Protein Total Protein Albumin Troponin T HDL Cholesterol Urine WBC (Auto) Urine Creatinine Urine Total Protein Coronavirus (PCR) Crossmatch 05/28/20 05/28/20 05/28/20 15:33 15:33 15:51 WBC RBC Hgb Hct MCHC RDW Lymph % (Auto) [place] % (Auto) Eos % (Auto) Lymph # [place] # Seg Neutrophils % Seg Neuts % (Manual) Lymphocytes % (Manual) Seg Neutrophils # Seg Neutrophils # Man Lymphocytes # (Manual) Monocytes % (Manual) Eosinophils % (Manual) Monocytes # (Manual) Eosinophils # (Manual) D-Dimer 8780.43 H Heparin Anti-Xa Level ABG pH 7.284 L POC ABG pCO2 POC ABG pO2 ABG pO2 273.0 H ABG HCO3 ABG O2 Saturation 99.4 H ABG Base Excess -6.1 L ABG Hemoglobin 17.2 H ABG Oxyhemoglobin VBG pH Oxyhemoglobin Sodium Potassium Chloride Carbon Dioxide BUN Creatinine Glucose 152 H POC Glucose Lactic Acid Calcium Ferritin AST Alkaline Phosphatase Lactate Dehydrogenase 365 H Total Creatine Kinase CK-MB (CK-2) C-Reactive Protein Total Protein Albumin Troponin T HDL Cholesterol Urine WBC (Auto) Urine Creatinine Urine Total Protein Coronavirus (PCR) Crossmatch 05/28/20 05/28/20 05/28/20 16:30 20:41 23:20 WBC RBC Hgb Hct MCHC RDW Lymph % (Auto) [place] % (Auto) Eos % (Auto) Lymph # [place] # Seg Neutrophils % Seg Neuts % (Manual) Lymphocytes % (Manual) Seg Neutrophils # Seg Neutrophils # Man Lymphocytes # (Manual) Monocytes % (Manual) Eosinophils % (Manual) Monocytes # (Manual) Eosinophils # (Manual) D-Dimer Heparin Anti-Xa Level ABG pH POC ABG pCO2 POC ABG pO2 ABG pO2 ABG HCO3 ABG O2 Saturation ABG Base Excess ABG Hemoglobin ABG Oxyhemoglobin VBG pH Oxyhemoglobin Sodium Potassium Chloride Carbon Dioxide BUN Creatinine Glucose POC Glucose 225 H 224 H Lactic Acid Calcium Ferritin AST Alkaline Phosphatase Lactate Dehydrogenase Total Creatine Kinase CK-MB (CK-2) C-Reactive Protein Total Protein Albumin Troponin T HDL Cholesterol Urine WBC (Auto) 17.0 H Urine Creatinine Urine Total Protein Coronavirus (PCR) Crossmatch 05/28/20 05/29/20 05/29/20 Unknown 04:35 04:43 WBC RBC 3.48 L Hgb 9.8 L Hct 29.4 L MCHC RDW 16.0 H Lymph % (Auto) 7.4 L [place] % (Auto) Eos % (Auto) Lymph # 0.7 L [place] # Seg Neutrophils % 89.1 H Seg Neuts % (Manual) Lymphocytes % (Manual) Seg Neutrophils # 8.1 H Seg Neutrophils # Man Lymphocytes # (Manual) Monocytes % (Manual) Eosinophils % (Manual) Monocytes # (Manual) Eosinophils # (Manual) D-Dimer Heparin Anti-Xa Level ABG pH POC ABG pCO2 POC ABG pO2 ABG pO2 ABG HCO3 19.3 L ABG O2 Saturation ABG Base Excess -4.5 L ABG Hemoglobin 9.7 L ABG Oxyhemoglobin VBG pH Oxyhemoglobin Sodium Potassium Chloride Carbon Dioxide BUN Creatinine Glucose POC Glucose Lactic Acid Calcium Ferritin AST Alkaline Phosphatase Lactate Dehydrogenase Total Creatine Kinase CK-MB (CK-2) C-Reactive Protein Total Protein Albumin Troponin T HDL Cholesterol Urine WBC (Auto) Urine Creatinine Urine Total Protein Coronavirus (PCR) Positive A Crossmatch 05/29/20 05/29/20 05/29/20 04:43 15:10 17:17 WBC RBC Hgb 9.3 L Hct 28.7 L MCHC RDW Lymph % (Auto) [place] % (Auto) Eos % (Auto) Lymph # [place] # Seg Neutrophils % Seg Neuts % (Manual) Lymphocytes % (Manual) Seg Neutrophils # Seg Neutrophils # Man Lymphocytes # (Manual) Monocytes % (Manual) Eosinophils % (Manual) Monocytes # (Manual) Eosinophils # (Manual) D-Dimer Heparin Anti-Xa Level ABG pH POC ABG pCO2 POC ABG pO2 ABG pO2 ABG HCO3 ABG O2 Saturation ABG Base Excess ABG Hemoglobin ABG Oxyhemoglobin VBG pH Oxyhemoglobin Sodium Potassium Chloride 110.2 H Carbon Dioxide 18 L BUN 32 H Creatinine 1.4 H Glucose 180 H POC Glucose 147 H Lactic Acid Calcium Ferritin AST Alkaline Phosphatase Lactate Dehydrogenase Total Creatine Kinase CK-MB (CK-2) C-Reactive Protein Total Protein Albumin Troponin T HDL Cholesterol Urine WBC (Auto) Urine Creatinine Urine Total Protein Coronavirus (PCR) Crossmatch 05/30/20 05/30/20 05/30/20 00:08 00:12 04:15 WBC RBC Hgb Hct MCHC RDW Lymph % (Auto) [place] % (Auto) Eos % (Auto) Lymph # [place] # Seg Neutrophils % Seg Neuts % (Manual) Lymphocytes % (Manual) Seg Neutrophils # Seg Neutrophils # Man Lymphocytes # (Manual) Monocytes % (Manual) Eosinophils % (Manual) Monocytes # (Manual) Eosinophils # (Manual) D-Dimer Heparin Anti-Xa Level 0.71 H ABG pH 7.460 H POC ABG pCO2 POC ABG pO2 ABG pO2 106.0 H ABG HCO3 18.9 L ABG O2 Saturation ABG Base Excess -4.4 L ABG Hemoglobin 6.8 L ABG Oxyhemoglobin VBG pH Oxyhemoglobin Sodium Potassium Chloride Carbon Dioxide BUN Creatinine Glucose POC Glucose 195 H Lactic Acid Calcium Ferritin AST Alkaline Phosphatase Lactate Dehydrogenase Total Creatine Kinase CK-MB (CK-2) C-Reactive Protein Total Protein Albumin Troponin T HDL Cholesterol Urine WBC (Auto) Urine Creatinine Urine Total Protein Coronavirus (PCR) Crossmatch 05/30/20 05/30/20 05/30/20 06:07 08:37 12:33 WBC RBC Hgb Hct MCHC RDW Lymph % (Auto) [place] % (Auto) Eos % (Auto) Lymph # [place] # Seg Neutrophils % Seg Neuts % (Manual) Lymphocytes % (Manual) Seg Neutrophils # Seg Neutrophils # Man Lymphocytes # (Manual) Monocytes % (Manual) Eosinophils % (Manual) Monocytes # (Manual) Eosinophils # (Manual) D-Dimer Heparin Anti-Xa Level 0.85 H ABG pH POC ABG pCO2 POC ABG pO2 ABG pO2 ABG HCO3 ABG O2 Saturation ABG Base Excess ABG Hemoglobin ABG Oxyhemoglobin VBG pH Oxyhemoglobin Sodium Potassium Chloride Carbon Dioxide BUN Creatinine Glucose POC Glucose 182 H 187 H Lactic Acid Calcium Ferritin AST Alkaline Phosphatase Lactate Dehydrogenase Total Creatine Kinase CK-MB (CK-2) C-Reactive Protein Total Protein Albumin Troponin T HDL Cholesterol Urine WBC (Auto) Urine Creatinine Urine Total Protein Coronavirus (PCR) Crossmatch 05/30/20 05/30/20 05/30/20 15:58 17:57 23:36 WBC RBC Hgb Hct MCHC RDW Lymph % (Auto) [place] % (Auto) Eos % (Auto) Lymph # [place] # Seg Neutrophils % Seg Neuts % (Manual) Lymphocytes % (Manual) Seg Neutrophils # Seg Neutrophils # Man Lymphocytes # (Manual) Monocytes % (Manual) Eosinophils % (Manual) Monocytes # (Manual) Eosinophils # (Manual) D-Dimer Heparin Anti-Xa Level 1.03 H ABG pH POC ABG pCO2 POC ABG pO2 ABG pO2 ABG HCO3 ABG O2 Saturation ABG Base Excess ABG Hemoglobin ABG Oxyhemoglobin VBG pH Oxyhemoglobin Sodium Potassium Chloride Carbon Dioxide BUN Creatinine Glucose POC Glucose 208 H 185 H Lactic Acid Calcium Ferritin AST Alkaline Phosphatase Lactate Dehydrogenase Total Creatine Kinase CK-MB (CK-2) C-Reactive Protein Total Protein Albumin Troponin T HDL Cholesterol Urine WBC (Auto) Urine Creatinine Urine Total Protein Coronavirus (PCR) Crossmatch 05/31/20 05/31/20 05/31/20 02:16 03:55 06:16 WBC RBC Hgb 9.2 L Hct 27.5 L MCHC RDW Lymph % (Auto) [place] % (Auto) Eos % (Auto) Lymph # [place] # Seg Neutrophils % Seg Neuts % (Manual) Lymphocytes % (Manual) Seg Neutrophils # Seg Neutrophils # Man Lymphocytes # (Manual) Monocytes % (Manual) Eosinophils % (Manual) Monocytes # (Manual) Eosinophils # (Manual) D-Dimer Heparin Anti-Xa Level ABG pH POC ABG pCO2 POC ABG pO2 ABG pO2 94.7 H ABG HCO3 18.6 L ABG O2 Saturation ABG Base Excess -5.5 L ABG Hemoglobin 7.9 L ABG Oxyhemoglobin VBG pH Oxyhemoglobin Sodium Potassium Chloride Carbon Dioxide BUN Creatinine Glucose POC Glucose 160 H Lactic Acid Calcium Ferritin AST Alkaline Phosphatase Lactate Dehydrogenase Total Creatine Kinase CK-MB (CK-2) C-Reactive Protein Total Protein Albumin Troponin T HDL Cholesterol Urine WBC (Auto) Urine Creatinine Urine Total Protein Coronavirus (PCR) Crossmatch 05/31/20 05/31/20 05/31/20 12:20 13:03 18:13 WBC RBC Hgb Hct MCHC RDW Lymph % (Auto) [place] % (Auto) Eos % (Auto) Lymph # [place] # Seg Neutrophils % Seg Neuts % (Manual) Lymphocytes % (Manual) Seg Neutrophils # Seg Neutrophils # Man Lymphocytes # (Manual) Monocytes % (Manual) Eosinophils % (Manual) Monocytes # (Manual) Eosinophils # (Manual) D-Dimer Heparin Anti-Xa Level ABG pH POC ABG pCO2 POC ABG pO2 ABG pO2 ABG HCO3 ABG O2 Saturation ABG Base Excess ABG Hemoglobin ABG Oxyhemoglobin VBG pH Oxyhemoglobin Sodium Potassium Chloride Carbon Dioxide 18 L BUN 48 H Creatinine 1.6 H Glucose 115 H POC Glucose 128 H 159 H Lactic Acid Calcium 8.3 L Ferritin AST Alkaline Phosphatase Lactate Dehydrogenase Total Creatine Kinase CK-MB (CK-2) C-Reactive Protein Total Protein 5.4 L Albumin 2.4 L Troponin T HDL Cholesterol Urine WBC (Auto) Urine Creatinine Urine Total Protein Coronavirus (PCR) Crossmatch 05/31/20 06/01/20 06/01/20 23:51 04:00 05:48 WBC RBC Hgb Hct MCHC RDW Lymph % (Auto) [place] % (Auto) Eos % (Auto) Lymph # [place] # Seg Neutrophils % Seg Neuts % (Manual) Lymphocytes % (Manual) Seg Neutrophils # Seg Neutrophils # Man Lymphocytes # (Manual) Monocytes % (Manual) Eosinophils % (Manual) Monocytes # (Manual) Eosinophils # (Manual) D-Dimer Heparin Anti-Xa Level ABG pH POC ABG pCO2 POC ABG pO2 ABG pO2 109.8 H ABG HCO3 18.8 L ABG O2 Saturation ABG Base Excess -5.9 L ABG Hemoglobin 7.8 L ABG Oxyhemoglobin VBG pH Oxyhemoglobin Sodium Potassium Chloride Carbon Dioxide BUN Creatinine Glucose POC Glucose 171 H 133 H Lactic Acid Calcium Ferritin AST Alkaline Phosphatase Lactate Dehydrogenase Total Creatine Kinase CK-MB (CK-2) C-Reactive Protein Total Protein Albumin Troponin T HDL Cholesterol Urine WBC (Auto) Urine Creatinine Urine Total Protein Coronavirus (PCR) Crossmatch 06/01/20 06/01/20 06/02/20 12:28 17:29 00:08 WBC RBC Hgb Hct MCHC RDW Lymph % (Auto) [place] % (Auto) Eos % (Auto) Lymph # [place] # Seg Neutrophils % Seg Neuts % (Manual) Lymphocytes % (Manual) Seg Neutrophils # Seg Neutrophils # Man Lymphocytes # (Manual) Monocytes % (Manual) Eosinophils % (Manual) Monocytes # (Manual) Eosinophils # (Manual) D-Dimer Heparin Anti-Xa Level ABG pH POC ABG pCO2 POC ABG pO2 ABG pO2 ABG HCO3 ABG O2 Saturation ABG Base Excess ABG Hemoglobin ABG Oxyhemoglobin VBG pH Oxyhemoglobin Sodium Potassium Chloride Carbon Dioxide BUN Creatinine Glucose POC Glucose 199 H 209 H 162 H Lactic Acid Calcium Ferritin AST Alkaline Phosphatase Lactate Dehydrogenase Total Creatine Kinase CK-MB (CK-2) C-Reactive Protein Total Protein Albumin Troponin T HDL Cholesterol Urine WBC (Auto) Urine Creatinine Urine Total Protein Coronavirus (PCR) Crossmatch 06/02/20 06/02/20 06/02/20 04:20 04:20 04:44 WBC RBC Hgb 10.0 L Hct MCHC RDW Lymph % (Auto) [place] % (Auto) Eos % (Auto) Lymph # [place] # Seg Neutrophils % Seg Neuts % (Manual) Lymphocytes % (Manual) Seg Neutrophils # Seg Neutrophils # Man Lymphocytes # (Manual) Monocytes % (Manual) Eosinophils % (Manual) Monocytes # (Manual) Eosinophils # (Manual) D-Dimer Heparin Anti-Xa Level 0.10 L ABG pH POC ABG pCO2 POC ABG pO2 ABG pO2 150.6 H ABG HCO3 ABG O2 Saturation ABG Base Excess -4.1 L ABG Hemoglobin 11.8 L ABG Oxyhemoglobin VBG pH Oxyhemoglobin Sodium Potassium Chloride Carbon Dioxide BUN Creatinine Glucose POC Glucose Lactic Acid Calcium Ferritin AST Alkaline Phosphatase Lactate Dehydrogenase Total Creatine Kinase CK-MB (CK-2) C-Reactive Protein Total Protein Albumin Troponin T HDL Cholesterol Urine WBC (Auto) Urine Creatinine Urine Total Protein Coronavirus (PCR) Crossmatch 06/02/20 06/02/20 06/02/20 05:53 12:04 13:49 WBC RBC Hgb Hct MCHC RDW Lymph % (Auto) [place] % (Auto) Eos % (Auto) Lymph # [place] # Seg Neutrophils % Seg Neuts % (Manual) Lymphocytes % (Manual) Seg Neutrophils # Seg Neutrophils # Man Lymphocytes # (Manual) Monocytes % (Manual) Eosinophils % (Manual) Monocytes # (Manual) Eosinophils # (Manual) D-Dimer Heparin Anti-Xa Level 0.28 L ABG pH POC ABG pCO2 POC ABG pO2 ABG pO2 ABG HCO3 ABG O2 Saturation ABG Base Excess ABG Hemoglobin ABG Oxyhemoglobin VBG pH Oxyhemoglobin Sodium Potassium Chloride Carbon Dioxide BUN Creatinine Glucose POC Glucose 149 H 220 H Lactic Acid Calcium Ferritin AST Alkaline Phosphatase Lactate Dehydrogenase Total Creatine Kinase CK-MB (CK-2) C-Reactive Protein Total Protein Albumin Troponin T HDL Cholesterol Urine WBC (Auto) Urine Creatinine Urine Total Protein Coronavirus (PCR) Crossmatch 06/02/20 06/02/20 06/03/20 13:49 18:31 00:42 WBC RBC Hgb Hct MCHC RDW Lymph % (Auto) [place] % (Auto) Eos % (Auto) Lymph # [place] # Seg Neutrophils % Seg Neuts % (Manual) Lymphocytes % (Manual) Seg Neutrophils # Seg Neutrophils # Man Lymphocytes # (Manual) Monocytes % (Manual) Eosinophils % (Manual) Monocytes # (Manual) Eosinophils # (Manual) D-Dimer 769.68 H Heparin Anti-Xa Level ABG pH POC ABG pCO2 POC ABG pO2 ABG pO2 ABG HCO3 ABG O2 Saturation ABG Base Excess ABG Hemoglobin ABG Oxyhemoglobin VBG pH Oxyhemoglobin Sodium Potassium Chloride Carbon Dioxide BUN Creatinine Glucose POC Glucose 225 H 212 H Lactic Acid Calcium Ferritin AST Alkaline Phosphatase Lactate Dehydrogenase Total Creatine Kinase CK-MB (CK-2) C-Reactive Protein Total Protein Albumin Troponin T HDL Cholesterol Urine WBC (Auto) Urine Creatinine Urine Total Protein Coronavirus (PCR) Crossmatch 06/03/20 06/03/20 06/03/20 05:16 05:16 05:25 WBC 11.4 H RBC Hgb Hct MCHC RDW 16.4 H Lymph % (Auto) [place] % (Auto) Eos % (Auto) Lymph # [place] # Seg Neutrophils % Seg Neuts % (Manual) Lymphocytes % (Manual) Seg Neutrophils # Seg Neutrophils # Man Lymphocytes # (Manual) Monocytes % (Manual) Eosinophils % (Manual) Monocytes # (Manual) Eosinophils # (Manual) D-Dimer Heparin Anti-Xa Level ABG pH POC ABG pCO2 POC ABG pO2 ABG pO2 160.9 H ABG HCO3 19.4 L ABG O2 Saturation ABG Base Excess -4.9 L ABG Hemoglobin 7.0 L ABG Oxyhemoglobin VBG pH Oxyhemoglobin Sodium Potassium Chloride Carbon Dioxide 18 L BUN 65 H Creatinine 2.0 H Glucose 175 H POC Glucose Lactic Acid Calcium 8.0 L Ferritin AST Alkaline Phosphatase Lactate Dehydrogenase Total Creatine Kinase CK-MB (CK-2) C-Reactive Protein Total Protein 5.5 L Albumin 2.2 L Troponin T HDL Cholesterol Urine WBC (Auto) Urine Creatinine Urine Total Protein Coronavirus (PCR) Crossmatch 06/03/20 06/03/20 06/03/20 06:07 11:58 18:24 WBC RBC Hgb Hct MCHC RDW Lymph % (Auto) [place] % (Auto) Eos % (Auto) Lymph # [place] # Seg Neutrophils % Seg Neuts % (Manual) Lymphocytes % (Manual) Seg Neutrophils # Seg Neutrophils # Man Lymphocytes # (Manual) Monocytes % (Manual) Eosinophils % (Manual) Monocytes # (Manual) Eosinophils # (Manual) D-Dimer Heparin Anti-Xa Level ABG pH POC ABG pCO2 POC ABG pO2 ABG pO2 ABG HCO3 ABG O2 Saturation ABG Base Excess ABG Hemoglobin ABG Oxyhemoglobin VBG pH Oxyhemoglobin Sodium Potassium Chloride Carbon Dioxide BUN Creatinine Glucose POC Glucose 177 H 163 H 211 H Lactic Acid Calcium Ferritin AST Alkaline Phosphatase Lactate Dehydrogenase Total Creatine Kinase CK-MB (CK-2) C-Reactive Protein Total Protein Albumin Troponin T HDL Cholesterol Urine WBC (Auto) Urine Creatinine Urine Total Protein Coronavirus (PCR) Crossmatch 06/03/20 06/03/20 06/04/20 21:50 Unknown 00:26 WBC RBC Hgb Hct MCHC RDW Lymph % (Auto) [place] % (Auto) Eos % (Auto) Lymph # [place] # Seg Neutrophils % Seg Neuts % (Manual) Lymphocytes % (Manual) Seg Neutrophils # Seg Neutrophils # Man Lymphocytes # (Manual) Monocytes % (Manual) Eosinophils % (Manual) Monocytes # (Manual) Eosinophils # (Manual) D-Dimer Heparin Anti-Xa Level ABG pH POC ABG pCO2 POC ABG pO2 ABG pO2 ABG HCO3 ABG O2 Saturation ABG Base Excess ABG Hemoglobin ABG Oxyhemoglobin VBG pH Oxyhemoglobin Sodium 135 L Potassium Chloride Carbon Dioxide 18 L BUN Creatinine Glucose POC Glucose 241 H Lactic Acid Calcium Ferritin AST Alkaline Phosphatase Lactate Dehydrogenase Total Creatine Kinase CK-MB (CK-2) C-Reactive Protein Total Protein Albumin Troponin T HDL Cholesterol Urine WBC (Auto) 11.0 H Urine Creatinine Urine Total Protein Coronavirus (PCR) Crossmatch 06/04/20 06/04/20 06/04/20 03:35 04:19 04:19 WBC RBC 3.15 L Hgb 8.9 L Hct 26.8 L D MCHC RDW 15.9 H Lymph % (Auto) 6.0 L [place] % (Auto) Eos % (Auto) Lymph # 0.6 L [place] # Seg Neutrophils % 86.6 H Seg Neuts % (Manual) Lymphocytes % (Manual) Seg Neutrophils # 9.1 H Seg Neutrophils # Man Lymphocytes # (Manual) Monocytes % (Manual) Eosinophils % (Manual) Monocytes # (Manual) Eosinophils # (Manual) D-Dimer Heparin Anti-Xa Level ABG pH 7.331 L POC ABG pCO2 POC ABG pO2 ABG pO2 ABG HCO3 ABG O2 Saturation ABG Base Excess -4.7 L ABG Hemoglobin 11.0 L ABG Oxyhemoglobin VBG pH Oxyhemoglobin 93.9 L Sodium 136 L Potassium Chloride Carbon Dioxide 20 L BUN 73 H Creatinine 2.0 H Glucose 192 H POC Glucose Lactic Acid Calcium 8.0 L Ferritin AST Alkaline Phosphatase Lactate Dehydrogenase 271 H Total Creatine Kinase CK-MB (CK-2) C-Reactive Protein 2.20 H Total Protein 5.0 L Albumin 2.0 L Troponin T HDL Cholesterol Urine WBC (Auto) Urine Creatinine Urine Total Protein Coronavirus (PCR) Crossmatch 06/04/20 06/04/20 06/04/20 04:19 05:51 11:48 WBC RBC Hgb Hct MCHC RDW Lymph % (Auto) [place] % (Auto) Eos % (Auto) Lymph # [place] # Seg Neutrophils % Seg Neuts % (Manual) Lymphocytes % (Manual) Seg Neutrophils # Seg Neutrophils # Man Lymphocytes # (Manual) Monocytes % (Manual) Eosinophils % (Manual) Monocytes # (Manual) Eosinophils # (Manual) D-Dimer 414.52 H Heparin Anti-Xa Level ABG pH POC ABG pCO2 POC ABG pO2 ABG pO2 ABG HCO3 ABG O2 Saturation ABG Base Excess ABG Hemoglobin ABG Oxyhemoglobin VBG pH Oxyhemoglobin Sodium Potassium Chloride Carbon Dioxide BUN Creatinine Glucose POC Glucose 179 H 213 H Lactic Acid Calcium Ferritin AST Alkaline Phosphatase Lactate Dehydrogenase Total Creatine Kinase CK-MB (CK-2) C-Reactive Protein Total Protein Albumin Troponin T HDL Cholesterol Urine WBC (Auto) Urine Creatinine Urine Total Protein Coronavirus (PCR) Crossmatch 06/04/20 06/05/20 06/05/20 18:25 00:16 05:00 WBC RBC Hgb Hct MCHC RDW Lymph % (Auto) [place] % (Auto) Eos % (Auto) Lymph # [place] # Seg Neutrophils % Seg Neuts % (Manual) Lymphocytes % (Manual) Seg Neutrophils # Seg Neutrophils # Man Lymphocytes # (Manual) Monocytes % (Manual) Eosinophils % (Manual) Monocytes # (Manual) Eosinophils # (Manual) D-Dimer Heparin Anti-Xa Level ABG pH 7.286 L POC ABG pCO2 POC ABG pO2 ABG pO2 96.2 H ABG HCO3 ABG O2 Saturation ABG Base Excess -6.3 L ABG Hemoglobin 8.8 L ABG Oxyhemoglobin VBG pH Oxyhemoglobin 94.8 L Sodium Potassium Chloride Carbon Dioxide BUN Creatinine Glucose POC Glucose 238 H 183 H Lactic Acid Calcium Ferritin AST Alkaline Phosphatase Lactate Dehydrogenase Total Creatine Kinase CK-MB (CK-2) C-Reactive Protein Total Protein Albumin Troponin T HDL Cholesterol Urine WBC (Auto) Urine Creatinine Urine Total Protein Coronavirus (PCR) Crossmatch 06/05/20 06/05/20 06/05/20 05:39 07:25 07:25 WBC RBC 2.97 L Hgb 8.7 L Hct 25.7 L MCHC RDW 16.0 H Lymph % (Auto) 8.8 L [place] % (Auto) 13.3 H Eos % (Auto) Lymph # 0.8 L [place] # 1.3 H Seg Neutrophils % 77.3 H Seg Neuts % (Manual) Lymphocytes % (Manual) Seg Neutrophils # Seg Neutrophils # Man Lymphocytes # (Manual) Monocytes % (Manual) Eosinophils % (Manual) Monocytes # (Manual) Eosinophils # (Manual) D-Dimer Heparin Anti-Xa Level ABG pH POC ABG pCO2 POC ABG pO2 ABG pO2 ABG HCO3 ABG O2 Saturation ABG Base Excess ABG Hemoglobin ABG Oxyhemoglobin VBG pH Oxyhemoglobin Sodium 133 L Potassium Chloride Carbon Dioxide 17 L BUN 89 H Creatinine 2.8 H Glucose 176 H POC Glucose 149 H Lactic Acid Calcium 7.7 L Ferritin AST Alkaline Phosphatase Lactate Dehydrogenase Total Creatine Kinase CK-MB (CK-2) C-Reactive Protein Total Protein 4.2 L Albumin 1.9 L Troponin T HDL Cholesterol Urine WBC (Auto) Urine Creatinine Urine Total Protein Coronavirus (PCR) Crossmatch 06/05/20 06/05/20 06/05/20 07:25 12:05 15:41 WBC RBC Hgb Hct MCHC RDW Lymph % (Auto) [place] % (Auto) Eos % (Auto) Lymph # [place] # Seg Neutrophils % Seg Neuts % (Manual) Lymphocytes % (Manual) Seg Neutrophils # Seg Neutrophils # Man Lymphocytes # (Manual) Monocytes % (Manual) Eosinophils % (Manual) Monocytes # (Manual) Eosinophils # (Manual) D-Dimer Heparin Anti-Xa Level 0.76 H 0.81 H ABG pH POC ABG pCO2 POC ABG pO2 ABG pO2 ABG HCO3 ABG O2 Saturation ABG Base Excess ABG Hemoglobin ABG Oxyhemoglobin VBG pH Oxyhemoglobin Sodium Potassium Chloride Carbon Dioxide BUN Creatinine Glucose POC Glucose 198 H Lactic Acid Calcium Ferritin AST Alkaline Phosphatase Lactate Dehydrogenase Total Creatine Kinase CK-MB (CK-2) C-Reactive Protein Total Protein Albumin Troponin T HDL Cholesterol Urine WBC (Auto) Urine Creatinine Urine Total Protein Coronavirus (PCR) Crossmatch 06/05/20 06/05/20 06/06/20 18:08 23:25 04:00 WBC RBC Hgb Hct MCHC RDW Lymph % (Auto) [place] % (Auto) Eos % (Auto) Lymph # [place] # Seg Neutrophils % Seg Neuts % (Manual) Lymphocytes % (Manual) Seg Neutrophils # Seg Neutrophils # Man Lymphocytes # (Manual) Monocytes % (Manual) Eosinophils % (Manual) Monocytes # (Manual) Eosinophils # (Manual) D-Dimer Heparin Anti-Xa Level ABG pH POC ABG pCO2 POC ABG pO2 ABG pO2 ABG HCO3 ABG O2 Saturation ABG Base Excess ABG Hemoglobin ABG Oxyhemoglobin VBG pH Oxyhemoglobin Sodium Potassium Chloride Carbon Dioxide BUN Creatinine Glucose POC Glucose 223 H 169 H Lactic Acid Calcium Ferritin AST Alkaline Phosphatase Lactate Dehydrogenase Total Creatine Kinase CK-MB (CK-2) C-Reactive Protein Total Protein Albumin Troponin T HDL Cholesterol Urine WBC (Auto) 15.0 H Urine Creatinine Urine Total Protein Coronavirus (PCR) Crossmatch 06/06/20 06/06/20 06/06/20 04:00 05:33 05:38 WBC RBC 2.97 L Hgb 8.7 L Hct 26.8 L MCHC RDW 16.8 H Lymph % (Auto) [place] % (Auto) Eos % (Auto) Lymph # [place] # Seg Neutrophils % Seg Neuts % (Manual) Lymphocytes % (Manual) Seg Neutrophils # Seg Neutrophils # Man Lymphocytes # (Manual) Monocytes % (Manual) Eosinophils % (Manual) Monocytes # (Manual) Eosinophils # (Manual) D-Dimer Heparin Anti-Xa Level ABG pH POC ABG pCO2 POC ABG pO2 ABG pO2 ABG HCO3 ABG O2 Saturation ABG Base Excess ABG Hemoglobin ABG Oxyhemoglobin VBG pH Oxyhemoglobin Sodium Potassium Chloride Carbon Dioxide BUN Creatinine Glucose POC Glucose 186 H Lactic Acid Calcium Ferritin AST Alkaline Phosphatase Lactate Dehydrogenase Total Creatine Kinase CK-MB (CK-2) C-Reactive Protein Total Protein Albumin Troponin T HDL Cholesterol Urine WBC (Auto) Urine Creatinine 82.2 H Urine Total Protein 196 H Coronavirus (PCR) Crossmatch 06/06/20 06/06/20 06/06/20 05:38 12:25 17:03 WBC RBC Hgb Hct MCHC RDW Lymph % (Auto) [place] % (Auto) Eos % (Auto) Lymph # [place] # Seg Neutrophils % Seg Neuts % (Manual) Lymphocytes % (Manual) Seg Neutrophils # Seg Neutrophils # Man Lymphocytes # (Manual) Monocytes % (Manual) Eosinophils % (Manual) Monocytes # (Manual) Eosinophils # (Manual) D-Dimer Heparin Anti-Xa Level ABG pH POC ABG pCO2 POC ABG pO2 ABG pO2 ABG HCO3 ABG O2 Saturation ABG Base Excess ABG Hemoglobin ABG Oxyhemoglobin VBG pH Oxyhemoglobin Sodium 134 L Potassium 5.2 H Chloride Carbon Dioxide 18 L BUN 97 H Creatinine 2.5 H Glucose 193 H POC Glucose 239 H 252 H Lactic Acid Calcium 7.5 L Ferritin AST Alkaline Phosphatase Lactate Dehydrogenase Total Creatine Kinase CK-MB (CK-2) C-Reactive Protein Total Protein 4.1 L Albumin 1.9 L Troponin T HDL Cholesterol Urine WBC (Auto) Urine Creatinine Urine Total Protein Coronavirus (PCR) Crossmatch 06/07/20 06/07/20 06/07/20 00:16 01:49 04:00 WBC RBC 2.91 L Hgb 8.4 L Hct 25.0 L MCHC RDW 16.1 H Lymph % (Auto) 5.7 L [place] % (Auto) 10.5 H Eos % (Auto) Lymph # 0.6 L [place] # 1.1 H Seg Neutrophils % 83.6 H Seg Neuts % (Manual) Lymphocytes % (Manual) Seg Neutrophils # 9.1 H Seg Neutrophils # Man Lymphocytes # (Manual) Monocytes % (Manual) Eosinophils % (Manual) Monocytes # (Manual) Eosinophils # (Manual) D-Dimer Heparin Anti-Xa Level 0.26 L ABG pH POC ABG pCO2 POC ABG pO2 ABG pO2 ABG HCO3 ABG O2 Saturation ABG Base Excess ABG Hemoglobin ABG Oxyhemoglobin VBG pH Oxyhemoglobin Sodium Potassium Chloride Carbon Dioxide BUN Creatinine Glucose POC Glucose 173 H Lactic Acid Calcium Ferritin AST Alkaline Phosphatase Lactate Dehydrogenase Total Creatine Kinase CK-MB (CK-2) C-Reactive Protein Total Protein Albumin Troponin T HDL Cholesterol Urine WBC (Auto) Urine Creatinine Urine Total Protein Coronavirus (PCR) Crossmatch 06/07/20 06/07/20 06/07/20 04:00 04:54 05:51 WBC RBC Hgb Hct MCHC RDW Lymph % (Auto) [place] % (Auto) Eos % (Auto) Lymph # [place] # Seg Neutrophils % Seg Neuts % (Manual) Lymphocytes % (Manual) Seg Neutrophils # Seg Neutrophils # Man Lymphocytes # (Manual) Monocytes % (Manual) Eosinophils % (Manual) Monocytes # (Manual) Eosinophils # (Manual) D-Dimer Heparin Anti-Xa Level ABG pH 7.317 L POC ABG pCO2 POC ABG pO2 ABG pO2 71.4 L ABG HCO3 ABG O2 Saturation 94.3 L ABG Base Excess -4.8 L ABG Hemoglobin 7.1 L ABG Oxyhemoglobin VBG pH Oxyhemoglobin 92.2 L Sodium 133 L Potassium Chloride Carbon Dioxide 18 L BUN 100 H Creatinine 2.5 H Glucose 158 H POC Glucose 168 H Lactic Acid Calcium 7.6 L Ferritin AST Alkaline Phosphatase Lactate Dehydrogenase Total Creatine Kinase CK-MB (CK-2) C-Reactive Protein Total Protein 4.7 L Albumin 2.0 L Troponin T HDL Cholesterol Urine WBC (Auto) Urine Creatinine Urine Total Protein Coronavirus (PCR) Crossmatch 06/07/20 06/07/20 06/07/20 12:03 17:17 20:10 WBC RBC Hgb Hct MCHC RDW Lymph % (Auto) [place] % (Auto) Eos % (Auto) Lymph # [place] # Seg Neutrophils % Seg Neuts % (Manual) Lymphocytes % (Manual) Seg Neutrophils # Seg Neutrophils # Man Lymphocytes # (Manual) Monocytes % (Manual) Eosinophils % (Manual) Monocytes # (Manual) Eosinophils # (Manual) D-Dimer Heparin Anti-Xa Level 0.17 L ABG pH POC ABG pCO2 POC ABG pO2 ABG pO2 ABG HCO3 ABG O2 Saturation ABG Base Excess ABG Hemoglobin ABG Oxyhemoglobin VBG pH Oxyhemoglobin Sodium Potassium Chloride Carbon Dioxide BUN Creatinine Glucose POC Glucose 276 H 281 H Lactic Acid Calcium Ferritin AST Alkaline Phosphatase Lactate Dehydrogenase Total Creatine Kinase CK-MB (CK-2) C-Reactive Protein Total Protein Albumin Troponin T HDL Cholesterol Urine WBC (Auto) Urine Creatinine Urine Total Protein Coronavirus (PCR) Crossmatch 06/08/20 06/08/20 06/08/20 00:02 04:47 04:47 WBC 16.4 H RBC 3.07 L Hgb 8.6 L Hct 26.5 L MCHC RDW 16.3 H Lymph % (Auto) [place] % (Auto) Eos % (Auto) Lymph # [place] # Seg Neutrophils % Seg Neuts % (Manual) 90.0 H Lymphocytes % (Manual) 3.0 L Seg Neutrophils # Seg Neutrophils # Man 14.8 H Lymphocytes # (Manual) 0.5 L Monocytes % (Manual) Eosinophils % (Manual) Monocytes # (Manual) 1.1 H Eosinophils # (Manual) D-Dimer Heparin Anti-Xa Level ABG pH POC ABG pCO2 POC ABG pO2 ABG pO2 ABG HCO3 ABG O2 Saturation ABG Base Excess ABG Hemoglobin ABG Oxyhemoglobin VBG pH Oxyhemoglobin Sodium 129 L Potassium Chloride 95.6 L Carbon Dioxide 17 L BUN 106 H Creatinine 2.5 H Glucose 213 H POC Glucose 242 H Lactic Acid Calcium 7.6 L Ferritin AST Alkaline Phosphatase Lactate Dehydrogenase Total Creatine Kinase CK-MB (CK-2) C-Reactive Protein Total Protein 5.0 L Albumin 2.1 L Troponin T HDL Cholesterol Urine WBC (Auto) Urine Creatinine Urine Total Protein Coronavirus (PCR) Crossmatch 06/08/20 06/08/20 06/08/20 05:40 11:55 17:54 WBC RBC Hgb Hct MCHC RDW Lymph % (Auto) [place] % (Auto) Eos % (Auto) Lymph # [place] # Seg Neutrophils % Seg Neuts % (Manual) Lymphocytes % (Manual) Seg Neutrophils # Seg Neutrophils # Man Lymphocytes # (Manual) Monocytes % (Manual) Eosinophils % (Manual) Monocytes # (Manual) Eosinophils # (Manual) D-Dimer Heparin Anti-Xa Level ABG pH POC ABG pCO2 POC ABG pO2 ABG pO2 ABG HCO3 ABG O2 Saturation ABG Base Excess ABG Hemoglobin ABG Oxyhemoglobin VBG pH Oxyhemoglobin Sodium Potassium Chloride Carbon Dioxide BUN Creatinine Glucose POC Glucose 221 H 218 H 163 H Lactic Acid Calcium Ferritin AST Alkaline Phosphatase Lactate Dehydrogenase Total Creatine Kinase CK-MB (CK-2) C-Reactive Protein Total Protein Albumin Troponin T HDL Cholesterol Urine WBC (Auto) Urine Creatinine Urine Total Protein Coronavirus (PCR) Crossmatch 06/08/20 06/09/20 06/09/20 22:01 00:09 05:16 WBC 19.0 H RBC 3.35 L Hgb 9.2 L Hct 28.5 L MCHC RDW 16.3 H Lymph % (Auto) [place] % (Auto) Eos % (Auto) Lymph # [place] # Seg Neutrophils % Seg Neuts % (Manual) 85.0 H Lymphocytes % (Manual) 7.0 L Seg Neutrophils # Seg Neutrophils # Man 16.2 H Lymphocytes # (Manual) Monocytes % (Manual) Eosinophils % (Manual) Monocytes # (Manual) 1.3 H Eosinophils # (Manual) D-Dimer Heparin Anti-Xa Level ABG pH POC ABG pCO2 POC ABG pO2 ABG pO2 ABG HCO3 ABG O2 Saturation ABG Base Excess ABG Hemoglobin ABG Oxyhemoglobin VBG pH Oxyhemoglobin Sodium Potassium Chloride Carbon Dioxide BUN Creatinine Glucose POC Glucose 182 H 150 H Lactic Acid Calcium Ferritin AST Alkaline Phosphatase Lactate Dehydrogenase Total Creatine Kinase CK-MB (CK-2) C-Reactive Protein Total Protein Albumin Troponin T HDL Cholesterol Urine WBC (Auto) Urine Creatinine Urine Total Protein Coronavirus (PCR) Crossmatch 06/09/20 06/09/20 06/09/20 05:16 05:24 11:29 WBC RBC Hgb Hct MCHC RDW Lymph % (Auto) [place] % (Auto) Eos % (Auto) Lymph # [place] # Seg Neutrophils % Seg Neuts % (Manual) Lymphocytes % (Manual) Seg Neutrophils # Seg Neutrophils # Man Lymphocytes # (Manual) Monocytes % (Manual) Eosinophils % (Manual) Monocytes # (Manual) Eosinophils # (Manual) D-Dimer Heparin Anti-Xa Level ABG pH POC ABG pCO2 POC ABG pO2 ABG pO2 ABG HCO3 ABG O2 Saturation ABG Base Excess ABG Hemoglobin ABG Oxyhemoglobin VBG pH Oxyhemoglobin Sodium 133 L Potassium Chloride Carbon Dioxide 19 L BUN 109 H Creatinine 2.1 H Glucose 133 H POC Glucose 128 H 119 H Lactic Acid Calcium 7.7 L Ferritin AST Alkaline Phosphatase < 5 L Lactate Dehydrogenase Total Creatine Kinase CK-MB (CK-2) C-Reactive Protein Total Protein 4.6 L Albumin < 0.2 L Troponin T HDL Cholesterol Urine WBC (Auto) Urine Creatinine Urine Total Protein Coronavirus (PCR) Crossmatch 06/09/20 06/10/20 06/10/20 17:32 00:00 05:49 WBC RBC Hgb Hct MCHC RDW Lymph % (Auto) [place] % (Auto) Eos % (Auto) Lymph # [place] # Seg Neutrophils % Seg Neuts % (Manual) Lymphocytes % (Manual) Seg Neutrophils # Seg Neutrophils # Man Lymphocytes # (Manual) Monocytes % (Manual) Eosinophils % (Manual) Monocytes # (Manual) Eosinophils # (Manual) D-Dimer Heparin Anti-Xa Level 0.19 L ABG pH POC ABG pCO2 POC ABG pO2 ABG pO2 ABG HCO3 ABG O2 Saturation ABG Base Excess ABG Hemoglobin ABG Oxyhemoglobin VBG pH Oxyhemoglobin Sodium Potassium Chloride Carbon Dioxide BUN Creatinine Glucose POC Glucose 106 H 117 H Lactic Acid Calcium Ferritin AST Alkaline Phosphatase Lactate Dehydrogenase Total Creatine Kinase CK-MB (CK-2) C-Reactive Protein Total Protein Albumin Troponin T HDL Cholesterol Urine WBC (Auto) Urine Creatinine Urine Total Protein Coronavirus (PCR) Crossmatch 06/10/20 06/10/20 06/10/20 05:54 07:40 11:40 WBC RBC Hgb Hct MCHC RDW Lymph % (Auto) [place] % (Auto) Eos % (Auto) Lymph # [place] # Seg Neutrophils % Seg Neuts % (Manual) Lymphocytes % (Manual) Seg Neutrophils # Seg Neutrophils # Man Lymphocytes # (Manual) Monocytes % (Manual) Eosinophils % (Manual) Monocytes # (Manual) Eosinophils # (Manual) D-Dimer Heparin Anti-Xa Level ABG pH POC ABG pCO2 POC ABG pO2 ABG pO2 ABG HCO3 ABG O2 Saturation ABG Base Excess ABG Hemoglobin ABG Oxyhemoglobin VBG pH Oxyhemoglobin Sodium 146 H D Potassium Chloride Carbon Dioxide 20 L BUN 99 H Creatinine 1.9 H Glucose 121 H POC Glucose 127 H 138 H Lactic Acid Calcium 8.2 L Ferritin AST Alkaline Phosphatase Lactate Dehydrogenase Total Creatine Kinase CK-MB (CK-2) C-Reactive Protein Total Protein Albumin Troponin T HDL Cholesterol Urine WBC (Auto) Urine Creatinine Urine Total Protein Coronavirus (PCR) Crossmatch 06/10/20 06/10/20 06/10/20 14:44 17:31 23:22 WBC RBC Hgb Hct MCHC RDW Lymph % (Auto) [place] % (Auto) Eos % (Auto) Lymph # [place] # Seg Neutrophils % Seg Neuts % (Manual) Lymphocytes % (Manual) Seg Neutrophils # Seg Neutrophils # Man Lymphocytes # (Manual) Monocytes % (Manual) Eosinophils % (Manual) Monocytes # (Manual) Eosinophils # (Manual) D-Dimer Heparin Anti-Xa Level 0.17 L ABG pH POC ABG pCO2 POC ABG pO2 ABG pO2 ABG HCO3 ABG O2 Saturation ABG Base Excess ABG Hemoglobin ABG Oxyhemoglobin VBG pH Oxyhemoglobin Sodium Potassium Chloride Carbon Dioxide BUN Creatinine Glucose POC Glucose 128 H 114 H Lactic Acid Calcium Ferritin AST Alkaline Phosphatase Lactate Dehydrogenase Total Creatine Kinase CK-MB (CK-2) C-Reactive Protein Total Protein Albumin Troponin T HDL Cholesterol Urine WBC (Auto) Urine Creatinine Urine Total Protein Coronavirus (PCR) Crossmatch 06/11/20 06/11/20 06/11/20 00:22 03:45 03:45 WBC 14.6 H RBC 2.77 L Hgb 7.9 L Hct 24.3 L MCHC RDW 16.8 H Lymph % (Auto) 6.6 L [place] % (Auto) 8.5 H Eos % (Auto) Lymph # 1.0 L [place] # 1.2 H Seg Neutrophils % 82.9 H Seg Neuts % (Manual) Lymphocytes % (Manual) Seg Neutrophils # 12.1 H Seg Neutrophils # Man Lymphocytes # (Manual) Monocytes % (Manual) Eosinophils % (Manual) Monocytes # (Manual) Eosinophils # (Manual) D-Dimer Heparin Anti-Xa Level 0.24 L ABG pH POC ABG pCO2 POC ABG pO2 ABG pO2 ABG HCO3 ABG O2 Saturation ABG Base Excess ABG Hemoglobin ABG Oxyhemoglobin VBG pH Oxyhemoglobin Sodium Potassium Chloride Carbon Dioxide 20 L BUN 88 H Creatinine 1.5 H Glucose 111 H POC Glucose Lactic Acid Calcium 8.2 L Ferritin AST Alkaline Phosphatase Lactate Dehydrogenase Total Creatine Kinase CK-MB (CK-2) C-Reactive Protein Total Protein Albumin Troponin T HDL Cholesterol Urine WBC (Auto) Urine Creatinine Urine Total Protein Coronavirus (PCR) Crossmatch 06/11/20 06/11/20 06/11/20 06:03 10:22 11:11 WBC RBC Hgb Hct MCHC RDW Lymph % (Auto) [place] % (Auto) Eos % (Auto) Lymph # [place] # Seg Neutrophils % Seg Neuts % (Manual) Lymphocytes % (Manual) Seg Neutrophils # Seg Neutrophils # Man Lymphocytes # (Manual) Monocytes % (Manual) Eosinophils % (Manual) Monocytes # (Manual) Eosinophils # (Manual) D-Dimer Heparin Anti-Xa Level 0.26 L ABG pH POC ABG pCO2 POC ABG pO2 ABG pO2 ABG HCO3 ABG O2 Saturation ABG Base Excess ABG Hemoglobin 9.6 L ABG Oxyhemoglobin VBG pH Oxyhemoglobin Sodium Potassium Chloride Carbon Dioxide BUN Creatinine Glucose POC Glucose 114 H Lactic Acid Calcium Ferritin AST Alkaline Phosphatase Lactate Dehydrogenase Total Creatine Kinase CK-MB (CK-2) C-Reactive Protein Total Protein Albumin Troponin T HDL Cholesterol Urine WBC (Auto) Urine Creatinine Urine Total Protein Coronavirus (PCR) Crossmatch 06/11/20 06/11/20 06/12/20 12:24 17:24 00:21 WBC RBC Hgb Hct MCHC RDW Lymph % (Auto) [place] % (Auto) Eos % (Auto) Lymph # [place] # Seg Neutrophils % Seg Neuts % (Manual) Lymphocytes % (Manual) Seg Neutrophils # Seg Neutrophils # Man Lymphocytes # (Manual) Monocytes % (Manual) Eosinophils % (Manual) Monocytes # (Manual) Eosinophils # (Manual) D-Dimer Heparin Anti-Xa Level ABG pH POC ABG pCO2 POC ABG pO2 ABG pO2 ABG HCO3 ABG O2 Saturation ABG Base Excess ABG Hemoglobin ABG Oxyhemoglobin VBG pH Oxyhemoglobin Sodium Potassium Chloride Carbon Dioxide BUN Creatinine Glucose POC Glucose 119 H 126 H 117 H Lactic Acid Calcium Ferritin AST Alkaline Phosphatase Lactate Dehydrogenase Total Creatine Kinase CK-MB (CK-2) C-Reactive Protein Total Protein Albumin Troponin T HDL Cholesterol Urine WBC (Auto) Urine Creatinine Urine Total Protein Coronavirus (PCR) Crossmatch 06/12/20 06/12/20 06/12/20 02:46 02:46 05:46 WBC 13.2 H RBC 2.83 L Hgb 8.3 L Hct 24.3 L MCHC RDW 16.6 H Lymph % (Auto) 6.2 L [place] % (Auto) 9.5 H Eos % (Auto) Lymph # 0.8 L [place] # 1.3 H Seg Neutrophils % 81.9 H Seg Neuts % (Manual) Lymphocytes % (Manual) Seg Neutrophils # 10.9 H Seg Neutrophils # Man Lymphocytes # (Manual) Monocytes % (Manual) Eosinophils % (Manual) Monocytes # (Manual) Eosinophils # (Manual) D-Dimer Heparin Anti-Xa Level ABG pH POC ABG pCO2 POC ABG pO2 ABG pO2 ABG HCO3 ABG O2 Saturation ABG Base Excess ABG Hemoglobin ABG Oxyhemoglobin VBG pH Oxyhemoglobin Sodium Potassium 3.5 L Chloride Carbon Dioxide BUN 77 H Creatinine 1.3 H Glucose POC Glucose 132 H Lactic Acid Calcium 8.3 L Ferritin AST Alkaline Phosphatase Lactate Dehydrogenase Total Creatine Kinase CK-MB (CK-2) C-Reactive Protein Total Protein Albumin Troponin T HDL Cholesterol Urine WBC (Auto) Urine Creatinine Urine Total Protein Coronavirus (PCR) Crossmatch 06/12/20 06/12/20 06/12/20 09:20 12:16 17:48 WBC RBC Hgb Hct MCHC RDW Lymph % (Auto) [place] % (Auto) Eos % (Auto) Lymph # [place] # Seg Neutrophils % Seg Neuts % (Manual) Lymphocytes % (Manual) Seg Neutrophils # Seg Neutrophils # Man Lymphocytes # (Manual) Monocytes % (Manual) Eosinophils % (Manual) Monocytes # (Manual) Eosinophils # (Manual) D-Dimer Heparin Anti-Xa Level ABG pH POC ABG pCO2 POC ABG pO2 ABG pO2 91.1 H ABG HCO3 ABG O2 Saturation ABG Base Excess ABG Hemoglobin ABG Oxyhemoglobin VBG pH Oxyhemoglobin 94.8 L Sodium Potassium Chloride Carbon Dioxide BUN Creatinine Glucose POC Glucose 167 H 182 H Lactic Acid Calcium Ferritin AST Alkaline Phosphatase Lactate Dehydrogenase Total Creatine Kinase CK-MB (CK-2) C-Reactive Protein Total Protein Albumin Troponin T HDL Cholesterol Urine WBC (Auto) Urine Creatinine Urine Total Protein Coronavirus (PCR) Crossmatch 06/13/20 06/13/20 06/13/20 00:08 05:37 09:09 WBC RBC Hgb Hct MCHC RDW Lymph % (Auto) [place] % (Auto) Eos % (Auto) Lymph # [place] # Seg Neutrophils % Seg Neuts % (Manual) Lymphocytes % (Manual) Seg Neutrophils # Seg Neutrophils # Man Lymphocytes # (Manual) Monocytes % (Manual) Eosinophils % (Manual) Monocytes # (Manual) Eosinophils # (Manual) D-Dimer Heparin Anti-Xa Level 0.86 H ABG pH POC ABG pCO2 POC ABG pO2 ABG pO2 ABG HCO3 ABG O2 Saturation ABG Base Excess ABG Hemoglobin ABG Oxyhemoglobin VBG pH Oxyhemoglobin Sodium Potassium Chloride Carbon Dioxide BUN Creatinine Glucose POC Glucose 142 H 119 H Lactic Acid Calcium Ferritin AST Alkaline Phosphatase Lactate Dehydrogenase Total Creatine Kinase CK-MB (CK-2) C-Reactive Protein Total Protein Albumin Troponin T HDL Cholesterol Urine WBC (Auto) Urine Creatinine Urine Total Protein Coronavirus (PCR) Crossmatch 06/13/20 06/13/20 06/13/20 12:28 17:55 21:17 WBC RBC Hgb Hct MCHC RDW Lymph % (Auto) [place] % (Auto) Eos % (Auto) Lymph # [place] # Seg Neutrophils % Seg Neuts % (Manual) Lymphocytes % (Manual) Seg Neutrophils # Seg Neutrophils # Man Lymphocytes # (Manual) Monocytes % (Manual) Eosinophils % (Manual) Monocytes # (Manual) Eosinophils # (Manual) D-Dimer Heparin Anti-Xa Level ABG pH POC ABG pCO2 POC ABG pO2 ABG pO2 ABG HCO3 ABG O2 Saturation ABG Base Excess ABG Hemoglobin ABG Oxyhemoglobin VBG pH Oxyhemoglobin Sodium Potassium Chloride Carbon Dioxide BUN 61 H Creatinine Glucose 131 H POC Glucose 165 H 174 H Lactic Acid Calcium Ferritin AST Alkaline Phosphatase Lactate Dehydrogenase Total Creatine Kinase CK-MB (CK-2) C-Reactive Protein Total Protein Albumin Troponin T HDL Cholesterol Urine WBC (Auto) Urine Creatinine Urine Total Protein Coronavirus (PCR) Crossmatch 06/13/20 06/13/20 06/14/20 21:17 23:50 05:34 WBC RBC Hgb Hct MCHC RDW Lymph % (Auto) [place] % (Auto) Eos % (Auto) Lymph # [place] # Seg Neutrophils % Seg Neuts % (Manual) Lymphocytes % (Manual) Seg Neutrophils # Seg Neutrophils # Man Lymphocytes # (Manual) Monocytes % (Manual) Eosinophils % (Manual) Monocytes # (Manual) Eosinophils # (Manual) D-Dimer Heparin Anti-Xa Level 0.72 H ABG pH POC ABG pCO2 POC ABG pO2 ABG pO2 ABG HCO3 ABG O2 Saturation ABG Base Excess ABG Hemoglobin ABG Oxyhemoglobin VBG pH Oxyhemoglobin Sodium 146 H Potassium Chloride 107.6 H Carbon Dioxide BUN 61 H Creatinine 1.3 H Glucose 135 H POC Glucose 146 H Lactic Acid Calcium Ferritin AST Alkaline Phosphatase Lactate Dehydrogenase Total Creatine Kinase CK-MB (CK-2) C-Reactive Protein Total Protein Albumin Troponin T HDL Cholesterol Urine WBC (Auto) Urine Creatinine Urine Total Protein Coronavirus (PCR) Crossmatch 06/14/20 06/14/20 06/14/20 06:11 09:28 11:30 WBC RBC Hgb Hct MCHC RDW Lymph % (Auto) [place] % (Auto) Eos % (Auto) Lymph # [place] # Seg Neutrophils % Seg Neuts % (Manual) Lymphocytes % (Manual) Seg Neutrophils # Seg Neutrophils # Man Lymphocytes # (Manual) Monocytes % (Manual) Eosinophils % (Manual) Monocytes # (Manual) Eosinophils # (Manual) D-Dimer Heparin Anti-Xa Level 0.90 H ABG pH POC ABG pCO2 POC ABG pO2 ABG pO2 ABG HCO3 ABG O2 Saturation ABG Base Excess ABG Hemoglobin ABG Oxyhemoglobin VBG pH Oxyhemoglobin Sodium Potassium Chloride Carbon Dioxide BUN Creatinine Glucose POC Glucose 141 H 186 H Lactic Acid Calcium Ferritin AST Alkaline Phosphatase Lactate Dehydrogenase Total Creatine Kinase CK-MB (CK-2) C-Reactive Protein Total Protein Albumin Troponin T HDL Cholesterol Urine WBC (Auto) Urine Creatinine Urine Total Protein Coronavirus (PCR) Crossmatch 06/14/20 06/14/20 06/14/20 16:07 18:16 23:51 WBC RBC Hgb Hct MCHC RDW Lymph % (Auto) [place] % (Auto) Eos % (Auto) Lymph # [place] # Seg Neutrophils % Seg Neuts % (Manual) Lymphocytes % (Manual) Seg Neutrophils # Seg Neutrophils # Man Lymphocytes # (Manual) Monocytes % (Manual) Eosinophils % (Manual) Monocytes # (Manual) Eosinophils # (Manual) D-Dimer Heparin Anti-Xa Level 0.82 H ABG pH POC ABG pCO2 POC ABG pO2 ABG pO2 ABG HCO3 ABG O2 Saturation ABG Base Excess ABG Hemoglobin ABG Oxyhemoglobin VBG pH Oxyhemoglobin Sodium Potassium Chloride Carbon Dioxide BUN Creatinine Glucose POC Glucose 106 H 154 H Lactic Acid Calcium Ferritin AST Alkaline Phosphatase Lactate Dehydrogenase Total Creatine Kinase CK-MB (CK-2) C-Reactive Protein Total Protein Albumin Troponin T HDL Cholesterol Urine WBC (Auto) Urine Creatinine Urine Total Protein Coronavirus (PCR) Crossmatch 06/15/20 06/15/20 06/15/20 04:24 04:24 05:59 WBC RBC 2.75 L Hgb 7.9 L Hct 24.0 L MCHC RDW 16.4 H Lymph % (Auto) 12.9 L [place] % (Auto) 8.7 H Eos % (Auto) 4.6 H Lymph # 1.1 L [place] # Seg Neutrophils % 73.2 H Seg Neuts % (Manual) Lymphocytes % (Manual) Seg Neutrophils # Seg Neutrophils # Man Lymphocytes # (Manual) Monocytes % (Manual) Eosinophils % (Manual) Monocytes # (Manual) Eosinophils # (Manual) D-Dimer Heparin Anti-Xa Level ABG pH POC ABG pCO2 POC ABG pO2 ABG pO2 ABG HCO3 ABG O2 Saturation ABG Base Excess ABG Hemoglobin ABG Oxyhemoglobin VBG pH Oxyhemoglobin Sodium Potassium 3.4 L Chloride Carbon Dioxide BUN 55 H Creatinine 1.3 H Glucose 142 H POC Glucose 131 H Lactic Acid Calcium Ferritin AST Alkaline Phosphatase Lactate Dehydrogenase Total Creatine Kinase CK-MB (CK-2) C-Reactive Protein Total Protein Albumin Troponin T HDL Cholesterol Urine WBC (Auto) Urine Creatinine Urine Total Protein Coronavirus (PCR) Crossmatch 06/15/20 06/15/20 06/16/20 12:33 17:07 00:22 WBC RBC Hgb Hct MCHC RDW Lymph % (Auto) [place] % (Auto) Eos % (Auto) Lymph # [place] # Seg Neutrophils % Seg Neuts % (Manual) Lymphocytes % (Manual) Seg Neutrophils # Seg Neutrophils # Man Lymphocytes # (Manual) Monocytes % (Manual) Eosinophils % (Manual) Monocytes # (Manual) Eosinophils # (Manual) D-Dimer Heparin Anti-Xa Level 0.21 L ABG pH POC ABG pCO2 POC ABG pO2 ABG pO2 ABG HCO3 ABG O2 Saturation ABG Base Excess ABG Hemoglobin ABG Oxyhemoglobin VBG pH Oxyhemoglobin Sodium Potassium Chloride Carbon Dioxide BUN Creatinine Glucose POC Glucose 180 H 185 H Lactic Acid Calcium Ferritin AST Alkaline Phosphatase Lactate Dehydrogenase Total Creatine Kinase CK-MB (CK-2) C-Reactive Protein Total Protein Albumin Troponin T HDL Cholesterol Urine WBC (Auto) Urine Creatinine Urine Total Protein Coronavirus (PCR) Crossmatch 06/16/20 06/16/20 06/16/20 01:45 08:06 09:15 WBC RBC Hgb Hct MCHC RDW Lymph % (Auto) [place] % (Auto) Eos % (Auto) Lymph # [place] # Seg Neutrophils % Seg Neuts % (Manual) Lymphocytes % (Manual) Seg Neutrophils # Seg Neutrophils # Man Lymphocytes # (Manual) Monocytes % (Manual) Eosinophils % (Manual) Monocytes # (Manual) Eosinophils # (Manual) D-Dimer Heparin Anti-Xa Level ABG pH POC ABG pCO2 POC ABG pO2 ABG pO2 ABG HCO3 ABG O2 Saturation ABG Base Excess ABG Hemoglobin ABG Oxyhemoglobin VBG pH Oxyhemoglobin Sodium Potassium Chloride Carbon Dioxide BUN 49 H Creatinine Glucose 154 H POC Glucose 140 H 171 H Lactic Acid Calcium Ferritin AST Alkaline Phosphatase Lactate Dehydrogenase Total Creatine Kinase CK-MB (CK-2) C-Reactive Protein Total Protein Albumin Troponin T HDL Cholesterol Urine WBC (Auto) Urine Creatinine Urine Total Protein Coronavirus (PCR) Crossmatch 06/16/20 06/16/20 06/16/20 10:46 12:33 17:54 WBC RBC Hgb Hct MCHC RDW Lymph % (Auto) [place] % (Auto) Eos % (Auto) Lymph # [place] # Seg Neutrophils % Seg Neuts % (Manual) Lymphocytes % (Manual) Seg Neutrophils # Seg Neutrophils # Man Lymphocytes # (Manual) Monocytes % (Manual) Eosinophils % (Manual) Monocytes # (Manual) Eosinophils # (Manual) D-Dimer Heparin Anti-Xa Level 0.12 L ABG pH POC ABG pCO2 POC ABG pO2 ABG pO2 ABG HCO3 ABG O2 Saturation ABG Base Excess ABG Hemoglobin ABG Oxyhemoglobin VBG pH Oxyhemoglobin Sodium Potassium Chloride Carbon Dioxide BUN Creatinine Glucose POC Glucose 166 H 151 H Lactic Acid Calcium Ferritin AST Alkaline Phosphatase Lactate Dehydrogenase Total Creatine Kinase CK-MB (CK-2) C-Reactive Protein Total Protein Albumin Troponin T HDL Cholesterol Urine WBC (Auto) Urine Creatinine Urine Total Protein Coronavirus (PCR) Crossmatch 06/16/20 06/17/20 06/17/20 18:47 00:00 02:19 WBC RBC Hgb Hct MCHC RDW Lymph % (Auto) [place] % (Auto) Eos % (Auto) Lymph # [place] # Seg Neutrophils % Seg Neuts % (Manual) Lymphocytes % (Manual) Seg Neutrophils # Seg Neutrophils # Man Lymphocytes # (Manual) Monocytes % (Manual) Eosinophils % (Manual) Monocytes # (Manual) Eosinophils # (Manual) D-Dimer Heparin Anti-Xa Level 0.73 H 0.77 H ABG pH POC ABG pCO2 POC ABG pO2 ABG pO2 ABG HCO3 ABG O2 Saturation ABG Base Excess ABG Hemoglobin ABG Oxyhemoglobin VBG pH Oxyhemoglobin Sodium Potassium Chloride Carbon Dioxide BUN Creatinine Glucose POC Glucose 139 H Lactic Acid Calcium Ferritin AST Alkaline Phosphatase Lactate Dehydrogenase Total Creatine Kinase CK-MB (CK-2) C-Reactive Protein Total Protein Albumin Troponin T HDL Cholesterol Urine WBC (Auto) Urine Creatinine Urine Total Protein Coronavirus (PCR) Crossmatch 06/17/20 06/17/20 06/17/20 06:07 11:42 16:43 WBC RBC Hgb Hct MCHC RDW Lymph % (Auto) [place] % (Auto) Eos % (Auto) Lymph # [place] # Seg Neutrophils % Seg Neuts % (Manual) Lymphocytes % (Manual) Seg Neutrophils # Seg Neutrophils # Man Lymphocytes # (Manual) Monocytes % (Manual) Eosinophils % (Manual) Monocytes # (Manual) Eosinophils # (Manual) D-Dimer Heparin Anti-Xa Level 0.73 H ABG pH POC ABG pCO2 POC ABG pO2 ABG pO2 ABG HCO3 ABG O2 Saturation ABG Base Excess ABG Hemoglobin ABG Oxyhemoglobin VBG pH Oxyhemoglobin Sodium Potassium Chloride Carbon Dioxide BUN Creatinine Glucose POC Glucose 169 H 169 H Lactic Acid Calcium Ferritin AST Alkaline Phosphatase Lactate Dehydrogenase Total Creatine Kinase CK-MB (CK-2) C-Reactive Protein Total Protein Albumin Troponin T HDL Cholesterol Urine WBC (Auto) Urine Creatinine Urine Total Protein Coronavirus (PCR) Crossmatch 06/17/20 06/17/20 06/17/20 18:18 23:08 23:16 WBC RBC Hgb Hct MCHC RDW Lymph % (Auto) [place] % (Auto) Eos % (Auto) Lymph # [place] # Seg Neutrophils % Seg Neuts % (Manual) Lymphocytes % (Manual) Seg Neutrophils # Seg Neutrophils # Man Lymphocytes # (Manual) Monocytes % (Manual) Eosinophils % (Manual) Monocytes # (Manual) Eosinophils # (Manual) D-Dimer Heparin Anti-Xa Level 0.71 H ABG pH POC ABG pCO2 POC ABG pO2 ABG pO2 ABG HCO3 ABG O2 Saturation ABG Base Excess ABG Hemoglobin ABG Oxyhemoglobin VBG pH Oxyhemoglobin Sodium Potassium Chloride Carbon Dioxide BUN Creatinine Glucose POC Glucose 159 H 134 H Lactic Acid Calcium Ferritin AST Alkaline Phosphatase Lactate Dehydrogenase Total Creatine Kinase CK-MB (CK-2) C-Reactive Protein Total Protein Albumin Troponin T HDL Cholesterol Urine WBC (Auto) Urine Creatinine Urine Total Protein Coronavirus (PCR) Crossmatch 06/18/20 06/18/20 06/18/20 04:42 05:52 11:50 WBC RBC Hgb Hct MCHC RDW Lymph % (Auto) [place] % (Auto) Eos % (Auto) Lymph # [place] # Seg Neutrophils % Seg Neuts % (Manual) Lymphocytes % (Manual) Seg Neutrophils # Seg Neutrophils # Man Lymphocytes # (Manual) Monocytes % (Manual) Eosinophils % (Manual) Monocytes # (Manual) Eosinophils # (Manual) D-Dimer Heparin Anti-Xa Level ABG pH POC ABG pCO2 POC ABG pO2 ABG pO2 ABG HCO3 ABG O2 Saturation ABG Base Excess ABG Hemoglobin ABG Oxyhemoglobin VBG pH Oxyhemoglobin Sodium Potassium Chloride Carbon Dioxide BUN 44 H Creatinine Glucose 115 H POC Glucose 171 H 167 H Lactic Acid Calcium Ferritin AST Alkaline Phosphatase Lactate Dehydrogenase Total Creatine Kinase CK-MB (CK-2) C-Reactive Protein Total Protein Albumin Troponin T HDL Cholesterol Urine WBC (Auto) Urine Creatinine Urine Total Protein Coronavirus (PCR) Crossmatch 06/18/20 06/19/20 06/19/20 23:46 05:48 07:52 WBC RBC Hgb Hct MCHC RDW Lymph % (Auto) [place] % (Auto) Eos % (Auto) Lymph # [place] # Seg Neutrophils % Seg Neuts % (Manual) Lymphocytes % (Manual) Seg Neutrophils # Seg Neutrophils # Man Lymphocytes # (Manual) Monocytes % (Manual) Eosinophils % (Manual) Monocytes # (Manual) Eosinophils # (Manual) D-Dimer Heparin Anti-Xa Level ABG pH POC ABG pCO2 POC ABG pO2 ABG pO2 ABG HCO3 ABG O2 Saturation ABG Base Excess ABG Hemoglobin ABG Oxyhemoglobin VBG pH Oxyhemoglobin Sodium Potassium Chloride Carbon Dioxide BUN Creatinine Glucose POC Glucose 130 H 207 H 175 H Lactic Acid Calcium Ferritin AST Alkaline Phosphatase Lactate Dehydrogenase Total Creatine Kinase CK-MB (CK-2) C-Reactive Protein Total Protein Albumin Troponin T HDL Cholesterol Urine WBC (Auto) Urine Creatinine Urine Total Protein Coronavirus (PCR) Crossmatch 06/19/20 06/19/20 06/20/20 11:42 22:54 05:17 WBC RBC Hgb Hct MCHC RDW Lymph % (Auto) [place] % (Auto) Eos % (Auto) Lymph # [place] # Seg Neutrophils % Seg Neuts % (Manual) Lymphocytes % (Manual) Seg Neutrophils # Seg Neutrophils # Man Lymphocytes # (Manual) Monocytes % (Manual) Eosinophils % (Manual) Monocytes # (Manual) Eosinophils # (Manual) D-Dimer Heparin Anti-Xa Level ABG pH POC ABG pCO2 POC ABG pO2 ABG pO2 ABG HCO3 ABG O2 Saturation ABG Base Excess ABG Hemoglobin ABG Oxyhemoglobin VBG pH Oxyhemoglobin Sodium Potassium Chloride Carbon Dioxide BUN Creatinine Glucose POC Glucose 166 H 135 H 218 H Lactic Acid Calcium Ferritin AST Alkaline Phosphatase Lactate Dehydrogenase Total Creatine Kinase CK-MB (CK-2) C-Reactive Protein Total Protein Albumin Troponin T HDL Cholesterol Urine WBC (Auto) Urine Creatinine Urine Total Protein Coronavirus (PCR) Crossmatch 06/20/20 06/20/20 06/20/20 12:04 16:25 16:35 WBC RBC Hgb Hct MCHC RDW Lymph % (Auto) [place] % (Auto) Eos % (Auto) Lymph # [place] # Seg Neutrophils % Seg Neuts % (Manual) Lymphocytes % (Manual) Seg Neutrophils # Seg Neutrophils # Man Lymphocytes # (Manual) Monocytes % (Manual) Eosinophils % (Manual) Monocytes # (Manual) Eosinophils # (Manual) D-Dimer Heparin Anti-Xa Level ABG pH POC ABG pCO2 POC ABG pO2 ABG pO2 59.6 L ABG HCO3 28.7 H ABG O2 Saturation 93.5 L ABG Base Excess 3.4 H ABG Hemoglobin 7.2 L ABG Oxyhemoglobin VBG pH Oxyhemoglobin 91.3 L Sodium Potassium Chloride Carbon Dioxide BUN Creatinine Glucose POC Glucose 194 H 137 H Lactic Acid Calcium Ferritin AST Alkaline Phosphatase Lactate Dehydrogenase Total Creatine Kinase CK-MB (CK-2) C-Reactive Protein Total Protein Albumin Troponin T HDL Cholesterol Urine WBC (Auto) Urine Creatinine Urine Total Protein Coronavirus (PCR) Crossmatch 06/20/20 06/21/20 06/21/20 23:59 06:25 12:01 WBC RBC Hgb Hct MCHC RDW Lymph % (Auto) [place] % (Auto) Eos % (Auto) Lymph # [place] # Seg Neutrophils % Seg Neuts % (Manual) Lymphocytes % (Manual) Seg Neutrophils # Seg Neutrophils # Man Lymphocytes # (Manual) Monocytes % (Manual) Eosinophils % (Manual) Monocytes # (Manual) Eosinophils # (Manual) D-Dimer Heparin Anti-Xa Level ABG pH POC ABG pCO2 POC ABG pO2 ABG pO2 ABG HCO3 ABG O2 Saturation ABG Base Excess ABG Hemoglobin ABG Oxyhemoglobin VBG pH Oxyhemoglobin Sodium Potassium Chloride Carbon Dioxide BUN Creatinine Glucose POC Glucose 156 H 177 H 195 H Lactic Acid Calcium Ferritin AST Alkaline Phosphatase Lactate Dehydrogenase Total Creatine Kinase CK-MB (CK-2) C-Reactive Protein Total Protein Albumin Troponin T HDL Cholesterol Urine WBC (Auto) Urine Creatinine Urine Total Protein Coronavirus (PCR) Crossmatch 06/21/20 06/21/20 06/22/20 17:04 21:51 05:06 WBC RBC Hgb Hct MCHC RDW Lymph % (Auto) [place] % (Auto) Eos % (Auto) Lymph # [place] # Seg Neutrophils % Seg Neuts % (Manual) Lymphocytes % (Manual) Seg Neutrophils # Seg Neutrophils # Man Lymphocytes # (Manual) Monocytes % (Manual) Eosinophils % (Manual) Monocytes # (Manual) Eosinophils # (Manual) D-Dimer Heparin Anti-Xa Level ABG pH POC ABG pCO2 POC ABG pO2 ABG pO2 ABG HCO3 ABG O2 Saturation ABG Base Excess ABG Hemoglobin ABG Oxyhemoglobin VBG pH Oxyhemoglobin Sodium Potassium Chloride Carbon Dioxide BUN Creatinine Glucose POC Glucose 156 H 154 H 167 H Lactic Acid Calcium Ferritin AST Alkaline Phosphatase Lactate Dehydrogenase Total Creatine Kinase CK-MB (CK-2) C-Reactive Protein Total Protein Albumin Troponin T HDL Cholesterol Urine WBC (Auto) Urine Creatinine Urine Total Protein Coronavirus (PCR) Crossmatch 06/22/20 06/22/2020 11:20 15:27 16:58 WBC RBC Hgb Hct MCHC RDW Lymph % (Auto) [place] % (Auto) Eos % (Auto) Lymph # [place] # Seg Neutrophils % Seg Neuts % (Manual) Lymphocytes % (Manual) Seg Neutrophils # Seg Neutrophils # Man Lymphocytes # (Manual) Monocytes % (Manual) Eosinophils % (Manual) Monocytes # (Manual) Eosinophils # (Manual) D-Dimer Heparin Anti-Xa Level ABG pH 7.206 L POC ABG pCO2 79.9 H POC ABG pO2 ABG pO2 ABG HCO3 ABG O2 Saturation ABG Base Excess ABG Hemoglobin 8.3 L ABG Oxyhemoglobin VBG pH Oxyhemoglobin Sodium Potassium Chloride Carbon Dioxide BUN Creatinine Glucose POC Glucose 181 H 230 H Lactic Acid Calcium Ferritin AST Alkaline Phosphatase Lactate Dehydrogenase Total Creatine Kinase CK-MB (CK-2) C-Reactive Protein Total Protein Albumin Troponin T HDL Cholesterol Urine WBC (Auto) Urine Creatinine Urine Total Protein Coronavirus (PCR) Crossmatch 06/22/20 06/23/20 06/23/20 22:26 05:49 05:49 WBC RBC 2.58 L Hgb 7.4 L Hct 23.2 L MCHC RDW 17.0 H Lymph % (Auto) [place] % (Auto) 11.2 H Eos % (Auto) Lymph # 1.0 L [place] # Seg Neutrophils % Seg Neuts % (Manual) Lymphocytes % (Manual) Seg Neutrophils # Seg Neutrophils # Man Lymphocytes # (Manual) Monocytes % (Manual) Eosinophils % (Manual) Monocytes # (Manual) Eosinophils # (Manual) D-Dimer Heparin Anti-Xa Level ABG pH POC ABG pCO2 POC ABG pO2 ABG pO2 ABG HCO3 ABG O2 Saturation ABG Base Excess ABG Hemoglobin ABG Oxyhemoglobin VBG pH Oxyhemoglobin Sodium Potassium Chloride Carbon Dioxide BUN 68 H Creatinine 2.4 H Glucose 198 H POC Glucose 195 H Lactic Acid Calcium Ferritin AST Alkaline Phosphatase Lactate Dehydrogenase Total Creatine Kinase CK-MB (CK-2) C-Reactive Protein Total Protein Albumin Troponin T HDL Cholesterol Urine WBC (Auto) Urine Creatinine Urine Total Protein Coronavirus (PCR) Crossmatch 06/23/20 06/23/20 06/23/20 05:50 12:29 12:34 WBC RBC Hgb Hct MCHC RDW Lymph % (Auto) [place] % (Auto) Eos % (Auto) Lymph # [place] # Seg Neutrophils % Seg Neuts % (Manual) Lymphocytes % (Manual) Seg Neutrophils # Seg Neutrophils # Man Lymphocytes # (Manual) Monocytes % (Manual) Eosinophils % (Manual) Monocytes # (Manual) Eosinophils # (Manual) D-Dimer Heparin Anti-Xa Level ABG pH POC ABG pCO2 54.7 H POC ABG pO2 68.8 L ABG pO2 ABG HCO3 ABG O2 Saturation ABG Base Excess ABG Hemoglobin 9.8 L ABG Oxyhemoglobin 92.6 L VBG pH Oxyhemoglobin Sodium Potassium Chloride Carbon Dioxide BUN Creatinine Glucose POC Glucose 202 H 218 H Lactic Acid Calcium Ferritin AST Alkaline Phosphatase Lactate Dehydrogenase Total Creatine Kinase CK-MB (CK-2) C-Reactive Protein Total Protein Albumin Troponin T HDL Cholesterol Urine WBC (Auto) Urine Creatinine Urine Total Protein Coronavirus (PCR) Crossmatch 06/23/20 06/23/20 06/24/20 16:02 22:22 01:06 WBC RBC Hgb Hct MCHC RDW Lymph % (Auto) [place] % (Auto) Eos % (Auto) Lymph # [place] # Seg Neutrophils % Seg Neuts % (Manual) Lymphocytes % (Manual) Seg Neutrophils # Seg Neutrophils # Man Lymphocytes # (Manual) Monocytes % (Manual) Eosinophils % (Manual) Monocytes # (Manual) Eosinophils # (Manual) D-Dimer Heparin Anti-Xa Level ABG pH POC ABG pCO2 POC ABG pO2 ABG pO2 ABG HCO3 ABG O2 Saturation ABG Base Excess ABG Hemoglobin ABG Oxyhemoglobin VBG pH Oxyhemoglobin Sodium Potassium Chloride Carbon Dioxide BUN Creatinine Glucose POC Glucose 190 H 166 H 171 H Lactic Acid Calcium Ferritin AST Alkaline Phosphatase Lactate Dehydrogenase Total Creatine Kinase CK-MB (CK-2) C-Reactive Protein Total Protein Albumin Troponin T HDL Cholesterol Urine WBC (Auto) Urine Creatinine Urine Total Protein Coronavirus (PCR) Crossmatch 06/24/20 06/24/20 06/24/20 04:48 05:35 11:48 WBC RBC Hgb Hct MCHC RDW Lymph % (Auto) [place] % (Auto) Eos % (Auto) Lymph # [place] # Seg Neutrophils % Seg Neuts % (Manual) Lymphocytes % (Manual) Seg Neutrophils # Seg Neutrophils # Man Lymphocytes # (Manual) Monocytes % (Manual) Eosinophils % (Manual) Monocytes # (Manual) Eosinophils # (Manual) D-Dimer Heparin Anti-Xa Level ABG pH POC ABG pCO2 POC ABG pO2 ABG pO2 ABG HCO3 ABG O2 Saturation ABG Base Excess ABG Hemoglobin ABG Oxyhemoglobin VBG pH Oxyhemoglobin Sodium Potassium Chloride Carbon Dioxide BUN 75 H Creatinine 2.6 H Glucose 179 H POC Glucose 172 H 153 H Lactic Acid Calcium Ferritin AST Alkaline Phosphatase Lactate Dehydrogenase Total Creatine Kinase CK-MB (CK-2) C-Reactive Protein Total Protein Albumin Troponin T HDL Cholesterol Urine WBC (Auto) Urine Creatinine Urine Total Protein Coronavirus (PCR) Crossmatch 06/24/20 06/24/20 06/25/20 16:38 21:52 12:00 WBC RBC Hgb Hct MCHC RDW Lymph % (Auto) [place] % (Auto) Eos % (Auto) Lymph # [place] # Seg Neutrophils % Seg Neuts % (Manual) Lymphocytes % (Manual) Seg Neutrophils # Seg Neutrophils # Man Lymphocytes # (Manual) Monocytes % (Manual) Eosinophils % (Manual) Monocytes # (Manual) Eosinophils # (Manual) D-Dimer Heparin Anti-Xa Level ABG pH POC ABG pCO2 POC ABG pO2 ABG pO2 ABG HCO3 ABG O2 Saturation ABG Base Excess ABG Hemoglobin ABG Oxyhemoglobin VBG pH Oxyhemoglobin Sodium Potassium Chloride Carbon Dioxide BUN Creatinine Glucose POC Glucose 123 H 115 H 203 H Lactic Acid Calcium Ferritin AST Alkaline Phosphatase Lactate Dehydrogenase Total Creatine Kinase CK-MB (CK-2) C-Reactive Protein Total Protein Albumin Troponin T HDL Cholesterol Urine WBC (Auto) Urine Creatinine Urine Total Protein Coronavirus (PCR) Crossmatch 06/25/20 06/25/20 06/25/20 15:43 16:37 23:02 WBC RBC Hgb Hct MCHC RDW Lymph % (Auto) [place] % (Auto) Eos % (Auto) Lymph # [place] # Seg Neutrophils % Seg Neuts % (Manual) Lymphocytes % (Manual) Seg Neutrophils # Seg Neutrophils # Man Lymphocytes # (Manual) Monocytes % (Manual) Eosinophils % (Manual) Monocytes # (Manual) Eosinophils # (Manual) D-Dimer Heparin Anti-Xa Level ABG pH POC ABG pCO2 POC ABG pO2 ABG pO2 ABG HCO3 ABG O2 Saturation ABG Base Excess ABG Hemoglobin ABG Oxyhemoglobin VBG pH Oxyhemoglobin Sodium Potassium Chloride Carbon Dioxide BUN 71 H Creatinine 1.8 H Glucose 170 H POC Glucose 191 H 126 H Lactic Acid Calcium 8.2 L Ferritin AST Alkaline Phosphatase Lactate Dehydrogenase Total Creatine Kinase CK-MB (CK-2) C-Reactive Protein Total Protein Albumin Troponin T HDL Cholesterol Urine WBC (Auto) Urine Creatinine Urine Total Protein Coronavirus (PCR) Crossmatch 06/26/20 06/26/20 06/26/20 06:34 06:34 09:27 WBC RBC 2.41 L Hgb 6.9 L Hct 21.5 L MCHC RDW 16.7 H Lymph % (Auto) 10.9 L [place] % (Auto) 9.6 H Eos % (Auto) Lymph # 0.7 L [place] # Seg Neutrophils % 75.4 H Seg Neuts % (Manual) Lymphocytes % (Manual) Seg Neutrophils # Seg Neutrophils # Man Lymphocytes # (Manual) Monocytes % (Manual) Eosinophils % (Manual) Monocytes # (Manual) Eosinophils # (Manual) D-Dimer Heparin Anti-Xa Level ABG pH POC ABG pCO2 POC ABG pO2 ABG pO2 ABG HCO3 ABG O2 Saturation ABG Base Excess ABG Hemoglobin ABG Oxyhemoglobin VBG pH Oxyhemoglobin Sodium Potassium Chloride Carbon Dioxide BUN 77 H Creatinine 1.9 H Glucose 190 H POC Glucose Lactic Acid Calcium Ferritin AST Alkaline Phosphatase Lactate Dehydrogenase Total Creatine Kinase CK-MB (CK-2) C-Reactive Protein Total Protein Albumin Troponin T HDL Cholesterol Urine WBC (Auto) Urine Creatinine Urine Total Protein Coronavirus (PCR) Crossmatch See Detail 06/26/20 06/26/20 06/26/20 12:15 16:28 17:28 WBC RBC Hgb Hct MCHC RDW Lymph % (Auto) [place] % (Auto) Eos % (Auto) Lymph # [place] # Seg Neutrophils % Seg Neuts % (Manual) Lymphocytes % (Manual) Seg Neutrophils # Seg Neutrophils # Man Lymphocytes # (Manual) Monocytes % (Manual) Eosinophils % (Manual) Monocytes # (Manual) Eosinophils # (Manual) D-Dimer Heparin Anti-Xa Level ABG pH POC ABG pCO2 POC ABG pO2 ABG pO2 ABG HCO3 ABG O2 Saturation ABG Base Excess ABG Hemoglobin ABG Oxyhemoglobin VBG pH Oxyhemoglobin Sodium Potassium Chloride Carbon Dioxide BUN Creatinine Glucose POC Glucose 187 H 149 H 189 H Lactic Acid Calcium Ferritin AST Alkaline Phosphatase Lactate Dehydrogenase Total Creatine Kinase CK-MB (CK-2) C-Reactive Protein Total Protein Albumin Troponin T HDL Cholesterol Urine WBC (Auto) Urine Creatinine Urine Total Protein Coronavirus (PCR) Crossmatch 0906/26/20 06/26/20 18:30 18:30 18:30 WBC RBC 2.87 L Hgb 8.2 L Hct 25.9 L MCHC RDW 17.8 H Lymph % (Auto) [place] % (Auto) Eos % (Auto) Lymph # [place] # Seg Neutrophils % Seg Neuts % (Manual) 83.0 H Lymphocytes % (Manual) 8.0 L Seg Neutrophils # Seg Neutrophils # Man Lymphocytes # (Manual) 0.6 L Monocytes % (Manual) Eosinophils % (Manual) Monocytes # (Manual) Eosinophils # (Manual) D-Dimer Heparin Anti-Xa Level ABG pH POC ABG pCO2 POC ABG pO2 ABG pO2 ABG HCO3 ABG O2 Saturation ABG Base Excess ABG Hemoglobin ABG Oxyhemoglobin VBG pH Oxyhemoglobin Sodium Potassium Chloride Carbon Dioxide BUN 80 H Creatinine 2.1 H Glucose 260 H POC Glucose Lactic Acid 4.30 H* Calcium 8.3 L Ferritin AST Alkaline Phosphatase Lactate Dehydrogenase Total Creatine Kinase CK-MB (CK-2) C-Reactive Protein Total Protein Albumin Troponin T HDL Cholesterol Urine WBC (Auto) Urine Creatinine Urine Total Protein Coronavirus (PCR) Crossmatch 06/26/20 06/27/20 06/27/20 18:50 01:00 04:29 WBC RBC Hgb Hct MCHC RDW Lymph % (Auto) [place] % (Auto) Eos % (Auto) Lymph # [place] # Seg Neutrophils % Seg Neuts % (Manual) Lymphocytes % (Manual) Seg Neutrophils # Seg Neutrophils # Man Lymphocytes # (Manual) Monocytes % (Manual) Eosinophils % (Manual) Monocytes # (Manual) Eosinophils # (Manual) D-Dimer Heparin Anti-Xa Level ABG pH 7.296 L POC ABG pCO2 POC ABG pO2 ABG pO2 116.5 H 200.5 H ABG HCO3 28.4 H ABG O2 Saturation 99.3 H ABG Base Excess 3.7 H ABG Hemoglobin 5.6 L ABG Oxyhemoglobin VBG pH Oxyhemoglobin Sodium Potassium Chloride Carbon Dioxide BUN Creatinine Glucose POC Glucose 123 H Lactic Acid Calcium Ferritin AST Alkaline Phosphatase Lactate Dehydrogenase Total Creatine Kinase CK-MB (CK-2) C-Reactive Protein Total Protein Albumin Troponin T HDL Cholesterol Urine WBC (Auto) Urine Creatinine Urine Total Protein Coronavirus (PCR) Crossmatch 06/27/20 06/27/20 06/27/20 05:00 05:00 05:00 WBC RBC 2.75 L Hgb 7.9 L Hct 24.3 L MCHC RDW 17.1 H Lymph % (Auto) 8.5 L [place] % (Auto) 12.6 H Eos % (Auto) Lymph # 0.7 L [place] # 1.0 H Seg Neutrophils % 77.5 H Seg Neuts % (Manual) Lymphocytes % (Manual) Seg Neutrophils # Seg Neutrophils # Man Lymphocytes # (Manual) Monocytes % (Manual) Eosinophils % (Manual) Monocytes # (Manual) Eosinophils # (Manual) D-Dimer Heparin Anti-Xa Level ABG pH POC ABG pCO2 POC ABG pO2 ABG pO2 ABG HCO3 ABG O2 Saturation ABG Base Excess ABG Hemoglobin ABG Oxyhemoglobin VBG pH Oxyhemoglobin Sodium Potassium Chloride Carbon Dioxide BUN 80 H Creatinine 2.0 H Glucose 129 H POC Glucose Lactic Acid 0.60 L Calcium 7.9 L Ferritin AST Alkaline Phosphatase Lactate Dehydrogenase Total Creatine Kinase CK-MB (CK-2) C-Reactive Protein Total Protein Albumin Troponin T HDL Cholesterol Urine WBC (Auto) Urine Creatinine Urine Total Protein Coronavirus (PCR) Crossmatch 06/27/20 06/27/20 06/27/20 05:23 13:46 17:25 WBC RBC Hgb Hct MCHC RDW Lymph % (Auto) [place] % (Auto) Eos % (Auto) Lymph # [place] # Seg Neutrophils % Seg Neuts % (Manual) Lymphocytes % (Manual) Seg Neutrophils # Seg Neutrophils # Man Lymphocytes # (Manual) Monocytes % (Manual) Eosinophils % (Manual) Monocytes # (Manual) Eosinophils # (Manual) D-Dimer Heparin Anti-Xa Level ABG pH POC ABG pCO2 POC ABG pO2 ABG pO2 ABG HCO3 ABG O2 Saturation ABG Base Excess ABG Hemoglobin ABG Oxyhemoglobin VBG pH Oxyhemoglobin Sodium Potassium Chloride Carbon Dioxide BUN Creatinine Glucose POC Glucose 109 H 158 H 162 H Lactic Acid Calcium Ferritin AST Alkaline Phosphatase Lactate Dehydrogenase Total Creatine Kinase CK-MB (CK-2) C-Reactive Protein Total Protein Albumin Troponin T HDL Cholesterol Urine WBC (Auto) Urine Creatinine Urine Total Protein Coronavirus (PCR) Crossmatch 06/27/20 06/27/20 06/28/20 18:43 23:46 04:05 WBC RBC Hgb 7.7 L Hct 22.1 L MCHC RDW Lymph % (Auto) [place] % (Auto) Eos % (Auto) Lymph # [place] # Seg Neutrophils % Seg Neuts % (Manual) Lymphocytes % (Manual) Seg Neutrophils # Seg Neutrophils # Man Lymphocytes # (Manual) Monocytes % (Manual) Eosinophils % (Manual) Monocytes # (Manual) Eosinophils # (Manual) D-Dimer Heparin Anti-Xa Level ABG pH POC ABG pCO2 POC ABG pO2 ABG pO2 102.7 H ABG HCO3 28.7 H ABG O2 Saturation ABG Base Excess 3.7 H ABG Hemoglobin ABG Oxyhemoglobin VBG pH Oxyhemoglobin Sodium Potassium Chloride Carbon Dioxide BUN Creatinine Glucose POC Glucose 142 H Lactic Acid Calcium Ferritin AST Alkaline Phosphatase Lactate Dehydrogenase Total Creatine Kinase CK-MB (CK-2) C-Reactive Protein Total Protein Albumin Troponin T HDL Cholesterol Urine WBC (Auto) Urine Creatinine Urine Total Protein Coronavirus (PCR) Crossmatch 06/28/20 06/28/20 06/28/20 09:47 09:47 12:02 WBC RBC 2.53 L Hgb 7.4 L Hct 22.2 L MCHC RDW 16.8 H Lymph % (Auto) [place] % (Auto) 13.5 H Eos % (Auto) Lymph # 1.1 L [place] # 1.0 H Seg Neutrophils % Seg Neuts % (Manual) Lymphocytes % (Manual) Seg Neutrophils # Seg Neutrophils # Man Lymphocytes # (Manual) Monocytes % (Manual) Eosinophils % (Manual) Monocytes # (Manual) Eosinophils # (Manual) D-Dimer Heparin Anti-Xa Level ABG pH POC ABG pCO2 POC ABG pO2 ABG pO2 ABG HCO3 ABG O2 Saturation ABG Base Excess ABG Hemoglobin ABG Oxyhemoglobin VBG pH Oxyhemoglobin Sodium Potassium Chloride Carbon Dioxide BUN 80 H Creatinine 1.5 H Glucose 139 H POC Glucose 169 H Lactic Acid Calcium 7.9 L Ferritin AST Alkaline Phosphatase Lactate Dehydrogenase Total Creatine Kinase CK-MB (CK-2) C-Reactive Protein Total Protein 5.0 L Albumin 2.1 L Troponin T HDL Cholesterol Urine WBC (Auto) Urine Creatinine Urine Total Protein Coronavirus (PCR) Crossmatch 06/28/20 06/28/20 06/28/20 12:30 12:30 17:24 WBC RBC 2.38 L Hgb 7.3 L Hct 20.9 L MCHC 35 H RDW 16.7 H Lymph % (Auto) [place] % (Auto) Eos % (Auto) Lymph # [place] # Seg Neutrophils % Seg Neuts % (Manual) Lymphocytes % (Manual) Seg Neutrophils # Seg Neutrophils # Man Lymphocytes # (Manual) Monocytes % (Manual) Eosinophils % (Manual) Monocytes # (Manual) Eosinophils # (Manual) D-Dimer Heparin Anti-Xa Level ABG pH POC ABG pCO2 POC ABG pO2 ABG pO2 ABG HCO3 ABG O2 Saturation ABG Base Excess ABG Hemoglobin ABG Oxyhemoglobin VBG pH Oxyhemoglobin Sodium Potassium Chloride Carbon Dioxide BUN 74 H Creatinine 1.5 H Glucose 143 H POC Glucose 173 H Lactic Acid Calcium 7.5 L Ferritin AST Alkaline Phosphatase Lactate Dehydrogenase Total Creatine Kinase CK-MB (CK-2) C-Reactive Protein Total Protein Albumin Troponin T HDL Cholesterol Urine WBC (Auto) Urine Creatinine Urine Total Protein Coronavirus (PCR) Crossmatch 06/29/20 06/29/20 06/29/20 00:02 03:54 04:38 WBC RBC 2.55 L Hgb 7.3 L Hct 22.4 L MCHC RDW 16.4 H Lymph % (Auto) 13.3 L [place] % (Auto) 12.5 H Eos % (Auto) Lymph # 1.1 L [place] # 1.0 H Seg Neutrophils % Seg Neuts % (Manual) Lymphocytes % (Manual) Seg Neutrophils # Seg Neutrophils # Man Lymphocytes # (Manual) Monocytes % (Manual) Eosinophils % (Manual) Monocytes # (Manual) Eosinophils # (Manual) D-Dimer Heparin Anti-Xa Level ABG pH POC ABG pCO2 POC ABG pO2 ABG pO2 ABG HCO3 26.9 H ABG O2 Saturation ABG Base Excess ABG Hemoglobin 6.9 L ABG Oxyhemoglobin VBG pH Oxyhemoglobin Sodium Potassium Chloride Carbon Dioxide BUN Creatinine Glucose POC Glucose 142 H Lactic Acid Calcium Ferritin AST Alkaline Phosphatase Lactate Dehydrogenase Total Creatine Kinase CK-MB (CK-2) C-Reactive Protein Total Protein Albumin Troponin T HDL Cholesterol Urine WBC (Auto) Urine Creatinine Urine Total Protein Coronavirus (PCR) Crossmatch 06/29/20 06/29/20 06/29/20 04:38 05:38 12:25 WBC RBC Hgb Hct MCHC RDW Lymph % (Auto) [place] % (Auto) Eos % (Auto) Lymph # [place] # Seg Neutrophils % Seg Neuts % (Manual) Lymphocytes % (Manual) Seg Neutrophils # Seg Neutrophils # Man Lymphocytes # (Manual) Monocytes % (Manual) Eosinophils % (Manual) Monocytes # (Manual) Eosinophils # (Manual) D-Dimer Heparin Anti-Xa Level ABG pH POC ABG pCO2 POC ABG pO2 ABG pO2 ABG HCO3 ABG O2 Saturation ABG Base Excess ABG Hemoglobin ABG Oxyhemoglobin VBG pH Oxyhemoglobin Sodium Potassium Chloride 107.8 H Carbon Dioxide BUN 72 H Creatinine 1.4 H Glucose 127 H POC Glucose 122 H 138 H Lactic Acid Calcium 7.4 L Ferritin AST Alkaline Phosphatase Lactate Dehydrogenase Total Creatine Kinase CK-MB (CK-2) C-Reactive Protein Total Protein Albumin Troponin T HDL Cholesterol Urine WBC (Auto) Urine Creatinine Urine Total Protein Coronavirus (PCR) Crossmatch 06/29/20 06/29/20 06/29/20 14:45 14:45 14:45 WBC RBC Hgb Hct MCHC RDW Lymph % (Auto) [place] % (Auto) Eos % (Auto) Lymph # [place] # Seg Neutrophils % Seg Neuts % (Manual) Lymphocytes % (Manual) Seg Neutrophils # Seg Neutrophils # Man Lymphocytes # (Manual) Monocytes % (Manual) Eosinophils % (Manual) Monocytes # (Manual) Eosinophils # (Manual) D-Dimer 2310.15 H Heparin Anti-Xa Level ABG pH POC ABG pCO2 POC ABG pO2 ABG pO2 ABG HCO3 ABG O2 Saturation ABG Base Excess ABG Hemoglobin ABG Oxyhemoglobin VBG pH Oxyhemoglobin Sodium Potassium Chloride Carbon Dioxide BUN Creatinine Glucose POC Glucose Lactic Acid Calcium Ferritin 223.6 H AST Alkaline Phosphatase Lactate Dehydrogenase 367 H Total Creatine Kinase CK-MB (CK-2) C-Reactive Protein 3.60 H Total Protein Albumin Troponin T HDL Cholesterol Urine WBC (Auto) Urine Creatinine Urine Total Protein Coronavirus (PCR) Crossmatch 06/29/20 06/29/20 06/29/20 18:27 23:35 Unknown WBC RBC Hgb Hct MCHC RDW Lymph % (Auto) [place] % (Auto) Eos % (Auto) Lymph # [place] # Seg Neutrophils % Seg Neuts % (Manual) Lymphocytes % (Manual) Seg Neutrophils # Seg Neutrophils # Man Lymphocytes # (Manual) Monocytes % (Manual) Eosinophils % (Manual) Monocytes # (Manual) Eosinophils # (Manual) D-Dimer Heparin Anti-Xa Level ABG pH POC ABG pCO2 POC ABG pO2 ABG pO2 ABG HCO3 ABG O2 Saturation ABG Base Excess ABG Hemoglobin ABG Oxyhemoglobin VBG pH Oxyhemoglobin Sodium Potassium Chloride Carbon Dioxide BUN Creatinine Glucose POC Glucose 112 H 140 H Lactic Acid Calcium Ferritin AST Alkaline Phosphatase Lactate Dehydrogenase Total Creatine Kinase CK-MB (CK-2) C-Reactive Protein Total Protein Albumin Troponin T HDL Cholesterol Urine WBC (Auto) Urine Creatinine Urine Total Protein Coronavirus (PCR) Positive A Crossmatch 06/30/20 06/30/20 06/30/20 04:10 04:10 06:09 WBC RBC 2.44 L Hgb 7.1 L Hct 21.5 L MCHC RDW 16.6 H Lymph % (Auto) 11.0 L [place] % (Auto) 10.8 H Eos % (Auto) Lymph # 0.9 L [place] # 0.9 H Seg Neutrophils % 73.7 H Seg Neuts % (Manual) Lymphocytes % (Manual) Seg Neutrophils # Seg Neutrophils # Man Lymphocytes # (Manual) Monocytes % (Manual) Eosinophils % (Manual) Monocytes # (Manual) Eosinophils # (Manual) D-Dimer Heparin Anti-Xa Level ABG pH POC ABG pCO2 POC ABG pO2 ABG pO2 ABG HCO3 ABG O2 Saturation ABG Base Excess ABG Hemoglobin ABG Oxyhemoglobin VBG pH Oxyhemoglobin Sodium Potassium Chloride 109.1 H Carbon Dioxide BUN 74 H Creatinine 1.3 H Glucose 191 H POC Glucose 187 H Lactic Acid Calcium 7.8 L Ferritin AST Alkaline Phosphatase Lactate Dehydrogenase Total Creatine Kinase CK-MB (CK-2) C-Reactive Protein Total Protein Albumin Troponin T HDL Cholesterol Urine WBC (Auto) Urine Creatinine Urine Total Protein Coronavirus (PCR) Crossmatch 06/30/20 06/30/20 06/30/20 12:04 17:43 23:41 WBC RBC Hgb Hct MCHC RDW Lymph % (Auto) [place] % (Auto) Eos % (Auto) Lymph # [place] # Seg Neutrophils % Seg Neuts % (Manual) Lymphocytes % (Manual) Seg Neutrophils # Seg Neutrophils # Man Lymphocytes # (Manual) Monocytes % (Manual) Eosinophils % (Manual) Monocytes # (Manual) Eosinophils # (Manual) D-Dimer Heparin Anti-Xa Level ABG pH POC ABG pCO2 POC ABG pO2 ABG pO2 ABG HCO3 ABG O2 Saturation ABG Base Excess ABG Hemoglobin ABG Oxyhemoglobin VBG pH Oxyhemoglobin Sodium Potassium Chloride Carbon Dioxide BUN Creatinine Glucose POC Glucose 112 H 177 H 143 H Lactic Acid Calcium Ferritin AST Alkaline Phosphatase Lactate Dehydrogenase Total Creatine Kinase CK-MB (CK-2) C-Reactive Protein Total Protein Albumin Troponin T HDL Cholesterol Urine WBC (Auto) Urine Creatinine Urine Total Protein Coronavirus (PCR) Crossmatch 07/01/20 07/01/20 07/01/20 05:02 05:52 06:01 WBC 12.6 H RBC 2.95 L Hgb 8.2 L Hct 26.0 L MCHC RDW 16.9 H Lymph % (Auto) [place] % (Auto) Eos % (Auto) Lymph # [place] # Seg Neutrophils % Seg Neuts % (Manual) Lymphocytes % (Manual) Seg Neutrophils # Seg Neutrophils # Man 8.6 H Lymphocytes # (Manual) Monocytes % (Manual) Eosinophils % (Manual) 5.0 H Monocytes # (Manual) Eosinophils # (Manual) 0.6 H D-Dimer Heparin Anti-Xa Level ABG pH POC ABG pCO2 POC ABG pO2 ABG pO2 ABG HCO3 ABG O2 Saturation ABG Base Excess ABG Hemoglobin 8.2 L ABG Oxyhemoglobin VBG pH Oxyhemoglobin Sodium Potassium Chloride Carbon Dioxide BUN Creatinine Glucose POC Glucose 129 H Lactic Acid Calcium Ferritin AST Alkaline Phosphatase Lactate Dehydrogenase Total Creatine Kinase CK-MB (CK-2) C-Reactive Protein Total Protein Albumin Troponin T HDL Cholesterol Urine WBC (Auto) Urine Creatinine Urine Total Protein Coronavirus (PCR) Crossmatch 07/01/20 07/01/20 07/01/20 06:01 06:01 06:08 WBC RBC Hgb Hct MCHC RDW Lymph % (Auto) [place] % (Auto) Eos % (Auto) Lymph # [place] # Seg Neutrophils % Seg Neuts % (Manual) Lymphocytes % (Manual) Seg Neutrophils # Seg Neutrophils # Man Lymphocytes # (Manual) Monocytes % (Manual) Eosinophils % (Manual) Monocytes # (Manual) Eosinophils # (Manual) D-Dimer Heparin Anti-Xa Level ABG pH POC ABG pCO2 POC ABG pO2 ABG pO2 ABG HCO3 ABG O2 Saturation ABG Base Excess ABG Hemoglobin ABG Oxyhemoglobin VBG pH Oxyhemoglobin Sodium 147 H Potassium Chloride 108.0 H Carbon Dioxide BUN 71 H Creatinine 1.3 H Glucose 193 H POC Glucose 192 H Lactic Acid Calcium 8.1 L Ferritin AST Alkaline Phosphatase Lactate Dehydrogenase Total Creatine Kinase 300 H CK-MB (CK-2) C-Reactive Protein Total Protein Albumin Troponin T 0.067 H HDL Cholesterol 61 H Urine WBC (Auto) Urine Creatinine Urine Total Protein Coronavirus (PCR) Crossmatch 07/01/20 07/01/20 07/02/20 12:23 17:40 00:18 WBC RBC Hgb Hct MCHC RDW Lymph % (Auto) [place] % (Auto) Eos % (Auto) Lymph # [place] # Seg Neutrophils % Seg Neuts % (Manual) Lymphocytes % (Manual) Seg Neutrophils # Seg Neutrophils # Man Lymphocytes # (Manual) Monocytes % (Manual) Eosinophils % (Manual) Monocytes # (Manual) Eosinophils # (Manual) D-Dimer Heparin Anti-Xa Level ABG pH POC ABG pCO2 POC ABG pO2 ABG pO2 ABG HCO3 ABG O2 Saturation ABG Base Excess ABG Hemoglobin ABG Oxyhemoglobin VBG pH Oxyhemoglobin Sodium Potassium Chloride Carbon Dioxide BUN Creatinine Glucose POC Glucose 111 H 135 H 145 H Lactic Acid Calcium Ferritin AST Alkaline Phosphatase Lactate Dehydrogenase Total Creatine Kinase CK-MB (CK-2) C-Reactive Protein Total Protein Albumin Troponin T HDL Cholesterol Urine WBC (Auto) Urine Creatinine Urine Total Protein Coronavirus (PCR) Crossmatch 07/02/20 07/02/20 07/02/20 04:11 04:23 05:54 WBC RBC Hgb Hct MCHC RDW Lymph % (Auto) [place] % (Auto) Eos % (Auto) Lymph # [place] # Seg Neutrophils % Seg Neuts % (Manual) Lymphocytes % (Manual) Seg Neutrophils # Seg Neutrophils # Man Lymphocytes # (Manual) Monocytes % (Manual) Eosinophils % (Manual) Monocytes # (Manual) Eosinophils # (Manual) D-Dimer Heparin Anti-Xa Level ABG pH POC ABG pCO2 POC ABG pO2 ABG pO2 ABG HCO3 ABG O2 Saturation ABG Base Excess ABG Hemoglobin 5.4 L ABG Oxyhemoglobin VBG pH Oxyhemoglobin Sodium Potassium Chloride 108.6 H Carbon Dioxide BUN 72 H Creatinine Glucose 112 H POC Glucose 137 H Lactic Acid Calcium 7.8 L Ferritin AST Alkaline Phosphatase Lactate Dehydrogenase Total Creatine Kinase CK-MB (CK-2) C-Reactive Protein Total Protein Albumin Troponin T HDL Cholesterol Urine WBC (Auto) Urine Creatinine Urine Total Protein Coronavirus (PCR) Crossmatch 07/02/20 07/02/20 07/02/20 11:38 18:04 23:59 WBC RBC Hgb Hct MCHC RDW Lymph % (Auto) [place] % (Auto) Eos % (Auto) Lymph # [place] # Seg Neutrophils % Seg Neuts % (Manual) Lymphocytes % (Manual) Seg Neutrophils # Seg Neutrophils # Man Lymphocytes # (Manual) Monocytes % (Manual) Eosinophils % (Manual) Monocytes # (Manual) Eosinophils # (Manual) D-Dimer Heparin Anti-Xa Level ABG pH POC ABG pCO2 POC ABG pO2 ABG pO2 ABG HCO3 ABG O2 Saturation ABG Base Excess ABG Hemoglobin ABG Oxyhemoglobin VBG pH Oxyhemoglobin Sodium Potassium Chloride Carbon Dioxide BUN Creatinine Glucose POC Glucose 128 H 135 H 156 H Lactic Acid Calcium Ferritin AST Alkaline Phosphatase Lactate Dehydrogenase Total Creatine Kinase CK-MB (CK-2) C-Reactive Protein Total Protein Albumin Troponin T HDL Cholesterol Urine WBC (Auto) Urine Creatinine Urine Total Protein Coronavirus (PCR) Crossmatch 07/03/20 07/03/20 07/03/20 03:49 06:00 11:31 WBC RBC Hgb Hct MCHC RDW Lymph % (Auto) [place] % (Auto) Eos % (Auto) Lymph # [place] # Seg Neutrophils % Seg Neuts % (Manual) Lymphocytes % (Manual) Seg Neutrophils # Seg Neutrophils # Man Lymphocytes # (Manual) Monocytes % (Manual) Eosinophils % (Manual) Monocytes # (Manual) Eosinophils # (Manual) D-Dimer Heparin Anti-Xa Level ABG pH POC ABG pCO2 POC ABG pO2 ABG pO2 121.0 H ABG HCO3 ABG O2 Saturation ABG Base Excess ABG Hemoglobin 8.5 L ABG Oxyhemoglobin VBG pH Oxyhemoglobin Sodium Potassium Chloride Carbon Dioxide BUN Creatinine Glucose POC Glucose 135 H 141 H Lactic Acid Calcium Ferritin AST Alkaline Phosphatase Lactate Dehydrogenase Total Creatine Kinase CK-MB (CK-2) C-Reactive Protein Total Protein Albumin Troponin T HDL Cholesterol Urine WBC (Auto) Urine Creatinine Urine Total Protein Coronavirus (PCR) Crossmatch 07/03/20 07/03/20 07/04/20 16:07 17:40 05:49 WBC RBC Hgb Hct MCHC RDW Lymph % (Auto) [place] % (Auto) Eos % (Auto) Lymph # [place] # Seg Neutrophils % Seg Neuts % (Manual) Lymphocytes % (Manual) Seg Neutrophils # Seg Neutrophils # Man Lymphocytes # (Manual) Monocytes % (Manual) Eosinophils % (Manual) Monocytes # (Manual) Eosinophils # (Manual) D-Dimer Heparin Anti-Xa Level ABG pH POC ABG pCO2 POC ABG pO2 ABG pO2 126.9 H ABG HCO3 ABG O2 Saturation ABG Base Excess ABG Hemoglobin 8.1 L ABG Oxyhemoglobin VBG pH Oxyhemoglobin Sodium Potassium Chloride Carbon Dioxide BUN Creatinine Glucose POC Glucose 120 H 128 H Lactic Acid Calcium Ferritin AST Alkaline Phosphatase Lactate Dehydrogenase Total Creatine Kinase CK-MB (CK-2) C-Reactive Protein Total Protein Albumin Troponin T HDL Cholesterol Urine WBC (Auto) Urine Creatinine Urine Total Protein Coronavirus (PCR) Crossmatch 07/04/20 07/04/20 07/05/20 11:54 18:00 00:07 WBC RBC Hgb Hct MCHC RDW Lymph % (Auto) [place] % (Auto) Eos % (Auto) Lymph # [place] # Seg Neutrophils % Seg Neuts % (Manual) Lymphocytes % (Manual) Seg Neutrophils # Seg Neutrophils # Man Lymphocytes # (Manual) Monocytes % (Manual) Eosinophils % (Manual) Monocytes # (Manual) Eosinophils # (Manual) D-Dimer Heparin Anti-Xa Level ABG pH POC ABG pCO2 POC ABG pO2 ABG pO2 ABG HCO3 ABG O2 Saturation ABG Base Excess ABG Hemoglobin ABG Oxyhemoglobin VBG pH Oxyhemoglobin Sodium Potassium Chloride Carbon Dioxide BUN Creatinine Glucose POC Glucose 168 H 133 H 121 H Lactic Acid Calcium Ferritin AST Alkaline Phosphatase Lactate Dehydrogenase Total Creatine Kinase CK-MB (CK-2) C-Reactive Protein Total Protein Albumin Troponin T HDL Cholesterol Urine WBC (Auto) Urine Creatinine Urine Total Protein Coronavirus (PCR) Crossmatch 07/05/20 07/05/20 07/05/20 01:12 02:30 12:09 WBC RBC 2.35 L Hgb 6.9 L Hct 21.1 L MCHC RDW 16.8 H Lymph % (Auto) [place] % (Auto) Eos % (Auto) Lymph # [place] # Seg Neutrophils % Seg Neuts % (Manual) 74.0 H Lymphocytes % (Manual) 12.0 L Seg Neutrophils # Seg Neutrophils # Man 8.0 H Lymphocytes # (Manual) Monocytes % (Manual) 9.0 H Eosinophils % (Manual) Monocytes # (Manual) 1.0 H Eosinophils # (Manual) D-Dimer Heparin Anti-Xa Level ABG pH POC ABG pCO2 POC ABG pO2 ABG pO2 ABG HCO3 ABG O2 Saturation ABG Base Excess ABG Hemoglobin ABG Oxyhemoglobin VBG pH Oxyhemoglobin Sodium Potassium Chloride Carbon Dioxide BUN Creatinine Glucose POC Glucose 132 H Lactic Acid Calcium Ferritin AST Alkaline Phosphatase Lactate Dehydrogenase Total Creatine Kinase CK-MB (CK-2) C-Reactive Protein Total Protein Albumin Troponin T HDL Cholesterol Urine WBC (Auto) Urine Creatinine Urine Total Protein Coronavirus (PCR) Crossmatch See Detail 07/05/20 07/05/20 07/05/20 13:05 18:04 23:13 WBC RBC 2.57 L Hgb 7.7 L Hct 23.0 L MCHC RDW 16.9 H Lymph % (Auto) [place] % (Auto) Eos % (Auto) Lymph # [place] # Seg Neutrophils % Seg Neuts % (Manual) Lymphocytes % (Manual) Seg Neutrophils # Seg Neutrophils # Man Lymphocytes # (Manual) Monocytes % (Manual) Eosinophils % (Manual) Monocytes # (Manual) Eosinophils # (Manual) D-Dimer Heparin Anti-Xa Level ABG pH 7.32 L POC ABG pCO2 POC ABG pO2 ABG pO2 78.3 L ABG HCO3 ABG O2 Saturation ABG Base Excess -2.6 L ABG Hemoglobin 7.3 L ABG Oxyhemoglobin VBG pH Oxyhemoglobin Sodium Potassium Chloride Carbon Dioxide BUN Creatinine Glucose POC Glucose 160 H Lactic Acid Calcium Ferritin AST Alkaline Phosphatase Lactate Dehydrogenase Total Creatine Kinase CK-MB (CK-2) C-Reactive Protein Total Protein Albumin Troponin T HDL Cholesterol Urine WBC (Auto) Urine Creatinine Urine Total Protein Coronavirus (PCR) Crossmatch 07/05/20 07/05/20 23:13 23:43 WBC RBC Hgb Hct MCHC RDW Lymph % (Auto) [place] % (Auto) Eos % (Auto) Lymph # [place] # Seg Neutrophils % Seg Neuts % (Manual) Lymphocytes % (Manual) Seg Neutrophils # Seg Neutrophils # Man Lymphocytes # (Manual) Monocytes % (Manual) Eosinophils % (Manual) Monocytes # (Manual) Eosinophils # (Manual) D-Dimer Heparin Anti-Xa Level ABG pH POC ABG pCO2 POC ABG pO2 ABG pO2 ABG HCO3 ABG O2 Saturation ABG Base Excess ABG Hemoglobin ABG Oxyhemoglobin VBG pH Oxyhemoglobin Sodium Potassium Chloride Carbon Dioxide 20 L BUN 80 H Creatinine 2.4 H D Glucose 124 H POC Glucose 121 H Lactic Acid Calcium 7.6 L Ferritin AST Alkaline Phosphatase Lactate Dehydrogenase Total Creatine Kinase CK-MB (CK-2) C-Reactive Protein Total Protein Albumin Troponin T HDL Cholesterol Urine WBC (Auto) Urine Creatinine Urine Total Protein Coronavirus (PCR) Crossmatch Chest x-ray: other (none today) Allied health notes reviewed: nursing
[2020-07-06 15:23] LABS: Calcium 7.7 mg/dL (8.4-10.2)
[2020-07-06] MEDS: MAGIC MOUTHWASH 30ML PO SCH ×3 (19:15→20:13)
[2020-07-06 19:59] LABS: Creatinine,Urine 33.3 mg/dL (0.1-20.0)
[2020-07-06] MEDS: INSULIN GLARGINE 100 UNITS/ML SUB-Q SCH (21:51)
[2020-07-07] MEDS: INSULIN LISPRO 100 UNIT/ML VIAL 3 mL SUB-Q SCH ×4 (00:42→21:48)
[2020-07-07] MEDS: METOCLOPRAMIDE 10 MG/2 ML INJ IV SCH ×4 (01:34→19:29)
[2020-07-07] MEDS: hydrALAZINE 25 MG TAB PO SCH ×3 (05:06→21:45)
[2020-07-07] MEDS: HEPARIN 5,000 UNIT/1 ML VIAL SUB-Q SCH ×3 (05:06→21:46)
[2020-07-07 05:27] LABS: Hematocrit 20.7 % (30.3-42.9); Hemoglobin 6.8 gm/dl (10.1-14.3); Mean Corpuscular HGB Conc 33 % (30-34); Mean Corpuscular Volume 91 fl (79-97); Platelet Count 266 K/mm3 (140-440); Red Blood Count 2.28 M/mm3 (3.65-5.03); Red Cell Distribution Width 16.8 % (13.2-15.2)
[2020-07-07] MEDS ORDERED: SODIUM CHLORIDE 0.9% 500 ML 500 ML IV ONE (06:00)
[2020-07-07 06:30] LABS: Total Cells Counted 100
[2020-07-07 06:31] LABS: Anisocytosis Few; Spherocytes Rare
[2020-07-07 06:32] LABS: Burr Cells Rare; Ovalocytes Few; Platelet Estimate Consistent w Auto
--- NOTE | 2020-07-07 08:23 | Progress Note ---
Assessment and Plan Acute hypoxemic respiratory failure on MVS Coronavirus-19 infection. Bilateral pulmonary infiltrates, bilateral pneumonia plus likely element of Pulmonary edema. Bilateral pulmonary edema. Bilateral pleural effusions. History of congestive heart failure. Morbid obesity. History of pulmonary hypertension. History of hypertension. Diabetes. Obesity hypoventilation syndrome. Elevated serum inflammatory markers to include D-dimers and LDH levels. Hyperkalemia at presentation. Metabolic acidosis. Oropharyngeal dysphagia. (AMS is a rate limiting factor to safe extubation; tracheostomy may ultimately be required if persistent) - FENA not pre-renal - nephrology consulted - optimize BP; target MAP . 65 mmHg - to receive 1 unit PRBC - ETT day # 8; will consult for tracheostomy if no improvement in MAS by monday (at initial admission she also had a slow return of function) - continue care as below otherwise while following mental status; - GI evaluation ongoing - continue Modafinil re: lethargy / somnolence - continue daytime PSV trials as tolerated - advance tube feeds to goal rate as tolerated (if OK with GI team) - continue Reglan - Daily SAT and SBT assessment as tolerated - continue to wean supplemental oxygen for target O2 sat's > 90% acutely - VAP bundle addressed - continue lung protective strategies - continue bronchodilators with pulmonary hygiene per RT - wean per pulmonary driven protocols otherwise - continue accuchecks resumed with glycemic control per SSI (While critically ill target blood glucose of 140-180 mg/dL; avoid hypoglycemia) - sedation prn for target RASS 0 to -1 - continue to avoid benzodiazepine's, reduce the possibility of delirium - completed AB's per ID rec's - prn analgesia per CPOT score - Maintenance of sleep-wake cycle, avoid delirium - continue enteral nutritional support at goal rate as tolerated - G.I. & VTE prophylaxis with heparin & famotidine - PT/OT/ROM exercises - continue mobility protocols for pressure ulcer prophylaxis - Monitor hemodynamics closely - continue other care per attending / other consultants - discharge planning ongoing concurrently (LTAC evaluation is appropriate) .... Re-evaluate in am & prn CONDITION: CRITICAL PROGNOSIS: GUARDED CODE STATUS: FULL CODE The high probability of a clinically significant, sudden or life-threatening deterioration of the [respiratory, cardiovascular, GI & neurologic] system(s) required my full and direct attention, intervention and personal management. The aggregate critical care time was [31] minutes without overlap. Time includes spent on; [x] Data Review and interpretation [x] Patient assessment and monitoring of vital signs [x] Documentation [x] Medication orders and management Subjective Date of service: 07/07/20 Principal diagnosis: Ac hypoxemic resp failure; COVID-19; pneumonia; CHF; Pulm HTN; OHS; DM II Interval history: Patient is seen today for: Ac hypoxemic resp failure; Coronavirus-19 infection; pneumonia; Pulmonary edema; Bilateral pleural effusions; CHF; Morbid obesity; pulmonary hypertension; OHS; DM II Seen and examined at bedside; 24hour events reviewed; nursing and respiratory care staff consulted; no adverse overnight events reported to me; resting peacefully in bed; remains on MVS; AMS is persistent; tolerating SBT; serum Hb dropped again to 6.8; azotemia worse; no emesis or overt aspiration; no gross bleeding Objective Vital Signs - 12hr 07/06/20 07/06/20 07/06/20 21:01 21:14 21:50 Temperature Pulse Rate 75 76 74 Pulse Rate [ From Monitor] Respiratory 18 Rate Blood Pressure 160/60 176/62 173/62 O2 Sat by Pulse 99 99 Oximetry 07/06/20 07/06/20 07/06/20 22:01 22:42 23:01 Temperature Pulse Rate 73 72 71 Pulse Rate [ From Monitor] Respiratory 22 15 16 Rate Blood Pressure 164/63 166/63 150/55 O2 Sat by Pulse 99 99 100 Oximetry 07/06/20 07/07/20 07/07/20 23:32 00:00 00:10 Temperature 98.8 F Pulse Rate 72 71 Pulse Rate [ 72 From Monitor] Respiratory 21 Rate Blood Pressure 159/62 159/62 O2 Sat by Pulse 100 100 Oximetry 07/07/20 07/07/20 07/07/20 01:01 02:00 03:00 Temperature Pulse Rate 68 73 71 Pulse Rate [ From Monitor] Respiratory 21 17 20 Rate Blood Pressure 164/62 161/69 163/75 O2 Sat by Pulse 100 100 100 Oximetry 07/07/20 07/07/20 07/07/20 03:32 04:00 04:01 Temperature 98.9 F Pulse Rate 70 69 Pulse Rate [ 70 From Monitor] Respiratory 17 18 Rate Blood Pressure 157/64 O2 Sat by Pulse 100 100 Oximetry 07/07/20 07/07/20 07/07/20 04:50 05:01 05:06 Temperature Pulse Rate 72 74 70 Pulse Rate [ From Monitor] Respiratory 12 Rate Blood Pressure 152/66 161/64 149/59 O2 Sat by Pulse 99 100 Oximetry 07/07/20 07:58 Temperature Pulse Rate 70 Pulse Rate [ From Monitor] Respiratory 19 Rate Blood Pressure 149/59 O2 Sat by Pulse 100 Oximetry Constitutional: no acute distress, other (elderly looking obese female on HFNC with mildly increased respiratory effort at rest on MVS) Eyes: non-icteric ENT: oropharynx dry, other (ETT 23-24 cm AYAN) Neck: supple, no lymphadenopathy, no JVD, other (large neck circumference) Effort: mildly labored Ascultation: Bilateral: diminished breath sounds, rhonchi (scant) Percussion: Bilateral: not dull Cardiovascular: regular rate and rhythm, other (S1,S2) Gastrointestinal: normoactive bowel sounds, soft, non-tender, non-distended Integumentary: normal Extremities: no cyanosis, no edema, pink and warm, pulses normal, no ischemia or petechiae Neurologic: pupils equal and round, unable to assess, other (lethargic to obtunded) Psychiatric: other (unable to assess re: AMS) CBC and BMP: 07/08/20 04:14 07/08/20 04:14 ABG, PT/INR, D-dimer: ABG ABG pH 7.32 pH Units (7.350-7.450) L 07/05/20 13:05 POC ABG pCO2 35.8 mmHg (32.0-48.0) 07/01/20 05:02 ABG pCO2 47.0 mm Hg 07/05/20 13:05 POC ABG pO2 90.8 mmHg (83-108) 07/01/20 05:02 ABG pO2 78.3 mm Hg (80.0-90.0) L 07/05/20 13:05 POC ABG HCO3 22.1 07/01/20 05:02 ABG O2 Saturation 96.1 % (95.0-99.0) 07/05/20 13:05 PT/INR, D-dimer PT 14.2 Sec. (12.2-14.9) 05/29/20 15:10 INR 1.08 (0.87-1.13) 05/29/20 15:10 D-Dimer 2310.15 ng/mlDDU (0-234) H 06/29/20 14:45 Abnormal lab findings: Abnormal Labs 05/28/20 05/28/20 05/28/20 13:29 13:47 13:47 WBC RBC Hgb Hct MCHC RDW 15.3 H Lymph % (Auto) [place] % (Auto) Eos % (Auto) Lymph # [place] # Seg Neutrophils % Seg Neuts % (Manual) Lymphocytes % (Manual) Seg Neutrophils # Seg Neutrophils # Man Lymphocytes # (Manual) Monocytes % (Manual) Eosinophils % (Manual) Monocytes # (Manual) Eosinophils # (Manual) D-Dimer Heparin Anti-Xa Level ABG pH POC ABG pCO2 POC ABG pO2 ABG pO2 ABG HCO3 ABG O2 Saturation ABG Base Excess ABG Hemoglobin ABG Oxyhemoglobin VBG pH Oxyhemoglobin Sodium Potassium 6.6 H* Chloride 109.2 H Carbon Dioxide 17 L BUN 29 H Creatinine 1.3 H Glucose 265 H POC Glucose 248 H Lactic Acid Calcium 8.1 L Ferritin AST 63 H Alkaline Phosphatase Magnesium Lactate Dehydrogenase Total Creatine Kinase 301 H CK-MB (CK-2) 4.3 H C-Reactive Protein Total Protein 5.4 L Albumin 2.6 L Troponin T HDL Cholesterol Urine WBC (Auto) Urine Creatinine Urine Total Protein Coronavirus (PCR) Crossmatch 05/28/20 05/28/20 05/28/20 13:47 13:47 14:46 WBC RBC Hgb Hct MCHC RDW Lymph % (Auto) [place] % (Auto) Eos % (Auto) Lymph # [place] # Seg Neutrophils % Seg Neuts % (Manual) Lymphocytes % (Manual) Seg Neutrophils # Seg Neutrophils # Man Lymphocytes # (Manual) Monocytes % (Manual) Eosinophils % (Manual) Monocytes # (Manual) Eosinophils # (Manual) D-Dimer Heparin Anti-Xa Level ABG pH POC ABG pCO2 POC ABG pO2 ABG pO2 ABG HCO3 ABG O2 Saturation ABG Base Excess ABG Hemoglobin ABG Oxyhemoglobin VBG pH 7.152 L* Oxyhemoglobin Sodium Potassium 7.2 H* Chloride Carbon Dioxide BUN Creatinine Glucose POC Glucose Lactic Acid 3.40 H* Calcium Ferritin AST Alkaline Phosphatase Magnesium Lactate Dehydrogenase Total Creatine Kinase CK-MB (CK-2) C-Reactive Protein Total Protein Albumin Troponin T HDL Cholesterol Urine WBC (Auto) Urine Creatinine Urine Total Protein Coronavirus (PCR) Crossmatch 05/28/20 05/28/20 05/28/20 15:33 15:33 15:51 WBC RBC Hgb Hct MCHC RDW Lymph % (Auto) [place] % (Auto) Eos % (Auto) Lymph # [place] # Seg Neutrophils % Seg Neuts % (Manual) Lymphocytes % (Manual) Seg Neutrophils # Seg Neutrophils # Man Lymphocytes # (Manual) Monocytes % (Manual) Eosinophils % (Manual) Monocytes # (Manual) Eosinophils # (Manual) D-Dimer 8780.43 H Heparin Anti-Xa Level ABG pH 7.284 L POC ABG pCO2 POC ABG pO2 ABG pO2 273.0 H ABG HCO3 ABG O2 Saturation 99.4 H ABG Base Excess -6.1 L ABG Hemoglobin 17.2 H ABG Oxyhemoglobin VBG pH Oxyhemoglobin Sodium Potassium Chloride Carbon Dioxide BUN Creatinine Glucose 152 H POC Glucose Lactic Acid Calcium Ferritin AST Alkaline Phosphatase Magnesium Lactate Dehydrogenase 365 H Total Creatine Kinase CK-MB (CK-2) C-Reactive Protein Total Protein Albumin Troponin T HDL Cholesterol Urine WBC (Auto) Urine Creatinine Urine Total Protein Coronavirus (PCR) Crossmatch 05/28/20 05/28/20 05/28/20 16:30 20:41 23:20 WBC RBC Hgb Hct MCHC RDW Lymph % (Auto) [place] % (Auto) Eos % (Auto) Lymph # [place] # Seg Neutrophils % Seg Neuts % (Manual) Lymphocytes % (Manual) Seg Neutrophils # Seg Neutrophils # Man Lymphocytes # (Manual) Monocytes % (Manual) Eosinophils % (Manual) Monocytes # (Manual) Eosinophils # (Manual) D-Dimer Heparin Anti-Xa Level ABG pH POC ABG pCO2 POC ABG pO2 ABG pO2 ABG HCO3 ABG O2 Saturation ABG Base Excess ABG Hemoglobin ABG Oxyhemoglobin VBG pH Oxyhemoglobin Sodium Potassium Chloride Carbon Dioxide BUN Creatinine Glucose POC Glucose 225 H 224 H Lactic Acid Calcium Ferritin AST Alkaline Phosphatase Magnesium Lactate Dehydrogenase Total Creatine Kinase CK-MB (CK-2) C-Reactive Protein Total Protein Albumin Troponin T HDL Cholesterol Urine WBC (Auto) 17.0 H Urine Creatinine Urine Total Protein Coronavirus (PCR) Crossmatch 05/28/20 05/29/20 05/29/20 Unknown 04:35 04:43 WBC RBC 3.48 L Hgb 9.8 L Hct 29.4 L MCHC RDW 16.0 H Lymph % (Auto) 7.4 L [place] % (Auto) Eos % (Auto) Lymph # 0.7 L [place] # Seg Neutrophils % 89.1 H Seg Neuts % (Manual) Lymphocytes % (Manual) Seg Neutrophils # 8.1 H Seg Neutrophils # Man Lymphocytes # (Manual) Monocytes % (Manual) Eosinophils % (Manual) Monocytes # (Manual) Eosinophils # (Manual) D-Dimer Heparin Anti-Xa Level ABG pH POC ABG pCO2 POC ABG pO2 ABG pO2 ABG HCO3 19.3 L ABG O2 Saturation ABG Base Excess -4.5 L ABG Hemoglobin 9.7 L ABG Oxyhemoglobin VBG pH Oxyhemoglobin Sodium Potassium Chloride Carbon Dioxide BUN Creatinine Glucose POC Glucose Lactic Acid Calcium Ferritin AST Alkaline Phosphatase Magnesium Lactate Dehydrogenase Total Creatine Kinase CK-MB (CK-2) C-Reactive Protein Total Protein Albumin Troponin T HDL Cholesterol Urine WBC (Auto) Urine Creatinine Urine Total Protein Coronavirus (PCR) Positive A Crossmatch 05/29/20 05/29/20 05/29/20 04:43 15:10 17:17 WBC RBC Hgb 9.3 L Hct 28.7 L MCHC RDW Lymph % (Auto) [place] % (Auto) Eos % (Auto) Lymph # [place] # Seg Neutrophils % Seg Neuts % (Manual) Lymphocytes % (Manual) Seg Neutrophils # Seg Neutrophils # Man Lymphocytes # (Manual) Monocytes % (Manual) Eosinophils % (Manual) Monocytes # (Manual) Eosinophils # (Manual) D-Dimer Heparin Anti-Xa Level ABG pH POC ABG pCO2 POC ABG pO2 ABG pO2 ABG HCO3 ABG O2 Saturation ABG Base Excess ABG Hemoglobin ABG Oxyhemoglobin VBG pH Oxyhemoglobin Sodium Potassium Chloride 110.2 H Carbon Dioxide 18 L BUN 32 H Creatinine 1.4 H Glucose 180 H POC Glucose 147 H Lactic Acid Calcium Ferritin AST Alkaline Phosphatase Magnesium Lactate Dehydrogenase Total Creatine Kinase CK-MB (CK-2) C-Reactive Protein Total Protein Albumin Troponin T HDL Cholesterol Urine WBC (Auto) Urine Creatinine Urine Total Protein Coronavirus (PCR) Crossmatch 05/30/20 05/30/20 05/30/20 00:08 00:12 04:15 WBC RBC Hgb Hct MCHC RDW Lymph % (Auto) [place] % (Auto) Eos % (Auto) Lymph # [place] # Seg Neutrophils % Seg Neuts % (Manual) Lymphocytes % (Manual) Seg Neutrophils # Seg Neutrophils # Man Lymphocytes # (Manual) Monocytes % (Manual) Eosinophils % (Manual) Monocytes # (Manual) Eosinophils # (Manual) D-Dimer Heparin Anti-Xa Level 0.71 H ABG pH 7.460 H POC ABG pCO2 POC ABG pO2 ABG pO2 106.0 H ABG HCO3 18.9 L ABG O2 Saturation ABG Base Excess -4.4 L ABG Hemoglobin 6.8 L ABG Oxyhemoglobin VBG pH Oxyhemoglobin Sodium Potassium Chloride Carbon Dioxide BUN Creatinine Glucose POC Glucose 195 H Lactic Acid Calcium Ferritin AST Alkaline Phosphatase Magnesium Lactate Dehydrogenase Total Creatine Kinase CK-MB (CK-2) C-Reactive Protein Total Protein Albumin Troponin T HDL Cholesterol Urine WBC (Auto) Urine Creatinine Urine Total Protein Coronavirus (PCR) Crossmatch 05/30/20 05/30/20 05/30/20 06:07 08:37 12:33 WBC RBC Hgb Hct MCHC RDW Lymph % (Auto) [place] % (Auto) Eos % (Auto) Lymph # [place] # Seg Neutrophils % Seg Neuts % (Manual) Lymphocytes % (Manual) Seg Neutrophils # Seg Neutrophils # Man Lymphocytes # (Manual) Monocytes % (Manual) Eosinophils % (Manual) Monocytes # (Manual) Eosinophils # (Manual) D-Dimer Heparin Anti-Xa Level 0.85 H ABG pH POC ABG pCO2 POC ABG pO2 ABG pO2 ABG HCO3 ABG O2 Saturation ABG Base Excess ABG Hemoglobin ABG Oxyhemoglobin VBG pH Oxyhemoglobin Sodium Potassium Chloride Carbon Dioxide BUN Creatinine Glucose POC Glucose 182 H 187 H Lactic Acid Calcium Ferritin AST Alkaline Phosphatase Magnesium Lactate Dehydrogenase Total Creatine Kinase CK-MB (CK-2) C-Reactive Protein Total Protein Albumin Troponin T HDL Cholesterol Urine WBC (Auto) Urine Creatinine Urine Total Protein Coronavirus (PCR) Crossmatch 05/30/20 05/30/20 05/30/20 15:58 17:57 23:36 WBC RBC Hgb Hct MCHC RDW Lymph % (Auto) [place] % (Auto) Eos % (Auto) Lymph # [place] # Seg Neutrophils % Seg Neuts % (Manual) Lymphocytes % (Manual) Seg Neutrophils # Seg Neutrophils # Man Lymphocytes # (Manual) Monocytes % (Manual) Eosinophils % (Manual) Monocytes # (Manual) Eosinophils # (Manual) D-Dimer Heparin Anti-Xa Level 1.03 H ABG pH POC ABG pCO2 POC ABG pO2 ABG pO2 ABG HCO3 ABG O2 Saturation ABG Base Excess ABG Hemoglobin ABG Oxyhemoglobin VBG pH Oxyhemoglobin Sodium Potassium Chloride Carbon Dioxide BUN Creatinine Glucose POC Glucose 208 H 185 H Lactic Acid Calcium Ferritin AST Alkaline Phosphatase Magnesium Lactate Dehydrogenase Total Creatine Kinase CK-MB (CK-2) C-Reactive Protein Total Protein Albumin Troponin T HDL Cholesterol Urine WBC (Auto) Urine Creatinine Urine Total Protein Coronavirus (PCR) Crossmatch 05/31/20 05/31/20 05/31/20 02:16 03:55 06:16 WBC RBC Hgb 9.2 L Hct 27.5 L MCHC RDW Lymph % (Auto) [place] % (Auto) Eos % (Auto) Lymph # [place] # Seg Neutrophils % Seg Neuts % (Manual) Lymphocytes % (Manual) Seg Neutrophils # Seg Neutrophils # Man Lymphocytes # (Manual) Monocytes % (Manual) Eosinophils % (Manual) Monocytes # (Manual) Eosinophils # (Manual) D-Dimer Heparin Anti-Xa Level ABG pH POC ABG pCO2 POC ABG pO2 ABG pO2 94.7 H ABG HCO3 18.6 L ABG O2 Saturation ABG Base Excess -5.5 L ABG Hemoglobin 7.9 L ABG Oxyhemoglobin VBG pH Oxyhemoglobin Sodium Potassium Chloride Carbon Dioxide BUN Creatinine Glucose POC Glucose 160 H Lactic Acid Calcium Ferritin AST Alkaline Phosphatase Magnesium Lactate Dehydrogenase Total Creatine Kinase CK-MB (CK-2) C-Reactive Protein Total Protein Albumin Troponin T HDL Cholesterol Urine WBC (Auto) Urine Creatinine Urine Total Protein Coronavirus (PCR) Crossmatch 05/31/20 05/31/20 05/31/20 12:20 13:03 18:13 WBC RBC Hgb Hct MCHC RDW Lymph % (Auto) [place] % (Auto) Eos % (Auto) Lymph # [place] # Seg Neutrophils % Seg Neuts % (Manual) Lymphocytes % (Manual) Seg Neutrophils # Seg Neutrophils # Man Lymphocytes # (Manual) Monocytes % (Manual) Eosinophils % (Manual) Monocytes # (Manual) Eosinophils # (Manual) D-Dimer Heparin Anti-Xa Level ABG pH POC ABG pCO2 POC ABG pO2 ABG pO2 ABG HCO3 ABG O2 Saturation ABG Base Excess ABG Hemoglobin ABG Oxyhemoglobin VBG pH Oxyhemoglobin Sodium Potassium Chloride Carbon Dioxide 18 L BUN 48 H Creatinine 1.6 H Glucose 115 H POC Glucose 128 H 159 H Lactic Acid Calcium 8.3 L Ferritin AST Alkaline Phosphatase Magnesium Lactate Dehydrogenase Total Creatine Kinase CK-MB (CK-2) C-Reactive Protein Total Protein 5.4 L Albumin 2.4 L Troponin T HDL Cholesterol Urine WBC (Auto) Urine Creatinine Urine Total Protein Coronavirus (PCR) Crossmatch 05/31/20 06/01/20 06/01/20 23:51 04:00 05:48 WBC RBC Hgb Hct MCHC RDW Lymph % (Auto) [place] % (Auto) Eos % (Auto) Lymph # [place] # Seg Neutrophils % Seg Neuts % (Manual) Lymphocytes % (Manual) Seg Neutrophils # Seg Neutrophils # Man Lymphocytes # (Manual) Monocytes % (Manual) Eosinophils % (Manual) Monocytes # (Manual) Eosinophils # (Manual) D-Dimer Heparin Anti-Xa Level ABG pH POC ABG pCO2 POC ABG pO2 ABG pO2 109.8 H ABG HCO3 18.8 L ABG O2 Saturation ABG Base Excess -5.9 L ABG Hemoglobin 7.8 L ABG Oxyhemoglobin VBG pH Oxyhemoglobin Sodium Potassium Chloride Carbon Dioxide BUN Creatinine Glucose POC Glucose 171 H 133 H Lactic Acid Calcium Ferritin AST Alkaline Phosphatase Magnesium Lactate Dehydrogenase Total Creatine Kinase CK-MB (CK-2) C-Reactive Protein Total Protein Albumin Troponin T HDL Cholesterol Urine WBC (Auto) Urine Creatinine Urine Total Protein Coronavirus (PCR) Crossmatch 06/01/20 06/01/20 06/02/20 12:28 17:29 00:08 WBC RBC Hgb Hct MCHC RDW Lymph % (Auto) [place] % (Auto) Eos % (Auto) Lymph # [place] # Seg Neutrophils % Seg Neuts % (Manual) Lymphocytes % (Manual) Seg Neutrophils # Seg Neutrophils # Man Lymphocytes # (Manual) Monocytes % (Manual) Eosinophils % (Manual) Monocytes # (Manual) Eosinophils # (Manual) D-Dimer Heparin Anti-Xa Level ABG pH POC ABG pCO2 POC ABG pO2 ABG pO2 ABG HCO3 ABG O2 Saturation ABG Base Excess ABG Hemoglobin ABG Oxyhemoglobin VBG pH Oxyhemoglobin Sodium Potassium Chloride Carbon Dioxide BUN Creatinine Glucose POC Glucose 199 H 209 H 162 H Lactic Acid Calcium Ferritin AST Alkaline Phosphatase Magnesium Lactate Dehydrogenase Total Creatine Kinase CK-MB (CK-2) C-Reactive Protein Total Protein Albumin Troponin T HDL Cholesterol Urine WBC (Auto) Urine Creatinine Urine Total Protein Coronavirus (PCR) Crossmatch 06/02/20 06/02/20 06/02/20 04:20 04:20 04:44 WBC RBC Hgb 10.0 L Hct MCHC RDW Lymph % (Auto) [place] % (Auto) Eos % (Auto) Lymph # [place] # Seg Neutrophils % Seg Neuts % (Manual) Lymphocytes % (Manual) Seg Neutrophils # Seg Neutrophils # Man Lymphocytes # (Manual) Monocytes % (Manual) Eosinophils % (Manual) Monocytes # (Manual) Eosinophils # (Manual) D-Dimer Heparin Anti-Xa Level 0.10 L ABG pH POC ABG pCO2 POC ABG pO2 ABG pO2 150.6 H ABG HCO3 ABG O2 Saturation ABG Base Excess -4.1 L ABG Hemoglobin 11.8 L ABG Oxyhemoglobin VBG pH Oxyhemoglobin Sodium Potassium Chloride Carbon Dioxide BUN Creatinine Glucose POC Glucose Lactic Acid Calcium Ferritin AST Alkaline Phosphatase Magnesium Lactate Dehydrogenase Total Creatine Kinase CK-MB (CK-2) C-Reactive Protein Total Protein Albumin Troponin T HDL Cholesterol Urine WBC (Auto) Urine Creatinine Urine Total Protein Coronavirus (PCR) Crossmatch 06/02/20 06/02/20 06/02/20 05:53 12:04 13:49 WBC RBC Hgb Hct MCHC RDW Lymph % (Auto) [place] % (Auto) Eos % (Auto) Lymph # [place] # Seg Neutrophils % Seg Neuts % (Manual) Lymphocytes % (Manual) Seg Neutrophils # Seg Neutrophils # Man Lymphocytes # (Manual) Monocytes % (Manual) Eosinophils % (Manual) Monocytes # (Manual) Eosinophils # (Manual) D-Dimer Heparin Anti-Xa Level 0.28 L ABG pH POC ABG pCO2 POC ABG pO2 ABG pO2 ABG HCO3 ABG O2 Saturation ABG Base Excess ABG Hemoglobin ABG Oxyhemoglobin VBG pH Oxyhemoglobin Sodium Potassium Chloride Carbon Dioxide BUN Creatinine Glucose POC Glucose 149 H 220 H Lactic Acid Calcium Ferritin AST Alkaline Phosphatase Magnesium Lactate Dehydrogenase Total Creatine Kinase CK-MB (CK-2) C-Reactive Protein Total Protein Albumin Troponin T HDL Cholesterol Urine WBC (Auto) Urine Creatinine Urine Total Protein Coronavirus (PCR) Crossmatch 06/02/20 06/02/20 06/03/20 13:49 18:31 00:42 WBC RBC Hgb Hct MCHC RDW Lymph % (Auto) [place] % (Auto) Eos % (Auto) Lymph # [place] # Seg Neutrophils % Seg Neuts % (Manual) Lymphocytes % (Manual) Seg Neutrophils # Seg Neutrophils # Man Lymphocytes # (Manual) Monocytes % (Manual) Eosinophils % (Manual) Monocytes # (Manual) Eosinophils # (Manual) D-Dimer 769.68 H Heparin Anti-Xa Level ABG pH POC ABG pCO2 POC ABG pO2 ABG pO2 ABG HCO3 ABG O2 Saturation ABG Base Excess ABG Hemoglobin ABG Oxyhemoglobin VBG pH Oxyhemoglobin Sodium Potassium Chloride Carbon Dioxide BUN Creatinine Glucose POC Glucose 225 H 212 H Lactic Acid Calcium Ferritin AST Alkaline Phosphatase Magnesium Lactate Dehydrogenase Total Creatine Kinase CK-MB (CK-2) C-Reactive Protein Total Protein Albumin Troponin T HDL Cholesterol Urine WBC (Auto) Urine Creatinine Urine Total Protein Coronavirus (PCR) Crossmatch 06/03/20 06/03/20 06/03/20 05:16 05:16 05:25 WBC 11.4 H RBC Hgb Hct MCHC RDW 16.4 H Lymph % (Auto) [place] % (Auto) Eos % (Auto) Lymph # [place] # Seg Neutrophils % Seg Neuts % (Manual) Lymphocytes % (Manual) Seg Neutrophils # Seg Neutrophils # Man Lymphocytes # (Manual) Monocytes % (Manual) Eosinophils % (Manual) Monocytes # (Manual) Eosinophils # (Manual) D-Dimer Heparin Anti-Xa Level ABG pH POC ABG pCO2 POC ABG pO2 ABG pO2 160.9 H ABG HCO3 19.4 L ABG O2 Saturation ABG Base Excess -4.9 L ABG Hemoglobin 7.0 L ABG Oxyhemoglobin VBG pH Oxyhemoglobin Sodium Potassium Chloride Carbon Dioxide 18 L BUN 65 H Creatinine 2.0 H Glucose 175 H POC Glucose Lactic Acid Calcium 8.0 L Ferritin AST Alkaline Phosphatase Magnesium Lactate Dehydrogenase Total Creatine Kinase CK-MB (CK-2) C-Reactive Protein Total Protein 5.5 L Albumin 2.2 L Troponin T HDL Cholesterol Urine WBC (Auto) Urine Creatinine Urine Total Protein Coronavirus (PCR) Crossmatch 06/03/20 06/03/20 06/03/20 06:07 11:58 18:24 WBC RBC Hgb Hct MCHC RDW Lymph % (Auto) [place] % (Auto) Eos % (Auto) Lymph # [place] # Seg Neutrophils % Seg Neuts % (Manual) Lymphocytes % (Manual) Seg Neutrophils # Seg Neutrophils # Man Lymphocytes # (Manual) Monocytes % (Manual) Eosinophils % (Manual) Monocytes # (Manual) Eosinophils # (Manual) D-Dimer Heparin Anti-Xa Level ABG pH POC ABG pCO2 POC ABG pO2 ABG pO2 ABG HCO3 ABG O2 Saturation ABG Base Excess ABG Hemoglobin ABG Oxyhemoglobin VBG pH Oxyhemoglobin Sodium Potassium Chloride Carbon Dioxide BUN Creatinine Glucose POC Glucose 177 H 163 H 211 H Lactic Acid Calcium Ferritin AST Alkaline Phosphatase Magnesium Lactate Dehydrogenase Total Creatine Kinase CK-MB (CK-2) C-Reactive Protein Total Protein Albumin Troponin T HDL Cholesterol Urine WBC (Auto) Urine Creatinine Urine Total Protein Coronavirus (PCR) Crossmatch 06/03/20 06/03/20 06/04/20 21:50 Unknown 00:26 WBC RBC Hgb Hct MCHC RDW Lymph % (Auto) [place] % (Auto) Eos % (Auto) Lymph # [place] # Seg Neutrophils % Seg Neuts % (Manual) Lymphocytes % (Manual) Seg Neutrophils # Seg Neutrophils # Man Lymphocytes # (Manual) Monocytes % (Manual) Eosinophils % (Manual) Monocytes # (Manual) Eosinophils # (Manual) D-Dimer Heparin Anti-Xa Level ABG pH POC ABG pCO2 POC ABG pO2 ABG pO2 ABG HCO3 ABG O2 Saturation ABG Base Excess ABG Hemoglobin ABG Oxyhemoglobin VBG pH Oxyhemoglobin Sodium 135 L Potassium Chloride Carbon Dioxide 18 L BUN Creatinine Glucose POC Glucose 241 H Lactic Acid Calcium Ferritin AST Alkaline Phosphatase Magnesium Lactate Dehydrogenase Total Creatine Kinase CK-MB (CK-2) C-Reactive Protein Total Protein Albumin Troponin T HDL Cholesterol Urine WBC (Auto) 11.0 H Urine Creatinine Urine Total Protein Coronavirus (PCR) Crossmatch 06/04/20 06/04/20 06/04/20 03:35 04:19 04:19 WBC RBC 3.15 L Hgb 8.9 L Hct 26.8 L D MCHC RDW 15.9 H Lymph % (Auto) 6.0 L [place] % (Auto) Eos % (Auto) Lymph # 0.6 L [place] # Seg Neutrophils % 86.6 H Seg Neuts % (Manual) Lymphocytes % (Manual) Seg Neutrophils # 9.1 H Seg Neutrophils # Man Lymphocytes # (Manual) Monocytes % (Manual) Eosinophils % (Manual) Monocytes # (Manual) Eosinophils # (Manual) D-Dimer Heparin Anti-Xa Level ABG pH 7.331 L POC ABG pCO2 POC ABG pO2 ABG pO2 ABG HCO3 ABG O2 Saturation ABG Base Excess -4.7 L ABG Hemoglobin 11.0 L ABG Oxyhemoglobin VBG pH Oxyhemoglobin 93.9 L Sodium 136 L Potassium Chloride Carbon Dioxide 20 L BUN 73 H Creatinine 2.0 H Glucose 192 H POC Glucose Lactic Acid Calcium 8.0 L Ferritin AST Alkaline Phosphatase Magnesium Lactate Dehydrogenase 271 H Total Creatine Kinase CK-MB (CK-2) C-Reactive Protein 2.20 H Total Protein 5.0 L Albumin 2.0 L Troponin T HDL Cholesterol Urine WBC (Auto) Urine Creatinine Urine Total Protein Coronavirus (PCR) Crossmatch 06/04/20 06/04/20 06/04/20 04:19 05:51 11:48 WBC RBC Hgb Hct MCHC RDW Lymph % (Auto) [place] % (Auto) Eos % (Auto) Lymph # [place] # Seg Neutrophils % Seg Neuts % (Manual) Lymphocytes % (Manual) Seg Neutrophils # Seg Neutrophils # Man Lymphocytes # (Manual) Monocytes % (Manual) Eosinophils % (Manual) Monocytes # (Manual) Eosinophils # (Manual) D-Dimer 414.52 H Heparin Anti-Xa Level ABG pH POC ABG pCO2 POC ABG pO2 ABG pO2 ABG HCO3 ABG O2 Saturation ABG Base Excess ABG Hemoglobin ABG Oxyhemoglobin VBG pH Oxyhemoglobin Sodium Potassium Chloride Carbon Dioxide BUN Creatinine Glucose POC Glucose 179 H 213 H Lactic Acid Calcium Ferritin AST Alkaline Phosphatase Magnesium Lactate Dehydrogenase Total Creatine Kinase CK-MB (CK-2) C-Reactive Protein Total Protein Albumin Troponin T HDL Cholesterol Urine WBC (Auto) Urine Creatinine Urine Total Protein Coronavirus (PCR) Crossmatch 06/04/20 06/05/20 06/05/20 18:25 00:16 05:00 WBC RBC Hgb Hct MCHC RDW Lymph % (Auto) [place] % (Auto) Eos % (Auto) Lymph # [place] # Seg Neutrophils % Seg Neuts % (Manual) Lymphocytes % (Manual) Seg Neutrophils # Seg Neutrophils # Man Lymphocytes # (Manual) Monocytes % (Manual) Eosinophils % (Manual) Monocytes # (Manual) Eosinophils # (Manual) D-Dimer Heparin Anti-Xa Level ABG pH 7.286 L POC ABG pCO2 POC ABG pO2 ABG pO2 96.2 H ABG HCO3 ABG O2 Saturation ABG Base Excess -6.3 L ABG Hemoglobin 8.8 L ABG Oxyhemoglobin VBG pH Oxyhemoglobin 94.8 L Sodium Potassium Chloride Carbon Dioxide BUN Creatinine Glucose POC Glucose 238 H 183 H Lactic Acid Calcium Ferritin AST Alkaline Phosphatase Magnesium Lactate Dehydrogenase Total Creatine Kinase CK-MB (CK-2) C-Reactive Protein Total Protein Albumin Troponin T HDL Cholesterol Urine WBC (Auto) Urine Creatinine Urine Total Protein Coronavirus (PCR) Crossmatch 06/05/20 06/05/20 06/05/20 05:39 07:25 07:25 WBC RBC 2.97 L Hgb 8.7 L Hct 25.7 L MCHC RDW 16.0 H Lymph % (Auto) 8.8 L [place] % (Auto) 13.3 H Eos % (Auto) Lymph # 0.8 L [place] # 1.3 H Seg Neutrophils % 77.3 H Seg Neuts % (Manual) Lymphocytes % (Manual) Seg Neutrophils # Seg Neutrophils # Man Lymphocytes # (Manual) Monocytes % (Manual) Eosinophils % (Manual) Monocytes # (Manual) Eosinophils # (Manual) D-Dimer Heparin Anti-Xa Level ABG pH POC ABG pCO2 POC ABG pO2 ABG pO2 ABG HCO3 ABG O2 Saturation ABG Base Excess ABG Hemoglobin ABG Oxyhemoglobin VBG pH Oxyhemoglobin Sodium 133 L Potassium Chloride Carbon Dioxide 17 L BUN 89 H Creatinine 2.8 H Glucose 176 H POC Glucose 149 H Lactic Acid Calcium 7.7 L Ferritin AST Alkaline Phosphatase Magnesium Lactate Dehydrogenase Total Creatine Kinase CK-MB (CK-2) C-Reactive Protein Total Protein 4.2 L Albumin 1.9 L Troponin T HDL Cholesterol Urine WBC (Auto) Urine Creatinine Urine Total Protein Coronavirus (PCR) Crossmatch 06/05/20 06/05/20 06/05/20 07:25 12:05 15:41 WBC RBC Hgb Hct MCHC RDW Lymph % (Auto) [place] % (Auto) Eos % (Auto) Lymph # [place] # Seg Neutrophils % Seg Neuts % (Manual) Lymphocytes % (Manual) Seg Neutrophils # Seg Neutrophils # Man Lymphocytes # (Manual) Monocytes % (Manual) Eosinophils % (Manual) Monocytes # (Manual) Eosinophils # (Manual) D-Dimer Heparin Anti-Xa Level 0.76 H 0.81 H ABG pH POC ABG pCO2 POC ABG pO2 ABG pO2 ABG HCO3 ABG O2 Saturation ABG Base Excess ABG Hemoglobin ABG Oxyhemoglobin VBG pH Oxyhemoglobin Sodium Potassium Chloride Carbon Dioxide BUN Creatinine Glucose POC Glucose 198 H Lactic Acid Calcium Ferritin AST Alkaline Phosphatase Magnesium Lactate Dehydrogenase Total Creatine Kinase CK-MB (CK-2) C-Reactive Protein Total Protein Albumin Troponin T HDL Cholesterol Urine WBC (Auto) Urine Creatinine Urine Total Protein Coronavirus (PCR) Crossmatch 06/05/20 06/05/20 06/06/20 18:08 23:25 04:00 WBC RBC Hgb Hct MCHC RDW Lymph % (Auto) [place] % (Auto) Eos % (Auto) Lymph # [place] # Seg Neutrophils % Seg Neuts % (Manual) Lymphocytes % (Manual) Seg Neutrophils # Seg Neutrophils # Man Lymphocytes # (Manual) Monocytes % (Manual) Eosinophils % (Manual) Monocytes # (Manual) Eosinophils # (Manual) D-Dimer Heparin Anti-Xa Level ABG pH POC ABG pCO2 POC ABG pO2 ABG pO2 ABG HCO3 ABG O2 Saturation ABG Base Excess ABG Hemoglobin ABG Oxyhemoglobin VBG pH Oxyhemoglobin Sodium Potassium Chloride Carbon Dioxide BUN Creatinine Glucose POC Glucose 223 H 169 H Lactic Acid Calcium Ferritin AST Alkaline Phosphatase Magnesium Lactate Dehydrogenase Total Creatine Kinase CK-MB (CK-2) C-Reactive Protein Total Protein Albumin Troponin T HDL Cholesterol Urine WBC (Auto) 15.0 H Urine Creatinine Urine Total Protein Coronavirus (PCR) Crossmatch 06/06/20 06/06/20 06/06/20 04:00 05:33 05:38 WBC RBC 2.97 L Hgb 8.7 L Hct 26.8 L MCHC RDW 16.8 H Lymph % (Auto) [place] % (Auto) Eos % (Auto) Lymph # [place] # Seg Neutrophils % Seg Neuts % (Manual) Lymphocytes % (Manual) Seg Neutrophils # Seg Neutrophils # Man Lymphocytes # (Manual) Monocytes % (Manual) Eosinophils % (Manual) Monocytes # (Manual) Eosinophils # (Manual) D-Dimer Heparin Anti-Xa Level ABG pH POC ABG pCO2 POC ABG pO2 ABG pO2 ABG HCO3 ABG O2 Saturation ABG Base Excess ABG Hemoglobin ABG Oxyhemoglobin VBG pH Oxyhemoglobin Sodium Potassium Chloride Carbon Dioxide BUN Creatinine Glucose POC Glucose 186 H Lactic Acid Calcium Ferritin AST Alkaline Phosphatase Magnesium Lactate Dehydrogenase Total Creatine Kinase CK-MB (CK-2) C-Reactive Protein Total Protein Albumin Troponin T HDL Cholesterol Urine WBC (Auto) Urine Creatinine 82.2 H Urine Total Protein 196 H Coronavirus (PCR) Crossmatch 06/06/20 06/06/20 06/06/20 05:38 12:25 17:03 WBC RBC Hgb Hct MCHC RDW Lymph % (Auto) [place] % (Auto) Eos % (Auto) Lymph # [place] # Seg Neutrophils % Seg Neuts % (Manual) Lymphocytes % (Manual) Seg Neutrophils # Seg Neutrophils # Man Lymphocytes # (Manual) Monocytes % (Manual) Eosinophils % (Manual) Monocytes # (Manual) Eosinophils # (Manual) D-Dimer Heparin Anti-Xa Level ABG pH POC ABG pCO2 POC ABG pO2 ABG pO2 ABG HCO3 ABG O2 Saturation ABG Base Excess ABG Hemoglobin ABG Oxyhemoglobin VBG pH Oxyhemoglobin Sodium 134 L Potassium 5.2 H Chloride Carbon Dioxide 18 L BUN 97 H Creatinine 2.5 H Glucose 193 H POC Glucose 239 H 252 H Lactic Acid Calcium 7.5 L Ferritin AST Alkaline Phosphatase Magnesium Lactate Dehydrogenase Total Creatine Kinase CK-MB (CK-2) C-Reactive Protein Total Protein 4.1 L Albumin 1.9 L Troponin T HDL Cholesterol Urine WBC (Auto) Urine Creatinine Urine Total Protein Coronavirus (PCR) Crossmatch 06/07/20 06/07/20 06/07/20 00:16 01:49 04:00 WBC RBC 2.91 L Hgb 8.4 L Hct 25.0 L MCHC RDW 16.1 H Lymph % (Auto) 5.7 L [place] % (Auto) 10.5 H Eos % (Auto) Lymph # 0.6 L [place] # 1.1 H Seg Neutrophils % 83.6 H Seg Neuts % (Manual) Lymphocytes % (Manual) Seg Neutrophils # 9.1 H Seg Neutrophils # Man Lymphocytes # (Manual) Monocytes % (Manual) Eosinophils % (Manual) Monocytes # (Manual) Eosinophils # (Manual) D-Dimer Heparin Anti-Xa Level 0.26 L ABG pH POC ABG pCO2 POC ABG pO2 ABG pO2 ABG HCO3 ABG O2 Saturation ABG Base Excess ABG Hemoglobin ABG Oxyhemoglobin VBG pH Oxyhemoglobin Sodium Potassium Chloride Carbon Dioxide BUN Creatinine Glucose POC Glucose 173 H Lactic Acid Calcium Ferritin AST Alkaline Phosphatase Magnesium Lactate Dehydrogenase Total Creatine Kinase CK-MB (CK-2) C-Reactive Protein Total Protein Albumin Troponin T HDL Cholesterol Urine WBC (Auto) Urine Creatinine Urine Total Protein Coronavirus (PCR) Crossmatch 06/07/20 06/07/20 06/07/20 04:00 04:54 05:51 WBC RBC Hgb Hct MCHC RDW Lymph % (Auto) [place] % (Auto) Eos % (Auto) Lymph # [place] # Seg Neutrophils % Seg Neuts % (Manual) Lymphocytes % (Manual) Seg Neutrophils # Seg Neutrophils # Man Lymphocytes # (Manual) Monocytes % (Manual) Eosinophils % (Manual) Monocytes # (Manual) Eosinophils # (Manual) D-Dimer Heparin Anti-Xa Level ABG pH 7.317 L POC ABG pCO2 POC ABG pO2 ABG pO2 71.4 L ABG HCO3 ABG O2 Saturation 94.3 L ABG Base Excess -4.8 L ABG Hemoglobin 7.1 L ABG Oxyhemoglobin VBG pH Oxyhemoglobin 92.2 L Sodium 133 L Potassium Chloride Carbon Dioxide 18 L BUN 100 H Creatinine 2.5 H Glucose 158 H POC Glucose 168 H Lactic Acid Calcium 7.6 L Ferritin AST Alkaline Phosphatase Magnesium Lactate Dehydrogenase Total Creatine Kinase CK-MB (CK-2) C-Reactive Protein Total Protein 4.7 L Albumin 2.0 L Troponin T HDL Cholesterol Urine WBC (Auto) Urine Creatinine Urine Total Protein Coronavirus (PCR) Crossmatch 06/07/20 06/07/20 06/07/20 12:03 17:17 20:10 WBC RBC Hgb Hct MCHC RDW Lymph % (Auto) [place] % (Auto) Eos % (Auto) Lymph # [place] # Seg Neutrophils % Seg Neuts % (Manual) Lymphocytes % (Manual) Seg Neutrophils # Seg Neutrophils # Man Lymphocytes # (Manual) Monocytes % (Manual) Eosinophils % (Manual) Monocytes # (Manual) Eosinophils # (Manual) D-Dimer Heparin Anti-Xa Level 0.17 L ABG pH POC ABG pCO2 POC ABG pO2 ABG pO2 ABG HCO3 ABG O2 Saturation ABG Base Excess ABG Hemoglobin ABG Oxyhemoglobin VBG pH Oxyhemoglobin Sodium Potassium Chloride Carbon Dioxide BUN Creatinine Glucose POC Glucose 276 H 281 H Lactic Acid Calcium Ferritin AST Alkaline Phosphatase Magnesium Lactate Dehydrogenase Total Creatine Kinase CK-MB (CK-2) C-Reactive Protein Total Protein Albumin Troponin T HDL Cholesterol Urine WBC (Auto) Urine Creatinine Urine Total Protein Coronavirus (PCR) Crossmatch 06/08/20 06/08/20 06/08/20 00:02 04:47 04:47 WBC 16.4 H RBC 3.07 L Hgb 8.6 L Hct 26.5 L MCHC RDW 16.3 H Lymph % (Auto) [place] % (Auto) Eos % (Auto) Lymph # [place] # Seg Neutrophils % Seg Neuts % (Manual) 90.0 H Lymphocytes % (Manual) 3.0 L Seg Neutrophils # Seg Neutrophils # Man 14.8 H Lymphocytes # (Manual) 0.5 L Monocytes % (Manual) Eosinophils % (Manual) Monocytes # (Manual) 1.1 H Eosinophils # (Manual) D-Dimer Heparin Anti-Xa Level ABG pH POC ABG pCO2 POC ABG pO2 ABG pO2 ABG HCO3 ABG O2 Saturation ABG Base Excess ABG Hemoglobin ABG Oxyhemoglobin VBG pH Oxyhemoglobin Sodium 129 L Potassium Chloride 95.6 L Carbon Dioxide 17 L BUN 106 H Creatinine 2.5 H Glucose 213 H POC Glucose 242 H Lactic Acid Calcium 7.6 L Ferritin AST Alkaline Phosphatase Magnesium Lactate Dehydrogenase Total Creatine Kinase CK-MB (CK-2) C-Reactive Protein Total Protein 5.0 L Albumin 2.1 L Troponin T HDL Cholesterol Urine WBC (Auto) Urine Creatinine Urine Total Protein Coronavirus (PCR) Crossmatch 06/08/20 06/08/20 06/08/20 05:40 11:55 17:54 WBC RBC Hgb Hct MCHC RDW Lymph % (Auto) [place] % (Auto) Eos % (Auto) Lymph # [place] # Seg Neutrophils % Seg Neuts % (Manual) Lymphocytes % (Manual) Seg Neutrophils # Seg Neutrophils # Man Lymphocytes # (Manual) Monocytes % (Manual) Eosinophils % (Manual) Monocytes # (Manual) Eosinophils # (Manual) D-Dimer Heparin Anti-Xa Level ABG pH POC ABG pCO2 POC ABG pO2 ABG pO2 ABG HCO3 ABG O2 Saturation ABG Base Excess ABG Hemoglobin ABG Oxyhemoglobin VBG pH Oxyhemoglobin Sodium Potassium Chloride Carbon Dioxide BUN Creatinine Glucose POC Glucose 221 H 218 H 163 H Lactic Acid Calcium Ferritin AST Alkaline Phosphatase Magnesium Lactate Dehydrogenase Total Creatine Kinase CK-MB (CK-2) C-Reactive Protein Total Protein Albumin Troponin T HDL Cholesterol Urine WBC (Auto) Urine Creatinine Urine Total Protein Coronavirus (PCR) Crossmatch 06/08/20 06/09/20 06/09/20 22:01 00:09 05:16 WBC 19.0 H RBC 3.35 L Hgb 9.2 L Hct 28.5 L MCHC RDW 16.3 H Lymph % (Auto) [place] % (Auto) Eos % (Auto) Lymph # [place] # Seg Neutrophils % Seg Neuts % (Manual) 85.0 H Lymphocytes % (Manual) 7.0 L Seg Neutrophils # Seg Neutrophils # Man 16.2 H Lymphocytes # (Manual) Monocytes % (Manual) Eosinophils % (Manual) Monocytes # (Manual) 1.3 H Eosinophils # (Manual) D-Dimer Heparin Anti-Xa Level ABG pH POC ABG pCO2 POC ABG pO2 ABG pO2 ABG HCO3 ABG O2 Saturation ABG Base Excess ABG Hemoglobin ABG Oxyhemoglobin VBG pH Oxyhemoglobin Sodium Potassium Chloride Carbon Dioxide BUN Creatinine Glucose POC Glucose 182 H 150 H Lactic Acid Calcium Ferritin AST Alkaline Phosphatase Magnesium Lactate Dehydrogenase Total Creatine Kinase CK-MB (CK-2) C-Reactive Protein Total Protein Albumin Troponin T HDL Cholesterol Urine WBC (Auto) Urine Creatinine Urine Total Protein Coronavirus (PCR) Crossmatch 06/09/20 06/09/20 06/09/20 05:16 05:24 11:29 WBC RBC Hgb Hct MCHC RDW Lymph % (Auto) [place] % (Auto) Eos % (Auto) Lymph # [place] # Seg Neutrophils % Seg Neuts % (Manual) Lymphocytes % (Manual) Seg Neutrophils # Seg Neutrophils # Man Lymphocytes # (Manual) Monocytes % (Manual) Eosinophils % (Manual) Monocytes # (Manual) Eosinophils # (Manual) D-Dimer Heparin Anti-Xa Level ABG pH POC ABG pCO2 POC ABG pO2 ABG pO2 ABG HCO3 ABG O2 Saturation ABG Base Excess ABG Hemoglobin ABG Oxyhemoglobin VBG pH Oxyhemoglobin Sodium 133 L Potassium Chloride Carbon Dioxide 19 L BUN 109 H Creatinine 2.1 H Glucose 133 H POC Glucose 128 H 119 H Lactic Acid Calcium 7.7 L Ferritin AST Alkaline Phosphatase < 5 L Magnesium Lactate Dehydrogenase Total Creatine Kinase CK-MB (CK-2) C-Reactive Protein Total Protein 4.6 L Albumin < 0.2 L Troponin T HDL Cholesterol Urine WBC (Auto) Urine Creatinine Urine Total Protein Coronavirus (PCR) Crossmatch 06/09/20 06/10/20 06/10/20 17:32 00:00 05:49 WBC RBC Hgb Hct MCHC RDW Lymph % (Auto) [place] % (Auto) Eos % (Auto) Lymph # [place] # Seg Neutrophils % Seg Neuts % (Manual) Lymphocytes % (Manual) Seg Neutrophils # Seg Neutrophils # Man Lymphocytes # (Manual) Monocytes % (Manual) Eosinophils % (Manual) Monocytes # (Manual) Eosinophils # (Manual) D-Dimer Heparin Anti-Xa Level 0.19 L ABG pH POC ABG pCO2 POC ABG pO2 ABG pO2 ABG HCO3 ABG O2 Saturation ABG Base Excess ABG Hemoglobin ABG Oxyhemoglobin VBG pH Oxyhemoglobin Sodium Potassium Chloride Carbon Dioxide BUN Creatinine Glucose POC Glucose 106 H 117 H Lactic Acid Calcium Ferritin AST Alkaline Phosphatase Magnesium Lactate Dehydrogenase Total Creatine Kinase CK-MB (CK-2) C-Reactive Protein Total Protein Albumin Troponin T HDL Cholesterol Urine WBC (Auto) Urine Creatinine Urine Total Protein Coronavirus (PCR) Crossmatch 06/10/20 06/10/20 06/10/20 05:54 07:40 11:40 WBC RBC Hgb Hct MCHC RDW Lymph % (Auto) [place] % (Auto) Eos % (Auto) Lymph # [place] # Seg Neutrophils % Seg Neuts % (Manual) Lymphocytes % (Manual) Seg Neutrophils # Seg Neutrophils # Man Lymphocytes # (Manual) Monocytes % (Manual) Eosinophils % (Manual) Monocytes # (Manual) Eosinophils # (Manual) D-Dimer Heparin Anti-Xa Level ABG pH POC ABG pCO2 POC ABG pO2 ABG pO2 ABG HCO3 ABG O2 Saturation ABG Base Excess ABG Hemoglobin ABG Oxyhemoglobin VBG pH Oxyhemoglobin Sodium 146 H D Potassium Chloride Carbon Dioxide 20 L BUN 99 H Creatinine 1.9 H Glucose 121 H POC Glucose 127 H 138 H Lactic Acid Calcium 8.2 L Ferritin AST Alkaline Phosphatase Magnesium Lactate Dehydrogenase Total Creatine Kinase CK-MB (CK-2) C-Reactive Protein Total Protein Albumin Troponin T HDL Cholesterol Urine WBC (Auto) Urine Creatinine Urine Total Protein Coronavirus (PCR) Crossmatch 06/10/20 06/10/20 06/10/20 14:44 17:31 23:22 WBC RBC Hgb Hct MCHC RDW Lymph % (Auto) [place] % (Auto) Eos % (Auto) Lymph # [place] # Seg Neutrophils % Seg Neuts % (Manual) Lymphocytes % (Manual) Seg Neutrophils # Seg Neutrophils # Man Lymphocytes # (Manual) Monocytes % (Manual) Eosinophils % (Manual) Monocytes # (Manual) Eosinophils # (Manual) D-Dimer Heparin Anti-Xa Level 0.17 L ABG pH POC ABG pCO2 POC ABG pO2 ABG pO2 ABG HCO3 ABG O2 Saturation ABG Base Excess ABG Hemoglobin ABG Oxyhemoglobin VBG pH Oxyhemoglobin Sodium Potassium Chloride Carbon Dioxide BUN Creatinine Glucose POC Glucose 128 H 114 H Lactic Acid Calcium Ferritin AST Alkaline Phosphatase Magnesium Lactate Dehydrogenase Total Creatine Kinase CK-MB (CK-2) C-Reactive Protein Total Protein Albumin Troponin T HDL Cholesterol Urine WBC (Auto) Urine Creatinine Urine Total Protein Coronavirus (PCR) Crossmatch 06/11/20 06/11/20 06/11/20 00:22 03:45 03:45 WBC 14.6 H RBC 2.77 L Hgb 7.9 L Hct 24.3 L MCHC RDW 16.8 H Lymph % (Auto) 6.6 L [place] % (Auto) 8.5 H Eos % (Auto) Lymph # 1.0 L [place] # 1.2 H Seg Neutrophils % 82.9 H Seg Neuts % (Manual) Lymphocytes % (Manual) Seg Neutrophils # 12.1 H Seg Neutrophils # Man Lymphocytes # (Manual) Monocytes % (Manual) Eosinophils % (Manual) Monocytes # (Manual) Eosinophils # (Manual) D-Dimer Heparin Anti-Xa Level 0.24 L ABG pH POC ABG pCO2 POC ABG pO2 ABG pO2 ABG HCO3 ABG O2 Saturation ABG Base Excess ABG Hemoglobin ABG Oxyhemoglobin VBG pH Oxyhemoglobin Sodium Potassium Chloride Carbon Dioxide 20 L BUN 88 H Creatinine 1.5 H Glucose 111 H POC Glucose Lactic Acid Calcium 8.2 L Ferritin AST Alkaline Phosphatase Magnesium Lactate Dehydrogenase Total Creatine Kinase CK-MB (CK-2) C-Reactive Protein Total Protein Albumin Troponin T HDL Cholesterol Urine WBC (Auto) Urine Creatinine Urine Total Protein Coronavirus (PCR) Crossmatch 06/11/20 06/11/20 06/11/20 06:03 10:22 11:11 WBC RBC Hgb Hct MCHC RDW Lymph % (Auto) [place] % (Auto) Eos % (Auto) Lymph # [place] # Seg Neutrophils % Seg Neuts % (Manual) Lymphocytes % (Manual) Seg Neutrophils # Seg Neutrophils # Man Lymphocytes # (Manual) Monocytes % (Manual) Eosinophils % (Manual) Monocytes # (Manual) Eosinophils # (Manual) D-Dimer Heparin Anti-Xa Level 0.26 L ABG pH POC ABG pCO2 POC ABG pO2 ABG pO2 ABG HCO3 ABG O2 Saturation ABG Base Excess ABG Hemoglobin 9.6 L ABG Oxyhemoglobin VBG pH Oxyhemoglobin Sodium Potassium Chloride Carbon Dioxide BUN Creatinine Glucose POC Glucose 114 H Lactic Acid Calcium Ferritin AST Alkaline Phosphatase Magnesium Lactate Dehydrogenase Total Creatine Kinase CK-MB (CK-2) C-Reactive Protein Total Protein Albumin Troponin T HDL Cholesterol Urine WBC (Auto) Urine Creatinine Urine Total Protein Coronavirus (PCR) Crossmatch 06/11/20 06/11/20 06/12/20 12:24 17:24 00:21 WBC RBC Hgb Hct MCHC RDW Lymph % (Auto) [place] % (Auto) Eos % (Auto) Lymph # [place] # Seg Neutrophils % Seg Neuts % (Manual) Lymphocytes % (Manual) Seg Neutrophils # Seg Neutrophils # Man Lymphocytes # (Manual) Monocytes % (Manual) Eosinophils % (Manual) Monocytes # (Manual) Eosinophils # (Manual) D-Dimer Heparin Anti-Xa Level ABG pH POC ABG pCO2 POC ABG pO2 ABG pO2 ABG HCO3 ABG O2 Saturation ABG Base Excess ABG Hemoglobin ABG Oxyhemoglobin VBG pH Oxyhemoglobin Sodium Potassium Chloride Carbon Dioxide BUN Creatinine Glucose POC Glucose 119 H 126 H 117 H Lactic Acid Calcium Ferritin AST Alkaline Phosphatase Magnesium Lactate Dehydrogenase Total Creatine Kinase CK-MB (CK-2) C-Reactive Protein Total Protein Albumin Troponin T HDL Cholesterol Urine WBC (Auto) Urine Creatinine Urine Total Protein Coronavirus (PCR) Crossmatch 06/12/20 06/12/20 06/12/20 02:46 02:46 05:46 WBC 13.2 H RBC 2.83 L Hgb 8.3 L Hct 24.3 L MCHC RDW 16.6 H Lymph % (Auto) 6.2 L [place] % (Auto) 9.5 H Eos % (Auto) Lymph # 0.8 L [place] # 1.3 H Seg Neutrophils % 81.9 H Seg Neuts % (Manual) Lymphocytes % (Manual) Seg Neutrophils # 10.9 H Seg Neutrophils # Man Lymphocytes # (Manual) Monocytes % (Manual) Eosinophils % (Manual) Monocytes # (Manual) Eosinophils # (Manual) D-Dimer Heparin Anti-Xa Level ABG pH POC ABG pCO2 POC ABG pO2 ABG pO2 ABG HCO3 ABG O2 Saturation ABG Base Excess ABG Hemoglobin ABG Oxyhemoglobin VBG pH Oxyhemoglobin Sodium Potassium 3.5 L Chloride Carbon Dioxide BUN 77 H Creatinine 1.3 H Glucose POC Glucose 132 H Lactic Acid Calcium 8.3 L Ferritin AST Alkaline Phosphatase Magnesium Lactate Dehydrogenase Total Creatine Kinase CK-MB (CK-2) C-Reactive Protein Total Protein Albumin Troponin T HDL Cholesterol Urine WBC (Auto) Urine Creatinine Urine Total Protein Coronavirus (PCR) Crossmatch 06/12/20 06/12/20 06/12/20 09:20 12:16 17:48 WBC RBC Hgb Hct MCHC RDW Lymph % (Auto) [place] % (Auto) Eos % (Auto) Lymph # [place] # Seg Neutrophils % Seg Neuts % (Manual) Lymphocytes % (Manual) Seg Neutrophils # Seg Neutrophils # Man Lymphocytes # (Manual) Monocytes % (Manual) Eosinophils % (Manual) Monocytes # (Manual) Eosinophils # (Manual) D-Dimer Heparin Anti-Xa Level ABG pH POC ABG pCO2 POC ABG pO2 ABG pO2 91.1 H ABG HCO3 ABG O2 Saturation ABG Base Excess ABG Hemoglobin ABG Oxyhemoglobin VBG pH Oxyhemoglobin 94.8 L Sodium Potassium Chloride Carbon Dioxide BUN Creatinine Glucose POC Glucose 167 H 182 H Lactic Acid Calcium Ferritin AST Alkaline Phosphatase Magnesium Lactate Dehydrogenase Total Creatine Kinase CK-MB (CK-2) C-Reactive Protein Total Protein Albumin Troponin T HDL Cholesterol Urine WBC (Auto) Urine Creatinine Urine Total Protein Coronavirus (PCR) Crossmatch 06/13/20 06/13/20 06/13/20 00:08 05:37 09:09 WBC RBC Hgb Hct MCHC RDW Lymph % (Auto) [place] % (Auto) Eos % (Auto) Lymph # [place] # Seg Neutrophils % Seg Neuts % (Manual) Lymphocytes % (Manual) Seg Neutrophils # Seg Neutrophils # Man Lymphocytes # (Manual) Monocytes % (Manual) Eosinophils % (Manual) Monocytes # (Manual) Eosinophils # (Manual) D-Dimer Heparin Anti-Xa Level 0.86 H ABG pH POC ABG pCO2 POC ABG pO2 ABG pO2 ABG HCO3 ABG O2 Saturation ABG Base Excess ABG Hemoglobin ABG Oxyhemoglobin VBG pH Oxyhemoglobin Sodium Potassium Chloride Carbon Dioxide BUN Creatinine Glucose POC Glucose 142 H 119 H Lactic Acid Calcium Ferritin AST Alkaline Phosphatase Magnesium Lactate Dehydrogenase Total Creatine Kinase CK-MB (CK-2) C-Reactive Protein Total Protein Albumin Troponin T HDL Cholesterol Urine WBC (Auto) Urine Creatinine Urine Total Protein Coronavirus (PCR) Crossmatch 06/13/20 06/13/20 06/13/20 12:28 17:55 21:17 WBC RBC Hgb Hct MCHC RDW Lymph % (Auto) [place] % (Auto) Eos % (Auto) Lymph # [place] # Seg Neutrophils % Seg Neuts % (Manual) Lymphocytes % (Manual) Seg Neutrophils # Seg Neutrophils # Man Lymphocytes # (Manual) Monocytes % (Manual) Eosinophils % (Manual) Monocytes # (Manual) Eosinophils # (Manual) D-Dimer Heparin Anti-Xa Level ABG pH POC ABG pCO2 POC ABG pO2 ABG pO2 ABG HCO3 ABG O2 Saturation ABG Base Excess ABG Hemoglobin ABG Oxyhemoglobin VBG pH Oxyhemoglobin Sodium Potassium Chloride Carbon Dioxide BUN 61 H Creatinine Glucose 131 H POC Glucose 165 H 174 H Lactic Acid Calcium Ferritin AST Alkaline Phosphatase Magnesium Lactate Dehydrogenase Total Creatine Kinase CK-MB (CK-2) C-Reactive Protein Total Protein Albumin Troponin T HDL Cholesterol Urine WBC (Auto) Urine Creatinine Urine Total Protein Coronavirus (PCR) Crossmatch 06/13/20 06/13/20 06/14/20 21:17 23:50 05:34 WBC RBC Hgb Hct MCHC RDW Lymph % (Auto) [place] % (Auto) Eos % (Auto) Lymph # [place] # Seg Neutrophils % Seg Neuts % (Manual) Lymphocytes % (Manual) Seg Neutrophils # Seg Neutrophils # Man Lymphocytes # (Manual) Monocytes % (Manual) Eosinophils % (Manual) Monocytes # (Manual) Eosinophils # (Manual) D-Dimer Heparin Anti-Xa Level 0.72 H ABG pH POC ABG pCO2 POC ABG pO2 ABG pO2 ABG HCO3 ABG O2 Saturation ABG Base Excess ABG Hemoglobin ABG Oxyhemoglobin VBG pH Oxyhemoglobin Sodium 146 H Potassium Chloride 107.6 H Carbon Dioxide BUN 61 H Creatinine 1.3 H Glucose 135 H POC Glucose 146 H Lactic Acid Calcium Ferritin AST Alkaline Phosphatase Magnesium Lactate Dehydrogenase Total Creatine Kinase CK-MB (CK-2) C-Reactive Protein Total Protein Albumin Troponin T HDL Cholesterol Urine WBC (Auto) Urine Creatinine Urine Total Protein Coronavirus (PCR) Crossmatch 06/14/20 06/14/20 06/14/20 06:11 09:28 11:30 WBC RBC Hgb Hct MCHC RDW Lymph % (Auto) [place] % (Auto) Eos % (Auto) Lymph # [place] # Seg Neutrophils % Seg Neuts % (Manual) Lymphocytes % (Manual) Seg Neutrophils # Seg Neutrophils # Man Lymphocytes # (Manual) Monocytes % (Manual) Eosinophils % (Manual) Monocytes # (Manual) Eosinophils # (Manual) D-Dimer Heparin Anti-Xa Level 0.90 H ABG pH POC ABG pCO2 POC ABG pO2 ABG pO2 ABG HCO3 ABG O2 Saturation ABG Base Excess ABG Hemoglobin ABG Oxyhemoglobin VBG pH Oxyhemoglobin Sodium Potassium Chloride Carbon Dioxide BUN Creatinine Glucose POC Glucose 141 H 186 H Lactic Acid Calcium Ferritin AST Alkaline Phosphatase Magnesium Lactate Dehydrogenase Total Creatine Kinase CK-MB (CK-2) C-Reactive Protein Total Protein Albumin Troponin T HDL Cholesterol Urine WBC (Auto) Urine Creatinine Urine Total Protein Coronavirus (PCR) Crossmatch 06/14/20 06/14/20 06/14/20 16:07 18:16 23:51 WBC RBC Hgb Hct MCHC RDW Lymph % (Auto) [place] % (Auto) Eos % (Auto) Lymph # [place] # Seg Neutrophils % Seg Neuts % (Manual) Lymphocytes % (Manual) Seg Neutrophils # Seg Neutrophils # Man Lymphocytes # (Manual) Monocytes % (Manual) Eosinophils % (Manual) Monocytes # (Manual) Eosinophils # (Manual) D-Dimer Heparin Anti-Xa Level 0.82 H ABG pH POC ABG pCO2 POC ABG pO2 ABG pO2 ABG HCO3 ABG O2 Saturation ABG Base Excess ABG Hemoglobin ABG Oxyhemoglobin VBG pH Oxyhemoglobin Sodium Potassium Chloride Carbon Dioxide BUN Creatinine Glucose POC Glucose 106 H 154 H Lactic Acid Calcium Ferritin AST Alkaline Phosphatase Magnesium Lactate Dehydrogenase Total Creatine Kinase CK-MB (CK-2) C-Reactive Protein Total Protein Albumin Troponin T HDL Cholesterol Urine WBC (Auto) Urine Creatinine Urine Total Protein Coronavirus (PCR) Crossmatch 06/15/20 06/15/20 06/15/20 04:24 04:24 05:59 WBC RBC 2.75 L Hgb 7.9 L Hct 24.0 L MCHC RDW 16.4 H Lymph % (Auto) 12.9 L [place] % (Auto) 8.7 H Eos % (Auto) 4.6 H Lymph # 1.1 L [place] # Seg Neutrophils % 73.2 H Seg Neuts % (Manual) Lymphocytes % (Manual) Seg Neutrophils # Seg Neutrophils # Man Lymphocytes # (Manual) Monocytes % (Manual) Eosinophils % (Manual) Monocytes # (Manual) Eosinophils # (Manual) D-Dimer Heparin Anti-Xa Level ABG pH POC ABG pCO2 POC ABG pO2 ABG pO2 ABG HCO3 ABG O2 Saturation ABG Base Excess ABG Hemoglobin ABG Oxyhemoglobin VBG pH Oxyhemoglobin Sodium Potassium 3.4 L Chloride Carbon Dioxide BUN 55 H Creatinine 1.3 H Glucose 142 H POC Glucose 131 H Lactic Acid Calcium Ferritin AST Alkaline Phosphatase Magnesium Lactate Dehydrogenase Total Creatine Kinase CK-MB (CK-2) C-Reactive Protein Total Protein Albumin Troponin T HDL Cholesterol Urine WBC (Auto) Urine Creatinine Urine Total Protein Coronavirus (PCR) Crossmatch 06/15/20 06/15/20 06/16/20 12:33 17:07 00:22 WBC RBC Hgb Hct MCHC RDW Lymph % (Auto) [place] % (Auto) Eos % (Auto) Lymph # [place] # Seg Neutrophils % Seg Neuts % (Manual) Lymphocytes % (Manual) Seg Neutrophils # Seg Neutrophils # Man Lymphocytes # (Manual) Monocytes % (Manual) Eosinophils % (Manual) Monocytes # (Manual) Eosinophils # (Manual) D-Dimer Heparin Anti-Xa Level 0.21 L ABG pH POC ABG pCO2 POC ABG pO2 ABG pO2 ABG HCO3 ABG O2 Saturation ABG Base Excess ABG Hemoglobin ABG Oxyhemoglobin VBG pH Oxyhemoglobin Sodium Potassium Chloride Carbon Dioxide BUN Creatinine Glucose POC Glucose 180 H 185 H Lactic Acid Calcium Ferritin AST Alkaline Phosphatase Magnesium Lactate Dehydrogenase Total Creatine Kinase CK-MB (CK-2) C-Reactive Protein Total Protein Albumin Troponin T HDL Cholesterol Urine WBC (Auto) Urine Creatinine Urine Total Protein Coronavirus (PCR) Crossmatch 06/16/20 06/16/20 06/16/20 01:45 08:06 09:15 WBC RBC Hgb Hct MCHC RDW Lymph % (Auto) [place] % (Auto) Eos % (Auto) Lymph # [place] # Seg Neutrophils % Seg Neuts % (Manual) Lymphocytes % (Manual) Seg Neutrophils # Seg Neutrophils # Man Lymphocytes # (Manual) Monocytes % (Manual) Eosinophils % (Manual) Monocytes # (Manual) Eosinophils # (Manual) D-Dimer Heparin Anti-Xa Level ABG pH POC ABG pCO2 POC ABG pO2 ABG pO2 ABG HCO3 ABG O2 Saturation ABG Base Excess ABG Hemoglobin ABG Oxyhemoglobin VBG pH Oxyhemoglobin Sodium Potassium Chloride Carbon Dioxide BUN 49 H Creatinine Glucose 154 H POC Glucose 140 H 171 H Lactic Acid Calcium Ferritin AST Alkaline Phosphatase Magnesium Lactate Dehydrogenase Total Creatine Kinase CK-MB (CK-2) C-Reactive Protein Total Protein Albumin Troponin T HDL Cholesterol Urine WBC (Auto) Urine Creatinine Urine Total Protein Coronavirus (PCR) Crossmatch 06/16/20 06/16/20 06/16/20 10:46 12:33 17:54 WBC RBC Hgb Hct MCHC RDW Lymph % (Auto) [place] % (Auto) Eos % (Auto) Lymph # [place] # Seg Neutrophils % Seg Neuts % (Manual) Lymphocytes % (Manual) Seg Neutrophils # Seg Neutrophils # Man Lymphocytes # (Manual) Monocytes % (Manual) Eosinophils % (Manual) Monocytes # (Manual) Eosinophils # (Manual) D-Dimer Heparin Anti-Xa Level 0.12 L ABG pH POC ABG pCO2 POC ABG pO2 ABG pO2 ABG HCO3 ABG O2 Saturation ABG Base Excess ABG Hemoglobin ABG Oxyhemoglobin VBG pH Oxyhemoglobin Sodium Potassium Chloride Carbon Dioxide BUN Creatinine Glucose POC Glucose 166 H 151 H Lactic Acid Calcium Ferritin AST Alkaline Phosphatase Magnesium Lactate Dehydrogenase Total Creatine Kinase CK-MB (CK-2) C-Reactive Protein Total Protein Albumin Troponin T HDL Cholesterol Urine WBC (Auto) Urine Creatinine Urine Total Protein Coronavirus (PCR) Crossmatch 06/16/20 06/17/20 06/17/20 18:47 00:00 02:19 WBC RBC Hgb Hct MCHC RDW Lymph % (Auto) [place] % (Auto) Eos % (Auto) Lymph # [place] # Seg Neutrophils % Seg Neuts % (Manual) Lymphocytes % (Manual) Seg Neutrophils # Seg Neutrophils # Man Lymphocytes # (Manual) Monocytes % (Manual) Eosinophils % (Manual) Monocytes # (Manual) Eosinophils # (Manual) D-Dimer Heparin Anti-Xa Level 0.73 H 0.77 H ABG pH POC ABG pCO2 POC ABG pO2 ABG pO2 ABG HCO3 ABG O2 Saturation ABG Base Excess ABG Hemoglobin ABG Oxyhemoglobin VBG pH Oxyhemoglobin Sodium Potassium Chloride Carbon Dioxide BUN Creatinine Glucose POC Glucose 139 H Lactic Acid Calcium Ferritin AST Alkaline Phosphatase Magnesium Lactate Dehydrogenase Total Creatine Kinase CK-MB (CK-2) C-Reactive Protein Total Protein Albumin Troponin T HDL Cholesterol Urine WBC (Auto) Urine Creatinine Urine Total Protein Coronavirus (PCR) Crossmatch 06/17/20 06/17/20 06/17/20 06:07 11:42 16:43 WBC RBC Hgb Hct MCHC RDW Lymph % (Auto) [place] % (Auto) Eos % (Auto) Lymph # [place] # Seg Neutrophils % Seg Neuts % (Manual) Lymphocytes % (Manual) Seg Neutrophils # Seg Neutrophils # Man Lymphocytes # (Manual) Monocytes % (Manual) Eosinophils % (Manual) Monocytes # (Manual) Eosinophils # (Manual) D-Dimer Heparin Anti-Xa Level 0.73 H ABG pH POC ABG pCO2 POC ABG pO2 ABG pO2 ABG HCO3 ABG O2 Saturation ABG Base Excess ABG Hemoglobin ABG Oxyhemoglobin VBG pH Oxyhemoglobin Sodium Potassium Chloride Carbon Dioxide BUN Creatinine Glucose POC Glucose 169 H 169 H Lactic Acid Calcium Ferritin AST Alkaline Phosphatase Magnesium Lactate Dehydrogenase Total Creatine Kinase CK-MB (CK-2) C-Reactive Protein Total Protein Albumin Troponin T HDL Cholesterol Urine WBC (Auto) Urine Creatinine Urine Total Protein Coronavirus (PCR) Crossmatch 06/17/20 06/17/20 06/17/20 18:18 23:08 23:16 WBC RBC Hgb Hct MCHC RDW Lymph % (Auto) [place] % (Auto) Eos % (Auto) Lymph # [place] # Seg Neutrophils % Seg Neuts % (Manual) Lymphocytes % (Manual) Seg Neutrophils # Seg Neutrophils # Man Lymphocytes # (Manual) Monocytes % (Manual) Eosinophils % (Manual) Monocytes # (Manual) Eosinophils # (Manual) D-Dimer Heparin Anti-Xa Level 0.71 H ABG pH POC ABG pCO2 POC ABG pO2 ABG pO2 ABG HCO3 ABG O2 Saturation ABG Base Excess ABG Hemoglobin ABG Oxyhemoglobin VBG pH Oxyhemoglobin Sodium Potassium Chloride Carbon Dioxide BUN Creatinine Glucose POC Glucose 159 H 134 H Lactic Acid Calcium Ferritin AST Alkaline Phosphatase Magnesium Lactate Dehydrogenase Total Creatine Kinase CK-MB (CK-2) C-Reactive Protein Total Protein Albumin Troponin T HDL Cholesterol Urine WBC (Auto) Urine Creatinine Urine Total Protein Coronavirus (PCR) Crossmatch 06/18/20 06/18/20 06/18/20 04:42 05:52 11:50 WBC RBC Hgb Hct MCHC RDW Lymph % (Auto) [place] % (Auto) Eos % (Auto) Lymph # [place] # Seg Neutrophils % Seg Neuts % (Manual) Lymphocytes % (Manual) Seg Neutrophils # Seg Neutrophils # Man Lymphocytes # (Manual) Monocytes % (Manual) Eosinophils % (Manual) Monocytes # (Manual) Eosinophils # (Manual) D-Dimer Heparin Anti-Xa Level ABG pH POC ABG pCO2 POC ABG pO2 ABG pO2 ABG HCO3 ABG O2 Saturation ABG Base Excess ABG Hemoglobin ABG Oxyhemoglobin VBG pH Oxyhemoglobin Sodium Potassium Chloride Carbon Dioxide BUN 44 H Creatinine Glucose 115 H POC Glucose 171 H 167 H Lactic Acid Calcium Ferritin AST Alkaline Phosphatase Magnesium Lactate Dehydrogenase Total Creatine Kinase CK-MB (CK-2) C-Reactive Protein Total Protein Albumin Troponin T HDL Cholesterol Urine WBC (Auto) Urine Creatinine Urine Total Protein Coronavirus (PCR) Crossmatch 06/18/20 06/19/20 06/19/20 23:46 05:48 07:52 WBC RBC Hgb Hct MCHC RDW Lymph % (Auto) [place] % (Auto) Eos % (Auto) Lymph # [place] # Seg Neutrophils % Seg Neuts % (Manual) Lymphocytes % (Manual) Seg Neutrophils # Seg Neutrophils # Man Lymphocytes # (Manual) Monocytes % (Manual) Eosinophils % (Manual) Monocytes # (Manual) Eosinophils # (Manual) D-Dimer Heparin Anti-Xa Level ABG pH POC ABG pCO2 POC ABG pO2 ABG pO2 ABG HCO3 ABG O2 Saturation ABG Base Excess ABG Hemoglobin ABG Oxyhemoglobin VBG pH Oxyhemoglobin Sodium Potassium Chloride Carbon Dioxide BUN Creatinine Glucose POC Glucose 130 H 207 H 175 H Lactic Acid Calcium Ferritin AST Alkaline Phosphatase Magnesium Lactate Dehydrogenase Total Creatine Kinase CK-MB (CK-2) C-Reactive Protein Total Protein Albumin Troponin T HDL Cholesterol Urine WBC (Auto) Urine Creatinine Urine Total Protein Coronavirus (PCR) Crossmatch 06/19/20 06/19/20 06/20/20 11:42 22:54 05:17 WBC RBC Hgb Hct MCHC RDW Lymph % (Auto) [place] % (Auto) Eos % (Auto) Lymph # [place] # Seg Neutrophils % Seg Neuts % (Manual) Lymphocytes % (Manual) Seg Neutrophils # Seg Neutrophils # Man Lymphocytes # (Manual) Monocytes % (Manual) Eosinophils % (Manual) Monocytes # (Manual) Eosinophils # (Manual) D-Dimer Heparin Anti-Xa Level ABG pH POC ABG pCO2 POC ABG pO2 ABG pO2 ABG HCO3 ABG O2 Saturation ABG Base Excess ABG Hemoglobin ABG Oxyhemoglobin VBG pH Oxyhemoglobin Sodium Potassium Chloride Carbon Dioxide BUN Creatinine Glucose POC Glucose 166 H 135 H 218 H Lactic Acid Calcium Ferritin AST Alkaline Phosphatase Magnesium Lactate Dehydrogenase Total Creatine Kinase CK-MB (CK-2) C-Reactive Protein Total Protein Albumin Troponin T HDL Cholesterol Urine WBC (Auto) Urine Creatinine Urine Total Protein Coronavirus (PCR) Crossmatch 06/20/20 06/20/20 06/20/20 12:04 16:25 16:35 WBC RBC Hgb Hct MCHC RDW Lymph % (Auto) [place] % (Auto) Eos % (Auto) Lymph # [place] # Seg Neutrophils % Seg Neuts % (Manual) Lymphocytes % (Manual) Seg Neutrophils # Seg Neutrophils # Man Lymphocytes # (Manual) Monocytes % (Manual) Eosinophils % (Manual) Monocytes # (Manual) Eosinophils # (Manual) D-Dimer Heparin Anti-Xa Level ABG pH POC ABG pCO2 POC ABG pO2 ABG pO2 59.6 L ABG HCO3 28.7 H ABG O2 Saturation 93.5 L ABG Base Excess 3.4 H ABG Hemoglobin 7.2 L ABG Oxyhemoglobin VBG pH Oxyhemoglobin 91.3 L Sodium Potassium Chloride Carbon Dioxide BUN Creatinine Glucose POC Glucose 194 H 137 H Lactic Acid Calcium Ferritin AST Alkaline Phosphatase Magnesium Lactate Dehydrogenase Total Creatine Kinase CK-MB (CK-2) C-Reactive Protein Total Protein Albumin Troponin T HDL Cholesterol Urine WBC (Auto) Urine Creatinine Urine Total Protein Coronavirus (PCR) Crossmatch 06/20/20 06/21/20 06/21/20 23:59 06:25 12:01 WBC RBC Hgb Hct MCHC RDW Lymph % (Auto) [place] % (Auto) Eos % (Auto) Lymph # [place] # Seg Neutrophils % Seg Neuts % (Manual) Lymphocytes % (Manual) Seg Neutrophils # Seg Neutrophils # Man Lymphocytes # (Manual) Monocytes % (Manual) Eosinophils % (Manual) Monocytes # (Manual) Eosinophils # (Manual) D-Dimer Heparin Anti-Xa Level ABG pH POC ABG pCO2 POC ABG pO2 ABG pO2 ABG HCO3 ABG O2 Saturation ABG Base Excess ABG Hemoglobin ABG Oxyhemoglobin VBG pH Oxyhemoglobin Sodium Potassium Chloride Carbon Dioxide BUN Creatinine Glucose POC Glucose 156 H 177 H 195 H Lactic Acid Calcium Ferritin AST Alkaline Phosphatase Magnesium Lactate Dehydrogenase Total Creatine Kinase CK-MB (CK-2) C-Reactive Protein Total Protein Albumin Troponin T HDL Cholesterol Urine WBC (Auto) Urine Creatinine Urine Total Protein Coronavirus (PCR) Crossmatch 06/21/20 06/21/20 06/22/20 17:04 21:51 05:06 WBC RBC Hgb Hct MCHC RDW Lymph % (Auto) [place] % (Auto) Eos % (Auto) Lymph # [place] # Seg Neutrophils % Seg Neuts % (Manual) Lymphocytes % (Manual) Seg Neutrophils # Seg Neutrophils # Man Lymphocytes # (Manual) Monocytes % (Manual) Eosinophils % (Manual) Monocytes # (Manual) Eosinophils # (Manual) D-Dimer Heparin Anti-Xa Level ABG pH POC ABG pCO2 POC ABG pO2 ABG pO2 ABG HCO3 ABG O2 Saturation ABG Base Excess ABG Hemoglobin ABG Oxyhemoglobin VBG pH Oxyhemoglobin Sodium Potassium Chloride Carbon Dioxide BUN Creatinine Glucose POC Glucose 156 H 154 H 167 H Lactic Acid Calcium Ferritin AST Alkaline Phosphatase Magnesium Lactate Dehydrogenase Total Creatine Kinase CK-MB (CK-2) C-Reactive Protein Total Protein Albumin Troponin T HDL Cholesterol Urine WBC (Auto) Urine Creatinine Urine Total Protein Coronavirus (PCR) Crossmatch 06/22/20 06/22/20 06/22/20 11:20 15:27 16:58 WBC RBC Hgb Hct MCHC RDW Lymph % (Auto) [place] % (Auto) Eos % (Auto) Lymph # [place] # Seg Neutrophils % Seg Neuts % (Manual) Lymphocytes % (Manual) Seg Neutrophils # Seg Neutrophils # Man Lymphocytes # (Manual) Monocytes % (Manual) Eosinophils % (Manual) Monocytes # (Manual) Eosinophils # (Manual) D-Dimer Heparin Anti-Xa Level ABG pH 7.206 L POC ABG pCO2 79.9 H POC ABG pO2 ABG pO2 ABG HCO3 ABG O2 Saturation ABG Base Excess ABG Hemoglobin 8.3 L ABG Oxyhemoglobin VBG pH Oxyhemoglobin Sodium Potassium Chloride Carbon Dioxide BUN Creatinine Glucose POC Glucose 181 H 230 H Lactic Acid Calcium Ferritin AST Alkaline Phosphatase Magnesium Lactate Dehydrogenase Total Creatine Kinase CK-MB (CK-2) C-Reactive Protein Total Protein Albumin Troponin T HDL Cholesterol Urine WBC (Auto) Urine Creatinine Urine Total Protein Coronavirus (PCR) Crossmatch 06/22/20 06/23/20 06/23/20 22:26 05:49 05:49 WBC RBC 2.58 L Hgb 7.4 L Hct 23.2 L MCHC RDW 17.0 H Lymph % (Auto) [place] % (Auto) 11.2 H Eos % (Auto) Lymph # 1.0 L [place] # Seg Neutrophils % Seg Neuts % (Manual) Lymphocytes % (Manual) Seg Neutrophils # Seg Neutrophils # Man Lymphocytes # (Manual) Monocytes % (Manual) Eosinophils % (Manual) Monocytes # (Manual) Eosinophils # (Manual) D-Dimer Heparin Anti-Xa Level ABG pH POC ABG pCO2 POC ABG pO2 ABG pO2 ABG HCO3 ABG O2 Saturation ABG Base Excess ABG Hemoglobin ABG Oxyhemoglobin VBG pH Oxyhemoglobin Sodium Potassium Chloride Carbon Dioxide BUN 68 H Creatinine 2.4 H Glucose 198 H POC Glucose 195 H Lactic Acid Calcium Ferritin AST Alkaline Phosphatase Magnesium Lactate Dehydrogenase Total Creatine Kinase CK-MB (CK-2) C-Reactive Protein Total Protein Albumin Troponin T HDL Cholesterol Urine WBC (Auto) Urine Creatinine Urine Total Protein Coronavirus (PCR) Crossmatch 06/23/20 06/23/20 06/23/20 05:50 12:29 12:34 WBC RBC Hgb Hct MCHC RDW Lymph % (Auto) [place] % (Auto) Eos % (Auto) Lymph # [place] # Seg Neutrophils % Seg Neuts % (Manual) Lymphocytes % (Manual) Seg Neutrophils # Seg Neutrophils # Man Lymphocytes # (Manual) Monocytes % (Manual) Eosinophils % (Manual) Monocytes # (Manual) Eosinophils # (Manual) D-Dimer Heparin Anti-Xa Level ABG pH POC ABG pCO2 54.7 H POC ABG pO2 68.8 L ABG pO2 ABG HCO3 ABG O2 Saturation ABG Base Excess ABG Hemoglobin 9.8 L ABG Oxyhemoglobin 92.6 L VBG pH Oxyhemoglobin Sodium Potassium Chloride Carbon Dioxide BUN Creatinine Glucose POC Glucose 202 H 218 H Lactic Acid Calcium Ferritin AST Alkaline Phosphatase Magnesium Lactate Dehydrogenase Total Creatine Kinase CK-MB (CK-2) C-Reactive Protein Total Protein Albumin Troponin T HDL Cholesterol Urine WBC (Auto) Urine Creatinine Urine Total Protein Coronavirus (PCR) Crossmatch 06/23/20 06/23/20 06/24/20 16:02 22:22 01:06 WBC RBC Hgb Hct MCHC RDW Lymph % (Auto) [place] % (Auto) Eos % (Auto) Lymph # [place] # Seg Neutrophils % Seg Neuts % (Manual) Lymphocytes % (Manual) Seg Neutrophils # Seg Neutrophils # Man Lymphocytes # (Manual) Monocytes % (Manual) Eosinophils % (Manual) Monocytes # (Manual) Eosinophils # (Manual) D-Dimer Heparin Anti-Xa Level ABG pH POC ABG pCO2 POC ABG pO2 ABG pO2 ABG HCO3 ABG O2 Saturation ABG Base Excess ABG Hemoglobin ABG Oxyhemoglobin VBG pH Oxyhemoglobin Sodium Potassium Chloride Carbon Dioxide BUN Creatinine Glucose POC Glucose 190 H 166 H 171 H Lactic Acid Calcium Ferritin AST Alkaline Phosphatase Magnesium Lactate Dehydrogenase Total Creatine Kinase CK-MB (CK-2) C-Reactive Protein Total Protein Albumin Troponin T HDL Cholesterol Urine WBC (Auto) Urine Creatinine Urine Total Protein Coronavirus (PCR) Crossmatch 06/24/20 06/24/20 06/24/20 04:48 05:35 11:48 WBC RBC Hgb Hct MCHC RDW Lymph % (Auto) [place] % (Auto) Eos % (Auto) Lymph # [place] # Seg Neutrophils % Seg Neuts % (Manual) Lymphocytes % (Manual) Seg Neutrophils # Seg Neutrophils # Man Lymphocytes # (Manual) Monocytes % (Manual) Eosinophils % (Manual) Monocytes # (Manual) Eosinophils # (Manual) D-Dimer Heparin Anti-Xa Level ABG pH POC ABG pCO2 POC ABG pO2 ABG pO2 ABG HCO3 ABG O2 Saturation ABG Base Excess ABG Hemoglobin ABG Oxyhemoglobin VBG pH Oxyhemoglobin Sodium Potassium Chloride Carbon Dioxide BUN 75 H Creatinine 2.6 H Glucose 179 H POC Glucose 172 H 153 H Lactic Acid Calcium Ferritin AST Alkaline Phosphatase Magnesium Lactate Dehydrogenase Total Creatine Kinase CK-MB (CK-2) C-Reactive Protein Total Protein Albumin Troponin T HDL Cholesterol Urine WBC (Auto) Urine Creatinine Urine Total Protein Coronavirus (PCR) Crossmatch 06/24/20 06/24/20 06/25/20 16:38 21:52 12:00 WBC RBC Hgb Hct MCHC RDW Lymph % (Auto) [place] % (Auto) Eos % (Auto) Lymph # [place] # Seg Neutrophils % Seg Neuts % (Manual) Lymphocytes % (Manual) Seg Neutrophils # Seg Neutrophils # Man Lymphocytes # (Manual) Monocytes % (Manual) Eosinophils % (Manual) Monocytes # (Manual) Eosinophils # (Manual) D-Dimer Heparin Anti-Xa Level ABG pH POC ABG pCO2 POC ABG pO2 ABG pO2 ABG HCO3 ABG O2 Saturation ABG Base Excess ABG Hemoglobin ABG Oxyhemoglobin VBG pH Oxyhemoglobin Sodium Potassium Chloride Carbon Dioxide BUN Creatinine Glucose POC Glucose 123 H 115 H 203 H Lactic Acid Calcium Ferritin AST Alkaline Phosphatase Magnesium Lactate Dehydrogenase Total Creatine Kinase CK-MB (CK-2) C-Reactive Protein Total Protein Albumin Troponin T HDL Cholesterol Urine WBC (Auto) Urine Creatinine Urine Total Protein Coronavirus (PCR) Crossmatch 06/25/20 06/25/20 06/25/20 15:43 16:37 23:02 WBC RBC Hgb Hct MCHC RDW Lymph % (Auto) [place] % (Auto) Eos % (Auto) Lymph # [place] # Seg Neutrophils % Seg Neuts % (Manual) Lymphocytes % (Manual) Seg Neutrophils # Seg Neutrophils # Man Lymphocytes # (Manual) Monocytes % (Manual) Eosinophils % (Manual) Monocytes # (Manual) Eosinophils # (Manual) D-Dimer Heparin Anti-Xa Level ABG pH POC ABG pCO2 POC ABG pO2 ABG pO2 ABG HCO3 ABG O2 Saturation ABG Base Excess ABG Hemoglobin ABG Oxyhemoglobin VBG pH Oxyhemoglobin Sodium Potassium Chloride Carbon Dioxide BUN 71 H Creatinine 1.8 H Glucose 170 H POC Glucose 191 H 126 H Lactic Acid Calcium 8.2 L Ferritin AST Alkaline Phosphatase Magnesium Lactate Dehydrogenase Total Creatine Kinase CK-MB (CK-2) C-Reactive Protein Total Protein Albumin Troponin T HDL Cholesterol Urine WBC (Auto) Urine Creatinine Urine Total Protein Coronavirus (PCR) Crossmatch 06/26/20 06/26/20 06/26/20 06:34 06:34 09:27 WBC RBC 2.41 L Hgb 6.9 L Hct 21.5 L MCHC RDW 16.7 H Lymph % (Auto) 10.9 L [place] % (Auto) 9.6 H Eos % (Auto) Lymph # 0.7 L [place] # Seg Neutrophils % 75.4 H Seg Neuts % (Manual) Lymphocytes % (Manual) Seg Neutrophils # Seg Neutrophils # Man Lymphocytes # (Manual) Monocytes % (Manual) Eosinophils % (Manual) Monocytes # (Manual) Eosinophils # (Manual) D-Dimer Heparin Anti-Xa Level ABG pH POC ABG pCO2 POC ABG pO2 ABG pO2 ABG HCO3 ABG O2 Saturation ABG Base Excess ABG Hemoglobin ABG Oxyhemoglobin VBG pH Oxyhemoglobin Sodium Potassium Chloride Carbon Dioxide BUN 77 H Creatinine 1.9 H Glucose 190 H POC Glucose Lactic Acid Calcium Ferritin AST Alkaline Phosphatase Magnesium Lactate Dehydrogenase Total Creatine Kinase CK-MB (CK-2) C-Reactive Protein Total Protein Albumin Troponin T HDL Cholesterol Urine WBC (Auto) Urine Creatinine Urine Total Protein Coronavirus (PCR) Crossmatch See Detail 06/26/20 06/26/20 06/26/20 12:15 16:28 17:28 WBC RBC Hgb Hct MCHC RDW Lymph % (Auto) [place] % (Auto) Eos % (Auto) Lymph # [place] # Seg Neutrophils % Seg Neuts % (Manual) Lymphocytes % (Manual) Seg Neutrophils # Seg Neutrophils # Man Lymphocytes # (Manual) Monocytes % (Manual) Eosinophils % (Manual) Monocytes # (Manual) Eosinophils # (Manual) D-Dimer Heparin Anti-Xa Level ABG pH POC ABG pCO2 POC ABG pO2 ABG pO2 ABG HCO3 ABG O2 Saturation ABG Base Excess ABG Hemoglobin ABG Oxyhemoglobin VBG pH Oxyhemoglobin Sodium Potassium Chloride Carbon Dioxide BUN Creatinine Glucose POC Glucose 187 H 149 H 189 H Lactic Acid Calcium Ferritin AST Alkaline Phosphatase Magnesium Lactate Dehydrogenase Total Creatine Kinase CK-MB (CK-2) C-Reactive Protein Total Protein Albumin Troponin T HDL Cholesterol Urine WBC (Auto) Urine Creatinine Urine Total Protein Coronavirus (PCR) Crossmatch 06/26/20 06/26/20 06/26/20 18:30 18:30 18:30 WBC RBC 2.87 L Hgb 8.2 L Hct 25.9 L MCHC RDW 17.8 H Lymph % (Auto) [place] % (Auto) Eos % (Auto) Lymph # [place] # Seg Neutrophils % Seg Neuts % (Manual) 83.0 H Lymphocytes % (Manual) 8.0 L Seg Neutrophils # Seg Neutrophils # Man Lymphocytes # (Manual) 0.6 L Monocytes % (Manual) Eosinophils % (Manual) Monocytes # (Manual) Eosinophils # (Manual) D-Dimer Heparin Anti-Xa Level ABG pH POC ABG pCO2 POC ABG pO2 ABG pO2 ABG HCO3 ABG O2 Saturation ABG Base Excess ABG Hemoglobin ABG Oxyhemoglobin VBG pH Oxyhemoglobin Sodium Potassium Chloride Carbon Dioxide BUN 80 H Creatinine 2.1 H Glucose 260 H POC Glucose Lactic Acid 4.30 H* Calcium 8.3 L Ferritin AST Alkaline Phosphatase Magnesium Lactate Dehydrogenase Total Creatine Kinase CK-MB (CK-2) C-Reactive Protein Total Protein Albumin Troponin T HDL Cholesterol Urine WBC (Auto) Urine Creatinine Urine Total Protein Coronavirus (PCR) Crossmatch 06/26/20 06/27/20 06/27/20 18:50 01:00 04:29 WBC RBC Hgb Hct MCHC RDW Lymph % (Auto) [place] % (Auto) Eos % (Auto) Lymph # [place] # Seg Neutrophils % Seg Neuts % (Manual) Lymphocytes % (Manual) Seg Neutrophils # Seg Neutrophils # Man Lymphocytes # (Manual) Monocytes % (Manual) Eosinophils % (Manual) Monocytes # (Manual) Eosinophils # (Manual) D-Dimer Heparin Anti-Xa Level ABG pH 7.296 L POC ABG pCO2 POC ABG pO2 ABG pO2 116.5 H 200.5 H ABG HCO3 28.4 H ABG O2 Saturation 99.3 H ABG Base Excess 3.7 H ABG Hemoglobin 5.6 L ABG Oxyhemoglobin VBG pH Oxyhemoglobin Sodium Potassium Chloride Carbon Dioxide BUN Creatinine Glucose POC Glucose 123 H Lactic Acid Calcium Ferritin AST Alkaline Phosphatase Magnesium Lactate Dehydrogenase Total Creatine Kinase CK-MB (CK-2) C-Reactive Protein Total Protein Albumin Troponin T HDL Cholesterol Urine WBC (Auto) Urine Creatinine Urine Total Protein Coronavirus (PCR) Crossmatch 06/27/20 06/27/20 06/27/20 05:00 05:00 05:00 WBC RBC 2.75 L Hgb 7.9 L Hct 24.3 L MCHC RDW 17.1 H Lymph % (Auto) 8.5 L [place] % (Auto) 12.6 H Eos % (Auto) Lymph # 0.7 L [place] # 1.0 H Seg Neutrophils % 77.5 H Seg Neuts % (Manual) Lymphocytes % (Manual) Seg Neutrophils # Seg Neutrophils # Man Lymphocytes # (Manual) Monocytes % (Manual) Eosinophils % (Manual) Monocytes # (Manual) Eosinophils # (Manual) D-Dimer Heparin Anti-Xa Level ABG pH POC ABG pCO2 POC ABG pO2 ABG pO2 ABG HCO3 ABG O2 Saturation ABG Base Excess ABG Hemoglobin ABG Oxyhemoglobin VBG pH Oxyhemoglobin Sodium Potassium Chloride Carbon Dioxide BUN 80 H Creatinine 2.0 H Glucose 129 H POC Glucose Lactic Acid 0.60 L Calcium 7.9 L Ferritin AST Alkaline Phosphatase Magnesium Lactate Dehydrogenase Total Creatine Kinase CK-MB (CK-2) C-Reactive Protein Total Protein Albumin Troponin T HDL Cholesterol Urine WBC (Auto) Urine Creatinine Urine Total Protein Coronavirus (PCR) Crossmatch 06/27/20 06/27/20 06/27/20 05:23 13:46 17:25 WBC RBC Hgb Hct MCHC RDW Lymph % (Auto) [place] % (Auto) Eos % (Auto) Lymph # [place] # Seg Neutrophils % Seg Neuts % (Manual) Lymphocytes % (Manual) Seg Neutrophils # Seg Neutrophils # Man Lymphocytes # (Manual) Monocytes % (Manual) Eosinophils % (Manual) Monocytes # (Manual) Eosinophils # (Manual) D-Dimer Heparin Anti-Xa Level ABG pH POC ABG pCO2 POC ABG pO2 ABG pO2 ABG HCO3 ABG O2 Saturation ABG Base Excess ABG Hemoglobin ABG Oxyhemoglobin VBG pH Oxyhemoglobin Sodium Potassium Chloride Carbon Dioxide BUN Creatinine Glucose POC Glucose 109 H 158 H 162 H Lactic Acid Calcium Ferritin AST Alkaline Phosphatase Magnesium Lactate Dehydrogenase Total Creatine Kinase CK-MB (CK-2) C-Reactive Protein Total Protein Albumin Troponin T HDL Cholesterol Urine WBC (Auto) Urine Creatinine Urine Total Protein Coronavirus (PCR) Crossmatch 06/27/20 06/27/20 06/28/20 18:43 23:46 04:05 WBC RBC Hgb 7.7 L Hct 22.1 L MCHC RDW Lymph % (Auto) [place] % (Auto) Eos % (Auto) Lymph # [place] # Seg Neutrophils % Seg Neuts % (Manual) Lymphocytes % (Manual) Seg Neutrophils # Seg Neutrophils # Man Lymphocytes # (Manual) Monocytes % (Manual) Eosinophils % (Manual) Monocytes # (Manual) Eosinophils # (Manual) D-Dimer Heparin Anti-Xa Level ABG pH POC ABG pCO2 POC ABG pO2 ABG pO2 102.7 H ABG HCO3 28.7 H ABG O2 Saturation ABG Base Excess 3.7 H ABG Hemoglobin ABG Oxyhemoglobin VBG pH Oxyhemoglobin Sodium Potassium Chloride Carbon Dioxide BUN Creatinine Glucose POC Glucose 142 H Lactic Acid Calcium Ferritin AST Alkaline Phosphatase Magnesium Lactate Dehydrogenase Total Creatine Kinase CK-MB (CK-2) C-Reactive Protein Total Protein Albumin Troponin T HDL Cholesterol Urine WBC (Auto) Urine Creatinine Urine Total Protein Coronavirus (PCR) Crossmatch 06/28/20 06/28/20 06/28/20 09:47 09:47 12:02 WBC RBC 2.53 L Hgb 7.4 L Hct 22.2 L MCHC RDW 16.8 H Lymph % (Auto) [place] % (Auto) 13.5 H Eos % (Auto) Lymph # 1.1 L [place] # 1.0 H Seg Neutrophils % Seg Neuts % (Manual) Lymphocytes % (Manual) Seg Neutrophils # Seg Neutrophils # Man Lymphocytes # (Manual) Monocytes % (Manual) Eosinophils % (Manual) Monocytes # (Manual) Eosinophils # (Manual) D-Dimer Heparin Anti-Xa Level ABG pH POC ABG pCO2 POC ABG pO2 ABG pO2 ABG HCO3 ABG O2 Saturation ABG Base Excess ABG Hemoglobin ABG Oxyhemoglobin VBG pH Oxyhemoglobin Sodium Potassium Chloride Carbon Dioxide BUN 80 H Creatinine 1.5 H Glucose 139 H POC Glucose 169 H Lactic Acid Calcium 7.9 L Ferritin AST Alkaline Phosphatase Magnesium Lactate Dehydrogenase Total Creatine Kinase CK-MB (CK-2) C-Reactive Protein Total Protein 5.0 L Albumin 2.1 L Troponin T HDL Cholesterol Urine WBC (Auto) Urine Creatinine Urine Total Protein Coronavirus (PCR) Crossmatch 06/28/20 06/28/20 06/28/20 12:30 12:30 17:24 WBC RBC 2.38 L Hgb 7.3 L Hct 20.9 L MCHC 35 H RDW 16.7 H Lymph % (Auto) [place] % (Auto) Eos % (Auto) Lymph # [place] # Seg Neutrophils % Seg Neuts % (Manual) Lymphocytes % (Manual) Seg Neutrophils # Seg Neutrophils # Man Lymphocytes # (Manual) Monocytes % (Manual) Eosinophils % (Manual) Monocytes # (Manual) Eosinophils # (Manual) D-Dimer Heparin Anti-Xa Level ABG pH POC ABG pCO2 POC ABG pO2 ABG pO2 ABG HCO3 ABG O2 Saturation ABG Base Excess ABG Hemoglobin ABG Oxyhemoglobin VBG pH Oxyhemoglobin Sodium Potassium Chloride Carbon Dioxide BUN 74 H Creatinine 1.5 H Glucose 143 H POC Glucose 173 H Lactic Acid Calcium 7.5 L Ferritin AST Alkaline Phosphatase Magnesium Lactate Dehydrogenase Total Creatine Kinase CK-MB (CK-2) C-Reactive Protein Total Protein Albumin Troponin T HDL Cholesterol Urine WBC (Auto) Urine Creatinine Urine Total Protein Coronavirus (PCR) Crossmatch 06/29/20 06/29/20 06/29/20 00:02 03:54 04:38 WBC RBC 2.55 L Hgb 7.3 L Hct 22.4 L MCHC RDW 16.4 H Lymph % (Auto) 13.3 L [place] % (Auto) 12.5 H Eos % (Auto) Lymph # 1.1 L [place] # 1.0 H Seg Neutrophils % Seg Neuts % (Manual) Lymphocytes % (Manual) Seg Neutrophils # Seg Neutrophils # Man Lymphocytes # (Manual) Monocytes % (Manual) Eosinophils % (Manual) Monocytes # (Manual) Eosinophils # (Manual) D-Dimer Heparin Anti-Xa Level ABG pH POC ABG pCO2 POC ABG pO2 ABG pO2 ABG HCO3 26.9 H ABG O2 Saturation ABG Base Excess ABG Hemoglobin 6.9 L ABG Oxyhemoglobin VBG pH Oxyhemoglobin Sodium Potassium Chloride Carbon Dioxide BUN Creatinine Glucose POC Glucose 142 H Lactic Acid Calcium Ferritin AST Alkaline Phosphatase Magnesium Lactate Dehydrogenase Total Creatine Kinase CK-MB (CK-2) C-Reactive Protein Total Protein Albumin Troponin T HDL Cholesterol Urine WBC (Auto) Urine Creatinine Urine Total Protein Coronavirus (PCR) Crossmatch 06/29/20 06/29/20 06/29/20 04:38 05:38 12:25 WBC RBC Hgb Hct MCHC RDW Lymph % (Auto) [place] % (Auto) Eos % (Auto) Lymph # [place] # Seg Neutrophils % Seg Neuts % (Manual) Lymphocytes % (Manual) Seg Neutrophils # Seg Neutrophils # Man Lymphocytes # (Manual) Monocytes % (Manual) Eosinophils % (Manual) Monocytes # (Manual) Eosinophils # (Manual) D-Dimer Heparin Anti-Xa Level ABG pH POC ABG pCO2 POC ABG pO2 ABG pO2 ABG HCO3 ABG O2 Saturation ABG Base Excess ABG Hemoglobin ABG Oxyhemoglobin VBG pH Oxyhemoglobin Sodium Potassium Chloride 107.8 H Carbon Dioxide BUN 72 H Creatinine 1.4 H Glucose 127 H POC Glucose 122 H 138 H Lactic Acid Calcium 7.4 L Ferritin AST Alkaline Phosphatase Magnesium Lactate Dehydrogenase Total Creatine Kinase CK-MB (CK-2) C-Reactive Protein Total Protein Albumin Troponin T HDL Cholesterol Urine WBC (Auto) Urine Creatinine Urine Total Protein Coronavirus (PCR) Crossmatch 06/29/20 06/29/20 06/29/20 14:45 14:45 14:45 WBC RBC Hgb Hct MCHC RDW Lymph % (Auto) [place] % (Auto) Eos % (Auto) Lymph # [place] # Seg Neutrophils % Seg Neuts % (Manual) Lymphocytes % (Manual) Seg Neutrophils # Seg Neutrophils # Man Lymphocytes # (Manual) Monocytes % (Manual) Eosinophils % (Manual) Monocytes # (Manual) Eosinophils # (Manual) D-Dimer 2310.15 H Heparin Anti-Xa Level ABG pH POC ABG pCO2 POC ABG pO2 ABG pO2 ABG HCO3 ABG O2 Saturation ABG Base Excess ABG Hemoglobin ABG Oxyhemoglobin VBG pH Oxyhemoglobin Sodium Potassium Chloride Carbon Dioxide BUN Creatinine Glucose POC Glucose Lactic Acid Calcium Ferritin 223.6 H AST Alkaline Phosphatase Magnesium Lactate Dehydrogenase 367 H Total Creatine Kinase CK-MB (CK-2) C-Reactive Protein 3.60 H Total Protein Albumin Troponin T HDL Cholesterol Urine WBC (Auto) Urine Creatinine Urine Total Protein Coronavirus (PCR) Crossmatch 06/29/20 06/29/20 06/29/20 18:27 23:35 Unknown WBC RBC Hgb Hct MCHC RDW Lymph % (Auto) [place] % (Auto) Eos % (Auto) Lymph # [place] # Seg Neutrophils % Seg Neuts % (Manual) Lymphocytes % (Manual) Seg Neutrophils # Seg Neutrophils # Man Lymphocytes # (Manual) Monocytes % (Manual) Eosinophils % (Manual) Monocytes # (Manual) Eosinophils # (Manual) D-Dimer Heparin Anti-Xa Level ABG pH POC ABG pCO2 POC ABG pO2 ABG pO2 ABG HCO3 ABG O2 Saturation ABG Base Excess ABG Hemoglobin ABG Oxyhemoglobin VBG pH Oxyhemoglobin Sodium Potassium Chloride Carbon Dioxide BUN Creatinine Glucose POC Glucose 112 H 140 H Lactic Acid Calcium Ferritin AST Alkaline Phosphatase Magnesium Lactate Dehydrogenase Total Creatine Kinase CK-MB (CK-2) C-Reactive Protein Total Protein Albumin Troponin T HDL Cholesterol Urine WBC (Auto) Urine Creatinine Urine Total Protein Coronavirus (PCR) Positive A Crossmatch 06/30/20 06/30/20 06/30/20 04:10 04:10 06:09 WBC RBC 2.44 L Hgb 7.1 L Hct 21.5 L MCHC RDW 16.6 H Lymph % (Auto) 11.0 L [place] % (Auto) 10.8 H Eos % (Auto) Lymph # 0.9 L [place] # 0.9 H Seg Neutrophils % 73.7 H Seg Neuts % (Manual) Lymphocytes % (Manual) Seg Neutrophils # Seg Neutrophils # Man Lymphocytes # (Manual) Monocytes % (Manual) Eosinophils % (Manual) Monocytes # (Manual) Eosinophils # (Manual) D-Dimer Heparin Anti-Xa Level ABG pH POC ABG pCO2 POC ABG pO2 ABG pO2 ABG HCO3 ABG O2 Saturation ABG Base Excess ABG Hemoglobin ABG Oxyhemoglobin VBG pH Oxyhemoglobin Sodium Potassium Chloride 109.1 H Carbon Dioxide BUN 74 H Creatinine 1.3 H Glucose 191 H POC Glucose 187 H Lactic Acid Calcium 7.8 L Ferritin AST Alkaline Phosphatase Magnesium Lactate Dehydrogenase Total Creatine Kinase CK-MB (CK-2) C-Reactive Protein Total Protein Albumin Troponin T HDL Cholesterol Urine WBC (Auto) Urine Creatinine Urine Total Protein Coronavirus (PCR) Crossmatch 06/30/20 06/30/20 06/30/20 12:04 17:43 23:41 WBC RBC Hgb Hct MCHC RDW Lymph % (Auto) [place] % (Auto) Eos % (Auto) Lymph # [place] # Seg Neutrophils % Seg Neuts % (Manual) Lymphocytes % (Manual) Seg Neutrophils # Seg Neutrophils # Man Lymphocytes # (Manual) Monocytes % (Manual) Eosinophils % (Manual) Monocytes # (Manual) Eosinophils # (Manual) D-Dimer Heparin Anti-Xa Level ABG pH POC ABG pCO2 POC ABG pO2 ABG pO2 ABG HCO3 ABG O2 Saturation ABG Base Excess ABG Hemoglobin ABG Oxyhemoglobin VBG pH Oxyhemoglobin Sodium Potassium Chloride Carbon Dioxide BUN Creatinine Glucose POC Glucose 112 H 177 H 143 H Lactic Acid Calcium Ferritin AST Alkaline Phosphatase Magnesium Lactate Dehydrogenase Total Creatine Kinase CK-MB (CK-2) C-Reactive Protein Total Protein Albumin Troponin T HDL Cholesterol Urine WBC (Auto) Urine Creatinine Urine Total Protein Coronavirus (PCR) Crossmatch 07/01/20 07/01/20 07/01/20 05:02 05:52 06:01 WBC 12.6 H RBC 2.95 L Hgb 8.2 L Hct 26.0 L MCHC RDW 16.9 H Lymph % (Auto) [place] % (Auto) Eos % (Auto) Lymph # [place] # Seg Neutrophils % Seg Neuts % (Manual) Lymphocytes % (Manual) Seg Neutrophils # Seg Neutrophils # Man 8.6 H Lymphocytes # (Manual) Monocytes % (Manual) Eosinophils % (Manual) 5.0 H Monocytes # (Manual) Eosinophils # (Manual) 0.6 H D-Dimer Heparin Anti-Xa Level ABG pH POC ABG pCO2 POC ABG pO2 ABG pO2 ABG HCO3 ABG O2 Saturation ABG Base Excess ABG Hemoglobin 8.2 L ABG Oxyhemoglobin VBG pH Oxyhemoglobin Sodium Potassium Chloride Carbon Dioxide BUN Creatinine Glucose POC Glucose 129 H Lactic Acid Calcium Ferritin AST Alkaline Phosphatase Magnesium Lactate Dehydrogenase Total Creatine Kinase CK-MB (CK-2) C-Reactive Protein Total Protein Albumin Troponin T HDL Cholesterol Urine WBC (Auto) Urine Creatinine Urine Total Protein Coronavirus (PCR) Crossmatch 07/01/20 07/01/20 07/01/20 06:01 06:01 06:08 WBC RBC Hgb Hct MCHC RDW Lymph % (Auto) [place] % (Auto) Eos % (Auto) Lymph # [place] # Seg Neutrophils % Seg Neuts % (Manual) Lymphocytes % (Manual) Seg Neutrophils # Seg Neutrophils # Man Lymphocytes # (Manual) Monocytes % (Manual) Eosinophils % (Manual) Monocytes # (Manual) Eosinophils # (Manual) D-Dimer Heparin Anti-Xa Level ABG pH POC ABG pCO2 POC ABG pO2 ABG pO2 ABG HCO3 ABG O2 Saturation ABG Base Excess ABG Hemoglobin ABG Oxyhemoglobin VBG pH Oxyhemoglobin Sodium 147 H Potassium Chloride 108.0 H Carbon Dioxide BUN 71 H Creatinine 1.3 H Glucose 193 H POC Glucose 192 H Lactic Acid Calcium 8.1 L Ferritin AST Alkaline Phosphatase Magnesium Lactate Dehydrogenase Total Creatine Kinase 300 H CK-MB (CK-2) C-Reactive Protein Total Protein Albumin Troponin T 0.067 H HDL Cholesterol 61 H Urine WBC (Auto) Urine Creatinine Urine Total Protein Coronavirus (PCR) Crossmatch 07/01/20 07/01/20 07/02/20 12:23 17:40 00:18 WBC RBC Hgb Hct MCHC RDW Lymph % (Auto) [place] % (Auto) Eos % (Auto) Lymph # [place] # Seg Neutrophils % Seg Neuts % (Manual) Lymphocytes % (Manual) Seg Neutrophils # Seg Neutrophils # Man Lymphocytes # (Manual) Monocytes % (Manual) Eosinophils % (Manual) Monocytes # (Manual) Eosinophils # (Manual) D-Dimer Heparin Anti-Xa Level ABG pH POC ABG pCO2 POC ABG pO2 ABG pO2 ABG HCO3 ABG O2 Saturation ABG Base Excess ABG Hemoglobin ABG Oxyhemoglobin VBG pH Oxyhemoglobin Sodium Potassium Chloride Carbon Dioxide BUN Creatinine Glucose POC Glucose 111 H 135 H 145 H Lactic Acid Calcium Ferritin AST Alkaline Phosphatase Magnesium Lactate Dehydrogenase Total Creatine Kinase CK-MB (CK-2) C-Reactive Protein Total Protein Albumin Troponin T HDL Cholesterol Urine WBC (Auto) Urine Creatinine Urine Total Protein Coronavirus (PCR) Crossmatch 07/02/20 07/02/20 07/02/20 04:11 04:23 05:54 WBC RBC Hgb Hct MCHC RDW Lymph % (Auto) [place] % (Auto) Eos % (Auto) Lymph # [place] # Seg Neutrophils % Seg Neuts % (Manual) Lymphocytes % (Manual) Seg Neutrophils # Seg Neutrophils # Man Lymphocytes # (Manual) Monocytes % (Manual) Eosinophils % (Manual) Monocytes # (Manual) Eosinophils # (Manual) D-Dimer Heparin Anti-Xa Level ABG pH POC ABG pCO2 POC ABG pO2 ABG pO2 ABG HCO3 ABG O2 Saturation ABG Base Excess ABG Hemoglobin 5.4 L ABG Oxyhemoglobin VBG pH Oxyhemoglobin Sodium Potassium Chloride 108.6 H Carbon Dioxide BUN 72 H Creatinine Glucose 112 H POC Glucose 137 H Lactic Acid Calcium 7.8 L Ferritin AST Alkaline Phosphatase Magnesium Lactate Dehydrogenase Total Creatine Kinase CK-MB (CK-2) C-Reactive Protein Total Protein Albumin Troponin T HDL Cholesterol Urine WBC (Auto) Urine Creatinine Urine Total Protein Coronavirus (PCR) Crossmatch 07/02/20 07/02/20 07/02/20 11:38 18:04 23:59 WBC RBC Hgb Hct MCHC RDW Lymph % (Auto) [place] % (Auto) Eos % (Auto) Lymph # [place] # Seg Neutrophils % Seg Neuts % (Manual) Lymphocytes % (Manual) Seg Neutrophils # Seg Neutrophils # Man Lymphocytes # (Manual) Monocytes % (Manual) Eosinophils % (Manual) Monocytes # (Manual) Eosinophils # (Manual) D-Dimer Heparin Anti-Xa Level ABG pH POC ABG pCO2 POC ABG pO2 ABG pO2 ABG HCO3 ABG O2 Saturation ABG Base Excess ABG Hemoglobin ABG Oxyhemoglobin VBG pH Oxyhemoglobin Sodium Potassium Chloride Carbon Dioxide BUN Creatinine Glucose POC Glucose 128 H 135 H 156 H Lactic Acid Calcium Ferritin AST Alkaline Phosphatase Magnesium Lactate Dehydrogenase Total Creatine Kinase CK-MB (CK-2) C-Reactive Protein Total Protein Albumin Troponin T HDL Cholesterol Urine WBC (Auto) Urine Creatinine Urine Total Protein Coronavirus (PCR) Crossmatch 07/03/20 07/03/20 07/03/20 03:49 06:00 11:31 WBC RBC Hgb Hct MCHC RDW Lymph % (Auto) [place] % (Auto) Eos % (Auto) Lymph # [place] # Seg Neutrophils % Seg Neuts % (Manual) Lymphocytes % (Manual) Seg Neutrophils # Seg Neutrophils # Man Lymphocytes # (Manual) Monocytes % (Manual) Eosinophils % (Manual) Monocytes # (Manual) Eosinophils # (Manual) D-Dimer Heparin Anti-Xa Level ABG pH POC ABG pCO2 POC ABG pO2 ABG pO2 121.0 H ABG HCO3 ABG O2 Saturation ABG Base Excess ABG Hemoglobin 8.5 L ABG Oxyhemoglobin VBG pH Oxyhemoglobin Sodium Potassium Chloride Carbon Dioxide BUN Creatinine Glucose POC Glucose 135 H 141 H Lactic Acid Calcium Ferritin AST Alkaline Phosphatase Magnesium Lactate Dehydrogenase Total Creatine Kinase CK-MB (CK-2) C-Reactive Protein Total Protein Albumin Troponin T HDL Cholesterol Urine WBC (Auto) Urine Creatinine Urine Total Protein Coronavirus (PCR) Crossmatch 07/03/20 07/03/20 07/04/20 16:07 17:40 05:49 WBC RBC Hgb Hct MCHC RDW Lymph % (Auto) [place] % (Auto) Eos % (Auto) Lymph # [place] # Seg Neutrophils % Seg Neuts % (Manual) Lymphocytes % (Manual) Seg Neutrophils # Seg Neutrophils # Man Lymphocytes # (Manual) Monocytes % (Manual) Eosinophils % (Manual) Monocytes # (Manual) Eosinophils # (Manual) D-Dimer Heparin Anti-Xa Level ABG pH POC ABG pCO2 POC ABG pO2 ABG pO2 126.9 H ABG HCO3 ABG O2 Saturation ABG Base Excess ABG Hemoglobin 8.1 L ABG Oxyhemoglobin VBG pH Oxyhemoglobin Sodium Potassium Chloride Carbon Dioxide BUN Creatinine Glucose POC Glucose 120 H 128 H Lactic Acid Calcium Ferritin AST Alkaline Phosphatase Magnesium Lactate Dehydrogenase Total Creatine Kinase CK-MB (CK-2) C-Reactive Protein Total Protein Albumin Troponin T HDL Cholesterol Urine WBC (Auto) Urine Creatinine Urine Total Protein Coronavirus (PCR) Crossmatch 07/04/20 07/04/20 07/05/20 11:54 18:00 00:07 WBC RBC Hgb Hct MCHC RDW Lymph % (Auto) [place] % (Auto) Eos % (Auto) Lymph # [place] # Seg Neutrophils % Seg Neuts % (Manual) Lymphocytes % (Manual) Seg Neutrophils # Seg Neutrophils # Man Lymphocytes # (Manual) Monocytes % (Manual) Eosinophils % (Manual) Monocytes # (Manual) Eosinophils # (Manual) D-Dimer Heparin Anti-Xa Level ABG pH POC ABG pCO2 POC ABG pO2 ABG pO2 ABG HCO3 ABG O2 Saturation ABG Base Excess ABG Hemoglobin ABG Oxyhemoglobin VBG pH Oxyhemoglobin Sodium Potassium Chloride Carbon Dioxide BUN Creatinine Glucose POC Glucose 168 H 133 H 121 H Lactic Acid Calcium Ferritin AST Alkaline Phosphatase Magnesium Lactate Dehydrogenase Total Creatine Kinase CK-MB (CK-2) C-Reactive Protein Total Protein Albumin Troponin T HDL Cholesterol Urine WBC (Auto) Urine Creatinine Urine Total Protein Coronavirus (PCR) Crossmatch 07/05/20 07/05/20 07/05/20 01:12 02:30 12:09 WBC RBC 2.35 L Hgb 6.9 L Hct 21.1 L MCHC RDW 16.8 H Lymph % (Auto) [place] % (Auto) Eos % (Auto) Lymph # [place] # Seg Neutrophils % Seg Neuts % (Manual) 74.0 H Lymphocytes % (Manual) 12.0 L Seg Neutrophils # Seg Neutrophils # Man 8.0 H Lymphocytes # (Manual) Monocytes % (Manual) 9.0 H Eosinophils % (Manual) Monocytes # (Manual) 1.0 H Eosinophils # (Manual) D-Dimer Heparin Anti-Xa Level ABG pH POC ABG pCO2 POC ABG pO2 ABG pO2 ABG HCO3 ABG O2 Saturation ABG Base Excess ABG Hemoglobin ABG Oxyhemoglobin VBG pH Oxyhemoglobin Sodium Potassium Chloride Carbon Dioxide BUN Creatinine Glucose POC Glucose 132 H Lactic Acid Calcium Ferritin AST Alkaline Phosphatase Magnesium Lactate Dehydrogenase Total Creatine Kinase CK-MB (CK-2) C-Reactive Protein Total Protein Albumin Troponin T HDL Cholesterol Urine WBC (Auto) Urine Creatinine Urine Total Protein Coronavirus (PCR) Crossmatch See Detail 07/05/20 07/05/20 07/05/20 13:05 18:04 23:13 WBC RBC 2.57 L Hgb 7.7 L Hct 23.0 L MCHC RDW 16.9 H Lymph % (Auto) [place] % (Auto) Eos % (Auto) Lymph # [place] # Seg Neutrophils % Seg Neuts % (Manual) Lymphocytes % (Manual) Seg Neutrophils # Seg Neutrophils # Man Lymphocytes # (Manual) Monocytes % (Manual) Eosinophils % (Manual) Monocytes # (Manual) Eosinophils # (Manual) D-Dimer Heparin Anti-Xa Level ABG pH 7.32 L POC ABG pCO2 POC ABG pO2 ABG pO2 78.3 L ABG HCO3 ABG O2 Saturation ABG Base Excess -2.6 L ABG Hemoglobin 7.3 L ABG Oxyhemoglobin VBG pH Oxyhemoglobin Sodium Potassium Chloride Carbon Dioxide BUN Creatinine Glucose POC Glucose 160 H Lactic Acid Calcium Ferritin AST Alkaline Phosphatase Magnesium Lactate Dehydrogenase Total Creatine Kinase CK-MB (CK-2) C-Reactive Protein Total Protein Albumin Troponin T HDL Cholesterol Urine WBC (Auto) Urine Creatinine Urine Total Protein Coronavirus (PCR) Crossmatch 07/05/20 07/05/20 07/06/20 23:13 23:43 13:20 WBC RBC Hgb Hct MCHC RDW Lymph % (Auto) [place] % (Auto) Eos % (Auto) Lymph # [place] # Seg Neutrophils % Seg Neuts % (Manual) Lymphocytes % (Manual) Seg Neutrophils # Seg Neutrophils # Man Lymphocytes # (Manual) Monocytes % (Manual) Eosinophils % (Manual) Monocytes # (Manual) Eosinophils # (Manual) D-Dimer Heparin Anti-Xa Level ABG pH POC ABG pCO2 POC ABG pO2 ABG pO2 ABG HCO3 ABG O2 Saturation ABG Base Excess ABG Hemoglobin ABG Oxyhemoglobin VBG pH Oxyhemoglobin Sodium Potassium Chloride Carbon Dioxide 20 L BUN 80 H Creatinine 2.4 H D Glucose 124 H POC Glucose 121 H Lactic Acid Calcium 7.6 L Ferritin AST Alkaline Phosphatase Magnesium Lactate Dehydrogenase Total Creatine Kinase CK-MB (CK-2) C-Reactive Protein Total Protein Albumin Troponin T HDL Cholesterol Urine WBC (Auto) Urine Creatinine 33.3 H Urine Total Protein Coronavirus (PCR) Crossmatch 07/06/20 07/06/20 07/07/20 14:48 17:28 00:12 WBC RBC Hgb Hct MCHC RDW Lymph % (Auto) [place] % (Auto) Eos % (Auto) Lymph # [place] # Seg Neutrophils % Seg Neuts % (Manual) Lymphocytes % (Manual) Seg Neutrophils # Seg Neutrophils # Man Lymphocytes # (Manual) Monocytes % (Manual) Eosinophils % (Manual) Monocytes # (Manual) Eosinophils # (Manual) D-Dimer Heparin Anti-Xa Level ABG pH POC ABG pCO2 POC ABG pO2 ABG pO2 ABG HCO3 ABG O2 Saturation ABG Base Excess ABG Hemoglobin ABG Oxyhemoglobin VBG pH Oxyhemoglobin Sodium 136 L Potassium 5.5 H Chloride Carbon Dioxide 19 L BUN 82 H Creatinine 2.5 H Glucose 113 H POC Glucose 133 H 154 H Lactic Acid Calcium 7.7 L Ferritin AST Alkaline Phosphatase Magnesium Lactate Dehydrogenase Total Creatine Kinase CK-MB (CK-2) C-Reactive Protein Total Protein Albumin Troponin T HDL Cholesterol Urine WBC (Auto) Urine Creatinine Urine Total Protein Coronavirus (PCR) Crossmatch 07/07/20 07/07/20 07/07/20 04:15 04:15 05:31 WBC RBC 2.28 L Hgb 6.8 L Hct 20.7 L MCHC RDW 16.8 H Lymph % (Auto) [place] % (Auto) Eos % (Auto) Lymph # [place] # Seg Neutrophils % Seg Neuts % (Manual) Lymphocytes % (Manual) 13.0 L Seg Neutrophils # Seg Neutrophils # Man Lymphocytes # (Manual) 1.0 L Monocytes % (Manual) 11.0 H Eosinophils % (Manual) Monocytes # (Manual) 0.9 H Eosinophils # (Manual) D-Dimer Heparin Anti-Xa Level ABG pH POC ABG pCO2 POC ABG pO2 ABG pO2 ABG HCO3 ABG O2 Saturation ABG Base Excess ABG Hemoglobin ABG Oxyhemoglobin VBG pH Oxyhemoglobin Sodium Potassium Chloride Carbon Dioxide BUN Creatinine Glucose POC Glucose 135 H Lactic Acid Calcium Ferritin AST Alkaline Phosphatase Magnesium 2.50 H Lactate Dehydrogenase Total Creatine Kinase CK-MB (CK-2) C-Reactive Protein Total Protein Albumin Troponin T HDL Cholesterol Urine WBC (Auto) Urine Creatinine Urine Total Protein Coronavirus (PCR) Crossmatch Chest x-ray: pending Allied health notes reviewed: nursing
[2020-07-07] MEDS: GLYCOPYRROLATE 2 MG TAB PO SCH ×3 (09:41→19:29)
[2020-07-07] MEDS: amLODIPine 10 MG TAB PO SCH (09:41)
[2020-07-07] MEDS: MODAFINIL 100 MG TAB PO SCH (09:42)
[2020-07-07] MEDS: levETIRAcetam 500 MG/5 ML ORAL LIQD PO SCH ×2 (09:42→21:46)
[2020-07-07] MEDS: carvediloL 12.5 MG TAB PO SCH ×2 (09:42→21:46)
[2020-07-07] MEDS: cloNIDine 0.2 MG TAB PO SCH ×2 (09:42→21:46)
[2020-07-07] MEDS: LANSOPRAZOLE 30 MG SOLUTAB FEEDTUBE SCH ×2 (09:42→21:46)
[2020-07-07] MEDS: MAGIC MOUTHWASH 30ML PO SCH ×3 (09:42→19:29)
[2020-07-07] MEDS: SENNOSIDES ORAL LIQD 8.8 MG/5 ML ORAL LIQD FEEDTUBE SCH ×2 (09:43→21:44)
[2020-07-07] MEDS: SODIUM BICARBONATE 325 MG TAB FEEDTUBE PRN (10:36)
[2020-07-07] MEDS: LIPASE 10,500/PROTEASE 25,000/AMYLASE 43,750 (UNITS) DR CAP FEEDTUBE PRN (10:36)
--- NOTE | 2020-07-07 13:40 | Progress Note ---
Assessment and Plan Cultures: Coronavirus PCR 05/28/2020: Positive 05/28/2020 blood culture: no growth 05/28/2020 tracheal aspirate: Usual respiratory bobo 05/28/2020 urine culture: No growth 06/03/2020 urine culture: No growth 06/09/2020 tracheal aspirate Klebsiella pneumoniae 06/28/2020 sputum culture positive for Klebsiella 06/28/2020 blood cultures no growth today 06/29/2020 COV2 PCR positive A/P: 64-year-old female with hypertension, diastolic CHF, pulmonary hypertension, diabetes, obesity hypoventilation syndrome, recent COVID pneumonia, was admitted to the emergency room after she called EMS due to difficulty breathing. On the way to the hospital, patient developed cardiac arrest and was treated as per ACLS protocol: #Cardiac arrest on 07/01/2020 #Sepsis on 06/27/2020: Resolved. After asystolic cardiac arrest on 06/26/2028. #Bilateral pneumonia: Secondary to COVID-19. Completed 5 days of IV Remdesivir 06/02/2020. ? Healthcare associated pneumonia, repeat sputum Klebsiella. Chest x-ray worsening infiltrates. Completed abx. #Acute hypoxic respiratory failure: On mechanical ventilation. Minimal vent settings. #HF: EF 45-50% #Mild LFT elevation: likely from COVID-19. #Severe constipation: Status post manual disimpaction #Encephalopathy: ? Post cardiac arrest. Recs: -Completed cefepime 7 days on 07/03/2020. Continue off antibiotics -checked with microbiology lab, they are still awaiting response from the line installer repairer regarding SARS-CoV-2 PCR cycle threshold (Ct) values, which would be useful to determine infectivity from COVID-19 -poor prognosis Mallory Wright MD, FACP [facility] ([facility] C: [phone] O: [phone] F: [phone] Subjective Date of service: 07/07/20 Principal diagnosis: Ac hypoxemic resp failure; COVID-19; pneumonia; CHF; Pulm HTN; OHS; DM II Interval history: Remains intubated, on the vent. No fever. Vent settings are minimal. Objective - Exam Narrative Exam: Physical Exam (reviewed in chart due to PPE conservation) Constitutional: intubated, sedated, on the vent Head, Ears, Nose: normocephalic, atraumatic Eyes: limited due to PPE conservation strategy Neck: intubated Oral: intubated Cardiovascular: limited due to PPE conservation strategy Respiratory: limited due to PPE conservation strategy GI: limited due to PPE conservation strategy Musculoskeletal: limited due to PPE conservation strategy Skin: limited due to PPE conservation strategy Hem/Lymphatic: limited due to PPE conservation strategy Psych: no agitation Neurological: sedated, intubated, on the vent, exam limited - Constitutional Vitals: Vital Signs Temp Pulse Resp BP Pulse Ox 97.9 F 74 19 161/68 99 07/07/20 12:00 07/07/20 13:01 07/07/20 13:00 07/07/20 13:01 07/07/20 13:00 Temperature -Last 24 Hours Temperature 97.9 F Temperature 97.9 F Temperature 97.5 F Temperature 97.4 F Temperature 97.9 F Temperature 98.2 F Temperature 98.9 F Temperature 98.8 F Temperature 97.9 F Temperature 98.3 F - Labs CBC & Chem 7: 07/07/20 04:15 07/06/20 14:48 Labs: Abnormal lab results 07/05/20 07/06/20 07/06/20 Range/Units 02:30 13:20 14:48 RBC (3.65-5.03) M/mm3 Hgb (10.1-14.3) gm/dl Hct (30.3-42.9) % RDW (13.2-15.2) % Lymphocytes % (Manual) (13.4-35.0) % Monocytes % (Manual) (0.0-7.3) % Lymphocytes # (Manual) (1.2-5.4) K/mm3 Monocytes # (Manual) (0.0-0.8) K/mm3 Sodium 136 L (137-145) mmol/L Potassium 5.5 H (3.6-5.0) mmol/L Carbon Dioxide 19 L (22-30) mmol/L BUN 82 H (7-17) mg/dL Creatinine 2.5 H (0.6-1.2) mg/dL Glucose 113 H (65-100) mg/dL POC Glucose (70-105) Calcium 7.7 L (8.4-10.2) mg/dL Magnesium (1.7-2.3) mg/dL Urine Creatinine 33.3 H (0.1-20.0) mg/dL Crossmatch See Detail 07/06/20 07/07/20 07/07/20 Range/Units 17:28 00:12 04:15 RBC 2.28 L (3.65-5.03) M/mm3 Hgb 6.8 L (10.1-14.3) gm/dl Hct 20.7 L (30.3-42.9) % RDW 16.8 H (13.2-15.2) % Lymphocytes % (Manual) 13.0 L (13.4-35.0) % Monocytes % (Manual) 11.0 H (0.0-7.3) % Lymphocytes # (Manual) 1.0 L (1.2-5.4) K/mm3 Monocytes # (Manual) 0.9 H (0.0-0.8) K/mm3 Sodium (137-145) mmol/L Potassium (3.6-5.0) mmol/L Carbon Dioxide (22-30) mmol/L BUN (7-17) mg/dL Creatinine (0.6-1.2) mg/dL Glucose (65-100) mg/dL POC Glucose 133 H 154 H (70-105) Calcium (8.4-10.2) mg/dL Magnesium (1.7-2.3) mg/dL Urine Creatinine (0.1-20.0) mg/dL Crossmatch 07/07/20 07/07/20 07/07/20 Range/Units 04:15 05:31 12:31 RBC (3.65-5.03) M/mm3 Hgb (10.1-14.3) gm/dl Hct (30.3-42.9) % RDW (13.2-15.2) % Lymphocytes % (Manual) (13.4-35.0) % Monocytes % (Manual) (0.0-7.3) % Lymphocytes # (Manual) (1.2-5.4) K/mm3 Monocytes # (Manual) (0.0-0.8) K/mm3 Sodium (137-145) mmol/L Potassium (3.6-5.0) mmol/L Carbon Dioxide (22-30) mmol/L BUN (7-17) mg/dL Creatinine (0.6-1.2) mg/dL Glucose (65-100) mg/dL POC Glucose 135 H 131 H (70-105) Calcium (8.4-10.2) mg/dL Magnesium 2.50 H (1.7-2.3) mg/dL Urine Creatinine (0.1-20.0) mg/dL Crossmatch
[2020-07-07 14:01] LABS: Calcium 8.1 mg/dL (8.4-10.2)
--- NOTE | 2020-07-07 17:44 | Progress Note ---
Assessment and Plan Assessment and plan: --Hyperkalemia; Calcium chloride 1 g IV, Kayexalate 15 g x 1 dose Closely monitor electrolytes --Worsening renal function; creatinine 2.4-2.5-2.9 Vasomotor nephropathy, gentle hydration Avoid nephrotoxins, monitor renal function Reconsult nephrology --Rectal bleeding; Hb dropped from 8.2 -6.9-7.7-6.8 today, Transfused 1 unit PRBC Closely monitor H&H, GI following, no plans of endoscopy --Acute blood loss anemia; Received 2 units of PRBC transfusion, Hb improved from 6.9-7.7-6.8 Patient received 2 units of PRBC in the past, transfuse 1 additional unit today Closely monitor H&H -- Acute hypoxemic respiratory failure intubated on admission, extubated on 06/12/20 then placed on high flow o2 patient developed another respiratory arrest on 06/26 - reintubated CC following, consider trach and PEG if unable to wean -- s/p cardiac arrest 07/01/2020,s/p CPR per ACLS protocol, refer to code sheet Intubated on vent, full CODE STATUS s/p Cardiac arrest on admission and on 06/26 Cardiology team on board Conservative management as per cardiology --Febrile illness with sepsis persistently positive for COVID-19 and Klebsiella pneumoniae Continue empiric antibiotics - Continue cefepime 2 g IV every 8 hours for now, ID following, completed treatment for COVID-19 --COVID-19 positive since 05/28/2020 Completed treatment, ID following Repeat test 06/29 still positive --Superficial left cephalic vein DVT/elevated D-dimers[COVID 19] Patient is on heparin drip from 05/29/20 D-dimers improved [id number] s/p heparin drip, Discussed with ID, treated with Eliquis 5 mg twice a day for 1 week[per ID] stop date 06/26/2020 -- Acute metabolic encephalopathy, POA likely from sepsis and s/p cardiac arrest with possible anoxic injury -- Acute renal failure: likely ATN Resolved, avoid nephrotoxins --COVID-19 b/l PNA Completed remdesivir on 06/02 Completed dexamethasone - Last dose 06/07 ID recs appreciated. --Klebsiella pneumonia: Initially completed antibiotics with cefepime Repeat sputum culture still positive for Klebsiella, restarted antibiotic Completed second round of 5 days of cefepime on 07/04/2020 --CHF (congestive heart failure) Cardiology following. Ef 45% -- Coffee ground emesis -Stress ulcers Possible stress ulcers, On PPI H/H again dropped - transfuse GI evaluation -- Hypertension; moderate control Continue amlodipine, coreg, clonidine and hydralazine --Mild LFT elevation: likely from COVID-19. cont to monitor -- DVT prophylaxis Eliquis, SCD to bilateral lower extremities while in bed -- Advance care planning Patient is critically ill with multiple medical problems Poor prognosis, family updated and requesting full code The high probability of a clinically significant, sudden or life threatening deterioration of the [CVS, renal, respiratory, [employer]] system(s) required my full and direct attention, intervention and personal management. The aggregate critical care time was [33] minutes. This time is in addition to time spent performing reported procedures but includes the following: [x] Data Review and interpretation [x] Patient assessment and monitoring of vital signs [x] Documentation [x] Medication orders and management 06/27; Code blue called yesterday. ACLS initiated, Pt found to have Asystolic Arrest with eventual return of perfusing cardiac rhythm. patient reintubated during code, transferred to ICU, called family and updated 06/28: Patient is spiking fever, started on empiric antibiotic, ordered blood urine and sputum culture. We will reconsult ID. Discussed with patient's son in the evening. Family wants to continue full CODE STATUS. Discussed with critical care attending and RN in length. 06/29: Repeat COVID-19 test is positive. Patient remains on ventilator, continue tube feeding diet. Renal function stable, H&H stable. GI recommendation appreciated -no plan for endoscopy now as there is no active bleeding. 06/30: Renal function improving, patient remains positive for COVID. Tolerating tube feeding, wean off vent as tolerated. Patient remains with poor prognosis 07/05; patient has significant drop in H&H, hemoglobin today is 6.9, heme positive stool, type and cross transfuse 2 units of PRBC GI following, no plans of endoscopy 07/06; status post 2 units PRBC transfusion yesterday, Hb improved to 7.7. Monit or H&H transfuse additional PRBC as needed Remains intubated on vent, wean as tolerated and extubate 07/07; Hb dropped to 7.7-6.8, no new episodes of bleeding, transfuse additional 1 unit PRBC today Closely monitor H&H, worsening renal function, hyperkalemia, calcium chloride Kayexalate, gentle hydration, reconsult nephrology History Interval history: I have seen and examined the patient this morning at bedside in ICU Patient COVID positive , intubated on ventilatory support isolation precautions, PPE protocols strictly followed Patient had mild drop in H&H, will recommend transfuse 1 unit PRBC No new episodes of rectal bleeding Vital signs reviewed Hospitalist Physical - Constitutional Vitals: Temp Pulse Resp BP Pulse Ox 98.0 F 74 22 152/83 99 07/07/20 16:00 07/07/20 17:00 07/07/20 17:00 07/07/20 17:00 07/07/20 17:00 General appearance: Present: mild distress, well-nourished, obese (Morbidly obese), other (On high flow oxygen) - EENT Eyes: Present: PERRL, EOM intact - Neck Neck: Present: supple, normal ROM - Respiratory Respiratory effort: normal Respiratory: bilateral: diminished, rhonchi, negative: rales, wheezing - Cardiovascular Rhythm: regular Heart Sounds: Present: S1 & S2 - Extremities Extremities: no ischemia Extremity abnormal: edema - Abdominal General gastrointestinal: soft, non-tender, non-distended, normal bowel sounds - Integumentary Integumentary: Present: clear, warm - Psychiatric Psychiatric: other (Debated on vent) - Neurologic Neurologic: other (Intubated on vent) HEART Score - HEART Score Troponin: Troponin T 0.067 ng/mL (0.00-0.029) H 07/01/20 06:01 Results - Labs CBC & Chem 7: 07/07/20 04:15 07/07/20 13:22 Labs: Laboratory Last Values WBC 8.0 K/mm3 (4.5-11.0) 07/07/20 04:15 RBC 2.28 M/mm3 (3.65-5.03) L 07/07/20 04:15 Hgb 6.8 gm/dl (10.1-14.3) L 07/07/20 04:15 Hct 20.7 % (30.3-42.9) L 07/07/20 04:15 MCV 91 fl (79-97) 07/07/20 04:15 MCH 30 pg (28-32) 07/07/20 04:15 MCHC 33 % (30-34) 07/07/20 04:15 RDW 16.8 % (13.2-15.2) H 07/07/20 04:15 Plt Count 266 K/mm3 (140-440) 07/07/20 04:15 Lymph % (Auto) 11.0 % (13.4-35.0) L 06/30/20 04:10 [place] % (Auto) 10.8 % (0.0-7.3) H 06/30/20 04:10 Eos % (Auto) 3.9 % (0.0-4.3) 06/30/20 04:10 Baso % (Auto) 0.6 % (0.0-1.8) 06/30/20 04:10 Lymph # 0.9 K/mm3 (1.2-5.4) L 06/30/20 04:10 [place] # 0.9 K/mm3 (0.0-0.8) H 06/30/20 04:10 Eos # 0.3 K/mm3 (0.0-0.4) 06/30/20 04:10 Baso # 0.1 K/mm3 (0.0-0.1) 06/30/20 04:10 Seg Neutrophils % 73.7 % (40.0-70.0) H 06/30/20 04:10 Add Manual Diff Complete 07/07/20 04:15 Total Counted 100 07/07/20 04:15 Seg Neutrophils # 6.2 K/mm3 (1.8-7.7) 06/30/20 04:10 Seg Neuts % (Manual) 69.0 % (40.0-70.0) 07/07/20 04:15 Band Neutrophils % 0 % 07/07/20 04:15 Lymphocytes % (Manual) 13.0 % (13.4-35.0) L 07/07/20 04:15 Reactive Lymphs % (Man) 0 % 07/07/20 04:15 Monocytes % (Manual) 11.0 % (0.0-7.3) H 07/07/20 04:15 Eosinophils % (Manual) 2.0 % (0.0-4.3) 07/07/20 04:15 Basophils % (Manual) 1.0 % (0.0-1.8) 07/07/20 04:15 Metamyelocytes % 4.0 % 07/07/20 04:15 Myelocytes % 0 % 07/07/20 04:15 Promyelocytes % 0 % 07/07/20 04:15 Blast Cells % 0 % 07/07/20 04:15 Nucleated RBC % Not Reportable 07/07/20 04:15 Seg Neutrophils # Man 5.5 K/mm3 (1.8-7.7) 07/07/20 04:15 Band Neutrophils # 0.0 K/mm3 07/07/20 04:15 Lymphocytes # (Manual) 1.0 K/mm3 (1.2-5.4) L 07/07/20 04:15 Abs React Lymphs (Man) 0.0 K/mm3 07/07/20 04:15 Monocytes # (Manual) 0.9 K/mm3 (0.0-0.8) H 07/07/20 04:15 Eosinophils # (Manual) 0.2 K/mm3 (0.0-0.4) 07/07/20 04:15 Basophils # (Manual) 0.1 K/mm3 (0.0-0.1) 07/07/20 04:15 Metamyelocytes # 0.3 K/mm3 07/07/20 04:15 Myelocytes # 0.0 K/mm3 07/07/20 04:15 Promyelocytes # 0.0 K/mm3 07/07/20 04:15 Blast Cells # 0.0 K/mm3 07/07/20 04:15 WBC Morphology Not Reportable 07/07/20 04:15 Hypersegmented Neuts Not Reportable 07/07/20 04:15 Hyposegmented Neuts Not Reportable 07/07/20 04:15 Hypogranular Neuts Not Reportable 07/07/20 04:15 Smudge Cells Not Reportable 07/07/20 04:15 Toxic Granulation Not Reportable 07/07/20 04:15 Toxic Vacuolation Not Reportable 07/07/20 04:15 Dohle Bodies Not Reportable 07/07/20 04:15 Pelger-Huet Anomaly Not Reportable 07/07/20 04:15 Sanjuanita Rods Not Reportable 07/07/20 04:15 Platelet Estimate Consistent w auto 07/07/20 04:15 Clumped Platelets Not Reportable 07/07/20 04:15 Plt Clumps, EDTA Not Reportable 07/07/20 04:15 Large Platelets Not Reportable 07/07/20 04:15 Giant Platelets Not Reportable 07/07/20 04:15 Platelet Satelliting Not Reportable 07/07/20 04:15 Plt Morphology Comment Not Reportable 07/07/20 04:15 RBC Morphology Not Reportable 07/07/20 04:15 Dimorphic RBCs Not Reportable 07/07/20 04:15 Polychromasia Not Reportable 07/07/20 04:15 Hypochromasia Not Reportable 07/07/20 04:15 Poikilocytosis Not Reportable 07/07/20 04:15 Anisocytosis Few 07/07/20 04:15 Microcytosis Not Reportable 07/07/20 04:15 Macrocytosis Not Reportable 07/07/20 04:15 Spherocytes Rare 07/07/20 04:15 Pappenheimer Bodies Not Reportable 07/07/20 04:15 Sickle Cells Not Reportable 07/07/20 04:15 Target Cells Not Reportable 07/07/20 04:15 Tear Drop Cells Not Reportable 07/07/20 04:15 Ovalocytes Few 07/07/20 04:15 Helmet Cells Not Reportable 07/07/20 04:15 Jones-Willey Bodies Not Reportable 07/07/20 04:15 Roscoe Rings Not Reportable 07/07/20 04:15 Gilmer Cells Rare 07/07/20 04:15 Bite Cells Not Reportable 07/07/20 04:15 Crenated Cell Not Reportable 07/07/20 04:15 Elliptocytes Not Reportable 07/07/20 04:15 Acanthocytes (Spur) Rare 07/07/20 04:15 Rouleaux Not Reportable 07/07/20 04:15 Hemoglobin C Crystals Not Reportable 07/07/20 04:15 Schistocytes Not Reportable 07/07/20 04:15 Malaria parasites Not Reportable 07/07/20 04:15 Kev Bodies Not Reportable 07/07/20 04:15 Hem Pathologist Commnt No 07/07/20 04:15 PT 14.2 Sec. (12.2-14.9) 05/29/20 15:10 INR 1.08 (0.87-1.13) 05/29/20 15:10 APTT 27.2 Sec. (24.2-36.6) 05/29/20 15:10 D-Dimer 2310.15 ng/mlDDU (0-234) H 06/29/20 14:45 Heparin Anti-Xa Level 0.34 U.I./ml (0.3-0.7) 06/19/20 10:46 ABG pH 7.32 pH Units (7.350-7.450) L 07/05/20 13:05 POC ABG pCO2 35.8 mmHg (32.0-48.0) 07/01/20 05:02 ABG pCO2 47.0 mm Hg 07/05/20 13:05 ABG Oxyhemoglobin 92.6 (94-98) L 06/23/20 12:34 POC ABG pO2 90.8 mmHg (83-108) 07/01/20 05:02 ABG pO2 78.3 mm Hg (80.0-90.0) L 07/05/20 13:05 POC ABG HCO3 22.1 07/01/20 05:02 ABG HCO3 23.4 mmol/L (20.0-26.0) 07/05/20 13:05 ABG O2 Saturation 96.1 % (95.0-99.0) 07/05/20 13:05 ABG O2 Content 0.3 (0.0-44) 07/05/20 13:05 POC ABG Base Excess -2.3 07/01/20 05:02 ABG Base Excess -2.6 mmol/L (-2.0-3.0) L 07/05/20 13:05 ABG Hemoglobin 7.3 gm/dl (12.0-16.0) L 07/05/20 13:05 ABG Carboxyhemoglobin 1.7 % (0.0-5.0) 07/05/20 13:05 ABG Methemoglobin 0.2 % (0.0-1.5) 07/05/20 13:05 VBG pH 7.152 (7.320-7.420) L* 05/28/20 13:47 Carboxyhemoglobin 0.5 (0.5-1.5) 06/23/20 12:34 Oxyhemoglobin 97.4 % (95.0-99.0) 07/05/20 13:05 FiO2 30 % 07/05/20 13:05 Sodium 138 mmol/L (137-145) 07/07/20 13:22 Potassium 5.6 mmol/L (3.6-5.0) H 07/07/20 13:22 Chloride 104.2 mmol/L (98-107) 07/07/20 13:22 Carbon Dioxide 22 mmol/L (22-30) 07/07/20 13:22 Anion Gap 17 mmol/L 07/07/20 13:22 BUN 86 mg/dL (7-17) H 07/07/20 13:22 Creatinine 2.9 mg/dL (0.6-1.2) H 07/07/20 13:22 Estimated GFR 16 ml/min 07/07/20 13:22 BUN/Creatinine Ratio 30 % 07/07/20 13:22 Glucose 127 mg/dL (65-100) H 07/07/20 13:22 POC Glucose 131 (70-105) H 07/07/20 12:31 Lactic Acid 0.60 mmol/L (0.7-2.0) L 06/27/20 05:00 Calcium 8.1 mg/dL (8.4-10.2) L 07/07/20 13:22 Ferritin 223.6 ng/mL (10.0-200.0) H 06/29/20 14:45 Total Bilirubin 0.20 mg/dL (0.1-1.2) 06/28/20 09:47 AST 24 units/L (5-40) 06/28/20 09:47 ALT 21 units/L (7-56) 06/28/20 09:47 Alkaline Phosphatase 113 units/L (35-129) 06/28/20 09:47 Magnesium 2.50 mg/dL (1.7-2.3) H 07/07/20 04:15 Lactate Dehydrogenase 367 units/L (91-180) H 06/29/20 14:45 C-Reactive Protein 3.60 mg/dL (0.00-1.30) H 06/29/20 14:45 Total Protein 5.0 g/dL (6.3-8.2) L 06/28/20 09:47 Albumin 2.1 g/dL (3.9-5) L 06/28/20 09:47 Albumin/Globulin Ratio 0.7 % 06/28/20 09:47 Total Creatine Kinase 300 units/L (30-135) H 07/01/20 06:01 CK-MB (CK-2) 2.0 ng/mL (0.0-4.0) 07/01/20 06:01 CK-MB (CK-2) Rel Index 0.6 (0-4) 07/01/20 06:01 Troponin T 0.067 ng/mL (0.00-0.029) H 07/01/20 06:01 Triglycerides 142 mg/dL (2-149) 07/01/20 06:01 Cholesterol 137 mg/dL (50-199) 07/01/20 06:01 LDL Cholesterol Direct 62 mg/dL (50-130) 07/01/20 06:01 HDL Cholesterol 61 mg/dL (40-59) H 07/01/20 06:01 Cholesterol/HDL Ratio 2.24 % 07/01/20 06:01 Procalcitonin 2.45 ng/mL (<0.15) 06/29/20 14:45 Urine Color Yellow (Yellow) 06/06/20 04:00 Urine Turbidity Cloudy (Clear) 06/06/20 04:00 Urine pH 5.0 (5.0-7.0) 06/06/20 04:00 Ur Specific [place] 1.012 (1.003-1.030) 06/06/20 04:00 Urine Protein 100 mg/dl mg/dL (Negative) 06/06/20 04:00 Urine Glucose (UA) 50 mg/dL (Negative) 06/06/20 04:00 Urine Ketones Neg mg/dL (Negative) 06/06/20 04:00 Urine Blood Sm (Negative) 06/06/20 04:00 Urine Nitrite Neg (Negative) 06/06/20 04:00 Urine Bilirubin Neg (Negative) 06/06/20 04:00 Urine Urobilinogen < 2.0 mg/dL (<2.0) 06/06/20 04:00 Ur Leukocyte Esterase Neg (Negative) 06/06/20 04:00 Urine WBC (Auto) 15.0 /HPF (0.0-6.0) H 06/06/20 04:00 Urine RBC (Auto) 23.0 /HPF (0.0-6.0) 06/06/20 04:00 U Epithel Cells (Auto) 8.0 /HPF (0-13.0) 06/06/20 04:00 Urine Bacteria (Auto) 2+ /HPF (Negative) 06/06/20 04:00 Amorphous Crystals 1+ 06/06/20 04:00 Hyaline Casts 16 /LPF 06/06/20 04:00 Urine Mucus 2+ /HPF 06/06/20 04:00 Urine Yeast (Budding) 2+ /HPF 06/03/20 Unknown Urine Creatinine 33.3 mg/dL (0.1-20.0) H 07/06/20 13:20 Urine Sodium 21 mmol/L 07/06/20 13:20 Urine Total Protein 196 mg/dL (5-11.8) H 06/06/20 04:00 Nasal Screen MRSA (PCR) Negative (Negative) 06/29/20 08:30 Coronavirus (PCR) Positive (Negative) A 06/29/20 Unknown Blood Type A POSITIVE 07/05/20 02:30 Antibody Screen Negative 07/05/20 02:30 Crossmatch See Detail 07/05/20 02:30 - Diagnostic Impressions Diagnostic Impressions: Echocardiogram Limited Views 05/29/20 13:52 Transthoracic Echocardiogram Indication: Pulm Embolus BP: 169/76 HR: 85 Conclusions *Limited study for RV size post cardiopulmonar arrest. *RV is only slightly dilated, no significant difference from prior echo 05/13/2020. *Global left ventricular systolic function is at the lower limits of normal. *The estimated ejection fraction is 45-50%. *Mild to moderate concentric left ventricular hypertrophy is observed. *The left and right atria are both mild to moderately dilated. Findings Left Ventricle: The left ventricular chamber size is mildly dilated. Mild to moderate concentric left ventricular hypertrophy is observed. Global left ventricular systolic function is at the lower limits of normal. The estimated ejection fraction is 45-50%. Left Atrium: The left atrium is mild to moderately dilated. Right Ventricle: The right ventricle is slightly dilated. Right Atrium: The right atrium is mild to moderately dilated. Aortic Valve: The aortic valve leaflets are moderately thickened. Mitral Valve: There is mitral annular calcification. The mitral valve leaflets are moderately thickened. Tricuspid Valve: The tricuspid valve leaflets are mildly thickened. Pericardium: A trivial pericardial effusion is visualized. NDUM: 05/29/20 1808 Amended Report Transthoracic Echocardiogram Indication: Pulm Embolus BP: 169/76 HR: 85 Conclusions *Limited study for RV size post cardiopulmonary arrest. *RV is only slightly dilated, no significant difference from prior echo 05/13/2020. *Global left ventricular systolic function is at the lower limits of normal. *The estimated ejection fraction is 45-50%. *Mild to moderate concentric left ventricular hypertrophy is observed. *The left and right atria are both mild to moderately dilated. Findings Left Ventricle: The left ventricular chamber size is mildly dilated. Mild to moderate concentric left ventricular hypertrophy is observed. Global left ventricular systolic function is at the lower limits of normal. The estimated ejection fraction is 45-50%. Left Atrium: The left atrium is mild to moderately dilated. Right Ventricle: The right ventricle is slightly dilated. Right Atrium: The right atrium is mild to moderately dilated. Aortic Valve: The aortic valve leaflets are moderately thickened. Mitral Valve: There is mitral annular calcification. The mitral valve leaflets are moderately thickened. Tricuspid Valve: The tricuspid valve leaflets are mildly thickened. Pericardium: A trivial pericardial effusion is visualized. Helm/IV: Voiding Method Indwelling Catheter IV Catheter Type [Left Wrist] INT / Saline Lock IV Catheter Type [Left Upper Mid-line arm] IV Catheter Type [Right CVL Internal Jugular] IV Catheter Type [Right Hand] INT / Saline Lock IV Catheter Type [Right Wrist] Not found on patient IV Catheter Type [Left Hand] INT / Saline Lock IV Catheter Type [Left INT / Saline Lock Antecubital] IV Catheter Type [Right Peripheral IV Forearm] IV Catheter Type [Left Leg] Intra-osseous Active Medications - Current Medications Current Medications: Generic Name Dose Route Start Last Admin Trade Name Freq PRN Reason Stop Dose Admin Acetaminophen 650 mg 06/09/20 10:57 06/29/20 21:18 Tylenol FEEDTUBE 650 mg Q6H PRN Administration Fever >101 Amlodipine Besylate 10 mg 06/02/20 11:00 07/07/20 09:41 Amlodipine PO 10 mg DAILY NELSON Administration Lipase/Protease/Amylase 1 each 05/29/20 13:39 07/07/20 10:[address] 10,500 Unit FEEDTUBE 1 each PRN PRN Administration For Clogged Feeding Tube Carvedilol 12.5 mg 06/03/20 10:00 07/07/20 09:42 Coreg PO 12.5 mg BID NELSON Administration Clonidine HCl 0.2 mg 06/23/20 22:00 07/07/20 09:42 Catapres PO 0.2 mg Q12HR NELSON Administration Glycopyrrolate 2 mg 06/09/20 14:00 07/07/20 13:01 Glycopyrrolate PO 2 mg TID NELSON Administration Heparin Sodium (Porcine) 5,000 unit 06/30/20 14:00 07/07/20 13:01 Heparin SUB-Q 5,000 unit Q8HR NELSON Administration Hydralazine HCl 50 mg 06/03/20 09:00 07/07/20 13:01 Apresoline PO 50 mg Q8HR NELSON Administration Hydrophilic Ointment 1 applic 05/28/20 13:49 Vaseline Lip Therapy TP Q2HR PRN Dry Lips Vasopressin 20 unit/ Sodium 101 mls @ 9.09 mls/hr 06/26/20 19:00 06/26/20 19:30 Chloride IV 0 units/min TITR NELSON 0 mls/hr Titration Protocol 0.03 UNITS/MIN Norepinephrine 4 mg in 250 mls @ 7.5 mls/hr 06/26/20 19:00 06/26/20 20:06 Levophed Drip 4 Mg/Ns 250 Ml IV 0 mcg/min TITR NELSON 0 mls/hr Titration Protocol 2 MCG/MIN Phenylephrine HCl 100 mg/ 100 mls @ 3 mls/hr 06/26/20 18:15 Sodium Chloride IV TITR NELSON Protocol 50 MCG/MIN Sodium Chloride 500 mls @ 5 mls/hr 06/30/20 22:00 06/30/20 21:42 Nacl 0.9% 500 Ml IV 5 mls/hr DIRECT NELSON Administration Insulin Glargine 10 units 06/08/20 22:00 07/06/20 21:51 Lantus SUB-Q 10 units QHS NELSON Administration Insulin Human Lispro 0 unit 05/29/20 18:00 07/07/20 13:11 Humalog SUB-Q Not Given Q6H NELSON Protocol Labetalol HCl 20 mg 06/03/20 09:00 07/07/20 15:37 Labetalol IV 20 mg Q4H PRN Administration HYPERTENSION Lansoprazole 30 mg 06/05/20 22:00 07/07/20 09:42 Prevacid Solutab FEEDTUBE 30 mg BID NELSON Administration Levetiracetam 500 mg 06/16/20 11:00 07/07/20 09:42 Keppra PO 500 mg BID NELSON Administration Lidocaine HCl 15 ml 06/26/20 20:00 07/07/20 13:01 Magic Mouthwash PO 15 ml TID NELSON Administration Metoclopramide HCl 10 mg 06/10/20 20:00 07/07/20 13:01 Reglan IV 10 mg Q6H NELSON Administration Modafinil 100 mg 07/02/20 20:00 07/07/20 09:42 Provigil PO 100 mg DAILY NELSON Administration Multi-Ingred Cream/Lotion/Oil/Oint 1 applic 05/28/20 13:49 Artificial Tears Ophth Oint OU Q4HR PRN Dry Eye(s) Ondansetron HCl 4 mg 06/02/20 09:00 06/09/20 16:48 Zofran IV 4 mg Q8H PRN Administration Nausea And Vomiting Senna 17.6 mg 06/03/20 10:00 07/07/20 09:43 Senokot FEEDTUBE Not Given BID NELSON Simple Syrup 15 ml 05/29/20 13:39 Simple Syrup FEEDTUBE PRN PRN Hypoglycemia Simple Syrup 30 ml 05/29/20 13:39 Simple Syrup FEEDTUBE PRN PRN Hypoglycemia Sodium Bicarbonate 325 mg 05/29/20 13:39 07/07/20 10:36 Sodium Bicarbonate FEEDTUBE 325 mg PRN PRN Administration For Clogged Feeding Tube Sodium Chloride 10 ml 05/28/20 22:00 07/07/20 09:43 Sodium Chloride Flush Syringe 10 Ml IV 10 ml BID NELSON Administration Sodium Chloride 10 ml 05/28/20 19:08 06/16/20 17:50 Sodium Chloride Flush Syringe 10 Ml IV 10 ml PRN PRN Administration LINE FLUSH Nutrition/Malnutrition Assess - Dietary Evaluation Nutrition/Malnutrition Findings: Nutrition Notes Start: 05/29/20 11:45 Freq: Status: Active Protocol: Document 07/06/20 12:04 ALFRED (Rec: 07/06/20 12:09 MK [id number]) Co-Sign 07/06/20 12:04 LP Nutrition Notes Initial or Follow up Reassessment Current Diagnosis Acute Kidney Injury,Diabetes, Heart Failure,Respiratory Failure Other Pertinent Diagnosis COVID-19 (+) Current Diet Glucerna 1.2 at 55ml/hr Labs/Tests Reviewed Pertinent Medications Reglan Height 5 ft 6 in Weight 123 kg [place] Body Weight (kg) 59.09 BMI 43.7 Weight Status Morbidly Obese Subjective/Other Information FU for TF tolerance. Per RN pt tolerating TF today. Per chart pt aspirated 200 ml yesterday. Percent of energy/protein needs met: 99%/53% Burn Absent Trauma Absent Current % PO Negligible Minimum of two criteria No physical signs of malnutrition Fluid Accumulation Mild (non-severe) #1 Nutrition Diagnosis Inadequate oral intake Diagnosis Progress(for reassessment Continues documentation) Is patient on ventilator? Yes Is Patient Ambulatory and/or Out of Bed No REE-([facility]-confined to bed) 2172.576 Kcal/Kg value to use for calculation 13 Approximate Energy Requirements Using 1599 kcal/Kg Calculation Used for Recommendations Kcal/kg Additional Notes Protein needs up to 148g (up to 2.5g/kg IBW) Fluid needs 1ml/kcal Nutrition Intervention Change Diet Order: Continue Nutrition Support: Glucerna 1.2 at 55ml/hr Flush 100ml q4h Kcal 1,584 Protein (gm) 79 Fluid (mL) 1,062 Goal #1 TF tolerance Goal #2 TF to meet at least 65%-70% energy and 80% protein needs Anticipated Discharge Needs: Unable to determine at this time Follow-Up By: 07/09/20 Additional Comments FU for TF tolerance
[2020-07-07] MEDS ORDERED: CALCIUM CHLORIDE 1,000 MG in SODIUM CHLORIDE 0.9% 100 ML IV ONE (17:45)
[2020-07-07] MEDS ORDERED: SODIUM POLYSTYRENE 15 GM/60 ML ORAL LIQD PO ONE (17:46)
[2020-07-07] MEDS: INSULIN GLARGINE 100 UNITS/ML SUB-Q SCH (21:48)
[2020-07-08] MEDS: INSULIN LISPRO 100 UNIT/ML VIAL 3 mL SUB-Q SCH ×4 (01:19→18:09)
[2020-07-08] MEDS: METOCLOPRAMIDE 10 MG/2 ML INJ IV SCH ×2 (01:21→08:54)
[2020-07-08 04:35] LABS: Hematocrit 28.9 % (30.3-42.9); Hemoglobin 9.7 gm/dl (10.1-14.3); Mean Corpuscular HGB Conc 34 % (30-34); Mean Corpuscular Volume 88 fl (79-97); Platelet Count 344 K/mm3 (140-440); Red Blood Count 3.28 M/mm3 (3.65-5.03); Red Cell Distribution Width 16.4 % (13.2-15.2)
[2020-07-08 04:52] LABS: Basophils # (Auto) 0.1 K/mm3 (0.0-0.1); Basophils % (Auto) 0.5 % (0.0-1.8); Eosinophils # (Auto) 0.2 K/mm3 (0.0-0.4); Lymphocytes # (Auto) 1.1 K/mm3 (1.2-5.4); Lymphocytes % (Auto) 10.3 % (13.4-35.0); Monocytes # (Auto) 1.1 K/mm3 (0.0-0.8)
[2020-07-08 04:56] LABS: Calcium 8.1 mg/dL (8.4-10.2)
[2020-07-08] MEDS: hydrALAZINE 25 MG TAB PO SCH ×4 (06:00→21:24)
[2020-07-08] MEDS: HEPARIN 5,000 UNIT/1 ML VIAL SUB-Q SCH ×3 (06:00→21:24)
[2020-07-08] MEDS: MODAFINIL 100 MG TAB PO SCH (09:12)
[2020-07-08] MEDS: LANSOPRAZOLE 30 MG SOLUTAB FEEDTUBE SCH ×2 (09:12→21:24)
[2020-07-08] MEDS: levETIRAcetam 500 MG/5 ML ORAL LIQD PO SCH ×2 (09:12→21:20)
[2020-07-08] MEDS: carvediloL 12.5 MG TAB PO SCH ×2 (09:12→21:23)
[2020-07-08] MEDS: cloNIDine 0.2 MG TAB PO SCH ×2 (09:12→21:22)
[2020-07-08] MEDS: GLYCOPYRROLATE 2 MG TAB PO SCH ×3 (09:12→21:22)
[2020-07-08] MEDS: SENNOSIDES ORAL LIQD 8.8 MG/5 ML ORAL LIQD FEEDTUBE SCH ×2 (09:13→21:20)
[2020-07-08] MEDS: amLODIPine 10 MG TAB PO SCH (09:13)
[2020-07-08] MEDS: MAGIC MOUTHWASH 30ML PO SCH ×3 (09:13→23:50)
--- NOTE | 2020-07-08 09:44 | Progress Note ---
Assessment and Plan Assessment and plan: -- Acute hypoxemic respiratory failure intubated on admission, extubated on 06/12/20 then placed on high flow o2 patient developed another respiratory arrest on 06/26 - reintubated Patient not tolerating weaning parameters CC following, may need trach and PEG if unable to wean --Hyperkalemia; resolved Monitor electrolytes -- Hypertension; uncontrolled Increase hydralazine dose to 75 mg 3 times a day Continue amlodipine, coreg, clonidine and hydralazine --Worsening renal function; creatinine 2.4-2.5-2.9 Vasomotor nephropathy, gentle hydration Avoid nephrotoxins, monitor renal function Reconsult nephrology --Rectal bleeding; Hb dropped from 8.2 -6.9-7.7-6.8 today, Transfused 1 unit PRBC Closely monitor H&H, GI following, no plans of endoscopy --Acute blood loss anemia; Received 2 units of PRBC transfusion, Hb improved from 6.9-7.7-6.8 Patient received 2 units of PRBC in the past, transfuse 1 additional unit today Closely monitor H&H -- s/p cardiac arrest 07/01/2020,s/p CPR per ACLS protocol, refer to code sheet Intubated on vent, full CODE STATUS s/p Cardiac arrest on admission and on 06/26 Cardiology team on board Conservative management as per cardiology --Febrile illness with sepsis persistently positive for COVID-19 and Klebsiella pneumoniae Continue empiric antibiotics - Continue cefepime 2 g IV every 8 hours for now, ID following, completed treatment for COVID-19 --COVID-19 positive since 05/28/2020 Completed treatment, ID following Repeat test 06/29 still positive --Superficial left cephalic vein DVT/elevated D-dimers[COVID 19] Patient is on heparin drip from 05/29/20 D-dimers improved [phone] s/p heparin drip, Discussed with ID, treated with Eliquis 5 mg twice a day for 1 week[per ID] stop date 06/26/2020 -- Acute metabolic encephalopathy, POA likely from sepsis and s/p cardiac arrest with possible anoxic injury -- Acute renal failure: likely ATN Resolved, avoid nephrotoxins --COVID-19 b/l PNA Completed remdesivir on 06/02 Completed dexamethasone - Last dose 06/07 ID recs appreciated. --Klebsiella pneumonia: Initially completed antibiotics with cefepime Repeat sputum culture still positive for Klebsiella, restarted antibiotic Completed second round of 5 days of cefepime on 07/04/2020 --CHF (congestive heart failure) Cardiology following. Ef 45% -- Coffee ground emesis -Stress ulcers Possible stress ulcers, On PPI H/H again dropped - transfuse GI evaluated --Mild LFT elevation: likely from COVID-19. cont to monitor -- DVT prophylaxis Eliquis, SCD to bilateral lower extremities while in bed -- Advance care planning Patient is critically ill with multiple medical problems Poor prognosis, family updated and requesting full code The high probability of a clinically significant, sudden or life threatening deterioration of the [CVS, renal, respiratory, COORDINATE MEASURING MACHINE OPERATOR] system(s) required my full and direct attention, intervention and personal management. The aggregate critical care time was [33] minutes. This time is in addition to time spent performing reported procedures but includes the following: [x] Data Review and interpretation [x] Patient assessment and monitoring of vital signs [x] Documentation [x] Medication orders and management 06/27; Code blue called yesterday. ACLS initiated, Pt found to have Asystolic Arrest with eventual return of perfusing cardiac rhythm. patient reintubated during code, transferred to ICU, called family and updated 06/28: Patient is spiking fever, started on empiric antibiotic, ordered blood urine and sputum culture. We will reconsult ID. Discussed with patient's son in the evening. Family wants to continue full CODE STATUS. Discussed with critical care attending and RN in length. 06/29: Repeat COVID-19 test is positive. Patient remains on ventilator, continue tube feeding diet. Renal function stable, H&H stable. GI recommendation appreciated -no plan for endoscopy now as there is no active bleeding. 06/30: Renal function improving, patient remains positive for COVID. Tolerating tube feeding, wean off vent as tolerated. Patient remains with poor prognosis 07/05; patient has significant drop in H&H, hemoglobin today is 6.9, heme positive stool, type and cross transfuse 2 units of PRBC GI following, no plans of endoscopy 07/06; status post 2 units PRBC transfusion yesterday, Hb improved to 7.7. Monitor H&H transfuse additional PRBC as needed Remains intubated on vent, wean as tolerated and extubate 07/07; Hb dropped to 7.7-6.8, no new episodes of bleeding, transfuse additional 1 unit PRBC today Closely monitor H&H, worsening renal function, hyperkalemia, calcium chloride Kayexalate, gentle hydration, reconsult nephrology 07/08: Patient not tolerating weaning parameters, if unable to wean may need trach and PEG, patient critically ill poor prognosis History Interval history: COVID positive patient I have seen and examined the patient and ICU at the bedside isolation precautions and PPE protocols strictly followed Patient remains intubated on vent Not able to tolerate weaning parameters Vital signs noted Hospitalist Physical - Constitutional Vitals: Temp Pulse Resp BP Pulse Ox 97.8 F 70 16 167/66 100 07/08/20 08:00 07/08/20 09:15 07/08/20 09:15 07/08/20 09:15 07/08/20 09:15 General appearance: Present: mild distress, well-nourished, obese (Morbidly obese), other (On high flow oxygen) - EENT Eyes: Present: PERRL, EOM intact - Neck Neck: Present: supple, normal ROM, other (ET tube and Dobbhoff in place) - Respiratory Respiratory effort: normal Respiratory: bilateral: diminished, rhonchi, negative: rales, wheezing - Cardiovascular Rhythm: regular Heart Sounds: Present: S1 & S2 - Extremities Extremities: no ischemia Extremity abnormal: edema - Abdominal General gastrointestinal: soft, non-tender, non-distended, normal bowel sounds - Integumentary Integumentary: Present: clear, warm - Psychiatric Psychiatric: other (Intubated on vent) - Neurologic Neurologic: other (Intubated on vent) HEART Score - HEART Score Troponin: Troponin T 0.067 ng/mL (0.00-0.029) H 07/01/20 06:01 Results - Labs CBC & Chem 7: 07/08/20 04:14 07/08/20 04:14 Labs: Laboratory Last Values WBC 10.7 K/mm3 (4.5-11.0) 07/08/20 04:14 RBC 3.28 M/mm3 (3.65-5.03) L 07/08/20 04:14 Hgb 9.7 gm/dl (10.1-14.3) L 07/08/20 04:14 Hct 28.9 % (30.3-42.9) L D 07/08/20 04:14 MCV 88 fl (79-97) 07/08/20 04:14 MCH 29 pg (28-32) 07/08/20 04:14 MCHC 34 % (30-34) 07/08/20 04:14 RDW 16.4 % (13.2-15.2) H 07/08/20 04:14 Plt Count 344 K/mm3 (140-440) 07/08/20 04:14 Lymph % (Auto) 10.3 % (13.4-35.0) L 07/08/20 04:14 [place] % (Auto) 10.0 % (0.0-7.3) H 07/08/20 04:14 Eos % (Auto) 2.0 % (0.0-4.3) 07/08/20 04:14 Baso % (Auto) 0.5 % (0.0-1.8) 07/08/20 04:14 Lymph # (Auto) 1.1 K/mm3 (1.2-5.4) L 07/08/20 04:14 [place] # (Auto) 1.1 K/mm3 (0.0-0.8) H 07/08/20 04:14 Eos # (Auto) 0.2 K/mm3 (0.0-0.4) 07/08/20 04:14 Baso # (Auto) 0.1 K/mm3 (0.0-0.1) 07/08/20 04:14 Add Manual Diff Complete 07/07/20 04:15 Total Counted 100 07/07/20 04:15 Seg Neutrophils % 77.2 % (40.0-70.0) H 07/08/20 04:14 Seg Neuts % (Manual) 69.0 % (40.0-70.0) 07/07/20 04:15 Band Neutrophils % 0 % 07/07/20 04:15 Lymphocytes % (Manual) 13.0 % (13.4-35.0) L 07/07/20 04:15 Reactive Lymphs % (Man) 0 % 07/07/20 04:15 Monocytes % (Manual) 11.0 % (0.0-7.3) H 07/07/20 04:15 Eosinophils % (Manual) 2.0 % (0.0-4.3) 07/07/20 04:15 Basophils % (Manual) 1.0 % (0.0-1.8) 07/07/20 04:15 Metamyelocytes % 4.0 % 07/07/20 04:15 Myelocytes % 0 % 07/07/20 04:15 Promyelocytes % 0 % 07/07/20 04:15 Blast Cells % 0 % 07/07/20 04:15 Nucleated RBC % Not Reportable 07/07/20 04:15 Seg Neutrophils # 8.2 K/mm3 (1.8-7.7) H 07/08/20 04:14 Seg Neutrophils # Man 5.5 K/mm3 (1.8-7.7) 07/07/20 04:15 Band Neutrophils # 0.0 K/mm3 07/07/20 04:15 Lymphocytes # (Manual) 1.0 K/mm3 (1.2-5.4) L 07/07/20 04:15 Abs React Lymphs (Man) 0.0 K/mm3 07/07/20 04:15 Monocytes # (Manual) 0.9 K/mm3 (0.0-0.8) H 07/07/20 04:15 Eosinophils # (Manual) 0.2 K/mm3 (0.0-0.4) 07/07/20 04:15 Basophils # (Manual) 0.1 K/mm3 (0.0-0.1) 07/07/20 04:15 Metamyelocytes # 0.3 K/mm3 07/07/20 04:15 Myelocytes # 0.0 K/mm3 07/07/20 04:15 Promyelocytes # 0.0 K/mm3 07/07/20 04:15 Blast Cells # 0.0 K/mm3 07/07/20 04:15 WBC Morphology Not Reportable 07/07/20 04:15 Hypersegmented Neuts Not Reportable 07/07/20 04:15 Hyposegmented Neuts Not Reportable 07/07/20 04:15 Hypogranular Neuts Not Reportable 07/07/20 04:15 Smudge Cells Not Reportable 07/07/20 04:15 Toxic Granulation Not Reportable 07/07/20 04:15 Toxic Vacuolation Not Reportable 07/07/20 04:15 Dohle Bodies Not Reportable 07/07/20 04:15 Pelger-Huet Anomaly Not Reportable 07/07/20 04:15 Sanjuanita Rods Not Reportable 07/07/20 04:15 Platelet Estimate Consistent w auto 07/07/20 04:15 Clumped Platelets Not Reportable 07/07/20 04:15 Plt Clumps, EDTA Not Reportable 07/07/20 04:15 Large Platelets Not Reportable 07/07/20 04:15 Giant Platelets Not Reportable 07/07/20 04:15 Platelet Satelliting Not Reportable 07/07/20 04:15 Plt Morphology Comment Not Reportable 07/07/20 04:15 RBC Morphology Not Reportable 07/07/20 04:15 Dimorphic RBCs Not Reportable 07/07/20 04:15 Polychromasia Not Reportable 07/07/20 04:15 Hypochromasia Not Reportable 07/07/20 04:15 Poikilocytosis Not Reportable 07/07/20 04:15 Anisocytosis Few 07/07/20 04:15 Microcytosis Not Reportable 07/07/20 04:15 Macrocytosis Not Reportable 07/07/20 04:15 Spherocytes Rare 07/07/20 04:15 Pappenheimer Bodies Not Reportable 07/07/20 04:15 Sickle Cells Not Reportable 07/07/20 04:15 Target Cells Not Reportable 07/07/20 04:15 Tear Drop Cells Not Reportable 07/07/20 04:15 Ovalocytes Few 07/07/20 04:15 Helmet Cells Not Reportable 07/07/20 04:15 Jones-Valmy Bodies Not Reportable 07/07/20 04:15 Penrose Rings Not Reportable 07/07/20 04:15 [place] Cells Rare 07/07/20 04:15 Bite Cells Not Reportable 07/07/20 04:15 Crenated Cell Not Reportable 07/07/20 04:15 Elliptocytes Not Reportable 07/07/20 04:15 Acanthocytes (Spur) Rare 07/07/20 04:15 Rouleaux Not Reportable 07/07/20 04:15 Hemoglobin C Crystals Not Reportable 07/07/20 04:15 Schistocytes Not Reportable 07/07/20 04:15 Malaria parasites Not Reportable 07/07/20 04:15 Kev Bodies Not Reportable 07/07/20 04:15 Hem Pathologist Commnt No 07/07/20 04:15 PT 14.2 Sec. (12.2-14.9) 05/29/20 15:10 INR 1.08 (0.87-1.13) 05/29/20 15:10 APTT 27.2 Sec. (24.2-36.6) 05/29/20 15:10 D-Dimer 2310.15 ng/mlDDU (0-234) H 06/29/20 14:45 Heparin Anti-Xa Level 0.34 U.I./ml (0.3-0.7) 06/19/20 10:46 ABG pH 7.32 pH Units (7.350-7.450) L 07/05/20 13:05 POC ABG pCO2 35.8 mmHg (32.0-48.0) 07/01/20 05:02 ABG pCO2 47.0 mm Hg 07/05/20 13:05 ABG Oxyhemoglobin 92.6 (94-98) L 06/23/20 12:34 POC ABG pO2 90.8 mmHg (83-108) 07/01/20 05:02 ABG pO2 78.3 mm Hg (80.0-90.0) L 07/05/20 13:05 POC ABG HCO3 22.1 07/01/20 05:02 ABG HCO3 23.4 mmol/L (20.0-26.0) 07/05/20 13:05 ABG O2 Saturation 96.1 % (95.0-99.0) 07/05/20 13:05 ABG O2 Content 0.3 (0.0-44) 07/05/20 13:05 POC ABG Base Excess -2.3 07/01/20 05:02 ABG Base Excess -2.6 mmol/L (-2.0-3.0) L 07/05/20 13:05 ABG Hemoglobin 7.3 gm/dl (12.0-16.0) L 07/05/20 13:05 ABG Carboxyhemoglobin 1.7 % (0.0-5.0) 07/05/20 13:05 ABG Methemoglobin 0.2 % (0.0-1.5) 07/05/20 13:05 VBG pH 7.152 (7.320-7.420) L* 05/28/20 13:47 Carboxyhemoglobin 0.5 (0.5-1.5) 06/23/20 12:34 Oxyhemoglobin 97.4 % (95.0-99.0) 07/05/20 13:05 FiO2 30 % 07/05/20 13:05 Sodium 136 mmol/L (137-145) L 07/08/20 04:14 Potassium 4.6 mmol/L (3.6-5.0) 07/08/20 04:14 Chloride 104.3 mmol/L (98-107) 07/08/20 04:14 Carbon Dioxide 22 mmol/L (22-30) 07/08/20 04:14 Anion Gap 14 mmol/L 07/08/20 04:14 BUN 84 mg/dL (7-17) H 07/08/20 04:14 Creatinine 2.8 mg/dL (0.6-1.2) H 07/08/20 04:14 Estimated GFR 17 ml/min 07/08/20 04:14 BUN/Creatinine Ratio 30 % 07/08/20 04:14 Glucose 109 mg/dL (65-100) H 07/08/20 04:14 POC Glucose 100 (70-105) 07/08/20 05:42 Lactic Acid 0.60 mmol/L (0.7-2.0) L 06/27/20 05:00 Calcium 8.1 mg/dL (8.4-10.2) L 07/08/20 04:14 Ferritin 223.6 ng/mL (10.0-200.0) H 06/29/20 14:45 Total Bilirubin 0.20 mg/dL (0.1-1.2) 06/28/20 09:47 AST 24 units/L (5-40) 06/28/20 09:47 ALT 21 units/L (7-56) 06/28/20 09:47 Alkaline Phosphatase 113 units/L (35-129) 06/28/20 09:47 Magnesium 2.50 mg/dL (1.7-2.3) H 07/08/20 04:14 Lactate Dehydrogenase 367 units/L (91-180) H 06/29/20 14:45 C-Reactive Protein 3.60 mg/dL (0.00-1.30) H 06/29/20 14:45 Total Protein 5.0 g/dL (6.3-8.2) L 06/28/20 09:47 Albumin 2.1 g/dL (3.9-5) L 06/28/20 09:47 Albumin/Globulin Ratio 0.7 % 06/28/20 09:47 Total Creatine Kinase 300 units/L (30-135) H 07/01/20 06:01 CK-MB (CK-2) 2.0 ng/mL (0.0-4.0) 07/01/20 06:01 CK-MB (CK-2) Rel Index 0.6 (0-4) 07/01/20 06:01 Troponin T 0.067 ng/mL (0.00-0.029) H 07/01/20 06:01 Triglycerides 142 mg/dL (2-149) 07/01/20 06:01 Cholesterol 137 mg/dL (50-199) 07/01/20 06:01 LDL Cholesterol Direct 62 mg/dL (50-130) 07/01/20 06:01 HDL Cholesterol 61 mg/dL (40-59) H 07/01/20 06:01 Cholesterol/HDL Ratio 2.24 % 07/01/20 06:01 Procalcitonin 2.45 ng/mL (<0.15) 06/29/20 14:45 Urine Color Yellow (Yellow) 06/06/20 04:00 Urine Turbidity Cloudy (Clear) 06/06/20 04:00 Urine pH 5.0 (5.0-7.0) 06/06/20 04:00 Ur Specific [place] 1.012 (1.003-1.030) 06/06/20 04:00 Urine Protein 100 mg/dl mg/dL (Negative) 06/06/20 04:00 Urine Glucose (UA) 50 mg/dL (Negative) 06/06/20 04:00 Urine Ketones Neg mg/dL (Negative) 06/06/20 04:00 Urine Blood Sm (Negative) 06/06/20 04:00 Urine Nitrite Neg (Negative) 06/06/20 04:00 Urine Bilirubin Neg (Negative) 06/06/20 04:00 Urine Urobilinogen < 2.0 mg/dL (<2.0) 06/06/20 04:00 Ur Leukocyte Esterase Neg (Negative) 06/06/20 04:00 Urine WBC (Auto) 15.0 /HPF (0.0-6.0) H 06/06/20 04:00 Urine RBC (Auto) 23.0 /HPF (0.0-6.0) 06/06/20 04:00 U Epithel Cells (Auto) 8.0 /HPF (0-13.0) 06/06/20 04:00 Urine Bacteria (Auto) 2+ /HPF (Negative) 06/06/20 04:00 Amorphous Crystals 1+ 06/06/20 04:00 Hyaline Casts 16 /LPF 06/06/20 04:00 Urine Mucus 2+ /HPF 06/06/20 04:00 Urine Yeast (Budding) 2+ /HPF 06/03/20 Unknown Urine Creatinine 33.3 mg/dL (0.1-20.0) H 07/06/20 13:20 Urine Sodium 21 mmol/L 07/06/20 13:20 Urine Total Protein 196 mg/dL (5-11.8) H 06/06/20 04:00 Nasal Screen MRSA (PCR) Negative (Negative) 06/29/20 08:30 Coronavirus (PCR) Positive (Negative) A 06/29/20 Unknown Blood Type A POSITIVE 07/05/20 02:30 Antibody Screen Negative 07/05/20 02:30 Crossmatch See Detail 07/05/20 02:30 - Diagnostic Impressions Diagnostic Impressions: Echocardiogram Limited Views 05/29/20 13:52 Transthoracic Echocardiogram Indication: Pulm Embolus BP: 169/76 HR: 85 Conclusions *Limited study for RV size post cardiopulmonar arrest. *RV is only slightly dilated, no significant difference from prior echo 05/13/2020. *Global left ventricular systolic function is at the lower limits of normal. *The estimated ejection fraction is 45-50%. *Mild to moderate concentric left ventricular hypertrophy is observed. *The left and right atria are both mild to moderately dilated. Findings Left Ventricle: The left ventricular chamber size is mildly dilated. Mild to moderate concentric left ventricular hypertrophy is observed. Global left ventricular systolic function is at the lower limits of normal. The estimated ejection fraction is 45-50%. Left Atrium: The left atrium is mild to moderately dilated. Right Ventricle: The right ventricle is slightly dilated. Right Atrium: The right atrium is mild to moderately dilated. Aortic Valve: The aortic valve leaflets are moderately thickened. Mitral Valve: There is mitral annular calcification. The mitral valve leaflets are moderately thickened. Tricuspid Valve: The tricuspid valve leaflets are mildly thickened. Pericardium: A trivial pericardial effusion is visualized. NDUM: 05/29/20 1808 Amended Report Transthoracic Echocardiogram Indication: Pulm Embolus BP: 169/76 HR: 85 Conclusions *Limited study for RV size post cardiopulmonary arrest. *RV is only slightly dilated, no significant difference from prior echo 05/13/2020. *Global left ventricular systolic function is at the lower limits of normal. *The estimated ejection fraction is 45-50%. *Mild to moderate concentric left ventricular hypertrophy is observed. *The left and right atria are both mild to moderately dilated. Findings Left Ventricle: The left ventricular chamber size is mildly dilated. Mild to moderate concentric left ventricular hypertrophy is observed. Global left ventricular systolic function is at the lower limits of normal. The estimated ejection fraction is 45-50%. Left Atrium: The left atrium is mild to moderately dilated. Right Ventricle: The right ventricle is slightly dilated. Right Atrium: The right atrium is mild to moderately dilated. Aortic Valve: The aortic valve leaflets are moderately thickened. Mitral Valve: There is mitral annular calcification. The mitral valve leaflets are moderately thickened. Tricuspid Valve: The tricuspid valve leaflets are mildly thickened. Pericardium: A trivial pericardial effusion is visualized. Helm/IV: Voiding Method Indwelling Catheter IV Catheter Type [Left Wrist] INT / Saline Lock IV Catheter Type [Left Upper Mid-line arm] IV Catheter Type [Right CVL Internal Jugular] IV Catheter Type [Right Hand] INT / Saline Lock IV Catheter Type [Right Wrist] Not found on patient IV Catheter Type [Left Hand] INT / Saline Lock IV Catheter Type [Left INT / Saline Lock Antecubital] IV Catheter Type [Right Peripheral IV Forearm] IV Catheter Type [Left Leg] Intra-osseous Active Medications - Current Medications Current Medications: Generic Name Dose Route Start Last Admin Trade Name Freq PRN Reason Stop Dose Admin Acetaminophen 650 mg 06/09/20 10:57 06/29/20 21:18 Tylenol FEEDTUBE 650 mg Q6H PRN Administration Fever >101 Amlodipine Besylate 10 mg 06/02/20 11:00 07/08/20 09:13 Amlodipine PO 10 mg DAILY NELSON Administration Lipase/Protease/Amylase 1 each 05/29/20 13:39 07/07/20 10:[address] 10,500 Unit FEEDTUBE 1 each PRN PRN Administration For Clogged Feeding Tube Carvedilol 12.5 mg 06/03/20 10:00 07/08/20 09:12 Coreg PO 12.5 mg BID NELSON Administration Clonidine HCl 0.2 mg 06/23/20 22:00 07/08/20 09:12 Catapres PO 0.2 mg Q12HR NELSON Administration Glycopyrrolate 2 mg 06/09/20 14:00 07/08/20 09:12 Glycopyrrolate PO 2 mg TID NELSON Administration Heparin Sodium (Porcine) 5,000 unit 06/30/20 14:00 07/08/20 06:00 Heparin SUB-Q 5,000 unit Q8HR NELSON Administration Hydrophilic Ointment 1 applic 05/28/20 13:49 Vaseline Lip Therapy TP Q2HR PRN Dry Lips Vasopressin 20 unit/ Sodium 101 mls @ 9.09 mls/hr 06/26/20 19:00 06/26/20 19:30 Chloride IV 0 units/min TITR NELSON 0 mls/hr Titration Protocol 0.03 UNITS/MIN Norepinephrine 4 mg in 250 mls @ 7.5 mls/hr 06/26/20 19:00 06/26/20 20:06 Levophed Drip 4 Mg/Ns 250 Ml IV 0 mcg/min TITR NELSON 0 mls/hr Titration Protocol 2 MCG/MIN Phenylephrine HCl 100 mg/ 100 mls @ 3 mls/hr 06/26/20 18:15 Sodium Chloride IV TITR NELSON Protocol 50 MCG/MIN Sodium Chloride 500 mls @ 5 mls/hr 06/30/20 22:00 06/30/20 21:42 Nacl 0.9% 500 Ml IV 5 mls/hr DIRECT NELSON Administration Insulin Glargine 10 units 06/08/20 22:00 07/07/20 21:48 Lantus SUB-Q 10 units QHS NELSON Administration Insulin Human Lispro 0 unit 05/29/20 18:00 07/08/20 06:01 Humalog SUB-Q Not Given Q6H NELSON Protocol Labetalol HCl 20 mg 06/03/20 09:00 07/07/20 15:37 Labetalol IV 20 mg Q4H PRN Administration HYPERTENSION Lansoprazole 30 mg 06/05/20 22:00 07/08/20 09:12 Prevacid Solutab FEEDTUBE 30 mg BID NELSON Administration Levetiracetam 500 mg 06/16/20 11:00 07/08/20 09:12 Keppra PO 500 mg BID NELSON Administration Lidocaine HCl 15 ml 06/26/20 20:00 07/08/20 09:13 Magic Mouthwash PO 15 ml TID NELSON Administration Modafinil 100 mg 07/02/20 20:00 07/08/20 09:12 Provigil PO 100 mg DAILY NELSON Administration Multi-Ingred Cream/Lotion/Oil/Oint 1 applic 05/28/20 13:49 Artificial Tears Ophth Oint OU Q4HR PRN Dry Eye(s) Ondansetron HCl 4 mg 06/02/20 09:00 06/09/20 16:48 Zofran IV 4 mg Q8H PRN Administration Nausea And Vomiting Senna 17.6 mg 06/03/20 10:00 07/08/20 09:13 Senokot FEEDTUBE Not Given BID NELSON Simple Syrup 15 ml 05/29/20 13:39 Simple Syrup FEEDTUBE PRN PRN Hypoglycemia Simple Syrup 30 ml 05/29/20 13:39 Simple Syrup FEEDTUBE PRN PRN Hypoglycemia Sodium Bicarbonate 325 mg 05/29/20 13:39 07/07/20 10:36 Sodium Bicarbonate FEEDTUBE 325 mg PRN PRN Administration For Clogged Feeding Tube Sodium Chloride 10 ml 05/28/20 22:00 07/08/20 09:13 Sodium Chloride Flush Syringe 10 Ml IV 10 ml BID NELSON Administration Sodium Chloride 10 ml 05/28/20 19:08 06/16/20 17:50 Sodium Chloride Flush Syringe 10 Ml IV 10 ml PRN PRN Administration LINE FLUSH Nutrition/Malnutrition Assess - Dietary Evaluation Nutrition/Malnutrition Findings: Nutrition Notes Start: 05/29/20 11:45 Freq: Status: Active Protocol: Document 07/06/20 12:04 ALFRED (Rec: 07/06/20 12:09 [id number]) Co-Sign 07/06/20 12:04 LP Nutrition Notes Initial or Follow up Reassessment Current Diagnosis Acute Kidney Injury,Diabetes, Heart Failure,Respiratory Failure Other Pertinent Diagnosis COVID-19 (+) Current Diet Glucerna 1.2 at 55ml/hr Labs/Tests Reviewed Pertinent Medications Reglan Height 5 ft 6 in Weight 123 kg [place] Body Weight (kg) 59.09 BMI 43.7 Weight Status Morbidly Obese Subjective/Other Information FU for TF tolerance. Per RN pt tolerating TF today. Per chart pt aspirated 200 ml yesterday. Percent of energy/protein needs met: 99%/53% Burn Absent Trauma Absent Current % PO Negligible Minimum of two criteria No physical signs of malnutrition Fluid Accumulation Mild (non-severe) #1 Nutrition Diagnosis Inadequate oral intake Diagnosis Progress(for reassessment Continues documentation) Is patient on ventilator? Yes Is Patient Ambulatory and/or Out of Bed No REE-([place]-St. Jeor-confined to bed) 2172.576 Kcal/Kg value to use for calculation 13 Approximate Energy Requirements Using 1599 kcal/Kg Calculation Used for Recommendations Kcal/kg Additional Notes Protein needs up to 148g (up to 2.5g/kg IBW) Fluid needs 1ml/kcal Nutrition Intervention Change Diet Order: Continue Nutrition Support: Glucerna 1.2 at 55ml/hr Flush 100ml q4h Kcal 1,584 Protein (gm) 79 Fluid (mL) 1,062 Goal #1 TF tolerance Goal #2 TF to meet at least 65%-70% energy and 80% protein needs Anticipated Discharge Needs: Unable to determine at this time Follow-Up By: 07/09/20 Additional Comments FU for TF tolerance
--- NOTE | 2020-07-08 10:33 | Progress Note ---
Assessment and Plan Cultures: Coronavirus PCR 05/28/2020: Positive 05/28/2020 blood culture: no growth 05/28/2020 tracheal aspirate: Usual respiratory bobo 05/28/2020 urine culture: No growth 06/03/2020 urine culture: No growth 06/09/2020 tracheal aspirate Klebsiella pneumoniae 06/28/2020 sputum culture positive for Klebsiella 06/28/2020 blood cultures no growth today 06/29/2020 COV2 PCR positive A/P: 64-year-old female with hypertension, diastolic CHF, pulmonary hypertension, diabetes, obesity hypoventilation syndrome, recent COVID pneumonia, was admitted to the emergency room after she called EMS due to difficulty breathing. On the way to the hospital, patient developed cardiac arrest and was treated as per ACLS protocol: #Cardiac arrest on 07/01/2020 #Sepsis on 06/27/2020: Resolved. After asystolic cardiac arrest on 06/26/2028. #Bilateral pneumonia: Secondary to COVID-19. Completed 5 days of IV Remdesivir 06/02/2020, completed steroids. ? Healthcare associated pneumonia, repeat sputum Klebsiella. Chest x-ray worsening infiltrates. Completed abx. #Acute hypoxic respiratory failure: On mechanical ventilation. Minimal vent settings. #HF: EF 45-50% #Mild LFT elevation: likely from COVID-19. #Severe constipation: Status post manual disimpaction #Encephalopathy: ? Post cardiac arrest. Recs: -continue supportive care -overall poor prognosis Mallory Wright MD, FACP [facility] C: [phone] O: [phone] F: [phone] Subjective Date of service: 07/08/20 Principal diagnosis: Ac hypoxemic resp failure; COVID-19; pneumonia; CHF; Pulm HTN; OHS; DM II Interval history: Remains intubated, on the vent. No fever. Objective - Exam Narrative Exam: Physical Exam (reviewed in chart due to PPE conservation) Constitutional: intubated, sedated, on the vent Head, Ears, Nose: normocephalic, atraumatic Eyes: limited due to PPE conservation strategy Neck: intubated Oral: intubated Cardiovascular: limited due to PPE conservation strategy Respiratory: limited due to PPE conservation strategy GI: limited due to PPE conservation strategy Musculoskeletal: limited due to PPE conservation strategy Skin: limited due to PPE conservation strategy Hem/Lymphatic: limited due to PPE conservation strategy Psych: no agitation Neurological: sedated, intubated, on the vent, exam limited - Constitutional Vitals: Vital Signs Temp Pulse Resp BP Pulse Ox 97.8 F 70 14 154/65 97 07/08/20 08:00 07/08/20 10:15 07/08/20 10:00 07/08/20 10:15 07/08/20 10:00 Temperature -Last 24 Hours Temperature 97.8 F Temperature 97.8 F Temperature 98.2 F Temperature 97.7 F Temperature 97.5 F Temperature 98.0 F Temperature 97.9 F Temperature 97.9 F Temperature 97.9 F Temperature 97.9 F Temperature 97.5 F Temperature 97.4 F Temperature 97.9 F - Labs CBC & Chem 7: 07/08/20 04:14 07/08/20 04:14 Labs: Abnormal lab results 07/05/20 07/07/20 07/07/20 Range/Units 02:30 12:31 13:22 RBC (3.65-5.03) M/mm3 Hgb (10.1-14.3) gm/dl Hct (30.3-42.9) % RDW (13.2-15.2) % Lymph % (Auto) (13.4-35.0) % [place] % (Auto) (0.0-7.3) % Lymph # (Auto) (1.2-5.4) K/mm3 [place] # (Auto) (0.0-0.8) K/mm3 Seg Neutrophils % (40.0-70.0) % Seg Neutrophils # (1.8-7.7) K/mm3 Sodium (137-145) mmol/L Potassium 5.6 H (3.6-5.0) mmol/L BUN 86 H (7-17) mg/dL Creatinine 2.9 H (0.6-1.2) mg/dL Glucose 127 H (65-100) mg/dL POC Glucose 131 H (70-105) Calcium 8.1 L (8.4-10.2) mg/dL Magnesium (1.7-2.3) mg/dL Crossmatch See Detail 07/07/20 07/07/20 07/08/20 Range/Units 17:55 23:33 04:14 RBC 3.28 L (3.65-5.03) M/mm3 Hgb 9.7 L (10.1-14.3) gm/dl Hct 28.9 L D (30.3-42.9) % RDW 16.4 H (13.2-15.2) % Lymph % (Auto) 10.3 L (13.4-35.0) % [place] % (Auto) 10.0 H (0.0-7.3) % Lymph # (Auto) 1.1 L (1.2-5.4) K/mm3 [place] # (Auto) 1.1 H (0.0-0.8) K/mm3 Seg Neutrophils % 77.2 H (40.0-70.0) % Seg Neutrophils # 8.2 H (1.8-7.7) K/mm3 Sodium (137-145) mmol/L Potassium (3.6-5.0) mmol/L BUN (7-17) mg/dL Creatinine (0.6-1.2) mg/dL Glucose (65-100) mg/dL POC Glucose 136 H 159 H (70-105) Calcium (8.4-10.2) mg/dL Magnesium (1.7-2.3) mg/dL Crossmatch 07/08/20 Range/Units 04:14 RBC (3.65-5.03) M/mm3 Hgb (10.1-14.3) gm/dl Hct (30.3-42.9) % RDW (13.2-15.2) % Lymph % (Auto) (13.4-35.0) % [place] % (Auto) (0.0-7.3) % Lymph # (Auto) (1.2-5.4) K/mm3 [place] # (Auto) (0.0-0.8) K/mm3 Seg Neutrophils % (40.0-70.0) % Seg Neutrophils # (1.8-7.7) K/mm3 Sodium 136 L (137-145) mmol/L Potassium (3.6-5.0) mmol/L BUN 84 H (7-17) mg/dL Creatinine 2.8 H (0.6-1.2) mg/dL Glucose 109 H (65-100) mg/dL POC Glucose (70-105) Calcium 8.1 L (8.4-10.2) mg/dL Magnesium 2.50 H (1.7-2.3) mg/dL Crossmatch
--- NOTE | 2020-07-08 13:07 | Progress Note ---
Assessment and Plan Acute hypoxemic respiratory failure on MVS Coronavirus-19 infection. Bilateral pulmonary infiltrates, bilateral pneumonia plus likely element of Pulmonary edema. Bilateral pulmonary edema. Bilateral pleural effusions. History of congestive heart failure. Morbid obesity. History of pulmonary hypertension. History of hypertension. Diabetes. Obesity hypoventilation syndrome. Elevated serum inflammatory markers to include D-dimers and LDH levels. Hyperkalemia at presentation. Metabolic acidosis. Oropharyngeal dysphagia. (AMS is a rate limiting factor to safe extubation; tracheostomy may ultimately be required if persistent) - azotemia per nephrology rec's - s/p PRBC transfusion - ETT day # 9; will consult for tracheostomy if no improvement in MAS by monday (at initial admission she also had a slow return of function) - continue care as below otherwise while following mental status; - GI evaluation ongoing - continue Modafinil re: lethargy / somnolence - continue daytime PSV trials as tolerated - advance tube feeds to goal rate as tolerated (if OK with GI team) - continue Reglan - Daily SAT and SBT assessment as tolerated - continue to wean supplemental oxygen for target O2 sat's > 90% acutely - VAP bundle addressed - continue lung protective strategies - continue bronchodilators with pulmonary hygiene per RT - wean per pulmonary driven protocols otherwise - continue accuchecks resumed with glycemic control per SSI (While critically ill target blood glucose of 140-180 mg/dL; avoid hypoglycemia) - sedation prn for target RASS 0 to -1 - continue to avoid benzodiazepine's, reduce the possibility of delirium - completed AB's per ID rec's - prn analgesia per CPOT score - Maintenance of sleep-wake cycle, avoid delirium - continue enteral nutritional support at goal rate as tolerated - G.I. & VTE prophylaxis with heparin & famotidine - PT/OT/ROM exercises - continue mobility protocols for pressure ulcer prophylaxis - Monitor hemodynamics closely - continue other care per attending / other consultants - discharge planning ongoing concurrently (LTAC evaluation is appropriate) .... Re-evaluate in am & prn CONDITION: CRITICAL PROGNOSIS: GUARDED CODE STATUS: FULL CODE The high probability of a clinically significant, sudden or life-threatening de terioration of the [respiratory, cardiovascular, GI & neurologic] system(s) required my full and direct attention, intervention and personal management. The aggregate critical care time was [34] minutes without overlap. Time includes spent on; [x] Data Review and interpretation [x] Patient assessment and monitoring of vital signs [x] Documentation [x] Medication orders and management Subjective Date of service: 07/08/20 Principal diagnosis: Ac hypoxemic resp failure; COVID-19; pneumonia; CHF; Pulm HTN; OHS; DM II Interval history: Patient is seen today for: Ac hypoxemic resp failure; Coronavirus-19 infection; pneumonia; Pulmonary edema; Bilateral pleural effusions; CHF; Morbid obesity; pulmonary hypertension; OHS; DM II Seen and examined at bedside; 24hour events reviewed; nursing and respiratory care staff consulted; no adverse overnight events reported to me; resting peacefully in bed; remains on MVS; AMS is persistent; non oliguric; tolerating SBT's; no emesis or overt aspiration Objective Vital Signs - 12hr 07/08/20 07/08/20 07/08/20 01:16 01:30 01:46 Temperature Pulse Rate 73 74 74 Pulse Rate [ From Monitor] Respiratory 20 17 17 Rate Blood Pressure 156/75 156/75 151/67 O2 Sat by Pulse 100 100 100 Oximetry 07/08/20 07/08/20 07/08/20 02:00 02:16 02:30 Temperature Pulse Rate 75 74 72 Pulse Rate [ From Monitor] Respiratory 19 17 18 Rate Blood Pressure 151/67 151/67 151/67 O2 Sat by Pulse 99 100 100 Oximetry 07/08/20 07/08/20 07/08/20 02:46 03:00 03:16 Temperature Pulse Rate 71 72 72 Pulse Rate [ From Monitor] Respiratory 12 14 16 Rate Blood Pressure 152/66 152/66 145/60 O2 Sat by Pulse 100 100 100 Oximetry 07/08/20 07/08/20 07/08/20 03:30 03:46 04:00 Temperature 98.2 F Pulse Rate 72 73 75 Pulse Rate [ 85 From Monitor] Respiratory 14 17 20 Rate Blood Pressure 145/60 148/69 148/69 O2 Sat by Pulse 100 100 100 Oximetry 07/08/20 07/08/20 07/08/20 04:13 04:16 04:30 Temperature Pulse Rate 70 71 72 Pulse Rate [ From Monitor] Respiratory 15 17 Rate Blood Pressure 169/61 169/61 169/61 O2 Sat by Pulse 100 100 100 Oximetry 07/08/20 07/08/20 07/08/20 04:46 05:00 05:16 Temperature Pulse Rate 73 72 74 Pulse Rate [ From Monitor] Respiratory 19 15 16 Rate Blood Pressure 162/72 162/72 161/71 O2 Sat by Pulse 100 100 100 Oximetry 07/08/20 07/08/20 07/08/20 05:30 05:46 06:00 Temperature Pulse Rate 69 72 77 Pulse Rate [ From Monitor] Respiratory 17 16 16 Rate Blood Pressure 161/71 170/64 170/64 O2 Sat by Pulse 100 100 100 Oximetry 07/08/20 07/08/20 07/08/20 06:16 06:30 06:46 Temperature Pulse Rate 74 75 72 Pulse Rate [ From Monitor] Respiratory 15 19 17 Rate Blood Pressure 158/60 158/60 158/59 O2 Sat by Pulse 99 100 100 Oximetry 07/08/20 07/08/20 07/08/20 07:00 07:16 07:30 Temperature Pulse Rate 69 78 71 Pulse Rate [ From Monitor] Respiratory 18 17 15 Rate Blood Pressure 158/59 145/57 145/57 O2 Sat by Pulse 100 99 100 Oximetry 07/08/20 07/08/20 07/08/20 07:32 07:46 08:00 Temperature 97.8 F Pulse Rate 76 75 78 Pulse Rate [ 74 From Monitor] Respiratory 25 H 23 17 Rate Blood Pressure 147/62 147/62 147/62 O2 Sat by Pulse 99 99 98 Oximetry 07/08/20 07/08/20 07/08/20 08:16 08:30 08:45 Temperature Pulse Rate 73 74 81 Pulse Rate [ From Monitor] Respiratory 22 19 21 Rate Blood Pressure 160/65 160/65 163/64 O2 Sat by Pulse 99 99 100 Oximetry 07/08/20 07/08/20 07/08/20 09:01 09:12 09:13 Temperature Pulse Rate 71 70 70 Pulse Rate [ From Monitor] Respiratory 17 Rate Blood Pressure 167/66 167/66 167/66 O2 Sat by Pulse 97 Oximetry 07/08/20 07/08/20 07/08/20 09:15 09:31 09:45 Temperature Pulse Rate 70 70 69 Pulse Rate [ From Monitor] Respiratory 16 16 15 Rate Blood Pressure 167/66 157/64 157/64 O2 Sat by Pulse 100 97 100 Oximetry 07/08/20 07/08/20 07/08/20 10:00 10:15 10:30 Temperature Pulse Rate 68 70 71 Pulse Rate [ From Monitor] Respiratory 14 14 16 Rate Blood Pressure 154/65 154/65 168/67 O2 Sat by Pulse 97 100 96 Oximetry 07/08/20 07/08/20 07/08/20 10:45 11:00 11:15 Temperature Pulse Rate 69 78 69 Pulse Rate [ From Monitor] Respiratory 16 24 15 Rate Blood Pressure 168/67 162/69 162/69 O2 Sat by Pulse 99 97 99 Oximetry 07/08/20 07/08/20 07/08/20 11:31 11:45 11:47 Temperature Pulse Rate 69 70 70 Pulse Rate [ From Monitor] Respiratory 15 16 Rate Blood Pressure 161/63 161/63 161/63 O2 Sat by Pulse 97 100 99 Oximetry 07/08/20 07/08/20 07/08/20 12:00 12:15 12:31 Temperature 97.7 F Pulse Rate 73 74 71 Pulse Rate [ 77 From Monitor] Respiratory 14 16 14 Rate Blood Pressure 167/68 167/68 149/59 O2 Sat by Pulse 97 99 97 Oximetry 07/08/20 07/08/20 12:45 13:00 Temperature Pulse Rate 72 76 Pulse Rate [ From Monitor] Respiratory 15 18 Rate Blood Pressure 149/59 142/58 O2 Sat by Pulse 100 97 Oximetry Constitutional: no acute distress, other (elderly looking obese female on HFNC with mildly increased respiratory effort at rest on MVS) Eyes: non-icteric ENT: oropharynx dry, other (ETT 23-24 cm AYAN) Neck: supple, no lymphadenopathy, no JVD, other (large neck circumference) Effort: mildly labored Ascultation: Bilateral: diminished breath sounds, rhonchi (scant) Percussion: Bilateral: not dull Cardiovascular: regular rate and rhythm, other (S1,S2) Gastrointestinal: normoactive bowel sounds, soft, non-tender, non-distended Integumentary: normal Extremities: no cyanosis, no edema, pink and warm, pulses normal, no ischemia or petechiae Neurologic: pupils equal and round, unable to assess, other (lethargic to obtunded) Psychiatric: other (unable to assess re: AMS) CBC and BMP: 07/10/20 10:41 07/10/20 10:41 ABG, PT/INR, D-dimer: ABG ABG pH 7.32 pH Units (7.350-7.450) L 07/05/20 13:05 POC ABG pCO2 35.8 mmHg (32.0-48.0) 07/01/20 05:02 ABG pCO2 47.0 mm Hg 07/05/20 13:05 POC ABG pO2 90.8 mmHg (83-108) 07/01/20 05:02 ABG pO2 78.3 mm Hg (80.0-90.0) L 07/05/20 13:05 POC ABG HCO3 22.1 07/01/20 05:02 ABG O2 Saturation 96.1 % (95.0-99.0) 07/05/20 13:05 PT/INR, D-dimer PT 14.2 Sec. (12.2-14.9) 05/29/20 15:10 INR 1.08 (0.87-1.13) 05/29/20 15:10 D-Dimer 2310.15 ng/mlDDU (0-234) H 06/29/20 14:45 Abnormal lab findings: Abnormal Labs 05/28/20 05/28/20 05/28/20 13:29 13:47 13:47 WBC RBC Hgb Hct MCHC RDW 15.3 H Lymph % (Auto) [place] % (Auto) Eos % (Auto) Lymph # [place] # Lymph # (Auto) [place] # (Auto) Seg Neutrophils % Seg Neuts % (Manual) Lymphocytes % (Manual) Seg Neutrophils # Seg Neutrophils # Man Lymphocytes # (Manual) Monocytes % (Manual) Eosinophils % (Manual) Monocytes # (Manual) Eosinophils # (Manual) D-Dimer Heparin Anti-Xa Level ABG pH POC ABG pCO2 POC ABG pO2 ABG pO2 ABG HCO3 ABG O2 Saturation ABG Base Excess ABG Hemoglobin ABG Oxyhemoglobin VBG pH Oxyhemoglobin Sodium Potassium 6.6 H* Chloride 109.2 H Carbon Dioxide 17 L BUN 29 H Creatinine 1.3 H Glucose 265 H POC Glucose 248 H Lactic Acid Calcium 8.1 L Ferritin AST 63 H Alkaline Phosphatase Magnesium Lactate Dehydrogenase Total Creatine Kinase 301 H CK-MB (CK-2) 4.3 H C-Reactive Protein Total Protein 5.4 L Albumin 2.6 L Troponin T HDL Cholesterol Urine WBC (Auto) Urine Creatinine Urine Total Protein Coronavirus (PCR) Crossmatch 05/28/20 05/28/20 05/28/20 13:47 13:47 14:46 WBC RBC Hgb Hct MCHC RDW Lymph % (Auto) [place] % (Auto) Eos % (Auto) Lymph # [place] # Lymph # (Auto) [place] # (Auto) Seg Neutrophils % Seg Neuts % (Manual) Lymphocytes % (Manual) Seg Neutrophils # Seg Neutrophils # Man Lymphocytes # (Manual) Monocytes % (Manual) Eosinophils % (Manual) Monocytes # (Manual) Eosinophils # (Manual) D-Dimer Heparin Anti-Xa Level ABG pH POC ABG pCO2 POC ABG pO2 ABG pO2 ABG HCO3 ABG O2 Saturation ABG Base Excess ABG Hemoglobin ABG Oxyhemoglobin VBG pH 7.152 L* Oxyhemoglobin Sodium Potassium 7.2 H* Chloride Carbon Dioxide BUN Creatinine Glucose POC Glucose Lactic Acid 3.40 H* Calcium Ferritin AST Alkaline Phosphatase Magnesium Lactate Dehydrogenase Total Creatine Kinase CK-MB (CK-2) C-Reactive Protein Total Protein Albumin Troponin T HDL Cholesterol Urine WBC (Auto) Urine Creatinine Urine Total Protein Coronavirus (PCR) Crossmatch 05/28/20 05/28/20 05/28/20 15:33 15:33 15:51 WBC RBC Hgb Hct MCHC RDW Lymph % (Auto) [place] % (Auto) Eos % (Auto) Lymph # [place] # Lymph # (Auto) [place] # (Auto) Seg Neutrophils % Seg Neuts % (Manual) Lymphocytes % (Manual) Seg Neutrophils # Seg Neutrophils # Man Lymphocytes # (Manual) Monocytes % (Manual) Eosinophils % (Manual) Monocytes # (Manual) Eosinophils # (Manual) D-Dimer 8780.43 H Heparin Anti-Xa Level ABG pH 7.284 L POC ABG pCO2 POC ABG pO2 ABG pO2 273.0 H ABG HCO3 ABG O2 Saturation 99.4 H ABG Base Excess -6.1 L ABG Hemoglobin 17.2 H ABG Oxyhemoglobin VBG pH Oxyhemoglobin Sodium Potassium Chloride Carbon Dioxide BUN Creatinine Glucose 152 H POC Glucose Lactic Acid Calcium Ferritin AST Alkaline Phosphatase Magnesium Lactate Dehydrogenase 365 H Total Creatine Kinase CK-MB (CK-2) C-Reactive Protein Total Protein Albumin Troponin T HDL Cholesterol Urine WBC (Auto) Urine Creatinine Urine Total Protein Coronavirus (PCR) Crossmatch 05/28/20 05/28/20 05/28/20 16:30 20:41 23:20 WBC RBC Hgb Hct MCHC RDW Lymph % (Auto) [place] % (Auto) Eos % (Auto) Lymph # [place] # Lymph # (Auto) [place] # (Auto) Seg Neutrophils % Seg Neuts % (Manual) Lymphocytes % (Manual) Seg Neutrophils # Seg Neutrophils # Man Lymphocytes # (Manual) Monocytes % (Manual) Eosinophils % (Manual) Monocytes # (Manual) Eosinophils # (Manual) D-Dimer Heparin Anti-Xa Level ABG pH POC ABG pCO2 POC ABG pO2 ABG pO2 ABG HCO3 ABG O2 Saturation ABG Base Excess ABG Hemoglobin ABG Oxyhemoglobin VBG pH Oxyhemoglobin Sodium Potassium Chloride Carbon Dioxide BUN Creatinine Glucose POC Glucose 225 H 224 H Lactic Acid Calcium Ferritin AST Alkaline Phosphatase Magnesium Lactate Dehydrogenase Total Creatine Kinase CK-MB (CK-2) C-Reactive Protein Total Protein Albumin Troponin T HDL Cholesterol Urine WBC (Auto) 17.0 H Urine Creatinine Urine Total Protein Coronavirus (PCR) Crossmatch 05/28/20 05/29/20 05/29/20 Unknown 04:35 04:43 WBC RBC 3.48 L Hgb 9.8 L Hct 29.4 L MCHC RDW 16.0 H Lymph % (Auto) 7.4 L [place] % (Auto) Eos % (Auto) Lymph # 0.7 L [place] # Lymph # (Auto) [place] # (Auto) Seg Neutrophils % 89.1 H Seg Neuts % (Manual) Lymphocytes % (Manual) Seg Neutrophils # 8.1 H Seg Neutrophils # Man Lymphocytes # (Manual) Monocytes % (Manual) Eosinophils % (Manual) Monocytes # (Manual) Eosinophils # (Manual) D-Dimer Heparin Anti-Xa Level ABG pH POC ABG pCO2 POC ABG pO2 ABG pO2 ABG HCO3 19.3 L ABG O2 Saturation ABG Base Excess -4.5 L ABG Hemoglobin 9.7 L ABG Oxyhemoglobin VBG pH Oxyhemoglobin Sodium Potassium Chloride Carbon Dioxide BUN Creatinine Glucose POC Glucose Lactic Acid Calcium Ferritin AST Alkaline Phosphatase Magnesium Lactate Dehydrogenase Total Creatine Kinase CK-MB (CK-2) C-Reactive Protein Total Protein Albumin Troponin T HDL Cholesterol Urine WBC (Auto) Urine Creatinine Urine Total Protein Coronavirus (PCR) Positive A Crossmatch 05/29/20 05/29/20 05/29/20 04:43 15:10 17:17 WBC RBC Hgb 9.3 L Hct 28.7 L MCHC RDW Lymph % (Auto) [place] % (Auto) Eos % (Auto) Lymph # [place] # Lymph # (Auto) [place] # (Auto) Seg Neutrophils % Seg Neuts % (Manual) Lymphocytes % (Manual) Seg Neutrophils # Seg Neutrophils # Man Lymphocytes # (Manual) Monocytes % (Manual) Eosinophils % (Manual) Monocytes # (Manual) Eosinophils # (Manual) D-Dimer Heparin Anti-Xa Level ABG pH POC ABG pCO2 POC ABG pO2 ABG pO2 ABG HCO3 ABG O2 Saturation ABG Base Excess ABG Hemoglobin ABG Oxyhemoglobin VBG pH Oxyhemoglobin Sodium Potassium Chloride 110.2 H Carbon Dioxide 18 L BUN 32 H Creatinine 1.4 H Glucose 180 H POC Glucose 147 H Lactic Acid Calcium Ferritin AST Alkaline Phosphatase Magnesium Lactate Dehydrogenase Total Creatine Kinase CK-MB (CK-2) C-Reactive Protein Total Protein Albumin Troponin T HDL Cholesterol Urine WBC (Auto) Urine Creatinine Urine Total Protein Coronavirus (PCR) Crossmatch 05/30/20 05/30/20 05/30/20 00:08 00:12 04:15 WBC RBC Hgb Hct MCHC RDW Lymph % (Auto) [place] % (Auto) Eos % (Auto) Lymph # [place] # Lymph # (Auto) [place] # (Auto) Seg Neutrophils % Seg Neuts % (Manual) Lymphocytes % (Manual) Seg Neutrophils # Seg Neutrophils # Man Lymphocytes # (Manual) Monocytes % (Manual) Eosinophils % (Manual) Monocytes # (Manual) Eosinophils # (Manual) D-Dimer Heparin Anti-Xa Level 0.71 H ABG pH 7.460 H POC ABG pCO2 POC ABG pO2 ABG pO2 106.0 H ABG HCO3 18.9 L ABG O2 Saturation ABG Base Excess -4.4 L ABG Hemoglobin 6.8 L ABG Oxyhemoglobin VBG pH Oxyhemoglobin Sodium Potassium Chloride Carbon Dioxide BUN Creatinine Glucose POC Glucose 195 H Lactic Acid Calcium Ferritin AST Alkaline Phosphatase Magnesium Lactate Dehydrogenase Total Creatine Kinase CK-MB (CK-2) C-Reactive Protein Total Protein Albumin Troponin T HDL Cholesterol Urine WBC (Auto) Urine Creatinine Urine Total Protein Coronavirus (PCR) Crossmatch 05/30/20 05/30/20 05/30/20 06:07 08:37 12:33 WBC RBC Hgb Hct MCHC RDW Lymph % (Auto) [place] % (Auto) Eos % (Auto) Lymph # [place] # Lymph # (Auto) [place] # (Auto) Seg Neutrophils % Seg Neuts % (Manual) Lymphocytes % (Manual) Seg Neutrophils # Seg Neutrophils # Man Lymphocytes # (Manual) Monocytes % (Manual) Eosinophils % (Manual) Monocytes # (Manual) Eosinophils # (Manual) D-Dimer Heparin Anti-Xa Level 0.85 H ABG pH POC ABG pCO2 POC ABG pO2 ABG pO2 ABG HCO3 ABG O2 Saturation ABG Base Excess ABG Hemoglobin ABG Oxyhemoglobin VBG pH Oxyhemoglobin Sodium Potassium Chloride Carbon Dioxide BUN Creatinine Glucose POC Glucose 182 H 187 H Lactic Acid Calcium Ferritin AST Alkaline Phosphatase Magnesium Lactate Dehydrogenase Total Creatine Kinase CK-MB (CK-2) C-Reactive Protein Total Protein Albumin Troponin T HDL Cholesterol Urine WBC (Auto) Urine Creatinine Urine Total Protein Coronavirus (PCR) Crossmatch 05/30/20 05/30/20 05/30/20 15:58 17:57 23:36 WBC RBC Hgb Hct MCHC RDW Lymph % (Auto) [place] % (Auto) Eos % (Auto) Lymph # [place] # Lymph # (Auto) [place] # (Auto) Seg Neutrophils % Seg Neuts % (Manual) Lymphocytes % (Manual) Seg Neutrophils # Seg Neutrophils # Man Lymphocytes # (Manual) Monocytes % (Manual) Eosinophils % (Manual) Monocytes # (Manual) Eosinophils # (Manual) D-Dimer Heparin Anti-Xa Level 1.03 H ABG pH POC ABG pCO2 POC ABG pO2 ABG pO2 ABG HCO3 ABG O2 Saturation ABG Base Excess ABG Hemoglobin ABG Oxyhemoglobin VBG pH Oxyhemoglobin Sodium Potassium Chloride Carbon Dioxide BUN Creatinine Glucose POC Glucose 208 H 185 H Lactic Acid Calcium Ferritin AST Alkaline Phosphatase Magnesium Lactate Dehydrogenase Total Creatine Kinase CK-MB (CK-2) C-Reactive Protein Total Protein Albumin Troponin T HDL Cholesterol Urine WBC (Auto) Urine Creatinine Urine Total Protein Coronavirus (PCR) Crossmatch 05/31/20 05/31/20 05/31/20 02:16 03:55 06:16 WBC RBC Hgb 9.2 L Hct 27.5 L MCHC RDW Lymph % (Auto) [place] % (Auto) Eos % (Auto) Lymph # [place] # Lymph # (Auto) [place] # (Auto) Seg Neutrophils % Seg Neuts % (Manual) Lymphocytes % (Manual) Seg Neutrophils # Seg Neutrophils # Man Lymphocytes # (Manual) Monocytes % (Manual) Eosinophils % (Manual) Monocytes # (Manual) Eosinophils # (Manual) D-Dimer Heparin Anti-Xa Level ABG pH POC ABG pCO2 POC ABG pO2 ABG pO2 94.7 H ABG HCO3 18.6 L ABG O2 Saturation ABG Base Excess -5.5 L ABG Hemoglobin 7.9 L ABG Oxyhemoglobin VBG pH Oxyhemoglobin Sodium Potassium Chloride Carbon Dioxide BUN Creatinine Glucose POC Glucose 160 H Lactic Acid Calcium Ferritin AST Alkaline Phosphatase Magnesium Lactate Dehydrogenase Total Creatine Kinase CK-MB (CK-2) C-Reactive Protein Total Protein Albumin Troponin T HDL Cholesterol Urine WBC (Auto) Urine Creatinine Urine Total Protein Coronavirus (PCR) Crossmatch 05/31/20 05/31/20 05/31/20 12:20 13:03 18:13 WBC RBC Hgb Hct MCHC RDW Lymph % (Auto) [place] % (Auto) Eos % (Auto) Lymph # [place] # Lymph # (Auto) [place] # (Auto) Seg Neutrophils % Seg Neuts % (Manual) Lymphocytes % (Manual) Seg Neutrophils # Seg Neutrophils # Man Lymphocytes # (Manual) Monocytes % (Manual) Eosinophils % (Manual) Monocytes # (Manual) Eosinophils # (Manual) D-Dimer Heparin Anti-Xa Level ABG pH POC ABG pCO2 POC ABG pO2 ABG pO2 ABG HCO3 ABG O2 Saturation ABG Base Excess ABG Hemoglobin ABG Oxyhemoglobin VBG pH Oxyhemoglobin Sodium Potassium Chloride Carbon Dioxide 18 L BUN 48 H Creatinine 1.6 H Glucose 115 H POC Glucose 128 H 159 H Lactic Acid Calcium 8.3 L Ferritin AST Alkaline Phosphatase Magnesium Lactate Dehydrogenase Total Creatine Kinase CK-MB (CK-2) C-Reactive Protein Total Protein 5.4 L Albumin 2.4 L Troponin T HDL Cholesterol Urine WBC (Auto) Urine Creatinine Urine Total Protein Coronavirus (PCR) Crossmatch 05/31/20 06/01/20 06/01/20 23:51 04:00 05:48 WBC RBC Hgb Hct MCHC RDW Lymph % (Auto) [place] % (Auto) Eos % (Auto) Lymph # [place] # Lymph # (Auto) [place] # (Auto) Seg Neutrophils % Seg Neuts % (Manual) Lymphocytes % (Manual) Seg Neutrophils # Seg Neutrophils # Man Lymphocytes # (Manual) Monocytes % (Manual) Eosinophils % (Manual) Monocytes # (Manual) Eosinophils # (Manual) D-Dimer Heparin Anti-Xa Level ABG pH POC ABG pCO2 POC ABG pO2 ABG pO2 109.8 H ABG HCO3 18.8 L ABG O2 Saturation ABG Base Excess -5.9 L ABG Hemoglobin 7.8 L ABG Oxyhemoglobin VBG pH Oxyhemoglobin Sodium Potassium Chloride Carbon Dioxide BUN Creatinine Glucose POC Glucose 171 H 133 H Lactic Acid Calcium Ferritin AST Alkaline Phosphatase Magnesium Lactate Dehydrogenase Total Creatine Kinase CK-MB (CK-2) C-Reactive Protein Total Protein Albumin Troponin T HDL Cholesterol Urine WBC (Auto) Urine Creatinine Urine Total Protein Coronavirus (PCR) Crossmatch 06/01/20 06/01/20 06/02/20 12:28 17:29 00:08 WBC RBC Hgb Hct MCHC RDW Lymph % (Auto) [place] % (Auto) Eos % (Auto) Lymph # [place] # Lymph # (Auto) [place] # (Auto) Seg Neutrophils % Seg Neuts % (Manual) Lymphocytes % (Manual) Seg Neutrophils # Seg Neutrophils # Man Lymphocytes # (Manual) Monocytes % (Manual) Eosinophils % (Manual) Monocytes # (Manual) Eosinophils # (Manual) D-Dimer Heparin Anti-Xa Level ABG pH POC ABG pCO2 POC ABG pO2 ABG pO2 ABG HCO3 ABG O2 Saturation ABG Base Excess ABG Hemoglobin ABG Oxyhemoglobin VBG pH Oxyhemoglobin Sodium Potassium Chloride Carbon Dioxide BUN Creatinine Glucose POC Glucose 199 H 209 H 162 H Lactic Acid Calcium Ferritin AST Alkaline Phosphatase Magnesium Lactate Dehydrogenase Total Creatine Kinase CK-MB (CK-2) C-Reactive Protein Total Protein Albumin Troponin T HDL Cholesterol Urine WBC (Auto) Urine Creatinine Urine Total Protein Coronavirus (PCR) Crossmatch 06/02/20 06/02/20 06/02/20 04:20 04:20 04:44 WBC RBC Hgb 10.0 L Hct MCHC RDW Lymph % (Auto) [place] % (Auto) Eos % (Auto) Lymph # [place] # Lymph # (Auto) [place] # (Auto) Seg Neutrophils % Seg Neuts % (Manual) Lymphocytes % (Manual) Seg Neutrophils # Seg Neutrophils # Man Lymphocytes # (Manual) Monocytes % (Manual) Eosinophils % (Manual) Monocytes # (Manual) Eosinophils # (Manual) D-Dimer Heparin Anti-Xa Level 0.10 L ABG pH POC ABG pCO2 POC ABG pO2 ABG pO2 150.6 H ABG HCO3 ABG O2 Saturation ABG Base Excess -4.1 L ABG Hemoglobin 11.8 L ABG Oxyhemoglobin VBG pH Oxyhemoglobin Sodium Potassium Chloride Carbon Dioxide BUN Creatinine Glucose POC Glucose Lactic Acid Calcium Ferritin AST Alkaline Phosphatase Magnesium Lactate Dehydrogenase Total Creatine Kinase CK-MB (CK-2) C-Reactive Protein Total Protein Albumin Troponin T HDL Cholesterol Urine WBC (Auto) Urine Creatinine Urine Total Protein Coronavirus (PCR) Crossmatch 06/02/20 06/02/20 06/02/20 05:53 12:04 13:49 WBC RBC Hgb Hct MCHC RDW Lymph % (Auto) [place] % (Auto) Eos % (Auto) Lymph # [place] # Lymph # (Auto) [place] # (Auto) Seg Neutrophils % Seg Neuts % (Manual) Lymphocytes % (Manual) Seg Neutrophils # Seg Neutrophils # Man Lymphocytes # (Manual) Monocytes % (Manual) Eosinophils % (Manual) Monocytes # (Manual) Eosinophils # (Manual) D-Dimer Heparin Anti-Xa Level 0.28 L ABG pH POC ABG pCO2 POC ABG pO2 ABG pO2 ABG HCO3 ABG O2 Saturation ABG Base Excess ABG Hemoglobin ABG Oxyhemoglobin VBG pH Oxyhemoglobin Sodium Potassium Chloride Carbon Dioxide BUN Creatinine Glucose POC Glucose 149 H 220 H Lactic Acid Calcium Ferritin AST Alkaline Phosphatase Magnesium Lactate Dehydrogenase Total Creatine Kinase CK-MB (CK-2) C-Reactive Protein Total Protein Albumin Troponin T HDL Cholesterol Urine WBC (Auto) Urine Creatinine Urine Total Protein Coronavirus (PCR) Crossmatch 06/02/20 06/02/20 06/03/20 13:49 18:31 00:42 WBC RBC Hgb Hct MCHC RDW Lymph % (Auto) [place] % (Auto) Eos % (Auto) Lymph # [place] # Lymph # (Auto) [place] # (Auto) Seg Neutrophils % Seg Neuts % (Manual) Lymphocytes % (Manual) Seg Neutrophils # Seg Neutrophils # Man Lymphocytes # (Manual) Monocytes % (Manual) Eosinophils % (Manual) Monocytes # (Manual) Eosinophils # (Manual) D-Dimer 769.68 H Heparin Anti-Xa Level ABG pH POC ABG pCO2 POC ABG pO2 ABG pO2 ABG HCO3 ABG O2 Saturation ABG Base Excess ABG Hemoglobin ABG Oxyhemoglobin VBG pH Oxyhemoglobin Sodium Potassium Chloride Carbon Dioxide BUN Creatinine Glucose POC Glucose 225 H 212 H Lactic Acid Calcium Ferritin AST Alkaline Phosphatase Magnesium Lactate Dehydrogenase Total Creatine Kinase CK-MB (CK-2) C-Reactive Protein Total Protein Albumin Troponin T HDL Cholesterol Urine WBC (Auto) Urine Creatinine Urine Total Protein Coronavirus (PCR) Crossmatch 06/03/20 06/03/20 06/03/20 05:16 05:16 05:25 WBC 11.4 H RBC Hgb Hct MCHC RDW 16.4 H Lymph % (Auto) [place] % (Auto) Eos % (Auto) Lymph # [place] # Lymph # (Auto) [place] # (Auto) Seg Neutrophils % Seg Neuts % (Manual) Lymphocytes % (Manual) Seg Neutrophils # Seg Neutrophils # Man Lymphocytes # (Manual) Monocytes % (Manual) Eosinophils % (Manual) Monocytes # (Manual) Eosinophils # (Manual) D-Dimer Heparin Anti-Xa Level ABG pH POC ABG pCO2 POC ABG pO2 ABG pO2 160.9 H ABG HCO3 19.4 L ABG O2 Saturation ABG Base Excess -4.9 L ABG Hemoglobin 7.0 L ABG Oxyhemoglobin VBG pH Oxyhemoglobin Sodium Potassium Chloride Carbon Dioxide 18 L BUN 65 H Creatinine 2.0 H Glucose 175 H POC Glucose Lactic Acid Calcium 8.0 L Ferritin AST Alkaline Phosphatase Magnesium Lactate Dehydrogenase Total Creatine Kinase CK-MB (CK-2) C-Reactive Protein Total Protein 5.5 L Albumin 2.2 L Troponin T HDL Cholesterol Urine WBC (Auto) Urine Creatinine Urine Total Protein Coronavirus (PCR) Crossmatch 06/03/20 06/03/20 06/03/20 06:07 11:58 18:24 WBC RBC Hgb Hct MCHC RDW Lymph % (Auto) [place] % (Auto) Eos % (Auto) Lymph # [place] # Lymph # (Auto) [place] # (Auto) Seg Neutrophils % Seg Neuts % (Manual) Lymphocytes % (Manual) Seg Neutrophils # Seg Neutrophils # Man Lymphocytes # (Manual) Monocytes % (Manual) Eosinophils % (Manual) Monocytes # (Manual) Eosinophils # (Manual) D-Dimer Heparin Anti-Xa Level ABG pH POC ABG pCO2 POC ABG pO2 ABG pO2 ABG HCO3 ABG O2 Saturation ABG Base Excess ABG Hemoglobin ABG Oxyhemoglobin VBG pH Oxyhemoglobin Sodium Potassium Chloride Carbon Dioxide BUN Creatinine Glucose POC Glucose 177 H 163 H 211 H Lactic Acid Calcium Ferritin AST Alkaline Phosphatase Magnesium Lactate Dehydrogenase Total Creatine Kinase CK-MB (CK-2) C-Reactive Protein Total Protein Albumin Troponin T HDL Cholesterol Urine WBC (Auto) Urine Creatinine Urine Total Protein Coronavirus (PCR) Crossmatch 06/03/20 06/03/20 06/04/20 21:50 Unknown 00:26 WBC RBC Hgb Hct MCHC RDW Lymph % (Auto) [place] % (Auto) Eos % (Auto) Lymph # [place] # Lymph # (Auto) [place] # (Auto) Seg Neutrophils % Seg Neuts % (Manual) Lymphocytes % (Manual) Seg Neutrophils # Seg Neutrophils # Man Lymphocytes # (Manual) Monocytes % (Manual) Eosinophils % (Manual) Monocytes # (Manual) Eosinophils # (Manual) D-Dimer Heparin Anti-Xa Level ABG pH POC ABG pCO2 POC ABG pO2 ABG pO2 ABG HCO3 ABG O2 Saturation ABG Base Excess ABG Hemoglobin ABG Oxyhemoglobin VBG pH Oxyhemoglobin Sodium 135 L Potassium Chloride Carbon Dioxide 18 L BUN Creatinine Glucose POC Glucose 241 H Lactic Acid Calcium Ferritin AST Alkaline Phosphatase Magnesium Lactate Dehydrogenase Total Creatine Kinase CK-MB (CK-2) C-Reactive Protein Total Protein Albumin Troponin T HDL Cholesterol Urine WBC (Auto) 11.0 H Urine Creatinine Urine Total Protein Coronavirus (PCR) Crossmatch 06/04/20 06/04/20 06/04/20 03:35 04:19 04:19 WBC RBC 3.15 L Hgb 8.9 L Hct 26.8 L D MCHC RDW 15.9 H Lymph % (Auto) 6.0 L [place] % (Auto) Eos % (Auto) Lymph # 0.6 L [place] # Lymph # (Auto) [place] # (Auto) Seg Neutrophils % 86.6 H Seg Neuts % (Manual) Lymphocytes % (Manual) Seg Neutrophils # 9.1 H Seg Neutrophils # Man Lymphocytes # (Manual) Monocytes % (Manual) Eosinophils % (Manual) Monocytes # (Manual) Eosinophils # (Manual) D-Dimer Heparin Anti-Xa Level ABG pH 7.331 L POC ABG pCO2 POC ABG pO2 ABG pO2 ABG HCO3 ABG O2 Saturation ABG Base Excess -4.7 L ABG Hemoglobin 11.0 L ABG Oxyhemoglobin VBG pH Oxyhemoglobin 93.9 L Sodium 136 L Potassium Chloride Carbon Dioxide 20 L BUN 73 H Creatinine 2.0 H Glucose 192 H POC Glucose Lactic Acid Calcium 8.0 L Ferritin AST Alkaline Phosphatase Magnesium Lactate Dehydrogenase 271 H Total Creatine Kinase CK-MB (CK-2) C-Reactive Protein 2.20 H Total Protein 5.0 L Albumin 2.0 L Troponin T HDL Cholesterol Urine WBC (Auto) Urine Creatinine Urine Total Protein Coronavirus (PCR) Crossmatch 06/04/20 06/04/20 06/04/20 04:19 05:51 11:48 WBC RBC Hgb Hct MCHC RDW Lymph % (Auto) [place] % (Auto) Eos % (Auto) Lymph # [place] # Lymph # (Auto) [place] # (Auto) Seg Neutrophils % Seg Neuts % (Manual) Lymphocytes % (Manual) Seg Neutrophils # Seg Neutrophils # Man Lymphocytes # (Manual) Monocytes % (Manual) Eosinophils % (Manual) Monocytes # (Manual) Eosinophils # (Manual) D-Dimer 414.52 H Heparin Anti-Xa Level ABG pH POC ABG pCO2 POC ABG pO2 ABG pO2 ABG HCO3 ABG O2 Saturation ABG Base Excess ABG Hemoglobin ABG Oxyhemoglobin VBG pH Oxyhemoglobin Sodium Potassium Chloride Carbon Dioxide BUN Creatinine Glucose POC Glucose 179 H 213 H Lactic Acid Calcium Ferritin AST Alkaline Phosphatase Magnesium Lactate Dehydrogenase Total Creatine Kinase CK-MB (CK-2) C-Reactive Protein Total Protein Albumin Troponin T HDL Cholesterol Urine WBC (Auto) Urine Creatinine Urine Total Protein Coronavirus (PCR) Crossmatch 06/04/20 06/05/20 06/05/20 18:25 00:16 05:00 WBC RBC Hgb Hct MCHC RDW Lymph % (Auto) [place] % (Auto) Eos % (Auto) Lymph # [place] # Lymph # (Auto) [place] # (Auto) Seg Neutrophils % Seg Neuts % (Manual) Lymphocytes % (Manual) Seg Neutrophils # Seg Neutrophils # Man Lymphocytes # (Manual) Monocytes % (Manual) Eosinophils % (Manual) Monocytes # (Manual) Eosinophils # (Manual) D-Dimer Heparin Anti-Xa Level ABG pH 7.286 L POC ABG pCO2 POC ABG pO2 ABG pO2 96.2 H ABG HCO3 ABG O2 Saturation ABG Base Excess -6.3 L ABG Hemoglobin 8.8 L ABG Oxyhemoglobin VBG pH Oxyhemoglobin 94.8 L Sodium Potassium Chloride Carbon Dioxide BUN Creatinine Glucose POC Glucose 238 H 183 H Lactic Acid Calcium Ferritin AST Alkaline Phosphatase Magnesium Lactate Dehydrogenase Total Creatine Kinase CK-MB (CK-2) C-Reactive Protein Total Protein Albumin Troponin T HDL Cholesterol Urine WBC (Auto) Urine Creatinine Urine Total Protein Coronavirus (PCR) Crossmatch 06/05/20 06/05/20 06/05/20 05:39 07:25 07:25 WBC RBC 2.97 L Hgb 8.7 L Hct 25.7 L MCHC RDW 16.0 H Lymph % (Auto) 8.8 L [place] % (Auto) 13.3 H Eos % (Auto) Lymph # 0.8 L [place] # 1.3 H Lymph # (Auto) [place] # (Auto) Seg Neutrophils % 77.3 H Seg Neuts % (Manual) Lymphocytes % (Manual) Seg Neutrophils # Seg Neutrophils # Man Lymphocytes # (Manual) Monocytes % (Manual) Eosinophils % (Manual) Monocytes # (Manual) Eosinophils # (Manual) D-Dimer Heparin Anti-Xa Level ABG pH POC ABG pCO2 POC ABG pO2 ABG pO2 ABG HCO3 ABG O2 Saturation ABG Base Excess ABG Hemoglobin ABG Oxyhemoglobin VBG pH Oxyhemoglobin Sodium 133 L Potassium Chloride Carbon Dioxide 17 L BUN 89 H Creatinine 2.8 H Glucose 176 H POC Glucose 149 H Lactic Acid Calcium 7.7 L Ferritin AST Alkaline Phosphatase Magnesium Lactate Dehydrogenase Total Creatine Kinase CK-MB (CK-2) C-Reactive Protein Total Protein 4.2 L Albumin 1.9 L Troponin T HDL Cholesterol Urine WBC (Auto) Urine Creatinine Urine Total Protein Coronavirus (PCR) Crossmatch 06/05/20 06/05/20 06/05/20 07:25 12:05 15:41 WBC RBC Hgb Hct MCHC RDW Lymph % (Auto) [place] % (Auto) Eos % (Auto) Lymph # [place] # Lymph # (Auto) [place] # (Auto) Seg Neutrophils % Seg Neuts % (Manual) Lymphocytes % (Manual) Seg Neutrophils # Seg Neutrophils # Man Lymphocytes # (Manual) Monocytes % (Manual) Eosinophils % (Manual) Monocytes # (Manual) Eosinophils # (Manual) D-Dimer Heparin Anti-Xa Level 0.76 H 0.81 H ABG pH POC ABG pCO2 POC ABG pO2 ABG pO2 ABG HCO3 ABG O2 Saturation ABG Base Excess ABG Hemoglobin ABG Oxyhemoglobin VBG pH Oxyhemoglobin Sodium Potassium Chloride Carbon Dioxide BUN Creatinine Glucose POC Glucose 198 H Lactic Acid Calcium Ferritin AST Alkaline Phosphatase Magnesium Lactate Dehydrogenase Total Creatine Kinase CK-MB (CK-2) C-Reactive Protein Total Protein Albumin Troponin T HDL Cholesterol Urine WBC (Auto) Urine Creatinine Urine Total Protein Coronavirus (PCR) Crossmatch 06/05/20 06/05/20 06/06/20 18:08 23:25 04:00 WBC RBC Hgb Hct MCHC RDW Lymph % (Auto) [place] % (Auto) Eos % (Auto) Lymph # [place] # Lymph # (Auto) [place] # (Auto) Seg Neutrophils % Seg Neuts % (Manual) Lymphocytes % (Manual) Seg Neutrophils # Seg Neutrophils # Man Lymphocytes # (Manual) Monocytes % (Manual) Eosinophils % (Manual) Monocytes # (Manual) Eosinophils # (Manual) D-Dimer Heparin Anti-Xa Level ABG pH POC ABG pCO2 POC ABG pO2 ABG pO2 ABG HCO3 ABG O2 Saturation ABG Base Excess ABG Hemoglobin ABG Oxyhemoglobin VBG pH Oxyhemoglobin Sodium Potassium Chloride Carbon Dioxide BUN Creatinine Glucose POC Glucose 223 H 169 H Lactic Acid Calcium Ferritin AST Alkaline Phosphatase Magnesium Lactate Dehydrogenase Total Creatine Kinase CK-MB (CK-2) C-Reactive Protein Total Protein Albumin Troponin T HDL Cholesterol Urine WBC (Auto) 15.0 H Urine Creatinine Urine Total Protein Coronavirus (PCR) Crossmatch 06/06/20 06/06/20 06/06/20 04:00 05:33 05:38 WBC RBC 2.97 L Hgb 8.7 L Hct 26.8 L MCHC RDW 16.8 H Lymph % (Auto) [place] % (Auto) Eos % (Auto) Lymph # [place] # Lymph # (Auto) [place] # (Auto) Seg Neutrophils % Seg Neuts % (Manual) Lymphocytes % (Manual) Seg Neutrophils # Seg Neutrophils # Man Lymphocytes # (Manual) Monocytes % (Manual) Eosinophils % (Manual) Monocytes # (Manual) Eosinophils # (Manual) D-Dimer Heparin Anti-Xa Level ABG pH POC ABG pCO2 POC ABG pO2 ABG pO2 ABG HCO3 ABG O2 Saturation ABG Base Excess ABG Hemoglobin ABG Oxyhemoglobin VBG pH Oxyhemoglobin Sodium Potassium Chloride Carbon Dioxide BUN Creatinine Glucose POC Glucose 186 H Lactic Acid Calcium Ferritin AST Alkaline Phosphatase Magnesium Lactate Dehydrogenase Total Creatine Kinase CK-MB (CK-2) C-Reactive Protein Total Protein Albumin Troponin T HDL Cholesterol Urine WBC (Auto) Urine Creatinine 82.2 H Urine Total Protein 196 H Coronavirus (PCR) Crossmatch 06/06/20 06/06/20 06/06/20 05:38 12:25 17:03 WBC RBC Hgb Hct MCHC RDW Lymph % (Auto) [place] % (Auto) Eos % (Auto) Lymph # [place] # Lymph # (Auto) [place] # (Auto) Seg Neutrophils % Seg Neuts % (Manual) Lymphocytes % (Manual) Seg Neutrophils # Seg Neutrophils # Man Lymphocytes # (Manual) Monocytes % (Manual) Eosinophils % (Manual) Monocytes # (Manual) Eosinophils # (Manual) D-Dimer Heparin Anti-Xa Level ABG pH POC ABG pCO2 POC ABG pO2 ABG pO2 ABG HCO3 ABG O2 Saturation ABG Base Excess ABG Hemoglobin ABG Oxyhemoglobin VBG pH Oxyhemoglobin Sodium 134 L Potassium 5.2 H Chloride Carbon Dioxide 18 L BUN 97 H Creatinine 2.5 H Glucose 193 H POC Glucose 239 H 252 H Lactic Acid Calcium 7.5 L Ferritin AST Alkaline Phosphatase Magnesium Lactate Dehydrogenase Total Creatine Kinase CK-MB (CK-2) C-Reactive Protein Total Protein 4.1 L Albumin 1.9 L Troponin T HDL Cholesterol Urine WBC (Auto) Urine Creatinine Urine Total Protein Coronavirus (PCR) Crossmatch 06/07/20 06/07/20 06/07/20 00:16 01:49 04:00 WBC RBC 2.91 L Hgb 8.4 L Hct 25.0 L MCHC RDW 16.1 H Lymph % (Auto) 5.7 L [place] % (Auto) 10.5 H Eos % (Auto) Lymph # 0.6 L [place] # 1.1 H Lymph # (Auto) [place] # (Auto) Seg Neutrophils % 83.6 H Seg Neuts % (Manual) Lymphocytes % (Manual) Seg Neutrophils # 9.1 H Seg Neutrophils # Man Lymphocytes # (Manual) Monocytes % (Manual) Eosinophils % (Manual) Monocytes # (Manual) Eosinophils # (Manual) D-Dimer Heparin Anti-Xa Level 0.26 L ABG pH POC ABG pCO2 POC ABG pO2 ABG pO2 ABG HCO3 ABG O2 Saturation ABG Base Excess ABG Hemoglobin ABG Oxyhemoglobin VBG pH Oxyhemoglobin Sodium Potassium Chloride Carbon Dioxide BUN Creatinine Glucose POC Glucose 173 H Lactic Acid Calcium Ferritin AST Alkaline Phosphatase Magnesium Lactate Dehydrogenase Total Creatine Kinase CK-MB (CK-2) C-Reactive Protein Total Protein Albumin Troponin T HDL Cholesterol Urine WBC (Auto) Urine Creatinine Urine Total Protein Coronavirus (PCR) Crossmatch 06/07/20 06/07/20 06/07/20 04:00 04:54 05:51 WBC RBC Hgb Hct MCHC RDW Lymph % (Auto) [place] % (Auto) Eos % (Auto) Lymph # [place] # Lymph # (Auto) [place] # (Auto) Seg Neutrophils % Seg Neuts % (Manual) Lymphocytes % (Manual) Seg Neutrophils # Seg Neutrophils # Man Lymphocytes # (Manual) Monocytes % (Manual) Eosinophils % (Manual) Monocytes # (Manual) Eosinophils # (Manual) D-Dimer Heparin Anti-Xa Level ABG pH 7.317 L POC ABG pCO2 POC ABG pO2 ABG pO2 71.4 L ABG HCO3 ABG O2 Saturation 94.3 L ABG Base Excess -4.8 L ABG Hemoglobin 7.1 L ABG Oxyhemoglobin VBG pH Oxyhemoglobin 92.2 L Sodium 133 L Potassium Chloride Carbon Dioxide 18 L BUN 100 H Creatinine 2.5 H Glucose 158 H POC Glucose 168 H Lactic Acid Calcium 7.6 L Ferritin AST Alkaline Phosphatase Magnesium Lactate Dehydrogenase Total Creatine Kinase CK-MB (CK-2) C-Reactive Protein Total Protein 4.7 L Albumin 2.0 L Troponin T HDL Cholesterol Urine WBC (Auto) Urine Creatinine Urine Total Protein Coronavirus (PCR) Crossmatch 06/07/20 06/07/20 06/07/20 12:03 17:17 20:10 WBC RBC Hgb Hct MCHC RDW Lymph % (Auto) [place] % (Auto) Eos % (Auto) Lymph # [place] # Lymph # (Auto) [place] # (Auto) Seg Neutrophils % Seg Neuts % (Manual) Lymphocytes % (Manual) Seg Neutrophils # Seg Neutrophils # Man Lymphocytes # (Manual) Monocytes % (Manual) Eosinophils % (Manual) Monocytes # (Manual) Eosinophils # (Manual) D-Dimer Heparin Anti-Xa Level 0.17 L ABG pH POC ABG pCO2 POC ABG pO2 ABG pO2 ABG HCO3 ABG O2 Saturation ABG Base Excess ABG Hemoglobin ABG Oxyhemoglobin VBG pH Oxyhemoglobin Sodium Potassium Chloride Carbon Dioxide BUN Creatinine Glucose POC Glucose 276 H 281 H Lactic Acid Calcium Ferritin AST Alkaline Phosphatase Magnesium Lactate Dehydrogenase Total Creatine Kinase CK-MB (CK-2) C-Reactive Protein Total Protein Albumin Troponin T HDL Cholesterol Urine WBC (Auto) Urine Creatinine Urine Total Protein Coronavirus (PCR) Crossmatch 06/08/20 06/08/20 06/08/20 00:02 04:47 04:47 WBC 16.4 H RBC 3.07 L Hgb 8.6 L Hct 26.5 L MCHC RDW 16.3 H Lymph % (Auto) [place] % (Auto) Eos % (Auto) Lymph # [place] # Lymph # (Auto) [place] # (Auto) Seg Neutrophils % Seg Neuts % (Manual) 90.0 H Lymphocytes % (Manual) 3.0 L Seg Neutrophils # Seg Neutrophils # Man 14.8 H Lymphocytes # (Manual) 0.5 L Monocytes % (Manual) Eosinophils % (Manual) Monocytes # (Manual) 1.1 H Eosinophils # (Manual) D-Dimer Heparin Anti-Xa Level ABG pH POC ABG pCO2 POC ABG pO2 ABG pO2 ABG HCO3 ABG O2 Saturation ABG Base Excess ABG Hemoglobin ABG Oxyhemoglobin VBG pH Oxyhemoglobin Sodium 129 L Potassium Chloride 95.6 L Carbon Dioxide 17 L BUN 106 H Creatinine 2.5 H Glucose 213 H POC Glucose 242 H Lactic Acid Calcium 7.6 L Ferritin AST Alkaline Phosphatase Magnesium Lactate Dehydrogenase Total Creatine Kinase CK-MB (CK-2) C-Reactive Protein Total Protein 5.0 L Albumin 2.1 L Troponin T HDL Cholesterol Urine WBC (Auto) Urine Creatinine Urine Total Protein Coronavirus (PCR) Crossmatch 06/08/20 06/08/20 06/08/20 05:40 11:55 17:54 WBC RBC Hgb Hct MCHC RDW Lymph % (Auto) [place] % (Auto) Eos % (Auto) Lymph # [place] # Lymph # (Auto) [place] # (Auto) Seg Neutrophils % Seg Neuts % (Manual) Lymphocytes % (Manual) Seg Neutrophils # Seg Neutrophils # Man Lymphocytes # (Manual) Monocytes % (Manual) Eosinophils % (Manual) Monocytes # (Manual) Eosinophils # (Manual) D-Dimer Heparin Anti-Xa Level ABG pH POC ABG pCO2 POC ABG pO2 ABG pO2 ABG HCO3 ABG O2 Saturation ABG Base Excess ABG Hemoglobin ABG Oxyhemoglobin VBG pH Oxyhemoglobin Sodium Potassium Chloride Carbon Dioxide BUN Creatinine Glucose POC Glucose 221 H 218 H 163 H Lactic Acid Calcium Ferritin AST Alkaline Phosphatase Magnesium Lactate Dehydrogenase Total Creatine Kinase CK-MB (CK-2) C-Reactive Protein Total Protein Albumin Troponin T HDL Cholesterol Urine WBC (Auto) Urine Creatinine Urine Total Protein Coronavirus (PCR) Crossmatch 06/08/20 06/09/20 06/09/20 22:01 00:09 05:16 WBC 19.0 H RBC 3.35 L Hgb 9.2 L Hct 28.5 L MCHC RDW 16.3 H Lymph % (Auto) [place] % (Auto) Eos % (Auto) Lymph # [place] # Lymph # (Auto) [place] # (Auto) Seg Neutrophils % Seg Neuts % (Manual) 85.0 H Lymphocytes % (Manual) 7.0 L Seg Neutrophils # Seg Neutrophils # Man 16.2 H Lymphocytes # (Manual) Monocytes % (Manual) Eosinophils % (Manual) Monocytes # (Manual) 1.3 H Eosinophils # (Manual) D-Dimer Heparin Anti-Xa Level ABG pH POC ABG pCO2 POC ABG pO2 ABG pO2 ABG HCO3 ABG O2 Saturation ABG Base Excess ABG Hemoglobin ABG Oxyhemoglobin VBG pH Oxyhemoglobin Sodium Potassium Chloride Carbon Dioxide BUN Creatinine Glucose POC Glucose 182 H 150 H Lactic Acid Calcium Ferritin AST Alkaline Phosphatase Magnesium Lactate Dehydrogenase Total Creatine Kinase CK-MB (CK-2) C-Reactive Protein Total Protein Albumin Troponin T HDL Cholesterol Urine WBC (Auto) Urine Creatinine Urine Total Protein Coronavirus (PCR) Crossmatch 06/09/20 06/09/20 06/09/20 05:16 05:24 11:29 WBC RBC Hgb Hct MCHC RDW Lymph % (Auto) [place] % (Auto) Eos % (Auto) Lymph # [place] # Lymph # (Auto) [place] # (Auto) Seg Neutrophils % Seg Neuts % (Manual) Lymphocytes % (Manual) Seg Neutrophils # Seg Neutrophils # Man Lymphocytes # (Manual) Monocytes % (Manual) Eosinophils % (Manual) Monocytes # (Manual) Eosinophils # (Manual) D-Dimer Heparin Anti-Xa Level ABG pH POC ABG pCO2 POC ABG pO2 ABG pO2 ABG HCO3 ABG O2 Saturation ABG Base Excess ABG Hemoglobin ABG Oxyhemoglobin VBG pH Oxyhemoglobin Sodium 133 L Potassium Chloride Carbon Dioxide 19 L BUN 109 H Creatinine 2.1 H Glucose 133 H POC Glucose 128 H 119 H Lactic Acid Calcium 7.7 L Ferritin AST Alkaline Phosphatase < 5 L Magnesium Lactate Dehydrogenase Total Creatine Kinase CK-MB (CK-2) C-Reactive Protein Total Protein 4.6 L Albumin < 0.2 L Troponin T HDL Cholesterol Urine WBC (Auto) Urine Creatinine Urine Total Protein Coronavirus (PCR) Crossmatch 06/09/20 06/10/20 06/10/20 17:32 00:00 05:49 WBC RBC Hgb Hct MCHC RDW Lymph % (Auto) [place] % (Auto) Eos % (Auto) Lymph # [place] # Lymph # (Auto) [place] # (Auto) Seg Neutrophils % Seg Neuts % (Manual) Lymphocytes % (Manual) Seg Neutrophils # Seg Neutrophils # Man Lymphocytes # (Manual) Monocytes % (Manual) Eosinophils % (Manual) Monocytes # (Manual) Eosinophils # (Manual) D-Dimer Heparin Anti-Xa Level 0.19 L ABG pH POC ABG pCO2 POC ABG pO2 ABG pO2 ABG HCO3 ABG O2 Saturation ABG Base Excess ABG Hemoglobin ABG Oxyhemoglobin VBG pH Oxyhemoglobin Sodium Potassium Chloride Carbon Dioxide BUN Creatinine Glucose POC Glucose 106 H 117 H Lactic Acid Calcium Ferritin AST Alkaline Phosphatase Magnesium Lactate Dehydrogenase Total Creatine Kinase CK-MB (CK-2) C-Reactive Protein Total Protein Albumin Troponin T HDL Cholesterol Urine WBC (Auto) Urine Creatinine Urine Total Protein Coronavirus (PCR) Crossmatch 06/10/20 06/10/20 06/10/20 05:54 07:40 11:40 WBC RBC Hgb Hct MCHC RDW Lymph % (Auto) [place] % (Auto) Eos % (Auto) Lymph # [place] # Lymph # (Auto) [place] # (Auto) Seg Neutrophils % Seg Neuts % (Manual) Lymphocytes % (Manual) Seg Neutrophils # Seg Neutrophils # Man Lymphocytes # (Manual) Monocytes % (Manual) Eosinophils % (Manual) Monocytes # (Manual) Eosinophils # (Manual) D-Dimer Heparin Anti-Xa Level ABG pH POC ABG pCO2 POC ABG pO2 ABG pO2 ABG HCO3 ABG O2 Saturation ABG Base Excess ABG Hemoglobin ABG Oxyhemoglobin VBG pH Oxyhemoglobin Sodium 146 H D Potassium Chloride Carbon Dioxide 20 L BUN 99 H Creatinine 1.9 H Glucose 121 H POC Glucose 127 H 138 H Lactic Acid Calcium 8.2 L Ferritin AST Alkaline Phosphatase Magnesium Lactate Dehydrogenase Total Creatine Kinase CK-MB (CK-2) C-Reactive Protein Total Protein Albumin Troponin T HDL Cholesterol Urine WBC (Auto) Urine Creatinine Urine Total Protein Coronavirus (PCR) Crossmatch 06/10/20 06/10/20 06/10/20 14:44 17:31 23:22 WBC RBC Hgb Hct MCHC RDW Lymph % (Auto) [place] % (Auto) Eos % (Auto) Lymph # [place] # Lymph # (Auto) [place] # (Auto) Seg Neutrophils % Seg Neuts % (Manual) Lymphocytes % (Manual) Seg Neutrophils # Seg Neutrophils # Man Lymphocytes # (Manual) Monocytes % (Manual) Eosinophils % (Manual) Monocytes # (Manual) Eosinophils # (Manual) D-Dimer Heparin Anti-Xa Level 0.17 L ABG pH POC ABG pCO2 POC ABG pO2 ABG pO2 ABG HCO3 ABG O2 Saturation ABG Base Excess ABG Hemoglobin ABG Oxyhemoglobin VBG pH Oxyhemoglobin Sodium Potassium Chloride Carbon Dioxide BUN Creatinine Glucose POC Glucose 128 H 114 H Lactic Acid Calcium Ferritin AST Alkaline Phosphatase Magnesium Lactate Dehydrogenase Total Creatine Kinase CK-MB (CK-2) C-Reactive Protein Total Protein Albumin Troponin T HDL Cholesterol Urine WBC (Auto) Urine Creatinine Urine Total Protein Coronavirus (PCR) Crossmatch 06/11/20 06/11/20 06/11/20 00:22 03:45 03:45 WBC 14.6 H RBC 2.77 L Hgb 7.9 L Hct 24.3 L MCHC RDW 16.8 H Lymph % (Auto) 6.6 L [place] % (Auto) 8.5 H Eos % (Auto) Lymph # 1.0 L [place] # 1.2 H Lymph # (Auto) [place] # (Auto) Seg Neutrophils % 82.9 H Seg Neuts % (Manual) Lymphocytes % (Manual) Seg Neutrophils # 12.1 H Seg Neutrophils # Man Lymphocytes # (Manual) Monocytes % (Manual) Eosinophils % (Manual) Monocytes # (Manual) Eosinophils # (Manual) D-Dimer Heparin Anti-Xa Level 0.24 L ABG pH POC ABG pCO2 POC ABG pO2 ABG pO2 ABG HCO3 ABG O2 Saturation ABG Base Excess ABG Hemoglobin ABG Oxyhemoglobin VBG pH Oxyhemoglobin Sodium Potassium Chloride Carbon Dioxide 20 L BUN 88 H Creatinine 1.5 H Glucose 111 H POC Glucose Lactic Acid Calcium 8.2 L Ferritin AST Alkaline Phosphatase Magnesium Lactate Dehydrogenase Total Creatine Kinase CK-MB (CK-2) C-Reactive Protein Total Protein Albumin Troponin T HDL Cholesterol Urine WBC (Auto) Urine Creatinine Urine Total Protein Coronavirus (PCR) Crossmatch 06/11/20 06/11/20 06/11/20 06:03 10:22 11:11 WBC RBC Hgb Hct MCHC RDW Lymph % (Auto) [place] % (Auto) Eos % (Auto) Lymph # [place] # Lymph # (Auto) [place] # (Auto) Seg Neutrophils % Seg Neuts % (Manual) Lymphocytes % (Manual) Seg Neutrophils # Seg Neutrophils # Man Lymphocytes # (Manual) Monocytes % (Manual) Eosinophils % (Manual) Monocytes # (Manual) Eosinophils # (Manual) D-Dimer Heparin Anti-Xa Level 0.26 L ABG pH POC ABG pCO2 POC ABG pO2 ABG pO2 ABG HCO3 ABG O2 Saturation ABG Base Excess ABG Hemoglobin 9.6 L ABG Oxyhemoglobin VBG pH Oxyhemoglobin Sodium Potassium Chloride Carbon Dioxide BUN Creatinine Glucose POC Glucose 114 H Lactic Acid Calcium Ferritin AST Alkaline Phosphatase Magnesium Lactate Dehydrogenase Total Creatine Kinase CK-MB (CK-2) C-Reactive Protein Total Protein Albumin Troponin T HDL Cholesterol Urine WBC (Auto) Urine Creatinine Urine Total Protein Coronavirus (PCR) Crossmatch 06/11/20 06/11/20 06/12/20 12:24 17:24 00:21 WBC RBC Hgb Hct MCHC RDW Lymph % (Auto) [place] % (Auto) Eos % (Auto) Lymph # [place] # Lymph # (Auto) [place] # (Auto) Seg Neutrophils % Seg Neuts % (Manual) Lymphocytes % (Manual) Seg Neutrophils # Seg Neutrophils # Man Lymphocytes # (Manual) Monocytes % (Manual) Eosinophils % (Manual) Monocytes # (Manual) Eosinophils # (Manual) D-Dimer Heparin Anti-Xa Level ABG pH POC ABG pCO2 POC ABG pO2 ABG pO2 ABG HCO3 ABG O2 Saturation ABG Base Excess ABG Hemoglobin ABG Oxyhemoglobin VBG pH Oxyhemoglobin Sodium Potassium Chloride Carbon Dioxide BUN Creatinine Glucose POC Glucose 119 H 126 H 117 H Lactic Acid Calcium Ferritin AST Alkaline Phosphatase Magnesium Lactate Dehydrogenase Total Creatine Kinase CK-MB (CK-2) C-Reactive Protein Total Protein Albumin Troponin T HDL Cholesterol Urine WBC (Auto) Urine Creatinine Urine Total Protein Coronavirus (PCR) Crossmatch 06/12/20 06/12/20 06/12/20 02:46 02:46 05:46 WBC 13.2 H RBC 2.83 L Hgb 8.3 L Hct 24.3 L MCHC RDW 16.6 H Lymph % (Auto) 6.2 L [place] % (Auto) 9.5 H Eos % (Auto) Lymph # 0.8 L [place] # 1.3 H Lymph # (Auto) [place] # (Auto) Seg Neutrophils % 81.9 H Seg Neuts % (Manual) Lymphocytes % (Manual) Seg Neutrophils # 10.9 H Seg Neutrophils # Man Lymphocytes # (Manual) Monocytes % (Manual) Eosinophils % (Manual) Monocytes # (Manual) Eosinophils # (Manual) D-Dimer Heparin Anti-Xa Level ABG pH POC ABG pCO2 POC ABG pO2 ABG pO2 ABG HCO3 ABG O2 Saturation ABG Base Excess ABG Hemoglobin ABG Oxyhemoglobin VBG pH Oxyhemoglobin Sodium Potassium 3.5 L Chloride Carbon Dioxide BUN 77 H Creatinine 1.3 H Glucose POC Glucose 132 H Lactic Acid Calcium 8.3 L Ferritin AST Alkaline Phosphatase Magnesium Lactate Dehydrogenase Total Creatine Kinase CK-MB (CK-2) C-Reactive Protein Total Protein Albumin Troponin T HDL Cholesterol Urine WBC (Auto) Urine Creatinine Urine Total Protein Coronavirus (PCR) Crossmatch 06/12/20 06/12/20 06/12/20 09:20 12:16 17:48 WBC RBC Hgb Hct MCHC RDW Lymph % (Auto) [place] % (Auto) Eos % (Auto) Lymph # [place] # Lymph # (Auto) [place] # (Auto) Seg Neutrophils % Seg Neuts % (Manual) Lymphocytes % (Manual) Seg Neutrophils # Seg Neutrophils # Man Lymphocytes # (Manual) Monocytes % (Manual) Eosinophils % (Manual) Monocytes # (Manual) Eosinophils # (Manual) D-Dimer Heparin Anti-Xa Level ABG pH POC ABG pCO2 POC ABG pO2 ABG pO2 91.1 H ABG HCO3 ABG O2 Saturation ABG Base Excess ABG Hemoglobin ABG Oxyhemoglobin VBG pH Oxyhemoglobin 94.8 L Sodium Potassium Chloride Carbon Dioxide BUN Creatinine Glucose POC Glucose 167 H 182 H Lactic Acid Calcium Ferritin AST Alkaline Phosphatase Magnesium Lactate Dehydrogenase Total Creatine Kinase CK-MB (CK-2) C-Reactive Protein Total Protein Albumin Troponin T HDL Cholesterol Urine WBC (Auto) Urine Creatinine Urine Total Protein Coronavirus (PCR) Crossmatch 06/13/20 06/13/20 06/13/20 00:08 05:37 09:09 WBC RBC Hgb Hct MCHC RDW Lymph % (Auto) [place] % (Auto) Eos % (Auto) Lymph # [place] # Lymph # (Auto) [place] # (Auto) Seg Neutrophils % Seg Neuts % (Manual) Lymphocytes % (Manual) Seg Neutrophils # Seg Neutrophils # Man Lymphocytes # (Manual) Monocytes % (Manual) Eosinophils % (Manual) Monocytes # (Manual) Eosinophils # (Manual) D-Dimer Heparin Anti-Xa Level 0.86 H ABG pH POC ABG pCO2 POC ABG pO2 ABG pO2 ABG HCO3 ABG O2 Saturation ABG Base Excess ABG Hemoglobin ABG Oxyhemoglobin VBG pH Oxyhemoglobin Sodium Potassium Chloride Carbon Dioxide BUN Creatinine Glucose POC Glucose 142 H 119 H Lactic Acid Calcium Ferritin AST Alkaline Phosphatase Magnesium Lactate Dehydrogenase Total Creatine Kinase CK-MB (CK-2) C-Reactive Protein Total Protein Albumin Troponin T HDL Cholesterol Urine WBC (Auto) Urine Creatinine Urine Total Protein Coronavirus (PCR) Crossmatch 06/13/20 06/13/20 06/13/20 12:28 17:55 21:17 WBC RBC Hgb Hct MCHC RDW Lymph % (Auto) [place] % (Auto) Eos % (Auto) Lymph # [place] # Lymph # (Auto) [place] # (Auto) Seg Neutrophils % Seg Neuts % (Manual) Lymphocytes % (Manual) Seg Neutrophils # Seg Neutrophils # Man Lymphocytes # (Manual) Monocytes % (Manual) Eosinophils % (Manual) Monocytes # (Manual) Eosinophils # (Manual) D-Dimer Heparin Anti-Xa Level ABG pH POC ABG pCO2 POC ABG pO2 ABG pO2 ABG HCO3 ABG O2 Saturation ABG Base Excess ABG Hemoglobin ABG Oxyhemoglobin VBG pH Oxyhemoglobin Sodium Potassium Chloride Carbon Dioxide BUN 61 H Creatinine Glucose 131 H POC Glucose 165 H 174 H Lactic Acid Calcium Ferritin AST Alkaline Phosphatase Magnesium Lactate Dehydrogenase Total Creatine Kinase CK-MB (CK-2) C-Reactive Protein Total Protein Albumin Troponin T HDL Cholesterol Urine WBC (Auto) Urine Creatinine Urine Total Protein Coronavirus (PCR) Crossmatch 06/13/20 06/13/20 06/14/20 21:17 23:50 05:34 WBC RBC Hgb Hct MCHC RDW Lymph % (Auto) [place] % (Auto) Eos % (Auto) Lymph # [place] # Lymph # (Auto) [place] # (Auto) Seg Neutrophils % Seg Neuts % (Manual) Lymphocytes % (Manual) Seg Neutrophils # Seg Neutrophils # Man Lymphocytes # (Manual) Monocytes % (Manual) Eosinophils % (Manual) Monocytes # (Manual) Eosinophils # (Manual) D-Dimer Heparin Anti-Xa Level 0.72 H ABG pH POC ABG pCO2 POC ABG pO2 ABG pO2 ABG HCO3 ABG O2 Saturation ABG Base Excess ABG Hemoglobin ABG Oxyhemoglobin VBG pH Oxyhemoglobin Sodium 146 H Potassium Chloride 107.6 H Carbon Dioxide BUN 61 H Creatinine 1.3 H Glucose 135 H POC Glucose 146 H Lactic Acid Calcium Ferritin AST Alkaline Phosphatase Magnesium Lactate Dehydrogenase Total Creatine Kinase CK-MB (CK-2) C-Reactive Protein Total Protein Albumin Troponin T HDL Cholesterol Urine WBC (Auto) Urine Creatinine Urine Total Protein Coronavirus (PCR) Crossmatch 06/14/20 06/14/20 06/14/20 06:11 09:28 11:30 WBC RBC Hgb Hct MCHC RDW Lymph % (Auto) [place] % (Auto) Eos % (Auto) Lymph # [place] # Lymph # (Auto) [place] # (Auto) Seg Neutrophils % Seg Neuts % (Manual) Lymphocytes % (Manual) Seg Neutrophils # Seg Neutrophils # Man Lymphocytes # (Manual) Monocytes % (Manual) Eosinophils % (Manual) Monocytes # (Manual) Eosinophils # (Manual) D-Dimer Heparin Anti-Xa Level 0.90 H ABG pH POC ABG pCO2 POC ABG pO2 ABG pO2 ABG HCO3 ABG O2 Saturation ABG Base Excess ABG Hemoglobin ABG Oxyhemoglobin VBG pH Oxyhemoglobin Sodium Potassium Chloride Carbon Dioxide BUN Creatinine Glucose POC Glucose 141 H 186 H Lactic Acid Calcium Ferritin AST Alkaline Phosphatase Magnesium Lactate Dehydrogenase Total Creatine Kinase CK-MB (CK-2) C-Reactive Protein Total Protein Albumin Troponin T HDL Cholesterol Urine WBC (Auto) Urine Creatinine Urine Total Protein Coronavirus (PCR) Crossmatch 06/14/20 06/14/20 06/14/20 16:07 18:16 23:51 WBC RBC Hgb Hct MCHC RDW Lymph % (Auto) [place] % (Auto) Eos % (Auto) Lymph # [place] # Lymph # (Auto) [place] # (Auto) Seg Neutrophils % Seg Neuts % (Manual) Lymphocytes % (Manual) Seg Neutrophils # Seg Neutrophils # Man Lymphocytes # (Manual) Monocytes % (Manual) Eosinophils % (Manual) Monocytes # (Manual) Eosinophils # (Manual) D-Dimer Heparin Anti-Xa Level 0.82 H ABG pH POC ABG pCO2 POC ABG pO2 ABG pO2 ABG HCO3 ABG O2 Saturation ABG Base Excess ABG Hemoglobin ABG Oxyhemoglobin VBG pH Oxyhemoglobin Sodium Potassium Chloride Carbon Dioxide BUN Creatinine Glucose POC Glucose 106 H 154 H Lactic Acid Calcium Ferritin AST Alkaline Phosphatase Magnesium Lactate Dehydrogenase Total Creatine Kinase CK-MB (CK-2) C-Reactive Protein Total Protein Albumin Troponin T HDL Cholesterol Urine WBC (Auto) Urine Creatinine Urine Total Protein Coronavirus (PCR) Crossmatch 06/15/20 06/15/20 06/15/20 04:24 04:24 05:59 WBC RBC 2.75 L Hgb 7.9 L Hct 24.0 L MCHC RDW 16.4 H Lymph % (Auto) 12.9 L [place] % (Auto) 8.7 H Eos % (Auto) 4.6 H Lymph # 1.1 L [place] # Lymph # (Auto) [place] # (Auto) Seg Neutrophils % 73.2 H Seg Neuts % (Manual) Lymphocytes % (Manual) Seg Neutrophils # Seg Neutrophils # Man Lymphocytes # (Manual) Monocytes % (Manual) Eosinophils % (Manual) Monocytes # (Manual) Eosinophils # (Manual) D-Dimer Heparin Anti-Xa Level ABG pH POC ABG pCO2 POC ABG pO2 ABG pO2 ABG HCO3 ABG O2 Saturation ABG Base Excess ABG Hemoglobin ABG Oxyhemoglobin VBG pH Oxyhemoglobin Sodium Potassium 3.4 L Chloride Carbon Dioxide BUN 55 H Creatinine 1.3 H Glucose 142 H POC Glucose 131 H Lactic Acid Calcium Ferritin AST Alkaline Phosphatase Magnesium Lactate Dehydrogenase Total Creatine Kinase CK-MB (CK-2) C-Reactive Protein Total Protein Albumin Troponin T HDL Cholesterol Urine WBC (Auto) Urine Creatinine Urine Total Protein Coronavirus (PCR) Crossmatch 06/15/20 06/15/20 06/16/20 12:33 17:07 00:22 WBC RBC Hgb Hct MCHC RDW Lymph % (Auto) [place] % (Auto) Eos % (Auto) Lymph # [place] # Lymph # (Auto) [place] # (Auto) Seg Neutrophils % Seg Neuts % (Manual) Lymphocytes % (Manual) Seg Neutrophils # Seg Neutrophils # Man Lymphocytes # (Manual) Monocytes % (Manual) Eosinophils % (Manual) Monocytes # (Manual) Eosinophils # (Manual) D-Dimer Heparin Anti-Xa Level 0.21 L ABG pH POC ABG pCO2 POC ABG pO2 ABG pO2 ABG HCO3 ABG O2 Saturation ABG Base Excess ABG Hemoglobin ABG Oxyhemoglobin VBG pH Oxyhemoglobin Sodium Potassium Chloride Carbon Dioxide BUN Creatinine Glucose POC Glucose 180 H 185 H Lactic Acid Calcium Ferritin AST Alkaline Phosphatase Magnesium Lactate Dehydrogenase Total Creatine Kinase CK-MB (CK-2) C-Reactive Protein Total Protein Albumin Troponin T HDL Cholesterol Urine WBC (Auto) Urine Creatinine Urine Total Protein Coronavirus (PCR) Crossmatch 09/05/2806/16/20 06/16/20 01:45 08:06 09:15 WBC RBC Hgb Hct MCHC RDW Lymph % (Auto) [place] % (Auto) Eos % (Auto) Lymph # [place] # Lymph # (Auto) [place] # (Auto) Seg Neutrophils % Seg Neuts % (Manual) Lymphocytes % (Manual) Seg Neutrophils # Seg Neutrophils # Man Lymphocytes # (Manual) Monocytes % (Manual) Eosinophils % (Manual) Monocytes # (Manual) Eosinophils # (Manual) D-Dimer Heparin Anti-Xa Level ABG pH POC ABG pCO2 POC ABG pO2 ABG pO2 ABG HCO3 ABG O2 Saturation ABG Base Excess ABG Hemoglobin ABG Oxyhemoglobin VBG pH Oxyhemoglobin Sodium Potassium Chloride Carbon Dioxide BUN 49 H Creatinine Glucose 154 H POC Glucose 140 H 171 H Lactic Acid Calcium Ferritin AST Alkaline Phosphatase Magnesium Lactate Dehydrogenase Total Creatine Kinase CK-MB (CK-2) C-Reactive Protein Total Protein Albumin Troponin T HDL Cholesterol Urine WBC (Auto) Urine Creatinine Urine Total Protein Coronavirus (PCR) Crossmatch 06/16/20 06/16/20 06/16/20 10:46 12:33 17:54 WBC RBC Hgb Hct MCHC RDW Lymph % (Auto) [place] % (Auto) Eos % (Auto) Lymph # [place] # Lymph # (Auto) [place] # (Auto) Seg Neutrophils % Seg Neuts % (Manual) Lymphocytes % (Manual) Seg Neutrophils # Seg Neutrophils # Man Lymphocytes # (Manual) Monocytes % (Manual) Eosinophils % (Manual) Monocytes # (Manual) Eosinophils # (Manual) D-Dimer Heparin Anti-Xa Level 0.12 L ABG pH POC ABG pCO2 POC ABG pO2 ABG pO2 ABG HCO3 ABG O2 Saturation ABG Base Excess ABG Hemoglobin ABG Oxyhemoglobin VBG pH Oxyhemoglobin Sodium Potassium Chloride Carbon Dioxide BUN Creatinine Glucose POC Glucose 166 H 151 H Lactic Acid Calcium Ferritin AST Alkaline Phosphatase Magnesium Lactate Dehydrogenase Total Creatine Kinase CK-MB (CK-2) C-Reactive Protein Total Protein Albumin Troponin T HDL Cholesterol Urine WBC (Auto) Urine Creatinine Urine Total Protein Coronavirus (PCR) Crossmatch 06/16/20 06/17/20 06/17/20 18:47 00:00 02:19 WBC RBC Hgb Hct MCHC RDW Lymph % (Auto) [place] % (Auto) Eos % (Auto) Lymph # [place] # Lymph # (Auto) [place] # (Auto) Seg Neutrophils % Seg Neuts % (Manual) Lymphocytes % (Manual) Seg Neutrophils # Seg Neutrophils # Man Lymphocytes # (Manual) Monocytes % (Manual) Eosinophils % (Manual) Monocytes # (Manual) Eosinophils # (Manual) D-Dimer Heparin Anti-Xa Level 0.73 H 0.77 H ABG pH POC ABG pCO2 POC ABG pO2 ABG pO2 ABG HCO3 ABG O2 Saturation ABG Base Excess ABG Hemoglobin ABG Oxyhemoglobin VBG pH Oxyhemoglobin Sodium Potassium Chloride Carbon Dioxide BUN Creatinine Glucose POC Glucose 139 H Lactic Acid Calcium Ferritin AST Alkaline Phosphatase Magnesium Lactate Dehydrogenase Total Creatine Kinase CK-MB (CK-2) C-Reactive Protein Total Protein Albumin Troponin T HDL Cholesterol Urine WBC (Auto) Urine Creatinine Urine Total Protein Coronavirus (PCR) Crossmatch 06/17/20 06/17/20 06/17/20 06:07 11:42 16:43 WBC RBC Hgb Hct MCHC RDW Lymph % (Auto) [place] % (Auto) Eos % (Auto) Lymph # [place] # Lymph # (Auto) [place] # (Auto) Seg Neutrophils % Seg Neuts % (Manual) Lymphocytes % (Manual) Seg Neutrophils # Seg Neutrophils # Man Lymphocytes # (Manual) Monocytes % (Manual) Eosinophils % (Manual) Monocytes # (Manual) Eosinophils # (Manual) D-Dimer Heparin Anti-Xa Level 0.73 H ABG pH POC ABG pCO2 POC ABG pO2 ABG pO2 ABG HCO3 ABG O2 Saturation ABG Base Excess ABG Hemoglobin ABG Oxyhemoglobin VBG pH Oxyhemoglobin Sodium Potassium Chloride Carbon Dioxide BUN Creatinine Glucose POC Glucose 169 H 169 H Lactic Acid Calcium Ferritin AST Alkaline Phosphatase Magnesium Lactate Dehydrogenase Total Creatine Kinase CK-MB (CK-2) C-Reactive Protein Total Protein Albumin Troponin T HDL Cholesterol Urine WBC (Auto) Urine Creatinine Urine Total Protein Coronavirus (PCR) Crossmatch 06/17/20 06/17/20 06/17/20 18:18 23:08 23:16 WBC RBC Hgb Hct MCHC RDW Lymph % (Auto) [place] % (Auto) Eos % (Auto) Lymph # [place] # Lymph # (Auto) [place] # (Auto) Seg Neutrophils % Seg Neuts % (Manual) Lymphocytes % (Manual) Seg Neutrophils # Seg Neutrophils # Man Lymphocytes # (Manual) Monocytes % (Manual) Eosinophils % (Manual) Monocytes # (Manual) Eosinophils # (Manual) D-Dimer Heparin Anti-Xa Level 0.71 H ABG pH POC ABG pCO2 POC ABG pO2 ABG pO2 ABG HCO3 ABG O2 Saturation ABG Base Excess ABG Hemoglobin ABG Oxyhemoglobin VBG pH Oxyhemoglobin Sodium Potassium Chloride Carbon Dioxide BUN Creatinine Glucose POC Glucose 159 H 134 H Lactic Acid Calcium Ferritin AST Alkaline Phosphatase Magnesium Lactate Dehydrogenase Total Creatine Kinase CK-MB (CK-2) C-Reactive Protein Total Protein Albumin Troponin T HDL Cholesterol Urine WBC (Auto) Urine Creatinine Urine Total Protein Coronavirus (PCR) Crossmatch 06/18/20 06/18/20 06/18/20 04:42 05:52 11:50 WBC RBC Hgb Hct MCHC RDW Lymph % (Auto) [place] % (Auto) Eos % (Auto) Lymph # [place] # Lymph # (Auto) [place] # (Auto) Seg Neutrophils % Seg Neuts % (Manual) Lymphocytes % (Manual) Seg Neutrophils # Seg Neutrophils # Man Lymphocytes # (Manual) Monocytes % (Manual) Eosinophils % (Manual) Monocytes # (Manual) Eosinophils # (Manual) D-Dimer Heparin Anti-Xa Level ABG pH POC ABG pCO2 POC ABG pO2 ABG pO2 ABG HCO3 ABG O2 Saturation ABG Base Excess ABG Hemoglobin ABG Oxyhemoglobin VBG pH Oxyhemoglobin Sodium Potassium Chloride Carbon Dioxide BUN 44 H Creatinine Glucose 115 H POC Glucose 171 H 167 H Lactic Acid Calcium Ferritin AST Alkaline Phosphatase Magnesium Lactate Dehydrogenase Total Creatine Kinase CK-MB (CK-2) C-Reactive Protein Total Protein Albumin Troponin T HDL Cholesterol Urine WBC (Auto) Urine Creatinine Urine Total Protein Coronavirus (PCR) Crossmatch 06/18/20 06/19/20 06/19/20 23:46 05:48 07:52 WBC RBC Hgb Hct MCHC RDW Lymph % (Auto) [place] % (Auto) Eos % (Auto) Lymph # [place] # Lymph # (Auto) [place] # (Auto) Seg Neutrophils % Seg Neuts % (Manual) Lymphocytes % (Manual) Seg Neutrophils # Seg Neutrophils # Man Lymphocytes # (Manual) Monocytes % (Manual) Eosinophils % (Manual) Monocytes # (Manual) Eosinophils # (Manual) D-Dimer Heparin Anti-Xa Level ABG pH POC ABG pCO2 POC ABG pO2 ABG pO2 ABG HCO3 ABG O2 Saturation ABG Base Excess ABG Hemoglobin ABG Oxyhemoglobin VBG pH Oxyhemoglobin Sodium Potassium Chloride Carbon Dioxide BUN Creatinine Glucose POC Glucose 130 H 207 H 175 H Lactic Acid Calcium Ferritin AST Alkaline Phosphatase Magnesium Lactate Dehydrogenase Total Creatine Kinase CK-MB (CK-2) C-Reactive Protein Total Protein Albumin Troponin T HDL Cholesterol Urine WBC (Auto) Urine Creatinine Urine Total Protein Coronavirus (PCR) Crossmatch 06/19/20 06/19/20 06/20/20 11:42 22:54 05:17 WBC RBC Hgb Hct MCHC RDW Lymph % (Auto) [place] % (Auto) Eos % (Auto) Lymph # [place] # Lymph # (Auto) [place] # (Auto) Seg Neutrophils % Seg Neuts % (Manual) Lymphocytes % (Manual) Seg Neutrophils # Seg Neutrophils # Man Lymphocytes # (Manual) Monocytes % (Manual) Eosinophils % (Manual) Monocytes # (Manual) Eosinophils # (Manual) D-Dimer Heparin Anti-Xa Level ABG pH POC ABG pCO2 POC ABG pO2 ABG pO2 ABG HCO3 ABG O2 Saturation ABG Base Excess ABG Hemoglobin ABG Oxyhemoglobin VBG pH Oxyhemoglobin Sodium Potassium Chloride Carbon Dioxide BUN Creatinine Glucose POC Glucose 166 H 135 H 218 H Lactic Acid Calcium Ferritin AST Alkaline Phosphatase Magnesium Lactate Dehydrogenase Total Creatine Kinase CK-MB (CK-2) C-Reactive Protein Total Protein Albumin Troponin T HDL Cholesterol Urine WBC (Auto) Urine Creatinine Urine Total Protein Coronavirus (PCR) Crossmatch 06/20/20 06/20/20 06/20/20 12:04 16:25 16:35 WBC RBC Hgb Hct MCHC RDW Lymph % (Auto) [place] % (Auto) Eos % (Auto) Lymph # [place] # Lymph # (Auto) [place] # (Auto) Seg Neutrophils % Seg Neuts % (Manual) Lymphocytes % (Manual) Seg Neutrophils # Seg Neutrophils # Man Lymphocytes # (Manual) Monocytes % (Manual) Eosinophils % (Manual) Monocytes # (Manual) Eosinophils # (Manual) D-Dimer Heparin Anti-Xa Level ABG pH POC ABG pCO2 POC ABG pO2 ABG pO2 59.6 L ABG HCO3 28.7 H ABG O2 Saturation 93.5 L ABG Base Excess 3.4 H ABG Hemoglobin 7.2 L ABG Oxyhemoglobin VBG pH Oxyhemoglobin 91.3 L Sodium Potassium Chloride Carbon Dioxide BUN Creatinine Glucose POC Glucose 194 H 137 H Lactic Acid Calcium Ferritin AST Alkaline Phosphatase Magnesium Lactate Dehydrogenase Total Creatine Kinase CK-MB (CK-2) C-Reactive Protein Total Protein Albumin Troponin T HDL Cholesterol Urine WBC (Auto) Urine Creatinine Urine Total Protein Coronavirus (PCR) Crossmatch 06/20/20 06/21/20 06/21/20 23:59 06:25 12:01 WBC RBC Hgb Hct MCHC RDW Lymph % (Auto) [place] % (Auto) Eos % (Auto) Lymph # [place] # Lymph # (Auto) [place] # (Auto) Seg Neutrophils % Seg Neuts % (Manual) Lymphocytes % (Manual) Seg Neutrophils # Seg Neutrophils # Man Lymphocytes # (Manual) Monocytes % (Manual) Eosinophils % (Manual) Monocytes # (Manual) Eosinophils # (Manual) D-Dimer Heparin Anti-Xa Level ABG pH POC ABG pCO2 POC ABG pO2 ABG pO2 ABG HCO3 ABG O2 Saturation ABG Base Excess ABG Hemoglobin ABG Oxyhemoglobin VBG pH Oxyhemoglobin Sodium Potassium Chloride Carbon Dioxide BUN Creatinine Glucose POC Glucose 156 H 177 H 195 H Lactic Acid Calcium Ferritin AST Alkaline Phosphatase Magnesium Lactate Dehydrogenase Total Creatine Kinase CK-MB (CK-2) C-Reactive Protein Total Protein Albumin Troponin T HDL Cholesterol Urine WBC (Auto) Urine Creatinine Urine Total Protein Coronavirus (PCR) Crossmatch 06/21/20 06/21/20 06/22/20 17:04 21:51 05:06 WBC RBC Hgb Hct MCHC RDW Lymph % (Auto) [place] % (Auto) Eos % (Auto) Lymph # [place] # Lymph # (Auto) [place] # (Auto) Seg Neutrophils % Seg Neuts % (Manual) Lymphocytes % (Manual) Seg Neutrophils # Seg Neutrophils # Man Lymphocytes # (Manual) Monocytes % (Manual) Eosinophils % (Manual) Monocytes # (Manual) Eosinophils # (Manual) D-Dimer Heparin Anti-Xa Level ABG pH POC ABG pCO2 POC ABG pO2 ABG pO2 ABG HCO3 ABG O2 Saturation ABG Base Excess ABG Hemoglobin ABG Oxyhemoglobin VBG pH Oxyhemoglobin Sodium Potassium Chloride Carbon Dioxide BUN Creatinine Glucose POC Glucose 156 H 154 H 167 H Lactic Acid Calcium Ferritin AST Alkaline Phosphatase Magnesium Lactate Dehydrogenase Total Creatine Kinase CK-MB (CK-2) C-Reactive Protein Total Protein Albumin Troponin T HDL Cholesterol Urine WBC (Auto) Urine Creatinine Urine Total Protein Coronavirus (PCR) Crossmatch 06/22/20 06/22/20 06/22/20 11:20 15:27 16:58 WBC RBC Hgb Hct MCHC RDW Lymph % (Auto) [place] % (Auto) Eos % (Auto) Lymph # [place] # Lymph # (Auto) [place] # (Auto) Seg Neutrophils % Seg Neuts % (Manual) Lymphocytes % (Manual) Seg Neutrophils # Seg Neutrophils # Man Lymphocytes # (Manual) Monocytes % (Manual) Eosinophils % (Manual) Monocytes # (Manual) Eosinophils # (Manual) D-Dimer Heparin Anti-Xa Level ABG pH 7.206 L POC ABG pCO2 79.9 H POC ABG pO2 ABG pO2 ABG HCO3 ABG O2 Saturation ABG Base Excess ABG Hemoglobin 8.3 L ABG Oxyhemoglobin VBG pH Oxyhemoglobin Sodium Potassium Chloride Carbon Dioxide BUN Creatinine Glucose POC Glucose 181 H 230 H Lactic Acid Calcium Ferritin AST Alkaline Phosphatase Magnesium Lactate Dehydrogenase Total Creatine Kinase CK-MB (CK-2) C-Reactive Protein Total Protein Albumin Troponin T HDL Cholesterol Urine WBC (Auto) Urine Creatinine Urine Total Protein Coronavirus (PCR) Crossmatch 06/22/20 06/23/20 06/23/20 22:26 05:49 05:49 WBC RBC 2.58 L Hgb 7.4 L Hct 23.2 L MCHC RDW 17.0 H Lymph % (Auto) [place] % (Auto) 11.2 H Eos % (Auto) Lymph # 1.0 L [place] # Lymph # (Auto) [place] # (Auto) Seg Neutrophils % Seg Neuts % (Manual) Lymphocytes % (Manual) Seg Neutrophils # Seg Neutrophils # Man Lymphocytes # (Manual) Monocytes % (Manual) Eosinophils % (Manual) Monocytes # (Manual) Eosinophils # (Manual) D-Dimer Heparin Anti-Xa Level ABG pH POC ABG pCO2 POC ABG pO2 ABG pO2 ABG HCO3 ABG O2 Saturation ABG Base Excess ABG Hemoglobin ABG Oxyhemoglobin VBG pH Oxyhemoglobin Sodium Potassium Chloride Carbon Dioxide BUN 68 H Creatinine 2.4 H Glucose 198 H POC Glucose 195 H Lactic Acid Calcium Ferritin AST Alkaline Phosphatase Magnesium Lactate Dehydrogenase Total Creatine Kinase CK-MB (CK-2) C-Reactive Protein Total Protein Albumin Troponin T HDL Cholesterol Urine WBC (Auto) Urine Creatinine Urine Total Protein Coronavirus (PCR) Crossmatch 06/23/20 06/23/20 06/23/20 05:50 12:29 12:34 WBC RBC Hgb Hct MCHC RDW Lymph % (Auto) [place] % (Auto) Eos % (Auto) Lymph # [place] # Lymph # (Auto) [place] # (Auto) Seg Neutrophils % Seg Neuts % (Manual) Lymphocytes % (Manual) Seg Neutrophils # Seg Neutrophils # Man Lymphocytes # (Manual) Monocytes % (Manual) Eosinophils % (Manual) Monocytes # (Manual) Eosinophils # (Manual) D-Dimer Heparin Anti-Xa Level ABG pH POC ABG pCO2 54.7 H POC ABG pO2 68.8 L ABG pO2 ABG HCO3 ABG O2 Saturation ABG Base Excess ABG Hemoglobin 9.8 L ABG Oxyhemoglobin 92.6 L VBG pH Oxyhemoglobin Sodium Potassium Chloride Carbon Dioxide BUN Creatinine Glucose POC Glucose 202 H 218 H Lactic Acid Calcium Ferritin AST Alkaline Phosphatase Magnesium Lactate Dehydrogenase Total Creatine Kinase CK-MB (CK-2) C-Reactive Protein Total Protein Albumin Troponin T HDL Cholesterol Urine WBC (Auto) Urine Creatinine Urine Total Protein Coronavirus (PCR) Crossmatch 06/23/20 06/23/20 06/24/20 16:02 22:22 01:06 WBC RBC Hgb Hct MCHC RDW Lymph % (Auto) [place] % (Auto) Eos % (Auto) Lymph # [place] # Lymph # (Auto) [place] # (Auto) Seg Neutrophils % Seg Neuts % (Manual) Lymphocytes % (Manual) Seg Neutrophils # Seg Neutrophils # Man Lymphocytes # (Manual) Monocytes % (Manual) Eosinophils % (Manual) Monocytes # (Manual) Eosinophils # (Manual) D-Dimer Heparin Anti-Xa Level ABG pH POC ABG pCO2 POC ABG pO2 ABG pO2 ABG HCO3 ABG O2 Saturation ABG Base Excess ABG Hemoglobin ABG Oxyhemoglobin VBG pH Oxyhemoglobin Sodium Potassium Chloride Carbon Dioxide BUN Creatinine Glucose POC Glucose 190 H 166 H 171 H Lactic Acid Calcium Ferritin AST Alkaline Phosphatase Magnesium Lactate Dehydrogenase Total Creatine Kinase CK-MB (CK-2) C-Reactive Protein Total Protein Albumin Troponin T HDL Cholesterol Urine WBC (Auto) Urine Creatinine Urine Total Protein Coronavirus (PCR) Crossmatch 06/24/20 06/24/20 06/24/20 04:48 05:35 11:48 WBC RBC Hgb Hct MCHC RDW Lymph % (Auto) [place] % (Auto) Eos % (Auto) Lymph # [place] # Lymph # (Auto) [place] # (Auto) Seg Neutrophils % Seg Neuts % (Manual) Lymphocytes % (Manual) Seg Neutrophils # Seg Neutrophils # Man Lymphocytes # (Manual) Monocytes % (Manual) Eosinophils % (Manual) Monocytes # (Manual) Eosinophils # (Manual) D-Dimer Heparin Anti-Xa Level ABG pH POC ABG pCO2 POC ABG pO2 ABG pO2 ABG HCO3 ABG O2 Saturation ABG Base Excess ABG Hemoglobin ABG Oxyhemoglobin VBG pH Oxyhemoglobin Sodium Potassium Chloride Carbon Dioxide BUN 75 H Creatinine 2.6 H Glucose 179 H POC Glucose 172 H 153 H Lactic Acid Calcium Ferritin AST Alkaline Phosphatase Magnesium Lactate Dehydrogenase Total Creatine Kinase CK-MB (CK-2) C-Reactive Protein Total Protein Albumin Troponin T HDL Cholesterol Urine WBC (Auto) Urine Creatinine Urine Total Protein Coronavirus (PCR) Crossmatch 06/24/20 06/24/20 06/25/20 16:38 21:52 12:00 WBC RBC Hgb Hct MCHC RDW Lymph % (Auto) [place] % (Auto) Eos % (Auto) Lymph # [place] # Lymph # (Auto) [place] # (Auto) Seg Neutrophils % Seg Neuts % (Manual) Lymphocytes % (Manual) Seg Neutrophils # Seg Neutrophils # Man Lymphocytes # (Manual) Monocytes % (Manual) Eosinophils % (Manual) Monocytes # (Manual) Eosinophils # (Manual) D-Dimer Heparin Anti-Xa Level ABG pH POC ABG pCO2 POC ABG pO2 ABG pO2 ABG HCO3 ABG O2 Saturation ABG Base Excess ABG Hemoglobin ABG Oxyhemoglobin VBG pH Oxyhemoglobin Sodium Potassium Chloride Carbon Dioxide BUN Creatinine Glucose POC Glucose 123 H 115 H 203 H Lactic Acid Calcium Ferritin AST Alkaline Phosphatase Magnesium Lactate Dehydrogenase Total Creatine Kinase CK-MB (CK-2) C-Reactive Protein Total Protein Albumin Troponin T HDL Cholesterol Urine WBC (Auto) Urine Creatinine Urine Total Protein Coronavirus (PCR) Crossmatch 06/25/20 06/25/20 06/25/20 15:43 16:37 23:02 WBC RBC Hgb Hct MCHC RDW Lymph % (Auto) [place] % (Auto) Eos % (Auto) Lymph # [place] # Lymph # (Auto) [place] # (Auto) Seg Neutrophils % Seg Neuts % (Manual) Lymphocytes % (Manual) Seg Neutrophils # Seg Neutrophils # Man Lymphocytes # (Manual) Monocytes % (Manual) Eosinophils % (Manual) Monocytes # (Manual) Eosinophils # (Manual) D-Dimer Heparin Anti-Xa Level ABG pH POC ABG pCO2 POC ABG pO2 ABG pO2 ABG HCO3 ABG O2 Saturation ABG Base Excess ABG Hemoglobin ABG Oxyhemoglobin VBG pH Oxyhemoglobin Sodium Potassium Chloride Carbon Dioxide BUN 71 H Creatinine 1.8 H Glucose 170 H POC Glucose 191 H 126 H Lactic Acid Calcium 8.2 L Ferritin AST Alkaline Phosphatase Magnesium Lactate Dehydrogenase Total Creatine Kinase CK-MB (CK-2) C-Reactive Protein Total Protein Albumin Troponin T HDL Cholesterol Urine WBC (Auto) Urine Creatinine Urine Total Protein Coronavirus (PCR) Crossmatch 06/26/20 06/26/20 06/26/20 06:34 06:34 09:27 WBC RBC 2.41 L Hgb 6.9 L Hct 21.5 L MCHC RDW 16.7 H Lymph % (Auto) 10.9 L [place] % (Auto) 9.6 H Eos % (Auto) Lymph # 0.7 L [place] # Lymph # (Auto) [place] # (Auto) Seg Neutrophils % 75.4 H Seg Neuts % (Manual) Lymphocytes % (Manual) Seg Neutrophils # Seg Neutrophils # Man Lymphocytes # (Manual) Monocytes % (Manual) Eosinophils % (Manual) Monocytes # (Manual) Eosinophils # (Manual) D-Dimer Heparin Anti-Xa Level ABG pH POC ABG pCO2 POC ABG pO2 ABG pO2 ABG HCO3 ABG O2 Saturation ABG Base Excess ABG Hemoglobin ABG Oxyhemoglobin VBG pH Oxyhemoglobin Sodium Potassium Chloride Carbon Dioxide BUN 77 H Creatinine 1.9 H Glucose 190 H POC Glucose Lactic Acid Calcium Ferritin AST Alkaline Phosphatase Magnesium Lactate Dehydrogenase Total Creatine Kinase CK-MB (CK-2) C-Reactive Protein Total Protein Albumin Troponin T HDL Cholesterol Urine WBC (Auto) Urine Creatinine Urine Total Protein Coronavirus (PCR) Crossmatch See Detail 06/26/20 06/26/20 06/26/20 12:15 16:28 17:28 WBC RBC Hgb Hct MCHC RDW Lymph % (Auto) [place] % (Auto) Eos % (Auto) Lymph # [place] # Lymph # (Auto) [place] # (Auto) Seg Neutrophils % Seg Neuts % (Manual) Lymphocytes % (Manual) Seg Neutrophils # Seg Neutrophils # Man Lymphocytes # (Manual) Monocytes % (Manual) Eosinophils % (Manual) Monocytes # (Manual) Eosinophils # (Manual) D-Dimer Heparin Anti-Xa Level ABG pH POC ABG pCO2 POC ABG pO2 ABG pO2 ABG HCO3 ABG O2 Saturation ABG Base Excess ABG Hemoglobin ABG Oxyhemoglobin VBG pH Oxyhemoglobin Sodium Potassium Chloride Carbon Dioxide BUN Creatinine Glucose POC Glucose 187 H 149 H 189 H Lactic Acid Calcium Ferritin AST Alkaline Phosphatase Magnesium Lactate Dehydrogenase Total Creatine Kinase CK-MB (CK-2) C-Reactive Protein Total Protein Albumin Troponin T HDL Cholesterol Urine WBC (Auto) Urine Creatinine Urine Total Protein Coronavirus (PCR) Crossmatch 06/26/20 06/26/20 06/26/20 18:30 18:30 18:30 WBC RBC 2.87 L Hgb 8.2 L Hct 25.9 L MCHC RDW 17.8 H Lymph % (Auto) [place] % (Auto) Eos % (Auto) Lymph # [place] # Lymph # (Auto) [place] # (Auto) Seg Neutrophils % Seg Neuts % (Manual) 83.0 H Lymphocytes % (Manual) 8.0 L Seg Neutrophils # Seg Neutrophils # Man Lymphocytes # (Manual) 0.6 L Monocytes % (Manual) Eosinophils % (Manual) Monocytes # (Manual) Eosinophils # (Manual) D-Dimer Heparin Anti-Xa Level ABG pH POC ABG pCO2 POC ABG pO2 ABG pO2 ABG HCO3 ABG O2 Saturation ABG Base Excess ABG Hemoglobin ABG Oxyhemoglobin VBG pH Oxyhemoglobin Sodium Potassium Chloride Carbon Dioxide BUN 80 H Creatinine 2.1 H Glucose 260 H POC Glucose Lactic Acid 4.30 H* Calcium 8.3 L Ferritin AST Alkaline Phosphatase Magnesium Lactate Dehydrogenase Total Creatine Kinase CK-MB (CK-2) C-Reactive Protein Total Protein Albumin Troponin T HDL Cholesterol Urine WBC (Auto) Urine Creatinine Urine Total Protein Coronavirus (PCR) Crossmatch 06/26/20 06/27/20 06/27/20 18:50 01:00 04:29 WBC RBC Hgb Hct MCHC RDW Lymph % (Auto) [place] % (Auto) Eos % (Auto) Lymph # [place] # Lymph # (Auto) [place] # (Auto) Seg Neutrophils % Seg Neuts % (Manual) Lymphocytes % (Manual) Seg Neutrophils # Seg Neutrophils # Man Lymphocytes # (Manual) Monocytes % (Manual) Eosinophils % (Manual) Monocytes # (Manual) Eosinophils # (Manual) D-Dimer Heparin Anti-Xa Level ABG pH 7.296 L POC ABG pCO2 POC ABG pO2 ABG pO2 116.5 H 200.5 H ABG HCO3 28.4 H ABG O2 Saturation 99.3 H ABG Base Excess 3.7 H ABG Hemoglobin 5.6 L ABG Oxyhemoglobin VBG pH Oxyhemoglobin Sodium Potassium Chloride Carbon Dioxide BUN Creatinine Glucose POC Glucose 123 H Lactic Acid Calcium Ferritin AST Alkaline Phosphatase Magnesium Lactate Dehydrogenase Total Creatine Kinase CK-MB (CK-2) C-Reactive Protein Total Protein Albumin Troponin T HDL Cholesterol Urine WBC (Auto) Urine Creatinine Urine Total Protein Coronavirus (PCR) Crossmatch 06/27/20 06/27/20 06/27/20 05:00 05:00 05:00 WBC RBC 2.75 L Hgb 7.9 L Hct 24.3 L MCHC RDW 17.1 H Lymph % (Auto) 8.5 L [place] % (Auto) 12.6 H Eos % (Auto) Lymph # 0.7 L [place] # 1.0 H Lymph # (Auto) [place] # (Auto) Seg Neutrophils % 77.5 H Seg Neuts % (Manual) Lymphocytes % (Manual) Seg Neutrophils # Seg Neutrophils # Man Lymphocytes # (Manual) Monocytes % (Manual) Eosinophils % (Manual) Monocytes # (Manual) Eosinophils # (Manual) D-Dimer Heparin Anti-Xa Level ABG pH POC ABG pCO2 POC ABG pO2 ABG pO2 ABG HCO3 ABG O2 Saturation ABG Base Excess ABG Hemoglobin ABG Oxyhemoglobin VBG pH Oxyhemoglobin Sodium Potassium Chloride Carbon Dioxide BUN 80 H Creatinine 2.0 H Glucose 129 H POC Glucose Lactic Acid 0.60 L Calcium 7.9 L Ferritin AST Alkaline Phosphatase Magnesium Lactate Dehydrogenase Total Creatine Kinase CK-MB (CK-2) C-Reactive Protein Total Protein Albumin Troponin T HDL Cholesterol Urine WBC (Auto) Urine Creatinine Urine Total Protein Coronavirus (PCR) Crossmatch 06/27/20 06/27/20 06/27/20 05:23 13:46 17:25 WBC RBC Hgb Hct MCHC RDW Lymph % (Auto) [place] % (Auto) Eos % (Auto) Lymph # [place] # Lymph # (Auto) [place] # (Auto) Seg Neutrophils % Seg Neuts % (Manual) Lymphocytes % (Manual) Seg Neutrophils # Seg Neutrophils # Man Lymphocytes # (Manual) Monocytes % (Manual) Eosinophils % (Manual) Monocytes # (Manual) Eosinophils # (Manual) D-Dimer Heparin Anti-Xa Level ABG pH POC ABG pCO2 POC ABG pO2 ABG pO2 ABG HCO3 ABG O2 Saturation ABG Base Excess ABG Hemoglobin ABG Oxyhemoglobin VBG pH Oxyhemoglobin Sodium Potassium Chloride Carbon Dioxide BUN Creatinine Glucose POC Glucose 109 H 158 H 162 H Lactic Acid Calcium Ferritin AST Alkaline Phosphatase Magnesium Lactate Dehydrogenase Total Creatine Kinase CK-MB (CK-2) C-Reactive Protein Total Protein Albumin Troponin T HDL Cholesterol Urine WBC (Auto) Urine Creatinine Urine Total Protein Coronavirus (PCR) Crossmatch 06/27/20 06/27/20 06/28/20 18:43 23:46 04:05 WBC RBC Hgb 7.7 L Hct 22.1 L MCHC RDW Lymph % (Auto) [place] % (Auto) Eos % (Auto) Lymph # [place] # Lymph # (Auto) [place] # (Auto) Seg Neutrophils % Seg Neuts % (Manual) Lymphocytes % (Manual) Seg Neutrophils # Seg Neutrophils # Man Lymphocytes # (Manual) Monocytes % (Manual) Eosinophils % (Manual) Monocytes # (Manual) Eosinophils # (Manual) D-Dimer Heparin Anti-Xa Level ABG pH POC ABG pCO2 POC ABG pO2 ABG pO2 102.7 H ABG HCO3 28.7 H ABG O2 Saturation ABG Base Excess 3.7 H ABG Hemoglobin ABG Oxyhemoglobin VBG pH Oxyhemoglobin Sodium Potassium Chloride Carbon Dioxide BUN Creatinine Glucose POC Glucose 142 H Lactic Acid Calcium Ferritin AST Alkaline Phosphatase Magnesium Lactate Dehydrogenase Total Creatine Kinase CK-MB (CK-2) C-Reactive Protein Total Protein Albumin Troponin T HDL Cholesterol Urine WBC (Auto) Urine Creatinine Urine Total Protein Coronavirus (PCR) Crossmatch 06/28/20 06/28/20 06/28/20 09:47 09:47 12:02 WBC RBC 2.53 L Hgb 7.4 L Hct 22.2 L MCHC RDW 16.8 H Lymph % (Auto) [place] % (Auto) 13.5 H Eos % (Auto) Lymph # 1.1 L [place] # 1.0 H Lymph # (Auto) [place] # (Auto) Seg Neutrophils % Seg Neuts % (Manual) Lymphocytes % (Manual) Seg Neutrophils # Seg Neutrophils # Man Lymphocytes # (Manual) Monocytes % (Manual) Eosinophils % (Manual) Monocytes # (Manual) Eosinophils # (Manual) D-Dimer Heparin Anti-Xa Level ABG pH POC ABG pCO2 POC ABG pO2 ABG pO2 ABG HCO3 ABG O2 Saturation ABG Base Excess ABG Hemoglobin ABG Oxyhemoglobin VBG pH Oxyhemoglobin Sodium Potassium Chloride Carbon Dioxide BUN 80 H Creatinine 1.5 H Glucose 139 H POC Glucose 169 H Lactic Acid Calcium 7.9 L Ferritin AST Alkaline Phosphatase Magnesium Lactate Dehydrogenase Total Creatine Kinase CK-MB (CK-2) C-Reactive Protein Total Protein 5.0 L Albumin 2.1 L Troponin T HDL Cholesterol Urine WBC (Auto) Urine Creatinine Urine Total Protein Coronavirus (PCR) Crossmatch 06/28/20 06/28/20 06/28/20 12:30 12:30 17:24 WBC RBC 2.38 L Hgb 7.3 L Hct 20.9 L MCHC 35 H RDW 16.7 H Lymph % (Auto) [place] % (Auto) Eos % (Auto) Lymph # [place] # Lymph # (Auto) [place] # (Auto) Seg Neutrophils % Seg Neuts % (Manual) Lymphocytes % (Manual) Seg Neutrophils # Seg Neutrophils # Man Lymphocytes # (Manual) Monocytes % (Manual) Eosinophils % (Manual) Monocytes # (Manual) Eosinophils # (Manual) D-Dimer Heparin Anti-Xa Level ABG pH POC ABG pCO2 POC ABG pO2 ABG pO2 ABG HCO3 ABG O2 Saturation ABG Base Excess ABG Hemoglobin ABG Oxyhemoglobin VBG pH Oxyhemoglobin Sodium Potassium Chloride Carbon Dioxide BUN 74 H Creatinine 1.5 H Glucose 143 H POC Glucose 173 H Lactic Acid Calcium 7.5 L Ferritin AST Alkaline Phosphatase Magnesium Lactate Dehydrogenase Total Creatine Kinase CK-MB (CK-2) C-Reactive Protein Total Protein Albumin Troponin T HDL Cholesterol Urine WBC (Auto) Urine Creatinine Urine Total Protein Coronavirus (PCR) Crossmatch 06/29/20 06/29/20 06/29/20 00:02 03:54 04:38 WBC RBC 2.55 L Hgb 7.3 L Hct 22.4 L MCHC RDW 16.4 H Lymph % (Auto) 13.3 L [place] % (Auto) 12.5 H Eos % (Auto) Lymph # 1.1 L [place] # 1.0 H Lymph # (Auto) [place] # (Auto) Seg Neutrophils % Seg Neuts % (Manual) Lymphocytes % (Manual) Seg Neutrophils # Seg Neutrophils # Man Lymphocytes # (Manual) Monocytes % (Manual) Eosinophils % (Manual) Monocytes # (Manual) Eosinophils # (Manual) D-Dimer Heparin Anti-Xa Level ABG pH POC ABG pCO2 POC ABG pO2 ABG pO2 ABG HCO3 26.9 H ABG O2 Saturation ABG Base Excess ABG Hemoglobin 6.9 L ABG Oxyhemoglobin VBG pH Oxyhemoglobin Sodium Potassium Chloride Carbon Dioxide BUN Creatinine Glucose POC Glucose 142 H Lactic Acid Calcium Ferritin AST Alkaline Phosphatase Magnesium Lactate Dehydrogenase Total Creatine Kinase CK-MB (CK-2) C-Reactive Protein Total Protein Albumin Troponin T HDL Cholesterol Urine WBC (Auto) Urine Creatinine Urine Total Protein Coronavirus (PCR) Crossmatch 06/29/20 06/29/20 06/29/20 04:38 05:38 12:25 WBC RBC Hgb Hct MCHC RDW Lymph % (Auto) [place] % (Auto) Eos % (Auto) Lymph # [place] # Lymph # (Auto) [place] # (Auto) Seg Neutrophils % Seg Neuts % (Manual) Lymphocytes % (Manual) Seg Neutrophils # Seg Neutrophils # Man Lymphocytes # (Manual) Monocytes % (Manual) Eosinophils % (Manual) Monocytes # (Manual) Eosinophils # (Manual) D-Dimer Heparin Anti-Xa Level ABG pH POC ABG pCO2 POC ABG pO2 ABG pO2 ABG HCO3 ABG O2 Saturation ABG Base Excess ABG Hemoglobin ABG Oxyhemoglobin VBG pH Oxyhemoglobin Sodium Potassium Chloride 107.8 H Carbon Dioxide BUN 72 H Creatinine 1.4 H Glucose 127 H POC Glucose 122 H 138 H Lactic Acid Calcium 7.4 L Ferritin AST Alkaline Phosphatase Magnesium Lactate Dehydrogenase Total Creatine Kinase CK-MB (CK-2) C-Reactive Protein Total Protein Albumin Troponin T HDL Cholesterol Urine WBC (Auto) Urine Creatinine Urine Total Protein Coronavirus (PCR) Crossmatch 06/29/20 06/29/20 06/29/20 14:45 14:45 14:45 WBC RBC Hgb Hct MCHC RDW Lymph % (Auto) [place] % (Auto) Eos % (Auto) Lymph # [place] # Lymph # (Auto) [place] # (Auto) Seg Neutrophils % Seg Neuts % (Manual) Lymphocytes % (Manual) Seg Neutrophils # Seg Neutrophils # Man Lymphocytes # (Manual) Monocytes % (Manual) Eosinophils % (Manual) Monocytes # (Manual) Eosinophils # (Manual) D-Dimer 2310.15 H Heparin Anti-Xa Level ABG pH POC ABG pCO2 POC ABG pO2 ABG pO2 ABG HCO3 ABG O2 Saturation ABG Base Excess ABG Hemoglobin ABG Oxyhemoglobin VBG pH Oxyhemoglobin Sodium Potassium Chloride Carbon Dioxide BUN Creatinine Glucose POC Glucose Lactic Acid Calcium Ferritin 223.6 H AST Alkaline Phosphatase Magnesium Lactate Dehydrogenase 367 H Total Creatine Kinase CK-MB (CK-2) C-Reactive Protein 3.60 H Total Protein Albumin Troponin T HDL Cholesterol Urine WBC (Auto) Urine Creatinine Urine Total Protein Coronavirus (PCR) Crossmatch 06/29/20 06/29/20 06/29/20 18:27 23:35 Unknown WBC RBC Hgb Hct MCHC RDW Lymph % (Auto) [place] % (Auto) Eos % (Auto) Lymph # [place] # Lymph # (Auto) [place] # (Auto) Seg Neutrophils % Seg Neuts % (Manual) Lymphocytes % (Manual) Seg Neutrophils # Seg Neutrophils # Man Lymphocytes # (Manual) Monocytes % (Manual) Eosinophils % (Manual) Monocytes # (Manual) Eosinophils # (Manual) D-Dimer Heparin Anti-Xa Level ABG pH POC ABG pCO2 POC ABG pO2 ABG pO2 ABG HCO3 ABG O2 Saturation ABG Base Excess ABG Hemoglobin ABG Oxyhemoglobin VBG pH Oxyhemoglobin Sodium Potassium Chloride Carbon Dioxide BUN Creatinine Glucose POC Glucose 112 H 140 H Lactic Acid Calcium Ferritin AST Alkaline Phosphatase Magnesium Lactate Dehydrogenase Total Creatine Kinase CK-MB (CK-2) C-Reactive Protein Total Protein Albumin Troponin T HDL Cholesterol Urine WBC (Auto) Urine Creatinine Urine Total Protein Coronavirus (PCR) Positive A Crossmatch 06/30/20 06/30/20 06/30/20 04:10 04:10 06:09 WBC RBC 2.44 L Hgb 7.1 L Hct 21.5 L MCHC RDW 16.6 H Lymph % (Auto) 11.0 L [place] % (Auto) 10.8 H Eos % (Auto) Lymph # 0.9 L [place] # 0.9 H Lymph # (Auto) [place] # (Auto) Seg Neutrophils % 73.7 H Seg Neuts % (Manual) Lymphocytes % (Manual) Seg Neutrophils # Seg Neutrophils # Man Lymphocytes # (Manual) Monocytes % (Manual) Eosinophils % (Manual) Monocytes # (Manual) Eosinophils # (Manual) D-Dimer Heparin Anti-Xa Level ABG pH POC ABG pCO2 POC ABG pO2 ABG pO2 ABG HCO3 ABG O2 Saturation ABG Base Excess ABG Hemoglobin ABG Oxyhemoglobin VBG pH Oxyhemoglobin Sodium Potassium Chloride 109.1 H Carbon Dioxide BUN 74 H Creatinine 1.3 H Glucose 191 H POC Glucose 187 H Lactic Acid Calcium 7.8 L Ferritin AST Alkaline Phosphatase Magnesium Lactate Dehydrogenase Total Creatine Kinase CK-MB (CK-2) C-Reactive Protein Total Protein Albumin Troponin T HDL Cholesterol Urine WBC (Auto) Urine Creatinine Urine Total Protein Coronavirus (PCR) Crossmatch 06/30/20 06/30/20 06/30/20 12:04 17:43 23:41 WBC RBC Hgb Hct MCHC RDW Lymph % (Auto) [place] % (Auto) Eos % (Auto) Lymph # [place] # Lymph # (Auto) [place] # (Auto) Seg Neutrophils % Seg Neuts % (Manual) Lymphocytes % (Manual) Seg Neutrophils # Seg Neutrophils # Man Lymphocytes # (Manual) Monocytes % (Manual) Eosinophils % (Manual) Monocytes # (Manual) Eosinophils # (Manual) D-Dimer Heparin Anti-Xa Level ABG pH POC ABG pCO2 POC ABG pO2 ABG pO2 ABG HCO3 ABG O2 Saturation ABG Base Excess ABG Hemoglobin ABG Oxyhemoglobin VBG pH Oxyhemoglobin Sodium Potassium Chloride Carbon Dioxide BUN Creatinine Glucose POC Glucose 112 H 177 H 143 H Lactic Acid Calcium Ferritin AST Alkaline Phosphatase Magnesium Lactate Dehydrogenase Total Creatine Kinase CK-MB (CK-2) C-Reactive Protein Total Protein Albumin Troponin T HDL Cholesterol Urine WBC (Auto) Urine Creatinine Urine Total Protein Coronavirus (PCR) Crossmatch 07/01/20 07/01/20 07/01/20 05:02 05:52 06:01 WBC 12.6 H RBC 2.95 L Hgb 8.2 L Hct 26.0 L MCHC RDW 16.9 H Lymph % (Auto) [place] % (Auto) Eos % (Auto) Lymph # [place] # Lymph # (Auto) [place] # (Auto) Seg Neutrophils % Seg Neuts % (Manual) Lymphocytes % (Manual) Seg Neutrophils # Seg Neutrophils # Man 8.6 H Lymphocytes # (Manual) Monocytes % (Manual) Eosinophils % (Manual) 5.0 H Monocytes # (Manual) Eosinophils # (Manual) 0.6 H D-Dimer Heparin Anti-Xa Level ABG pH POC ABG pCO2 POC ABG pO2 ABG pO2 ABG HCO3 ABG O2 Saturation ABG Base Excess ABG Hemoglobin 8.2 L ABG Oxyhemoglobin VBG pH Oxyhemoglobin Sodium Potassium Chloride Carbon Dioxide BUN Creatinine Glucose POC Glucose 129 H Lactic Acid Calcium Ferritin AST Alkaline Phosphatase Magnesium Lactate Dehydrogenase Total Creatine Kinase CK-MB (CK-2) C-Reactive Protein Total Protein Albumin Troponin T HDL Cholesterol Urine WBC (Auto) Urine Creatinine Urine Total Protein Coronavirus (PCR) Crossmatch 07/01/20 07/01/20 07/01/20 06:01 06:01 06:08 WBC RBC Hgb Hct MCHC RDW Lymph % (Auto) [place] % (Auto) Eos % (Auto) Lymph # [place] # Lymph # (Auto) [place] # (Auto) Seg Neutrophils % Seg Neuts % (Manual) Lymphocytes % (Manual) Seg Neutrophils # Seg Neutrophils # Man Lymphocytes # (Manual) Monocytes % (Manual) Eosinophils % (Manual) Monocytes # (Manual) Eosinophils # (Manual) D-Dimer Heparin Anti-Xa Level ABG pH POC ABG pCO2 POC ABG pO2 ABG pO2 ABG HCO3 ABG O2 Saturation ABG Base Excess ABG Hemoglobin ABG Oxyhemoglobin VBG pH Oxyhemoglobin Sodium 147 H Potassium Chloride 108.0 H Carbon Dioxide BUN 71 H Creatinine 1.3 H Glucose 193 H POC Glucose 192 H Lactic Acid Calcium 8.1 L Ferritin AST Alkaline Phosphatase Magnesium Lactate Dehydrogenase Total Creatine Kinase 300 H CK-MB (CK-2) C-Reactive Protein Total Protein Albumin Troponin T 0.067 H HDL Cholesterol 61 H Urine WBC (Auto) Urine Creatinine Urine Total Protein Coronavirus (PCR) Crossmatch 07/01/20 07/01/20 07/02/20 12:23 17:40 00:18 WBC RBC Hgb Hct MCHC RDW Lymph % (Auto) [place] % (Auto) Eos % (Auto) Lymph # [place] # Lymph # (Auto) [place] # (Auto) Seg Neutrophils % Seg Neuts % (Manual) Lymphocytes % (Manual) Seg Neutrophils # Seg Neutrophils # Man Lymphocytes # (Manual) Monocytes % (Manual) Eosinophils % (Manual) Monocytes # (Manual) Eosinophils # (Manual) D-Dimer Heparin Anti-Xa Level ABG pH POC ABG pCO2 POC ABG pO2 ABG pO2 ABG HCO3 ABG O2 Saturation ABG Base Excess ABG Hemoglobin ABG Oxyhemoglobin VBG pH Oxyhemoglobin Sodium Potassium Chloride Carbon Dioxide BUN Creatinine Glucose POC Glucose 111 H 135 H 145 H Lactic Acid Calcium Ferritin AST Alkaline Phosphatase Magnesium Lactate Dehydrogenase Total Creatine Kinase CK-MB (CK-2) C-Reactive Protein Total Protein Albumin Troponin T HDL Cholesterol Urine WBC (Auto) Urine Creatinine Urine Total Protein Coronavirus (PCR) Crossmatch 07/02/20 07/02/20 07/02/20 04:11 04:23 05:54 WBC RBC Hgb Hct MCHC RDW Lymph % (Auto) [place] % (Auto) Eos % (Auto) Lymph # [place] # Lymph # (Auto) [place] # (Auto) Seg Neutrophils % Seg Neuts % (Manual) Lymphocytes % (Manual) Seg Neutrophils # Seg Neutrophils # Man Lymphocytes # (Manual) Monocytes % (Manual) Eosinophils % (Manual) Monocytes # (Manual) Eosinophils # (Manual) D-Dimer Heparin Anti-Xa Level ABG pH POC ABG pCO2 POC ABG pO2 ABG pO2 ABG HCO3 ABG O2 Saturation ABG Base Excess ABG Hemoglobin 5.4 L ABG Oxyhemoglobin VBG pH Oxyhemoglobin Sodium Potassium Chloride 108.6 H Carbon Dioxide BUN 72 H Creatinine Glucose 112 H POC Glucose 137 H Lactic Acid Calcium 7.8 L Ferritin AST Alkaline Phosphatase Magnesium Lactate Dehydrogenase Total Creatine Kinase CK-MB (CK-2) C-Reactive Protein Total Protein Albumin Troponin T HDL Cholesterol Urine WBC (Auto) Urine Creatinine Urine Total Protein Coronavirus (PCR) Crossmatch 07/02/20 07/02/20 07/02/20 11:38 18:04 23:59 WBC RBC Hgb Hct MCHC RDW Lymph % (Auto) [place] % (Auto) Eos % (Auto) Lymph # [place] # Lymph # (Auto) [place] # (Auto) Seg Neutrophils % Seg Neuts % (Manual) Lymphocytes % (Manual) Seg Neutrophils # Seg Neutrophils # Man Lymphocytes # (Manual) Monocytes % (Manual) Eosinophils % (Manual) Monocytes # (Manual) Eosinophils # (Manual) D-Dimer Heparin Anti-Xa Level ABG pH POC ABG pCO2 POC ABG pO2 ABG pO2 ABG HCO3 ABG O2 Saturation ABG Base Excess ABG Hemoglobin ABG Oxyhemoglobin VBG pH Oxyhemoglobin Sodium Potassium Chloride Carbon Dioxide BUN Creatinine Glucose POC Glucose 128 H 135 H 156 H Lactic Acid Calcium Ferritin AST Alkaline Phosphatase Magnesium Lactate Dehydrogenase Total Creatine Kinase CK-MB (CK-2) C-Reactive Protein Total Protein Albumin Troponin T HDL Cholesterol Urine WBC (Auto) Urine Creatinine Urine Total Protein Coronavirus (PCR) Crossmatch 07/03/20 07/03/20 07/03/20 03:49 06:00 11:31 WBC RBC Hgb Hct MCHC RDW Lymph % (Auto) [place] % (Auto) Eos % (Auto) Lymph # [place] # Lymph # (Auto) [place] # (Auto) Seg Neutrophils % Seg Neuts % (Manual) Lymphocytes % (Manual) Seg Neutrophils # Seg Neutrophils # Man Lymphocytes # (Manual) Monocytes % (Manual) Eosinophils % (Manual) Monocytes # (Manual) Eosinophils # (Manual) D-Dimer Heparin Anti-Xa Level ABG pH POC ABG pCO2 POC ABG pO2 ABG pO2 121.0 H ABG HCO3 ABG O2 Saturation ABG Base Excess ABG Hemoglobin 8.5 L ABG Oxyhemoglobin VBG pH Oxyhemoglobin Sodium Potassium Chloride Carbon Dioxide BUN Creatinine Glucose POC Glucose 135 H 141 H Lactic Acid Calcium Ferritin AST Alkaline Phosphatase Magnesium Lactate Dehydrogenase Total Creatine Kinase CK-MB (CK-2) C-Reactive Protein Total Protein Albumin Troponin T HDL Cholesterol Urine WBC (Auto) Urine Creatinine Urine Total Protein Coronavirus (PCR) Crossmatch 07/03/20 07/03/20 07/04/20 16:07 17:40 05:49 WBC RBC Hgb Hct MCHC RDW Lymph % (Auto) [place] % (Auto) Eos % (Auto) Lymph # [place] # Lymph # (Auto) [place] # (Auto) Seg Neutrophils % Seg Neuts % (Manual) Lymphocytes % (Manual) Seg Neutrophils # Seg Neutrophils # Man Lymphocytes # (Manual) Monocytes % (Manual) Eosinophils % (Manual) Monocytes # (Manual) Eosinophils # (Manual) D-Dimer Heparin Anti-Xa Level ABG pH POC ABG pCO2 POC ABG pO2 ABG pO2 126.9 H ABG HCO3 ABG O2 Saturation ABG Base Excess ABG Hemoglobin 8.1 L ABG Oxyhemoglobin VBG pH Oxyhemoglobin Sodium Potassium Chloride Carbon Dioxide BUN Creatinine Glucose POC Glucose 120 H 128 H Lactic Acid Calcium Ferritin AST Alkaline Phosphatase Magnesium Lactate Dehydrogenase Total Creatine Kinase CK-MB (CK-2) C-Reactive Protein Total Protein Albumin Troponin T HDL Cholesterol Urine WBC (Auto) Urine Creatinine Urine Total Protein Coronavirus (PCR) Crossmatch 07/04/20 07/04/20 07/05/20 11:54 18:00 00:07 WBC RBC Hgb Hct MCHC RDW Lymph % (Auto) [place] % (Auto) Eos % (Auto) Lymph # [place] # Lymph # (Auto) [place] # (Auto) Seg Neutrophils % Seg Neuts % (Manual) Lymphocytes % (Manual) Seg Neutrophils # Seg Neutrophils # Man Lymphocytes # (Manual) Monocytes % (Manual) Eosinophils % (Manual) Monocytes # (Manual) Eosinophils # (Manual) D-Dimer Heparin Anti-Xa Level ABG pH POC ABG pCO2 POC ABG pO2 ABG pO2 ABG HCO3 ABG O2 Saturation ABG Base Excess ABG Hemoglobin ABG Oxyhemoglobin VBG pH Oxyhemoglobin Sodium Potassium Chloride Carbon Dioxide BUN Creatinine Glucose POC Glucose 168 H 133 H 121 H Lactic Acid Calcium Ferritin AST Alkaline Phosphatase Magnesium Lactate Dehydrogenase Total Creatine Kinase CK-MB (CK-2) C-Reactive Protein Total Protein Albumin Troponin T HDL Cholesterol Urine WBC (Auto) Urine Creatinine Urine Total Protein Coronavirus (PCR) Crossmatch 07/05/20 07/05/20 07/05/20 01:12 02:30 12:09 WBC RBC 2.35 L Hgb 6.9 L Hct 21.1 L MCHC RDW 16.8 H Lymph % (Auto) [place] % (Auto) Eos % (Auto) Lymph # [place] # Lymph # (Auto) [place] # (Auto) Seg Neutrophils % Seg Neuts % (Manual) 74.0 H Lymphocytes % (Manual) 12.0 L Seg Neutrophils # Seg Neutrophils # Man 8.0 H Lymphocytes # (Manual) Monocytes % (Manual) 9.0 H Eosinophils % (Manual) Monocytes # (Manual) 1.0 H Eosinophils # (Manual) D-Dimer Heparin Anti-Xa Level ABG pH POC ABG pCO2 POC ABG pO2 ABG pO2 ABG HCO3 ABG O2 Saturation ABG Base Excess ABG Hemoglobin ABG Oxyhemoglobin VBG pH Oxyhemoglobin Sodium Potassium Chloride Carbon Dioxide BUN Creatinine Glucose POC Glucose 132 H Lactic Acid Calcium Ferritin AST Alkaline Phosphatase Magnesium Lactate Dehydrogenase Total Creatine Kinase CK-MB (CK-2) C-Reactive Protein Total Protein Albumin Troponin T HDL Cholesterol Urine WBC (Auto) Urine Creatinine Urine Total Protein Coronavirus (PCR) Crossmatch See Detail 07/05/20 07/05/20 07/05/20 13:05 18:04 23:13 WBC RBC 2.57 L Hgb 7.7 L Hct 23.0 L MCHC RDW 16.9 H Lymph % (Auto) [place] % (Auto) Eos % (Auto) Lymph # [place] # Lymph # (Auto) [place] # (Auto) Seg Neutrophils % Seg Neuts % (Manual) Lymphocytes % (Manual) Seg Neutrophils # Seg Neutrophils # Man Lymphocytes # (Manual) Monocytes % (Manual) Eosinophils % (Manual) Monocytes # (Manual) Eosinophils # (Manual) D-Dimer Heparin Anti-Xa Level ABG pH 7.32 L POC ABG pCO2 POC ABG pO2 ABG pO2 78.3 L ABG HCO3 ABG O2 Saturation ABG Base Excess -2.6 L ABG Hemoglobin 7.3 L ABG Oxyhemoglobin VBG pH Oxyhemoglobin Sodium Potassium Chloride Carbon Dioxide BUN Creatinine Glucose POC Glucose 160 H Lactic Acid Calcium Ferritin AST Alkaline Phosphatase Magnesium Lactate Dehydrogenase Total Creatine Kinase CK-MB (CK-2) C-Reactive Protein Total Protein Albumin Troponin T HDL Cholesterol Urine WBC (Auto) Urine Creatinine Urine Total Protein Coronavirus (PCR) Crossmatch 07/05/20 07/05/20 07/06/20 23:13 23:43 13:20 WBC RBC Hgb Hct MCHC RDW Lymph % (Auto) [place] % (Auto) Eos % (Auto) Lymph # [place] # Lymph # (Auto) [place] # (Auto) Seg Neutrophils % Seg Neuts % (Manual) Lymphocytes % (Manual) Seg Neutrophils # Seg Neutrophils # Man Lymphocytes # (Manual) Monocytes % (Manual) Eosinophils % (Manual) Monocytes # (Manual) Eosinophils # (Manual) D-Dimer Heparin Anti-Xa Level ABG pH POC ABG pCO2 POC ABG pO2 ABG pO2 ABG HCO3 ABG O2 Saturation ABG Base Excess ABG Hemoglobin ABG Oxyhemoglobin VBG pH Oxyhemoglobin Sodium Potassium Chloride Carbon Dioxide 20 L BUN 80 H Creatinine 2.4 H D Glucose 124 H POC Glucose 121 H Lactic Acid Calcium 7.6 L Ferritin AST Alkaline Phosphatase Magnesium Lactate Dehydrogenase Total Creatine Kinase CK-MB (CK-2) C-Reactive Protein Total Protein Albumin Troponin T HDL Cholesterol Urine WBC (Auto) Urine Creatinine 33.3 H Urine Total Protein Coronavirus (PCR) Crossmatch 07/06/20 07/06/20 07/07/20 14:48 17:28 00:12 WBC RBC Hgb Hct MCHC RDW Lymph % (Auto) [place] % (Auto) Eos % (Auto) Lymph # [place] # Lymph # (Auto) [place] # (Auto) Seg Neutrophils % Seg Neuts % (Manual) Lymphocytes % (Manual) Seg Neutrophils # Seg Neutrophils # Man Lymphocytes # (Manual) Monocytes % (Manual) Eosinophils % (Manual) Monocytes # (Manual) Eosinophils # (Manual) D-Dimer Heparin Anti-Xa Level ABG pH POC ABG pCO2 POC ABG pO2 ABG pO2 ABG HCO3 ABG O2 Saturation ABG Base Excess ABG Hemoglobin ABG Oxyhemoglobin VBG pH Oxyhemoglobin Sodium 136 L Potassium 5.5 H Chloride Carbon Dioxide 19 L BUN 82 H Creatinine 2.5 H Glucose 113 H POC Glucose 133 H 154 H Lactic Acid Calcium 7.7 L Ferritin AST Alkaline Phosphatase Magnesium Lactate Dehydrogenase Total Creatine Kinase CK-MB (CK-2) C-Reactive Protein Total Protein Albumin Troponin T HDL Cholesterol Urine WBC (Auto) Urine Creatinine Urine Total Protein Coronavirus (PCR) Crossmatch 07/07/20 07/07/20 07/07/20 04:15 04:15 05:31 WBC RBC 2.28 L Hgb 6.8 L Hct 20.7 L MCHC RDW 16.8 H Lymph % (Auto) [place] % (Auto) Eos % (Auto) Lymph # [place] # Lymph # (Auto) [place] # (Auto) Seg Neutrophils % Seg Neuts % (Manual) Lymphocytes % (Manual) 13.0 L Seg Neutrophils # Seg Neutrophils # Man Lymphocytes # (Manual) 1.0 L Monocytes % (Manual) 11.0 H Eosinophils % (Manual) Monocytes # (Manual) 0.9 H Eosinophils # (Manual) D-Dimer Heparin Anti-Xa Level ABG pH POC ABG pCO2 POC ABG pO2 ABG pO2 ABG HCO3 ABG O2 Saturation ABG Base Excess ABG Hemoglobin ABG Oxyhemoglobin VBG pH Oxyhemoglobin Sodium Potassium Chloride Carbon Dioxide BUN Creatinine Glucose POC Glucose 135 H Lactic Acid Calcium Ferritin AST Alkaline Phosphatase Magnesium 2.50 H Lactate Dehydrogenase Total Creatine Kinase CK-MB (CK-2) C-Reactive Protein Total Protein Albumin Troponin T HDL Cholesterol Urine WBC (Auto) Urine Creatinine Urine Total Protein Coronavirus (PCR) Crossmatch 07/07/20 07/07/20 07/07/20 12:31 13:22 17:55 WBC RBC Hgb Hct MCHC RDW Lymph % (Auto) [place] % (Auto) Eos % (Auto) Lymph # [place] # Lymph # (Auto) [place] # (Auto) Seg Neutrophils % Seg Neuts % (Manual) Lymphocytes % (Manual) Seg Neutrophils # Seg Neutrophils # Man Lymphocytes # (Manual) Monocytes % (Manual) Eosinophils % (Manual) Monocytes # (Manual) Eosinophils # (Manual) D-Dimer Heparin Anti-Xa Level ABG pH POC ABG pCO2 POC ABG pO2 ABG pO2 ABG HCO3 ABG O2 Saturation ABG Base Excess ABG Hemoglobin ABG Oxyhemoglobin VBG pH Oxyhemoglobin Sodium Potassium 5.6 H Chloride Carbon Dioxide BUN 86 H Creatinine 2.9 H Glucose 127 H POC Glucose 131 H 136 H Lactic Acid Calcium 8.1 L Ferritin AST Alkaline Phosphatase Magnesium Lactate Dehydrogenase Total Creatine Kinase CK-MB (CK-2) C-Reactive Protein Total Protein Albumin Troponin T HDL Cholesterol Urine WBC (Auto) Urine Creatinine Urine Total Protein Coronavirus (PCR) Crossmatch 07/07/20 07/08/20 07/08/20 23:33 04:14 04:14 WBC RBC 3.28 L Hgb 9.7 L Hct 28.9 L D MCHC RDW 16.4 H Lymph % (Auto) 10.3 L [place] % (Auto) 10.0 H Eos % (Auto) Lymph # [place] # Lymph # (Auto) 1.1 L [place] # (Auto) 1.1 H Seg Neutrophils % 77.2 H Seg Neuts % (Manual) Lymphocytes % (Manual) Seg Neutrophils # 8.2 H Seg Neutrophils # Man Lymphocytes # (Manual) Monocytes % (Manual) Eosinophils % (Manual) Monocytes # (Manual) Eosinophils # (Manual) D-Dimer Heparin Anti-Xa Level ABG pH POC ABG pCO2 POC ABG pO2 ABG pO2 ABG HCO3 ABG O2 Saturation ABG Base Excess ABG Hemoglobin ABG Oxyhemoglobin VBG pH Oxyhemoglobin Sodium 136 L Potassium Chloride Carbon Dioxide BUN 84 H Creatinine 2.8 H Glucose 109 H POC Glucose 159 H Lactic Acid Calcium 8.1 L Ferritin AST Alkaline Phosphatase Magnesium 2.50 H Lactate Dehydrogenase Total Creatine Kinase CK-MB (CK-2) C-Reactive Protein Total Protein Albumin Troponin T HDL Cholesterol Urine WBC (Auto) Urine Creatinine Urine Total Protein Coronavirus (PCR) Crossmatch 07/08/20 12:10 WBC RBC Hgb Hct MCHC RDW Lymph % (Auto) [place] % (Auto) Eos % (Auto) Lymph # [place] # Lymph # (Auto) [place] # (Auto) Seg Neutrophils % Seg Neuts % (Manual) Lymphocytes % (Manual) Seg Neutrophils # Seg Neutrophils # Man Lymphocytes # (Manual) Monocytes % (Manual) Eosinophils % (Manual) Monocytes # (Manual) Eosinophils # (Manual) D-Dimer Heparin Anti-Xa Level ABG pH POC ABG pCO2 POC ABG pO2 ABG pO2 ABG HCO3 ABG O2 Saturation ABG Base Excess ABG Hemoglobin ABG Oxyhemoglobin VBG pH Oxyhemoglobin Sodium Potassium Chloride Carbon Dioxide BUN Creatinine Glucose POC Glucose 108 H Lactic Acid Calcium Ferritin AST Alkaline Phosphatase Magnesium Lactate Dehydrogenase Total Creatine Kinase CK-MB (CK-2) C-Reactive Protein Total Protein Albumin Troponin T HDL Cholesterol Urine WBC (Auto) Urine Creatinine Urine Total Protein Coronavirus (PCR) Crossmatch Chest x-ray: pending Allied health notes reviewed: nursing
[2020-07-08] MEDS ORDERED: MORPHINE 4 MG/1 ML INJ IV ONE (21:08)
[2020-07-08] MEDS: INSULIN GLARGINE 100 UNITS/ML SUB-Q SCH (23:49)
[2020-07-09] MEDS: INSULIN LISPRO 100 UNIT/ML VIAL 3 mL SUB-Q SCH ×4 (02:04→18:58)
[2020-07-09] MEDS: HEPARIN 5,000 UNIT/1 ML VIAL SUB-Q SCH ×2 (06:16→13:30)
[2020-07-09] MEDS: hydrALAZINE 25 MG TAB PO SCH ×3 (06:17→21:34)
[2020-07-09] MEDS: amLODIPine 10 MG TAB PO SCH (09:50)
[2020-07-09] MEDS: cloNIDine 0.2 MG TAB PO SCH ×2 (09:50→22:15)
[2020-07-09] MEDS: levETIRAcetam 500 MG/5 ML ORAL LIQD PO SCH (09:50)
[2020-07-09] MEDS: GLYCOPYRROLATE 2 MG TAB PO SCH ×3 (09:50→20:15)
[2020-07-09] MEDS: MAGIC MOUTHWASH 30ML PO SCH ×3 (09:50→21:41)
[2020-07-09] MEDS: LANSOPRAZOLE 30 MG SOLUTAB FEEDTUBE SCH (09:51)
[2020-07-09] MEDS: carvediloL 12.5 MG TAB PO SCH ×2 (09:51→21:39)
[2020-07-09] MEDS: MODAFINIL 100 MG TAB PO SCH (09:51)
[2020-07-09] MEDS: SENNOSIDES ORAL LIQD 8.8 MG/5 ML ORAL LIQD FEEDTUBE SCH (09:52)
--- NOTE | 2020-07-09 11:07 | Progress Note ---
Assessment and Plan Cardiopulmoanry arrest 06/26/2020 with ROSC Acute hypoxemic respiratory failure , extubated now re-intubated Anemia s/p PRBC Severe COVID infection Multifocal pneumonia Morbid obesity Acute toxic metabolic encephalopathy AVANI secondary to COVID/vasomotor nephropathy Bilateral pulmonary edema. Bilateral pleural effusions. History of congestive heart failure. History of pulmonary hypertension. History of hypertension. Diabetes. Obesity hypoventilation syndrome. Oropharyngeal dysphagia. Monitor off antibiotics, completed course. Trend temperature curve and WCC Fluid conservative measures as tolerated by renal function and hemodynamics Re-consult Renal with worsening renal function Daily SBTs as tolerated, her mental staus precludes liberation from MVS Continue to avoid nephrotoxins, closely monitor renal function, dose all medications for renal function Supportive transfusions as indicated - VAP bundle addressed -Aspiration precautions, HOB >40 -lung protective strategies-ARDS. net - continue bronchodilators with pulmonary hygiene per RT - wean per pulmonary driven protocols otherwise - continue to avoid benzodiazepines, reduce the possibility of delirium - prn analgesia per CPOT score - Continue to wean supplemental oxygen for target O2 sats > 92% -Continue to hold sedation, if needed intermittent dosing - conservative fluid management measures as tolerated by hemodynamics and renal function - Bronchodilators with pulmonary hygiene per RT - Accuchecks with glycemic control per SSI (While critically ill target blood glucose of 140-180 mg/dL; avoid hypoglycemia) - Maintenance of sleep-wake cycle, avoid delirium - Aspiration precautions, HOB >40 - Stress ulcer prophylaxis -Famotidine - Mobility protocol, off loading and skin assessment for pressure ulcer p revention - Supportive transfusions as indicated to keep HgB >7g/dL COVID SPECIFIC INTERVENTIONS -Airborne, contact isolation for COVID per facility protocols - s/p Remdesivir -IV steroids-Dexamethasone -Trend d-dimer,and other inflammatory markers per facility protocol -Convalescent plasma therapy per facility protocol -Continue all supportive care Discussed with the ICU team-RT,RN, Clinical Pharmacist, Case management Life threatening condition- Cardiopulmonary arrest with ROSC, Sepsis ;COVID 19 acute hypoxemic respiratory failure on MVS Mortality/Morbidity- High Complexity of medical decision making- High CONDITION: CRITICAL PROGNOSIS: GUARDED CODE STATUS: FULL CODE The high probability of a clinically significant, sudden or life-threatening deterioration of the [respiratory & neurology, renal ] system(s) required my full and direct attention, intervention and personal management. The aggregate critical care time was [34] minutes without overlap. Time includes spent on; [x] Data Review and interpretation [x] Patient assessment and monitoring of vital signs [x] Documentation [x] Medication orders and management Subjective Date of service: 07/09/20 Principal diagnosis: Ac hypoxemic resp failure; COVID-19; pneumonia; CHF; Pulm HTN; OHS; DM II Interval history: Patient is seen today for: Ac hypoxemic resp failure s/p Cardiopulmonary arrest with ROSC; Coronavirus-19 infection; pneumonia; Pulmonary edema; Bilateral pleural effusions; CHF; Morbid obesity; pulmonary hypertension; OHS; DM II Seen and examined at bedside; 24hour events reviewed; nursing and respiratory care staff consulted; Vitals, labs,medications, chart reviewed. Remains on MVS, no fevers, Tolerating PS trials 10/+5. Mental status changes persist, but grimaces to pain ad will open her eyes with sternal rub Tolerating tube feedings, UOP 850ml overnight Objective Vital Signs - 12hr 07/08/20 07/08/20 07/08/20 23:11 23:15 23:21 Temperature Pulse Rate 72 76 74 Pulse Rate [ From Monitor] Respiratory 12 15 14 Rate Blood Pressure 127/53 127/53 127/53 O2 Sat by Pulse 100 100 100 Oximetry 07/08/20 07/08/20 07/08/20 23:25 23:31 23:35 Temperature Pulse Rate 75 77 75 Pulse Rate [ From Monitor] Respiratory 11 L 12 15 Rate Blood Pressure 127/53 153/76 153/76 O2 Sat by Pulse 100 97 100 Oximetry 07/08/20 07/08/20 07/08/20 23:41 23:45 23:51 Temperature Pulse Rate 78 78 76 Pulse Rate [ From Monitor] Respiratory 12 11 L 15 Rate Blood Pressure 153/76 153/76 153/76 O2 Sat by Pulse 100 100 100 Oximetry 07/08/20 07/09/20 07/09/20 23:55 00:00 00:05 Temperature 97.9 F Pulse Rate 75 75 74 Pulse Rate [ 75 From Monitor] Respiratory 13 12 13 Rate Blood Pressure 153/76 164/62 155/71 O2 Sat by Pulse 100 100 100 Oximetry 07/09/20 07/09/20 07/09/20 00:11 00:15 00:21 Temperature Pulse Rate 77 74 76 Pulse Rate [ From Monitor] Respiratory 14 17 13 Rate Blood Pressure 155/71 155/71 153/76 O2 Sat by Pulse 100 100 100 Oximetry 07/09/20 07/09/20 07/09/20 00:25 00:30 00:35 Temperature Pulse Rate 75 74 76 Pulse Rate [ From Monitor] Respiratory 12 9 L 13 Rate Blood Pressure 153/76 161/65 161/65 O2 Sat by Pulse 100 97 100 Oximetry 07/09/20 07/09/20 07/09/20 00:41 00:45 00:51 Temperature Pulse Rate 73 76 76 Pulse Rate [ From Monitor] Respiratory 13 11 L 15 Rate Blood Pressure 161/65 161/65 155/71 O2 Sat by Pulse 100 100 100 Oximetry 07/09/20 07/09/20 07/09/20 00:55 01:00 01:05 Temperature Pulse Rate 77 76 76 Pulse Rate [ From Monitor] Respiratory 13 17 15 Rate Blood Pressure 155/71 149/73 149/73 O2 Sat by Pulse 100 97 100 Oximetry 07/09/20 07/09/20 07/09/20 01:11 01:15 01:21 Temperature Pulse Rate 77 73 72 Pulse Rate [ From Monitor] Respiratory 12 11 L 11 L Rate Blood Pressure 149/73 149/73 149/73 O2 Sat by Pulse 100 100 100 Oximetry 07/09/20 07/09/20 07/09/20 01:25 01:30 01:35 Temperature Pulse Rate 70 73 76 Pulse Rate [ From Monitor] Respiratory 13 15 13 Rate Blood Pressure 149/73 160/60 160/60 O2 Sat by Pulse 100 96 100 Oximetry 07/09/20 07/09/20 07/09/20 01:41 01:45 01:51 Temperature Pulse Rate 76 74 75 Pulse Rate [ From Monitor] Respiratory 9 L 12 15 Rate Blood Pressure 160/60 160/60 160/60 O2 Sat by Pulse 100 100 100 Oximetry 07/09/20 07/09/20 07/09/20 01:55 02:01 02:05 Temperature Pulse Rate 71 76 73 Pulse Rate [ From Monitor] Respiratory 11 L 15 12 Rate Blood Pressure 160/60 164/62 164/62 O2 Sat by Pulse 100 97 100 Oximetry 07/09/20 07/09/20 07/09/20 02:10 02:15 02:21 Temperature Pulse Rate 73 74 73 Pulse Rate [ From Monitor] Respiratory 15 14 11 L Rate Blood Pressure 160/60 164/62 164/62 O2 Sat by Pulse 100 100 100 Oximetry 07/09/20 07/09/20 07/09/20 02:25 02:30 02:35 Temperature Pulse Rate 71 73 71 Pulse Rate [ From Monitor] Respiratory 11 L 14 17 Rate Blood Pressure 164/62 156/61 156/61 O2 Sat by Pulse 100 97 100 Oximetry 07/09/20 07/09/20 07/09/20 02:41 02:45 02:51 Temperature Pulse Rate 74 74 74 Pulse Rate [ From Monitor] Respiratory 15 11 L 11 L Rate Blood Pressure 156/61 156/61 164/62 O2 Sat by Pulse 100 100 100 Oximetry 07/09/20 07/09/20 07/09/20 02:55 03:01 03:05 Temperature Pulse Rate 74 74 74 Pulse Rate [ From Monitor] Respiratory 15 11 L 14 Rate Blood Pressure 164/62 157/58 157/58 O2 Sat by Pulse 100 98 100 Oximetry 07/09/20 07/09/20 07/09/20 03:11 03:15 03:21 Temperature Pulse Rate 77 76 71 Pulse Rate [ From Monitor] Respiratory 13 11 L 11 L Rate Blood Pressure 157/58 157/58 157/58 O2 Sat by Pulse 100 100 100 Oximetry 07/09/20 07/09/20 07/09/20 03:25 03:31 03:35 Temperature Pulse Rate 71 70 78 Pulse Rate [ From Monitor] Respiratory 11 L 12 16 Rate Blood Pressure 157/58 143/56 143/56 O2 Sat by Pulse 100 97 100 Oximetry 07/09/20 07/09/20 07/09/20 03:41 03:45 03:51 Temperature Pulse Rate 72 74 73 Pulse Rate [ From Monitor] Respiratory 12 14 14 Rate Blood Pressure 143/56 143/56 143/56 O2 Sat by Pulse 100 100 100 Oximetry 07/09/20 07/09/20 07/09/20 03:55 04:00 04:01 Temperature 98.3 F Pulse Rate 76 71 78 Pulse Rate [ 71 From Monitor] Respiratory 15 13 18 Rate Blood Pressure 143/56 143/74 O2 Sat by Pulse 100 100 95 Oximetry 07/09/20 07/09/20 07/09/20 04:05 04:11 04:15 Temperature Pulse Rate 77 80 77 Pulse Rate [ From Monitor] Respiratory 21 17 14 Rate Blood Pressure 143/74 143/74 143/74 O2 Sat by Pulse 99 98 99 Oximetry 07/09/20 07/09/20 07/09/20 04:21 04:25 04:30 Temperature Pulse Rate 75 73 73 Pulse Rate [ From Monitor] Respiratory 13 12 13 Rate Blood Pressure 143/74 143/74 148/57 O2 Sat by Pulse 99 99 97 Oximetry 07/09/20 07/09/20 07/09/20 04:35 04:41 04:45 Temperature Pulse Rate 74 75 73 Pulse Rate [ From Monitor] Respiratory 13 15 12 Rate Blood Pressure 148/57 148/57 148/57 O2 Sat by Pulse 100 100 100 Oximetry 07/09/20 07/09/20 07/09/20 04:51 04:55 05:00 Temperature Pulse Rate 76 72 73 Pulse Rate [ From Monitor] Respiratory 11 L 12 12 Rate Blood Pressure 148/57 148/57 138/62 O2 Sat by Pulse 100 100 97 Oximetry 07/09/20 07/09/20 07/09/20 05:05 05:11 05:13 Temperature Pulse Rate 73 72 73 Pulse Rate [ From Monitor] Respiratory 14 13 Rate Blood Pressure 138/62 138/62 138/62 O2 Sat by Pulse 100 100 100 Oximetry 07/09/20 07/09/20 07/09/20 05:15 05:21 05:25 Temperature Pulse Rate 74 75 76 Pulse Rate [ From Monitor] Respiratory 14 16 13 Rate Blood Pressure 138/62 138/62 138/62 O2 Sat by Pulse 100 100 100 Oximetry 07/09/20 07/09/20 07/09/20 05:30 05:35 05:41 Temperature Pulse Rate 76 73 77 Pulse Rate [ From Monitor] Respiratory 16 12 14 Rate Blood Pressure 145/61 145/61 145/61 O2 Sat by Pulse 97 100 100 Oximetry 07/09/20 07/09/20 07/09/20 05:45 05:51 05:55 Temperature Pulse Rate 74 78 75 Pulse Rate [ From Monitor] Respiratory 12 13 12 Rate Blood Pressure 145/61 145/61 145/61 O2 Sat by Pulse 100 100 100 Oximetry 07/09/20 07/09/20 07/09/20 06:00 06:05 06:11 Temperature Pulse Rate 73 76 77 Pulse Rate [ From Monitor] Respiratory 12 13 11 L Rate Blood Pressure 155/60 155/60 155/60 O2 Sat by Pulse 97 100 100 Oximetry 07/09/20 07/09/20 07/09/20 06:15 06:17 06:21 Temperature Pulse Rate 75 74 73 Pulse Rate [ From Monitor] Respiratory 13 12 Rate Blood Pressure 155/60 155/60 155/60 O2 Sat by Pulse 100 100 Oximetry 07/09/20 07/09/20 07/09/20 06:25 06:31 06:35 Temperature Pulse Rate 74 76 73 Pulse Rate [ From Monitor] Respiratory 12 13 14 Rate Blood Pressure 155/60 153/61 153/61 O2 Sat by Pulse 100 97 100 Oximetry 07/09/20 07/09/20 07/09/20 06:41 06:45 06:51 Temperature Pulse Rate 72 70 74 Pulse Rate [ From Monitor] Respiratory 13 12 16 Rate Blood Pressure 153/61 153/61 153/61 O2 Sat by Pulse 100 100 100 Oximetry 07/09/20 07/09/20 07/09/20 06:55 07:00 07:05 Temperature Pulse Rate 73 72 74 Pulse Rate [ From Monitor] Respiratory 14 12 11 L Rate Blood Pressure 153/61 161/60 161/60 O2 Sat by Pulse 100 98 100 Oximetry 07/09/20 07/09/20 07/09/20 07:11 07:15 07:20 Temperature Pulse Rate 72 70 70 Pulse Rate [ From Monitor] Respiratory 14 12 12 Rate Blood Pressure 161/60 161/60 161/60 O2 Sat by Pulse 100 100 100 Oximetry 07/09/20 07/09/20 07/09/20 07:26 07:30 07:35 Temperature Pulse Rate 75 72 75 Pulse Rate [ From Monitor] Respiratory 11 L 12 12 Rate Blood Pressure 161/60 154/66 154/66 O2 Sat by Pulse 100 98 100 Oximetry 07/09/20 07/09/20 07/09/20 07:41 07:45 07:51 Temperature Pulse Rate 73 73 75 Pulse Rate [ From Monitor] Respiratory 12 13 13 Rate Blood Pressure 161/60 161/60 161/60 O2 Sat by Pulse 100 100 100 Oximetry 07/09/20 07/09/20 07/09/20 07:55 08:00 08:05 Temperature 97.4 F L Pulse Rate 76 75 75 Pulse Rate [ 74 From Monitor] Respiratory 17 11 L 13 Rate Blood Pressure 161/60 161/65 161/65 O2 Sat by Pulse 100 97 100 Oximetry 07/09/20 07/09/2007/09/20 08:11 08:15 08:21 Temperature Pulse Rate 72 74 75 Pulse Rate [ From Monitor] Respiratory 13 16 15 Rate Blood Pressure 161/65 154/66 154/66 O2 Sat by Pulse 100 100 100 Oximetry 07/09/20 07/09/20 07/09/20 08:25 08:30 08:35 Temperature Pulse Rate 72 73 73 Pulse Rate [ From Monitor] Respiratory 12 14 12 Rate Blood Pressure 154/66 161/63 161/63 O2 Sat by Pulse 100 97 100 Oximetry 07/09/20 07/09/20 07/09/20 08:41 08:45 08:51 Temperature Pulse Rate 76 75 78 Pulse Rate [ From Monitor] Respiratory 15 14 16 Rate Blood Pressure 161/63 161/63 161/63 O2 Sat by Pulse 100 100 100 Oximetry 07/09/20 07/09/20 07/09/20 08:55 09:00 09:05 Temperature Pulse Rate 75 75 78 Pulse Rate [ From Monitor] Respiratory 17 15 12 Rate Blood Pressure 161/63 150/63 150/63 O2 Sat by Pulse 100 97 100 Oximetry 07/09/20 07/09/20 07/09/20 09:11 09:15 09:21 Temperature Pulse Rate 76 76 74 Pulse Rate [ From Monitor] Respiratory 16 14 19 Rate Blood Pressure 150/63 161/63 161/63 O2 Sat by Pulse 100 100 100 Oximetry 07/09/20 07/09/20 07/09/20 09:25 09:31 09:35 Temperature Pulse Rate 74 76 77 Pulse Rate [ From Monitor] Respiratory 14 13 19 Rate Blood Pressure 161/63 150/58 150/58 O2 Sat by Pulse 100 98 100 Oximetry 07/09/20 07/09/20 07/09/20 09:41 09:45 09:50 Temperature Pulse Rate 77 76 76 Pulse Rate [ From Monitor] Respiratory 28 H 19 Rate Blood Pressure 150/58 150/58 150/58 O2 Sat by Pulse 100 100 Oximetry 07/09/20 07/09/20 07/09/20 09:51 09:55 10:01 Temperature Pulse Rate 75 71 76 Pulse Rate [ From Monitor] Respiratory 11 L 13 9 L Rate Blood Pressure 150/58 150/58 151/56 O2 Sat by Pulse 100 100 98 Oximetry 10/01/20 10/01/20 10/01/20 10:05 10:11 10:15 Temperature Pulse Rate 73 75 79 Pulse Rate [ From Monitor] Respiratory 26 H 20 25 H Rate Blood Pressure 151/56 151/56 151/56 O2 Sat by Pulse 100 100 100 Oximetry 07/09/20 07/09/20 07/09/20 10:21 10:25 10:31 Temperature Pulse Rate 77 72 75 Pulse Rate [ From Monitor] Respiratory 25 H 12 14 Rate Blood Pressure 151/56 151/56 156/59 O2 Sat by Pulse 100 100 97 Oximetry 07/09/20 07/09/20 07/09/20 10:35 10:41 10:45 Temperature Pulse Rate 73 72 74 Pulse Rate [ From Monitor] Respiratory 13 16 10 L Rate Blood Pressure 156/59 156/59 156/59 O2 Sat by Pulse 100 100 100 Oximetry 07/09/20 07/09/20 07/09/20 10:51 10:55 11:01 Temperature Pulse Rate 78 77 77 Pulse Rate [ From Monitor] Respiratory 17 11 L 13 Rate Blood Pressure 156/59 156/59 146/64 O2 Sat by Pulse 100 100 97 Oximetry Constitutional: no acute distress, other (elderly looking obese female on HFNC with mildly increased respiratory effort at rest on MVS) Eyes: non-icteric ENT: oropharynx dry, other (ETT 23-24 cm AYAN) Neck: supple, no lymphadenopathy, no JVD, other (large neck circumference) Effort: mildly labored Ascultation: Bilateral: clear, diminished breath sounds, rales, rhonchi (scant) Percussion: Bilateral: not dull Cardiovascular: regular rate and rhythm, other (S1,S2) Gastrointestinal: normoactive bowel sounds, soft, non-tender, non-distended Integumentary: normal Extremities: no cyanosis, no edema, pink and warm, pulses normal, no ischemia or petechiae Neurologic: pupils equal and round, unable to assess, other (minimally res ponsive) Psychiatric: other (unable to assess re: AMS) CBC and BMP: 07/08/20 04:14 07/08/20 04:14 ABG, PT/INR, D-dimer: ABG ABG pH 7.32 pH Units (7.350-7.450) L 07/05/20 13:05 POC ABG pCO2 35.8 mmHg (32.0-48.0) 07/01/20 05:02 ABG pCO2 47.0 mm Hg 07/05/20 13:05 POC ABG pO2 90.8 mmHg (83-108) 07/01/20 05:02 ABG pO2 78.3 mm Hg (80.0-90.0) L 07/05/20 13:05 POC ABG HCO3 22.1 07/01/20 05:02 ABG O2 Saturation 96.1 % (95.0-99.0) 07/05/20 13:05 PT/INR, D-dimer PT 14.2 Sec. (12.2-14.9) 05/29/20 15:10 INR 1.08 (0.87-1.13) 05/29/20 15:10 D-Dimer 2310.15 ng/mlDDU (0-234) H 06/29/20 14:45 Abnormal lab findings: Abnormal Labs 05/28/20 05/28/20 05/28/20 13:29 13:47 13:47 WBC RBC Hgb Hct MCHC RDW 15.3 H Lymph % (Auto) [place] % (Auto) Eos % (Auto) Lymph # [place] # Lymph # (Auto) [place] # (Auto) Seg Neutrophils % Seg Neuts % (Manual) Lymphocytes % (Manual) Seg Neutrophils # Seg Neutrophils # Man Lymphocytes # (Manual) Monocytes % (Manual) Eosinophils % (Manual) Monocytes # (Manual) Eosinophils # (Manual) D-Dimer Heparin Anti-Xa Level ABG pH POC ABG pCO2 POC ABG pO2 ABG pO2 ABG HCO3 ABG O2 Saturation ABG Base Excess ABG Hemoglobin ABG Oxyhemoglobin VBG pH Oxyhemoglobin Sodium Potassium 6.6 H* Chloride 109.2 H Carbon Dioxide 17 L BUN 29 H Creatinine 1.3 H Glucose 265 H POC Glucose 248 H Lactic Acid Calcium 8.1 L Ferritin AST 63 H Alkaline Phosphatase Magnesium Lactate Dehydrogenase Total Creatine Kinase 301 H CK-MB (CK-2) 4.3 H C-Reactive Protein Total Protein 5.4 L Albumin 2.6 L Troponin T HDL Cholesterol Urine WBC (Auto) Urine Creatinine Urine Total Protein Coronavirus (PCR) Crossmatch 05/28/20 05/28/20 05/28/20 13:47 13:47 14:46 WBC RBC Hgb Hct MCHC RDW Lymph % (Auto) [place] % (Auto) Eos % (Auto) Lymph # [place] # Lymph # (Auto) [place] # (Auto) Seg Neutrophils % Seg Neuts % (Manual) Lymphocytes % (Manual) Seg Neutrophils # Seg Neutrophils # Man Lymphocytes # (Manual) Monocytes % (Manual) Eosinophils % (Manual) Monocytes # (Manual) Eosinophils # (Manual) D-Dimer Heparin Anti-Xa Level ABG pH POC ABG pCO2 POC ABG pO2 ABG pO2 ABG HCO3 ABG O2 Saturation ABG Base Excess ABG Hemoglobin ABG Oxyhemoglobin VBG pH 7.152 L* Oxyhemoglobin Sodium Potassium 7.2 H* Chloride Carbon Dioxide BUN Creatinine Glucose POC Glucose Lactic Acid 3.40 H* Calcium Ferritin AST Alkaline Phosphatase Magnesium Lactate Dehydrogenase Total Creatine Kinase CK-MB (CK-2) C-Reactive Protein Total Protein Albumin Troponin T HDL Cholesterol Urine WBC (Auto) Urine Creatinine Urine Total Protein Coronavirus (PCR) Crossmatch 05/28/20 05/28/20 05/28/20 15:33 15:33 15:51 WBC RBC Hgb Hct MCHC RDW Lymph % (Auto) [place] % (Auto) Eos % (Auto) Lymph # [place] # Lymph # (Auto) [place] # (Auto) Seg Neutrophils % Seg Neuts % (Manual) Lymphocytes % (Manual) Seg Neutrophils # Seg Neutrophils # Man Lymphocytes # (Manual) Monocytes % (Manual) Eosinophils % (Manual) Monocytes # (Manual) Eosinophils # (Manual) D-Dimer 8780.43 H Heparin Anti-Xa Level ABG pH 7.284 L POC ABG pCO2 POC ABG pO2 ABG pO2 273.0 H ABG HCO3 ABG O2 Saturation 99.4 H ABG Base Excess -6.1 L ABG Hemoglobin 17.2 H ABG Oxyhemoglobin VBG pH Oxyhemoglobin Sodium Potassium Chloride Carbon Dioxide BUN Creatinine Glucose 152 H POC Glucose Lactic Acid Calcium Ferritin AST Alkaline Phosphatase Magnesium Lactate Dehydrogenase 365 H Total Creatine Kinase CK-MB (CK-2) C-Reactive Protein Total Protein Albumin Troponin T HDL Cholesterol Urine WBC (Auto) Urine Creatinine Urine Total Protein Coronavirus (PCR) Crossmatch 05/28/20 05/28/20 05/28/20 16:30 20:41 23:20 WBC RBC Hgb Hct MCHC RDW Lymph % (Auto) [place] % (Auto) Eos % (Auto) Lymph # [place] # Lymph # (Auto) [place] # (Auto) Seg Neutrophils % Seg Neuts % (Manual) Lymphocytes % (Manual) Seg Neutrophils # Seg Neutrophils # Man Lymphocytes # (Manual) Monocytes % (Manual) Eosinophils % (Manual) Monocytes # (Manual) Eosinophils # (Manual) D-Dimer Heparin Anti-Xa Level ABG pH POC ABG pCO2 POC ABG pO2 ABG pO2 ABG HCO3 ABG O2 Saturation ABG Base Excess ABG Hemoglobin ABG Oxyhemoglobin VBG pH Oxyhemoglobin Sodium Potassium Chloride Carbon Dioxide BUN Creatinine Glucose POC Glucose 225 H 224 H Lactic Acid Calcium Ferritin AST Alkaline Phosphatase Magnesium Lactate Dehydrogenase Total Creatine Kinase CK-MB (CK-2) C-Reactive Protein Total Protein Albumin Troponin T HDL Cholesterol Urine WBC (Auto) 17.0 H Urine Creatinine Urine Total Protein Coronavirus (PCR) Crossmatch 05/28/20 05/29/20 05/29/20 Unknown 04:35 04:43 WBC RBC 3.48 L Hgb 9.8 L Hct 29.4 L MCHC RDW 16.0 H Lymph % (Auto) 7.4 L [place] % (Auto) Eos % (Auto) Lymph # 0.7 L [place] # Lymph # (Auto) [place] # (Auto) Seg Neutrophils % 89.1 H Seg Neuts % (Manual) Lymphocytes % (Manual) Seg Neutrophils # 8.1 H Seg Neutrophils # Man Lymphocytes # (Manual) Monocytes % (Manual) Eosinophils % (Manual) Monocytes # (Manual) Eosinophils # (Manual) D-Dimer Heparin Anti-Xa Level ABG pH POC ABG pCO2 POC ABG pO2 ABG pO2 ABG HCO3 19.3 L ABG O2 Saturation ABG Base Excess -4.5 L ABG Hemoglobin 9.7 L ABG Oxyhemoglobin VBG pH Oxyhemoglobin Sodium Potassium Chloride Carbon Dioxide BUN Creatinine Glucose POC Glucose Lactic Acid Calcium Ferritin AST Alkaline Phosphatase Magnesium Lactate Dehydrogenase Total Creatine Kinase CK-MB (CK-2) C-Reactive Protein Total Protein Albumin Troponin T HDL Cholesterol Urine WBC (Auto) Urine Creatinine Urine Total Protein Coronavirus (PCR) Positive A Crossmatch 05/29/20 05/29/20 05/29/20 04:43 15:10 17:17 WBC RBC Hgb 9.3 L Hct 28.7 L MCHC RDW Lymph % (Auto) [place] % (Auto) Eos % (Auto) Lymph # [place] # Lymph # (Auto) [place] # (Auto) Seg Neutrophils % Seg Neuts % (Manual) Lymphocytes % (Manual) Seg Neutrophils # Seg Neutrophils # Man Lymphocytes # (Manual) Monocytes % (Manual) Eosinophils % (Manual) Monocytes # (Manual) Eosinophils # (Manual) D-Dimer Heparin Anti-Xa Level ABG pH POC ABG pCO2 POC ABG pO2 ABG pO2 ABG HCO3 ABG O2 Saturation ABG Base Excess ABG Hemoglobin ABG Oxyhemoglobin VBG pH Oxyhemoglobin Sodium Potassium Chloride 110.2 H Carbon Dioxide 18 L BUN 32 H Creatinine 1.4 H Glucose 180 H POC Glucose 147 H Lactic Acid Calcium Ferritin AST Alkaline Phosphatase Magnesium Lactate Dehydrogenase Total Creatine Kinase CK-MB (CK-2) C-Reactive Protein Total Protein Albumin Troponin T HDL Cholesterol Urine WBC (Auto) Urine Creatinine Urine Total Protein Coronavirus (PCR) Crossmatch 05/30/20 05/30/20 05/30/20 00:08 00:12 04:15 WBC RBC Hgb Hct MCHC RDW Lymph % (Auto) [place] % (Auto) Eos % (Auto) Lymph # [place] # Lymph # (Auto) [place] # (Auto) Seg Neutrophils % Seg Neuts % (Manual) Lymphocytes % (Manual) Seg Neutrophils # Seg Neutrophils # Man Lymphocytes # (Manual) Monocytes % (Manual) Eosinophils % (Manual) Monocytes # (Manual) Eosinophils # (Manual) D-Dimer Heparin Anti-Xa Level 0.71 H ABG pH 7.460 H POC ABG pCO2 POC ABG pO2 ABG pO2 106.0 H ABG HCO3 18.9 L ABG O2 Saturation ABG Base Excess -4.4 L ABG Hemoglobin 6.8 L ABG Oxyhemoglobin VBG pH Oxyhemoglobin Sodium Potassium Chloride Carbon Dioxide BUN Creatinine Glucose POC Glucose 195 H Lactic Acid Calcium Ferritin AST Alkaline Phosphatase Magnesium Lactate Dehydrogenase Total Creatine Kinase CK-MB (CK-2) C-Reactive Protein Total Protein Albumin Troponin T HDL Cholesterol Urine WBC (Auto) Urine Creatinine Urine Total Protein Coronavirus (PCR) Crossmatch 05/30/20 05/30/20 05/30/20 06:07 08:37 12:33 WBC RBC Hgb Hct MCHC RDW Lymph % (Auto) [place] % (Auto) Eos % (Auto) Lymph # [place] # Lymph # (Auto) [place] # (Auto) Seg Neutrophils % Seg Neuts % (Manual) Lymphocytes % (Manual) Seg Neutrophils # Seg Neutrophils # Man Lymphocytes # (Manual) Monocytes % (Manual) Eosinophils % (Manual) Monocytes # (Manual) Eosinophils # (Manual) D-Dimer Heparin Anti-Xa Level 0.85 H ABG pH POC ABG pCO2 POC ABG pO2 ABG pO2 ABG HCO3 ABG O2 Saturation ABG Base Excess ABG Hemoglobin ABG Oxyhemoglobin VBG pH Oxyhemoglobin Sodium Potassium Chloride Carbon Dioxide BUN Creatinine Glucose POC Glucose 182 H 187 H Lactic Acid Calcium Ferritin AST Alkaline Phosphatase Magnesium Lactate Dehydrogenase Total Creatine Kinase CK-MB (CK-2) C-Reactive Protein Total Protein Albumin Troponin T HDL Cholesterol Urine WBC (Auto) Urine Creatinine Urine Total Protein Coronavirus (PCR) Crossmatch 05/30/20 05/30/20 05/30/20 15:58 17:57 23:36 WBC RBC Hgb Hct MCHC RDW Lymph % (Auto) [place] % (Auto) Eos % (Auto) Lymph # [place] # Lymph # (Auto) [place] # (Auto) Seg Neutrophils % Seg Neuts % (Manual) Lymphocytes % (Manual) Seg Neutrophils # Seg Neutrophils # Man Lymphocytes # (Manual) Monocytes % (Manual) Eosinophils % (Manual) Monocytes # (Manual) Eosinophils # (Manual) D-Dimer Heparin Anti-Xa Level 1.03 H ABG pH POC ABG pCO2 POC ABG pO2 ABG pO2 ABG HCO3 ABG O2 Saturation ABG Base Excess ABG Hemoglobin ABG Oxyhemoglobin VBG pH Oxyhemoglobin Sodium Potassium Chloride Carbon Dioxide BUN Creatinine Glucose POC Glucose 208 H 185 H Lactic Acid Calcium Ferritin AST Alkaline Phosphatase Magnesium Lactate Dehydrogenase Total Creatine Kinase CK-MB (CK-2) C-Reactive Protein Total Protein Albumin Troponin T HDL Cholesterol Urine WBC (Auto) Urine Creatinine Urine Total Protein Coronavirus (PCR) Crossmatch 05/31/20 05/31/20 05/31/20 02:16 03:55 06:16 WBC RBC Hgb 9.2 L Hct 27.5 L MCHC RDW Lymph % (Auto) [place] % (Auto) Eos % (Auto) Lymph # [place] # Lymph # (Auto) [place] # (Auto) Seg Neutrophils % Seg Neuts % (Manual) Lymphocytes % (Manual) Seg Neutrophils # Seg Neutrophils # Man Lymphocytes # (Manual) Monocytes % (Manual) Eosinophils % (Manual) Monocytes # (Manual) Eosinophils # (Manual) D-Dimer Heparin Anti-Xa Level ABG pH POC ABG pCO2 POC ABG pO2 ABG pO2 94.7 H ABG HCO3 18.6 L ABG O2 Saturation ABG Base Excess -5.5 L ABG Hemoglobin 7.9 L ABG Oxyhemoglobin VBG pH Oxyhemoglobin Sodium Potassium Chloride Carbon Dioxide BUN Creatinine Glucose POC Glucose 160 H Lactic Acid Calcium Ferritin AST Alkaline Phosphatase Magnesium Lactate Dehydrogenase Total Creatine Kinase CK-MB (CK-2) C-Reactive Protein Total Protein Albumin Troponin T HDL Cholesterol Urine WBC (Auto) Urine Creatinine Urine Total Protein Coronavirus (PCR) Crossmatch 05/31/20 05/31/20 05/31/20 12:20 13:03 18:13 WBC RBC Hgb Hct MCHC RDW Lymph % (Auto) [place] % (Auto) Eos % (Auto) Lymph # [place] # Lymph # (Auto) [place] # (Auto) Seg Neutrophils % Seg Neuts % (Manual) Lymphocytes % (Manual) Seg Neutrophils # Seg Neutrophils # Man Lymphocytes # (Manual) Monocytes % (Manual) Eosinophils % (Manual) Monocytes # (Manual) Eosinophils # (Manual) D-Dimer Heparin Anti-Xa Level ABG pH POC ABG pCO2 POC ABG pO2 ABG pO2 ABG HCO3 ABG O2 Saturation ABG Base Excess ABG Hemoglobin ABG Oxyhemoglobin VBG pH Oxyhemoglobin Sodium Potassium Chloride Carbon Dioxide 18 L BUN 48 H Creatinine 1.6 H Glucose 115 H POC Glucose 128 H 159 H Lactic Acid Calcium 8.3 L Ferritin AST Alkaline Phosphatase Magnesium Lactate Dehydrogenase Total Creatine Kinase CK-MB (CK-2) C-Reactive Protein Total Protein 5.4 L Albumin 2.4 L Troponin T HDL Cholesterol Urine WBC (Auto) Urine Creatinine Urine Total Protein Coronavirus (PCR) Crossmatch 05/31/20 06/01/20 06/01/20 23:51 04:00 05:48 WBC RBC Hgb Hct MCHC RDW Lymph % (Auto) [place] % (Auto) Eos % (Auto) Lymph # [place] # Lymph # (Auto) [place] # (Auto) Seg Neutrophils % Seg Neuts % (Manual) Lymphocytes % (Manual) Seg Neutrophils # Seg Neutrophils # Man Lymphocytes # (Manual) Monocytes % (Manual) Eosinophils % (Manual) Monocytes # (Manual) Eosinophils # (Manual) D-Dimer Heparin Anti-Xa Level ABG pH POC ABG pCO2 POC ABG pO2 ABG pO2 109.8 H ABG HCO3 18.8 L ABG O2 Saturation ABG Base Excess -5.9 L ABG Hemoglobin 7.8 L ABG Oxyhemoglobin VBG pH Oxyhemoglobin Sodium Potassium Chloride Carbon Dioxide BUN Creatinine Glucose POC Glucose 171 H 133 H Lactic Acid Calcium Ferritin AST Alkaline Phosphatase Magnesium Lactate Dehydrogenase Total Creatine Kinase CK-MB (CK-2) C-Reactive Protein Total Protein Albumin Troponin T HDL Cholesterol Urine WBC (Auto) Urine Creatinine Urine Total Protein Coronavirus (PCR) Crossmatch 06/01/20 06/01/20 06/02/20 12:28 17:29 00:08 WBC RBC Hgb Hct MCHC RDW Lymph % (Auto) [place] % (Auto) Eos % (Auto) Lymph # [place] # Lymph # (Auto) [place] # (Auto) Seg Neutrophils % Seg Neuts % (Manual) Lymphocytes % (Manual) Seg Neutrophils # Seg Neutrophils # Man Lymphocytes # (Manual) Monocytes % (Manual) Eosinophils % (Manual) Monocytes # (Manual) Eosinophils # (Manual) D-Dimer Heparin Anti-Xa Level ABG pH POC ABG pCO2 POC ABG pO2 ABG pO2 ABG HCO3 ABG O2 Saturation ABG Base Excess ABG Hemoglobin ABG Oxyhemoglobin VBG pH Oxyhemoglobin Sodium Potassium Chloride Carbon Dioxide BUN Creatinine Glucose POC Glucose 199 H 209 H 162 H Lactic Acid Calcium Ferritin AST Alkaline Phosphatase Magnesium Lactate Dehydrogenase Total Creatine Kinase CK-MB (CK-2) C-Reactive Protein Total Protein Albumin Troponin T HDL Cholesterol Urine WBC (Auto) Urine Creatinine Urine Total Protein Coronavirus (PCR) Crossmatch 06/02/20 06/02/20 06/02/20 04:20 04:20 04:44 WBC RBC Hgb 10.0 L Hct MCHC RDW Lymph % (Auto) [place] % (Auto) Eos % (Auto) Lymph # [place] # Lymph # (Auto) [place] # (Auto) Seg Neutrophils % Seg Neuts % (Manual) Lymphocytes % (Manual) Seg Neutrophils # Seg Neutrophils # Man Lymphocytes # (Manual) Monocytes % (Manual) Eosinophils % (Manual) Monocytes # (Manual) Eosinophils # (Manual) D-Dimer Heparin Anti-Xa Level 0.10 L ABG pH POC ABG pCO2 POC ABG pO2 ABG pO2 150.6 H ABG HCO3 ABG O2 Saturation ABG Base Excess -4.1 L ABG Hemoglobin 11.8 L ABG Oxyhemoglobin VBG pH Oxyhemoglobin Sodium Potassium Chloride Carbon Dioxide BUN Creatinine Glucose POC Glucose Lactic Acid Calcium Ferritin AST Alkaline Phosphatase Magnesium Lactate Dehydrogenase Total Creatine Kinase CK-MB (CK-2) C-Reactive Protein Total Protein Albumin Troponin T HDL Cholesterol Urine WBC (Auto) Urine Creatinine Urine Total Protein Coronavirus (PCR) Crossmatch 06/02/20 06/02/20 06/02/20 05:53 12:04 13:49 WBC RBC Hgb Hct MCHC RDW Lymph % (Auto) [place] % (Auto) Eos % (Auto) Lymph # [place] # Lymph # (Auto) [place] # (Auto) Seg Neutrophils % Seg Neuts % (Manual) Lymphocytes % (Manual) Seg Neutrophils # Seg Neutrophils # Man Lymphocytes # (Manual) Monocytes % (Manual) Eosinophils % (Manual) Monocytes # (Manual) Eosinophils # (Manual) D-Dimer Heparin Anti-Xa Level 0.28 L ABG pH POC ABG pCO2 POC ABG pO2 ABG pO2 ABG HCO3 ABG O2 Saturation ABG Base Excess ABG Hemoglobin ABG Oxyhemoglobin VBG pH Oxyhemoglobin Sodium Potassium Chloride Carbon Dioxide BUN Creatinine Glucose POC Glucose 149 H 220 H Lactic Acid Calcium Ferritin AST Alkaline Phosphatase Magnesium Lactate Dehydrogenase Total Creatine Kinase CK-MB (CK-2) C-Reactive Protein Total Protein Albumin Troponin T HDL Cholesterol Urine WBC (Auto) Urine Creatinine Urine Total Protein Coronavirus (PCR) Crossmatch 06/02/20 06/02/20 06/03/20 13:49 18:31 00:42 WBC RBC Hgb Hct MCHC RDW Lymph % (Auto) [place] % (Auto) Eos % (Auto) Lymph # [place] # Lymph # (Auto) [place] # (Auto) Seg Neutrophils % Seg Neuts % (Manual) Lymphocytes % (Manual) Seg Neutrophils # Seg Neutrophils # Man Lymphocytes # (Manual) Monocytes % (Manual) Eosinophils % (Manual) Monocytes # (Manual) Eosinophils # (Manual) D-Dimer 769.68 H Heparin Anti-Xa Level ABG pH POC ABG pCO2 POC ABG pO2 ABG pO2 ABG HCO3 ABG O2 Saturation ABG Base Excess ABG Hemoglobin ABG Oxyhemoglobin VBG pH Oxyhemoglobin Sodium Potassium Chloride Carbon Dioxide BUN Creatinine Glucose POC Glucose 225 H 212 H Lactic Acid Calcium Ferritin AST Alkaline Phosphatase Magnesium Lactate Dehydrogenase Total Creatine Kinase CK-MB (CK-2) C-Reactive Protein Total Protein Albumin Troponin T HDL Cholesterol Urine WBC (Auto) Urine Creatinine Urine Total Protein Coronavirus (PCR) Crossmatch 06/03/20 06/03/20 06/03/20 05:16 05:16 05:25 WBC 11.4 H RBC Hgb Hct MCHC RDW 16.4 H Lymph % (Auto) [place] % (Auto) Eos % (Auto) Lymph # [place] # Lymph # (Auto) [place] # (Auto) Seg Neutrophils % Seg Neuts % (Manual) Lymphocytes % (Manual) Seg Neutrophils # Seg Neutrophils # Man Lymphocytes # (Manual) Monocytes % (Manual) Eosinophils % (Manual) Monocytes # (Manual) Eosinophils # (Manual) D-Dimer Heparin Anti-Xa Level ABG pH POC ABG pCO2 POC ABG pO2 ABG pO2 160.9 H ABG HCO3 19.4 L ABG O2 Saturation ABG Base Excess -4.9 L ABG Hemoglobin 7.0 L ABG Oxyhemoglobin VBG pH Oxyhemoglobin Sodium Potassium Chloride Carbon Dioxide 18 L BUN 65 H Creatinine 2.0 H Glucose 175 H POC Glucose Lactic Acid Calcium 8.0 L Ferritin AST Alkaline Phosphatase Magnesium Lactate Dehydrogenase Total Creatine Kinase CK-MB (CK-2) C-Reactive Protein Total Protein 5.5 L Albumin 2.2 L Troponin T HDL Cholesterol Urine WBC (Auto) Urine Creatinine Urine Total Protein Coronavirus (PCR) Crossmatch 06/03/20 06/03/20 06/03/20 06:07 11:58 18:24 WBC RBC Hgb Hct MCHC RDW Lymph % (Auto) [place] % (Auto) Eos % (Auto) Lymph # [place] # Lymph # (Auto) [place] # (Auto) Seg Neutrophils % Seg Neuts % (Manual) Lymphocytes % (Manual) Seg Neutrophils # Seg Neutrophils # Man Lymphocytes # (Manual) Monocytes % (Manual) Eosinophils % (Manual) Monocytes # (Manual) Eosinophils # (Manual) D-Dimer Heparin Anti-Xa Level ABG pH POC ABG pCO2 POC ABG pO2 ABG pO2 ABG HCO3 ABG O2 Saturation ABG Base Excess ABG Hemoglobin ABG Oxyhemoglobin VBG pH Oxyhemoglobin Sodium Potassium Chloride Carbon Dioxide BUN Creatinine Glucose POC Glucose 177 H 163 H 211 H Lactic Acid Calcium Ferritin AST Alkaline Phosphatase Magnesium Lactate Dehydrogenase Total Creatine Kinase CK-MB (CK-2) C-Reactive Protein Total Protein Albumin Troponin T HDL Cholesterol Urine WBC (Auto) Urine Creatinine Urine Total Protein Coronavirus (PCR) Crossmatch 06/03/20 06/03/20 06/04/20 21:50 Unknown 00:26 WBC RBC Hgb Hct MCHC RDW Lymph % (Auto) [place] % (Auto) Eos % (Auto) Lymph # [place] # Lymph # (Auto) [place] # (Auto) Seg Neutrophils % Seg Neuts % (Manual) Lymphocytes % (Manual) Seg Neutrophils # Seg Neutrophils # Man Lymphocytes # (Manual) Monocytes % (Manual) Eosinophils % (Manual) Monocytes # (Manual) Eosinophils # (Manual) D-Dimer Heparin Anti-Xa Level ABG pH POC ABG pCO2 POC ABG pO2 ABG pO2 ABG HCO3 ABG O2 Saturation ABG Base Excess ABG Hemoglobin ABG Oxyhemoglobin VBG pH Oxyhemoglobin Sodium 135 L Potassium Chloride Carbon Dioxide 18 L BUN Creatinine Glucose POC Glucose 241 H Lactic Acid Calcium Ferritin AST Alkaline Phosphatase Magnesium Lactate Dehydrogenase Total Creatine Kinase CK-MB (CK-2) C-Reactive Protein Total Protein Albumin Troponin T HDL Cholesterol Urine WBC (Auto) 11.0 H Urine Creatinine Urine Total Protein Coronavirus (PCR) Crossmatch 06/04/20 06/04/20 06/04/20 03:35 04:19 04:19 WBC RBC 3.15 L Hgb 8.9 L Hct 26.8 L D MCHC RDW 15.9 H Lymph % (Auto) 6.0 L [place] % (Auto) Eos % (Auto) Lymph # 0.6 L [place] # Lymph # (Auto) [place] # (Auto) Seg Neutrophils % 86.6 H Seg Neuts % (Manual) Lymphocytes % (Manual) Seg Neutrophils # 9.1 H Seg Neutrophils # Man Lymphocytes # (Manual) Monocytes % (Manual) Eosinophils % (Manual) Monocytes # (Manual) Eosinophils # (Manual) D-Dimer Heparin Anti-Xa Level ABG pH 7.331 L POC ABG pCO2 POC ABG pO2 ABG pO2 ABG HCO3 ABG O2 Saturation ABG Base Excess -4.7 L ABG Hemoglobin 11.0 L ABG Oxyhemoglobin VBG pH Oxyhemoglobin 93.9 L Sodium 136 L Potassium Chloride Carbon Dioxide 20 L BUN 73 H Creatinine 2.0 H Glucose 192 H POC Glucose Lactic Acid Calcium 8.0 L Ferritin AST Alkaline Phosphatase Magnesium Lactate Dehydrogenase 271 H Total Creatine Kinase CK-MB (CK-2) C-Reactive Protein 2.20 H Total Protein 5.0 L Albumin 2.0 L Troponin T HDL Cholesterol Urine WBC (Auto) Urine Creatinine Urine Total Protein Coronavirus (PCR) Crossmatch 06/04/20 06/04/20 06/04/20 04:19 05:51 11:48 WBC RBC Hgb Hct MCHC RDW Lymph % (Auto) [place] % (Auto) Eos % (Auto) Lymph # [place] # Lymph # (Auto) [place] # (Auto) Seg Neutrophils % Seg Neuts % (Manual) Lymphocytes % (Manual) Seg Neutrophils # Seg Neutrophils # Man Lymphocytes # (Manual) Monocytes % (Manual) Eosinophils % (Manual) Monocytes # (Manual) Eosinophils # (Manual) D-Dimer 414.52 H Heparin Anti-Xa Level ABG pH POC ABG pCO2 POC ABG pO2 ABG pO2 ABG HCO3 ABG O2 Saturation ABG Base Excess ABG Hemoglobin ABG Oxyhemoglobin VBG pH Oxyhemoglobin Sodium Potassium Chloride Carbon Dioxide BUN Creatinine Glucose POC Glucose 179 H 213 H Lactic Acid Calcium Ferritin AST Alkaline Phosphatase Magnesium Lactate Dehydrogenase Total Creatine Kinase CK-MB (CK-2) C-Reactive Protein Total Protein Albumin Troponin T HDL Cholesterol Urine WBC (Auto) Urine Creatinine Urine Total Protein Coronavirus (PCR) Crossmatch 06/04/20 06/05/20 06/05/20 18:25 00:16 05:00 WBC RBC Hgb Hct MCHC RDW Lymph % (Auto) [place] % (Auto) Eos % (Auto) Lymph # [place] # Lymph # (Auto) [place] # (Auto) Seg Neutrophils % Seg Neuts % (Manual) Lymphocytes % (Manual) Seg Neutrophils # Seg Neutrophils # Man Lymphocytes # (Manual) Monocytes % (Manual) Eosinophils % (Manual) Monocytes # (Manual) Eosinophils # (Manual) D-Dimer Heparin Anti-Xa Level ABG pH 7.286 L POC ABG pCO2 POC ABG pO2 ABG pO2 96.2 H ABG HCO3 ABG O2 Saturation ABG Base Excess -6.3 L ABG Hemoglobin 8.8 L ABG Oxyhemoglobin VBG pH Oxyhemoglobin 94.8 L Sodium Potassium Chloride Carbon Dioxide BUN Creatinine Glucose POC Glucose 238 H 183 H Lactic Acid Calcium Ferritin AST Alkaline Phosphatase Magnesium Lactate Dehydrogenase Total Creatine Kinase CK-MB (CK-2) C-Reactive Protein Total Protein Albumin Troponin T HDL Cholesterol Urine WBC (Auto) Urine Creatinine Urine Total Protein Coronavirus (PCR) Crossmatch 06/05/20 06/05/20 06/05/20 05:39 07:25 07:25 WBC RBC 2.97 L Hgb 8.7 L Hct 25.7 L MCHC RDW 16.0 H Lymph % (Auto) 8.8 L [place] % (Auto) 13.3 H Eos % (Auto) Lymph # 0.8 L [place] # 1.3 H Lymph # (Auto) [place] # (Auto) Seg Neutrophils % 77.3 H Seg Neuts % (Manual) Lymphocytes % (Manual) Seg Neutrophils # Seg Neutrophils # Man Lymphocytes # (Manual) Monocytes % (Manual) Eosinophils % (Manual) Monocytes # (Manual) Eosinophils # (Manual) D-Dimer Heparin Anti-Xa Level ABG pH POC ABG pCO2 POC ABG pO2 ABG pO2 ABG HCO3 ABG O2 Saturation ABG Base Excess ABG Hemoglobin ABG Oxyhemoglobin VBG pH Oxyhemoglobin Sodium 133 L Potassium Chloride Carbon Dioxide 17 L BUN 89 H Creatinine 2.8 H Glucose 176 H POC Glucose 149 H Lactic Acid Calcium 7.7 L Ferritin AST Alkaline Phosphatase Magnesium Lactate Dehydrogenase Total Creatine Kinase CK-MB (CK-2) C-Reactive Protein Total Protein 4.2 L Albumin 1.9 L Troponin T HDL Cholesterol Urine WBC (Auto) Urine Creatinine Urine Total Protein Coronavirus (PCR) Crossmatch 06/05/20 06/05/20 06/05/20 07:25 12:05 15:41 WBC RBC Hgb Hct MCHC RDW Lymph % (Auto) [place] % (Auto) Eos % (Auto) Lymph # [place] # Lymph # (Auto) [place] # (Auto) Seg Neutrophils % Seg Neuts % (Manual) Lymphocytes % (Manual) Seg Neutrophils # Seg Neutrophils # Man Lymphocytes # (Manual) Monocytes % (Manual) Eosinophils % (Manual) Monocytes # (Manual) Eosinophils # (Manual) D-Dimer Heparin Anti-Xa Level 0.76 H 0.81 H ABG pH POC ABG pCO2 POC ABG pO2 ABG pO2 ABG HCO3 ABG O2 Saturation ABG Base Excess ABG Hemoglobin ABG Oxyhemoglobin VBG pH Oxyhemoglobin Sodium Potassium Chloride Carbon Dioxide BUN Creatinine Glucose POC Glucose 198 H Lactic Acid Calcium Ferritin AST Alkaline Phosphatase Magnesium Lactate Dehydrogenase Total Creatine Kinase CK-MB (CK-2) C-Reactive Protein Total Protein Albumin Troponin T HDL Cholesterol Urine WBC (Auto) Urine Creatinine Urine Total Protein Coronavirus (PCR) Crossmatch 06/05/20 06/05/20 06/06/20 18:08 23:25 04:00 WBC RBC Hgb Hct MCHC RDW Lymph % (Auto) [place] % (Auto) Eos % (Auto) Lymph # [place] # Lymph # (Auto) [place] # (Auto) Seg Neutrophils % Seg Neuts % (Manual) Lymphocytes % (Manual) Seg Neutrophils # Seg Neutrophils # Man Lymphocytes # (Manual) Monocytes % (Manual) Eosinophils % (Manual) Monocytes # (Manual) Eosinophils # (Manual) D-Dimer Heparin Anti-Xa Level ABG pH POC ABG pCO2 POC ABG pO2 ABG pO2 ABG HCO3 ABG O2 Saturation ABG Base Excess ABG Hemoglobin ABG Oxyhemoglobin VBG pH Oxyhemoglobin Sodium Potassium Chloride Carbon Dioxide BUN Creatinine Glucose POC Glucose 223 H 169 H Lactic Acid Calcium Ferritin AST Alkaline Phosphatase Magnesium Lactate Dehydrogenase Total Creatine Kinase CK-MB (CK-2) C-Reactive Protein Total Protein Albumin Troponin T HDL Cholesterol Urine WBC (Auto) 15.0 H Urine Creatinine Urine Total Protein Coronavirus (PCR) Crossmatch 06/06/20 06/06/20 06/06/20 04:00 05:33 05:38 WBC RBC 2.97 L Hgb 8.7 L Hct 26.8 L MCHC RDW 16.8 H Lymph % (Auto) [place] % (Auto) Eos % (Auto) Lymph # [place] # Lymph # (Auto) [place] # (Auto) Seg Neutrophils % Seg Neuts % (Manual) Lymphocytes % (Manual) Seg Neutrophils # Seg Neutrophils # Man Lymphocytes # (Manual) Monocytes % (Manual) Eosinophils % (Manual) Monocytes # (Manual) Eosinophils # (Manual) D-Dimer Heparin Anti-Xa Level ABG pH POC ABG pCO2 POC ABG pO2 ABG pO2 ABG HCO3 ABG O2 Saturation ABG Base Excess ABG Hemoglobin ABG Oxyhemoglobin VBG pH Oxyhemoglobin Sodium Potassium Chloride Carbon Dioxide BUN Creatinine Glucose POC Glucose 186 H Lactic Acid Calcium Ferritin AST Alkaline Phosphatase Magnesium Lactate Dehydrogenase Total Creatine Kinase CK-MB (CK-2) C-Reactive Protein Total Protein Albumin Troponin T HDL Cholesterol Urine WBC (Auto) Urine Creatinine 82.2 H Urine Total Protein 196 H Coronavirus (PCR) Crossmatch 06/06/20 06/06/20 06/06/20 05:38 12:25 17:03 WBC RBC Hgb Hct MCHC RDW Lymph % (Auto) [place] % (Auto) Eos % (Auto) Lymph # [place] # Lymph # (Auto) [place] # (Auto) Seg Neutrophils % Seg Neuts % (Manual) Lymphocytes % (Manual) Seg Neutrophils # Seg Neutrophils # Man Lymphocytes # (Manual) Monocytes % (Manual) Eosinophils % (Manual) Monocytes # (Manual) Eosinophils # (Manual) D-Dimer Heparin Anti-Xa Level ABG pH POC ABG pCO2 POC ABG pO2 ABG pO2 ABG HCO3 ABG O2 Saturation ABG Base Excess ABG Hemoglobin ABG Oxyhemoglobin VBG pH Oxyhemoglobin Sodium 134 L Potassium 5.2 H Chloride Carbon Dioxide 18 L BUN 97 H Creatinine 2.5 H Glucose 193 H POC Glucose 239 H 252 H Lactic Acid Calcium 7.5 L Ferritin AST Alkaline Phosphatase Magnesium Lactate Dehydrogenase Total Creatine Kinase CK-MB (CK-2) C-Reactive Protein Total Protein 4.1 L Albumin 1.9 L Troponin T HDL Cholesterol Urine WBC (Auto) Urine Creatinine Urine Total Protein Coronavirus (PCR) Crossmatch 06/07/20 06/07/20 06/07/20 00:16 01:49 04:00 WBC RBC 2.91 L Hgb 8.4 L Hct 25.0 L MCHC RDW 16.1 H Lymph % (Auto) 5.7 L [place] % (Auto) 10.5 H Eos % (Auto) Lymph # 0.6 L [place] # 1.1 H Lymph # (Auto) [place] # (Auto) Seg Neutrophils % 83.6 H Seg Neuts % (Manual) Lymphocytes % (Manual) Seg Neutrophils # 9.1 H Seg Neutrophils # Man Lymphocytes # (Manual) Monocytes % (Manual) Eosinophils % (Manual) Monocytes # (Manual) Eosinophils # (Manual) D-Dimer Heparin Anti-Xa Level 0.26 L ABG pH POC ABG pCO2 POC ABG pO2 ABG pO2 ABG HCO3 ABG O2 Saturation ABG Base Excess ABG Hemoglobin ABG Oxyhemoglobin VBG pH Oxyhemoglobin Sodium Potassium Chloride Carbon Dioxide BUN Creatinine Glucose POC Glucose 173 H Lactic Acid Calcium Ferritin AST Alkaline Phosphatase Magnesium Lactate Dehydrogenase Total Creatine Kinase CK-MB (CK-2) C-Reactive Protein Total Protein Albumin Troponin T HDL Cholesterol Urine WBC (Auto) Urine Creatinine Urine Total Protein Coronavirus (PCR) Crossmatch 06/07/20 06/07/20 06/07/20 04:00 04:54 05:51 WBC RBC Hgb Hct MCHC RDW Lymph % (Auto) [place] % (Auto) Eos % (Auto) Lymph # [place] # Lymph # (Auto) [place] # (Auto) Seg Neutrophils % Seg Neuts % (Manual) Lymphocytes % (Manual) Seg Neutrophils # Seg Neutrophils # Man Lymphocytes # (Manual) Monocytes % (Manual) Eosinophils % (Manual) Monocytes # (Manual) Eosinophils # (Manual) D-Dimer Heparin Anti-Xa Level ABG pH 7.317 L POC ABG pCO2 POC ABG pO2 ABG pO2 71.4 L ABG HCO3 ABG O2 Saturation 94.3 L ABG Base Excess -4.8 L ABG Hemoglobin 7.1 L ABG Oxyhemoglobin VBG pH Oxyhemoglobin 92.2 L Sodium 133 L Potassium Chloride Carbon Dioxide 18 L BUN 100 H Creatinine 2.5 H Glucose 158 H POC Glucose 168 H Lactic Acid Calcium 7.6 L Ferritin AST Alkaline Phosphatase Magnesium Lactate Dehydrogenase Total Creatine Kinase CK-MB (CK-2) C-Reactive Protein Total Protein 4.7 L Albumin 2.0 L Troponin T HDL Cholesterol Urine WBC (Auto) Urine Creatinine Urine Total Protein Coronavirus (PCR) Crossmatch 06/07/20 06/07/20 06/07/20 12:03 17:17 20:10 WBC RBC Hgb Hct MCHC RDW Lymph % (Auto) [place] % (Auto) Eos % (Auto) Lymph # [place] # Lymph # (Auto) [place] # (Auto) Seg Neutrophils % Seg Neuts % (Manual) Lymphocytes % (Manual) Seg Neutrophils # Seg Neutrophils # Man Lymphocytes # (Manual) Monocytes % (Manual) Eosinophils % (Manual) Monocytes # (Manual) Eosinophils # (Manual) D-Dimer Heparin Anti-Xa Level 0.17 L ABG pH POC ABG pCO2 POC ABG pO2 ABG pO2 ABG HCO3 ABG O2 Saturation ABG Base Excess ABG Hemoglobin ABG Oxyhemoglobin VBG pH Oxyhemoglobin Sodium Potassium Chloride Carbon Dioxide BUN Creatinine Glucose POC Glucose 276 H 281 H Lactic Acid Calcium Ferritin AST Alkaline Phosphatase Magnesium Lactate Dehydrogenase Total Creatine Kinase CK-MB (CK-2) C-Reactive Protein Total Protein Albumin Troponin T HDL Cholesterol Urine WBC (Auto) Urine Creatinine Urine Total Protein Coronavirus (PCR) Crossmatch 06/08/20 06/08/20 06/08/20 00:02 04:47 04:47 WBC 16.4 H RBC 3.07 L Hgb 8.6 L Hct 26.5 L MCHC RDW 16.3 H Lymph % (Auto) [place] % (Auto) Eos % (Auto) Lymph # [place] # Lymph # (Auto) [place] # (Auto) Seg Neutrophils % Seg Neuts % (Manual) 90.0 H Lymphocytes % (Manual) 3.0 L Seg Neutrophils # Seg Neutrophils # Man 14.8 H Lymphocytes # (Manual) 0.5 L Monocytes % (Manual) Eosinophils % (Manual) Monocytes # (Manual) 1.1 H Eosinophils # (Manual) D-Dimer Heparin Anti-Xa Level ABG pH POC ABG pCO2 POC ABG pO2 ABG pO2 ABG HCO3 ABG O2 Saturation ABG Base Excess ABG Hemoglobin ABG Oxyhemoglobin VBG pH Oxyhemoglobin Sodium 129 L Potassium Chloride 95.6 L Carbon Dioxide 17 L BUN 106 H Creatinine 2.5 H Glucose 213 H POC Glucose 242 H Lactic Acid Calcium 7.6 L Ferritin AST Alkaline Phosphatase Magnesium Lactate Dehydrogenase Total Creatine Kinase CK-MB (CK-2) C-Reactive Protein Total Protein 5.0 L Albumin 2.1 L Troponin T HDL Cholesterol Urine WBC (Auto) Urine Creatinine Urine Total Protein Coronavirus (PCR) Crossmatch 06/08/20 06/08/20 06/08/20 05:40 11:55 17:54 WBC RBC Hgb Hct MCHC RDW Lymph % (Auto) [place] % (Auto) Eos % (Auto) Lymph # [place] # Lymph # (Auto) [place] # (Auto) Seg Neutrophils % Seg Neuts % (Manual) Lymphocytes % (Manual) Seg Neutrophils # Seg Neutrophils # Man Lymphocytes # (Manual) Monocytes % (Manual) Eosinophils % (Manual) Monocytes # (Manual) Eosinophils # (Manual) D-Dimer Heparin Anti-Xa Level ABG pH POC ABG pCO2 POC ABG pO2 ABG pO2 ABG HCO3 ABG O2 Saturation ABG Base Excess ABG Hemoglobin ABG Oxyhemoglobin VBG pH Oxyhemoglobin Sodium Potassium Chloride Carbon Dioxide BUN Creatinine Glucose POC Glucose 221 H 218 H 163 H Lactic Acid Calcium Ferritin AST Alkaline Phosphatase Magnesium Lactate Dehydrogenase Total Creatine Kinase CK-MB (CK-2) C-Reactive Protein Total Protein Albumin Troponin T HDL Cholesterol Urine WBC (Auto) Urine Creatinine Urine Total Protein Coronavirus (PCR) Crossmatch 06/08/20 06/09/20 06/09/20 22:01 00:09 05:16 WBC 19.0 H RBC 3.35 L Hgb 9.2 L Hct 28.5 L MCHC RDW 16.3 H Lymph % (Auto) [place] % (Auto) Eos % (Auto) Lymph # [place] # Lymph # (Auto) [place] # (Auto) Seg Neutrophils % Seg Neuts % (Manual) 85.0 H Lymphocytes % (Manual) 7.0 L Seg Neutrophils # Seg Neutrophils # Man 16.2 H Lymphocytes # (Manual) Monocytes % (Manual) Eosinophils % (Manual) Monocytes # (Manual) 1.3 H Eosinophils # (Manual) D-Dimer Heparin Anti-Xa Level ABG pH POC ABG pCO2 POC ABG pO2 ABG pO2 ABG HCO3 ABG O2 Saturation ABG Base Excess ABG Hemoglobin ABG Oxyhemoglobin VBG pH Oxyhemoglobin Sodium Potassium Chloride Carbon Dioxide BUN Creatinine Glucose POC Glucose 182 H 150 H Lactic Acid Calcium Ferritin AST Alkaline Phosphatase Magnesium Lactate Dehydrogenase Total Creatine Kinase CK-MB (CK-2) C-Reactive Protein Total Protein Albumin Troponin T HDL Cholesterol Urine WBC (Auto) Urine Creatinine Urine Total Protein Coronavirus (PCR) Crossmatch 06/09/20 06/09/20 06/09/20 05:16 05:24 11:29 WBC RBC Hgb Hct MCHC RDW Lymph % (Auto) [place] % (Auto) Eos % (Auto) Lymph # [place] # Lymph # (Auto) [place] # (Auto) Seg Neutrophils % Seg Neuts % (Manual) Lymphocytes % (Manual) Seg Neutrophils # Seg Neutrophils # Man Lymphocytes # (Manual) Monocytes % (Manual) Eosinophils % (Manual) Monocytes # (Manual) Eosinophils # (Manual) D-Dimer Heparin Anti-Xa Level ABG pH POC ABG pCO2 POC ABG pO2 ABG pO2 ABG HCO3 ABG O2 Saturation ABG Base Excess ABG Hemoglobin ABG Oxyhemoglobin VBG pH Oxyhemoglobin Sodium 133 L Potassium Chloride Carbon Dioxide 19 L BUN 109 H Creatinine 2.1 H Glucose 133 H POC Glucose 128 H 119 H Lactic Acid Calcium 7.7 L Ferritin AST Alkaline Phosphatase < 5 L Magnesium Lactate Dehydrogenase Total Creatine Kinase CK-MB (CK-2) C-Reactive Protein Total Protein 4.6 L Albumin < 0.2 L Troponin T HDL Cholesterol Urine WBC (Auto) Urine Creatinine Urine Total Protein Coronavirus (PCR) Crossmatch 06/09/20 06/10/20 06/10/20 17:32 00:00 05:49 WBC RBC Hgb Hct MCHC RDW Lymph % (Auto) [place] % (Auto) Eos % (Auto) Lymph # [place] # Lymph # (Auto) [place] # (Auto) Seg Neutrophils % Seg Neuts % (Manual) Lymphocytes % (Manual) Seg Neutrophils # Seg Neutrophils # Man Lymphocytes # (Manual) Monocytes % (Manual) Eosinophils % (Manual) Monocytes # (Manual) Eosinophils # (Manual) D-Dimer Heparin Anti-Xa Level 0.19 L ABG pH POC ABG pCO2 POC ABG pO2 ABG pO2 ABG HCO3 ABG O2 Saturation ABG Base Excess ABG Hemoglobin ABG Oxyhemoglobin VBG pH Oxyhemoglobin Sodium Potassium Chloride Carbon Dioxide BUN Creatinine Glucose POC Glucose 106 H 117 H Lactic Acid Calcium Ferritin AST Alkaline Phosphatase Magnesium Lactate Dehydrogenase Total Creatine Kinase CK-MB (CK-2) C-Reactive Protein Total Protein Albumin Troponin T HDL Cholesterol Urine WBC (Auto) Urine Creatinine Urine Total Protein Coronavirus (PCR) Crossmatch 06/10/20 06/10/20 06/10/20 05:54 07:40 11:40 WBC RBC Hgb Hct MCHC RDW Lymph % (Auto) [place] % (Auto) Eos % (Auto) Lymph # [place] # Lymph # (Auto) [place] # (Auto) Seg Neutrophils % Seg Neuts % (Manual) Lymphocytes % (Manual) Seg Neutrophils # Seg Neutrophils # Man Lymphocytes # (Manual) Monocytes % (Manual) Eosinophils % (Manual) Monocytes # (Manual) Eosinophils # (Manual) D-Dimer Heparin Anti-Xa Level ABG pH POC ABG pCO2 POC ABG pO2 ABG pO2 ABG HCO3 ABG O2 Saturation ABG Base Excess ABG Hemoglobin ABG Oxyhemoglobin VBG pH Oxyhemoglobin Sodium 146 H D Potassium Chloride Carbon Dioxide 20 L BUN 99 H Creatinine 1.9 H Glucose 121 H POC Glucose 127 H 138 H Lactic Acid Calcium 8.2 L Ferritin AST Alkaline Phosphatase Magnesium Lactate Dehydrogenase Total Creatine Kinase CK-MB (CK-2) C-Reactive Protein Total Protein Albumin Troponin T HDL Cholesterol Urine WBC (Auto) Urine Creatinine Urine Total Protein Coronavirus (PCR) Crossmatch 06/10/20 06/10/20 06/10/20 14:44 17:31 23:22 WBC RBC Hgb Hct MCHC RDW Lymph % (Auto) [place] % (Auto) Eos % (Auto) Lymph # [place] # Lymph # (Auto) [place] # (Auto) Seg Neutrophils % Seg Neuts % (Manual) Lymphocytes % (Manual) Seg Neutrophils # Seg Neutrophils # Man Lymphocytes # (Manual) Monocytes % (Manual) Eosinophils % (Manual) Monocytes # (Manual) Eosinophils # (Manual) D-Dimer Heparin Anti-Xa Level 0.17 L ABG pH POC ABG pCO2 POC ABG pO2 ABG pO2 ABG HCO3 ABG O2 Saturation ABG Base Excess ABG Hemoglobin ABG Oxyhemoglobin VBG pH Oxyhemoglobin Sodium Potassium Chloride Carbon Dioxide BUN Creatinine Glucose POC Glucose 128 H 114 H Lactic Acid Calcium Ferritin AST Alkaline Phosphatase Magnesium Lactate Dehydrogenase Total Creatine Kinase CK-MB (CK-2) C-Reactive Protein Total Protein Albumin Troponin T HDL Cholesterol Urine WBC (Auto) Urine Creatinine Urine Total Protein Coronavirus (PCR) Crossmatch 06/11/20 06/11/20 06/11/20 00:22 03:45 03:45 WBC 14.6 H RBC 2.77 L Hgb 7.9 L Hct 24.3 L MCHC RDW 16.8 H Lymph % (Auto) 6.6 L [place] % (Auto) 8.5 H Eos % (Auto) Lymph # 1.0 L [place] # 1.2 H Lymph # (Auto) [place] # (Auto) Seg Neutrophils % 82.9 H Seg Neuts % (Manual) Lymphocytes % (Manual) Seg Neutrophils # 12.1 H Seg Neutrophils # Man Lymphocytes # (Manual) Monocytes % (Manual) Eosinophils % (Manual) Monocytes # (Manual) Eosinophils # (Manual) D-Dimer Heparin Anti-Xa Level 0.24 L ABG pH POC ABG pCO2 POC ABG pO2 ABG pO2 ABG HCO3 ABG O2 Saturation ABG Base Excess ABG Hemoglobin ABG Oxyhemoglobin VBG pH Oxyhemoglobin Sodium Potassium Chloride Carbon Dioxide 20 L BUN 88 H Creatinine 1.5 H Glucose 111 H POC Glucose Lactic Acid Calcium 8.2 L Ferritin AST Alkaline Phosphatase Magnesium Lactate Dehydrogenase Total Creatine Kinase CK-MB (CK-2) C-Reactive Protein Total Protein Albumin Troponin T HDL Cholesterol Urine WBC (Auto) Urine Creatinine Urine Total Protein Coronavirus (PCR) Crossmatch 06/11/20 06/11/20 06/11/20 06:03 10:22 11:11 WBC RBC Hgb Hct MCHC RDW Lymph % (Auto) [place] % (Auto) Eos % (Auto) Lymph # [place] # Lymph # (Auto) [place] # (Auto) Seg Neutrophils % Seg Neuts % (Manual) Lymphocytes % (Manual) Seg Neutrophils # Seg Neutrophils # Man Lymphocytes # (Manual) Monocytes % (Manual) Eosinophils % (Manual) Monocytes # (Manual) Eosinophils # (Manual) D-Dimer Heparin Anti-Xa Level 0.26 L ABG pH POC ABG pCO2 POC ABG pO2 ABG pO2 ABG HCO3 ABG O2 Saturation ABG Base Excess ABG Hemoglobin 9.6 L ABG Oxyhemoglobin VBG pH Oxyhemoglobin Sodium Potassium Chloride Carbon Dioxide BUN Creatinine Glucose POC Glucose 114 H Lactic Acid Calcium Ferritin AST Alkaline Phosphatase Magnesium Lactate Dehydrogenase Total Creatine Kinase CK-MB (CK-2) C-Reactive Protein Total Protein Albumin Troponin T HDL Cholesterol Urine WBC (Auto) Urine Creatinine Urine Total Protein Coronavirus (PCR) Crossmatch 06/11/20 06/11/20 06/12/20 12:24 17:24 00:21 WBC RBC Hgb Hct MCHC RDW Lymph % (Auto) [place] % (Auto) Eos % (Auto) Lymph # [place] # Lymph # (Auto) [place] # (Auto) Seg Neutrophils % Seg Neuts % (Manual) Lymphocytes % (Manual) Seg Neutrophils # Seg Neutrophils # Man Lymphocytes # (Manual) Monocytes % (Manual) Eosinophils % (Manual) Monocytes # (Manual) Eosinophils # (Manual) D-Dimer Heparin Anti-Xa Level ABG pH POC ABG pCO2 POC ABG pO2 ABG pO2 ABG HCO3 ABG O2 Saturation ABG Base Excess ABG Hemoglobin ABG Oxyhemoglobin VBG pH Oxyhemoglobin Sodium Potassium Chloride Carbon Dioxide BUN Creatinine Glucose POC Glucose 119 H 126 H 117 H Lactic Acid Calcium Ferritin AST Alkaline Phosphatase Magnesium Lactate Dehydrogenase Total Creatine Kinase CK-MB (CK-2) C-Reactive Protein Total Protein Albumin Troponin T HDL Cholesterol Urine WBC (Auto) Urine Creatinine Urine Total Protein Coronavirus (PCR) Crossmatch 06/12/20 06/12/20 06/12/20 02:46 02:46 05:46 WBC 13.2 H RBC 2.83 L Hgb 8.3 L Hct 24.3 L MCHC RDW 16.6 H Lymph % (Auto) 6.2 L [place] % (Auto) 9.5 H Eos % (Auto) Lymph # 0.8 L [place] # 1.3 H Lymph # (Auto) [place] # (Auto) Seg Neutrophils % 81.9 H Seg Neuts % (Manual) Lymphocytes % (Manual) Seg Neutrophils # 10.9 H Seg Neutrophils # Man Lymphocytes # (Manual) Monocytes % (Manual) Eosinophils % (Manual) Monocytes # (Manual) Eosinophils # (Manual) D-Dimer Heparin Anti-Xa Level ABG pH POC ABG pCO2 POC ABG pO2 ABG pO2 ABG HCO3 ABG O2 Saturation ABG Base Excess ABG Hemoglobin ABG Oxyhemoglobin VBG pH Oxyhemoglobin Sodium Potassium 3.5 L Chloride Carbon Dioxide BUN 77 H Creatinine 1.3 H Glucose POC Glucose 132 H Lactic Acid Calcium 8.3 L Ferritin AST Alkaline Phosphatase Magnesium Lactate Dehydrogenase Total Creatine Kinase CK-MB (CK-2) C-Reactive Protein Total Protein Albumin Troponin T HDL Cholesterol Urine WBC (Auto) Urine Creatinine Urine Total Protein Coronavirus (PCR) Crossmatch 06/12/20 06/12/20 06/12/20 09:20 12:16 17:48 WBC RBC Hgb Hct MCHC RDW Lymph % (Auto) [place] % (Auto) Eos % (Auto) Lymph # [place] # Lymph # (Auto) [place] # (Auto) Seg Neutrophils % Seg Neuts % (Manual) Lymphocytes % (Manual) Seg Neutrophils # Seg Neutrophils # Man Lymphocytes # (Manual) Monocytes % (Manual) Eosinophils % (Manual) Monocytes # (Manual) Eosinophils # (Manual) D-Dimer Heparin Anti-Xa Level ABG pH POC ABG pCO2 POC ABG pO2 ABG pO2 91.1 H ABG HCO3 ABG O2 Saturation ABG Base Excess ABG Hemoglobin ABG Oxyhemoglobin VBG pH Oxyhemoglobin 94.8 L Sodium Potassium Chloride Carbon Dioxide BUN Creatinine Glucose POC Glucose 167 H 182 H Lactic Acid Calcium Ferritin AST Alkaline Phosphatase Magnesium Lactate Dehydrogenase Total Creatine Kinase CK-MB (CK-2) C-Reactive Protein Total Protein Albumin Troponin T HDL Cholesterol Urine WBC (Auto) Urine Creatinine Urine Total Protein Coronavirus (PCR) Crossmatch 06/13/20 06/13/20 06/13/20 00:08 05:37 09:09 WBC RBC Hgb Hct MCHC RDW Lymph % (Auto) [place] % (Auto) Eos % (Auto) Lymph # [place] # Lymph # (Auto) [place] # (Auto) Seg Neutrophils % Seg Neuts % (Manual) Lymphocytes % (Manual) Seg Neutrophils # Seg Neutrophils # Man Lymphocytes # (Manual) Monocytes % (Manual) Eosinophils % (Manual) Monocytes # (Manual) Eosinophils # (Manual) D-Dimer Heparin Anti-Xa Level 0.86 H ABG pH POC ABG pCO2 POC ABG pO2 ABG pO2 ABG HCO3 ABG O2 Saturation ABG Base Excess ABG Hemoglobin ABG Oxyhemoglobin VBG pH Oxyhemoglobin Sodium Potassium Chloride Carbon Dioxide BUN Creatinine Glucose POC Glucose 142 H 119 H Lactic Acid Calcium Ferritin AST Alkaline Phosphatase Magnesium Lactate Dehydrogenase Total Creatine Kinase CK-MB (CK-2) C-Reactive Protein Total Protein Albumin Troponin T HDL Cholesterol Urine WBC (Auto) Urine Creatinine Urine Total Protein Coronavirus (PCR) Crossmatch 06/13/20 06/13/20 06/13/20 12:28 17:55 21:17 WBC RBC Hgb Hct MCHC RDW Lymph % (Auto) [place] % (Auto) Eos % (Auto) Lymph # [place] # Lymph # (Auto) [place] # (Auto) Seg Neutrophils % Seg Neuts % (Manual) Lymphocytes % (Manual) Seg Neutrophils # Seg Neutrophils # Man Lymphocytes # (Manual) Monocytes % (Manual) Eosinophils % (Manual) Monocytes # (Manual) Eosinophils # (Manual) D-Dimer Heparin Anti-Xa Level ABG pH POC ABG pCO2 POC ABG pO2 ABG pO2 ABG HCO3 ABG O2 Saturation ABG Base Excess ABG Hemoglobin ABG Oxyhemoglobin VBG pH Oxyhemoglobin Sodium Potassium Chloride Carbon Dioxide BUN 61 H Creatinine Glucose 131 H POC Glucose 165 H 174 H Lactic Acid Calcium Ferritin AST Alkaline Phosphatase Magnesium Lactate Dehydrogenase Total Creatine Kinase CK-MB (CK-2) C-Reactive Protein Total Protein Albumin Troponin T HDL Cholesterol Urine WBC (Auto) Urine Creatinine Urine Total Protein Coronavirus (PCR) Crossmatch 06/13/20 06/13/20 06/14/20 21:17 23:50 05:34 WBC RBC Hgb Hct MCHC RDW Lymph % (Auto) [place] % (Auto) Eos % (Auto) Lymph # [place] # Lymph # (Auto) [place] # (Auto) Seg Neutrophils % Seg Neuts % (Manual) Lymphocytes % (Manual) Seg Neutrophils # Seg Neutrophils # Man Lymphocytes # (Manual) Monocytes % (Manual) Eosinophils % (Manual) Monocytes # (Manual) Eosinophils # (Manual) D-Dimer Heparin Anti-Xa Level 0.72 H ABG pH POC ABG pCO2 POC ABG pO2 ABG pO2 ABG HCO3 ABG O2 Saturation ABG Base Excess ABG Hemoglobin ABG Oxyhemoglobin VBG pH Oxyhemoglobin Sodium 146 H Potassium Chloride 107.6 H Carbon Dioxide BUN 61 H Creatinine 1.3 H Glucose 135 H POC Glucose 146 H Lactic Acid Calcium Ferritin AST Alkaline Phosphatase Magnesium Lactate Dehydrogenase Total Creatine Kinase CK-MB (CK-2) C-Reactive Protein Total Protein Albumin Troponin T HDL Cholesterol Urine WBC (Auto) Urine Creatinine Urine Total Protein Coronavirus (PCR) Crossmatch 06/14/20 06/14/20 06/14/20 06:11 09:28 11:30 WBC RBC Hgb Hct MCHC RDW Lymph % (Auto) [place] % (Auto) Eos % (Auto) Lymph # [place] # Lymph # (Auto) [place] # (Auto) Seg Neutrophils % Seg Neuts % (Manual) Lymphocytes % (Manual) Seg Neutrophils # Seg Neutrophils # Man Lymphocytes # (Manual) Monocytes % (Manual) Eosinophils % (Manual) Monocytes # (Manual) Eosinophils # (Manual) D-Dimer Heparin Anti-Xa Level 0.90 H ABG pH POC ABG pCO2 POC ABG pO2 ABG pO2 ABG HCO3 ABG O2 Saturation ABG Base Excess ABG Hemoglobin ABG Oxyhemoglobin VBG pH Oxyhemoglobin Sodium Potassium Chloride Carbon Dioxide BUN Creatinine Glucose POC Glucose 141 H 186 H Lactic Acid Calcium Ferritin AST Alkaline Phosphatase Magnesium Lactate Dehydrogenase Total Creatine Kinase CK-MB (CK-2) C-Reactive Protein Total Protein Albumin Troponin T HDL Cholesterol Urine WBC (Auto) Urine Creatinine Urine Total Protein Coronavirus (PCR) Crossmatch 06/14/20 06/14/20 06/14/20 16:07 18:16 23:51 WBC RBC Hgb Hct MCHC RDW Lymph % (Auto) [place] % (Auto) Eos % (Auto) Lymph # [place] # Lymph # (Auto) [place] # (Auto) Seg Neutrophils % Seg Neuts % (Manual) Lymphocytes % (Manual) Seg Neutrophils # Seg Neutrophils # Man Lymphocytes # (Manual) Monocytes % (Manual) Eosinophils % (Manual) Monocytes # (Manual) Eosinophils # (Manual) D-Dimer Heparin Anti-Xa Level 0.82 H ABG pH POC ABG pCO2 POC ABG pO2 ABG pO2 ABG HCO3 ABG O2 Saturation ABG Base Excess ABG Hemoglobin ABG Oxyhemoglobin VBG pH Oxyhemoglobin Sodium Potassium Chloride Carbon Dioxide BUN Creatinine Glucose POC Glucose 106 H 154 H Lactic Acid Calcium Ferritin AST Alkaline Phosphatase Magnesium Lactate Dehydrogenase Total Creatine Kinase CK-MB (CK-2) C-Reactive Protein Total Protein Albumin Troponin T HDL Cholesterol Urine WBC (Auto) Urine Creatinine Urine Total Protein Coronavirus (PCR) Crossmatch 06/15/20 06/15/20 06/15/20 04:24 04:24 05:59 WBC RBC 2.75 L Hgb 7.9 L Hct 24.0 L MCHC RDW 16.4 H Lymph % (Auto) 12.9 L [place] % (Auto) 8.7 H Eos % (Auto) 4.6 H Lymph # 1.1 L [place] # Lymph # (Auto) [place] # (Auto) Seg Neutrophils % 73.2 H Seg Neuts % (Manual) Lymphocytes % (Manual) Seg Neutrophils # Seg Neutrophils # Man Lymphocytes # (Manual) Monocytes % (Manual) Eosinophils % (Manual) Monocytes # (Manual) Eosinophils # (Manual) D-Dimer Heparin Anti-Xa Level ABG pH POC ABG pCO2 POC ABG pO2 ABG pO2 ABG HCO3 ABG O2 Saturation ABG Base Excess ABG Hemoglobin ABG Oxyhemoglobin VBG pH Oxyhemoglobin Sodium Potassium 3.4 L Chloride Carbon Dioxide BUN 55 H Creatinine 1.3 H Glucose 142 H POC Glucose 131 H Lactic Acid Calcium Ferritin AST Alkaline Phosphatase Magnesium Lactate Dehydrogenase Total Creatine Kinase CK-MB (CK-2) C-Reactive Protein Total Protein Albumin Troponin T HDL Cholesterol Urine WBC (Auto) Urine Creatinine Urine Total Protein Coronavirus (PCR) Crossmatch 06/15/20 06/15/20 06/16/20 12:33 17:07 00:22 WBC RBC Hgb Hct MCHC RDW Lymph % (Auto) [place] % (Auto) Eos % (Auto) Lymph # [place] # Lymph # (Auto) [place] # (Auto) Seg Neutrophils % Seg Neuts % (Manual) Lymphocytes % (Manual) Seg Neutrophils # Seg Neutrophils # Man Lymphocytes # (Manual) Monocytes % (Manual) Eosinophils % (Manual) Monocytes # (Manual) Eosinophils # (Manual) D-Dimer Heparin Anti-Xa Level 0.21 L ABG pH POC ABG pCO2 POC ABG pO2 ABG pO2 ABG HCO3 ABG O2 Saturation ABG Base Excess ABG Hemoglobin ABG Oxyhemoglobin VBG pH Oxyhemoglobin Sodium Potassium Chloride Carbon Dioxide BUN Creatinine Glucose POC Glucose 180 H 185 H Lactic Acid Calcium Ferritin AST Alkaline Phosphatase Magnesium Lactate Dehydrogenase Total Creatine Kinase CK-MB (CK-2) C-Reactive Protein Total Protein Albumin Troponin T HDL Cholesterol Urine WBC (Auto) Urine Creatinine Urine Total Protein Coronavirus (PCR) Crossmatch 06/16/20 06/16/20 06/16/20 01:45 08:06 09:15 WBC RBC Hgb Hct MCHC RDW Lymph % (Auto) [place] % (Auto) Eos % (Auto) Lymph # [place] # Lymph # (Auto) [place] # (Auto) Seg Neutrophils % Seg Neuts % (Manual) Lymphocytes % (Manual) Seg Neutrophils # Seg Neutrophils # Man Lymphocytes # (Manual) Monocytes % (Manual) Eosinophils % (Manual) Monocytes # (Manual) Eosinophils # (Manual) D-Dimer Heparin Anti-Xa Level ABG pH POC ABG pCO2 POC ABG pO2 ABG pO2 ABG HCO3 ABG O2 Saturation ABG Base Excess ABG Hemoglobin ABG Oxyhemoglobin VBG pH Oxyhemoglobin Sodium Potassium Chloride Carbon Dioxide BUN 49 H Creatinine Glucose 154 H POC Glucose 140 H 171 H Lactic Acid Calcium Ferritin AST Alkaline Phosphatase Magnesium Lactate Dehydrogenase Total Creatine Kinase CK-MB (CK-2) C-Reactive Protein Total Protein Albumin Troponin T HDL Cholesterol Urine WBC (Auto) Urine Creatinine Urine Total Protein Coronavirus (PCR) Crossmatch 06/16/20 06/16/20 06/16/20 10:46 12:33 17:54 WBC RBC Hgb Hct MCHC RDW Lymph % (Auto) [place] % (Auto) Eos % (Auto) Lymph # [place] # Lymph # (Auto) [place] # (Auto) Seg Neutrophils % Seg Neuts % (Manual) Lymphocytes % (Manual) Seg Neutrophils # Seg Neutrophils # Man Lymphocytes # (Manual) Monocytes % (Manual) Eosinophils % (Manual) Monocytes # (Manual) Eosinophils # (Manual) D-Dimer Heparin Anti-Xa Level 0.12 L ABG pH POC ABG pCO2 POC ABG pO2 ABG pO2 ABG HCO3 ABG O2 Saturation ABG Base Excess ABG Hemoglobin ABG Oxyhemoglobin VBG pH Oxyhemoglobin Sodium Potassium Chloride Carbon Dioxide BUN Creatinine Glucose POC Glucose 166 H 151 H Lactic Acid Calcium Ferritin AST Alkaline Phosphatase Magnesium Lactate Dehydrogenase Total Creatine Kinase CK-MB (CK-2) C-Reactive Protein Total Protein Albumin Troponin T HDL Cholesterol Urine WBC (Auto) Urine Creatinine Urine Total Protein Coronavirus (PCR) Crossmatch 06/16/20 06/17/20 06/17/20 18:47 00:00 02:19 WBC RBC Hgb Hct MCHC RDW Lymph % (Auto) [place] % (Auto) Eos % (Auto) Lymph # [place] # Lymph # (Auto) [place] # (Auto) Seg Neutrophils % Seg Neuts % (Manual) Lymphocytes % (Manual) Seg Neutrophils # Seg Neutrophils # Man Lymphocytes # (Manual) Monocytes % (Manual) Eosinophils % (Manual) Monocytes # (Manual) Eosinophils # (Manual) D-Dimer Heparin Anti-Xa Level 0.73 H 0.77 H ABG pH POC ABG pCO2 POC ABG pO2 ABG pO2 ABG HCO3 ABG O2 Saturation ABG Base Excess ABG Hemoglobin ABG Oxyhemoglobin VBG pH Oxyhemoglobin Sodium Potassium Chloride Carbon Dioxide BUN Creatinine Glucose POC Glucose 139 H Lactic Acid Calcium Ferritin AST Alkaline Phosphatase Magnesium Lactate Dehydrogenase Total Creatine Kinase CK-MB (CK-2) C-Reactive Protein Total Protein Albumin Troponin T HDL Cholesterol Urine WBC (Auto) Urine Creatinine Urine Total Protein Coronavirus (PCR) Crossmatch 06/17/20 06/17/20 06/17/20 06:07 11:42 16:43 WBC RBC Hgb Hct MCHC RDW Lymph % (Auto) [place] % (Auto) Eos % (Auto) Lymph # [place] # Lymph # (Auto) [place] # (Auto) Seg Neutrophils % Seg Neuts % (Manual) Lymphocytes % (Manual) Seg Neutrophils # Seg Neutrophils # Man Lymphocytes # (Manual) Monocytes % (Manual) Eosinophils % (Manual) Monocytes # (Manual) Eosinophils # (Manual) D-Dimer Heparin Anti-Xa Level 0.73 H ABG pH POC ABG pCO2 POC ABG pO2 ABG pO2 ABG HCO3 ABG O2 Saturation ABG Base Excess ABG Hemoglobin ABG Oxyhemoglobin VBG pH Oxyhemoglobin Sodium Potassium Chloride Carbon Dioxide BUN Creatinine Glucose POC Glucose 169 H 169 H Lactic Acid Calcium Ferritin AST Alkaline Phosphatase Magnesium Lactate Dehydrogenase Total Creatine Kinase CK-MB (CK-2) C-Reactive Protein Total Protein Albumin Troponin T HDL Cholesterol Urine WBC (Auto) Urine Creatinine Urine Total Protein Coronavirus (PCR) Crossmatch 06/17/20 06/17/20 06/17/20 18:18 23:08 23:16 WBC RBC Hgb Hct MCHC RDW Lymph % (Auto) [place] % (Auto) Eos % (Auto) Lymph # [place] # Lymph # (Auto) [place] # (Auto) Seg Neutrophils % Seg Neuts % (Manual) Lymphocytes % (Manual) Seg Neutrophils # Seg Neutrophils # Man Lymphocytes # (Manual) Monocytes % (Manual) Eosinophils % (Manual) Monocytes # (Manual) Eosinophils # (Manual) D-Dimer Heparin Anti-Xa Level 0.71 H ABG pH POC ABG pCO2 POC ABG pO2 ABG pO2 ABG HCO3 ABG O2 Saturation ABG Base Excess ABG Hemoglobin ABG Oxyhemoglobin VBG pH Oxyhemoglobin Sodium Potassium Chloride Carbon Dioxide BUN Creatinine Glucose POC Glucose 159 H 134 H Lactic Acid Calcium Ferritin AST Alkaline Phosphatase Magnesium Lactate Dehydrogenase Total Creatine Kinase CK-MB (CK-2) C-Reactive Protein Total Protein Albumin Troponin T HDL Cholesterol Urine WBC (Auto) Urine Creatinine Urine Total Protein Coronavirus (PCR) Crossmatch 06/18/20 06/18/20 06/18/20 04:42 05:52 11:50 WBC RBC Hgb Hct MCHC RDW Lymph % (Auto) [place] % (Auto) Eos % (Auto) Lymph # [place] # Lymph # (Auto) [place] # (Auto) Seg Neutrophils % Seg Neuts % (Manual) Lymphocytes % (Manual) Seg Neutrophils # Seg Neutrophils # Man Lymphocytes # (Manual) Monocytes % (Manual) Eosinophils % (Manual) Monocytes # (Manual) Eosinophils # (Manual) D-Dimer Heparin Anti-Xa Level ABG pH POC ABG pCO2 POC ABG pO2 ABG pO2 ABG HCO3 ABG O2 Saturation ABG Base Excess ABG Hemoglobin ABG Oxyhemoglobin VBG pH Oxyhemoglobin Sodium Potassium Chloride Carbon Dioxide BUN 44 H Creatinine Glucose 115 H POC Glucose 171 H 167 H Lactic Acid Calcium Ferritin AST Alkaline Phosphatase Magnesium Lactate Dehydrogenase Total Creatine Kinase CK-MB (CK-2) C-Reactive Protein Total Protein Albumin Troponin T HDL Cholesterol Urine WBC (Auto) Urine Creatinine Urine Total Protein Coronavirus (PCR) Crossmatch 06/18/20 06/19/20 06/19/20 23:46 05:48 07:52 WBC RBC Hgb Hct MCHC RDW Lymph % (Auto) [place] % (Auto) Eos % (Auto) Lymph # [place] # Lymph # (Auto) [place] # (Auto) Seg Neutrophils % Seg Neuts % (Manual) Lymphocytes % (Manual) Seg Neutrophils # Seg Neutrophils # Man Lymphocytes # (Manual) Monocytes % (Manual) Eosinophils % (Manual) Monocytes # (Manual) Eosinophils # (Manual) D-Dimer Heparin Anti-Xa Level ABG pH POC ABG pCO2 POC ABG pO2 ABG pO2 ABG HCO3 ABG O2 Saturation ABG Base Excess ABG Hemoglobin ABG Oxyhemoglobin VBG pH Oxyhemoglobin Sodium Potassium Chloride Carbon Dioxide BUN Creatinine Glucose POC Glucose 130 H 207 H 175 H Lactic Acid Calcium Ferritin AST Alkaline Phosphatase Magnesium Lactate Dehydrogenase Total Creatine Kinase CK-MB (CK-2) C-Reactive Protein Total Protein Albumin Troponin T HDL Cholesterol Urine WBC (Auto) Urine Creatinine Urine Total Protein Coronavirus (PCR) Crossmatch 06/19/20 06/19/20 06/20/20 11:42 22:54 05:17 WBC RBC Hgb Hct MCHC RDW Lymph % (Auto) [place] % (Auto) Eos % (Auto) Lymph # [place] # Lymph # (Auto) [place] # (Auto) Seg Neutrophils % Seg Neuts % (Manual) Lymphocytes % (Manual) Seg Neutrophils # Seg Neutrophils # Man Lymphocytes # (Manual) Monocytes % (Manual) Eosinophils % (Manual) Monocytes # (Manual) Eosinophils # (Manual) D-Dimer Heparin Anti-Xa Level ABG pH POC ABG pCO2 POC ABG pO2 ABG pO2 ABG HCO3 ABG O2 Saturation ABG Base Excess ABG Hemoglobin ABG Oxyhemoglobin VBG pH Oxyhemoglobin Sodium Potassium Chloride Carbon Dioxide BUN Creatinine Glucose POC Glucose 166 H 135 H 218 H Lactic Acid Calcium Ferritin AST Alkaline Phosphatase Magnesium Lactate Dehydrogenase Total Creatine Kinase CK-MB (CK-2) C-Reactive Protein Total Protein Albumin Troponin T HDL Cholesterol Urine WBC (Auto) Urine Creatinine Urine Total Protein Coronavirus (PCR) Crossmatch 06/20/20 06/20/20 06/20/20 12:04 16:25 16:35 WBC RBC Hgb Hct MCHC RDW Lymph % (Auto) [place] % (Auto) Eos % (Auto) Lymph # [place] # Lymph # (Auto) [place] # (Auto) Seg Neutrophils % Seg Neuts % (Manual) Lymphocytes % (Manual) Seg Neutrophils # Seg Neutrophils # Man Lymphocytes # (Manual) Monocytes % (Manual) Eosinophils % (Manual) Monocytes # (Manual) Eosinophils # (Manual) D-Dimer Heparin Anti-Xa Level ABG pH POC ABG pCO2 POC ABG pO2 ABG pO2 59.6 L ABG HCO3 28.7 H ABG O2 Saturation 93.5 L ABG Base Excess 3.4 H ABG Hemoglobin 7.2 L ABG Oxyhemoglobin VBG pH Oxyhemoglobin 91.3 L Sodium Potassium Chloride Carbon Dioxide BUN Creatinine Glucose POC Glucose 194 H 137 H Lactic Acid Calcium Ferritin AST Alkaline Phosphatase Magnesium Lactate Dehydrogenase Total Creatine Kinase CK-MB (CK-2) C-Reactive Protein Total Protein Albumin Troponin T HDL Cholesterol Urine WBC (Auto) Urine Creatinine Urine Total Protein Coronavirus (PCR) Crossmatch 0906/21/20 06/21/20 23:59 06:25 12:01 WBC RBC Hgb Hct MCHC RDW Lymph % (Auto) [place] % (Auto) Eos % (Auto) Lymph # [place] # Lymph # (Auto) [place] # (Auto) Seg Neutrophils % Seg Neuts % (Manual) Lymphocytes % (Manual) Seg Neutrophils # Seg Neutrophils # Man Lymphocytes # (Manual) Monocytes % (Manual) Eosinophils % (Manual) Monocytes # (Manual) Eosinophils # (Manual) D-Dimer Heparin Anti-Xa Level ABG pH POC ABG pCO2 POC ABG pO2 ABG pO2 ABG HCO3 ABG O2 Saturation ABG Base Excess ABG Hemoglobin ABG Oxyhemoglobin VBG pH Oxyhemoglobin Sodium Potassium Chloride Carbon Dioxide BUN Creatinine Glucose POC Glucose 156 H 177 H 195 H Lactic Acid Calcium Ferritin AST Alkaline Phosphatase Magnesium Lactate Dehydrogenase Total Creatine Kinase CK-MB (CK-2) C-Reactive Protein Total Protein Albumin Troponin T HDL Cholesterol Urine WBC (Auto) Urine Creatinine Urine Total Protein Coronavirus (PCR) Crossmatch 06/21/20 06/21/20 06/22/20 17:04 21:51 05:06 WBC RBC Hgb Hct MCHC RDW Lymph % (Auto) [place] % (Auto) Eos % (Auto) Lymph # [place] # Lymph # (Auto) [place] # (Auto) Seg Neutrophils % Seg Neuts % (Manual) Lymphocytes % (Manual) Seg Neutrophils # Seg Neutrophils # Man Lymphocytes # (Manual) Monocytes % (Manual) Eosinophils % (Manual) Monocytes # (Manual) Eosinophils # (Manual) D-Dimer Heparin Anti-Xa Level ABG pH POC ABG pCO2 POC ABG pO2 ABG pO2 ABG HCO3 ABG O2 Saturation ABG Base Excess ABG Hemoglobin ABG Oxyhemoglobin VBG pH Oxyhemoglobin Sodium Potassium Chloride Carbon Dioxide BUN Creatinine Glucose POC Glucose 156 H 154 H 167 H Lactic Acid Calcium Ferritin AST Alkaline Phosphatase Magnesium Lactate Dehydrogenase Total Creatine Kinase CK-MB (CK-2) C-Reactive Protein Total Protein Albumin Troponin T HDL Cholesterol Urine WBC (Auto) Urine Creatinine Urine Total Protein Coronavirus (PCR) Crossmatch 06/22/20 06/22/20 06/22/20 11:20 15:27 16:58 WBC RBC Hgb Hct MCHC RDW Lymph % (Auto) [place] % (Auto) Eos % (Auto) Lymph # [place] # Lymph # (Auto) [place] # (Auto) Seg Neutrophils % Seg Neuts % (Manual) Lymphocytes % (Manual) Seg Neutrophils # Seg Neutrophils # Man Lymphocytes # (Manual) Monocytes % (Manual) Eosinophils % (Manual) Monocytes # (Manual) Eosinophils # (Manual) D-Dimer Heparin Anti-Xa Level ABG pH 7.206 L POC ABG pCO2 79.9 H POC ABG pO2 ABG pO2 ABG HCO3 ABG O2 Saturation ABG Base Excess ABG Hemoglobin 8.3 L ABG Oxyhemoglobin VBG pH Oxyhemoglobin Sodium Potassium Chloride Carbon Dioxide BUN Creatinine Glucose POC Glucose 181 H 230 H Lactic Acid Calcium Ferritin AST Alkaline Phosphatase Magnesium Lactate Dehydrogenase Total Creatine Kinase CK-MB (CK-2) C-Reactive Protein Total Protein Albumin Troponin T HDL Cholesterol Urine WBC (Auto) Urine Creatinine Urine Total Protein Coronavirus (PCR) Crossmatch 06/22/20 06/23/20 06/23/20 22:26 05:49 05:49 WBC RBC 2.58 L Hgb 7.4 L Hct 23.2 L MCHC RDW 17.0 H Lymph % (Auto) [place] % (Auto) 11.2 H Eos % (Auto) Lymph # 1.0 L [place] # Lymph # (Auto) [place] # (Auto) Seg Neutrophils % Seg Neuts % (Manual) Lymphocytes % (Manual) Seg Neutrophils # Seg Neutrophils # Man Lymphocytes # (Manual) Monocytes % (Manual) Eosinophils % (Manual) Monocytes # (Manual) Eosinophils # (Manual) D-Dimer Heparin Anti-Xa Level ABG pH POC ABG pCO2 POC ABG pO2 ABG pO2 ABG HCO3 ABG O2 Saturation ABG Base Excess ABG Hemoglobin ABG Oxyhemoglobin VBG pH Oxyhemoglobin Sodium Potassium Chloride Carbon Dioxide BUN 68 H Creatinine 2.4 H Glucose 198 H POC Glucose 195 H Lactic Acid Calcium Ferritin AST Alkaline Phosphatase Magnesium Lactate Dehydrogenase Total Creatine Kinase CK-MB (CK-2) C-Reactive Protein Total Protein Albumin Troponin T HDL Cholesterol Urine WBC (Auto) Urine Creatinine Urine Total Protein Coronavirus (PCR) Crossmatch 06/23/20 06/23/20 06/23/20 05:50 12:29 12:34 WBC RBC Hgb Hct MCHC RDW Lymph % (Auto) [place] % (Auto) Eos % (Auto) Lymph # [place] # Lymph # (Auto) [place] # (Auto) Seg Neutrophils % Seg Neuts % (Manual) Lymphocytes % (Manual) Seg Neutrophils # Seg Neutrophils # Man Lymphocytes # (Manual) Monocytes % (Manual) Eosinophils % (Manual) Monocytes # (Manual) Eosinophils # (Manual) D-Dimer Heparin Anti-Xa Level ABG pH POC ABG pCO2 54.7 H POC ABG pO2 68.8 L ABG pO2 ABG HCO3 ABG O2 Saturation ABG Base Excess ABG Hemoglobin 9.8 L ABG Oxyhemoglobin 92.6 L VBG pH Oxyhemoglobin Sodium Potassium Chloride Carbon Dioxide BUN Creatinine Glucose POC Glucose 202 H 218 H Lactic Acid Calcium Ferritin AST Alkaline Phosphatase Magnesium Lactate Dehydrogenase Total Creatine Kinase CK-MB (CK-2) C-Reactive Protein Total Protein Albumin Troponin T HDL Cholesterol Urine WBC (Auto) Urine Creatinine Urine Total Protein Coronavirus (PCR) Crossmatch 06/23/20 06/23/20 06/24/20 16:02 22:22 01:06 WBC RBC Hgb Hct MCHC RDW Lymph % (Auto) [place] % (Auto) Eos % (Auto) Lymph # [place] # Lymph # (Auto) [place] # (Auto) Seg Neutrophils % Seg Neuts % (Manual) Lymphocytes % (Manual) Seg Neutrophils # Seg Neutrophils # Man Lymphocytes # (Manual) Monocytes % (Manual) Eosinophils % (Manual) Monocytes # (Manual) Eosinophils # (Manual) D-Dimer Heparin Anti-Xa Level ABG pH POC ABG pCO2 POC ABG pO2 ABG pO2 ABG HCO3 ABG O2 Saturation ABG Base Excess ABG Hemoglobin ABG Oxyhemoglobin VBG pH Oxyhemoglobin Sodium Potassium Chloride Carbon Dioxide BUN Creatinine Glucose POC Glucose 190 H 166 H 171 H Lactic Acid Calcium Ferritin AST Alkaline Phosphatase Magnesium Lactate Dehydrogenase Total Creatine Kinase CK-MB (CK-2) C-Reactive Protein Total Protein Albumin Troponin T HDL Cholesterol Urine WBC (Auto) Urine Creatinine Urine Total Protein Coronavirus (PCR) Crossmatch 06/24/20 06/24/20 06/24/20 04:48 05:35 11:48 WBC RBC Hgb Hct MCHC RDW Lymph % (Auto) [place] % (Auto) Eos % (Auto) Lymph # [place] # Lymph # (Auto) [place] # (Auto) Seg Neutrophils % Seg Neuts % (Manual) Lymphocytes % (Manual) Seg Neutrophils # Seg Neutrophils # Man Lymphocytes # (Manual) Monocytes % (Manual) Eosinophils % (Manual) Monocytes # (Manual) Eosinophils # (Manual) D-Dimer Heparin Anti-Xa Level ABG pH POC ABG pCO2 POC ABG pO2 ABG pO2 ABG HCO3 ABG O2 Saturation ABG Base Excess ABG Hemoglobin ABG Oxyhemoglobin VBG pH Oxyhemoglobin Sodium Potassium Chloride Carbon Dioxide BUN 75 H Creatinine 2.6 H Glucose 179 H POC Glucose 172 H 153 H Lactic Acid Calcium Ferritin AST Alkaline Phosphatase Magnesium Lactate Dehydrogenase Total Creatine Kinase CK-MB (CK-2) C-Reactive Protein Total Protein Albumin Troponin T HDL Cholesterol Urine WBC (Auto) Urine Creatinine Urine Total Protein Coronavirus (PCR) Crossmatch 06/24/20 06/24/20 06/25/20 16:38 21:52 12:00 WBC RBC Hgb Hct MCHC RDW Lymph % (Auto) [place] % (Auto) Eos % (Auto) Lymph # [place] # Lymph # (Auto) [place] # (Auto) Seg Neutrophils % Seg Neuts % (Manual) Lymphocytes % (Manual) Seg Neutrophils # Seg Neutrophils # Man Lymphocytes # (Manual) Monocytes % (Manual) Eosinophils % (Manual) Monocytes # (Manual) Eosinophils # (Manual) D-Dimer Heparin Anti-Xa Level ABG pH POC ABG pCO2 POC ABG pO2 ABG pO2 ABG HCO3 ABG O2 Saturation ABG Base Excess ABG Hemoglobin ABG Oxyhemoglobin VBG pH Oxyhemoglobin Sodium Potassium Chloride Carbon Dioxide BUN Creatinine Glucose POC Glucose 123 H 115 H 203 H Lactic Acid Calcium Ferritin AST Alkaline Phosphatase Magnesium Lactate Dehydrogenase Total Creatine Kinase CK-MB (CK-2) C-Reactive Protein Total Protein Albumin Troponin T HDL Cholesterol Urine WBC (Auto) Urine Creatinine Urine Total Protein Coronavirus (PCR) Crossmatch 06/25/20 06/25/20 06/25/20 15:43 16:37 23:02 WBC RBC Hgb Hct MCHC RDW Lymph % (Auto) [place] % (Auto) Eos % (Auto) Lymph # [place] # Lymph # (Auto) [place] # (Auto) Seg Neutrophils % Seg Neuts % (Manual) Lymphocytes % (Manual) Seg Neutrophils # Seg Neutrophils # Man Lymphocytes # (Manual) Monocytes % (Manual) Eosinophils % (Manual) Monocytes # (Manual) Eosinophils # (Manual) D-Dimer Heparin Anti-Xa Level ABG pH POC ABG pCO2 POC ABG pO2 ABG pO2 ABG HCO3 ABG O2 Saturation ABG Base Excess ABG Hemoglobin ABG Oxyhemoglobin VBG pH Oxyhemoglobin Sodium Potassium Chloride Carbon Dioxide BUN 71 H Creatinine 1.8 H Glucose 170 H POC Glucose 191 H 126 H Lactic Acid Calcium 8.2 L Ferritin AST Alkaline Phosphatase Magnesium Lactate Dehydrogenase Total Creatine Kinase CK-MB (CK-2) C-Reactive Protein Total Protein Albumin Troponin T HDL Cholesterol Urine WBC (Auto) Urine Creatinine Urine Total Protein Coronavirus (PCR) Crossmatch 06/26/20 06/26/20 06/26/20 06:34 06:34 09:27 WBC RBC 2.41 L Hgb 6.9 L Hct 21.5 L MCHC RDW 16.7 H Lymph % (Auto) 10.9 L [place] % (Auto) 9.6 H Eos % (Auto) Lymph # 0.7 L [place] # Lymph # (Auto) [place] # (Auto) Seg Neutrophils % 75.4 H Seg Neuts % (Manual) Lymphocytes % (Manual) Seg Neutrophils # Seg Neutrophils # Man Lymphocytes # (Manual) Monocytes % (Manual) Eosinophils % (Manual) Monocytes # (Manual) Eosinophils # (Manual) D-Dimer Heparin Anti-Xa Level ABG pH POC ABG pCO2 POC ABG pO2 ABG pO2 ABG HCO3 ABG O2 Saturation ABG Base Excess ABG Hemoglobin ABG Oxyhemoglobin VBG pH Oxyhemoglobin Sodium Potassium Chloride Carbon Dioxide BUN 77 H Creatinine 1.9 H Glucose 190 H POC Glucose Lactic Acid Calcium Ferritin AST Alkaline Phosphatase Magnesium Lactate Dehydrogenase Total Creatine Kinase CK-MB (CK-2) C-Reactive Protein Total Protein Albumin Troponin T HDL Cholesterol Urine WBC (Auto) Urine Creatinine Urine Total Protein Coronavirus (PCR) Crossmatch See Detail 06/26/20 06/26/20 06/26/20 12:15 16:28 17:28 WBC RBC Hgb Hct MCHC RDW Lymph % (Auto) [place] % (Auto) Eos % (Auto) Lymph # [place] # Lymph # (Auto) [place] # (Auto) Seg Neutrophils % Seg Neuts % (Manual) Lymphocytes % (Manual) Seg Neutrophils # Seg Neutrophils # Man Lymphocytes # (Manual) Monocytes % (Manual) Eosinophils % (Manual) Monocytes # (Manual) Eosinophils # (Manual) D-Dimer Heparin Anti-Xa Level ABG pH POC ABG pCO2 POC ABG pO2 ABG pO2 ABG HCO3 ABG O2 Saturation ABG Base Excess ABG Hemoglobin ABG Oxyhemoglobin VBG pH Oxyhemoglobin Sodium Potassium Chloride Carbon Dioxide BUN Creatinine Glucose POC Glucose 187 H 149 H 189 H Lactic Acid Calcium Ferritin AST Alkaline Phosphatase Magnesium Lactate Dehydrogenase Total Creatine Kinase CK-MB (CK-2) C-Reactive Protein Total Protein Albumin Troponin T HDL Cholesterol Urine WBC (Auto) Urine Creatinine Urine Total Protein Coronavirus (PCR) Crossmatch 06/26/20 06/26/20 06/26/20 18:30 18:30 18:30 WBC RBC 2.87 L Hgb 8.2 L Hct 25.9 L MCHC RDW 17.8 H Lymph % (Auto) [place] % (Auto) Eos % (Auto) Lymph # [place] # Lymph # (Auto) [place] # (Auto) Seg Neutrophils % Seg Neuts % (Manual) 83.0 H Lymphocytes % (Manual) 8.0 L Seg Neutrophils # Seg Neutrophils # Man Lymphocytes # (Manual) 0.6 L Monocytes % (Manual) Eosinophils % (Manual) Monocytes # (Manual) Eosinophils # (Manual) D-Dimer Heparin Anti-Xa Level ABG pH POC ABG pCO2 POC ABG pO2 ABG pO2 ABG HCO3 ABG O2 Saturation ABG Base Excess ABG Hemoglobin ABG Oxyhemoglobin VBG pH Oxyhemoglobin Sodium Potassium Chloride Carbon Dioxide BUN 80 H Creatinine 2.1 H Glucose 260 H POC Glucose Lactic Acid 4.30 H* Calcium 8.3 L Ferritin AST Alkaline Phosphatase Magnesium Lactate Dehydrogenase Total Creatine Kinase CK-MB (CK-2) C-Reactive Protein Total Protein Albumin Troponin T HDL Cholesterol Urine WBC (Auto) Urine Creatinine Urine Total Protein Coronavirus (PCR) Crossmatch 06/26/20 06/27/20 06/27/20 18:50 01:00 04:29 WBC RBC Hgb Hct MCHC RDW Lymph % (Auto) [place] % (Auto) Eos % (Auto) Lymph # [place] # Lymph # (Auto) [place] # (Auto) Seg Neutrophils % Seg Neuts % (Manual) Lymphocytes % (Manual) Seg Neutrophils # Seg Neutrophils # Man Lymphocytes # (Manual) Monocytes % (Manual) Eosinophils % (Manual) Monocytes # (Manual) Eosinophils # (Manual) D-Dimer Heparin Anti-Xa Level ABG pH 7.296 L POC ABG pCO2 POC ABG pO2 ABG pO2 116.5 H 200.5 H ABG HCO3 28.4 H ABG O2 Saturation 99.3 H ABG Base Excess 3.7 H ABG Hemoglobin 5.6 L ABG Oxyhemoglobin VBG pH Oxyhemoglobin Sodium Potassium Chloride Carbon Dioxide BUN Creatinine Glucose POC Glucose 123 H Lactic Acid Calcium Ferritin AST Alkaline Phosphatase Magnesium Lactate Dehydrogenase Total Creatine Kinase CK-MB (CK-2) C-Reactive Protein Total Protein Albumin Troponin T HDL Cholesterol Urine WBC (Auto) Urine Creatinine Urine Total Protein Coronavirus (PCR) Crossmatch 06/27/20 06/27/20 06/27/20 05:00 05:00 05:00 WBC RBC 2.75 L Hgb 7.9 L Hct 24.3 L MCHC RDW 17.1 H Lymph % (Auto) 8.5 L [place] % (Auto) 12.6 H Eos % (Auto) Lymph # 0.7 L [place] # 1.0 H Lymph # (Auto) [place] # (Auto) Seg Neutrophils % 77.5 H Seg Neuts % (Manual) Lymphocytes % (Manual) Seg Neutrophils # Seg Neutrophils # Man Lymphocytes # (Manual) Monocytes % (Manual) Eosinophils % (Manual) Monocytes # (Manual) Eosinophils # (Manual) D-Dimer Heparin Anti-Xa Level ABG pH POC ABG pCO2 POC ABG pO2 ABG pO2 ABG HCO3 ABG O2 Saturation ABG Base Excess ABG Hemoglobin ABG Oxyhemoglobin VBG pH Oxyhemoglobin Sodium Potassium Chloride Carbon Dioxide BUN 80 H Creatinine 2.0 H Glucose 129 H POC Glucose Lactic Acid 0.60 L Calcium 7.9 L Ferritin AST Alkaline Phosphatase Magnesium Lactate Dehydrogenase Total Creatine Kinase CK-MB (CK-2) C-Reactive Protein Total Protein Albumin Troponin T HDL Cholesterol Urine WBC (Auto) Urine Creatinine Urine Total Protein Coronavirus (PCR) Crossmatch 06/27/20 06/27/20 06/27/20 05:23 13:46 17:25 WBC RBC Hgb Hct MCHC RDW Lymph % (Auto) [place] % (Auto) Eos % (Auto) Lymph # [place] # Lymph # (Auto) [place] # (Auto) Seg Neutrophils % Seg Neuts % (Manual) Lymphocytes % (Manual) Seg Neutrophils # Seg Neutrophils # Man Lymphocytes # (Manual) Monocytes % (Manual) Eosinophils % (Manual) Monocytes # (Manual) Eosinophils # (Manual) D-Dimer Heparin Anti-Xa Level ABG pH POC ABG pCO2 POC ABG pO2 ABG pO2 ABG HCO3 ABG O2 Saturation ABG Base Excess ABG Hemoglobin ABG Oxyhemoglobin VBG pH Oxyhemoglobin Sodium Potassium Chloride Carbon Dioxide BUN Creatinine Glucose POC Glucose 109 H 158 H 162 H Lactic Acid Calcium Ferritin AST Alkaline Phosphatase Magnesium Lactate Dehydrogenase Total Creatine Kinase CK-MB (CK-2) C-Reactive Protein Total Protein Albumin Troponin T HDL Cholesterol Urine WBC (Auto) Urine Creatinine Urine Total Protein Coronavirus (PCR) Crossmatch 06/27/20 06/27/20 06/28/20 18:43 23:46 04:05 WBC RBC Hgb 7.7 L Hct 22.1 L MCHC RDW Lymph % (Auto) [place] % (Auto) Eos % (Auto) Lymph # [place] # Lymph # (Auto) [place] # (Auto) Seg Neutrophils % Seg Neuts % (Manual) Lymphocytes % (Manual) Seg Neutrophils # Seg Neutrophils # Man Lymphocytes # (Manual) Monocytes % (Manual) Eosinophils % (Manual) Monocytes # (Manual) Eosinophils # (Manual) D-Dimer Heparin Anti-Xa Level ABG pH POC ABG pCO2 POC ABG pO2 ABG pO2 102.7 H ABG HCO3 28.7 H ABG O2 Saturation ABG Base Excess 3.7 H ABG Hemoglobin ABG Oxyhemoglobin VBG pH Oxyhemoglobin Sodium Potassium Chloride Carbon Dioxide BUN Creatinine Glucose POC Glucose 142 H Lactic Acid Calcium Ferritin AST Alkaline Phosphatase Magnesium Lactate Dehydrogenase Total Creatine Kinase CK-MB (CK-2) C-Reactive Protein Total Protein Albumin Troponin T HDL Cholesterol Urine WBC (Auto) Urine Creatinine Urine Total Protein Coronavirus (PCR) Crossmatch 06/28/20 06/28/20 06/28/20 09:47 09:47 12:02 WBC RBC 2.53 L Hgb 7.4 L Hct 22.2 L MCHC RDW 16.8 H Lymph % (Auto) [place] % (Auto) 13.5 H Eos % (Auto) Lymph # 1.1 L [place] # 1.0 H Lymph # (Auto) [place] # (Auto) Seg Neutrophils % Seg Neuts % (Manual) Lymphocytes % (Manual) Seg Neutrophils # Seg Neutrophils # Man Lymphocytes # (Manual) Monocytes % (Manual) Eosinophils % (Manual) Monocytes # (Manual) Eosinophils # (Manual) D-Dimer Heparin Anti-Xa Level ABG pH POC ABG pCO2 POC ABG pO2 ABG pO2 ABG HCO3 ABG O2 Saturation ABG Base Excess ABG Hemoglobin ABG Oxyhemoglobin VBG pH Oxyhemoglobin Sodium Potassium Chloride Carbon Dioxide BUN 80 H Creatinine 1.5 H Glucose 139 H POC Glucose 169 H Lactic Acid Calcium 7.9 L Ferritin AST Alkaline Phosphatase Magnesium Lactate Dehydrogenase Total Creatine Kinase CK-MB (CK-2) C-Reactive Protein Total Protein 5.0 L Albumin 2.1 L Troponin T HDL Cholesterol Urine WBC (Auto) Urine Creatinine Urine Total Protein Coronavirus (PCR) Crossmatch 06/28/20 06/28/20 06/28/20 12:30 12:30 17:24 WBC RBC 2.38 L Hgb 7.3 L Hct 20.9 L MCHC 35 H RDW 16.7 H Lymph % (Auto) [place] % (Auto) Eos % (Auto) Lymph # [place] # Lymph # (Auto) [place] # (Auto) Seg Neutrophils % Seg Neuts % (Manual) Lymphocytes % (Manual) Seg Neutrophils # Seg Neutrophils # Man Lymphocytes # (Manual) Monocytes % (Manual) Eosinophils % (Manual) Monocytes # (Manual) Eosinophils # (Manual) D-Dimer Heparin Anti-Xa Level ABG pH POC ABG pCO2 POC ABG pO2 ABG pO2 ABG HCO3 ABG O2 Saturation ABG Base Excess ABG Hemoglobin ABG Oxyhemoglobin VBG pH Oxyhemoglobin Sodium Potassium Chloride Carbon Dioxide BUN 74 H Creatinine 1.5 H Glucose 143 H POC Glucose 173 H Lactic Acid Calcium 7.5 L Ferritin AST Alkaline Phosphatase Magnesium Lactate Dehydrogenase Total Creatine Kinase CK-MB (CK-2) C-Reactive Protein Total Protein Albumin Troponin T HDL Cholesterol Urine WBC (Auto) Urine Creatinine Urine Total Protein Coronavirus (PCR) Crossmatch 06/29/20 06/29/20 06/29/20 00:02 03:54 04:38 WBC RBC 2.55 L Hgb 7.3 L Hct 22.4 L MCHC RDW 16.4 H Lymph % (Auto) 13.3 L [place] % (Auto) 12.5 H Eos % (Auto) Lymph # 1.1 L [place] # 1.0 H Lymph # (Auto) [place] # (Auto) Seg Neutrophils % Seg Neuts % (Manual) Lymphocytes % (Manual) Seg Neutrophils # Seg Neutrophils # Man Lymphocytes # (Manual) Monocytes % (Manual) Eosinophils % (Manual) Monocytes # (Manual) Eosinophils # (Manual) D-Dimer Heparin Anti-Xa Level ABG pH POC ABG pCO2 POC ABG pO2 ABG pO2 ABG HCO3 26.9 H ABG O2 Saturation ABG Base Excess ABG Hemoglobin 6.9 L ABG Oxyhemoglobin VBG pH Oxyhemoglobin Sodium Potassium Chloride Carbon Dioxide BUN Creatinine Glucose POC Glucose 142 H Lactic Acid Calcium Ferritin AST Alkaline Phosphatase Magnesium Lactate Dehydrogenase Total Creatine Kinase CK-MB (CK-2) C-Reactive Protein Total Protein Albumin Troponin T HDL Cholesterol Urine WBC (Auto) Urine Creatinine Urine Total Protein Coronavirus (PCR) Crossmatch 06/29/20 06/29/20 06/29/20 04:38 05:38 12:25 WBC RBC Hgb Hct MCHC RDW Lymph % (Auto) [place] % (Auto) Eos % (Auto) Lymph # [place] # Lymph # (Auto) [place] # (Auto) Seg Neutrophils % Seg Neuts % (Manual) Lymphocytes % (Manual) Seg Neutrophils # Seg Neutrophils # Man Lymphocytes # (Manual) Monocytes % (Manual) Eosinophils % (Manual) Monocytes # (Manual) Eosinophils # (Manual) D-Dimer Heparin Anti-Xa Level ABG pH POC ABG pCO2 POC ABG pO2 ABG pO2 ABG HCO3 ABG O2 Saturation ABG Base Excess ABG Hemoglobin ABG Oxyhemoglobin VBG pH Oxyhemoglobin Sodium Potassium Chloride 107.8 H Carbon Dioxide BUN 72 H Creatinine 1.4 H Glucose 127 H POC Glucose 122 H 138 H Lactic Acid Calcium 7.4 L Ferritin AST Alkaline Phosphatase Magnesium Lactate Dehydrogenase Total Creatine Kinase CK-MB (CK-2) C-Reactive Protein Total Protein Albumin Troponin T HDL Cholesterol Urine WBC (Auto) Urine Creatinine Urine Total Protein Coronavirus (PCR) Crossmatch 06/29/20 06/29/20 06/29/20 14:45 14:45 14:45 WBC RBC Hgb Hct MCHC RDW Lymph % (Auto) [place] % (Auto) Eos % (Auto) Lymph # [place] # Lymph # (Auto) [place] # (Auto) Seg Neutrophils % Seg Neuts % (Manual) Lymphocytes % (Manual) Seg Neutrophils # Seg Neutrophils # Man Lymphocytes # (Manual) Monocytes % (Manual) Eosinophils % (Manual) Monocytes # (Manual) Eosinophils # (Manual) D-Dimer 2310.15 H Heparin Anti-Xa Level ABG pH POC ABG pCO2 POC ABG pO2 ABG pO2 ABG HCO3 ABG O2 Saturation ABG Base Excess ABG Hemoglobin ABG Oxyhemoglobin VBG pH Oxyhemoglobin Sodium Potassium Chloride Carbon Dioxide BUN Creatinine Glucose POC Glucose Lactic Acid Calcium Ferritin 223.6 H AST Alkaline Phosphatase Magnesium Lactate Dehydrogenase 367 H Total Creatine Kinase CK-MB (CK-2) C-Reactive Protein 3.60 H Total Protein Albumin Troponin T HDL Cholesterol Urine WBC (Auto) Urine Creatinine Urine Total Protein Coronavirus (PCR) Crossmatch 06/29/20 06/29/20 06/29/20 18:27 23:35 Unknown WBC RBC Hgb Hct MCHC RDW Lymph % (Auto) [place] % (Auto) Eos % (Auto) Lymph # [place] # Lymph # (Auto) [place] # (Auto) Seg Neutrophils % Seg Neuts % (Manual) Lymphocytes % (Manual) Seg Neutrophils # Seg Neutrophils # Man Lymphocytes # (Manual) Monocytes % (Manual) Eosinophils % (Manual) Monocytes # (Manual) Eosinophils # (Manual) D-Dimer Heparin Anti-Xa Level ABG pH POC ABG pCO2 POC ABG pO2 ABG pO2 ABG HCO3 ABG O2 Saturation ABG Base Excess ABG Hemoglobin ABG Oxyhemoglobin VBG pH Oxyhemoglobin Sodium Potassium Chloride Carbon Dioxide BUN Creatinine Glucose POC Glucose 112 H 140 H Lactic Acid Calcium Ferritin AST Alkaline Phosphatase Magnesium Lactate Dehydrogenase Total Creatine Kinase CK-MB (CK-2) C-Reactive Protein Total Protein Albumin Troponin T HDL Cholesterol Urine WBC (Auto) Urine Creatinine Urine Total Protein Coronavirus (PCR) Positive A Crossmatch 06/30/20 06/30/20 06/30/20 04:10 04:10 06:09 WBC RBC 2.44 L Hgb 7.1 L Hct 21.5 L MCHC RDW 16.6 H Lymph % (Auto) 11.0 L [place] % (Auto) 10.8 H Eos % (Auto) Lymph # 0.9 L [place] # 0.9 H Lymph # (Auto) [place] # (Auto) Seg Neutrophils % 73.7 H Seg Neuts % (Manual) Lymphocytes % (Manual) Seg Neutrophils # Seg Neutrophils # Man Lymphocytes # (Manual) Monocytes % (Manual) Eosinophils % (Manual) Monocytes # (Manual) Eosinophils # (Manual) D-Dimer Heparin Anti-Xa Level ABG pH POC ABG pCO2 POC ABG pO2 ABG pO2 ABG HCO3 ABG O2 Saturation ABG Base Excess ABG Hemoglobin ABG Oxyhemoglobin VBG pH Oxyhemoglobin Sodium Potassium Chloride 109.1 H Carbon Dioxide BUN 74 H Creatinine 1.3 H Glucose 191 H POC Glucose 187 H Lactic Acid Calcium 7.8 L Ferritin AST Alkaline Phosphatase Magnesium Lactate Dehydrogenase Total Creatine Kinase CK-MB (CK-2) C-Reactive Protein Total Protein Albumin Troponin T HDL Cholesterol Urine WBC (Auto) Urine Creatinine Urine Total Protein Coronavirus (PCR) Crossmatch 06/30/20 06/30/20 06/30/20 12:04 17:43 23:41 WBC RBC Hgb Hct MCHC RDW Lymph % (Auto) [place] % (Auto) Eos % (Auto) Lymph # [place] # Lymph # (Auto) [place] # (Auto) Seg Neutrophils % Seg Neuts % (Manual) Lymphocytes % (Manual) Seg Neutrophils # Seg Neutrophils # Man Lymphocytes # (Manual) Monocytes % (Manual) Eosinophils % (Manual) Monocytes # (Manual) Eosinophils # (Manual) D-Dimer Heparin Anti-Xa Level ABG pH POC ABG pCO2 POC ABG pO2 ABG pO2 ABG HCO3 ABG O2 Saturation ABG Base Excess ABG Hemoglobin ABG Oxyhemoglobin VBG pH Oxyhemoglobin Sodium Potassium Chloride Carbon Dioxide BUN Creatinine Glucose POC Glucose 112 H 177 H 143 H Lactic Acid Calcium Ferritin AST Alkaline Phosphatase Magnesium Lactate Dehydrogenase Total Creatine Kinase CK-MB (CK-2) C-Reactive Protein Total Protein Albumin Troponin T HDL Cholesterol Urine WBC (Auto) Urine Creatinine Urine Total Protein Coronavirus (PCR) Crossmatch 07/01/20 07/01/20 07/01/20 05:02 05:52 06:01 WBC 12.6 H RBC 2.95 L Hgb 8.2 L Hct 26.0 L MCHC RDW 16.9 H Lymph % (Auto) [place] % (Auto) Eos % (Auto) Lymph # [place] # Lymph # (Auto) [place] # (Auto) Seg Neutrophils % Seg Neuts % (Manual) Lymphocytes % (Manual) Seg Neutrophils # Seg Neutrophils # Man 8.6 H Lymphocytes # (Manual) Monocytes % (Manual) Eosinophils % (Manual) 5.0 H Monocytes # (Manual) Eosinophils # (Manual) 0.6 H D-Dimer Heparin Anti-Xa Level ABG pH POC ABG pCO2 POC ABG pO2 ABG pO2 ABG HCO3 ABG O2 Saturation ABG Base Excess ABG Hemoglobin 8.2 L ABG Oxyhemoglobin VBG pH Oxyhemoglobin Sodium Potassium Chloride Carbon Dioxide BUN Creatinine Glucose POC Glucose 129 H Lactic Acid Calcium Ferritin AST Alkaline Phosphatase Magnesium Lactate Dehydrogenase Total Creatine Kinase CK-MB (CK-2) C-Reactive Protein Total Protein Albumin Troponin T HDL Cholesterol Urine WBC (Auto) Urine Creatinine Urine Total Protein Coronavirus (PCR) Crossmatch 07/01/20 07/01/20 07/01/20 06:01 06:01 06:08 WBC RBC Hgb Hct MCHC RDW Lymph % (Auto) [place] % (Auto) Eos % (Auto) Lymph # [place] # Lymph # (Auto) [place] # (Auto) Seg Neutrophils % Seg Neuts % (Manual) Lymphocytes % (Manual) Seg Neutrophils # Seg Neutrophils # Man Lymphocytes # (Manual) Monocytes % (Manual) Eosinophils % (Manual) Monocytes # (Manual) Eosinophils # (Manual) D-Dimer Heparin Anti-Xa Level ABG pH POC ABG pCO2 POC ABG pO2 ABG pO2 ABG HCO3 ABG O2 Saturation ABG Base Excess ABG Hemoglobin ABG Oxyhemoglobin VBG pH Oxyhemoglobin Sodium 147 H Potassium Chloride 108.0 H Carbon Dioxide BUN 71 H Creatinine 1.3 H Glucose 193 H POC Glucose 192 H Lactic Acid Calcium 8.1 L Ferritin AST Alkaline Phosphatase Magnesium Lactate Dehydrogenase Total Creatine Kinase 300 H CK-MB (CK-2) C-Reactive Protein Total Protein Albumin Troponin T 0.067 H HDL Cholesterol 61 H Urine WBC (Auto) Urine Creatinine Urine Total Protein Coronavirus (PCR) Crossmatch 07/01/20 07/01/20 07/02/20 12:23 17:40 00:18 WBC RBC Hgb Hct MCHC RDW Lymph % (Auto) [place] % (Auto) Eos % (Auto) Lymph # [place] # Lymph # (Auto) [place] # (Auto) Seg Neutrophils % Seg Neuts % (Manual) Lymphocytes % (Manual) Seg Neutrophils # Seg Neutrophils # Man Lymphocytes # (Manual) Monocytes % (Manual) Eosinophils % (Manual) Monocytes # (Manual) Eosinophils # (Manual) D-Dimer Heparin Anti-Xa Level ABG pH POC ABG pCO2 POC ABG pO2 ABG pO2 ABG HCO3 ABG O2 Saturation ABG Base Excess ABG Hemoglobin ABG Oxyhemoglobin VBG pH Oxyhemoglobin Sodium Potassium Chloride Carbon Dioxide BUN Creatinine Glucose POC Glucose 111 H 135 H 145 H Lactic Acid Calcium Ferritin AST Alkaline Phosphatase Magnesium Lactate Dehydrogenase Total Creatine Kinase CK-MB (CK-2) C-Reactive Protein Total Protein Albumin Troponin T HDL Cholesterol Urine WBC (Auto) Urine Creatinine Urine Total Protein Coronavirus (PCR) Crossmatch 07/02/20 07/02/20 07/02/20 04:11 04:23 05:54 WBC RBC Hgb Hct MCHC RDW Lymph % (Auto) [place] % (Auto) Eos % (Auto) Lymph # [place] # Lymph # (Auto) [place] # (Auto) Seg Neutrophils % Seg Neuts % (Manual) Lymphocytes % (Manual) Seg Neutrophils # Seg Neutrophils # Man Lymphocytes # (Manual) Monocytes % (Manual) Eosinophils % (Manual) Monocytes # (Manual) Eosinophils # (Manual) D-Dimer Heparin Anti-Xa Level ABG pH POC ABG pCO2 POC ABG pO2 ABG pO2 ABG HCO3 ABG O2 Saturation ABG Base Excess ABG Hemoglobin 5.4 L ABG Oxyhemoglobin VBG pH Oxyhemoglobin Sodium Potassium Chloride 108.6 H Carbon Dioxide BUN 72 H Creatinine Glucose 112 H POC Glucose 137 H Lactic Acid Calcium 7.8 L Ferritin AST Alkaline Phosphatase Magnesium Lactate Dehydrogenase Total Creatine Kinase CK-MB (CK-2) C-Reactive Protein Total Protein Albumin Troponin T HDL Cholesterol Urine WBC (Auto) Urine Creatinine Urine Total Protein Coronavirus (PCR) Crossmatch 07/02/20 07/02/20 07/02/20 11:38 18:04 23:59 WBC RBC Hgb Hct MCHC RDW Lymph % (Auto) [place] % (Auto) Eos % (Auto) Lymph # [place] # Lymph # (Auto) [place] # (Auto) Seg Neutrophils % Seg Neuts % (Manual) Lymphocytes % (Manual) Seg Neutrophils # Seg Neutrophils # Man Lymphocytes # (Manual) Monocytes % (Manual) Eosinophils % (Manual) Monocytes # (Manual) Eosinophils # (Manual) D-Dimer Heparin Anti-Xa Level ABG pH POC ABG pCO2 POC ABG pO2 ABG pO2 ABG HCO3 ABG O2 Saturation ABG Base Excess ABG Hemoglobin ABG Oxyhemoglobin VBG pH Oxyhemoglobin Sodium Potassium Chloride Carbon Dioxide BUN Creatinine Glucose POC Glucose 128 H 135 H 156 H Lactic Acid Calcium Ferritin AST Alkaline Phosphatase Magnesium Lactate Dehydrogenase Total Creatine Kinase CK-MB (CK-2) C-Reactive Protein Total Protein Albumin Troponin T HDL Cholesterol Urine WBC (Auto) Urine Creatinine Urine Total Protein Coronavirus (PCR) Crossmatch 07/03/20 07/03/20 07/03/20 03:49 06:00 11:31 WBC RBC Hgb Hct MCHC RDW Lymph % (Auto) [place] % (Auto) Eos % (Auto) Lymph # [place] # Lymph # (Auto) [place] # (Auto) Seg Neutrophils % Seg Neuts % (Manual) Lymphocytes % (Manual) Seg Neutrophils # Seg Neutrophils # Man Lymphocytes # (Manual) Monocytes % (Manual) Eosinophils % (Manual) Monocytes # (Manual) Eosinophils # (Manual) D-Dimer Heparin Anti-Xa Level ABG pH POC ABG pCO2 POC ABG pO2 ABG pO2 121.0 H ABG HCO3 ABG O2 Saturation ABG Base Excess ABG Hemoglobin 8.5 L ABG Oxyhemoglobin VBG pH Oxyhemoglobin Sodium Potassium Chloride Carbon Dioxide BUN Creatinine Glucose POC Glucose 135 H 141 H Lactic Acid Calcium Ferritin AST Alkaline Phosphatase Magnesium Lactate Dehydrogenase Total Creatine Kinase CK-MB (CK-2) C-Reactive Protein Total Protein Albumin Troponin T HDL Cholesterol Urine WBC (Auto) Urine Creatinine Urine Total Protein Coronavirus (PCR) Crossmatch 07/03/20 07/03/20 07/04/20 16:07 17:40 05:49 WBC RBC Hgb Hct MCHC RDW Lymph % (Auto) [place] % (Auto) Eos % (Auto) Lymph # [place] # Lymph # (Auto) [place] # (Auto) Seg Neutrophils % Seg Neuts % (Manual) Lymphocytes % (Manual) Seg Neutrophils # Seg Neutrophils # Man Lymphocytes # (Manual) Monocytes % (Manual) Eosinophils % (Manual) Monocytes # (Manual) Eosinophils # (Manual) D-Dimer Heparin Anti-Xa Level ABG pH POC ABG pCO2 POC ABG pO2 ABG pO2 126.9 H ABG HCO3 ABG O2 Saturation ABG Base Excess ABG Hemoglobin 8.1 L ABG Oxyhemoglobin VBG pH Oxyhemoglobin Sodium Potassium Chloride Carbon Dioxide BUN Creatinine Glucose POC Glucose 120 H 128 H Lactic Acid Calcium Ferritin AST Alkaline Phosphatase Magnesium Lactate Dehydrogenase Total Creatine Kinase CK-MB (CK-2) C-Reactive Protein Total Protein Albumin Troponin T HDL Cholesterol Urine WBC (Auto) Urine Creatinine Urine Total Protein Coronavirus (PCR) Crossmatch 07/04/20 07/04/20 07/05/20 11:54 18:00 00:07 WBC RBC Hgb Hct MCHC RDW Lymph % (Auto) [place] % (Auto) Eos % (Auto) Lymph # [place] # Lymph # (Auto) [place] # (Auto) Seg Neutrophils % Seg Neuts % (Manual) Lymphocytes % (Manual) Seg Neutrophils # Seg Neutrophils # Man Lymphocytes # (Manual) Monocytes % (Manual) Eosinophils % (Manual) Monocytes # (Manual) Eosinophils # (Manual) D-Dimer Heparin Anti-Xa Level ABG pH POC ABG pCO2 POC ABG pO2 ABG pO2 ABG HCO3 ABG O2 Saturation ABG Base Excess ABG Hemoglobin ABG Oxyhemoglobin VBG pH Oxyhemoglobin Sodium Potassium Chloride Carbon Dioxide BUN Creatinine Glucose POC Glucose 168 H 133 H 121 H Lactic Acid Calcium Ferritin AST Alkaline Phosphatase Magnesium Lactate Dehydrogenase Total Creatine Kinase CK-MB (CK-2) C-Reactive Protein Total Protein Albumin Troponin T HDL Cholesterol Urine WBC (Auto) Urine Creatinine Urine Total Protein Coronavirus (PCR) Crossmatch 07/05/20 07/05/20 07/05/20 01:12 02:30 12:09 WBC RBC 2.35 L Hgb 6.9 L Hct 21.1 L MCHC RDW 16.8 H Lymph % (Auto) [place] % (Auto) Eos % (Auto) Lymph # [place] # Lymph # (Auto) [place] # (Auto) Seg Neutrophils % Seg Neuts % (Manual) 74.0 H Lymphocytes % (Manual) 12.0 L Seg Neutrophils # Seg Neutrophils # Man 8.0 H Lymphocytes # (Manual) Monocytes % (Manual) 9.0 H Eosinophils % (Manual) Monocytes # (Manual) 1.0 H Eosinophils # (Manual) D-Dimer Heparin Anti-Xa Level ABG pH POC ABG pCO2 POC ABG pO2 ABG pO2 ABG HCO3 ABG O2 Saturation ABG Base Excess ABG Hemoglobin ABG Oxyhemoglobin VBG pH Oxyhemoglobin Sodium Potassium Chloride Carbon Dioxide BUN Creatinine Glucose POC Glucose 132 H Lactic Acid Calcium Ferritin AST Alkaline Phosphatase Magnesium Lactate Dehydrogenase Total Creatine Kinase CK-MB (CK-2) C-Reactive Protein Total Protein Albumin Troponin T HDL Cholesterol Urine WBC (Auto) Urine Creatinine Urine Total Protein Coronavirus (PCR) Crossmatch See Detail 07/05/20 07/05/20 07/05/20 13:05 18:04 23:13 WBC RBC 2.57 L Hgb 7.7 L Hct 23.0 L MCHC RDW 16.9 H Lymph % (Auto) [place] % (Auto) Eos % (Auto) Lymph # [place] # Lymph # (Auto) [place] # (Auto) Seg Neutrophils % Seg Neuts % (Manual) Lymphocytes % (Manual) Seg Neutrophils # Seg Neutrophils # Man Lymphocytes # (Manual) Monocytes % (Manual) Eosinophils % (Manual) Monocytes # (Manual) Eosinophils # (Manual) D-Dimer Heparin Anti-Xa Level ABG pH 7.32 L POC ABG pCO2 POC ABG pO2 ABG pO2 78.3 L ABG HCO3 ABG O2 Saturation ABG Base Excess -2.6 L ABG Hemoglobin 7.3 L ABG Oxyhemoglobin VBG pH Oxyhemoglobin Sodium Potassium Chloride Carbon Dioxide BUN Creatinine Glucose POC Glucose 160 H Lactic Acid Calcium Ferritin AST Alkaline Phosphatase Magnesium Lactate Dehydrogenase Total Creatine Kinase CK-MB (CK-2) C-Reactive Protein Total Protein Albumin Troponin T HDL Cholesterol Urine WBC (Auto) Urine Creatinine Urine Total Protein Coronavirus (PCR) Crossmatch 07/05/20 07/05/20 07/06/20 23:13 23:43 13:20 WBC RBC Hgb Hct MCHC RDW Lymph % (Auto) [place] % (Auto) Eos % (Auto) Lymph # [place] # Lymph # (Auto) [place] # (Auto) Seg Neutrophils % Seg Neuts % (Manual) Lymphocytes % (Manual) Seg Neutrophils # Seg Neutrophils # Man Lymphocytes # (Manual) Monocytes % (Manual) Eosinophils % (Manual) Monocytes # (Manual) Eosinophils # (Manual) D-Dimer Heparin Anti-Xa Level ABG pH POC ABG pCO2 POC ABG pO2 ABG pO2 ABG HCO3 ABG O2 Saturation ABG Base Excess ABG Hemoglobin ABG Oxyhemoglobin VBG pH Oxyhemoglobin Sodium Potassium Chloride Carbon Dioxide 20 L BUN 80 H Creatinine 2.4 H D Glucose 124 H POC Glucose 121 H Lactic Acid Calcium 7.6 L Ferritin AST Alkaline Phosphatase Magnesium Lactate Dehydrogenase Total Creatine Kinase CK-MB (CK-2) C-Reactive Protein Total Protein Albumin Troponin T HDL Cholesterol Urine WBC (Auto) Urine Creatinine 33.3 H Urine Total Protein Coronavirus (PCR) Crossmatch 07/06/20 07/06/20 07/07/20 14:48 17:28 00:12 WBC RBC Hgb Hct MCHC RDW Lymph % (Auto) [place] % (Auto) Eos % (Auto) Lymph # [place] # Lymph # (Auto) [place] # (Auto) Seg Neutrophils % Seg Neuts % (Manual) Lymphocytes % (Manual) Seg Neutrophils # Seg Neutrophils # Man Lymphocytes # (Manual) Monocytes % (Manual) Eosinophils % (Manual) Monocytes # (Manual) Eosinophils # (Manual) D-Dimer Heparin Anti-Xa Level ABG pH POC ABG pCO2 POC ABG pO2 ABG pO2 ABG HCO3 ABG O2 Saturation ABG Base Excess ABG Hemoglobin ABG Oxyhemoglobin VBG pH Oxyhemoglobin Sodium 136 L Potassium 5.5 H Chloride Carbon Dioxide 19 L BUN 82 H Creatinine 2.5 H Glucose 113 H POC Glucose 133 H 154 H Lactic Acid Calcium 7.7 L Ferritin AST Alkaline Phosphatase Magnesium Lactate Dehydrogenase Total Creatine Kinase CK-MB (CK-2) C-Reactive Protein Total Protein Albumin Troponin T HDL Cholesterol Urine WBC (Auto) Urine Creatinine Urine Total Protein Coronavirus (PCR) Crossmatch 07/07/20 07/07/20 07/07/20 04:15 04:15 05:31 WBC RBC 2.28 L Hgb 6.8 L Hct 20.7 L MCHC RDW 16.8 H Lymph % (Auto) [place] % (Auto) Eos % (Auto) Lymph # [place] # Lymph # (Auto) [place] # (Auto) Seg Neutrophils % Seg Neuts % (Manual) Lymphocytes % (Manual) 13.0 L Seg Neutrophils # Seg Neutrophils # Man Lymphocytes # (Manual) 1.0 L Monocytes % (Manual) 11.0 H Eosinophils % (Manual) Monocytes # (Manual) 0.9 H Eosinophils # (Manual) D-Dimer Heparin Anti-Xa Level ABG pH POC ABG pCO2 POC ABG pO2 ABG pO2 ABG HCO3 ABG O2 Saturation ABG Base Excess ABG Hemoglobin ABG Oxyhemoglobin VBG pH Oxyhemoglobin Sodium Potassium Chloride Carbon Dioxide BUN Creatinine Glucose POC Glucose 135 H Lactic Acid Calcium Ferritin AST Alkaline Phosphatase Magnesium 2.50 H Lactate Dehydrogenase Total Creatine Kinase CK-MB (CK-2) C-Reactive Protein Total Protein Albumin Troponin T HDL Cholesterol Urine WBC (Auto) Urine Creatinine Urine Total Protein Coronavirus (PCR) Crossmatch 07/07/20 07/07/20 07/07/20 12:31 13:22 17:55 WBC RBC Hgb Hct MCHC RDW Lymph % (Auto) [place] % (Auto) Eos % (Auto) Lymph # [place] # Lymph # (Auto) [place] # (Auto) Seg Neutrophils % Seg Neuts % (Manual) Lymphocytes % (Manual) Seg Neutrophils # Seg Neutrophils # Man Lymphocytes # (Manual) Monocytes % (Manual) Eosinophils % (Manual) Monocytes # (Manual) Eosinophils # (Manual) D-Dimer Heparin Anti-Xa Level ABG pH POC ABG pCO2 POC ABG pO2 ABG pO2 ABG HCO3 ABG O2 Saturation ABG Base Excess ABG Hemoglobin ABG Oxyhemoglobin VBG pH Oxyhemoglobin Sodium Potassium 5.6 H Chloride Carbon Dioxide BUN 86 H Creatinine 2.9 H Glucose 127 H POC Glucose 131 H 136 H Lactic Acid Calcium 8.1 L Ferritin AST Alkaline Phosphatase Magnesium Lactate Dehydrogenase Total Creatine Kinase CK-MB (CK-2) C-Reactive Protein Total Protein Albumin Troponin T HDL Cholesterol Urine WBC (Auto) Urine Creatinine Urine Total Protein Coronavirus (PCR) Crossmatch 07/07/20 07/08/20 07/08/20 23:33 04:14 04:14 WBC RBC 3.28 L Hgb 9.7 L Hct 28.9 L D MCHC RDW 16.4 H Lymph % (Auto) 10.3 L [place] % (Auto) 10.0 H Eos % (Auto) Lymph # [place] # Lymph # (Auto) 1.1 L [place] # (Auto) 1.1 H Seg Neutrophils % 77.2 H Seg Neuts % (Manual) Lymphocytes % (Manual) Seg Neutrophils # 8.2 H Seg Neutrophils # Man Lymphocytes # (Manual) Monocytes % (Manual) Eosinophils % (Manual) Monocytes # (Manual) Eosinophils # (Manual) D-Dimer Heparin Anti-Xa Level ABG pH POC ABG pCO2 POC ABG pO2 ABG pO2 ABG HCO3 ABG O2 Saturation ABG Base Excess ABG Hemoglobin ABG Oxyhemoglobin VBG pH Oxyhemoglobin Sodium 136 L Potassium Chloride Carbon Dioxide BUN 84 H Creatinine 2.8 H Glucose 109 H POC Glucose 159 H Lactic Acid Calcium 8.1 L Ferritin AST Alkaline Phosphatase Magnesium 2.50 H Lactate Dehydrogenase Total Creatine Kinase CK-MB (CK-2) C-Reactive Protein Total Protein Albumin Troponin T HDL Cholesterol Urine WBC (Auto) Urine Creatinine Urine Total Protein Coronavirus (PCR) Crossmatch 07/08/20 07/08/20 07/08/20 12:10 18:10 23:50 WBC RBC Hgb Hct MCHC RDW Lymph % (Auto) [place] % (Auto) Eos % (Auto) Lymph # [place] # Lymph # (Auto) [place] # (Auto) Seg Neutrophils % Seg Neuts % (Manual) Lymphocytes % (Manual) Seg Neutrophils # Seg Neutrophils # Man Lymphocytes # (Manual) Monocytes % (Manual) Eosinophils % (Manual) Monocytes # (Manual) Eosinophils # (Manual) D-Dimer Heparin Anti-Xa Level ABG pH POC ABG pCO2 POC ABG pO2 ABG pO2 ABG HCO3 ABG O2 Saturation ABG Base Excess ABG Hemoglobin ABG Oxyhemoglobin VBG pH Oxyhemoglobin Sodium Potassium Chloride Carbon Dioxide BUN Creatinine Glucose POC Glucose 108 H 125 H 141 H Lactic Acid Calcium Ferritin AST Alkaline Phosphatase Magnesium Lactate Dehydrogenase Total Creatine Kinase CK-MB (CK-2) C-Reactive Protein Total Protein Albumin Troponin T HDL Cholesterol Urine WBC (Auto) Urine Creatinine Urine Total Protein Coronavirus (PCR) Crossmatch 07/09/20 05:39 WBC RBC Hgb Hct MCHC RDW Lymph % (Auto) [place] % (Auto) Eos % (Auto) Lymph # [place] # Lymph # (Auto) [place] # (Auto) Seg Neutrophils % Seg Neuts % (Manual) Lymphocytes % (Manual) Seg Neutrophils # Seg Neutrophils # Man Lymphocytes # (Manual) Monocytes % (Manual) Eosinophils % (Manual) Monocytes # (Manual) Eosinophils # (Manual) D-Dimer Heparin Anti-Xa Level ABG pH POC ABG pCO2 POC ABG pO2 ABG pO2 ABG HCO3 ABG O2 Saturation ABG Base Excess ABG Hemoglobin ABG Oxyhemoglobin VBG pH Oxyhemoglobin Sodium Potassium Chloride Carbon Dioxide BUN Creatinine Glucose POC Glucose 121 H Lactic Acid Calcium Ferritin AST Alkaline Phosphatase Magnesium Lactate Dehydrogenase Total Creatine Kinase CK-MB (CK-2) C-Reactive Protein Total Protein Albumin Troponin T HDL Cholesterol Urine WBC (Auto) Urine Creatinine Urine Total Protein Coronavirus (PCR) Crossmatch Allied health notes reviewed: nursing
--- NOTE | 2020-07-09 12:02 | Progress Note ---
Assessment and Plan Cultures: Coronavirus PCR 05/28/2020: Positive 05/28/2020 blood culture: no growth 05/28/2020 tracheal aspirate: Usual respiratory bobo 05/28/2020 urine culture: No growth 06/03/2020 urine culture: No growth 06/09/2020 tracheal aspirate Klebsiella pneumoniae 06/28/2020 sputum culture positive for Klebsiella 06/28/2020 blood cultures no growth today 06/29/2020 COV2 PCR positive A/P: 64-year-old female with hypertension, diastolic CHF, pulmonary hypertension, diabetes, obesity hypoventilation syndrome, recent COVID pneumonia, was admitted to the emergency room after she called EMS due to difficulty breathing. On the way to the hospital, patient developed cardiac arrest and was treated as per ACLS protocol: #Cardiac arrest on 07/01/2020. #Sepsis on 06/27/2020: Resolved. After asystolic cardiac arrest on 06/26/2028. #Bilateral pneumonia: Secondary to COVID-19. Completed 5 days of IV Remdesivir 06/02/2020, completed steroids. ?Healthcare associated pneumonia, repeat sputum Klebsiella. Chest x-ray worsening infiltrates. Completed abx. #Acute hypoxic respiratory failure: On mechanical ventilation. Minimal vent settings. #HF: EF 45-50% #Mild LFT elevation: likely from COVID-19. #Severe constipation: Status post manual disimpaction. #Encephalopathy: ? Post cardiac arrest. Recs: -continue supportive care -overall poor prognosis Mallory Wrgiht MD, FACP [facility], [place], [facility] ([facility] C: [phone] O: [phone] F: [phone] Subjective Date of service: 07/09/20 Principal diagnosis: Ac hypoxemic resp failure; COVID-19; pneumonia; CHF; Pulm HTN; OHS; DM II Interval history: Remains intubated, on the vent. No fever. Objective - Exam Narrative Exam: Physical Exam (reviewed in chart due to PPE conservation) Constitutional: intubated, sedated, on the vent Head, Ears, Nose: normocephalic, atraumatic Eyes: limited due to PPE conservation strategy Neck: intubated Oral: intubated Cardiovascular: limited due to PPE conservation strategy Respiratory: limited due to PPE conservation strategy GI: limited due to PPE conservation strategy Musculoskeletal: limited due to PPE conservation strategy Skin: limited due to PPE conservation strategy Hem/Lymphatic: limited due to PPE conservation strategy Psych: no agitation Neurological: sedated, intubated, on the vent, exam limited - Constitutional Vitals: Vital Signs Temp Pulse Resp BP Pulse Ox 97.4 F L 77 13 146/64 97 07/09/20 08:00 07/09/20 11:01 07/09/20 11:01 07/09/20 11:01 07/09/20 11:01 Temperature -Last 24 Hours Temperature 97.4 F Temperature 98.3 F Temperature 97.9 F Temperature 97.9 F Temperature 98.0 F - Labs CBC & Chem 7: 07/08/20 04:14 07/08/20 04:14 Labs: Abnormal lab results 07/08/20 07/08/20 07/08/20 Range/Units 12:10 18:10 23:50 POC Glucose 108 H 125 H 141 H (70-105) 07/09/20 Range/Units 05:39 POC Glucose 121 H (70-105)
--- NOTE | 2020-07-09 19:30 | Progress Note ---
Assessment and Plan Assessment and plan: -- Acute hypoxemic respiratory failure intubated on admission, extubated on 06/12/20 then placed on high flow o2 patient developed another respiratory arrest on 06/26 - reintubated Patient not tolerating weaning parameters CC following, may need trach and PEG if unable to wean --Hyperkalemia; resolved Monitor electrolytes -- Hypertension; uncontrolled Increase hydralazine dose to 75 mg 3 times a day Continue amlodipine, coreg, clonidine and hydralazine --Worsening renal function; creatinine 2.4-2.5-2.9 Vasomotor nephropathy, gentle hydration Avoid nephrotoxins, monitor renal function Reconsult nephrology --Rectal bleeding; Hb dropped from 8.2 -6.9-7.7-6.8 today, Transfused 1 unit PRBC Closely monitor H&H, GI following, no plans of endoscopy --Acute blood loss anemia; Received 2 units of PRBC transfusion, Hb improved from 6.9-7.7-6.8 Patient received 2 units of PRBC in the past, transfuse 1 additional unit today Closely monitor H&H -- s/p cardiac arrest 07/01/2020,s/p CPR per ACLS protocol, refer to code sheet Intubated on vent, full CODE STATUS s/p Cardiac arrest on admission and on 06/26 Cardiology team on board Conservative management as per cardiology --Febrile illness with sepsis persistently positive for COVID-19 and Klebsiella pneumoniae Continue empiric antibiotics - Continue cefepime 2 g IV every 8 hours for now, ID following, completed treatment for COVID-19 --COVID-19 positive since 05/28/2020 Completed treatment, ID following Repeat test 06/29 still positive --Superficial left cephalic vein DVT/elevated D-dimers[COVID 19] Patient is on heparin drip from 05/29/20 D-dimers improved [phone] s/p heparin drip, Discussed with ID, treated with Eliquis 5 mg twice a day for 1 week[per ID] stop date 06/26/2020 -- Acute metabolic encephalopathy, POA likely from sepsis and s/p cardiac arrest with possible anoxic injury -- Acute renal failure: likely ATN Resolved, avoid nephrotoxins --COVID-19 b/l PNA Completed remdesivir on 06/02 Completed dexamethasone - Last dose 06/07 ID recs appreciated. --Klebsiella pneumonia: Initially completed antibiotics with cefepime Repeat sputum culture still positive for Klebsiella, restarted antibiotic Completed second round of 5 days of cefepime on 07/04/2020 --CHF (congestive heart failure) Cardiology following. Ef 45% -- Coffee ground emesis -Stress ulcers Possible stress ulcers, On PPI H/H again dropped - transfuse GI evaluated --Mild LFT elevation: likely from COVID-19. cont to monitor -- DVT prophylaxis Eliquis, SCD to bilateral lower extremities while in bed -- Advance care planning Patient is critically ill with multiple medical problems Poor prognosis, family updated and requesting full code The high probability of a clinically significant, sudden or life threatening deterioration of the [[facility], renal, respiratory, [employer]] system(s) required my full and direct attention, intervention and personal management. The aggregate critical care time was [33] minutes. This time is in addition to time spent performing reported procedures but includes the following: [x] Data Review and interpretation [x] Patient assessment and monitoring of vital signs [x] Documentation [x] Medication orders and management 06/27; Code blue called yesterday. ACLS initiated, Pt found to have Asystolic Arrest with eventual return of perfusing cardiac rhythm. patient reintubated during code, transferred to ICU, called family and updated 06/28: Patient is spiking fever, started on empiric antibiotic, ordered blood urine and sputum culture. We will reconsult ID. Discussed with patient's son in the evening. Family wants to continue full CODE STATUS. Discussed with critical care attending and RN in length. 06/29: Repeat COVID-19 test is positive. Patient remains on ventilator, continue tube feeding diet. Renal function stable, H&H stable. GI recommendation appreciated -no plan for endoscopy now as there is no active bleeding. 06/30: Renal function improving, patient remains positive for COVID. Tolerating tube feeding, wean off vent as tolerated. Patient remains with poor prognosis 07/05; patient has significant drop in H&H, hemoglobin today is 6.9, heme positive stool, type and cross transfuse 2 units of PRBC GI following, no plans of endoscopy 07/06; status post 2 units PRBC transfusion yesterday, Hb improved to 7.7. Monitor H&H transfuse additional PRBC as needed Remains intubated on vent, wean as tolerated and extubate 07/07; Hb dropped to 7.7-6.8, no new episodes of bleeding, transfuse additional 1 unit PRBC today Closely monitor H&H, worsening renal function, hyperkalemia, calcium chloride Kayexalate, gentle hydration, reconsult nephrology 07/08: Patient not tolerating weaning parameters, if unable to wean may need trach and PEG, patient critically ill poor prognosis 07/09; patient remains intubated, trial of CPAP, will closely monitor wean as tolerated and extubate, History Interval history: 64-year-old female patient is intubated on ventilatory support On weaning parameters, COVID-19 positive, morbidly obese Vital signs reviewed No new events reported by the nursing staff Hospitalist Physical - Physical exam Narrative exam: Patient was seen from a distance due to PPE conservation - Constitutional Vitals: Temp Pulse Resp BP Pulse Ox 97.6 F 79 19 163/74 98 07/09/20 16:00 07/09/20 18:55 07/09/20 18:55 07/09/20 18:55 07/09/20 18:55 General appearance: Present: mild distress, well-nourished, obese (Morbidly obese), other (On high flow oxygen) - EENT ENT: other (Seen from a distance PPE conservation) - Neck Neck: Present: other (Seen from a distance PPE conservation) - Respiratory Respiratory effort: other (PPE conservation) - Cardiovascular Heart Sounds: Present: click (PPE conservation) - Extremities Extremity abnormal: other (PPE conservation) - Abdominal General gastrointestinal: other (Seen from a distance PPE conservation) - Psychiatric Psychiatric: other (PPE conservation) - Neurologic Neurologic: other (PPE conservation) HEART Score - HEART Score Troponin: Troponin T 0.067 ng/mL (0.00-0.029) H 07/01/20 06:01 Results - Labs CBC & Chem 7: 07/08/20 04:14 07/08/20 04:14 Labs: Laboratory Last Values WBC 10.7 K/mm3 (4.5-11.0) 07/08/20 04:14 RBC 3.28 M/mm3 (3.65-5.03) L 07/08/20 04:14 Hgb 9.7 gm/dl (10.1-14.3) L 07/08/20 04:14 Hct 28.9 % (30.3-42.9) L D 07/08/20 04:14 MCV 88 fl (79-97) 07/08/20 04:14 MCH 29 pg (28-32) 07/08/20 04:14 MCHC 34 % (30-34) 07/08/20 04:14 RDW 16.4 % (13.2-15.2) H 07/08/20 04:14 Plt Count 344 K/mm3 (140-440) 07/08/20 04:14 Lymph % (Auto) 10.3 % (13.4-35.0) L 07/08/20 04:14 [place] % (Auto) 10.0 % (0.0-7.3) H 07/08/20 04:14 Eos % (Auto) 2.0 % (0.0-4.3) 07/08/20 04:14 Baso % (Auto) 0.5 % (0.0-1.8) 07/08/20 04:14 Lymph # (Auto) 1.1 K/mm3 (1.2-5.4) L 07/08/20 04:14 [place] # (Auto) 1.1 K/mm3 (0.0-0.8) H 07/08/20 04:14 Eos # (Auto) 0.2 K/mm3 (0.0-0.4) 07/08/20 04:14 Baso # (Auto) 0.1 K/mm3 (0.0-0.1) 07/08/20 04:14 Add Manual Diff Complete 07/07/20 04:15 Total Counted 100 07/07/20 04:15 Seg Neutrophils % 77.2 % (40.0-70.0) H 07/08/20 04:14 Seg Neuts % (Manual) 69.0 % (40.0-70.0) 07/07/20 04:15 Band Neutrophils % 0 % 07/07/20 04:15 Lymphocytes % (Manual) 13.0 % (13.4-35.0) L 07/07/20 04:15 Reactive Lymphs % (Man) 0 % 07/07/20 04:15 Monocytes % (Manual) 11.0 % (0.0-7.3) H 07/07/20 04:15 Eosinophils % (Manual) 2.0 % (0.0-4.3) 07/07/20 04:15 Basophils % (Manual) 1.0 % (0.0-1.8) 07/07/20 04:15 Metamyelocytes % 4.0 % 07/07/20 04:15 Myelocytes % 0 % 07/07/20 04:15 Promyelocytes % 0 % 07/07/20 04:15 Blast Cells % 0 % 07/07/20 04:15 Nucleated RBC % Not Reportable 07/07/20 04:15 Seg Neutrophils # 8.2 K/mm3 (1.8-7.7) H 07/08/20 04:14 Seg Neutrophils # Man 5.5 K/mm3 (1.8-7.7) 07/07/20 04:15 Band Neutrophils # 0.0 K/mm3 07/07/20 04:15 Lymphocytes # (Manual) 1.0 K/mm3 (1.2-5.4) L 07/07/20 04:15 Abs React Lymphs (Man) 0.0 K/mm3 07/07/20 04:15 Monocytes # (Manual) 0.9 K/mm3 (0.0-0.8) H 07/07/20 04:15 Eosinophils # (Manual) 0.2 K/mm3 (0.0-0.4) 07/07/20 04:15 Basophils # (Manual) 0.1 K/mm3 (0.0-0.1) 07/07/20 04:15 Metamyelocytes # 0.3 K/mm3 07/07/20 04:15 Myelocytes # 0.0 K/mm3 07/07/20 04:15 Promyelocytes # 0.0 K/mm3 07/07/20 04:15 Blast Cells # 0.0 K/mm3 07/07/20 04:15 WBC Morphology Not Reportable 07/07/20 04:15 Hypersegmented Neuts Not Reportable 07/07/20 04:15 Hyposegmented Neuts Not Reportable 07/07/20 04:15 Hypogranular Neuts Not Reportable 07/07/20 04:15 Smudge Cells Not Reportable 07/07/20 04:15 Toxic Granulation Not Reportable 07/07/20 04:15 Toxic Vacuolation Not Reportable 07/07/20 04:15 Dohle Bodies Not Reportable 07/07/20 04:15 Pelger-Huet Anomaly Not Reportable 07/07/20 04:15 Sanjuanita Rods Not Reportable 07/07/20 04:15 Platelet Estimate Consistent w auto 07/07/20 04:15 Clumped Platelets Not Reportable 07/07/20 04:15 Plt Clumps, EDTA Not Reportable 07/07/20 04:15 Large Platelets Not Reportable 07/07/20 04:15 Giant Platelets Not Reportable 07/07/20 04:15 Platelet Satelliting Not Reportable 07/07/20 04:15 Plt Morphology Comment Not Reportable 07/07/20 04:15 RBC Morphology Not Reportable 07/07/20 04:15 Dimorphic RBCs Not Reportable 07/07/20 04:15 Polychromasia Not Reportable 07/07/20 04:15 Hypochromasia Not Reportable 07/07/20 04:15 Poikilocytosis Not Reportable 07/07/20 04:15 Anisocytosis Few 07/07/20 04:15 Microcytosis Not Reportable 07/07/20 04:15 Macrocytosis Not Reportable 07/07/20 04:15 Spherocytes Rare 07/07/20 04:15 Pappenheimer Bodies Not Reportable 07/07/20 04:15 Sickle Cells Not Reportable 07/07/20 04:15 Target Cells Not Reportable 07/07/20 04:15 Tear Drop Cells Not Reportable 07/07/20 04:15 Ovalocytes Few 07/07/20 04:15 Helmet Cells Not Reportable 07/07/20 04:15 [place] Bodies Not Reportable 07/07/20 04:15 Ione Rings Not Reportable 07/07/20 04:15 [place] Cells Rare 07/07/20 04:15 Bite Cells Not Reportable 07/07/20 04:15 Crenated Cell Not Reportable 07/07/20 04:15 Elliptocytes Not Reportable 07/07/20 04:15 Acanthocytes (Spur) Rare 07/07/20 04:15 Rouleaux Not Reportable 07/07/20 04:15 Hemoglobin C Crystals Not Reportable 07/07/20 04:15 Schistocytes Not Reportable 07/07/20 04:15 Malaria parasites Not Reportable 07/07/20 04:15 Kev Bodies Not Reportable 07/07/20 04:15 Hem Pathologist Commnt No 07/07/20 04:15 PT 14.2 Sec. (12.2-14.9) 05/29/20 15:10 INR 1.08 (0.87-1.13) 05/29/20 15:10 APTT 27.2 Sec. (24.2-36.6) 05/29/20 15:10 D-Dimer 2310.15 ng/mlDDU (0-234) H 06/29/20 14:45 Heparin Anti-Xa Level 0.34 U.I./ml (0.3-0.7) 06/19/20 10:46 ABG pH 7.32 pH Units (7.350-7.450) L 07/05/20 13:05 POC ABG pCO2 35.8 mmHg (32.0-48.0) 07/01/20 05:02 ABG pCO2 47.0 mm Hg 07/05/20 13:05 ABG Oxyhemoglobin 92.6 (94-98) L 06/23/20 12:34 POC ABG pO2 90.8 mmHg (83-108) 07/01/20 05:02 ABG pO2 78.3 mm Hg (80.0-90.0) L 07/05/20 13:05 POC ABG HCO3 22.1 07/01/20 05:02 ABG HCO3 23.4 mmol/L (20.0-26.0) 07/05/20 13:05 ABG O2 Saturation 96.1 % (95.0-99.0) 07/05/20 13:05 ABG O2 Content 0.3 (0.0-44) 07/05/20 13:05 POC ABG Base Excess -2.3 07/01/20 05:02 ABG Base Excess -2.6 mmol/L (-2.0-3.0) L 07/05/20 13:05 ABG Hemoglobin 7.3 gm/dl (12.0-16.0) L 07/05/20 13:05 ABG Carboxyhemoglobin 1.7 % (0.0-5.0) 07/05/20 13:05 ABG Methemoglobin 0.2 % (0.0-1.5) 07/05/20 13:05 VBG pH 7.152 (7.320-7.420) L* 05/28/20 13:47 Carboxyhemoglobin 0.5 (0.5-1.5) 06/23/20 12:34 Oxyhemoglobin 97.4 % (95.0-99.0) 07/05/20 13:05 FiO2 30 % 07/05/20 13:05 Sodium 136 mmol/L (137-145) L 07/08/20 04:14 Potassium 4.6 mmol/L (3.6-5.0) 07/08/20 04:14 Chloride 104.3 mmol/L (98-107) 07/08/20 04:14 Carbon Dioxide 22 mmol/L (22-30) 07/08/20 04:14 Anion Gap 14 mmol/L 07/08/20 04:14 BUN 84 mg/dL (7-17) H 07/08/20 04:14 Creatinine 2.8 mg/dL (0.6-1.2) H 07/08/20 04:14 Estimated GFR 17 ml/min 07/08/20 04:14 BUN/Creatinine Ratio 30 % 07/08/20 04:14 Glucose 109 mg/dL (65-100) H 07/08/20 04:14 POC Glucose 119 (70-105) H 07/09/20 17:56 Lactic Acid 0.60 mmol/L (0.7-2.0) L 06/27/20 05:00 Calcium 8.1 mg/dL (8.4-10.2) L 07/08/20 04:14 Ferritin 223.6 ng/mL (10.0-200.0) H 06/29/20 14:45 Total Bilirubin 0.20 mg/dL (0.1-1.2) 06/28/20 09:47 AST 24 units/L (5-40) 06/28/20 09:47 ALT 21 units/L (7-56) 06/28/20 09:47 Alkaline Phosphatase 113 units/L (35-129) 06/28/20 09:47 Magnesium 2.50 mg/dL (1.7-2.3) H 07/08/20 04:14 Lactate Dehydrogenase 367 units/L (91-180) H 06/29/20 14:45 C-Reactive Protein 3.60 mg/dL (0.00-1.30) H 06/29/20 14:45 Total Protein 5.0 g/dL (6.3-8.2) L 06/28/20 09:47 Albumin 2.1 g/dL (3.9-5) L 06/28/20 09:47 Albumin/Globulin Ratio 0.7 % 06/28/20 09:47 Total Creatine Kinase 300 units/L (30-135) H 07/01/20 06:01 CK-MB (CK-2) 2.0 ng/mL (0.0-4.0) 07/01/20 06:01 CK-MB (CK-2) Rel Index 0.6 (0-4) 07/01/20 06:01 Troponin T 0.067 ng/mL (0.00-0.029) H 07/01/20 06:01 Triglycerides 142 mg/dL (2-149) 07/01/20 06:01 Cholesterol 137 mg/dL (50-199) 07/01/20 06:01 LDL Cholesterol Direct 62 mg/dL (50-130) 07/01/20 06:01 HDL Cholesterol 61 mg/dL (40-59) H 07/01/20 06:01 Cholesterol/HDL Ratio 2.24 % 07/01/20 06:01 Procalcitonin 2.45 ng/mL (<0.15) 06/29/20 14:45 Urine Color Yellow (Yellow) 06/06/20 04:00 Urine Turbidity Cloudy (Clear) 06/06/20 04:00 Urine pH 5.0 (5.0-7.0) 06/06/20 04:00 Ur Specific [place] 1.012 (1.003-1.030) 06/06/20 04:00 Urine Protein 100 mg/dl mg/dL (Negative) 06/06/20 04:00 Urine Glucose (UA) 50 mg/dL (Negative) 06/06/20 04:00 Urine Ketones Neg mg/dL (Negative) 06/06/20 04:00 Urine Blood Sm (Negative) 06/06/20 04:00 Urine Nitrite Neg (Negative) 06/06/20 04:00 Urine Bilirubin Neg (Negative) 06/06/20 04:00 Urine Urobilinogen < 2.0 mg/dL (<2.0) 06/06/20 04:00 Ur Leukocyte Esterase Neg (Negative) 06/06/20 04:00 Urine WBC (Auto) 15.0 /HPF (0.0-6.0) H 06/06/20 04:00 Urine RBC (Auto) 23.0 /HPF (0.0-6.0) 06/06/20 04:00 U Epithel Cells (Auto) 8.0 /HPF (0-13.0) 06/06/20 04:00 Urine Bacteria (Auto) 2+ /HPF (Negative) 06/06/20 04:00 Amorphous Crystals 1+ 06/06/20 04:00 Hyaline Casts 16 /LPF 06/06/20 04:00 Urine Mucus 2+ /HPF 06/06/20 04:00 Urine Yeast (Budding) 2+ /HPF 06/03/20 Unknown Urine Creatinine 33.3 mg/dL (0.1-20.0) H 07/06/20 13:20 Urine Sodium 21 mmol/L 07/06/20 13:20 Urine Total Protein 196 mg/dL (5-11.8) H 06/06/20 04:00 Nasal Screen MRSA (PCR) Negative (Negative) 06/29/20 08:30 Coronavirus (PCR) Positive (Negative) A 06/29/20 Unknown Blood Type A POSITIVE 07/05/20 02:30 Antibody Screen Negative 07/05/20 02:30 Crossmatch See Detail 07/05/20 02:30 - Diagnostic Impressions Diagnostic Impressions: Echocardiogram Limited Views 05/29/20 13:52 Transthoracic Echocardiogram Indication: Pulm Embolus BP: 169/76 HR: 85 Conclusions *Limited study for RV size post cardiopulmonar arrest. *RV is only slightly dilated, no significant difference from prior echo 05/13/2020. *Global left ventricular systolic function is at the lower limits of normal. *The estimated ejection fraction is 45-50%. *Mild to moderate concentric left ventricular hypertrophy is observed. *The left and right atria are both mild to moderately dilated. Findings Left Ventricle: The left ventricular chamber size is mildly dilated. Mild to moderate concentric left ventricular hypertrophy is observed. Global left ventricular systolic function is at the lower limits of normal. The estimated ejection fraction is 45-50%. Left Atrium: The left atrium is mild to moderately dilated. Right Ventricle: The right ventricle is slightly dilated. Right Atrium: The right atrium is mild to moderately dilated. Aortic Valve: The aortic valve leaflets are moderately thickened. Mitral Valve: There is mitral annular calcification. The mitral valve leaflets are moderately thickened. Tricuspid Valve: The tricuspid valve leaflets are mildly thickened. Pericardium: A trivial pericardial effusion is visualized. NDUM: 05/29/20 1808 Amended Report Transthoracic Echocardiogram Indication: Pulm Embolus BP: 169/76 HR: 85 Conclusions *Limited study for RV size post cardiopulmonary arrest. *RV is only slightly dilated, no significant difference from prior echo 05/13/2020. *Global left ventricular systolic function is at the lower limits of normal. *The estimated ejection fraction is 45-50%. *Mild to moderate concentric left ventricular hypertrophy is observed. *The left and right atria are both mild to moderately dilated. Findings Left Ventricle: The left ventricular chamber size is mildly dilated. Mild to moderate concentric left ventricular hypertrophy is observed. Global left ventricular systolic function is at the lower limits of normal. The estimated ejection fraction is 45-50%. Left Atrium: The left atrium is mild to moderately dilated. Right Ventricle: The right ventricle is slightly dilated. Right Atrium: The right atrium is mild to moderately dilated. Aortic Valve: The aortic valve leaflets are moderately thickened. Mitral Valve: There is mitral annular calcification. The mitral valve leaflets are moderately thickened. Tricuspid Valve: The tricuspid valve leaflets are mildly thickened. Pericardium: A trivial pericardial effusion is visualized. Helm/IV: Voiding Method Indwelling Catheter IV Catheter Type [Left Wrist] INT / Saline Lock IV Catheter Type [Left Upper Mid-line arm] IV Catheter Type [Right CVL Internal Jugular] IV Catheter Type [Right Hand] INT / Saline Lock IV Catheter Type [Right Wrist] Not found on patient IV Catheter Type [Left Hand] INT / Saline Lock IV Catheter Type [Left INT / Saline Lock Antecubital] IV Catheter Type [Right Peripheral IV Forearm] IV Catheter Type [Left Leg] Intra-osseous Active Medications - Current Medications Current Medications: Generic Name Dose Route Start Last Admin Trade Name Freq PRN Reason Stop Dose Admin Acetaminophen 650 mg 06/09/20 10:57 06/29/20 21:18 Tylenol FEEDTUBE 650 mg Q6H PRN Administration Fever >101 Amlodipine Besylate 10 mg 06/02/20 11:00 07/09/20 09:50 Amlodipine PO 10 mg DAILY NELSON Administration Lipase/Protease/Amylase 1 each 05/29/20 13:39 07/07/20 10:[address] 10,500 Unit FEEDTUBE 1 each PRN PRN Administration For Clogged Feeding Tube Carvedilol 12.5 mg 06/03/20 10:00 07/09/20 09:51 Coreg PO 12.5 mg BID NELSON Administration Clonidine HCl 0.2 mg 06/23/20 22:00 07/09/20 09:50 Catapres PO 0.2 mg Q12HR NELSON Administration Glycopyrrolate 2 mg 06/09/20 14:00 07/09/20 13:30 Glycopyrrolate PO 2 mg TID NELSON Administration Heparin Sodium (Porcine) 5,000 unit 06/30/20 14:00 07/09/20 13:30 Heparin SUB-Q 5,000 unit Q8HR NELSON Administration Hydralazine HCl 75 mg 07/08/20 10:00 07/09/20 13:30 Apresoline PO 75 mg Q8HR NELSON Administration Hydrophilic Ointment 1 applic 05/28/20 13:49 Vaseline Lip Therapy TP Q2HR PRN Dry Lips Vasopressin 20 unit/ Sodium 101 mls @ 9.09 mls/hr 06/26/20 19:00 06/26/20 19:30 Chloride IV 0 units/min TITR NELSON 0 mls/hr Titration Protocol 0.03 UNITS/MIN Norepinephrine 4 mg in 250 mls @ 7.5 mls/hr 06/26/20 19:00 06/26/20 20:06 Levophed Drip 4 Mg/Ns 250 Ml IV 0 mcg/min TITR NELSON 0 mls/hr Titration Protocol 2 MCG/MIN Phenylephrine HCl 100 mg/ 100 mls @ 3 mls/hr 06/26/20 18:15 Sodium Chloride IV TITR NELSON Protocol 50 MCG/MIN Sodium Chloride 500 mls @ 5 mls/hr 06/30/20 22:00 06/30/20 21:42 Nacl 0.9% 500 Ml IV 5 mls/hr DIRECT NELSON Administration Insulin Glargine 10 units 06/08/20 22:00 07/08/20 23:49 Lantus SUB-Q 10 units QHS NELSON Administration Insulin Human Lispro 0 unit 05/29/20 18:00 07/09/20 18:58 Humalog SUB-Q Not Given Q6H [facility] Protocol Labetalol HCl 20 mg 06/03/20 09:00 07/07/20 15:37 Labetalol IV 20 mg Q4H PRN Administration HYPERTENSION Lansoprazole 30 mg 06/05/20 22:00 07/09/20 09:51 Prevacid Solutab FEEDTUBE 30 mg BID NELSON Administration Levetiracetam 500 mg 06/16/20 11:00 07/09/20 09:50 Keppra PO 500 mg BID NELSON Administration Lidocaine HCl 15 ml 06/26/20 20:00 07/09/20 13:30 Magic Mouthwash PO 15 ml TID NELSON Administration Modafinil 100 mg 07/02/20 20:00 07/09/20 09:51 Provigil PO 100 mg DAILY NELSON Administration Multi-Ingred Cream/Lotion/Oil/Oint 1 applic 05/28/20 13:49 Artificial Tears Ophth Oint OU Q4HR PRN Dry Eye(s) Ondansetron HCl 4 mg 06/02/20 09:00 06/09/20 16:48 Zofran IV 4 mg Q8H PRN Administration Nausea And Vomiting Senna 17.6 mg 06/03/20 10:00 07/09/20 09:52 Senokot FEEDTUBE Not Given BID NELSON Simple Syrup 15 ml 05/29/20 13:39 Simple Syrup FEEDTUBE PRN PRN Hypoglycemia Simple Syrup 30 ml 05/29/20 13:39 Simple Syrup FEEDTUBE PRN PRN Hypoglycemia Sodium Bicarbonate 325 mg 05/29/20 13:39 07/07/20 10:36 Sodium Bicarbonate FEEDTUBE 325 mg PRN PRN Administration For Clogged Feeding Tube Sodium Chloride 10 ml 05/28/20 22:00 07/09/20 09:52 Sodium Chloride Flush Syringe 10 Ml IV 10 ml BID NELSON Administration Sodium Chloride 10 ml 05/28/20 19:08 06/16/20 17:50 Sodium Chloride Flush Syringe 10 Ml IV 10 ml PRN PRN Administration LINE FLUSH Nutrition/Malnutrition Assess - Dietary Evaluation Nutrition/Malnutrition Findings: Nutrition Notes Start: 05/29/20 11:45 Freq: Status: Active Protocol: Document 07/09/20 11:47 [email or web address] (Rec: 07/09/20 11:53 [email or web address]) Co-Sign 07/09/20 11:47 Nutrition Notes Initial or Follow up Reassessment Current Diagnosis Acute Kidney Injury,Diabetes, Heart Failure,Respiratory Failure Other Pertinent Diagnosis COVID-19 (+), Pulmonary edema, dysphagia Current Diet Glucerna 1.2 at 55ml/hr Labs/Tests Na 136 BUN 84 Cr 2.8 BG 109 Mg 2.5 Pertinent Medications Reviewed Height 5 ft 6 in Weight 123 kg [place] Body Weight (kg) 59.09 BMI 43.7 Weight Status Morbidly Obese Subjective/Other Information F/U TF tolerance. Per RN, pt tolerating TF and running at goal rate. Percent of energy/protein needs met: 99%/53% Burn Absent Trauma Absent Current % PO Negligible Minimum of two criteria No physical signs of malnutrition Fluid Accumulation Mild (non-severe) #1 Nutrition Diagnosis Inadequate oral intake Diagnosis Progress(for reassessment Continues documentation) Is patient on ventilator? Yes Is Patient Ambulatory and/or Out of Bed No REE-([facility]-confined to bed) 2172.576 Kcal/Kg value to use for calculation 13 Approximate Energy Requirements Using 1599 kcal/Kg Calculation Used for Recommendations Kcal/kg Additional Notes Protein needs up to 148g (up to 2.5g/kg IBW) Fluid needs 1ml/kcal Nutrition Intervention Change Diet Order: Change TF Nutrition Support: Nepro at 40ml/hr Flush 150ml q4h Kcal 1,728 Protein (gm) 78 Fluid (mL) 697 Goal #1 TF tolerance Goal #2 TF to meet at least 65%-70% energy and 80% protein needs Anticipated Discharge Needs: Unable to determine at this time Follow-Up By: 07/20/20 Additional Comments F/U for TF tolerance
[2020-07-09] MEDS: INSULIN GLARGINE 100 UNITS/ML SUB-Q SCH (23:57)
[2020-07-10] MEDS: SENNOSIDES ORAL LIQD 8.8 MG/5 ML ORAL LIQD FEEDTUBE SCH ×3 (00:02→22:00)
[2020-07-10] MEDS: LANSOPRAZOLE 30 MG SOLUTAB FEEDTUBE SCH ×3 (00:05→21:50)
[2020-07-10] MEDS: levETIRAcetam 500 MG/5 ML ORAL LIQD PO SCH ×3 (00:06→21:50)
[2020-07-10] MEDS: HEPARIN 5,000 UNIT/1 ML VIAL SUB-Q SCH ×4 (00:14→21:54)
[2020-07-10] MEDS: INSULIN LISPRO 100 UNIT/ML VIAL 3 mL SUB-Q SCH ×4 (00:15→19:06)
[2020-07-10] MEDS: hydrALAZINE 25 MG TAB PO SCH ×3 (06:28→21:52)
[2020-07-10] MEDS: GLYCOPYRROLATE 2 MG TAB PO SCH ×3 (08:20→21:49)
[2020-07-10] MEDS: MAGIC MOUTHWASH 30ML PO SCH (08:20)
--- NOTE | 2020-07-10 08:57 | Progress Note ---
Assessment and Plan Assessment and plan: -- Acute hypoxemic respiratory failure intubated on admission, extubated on 06/12/20 then placed on high flow o2 patient developed another respiratory arrest on 06/26 - reintubated Patient not tolerating weaning parameters CC following, may need trach and PEG if unable to wean --Hyperkalemia; resolved Monitor electrolytes -- Hypertension; uncontrolled Increase hydralazine dose to 75 mg 3 times a day Continue amlodipine, coreg, clonidine and hydralazine --Worsening renal function; creatinine 2.4-2.5-2.9 Vasomotor nephropathy, gentle hydration Avoid nephrotoxins, monitor renal function Reconsult nephrology --Rectal bleeding; Hb dropped from 8.2 -6.9-7.7-6.8 today, Transfused 1 unit PRBC Closely monitor H&H, GI following, no plans of endoscopy --Acute blood loss anemia; Received 2 units of PRBC transfusion, Hb improved from 6.9-7.7-6.8 Patient received 2 units of PRBC in the past, transfuse 1 additional unit today Closely monitor H&H -- s/p cardiac arrest 07/01/2020,s/p CPR per ACLS protocol, refer to code sheet Intubated on vent, full CODE STATUS s/p Cardiac arrest on admission and on 06/26 Cardiology team on board Conservative management as per cardiology --Febrile illness with sepsis persistently positive for COVID-19 and Klebsiella pneumoniae Continue empiric antibiotics - Continue cefepime 2 g IV every 8 hours for now, ID following, completed treatment for COVID-19 --COVID-19 positive since 05/28/2020 Completed treatment, ID following Repeat test 06/29 still positive --Superficial left cephalic vein DVT/elevated D-dimers[COVID 19] Patient is on heparin drip from 05/29/20 D-dimers improved [id number] s/p heparin drip, Discussed with ID, treated with Eliquis 5 mg twice a day for 1 week[per ID] stop date 06/26/2020 -- Acute metabolic encephalopathy, POA likely from sepsis and s/p cardiac arrest with possible anoxic injury -- Acute renal failure: likely ATN Resolved, avoid nephrotoxins --COVID-19 b/l PNA Completed remdesivir on 06/02 Completed dexamethasone - Last dose 06/07 ID recs appreciated. --Klebsiella pneumonia: Initially completed antibiotics with cefepime Repeat sputum culture still positive for Klebsiella, restarted antibiotic Completed second round of 5 days of cefepime on 07/04/2020 --CHF (congestive heart failure) Cardiology following. Ef 45% -- Coffee ground emesis -Stress ulcers Possible stress ulcers, On PPI H/H again dropped - transfuse GI evaluated --Mild LFT elevation: likely from COVID-19. cont to monitor -- DVT prophylaxis Eliquis, SCD to bilateral lower extremities while in bed -- Advance care planning Patient is critically ill with multiple medical problems Poor prognosis, family updated and requesting full code The high probability of a clinically significant, sudden or life threatening deterioration of the [CVS, renal, respiratory, RIP TAILER] system(s) required my full and direct attention, intervention and personal management. The aggregate critical care time was [33] minutes. This time is in addition to time spent performing reported procedures but includes the following: [x] Data Review and interpretation [x] Patient assessment and monitoring of vital signs [x] Documentation [x] Medication orders and management 06/27; Code blue called yesterday. ACLS initiated, Pt found to have Asystolic Arrest with eventual return of perfusing cardiac rhythm. patient reintubated during code, transferred to ICU, called family and updated 06/28: Patient is spiking fever, started on empiric antibiotic, ordered blood urine and sputum culture. We will reconsult ID. Discussed with patient's son in the evening. Family wants to continue full CODE STATUS. Discussed with critical care attending and RN in length. 06/29: Repeat COVID-19 test is positive. Patient remains on ventilator, continue tube feeding diet. Renal function stable, H&H stable. GI recommendation appreciated -no plan for endoscopy now as there is no active bleeding. 06/30: Renal function improving, patient remains positive for COVID. Tolerating tube feeding, wean off vent as tolerated. Patient remains with poor prognosis 07/05; patient has significant drop in H&H, hemoglobin today is 6.9, heme positive stool, type and cross transfuse 2 units of PRBC GI following, no plans of endoscopy 07/06; status post 2 units PRBC transfusion yesterday, Hb improved to 7.7. Monitor H&H transfuse additional PRBC as needed Remains intubated on vent, wean as tolerated and extubate 07/07; Hb dropped to 7.7-6.8, no new episodes of bleeding, transfuse additional 1 unit PRBC today Closely monitor H&H, worsening renal function, hyperkalemia, calcium chloride Kayexalate, gentle hydration, reconsult nephrology 07/08: Patient not tolerating weaning parameters, if unable to wean may need trach and PEG, patient critically ill poor prognosis 07/09; patient remains intubated, trial of CPAP, will closely monitor wean as tolerated and extubate, 07/10: Remains intubated, wean as tolerated and extubate, if unable to wean may need trach and PEG History Interval history: COVID positive patient Isolation precautions and PPE protocols strictly followed I have seen and examined the patient at the bedside Patient remains orally intubated on ventilatory support Not able to tolerate weaning parameters Afebrile, vital signs reviewed Hospitalist Physical - Constitutional Vitals: Temp Pulse Resp BP Pulse Ox 98.9 F 79 15 153/57 99 07/10/20 03:28 07/10/20 07:41 07/10/20 07:41 07/10/20 07:41 07/10/20 07:41 General appearance: Present: mild distress, well-nourished, obese (Morbidly obese), other (Intubated on ventilatory support) - Neck Neck: Present: supple, other (ET tube and Dobbhoff in place) - Respiratory Respiratory effort: normal Respiratory: bilateral: diminished, rhonchi, negative: rales, wheezing - Cardiovascular Rhythm: regular Heart Sounds: Present: S1 & S2 - Extremities Extremities: no ischemia Extremity abnormal: edema - Abdominal General gastrointestinal: soft, non-tender, non-distended, normal bowel sounds - Integumentary Integumentary: Present: clear, warm - Psychiatric Psychiatric: other (On vent unresponsive) - Neurologic Neurologic: other (On vent noncommunicative) HEART Score - HEART Score Troponin: Troponin T 0.067 ng/mL (0.00-0.029) H 07/01/20 06:01 Results - Labs CBC & Chem 7: 07/12/20 05:14 07/12/20 05:14 Labs: Laboratory Last Values WBC 10.7 K/mm3 (4.5-11.0) 07/08/20 04:14 RBC 3.28 M/mm3 (3.65-5.03) L 07/08/20 04:14 Hgb 9.7 gm/dl (10.1-14.3) L 07/08/20 04:14 Hct 28.9 % (30.3-42.9) L D 07/08/20 04:14 MCV 88 fl (79-97) 07/08/20 04:14 MCH 29 pg (28-32) 07/08/20 04:14 MCHC 34 % (30-34) 07/08/20 04:14 RDW 16.4 % (13.2-15.2) H 07/08/20 04:14 Plt Count 344 K/mm3 (140-440) 07/08/20 04:14 Lymph % (Auto) 10.3 % (13.4-35.0) L 07/08/20 04:14 Ev[place]eline % (Auto) 10.0 % (0.0-7.3) H 07/08/20 04:14 Eos % (Auto) 2.0 % (0.0-4.3) 07/08/20 04:14 Baso % (Auto) 0.5 % (0.0-1.8) 07/08/20 04:14 Lymph # (Auto) 1.1 K/mm3 (1.2-5.4) L 07/08/20 04:14 [place] # (Auto) 1.1 K/mm3 (0.0-0.8) H 07/08/20 04:14 Eos # (Auto) 0.2 K/mm3 (0.0-0.4) 07/08/20 04:14 Baso # (Auto) 0.1 K/mm3 (0.0-0.1) 07/08/20 04:14 Add Manual Diff Complete 07/07/20 04:15 Total Counted 100 07/07/20 04:15 Seg Neutrophils % 77.2 % (40.0-70.0) H 07/08/20 04:14 Seg Neuts % (Manual) 69.0 % (40.0-70.0) 07/07/20 04:15 Band Neutrophils % 0 % 07/07/20 04:15 Lymphocytes % (Manual) 13.0 % (13.4-35.0) L 07/07/20 04:15 Reactive Lymphs % (Man) 0 % 07/07/20 04:15 Monocytes % (Manual) 11.0 % (0.0-7.3) H 07/07/20 04:15 Eosinophils % (Manual) 2.0 % (0.0-4.3) 07/07/20 04:15 Basophils % (Manual) 1.0 % (0.0-1.8) 07/07/20 04:15 Metamyelocytes % 4.0 % 07/07/20 04:15 Myelocytes % 0 % 07/07/20 04:15 Promyelocytes % 0 % 07/07/20 04:15 Blast Cells % 0 % 07/07/20 04:15 Nucleated RBC % Not Reportable 07/07/20 04:15 Seg Neutrophils # 8.2 K/mm3 (1.8-7.7) H 07/08/20 04:14 Seg Neutrophils # Man 5.5 K/mm3 (1.8-7.7) 07/07/20 04:15 Band Neutrophils # 0.0 K/mm3 07/07/20 04:15 Lymphocytes # (Manual) 1.0 K/mm3 (1.2-5.4) L 07/07/20 04:15 Abs React Lymphs (Man) 0.0 K/mm3 07/07/20 04:15 Monocytes # (Manual) 0.9 K/mm3 (0.0-0.8) H 07/07/20 04:15 Eosinophils # (Manual) 0.2 K/mm3 (0.0-0.4) 07/07/20 04:15 Basophils # (Manual) 0.1 K/mm3 (0.0-0.1) 07/07/20 04:15 Metamyelocytes # 0.3 K/mm3 07/07/20 04:15 Myelocytes # 0.0 K/mm3 07/07/20 04:15 Promyelocytes # 0.0 K/mm3 07/07/20 04:15 Blast Cells # 0.0 K/mm3 07/07/20 04:15 WBC Morphology Not Reportable 07/07/20 04:15 Hypersegmented Neuts Not Reportable 07/07/20 04:15 Hyposegmented Neuts Not Reportable 07/07/20 04:15 Hypogranular Neuts Not Reportable 07/07/20 04:15 Smudge Cells Not Reportable 07/07/20 04:15 Toxic Granulation Not Reportable 07/07/20 04:15 Toxic Vacuolation Not Reportable 07/07/20 04:15 Dohle Bodies Not Reportable 07/07/20 04:15 Pelger-Huet Anomaly Not Reportable 07/07/20 04:15 Sanjuanita Rods Not Reportable 07/07/20 04:15 Platelet Estimate Consistent w auto 07/07/20 04:15 Clumped Platelets Not Reportable 07/07/20 04:15 Plt Clumps, EDTA Not Reportable 07/07/20 04:15 Large Platelets Not Reportable 07/07/20 04:15 Giant Platelets Not Reportable 07/07/20 04:15 Platelet Satelliting Not Reportable 07/07/20 04:15 Plt Morphology Comment Not Reportable 07/07/20 04:15 RBC Morphology Not Reportable 07/07/20 04:15 Dimorphic RBCs Not Reportable 07/07/20 04:15 Polychromasia Not Reportable 07/07/20 04:15 Hypochromasia Not Reportable 07/07/20 04:15 Poikilocytosis Not Reportable 07/07/20 04:15 Anisocytosis Few 07/07/20 04:15 Microcytosis Not Reportable 07/07/20 04:15 Macrocytosis Not Reportable 07/07/20 04:15 Spherocytes Rare 07/07/20 04:15 Pappenheimer Bodies Not Reportable 07/07/20 04:15 Sickle Cells Not Reportable 07/07/20 04:15 Target Cells Not Reportable 07/07/20 04:15 Tear Drop Cells Not Reportable 07/07/20 04:15 Ovalocytes Few 07/07/20 04:15 Helmet Cells Not Reportable 07/07/20 04:15 [place] Bodies Not Reportable 07/07/20 04:15 Clifton Rings Not Reportable 07/07/20 04:15 Shidler Cells Rare 07/07/20 04:15 Bite Cells Not Reportable 07/07/20 04:15 Crenated Cell Not Reportable 07/07/20 04:15 Elliptocytes Not Reportable 07/07/20 04:15 Acanthocytes (Spur) Rare 07/07/20 04:15 Rouleaux Not Reportable 07/07/20 04:15 Hemoglobin C Crystals Not Reportable 07/07/20 04:15 Schistocytes Not Reportable 07/07/20 04:15 Malaria parasites Not Reportable 07/07/20 04:15 Kev Bodies Not Reportable 07/07/20 04:15 Hem Pathologist Commnt No 07/07/20 04:15 PT 14.2 Sec. (12.2-14.9) 05/29/20 15:10 INR 1.08 (0.87-1.13) 05/29/20 15:10 APTT 27.2 Sec. (24.2-36.6) 05/29/20 15:10 D-Dimer 2310.15 ng/mlDDU (0-234) H 06/29/20 14:45 Heparin Anti-Xa Level 0.34 U.I./ml (0.3-0.7) 06/19/20 10:46 ABG pH 7.32 pH Units (7.350-7.450) L 07/05/20 13:05 POC ABG pCO2 35.8 mmHg (32.0-48.0) 07/01/20 05:02 ABG pCO2 47.0 mm Hg 07/05/20 13:05 ABG Oxyhemoglobin 92.6 (94-98) L 06/23/20 12:34 POC ABG pO2 90.8 mmHg (83-108) 07/01/20 05:02 ABG pO2 78.3 mm Hg (80.0-90.0) L 07/05/20 13:05 POC ABG HCO3 22.1 07/01/20 05:02 ABG HCO3 23.4 mmol/L (20.0-26.0) 07/05/20 13:05 ABG O2 Saturation 96.1 % (95.0-99.0) 07/05/20 13:05 ABG O2 Content 0.3 (0.0-44) 07/05/20 13:05 POC ABG Base Excess -2.3 07/01/20 05:02 ABG Base Excess -2.6 mmol/L (-2.0-3.0) L 07/05/20 13:05 ABG Hemoglobin 7.3 gm/dl (12.0-16.0) L 07/05/20 13:05 ABG Carboxyhemoglobin 1.7 % (0.0-5.0) 07/05/20 13:05 ABG Methemoglobin 0.2 % (0.0-1.5) 07/05/20 13:05 VBG pH 7.152 (7.320-7.420) L* 05/28/20 13:47 Carboxyhemoglobin 0.5 (0.5-1.5) 06/23/20 12:34 Oxyhemoglobin 97.4 % (95.0-99.0) 07/05/20 13:05 FiO2 30 % 07/05/20 13:05 Sodium 136 mmol/L (137-145) L 07/08/20 04:14 Potassium 4.6 mmol/L (3.6-5.0) 07/08/20 04:14 Chloride 104.3 mmol/L (98-107) 07/08/20 04:14 Carbon Dioxide 22 mmol/L (22-30) 07/08/20 04:14 Anion Gap 14 mmol/L 07/08/20 04:14 BUN 84 mg/dL (7-17) H 07/08/20 04:14 Creatinine 2.8 mg/dL (0.6-1.2) H 07/08/20 04:14 Estimated GFR 17 ml/min 07/08/20 04:14 BUN/Creatinine Ratio 30 % 07/08/20 04:14 Glucose 109 mg/dL (65-100) H 07/08/20 04:14 POC Glucose 124 (70-105) H 07/10/20 05:50 Lactic Acid 0.60 mmol/L (0.7-2.0) L 06/27/20 05:00 Calcium 8.1 mg/dL (8.4-10.2) L 07/08/20 04:14 Ferritin 223.6 ng/mL (10.0-200.0) H 06/29/20 14:45 Total Bilirubin 0.20 mg/dL (0.1-1.2) 06/28/20 09:47 AST 24 units/L (5-40) 06/28/20 09:47 ALT 21 units/L (7-56) 06/28/20 09:47 Alkaline Phosphatase 113 units/L (35-129) 06/28/20 09:47 Magnesium 2.50 mg/dL (1.7-2.3) H 07/08/20 04:14 Lactate Dehydrogenase 367 units/L (91-180) H 06/29/20 14:45 C-Reactive Protein 3.60 mg/dL (0.00-1.30) H 06/29/20 14:45 Total Protein 5.0 g/dL (6.3-8.2) L 06/28/20 09:47 Albumin 2.1 g/dL (3.9-5) L 06/28/20 09:47 Albumin/Globulin Ratio 0.7 % 06/28/20 09:47 Total Creatine Kinase 300 units/L (30-135) H 07/01/20 06:01 CK-MB (CK-2) 2.0 ng/mL (0.0-4.0) 07/01/20 06:01 CK-MB (CK-2) Rel Index 0.6 (0-4) 07/01/20 06:01 Troponin T 0.067 ng/mL (0.00-0.029) H 07/01/20 06:01 Triglycerides 142 mg/dL (2-149) 07/01/20 06:01 Cholesterol 137 mg/dL (50-199) 07/01/20 06:01 LDL Cholesterol Direct 62 mg/dL (50-130) 07/01/20 06:01 HDL Cholesterol 61 mg/dL (40-59) H 07/01/20 06:01 Cholesterol/HDL Ratio 2.24 % 07/01/20 06:01 Procalcitonin 2.45 ng/mL (<0.15) 06/29/20 14:45 Urine Color Yellow (Yellow) 06/06/20 04:00 Urine Turbidity Cloudy (Clear) 06/06/20 04:00 Urine pH 5.0 (5.0-7.0) 06/06/20 04:00 Ur Specific [place] 1.012 (1.003-1.030) 06/06/20 04:00 Urine Protein 100 mg/dl mg/dL (Negative) 06/06/20 04:00 Urine Glucose (UA) 50 mg/dL (Negative) 06/06/20 04:00 Urine Ketones Neg mg/dL (Negative) 06/06/20 04:00 Urine Blood Sm (Negative) 06/06/20 04:00 Urine Nitrite Neg (Negative) 06/06/20 04:00 Urine Bilirubin Neg (Negative) 06/06/20 04:00 Urine Urobilinogen < 2.0 mg/dL (<2.0) 06/06/20 04:00 Ur Leukocyte Esterase Neg (Negative) 06/06/20 04:00 Urine WBC (Auto) 15.0 /HPF (0.0-6.0) H 06/06/20 04:00 Urine RBC (Auto) 23.0 /HPF (0.0-6.0) 06/06/20 04:00 U Epithel Cells (Auto) 8.0 /HPF (0-13.0) 06/06/20 04:00 Urine Bacteria (Auto) 2+ /HPF (Negative) 06/06/20 04:00 Amorphous Crystals 1+ 06/06/20 04:00 Hyaline Casts 16 /LPF 06/06/20 04:00 Urine Mucus 2+ /HPF 06/06/20 04:00 Urine Yeast (Budding) 2+ /HPF 06/03/20 Unknown Urine Creatinine 33.3 mg/dL (0.1-20.0) H 07/06/20 13:20 Urine Sodium 21 mmol/L 07/06/20 13:20 Urine Total Protein 196 mg/dL (5-11.8) H 06/06/20 04:00 Nasal Screen MRSA (PCR) Negative (Negative) 06/29/20 08:30 Coronavirus (PCR) Positive (Negative) A 06/29/20 Unknown Blood Type A POSITIVE 07/05/20 02:30 Antibody Screen Negative 07/05/20 02:30 Crossmatch See Detail 07/05/20 02:30 - Diagnostic Impressions Diagnostic Impressions: Echocardiogram Limited Views 05/29/20 13:52 Transthoracic Echocardiogram Indication: Pulm Embolus BP: 169/76 HR: 85 Conclusions *Limited study for RV size post cardiopulmonar arrest. *RV is only slightly dilated, no significant difference from prior echo 05/13/2020. *Global left ventricular systolic function is at the lower limits of normal. *The estimated ejection fraction is 45-50%. *Mild to moderate concentric left ventricular hypertrophy is observed. *The left and right atria are both mild to moderately dilated. Findings Left Ventricle: The left ventricular chamber size is mildly dilated. Mild to moderate concentric left ventricular hypertrophy is observed. Global left ventricular systolic function is at the lower limits of normal. The estimated ejection fraction is 45-50%. Left Atrium: The left atrium is mild to moderately dilated. Right Ventricle: The right ventricle is slightly dilated. Right Atrium: The right atrium is mild to moderately dilated. Aortic Valve: The aortic valve leaflets are moderately thickened. Mitral Valve: There is mitral annular calcification. The mitral valve leaflets are moderately thickened. Tricuspid Valve: The tricuspid valve leaflets are mildly thickened. Pericardium: A trivial pericardial effusion is visualized. NDUM: 05/29/20 1808 Amended Report Transthoracic Echocardiogram Indication: Pulm Embolus BP: 169/76 HR: 85 Conclusions *Limited study for RV size post cardiopulmonary arrest. *RV is only slightly dilated, no significant difference from prior echo 05/13/2020. *Global left ventricular systolic function is at the lower limits of normal. *The estimated ejection fraction is 45-50%. *Mild to moderate concentric left ventricular hypertrophy is observed. *The left and right atria are both mild to moderately dilated. Findings Left Ventricle: The left ventricular chamber size is mildly dilated. Mild to moderate concentric left ventricular hypertrophy is observed. Global left ventricular systolic function is at the lower limits of normal. The estimated ejection fraction is 45-50%. Left Atrium: The left atrium is mild to moderately dilated. Right Ventricle: The right ventricle is slightly dilated. Right Atrium: The right atrium is mild to moderately dilated. Aortic Valve: The aortic valve leaflets are moderately thickened. Mitral Valve: There is mitral annular calcification. The mitral valve leaflets are moderately thickened. Tricuspid Valve: The tricuspid valve leaflets are mildly thickened. Pericardium: A trivial pericardial effusion is visualized. Helm/IV: Voiding Method Indwelling Catheter IV Catheter Type [Left Wrist] INT / Saline Lock IV Catheter Type [Left Upper Mid-line arm] IV Catheter Type [Right CVL Internal Jugular] IV Catheter Type [Right Hand] INT / Saline Lock IV Catheter Type [Right Wrist] Not found on patient IV Catheter Type [Left Hand] INT / Saline Lock IV Catheter Type [Left INT / Saline Lock Antecubital] IV Catheter Type [Right Peripheral IV Forearm] IV Catheter Type [Left Leg] Intra-osseous Active Medications - Current Medications Current Medications: Generic Name Dose Route Start Last Admin Trade Name Freq PRN Reason Stop Dose Admin Acetaminophen 650 mg 06/09/20 10:57 06/29/20 21:18 Tylenol FEEDTUBE 650 mg Q6H PRN Administration Fever >101 Amlodipine Besylate 10 mg 06/02/20 11:00 07/09/20 09:50 Amlodipine PO 10 mg DAILY NELSON Administration Lipase/Protease/Amylase 1 each 05/29/20 13:39 07/07/20 10:[address] 10,500 Unit FEEDTUBE 1 each PRN PRN Administration For Clogged Feeding Tube Carvedilol 12.5 mg 06/03/20 10:00 07/09/20 21:39 Coreg PO 12.5 mg BID NELSON Administration Clonidine HCl 0.2 mg 06/23/20 22:00 07/09/20 22:15 Catapres PO 0.2 mg Q12HR NELSON Administration Glycopyrrolate 2 mg 06/09/20 14:00 07/10/20 08:20 Glycopyrrolate PO 2 mg TID NELSON Administration Heparin Sodium (Porcine) 5,000 unit 06/30/20 14:00 07/10/20 06:27 Heparin SUB-Q 5,000 unit Q8HR NELSON Administration Hydralazine HCl 75 mg 07/08/20 10:00 07/10/20 06:28 Apresoline PO 75 mg Q8HR NELSON Administration Hydrophilic Ointment 1 applic 05/28/20 13:49 Vaseline Lip Therapy TP Q2HR PRN Dry Lips Insulin Glargine 10 units 06/08/20 22:00 07/09/20 23:57 Lantus SUB-Q 10 units QHS NELSON Administration Insulin Human Lispro 0 unit 05/29/20 18:00 07/10/20 06:29 Humalog SUB-Q Not Given Q6H [facility] Protocol Labetalol HCl 20 mg 06/03/20 09:00 07/07/20 15:37 Labetalol IV 20 mg Q4H PRN Administration HYPERTENSION Lansoprazole 30 mg 06/05/20 22:00 07/10/20 00:05 Prevacid Solutab FEEDTUBE 30 mg BID NELSON Administration Levetiracetam 500 mg 06/16/20 11:00 07/10/20 00:06 Keppra PO 500 mg BID NELSON Administration Modafinil 100 mg 07/02/20 20:00 07/09/20 09:51 Provigil PO 100 mg DAILY NELSON Administration Multi-Ingred Cream/Lotion/Oil/Oint 1 applic 05/28/20 13:49 Artificial Tears Ophth Oint OU Q4HR PRN Dry Eye(s) Ondansetron HCl 4 mg 06/02/20 09:00 06/09/20 16:48 Zofran IV 4 mg Q8H PRN Administration Nausea And Vomiting Senna 17.6 mg 06/03/20 10:00 07/10/20 00:02 Senokot FEEDTUBE 17.6 mg BID NELSON Administration Simple Syrup 15 ml 05/29/20 13:39 Simple Syrup FEEDTUBE PRN PRN Hypoglycemia Simple Syrup 30 ml 05/29/20 13:39 Simple Syrup FEEDTUBE PRN PRN Hypoglycemia Sodium Bicarbonate 325 mg 05/29/20 13:39 07/07/20 10:36 Sodium Bicarbonate FEEDTUBE 325 mg PRN PRN Administration For Clogged Feeding Tube Sodium Chloride 10 ml 05/28/20 22:00 07/10/20 00:16 Sodium Chloride Flush Syringe 10 Ml IV 10 ml BID NELSON Administration Sodium Chloride 10 ml 05/28/20 19:08 06/16/20 17:50 Sodium Chloride Flush Syringe 10 Ml IV 10 ml PRN PRN Administration LINE FLUSH Nutrition/Malnutrition Assess - Dietary Evaluation Nutrition/Malnutrition Findings: Nutrition Notes Start: 05/29/20 11:45 Freq: Status: Active Protocol: Document 07/09/20 11:47 [email or web address] (Rec: 07/09/20 11:53 [email or web address]) Co-Sign 07/09/20 11:47 Nutrition Notes Initial or Follow up Reassessment Current Diagnosis Acute Kidney Injury,Diabetes, Heart Failure,Respiratory Failure Other Pertinent Diagnosis COVID-19 (+), Pulmonary edema, dysphagia Current Diet Glucerna 1.2 at 55ml/hr Labs/Tests Na 136 BUN 84 Cr 2.8 BG 109 Mg 2.5 Pertinent Medications Reviewed Height 5 ft 6 in Weight 123 kg [place] Body Weight (kg) 59.09 BMI 43.7 Weight Status Morbidly Obese Subjective/Other Information F/U TF tolerance. Per RN, pt tolerating TF and running at goal rate. Percent of energy/protein needs met: 99%/53% Burn Absent Trauma Absent Current % PO Negligible Minimum of two criteria No physical signs of malnutrition Fluid Accumulation Mild (non-severe) #1 Nutrition Diagnosis Inadequate oral intake Diagnosis Progress(for reassessment Continues documentation) Is patient on ventilator? Yes Is Patient Ambulatory and/or Out of Bed No REE-([facility]-confined to bed) 2172.576 Kcal/Kg value to use for calculation 13 Approximate Energy Requirements Using 1599 kcal/Kg Calculation Used for Recommendations Kcal/kg Additional Notes Protein needs up to 148g (up to 2.5g/kg IBW) Fluid needs 1ml/kcal Nutrition Intervention Change Diet Order: Change TF Nutrition Support: Nepro at 40ml/hr Flush 150ml q4h Kcal 1,728 Protein (gm) 78 Fluid (mL) 697 Goal #1 TF tolerance Goal #2 TF to meet at least 65%-70% energy and 80% protein needs Anticipated Discharge Needs: Unable to determine at this time Follow-Up By: 07/20/20 Additional Comments F/U for TF tolerance
[2020-07-10] MEDS: cloNIDine 0.2 MG TAB PO SCH ×2 (10:14→21:51)
[2020-07-10] MEDS: amLODIPine 10 MG TAB PO SCH (10:15)
[2020-07-10] MEDS: MODAFINIL 100 MG TAB PO SCH (10:15)
[2020-07-10] MEDS: carvediloL 12.5 MG TAB PO SCH ×2 (10:16→21:49)
--- NOTE | 2020-07-10 10:36 | Progress Note ---
Assessment and Plan Cardiopulmoanry arrest 06/26/2020 with ROSC Acute hypoxemic respiratory failure , extubated now re-intubated Anemia s/p PRBC Severe COVID infection Multifocal pneumonia Morbid obesity Acute toxic metabolic encephalopathy AVANI secondary to COVID/vasomotor nephropathy Bilateral pulmonary edema. Bilateral pleural effusions. History of congestive heart failure. History of pulmonary hypertension. History of hypertension. Diabetes. Obesity hypoventilation syndrome. Oropharyngeal dysphagia. Monitor off antibiotics, completed course. Trend temperature curve and WCC Fluid conservative measures as tolerated by renal function and hemodynamics Daily SBTs as tolerated, her mental staus precludes liberation from MVS If unable to extubate by Monday, plan on trach and PEG Continue to avoid nephrotoxins, closely monitor renal function, dose all medications for renal function Supportive transfusions as indicated - VAP bundle addressed -Aspiration precautions, HOB >40 -lung protective strategies-ARDS. net - continue bronchodilators with pulmonary hygiene per RT - wean per pulmonary driven protocols otherwise - continue to avoid benzodiazepines, reduce the possibility of delirium - prn analgesia per CPOT score - Continue to wean supplemental oxygen for target O2 sats > 92% -Continue to hold sedation, if needed intermittent dosing - conservative fluid management measures as tolerated by hemodynamics and renal function - Bronchodilators with pulmonary hygiene per RT - Accuchecks with glycemic control per SSI (While critically ill target blood glucose of 140-180 mg/dL; avoid hypoglycemia) - Maintenance of sleep-wake cycle, avoid delirium - Aspiration precautions, HOB >40 - Stress ulcer prophylaxis -Famotidine - Mobility protocol, off loading and skin assessment for pressure ulcer prevention - Supportive transfusions as indicated to keep HgB >7g/dL COVID SPECIFIC INTERVENTIONS -Airborne, contact isolation for COVID per facility protocols - s/p Remdesivir -IV steroids-Dexamethasone -Trend d-dimer,and other inflammatory markers per facility protocol -Convalescent plasma therapy per facility protocol -Continue all supportive care Discussed with the ICU team-RT,RN, Clinical Pharmacist, Case management Life threatening condition- Cardiopulmonary arrest with ROSC, Sepsis ;COVID 19 acute hypoxemic respiratory failure on MVS Mortality/Morbidity- High Complexity of medical decision making- High CONDITION: CRITICAL PROGNOSIS: GUARDED CODE STATUS: FULL CODE The high probability of a clinically significant, sudden or life-threatening deterioration of the [respiratory & neurology, renal ] system(s) required my full and direct attention, intervention and personal management. The aggregate critical care time was [34] minutes without overlap. Time includes spent on; [x] Data Review and interpretation [x] Patient assessment and monitoring of vital signs [x] Documentation [x] Medication orders and management Subjective Date of service: 07/10/20 Principal diagnosis: Ac hypoxemic resp failure; COVID-19; pneumonia; CHF; Pulm HTN; OHS; DM II Interval history: Patient is seen today for: Ac hypoxemic resp failure s/p Cardiopulmonary arrest with ROSC; Coronavirus-19 infection; pneumonia; Pulmonary edema; Bilateral pleural effusions; CHF; Morbid obesity; pulmonary hypertension; OHS; DM II Seen and examined at bedside; 24hour events reviewed; nursing and respiratory care staff consulted; Vitals, labs,medications, chart reviewed. Remains on MVS, no fevers, Tolerating PS trials 10/5. Mental status changes persist, but grimaces to pain ad will open her eyes with sternal rub Tolerating tube feedings, UOP 800ml overnight No adverse overnight events Objective Vital Signs - 12hr 07/09/20 07/09/20 07/09/20 23:37 23:51 23:55 Temperature 98.8 F Pulse Rate 81 80 Pulse Rate [ From Monitor] Pulse Rate [ Right Dorsalis Pedis] Respiratory 13 14 Rate Blood Pressure 165/61 165/61 O2 Sat by Pulse 99 99 Oximetry 07/10/20 07/10/20 07/10/20 00:00 00:01 00:05 Temperature Pulse Rate 74 82 83 Pulse Rate [ 72 From Monitor] Pulse Rate [ 72 Right Dorsalis Pedis] Respiratory 14 12 13 Rate Blood Pressure 152/65 152/65 O2 Sat by Pulse 100 96 99 Oximetry 07/10/20 07/10/20 07/10/20 00:11 00:15 00:18 Temperature Pulse Rate 82 81 81 Pulse Rate [ From Monitor] Pulse Rate [ Right Dorsalis Pedis] Respiratory 13 13 Rate Blood Pressure 152/65 152/65 152/65 O2 Sat by Pulse 99 99 98 Oximetry 07/10/20 07/10/20 07/10/20 00:21 00:25 00:30 Temperature Pulse Rate 83 81 85 Pulse Rate [ From Monitor] Pulse Rate [ Right Dorsalis Pedis] Respiratory 15 14 14 Rate Blood Pressure 152/65 152/65 162/63 O2 Sat by Pulse 99 98 97 Oximetry 07/10/20 07/10/20 07/10/20 00:35 00:41 00:45 Temperature Pulse Rate 84 83 80 Pulse Rate [ From Monitor] Pulse Rate [ Right Dorsalis Pedis] Respiratory 16 14 13 Rate Blood Pressure 162/63 152/65 152/65 O2 Sat by Pulse 99 99 99 Oximetry 07/10/20 07/10/20 07/10/20 00:50 00:55 01:01 Temperature Pulse Rate 75 79 80 Pulse Rate [ From Monitor] Pulse Rate [ Right Dorsalis Pedis] Respiratory 14 13 12 Rate Blood Pressure 162/63 152/65 141/57 O2 Sat by Pulse 99 99 96 Oximetry 07/10/20 07/10/20 07/10/20 01:05 01:11 01:15 Temperature Pulse Rate 74 77 72 Pulse Rate [ From Monitor] Pulse Rate [ Right Dorsalis Pedis] Respiratory 13 13 14 Rate Blood Pressure 141/57 162/63 162/63 O2 Sat by Pulse 98 98 99 Oximetry 07/10/20 07/10/20 07/10/20 01:21 01:25 01:31 Temperature Pulse Rate 71 70 76 Pulse Rate [ From Monitor] Pulse Rate [ Right Dorsalis Pedis] Respiratory 14 13 13 Rate Blood Pressure 162/63 162/63 136/55 O2 Sat by Pulse 98 99 96 Oximetry 07/10/20 07/10/20 07/10/20 01:35 01:41 01:45 Temperature Pulse Rate 71 75 72 Pulse Rate [ From Monitor] Pulse Rate [ Right Dorsalis Pedis] Respiratory 14 13 14 Rate Blood Pressure 136/55 141/57 141/57 O2 Sat by Pulse 99 99 99 Oximetry 07/10/20 07/10/20 07/10/20 01:51 01:55 02:00 Temperature Pulse Rate 74 75 73 Pulse Rate [ From Monitor] Pulse Rate [ Right Dorsalis Pedis] Respiratory 14 12 14 Rate Blood Pressure 141/57 141/57 141/53 O2 Sat by Pulse 99 99 96 Oximetry 07/10/20 07/10/20 07/10/20 02:05 02:11 02:15 Temperature Pulse Rate 73 72 85 Pulse Rate [ From Monitor] Pulse Rate [ Right Dorsalis Pedis] Respiratory 13 14 14 Rate Blood Pressure 141/53 141/53 141/53 O2 Sat by Pulse 99 99 99 Oximetry 07/10/20 07/10/20 07/10/20 02:21 02:25 02:30 Temperature Pulse Rate 82 83 81 Pulse Rate [ From Monitor] Pulse Rate [ Right Dorsalis Pedis] Respiratory 14 13 13 Rate Blood Pressure 141/53 141/53 155/62 O2 Sat by Pulse 99 99 96 Oximetry 07/10/20 07/10/20 07/10/20 02:35 02:41 02:45 Temperature Pulse Rate 84 81 81 Pulse Rate [ From Monitor] Pulse Rate [ Right Dorsalis Pedis] Respiratory 13 14 13 Rate Blood Pressure 155/62 155/62 155/62 O2 Sat by Pulse 99 99 99 Oximetry 07/10/20 07/10/20 07/10/20 02:51 02:55 03:01 Temperature Pulse Rate 84 80 81 Pulse Rate [ From Monitor] Pulse Rate [ Right Dorsalis Pedis] Respiratory 14 14 16 Rate Blood Pressure 155/62 155/62 154/60 O2 Sat by Pulse 99 99 97 Oximetry 07/10/20 07/10/20 07/10/20 03:05 03:11 03:15 Temperature Pulse Rate 77 81 82 Pulse Rate [ From Monitor] Pulse Rate [ Right Dorsalis Pedis] Respiratory 12 14 14 Rate Blood Pressure 154/60 154/60 154/60 O2 Sat by Pulse 99 99 99 Oximetry 07/10/20 07/10/20 07/10/20 03:21 03:25 03:28 Temperature 98.9 F Pulse Rate 81 81 Pulse Rate [ From Monitor] Pulse Rate [ Right Dorsalis Pedis] Respiratory 15 14 Rate Blood Pressure 154/60 154/60 O2 Sat by Pulse 99 99 Oximetry 07/10/20 07/10/20 07/10/20 03:31 03:35 03:41 Temperature Pulse Rate 76 76 77 Pulse Rate [ From Monitor] Pulse Rate [ Right Dorsalis Pedis] Respiratory 13 13 13 Rate Blood Pressure 146/54 146/54 146/54 O2 Sat by Pulse 97 99 99 Oximetry 07/10/20 07/10/20 07/10/20 03:45 03:51 03:55 Temperature Pulse Rate 79 82 77 Pulse Rate [ From Monitor] Pulse Rate [ Right Dorsalis Pedis] Respiratory 14 13 13 Rate Blood Pressure 146/54 146/54 146/54 O2 Sat by Pulse 99 99 99 Oximetry 07/10/20 07/10/20 07/10/20 04:00 04:05 04:11 Temperature Pulse Rate 78 75 76 Pulse Rate [ 74 From Monitor] Pulse Rate [ Right Dorsalis Pedis] Respiratory 14 14 12 Rate Blood Pressure 141/55 147/57 146/54 O2 Sat by Pulse 98 99 99 Oximetry 07/10/20 07/10/20 07/10/20 04:15 04:21 04:25 Temperature Pulse Rate 72 73 77 Pulse Rate [ From Monitor] Pulse Rate [ Right Dorsalis Pedis] Respiratory 13 14 13 Rate Blood Pressure 146/54 146/54 146/54 O2 Sat by Pulse 99 99 99 Oximetry 07/10/20 07/10/20 07/10/20 04:30 04:35 04:41 Temperature Pulse Rate 82 84 83 Pulse Rate [ From Monitor] Pulse Rate [ Right Dorsalis Pedis] Respiratory 11 L 14 14 Rate Blood Pressure 145/64 145/64 145/64 O2 Sat by Pulse 96 99 99 Oximetry 07/10/20 07/10/20 07/10/20 04:45 04:51 04:55 Temperature Pulse Rate 81 79 81 Pulse Rate [ From Monitor] Pulse Rate [ Right Dorsalis Pedis] Respiratory 14 13 15 Rate Blood Pressure 145/64 145/64 145/64 O2 Sat by Pulse 99 99 99 Oximetry 07/10/20 07/10/20 07/10/20 05:00 05:05 05:11 Temperature Pulse Rate 80 82 81 Pulse Rate [ From Monitor] Pulse Rate [ Right Dorsalis Pedis] Respiratory 15 15 16 Rate Blood Pressure 141/55 141/55 141/55 O2 Sat by Pulse 96 99 99 Oximetry 07/10/20 07/10/20 07/10/20 05:15 05:21 05:25 Temperature Pulse Rate 80 83 85 Pulse Rate [ From Monitor] Pulse Rate [ Right Dorsalis Pedis] Respiratory 14 13 16 Rate Blood Pressure 141/55 141/55 141/55 O2 Sat by Pulse 99 99 99 Oximetry 07/10/20 07/10/20 07/10/20 05:30 05:35 05:41 Temperature Pulse Rate 78 81 77 Pulse Rate [ From Monitor] Pulse Rate [ Right Dorsalis Pedis] Respiratory 13 16 13 Rate Blood Pressure 151/55 151/55 151/55 O2 Sat by Pulse 97 100 99 Oximetry 07/10/20 07/10/20 07/10/20 05:45 05:51 05:55 Temperature Pulse Rate 78 81 80 Pulse Rate [ From Monitor] Pulse Rate [ Right Dorsalis Pedis] Respiratory 13 14 12 Rate Blood Pressure 151/55 151/55 151/55 O2 Sat by Pulse 99 99 99 Oximetry 07/10/20 07/10/20 07/10/20 06:01 06:05 06:11 Temperature Pulse Rate 77 75 73 Pulse Rate [ From Monitor] Pulse Rate [ Right Dorsalis Pedis] Respiratory 13 14 14 Rate Blood Pressure 144/52 144/52 144/52 O2 Sat by Pulse 97 99 99 Oximetry 07/10/20 07/10/20 07/10/20 06:15 06:21 06:25 Temperature Pulse Rate 72 76 83 Pulse Rate [ From Monitor] Pulse Rate [ Right Dorsalis Pedis] Respiratory 13 11 L 9 L Rate Blood Pressure 144/52 144/52 144/52 O2 Sat by Pulse 99 99 98 Oximetry 07/10/20 07/10/20 07/10/20 06:28 06:30 06:35 Temperature Pulse Rate 81 77 79 Pulse Rate [ From Monitor] Pulse Rate [ Right Dorsalis Pedis] Respiratory 13 12 Rate Blood Pressure 144/52 148/57 148/57 O2 Sat by Pulse 97 99 Oximetry 07/10/20 07/10/20 07/10/20 06:41 06:45 06:51 Temperature Pulse Rate 76 74 80 Pulse Rate [ From Monitor] Pulse Rate [ Right Dorsalis Pedis] Respiratory 13 14 12 Rate Blood Pressure 148/57 148/57 148/57 O2 Sat by Pulse 99 99 99 Oximetry 07/10/20 07/10/20 07/10/20 06:55 07:00 07:05 Temperature Pulse Rate 83 76 81 Pulse Rate [ From Monitor] Pulse Rate [ Right Dorsalis Pedis] Respiratory 15 13 13 Rate Blood Pressure 148/57 150/54 150/54 O2 Sat by Pulse 99 97 99 Oximetry 07/10/20 07/10/20 07/10/20 07:11 07:15 07:21 Temperature Pulse Rate 81 81 85 Pulse Rate [ From Monitor] Pulse Rate [ Right Dorsalis Pedis] Respiratory 15 15 13 Rate Blood Pressure 150/54 150/54 150/54 O2 Sat by Pulse 99 99 97 Oximetry 07/10/20 07/10/20 07/10/20 07:25 07:30 07:35 Temperature Pulse Rate 81 81 81 Pulse Rate [ From Monitor] Pulse Rate [ Right Dorsalis Pedis] Respiratory 14 13 15 Rate Blood Pressure 150/54 153/57 153/57 O2 Sat by Pulse 99 96 99 Oximetry 07/10/20 07/10/20 07/10/20 07:41 08:00 09:14 Temperature 98.3 F Pulse Rate 79 81 Pulse Rate [ From Monitor] Pulse Rate [ Right Dorsalis Pedis] Respiratory 15 Rate Blood Pressure 153/57 147/63 O2 Sat by Pulse 99 99 Oximetry 07/10/20 07/10/20 07/10/20 09:19 10:14 10:15 Temperature Pulse Rate 84 85 85 Pulse Rate [ From Monitor] Pulse Rate [ Right Dorsalis Pedis] Respiratory 17 Rate Blood Pressure 147/63 157/61 157/61 O2 Sat by Pulse 100 Oximetry 07/10/20 10:16 Temperature Pulse Rate 85 Pulse Rate [ From Monitor] Pulse Rate [ Right Dorsalis Pedis] Respiratory Rate Blood Pressure 157/61 O2 Sat by Pulse Oximetry Constitutional: no acute distress, other (elderly looking obese female on HFNC with mildly increased respiratory effort at rest on MVS) Eyes: non-icteric ENT: oropharynx dry, other (ETT 23-24 cm AYAN) Neck: supple, no lymphadenopathy, no JVD, other (large neck circumference) Effort: mildly labored Ascultation: Bilateral: clear, diminished breath sounds, rales, rhonchi (scant) Percussion: Bilateral: not dull Cardiovascular: regular rate and rhythm, other (S1,S2) Gastrointestinal: normoactive bowel sounds, soft, non-tender, non-distended Integumentary: normal Extremities: no cyanosis, no edema, pink and warm, pulses normal, no ischemia or petechiae Neurologic: pupils equal and round, unable to assess, other (minimally responsive) Psychiatric: other (unable to assess re: AMS) CBC and BMP: 07/13/20 04:53 07/13/20 04:53 ABG, PT/INR, D-dimer: ABG ABG pH 7.32 pH Units (7.350-7.450) L 07/05/20 13:05 POC ABG pCO2 35.8 mmHg (32.0-48.0) 07/01/20 05:02 ABG pCO2 47.0 mm Hg 07/05/20 13:05 POC ABG pO2 90.8 mmHg (83-108) 07/01/20 05:02 ABG pO2 78.3 mm Hg (80.0-90.0) L 07/05/20 13:05 POC ABG HCO3 22.1 07/01/20 05:02 ABG O2 Saturation 96.1 % (95.0-99.0) 07/05/20 13:05 PT/INR, D-dimer PT 14.2 Sec. (12.2-14.9) 05/29/20 15:10 INR 1.08 (0.87-1.13) 05/29/20 15:10 D-Dimer 2310.15 ng/mlDDU (0-234) H 06/29/20 14:45 Abnormal lab findings: Abnormal Labs 05/28/20 05/28/20 05/28/20 13:29 13:47 13:47 WBC RBC Hgb Hct MCHC RDW 15.3 H Lymph % (Auto) [place] % (Auto) Eos % (Auto) Lymph # [place] # Lymph # (Auto) [place] # (Auto) Seg Neutrophils % Seg Neuts % (Manual) Lymphocytes % (Manual) Seg Neutrophils # Seg Neutrophils # Man Lymphocytes # (Manual) Monocytes % (Manual) Eosinophils % (Manual) Monocytes # (Manual) Eosinophils # (Manual) D-Dimer Heparin Anti-Xa Level ABG pH POC ABG pCO2 POC ABG pO2 ABG pO2 ABG HCO3 ABG O2 Saturation ABG Base Excess ABG Hemoglobin ABG Oxyhemoglobin VBG pH Oxyhemoglobin Sodium Potassium 6.6 H* Chloride 109.2 H Carbon Dioxide 17 L BUN 29 H Creatinine 1.3 H Glucose 265 H POC Glucose 248 H Lactic Acid Calcium 8.1 L Ferritin AST 63 H Alkaline Phosphatase Magnesium Lactate Dehydrogenase Total Creatine Kinase 301 H CK-MB (CK-2) 4.3 H C-Reactive Protein Total Protein 5.4 L Albumin 2.6 L Troponin T HDL Cholesterol Urine WBC (Auto) Urine Creatinine Urine Total Protein Coronavirus (PCR) Crossmatch 05/28/20 05/28/20 05/28/20 13:47 13:47 14:46 WBC RBC Hgb Hct MCHC RDW Lymph % (Auto) [place] % (Auto) Eos % (Auto) Lymph # [place] # Lymph # (Auto) [place] # (Auto) Seg Neutrophils % Seg Neuts % (Manual) Lymphocytes % (Manual) Seg Neutrophils # Seg Neutrophils # Man Lymphocytes # (Manual) Monocytes % (Manual) Eosinophils % (Manual) Monocytes # (Manual) Eosinophils # (Manual) D-Dimer Heparin Anti-Xa Level ABG pH POC ABG pCO2 POC ABG pO2 ABG pO2 ABG HCO3 ABG O2 Saturation ABG Base Excess ABG Hemoglobin ABG Oxyhemoglobin VBG pH 7.152 L* Oxyhemoglobin Sodium Potassium 7.2 H* Chloride Carbon Dioxide BUN Creatinine Glucose POC Glucose Lactic Acid 3.40 H* Calcium Ferritin AST Alkaline Phosphatase Magnesium Lactate Dehydrogenase Total Creatine Kinase CK-MB (CK-2) C-Reactive Protein Total Protein Albumin Troponin T HDL Cholesterol Urine WBC (Auto) Urine Creatinine Urine Total Protein Coronavirus (PCR) Crossmatch 05/28/20 05/28/20 05/28/20 15:33 15:33 15:51 WBC RBC Hgb Hct MCHC RDW Lymph % (Auto) [place] % (Auto) Eos % (Auto) Lymph # [place] # Lymph # (Auto) [place] # (Auto) Seg Neutrophils % Seg Neuts % (Manual) Lymphocytes % (Manual) Seg Neutrophils # Seg Neutrophils # Man Lymphocytes # (Manual) Monocytes % (Manual) Eosinophils % (Manual) Monocytes # (Manual) Eosinophils # (Manual) D-Dimer 8780.43 H Heparin Anti-Xa Level ABG pH 7.284 L POC ABG pCO2 POC ABG pO2 ABG pO2 273.0 H ABG HCO3 ABG O2 Saturation 99.4 H ABG Base Excess -6.1 L ABG Hemoglobin 17.2 H ABG Oxyhemoglobin VBG pH Oxyhemoglobin Sodium Potassium Chloride Carbon Dioxide BUN Creatinine Glucose 152 H POC Glucose Lactic Acid Calcium Ferritin AST Alkaline Phosphatase Magnesium Lactate Dehydrogenase 365 H Total Creatine Kinase CK-MB (CK-2) C-Reactive Protein Total Protein Albumin Troponin T HDL Cholesterol Urine WBC (Auto) Urine Creatinine Urine Total Protein Coronavirus (PCR) Crossmatch 05/28/20 05/28/20 05/28/20 16:30 20:41 23:20 WBC RBC Hgb Hct MCHC RDW Lymph % (Auto) [place] % (Auto) Eos % (Auto) Lymph # [place] # Lymph # (Auto) [place] # (Auto) Seg Neutrophils % Seg Neuts % (Manual) Lymphocytes % (Manual) Seg Neutrophils # Seg Neutrophils # Man Lymphocytes # (Manual) Monocytes % (Manual) Eosinophils % (Manual) Monocytes # (Manual) Eosinophils # (Manual) D-Dimer Heparin Anti-Xa Level ABG pH POC ABG pCO2 POC ABG pO2 ABG pO2 ABG HCO3 ABG O2 Saturation ABG Base Excess ABG Hemoglobin ABG Oxyhemoglobin VBG pH Oxyhemoglobin Sodium Potassium Chloride Carbon Dioxide BUN Creatinine Glucose POC Glucose 225 H 224 H Lactic Acid Calcium Ferritin AST Alkaline Phosphatase Magnesium Lactate Dehydrogenase Total Creatine Kinase CK-MB (CK-2) C-Reactive Protein Total Protein Albumin Troponin T HDL Cholesterol Urine WBC (Auto) 17.0 H Urine Creatinine Urine Total Protein Coronavirus (PCR) Crossmatch 05/28/20 05/29/20 05/29/20 Unknown 04:35 04:43 WBC RBC 3.48 L Hgb 9.8 L Hct 29.4 L MCHC RDW 16.0 H Lymph % (Auto) 7.4 L [place] % (Auto) Eos % (Auto) Lymph # 0.7 L [place] # Lymph # (Auto) [place] # (Auto) Seg Neutrophils % 89.1 H Seg Neuts % (Manual) Lymphocytes % (Manual) Seg Neutrophils # 8.1 H Seg Neutrophils # Man Lymphocytes # (Manual) Monocytes % (Manual) Eosinophils % (Manual) Monocytes # (Manual) Eosinophils # (Manual) D-Dimer Heparin Anti-Xa Level ABG pH POC ABG pCO2 POC ABG pO2 ABG pO2 ABG HCO3 19.3 L ABG O2 Saturation ABG Base Excess -4.5 L ABG Hemoglobin 9.7 L ABG Oxyhemoglobin VBG pH Oxyhemoglobin Sodium Potassium Chloride Carbon Dioxide BUN Creatinine Glucose POC Glucose Lactic Acid Calcium Ferritin AST Alkaline Phosphatase Magnesium Lactate Dehydrogenase Total Creatine Kinase CK-MB (CK-2) C-Reactive Protein Total Protein Albumin Troponin T HDL Cholesterol Urine WBC (Auto) Urine Creatinine Urine Total Protein Coronavirus (PCR) Positive A Crossmatch 05/29/20 05/29/20 05/29/20 04:43 15:10 17:17 WBC RBC Hgb 9.3 L Hct 28.7 L MCHC RDW Lymph % (Auto) [place] % (Auto) Eos % (Auto) Lymph # [place] # Lymph # (Auto) [place] # (Auto) Seg Neutrophils % Seg Neuts % (Manual) Lymphocytes % (Manual) Seg Neutrophils # Seg Neutrophils # Man Lymphocytes # (Manual) Monocytes % (Manual) Eosinophils % (Manual) Monocytes # (Manual) Eosinophils # (Manual) D-Dimer Heparin Anti-Xa Level ABG pH POC ABG pCO2 POC ABG pO2 ABG pO2 ABG HCO3 ABG O2 Saturation ABG Base Excess ABG Hemoglobin ABG Oxyhemoglobin VBG pH Oxyhemoglobin Sodium Potassium Chloride 110.2 H Carbon Dioxide 18 L BUN 32 H Creatinine 1.4 H Glucose 180 H POC Glucose 147 H Lactic Acid Calcium Ferritin AST Alkaline Phosphatase Magnesium Lactate Dehydrogenase Total Creatine Kinase CK-MB (CK-2) C-Reactive Protein Total Protein Albumin Troponin T HDL Cholesterol Urine WBC (Auto) Urine Creatinine Urine Total Protein Coronavirus (PCR) Crossmatch 05/30/20 05/30/20 05/30/20 00:08 00:12 04:15 WBC RBC Hgb Hct MCHC RDW Lymph % (Auto) [place] % (Auto) Eos % (Auto) Lymph # [place] # Lymph # (Auto) [place] # (Auto) Seg Neutrophils % Seg Neuts % (Manual) Lymphocytes % (Manual) Seg Neutrophils # Seg Neutrophils # Man Lymphocytes # (Manual) Monocytes % (Manual) Eosinophils % (Manual) Monocytes # (Manual) Eosinophils # (Manual) D-Dimer Heparin Anti-Xa Level 0.71 H ABG pH 7.460 H POC ABG pCO2 POC ABG pO2 ABG pO2 106.0 H ABG HCO3 18.9 L ABG O2 Saturation ABG Base Excess -4.4 L ABG Hemoglobin 6.8 L ABG Oxyhemoglobin VBG pH Oxyhemoglobin Sodium Potassium Chloride Carbon Dioxide BUN Creatinine Glucose POC Glucose 195 H Lactic Acid Calcium Ferritin AST Alkaline Phosphatase Magnesium Lactate Dehydrogenase Total Creatine Kinase CK-MB (CK-2) C-Reactive Protein Total Protein Albumin Troponin T HDL Cholesterol Urine WBC (Auto) Urine Creatinine Urine Total Protein Coronavirus (PCR) Crossmatch 05/30/20 05/30/20 05/30/20 06:07 08:37 12:33 WBC RBC Hgb Hct MCHC RDW Lymph % (Auto) [place] % (Auto) Eos % (Auto) Lymph # [place] # Lymph # (Auto) [place] # (Auto) Seg Neutrophils % Seg Neuts % (Manual) Lymphocytes % (Manual) Seg Neutrophils # Seg Neutrophils # Man Lymphocytes # (Manual) Monocytes % (Manual) Eosinophils % (Manual) Monocytes # (Manual) Eosinophils # (Manual) D-Dimer Heparin Anti-Xa Level 0.85 H ABG pH POC ABG pCO2 POC ABG pO2 ABG pO2 ABG HCO3 ABG O2 Saturation ABG Base Excess ABG Hemoglobin ABG Oxyhemoglobin VBG pH Oxyhemoglobin Sodium Potassium Chloride Carbon Dioxide BUN Creatinine Glucose POC Glucose 182 H 187 H Lactic Acid Calcium Ferritin AST Alkaline Phosphatase Magnesium Lactate Dehydrogenase Total Creatine Kinase CK-MB (CK-2) C-Reactive Protein Total Protein Albumin Troponin T HDL Cholesterol Urine WBC (Auto) Urine Creatinine Urine Total Protein Coronavirus (PCR) Crossmatch 05/30/20 05/30/20 05/30/20 15:58 17:57 23:36 WBC RBC Hgb Hct MCHC RDW Lymph % (Auto) [place] % (Auto) Eos % (Auto) Lymph # [place] # Lymph # (Auto) [place] # (Auto) Seg Neutrophils % Seg Neuts % (Manual) Lymphocytes % (Manual) Seg Neutrophils # Seg Neutrophils # Man Lymphocytes # (Manual) Monocytes % (Manual) Eosinophils % (Manual) Monocytes # (Manual) Eosinophils # (Manual) D-Dimer Heparin Anti-Xa Level 1.03 H ABG pH POC ABG pCO2 POC ABG pO2 ABG pO2 ABG HCO3 ABG O2 Saturation ABG Base Excess ABG Hemoglobin ABG Oxyhemoglobin VBG pH Oxyhemoglobin Sodium Potassium Chloride Carbon Dioxide BUN Creatinine Glucose POC Glucose 208 H 185 H Lactic Acid Calcium Ferritin AST Alkaline Phosphatase Magnesium Lactate Dehydrogenase Total Creatine Kinase CK-MB (CK-2) C-Reactive Protein Total Protein Albumin Troponin T HDL Cholesterol Urine WBC (Auto) Urine Creatinine Urine Total Protein Coronavirus (PCR) Crossmatch 05/31/20 05/31/20 05/31/20 02:16 03:55 06:16 WBC RBC Hgb 9.2 L Hct 27.5 L MCHC RDW Lymph % (Auto) [place] % (Auto) Eos % (Auto) Lymph # [place] # Lymph # (Auto) [place] # (Auto) Seg Neutrophils % Seg Neuts % (Manual) Lymphocytes % (Manual) Seg Neutrophils # Seg Neutrophils # Man Lymphocytes # (Manual) Monocytes % (Manual) Eosinophils % (Manual) Monocytes # (Manual) Eosinophils # (Manual) D-Dimer Heparin Anti-Xa Level ABG pH POC ABG pCO2 POC ABG pO2 ABG pO2 94.7 H ABG HCO3 18.6 L ABG O2 Saturation ABG Base Excess -5.5 L ABG Hemoglobin 7.9 L ABG Oxyhemoglobin VBG pH Oxyhemoglobin Sodium Potassium Chloride Carbon Dioxide BUN Creatinine Glucose POC Glucose 160 H Lactic Acid Calcium Ferritin AST Alkaline Phosphatase Magnesium Lactate Dehydrogenase Total Creatine Kinase CK-MB (CK-2) C-Reactive Protein Total Protein Albumin Troponin T HDL Cholesterol Urine WBC (Auto) Urine Creatinine Urine Total Protein Coronavirus (PCR) Crossmatch 05/31/20 05/31/20 05/31/20 12:20 13:03 18:13 WBC RBC Hgb Hct MCHC RDW Lymph % (Auto) [place] % (Auto) Eos % (Auto) Lymph # [place] # Lymph # (Auto) [place] # (Auto) Seg Neutrophils % Seg Neuts % (Manual) Lymphocytes % (Manual) Seg Neutrophils # Seg Neutrophils # Man Lymphocytes # (Manual) Monocytes % (Manual) Eosinophils % (Manual) Monocytes # (Manual) Eosinophils # (Manual) D-Dimer Heparin Anti-Xa Level ABG pH POC ABG pCO2 POC ABG pO2 ABG pO2 ABG HCO3 ABG O2 Saturation ABG Base Excess ABG Hemoglobin ABG Oxyhemoglobin VBG pH Oxyhemoglobin Sodium Potassium Chloride Carbon Dioxide 18 L BUN 48 H Creatinine 1.6 H Glucose 115 H POC Glucose 128 H 159 H Lactic Acid Calcium 8.3 L Ferritin AST Alkaline Phosphatase Magnesium Lactate Dehydrogenase Total Creatine Kinase CK-MB (CK-2) C-Reactive Protein Total Protein 5.4 L Albumin 2.4 L Troponin T HDL Cholesterol Urine WBC (Auto) Urine Creatinine Urine Total Protein Coronavirus (PCR) Crossmatch 05/31/20 06/01/20 06/01/20 23:51 04:00 05:48 WBC RBC Hgb Hct MCHC RDW Lymph % (Auto) [place] % (Auto) Eos % (Auto) Lymph # [place] # Lymph # (Auto) [place] # (Auto) Seg Neutrophils % Seg Neuts % (Manual) Lymphocytes % (Manual) Seg Neutrophils # Seg Neutrophils # Man Lymphocytes # (Manual) Monocytes % (Manual) Eosinophils % (Manual) Monocytes # (Manual) Eosinophils # (Manual) D-Dimer Heparin Anti-Xa Level ABG pH POC ABG pCO2 POC ABG pO2 ABG pO2 109.8 H ABG HCO3 18.8 L ABG O2 Saturation ABG Base Excess -5.9 L ABG Hemoglobin 7.8 L ABG Oxyhemoglobin VBG pH Oxyhemoglobin Sodium Potassium Chloride Carbon Dioxide BUN Creatinine Glucose POC Glucose 171 H 133 H Lactic Acid Calcium Ferritin AST Alkaline Phosphatase Magnesium Lactate Dehydrogenase Total Creatine Kinase CK-MB (CK-2) C-Reactive Protein Total Protein Albumin Troponin T HDL Cholesterol Urine WBC (Auto) Urine Creatinine Urine Total Protein Coronavirus (PCR) Crossmatch 06/01/20 06/01/20 06/02/20 12:28 17:29 00:08 WBC RBC Hgb Hct MCHC RDW Lymph % (Auto) [place] % (Auto) Eos % (Auto) Lymph # [place] # Lymph # (Auto) [place] # (Auto) Seg Neutrophils % Seg Neuts % (Manual) Lymphocytes % (Manual) Seg Neutrophils # Seg Neutrophils # Man Lymphocytes # (Manual) Monocytes % (Manual) Eosinophils % (Manual) Monocytes # (Manual) Eosinophils # (Manual) D-Dimer Heparin Anti-Xa Level ABG pH POC ABG pCO2 POC ABG pO2 ABG pO2 ABG HCO3 ABG O2 Saturation ABG Base Excess ABG Hemoglobin ABG Oxyhemoglobin VBG pH Oxyhemoglobin Sodium Potassium Chloride Carbon Dioxide BUN Creatinine Glucose POC Glucose 199 H 209 H 162 H Lactic Acid Calcium Ferritin AST Alkaline Phosphatase Magnesium Lactate Dehydrogenase Total Creatine Kinase CK-MB (CK-2) C-Reactive Protein Total Protein Albumin Troponin T HDL Cholesterol Urine WBC (Auto) Urine Creatinine Urine Total Protein Coronavirus (PCR) Crossmatch 06/02/20 06/02/20 06/02/20 04:20 04:20 04:44 WBC RBC Hgb 10.0 L Hct MCHC RDW Lymph % (Auto) [place] % (Auto) Eos % (Auto) Lymph # [place] # Lymph # (Auto) [place] # (Auto) Seg Neutrophils % Seg Neuts % (Manual) Lymphocytes % (Manual) Seg Neutrophils # Seg Neutrophils # Man Lymphocytes # (Manual) Monocytes % (Manual) Eosinophils % (Manual) Monocytes # (Manual) Eosinophils # (Manual) D-Dimer Heparin Anti-Xa Level 0.10 L ABG pH POC ABG pCO2 POC ABG pO2 ABG pO2 150.6 H ABG HCO3 ABG O2 Saturation ABG Base Excess -4.1 L ABG Hemoglobin 11.8 L ABG Oxyhemoglobin VBG pH Oxyhemoglobin Sodium Potassium Chloride Carbon Dioxide BUN Creatinine Glucose POC Glucose Lactic Acid Calcium Ferritin AST Alkaline Phosphatase Magnesium Lactate Dehydrogenase Total Creatine Kinase CK-MB (CK-2) C-Reactive Protein Total Protein Albumin Troponin T HDL Cholesterol Urine WBC (Auto) Urine Creatinine Urine Total Protein Coronavirus (PCR) Crossmatch 06/02/20 06/02/20 06/02/20 05:53 12:04 13:49 WBC RBC Hgb Hct MCHC RDW Lymph % (Auto) [place] % (Auto) Eos % (Auto) Lymph # [place] # Lymph # (Auto) [place] # (Auto) Seg Neutrophils % Seg Neuts % (Manual) Lymphocytes % (Manual) Seg Neutrophils # Seg Neutrophils # Man Lymphocytes # (Manual) Monocytes % (Manual) Eosinophils % (Manual) Monocytes # (Manual) Eosinophils # (Manual) D-Dimer Heparin Anti-Xa Level 0.28 L ABG pH POC ABG pCO2 POC ABG pO2 ABG pO2 ABG HCO3 ABG O2 Saturation ABG Base Excess ABG Hemoglobin ABG Oxyhemoglobin VBG pH Oxyhemoglobin Sodium Potassium Chloride Carbon Dioxide BUN Creatinine Glucose POC Glucose 149 H 220 H Lactic Acid Calcium Ferritin AST Alkaline Phosphatase Magnesium Lactate Dehydrogenase Total Creatine Kinase CK-MB (CK-2) C-Reactive Protein Total Protein Albumin Troponin T HDL Cholesterol Urine WBC (Auto) Urine Creatinine Urine Total Protein Coronavirus (PCR) Crossmatch 06/02/20 06/02/20 06/03/20 13:49 18:31 00:42 WBC RBC Hgb Hct MCHC RDW Lymph % (Auto) [place] % (Auto) Eos % (Auto) Lymph # [place] # Lymph # (Auto) [place] # (Auto) Seg Neutrophils % Seg Neuts % (Manual) Lymphocytes % (Manual) Seg Neutrophils # Seg Neutrophils # Man Lymphocytes # (Manual) Monocytes % (Manual) Eosinophils % (Manual) Monocytes # (Manual) Eosinophils # (Manual) D-Dimer 769.68 H Heparin Anti-Xa Level ABG pH POC ABG pCO2 POC ABG pO2 ABG pO2 ABG HCO3 ABG O2 Saturation ABG Base Excess ABG Hemoglobin ABG Oxyhemoglobin VBG pH Oxyhemoglobin Sodium Potassium Chloride Carbon Dioxide BUN Creatinine Glucose POC Glucose 225 H 212 H Lactic Acid Calcium Ferritin AST Alkaline Phosphatase Magnesium Lactate Dehydrogenase Total Creatine Kinase CK-MB (CK-2) C-Reactive Protein Total Protein Albumin Troponin T HDL Cholesterol Urine WBC (Auto) Urine Creatinine Urine Total Protein Coronavirus (PCR) Crossmatch 06/03/20 06/03/20 06/03/20 05:16 05:16 05:25 WBC 11.4 H RBC Hgb Hct MCHC RDW 16.4 H Lymph % (Auto) [place] % (Auto) Eos % (Auto) Lymph # [place] # Lymph # (Auto) [place] # (Auto) Seg Neutrophils % Seg Neuts % (Manual) Lymphocytes % (Manual) Seg Neutrophils # Seg Neutrophils # Man Lymphocytes # (Manual) Monocytes % (Manual) Eosinophils % (Manual) Monocytes # (Manual) Eosinophils # (Manual) D-Dimer Heparin Anti-Xa Level ABG pH POC ABG pCO2 POC ABG pO2 ABG pO2 160.9 H ABG HCO3 19.4 L ABG O2 Saturation ABG Base Excess -4.9 L ABG Hemoglobin 7.0 L ABG Oxyhemoglobin VBG pH Oxyhemoglobin Sodium Potassium Chloride Carbon Dioxide 18 L BUN 65 H Creatinine 2.0 H Glucose 175 H POC Glucose Lactic Acid Calcium 8.0 L Ferritin AST Alkaline Phosphatase Magnesium Lactate Dehydrogenase Total Creatine Kinase CK-MB (CK-2) C-Reactive Protein Total Protein 5.5 L Albumin 2.2 L Troponin T HDL Cholesterol Urine WBC (Auto) Urine Creatinine Urine Total Protein Coronavirus (PCR) Crossmatch 06/03/20 06/03/20 06/03/20 06:07 11:58 18:24 WBC RBC Hgb Hct MCHC RDW Lymph % (Auto) [place] % (Auto) Eos % (Auto) Lymph # [place] # Lymph # (Auto) [place] # (Auto) Seg Neutrophils % Seg Neuts % (Manual) Lymphocytes % (Manual) Seg Neutrophils # Seg Neutrophils # Man Lymphocytes # (Manual) Monocytes % (Manual) Eosinophils % (Manual) Monocytes # (Manual) Eosinophils # (Manual) D-Dimer Heparin Anti-Xa Level ABG pH POC ABG pCO2 POC ABG pO2 ABG pO2 ABG HCO3 ABG O2 Saturation ABG Base Excess ABG Hemoglobin ABG Oxyhemoglobin VBG pH Oxyhemoglobin Sodium Potassium Chloride Carbon Dioxide BUN Creatinine Glucose POC Glucose 177 H 163 H 211 H Lactic Acid Calcium Ferritin AST Alkaline Phosphatase Magnesium Lactate Dehydrogenase Total Creatine Kinase CK-MB (CK-2) C-Reactive Protein Total Protein Albumin Troponin T HDL Cholesterol Urine WBC (Auto) Urine Creatinine Urine Total Protein Coronavirus (PCR) Crossmatch 06/03/20 06/03/20 06/04/20 21:50 Unknown 00:26 WBC RBC Hgb Hct MCHC RDW Lymph % (Auto) [place] % (Auto) Eos % (Auto) Lymph # [place] # Lymph # (Auto) [place] # (Auto) Seg Neutrophils % Seg Neuts % (Manual) Lymphocytes % (Manual) Seg Neutrophils # Seg Neutrophils # Man Lymphocytes # (Manual) Monocytes % (Manual) Eosinophils % (Manual) Monocytes # (Manual) Eosinophils # (Manual) D-Dimer Heparin Anti-Xa Level ABG pH POC ABG pCO2 POC ABG pO2 ABG pO2 ABG HCO3 ABG O2 Saturation ABG Base Excess ABG Hemoglobin ABG Oxyhemoglobin VBG pH Oxyhemoglobin Sodium 135 L Potassium Chloride Carbon Dioxide 18 L BUN Creatinine Glucose POC Glucose 241 H Lactic Acid Calcium Ferritin AST Alkaline Phosphatase Magnesium Lactate Dehydrogenase Total Creatine Kinase CK-MB (CK-2) C-Reactive Protein Total Protein Albumin Troponin T HDL Cholesterol Urine WBC (Auto) 11.0 H Urine Creatinine Urine Total Protein Coronavirus (PCR) Crossmatch 06/04/20 06/04/20 06/04/20 03:35 04:19 04:19 WBC RBC 3.15 L Hgb 8.9 L Hct 26.8 L D MCHC RDW 15.9 H Lymph % (Auto) 6.0 L [place] % (Auto) Eos % (Auto) Lymph # 0.6 L [place] # Lymph # (Auto) [place] # (Auto) Seg Neutrophils % 86.6 H Seg Neuts % (Manual) Lymphocytes % (Manual) Seg Neutrophils # 9.1 H Seg Neutrophils # Man Lymphocytes # (Manual) Monocytes % (Manual) Eosinophils % (Manual) Monocytes # (Manual) Eosinophils # (Manual) D-Dimer Heparin Anti-Xa Level ABG pH 7.331 L POC ABG pCO2 POC ABG pO2 ABG pO2 ABG HCO3 ABG O2 Saturation ABG Base Excess -4.7 L ABG Hemoglobin 11.0 L ABG Oxyhemoglobin VBG pH Oxyhemoglobin 93.9 L Sodium 136 L Potassium Chloride Carbon Dioxide 20 L BUN 73 H Creatinine 2.0 H Glucose 192 H POC Glucose Lactic Acid Calcium 8.0 L Ferritin AST Alkaline Phosphatase Magnesium Lactate Dehydrogenase 271 H Total Creatine Kinase CK-MB (CK-2) C-Reactive Protein 2.20 H Total Protein 5.0 L Albumin 2.0 L Troponin T HDL Cholesterol Urine WBC (Auto) Urine Creatinine Urine Total Protein Coronavirus (PCR) Crossmatch 06/04/20 06/04/20 06/04/20 04:19 05:51 11:48 WBC RBC Hgb Hct MCHC RDW Lymph % (Auto) [place] % (Auto) Eos % (Auto) Lymph # [place] # Lymph # (Auto) [place] # (Auto) Seg Neutrophils % Seg Neuts % (Manual) Lymphocytes % (Manual) Seg Neutrophils # Seg Neutrophils # Man Lymphocytes # (Manual) Monocytes % (Manual) Eosinophils % (Manual) Monocytes # (Manual) Eosinophils # (Manual) D-Dimer 414.52 H Heparin Anti-Xa Level ABG pH POC ABG pCO2 POC ABG pO2 ABG pO2 ABG HCO3 ABG O2 Saturation ABG Base Excess ABG Hemoglobin ABG Oxyhemoglobin VBG pH Oxyhemoglobin Sodium Potassium Chloride Carbon Dioxide BUN Creatinine Glucose POC Glucose 179 H 213 H Lactic Acid Calcium Ferritin AST Alkaline Phosphatase Magnesium Lactate Dehydrogenase Total Creatine Kinase CK-MB (CK-2) C-Reactive Protein Total Protein Albumin Troponin T HDL Cholesterol Urine WBC (Auto) Urine Creatinine Urine Total Protein Coronavirus (PCR) Crossmatch 06/04/20 06/05/20 06/05/20 18:25 00:16 05:00 WBC RBC Hgb Hct MCHC RDW Lymph % (Auto) [place] % (Auto) Eos % (Auto) Lymph # [place] # Lymph # (Auto) [place] # (Auto) Seg Neutrophils % Seg Neuts % (Manual) Lymphocytes % (Manual) Seg Neutrophils # Seg Neutrophils # Man Lymphocytes # (Manual) Monocytes % (Manual) Eosinophils % (Manual) Monocytes # (Manual) Eosinophils # (Manual) D-Dimer Heparin Anti-Xa Level ABG pH 7.286 L POC ABG pCO2 POC ABG pO2 ABG pO2 96.2 H ABG HCO3 ABG O2 Saturation ABG Base Excess -6.3 L ABG Hemoglobin 8.8 L ABG Oxyhemoglobin VBG pH Oxyhemoglobin 94.8 L Sodium Potassium Chloride Carbon Dioxide BUN Creatinine Glucose POC Glucose 238 H 183 H Lactic Acid Calcium Ferritin AST Alkaline Phosphatase Magnesium Lactate Dehydrogenase Total Creatine Kinase CK-MB (CK-2) C-Reactive Protein Total Protein Albumin Troponin T HDL Cholesterol Urine WBC (Auto) Urine Creatinine Urine Total Protein Coronavirus (PCR) Crossmatch 06/05/20 06/05/20 06/05/20 05:39 07:25 07:25 WBC RBC 2.97 L Hgb 8.7 L Hct 25.7 L MCHC RDW 16.0 H Lymph % (Auto) 8.8 L [place] % (Auto) 13.3 H Eos % (Auto) Lymph # 0.8 L [place] # 1.3 H Lymph # (Auto) [place] # (Auto) Seg Neutrophils % 77.3 H Seg Neuts % (Manual) Lymphocytes % (Manual) Seg Neutrophils # Seg Neutrophils # Man Lymphocytes # (Manual) Monocytes % (Manual) Eosinophils % (Manual) Monocytes # (Manual) Eosinophils # (Manual) D-Dimer Heparin Anti-Xa Level ABG pH POC ABG pCO2 POC ABG pO2 ABG pO2 ABG HCO3 ABG O2 Saturation ABG Base Excess ABG Hemoglobin ABG Oxyhemoglobin VBG pH Oxyhemoglobin Sodium 133 L Potassium Chloride Carbon Dioxide 17 L BUN 89 H Creatinine 2.8 H Glucose 176 H POC Glucose 149 H Lactic Acid Calcium 7.7 L Ferritin AST Alkaline Phosphatase Magnesium Lactate Dehydrogenase Total Creatine Kinase CK-MB (CK-2) C-Reactive Protein Total Protein 4.2 L Albumin 1.9 L Troponin T HDL Cholesterol Urine WBC (Auto) Urine Creatinine Urine Total Protein Coronavirus (PCR) Crossmatch 06/05/20 06/05/20 06/05/20 07:25 12:05 15:41 WBC RBC Hgb Hct MCHC RDW Lymph % (Auto) [place] % (Auto) Eos % (Auto) Lymph # [place] # Lymph # (Auto) [place] # (Auto) Seg Neutrophils % Seg Neuts % (Manual) Lymphocytes % (Manual) Seg Neutrophils # Seg Neutrophils # Man Lymphocytes # (Manual) Monocytes % (Manual) Eosinophils % (Manual) Monocytes # (Manual) Eosinophils # (Manual) D-Dimer Heparin Anti-Xa Level 0.76 H 0.81 H ABG pH POC ABG pCO2 POC ABG pO2 ABG pO2 ABG HCO3 ABG O2 Saturation ABG Base Excess ABG Hemoglobin ABG Oxyhemoglobin VBG pH Oxyhemoglobin Sodium Potassium Chloride Carbon Dioxide BUN Creatinine Glucose POC Glucose 198 H Lactic Acid Calcium Ferritin AST Alkaline Phosphatase Magnesium Lactate Dehydrogenase Total Creatine Kinase CK-MB (CK-2) C-Reactive Protein Total Protein Albumin Troponin T HDL Cholesterol Urine WBC (Auto) Urine Creatinine Urine Total Protein Coronavirus (PCR) Crossmatch 06/05/20 06/05/20 06/06/20 18:08 23:25 04:00 WBC RBC Hgb Hct MCHC RDW Lymph % (Auto) [place] % (Auto) Eos % (Auto) Lymph # [place] # Lymph # (Auto) [place] # (Auto) Seg Neutrophils % Seg Neuts % (Manual) Lymphocytes % (Manual) Seg Neutrophils # Seg Neutrophils # Man Lymphocytes # (Manual) Monocytes % (Manual) Eosinophils % (Manual) Monocytes # (Manual) Eosinophils # (Manual) D-Dimer Heparin Anti-Xa Level ABG pH POC ABG pCO2 POC ABG pO2 ABG pO2 ABG HCO3 ABG O2 Saturation ABG Base Excess ABG Hemoglobin ABG Oxyhemoglobin VBG pH Oxyhemoglobin Sodium Potassium Chloride Carbon Dioxide BUN Creatinine Glucose POC Glucose 223 H 169 H Lactic Acid Calcium Ferritin AST Alkaline Phosphatase Magnesium Lactate Dehydrogenase Total Creatine Kinase CK-MB (CK-2) C-Reactive Protein Total Protein Albumin Troponin T HDL Cholesterol Urine WBC (Auto) 15.0 H Urine Creatinine Urine Total Protein Coronavirus (PCR) Crossmatch 06/06/20 06/06/20 06/06/20 04:00 05:33 05:38 WBC RBC 2.97 L Hgb 8.7 L Hct 26.8 L MCHC RDW 16.8 H Lymph % (Auto) [place] % (Auto) Eos % (Auto) Lymph # [place] # Lymph # (Auto) [place] # (Auto) Seg Neutrophils % Seg Neuts % (Manual) Lymphocytes % (Manual) Seg Neutrophils # Seg Neutrophils # Man Lymphocytes # (Manual) Monocytes % (Manual) Eosinophils % (Manual) Monocytes # (Manual) Eosinophils # (Manual) D-Dimer Heparin Anti-Xa Level ABG pH POC ABG pCO2 POC ABG pO2 ABG pO2 ABG HCO3 ABG O2 Saturation ABG Base Excess ABG Hemoglobin ABG Oxyhemoglobin VBG pH Oxyhemoglobin Sodium Potassium Chloride Carbon Dioxide BUN Creatinine Glucose POC Glucose 186 H Lactic Acid Calcium Ferritin AST Alkaline Phosphatase Magnesium Lactate Dehydrogenase Total Creatine Kinase CK-MB (CK-2) C-Reactive Protein Total Protein Albumin Troponin T HDL Cholesterol Urine WBC (Auto) Urine Creatinine 82.2 H Urine Total Protein 196 H Coronavirus (PCR) Crossmatch 06/06/20 06/06/20 06/06/20 05:38 12:25 17:03 WBC RBC Hgb Hct MCHC RDW Lymph % (Auto) [place] % (Auto) Eos % (Auto) Lymph # [place] # Lymph # (Auto) [place] # (Auto) Seg Neutrophils % Seg Neuts % (Manual) Lymphocytes % (Manual) Seg Neutrophils # Seg Neutrophils # Man Lymphocytes # (Manual) Monocytes % (Manual) Eosinophils % (Manual) Monocytes # (Manual) Eosinophils # (Manual) D-Dimer Heparin Anti-Xa Level ABG pH POC ABG pCO2 POC ABG pO2 ABG pO2 ABG HCO3 ABG O2 Saturation ABG Base Excess ABG Hemoglobin ABG Oxyhemoglobin VBG pH Oxyhemoglobin Sodium 134 L Potassium 5.2 H Chloride Carbon Dioxide 18 L BUN 97 H Creatinine 2.5 H Glucose 193 H POC Glucose 239 H 252 H Lactic Acid Calcium 7.5 L Ferritin AST Alkaline Phosphatase Magnesium Lactate Dehydrogenase Total Creatine Kinase CK-MB (CK-2) C-Reactive Protein Total Protein 4.1 L Albumin 1.9 L Troponin T HDL Cholesterol Urine WBC (Auto) Urine Creatinine Urine Total Protein Coronavirus (PCR) Crossmatch 06/07/20 06/07/20 06/07/20 00:16 01:49 04:00 WBC RBC 2.91 L Hgb 8.4 L Hct 25.0 L MCHC RDW 16.1 H Lymph % (Auto) 5.7 L [place] % (Auto) 10.5 H Eos % (Auto) Lymph # 0.6 L [place] # 1.1 H Lymph # (Auto) [place] # (Auto) Seg Neutrophils % 83.6 H Seg Neuts % (Manual) Lymphocytes % (Manual) Seg Neutrophils # 9.1 H Seg Neutrophils # Man Lymphocytes # (Manual) Monocytes % (Manual) Eosinophils % (Manual) Monocytes # (Manual) Eosinophils # (Manual) D-Dimer Heparin Anti-Xa Level 0.26 L ABG pH POC ABG pCO2 POC ABG pO2 ABG pO2 ABG HCO3 ABG O2 Saturation ABG Base Excess ABG Hemoglobin ABG Oxyhemoglobin VBG pH Oxyhemoglobin Sodium Potassium Chloride Carbon Dioxide BUN Creatinine Glucose POC Glucose 173 H Lactic Acid Calcium Ferritin AST Alkaline Phosphatase Magnesium Lactate Dehydrogenase Total Creatine Kinase CK-MB (CK-2) C-Reactive Protein Total Protein Albumin Troponin T HDL Cholesterol Urine WBC (Auto) Urine Creatinine Urine Total Protein Coronavirus (PCR) Crossmatch 06/07/20 06/07/20 06/07/20 04:00 04:54 05:51 WBC RBC Hgb Hct MCHC RDW Lymph % (Auto) [place] % (Auto) Eos % (Auto) Lymph # [place] # Lymph # (Auto) [place] # (Auto) Seg Neutrophils % Seg Neuts % (Manual) Lymphocytes % (Manual) Seg Neutrophils # Seg Neutrophils # Man Lymphocytes # (Manual) Monocytes % (Manual) Eosinophils % (Manual) Monocytes # (Manual) Eosinophils # (Manual) D-Dimer Heparin Anti-Xa Level ABG pH 7.317 L POC ABG pCO2 POC ABG pO2 ABG pO2 71.4 L ABG HCO3 ABG O2 Saturation 94.3 L ABG Base Excess -4.8 L ABG Hemoglobin 7.1 L ABG Oxyhemoglobin VBG pH Oxyhemoglobin 92.2 L Sodium 133 L Potassium Chloride Carbon Dioxide 18 L BUN 100 H Creatinine 2.5 H Glucose 158 H POC Glucose 168 H Lactic Acid Calcium 7.6 L Ferritin AST Alkaline Phosphatase Magnesium Lactate Dehydrogenase Total Creatine Kinase CK-MB (CK-2) C-Reactive Protein Total Protein 4.7 L Albumin 2.0 L Troponin T HDL Cholesterol Urine WBC (Auto) Urine Creatinine Urine Total Protein Coronavirus (PCR) Crossmatch 06/07/20 06/07/20 06/07/20 12:03 17:17 20:10 WBC RBC Hgb Hct MCHC RDW Lymph % (Auto) [place] % (Auto) Eos % (Auto) Lymph # [place] # Lymph # (Auto) [place] # (Auto) Seg Neutrophils % Seg Neuts % (Manual) Lymphocytes % (Manual) Seg Neutrophils # Seg Neutrophils # Man Lymphocytes # (Manual) Monocytes % (Manual) Eosinophils % (Manual) Monocytes # (Manual) Eosinophils # (Manual) D-Dimer Heparin Anti-Xa Level 0.17 L ABG pH POC ABG pCO2 POC ABG pO2 ABG pO2 ABG HCO3 ABG O2 Saturation ABG Base Excess ABG Hemoglobin ABG Oxyhemoglobin VBG pH Oxyhemoglobin Sodium Potassium Chloride Carbon Dioxide BUN Creatinine Glucose POC Glucose 276 H 281 H Lactic Acid Calcium Ferritin AST Alkaline Phosphatase Magnesium Lactate Dehydrogenase Total Creatine Kinase CK-MB (CK-2) C-Reactive Protein Total Protein Albumin Troponin T HDL Cholesterol Urine WBC (Auto) Urine Creatinine Urine Total Protein Coronavirus (PCR) Crossmatch 06/08/20 06/08/20 06/08/20 00:02 04:47 04:47 WBC 16.4 H RBC 3.07 L Hgb 8.6 L Hct 26.5 L MCHC RDW 16.3 H Lymph % (Auto) [place] % (Auto) Eos % (Auto) Lymph # [place] # Lymph # (Auto) [place] # (Auto) Seg Neutrophils % Seg Neuts % (Manual) 90.0 H Lymphocytes % (Manual) 3.0 L Seg Neutrophils # Seg Neutrophils # Man 14.8 H Lymphocytes # (Manual) 0.5 L Monocytes % (Manual) Eosinophils % (Manual) Monocytes # (Manual) 1.1 H Eosinophils # (Manual) D-Dimer Heparin Anti-Xa Level ABG pH POC ABG pCO2 POC ABG pO2 ABG pO2 ABG HCO3 ABG O2 Saturation ABG Base Excess ABG Hemoglobin ABG Oxyhemoglobin VBG pH Oxyhemoglobin Sodium 129 L Potassium Chloride 95.6 L Carbon Dioxide 17 L BUN 106 H Creatinine 2.5 H Glucose 213 H POC Glucose 242 H Lactic Acid Calcium 7.6 L Ferritin AST Alkaline Phosphatase Magnesium Lactate Dehydrogenase Total Creatine Kinase CK-MB (CK-2) C-Reactive Protein Total Protein 5.0 L Albumin 2.1 L Troponin T HDL Cholesterol Urine WBC (Auto) Urine Creatinine Urine Total Protein Coronavirus (PCR) Crossmatch 06/08/20 06/08/20 06/08/20 05:40 11:55 17:54 WBC RBC Hgb Hct MCHC RDW Lymph % (Auto) [place] % (Auto) Eos % (Auto) Lymph # [place] # Lymph # (Auto) [place] # (Auto) Seg Neutrophils % Seg Neuts % (Manual) Lymphocytes % (Manual) Seg Neutrophils # Seg Neutrophils # Man Lymphocytes # (Manual) Monocytes % (Manual) Eosinophils % (Manual) Monocytes # (Manual) Eosinophils # (Manual) D-Dimer Heparin Anti-Xa Level ABG pH POC ABG pCO2 POC ABG pO2 ABG pO2 ABG HCO3 ABG O2 Saturation ABG Base Excess ABG Hemoglobin ABG Oxyhemoglobin VBG pH Oxyhemoglobin Sodium Potassium Chloride Carbon Dioxide BUN Creatinine Glucose POC Glucose 221 H 218 H 163 H Lactic Acid Calcium Ferritin AST Alkaline Phosphatase Magnesium Lactate Dehydrogenase Total Creatine Kinase CK-MB (CK-2) C-Reactive Protein Total Protein Albumin Troponin T HDL Cholesterol Urine WBC (Auto) Urine Creatinine Urine Total Protein Coronavirus (PCR) Crossmatch 06/08/20 06/09/20 06/09/20 22:01 00:09 05:16 WBC 19.0 H RBC 3.35 L Hgb 9.2 L Hct 28.5 L MCHC RDW 16.3 H Lymph % (Auto) [place] % (Auto) Eos % (Auto) Lymph # [place] # Lymph # (Auto) [place] # (Auto) Seg Neutrophils % Seg Neuts % (Manual) 85.0 H Lymphocytes % (Manual) 7.0 L Seg Neutrophils # Seg Neutrophils # Man 16.2 H Lymphocytes # (Manual) Monocytes % (Manual) Eosinophils % (Manual) Monocytes # (Manual) 1.3 H Eosinophils # (Manual) D-Dimer Heparin Anti-Xa Level ABG pH POC ABG pCO2 POC ABG pO2 ABG pO2 ABG HCO3 ABG O2 Saturation ABG Base Excess ABG Hemoglobin ABG Oxyhemoglobin VBG pH Oxyhemoglobin Sodium Potassium Chloride Carbon Dioxide BUN Creatinine Glucose POC Glucose 182 H 150 H Lactic Acid Calcium Ferritin AST Alkaline Phosphatase Magnesium Lactate Dehydrogenase Total Creatine Kinase CK-MB (CK-2) C-Reactive Protein Total Protein Albumin Troponin T HDL Cholesterol Urine WBC (Auto) Urine Creatinine Urine Total Protein Coronavirus (PCR) Crossmatch 06/09/20 06/09/20 06/09/20 05:16 05:24 11:29 WBC RBC Hgb Hct MCHC RDW Lymph % (Auto) [place] % (Auto) Eos % (Auto) Lymph # [place] # Lymph # (Auto) [place] # (Auto) Seg Neutrophils % Seg Neuts % (Manual) Lymphocytes % (Manual) Seg Neutrophils # Seg Neutrophils # Man Lymphocytes # (Manual) Monocytes % (Manual) Eosinophils % (Manual) Monocytes # (Manual) Eosinophils # (Manual) D-Dimer Heparin Anti-Xa Level ABG pH POC ABG pCO2 POC ABG pO2 ABG pO2 ABG HCO3 ABG O2 Saturation ABG Base Excess ABG Hemoglobin ABG Oxyhemoglobin VBG pH Oxyhemoglobin Sodium 133 L Potassium Chloride Carbon Dioxide 19 L BUN 109 H Creatinine 2.1 H Glucose 133 H POC Glucose 128 H 119 H Lactic Acid Calcium 7.7 L Ferritin AST Alkaline Phosphatase < 5 L Magnesium Lactate Dehydrogenase Total Creatine Kinase CK-MB (CK-2) C-Reactive Protein Total Protein 4.6 L Albumin < 0.2 L Troponin T HDL Cholesterol Urine WBC (Auto) Urine Creatinine Urine Total Protein Coronavirus (PCR) Crossmatch 06/09/20 06/10/20 06/10/20 17:32 00:00 05:49 WBC RBC Hgb Hct MCHC RDW Lymph % (Auto) [place] % (Auto) Eos % (Auto) Lymph # [place] # Lymph # (Auto) [place] # (Auto) Seg Neutrophils % Seg Neuts % (Manual) Lymphocytes % (Manual) Seg Neutrophils # Seg Neutrophils # Man Lymphocytes # (Manual) Monocytes % (Manual) Eosinophils % (Manual) Monocytes # (Manual) Eosinophils # (Manual) D-Dimer Heparin Anti-Xa Level 0.19 L ABG pH POC ABG pCO2 POC ABG pO2 ABG pO2 ABG HCO3 ABG O2 Saturation ABG Base Excess ABG Hemoglobin ABG Oxyhemoglobin VBG pH Oxyhemoglobin Sodium Potassium Chloride Carbon Dioxide BUN Creatinine Glucose POC Glucose 106 H 117 H Lactic Acid Calcium Ferritin AST Alkaline Phosphatase Magnesium Lactate Dehydrogenase Total Creatine Kinase CK-MB (CK-2) C-Reactive Protein Total Protein Albumin Troponin T HDL Cholesterol Urine WBC (Auto) Urine Creatinine Urine Total Protein Coronavirus (PCR) Crossmatch 06/10/20 06/10/20 06/10/20 05:54 07:40 11:40 WBC RBC Hgb Hct MCHC RDW Lymph % (Auto) [place] % (Auto) Eos % (Auto) Lymph # [place] # Lymph # (Auto) [place] # (Auto) Seg Neutrophils % Seg Neuts % (Manual) Lymphocytes % (Manual) Seg Neutrophils # Seg Neutrophils # Man Lymphocytes # (Manual) Monocytes % (Manual) Eosinophils % (Manual) Monocytes # (Manual) Eosinophils # (Manual) D-Dimer Heparin Anti-Xa Level ABG pH POC ABG pCO2 POC ABG pO2 ABG pO2 ABG HCO3 ABG O2 Saturation ABG Base Excess ABG Hemoglobin ABG Oxyhemoglobin VBG pH Oxyhemoglobin Sodium 146 H D Potassium Chloride Carbon Dioxide 20 L BUN 99 H Creatinine 1.9 H Glucose 121 H POC Glucose 127 H 138 H Lactic Acid Calcium 8.2 L Ferritin AST Alkaline Phosphatase Magnesium Lactate Dehydrogenase Total Creatine Kinase CK-MB (CK-2) C-Reactive Protein Total Protein Albumin Troponin T HDL Cholesterol Urine WBC (Auto) Urine Creatinine Urine Total Protein Coronavirus (PCR) Crossmatch 06/10/20 06/10/20 06/10/20 14:44 17:31 23:22 WBC RBC Hgb Hct MCHC RDW Lymph % (Auto) [place] % (Auto) Eos % (Auto) Lymph # [place] # Lymph # (Auto) [place] # (Auto) Seg Neutrophils % Seg Neuts % (Manual) Lymphocytes % (Manual) Seg Neutrophils # Seg Neutrophils # Man Lymphocytes # (Manual) Monocytes % (Manual) Eosinophils % (Manual) Monocytes # (Manual) Eosinophils # (Manual) D-Dimer Heparin Anti-Xa Level 0.17 L ABG pH POC ABG pCO2 POC ABG pO2 ABG pO2 ABG HCO3 ABG O2 Saturation ABG Base Excess ABG Hemoglobin ABG Oxyhemoglobin VBG pH Oxyhemoglobin Sodium Potassium Chloride Carbon Dioxide BUN Creatinine Glucose POC Glucose 128 H 114 H Lactic Acid Calcium Ferritin AST Alkaline Phosphatase Magnesium Lactate Dehydrogenase Total Creatine Kinase CK-MB (CK-2) C-Reactive Protein Total Protein Albumin Troponin T HDL Cholesterol Urine WBC (Auto) Urine Creatinine Urine Total Protein Coronavirus (PCR) Crossmatch 06/11/20 06/11/20 06/11/20 00:22 03:45 03:45 WBC 14.6 H RBC 2.77 L Hgb 7.9 L Hct 24.3 L MCHC RDW 16.8 H Lymph % (Auto) 6.6 L [place] % (Auto) 8.5 H Eos % (Auto) Lymph # 1.0 L [place] # 1.2 H Lymph # (Auto) [place] # (Auto) Seg Neutrophils % 82.9 H Seg Neuts % (Manual) Lymphocytes % (Manual) Seg Neutrophils # 12.1 H Seg Neutrophils # Man Lymphocytes # (Manual) Monocytes % (Manual) Eosinophils % (Manual) Monocytes # (Manual) Eosinophils # (Manual) D-Dimer Heparin Anti-Xa Level 0.24 L ABG pH POC ABG pCO2 POC ABG pO2 ABG pO2 ABG HCO3 ABG O2 Saturation ABG Base Excess ABG Hemoglobin ABG Oxyhemoglobin VBG pH Oxyhemoglobin Sodium Potassium Chloride Carbon Dioxide 20 L BUN 88 H Creatinine 1.5 H Glucose 111 H POC Glucose Lactic Acid Calcium 8.2 L Ferritin AST Alkaline Phosphatase Magnesium Lactate Dehydrogenase Total Creatine Kinase CK-MB (CK-2) C-Reactive Protein Total Protein Albumin Troponin T HDL Cholesterol Urine WBC (Auto) Urine Creatinine Urine Total Protein Coronavirus (PCR) Crossmatch 06/11/20 06/11/20 06/11/20 06:03 10:22 11:11 WBC RBC Hgb Hct MCHC RDW Lymph % (Auto) [place] % (Auto) Eos % (Auto) Lymph # [place] # Lymph # (Auto) [place] # (Auto) Seg Neutrophils % Seg Neuts % (Manual) Lymphocytes % (Manual) Seg Neutrophils # Seg Neutrophils # Man Lymphocytes # (Manual) Monocytes % (Manual) Eosinophils % (Manual) Monocytes # (Manual) Eosinophils # (Manual) D-Dimer Heparin Anti-Xa Level 0.26 L ABG pH POC ABG pCO2 POC ABG pO2 ABG pO2 ABG HCO3 ABG O2 Saturation ABG Base Excess ABG Hemoglobin 9.6 L ABG Oxyhemoglobin VBG pH Oxyhemoglobin Sodium Potassium Chloride Carbon Dioxide BUN Creatinine Glucose POC Glucose 114 H Lactic Acid Calcium Ferritin AST Alkaline Phosphatase Magnesium Lactate Dehydrogenase Total Creatine Kinase CK-MB (CK-2) C-Reactive Protein Total Protein Albumin Troponin T HDL Cholesterol Urine WBC (Auto) Urine Creatinine Urine Total Protein Coronavirus (PCR) Crossmatch 06/11/20 06/11/20 06/12/20 12:24 17:24 00:21 WBC RBC Hgb Hct MCHC RDW Lymph % (Auto) [place] % (Auto) Eos % (Auto) Lymph # [place] # Lymph # (Auto) [place] # (Auto) Seg Neutrophils % Seg Neuts % (Manual) Lymphocytes % (Manual) Seg Neutrophils # Seg Neutrophils # Man Lymphocytes # (Manual) Monocytes % (Manual) Eosinophils % (Manual) Monocytes # (Manual) Eosinophils # (Manual) D-Dimer Heparin Anti-Xa Level ABG pH POC ABG pCO2 POC ABG pO2 ABG pO2 ABG HCO3 ABG O2 Saturation ABG Base Excess ABG Hemoglobin ABG Oxyhemoglobin VBG pH Oxyhemoglobin Sodium Potassium Chloride Carbon Dioxide BUN Creatinine Glucose POC Glucose 119 H 126 H 117 H Lactic Acid Calcium Ferritin AST Alkaline Phosphatase Magnesium Lactate Dehydrogenase Total Creatine Kinase CK-MB (CK-2) C-Reactive Protein Total Protein Albumin Troponin T HDL Cholesterol Urine WBC (Auto) Urine Creatinine Urine Total Protein Coronavirus (PCR) Crossmatch 06/12/20 06/12/20 06/12/20 02:46 02:46 05:46 WBC 13.2 H RBC 2.83 L Hgb 8.3 L Hct 24.3 L MCHC RDW 16.6 H Lymph % (Auto) 6.2 L [place] % (Auto) 9.5 H Eos % (Auto) Lymph # 0.8 L [place] # 1.3 H Lymph # (Auto) [place] # (Auto) Seg Neutrophils % 81.9 H Seg Neuts % (Manual) Lymphocytes % (Manual) Seg Neutrophils # 10.9 H Seg Neutrophils # Man Lymphocytes # (Manual) Monocytes % (Manual) Eosinophils % (Manual) Monocytes # (Manual) Eosinophils # (Manual) D-Dimer Heparin Anti-Xa Level ABG pH POC ABG pCO2 POC ABG pO2 ABG pO2 ABG HCO3 ABG O2 Saturation ABG Base Excess ABG Hemoglobin ABG Oxyhemoglobin VBG pH Oxyhemoglobin Sodium Potassium 3.5 L Chloride Carbon Dioxide BUN 77 H Creatinine 1.3 H Glucose POC Glucose 132 H Lactic Acid Calcium 8.3 L Ferritin AST Alkaline Phosphatase Magnesium Lactate Dehydrogenase Total Creatine Kinase CK-MB (CK-2) C-Reactive Protein Total Protein Albumin Troponin T HDL Cholesterol Urine WBC (Auto) Urine Creatinine Urine Total Protein Coronavirus (PCR) Crossmatch 06/12/20 06/12/20 06/12/20 09:20 12:16 17:48 WBC RBC Hgb Hct MCHC RDW Lymph % (Auto) [place] % (Auto) Eos % (Auto) Lymph # [place] # Lymph # (Auto) [place] # (Auto) Seg Neutrophils % Seg Neuts % (Manual) Lymphocytes % (Manual) Seg Neutrophils # Seg Neutrophils # Man Lymphocytes # (Manual) Monocytes % (Manual) Eosinophils % (Manual) Monocytes # (Manual) Eosinophils # (Manual) D-Dimer Heparin Anti-Xa Level ABG pH POC ABG pCO2 POC ABG pO2 ABG pO2 91.1 H ABG HCO3 ABG O2 Saturation ABG Base Excess ABG Hemoglobin ABG Oxyhemoglobin VBG pH Oxyhemoglobin 94.8 L Sodium Potassium Chloride Carbon Dioxide BUN Creatinine Glucose POC Glucose 167 H 182 H Lactic Acid Calcium Ferritin AST Alkaline Phosphatase Magnesium Lactate Dehydrogenase Total Creatine Kinase CK-MB (CK-2) C-Reactive Protein Total Protein Albumin Troponin T HDL Cholesterol Urine WBC (Auto) Urine Creatinine Urine Total Protein Coronavirus (PCR) Crossmatch 06/13/20 06/13/20 06/13/20 00:08 05:37 09:09 WBC RBC Hgb Hct MCHC RDW Lymph % (Auto) [place] % (Auto) Eos % (Auto) Lymph # [place] # Lymph # (Auto) [place] # (Auto) Seg Neutrophils % Seg Neuts % (Manual) Lymphocytes % (Manual) Seg Neutrophils # Seg Neutrophils # Man Lymphocytes # (Manual) Monocytes % (Manual) Eosinophils % (Manual) Monocytes # (Manual) Eosinophils # (Manual) D-Dimer Heparin Anti-Xa Level 0.86 H ABG pH POC ABG pCO2 POC ABG pO2 ABG pO2 ABG HCO3 ABG O2 Saturation ABG Base Excess ABG Hemoglobin ABG Oxyhemoglobin VBG pH Oxyhemoglobin Sodium Potassium Chloride Carbon Dioxide BUN Creatinine Glucose POC Glucose 142 H 119 H Lactic Acid Calcium Ferritin AST Alkaline Phosphatase Magnesium Lactate Dehydrogenase Total Creatine Kinase CK-MB (CK-2) C-Reactive Protein Total Protein Albumin Troponin T HDL Cholesterol Urine WBC (Auto) Urine Creatinine Urine Total Protein Coronavirus (PCR) Crossmatch 06/13/20 06/13/20 06/13/20 12:28 17:55 21:17 WBC RBC Hgb Hct MCHC RDW Lymph % (Auto) [place] % (Auto) Eos % (Auto) Lymph # [place] # Lymph # (Auto) [place] # (Auto) Seg Neutrophils % Seg Neuts % (Manual) Lymphocytes % (Manual) Seg Neutrophils # Seg Neutrophils # Man Lymphocytes # (Manual) Monocytes % (Manual) Eosinophils % (Manual) Monocytes # (Manual) Eosinophils # (Manual) D-Dimer Heparin Anti-Xa Level ABG pH POC ABG pCO2 POC ABG pO2 ABG pO2 ABG HCO3 ABG O2 Saturation ABG Base Excess ABG Hemoglobin ABG Oxyhemoglobin VBG pH Oxyhemoglobin Sodium Potassium Chloride Carbon Dioxide BUN 61 H Creatinine Glucose 131 H POC Glucose 165 H 174 H Lactic Acid Calcium Ferritin AST Alkaline Phosphatase Magnesium Lactate Dehydrogenase Total Creatine Kinase CK-MB (CK-2) C-Reactive Protein Total Protein Albumin Troponin T HDL Cholesterol Urine WBC (Auto) Urine Creatinine Urine Total Protein Coronavirus (PCR) Crossmatch 06/13/20 06/13/20 06/14/20 21:17 23:50 05:34 WBC RBC Hgb Hct MCHC RDW Lymph % (Auto) [place] % (Auto) Eos % (Auto) Lymph # [place] # Lymph # (Auto) [place] # (Auto) Seg Neutrophils % Seg Neuts % (Manual) Lymphocytes % (Manual) Seg Neutrophils # Seg Neutrophils # Man Lymphocytes # (Manual) Monocytes % (Manual) Eosinophils % (Manual) Monocytes # (Manual) Eosinophils # (Manual) D-Dimer Heparin Anti-Xa Level 0.72 H ABG pH POC ABG pCO2 POC ABG pO2 ABG pO2 ABG HCO3 ABG O2 Saturation ABG Base Excess ABG Hemoglobin ABG Oxyhemoglobin VBG pH Oxyhemoglobin Sodium 146 H Potassium Chloride 107.6 H Carbon Dioxide BUN 61 H Creatinine 1.3 H Glucose 135 H POC Glucose 146 H Lactic Acid Calcium Ferritin AST Alkaline Phosphatase Magnesium Lactate Dehydrogenase Total Creatine Kinase CK-MB (CK-2) C-Reactive Protein Total Protein Albumin Troponin T HDL Cholesterol Urine WBC (Auto) Urine Creatinine Urine Total Protein Coronavirus (PCR) Crossmatch 06/14/20 06/14/20 06/14/20 06:11 09:28 11:30 WBC RBC Hgb Hct MCHC RDW Lymph % (Auto) [place] % (Auto) Eos % (Auto) Lymph # [place] # Lymph # (Auto) [place] # (Auto) Seg Neutrophils % Seg Neuts % (Manual) Lymphocytes % (Manual) Seg Neutrophils # Seg Neutrophils # Man Lymphocytes # (Manual) Monocytes % (Manual) Eosinophils % (Manual) Monocytes # (Manual) Eosinophils # (Manual) D-Dimer Heparin Anti-Xa Level 0.90 H ABG pH POC ABG pCO2 POC ABG pO2 ABG pO2 ABG HCO3 ABG O2 Saturation ABG Base Excess ABG Hemoglobin ABG Oxyhemoglobin VBG pH Oxyhemoglobin Sodium Potassium Chloride Carbon Dioxide BUN Creatinine Glucose POC Glucose 141 H 186 H Lactic Acid Calcium Ferritin AST Alkaline Phosphatase Magnesium Lactate Dehydrogenase Total Creatine Kinase CK-MB (CK-2) C-Reactive Protein Total Protein Albumin Troponin T HDL Cholesterol Urine WBC (Auto) Urine Creatinine Urine Total Protein Coronavirus (PCR) Crossmatch 06/14/20 06/14/20 06/14/20 16:07 18:16 23:51 WBC RBC Hgb Hct MCHC RDW Lymph % (Auto) [place] % (Auto) Eos % (Auto) Lymph # [place] # Lymph # (Auto) [place] # (Auto) Seg Neutrophils % Seg Neuts % (Manual) Lymphocytes % (Manual) Seg Neutrophils # Seg Neutrophils # Man Lymphocytes # (Manual) Monocytes % (Manual) Eosinophils % (Manual) Monocytes # (Manual) Eosinophils # (Manual) D-Dimer Heparin Anti-Xa Level 0.82 H ABG pH POC ABG pCO2 POC ABG pO2 ABG pO2 ABG HCO3 ABG O2 Saturation ABG Base Excess ABG Hemoglobin ABG Oxyhemoglobin VBG pH Oxyhemoglobin Sodium Potassium Chloride Carbon Dioxide BUN Creatinine Glucose POC Glucose 106 H 154 H Lactic Acid Calcium Ferritin AST Alkaline Phosphatase Magnesium Lactate Dehydrogenase Total Creatine Kinase CK-MB (CK-2) C-Reactive Protein Total Protein Albumin Troponin T HDL Cholesterol Urine WBC (Auto) Urine Creatinine Urine Total Protein Coronavirus (PCR) Crossmatch 06/15/20 06/15/20 06/15/20 04:24 04:24 05:59 WBC RBC 2.75 L Hgb 7.9 L Hct 24.0 L MCHC RDW 16.4 H Lymph % (Auto) 12.9 L [place] % (Auto) 8.7 H Eos % (Auto) 4.6 H Lymph # 1.1 L [place] # Lymph # (Auto) [place] # (Auto) Seg Neutrophils % 73.2 H Seg Neuts % (Manual) Lymphocytes % (Manual) Seg Neutrophils # Seg Neutrophils # Man Lymphocytes # (Manual) Monocytes % (Manual) Eosinophils % (Manual) Monocytes # (Manual) Eosinophils # (Manual) D-Dimer Heparin Anti-Xa Level ABG pH POC ABG pCO2 POC ABG pO2 ABG pO2 ABG HCO3 ABG O2 Saturation ABG Base Excess ABG Hemoglobin ABG Oxyhemoglobin VBG pH Oxyhemoglobin Sodium Potassium 3.4 L Chloride Carbon Dioxide BUN 55 H Creatinine 1.3 H Glucose 142 H POC Glucose 131 H Lactic Acid Calcium Ferritin AST Alkaline Phosphatase Magnesium Lactate Dehydrogenase Total Creatine Kinase CK-MB (CK-2) C-Reactive Protein Total Protein Albumin Troponin T HDL Cholesterol Urine WBC (Auto) Urine Creatinine Urine Total Protein Coronavirus (PCR) Crossmatch 06/15/20 06/15/20 06/16/20 12:33 17:07 00:22 WBC RBC Hgb Hct MCHC RDW Lymph % (Auto) [place] % (Auto) Eos % (Auto) Lymph # [place] # Lymph # (Auto) [place] # (Auto) Seg Neutrophils % Seg Neuts % (Manual) Lymphocytes % (Manual) Seg Neutrophils # Seg Neutrophils # Man Lymphocytes # (Manual) Monocytes % (Manual) Eosinophils % (Manual) Monocytes # (Manual) Eosinophils # (Manual) D-Dimer Heparin Anti-Xa Level 0.21 L ABG pH POC ABG pCO2 POC ABG pO2 ABG pO2 ABG HCO3 ABG O2 Saturation ABG Base Excess ABG Hemoglobin ABG Oxyhemoglobin VBG pH Oxyhemoglobin Sodium Potassium Chloride Carbon Dioxide BUN Creatinine Glucose POC Glucose 180 H 185 H Lactic Acid Calcium Ferritin AST Alkaline Phosphatase Magnesium Lactate Dehydrogenase Total Creatine Kinase CK-MB (CK-2) C-Reactive Protein Total Protein Albumin Troponin T HDL Cholesterol Urine WBC (Auto) Urine Creatinine Urine Total Protein Coronavirus (PCR) Crossmatch 06/16/20 06/16/20 06/16/20 01:45 08:06 09:15 WBC RBC Hgb Hct MCHC RDW Lymph % (Auto) [place] % (Auto) Eos % (Auto) Lymph # [place] # Lymph # (Auto) [place] # (Auto) Seg Neutrophils % Seg Neuts % (Manual) Lymphocytes % (Manual) Seg Neutrophils # Seg Neutrophils # Man Lymphocytes # (Manual) Monocytes % (Manual) Eosinophils % (Manual) Monocytes # (Manual) Eosinophils # (Manual) D-Dimer Heparin Anti-Xa Level ABG pH POC ABG pCO2 POC ABG pO2 ABG pO2 ABG HCO3 ABG O2 Saturation ABG Base Excess ABG Hemoglobin ABG Oxyhemoglobin VBG pH Oxyhemoglobin Sodium Potassium Chloride Carbon Dioxide BUN 49 H Creatinine Glucose 154 H POC Glucose 140 H 171 H Lactic Acid Calcium Ferritin AST Alkaline Phosphatase Magnesium Lactate Dehydrogenase Total Creatine Kinase CK-MB (CK-2) C-Reactive Protein Total Protein Albumin Troponin T HDL Cholesterol Urine WBC (Auto) Urine Creatinine Urine Total Protein Coronavirus (PCR) Crossmatch 06/16/20 06/16/20 06/16/20 10:46 12:33 17:54 WBC RBC Hgb Hct MCHC RDW Lymph % (Auto) [place] % (Auto) Eos % (Auto) Lymph # [place] # Lymph # (Auto) [place] # (Auto) Seg Neutrophils % Seg Neuts % (Manual) Lymphocytes % (Manual) Seg Neutrophils # Seg Neutrophils # Man Lymphocytes # (Manual) Monocytes % (Manual) Eosinophils % (Manual) Monocytes # (Manual) Eosinophils # (Manual) D-Dimer Heparin Anti-Xa Level 0.12 L ABG pH POC ABG pCO2 POC ABG pO2 ABG pO2 ABG HCO3 ABG O2 Saturation ABG Base Excess ABG Hemoglobin ABG Oxyhemoglobin VBG pH Oxyhemoglobin Sodium Potassium Chloride Carbon Dioxide BUN Creatinine Glucose POC Glucose 166 H 151 H Lactic Acid Calcium Ferritin AST Alkaline Phosphatase Magnesium Lactate Dehydrogenase Total Creatine Kinase CK-MB (CK-2) C-Reactive Protein Total Protein Albumin Troponin T HDL Cholesterol Urine WBC (Auto) Urine Creatinine Urine Total Protein Coronavirus (PCR) Crossmatch 06/16/20 06/17/20 06/17/20 18:47 00:00 02:19 WBC RBC Hgb Hct MCHC RDW Lymph % (Auto) [place] % (Auto) Eos % (Auto) Lymph # [place] # Lymph # (Auto) [place] # (Auto) Seg Neutrophils % Seg Neuts % (Manual) Lymphocytes % (Manual) Seg Neutrophils # Seg Neutrophils # Man Lymphocytes # (Manual) Monocytes % (Manual) Eosinophils % (Manual) Monocytes # (Manual) Eosinophils # (Manual) D-Dimer Heparin Anti-Xa Level 0.73 H 0.77 H ABG pH POC ABG pCO2 POC ABG pO2 ABG pO2 ABG HCO3 ABG O2 Saturation ABG Base Excess ABG Hemoglobin ABG Oxyhemoglobin VBG pH Oxyhemoglobin Sodium Potassium Chloride Carbon Dioxide BUN Creatinine Glucose POC Glucose 139 H Lactic Acid Calcium Ferritin AST Alkaline Phosphatase Magnesium Lactate Dehydrogenase Total Creatine Kinase CK-MB (CK-2) C-Reactive Protein Total Protein Albumin Troponin T HDL Cholesterol Urine WBC (Auto) Urine Creatinine Urine Total Protein Coronavirus (PCR) Crossmatch 06/17/20 06/17/20 06/17/20 06:07 11:42 16:43 WBC RBC Hgb Hct MCHC RDW Lymph % (Auto) [place] % (Auto) Eos % (Auto) Lymph # [place] # Lymph # (Auto) [place] # (Auto) Seg Neutrophils % Seg Neuts % (Manual) Lymphocytes % (Manual) Seg Neutrophils # Seg Neutrophils # Man Lymphocytes # (Manual) Monocytes % (Manual) Eosinophils % (Manual) Monocytes # (Manual) Eosinophils # (Manual) D-Dimer Heparin Anti-Xa Level 0.73 H ABG pH POC ABG pCO2 POC ABG pO2 ABG pO2 ABG HCO3 ABG O2 Saturation ABG Base Excess ABG Hemoglobin ABG Oxyhemoglobin VBG pH Oxyhemoglobin Sodium Potassium Chloride Carbon Dioxide BUN Creatinine Glucose POC Glucose 169 H 169 H Lactic Acid Calcium Ferritin AST Alkaline Phosphatase Magnesium Lactate Dehydrogenase Total Creatine Kinase CK-MB (CK-2) C-Reactive Protein Total Protein Albumin Troponin T HDL Cholesterol Urine WBC (Auto) Urine Creatinine Urine Total Protein Coronavirus (PCR) Crossmatch 06/17/20 06/17/20 06/17/20 18:18 23:08 23:16 WBC RBC Hgb Hct MCHC RDW Lymph % (Auto) [place] % (Auto) Eos % (Auto) Lymph # [place] # Lymph # (Auto) [place] # (Auto) Seg Neutrophils % Seg Neuts % (Manual) Lymphocytes % (Manual) Seg Neutrophils # Seg Neutrophils # Man Lymphocytes # (Manual) Monocytes % (Manual) Eosinophils % (Manual) Monocytes # (Manual) Eosinophils # (Manual) D-Dimer Heparin Anti-Xa Level 0.71 H ABG pH POC ABG pCO2 POC ABG pO2 ABG pO2 ABG HCO3 ABG O2 Saturation ABG Base Excess ABG Hemoglobin ABG Oxyhemoglobin VBG pH Oxyhemoglobin Sodium Potassium Chloride Carbon Dioxide BUN Creatinine Glucose POC Glucose 159 H 134 H Lactic Acid Calcium Ferritin AST Alkaline Phosphatase Magnesium Lactate Dehydrogenase Total Creatine Kinase CK-MB (CK-2) C-Reactive Protein Total Protein Albumin Troponin T HDL Cholesterol Urine WBC (Auto) Urine Creatinine Urine Total Protein Coronavirus (PCR) Crossmatch 06/18/20 06/18/20 06/18/20 04:42 05:52 11:50 WBC RBC Hgb Hct MCHC RDW Lymph % (Auto) [place] % (Auto) Eos % (Auto) Lymph # [place] # Lymph # (Auto) [place] # (Auto) Seg Neutrophils % Seg Neuts % (Manual) Lymphocytes % (Manual) Seg Neutrophils # Seg Neutrophils # Man Lymphocytes # (Manual) Monocytes % (Manual) Eosinophils % (Manual) Monocytes # (Manual) Eosinophils # (Manual) D-Dimer Heparin Anti-Xa Level ABG pH POC ABG pCO2 POC ABG pO2 ABG pO2 ABG HCO3 ABG O2 Saturation ABG Base Excess ABG Hemoglobin ABG Oxyhemoglobin VBG pH Oxyhemoglobin Sodium Potassium Chloride Carbon Dioxide BUN 44 H Creatinine Glucose 115 H POC Glucose 171 H 167 H Lactic Acid Calcium Ferritin AST Alkaline Phosphatase Magnesium Lactate Dehydrogenase Total Creatine Kinase CK-MB (CK-2) C-Reactive Protein Total Protein Albumin Troponin T HDL Cholesterol Urine WBC (Auto) Urine Creatinine Urine Total Protein Coronavirus (PCR) Crossmatch 06/18/20 06/19/20 06/19/20 23:46 05:48 07:52 WBC RBC Hgb Hct MCHC RDW Lymph % (Auto) [place] % (Auto) Eos % (Auto) Lymph # [place] # Lymph # (Auto) [place] # (Auto) Seg Neutrophils % Seg Neuts % (Manual) Lymphocytes % (Manual) Seg Neutrophils # Seg Neutrophils # Man Lymphocytes # (Manual) Monocytes % (Manual) Eosinophils % (Manual) Monocytes # (Manual) Eosinophils # (Manual) D-Dimer Heparin Anti-Xa Level ABG pH POC ABG pCO2 POC ABG pO2 ABG pO2 ABG HCO3 ABG O2 Saturation ABG Base Excess ABG Hemoglobin ABG Oxyhemoglobin VBG pH Oxyhemoglobin Sodium Potassium Chloride Carbon Dioxide BUN Creatinine Glucose POC Glucose 130 H 207 H 175 H Lactic Acid Calcium Ferritin AST Alkaline Phosphatase Magnesium Lactate Dehydrogenase Total Creatine Kinase CK-MB (CK-2) C-Reactive Protein Total Protein Albumin Troponin T HDL Cholesterol Urine WBC (Auto) Urine Creatinine Urine Total Protein Coronavirus (PCR) Crossmatch 06/19/20 06/19/20 06/20/20 11:42 22:54 05:17 WBC RBC Hgb Hct MCHC RDW Lymph % (Auto) [place] % (Auto) Eos % (Auto) Lymph # [place] # Lymph # (Auto) [place] # (Auto) Seg Neutrophils % Seg Neuts % (Manual) Lymphocytes % (Manual) Seg Neutrophils # Seg Neutrophils # Man Lymphocytes # (Manual) Monocytes % (Manual) Eosinophils % (Manual) Monocytes # (Manual) Eosinophils # (Manual) D-Dimer Heparin Anti-Xa Level ABG pH POC ABG pCO2 POC ABG pO2 ABG pO2 ABG HCO3 ABG O2 Saturation ABG Base Excess ABG Hemoglobin ABG Oxyhemoglobin VBG pH Oxyhemoglobin Sodium Potassium Chloride Carbon Dioxide BUN Creatinine Glucose POC Glucose 166 H 135 H 218 H Lactic Acid Calcium Ferritin AST Alkaline Phosphatase Magnesium Lactate Dehydrogenase Total Creatine Kinase CK-MB (CK-2) C-Reactive Protein Total Protein Albumin Troponin T HDL Cholesterol Urine WBC (Auto) Urine Creatinine Urine Total Protein Coronavirus (PCR) Crossmatch 06/20/20 06/20/20 06/20/20 12:04 16:25 16:35 WBC RBC Hgb Hct MCHC RDW Lymph % (Auto) [place] % (Auto) Eos % (Auto) Lymph # [place] # Lymph # (Auto) [place] # (Auto) Seg Neutrophils % Seg Neuts % (Manual) Lymphocytes % (Manual) Seg Neutrophils # Seg Neutrophils # Man Lymphocytes # (Manual) Monocytes % (Manual) Eosinophils % (Manual) Monocytes # (Manual) Eosinophils # (Manual) D-Dimer Heparin Anti-Xa Level ABG pH POC ABG pCO2 POC ABG pO2 ABG pO2 59.6 L ABG HCO3 28.7 H ABG O2 Saturation 93.5 L ABG Base Excess 3.4 H ABG Hemoglobin 7.2 L ABG Oxyhemoglobin VBG pH Oxyhemoglobin 91.3 L Sodium Potassium Chloride Carbon Dioxide BUN Creatinine Glucose POC Glucose 194 H 137 H Lactic Acid Calcium Ferritin AST Alkaline Phosphatase Magnesium Lactate Dehydrogenase Total Creatine Kinase CK-MB (CK-2) C-Reactive Protein Total Protein Albumin Troponin T HDL Cholesterol Urine WBC (Auto) Urine Creatinine Urine Total Protein Coronavirus (PCR) Crossmatch 06/20/20 06/21/20 06/21/20 23:59 06:25 12:01 WBC RBC Hgb Hct MCHC RDW Lymph % (Auto) [place] % (Auto) Eos % (Auto) Lymph # [place] # Lymph # (Auto) [place] # (Auto) Seg Neutrophils % Seg Neuts % (Manual) Lymphocytes % (Manual) Seg Neutrophils # Seg Neutrophils # Man Lymphocytes # (Manual) Monocytes % (Manual) Eosinophils % (Manual) Monocytes # (Manual) Eosinophils # (Manual) D-Dimer Heparin Anti-Xa Level ABG pH POC ABG pCO2 POC ABG pO2 ABG pO2 ABG HCO3 ABG O2 Saturation ABG Base Excess ABG Hemoglobin ABG Oxyhemoglobin VBG pH Oxyhemoglobin Sodium Potassium Chloride Carbon Dioxide BUN Creatinine Glucose POC Glucose 156 H 177 H 195 H Lactic Acid Calcium Ferritin AST Alkaline Phosphatase Magnesium Lactate Dehydrogenase Total Creatine Kinase CK-MB (CK-2) C-Reactive Protein Total Protein Albumin Troponin T HDL Cholesterol Urine WBC (Auto) Urine Creatinine Urine Total Protein Coronavirus (PCR) Crossmatch 06/21/20 06/21/20 06/22/20 17:04 21:51 05:06 WBC RBC Hgb Hct MCHC RDW Lymph % (Auto) [place] % (Auto) Eos % (Auto) Lymph # [place] # Lymph # (Auto) [place] # (Auto) Seg Neutrophils % Seg Neuts % (Manual) Lymphocytes % (Manual) Seg Neutrophils # Seg Neutrophils # Man Lymphocytes # (Manual) Monocytes % (Manual) Eosinophils % (Manual) Monocytes # (Manual) Eosinophils # (Manual) D-Dimer Heparin Anti-Xa Level ABG pH POC ABG pCO2 POC ABG pO2 ABG pO2 ABG HCO3 ABG O2 Saturation ABG Base Excess ABG Hemoglobin ABG Oxyhemoglobin VBG pH Oxyhemoglobin Sodium Potassium Chloride Carbon Dioxide BUN Creatinine Glucose POC Glucose 156 H 154 H 167 H Lactic Acid Calcium Ferritin AST Alkaline Phosphatase Magnesium Lactate Dehydrogenase Total Creatine Kinase CK-MB (CK-2) C-Reactive Protein Total Protein Albumin Troponin T HDL Cholesterol Urine WBC (Auto) Urine Creatinine Urine Total Protein Coronavirus (PCR) Crossmatch 06/22/20 06/22/20 06/22/20 11:20 15:27 16:58 WBC RBC Hgb Hct MCHC RDW Lymph % (Auto) [place] % (Auto) Eos % (Auto) Lymph # [place] # Lymph # (Auto) [place] # (Auto) Seg Neutrophils % Seg Neuts % (Manual) Lymphocytes % (Manual) Seg Neutrophils # Seg Neutrophils # Man Lymphocytes # (Manual) Monocytes % (Manual) Eosinophils % (Manual) Monocytes # (Manual) Eosinophils # (Manual) D-Dimer Heparin Anti-Xa Level ABG pH 7.206 L POC ABG pCO2 79.9 H POC ABG pO2 ABG pO2 ABG HCO3 ABG O2 Saturation ABG Base Excess ABG Hemoglobin 8.3 L ABG Oxyhemoglobin VBG pH Oxyhemoglobin Sodium Potassium Chloride Carbon Dioxide BUN Creatinine Glucose POC Glucose 181 H 230 H Lactic Acid Calcium Ferritin AST Alkaline Phosphatase Magnesium Lactate Dehydrogenase Total Creatine Kinase CK-MB (CK-2) C-Reactive Protein Total Protein Albumin Troponin T HDL Cholesterol Urine WBC (Auto) Urine Creatinine Urine Total Protein Coronavirus (PCR) Crossmatch 06/22/20 06/23/20 06/23/20 22:26 05:49 05:49 WBC RBC 2.58 L Hgb 7.4 L Hct 23.2 L MCHC RDW 17.0 H Lymph % (Auto) [place] % (Auto) 11.2 H Eos % (Auto) Lymph # 1.0 L [place] # Lymph # (Auto) [place] # (Auto) Seg Neutrophils % Seg Neuts % (Manual) Lymphocytes % (Manual) Seg Neutrophils # Seg Neutrophils # Man Lymphocytes # (Manual) Monocytes % (Manual) Eosinophils % (Manual) Monocytes # (Manual) Eosinophils # (Manual) D-Dimer Heparin Anti-Xa Level ABG pH POC ABG pCO2 POC ABG pO2 ABG pO2 ABG HCO3 ABG O2 Saturation ABG Base Excess ABG Hemoglobin ABG Oxyhemoglobin VBG pH Oxyhemoglobin Sodium Potassium Chloride Carbon Dioxide BUN 68 H Creatinine 2.4 H Glucose 198 H POC Glucose 195 H Lactic Acid Calcium Ferritin AST Alkaline Phosphatase Magnesium Lactate Dehydrogenase Total Creatine Kinase CK-MB (CK-2) C-Reactive Protein Total Protein Albumin Troponin T HDL Cholesterol Urine WBC (Auto) Urine Creatinine Urine Total Protein Coronavirus (PCR) Crossmatch 06/23/20 06/23/20 06/23/20 05:50 12:29 12:34 WBC RBC Hgb Hct MCHC RDW Lymph % (Auto) [place] % (Auto) Eos % (Auto) Lymph # [place] # Lymph # (Auto) [place] # (Auto) Seg Neutrophils % Seg Neuts % (Manual) Lymphocytes % (Manual) Seg Neutrophils # Seg Neutrophils # Man Lymphocytes # (Manual) Monocytes % (Manual) Eosinophils % (Manual) Monocytes # (Manual) Eosinophils # (Manual) D-Dimer Heparin Anti-Xa Level ABG pH POC ABG pCO2 54.7 H POC ABG pO2 68.8 L ABG pO2 ABG HCO3 ABG O2 Saturation ABG Base Excess ABG Hemoglobin 9.8 L ABG Oxyhemoglobin 92.6 L VBG pH Oxyhemoglobin Sodium Potassium Chloride Carbon Dioxide BUN Creatinine Glucose POC Glucose 202 H 218 H Lactic Acid Calcium Ferritin AST Alkaline Phosphatase Magnesium Lactate Dehydrogenase Total Creatine Kinase CK-MB (CK-2) C-Reactive Protein Total Protein Albumin Troponin T HDL Cholesterol Urine WBC (Auto) Urine Creatinine Urine Total Protein Coronavirus (PCR) Crossmatch 06/23/20 06/23/20 06/24/20 16:02 22:22 01:06 WBC RBC Hgb Hct MCHC RDW Lymph % (Auto) [place] % (Auto) Eos % (Auto) Lymph # [place] # Lymph # (Auto) [place] # (Auto) Seg Neutrophils % Seg Neuts % (Manual) Lymphocytes % (Manual) Seg Neutrophils # Seg Neutrophils # Man Lymphocytes # (Manual) Monocytes % (Manual) Eosinophils % (Manual) Monocytes # (Manual) Eosinophils # (Manual) D-Dimer Heparin Anti-Xa Level ABG pH POC ABG pCO2 POC ABG pO2 ABG pO2 ABG HCO3 ABG O2 Saturation ABG Base Excess ABG Hemoglobin ABG Oxyhemoglobin VBG pH Oxyhemoglobin Sodium Potassium Chloride Carbon Dioxide BUN Creatinine Glucose POC Glucose 190 H 166 H 171 H Lactic Acid Calcium Ferritin AST Alkaline Phosphatase Magnesium Lactate Dehydrogenase Total Creatine Kinase CK-MB (CK-2) C-Reactive Protein Total Protein Albumin Troponin T HDL Cholesterol Urine WBC (Auto) Urine Creatinine Urine Total Protein Coronavirus (PCR) Crossmatch 06/24/20 06/24/20 06/24/20 04:48 05:35 11:48 WBC RBC Hgb Hct MCHC RDW Lymph % (Auto) [place] % (Auto) Eos % (Auto) Lymph # [place] # Lymph # (Auto) [place] # (Auto) Seg Neutrophils % Seg Neuts % (Manual) Lymphocytes % (Manual) Seg Neutrophils # Seg Neutrophils # Man Lymphocytes # (Manual) Monocytes % (Manual) Eosinophils % (Manual) Monocytes # (Manual) Eosinophils # (Manual) D-Dimer Heparin Anti-Xa Level ABG pH POC ABG pCO2 POC ABG pO2 ABG pO2 ABG HCO3 ABG O2 Saturation ABG Base Excess ABG Hemoglobin ABG Oxyhemoglobin VBG pH Oxyhemoglobin Sodium Potassium Chloride Carbon Dioxide BUN 75 H Creatinine 2.6 H Glucose 179 H POC Glucose 172 H 153 H Lactic Acid Calcium Ferritin AST Alkaline Phosphatase Magnesium Lactate Dehydrogenase Total Creatine Kinase CK-MB (CK-2) C-Reactive Protein Total Protein Albumin Troponin T HDL Cholesterol Urine WBC (Auto) Urine Creatinine Urine Total Protein Coronavirus (PCR) Crossmatch 06/24/20 06/24/20 06/25/20 16:38 21:52 12:00 WBC RBC Hgb Hct MCHC RDW Lymph % (Auto) [place] % (Auto) Eos % (Auto) Lymph # [place] # Lymph # (Auto) [place] # (Auto) Seg Neutrophils % Seg Neuts % (Manual) Lymphocytes % (Manual) Seg Neutrophils # Seg Neutrophils # Man Lymphocytes # (Manual) Monocytes % (Manual) Eosinophils % (Manual) Monocytes # (Manual) Eosinophils # (Manual) D-Dimer Heparin Anti-Xa Level ABG pH POC ABG pCO2 POC ABG pO2 ABG pO2 ABG HCO3 ABG O2 Saturation ABG Base Excess ABG Hemoglobin ABG Oxyhemoglobin VBG pH Oxyhemoglobin Sodium Potassium Chloride Carbon Dioxide BUN Creatinine Glucose POC Glucose 123 H 115 H 203 H Lactic Acid Calcium Ferritin AST Alkaline Phosphatase Magnesium Lactate Dehydrogenase Total Creatine Kinase CK-MB (CK-2) C-Reactive Protein Total Protein Albumin Troponin T HDL Cholesterol Urine WBC (Auto) Urine Creatinine Urine Total Protein Coronavirus (PCR) Crossmatch 06/25/20 06/25/20 06/25/20 15:43 16:37 23:02 WBC RBC Hgb Hct MCHC RDW Lymph % (Auto) [place] % (Auto) Eos % (Auto) Lymph # [place] # Lymph # (Auto) [place] # (Auto) Seg Neutrophils % Seg Neuts % (Manual) Lymphocytes % (Manual) Seg Neutrophils # Seg Neutrophils # Man Lymphocytes # (Manual) Monocytes % (Manual) Eosinophils % (Manual) Monocytes # (Manual) Eosinophils # (Manual) D-Dimer Heparin Anti-Xa Level ABG pH POC ABG pCO2 POC ABG pO2 ABG pO2 ABG HCO3 ABG O2 Saturation ABG Base Excess ABG Hemoglobin ABG Oxyhemoglobin VBG pH Oxyhemoglobin Sodium Potassium Chloride Carbon Dioxide BUN 71 H Creatinine 1.8 H Glucose 170 H POC Glucose 191 H 126 H Lactic Acid Calcium 8.2 L Ferritin AST Alkaline Phosphatase Magnesium Lactate Dehydrogenase Total Creatine Kinase CK-MB (CK-2) C-Reactive Protein Total Protein Albumin Troponin T HDL Cholesterol Urine WBC (Auto) Urine Creatinine Urine Total Protein Coronavirus (PCR) Crossmatch 06/26/20 06/26/20 06/26/20 06:34 06:34 09:27 WBC RBC 2.41 L Hgb 6.9 L Hct 21.5 L MCHC RDW 16.7 H Lymph % (Auto) 10.9 L [place] % (Auto) 9.6 H Eos % (Auto) Lymph # 0.7 L [place] # Lymph # (Auto) [place] # (Auto) Seg Neutrophils % 75.4 H Seg Neuts % (Manual) Lymphocytes % (Manual) Seg Neutrophils # Seg Neutrophils # Man Lymphocytes # (Manual) Monocytes % (Manual) Eosinophils % (Manual) Monocytes # (Manual) Eosinophils # (Manual) D-Dimer Heparin Anti-Xa Level ABG pH POC ABG pCO2 POC ABG pO2 ABG pO2 ABG HCO3 ABG O2 Saturation ABG Base Excess ABG Hemoglobin ABG Oxyhemoglobin VBG pH Oxyhemoglobin Sodium Potassium Chloride Carbon Dioxide BUN 77 H Creatinine 1.9 H Glucose 190 H POC Glucose Lactic Acid Calcium Ferritin AST Alkaline Phosphatase Magnesium Lactate Dehydrogenase Total Creatine Kinase CK-MB (CK-2) C-Reactive Protein Total Protein Albumin Troponin T HDL Cholesterol Urine WBC (Auto) Urine Creatinine Urine Total Protein Coronavirus (PCR) Crossmatch See Detail 06/26/20 06/26/20 06/26/20 12:15 16:28 17:28 WBC RBC Hgb Hct MCHC RDW Lymph % (Auto) [place] % (Auto) Eos % (Auto) Lymph # [place] # Lymph # (Auto) [place] # (Auto) Seg Neutrophils % Seg Neuts % (Manual) Lymphocytes % (Manual) Seg Neutrophils # Seg Neutrophils # Man Lymphocytes # (Manual) Monocytes % (Manual) Eosinophils % (Manual) Monocytes # (Manual) Eosinophils # (Manual) D-Dimer Heparin Anti-Xa Level ABG pH POC ABG pCO2 POC ABG pO2 ABG pO2 ABG HCO3 ABG O2 Saturation ABG Base Excess ABG Hemoglobin ABG Oxyhemoglobin VBG pH Oxyhemoglobin Sodium Potassium Chloride Carbon Dioxide BUN Creatinine Glucose POC Glucose 187 H 149 H 189 H Lactic Acid Calcium Ferritin AST Alkaline Phosphatase Magnesium Lactate Dehydrogenase Total Creatine Kinase CK-MB (CK-2) C-Reactive Protein Total Protein Albumin Troponin T HDL Cholesterol Urine WBC (Auto) Urine Creatinine Urine Total Protein Coronavirus (PCR) Crossmatch 06/26/20 06/26/20 06/26/20 18:30 18:30 18:30 WBC RBC 2.87 L Hgb 8.2 L Hct 25.9 L MCHC RDW 17.8 H Lymph % (Auto) [place] % (Auto) Eos % (Auto) Lymph # [place] # Lymph # (Auto) [place] # (Auto) Seg Neutrophils % Seg Neuts % (Manual) 83.0 H Lymphocytes % (Manual) 8.0 L Seg Neutrophils # Seg Neutrophils # Man Lymphocytes # (Manual) 0.6 L Monocytes % (Manual) Eosinophils % (Manual) Monocytes # (Manual) Eosinophils # (Manual) D-Dimer Heparin Anti-Xa Level ABG pH POC ABG pCO2 POC ABG pO2 ABG pO2 ABG HCO3 ABG O2 Saturation ABG Base Excess ABG Hemoglobin ABG Oxyhemoglobin VBG pH Oxyhemoglobin Sodium Potassium Chloride Carbon Dioxide BUN 80 H Creatinine 2.1 H Glucose 260 H POC Glucose Lactic Acid 4.30 H* Calcium 8.3 L Ferritin AST Alkaline Phosphatase Magnesium Lactate Dehydrogenase Total Creatine Kinase CK-MB (CK-2) C-Reactive Protein Total Protein Albumin Troponin T HDL Cholesterol Urine WBC (Auto) Urine Creatinine Urine Total Protein Coronavirus (PCR) Crossmatch 06/26/20 06/27/20 06/27/20 18:50 01:00 04:29 WBC RBC Hgb Hct MCHC RDW Lymph % (Auto) [place] % (Auto) Eos % (Auto) Lymph # [place] # Lymph # (Auto) [place] # (Auto) Seg Neutrophils % Seg Neuts % (Manual) Lymphocytes % (Manual) Seg Neutrophils # Seg Neutrophils # Man Lymphocytes # (Manual) Monocytes % (Manual) Eosinophils % (Manual) Monocytes # (Manual) Eosinophils # (Manual) D-Dimer Heparin Anti-Xa Level ABG pH 7.296 L POC ABG pCO2 POC ABG pO2 ABG pO2 116.5 H 200.5 H ABG HCO3 28.4 H ABG O2 Saturation 99.3 H ABG Base Excess 3.7 H ABG Hemoglobin 5.6 L ABG Oxyhemoglobin VBG pH Oxyhemoglobin Sodium Potassium Chloride Carbon Dioxide BUN Creatinine Glucose POC Glucose 123 H Lactic Acid Calcium Ferritin AST Alkaline Phosphatase Magnesium Lactate Dehydrogenase Total Creatine Kinase CK-MB (CK-2) C-Reactive Protein Total Protein Albumin Troponin T HDL Cholesterol Urine WBC (Auto) Urine Creatinine Urine Total Protein Coronavirus (PCR) Crossmatch 06/27/20 06/27/20 06/27/20 05:00 05:00 05:00 WBC RBC 2.75 L Hgb 7.9 L Hct 24.3 L MCHC RDW 17.1 H Lymph % (Auto) 8.5 L [place] % (Auto) 12.6 H Eos % (Auto) Lymph # 0.7 L [place] # 1.0 H Lymph # (Auto) [place] # (Auto) Seg Neutrophils % 77.5 H Seg Neuts % (Manual) Lymphocytes % (Manual) Seg Neutrophils # Seg Neutrophils # Man Lymphocytes # (Manual) Monocytes % (Manual) Eosinophils % (Manual) Monocytes # (Manual) Eosinophils # (Manual) D-Dimer Heparin Anti-Xa Level ABG pH POC ABG pCO2 POC ABG pO2 ABG pO2 ABG HCO3 ABG O2 Saturation ABG Base Excess ABG Hemoglobin ABG Oxyhemoglobin VBG pH Oxyhemoglobin Sodium Potassium Chloride Carbon Dioxide BUN 80 H Creatinine 2.0 H Glucose 129 H POC Glucose Lactic Acid 0.60 L Calcium 7.9 L Ferritin AST Alkaline Phosphatase Magnesium Lactate Dehydrogenase Total Creatine Kinase CK-MB (CK-2) C-Reactive Protein Total Protein Albumin Troponin T HDL Cholesterol Urine WBC (Auto) Urine Creatinine Urine Total Protein Coronavirus (PCR) Crossmatch 06/27/20 06/27/20 06/27/20 05:23 13:46 17:25 WBC RBC Hgb Hct MCHC RDW Lymph % (Auto) [place] % (Auto) Eos % (Auto) Lymph # [place] # Lymph # (Auto) [place] # (Auto) Seg Neutrophils % Seg Neuts % (Manual) Lymphocytes % (Manual) Seg Neutrophils # Seg Neutrophils # Man Lymphocytes # (Manual) Monocytes % (Manual) Eosinophils % (Manual) Monocytes # (Manual) Eosinophils # (Manual) D-Dimer Heparin Anti-Xa Level ABG pH POC ABG pCO2 POC ABG pO2 ABG pO2 ABG HCO3 ABG O2 Saturation ABG Base Excess ABG Hemoglobin ABG Oxyhemoglobin VBG pH Oxyhemoglobin Sodium Potassium Chloride Carbon Dioxide BUN Creatinine Glucose POC Glucose 109 H 158 H 162 H Lactic Acid Calcium Ferritin AST Alkaline Phosphatase Magnesium Lactate Dehydrogenase Total Creatine Kinase CK-MB (CK-2) C-Reactive Protein Total Protein Albumin Troponin T HDL Cholesterol Urine WBC (Auto) Urine Creatinine Urine Total Protein Coronavirus (PCR) Crossmatch 06/27/20 06/27/20 06/28/20 18:43 23:46 04:05 WBC RBC Hgb 7.7 L Hct 22.1 L MCHC RDW Lymph % (Auto) [place] % (Auto) Eos % (Auto) Lymph # [place] # Lymph # (Auto) [place] # (Auto) Seg Neutrophils % Seg Neuts % (Manual) Lymphocytes % (Manual) Seg Neutrophils # Seg Neutrophils # Man Lymphocytes # (Manual) Monocytes % (Manual) Eosinophils % (Manual) Monocytes # (Manual) Eosinophils # (Manual) D-Dimer Heparin Anti-Xa Level ABG pH POC ABG pCO2 POC ABG pO2 ABG pO2 102.7 H ABG HCO3 28.7 H ABG O2 Saturation ABG Base Excess 3.7 H ABG Hemoglobin ABG Oxyhemoglobin VBG pH Oxyhemoglobin Sodium Potassium Chloride Carbon Dioxide BUN Creatinine Glucose POC Glucose 142 H Lactic Acid Calcium Ferritin AST Alkaline Phosphatase Magnesium Lactate Dehydrogenase Total Creatine Kinase CK-MB (CK-2) C-Reactive Protein Total Protein Albumin Troponin T HDL Cholesterol Urine WBC (Auto) Urine Creatinine Urine Total Protein Coronavirus (PCR) Crossmatch 06/28/20 06/28/20 06/28/20 09:47 09:47 12:02 WBC RBC 2.53 L Hgb 7.4 L Hct 22.2 L MCHC RDW 16.8 H Lymph % (Auto) [place] % (Auto) 13.5 H Eos % (Auto) Lymph # 1.1 L [place] # 1.0 H Lymph # (Auto) [place] # (Auto) Seg Neutrophils % Seg Neuts % (Manual) Lymphocytes % (Manual) Seg Neutrophils # Seg Neutrophils # Man Lymphocytes # (Manual) Monocytes % (Manual) Eosinophils % (Manual) Monocytes # (Manual) Eosinophils # (Manual) D-Dimer Heparin Anti-Xa Level ABG pH POC ABG pCO2 POC ABG pO2 ABG pO2 ABG HCO3 ABG O2 Saturation ABG Base Excess ABG Hemoglobin ABG Oxyhemoglobin VBG pH Oxyhemoglobin Sodium Potassium Chloride Carbon Dioxide BUN 80 H Creatinine 1.5 H Glucose 139 H POC Glucose 169 H Lactic Acid Calcium 7.9 L Ferritin AST Alkaline Phosphatase Magnesium Lactate Dehydrogenase Total Creatine Kinase CK-MB (CK-2) C-Reactive Protein Total Protein 5.0 L Albumin 2.1 L Troponin T HDL Cholesterol Urine WBC (Auto) Urine Creatinine Urine Total Protein Coronavirus (PCR) Crossmatch 06/28/20 06/28/20 06/28/20 12:30 12:30 17:24 WBC RBC 2.38 L Hgb 7.3 L Hct 20.9 L MCHC 35 H RDW 16.7 H Lymph % (Auto) [place] % (Auto) Eos % (Auto) Lymph # [place] # Lymph # (Auto) [place] # (Auto) Seg Neutrophils % Seg Neuts % (Manual) Lymphocytes % (Manual) Seg Neutrophils # Seg Neutrophils # Man Lymphocytes # (Manual) Monocytes % (Manual) Eosinophils % (Manual) Monocytes # (Manual) Eosinophils # (Manual) D-Dimer Heparin Anti-Xa Level ABG pH POC ABG pCO2 POC ABG pO2 ABG pO2 ABG HCO3 ABG O2 Saturation ABG Base Excess ABG Hemoglobin ABG Oxyhemoglobin VBG pH Oxyhemoglobin Sodium Potassium Chloride Carbon Dioxide BUN 74 H Creatinine 1.5 H Glucose 143 H POC Glucose 173 H Lactic Acid Calcium 7.5 L Ferritin AST Alkaline Phosphatase Magnesium Lactate Dehydrogenase Total Creatine Kinase CK-MB (CK-2) C-Reactive Protein Total Protein Albumin Troponin T HDL Cholesterol Urine WBC (Auto) Urine Creatinine Urine Total Protein Coronavirus (PCR) Crossmatch 06/29/20 06/29/20 06/29/20 00:02 03:54 04:38 WBC RBC 2.55 L Hgb 7.3 L Hct 22.4 L MCHC RDW 16.4 H Lymph % (Auto) 13.3 L [place] % (Auto) 12.5 H Eos % (Auto) Lymph # 1.1 L [place] # 1.0 H Lymph # (Auto) [place] # (Auto) Seg Neutrophils % Seg Neuts % (Manual) Lymphocytes % (Manual) Seg Neutrophils # Seg Neutrophils # Man Lymphocytes # (Manual) Monocytes % (Manual) Eosinophils % (Manual) Monocytes # (Manual) Eosinophils # (Manual) D-Dimer Heparin Anti-Xa Level ABG pH POC ABG pCO2 POC ABG pO2 ABG pO2 ABG HCO3 26.9 H ABG O2 Saturation ABG Base Excess ABG Hemoglobin 6.9 L ABG Oxyhemoglobin VBG pH Oxyhemoglobin Sodium Potassium Chloride Carbon Dioxide BUN Creatinine Glucose POC Glucose 142 H Lactic Acid Calcium Ferritin AST Alkaline Phosphatase Magnesium Lactate Dehydrogenase Total Creatine Kinase CK-MB (CK-2) C-Reactive Protein Total Protein Albumin Troponin T HDL Cholesterol Urine WBC (Auto) Urine Creatinine Urine Total Protein Coronavirus (PCR) Crossmatch 06/29/20 06/29/20 06/29/20 04:38 05:38 12:25 WBC RBC Hgb Hct MCHC RDW Lymph % (Auto) [place] % (Auto) Eos % (Auto) Lymph # [place] # Lymph # (Auto) [place] # (Auto) Seg Neutrophils % Seg Neuts % (Manual) Lymphocytes % (Manual) Seg Neutrophils # Seg Neutrophils # Man Lymphocytes # (Manual) Monocytes % (Manual) Eosinophils % (Manual) Monocytes # (Manual) Eosinophils # (Manual) D-Dimer Heparin Anti-Xa Level ABG pH POC ABG pCO2 POC ABG pO2 ABG pO2 ABG HCO3 ABG O2 Saturation ABG Base Excess ABG Hemoglobin ABG Oxyhemoglobin VBG pH Oxyhemoglobin Sodium Potassium Chloride 107.8 H Carbon Dioxide BUN 72 H Creatinine 1.4 H Glucose 127 H POC Glucose 122 H 138 H Lactic Acid Calcium 7.4 L Ferritin AST Alkaline Phosphatase Magnesium Lactate Dehydrogenase Total Creatine Kinase CK-MB (CK-2) C-Reactive Protein Total Protein Albumin Troponin T HDL Cholesterol Urine WBC (Auto) Urine Creatinine Urine Total Protein Coronavirus (PCR) Crossmatch 06/29/20 06/29/20 06/29/20 14:45 14:45 14:45 WBC RBC Hgb Hct MCHC RDW Lymph % (Auto) [place] % (Auto) Eos % (Auto) Lymph # [place] # Lymph # (Auto) [place] # (Auto) Seg Neutrophils % Seg Neuts % (Manual) Lymphocytes % (Manual) Seg Neutrophils # Seg Neutrophils # Man Lymphocytes # (Manual) Monocytes % (Manual) Eosinophils % (Manual) Monocytes # (Manual) Eosinophils # (Manual) D-Dimer 2310.15 H Heparin Anti-Xa Level ABG pH POC ABG pCO2 POC ABG pO2 ABG pO2 ABG HCO3 ABG O2 Saturation ABG Base Excess ABG Hemoglobin ABG Oxyhemoglobin VBG pH Oxyhemoglobin Sodium Potassium Chloride Carbon Dioxide BUN Creatinine Glucose POC Glucose Lactic Acid Calcium Ferritin 223.6 H AST Alkaline Phosphatase Magnesium Lactate Dehydrogenase 367 H Total Creatine Kinase CK-MB (CK-2) C-Reactive Protein 3.60 H Total Protein Albumin Troponin T HDL Cholesterol Urine WBC (Auto) Urine Creatinine Urine Total Protein Coronavirus (PCR) Crossmatch 06/29/20 06/29/20 06/29/20 18:27 23:35 Unknown WBC RBC Hgb Hct MCHC RDW Lymph % (Auto) [place] % (Auto) Eos % (Auto) Lymph # [place] # Lymph # (Auto) [place] # (Auto) Seg Neutrophils % Seg Neuts % (Manual) Lymphocytes % (Manual) Seg Neutrophils # Seg Neutrophils # Man Lymphocytes # (Manual) Monocytes % (Manual) Eosinophils % (Manual) Monocytes # (Manual) Eosinophils # (Manual) D-Dimer Heparin Anti-Xa Level ABG pH POC ABG pCO2 POC ABG pO2 ABG pO2 ABG HCO3 ABG O2 Saturation ABG Base Excess ABG Hemoglobin ABG Oxyhemoglobin VBG pH Oxyhemoglobin Sodium Potassium Chloride Carbon Dioxide BUN Creatinine Glucose POC Glucose 112 H 140 H Lactic Acid Calcium Ferritin AST Alkaline Phosphatase Magnesium Lactate Dehydrogenase Total Creatine Kinase CK-MB (CK-2) C-Reactive Protein Total Protein Albumin Troponin T HDL Cholesterol Urine WBC (Auto) Urine Creatinine Urine Total Protein Coronavirus (PCR) Positive A Crossmatch 06/30/20 06/30/20 06/30/20 04:10 04:10 06:09 WBC RBC 2.44 L Hgb 7.1 L Hct 21.5 L MCHC RDW 16.6 H Lymph % (Auto) 11.0 L [place] % (Auto) 10.8 H Eos % (Auto) Lymph # 0.9 L [place] # 0.9 H Lymph # (Auto) [place] # (Auto) Seg Neutrophils % 73.7 H Seg Neuts % (Manual) Lymphocytes % (Manual) Seg Neutrophils # Seg Neutrophils # Man Lymphocytes # (Manual) Monocytes % (Manual) Eosinophils % (Manual) Monocytes # (Manual) Eosinophils # (Manual) D-Dimer Heparin Anti-Xa Level ABG pH POC ABG pCO2 POC ABG pO2 ABG pO2 ABG HCO3 ABG O2 Saturation ABG Base Excess ABG Hemoglobin ABG Oxyhemoglobin VBG pH Oxyhemoglobin Sodium Potassium Chloride 109.1 H Carbon Dioxide BUN 74 H Creatinine 1.3 H Glucose 191 H POC Glucose 187 H Lactic Acid Calcium 7.8 L Ferritin AST Alkaline Phosphatase Magnesium Lactate Dehydrogenase Total Creatine Kinase CK-MB (CK-2) C-Reactive Protein Total Protein Albumin Troponin T HDL Cholesterol Urine WBC (Auto) Urine Creatinine Urine Total Protein Coronavirus (PCR) Crossmatch 06/30/20 06/30/20 06/30/20 12:04 17:43 23:41 WBC RBC Hgb Hct MCHC RDW Lymph % (Auto) [place] % (Auto) Eos % (Auto) Lymph # [place] # Lymph # (Auto) [place] # (Auto) Seg Neutrophils % Seg Neuts % (Manual) Lymphocytes % (Manual) Seg Neutrophils # Seg Neutrophils # Man Lymphocytes # (Manual) Monocytes % (Manual) Eosinophils % (Manual) Monocytes # (Manual) Eosinophils # (Manual) D-Dimer Heparin Anti-Xa Level ABG pH POC ABG pCO2 POC ABG pO2 ABG pO2 ABG HCO3 ABG O2 Saturation ABG Base Excess ABG Hemoglobin ABG Oxyhemoglobin VBG pH Oxyhemoglobin Sodium Potassium Chloride Carbon Dioxide BUN Creatinine Glucose POC Glucose 112 H 177 H 143 H Lactic Acid Calcium Ferritin AST Alkaline Phosphatase Magnesium Lactate Dehydrogenase Total Creatine Kinase CK-MB (CK-2) C-Reactive Protein Total Protein Albumin Troponin T HDL Cholesterol Urine WBC (Auto) Urine Creatinine Urine Total Protein Coronavirus (PCR) Crossmatch 07/01/20 07/01/20 07/01/20 05:02 05:52 06:01 WBC 12.6 H RBC 2.95 L Hgb 8.2 L Hct 26.0 L MCHC RDW 16.9 H Lymph % (Auto) [place] % (Auto) Eos % (Auto) Lymph # [place] # Lymph # (Auto) [place] # (Auto) Seg Neutrophils % Seg Neuts % (Manual) Lymphocytes % (Manual) Seg Neutrophils # Seg Neutrophils # Man 8.6 H Lymphocytes # (Manual) Monocytes % (Manual) Eosinophils % (Manual) 5.0 H Monocytes # (Manual) Eosinophils # (Manual) 0.6 H D-Dimer Heparin Anti-Xa Level ABG pH POC ABG pCO2 POC ABG pO2 ABG pO2 ABG HCO3 ABG O2 Saturation ABG Base Excess ABG Hemoglobin 8.2 L ABG Oxyhemoglobin VBG pH Oxyhemoglobin Sodium Potassium Chloride Carbon Dioxide BUN Creatinine Glucose POC Glucose 129 H Lactic Acid Calcium Ferritin AST Alkaline Phosphatase Magnesium Lactate Dehydrogenase Total Creatine Kinase CK-MB (CK-2) C-Reactive Protein Total Protein Albumin Troponin T HDL Cholesterol Urine WBC (Auto) Urine Creatinine Urine Total Protein Coronavirus (PCR) Crossmatch 07/01/20 07/01/20 07/01/20 06:01 06:01 06:08 WBC RBC Hgb Hct MCHC RDW Lymph % (Auto) [place] % (Auto) Eos % (Auto) Lymph # [place] # Lymph # (Auto) [place] # (Auto) Seg Neutrophils % Seg Neuts % (Manual) Lymphocytes % (Manual) Seg Neutrophils # Seg Neutrophils # Man Lymphocytes # (Manual) Monocytes % (Manual) Eosinophils % (Manual) Monocytes # (Manual) Eosinophils # (Manual) D-Dimer Heparin Anti-Xa Level ABG pH POC ABG pCO2 POC ABG pO2 ABG pO2 ABG HCO3 ABG O2 Saturation ABG Base Excess ABG Hemoglobin ABG Oxyhemoglobin VBG pH Oxyhemoglobin Sodium 147 H Potassium Chloride 108.0 H Carbon Dioxide BUN 71 H Creatinine 1.3 H Glucose 193 H POC Glucose 192 H Lactic Acid Calcium 8.1 L Ferritin AST Alkaline Phosphatase Magnesium Lactate Dehydrogenase Total Creatine Kinase 300 H CK-MB (CK-2) C-Reactive Protein Total Protein Albumin Troponin T 0.067 H HDL Cholesterol 61 H Urine WBC (Auto) Urine Creatinine Urine Total Protein Coronavirus (PCR) Crossmatch 07/01/20 07/01/20 07/02/20 12:23 17:40 00:18 WBC RBC Hgb Hct MCHC RDW Lymph % (Auto) [place] % (Auto) Eos % (Auto) Lymph # [place] # Lymph # (Auto) [place] # (Auto) Seg Neutrophils % Seg Neuts % (Manual) Lymphocytes % (Manual) Seg Neutrophils # Seg Neutrophils # Man Lymphocytes # (Manual) Monocytes % (Manual) Eosinophils % (Manual) Monocytes # (Manual) Eosinophils # (Manual) D-Dimer Heparin Anti-Xa Level ABG pH POC ABG pCO2 POC ABG pO2 ABG pO2 ABG HCO3 ABG O2 Saturation ABG Base Excess ABG Hemoglobin ABG Oxyhemoglobin VBG pH Oxyhemoglobin Sodium Potassium Chloride Carbon Dioxide BUN Creatinine Glucose POC Glucose 111 H 135 H 145 H Lactic Acid Calcium Ferritin AST Alkaline Phosphatase Magnesium Lactate Dehydrogenase Total Creatine Kinase CK-MB (CK-2) C-Reactive Protein Total Protein Albumin Troponin T HDL Cholesterol Urine WBC (Auto) Urine Creatinine Urine Total Protein Coronavirus (PCR) Crossmatch 07/02/20 07/02/20 07/02/20 04:11 04:23 05:54 WBC RBC Hgb Hct MCHC RDW Lymph % (Auto) [place] % (Auto) Eos % (Auto) Lymph # [place] # Lymph # (Auto) [place] # (Auto) Seg Neutrophils % Seg Neuts % (Manual) Lymphocytes % (Manual) Seg Neutrophils # Seg Neutrophils # Man Lymphocytes # (Manual) Monocytes % (Manual) Eosinophils % (Manual) Monocytes # (Manual) Eosinophils # (Manual) D-Dimer Heparin Anti-Xa Level ABG pH POC ABG pCO2 POC ABG pO2 ABG pO2 ABG HCO3 ABG O2 Saturation ABG Base Excess ABG Hemoglobin 5.4 L ABG Oxyhemoglobin VBG pH Oxyhemoglobin Sodium Potassium Chloride 108.6 H Carbon Dioxide BUN 72 H Creatinine Glucose 112 H POC Glucose 137 H Lactic Acid Calcium 7.8 L Ferritin AST Alkaline Phosphatase Magnesium Lactate Dehydrogenase Total Creatine Kinase CK-MB (CK-2) C-Reactive Protein Total Protein Albumin Troponin T HDL Cholesterol Urine WBC (Auto) Urine Creatinine Urine Total Protein Coronavirus (PCR) Crossmatch 07/02/20 07/02/20 07/02/20 11:38 18:04 23:59 WBC RBC Hgb Hct MCHC RDW Lymph % (Auto) [place] % (Auto) Eos % (Auto) Lymph # [place] # Lymph # (Auto) [place] # (Auto) Seg Neutrophils % Seg Neuts % (Manual) Lymphocytes % (Manual) Seg Neutrophils # Seg Neutrophils # Man Lymphocytes # (Manual) Monocytes % (Manual) Eosinophils % (Manual) Monocytes # (Manual) Eosinophils # (Manual) D-Dimer Heparin Anti-Xa Level ABG pH POC ABG pCO2 POC ABG pO2 ABG pO2 ABG HCO3 ABG O2 Saturation ABG Base Excess ABG Hemoglobin ABG Oxyhemoglobin VBG pH Oxyhemoglobin Sodium Potassium Chloride Carbon Dioxide BUN Creatinine Glucose POC Glucose 128 H 135 H 156 H Lactic Acid Calcium Ferritin AST Alkaline Phosphatase Magnesium Lactate Dehydrogenase Total Creatine Kinase CK-MB (CK-2) C-Reactive Protein Total Protein Albumin Troponin T HDL Cholesterol Urine WBC (Auto) Urine Creatinine Urine Total Protein Coronavirus (PCR) Crossmatch 07/03/20 07/03/20 07/03/20 03:49 06:00 11:31 WBC RBC Hgb Hct MCHC RDW Lymph % (Auto) [place] % (Auto) Eos % (Auto) Lymph # [place] # Lymph # (Auto) [place] # (Auto) Seg Neutrophils % Seg Neuts % (Manual) Lymphocytes % (Manual) Seg Neutrophils # Seg Neutrophils # Man Lymphocytes # (Manual) Monocytes % (Manual) Eosinophils % (Manual) Monocytes # (Manual) Eosinophils # (Manual) D-Dimer Heparin Anti-Xa Level ABG pH POC ABG pCO2 POC ABG pO2 ABG pO2 121.0 H ABG HCO3 ABG O2 Saturation ABG Base Excess ABG Hemoglobin 8.5 L ABG Oxyhemoglobin VBG pH Oxyhemoglobin Sodium Potassium Chloride Carbon Dioxide BUN Creatinine Glucose POC Glucose 135 H 141 H Lactic Acid Calcium Ferritin AST Alkaline Phosphatase Magnesium Lactate Dehydrogenase Total Creatine Kinase CK-MB (CK-2) C-Reactive Protein Total Protein Albumin Troponin T HDL Cholesterol Urine WBC (Auto) Urine Creatinine Urine Total Protein Coronavirus (PCR) Crossmatch 07/03/20 07/03/20 07/04/20 16:07 17:40 05:49 WBC RBC Hgb Hct MCHC RDW Lymph % (Auto) [place] % (Auto) Eos % (Auto) Lymph # [place] # Lymph # (Auto) [place] # (Auto) Seg Neutrophils % Seg Neuts % (Manual) Lymphocytes % (Manual) Seg Neutrophils # Seg Neutrophils # Man Lymphocytes # (Manual) Monocytes % (Manual) Eosinophils % (Manual) Monocytes # (Manual) Eosinophils # (Manual) D-Dimer Heparin Anti-Xa Level ABG pH POC ABG pCO2 POC ABG pO2 ABG pO2 126.9 H ABG HCO3 ABG O2 Saturation ABG Base Excess ABG Hemoglobin 8.1 L ABG Oxyhemoglobin VBG pH Oxyhemoglobin Sodium Potassium Chloride Carbon Dioxide BUN Creatinine Glucose POC Glucose 120 H 128 H Lactic Acid Calcium Ferritin AST Alkaline Phosphatase Magnesium Lactate Dehydrogenase Total Creatine Kinase CK-MB (CK-2) C-Reactive Protein Total Protein Albumin Troponin T HDL Cholesterol Urine WBC (Auto) Urine Creatinine Urine Total Protein Coronavirus (PCR) Crossmatch 07/04/20 07/04/20 07/05/20 11:54 18:00 00:07 WBC RBC Hgb Hct MCHC RDW Lymph % (Auto) [place] % (Auto) Eos % (Auto) Lymph # [place] # Lymph # (Auto) [place] # (Auto) Seg Neutrophils % Seg Neuts % (Manual) Lymphocytes % (Manual) Seg Neutrophils # Seg Neutrophils # Man Lymphocytes # (Manual) Monocytes % (Manual) Eosinophils % (Manual) Monocytes # (Manual) Eosinophils # (Manual) D-Dimer Heparin Anti-Xa Level ABG pH POC ABG pCO2 POC ABG pO2 ABG pO2 ABG HCO3 ABG O2 Saturation ABG Base Excess ABG Hemoglobin ABG Oxyhemoglobin VBG pH Oxyhemoglobin Sodium Potassium Chloride Carbon Dioxide BUN Creatinine Glucose POC Glucose 168 H 133 H 121 H Lactic Acid Calcium Ferritin AST Alkaline Phosphatase Magnesium Lactate Dehydrogenase Total Creatine Kinase CK-MB (CK-2) C-Reactive Protein Total Protein Albumin Troponin T HDL Cholesterol Urine WBC (Auto) Urine Creatinine Urine Total Protein Coronavirus (PCR) Crossmatch 07/05/20 07/05/20 07/05/20 01:12 02:30 12:09 WBC RBC 2.35 L Hgb 6.9 L Hct 21.1 L MCHC RDW 16.8 H Lymph % (Auto) [place] % (Auto) Eos % (Auto) Lymph # [place] # Lymph # (Auto) [place] # (Auto) Seg Neutrophils % Seg Neuts % (Manual) 74.0 H Lymphocytes % (Manual) 12.0 L Seg Neutrophils # Seg Neutrophils # Man 8.0 H Lymphocytes # (Manual) Monocytes % (Manual) 9.0 H Eosinophils % (Manual) Monocytes # (Manual) 1.0 H Eosinophils # (Manual) D-Dimer Heparin Anti-Xa Level ABG pH POC ABG pCO2 POC ABG pO2 ABG pO2 ABG HCO3 ABG O2 Saturation ABG Base Excess ABG Hemoglobin ABG Oxyhemoglobin VBG pH Oxyhemoglobin Sodium Potassium Chloride Carbon Dioxide BUN Creatinine Glucose POC Glucose 132 H Lactic Acid Calcium Ferritin AST Alkaline Phosphatase Magnesium Lactate Dehydrogenase Total Creatine Kinase CK-MB (CK-2) C-Reactive Protein Total Protein Albumin Troponin T HDL Cholesterol Urine WBC (Auto) Urine Creatinine Urine Total Protein Coronavirus (PCR) Crossmatch See Detail 07/05/20 07/05/20 07/05/20 13:05 18:04 23:13 WBC RBC 2.57 L Hgb 7.7 L Hct 23.0 L MCHC RDW 16.9 H Lymph % (Auto) [place] % (Auto) Eos % (Auto) Lymph # [place] # Lymph # (Auto) [place] # (Auto) Seg Neutrophils % Seg Neuts % (Manual) Lymphocytes % (Manual) Seg Neutrophils # Seg Neutrophils # Man Lymphocytes # (Manual) Monocytes % (Manual) Eosinophils % (Manual) Monocytes # (Manual) Eosinophils # (Manual) D-Dimer Heparin Anti-Xa Level ABG pH 7.32 L POC ABG pCO2 POC ABG pO2 ABG pO2 78.3 L ABG HCO3 ABG O2 Saturation ABG Base Excess -2.6 L ABG Hemoglobin 7.3 L ABG Oxyhemoglobin VBG pH Oxyhemoglobin Sodium Potassium Chloride Carbon Dioxide BUN Creatinine Glucose POC Glucose 160 H Lactic Acid Calcium Ferritin AST Alkaline Phosphatase Magnesium Lactate Dehydrogenase Total Creatine Kinase CK-MB (CK-2) C-Reactive Protein Total Protein Albumin Troponin T HDL Cholesterol Urine WBC (Auto) Urine Creatinine Urine Total Protein Coronavirus (PCR) Crossmatch 07/05/20 07/05/20 07/06/20 23:13 23:43 13:20 WBC RBC Hgb Hct MCHC RDW Lymph % (Auto) [place] % (Auto) Eos % (Auto) Lymph # [place] # Lymph # (Auto) [place] # (Auto) Seg Neutrophils % Seg Neuts % (Manual) Lymphocytes % (Manual) Seg Neutrophils # Seg Neutrophils # Man Lymphocytes # (Manual) Monocytes % (Manual) Eosinophils % (Manual) Monocytes # (Manual) Eosinophils # (Manual) D-Dimer Heparin Anti-Xa Level ABG pH POC ABG pCO2 POC ABG pO2 ABG pO2 ABG HCO3 ABG O2 Saturation ABG Base Excess ABG Hemoglobin ABG Oxyhemoglobin VBG pH Oxyhemoglobin Sodium Potassium Chloride Carbon Dioxide 20 L BUN 80 H Creatinine 2.4 H D Glucose 124 H POC Glucose 121 H Lactic Acid Calcium 7.6 L Ferritin AST Alkaline Phosphatase Magnesium Lactate Dehydrogenase Total Creatine Kinase CK-MB (CK-2) C-Reactive Protein Total Protein Albumin Troponin T HDL Cholesterol Urine WBC (Auto) Urine Creatinine 33.3 H Urine Total Protein Coronavirus (PCR) Crossmatch 07/06/20 07/06/20 07/07/20 14:48 17:28 00:12 WBC RBC Hgb Hct MCHC RDW Lymph % (Auto) [place] % (Auto) Eos % (Auto) Lymph # [place] # Lymph # (Auto) [place] # (Auto) Seg Neutrophils % Seg Neuts % (Manual) Lymphocytes % (Manual) Seg Neutrophils # Seg Neutrophils # Man Lymphocytes # (Manual) Monocytes % (Manual) Eosinophils % (Manual) Monocytes # (Manual) Eosinophils # (Manual) D-Dimer Heparin Anti-Xa Level ABG pH POC ABG pCO2 POC ABG pO2 ABG pO2 ABG HCO3 ABG O2 Saturation ABG Base Excess ABG Hemoglobin ABG Oxyhemoglobin VBG pH Oxyhemoglobin Sodium 136 L Potassium 5.5 H Chloride Carbon Dioxide 19 L BUN 82 H Creatinine 2.5 H Glucose 113 H POC Glucose 133 H 154 H Lactic Acid Calcium 7.7 L Ferritin AST Alkaline Phosphatase Magnesium Lactate Dehydrogenase Total Creatine Kinase CK-MB (CK-2) C-Reactive Protein Total Protein Albumin Troponin T HDL Cholesterol Urine WBC (Auto) Urine Creatinine Urine Total Protein Coronavirus (PCR) Crossmatch 07/07/20 07/07/20 07/07/20 04:15 04:15 05:31 WBC RBC 2.28 L Hgb 6.8 L Hct 20.7 L MCHC RDW 16.8 H Lymph % (Auto) [place] % (Auto) Eos % (Auto) Lymph # [place] # Lymph # (Auto) [place] # (Auto) Seg Neutrophils % Seg Neuts % (Manual) Lymphocytes % (Manual) 13.0 L Seg Neutrophils # Seg Neutrophils # Man Lymphocytes # (Manual) 1.0 L Monocytes % (Manual) 11.0 H Eosinophils % (Manual) Monocytes # (Manual) 0.9 H Eosinophils # (Manual) D-Dimer Heparin Anti-Xa Level ABG pH POC ABG pCO2 POC ABG pO2 ABG pO2 ABG HCO3 ABG O2 Saturation ABG Base Excess ABG Hemoglobin ABG Oxyhemoglobin VBG pH Oxyhemoglobin Sodium Potassium Chloride Carbon Dioxide BUN Creatinine Glucose POC Glucose 135 H Lactic Acid Calcium Ferritin AST Alkaline Phosphatase Magnesium 2.50 H Lactate Dehydrogenase Total Creatine Kinase CK-MB (CK-2) C-Reactive Protein Total Protein Albumin Troponin T HDL Cholesterol Urine WBC (Auto) Urine Creatinine Urine Total Protein Coronavirus (PCR) Crossmatch 07/07/20 07/07/20 07/07/20 12:31 13:22 17:55 WBC RBC Hgb Hct MCHC RDW Lymph % (Auto) [place] % (Auto) Eos % (Auto) Lymph # [place] # Lymph # (Auto) [place] # (Auto) Seg Neutrophils % Seg Neuts % (Manual) Lymphocytes % (Manual) Seg Neutrophils # Seg Neutrophils # Man Lymphocytes # (Manual) Monocytes % (Manual) Eosinophils % (Manual) Monocytes # (Manual) Eosinophils # (Manual) D-Dimer Heparin Anti-Xa Level ABG pH POC ABG pCO2 POC ABG pO2 ABG pO2 ABG HCO3 ABG O2 Saturation ABG Base Excess ABG Hemoglobin ABG Oxyhemoglobin VBG pH Oxyhemoglobin Sodium Potassium 5.6 H Chloride Carbon Dioxide BUN 86 H Creatinine 2.9 H Glucose 127 H POC Glucose 131 H 136 H Lactic Acid Calcium 8.1 L Ferritin AST Alkaline Phosphatase Magnesium Lactate Dehydrogenase Total Creatine Kinase CK-MB (CK-2) C-Reactive Protein Total Protein Albumin Troponin T HDL Cholesterol Urine WBC (Auto) Urine Creatinine Urine Total Protein Coronavirus (PCR) Crossmatch 07/07/20 07/08/20 07/08/20 23:33 04:14 04:14 WBC RBC 3.28 L Hgb 9.7 L Hct 28.9 L D MCHC RDW 16.4 H Lymph % (Auto) 10.3 L [place] % (Auto) 10.0 H Eos % (Auto) Lymph # [place] # Lymph # (Auto) 1.1 L [place] # (Auto) 1.1 H Seg Neutrophils % 77.2 H Seg Neuts % (Manual) Lymphocytes % (Manual) Seg Neutrophils # 8.2 H Seg Neutrophils # Man Lymphocytes # (Manual) Monocytes % (Manual) Eosinophils % (Manual) Monocytes # (Manual) Eosinophils # (Manual) D-Dimer Heparin Anti-Xa Level ABG pH POC ABG pCO2 POC ABG pO2 ABG pO2 ABG HCO3 ABG O2 Saturation ABG Base Excess ABG Hemoglobin ABG Oxyhemoglobin VBG pH Oxyhemoglobin Sodium 136 L Potassium Chloride Carbon Dioxide BUN 84 H Creatinine 2.8 H Glucose 109 H POC Glucose 159 H Lactic Acid Calcium 8.1 L Ferritin AST Alkaline Phosphatase Magnesium 2.50 H Lactate Dehydrogenase Total Creatine Kinase CK-MB (CK-2) C-Reactive Protein Total Protein Albumin Troponin T HDL Cholesterol Urine WBC (Auto) Urine Creatinine Urine Total Protein Coronavirus (PCR) Crossmatch 07/08/20 07/08/20 07/08/20 12:10 18:10 23:50 WBC RBC Hgb Hct MCHC RDW Lymph % (Auto) [place] % (Auto) Eos % (Auto) Lymph # [place] # Lymph # (Auto) [place] # (Auto) Seg Neutrophils % Seg Neuts % (Manual) Lymphocytes % (Manual) Seg Neutrophils # Seg Neutrophils # Man Lymphocytes # (Manual) Monocytes % (Manual) Eosinophils % (Manual) Monocytes # (Manual) Eosinophils # (Manual) D-Dimer Heparin Anti-Xa Level ABG pH POC ABG pCO2 POC ABG pO2 ABG pO2 ABG HCO3 ABG O2 Saturation ABG Base Excess ABG Hemoglobin ABG Oxyhemoglobin VBG pH Oxyhemoglobin Sodium Potassium Chloride Carbon Dioxide BUN Creatinine Glucose POC Glucose 108 H 125 H 141 H Lactic Acid Calcium Ferritin AST Alkaline Phosphatase Magnesium Lactate Dehydrogenase Total Creatine Kinase CK-MB (CK-2) C-Reactive Protein Total Protein Albumin Troponin T HDL Cholesterol Urine WBC (Auto) Urine Creatinine Urine Total Protein Coronavirus (PCR) Crossmatch 07/09/20 07/09/20 07/09/20 05:39 11:57 17:56 WBC RBC Hgb Hct MCHC RDW Lymph % (Auto) [place] % (Auto) Eos % (Auto) Lymph # [place] # Lymph # (Auto) [place] # (Auto) Seg Neutrophils % Seg Neuts % (Manual) Lymphocytes % (Manual) Seg Neutrophils # Seg Neutrophils # Man Lymphocytes # (Manual) Monocytes % (Manual) Eosinophils % (Manual) Monocytes # (Manual) Eosinophils # (Manual) D-Dimer Heparin Anti-Xa Level ABG pH POC ABG pCO2 POC ABG pO2 ABG pO2 ABG HCO3 ABG O2 Saturation ABG Base Excess ABG Hemoglobin ABG Oxyhemoglobin VBG pH Oxyhemoglobin Sodium Potassium Chloride Carbon Dioxide BUN Creatinine Glucose POC Glucose 121 H 123 H 119 H Lactic Acid Calcium Ferritin AST Alkaline Phosphatase Magnesium Lactate Dehydrogenase Total Creatine Kinase CK-MB (CK-2) C-Reactive Protein Total Protein Albumin Troponin T HDL Cholesterol Urine WBC (Auto) Urine Creatinine Urine Total Protein Coronavirus (PCR) Crossmatch 07/10/20 07/10/20 00:29 05:50 WBC RBC Hgb Hct MCHC RDW Lymph % (Auto) [place] % (Auto) Eos % (Auto) Lymph # [place] # Lymph # (Auto) [place] # (Auto) Seg Neutrophils % Seg Neuts % (Manual) Lymphocytes % (Manual) Seg Neutrophils # Seg Neutrophils # Man Lymphocytes # (Manual) Monocytes % (Manual) Eosinophils % (Manual) Monocytes # (Manual) Eosinophils # (Manual) D-Dimer Heparin Anti-Xa Level ABG pH POC ABG pCO2 POC ABG pO2 ABG pO2 ABG HCO3 ABG O2 Saturation ABG Base Excess ABG Hemoglobin ABG Oxyhemoglobin VBG pH Oxyhemoglobin Sodium Potassium Chloride Carbon Dioxide BUN Creatinine Glucose POC Glucose 122 H 124 H Lactic Acid Calcium Ferritin AST Alkaline Phosphatase Magnesium Lactate Dehydrogenase Total Creatine Kinase CK-MB (CK-2) C-Reactive Protein Total Protein Albumin Troponin T HDL Cholesterol Urine WBC (Auto) Urine Creatinine Urine Total Protein Coronavirus (PCR) Crossmatch Allied health notes reviewed: nursing
[2020-07-10 11:19] LABS: Hematocrit 27.6 % (30.3-42.9); Hemoglobin 9.2 gm/dl (10.1-14.3); Mean Corpuscular HGB Conc 34 % (30-34); Mean Corpuscular Volume 89 fl (79-97); Platelet Count 325 K/mm3 (140-440); Red Blood Count 3.11 M/mm3 (3.65-5.03); Red Cell Distribution Width 16.6 % (13.2-15.2)
[2020-07-10 11:24] LABS: Alanine Aminotransferase 11 units/L (7-56); Albumin 1.6 g/dL (3.9-5); BUN/Creatinine Ratio 34; Blood Urea Nitrogen 85 mg/dL (7-17); Calcium 8.4 mg/dL (8.4-10.2); Hemolysis Index 4
--- NOTE | 2020-07-10 12:29 | Progress Note ---
Assessment and Plan Cultures: Coronavirus PCR 05/28/2020: Positive 05/28/2020 blood culture: no growth 05/28/2020 tracheal aspirate: Usual respiratory bobo 05/28/2020 urine culture: No growth 06/03/2020 urine culture: No growth 06/09/2020 tracheal aspirate Klebsiella pneumoniae 06/28/2020 sputum culture positive for Klebsiella 06/28/2020 blood cultures no growth today 06/29/2020 COV2 PCR positive A/P: 64-year-old female with hypertension, diastolic CHF, pulmonary hypertension, diabetes, obesity hypoventilation syndrome, recent COVID pneumonia, was admitted to the emergency room after she called EMS due to difficulty breathing. On the way to the hospital, patient developed cardiac arrest and was treated as per ACLS protocol: #Cardiac arrest on 07/01/2020. #Sepsis on 06/27/2020: Resolved. After asystolic cardiac arrest on 06/26/2028. #Bilateral pneumonia: Secondary to COVID-19. Completed 5 days of IV Remdesivir 06/02/2020, completed steroids. ?Healthcare associated pneumonia, repeat sputum Klebsiella. Chest x-ray worsening infiltrates. Completed abx. #Acute hypoxic respiratory failure: On mechanical ventilation. Minimal vent settings. #HF: EF 45-50% #Mild LFT elevation: likely from COVID-19. #Severe constipation: Status post manual disimpaction. #Encephalopathy: ? Post cardiac arrest. Recs: -continue supportive care -overall guarded prognosis Mallory Wright MD, FACP [facility] C: [phone] O: [phone] F: [phone] Subjective Date of service: 07/10/20 Principal diagnosis: Ac hypoxemic resp failure; COVID-19; pneumonia; CHF; Pulm HTN; OHS; DM II Interval history: Remains intubated, on the vent, minimal settings. No fever. Objective - Exam Narrative Exam: Physical Exam (reviewed in chart due to PPE conservation) Constitutional: intubated, sedated, on the vent Head, Ears, Nose: normocephalic, atraumatic Eyes: limited due to PPE conservation strategy Neck: intubated Oral: intubated Cardiovascular: limited due to PPE conservation strategy Respiratory: limited due to PPE conservation strategy GI: limited due to PPE conservation strategy Musculoskeletal: limited due to PPE conservation strategy Skin: limited due to PPE conservation strategy Hem/Lymphatic: limited due to PPE conservation strategy Psych: no agitation Neurological: sedated, intubated, on the vent, exam limited - Constitutional Vitals: Vital Signs Temp Pulse Resp BP Pulse Ox 98.9 F 69 14 134/50 100 07/10/20 12:00 07/10/20 12:05 07/10/20 12:05 07/10/20 12:05 07/10/20 12:05 Temperature -Last 24 Hours Temperature 98.9 F Temperature 98.3 F Temperature 98.9 F Temperature 98.8 F Temperature 97.9 F Temperature 97.6 F - Labs CBC & Chem 7: 07/10/20 10:41 07/10/20 10:41 Labs: Abnormal lab results 07/09/20 07/09/20 07/10/20 Range/Units 11:57 17:56 00:29 RBC (3.65-5.03) M/mm3 Hgb (10.1-14.3) gm/dl Hct (30.3-42.9) % RDW (13.2-15.2) % BUN (7-17) mg/dL Creatinine (0.6-1.2) mg/dL Glucose (65-100) mg/dL POC Glucose 123 H 119 H 122 H (70-105) Alkaline Phosphatase (35-129) units/L Total Protein (6.3-8.2) g/dL Albumin (3.9-5) g/dL 07/10/20 07/10/20 07/10/20 Range/Units 05:50 10:41 10:41 RBC 3.11 L (3.65-5.03) M/mm3 Hgb 9.2 L (10.1-14.3) gm/dl Hct 27.6 L (30.3-42.9) % RDW 16.6 H (13.2-15.2) % BUN 85 H (7-17) mg/dL Creatinine 2.5 H (0.6-1.2) mg/dL Glucose 133 H (65-100) mg/dL POC Glucose 124 H (70-105) Alkaline Phosphatase 131 H (35-129) units/L Total Protein 5.2 L (6.3-8.2) g/dL Albumin 1.6 L (3.9-5) g/dL
[2020-07-10 14:30] LABS: Anisocytosis 1+; Band Neutrophils # (Manual) 0.2 K/mm3; Basophils % (Manual) 0 % (0.0-1.8); Large Platelets Rare; Macrocytosis Few; Myelocytes # (Manual) 0.1 K/mm3; Platelet Estimate Consistent w Auto; Total Cells Counted 100
[2020-07-10] MEDS: INSULIN GLARGINE 100 UNITS/ML SUB-Q SCH (21:52)
[2020-07-11] MEDS: hydrALAZINE 25 MG TAB PO SCH ×3 (05:50→21:00)
[2020-07-11] MEDS: HEPARIN 5,000 UNIT/1 ML VIAL SUB-Q SCH ×3 (05:51→21:03)
[2020-07-11] MEDS: INSULIN LISPRO 100 UNIT/ML VIAL 3 mL SUB-Q SCH ×4 (08:53→18:12)
--- NOTE | 2020-07-11 09:04 | Progress Note ---
Assessment and Plan Assessment and plan: -- Acute hypoxemic respiratory failure intubated on admission, extubated on 06/12/20 then placed on high flow o2 patient developed another respiratory arrest on 06/26 - reintubated Patient not tolerating weaning parameters CC following, may need trach and PEG if unable to wean --Hyperkalemia; resolved Monitor electrolytes -- Hypertension; uncontrolled Increase hydralazine dose to 75 mg 3 times a day Continue amlodipine, coreg, clonidine and hydralazine --Worsening renal function; creatinine 2.4-2.5-2.9 Vasomotor nephropathy, gentle hydration Avoid nephrotoxins, monitor renal function Reconsult nephrology --Rectal bleeding; Hb dropped from 8.2 -6.9-7.7-6.8 today, Transfused 1 unit PRBC Closely monitor H&H, GI following, no plans of endoscopy --Acute blood loss anemia; Received 2 units of PRBC transfusion, Hb improved from 6.9-7.7-6.8 Patient received 2 units of PRBC in the past, transfuse 1 additional unit today Closely monitor H&H -- s/p cardiopulmonary arrest on admission, 06/26 and 07/01, s/p CPR per ACLS protocol, refer to code sheet --Severe sepsis persistently positive for COVID-19 and Klebsiella pneumoniae ID following, completed treatment for COVID-19 and completed antibiotic --COVID-19 b/l PNA Completed remdesivir on 06/02 Completed dexamethasone - Last dose 06/07 ID recs appreciated. COVID-19 positive since 05/28/2020 Repeat test 06/29 still positive --Superficial left cephalic vein DVT/elevated D-dimers[COVID 19] Patient initially started on heparin drip from 05/29/20 D-dimers improved [id number] Heparin drip discontinued treated with Eliquis 5 mg twice a day for 1 week[per ID] stop date 06/26/2020 -- Acute toxic metabolic encephalopathy, POA likely from sepsis and s/p cardiac arrest with possible anoxic injury -- Acute renal failure: likely ATN Resolved, avoid nephrotoxins --Klebsiella pneumonia: Initially completed antibiotics with cefepime Repeat sputum culture still positive for Klebsiella, restarted antibiotic Completed second round of 5 days of cefepime on 07/04/2020 --Acute on chronic systolic heart failure Cardiology following. Ef 45% -- Coffee ground emesis -Stress ulcers Possible stress ulcers, On PPI H/H again dropped - transfuse GI evaluated --Transaminitis. Etiology likely from COVID-19. cont to monitor -- DVT prophylaxis Eliquis, SCD to bilateral lower extremities while in bed -- Advance care planning Patient is critically ill with multiple medical problems Poor prognosis, family updated and requesting full code The high probability of a clinically significant, sudden or life threatening deterioration of the [CVS, renal, respiratory, INSTRUMENT PROCESSING TECH] system(s) required my full and direct attention, intervention and personal management. The aggregate critical care time was [33] minutes. This time is in addition to time spent performing reported procedures but includes the following: [x] Data Review and interpretation [x] Patient assessment and monitoring of vital signs [x] Documentation [x] Medication orders and management 06/27; Code blue called yesterday. ACLS initiated, Pt found to have Asystolic Arrest with eventual return of perfusing cardiac rhythm. patient reintubated during code, transferred to ICU, called family and updated 06/28: Patient is spiking fever, started on empiric antibiotic, ordered blood urine and sputum culture. We will reconsult ID. Discussed with patient's son in the evening. Family wants to continue full CODE STATUS. Discussed with critical care attending and RN in length. 06/29: Repeat COVID-19 test is positive. Patient remains on ventilator, continue tube feeding diet. Renal function stable, H&H stable. GI recommendation appreciated -no plan for endoscopy now as there is no active bleeding. 06/30: Renal function improving, patient remains positive for COVID. Tolerating tube feeding, wean off vent as tolerated. Patient remains with poor prognosis 07/05; patient has significant drop in H&H, hemoglobin today is 6.9, heme positive stool, type and cross transfuse 2 units of PRBC GI following, no plans of endoscopy 07/07; Hb dropped to 7.7-6.8, no new episodes of bleeding, transfuse additional 1 unit PRBC today Closely monitor H&H, worsening renal function, hyperkalemia, calcium chloride Kayexalate, gentle hydration, reconsult nephrology 07/08: Patient not tolerating weaning parameters, if unable to wean may need trach and PEG, patient critically ill poor prognosis 07/11/2020. Patient currently on mechanical ventilation AC/PRVC with rate of 12, tidal volume 450, FiO2 30% and PEEP of 6 History Interval history: 64-year-old female with hypertension, diastolic CHF, pulmonary hypertension, diabetes, obesity hypoventilation syndrome, bilateral COVID pneumonia, was admitted to the emergency room after she called EMS due to difficulty breathing. On the way to the hospital, patient developed cardiac arrest and was treated as per ACLS protocol. Patient has completed 5 days of IV remdesivir 06/02/2020 and completed steroid. Patient had a second cardiac arrest during hospitalization on 07/01/2020. Patient remains intubated on mechanical ventilation. Hospitalist Physical - Constitutional Vitals: Temp Pulse Resp BP Pulse Ox 98.7 F 78 11 L 192/69 97 07/11/20 03:32 07/11/20 06:31 07/11/20 06:31 07/11/20 06:31 07/11/20 06:31 General appearance: Present: no acute distress, well-nourished, obese (Morbidly obese), other (On high flow oxygen) - EENT Eyes: Present: PERRL, EOM intact ENT: hearing intact, clear oral mucosa, dentition normal - Neck Neck: Present: supple, normal ROM - Respiratory Respiratory effort: normal Respiratory: bilateral: diminished, rhonchi - Cardiovascular Rhythm: regular Heart Sounds: Present: S1 & S2. Absent: gallop, rub - Extremities Extremities: no ischemia, No edema, Full ROM - Abdominal General gastrointestinal: soft, non-tender, non-distended, normal bowel sounds - Integumentary Integumentary: Present: clear, warm, dry - Neurologic Neurologic: CNII-XII intact, moves all extremities HEART Score - HEART Score Troponin: Troponin T 0.067 ng/mL (0.00-0.029) H 07/01/20 06:01 Results - Labs CBC & Chem 7: 07/10/20 10:41 07/10/20 10:41 Labs: Laboratory Last Values WBC 9.2 K/mm3 (4.5-11.0) 07/10/20 10:41 RBC 3.11 M/mm3 (3.65-5.03) L 07/10/20 10:41 Hgb 9.2 gm/dl (10.1-14.3) L 07/10/20 10:41 Hct 27.6 % (30.3-42.9) L 07/10/20 10:41 MCV 89 fl (79-97) 07/10/20 10:41 MCH 30 pg (28-32) 07/10/20 10:41 MCHC 34 % (30-34) 07/10/20 10:41 RDW 16.6 % (13.2-15.2) H 07/10/20 10:41 Plt Count 325 K/mm3 (140-440) 07/10/20 10:41 Lymph % (Auto) 10.3 % (13.4-35.0) L 07/08/20 04:14 Grant % (Auto) 10.0 % (0.0-7.3) H 07/08/20 04:14 Eos % (Auto) 2.0 % (0.0-4.3) 07/08/20 04:14 Baso % (Auto) 0.5 % (0.0-1.8) 07/08/20 04:14 Lymph # (Auto) 1.1 K/mm3 (1.2-5.4) L 07/08/20 04:14 Grant # (Auto) 1.1 K/mm3 (0.0-0.8) H 07/08/20 04:14 Eos # (Auto) 0.2 K/mm3 (0.0-0.4) 07/08/20 04:14 Baso # (Auto) 0.1 K/mm3 (0.0-0.1) 07/08/20 04:14 Add Manual Diff Complete 07/10/20 10:41 Total Counted 100 07/10/20 10:41 Seg Neutrophils % 77.2 % (40.0-70.0) H 07/08/20 04:14 Seg Neuts % (Manual) 78.0 % (40.0-70.0) H 07/10/20 10:41 Band Neutrophils % 2.0 % 07/10/20 10:41 Lymphocytes % (Manual) 11.0 % (13.4-35.0) L 07/10/20 10:41 Reactive Lymphs % (Man) 0 % 07/10/20 10:41 Monocytes % (Manual) 7.0 % (0.0-7.3) 07/10/20 10:41 Eosinophils % (Manual) 1.0 % (0.0-4.3) 07/10/20 10:41 Basophils % (Manual) 0 % (0.0-1.8) 07/10/20 10:41 Metamyelocytes % 0 % 07/10/20 10:41 Myelocytes % 1.0 % 07/10/20 10: Promyelocytes % 0 % 07/10/20 10:41 Blast Cells % 0 % 07/10/20 10:41 Nucleated RBC % Not Reportable 07/10/20 10:41 Seg Neutrophils # 8.2 K/mm3 (1.8-7.7) H 07/08/20 04:14 Seg Neutrophils # Man 7.2 K/mm3 (1.8-7.7) 07/10/20 10:41 Band Neutrophils # 0.2 K/mm3 07/10/20 10:41 Lymphocytes # (Manual) 1.0 K/mm3 (1.2-5.4) L 07/10/20 10:41 Abs React Lymphs (Man) 0.0 K/mm3 07/10/20 10:41 Monocytes # (Manual) 0.6 K/mm3 (0.0-0.8) 07/10/20 10:41 Eosinophils # (Manual) 0.1 K/mm3 (0.0-0.4) 07/10/20 10:41 Basophils # (Manual) 0.0 K/mm3 (0.0-0.1) 07/10/20 10:41 Metamyelocytes # 0.0 K/mm3 07/10/20 10:41 Myelocytes # 0.1 K/mm3 07/10/20 10:41 Promyelocytes # 0.0 K/mm3 07/10/20 10:41 Blast Cells # 0.0 K/mm3 07/10/20 10:41 WBC Morphology Not Reportable 07/10/20 10:41 Hypersegmented Neuts Not Reportable 07/10/20 10:41 Hyposegmented Neuts Not Reportable 07/10/20 10:41 Hypogranular Neuts Not Reportable 07/10/20 10:41 Smudge Cells Not Reportable 07/10/20 10:41 Toxic Granulation Not Reportable 07/10/20 10:41 Toxic Vacuolation Not Reportable 07/10/20 10:41 Dohle Bodies Not Reportable 07/10/20 10:41 Pelger-Huet Anomaly Not Reportable 07/10/20 10:41 Sanjuanita Rods Not Reportable 07/10/20 10:41 Platelet Estimate Consistent w auto 07/10/20 10:41 Clumped Platelets Not Reportable 07/10/20 10:41 Plt Clumps, EDTA Not Reportable 07/10/20 10:41 Large Platelets Rare 07/10/20 10:41 Giant Platelets Not Reportable 07/10/20 10:41 Platelet Satelliting Not Reportable 07/10/20 10:41 Plt Morphology Comment Not Reportable 07/10/20 10:41 RBC Morphology Not Reportable 07/10/20 10:41 Dimorphic RBCs Not Reportable 07/10/20 10:41 Polychromasia Not Reportable 07/10/20 10:41 Hypochromasia Not Reportable 07/10/20 10:41 Poikilocytosis Not Reportable 07/10/20 10:41 Anisocytosis 1+ 07/10/20 10:41 Microcytosis Not Reportable 07/10/20 10:41 Macrocytosis Few 07/10/20 10:41 Spherocytes Not Reportable 07/10/20 10:41 Pappenheimer Bodies Not Reportable 07/10/20 10:41 Sickle Cells Not Reportable 07/10/20 10:41 Target Cells Not Reportable 07/10/20 10:41 Tear Drop Cells Not Reportable 07/10/20 10:41 Ovalocytes Not Reportable 07/10/20 10:41 Helmet Cells Not Reportable 07/10/20 10:41 [place] Bodies Not Reportable 07/10/20 10:41 Lawrence Rings Not Reportable 07/10/20 10:41 Julia Cells Not Reportable 07/10/20 10:41 Bite Cells Not Reportable 07/10/20 10:41 Crenated Cell Not Reportable 07/10/20 10:41 Elliptocytes Not Reportable 07/10/20 10:41 Acanthocytes (Spur) Not Reportable 07/10/20 10:41 Rouleaux Not Reportable 07/10/20 10:41 Hemoglobin C Crystals Not Reportable 07/10/20 10:41 Schistocytes Not Reportable 07/10/20 10:41 Malaria parasites Not Reportable 07/10/20 10:41 Kev Bodies Not Reportable 07/10/20 10:41 Hem Pathologist Commnt No 07/10/20 10:41 PT 14.2 Sec. (12.2-14.9) 05/29/20 15:10 INR 1.08 (0.87-1.13) 05/29/20 15:10 APTT 27.2 Sec. (24.2-36.6) 05/29/20 15:10 D-Dimer 2310.15 ng/mlDDU (0-234) H 06/29/20 14:45 Heparin Anti-Xa Level 0.34 U.I./ml (0.3-0.7) 06/19/20 10:46 ABG pH 7.32 pH Units (7.350-7.450) L 07/05/20 13:05 POC ABG pCO2 35.8 mmHg (32.0-48.0) 07/01/20 05:02 ABG pCO2 47.0 mm Hg 07/05/20 13:05 ABG Oxyhemoglobin 92.6 (94-98) L 06/23/20 12:34 POC ABG pO2 90.8 mmHg (83-108) 07/01/20 05:02 ABG pO2 78.3 mm Hg (80.0-90.0) L 07/05/20 13:05 POC ABG HCO3 22.1 07/01/20 05:02 ABG HCO3 23.4 mmol/L (20.0-26.0) 07/05/20 13:05 ABG O2 Saturation 96.1 % (95.0-99.0) 07/05/20 13:05 ABG O2 Content 0.3 (0.0-44) 07/05/20 13:05 POC ABG Base Excess -2.3 07/01/20 05:02 ABG Base Excess -2.6 mmol/L (-2.0-3.0) L 07/05/20 13:05 ABG Hemoglobin 7.3 gm/dl (12.0-16.0) L 07/05/20 13:05 ABG Carboxyhemoglobin 1.7 % (0.0-5.0) 07/05/20 13:05 ABG Methemoglobin 0.2 % (0.0-1.5) 07/05/20 13:05 VBG pH 7.152 (7.320-7.420) L* 05/28/20 13:47 Carboxyhemoglobin 0.5 (0.5-1.5) 06/23/20 12:34 Oxyhemoglobin 97.4 % (95.0-99.0) 07/05/20 13:05 FiO2 30 % 07/05/20 13:05 Sodium 137 mmol/L (137-145) 07/10/20 10:41 Potassium 4.8 mmol/L (3.6-5.0) 07/10/20 10:41 Chloride 103.3 mmol/L (98-107) 07/10/20 10:41 Carbon Dioxide 24 mmol/L (22-30) 07/10/20 10:41 Anion Gap 15 mmol/L 07/10/20 10:41 BUN 85 mg/dL (7-17) H 07/10/20 10:41 Creatinine 2.5 mg/dL (0.6-1.2) H 07/10/20 10:41 Estimated GFR 20 ml/min 07/10/20 10:41 BUN/Creatinine Ratio 34 % 07/10/20 10:41 Glucose 133 mg/dL (65-100) H 07/10/20 10:41 POC Glucose 148 (70-105) H 07/11/20 05:57 Lactic Acid 0.60 mmol/L (0.7-2.0) L 06/27/20 05:00 Calcium 8.4 mg/dL (8.4-10.2) 07/10/20 10:41 Ferritin 223.6 ng/mL (10.0-200.0) H 06/29/20 14:45 Magnesium 2.50 mg/dL (1.7-2.3) H 07/08/20 04:14 Lactate Dehydrogenase 367 units/L (91-180) H 06/29/20 14:45 Total Bilirubin < 0.20 mg/dL (0.1-1.2) 07/10/20 10:41 AST 25 units/L (5-40) 07/10/20 10:41 ALT 11 units/L (7-56) 07/10/20 10:41 Alkaline Phosphatase 131 units/L (35-129) H 07/10/20 10:41 C-Reactive Protein 3.60 mg/dL (0.00-1.30) H 06/29/20 14:45 Total Creatine Kinase 300 units/L (30-135) H 07/01/20 06:01 CK-MB (CK-2) 2.0 ng/mL (0.0-4.0) 07/01/20 06:01 CK-MB (CK-2) Rel Index 0.6 (0-4) 07/01/20 06:01 Troponin T 0.067 ng/mL (0.00-0.029) H 07/01/20 06:01 Total Protein 5.2 g/dL (6.3-8.2) L 07/10/20 10:41 Albumin 1.6 g/dL (3.9-5) L 07/10/20 10:41 Albumin/Globulin Ratio 0.4 % 07/10/20 10:41 Triglycerides 142 mg/dL (2-149) 07/01/20 06:01 Cholesterol 137 mg/dL (50-199) 07/01/20 06:01 LDL Cholesterol Direct 62 mg/dL (50-130) 07/01/20 06:01 HDL Cholesterol 61 mg/dL (40-59) H 07/01/20 06:01 Cholesterol/HDL Ratio 2.24 % 07/01/20 06:01 Procalcitonin 2.45 ng/mL (<0.15) 06/29/20 14:45 Urine Color Yellow (Yellow) 06/06/20 04:00 Urine Turbidity Cloudy (Clear) 06/06/20 04:00 Urine pH 5.0 (5.0-7.0) 06/06/20 04:00 Ur Specific [place] 1.012 (1.003-1.030) 06/06/20 04:00 Urine Protein 100 mg/dl mg/dL (Negative) 06/06/20 04:00 Urine Glucose (UA) 50 mg/dL (Negative) 06/06/20 04:00 Urine Ketones Neg mg/dL (Negative) 06/06/20 04:00 Urine Blood Sm (Negative) 06/06/20 04:00 Urine Nitrite Neg (Negative) 06/06/20 04:00 Urine Bilirubin Neg (Negative) 06/06/20 04:00 Urine Urobilinogen < 2.0 mg/dL (<2.0) 06/06/20 04:00 Ur Leukocyte Esterase Neg (Negative) 06/06/20 04:00 Urine WBC (Auto) 15.0 /HPF (0.0-6.0) H 06/06/20 04:00 Urine RBC (Auto) 23.0 /HPF (0.0-6.0) 06/06/20 04:00 U Epithel Cells (Auto) 8.0 /HPF (0-13.0) 06/06/20 04:00 Urine Bacteria (Auto) 2+ /HPF (Negative) 06/06/20 04:00 Amorphous Crystals 1+ 06/06/20 04:00 Hyaline Casts 16 /LPF 06/06/20 04:00 Urine Mucus 2+ /HPF 06/06/20 04:00 Urine Yeast (Budding) 2+ /HPF 06/03/20 Unknown Urine Creatinine 33.3 mg/dL (0.1-20.0) H 07/06/20 13:20 Urine Sodium 21 mmol/L 07/06/20 13:20 Urine Total Protein 196 mg/dL (5-11.8) H 06/06/20 04:00 Nasal Screen MRSA (PCR) Negative (Negative) 06/29/20 08:30 Coronavirus (PCR) Positive (Negative) A 06/29/20 Unknown Blood Type A POSITIVE 07/05/20 02:30 Antibody Screen Negative 07/05/20 02:30 Crossmatch See Detail 07/05/20 02:30 - Diagnostic Impressions Diagnostic Impressions: Echocardiogram Limited Views 05/29/20 13:52 Transthoracic Echocardiogram Indication: Pulm Embolus BP: 169/76 HR: 85 Conclusions *Limited study for RV size post cardiopulmonar arrest. *RV is only slightly dilated, no significant difference from prior echo 05/13/2020. *Global left ventricular systolic function is at the lower limits of normal. *The estimated ejection fraction is 45-50%. *Mild to moderate concentric left ventricular hypertrophy is observed. *The left and right atria are both mild to moderately dilated. Findings Left Ventricle: The left ventricular chamber size is mildly dilated. Mild to moderate concentric left ventricular hypertrophy is observed. Global left ventricular systolic function is at the lower limits of normal. The estimated ejection fraction is 45-50%. Left Atrium: The left atrium is mild to moderately dilated. Right Ventricle: The right ventricle is slightly dilated. Right Atrium: The right atrium is mild to moderately dilated. Aortic Valve: The aortic valve leaflets are moderately thickened. Mitral Valve: There is mitral annular calcification. The mitral valve leaflets are moderately thickened. Tricuspid Valve: The tricuspid valve leaflets are mildly thickened. Pericardium: A trivial pericardial effusion is visualized. NDUM: 05/29/20 1808 Amended Report Transthoracic Echocardiogram Indication: Pulm Embolus BP: 169/76 HR: 85 Conclusions *Limited study for RV size post cardiopulmonary arrest. *RV is only slightly dilated, no significant difference from prior echo 05/13/2020. *Global left ventricular systolic function is at the lower limits of normal. *The estimated ejection fraction is 45-50%. *Mild to moderate concentric left ventricular hypertrophy is observed. *The left and right atria are both mild to moderately dilated. Findings Left Ventricle: The left ventricular chamber size is mildly dilated. Mild to moderate concentric left ventricular hypertrophy is observed. Global left ventricular systolic function is at the lower limits of normal. The estimated ejection fraction is 45-50%. Left Atrium: The left atrium is mild to moderately dilated. Right Ventricle: The right ventricle is slightly dilated. Right Atrium: The right atrium is mild to moderately dilated. Aortic Valve: The aortic valve leaflets are moderately thickened. Mitral Valve: There is mitral annular calcification. The mitral valve leaflets are moderately thickened. Tricuspid Valve: The tricuspid valve leaflets are mildly thickened. Pericardium: A trivial pericardial effusion is visualized. Helm/IV: Voiding Method Indwelling Catheter IV Catheter Type [Left Wrist] INT / Saline Lock IV Catheter Type [Left Upper Mid-line arm] IV Catheter Type [Right CVL Internal Jugular] IV Catheter Type [Right Hand] INT / Saline Lock IV Catheter Type [Right Wrist] Not found on patient IV Catheter Type [Left Hand] INT / Saline Lock IV Catheter Type [Left INT / Saline Lock Antecubital] IV Catheter Type [Right Peripheral IV Forearm] IV Catheter Type [Left Leg] Intra-osseous Active Medications - Current Medications Current Medications: Generic Name Dose Route Start Last Admin Trade Name Freq PRN Reason Stop Dose Admin Acetaminophen 650 mg 06/09/20 10:57 06/29/20 21:18 Tylenol FEEDTUBE 650 mg Q6H PRN Administration Fever >101 Amlodipine Besylate 10 mg 06/02/20 11:00 07/10/20 10:15 Amlodipine PO 10 mg DAILY NELSON Administration Lipase/Protease/Amylase 1 each 05/29/20 13:39 07/07/20 10:[address] 10,500 Unit FEEDTUBE 1 each PRN PRN Administration For Clogged Feeding Tube Carvedilol 12.5 mg 06/03/20 10:00 07/10/20 21:49 Coreg PO 12.5 mg BID NELSON Administration Clonidine HCl 0.2 mg 06/23/20 22:00 07/10/20 21:51 Catapres PO 0.2 mg Q12HR NELSON Administration Glycopyrrolate 2 mg 06/09/20 14:00 07/10/20 21:49 Glycopyrrolate PO 2 mg TID NELSON Administration Heparin Sodium (Porcine) 5,000 unit 06/30/20 14:00 07/11/20 05:51 Heparin SUB-Q 5,000 unit Q8HR NELSON Administration Hydralazine HCl 75 mg 07/08/20 10:00 07/11/20 05:50 Apresoline PO 75 mg Q8HR NELSON Administration Hydrophilic Ointment 1 applic 05/28/20 13:49 Vaseline Lip Therapy TP Q2HR PRN Dry Lips Insulin Glargine 10 units 06/08/20 22:00 07/10/20 21:52 Lantus SUB-Q 10 units QHS NELSON Administration Insulin Human Lispro 0 unit 05/29/20 18:00 07/11/20 00:00 Humalog SUB-Q Not Given Q6H [facility] Protocol Labetalol HCl 20 mg 06/03/20 09:00 07/11/20 05:49 Labetalol IV 20 mg Q4H PRN Administration HYPERTENSION Lansoprazole 30 mg 06/05/20 22:00 07/10/20 21:50 Prevacid Solutab FEEDTUBE 30 mg BID NELSON Administration Levetiracetam 500 mg 06/16/20 11:00 07/10/20 21:50 Keppra PO 500 mg BID NELSON Administration Modafinil 100 mg 07/02/20 20:00 07/10/20 10:15 Provigil PO 100 mg DAILY NELOSN Administration Multi-Ingred Cream/Lotion/Oil/Oint 1 applic 05/28/20 13:49 Artificial Tears Ophth Oint OU Q4HR PRN Dry Eye(s) Ondansetron HCl 4 mg 06/02/20 09:00 06/09/20 16:48 Zofran IV 4 mg Q8H PRN Administration Nausea And Vomiting Senna 17.6 mg 06/03/20 10:00 07/10/20 22:00 Senokot FEEDTUBE Not Given BID NELSON Simple Syrup 15 ml 05/29/20 13:39 Simple Syrup FEEDTUBE PRN PRN Hypoglycemia Simple Syrup 30 ml 05/29/20 13:39 Simple Syrup FEEDTUBE PRN PRN Hypoglycemia Sodium Bicarbonate 325 mg 05/29/20 13:39 07/07/20 10:36 Sodium Bicarbonate FEEDTUBE 325 mg PRN PRN Administration For Clogged Feeding Tube Sodium Chloride 10 ml 05/28/20 22:00 07/10/20 21:55 Sodium Chloride Flush Syringe 10 Ml IV 10 ml BID NELSON Administration Sodium Chloride 10 ml 05/28/20 19:08 06/16/20 17:50 Sodium Chloride Flush Syringe 10 Ml IV 10 ml PRN PRN Administration LINE FLUSH Nutrition/Malnutrition Assess - Dietary Evaluation Nutrition/Malnutrition Findings: Nutrition Notes Start: 05/29/20 11:45 Freq: Status: Active Protocol: Document 07/09/20 11:47 [email or web address] (Rec: 07/09/20 11:53 [email or web address]) Co-Sign 07/09/20 11:47 Nutrition Notes Initial or Follow up Reassessment Current Diagnosis Acute Kidney Injury,Diabetes, Heart Failure,Respiratory Failure Other Pertinent Diagnosis COVID-19 (+), Pulmonary edema, dysphagia Current Diet Glucerna 1.2 at 55ml/hr Labs/Tests Na 136 BUN 84 Cr 2.8 BG 109 Mg 2.5 Pertinent Medications Reviewed Height 5 ft 6 in Weight 123 kg [place] Body Weight (kg) 59.09 BMI 43.7 Weight Status Morbidly Obese Subjective/Other Information F/U TF tolerance. Per RN, pt tolerating TF and running at goal rate. Percent of energy/protein needs met: 99%/53% Burn Absent Trauma Absent Current % PO Negligible Minimum of two criteria No physical signs of malnutrition Fluid Accumulation Mild (non-severe) #1 Nutrition Diagnosis Inadequate oral intake Diagnosis Progress(for reassessment Continues documentation) Is patient on ventilator? Yes Is Patient Ambulatory and/or Out of Bed No REE-(Neversink-St. Jeor-confined to bed) 2172.576 Kcal/Kg value to use for calculation 13 Approximate Energy Requirements Using 1599 kcal/Kg Calculation Used for Recommendations Kcal/kg Additional Notes Protein needs up to 148g (up to 2.5g/kg IBW) Fluid needs 1ml/kcal Nutrition Intervention Change Diet Order: Change TF Nutrition Support: Nepro at 40ml/hr Flush 150ml q4h Kcal 1,728 Protein (gm) 78 Fluid (mL) 697 Goal #1 TF tolerance Goal #2 TF to meet at least 65%-70% energy and 80% protein needs Anticipated Discharge Needs: Unable to determine at this time Follow-Up By: 07/20/20 Additional Comments F/U for TF tolerance
--- NOTE | 2020-07-11 11:18 | XRay Report ---
ABDOMEN 1 VIEW(S) 07/11/2020 9:59 AM INDICATION / CLINICAL INFORMATION: Feeding tube re-placement. COMPARISON: 06/27/2020 FINDINGS: The tip of an esophagogastric tube projects over the body of the stomach in expected position. Previo usly noted Dobbhoff feeding tube has been removed. Signer Name: Chema Corrigan MD Signed: 07/11/2020 11:14 AM Workstation Name: [id number]
[2020-07-11] MEDS: MODAFINIL 100 MG TAB PO SCH (11:41)
[2020-07-11] MEDS: cloNIDine 0.2 MG TAB PO SCH ×2 (11:41→21:01)
[2020-07-11] MEDS: GLYCOPYRROLATE 2 MG TAB PO SCH ×3 (11:41→20:40)
[2020-07-11] MEDS: amLODIPine 10 MG TAB PO SCH (11:42)
[2020-07-11] MEDS: LANSOPRAZOLE 30 MG SOLUTAB FEEDTUBE SCH ×2 (11:42→21:02)
[2020-07-11] MEDS: levETIRAcetam 500 MG/5 ML ORAL LIQD PO SCH ×2 (11:42→21:01)
[2020-07-11] MEDS: carvediloL 12.5 MG TAB PO SCH ×2 (11:42→21:02)
[2020-07-11] MEDS: SENNOSIDES ORAL LIQD 8.8 MG/5 ML ORAL LIQD FEEDTUBE SCH ×2 (11:43→21:07)
--- NOTE | 2020-07-11 15:29 | Progress Note ---
Assessment and Plan Cultures: Coronavirus PCR 05/28/2020: Positive 05/28/2020 blood culture: no growth 05/28/2020 tracheal aspirate: Usual respiratory bobo 05/28/2020 urine culture: No growth 06/03/2020 urine culture: No growth 06/09/2020 tracheal aspirate Klebsiella pneumoniae 06/28/2020 sputum culture positive for Klebsiella 06/28/2020 blood cultures no growth today 06/29/2020 COV2 PCR positive A/P: 64-year-old female with hypertension, diastolic CHF, pulmonary hypertension, diabetes, obesity hypoventilation syndrome, recent COVID pneumonia, was admitted to the emergency room after she called EMS due to difficulty breathing. On the way to the hospital, patient developed cardiac arrest and was treated as per ACLS protocol: #Cardiac arrest on 07/01/2020. #Sepsis on 06/27/2020: Resolved. After asystolic cardiac arrest on 06/26/2028. #Bilateral pneumonia: Secondary to COVID-19. Completed 5 days of IV Remdesivir 06/02/2020, completed steroids. ?Healthcare associated pneumonia, repeat sputum Klebsiella. Chest x-ray worsening infiltrates. Completed abx. #Acute hypoxic respiratory failure: On mechanical ventilation. Minimal vent settings. #HF: EF 45-50% #Mild LFT elevation: likely from COVID-19. #Severe constipation: Status post manual disimpaction. #Encephalopathy: ? Post cardiac arrest. Recs: -continue supportive care -overall guarded prognosis Mallory Wright MD, FACP [facility] C: [phone] O: [phone] F: [phone] Subjective Date of service: 07/11/20 Principal diagnosis: Ac hypoxemic resp failure; COVID-19; pneumonia; CHF; Pulm HTN; OHS; DM II Interval history: Remains intubated, on the vent, minimal settings. No fever. Objective - Exam Narrative Exam: Physical Exam (reviewed in chart due to PPE conservation) Constitutional: intubated, sedated, on the vent Head, Ears, Nose: normocephalic, atraumatic Eyes: limited due to PPE conservation strategy Neck: intubated Oral: intubated Cardiovascular: limited due to PPE conservation strategy Respiratory: limited due to PPE conservation strategy GI: limited due to PPE conservation strategy Musculoskeletal: limited due to PPE conservation strategy Skin: limited due to PPE conservation strategy Hem/Lymphatic: limited due to PPE conservation strategy Psych: no agitation Neurological: sedated, intubated, on the vent, exam limited - Constitutional Vitals: Vital Signs Temp Pulse Resp BP Pulse Ox 98.3 F 69 17 148/52 99 07/11/20 12:00 07/11/20 14:00 07/11/20 14:00 07/11/20 14:00 07/11/20 14:00 Temperature -Last 24 Hours Temperature 98.3 F Temperature 98.7 F Temperature 98.7 F Temperature 98.7 F Temperature 99.4 F Temperature 99 F Temperature 98.2 F - Labs CBC & Chem 7: 07/10/20 10:41 07/10/20 10:41 Labs: Abnormal lab results 07/10/20 07/10/20 07/11/20 Range/Units 12:25 18:10 00:28 POC Glucose 131 H 134 H 140 H (70-105) 07/11/20 07/11/20 Range/Units 05:57 12:14 POC Glucose 148 H 147 H (70-105)
--- NOTE | 2020-07-11 16:29 | Progress Note ---
Assessment and Plan Acute hypoxemic respiratory failure on MVS Coronavirus-19 infection. Bilateral pulmonary infiltrates, bilateral pneumonia plus likely element of Pulmonary edema. Bilateral pulmonary edema. Bilateral pleural effusions. History of congestive heart failure. Morbid obesity. History of pulmonary hypertension. History of hypertension. Diabetes. Obesity hypoventilation syndrome. Elevated serum inflammatory markers to include D-dimers and LDH levels. Hyperkalemia at presentation. Metabolic acidosis. Oropharyngeal dysphagia. (AMS remains rate limiting factor to safe extubation; tracheostomy needed) - surgery consulted for trach +/- PEG - azotemia per nephrology rec's - KUB shows NGT in good position - continue care as below otherwise while following mental status; - GI evaluation ongoing - continue Modafinil re: lethargy / somnolence - continue daytime PSV trials as tolerated - Daily SAT and SBT assessment as tolerated - continue to wean supplemental oxygen for target O2 sat's > 90% acutely - VAP bundle addressed - continue lung protective strategies - continue bronchodilators with pulmonary hygiene per RT - wean per pulmonary driven protocols otherwise - continue accuchecks resumed with glycemic control per SSI (While critically ill target blood glucose of 140-180 mg/dL; avoid hypoglycemia) - sedation prn for target RASS 0 to -1 - continue to avoid benzodiazepine's, reduce the possibility of delirium - AB's per ID rec's - prn analgesia per CPOT score - Maintenance of sleep-wake cycle, avoid delirium - continue enteral nutritional support at goal rate as tolerated - G.I. & VTE prophylaxis with heparin & famotidine - PT/OT/ROM exercises - continue mobility protocols for pressure ulcer prophylaxis - Monitor hemodynamics closely - continue other care per attending / other consultants - discharge planning ongoing concurrently (LTAC evaluation is appropriate) .... Re-evaluate in am & prn CONDITION: CRITICAL PROGNOSIS: GUARDED CODE STATUS: FULL CODE The high probability of a clinically significant, sudden or life-threatening deterioration of the [respiratory, cardiovascular, GI & neurologic] system(s) required my full and direct attention, intervention and personal management. The aggregate critical care time was [35] minutes without overlap. Time includes spent on; [x] Data Review and interpretation [x] Patient assessment and monitoring of vital signs [x] Documentation [x] Medication orders and management Subjective Date of service: 07/11/20 Principal diagnosis: Ac hypoxemic resp failure; COVID-19; pneumonia; CHF; Pulm HTN; OHS; DM II Interval history: Patient is seen today for: Ac hypoxemic resp failure; Coronavirus-19 infection; pneumonia; Pulmonary edema; Bilateral pleural effusions; CHF; Morbid obesity; pulmonary hypertension; OHS; DM II Seen and examined at bedside; 24hour events reviewed; nursing and respiratory care staff consulted; no adverse overnight events reported to me; resting peacefully in bed; remains on MVS; AMS is persistent; no new issues otherwise Objective Vital Signs - 12hr 07/11/20 07/11/20 07/11/20 04:31 05:01 05:31 Temperature Pulse Rate 79 82 81 Respiratory 12 14 13 Rate Blood Pressure 169/57 184/61 195/66 O2 Sat by Pulse 97 96 97 Oximetry 07/11/20 07/11/20 07/11/20 05:49 05:50 06:01 Temperature Pulse Rate 75 75 75 Respiratory 14 Rate Blood Pressure 195/66 195/66 184/59 O2 Sat by Pulse 97 Oximetry 07/11/20 07/11/20 07/11/20 06:31 07:01 07:31 Temperature Pulse Rate 78 79 80 Respiratory 11 L 10 L 14 Rate Blood Pressure 192/69 188/64 189/71 O2 Sat by Pulse 97 97 97 Oximetry 07/11/20 07/11/20 07/11/20 08:00 08:01 08:31 Temperature 98.7 F Pulse Rate 78 80 Respiratory 12 10 L Rate Blood Pressure 184/63 189/65 O2 Sat by Pulse 96 97 Oximetry 07/11/20 07/11/20 07/11/20 08:47 09:01 09:30 Temperature Pulse Rate 80 81 82 Respiratory 15 12 Rate Blood Pressure 189/65 182/62 182/62 O2 Sat by Pulse 99 97 99 Oximetry 07/11/20 07/11/20 07/11/20 10:01 10:30 10:59 Temperature Pulse Rate 86 81 79 Respiratory 18 10 L Rate Blood Pressure 194/62 194/62 190/66 O2 Sat by Pulse 96 99 Oximetry 07/11/20 07/11/20 07/11/20 11:01 11:31 11:41 Temperature Pulse Rate 83 83 83 Respiratory 15 14 Rate Blood Pressure 167/63 187/64 187/64 O2 Sat by Pulse 98 98 Oximetry 07/11/20 07/11/20 07/11/20 11:42 12:00 12:01 Temperature 98.3 F Pulse Rate 83 81 82 Respiratory 15 Rate Blood Pressure 187/64 179/72 179/72 O2 Sat by Pulse 100 97 Oximetry 07/11/20 07/11/20 07/11/20 12:31 12:59 13:00 Temperature Pulse Rate 79 79 72 Respiratory 14 15 Rate Blood Pressure 191/65 191/65 160/55 O2 Sat by Pulse 98 99 Oximetry 07/11/20 07/11/20 07/11/20 13:30 14:00 14:30 Temperature Pulse Rate 71 69 79 Respiratory 11 L 17 18 Rate Blood Pressure 154/52 148/52 154/52 O2 Sat by Pulse 100 99 99 Oximetry 07/11/20 07/11/20 07/11/20 15:00 15:30 16:00 Temperature 98.6 F Pulse Rate 78 77 74 Respiratory 16 16 19 Rate Blood Pressure 168/62 171/63 158/55 O2 Sat by Pulse 99 99 99 Oximetry Constitutional: appears uncomfortable, other (elderly looking obese female on HFNC with mildly increased respiratory effort at rest on MVS) Eyes: non-icteric ENT: oropharynx dry, other (ETT 23-24 cm AYAN) Neck: supple, no lymphadenopathy, no JVD, other (large neck circumference) Effort: mildly labored Ascultation: Bilateral: diminished breath sounds, rhonchi Percussion: Bilateral: not dull Cardiovascular: regular rate and rhythm, other (S1,S2) Gastrointestinal: normoactive bowel sounds, soft, non-tender, non-distended Integumentary: normal Extremities: no cyanosis, pink and warm, pulses normal, no ischemia or petechiae, edema (1+ bipedal) Neurologic: pupils equal and round, unable to assess, other (lethargic to obtunded) Psychiatric: other (unable to assess re: AMS) CBC and BMP: 07/10/20 10:41 07/10/20 10:41 ABG, PT/INR, D-dimer: ABG ABG pH 7.32 pH Units (7.350-7.450) L 07/05/20 13:05 POC ABG pCO2 35.8 mmHg (32.0-48.0) 07/01/20 05:02 ABG pCO2 47.0 mm Hg 07/05/20 13:05 POC ABG pO2 90.8 mmHg (83-108) 07/01/20 05:02 ABG pO2 78.3 mm Hg (80.0-90.0) L 07/05/20 13:05 POC ABG HCO3 22.1 07/01/20 05:02 ABG O2 Saturation 96.1 % (95.0-99.0) 07/05/20 13:05 PT/INR, D-dimer PT 14.2 Sec. (12.2-14.9) 05/29/20 15:10 INR 1.08 (0.87-1.13) 05/29/20 15:10 D-Dimer 2310.15 ng/mlDDU (0-234) H 06/29/20 14:45 Abnormal lab findings: Abnormal Labs 05/28/20 05/28/20 05/28/20 13:29 13:47 13:47 WBC RBC Hgb Hct MCHC RDW 15.3 H Lymph % (Auto) Nye % (Auto) Eos % (Auto) Lymph # Nye # Lymph # (Auto) Nye # (Auto) Seg Neutrophils % Seg Neuts % (Manual) Lymphocytes % (Manual) Seg Neutrophils # Seg Neutrophils # Man Lymphocytes # (Manual) Monocytes % (Manual) Eosinophils % (Manual) Monocytes # (Manual) Eosinophils # (Manual) D-Dimer Heparin Anti-Xa Level ABG pH POC ABG pCO2 POC ABG pO2 ABG pO2 ABG HCO3 ABG O2 Saturation ABG Base Excess ABG Hemoglobin ABG Oxyhemoglobin VBG pH Oxyhemoglobin Sodium Potassium 6.6 H* Chloride 109.2 H Carbon Dioxide 17 L BUN 29 H Creatinine 1.3 H Glucose 265 H POC Glucose 248 H Lactic Acid Calcium 8.1 L Ferritin AST 63 H Alkaline Phosphatase Magnesium Lactate Dehydrogenase Total Creatine Kinase 301 H CK-MB (CK-2) 4.3 H C-Reactive Protein Total Protein 5.4 L Albumin 2.6 L Troponin T HDL Cholesterol Urine WBC (Auto) Urine Creatinine Urine Total Protein Coronavirus (PCR) Crossmatch 05/28/20 05/28/20 05/28/20 13:47 13:47 14:46 WBC RBC Hgb Hct MCHC RDW Lymph % (Auto) Nye % (Auto) Eos % (Auto) Lymph # Nye # Lymph # (Auto) Nye # (Auto) Seg Neutrophils % Seg Neuts % (Manual) Lymphocytes % (Manual) Seg Neutrophils # Seg Neutrophils # Man Lymphocytes # (Manual) Monocytes % (Manual) Eosinophils % (Manual) Monocytes # (Manual) Eosinophils # (Manual) D-Dimer Heparin Anti-Xa Level ABG pH POC ABG pCO2 POC ABG pO2 ABG pO2 ABG HCO3 ABG O2 Saturation ABG Base Excess ABG Hemoglobin ABG Oxyhemoglobin VBG pH 7.152 L* Oxyhemoglobin Sodium Potassium 7.2 H* Chloride Carbon Dioxide BUN Creatinine Glucose POC Glucose Lactic Acid 3.40 H* Calcium Ferritin AST Alkaline Phosphatase Magnesium Lactate Dehydrogenase Total Creatine Kinase CK-MB (CK-2) C-Reactive Protein Total Protein Albumin Troponin T HDL Cholesterol Urine WBC (Auto) Urine Creatinine Urine Total Protein Coronavirus (PCR) Crossmatch 05/28/20 05/28/20 05/28/20 15:33 15:33 15:51 WBC RBC Hgb Hct MCHC RDW Lymph % (Auto) Nye % (Auto) Eos % (Auto) Lymph # Nye # Lymph # (Auto) Nye # (Auto) Seg Neutrophils % Seg Neuts % (Manual) Lymphocytes % (Manual) Seg Neutrophils # Seg Neutrophils # Man Lymphocytes # (Manual) Monocytes % (Manual) Eosinophils % (Manual) Monocytes # (Manual) Eosinophils # (Manual) D-Dimer 8780.43 H Heparin Anti-Xa Level ABG pH 7.284 L POC ABG pCO2 POC ABG pO2 ABG pO2 273.0 H ABG HCO3 ABG O2 Saturation 99.4 H ABG Base Excess -6.1 L ABG Hemoglobin 17.2 H ABG Oxyhemoglobin VBG pH Oxyhemoglobin Sodium Potassium Chloride Carbon Dioxide BUN Creatinine Glucose 152 H POC Glucose Lactic Acid Calcium Ferritin AST Alkaline Phosphatase Magnesium Lactate Dehydrogenase 365 H Total Creatine Kinase CK-MB (CK-2) C-Reactive Protein Total Protein Albumin Troponin T HDL Cholesterol Urine WBC (Auto) Urine Creatinine Urine Total Protein Coronavirus (PCR) Crossmatch 05/28/20 05/28/20 05/28/20 16:30 20:41 23:20 WBC RBC Hgb Hct MCHC RDW Lymph % (Auto) Nye % (Auto) Eos % (Auto) Lymph # Nye # Lymph # (Auto) Nye # (Auto) Seg Neutrophils % Seg Neuts % (Manual) Lymphocytes % (Manual) Seg Neutrophils # Seg Neutrophils # Man Lymphocytes # (Manual) Monocytes % (Manual) Eosinophils % (Manual) Monocytes # (Manual) Eosinophils # (Manual) D-Dimer Heparin Anti-Xa Level ABG pH POC ABG pCO2 POC ABG pO2 ABG pO2 ABG HCO3 ABG O2 Saturation ABG Base Excess ABG Hemoglobin ABG Oxyhemoglobin VBG pH Oxyhemoglobin Sodium Potassium Chloride Carbon Dioxide BUN Creatinine Glucose POC Glucose 225 H 224 H Lactic Acid Calcium Ferritin AST Alkaline Phosphatase Magnesium Lactate Dehydrogenase Total Creatine Kinase CK-MB (CK-2) C-Reactive Protein Total Protein Albumin Troponin T HDL Cholesterol Urine WBC (Auto) 17.0 H Urine Creatinine Urine Total Protein Coronavirus (PCR) Crossmatch 05/28/20 05/29/20 05/29/20 Unknown 04:35 04:43 WBC RBC 3.48 L Hgb 9.8 L Hct 29.4 L MCHC RDW 16.0 H Lymph % (Auto) 7.4 L Nye % (Auto) Eos % (Auto) Lymph # 0.7 L Nye # Lymph # (Auto) Nye # (Auto) Seg Neutrophils % 89.1 H Seg Neuts % (Manual) Lymphocytes % (Manual) Seg Neutrophils # 8.1 H Seg Neutrophils # Man Lymphocytes # (Manual) Monocytes % (Manual) Eosinophils % (Manual) Monocytes # (Manual) Eosinophils # (Manual) D-Dimer Heparin Anti-Xa Level ABG pH POC ABG pCO2 POC ABG pO2 ABG pO2 ABG HCO3 19.3 L ABG O2 Saturation ABG Base Excess -4.5 L ABG Hemoglobin 9.7 L ABG Oxyhemoglobin VBG pH Oxyhemoglobin Sodium Potassium Chloride Carbon Dioxide BUN Creatinine Glucose POC Glucose Lactic Acid Calcium Ferritin AST Alkaline Phosphatase Magnesium Lactate Dehydrogenase Total Creatine Kinase CK-MB (CK-2) C-Reactive Protein Total Protein Albumin Troponin T HDL Cholesterol Urine WBC (Auto) Urine Creatinine Urine Total Protein Coronavirus (PCR) Positive A Crossmatch 05/29/20 05/29/20 05/29/20 04:43 15:10 17:17 WBC RBC Hgb 9.3 L Hct 28.7 L MCHC RDW Lymph % (Auto) Nye % (Auto) Eos % (Auto) Lymph # Nye # Lymph # (Auto) Nye # (Auto) Seg Neutrophils % Seg Neuts % (Manual) Lymphocytes % (Manual) Seg Neutrophils # Seg Neutrophils # Man Lymphocytes # (Manual) Monocytes % (Manual) Eosinophils % (Manual) Monocytes # (Manual) Eosinophils # (Manual) D-Dimer Heparin Anti-Xa Level ABG pH POC ABG pCO2 POC ABG pO2 ABG pO2 ABG HCO3 ABG O2 Saturation ABG Base Excess ABG Hemoglobin ABG Oxyhemoglobin VBG pH Oxyhemoglobin Sodium Potassium Chloride 110.2 H Carbon Dioxide 18 L BUN 32 H Creatinine 1.4 H Glucose 180 H POC Glucose 147 H Lactic Acid Calcium Ferritin AST Alkaline Phosphatase Magnesium Lactate Dehydrogenase Total Creatine Kinase CK-MB (CK-2) C-Reactive Protein Total Protein Albumin Troponin T HDL Cholesterol Urine WBC (Auto) Urine Creatinine Urine Total Protein Coronavirus (PCR) Crossmatch 05/30/20 05/30/20 05/30/20 00:08 00:12 04:15 WBC RBC Hgb Hct MCHC RDW Lymph % (Auto) Nye % (Auto) Eos % (Auto) Lymph # Nye # Lymph # (Auto) Nye # (Auto) Seg Neutrophils % Seg Neuts % (Manual) Lymphocytes % (Manual) Seg Neutrophils # Seg Neutrophils # Man Lymphocytes # (Manual) Monocytes % (Manual) Eosinophils % (Manual) Monocytes # (Manual) Eosinophils # (Manual) D-Dimer Heparin Anti-Xa Level 0.71 H ABG pH 7.460 H POC ABG pCO2 POC ABG pO2 ABG pO2 106.0 H ABG HCO3 18.9 L ABG O2 Saturation ABG Base Excess -4.4 L ABG Hemoglobin 6.8 L ABG Oxyhemoglobin VBG pH Oxyhemoglobin Sodium Potassium Chloride Carbon Dioxide BUN Creatinine Glucose POC Glucose 195 H Lactic Acid Calcium Ferritin AST Alkaline Phosphatase Magnesium Lactate Dehydrogenase Total Creatine Kinase CK-MB (CK-2) C-Reactive Protein Total Protein Albumin Troponin T HDL Cholesterol Urine WBC (Auto) Urine Creatinine Urine Total Protein Coronavirus (PCR) Crossmatch 05/30/20 05/30/20 05/30/20 06:07 08:37 12:33 WBC RBC Hgb Hct MCHC RDW Lymph % (Auto) Nye % (Auto) Eos % (Auto) Lymph # Nye # Lymph # (Auto) Nye # (Auto) Seg Neutrophils % Seg Neuts % (Manual) Lymphocytes % (Manual) Seg Neutrophils # Seg Neutrophils # Man Lymphocytes # (Manual) Monocytes % (Manual) Eosinophils % (Manual) Monocytes # (Manual) Eosinophils # (Manual) D-Dimer Heparin Anti-Xa Level 0.85 H ABG pH POC ABG pCO2 POC ABG pO2 ABG pO2 ABG HCO3 ABG O2 Saturation ABG Base Excess ABG Hemoglobin ABG Oxyhemoglobin VBG pH Oxyhemoglobin Sodium Potassium Chloride Carbon Dioxide BUN Creatinine Glucose POC Glucose 182 H 187 H Lactic Acid Calcium Ferritin AST Alkaline Phosphatase Magnesium Lactate Dehydrogenase Total Creatine Kinase CK-MB (CK-2) C-Reactive Protein Total Protein Albumin Troponin T HDL Cholesterol Urine WBC (Auto) Urine Creatinine Urine Total Protein Coronavirus (PCR) Crossmatch 05/30/20 05/30/20 05/30/20 15:58 17:57 23:36 WBC RBC Hgb Hct MCHC RDW Lymph % (Auto) Nye % (Auto) Eos % (Auto) Lymph # Nye # Lymph # (Auto) Nye # (Auto) Seg Neutrophils % Seg Neuts % (Manual) Lymphocytes % (Manual) Seg Neutrophils # Seg Neutrophils # Man Lymphocytes # (Manual) Monocytes % (Manual) Eosinophils % (Manual) Monocytes # (Manual) Eosinophils # (Manual) D-Dimer Heparin Anti-Xa Level 1.03 H ABG pH POC ABG pCO2 POC ABG pO2 ABG pO2 ABG HCO3 ABG O2 Saturation ABG Base Excess ABG Hemoglobin ABG Oxyhemoglobin VBG pH Oxyhemoglobin Sodium Potassium Chloride Carbon Dioxide BUN Creatinine Glucose POC Glucose 208 H 185 H Lactic Acid Calcium Ferritin AST Alkaline Phosphatase Magnesium Lactate Dehydrogenase Total Creatine Kinase CK-MB (CK-2) C-Reactive Protein Total Protein Albumin Troponin T HDL Cholesterol Urine WBC (Auto) Urine Creatinine Urine Total Protein Coronavirus (PCR) Crossmatch 05/31/20 05/31/20 05/31/20 02:16 03:55 06:16 WBC RBC Hgb 9.2 L Hct 27.5 L MCHC RDW Lymph % (Auto) Nye % (Auto) Eos % (Auto) Lymph # Nye # Lymph # (Auto) Nye # (Auto) Seg Neutrophils % Seg Neuts % (Manual) Lymphocytes % (Manual) Seg Neutrophils # Seg Neutrophils # Man Lymphocytes # (Manual) Monocytes % (Manual) Eosinophils % (Manual) Monocytes # (Manual) Eosinophils # (Manual) D-Dimer Heparin Anti-Xa Level ABG pH POC ABG pCO2 POC ABG pO2 ABG pO2 94.7 H ABG HCO3 18.6 L ABG O2 Saturation ABG Base Excess -5.5 L ABG Hemoglobin 7.9 L ABG Oxyhemoglobin VBG pH Oxyhemoglobin Sodium Potassium Chloride Carbon Dioxide BUN Creatinine Glucose POC Glucose 160 H Lactic Acid Calcium Ferritin AST Alkaline Phosphatase Magnesium Lactate Dehydrogenase Total Creatine Kinase CK-MB (CK-2) C-Reactive Protein Total Protein Albumin Troponin T HDL Cholesterol Urine WBC (Auto) Urine Creatinine Urine Total Protein Coronavirus (PCR) Crossmatch 05/31/20 05/31/20 05/31/20 12:20 13:03 18:13 WBC RBC Hgb Hct MCHC RDW Lymph % (Auto) Nye % (Auto) Eos % (Auto) Lymph # Nye # Lymph # (Auto) Nye # (Auto) Seg Neutrophils % Seg Neuts % (Manual) Lymphocytes % (Manual) Seg Neutrophils # Seg Neutrophils # Man Lymphocytes # (Manual) Monocytes % (Manual) Eosinophils % (Manual) Monocytes # (Manual) Eosinophils # (Manual) D-Dimer Heparin Anti-Xa Level ABG pH POC ABG pCO2 POC ABG pO2 ABG pO2 ABG HCO3 ABG O2 Saturation ABG Base Excess ABG Hemoglobin ABG Oxyhemoglobin VBG pH Oxyhemoglobin Sodium Potassium Chloride Carbon Dioxide 18 L BUN 48 H Creatinine 1.6 H Glucose 115 H POC Glucose 128 H 159 H Lactic Acid Calcium 8.3 L Ferritin AST Alkaline Phosphatase Magnesium Lactate Dehydrogenase Total Creatine Kinase CK-MB (CK-2) C-Reactive Protein Total Protein 5.4 L Albumin 2.4 L Troponin T HDL Cholesterol Urine WBC (Auto) Urine Creatinine Urine Total Protein Coronavirus (PCR) Crossmatch 05/31/20 06/01/20 06/01/20 23:51 04:00 05:48 WBC RBC Hgb Hct MCHC RDW Lymph % (Auto) Nye % (Auto) Eos % (Auto) Lymph # Nye # Lymph # (Auto) Nye # (Auto) Seg Neutrophils % Seg Neuts % (Manual) Lymphocytes % (Manual) Seg Neutrophils # Seg Neutrophils # Man Lymphocytes # (Manual) Monocytes % (Manual) Eosinophils % (Manual) Monocytes # (Manual) Eosinophils # (Manual) D-Dimer Heparin Anti-Xa Level ABG pH POC ABG pCO2 POC ABG pO2 ABG pO2 109.8 H ABG HCO3 18.8 L ABG O2 Saturation ABG Base Excess -5.9 L ABG Hemoglobin 7.8 L ABG Oxyhemoglobin VBG pH Oxyhemoglobin Sodium Potassium Chloride Carbon Dioxide BUN Creatinine Glucose POC Glucose 171 H 133 H Lactic Acid Calcium Ferritin AST Alkaline Phosphatase Magnesium Lactate Dehydrogenase Total Creatine Kinase CK-MB (CK-2) C-Reactive Protein Total Protein Albumin Troponin T HDL Cholesterol Urine WBC (Auto) Urine Creatinine Urine Total Protein Coronavirus (PCR) Crossmatch 06/01/20 06/01/20 06/02/20 12:28 17:29 00:08 WBC RBC Hgb Hct MCHC RDW Lymph % (Auto) Nye % (Auto) Eos % (Auto) Lymph # Nye # Lymph # (Auto) Nye # (Auto) Seg Neutrophils % Seg Neuts % (Manual) Lymphocytes % (Manual) Seg Neutrophils # Seg Neutrophils # Man Lymphocytes # (Manual) Monocytes % (Manual) Eosinophils % (Manual) Monocytes # (Manual) Eosinophils # (Manual) D-Dimer Heparin Anti-Xa Level ABG pH POC ABG pCO2 POC ABG pO2 ABG pO2 ABG HCO3 ABG O2 Saturation ABG Base Excess ABG Hemoglobin ABG Oxyhemoglobin VBG pH Oxyhemoglobin Sodium Potassium Chloride Carbon Dioxide BUN Creatinine Glucose POC Glucose 199 H 209 H 162 H Lactic Acid Calcium Ferritin AST Alkaline Phosphatase Magnesium Lactate Dehydrogenase Total Creatine Kinase CK-MB (CK-2) C-Reactive Protein Total Protein Albumin Troponin T HDL Cholesterol Urine WBC (Auto) Urine Creatinine Urine Total Protein Coronavirus (PCR) Crossmatch 06/02/20 06/02/20 06/02/20 04:20 04:20 04:44 WBC RBC Hgb 10.0 L Hct MCHC RDW Lymph % (Auto) Nye % (Auto) Eos % (Auto) Lymph # Nye # Lymph # (Auto) Nye # (Auto) Seg Neutrophils % Seg Neuts % (Manual) Lymphocytes % (Manual) Seg Neutrophils # Seg Neutrophils # Man Lymphocytes # (Manual) Monocytes % (Manual) Eosinophils % (Manual) Monocytes # (Manual) Eosinophils # (Manual) D-Dimer Heparin Anti-Xa Level 0.10 L ABG pH POC ABG pCO2 POC ABG pO2 ABG pO2 150.6 H ABG HCO3 ABG O2 Saturation ABG Base Excess -4.1 L ABG Hemoglobin 11.8 L ABG Oxyhemoglobin VBG pH Oxyhemoglobin Sodium Potassium Chloride Carbon Dioxide BUN Creatinine Glucose POC Glucose Lactic Acid Calcium Ferritin AST Alkaline Phosphatase Magnesium Lactate Dehydrogenase Total Creatine Kinase CK-MB (CK-2) C-Reactive Protein Total Protein Albumin Troponin T HDL Cholesterol Urine WBC (Auto) Urine Creatinine Urine Total Protein Coronavirus (PCR) Crossmatch 06/02/20 06/02/20 06/02/20 05:53 12:04 13:49 WBC RBC Hgb Hct MCHC RDW Lymph % (Auto) Nye % (Auto) Eos % (Auto) Lymph # Nye # Lymph # (Auto) Nye # (Auto) Seg Neutrophils % Seg Neuts % (Manual) Lymphocytes % (Manual) Seg Neutrophils # Seg Neutrophils # Man Lymphocytes # (Manual) Monocytes % (Manual) Eosinophils % (Manual) Monocytes # (Manual) Eosinophils # (Manual) D-Dimer Heparin Anti-Xa Level 0.28 L ABG pH POC ABG pCO2 POC ABG pO2 ABG pO2 ABG HCO3 ABG O2 Saturation ABG Base Excess ABG Hemoglobin ABG Oxyhemoglobin VBG pH Oxyhemoglobin Sodium Potassium Chloride Carbon Dioxide BUN Creatinine Glucose POC Glucose 149 H 220 H Lactic Acid Calcium Ferritin AST Alkaline Phosphatase Magnesium Lactate Dehydrogenase Total Creatine Kinase CK-MB (CK-2) C-Reactive Protein Total Protein Albumin Troponin T HDL Cholesterol Urine WBC (Auto) Urine Creatinine Urine Total Protein Coronavirus (PCR) Crossmatch 06/02/20 06/02/20 06/03/20 13:49 18:31 00:42 WBC RBC Hgb Hct MCHC RDW Lymph % (Auto) Nye % (Auto) Eos % (Auto) Lymph # Nye # Lymph # (Auto) Nye # (Auto) Seg Neutrophils % Seg Neuts % (Manual) Lymphocytes % (Manual) Seg Neutrophils # Seg Neutrophils # Man Lymphocytes # (Manual) Monocytes % (Manual) Eosinophils % (Manual) Monocytes # (Manual) Eosinophils # (Manual) D-Dimer 769.68 H Heparin Anti-Xa Level ABG pH POC ABG pCO2 POC ABG pO2 ABG pO2 ABG HCO3 ABG O2 Saturation ABG Base Excess ABG Hemoglobin ABG Oxyhemoglobin VBG pH Oxyhemoglobin Sodium Potassium Chloride Carbon Dioxide BUN Creatinine Glucose POC Glucose 225 H 212 H Lactic Acid Calcium Ferritin AST Alkaline Phosphatase Magnesium Lactate Dehydrogenase Total Creatine Kinase CK-MB (CK-2) C-Reactive Protein Total Protein Albumin Troponin T HDL Cholesterol Urine WBC (Auto) Urine Creatinine Urine Total Protein Coronavirus (PCR) Crossmatch 06/03/20 06/03/20 06/03/20 05:16 05:16 05:25 WBC 11.4 H RBC Hgb Hct MCHC RDW 16.4 H Lymph % (Auto) Nye % (Auto) Eos % (Auto) Lymph # Nye # Lymph # (Auto) Nye # (Auto) Seg Neutrophils % Seg Neuts % (Manual) Lymphocytes % (Manual) Seg Neutrophils # Seg Neutrophils # Man Lymphocytes # (Manual) Monocytes % (Manual) Eosinophils % (Manual) Monocytes # (Manual) Eosinophils # (Manual) D-Dimer Heparin Anti-Xa Level ABG pH POC ABG pCO2 POC ABG pO2 ABG pO2 160.9 H ABG HCO3 19.4 L ABG O2 Saturation ABG Base Excess -4.9 L ABG Hemoglobin 7.0 L ABG Oxyhemoglobin VBG pH Oxyhemoglobin Sodium Potassium Chloride Carbon Dioxide 18 L BUN 65 H Creatinine 2.0 H Glucose 175 H POC Glucose Lactic Acid Calcium 8.0 L Ferritin AST Alkaline Phosphatase Magnesium Lactate Dehydrogenase Total Creatine Kinase CK-MB (CK-2) C-Reactive Protein Total Protein 5.5 L Albumin 2.2 L Troponin T HDL Cholesterol Urine WBC (Auto) Urine Creatinine Urine Total Protein Coronavirus (PCR) Crossmatch 06/03/20 06/03/20 06/03/20 06:07 11:58 18:24 WBC RBC Hgb Hct MCHC RDW Lymph % (Auto) Nye % (Auto) Eos % (Auto) Lymph # Nye # Lymph # (Auto) Nye # (Auto) Seg Neutrophils % Seg Neuts % (Manual) Lymphocytes % (Manual) Seg Neutrophils # Seg Neutrophils # Man Lymphocytes # (Manual) Monocytes % (Manual) Eosinophils % (Manual) Monocytes # (Manual) Eosinophils # (Manual) D-Dimer Heparin Anti-Xa Level ABG pH POC ABG pCO2 POC ABG pO2 ABG pO2 ABG HCO3 ABG O2 Saturation ABG Base Excess ABG Hemoglobin ABG Oxyhemoglobin VBG pH Oxyhemoglobin Sodium Potassium Chloride Carbon Dioxide BUN Creatinine Glucose POC Glucose 177 H 163 H 211 H Lactic Acid Calcium Ferritin AST Alkaline Phosphatase Magnesium Lactate Dehydrogenase Total Creatine Kinase CK-MB (CK-2) C-Reactive Protein Total Protein Albumin Troponin T HDL Cholesterol Urine WBC (Auto) Urine Creatinine Urine Total Protein Coronavirus (PCR) Crossmatch 06/03/20 06/03/20 06/04/20 21:50 Unknown 00:26 WBC RBC Hgb Hct MCHC RDW Lymph % (Auto) Nye % (Auto) Eos % (Auto) Lymph # Nye # Lymph # (Auto) Nye # (Auto) Seg Neutrophils % Seg Neuts % (Manual) Lymphocytes % (Manual) Seg Neutrophils # Seg Neutrophils # Man Lymphocytes # (Manual) Monocytes % (Manual) Eosinophils % (Manual) Monocytes # (Manual) Eosinophils # (Manual) D-Dimer Heparin Anti-Xa Level ABG pH POC ABG pCO2 POC ABG pO2 ABG pO2 ABG HCO3 ABG O2 Saturation ABG Base Excess ABG Hemoglobin ABG Oxyhemoglobin VBG pH Oxyhemoglobin Sodium 135 L Potassium Chloride Carbon Dioxide 18 L BUN Creatinine Glucose POC Glucose 241 H Lactic Acid Calcium Ferritin AST Alkaline Phosphatase Magnesium Lactate Dehydrogenase Total Creatine Kinase CK-MB (CK-2) C-Reactive Protein Total Protein Albumin Troponin T HDL Cholesterol Urine WBC (Auto) 11.0 H Urine Creatinine Urine Total Protein Coronavirus (PCR) Crossmatch 06/04/20 06/04/20 06/04/20 03:35 04:19 04:19 WBC RBC 3.15 L Hgb 8.9 L Hct 26.8 L D MCHC RDW 15.9 H Lymph % (Auto) 6.0 L Nye % (Auto) Eos % (Auto) Lymph # 0.6 L Nye # Lymph # (Auto) Nye # (Auto) Seg Neutrophils % 86.6 H Seg Neuts % (Manual) Lymphocytes % (Manual) Seg Neutrophils # 9.1 H Seg Neutrophils # Man Lymphocytes # (Manual) Monocytes % (Manual) Eosinophils % (Manual) Monocytes # (Manual) Eosinophils # (Manual) D-Dimer Heparin Anti-Xa Level ABG pH 7.331 L POC ABG pCO2 POC ABG pO2 ABG pO2 ABG HCO3 ABG O2 Saturation ABG Base Excess -4.7 L ABG Hemoglobin 11.0 L ABG Oxyhemoglobin VBG pH Oxyhemoglobin 93.9 L Sodium 136 L Potassium Chloride Carbon Dioxide 20 L BUN 73 H Creatinine 2.0 H Glucose 192 H POC Glucose Lactic Acid Calcium 8.0 L Ferritin AST Alkaline Phosphatase Magnesium Lactate Dehydrogenase 271 H Total Creatine Kinase CK-MB (CK-2) C-Reactive Protein 2.20 H Total Protein 5.0 L Albumin 2.0 L Troponin T HDL Cholesterol Urine WBC (Auto) Urine Creatinine Urine Total Protein Coronavirus (PCR) Crossmatch 06/04/20 06/04/20 06/04/20 04:19 05:51 11:48 WBC RBC Hgb Hct MCHC RDW Lymph % (Auto) Nye % (Auto) Eos % (Auto) Lymph # Nye # Lymph # (Auto) Nye # (Auto) Seg Neutrophils % Seg Neuts % (Manual) Lymphocytes % (Manual) Seg Neutrophils # Seg Neutrophils # Man Lymphocytes # (Manual) Monocytes % (Manual) Eosinophils % (Manual) Monocytes # (Manual) Eosinophils # (Manual) D-Dimer 414.52 H Heparin Anti-Xa Level ABG pH POC ABG pCO2 POC ABG pO2 ABG pO2 ABG HCO3 ABG O2 Saturation ABG Base Excess ABG Hemoglobin ABG Oxyhemoglobin VBG pH Oxyhemoglobin Sodium Potassium Chloride Carbon Dioxide BUN Creatinine Glucose POC Glucose 179 H 213 H Lactic Acid Calcium Ferritin AST Alkaline Phosphatase Magnesium Lactate Dehydrogenase Total Creatine Kinase CK-MB (CK-2) C-Reactive Protein Total Protein Albumin Troponin T HDL Cholesterol Urine WBC (Auto) Urine Creatinine Urine Total Protein Coronavirus (PCR) Crossmatch 06/04/20 06/05/20 06/05/20 18:25 00:16 05:00 WBC RBC Hgb Hct MCHC RDW Lymph % (Auto) Nye % (Auto) Eos % (Auto) Lymph # Nye # Lymph # (Auto) Nye # (Auto) Seg Neutrophils % Seg Neuts % (Manual) Lymphocytes % (Manual) Seg Neutrophils # Seg Neutrophils # Man Lymphocytes # (Manual) Monocytes % (Manual) Eosinophils % (Manual) Monocytes # (Manual) Eosinophils # (Manual) D-Dimer Heparin Anti-Xa Level ABG pH 7.286 L POC ABG pCO2 POC ABG pO2 ABG pO2 96.2 H ABG HCO3 ABG O2 Saturation ABG Base Excess -6.3 L ABG Hemoglobin 8.8 L ABG Oxyhemoglobin VBG pH Oxyhemoglobin 94.8 L Sodium Potassium Chloride Carbon Dioxide BUN Creatinine Glucose POC Glucose 238 H 183 H Lactic Acid Calcium Ferritin AST Alkaline Phosphatase Magnesium Lactate Dehydrogenase Total Creatine Kinase CK-MB (CK-2) C-Reactive Protein Total Protein Albumin Troponin T HDL Cholesterol Urine WBC (Auto) Urine Creatinine Urine Total Protein Coronavirus (PCR) Crossmatch 06/05/20 06/05/20 06/05/20 05:39 07:25 07:25 WBC RBC 2.97 L Hgb 8.7 L Hct 25.7 L MCHC RDW 16.0 H Lymph % (Auto) 8.8 L Nye % (Auto) 13.3 H Eos % (Auto) Lymph # 0.8 L Nye # 1.3 H Lymph # (Auto) Nye # (Auto) Seg Neutrophils % 77.3 H Seg Neuts % (Manual) Lymphocytes % (Manual) Seg Neutrophils # Seg Neutrophils # Man Lymphocytes # (Manual) Monocytes % (Manual) Eosinophils % (Manual) Monocytes # (Manual) Eosinophils # (Manual) D-Dimer Heparin Anti-Xa Level ABG pH POC ABG pCO2 POC ABG pO2 ABG pO2 ABG HCO3 ABG O2 Saturation ABG Base Excess ABG Hemoglobin ABG Oxyhemoglobin VBG pH Oxyhemoglobin Sodium 133 L Potassium Chloride Carbon Dioxide 17 L BUN 89 H Creatinine 2.8 H Glucose 176 H POC Glucose 149 H Lactic Acid Calcium 7.7 L Ferritin AST Alkaline Phosphatase Magnesium Lactate Dehydrogenase Total Creatine Kinase CK-MB (CK-2) C-Reactive Protein Total Protein 4.2 L Albumin 1.9 L Troponin T HDL Cholesterol Urine WBC (Auto) Urine Creatinine Urine Total Protein Coronavirus (PCR) Crossmatch 06/05/20 06/05/20 06/05/20 07:25 12:05 15:41 WBC RBC Hgb Hct MCHC RDW Lymph % (Auto) Nye % (Auto) Eos % (Auto) Lymph # Nye # Lymph # (Auto) Nye # (Auto) Seg Neutrophils % Seg Neuts % (Manual) Lymphocytes % (Manual) Seg Neutrophils # Seg Neutrophils # Man Lymphocytes # (Manual) Monocytes % (Manual) Eosinophils % (Manual) Monocytes # (Manual) Eosinophils # (Manual) D-Dimer Heparin Anti-Xa Level 0.76 H 0.81 H ABG pH POC ABG pCO2 POC ABG pO2 ABG pO2 ABG HCO3 ABG O2 Saturation ABG Base Excess ABG Hemoglobin ABG Oxyhemoglobin VBG pH Oxyhemoglobin Sodium Potassium Chloride Carbon Dioxide BUN Creatinine Glucose POC Glucose 198 H Lactic Acid Calcium Ferritin AST Alkaline Phosphatase Magnesium Lactate Dehydrogenase Total Creatine Kinase CK-MB (CK-2) C-Reactive Protein Total Protein Albumin Troponin T HDL Cholesterol Urine WBC (Auto) Urine Creatinine Urine Total Protein Coronavirus (PCR) Crossmatch 06/05/20 06/05/20 06/06/20 18:08 23:25 04:00 WBC RBC Hgb Hct MCHC RDW Lymph % (Auto) Nye % (Auto) Eos % (Auto) Lymph # Nye # Lymph # (Auto) Nye # (Auto) Seg Neutrophils % Seg Neuts % (Manual) Lymphocytes % (Manual) Seg Neutrophils # Seg Neutrophils # Man Lymphocytes # (Manual) Monocytes % (Manual) Eosinophils % (Manual) Monocytes # (Manual) Eosinophils # (Manual) D-Dimer Heparin Anti-Xa Level ABG pH POC ABG pCO2 POC ABG pO2 ABG pO2 ABG HCO3 ABG O2 Saturation ABG Base Excess ABG Hemoglobin ABG Oxyhemoglobin VBG pH Oxyhemoglobin Sodium Potassium Chloride Carbon Dioxide BUN Creatinine Glucose POC Glucose 223 H 169 H Lactic Acid Calcium Ferritin AST Alkaline Phosphatase Magnesium Lactate Dehydrogenase Total Creatine Kinase CK-MB (CK-2) C-Reactive Protein Total Protein Albumin Troponin T HDL Cholesterol Urine WBC (Auto) 15.0 H Urine Creatinine Urine Total Protein Coronavirus (PCR) Crossmatch 06/06/20 06/06/20 06/06/20 04:00 05:33 05:38 WBC RBC 2.97 L Hgb 8.7 L Hct 26.8 L MCHC RDW 16.8 H Lymph % (Auto) Nye % (Auto) Eos % (Auto) Lymph # Nye # Lymph # (Auto) Nye # (Auto) Seg Neutrophils % Seg Neuts % (Manual) Lymphocytes % (Manual) Seg Neutrophils # Seg Neutrophils # Man Lymphocytes # (Manual) Monocytes % (Manual) Eosinophils % (Manual) Monocytes # (Manual) Eosinophils # (Manual) D-Dimer Heparin Anti-Xa Level ABG pH POC ABG pCO2 POC ABG pO2 ABG pO2 ABG HCO3 ABG O2 Saturation ABG Base Excess ABG Hemoglobin ABG Oxyhemoglobin VBG pH Oxyhemoglobin Sodium Potassium Chloride Carbon Dioxide BUN Creatinine Glucose POC Glucose 186 H Lactic Acid Calcium Ferritin AST Alkaline Phosphatase Magnesium Lactate Dehydrogenase Total Creatine Kinase CK-MB (CK-2) C-Reactive Protein Total Protein Albumin Troponin T HDL Cholesterol Urine WBC (Auto) Urine Creatinine 82.2 H Urine Total Protein 196 H Coronavirus (PCR) Crossmatch 06/06/20 06/06/20 06/06/20 05:38 12:25 17:03 WBC RBC Hgb Hct MCHC RDW Lymph % (Auto) Nye % (Auto) Eos % (Auto) Lymph # Nye # Lymph # (Auto) Nye # (Auto) Seg Neutrophils % Seg Neuts % (Manual) Lymphocytes % (Manual) Seg Neutrophils # Seg Neutrophils # Man Lymphocytes # (Manual) Monocytes % (Manual) Eosinophils % (Manual) Monocytes # (Manual) Eosinophils # (Manual) D-Dimer Heparin Anti-Xa Level ABG pH POC ABG pCO2 POC ABG pO2 ABG pO2 ABG HCO3 ABG O2 Saturation ABG Base Excess ABG Hemoglobin ABG Oxyhemoglobin VBG pH Oxyhemoglobin Sodium 134 L Potassium 5.2 H Chloride Carbon Dioxide 18 L BUN 97 H Creatinine 2.5 H Glucose 193 H POC Glucose 239 H 252 H Lactic Acid Calcium 7.5 L Ferritin AST Alkaline Phosphatase Magnesium Lactate Dehydrogenase Total Creatine Kinase CK-MB (CK-2) C-Reactive Protein Total Protein 4.1 L Albumin 1.9 L Troponin T HDL Cholesterol Urine WBC (Auto) Urine Creatinine Urine Total Protein Coronavirus (PCR) Crossmatch 06/07/20 06/07/20 06/07/20 00:16 01:49 04:00 WBC RBC 2.91 L Hgb 8.4 L Hct 25.0 L MCHC RDW 16.1 H Lymph % (Auto) 5.7 L Nye % (Auto) 10.5 H Eos % (Auto) Lymph # 0.6 L Nye # 1.1 H Lymph # (Auto) Nye # (Auto) Seg Neutrophils % 83.6 H Seg Neuts % (Manual) Lymphocytes % (Manual) Seg Neutrophils # 9.1 H Seg Neutrophils # Man Lymphocytes # (Manual) Monocytes % (Manual) Eosinophils % (Manual) Monocytes # (Manual) Eosinophils # (Manual) D-Dimer Heparin Anti-Xa Level 0.26 L ABG pH POC ABG pCO2 POC ABG pO2 ABG pO2 ABG HCO3 ABG O2 Saturation ABG Base Excess ABG Hemoglobin ABG Oxyhemoglobin VBG pH Oxyhemoglobin Sodium Potassium Chloride Carbon Dioxide BUN Creatinine Glucose POC Glucose 173 H Lactic Acid Calcium Ferritin AST Alkaline Phosphatase Magnesium Lactate Dehydrogenase Total Creatine Kinase CK-MB (CK-2) C-Reactive Protein Total Protein Albumin Troponin T HDL Cholesterol Urine WBC (Auto) Urine Creatinine Urine Total Protein Coronavirus (PCR) Crossmatch 06/07/20 06/07/20 06/07/20 04:00 04:54 05:51 WBC RBC Hgb Hct MCHC RDW Lymph % (Auto) Nye % (Auto) Eos % (Auto) Lymph # Nye # Lymph # (Auto) Nye # (Auto) Seg Neutrophils % Seg Neuts % (Manual) Lymphocytes % (Manual) Seg Neutrophils # Seg Neutrophils # Man Lymphocytes # (Manual) Monocytes % (Manual) Eosinophils % (Manual) Monocytes # (Manual) Eosinophils # (Manual) D-Dimer Heparin Anti-Xa Level ABG pH 7.317 L POC ABG pCO2 POC ABG pO2 ABG pO2 71.4 L ABG HCO3 ABG O2 Saturation 94.3 L ABG Base Excess -4.8 L ABG Hemoglobin 7.1 L ABG Oxyhemoglobin VBG pH Oxyhemoglobin 92.2 L Sodium 133 L Potassium Chloride Carbon Dioxide 18 L BUN 100 H Creatinine 2.5 H Glucose 158 H POC Glucose 168 H Lactic Acid Calcium 7.6 L Ferritin AST Alkaline Phosphatase Magnesium Lactate Dehydrogenase Total Creatine Kinase CK-MB (CK-2) C-Reactive Protein Total Protein 4.7 L Albumin 2.0 L Troponin T HDL Cholesterol Urine WBC (Auto) Urine Creatinine Urine Total Protein Coronavirus (PCR) Crossmatch 06/07/20 06/07/20 06/07/20 12:03 17:17 20:10 WBC RBC Hgb Hct MCHC RDW Lymph % (Auto) Nye % (Auto) Eos % (Auto) Lymph # Nye # Lymph # (Auto) Nye # (Auto) Seg Neutrophils % Seg Neuts % (Manual) Lymphocytes % (Manual) Seg Neutrophils # Seg Neutrophils # Man Lymphocytes # (Manual) Monocytes % (Manual) Eosinophils % (Manual) Monocytes # (Manual) Eosinophils # (Manual) D-Dimer Heparin Anti-Xa Level 0.17 L ABG pH POC ABG pCO2 POC ABG pO2 ABG pO2 ABG HCO3 ABG O2 Saturation ABG Base Excess ABG Hemoglobin ABG Oxyhemoglobin VBG pH Oxyhemoglobin Sodium Potassium Chloride Carbon Dioxide BUN Creatinine Glucose POC Glucose 276 H 281 H Lactic Acid Calcium Ferritin AST Alkaline Phosphatase Magnesium Lactate Dehydrogenase Total Creatine Kinase CK-MB (CK-2) C-Reactive Protein Total Protein Albumin Troponin T HDL Cholesterol Urine WBC (Auto) Urine Creatinine Urine Total Protein Coronavirus (PCR) Crossmatch 06/08/20 06/08/20 06/08/20 00:02 04:47 04:47 WBC 16.4 H RBC 3.07 L Hgb 8.6 L Hct 26.5 L MCHC RDW 16.3 H Lymph % (Auto) Nye % (Auto) Eos % (Auto) Lymph # Nye # Lymph # (Auto) Nye # (Auto) Seg Neutrophils % Seg Neuts % (Manual) 90.0 H Lymphocytes % (Manual) 3.0 L Seg Neutrophils # Seg Neutrophils # Man 14.8 H Lymphocytes # (Manual) 0.5 L Monocytes % (Manual) Eosinophils % (Manual) Monocytes # (Manual) 1.1 H Eosinophils # (Manual) D-Dimer Heparin Anti-Xa Level ABG pH POC ABG pCO2 POC ABG pO2 ABG pO2 ABG HCO3 ABG O2 Saturation ABG Base Excess ABG Hemoglobin ABG Oxyhemoglobin VBG pH Oxyhemoglobin Sodium 129 L Potassium Chloride 95.6 L Carbon Dioxide 17 L BUN 106 H Creatinine 2.5 H Glucose 213 H POC Glucose 242 H Lactic Acid Calcium 7.6 L Ferritin AST Alkaline Phosphatase Magnesium Lactate Dehydrogenase Total Creatine Kinase CK-MB (CK-2) C-Reactive Protein Total Protein 5.0 L Albumin 2.1 L Troponin T HDL Cholesterol Urine WBC (Auto) Urine Creatinine Urine Total Protein Coronavirus (PCR) Crossmatch 06/08/20 06/08/20 06/08/20 05:40 11:55 17:54 WBC RBC Hgb Hct MCHC RDW Lymph % (Auto) Nye % (Auto) Eos % (Auto) Lymph # Nye # Lymph # (Auto) Nye # (Auto) Seg Neutrophils % Seg Neuts % (Manual) Lymphocytes % (Manual) Seg Neutrophils # Seg Neutrophils # Man Lymphocytes # (Manual) Monocytes % (Manual) Eosinophils % (Manual) Monocytes # (Manual) Eosinophils # (Manual) D-Dimer Heparin Anti-Xa Level ABG pH POC ABG pCO2 POC ABG pO2 ABG pO2 ABG HCO3 ABG O2 Saturation ABG Base Excess ABG Hemoglobin ABG Oxyhemoglobin VBG pH Oxyhemoglobin Sodium Potassium Chloride Carbon Dioxide BUN Creatinine Glucose POC Glucose 221 H 218 H 163 H Lactic Acid Calcium Ferritin AST Alkaline Phosphatase Magnesium Lactate Dehydrogenase Total Creatine Kinase CK-MB (CK-2) C-Reactive Protein Total Protein Albumin Troponin T HDL Cholesterol Urine WBC (Auto) Urine Creatinine Urine Total Protein Coronavirus (PCR) Crossmatch 06/08/20 06/09/20 06/09/20 22:01 00:09 05:16 WBC 19.0 H RBC 3.35 L Hgb 9.2 L Hct 28.5 L MCHC RDW 16.3 H Lymph % (Auto) Nye % (Auto) Eos % (Auto) Lymph # Nye # Lymph # (Auto) Nye # (Auto) Seg Neutrophils % Seg Neuts % (Manual) 85.0 H Lymphocytes % (Manual) 7.0 L Seg Neutrophils # Seg Neutrophils # Man 16.2 H Lymphocytes # (Manual) Monocytes % (Manual) Eosinophils % (Manual) Monocytes # (Manual) 1.3 H Eosinophils # (Manual) D-Dimer Heparin Anti-Xa Level ABG pH POC ABG pCO2 POC ABG pO2 ABG pO2 ABG HCO3 ABG O2 Saturation ABG Base Excess ABG Hemoglobin ABG Oxyhemoglobin VBG pH Oxyhemoglobin Sodium Potassium Chloride Carbon Dioxide BUN Creatinine Glucose POC Glucose 182 H 150 H Lactic Acid Calcium Ferritin AST Alkaline Phosphatase Magnesium Lactate Dehydrogenase Total Creatine Kinase CK-MB (CK-2) C-Reactive Protein Total Protein Albumin Troponin T HDL Cholesterol Urine WBC (Auto) Urine Creatinine Urine Total Protein Coronavirus (PCR) Crossmatch 06/09/20 06/09/20 06/09/20 05:16 05:24 11:29 WBC RBC Hgb Hct MCHC RDW Lymph % (Auto) Nye % (Auto) Eos % (Auto) Lymph # Nye # Lymph # (Auto) Nye # (Auto) Seg Neutrophils % Seg Neuts % (Manual) Lymphocytes % (Manual) Seg Neutrophils # Seg Neutrophils # Man Lymphocytes # (Manual) Monocytes % (Manual) Eosinophils % (Manual) Monocytes # (Manual) Eosinophils # (Manual) D-Dimer Heparin Anti-Xa Level ABG pH POC ABG pCO2 POC ABG pO2 ABG pO2 ABG HCO3 ABG O2 Saturation ABG Base Excess ABG Hemoglobin ABG Oxyhemoglobin VBG pH Oxyhemoglobin Sodium 133 L Potassium Chloride Carbon Dioxide 19 L BUN 109 H Creatinine 2.1 H Glucose 133 H POC Glucose 128 H 119 H Lactic Acid Calcium 7.7 L Ferritin AST Alkaline Phosphatase < 5 L Magnesium Lactate Dehydrogenase Total Creatine Kinase CK-MB (CK-2) C-Reactive Protein Total Protein 4.6 L Albumin < 0.2 L Troponin T HDL Cholesterol Urine WBC (Auto) Urine Creatinine Urine Total Protein Coronavirus (PCR) Crossmatch 06/09/20 06/10/20 06/10/20 17:32 00:00 05:49 WBC RBC Hgb Hct MCHC RDW Lymph % (Auto) Nye % (Auto) Eos % (Auto) Lymph # Nye # Lymph # (Auto) Nye # (Auto) Seg Neutrophils % Seg Neuts % (Manual) Lymphocytes % (Manual) Seg Neutrophils # Seg Neutrophils # Man Lymphocytes # (Manual) Monocytes % (Manual) Eosinophils % (Manual) Monocytes # (Manual) Eosinophils # (Manual) D-Dimer Heparin Anti-Xa Level 0.19 L ABG pH POC ABG pCO2 POC ABG pO2 ABG pO2 ABG HCO3 ABG O2 Saturation ABG Base Excess ABG Hemoglobin ABG Oxyhemoglobin VBG pH Oxyhemoglobin Sodium Potassium Chloride Carbon Dioxide BUN Creatinine Glucose POC Glucose 106 H 117 H Lactic Acid Calcium Ferritin AST Alkaline Phosphatase Magnesium Lactate Dehydrogenase Total Creatine Kinase CK-MB (CK-2) C-Reactive Protein Total Protein Albumin Troponin T HDL Cholesterol Urine WBC (Auto) Urine Creatinine Urine Total Protein Coronavirus (PCR) Crossmatch 06/10/20 06/10/20 06/10/20 05:54 07:40 11:40 WBC RBC Hgb Hct MCHC RDW Lymph % (Auto) Nye % (Auto) Eos % (Auto) Lymph # Nye # Lymph # (Auto) Nye # (Auto) Seg Neutrophils % Seg Neuts % (Manual) Lymphocytes % (Manual) Seg Neutrophils # Seg Neutrophils # Man Lymphocytes # (Manual) Monocytes % (Manual) Eosinophils % (Manual) Monocytes # (Manual) Eosinophils # (Manual) D-Dimer Heparin Anti-Xa Level ABG pH POC ABG pCO2 POC ABG pO2 ABG pO2 ABG HCO3 ABG O2 Saturation ABG Base Excess ABG Hemoglobin ABG Oxyhemoglobin VBG pH Oxyhemoglobin Sodium 146 H D Potassium Chloride Carbon Dioxide 20 L BUN 99 H Creatinine 1.9 H Glucose 121 H POC Glucose 127 H 138 H Lactic Acid Calcium 8.2 L Ferritin AST Alkaline Phosphatase Magnesium Lactate Dehydrogenase Total Creatine Kinase CK-MB (CK-2) C-Reactive Protein Total Protein Albumin Troponin T HDL Cholesterol Urine WBC (Auto) Urine Creatinine Urine Total Protein Coronavirus (PCR) Crossmatch 06/10/20 06/10/20 06/10/20 14:44 17:31 23:22 WBC RBC Hgb Hct MCHC RDW Lymph % (Auto) Nye % (Auto) Eos % (Auto) Lymph # Nye # Lymph # (Auto) Nye # (Auto) Seg Neutrophils % Seg Neuts % (Manual) Lymphocytes % (Manual) Seg Neutrophils # Seg Neutrophils # Man Lymphocytes # (Manual) Monocytes % (Manual) Eosinophils % (Manual) Monocytes # (Manual) Eosinophils # (Manual) D-Dimer Heparin Anti-Xa Level 0.17 L ABG pH POC ABG pCO2 POC ABG pO2 ABG pO2 ABG HCO3 ABG O2 Saturation ABG Base Excess ABG Hemoglobin ABG Oxyhemoglobin VBG pH Oxyhemoglobin Sodium Potassium Chloride Carbon Dioxide BUN Creatinine Glucose POC Glucose 128 H 114 H Lactic Acid Calcium Ferritin AST Alkaline Phosphatase Magnesium Lactate Dehydrogenase Total Creatine Kinase CK-MB (CK-2) C-Reactive Protein Total Protein Albumin Troponin T HDL Cholesterol Urine WBC (Auto) Urine Creatinine Urine Total Protein Coronavirus (PCR) Crossmatch 06/11/20 06/11/20 06/11/20 00:22 03:45 03:45 WBC 14.6 H RBC 2.77 L Hgb 7.9 L Hct 24.3 L MCHC RDW 16.8 H Lymph % (Auto) 6.6 L Nye % (Auto) 8.5 H Eos % (Auto) Lymph # 1.0 L Nye # 1.2 H Lymph # (Auto) Nye # (Auto) Seg Neutrophils % 82.9 H Seg Neuts % (Manual) Lymphocytes % (Manual) Seg Neutrophils # 12.1 H Seg Neutrophils # Man Lymphocytes # (Manual) Monocytes % (Manual) Eosinophils % (Manual) Monocytes # (Manual) Eosinophils # (Manual) D-Dimer Heparin Anti-Xa Level 0.24 L ABG pH POC ABG pCO2 POC ABG pO2 ABG pO2 ABG HCO3 ABG O2 Saturation ABG Base Excess ABG Hemoglobin ABG Oxyhemoglobin VBG pH Oxyhemoglobin Sodium Potassium Chloride Carbon Dioxide 20 L BUN 88 H Creatinine 1.5 H Glucose 111 H POC Glucose Lactic Acid Calcium 8.2 L Ferritin AST Alkaline Phosphatase Magnesium Lactate Dehydrogenase Total Creatine Kinase CK-MB (CK-2) C-Reactive Protein Total Protein Albumin Troponin T HDL Cholesterol Urine WBC (Auto) Urine Creatinine Urine Total Protein Coronavirus (PCR) Crossmatch 06/11/20 06/11/20 06/11/20 06:03 10:22 11:11 WBC RBC Hgb Hct MCHC RDW Lymph % (Auto) Nye % (Auto) Eos % (Auto) Lymph # Nye # Lymph # (Auto) Nye # (Auto) Seg Neutrophils % Seg Neuts % (Manual) Lymphocytes % (Manual) Seg Neutrophils # Seg Neutrophils # Man Lymphocytes # (Manual) Monocytes % (Manual) Eosinophils % (Manual) Monocytes # (Manual) Eosinophils # (Manual) D-Dimer Heparin Anti-Xa Level 0.26 L ABG pH POC ABG pCO2 POC ABG pO2 ABG pO2 ABG HCO3 ABG O2 Saturation ABG Base Excess ABG Hemoglobin 9.6 L ABG Oxyhemoglobin VBG pH Oxyhemoglobin Sodium Potassium Chloride Carbon Dioxide BUN Creatinine Glucose POC Glucose 114 H Lactic Acid Calcium Ferritin AST Alkaline Phosphatase Magnesium Lactate Dehydrogenase Total Creatine Kinase CK-MB (CK-2) C-Reactive Protein Total Protein Albumin Troponin T HDL Cholesterol Urine WBC (Auto) Urine Creatinine Urine Total Protein Coronavirus (PCR) Crossmatch 06/11/20 06/11/20 06/12/20 12:24 17:24 00:21 WBC RBC Hgb Hct MCHC RDW Lymph % (Auto) Nye % (Auto) Eos % (Auto) Lymph # Nye # Lymph # (Auto) Nye # (Auto) Seg Neutrophils % Seg Neuts % (Manual) Lymphocytes % (Manual) Seg Neutrophils # Seg Neutrophils # Man Lymphocytes # (Manual) Monocytes % (Manual) Eosinophils % (Manual) Monocytes # (Manual) Eosinophils # (Manual) D-Dimer Heparin Anti-Xa Level ABG pH POC ABG pCO2 POC ABG pO2 ABG pO2 ABG HCO3 ABG O2 Saturation ABG Base Excess ABG Hemoglobin ABG Oxyhemoglobin VBG pH Oxyhemoglobin Sodium Potassium Chloride Carbon Dioxide BUN Creatinine Glucose POC Glucose 119 H 126 H 117 H Lactic Acid Calcium Ferritin AST Alkaline Phosphatase Magnesium Lactate Dehydrogenase Total Creatine Kinase CK-MB (CK-2) C-Reactive Protein Total Protein Albumin Troponin T HDL Cholesterol Urine WBC (Auto) Urine Creatinine Urine Total Protein Coronavirus (PCR) Crossmatch 06/12/20 06/12/20 06/12/20 02:46 02:46 05:46 WBC 13.2 H RBC 2.83 L Hgb 8.3 L Hct 24.3 L MCHC RDW 16.6 H Lymph % (Auto) 6.2 L Nye % (Auto) 9.5 H Eos % (Auto) Lymph # 0.8 L Nye # 1.3 H Lymph # (Auto) Nye # (Auto) Seg Neutrophils % 81.9 H Seg Neuts % (Manual) Lymphocytes % (Manual) Seg Neutrophils # 10.9 H Seg Neutrophils # Man Lymphocytes # (Manual) Monocytes % (Manual) Eosinophils % (Manual) Monocytes # (Manual) Eosinophils # (Manual) D-Dimer Heparin Anti-Xa Level ABG pH POC ABG pCO2 POC ABG pO2 ABG pO2 ABG HCO3 ABG O2 Saturation ABG Base Excess ABG Hemoglobin ABG Oxyhemoglobin VBG pH Oxyhemoglobin Sodium Potassium 3.5 L Chloride Carbon Dioxide BUN 77 H Creatinine 1.3 H Glucose POC Glucose 132 H Lactic Acid Calcium 8.3 L Ferritin AST Alkaline Phosphatase Magnesium Lactate Dehydrogenase Total Creatine Kinase CK-MB (CK-2) C-Reactive Protein Total Protein Albumin Troponin T HDL Cholesterol Urine WBC (Auto) Urine Creatinine Urine Total Protein Coronavirus (PCR) Crossmatch 06/12/20 06/12/20 06/12/20 09:20 12:16 17:48 WBC RBC Hgb Hct MCHC RDW Lymph % (Auto) Nye % (Auto) Eos % (Auto) Lymph # Nye # Lymph # (Auto) Nye # (Auto) Seg Neutrophils % Seg Neuts % (Manual) Lymphocytes % (Manual) Seg Neutrophils # Seg Neutrophils # Man Lymphocytes # (Manual) Monocytes % (Manual) Eosinophils % (Manual) Monocytes # (Manual) Eosinophils # (Manual) D-Dimer Heparin Anti-Xa Level ABG pH POC ABG pCO2 POC ABG pO2 ABG pO2 91.1 H ABG HCO3 ABG O2 Saturation ABG Base Excess ABG Hemoglobin ABG Oxyhemoglobin VBG pH Oxyhemoglobin 94.8 L Sodium Potassium Chloride Carbon Dioxide BUN Creatinine Glucose POC Glucose 167 H 182 H Lactic Acid Calcium Ferritin AST Alkaline Phosphatase Magnesium Lactate Dehydrogenase Total Creatine Kinase CK-MB (CK-2) C-Reactive Protein Total Protein Albumin Troponin T HDL Cholesterol Urine WBC (Auto) Urine Creatinine Urine Total Protein Coronavirus (PCR) Crossmatch 06/13/20 06/13/20 06/13/20 00:08 05:37 09:09 WBC RBC Hgb Hct MCHC RDW Lymph % (Auto) Nye % (Auto) Eos % (Auto) Lymph # Nye # Lymph # (Auto) Nye # (Auto) Seg Neutrophils % Seg Neuts % (Manual) Lymphocytes % (Manual) Seg Neutrophils # Seg Neutrophils # Man Lymphocytes # (Manual) Monocytes % (Manual) Eosinophils % (Manual) Monocytes # (Manual) Eosinophils # (Manual) D-Dimer Heparin Anti-Xa Level 0.86 H ABG pH POC ABG pCO2 POC ABG pO2 ABG pO2 ABG HCO3 ABG O2 Saturation ABG Base Excess ABG Hemoglobin ABG Oxyhemoglobin VBG pH Oxyhemoglobin Sodium Potassium Chloride Carbon Dioxide BUN Creatinine Glucose POC Glucose 142 H 119 H Lactic Acid Calcium Ferritin AST Alkaline Phosphatase Magnesium Lactate Dehydrogenase Total Creatine Kinase CK-MB (CK-2) C-Reactive Protein Total Protein Albumin Troponin T HDL Cholesterol Urine WBC (Auto) Urine Creatinine Urine Total Protein Coronavirus (PCR) Crossmatch 06/13/20 06/13/20 06/13/20 12:28 17:55 21:17 WBC RBC Hgb Hct MCHC RDW Lymph % (Auto) Nye % (Auto) Eos % (Auto) Lymph # Nye # Lymph # (Auto) Nye # (Auto) Seg Neutrophils % Seg Neuts % (Manual) Lymphocytes % (Manual) Seg Neutrophils # Seg Neutrophils # Man Lymphocytes # (Manual) Monocytes % (Manual) Eosinophils % (Manual) Monocytes # (Manual) Eosinophils # (Manual) D-Dimer Heparin Anti-Xa Level ABG pH POC ABG pCO2 POC ABG pO2 ABG pO2 ABG HCO3 ABG O2 Saturation ABG Base Excess ABG Hemoglobin ABG Oxyhemoglobin VBG pH Oxyhemoglobin Sodium Potassium Chloride Carbon Dioxide BUN 61 H Creatinine Glucose 131 H POC Glucose 165 H 174 H Lactic Acid Calcium Ferritin AST Alkaline Phosphatase Magnesium Lactate Dehydrogenase Total Creatine Kinase CK-MB (CK-2) C-Reactive Protein Total Protein Albumin Troponin T HDL Cholesterol Urine WBC (Auto) Urine Creatinine Urine Total Protein Coronavirus (PCR) Crossmatch 06/13/20 06/13/20 06/14/20 21:17 23:50 05:34 WBC RBC Hgb Hct MCHC RDW Lymph % (Auto) Nye % (Auto) Eos % (Auto) Lymph # Nye # Lymph # (Auto) Nye # (Auto) Seg Neutrophils % Seg Neuts % (Manual) Lymphocytes % (Manual) Seg Neutrophils # Seg Neutrophils # Man Lymphocytes # (Manual) Monocytes % (Manual) Eosinophils % (Manual) Monocytes # (Manual) Eosinophils # (Manual) D-Dimer Heparin Anti-Xa Level 0.72 H ABG pH POC ABG pCO2 POC ABG pO2 ABG pO2 ABG HCO3 ABG O2 Saturation ABG Base Excess ABG Hemoglobin ABG Oxyhemoglobin VBG pH Oxyhemoglobin Sodium 146 H Potassium Chloride 107.6 H Carbon Dioxide BUN 61 H Creatinine 1.3 H Glucose 135 H POC Glucose 146 H Lactic Acid Calcium Ferritin AST Alkaline Phosphatase Magnesium Lactate Dehydrogenase Total Creatine Kinase CK-MB (CK-2) C-Reactive Protein Total Protein Albumin Troponin T HDL Cholesterol Urine WBC (Auto) Urine Creatinine Urine Total Protein Coronavirus (PCR) Crossmatch 06/14/20 06/14/20 06/14/20 06:11 09:28 11:30 WBC RBC Hgb Hct MCHC RDW Lymph % (Auto) Nye % (Auto) Eos % (Auto) Lymph # Nye # Lymph # (Auto) Nye # (Auto) Seg Neutrophils % Seg Neuts % (Manual) Lymphocytes % (Manual) Seg Neutrophils # Seg Neutrophils # Man Lymphocytes # (Manual) Monocytes % (Manual) Eosinophils % (Manual) Monocytes # (Manual) Eosinophils # (Manual) D-Dimer Heparin Anti-Xa Level 0.90 H ABG pH POC ABG pCO2 POC ABG pO2 ABG pO2 ABG HCO3 ABG O2 Saturation ABG Base Excess ABG Hemoglobin ABG Oxyhemoglobin VBG pH Oxyhemoglobin Sodium Potassium Chloride Carbon Dioxide BUN Creatinine Glucose POC Glucose 141 H 186 H Lactic Acid Calcium Ferritin AST Alkaline Phosphatase Magnesium Lactate Dehydrogenase Total Creatine Kinase CK-MB (CK-2) C-Reactive Protein Total Protein Albumin Troponin T HDL Cholesterol Urine WBC (Auto) Urine Creatinine Urine Total Protein Coronavirus (PCR) Crossmatch 06/14/20 06/14/20 06/14/20 16:07 18:16 23:51 WBC RBC Hgb Hct MCHC RDW Lymph % (Auto) Nye % (Auto) Eos % (Auto) Lymph # Nye # Lymph # (Auto) Nye # (Auto) Seg Neutrophils % Seg Neuts % (Manual) Lymphocytes % (Manual) Seg Neutrophils # Seg Neutrophils # Man Lymphocytes # (Manual) Monocytes % (Manual) Eosinophils % (Manual) Monocytes # (Manual) Eosinophils # (Manual) D-Dimer Heparin Anti-Xa Level 0.82 H ABG pH POC ABG pCO2 POC ABG pO2 ABG pO2 ABG HCO3 ABG O2 Saturation ABG Base Excess ABG Hemoglobin ABG Oxyhemoglobin VBG pH Oxyhemoglobin Sodium Potassium Chloride Carbon Dioxide BUN Creatinine Glucose POC Glucose 106 H 154 H Lactic Acid Calcium Ferritin AST Alkaline Phosphatase Magnesium Lactate Dehydrogenase Total Creatine Kinase CK-MB (CK-2) C-Reactive Protein Total Protein Albumin Troponin T HDL Cholesterol Urine WBC (Auto) Urine Creatinine Urine Total Protein Coronavirus (PCR) Crossmatch 06/15/20 06/15/20 06/15/20 04:24 04:24 05:59 WBC RBC 2.75 L Hgb 7.9 L Hct 24.0 L MCHC RDW 16.4 H Lymph % (Auto) 12.9 L Nye % (Auto) 8.7 H Eos % (Auto) 4.6 H Lymph # 1.1 L Nye # Lymph # (Auto) Nye # (Auto) Seg Neutrophils % 73.2 H Seg Neuts % (Manual) Lymphocytes % (Manual) Seg Neutrophils # Seg Neutrophils # Man Lymphocytes # (Manual) Monocytes % (Manual) Eosinophils % (Manual) Monocytes # (Manual) Eosinophils # (Manual) D-Dimer Heparin Anti-Xa Level ABG pH POC ABG pCO2 POC ABG pO2 ABG pO2 ABG HCO3 ABG O2 Saturation ABG Base Excess ABG Hemoglobin ABG Oxyhemoglobin VBG pH Oxyhemoglobin Sodium Potassium 3.4 L Chloride Carbon Dioxide BUN 55 H Creatinine 1.3 H Glucose 142 H POC Glucose 131 H Lactic Acid Calcium Ferritin AST Alkaline Phosphatase Magnesium Lactate Dehydrogenase Total Creatine Kinase CK-MB (CK-2) C-Reactive Protein Total Protein Albumin Troponin T HDL Cholesterol Urine WBC (Auto) Urine Creatinine Urine Total Protein Coronavirus (PCR) Crossmatch 06/15/20 06/15/20 06/16/20 12:33 17:07 00:22 WBC RBC Hgb Hct MCHC RDW Lymph % (Auto) Nye % (Auto) Eos % (Auto) Lymph # Nye # Lymph # (Auto) Nye # (Auto) Seg Neutrophils % Seg Neuts % (Manual) Lymphocytes % (Manual) Seg Neutrophils # Seg Neutrophils # Man Lymphocytes # (Manual) Monocytes % (Manual) Eosinophils % (Manual) Monocytes # (Manual) Eosinophils # (Manual) D-Dimer Heparin Anti-Xa Level 0.21 L ABG pH POC ABG pCO2 POC ABG pO2 ABG pO2 ABG HCO3 ABG O2 Saturation ABG Base Excess ABG Hemoglobin ABG Oxyhemoglobin VBG pH Oxyhemoglobin Sodium Potassium Chloride Carbon Dioxide BUN Creatinine Glucose POC Glucose 180 H 185 H Lactic Acid Calcium Ferritin AST Alkaline Phosphatase Magnesium Lactate Dehydrogenase Total Creatine Kinase CK-MB (CK-2) C-Reactive Protein Total Protein Albumin Troponin T HDL Cholesterol Urine WBC (Auto) Urine Creatinine Urine Total Protein Coronavirus (PCR) Crossmatch 06/16/20 06/16/20 06/16/20 01:45 08:06 09:15 WBC RBC Hgb Hct MCHC RDW Lymph % (Auto) Nye % (Auto) Eos % (Auto) Lymph # Nye # Lymph # (Auto) Nye # (Auto) Seg Neutrophils % Seg Neuts % (Manual) Lymphocytes % (Manual) Seg Neutrophils # Seg Neutrophils # Man Lymphocytes # (Manual) Monocytes % (Manual) Eosinophils % (Manual) Monocytes # (Manual) Eosinophils # (Manual) D-Dimer Heparin Anti-Xa Level ABG pH POC ABG pCO2 POC ABG pO2 ABG pO2 ABG HCO3 ABG O2 Saturation ABG Base Excess ABG Hemoglobin ABG Oxyhemoglobin VBG pH Oxyhemoglobin Sodium Potassium Chloride Carbon Dioxide BUN 49 H Creatinine Glucose 154 H POC Glucose 140 H 171 H Lactic Acid Calcium Ferritin AST Alkaline Phosphatase Magnesium Lactate Dehydrogenase Total Creatine Kinase CK-MB (CK-2) C-Reactive Protein Total Protein Albumin Troponin T HDL Cholesterol Urine WBC (Auto) Urine Creatinine Urine Total Protein Coronavirus (PCR) Crossmatch 06/16/20 06/16/20 06/16/20 10:46 12:33 17:54 WBC RBC Hgb Hct MCHC RDW Lymph % (Auto) Nye % (Auto) Eos % (Auto) Lymph # Nye # Lymph # (Auto) Nye # (Auto) Seg Neutrophils % Seg Neuts % (Manual) Lymphocytes % (Manual) Seg Neutrophils # Seg Neutrophils # Man Lymphocytes # (Manual) Monocytes % (Manual) Eosinophils % (Manual) Monocytes # (Manual) Eosinophils # (Manual) D-Dimer Heparin Anti-Xa Level 0.12 L ABG pH POC ABG pCO2 POC ABG pO2 ABG pO2 ABG HCO3 ABG O2 Saturation ABG Base Excess ABG Hemoglobin ABG Oxyhemoglobin VBG pH Oxyhemoglobin Sodium Potassium Chloride Carbon Dioxide BUN Creatinine Glucose POC Glucose 166 H 151 H Lactic Acid Calcium Ferritin AST Alkaline Phosphatase Magnesium Lactate Dehydrogenase Total Creatine Kinase CK-MB (CK-2) C-Reactive Protein Total Protein Albumin Troponin T HDL Cholesterol Urine WBC (Auto) Urine Creatinine Urine Total Protein Coronavirus (PCR) Crossmatch 06/16/20 06/17/20 06/17/20 18:47 00:00 02:19 WBC RBC Hgb Hct MCHC RDW Lymph % (Auto) Nye % (Auto) Eos % (Auto) Lymph # Nye # Lymph # (Auto) Nye # (Auto) Seg Neutrophils % Seg Neuts % (Manual) Lymphocytes % (Manual) Seg Neutrophils # Seg Neutrophils # Man Lymphocytes # (Manual) Monocytes % (Manual) Eosinophils % (Manual) Monocytes # (Manual) Eosinophils # (Manual) D-Dimer Heparin Anti-Xa Level 0.73 H 0.77 H ABG pH POC ABG pCO2 POC ABG pO2 ABG pO2 ABG HCO3 ABG O2 Saturation ABG Base Excess ABG Hemoglobin ABG Oxyhemoglobin VBG pH Oxyhemoglobin Sodium Potassium Chloride Carbon Dioxide BUN Creatinine Glucose POC Glucose 139 H Lactic Acid Calcium Ferritin AST Alkaline Phosphatase Magnesium Lactate Dehydrogenase Total Creatine Kinase CK-MB (CK-2) C-Reactive Protein Total Protein Albumin Troponin T HDL Cholesterol Urine WBC (Auto) Urine Creatinine Urine Total Protein Coronavirus (PCR) Crossmatch 06/17/20 06/17/20 06/17/20 06:07 11:42 16:43 WBC RBC Hgb Hct MCHC RDW Lymph % (Auto) Nye % (Auto) Eos % (Auto) Lymph # Nye # Lymph # (Auto) Nye # (Auto) Seg Neutrophils % Seg Neuts % (Manual) Lymphocytes % (Manual) Seg Neutrophils # Seg Neutrophils # Man Lymphocytes # (Manual) Monocytes % (Manual) Eosinophils % (Manual) Monocytes # (Manual) Eosinophils # (Manual) D-Dimer Heparin Anti-Xa Level 0.73 H ABG pH POC ABG pCO2 POC ABG pO2 ABG pO2 ABG HCO3 ABG O2 Saturation ABG Base Excess ABG Hemoglobin ABG Oxyhemoglobin VBG pH Oxyhemoglobin Sodium Potassium Chloride Carbon Dioxide BUN Creatinine Glucose POC Glucose 169 H 169 H Lactic Acid Calcium Ferritin AST Alkaline Phosphatase Magnesium Lactate Dehydrogenase Total Creatine Kinase CK-MB (CK-2) C-Reactive Protein Total Protein Albumin Troponin T HDL Cholesterol Urine WBC (Auto) Urine Creatinine Urine Total Protein Coronavirus (PCR) Crossmatch 06/17/20 06/17/20 06/17/20 18:18 23:08 23:16 WBC RBC Hgb Hct MCHC RDW Lymph % (Auto) Nye % (Auto) Eos % (Auto) Lymph # Nye # Lymph # (Auto) Nye # (Auto) Seg Neutrophils % Seg Neuts % (Manual) Lymphocytes % (Manual) Seg Neutrophils # Seg Neutrophils # Man Lymphocytes # (Manual) Monocytes % (Manual) Eosinophils % (Manual) Monocytes # (Manual) Eosinophils # (Manual) D-Dimer Heparin Anti-Xa Level 0.71 H ABG pH POC ABG pCO2 POC ABG pO2 ABG pO2 ABG HCO3 ABG O2 Saturation ABG Base Excess ABG Hemoglobin ABG Oxyhemoglobin VBG pH Oxyhemoglobin Sodium Potassium Chloride Carbon Dioxide BUN Creatinine Glucose POC Glucose 159 H 134 H Lactic Acid Calcium Ferritin AST Alkaline Phosphatase Magnesium Lactate Dehydrogenase Total Creatine Kinase CK-MB (CK-2) C-Reactive Protein Total Protein Albumin Troponin T HDL Cholesterol Urine WBC (Auto) Urine Creatinine Urine Total Protein Coronavirus (PCR) Crossmatch 06/18/20 06/18/20 06/18/20 04:42 05:52 11:50 WBC RBC Hgb Hct MCHC RDW Lymph % (Auto) Nye % (Auto) Eos % (Auto) Lymph # Nye # Lymph # (Auto) Nye # (Auto) Seg Neutrophils % Seg Neuts % (Manual) Lymphocytes % (Manual) Seg Neutrophils # Seg Neutrophils # Man Lymphocytes # (Manual) Monocytes % (Manual) Eosinophils % (Manual) Monocytes # (Manual) Eosinophils # (Manual) D-Dimer Heparin Anti-Xa Level ABG pH POC ABG pCO2 POC ABG pO2 ABG pO2 ABG HCO3 ABG O2 Saturation ABG Base Excess ABG Hemoglobin ABG Oxyhemoglobin VBG pH Oxyhemoglobin Sodium Potassium Chloride Carbon Dioxide BUN 44 H Creatinine Glucose 115 H POC Glucose 171 H 167 H Lactic Acid Calcium Ferritin AST Alkaline Phosphatase Magnesium Lactate Dehydrogenase Total Creatine Kinase CK-MB (CK-2) C-Reactive Protein Total Protein Albumin Troponin T HDL Cholesterol Urine WBC (Auto) Urine Creatinine Urine Total Protein Coronavirus (PCR) Crossmatch 06/18/20 06/19/20 06/19/20 23:46 05:48 07:52 WBC RBC Hgb Hct MCHC RDW Lymph % (Auto) Nye % (Auto) Eos % (Auto) Lymph # Nye # Lymph # (Auto) Nye # (Auto) Seg Neutrophils % Seg Neuts % (Manual) Lymphocytes % (Manual) Seg Neutrophils # Seg Neutrophils # Man Lymphocytes # (Manual) Monocytes % (Manual) Eosinophils % (Manual) Monocytes # (Manual) Eosinophils # (Manual) D-Dimer Heparin Anti-Xa Level ABG pH POC ABG pCO2 POC ABG pO2 ABG pO2 ABG HCO3 ABG O2 Saturation ABG Base Excess ABG Hemoglobin ABG Oxyhemoglobin VBG pH Oxyhemoglobin Sodium Potassium Chloride Carbon Dioxide BUN Creatinine Glucose POC Glucose 130 H 207 H 175 H Lactic Acid Calcium Ferritin AST Alkaline Phosphatase Magnesium Lactate Dehydrogenase Total Creatine Kinase CK-MB (CK-2) C-Reactive Protein Total Protein Albumin Troponin T HDL Cholesterol Urine WBC (Auto) Urine Creatinine Urine Total Protein Coronavirus (PCR) Crossmatch 06/19/20 06/19/20 06/20/20 11:42 22:54 05:17 WBC RBC Hgb Hct MCHC RDW Lymph % (Auto) Nye % (Auto) Eos % (Auto) Lymph # Nye # Lymph # (Auto) Nye # (Auto) Seg Neutrophils % Seg Neuts % (Manual) Lymphocytes % (Manual) Seg Neutrophils # Seg Neutrophils # Man Lymphocytes # (Manual) Monocytes % (Manual) Eosinophils % (Manual) Monocytes # (Manual) Eosinophils # (Manual) D-Dimer Heparin Anti-Xa Level ABG pH POC ABG pCO2 POC ABG pO2 ABG pO2 ABG HCO3 ABG O2 Saturation ABG Base Excess ABG Hemoglobin ABG Oxyhemoglobin VBG pH Oxyhemoglobin Sodium Potassium Chloride Carbon Dioxide BUN Creatinine Glucose POC Glucose 166 H 135 H 218 H Lactic Acid Calcium Ferritin AST Alkaline Phosphatase Magnesium Lactate Dehydrogenase Total Creatine Kinase CK-MB (CK-2) C-Reactive Protein Total Protein Albumin Troponin T HDL Cholesterol Urine WBC (Auto) Urine Creatinine Urine Total Protein Coronavirus (PCR) Crossmatch 06/20/20 06/20/20 06/20/20 12:04 16:25 16:35 WBC RBC Hgb Hct MCHC RDW Lymph % (Auto) Nye % (Auto) Eos % (Auto) Lymph # Nye # Lymph # (Auto) Nye # (Auto) Seg Neutrophils % Seg Neuts % (Manual) Lymphocytes % (Manual) Seg Neutrophils # Seg Neutrophils # Man Lymphocytes # (Manual) Monocytes % (Manual) Eosinophils % (Manual) Monocytes # (Manual) Eosinophils # (Manual) D-Dimer Heparin Anti-Xa Level ABG pH POC ABG pCO2 POC ABG pO2 ABG pO2 59.6 L ABG HCO3 28.7 H ABG O2 Saturation 93.5 L ABG Base Excess 3.4 H ABG Hemoglobin 7.2 L ABG Oxyhemoglobin VBG pH Oxyhemoglobin 91.3 L Sodium Potassium Chloride Carbon Dioxide BUN Creatinine Glucose POC Glucose 194 H 137 H Lactic Acid Calcium Ferritin AST Alkaline Phosphatase Magnesium Lactate Dehydrogenase Total Creatine Kinase CK-MB (CK-2) C-Reactive Protein Total Protein Albumin Troponin T HDL Cholesterol Urine WBC (Auto) Urine Creatinine Urine Total Protein Coronavirus (PCR) Crossmatch 06/20/20 06/21/20 06/21/20 23:59 06:25 12:01 WBC RBC Hgb Hct MCHC RDW Lymph % (Auto) Nye % (Auto) Eos % (Auto) Lymph # Nye # Lymph # (Auto) Nye # (Auto) Seg Neutrophils % Seg Neuts % (Manual) Lymphocytes % (Manual) Seg Neutrophils # Seg Neutrophils # Man Lymphocytes # (Manual) Monocytes % (Manual) Eosinophils % (Manual) Monocytes # (Manual) Eosinophils # (Manual) D-Dimer Heparin Anti-Xa Level ABG pH POC ABG pCO2 POC ABG pO2 ABG pO2 ABG HCO3 ABG O2 Saturation ABG Base Excess ABG Hemoglobin ABG Oxyhemoglobin VBG pH Oxyhemoglobin Sodium Potassium Chloride Carbon Dioxide BUN Creatinine Glucose POC Glucose 156 H 177 H 195 H Lactic Acid Calcium Ferritin AST Alkaline Phosphatase Magnesium Lactate Dehydrogenase Total Creatine Kinase CK-MB (CK-2) C-Reactive Protein Total Protein Albumin Troponin T HDL Cholesterol Urine WBC (Auto) Urine Creatinine Urine Total Protein Coronavirus (PCR) Crossmatch 06/21/20 06/21/20 06/22/20 17:04 21:51 05:06 WBC RBC Hgb Hct MCHC RDW Lymph % (Auto) Nye % (Auto) Eos % (Auto) Lymph # Nye # Lymph # (Auto) Nye # (Auto) Seg Neutrophils % Seg Neuts % (Manual) Lymphocytes % (Manual) Seg Neutrophils # Seg Neutrophils # Man Lymphocytes # (Manual) Monocytes % (Manual) Eosinophils % (Manual) Monocytes # (Manual) Eosinophils # (Manual) D-Dimer Heparin Anti-Xa Level ABG pH POC ABG pCO2 POC ABG pO2 ABG pO2 ABG HCO3 ABG O2 Saturation ABG Base Excess ABG Hemoglobin ABG Oxyhemoglobin VBG pH Oxyhemoglobin Sodium Potassium Chloride Carbon Dioxide BUN Creatinine Glucose POC Glucose 156 H 154 H 167 H Lactic Acid Calcium Ferritin AST Alkaline Phosphatase Magnesium Lactate Dehydrogenase Total Creatine Kinase CK-MB (CK-2) C-Reactive Protein Total Protein Albumin Troponin T HDL Cholesterol Urine WBC (Auto) Urine Creatinine Urine Total Protein Coronavirus (PCR) Crossmatch 06/22/20 06/22/20 06/22/20 11:20 15:27 16:58 WBC RBC Hgb Hct MCHC RDW Lymph % (Auto) Nye % (Auto) Eos % (Auto) Lymph # Nye # Lymph # (Auto) Nye # (Auto) Seg Neutrophils % Seg Neuts % (Manual) Lymphocytes % (Manual) Seg Neutrophils # Seg Neutrophils # Man Lymphocytes # (Manual) Monocytes % (Manual) Eosinophils % (Manual) Monocytes # (Manual) Eosinophils # (Manual) D-Dimer Heparin Anti-Xa Level ABG pH 7.206 L POC ABG pCO2 79.9 H POC ABG pO2 ABG pO2 ABG HCO3 ABG O2 Saturation ABG Base Excess ABG Hemoglobin 8.3 L ABG Oxyhemoglobin VBG pH Oxyhemoglobin Sodium Potassium Chloride Carbon Dioxide BUN Creatinine Glucose POC Glucose 181 H 230 H Lactic Acid Calcium Ferritin AST Alkaline Phosphatase Magnesium Lactate Dehydrogenase Total Creatine Kinase CK-MB (CK-2) C-Reactive Protein Total Protein Albumin Troponin T HDL Cholesterol Urine WBC (Auto) Urine Creatinine Urine Total Protein Coronavirus (PCR) Crossmatch 06/22/20 06/23/20 06/23/20 22:26 05:49 05:49 WBC RBC 2.58 L Hgb 7.4 L Hct 23.2 L MCHC RDW 17.0 H Lymph % (Auto) Nye % (Auto) 11.2 H Eos % (Auto) Lymph # 1.0 L Nye # Lymph # (Auto) Nye # (Auto) Seg Neutrophils % Seg Neuts % (Manual) Lymphocytes % (Manual) Seg Neutrophils # Seg Neutrophils # Man Lymphocytes # (Manual) Monocytes % (Manual) Eosinophils % (Manual) Monocytes # (Manual) Eosinophils # (Manual) D-Dimer Heparin Anti-Xa Level ABG pH POC ABG pCO2 POC ABG pO2 ABG pO2 ABG HCO3 ABG O2 Saturation ABG Base Excess ABG Hemoglobin ABG Oxyhemoglobin VBG pH Oxyhemoglobin Sodium Potassium Chloride Carbon Dioxide BUN 68 H Creatinine 2.4 H Glucose 198 H POC Glucose 195 H Lactic Acid Calcium Ferritin AST Alkaline Phosphatase Magnesium Lactate Dehydrogenase Total Creatine Kinase CK-MB (CK-2) C-Reactive Protein Total Protein Albumin Troponin T HDL Cholesterol Urine WBC (Auto) Urine Creatinine Urine Total Protein Coronavirus (PCR) Crossmatch 06/23/20 06/23/20 06/23/20 05:50 12:29 12:34 WBC RBC Hgb Hct MCHC RDW Lymph % (Auto) Nye % (Auto) Eos % (Auto) Lymph # Nye # Lymph # (Auto) Nye # (Auto) Seg Neutrophils % Seg Neuts % (Manual) Lymphocytes % (Manual) Seg Neutrophils # Seg Neutrophils # Man Lymphocytes # (Manual) Monocytes % (Manual) Eosinophils % (Manual) Monocytes # (Manual) Eosinophils # (Manual) D-Dimer Heparin Anti-Xa Level ABG pH POC ABG pCO2 54.7 H POC ABG pO2 68.8 L ABG pO2 ABG HCO3 ABG O2 Saturation ABG Base Excess ABG Hemoglobin 9.8 L ABG Oxyhemoglobin 92.6 L VBG pH Oxyhemoglobin Sodium Potassium Chloride Carbon Dioxide BUN Creatinine Glucose POC Glucose 202 H 218 H Lactic Acid Calcium Ferritin AST Alkaline Phosphatase Magnesium Lactate Dehydrogenase Total Creatine Kinase CK-MB (CK-2) C-Reactive Protein Total Protein Albumin Troponin T HDL Cholesterol Urine WBC (Auto) Urine Creatinine Urine Total Protein Coronavirus (PCR) Crossmatch 06/23/20 06/23/20 06/24/20 16:02 22:22 01:06 WBC RBC Hgb Hct MCHC RDW Lymph % (Auto) Nye % (Auto) Eos % (Auto) Lymph # Nye # Lymph # (Auto) Nye # (Auto) Seg Neutrophils % Seg Neuts % (Manual) Lymphocytes % (Manual) Seg Neutrophils # Seg Neutrophils # Man Lymphocytes # (Manual) Monocytes % (Manual) Eosinophils % (Manual) Monocytes # (Manual) Eosinophils # (Manual) D-Dimer Heparin Anti-Xa Level ABG pH POC ABG pCO2 POC ABG pO2 ABG pO2 ABG HCO3 ABG O2 Saturation ABG Base Excess ABG Hemoglobin ABG Oxyhemoglobin VBG pH Oxyhemoglobin Sodium Potassium Chloride Carbon Dioxide BUN Creatinine Glucose POC Glucose 190 H 166 H 171 H Lactic Acid Calcium Ferritin AST Alkaline Phosphatase Magnesium Lactate Dehydrogenase Total Creatine Kinase CK-MB (CK-2) C-Reactive Protein Total Protein Albumin Troponin T HDL Cholesterol Urine WBC (Auto) Urine Creatinine Urine Total Protein Coronavirus (PCR) Crossmatch 06/24/20 06/24/20 06/24/20 04:48 05:35 11:48 WBC RBC Hgb Hct MCHC RDW Lymph % (Auto) Nye % (Auto) Eos % (Auto) Lymph # Nye # Lymph # (Auto) Nye # (Auto) Seg Neutrophils % Seg Neuts % (Manual) Lymphocytes % (Manual) Seg Neutrophils # Seg Neutrophils # Man Lymphocytes # (Manual) Monocytes % (Manual) Eosinophils % (Manual) Monocytes # (Manual) Eosinophils # (Manual) D-Dimer Heparin Anti-Xa Level ABG pH POC ABG pCO2 POC ABG pO2 ABG pO2 ABG HCO3 ABG O2 Saturation ABG Base Excess ABG Hemoglobin ABG Oxyhemoglobin VBG pH Oxyhemoglobin Sodium Potassium Chloride Carbon Dioxide BUN 75 H Creatinine 2.6 H Glucose 179 H POC Glucose 172 H 153 H Lactic Acid Calcium Ferritin AST Alkaline Phosphatase Magnesium Lactate Dehydrogenase Total Creatine Kinase CK-MB (CK-2) C-Reactive Protein Total Protein Albumin Troponin T HDL Cholesterol Urine WBC (Auto) Urine Creatinine Urine Total Protein Coronavirus (PCR) Crossmatch 06/24/20 06/24/20 06/25/20 16:38 21:52 12:00 WBC RBC Hgb Hct MCHC RDW Lymph % (Auto) Nye % (Auto) Eos % (Auto) Lymph # Nye # Lymph # (Auto) Nye # (Auto) Seg Neutrophils % Seg Neuts % (Manual) Lymphocytes % (Manual) Seg Neutrophils # Seg Neutrophils # Man Lymphocytes # (Manual) Monocytes % (Manual) Eosinophils % (Manual) Monocytes # (Manual) Eosinophils # (Manual) D-Dimer Heparin Anti-Xa Level ABG pH POC ABG pCO2 POC ABG pO2 ABG pO2 ABG HCO3 ABG O2 Saturation ABG Base Excess ABG Hemoglobin ABG Oxyhemoglobin VBG pH Oxyhemoglobin Sodium Potassium Chloride Carbon Dioxide BUN Creatinine Glucose POC Glucose 123 H 115 H 203 H Lactic Acid Calcium Ferritin AST Alkaline Phosphatase Magnesium Lactate Dehydrogenase Total Creatine Kinase CK-MB (CK-2) C-Reactive Protein Total Protein Albumin Troponin T HDL Cholesterol Urine WBC (Auto) Urine Creatinine Urine Total Protein Coronavirus (PCR) Crossmatch 06/25/20 06/25/20 06/25/20 15:43 16:37 23:02 WBC RBC Hgb Hct MCHC RDW Lymph % (Auto) Nye % (Auto) Eos % (Auto) Lymph # Nye # Lymph # (Auto) Nye # (Auto) Seg Neutrophils % Seg Neuts % (Manual) Lymphocytes % (Manual) Seg Neutrophils # Seg Neutrophils # Man Lymphocytes # (Manual) Monocytes % (Manual) Eosinophils % (Manual) Monocytes # (Manual) Eosinophils # (Manual) D-Dimer Heparin Anti-Xa Level ABG pH POC ABG pCO2 POC ABG pO2 ABG pO2 ABG HCO3 ABG O2 Saturation ABG Base Excess ABG Hemoglobin ABG Oxyhemoglobin VBG pH Oxyhemoglobin Sodium Potassium Chloride Carbon Dioxide BUN 71 H Creatinine 1.8 H Glucose 170 H POC Glucose 191 H 126 H Lactic Acid Calcium 8.2 L Ferritin AST Alkaline Phosphatase Magnesium Lactate Dehydrogenase Total Creatine Kinase CK-MB (CK-2) C-Reactive Protein Total Protein Albumin Troponin T HDL Cholesterol Urine WBC (Auto) Urine Creatinine Urine Total Protein Coronavirus (PCR) Crossmatch 06/26/20 06/26/20 06/26/20 06:34 06:34 09:27 WBC RBC 2.41 L Hgb 6.9 L Hct 21.5 L MCHC RDW 16.7 H Lymph % (Auto) 10.9 L Nye % (Auto) 9.6 H Eos % (Auto) Lymph # 0.7 L Nye # Lymph # (Auto) Nye # (Auto) Seg Neutrophils % 75.4 H Seg Neuts % (Manual) Lymphocytes % (Manual) Seg Neutrophils # Seg Neutrophils # Man Lymphocytes # (Manual) Monocytes % (Manual) Eosinophils % (Manual) Monocytes # (Manual) Eosinophils # (Manual) D-Dimer Heparin Anti-Xa Level ABG pH POC ABG pCO2 POC ABG pO2 ABG pO2 ABG HCO3 ABG O2 Saturation ABG Base Excess ABG Hemoglobin ABG Oxyhemoglobin VBG pH Oxyhemoglobin Sodium Potassium Chloride Carbon Dioxide BUN 77 H Creatinine 1.9 H Glucose 190 H POC Glucose Lactic Acid Calcium Ferritin AST Alkaline Phosphatase Magnesium Lactate Dehydrogenase Total Creatine Kinase CK-MB (CK-2) C-Reactive Protein Total Protein Albumin Troponin T HDL Cholesterol Urine WBC (Auto) Urine Creatinine Urine Total Protein Coronavirus (PCR) Crossmatch See Detail 06/26/20 06/26/20 06/26/20 12:15 16:28 17:28 WBC RBC Hgb Hct MCHC RDW Lymph % (Auto) Nye % (Auto) Eos % (Auto) Lymph # Nye # Lymph # (Auto) Nye # (Auto) Seg Neutrophils % Seg Neuts % (Manual) Lymphocytes % (Manual) Seg Neutrophils # Seg Neutrophils # Man Lymphocytes # (Manual) Monocytes % (Manual) Eosinophils % (Manual) Monocytes # (Manual) Eosinophils # (Manual) D-Dimer Heparin Anti-Xa Level ABG pH POC ABG pCO2 POC ABG pO2 ABG pO2 ABG HCO3 ABG O2 Saturation ABG Base Excess ABG Hemoglobin ABG Oxyhemoglobin VBG pH Oxyhemoglobin Sodium Potassium Chloride Carbon Dioxide BUN Creatinine Glucose POC Glucose 187 H 149 H 189 H Lactic Acid Calcium Ferritin AST Alkaline Phosphatase Magnesium Lactate Dehydrogenase Total Creatine Kinase CK-MB (CK-2) C-Reactive Protein Total Protein Albumin Troponin T HDL Cholesterol Urine WBC (Auto) Urine Creatinine Urine Total Protein Coronavirus (PCR) Crossmatch 06/26/20 06/26/20 06/26/20 18:30 18:30 18:30 WBC RBC 2.87 L Hgb 8.2 L Hct 25.9 L MCHC RDW 17.8 H Lymph % (Auto) Nye % (Auto) Eos % (Auto) Lymph # Nye # Lymph # (Auto) Nye # (Auto) Seg Neutrophils % Seg Neuts % (Manual) 83.0 H Lymphocytes % (Manual) 8.0 L Seg Neutrophils # Seg Neutrophils # Man Lymphocytes # (Manual) 0.6 L Monocytes % (Manual) Eosinophils % (Manual) Monocytes # (Manual) Eosinophils # (Manual) D-Dimer Heparin Anti-Xa Level ABG pH POC ABG pCO2 POC ABG pO2 ABG pO2 ABG HCO3 ABG O2 Saturation ABG Base Excess ABG Hemoglobin ABG Oxyhemoglobin VBG pH Oxyhemoglobin Sodium Potassium Chloride Carbon Dioxide BUN 80 H Creatinine 2.1 H Glucose 260 H POC Glucose Lactic Acid 4.30 H* Calcium 8.3 L Ferritin AST Alkaline Phosphatase Magnesium Lactate Dehydrogenase Total Creatine Kinase CK-MB (CK-2) C-Reactive Protein Total Protein Albumin Troponin T HDL Cholesterol Urine WBC (Auto) Urine Creatinine Urine Total Protein Coronavirus (PCR) Crossmatch 06/26/20 06/27/20 06/27/20 18:50 01:00 04:29 WBC RBC Hgb Hct MCHC RDW Lymph % (Auto) Nye % (Auto) Eos % (Auto) Lymph # Nye # Lymph # (Auto) Nye # (Auto) Seg Neutrophils % Seg Neuts % (Manual) Lymphocytes % (Manual) Seg Neutrophils # Seg Neutrophils # Man Lymphocytes # (Manual) Monocytes % (Manual) Eosinophils % (Manual) Monocytes # (Manual) Eosinophils # (Manual) D-Dimer Heparin Anti-Xa Level ABG pH 7.296 L POC ABG pCO2 POC ABG pO2 ABG pO2 116.5 H 200.5 H ABG HCO3 28.4 H ABG O2 Saturation 99.3 H ABG Base Excess 3.7 H ABG Hemoglobin 5.6 L ABG Oxyhemoglobin VBG pH Oxyhemoglobin Sodium Potassium Chloride Carbon Dioxide BUN Creatinine Glucose POC Glucose 123 H Lactic Acid Calcium Ferritin AST Alkaline Phosphatase Magnesium Lactate Dehydrogenase Total Creatine Kinase CK-MB (CK-2) C-Reactive Protein Total Protein Albumin Troponin T HDL Cholesterol Urine WBC (Auto) Urine Creatinine Urine Total Protein Coronavirus (PCR) Crossmatch 06/27/20 06/27/20 06/27/20 05:00 05:00 05:00 WBC RBC 2.75 L Hgb 7.9 L Hct 24.3 L MCHC RDW 17.1 H Lymph % (Auto) 8.5 L Nye % (Auto) 12.6 H Eos % (Auto) Lymph # 0.7 L Nye # 1.0 H Lymph # (Auto) Nye # (Auto) Seg Neutrophils % 77.5 H Seg Neuts % (Manual) Lymphocytes % (Manual) Seg Neutrophils # Seg Neutrophils # Man Lymphocytes # (Manual) Monocytes % (Manual) Eosinophils % (Manual) Monocytes # (Manual) Eosinophils # (Manual) D-Dimer Heparin Anti-Xa Level ABG pH POC ABG pCO2 POC ABG pO2 ABG pO2 ABG HCO3 ABG O2 Saturation ABG Base Excess ABG Hemoglobin ABG Oxyhemoglobin VBG pH Oxyhemoglobin Sodium Potassium Chloride Carbon Dioxide BUN 80 H Creatinine 2.0 H Glucose 129 H POC Glucose Lactic Acid 0.60 L Calcium 7.9 L Ferritin AST Alkaline Phosphatase Magnesium Lactate Dehydrogenase Total Creatine Kinase CK-MB (CK-2) C-Reactive Protein Total Protein Albumin Troponin T HDL Cholesterol Urine WBC (Auto) Urine Creatinine Urine Total Protein Coronavirus (PCR) Crossmatch 06/27/20 06/27/20 06/27/20 05:23 13:46 17:25 WBC RBC Hgb Hct MCHC RDW Lymph % (Auto) Nye % (Auto) Eos % (Auto) Lymph # Nye # Lymph # (Auto) Nye # (Auto) Seg Neutrophils % Seg Neuts % (Manual) Lymphocytes % (Manual) Seg Neutrophils # Seg Neutrophils # Man Lymphocytes # (Manual) Monocytes % (Manual) Eosinophils % (Manual) Monocytes # (Manual) Eosinophils # (Manual) D-Dimer Heparin Anti-Xa Level ABG pH POC ABG pCO2 POC ABG pO2 ABG pO2 ABG HCO3 ABG O2 Saturation ABG Base Excess ABG Hemoglobin ABG Oxyhemoglobin VBG pH Oxyhemoglobin Sodium Potassium Chloride Carbon Dioxide BUN Creatinine Glucose POC Glucose 109 H 158 H 162 H Lactic Acid Calcium Ferritin AST Alkaline Phosphatase Magnesium Lactate Dehydrogenase Total Creatine Kinase CK-MB (CK-2) C-Reactive Protein Total Protein Albumin Troponin T HDL Cholesterol Urine WBC (Auto) Urine Creatinine Urine Total Protein Coronavirus (PCR) Crossmatch 06/27/20 06/27/20 06/28/20 18:43 23:46 04:05 WBC RBC Hgb 7.7 L Hct 22.1 L MCHC RDW Lymph % (Auto) Nye % (Auto) Eos % (Auto) Lymph # Nye # Lymph # (Auto) Nye # (Auto) Seg Neutrophils % Seg Neuts % (Manual) Lymphocytes % (Manual) Seg Neutrophils # Seg Neutrophils # Man Lymphocytes # (Manual) Monocytes % (Manual) Eosinophils % (Manual) Monocytes # (Manual) Eosinophils # (Manual) D-Dimer Heparin Anti-Xa Level ABG pH POC ABG pCO2 POC ABG pO2 ABG pO2 102.7 H ABG HCO3 28.7 H ABG O2 Saturation ABG Base Excess 3.7 H ABG Hemoglobin ABG Oxyhemoglobin VBG pH Oxyhemoglobin Sodium Potassium Chloride Carbon Dioxide BUN Creatinine Glucose POC Glucose 142 H Lactic Acid Calcium Ferritin AST Alkaline Phosphatase Magnesium Lactate Dehydrogenase Total Creatine Kinase CK-MB (CK-2) C-Reactive Protein Total Protein Albumin Troponin T HDL Cholesterol Urine WBC (Auto) Urine Creatinine Urine Total Protein Coronavirus (PCR) Crossmatch 06/28/20 06/28/20 06/28/20 09:47 09:47 12:02 WBC RBC 2.53 L Hgb 7.4 L Hct 22.2 L MCHC RDW 16.8 H Lymph % (Auto) Nye % (Auto) 13.5 H Eos % (Auto) Lymph # 1.1 L Nye # 1.0 H Lymph # (Auto) Nye # (Auto) Seg Neutrophils % Seg Neuts % (Manual) Lymphocytes % (Manual) Seg Neutrophils # Seg Neutrophils # Man Lymphocytes # (Manual) Monocytes % (Manual) Eosinophils % (Manual) Monocytes # (Manual) Eosinophils # (Manual) D-Dimer Heparin Anti-Xa Level ABG pH POC ABG pCO2 POC ABG pO2 ABG pO2 ABG HCO3 ABG O2 Saturation ABG Base Excess ABG Hemoglobin ABG Oxyhemoglobin VBG pH Oxyhemoglobin Sodium Potassium Chloride Carbon Dioxide BUN 80 H Creatinine 1.5 H Glucose 139 H POC Glucose 169 H Lactic Acid Calcium 7.9 L Ferritin AST Alkaline Phosphatase Magnesium Lactate Dehydrogenase Total Creatine Kinase CK-MB (CK-2) C-Reactive Protein Total Protein 5.0 L Albumin 2.1 L Troponin T HDL Cholesterol Urine WBC (Auto) Urine Creatinine Urine Total Protein Coronavirus (PCR) Crossmatch 06/28/20 06/28/20 06/28/20 12:30 12:30 17:24 WBC RBC 2.38 L Hgb 7.3 L Hct 20.9 L MCHC 35 H RDW 16.7 H Lymph % (Auto) Nye % (Auto) Eos % (Auto) Lymph # Nye # Lymph # (Auto) Nye # (Auto) Seg Neutrophils % Seg Neuts % (Manual) Lymphocytes % (Manual) Seg Neutrophils # Seg Neutrophils # Man Lymphocytes # (Manual) Monocytes % (Manual) Eosinophils % (Manual) Monocytes # (Manual) Eosinophils # (Manual) D-Dimer Heparin Anti-Xa Level ABG pH POC ABG pCO2 POC ABG pO2 ABG pO2 ABG HCO3 ABG O2 Saturation ABG Base Excess ABG Hemoglobin ABG Oxyhemoglobin VBG pH Oxyhemoglobin Sodium Potassium Chloride Carbon Dioxide BUN 74 H Creatinine 1.5 H Glucose 143 H POC Glucose 173 H Lactic Acid Calcium 7.5 L Ferritin AST Alkaline Phosphatase Magnesium Lactate Dehydrogenase Total Creatine Kinase CK-MB (CK-2) C-Reactive Protein Total Protein Albumin Troponin T HDL Cholesterol Urine WBC (Auto) Urine Creatinine Urine Total Protein Coronavirus (PCR) Crossmatch 06/29/20 06/29/20 06/29/20 00:02 03:54 04:38 WBC RBC 2.55 L Hgb 7.3 L Hct 22.4 L MCHC RDW 16.4 H Lymph % (Auto) 13.3 L Nye % (Auto) 12.5 H Eos % (Auto) Lymph # 1.1 L Nye # 1.0 H Lymph # (Auto) Nye # (Auto) Seg Neutrophils % Seg Neuts % (Manual) Lymphocytes % (Manual) Seg Neutrophils # Seg Neutrophils # Man Lymphocytes # (Manual) Monocytes % (Manual) Eosinophils % (Manual) Monocytes # (Manual) Eosinophils # (Manual) D-Dimer Heparin Anti-Xa Level ABG pH POC ABG pCO2 POC ABG pO2 ABG pO2 ABG HCO3 26.9 H ABG O2 Saturation ABG Base Excess ABG Hemoglobin 6.9 L ABG Oxyhemoglobin VBG pH Oxyhemoglobin Sodium Potassium Chloride Carbon Dioxide BUN Creatinine Glucose POC Glucose 142 H Lactic Acid Calcium Ferritin AST Alkaline Phosphatase Magnesium Lactate Dehydrogenase Total Creatine Kinase CK-MB (CK-2) C-Reactive Protein Total Protein Albumin Troponin T HDL Cholesterol Urine WBC (Auto) Urine Creatinine Urine Total Protein Coronavirus (PCR) Crossmatch 06/29/20 06/29/20 06/29/20 04:38 05:38 12:25 WBC RBC Hgb Hct MCHC RDW Lymph % (Auto) Nye % (Auto) Eos % (Auto) Lymph # Nye # Lymph # (Auto) Nye # (Auto) Seg Neutrophils % Seg Neuts % (Manual) Lymphocytes % (Manual) Seg Neutrophils # Seg Neutrophils # Man Lymphocytes # (Manual) Monocytes % (Manual) Eosinophils % (Manual) Monocytes # (Manual) Eosinophils # (Manual) D-Dimer Heparin Anti-Xa Level ABG pH POC ABG pCO2 POC ABG pO2 ABG pO2 ABG HCO3 ABG O2 Saturation ABG Base Excess ABG Hemoglobin ABG Oxyhemoglobin VBG pH Oxyhemoglobin Sodium Potassium Chloride 107.8 H Carbon Dioxide BUN 72 H Creatinine 1.4 H Glucose 127 H POC Glucose 122 H 138 H Lactic Acid Calcium 7.4 L Ferritin AST Alkaline Phosphatase Magnesium Lactate Dehydrogenase Total Creatine Kinase CK-MB (CK-2) C-Reactive Protein Total Protein Albumin Troponin T HDL Cholesterol Urine WBC (Auto) Urine Creatinine Urine Total Protein Coronavirus (PCR) Crossmatch 06/29/20 06/29/20 06/29/20 14:45 14:45 14:45 WBC RBC Hgb Hct MCHC RDW Lymph % (Auto) Nye % (Auto) Eos % (Auto) Lymph # Nye # Lymph # (Auto) Nye # (Auto) Seg Neutrophils % Seg Neuts % (Manual) Lymphocytes % (Manual) Seg Neutrophils # Seg Neutrophils # Man Lymphocytes # (Manual) Monocytes % (Manual) Eosinophils % (Manual) Monocytes # (Manual) Eosinophils # (Manual) D-Dimer 2310.15 H Heparin Anti-Xa Level ABG pH POC ABG pCO2 POC ABG pO2 ABG pO2 ABG HCO3 ABG O2 Saturation ABG Base Excess ABG Hemoglobin ABG Oxyhemoglobin VBG pH Oxyhemoglobin Sodium Potassium Chloride Carbon Dioxide BUN Creatinine Glucose POC Glucose Lactic Acid Calcium Ferritin 223.6 H AST Alkaline Phosphatase Magnesium Lactate Dehydrogenase 367 H Total Creatine Kinase CK-MB (CK-2) C-Reactive Protein 3.60 H Total Protein Albumin Troponin T HDL Cholesterol Urine WBC (Auto) Urine Creatinine Urine Total Protein Coronavirus (PCR) Crossmatch 0906/29/20 06/29/20 18:27 23:35 Unknown WBC RBC Hgb Hct MCHC RDW Lymph % (Auto) Nye % (Auto) Eos % (Auto) Lymph # Nye # Lymph # (Auto) Nye # (Auto) Seg Neutrophils % Seg Neuts % (Manual) Lymphocytes % (Manual) Seg Neutrophils # Seg Neutrophils # Man Lymphocytes # (Manual) Monocytes % (Manual) Eosinophils % (Manual) Monocytes # (Manual) Eosinophils # (Manual) D-Dimer Heparin Anti-Xa Level ABG pH POC ABG pCO2 POC ABG pO2 ABG pO2 ABG HCO3 ABG O2 Saturation ABG Base Excess ABG Hemoglobin ABG Oxyhemoglobin VBG pH Oxyhemoglobin Sodium Potassium Chloride Carbon Dioxide BUN Creatinine Glucose POC Glucose 112 H 140 H Lactic Acid Calcium Ferritin AST Alkaline Phosphatase Magnesium Lactate Dehydrogenase Total Creatine Kinase CK-MB (CK-2) C-Reactive Protein Total Protein Albumin Troponin T HDL Cholesterol Urine WBC (Auto) Urine Creatinine Urine Total Protein Coronavirus (PCR) Positive A Crossmatch 06/30/20 06/30/20 06/30/20 04:10 04:10 06:09 WBC RBC 2.44 L Hgb 7.1 L Hct 21.5 L MCHC RDW 16.6 H Lymph % (Auto) 11.0 L Nye % (Auto) 10.8 H Eos % (Auto) Lymph # 0.9 L Nye # 0.9 H Lymph # (Auto) Nye # (Auto) Seg Neutrophils % 73.7 H Seg Neuts % (Manual) Lymphocytes % (Manual) Seg Neutrophils # Seg Neutrophils # Man Lymphocytes # (Manual) Monocytes % (Manual) Eosinophils % (Manual) Monocytes # (Manual) Eosinophils # (Manual) D-Dimer Heparin Anti-Xa Level ABG pH POC ABG pCO2 POC ABG pO2 ABG pO2 ABG HCO3 ABG O2 Saturation ABG Base Excess ABG Hemoglobin ABG Oxyhemoglobin VBG pH Oxyhemoglobin Sodium Potassium Chloride 109.1 H Carbon Dioxide BUN 74 H Creatinine 1.3 H Glucose 191 H POC Glucose 187 H Lactic Acid Calcium 7.8 L Ferritin AST Alkaline Phosphatase Magnesium Lactate Dehydrogenase Total Creatine Kinase CK-MB (CK-2) C-Reactive Protein Total Protein Albumin Troponin T HDL Cholesterol Urine WBC (Auto) Urine Creatinine Urine Total Protein Coronavirus (PCR) Crossmatch 06/30/20 06/30/20 06/30/20 12:04 17:43 23:41 WBC RBC Hgb Hct MCHC RDW Lymph % (Auto) Nye % (Auto) Eos % (Auto) Lymph # Nye # Lymph # (Auto) Nye # (Auto) Seg Neutrophils % Seg Neuts % (Manual) Lymphocytes % (Manual) Seg Neutrophils # Seg Neutrophils # Man Lymphocytes # (Manual) Monocytes % (Manual) Eosinophils % (Manual) Monocytes # (Manual) Eosinophils # (Manual) D-Dimer Heparin Anti-Xa Level ABG pH POC ABG pCO2 POC ABG pO2 ABG pO2 ABG HCO3 ABG O2 Saturation ABG Base Excess ABG Hemoglobin ABG Oxyhemoglobin VBG pH Oxyhemoglobin Sodium Potassium Chloride Carbon Dioxide BUN Creatinine Glucose POC Glucose 112 H 177 H 143 H Lactic Acid Calcium Ferritin AST Alkaline Phosphatase Magnesium Lactate Dehydrogenase Total Creatine Kinase CK-MB (CK-2) C-Reactive Protein Total Protein Albumin Troponin T HDL Cholesterol Urine WBC (Auto) Urine Creatinine Urine Total Protein Coronavirus (PCR) Crossmatch 07/01/20 07/01/20 07/01/20 05:02 05:52 06:01 WBC 12.6 H RBC 2.95 L Hgb 8.2 L Hct 26.0 L MCHC RDW 16.9 H Lymph % (Auto) Nye % (Auto) Eos % (Auto) Lymph # Nye # Lymph # (Auto) Nye # (Auto) Seg Neutrophils % Seg Neuts % (Manual) Lymphocytes % (Manual) Seg Neutrophils # Seg Neutrophils # Man 8.6 H Lymphocytes # (Manual) Monocytes % (Manual) Eosinophils % (Manual) 5.0 H Monocytes # (Manual) Eosinophils # (Manual) 0.6 H D-Dimer Heparin Anti-Xa Level ABG pH POC ABG pCO2 POC ABG pO2 ABG pO2 ABG HCO3 ABG O2 Saturation ABG Base Excess ABG Hemoglobin 8.2 L ABG Oxyhemoglobin VBG pH Oxyhemoglobin Sodium Potassium Chloride Carbon Dioxide BUN Creatinine Glucose POC Glucose 129 H Lactic Acid Calcium Ferritin AST Alkaline Phosphatase Magnesium Lactate Dehydrogenase Total Creatine Kinase CK-MB (CK-2) C-Reactive Protein Total Protein Albumin Troponin T HDL Cholesterol Urine WBC (Auto) Urine Creatinine Urine Total Protein Coronavirus (PCR) Crossmatch 07/01/20 07/01/20 07/01/20 06:01 06:01 06:08 WBC RBC Hgb Hct MCHC RDW Lymph % (Auto) Nye % (Auto) Eos % (Auto) Lymph # Nye # Lymph # (Auto) Nye # (Auto) Seg Neutrophils % Seg Neuts % (Manual) Lymphocytes % (Manual) Seg Neutrophils # Seg Neutrophils # Man Lymphocytes # (Manual) Monocytes % (Manual) Eosinophils % (Manual) Monocytes # (Manual) Eosinophils # (Manual) D-Dimer Heparin Anti-Xa Level ABG pH POC ABG pCO2 POC ABG pO2 ABG pO2 ABG HCO3 ABG O2 Saturation ABG Base Excess ABG Hemoglobin ABG Oxyhemoglobin VBG pH Oxyhemoglobin Sodium 147 H Potassium Chloride 108.0 H Carbon Dioxide BUN 71 H Creatinine 1.3 H Glucose 193 H POC Glucose 192 H Lactic Acid Calcium 8.1 L Ferritin AST Alkaline Phosphatase Magnesium Lactate Dehydrogenase Total Creatine Kinase 300 H CK-MB (CK-2) C-Reactive Protein Total Protein Albumin Troponin T 0.067 H HDL Cholesterol 61 H Urine WBC (Auto) Urine Creatinine Urine Total Protein Coronavirus (PCR) Crossmatch 07/01/20 07/01/20 07/02/20 12:23 17:40 00:18 WBC RBC Hgb Hct MCHC RDW Lymph % (Auto) Nye % (Auto) Eos % (Auto) Lymph # Nye # Lymph # (Auto) Nye # (Auto) Seg Neutrophils % Seg Neuts % (Manual) Lymphocytes % (Manual) Seg Neutrophils # Seg Neutrophils # Man Lymphocytes # (Manual) Monocytes % (Manual) Eosinophils % (Manual) Monocytes # (Manual) Eosinophils # (Manual) D-Dimer Heparin Anti-Xa Level ABG pH POC ABG pCO2 POC ABG pO2 ABG pO2 ABG HCO3 ABG O2 Saturation ABG Base Excess ABG Hemoglobin ABG Oxyhemoglobin VBG pH Oxyhemoglobin Sodium Potassium Chloride Carbon Dioxide BUN Creatinine Glucose POC Glucose 111 H 135 H 145 H Lactic Acid Calcium Ferritin AST Alkaline Phosphatase Magnesium Lactate Dehydrogenase Total Creatine Kinase CK-MB (CK-2) C-Reactive Protein Total Protein Albumin Troponin T HDL Cholesterol Urine WBC (Auto) Urine Creatinine Urine Total Protein Coronavirus (PCR) Crossmatch 07/02/20 07/02/20 07/02/20 04:11 04:23 05:54 WBC RBC Hgb Hct MCHC RDW Lymph % (Auto) Nye % (Auto) Eos % (Auto) Lymph # Nye # Lymph # (Auto) Nye # (Auto) Seg Neutrophils % Seg Neuts % (Manual) Lymphocytes % (Manual) Seg Neutrophils # Seg Neutrophils # Man Lymphocytes # (Manual) Monocytes % (Manual) Eosinophils % (Manual) Monocytes # (Manual) Eosinophils # (Manual) D-Dimer Heparin Anti-Xa Level ABG pH POC ABG pCO2 POC ABG pO2 ABG pO2 ABG HCO3 ABG O2 Saturation ABG Base Excess ABG Hemoglobin 5.4 L ABG Oxyhemoglobin VBG pH Oxyhemoglobin Sodium Potassium Chloride 108.6 H Carbon Dioxide BUN 72 H Creatinine Glucose 112 H POC Glucose 137 H Lactic Acid Calcium 7.8 L Ferritin AST Alkaline Phosphatase Magnesium Lactate Dehydrogenase Total Creatine Kinase CK-MB (CK-2) C-Reactive Protein Total Protein Albumin Troponin T HDL Cholesterol Urine WBC (Auto) Urine Creatinine Urine Total Protein Coronavirus (PCR) Crossmatch 07/02/20 07/02/20 07/02/20 11:38 18:04 23:59 WBC RBC Hgb Hct MCHC RDW Lymph % (Auto) Nye % (Auto) Eos % (Auto) Lymph # Nye # Lymph # (Auto) Nye # (Auto) Seg Neutrophils % Seg Neuts % (Manual) Lymphocytes % (Manual) Seg Neutrophils # Seg Neutrophils # Man Lymphocytes # (Manual) Monocytes % (Manual) Eosinophils % (Manual) Monocytes # (Manual) Eosinophils # (Manual) D-Dimer Heparin Anti-Xa Level ABG pH POC ABG pCO2 POC ABG pO2 ABG pO2 ABG HCO3 ABG O2 Saturation ABG Base Excess ABG Hemoglobin ABG Oxyhemoglobin VBG pH Oxyhemoglobin Sodium Potassium Chloride Carbon Dioxide BUN Creatinine Glucose POC Glucose 128 H 135 H 156 H Lactic Acid Calcium Ferritin AST Alkaline Phosphatase Magnesium Lactate Dehydrogenase Total Creatine Kinase CK-MB (CK-2) C-Reactive Protein Total Protein Albumin Troponin T HDL Cholesterol Urine WBC (Auto) Urine Creatinine Urine Total Protein Coronavirus (PCR) Crossmatch 07/03/20 07/03/20 07/03/20 03:49 06:00 11:31 WBC RBC Hgb Hct MCHC RDW Lymph % (Auto) Nye % (Auto) Eos % (Auto) Lymph # Nye # Lymph # (Auto) Nye # (Auto) Seg Neutrophils % Seg Neuts % (Manual) Lymphocytes % (Manual) Seg Neutrophils # Seg Neutrophils # Man Lymphocytes # (Manual) Monocytes % (Manual) Eosinophils % (Manual) Monocytes # (Manual) Eosinophils # (Manual) D-Dimer Heparin Anti-Xa Level ABG pH POC ABG pCO2 POC ABG pO2 ABG pO2 121.0 H ABG HCO3 ABG O2 Saturation ABG Base Excess ABG Hemoglobin 8.5 L ABG Oxyhemoglobin VBG pH Oxyhemoglobin Sodium Potassium Chloride Carbon Dioxide BUN Creatinine Glucose POC Glucose 135 H 141 H Lactic Acid Calcium Ferritin AST Alkaline Phosphatase Magnesium Lactate Dehydrogenase Total Creatine Kinase CK-MB (CK-2) C-Reactive Protein Total Protein Albumin Troponin T HDL Cholesterol Urine WBC (Auto) Urine Creatinine Urine Total Protein Coronavirus (PCR) Crossmatch 07/03/20 07/03/20 07/04/20 16:07 17:40 05:49 WBC RBC Hgb Hct MCHC RDW Lymph % (Auto) Nye % (Auto) Eos % (Auto) Lymph # Nye # Lymph # (Auto) Nye # (Auto) Seg Neutrophils % Seg Neuts % (Manual) Lymphocytes % (Manual) Seg Neutrophils # Seg Neutrophils # Man Lymphocytes # (Manual) Monocytes % (Manual) Eosinophils % (Manual) Monocytes # (Manual) Eosinophils # (Manual) D-Dimer Heparin Anti-Xa Level ABG pH POC ABG pCO2 POC ABG pO2 ABG pO2 126.9 H ABG HCO3 ABG O2 Saturation ABG Base Excess ABG Hemoglobin 8.1 L ABG Oxyhemoglobin VBG pH Oxyhemoglobin Sodium Potassium Chloride Carbon Dioxide BUN Creatinine Glucose POC Glucose 120 H 128 H Lactic Acid Calcium Ferritin AST Alkaline Phosphatase Magnesium Lactate Dehydrogenase Total Creatine Kinase CK-MB (CK-2) C-Reactive Protein Total Protein Albumin Troponin T HDL Cholesterol Urine WBC (Auto) Urine Creatinine Urine Total Protein Coronavirus (PCR) Crossmatch 07/04/20 07/04/20 07/05/20 11:54 18:00 00:07 WBC RBC Hgb Hct MCHC RDW Lymph % (Auto) Nye % (Auto) Eos % (Auto) Lymph # Nye # Lymph # (Auto) Nye # (Auto) Seg Neutrophils % Seg Neuts % (Manual) Lymphocytes % (Manual) Seg Neutrophils # Seg Neutrophils # Man Lymphocytes # (Manual) Monocytes % (Manual) Eosinophils % (Manual) Monocytes # (Manual) Eosinophils # (Manual) D-Dimer Heparin Anti-Xa Level ABG pH POC ABG pCO2 POC ABG pO2 ABG pO2 ABG HCO3 ABG O2 Saturation ABG Base Excess ABG Hemoglobin ABG Oxyhemoglobin VBG pH Oxyhemoglobin Sodium Potassium Chloride Carbon Dioxide BUN Creatinine Glucose POC Glucose 168 H 133 H 121 H Lactic Acid Calcium Ferritin AST Alkaline Phosphatase Magnesium Lactate Dehydrogenase Total Creatine Kinase CK-MB (CK-2) C-Reactive Protein Total Protein Albumin Troponin T HDL Cholesterol Urine WBC (Auto) Urine Creatinine Urine Total Protein Coronavirus (PCR) Crossmatch 07/05/20 07/05/20 07/05/20 01:12 02:30 12:09 WBC RBC 2.35 L Hgb 6.9 L Hct 21.1 L MCHC RDW 16.8 H Lymph % (Auto) Nye % (Auto) Eos % (Auto) Lymph # Nye # Lymph # (Auto) Nye # (Auto) Seg Neutrophils % Seg Neuts % (Manual) 74.0 H Lymphocytes % (Manual) 12.0 L Seg Neutrophils # Seg Neutrophils # Man 8.0 H Lymphocytes # (Manual) Monocytes % (Manual) 9.0 H Eosinophils % (Manual) Monocytes # (Manual) 1.0 H Eosinophils # (Manual) D-Dimer Heparin Anti-Xa Level ABG pH POC ABG pCO2 POC ABG pO2 ABG pO2 ABG HCO3 ABG O2 Saturation ABG Base Excess ABG Hemoglobin ABG Oxyhemoglobin VBG pH Oxyhemoglobin Sodium Potassium Chloride Carbon Dioxide BUN Creatinine Glucose POC Glucose 132 H Lactic Acid Calcium Ferritin AST Alkaline Phosphatase Magnesium Lactate Dehydrogenase Total Creatine Kinase CK-MB (CK-2) C-Reactive Protein Total Protein Albumin Troponin T HDL Cholesterol Urine WBC (Auto) Urine Creatinine Urine Total Protein Coronavirus (PCR) Crossmatch See Detail 07/05/20 07/05/20 07/05/20 13:05 18:04 23:13 WBC RBC 2.57 L Hgb 7.7 L Hct 23.0 L MCHC RDW 16.9 H Lymph % (Auto) Nye % (Auto) Eos % (Auto) Lymph # Nye # Lymph # (Auto) Nye # (Auto) Seg Neutrophils % Seg Neuts % (Manual) Lymphocytes % (Manual) Seg Neutrophils # Seg Neutrophils # Man Lymphocytes # (Manual) Monocytes % (Manual) Eosinophils % (Manual) Monocytes # (Manual) Eosinophils # (Manual) D-Dimer Heparin Anti-Xa Level ABG pH 7.32 L POC ABG pCO2 POC ABG pO2 ABG pO2 78.3 L ABG HCO3 ABG O2 Saturation ABG Base Excess -2.6 L ABG Hemoglobin 7.3 L ABG Oxyhemoglobin VBG pH Oxyhemoglobin Sodium Potassium Chloride Carbon Dioxide BUN Creatinine Glucose POC Glucose 160 H Lactic Acid Calcium Ferritin AST Alkaline Phosphatase Magnesium Lactate Dehydrogenase Total Creatine Kinase CK-MB (CK-2) C-Reactive Protein Total Protein Albumin Troponin T HDL Cholesterol Urine WBC (Auto) Urine Creatinine Urine Total Protein Coronavirus (PCR) Crossmatch 07/05/20 07/05/20 07/06/20 23:13 23:43 13:20 WBC RBC Hgb Hct MCHC RDW Lymph % (Auto) Nye % (Auto) Eos % (Auto) Lymph # Nye # Lymph # (Auto) Nye # (Auto) Seg Neutrophils % Seg Neuts % (Manual) Lymphocytes % (Manual) Seg Neutrophils # Seg Neutrophils # Man Lymphocytes # (Manual) Monocytes % (Manual) Eosinophils % (Manual) Monocytes # (Manual) Eosinophils # (Manual) D-Dimer Heparin Anti-Xa Level ABG pH POC ABG pCO2 POC ABG pO2 ABG pO2 ABG HCO3 ABG O2 Saturation ABG Base Excess ABG Hemoglobin ABG Oxyhemoglobin VBG pH Oxyhemoglobin Sodium Potassium Chloride Carbon Dioxide 20 L BUN 80 H Creatinine 2.4 H D Glucose 124 H POC Glucose 121 H Lactic Acid Calcium 7.6 L Ferritin AST Alkaline Phosphatase Magnesium Lactate Dehydrogenase Total Creatine Kinase CK-MB (CK-2) C-Reactive Protein Total Protein Albumin Troponin T HDL Cholesterol Urine WBC (Auto) Urine Creatinine 33.3 H Urine Total Protein Coronavirus (PCR) Crossmatch 07/06/20 07/06/20 07/07/20 14:48 17:28 00:12 WBC RBC Hgb Hct MCHC RDW Lymph % (Auto) Nye % (Auto) Eos % (Auto) Lymph # Nye # Lymph # (Auto) Nye # (Auto) Seg Neutrophils % Seg Neuts % (Manual) Lymphocytes % (Manual) Seg Neutrophils # Seg Neutrophils # Man Lymphocytes # (Manual) Monocytes % (Manual) Eosinophils % (Manual) Monocytes # (Manual) Eosinophils # (Manual) D-Dimer Heparin Anti-Xa Level ABG pH POC ABG pCO2 POC ABG pO2 ABG pO2 ABG HCO3 ABG O2 Saturation ABG Base Excess ABG Hemoglobin ABG Oxyhemoglobin VBG pH Oxyhemoglobin Sodium 136 L Potassium 5.5 H Chloride Carbon Dioxide 19 L BUN 82 H Creatinine 2.5 H Glucose 113 H POC Glucose 133 H 154 H Lactic Acid Calcium 7.7 L Ferritin AST Alkaline Phosphatase Magnesium Lactate Dehydrogenase Total Creatine Kinase CK-MB (CK-2) C-Reactive Protein Total Protein Albumin Troponin T HDL Cholesterol Urine WBC (Auto) Urine Creatinine Urine Total Protein Coronavirus (PCR) Crossmatch 07/07/20 07/07/20 07/07/20 04:15 04:15 05:31 WBC RBC 2.28 L Hgb 6.8 L Hct 20.7 L MCHC RDW 16.8 H Lymph % (Auto) Nye % (Auto) Eos % (Auto) Lymph # Nye # Lymph # (Auto) Nye # (Auto) Seg Neutrophils % Seg Neuts % (Manual) Lymphocytes % (Manual) 13.0 L Seg Neutrophils # Seg Neutrophils # Man Lymphocytes # (Manual) 1.0 L Monocytes % (Manual) 11.0 H Eosinophils % (Manual) Monocytes # (Manual) 0.9 H Eosinophils # (Manual) D-Dimer Heparin Anti-Xa Level ABG pH POC ABG pCO2 POC ABG pO2 ABG pO2 ABG HCO3 ABG O2 Saturation ABG Base Excess ABG Hemoglobin ABG Oxyhemoglobin VBG pH Oxyhemoglobin Sodium Potassium Chloride Carbon Dioxide BUN Creatinine Glucose POC Glucose 135 H Lactic Acid Calcium Ferritin AST Alkaline Phosphatase Magnesium 2.50 H Lactate Dehydrogenase Total Creatine Kinase CK-MB (CK-2) C-Reactive Protein Total Protein Albumin Troponin T HDL Cholesterol Urine WBC (Auto) Urine Creatinine Urine Total Protein Coronavirus (PCR) Crossmatch 07/07/20 07/07/20 07/07/20 12:31 13:22 17:55 WBC RBC Hgb Hct MCHC RDW Lymph % (Auto) Nye % (Auto) Eos % (Auto) Lymph # Nye # Lymph # (Auto) Nye # (Auto) Seg Neutrophils % Seg Neuts % (Manual) Lymphocytes % (Manual) Seg Neutrophils # Seg Neutrophils # Man Lymphocytes # (Manual) Monocytes % (Manual) Eosinophils % (Manual) Monocytes # (Manual) Eosinophils # (Manual) D-Dimer Heparin Anti-Xa Level ABG pH POC ABG pCO2 POC ABG pO2 ABG pO2 ABG HCO3 ABG O2 Saturation ABG Base Excess ABG Hemoglobin ABG Oxyhemoglobin VBG pH Oxyhemoglobin Sodium Potassium 5.6 H Chloride Carbon Dioxide BUN 86 H Creatinine 2.9 H Glucose 127 H POC Glucose 131 H 136 H Lactic Acid Calcium 8.1 L Ferritin AST Alkaline Phosphatase Magnesium Lactate Dehydrogenase Total Creatine Kinase CK-MB (CK-2) C-Reactive Protein Total Protein Albumin Troponin T HDL Cholesterol Urine WBC (Auto) Urine Creatinine Urine Total Protein Coronavirus (PCR) Crossmatch 07/07/20 07/08/20 07/08/20 23:33 04:14 04:14 WBC RBC 3.28 L Hgb 9.7 L Hct 28.9 L D MCHC RDW 16.4 H Lymph % (Auto) 10.3 L Nye % (Auto) 10.0 H Eos % (Auto) Lymph # Nye # Lymph # (Auto) 1.1 L Nye # (Auto) 1.1 H Seg Neutrophils % 77.2 H Seg Neuts % (Manual) Lymphocytes % (Manual) Seg Neutrophils # 8.2 H Seg Neutrophils # Man Lymphocytes # (Manual) Monocytes % (Manual) Eosinophils % (Manual) Monocytes # (Manual) Eosinophils # (Manual) D-Dimer Heparin Anti-Xa Level ABG pH POC ABG pCO2 POC ABG pO2 ABG pO2 ABG HCO3 ABG O2 Saturation ABG Base Excess ABG Hemoglobin ABG Oxyhemoglobin VBG pH Oxyhemoglobin Sodium 136 L Potassium Chloride Carbon Dioxide BUN 84 H Creatinine 2.8 H Glucose 109 H POC Glucose 159 H Lactic Acid Calcium 8.1 L Ferritin AST Alkaline Phosphatase Magnesium 2.50 H Lactate Dehydrogenase Total Creatine Kinase CK-MB (CK-2) C-Reactive Protein Total Protein Albumin Troponin T HDL Cholesterol Urine WBC (Auto) Urine Creatinine Urine Total Protein Coronavirus (PCR) Crossmatch 07/08/20 07/08/20 07/08/20 12:10 18:10 23:50 WBC RBC Hgb Hct MCHC RDW Lymph % (Auto) Nye % (Auto) Eos % (Auto) Lymph # Nye # Lymph # (Auto) Nye # (Auto) Seg Neutrophils % Seg Neuts % (Manual) Lymphocytes % (Manual) Seg Neutrophils # Seg Neutrophils # Man Lymphocytes # (Manual) Monocytes % (Manual) Eosinophils % (Manual) Monocytes # (Manual) Eosinophils # (Manual) D-Dimer Heparin Anti-Xa Level ABG pH POC ABG pCO2 POC ABG pO2 ABG pO2 ABG HCO3 ABG O2 Saturation ABG Base Excess ABG Hemoglobin ABG Oxyhemoglobin VBG pH Oxyhemoglobin Sodium Potassium Chloride Carbon Dioxide BUN Creatinine Glucose POC Glucose 108 H 125 H 141 H Lactic Acid Calcium Ferritin AST Alkaline Phosphatase Magnesium Lactate Dehydrogenase Total Creatine Kinase CK-MB (CK-2) C-Reactive Protein Total Protein Albumin Troponin T HDL Cholesterol Urine WBC (Auto) Urine Creatinine Urine Total Protein Coronavirus (PCR) Crossmatch 07/09/20 07/09/20 07/09/20 05:39 11:57 17:56 WBC RBC Hgb Hct MCHC RDW Lymph % (Auto) Nye % (Auto) Eos % (Auto) Lymph # Nye # Lymph # (Auto) Nye # (Auto) Seg Neutrophils % Seg Neuts % (Manual) Lymphocytes % (Manual) Seg Neutrophils # Seg Neutrophils # Man Lymphocytes # (Manual) Monocytes % (Manual) Eosinophils % (Manual) Monocytes # (Manual) Eosinophils # (Manual) D-Dimer Heparin Anti-Xa Level ABG pH POC ABG pCO2 POC ABG pO2 ABG pO2 ABG HCO3 ABG O2 Saturation ABG Base Excess ABG Hemoglobin ABG Oxyhemoglobin VBG pH Oxyhemoglobin Sodium Potassium Chloride Carbon Dioxide BUN Creatinine Glucose POC Glucose 121 H 123 H 119 H Lactic Acid Calcium Ferritin AST Alkaline Phosphatase Magnesium Lactate Dehydrogenase Total Creatine Kinase CK-MB (CK-2) C-Reactive Protein Total Protein Albumin Troponin T HDL Cholesterol Urine WBC (Auto) Urine Creatinine Urine Total Protein Coronavirus (PCR) Crossmatch 07/10/20 07/10/20 07/10/20 00:29 05:50 10:41 WBC RBC 3.11 L Hgb 9.2 L Hct 27.6 L MCHC RDW 16.6 H Lymph % (Auto) Nye % (Auto) Eos % (Auto) Lymph # Nye # Lymph # (Auto) Nye # (Auto) Seg Neutrophils % Seg Neuts % (Manual) 78.0 H Lymphocytes % (Manual) 11.0 L Seg Neutrophils # Seg Neutrophils # Man Lymphocytes # (Manual) 1.0 L Monocytes % (Manual) Eosinophils % (Manual) Monocytes # (Manual) Eosinophils # (Manual) D-Dimer Heparin Anti-Xa Level ABG pH POC ABG pCO2 POC ABG pO2 ABG pO2 ABG HCO3 ABG O2 Saturation ABG Base Excess ABG Hemoglobin ABG Oxyhemoglobin VBG pH Oxyhemoglobin Sodium Potassium Chloride Carbon Dioxide BUN Creatinine Glucose POC Glucose 122 H 124 H Lactic Acid Calcium Ferritin AST Alkaline Phosphatase Magnesium Lactate Dehydrogenase Total Creatine Kinase CK-MB (CK-2) C-Reactive Protein Total Protein Albumin Troponin T HDL Cholesterol Urine WBC (Auto) Urine Creatinine Urine Total Protein Coronavirus (PCR) Crossmatch 07/10/20 07/10/20 07/10/20 10:41 12:25 18:10 WBC RBC Hgb Hct MCHC RDW Lymph % (Auto) Nye % (Auto) Eos % (Auto) Lymph # Nye # Lymph # (Auto) Nye # (Auto) Seg Neutrophils % Seg Neuts % (Manual) Lymphocytes % (Manual) Seg Neutrophils # Seg Neutrophils # Man Lymphocytes # (Manual) Monocytes % (Manual) Eosinophils % (Manual) Monocytes # (Manual) Eosinophils # (Manual) D-Dimer Heparin Anti-Xa Level ABG pH POC ABG pCO2 POC ABG pO2 ABG pO2 ABG HCO3 ABG O2 Saturation ABG Base Excess ABG Hemoglobin ABG Oxyhemoglobin VBG pH Oxyhemoglobin Sodium Potassium Chloride Carbon Dioxide BUN 85 H Creatinine 2.5 H Glucose 133 H POC Glucose 131 H 134 H Lactic Acid Calcium Ferritin AST Alkaline Phosphatase 131 H Magnesium Lactate Dehydrogenase Total Creatine Kinase CK-MB (CK-2) C-Reactive Protein Total Protein 5.2 L Albumin 1.6 L Troponin T HDL Cholesterol Urine WBC (Auto) Urine Creatinine Urine Total Protein Coronavirus (PCR) Crossmatch 07/11/20 07/11/20 07/11/20 00:28 05:57 12:14 WBC RBC Hgb Hct MCHC RDW Lymph % (Auto) Nye % (Auto) Eos % (Auto) Lymph # Nye # Lymph # (Auto) Nye # (Auto) Seg Neutrophils % Seg Neuts % (Manual) Lymphocytes % (Manual) Seg Neutrophils # Seg Neutrophils # Man Lymphocytes # (Manual) Monocytes % (Manual) Eosinophils % (Manual) Monocytes # (Manual) Eosinophils # (Manual) D-Dimer Heparin Anti-Xa Level ABG pH POC ABG pCO2 POC ABG pO2 ABG pO2 ABG HCO3 ABG O2 Saturation ABG Base Excess ABG Hemoglobin ABG Oxyhemoglobin VBG pH Oxyhemoglobin Sodium Potassium Chloride Carbon Dioxide BUN Creatinine Glucose POC Glucose 140 H 148 H 147 H Lactic Acid Calcium Ferritin AST Alkaline Phosphatase Magnesium Lactate Dehydrogenase Total Creatine Kinase CK-MB (CK-2) C-Reactive Protein Total Protein Albumin Troponin T HDL Cholesterol Urine WBC (Auto) Urine Creatinine Urine Total Protein Coronavirus (PCR) Crossmatch Allied health notes reviewed: nursing
[2020-07-11] MEDS: INSULIN GLARGINE 100 UNITS/ML SUB-Q SCH (21:03)
[2020-07-12 06:19] LABS: Hematocrit 25.3 % (30.3-42.9); Hemoglobin 8.5 gm/dl (10.1-14.3); Mean Corpuscular HGB Conc 34 % (30-34); Mean Corpuscular Volume 91 fl (79-97); Platelet Count 298 K/mm3 (140-440); Red Blood Count 2.78 M/mm3 (3.65-5.03); Red Cell Distribution Width 16.7 % (13.2-15.2)
[2020-07-12] MEDS: hydrALAZINE 25 MG TAB PO SCH ×3 (06:33→22:19)
[2020-07-12] MEDS: HEPARIN 5,000 UNIT/1 ML VIAL SUB-Q SCH ×3 (06:34→22:19)
[2020-07-12] MEDS: INSULIN LISPRO 100 UNIT/ML VIAL 3 mL SUB-Q SCH ×4 (06:36→18:43)
[2020-07-12 06:53] LABS: Calcium 8.5 mg/dL (8.4-10.2)
[2020-07-12 07:19] LABS: Anisocytosis 1+; Band Neutrophils # (Manual) 0.1 K/mm3; Basophils % (Manual) 0 % (0.0-1.8); Platelet Estimate Consistent w Auto; Total Cells Counted 100
[2020-07-12] MEDS: GLYCOPYRROLATE 2 MG TAB PO SCH ×3 (08:25→21:16)
[2020-07-12] MEDS: levETIRAcetam 500 MG/5 ML ORAL LIQD PO SCH ×2 (09:21→22:51)
[2020-07-12] MEDS: MODAFINIL 100 MG TAB PO SCH (09:21)
[2020-07-12] MEDS: carvediloL 12.5 MG TAB PO SCH ×2 (09:21→22:18)
[2020-07-12] MEDS: cloNIDine 0.2 MG TAB PO SCH ×2 (09:21→22:28)
[2020-07-12] MEDS: LANSOPRAZOLE 30 MG SOLUTAB FEEDTUBE SCH ×2 (09:21→22:23)
[2020-07-12] MEDS: amLODIPine 10 MG TAB PO SCH (09:22)
[2020-07-12] MEDS: SENNOSIDES ORAL LIQD 8.8 MG/5 ML ORAL LIQD FEEDTUBE SCH ×2 (09:22→22:29)
--- NOTE | 2020-07-12 09:36 | Progress Note ---
Assessment and Plan Assessment and plan: -- Acute hypoxemic respiratory failure intubated on admission, extubated on 06/12/20 then placed on high flow o2 patient developed another respiratory arrest on 06/26 - reintubated Patient not tolerating weaning parameters CC following, may need trach and PEG if unable to wean --Hyperkalemia; resolved Monitor electrolytes -- Hypertension; uncontrolled Increase hydralazine dose to 75 mg 3 times a day Continue amlodipine, coreg, clonidine and hydralazine --Worsening renal function; creatinine 2.4-2.5-2.9 Vasomotor nephropathy, gentle hydration Avoid nephrotoxins, monitor renal function Reconsult nephrology --Rectal bleeding; Hb dropped from 8.2 -6.9-7.7-6.8 today, Transfused 1 unit PRBC Closely monitor H&H, GI following, no plans of endoscopy --Acute blood loss anemia; Received 2 units of PRBC transfusion, Hb improved from 6.9-7.7-6.8 Patient received 2 units of PRBC in the past, transfuse 1 additional unit today Closely monitor H&H -- s/p cardiopulmonary arrest on admission, 06/26 and 07/01, s/p CPR per ACLS protocol, refer to code sheet --Severe sepsis persistently positive for COVID-19 and Klebsiella pneumoniae ID following, completed treatment for COVID-19 and completed antibiotic --COVID-19 b/l PNA Completed remdesivir on 06/02 Completed dexamethasone - Last dose 06/07 ID recs appreciated. COVID-19 positive since 05/28/2020 Repeat test 06/29 still positive --Superficial left cephalic vein DVT/elevated D-dimers[COVID 19] Patient initially started on heparin drip from 05/29/20 D-dimers improved [id number] Heparin drip discontinued treated with Eliquis 5 mg twice a day for 1 week[per ID] stop date 06/26/2020 -- Acute toxic metabolic encephalopathy, POA likely from sepsis and s/p cardiac arrest with possible anoxic injury -- Acute renal failure: likely ATN Resolved, avoid nephrotoxins --Klebsiella pneumonia: Initially completed antibiotics with cefepime Repeat sputum culture still positive for Klebsiella, restarted antibiotic Completed second round of 5 days of cefepime on 07/04/2020 --Acute on chronic systolic heart failure Cardiology following. Ef 45% -- Coffee ground emesis -Stress ulcers Possible stress ulcers, On PPI H/H again dropped - transfuse GI evaluated --Transaminitis. Etiology likely from COVID-19. cont to monitor -- DVT prophylaxis Eliquis, SCD to bilateral lower extremities while in bed -- Advance care planning Patient is critically ill with multiple medical problems Poor prognosis, family updated and requesting full code 06/26; Code blue called. ACLS initiated, Pt found to have Asystolic Arrest with eventual return of perfusing cardiac rhythm. patient reintubated during code, transferred to ICU, called family and updated 06/28: Patient is spiking fever, started on empiric antibiotic, ordered blood urine and sputum culture. We will reconsult ID. Discussed with patient's son in the evening. Family wants to continue full CODE STATUS. Discussed with critical care attending and RN in length. 06/29: Repeat COVID-19 test is positive. Patient remains on ventilator, continue tube feeding diet. Renal function stable, H&H stable. GI recommendation appreciated -no plan for endoscopy now as there is no active bleeding. 06/30: Renal function improving, patient remains positive for COVID. Tolerating tube feeding, wean off vent as tolerated. Patient remains with poor prognosis 07/05; patient has significant drop in H&H, hemoglobin today is 6.9, heme positive stool, type and cross transfuse 2 units of PRBC GI following, no plans of endoscopy 07/07; Hb dropped to 7.7-6.8, no new episodes of bleeding, transfuse additional 1 unit PRBC today Closely monitor H&H, worsening renal function, hyperkalemia, calcium chloride Kayexalate, gentle hydration, reconsult nephrology 07/08: Patient not tolerating weaning parameters, if unable to wean may need trach and PEG, patient critically ill poor prognosis 07/11/2020. Patient currently on mechanical ventilation AC/PRVC with rate of 12, tidal volume 450, FiO2 30% and PEEP of 6 07/12/2020. Patient placed on CPAP with pressure support of 10 and tolerating well. Continue PSB trials as tolerated. The high probability of a clinically significant, sudden or life threatening deterioration of the [CVS, renal, respiratory, STUDENT COUNSELOR] system(s) required my full and direct attention, intervention and personal management. The aggregate critical care time was [33] minutes. This time is in addition to time spent performing reported procedures but includes the following: [x] Data Review and interpretation [x] Patient assessment and monitoring of vital signs [x] Documentation [x] Medication orders and management History Interval history: 64-year-old female with hypertension, diastolic CHF, pulmonary hypertension, diabetes, obesity hypoventilation syndrome, bilateral COVID pneumonia, was admitted to the emergency room after she called EMS due to difficulty breathing. On the way to the hospital, patient developed cardiac arrest and was treated as per ACLS protocol. Patient has completed 5 days of IV remdesivir 06/02/2020 and completed steroid. Patient had a second cardiac arrest during hospitalization on 07/01/2020. Patient remains intubated on mechanical ventilation. Hospitalist Physical - Constitutional Vitals: Temp Pulse Resp BP Pulse Ox 97.7 F 86 15 193/78 98 07/12/20 08:00 07/12/20 09:22 07/12/20 08:39 07/12/20 09:22 07/12/20 08:39 General appearance: Present: mild distress, well-nourished, obese (Morbidly obese), other (Intubated on ventilatory support) - EENT Eyes: Present: PERRL, EOM intact ENT: hearing intact, clear oral mucosa, dentition normal - Neck Neck: Present: supple, normal ROM - Respiratory Respiratory effort: normal Respiratory: bilateral: CTA - Cardiovascular Rhythm: regular Heart Sounds: Present: S1 & S2. Absent: gallop, rub - Extremities Extremities: no ischemia, No edema, Full ROM - Abdominal General gastrointestinal: soft, non-tender, non-distended, normal bowel sounds - Integumentary Integumentary: Present: clear, warm, dry - Neurologic Neurologic: CNII-XII intact, moves all extremities HEART Score - HEART Score Troponin: Troponin T 0.067 ng/mL (0.00-0.029) H 07/01/20 06:01 Results - Labs CBC & Chem 7: 07/12/20 05:14 07/12/20 05:14 Labs: Laboratory Last Values WBC 9.3 K/mm3 (4.5-11.0) 07/12/20 05:14 RBC 2.78 M/mm3 (3.65-5.03) L 07/12/20 05:14 Hgb 8.5 gm/dl (10.1-14.3) L 07/12/20 05:14 Hct 25.3 % (30.3-42.9) L 07/12/20 05:14 MCV 91 fl (79-97) 07/12/20 05:14 MCH 31 pg (28-32) 07/12/20 05:14 MCHC 34 % (30-34) 07/12/20 05:14 RDW 16.7 % (13.2-15.2) H 07/12/20 05:14 Plt Count 298 K/mm3 (140-440) 07/12/20 05:14 Lymph % (Auto) 10.3 % (13.4-35.0) L 07/08/20 04:14 [place] % (Auto) 10.0 % (0.0-7.3) H 07/08/20 04:14 Eos % (Auto) 2.0 % (0.0-4.3) 07/08/20 04:14 Baso % (Auto) 0.5 % (0.0-1.8) 07/08/20 04:14 Lymph # (Auto) 1.1 K/mm3 (1.2-5.4) L 07/08/20 04:14 [place] # (Auto) 1.1 K/mm3 (0.0-0.8) H 07/08/20 04:14 Eos # (Auto) 0.2 K/mm3 (0.0-0.4) 07/08/20 04:14 Baso # (Auto) 0.1 K/mm3 (0.0-0.1) 07/08/20 04:14 Add Manual Diff Complete 07/12/20 05:14 Total Counted 100 07/12/20 05:14 Seg Neutrophils % 77.2 % (40.0-70.0) H 07/08/20 04:14 Seg Neuts % (Manual) 81.0 % (40.0-70.0) H 07/12/20 05:14 Band Neutrophils % 1.0 % 07/12/20 05:14 Lymphocytes % (Manual) 6.0 % (13.4-35.0) L 07/12/20 05:14 Reactive Lymphs % (Man) 0 % 07/12/20 05:14 Monocytes % (Manual) 8.0 % (0.0-7.3) H 07/12/20 05:14 Eosinophils % (Manual) 4.0 % (0.0-4.3) 07/12/20 05:14 Basophils % (Manual) 0 % (0.0-1.8) 07/12/20 05:14 Metamyelocytes % 0 % 07/12/20 05:14 Myelocytes % 0 % 07/12/20 05:14 Promyelocytes % 0 % 07/12/20 05:14 Blast Cells % 0 % 07/12/20 05:14 Nucleated RBC % Not Reportable 07/12/20 05:14 Seg Neutrophils # 8.2 K/mm3 (1.8-7.7) H 07/08/20 04:14 Seg Neutrophils # Man 7.5 K/mm3 (1.8-7.7) 07/12/20 05:14 Band Neutrophils # 0.1 K/mm3 07/12/20 05:14 Lymphocytes # (Manual) 0.6 K/mm3 (1.2-5.4) L 07/12/20 05:14 Abs React Lymphs (Man) 0.0 K/mm3 07/12/20 05:14 Monocytes # (Manual) 0.7 K/mm3 (0.0-0.8) 07/12/20 05:14 Eosinophils # (Manual) 0.4 K/mm3 (0.0-0.4) 07/12/20 05:14 Basophils # (Manual) 0.0 K/mm3 (0.0-0.1) 07/12/20 05:14 Metamyelocytes # 0.0 K/mm3 07/12/20 05:14 Myelocytes # 0.0 K/mm3 07/12/20 05:14 Promyelocytes # 0.0 K/mm3 07/12/20 05:14 Blast Cells # 0.0 K/mm3 07/12/20 05:14 WBC Morphology Not Reportable 07/12/20 05:14 Hypersegmented Neuts Not Reportable 07/12/20 05:14 Hyposegmented Neuts Not Reportable 07/12/20 05:14 Hypogranular Neuts Not Reportable 07/12/20 05:14 Smudge Cells Not Reportable 07/12/20 05:14 Toxic Granulation Not Reportable 07/12/20 05:14 Toxic Vacuolation Not Reportable 07/12/20 05:14 Dohle Bodies Not Reportable 07/12/20 05:14 Pelger-Huet Anomaly Not Reportable 07/12/20 05:14 Sanjuanita Rods Not Reportable 07/12/20 05:14 Platelet Estimate Consistent w auto 07/12/20 05:14 Clumped Platelets Not Reportable 07/12/20 05:14 Plt Clumps, EDTA Not Reportable 07/12/20 05:14 Large Platelets Not Reportable 07/12/20 05:14 Giant Platelets Not Reportable 07/12/20 05:14 Platelet Satelliting Not Reportable 07/12/20 05:14 Plt Morphology Comment Not Reportable 07/12/20 05:14 RBC Morphology Not Reportable 07/12/20 05:14 Dimorphic RBCs Not Reportable 07/12/20 05:14 Polychromasia Not Reportable 07/12/20 05:14 Hypochromasia Not Reportable 07/12/20 05:14 Poikilocytosis Not Reportable 07/12/20 05:14 Anisocytosis 1+ 07/12/20 05:14 Microcytosis Not Reportable 07/12/20 05:14 Macrocytosis Not Reportable 07/12/20 05:14 Spherocytes Not Reportable 07/12/20 05:14 Pappenheimer Bodies Not Reportable 07/12/20 05:14 Sickle Cells Not Reportable 07/12/20 05:14 Target Cells Not Reportable 07/12/20 05:14 Tear Drop Cells Not Reportable 07/12/20 05:14 Ovalocytes Not Reportable 07/12/20 05:14 Helmet Cells Not Reportable 07/12/20 05:14 [place] Bodies Not Reportable 07/12/20 05:14 Rutledge Rings Not Reportable 07/12/20 05:14 Julia Cells Not Reportable 07/12/20 05:14 Bite Cells Not Reportable 07/12/20 05:14 Crenated Cell Not Reportable 07/12/20 05:14 Elliptocytes Not Reportable 07/12/20 05:14 Acanthocytes (Spur) Not Reportable 07/12/20 05:14 Rouleaux Not Reportable 07/12/20 05:14 Hemoglobin C Crystals Not Reportable 07/12/20 05:14 Schistocytes Not Reportable 07/12/20 05:14 Malaria parasites Not Reportable 07/12/20 05:14 Kev Bodies Not Reportable 07/12/20 05:14 Hem Pathologist Commnt No 07/12/20 05:14 PT 14.2 Sec. (12.2-14.9) 05/29/20 15:10 INR 1.08 (0.87-1.13) 05/29/20 15:10 APTT 27.2 Sec. (24.2-36.6) 05/29/20 15:10 D-Dimer 2310.15 ng/mlDDU (0-234) H 06/29/20 14:45 Heparin Anti-Xa Level 0.34 U.I./ml (0.3-0.7) 06/19/20 10:46 ABG pH 7.32 pH Units (7.350-7.450) L 07/05/20 13:05 POC ABG pCO2 35.8 mmHg (32.0-48.0) 07/01/20 05:02 ABG pCO2 47.0 mm Hg 07/05/20 13:05 ABG Oxyhemoglobin 92.6 (94-98) L 06/23/20 12:34 POC ABG pO2 90.8 mmHg (83-108) 07/01/20 05:02 ABG pO2 78.3 mm Hg (80.0-90.0) L 07/05/20 13:05 POC ABG HCO3 22.1 07/01/20 05:02 ABG HCO3 23.4 mmol/L (20.0-26.0) 07/05/20 13:05 ABG O2 Saturation 96.1 % (95.0-99.0) 07/05/20 13:05 ABG O2 Content 0.3 (0.0-44) 07/05/20 13:05 POC ABG Base Excess -2.3 07/01/20 05:02 ABG Base Excess -2.6 mmol/L (-2.0-3.0) L 07/05/20 13:05 ABG Hemoglobin 7.3 gm/dl (12.0-16.0) L 07/05/20 13:05 ABG Carboxyhemoglobin 1.7 % (0.0-5.0) 07/05/20 13:05 ABG Methemoglobin 0.2 % (0.0-1.5) 07/05/20 13:05 VBG pH 7.152 (7.320-7.420) L* 05/28/20 13:47 Carboxyhemoglobin 0.5 (0.5-1.5) 06/23/20 12:34 Oxyhemoglobin 97.4 % (95.0-99.0) 07/05/20 13:05 FiO2 30 % 07/05/20 13:05 Sodium 139 mmol/L (137-145) 07/12/20 05:14 Potassium 5.0 mmol/L (3.6-5.0) 07/12/20 05:14 Chloride 103.3 mmol/L (98-107) 07/12/20 05:14 Carbon Dioxide 24 mmol/L (22-30) 07/12/20 05:14 Anion Gap 17 mmol/L 07/12/20 05:14 BUN 79 mg/dL (7-17) H 07/12/20 05:14 Creatinine 2.2 mg/dL (0.6-1.2) H 07/12/20 05:14 Estimated GFR 23 ml/min 07/12/20 05:14 BUN/Creatinine Ratio 36 % 07/12/20 05:14 Glucose 131 mg/dL (65-100) H 07/12/20 05:14 POC Glucose 116 (70-105) H 07/12/20 05:44 Lactic Acid 0.60 mmol/L (0.7-2.0) L 06/27/20 05:00 Calcium 8.5 mg/dL (8.4-10.2) 07/12/20 05:14 Ferritin 223.6 ng/mL (10.0-200.0) H 06/29/20 14:45 Magnesium 2.50 mg/dL (1.7-2.3) H 07/08/20 04:14 Lactate Dehydrogenase 367 units/L (91-180) H 06/29/20 14:45 Total Bilirubin < 0.20 mg/dL (0.1-1.2) 07/10/20 10:41 AST 25 units/L (5-40) 07/10/20 10:41 ALT 11 units/L (7-56) 07/10/20 10:41 Alkaline Phosphatase 131 units/L (35-129) H 07/10/20 10:41 C-Reactive Protein 3.60 mg/dL (0.00-1.30) H 06/29/20 14:45 Total Creatine Kinase 300 units/L (30-135) H 07/01/20 06:01 CK-MB (CK-2) 2.0 ng/mL (0.0-4.0) 07/01/20 06:01 CK-MB (CK-2) Rel Index 0.6 (0-4) 07/01/20 06:01 Troponin T 0.067 ng/mL (0.00-0.029) H 07/01/20 06:01 Total Protein 5.2 g/dL (6.3-8.2) L 07/10/20 10:41 Albumin 1.6 g/dL (3.9-5) L 07/10/20 10:41 Albumin/Globulin Ratio 0.4 % 07/10/20 10:41 Triglycerides 142 mg/dL (2-149) 07/01/20 06:01 Cholesterol 137 mg/dL (50-199) 07/01/20 06:01 LDL Cholesterol Direct 62 mg/dL (50-130) 07/01/20 06:01 HDL Cholesterol 61 mg/dL (40-59) H 07/01/20 06:01 Cholesterol/HDL Ratio 2.24 % 07/01/20 06:01 Procalcitonin 2.45 ng/mL (<0.15) 06/29/20 14:45 Urine Color Yellow (Yellow) 06/06/20 04:00 Urine Turbidity Cloudy (Clear) 06/06/20 04:00 Urine pH 5.0 (5.0-7.0) 06/06/20 04:00 Ur Specific [place] 1.012 (1.003-1.030) 06/06/20 04:00 Urine Protein 100 mg/dl mg/dL (Negative) 06/06/20 04:00 Urine Glucose (UA) 50 mg/dL (Negative) 06/06/20 04:00 Urine Ketones Neg mg/dL (Negative) 06/06/20 04:00 Urine Blood Sm (Negative) 06/06/20 04:00 Urine Nitrite Neg (Negative) 06/06/20 04:00 Urine Bilirubin Neg (Negative) 06/06/20 04:00 Urine Urobilinogen < 2.0 mg/dL (<2.0) 06/06/20 04:00 Ur Leukocyte Esterase Neg (Negative) 06/06/20 04:00 Urine WBC (Auto) 15.0 /HPF (0.0-6.0) H 06/06/20 04:00 Urine RBC (Auto) 23.0 /HPF (0.0-6.0) 06/06/20 04:00 U Epithel Cells (Auto) 8.0 /HPF (0-13.0) 06/06/20 04:00 Urine Bacteria (Auto) 2+ /HPF (Negative) 06/06/20 04:00 Amorphous Crystals 1+ 06/06/20 04:00 Hyaline Casts 16 /LPF 06/06/20 04:00 Urine Mucus 2+ /HPF 06/06/20 04:00 Urine Yeast (Budding) 2+ /HPF 06/03/20 Unknown Urine Creatinine 33.3 mg/dL (0.1-20.0) H 07/06/20 13:20 Urine Sodium 21 mmol/L 07/06/20 13:20 Urine Total Protein 196 mg/dL (5-11.8) H 06/06/20 04:00 Nasal Screen MRSA (PCR) Negative (Negative) 06/29/20 08:30 Coronavirus (PCR) Positive (Negative) A 06/29/20 Unknown Blood Type A POSITIVE 07/05/20 02:30 Antibody Screen Negative 07/05/20 02:30 Crossmatch See Detail 07/05/20 02:30 - Diagnostic Impressions Diagnostic Impressions: Echocardiogram Limited Views 05/29/20 13:52 Transthoracic Echocardiogram Indication: Pulm Embolus BP: 169/76 HR: 85 Conclusions *Limited study for RV size post cardiopulmonar arrest. *RV is only slightly dilated, no significant difference from prior echo 05/13/2020. *Global left ventricular systolic function is at the lower limits of normal. *The estimated ejection fraction is 45-50%. *Mild to moderate concentric left ventricular hypertrophy is observed. *The left and right atria are both mild to moderately dilated. Findings Left Ventricle: The left ventricular chamber size is mildly dilated. Mild to moderate concentric left ventricular hypertrophy is observed. Global left ventricular systolic function is at the lower limits of normal. The estimated ejection fraction is 45-50%. Left Atrium: The left atrium is mild to moderately dilated. Right Ventricle: The right ventricle is slightly dilated. Right Atrium: The right atrium is mild to moderately dilated. Aortic Valve: The aortic valve leaflets are moderately thickened. Mitral Valve: There is mitral annular calcification. The mitral valve leaflets are moderately thickened. Tricuspid Valve: The tricuspid valve leaflets are mildly thickened. Pericardium: A trivial pericardial effusion is visualized. NDUM: 05/29/20 1808 Amended Report Transthoracic Echocardiogram Indication: Pulm Embolus BP: 169/76 HR: 85 Conclusions *Limited study for RV size post cardiopulmonary arrest. *RV is only slightly dilated, no significant difference from prior echo 05/13/2020. *Global left ventricular systolic function is at the lower limits of normal. *The estimated ejection fraction is 45-50%. *Mild to moderate concentric left ventricular hypertrophy is observed. *The left and right atria are both mild to moderately dilated. Findings Left Ventricle: The left ventricular chamber size is mildly dilated. Mild to moderate concentric left ventricular hypertrophy is observed. Global left ventricular systolic function is at the lower limits of normal. The estimated ejection fraction is 45-50%. Left Atrium: The left atrium is mild to moderately dilated. Right Ventricle: The right ventricle is slightly dilated. Right Atrium: The right atrium is mild to moderately dilated. Aortic Valve: The aortic valve leaflets are moderately thickened. Mitral Valve: There is mitral annular calcification. The mitral valve leaflets are moderately thickened. Tricuspid Valve: The tricuspid valve leaflets are mildly thickened. Pericardium: A trivial pericardial effusion is visualized. Helm/IV: Voiding Method Indwelling Catheter IV Catheter Type [Left Wrist] INT / Saline Lock IV Catheter Type [Left Upper Mid-line arm] IV Catheter Type [Right CVL Internal Jugular] IV Catheter Type [Right Hand] INT / Saline Lock IV Catheter Type [Right Wrist] Not found on patient IV Catheter Type [Left Hand] INT / Saline Lock IV Catheter Type [Left INT / Saline Lock Antecubital] IV Catheter Type [Right Peripheral IV Forearm] IV Catheter Type [Left Leg] Intra-osseous Active Medications - Current Medications Current Medications: Generic Name Dose Route Start Last Admin Trade Name Freq PRN Reason Stop Dose Admin Acetaminophen 650 mg 06/09/20 10:57 06/29/20 21:18 Tylenol FEEDTUBE 650 mg Q6H PRN Administration Fever >101 Amlodipine Besylate 10 mg 06/02/20 11:00 07/12/20 09:22 Amlodipine PO 10 mg DAILY NELSON Administration Lipase/Protease/Amylase 1 each 05/29/20 13:39 07/07/20 10:[address] 10,500 Unit FEEDTUBE 1 each PRN PRN Administration For Clogged Feeding Tube Carvedilol 12.5 mg 06/03/20 10:00 07/12/20 09:21 Coreg PO 12.5 mg BID NELSON Administration Clonidine HCl 0.2 mg 06/23/20 22:00 07/12/20 09:21 Catapres PO 0.2 mg Q12HR NELSON Administration Glycopyrrolate 2 mg 06/09/20 14:00 07/12/20 08:25 Glycopyrrolate PO 2 mg TID NELSON Administration Heparin Sodium (Porcine) 5,000 unit 06/30/20 14:00 07/12/20 06:34 Heparin SUB-Q 5,000 unit Q8HR NELSON Administration Hydralazine HCl 75 mg 07/08/20 10:00 07/12/20 06:33 Apresoline PO 75 mg Q8HR NELSON Administration Hydrophilic Ointment 1 applic 05/28/20 13:49 Vaseline Lip Therapy TP Q2HR PRN Dry Lips Insulin Glargine 10 units 06/08/20 22:00 07/11/20 21:03 Lantus SUB-Q 10 units QHS NELSON Administration Insulin Human Lispro 0 unit 05/29/20 18:00 07/12/20 06:36 Humalog SUB-Q Not Given Q6H [facility] Protocol Labetalol HCl 20 mg 06/03/20 09:00 07/11/20 12:59 Labetalol IV 20 mg Q4H PRN Administration HYPERTENSION Lansoprazole 30 mg 06/05/20 22:00 07/12/20 09:21 Prevacid Solutab FEEDTUBE 30 mg BID NELSON Administration Levetiracetam 500 mg 06/16/20 11:00 07/12/20 09:21 Keppra PO 500 mg BID NELSON Administration Modafinil 100 mg 07/02/20 20:00 07/12/20 09:21 Provigil PO 100 mg DAILY NELSON Administration Multi-Ingred Cream/Lotion/Oil/Oint 1 applic 05/28/20 13:49 Artificial Tears Ophth Oint OU Q4HR PRN Dry Eye(s) Ondansetron HCl 4 mg 06/02/20 09:00 06/09/20 16:48 Zofran IV 4 mg Q8H PRN Administration Nausea And Vomiting Senna 17.6 mg 06/03/20 10:00 07/12/20 09:22 Senokot FEEDTUBE Not Given BID NELSON Simple Syrup 15 ml 05/29/20 13:39 Simple Syrup FEEDTUBE PRN PRN Hypoglycemia Simple Syrup 30 ml 05/29/20 13:39 Simple Syrup FEEDTUBE PRN PRN Hypoglycemia Sodium Bicarbonate 325 mg 05/29/20 13:39 07/07/20 10:36 Sodium Bicarbonate FEEDTUBE 325 mg PRN PRN Administration For Clogged Feeding Tube Sodium Chloride 10 ml 05/28/20 22:00 07/12/20 09:22 Sodium Chloride Flush Syringe 10 Ml IV 10 ml BID NELSON Administration Sodium Chloride 10 ml 05/28/20 19:08 06/16/20 17:50 Sodium Chloride Flush Syringe 10 Ml IV 10 ml PRN PRN Administration LINE FLUSH Nutrition/Malnutrition Assess - Dietary Evaluation Nutrition/Malnutrition Findings: Nutrition Notes Start: 05/29/20 11:45 Freq: Status: Active Protocol: Document 07/09/20 11:47 [email or web address] (Rec: 07/09/20 11:53 [email or web address]) Co-Sign 07/09/20 11:47 Nutrition Notes Initial or Follow up Reassessment Current Diagnosis Acute Kidney Injury,Diabetes, Heart Failure,Respiratory Failure Other Pertinent Diagnosis COVID-19 (+), Pulmonary edema, dysphagia Current Diet Glucerna 1.2 at 55ml/hr Labs/Tests Na 136 BUN 84 Cr 2.8 BG 109 Mg 2.5 Pertinent Medications Reviewed Height 5 ft 6 in Weight 123 kg [place] Body Weight (kg) 59.09 BMI 43.7 Weight Status Morbidly Obese Subjective/Other Information F/U TF tolerance. Per RN, pt tolerating TF and running at goal rate. Percent of energy/protein needs met: 99%/53% Burn Absent Trauma Absent Current % PO Negligible Minimum of two criteria No physical signs of malnutrition Fluid Accumulation Mild (non-severe) #1 Nutrition Diagnosis Inadequate oral intake Diagnosis Progress(for reassessment Continues documentation) Is patient on ventilator? Yes Is Patient Ambulatory and/or Out of Bed No REE-([place]-St. Jeor-confined to bed) 2172.576 Kcal/Kg value to use for calculation 13 Approximate Energy Requirements Using 1599 kcal/Kg Calculation Used for Recommendations Kcal/kg Additional Notes Protein needs up to 148g (up to 2.5g/kg IBW) Fluid needs 1ml/kcal Nutrition Intervention Change Diet Order: Change TF Nutrition Support: Nepro at 40ml/hr Flush 150ml q4h Kcal 1,728 Protein (gm) 78 Fluid (mL) 697 Goal #1 TF tolerance Goal #2 TF to meet at least 65%-70% energy and 80% protein needs Anticipated Discharge Needs: Unable to determine at this time Follow-Up By: 07/20/20 Additional Comments F/U for TF tolerance
--- NOTE | 2020-07-12 13:18 | Progress Note ---
Assessment and Plan Cultures: Coronavirus PCR 05/28/2020: Positive 05/28/2020 blood culture: no growth 05/28/2020 tracheal aspirate: Usual respiratory bobo 05/28/2020 urine culture: No growth 06/03/2020 urine culture: No growth 06/09/2020 tracheal aspirate Klebsiella pneumoniae 06/28/2020 sputum culture positive for Klebsiella 06/28/2020 blood cultures no growth today 06/29/2020 SARS COV2 PCR positive A/P: 64-year-old female with hypertension, diastolic CHF, pulmonary hypertension, diabetes, obesity hypoventilation syndrome, recent COVID pneumonia, was admitted to the emergency room after she called EMS due to difficulty breathing. On the way to the hospital, patient developed cardiac arrest and was treated as per ACLS protocol: #Cardiac arrest on 07/01/2020. #Sepsis on 06/27/2020: Resolved. After asystolic cardiac arrest on 06/26/2028. #Bilateral pneumonia: Secondary to COVID-19. Completed 5 days of IV Remdesivir 06/02/2020, completed steroids. ?Healthcare associated pneumonia, repeat sputum Klebsiella. Chest x-ray worsening infiltrates. Completed abx. #Acute hypoxic respiratory failure: On mechanical ventilation. Minimal vent settings. #HF: EF 45-50% #Mild LFT elevation: likely from COVID-19. #Severe constipation: Status post manual disimpaction. #Encephalopathy: ? Post cardiac arrest. Recs: -continue supportive care, awaits trach/PEG Mallory Wright MD, FACP [facility] ([facility]) C: [phone] O: [phone] F: [phone] Subjective Date of service: 07/12/20 Principal diagnosis: Ac hypoxemic resp failure; COVID-19; pneumonia; CHF; Pulm HTN; OHS; DM II Interval history: Remains intubated, on the vent, minimal settings. No fever. Objective - Exam Narrative Exam: Physical Exam (reviewed in chart due to PPE conservation) Constitutional: intubated, sedated, on the vent Head, Ears, Nose: normocephalic, atraumatic Eyes: limited due to PPE conservation strategy Neck: intubated Oral: intubated Cardiovascular: limited due to PPE conservation strategy Respiratory: limited due to PPE conservation strategy GI: limited due to PPE conservation strategy Musculoskeletal: limited due to PPE conservation strategy Skin: limited due to PPE conservation strategy Hem/Lymphatic: limited due to PPE conservation strategy Psych: no agitation Neurological: sedated, intubated, on the vent, exam limited - Constitutional Vitals: Vital Signs Temp Pulse Resp BP Pulse Ox 98.4 F 73 17 157/66 98 07/12/20 11:44 07/12/20 12:40 07/12/20 12:40 07/12/20 12:40 07/12/20 12:40 Temperature -Last 24 Hours Temperature 98.4 F Temperature 97.7 F Temperature 98.6 F Temperature 99.0 F Temperature 98.9 F Temperature 98.6 F - Labs CBC & Chem 7: 07/12/20 05:14 07/12/20 05:14 Labs: Abnormal lab results 07/11/20 07/11/20 07/12/20 Range/Units 17:28 23:49 05:14 RBC 2.78 L (3.65-5.03) M/mm3 Hgb 8.5 L (10.1-14.3) gm/dl Hct 25.3 L (30.3-42.9) % RDW 16.7 H (13.2-15.2) % Seg Neuts % (Manual) 81.0 H (40.0-70.0) % Lymphocytes % (Manual) 6.0 L (13.4-35.0) % Monocytes % (Manual) 8.0 H (0.0-7.3) % Lymphocytes # (Manual) 0.6 L (1.2-5.4) K/mm3 BUN (7-17) mg/dL Creatinine (0.6-1.2) mg/dL Glucose (65-100) mg/dL POC Glucose 175 H 114 H (70-105) 07/12/20 07/12/20 07/12/20 Range/Units 05:14 05:44 11:32 RBC (3.65-5.03) M/mm3 Hgb (10.1-14.3) gm/dl Hct (30.3-42.9) % RDW (13.2-15.2) % Seg Neuts % (Manual) (40.0-70.0) % Lymphocytes % (Manual) (13.4-35.0) % Monocytes % (Manual) (0.0-7.3) % Lymphocytes # (Manual) (1.2-5.4) K/mm3 BUN 79 H (7-17) mg/dL Creatinine 2.2 H (0.6-1.2) mg/dL Glucose 131 H (65-100) mg/dL POC Glucose 116 H 132 H (70-105)
--- NOTE | 2020-07-12 15:50 | Progress Note ---
Assessment and Plan Acute hypoxemic respiratory failure on MVS Coronavirus-19 infection. Bilateral pulmonary infiltrates, bilateral pneumonia plus likely element of Pulmonary edema. Bilateral pulmonary edema. Bilateral pleural effusions. History of congestive heart failure. Morbid obesity. History of pulmonary hypertension. History of hypertension. Diabetes. Obesity hypoventilation syndrome. Elevated serum inflammatory markers to include D-dimers and LDH levels. Hyperkalemia at presentation. Metabolic acidosis. Oropharyngeal dysphagia. (AMS remains rate limiting factor to safe extubation; she will need a tracheo stomy) - surgery evaluation ongoping for trach +/- PEG - continue azotemia management per nephrology rec's - enteral nutrition at goal rate as tolerated - continue care as below otherwise while following mental status; - GI evaluation ongoing - continue Modafinil re: lethargy / somnolence - continue daytime PSV trials as tolerated - Daily SAT and SBT assessment as tolerated - continue to wean supplemental oxygen for target O2 sat's > 90% acutely - VAP bundle addressed - continue lung protective strategies - continue bronchodilators with pulmonary hygiene per RT - wean per pulmonary driven protocols otherwise - continue accuchecks resumed with glycemic control per SSI (While critically ill target blood glucose of 140-180 mg/dL; avoid hypoglycemia) - sedation prn for target RASS 0 to -1 - continue to avoid benzodiazepine's, reduce the possibility of delirium - AB's per ID rec's - prn analgesia per CPOT score - Maintenance of sleep-wake cycle, avoid delirium - continue enteral nutritional support at goal rate as tolerated - G.I. & VTE prophylaxis with heparin & famotidine - PT/OT/ROM exercises - continue mobility protocols for pressure ulcer prophylaxis - Monitor hemodynamics closely - continue other care per attending / other consultants - discharge planning ongoing concurrently (LTAC evaluation is appropriate) .... Re-evaluate in am & prn CONDITION: CRITICAL PROGNOSIS: GUARDED CODE STATUS: FULL CODE The high probability of a clinically significant, sudden or life-threatening deterioration of the [respiratory, cardiovascular, GI & neurologic] system(s) required my full and direct attention, intervention and personal management. The aggregate critical care time was [32] minutes without overlap. Time includes spent on; [x] Data Review and interpretation [x] Patient assessment and monitoring of vital signs [x] Documentation [x] Medication orders and management Subjective Date of service: 07/12/20 Principal diagnosis: Ac hypoxemic resp failure; COVID-19; pneumonia; CHF; Pulm HTN; OHS; DM II Interval history: Patient is seen today for: Ac hypoxemic resp failure; Coronavirus-19 infection; pneumonia; Pulmonary edema; Bilateral pleural effusions; CHF; Morbid obesity; pulmonary hypertension; OHS; DM II Seen and examined at bedside; 24hour events reviewed; nursing and respiratory care staff consulted; no adverse overnight events reported to me; resting peacefully in bed; remains on MVS; AMS is persistent Objective Vital Signs - 12hr 07/12/20 07/12/20 07/12/20 04:00 04:30 05:00 Temperature 98.6 F Pulse Rate 76 73 75 Pulse Rate [ Right Dorsalis Pedis] Respiratory 16 12 13 Rate Blood Pressure 162/61 168/61 166/61 O2 Sat by Pulse 99 99 99 Oximetry 07/12/20 07/12/20 07/12/20 05:30 05:34 06:00 Temperature Pulse Rate 76 73 77 Pulse Rate [ Right Dorsalis Pedis] Respiratory 13 11 L Rate Blood Pressure 168/66 168/66 163/63 O2 Sat by Pulse 99 99 99 Oximetry 07/12/20 07/12/20 07/12/20 06:30 06:33 07:00 Temperature Pulse Rate 78 79 78 Pulse Rate [ Right Dorsalis Pedis] Respiratory 17 15 Rate Blood Pressure 163/63 145/67 145/67 O2 Sat by Pulse 99 99 Oximetry 07/12/20 07/12/20 07/12/20 07:30 08:00 08:30 Temperature 97.7 F Pulse Rate 77 79 76 Pulse Rate [ 79 Right Dorsalis Pedis] Respiratory 13 14 14 Rate Blood Pressure 148/64 177/67 175/63 O2 Sat by Pulse 99 99 99 Oximetry 07/12/20 07/12/20 07/12/20 08:36 08:39 09:00 Temperature Pulse Rate 78 80 90 Pulse Rate [ Right Dorsalis Pedis] Respiratory 15 22 Rate Blood Pressure 178/65 178/65 193/78 O2 Sat by Pulse 99 98 96 Oximetry 07/12/20 07/12/20 07/12/20 09:21 09:22 09:30 Temperature Pulse Rate 86 86 87 Pulse Rate [ Right Dorsalis Pedis] Respiratory 21 Rate Blood Pressure 193/78 193/78 155/61 O2 Sat by Pulse 97 Oximetry 07/12/20 07/12/20 07/12/20 10:00 10:30 11:00 Temperature Pulse Rate 76 71 69 Pulse Rate [ Right Dorsalis Pedis] Respiratory 17 16 18 Rate Blood Pressure 155/61 134/48 136/52 O2 Sat by Pulse 98 98 98 Oximetry 07/12/20 07/12/20 07/12/20 11:30 11:44 12:00 Temperature 98.4 F Pulse Rate 78 80 Pulse Rate [ 80 Right Dorsalis Pedis] Respiratory 19 20 Rate Blood Pressure 169/69 176/67 O2 Sat by Pulse 98 98 Oximetry 07/12/20 07/12/20 07/12/20 12:06 12:30 12:40 Temperature Pulse Rate 79 73 73 Pulse Rate [ Right Dorsalis Pedis] Respiratory 17 17 Rate Blood Pressure 176/67 157/66 157/66 O2 Sat by Pulse 98 98 Oximetry 07/12/20 07/12/20 07/12/20 13:00 13:30 13:40 Temperature Pulse Rate 73 73 75 Pulse Rate [ Right Dorsalis Pedis] Respiratory 16 15 19 Rate Blood Pressure 145/55 145/58 145/58 O2 Sat by Pulse 97 98 98 Oximetry 07/12/20 07/12/20 07/12/20 13:50 14:00 14:05 Temperature Pulse Rate 76 74 74 Pulse Rate [ Right Dorsalis Pedis] Respiratory 15 15 Rate Blood Pressure 145/58 155/63 155/63 O2 Sat by Pulse 98 98 Oximetry 07/12/20 14:30 Temperature Pulse Rate 77 Pulse Rate [ Right Dorsalis Pedis] Respiratory 37 H Rate Blood Pressure 160/68 O2 Sat by Pulse 98 Oximetry Constitutional: appears uncomfortable, other (elderly looking obese female on HFNC with mildly increased respiratory effort at rest on MVS) Eyes: non-icteric ENT: oropharynx dry, other (ETT 23-24 cm AYAN) Neck: supple, no lymphadenopathy, no JVD, other (large neck circumference) Effort: mildly labored Ascultation: Bilateral: diminished breath sounds, rhonchi (scant) Percussion: Bilateral: not dull Cardiovascular: regular rate and rhythm, other (S1,S2) Gastrointestinal: normoactive bowel sounds, soft, non-tender, non-distended Integumentary: normal Extremities: no cyanosis, pink and warm, pulses normal, no ischemia or petechiae, edema (1+ bipedal) Neurologic: pupils equal and round, unable to assess, other (lethargic to obtunded) Psychiatric: other (unable to assess re: AMS) CBC and BMP: 07/13/20 04:53 07/13/20 04:53 ABG, PT/INR, D-dimer: ABG ABG pH 7.32 pH Units (7.350-7.450) L 07/05/20 13:05 POC ABG pCO2 35.8 mmHg (32.0-48.0) 07/01/20 05:02 ABG pCO2 47.0 mm Hg 07/05/20 13:05 POC ABG pO2 90.8 mmHg (83-108) 07/01/20 05:02 ABG pO2 78.3 mm Hg (80.0-90.0) L 07/05/20 13:05 POC ABG HCO3 22.1 07/01/20 05:02 ABG O2 Saturation 96.1 % (95.0-99.0) 07/05/20 13:05 PT/INR, D-dimer PT 14.2 Sec. (12.2-14.9) 05/29/20 15:10 INR 1.08 (0.87-1.13) 05/29/20 15:10 D-Dimer 2310.15 ng/mlDDU (0-234) H 06/29/20 14:45 Abnormal lab findings: Abnormal Labs 05/28/20 05/28/20 05/28/20 13:29 13:47 13:47 WBC RBC Hgb Hct MCHC RDW 15.3 H Lymph % (Auto) [place] % (Auto) Eos % (Auto) Lymph # [place] # Lymph # (Auto) [place] # (Auto) Seg Neutrophils % Seg Neuts % (Manual) Lymphocytes % (Manual) Seg Neutrophils # Seg Neutrophils # Man Lymphocytes # (Manual) Monocytes % (Manual) Eosinophils % (Manual) Monocytes # (Manual) Eosinophils # (Manual) D-Dimer Heparin Anti-Xa Level ABG pH POC ABG pCO2 POC ABG pO2 ABG pO2 ABG HCO3 ABG O2 Saturation ABG Base Excess ABG Hemoglobin ABG Oxyhemoglobin VBG pH Oxyhemoglobin Sodium Potassium 6.6 H* Chloride 109.2 H Carbon Dioxide 17 L BUN 29 H Creatinine 1.3 H Glucose 265 H POC Glucose 248 H Lactic Acid Calcium 8.1 L Ferritin AST 63 H Alkaline Phosphatase Magnesium Lactate Dehydrogenase Total Creatine Kinase 301 H CK-MB (CK-2) 4.3 H C-Reactive Protein Total Protein 5.4 L Albumin 2.6 L Troponin T HDL Cholesterol Urine WBC (Auto) Urine Creatinine Urine Total Protein Coronavirus (PCR) Crossmatch 05/28/20 05/28/20 05/28/20 13:47 13:47 14:46 WBC RBC Hgb Hct MCHC RDW Lymph % (Auto) [place] % (Auto) Eos % (Auto) Lymph # [place] # Lymph # (Auto) [place] # (Auto) Seg Neutrophils % Seg Neuts % (Manual) Lymphocytes % (Manual) Seg Neutrophils # Seg Neutrophils # Man Lymphocytes # (Manual) Monocytes % (Manual) Eosinophils % (Manual) Monocytes # (Manual) Eosinophils # (Manual) D-Dimer Heparin Anti-Xa Level ABG pH POC ABG pCO2 POC ABG pO2 ABG pO2 ABG HCO3 ABG O2 Saturation ABG Base Excess ABG Hemoglobin ABG Oxyhemoglobin VBG pH 7.152 L* Oxyhemoglobin Sodium Potassium 7.2 H* Chloride Carbon Dioxide BUN Creatinine Glucose POC Glucose Lactic Acid 3.40 H* Calcium Ferritin AST Alkaline Phosphatase Magnesium Lactate Dehydrogenase Total Creatine Kinase CK-MB (CK-2) C-Reactive Protein Total Protein Albumin Troponin T HDL Cholesterol Urine WBC (Auto) Urine Creatinine Urine Total Protein Coronavirus (PCR) Crossmatch 05/28/20 05/28/20 05/28/20 15:33 15:33 15:51 WBC RBC Hgb Hct MCHC RDW Lymph % (Auto) [place] % (Auto) Eos % (Auto) Lymph # [place] # Lymph # (Auto) [place] # (Auto) Seg Neutrophils % Seg Neuts % (Manual) Lymphocytes % (Manual) Seg Neutrophils # Seg Neutrophils # Man Lymphocytes # (Manual) Monocytes % (Manual) Eosinophils % (Manual) Monocytes # (Manual) Eosinophils # (Manual) D-Dimer 8780.43 H Heparin Anti-Xa Level ABG pH 7.284 L POC ABG pCO2 POC ABG pO2 ABG pO2 273.0 H ABG HCO3 ABG O2 Saturation 99.4 H ABG Base Excess -6.1 L ABG Hemoglobin 17.2 H ABG Oxyhemoglobin VBG pH Oxyhemoglobin Sodium Potassium Chloride Carbon Dioxide BUN Creatinine Glucose 152 H POC Glucose Lactic Acid Calcium Ferritin AST Alkaline Phosphatase Magnesium Lactate Dehydrogenase 365 H Total Creatine Kinase CK-MB (CK-2) C-Reactive Protein Total Protein Albumin Troponin T HDL Cholesterol Urine WBC (Auto) Urine Creatinine Urine Total Protein Coronavirus (PCR) Crossmatch 05/28/20 05/28/20 05/28/20 16:30 20:41 23:20 WBC RBC Hgb Hct MCHC RDW Lymph % (Auto) [place] % (Auto) Eos % (Auto) Lymph # [place] # Lymph # (Auto) [place] # (Auto) Seg Neutrophils % Seg Neuts % (Manual) Lymphocytes % (Manual) Seg Neutrophils # Seg Neutrophils # Man Lymphocytes # (Manual) Monocytes % (Manual) Eosinophils % (Manual) Monocytes # (Manual) Eosinophils # (Manual) D-Dimer Heparin Anti-Xa Level ABG pH POC ABG pCO2 POC ABG pO2 ABG pO2 ABG HCO3 ABG O2 Saturation ABG Base Excess ABG Hemoglobin ABG Oxyhemoglobin VBG pH Oxyhemoglobin Sodium Potassium Chloride Carbon Dioxide BUN Creatinine Glucose POC Glucose 225 H 224 H Lactic Acid Calcium Ferritin AST Alkaline Phosphatase Magnesium Lactate Dehydrogenase Total Creatine Kinase CK-MB (CK-2) C-Reactive Protein Total Protein Albumin Troponin T HDL Cholesterol Urine WBC (Auto) 17.0 H Urine Creatinine Urine Total Protein Coronavirus (PCR) Crossmatch 05/28/20 05/29/20 05/29/20 Unknown 04:35 04:43 WBC RBC 3.48 L Hgb 9.8 L Hct 29.4 L MCHC RDW 16.0 H Lymph % (Auto) 7.4 L [place] % (Auto) Eos % (Auto) Lymph # 0.7 L [place] # Lymph # (Auto) [place] # (Auto) Seg Neutrophils % 89.1 H Seg Neuts % (Manual) Lymphocytes % (Manual) Seg Neutrophils # 8.1 H Seg Neutrophils # Man Lymphocytes # (Manual) Monocytes % (Manual) Eosinophils % (Manual) Monocytes # (Manual) Eosinophils # (Manual) D-Dimer Heparin Anti-Xa Level ABG pH POC ABG pCO2 POC ABG pO2 ABG pO2 ABG HCO3 19.3 L ABG O2 Saturation ABG Base Excess -4.5 L ABG Hemoglobin 9.7 L ABG Oxyhemoglobin VBG pH Oxyhemoglobin Sodium Potassium Chloride Carbon Dioxide BUN Creatinine Glucose POC Glucose Lactic Acid Calcium Ferritin AST Alkaline Phosphatase Magnesium Lactate Dehydrogenase Total Creatine Kinase CK-MB (CK-2) C-Reactive Protein Total Protein Albumin Troponin T HDL Cholesterol Urine WBC (Auto) Urine Creatinine Urine Total Protein Coronavirus (PCR) Positive A Crossmatch 05/29/20 05/29/20 05/29/20 04:43 15:10 17:17 WBC RBC Hgb 9.3 L Hct 28.7 L MCHC RDW Lymph % (Auto) [place] % (Auto) Eos % (Auto) Lymph # [place] # Lymph # (Auto) [place] # (Auto) Seg Neutrophils % Seg Neuts % (Manual) Lymphocytes % (Manual) Seg Neutrophils # Seg Neutrophils # Man Lymphocytes # (Manual) Monocytes % (Manual) Eosinophils % (Manual) Monocytes # (Manual) Eosinophils # (Manual) D-Dimer Heparin Anti-Xa Level ABG pH POC ABG pCO2 POC ABG pO2 ABG pO2 ABG HCO3 ABG O2 Saturation ABG Base Excess ABG Hemoglobin ABG Oxyhemoglobin VBG pH Oxyhemoglobin Sodium Potassium Chloride 110.2 H Carbon Dioxide 18 L BUN 32 H Creatinine 1.4 H Glucose 180 H POC Glucose 147 H Lactic Acid Calcium Ferritin AST Alkaline Phosphatase Magnesium Lactate Dehydrogenase Total Creatine Kinase CK-MB (CK-2) C-Reactive Protein Total Protein Albumin Troponin T HDL Cholesterol Urine WBC (Auto) Urine Creatinine Urine Total Protein Coronavirus (PCR) Crossmatch 05/30/20 05/30/20 05/30/20 00:08 00:12 04:15 WBC RBC Hgb Hct MCHC RDW Lymph % (Auto) [place] % (Auto) Eos % (Auto) Lymph # [place] # Lymph # (Auto) [place] # (Auto) Seg Neutrophils % Seg Neuts % (Manual) Lymphocytes % (Manual) Seg Neutrophils # Seg Neutrophils # Man Lymphocytes # (Manual) Monocytes % (Manual) Eosinophils % (Manual) Monocytes # (Manual) Eosinophils # (Manual) D-Dimer Heparin Anti-Xa Level 0.71 H ABG pH 7.460 H POC ABG pCO2 POC ABG pO2 ABG pO2 106.0 H ABG HCO3 18.9 L ABG O2 Saturation ABG Base Excess -4.4 L ABG Hemoglobin 6.8 L ABG Oxyhemoglobin VBG pH Oxyhemoglobin Sodium Potassium Chloride Carbon Dioxide BUN Creatinine Glucose POC Glucose 195 H Lactic Acid Calcium Ferritin AST Alkaline Phosphatase Magnesium Lactate Dehydrogenase Total Creatine Kinase CK-MB (CK-2) C-Reactive Protein Total Protein Albumin Troponin T HDL Cholesterol Urine WBC (Auto) Urine Creatinine Urine Total Protein Coronavirus (PCR) Crossmatch 05/30/20 05/30/20 05/30/20 06:07 08:37 12:33 WBC RBC Hgb Hct MCHC RDW Lymph % (Auto) [place] % (Auto) Eos % (Auto) Lymph # [place] # Lymph # (Auto) [place] # (Auto) Seg Neutrophils % Seg Neuts % (Manual) Lymphocytes % (Manual) Seg Neutrophils # Seg Neutrophils # Man Lymphocytes # (Manual) Monocytes % (Manual) Eosinophils % (Manual) Monocytes # (Manual) Eosinophils # (Manual) D-Dimer Heparin Anti-Xa Level 0.85 H ABG pH POC ABG pCO2 POC ABG pO2 ABG pO2 ABG HCO3 ABG O2 Saturation ABG Base Excess ABG Hemoglobin ABG Oxyhemoglobin VBG pH Oxyhemoglobin Sodium Potassium Chloride Carbon Dioxide BUN Creatinine Glucose POC Glucose 182 H 187 H Lactic Acid Calcium Ferritin AST Alkaline Phosphatase Magnesium Lactate Dehydrogenase Total Creatine Kinase CK-MB (CK-2) C-Reactive Protein Total Protein Albumin Troponin T HDL Cholesterol Urine WBC (Auto) Urine Creatinine Urine Total Protein Coronavirus (PCR) Crossmatch 05/30/20 05/30/20 05/30/20 15:58 17:57 23:36 WBC RBC Hgb Hct MCHC RDW Lymph % (Auto) [place] % (Auto) Eos % (Auto) Lymph # [place] # Lymph # (Auto) [place] # (Auto) Seg Neutrophils % Seg Neuts % (Manual) Lymphocytes % (Manual) Seg Neutrophils # Seg Neutrophils # Man Lymphocytes # (Manual) Monocytes % (Manual) Eosinophils % (Manual) Monocytes # (Manual) Eosinophils # (Manual) D-Dimer Heparin Anti-Xa Level 1.03 H ABG pH POC ABG pCO2 POC ABG pO2 ABG pO2 ABG HCO3 ABG O2 Saturation ABG Base Excess ABG Hemoglobin ABG Oxyhemoglobin VBG pH Oxyhemoglobin Sodium Potassium Chloride Carbon Dioxide BUN Creatinine Glucose POC Glucose 208 H 185 H Lactic Acid Calcium Ferritin AST Alkaline Phosphatase Magnesium Lactate Dehydrogenase Total Creatine Kinase CK-MB (CK-2) C-Reactive Protein Total Protein Albumin Troponin T HDL Cholesterol Urine WBC (Auto) Urine Creatinine Urine Total Protein Coronavirus (PCR) Crossmatch 05/31/20 05/31/20 05/31/20 02:16 03:55 06:16 WBC RBC Hgb 9.2 L Hct 27.5 L MCHC RDW Lymph % (Auto) [place] % (Auto) Eos % (Auto) Lymph # [place] # Lymph # (Auto) [place] # (Auto) Seg Neutrophils % Seg Neuts % (Manual) Lymphocytes % (Manual) Seg Neutrophils # Seg Neutrophils # Man Lymphocytes # (Manual) Monocytes % (Manual) Eosinophils % (Manual) Monocytes # (Manual) Eosinophils # (Manual) D-Dimer Heparin Anti-Xa Level ABG pH POC ABG pCO2 POC ABG pO2 ABG pO2 94.7 H ABG HCO3 18.6 L ABG O2 Saturation ABG Base Excess -5.5 L ABG Hemoglobin 7.9 L ABG Oxyhemoglobin VBG pH Oxyhemoglobin Sodium Potassium Chloride Carbon Dioxide BUN Creatinine Glucose POC Glucose 160 H Lactic Acid Calcium Ferritin AST Alkaline Phosphatase Magnesium Lactate Dehydrogenase Total Creatine Kinase CK-MB (CK-2) C-Reactive Protein Total Protein Albumin Troponin T HDL Cholesterol Urine WBC (Auto) Urine Creatinine Urine Total Protein Coronavirus (PCR) Crossmatch 05/31/20 05/31/20 05/31/20 12:20 13:03 18:13 WBC RBC Hgb Hct MCHC RDW Lymph % (Auto) [place] % (Auto) Eos % (Auto) Lymph # [place] # Lymph # (Auto) [place] # (Auto) Seg Neutrophils % Seg Neuts % (Manual) Lymphocytes % (Manual) Seg Neutrophils # Seg Neutrophils # Man Lymphocytes # (Manual) Monocytes % (Manual) Eosinophils % (Manual) Monocytes # (Manual) Eosinophils # (Manual) D-Dimer Heparin Anti-Xa Level ABG pH POC ABG pCO2 POC ABG pO2 ABG pO2 ABG HCO3 ABG O2 Saturation ABG Base Excess ABG Hemoglobin ABG Oxyhemoglobin VBG pH Oxyhemoglobin Sodium Potassium Chloride Carbon Dioxide 18 L BUN 48 H Creatinine 1.6 H Glucose 115 H POC Glucose 128 H 159 H Lactic Acid Calcium 8.3 L Ferritin AST Alkaline Phosphatase Magnesium Lactate Dehydrogenase Total Creatine Kinase CK-MB (CK-2) C-Reactive Protein Total Protein 5.4 L Albumin 2.4 L Troponin T HDL Cholesterol Urine WBC (Auto) Urine Creatinine Urine Total Protein Coronavirus (PCR) Crossmatch 05/31/20 06/01/20 06/01/20 23:51 04:00 05:48 WBC RBC Hgb Hct MCHC RDW Lymph % (Auto) [place] % (Auto) Eos % (Auto) Lymph # [place] # Lymph # (Auto) [place] # (Auto) Seg Neutrophils % Seg Neuts % (Manual) Lymphocytes % (Manual) Seg Neutrophils # Seg Neutrophils # Man Lymphocytes # (Manual) Monocytes % (Manual) Eosinophils % (Manual) Monocytes # (Manual) Eosinophils # (Manual) D-Dimer Heparin Anti-Xa Level ABG pH POC ABG pCO2 POC ABG pO2 ABG pO2 109.8 H ABG HCO3 18.8 L ABG O2 Saturation ABG Base Excess -5.9 L ABG Hemoglobin 7.8 L ABG Oxyhemoglobin VBG pH Oxyhemoglobin Sodium Potassium Chloride Carbon Dioxide BUN Creatinine Glucose POC Glucose 171 H 133 H Lactic Acid Calcium Ferritin AST Alkaline Phosphatase Magnesium Lactate Dehydrogenase Total Creatine Kinase CK-MB (CK-2) C-Reactive Protein Total Protein Albumin Troponin T HDL Cholesterol Urine WBC (Auto) Urine Creatinine Urine Total Protein Coronavirus (PCR) Crossmatch 06/01/20 06/01/20 06/02/20 12:28 17:29 00:08 WBC RBC Hgb Hct MCHC RDW Lymph % (Auto) [place] % (Auto) Eos % (Auto) Lymph # [place] # Lymph # (Auto) [place] # (Auto) Seg Neutrophils % Seg Neuts % (Manual) Lymphocytes % (Manual) Seg Neutrophils # Seg Neutrophils # Man Lymphocytes # (Manual) Monocytes % (Manual) Eosinophils % (Manual) Monocytes # (Manual) Eosinophils # (Manual) D-Dimer Heparin Anti-Xa Level ABG pH POC ABG pCO2 POC ABG pO2 ABG pO2 ABG HCO3 ABG O2 Saturation ABG Base Excess ABG Hemoglobin ABG Oxyhemoglobin VBG pH Oxyhemoglobin Sodium Potassium Chloride Carbon Dioxide BUN Creatinine Glucose POC Glucose 199 H 209 H 162 H Lactic Acid Calcium Ferritin AST Alkaline Phosphatase Magnesium Lactate Dehydrogenase Total Creatine Kinase CK-MB (CK-2) C-Reactive Protein Total Protein Albumin Troponin T HDL Cholesterol Urine WBC (Auto) Urine Creatinine Urine Total Protein Coronavirus (PCR) Crossmatch 06/02/20 06/02/20 06/02/20 04:20 04:20 04:44 WBC RBC Hgb 10.0 L Hct MCHC RDW Lymph % (Auto) [place] % (Auto) Eos % (Auto) Lymph # [place] # Lymph # (Auto) [place] # (Auto) Seg Neutrophils % Seg Neuts % (Manual) Lymphocytes % (Manual) Seg Neutrophils # Seg Neutrophils # Man Lymphocytes # (Manual) Monocytes % (Manual) Eosinophils % (Manual) Monocytes # (Manual) Eosinophils # (Manual) D-Dimer Heparin Anti-Xa Level 0.10 L ABG pH POC ABG pCO2 POC ABG pO2 ABG pO2 150.6 H ABG HCO3 ABG O2 Saturation ABG Base Excess -4.1 L ABG Hemoglobin 11.8 L ABG Oxyhemoglobin VBG pH Oxyhemoglobin Sodium Potassium Chloride Carbon Dioxide BUN Creatinine Glucose POC Glucose Lactic Acid Calcium Ferritin AST Alkaline Phosphatase Magnesium Lactate Dehydrogenase Total Creatine Kinase CK-MB (CK-2) C-Reactive Protein Total Protein Albumin Troponin T HDL Cholesterol Urine WBC (Auto) Urine Creatinine Urine Total Protein Coronavirus (PCR) Crossmatch 06/02/20 06/02/20 06/02/20 05:53 12:04 13:49 WBC RBC Hgb Hct MCHC RDW Lymph % (Auto) [place] % (Auto) Eos % (Auto) Lymph # [place] # Lymph # (Auto) [place] # (Auto) Seg Neutrophils % Seg Neuts % (Manual) Lymphocytes % (Manual) Seg Neutrophils # Seg Neutrophils # Man Lymphocytes # (Manual) Monocytes % (Manual) Eosinophils % (Manual) Monocytes # (Manual) Eosinophils # (Manual) D-Dimer Heparin Anti-Xa Level 0.28 L ABG pH POC ABG pCO2 POC ABG pO2 ABG pO2 ABG HCO3 ABG O2 Saturation ABG Base Excess ABG Hemoglobin ABG Oxyhemoglobin VBG pH Oxyhemoglobin Sodium Potassium Chloride Carbon Dioxide BUN Creatinine Glucose POC Glucose 149 H 220 H Lactic Acid Calcium Ferritin AST Alkaline Phosphatase Magnesium Lactate Dehydrogenase Total Creatine Kinase CK-MB (CK-2) C-Reactive Protein Total Protein Albumin Troponin T HDL Cholesterol Urine WBC (Auto) Urine Creatinine Urine Total Protein Coronavirus (PCR) Crossmatch 06/02/20 06/02/20 06/03/20 13:49 18:31 00:42 WBC RBC Hgb Hct MCHC RDW Lymph % (Auto) [place] % (Auto) Eos % (Auto) Lymph # [place] # Lymph # (Auto) [place] # (Auto) Seg Neutrophils % Seg Neuts % (Manual) Lymphocytes % (Manual) Seg Neutrophils # Seg Neutrophils # Man Lymphocytes # (Manual) Monocytes % (Manual) Eosinophils % (Manual) Monocytes # (Manual) Eosinophils # (Manual) D-Dimer 769.68 H Heparin Anti-Xa Level ABG pH POC ABG pCO2 POC ABG pO2 ABG pO2 ABG HCO3 ABG O2 Saturation ABG Base Excess ABG Hemoglobin ABG Oxyhemoglobin VBG pH Oxyhemoglobin Sodium Potassium Chloride Carbon Dioxide BUN Creatinine Glucose POC Glucose 225 H 212 H Lactic Acid Calcium Ferritin AST Alkaline Phosphatase Magnesium Lactate Dehydrogenase Total Creatine Kinase CK-MB (CK-2) C-Reactive Protein Total Protein Albumin Troponin T HDL Cholesterol Urine WBC (Auto) Urine Creatinine Urine Total Protein Coronavirus (PCR) Crossmatch 06/03/20 06/03/20 06/03/20 05:16 05:16 05:25 WBC 11.4 H RBC Hgb Hct MCHC RDW 16.4 H Lymph % (Auto) [place] % (Auto) Eos % (Auto) Lymph # [place] # Lymph # (Auto) [place] # (Auto) Seg Neutrophils % Seg Neuts % (Manual) Lymphocytes % (Manual) Seg Neutrophils # Seg Neutrophils # Man Lymphocytes # (Manual) Monocytes % (Manual) Eosinophils % (Manual) Monocytes # (Manual) Eosinophils # (Manual) D-Dimer Heparin Anti-Xa Level ABG pH POC ABG pCO2 POC ABG pO2 ABG pO2 160.9 H ABG HCO3 19.4 L ABG O2 Saturation ABG Base Excess -4.9 L ABG Hemoglobin 7.0 L ABG Oxyhemoglobin VBG pH Oxyhemoglobin Sodium Potassium Chloride Carbon Dioxide 18 L BUN 65 H Creatinine 2.0 H Glucose 175 H POC Glucose Lactic Acid Calcium 8.0 L Ferritin AST Alkaline Phosphatase Magnesium Lactate Dehydrogenase Total Creatine Kinase CK-MB (CK-2) C-Reactive Protein Total Protein 5.5 L Albumin 2.2 L Troponin T HDL Cholesterol Urine WBC (Auto) Urine Creatinine Urine Total Protein Coronavirus (PCR) Crossmatch 06/03/20 06/03/20 06/03/20 06:07 11:58 18:24 WBC RBC Hgb Hct MCHC RDW Lymph % (Auto) [place] % (Auto) Eos % (Auto) Lymph # [place] # Lymph # (Auto) [place] # (Auto) Seg Neutrophils % Seg Neuts % (Manual) Lymphocytes % (Manual) Seg Neutrophils # Seg Neutrophils # Man Lymphocytes # (Manual) Monocytes % (Manual) Eosinophils % (Manual) Monocytes # (Manual) Eosinophils # (Manual) D-Dimer Heparin Anti-Xa Level ABG pH POC ABG pCO2 POC ABG pO2 ABG pO2 ABG HCO3 ABG O2 Saturation ABG Base Excess ABG Hemoglobin ABG Oxyhemoglobin VBG pH Oxyhemoglobin Sodium Potassium Chloride Carbon Dioxide BUN Creatinine Glucose POC Glucose 177 H 163 H 211 H Lactic Acid Calcium Ferritin AST Alkaline Phosphatase Magnesium Lactate Dehydrogenase Total Creatine Kinase CK-MB (CK-2) C-Reactive Protein Total Protein Albumin Troponin T HDL Cholesterol Urine WBC (Auto) Urine Creatinine Urine Total Protein Coronavirus (PCR) Crossmatch 06/03/20 06/03/20 06/04/20 21:50 Unknown 00:26 WBC RBC Hgb Hct MCHC RDW Lymph % (Auto) [place] % (Auto) Eos % (Auto) Lymph # [place] # Lymph # (Auto) [place] # (Auto) Seg Neutrophils % Seg Neuts % (Manual) Lymphocytes % (Manual) Seg Neutrophils # Seg Neutrophils # Man Lymphocytes # (Manual) Monocytes % (Manual) Eosinophils % (Manual) Monocytes # (Manual) Eosinophils # (Manual) D-Dimer Heparin Anti-Xa Level ABG pH POC ABG pCO2 POC ABG pO2 ABG pO2 ABG HCO3 ABG O2 Saturation ABG Base Excess ABG Hemoglobin ABG Oxyhemoglobin VBG pH Oxyhemoglobin Sodium 135 L Potassium Chloride Carbon Dioxide 18 L BUN Creatinine Glucose POC Glucose 241 H Lactic Acid Calcium Ferritin AST Alkaline Phosphatase Magnesium Lactate Dehydrogenase Total Creatine Kinase CK-MB (CK-2) C-Reactive Protein Total Protein Albumin Troponin T HDL Cholesterol Urine WBC (Auto) 11.0 H Urine Creatinine Urine Total Protein Coronavirus (PCR) Crossmatch 06/04/20 06/04/20 06/04/20 03:35 04:19 04:19 WBC RBC 3.15 L Hgb 8.9 L Hct 26.8 L D MCHC RDW 15.9 H Lymph % (Auto) 6.0 L [place] % (Auto) Eos % (Auto) Lymph # 0.6 L [place] # Lymph # (Auto) [place] # (Auto) Seg Neutrophils % 86.6 H Seg Neuts % (Manual) Lymphocytes % (Manual) Seg Neutrophils # 9.1 H Seg Neutrophils # Man Lymphocytes # (Manual) Monocytes % (Manual) Eosinophils % (Manual) Monocytes # (Manual) Eosinophils # (Manual) D-Dimer Heparin Anti-Xa Level ABG pH 7.331 L POC ABG pCO2 POC ABG pO2 ABG pO2 ABG HCO3 ABG O2 Saturation ABG Base Excess -4.7 L ABG Hemoglobin 11.0 L ABG Oxyhemoglobin VBG pH Oxyhemoglobin 93.9 L Sodium 136 L Potassium Chloride Carbon Dioxide 20 L BUN 73 H Creatinine 2.0 H Glucose 192 H POC Glucose Lactic Acid Calcium 8.0 L Ferritin AST Alkaline Phosphatase Magnesium Lactate Dehydrogenase 271 H Total Creatine Kinase CK-MB (CK-2) C-Reactive Protein 2.20 H Total Protein 5.0 L Albumin 2.0 L Troponin T HDL Cholesterol Urine WBC (Auto) Urine Creatinine Urine Total Protein Coronavirus (PCR) Crossmatch 06/04/20 06/04/20 06/04/20 04:19 05:51 11:48 WBC RBC Hgb Hct MCHC RDW Lymph % (Auto) [place] % (Auto) Eos % (Auto) Lymph # [place] # Lymph # (Auto) [place] # (Auto) Seg Neutrophils % Seg Neuts % (Manual) Lymphocytes % (Manual) Seg Neutrophils # Seg Neutrophils # Man Lymphocytes # (Manual) Monocytes % (Manual) Eosinophils % (Manual) Monocytes # (Manual) Eosinophils # (Manual) D-Dimer 414.52 H Heparin Anti-Xa Level ABG pH POC ABG pCO2 POC ABG pO2 ABG pO2 ABG HCO3 ABG O2 Saturation ABG Base Excess ABG Hemoglobin ABG Oxyhemoglobin VBG pH Oxyhemoglobin Sodium Potassium Chloride Carbon Dioxide BUN Creatinine Glucose POC Glucose 179 H 213 H Lactic Acid Calcium Ferritin AST Alkaline Phosphatase Magnesium Lactate Dehydrogenase Total Creatine Kinase CK-MB (CK-2) C-Reactive Protein Total Protein Albumin Troponin T HDL Cholesterol Urine WBC (Auto) Urine Creatinine Urine Total Protein Coronavirus (PCR) Crossmatch 06/04/20 06/05/20 06/05/20 18:25 00:16 05:00 WBC RBC Hgb Hct MCHC RDW Lymph % (Auto) [place] % (Auto) Eos % (Auto) Lymph # [place] # Lymph # (Auto) [place] # (Auto) Seg Neutrophils % Seg Neuts % (Manual) Lymphocytes % (Manual) Seg Neutrophils # Seg Neutrophils # Man Lymphocytes # (Manual) Monocytes % (Manual) Eosinophils % (Manual) Monocytes # (Manual) Eosinophils # (Manual) D-Dimer Heparin Anti-Xa Level ABG pH 7.286 L POC ABG pCO2 POC ABG pO2 ABG pO2 96.2 H ABG HCO3 ABG O2 Saturation ABG Base Excess -6.3 L ABG Hemoglobin 8.8 L ABG Oxyhemoglobin VBG pH Oxyhemoglobin 94.8 L Sodium Potassium Chloride Carbon Dioxide BUN Creatinine Glucose POC Glucose 238 H 183 H Lactic Acid Calcium Ferritin AST Alkaline Phosphatase Magnesium Lactate Dehydrogenase Total Creatine Kinase CK-MB (CK-2) C-Reactive Protein Total Protein Albumin Troponin T HDL Cholesterol Urine WBC (Auto) Urine Creatinine Urine Total Protein Coronavirus (PCR) Crossmatch 06/05/20 06/05/20 06/05/20 05:39 07:25 07:25 WBC RBC 2.97 L Hgb 8.7 L Hct 25.7 L MCHC RDW 16.0 H Lymph % (Auto) 8.8 L [place] % (Auto) 13.3 H Eos % (Auto) Lymph # 0.8 L [place] # 1.3 H Lymph # (Auto) [place] # (Auto) Seg Neutrophils % 77.3 H Seg Neuts % (Manual) Lymphocytes % (Manual) Seg Neutrophils # Seg Neutrophils # Man Lymphocytes # (Manual) Monocytes % (Manual) Eosinophils % (Manual) Monocytes # (Manual) Eosinophils # (Manual) D-Dimer Heparin Anti-Xa Level ABG pH POC ABG pCO2 POC ABG pO2 ABG pO2 ABG HCO3 ABG O2 Saturation ABG Base Excess ABG Hemoglobin ABG Oxyhemoglobin VBG pH Oxyhemoglobin Sodium 133 L Potassium Chloride Carbon Dioxide 17 L BUN 89 H Creatinine 2.8 H Glucose 176 H POC Glucose 149 H Lactic Acid Calcium 7.7 L Ferritin AST Alkaline Phosphatase Magnesium Lactate Dehydrogenase Total Creatine Kinase CK-MB (CK-2) C-Reactive Protein Total Protein 4.2 L Albumin 1.9 L Troponin T HDL Cholesterol Urine WBC (Auto) Urine Creatinine Urine Total Protein Coronavirus (PCR) Crossmatch 06/05/20 06/05/20 06/05/20 07:25 12:05 15:41 WBC RBC Hgb Hct MCHC RDW Lymph % (Auto) [place] % (Auto) Eos % (Auto) Lymph # [place] # Lymph # (Auto) [place] # (Auto) Seg Neutrophils % Seg Neuts % (Manual) Lymphocytes % (Manual) Seg Neutrophils # Seg Neutrophils # Man Lymphocytes # (Manual) Monocytes % (Manual) Eosinophils % (Manual) Monocytes # (Manual) Eosinophils # (Manual) D-Dimer Heparin Anti-Xa Level 0.76 H 0.81 H ABG pH POC ABG pCO2 POC ABG pO2 ABG pO2 ABG HCO3 ABG O2 Saturation ABG Base Excess ABG Hemoglobin ABG Oxyhemoglobin VBG pH Oxyhemoglobin Sodium Potassium Chloride Carbon Dioxide BUN Creatinine Glucose POC Glucose 198 H Lactic Acid Calcium Ferritin AST Alkaline Phosphatase Magnesium Lactate Dehydrogenase Total Creatine Kinase CK-MB (CK-2) C-Reactive Protein Total Protein Albumin Troponin T HDL Cholesterol Urine WBC (Auto) Urine Creatinine Urine Total Protein Coronavirus (PCR) Crossmatch 06/05/20 06/05/20 06/06/20 18:08 23:25 04:00 WBC RBC Hgb Hct MCHC RDW Lymph % (Auto) [place] % (Auto) Eos % (Auto) Lymph # [place] # Lymph # (Auto) [place] # (Auto) Seg Neutrophils % Seg Neuts % (Manual) Lymphocytes % (Manual) Seg Neutrophils # Seg Neutrophils # Man Lymphocytes # (Manual) Monocytes % (Manual) Eosinophils % (Manual) Monocytes # (Manual) Eosinophils # (Manual) D-Dimer Heparin Anti-Xa Level ABG pH POC ABG pCO2 POC ABG pO2 ABG pO2 ABG HCO3 ABG O2 Saturation ABG Base Excess ABG Hemoglobin ABG Oxyhemoglobin VBG pH Oxyhemoglobin Sodium Potassium Chloride Carbon Dioxide BUN Creatinine Glucose POC Glucose 223 H 169 H Lactic Acid Calcium Ferritin AST Alkaline Phosphatase Magnesium Lactate Dehydrogenase Total Creatine Kinase CK-MB (CK-2) C-Reactive Protein Total Protein Albumin Troponin T HDL Cholesterol Urine WBC (Auto) 15.0 H Urine Creatinine Urine Total Protein Coronavirus (PCR) Crossmatch 06/06/20 06/06/20 06/06/20 04:00 05:33 05:38 WBC RBC 2.97 L Hgb 8.7 L Hct 26.8 L MCHC RDW 16.8 H Lymph % (Auto) [place] % (Auto) Eos % (Auto) Lymph # [place] # Lymph # (Auto) [place] # (Auto) Seg Neutrophils % Seg Neuts % (Manual) Lymphocytes % (Manual) Seg Neutrophils # Seg Neutrophils # Man Lymphocytes # (Manual) Monocytes % (Manual) Eosinophils % (Manual) Monocytes # (Manual) Eosinophils # (Manual) D-Dimer Heparin Anti-Xa Level ABG pH POC ABG pCO2 POC ABG pO2 ABG pO2 ABG HCO3 ABG O2 Saturation ABG Base Excess ABG Hemoglobin ABG Oxyhemoglobin VBG pH Oxyhemoglobin Sodium Potassium Chloride Carbon Dioxide BUN Creatinine Glucose POC Glucose 186 H Lactic Acid Calcium Ferritin AST Alkaline Phosphatase Magnesium Lactate Dehydrogenase Total Creatine Kinase CK-MB (CK-2) C-Reactive Protein Total Protein Albumin Troponin T HDL Cholesterol Urine WBC (Auto) Urine Creatinine 82.2 H Urine Total Protein 196 H Coronavirus (PCR) Crossmatch 06/06/20 06/06/20 06/06/20 05:38 12:25 17:03 WBC RBC Hgb Hct MCHC RDW Lymph % (Auto) [place] % (Auto) Eos % (Auto) Lymph # [place] # Lymph # (Auto) [place] # (Auto) Seg Neutrophils % Seg Neuts % (Manual) Lymphocytes % (Manual) Seg Neutrophils # Seg Neutrophils # Man Lymphocytes # (Manual) Monocytes % (Manual) Eosinophils % (Manual) Monocytes # (Manual) Eosinophils # (Manual) D-Dimer Heparin Anti-Xa Level ABG pH POC ABG pCO2 POC ABG pO2 ABG pO2 ABG HCO3 ABG O2 Saturation ABG Base Excess ABG Hemoglobin ABG Oxyhemoglobin VBG pH Oxyhemoglobin Sodium 134 L Potassium 5.2 H Chloride Carbon Dioxide 18 L BUN 97 H Creatinine 2.5 H Glucose 193 H POC Glucose 239 H 252 H Lactic Acid Calcium 7.5 L Ferritin AST Alkaline Phosphatase Magnesium Lactate Dehydrogenase Total Creatine Kinase CK-MB (CK-2) C-Reactive Protein Total Protein 4.1 L Albumin 1.9 L Troponin T HDL Cholesterol Urine WBC (Auto) Urine Creatinine Urine Total Protein Coronavirus (PCR) Crossmatch 06/07/20 06/07/20 06/07/20 00:16 01:49 04:00 WBC RBC 2.91 L Hgb 8.4 L Hct 25.0 L MCHC RDW 16.1 H Lymph % (Auto) 5.7 L [place] % (Auto) 10.5 H Eos % (Auto) Lymph # 0.6 L [place] # 1.1 H Lymph # (Auto) [place] # (Auto) Seg Neutrophils % 83.6 H Seg Neuts % (Manual) Lymphocytes % (Manual) Seg Neutrophils # 9.1 H Seg Neutrophils # Man Lymphocytes # (Manual) Monocytes % (Manual) Eosinophils % (Manual) Monocytes # (Manual) Eosinophils # (Manual) D-Dimer Heparin Anti-Xa Level 0.26 L ABG pH POC ABG pCO2 POC ABG pO2 ABG pO2 ABG HCO3 ABG O2 Saturation ABG Base Excess ABG Hemoglobin ABG Oxyhemoglobin VBG pH Oxyhemoglobin Sodium Potassium Chloride Carbon Dioxide BUN Creatinine Glucose POC Glucose 173 H Lactic Acid Calcium Ferritin AST Alkaline Phosphatase Magnesium Lactate Dehydrogenase Total Creatine Kinase CK-MB (CK-2) C-Reactive Protein Total Protein Albumin Troponin T HDL Cholesterol Urine WBC (Auto) Urine Creatinine Urine Total Protein Coronavirus (PCR) Crossmatch 06/07/20 06/07/20 06/07/20 04:00 04:54 05:51 WBC RBC Hgb Hct MCHC RDW Lymph % (Auto) [place] % (Auto) Eos % (Auto) Lymph # [place] # Lymph # (Auto) [place] # (Auto) Seg Neutrophils % Seg Neuts % (Manual) Lymphocytes % (Manual) Seg Neutrophils # Seg Neutrophils # Man Lymphocytes # (Manual) Monocytes % (Manual) Eosinophils % (Manual) Monocytes # (Manual) Eosinophils # (Manual) D-Dimer Heparin Anti-Xa Level ABG pH 7.317 L POC ABG pCO2 POC ABG pO2 ABG pO2 71.4 L ABG HCO3 ABG O2 Saturation 94.3 L ABG Base Excess -4.8 L ABG Hemoglobin 7.1 L ABG Oxyhemoglobin VBG pH Oxyhemoglobin 92.2 L Sodium 133 L Potassium Chloride Carbon Dioxide 18 L BUN 100 H Creatinine 2.5 H Glucose 158 H POC Glucose 168 H Lactic Acid Calcium 7.6 L Ferritin AST Alkaline Phosphatase Magnesium Lactate Dehydrogenase Total Creatine Kinase CK-MB (CK-2) C-Reactive Protein Total Protein 4.7 L Albumin 2.0 L Troponin T HDL Cholesterol Urine WBC (Auto) Urine Creatinine Urine Total Protein Coronavirus (PCR) Crossmatch 06/07/20 06/07/20 06/07/20 12:03 17:17 20:10 WBC RBC Hgb Hct MCHC RDW Lymph % (Auto) [place] % (Auto) Eos % (Auto) Lymph # [place] # Lymph # (Auto) [place] # (Auto) Seg Neutrophils % Seg Neuts % (Manual) Lymphocytes % (Manual) Seg Neutrophils # Seg Neutrophils # Man Lymphocytes # (Manual) Monocytes % (Manual) Eosinophils % (Manual) Monocytes # (Manual) Eosinophils # (Manual) D-Dimer Heparin Anti-Xa Level 0.17 L ABG pH POC ABG pCO2 POC ABG pO2 ABG pO2 ABG HCO3 ABG O2 Saturation ABG Base Excess ABG Hemoglobin ABG Oxyhemoglobin VBG pH Oxyhemoglobin Sodium Potassium Chloride Carbon Dioxide BUN Creatinine Glucose POC Glucose 276 H 281 H Lactic Acid Calcium Ferritin AST Alkaline Phosphatase Magnesium Lactate Dehydrogenase Total Creatine Kinase CK-MB (CK-2) C-Reactive Protein Total Protein Albumin Troponin T HDL Cholesterol Urine WBC (Auto) Urine Creatinine Urine Total Protein Coronavirus (PCR) Crossmatch 06/08/20 06/08/20 06/08/20 00:02 04:47 04:47 WBC 16.4 H RBC 3.07 L Hgb 8.6 L Hct 26.5 L MCHC RDW 16.3 H Lymph % (Auto) [place] % (Auto) Eos % (Auto) Lymph # [place] # Lymph # (Auto) [place] # (Auto) Seg Neutrophils % Seg Neuts % (Manual) 90.0 H Lymphocytes % (Manual) 3.0 L Seg Neutrophils # Seg Neutrophils # Man 14.8 H Lymphocytes # (Manual) 0.5 L Monocytes % (Manual) Eosinophils % (Manual) Monocytes # (Manual) 1.1 H Eosinophils # (Manual) D-Dimer Heparin Anti-Xa Level ABG pH POC ABG pCO2 POC ABG pO2 ABG pO2 ABG HCO3 ABG O2 Saturation ABG Base Excess ABG Hemoglobin ABG Oxyhemoglobin VBG pH Oxyhemoglobin Sodium 129 L Potassium Chloride 95.6 L Carbon Dioxide 17 L BUN 106 H Creatinine 2.5 H Glucose 213 H POC Glucose 242 H Lactic Acid Calcium 7.6 L Ferritin AST Alkaline Phosphatase Magnesium Lactate Dehydrogenase Total Creatine Kinase CK-MB (CK-2) C-Reactive Protein Total Protein 5.0 L Albumin 2.1 L Troponin T HDL Cholesterol Urine WBC (Auto) Urine Creatinine Urine Total Protein Coronavirus (PCR) Crossmatch 06/08/20 06/08/20 06/08/20 05:40 11:55 17:54 WBC RBC Hgb Hct MCHC RDW Lymph % (Auto) [place] % (Auto) Eos % (Auto) Lymph # [place] # Lymph # (Auto) [place] # (Auto) Seg Neutrophils % Seg Neuts % (Manual) Lymphocytes % (Manual) Seg Neutrophils # Seg Neutrophils # Man Lymphocytes # (Manual) Monocytes % (Manual) Eosinophils % (Manual) Monocytes # (Manual) Eosinophils # (Manual) D-Dimer Heparin Anti-Xa Level ABG pH POC ABG pCO2 POC ABG pO2 ABG pO2 ABG HCO3 ABG O2 Saturation ABG Base Excess ABG Hemoglobin ABG Oxyhemoglobin VBG pH Oxyhemoglobin Sodium Potassium Chloride Carbon Dioxide BUN Creatinine Glucose POC Glucose 221 H 218 H 163 H Lactic Acid Calcium Ferritin AST Alkaline Phosphatase Magnesium Lactate Dehydrogenase Total Creatine Kinase CK-MB (CK-2) C-Reactive Protein Total Protein Albumin Troponin T HDL Cholesterol Urine WBC (Auto) Urine Creatinine Urine Total Protein Coronavirus (PCR) Crossmatch 06/08/20 06/09/20 06/09/20 22:01 00:09 05:16 WBC 19.0 H RBC 3.35 L Hgb 9.2 L Hct 28.5 L MCHC RDW 16.3 H Lymph % (Auto) [place] % (Auto) Eos % (Auto) Lymph # [place] # Lymph # (Auto) [place] # (Auto) Seg Neutrophils % Seg Neuts % (Manual) 85.0 H Lymphocytes % (Manual) 7.0 L Seg Neutrophils # Seg Neutrophils # Man 16.2 H Lymphocytes # (Manual) Monocytes % (Manual) Eosinophils % (Manual) Monocytes # (Manual) 1.3 H Eosinophils # (Manual) D-Dimer Heparin Anti-Xa Level ABG pH POC ABG pCO2 POC ABG pO2 ABG pO2 ABG HCO3 ABG O2 Saturation ABG Base Excess ABG Hemoglobin ABG Oxyhemoglobin VBG pH Oxyhemoglobin Sodium Potassium Chloride Carbon Dioxide BUN Creatinine Glucose POC Glucose 182 H 150 H Lactic Acid Calcium Ferritin AST Alkaline Phosphatase Magnesium Lactate Dehydrogenase Total Creatine Kinase CK-MB (CK-2) C-Reactive Protein Total Protein Albumin Troponin T HDL Cholesterol Urine WBC (Auto) Urine Creatinine Urine Total Protein Coronavirus (PCR) Crossmatch 06/09/20 06/09/20 06/09/20 05:16 05:24 11:29 WBC RBC Hgb Hct MCHC RDW Lymph % (Auto) [place] % (Auto) Eos % (Auto) Lymph # [place] # Lymph # (Auto) [place] # (Auto) Seg Neutrophils % Seg Neuts % (Manual) Lymphocytes % (Manual) Seg Neutrophils # Seg Neutrophils # Man Lymphocytes # (Manual) Monocytes % (Manual) Eosinophils % (Manual) Monocytes # (Manual) Eosinophils # (Manual) D-Dimer Heparin Anti-Xa Level ABG pH POC ABG pCO2 POC ABG pO2 ABG pO2 ABG HCO3 ABG O2 Saturation ABG Base Excess ABG Hemoglobin ABG Oxyhemoglobin VBG pH Oxyhemoglobin Sodium 133 L Potassium Chloride Carbon Dioxide 19 L BUN 109 H Creatinine 2.1 H Glucose 133 H POC Glucose 128 H 119 H Lactic Acid Calcium 7.7 L Ferritin AST Alkaline Phosphatase < 5 L Magnesium Lactate Dehydrogenase Total Creatine Kinase CK-MB (CK-2) C-Reactive Protein Total Protein 4.6 L Albumin < 0.2 L Troponin T HDL Cholesterol Urine WBC (Auto) Urine Creatinine Urine Total Protein Coronavirus (PCR) Crossmatch 06/09/20 06/10/20 06/10/20 17:32 00:00 05:49 WBC RBC Hgb Hct MCHC RDW Lymph % (Auto) [place] % (Auto) Eos % (Auto) Lymph # [place] # Lymph # (Auto) [place] # (Auto) Seg Neutrophils % Seg Neuts % (Manual) Lymphocytes % (Manual) Seg Neutrophils # Seg Neutrophils # Man Lymphocytes # (Manual) Monocytes % (Manual) Eosinophils % (Manual) Monocytes # (Manual) Eosinophils # (Manual) D-Dimer Heparin Anti-Xa Level 0.19 L ABG pH POC ABG pCO2 POC ABG pO2 ABG pO2 ABG HCO3 ABG O2 Saturation ABG Base Excess ABG Hemoglobin ABG Oxyhemoglobin VBG pH Oxyhemoglobin Sodium Potassium Chloride Carbon Dioxide BUN Creatinine Glucose POC Glucose 106 H 117 H Lactic Acid Calcium Ferritin AST Alkaline Phosphatase Magnesium Lactate Dehydrogenase Total Creatine Kinase CK-MB (CK-2) C-Reactive Protein Total Protein Albumin Troponin T HDL Cholesterol Urine WBC (Auto) Urine Creatinine Urine Total Protein Coronavirus (PCR) Crossmatch 06/10/20 06/10/20 06/10/20 05:54 07:40 11:40 WBC RBC Hgb Hct MCHC RDW Lymph % (Auto) [place] % (Auto) Eos % (Auto) Lymph # [place] # Lymph # (Auto) [place] # (Auto) Seg Neutrophils % Seg Neuts % (Manual) Lymphocytes % (Manual) Seg Neutrophils # Seg Neutrophils # Man Lymphocytes # (Manual) Monocytes % (Manual) Eosinophils % (Manual) Monocytes # (Manual) Eosinophils # (Manual) D-Dimer Heparin Anti-Xa Level ABG pH POC ABG pCO2 POC ABG pO2 ABG pO2 ABG HCO3 ABG O2 Saturation ABG Base Excess ABG Hemoglobin ABG Oxyhemoglobin VBG pH Oxyhemoglobin Sodium 146 H D Potassium Chloride Carbon Dioxide 20 L BUN 99 H Creatinine 1.9 H Glucose 121 H POC Glucose 127 H 138 H Lactic Acid Calcium 8.2 L Ferritin AST Alkaline Phosphatase Magnesium Lactate Dehydrogenase Total Creatine Kinase CK-MB (CK-2) C-Reactive Protein Total Protein Albumin Troponin T HDL Cholesterol Urine WBC (Auto) Urine Creatinine Urine Total Protein Coronavirus (PCR) Crossmatch 06/10/20 06/10/20 06/10/20 14:44 17:31 23:22 WBC RBC Hgb Hct MCHC RDW Lymph % (Auto) [place] % (Auto) Eos % (Auto) Lymph # [place] # Lymph # (Auto) [place] # (Auto) Seg Neutrophils % Seg Neuts % (Manual) Lymphocytes % (Manual) Seg Neutrophils # Seg Neutrophils # Man Lymphocytes # (Manual) Monocytes % (Manual) Eosinophils % (Manual) Monocytes # (Manual) Eosinophils # (Manual) D-Dimer Heparin Anti-Xa Level 0.17 L ABG pH POC ABG pCO2 POC ABG pO2 ABG pO2 ABG HCO3 ABG O2 Saturation ABG Base Excess ABG Hemoglobin ABG Oxyhemoglobin VBG pH Oxyhemoglobin Sodium Potassium Chloride Carbon Dioxide BUN Creatinine Glucose POC Glucose 128 H 114 H Lactic Acid Calcium Ferritin AST Alkaline Phosphatase Magnesium Lactate Dehydrogenase Total Creatine Kinase CK-MB (CK-2) C-Reactive Protein Total Protein Albumin Troponin T HDL Cholesterol Urine WBC (Auto) Urine Creatinine Urine Total Protein Coronavirus (PCR) Crossmatch 06/11/20 06/11/20 06/11/20 00:22 03:45 03:45 WBC 14.6 H RBC 2.77 L Hgb 7.9 L Hct 24.3 L MCHC RDW 16.8 H Lymph % (Auto) 6.6 L [place] % (Auto) 8.5 H Eos % (Auto) Lymph # 1.0 L [place] # 1.2 H Lymph # (Auto) [place] # (Auto) Seg Neutrophils % 82.9 H Seg Neuts % (Manual) Lymphocytes % (Manual) Seg Neutrophils # 12.1 H Seg Neutrophils # Man Lymphocytes # (Manual) Monocytes % (Manual) Eosinophils % (Manual) Monocytes # (Manual) Eosinophils # (Manual) D-Dimer Heparin Anti-Xa Level 0.24 L ABG pH POC ABG pCO2 POC ABG pO2 ABG pO2 ABG HCO3 ABG O2 Saturation ABG Base Excess ABG Hemoglobin ABG Oxyhemoglobin VBG pH Oxyhemoglobin Sodium Potassium Chloride Carbon Dioxide 20 L BUN 88 H Creatinine 1.5 H Glucose 111 H POC Glucose Lactic Acid Calcium 8.2 L Ferritin AST Alkaline Phosphatase Magnesium Lactate Dehydrogenase Total Creatine Kinase CK-MB (CK-2) C-Reactive Protein Total Protein Albumin Troponin T HDL Cholesterol Urine WBC (Auto) Urine Creatinine Urine Total Protein Coronavirus (PCR) Crossmatch 06/11/20 06/11/20 06/11/20 06:03 10:22 11:11 WBC RBC Hgb Hct MCHC RDW Lymph % (Auto) [place] % (Auto) Eos % (Auto) Lymph # [place] # Lymph # (Auto) [place] # (Auto) Seg Neutrophils % Seg Neuts % (Manual) Lymphocytes % (Manual) Seg Neutrophils # Seg Neutrophils # Man Lymphocytes # (Manual) Monocytes % (Manual) Eosinophils % (Manual) Monocytes # (Manual) Eosinophils # (Manual) D-Dimer Heparin Anti-Xa Level 0.26 L ABG pH POC ABG pCO2 POC ABG pO2 ABG pO2 ABG HCO3 ABG O2 Saturation ABG Base Excess ABG Hemoglobin 9.6 L ABG Oxyhemoglobin VBG pH Oxyhemoglobin Sodium Potassium Chloride Carbon Dioxide BUN Creatinine Glucose POC Glucose 114 H Lactic Acid Calcium Ferritin AST Alkaline Phosphatase Magnesium Lactate Dehydrogenase Total Creatine Kinase CK-MB (CK-2) C-Reactive Protein Total Protein Albumin Troponin T HDL Cholesterol Urine WBC (Auto) Urine Creatinine Urine Total Protein Coronavirus (PCR) Crossmatch 06/11/20 06/11/20 06/12/20 12:24 17:24 00:21 WBC RBC Hgb Hct MCHC RDW Lymph % (Auto) [place] % (Auto) Eos % (Auto) Lymph # [place] # Lymph # (Auto) [place] # (Auto) Seg Neutrophils % Seg Neuts % (Manual) Lymphocytes % (Manual) Seg Neutrophils # Seg Neutrophils # Man Lymphocytes # (Manual) Monocytes % (Manual) Eosinophils % (Manual) Monocytes # (Manual) Eosinophils # (Manual) D-Dimer Heparin Anti-Xa Level ABG pH POC ABG pCO2 POC ABG pO2 ABG pO2 ABG HCO3 ABG O2 Saturation ABG Base Excess ABG Hemoglobin ABG Oxyhemoglobin VBG pH Oxyhemoglobin Sodium Potassium Chloride Carbon Dioxide BUN Creatinine Glucose POC Glucose 119 H 126 H 117 H Lactic Acid Calcium Ferritin AST Alkaline Phosphatase Magnesium Lactate Dehydrogenase Total Creatine Kinase CK-MB (CK-2) C-Reactive Protein Total Protein Albumin Troponin T HDL Cholesterol Urine WBC (Auto) Urine Creatinine Urine Total Protein Coronavirus (PCR) Crossmatch 06/12/20 06/12/20 06/12/20 02:46 02:46 05:46 WBC 13.2 H RBC 2.83 L Hgb 8.3 L Hct 24.3 L MCHC RDW 16.6 H Lymph % (Auto) 6.2 L [place] % (Auto) 9.5 H Eos % (Auto) Lymph # 0.8 L [place] # 1.3 H Lymph # (Auto) [place] # (Auto) Seg Neutrophils % 81.9 H Seg Neuts % (Manual) Lymphocytes % (Manual) Seg Neutrophils # 10.9 H Seg Neutrophils # Man Lymphocytes # (Manual) Monocytes % (Manual) Eosinophils % (Manual) Monocytes # (Manual) Eosinophils # (Manual) D-Dimer Heparin Anti-Xa Level ABG pH POC ABG pCO2 POC ABG pO2 ABG pO2 ABG HCO3 ABG O2 Saturation ABG Base Excess ABG Hemoglobin ABG Oxyhemoglobin VBG pH Oxyhemoglobin Sodium Potassium 3.5 L Chloride Carbon Dioxide BUN 77 H Creatinine 1.3 H Glucose POC Glucose 132 H Lactic Acid Calcium 8.3 L Ferritin AST Alkaline Phosphatase Magnesium Lactate Dehydrogenase Total Creatine Kinase CK-MB (CK-2) C-Reactive Protein Total Protein Albumin Troponin T HDL Cholesterol Urine WBC (Auto) Urine Creatinine Urine Total Protein Coronavirus (PCR) Crossmatch 06/12/20 06/12/20 06/12/20 09:20 12:16 17:48 WBC RBC Hgb Hct MCHC RDW Lymph % (Auto) [place] % (Auto) Eos % (Auto) Lymph # [place] # Lymph # (Auto) [place] # (Auto) Seg Neutrophils % Seg Neuts % (Manual) Lymphocytes % (Manual) Seg Neutrophils # Seg Neutrophils # Man Lymphocytes # (Manual) Monocytes % (Manual) Eosinophils % (Manual) Monocytes # (Manual) Eosinophils # (Manual) D-Dimer Heparin Anti-Xa Level ABG pH POC ABG pCO2 POC ABG pO2 ABG pO2 91.1 H ABG HCO3 ABG O2 Saturation ABG Base Excess ABG Hemoglobin ABG Oxyhemoglobin VBG pH Oxyhemoglobin 94.8 L Sodium Potassium Chloride Carbon Dioxide BUN Creatinine Glucose POC Glucose 167 H 182 H Lactic Acid Calcium Ferritin AST Alkaline Phosphatase Magnesium Lactate Dehydrogenase Total Creatine Kinase CK-MB (CK-2) C-Reactive Protein Total Protein Albumin Troponin T HDL Cholesterol Urine WBC (Auto) Urine Creatinine Urine Total Protein Coronavirus (PCR) Crossmatch 06/13/20 06/13/20 06/13/20 00:08 05:37 09:09 WBC RBC Hgb Hct MCHC RDW Lymph % (Auto) [place] % (Auto) Eos % (Auto) Lymph # [place] # Lymph # (Auto) [place] # (Auto) Seg Neutrophils % Seg Neuts % (Manual) Lymphocytes % (Manual) Seg Neutrophils # Seg Neutrophils # Man Lymphocytes # (Manual) Monocytes % (Manual) Eosinophils % (Manual) Monocytes # (Manual) Eosinophils # (Manual) D-Dimer Heparin Anti-Xa Level 0.86 H ABG pH POC ABG pCO2 POC ABG pO2 ABG pO2 ABG HCO3 ABG O2 Saturation ABG Base Excess ABG Hemoglobin ABG Oxyhemoglobin VBG pH Oxyhemoglobin Sodium Potassium Chloride Carbon Dioxide BUN Creatinine Glucose POC Glucose 142 H 119 H Lactic Acid Calcium Ferritin AST Alkaline Phosphatase Magnesium Lactate Dehydrogenase Total Creatine Kinase CK-MB (CK-2) C-Reactive Protein Total Protein Albumin Troponin T HDL Cholesterol Urine WBC (Auto) Urine Creatinine Urine Total Protein Coronavirus (PCR) Crossmatch 06/13/20 06/13/20 06/13/20 12:28 17:55 21:17 WBC RBC Hgb Hct MCHC RDW Lymph % (Auto) [place] % (Auto) Eos % (Auto) Lymph # [place] # Lymph # (Auto) [place] # (Auto) Seg Neutrophils % Seg Neuts % (Manual) Lymphocytes % (Manual) Seg Neutrophils # Seg Neutrophils # Man Lymphocytes # (Manual) Monocytes % (Manual) Eosinophils % (Manual) Monocytes # (Manual) Eosinophils # (Manual) D-Dimer Heparin Anti-Xa Level ABG pH POC ABG pCO2 POC ABG pO2 ABG pO2 ABG HCO3 ABG O2 Saturation ABG Base Excess ABG Hemoglobin ABG Oxyhemoglobin VBG pH Oxyhemoglobin Sodium Potassium Chloride Carbon Dioxide BUN 61 H Creatinine Glucose 131 H POC Glucose 165 H 174 H Lactic Acid Calcium Ferritin AST Alkaline Phosphatase Magnesium Lactate Dehydrogenase Total Creatine Kinase CK-MB (CK-2) C-Reactive Protein Total Protein Albumin Troponin T HDL Cholesterol Urine WBC (Auto) Urine Creatinine Urine Total Protein Coronavirus (PCR) Crossmatch 06/13/20 06/13/20 06/14/20 21:17 23:50 05:34 WBC RBC Hgb Hct MCHC RDW Lymph % (Auto) [place] % (Auto) Eos % (Auto) Lymph # [place] # Lymph # (Auto) [place] # (Auto) Seg Neutrophils % Seg Neuts % (Manual) Lymphocytes % (Manual) Seg Neutrophils # Seg Neutrophils # Man Lymphocytes # (Manual) Monocytes % (Manual) Eosinophils % (Manual) Monocytes # (Manual) Eosinophils # (Manual) D-Dimer Heparin Anti-Xa Level 0.72 H ABG pH POC ABG pCO2 POC ABG pO2 ABG pO2 ABG HCO3 ABG O2 Saturation ABG Base Excess ABG Hemoglobin ABG Oxyhemoglobin VBG pH Oxyhemoglobin Sodium 146 H Potassium Chloride 107.6 H Carbon Dioxide BUN 61 H Creatinine 1.3 H Glucose 135 H POC Glucose 146 H Lactic Acid Calcium Ferritin AST Alkaline Phosphatase Magnesium Lactate Dehydrogenase Total Creatine Kinase CK-MB (CK-2) C-Reactive Protein Total Protein Albumin Troponin T HDL Cholesterol Urine WBC (Auto) Urine Creatinine Urine Total Protein Coronavirus (PCR) Crossmatch 06/14/20 06/14/20 06/14/20 06:11 09:28 11:30 WBC RBC Hgb Hct MCHC RDW Lymph % (Auto) [place] % (Auto) Eos % (Auto) Lymph # [place] # Lymph # (Auto) [place] # (Auto) Seg Neutrophils % Seg Neuts % (Manual) Lymphocytes % (Manual) Seg Neutrophils # Seg Neutrophils # Man Lymphocytes # (Manual) Monocytes % (Manual) Eosinophils % (Manual) Monocytes # (Manual) Eosinophils # (Manual) D-Dimer Heparin Anti-Xa Level 0.90 H ABG pH POC ABG pCO2 POC ABG pO2 ABG pO2 ABG HCO3 ABG O2 Saturation ABG Base Excess ABG Hemoglobin ABG Oxyhemoglobin VBG pH Oxyhemoglobin Sodium Potassium Chloride Carbon Dioxide BUN Creatinine Glucose POC Glucose 141 H 186 H Lactic Acid Calcium Ferritin AST Alkaline Phosphatase Magnesium Lactate Dehydrogenase Total Creatine Kinase CK-MB (CK-2) C-Reactive Protein Total Protein Albumin Troponin T HDL Cholesterol Urine WBC (Auto) Urine Creatinine Urine Total Protein Coronavirus (PCR) Crossmatch 06/14/20 06/14/20 06/14/20 16:07 18:16 23:51 WBC RBC Hgb Hct MCHC RDW Lymph % (Auto) [place] % (Auto) Eos % (Auto) Lymph # [place] # Lymph # (Auto) [place] # (Auto) Seg Neutrophils % Seg Neuts % (Manual) Lymphocytes % (Manual) Seg Neutrophils # Seg Neutrophils # Man Lymphocytes # (Manual) Monocytes % (Manual) Eosinophils % (Manual) Monocytes # (Manual) Eosinophils # (Manual) D-Dimer Heparin Anti-Xa Level 0.82 H ABG pH POC ABG pCO2 POC ABG pO2 ABG pO2 ABG HCO3 ABG O2 Saturation ABG Base Excess ABG Hemoglobin ABG Oxyhemoglobin VBG pH Oxyhemoglobin Sodium Potassium Chloride Carbon Dioxide BUN Creatinine Glucose POC Glucose 106 H 154 H Lactic Acid Calcium Ferritin AST Alkaline Phosphatase Magnesium Lactate Dehydrogenase Total Creatine Kinase CK-MB (CK-2) C-Reactive Protein Total Protein Albumin Troponin T HDL Cholesterol Urine WBC (Auto) Urine Creatinine Urine Total Protein Coronavirus (PCR) Crossmatch 06/15/20 06/15/20 06/15/20 04:24 04:24 05:59 WBC RBC 2.75 L Hgb 7.9 L Hct 24.0 L MCHC RDW 16.4 H Lymph % (Auto) 12.9 L [place] % (Auto) 8.7 H Eos % (Auto) 4.6 H Lymph # 1.1 L [place] # Lymph # (Auto) [place] # (Auto) Seg Neutrophils % 73.2 H Seg Neuts % (Manual) Lymphocytes % (Manual) Seg Neutrophils # Seg Neutrophils # Man Lymphocytes # (Manual) Monocytes % (Manual) Eosinophils % (Manual) Monocytes # (Manual) Eosinophils # (Manual) D-Dimer Heparin Anti-Xa Level ABG pH POC ABG pCO2 POC ABG pO2 ABG pO2 ABG HCO3 ABG O2 Saturation ABG Base Excess ABG Hemoglobin ABG Oxyhemoglobin VBG pH Oxyhemoglobin Sodium Potassium 3.4 L Chloride Carbon Dioxide BUN 55 H Creatinine 1.3 H Glucose 142 H POC Glucose 131 H Lactic Acid Calcium Ferritin AST Alkaline Phosphatase Magnesium Lactate Dehydrogenase Total Creatine Kinase CK-MB (CK-2) C-Reactive Protein Total Protein Albumin Troponin T HDL Cholesterol Urine WBC (Auto) Urine Creatinine Urine Total Protein Coronavirus (PCR) Crossmatch 06/15/20 06/15/20 06/16/20 12:33 17:07 00:22 WBC RBC Hgb Hct MCHC RDW Lymph % (Auto) [place] % (Auto) Eos % (Auto) Lymph # [place] # Lymph # (Auto) [place] # (Auto) Seg Neutrophils % Seg Neuts % (Manual) Lymphocytes % (Manual) Seg Neutrophils # Seg Neutrophils # Man Lymphocytes # (Manual) Monocytes % (Manual) Eosinophils % (Manual) Monocytes # (Manual) Eosinophils # (Manual) D-Dimer Heparin Anti-Xa Level 0.21 L ABG pH POC ABG pCO2 POC ABG pO2 ABG pO2 ABG HCO3 ABG O2 Saturation ABG Base Excess ABG Hemoglobin ABG Oxyhemoglobin VBG pH Oxyhemoglobin Sodium Potassium Chloride Carbon Dioxide BUN Creatinine Glucose POC Glucose 180 H 185 H Lactic Acid Calcium Ferritin AST Alkaline Phosphatase Magnesium Lactate Dehydrogenase Total Creatine Kinase CK-MB (CK-2) C-Reactive Protein Total Protein Albumin Troponin T HDL Cholesterol Urine WBC (Auto) Urine Creatinine Urine Total Protein Coronavirus (PCR) Crossmatch 06/16/20 06/16/20 06/16/20 01:45 08:06 09:15 WBC RBC Hgb Hct MCHC RDW Lymph % (Auto) [place] % (Auto) Eos % (Auto) Lymph # [place] # Lymph # (Auto) [place] # (Auto) Seg Neutrophils % Seg Neuts % (Manual) Lymphocytes % (Manual) Seg Neutrophils # Seg Neutrophils # Man Lymphocytes # (Manual) Monocytes % (Manual) Eosinophils % (Manual) Monocytes # (Manual) Eosinophils # (Manual) D-Dimer Heparin Anti-Xa Level ABG pH POC ABG pCO2 POC ABG pO2 ABG pO2 ABG HCO3 ABG O2 Saturation ABG Base Excess ABG Hemoglobin ABG Oxyhemoglobin VBG pH Oxyhemoglobin Sodium Potassium Chloride Carbon Dioxide BUN 49 H Creatinine Glucose 154 H POC Glucose 140 H 171 H Lactic Acid Calcium Ferritin AST Alkaline Phosphatase Magnesium Lactate Dehydrogenase Total Creatine Kinase CK-MB (CK-2) C-Reactive Protein Total Protein Albumin Troponin T HDL Cholesterol Urine WBC (Auto) Urine Creatinine Urine Total Protein Coronavirus (PCR) Crossmatch 06/16/20 06/16/20 06/16/20 10:46 12:33 17:54 WBC RBC Hgb Hct MCHC RDW Lymph % (Auto) [place] % (Auto) Eos % (Auto) Lymph # [place] # Lymph # (Auto) [place] # (Auto) Seg Neutrophils % Seg Neuts % (Manual) Lymphocytes % (Manual) Seg Neutrophils # Seg Neutrophils # Man Lymphocytes # (Manual) Monocytes % (Manual) Eosinophils % (Manual) Monocytes # (Manual) Eosinophils # (Manual) D-Dimer Heparin Anti-Xa Level 0.12 L ABG pH POC ABG pCO2 POC ABG pO2 ABG pO2 ABG HCO3 ABG O2 Saturation ABG Base Excess ABG Hemoglobin ABG Oxyhemoglobin VBG pH Oxyhemoglobin Sodium Potassium Chloride Carbon Dioxide BUN Creatinine Glucose POC Glucose 166 H 151 H Lactic Acid Calcium Ferritin AST Alkaline Phosphatase Magnesium Lactate Dehydrogenase Total Creatine Kinase CK-MB (CK-2) C-Reactive Protein Total Protein Albumin Troponin T HDL Cholesterol Urine WBC (Auto) Urine Creatinine Urine Total Protein Coronavirus (PCR) Crossmatch 06/16/20 06/17/20 06/17/20 18:47 00:00 02:19 WBC RBC Hgb Hct MCHC RDW Lymph % (Auto) [place] % (Auto) Eos % (Auto) Lymph # [place] # Lymph # (Auto) [place] # (Auto) Seg Neutrophils % Seg Neuts % (Manual) Lymphocytes % (Manual) Seg Neutrophils # Seg Neutrophils # Man Lymphocytes # (Manual) Monocytes % (Manual) Eosinophils % (Manual) Monocytes # (Manual) Eosinophils # (Manual) D-Dimer Heparin Anti-Xa Level 0.73 H 0.77 H ABG pH POC ABG pCO2 POC ABG pO2 ABG pO2 ABG HCO3 ABG O2 Saturation ABG Base Excess ABG Hemoglobin ABG Oxyhemoglobin VBG pH Oxyhemoglobin Sodium Potassium Chloride Carbon Dioxide BUN Creatinine Glucose POC Glucose 139 H Lactic Acid Calcium Ferritin AST Alkaline Phosphatase Magnesium Lactate Dehydrogenase Total Creatine Kinase CK-MB (CK-2) C-Reactive Protein Total Protein Albumin Troponin T HDL Cholesterol Urine WBC (Auto) Urine Creatinine Urine Total Protein Coronavirus (PCR) Crossmatch 06/17/20 06/17/20 06/17/20 06:07 11:42 16:43 WBC RBC Hgb Hct MCHC RDW Lymph % (Auto) [place] % (Auto) Eos % (Auto) Lymph # [place] # Lymph # (Auto) [place] # (Auto) Seg Neutrophils % Seg Neuts % (Manual) Lymphocytes % (Manual) Seg Neutrophils # Seg Neutrophils # Man Lymphocytes # (Manual) Monocytes % (Manual) Eosinophils % (Manual) Monocytes # (Manual) Eosinophils # (Manual) D-Dimer Heparin Anti-Xa Level 0.73 H ABG pH POC ABG pCO2 POC ABG pO2 ABG pO2 ABG HCO3 ABG O2 Saturation ABG Base Excess ABG Hemoglobin ABG Oxyhemoglobin VBG pH Oxyhemoglobin Sodium Potassium Chloride Carbon Dioxide BUN Creatinine Glucose POC Glucose 169 H 169 H Lactic Acid Calcium Ferritin AST Alkaline Phosphatase Magnesium Lactate Dehydrogenase Total Creatine Kinase CK-MB (CK-2) C-Reactive Protein Total Protein Albumin Troponin T HDL Cholesterol Urine WBC (Auto) Urine Creatinine Urine Total Protein Coronavirus (PCR) Crossmatch 09/09/20 09/09/20 09/09/20 18:18 23:08 23:16 WBC RBC Hgb Hct MCHC RDW Lymph % (Auto) [place] % (Auto) Eos % (Auto) Lymph # [place] # Lymph # (Auto) [place] # (Auto) Seg Neutrophils % Seg Neuts % (Manual) Lymphocytes % (Manual) Seg Neutrophils # Seg Neutrophils # Man Lymphocytes # (Manual) Monocytes % (Manual) Eosinophils % (Manual) Monocytes # (Manual) Eosinophils # (Manual) D-Dimer Heparin Anti-Xa Level 0.71 H ABG pH POC ABG pCO2 POC ABG pO2 ABG pO2 ABG HCO3 ABG O2 Saturation ABG Base Excess ABG Hemoglobin ABG Oxyhemoglobin VBG pH Oxyhemoglobin Sodium Potassium Chloride Carbon Dioxide BUN Creatinine Glucose POC Glucose 159 H 134 H Lactic Acid Calcium Ferritin AST Alkaline Phosphatase Magnesium Lactate Dehydrogenase Total Creatine Kinase CK-MB (CK-2) C-Reactive Protein Total Protein Albumin Troponin T HDL Cholesterol Urine WBC (Auto) Urine Creatinine Urine Total Protein Coronavirus (PCR) Crossmatch 06/18/20 06/18/20 06/18/20 04:42 05:52 11:50 WBC RBC Hgb Hct MCHC RDW Lymph % (Auto) [place] % (Auto) Eos % (Auto) Lymph # [place] # Lymph # (Auto) [place] # (Auto) Seg Neutrophils % Seg Neuts % (Manual) Lymphocytes % (Manual) Seg Neutrophils # Seg Neutrophils # Man Lymphocytes # (Manual) Monocytes % (Manual) Eosinophils % (Manual) Monocytes # (Manual) Eosinophils # (Manual) D-Dimer Heparin Anti-Xa Level ABG pH POC ABG pCO2 POC ABG pO2 ABG pO2 ABG HCO3 ABG O2 Saturation ABG Base Excess ABG Hemoglobin ABG Oxyhemoglobin VBG pH Oxyhemoglobin Sodium Potassium Chloride Carbon Dioxide BUN 44 H Creatinine Glucose 115 H POC Glucose 171 H 167 H Lactic Acid Calcium Ferritin AST Alkaline Phosphatase Magnesium Lactate Dehydrogenase Total Creatine Kinase CK-MB (CK-2) C-Reactive Protein Total Protein Albumin Troponin T HDL Cholesterol Urine WBC (Auto) Urine Creatinine Urine Total Protein Coronavirus (PCR) Crossmatch 06/18/20 06/19/20 06/19/20 23:46 05:48 07:52 WBC RBC Hgb Hct MCHC RDW Lymph % (Auto) [place] % (Auto) Eos % (Auto) Lymph # [place] # Lymph # (Auto) [place] # (Auto) Seg Neutrophils % Seg Neuts % (Manual) Lymphocytes % (Manual) Seg Neutrophils # Seg Neutrophils # Man Lymphocytes # (Manual) Monocytes % (Manual) Eosinophils % (Manual) Monocytes # (Manual) Eosinophils # (Manual) D-Dimer Heparin Anti-Xa Level ABG pH POC ABG pCO2 POC ABG pO2 ABG pO2 ABG HCO3 ABG O2 Saturation ABG Base Excess ABG Hemoglobin ABG Oxyhemoglobin VBG pH Oxyhemoglobin Sodium Potassium Chloride Carbon Dioxide BUN Creatinine Glucose POC Glucose 130 H 207 H 175 H Lactic Acid Calcium Ferritin AST Alkaline Phosphatase Magnesium Lactate Dehydrogenase Total Creatine Kinase CK-MB (CK-2) C-Reactive Protein Total Protein Albumin Troponin T HDL Cholesterol Urine WBC (Auto) Urine Creatinine Urine Total Protein Coronavirus (PCR) Crossmatch 06/19/20 06/19/20 06/20/20 11:42 22:54 05:17 WBC RBC Hgb Hct MCHC RDW Lymph % (Auto) [place] % (Auto) Eos % (Auto) Lymph # [place] # Lymph # (Auto) [place] # (Auto) Seg Neutrophils % Seg Neuts % (Manual) Lymphocytes % (Manual) Seg Neutrophils # Seg Neutrophils # Man Lymphocytes # (Manual) Monocytes % (Manual) Eosinophils % (Manual) Monocytes # (Manual) Eosinophils # (Manual) D-Dimer Heparin Anti-Xa Level ABG pH POC ABG pCO2 POC ABG pO2 ABG pO2 ABG HCO3 ABG O2 Saturation ABG Base Excess ABG Hemoglobin ABG Oxyhemoglobin VBG pH Oxyhemoglobin Sodium Potassium Chloride Carbon Dioxide BUN Creatinine Glucose POC Glucose 166 H 135 H 218 H Lactic Acid Calcium Ferritin AST Alkaline Phosphatase Magnesium Lactate Dehydrogenase Total Creatine Kinase CK-MB (CK-2) C-Reactive Protein Total Protein Albumin Troponin T HDL Cholesterol Urine WBC (Auto) Urine Creatinine Urine Total Protein Coronavirus (PCR) Crossmatch 06/20/20 06/20/20 06/20/20 12:04 16:25 16:35 WBC RBC Hgb Hct MCHC RDW Lymph % (Auto) [place] % (Auto) Eos % (Auto) Lymph # [place] # Lymph # (Auto) [place] # (Auto) Seg Neutrophils % Seg Neuts % (Manual) Lymphocytes % (Manual) Seg Neutrophils # Seg Neutrophils # Man Lymphocytes # (Manual) Monocytes % (Manual) Eosinophils % (Manual) Monocytes # (Manual) Eosinophils # (Manual) D-Dimer Heparin Anti-Xa Level ABG pH POC ABG pCO2 POC ABG pO2 ABG pO2 59.6 L ABG HCO3 28.7 H ABG O2 Saturation 93.5 L ABG Base Excess 3.4 H ABG Hemoglobin 7.2 L ABG Oxyhemoglobin VBG pH Oxyhemoglobin 91.3 L Sodium Potassium Chloride Carbon Dioxide BUN Creatinine Glucose POC Glucose 194 H 137 H Lactic Acid Calcium Ferritin AST Alkaline Phosphatase Magnesium Lactate Dehydrogenase Total Creatine Kinase CK-MB (CK-2) C-Reactive Protein Total Protein Albumin Troponin T HDL Cholesterol Urine WBC (Auto) Urine Creatinine Urine Total Protein Coronavirus (PCR) Crossmatch 06/20/20 06/21/20 06/21/20 23:59 06:25 12:01 WBC RBC Hgb Hct MCHC RDW Lymph % (Auto) [place] % (Auto) Eos % (Auto) Lymph # [place] # Lymph # (Auto) [place] # (Auto) Seg Neutrophils % Seg Neuts % (Manual) Lymphocytes % (Manual) Seg Neutrophils # Seg Neutrophils # Man Lymphocytes # (Manual) Monocytes % (Manual) Eosinophils % (Manual) Monocytes # (Manual) Eosinophils # (Manual) D-Dimer Heparin Anti-Xa Level ABG pH POC ABG pCO2 POC ABG pO2 ABG pO2 ABG HCO3 ABG O2 Saturation ABG Base Excess ABG Hemoglobin ABG Oxyhemoglobin VBG pH Oxyhemoglobin Sodium Potassium Chloride Carbon Dioxide BUN Creatinine Glucose POC Glucose 156 H 177 H 195 H Lactic Acid Calcium Ferritin AST Alkaline Phosphatase Magnesium Lactate Dehydrogenase Total Creatine Kinase CK-MB (CK-2) C-Reactive Protein Total Protein Albumin Troponin T HDL Cholesterol Urine WBC (Auto) Urine Creatinine Urine Total Protein Coronavirus (PCR) Crossmatch 06/21/20 06/21/20 06/22/20 17:04 21:51 05:06 WBC RBC Hgb Hct MCHC RDW Lymph % (Auto) [place] % (Auto) Eos % (Auto) Lymph # [place] # Lymph # (Auto) [place] # (Auto) Seg Neutrophils % Seg Neuts % (Manual) Lymphocytes % (Manual) Seg Neutrophils # Seg Neutrophils # Man Lymphocytes # (Manual) Monocytes % (Manual) Eosinophils % (Manual) Monocytes # (Manual) Eosinophils # (Manual) D-Dimer Heparin Anti-Xa Level ABG pH POC ABG pCO2 POC ABG pO2 ABG pO2 ABG HCO3 ABG O2 Saturation ABG Base Excess ABG Hemoglobin ABG Oxyhemoglobin VBG pH Oxyhemoglobin Sodium Potassium Chloride Carbon Dioxide BUN Creatinine Glucose POC Glucose 156 H 154 H 167 H Lactic Acid Calcium Ferritin AST Alkaline Phosphatase Magnesium Lactate Dehydrogenase Total Creatine Kinase CK-MB (CK-2) C-Reactive Protein Total Protein Albumin Troponin T HDL Cholesterol Urine WBC (Auto) Urine Creatinine Urine Total Protein Coronavirus (PCR) Crossmatch 06/22/20 06/22/20 06/22/20 11:20 15:27 16:58 WBC RBC Hgb Hct MCHC RDW Lymph % (Auto) [place] % (Auto) Eos % (Auto) Lymph # [place] # Lymph # (Auto) [place] # (Auto) Seg Neutrophils % Seg Neuts % (Manual) Lymphocytes % (Manual) Seg Neutrophils # Seg Neutrophils # Man Lymphocytes # (Manual) Monocytes % (Manual) Eosinophils % (Manual) Monocytes # (Manual) Eosinophils # (Manual) D-Dimer Heparin Anti-Xa Level ABG pH 7.206 L POC ABG pCO2 79.9 H POC ABG pO2 ABG pO2 ABG HCO3 ABG O2 Saturation ABG Base Excess ABG Hemoglobin 8.3 L ABG Oxyhemoglobin VBG pH Oxyhemoglobin Sodium Potassium Chloride Carbon Dioxide BUN Creatinine Glucose POC Glucose 181 H 230 H Lactic Acid Calcium Ferritin AST Alkaline Phosphatase Magnesium Lactate Dehydrogenase Total Creatine Kinase CK-MB (CK-2) C-Reactive Protein Total Protein Albumin Troponin T HDL Cholesterol Urine WBC (Auto) Urine Creatinine Urine Total Protein Coronavirus (PCR) Crossmatch 06/22/20 06/23/20 06/23/20 22:26 05:49 05:49 WBC RBC 2.58 L Hgb 7.4 L Hct 23.2 L MCHC RDW 17.0 H Lymph % (Auto) [place] % (Auto) 11.2 H Eos % (Auto) Lymph # 1.0 L [place] # Lymph # (Auto) [place] # (Auto) Seg Neutrophils % Seg Neuts % (Manual) Lymphocytes % (Manual) Seg Neutrophils # Seg Neutrophils # Man Lymphocytes # (Manual) Monocytes % (Manual) Eosinophils % (Manual) Monocytes # (Manual) Eosinophils # (Manual) D-Dimer Heparin Anti-Xa Level ABG pH POC ABG pCO2 POC ABG pO2 ABG pO2 ABG HCO3 ABG O2 Saturation ABG Base Excess ABG Hemoglobin ABG Oxyhemoglobin VBG pH Oxyhemoglobin Sodium Potassium Chloride Carbon Dioxide BUN 68 H Creatinine 2.4 H Glucose 198 H POC Glucose 195 H Lactic Acid Calcium Ferritin AST Alkaline Phosphatase Magnesium Lactate Dehydrogenase Total Creatine Kinase CK-MB (CK-2) C-Reactive Protein Total Protein Albumin Troponin T HDL Cholesterol Urine WBC (Auto) Urine Creatinine Urine Total Protein Coronavirus (PCR) Crossmatch 06/23/20 06/23/20 06/23/20 05:50 12:29 12:34 WBC RBC Hgb Hct MCHC RDW Lymph % (Auto) [place] % (Auto) Eos % (Auto) Lymph # [place] # Lymph # (Auto) [place] # (Auto) Seg Neutrophils % Seg Neuts % (Manual) Lymphocytes % (Manual) Seg Neutrophils # Seg Neutrophils # Man Lymphocytes # (Manual) Monocytes % (Manual) Eosinophils % (Manual) Monocytes # (Manual) Eosinophils # (Manual) D-Dimer Heparin Anti-Xa Level ABG pH POC ABG pCO2 54.7 H POC ABG pO2 68.8 L ABG pO2 ABG HCO3 ABG O2 Saturation ABG Base Excess ABG Hemoglobin 9.8 L ABG Oxyhemoglobin 92.6 L VBG pH Oxyhemoglobin Sodium Potassium Chloride Carbon Dioxide BUN Creatinine Glucose POC Glucose 202 H 218 H Lactic Acid Calcium Ferritin AST Alkaline Phosphatase Magnesium Lactate Dehydrogenase Total Creatine Kinase CK-MB (CK-2) C-Reactive Protein Total Protein Albumin Troponin T HDL Cholesterol Urine WBC (Auto) Urine Creatinine Urine Total Protein Coronavirus (PCR) Crossmatch 06/23/20 06/23/20 06/24/20 16:02 22:22 01:06 WBC RBC Hgb Hct MCHC RDW Lymph % (Auto) [place] % (Auto) Eos % (Auto) Lymph # [place] # Lymph # (Auto) [place] # (Auto) Seg Neutrophils % Seg Neuts % (Manual) Lymphocytes % (Manual) Seg Neutrophils # Seg Neutrophils # Man Lymphocytes # (Manual) Monocytes % (Manual) Eosinophils % (Manual) Monocytes # (Manual) Eosinophils # (Manual) D-Dimer Heparin Anti-Xa Level ABG pH POC ABG pCO2 POC ABG pO2 ABG pO2 ABG HCO3 ABG O2 Saturation ABG Base Excess ABG Hemoglobin ABG Oxyhemoglobin VBG pH Oxyhemoglobin Sodium Potassium Chloride Carbon Dioxide BUN Creatinine Glucose POC Glucose 190 H 166 H 171 H Lactic Acid Calcium Ferritin AST Alkaline Phosphatase Magnesium Lactate Dehydrogenase Total Creatine Kinase CK-MB (CK-2) C-Reactive Protein Total Protein Albumin Troponin T HDL Cholesterol Urine WBC (Auto) Urine Creatinine Urine Total Protein Coronavirus (PCR) Crossmatch 06/24/20 06/24/20 06/24/20 04:48 05:35 11:48 WBC RBC Hgb Hct MCHC RDW Lymph % (Auto) [place] % (Auto) Eos % (Auto) Lymph # [place] # Lymph # (Auto) [place] # (Auto) Seg Neutrophils % Seg Neuts % (Manual) Lymphocytes % (Manual) Seg Neutrophils # Seg Neutrophils # Man Lymphocytes # (Manual) Monocytes % (Manual) Eosinophils % (Manual) Monocytes # (Manual) Eosinophils # (Manual) D-Dimer Heparin Anti-Xa Level ABG pH POC ABG pCO2 POC ABG pO2 ABG pO2 ABG HCO3 ABG O2 Saturation ABG Base Excess ABG Hemoglobin ABG Oxyhemoglobin VBG pH Oxyhemoglobin Sodium Potassium Chloride Carbon Dioxide BUN 75 H Creatinine 2.6 H Glucose 179 H POC Glucose 172 H 153 H Lactic Acid Calcium Ferritin AST Alkaline Phosphatase Magnesium Lactate Dehydrogenase Total Creatine Kinase CK-MB (CK-2) C-Reactive Protein Total Protein Albumin Troponin T HDL Cholesterol Urine WBC (Auto) Urine Creatinine Urine Total Protein Coronavirus (PCR) Crossmatch 06/24/20 06/24/20 06/25/20 16:38 21:52 12:00 WBC RBC Hgb Hct MCHC RDW Lymph % (Auto) [place] % (Auto) Eos % (Auto) Lymph # [place] # Lymph # (Auto) [place] # (Auto) Seg Neutrophils % Seg Neuts % (Manual) Lymphocytes % (Manual) Seg Neutrophils # Seg Neutrophils # Man Lymphocytes # (Manual) Monocytes % (Manual) Eosinophils % (Manual) Monocytes # (Manual) Eosinophils # (Manual) D-Dimer Heparin Anti-Xa Level ABG pH POC ABG pCO2 POC ABG pO2 ABG pO2 ABG HCO3 ABG O2 Saturation ABG Base Excess ABG Hemoglobin ABG Oxyhemoglobin VBG pH Oxyhemoglobin Sodium Potassium Chloride Carbon Dioxide BUN Creatinine Glucose POC Glucose 123 H 115 H 203 H Lactic Acid Calcium Ferritin AST Alkaline Phosphatase Magnesium Lactate Dehydrogenase Total Creatine Kinase CK-MB (CK-2) C-Reactive Protein Total Protein Albumin Troponin T HDL Cholesterol Urine WBC (Auto) Urine Creatinine Urine Total Protein Coronavirus (PCR) Crossmatch 06/25/20 06/25/20 06/25/20 15:43 16:37 23:02 WBC RBC Hgb Hct MCHC RDW Lymph % (Auto) [place] % (Auto) Eos % (Auto) Lymph # [place] # Lymph # (Auto) [place] # (Auto) Seg Neutrophils % Seg Neuts % (Manual) Lymphocytes % (Manual) Seg Neutrophils # Seg Neutrophils # Man Lymphocytes # (Manual) Monocytes % (Manual) Eosinophils % (Manual) Monocytes # (Manual) Eosinophils # (Manual) D-Dimer Heparin Anti-Xa Level ABG pH POC ABG pCO2 POC ABG pO2 ABG pO2 ABG HCO3 ABG O2 Saturation ABG Base Excess ABG Hemoglobin ABG Oxyhemoglobin VBG pH Oxyhemoglobin Sodium Potassium Chloride Carbon Dioxide BUN 71 H Creatinine 1.8 H Glucose 170 H POC Glucose 191 H 126 H Lactic Acid Calcium 8.2 L Ferritin AST Alkaline Phosphatase Magnesium Lactate Dehydrogenase Total Creatine Kinase CK-MB (CK-2) C-Reactive Protein Total Protein Albumin Troponin T HDL Cholesterol Urine WBC (Auto) Urine Creatinine Urine Total Protein Coronavirus (PCR) Crossmatch 06/26/20 06/26/20 06/26/20 06:34 06:34 09:27 WBC RBC 2.41 L Hgb 6.9 L Hct 21.5 L MCHC RDW 16.7 H Lymph % (Auto) 10.9 L [place] % (Auto) 9.6 H Eos % (Auto) Lymph # 0.7 L [place] # Lymph # (Auto) [place] # (Auto) Seg Neutrophils % 75.4 H Seg Neuts % (Manual) Lymphocytes % (Manual) Seg Neutrophils # Seg Neutrophils # Man Lymphocytes # (Manual) Monocytes % (Manual) Eosinophils % (Manual) Monocytes # (Manual) Eosinophils # (Manual) D-Dimer Heparin Anti-Xa Level ABG pH POC ABG pCO2 POC ABG pO2 ABG pO2 ABG HCO3 ABG O2 Saturation ABG Base Excess ABG Hemoglobin ABG Oxyhemoglobin VBG pH Oxyhemoglobin Sodium Potassium Chloride Carbon Dioxide BUN 77 H Creatinine 1.9 H Glucose 190 H POC Glucose Lactic Acid Calcium Ferritin AST Alkaline Phosphatase Magnesium Lactate Dehydrogenase Total Creatine Kinase CK-MB (CK-2) C-Reactive Protein Total Protein Albumin Troponin T HDL Cholesterol Urine WBC (Auto) Urine Creatinine Urine Total Protein Coronavirus (PCR) Crossmatch See Detail 06/26/20 06/26/20 06/26/20 12:15 16:28 17:28 WBC RBC Hgb Hct MCHC RDW Lymph % (Auto) [place] % (Auto) Eos % (Auto) Lymph # [place] # Lymph # (Auto) [place] # (Auto) Seg Neutrophils % Seg Neuts % (Manual) Lymphocytes % (Manual) Seg Neutrophils # Seg Neutrophils # Man Lymphocytes # (Manual) Monocytes % (Manual) Eosinophils % (Manual) Monocytes # (Manual) Eosinophils # (Manual) D-Dimer Heparin Anti-Xa Level ABG pH POC ABG pCO2 POC ABG pO2 ABG pO2 ABG HCO3 ABG O2 Saturation ABG Base Excess ABG Hemoglobin ABG Oxyhemoglobin VBG pH Oxyhemoglobin Sodium Potassium Chloride Carbon Dioxide BUN Creatinine Glucose POC Glucose 187 H 149 H 189 H Lactic Acid Calcium Ferritin AST Alkaline Phosphatase Magnesium Lactate Dehydrogenase Total Creatine Kinase CK-MB (CK-2) C-Reactive Protein Total Protein Albumin Troponin T HDL Cholesterol Urine WBC (Auto) Urine Creatinine Urine Total Protein Coronavirus (PCR) Crossmatch 06/26/20 06/26/20 06/26/20 18:30 18:30 18:30 WBC RBC 2.87 L Hgb 8.2 L Hct 25.9 L MCHC RDW 17.8 H Lymph % (Auto) [place] % (Auto) Eos % (Auto) Lymph # [place] # Lymph # (Auto) [place] # (Auto) Seg Neutrophils % Seg Neuts % (Manual) 83.0 H Lymphocytes % (Manual) 8.0 L Seg Neutrophils # Seg Neutrophils # Man Lymphocytes # (Manual) 0.6 L Monocytes % (Manual) Eosinophils % (Manual) Monocytes # (Manual) Eosinophils # (Manual) D-Dimer Heparin Anti-Xa Level ABG pH POC ABG pCO2 POC ABG pO2 ABG pO2 ABG HCO3 ABG O2 Saturation ABG Base Excess ABG Hemoglobin ABG Oxyhemoglobin VBG pH Oxyhemoglobin Sodium Potassium Chloride Carbon Dioxide BUN 80 H Creatinine 2.1 H Glucose 260 H POC Glucose Lactic Acid 4.30 H* Calcium 8.3 L Ferritin AST Alkaline Phosphatase Magnesium Lactate Dehydrogenase Total Creatine Kinase CK-MB (CK-2) C-Reactive Protein Total Protein Albumin Troponin T HDL Cholesterol Urine WBC (Auto) Urine Creatinine Urine Total Protein Coronavirus (PCR) Crossmatch 06/26/20 06/27/20 06/27/20 18:50 01:00 04:29 WBC RBC Hgb Hct MCHC RDW Lymph % (Auto) [place] % (Auto) Eos % (Auto) Lymph # [place] # Lymph # (Auto) [place] # (Auto) Seg Neutrophils % Seg Neuts % (Manual) Lymphocytes % (Manual) Seg Neutrophils # Seg Neutrophils # Man Lymphocytes # (Manual) Monocytes % (Manual) Eosinophils % (Manual) Monocytes # (Manual) Eosinophils # (Manual) D-Dimer Heparin Anti-Xa Level ABG pH 7.296 L POC ABG pCO2 POC ABG pO2 ABG pO2 116.5 H 200.5 H ABG HCO3 28.4 H ABG O2 Saturation 99.3 H ABG Base Excess 3.7 H ABG Hemoglobin 5.6 L ABG Oxyhemoglobin VBG pH Oxyhemoglobin Sodium Potassium Chloride Carbon Dioxide BUN Creatinine Glucose POC Glucose 123 H Lactic Acid Calcium Ferritin AST Alkaline Phosphatase Magnesium Lactate Dehydrogenase Total Creatine Kinase CK-MB (CK-2) C-Reactive Protein Total Protein Albumin Troponin T HDL Cholesterol Urine WBC (Auto) Urine Creatinine Urine Total Protein Coronavirus (PCR) Crossmatch 06/27/20 06/27/20 06/27/20 05:00 05:00 05:00 WBC RBC 2.75 L Hgb 7.9 L Hct 24.3 L MCHC RDW 17.1 H Lymph % (Auto) 8.5 L [place] % (Auto) 12.6 H Eos % (Auto) Lymph # 0.7 L [place] # 1.0 H Lymph # (Auto) [place] # (Auto) Seg Neutrophils % 77.5 H Seg Neuts % (Manual) Lymphocytes % (Manual) Seg Neutrophils # Seg Neutrophils # Man Lymphocytes # (Manual) Monocytes % (Manual) Eosinophils % (Manual) Monocytes # (Manual) Eosinophils # (Manual) D-Dimer Heparin Anti-Xa Level ABG pH POC ABG pCO2 POC ABG pO2 ABG pO2 ABG HCO3 ABG O2 Saturation ABG Base Excess ABG Hemoglobin ABG Oxyhemoglobin VBG pH Oxyhemoglobin Sodium Potassium Chloride Carbon Dioxide BUN 80 H Creatinine 2.0 H Glucose 129 H POC Glucose Lactic Acid 0.60 L Calcium 7.9 L Ferritin AST Alkaline Phosphatase Magnesium Lactate Dehydrogenase Total Creatine Kinase CK-MB (CK-2) C-Reactive Protein Total Protein Albumin Troponin T HDL Cholesterol Urine WBC (Auto) Urine Creatinine Urine Total Protein Coronavirus (PCR) Crossmatch 06/27/20 06/27/20 06/27/20 05:23 13:46 17:25 WBC RBC Hgb Hct MCHC RDW Lymph % (Auto) [place] % (Auto) Eos % (Auto) Lymph # [place] # Lymph # (Auto) [place] # (Auto) Seg Neutrophils % Seg Neuts % (Manual) Lymphocytes % (Manual) Seg Neutrophils # Seg Neutrophils # Man Lymphocytes # (Manual) Monocytes % (Manual) Eosinophils % (Manual) Monocytes # (Manual) Eosinophils # (Manual) D-Dimer Heparin Anti-Xa Level ABG pH POC ABG pCO2 POC ABG pO2 ABG pO2 ABG HCO3 ABG O2 Saturation ABG Base Excess ABG Hemoglobin ABG Oxyhemoglobin VBG pH Oxyhemoglobin Sodium Potassium Chloride Carbon Dioxide BUN Creatinine Glucose POC Glucose 109 H 158 H 162 H Lactic Acid Calcium Ferritin AST Alkaline Phosphatase Magnesium Lactate Dehydrogenase Total Creatine Kinase CK-MB (CK-2) C-Reactive Protein Total Protein Albumin Troponin T HDL Cholesterol Urine WBC (Auto) Urine Creatinine Urine Total Protein Coronavirus (PCR) Crossmatch 06/27/20 06/27/20 06/28/20 18:43 23:46 04:05 WBC RBC Hgb 7.7 L Hct 22.1 L MCHC RDW Lymph % (Auto) [place] % (Auto) Eos % (Auto) Lymph # [place] # Lymph # (Auto) [place] # (Auto) Seg Neutrophils % Seg Neuts % (Manual) Lymphocytes % (Manual) Seg Neutrophils # Seg Neutrophils # Man Lymphocytes # (Manual) Monocytes % (Manual) Eosinophils % (Manual) Monocytes # (Manual) Eosinophils # (Manual) D-Dimer Heparin Anti-Xa Level ABG pH POC ABG pCO2 POC ABG pO2 ABG pO2 102.7 H ABG HCO3 28.7 H ABG O2 Saturation ABG Base Excess 3.7 H ABG Hemoglobin ABG Oxyhemoglobin VBG pH Oxyhemoglobin Sodium Potassium Chloride Carbon Dioxide BUN Creatinine Glucose POC Glucose 142 H Lactic Acid Calcium Ferritin AST Alkaline Phosphatase Magnesium Lactate Dehydrogenase Total Creatine Kinase CK-MB (CK-2) C-Reactive Protein Total Protein Albumin Troponin T HDL Cholesterol Urine WBC (Auto) Urine Creatinine Urine Total Protein Coronavirus (PCR) Crossmatch 06/28/20 06/28/20 06/28/20 09:47 09:47 12:02 WBC RBC 2.53 L Hgb 7.4 L Hct 22.2 L MCHC RDW 16.8 H Lymph % (Auto) [place] % (Auto) 13.5 H Eos % (Auto) Lymph # 1.1 L [place] # 1.0 H Lymph # (Auto) [place] # (Auto) Seg Neutrophils % Seg Neuts % (Manual) Lymphocytes % (Manual) Seg Neutrophils # Seg Neutrophils # Man Lymphocytes # (Manual) Monocytes % (Manual) Eosinophils % (Manual) Monocytes # (Manual) Eosinophils # (Manual) D-Dimer Heparin Anti-Xa Level ABG pH POC ABG pCO2 POC ABG pO2 ABG pO2 ABG HCO3 ABG O2 Saturation ABG Base Excess ABG Hemoglobin ABG Oxyhemoglobin VBG pH Oxyhemoglobin Sodium Potassium Chloride Carbon Dioxide BUN 80 H Creatinine 1.5 H Glucose 139 H POC Glucose 169 H Lactic Acid Calcium 7.9 L Ferritin AST Alkaline Phosphatase Magnesium Lactate Dehydrogenase Total Creatine Kinase CK-MB (CK-2) C-Reactive Protein Total Protein 5.0 L Albumin 2.1 L Troponin T HDL Cholesterol Urine WBC (Auto) Urine Creatinine Urine Total Protein Coronavirus (PCR) Crossmatch 06/28/20 06/28/20 06/28/20 12:30 12:30 17:24 WBC RBC 2.38 L Hgb 7.3 L Hct 20.9 L MCHC 35 H RDW 16.7 H Lymph % (Auto) [place] % (Auto) Eos % (Auto) Lymph # [place] # Lymph # (Auto) [place] # (Auto) Seg Neutrophils % Seg Neuts % (Manual) Lymphocytes % (Manual) Seg Neutrophils # Seg Neutrophils # Man Lymphocytes # (Manual) Monocytes % (Manual) Eosinophils % (Manual) Monocytes # (Manual) Eosinophils # (Manual) D-Dimer Heparin Anti-Xa Level ABG pH POC ABG pCO2 POC ABG pO2 ABG pO2 ABG HCO3 ABG O2 Saturation ABG Base Excess ABG Hemoglobin ABG Oxyhemoglobin VBG pH Oxyhemoglobin Sodium Potassium Chloride Carbon Dioxide BUN 74 H Creatinine 1.5 H Glucose 143 H POC Glucose 173 H Lactic Acid Calcium 7.5 L Ferritin AST Alkaline Phosphatase Magnesium Lactate Dehydrogenase Total Creatine Kinase CK-MB (CK-2) C-Reactive Protein Total Protein Albumin Troponin T HDL Cholesterol Urine WBC (Auto) Urine Creatinine Urine Total Protein Coronavirus (PCR) Crossmatch 06/29/20 06/29/20 06/29/20 00:02 03:54 04:38 WBC RBC 2.55 L Hgb 7.3 L Hct 22.4 L MCHC RDW 16.4 H Lymph % (Auto) 13.3 L [place] % (Auto) 12.5 H Eos % (Auto) Lymph # 1.1 L [place] # 1.0 H Lymph # (Auto) [place] # (Auto) Seg Neutrophils % Seg Neuts % (Manual) Lymphocytes % (Manual) Seg Neutrophils # Seg Neutrophils # Man Lymphocytes # (Manual) Monocytes % (Manual) Eosinophils % (Manual) Monocytes # (Manual) Eosinophils # (Manual) D-Dimer Heparin Anti-Xa Level ABG pH POC ABG pCO2 POC ABG pO2 ABG pO2 ABG HCO3 26.9 H ABG O2 Saturation ABG Base Excess ABG Hemoglobin 6.9 L ABG Oxyhemoglobin VBG pH Oxyhemoglobin Sodium Potassium Chloride Carbon Dioxide BUN Creatinine Glucose POC Glucose 142 H Lactic Acid Calcium Ferritin AST Alkaline Phosphatase Magnesium Lactate Dehydrogenase Total Creatine Kinase CK-MB (CK-2) C-Reactive Protein Total Protein Albumin Troponin T HDL Cholesterol Urine WBC (Auto) Urine Creatinine Urine Total Protein Coronavirus (PCR) Crossmatch 06/29/20 06/29/20 06/29/20 04:38 05:38 12:25 WBC RBC Hgb Hct MCHC RDW Lymph % (Auto) [place] % (Auto) Eos % (Auto) Lymph # [place] # Lymph # (Auto) [place] # (Auto) Seg Neutrophils % Seg Neuts % (Manual) Lymphocytes % (Manual) Seg Neutrophils # Seg Neutrophils # Man Lymphocytes # (Manual) Monocytes % (Manual) Eosinophils % (Manual) Monocytes # (Manual) Eosinophils # (Manual) D-Dimer Heparin Anti-Xa Level ABG pH POC ABG pCO2 POC ABG pO2 ABG pO2 ABG HCO3 ABG O2 Saturation ABG Base Excess ABG Hemoglobin ABG Oxyhemoglobin VBG pH Oxyhemoglobin Sodium Potassium Chloride 107.8 H Carbon Dioxide BUN 72 H Creatinine 1.4 H Glucose 127 H POC Glucose 122 H 138 H Lactic Acid Calcium 7.4 L Ferritin AST Alkaline Phosphatase Magnesium Lactate Dehydrogenase Total Creatine Kinase CK-MB (CK-2) C-Reactive Protein Total Protein Albumin Troponin T HDL Cholesterol Urine WBC (Auto) Urine Creatinine Urine Total Protein Coronavirus (PCR) Crossmatch 06/29/20 06/29/20 06/29/20 14:45 14:45 14:45 WBC RBC Hgb Hct MCHC RDW Lymph % (Auto) [place] % (Auto) Eos % (Auto) Lymph # [place] # Lymph # (Auto) [place] # (Auto) Seg Neutrophils % Seg Neuts % (Manual) Lymphocytes % (Manual) Seg Neutrophils # Seg Neutrophils # Man Lymphocytes # (Manual) Monocytes % (Manual) Eosinophils % (Manual) Monocytes # (Manual) Eosinophils # (Manual) D-Dimer 2310.15 H Heparin Anti-Xa Level ABG pH POC ABG pCO2 POC ABG pO2 ABG pO2 ABG HCO3 ABG O2 Saturation ABG Base Excess ABG Hemoglobin ABG Oxyhemoglobin VBG pH Oxyhemoglobin Sodium Potassium Chloride Carbon Dioxide BUN Creatinine Glucose POC Glucose Lactic Acid Calcium Ferritin 223.6 H AST Alkaline Phosphatase Magnesium Lactate Dehydrogenase 367 H Total Creatine Kinase CK-MB (CK-2) C-Reactive Protein 3.60 H Total Protein Albumin Troponin T HDL Cholesterol Urine WBC (Auto) Urine Creatinine Urine Total Protein Coronavirus (PCR) Crossmatch 06/29/20 06/29/20 06/29/20 18:27 23:35 Unknown WBC RBC Hgb Hct MCHC RDW Lymph % (Auto) [place] % (Auto) Eos % (Auto) Lymph # [place] # Lymph # (Auto) [place] # (Auto) Seg Neutrophils % Seg Neuts % (Manual) Lymphocytes % (Manual) Seg Neutrophils # Seg Neutrophils # Man Lymphocytes # (Manual) Monocytes % (Manual) Eosinophils % (Manual) Monocytes # (Manual) Eosinophils # (Manual) D-Dimer Heparin Anti-Xa Level ABG pH POC ABG pCO2 POC ABG pO2 ABG pO2 ABG HCO3 ABG O2 Saturation ABG Base Excess ABG Hemoglobin ABG Oxyhemoglobin VBG pH Oxyhemoglobin Sodium Potassium Chloride Carbon Dioxide BUN Creatinine Glucose POC Glucose 112 H 140 H Lactic Acid Calcium Ferritin AST Alkaline Phosphatase Magnesium Lactate Dehydrogenase Total Creatine Kinase CK-MB (CK-2) C-Reactive Protein Total Protein Albumin Troponin T HDL Cholesterol Urine WBC (Auto) Urine Creatinine Urine Total Protein Coronavirus (PCR) Positive A Crossmatch 06/30/20 06/30/20 06/30/20 04:10 04:10 06:09 WBC RBC 2.44 L Hgb 7.1 L Hct 21.5 L MCHC RDW 16.6 H Lymph % (Auto) 11.0 L [place] % (Auto) 10.8 H Eos % (Auto) Lymph # 0.9 L [place] # 0.9 H Lymph # (Auto) [place] # (Auto) Seg Neutrophils % 73.7 H Seg Neuts % (Manual) Lymphocytes % (Manual) Seg Neutrophils # Seg Neutrophils # Man Lymphocytes # (Manual) Monocytes % (Manual) Eosinophils % (Manual) Monocytes # (Manual) Eosinophils # (Manual) D-Dimer Heparin Anti-Xa Level ABG pH POC ABG pCO2 POC ABG pO2 ABG pO2 ABG HCO3 ABG O2 Saturation ABG Base Excess ABG Hemoglobin ABG Oxyhemoglobin VBG pH Oxyhemoglobin Sodium Potassium Chloride 109.1 H Carbon Dioxide BUN 74 H Creatinine 1.3 H Glucose 191 H POC Glucose 187 H Lactic Acid Calcium 7.8 L Ferritin AST Alkaline Phosphatase Magnesium Lactate Dehydrogenase Total Creatine Kinase CK-MB (CK-2) C-Reactive Protein Total Protein Albumin Troponin T HDL Cholesterol Urine WBC (Auto) Urine Creatinine Urine Total Protein Coronavirus (PCR) Crossmatch 06/30/20 06/30/20 06/30/20 12:04 17:43 23:41 WBC RBC Hgb Hct MCHC RDW Lymph % (Auto) [place] % (Auto) Eos % (Auto) Lymph # [place] # Lymph # (Auto) [place] # (Auto) Seg Neutrophils % Seg Neuts % (Manual) Lymphocytes % (Manual) Seg Neutrophils # Seg Neutrophils # Man Lymphocytes # (Manual) Monocytes % (Manual) Eosinophils % (Manual) Monocytes # (Manual) Eosinophils # (Manual) D-Dimer Heparin Anti-Xa Level ABG pH POC ABG pCO2 POC ABG pO2 ABG pO2 ABG HCO3 ABG O2 Saturation ABG Base Excess ABG Hemoglobin ABG Oxyhemoglobin VBG pH Oxyhemoglobin Sodium Potassium Chloride Carbon Dioxide BUN Creatinine Glucose POC Glucose 112 H 177 H 143 H Lactic Acid Calcium Ferritin AST Alkaline Phosphatase Magnesium Lactate Dehydrogenase Total Creatine Kinase CK-MB (CK-2) C-Reactive Protein Total Protein Albumin Troponin T HDL Cholesterol Urine WBC (Auto) Urine Creatinine Urine Total Protein Coronavirus (PCR) Crossmatch 07/01/20 07/01/20 07/01/20 05:02 05:52 06:01 WBC 12.6 H RBC 2.95 L Hgb 8.2 L Hct 26.0 L MCHC RDW 16.9 H Lymph % (Auto) [place] % (Auto) Eos % (Auto) Lymph # [place] # Lymph # (Auto) [place] # (Auto) Seg Neutrophils % Seg Neuts % (Manual) Lymphocytes % (Manual) Seg Neutrophils # Seg Neutrophils # Man 8.6 H Lymphocytes # (Manual) Monocytes % (Manual) Eosinophils % (Manual) 5.0 H Monocytes # (Manual) Eosinophils # (Manual) 0.6 H D-Dimer Heparin Anti-Xa Level ABG pH POC ABG pCO2 POC ABG pO2 ABG pO2 ABG HCO3 ABG O2 Saturation ABG Base Excess ABG Hemoglobin 8.2 L ABG Oxyhemoglobin VBG pH Oxyhemoglobin Sodium Potassium Chloride Carbon Dioxide BUN Creatinine Glucose POC Glucose 129 H Lactic Acid Calcium Ferritin AST Alkaline Phosphatase Magnesium Lactate Dehydrogenase Total Creatine Kinase CK-MB (CK-2) C-Reactive Protein Total Protein Albumin Troponin T HDL Cholesterol Urine WBC (Auto) Urine Creatinine Urine Total Protein Coronavirus (PCR) Crossmatch 07/01/20 07/01/20 07/01/20 06:01 06:01 06:08 WBC RBC Hgb Hct MCHC RDW Lymph % (Auto) [place] % (Auto) Eos % (Auto) Lymph # [place] # Lymph # (Auto) [place] # (Auto) Seg Neutrophils % Seg Neuts % (Manual) Lymphocytes % (Manual) Seg Neutrophils # Seg Neutrophils # Man Lymphocytes # (Manual) Monocytes % (Manual) Eosinophils % (Manual) Monocytes # (Manual) Eosinophils # (Manual) D-Dimer Heparin Anti-Xa Level ABG pH POC ABG pCO2 POC ABG pO2 ABG pO2 ABG HCO3 ABG O2 Saturation ABG Base Excess ABG Hemoglobin ABG Oxyhemoglobin VBG pH Oxyhemoglobin Sodium 147 H Potassium Chloride 108.0 H Carbon Dioxide BUN 71 H Creatinine 1.3 H Glucose 193 H POC Glucose 192 H Lactic Acid Calcium 8.1 L Ferritin AST Alkaline Phosphatase Magnesium Lactate Dehydrogenase Total Creatine Kinase 300 H CK-MB (CK-2) C-Reactive Protein Total Protein Albumin Troponin T 0.067 H HDL Cholesterol 61 H Urine WBC (Auto) Urine Creatinine Urine Total Protein Coronavirus (PCR) Crossmatch 07/01/20 07/01/20 07/02/20 12:23 17:40 00:18 WBC RBC Hgb Hct MCHC RDW Lymph % (Auto) [place] % (Auto) Eos % (Auto) Lymph # [place] # Lymph # (Auto) [place] # (Auto) Seg Neutrophils % Seg Neuts % (Manual) Lymphocytes % (Manual) Seg Neutrophils # Seg Neutrophils # Man Lymphocytes # (Manual) Monocytes % (Manual) Eosinophils % (Manual) Monocytes # (Manual) Eosinophils # (Manual) D-Dimer Heparin Anti-Xa Level ABG pH POC ABG pCO2 POC ABG pO2 ABG pO2 ABG HCO3 ABG O2 Saturation ABG Base Excess ABG Hemoglobin ABG Oxyhemoglobin VBG pH Oxyhemoglobin Sodium Potassium Chloride Carbon Dioxide BUN Creatinine Glucose POC Glucose 111 H 135 H 145 H Lactic Acid Calcium Ferritin AST Alkaline Phosphatase Magnesium Lactate Dehydrogenase Total Creatine Kinase CK-MB (CK-2) C-Reactive Protein Total Protein Albumin Troponin T HDL Cholesterol Urine WBC (Auto) Urine Creatinine Urine Total Protein Coronavirus (PCR) Crossmatch 07/02/20 07/02/20 07/02/20 04:11 04:23 05:54 WBC RBC Hgb Hct MCHC RDW Lymph % (Auto) [place] % (Auto) Eos % (Auto) Lymph # [place] # Lymph # (Auto) [place] # (Auto) Seg Neutrophils % Seg Neuts % (Manual) Lymphocytes % (Manual) Seg Neutrophils # Seg Neutrophils # Man Lymphocytes # (Manual) Monocytes % (Manual) Eosinophils % (Manual) Monocytes # (Manual) Eosinophils # (Manual) D-Dimer Heparin Anti-Xa Level ABG pH POC ABG pCO2 POC ABG pO2 ABG pO2 ABG HCO3 ABG O2 Saturation ABG Base Excess ABG Hemoglobin 5.4 L ABG Oxyhemoglobin VBG pH Oxyhemoglobin Sodium Potassium Chloride 108.6 H Carbon Dioxide BUN 72 H Creatinine Glucose 112 H POC Glucose 137 H Lactic Acid Calcium 7.8 L Ferritin AST Alkaline Phosphatase Magnesium Lactate Dehydrogenase Total Creatine Kinase CK-MB (CK-2) C-Reactive Protein Total Protein Albumin Troponin T HDL Cholesterol Urine WBC (Auto) Urine Creatinine Urine Total Protein Coronavirus (PCR) Crossmatch 07/02/20 07/02/20 07/02/20 11:38 18:04 23:59 WBC RBC Hgb Hct MCHC RDW Lymph % (Auto) [place] % (Auto) Eos % (Auto) Lymph # [place] # Lymph # (Auto) [place] # (Auto) Seg Neutrophils % Seg Neuts % (Manual) Lymphocytes % (Manual) Seg Neutrophils # Seg Neutrophils # Man Lymphocytes # (Manual) Monocytes % (Manual) Eosinophils % (Manual) Monocytes # (Manual) Eosinophils # (Manual) D-Dimer Heparin Anti-Xa Level ABG pH POC ABG pCO2 POC ABG pO2 ABG pO2 ABG HCO3 ABG O2 Saturation ABG Base Excess ABG Hemoglobin ABG Oxyhemoglobin VBG pH Oxyhemoglobin Sodium Potassium Chloride Carbon Dioxide BUN Creatinine Glucose POC Glucose 128 H 135 H 156 H Lactic Acid Calcium Ferritin AST Alkaline Phosphatase Magnesium Lactate Dehydrogenase Total Creatine Kinase CK-MB (CK-2) C-Reactive Protein Total Protein Albumin Troponin T HDL Cholesterol Urine WBC (Auto) Urine Creatinine Urine Total Protein Coronavirus (PCR) Crossmatch 07/03/20 07/03/20 07/03/20 03:49 06:00 11:31 WBC RBC Hgb Hct MCHC RDW Lymph % (Auto) [place] % (Auto) Eos % (Auto) Lymph # [place] # Lymph # (Auto) [place] # (Auto) Seg Neutrophils % Seg Neuts % (Manual) Lymphocytes % (Manual) Seg Neutrophils # Seg Neutrophils # Man Lymphocytes # (Manual) Monocytes % (Manual) Eosinophils % (Manual) Monocytes # (Manual) Eosinophils # (Manual) D-Dimer Heparin Anti-Xa Level ABG pH POC ABG pCO2 POC ABG pO2 ABG pO2 121.0 H ABG HCO3 ABG O2 Saturation ABG Base Excess ABG Hemoglobin 8.5 L ABG Oxyhemoglobin VBG pH Oxyhemoglobin Sodium Potassium Chloride Carbon Dioxide BUN Creatinine Glucose POC Glucose 135 H 141 H Lactic Acid Calcium Ferritin AST Alkaline Phosphatase Magnesium Lactate Dehydrogenase Total Creatine Kinase CK-MB (CK-2) C-Reactive Protein Total Protein Albumin Troponin T HDL Cholesterol Urine WBC (Auto) Urine Creatinine Urine Total Protein Coronavirus (PCR) Crossmatch 07/03/20 07/03/20 07/04/20 16:07 17:40 05:49 WBC RBC Hgb Hct MCHC RDW Lymph % (Auto) [place] % (Auto) Eos % (Auto) Lymph # [place] # Lymph # (Auto) [place] # (Auto) Seg Neutrophils % Seg Neuts % (Manual) Lymphocytes % (Manual) Seg Neutrophils # Seg Neutrophils # Man Lymphocytes # (Manual) Monocytes % (Manual) Eosinophils % (Manual) Monocytes # (Manual) Eosinophils # (Manual) D-Dimer Heparin Anti-Xa Level ABG pH POC ABG pCO2 POC ABG pO2 ABG pO2 126.9 H ABG HCO3 ABG O2 Saturation ABG Base Excess ABG Hemoglobin 8.1 L ABG Oxyhemoglobin VBG pH Oxyhemoglobin Sodium Potassium Chloride Carbon Dioxide BUN Creatinine Glucose POC Glucose 120 H 128 H Lactic Acid Calcium Ferritin AST Alkaline Phosphatase Magnesium Lactate Dehydrogenase Total Creatine Kinase CK-MB (CK-2) C-Reactive Protein Total Protein Albumin Troponin T HDL Cholesterol Urine WBC (Auto) Urine Creatinine Urine Total Protein Coronavirus (PCR) Crossmatch 07/04/20 07/04/20 07/05/20 11:54 18:00 00:07 WBC RBC Hgb Hct MCHC RDW Lymph % (Auto) [place] % (Auto) Eos % (Auto) Lymph # [place] # Lymph # (Auto) [place] # (Auto) Seg Neutrophils % Seg Neuts % (Manual) Lymphocytes % (Manual) Seg Neutrophils # Seg Neutrophils # Man Lymphocytes # (Manual) Monocytes % (Manual) Eosinophils % (Manual) Monocytes # (Manual) Eosinophils # (Manual) D-Dimer Heparin Anti-Xa Level ABG pH POC ABG pCO2 POC ABG pO2 ABG pO2 ABG HCO3 ABG O2 Saturation ABG Base Excess ABG Hemoglobin ABG Oxyhemoglobin VBG pH Oxyhemoglobin Sodium Potassium Chloride Carbon Dioxide BUN Creatinine Glucose POC Glucose 168 H 133 H 121 H Lactic Acid Calcium Ferritin AST Alkaline Phosphatase Magnesium Lactate Dehydrogenase Total Creatine Kinase CK-MB (CK-2) C-Reactive Protein Total Protein Albumin Troponin T HDL Cholesterol Urine WBC (Auto) Urine Creatinine Urine Total Protein Coronavirus (PCR) Crossmatch 07/05/20 07/05/20 07/05/20 01:12 02:30 12:09 WBC RBC 2.35 L Hgb 6.9 L Hct 21.1 L MCHC RDW 16.8 H Lymph % (Auto) [place] % (Auto) Eos % (Auto) Lymph # [place] # Lymph # (Auto) [place] # (Auto) Seg Neutrophils % Seg Neuts % (Manual) 74.0 H Lymphocytes % (Manual) 12.0 L Seg Neutrophils # Seg Neutrophils # Man 8.0 H Lymphocytes # (Manual) Monocytes % (Manual) 9.0 H Eosinophils % (Manual) Monocytes # (Manual) 1.0 H Eosinophils # (Manual) D-Dimer Heparin Anti-Xa Level ABG pH POC ABG pCO2 POC ABG pO2 ABG pO2 ABG HCO3 ABG O2 Saturation ABG Base Excess ABG Hemoglobin ABG Oxyhemoglobin VBG pH Oxyhemoglobin Sodium Potassium Chloride Carbon Dioxide BUN Creatinine Glucose POC Glucose 132 H Lactic Acid Calcium Ferritin AST Alkaline Phosphatase Magnesium Lactate Dehydrogenase Total Creatine Kinase CK-MB (CK-2) C-Reactive Protein Total Protein Albumin Troponin T HDL Cholesterol Urine WBC (Auto) Urine Creatinine Urine Total Protein Coronavirus (PCR) Crossmatch See Detail 07/05/20 07/05/20 07/05/20 13:05 18:04 23:13 WBC RBC 2.57 L Hgb 7.7 L Hct 23.0 L MCHC RDW 16.9 H Lymph % (Auto) [place] % (Auto) Eos % (Auto) Lymph # [place] # Lymph # (Auto) [place] # (Auto) Seg Neutrophils % Seg Neuts % (Manual) Lymphocytes % (Manual) Seg Neutrophils # Seg Neutrophils # Man Lymphocytes # (Manual) Monocytes % (Manual) Eosinophils % (Manual) Monocytes # (Manual) Eosinophils # (Manual) D-Dimer Heparin Anti-Xa Level ABG pH 7.32 L POC ABG pCO2 POC ABG pO2 ABG pO2 78.3 L ABG HCO3 ABG O2 Saturation ABG Base Excess -2.6 L ABG Hemoglobin 7.3 L ABG Oxyhemoglobin VBG pH Oxyhemoglobin Sodium Potassium Chloride Carbon Dioxide BUN Creatinine Glucose POC Glucose 160 H Lactic Acid Calcium Ferritin AST Alkaline Phosphatase Magnesium Lactate Dehydrogenase Total Creatine Kinase CK-MB (CK-2) C-Reactive Protein Total Protein Albumin Troponin T HDL Cholesterol Urine WBC (Auto) Urine Creatinine Urine Total Protein Coronavirus (PCR) Crossmatch 07/05/20 07/05/20 07/06/20 23:13 23:43 13:20 WBC RBC Hgb Hct MCHC RDW Lymph % (Auto) [place] % (Auto) Eos % (Auto) Lymph # [place] # Lymph # (Auto) [place] # (Auto) Seg Neutrophils % Seg Neuts % (Manual) Lymphocytes % (Manual) Seg Neutrophils # Seg Neutrophils # Man Lymphocytes # (Manual) Monocytes % (Manual) Eosinophils % (Manual) Monocytes # (Manual) Eosinophils # (Manual) D-Dimer Heparin Anti-Xa Level ABG pH POC ABG pCO2 POC ABG pO2 ABG pO2 ABG HCO3 ABG O2 Saturation ABG Base Excess ABG Hemoglobin ABG Oxyhemoglobin VBG pH Oxyhemoglobin Sodium Potassium Chloride Carbon Dioxide 20 L BUN 80 H Creatinine 2.4 H D Glucose 124 H POC Glucose 121 H Lactic Acid Calcium 7.6 L Ferritin AST Alkaline Phosphatase Magnesium Lactate Dehydrogenase Total Creatine Kinase CK-MB (CK-2) C-Reactive Protein Total Protein Albumin Troponin T HDL Cholesterol Urine WBC (Auto) Urine Creatinine 33.3 H Urine Total Protein Coronavirus (PCR) Crossmatch 07/06/20 07/06/20 07/07/20 14:48 17:28 00:12 WBC RBC Hgb Hct MCHC RDW Lymph % (Auto) [place] % (Auto) Eos % (Auto) Lymph # [place] # Lymph # (Auto) [place] # (Auto) Seg Neutrophils % Seg Neuts % (Manual) Lymphocytes % (Manual) Seg Neutrophils # Seg Neutrophils # Man Lymphocytes # (Manual) Monocytes % (Manual) Eosinophils % (Manual) Monocytes # (Manual) Eosinophils # (Manual) D-Dimer Heparin Anti-Xa Level ABG pH POC ABG pCO2 POC ABG pO2 ABG pO2 ABG HCO3 ABG O2 Saturation ABG Base Excess ABG Hemoglobin ABG Oxyhemoglobin VBG pH Oxyhemoglobin Sodium 136 L Potassium 5.5 H Chloride Carbon Dioxide 19 L BUN 82 H Creatinine 2.5 H Glucose 113 H POC Glucose 133 H 154 H Lactic Acid Calcium 7.7 L Ferritin AST Alkaline Phosphatase Magnesium Lactate Dehydrogenase Total Creatine Kinase CK-MB (CK-2) C-Reactive Protein Total Protein Albumin Troponin T HDL Cholesterol Urine WBC (Auto) Urine Creatinine Urine Total Protein Coronavirus (PCR) Crossmatch 07/07/20 07/07/20 07/07/20 04:15 04:15 05:31 WBC RBC 2.28 L Hgb 6.8 L Hct 20.7 L MCHC RDW 16.8 H Lymph % (Auto) [place] % (Auto) Eos % (Auto) Lymph # [place] # Lymph # (Auto) [place] # (Auto) Seg Neutrophils % Seg Neuts % (Manual) Lymphocytes % (Manual) 13.0 L Seg Neutrophils # Seg Neutrophils # Man Lymphocytes # (Manual) 1.0 L Monocytes % (Manual) 11.0 H Eosinophils % (Manual) Monocytes # (Manual) 0.9 H Eosinophils # (Manual) D-Dimer Heparin Anti-Xa Level ABG pH POC ABG pCO2 POC ABG pO2 ABG pO2 ABG HCO3 ABG O2 Saturation ABG Base Excess ABG Hemoglobin ABG Oxyhemoglobin VBG pH Oxyhemoglobin Sodium Potassium Chloride Carbon Dioxide BUN Creatinine Glucose POC Glucose 135 H Lactic Acid Calcium Ferritin AST Alkaline Phosphatase Magnesium 2.50 H Lactate Dehydrogenase Total Creatine Kinase CK-MB (CK-2) C-Reactive Protein Total Protein Albumin Troponin T HDL Cholesterol Urine WBC (Auto) Urine Creatinine Urine Total Protein Coronavirus (PCR) Crossmatch 07/07/20 07/07/20 07/07/20 12:31 13:22 17:55 WBC RBC Hgb Hct MCHC RDW Lymph % (Auto) [place] % (Auto) Eos % (Auto) Lymph # [place] # Lymph # (Auto) [place] # (Auto) Seg Neutrophils % Seg Neuts % (Manual) Lymphocytes % (Manual) Seg Neutrophils # Seg Neutrophils # Man Lymphocytes # (Manual) Monocytes % (Manual) Eosinophils % (Manual) Monocytes # (Manual) Eosinophils # (Manual) D-Dimer Heparin Anti-Xa Level ABG pH POC ABG pCO2 POC ABG pO2 ABG pO2 ABG HCO3 ABG O2 Saturation ABG Base Excess ABG Hemoglobin ABG Oxyhemoglobin VBG pH Oxyhemoglobin Sodium Potassium 5.6 H Chloride Carbon Dioxide BUN 86 H Creatinine 2.9 H Glucose 127 H POC Glucose 131 H 136 H Lactic Acid Calcium 8.1 L Ferritin AST Alkaline Phosphatase Magnesium Lactate Dehydrogenase Total Creatine Kinase CK-MB (CK-2) C-Reactive Protein Total Protein Albumin Troponin T HDL Cholesterol Urine WBC (Auto) Urine Creatinine Urine Total Protein Coronavirus (PCR) Crossmatch 07/07/20 07/08/20 07/08/20 23:33 04:14 04:14 WBC RBC 3.28 L Hgb 9.7 L Hct 28.9 L D MCHC RDW 16.4 H Lymph % (Auto) 10.3 L [place] % (Auto) 10.0 H Eos % (Auto) Lymph # [place] # Lymph # (Auto) 1.1 L [place] # (Auto) 1.1 H Seg Neutrophils % 77.2 H Seg Neuts % (Manual) Lymphocytes % (Manual) Seg Neutrophils # 8.2 H Seg Neutrophils # Man Lymphocytes # (Manual) Monocytes % (Manual) Eosinophils % (Manual) Monocytes # (Manual) Eosinophils # (Manual) D-Dimer Heparin Anti-Xa Level ABG pH POC ABG pCO2 POC ABG pO2 ABG pO2 ABG HCO3 ABG O2 Saturation ABG Base Excess ABG Hemoglobin ABG Oxyhemoglobin VBG pH Oxyhemoglobin Sodium 136 L Potassium Chloride Carbon Dioxide BUN 84 H Creatinine 2.8 H Glucose 109 H POC Glucose 159 H Lactic Acid Calcium 8.1 L Ferritin AST Alkaline Phosphatase Magnesium 2.50 H Lactate Dehydrogenase Total Creatine Kinase CK-MB (CK-2) C-Reactive Protein Total Protein Albumin Troponin T HDL Cholesterol Urine WBC (Auto) Urine Creatinine Urine Total Protein Coronavirus (PCR) Crossmatch 07/08/20 07/08/20 07/08/20 12:10 18:10 23:50 WBC RBC Hgb Hct MCHC RDW Lymph % (Auto) [place] % (Auto) Eos % (Auto) Lymph # [place] # Lymph # (Auto) [place] # (Auto) Seg Neutrophils % Seg Neuts % (Manual) Lymphocytes % (Manual) Seg Neutrophils # Seg Neutrophils # Man Lymphocytes # (Manual) Monocytes % (Manual) Eosinophils % (Manual) Monocytes # (Manual) Eosinophils # (Manual) D-Dimer Heparin Anti-Xa Level ABG pH POC ABG pCO2 POC ABG pO2 ABG pO2 ABG HCO3 ABG O2 Saturation ABG Base Excess ABG Hemoglobin ABG Oxyhemoglobin VBG pH Oxyhemoglobin Sodium Potassium Chloride Carbon Dioxide BUN Creatinine Glucose POC Glucose 108 H 125 H 141 H Lactic Acid Calcium Ferritin AST Alkaline Phosphatase Magnesium Lactate Dehydrogenase Total Creatine Kinase CK-MB (CK-2) C-Reactive Protein Total Protein Albumin Troponin T HDL Cholesterol Urine WBC (Auto) Urine Creatinine Urine Total Protein Coronavirus (PCR) Crossmatch 07/09/20 07/09/20 07/09/20 05:39 11:57 17:56 WBC RBC Hgb Hct MCHC RDW Lymph % (Auto) [place] % (Auto) Eos % (Auto) Lymph # [place] # Lymph # (Auto) [place] # (Auto) Seg Neutrophils % Seg Neuts % (Manual) Lymphocytes % (Manual) Seg Neutrophils # Seg Neutrophils # Man Lymphocytes # (Manual) Monocytes % (Manual) Eosinophils % (Manual) Monocytes # (Manual) Eosinophils # (Manual) D-Dimer Heparin Anti-Xa Level ABG pH POC ABG pCO2 POC ABG pO2 ABG pO2 ABG HCO3 ABG O2 Saturation ABG Base Excess ABG Hemoglobin ABG Oxyhemoglobin VBG pH Oxyhemoglobin Sodium Potassium Chloride Carbon Dioxide BUN Creatinine Glucose POC Glucose 121 H 123 H 119 H Lactic Acid Calcium Ferritin AST Alkaline Phosphatase Magnesium Lactate Dehydrogenase Total Creatine Kinase CK-MB (CK-2) C-Reactive Protein Total Protein Albumin Troponin T HDL Cholesterol Urine WBC (Auto) Urine Creatinine Urine Total Protein Coronavirus (PCR) Crossmatch 07/10/20 07/10/20 07/10/20 00:29 05:50 10:41 WBC RBC 3.11 L Hgb 9.2 L Hct 27.6 L MCHC RDW 16.6 H Lymph % (Auto) [place] % (Auto) Eos % (Auto) Lymph # [place] # Lymph # (Auto) [place] # (Auto) Seg Neutrophils % Seg Neuts % (Manual) 78.0 H Lymphocytes % (Manual) 11.0 L Seg Neutrophils # Seg Neutrophils # Man Lymphocytes # (Manual) 1.0 L Monocytes % (Manual) Eosinophils % (Manual) Monocytes # (Manual) Eosinophils # (Manual) D-Dimer Heparin Anti-Xa Level ABG pH POC ABG pCO2 POC ABG pO2 ABG pO2 ABG HCO3 ABG O2 Saturation ABG Base Excess ABG Hemoglobin ABG Oxyhemoglobin VBG pH Oxyhemoglobin Sodium Potassium Chloride Carbon Dioxide BUN Creatinine Glucose POC Glucose 122 H 124 H Lactic Acid Calcium Ferritin AST Alkaline Phosphatase Magnesium Lactate Dehydrogenase Total Creatine Kinase CK-MB (CK-2) C-Reactive Protein Total Protein Albumin Troponin T HDL Cholesterol Urine WBC (Auto) Urine Creatinine Urine Total Protein Coronavirus (PCR) Crossmatch 07/10/20 07/10/20 07/10/20 10:41 12:25 18:10 WBC RBC Hgb Hct MCHC RDW Lymph % (Auto) [place] % (Auto) Eos % (Auto) Lymph # [place] # Lymph # (Auto) [place] # (Auto) Seg Neutrophils % Seg Neuts % (Manual) Lymphocytes % (Manual) Seg Neutrophils # Seg Neutrophils # Man Lymphocytes # (Manual) Monocytes % (Manual) Eosinophils % (Manual) Monocytes # (Manual) Eosinophils # (Manual) D-Dimer Heparin Anti-Xa Level ABG pH POC ABG pCO2 POC ABG pO2 ABG pO2 ABG HCO3 ABG O2 Saturation ABG Base Excess ABG Hemoglobin ABG Oxyhemoglobin VBG pH Oxyhemoglobin Sodium Potassium Chloride Carbon Dioxide BUN 85 H Creatinine 2.5 H Glucose 133 H POC Glucose 131 H 134 H Lactic Acid Calcium Ferritin AST Alkaline Phosphatase 131 H Magnesium Lactate Dehydrogenase Total Creatine Kinase CK-MB (CK-2) C-Reactive Protein Total Protein 5.2 L Albumin 1.6 L Troponin T HDL Cholesterol Urine WBC (Auto) Urine Creatinine Urine Total Protein Coronavirus (PCR) Crossmatch 07/11/20 07/11/20 07/11/20 00:28 05:57 12:14 WBC RBC Hgb Hct MCHC RDW Lymph % (Auto) [place] % (Auto) Eos % (Auto) Lymph # [place] # Lymph # (Auto) [place] # (Auto) Seg Neutrophils % Seg Neuts % (Manual) Lymphocytes % (Manual) Seg Neutrophils # Seg Neutrophils # Man Lymphocytes # (Manual) Monocytes % (Manual) Eosinophils % (Manual) Monocytes # (Manual) Eosinophils # (Manual) D-Dimer Heparin Anti-Xa Level ABG pH POC ABG pCO2 POC ABG pO2 ABG pO2 ABG HCO3 ABG O2 Saturation ABG Base Excess ABG Hemoglobin ABG Oxyhemoglobin VBG pH Oxyhemoglobin Sodium Potassium Chloride Carbon Dioxide BUN Creatinine Glucose POC Glucose 140 H 148 H 147 H Lactic Acid Calcium Ferritin AST Alkaline Phosphatase Magnesium Lactate Dehydrogenase Total Creatine Kinase CK-MB (CK-2) C-Reactive Protein Total Protein Albumin Troponin T HDL Cholesterol Urine WBC (Auto) Urine Creatinine Urine Total Protein Coronavirus (PCR) Crossmatch 07/11/20 07/11/20 07/12/20 17:28 23:49 05:14 WBC RBC 2.78 L Hgb 8.5 L Hct 25.3 L MCHC RDW 16.7 H Lymph % (Auto) [place] % (Auto) Eos % (Auto) Lymph # [place] # Lymph # (Auto) [place] # (Auto) Seg Neutrophils % Seg Neuts % (Manual) 81.0 H Lymphocytes % (Manual) 6.0 L Seg Neutrophils # Seg Neutrophils # Man Lymphocytes # (Manual) 0.6 L Monocytes % (Manual) 8.0 H Eosinophils % (Manual) Monocytes # (Manual) Eosinophils # (Manual) D-Dimer Heparin Anti-Xa Level ABG pH POC ABG pCO2 POC ABG pO2 ABG pO2 ABG HCO3 ABG O2 Saturation ABG Base Excess ABG Hemoglobin ABG Oxyhemoglobin VBG pH Oxyhemoglobin Sodium Potassium Chloride Carbon Dioxide BUN Creatinine Glucose POC Glucose 175 H 114 H Lactic Acid Calcium Ferritin AST Alkaline Phosphatase Magnesium Lactate Dehydrogenase Total Creatine Kinase CK-MB (CK-2) C-Reactive Protein Total Protein Albumin Troponin T HDL Cholesterol Urine WBC (Auto) Urine Creatinine Urine Total Protein Coronavirus (PCR) Crossmatch 07/12/20 07/12/20 07/12/20 05:14 05:44 11:32 WBC RBC Hgb Hct MCHC RDW Lymph % (Auto) [place] % (Auto) Eos % (Auto) Lymph # [place] # Lymph # (Auto) [place] # (Auto) Seg Neutrophils % Seg Neuts % (Manual) Lymphocytes % (Manual) Seg Neutrophils # Seg Neutrophils # Man Lymphocytes # (Manual) Monocytes % (Manual) Eosinophils % (Manual) Monocytes # (Manual) Eosinophils # (Manual) D-Dimer Heparin Anti-Xa Level ABG pH POC ABG pCO2 POC ABG pO2 ABG pO2 ABG HCO3 ABG O2 Saturation ABG Base Excess ABG Hemoglobin ABG Oxyhemoglobin VBG pH Oxyhemoglobin Sodium Potassium Chloride Carbon Dioxide BUN 79 H Creatinine 2.2 H Glucose 131 H POC Glucose 116 H 132 H Lactic Acid Calcium Ferritin AST Alkaline Phosphatase Magnesium Lactate Dehydrogenase Total Creatine Kinase CK-MB (CK-2) C-Reactive Protein Total Protein Albumin Troponin T HDL Cholesterol Urine WBC (Auto) Urine Creatinine Urine Total Protein Coronavirus (PCR) Crossmatch Chest x-ray: other (none today) Allied health notes reviewed: nursing
[2020-07-12] MEDS: INSULIN GLARGINE 100 UNITS/ML SUB-Q SCH (22:17)
[2020-07-13] MEDS: INSULIN LISPRO 100 UNIT/ML VIAL 3 mL SUB-Q SCH ×4 (00:58→18:23)
[2020-07-13 05:27] LABS: Hematocrit 25.7 % (30.3-42.9); Hemoglobin 8.4 gm/dl (10.1-14.3); Mean Corpuscular HGB Conc 33 % (30-34); Mean Corpuscular Volume 90 fl (79-97); Platelet Count 298 K/mm3 (140-440); Red Blood Count 2.86 M/mm3 (3.65-5.03); Red Cell Distribution Width 16.8 % (13.2-15.2)
[2020-07-13 05:42] LABS: Calcium 8.7 mg/dL (8.4-10.2)
[2020-07-13] MEDS: hydrALAZINE 25 MG TAB PO SCH ×3 (06:38→21:04)
[2020-07-13] MEDS: HEPARIN 5,000 UNIT/1 ML VIAL SUB-Q SCH ×3 (06:39→21:04)
--- NOTE | 2020-07-13 07:59 | Consultation ---
History of Present Illness Consult date: 07/13/20 Chief complaint: vent - History of present illness History of present illness: 64-year-old female with history of hypertension, CHF, diabetes, obesity ventilation syndrome who presented to the hospital on 05/28/2020. She was broug ht to the hospital by EMS in PEA arrest. She was treated with ACLS protocol with ROSC. The patient was intubated in the emergency room and has remained on the ventilator since. She has been treated for pneumonia secondary to COVID. Despite being off sedation, the patient has remained unresponsive on the ventilator. While in the hospital the patient has had cardiac arrest x2. Surgery is consulted for evaluation for trach and PEG. She has been afebrile. She is tolerating tube feeds via NG tube. She is not on pressors. COVID testing x2 is positive. Past History Past Medical History: diabetes, heart failure, hypertension, other (See HPI) Past Surgical History: No surgical history, Other (Reviewed) Social history: . denies: smoking, alcohol abuse, prescription drug abuse Family history: diabetes, hypertension Medications and Allergies Allergies Allergy/AdvReac Type Severity Reaction Status Date / Time No Known Allergies Allergy Verified 01/21/20 12:28 Home Medications Medication Instructions Recorded Confirmed Last Taken Type AtorvaSTATin [Lipitor] 20 mg PO QHS 05/12/20 05/29/20 Unknown History lisinopriL [Zestril TAB] 40 mg PO QDAY 05/12/20 05/29/20 Unknown History metFORMIN [Glucophage] 850 mg PO BID 05/12/20 05/29/20 Unknown History Acetaminophen [Acetaminophen TAB] 650 mg PO Q4H PRN tablet 05/13/20 05/29/20 Unknown Rx Dicyclomine [Bentyl] 20 mg PO BID #20 tablet 05/13/20 05/29/20 Unknown Rx Famotidine [Pepcid] 20 mg PO BID #30 tablet 05/13/20 05/29/20 Unknown Rx carvediloL [Coreg] 6.25 mg PO BID #60 05/13/20 05/29/20 Unknown Rx Active Meds: Active Medications Acetaminophen (Tylenol) 650 mg FEEDTUBE Q6H PRN PRN Reason: Fever >101 Last Admin: 06/29/20 21:18 Dose: 650 mg Documented by: Amlodipine Besylate (Amlodipine) 10 mg PO DAILY [facility] Last Admin: 07/12/20 09:22 Dose: 10 mg Documented by: Lipase/Protease/Amylase (Pancreiqrae Dr 10,500 Unit) 1 each FEEDTUBE PRN PRN PRN Reason: For Clogged Feeding Tube Last Admin: 07/07/20 10:36 Dose: 1 each Documented by: Carvedilol (Coreg) 12.5 mg PO BID [facility] Last Admin: 07/12/20 22:18 Dose: 12.5 mg Documented by: Clonidine HCl (Catapres) 0.2 mg PO Q12HR [facility] Last Admin: 07/12/20 22:28 Dose: 0.2 mg Documented by: Glycopyrrolate (Glycopyrrolate) 2 mg PO TID [facility] Last Admin: 07/12/20 21:16 Dose: 2 mg Documented by: Heparin Sodium (Porcine) (Heparin) 5,000 unit SUB-Q Q8HR [facility] Last Admin: 07/13/20 06:39 Dose: 5,000 unit Documented by: Hydralazine HCl (Apresoline) 75 mg PO Q8HR [facility] Last Admin: 07/13/20 06:38 Dose: 75 mg Documented by: Hydrophilic Ointment (Vaseline Lip Therapy) 1 applic TP Q2HR PRN PRN Reason: Dry Lips Insulin Glargine (Lantus) 10 units SUB-Q QHS [facility] Last Admin: 07/12/20 22:17 Dose: 10 units Documented by: Insulin Human Lispro (Humalog) 0 unit SUB-Q Q6H [facility]; Protocol Last Admin: 07/13/20 07:09 Dose: Not Given Documented by: Labetalol HCl (Labetalol) 20 mg IV Q4H PRN PRN Reason: HYPERTENSION Last Admin: 07/12/20 12:06 Dose: 20 mg Documented by: Lansoprazole (Prevacid Solutab) 30 mg FEEDTUBE BID [facility] Last Admin: 07/12/20 22:23 Dose: 30 mg Documented by: Levetiracetam (Keppra) 500 mg PO BID [facility] Last Admin: 07/12/20 22:51 Dose: 500 mg Documented by: Modafinil (Provigil) 100 mg PO DAILY [facility] Last Admin: 07/12/20 09:21 Dose: 100 mg Documented by: Multi-Ingred Cream/Lotion/Oil/Oint (Artificial Tears Ophth Oint) 1 applic OU Q4HR PRN PRN Reason: Dry Eye(s) Ondansetron HCl (Zofran) 4 mg IV Q8H PRN PRN Reason: Nausea And Vomiting Last Admin: 06/09/20 16:48 Dose: 4 mg Documented by: Senna (Senokot) 17.6 mg FEEDTUBE BID [facility] Last Admin: 07/12/20 22:29 Dose: Not Given Documented by: Simple Syrup (Simple Syrup) 15 ml FEEDTUBE PRN PRN PRN Reason: Hypoglycemia Simple Syrup (Simple Syrup) 30 ml FEEDTUBE PRN PRN PRN Reason: Hypoglycemia Sodium Bicarbonate (Sodium Bicarbonate) 325 mg FEEDTUBE PRN PRN PRN Reason: For Clogged Feeding Tube Last Admin: 07/07/20 10:36 Dose: 325 mg Documented by: Sodium Chloride (Sodium Chloride Flush Syringe 10 Ml) 10 ml IV BID [facility] Last Admin: 07/12/20 22:22 Dose: 10 ml Documented by: Sodium Chloride (Sodium Chloride Flush Syringe 10 Ml) 10 ml IV PRN PRN PRN Reason: LINE FLUSH Last Admin: 06/16/20 17:50 Dose: 10 ml Documented by: Review of Systems ROS unobtainable: due to endotracheal tube, due to mental status Exam Vital Signs BP 239/126 05/28/20 13:15 Narrative exam: General: Intubated, not responsive ENT: ET tube and NG tube in place CV: S1, S2 present Respiratory: On vent Abdomen: Obese Results - Labs 07/13/20 04:53 07/13/20 04:53 Abnormal lab results 07/12/20 07/12/20 07/13/20 Range/Units 11:32 17:53 00:18 RBC (3.65-5.03) M/mm3 Hgb (10.1-14.3) gm/dl Hct (30.3-42.9) % RDW (13.2-15.2) % Sodium (137-145) mmol/L BUN (7-17) mg/dL Creatinine (0.6-1.2) mg/dL Glucose (65-100) mg/dL POC Glucose 132 H 155 H 162 H (70-105) 07/13/20 07/13/20 07/13/20 Range/Units 04:53 04:53 06:14 RBC 2.86 L (3.65-5.03) M/mm3 Hgb 8.4 L (10.1-14.3) gm/dl Hct 25.7 L (30.3-42.9) % RDW 16.8 H (13.2-15.2) % Sodium 136 L (137-145) mmol/L BUN 78 H (7-17) mg/dL Creatinine 2.0 H (0.6-1.2) mg/dL Glucose 130 H (65-100) mg/dL POC Glucose 141 H (70-105) Diabetes panel 07/13/20 Range/Units 04:53 Sodium 136 L (137-145) mmol/L Potassium 5.0 (3.6-5.0) mmol/L Chloride 102.4 (98-107) mmol/L Carbon Dioxide 27 (22-30) mmol/L BUN 78 H (7-17) mg/dL Creatinine 2.0 H (0.6-1.2) mg/dL Glucose 130 H (65-100) mg/dL Calcium 8.7 (8.4-10.2) mg/dL Calcium panel 07/13/20 Range/Units 04:53 Calcium 8.7 (8.4-10.2) mg/dL Pituitary panel 07/13/20 Range/Units 04:53 Sodium 136 L (137-145) mmol/L Potassium 5.0 (3.6-5.0) mmol/L Chloride 102.4 (98-107) mmol/L Carbon Dioxide 27 (22-30) mmol/L BUN 78 H (7-17) mg/dL Creatinine 2.0 H (0.6-1.2) mg/dL Glucose 130 H (65-100) mg/dL Calcium 8.7 (8.4-10.2) mg/dL Adrenal panel 07/13/20 Range/Units 04:53 Sodium 136 L (137-145) mmol/L Potassium 5.0 (3.6-5.0) mmol/L Chloride 102.4 (98-107) mmol/L Carbon Dioxide 27 (22-30) mmol/L BUN 78 H (7-17) mg/dL Creatinine 2.0 H (0.6-1.2) mg/dL Glucose 130 H (65-100) mg/dL Calcium 8.7 (8.4-10.2) mg/dL - Imaging Chest x-ray: report reviewed, image reviewed Assessment and Plan 64 yo F 1. VDRF 2. COVID PNA 3. CODE blue x2 4. encephalopathy Patient stable. Mental status precludes extubation. Plan: 1. Pt is a candidate for trach/peg. I spoke with her son/HANS Patel . We discussed the indication for trach/PEG along with the risks, benefits, alternatives. I explained to him that trach/peg will likely not improve patient's mental status/overall prognosis. All questions were answered. Mr. Patel has elected to proceed with trach and peg, consent obtained. 2. Will obtain repeat COVID testing as testing on 07/01/2020 was still positive. If repeat testing is negative, will schedule for trach and PEG in [place] later this week. 3. Continue vent management per ICU team 4. Continue tube feeds via NG tube Thank you for this consultation. Please call with any questions or concerns. Evaluation and treatment of this patient was during the time of the national and state emergency arising from COVID19 coronavirus pandemic. Treatment and procedures performed meet the current and available best practice and guidelines for patient during the COVID pandemic.
[2020-07-13 09:43] LABS: Anisocytosis 1+; Band Neutrophils # (Manual) 0.1 K/mm3; Basophils % (Manual) 0 % (0.0-1.8); Platelet Estimate Consistent w Auto; Total Cells Counted 100
--- NOTE | 2020-07-13 10:13 | Progress Note ---
Assessment and Plan Assessment and plan: -- Acute hypoxemic respiratory failure intubated on admission, extubated on 06/12/20 then placed on high flow o2 patient developed another respiratory arrest on 06/26 - reintubated Patient not tolerating weaning parameters CC following, may need trach and PEG if unable to wean --Hyperkalemia; resolved Monitor electrolytes -- Hypertension; uncontrolled Increase hydralazine dose to 75 mg 3 times a day Continue amlodipine, coreg, clonidine and hydralazine --Worsening renal function; creatinine 2.4-2.5-2.9 Vasomotor nephropathy, gentle hydration Avoid nephrotoxins, monitor renal function Reconsult nephrology --Rectal bleeding; Hb dropped from 8.2 -6.9-7.7-6.8 today, Transfused 1 unit PRBC Closely monitor H&H, GI following, no plans of endoscopy --Acute blood loss anemia; Received 2 units of PRBC transfusion, Hb improved from 6.9-7.7-6.8 Patient received 2 units of PRBC in the past, transfuse 1 additional unit today Closely monitor H&H -- s/p cardiopulmonary arrest on admission, 06/26 and 07/01, s/p CPR per ACLS protocol, refer to code sheet --Severe sepsis persistently positive for COVID-19 and Klebsiella pneumoniae ID following, completed treatment for COVID-19 and completed antibiotic --COVID-19 b/l PNA Completed remdesivir on 06/02 Completed dexamethasone - Last dose 06/07 ID recs appreciated. COVID-19 positive since 05/28/2020 Repeat test 06/29 still positive --Superficial left cephalic vein DVT/elevated D-dimers[COVID 19] Patient initially started on heparin drip from 05/29/20 D-dimers improved [id number] Heparin drip discontinued treated with Eliquis 5 mg twice a day for 1 week[per ID] stop date 06/26/2020 -- Acute toxic metabolic encephalopathy, POA likely from sepsis and s/p cardiac arrest with possible anoxic injury -- Acute renal failure: likely ATN Resolved, avoid nephrotoxins --Klebsiella pneumonia: Initially completed antibiotics with cefepime Repeat sputum culture still positive for Klebsiella, restarted antibiotic Completed second round of 5 days of cefepime on 07/04/2020 --Acute on chronic systolic heart failure Cardiology following. Ef 45% -- Coffee ground emesis -Stress ulcers Possible stress ulcers, On PPI H/H again dropped - transfuse GI evaluated --Transaminitis. Etiology likely from COVID-19. cont to monitor -- DVT prophylaxis Eliquis, SCD to bilateral lower extremities while in bed -- Advance care planning Patient is critically ill with multiple medical problems Poor prognosis, family updated and requesting full code 06/26; Code blue called. ACLS initiated, Pt found to have Asystolic Arrest with eventual return of perfusing cardiac rhythm. patient reintubated during code, transferred to ICU, called family and updated 06/28: Patient is spiking fever, started on empiric antibiotic, ordered blood urine and sputum culture. We will reconsult ID. Discussed with patient's son in the evening. Family wants to continue full CODE STATUS. Discussed with critical care attending and RN in length. 06/29: Repeat COVID-19 test is positive. Patient remains on ventilator, continue tube feeding diet. Renal function stable, H&H stable. GI recommendation appreciated -no plan for endoscopy now as there is no active bleeding. 06/30: Renal function improving, patient remains positive for COVID. Tolerating tube feeding, wean off vent as tolerated. Patient remains with poor prognosis 07/05; patient has significant drop in H&H, hemoglobin today is 6.9, heme positive stool, type and cross transfuse 2 units of PRBC GI following, no plans of endoscopy 07/07; Hb dropped to 7.7-6.8, no new episodes of bleeding, transfuse additional 1 unit PRBC today Closely monitor H&H, worsening renal function, hyperkalemia, calcium chloride Kayexalate, gentle hydration, reconsult nephrology 07/08: Patient not tolerating weaning parameters, if unable to wean may need trach and PEG, patient critically ill poor prognosis 07/11/2020. Patient currently on mechanical ventilation AC/PRVC with rate of 12, tidal volume 450, FiO2 30% and PEEP of 6 07/12/2020. Patient placed on CPAP with pressure support of 10 and tolerating well. Continue PSB trials as tolerated. 07/13/2020. Patient currently with AC mode rate 12, tidal volume 450, FiO2 30% and PEEP of 6. Surgery has been consulted for trach and PEG placement. Recall nephrology for renal insufficiency. The high probability of a clinically significant, sudden or life threatening deterioration of the [CVS, renal, respiratory, HAIR TINTER] system(s) required my full and direct attention, intervention and personal management. The aggregate critical care time was [31] minutes. This time is in addition to time spent performing reported procedures but includes the following: [x] Data Review and interpretation [x] Patient assessment and monitoring of vital signs [x] Documentation [x] Medication orders and management History Interval history: 64-year-old female with hypertension, diastolic CHF, pulmonary hypertension, diabetes, obesity hypoventilation syndrome, bilateral COVID pneumonia, was admitted to the emergency room after she called EMS due to difficulty breathing. On the way to the hospital, patient developed cardiac arrest and was treated as per ACLS protocol. Patient has completed 5 days of IV remdesivir 06/02/2020 and completed steroid. Patient had a second cardiac arrest during hospitalization on 07/01/2020. Patient remains intubated on mechanical ventilation. Hospitalist Physical - Constitutional Vitals: Temp Pulse Resp BP Pulse Ox 98.9 F 80 14 177/61 99 07/13/20 08:00 07/13/20 09:00 07/13/20 09:00 07/13/20 09:00 07/13/20 09:00 General appearance: Present: mild distress, well-nourished, obese (Morbidly obese), other (Intubated on ventilatory support) - EENT Eyes: Present: PERRL, EOM intact ENT: hearing intact, clear oral mucosa, dentition normal - Neck Neck: Present: supple, normal ROM - Respiratory Respiratory effort: normal Respiratory: bilateral: CTA - Cardiovascular Rhythm: regular Heart Sounds: Present: S1 & S2. Absent: gallop, rub - Extremities Extremities: no ischemia, No edema, Full ROM - Abdominal General gastrointestinal: soft, non-tender, non-distended, normal bowel sounds - Integumentary Integumentary: Present: clear, warm, dry - Neurologic Neurologic: CNII-XII intact, moves all extremities HEART Score - HEART Score Troponin: Troponin T 0.067 ng/mL (0.00-0.029) H 07/01/20 06:01 Results - Labs CBC & Chem 7: 07/13/20 04:53 07/13/20 04:53 Labs: Laboratory Last Values WBC 8.5 K/mm3 (4.5-11.0) 07/13/20 04:53 RBC 2.86 M/mm3 (3.65-5.03) L 07/13/20 04:53 Hgb 8.4 gm/dl (10.1-14.3) L 07/13/20 04:53 Hct 25.7 % (30.3-42.9) L 07/13/20 04:53 MCV 90 fl (79-97) 07/13/20 04:53 MCH 30 pg (28-32) 07/13/20 04:53 MCHC 33 % (30-34) 07/13/20 04:53 RDW 16.8 % (13.2-15.2) H 07/13/20 04:53 Plt Count 298 K/mm3 (140-440) 07/13/20 04:53 Lymph % (Auto) 10.3 % (13.4-35.0) L 07/08/20 04:14 [place] % (Auto) 10.0 % (0.0-7.3) H 07/08/20 04:14 Eos % (Auto) 2.0 % (0.0-4.3) 07/08/20 04:14 Baso % (Auto) 0.5 % (0.0-1.8) 07/08/20 04:14 Lymph # (Auto) 1.1 K/mm3 (1.2-5.4) L 07/08/20 04:14 [place] # (Auto) 1.1 K/mm3 (0.0-0.8) H 07/08/20 04:14 Eos # (Auto) 0.2 K/mm3 (0.0-0.4) 07/08/20 04:14 Baso # (Auto) 0.1 K/mm3 (0.0-0.1) 07/08/20 04:14 Add Manual Diff Complete 07/13/20 04:53 Total Counted 100 07/13/20 04:53 Seg Neutrophils % 77.2 % (40.0-70.0) H 07/08/20 04:14 Seg Neuts % (Manual) 84.0 % (40.0-70.0) H 07/13/20 04:53 Band Neutrophils % 1.0 % 07/13/20 04:53 Lymphocytes % (Manual) 7.0 % (13.4-35.0) L 07/13/20 04:53 Reactive Lymphs % (Man) 0 % 07/13/20 04:53 Monocytes % (Manual) 5.0 % (0.0-7.3) 07/13/20 04:53 Eosinophils % (Manual) 1.0 % (0.0-4.3) 07/13/20 04:53 Basophils % (Manual) 0 % (0.0-1.8) 07/13/20 04:53 Metamyelocytes % 2.0 % 07/13/20 04:53 Myelocytes % 0 % 07/13/20 04:53 Promyelocytes % 0 % 07/13/20 04:53 Blast Cells % 0 % 07/13/20 04:53 Nucleated RBC % Not Reportable 07/13/20 04:53 Seg Neutrophils # 8.2 K/mm3 (1.8-7.7) H 07/08/20 04:14 Seg Neutrophils # Man 7.1 K/mm3 (1.8-7.7) 07/13/20 04:53 Band Neutrophils # 0.1 K/mm3 07/13/20 04:53 Lymphocytes # (Manual) 0.6 K/mm3 (1.2-5.4) L 07/13/20 04:53 Abs React Lymphs (Man) 0.0 K/mm3 07/13/20 04:53 Monocytes # (Manual) 0.4 K/mm3 (0.0-0.8) 07/13/20 04:53 Eosinophils # (Manual) 0.1 K/mm3 (0.0-0.4) 07/13/20 04:53 Basophils # (Manual) 0.0 K/mm3 (0.0-0.1) 07/13/20 04:53 Metamyelocytes # 0.2 K/mm3 07/13/20 04:53 Myelocytes # 0.0 K/mm3 07/13/20 04:53 Promyelocytes # 0.0 K/mm3 07/13/20 04:53 Blast Cells # 0.0 K/mm3 07/13/20 04:53 WBC Morphology Not Reportable 07/13/20 04:53 Hypersegmented Neuts Not Reportable 07/13/20 04:53 Hyposegmented Neuts Not Reportable 07/13/20 04:53 Hypogranular Neuts Not Reportable 07/13/20 04:53 Smudge Cells Not Reportable 07/13/20 04:53 Toxic Granulation Not Reportable 07/13/20 04:53 Toxic Vacuolation Not Reportable 07/13/20 04:53 Dohle Bodies Not Reportable 07/13/20 04:53 Pelger-Huet Anomaly Not Reportable 07/13/20 04:53 Sanjuanita Rods Not Reportable 07/13/20 04:53 Platelet Estimate Consistent w auto 07/13/20 04:53 Clumped Platelets Not Reportable 07/13/20 04:53 Plt Clumps, EDTA Not Reportable 07/13/20 04:53 Large Platelets Not Reportable 07/13/20 04:53 Giant Platelets Not Reportable 07/13/20 04:53 Platelet Satelliting Not Reportable 07/13/20 04:53 Plt Morphology Comment Not Reportable 07/13/20 04:53 RBC Morphology Not Reportable 07/13/20 04:53 Dimorphic RBCs Not Reportable 07/13/20 04:53 Polychromasia Not Reportable 07/13/20 04:53 Hypochromasia Not Reportable 07/13/20 04:53 Poikilocytosis Not Reportable 07/13/20 04:53 Anisocytosis 1+ 07/13/20 04:53 Microcytosis Not Reportable 07/13/20 04:53 Macrocytosis Not Reportable 07/13/20 04:53 Spherocytes Not Reportable 07/13/20 04:53 Pappenheimer Bodies Not Reportable 07/13/20 04:53 Sickle Cells Not Reportable 07/13/20 04:53 Target Cells Not Reportable 07/13/20 04:53 Tear Drop Cells Not Reportable 07/13/20 04:53 Ovalocytes Not Reportable 07/13/20 04:53 Helmet Cells Not Reportable 07/13/20 04:53 Jones-Gail Bodies Not Reportable 07/13/20 04:53 [place] Rings Not Reportable 07/13/20 04:53 [place] Cells Not Reportable 07/13/20 04:53 Bite Cells Not Reportable 07/13/20 04:53 Crenated Cell Not Reportable 07/13/20 04:53 Elliptocytes Not Reportable 07/13/20 04:53 Acanthocytes (Spur) Not Reportable 07/13/20 04:53 Rouleaux Not Reportable 07/13/20 04:53 Hemoglobin C Crystals Not Reportable 07/13/20 04:53 Schistocytes Not Reportable 07/13/20 04:53 Malaria parasites Not Reportable 07/13/20 04:53 Kev Bodies Not Reportable 07/13/20 04:53 Hem Pathologist Commnt No 07/13/20 04:53 PT 14.2 Sec. (12.2-14.9) 05/29/20 15:10 INR 1.08 (0.87-1.13) 05/29/20 15:10 APTT 27.2 Sec. (24.2-36.6) 05/29/20 15:10 D-Dimer 2310.15 ng/mlDDU (0-234) H 06/29/20 14:45 Heparin Anti-Xa Level 0.34 U.I./ml (0.3-0.7) 06/19/20 10:46 ABG pH 7.32 pH Units (7.350-7.450) L 07/05/20 13:05 POC ABG pCO2 35.8 mmHg (32.0-48.0) 07/01/20 05:02 ABG pCO2 47.0 mm Hg 07/05/20 13:05 ABG Oxyhemoglobin 92.6 (94-98) L 06/23/20 12:34 POC ABG pO2 90.8 mmHg (83-108) 07/01/20 05:02 ABG pO2 78.3 mm Hg (80.0-90.0) L 07/05/20 13:05 POC ABG HCO3 22.1 07/01/20 05:02 ABG HCO3 23.4 mmol/L (20.0-26.0) 07/05/20 13:05 ABG O2 Saturation 96.1 % (95.0-99.0) 07/05/20 13:05 ABG O2 Content 0.3 (0.0-44) 07/05/20 13:05 POC ABG Base Excess -2.3 07/01/20 05:02 ABG Base Excess -2.6 mmol/L (-2.0-3.0) L 07/05/20 13:05 ABG Hemoglobin 7.3 gm/dl (12.0-16.0) L 07/05/20 13:05 ABG Carboxyhemoglobin 1.7 % (0.0-5.0) 07/05/20 13:05 ABG Methemoglobin 0.2 % (0.0-1.5) 07/05/20 13:05 VBG pH 7.152 (7.320-7.420) L* 05/28/20 13:47 Carboxyhemoglobin 0.5 (0.5-1.5) 06/23/20 12:34 Oxyhemoglobin 97.4 % (95.0-99.0) 07/05/20 13:05 FiO2 30 % 07/05/20 13:05 Sodium 136 mmol/L (137-145) L 07/13/20 04:53 Potassium 5.0 mmol/L (3.6-5.0) 07/13/20 04:53 Chloride 102.4 mmol/L (98-107) 07/13/20 04:53 Carbon Dioxide 27 mmol/L (22-30) 07/13/20 04:53 Anion Gap 12 mmol/L 07/13/20 04:53 BUN 78 mg/dL (7-17) H 07/13/20 04:53 Creatinine 2.0 mg/dL (0.6-1.2) H 07/13/20 04:53 Estimated GFR 25 ml/min 07/13/20 04:53 BUN/Creatinine Ratio 39 % 07/13/20 04:53 Glucose 130 mg/dL (65-100) H 07/13/20 04:53 POC Glucose 141 (70-105) H 07/13/20 06:14 Lactic Acid 0.60 mmol/L (0.7-2.0) L 06/27/20 05:00 Calcium 8.7 mg/dL (8.4-10.2) 07/13/20 04:53 Ferritin 223.6 ng/mL (10.0-200.0) H 06/29/20 14:45 Magnesium 2.50 mg/dL (1.7-2.3) H 07/08/20 04:14 Lactate Dehydrogenase 367 units/L (91-180) H 06/29/20 14:45 Total Bilirubin < 0.20 mg/dL (0.1-1.2) 07/10/20 10:41 AST 25 units/L (5-40) 07/10/20 10:41 ALT 11 units/L (7-56) 07/10/20 10:41 Alkaline Phosphatase 131 units/L (35-129) H 07/10/20 10:41 C-Reactive Protein 3.60 mg/dL (0.00-1.30) H 06/29/20 14:45 Total Creatine Kinase 300 units/L (30-135) H 07/01/20 06:01 CK-MB (CK-2) 2.0 ng/mL (0.0-4.0) 07/01/20 06:01 CK-MB (CK-2) Rel Index 0.6 (0-4) 07/01/20 06:01 Troponin T 0.067 ng/mL (0.00-0.029) H 07/01/20 06:01 Total Protein 5.2 g/dL (6.3-8.2) L 07/10/20 10:41 Albumin 1.6 g/dL (3.9-5) L 07/10/20 10:41 Albumin/Globulin Ratio 0.4 % 07/10/20 10:41 Triglycerides 142 mg/dL (2-149) 07/01/20 06:01 Cholesterol 137 mg/dL (50-199) 07/01/20 06:01 LDL Cholesterol Direct 62 mg/dL (50-130) 07/01/20 06:01 HDL Cholesterol 61 mg/dL (40-59) H 07/01/20 06:01 Cholesterol/HDL Ratio 2.24 % 07/01/20 06:01 Procalcitonin 2.45 ng/mL (<0.15) 06/29/20 14:45 Urine Color Yellow (Yellow) 06/06/20 04:00 Urine Turbidity Cloudy (Clear) 06/06/20 04:00 Urine pH 5.0 (5.0-7.0) 06/06/20 04:00 Ur Specific [place] 1.012 (1.003-1.030) 06/06/20 04:00 Urine Protein 100 mg/dl mg/dL (Negative) 06/06/20 04:00 Urine Glucose (UA) 50 mg/dL (Negative) 06/06/20 04:00 Urine Ketones Neg mg/dL (Negative) 06/06/20 04:00 Urine Blood Sm (Negative) 06/06/20 04:00 Urine Nitrite Neg (Negative) 06/06/20 04:00 Urine Bilirubin Neg (Negative) 06/06/20 04:00 Urine Urobilinogen < 2.0 mg/dL (<2.0) 06/06/20 04:00 Ur Leukocyte Esterase Neg (Negative) 06/06/20 04:00 Urine WBC (Auto) 15.0 /HPF (0.0-6.0) H 06/06/20 04:00 Urine RBC (Auto) 23.0 /HPF (0.0-6.0) 06/06/20 04:00 U Epithel Cells (Auto) 8.0 /HPF (0-13.0) 06/06/20 04:00 Urine Bacteria (Auto) 2+ /HPF (Negative) 06/06/20 04:00 Amorphous Crystals 1+ 06/06/20 04:00 Hyaline Casts 16 /LPF 06/06/20 04:00 Urine Mucus 2+ /HPF 06/06/20 04:00 Urine Yeast (Budding) 2+ /HPF 06/03/20 Unknown Urine Creatinine 33.3 mg/dL (0.1-20.0) H 07/06/20 13:20 Urine Sodium 21 mmol/L 07/06/20 13:20 Urine Total Protein 196 mg/dL (5-11.8) H 06/06/20 04:00 Nasal Screen MRSA (PCR) Negative (Negative) 06/29/20 08:30 Coronavirus (PCR) Positive (Negative) A 06/29/20 Unknown Blood Type A POSITIVE 07/05/20 02:30 Antibody Screen Negative 07/05/20 02:30 Crossmatch See Detail 07/05/20 02:30 - Diagnostic Impressions Diagnostic Impressions: Echocardiogram Limited Views 05/29/20 13:52 Transthoracic Echocardiogram Indication: Pulm Embolus BP: 169/76 HR: 85 Conclusions *Limited study for RV size post cardiopulmonar arrest. *RV is only slightly dilated, no significant difference from prior echo 05/13/2020. *Global left ventricular systolic function is at the lower limits of normal. *The estimated ejection fraction is 45-50%. *Mild to moderate concentric left ventricular hypertrophy is observed. *The left and right atria are both mild to moderately dilated. Findings Left Ventricle: The left ventricular chamber size is mildly dilated. Mild to moderate concentric left ventricular hypertrophy is observed. Global left ventricular systolic function is at the lower limits of normal. The estimated ejection fraction is 45-50%. Left Atrium: The left atrium is mild to moderately dilated. Right Ventricle: The right ventricle is slightly dilated. Right Atrium: The right atrium is mild to moderately dilated. Aortic Valve: The aortic valve leaflets are moderately thickened. Mitral Valve: There is mitral annular calcification. The mitral valve leaflets are moderately thickened. Tricuspid Valve: The tricuspid valve leaflets are mildly thickened. Pericardium: A trivial pericardial effusion is visualized. NDUM: 05/29/20 1808 Amended Report Transthoracic Echocardiogram Indication: Pulm Embolus BP: 169/76 HR: 85 Conclusions *Limited study for RV size post cardiopulmonary arrest. *RV is only slightly dilated, no significant difference from prior echo 05/13/2020. *Global left ventricular systolic function is at the lower limits of normal. *The estimated ejection fraction is 45-50%. *Mild to moderate concentric left ventricular hypertrophy is observed. *The left and right atria are both mild to moderately dilated. Findings Left Ventricle: The left ventricular chamber size is mildly dilated. Mild to moderate concentric left ventricular hypertrophy is observed. Global left ventricular systolic function is at the lower limits of normal. The estimated ejection fraction is 45-50%. Left Atrium: The left atrium is mild to moderately dilated. Right Ventricle: The right ventricle is slightly dilated. Right Atrium: The right atrium is mild to moderately dilated. Aortic Valve: The aortic valve leaflets are moderately thickened. Mitral Valve: There is mitral annular calcification. The mitral valve leaflets are moderately thickened. Tricuspid Valve: The tricuspid valve leaflets are mildly thickened. Pericardium: A trivial pericardial effusion is visualized. Helm/IV: Voiding Method Indwelling Catheter IV Catheter Type [Left Wrist] INT / Saline Lock IV Catheter Type [Left Upper Mid-line arm] IV Catheter Type [Right CVL Internal Jugular] IV Catheter Type [Right Hand] INT / Saline Lock IV Catheter Type [Right Wrist] Not found on patient IV Catheter Type [Left Hand] INT / Saline Lock IV Catheter Type [Left INT / Saline Lock Antecubital] IV Catheter Type [Right Peripheral IV Forearm] IV Catheter Type [Left Leg] Intra-osseous Active Medications - Current Medications Current Medications: Generic Name Dose Route Start Last Admin Trade Name Freq PRN Reason Stop Dose Admin Acetaminophen 650 mg 06/09/20 10:57 06/29/20 21:18 Tylenol FEEDTUBE 650 mg Q6H PRN Administration Fever >101 Amlodipine Besylate 10 mg 06/02/20 11:00 07/12/20 09:22 Amlodipine PO 10 mg DAILY NELSON Administration Lipase/Protease/Amylase 1 each 05/29/20 13:39 07/07/20 10:[address] 10,500 Unit FEEDTUBE 1 each PRN PRN Administration For Clogged Feeding Tube Carvedilol 12.5 mg 06/03/20 10:00 07/12/20 22:18 Coreg PO 12.5 mg BID NELSON Administration Clonidine HCl 0.2 mg 06/23/20 22:00 07/12/20 22:28 Catapres PO 0.2 mg Q12HR NELSON Administration Glycopyrrolate 2 mg 06/09/20 14:00 07/12/20 21:16 Glycopyrrolate PO 2 mg TID NELSON Administration Heparin Sodium (Porcine) 5,000 unit 06/30/20 14:00 07/13/20 06:39 Heparin SUB-Q 5,000 unit Q8HR NELSON Administration Hydralazine HCl 75 mg 07/08/20 10:00 07/13/20 06:38 Apresoline PO 75 mg Q8HR NELSON Administration Hydrophilic Ointment 1 applic 05/28/20 13:49 Vaseline Lip Therapy TP Q2HR PRN Dry Lips Insulin Glargine 10 units 06/08/20 22:00 07/12/20 22:17 Lantus SUB-Q 10 units QHS NELSON Administration Insulin Human Lispro 0 unit 05/29/20 18:00 07/13/20 07:09 Humalog SUB-Q Not Given Q6H [facility] Protocol Labetalol HCl 20 mg 06/03/20 09:00 07/12/20 12:06 Labetalol IV 20 mg Q4H PRN Administration HYPERTENSION Lansoprazole 30 mg 06/05/20 22:00 07/12/20 22:23 Prevacid Solutab FEEDTUBE 30 mg BID NELSON Administration Levetiracetam 500 mg 06/16/20 11:00 07/12/20 22:51 Keppra PO 500 mg BID NELSON Administration Modafinil 100 mg 07/02/20 20:00 07/12/20 09:21 Provigil PO 100 mg DAILY NELSON Administration Multi-Ingred Cream/Lotion/Oil/Oint 1 applic 05/28/20 13:49 Artificial Tears Ophth Oint OU Q4HR PRN Dry Eye(s) Ondansetron HCl 4 mg 06/02/20 09:00 06/09/20 16:48 Zofran IV 4 mg Q8H PRN Administration Nausea And Vomiting Senna 17.6 mg 06/03/20 10:00 07/12/20 22:29 Senokot FEEDTUBE Not Given BID NELSON Simple Syrup 15 ml 05/29/20 13:39 Simple Syrup FEEDTUBE PRN PRN Hypoglycemia Simple Syrup 30 ml 05/29/20 13:39 Simple Syrup FEEDTUBE PRN PRN Hypoglycemia Sodium Bicarbonate 325 mg 05/29/20 13:39 07/07/20 10:36 Sodium Bicarbonate FEEDTUBE 325 mg PRN PRN Administration For Clogged Feeding Tube Sodium Chloride 10 ml 05/28/20 22:00 07/12/20 22:22 Sodium Chloride Flush Syringe 10 Ml IV 10 ml BID NELSON Administration Sodium Chloride 10 ml 05/28/20 19:08 06/16/20 17:50 Sodium Chloride Flush Syringe 10 Ml IV 10 ml PRN PRN Administration LINE FLUSH Nutrition/Malnutrition Assess - Dietary Evaluation Nutrition/Malnutrition Findings: Nutrition Notes Start: 05/29/20 11:45 Freq: Status: Active Protocol: Document 07/09/20 11:47 [email or web address] (Rec: 07/09/20 11:53 [email or web address]) Co-Sign 07/09/20 11:47 Nutrition Notes Initial or Follow up Reassessment Current Diagnosis Acute Kidney Injury,Diabetes, Heart Failure,Respiratory Failure Other Pertinent Diagnosis COVID-19 (+), Pulmonary edema, dysphagia Current Diet Glucerna 1.2 at 55ml/hr Labs/Tests Na 136 BUN 84 Cr 2.8 BG 109 Mg 2.5 Pertinent Medications Reviewed Height 5 ft 6 in Weight 123 kg [place] Body Weight (kg) 59.09 BMI 43.7 Weight Status Morbidly Obese Subjective/Other Information F/U TF tolerance. Per RN, pt tolerating TF and running at goal rate. Percent of energy/protein needs met: 99%/53% Burn Absent Trauma Absent Current % PO Negligible Minimum of two criteria No physical signs of malnutrition Fluid Accumulation Mild (non-severe) #1 Nutrition Diagnosis Inadequate oral intake Diagnosis Progress(for reassessment Continues documentation) Is patient on ventilator? Yes Is Patient Ambulatory and/or Out of Bed No REE-(Mcgehee-St. Jeor-confined to bed) 2172.576 Kcal/Kg value to use for calculation 13 Approximate Energy Requirements Using 1599 kcal/Kg Calculation Used for Recommendations Kcal/kg Additional Notes Protein needs up to 148g (up to 2.5g/kg IBW) Fluid needs 1ml/kcal Nutrition Intervention Change Diet Order: Change TF Nutrition Support: Nepro at 40ml/hr Flush 150ml q4h Kcal 1,728 Protein (gm) 78 Fluid (mL) 697 Goal #1 TF tolerance Goal #2 TF to meet at least 65%-70% energy and 80% protein needs Anticipated Discharge Needs: Unable to determine at this time Follow-Up By: 07/20/20 Additional Comments F/U for TF tolerance
[2020-07-13] MEDS: carvediloL 12.5 MG TAB PO SCH ×2 (10:37→21:04)
[2020-07-13] MEDS: MODAFINIL 100 MG TAB PO SCH (10:38)
[2020-07-13] MEDS: amLODIPine 10 MG TAB PO SCH (10:38)
[2020-07-13] MEDS: cloNIDine 0.2 MG TAB PO SCH ×2 (10:38→21:05)
[2020-07-13] MEDS: levETIRAcetam 500 MG/5 ML ORAL LIQD PO SCH ×2 (10:38→21:03)
[2020-07-13] MEDS: GLYCOPYRROLATE 2 MG TAB PO SCH ×3 (10:38→21:03)
[2020-07-13] MEDS: LANSOPRAZOLE 30 MG SOLUTAB FEEDTUBE SCH ×2 (10:38→21:05)
[2020-07-13] MEDS: SENNOSIDES ORAL LIQD 8.8 MG/5 ML ORAL LIQD FEEDTUBE SCH ×2 (10:39→21:03)
--- NOTE | 2020-07-13 10:53 | Progress Note ---
Assessment and Plan Cultures: Coronavirus PCR 05/28/2020: Positive 05/28/2020 blood culture: no growth 05/28/2020 tracheal aspirate: Usual respiratory bobo 05/28/2020 urine culture: No growth 06/03/2020 urine culture: No growth 06/09/2020 tracheal aspirate Klebsiella pneumoniae 06/28/2020 sputum culture positive for Klebsiella 06/28/2020 blood cultures no growth today 06/29/2020 SARS COV2 PCR positive A/P: 64-year-old female with hypertension, diastolic CHF, pulmonary hypertension, diabetes, obesity hypoventilation syndrome, recent COVID pneumonia, was admitted to the emergency room after she called EMS due to difficulty breathing. On the way to the hospital, patient developed cardiac arrest and was treated as per ACLS protocol: #Cardiac arrest on 07/01/2020. #Sepsis on 06/27/2020: Resolved. After asystolic cardiac arrest on 06/26/2028. #Bilateral pneumonia: Secondary to COVID-19. Completed 5 days of IV Remdesivir 06/02/2020, completed steroids. ?Healthcare associated pneumonia, repeat sputum Klebsiella. Chest x-ray worsening infiltrates. Completed abx. #Acute hypoxic respiratory failure: On mechanical ventilation. Minimal vent settings. #HF: EF 45-50% #Mild LFT elevation: likely from COVID-19. #Severe constipation: Status post manual disimpaction. #Encephalopathy: ? Post cardiac arrest. Recs: - continue supportive care, awaits trach/PEG - one low grade fever, WBC not elevated. Procal ordered for AM. No abx at this time. Mallory Wright MD, FACP [facility] C: [phone] O: [phone] F: [phone] Subjective Date of service: 07/13/20 Principal diagnosis: Ac hypoxemic resp failure; COVID-19; pneumonia; CHF; Pulm HTN; OHS; DM II Interval history: Remains intubated, on the vent, minimal settings. One low grade fever. Objective - Exam Narrative Exam: Physical Exam (reviewed in chart due to PPE conservation) Constitutional: intubated, sedated, on the vent Head, Ears, Nose: normocephalic, atraumatic Eyes: limited due to PPE conservation strategy Neck: intubated Oral: intubated Cardiovascular: limited due to PPE conservation strategy Respiratory: limited due to PPE conservation strategy GI: limited due to PPE conservation strategy Musculoskeletal: limited due to PPE conservation strategy Skin: limited due to PPE conservation strategy Hem/Lymphatic: limited due to PPE conservation strategy Psych: no agitation Neurological: sedated, intubated, on the vent, exam limited - Constitutional Vitals: Vital Signs Temp Pulse Resp BP Pulse Ox 98.9 F 83 14 146/49 98 07/13/20 08:00 07/13/20 10:38 07/13/20 10:00 07/13/20 10:38 07/13/20 10:00 Temperature -Last 24 Hours Temperature 98.9 F Temperature 99.8 F Temperature 100.0 F Temperature 98.9 F Temperature 98.2 F Temperature 98.4 F - Labs CBC & Chem 7: 07/13/20 04:53 07/13/20 04:53 Labs: Abnormal lab results 07/12/20 07/12/20 07/13/20 Range/Units 11:32 17:53 00:18 RBC (3.65-5.03) M/mm3 Hgb (10.1-14.3) gm/dl Hct (30.3-42.9) % RDW (13.2-15.2) % Seg Neuts % (Manual) (40.0-70.0) % Lymphocytes % (Manual) (13.4-35.0) % Lymphocytes # (Manual) (1.2-5.4) K/mm3 Sodium (137-145) mmol/L BUN (7-17) mg/dL Creatinine (0.6-1.2) mg/dL Glucose (65-100) mg/dL POC Glucose 132 H 155 H 162 H (70-105) 07/13/20 07/13/20 07/13/20 Range/Units 04:53 04:53 06:14 RBC 2.86 L (3.65-5.03) M/mm3 Hgb 8.4 L (10.1-14.3) gm/dl Hct 25.7 L (30.3-42.9) % RDW 16.8 H (13.2-15.2) % Seg Neuts % (Manual) 84.0 H (40.0-70.0) % Lymphocytes % (Manual) 7.0 L (13.4-35.0) % Lymphocytes # (Manual) 0.6 L (1.2-5.4) K/mm3 Sodium 136 L (137-145) mmol/L BUN 78 H (7-17) mg/dL Creatinine 2.0 H (0.6-1.2) mg/dL Glucose 130 H (65-100) mg/dL POC Glucose 141 H (70-105)
--- NOTE | 2020-07-13 11:11 | Progress Note ---
Assessment and Plan Cardiopulmoanry arrest 06/26/2020 with ROSC Acute hypoxemic respiratory failure , extubated now re-intubated Anemia s/p PRBC Severe COVID infection Multifocal pneumonia Morbid obesity Acute toxic metabolic encephalopathy AVANI secondary to COVID/vasomotor nephropathy Bilateral pulmonary edema. Bilateral pleural effusions. History of congestive heart failure. History of pulmonary hypertension. History of hypertension. Diabetes. Obesity hypoventilation syndrome. Oropharyngeal dysphagia. Trend temperature curve and WCC Daily SBTs as tolerated, her mental staus precludes liberation from MVS Trach and PEG , General surgery consult Discontinue Helm catheter Continue to avoid nephrotoxins, closely monitor renal function, dose all medications for renal function Supportive transfusions as indicated - VAP bundle addressed -Aspiration precautions, HOB >40 -lung protective strategies-ARDS. net - continue bronchodilators with pulmonary hygiene per RT - wean per pulmonary driven protocols otherwise - continue to avoid benzodiazepines, reduce the possibility of delirium - prn analgesia per CPOT score - Continue to wean supplemental oxygen for target O2 sats > 92% -Continue to hold sedation, if needed intermittent dosing - conservative fluid management measures as tolerated by hemodynamics and renal function - Bronchodilators with pulmonary hygiene per RT - Accuchecks with glycemic control per SSI (While critically ill target blood glucose of 140-180 mg/dL; avoid hypoglycemia) - Maintenance of sleep-wake cycle, avoid delirium - Aspiration precautions, HOB >40 - Stress ulcer prophylaxis -Famotidine - Mobility protocol, off loading and skin assessment for pressure ulcer p revention - Supportive transfusions as indicated to keep HgB >7g/dL COVID SPECIFIC INTERVENTIONS -Airborne, contact isolation for COVID per facility protocols - s/p Remdesivir -IV steroids-Dexamethasone -Trend d-dimer,and other inflammatory markers per facility protocol -Convalescent plasma therapy per facility protocol -Continue all supportive care Discussed with the ICU team-RT,RN, Clinical Pharmacist, Case management Life threatening condition- Cardiopulmonary arrest with ROSC, Sepsis ;COVID 19 acute hypoxemic respiratory failure on MVS Mortality/Morbidity- High Complexity of medical decision making- High CONDITION: CRITICAL PROGNOSIS: GUARDED CODE STATUS: FULL CODE The high probability of a clinically significant, sudden or life-threatening deterioration of the [respiratory & neurology, renal ] system(s) required my full and direct attention, intervention and personal management. The aggregate critical care time was [32] minutes without overlap. Time includes spent on; [x] Data Review and interpretation [x] Patient assessment and monitoring of vital signs [x] Documentation [x] Medication orders and management Subjective Date of service: 07/13/20 Principal diagnosis: Ac hypoxemic resp failure; COVID-19; pneumonia; CHF; Pulm HTN; OHS; DM II Interval history: Patient is seen today for: Ac hypoxemic resp failure s/p Cardiopulmonary arrest with ROSC; Coronavirus-19 infection; pneumonia; Pulmonary edema; Bilateral pleural effusions; CHF; Morbid obesity; pulmonary hypertension; OHS; DM II Seen and examined at bedside; 24hour events reviewed; nursing and respiratory care staff consulted; Vitals, labs,medications, chart reviewed. Remains on MVS, no fevers, Tolerating PS trials 10/+5 with full support at night Mental status changes persist, but grimaces to pain and will open her eyes with sternal rub Tolerating tube feedings, No adverse overnight events Objective Vital Signs - 12hr 07/12/20 07/12/20 07/13/20 23:30 23:54 00:00 Temperature 100.0 F H Pulse Rate 80 80 79 Respiratory 14 15 Rate Blood Pressure 158/56 158/56 156/57 O2 Sat by Pulse 98 98 98 Oximetry 07/13/20 07/13/20 07/13/20 00:30 01:00 01:30 Temperature Pulse Rate 79 80 78 Respiratory 10 L 13 18 Rate Blood Pressure 154/60 156/60 160/59 O2 Sat by Pulse 98 98 98 Oximetry 07/13/20 07/13/20 07/13/20 02:00 02:30 03:00 Temperature Pulse Rate 80 80 80 Respiratory 11 L 15 17 Rate Blood Pressure 159/60 159/63 165/59 O2 Sat by Pulse 99 98 99 Oximetry 07/13/20 07/13/20 07/13/20 03:30 04:00 04:08 Temperature 99.8 F H Pulse Rate 79 81 80 Respiratory 13 14 Rate Blood Pressure 160/61 162/66 162/66 O2 Sat by Pulse 98 98 99 Oximetry 07/13/20 07/13/20 07/13/20 04:30 05:00 05:30 Temperature Pulse Rate 82 82 81 Respiratory 12 16 13 Rate Blood Pressure 165/61 169/64 167/61 O2 Sat by Pulse 99 98 98 Oximetry 07/13/20 07/13/20 07/13/20 06:00 06:31 06:38 Temperature Pulse Rate 82 80 76 Respiratory 11 L 12 Rate Blood Pressure 166/60 166/60 170/56 O2 Sat by Pulse 99 98 Oximetry 07/13/20 07/13/20 07/13/20 07:00 07:15 07:30 Temperature Pulse Rate 79 76 78 Respiratory 13 9 L Rate Blood Pressure 164/59 139/52 O2 Sat by Pulse 99 98 Oximetry 07/13/20 07/13/20 07/13/20 08:00 08:23 08:31 Temperature 98.9 F Pulse Rate 73 72 84 Respiratory 13 15 Rate Blood Pressure 146/47 173/61 O2 Sat by Pulse 98 99 98 Oximetry 07/13/20 07/13/20 07/13/20 09:00 09:30 10:00 Temperature Pulse Rate 80 77 82 Respiratory 14 19 14 Rate Blood Pressure 177/61 168/59 168/59 O2 Sat by Pulse 99 97 98 Oximetry 07/13/20 07/13/20 07/13/20 10:30 10:37 10:38 Temperature Pulse Rate 76 83 83 Respiratory 19 Rate Blood Pressure 146/49 146/49 143/49 O2 Sat by Pulse 97 Oximetry 07/13/20 11:00 Temperature Pulse Rate 83 Respiratory 21 Rate Blood Pressure 162/64 O2 Sat by Pulse Oximetry Constitutional: no acute distress, other (elderly looking obese female on HFNC with mildly increased respiratory effort at rest on MVS) Eyes: non-icteric ENT: oropharynx dry, other (ETT 23-24 cm AYAN) Neck: supple, no lymphadenopathy, no JVD, other (large neck circumference) Effort: mildly labored Ascultation: Bilateral: clear, diminished breath sounds, rales, rhonchi (scant) Percussion: Bilateral: not dull Cardiovascular: regular rate and rhythm, other (S1,S2) Gastrointestinal: normoactive bowel sounds, soft, non-tender, non-distended Integumentary: normal Extremities: no cyanosis, no edema, pink and warm, pulses normal, no ischemia or petechiae Neurologic: pupils equal and round, unable to assess, other (minimally r esponsive) Psychiatric: other (unable to assess re: AMS) CBC and BMP: 07/13/20 04:53 07/13/20 04:53 ABG, PT/INR, D-dimer: ABG ABG pH 7.32 pH Units (7.350-7.450) L 07/05/20 13:05 POC ABG pCO2 35.8 mmHg (32.0-48.0) 07/01/20 05:02 ABG pCO2 47.0 mm Hg 07/05/20 13:05 POC ABG pO2 90.8 mmHg (83-108) 07/01/20 05:02 ABG pO2 78.3 mm Hg (80.0-90.0) L 07/05/20 13:05 POC ABG HCO3 22.1 07/01/20 05:02 ABG O2 Saturation 96.1 % (95.0-99.0) 07/05/20 13:05 PT/INR, D-dimer PT 14.2 Sec. (12.2-14.9) 05/29/20 15:10 INR 1.08 (0.87-1.13) 05/29/20 15:10 D-Dimer 2310.15 ng/mlDDU (0-234) H 06/29/20 14:45 Abnormal lab findings: Abnormal Labs 05/28/20 05/28/20 05/28/20 13:29 13:47 13:47 WBC RBC Hgb Hct MCHC RDW 15.3 H Lymph % (Auto) [place] % (Auto) Eos % (Auto) Lymph # [place] # Lymph # (Auto) [place] # (Auto) Seg Neutrophils % Seg Neuts % (Manual) Lymphocytes % (Manual) Seg Neutrophils # Seg Neutrophils # Man Lymphocytes # (Manual) Monocytes % (Manual) Eosinophils % (Manual) Monocytes # (Manual) Eosinophils # (Manual) D-Dimer Heparin Anti-Xa Level ABG pH POC ABG pCO2 POC ABG pO2 ABG pO2 ABG HCO3 ABG O2 Saturation ABG Base Excess ABG Hemoglobin ABG Oxyhemoglobin VBG pH Oxyhemoglobin Sodium Potassium 6.6 H* Chloride 109.2 H Carbon Dioxide 17 L BUN 29 H Creatinine 1.3 H Glucose 265 H POC Glucose 248 H Lactic Acid Calcium 8.1 L Ferritin AST 63 H Alkaline Phosphatase Magnesium Lactate Dehydrogenase Total Creatine Kinase 301 H CK-MB (CK-2) 4.3 H C-Reactive Protein Total Protein 5.4 L Albumin 2.6 L Troponin T HDL Cholesterol Urine WBC (Auto) Urine Creatinine Urine Total Protein Coronavirus (PCR) Crossmatch 05/28/20 05/28/2020 13:47 13:47 14:46 WBC RBC Hgb Hct MCHC RDW Lymph % (Auto) [place] % (Auto) Eos % (Auto) Lymph # [place] # Lymph # (Auto) [place] # (Auto) Seg Neutrophils % Seg Neuts % (Manual) Lymphocytes % (Manual) Seg Neutrophils # Seg Neutrophils # Man Lymphocytes # (Manual) Monocytes % (Manual) Eosinophils % (Manual) Monocytes # (Manual) Eosinophils # (Manual) D-Dimer Heparin Anti-Xa Level ABG pH POC ABG pCO2 POC ABG pO2 ABG pO2 ABG HCO3 ABG O2 Saturation ABG Base Excess ABG Hemoglobin ABG Oxyhemoglobin VBG pH 7.152 L* Oxyhemoglobin Sodium Potassium 7.2 H* Chloride Carbon Dioxide BUN Creatinine Glucose POC Glucose Lactic Acid 3.40 H* Calcium Ferritin AST Alkaline Phosphatase Magnesium Lactate Dehydrogenase Total Creatine Kinase CK-MB (CK-2) C-Reactive Protein Total Protein Albumin Troponin T HDL Cholesterol Urine WBC (Auto) Urine Creatinine Urine Total Protein Coronavirus (PCR) Crossmatch 05/28/20 05/28/20 05/28/20 15:33 15:33 15:51 WBC RBC Hgb Hct MCHC RDW Lymph % (Auto) [place] % (Auto) Eos % (Auto) Lymph # [place] # Lymph # (Auto) [place] # (Auto) Seg Neutrophils % Seg Neuts % (Manual) Lymphocytes % (Manual) Seg Neutrophils # Seg Neutrophils # Man Lymphocytes # (Manual) Monocytes % (Manual) Eosinophils % (Manual) Monocytes # (Manual) Eosinophils # (Manual) D-Dimer 8780.43 H Heparin Anti-Xa Level ABG pH 7.284 L POC ABG pCO2 POC ABG pO2 ABG pO2 273.0 H ABG HCO3 ABG O2 Saturation 99.4 H ABG Base Excess -6.1 L ABG Hemoglobin 17.2 H ABG Oxyhemoglobin VBG pH Oxyhemoglobin Sodium Potassium Chloride Carbon Dioxide BUN Creatinine Glucose 152 H POC Glucose Lactic Acid Calcium Ferritin AST Alkaline Phosphatase Magnesium Lactate Dehydrogenase 365 H Total Creatine Kinase CK-MB (CK-2) C-Reactive Protein Total Protein Albumin Troponin T HDL Cholesterol Urine WBC (Auto) Urine Creatinine Urine Total Protein Coronavirus (PCR) Crossmatch 05/28/20 05/28/20 05/28/20 16:30 20:41 23:20 WBC RBC Hgb Hct MCHC RDW Lymph % (Auto) [place] % (Auto) Eos % (Auto) Lymph # [place] # Lymph # (Auto) [place] # (Auto) Seg Neutrophils % Seg Neuts % (Manual) Lymphocytes % (Manual) Seg Neutrophils # Seg Neutrophils # Man Lymphocytes # (Manual) Monocytes % (Manual) Eosinophils % (Manual) Monocytes # (Manual) Eosinophils # (Manual) D-Dimer Heparin Anti-Xa Level ABG pH POC ABG pCO2 POC ABG pO2 ABG pO2 ABG HCO3 ABG O2 Saturation ABG Base Excess ABG Hemoglobin ABG Oxyhemoglobin VBG pH Oxyhemoglobin Sodium Potassium Chloride Carbon Dioxide BUN Creatinine Glucose POC Glucose 225 H 224 H Lactic Acid Calcium Ferritin AST Alkaline Phosphatase Magnesium Lactate Dehydrogenase Total Creatine Kinase CK-MB (CK-2) C-Reactive Protein Total Protein Albumin Troponin T HDL Cholesterol Urine WBC (Auto) 17.0 H Urine Creatinine Urine Total Protein Coronavirus (PCR) Crossmatch 05/28/20 05/29/20 05/29/20 Unknown 04:35 04:43 WBC RBC 3.48 L Hgb 9.8 L Hct 29.4 L MCHC RDW 16.0 H Lymph % (Auto) 7.4 L [place] % (Auto) Eos % (Auto) Lymph # 0.7 L [place] # Lymph # (Auto) [place] # (Auto) Seg Neutrophils % 89.1 H Seg Neuts % (Manual) Lymphocytes % (Manual) Seg Neutrophils # 8.1 H Seg Neutrophils # Man Lymphocytes # (Manual) Monocytes % (Manual) Eosinophils % (Manual) Monocytes # (Manual) Eosinophils # (Manual) D-Dimer Heparin Anti-Xa Level ABG pH POC ABG pCO2 POC ABG pO2 ABG pO2 ABG HCO3 19.3 L ABG O2 Saturation ABG Base Excess -4.5 L ABG Hemoglobin 9.7 L ABG Oxyhemoglobin VBG pH Oxyhemoglobin Sodium Potassium Chloride Carbon Dioxide BUN Creatinine Glucose POC Glucose Lactic Acid Calcium Ferritin AST Alkaline Phosphatase Magnesium Lactate Dehydrogenase Total Creatine Kinase CK-MB (CK-2) C-Reactive Protein Total Protein Albumin Troponin T HDL Cholesterol Urine WBC (Auto) Urine Creatinine Urine Total Protein Coronavirus (PCR) Positive A Crossmatch 05/29/20 05/29/20 05/29/20 04:43 15:10 17:17 WBC RBC Hgb 9.3 L Hct 28.7 L MCHC RDW Lymph % (Auto) [place] % (Auto) Eos % (Auto) Lymph # [place] # Lymph # (Auto) [place] # (Auto) Seg Neutrophils % Seg Neuts % (Manual) Lymphocytes % (Manual) Seg Neutrophils # Seg Neutrophils # Man Lymphocytes # (Manual) Monocytes % (Manual) Eosinophils % (Manual) Monocytes # (Manual) Eosinophils # (Manual) D-Dimer Heparin Anti-Xa Level ABG pH POC ABG pCO2 POC ABG pO2 ABG pO2 ABG HCO3 ABG O2 Saturation ABG Base Excess ABG Hemoglobin ABG Oxyhemoglobin VBG pH Oxyhemoglobin Sodium Potassium Chloride 110.2 H Carbon Dioxide 18 L BUN 32 H Creatinine 1.4 H Glucose 180 H POC Glucose 147 H Lactic Acid Calcium Ferritin AST Alkaline Phosphatase Magnesium Lactate Dehydrogenase Total Creatine Kinase CK-MB (CK-2) C-Reactive Protein Total Protein Albumin Troponin T HDL Cholesterol Urine WBC (Auto) Urine Creatinine Urine Total Protein Coronavirus (PCR) Crossmatch 05/30/20 05/30/20 05/30/20 00:08 00:12 04:15 WBC RBC Hgb Hct MCHC RDW Lymph % (Auto) [place] % (Auto) Eos % (Auto) Lymph # [place] # Lymph # (Auto) [place] # (Auto) Seg Neutrophils % Seg Neuts % (Manual) Lymphocytes % (Manual) Seg Neutrophils # Seg Neutrophils # Man Lymphocytes # (Manual) Monocytes % (Manual) Eosinophils % (Manual) Monocytes # (Manual) Eosinophils # (Manual) D-Dimer Heparin Anti-Xa Level 0.71 H ABG pH 7.460 H POC ABG pCO2 POC ABG pO2 ABG pO2 106.0 H ABG HCO3 18.9 L ABG O2 Saturation ABG Base Excess -4.4 L ABG Hemoglobin 6.8 L ABG Oxyhemoglobin VBG pH Oxyhemoglobin Sodium Potassium Chloride Carbon Dioxide BUN Creatinine Glucose POC Glucose 195 H Lactic Acid Calcium Ferritin AST Alkaline Phosphatase Magnesium Lactate Dehydrogenase Total Creatine Kinase CK-MB (CK-2) C-Reactive Protein Total Protein Albumin Troponin T HDL Cholesterol Urine WBC (Auto) Urine Creatinine Urine Total Protein Coronavirus (PCR) Crossmatch 05/30/20 05/30/20 05/30/20 06:07 08:37 12:33 WBC RBC Hgb Hct MCHC RDW Lymph % (Auto) [place] % (Auto) Eos % (Auto) Lymph # [place] # Lymph # (Auto) [place] # (Auto) Seg Neutrophils % Seg Neuts % (Manual) Lymphocytes % (Manual) Seg Neutrophils # Seg Neutrophils # Man Lymphocytes # (Manual) Monocytes % (Manual) Eosinophils % (Manual) Monocytes # (Manual) Eosinophils # (Manual) D-Dimer Heparin Anti-Xa Level 0.85 H ABG pH POC ABG pCO2 POC ABG pO2 ABG pO2 ABG HCO3 ABG O2 Saturation ABG Base Excess ABG Hemoglobin ABG Oxyhemoglobin VBG pH Oxyhemoglobin Sodium Potassium Chloride Carbon Dioxide BUN Creatinine Glucose POC Glucose 182 H 187 H Lactic Acid Calcium Ferritin AST Alkaline Phosphatase Magnesium Lactate Dehydrogenase Total Creatine Kinase CK-MB (CK-2) C-Reactive Protein Total Protein Albumin Troponin T HDL Cholesterol Urine WBC (Auto) Urine Creatinine Urine Total Protein Coronavirus (PCR) Crossmatch 05/30/20 05/30/20 05/30/20 15:58 17:57 23:36 WBC RBC Hgb Hct MCHC RDW Lymph % (Auto) [place] % (Auto) Eos % (Auto) Lymph # [place] # Lymph # (Auto) [place] # (Auto) Seg Neutrophils % Seg Neuts % (Manual) Lymphocytes % (Manual) Seg Neutrophils # Seg Neutrophils # Man Lymphocytes # (Manual) Monocytes % (Manual) Eosinophils % (Manual) Monocytes # (Manual) Eosinophils # (Manual) D-Dimer Heparin Anti-Xa Level 1.03 H ABG pH POC ABG pCO2 POC ABG pO2 ABG pO2 ABG HCO3 ABG O2 Saturation ABG Base Excess ABG Hemoglobin ABG Oxyhemoglobin VBG pH Oxyhemoglobin Sodium Potassium Chloride Carbon Dioxide BUN Creatinine Glucose POC Glucose 208 H 185 H Lactic Acid Calcium Ferritin AST Alkaline Phosphatase Magnesium Lactate Dehydrogenase Total Creatine Kinase CK-MB (CK-2) C-Reactive Protein Total Protein Albumin Troponin T HDL Cholesterol Urine WBC (Auto) Urine Creatinine Urine Total Protein Coronavirus (PCR) Crossmatch 05/31/20 05/31/20 05/31/20 02:16 03:55 06:16 WBC RBC Hgb 9.2 L Hct 27.5 L MCHC RDW Lymph % (Auto) [place] % (Auto) Eos % (Auto) Lymph # [place] # Lymph # (Auto) [place] # (Auto) Seg Neutrophils % Seg Neuts % (Manual) Lymphocytes % (Manual) Seg Neutrophils # Seg Neutrophils # Man Lymphocytes # (Manual) Monocytes % (Manual) Eosinophils % (Manual) Monocytes # (Manual) Eosinophils # (Manual) D-Dimer Heparin Anti-Xa Level ABG pH POC ABG pCO2 POC ABG pO2 ABG pO2 94.7 H ABG HCO3 18.6 L ABG O2 Saturation ABG Base Excess -5.5 L ABG Hemoglobin 7.9 L ABG Oxyhemoglobin VBG pH Oxyhemoglobin Sodium Potassium Chloride Carbon Dioxide BUN Creatinine Glucose POC Glucose 160 H Lactic Acid Calcium Ferritin AST Alkaline Phosphatase Magnesium Lactate Dehydrogenase Total Creatine Kinase CK-MB (CK-2) C-Reactive Protein Total Protein Albumin Troponin T HDL Cholesterol Urine WBC (Auto) Urine Creatinine Urine Total Protein Coronavirus (PCR) Crossmatch 05/31/20 05/31/20 05/31/20 12:20 13:03 18:13 WBC RBC Hgb Hct MCHC RDW Lymph % (Auto) [place] % (Auto) Eos % (Auto) Lymph # [place] # Lymph # (Auto) [place] # (Auto) Seg Neutrophils % Seg Neuts % (Manual) Lymphocytes % (Manual) Seg Neutrophils # Seg Neutrophils # Man Lymphocytes # (Manual) Monocytes % (Manual) Eosinophils % (Manual) Monocytes # (Manual) Eosinophils # (Manual) D-Dimer Heparin Anti-Xa Level ABG pH POC ABG pCO2 POC ABG pO2 ABG pO2 ABG HCO3 ABG O2 Saturation ABG Base Excess ABG Hemoglobin ABG Oxyhemoglobin VBG pH Oxyhemoglobin Sodium Potassium Chloride Carbon Dioxide 18 L BUN 48 H Creatinine 1.6 H Glucose 115 H POC Glucose 128 H 159 H Lactic Acid Calcium 8.3 L Ferritin AST Alkaline Phosphatase Magnesium Lactate Dehydrogenase Total Creatine Kinase CK-MB (CK-2) C-Reactive Protein Total Protein 5.4 L Albumin 2.4 L Troponin T HDL Cholesterol Urine WBC (Auto) Urine Creatinine Urine Total Protein Coronavirus (PCR) Crossmatch 05/31/20 06/01/20 06/01/20 23:51 04:00 05:48 WBC RBC Hgb Hct MCHC RDW Lymph % (Auto) [place] % (Auto) Eos % (Auto) Lymph # [place] # Lymph # (Auto) [place] # (Auto) Seg Neutrophils % Seg Neuts % (Manual) Lymphocytes % (Manual) Seg Neutrophils # Seg Neutrophils # Man Lymphocytes # (Manual) Monocytes % (Manual) Eosinophils % (Manual) Monocytes # (Manual) Eosinophils # (Manual) D-Dimer Heparin Anti-Xa Level ABG pH POC ABG pCO2 POC ABG pO2 ABG pO2 109.8 H ABG HCO3 18.8 L ABG O2 Saturation ABG Base Excess -5.9 L ABG Hemoglobin 7.8 L ABG Oxyhemoglobin VBG pH Oxyhemoglobin Sodium Potassium Chloride Carbon Dioxide BUN Creatinine Glucose POC Glucose 171 H 133 H Lactic Acid Calcium Ferritin AST Alkaline Phosphatase Magnesium Lactate Dehydrogenase Total Creatine Kinase CK-MB (CK-2) C-Reactive Protein Total Protein Albumin Troponin T HDL Cholesterol Urine WBC (Auto) Urine Creatinine Urine Total Protein Coronavirus (PCR) Crossmatch 06/01/20 06/01/20 06/02/20 12:28 17:29 00:08 WBC RBC Hgb Hct MCHC RDW Lymph % (Auto) [place] % (Auto) Eos % (Auto) Lymph # [place] # Lymph # (Auto) [place] # (Auto) Seg Neutrophils % Seg Neuts % (Manual) Lymphocytes % (Manual) Seg Neutrophils # Seg Neutrophils # Man Lymphocytes # (Manual) Monocytes % (Manual) Eosinophils % (Manual) Monocytes # (Manual) Eosinophils # (Manual) D-Dimer Heparin Anti-Xa Level ABG pH POC ABG pCO2 POC ABG pO2 ABG pO2 ABG HCO3 ABG O2 Saturation ABG Base Excess ABG Hemoglobin ABG Oxyhemoglobin VBG pH Oxyhemoglobin Sodium Potassium Chloride Carbon Dioxide BUN Creatinine Glucose POC Glucose 199 H 209 H 162 H Lactic Acid Calcium Ferritin AST Alkaline Phosphatase Magnesium Lactate Dehydrogenase Total Creatine Kinase CK-MB (CK-2) C-Reactive Protein Total Protein Albumin Troponin T HDL Cholesterol Urine WBC (Auto) Urine Creatinine Urine Total Protein Coronavirus (PCR) Crossmatch 06/02/20 06/02/20 06/02/20 04:20 04:20 04:44 WBC RBC Hgb 10.0 L Hct MCHC RDW Lymph % (Auto) [place] % (Auto) Eos % (Auto) Lymph # [place] # Lymph # (Auto) [place] # (Auto) Seg Neutrophils % Seg Neuts % (Manual) Lymphocytes % (Manual) Seg Neutrophils # Seg Neutrophils # Man Lymphocytes # (Manual) Monocytes % (Manual) Eosinophils % (Manual) Monocytes # (Manual) Eosinophils # (Manual) D-Dimer Heparin Anti-Xa Level 0.10 L ABG pH POC ABG pCO2 POC ABG pO2 ABG pO2 150.6 H ABG HCO3 ABG O2 Saturation ABG Base Excess -4.1 L ABG Hemoglobin 11.8 L ABG Oxyhemoglobin VBG pH Oxyhemoglobin Sodium Potassium Chloride Carbon Dioxide BUN Creatinine Glucose POC Glucose Lactic Acid Calcium Ferritin AST Alkaline Phosphatase Magnesium Lactate Dehydrogenase Total Creatine Kinase CK-MB (CK-2) C-Reactive Protein Total Protein Albumin Troponin T HDL Cholesterol Urine WBC (Auto) Urine Creatinine Urine Total Protein Coronavirus (PCR) Crossmatch 06/02/20 06/02/20 06/02/20 05:53 12:04 13:49 WBC RBC Hgb Hct MCHC RDW Lymph % (Auto) [place] % (Auto) Eos % (Auto) Lymph # [place] # Lymph # (Auto) [place] # (Auto) Seg Neutrophils % Seg Neuts % (Manual) Lymphocytes % (Manual) Seg Neutrophils # Seg Neutrophils # Man Lymphocytes # (Manual) Monocytes % (Manual) Eosinophils % (Manual) Monocytes # (Manual) Eosinophils # (Manual) D-Dimer Heparin Anti-Xa Level 0.28 L ABG pH POC ABG pCO2 POC ABG pO2 ABG pO2 ABG HCO3 ABG O2 Saturation ABG Base Excess ABG Hemoglobin ABG Oxyhemoglobin VBG pH Oxyhemoglobin Sodium Potassium Chloride Carbon Dioxide BUN Creatinine Glucose POC Glucose 149 H 220 H Lactic Acid Calcium Ferritin AST Alkaline Phosphatase Magnesium Lactate Dehydrogenase Total Creatine Kinase CK-MB (CK-2) C-Reactive Protein Total Protein Albumin Troponin T HDL Cholesterol Urine WBC (Auto) Urine Creatinine Urine Total Protein Coronavirus (PCR) Crossmatch 06/02/20 06/02/20 06/03/20 13:49 18:31 00:42 WBC RBC Hgb Hct MCHC RDW Lymph % (Auto) [place] % (Auto) Eos % (Auto) Lymph # [place] # Lymph # (Auto) [place] # (Auto) Seg Neutrophils % Seg Neuts % (Manual) Lymphocytes % (Manual) Seg Neutrophils # Seg Neutrophils # Man Lymphocytes # (Manual) Monocytes % (Manual) Eosinophils % (Manual) Monocytes # (Manual) Eosinophils # (Manual) D-Dimer 769.68 H Heparin Anti-Xa Level ABG pH POC ABG pCO2 POC ABG pO2 ABG pO2 ABG HCO3 ABG O2 Saturation ABG Base Excess ABG Hemoglobin ABG Oxyhemoglobin VBG pH Oxyhemoglobin Sodium Potassium Chloride Carbon Dioxide BUN Creatinine Glucose POC Glucose 225 H 212 H Lactic Acid Calcium Ferritin AST Alkaline Phosphatase Magnesium Lactate Dehydrogenase Total Creatine Kinase CK-MB (CK-2) C-Reactive Protein Total Protein Albumin Troponin T HDL Cholesterol Urine WBC (Auto) Urine Creatinine Urine Total Protein Coronavirus (PCR) Crossmatch 06/03/20 06/03/20 06/03/20 05:16 05:16 05:25 WBC 11.4 H RBC Hgb Hct MCHC RDW 16.4 H Lymph % (Auto) [place] % (Auto) Eos % (Auto) Lymph # [place] # Lymph # (Auto) [place] # (Auto) Seg Neutrophils % Seg Neuts % (Manual) Lymphocytes % (Manual) Seg Neutrophils # Seg Neutrophils # Man Lymphocytes # (Manual) Monocytes % (Manual) Eosinophils % (Manual) Monocytes # (Manual) Eosinophils # (Manual) D-Dimer Heparin Anti-Xa Level ABG pH POC ABG pCO2 POC ABG pO2 ABG pO2 160.9 H ABG HCO3 19.4 L ABG O2 Saturation ABG Base Excess -4.9 L ABG Hemoglobin 7.0 L ABG Oxyhemoglobin VBG pH Oxyhemoglobin Sodium Potassium Chloride Carbon Dioxide 18 L BUN 65 H Creatinine 2.0 H Glucose 175 H POC Glucose Lactic Acid Calcium 8.0 L Ferritin AST Alkaline Phosphatase Magnesium Lactate Dehydrogenase Total Creatine Kinase CK-MB (CK-2) C-Reactive Protein Total Protein 5.5 L Albumin 2.2 L Troponin T HDL Cholesterol Urine WBC (Auto) Urine Creatinine Urine Total Protein Coronavirus (PCR) Crossmatch 06/03/20 06/03/20 06/03/20 06:07 11:58 18:24 WBC RBC Hgb Hct MCHC RDW Lymph % (Auto) [place] % (Auto) Eos % (Auto) Lymph # [place] # Lymph # (Auto) [place] # (Auto) Seg Neutrophils % Seg Neuts % (Manual) Lymphocytes % (Manual) Seg Neutrophils # Seg Neutrophils # Man Lymphocytes # (Manual) Monocytes % (Manual) Eosinophils % (Manual) Monocytes # (Manual) Eosinophils # (Manual) D-Dimer Heparin Anti-Xa Level ABG pH POC ABG pCO2 POC ABG pO2 ABG pO2 ABG HCO3 ABG O2 Saturation ABG Base Excess ABG Hemoglobin ABG Oxyhemoglobin VBG pH Oxyhemoglobin Sodium Potassium Chloride Carbon Dioxide BUN Creatinine Glucose POC Glucose 177 H 163 H 211 H Lactic Acid Calcium Ferritin AST Alkaline Phosphatase Magnesium Lactate Dehydrogenase Total Creatine Kinase CK-MB (CK-2) C-Reactive Protein Total Protein Albumin Troponin T HDL Cholesterol Urine WBC (Auto) Urine Creatinine Urine Total Protein Coronavirus (PCR) Crossmatch 06/03/20 06/03/20 06/04/20 21:50 Unknown 00:26 WBC RBC Hgb Hct MCHC RDW Lymph % (Auto) [place] % (Auto) Eos % (Auto) Lymph # [place] # Lymph # (Auto) [place] # (Auto) Seg Neutrophils % Seg Neuts % (Manual) Lymphocytes % (Manual) Seg Neutrophils # Seg Neutrophils # Man Lymphocytes # (Manual) Monocytes % (Manual) Eosinophils % (Manual) Monocytes # (Manual) Eosinophils # (Manual) D-Dimer Heparin Anti-Xa Level ABG pH POC ABG pCO2 POC ABG pO2 ABG pO2 ABG HCO3 ABG O2 Saturation ABG Base Excess ABG Hemoglobin ABG Oxyhemoglobin VBG pH Oxyhemoglobin Sodium 135 L Potassium Chloride Carbon Dioxide 18 L BUN Creatinine Glucose POC Glucose 241 H Lactic Acid Calcium Ferritin AST Alkaline Phosphatase Magnesium Lactate Dehydrogenase Total Creatine Kinase CK-MB (CK-2) C-Reactive Protein Total Protein Albumin Troponin T HDL Cholesterol Urine WBC (Auto) 11.0 H Urine Creatinine Urine Total Protein Coronavirus (PCR) Crossmatch 06/04/20 06/04/20 06/04/20 03:35 04:19 04:19 WBC RBC 3.15 L Hgb 8.9 L Hct 26.8 L D MCHC RDW 15.9 H Lymph % (Auto) 6.0 L [place] % (Auto) Eos % (Auto) Lymph # 0.6 L [place] # Lymph # (Auto) [place] # (Auto) Seg Neutrophils % 86.6 H Seg Neuts % (Manual) Lymphocytes % (Manual) Seg Neutrophils # 9.1 H Seg Neutrophils # Man Lymphocytes # (Manual) Monocytes % (Manual) Eosinophils % (Manual) Monocytes # (Manual) Eosinophils # (Manual) D-Dimer Heparin Anti-Xa Level ABG pH 7.331 L POC ABG pCO2 POC ABG pO2 ABG pO2 ABG HCO3 ABG O2 Saturation ABG Base Excess -4.7 L ABG Hemoglobin 11.0 L ABG Oxyhemoglobin VBG pH Oxyhemoglobin 93.9 L Sodium 136 L Potassium Chloride Carbon Dioxide 20 L BUN 73 H Creatinine 2.0 H Glucose 192 H POC Glucose Lactic Acid Calcium 8.0 L Ferritin AST Alkaline Phosphatase Magnesium Lactate Dehydrogenase 271 H Total Creatine Kinase CK-MB (CK-2) C-Reactive Protein 2.20 H Total Protein 5.0 L Albumin 2.0 L Troponin T HDL Cholesterol Urine WBC (Auto) Urine Creatinine Urine Total Protein Coronavirus (PCR) Crossmatch 06/04/20 06/04/20 06/04/20 04:19 05:51 11:48 WBC RBC Hgb Hct MCHC RDW Lymph % (Auto) [place] % (Auto) Eos % (Auto) Lymph # [place] # Lymph # (Auto) [place] # (Auto) Seg Neutrophils % Seg Neuts % (Manual) Lymphocytes % (Manual) Seg Neutrophils # Seg Neutrophils # Man Lymphocytes # (Manual) Monocytes % (Manual) Eosinophils % (Manual) Monocytes # (Manual) Eosinophils # (Manual) D-Dimer 414.52 H Heparin Anti-Xa Level ABG pH POC ABG pCO2 POC ABG pO2 ABG pO2 ABG HCO3 ABG O2 Saturation ABG Base Excess ABG Hemoglobin ABG Oxyhemoglobin VBG pH Oxyhemoglobin Sodium Potassium Chloride Carbon Dioxide BUN Creatinine Glucose POC Glucose 179 H 213 H Lactic Acid Calcium Ferritin AST Alkaline Phosphatase Magnesium Lactate Dehydrogenase Total Creatine Kinase CK-MB (CK-2) C-Reactive Protein Total Protein Albumin Troponin T HDL Cholesterol Urine WBC (Auto) Urine Creatinine Urine Total Protein Coronavirus (PCR) Crossmatch 06/04/20 06/05/20 06/05/20 18:25 00:16 05:00 WBC RBC Hgb Hct MCHC RDW Lymph % (Auto) [place] % (Auto) Eos % (Auto) Lymph # [place] # Lymph # (Auto) [place] # (Auto) Seg Neutrophils % Seg Neuts % (Manual) Lymphocytes % (Manual) Seg Neutrophils # Seg Neutrophils # Man Lymphocytes # (Manual) Monocytes % (Manual) Eosinophils % (Manual) Monocytes # (Manual) Eosinophils # (Manual) D-Dimer Heparin Anti-Xa Level ABG pH 7.286 L POC ABG pCO2 POC ABG pO2 ABG pO2 96.2 H ABG HCO3 ABG O2 Saturation ABG Base Excess -6.3 L ABG Hemoglobin 8.8 L ABG Oxyhemoglobin VBG pH Oxyhemoglobin 94.8 L Sodium Potassium Chloride Carbon Dioxide BUN Creatinine Glucose POC Glucose 238 H 183 H Lactic Acid Calcium Ferritin AST Alkaline Phosphatase Magnesium Lactate Dehydrogenase Total Creatine Kinase CK-MB (CK-2) C-Reactive Protein Total Protein Albumin Troponin T HDL Cholesterol Urine WBC (Auto) Urine Creatinine Urine Total Protein Coronavirus (PCR) Crossmatch 06/05/20 06/05/20 06/05/20 05:39 07:25 07:25 WBC RBC 2.97 L Hgb 8.7 L Hct 25.7 L MCHC RDW 16.0 H Lymph % (Auto) 8.8 L [place] % (Auto) 13.3 H Eos % (Auto) Lymph # 0.8 L [place] # 1.3 H Lymph # (Auto) [place] # (Auto) Seg Neutrophils % 77.3 H Seg Neuts % (Manual) Lymphocytes % (Manual) Seg Neutrophils # Seg Neutrophils # Man Lymphocytes # (Manual) Monocytes % (Manual) Eosinophils % (Manual) Monocytes # (Manual) Eosinophils # (Manual) D-Dimer Heparin Anti-Xa Level ABG pH POC ABG pCO2 POC ABG pO2 ABG pO2 ABG HCO3 ABG O2 Saturation ABG Base Excess ABG Hemoglobin ABG Oxyhemoglobin VBG pH Oxyhemoglobin Sodium 133 L Potassium Chloride Carbon Dioxide 17 L BUN 89 H Creatinine 2.8 H Glucose 176 H POC Glucose 149 H Lactic Acid Calcium 7.7 L Ferritin AST Alkaline Phosphatase Magnesium Lactate Dehydrogenase Total Creatine Kinase CK-MB (CK-2) C-Reactive Protein Total Protein 4.2 L Albumin 1.9 L Troponin T HDL Cholesterol Urine WBC (Auto) Urine Creatinine Urine Total Protein Coronavirus (PCR) Crossmatch 06/05/20 06/05/20 06/05/20 07:25 12:05 15:41 WBC RBC Hgb Hct MCHC RDW Lymph % (Auto) [place] % (Auto) Eos % (Auto) Lymph # [place] # Lymph # (Auto) [place] # (Auto) Seg Neutrophils % Seg Neuts % (Manual) Lymphocytes % (Manual) Seg Neutrophils # Seg Neutrophils # Man Lymphocytes # (Manual) Monocytes % (Manual) Eosinophils % (Manual) Monocytes # (Manual) Eosinophils # (Manual) D-Dimer Heparin Anti-Xa Level 0.76 H 0.81 H ABG pH POC ABG pCO2 POC ABG pO2 ABG pO2 ABG HCO3 ABG O2 Saturation ABG Base Excess ABG Hemoglobin ABG Oxyhemoglobin VBG pH Oxyhemoglobin Sodium Potassium Chloride Carbon Dioxide BUN Creatinine Glucose POC Glucose 198 H Lactic Acid Calcium Ferritin AST Alkaline Phosphatase Magnesium Lactate Dehydrogenase Total Creatine Kinase CK-MB (CK-2) C-Reactive Protein Total Protein Albumin Troponin T HDL Cholesterol Urine WBC (Auto) Urine Creatinine Urine Total Protein Coronavirus (PCR) Crossmatch 06/05/20 06/05/20 06/06/20 18:08 23:25 04:00 WBC RBC Hgb Hct MCHC RDW Lymph % (Auto) [place] % (Auto) Eos % (Auto) Lymph # [place] # Lymph # (Auto) [place] # (Auto) Seg Neutrophils % Seg Neuts % (Manual) Lymphocytes % (Manual) Seg Neutrophils # Seg Neutrophils # Man Lymphocytes # (Manual) Monocytes % (Manual) Eosinophils % (Manual) Monocytes # (Manual) Eosinophils # (Manual) D-Dimer Heparin Anti-Xa Level ABG pH POC ABG pCO2 POC ABG pO2 ABG pO2 ABG HCO3 ABG O2 Saturation ABG Base Excess ABG Hemoglobin ABG Oxyhemoglobin VBG pH Oxyhemoglobin Sodium Potassium Chloride Carbon Dioxide BUN Creatinine Glucose POC Glucose 223 H 169 H Lactic Acid Calcium Ferritin AST Alkaline Phosphatase Magnesium Lactate Dehydrogenase Total Creatine Kinase CK-MB (CK-2) C-Reactive Protein Total Protein Albumin Troponin T HDL Cholesterol Urine WBC (Auto) 15.0 H Urine Creatinine Urine Total Protein Coronavirus (PCR) Crossmatch 06/06/20 06/06/20 06/06/20 04:00 05:33 05:38 WBC RBC 2.97 L Hgb 8.7 L Hct 26.8 L MCHC RDW 16.8 H Lymph % (Auto) [place] % (Auto) Eos % (Auto) Lymph # [place] # Lymph # (Auto) [place] # (Auto) Seg Neutrophils % Seg Neuts % (Manual) Lymphocytes % (Manual) Seg Neutrophils # Seg Neutrophils # Man Lymphocytes # (Manual) Monocytes % (Manual) Eosinophils % (Manual) Monocytes # (Manual) Eosinophils # (Manual) D-Dimer Heparin Anti-Xa Level ABG pH POC ABG pCO2 POC ABG pO2 ABG pO2 ABG HCO3 ABG O2 Saturation ABG Base Excess ABG Hemoglobin ABG Oxyhemoglobin VBG pH Oxyhemoglobin Sodium Potassium Chloride Carbon Dioxide BUN Creatinine Glucose POC Glucose 186 H Lactic Acid Calcium Ferritin AST Alkaline Phosphatase Magnesium Lactate Dehydrogenase Total Creatine Kinase CK-MB (CK-2) C-Reactive Protein Total Protein Albumin Troponin T HDL Cholesterol Urine WBC (Auto) Urine Creatinine 82.2 H Urine Total Protein 196 H Coronavirus (PCR) Crossmatch 06/06/20 06/06/20 06/06/20 05:38 12:25 17:03 WBC RBC Hgb Hct MCHC RDW Lymph % (Auto) [place] % (Auto) Eos % (Auto) Lymph # [place] # Lymph # (Auto) [place] # (Auto) Seg Neutrophils % Seg Neuts % (Manual) Lymphocytes % (Manual) Seg Neutrophils # Seg Neutrophils # Man Lymphocytes # (Manual) Monocytes % (Manual) Eosinophils % (Manual) Monocytes # (Manual) Eosinophils # (Manual) D-Dimer Heparin Anti-Xa Level ABG pH POC ABG pCO2 POC ABG pO2 ABG pO2 ABG HCO3 ABG O2 Saturation ABG Base Excess ABG Hemoglobin ABG Oxyhemoglobin VBG pH Oxyhemoglobin Sodium 134 L Potassium 5.2 H Chloride Carbon Dioxide 18 L BUN 97 H Creatinine 2.5 H Glucose 193 H POC Glucose 239 H 252 H Lactic Acid Calcium 7.5 L Ferritin AST Alkaline Phosphatase Magnesium Lactate Dehydrogenase Total Creatine Kinase CK-MB (CK-2) C-Reactive Protein Total Protein 4.1 L Albumin 1.9 L Troponin T HDL Cholesterol Urine WBC (Auto) Urine Creatinine Urine Total Protein Coronavirus (PCR) Crossmatch 06/07/20 06/07/20 06/07/20 00:16 01:49 04:00 WBC RBC 2.91 L Hgb 8.4 L Hct 25.0 L MCHC RDW 16.1 H Lymph % (Auto) 5.7 L [place] % (Auto) 10.5 H Eos % (Auto) Lymph # 0.6 L [place] # 1.1 H Lymph # (Auto) [place] # (Auto) Seg Neutrophils % 83.6 H Seg Neuts % (Manual) Lymphocytes % (Manual) Seg Neutrophils # 9.1 H Seg Neutrophils # Man Lymphocytes # (Manual) Monocytes % (Manual) Eosinophils % (Manual) Monocytes # (Manual) Eosinophils # (Manual) D-Dimer Heparin Anti-Xa Level 0.26 L ABG pH POC ABG pCO2 POC ABG pO2 ABG pO2 ABG HCO3 ABG O2 Saturation ABG Base Excess ABG Hemoglobin ABG Oxyhemoglobin VBG pH Oxyhemoglobin Sodium Potassium Chloride Carbon Dioxide BUN Creatinine Glucose POC Glucose 173 H Lactic Acid Calcium Ferritin AST Alkaline Phosphatase Magnesium Lactate Dehydrogenase Total Creatine Kinase CK-MB (CK-2) C-Reactive Protein Total Protein Albumin Troponin T HDL Cholesterol Urine WBC (Auto) Urine Creatinine Urine Total Protein Coronavirus (PCR) Crossmatch 06/07/20 06/07/20 06/07/20 04:00 04:54 05:51 WBC RBC Hgb Hct MCHC RDW Lymph % (Auto) [place] % (Auto) Eos % (Auto) Lymph # [place] # Lymph # (Auto) [place] # (Auto) Seg Neutrophils % Seg Neuts % (Manual) Lymphocytes % (Manual) Seg Neutrophils # Seg Neutrophils # Man Lymphocytes # (Manual) Monocytes % (Manual) Eosinophils % (Manual) Monocytes # (Manual) Eosinophils # (Manual) D-Dimer Heparin Anti-Xa Level ABG pH 7.317 L POC ABG pCO2 POC ABG pO2 ABG pO2 71.4 L ABG HCO3 ABG O2 Saturation 94.3 L ABG Base Excess -4.8 L ABG Hemoglobin 7.1 L ABG Oxyhemoglobin VBG pH Oxyhemoglobin 92.2 L Sodium 133 L Potassium Chloride Carbon Dioxide 18 L BUN 100 H Creatinine 2.5 H Glucose 158 H POC Glucose 168 H Lactic Acid Calcium 7.6 L Ferritin AST Alkaline Phosphatase Magnesium Lactate Dehydrogenase Total Creatine Kinase CK-MB (CK-2) C-Reactive Protein Total Protein 4.7 L Albumin 2.0 L Troponin T HDL Cholesterol Urine WBC (Auto) Urine Creatinine Urine Total Protein Coronavirus (PCR) Crossmatch 06/07/20 06/07/20 06/07/20 12:03 17:17 20:10 WBC RBC Hgb Hct MCHC RDW Lymph % (Auto) [place] % (Auto) Eos % (Auto) Lymph # [place] # Lymph # (Auto) [place] # (Auto) Seg Neutrophils % Seg Neuts % (Manual) Lymphocytes % (Manual) Seg Neutrophils # Seg Neutrophils # Man Lymphocytes # (Manual) Monocytes % (Manual) Eosinophils % (Manual) Monocytes # (Manual) Eosinophils # (Manual) D-Dimer Heparin Anti-Xa Level 0.17 L ABG pH POC ABG pCO2 POC ABG pO2 ABG pO2 ABG HCO3 ABG O2 Saturation ABG Base Excess ABG Hemoglobin ABG Oxyhemoglobin VBG pH Oxyhemoglobin Sodium Potassium Chloride Carbon Dioxide BUN Creatinine Glucose POC Glucose 276 H 281 H Lactic Acid Calcium Ferritin AST Alkaline Phosphatase Magnesium Lactate Dehydrogenase Total Creatine Kinase CK-MB (CK-2) C-Reactive Protein Total Protein Albumin Troponin T HDL Cholesterol Urine WBC (Auto) Urine Creatinine Urine Total Protein Coronavirus (PCR) Crossmatch 06/08/20 06/08/20 06/08/20 00:02 04:47 04:47 WBC 16.4 H RBC 3.07 L Hgb 8.6 L Hct 26.5 L MCHC RDW 16.3 H Lymph % (Auto) [place] % (Auto) Eos % (Auto) Lymph # [place] # Lymph # (Auto) [place] # (Auto) Seg Neutrophils % Seg Neuts % (Manual) 90.0 H Lymphocytes % (Manual) 3.0 L Seg Neutrophils # Seg Neutrophils # Man 14.8 H Lymphocytes # (Manual) 0.5 L Monocytes % (Manual) Eosinophils % (Manual) Monocytes # (Manual) 1.1 H Eosinophils # (Manual) D-Dimer Heparin Anti-Xa Level ABG pH POC ABG pCO2 POC ABG pO2 ABG pO2 ABG HCO3 ABG O2 Saturation ABG Base Excess ABG Hemoglobin ABG Oxyhemoglobin VBG pH Oxyhemoglobin Sodium 129 L Potassium Chloride 95.6 L Carbon Dioxide 17 L BUN 106 H Creatinine 2.5 H Glucose 213 H POC Glucose 242 H Lactic Acid Calcium 7.6 L Ferritin AST Alkaline Phosphatase Magnesium Lactate Dehydrogenase Total Creatine Kinase CK-MB (CK-2) C-Reactive Protein Total Protein 5.0 L Albumin 2.1 L Troponin T HDL Cholesterol Urine WBC (Auto) Urine Creatinine Urine Total Protein Coronavirus (PCR) Crossmatch 06/08/20 06/08/20 06/08/20 05:40 11:55 17:54 WBC RBC Hgb Hct MCHC RDW Lymph % (Auto) [place] % (Auto) Eos % (Auto) Lymph # [place] # Lymph # (Auto) [place] # (Auto) Seg Neutrophils % Seg Neuts % (Manual) Lymphocytes % (Manual) Seg Neutrophils # Seg Neutrophils # Man Lymphocytes # (Manual) Monocytes % (Manual) Eosinophils % (Manual) Monocytes # (Manual) Eosinophils # (Manual) D-Dimer Heparin Anti-Xa Level ABG pH POC ABG pCO2 POC ABG pO2 ABG pO2 ABG HCO3 ABG O2 Saturation ABG Base Excess ABG Hemoglobin ABG Oxyhemoglobin VBG pH Oxyhemoglobin Sodium Potassium Chloride Carbon Dioxide BUN Creatinine Glucose POC Glucose 221 H 218 H 163 H Lactic Acid Calcium Ferritin AST Alkaline Phosphatase Magnesium Lactate Dehydrogenase Total Creatine Kinase CK-MB (CK-2) C-Reactive Protein Total Protein Albumin Troponin T HDL Cholesterol Urine WBC (Auto) Urine Creatinine Urine Total Protein Coronavirus (PCR) Crossmatch 06/08/20 06/09/20 06/09/20 22:01 00:09 05:16 WBC 19.0 H RBC 3.35 L Hgb 9.2 L Hct 28.5 L MCHC RDW 16.3 H Lymph % (Auto) [place] % (Auto) Eos % (Auto) Lymph # [place] # Lymph # (Auto) [place] # (Auto) Seg Neutrophils % Seg Neuts % (Manual) 85.0 H Lymphocytes % (Manual) 7.0 L Seg Neutrophils # Seg Neutrophils # Man 16.2 H Lymphocytes # (Manual) Monocytes % (Manual) Eosinophils % (Manual) Monocytes # (Manual) 1.3 H Eosinophils # (Manual) D-Dimer Heparin Anti-Xa Level ABG pH POC ABG pCO2 POC ABG pO2 ABG pO2 ABG HCO3 ABG O2 Saturation ABG Base Excess ABG Hemoglobin ABG Oxyhemoglobin VBG pH Oxyhemoglobin Sodium Potassium Chloride Carbon Dioxide BUN Creatinine Glucose POC Glucose 182 H 150 H Lactic Acid Calcium Ferritin AST Alkaline Phosphatase Magnesium Lactate Dehydrogenase Total Creatine Kinase CK-MB (CK-2) C-Reactive Protein Total Protein Albumin Troponin T HDL Cholesterol Urine WBC (Auto) Urine Creatinine Urine Total Protein Coronavirus (PCR) Crossmatch 06/09/20 06/09/20 06/09/20 05:16 05:24 11:29 WBC RBC Hgb Hct MCHC RDW Lymph % (Auto) [place] % (Auto) Eos % (Auto) Lymph # [place] # Lymph # (Auto) [place] # (Auto) Seg Neutrophils % Seg Neuts % (Manual) Lymphocytes % (Manual) Seg Neutrophils # Seg Neutrophils # Man Lymphocytes # (Manual) Monocytes % (Manual) Eosinophils % (Manual) Monocytes # (Manual) Eosinophils # (Manual) D-Dimer Heparin Anti-Xa Level ABG pH POC ABG pCO2 POC ABG pO2 ABG pO2 ABG HCO3 ABG O2 Saturation ABG Base Excess ABG Hemoglobin ABG Oxyhemoglobin VBG pH Oxyhemoglobin Sodium 133 L Potassium Chloride Carbon Dioxide 19 L BUN 109 H Creatinine 2.1 H Glucose 133 H POC Glucose 128 H 119 H Lactic Acid Calcium 7.7 L Ferritin AST Alkaline Phosphatase < 5 L Magnesium Lactate Dehydrogenase Total Creatine Kinase CK-MB (CK-2) C-Reactive Protein Total Protein 4.6 L Albumin < 0.2 L Troponin T HDL Cholesterol Urine WBC (Auto) Urine Creatinine Urine Total Protein Coronavirus (PCR) Crossmatch 06/09/20 06/10/20 06/10/20 17:32 00:00 05:49 WBC RBC Hgb Hct MCHC RDW Lymph % (Auto) [place] % (Auto) Eos % (Auto) Lymph # [place] # Lymph # (Auto) [place] # (Auto) Seg Neutrophils % Seg Neuts % (Manual) Lymphocytes % (Manual) Seg Neutrophils # Seg Neutrophils # Man Lymphocytes # (Manual) Monocytes % (Manual) Eosinophils % (Manual) Monocytes # (Manual) Eosinophils # (Manual) D-Dimer Heparin Anti-Xa Level 0.19 L ABG pH POC ABG pCO2 POC ABG pO2 ABG pO2 ABG HCO3 ABG O2 Saturation ABG Base Excess ABG Hemoglobin ABG Oxyhemoglobin VBG pH Oxyhemoglobin Sodium Potassium Chloride Carbon Dioxide BUN Creatinine Glucose POC Glucose 106 H 117 H Lactic Acid Calcium Ferritin AST Alkaline Phosphatase Magnesium Lactate Dehydrogenase Total Creatine Kinase CK-MB (CK-2) C-Reactive Protein Total Protein Albumin Troponin T HDL Cholesterol Urine WBC (Auto) Urine Creatinine Urine Total Protein Coronavirus (PCR) Crossmatch 06/10/20 06/10/20 06/10/20 05:54 07:40 11:40 WBC RBC Hgb Hct MCHC RDW Lymph % (Auto) [place] % (Auto) Eos % (Auto) Lymph # [place] # Lymph # (Auto) [place] # (Auto) Seg Neutrophils % Seg Neuts % (Manual) Lymphocytes % (Manual) Seg Neutrophils # Seg Neutrophils # Man Lymphocytes # (Manual) Monocytes % (Manual) Eosinophils % (Manual) Monocytes # (Manual) Eosinophils # (Manual) D-Dimer Heparin Anti-Xa Level ABG pH POC ABG pCO2 POC ABG pO2 ABG pO2 ABG HCO3 ABG O2 Saturation ABG Base Excess ABG Hemoglobin ABG Oxyhemoglobin VBG pH Oxyhemoglobin Sodium 146 H D Potassium Chloride Carbon Dioxide 20 L BUN 99 H Creatinine 1.9 H Glucose 121 H POC Glucose 127 H 138 H Lactic Acid Calcium 8.2 L Ferritin AST Alkaline Phosphatase Magnesium Lactate Dehydrogenase Total Creatine Kinase CK-MB (CK-2) C-Reactive Protein Total Protein Albumin Troponin T HDL Cholesterol Urine WBC (Auto) Urine Creatinine Urine Total Protein Coronavirus (PCR) Crossmatch 06/10/20 06/10/20 06/10/20 14:44 17:31 23:22 WBC RBC Hgb Hct MCHC RDW Lymph % (Auto) [place] % (Auto) Eos % (Auto) Lymph # [place] # Lymph # (Auto) [place] # (Auto) Seg Neutrophils % Seg Neuts % (Manual) Lymphocytes % (Manual) Seg Neutrophils # Seg Neutrophils # Man Lymphocytes # (Manual) Monocytes % (Manual) Eosinophils % (Manual) Monocytes # (Manual) Eosinophils # (Manual) D-Dimer Heparin Anti-Xa Level 0.17 L ABG pH POC ABG pCO2 POC ABG pO2 ABG pO2 ABG HCO3 ABG O2 Saturation ABG Base Excess ABG Hemoglobin ABG Oxyhemoglobin VBG pH Oxyhemoglobin Sodium Potassium Chloride Carbon Dioxide BUN Creatinine Glucose POC Glucose 128 H 114 H Lactic Acid Calcium Ferritin AST Alkaline Phosphatase Magnesium Lactate Dehydrogenase Total Creatine Kinase CK-MB (CK-2) C-Reactive Protein Total Protein Albumin Troponin T HDL Cholesterol Urine WBC (Auto) Urine Creatinine Urine Total Protein Coronavirus (PCR) Crossmatch 06/11/20 06/11/20 06/11/20 00:22 03:45 03:45 WBC 14.6 H RBC 2.77 L Hgb 7.9 L Hct 24.3 L MCHC RDW 16.8 H Lymph % (Auto) 6.6 L [place] % (Auto) 8.5 H Eos % (Auto) Lymph # 1.0 L [place] # 1.2 H Lymph # (Auto) [place] # (Auto) Seg Neutrophils % 82.9 H Seg Neuts % (Manual) Lymphocytes % (Manual) Seg Neutrophils # 12.1 H Seg Neutrophils # Man Lymphocytes # (Manual) Monocytes % (Manual) Eosinophils % (Manual) Monocytes # (Manual) Eosinophils # (Manual) D-Dimer Heparin Anti-Xa Level 0.24 L ABG pH POC ABG pCO2 POC ABG pO2 ABG pO2 ABG HCO3 ABG O2 Saturation ABG Base Excess ABG Hemoglobin ABG Oxyhemoglobin VBG pH Oxyhemoglobin Sodium Potassium Chloride Carbon Dioxide 20 L BUN 88 H Creatinine 1.5 H Glucose 111 H POC Glucose Lactic Acid Calcium 8.2 L Ferritin AST Alkaline Phosphatase Magnesium Lactate Dehydrogenase Total Creatine Kinase CK-MB (CK-2) C-Reactive Protein Total Protein Albumin Troponin T HDL Cholesterol Urine WBC (Auto) Urine Creatinine Urine Total Protein Coronavirus (PCR) Crossmatch 06/11/20 06/11/20 06/11/20 06:03 10:22 11:11 WBC RBC Hgb Hct MCHC RDW Lymph % (Auto) [place] % (Auto) Eos % (Auto) Lymph # [place] # Lymph # (Auto) [place] # (Auto) Seg Neutrophils % Seg Neuts % (Manual) Lymphocytes % (Manual) Seg Neutrophils # Seg Neutrophils # Man Lymphocytes # (Manual) Monocytes % (Manual) Eosinophils % (Manual) Monocytes # (Manual) Eosinophils # (Manual) D-Dimer Heparin Anti-Xa Level 0.26 L ABG pH POC ABG pCO2 POC ABG pO2 ABG pO2 ABG HCO3 ABG O2 Saturation ABG Base Excess ABG Hemoglobin 9.6 L ABG Oxyhemoglobin VBG pH Oxyhemoglobin Sodium Potassium Chloride Carbon Dioxide BUN Creatinine Glucose POC Glucose 114 H Lactic Acid Calcium Ferritin AST Alkaline Phosphatase Magnesium Lactate Dehydrogenase Total Creatine Kinase CK-MB (CK-2) C-Reactive Protein Total Protein Albumin Troponin T HDL Cholesterol Urine WBC (Auto) Urine Creatinine Urine Total Protein Coronavirus (PCR) Crossmatch 06/11/20 06/11/20 06/12/20 12:24 17:24 00:21 WBC RBC Hgb Hct MCHC RDW Lymph % (Auto) [place] % (Auto) Eos % (Auto) Lymph # [place] # Lymph # (Auto) [place] # (Auto) Seg Neutrophils % Seg Neuts % (Manual) Lymphocytes % (Manual) Seg Neutrophils # Seg Neutrophils # Man Lymphocytes # (Manual) Monocytes % (Manual) Eosinophils % (Manual) Monocytes # (Manual) Eosinophils # (Manual) D-Dimer Heparin Anti-Xa Level ABG pH POC ABG pCO2 POC ABG pO2 ABG pO2 ABG HCO3 ABG O2 Saturation ABG Base Excess ABG Hemoglobin ABG Oxyhemoglobin VBG pH Oxyhemoglobin Sodium Potassium Chloride Carbon Dioxide BUN Creatinine Glucose POC Glucose 119 H 126 H 117 H Lactic Acid Calcium Ferritin AST Alkaline Phosphatase Magnesium Lactate Dehydrogenase Total Creatine Kinase CK-MB (CK-2) C-Reactive Protein Total Protein Albumin Troponin T HDL Cholesterol Urine WBC (Auto) Urine Creatinine Urine Total Protein Coronavirus (PCR) Crossmatch 06/12/20 06/12/20 06/12/20 02:46 02:46 05:46 WBC 13.2 H RBC 2.83 L Hgb 8.3 L Hct 24.3 L MCHC RDW 16.6 H Lymph % (Auto) 6.2 L [place] % (Auto) 9.5 H Eos % (Auto) Lymph # 0.8 L [place] # 1.3 H Lymph # (Auto) [place] # (Auto) Seg Neutrophils % 81.9 H Seg Neuts % (Manual) Lymphocytes % (Manual) Seg Neutrophils # 10.9 H Seg Neutrophils # Man Lymphocytes # (Manual) Monocytes % (Manual) Eosinophils % (Manual) Monocytes # (Manual) Eosinophils # (Manual) D-Dimer Heparin Anti-Xa Level ABG pH POC ABG pCO2 POC ABG pO2 ABG pO2 ABG HCO3 ABG O2 Saturation ABG Base Excess ABG Hemoglobin ABG Oxyhemoglobin VBG pH Oxyhemoglobin Sodium Potassium 3.5 L Chloride Carbon Dioxide BUN 77 H Creatinine 1.3 H Glucose POC Glucose 132 H Lactic Acid Calcium 8.3 L Ferritin AST Alkaline Phosphatase Magnesium Lactate Dehydrogenase Total Creatine Kinase CK-MB (CK-2) C-Reactive Protein Total Protein Albumin Troponin T HDL Cholesterol Urine WBC (Auto) Urine Creatinine Urine Total Protein Coronavirus (PCR) Crossmatch 06/12/20 06/12/20 06/12/20 09:20 12:16 17:48 WBC RBC Hgb Hct MCHC RDW Lymph % (Auto) [place] % (Auto) Eos % (Auto) Lymph # [place] # Lymph # (Auto) [place] # (Auto) Seg Neutrophils % Seg Neuts % (Manual) Lymphocytes % (Manual) Seg Neutrophils # Seg Neutrophils # Man Lymphocytes # (Manual) Monocytes % (Manual) Eosinophils % (Manual) Monocytes # (Manual) Eosinophils # (Manual) D-Dimer Heparin Anti-Xa Level ABG pH POC ABG pCO2 POC ABG pO2 ABG pO2 91.1 H ABG HCO3 ABG O2 Saturation ABG Base Excess ABG Hemoglobin ABG Oxyhemoglobin VBG pH Oxyhemoglobin 94.8 L Sodium Potassium Chloride Carbon Dioxide BUN Creatinine Glucose POC Glucose 167 H 182 H Lactic Acid Calcium Ferritin AST Alkaline Phosphatase Magnesium Lactate Dehydrogenase Total Creatine Kinase CK-MB (CK-2) C-Reactive Protein Total Protein Albumin Troponin T HDL Cholesterol Urine WBC (Auto) Urine Creatinine Urine Total Protein Coronavirus (PCR) Crossmatch 06/13/20 06/13/20 06/13/20 00:08 05:37 09:09 WBC RBC Hgb Hct MCHC RDW Lymph % (Auto) [place] % (Auto) Eos % (Auto) Lymph # [place] # Lymph # (Auto) [place] # (Auto) Seg Neutrophils % Seg Neuts % (Manual) Lymphocytes % (Manual) Seg Neutrophils # Seg Neutrophils # Man Lymphocytes # (Manual) Monocytes % (Manual) Eosinophils % (Manual) Monocytes # (Manual) Eosinophils # (Manual) D-Dimer Heparin Anti-Xa Level 0.86 H ABG pH POC ABG pCO2 POC ABG pO2 ABG pO2 ABG HCO3 ABG O2 Saturation ABG Base Excess ABG Hemoglobin ABG Oxyhemoglobin VBG pH Oxyhemoglobin Sodium Potassium Chloride Carbon Dioxide BUN Creatinine Glucose POC Glucose 142 H 119 H Lactic Acid Calcium Ferritin AST Alkaline Phosphatase Magnesium Lactate Dehydrogenase Total Creatine Kinase CK-MB (CK-2) C-Reactive Protein Total Protein Albumin Troponin T HDL Cholesterol Urine WBC (Auto) Urine Creatinine Urine Total Protein Coronavirus (PCR) Crossmatch 06/13/20 06/13/20 06/13/20 12:28 17:55 21:17 WBC RBC Hgb Hct MCHC RDW Lymph % (Auto) [place] % (Auto) Eos % (Auto) Lymph # [place] # Lymph # (Auto) [place] # (Auto) Seg Neutrophils % Seg Neuts % (Manual) Lymphocytes % (Manual) Seg Neutrophils # Seg Neutrophils # Man Lymphocytes # (Manual) Monocytes % (Manual) Eosinophils % (Manual) Monocytes # (Manual) Eosinophils # (Manual) D-Dimer Heparin Anti-Xa Level ABG pH POC ABG pCO2 POC ABG pO2 ABG pO2 ABG HCO3 ABG O2 Saturation ABG Base Excess ABG Hemoglobin ABG Oxyhemoglobin VBG pH Oxyhemoglobin Sodium Potassium Chloride Carbon Dioxide BUN 61 H Creatinine Glucose 131 H POC Glucose 165 H 174 H Lactic Acid Calcium Ferritin AST Alkaline Phosphatase Magnesium Lactate Dehydrogenase Total Creatine Kinase CK-MB (CK-2) C-Reactive Protein Total Protein Albumin Troponin T HDL Cholesterol Urine WBC (Auto) Urine Creatinine Urine Total Protein Coronavirus (PCR) Crossmatch 06/13/20 06/13/20 06/14/20 21:17 23:50 05:34 WBC RBC Hgb Hct MCHC RDW Lymph % (Auto) [place] % (Auto) Eos % (Auto) Lymph # [place] # Lymph # (Auto) [place] # (Auto) Seg Neutrophils % Seg Neuts % (Manual) Lymphocytes % (Manual) Seg Neutrophils # Seg Neutrophils # Man Lymphocytes # (Manual) Monocytes % (Manual) Eosinophils % (Manual) Monocytes # (Manual) Eosinophils # (Manual) D-Dimer Heparin Anti-Xa Level 0.72 H ABG pH POC ABG pCO2 POC ABG pO2 ABG pO2 ABG HCO3 ABG O2 Saturation ABG Base Excess ABG Hemoglobin ABG Oxyhemoglobin VBG pH Oxyhemoglobin Sodium 146 H Potassium Chloride 107.6 H Carbon Dioxide BUN 61 H Creatinine 1.3 H Glucose 135 H POC Glucose 146 H Lactic Acid Calcium Ferritin AST Alkaline Phosphatase Magnesium Lactate Dehydrogenase Total Creatine Kinase CK-MB (CK-2) C-Reactive Protein Total Protein Albumin Troponin T HDL Cholesterol Urine WBC (Auto) Urine Creatinine Urine Total Protein Coronavirus (PCR) Crossmatch 06/14/20 06/14/20 06/14/20 06:11 09:28 11:30 WBC RBC Hgb Hct MCHC RDW Lymph % (Auto) [place] % (Auto) Eos % (Auto) Lymph # [place] # Lymph # (Auto) [place] # (Auto) Seg Neutrophils % Seg Neuts % (Manual) Lymphocytes % (Manual) Seg Neutrophils # Seg Neutrophils # Man Lymphocytes # (Manual) Monocytes % (Manual) Eosinophils % (Manual) Monocytes # (Manual) Eosinophils # (Manual) D-Dimer Heparin Anti-Xa Level 0.90 H ABG pH POC ABG pCO2 POC ABG pO2 ABG pO2 ABG HCO3 ABG O2 Saturation ABG Base Excess ABG Hemoglobin ABG Oxyhemoglobin VBG pH Oxyhemoglobin Sodium Potassium Chloride Carbon Dioxide BUN Creatinine Glucose POC Glucose 141 H 186 H Lactic Acid Calcium Ferritin AST Alkaline Phosphatase Magnesium Lactate Dehydrogenase Total Creatine Kinase CK-MB (CK-2) C-Reactive Protein Total Protein Albumin Troponin T HDL Cholesterol Urine WBC (Auto) Urine Creatinine Urine Total Protein Coronavirus (PCR) Crossmatch 06/14/20 06/14/20 06/14/20 16:07 18:16 23:51 WBC RBC Hgb Hct MCHC RDW Lymph % (Auto) [place] % (Auto) Eos % (Auto) Lymph # [place] # Lymph # (Auto) [place] # (Auto) Seg Neutrophils % Seg Neuts % (Manual) Lymphocytes % (Manual) Seg Neutrophils # Seg Neutrophils # Man Lymphocytes # (Manual) Monocytes % (Manual) Eosinophils % (Manual) Monocytes # (Manual) Eosinophils # (Manual) D-Dimer Heparin Anti-Xa Level 0.82 H ABG pH POC ABG pCO2 POC ABG pO2 ABG pO2 ABG HCO3 ABG O2 Saturation ABG Base Excess ABG Hemoglobin ABG Oxyhemoglobin VBG pH Oxyhemoglobin Sodium Potassium Chloride Carbon Dioxide BUN Creatinine Glucose POC Glucose 106 H 154 H Lactic Acid Calcium Ferritin AST Alkaline Phosphatase Magnesium Lactate Dehydrogenase Total Creatine Kinase CK-MB (CK-2) C-Reactive Protein Total Protein Albumin Troponin T HDL Cholesterol Urine WBC (Auto) Urine Creatinine Urine Total Protein Coronavirus (PCR) Crossmatch 06/15/20 06/15/20 06/15/20 04:24 04:24 05:59 WBC RBC 2.75 L Hgb 7.9 L Hct 24.0 L MCHC RDW 16.4 H Lymph % (Auto) 12.9 L [place] % (Auto) 8.7 H Eos % (Auto) 4.6 H Lymph # 1.1 L [place] # Lymph # (Auto) [place] # (Auto) Seg Neutrophils % 73.2 H Seg Neuts % (Manual) Lymphocytes % (Manual) Seg Neutrophils # Seg Neutrophils # Man Lymphocytes # (Manual) Monocytes % (Manual) Eosinophils % (Manual) Monocytes # (Manual) Eosinophils # (Manual) D-Dimer Heparin Anti-Xa Level ABG pH POC ABG pCO2 POC ABG pO2 ABG pO2 ABG HCO3 ABG O2 Saturation ABG Base Excess ABG Hemoglobin ABG Oxyhemoglobin VBG pH Oxyhemoglobin Sodium Potassium 3.4 L Chloride Carbon Dioxide BUN 55 H Creatinine 1.3 H Glucose 142 H POC Glucose 131 H Lactic Acid Calcium Ferritin AST Alkaline Phosphatase Magnesium Lactate Dehydrogenase Total Creatine Kinase CK-MB (CK-2) C-Reactive Protein Total Protein Albumin Troponin T HDL Cholesterol Urine WBC (Auto) Urine Creatinine Urine Total Protein Coronavirus (PCR) Crossmatch 06/15/20 06/15/20 06/16/20 12:33 17:07 00:22 WBC RBC Hgb Hct MCHC RDW Lymph % (Auto) [place] % (Auto) Eos % (Auto) Lymph # [place] # Lymph # (Auto) [place] # (Auto) Seg Neutrophils % Seg Neuts % (Manual) Lymphocytes % (Manual) Seg Neutrophils # Seg Neutrophils # Man Lymphocytes # (Manual) Monocytes % (Manual) Eosinophils % (Manual) Monocytes # (Manual) Eosinophils # (Manual) D-Dimer Heparin Anti-Xa Level 0.21 L ABG pH POC ABG pCO2 POC ABG pO2 ABG pO2 ABG HCO3 ABG O2 Saturation ABG Base Excess ABG Hemoglobin ABG Oxyhemoglobin VBG pH Oxyhemoglobin Sodium Potassium Chloride Carbon Dioxide BUN Creatinine Glucose POC Glucose 180 H 185 H Lactic Acid Calcium Ferritin AST Alkaline Phosphatase Magnesium Lactate Dehydrogenase Total Creatine Kinase CK-MB (CK-2) C-Reactive Protein Total Protein Albumin Troponin T HDL Cholesterol Urine WBC (Auto) Urine Creatinine Urine Total Protein Coronavirus (PCR) Crossmatch 06/16/20 06/16/20 06/16/20 01:45 08:06 09:15 WBC RBC Hgb Hct MCHC RDW Lymph % (Auto) [place] % (Auto) Eos % (Auto) Lymph # [place] # Lymph # (Auto) [place] # (Auto) Seg Neutrophils % Seg Neuts % (Manual) Lymphocytes % (Manual) Seg Neutrophils # Seg Neutrophils # Man Lymphocytes # (Manual) Monocytes % (Manual) Eosinophils % (Manual) Monocytes # (Manual) Eosinophils # (Manual) D-Dimer Heparin Anti-Xa Level ABG pH POC ABG pCO2 POC ABG pO2 ABG pO2 ABG HCO3 ABG O2 Saturation ABG Base Excess ABG Hemoglobin ABG Oxyhemoglobin VBG pH Oxyhemoglobin Sodium Potassium Chloride Carbon Dioxide BUN 49 H Creatinine Glucose 154 H POC Glucose 140 H 171 H Lactic Acid Calcium Ferritin AST Alkaline Phosphatase Magnesium Lactate Dehydrogenase Total Creatine Kinase CK-MB (CK-2) C-Reactive Protein Total Protein Albumin Troponin T HDL Cholesterol Urine WBC (Auto) Urine Creatinine Urine Total Protein Coronavirus (PCR) Crossmatch 06/16/20 06/16/20 06/16/20 10:46 12:33 17:54 WBC RBC Hgb Hct MCHC RDW Lymph % (Auto) [place] % (Auto) Eos % (Auto) Lymph # [place] # Lymph # (Auto) [place] # (Auto) Seg Neutrophils % Seg Neuts % (Manual) Lymphocytes % (Manual) Seg Neutrophils # Seg Neutrophils # Man Lymphocytes # (Manual) Monocytes % (Manual) Eosinophils % (Manual) Monocytes # (Manual) Eosinophils # (Manual) D-Dimer Heparin Anti-Xa Level 0.12 L ABG pH POC ABG pCO2 POC ABG pO2 ABG pO2 ABG HCO3 ABG O2 Saturation ABG Base Excess ABG Hemoglobin ABG Oxyhemoglobin VBG pH Oxyhemoglobin Sodium Potassium Chloride Carbon Dioxide BUN Creatinine Glucose POC Glucose 166 H 151 H Lactic Acid Calcium Ferritin AST Alkaline Phosphatase Magnesium Lactate Dehydrogenase Total Creatine Kinase CK-MB (CK-2) C-Reactive Protein Total Protein Albumin Troponin T HDL Cholesterol Urine WBC (Auto) Urine Creatinine Urine Total Protein Coronavirus (PCR) Crossmatch 06/16/20 06/17/20 06/17/20 18:47 00:00 02:19 WBC RBC Hgb Hct MCHC RDW Lymph % (Auto) [place] % (Auto) Eos % (Auto) Lymph # [place] # Lymph # (Auto) [place] # (Auto) Seg Neutrophils % Seg Neuts % (Manual) Lymphocytes % (Manual) Seg Neutrophils # Seg Neutrophils # Man Lymphocytes # (Manual) Monocytes % (Manual) Eosinophils % (Manual) Monocytes # (Manual) Eosinophils # (Manual) D-Dimer Heparin Anti-Xa Level 0.73 H 0.77 H ABG pH POC ABG pCO2 POC ABG pO2 ABG pO2 ABG HCO3 ABG O2 Saturation ABG Base Excess ABG Hemoglobin ABG Oxyhemoglobin VBG pH Oxyhemoglobin Sodium Potassium Chloride Carbon Dioxide BUN Creatinine Glucose POC Glucose 139 H Lactic Acid Calcium Ferritin AST Alkaline Phosphatase Magnesium Lactate Dehydrogenase Total Creatine Kinase CK-MB (CK-2) C-Reactive Protein Total Protein Albumin Troponin T HDL Cholesterol Urine WBC (Auto) Urine Creatinine Urine Total Protein Coronavirus (PCR) Crossmatch 06/17/20 06/17/20 06/17/20 06:07 11:42 16:43 WBC RBC Hgb Hct MCHC RDW Lymph % (Auto) [place] % (Auto) Eos % (Auto) Lymph # [place] # Lymph # (Auto) [place] # (Auto) Seg Neutrophils % Seg Neuts % (Manual) Lymphocytes % (Manual) Seg Neutrophils # Seg Neutrophils # Man Lymphocytes # (Manual) Monocytes % (Manual) Eosinophils % (Manual) Monocytes # (Manual) Eosinophils # (Manual) D-Dimer Heparin Anti-Xa Level 0.73 H ABG pH POC ABG pCO2 POC ABG pO2 ABG pO2 ABG HCO3 ABG O2 Saturation ABG Base Excess ABG Hemoglobin ABG Oxyhemoglobin VBG pH Oxyhemoglobin Sodium Potassium Chloride Carbon Dioxide BUN Creatinine Glucose POC Glucose 169 H 169 H Lactic Acid Calcium Ferritin AST Alkaline Phosphatase Magnesium Lactate Dehydrogenase Total Creatine Kinase CK-MB (CK-2) C-Reactive Protein Total Protein Albumin Troponin T HDL Cholesterol Urine WBC (Auto) Urine Creatinine Urine Total Protein Coronavirus (PCR) Crossmatch 06/17/20 06/17/20 06/17/20 18:18 23:08 23:16 WBC RBC Hgb Hct MCHC RDW Lymph % (Auto) [place] % (Auto) Eos % (Auto) Lymph # [place] # Lymph # (Auto) [place] # (Auto) Seg Neutrophils % Seg Neuts % (Manual) Lymphocytes % (Manual) Seg Neutrophils # Seg Neutrophils # Man Lymphocytes # (Manual) Monocytes % (Manual) Eosinophils % (Manual) Monocytes # (Manual) Eosinophils # (Manual) D-Dimer Heparin Anti-Xa Level 0.71 H ABG pH POC ABG pCO2 POC ABG pO2 ABG pO2 ABG HCO3 ABG O2 Saturation ABG Base Excess ABG Hemoglobin ABG Oxyhemoglobin VBG pH Oxyhemoglobin Sodium Potassium Chloride Carbon Dioxide BUN Creatinine Glucose POC Glucose 159 H 134 H Lactic Acid Calcium Ferritin AST Alkaline Phosphatase Magnesium Lactate Dehydrogenase Total Creatine Kinase CK-MB (CK-2) C-Reactive Protein Total Protein Albumin Troponin T HDL Cholesterol Urine WBC (Auto) Urine Creatinine Urine Total Protein Coronavirus (PCR) Crossmatch 06/18/20 06/18/20 06/18/20 04:42 05:52 11:50 WBC RBC Hgb Hct MCHC RDW Lymph % (Auto) [place] % (Auto) Eos % (Auto) Lymph # [place] # Lymph # (Auto) [place] # (Auto) Seg Neutrophils % Seg Neuts % (Manual) Lymphocytes % (Manual) Seg Neutrophils # Seg Neutrophils # Man Lymphocytes # (Manual) Monocytes % (Manual) Eosinophils % (Manual) Monocytes # (Manual) Eosinophils # (Manual) D-Dimer Heparin Anti-Xa Level ABG pH POC ABG pCO2 POC ABG pO2 ABG pO2 ABG HCO3 ABG O2 Saturation ABG Base Excess ABG Hemoglobin ABG Oxyhemoglobin VBG pH Oxyhemoglobin Sodium Potassium Chloride Carbon Dioxide BUN 44 H Creatinine Glucose 115 H POC Glucose 171 H 167 H Lactic Acid Calcium Ferritin AST Alkaline Phosphatase Magnesium Lactate Dehydrogenase Total Creatine Kinase CK-MB (CK-2) C-Reactive Protein Total Protein Albumin Troponin T HDL Cholesterol Urine WBC (Auto) Urine Creatinine Urine Total Protein Coronavirus (PCR) Crossmatch 06/18/20 06/19/20 06/19/20 23:46 05:48 07:52 WBC RBC Hgb Hct MCHC RDW Lymph % (Auto) [place] % (Auto) Eos % (Auto) Lymph # [place] # Lymph # (Auto) [place] # (Auto) Seg Neutrophils % Seg Neuts % (Manual) Lymphocytes % (Manual) Seg Neutrophils # Seg Neutrophils # Man Lymphocytes # (Manual) Monocytes % (Manual) Eosinophils % (Manual) Monocytes # (Manual) Eosinophils # (Manual) D-Dimer Heparin Anti-Xa Level ABG pH POC ABG pCO2 POC ABG pO2 ABG pO2 ABG HCO3 ABG O2 Saturation ABG Base Excess ABG Hemoglobin ABG Oxyhemoglobin VBG pH Oxyhemoglobin Sodium Potassium Chloride Carbon Dioxide BUN Creatinine Glucose POC Glucose 130 H 207 H 175 H Lactic Acid Calcium Ferritin AST Alkaline Phosphatase Magnesium Lactate Dehydrogenase Total Creatine Kinase CK-MB (CK-2) C-Reactive Protein Total Protein Albumin Troponin T HDL Cholesterol Urine WBC (Auto) Urine Creatinine Urine Total Protein Coronavirus (PCR) Crossmatch 06/19/20 06/19/20 06/20/20 11:42 22:54 05:17 WBC RBC Hgb Hct MCHC RDW Lymph % (Auto) [place] % (Auto) Eos % (Auto) Lymph # [place] # Lymph # (Auto) [place] # (Auto) Seg Neutrophils % Seg Neuts % (Manual) Lymphocytes % (Manual) Seg Neutrophils # Seg Neutrophils # Man Lymphocytes # (Manual) Monocytes % (Manual) Eosinophils % (Manual) Monocytes # (Manual) Eosinophils # (Manual) D-Dimer Heparin Anti-Xa Level ABG pH POC ABG pCO2 POC ABG pO2 ABG pO2 ABG HCO3 ABG O2 Saturation ABG Base Excess ABG Hemoglobin ABG Oxyhemoglobin VBG pH Oxyhemoglobin Sodium Potassium Chloride Carbon Dioxide BUN Creatinine Glucose POC Glucose 166 H 135 H 218 H Lactic Acid Calcium Ferritin AST Alkaline Phosphatase Magnesium Lactate Dehydrogenase Total Creatine Kinase CK-MB (CK-2) C-Reactive Protein Total Protein Albumin Troponin T HDL Cholesterol Urine WBC (Auto) Urine Creatinine Urine Total Protein Coronavirus (PCR) Crossmatch 06/20/20 06/20/20 06/20/20 12:04 16:25 16:35 WBC RBC Hgb Hct MCHC RDW Lymph % (Auto) [place] % (Auto) Eos % (Auto) Lymph # [place] # Lymph # (Auto) [place] # (Auto) Seg Neutrophils % Seg Neuts % (Manual) Lymphocytes % (Manual) Seg Neutrophils # Seg Neutrophils # Man Lymphocytes # (Manual) Monocytes % (Manual) Eosinophils % (Manual) Monocytes # (Manual) Eosinophils # (Manual) D-Dimer Heparin Anti-Xa Level ABG pH POC ABG pCO2 POC ABG pO2 ABG pO2 59.6 L ABG HCO3 28.7 H ABG O2 Saturation 93.5 L ABG Base Excess 3.4 H ABG Hemoglobin 7.2 L ABG Oxyhemoglobin VBG pH Oxyhemoglobin 91.3 L Sodium Potassium Chloride Carbon Dioxide BUN Creatinine Glucose POC Glucose 194 H 137 H Lactic Acid Calcium Ferritin AST Alkaline Phosphatase Magnesium Lactate Dehydrogenase Total Creatine Kinase CK-MB (CK-2) C-Reactive Protein Total Protein Albumin Troponin T HDL Cholesterol Urine WBC (Auto) Urine Creatinine Urine Total Protein Coronavirus (PCR) Crossmatch 06/20/20 06/21/20 06/21/20 23:59 06:25 12:01 WBC RBC Hgb Hct MCHC RDW Lymph % (Auto) [place] % (Auto) Eos % (Auto) Lymph # [place] # Lymph # (Auto) [place] # (Auto) Seg Neutrophils % Seg Neuts % (Manual) Lymphocytes % (Manual) Seg Neutrophils # Seg Neutrophils # Man Lymphocytes # (Manual) Monocytes % (Manual) Eosinophils % (Manual) Monocytes # (Manual) Eosinophils # (Manual) D-Dimer Heparin Anti-Xa Level ABG pH POC ABG pCO2 POC ABG pO2 ABG pO2 ABG HCO3 ABG O2 Saturation ABG Base Excess ABG Hemoglobin ABG Oxyhemoglobin VBG pH Oxyhemoglobin Sodium Potassium Chloride Carbon Dioxide BUN Creatinine Glucose POC Glucose 156 H 177 H 195 H Lactic Acid Calcium Ferritin AST Alkaline Phosphatase Magnesium Lactate Dehydrogenase Total Creatine Kinase CK-MB (CK-2) C-Reactive Protein Total Protein Albumin Troponin T HDL Cholesterol Urine WBC (Auto) Urine Creatinine Urine Total Protein Coronavirus (PCR) Crossmatch 06/21/20 06/21/20 06/22/20 17:04 21:51 05:06 WBC RBC Hgb Hct MCHC RDW Lymph % (Auto) [place] % (Auto) Eos % (Auto) Lymph # [place] # Lymph # (Auto) [place] # (Auto) Seg Neutrophils % Seg Neuts % (Manual) Lymphocytes % (Manual) Seg Neutrophils # Seg Neutrophils # Man Lymphocytes # (Manual) Monocytes % (Manual) Eosinophils % (Manual) Monocytes # (Manual) Eosinophils # (Manual) D-Dimer Heparin Anti-Xa Level ABG pH POC ABG pCO2 POC ABG pO2 ABG pO2 ABG HCO3 ABG O2 Saturation ABG Base Excess ABG Hemoglobin ABG Oxyhemoglobin VBG pH Oxyhemoglobin Sodium Potassium Chloride Carbon Dioxide BUN Creatinine Glucose POC Glucose 156 H 154 H 167 H Lactic Acid Calcium Ferritin AST Alkaline Phosphatase Magnesium Lactate Dehydrogenase Total Creatine Kinase CK-MB (CK-2) C-Reactive Protein Total Protein Albumin Troponin T HDL Cholesterol Urine WBC (Auto) Urine Creatinine Urine Total Protein Coronavirus (PCR) Crossmatch 06/22/20 06/22/20 06/22/20 11:20 15:27 16:58 WBC RBC Hgb Hct MCHC RDW Lymph % (Auto) [place] % (Auto) Eos % (Auto) Lymph # [place] # Lymph # (Auto) [place] # (Auto) Seg Neutrophils % Seg Neuts % (Manual) Lymphocytes % (Manual) Seg Neutrophils # Seg Neutrophils # Man Lymphocytes # (Manual) Monocytes % (Manual) Eosinophils % (Manual) Monocytes # (Manual) Eosinophils # (Manual) D-Dimer Heparin Anti-Xa Level ABG pH 7.206 L POC ABG pCO2 79.9 H POC ABG pO2 ABG pO2 ABG HCO3 ABG O2 Saturation ABG Base Excess ABG Hemoglobin 8.3 L ABG Oxyhemoglobin VBG pH Oxyhemoglobin Sodium Potassium Chloride Carbon Dioxide BUN Creatinine Glucose POC Glucose 181 H 230 H Lactic Acid Calcium Ferritin AST Alkaline Phosphatase Magnesium Lactate Dehydrogenase Total Creatine Kinase CK-MB (CK-2) C-Reactive Protein Total Protein Albumin Troponin T HDL Cholesterol Urine WBC (Auto) Urine Creatinine Urine Total Protein Coronavirus (PCR) Crossmatch 06/22/20 06/23/20 06/23/20 22:26 05:49 05:49 WBC RBC 2.58 L Hgb 7.4 L Hct 23.2 L MCHC RDW 17.0 H Lymph % (Auto) [place] % (Auto) 11.2 H Eos % (Auto) Lymph # 1.0 L [place] # Lymph # (Auto) [place] # (Auto) Seg Neutrophils % Seg Neuts % (Manual) Lymphocytes % (Manual) Seg Neutrophils # Seg Neutrophils # Man Lymphocytes # (Manual) Monocytes % (Manual) Eosinophils % (Manual) Monocytes # (Manual) Eosinophils # (Manual) D-Dimer Heparin Anti-Xa Level ABG pH POC ABG pCO2 POC ABG pO2 ABG pO2 ABG HCO3 ABG O2 Saturation ABG Base Excess ABG Hemoglobin ABG Oxyhemoglobin VBG pH Oxyhemoglobin Sodium Potassium Chloride Carbon Dioxide BUN 68 H Creatinine 2.4 H Glucose 198 H POC Glucose 195 H Lactic Acid Calcium Ferritin AST Alkaline Phosphatase Magnesium Lactate Dehydrogenase Total Creatine Kinase CK-MB (CK-2) C-Reactive Protein Total Protein Albumin Troponin T HDL Cholesterol Urine WBC (Auto) Urine Creatinine Urine Total Protein Coronavirus (PCR) Crossmatch 06/23/20 06/23/20 06/23/20 05:50 12:29 12:34 WBC RBC Hgb Hct MCHC RDW Lymph % (Auto) [place] % (Auto) Eos % (Auto) Lymph # [place] # Lymph # (Auto) [place] # (Auto) Seg Neutrophils % Seg Neuts % (Manual) Lymphocytes % (Manual) Seg Neutrophils # Seg Neutrophils # Man Lymphocytes # (Manual) Monocytes % (Manual) Eosinophils % (Manual) Monocytes # (Manual) Eosinophils # (Manual) D-Dimer Heparin Anti-Xa Level ABG pH POC ABG pCO2 54.7 H POC ABG pO2 68.8 L ABG pO2 ABG HCO3 ABG O2 Saturation ABG Base Excess ABG Hemoglobin 9.8 L ABG Oxyhemoglobin 92.6 L VBG pH Oxyhemoglobin Sodium Potassium Chloride Carbon Dioxide BUN Creatinine Glucose POC Glucose 202 H 218 H Lactic Acid Calcium Ferritin AST Alkaline Phosphatase Magnesium Lactate Dehydrogenase Total Creatine Kinase CK-MB (CK-2) C-Reactive Protein Total Protein Albumin Troponin T HDL Cholesterol Urine WBC (Auto) Urine Creatinine Urine Total Protein Coronavirus (PCR) Crossmatch 06/23/20 06/23/20 06/24/20 16:02 22:22 01:06 WBC RBC Hgb Hct MCHC RDW Lymph % (Auto) [place] % (Auto) Eos % (Auto) Lymph # [place] # Lymph # (Auto) [place] # (Auto) Seg Neutrophils % Seg Neuts % (Manual) Lymphocytes % (Manual) Seg Neutrophils # Seg Neutrophils # Man Lymphocytes # (Manual) Monocytes % (Manual) Eosinophils % (Manual) Monocytes # (Manual) Eosinophils # (Manual) D-Dimer Heparin Anti-Xa Level ABG pH POC ABG pCO2 POC ABG pO2 ABG pO2 ABG HCO3 ABG O2 Saturation ABG Base Excess ABG Hemoglobin ABG Oxyhemoglobin VBG pH Oxyhemoglobin Sodium Potassium Chloride Carbon Dioxide BUN Creatinine Glucose POC Glucose 190 H 166 H 171 H Lactic Acid Calcium Ferritin AST Alkaline Phosphatase Magnesium Lactate Dehydrogenase Total Creatine Kinase CK-MB (CK-2) C-Reactive Protein Total Protein Albumin Troponin T HDL Cholesterol Urine WBC (Auto) Urine Creatinine Urine Total Protein Coronavirus (PCR) Crossmatch 06/24/20 06/24/20 06/24/20 04:48 05:35 11:48 WBC RBC Hgb Hct MCHC RDW Lymph % (Auto) [place] % (Auto) Eos % (Auto) Lymph # [place] # Lymph # (Auto) [place] # (Auto) Seg Neutrophils % Seg Neuts % (Manual) Lymphocytes % (Manual) Seg Neutrophils # Seg Neutrophils # Man Lymphocytes # (Manual) Monocytes % (Manual) Eosinophils % (Manual) Monocytes # (Manual) Eosinophils # (Manual) D-Dimer Heparin Anti-Xa Level ABG pH POC ABG pCO2 POC ABG pO2 ABG pO2 ABG HCO3 ABG O2 Saturation ABG Base Excess ABG Hemoglobin ABG Oxyhemoglobin VBG pH Oxyhemoglobin Sodium Potassium Chloride Carbon Dioxide BUN 75 H Creatinine 2.6 H Glucose 179 H POC Glucose 172 H 153 H Lactic Acid Calcium Ferritin AST Alkaline Phosphatase Magnesium Lactate Dehydrogenase Total Creatine Kinase CK-MB (CK-2) C-Reactive Protein Total Protein Albumin Troponin T HDL Cholesterol Urine WBC (Auto) Urine Creatinine Urine Total Protein Coronavirus (PCR) Crossmatch 06/24/20 06/24/20 06/25/20 16:38 21:52 12:00 WBC RBC Hgb Hct MCHC RDW Lymph % (Auto) [place] % (Auto) Eos % (Auto) Lymph # [place] # Lymph # (Auto) [place] # (Auto) Seg Neutrophils % Seg Neuts % (Manual) Lymphocytes % (Manual) Seg Neutrophils # Seg Neutrophils # Man Lymphocytes # (Manual) Monocytes % (Manual) Eosinophils % (Manual) Monocytes # (Manual) Eosinophils # (Manual) D-Dimer Heparin Anti-Xa Level ABG pH POC ABG pCO2 POC ABG pO2 ABG pO2 ABG HCO3 ABG O2 Saturation ABG Base Excess ABG Hemoglobin ABG Oxyhemoglobin VBG pH Oxyhemoglobin Sodium Potassium Chloride Carbon Dioxide BUN Creatinine Glucose POC Glucose 123 H 115 H 203 H Lactic Acid Calcium Ferritin AST Alkaline Phosphatase Magnesium Lactate Dehydrogenase Total Creatine Kinase CK-MB (CK-2) C-Reactive Protein Total Protein Albumin Troponin T HDL Cholesterol Urine WBC (Auto) Urine Creatinine Urine Total Protein Coronavirus (PCR) Crossmatch 06/25/20 06/25/20 06/25/20 15:43 16:37 23:02 WBC RBC Hgb Hct MCHC RDW Lymph % (Auto) [place] % (Auto) Eos % (Auto) Lymph # [place] # Lymph # (Auto) [place] # (Auto) Seg Neutrophils % Seg Neuts % (Manual) Lymphocytes % (Manual) Seg Neutrophils # Seg Neutrophils # Man Lymphocytes # (Manual) Monocytes % (Manual) Eosinophils % (Manual) Monocytes # (Manual) Eosinophils # (Manual) D-Dimer Heparin Anti-Xa Level ABG pH POC ABG pCO2 POC ABG pO2 ABG pO2 ABG HCO3 ABG O2 Saturation ABG Base Excess ABG Hemoglobin ABG Oxyhemoglobin VBG pH Oxyhemoglobin Sodium Potassium Chloride Carbon Dioxide BUN 71 H Creatinine 1.8 H Glucose 170 H POC Glucose 191 H 126 H Lactic Acid Calcium 8.2 L Ferritin AST Alkaline Phosphatase Magnesium Lactate Dehydrogenase Total Creatine Kinase CK-MB (CK-2) C-Reactive Protein Total Protein Albumin Troponin T HDL Cholesterol Urine WBC (Auto) Urine Creatinine Urine Total Protein Coronavirus (PCR) Crossmatch 06/26/20 06/26/20 06/26/20 06:34 06:34 09:27 WBC RBC 2.41 L Hgb 6.9 L Hct 21.5 L MCHC RDW 16.7 H Lymph % (Auto) 10.9 L [place] % (Auto) 9.6 H Eos % (Auto) Lymph # 0.7 L [place] # Lymph # (Auto) [place] # (Auto) Seg Neutrophils % 75.4 H Seg Neuts % (Manual) Lymphocytes % (Manual) Seg Neutrophils # Seg Neutrophils # Man Lymphocytes # (Manual) Monocytes % (Manual) Eosinophils % (Manual) Monocytes # (Manual) Eosinophils # (Manual) D-Dimer Heparin Anti-Xa Level ABG pH POC ABG pCO2 POC ABG pO2 ABG pO2 ABG HCO3 ABG O2 Saturation ABG Base Excess ABG Hemoglobin ABG Oxyhemoglobin VBG pH Oxyhemoglobin Sodium Potassium Chloride Carbon Dioxide BUN 77 H Creatinine 1.9 H Glucose 190 H POC Glucose Lactic Acid Calcium Ferritin AST Alkaline Phosphatase Magnesium Lactate Dehydrogenase Total Creatine Kinase CK-MB (CK-2) C-Reactive Protein Total Protein Albumin Troponin T HDL Cholesterol Urine WBC (Auto) Urine Creatinine Urine Total Protein Coronavirus (PCR) Crossmatch See Detail 06/26/20 06/26/20 06/26/20 12:15 16:28 17:28 WBC RBC Hgb Hct MCHC RDW Lymph % (Auto) [place] % (Auto) Eos % (Auto) Lymph # [place] # Lymph # (Auto) [place] # (Auto) Seg Neutrophils % Seg Neuts % (Manual) Lymphocytes % (Manual) Seg Neutrophils # Seg Neutrophils # Man Lymphocytes # (Manual) Monocytes % (Manual) Eosinophils % (Manual) Monocytes # (Manual) Eosinophils # (Manual) D-Dimer Heparin Anti-Xa Level ABG pH POC ABG pCO2 POC ABG pO2 ABG pO2 ABG HCO3 ABG O2 Saturation ABG Base Excess ABG Hemoglobin ABG Oxyhemoglobin VBG pH Oxyhemoglobin Sodium Potassium Chloride Carbon Dioxide BUN Creatinine Glucose POC Glucose 187 H 149 H 189 H Lactic Acid Calcium Ferritin AST Alkaline Phosphatase Magnesium Lactate Dehydrogenase Total Creatine Kinase CK-MB (CK-2) C-Reactive Protein Total Protein Albumin Troponin T HDL Cholesterol Urine WBC (Auto) Urine Creatinine Urine Total Protein Coronavirus (PCR) Crossmatch 06/26/20 06/26/20 06/26/20 18:30 18:30 18:30 WBC RBC 2.87 L Hgb 8.2 L Hct 25.9 L MCHC RDW 17.8 H Lymph % (Auto) [place] % (Auto) Eos % (Auto) Lymph # [place] # Lymph # (Auto) [place] # (Auto) Seg Neutrophils % Seg Neuts % (Manual) 83.0 H Lymphocytes % (Manual) 8.0 L Seg Neutrophils # Seg Neutrophils # Man Lymphocytes # (Manual) 0.6 L Monocytes % (Manual) Eosinophils % (Manual) Monocytes # (Manual) Eosinophils # (Manual) D-Dimer Heparin Anti-Xa Level ABG pH POC ABG pCO2 POC ABG pO2 ABG pO2 ABG HCO3 ABG O2 Saturation ABG Base Excess ABG Hemoglobin ABG Oxyhemoglobin VBG pH Oxyhemoglobin Sodium Potassium Chloride Carbon Dioxide BUN 80 H Creatinine 2.1 H Glucose 260 H POC Glucose Lactic Acid 4.30 H* Calcium 8.3 L Ferritin AST Alkaline Phosphatase Magnesium Lactate Dehydrogenase Total Creatine Kinase CK-MB (CK-2) C-Reactive Protein Total Protein Albumin Troponin T HDL Cholesterol Urine WBC (Auto) Urine Creatinine Urine Total Protein Coronavirus (PCR) Crossmatch 06/26/20 06/27/20 06/27/20 18:50 01:00 04:29 WBC RBC Hgb Hct MCHC RDW Lymph % (Auto) [place] % (Auto) Eos % (Auto) Lymph # [place] # Lymph # (Auto) [place] # (Auto) Seg Neutrophils % Seg Neuts % (Manual) Lymphocytes % (Manual) Seg Neutrophils # Seg Neutrophils # Man Lymphocytes # (Manual) Monocytes % (Manual) Eosinophils % (Manual) Monocytes # (Manual) Eosinophils # (Manual) D-Dimer Heparin Anti-Xa Level ABG pH 7.296 L POC ABG pCO2 POC ABG pO2 ABG pO2 116.5 H 200.5 H ABG HCO3 28.4 H ABG O2 Saturation 99.3 H ABG Base Excess 3.7 H ABG Hemoglobin 5.6 L ABG Oxyhemoglobin VBG pH Oxyhemoglobin Sodium Potassium Chloride Carbon Dioxide BUN Creatinine Glucose POC Glucose 123 H Lactic Acid Calcium Ferritin AST Alkaline Phosphatase Magnesium Lactate Dehydrogenase Total Creatine Kinase CK-MB (CK-2) C-Reactive Protein Total Protein Albumin Troponin T HDL Cholesterol Urine WBC (Auto) Urine Creatinine Urine Total Protein Coronavirus (PCR) Crossmatch 06/27/20 06/27/20 06/27/20 05:00 05:00 05:00 WBC RBC 2.75 L Hgb 7.9 L Hct 24.3 L MCHC RDW 17.1 H Lymph % (Auto) 8.5 L [place] % (Auto) 12.6 H Eos % (Auto) Lymph # 0.7 L [place] # 1.0 H Lymph # (Auto) [place] # (Auto) Seg Neutrophils % 77.5 H Seg Neuts % (Manual) Lymphocytes % (Manual) Seg Neutrophils # Seg Neutrophils # Man Lymphocytes # (Manual) Monocytes % (Manual) Eosinophils % (Manual) Monocytes # (Manual) Eosinophils # (Manual) D-Dimer Heparin Anti-Xa Level ABG pH POC ABG pCO2 POC ABG pO2 ABG pO2 ABG HCO3 ABG O2 Saturation ABG Base Excess ABG Hemoglobin ABG Oxyhemoglobin VBG pH Oxyhemoglobin Sodium Potassium Chloride Carbon Dioxide BUN 80 H Creatinine 2.0 H Glucose 129 H POC Glucose Lactic Acid 0.60 L Calcium 7.9 L Ferritin AST Alkaline Phosphatase Magnesium Lactate Dehydrogenase Total Creatine Kinase CK-MB (CK-2) C-Reactive Protein Total Protein Albumin Troponin T HDL Cholesterol Urine WBC (Auto) Urine Creatinine Urine Total Protein Coronavirus (PCR) Crossmatch 06/27/20 06/27/20 06/27/20 05:23 13:46 17:25 WBC RBC Hgb Hct MCHC RDW Lymph % (Auto) [place] % (Auto) Eos % (Auto) Lymph # [place] # Lymph # (Auto) [place] # (Auto) Seg Neutrophils % Seg Neuts % (Manual) Lymphocytes % (Manual) Seg Neutrophils # Seg Neutrophils # Man Lymphocytes # (Manual) Monocytes % (Manual) Eosinophils % (Manual) Monocytes # (Manual) Eosinophils # (Manual) D-Dimer Heparin Anti-Xa Level ABG pH POC ABG pCO2 POC ABG pO2 ABG pO2 ABG HCO3 ABG O2 Saturation ABG Base Excess ABG Hemoglobin ABG Oxyhemoglobin VBG pH Oxyhemoglobin Sodium Potassium Chloride Carbon Dioxide BUN Creatinine Glucose POC Glucose 109 H 158 H 162 H Lactic Acid Calcium Ferritin AST Alkaline Phosphatase Magnesium Lactate Dehydrogenase Total Creatine Kinase CK-MB (CK-2) C-Reactive Protein Total Protein Albumin Troponin T HDL Cholesterol Urine WBC (Auto) Urine Creatinine Urine Total Protein Coronavirus (PCR) Crossmatch 06/27/20 06/27/20 06/28/20 18:43 23:46 04:05 WBC RBC Hgb 7.7 L Hct 22.1 L MCHC RDW Lymph % (Auto) [place] % (Auto) Eos % (Auto) Lymph # [place] # Lymph # (Auto) [place] # (Auto) Seg Neutrophils % Seg Neuts % (Manual) Lymphocytes % (Manual) Seg Neutrophils # Seg Neutrophils # Man Lymphocytes # (Manual) Monocytes % (Manual) Eosinophils % (Manual) Monocytes # (Manual) Eosinophils # (Manual) D-Dimer Heparin Anti-Xa Level ABG pH POC ABG pCO2 POC ABG pO2 ABG pO2 102.7 H ABG HCO3 28.7 H ABG O2 Saturation ABG Base Excess 3.7 H ABG Hemoglobin ABG Oxyhemoglobin VBG pH Oxyhemoglobin Sodium Potassium Chloride Carbon Dioxide BUN Creatinine Glucose POC Glucose 142 H Lactic Acid Calcium Ferritin AST Alkaline Phosphatase Magnesium Lactate Dehydrogenase Total Creatine Kinase CK-MB (CK-2) C-Reactive Protein Total Protein Albumin Troponin T HDL Cholesterol Urine WBC (Auto) Urine Creatinine Urine Total Protein Coronavirus (PCR) Crossmatch 06/28/20 06/28/20 06/28/20 09:47 09:47 12:02 WBC RBC 2.53 L Hgb 7.4 L Hct 22.2 L MCHC RDW 16.8 H Lymph % (Auto) [place] % (Auto) 13.5 H Eos % (Auto) Lymph # 1.1 L [place] # 1.0 H Lymph # (Auto) [place] # (Auto) Seg Neutrophils % Seg Neuts % (Manual) Lymphocytes % (Manual) Seg Neutrophils # Seg Neutrophils # Man Lymphocytes # (Manual) Monocytes % (Manual) Eosinophils % (Manual) Monocytes # (Manual) Eosinophils # (Manual) D-Dimer Heparin Anti-Xa Level ABG pH POC ABG pCO2 POC ABG pO2 ABG pO2 ABG HCO3 ABG O2 Saturation ABG Base Excess ABG Hemoglobin ABG Oxyhemoglobin VBG pH Oxyhemoglobin Sodium Potassium Chloride Carbon Dioxide BUN 80 H Creatinine 1.5 H Glucose 139 H POC Glucose 169 H Lactic Acid Calcium 7.9 L Ferritin AST Alkaline Phosphatase Magnesium Lactate Dehydrogenase Total Creatine Kinase CK-MB (CK-2) C-Reactive Protein Total Protein 5.0 L Albumin 2.1 L Troponin T HDL Cholesterol Urine WBC (Auto) Urine Creatinine Urine Total Protein Coronavirus (PCR) Crossmatch 06/28/20 06/28/20 06/28/20 12:30 12:30 17:24 WBC RBC 2.38 L Hgb 7.3 L Hct 20.9 L MCHC 35 H RDW 16.7 H Lymph % (Auto) [place] % (Auto) Eos % (Auto) Lymph # [place] # Lymph # (Auto) [place] # (Auto) Seg Neutrophils % Seg Neuts % (Manual) Lymphocytes % (Manual) Seg Neutrophils # Seg Neutrophils # Man Lymphocytes # (Manual) Monocytes % (Manual) Eosinophils % (Manual) Monocytes # (Manual) Eosinophils # (Manual) D-Dimer Heparin Anti-Xa Level ABG pH POC ABG pCO2 POC ABG pO2 ABG pO2 ABG HCO3 ABG O2 Saturation ABG Base Excess ABG Hemoglobin ABG Oxyhemoglobin VBG pH Oxyhemoglobin Sodium Potassium Chloride Carbon Dioxide BUN 74 H Creatinine 1.5 H Glucose 143 H POC Glucose 173 H Lactic Acid Calcium 7.5 L Ferritin AST Alkaline Phosphatase Magnesium Lactate Dehydrogenase Total Creatine Kinase CK-MB (CK-2) C-Reactive Protein Total Protein Albumin Troponin T HDL Cholesterol Urine WBC (Auto) Urine Creatinine Urine Total Protein Coronavirus (PCR) Crossmatch 06/29/20 06/29/20 06/29/20 00:02 03:54 04:38 WBC RBC 2.55 L Hgb 7.3 L Hct 22.4 L MCHC RDW 16.4 H Lymph % (Auto) 13.3 L [place] % (Auto) 12.5 H Eos % (Auto) Lymph # 1.1 L [place] # 1.0 H Lymph # (Auto) [place] # (Auto) Seg Neutrophils % Seg Neuts % (Manual) Lymphocytes % (Manual) Seg Neutrophils # Seg Neutrophils # Man Lymphocytes # (Manual) Monocytes % (Manual) Eosinophils % (Manual) Monocytes # (Manual) Eosinophils # (Manual) D-Dimer Heparin Anti-Xa Level ABG pH POC ABG pCO2 POC ABG pO2 ABG pO2 ABG HCO3 26.9 H ABG O2 Saturation ABG Base Excess ABG Hemoglobin 6.9 L ABG Oxyhemoglobin VBG pH Oxyhemoglobin Sodium Potassium Chloride Carbon Dioxide BUN Creatinine Glucose POC Glucose 142 H Lactic Acid Calcium Ferritin AST Alkaline Phosphatase Magnesium Lactate Dehydrogenase Total Creatine Kinase CK-MB (CK-2) C-Reactive Protein Total Protein Albumin Troponin T HDL Cholesterol Urine WBC (Auto) Urine Creatinine Urine Total Protein Coronavirus (PCR) Crossmatch 06/29/20 06/29/20 06/29/20 04:38 05:38 12:25 WBC RBC Hgb Hct MCHC RDW Lymph % (Auto) [place] % (Auto) Eos % (Auto) Lymph # [place] # Lymph # (Auto) [place] # (Auto) Seg Neutrophils % Seg Neuts % (Manual) Lymphocytes % (Manual) Seg Neutrophils # Seg Neutrophils # Man Lymphocytes # (Manual) Monocytes % (Manual) Eosinophils % (Manual) Monocytes # (Manual) Eosinophils # (Manual) D-Dimer Heparin Anti-Xa Level ABG pH POC ABG pCO2 POC ABG pO2 ABG pO2 ABG HCO3 ABG O2 Saturation ABG Base Excess ABG Hemoglobin ABG Oxyhemoglobin VBG pH Oxyhemoglobin Sodium Potassium Chloride 107.8 H Carbon Dioxide BUN 72 H Creatinine 1.4 H Glucose 127 H POC Glucose 122 H 138 H Lactic Acid Calcium 7.4 L Ferritin AST Alkaline Phosphatase Magnesium Lactate Dehydrogenase Total Creatine Kinase CK-MB (CK-2) C-Reactive Protein Total Protein Albumin Troponin T HDL Cholesterol Urine WBC (Auto) Urine Creatinine Urine Total Protein Coronavirus (PCR) Crossmatch 06/29/20 06/29/20 06/29/20 14:45 14:45 14:45 WBC RBC Hgb Hct MCHC RDW Lymph % (Auto) [place] % (Auto) Eos % (Auto) Lymph # [place] # Lymph # (Auto) [place] # (Auto) Seg Neutrophils % Seg Neuts % (Manual) Lymphocytes % (Manual) Seg Neutrophils # Seg Neutrophils # Man Lymphocytes # (Manual) Monocytes % (Manual) Eosinophils % (Manual) Monocytes # (Manual) Eosinophils # (Manual) D-Dimer 2310.15 H Heparin Anti-Xa Level ABG pH POC ABG pCO2 POC ABG pO2 ABG pO2 ABG HCO3 ABG O2 Saturation ABG Base Excess ABG Hemoglobin ABG Oxyhemoglobin VBG pH Oxyhemoglobin Sodium Potassium Chloride Carbon Dioxide BUN Creatinine Glucose POC Glucose Lactic Acid Calcium Ferritin 223.6 H AST Alkaline Phosphatase Magnesium Lactate Dehydrogenase 367 H Total Creatine Kinase CK-MB (CK-2) C-Reactive Protein 3.60 H Total Protein Albumin Troponin T HDL Cholesterol Urine WBC (Auto) Urine Creatinine Urine Total Protein Coronavirus (PCR) Crossmatch 06/29/20 06/29/20 06/29/20 18:27 23:35 Unknown WBC RBC Hgb Hct MCHC RDW Lymph % (Auto) [place] % (Auto) Eos % (Auto) Lymph # [place] # Lymph # (Auto) [place] # (Auto) Seg Neutrophils % Seg Neuts % (Manual) Lymphocytes % (Manual) Seg Neutrophils # Seg Neutrophils # Man Lymphocytes # (Manual) Monocytes % (Manual) Eosinophils % (Manual) Monocytes # (Manual) Eosinophils # (Manual) D-Dimer Heparin Anti-Xa Level ABG pH POC ABG pCO2 POC ABG pO2 ABG pO2 ABG HCO3 ABG O2 Saturation ABG Base Excess ABG Hemoglobin ABG Oxyhemoglobin VBG pH Oxyhemoglobin Sodium Potassium Chloride Carbon Dioxide BUN Creatinine Glucose POC Glucose 112 H 140 H Lactic Acid Calcium Ferritin AST Alkaline Phosphatase Magnesium Lactate Dehydrogenase Total Creatine Kinase CK-MB (CK-2) C-Reactive Protein Total Protein Albumin Troponin T HDL Cholesterol Urine WBC (Auto) Urine Creatinine Urine Total Protein Coronavirus (PCR) Positive A Crossmatch 06/30/20 06/30/20 06/30/20 04:10 04:10 06:09 WBC RBC 2.44 L Hgb 7.1 L Hct 21.5 L MCHC RDW 16.6 H Lymph % (Auto) 11.0 L [place] % (Auto) 10.8 H Eos % (Auto) Lymph # 0.9 L [place] # 0.9 H Lymph # (Auto) [place] # (Auto) Seg Neutrophils % 73.7 H Seg Neuts % (Manual) Lymphocytes % (Manual) Seg Neutrophils # Seg Neutrophils # Man Lymphocytes # (Manual) Monocytes % (Manual) Eosinophils % (Manual) Monocytes # (Manual) Eosinophils # (Manual) D-Dimer Heparin Anti-Xa Level ABG pH POC ABG pCO2 POC ABG pO2 ABG pO2 ABG HCO3 ABG O2 Saturation ABG Base Excess ABG Hemoglobin ABG Oxyhemoglobin VBG pH Oxyhemoglobin Sodium Potassium Chloride 109.1 H Carbon Dioxide BUN 74 H Creatinine 1.3 H Glucose 191 H POC Glucose 187 H Lactic Acid Calcium 7.8 L Ferritin AST Alkaline Phosphatase Magnesium Lactate Dehydrogenase Total Creatine Kinase CK-MB (CK-2) C-Reactive Protein Total Protein Albumin Troponin T HDL Cholesterol Urine WBC (Auto) Urine Creatinine Urine Total Protein Coronavirus (PCR) Crossmatch 06/30/20 06/30/20 06/30/20 12:04 17:43 23:41 WBC RBC Hgb Hct MCHC RDW Lymph % (Auto) [place] % (Auto) Eos % (Auto) Lymph # [place] # Lymph # (Auto) [place] # (Auto) Seg Neutrophils % Seg Neuts % (Manual) Lymphocytes % (Manual) Seg Neutrophils # Seg Neutrophils # Man Lymphocytes # (Manual) Monocytes % (Manual) Eosinophils % (Manual) Monocytes # (Manual) Eosinophils # (Manual) D-Dimer Heparin Anti-Xa Level ABG pH POC ABG pCO2 POC ABG pO2 ABG pO2 ABG HCO3 ABG O2 Saturation ABG Base Excess ABG Hemoglobin ABG Oxyhemoglobin VBG pH Oxyhemoglobin Sodium Potassium Chloride Carbon Dioxide BUN Creatinine Glucose POC Glucose 112 H 177 H 143 H Lactic Acid Calcium Ferritin AST Alkaline Phosphatase Magnesium Lactate Dehydrogenase Total Creatine Kinase CK-MB (CK-2) C-Reactive Protein Total Protein Albumin Troponin T HDL Cholesterol Urine WBC (Auto) Urine Creatinine Urine Total Protein Coronavirus (PCR) Crossmatch 07/01/20 07/01/20 07/01/20 05:02 05:52 06:01 WBC 12.6 H RBC 2.95 L Hgb 8.2 L Hct 26.0 L MCHC RDW 16.9 H Lymph % (Auto) [place] % (Auto) Eos % (Auto) Lymph # [place] # Lymph # (Auto) [place] # (Auto) Seg Neutrophils % Seg Neuts % (Manual) Lymphocytes % (Manual) Seg Neutrophils # Seg Neutrophils # Man 8.6 H Lymphocytes # (Manual) Monocytes % (Manual) Eosinophils % (Manual) 5.0 H Monocytes # (Manual) Eosinophils # (Manual) 0.6 H D-Dimer Heparin Anti-Xa Level ABG pH POC ABG pCO2 POC ABG pO2 ABG pO2 ABG HCO3 ABG O2 Saturation ABG Base Excess ABG Hemoglobin 8.2 L ABG Oxyhemoglobin VBG pH Oxyhemoglobin Sodium Potassium Chloride Carbon Dioxide BUN Creatinine Glucose POC Glucose 129 H Lactic Acid Calcium Ferritin AST Alkaline Phosphatase Magnesium Lactate Dehydrogenase Total Creatine Kinase CK-MB (CK-2) C-Reactive Protein Total Protein Albumin Troponin T HDL Cholesterol Urine WBC (Auto) Urine Creatinine Urine Total Protein Coronavirus (PCR) Crossmatch 07/01/20 07/01/20 07/01/20 06:01 06:01 06:08 WBC RBC Hgb Hct MCHC RDW Lymph % (Auto) [place] % (Auto) Eos % (Auto) Lymph # [place] # Lymph # (Auto) [place] # (Auto) Seg Neutrophils % Seg Neuts % (Manual) Lymphocytes % (Manual) Seg Neutrophils # Seg Neutrophils # Man Lymphocytes # (Manual) Monocytes % (Manual) Eosinophils % (Manual) Monocytes # (Manual) Eosinophils # (Manual) D-Dimer Heparin Anti-Xa Level ABG pH POC ABG pCO2 POC ABG pO2 ABG pO2 ABG HCO3 ABG O2 Saturation ABG Base Excess ABG Hemoglobin ABG Oxyhemoglobin VBG pH Oxyhemoglobin Sodium 147 H Potassium Chloride 108.0 H Carbon Dioxide BUN 71 H Creatinine 1.3 H Glucose 193 H POC Glucose 192 H Lactic Acid Calcium 8.1 L Ferritin AST Alkaline Phosphatase Magnesium Lactate Dehydrogenase Total Creatine Kinase 300 H CK-MB (CK-2) C-Reactive Protein Total Protein Albumin Troponin T 0.067 H HDL Cholesterol 61 H Urine WBC (Auto) Urine Creatinine Urine Total Protein Coronavirus (PCR) Crossmatch 07/01/20 07/01/20 07/02/20 12:23 17:40 00:18 WBC RBC Hgb Hct MCHC RDW Lymph % (Auto) [place] % (Auto) Eos % (Auto) Lymph # [place] # Lymph # (Auto) [place] # (Auto) Seg Neutrophils % Seg Neuts % (Manual) Lymphocytes % (Manual) Seg Neutrophils # Seg Neutrophils # Man Lymphocytes # (Manual) Monocytes % (Manual) Eosinophils % (Manual) Monocytes # (Manual) Eosinophils # (Manual) D-Dimer Heparin Anti-Xa Level ABG pH POC ABG pCO2 POC ABG pO2 ABG pO2 ABG HCO3 ABG O2 Saturation ABG Base Excess ABG Hemoglobin ABG Oxyhemoglobin VBG pH Oxyhemoglobin Sodium Potassium Chloride Carbon Dioxide BUN Creatinine Glucose POC Glucose 111 H 135 H 145 H Lactic Acid Calcium Ferritin AST Alkaline Phosphatase Magnesium Lactate Dehydrogenase Total Creatine Kinase CK-MB (CK-2) C-Reactive Protein Total Protein Albumin Troponin T HDL Cholesterol Urine WBC (Auto) Urine Creatinine Urine Total Protein Coronavirus (PCR) Crossmatch 07/02/20 07/02/20 07/02/20 04:11 04:23 05:54 WBC RBC Hgb Hct MCHC RDW Lymph % (Auto) [place] % (Auto) Eos % (Auto) Lymph # [place] # Lymph # (Auto) [place] # (Auto) Seg Neutrophils % Seg Neuts % (Manual) Lymphocytes % (Manual) Seg Neutrophils # Seg Neutrophils # Man Lymphocytes # (Manual) Monocytes % (Manual) Eosinophils % (Manual) Monocytes # (Manual) Eosinophils # (Manual) D-Dimer Heparin Anti-Xa Level ABG pH POC ABG pCO2 POC ABG pO2 ABG pO2 ABG HCO3 ABG O2 Saturation ABG Base Excess ABG Hemoglobin 5.4 L ABG Oxyhemoglobin VBG pH Oxyhemoglobin Sodium Potassium Chloride 108.6 H Carbon Dioxide BUN 72 H Creatinine Glucose 112 H POC Glucose 137 H Lactic Acid Calcium 7.8 L Ferritin AST Alkaline Phosphatase Magnesium Lactate Dehydrogenase Total Creatine Kinase CK-MB (CK-2) C-Reactive Protein Total Protein Albumin Troponin T HDL Cholesterol Urine WBC (Auto) Urine Creatinine Urine Total Protein Coronavirus (PCR) Crossmatch 07/02/20 07/02/20 07/02/20 11:38 18:04 23:59 WBC RBC Hgb Hct MCHC RDW Lymph % (Auto) [place] % (Auto) Eos % (Auto) Lymph # [place] # Lymph # (Auto) [place] # (Auto) Seg Neutrophils % Seg Neuts % (Manual) Lymphocytes % (Manual) Seg Neutrophils # Seg Neutrophils # Man Lymphocytes # (Manual) Monocytes % (Manual) Eosinophils % (Manual) Monocytes # (Manual) Eosinophils # (Manual) D-Dimer Heparin Anti-Xa Level ABG pH POC ABG pCO2 POC ABG pO2 ABG pO2 ABG HCO3 ABG O2 Saturation ABG Base Excess ABG Hemoglobin ABG Oxyhemoglobin VBG pH Oxyhemoglobin Sodium Potassium Chloride Carbon Dioxide BUN Creatinine Glucose POC Glucose 128 H 135 H 156 H Lactic Acid Calcium Ferritin AST Alkaline Phosphatase Magnesium Lactate Dehydrogenase Total Creatine Kinase CK-MB (CK-2) C-Reactive Protein Total Protein Albumin Troponin T HDL Cholesterol Urine WBC (Auto) Urine Creatinine Urine Total Protein Coronavirus (PCR) Crossmatch 07/03/20 07/03/20 07/03/20 03:49 06:00 11:31 WBC RBC Hgb Hct MCHC RDW Lymph % (Auto) [place] % (Auto) Eos % (Auto) Lymph # [place] # Lymph # (Auto) [place] # (Auto) Seg Neutrophils % Seg Neuts % (Manual) Lymphocytes % (Manual) Seg Neutrophils # Seg Neutrophils # Man Lymphocytes # (Manual) Monocytes % (Manual) Eosinophils % (Manual) Monocytes # (Manual) Eosinophils # (Manual) D-Dimer Heparin Anti-Xa Level ABG pH POC ABG pCO2 POC ABG pO2 ABG pO2 121.0 H ABG HCO3 ABG O2 Saturation ABG Base Excess ABG Hemoglobin 8.5 L ABG Oxyhemoglobin VBG pH Oxyhemoglobin Sodium Potassium Chloride Carbon Dioxide BUN Creatinine Glucose POC Glucose 135 H 141 H Lactic Acid Calcium Ferritin AST Alkaline Phosphatase Magnesium Lactate Dehydrogenase Total Creatine Kinase CK-MB (CK-2) C-Reactive Protein Total Protein Albumin Troponin T HDL Cholesterol Urine WBC (Auto) Urine Creatinine Urine Total Protein Coronavirus (PCR) Crossmatch 07/03/20 07/03/20 07/04/20 16:07 17:40 05:49 WBC RBC Hgb Hct MCHC RDW Lymph % (Auto) [place] % (Auto) Eos % (Auto) Lymph # [place] # Lymph # (Auto) [place] # (Auto) Seg Neutrophils % Seg Neuts % (Manual) Lymphocytes % (Manual) Seg Neutrophils # Seg Neutrophils # Man Lymphocytes # (Manual) Monocytes % (Manual) Eosinophils % (Manual) Monocytes # (Manual) Eosinophils # (Manual) D-Dimer Heparin Anti-Xa Level ABG pH POC ABG pCO2 POC ABG pO2 ABG pO2 126.9 H ABG HCO3 ABG O2 Saturation ABG Base Excess ABG Hemoglobin 8.1 L ABG Oxyhemoglobin VBG pH Oxyhemoglobin Sodium Potassium Chloride Carbon Dioxide BUN Creatinine Glucose POC Glucose 120 H 128 H Lactic Acid Calcium Ferritin AST Alkaline Phosphatase Magnesium Lactate Dehydrogenase Total Creatine Kinase CK-MB (CK-2) C-Reactive Protein Total Protein Albumin Troponin T HDL Cholesterol Urine WBC (Auto) Urine Creatinine Urine Total Protein Coronavirus (PCR) Crossmatch 07/04/20 07/04/20 07/05/20 11:54 18:00 00:07 WBC RBC Hgb Hct MCHC RDW Lymph % (Auto) [place] % (Auto) Eos % (Auto) Lymph # [place] # Lymph # (Auto) [place] # (Auto) Seg Neutrophils % Seg Neuts % (Manual) Lymphocytes % (Manual) Seg Neutrophils # Seg Neutrophils # Man Lymphocytes # (Manual) Monocytes % (Manual) Eosinophils % (Manual) Monocytes # (Manual) Eosinophils # (Manual) D-Dimer Heparin Anti-Xa Level ABG pH POC ABG pCO2 POC ABG pO2 ABG pO2 ABG HCO3 ABG O2 Saturation ABG Base Excess ABG Hemoglobin ABG Oxyhemoglobin VBG pH Oxyhemoglobin Sodium Potassium Chloride Carbon Dioxide BUN Creatinine Glucose POC Glucose 168 H 133 H 121 H Lactic Acid Calcium Ferritin AST Alkaline Phosphatase Magnesium Lactate Dehydrogenase Total Creatine Kinase CK-MB (CK-2) C-Reactive Protein Total Protein Albumin Troponin T HDL Cholesterol Urine WBC (Auto) Urine Creatinine Urine Total Protein Coronavirus (PCR) Crossmatch 07/05/20 07/05/20 07/05/20 01:12 02:30 12:09 WBC RBC 2.35 L Hgb 6.9 L Hct 21.1 L MCHC RDW 16.8 H Lymph % (Auto) [place] % (Auto) Eos % (Auto) Lymph # [place] # Lymph # (Auto) [place] # (Auto) Seg Neutrophils % Seg Neuts % (Manual) 74.0 H Lymphocytes % (Manual) 12.0 L Seg Neutrophils # Seg Neutrophils # Man 8.0 H Lymphocytes # (Manual) Monocytes % (Manual) 9.0 H Eosinophils % (Manual) Monocytes # (Manual) 1.0 H Eosinophils # (Manual) D-Dimer Heparin Anti-Xa Level ABG pH POC ABG pCO2 POC ABG pO2 ABG pO2 ABG HCO3 ABG O2 Saturation ABG Base Excess ABG Hemoglobin ABG Oxyhemoglobin VBG pH Oxyhemoglobin Sodium Potassium Chloride Carbon Dioxide BUN Creatinine Glucose POC Glucose 132 H Lactic Acid Calcium Ferritin AST Alkaline Phosphatase Magnesium Lactate Dehydrogenase Total Creatine Kinase CK-MB (CK-2) C-Reactive Protein Total Protein Albumin Troponin T HDL Cholesterol Urine WBC (Auto) Urine Creatinine Urine Total Protein Coronavirus (PCR) Crossmatch See Detail 07/05/20 07/05/20 07/05/20 13:05 18:04 23:13 WBC RBC 2.57 L Hgb 7.7 L Hct 23.0 L MCHC RDW 16.9 H Lymph % (Auto) [place] % (Auto) Eos % (Auto) Lymph # [place] # Lymph # (Auto) [place] # (Auto) Seg Neutrophils % Seg Neuts % (Manual) Lymphocytes % (Manual) Seg Neutrophils # Seg Neutrophils # Man Lymphocytes # (Manual) Monocytes % (Manual) Eosinophils % (Manual) Monocytes # (Manual) Eosinophils # (Manual) D-Dimer Heparin Anti-Xa Level ABG pH 7.32 L POC ABG pCO2 POC ABG pO2 ABG pO2 78.3 L ABG HCO3 ABG O2 Saturation ABG Base Excess -2.6 L ABG Hemoglobin 7.3 L ABG Oxyhemoglobin VBG pH Oxyhemoglobin Sodium Potassium Chloride Carbon Dioxide BUN Creatinine Glucose POC Glucose 160 H Lactic Acid Calcium Ferritin AST Alkaline Phosphatase Magnesium Lactate Dehydrogenase Total Creatine Kinase CK-MB (CK-2) C-Reactive Protein Total Protein Albumin Troponin T HDL Cholesterol Urine WBC (Auto) Urine Creatinine Urine Total Protein Coronavirus (PCR) Crossmatch 07/05/20 07/05/20 07/06/20 23:13 23:43 13:20 WBC RBC Hgb Hct MCHC RDW Lymph % (Auto) [place] % (Auto) Eos % (Auto) Lymph # [place] # Lymph # (Auto) [place] # (Auto) Seg Neutrophils % Seg Neuts % (Manual) Lymphocytes % (Manual) Seg Neutrophils # Seg Neutrophils # Man Lymphocytes # (Manual) Monocytes % (Manual) Eosinophils % (Manual) Monocytes # (Manual) Eosinophils # (Manual) D-Dimer Heparin Anti-Xa Level ABG pH POC ABG pCO2 POC ABG pO2 ABG pO2 ABG HCO3 ABG O2 Saturation ABG Base Excess ABG Hemoglobin ABG Oxyhemoglobin VBG pH Oxyhemoglobin Sodium Potassium Chloride Carbon Dioxide 20 L BUN 80 H Creatinine 2.4 H D Glucose 124 H POC Glucose 121 H Lactic Acid Calcium 7.6 L Ferritin AST Alkaline Phosphatase Magnesium Lactate Dehydrogenase Total Creatine Kinase CK-MB (CK-2) C-Reactive Protein Total Protein Albumin Troponin T HDL Cholesterol Urine WBC (Auto) Urine Creatinine 33.3 H Urine Total Protein Coronavirus (PCR) Crossmatch 07/06/20 07/06/20 07/07/20 14:48 17:28 00:12 WBC RBC Hgb Hct MCHC RDW Lymph % (Auto) [place] % (Auto) Eos % (Auto) Lymph # [place] # Lymph # (Auto) [place] # (Auto) Seg Neutrophils % Seg Neuts % (Manual) Lymphocytes % (Manual) Seg Neutrophils # Seg Neutrophils # Man Lymphocytes # (Manual) Monocytes % (Manual) Eosinophils % (Manual) Monocytes # (Manual) Eosinophils # (Manual) D-Dimer Heparin Anti-Xa Level ABG pH POC ABG pCO2 POC ABG pO2 ABG pO2 ABG HCO3 ABG O2 Saturation ABG Base Excess ABG Hemoglobin ABG Oxyhemoglobin VBG pH Oxyhemoglobin Sodium 136 L Potassium 5.5 H Chloride Carbon Dioxide 19 L BUN 82 H Creatinine 2.5 H Glucose 113 H POC Glucose 133 H 154 H Lactic Acid Calcium 7.7 L Ferritin AST Alkaline Phosphatase Magnesium Lactate Dehydrogenase Total Creatine Kinase CK-MB (CK-2) C-Reactive Protein Total Protein Albumin Troponin T HDL Cholesterol Urine WBC (Auto) Urine Creatinine Urine Total Protein Coronavirus (PCR) Crossmatch 07/07/20 07/07/20 07/07/20 04:15 04:15 05:31 WBC RBC 2.28 L Hgb 6.8 L Hct 20.7 L MCHC RDW 16.8 H Lymph % (Auto) [place] % (Auto) Eos % (Auto) Lymph # [place] # Lymph # (Auto) [place] # (Auto) Seg Neutrophils % Seg Neuts % (Manual) Lymphocytes % (Manual) 13.0 L Seg Neutrophils # Seg Neutrophils # Man Lymphocytes # (Manual) 1.0 L Monocytes % (Manual) 11.0 H Eosinophils % (Manual) Monocytes # (Manual) 0.9 H Eosinophils # (Manual) D-Dimer Heparin Anti-Xa Level ABG pH POC ABG pCO2 POC ABG pO2 ABG pO2 ABG HCO3 ABG O2 Saturation ABG Base Excess ABG Hemoglobin ABG Oxyhemoglobin VBG pH Oxyhemoglobin Sodium Potassium Chloride Carbon Dioxide BUN Creatinine Glucose POC Glucose 135 H Lactic Acid Calcium Ferritin AST Alkaline Phosphatase Magnesium 2.50 H Lactate Dehydrogenase Total Creatine Kinase CK-MB (CK-2) C-Reactive Protein Total Protein Albumin Troponin T HDL Cholesterol Urine WBC (Auto) Urine Creatinine Urine Total Protein Coronavirus (PCR) Crossmatch 07/07/20 07/07/20 07/07/20 12:31 13:22 17:55 WBC RBC Hgb Hct MCHC RDW Lymph % (Auto) [place] % (Auto) Eos % (Auto) Lymph # [place] # Lymph # (Auto) [place] # (Auto) Seg Neutrophils % Seg Neuts % (Manual) Lymphocytes % (Manual) Seg Neutrophils # Seg Neutrophils # Man Lymphocytes # (Manual) Monocytes % (Manual) Eosinophils % (Manual) Monocytes # (Manual) Eosinophils # (Manual) D-Dimer Heparin Anti-Xa Level ABG pH POC ABG pCO2 POC ABG pO2 ABG pO2 ABG HCO3 ABG O2 Saturation ABG Base Excess ABG Hemoglobin ABG Oxyhemoglobin VBG pH Oxyhemoglobin Sodium Potassium 5.6 H Chloride Carbon Dioxide BUN 86 H Creatinine 2.9 H Glucose 127 H POC Glucose 131 H 136 H Lactic Acid Calcium 8.1 L Ferritin AST Alkaline Phosphatase Magnesium Lactate Dehydrogenase Total Creatine Kinase CK-MB (CK-2) C-Reactive Protein Total Protein Albumin Troponin T HDL Cholesterol Urine WBC (Auto) Urine Creatinine Urine Total Protein Coronavirus (PCR) Crossmatch 07/07/20 07/08/20 07/08/20 23:33 04:14 04:14 WBC RBC 3.28 L Hgb 9.7 L Hct 28.9 L D MCHC RDW 16.4 H Lymph % (Auto) 10.3 L [place] % (Auto) 10.0 H Eos % (Auto) Lymph # [place] # Lymph # (Auto) 1.1 L [place] # (Auto) 1.1 H Seg Neutrophils % 77.2 H Seg Neuts % (Manual) Lymphocytes % (Manual) Seg Neutrophils # 8.2 H Seg Neutrophils # Man Lymphocytes # (Manual) Monocytes % (Manual) Eosinophils % (Manual) Monocytes # (Manual) Eosinophils # (Manual) D-Dimer Heparin Anti-Xa Level ABG pH POC ABG pCO2 POC ABG pO2 ABG pO2 ABG HCO3 ABG O2 Saturation ABG Base Excess ABG Hemoglobin ABG Oxyhemoglobin VBG pH Oxyhemoglobin Sodium 136 L Potassium Chloride Carbon Dioxide BUN 84 H Creatinine 2.8 H Glucose 109 H POC Glucose 159 H Lactic Acid Calcium 8.1 L Ferritin AST Alkaline Phosphatase Magnesium 2.50 H Lactate Dehydrogenase Total Creatine Kinase CK-MB (CK-2) C-Reactive Protein Total Protein Albumin Troponin T HDL Cholesterol Urine WBC (Auto) Urine Creatinine Urine Total Protein Coronavirus (PCR) Crossmatch 07/08/20 07/08/20 07/08/20 12:10 18:10 23:50 WBC RBC Hgb Hct MCHC RDW Lymph % (Auto) [place] % (Auto) Eos % (Auto) Lymph # [place] # Lymph # (Auto) [place] # (Auto) Seg Neutrophils % Seg Neuts % (Manual) Lymphocytes % (Manual) Seg Neutrophils # Seg Neutrophils # Man Lymphocytes # (Manual) Monocytes % (Manual) Eosinophils % (Manual) Monocytes # (Manual) Eosinophils # (Manual) D-Dimer Heparin Anti-Xa Level ABG pH POC ABG pCO2 POC ABG pO2 ABG pO2 ABG HCO3 ABG O2 Saturation ABG Base Excess ABG Hemoglobin ABG Oxyhemoglobin VBG pH Oxyhemoglobin Sodium Potassium Chloride Carbon Dioxide BUN Creatinine Glucose POC Glucose 108 H 125 H 141 H Lactic Acid Calcium Ferritin AST Alkaline Phosphatase Magnesium Lactate Dehydrogenase Total Creatine Kinase CK-MB (CK-2) C-Reactive Protein Total Protein Albumin Troponin T HDL Cholesterol Urine WBC (Auto) Urine Creatinine Urine Total Protein Coronavirus (PCR) Crossmatch 07/09/20 07/09/20 07/09/20 05:39 11:57 17:56 WBC RBC Hgb Hct MCHC RDW Lymph % (Auto) [place] % (Auto) Eos % (Auto) Lymph # [place] # Lymph # (Auto) [place] # (Auto) Seg Neutrophils % Seg Neuts % (Manual) Lymphocytes % (Manual) Seg Neutrophils # Seg Neutrophils # Man Lymphocytes # (Manual) Monocytes % (Manual) Eosinophils % (Manual) Monocytes # (Manual) Eosinophils # (Manual) D-Dimer Heparin Anti-Xa Level ABG pH POC ABG pCO2 POC ABG pO2 ABG pO2 ABG HCO3 ABG O2 Saturation ABG Base Excess ABG Hemoglobin ABG Oxyhemoglobin VBG pH Oxyhemoglobin Sodium Potassium Chloride Carbon Dioxide BUN Creatinine Glucose POC Glucose 121 H 123 H 119 H Lactic Acid Calcium Ferritin AST Alkaline Phosphatase Magnesium Lactate Dehydrogenase Total Creatine Kinase CK-MB (CK-2) C-Reactive Protein Total Protein Albumin Troponin T HDL Cholesterol Urine WBC (Auto) Urine Creatinine Urine Total Protein Coronavirus (PCR) Crossmatch 07/10/20 07/10/20 07/10/20 00:29 05:50 10:41 WBC RBC 3.11 L Hgb 9.2 L Hct 27.6 L MCHC RDW 16.6 H Lymph % (Auto) [place] % (Auto) Eos % (Auto) Lymph # [place] # Lymph # (Auto) [place] # (Auto) Seg Neutrophils % Seg Neuts % (Manual) 78.0 H Lymphocytes % (Manual) 11.0 L Seg Neutrophils # Seg Neutrophils # Man Lymphocytes # (Manual) 1.0 L Monocytes % (Manual) Eosinophils % (Manual) Monocytes # (Manual) Eosinophils # (Manual) D-Dimer Heparin Anti-Xa Level ABG pH POC ABG pCO2 POC ABG pO2 ABG pO2 ABG HCO3 ABG O2 Saturation ABG Base Excess ABG Hemoglobin ABG Oxyhemoglobin VBG pH Oxyhemoglobin Sodium Potassium Chloride Carbon Dioxide BUN Creatinine Glucose POC Glucose 122 H 124 H Lactic Acid Calcium Ferritin AST Alkaline Phosphatase Magnesium Lactate Dehydrogenase Total Creatine Kinase CK-MB (CK-2) C-Reactive Protein Total Protein Albumin Troponin T HDL Cholesterol Urine WBC (Auto) Urine Creatinine Urine Total Protein Coronavirus (PCR) Crossmatch 07/10/20 07/10/20 07/10/20 10:41 12:25 18:10 WBC RBC Hgb Hct MCHC RDW Lymph % (Auto) [place] % (Auto) Eos % (Auto) Lymph # [place] # Lymph # (Auto) [place] # (Auto) Seg Neutrophils % Seg Neuts % (Manual) Lymphocytes % (Manual) Seg Neutrophils # Seg Neutrophils # Man Lymphocytes # (Manual) Monocytes % (Manual) Eosinophils % (Manual) Monocytes # (Manual) Eosinophils # (Manual) D-Dimer Heparin Anti-Xa Level ABG pH POC ABG pCO2 POC ABG pO2 ABG pO2 ABG HCO3 ABG O2 Saturation ABG Base Excess ABG Hemoglobin ABG Oxyhemoglobin VBG pH Oxyhemoglobin Sodium Potassium Chloride Carbon Dioxide BUN 85 H Creatinine 2.5 H Glucose 133 H POC Glucose 131 H 134 H Lactic Acid Calcium Ferritin AST Alkaline Phosphatase 131 H Magnesium Lactate Dehydrogenase Total Creatine Kinase CK-MB (CK-2) C-Reactive Protein Total Protein 5.2 L Albumin 1.6 L Troponin T HDL Cholesterol Urine WBC (Auto) Urine Creatinine Urine Total Protein Coronavirus (PCR) Crossmatch 07/11/20 07/11/20 07/11/20 00:28 05:57 12:14 WBC RBC Hgb Hct MCHC RDW Lymph % (Auto) [place] % (Auto) Eos % (Auto) Lymph # [place] # Lymph # (Auto) [place] # (Auto) Seg Neutrophils % Seg Neuts % (Manual) Lymphocytes % (Manual) Seg Neutrophils # Seg Neutrophils # Man Lymphocytes # (Manual) Monocytes % (Manual) Eosinophils % (Manual) Monocytes # (Manual) Eosinophils # (Manual) D-Dimer Heparin Anti-Xa Level ABG pH POC ABG pCO2 POC ABG pO2 ABG pO2 ABG HCO3 ABG O2 Saturation ABG Base Excess ABG Hemoglobin ABG Oxyhemoglobin VBG pH Oxyhemoglobin Sodium Potassium Chloride Carbon Dioxide BUN Creatinine Glucose POC Glucose 140 H 148 H 147 H Lactic Acid Calcium Ferritin AST Alkaline Phosphatase Magnesium Lactate Dehydrogenase Total Creatine Kinase CK-MB (CK-2) C-Reactive Protein Total Protein Albumin Troponin T HDL Cholesterol Urine WBC (Auto) Urine Creatinine Urine Total Protein Coronavirus (PCR) Crossmatch 07/11/20 07/11/20 07/12/20 17:28 23:49 05:14 WBC RBC 2.78 L Hgb 8.5 L Hct 25.3 L MCHC RDW 16.7 H Lymph % (Auto) [place] % (Auto) Eos % (Auto) Lymph # [place] # Lymph # (Auto) [place] # (Auto) Seg Neutrophils % Seg Neuts % (Manual) 81.0 H Lymphocytes % (Manual) 6.0 L Seg Neutrophils # Seg Neutrophils # Man Lymphocytes # (Manual) 0.6 L Monocytes % (Manual) 8.0 H Eosinophils % (Manual) Monocytes # (Manual) Eosinophils # (Manual) D-Dimer Heparin Anti-Xa Level ABG pH POC ABG pCO2 POC ABG pO2 ABG pO2 ABG HCO3 ABG O2 Saturation ABG Base Excess ABG Hemoglobin ABG Oxyhemoglobin VBG pH Oxyhemoglobin Sodium Potassium Chloride Carbon Dioxide BUN Creatinine Glucose POC Glucose 175 H 114 H Lactic Acid Calcium Ferritin AST Alkaline Phosphatase Magnesium Lactate Dehydrogenase Total Creatine Kinase CK-MB (CK-2) C-Reactive Protein Total Protein Albumin Troponin T HDL Cholesterol Urine WBC (Auto) Urine Creatinine Urine Total Protein Coronavirus (PCR) Crossmatch 07/12/20 07/12/20 07/12/20 05:14 05:44 11:32 WBC RBC Hgb Hct MCHC RDW Lymph % (Auto) [place] % (Auto) Eos % (Auto) Lymph # [place] # Lymph # (Auto) [place] # (Auto) Seg Neutrophils % Seg Neuts % (Manual) Lymphocytes % (Manual) Seg Neutrophils # Seg Neutrophils # Man Lymphocytes # (Manual) Monocytes % (Manual) Eosinophils % (Manual) Monocytes # (Manual) Eosinophils # (Manual) D-Dimer Heparin Anti-Xa Level ABG pH POC ABG pCO2 POC ABG pO2 ABG pO2 ABG HCO3 ABG O2 Saturation ABG Base Excess ABG Hemoglobin ABG Oxyhemoglobin VBG pH Oxyhemoglobin Sodium Potassium Chloride Carbon Dioxide BUN 79 H Creatinine 2.2 H Glucose 131 H POC Glucose 116 H 132 H Lactic Acid Calcium Ferritin AST Alkaline Phosphatase Magnesium Lactate Dehydrogenase Total Creatine Kinase CK-MB (CK-2) C-Reactive Protein Total Protein Albumin Troponin T HDL Cholesterol Urine WBC (Auto) Urine Creatinine Urine Total Protein Coronavirus (PCR) Crossmatch 07/12/20 07/13/20 07/13/20 17:53 00:18 04:53 WBC RBC 2.86 L Hgb 8.4 L Hct 25.7 L MCHC RDW 16.8 H Lymph % (Auto) [place] % (Auto) Eos % (Auto) Lymph # [place] # Lymph # (Auto) [place] # (Auto) Seg Neutrophils % Seg Neuts % (Manual) 84.0 H Lymphocytes % (Manual) 7.0 L Seg Neutrophils # Seg Neutrophils # Man Lymphocytes # (Manual) 0.6 L Monocytes % (Manual) Eosinophils % (Manual) Monocytes # (Manual) Eosinophils # (Manual) D-Dimer Heparin Anti-Xa Level ABG pH POC ABG pCO2 POC ABG pO2 ABG pO2 ABG HCO3 ABG O2 Saturation ABG Base Excess ABG Hemoglobin ABG Oxyhemoglobin VBG pH Oxyhemoglobin Sodium Potassium Chloride Carbon Dioxide BUN Creatinine Glucose POC Glucose 155 H 162 H Lactic Acid Calcium Ferritin AST Alkaline Phosphatase Magnesium Lactate Dehydrogenase Total Creatine Kinase CK-MB (CK-2) C-Reactive Protein Total Protein Albumin Troponin T HDL Cholesterol Urine WBC (Auto) Urine Creatinine Urine Total Protein Coronavirus (PCR) Crossmatch 07/13/20 07/13/20 04:53 06:14 WBC RBC Hgb Hct MCHC RDW Lymph % (Auto) [place] % (Auto) Eos % (Auto) Lymph # [place] # Lymph # (Auto) [place] # (Auto) Seg Neutrophils % Seg Neuts % (Manual) Lymphocytes % (Manual) Seg Neutrophils # Seg Neutrophils # Man Lymphocytes # (Manual) Monocytes % (Manual) Eosinophils % (Manual) Monocytes # (Manual) Eosinophils # (Manual) D-Dimer Heparin Anti-Xa Level ABG pH POC ABG pCO2 POC ABG pO2 ABG pO2 ABG HCO3 ABG O2 Saturation ABG Base Excess ABG Hemoglobin ABG Oxyhemoglobin VBG pH Oxyhemoglobin Sodium 136 L Potassium Chloride Carbon Dioxide BUN 78 H Creatinine 2.0 H Glucose 130 H POC Glucose 141 H Lactic Acid Calcium Ferritin AST Alkaline Phosphatase Magnesium Lactate Dehydrogenase Total Creatine Kinase CK-MB (CK-2) C-Reactive Protein Total Protein Albumin Troponin T HDL Cholesterol Urine WBC (Auto) Urine Creatinine Urine Total Protein Coronavirus (PCR) Crossmatch Allied health notes reviewed: nursing
[2020-07-13] MEDS: INSULIN GLARGINE 100 UNITS/ML SUB-Q SCH (21:04)
[2020-07-14] MEDS: INSULIN LISPRO 100 UNIT/ML VIAL 3 mL SUB-Q SCH ×4 (02:47→18:40)
[2020-07-14] MEDS: hydrALAZINE 25 MG TAB PO SCH (06:33)
[2020-07-14] MEDS: HEPARIN 5,000 UNIT/1 ML VIAL SUB-Q SCH ×3 (06:33→22:47)
[2020-07-14] MEDS: cloNIDine 0.2 MG TAB PO SCH ×2 (09:07→22:46)
[2020-07-14] MEDS: GLYCOPYRROLATE 2 MG TAB PO SCH ×3 (09:07→22:45)
[2020-07-14] MEDS: carvediloL 12.5 MG TAB PO SCH ×2 (09:08→22:46)
[2020-07-14] MEDS: amLODIPine 10 MG TAB PO SCH (09:08)
[2020-07-14] MEDS: LANSOPRAZOLE 30 MG SOLUTAB FEEDTUBE SCH ×2 (09:08→22:45)
[2020-07-14] MEDS: MODAFINIL 100 MG TAB PO SCH (09:08)
[2020-07-14] MEDS: levETIRAcetam 500 MG/5 ML ORAL LIQD PO SCH ×2 (09:09→22:46)
[2020-07-14] MEDS: SENNOSIDES ORAL LIQD 8.8 MG/5 ML ORAL LIQD FEEDTUBE SCH (09:09)
--- NOTE | 2020-07-14 09:28 | Progress Note ---
Assessment and Plan Assessment and plan: 05/28/2020 COVID-19 test positive 06/29/2020 COVID-19 test positive 07/14/2020 COVID-19 test positive -- Acute hypoxemic respiratory failure; vent dependent intubated on admission, extubated on 06/12/20 then placed on high flow o2 patient developed another respiratory arrest on 06/26 - reintubated Patient not tolerating weaning parameters CC following, Surgery evaluated the patient for trach and PEG Awaiting call with test if negative will be scheduled --Hyperkalemia; resolved Monitor electrolytes -- Hypertension; uncontrolled Increase hydralazine dose to 75 mg 3 times a day Continue amlodipine, coreg, clonidine and hydralazine --Worsening renal function; creatinine 2.4-2.5-2.9 Vasomotor nephropathy, gentle hydration Avoid nephrotoxins, monitor renal function Reconsult nephrology --Rectal bleeding; Hb dropped from 8.2 -6.9-7.7-6.8 today, Transfused 1 unit PRBC Closely monitor H&H, GI following, no plans of endoscopy --Acute blood loss anemia; Received 2 units of PRBC transfusion, Hb improved from 6.9-7.7-6.8 Patient received 2 units of PRBC in the past, transfuse 1 additional unit today Closely monitor H&H -- s/p cardiopulmonary arrest on admission, 06/26 and 07/01, s/p CPR per ACLS p rotocol, refer to code sheet --Severe sepsis persistently positive for COVID-19 and Klebsiella pneumoniae ID following, completed treatment for COVID-19 and completed antibiotic --COVID-19 b/l PNA Completed remdesivir on 06/02 Completed dexamethasone - Last dose 06/07 ID recs appreciated. COVID-19 positive since 05/28/2020 Repeat test 06/29 still positive --Superficial left cephalic vein DVT/elevated D-dimers[COVID 19] Patient initially started on heparin drip from 05/29/20 D-dimers improved [id number] Heparin drip discontinued treated with Eliquis 5 mg twice a day for 1 week[per ID] stop date 06/26/2020 -- Acute toxic metabolic encephalopathy, POA likely from sepsis and s/p cardiac arrest with possible anoxic injury -- Acute renal failure: likely ATN Resolved, avoid nephrotoxins --Klebsiella pneumonia: Initially completed antibiotics with cefepime Repeat sputum culture still positive for Klebsiella, restarted antibiotic Completed second round of 5 days of cefepime on 07/04/2020 --Acute on chronic systolic heart failure Cardiology following. Ef 45% -- Coffee ground emesis -Stress ulcers Possible stress ulcers, On PPI H/H again dropped - transfuse GI evaluated --Transaminitis. Etiology likely from COVID-19. cont to monitor -- DVT prophylaxis Eliquis, SCD to bilateral lower extremities while in bed -- Advance care planning Patient is critically ill with multiple medical problems Poor prognosis, family updated and requesting full code 07/11/2020. Patient currently on mechanical ventilation AC/PRVC with rate of 12, tidal volume 450, FiO2 30% and PEEP of 6 07/12/2020. Patient placed on CPAP with pressure support of 10 and tolerating well. Continue PSB trials as tolerated. 07/13/2020. Patient currently with AC mode rate 12, tidal volume 450, FiO2 30% and PEEP of 6. Surgery has been consulted for trach and PEG placement. Recall nephrology for renal insufficiency. 07/14/20; surgery evaluated for trach and PEG , pending call with test which is is positive today Patient has total 3+ COVID-19 tests since admission 05/28/2020 COVID-19 test positive 06/29/2020 COVID-19 test positive 07/14/2020 COVID-19 test positive History Interval history: Patient is evaluated by surgery for possible trach and PEG Awaiting COVID-19 test, if negative will be scheduled Seen and examined the patient at bedside in ICU this morning Isolation precautions, PPE protocols strictly followed Patient remains intubated on ventilatory support Surgery considering trach and PEG pending call with test Vital signs noted Morbidly obese Hospitalist Physical - Constitutional Vitals: Temp Pulse Resp BP Pulse Ox 97.8 F 80 17 167/72 99 07/14/20 04:00 07/14/20 09:08 07/14/20 08:00 07/14/20 09:08 07/14/20 08:00 General appearance: Present: mild distress, well-nourished, obese (Morbidly obese), other (Intubated on ventilatory support) - EENT Eyes: Present: PERRL, EOM intact - Neck Neck: Present: supple, normal ROM - Respiratory Respiratory effort: normal Respiratory: bilateral: diminished, rhonchi, negative: rales, wheezing - Cardiovascular Rhythm: regular Heart Sounds: Present: S1 & S2 - Extremities Extremities: no ischemia Extremity abnormal: edema - Abdominal General gastrointestinal: soft, non-tender, non-distended, normal bowel sounds - Integumentary Integumentary: Present: clear, warm - Psychiatric Psychiatric: other - Neurologic Neurologic: other HEART Score - HEART Score Troponin: Troponin T 0.067 ng/mL (0.00-0.029) H 07/01/20 06:01 Results - Labs CBC & Chem 7: 07/13/20 04:53 07/13/20 04:53 Labs: Laboratory Last Values WBC 8.5 K/mm3 (4.5-11.0) 07/13/20 04:53 RBC 2.86 M/mm3 (3.65-5.03) L 07/13/20 04:53 Hgb 8.4 gm/dl (10.1-14.3) L 07/13/20 04:53 Hct 25.7 % (30.3-42.9) L 07/13/20 04:53 MCV 90 fl (79-97) 07/13/20 04:53 MCH 30 pg (28-32) 07/13/20 04:53 MCHC 33 % (30-34) 07/13/20 04:53 RDW 16.8 % (13.2-15.2) H 07/13/20 04:53 Plt Count 298 K/mm3 (140-440) 07/13/20 04:53 Lymph % (Auto) 10.3 % (13.4-35.0) L 07/08/20 04:14 [place] % (Auto) 10.0 % (0.0-7.3) H 07/08/20 04:14 Eos % (Auto) 2.0 % (0.0-4.3) 07/08/20 04:14 Baso % (Auto) 0.5 % (0.0-1.8) 07/08/20 04:14 Lymph # (Auto) 1.1 K/mm3 (1.2-5.4) L 07/08/20 04:14 [place] # (Auto) 1.1 K/mm3 (0.0-0.8) H 07/08/20 04:14 Eos # (Auto) 0.2 K/mm3 (0.0-0.4) 07/08/20 04:14 Baso # (Auto) 0.1 K/mm3 (0.0-0.1) 07/08/20 04:14 Add Manual Diff Complete 07/13/20 04:53 Total Counted 100 07/13/20 04:53 Seg Neutrophils % 77.2 % (40.0-70.0) H 07/08/20 04:14 Seg Neuts % (Manual) 84.0 % (40.0-70.0) H 07/13/20 04:53 Band Neutrophils % 1.0 % 07/13/20 04:53 Lymphocytes % (Manual) 7.0 % (13.4-35.0) L 07/13/20 04:53 Reactive Lymphs % (Man) 0 % 07/13/20 04:53 Monocytes % (Manual) 5.0 % (0.0-7.3) 07/13/20 04:53 Eosinophils % (Manual) 1.0 % (0.0-4.3) 07/13/20 04:53 Basophils % (Manual) 0 % (0.0-1.8) 07/13/20 04:53 Metamyelocytes % 2.0 % 07/13/20 04:53 Myelocytes % 0 % 07/13/20 04:53 Promyelocytes % 0 % 07/13/20 04:53 Blast Cells % 0 % 07/13/20 04:53 Nucleated RBC % Not Reportable 07/13/20 04:53 Seg Neutrophils # 8.2 K/mm3 (1.8-7.7) H 07/08/20 04:14 Seg Neutrophils # Man 7.1 K/mm3 (1.8-7.7) 07/13/20 04:53 Band Neutrophils # 0.1 K/mm3 07/13/20 04:53 Lymphocytes # (Manual) 0.6 K/mm3 (1.2-5.4) L 07/13/20 04:53 Abs React Lymphs (Man) 0.0 K/mm3 07/13/20 04:53 Monocytes # (Manual) 0.4 K/mm3 (0.0-0.8) 07/13/20 04:53 Eosinophils # (Manual) 0.1 K/mm3 (0.0-0.4) 07/13/20 04:53 Basophils # (Manual) 0.0 K/mm3 (0.0-0.1) 07/13/20 04:53 Metamyelocytes # 0.2 K/mm3 07/13/20 04:53 Myelocytes # 0.0 K/mm3 07/13/20 04:53 Promyelocytes # 0.0 K/mm3 07/13/20 04:53 Blast Cells # 0.0 K/mm3 07/13/20 04:53 WBC Morphology Not Reportable 07/13/20 04:53 Hypersegmented Neuts Not Reportable 07/13/20 04:53 Hyposegmented Neuts Not Reportable 07/13/20 04:53 Hypogranular Neuts Not Reportable 07/13/20 04:53 Smudge Cells Not Reportable 07/13/20 04:53 Toxic Granulation Not Reportable 07/13/20 04:53 Toxic Vacuolation Not Reportable 07/13/20 04:53 Dohle Bodies Not Reportable 07/13/20 04:53 Pelger-Huet Anomaly Not Reportable 07/13/20 04:53 Sanjuanita Rods Not Reportable 07/13/20 04:53 Platelet Estimate Consistent w auto 07/13/20 04:53 Clumped Platelets Not Reportable 07/13/20 04:53 Plt Clumps, EDTA Not Reportable 07/13/20 04:53 Large Platelets Not Reportable 07/13/20 04:53 Giant Platelets Not Reportable 07/13/20 04:53 Platelet Satelliting Not Reportable 07/13/20 04:53 Plt Morphology Comment Not Reportable 07/13/20 04:53 RBC Morphology Not Reportable 07/13/20 04:53 Dimorphic RBCs Not Reportable 07/13/20 04:53 Polychromasia Not Reportable 07/13/20 04:53 Hypochromasia Not Reportable 07/13/20 04:53 Poikilocytosis Not Reportable 07/13/20 04:53 Anisocytosis 1+ 07/13/20 04:53 Microcytosis Not Reportable 07/13/20 04:53 Macrocytosis Not Reportable 07/13/20 04:53 Spherocytes Not Reportable 07/13/20 04:53 Pappenheimer Bodies Not Reportable 07/13/20 04:53 Sickle Cells Not Reportable 07/13/20 04:53 Target Cells Not Reportable 07/13/20 04:53 Tear Drop Cells Not Reportable 07/13/20 04:53 Ovalocytes Not Reportable 07/13/20 04:53 Helmet Cells Not Reportable 07/13/20 04:53 Jones-Proctor Bodies Not Reportable 07/13/20 04:53 [place] Rings Not Reportable 07/13/20 04:53 [place] Cells Not Reportable 07/13/20 04:53 Bite Cells Not Reportable 07/13/20 04:53 Crenated Cell Not Reportable 07/13/20 04:53 Elliptocytes Not Reportable 07/13/20 04:53 Acanthocytes (Spur) Not Reportable 07/13/20 04:53 Rouleaux Not Reportable 07/13/20 04:53 Hemoglobin C Crystals Not Reportable 07/13/20 04:53 Schistocytes Not Reportable 07/13/20 04:53 Malaria parasites Not Reportable 07/13/20 04:53 Kev Bodies Not Reportable 07/13/20 04:53 Hem Pathologist Commnt No 07/13/20 04:53 PT 14.2 Sec. (12.2-14.9) 05/29/20 15:10 INR 1.08 (0.87-1.13) 05/29/20 15:10 APTT 27.2 Sec. (24.2-36.6) 05/29/20 15:10 D-Dimer 2310.15 ng/mlDDU (0-234) H 06/29/20 14:45 Heparin Anti-Xa Level 0.34 U.I./ml (0.3-0.7) 06/19/20 10:46 ABG pH 7.32 pH Units (7.350-7.450) L 07/05/20 13:05 POC ABG pCO2 35.8 mmHg (32.0-48.0) 07/01/20 05:02 ABG pCO2 47.0 mm Hg 07/05/20 13:05 ABG Oxyhemoglobin 92.6 (94-98) L 06/23/20 12:34 POC ABG pO2 90.8 mmHg (83-108) 07/01/20 05:02 ABG pO2 78.3 mm Hg (80.0-90.0) L 07/05/20 13:05 POC ABG HCO3 22.1 07/01/20 05:02 ABG HCO3 23.4 mmol/L (20.0-26.0) 07/05/20 13:05 ABG O2 Saturation 96.1 % (95.0-99.0) 07/05/20 13:05 ABG O2 Content 0.3 (0.0-44) 07/05/20 13:05 POC ABG Base Excess -2.3 07/01/20 05:02 ABG Base Excess -2.6 mmol/L (-2.0-3.0) L 07/05/20 13:05 ABG Hemoglobin 7.3 gm/dl (12.0-16.0) L 07/05/20 13:05 ABG Carboxyhemoglobin 1.7 % (0.0-5.0) 07/05/20 13:05 ABG Methemoglobin 0.2 % (0.0-1.5) 07/05/20 13:05 VBG pH 7.152 (7.320-7.420) L* 05/28/20 13:47 Carboxyhemoglobin 0.5 (0.5-1.5) 06/23/20 12:34 Oxyhemoglobin 97.4 % (95.0-99.0) 07/05/20 13:05 FiO2 30 % 07/05/20 13:05 Sodium 136 mmol/L (137-145) L 07/13/20 04:53 Potassium 5.0 mmol/L (3.6-5.0) 07/13/20 04:53 Chloride 102.4 mmol/L (98-107) 07/13/20 04:53 Carbon Dioxide 27 mmol/L (22-30) 07/13/20 04:53 Anion Gap 12 mmol/L 07/13/20 04:53 BUN 78 mg/dL (7-17) H 07/13/20 04:53 Creatinine 2.0 mg/dL (0.6-1.2) H 07/13/20 04:53 Estimated GFR 25 ml/min 07/13/20 04:53 BUN/Creatinine Ratio 39 % 07/13/20 04:53 Glucose 130 mg/dL (65-100) H 07/13/20 04:53 POC Glucose 169 (70-105) H 07/14/20 05:43 Lactic Acid 0.60 mmol/L (0.7-2.0) L 06/27/20 05:00 Calcium 8.7 mg/dL (8.4-10.2) 07/13/20 04:53 Ferritin 223.6 ng/mL (10.0-200.0) H 06/29/20 14:45 Magnesium 2.50 mg/dL (1.7-2.3) H 07/08/20 04:14 Lactate Dehydrogenase 367 units/L (91-180) H 06/29/20 14:45 Total Bilirubin < 0.20 mg/dL (0.1-1.2) 07/10/20 10:41 AST 25 units/L (5-40) 07/10/20 10:41 ALT 11 units/L (7-56) 07/10/20 10:41 Alkaline Phosphatase 131 units/L (35-129) H 07/10/20 10:41 C-Reactive Protein 3.60 mg/dL (0.00-1.30) H 06/29/20 14:45 Total Creatine Kinase 300 units/L (30-135) H 07/01/20 06:01 CK-MB (CK-2) 2.0 ng/mL (0.0-4.0) 07/01/20 06:01 CK-MB (CK-2) Rel Index 0.6 (0-4) 07/01/20 06:01 Troponin T 0.067 ng/mL (0.00-0.029) H 07/01/20 06:01 Total Protein 5.2 g/dL (6.3-8.2) L 07/10/20 10:41 Albumin 1.6 g/dL (3.9-5) L 07/10/20 10:41 Albumin/Globulin Ratio 0.4 % 07/10/20 10:41 Triglycerides 142 mg/dL (2-149) 07/01/20 06:01 Cholesterol 137 mg/dL (50-199) 07/01/20 06:01 LDL Cholesterol Direct 62 mg/dL (50-130) 07/01/20 06:01 HDL Cholesterol 61 mg/dL (40-59) H 07/01/20 06:01 Cholesterol/HDL Ratio 2.24 % 07/01/20 06:01 Procalcitonin 2.45 ng/mL (<0.15) 06/29/20 14:45 Urine Color Yellow (Yellow) 06/06/20 04:00 Urine Turbidity Cloudy (Clear) 06/06/20 04:00 Urine pH 5.0 (5.0-7.0) 06/06/20 04:00 Ur Specific [place] 1.012 (1.003-1.030) 06/06/20 04:00 Urine Protein 100 mg/dl mg/dL (Negative) 06/06/20 04:00 Urine Glucose (UA) 50 mg/dL (Negative) 06/06/20 04:00 Urine Ketones Neg mg/dL (Negative) 06/06/20 04:00 Urine Blood Sm (Negative) 06/06/20 04:00 Urine Nitrite Neg (Negative) 06/06/20 04:00 Urine Bilirubin Neg (Negative) 06/06/20 04:00 Urine Urobilinogen < 2.0 mg/dL (<2.0) 06/06/20 04:00 Ur Leukocyte Esterase Neg (Negative) 06/06/20 04:00 Urine WBC (Auto) 15.0 /HPF (0.0-6.0) H 06/06/20 04:00 Urine RBC (Auto) 23.0 /HPF (0.0-6.0) 06/06/20 04:00 U Epithel Cells (Auto) 8.0 /HPF (0-13.0) 06/06/20 04:00 Urine Bacteria (Auto) 2+ /HPF (Negative) 06/06/20 04:00 Amorphous Crystals 1+ 06/06/20 04:00 Hyaline Casts 16 /LPF 06/06/20 04:00 Urine Mucus 2+ /HPF 06/06/20 04:00 Urine Yeast (Budding) 2+ /HPF 06/03/20 Unknown Urine Creatinine 33.3 mg/dL (0.1-20.0) H 07/06/20 13:20 Urine Sodium 21 mmol/L 07/06/20 13:20 Urine Total Protein 196 mg/dL (5-11.8) H 06/06/20 04:00 Nasal Screen MRSA (PCR) Negative (Negative) 06/29/20 08:30 Coronavirus (PCR) Positive (Negative) A 06/29/20 Unknown Blood Type A POSITIVE 07/05/20 02:30 Antibody Screen Negative 07/05/20 02:30 Crossmatch See Detail 07/05/20 02:30 - Diagnostic Impressions Diagnostic Impressions: Echocardiogram Limited Views 05/29/20 13:52 Transthoracic Echocardiogram Indication: Pulm Embolus BP: 169/76 HR: 85 Conclusions *Limited study for RV size post cardiopulmonar arrest. *RV is only slightly dilated, no significant difference from prior echo 05/13/2020. *Global left ventricular systolic function is at the lower limits of normal. *The estimated ejection fraction is 45-50%. *Mild to moderate concentric left ventricular hypertrophy is observed. *The left and right atria are both mild to moderately dilated. Findings Left Ventricle: The left ventricular chamber size is mildly dilated. Mild to moderate concentric left ventricular hypertrophy is observed. Global left ventricular systolic function is at the lower limits of normal. The estimated ejection fraction is 45-50%. Left Atrium: The left atrium is mild to moderately dilated. Right Ventricle: The right ventricle is slightly dilated. Right Atrium: The right atrium is mild to moderately dilated. Aortic Valve: The aortic valve leaflets are moderately thickened. Mitral Valve: There is mitral annular calcification. The mitral valve leaflets are moderately thickened. Tricuspid Valve: The tricuspid valve leaflets are mildly thickened. Pericardium: A trivial pericardial effusion is visualized. NDUM: 05/29/20 1808 Amended Report Transthoracic Echocardiogram Indication: Pulm Embolus BP: 169/76 HR: 85 Conclusions *Limited study for RV size post cardiopulmonary arrest. *RV is only slightly dilated, no significant difference from prior echo 05/13/2020. *Global left ventricular systolic function is at the lower limits of normal. *The estimated ejection fraction is 45-50%. *Mild to moderate concentric left ventricular hypertrophy is observed. *The left and right atria are both mild to moderately dilated. Findings Left Ventricle: The left ventricular chamber size is mildly dilated. Mild to moderate concentric left ventricular hypertrophy is observed. Global left ventricular systolic function is at the lower limits of normal. The estimated ejection fraction is 45-50%. Left Atrium: The left atrium is mild to moderately dilated. Right Ventricle: The right ventricle is slightly dilated. Right Atrium: The right atrium is mild to moderately dilated. Aortic Valve: The aortic valve leaflets are moderately thickened. Mitral Valve: There is mitral annular calcification. The mitral valve leaflets are moderately thickened. Tricuspid Valve: The tricuspid valve leaflets are mildly thickened. Pericardium: A trivial pericardial effusion is visualized. Helm/IV: Voiding Method External Female Catheter IV Catheter Type [Left Wrist] INT / Saline Lock IV Catheter Type [Left Upper Mid-line arm] IV Catheter Type [Right CVL Internal Jugular] IV Catheter Type [Right Hand] INT / Saline Lock IV Catheter Type [Right Wrist] Not found on patient IV Catheter Type [Left Hand] INT / Saline Lock IV Catheter Type [Left INT / Saline Lock Antecubital] IV Catheter Type [Right Peripheral IV Forearm] IV Catheter Type [Left Leg] Intra-osseous Active Medications - Current Medications Current Medications: Generic Name Dose Route Start Last Admin Trade Name Freq PRN Reason Stop Dose Admin Acetaminophen 650 mg 06/09/20 10:57 06/29/20 21:18 Tylenol FEEDTUBE 650 mg Q6H PRN Administration Fever >101 Amlodipine Besylate 10 mg 06/02/20 11:00 07/14/20 09:08 Amlodipine PO 10 mg DAILY NELSON Administration Lipase/Protease/Amylase 1 each 05/29/20 13:39 07/07/20 10:36 Pancremu Lawson 10,500 Unit FEEDTUBE 1 each PRN PRN Administration For Clogged Feeding Tube Carvedilol 12.5 mg 06/03/20 10:00 07/14/20 09:08 Coreg PO 12.5 mg BID NELSON Administration Clonidine HCl 0.2 mg 06/23/20 22:00 07/14/20 09:07 Catapres PO 0.2 mg Q12HR NELSON Administration Glycopyrrolate 2 mg 06/09/20 14:00 07/14/20 09:07 Glycopyrrolate PO 2 mg TID NELSON Administration Heparin Sodium (Porcine) 5,000 unit 06/30/20 14:00 07/14/20 06:33 Heparin SUB-Q 5,000 unit Q8HR NELSON Administration Hydralazine HCl 75 mg 07/08/20 10:00 07/14/20 06:33 Apresoline PO 75 mg Q8HR NELSON Administration Hydrophilic Ointment 1 applic 05/28/20 13:49 Vaseline Lip Therapy TP Q2HR PRN Dry Lips Insulin Glargine 10 units 06/08/20 22:00 07/13/20 21:04 Lantus SUB-Q 10 units QHS NELSON Administration Insulin Human Lispro 0 unit 05/29/20 18:00 07/14/20 06:33 Humalog SUB-Q 3 unit Q6H NELSON Administration Protocol Labetalol HCl 20 mg 06/03/20 09:00 07/14/20 08:44 Labetalol IV 20 mg Q4H PRN Administration HYPERTENSION Lansoprazole 30 mg 06/05/20 22:00 07/14/20 09:08 Prevacid Solutab FEEDTUBE 30 mg BID NELSON Administration Levetiracetam 500 mg 06/16/20 11:00 07/14/20 09:09 Keppra PO 500 mg BID NELSON Administration Modafinil 100 mg 07/02/20 20:00 07/14/20 09:08 Provigil PO 100 mg DAILY NELSON Administration Multi-Ingred Cream/Lotion/Oil/Oint 1 applic 05/28/20 13:49 Artificial Tears Ophth Oint OU Q4HR PRN Dry Eye(s) Ondansetron HCl 4 mg 06/02/20 09:00 06/09/20 16:48 Zofran IV 4 mg Q8H PRN Administration Nausea And Vomiting Senna 17.6 mg 06/03/20 10:00 07/14/20 09:09 Senokot FEEDTUBE Not Given BID NELSON Simple Syrup 15 ml 05/29/20 13:39 Simple Syrup FEEDTUBE PRN PRN Hypoglycemia Simple Syrup 30 ml 05/29/20 13:39 Simple Syrup FEEDTUBE PRN PRN Hypoglycemia Sodium Bicarbonate 325 mg 05/29/20 13:39 07/07/20 10:36 Sodium Bicarbonate FEEDTUBE 325 mg PRN PRN Administration For Clogged Feeding Tube Sodium Chloride 10 ml 05/28/20 22:00 07/14/20 09:09 Sodium Chloride Flush Syringe 10 Ml IV 10 ml BID NELSON Administration Sodium Chloride 10 ml 05/28/20 19:08 06/16/20 17:50 Sodium Chloride Flush Syringe 10 Ml IV 10 ml PRN PRN Administration LINE FLUSH Nutrition/Malnutrition Assess - Dietary Evaluation Nutrition/Malnutrition Findings: Nutrition Notes Start: 05/29/20 11:45 Freq: Status: Active Protocol: Document 07/09/20 11:47 [email or web address] (Rec: 07/09/20 11:53 [email or web address]) Co-Sign 07/09/20 11:47 MK Nutrition Notes Initial or Follow up Reassessment Current Diagnosis Acute Kidney Injury,Diabetes, Heart Failure,Respiratory Failure Other Pertinent Diagnosis COVID-19 (+), Pulmonary edema, dysphagia Current Diet Glucerna 1.2 at 55ml/hr Labs/Tests Na 136 BUN 84 Cr 2.8 BG 109 Mg 2.5 Pertinent Medications Reviewed Height 5 ft 6 in Weight 123 kg Ruby Body Weight (kg) 59.09 BMI 43.7 Weight Status Morbidly Obese Subjective/Other Information F/U TF tolerance. Per RN, pt tolerating TF and running at goal rate. Percent of energy/protein needs met: 99%/53% Burn Absent Trauma Absent Current % PO Negligible Minimum of two criteria No physical signs of malnutrition Fluid Accumulation Mild (non-severe) #1 Nutrition Diagnosis Inadequate oral intake Diagnosis Progress(for reassessment Continues documentation) Is patient on ventilator? Yes Is Patient Ambulatory and/or Out of Bed No REE-([facility]-confined to bed) 2172.576 Kcal/Kg value to use for calculation 13 Approximate Energy Requirements Using 1599 kcal/Kg Calculation Used for Recommendations Kcal/kg Additional Notes Protein needs up to 148g (up to 2.5g/kg IBW) Fluid needs 1ml/kcal Nutrition Intervention Change Diet Order: Change TF Nutrition Support: Nepro at 40ml/hr Flush 150ml q4h Kcal 1,728 Protein (gm) 78 Fluid (mL) 697 Goal #1 TF tolerance Goal #2 TF to meet at least 65%-70% energy and 80% protein needs Anticipated Discharge Needs: Unable to determine at this time Follow-Up By: 07/20/20 Additional Comments F/U for TF tolerance
[2020-07-14] MEDS: hydrALAZINE 100 MG TAB PO SCH ×2 (13:12→22:45)
--- NOTE | 2020-07-14 13:32 | Progress Note ---
Assessment and Plan Cultures: Coronavirus PCR 05/28/2020: Positive 05/28/2020 blood culture: no growth 05/28/2020 tracheal aspirate: Usual respiratory bobo 05/28/2020 urine culture: No growth 06/03/2020 urine culture: No growth 06/09/2020 tracheal aspirate Klebsiella pneumoniae 06/28/2020 sputum culture positive for Klebsiella 06/28/2020 blood cultures no growth today 06/29/2020 SARS COV2 PCR positive A/P: 64-year-old female with hypertension, diastolic CHF, pulmonary hypertension, diabetes, obesity hypoventilation syndrome, recent COVID pneumonia, was admitted to the emergency room after she called EMS due to difficulty breathing. On the way to the hospital, patient developed cardiac arrest and was treated as per ACLS protocol: #Cardiac arrest on 07/01/2020. #Sepsis on 06/27/2020: Resolved. After asystolic cardiac arrest on 06/26/2028. #Bilateral pneumonia: Secondary to COVID-19. Completed 5 days of IV Remdesivir 06/02/2020, completed steroids. ?Healthcare associated pneumonia, repeat sputum Klebsiella. Chest x-ray worsening infiltrates. Completed abx. #Acute hypoxic respiratory failure: On mechanical ventilation. Minimal vent settings. #HF: EF 45-50% #Mild LFT elevation: likely from COVID-19. #Severe constipation: Status post manual disimpaction. #Encephalopathy: ? Post cardiac arrest. Recs: - continue supportive care, awaits trach/PEG - no fever, procal and WBC not elevated, no abx for now Mallory Wright MD, FACP [facility], [place], [facility] ([facility]) C: [phone] O: [phone] F: [phone] Subjective Date of service: 07/14/20 Principal diagnosis: Ac hypoxemic resp failure; COVID-19; pneumonia; CHF; Pulm HTN; OHS; DM II Interval history: Remains intubated, on the vent, minimal settings. No fever. Planning trach/PEG Objective - Exam Narrative Exam: Physical Exam (reviewed in chart due to PPE conservation) Constitutional: intubated, sedated, on the vent Head, Ears, Nose: normocephalic, atraumatic Eyes: limited due to PPE conservation strategy Neck: intubated Oral: intubated Cardiovascular: limited due to PPE conservation strategy Respiratory: limited due to PPE conservation strategy GI: limited due to PPE conservation strategy Musculoskeletal: limited due to PPE conservation strategy Skin: limited due to PPE conservation strategy Hem/Lymphatic: limited due to PPE conservation strategy Psych: no agitation Neurological: sedated, intubated, on the vent, exam limited - Constitutional Vitals: Vital Signs Temp Pulse Resp BP Pulse Ox 98.5 F 77 16 162/69 97 07/14/20 08:00 07/14/20 12:00 07/14/20 12:00 07/14/20 12:00 07/14/20 12:00 Temperature -Last 24 Hours Temperature 98.5 F Temperature 97.8 F Temperature 98.0 F Temperature 99.1 F Temperature 98.5 F - Labs CBC & Chem 7: 07/13/20 04:53 07/13/20 04:53 Labs: Abnormal lab results 07/13/20 07/14/20 07/14/20 Range/Units 18:27 00:22 05:43 POC Glucose 149 H 157 H 169 H (70-105)
--- NOTE | 2020-07-14 14:17 | Progress Note ---
Assessment and Plan Cardiopulmoanry arrest 06/26/2020 with ROSC Acute hypoxemic respiratory failure , extubated now re-intubated Anemia s/p PRBC Severe COVID infection Multifocal pneumonia Morbid obesity Acute toxic metabolic encephalopathy AVANI secondary to COVID/vasomotor nephropathy Bilateral pulmonary edema. Bilateral pleural effusions. History of congestive heart failure. History of pulmonary hypertension. History of hypertension. Diabetes. Obesity hypoventilation syndrome. Oropharyngeal dysphagia. Trend temperature curve and WCC Daily SBTs as tolerated, her mental staus precludes liberation from MVS Trach and PEG , General surgery consult- plan for later this week if COVID negative Discontinue Helm catheter Continue to avoid nephrotoxins, closely monitor renal function, dose all medications for renal function Supportive transfusions as indicated - VAP bundle addressed -Aspiration precautions, HOB >40 -lung protective strategies-ARDS. net - continue bronchodilators with pulmonary hygiene per RT - wean per pulmonary driven protocols otherwise - continue to avoid benzodiazepines, reduce the possibility of delirium - prn analgesia per CPOT score - Continue to wean supplemental oxygen for target O2 sats > 92% -Continue to hold sedation, if needed intermittent dosing - conservative fluid management measures as tolerated by hemodynamics and renal function - Bronchodilators with pulmonary hygiene per RT - Accuchecks with glycemic control per SSI (While critically ill target blood glucose of 140-180 mg/dL; avoid hypoglycemia) - Maintenance of sleep-wake cycle, avoid delirium - Aspiration precautions, HOB >40 - Stress ulcer prophylaxis -Famotidine - Mobility protocol, off loading and skin assessment for pressure ulcer prevention - Supportive transfusions as indicated to keep HgB >7g/dL COVID SPECIFIC INTERVENTIONS -Airborne, contact isolation for COVID per facility protocols - s/p Remdesivir -IV steroids-Dexamethasone -Trend d-dimer,and other inflammatory markers per facility protocol -Convalescent plasma therapy per facility protocol -Continue all supportive care Discussed with the ICU team-RT,RN, Clinical Pharmacist, Case management Life threatening condition- Cardiopulmonary arrest with ROSC, Sepsis ;COVID 19 acute hypoxemic respiratory failure on MVS Mortality/Morbidity- High Complexity of medical decision making- High CONDITION: CRITICAL PROGNOSIS: GUARDED CODE STATUS: FULL CODE The high probability of a clinically significant, sudden or life-threatening deterioration of the [respiratory & neurology, renal ] system(s) required my full and direct attention, intervention and personal management. The aggregate critical care time was [32] minutes without overlap. Time includes spent on; [x] Data Review and interpretation [x] Patient assessment and monitoring of vital signs [x] Documentation [x] Medication orders and management Subjective Date of service: 07/14/20 Principal diagnosis: Ac hypoxemic resp failure; COVID-19; pneumonia; CHF; Pulm HTN; OHS; DM II Interval history: Patient is seen today for: Ac hypoxemic resp failure s/p Cardiopulmonary arrest with ROSC; Coronavirus-19 infection; pneumonia; Pulmonary edema; Bilateral pleural effusions; CHF; Morbid obesity; pulmonary hypertension; OHS; DM II Seen and examined at bedside; 24hour events reviewed; nursing and respiratory care staff consulted; Vitals, labs,medications, chart reviewed. Remains on MVS, no fevers, Tolerating PS trials 10/+5 with full support at night Mental status changes persist, but grimaces to pain and will open her eyes with sternal rub Tolerating tube feedings, No adverse overnight events Objective Vital Signs - 12hr 07/14/20 07/14/20 07/14/20 02:30 02:46 03:00 Temperature Pulse Rate 79 78 74 Pulse Rate [ From Monitor] Respiratory 15 14 Rate Respiratory Rate [Left Upper Hand] Blood Pressure 182/90 185/83 185/83 O2 Sat by Pulse 99 99 Oximetry 07/14/20 07/14/20 07/14/20 03:30 04:00 04:21 Temperature 97.8 F Pulse Rate 77 77 Pulse Rate [ 78 From Monitor] Respiratory 17 16 14 Rate Respiratory Rate [Left Upper Hand] Blood Pressure 185/85 188/82 O2 Sat by Pulse 99 99 Oximetry 07/14/20 07/14/20 07/14/20 04:30 05:00 05:30 Temperature Pulse Rate 78 79 78 Pulse Rate [ From Monitor] Respiratory 10 L 18 14 Rate Respiratory Rate [Left Upper Hand] Blood Pressure 193/97 190/84 181/80 O2 Sat by Pulse 99 98 99 Oximetry 07/14/20 07/14/20 07/14/20 06:00 06:30 06:33 Temperature Pulse Rate 79 81 85 Pulse Rate [ From Monitor] Respiratory 16 17 Rate Respiratory Rate [Left Upper Hand] Blood Pressure 190/85 185/82 185/85 O2 Sat by Pulse 99 98 Oximetry 07/14/20 07/14/20 07/14/20 07:00 07:30 07:56 Temperature Pulse Rate 80 82 82 Pulse Rate [ From Monitor] Respiratory 16 19 Rate Respiratory Rate [Left Upper Hand] Blood Pressure 191/81 183/79 183/79 O2 Sat by Pulse 99 99 99 Oximetry 07/14/20 07/14/20 07/14/20 07:59 08:00 08:30 Temperature 98.5 F Pulse Rate 82 80 81 Pulse Rate [ 80 From Monitor] Respiratory 18 15 15 Rate Respiratory Rate [Left Upper Hand] Blood Pressure 183/79 187/85 191/79 O2 Sat by Pulse 99 99 99 Oximetry 07/14/20 07/14/20 07/14/20 08:44 09:00 09:07 Temperature Pulse Rate 80 80 80 Pulse Rate [ From Monitor] Respiratory 26 H Rate Respiratory Rate [Left Upper Hand] Blood Pressure 191/79 167/72 167/72 O2 Sat by Pulse 94 Oximetry 07/14/20 07/14/20 07/14/20 09:08 09:30 10:00 Temperature Pulse Rate 80 78 79 Pulse Rate [ From Monitor] Respiratory 21 20 Rate Respiratory 16 Rate [Left Upper Hand] Blood Pressure 167/72 167/72 161/71 O2 Sat by Pulse 97 96 Oximetry 07/14/20 07/14/20 07/14/20 10:30 11:00 11:30 Temperature Pulse Rate 81 78 80 Pulse Rate [ From Monitor] Respiratory 19 17 18 Rate Respiratory Rate [Left Upper Hand] Blood Pressure 161/71 159/69 160/74 O2 Sat by Pulse 94 97 97 Oximetry 07/14/20 07/14/20 07/14/20 11:33 12:00 12:30 Temperature 98.3 F Pulse Rate 79 77 77 Pulse Rate [ 79 From Monitor] Respiratory 19 16 20 Rate Respiratory Rate [Left Upper Hand] Blood Pressure 160/74 162/69 157/73 O2 Sat by Pulse 97 97 96 Oximetry 07/14/20 07/14/20 07/14/20 13:00 13:30 14:00 Temperature Pulse Rate 78 77 69 Pulse Rate [ From Monitor] Respiratory 23 14 13 Rate Respiratory Rate [Left Upper Hand] Blood Pressure 157/73 161/64 143/60 O2 Sat by Pulse 96 98 98 Oximetry Constitutional: no acute distress, other (elderly looking obese female on HFNC with mildly increased respiratory effort at rest on MVS) Eyes: non-icteric ENT: oropharynx dry, other (ETT 23-24 cm AYAN) Neck: supple, no lymphadenopathy, no JVD, other (large neck circumference) Effort: mildly labored Ascultation: Bilateral: clear, diminished breath sounds, rales, rhonchi (scant) Percussion: Bilateral: not dull Cardiovascular: regular rate and rhythm, other (S1,S2) Gastrointestinal: normoactive bowel sounds, soft, non-tender, non-distended Integumentary: normal Extremities: no cyanosis, no edema, pink and warm, pulses normal, no ischemia or petechiae Neurologic: pupils equal and round, unable to assess, other (minimally responsive) Psychiatric: other (unable to assess re: AMS) CBC and BMP: 07/13/20 04:53 07/13/20 04:53 ABG, PT/INR, D-dimer: ABG ABG pH 7.32 pH Units (7.350-7.450) L 07/05/20 13:05 POC ABG pCO2 35.8 mmHg (32.0-48.0) 07/01/20 05:02 ABG pCO2 47.0 mm Hg 07/05/20 13:05 POC ABG pO2 90.8 mmHg (83-108) 07/01/20 05:02 ABG pO2 78.3 mm Hg (80.0-90.0) L 07/05/20 13:05 POC ABG HCO3 22.1 07/01/20 05:02 ABG O2 Saturation 96.1 % (95.0-99.0) 07/05/20 13:05 PT/INR, D-dimer PT 14.2 Sec. (12.2-14.9) 05/29/20 15:10 INR 1.08 (0.87-1.13) 05/29/20 15:10 D-Dimer 2310.15 ng/mlDDU (0-234) H 06/29/20 14:45 Abnormal lab findings: Abnormal Labs 05/28/20 05/28/20 05/28/20 13:29 13:47 13:47 WBC RBC Hgb Hct MCHC RDW 15.3 H Lymph % (Auto) [place] % (Auto) Eos % (Auto) Lymph # [place] # Lymph # (Auto) [place] # (Auto) Seg Neutrophils % Seg Neuts % (Manual) Lymphocytes % (Manual) Seg Neutrophils # Seg Neutrophils # Man Lymphocytes # (Manual) Monocytes % (Manual) Eosinophils % (Manual) Monocytes # (Manual) Eosinophils # (Manual) D-Dimer Heparin Anti-Xa Level ABG pH POC ABG pCO2 POC ABG pO2 ABG pO2 ABG HCO3 ABG O2 Saturation ABG Base Excess ABG Hemoglobin ABG Oxyhemoglobin VBG pH Oxyhemoglobin Sodium Potassium 6.6 H* Chloride 109.2 H Carbon Dioxide 17 L BUN 29 H Creatinine 1.3 H Glucose 265 H POC Glucose 248 H Lactic Acid Calcium 8.1 L Ferritin AST 63 H Alkaline Phosphatase Magnesium Lactate Dehydrogenase Total Creatine Kinase 301 H CK-MB (CK-2) 4.3 H C-Reactive Protein Total Protein 5.4 L Albumin 2.6 L Troponin T HDL Cholesterol Urine WBC (Auto) Urine Creatinine Urine Total Protein Coronavirus (PCR) Crossmatch 05/28/20 05/28/20 05/28/20 13:47 13:47 14:46 WBC RBC Hgb Hct MCHC RDW Lymph % (Auto) [place] % (Auto) Eos % (Auto) Lymph # [place] # Lymph # (Auto) [place] # (Auto) Seg Neutrophils % Seg Neuts % (Manual) Lymphocytes % (Manual) Seg Neutrophils # Seg Neutrophils # Man Lymphocytes # (Manual) Monocytes % (Manual) Eosinophils % (Manual) Monocytes # (Manual) Eosinophils # (Manual) D-Dimer Heparin Anti-Xa Level ABG pH POC ABG pCO2 POC ABG pO2 ABG pO2 ABG HCO3 ABG O2 Saturation ABG Base Excess ABG Hemoglobin ABG Oxyhemoglobin VBG pH 7.152 L* Oxyhemoglobin Sodium Potassium 7.2 H* Chloride Carbon Dioxide BUN Creatinine Glucose POC Glucose Lactic Acid 3.40 H* Calcium Ferritin AST Alkaline Phosphatase Magnesium Lactate Dehydrogenase Total Creatine Kinase CK-MB (CK-2) C-Reactive Protein Total Protein Albumin Troponin T HDL Cholesterol Urine WBC (Auto) Urine Creatinine Urine Total Protein Coronavirus (PCR) Crossmatch 05/28/20 05/28/20 05/28/20 15:33 15:33 15:51 WBC RBC Hgb Hct MCHC RDW Lymph % (Auto) [place] % (Auto) Eos % (Auto) Lymph # [place] # Lymph # (Auto) [place] # (Auto) Seg Neutrophils % Seg Neuts % (Manual) Lymphocytes % (Manual) Seg Neutrophils # Seg Neutrophils # Man Lymphocytes # (Manual) Monocytes % (Manual) Eosinophils % (Manual) Monocytes # (Manual) Eosinophils # (Manual) D-Dimer 8780.43 H Heparin Anti-Xa Level ABG pH 7.284 L POC ABG pCO2 POC ABG pO2 ABG pO2 273.0 H ABG HCO3 ABG O2 Saturation 99.4 H ABG Base Excess -6.1 L ABG Hemoglobin 17.2 H ABG Oxyhemoglobin VBG pH Oxyhemoglobin Sodium Potassium Chloride Carbon Dioxide BUN Creatinine Glucose 152 H POC Glucose Lactic Acid Calcium Ferritin AST Alkaline Phosphatase Magnesium Lactate Dehydrogenase 365 H Total Creatine Kinase CK-MB (CK-2) C-Reactive Protein Total Protein Albumin Troponin T HDL Cholesterol Urine WBC (Auto) Urine Creatinine Urine Total Protein Coronavirus (PCR) Crossmatch 05/28/20 05/28/20 05/28/20 16:30 20:41 23:20 WBC RBC Hgb Hct MCHC RDW Lymph % (Auto) [place] % (Auto) Eos % (Auto) Lymph # [place] # Lymph # (Auto) [place] # (Auto) Seg Neutrophils % Seg Neuts % (Manual) Lymphocytes % (Manual) Seg Neutrophils # Seg Neutrophils # Man Lymphocytes # (Manual) Monocytes % (Manual) Eosinophils % (Manual) Monocytes # (Manual) Eosinophils # (Manual) D-Dimer Heparin Anti-Xa Level ABG pH POC ABG pCO2 POC ABG pO2 ABG pO2 ABG HCO3 ABG O2 Saturation ABG Base Excess ABG Hemoglobin ABG Oxyhemoglobin VBG pH Oxyhemoglobin Sodium Potassium Chloride Carbon Dioxide BUN Creatinine Glucose POC Glucose 225 H 224 H Lactic Acid Calcium Ferritin AST Alkaline Phosphatase Magnesium Lactate Dehydrogenase Total Creatine Kinase CK-MB (CK-2) C-Reactive Protein Total Protein Albumin Troponin T HDL Cholesterol Urine WBC (Auto) 17.0 H Urine Creatinine Urine Total Protein Coronavirus (PCR) Crossmatch 05/28/20 05/29/20 05/29/20 Unknown 04:35 04:43 WBC RBC 3.48 L Hgb 9.8 L Hct 29.4 L MCHC RDW 16.0 H Lymph % (Auto) 7.4 L [place] % (Auto) Eos % (Auto) Lymph # 0.7 L [place] # Lymph # (Auto) [place] # (Auto) Seg Neutrophils % 89.1 H Seg Neuts % (Manual) Lymphocytes % (Manual) Seg Neutrophils # 8.1 H Seg Neutrophils # Man Lymphocytes # (Manual) Monocytes % (Manual) Eosinophils % (Manual) Monocytes # (Manual) Eosinophils # (Manual) D-Dimer Heparin Anti-Xa Level ABG pH POC ABG pCO2 POC ABG pO2 ABG pO2 ABG HCO3 19.3 L ABG O2 Saturation ABG Base Excess -4.5 L ABG Hemoglobin 9.7 L ABG Oxyhemoglobin VBG pH Oxyhemoglobin Sodium Potassium Chloride Carbon Dioxide BUN Creatinine Glucose POC Glucose Lactic Acid Calcium Ferritin AST Alkaline Phosphatase Magnesium Lactate Dehydrogenase Total Creatine Kinase CK-MB (CK-2) C-Reactive Protein Total Protein Albumin Troponin T HDL Cholesterol Urine WBC (Auto) Urine Creatinine Urine Total Protein Coronavirus (PCR) Positive A Crossmatch 05/29/20 05/29/20 05/29/20 04:43 15:10 17:17 WBC RBC Hgb 9.3 L Hct 28.7 L MCHC RDW Lymph % (Auto) [place] % (Auto) Eos % (Auto) Lymph # [place] # Lymph # (Auto) [place] # (Auto) Seg Neutrophils % Seg Neuts % (Manual) Lymphocytes % (Manual) Seg Neutrophils # Seg Neutrophils # Man Lymphocytes # (Manual) Monocytes % (Manual) Eosinophils % (Manual) Monocytes # (Manual) Eosinophils # (Manual) D-Dimer Heparin Anti-Xa Level ABG pH POC ABG pCO2 POC ABG pO2 ABG pO2 ABG HCO3 ABG O2 Saturation ABG Base Excess ABG Hemoglobin ABG Oxyhemoglobin VBG pH Oxyhemoglobin Sodium Potassium Chloride 110.2 H Carbon Dioxide 18 L BUN 32 H Creatinine 1.4 H Glucose 180 H POC Glucose 147 H Lactic Acid Calcium Ferritin AST Alkaline Phosphatase Magnesium Lactate Dehydrogenase Total Creatine Kinase CK-MB (CK-2) C-Reactive Protein Total Protein Albumin Troponin T HDL Cholesterol Urine WBC (Auto) Urine Creatinine Urine Total Protein Coronavirus (PCR) Crossmatch 05/30/20 05/30/20 05/30/20 00:08 00:12 04:15 WBC RBC Hgb Hct MCHC RDW Lymph % (Auto) [place] % (Auto) Eos % (Auto) Lymph # [place] # Lymph # (Auto) [place] # (Auto) Seg Neutrophils % Seg Neuts % (Manual) Lymphocytes % (Manual) Seg Neutrophils # Seg Neutrophils # Man Lymphocytes # (Manual) Monocytes % (Manual) Eosinophils % (Manual) Monocytes # (Manual) Eosinophils # (Manual) D-Dimer Heparin Anti-Xa Level 0.71 H ABG pH 7.460 H POC ABG pCO2 POC ABG pO2 ABG pO2 106.0 H ABG HCO3 18.9 L ABG O2 Saturation ABG Base Excess -4.4 L ABG Hemoglobin 6.8 L ABG Oxyhemoglobin VBG pH Oxyhemoglobin Sodium Potassium Chloride Carbon Dioxide BUN Creatinine Glucose POC Glucose 195 H Lactic Acid Calcium Ferritin AST Alkaline Phosphatase Magnesium Lactate Dehydrogenase Total Creatine Kinase CK-MB (CK-2) C-Reactive Protein Total Protein Albumin Troponin T HDL Cholesterol Urine WBC (Auto) Urine Creatinine Urine Total Protein Coronavirus (PCR) Crossmatch 05/30/20 05/30/20 05/30/20 06:07 08:37 12:33 WBC RBC Hgb Hct MCHC RDW Lymph % (Auto) [place] % (Auto) Eos % (Auto) Lymph # [place] # Lymph # (Auto) [place] # (Auto) Seg Neutrophils % Seg Neuts % (Manual) Lymphocytes % (Manual) Seg Neutrophils # Seg Neutrophils # Man Lymphocytes # (Manual) Monocytes % (Manual) Eosinophils % (Manual) Monocytes # (Manual) Eosinophils # (Manual) D-Dimer Heparin Anti-Xa Level 0.85 H ABG pH POC ABG pCO2 POC ABG pO2 ABG pO2 ABG HCO3 ABG O2 Saturation ABG Base Excess ABG Hemoglobin ABG Oxyhemoglobin VBG pH Oxyhemoglobin Sodium Potassium Chloride Carbon Dioxide BUN Creatinine Glucose POC Glucose 182 H 187 H Lactic Acid Calcium Ferritin AST Alkaline Phosphatase Magnesium Lactate Dehydrogenase Total Creatine Kinase CK-MB (CK-2) C-Reactive Protein Total Protein Albumin Troponin T HDL Cholesterol Urine WBC (Auto) Urine Creatinine Urine Total Protein Coronavirus (PCR) Crossmatch 05/30/20 05/30/20 05/30/20 15:58 17:57 23:36 WBC RBC Hgb Hct MCHC RDW Lymph % (Auto) [place] % (Auto) Eos % (Auto) Lymph # [place] # Lymph # (Auto) [place] # (Auto) Seg Neutrophils % Seg Neuts % (Manual) Lymphocytes % (Manual) Seg Neutrophils # Seg Neutrophils # Man Lymphocytes # (Manual) Monocytes % (Manual) Eosinophils % (Manual) Monocytes # (Manual) Eosinophils # (Manual) D-Dimer Heparin Anti-Xa Level 1.03 H ABG pH POC ABG pCO2 POC ABG pO2 ABG pO2 ABG HCO3 ABG O2 Saturation ABG Base Excess ABG Hemoglobin ABG Oxyhemoglobin VBG pH Oxyhemoglobin Sodium Potassium Chloride Carbon Dioxide BUN Creatinine Glucose POC Glucose 208 H 185 H Lactic Acid Calcium Ferritin AST Alkaline Phosphatase Magnesium Lactate Dehydrogenase Total Creatine Kinase CK-MB (CK-2) C-Reactive Protein Total Protein Albumin Troponin T HDL Cholesterol Urine WBC (Auto) Urine Creatinine Urine Total Protein Coronavirus (PCR) Crossmatch 05/31/20 05/31/20 05/31/20 02:16 03:55 06:16 WBC RBC Hgb 9.2 L Hct 27.5 L MCHC RDW Lymph % (Auto) [place] % (Auto) Eos % (Auto) Lymph # [place] # Lymph # (Auto) [place] # (Auto) Seg Neutrophils % Seg Neuts % (Manual) Lymphocytes % (Manual) Seg Neutrophils # Seg Neutrophils # Man Lymphocytes # (Manual) Monocytes % (Manual) Eosinophils % (Manual) Monocytes # (Manual) Eosinophils # (Manual) D-Dimer Heparin Anti-Xa Level ABG pH POC ABG pCO2 POC ABG pO2 ABG pO2 94.7 H ABG HCO3 18.6 L ABG O2 Saturation ABG Base Excess -5.5 L ABG Hemoglobin 7.9 L ABG Oxyhemoglobin VBG pH Oxyhemoglobin Sodium Potassium Chloride Carbon Dioxide BUN Creatinine Glucose POC Glucose 160 H Lactic Acid Calcium Ferritin AST Alkaline Phosphatase Magnesium Lactate Dehydrogenase Total Creatine Kinase CK-MB (CK-2) C-Reactive Protein Total Protein Albumin Troponin T HDL Cholesterol Urine WBC (Auto) Urine Creatinine Urine Total Protein Coronavirus (PCR) Crossmatch 05/31/20 05/31/20 05/31/20 12:20 13:03 18:13 WBC RBC Hgb Hct MCHC RDW Lymph % (Auto) [place] % (Auto) Eos % (Auto) Lymph # [place] # Lymph # (Auto) [place] # (Auto) Seg Neutrophils % Seg Neuts % (Manual) Lymphocytes % (Manual) Seg Neutrophils # Seg Neutrophils # Man Lymphocytes # (Manual) Monocytes % (Manual) Eosinophils % (Manual) Monocytes # (Manual) Eosinophils # (Manual) D-Dimer Heparin Anti-Xa Level ABG pH POC ABG pCO2 POC ABG pO2 ABG pO2 ABG HCO3 ABG O2 Saturation ABG Base Excess ABG Hemoglobin ABG Oxyhemoglobin VBG pH Oxyhemoglobin Sodium Potassium Chloride Carbon Dioxide 18 L BUN 48 H Creatinine 1.6 H Glucose 115 H POC Glucose 128 H 159 H Lactic Acid Calcium 8.3 L Ferritin AST Alkaline Phosphatase Magnesium Lactate Dehydrogenase Total Creatine Kinase CK-MB (CK-2) C-Reactive Protein Total Protein 5.4 L Albumin 2.4 L Troponin T HDL Cholesterol Urine WBC (Auto) Urine Creatinine Urine Total Protein Coronavirus (PCR) Crossmatch 05/31/20 06/01/20 06/01/20 23:51 04:00 05:48 WBC RBC Hgb Hct MCHC RDW Lymph % (Auto) [place] % (Auto) Eos % (Auto) Lymph # [place] # Lymph # (Auto) [place] # (Auto) Seg Neutrophils % Seg Neuts % (Manual) Lymphocytes % (Manual) Seg Neutrophils # Seg Neutrophils # Man Lymphocytes # (Manual) Monocytes % (Manual) Eosinophils % (Manual) Monocytes # (Manual) Eosinophils # (Manual) D-Dimer Heparin Anti-Xa Level ABG pH POC ABG pCO2 POC ABG pO2 ABG pO2 109.8 H ABG HCO3 18.8 L ABG O2 Saturation ABG Base Excess -5.9 L ABG Hemoglobin 7.8 L ABG Oxyhemoglobin VBG pH Oxyhemoglobin Sodium Potassium Chloride Carbon Dioxide BUN Creatinine Glucose POC Glucose 171 H 133 H Lactic Acid Calcium Ferritin AST Alkaline Phosphatase Magnesium Lactate Dehydrogenase Total Creatine Kinase CK-MB (CK-2) C-Reactive Protein Total Protein Albumin Troponin T HDL Cholesterol Urine WBC (Auto) Urine Creatinine Urine Total Protein Coronavirus (PCR) Crossmatch 06/01/20 06/01/20 06/02/20 12:28 17:29 00:08 WBC RBC Hgb Hct MCHC RDW Lymph % (Auto) [place] % (Auto) Eos % (Auto) Lymph # [place] # Lymph # (Auto) [place] # (Auto) Seg Neutrophils % Seg Neuts % (Manual) Lymphocytes % (Manual) Seg Neutrophils # Seg Neutrophils # Man Lymphocytes # (Manual) Monocytes % (Manual) Eosinophils % (Manual) Monocytes # (Manual) Eosinophils # (Manual) D-Dimer Heparin Anti-Xa Level ABG pH POC ABG pCO2 POC ABG pO2 ABG pO2 ABG HCO3 ABG O2 Saturation ABG Base Excess ABG Hemoglobin ABG Oxyhemoglobin VBG pH Oxyhemoglobin Sodium Potassium Chloride Carbon Dioxide BUN Creatinine Glucose POC Glucose 199 H 209 H 162 H Lactic Acid Calcium Ferritin AST Alkaline Phosphatase Magnesium Lactate Dehydrogenase Total Creatine Kinase CK-MB (CK-2) C-Reactive Protein Total Protein Albumin Troponin T HDL Cholesterol Urine WBC (Auto) Urine Creatinine Urine Total Protein Coronavirus (PCR) Crossmatch 06/02/20 06/02/20 06/02/20 04:20 04:20 04:44 WBC RBC Hgb 10.0 L Hct MCHC RDW Lymph % (Auto) [place] % (Auto) Eos % (Auto) Lymph # [place] # Lymph # (Auto) [place] # (Auto) Seg Neutrophils % Seg Neuts % (Manual) Lymphocytes % (Manual) Seg Neutrophils # Seg Neutrophils # Man Lymphocytes # (Manual) Monocytes % (Manual) Eosinophils % (Manual) Monocytes # (Manual) Eosinophils # (Manual) D-Dimer Heparin Anti-Xa Level 0.10 L ABG pH POC ABG pCO2 POC ABG pO2 ABG pO2 150.6 H ABG HCO3 ABG O2 Saturation ABG Base Excess -4.1 L ABG Hemoglobin 11.8 L ABG Oxyhemoglobin VBG pH Oxyhemoglobin Sodium Potassium Chloride Carbon Dioxide BUN Creatinine Glucose POC Glucose Lactic Acid Calcium Ferritin AST Alkaline Phosphatase Magnesium Lactate Dehydrogenase Total Creatine Kinase CK-MB (CK-2) C-Reactive Protein Total Protein Albumin Troponin T HDL Cholesterol Urine WBC (Auto) Urine Creatinine Urine Total Protein Coronavirus (PCR) Crossmatch 06/02/20 06/02/20 06/02/20 05:53 12:04 13:49 WBC RBC Hgb Hct MCHC RDW Lymph % (Auto) [place] % (Auto) Eos % (Auto) Lymph # [place] # Lymph # (Auto) [place] # (Auto) Seg Neutrophils % Seg Neuts % (Manual) Lymphocytes % (Manual) Seg Neutrophils # Seg Neutrophils # Man Lymphocytes # (Manual) Monocytes % (Manual) Eosinophils % (Manual) Monocytes # (Manual) Eosinophils # (Manual) D-Dimer Heparin Anti-Xa Level 0.28 L ABG pH POC ABG pCO2 POC ABG pO2 ABG pO2 ABG HCO3 ABG O2 Saturation ABG Base Excess ABG Hemoglobin ABG Oxyhemoglobin VBG pH Oxyhemoglobin Sodium Potassium Chloride Carbon Dioxide BUN Creatinine Glucose POC Glucose 149 H 220 H Lactic Acid Calcium Ferritin AST Alkaline Phosphatase Magnesium Lactate Dehydrogenase Total Creatine Kinase CK-MB (CK-2) C-Reactive Protein Total Protein Albumin Troponin T HDL Cholesterol Urine WBC (Auto) Urine Creatinine Urine Total Protein Coronavirus (PCR) Crossmatch 06/02/20 06/02/20 06/03/20 13:49 18:31 00:42 WBC RBC Hgb Hct MCHC RDW Lymph % (Auto) [place] % (Auto) Eos % (Auto) Lymph # [place] # Lymph # (Auto) [place] # (Auto) Seg Neutrophils % Seg Neuts % (Manual) Lymphocytes % (Manual) Seg Neutrophils # Seg Neutrophils # Man Lymphocytes # (Manual) Monocytes % (Manual) Eosinophils % (Manual) Monocytes # (Manual) Eosinophils # (Manual) D-Dimer 769.68 H Heparin Anti-Xa Level ABG pH POC ABG pCO2 POC ABG pO2 ABG pO2 ABG HCO3 ABG O2 Saturation ABG Base Excess ABG Hemoglobin ABG Oxyhemoglobin VBG pH Oxyhemoglobin Sodium Potassium Chloride Carbon Dioxide BUN Creatinine Glucose POC Glucose 225 H 212 H Lactic Acid Calcium Ferritin AST Alkaline Phosphatase Magnesium Lactate Dehydrogenase Total Creatine Kinase CK-MB (CK-2) C-Reactive Protein Total Protein Albumin Troponin T HDL Cholesterol Urine WBC (Auto) Urine Creatinine Urine Total Protein Coronavirus (PCR) Crossmatch 06/03/20 06/03/20 06/03/20 05:16 05:16 05:25 WBC 11.4 H RBC Hgb Hct MCHC RDW 16.4 H Lymph % (Auto) [place] % (Auto) Eos % (Auto) Lymph # [place] # Lymph # (Auto) [place] # (Auto) Seg Neutrophils % Seg Neuts % (Manual) Lymphocytes % (Manual) Seg Neutrophils # Seg Neutrophils # Man Lymphocytes # (Manual) Monocytes % (Manual) Eosinophils % (Manual) Monocytes # (Manual) Eosinophils # (Manual) D-Dimer Heparin Anti-Xa Level ABG pH POC ABG pCO2 POC ABG pO2 ABG pO2 160.9 H ABG HCO3 19.4 L ABG O2 Saturation ABG Base Excess -4.9 L ABG Hemoglobin 7.0 L ABG Oxyhemoglobin VBG pH Oxyhemoglobin Sodium Potassium Chloride Carbon Dioxide 18 L BUN 65 H Creatinine 2.0 H Glucose 175 H POC Glucose Lactic Acid Calcium 8.0 L Ferritin AST Alkaline Phosphatase Magnesium Lactate Dehydrogenase Total Creatine Kinase CK-MB (CK-2) C-Reactive Protein Total Protein 5.5 L Albumin 2.2 L Troponin T HDL Cholesterol Urine WBC (Auto) Urine Creatinine Urine Total Protein Coronavirus (PCR) Crossmatch 06/03/20 06/03/20 06/03/20 06:07 11:58 18:24 WBC RBC Hgb Hct MCHC RDW Lymph % (Auto) [place] % (Auto) Eos % (Auto) Lymph # [place] # Lymph # (Auto) [place] # (Auto) Seg Neutrophils % Seg Neuts % (Manual) Lymphocytes % (Manual) Seg Neutrophils # Seg Neutrophils # Man Lymphocytes # (Manual) Monocytes % (Manual) Eosinophils % (Manual) Monocytes # (Manual) Eosinophils # (Manual) D-Dimer Heparin Anti-Xa Level ABG pH POC ABG pCO2 POC ABG pO2 ABG pO2 ABG HCO3 ABG O2 Saturation ABG Base Excess ABG Hemoglobin ABG Oxyhemoglobin VBG pH Oxyhemoglobin Sodium Potassium Chloride Carbon Dioxide BUN Creatinine Glucose POC Glucose 177 H 163 H 211 H Lactic Acid Calcium Ferritin AST Alkaline Phosphatase Magnesium Lactate Dehydrogenase Total Creatine Kinase CK-MB (CK-2) C-Reactive Protein Total Protein Albumin Troponin T HDL Cholesterol Urine WBC (Auto) Urine Creatinine Urine Total Protein Coronavirus (PCR) Crossmatch 06/03/20 06/03/20 06/04/20 21:50 Unknown 00:26 WBC RBC Hgb Hct MCHC RDW Lymph % (Auto) [place] % (Auto) Eos % (Auto) Lymph # [place] # Lymph # (Auto) [place] # (Auto) Seg Neutrophils % Seg Neuts % (Manual) Lymphocytes % (Manual) Seg Neutrophils # Seg Neutrophils # Man Lymphocytes # (Manual) Monocytes % (Manual) Eosinophils % (Manual) Monocytes # (Manual) Eosinophils # (Manual) D-Dimer Heparin Anti-Xa Level ABG pH POC ABG pCO2 POC ABG pO2 ABG pO2 ABG HCO3 ABG O2 Saturation ABG Base Excess ABG Hemoglobin ABG Oxyhemoglobin VBG pH Oxyhemoglobin Sodium 135 L Potassium Chloride Carbon Dioxide 18 L BUN Creatinine Glucose POC Glucose 241 H Lactic Acid Calcium Ferritin AST Alkaline Phosphatase Magnesium Lactate Dehydrogenase Total Creatine Kinase CK-MB (CK-2) C-Reactive Protein Total Protein Albumin Troponin T HDL Cholesterol Urine WBC (Auto) 11.0 H Urine Creatinine Urine Total Protein Coronavirus (PCR) Crossmatch 06/04/20 06/04/20 06/04/20 03:35 04:19 04:19 WBC RBC 3.15 L Hgb 8.9 L Hct 26.8 L D MCHC RDW 15.9 H Lymph % (Auto) 6.0 L [place] % (Auto) Eos % (Auto) Lymph # 0.6 L [place] # Lymph # (Auto) [place] # (Auto) Seg Neutrophils % 86.6 H Seg Neuts % (Manual) Lymphocytes % (Manual) Seg Neutrophils # 9.1 H Seg Neutrophils # Man Lymphocytes # (Manual) Monocytes % (Manual) Eosinophils % (Manual) Monocytes # (Manual) Eosinophils # (Manual) D-Dimer Heparin Anti-Xa Level ABG pH 7.331 L POC ABG pCO2 POC ABG pO2 ABG pO2 ABG HCO3 ABG O2 Saturation ABG Base Excess -4.7 L ABG Hemoglobin 11.0 L ABG Oxyhemoglobin VBG pH Oxyhemoglobin 93.9 L Sodium 136 L Potassium Chloride Carbon Dioxide 20 L BUN 73 H Creatinine 2.0 H Glucose 192 H POC Glucose Lactic Acid Calcium 8.0 L Ferritin AST Alkaline Phosphatase Magnesium Lactate Dehydrogenase 271 H Total Creatine Kinase CK-MB (CK-2) C-Reactive Protein 2.20 H Total Protein 5.0 L Albumin 2.0 L Troponin T HDL Cholesterol Urine WBC (Auto) Urine Creatinine Urine Total Protein Coronavirus (PCR) Crossmatch 06/04/20 06/04/20 06/04/20 04:19 05:51 11:48 WBC RBC Hgb Hct MCHC RDW Lymph % (Auto) [place] % (Auto) Eos % (Auto) Lymph # [place] # Lymph # (Auto) [place] # (Auto) Seg Neutrophils % Seg Neuts % (Manual) Lymphocytes % (Manual) Seg Neutrophils # Seg Neutrophils # Man Lymphocytes # (Manual) Monocytes % (Manual) Eosinophils % (Manual) Monocytes # (Manual) Eosinophils # (Manual) D-Dimer 414.52 H Heparin Anti-Xa Level ABG pH POC ABG pCO2 POC ABG pO2 ABG pO2 ABG HCO3 ABG O2 Saturation ABG Base Excess ABG Hemoglobin ABG Oxyhemoglobin VBG pH Oxyhemoglobin Sodium Potassium Chloride Carbon Dioxide BUN Creatinine Glucose POC Glucose 179 H 213 H Lactic Acid Calcium Ferritin AST Alkaline Phosphatase Magnesium Lactate Dehydrogenase Total Creatine Kinase CK-MB (CK-2) C-Reactive Protein Total Protein Albumin Troponin T HDL Cholesterol Urine WBC (Auto) Urine Creatinine Urine Total Protein Coronavirus (PCR) Crossmatch 06/04/20 06/05/20 06/05/20 18:25 00:16 05:00 WBC RBC Hgb Hct MCHC RDW Lymph % (Auto) [place] % (Auto) Eos % (Auto) Lymph # [place] # Lymph # (Auto) [place] # (Auto) Seg Neutrophils % Seg Neuts % (Manual) Lymphocytes % (Manual) Seg Neutrophils # Seg Neutrophils # Man Lymphocytes # (Manual) Monocytes % (Manual) Eosinophils % (Manual) Monocytes # (Manual) Eosinophils # (Manual) D-Dimer Heparin Anti-Xa Level ABG pH 7.286 L POC ABG pCO2 POC ABG pO2 ABG pO2 96.2 H ABG HCO3 ABG O2 Saturation ABG Base Excess -6.3 L ABG Hemoglobin 8.8 L ABG Oxyhemoglobin VBG pH Oxyhemoglobin 94.8 L Sodium Potassium Chloride Carbon Dioxide BUN Creatinine Glucose POC Glucose 238 H 183 H Lactic Acid Calcium Ferritin AST Alkaline Phosphatase Magnesium Lactate Dehydrogenase Total Creatine Kinase CK-MB (CK-2) C-Reactive Protein Total Protein Albumin Troponin T HDL Cholesterol Urine WBC (Auto) Urine Creatinine Urine Total Protein Coronavirus (PCR) Crossmatch 06/05/20 06/05/20 06/05/20 05:39 07:25 07:25 WBC RBC 2.97 L Hgb 8.7 L Hct 25.7 L MCHC RDW 16.0 H Lymph % (Auto) 8.8 L [place] % (Auto) 13.3 H Eos % (Auto) Lymph # 0.8 L [place] # 1.3 H Lymph # (Auto) [place] # (Auto) Seg Neutrophils % 77.3 H Seg Neuts % (Manual) Lymphocytes % (Manual) Seg Neutrophils # Seg Neutrophils # Man Lymphocytes # (Manual) Monocytes % (Manual) Eosinophils % (Manual) Monocytes # (Manual) Eosinophils # (Manual) D-Dimer Heparin Anti-Xa Level ABG pH POC ABG pCO2 POC ABG pO2 ABG pO2 ABG HCO3 ABG O2 Saturation ABG Base Excess ABG Hemoglobin ABG Oxyhemoglobin VBG pH Oxyhemoglobin Sodium 133 L Potassium Chloride Carbon Dioxide 17 L BUN 89 H Creatinine 2.8 H Glucose 176 H POC Glucose 149 H Lactic Acid Calcium 7.7 L Ferritin AST Alkaline Phosphatase Magnesium Lactate Dehydrogenase Total Creatine Kinase CK-MB (CK-2) C-Reactive Protein Total Protein 4.2 L Albumin 1.9 L Troponin T HDL Cholesterol Urine WBC (Auto) Urine Creatinine Urine Total Protein Coronavirus (PCR) Crossmatch 06/05/20 06/05/20 06/05/20 07:25 12:05 15:41 WBC RBC Hgb Hct MCHC RDW Lymph % (Auto) [place] % (Auto) Eos % (Auto) Lymph # [place] # Lymph # (Auto) [place] # (Auto) Seg Neutrophils % Seg Neuts % (Manual) Lymphocytes % (Manual) Seg Neutrophils # Seg Neutrophils # Man Lymphocytes # (Manual) Monocytes % (Manual) Eosinophils % (Manual) Monocytes # (Manual) Eosinophils # (Manual) D-Dimer Heparin Anti-Xa Level 0.76 H 0.81 H ABG pH POC ABG pCO2 POC ABG pO2 ABG pO2 ABG HCO3 ABG O2 Saturation ABG Base Excess ABG Hemoglobin ABG Oxyhemoglobin VBG pH Oxyhemoglobin Sodium Potassium Chloride Carbon Dioxide BUN Creatinine Glucose POC Glucose 198 H Lactic Acid Calcium Ferritin AST Alkaline Phosphatase Magnesium Lactate Dehydrogenase Total Creatine Kinase CK-MB (CK-2) C-Reactive Protein Total Protein Albumin Troponin T HDL Cholesterol Urine WBC (Auto) Urine Creatinine Urine Total Protein Coronavirus (PCR) Crossmatch 06/05/20 06/05/20 06/06/20 18:08 23:25 04:00 WBC RBC Hgb Hct MCHC RDW Lymph % (Auto) [place] % (Auto) Eos % (Auto) Lymph # [place] # Lymph # (Auto) [place] # (Auto) Seg Neutrophils % Seg Neuts % (Manual) Lymphocytes % (Manual) Seg Neutrophils # Seg Neutrophils # Man Lymphocytes # (Manual) Monocytes % (Manual) Eosinophils % (Manual) Monocytes # (Manual) Eosinophils # (Manual) D-Dimer Heparin Anti-Xa Level ABG pH POC ABG pCO2 POC ABG pO2 ABG pO2 ABG HCO3 ABG O2 Saturation ABG Base Excess ABG Hemoglobin ABG Oxyhemoglobin VBG pH Oxyhemoglobin Sodium Potassium Chloride Carbon Dioxide BUN Creatinine Glucose POC Glucose 223 H 169 H Lactic Acid Calcium Ferritin AST Alkaline Phosphatase Magnesium Lactate Dehydrogenase Total Creatine Kinase CK-MB (CK-2) C-Reactive Protein Total Protein Albumin Troponin T HDL Cholesterol Urine WBC (Auto) 15.0 H Urine Creatinine Urine Total Protein Coronavirus (PCR) Crossmatch 06/06/20 06/06/20 06/06/20 04:00 05:33 05:38 WBC RBC 2.97 L Hgb 8.7 L Hct 26.8 L MCHC RDW 16.8 H Lymph % (Auto) [place] % (Auto) Eos % (Auto) Lymph # [place] # Lymph # (Auto) [place] # (Auto) Seg Neutrophils % Seg Neuts % (Manual) Lymphocytes % (Manual) Seg Neutrophils # Seg Neutrophils # Man Lymphocytes # (Manual) Monocytes % (Manual) Eosinophils % (Manual) Monocytes # (Manual) Eosinophils # (Manual) D-Dimer Heparin Anti-Xa Level ABG pH POC ABG pCO2 POC ABG pO2 ABG pO2 ABG HCO3 ABG O2 Saturation ABG Base Excess ABG Hemoglobin ABG Oxyhemoglobin VBG pH Oxyhemoglobin Sodium Potassium Chloride Carbon Dioxide BUN Creatinine Glucose POC Glucose 186 H Lactic Acid Calcium Ferritin AST Alkaline Phosphatase Magnesium Lactate Dehydrogenase Total Creatine Kinase CK-MB (CK-2) C-Reactive Protein Total Protein Albumin Troponin T HDL Cholesterol Urine WBC (Auto) Urine Creatinine 82.2 H Urine Total Protein 196 H Coronavirus (PCR) Crossmatch 06/06/20 06/06/20 06/06/20 05:38 12:25 17:03 WBC RBC Hgb Hct MCHC RDW Lymph % (Auto) [place] % (Auto) Eos % (Auto) Lymph # [place] # Lymph # (Auto) [place] # (Auto) Seg Neutrophils % Seg Neuts % (Manual) Lymphocytes % (Manual) Seg Neutrophils # Seg Neutrophils # Man Lymphocytes # (Manual) Monocytes % (Manual) Eosinophils % (Manual) Monocytes # (Manual) Eosinophils # (Manual) D-Dimer Heparin Anti-Xa Level ABG pH POC ABG pCO2 POC ABG pO2 ABG pO2 ABG HCO3 ABG O2 Saturation ABG Base Excess ABG Hemoglobin ABG Oxyhemoglobin VBG pH Oxyhemoglobin Sodium 134 L Potassium 5.2 H Chloride Carbon Dioxide 18 L BUN 97 H Creatinine 2.5 H Glucose 193 H POC Glucose 239 H 252 H Lactic Acid Calcium 7.5 L Ferritin AST Alkaline Phosphatase Magnesium Lactate Dehydrogenase Total Creatine Kinase CK-MB (CK-2) C-Reactive Protein Total Protein 4.1 L Albumin 1.9 L Troponin T HDL Cholesterol Urine WBC (Auto) Urine Creatinine Urine Total Protein Coronavirus (PCR) Crossmatch 06/07/20 06/07/20 06/07/20 00:16 01:49 04:00 WBC RBC 2.91 L Hgb 8.4 L Hct 25.0 L MCHC RDW 16.1 H Lymph % (Auto) 5.7 L [place] % (Auto) 10.5 H Eos % (Auto) Lymph # 0.6 L [place] # 1.1 H Lymph # (Auto) [place] # (Auto) Seg Neutrophils % 83.6 H Seg Neuts % (Manual) Lymphocytes % (Manual) Seg Neutrophils # 9.1 H Seg Neutrophils # Man Lymphocytes # (Manual) Monocytes % (Manual) Eosinophils % (Manual) Monocytes # (Manual) Eosinophils # (Manual) D-Dimer Heparin Anti-Xa Level 0.26 L ABG pH POC ABG pCO2 POC ABG pO2 ABG pO2 ABG HCO3 ABG O2 Saturation ABG Base Excess ABG Hemoglobin ABG Oxyhemoglobin VBG pH Oxyhemoglobin Sodium Potassium Chloride Carbon Dioxide BUN Creatinine Glucose POC Glucose 173 H Lactic Acid Calcium Ferritin AST Alkaline Phosphatase Magnesium Lactate Dehydrogenase Total Creatine Kinase CK-MB (CK-2) C-Reactive Protein Total Protein Albumin Troponin T HDL Cholesterol Urine WBC (Auto) Urine Creatinine Urine Total Protein Coronavirus (PCR) Crossmatch 06/07/20 06/07/20 06/07/20 04:00 04:54 05:51 WBC RBC Hgb Hct MCHC RDW Lymph % (Auto) [place] % (Auto) Eos % (Auto) Lymph # [place] # Lymph # (Auto) [place] # (Auto) Seg Neutrophils % Seg Neuts % (Manual) Lymphocytes % (Manual) Seg Neutrophils # Seg Neutrophils # Man Lymphocytes # (Manual) Monocytes % (Manual) Eosinophils % (Manual) Monocytes # (Manual) Eosinophils # (Manual) D-Dimer Heparin Anti-Xa Level ABG pH 7.317 L POC ABG pCO2 POC ABG pO2 ABG pO2 71.4 L ABG HCO3 ABG O2 Saturation 94.3 L ABG Base Excess -4.8 L ABG Hemoglobin 7.1 L ABG Oxyhemoglobin VBG pH Oxyhemoglobin 92.2 L Sodium 133 L Potassium Chloride Carbon Dioxide 18 L BUN 100 H Creatinine 2.5 H Glucose 158 H POC Glucose 168 H Lactic Acid Calcium 7.6 L Ferritin AST Alkaline Phosphatase Magnesium Lactate Dehydrogenase Total Creatine Kinase CK-MB (CK-2) C-Reactive Protein Total Protein 4.7 L Albumin 2.0 L Troponin T HDL Cholesterol Urine WBC (Auto) Urine Creatinine Urine Total Protein Coronavirus (PCR) Crossmatch 06/07/20 06/07/20 06/07/20 12:03 17:17 20:10 WBC RBC Hgb Hct MCHC RDW Lymph % (Auto) [place] % (Auto) Eos % (Auto) Lymph # [place] # Lymph # (Auto) [place] # (Auto) Seg Neutrophils % Seg Neuts % (Manual) Lymphocytes % (Manual) Seg Neutrophils # Seg Neutrophils # Man Lymphocytes # (Manual) Monocytes % (Manual) Eosinophils % (Manual) Monocytes # (Manual) Eosinophils # (Manual) D-Dimer Heparin Anti-Xa Level 0.17 L ABG pH POC ABG pCO2 POC ABG pO2 ABG pO2 ABG HCO3 ABG O2 Saturation ABG Base Excess ABG Hemoglobin ABG Oxyhemoglobin VBG pH Oxyhemoglobin Sodium Potassium Chloride Carbon Dioxide BUN Creatinine Glucose POC Glucose 276 H 281 H Lactic Acid Calcium Ferritin AST Alkaline Phosphatase Magnesium Lactate Dehydrogenase Total Creatine Kinase CK-MB (CK-2) C-Reactive Protein Total Protein Albumin Troponin T HDL Cholesterol Urine WBC (Auto) Urine Creatinine Urine Total Protein Coronavirus (PCR) Crossmatch 06/08/20 06/08/20 06/08/20 00:02 04:47 04:47 WBC 16.4 H RBC 3.07 L Hgb 8.6 L Hct 26.5 L MCHC RDW 16.3 H Lymph % (Auto) [place] % (Auto) Eos % (Auto) Lymph # [place] # Lymph # (Auto) [place] # (Auto) Seg Neutrophils % Seg Neuts % (Manual) 90.0 H Lymphocytes % (Manual) 3.0 L Seg Neutrophils # Seg Neutrophils # Man 14.8 H Lymphocytes # (Manual) 0.5 L Monocytes % (Manual) Eosinophils % (Manual) Monocytes # (Manual) 1.1 H Eosinophils # (Manual) D-Dimer Heparin Anti-Xa Level ABG pH POC ABG pCO2 POC ABG pO2 ABG pO2 ABG HCO3 ABG O2 Saturation ABG Base Excess ABG Hemoglobin ABG Oxyhemoglobin VBG pH Oxyhemoglobin Sodium 129 L Potassium Chloride 95.6 L Carbon Dioxide 17 L BUN 106 H Creatinine 2.5 H Glucose 213 H POC Glucose 242 H Lactic Acid Calcium 7.6 L Ferritin AST Alkaline Phosphatase Magnesium Lactate Dehydrogenase Total Creatine Kinase CK-MB (CK-2) C-Reactive Protein Total Protein 5.0 L Albumin 2.1 L Troponin T HDL Cholesterol Urine WBC (Auto) Urine Creatinine Urine Total Protein Coronavirus (PCR) Crossmatch 06/08/20 06/08/20 06/08/20 05:40 11:55 17:54 WBC RBC Hgb Hct MCHC RDW Lymph % (Auto) [place] % (Auto) Eos % (Auto) Lymph # [place] # Lymph # (Auto) [place] # (Auto) Seg Neutrophils % Seg Neuts % (Manual) Lymphocytes % (Manual) Seg Neutrophils # Seg Neutrophils # Man Lymphocytes # (Manual) Monocytes % (Manual) Eosinophils % (Manual) Monocytes # (Manual) Eosinophils # (Manual) D-Dimer Heparin Anti-Xa Level ABG pH POC ABG pCO2 POC ABG pO2 ABG pO2 ABG HCO3 ABG O2 Saturation ABG Base Excess ABG Hemoglobin ABG Oxyhemoglobin VBG pH Oxyhemoglobin Sodium Potassium Chloride Carbon Dioxide BUN Creatinine Glucose POC Glucose 221 H 218 H 163 H Lactic Acid Calcium Ferritin AST Alkaline Phosphatase Magnesium Lactate Dehydrogenase Total Creatine Kinase CK-MB (CK-2) C-Reactive Protein Total Protein Albumin Troponin T HDL Cholesterol Urine WBC (Auto) Urine Creatinine Urine Total Protein Coronavirus (PCR) Crossmatch 06/08/20 06/09/20 06/09/20 22:01 00:09 05:16 WBC 19.0 H RBC 3.35 L Hgb 9.2 L Hct 28.5 L MCHC RDW 16.3 H Lymph % (Auto) [place] % (Auto) Eos % (Auto) Lymph # [place] # Lymph # (Auto) [place] # (Auto) Seg Neutrophils % Seg Neuts % (Manual) 85.0 H Lymphocytes % (Manual) 7.0 L Seg Neutrophils # Seg Neutrophils # Man 16.2 H Lymphocytes # (Manual) Monocytes % (Manual) Eosinophils % (Manual) Monocytes # (Manual) 1.3 H Eosinophils # (Manual) D-Dimer Heparin Anti-Xa Level ABG pH POC ABG pCO2 POC ABG pO2 ABG pO2 ABG HCO3 ABG O2 Saturation ABG Base Excess ABG Hemoglobin ABG Oxyhemoglobin VBG pH Oxyhemoglobin Sodium Potassium Chloride Carbon Dioxide BUN Creatinine Glucose POC Glucose 182 H 150 H Lactic Acid Calcium Ferritin AST Alkaline Phosphatase Magnesium Lactate Dehydrogenase Total Creatine Kinase CK-MB (CK-2) C-Reactive Protein Total Protein Albumin Troponin T HDL Cholesterol Urine WBC (Auto) Urine Creatinine Urine Total Protein Coronavirus (PCR) Crossmatch 06/09/20 06/09/20 06/09/20 05:16 05:24 11:29 WBC RBC Hgb Hct MCHC RDW Lymph % (Auto) [place] % (Auto) Eos % (Auto) Lymph # [place] # Lymph # (Auto) [place] # (Auto) Seg Neutrophils % Seg Neuts % (Manual) Lymphocytes % (Manual) Seg Neutrophils # Seg Neutrophils # Man Lymphocytes # (Manual) Monocytes % (Manual) Eosinophils % (Manual) Monocytes # (Manual) Eosinophils # (Manual) D-Dimer Heparin Anti-Xa Level ABG pH POC ABG pCO2 POC ABG pO2 ABG pO2 ABG HCO3 ABG O2 Saturation ABG Base Excess ABG Hemoglobin ABG Oxyhemoglobin VBG pH Oxyhemoglobin Sodium 133 L Potassium Chloride Carbon Dioxide 19 L BUN 109 H Creatinine 2.1 H Glucose 133 H POC Glucose 128 H 119 H Lactic Acid Calcium 7.7 L Ferritin AST Alkaline Phosphatase < 5 L Magnesium Lactate Dehydrogenase Total Creatine Kinase CK-MB (CK-2) C-Reactive Protein Total Protein 4.6 L Albumin < 0.2 L Troponin T HDL Cholesterol Urine WBC (Auto) Urine Creatinine Urine Total Protein Coronavirus (PCR) Crossmatch 06/09/20 06/10/20 06/10/20 17:32 00:00 05:49 WBC RBC Hgb Hct MCHC RDW Lymph % (Auto) [place] % (Auto) Eos % (Auto) Lymph # [place] # Lymph # (Auto) [place] # (Auto) Seg Neutrophils % Seg Neuts % (Manual) Lymphocytes % (Manual) Seg Neutrophils # Seg Neutrophils # Man Lymphocytes # (Manual) Monocytes % (Manual) Eosinophils % (Manual) Monocytes # (Manual) Eosinophils # (Manual) D-Dimer Heparin Anti-Xa Level 0.19 L ABG pH POC ABG pCO2 POC ABG pO2 ABG pO2 ABG HCO3 ABG O2 Saturation ABG Base Excess ABG Hemoglobin ABG Oxyhemoglobin VBG pH Oxyhemoglobin Sodium Potassium Chloride Carbon Dioxide BUN Creatinine Glucose POC Glucose 106 H 117 H Lactic Acid Calcium Ferritin AST Alkaline Phosphatase Magnesium Lactate Dehydrogenase Total Creatine Kinase CK-MB (CK-2) C-Reactive Protein Total Protein Albumin Troponin T HDL Cholesterol Urine WBC (Auto) Urine Creatinine Urine Total Protein Coronavirus (PCR) Crossmatch 06/10/20 06/10/20 06/10/20 05:54 07:40 11:40 WBC RBC Hgb Hct MCHC RDW Lymph % (Auto) [place] % (Auto) Eos % (Auto) Lymph # [place] # Lymph # (Auto) [place] # (Auto) Seg Neutrophils % Seg Neuts % (Manual) Lymphocytes % (Manual) Seg Neutrophils # Seg Neutrophils # Man Lymphocytes # (Manual) Monocytes % (Manual) Eosinophils % (Manual) Monocytes # (Manual) Eosinophils # (Manual) D-Dimer Heparin Anti-Xa Level ABG pH POC ABG pCO2 POC ABG pO2 ABG pO2 ABG HCO3 ABG O2 Saturation ABG Base Excess ABG Hemoglobin ABG Oxyhemoglobin VBG pH Oxyhemoglobin Sodium 146 H D Potassium Chloride Carbon Dioxide 20 L BUN 99 H Creatinine 1.9 H Glucose 121 H POC Glucose 127 H 138 H Lactic Acid Calcium 8.2 L Ferritin AST Alkaline Phosphatase Magnesium Lactate Dehydrogenase Total Creatine Kinase CK-MB (CK-2) C-Reactive Protein Total Protein Albumin Troponin T HDL Cholesterol Urine WBC (Auto) Urine Creatinine Urine Total Protein Coronavirus (PCR) Crossmatch 06/10/20 06/10/20 06/10/20 14:44 17:31 23:22 WBC RBC Hgb Hct MCHC RDW Lymph % (Auto) [place] % (Auto) Eos % (Auto) Lymph # [place] # Lymph # (Auto) [place] # (Auto) Seg Neutrophils % Seg Neuts % (Manual) Lymphocytes % (Manual) Seg Neutrophils # Seg Neutrophils # Man Lymphocytes # (Manual) Monocytes % (Manual) Eosinophils % (Manual) Monocytes # (Manual) Eosinophils # (Manual) D-Dimer Heparin Anti-Xa Level 0.17 L ABG pH POC ABG pCO2 POC ABG pO2 ABG pO2 ABG HCO3 ABG O2 Saturation ABG Base Excess ABG Hemoglobin ABG Oxyhemoglobin VBG pH Oxyhemoglobin Sodium Potassium Chloride Carbon Dioxide BUN Creatinine Glucose POC Glucose 128 H 114 H Lactic Acid Calcium Ferritin AST Alkaline Phosphatase Magnesium Lactate Dehydrogenase Total Creatine Kinase CK-MB (CK-2) C-Reactive Protein Total Protein Albumin Troponin T HDL Cholesterol Urine WBC (Auto) Urine Creatinine Urine Total Protein Coronavirus (PCR) Crossmatch 06/11/20 06/11/20 06/11/20 00:22 03:45 03:45 WBC 14.6 H RBC 2.77 L Hgb 7.9 L Hct 24.3 L MCHC RDW 16.8 H Lymph % (Auto) 6.6 L [place] % (Auto) 8.5 H Eos % (Auto) Lymph # 1.0 L [place] # 1.2 H Lymph # (Auto) [place] # (Auto) Seg Neutrophils % 82.9 H Seg Neuts % (Manual) Lymphocytes % (Manual) Seg Neutrophils # 12.1 H Seg Neutrophils # Man Lymphocytes # (Manual) Monocytes % (Manual) Eosinophils % (Manual) Monocytes # (Manual) Eosinophils # (Manual) D-Dimer Heparin Anti-Xa Level 0.24 L ABG pH POC ABG pCO2 POC ABG pO2 ABG pO2 ABG HCO3 ABG O2 Saturation ABG Base Excess ABG Hemoglobin ABG Oxyhemoglobin VBG pH Oxyhemoglobin Sodium Potassium Chloride Carbon Dioxide 20 L BUN 88 H Creatinine 1.5 H Glucose 111 H POC Glucose Lactic Acid Calcium 8.2 L Ferritin AST Alkaline Phosphatase Magnesium Lactate Dehydrogenase Total Creatine Kinase CK-MB (CK-2) C-Reactive Protein Total Protein Albumin Troponin T HDL Cholesterol Urine WBC (Auto) Urine Creatinine Urine Total Protein Coronavirus (PCR) Crossmatch 06/11/20 06/11/20 06/11/20 06:03 10:22 11:11 WBC RBC Hgb Hct MCHC RDW Lymph % (Auto) [place] % (Auto) Eos % (Auto) Lymph # [place] # Lymph # (Auto) [place] # (Auto) Seg Neutrophils % Seg Neuts % (Manual) Lymphocytes % (Manual) Seg Neutrophils # Seg Neutrophils # Man Lymphocytes # (Manual) Monocytes % (Manual) Eosinophils % (Manual) Monocytes # (Manual) Eosinophils # (Manual) D-Dimer Heparin Anti-Xa Level 0.26 L ABG pH POC ABG pCO2 POC ABG pO2 ABG pO2 ABG HCO3 ABG O2 Saturation ABG Base Excess ABG Hemoglobin 9.6 L ABG Oxyhemoglobin VBG pH Oxyhemoglobin Sodium Potassium Chloride Carbon Dioxide BUN Creatinine Glucose POC Glucose 114 H Lactic Acid Calcium Ferritin AST Alkaline Phosphatase Magnesium Lactate Dehydrogenase Total Creatine Kinase CK-MB (CK-2) C-Reactive Protein Total Protein Albumin Troponin T HDL Cholesterol Urine WBC (Auto) Urine Creatinine Urine Total Protein Coronavirus (PCR) Crossmatch 06/11/20 06/11/20 06/12/20 12:24 17:24 00:21 WBC RBC Hgb Hct MCHC RDW Lymph % (Auto) [place] % (Auto) Eos % (Auto) Lymph # [place] # Lymph # (Auto) [place] # (Auto) Seg Neutrophils % Seg Neuts % (Manual) Lymphocytes % (Manual) Seg Neutrophils # Seg Neutrophils # Man Lymphocytes # (Manual) Monocytes % (Manual) Eosinophils % (Manual) Monocytes # (Manual) Eosinophils # (Manual) D-Dimer Heparin Anti-Xa Level ABG pH POC ABG pCO2 POC ABG pO2 ABG pO2 ABG HCO3 ABG O2 Saturation ABG Base Excess ABG Hemoglobin ABG Oxyhemoglobin VBG pH Oxyhemoglobin Sodium Potassium Chloride Carbon Dioxide BUN Creatinine Glucose POC Glucose 119 H 126 H 117 H Lactic Acid Calcium Ferritin AST Alkaline Phosphatase Magnesium Lactate Dehydrogenase Total Creatine Kinase CK-MB (CK-2) C-Reactive Protein Total Protein Albumin Troponin T HDL Cholesterol Urine WBC (Auto) Urine Creatinine Urine Total Protein Coronavirus (PCR) Crossmatch 06/12/20 06/12/20 06/12/20 02:46 02:46 05:46 WBC 13.2 H RBC 2.83 L Hgb 8.3 L Hct 24.3 L MCHC RDW 16.6 H Lymph % (Auto) 6.2 L [place] % (Auto) 9.5 H Eos % (Auto) Lymph # 0.8 L [place] # 1.3 H Lymph # (Auto) [place] # (Auto) Seg Neutrophils % 81.9 H Seg Neuts % (Manual) Lymphocytes % (Manual) Seg Neutrophils # 10.9 H Seg Neutrophils # Man Lymphocytes # (Manual) Monocytes % (Manual) Eosinophils % (Manual) Monocytes # (Manual) Eosinophils # (Manual) D-Dimer Heparin Anti-Xa Level ABG pH POC ABG pCO2 POC ABG pO2 ABG pO2 ABG HCO3 ABG O2 Saturation ABG Base Excess ABG Hemoglobin ABG Oxyhemoglobin VBG pH Oxyhemoglobin Sodium Potassium 3.5 L Chloride Carbon Dioxide BUN 77 H Creatinine 1.3 H Glucose POC Glucose 132 H Lactic Acid Calcium 8.3 L Ferritin AST Alkaline Phosphatase Magnesium Lactate Dehydrogenase Total Creatine Kinase CK-MB (CK-2) C-Reactive Protein Total Protein Albumin Troponin T HDL Cholesterol Urine WBC (Auto) Urine Creatinine Urine Total Protein Coronavirus (PCR) Crossmatch 06/12/20 06/12/20 06/12/20 09:20 12:16 17:48 WBC RBC Hgb Hct MCHC RDW Lymph % (Auto) [place] % (Auto) Eos % (Auto) Lymph # [place] # Lymph # (Auto) [place] # (Auto) Seg Neutrophils % Seg Neuts % (Manual) Lymphocytes % (Manual) Seg Neutrophils # Seg Neutrophils # Man Lymphocytes # (Manual) Monocytes % (Manual) Eosinophils % (Manual) Monocytes # (Manual) Eosinophils # (Manual) D-Dimer Heparin Anti-Xa Level ABG pH POC ABG pCO2 POC ABG pO2 ABG pO2 91.1 H ABG HCO3 ABG O2 Saturation ABG Base Excess ABG Hemoglobin ABG Oxyhemoglobin VBG pH Oxyhemoglobin 94.8 L Sodium Potassium Chloride Carbon Dioxide BUN Creatinine Glucose POC Glucose 167 H 182 H Lactic Acid Calcium Ferritin AST Alkaline Phosphatase Magnesium Lactate Dehydrogenase Total Creatine Kinase CK-MB (CK-2) C-Reactive Protein Total Protein Albumin Troponin T HDL Cholesterol Urine WBC (Auto) Urine Creatinine Urine Total Protein Coronavirus (PCR) Crossmatch 06/13/20 06/13/20 06/13/20 00:08 05:37 09:09 WBC RBC Hgb Hct MCHC RDW Lymph % (Auto) [place] % (Auto) Eos % (Auto) Lymph # [place] # Lymph # (Auto) [place] # (Auto) Seg Neutrophils % Seg Neuts % (Manual) Lymphocytes % (Manual) Seg Neutrophils # Seg Neutrophils # Man Lymphocytes # (Manual) Monocytes % (Manual) Eosinophils % (Manual) Monocytes # (Manual) Eosinophils # (Manual) D-Dimer Heparin Anti-Xa Level 0.86 H ABG pH POC ABG pCO2 POC ABG pO2 ABG pO2 ABG HCO3 ABG O2 Saturation ABG Base Excess ABG Hemoglobin ABG Oxyhemoglobin VBG pH Oxyhemoglobin Sodium Potassium Chloride Carbon Dioxide BUN Creatinine Glucose POC Glucose 142 H 119 H Lactic Acid Calcium Ferritin AST Alkaline Phosphatase Magnesium Lactate Dehydrogenase Total Creatine Kinase CK-MB (CK-2) C-Reactive Protein Total Protein Albumin Troponin T HDL Cholesterol Urine WBC (Auto) Urine Creatinine Urine Total Protein Coronavirus (PCR) Crossmatch 06/13/20 06/13/20 06/13/20 12:28 17:55 21:17 WBC RBC Hgb Hct MCHC RDW Lymph % (Auto) [place] % (Auto) Eos % (Auto) Lymph # [place] # Lymph # (Auto) [place] # (Auto) Seg Neutrophils % Seg Neuts % (Manual) Lymphocytes % (Manual) Seg Neutrophils # Seg Neutrophils # Man Lymphocytes # (Manual) Monocytes % (Manual) Eosinophils % (Manual) Monocytes # (Manual) Eosinophils # (Manual) D-Dimer Heparin Anti-Xa Level ABG pH POC ABG pCO2 POC ABG pO2 ABG pO2 ABG HCO3 ABG O2 Saturation ABG Base Excess ABG Hemoglobin ABG Oxyhemoglobin VBG pH Oxyhemoglobin Sodium Potassium Chloride Carbon Dioxide BUN 61 H Creatinine Glucose 131 H POC Glucose 165 H 174 H Lactic Acid Calcium Ferritin AST Alkaline Phosphatase Magnesium Lactate Dehydrogenase Total Creatine Kinase CK-MB (CK-2) C-Reactive Protein Total Protein Albumin Troponin T HDL Cholesterol Urine WBC (Auto) Urine Creatinine Urine Total Protein Coronavirus (PCR) Crossmatch 06/13/20 06/13/20 06/14/20 21:17 23:50 05:34 WBC RBC Hgb Hct MCHC RDW Lymph % (Auto) [place] % (Auto) Eos % (Auto) Lymph # [place] # Lymph # (Auto) [place] # (Auto) Seg Neutrophils % Seg Neuts % (Manual) Lymphocytes % (Manual) Seg Neutrophils # Seg Neutrophils # Man Lymphocytes # (Manual) Monocytes % (Manual) Eosinophils % (Manual) Monocytes # (Manual) Eosinophils # (Manual) D-Dimer Heparin Anti-Xa Level 0.72 H ABG pH POC ABG pCO2 POC ABG pO2 ABG pO2 ABG HCO3 ABG O2 Saturation ABG Base Excess ABG Hemoglobin ABG Oxyhemoglobin VBG pH Oxyhemoglobin Sodium 146 H Potassium Chloride 107.6 H Carbon Dioxide BUN 61 H Creatinine 1.3 H Glucose 135 H POC Glucose 146 H Lactic Acid Calcium Ferritin AST Alkaline Phosphatase Magnesium Lactate Dehydrogenase Total Creatine Kinase CK-MB (CK-2) C-Reactive Protein Total Protein Albumin Troponin T HDL Cholesterol Urine WBC (Auto) Urine Creatinine Urine Total Protein Coronavirus (PCR) Crossmatch 06/14/20 06/14/20 06/14/20 06:11 09:28 11:30 WBC RBC Hgb Hct MCHC RDW Lymph % (Auto) [place] % (Auto) Eos % (Auto) Lymph # [place] # Lymph # (Auto) [place] # (Auto) Seg Neutrophils % Seg Neuts % (Manual) Lymphocytes % (Manual) Seg Neutrophils # Seg Neutrophils # Man Lymphocytes # (Manual) Monocytes % (Manual) Eosinophils % (Manual) Monocytes # (Manual) Eosinophils # (Manual) D-Dimer Heparin Anti-Xa Level 0.90 H ABG pH POC ABG pCO2 POC ABG pO2 ABG pO2 ABG HCO3 ABG O2 Saturation ABG Base Excess ABG Hemoglobin ABG Oxyhemoglobin VBG pH Oxyhemoglobin Sodium Potassium Chloride Carbon Dioxide BUN Creatinine Glucose POC Glucose 141 H 186 H Lactic Acid Calcium Ferritin AST Alkaline Phosphatase Magnesium Lactate Dehydrogenase Total Creatine Kinase CK-MB (CK-2) C-Reactive Protein Total Protein Albumin Troponin T HDL Cholesterol Urine WBC (Auto) Urine Creatinine Urine Total Protein Coronavirus (PCR) Crossmatch 06/14/20 06/14/20 06/14/20 16:07 18:16 23:51 WBC RBC Hgb Hct MCHC RDW Lymph % (Auto) [place] % (Auto) Eos % (Auto) Lymph # [place] # Lymph # (Auto) [place] # (Auto) Seg Neutrophils % Seg Neuts % (Manual) Lymphocytes % (Manual) Seg Neutrophils # Seg Neutrophils # Man Lymphocytes # (Manual) Monocytes % (Manual) Eosinophils % (Manual) Monocytes # (Manual) Eosinophils # (Manual) D-Dimer Heparin Anti-Xa Level 0.82 H ABG pH POC ABG pCO2 POC ABG pO2 ABG pO2 ABG HCO3 ABG O2 Saturation ABG Base Excess ABG Hemoglobin ABG Oxyhemoglobin VBG pH Oxyhemoglobin Sodium Potassium Chloride Carbon Dioxide BUN Creatinine Glucose POC Glucose 106 H 154 H Lactic Acid Calcium Ferritin AST Alkaline Phosphatase Magnesium Lactate Dehydrogenase Total Creatine Kinase CK-MB (CK-2) C-Reactive Protein Total Protein Albumin Troponin T HDL Cholesterol Urine WBC (Auto) Urine Creatinine Urine Total Protein Coronavirus (PCR) Crossmatch 06/15/20 06/15/20 06/15/20 04:24 04:24 05:59 WBC RBC 2.75 L Hgb 7.9 L Hct 24.0 L MCHC RDW 16.4 H Lymph % (Auto) 12.9 L [place] % (Auto) 8.7 H Eos % (Auto) 4.6 H Lymph # 1.1 L [place] # Lymph # (Auto) [place] # (Auto) Seg Neutrophils % 73.2 H Seg Neuts % (Manual) Lymphocytes % (Manual) Seg Neutrophils # Seg Neutrophils # Man Lymphocytes # (Manual) Monocytes % (Manual) Eosinophils % (Manual) Monocytes # (Manual) Eosinophils # (Manual) D-Dimer Heparin Anti-Xa Level ABG pH POC ABG pCO2 POC ABG pO2 ABG pO2 ABG HCO3 ABG O2 Saturation ABG Base Excess ABG Hemoglobin ABG Oxyhemoglobin VBG pH Oxyhemoglobin Sodium Potassium 3.4 L Chloride Carbon Dioxide BUN 55 H Creatinine 1.3 H Glucose 142 H POC Glucose 131 H Lactic Acid Calcium Ferritin AST Alkaline Phosphatase Magnesium Lactate Dehydrogenase Total Creatine Kinase CK-MB (CK-2) C-Reactive Protein Total Protein Albumin Troponin T HDL Cholesterol Urine WBC (Auto) Urine Creatinine Urine Total Protein Coronavirus (PCR) Crossmatch 06/15/20 06/15/20 06/16/20 12:33 17:07 00:22 WBC RBC Hgb Hct MCHC RDW Lymph % (Auto) [place] % (Auto) Eos % (Auto) Lymph # [place] # Lymph # (Auto) [place] # (Auto) Seg Neutrophils % Seg Neuts % (Manual) Lymphocytes % (Manual) Seg Neutrophils # Seg Neutrophils # Man Lymphocytes # (Manual) Monocytes % (Manual) Eosinophils % (Manual) Monocytes # (Manual) Eosinophils # (Manual) D-Dimer Heparin Anti-Xa Level 0.21 L ABG pH POC ABG pCO2 POC ABG pO2 ABG pO2 ABG HCO3 ABG O2 Saturation ABG Base Excess ABG Hemoglobin ABG Oxyhemoglobin VBG pH Oxyhemoglobin Sodium Potassium Chloride Carbon Dioxide BUN Creatinine Glucose POC Glucose 180 H 185 H Lactic Acid Calcium Ferritin AST Alkaline Phosphatase Magnesium Lactate Dehydrogenase Total Creatine Kinase CK-MB (CK-2) C-Reactive Protein Total Protein Albumin Troponin T HDL Cholesterol Urine WBC (Auto) Urine Creatinine Urine Total Protein Coronavirus (PCR) Crossmatch 06/16/20 06/16/20 06/16/20 01:45 08:06 09:15 WBC RBC Hgb Hct MCHC RDW Lymph % (Auto) [place] % (Auto) Eos % (Auto) Lymph # [place] # Lymph # (Auto) [place] # (Auto) Seg Neutrophils % Seg Neuts % (Manual) Lymphocytes % (Manual) Seg Neutrophils # Seg Neutrophils # Man Lymphocytes # (Manual) Monocytes % (Manual) Eosinophils % (Manual) Monocytes # (Manual) Eosinophils # (Manual) D-Dimer Heparin Anti-Xa Level ABG pH POC ABG pCO2 POC ABG pO2 ABG pO2 ABG HCO3 ABG O2 Saturation ABG Base Excess ABG Hemoglobin ABG Oxyhemoglobin VBG pH Oxyhemoglobin Sodium Potassium Chloride Carbon Dioxide BUN 49 H Creatinine Glucose 154 H POC Glucose 140 H 171 H Lactic Acid Calcium Ferritin AST Alkaline Phosphatase Magnesium Lactate Dehydrogenase Total Creatine Kinase CK-MB (CK-2) C-Reactive Protein Total Protein Albumin Troponin T HDL Cholesterol Urine WBC (Auto) Urine Creatinine Urine Total Protein Coronavirus (PCR) Crossmatch 06/16/20 06/16/20 06/16/20 10:46 12:33 17:54 WBC RBC Hgb Hct MCHC RDW Lymph % (Auto) [place] % (Auto) Eos % (Auto) Lymph # [place] # Lymph # (Auto) [place] # (Auto) Seg Neutrophils % Seg Neuts % (Manual) Lymphocytes % (Manual) Seg Neutrophils # Seg Neutrophils # Man Lymphocytes # (Manual) Monocytes % (Manual) Eosinophils % (Manual) Monocytes # (Manual) Eosinophils # (Manual) D-Dimer Heparin Anti-Xa Level 0.12 L ABG pH POC ABG pCO2 POC ABG pO2 ABG pO2 ABG HCO3 ABG O2 Saturation ABG Base Excess ABG Hemoglobin ABG Oxyhemoglobin VBG pH Oxyhemoglobin Sodium Potassium Chloride Carbon Dioxide BUN Creatinine Glucose POC Glucose 166 H 151 H Lactic Acid Calcium Ferritin AST Alkaline Phosphatase Magnesium Lactate Dehydrogenase Total Creatine Kinase CK-MB (CK-2) C-Reactive Protein Total Protein Albumin Troponin T HDL Cholesterol Urine WBC (Auto) Urine Creatinine Urine Total Protein Coronavirus (PCR) Crossmatch 06/16/20 06/17/20 06/17/20 18:47 00:00 02:19 WBC RBC Hgb Hct MCHC RDW Lymph % (Auto) [place] % (Auto) Eos % (Auto) Lymph # [place] # Lymph # (Auto) [place] # (Auto) Seg Neutrophils % Seg Neuts % (Manual) Lymphocytes % (Manual) Seg Neutrophils # Seg Neutrophils # Man Lymphocytes # (Manual) Monocytes % (Manual) Eosinophils % (Manual) Monocytes # (Manual) Eosinophils # (Manual) D-Dimer Heparin Anti-Xa Level 0.73 H 0.77 H ABG pH POC ABG pCO2 POC ABG pO2 ABG pO2 ABG HCO3 ABG O2 Saturation ABG Base Excess ABG Hemoglobin ABG Oxyhemoglobin VBG pH Oxyhemoglobin Sodium Potassium Chloride Carbon Dioxide BUN Creatinine Glucose POC Glucose 139 H Lactic Acid Calcium Ferritin AST Alkaline Phosphatase Magnesium Lactate Dehydrogenase Total Creatine Kinase CK-MB (CK-2) C-Reactive Protein Total Protein Albumin Troponin T HDL Cholesterol Urine WBC (Auto) Urine Creatinine Urine Total Protein Coronavirus (PCR) Crossmatch 06/17/20 06/17/20 06/17/20 06:07 11:42 16:43 WBC RBC Hgb Hct MCHC RDW Lymph % (Auto) [place] % (Auto) Eos % (Auto) Lymph # [place] # Lymph # (Auto) [place] # (Auto) Seg Neutrophils % Seg Neuts % (Manual) Lymphocytes % (Manual) Seg Neutrophils # Seg Neutrophils # Man Lymphocytes # (Manual) Monocytes % (Manual) Eosinophils % (Manual) Monocytes # (Manual) Eosinophils # (Manual) D-Dimer Heparin Anti-Xa Level 0.73 H ABG pH POC ABG pCO2 POC ABG pO2 ABG pO2 ABG HCO3 ABG O2 Saturation ABG Base Excess ABG Hemoglobin ABG Oxyhemoglobin VBG pH Oxyhemoglobin Sodium Potassium Chloride Carbon Dioxide BUN Creatinine Glucose POC Glucose 169 H 169 H Lactic Acid Calcium Ferritin AST Alkaline Phosphatase Magnesium Lactate Dehydrogenase Total Creatine Kinase CK-MB (CK-2) C-Reactive Protein Total Protein Albumin Troponin T HDL Cholesterol Urine WBC (Auto) Urine Creatinine Urine Total Protein Coronavirus (PCR) Crossmatch 06/17/20 06/17/20 06/17/20 18:18 23:08 23:16 WBC RBC Hgb Hct MCHC RDW Lymph % (Auto) [place] % (Auto) Eos % (Auto) Lymph # [place] # Lymph # (Auto) [place] # (Auto) Seg Neutrophils % Seg Neuts % (Manual) Lymphocytes % (Manual) Seg Neutrophils # Seg Neutrophils # Man Lymphocytes # (Manual) Monocytes % (Manual) Eosinophils % (Manual) Monocytes # (Manual) Eosinophils # (Manual) D-Dimer Heparin Anti-Xa Level 0.71 H ABG pH POC ABG pCO2 POC ABG pO2 ABG pO2 ABG HCO3 ABG O2 Saturation ABG Base Excess ABG Hemoglobin ABG Oxyhemoglobin VBG pH Oxyhemoglobin Sodium Potassium Chloride Carbon Dioxide BUN Creatinine Glucose POC Glucose 159 H 134 H Lactic Acid Calcium Ferritin AST Alkaline Phosphatase Magnesium Lactate Dehydrogenase Total Creatine Kinase CK-MB (CK-2) C-Reactive Protein Total Protein Albumin Troponin T HDL Cholesterol Urine WBC (Auto) Urine Creatinine Urine Total Protein Coronavirus (PCR) Crossmatch 06/18/20 06/18/20 06/18/20 04:42 05:52 11:50 WBC RBC Hgb Hct MCHC RDW Lymph % (Auto) [place] % (Auto) Eos % (Auto) Lymph # [place] # Lymph # (Auto) [place] # (Auto) Seg Neutrophils % Seg Neuts % (Manual) Lymphocytes % (Manual) Seg Neutrophils # Seg Neutrophils # Man Lymphocytes # (Manual) Monocytes % (Manual) Eosinophils % (Manual) Monocytes # (Manual) Eosinophils # (Manual) D-Dimer Heparin Anti-Xa Level ABG pH POC ABG pCO2 POC ABG pO2 ABG pO2 ABG HCO3 ABG O2 Saturation ABG Base Excess ABG Hemoglobin ABG Oxyhemoglobin VBG pH Oxyhemoglobin Sodium Potassium Chloride Carbon Dioxide BUN 44 H Creatinine Glucose 115 H POC Glucose 171 H 167 H Lactic Acid Calcium Ferritin AST Alkaline Phosphatase Magnesium Lactate Dehydrogenase Total Creatine Kinase CK-MB (CK-2) C-Reactive Protein Total Protein Albumin Troponin T HDL Cholesterol Urine WBC (Auto) Urine Creatinine Urine Total Protein Coronavirus (PCR) Crossmatch 06/18/20 06/19/20 06/19/20 23:46 05:48 07:52 WBC RBC Hgb Hct MCHC RDW Lymph % (Auto) [place] % (Auto) Eos % (Auto) Lymph # [place] # Lymph # (Auto) [place] # (Auto) Seg Neutrophils % Seg Neuts % (Manual) Lymphocytes % (Manual) Seg Neutrophils # Seg Neutrophils # Man Lymphocytes # (Manual) Monocytes % (Manual) Eosinophils % (Manual) Monocytes # (Manual) Eosinophils # (Manual) D-Dimer Heparin Anti-Xa Level ABG pH POC ABG pCO2 POC ABG pO2 ABG pO2 ABG HCO3 ABG O2 Saturation ABG Base Excess ABG Hemoglobin ABG Oxyhemoglobin VBG pH Oxyhemoglobin Sodium Potassium Chloride Carbon Dioxide BUN Creatinine Glucose POC Glucose 130 H 207 H 175 H Lactic Acid Calcium Ferritin AST Alkaline Phosphatase Magnesium Lactate Dehydrogenase Total Creatine Kinase CK-MB (CK-2) C-Reactive Protein Total Protein Albumin Troponin T HDL Cholesterol Urine WBC (Auto) Urine Creatinine Urine Total Protein Coronavirus (PCR) Crossmatch 06/19/20 06/19/20 06/20/20 11:42 22:54 05:17 WBC RBC Hgb Hct MCHC RDW Lymph % (Auto) [place] % (Auto) Eos % (Auto) Lymph # [place] # Lymph # (Auto) [place] # (Auto) Seg Neutrophils % Seg Neuts % (Manual) Lymphocytes % (Manual) Seg Neutrophils # Seg Neutrophils # Man Lymphocytes # (Manual) Monocytes % (Manual) Eosinophils % (Manual) Monocytes # (Manual) Eosinophils # (Manual) D-Dimer Heparin Anti-Xa Level ABG pH POC ABG pCO2 POC ABG pO2 ABG pO2 ABG HCO3 ABG O2 Saturation ABG Base Excess ABG Hemoglobin ABG Oxyhemoglobin VBG pH Oxyhemoglobin Sodium Potassium Chloride Carbon Dioxide BUN Creatinine Glucose POC Glucose 166 H 135 H 218 H Lactic Acid Calcium Ferritin AST Alkaline Phosphatase Magnesium Lactate Dehydrogenase Total Creatine Kinase CK-MB (CK-2) C-Reactive Protein Total Protein Albumin Troponin T HDL Cholesterol Urine WBC (Auto) Urine Creatinine Urine Total Protein Coronavirus (PCR) Crossmatch 06/20/20 06/20/20 06/20/20 12:04 16:25 16:35 WBC RBC Hgb Hct MCHC RDW Lymph % (Auto) [place] % (Auto) Eos % (Auto) Lymph # [place] # Lymph # (Auto) [place] # (Auto) Seg Neutrophils % Seg Neuts % (Manual) Lymphocytes % (Manual) Seg Neutrophils # Seg Neutrophils # Man Lymphocytes # (Manual) Monocytes % (Manual) Eosinophils % (Manual) Monocytes # (Manual) Eosinophils # (Manual) D-Dimer Heparin Anti-Xa Level ABG pH POC ABG pCO2 POC ABG pO2 ABG pO2 59.6 L ABG HCO3 28.7 H ABG O2 Saturation 93.5 L ABG Base Excess 3.4 H ABG Hemoglobin 7.2 L ABG Oxyhemoglobin VBG pH Oxyhemoglobin 91.3 L Sodium Potassium Chloride Carbon Dioxide BUN Creatinine Glucose POC Glucose 194 H 137 H Lactic Acid Calcium Ferritin AST Alkaline Phosphatase Magnesium Lactate Dehydrogenase Total Creatine Kinase CK-MB (CK-2) C-Reactive Protein Total Protein Albumin Troponin T HDL Cholesterol Urine WBC (Auto) Urine Creatinine Urine Total Protein Coronavirus (PCR) Crossmatch 06/20/20 06/21/20 06/21/20 23:59 06:25 12:01 WBC RBC Hgb Hct MCHC RDW Lymph % (Auto) [place] % (Auto) Eos % (Auto) Lymph # [place] # Lymph # (Auto) [place] # (Auto) Seg Neutrophils % Seg Neuts % (Manual) Lymphocytes % (Manual) Seg Neutrophils # Seg Neutrophils # Man Lymphocytes # (Manual) Monocytes % (Manual) Eosinophils % (Manual) Monocytes # (Manual) Eosinophils # (Manual) D-Dimer Heparin Anti-Xa Level ABG pH POC ABG pCO2 POC ABG pO2 ABG pO2 ABG HCO3 ABG O2 Saturation ABG Base Excess ABG Hemoglobin ABG Oxyhemoglobin VBG pH Oxyhemoglobin Sodium Potassium Chloride Carbon Dioxide BUN Creatinine Glucose POC Glucose 156 H 177 H 195 H Lactic Acid Calcium Ferritin AST Alkaline Phosphatase Magnesium Lactate Dehydrogenase Total Creatine Kinase CK-MB (CK-2) C-Reactive Protein Total Protein Albumin Troponin T HDL Cholesterol Urine WBC (Auto) Urine Creatinine Urine Total Protein Coronavirus (PCR) Crossmatch 06/21/20 06/21/20 06/22/20 17:04 21:51 05:06 WBC RBC Hgb Hct MCHC RDW Lymph % (Auto) [place] % (Auto) Eos % (Auto) Lymph # [place] # Lymph # (Auto) [place] # (Auto) Seg Neutrophils % Seg Neuts % (Manual) Lymphocytes % (Manual) Seg Neutrophils # Seg Neutrophils # Man Lymphocytes # (Manual) Monocytes % (Manual) Eosinophils % (Manual) Monocytes # (Manual) Eosinophils # (Manual) D-Dimer Heparin Anti-Xa Level ABG pH POC ABG pCO2 POC ABG pO2 ABG pO2 ABG HCO3 ABG O2 Saturation ABG Base Excess ABG Hemoglobin ABG Oxyhemoglobin VBG pH Oxyhemoglobin Sodium Potassium Chloride Carbon Dioxide BUN Creatinine Glucose POC Glucose 156 H 154 H 167 H Lactic Acid Calcium Ferritin AST Alkaline Phosphatase Magnesium Lactate Dehydrogenase Total Creatine Kinase CK-MB (CK-2) C-Reactive Protein Total Protein Albumin Troponin T HDL Cholesterol Urine WBC (Auto) Urine Creatinine Urine Total Protein Coronavirus (PCR) Crossmatch 06/22/20 06/22/20 06/22/20 11:20 15:27 16:58 WBC RBC Hgb Hct MCHC RDW Lymph % (Auto) [place] % (Auto) Eos % (Auto) Lymph # [place] # Lymph # (Auto) [place] # (Auto) Seg Neutrophils % Seg Neuts % (Manual) Lymphocytes % (Manual) Seg Neutrophils # Seg Neutrophils # Man Lymphocytes # (Manual) Monocytes % (Manual) Eosinophils % (Manual) Monocytes # (Manual) Eosinophils # (Manual) D-Dimer Heparin Anti-Xa Level ABG pH 7.206 L POC ABG pCO2 79.9 H POC ABG pO2 ABG pO2 ABG HCO3 ABG O2 Saturation ABG Base Excess ABG Hemoglobin 8.3 L ABG Oxyhemoglobin VBG pH Oxyhemoglobin Sodium Potassium Chloride Carbon Dioxide BUN Creatinine Glucose POC Glucose 181 H 230 H Lactic Acid Calcium Ferritin AST Alkaline Phosphatase Magnesium Lactate Dehydrogenase Total Creatine Kinase CK-MB (CK-2) C-Reactive Protein Total Protein Albumin Troponin T HDL Cholesterol Urine WBC (Auto) Urine Creatinine Urine Total Protein Coronavirus (PCR) Crossmatch 06/22/20 06/23/20 06/23/20 22:26 05:49 05:49 WBC RBC 2.58 L Hgb 7.4 L Hct 23.2 L MCHC RDW 17.0 H Lymph % (Auto) [place] % (Auto) 11.2 H Eos % (Auto) Lymph # 1.0 L [place] # Lymph # (Auto) [place] # (Auto) Seg Neutrophils % Seg Neuts % (Manual) Lymphocytes % (Manual) Seg Neutrophils # Seg Neutrophils # Man Lymphocytes # (Manual) Monocytes % (Manual) Eosinophils % (Manual) Monocytes # (Manual) Eosinophils # (Manual) D-Dimer Heparin Anti-Xa Level ABG pH POC ABG pCO2 POC ABG pO2 ABG pO2 ABG HCO3 ABG O2 Saturation ABG Base Excess ABG Hemoglobin ABG Oxyhemoglobin VBG pH Oxyhemoglobin Sodium Potassium Chloride Carbon Dioxide BUN 68 H Creatinine 2.4 H Glucose 198 H POC Glucose 195 H Lactic Acid Calcium Ferritin AST Alkaline Phosphatase Magnesium Lactate Dehydrogenase Total Creatine Kinase CK-MB (CK-2) C-Reactive Protein Total Protein Albumin Troponin T HDL Cholesterol Urine WBC (Auto) Urine Creatinine Urine Total Protein Coronavirus (PCR) Crossmatch 06/23/20 06/23/20 06/23/20 05:50 12:29 12:34 WBC RBC Hgb Hct MCHC RDW Lymph % (Auto) [place] % (Auto) Eos % (Auto) Lymph # [place] # Lymph # (Auto) [place] # (Auto) Seg Neutrophils % Seg Neuts % (Manual) Lymphocytes % (Manual) Seg Neutrophils # Seg Neutrophils # Man Lymphocytes # (Manual) Monocytes % (Manual) Eosinophils % (Manual) Monocytes # (Manual) Eosinophils # (Manual) D-Dimer Heparin Anti-Xa Level ABG pH POC ABG pCO2 54.7 H POC ABG pO2 68.8 L ABG pO2 ABG HCO3 ABG O2 Saturation ABG Base Excess ABG Hemoglobin 9.8 L ABG Oxyhemoglobin 92.6 L VBG pH Oxyhemoglobin Sodium Potassium Chloride Carbon Dioxide BUN Creatinine Glucose POC Glucose 202 H 218 H Lactic Acid Calcium Ferritin AST Alkaline Phosphatase Magnesium Lactate Dehydrogenase Total Creatine Kinase CK-MB (CK-2) C-Reactive Protein Total Protein Albumin Troponin T HDL Cholesterol Urine WBC (Auto) Urine Creatinine Urine Total Protein Coronavirus (PCR) Crossmatch 06/23/20 06/23/20 06/24/20 16:02 22:22 01:06 WBC RBC Hgb Hct MCHC RDW Lymph % (Auto) [place] % (Auto) Eos % (Auto) Lymph # [place] # Lymph # (Auto) [place] # (Auto) Seg Neutrophils % Seg Neuts % (Manual) Lymphocytes % (Manual) Seg Neutrophils # Seg Neutrophils # Man Lymphocytes # (Manual) Monocytes % (Manual) Eosinophils % (Manual) Monocytes # (Manual) Eosinophils # (Manual) D-Dimer Heparin Anti-Xa Level ABG pH POC ABG pCO2 POC ABG pO2 ABG pO2 ABG HCO3 ABG O2 Saturation ABG Base Excess ABG Hemoglobin ABG Oxyhemoglobin VBG pH Oxyhemoglobin Sodium Potassium Chloride Carbon Dioxide BUN Creatinine Glucose POC Glucose 190 H 166 H 171 H Lactic Acid Calcium Ferritin AST Alkaline Phosphatase Magnesium Lactate Dehydrogenase Total Creatine Kinase CK-MB (CK-2) C-Reactive Protein Total Protein Albumin Troponin T HDL Cholesterol Urine WBC (Auto) Urine Creatinine Urine Total Protein Coronavirus (PCR) Crossmatch 06/24/20 06/24/20 06/24/20 04:48 05:35 11:48 WBC RBC Hgb Hct MCHC RDW Lymph % (Auto) [place] % (Auto) Eos % (Auto) Lymph # [place] # Lymph # (Auto) [place] # (Auto) Seg Neutrophils % Seg Neuts % (Manual) Lymphocytes % (Manual) Seg Neutrophils # Seg Neutrophils # Man Lymphocytes # (Manual) Monocytes % (Manual) Eosinophils % (Manual) Monocytes # (Manual) Eosinophils # (Manual) D-Dimer Heparin Anti-Xa Level ABG pH POC ABG pCO2 POC ABG pO2 ABG pO2 ABG HCO3 ABG O2 Saturation ABG Base Excess ABG Hemoglobin ABG Oxyhemoglobin VBG pH Oxyhemoglobin Sodium Potassium Chloride Carbon Dioxide BUN 75 H Creatinine 2.6 H Glucose 179 H POC Glucose 172 H 153 H Lactic Acid Calcium Ferritin AST Alkaline Phosphatase Magnesium Lactate Dehydrogenase Total Creatine Kinase CK-MB (CK-2) C-Reactive Protein Total Protein Albumin Troponin T HDL Cholesterol Urine WBC (Auto) Urine Creatinine Urine Total Protein Coronavirus (PCR) Crossmatch 06/24/20 06/24/20 06/25/20 16:38 21:52 12:00 WBC RBC Hgb Hct MCHC RDW Lymph % (Auto) [place] % (Auto) Eos % (Auto) Lymph # [place] # Lymph # (Auto) [place] # (Auto) Seg Neutrophils % Seg Neuts % (Manual) Lymphocytes % (Manual) Seg Neutrophils # Seg Neutrophils # Man Lymphocytes # (Manual) Monocytes % (Manual) Eosinophils % (Manual) Monocytes # (Manual) Eosinophils # (Manual) D-Dimer Heparin Anti-Xa Level ABG pH POC ABG pCO2 POC ABG pO2 ABG pO2 ABG HCO3 ABG O2 Saturation ABG Base Excess ABG Hemoglobin ABG Oxyhemoglobin VBG pH Oxyhemoglobin Sodium Potassium Chloride Carbon Dioxide BUN Creatinine Glucose POC Glucose 123 H 115 H 203 H Lactic Acid Calcium Ferritin AST Alkaline Phosphatase Magnesium Lactate Dehydrogenase Total Creatine Kinase CK-MB (CK-2) C-Reactive Protein Total Protein Albumin Troponin T HDL Cholesterol Urine WBC (Auto) Urine Creatinine Urine Total Protein Coronavirus (PCR) Crossmatch 06/25/20 06/25/20 06/25/20 15:43 16:37 23:02 WBC RBC Hgb Hct MCHC RDW Lymph % (Auto) [place] % (Auto) Eos % (Auto) Lymph # [place] # Lymph # (Auto) [place] # (Auto) Seg Neutrophils % Seg Neuts % (Manual) Lymphocytes % (Manual) Seg Neutrophils # Seg Neutrophils # Man Lymphocytes # (Manual) Monocytes % (Manual) Eosinophils % (Manual) Monocytes # (Manual) Eosinophils # (Manual) D-Dimer Heparin Anti-Xa Level ABG pH POC ABG pCO2 POC ABG pO2 ABG pO2 ABG HCO3 ABG O2 Saturation ABG Base Excess ABG Hemoglobin ABG Oxyhemoglobin VBG pH Oxyhemoglobin Sodium Potassium Chloride Carbon Dioxide BUN 71 H Creatinine 1.8 H Glucose 170 H POC Glucose 191 H 126 H Lactic Acid Calcium 8.2 L Ferritin AST Alkaline Phosphatase Magnesium Lactate Dehydrogenase Total Creatine Kinase CK-MB (CK-2) C-Reactive Protein Total Protein Albumin Troponin T HDL Cholesterol Urine WBC (Auto) Urine Creatinine Urine Total Protein Coronavirus (PCR) Crossmatch 06/26/20 06/26/20 06/26/20 06:34 06:34 09:27 WBC RBC 2.41 L Hgb 6.9 L Hct 21.5 L MCHC RDW 16.7 H Lymph % (Auto) 10.9 L [place] % (Auto) 9.6 H Eos % (Auto) Lymph # 0.7 L [place] # Lymph # (Auto) [place] # (Auto) Seg Neutrophils % 75.4 H Seg Neuts % (Manual) Lymphocytes % (Manual) Seg Neutrophils # Seg Neutrophils # Man Lymphocytes # (Manual) Monocytes % (Manual) Eosinophils % (Manual) Monocytes # (Manual) Eosinophils # (Manual) D-Dimer Heparin Anti-Xa Level ABG pH POC ABG pCO2 POC ABG pO2 ABG pO2 ABG HCO3 ABG O2 Saturation ABG Base Excess ABG Hemoglobin ABG Oxyhemoglobin VBG pH Oxyhemoglobin Sodium Potassium Chloride Carbon Dioxide BUN 77 H Creatinine 1.9 H Glucose 190 H POC Glucose Lactic Acid Calcium Ferritin AST Alkaline Phosphatase Magnesium Lactate Dehydrogenase Total Creatine Kinase CK-MB (CK-2) C-Reactive Protein Total Protein Albumin Troponin T HDL Cholesterol Urine WBC (Auto) Urine Creatinine Urine Total Protein Coronavirus (PCR) Crossmatch See Detail 06/26/20 06/26/20 06/26/20 12:15 16:28 17:28 WBC RBC Hgb Hct MCHC RDW Lymph % (Auto) [place] % (Auto) Eos % (Auto) Lymph # [place] # Lymph # (Auto) [place] # (Auto) Seg Neutrophils % Seg Neuts % (Manual) Lymphocytes % (Manual) Seg Neutrophils # Seg Neutrophils # Man Lymphocytes # (Manual) Monocytes % (Manual) Eosinophils % (Manual) Monocytes # (Manual) Eosinophils # (Manual) D-Dimer Heparin Anti-Xa Level ABG pH POC ABG pCO2 POC ABG pO2 ABG pO2 ABG HCO3 ABG O2 Saturation ABG Base Excess ABG Hemoglobin ABG Oxyhemoglobin VBG pH Oxyhemoglobin Sodium Potassium Chloride Carbon Dioxide BUN Creatinine Glucose POC Glucose 187 H 149 H 189 H Lactic Acid Calcium Ferritin AST Alkaline Phosphatase Magnesium Lactate Dehydrogenase Total Creatine Kinase CK-MB (CK-2) C-Reactive Protein Total Protein Albumin Troponin T HDL Cholesterol Urine WBC (Auto) Urine Creatinine Urine Total Protein Coronavirus (PCR) Crossmatch 06/26/20 06/26/20 06/26/20 18:30 18:30 18:30 WBC RBC 2.87 L Hgb 8.2 L Hct 25.9 L MCHC RDW 17.8 H Lymph % (Auto) [place] % (Auto) Eos % (Auto) Lymph # [place] # Lymph # (Auto) [place] # (Auto) Seg Neutrophils % Seg Neuts % (Manual) 83.0 H Lymphocytes % (Manual) 8.0 L Seg Neutrophils # Seg Neutrophils # Man Lymphocytes # (Manual) 0.6 L Monocytes % (Manual) Eosinophils % (Manual) Monocytes # (Manual) Eosinophils # (Manual) D-Dimer Heparin Anti-Xa Level ABG pH POC ABG pCO2 POC ABG pO2 ABG pO2 ABG HCO3 ABG O2 Saturation ABG Base Excess ABG Hemoglobin ABG Oxyhemoglobin VBG pH Oxyhemoglobin Sodium Potassium Chloride Carbon Dioxide BUN 80 H Creatinine 2.1 H Glucose 260 H POC Glucose Lactic Acid 4.30 H* Calcium 8.3 L Ferritin AST Alkaline Phosphatase Magnesium Lactate Dehydrogenase Total Creatine Kinase CK-MB (CK-2) C-Reactive Protein Total Protein Albumin Troponin T HDL Cholesterol Urine WBC (Auto) Urine Creatinine Urine Total Protein Coronavirus (PCR) Crossmatch 06/26/20 06/27/20 06/27/20 18:50 01:00 04:29 WBC RBC Hgb Hct MCHC RDW Lymph % (Auto) [place] % (Auto) Eos % (Auto) Lymph # [place] # Lymph # (Auto) [place] # (Auto) Seg Neutrophils % Seg Neuts % (Manual) Lymphocytes % (Manual) Seg Neutrophils # Seg Neutrophils # Man Lymphocytes # (Manual) Monocytes % (Manual) Eosinophils % (Manual) Monocytes # (Manual) Eosinophils # (Manual) D-Dimer Heparin Anti-Xa Level ABG pH 7.296 L POC ABG pCO2 POC ABG pO2 ABG pO2 116.5 H 200.5 H ABG HCO3 28.4 H ABG O2 Saturation 99.3 H ABG Base Excess 3.7 H ABG Hemoglobin 5.6 L ABG Oxyhemoglobin VBG pH Oxyhemoglobin Sodium Potassium Chloride Carbon Dioxide BUN Creatinine Glucose POC Glucose 123 H Lactic Acid Calcium Ferritin AST Alkaline Phosphatase Magnesium Lactate Dehydrogenase Total Creatine Kinase CK-MB (CK-2) C-Reactive Protein Total Protein Albumin Troponin T HDL Cholesterol Urine WBC (Auto) Urine Creatinine Urine Total Protein Coronavirus (PCR) Crossmatch 06/27/20 06/27/20 06/27/20 05:00 05:00 05:00 WBC RBC 2.75 L Hgb 7.9 L Hct 24.3 L MCHC RDW 17.1 H Lymph % (Auto) 8.5 L [place] % (Auto) 12.6 H Eos % (Auto) Lymph # 0.7 L [place] # 1.0 H Lymph # (Auto) [place] # (Auto) Seg Neutrophils % 77.5 H Seg Neuts % (Manual) Lymphocytes % (Manual) Seg Neutrophils # Seg Neutrophils # Man Lymphocytes # (Manual) Monocytes % (Manual) Eosinophils % (Manual) Monocytes # (Manual) Eosinophils # (Manual) D-Dimer Heparin Anti-Xa Level ABG pH POC ABG pCO2 POC ABG pO2 ABG pO2 ABG HCO3 ABG O2 Saturation ABG Base Excess ABG Hemoglobin ABG Oxyhemoglobin VBG pH Oxyhemoglobin Sodium Potassium Chloride Carbon Dioxide BUN 80 H Creatinine 2.0 H Glucose 129 H POC Glucose Lactic Acid 0.60 L Calcium 7.9 L Ferritin AST Alkaline Phosphatase Magnesium Lactate Dehydrogenase Total Creatine Kinase CK-MB (CK-2) C-Reactive Protein Total Protein Albumin Troponin T HDL Cholesterol Urine WBC (Auto) Urine Creatinine Urine Total Protein Coronavirus (PCR) Crossmatch 06/27/20 06/27/20 06/27/20 05:23 13:46 17:25 WBC RBC Hgb Hct MCHC RDW Lymph % (Auto) [place] % (Auto) Eos % (Auto) Lymph # [place] # Lymph # (Auto) [place] # (Auto) Seg Neutrophils % Seg Neuts % (Manual) Lymphocytes % (Manual) Seg Neutrophils # Seg Neutrophils # Man Lymphocytes # (Manual) Monocytes % (Manual) Eosinophils % (Manual) Monocytes # (Manual) Eosinophils # (Manual) D-Dimer Heparin Anti-Xa Level ABG pH POC ABG pCO2 POC ABG pO2 ABG pO2 ABG HCO3 ABG O2 Saturation ABG Base Excess ABG Hemoglobin ABG Oxyhemoglobin VBG pH Oxyhemoglobin Sodium Potassium Chloride Carbon Dioxide BUN Creatinine Glucose POC Glucose 109 H 158 H 162 H Lactic Acid Calcium Ferritin AST Alkaline Phosphatase Magnesium Lactate Dehydrogenase Total Creatine Kinase CK-MB (CK-2) C-Reactive Protein Total Protein Albumin Troponin T HDL Cholesterol Urine WBC (Auto) Urine Creatinine Urine Total Protein Coronavirus (PCR) Crossmatch 06/27/20 06/27/20 06/28/20 18:43 23:46 04:05 WBC RBC Hgb 7.7 L Hct 22.1 L MCHC RDW Lymph % (Auto) [place] % (Auto) Eos % (Auto) Lymph # [place] # Lymph # (Auto) [place] # (Auto) Seg Neutrophils % Seg Neuts % (Manual) Lymphocytes % (Manual) Seg Neutrophils # Seg Neutrophils # Man Lymphocytes # (Manual) Monocytes % (Manual) Eosinophils % (Manual) Monocytes # (Manual) Eosinophils # (Manual) D-Dimer Heparin Anti-Xa Level ABG pH POC ABG pCO2 POC ABG pO2 ABG pO2 102.7 H ABG HCO3 28.7 H ABG O2 Saturation ABG Base Excess 3.7 H ABG Hemoglobin ABG Oxyhemoglobin VBG pH Oxyhemoglobin Sodium Potassium Chloride Carbon Dioxide BUN Creatinine Glucose POC Glucose 142 H Lactic Acid Calcium Ferritin AST Alkaline Phosphatase Magnesium Lactate Dehydrogenase Total Creatine Kinase CK-MB (CK-2) C-Reactive Protein Total Protein Albumin Troponin T HDL Cholesterol Urine WBC (Auto) Urine Creatinine Urine Total Protein Coronavirus (PCR) Crossmatch 06/28/20 06/28/20 06/28/20 09:47 09:47 12:02 WBC RBC 2.53 L Hgb 7.4 L Hct 22.2 L MCHC RDW 16.8 H Lymph % (Auto) [place] % (Auto) 13.5 H Eos % (Auto) Lymph # 1.1 L [place] # 1.0 H Lymph # (Auto) [place] # (Auto) Seg Neutrophils % Seg Neuts % (Manual) Lymphocytes % (Manual) Seg Neutrophils # Seg Neutrophils # Man Lymphocytes # (Manual) Monocytes % (Manual) Eosinophils % (Manual) Monocytes # (Manual) Eosinophils # (Manual) D-Dimer Heparin Anti-Xa Level ABG pH POC ABG pCO2 POC ABG pO2 ABG pO2 ABG HCO3 ABG O2 Saturation ABG Base Excess ABG Hemoglobin ABG Oxyhemoglobin VBG pH Oxyhemoglobin Sodium Potassium Chloride Carbon Dioxide BUN 80 H Creatinine 1.5 H Glucose 139 H POC Glucose 169 H Lactic Acid Calcium 7.9 L Ferritin AST Alkaline Phosphatase Magnesium Lactate Dehydrogenase Total Creatine Kinase CK-MB (CK-2) C-Reactive Protein Total Protein 5.0 L Albumin 2.1 L Troponin T HDL Cholesterol Urine WBC (Auto) Urine Creatinine Urine Total Protein Coronavirus (PCR) Crossmatch 06/28/20 06/28/20 06/28/20 12:30 12:30 17:24 WBC RBC 2.38 L Hgb 7.3 L Hct 20.9 L MCHC 35 H RDW 16.7 H Lymph % (Auto) [place] % (Auto) Eos % (Auto) Lymph # [place] # Lymph # (Auto) [place] # (Auto) Seg Neutrophils % Seg Neuts % (Manual) Lymphocytes % (Manual) Seg Neutrophils # Seg Neutrophils # Man Lymphocytes # (Manual) Monocytes % (Manual) Eosinophils % (Manual) Monocytes # (Manual) Eosinophils # (Manual) D-Dimer Heparin Anti-Xa Level ABG pH POC ABG pCO2 POC ABG pO2 ABG pO2 ABG HCO3 ABG O2 Saturation ABG Base Excess ABG Hemoglobin ABG Oxyhemoglobin VBG pH Oxyhemoglobin Sodium Potassium Chloride Carbon Dioxide BUN 74 H Creatinine 1.5 H Glucose 143 H POC Glucose 173 H Lactic Acid Calcium 7.5 L Ferritin AST Alkaline Phosphatase Magnesium Lactate Dehydrogenase Total Creatine Kinase CK-MB (CK-2) C-Reactive Protein Total Protein Albumin Troponin T HDL Cholesterol Urine WBC (Auto) Urine Creatinine Urine Total Protein Coronavirus (PCR) Crossmatch 06/29/20 06/29/20 06/29/20 00:02 03:54 04:38 WBC RBC 2.55 L Hgb 7.3 L Hct 22.4 L MCHC RDW 16.4 H Lymph % (Auto) 13.3 L [place] % (Auto) 12.5 H Eos % (Auto) Lymph # 1.1 L [place] # 1.0 H Lymph # (Auto) [place] # (Auto) Seg Neutrophils % Seg Neuts % (Manual) Lymphocytes % (Manual) Seg Neutrophils # Seg Neutrophils # Man Lymphocytes # (Manual) Monocytes % (Manual) Eosinophils % (Manual) Monocytes # (Manual) Eosinophils # (Manual) D-Dimer Heparin Anti-Xa Level ABG pH POC ABG pCO2 POC ABG pO2 ABG pO2 ABG HCO3 26.9 H ABG O2 Saturation ABG Base Excess ABG Hemoglobin 6.9 L ABG Oxyhemoglobin VBG pH Oxyhemoglobin Sodium Potassium Chloride Carbon Dioxide BUN Creatinine Glucose POC Glucose 142 H Lactic Acid Calcium Ferritin AST Alkaline Phosphatase Magnesium Lactate Dehydrogenase Total Creatine Kinase CK-MB (CK-2) C-Reactive Protein Total Protein Albumin Troponin T HDL Cholesterol Urine WBC (Auto) Urine Creatinine Urine Total Protein Coronavirus (PCR) Crossmatch 06/29/20 06/29/20 06/29/20 04:38 05:38 12:25 WBC RBC Hgb Hct MCHC RDW Lymph % (Auto) [place] % (Auto) Eos % (Auto) Lymph # [place] # Lymph # (Auto) [place] # (Auto) Seg Neutrophils % Seg Neuts % (Manual) Lymphocytes % (Manual) Seg Neutrophils # Seg Neutrophils # Man Lymphocytes # (Manual) Monocytes % (Manual) Eosinophils % (Manual) Monocytes # (Manual) Eosinophils # (Manual) D-Dimer Heparin Anti-Xa Level ABG pH POC ABG pCO2 POC ABG pO2 ABG pO2 ABG HCO3 ABG O2 Saturation ABG Base Excess ABG Hemoglobin ABG Oxyhemoglobin VBG pH Oxyhemoglobin Sodium Potassium Chloride 107.8 H Carbon Dioxide BUN 72 H Creatinine 1.4 H Glucose 127 H POC Glucose 122 H 138 H Lactic Acid Calcium 7.4 L Ferritin AST Alkaline Phosphatase Magnesium Lactate Dehydrogenase Total Creatine Kinase CK-MB (CK-2) C-Reactive Protein Total Protein Albumin Troponin T HDL Cholesterol Urine WBC (Auto) Urine Creatinine Urine Total Protein Coronavirus (PCR) Crossmatch 06/29/20 06/29/20 06/29/20 14:45 14:45 14:45 WBC RBC Hgb Hct MCHC RDW Lymph % (Auto) [place] % (Auto) Eos % (Auto) Lymph # [place] # Lymph # (Auto) [place] # (Auto) Seg Neutrophils % Seg Neuts % (Manual) Lymphocytes % (Manual) Seg Neutrophils # Seg Neutrophils # Man Lymphocytes # (Manual) Monocytes % (Manual) Eosinophils % (Manual) Monocytes # (Manual) Eosinophils # (Manual) D-Dimer 2310.15 H Heparin Anti-Xa Level ABG pH POC ABG pCO2 POC ABG pO2 ABG pO2 ABG HCO3 ABG O2 Saturation ABG Base Excess ABG Hemoglobin ABG Oxyhemoglobin VBG pH Oxyhemoglobin Sodium Potassium Chloride Carbon Dioxide BUN Creatinine Glucose POC Glucose Lactic Acid Calcium Ferritin 223.6 H AST Alkaline Phosphatase Magnesium Lactate Dehydrogenase 367 H Total Creatine Kinase CK-MB (CK-2) C-Reactive Protein 3.60 H Total Protein Albumin Troponin T HDL Cholesterol Urine WBC (Auto) Urine Creatinine Urine Total Protein Coronavirus (PCR) Crossmatch 06/29/20 06/29/20 06/29/20 18:27 23:35 Unknown WBC RBC Hgb Hct MCHC RDW Lymph % (Auto) [place] % (Auto) Eos % (Auto) Lymph # [place] # Lymph # (Auto) [place] # (Auto) Seg Neutrophils % Seg Neuts % (Manual) Lymphocytes % (Manual) Seg Neutrophils # Seg Neutrophils # Man Lymphocytes # (Manual) Monocytes % (Manual) Eosinophils % (Manual) Monocytes # (Manual) Eosinophils # (Manual) D-Dimer Heparin Anti-Xa Level ABG pH POC ABG pCO2 POC ABG pO2 ABG pO2 ABG HCO3 ABG O2 Saturation ABG Base Excess ABG Hemoglobin ABG Oxyhemoglobin VBG pH Oxyhemoglobin Sodium Potassium Chloride Carbon Dioxide BUN Creatinine Glucose POC Glucose 112 H 140 H Lactic Acid Calcium Ferritin AST Alkaline Phosphatase Magnesium Lactate Dehydrogenase Total Creatine Kinase CK-MB (CK-2) C-Reactive Protein Total Protein Albumin Troponin T HDL Cholesterol Urine WBC (Auto) Urine Creatinine Urine Total Protein Coronavirus (PCR) Positive A Crossmatch 06/30/20 06/30/20 06/30/20 04:10 04:10 06:09 WBC RBC 2.44 L Hgb 7.1 L Hct 21.5 L MCHC RDW 16.6 H Lymph % (Auto) 11.0 L [place] % (Auto) 10.8 H Eos % (Auto) Lymph # 0.9 L [place] # 0.9 H Lymph # (Auto) [place] # (Auto) Seg Neutrophils % 73.7 H Seg Neuts % (Manual) Lymphocytes % (Manual) Seg Neutrophils # Seg Neutrophils # Man Lymphocytes # (Manual) Monocytes % (Manual) Eosinophils % (Manual) Monocytes # (Manual) Eosinophils # (Manual) D-Dimer Heparin Anti-Xa Level ABG pH POC ABG pCO2 POC ABG pO2 ABG pO2 ABG HCO3 ABG O2 Saturation ABG Base Excess ABG Hemoglobin ABG Oxyhemoglobin VBG pH Oxyhemoglobin Sodium Potassium Chloride 109.1 H Carbon Dioxide BUN 74 H Creatinine 1.3 H Glucose 191 H POC Glucose 187 H Lactic Acid Calcium 7.8 L Ferritin AST Alkaline Phosphatase Magnesium Lactate Dehydrogenase Total Creatine Kinase CK-MB (CK-2) C-Reactive Protein Total Protein Albumin Troponin T HDL Cholesterol Urine WBC (Auto) Urine Creatinine Urine Total Protein Coronavirus (PCR) Crossmatch 06/30/20 06/30/20 06/30/20 12:04 17:43 23:41 WBC RBC Hgb Hct MCHC RDW Lymph % (Auto) [place] % (Auto) Eos % (Auto) Lymph # [place] # Lymph # (Auto) [place] # (Auto) Seg Neutrophils % Seg Neuts % (Manual) Lymphocytes % (Manual) Seg Neutrophils # Seg Neutrophils # Man Lymphocytes # (Manual) Monocytes % (Manual) Eosinophils % (Manual) Monocytes # (Manual) Eosinophils # (Manual) D-Dimer Heparin Anti-Xa Level ABG pH POC ABG pCO2 POC ABG pO2 ABG pO2 ABG HCO3 ABG O2 Saturation ABG Base Excess ABG Hemoglobin ABG Oxyhemoglobin VBG pH Oxyhemoglobin Sodium Potassium Chloride Carbon Dioxide BUN Creatinine Glucose POC Glucose 112 H 177 H 143 H Lactic Acid Calcium Ferritin AST Alkaline Phosphatase Magnesium Lactate Dehydrogenase Total Creatine Kinase CK-MB (CK-2) C-Reactive Protein Total Protein Albumin Troponin T HDL Cholesterol Urine WBC (Auto) Urine Creatinine Urine Total Protein Coronavirus (PCR) Crossmatch 07/01/20 07/01/20 07/01/20 05:02 05:52 06:01 WBC 12.6 H RBC 2.95 L Hgb 8.2 L Hct 26.0 L MCHC RDW 16.9 H Lymph % (Auto) [place] % (Auto) Eos % (Auto) Lymph # [place] # Lymph # (Auto) [place] # (Auto) Seg Neutrophils % Seg Neuts % (Manual) Lymphocytes % (Manual) Seg Neutrophils # Seg Neutrophils # Man 8.6 H Lymphocytes # (Manual) Monocytes % (Manual) Eosinophils % (Manual) 5.0 H Monocytes # (Manual) Eosinophils # (Manual) 0.6 H D-Dimer Heparin Anti-Xa Level ABG pH POC ABG pCO2 POC ABG pO2 ABG pO2 ABG HCO3 ABG O2 Saturation ABG Base Excess ABG Hemoglobin 8.2 L ABG Oxyhemoglobin VBG pH Oxyhemoglobin Sodium Potassium Chloride Carbon Dioxide BUN Creatinine Glucose POC Glucose 129 H Lactic Acid Calcium Ferritin AST Alkaline Phosphatase Magnesium Lactate Dehydrogenase Total Creatine Kinase CK-MB (CK-2) C-Reactive Protein Total Protein Albumin Troponin T HDL Cholesterol Urine WBC (Auto) Urine Creatinine Urine Total Protein Coronavirus (PCR) Crossmatch 07/01/20 07/01/20 07/01/20 06:01 06:01 06:08 WBC RBC Hgb Hct MCHC RDW Lymph % (Auto) [place] % (Auto) Eos % (Auto) Lymph # [place] # Lymph # (Auto) [place] # (Auto) Seg Neutrophils % Seg Neuts % (Manual) Lymphocytes % (Manual) Seg Neutrophils # Seg Neutrophils # Man Lymphocytes # (Manual) Monocytes % (Manual) Eosinophils % (Manual) Monocytes # (Manual) Eosinophils # (Manual) D-Dimer Heparin Anti-Xa Level ABG pH POC ABG pCO2 POC ABG pO2 ABG pO2 ABG HCO3 ABG O2 Saturation ABG Base Excess ABG Hemoglobin ABG Oxyhemoglobin VBG pH Oxyhemoglobin Sodium 147 H Potassium Chloride 108.0 H Carbon Dioxide BUN 71 H Creatinine 1.3 H Glucose 193 H POC Glucose 192 H Lactic Acid Calcium 8.1 L Ferritin AST Alkaline Phosphatase Magnesium Lactate Dehydrogenase Total Creatine Kinase 300 H CK-MB (CK-2) C-Reactive Protein Total Protein Albumin Troponin T 0.067 H HDL Cholesterol 61 H Urine WBC (Auto) Urine Creatinine Urine Total Protein Coronavirus (PCR) Crossmatch 07/01/20 07/01/20 07/02/20 12:23 17:40 00:18 WBC RBC Hgb Hct MCHC RDW Lymph % (Auto) [place] % (Auto) Eos % (Auto) Lymph # [place] # Lymph # (Auto) [place] # (Auto) Seg Neutrophils % Seg Neuts % (Manual) Lymphocytes % (Manual) Seg Neutrophils # Seg Neutrophils # Man Lymphocytes # (Manual) Monocytes % (Manual) Eosinophils % (Manual) Monocytes # (Manual) Eosinophils # (Manual) D-Dimer Heparin Anti-Xa Level ABG pH POC ABG pCO2 POC ABG pO2 ABG pO2 ABG HCO3 ABG O2 Saturation ABG Base Excess ABG Hemoglobin ABG Oxyhemoglobin VBG pH Oxyhemoglobin Sodium Potassium Chloride Carbon Dioxide BUN Creatinine Glucose POC Glucose 111 H 135 H 145 H Lactic Acid Calcium Ferritin AST Alkaline Phosphatase Magnesium Lactate Dehydrogenase Total Creatine Kinase CK-MB (CK-2) C-Reactive Protein Total Protein Albumin Troponin T HDL Cholesterol Urine WBC (Auto) Urine Creatinine Urine Total Protein Coronavirus (PCR) Crossmatch 07/02/20 07/02/20 07/02/20 04:11 04:23 05:54 WBC RBC Hgb Hct MCHC RDW Lymph % (Auto) [place] % (Auto) Eos % (Auto) Lymph # [place] # Lymph # (Auto) [place] # (Auto) Seg Neutrophils % Seg Neuts % (Manual) Lymphocytes % (Manual) Seg Neutrophils # Seg Neutrophils # Man Lymphocytes # (Manual) Monocytes % (Manual) Eosinophils % (Manual) Monocytes # (Manual) Eosinophils # (Manual) D-Dimer Heparin Anti-Xa Level ABG pH POC ABG pCO2 POC ABG pO2 ABG pO2 ABG HCO3 ABG O2 Saturation ABG Base Excess ABG Hemoglobin 5.4 L ABG Oxyhemoglobin VBG pH Oxyhemoglobin Sodium Potassium Chloride 108.6 H Carbon Dioxide BUN 72 H Creatinine Glucose 112 H POC Glucose 137 H Lactic Acid Calcium 7.8 L Ferritin AST Alkaline Phosphatase Magnesium Lactate Dehydrogenase Total Creatine Kinase CK-MB (CK-2) C-Reactive Protein Total Protein Albumin Troponin T HDL Cholesterol Urine WBC (Auto) Urine Creatinine Urine Total Protein Coronavirus (PCR) Crossmatch 07/02/20 07/02/20 07/02/20 11:38 18:04 23:59 WBC RBC Hgb Hct MCHC RDW Lymph % (Auto) [place] % (Auto) Eos % (Auto) Lymph # [place] # Lymph # (Auto) [place] # (Auto) Seg Neutrophils % Seg Neuts % (Manual) Lymphocytes % (Manual) Seg Neutrophils # Seg Neutrophils # Man Lymphocytes # (Manual) Monocytes % (Manual) Eosinophils % (Manual) Monocytes # (Manual) Eosinophils # (Manual) D-Dimer Heparin Anti-Xa Level ABG pH POC ABG pCO2 POC ABG pO2 ABG pO2 ABG HCO3 ABG O2 Saturation ABG Base Excess ABG Hemoglobin ABG Oxyhemoglobin VBG pH Oxyhemoglobin Sodium Potassium Chloride Carbon Dioxide BUN Creatinine Glucose POC Glucose 128 H 135 H 156 H Lactic Acid Calcium Ferritin AST Alkaline Phosphatase Magnesium Lactate Dehydrogenase Total Creatine Kinase CK-MB (CK-2) C-Reactive Protein Total Protein Albumin Troponin T HDL Cholesterol Urine WBC (Auto) Urine Creatinine Urine Total Protein Coronavirus (PCR) Crossmatch 07/03/20 07/03/20 07/03/20 03:49 06:00 11:31 WBC RBC Hgb Hct MCHC RDW Lymph % (Auto) [place] % (Auto) Eos % (Auto) Lymph # [place] # Lymph # (Auto) [place] # (Auto) Seg Neutrophils % Seg Neuts % (Manual) Lymphocytes % (Manual) Seg Neutrophils # Seg Neutrophils # Man Lymphocytes # (Manual) Monocytes % (Manual) Eosinophils % (Manual) Monocytes # (Manual) Eosinophils # (Manual) D-Dimer Heparin Anti-Xa Level ABG pH POC ABG pCO2 POC ABG pO2 ABG pO2 121.0 H ABG HCO3 ABG O2 Saturation ABG Base Excess ABG Hemoglobin 8.5 L ABG Oxyhemoglobin VBG pH Oxyhemoglobin Sodium Potassium Chloride Carbon Dioxide BUN Creatinine Glucose POC Glucose 135 H 141 H Lactic Acid Calcium Ferritin AST Alkaline Phosphatase Magnesium Lactate Dehydrogenase Total Creatine Kinase CK-MB (CK-2) C-Reactive Protein Total Protein Albumin Troponin T HDL Cholesterol Urine WBC (Auto) Urine Creatinine Urine Total Protein Coronavirus (PCR) Crossmatch 07/03/20 07/03/20 07/04/20 16:07 17:40 05:49 WBC RBC Hgb Hct MCHC RDW Lymph % (Auto) [place] % (Auto) Eos % (Auto) Lymph # [place] # Lymph # (Auto) [place] # (Auto) Seg Neutrophils % Seg Neuts % (Manual) Lymphocytes % (Manual) Seg Neutrophils # Seg Neutrophils # Man Lymphocytes # (Manual) Monocytes % (Manual) Eosinophils % (Manual) Monocytes # (Manual) Eosinophils # (Manual) D-Dimer Heparin Anti-Xa Level ABG pH POC ABG pCO2 POC ABG pO2 ABG pO2 126.9 H ABG HCO3 ABG O2 Saturation ABG Base Excess ABG Hemoglobin 8.1 L ABG Oxyhemoglobin VBG pH Oxyhemoglobin Sodium Potassium Chloride Carbon Dioxide BUN Creatinine Glucose POC Glucose 120 H 128 H Lactic Acid Calcium Ferritin AST Alkaline Phosphatase Magnesium Lactate Dehydrogenase Total Creatine Kinase CK-MB (CK-2) C-Reactive Protein Total Protein Albumin Troponin T HDL Cholesterol Urine WBC (Auto) Urine Creatinine Urine Total Protein Coronavirus (PCR) Crossmatch 07/04/20 07/04/20 07/05/20 11:54 18:00 00:07 WBC RBC Hgb Hct MCHC RDW Lymph % (Auto) [place] % (Auto) Eos % (Auto) Lymph # [place] # Lymph # (Auto) [place] # (Auto) Seg Neutrophils % Seg Neuts % (Manual) Lymphocytes % (Manual) Seg Neutrophils # Seg Neutrophils # Man Lymphocytes # (Manual) Monocytes % (Manual) Eosinophils % (Manual) Monocytes # (Manual) Eosinophils # (Manual) D-Dimer Heparin Anti-Xa Level ABG pH POC ABG pCO2 POC ABG pO2 ABG pO2 ABG HCO3 ABG O2 Saturation ABG Base Excess ABG Hemoglobin ABG Oxyhemoglobin VBG pH Oxyhemoglobin Sodium Potassium Chloride Carbon Dioxide BUN Creatinine Glucose POC Glucose 168 H 133 H 121 H Lactic Acid Calcium Ferritin AST Alkaline Phosphatase Magnesium Lactate Dehydrogenase Total Creatine Kinase CK-MB (CK-2) C-Reactive Protein Total Protein Albumin Troponin T HDL Cholesterol Urine WBC (Auto) Urine Creatinine Urine Total Protein Coronavirus (PCR) Crossmatch 07/05/20 07/05/20 07/05/20 01:12 02:30 12:09 WBC RBC 2.35 L Hgb 6.9 L Hct 21.1 L MCHC RDW 16.8 H Lymph % (Auto) [place] % (Auto) Eos % (Auto) Lymph # [place] # Lymph # (Auto) [place] # (Auto) Seg Neutrophils % Seg Neuts % (Manual) 74.0 H Lymphocytes % (Manual) 12.0 L Seg Neutrophils # Seg Neutrophils # Man 8.0 H Lymphocytes # (Manual) Monocytes % (Manual) 9.0 H Eosinophils % (Manual) Monocytes # (Manual) 1.0 H Eosinophils # (Manual) D-Dimer Heparin Anti-Xa Level ABG pH POC ABG pCO2 POC ABG pO2 ABG pO2 ABG HCO3 ABG O2 Saturation ABG Base Excess ABG Hemoglobin ABG Oxyhemoglobin VBG pH Oxyhemoglobin Sodium Potassium Chloride Carbon Dioxide BUN Creatinine Glucose POC Glucose 132 H Lactic Acid Calcium Ferritin AST Alkaline Phosphatase Magnesium Lactate Dehydrogenase Total Creatine Kinase CK-MB (CK-2) C-Reactive Protein Total Protein Albumin Troponin T HDL Cholesterol Urine WBC (Auto) Urine Creatinine Urine Total Protein Coronavirus (PCR) Crossmatch See Detail 07/05/20 07/05/20 07/05/20 13:05 18:04 23:13 WBC RBC 2.57 L Hgb 7.7 L Hct 23.0 L MCHC RDW 16.9 H Lymph % (Auto) [place] % (Auto) Eos % (Auto) Lymph # [place] # Lymph # (Auto) [place] # (Auto) Seg Neutrophils % Seg Neuts % (Manual) Lymphocytes % (Manual) Seg Neutrophils # Seg Neutrophils # Man Lymphocytes # (Manual) Monocytes % (Manual) Eosinophils % (Manual) Monocytes # (Manual) Eosinophils # (Manual) D-Dimer Heparin Anti-Xa Level ABG pH 7.32 L POC ABG pCO2 POC ABG pO2 ABG pO2 78.3 L ABG HCO3 ABG O2 Saturation ABG Base Excess -2.6 L ABG Hemoglobin 7.3 L ABG Oxyhemoglobin VBG pH Oxyhemoglobin Sodium Potassium Chloride Carbon Dioxide BUN Creatinine Glucose POC Glucose 160 H Lactic Acid Calcium Ferritin AST Alkaline Phosphatase Magnesium Lactate Dehydrogenase Total Creatine Kinase CK-MB (CK-2) C-Reactive Protein Total Protein Albumin Troponin T HDL Cholesterol Urine WBC (Auto) Urine Creatinine Urine Total Protein Coronavirus (PCR) Crossmatch 07/05/20 07/05/20 07/06/20 23:13 23:43 13:20 WBC RBC Hgb Hct MCHC RDW Lymph % (Auto) [place] % (Auto) Eos % (Auto) Lymph # [place] # Lymph # (Auto) [place] # (Auto) Seg Neutrophils % Seg Neuts % (Manual) Lymphocytes % (Manual) Seg Neutrophils # Seg Neutrophils # Man Lymphocytes # (Manual) Monocytes % (Manual) Eosinophils % (Manual) Monocytes # (Manual) Eosinophils # (Manual) D-Dimer Heparin Anti-Xa Level ABG pH POC ABG pCO2 POC ABG pO2 ABG pO2 ABG HCO3 ABG O2 Saturation ABG Base Excess ABG Hemoglobin ABG Oxyhemoglobin VBG pH Oxyhemoglobin Sodium Potassium Chloride Carbon Dioxide 20 L BUN 80 H Creatinine 2.4 H D Glucose 124 H POC Glucose 121 H Lactic Acid Calcium 7.6 L Ferritin AST Alkaline Phosphatase Magnesium Lactate Dehydrogenase Total Creatine Kinase CK-MB (CK-2) C-Reactive Protein Total Protein Albumin Troponin T HDL Cholesterol Urine WBC (Auto) Urine Creatinine 33.3 H Urine Total Protein Coronavirus (PCR) Crossmatch 07/06/20 07/06/20 07/07/20 14:48 17:28 00:12 WBC RBC Hgb Hct MCHC RDW Lymph % (Auto) [place] % (Auto) Eos % (Auto) Lymph # [place] # Lymph # (Auto) [place] # (Auto) Seg Neutrophils % Seg Neuts % (Manual) Lymphocytes % (Manual) Seg Neutrophils # Seg Neutrophils # Man Lymphocytes # (Manual) Monocytes % (Manual) Eosinophils % (Manual) Monocytes # (Manual) Eosinophils # (Manual) D-Dimer Heparin Anti-Xa Level ABG pH POC ABG pCO2 POC ABG pO2 ABG pO2 ABG HCO3 ABG O2 Saturation ABG Base Excess ABG Hemoglobin ABG Oxyhemoglobin VBG pH Oxyhemoglobin Sodium 136 L Potassium 5.5 H Chloride Carbon Dioxide 19 L BUN 82 H Creatinine 2.5 H Glucose 113 H POC Glucose 133 H 154 H Lactic Acid Calcium 7.7 L Ferritin AST Alkaline Phosphatase Magnesium Lactate Dehydrogenase Total Creatine Kinase CK-MB (CK-2) C-Reactive Protein Total Protein Albumin Troponin T HDL Cholesterol Urine WBC (Auto) Urine Creatinine Urine Total Protein Coronavirus (PCR) Crossmatch 07/07/20 07/07/20 07/07/20 04:15 04:15 05:31 WBC RBC 2.28 L Hgb 6.8 L Hct 20.7 L MCHC RDW 16.8 H Lymph % (Auto) [place] % (Auto) Eos % (Auto) Lymph # [place] # Lymph # (Auto) [place] # (Auto) Seg Neutrophils % Seg Neuts % (Manual) Lymphocytes % (Manual) 13.0 L Seg Neutrophils # Seg Neutrophils # Man Lymphocytes # (Manual) 1.0 L Monocytes % (Manual) 11.0 H Eosinophils % (Manual) Monocytes # (Manual) 0.9 H Eosinophils # (Manual) D-Dimer Heparin Anti-Xa Level ABG pH POC ABG pCO2 POC ABG pO2 ABG pO2 ABG HCO3 ABG O2 Saturation ABG Base Excess ABG Hemoglobin ABG Oxyhemoglobin VBG pH Oxyhemoglobin Sodium Potassium Chloride Carbon Dioxide BUN Creatinine Glucose POC Glucose 135 H Lactic Acid Calcium Ferritin AST Alkaline Phosphatase Magnesium 2.50 H Lactate Dehydrogenase Total Creatine Kinase CK-MB (CK-2) C-Reactive Protein Total Protein Albumin Troponin T HDL Cholesterol Urine WBC (Auto) Urine Creatinine Urine Total Protein Coronavirus (PCR) Crossmatch 07/07/20 07/07/20 07/07/20 12:31 13:22 17:55 WBC RBC Hgb Hct MCHC RDW Lymph % (Auto) [place] % (Auto) Eos % (Auto) Lymph # [place] # Lymph # (Auto) [place] # (Auto) Seg Neutrophils % Seg Neuts % (Manual) Lymphocytes % (Manual) Seg Neutrophils # Seg Neutrophils # Man Lymphocytes # (Manual) Monocytes % (Manual) Eosinophils % (Manual) Monocytes # (Manual) Eosinophils # (Manual) D-Dimer Heparin Anti-Xa Level ABG pH POC ABG pCO2 POC ABG pO2 ABG pO2 ABG HCO3 ABG O2 Saturation ABG Base Excess ABG Hemoglobin ABG Oxyhemoglobin VBG pH Oxyhemoglobin Sodium Potassium 5.6 H Chloride Carbon Dioxide BUN 86 H Creatinine 2.9 H Glucose 127 H POC Glucose 131 H 136 H Lactic Acid Calcium 8.1 L Ferritin AST Alkaline Phosphatase Magnesium Lactate Dehydrogenase Total Creatine Kinase CK-MB (CK-2) C-Reactive Protein Total Protein Albumin Troponin T HDL Cholesterol Urine WBC (Auto) Urine Creatinine Urine Total Protein Coronavirus (PCR) Crossmatch 07/07/20 07/08/20 07/08/20 23:33 04:14 04:14 WBC RBC 3.28 L Hgb 9.7 L Hct 28.9 L D MCHC RDW 16.4 H Lymph % (Auto) 10.3 L [place] % (Auto) 10.0 H Eos % (Auto) Lymph # [place] # Lymph # (Auto) 1.1 L [place] # (Auto) 1.1 H Seg Neutrophils % 77.2 H Seg Neuts % (Manual) Lymphocytes % (Manual) Seg Neutrophils # 8.2 H Seg Neutrophils # Man Lymphocytes # (Manual) Monocytes % (Manual) Eosinophils % (Manual) Monocytes # (Manual) Eosinophils # (Manual) D-Dimer Heparin Anti-Xa Level ABG pH POC ABG pCO2 POC ABG pO2 ABG pO2 ABG HCO3 ABG O2 Saturation ABG Base Excess ABG Hemoglobin ABG Oxyhemoglobin VBG pH Oxyhemoglobin Sodium 136 L Potassium Chloride Carbon Dioxide BUN 84 H Creatinine 2.8 H Glucose 109 H POC Glucose 159 H Lactic Acid Calcium 8.1 L Ferritin AST Alkaline Phosphatase Magnesium 2.50 H Lactate Dehydrogenase Total Creatine Kinase CK-MB (CK-2) C-Reactive Protein Total Protein Albumin Troponin T HDL Cholesterol Urine WBC (Auto) Urine Creatinine Urine Total Protein Coronavirus (PCR) Crossmatch 07/08/20 07/08/20 07/08/20 12:10 18:10 23:50 WBC RBC Hgb Hct MCHC RDW Lymph % (Auto) [place] % (Auto) Eos % (Auto) Lymph # [place] # Lymph # (Auto) [place] # (Auto) Seg Neutrophils % Seg Neuts % (Manual) Lymphocytes % (Manual) Seg Neutrophils # Seg Neutrophils # Man Lymphocytes # (Manual) Monocytes % (Manual) Eosinophils % (Manual) Monocytes # (Manual) Eosinophils # (Manual) D-Dimer Heparin Anti-Xa Level ABG pH POC ABG pCO2 POC ABG pO2 ABG pO2 ABG HCO3 ABG O2 Saturation ABG Base Excess ABG Hemoglobin ABG Oxyhemoglobin VBG pH Oxyhemoglobin Sodium Potassium Chloride Carbon Dioxide BUN Creatinine Glucose POC Glucose 108 H 125 H 141 H Lactic Acid Calcium Ferritin AST Alkaline Phosphatase Magnesium Lactate Dehydrogenase Total Creatine Kinase CK-MB (CK-2) C-Reactive Protein Total Protein Albumin Troponin T HDL Cholesterol Urine WBC (Auto) Urine Creatinine Urine Total Protein Coronavirus (PCR) Crossmatch 07/09/20 07/09/20 07/09/20 05:39 11:57 17:56 WBC RBC Hgb Hct MCHC RDW Lymph % (Auto) [place] % (Auto) Eos % (Auto) Lymph # [place] # Lymph # (Auto) [place] # (Auto) Seg Neutrophils % Seg Neuts % (Manual) Lymphocytes % (Manual) Seg Neutrophils # Seg Neutrophils # Man Lymphocytes # (Manual) Monocytes % (Manual) Eosinophils % (Manual) Monocytes # (Manual) Eosinophils # (Manual) D-Dimer Heparin Anti-Xa Level ABG pH POC ABG pCO2 POC ABG pO2 ABG pO2 ABG HCO3 ABG O2 Saturation ABG Base Excess ABG Hemoglobin ABG Oxyhemoglobin VBG pH Oxyhemoglobin Sodium Potassium Chloride Carbon Dioxide BUN Creatinine Glucose POC Glucose 121 H 123 H 119 H Lactic Acid Calcium Ferritin AST Alkaline Phosphatase Magnesium Lactate Dehydrogenase Total Creatine Kinase CK-MB (CK-2) C-Reactive Protein Total Protein Albumin Troponin T HDL Cholesterol Urine WBC (Auto) Urine Creatinine Urine Total Protein Coronavirus (PCR) Crossmatch 07/10/20 07/10/20 07/10/20 00:29 05:50 10:41 WBC RBC 3.11 L Hgb 9.2 L Hct 27.6 L MCHC RDW 16.6 H Lymph % (Auto) [place] % (Auto) Eos % (Auto) Lymph # [place] # Lymph # (Auto) [place] # (Auto) Seg Neutrophils % Seg Neuts % (Manual) 78.0 H Lymphocytes % (Manual) 11.0 L Seg Neutrophils # Seg Neutrophils # Man Lymphocytes # (Manual) 1.0 L Monocytes % (Manual) Eosinophils % (Manual) Monocytes # (Manual) Eosinophils # (Manual) D-Dimer Heparin Anti-Xa Level ABG pH POC ABG pCO2 POC ABG pO2 ABG pO2 ABG HCO3 ABG O2 Saturation ABG Base Excess ABG Hemoglobin ABG Oxyhemoglobin VBG pH Oxyhemoglobin Sodium Potassium Chloride Carbon Dioxide BUN Creatinine Glucose POC Glucose 122 H 124 H Lactic Acid Calcium Ferritin AST Alkaline Phosphatase Magnesium Lactate Dehydrogenase Total Creatine Kinase CK-MB (CK-2) C-Reactive Protein Total Protein Albumin Troponin T HDL Cholesterol Urine WBC (Auto) Urine Creatinine Urine Total Protein Coronavirus (PCR) Crossmatch 07/10/20 07/10/20 07/10/20 10:41 12:25 18:10 WBC RBC Hgb Hct MCHC RDW Lymph % (Auto) [place] % (Auto) Eos % (Auto) Lymph # [place] # Lymph # (Auto) [place] # (Auto) Seg Neutrophils % Seg Neuts % (Manual) Lymphocytes % (Manual) Seg Neutrophils # Seg Neutrophils # Man Lymphocytes # (Manual) Monocytes % (Manual) Eosinophils % (Manual) Monocytes # (Manual) Eosinophils # (Manual) D-Dimer Heparin Anti-Xa Level ABG pH POC ABG pCO2 POC ABG pO2 ABG pO2 ABG HCO3 ABG O2 Saturation ABG Base Excess ABG Hemoglobin ABG Oxyhemoglobin VBG pH Oxyhemoglobin Sodium Potassium Chloride Carbon Dioxide BUN 85 H Creatinine 2.5 H Glucose 133 H POC Glucose 131 H 134 H Lactic Acid Calcium Ferritin AST Alkaline Phosphatase 131 H Magnesium Lactate Dehydrogenase Total Creatine Kinase CK-MB (CK-2) C-Reactive Protein Total Protein 5.2 L Albumin 1.6 L Troponin T HDL Cholesterol Urine WBC (Auto) Urine Creatinine Urine Total Protein Coronavirus (PCR) Crossmatch 07/11/20 07/11/20 07/11/20 00:28 05:57 12:14 WBC RBC Hgb Hct MCHC RDW Lymph % (Auto) [place] % (Auto) Eos % (Auto) Lymph # [place] # Lymph # (Auto) [place] # (Auto) Seg Neutrophils % Seg Neuts % (Manual) Lymphocytes % (Manual) Seg Neutrophils # Seg Neutrophils # Man Lymphocytes # (Manual) Monocytes % (Manual) Eosinophils % (Manual) Monocytes # (Manual) Eosinophils # (Manual) D-Dimer Heparin Anti-Xa Level ABG pH POC ABG pCO2 POC ABG pO2 ABG pO2 ABG HCO3 ABG O2 Saturation ABG Base Excess ABG Hemoglobin ABG Oxyhemoglobin VBG pH Oxyhemoglobin Sodium Potassium Chloride Carbon Dioxide BUN Creatinine Glucose POC Glucose 140 H 148 H 147 H Lactic Acid Calcium Ferritin AST Alkaline Phosphatase Magnesium Lactate Dehydrogenase Total Creatine Kinase CK-MB (CK-2) C-Reactive Protein Total Protein Albumin Troponin T HDL Cholesterol Urine WBC (Auto) Urine Creatinine Urine Total Protein Coronavirus (PCR) Crossmatch 07/11/20 07/11/20 07/12/20 17:28 23:49 05:14 WBC RBC 2.78 L Hgb 8.5 L Hct 25.3 L MCHC RDW 16.7 H Lymph % (Auto) [place] % (Auto) Eos % (Auto) Lymph # [place] # Lymph # (Auto) [place] # (Auto) Seg Neutrophils % Seg Neuts % (Manual) 81.0 H Lymphocytes % (Manual) 6.0 L Seg Neutrophils # Seg Neutrophils # Man Lymphocytes # (Manual) 0.6 L Monocytes % (Manual) 8.0 H Eosinophils % (Manual) Monocytes # (Manual) Eosinophils # (Manual) D-Dimer Heparin Anti-Xa Level ABG pH POC ABG pCO2 POC ABG pO2 ABG pO2 ABG HCO3 ABG O2 Saturation ABG Base Excess ABG Hemoglobin ABG Oxyhemoglobin VBG pH Oxyhemoglobin Sodium Potassium Chloride Carbon Dioxide BUN Creatinine Glucose POC Glucose 175 H 114 H Lactic Acid Calcium Ferritin AST Alkaline Phosphatase Magnesium Lactate Dehydrogenase Total Creatine Kinase CK-MB (CK-2) C-Reactive Protein Total Protein Albumin Troponin T HDL Cholesterol Urine WBC (Auto) Urine Creatinine Urine Total Protein Coronavirus (PCR) Crossmatch 07/12/20 07/12/20 07/12/20 05:14 05:44 11:32 WBC RBC Hgb Hct MCHC RDW Lymph % (Auto) [place] % (Auto) Eos % (Auto) Lymph # [place] # Lymph # (Auto) [place] # (Auto) Seg Neutrophils % Seg Neuts % (Manual) Lymphocytes % (Manual) Seg Neutrophils # Seg Neutrophils # Man Lymphocytes # (Manual) Monocytes % (Manual) Eosinophils % (Manual) Monocytes # (Manual) Eosinophils # (Manual) D-Dimer Heparin Anti-Xa Level ABG pH POC ABG pCO2 POC ABG pO2 ABG pO2 ABG HCO3 ABG O2 Saturation ABG Base Excess ABG Hemoglobin ABG Oxyhemoglobin VBG pH Oxyhemoglobin Sodium Potassium Chloride Carbon Dioxide BUN 79 H Creatinine 2.2 H Glucose 131 H POC Glucose 116 H 132 H Lactic Acid Calcium Ferritin AST Alkaline Phosphatase Magnesium Lactate Dehydrogenase Total Creatine Kinase CK-MB (CK-2) C-Reactive Protein Total Protein Albumin Troponin T HDL Cholesterol Urine WBC (Auto) Urine Creatinine Urine Total Protein Coronavirus (PCR) Crossmatch 07/12/20 07/13/20 07/13/20 17:53 00:18 04:53 WBC RBC 2.86 L Hgb 8.4 L Hct 25.7 L MCHC RDW 16.8 H Lymph % (Auto) [place] % (Auto) Eos % (Auto) Lymph # [place] # Lymph # (Auto) [place] # (Auto) Seg Neutrophils % Seg Neuts % (Manual) 84.0 H Lymphocytes % (Manual) 7.0 L Seg Neutrophils # Seg Neutrophils # Man Lymphocytes # (Manual) 0.6 L Monocytes % (Manual) Eosinophils % (Manual) Monocytes # (Manual) Eosinophils # (Manual) D-Dimer Heparin Anti-Xa Level ABG pH POC ABG pCO2 POC ABG pO2 ABG pO2 ABG HCO3 ABG O2 Saturation ABG Base Excess ABG Hemoglobin ABG Oxyhemoglobin VBG pH Oxyhemoglobin Sodium Potassium Chloride Carbon Dioxide BUN Creatinine Glucose POC Glucose 155 H 162 H Lactic Acid Calcium Ferritin AST Alkaline Phosphatase Magnesium Lactate Dehydrogenase Total Creatine Kinase CK-MB (CK-2) C-Reactive Protein Total Protein Albumin Troponin T HDL Cholesterol Urine WBC (Auto) Urine Creatinine Urine Total Protein Coronavirus (PCR) Crossmatch 07/13/20 07/13/20 07/13/20 04:53 06:14 12:50 WBC RBC Hgb Hct MCHC RDW Lymph % (Auto) [place] % (Auto) Eos % (Auto) Lymph # [place] # Lymph # (Auto) [place] # (Auto) Seg Neutrophils % Seg Neuts % (Manual) Lymphocytes % (Manual) Seg Neutrophils # Seg Neutrophils # Man Lymphocytes # (Manual) Monocytes % (Manual) Eosinophils % (Manual) Monocytes # (Manual) Eosinophils # (Manual) D-Dimer Heparin Anti-Xa Level ABG pH POC ABG pCO2 POC ABG pO2 ABG pO2 ABG HCO3 ABG O2 Saturation ABG Base Excess ABG Hemoglobin ABG Oxyhemoglobin VBG pH Oxyhemoglobin Sodium 136 L Potassium Chloride Carbon Dioxide BUN 78 H Creatinine 2.0 H Glucose 130 H POC Glucose 141 H 146 H Lactic Acid Calcium Ferritin AST Alkaline Phosphatase Magnesium Lactate Dehydrogenase Total Creatine Kinase CK-MB (CK-2) C-Reactive Protein Total Protein Albumin Troponin T HDL Cholesterol Urine WBC (Auto) Urine Creatinine Urine Total Protein Coronavirus (PCR) Crossmatch 07/13/20 07/14/20 07/14/20 18:27 00:22 05:43 WBC RBC Hgb Hct MCHC RDW Lymph % (Auto) [place] % (Auto) Eos % (Auto) Lymph # [place] # Lymph # (Auto) [place] # (Auto) Seg Neutrophils % Seg Neuts % (Manual) Lymphocytes % (Manual) Seg Neutrophils # Seg Neutrophils # Man Lymphocytes # (Manual) Monocytes % (Manual) Eosinophils % (Manual) Monocytes # (Manual) Eosinophils # (Manual) D-Dimer Heparin Anti-Xa Level ABG pH POC ABG pCO2 POC ABG pO2 ABG pO2 ABG HCO3 ABG O2 Saturation ABG Base Excess ABG Hemoglobin ABG Oxyhemoglobin VBG pH Oxyhemoglobin Sodium Potassium Chloride Carbon Dioxide BUN Creatinine Glucose POC Glucose 149 H 157 H 169 H Lactic Acid Calcium Ferritin AST Alkaline Phosphatase Magnesium Lactate Dehydrogenase Total Creatine Kinase CK-MB (CK-2) C-Reactive Protein Total Protein Albumin Troponin T HDL Cholesterol Urine WBC (Auto) Urine Creatinine Urine Total Protein Coronavirus (PCR) Crossmatch Allied health notes reviewed: nursing
[2020-07-14] MEDS: INSULIN GLARGINE 100 UNITS/ML SUB-Q SCH (22:45)
[2020-07-15] MEDS: SENNOSIDES ORAL LIQD 8.8 MG/5 ML ORAL LIQD FEEDTUBE SCH ×3 (00:59→21:53)
[2020-07-15] MEDS: INSULIN LISPRO 100 UNIT/ML VIAL 3 mL SUB-Q SCH ×4 (01:00→18:50)
[2020-07-15] MEDS: HEPARIN 5,000 UNIT/1 ML VIAL SUB-Q SCH ×3 (06:34→21:54)
[2020-07-15] MEDS: hydrALAZINE 100 MG TAB PO SCH ×3 (07:47→21:52)
[2020-07-15] MEDS: GLYCOPYRROLATE 2 MG TAB PO SCH ×3 (07:47→21:52)
--- NOTE | 2020-07-15 10:01 | Event Note ---
Date: 07/15/20 Patient's chart reviewed. Repeat COVID testing on 07/14/2020 is POSITIVE. Trach and PEG placement will need to be delayed until a negative test is obtained. Recommend repeating test in 2 weeks. Will update patient's family.
[2020-07-15] MEDS: carvediloL 12.5 MG TAB PO SCH ×2 (11:15→22:00)
[2020-07-15] MEDS: levETIRAcetam 500 MG/5 ML ORAL LIQD PO SCH ×2 (11:15→21:53)
--- NOTE | 2020-07-15 11:26 | Progress Note ---
Assessment and Plan Cardiopulmoanry arrest 06/26/2020 with ROSC Acute hypoxemic respiratory failure , extubated now re-intubated Anemia s/p PRBC Severe COVID infection Multifocal pneumonia Morbid obesity Acute toxic metabolic encephalopathy AVANI secondary to COVID/vasomotor nephropathy Bilateral pulmonary edema. Bilateral pleural effusions. History of congestive heart failure. History of pulmonary hypertension. History of hypertension. Diabetes. Obesity hypoventilation syndrome. Oropharyngeal dysphagia. Trend temperature curve and WCC Daily SBTs as tolerated, her mental staus precludes liberation from MVS Trach and PEG , General surgery consult- plan for later this week if COVID negative Continue to avoid nephrotoxins, closely monitor renal function, dose all medications for renal function Get BMP today COVID positive, trach on hold Neurology consult for evaluation of encephalopathy- family want definite n eurological prognosis Supportive transfusions as indicated - VAP bundle addressed -Aspiration precautions, HOB >40 -lung protective strategies-ARDS. net - continue bronchodilators with pulmonary hygiene per RT - wean per pulmonary driven protocols otherwise - continue to avoid benzodiazepines, reduce the possibility of delirium - prn analgesia per CPOT score - Continue to wean supplemental oxygen for target O2 sats > 92% -Continue to hold sedation, if needed intermittent dosing - conservative fluid management measures as tolerated by hemodynamics and renal function - Bronchodilators with pulmonary hygiene per RT - Accuchecks with glycemic control per SSI (While critically ill target blood glucose of 140-180 mg/dL; avoid hypoglycemia) - Maintenance of sleep-wake cycle, avoid delirium - Aspiration precautions, HOB >40 - Stress ulcer prophylaxis -Famotidine - Mobility protocol, off loading and skin assessment for pressure ulcer prevention - Supportive transfusions as indicated to keep HgB >7g/dL COVID SPECIFIC INTERVENTIONS -Airborne, contact isolation for COVID per facility protocols - s/p Remdesivir -IV steroids-Dexamethasone -Trend d-dimer,and other inflammatory markers per facility protocol -Convalescent plasma therapy per facility protocol -Continue all supportive care Discussed with the ICU team-RT,RN, Clinical Pharmacist, Case management Life threatening condition- Cardiopulmonary arrest with ROSC, Sepsis ;COVID 19 acute hypoxemic respiratory failure on MVS Mortality/Morbidity- High Complexity of medical decision making- High CONDITION: CRITICAL PROGNOSIS: GUARDED CODE STATUS: FULL CODE The high probability of a clinically significant, sudden or life-threatening deterioration of the [respiratory & neurology, renal ] system(s) required my f ull and direct attention, intervention and personal management. The aggregate critical care time was [32] minutes without overlap. Time includes spent on; [x] Data Review and interpretation [x] Patient assessment and monitoring of vital signs [x] Documentation [x] Medication orders and management Subjective Date of service: 07/15/20 Principal diagnosis: Ac hypoxemic resp failure; COVID-19; pneumonia; CHF; Pulm HTN; OHS; DM II Interval history: Patient is seen today for: Ac hypoxemic resp failure s/p Cardiopulmonary arrest with ROSC; Coronavirus-19 infection; pneumonia; Pulmonary edema; Bilateral pleural effusions; CHF; Morbid obesity; pulmonary hypertension; OHS; DM II Seen and examined at bedside; 24hour events reviewed; nursing and respiratory care staff consulted; Vitals, labs,medications, chart reviewed. Remains on MVS, no fevers, Tolerating PS trials 10/+5 with full support at night Mental status changes persist, but grimaces to pain and will open her eyes with sternal rub Tolerating tube feedings, No adverse overnight events Trach on hold secondary to recent positive COVID testing Objective Vital Signs - 12hr 07/14/20 07/14/20 07/15/20 23:30 23:58 00:00 Temperature 98.8 F Pulse Rate 77 75 79 Pulse Rate [ 73 From Monitor] Respiratory 16 15 Rate Blood Pressure 171/72 171/72 169/82 O2 Sat by Pulse 99 99 98 Oximetry 07/15/20 07/15/20 07/15/20 00:30 01:00 01:30 Temperature Pulse Rate 78 77 76 Pulse Rate [ From Monitor] Respiratory 14 15 15 Rate Blood Pressure 168/71 164/80 164/87 O2 Sat by Pulse 99 99 99 Oximetry 07/15/20 07/15/20 07/15/20 02:00 02:30 03:00 Temperature Pulse Rate 75 72 76 Pulse Rate [ From Monitor] Respiratory 15 10 L 16 Rate Blood Pressure 165/68 159/64 162/65 O2 Sat by Pulse 98 99 99 Oximetry 07/15/20 07/15/20 07/15/20 03:30 04:00 04:30 Temperature 98.9 F Pulse Rate 67 77 74 Pulse Rate [ 70 From Monitor] Respiratory 14 18 16 Rate Blood Pressure 156/60 166/67 151/64 O2 Sat by Pulse 99 98 100 Oximetry 07/15/20 07/15/20 07/15/20 05:00 05:03 05:30 Temperature Pulse Rate 71 70 70 Pulse Rate [ From Monitor] Respiratory 14 13 Rate Blood Pressure 151/63 151/63 146/64 O2 Sat by Pulse 100 100 100 Oximetry 07/15/20 07/15/20 07/15/20 06:00 06:30 07:00 Temperature Pulse Rate 68 74 73 Pulse Rate [ From Monitor] Respiratory 13 16 16 Rate Blood Pressure 145/60 164/66 159/64 O2 Sat by Pulse 100 100 100 Oximetry 07/15/20 07/15/20 07/15/20 07:30 08:00 08:30 Temperature 98.5 F Pulse Rate 71 74 74 Pulse Rate [ From Monitor] Respiratory 15 16 15 Rate Blood Pressure 153/61 157/64 160/70 O2 Sat by Pulse 100 100 100 Oximetry 07/15/20 07/15/20 07/15/20 09:00 09:07 09:30 Temperature Pulse Rate 72 76 73 Pulse Rate [ From Monitor] Respiratory 13 21 16 Rate Blood Pressure 158/67 158/67 157/60 O2 Sat by Pulse 99 100 98 Oximetry 07/15/20 07/15/20 07/15/20 10:00 10:30 11:00 Temperature Pulse Rate 77 79 77 Pulse Rate [ From Monitor] Respiratory 22 24 17 Rate Blood Pressure 146/55 155/70 160/64 O2 Sat by Pulse 98 99 98 Oximetry 07/15/20 11:15 Temperature Pulse Rate 77 Pulse Rate [ From Monitor] Respiratory Rate Blood Pressure 160/64 O2 Sat by Pulse Oximetry Constitutional: no acute distress, other (elderly looking obese female on HFNC with mildly increased respiratory effort at rest on MVS) Eyes: non-icteric ENT: oropharynx dry, other (ETT 23-24 cm AYAN) Neck: supple, no lymphadenopathy, no JVD, other (large neck circumference) Effort: mildly labored Ascultation: Bilateral: clear, diminished breath sounds, rales, rhonchi (scant) Percussion: Bilateral: not dull Cardiovascular: regular rate and rhythm, other (S1,S2) Gastrointestinal: normoactive bowel sounds, soft, non-tender, non-distended Integumentary: normal Extremities: no cyanosis, no edema, pink and warm, pulses normal, no ischemia or petechiae Neurologic: pupils equal and round, unable to assess, other (minimally responsive) Psychiatric: other (unable to assess re: AMS) CBC and BMP: 07/13/20 04:53 07/13/20 04:53 ABG, PT/INR, D-dimer: ABG ABG pH 7.32 pH Units (7.350-7.450) L 07/05/20 13:05 POC ABG pCO2 35.8 mmHg (32.0-48.0) 07/01/20 05:02 ABG pCO2 47.0 mm Hg 07/05/20 13:05 POC ABG pO2 90.8 mmHg (83-108) 07/01/20 05:02 ABG pO2 78.3 mm Hg (80.0-90.0) L 07/05/20 13:05 POC ABG HCO3 22.1 07/01/20 05:02 ABG O2 Saturation 96.1 % (95.0-99.0) 07/05/20 13:05 PT/INR, D-dimer PT 14.2 Sec. (12.2-14.9) 05/29/20 15:10 INR 1.08 (0.87-1.13) 05/29/20 15:10 D-Dimer 2310.15 ng/mlDDU (0-234) H 06/29/20 14:45 Abnormal lab findings: Abnormal Labs 05/28/20 05/28/20 05/28/20 13:29 13:47 13:47 WBC RBC Hgb Hct MCHC RDW 15.3 H Lymph % (Auto) [place] % (Auto) Eos % (Auto) Lymph # [place] # Lymph # (Auto) [place] # (Auto) Seg Neutrophils % Seg Neuts % (Manual) Lymphocytes % (Manual) Seg Neutrophils # Seg Neutrophils # Man Lymphocytes # (Manual) Monocytes % (Manual) Eosinophils % (Manual) Monocytes # (Manual) Eosinophils # (Manual) D-Dimer Heparin Anti-Xa Level ABG pH POC ABG pCO2 POC ABG pO2 ABG pO2 ABG HCO3 ABG O2 Saturation ABG Base Excess ABG Hemoglobin ABG Oxyhemoglobin VBG pH Oxyhemoglobin Sodium Potassium 6.6 H* Chloride 109.2 H Carbon Dioxide 17 L BUN 29 H Creatinine 1.3 H Glucose 265 H POC Glucose 248 H Lactic Acid Calcium 8.1 L Ferritin AST 63 H Alkaline Phosphatase Magnesium Lactate Dehydrogenase Total Creatine Kinase 301 H CK-MB (CK-2) 4.3 H C-Reactive Protein Total Protein 5.4 L Albumin 2.6 L Troponin T HDL Cholesterol Urine WBC (Auto) Urine Creatinine Urine Total Protein Coronavirus (PCR) Crossmatch 05/28/20 05/28/20 05/28/20 13:47 13:47 14:46 WBC RBC Hgb Hct MCHC RDW Lymph % (Auto) [place] % (Auto) Eos % (Auto) Lymph # [place] # Lymph # (Auto) [place] # (Auto) Seg Neutrophils % Seg Neuts % (Manual) Lymphocytes % (Manual) Seg Neutrophils # Seg Neutrophils # Man Lymphocytes # (Manual) Monocytes % (Manual) Eosinophils % (Manual) Monocytes # (Manual) Eosinophils # (Manual) D-Dimer Heparin Anti-Xa Level ABG pH POC ABG pCO2 POC ABG pO2 ABG pO2 ABG HCO3 ABG O2 Saturation ABG Base Excess ABG Hemoglobin ABG Oxyhemoglobin VBG pH 7.152 L* Oxyhemoglobin Sodium Potassium 7.2 H* Chloride Carbon Dioxide BUN Creatinine Glucose POC Glucose Lactic Acid 3.40 H* Calcium Ferritin AST Alkaline Phosphatase Magnesium Lactate Dehydrogenase Total Creatine Kinase CK-MB (CK-2) C-Reactive Protein Total Protein Albumin Troponin T HDL Cholesterol Urine WBC (Auto) Urine Creatinine Urine Total Protein Coronavirus (PCR) Crossmatch 05/28/20 05/28/20 05/28/20 15:33 15:33 15:51 WBC RBC Hgb Hct MCHC RDW Lymph % (Auto) [place] % (Auto) Eos % (Auto) Lymph # [place] # Lymph # (Auto) [place] # (Auto) Seg Neutrophils % Seg Neuts % (Manual) Lymphocytes % (Manual) Seg Neutrophils # Seg Neutrophils # Man Lymphocytes # (Manual) Monocytes % (Manual) Eosinophils % (Manual) Monocytes # (Manual) Eosinophils # (Manual) D-Dimer 8780.43 H Heparin Anti-Xa Level ABG pH 7.284 L POC ABG pCO2 POC ABG pO2 ABG pO2 273.0 H ABG HCO3 ABG O2 Saturation 99.4 H ABG Base Excess -6.1 L ABG Hemoglobin 17.2 H ABG Oxyhemoglobin VBG pH Oxyhemoglobin Sodium Potassium Chloride Carbon Dioxide BUN Creatinine Glucose 152 H POC Glucose Lactic Acid Calcium Ferritin AST Alkaline Phosphatase Magnesium Lactate Dehydrogenase 365 H Total Creatine Kinase CK-MB (CK-2) C-Reactive Protein Total Protein Albumin Troponin T HDL Cholesterol Urine WBC (Auto) Urine Creatinine Urine Total Protein Coronavirus (PCR) Crossmatch 05/28/20 05/28/20 05/28/20 16:30 20:41 23:20 WBC RBC Hgb Hct MCHC RDW Lymph % (Auto) [place] % (Auto) Eos % (Auto) Lymph # [place] # Lymph # (Auto) [place] # (Auto) Seg Neutrophils % Seg Neuts % (Manual) Lymphocytes % (Manual) Seg Neutrophils # Seg Neutrophils # Man Lymphocytes # (Manual) Monocytes % (Manual) Eosinophils % (Manual) Monocytes # (Manual) Eosinophils # (Manual) D-Dimer Heparin Anti-Xa Level ABG pH POC ABG pCO2 POC ABG pO2 ABG pO2 ABG HCO3 ABG O2 Saturation ABG Base Excess ABG Hemoglobin ABG Oxyhemoglobin VBG pH Oxyhemoglobin Sodium Potassium Chloride Carbon Dioxide BUN Creatinine Glucose POC Glucose 225 H 224 H Lactic Acid Calcium Ferritin AST Alkaline Phosphatase Magnesium Lactate Dehydrogenase Total Creatine Kinase CK-MB (CK-2) C-Reactive Protein Total Protein Albumin Troponin T HDL Cholesterol Urine WBC (Auto) 17.0 H Urine Creatinine Urine Total Protein Coronavirus (PCR) Crossmatch 05/28/20 05/29/20 05/29/20 Unknown 04:35 04:43 WBC RBC 3.48 L Hgb 9.8 L Hct 29.4 L MCHC RDW 16.0 H Lymph % (Auto) 7.4 L [place] % (Auto) Eos % (Auto) Lymph # 0.7 L [place] # Lymph # (Auto) [place] # (Auto) Seg Neutrophils % 89.1 H Seg Neuts % (Manual) Lymphocytes % (Manual) Seg Neutrophils # 8.1 H Seg Neutrophils # Man Lymphocytes # (Manual) Monocytes % (Manual) Eosinophils % (Manual) Monocytes # (Manual) Eosinophils # (Manual) D-Dimer Heparin Anti-Xa Level ABG pH POC ABG pCO2 POC ABG pO2 ABG pO2 ABG HCO3 19.3 L ABG O2 Saturation ABG Base Excess -4.5 L ABG Hemoglobin 9.7 L ABG Oxyhemoglobin VBG pH Oxyhemoglobin Sodium Potassium Chloride Carbon Dioxide BUN Creatinine Glucose POC Glucose Lactic Acid Calcium Ferritin AST Alkaline Phosphatase Magnesium Lactate Dehydrogenase Total Creatine Kinase CK-MB (CK-2) C-Reactive Protein Total Protein Albumin Troponin T HDL Cholesterol Urine WBC (Auto) Urine Creatinine Urine Total Protein Coronavirus (PCR) Positive A Crossmatch 05/29/20 05/29/20 05/29/20 04:43 15:10 17:17 WBC RBC Hgb 9.3 L Hct 28.7 L MCHC RDW Lymph % (Auto) [place] % (Auto) Eos % (Auto) Lymph # [place] # Lymph # (Auto) [place] # (Auto) Seg Neutrophils % Seg Neuts % (Manual) Lymphocytes % (Manual) Seg Neutrophils # Seg Neutrophils # Man Lymphocytes # (Manual) Monocytes % (Manual) Eosinophils % (Manual) Monocytes # (Manual) Eosinophils # (Manual) D-Dimer Heparin Anti-Xa Level ABG pH POC ABG pCO2 POC ABG pO2 ABG pO2 ABG HCO3 ABG O2 Saturation ABG Base Excess ABG Hemoglobin ABG Oxyhemoglobin VBG pH Oxyhemoglobin Sodium Potassium Chloride 110.2 H Carbon Dioxide 18 L BUN 32 H Creatinine 1.4 H Glucose 180 H POC Glucose 147 H Lactic Acid Calcium Ferritin AST Alkaline Phosphatase Magnesium Lactate Dehydrogenase Total Creatine Kinase CK-MB (CK-2) C-Reactive Protein Total Protein Albumin Troponin T HDL Cholesterol Urine WBC (Auto) Urine Creatinine Urine Total Protein Coronavirus (PCR) Crossmatch 05/30/20 05/30/20 05/30/20 00:08 00:12 04:15 WBC RBC Hgb Hct MCHC RDW Lymph % (Auto) [place] % (Auto) Eos % (Auto) Lymph # [place] # Lymph # (Auto) [place] # (Auto) Seg Neutrophils % Seg Neuts % (Manual) Lymphocytes % (Manual) Seg Neutrophils # Seg Neutrophils # Man Lymphocytes # (Manual) Monocytes % (Manual) Eosinophils % (Manual) Monocytes # (Manual) Eosinophils # (Manual) D-Dimer Heparin Anti-Xa Level 0.71 H ABG pH 7.460 H POC ABG pCO2 POC ABG pO2 ABG pO2 106.0 H ABG HCO3 18.9 L ABG O2 Saturation ABG Base Excess -4.4 L ABG Hemoglobin 6.8 L ABG Oxyhemoglobin VBG pH Oxyhemoglobin Sodium Potassium Chloride Carbon Dioxide BUN Creatinine Glucose POC Glucose 195 H Lactic Acid Calcium Ferritin AST Alkaline Phosphatase Magnesium Lactate Dehydrogenase Total Creatine Kinase CK-MB (CK-2) C-Reactive Protein Total Protein Albumin Troponin T HDL Cholesterol Urine WBC (Auto) Urine Creatinine Urine Total Protein Coronavirus (PCR) Crossmatch 05/30/20 05/30/20 05/30/20 06:07 08:37 12:33 WBC RBC Hgb Hct MCHC RDW Lymph % (Auto) [place] % (Auto) Eos % (Auto) Lymph # [place] # Lymph # (Auto) [place] # (Auto) Seg Neutrophils % Seg Neuts % (Manual) Lymphocytes % (Manual) Seg Neutrophils # Seg Neutrophils # Man Lymphocytes # (Manual) Monocytes % (Manual) Eosinophils % (Manual) Monocytes # (Manual) Eosinophils # (Manual) D-Dimer Heparin Anti-Xa Level 0.85 H ABG pH POC ABG pCO2 POC ABG pO2 ABG pO2 ABG HCO3 ABG O2 Saturation ABG Base Excess ABG Hemoglobin ABG Oxyhemoglobin VBG pH Oxyhemoglobin Sodium Potassium Chloride Carbon Dioxide BUN Creatinine Glucose POC Glucose 182 H 187 H Lactic Acid Calcium Ferritin AST Alkaline Phosphatase Magnesium Lactate Dehydrogenase Total Creatine Kinase CK-MB (CK-2) C-Reactive Protein Total Protein Albumin Troponin T HDL Cholesterol Urine WBC (Auto) Urine Creatinine Urine Total Protein Coronavirus (PCR) Crossmatch 05/30/20 05/30/20 05/30/20 15:58 17:57 23:36 WBC RBC Hgb Hct MCHC RDW Lymph % (Auto) [place] % (Auto) Eos % (Auto) Lymph # [place] # Lymph # (Auto) [place] # (Auto) Seg Neutrophils % Seg Neuts % (Manual) Lymphocytes % (Manual) Seg Neutrophils # Seg Neutrophils # Man Lymphocytes # (Manual) Monocytes % (Manual) Eosinophils % (Manual) Monocytes # (Manual) Eosinophils # (Manual) D-Dimer Heparin Anti-Xa Level 1.03 H ABG pH POC ABG pCO2 POC ABG pO2 ABG pO2 ABG HCO3 ABG O2 Saturation ABG Base Excess ABG Hemoglobin ABG Oxyhemoglobin VBG pH Oxyhemoglobin Sodium Potassium Chloride Carbon Dioxide BUN Creatinine Glucose POC Glucose 208 H 185 H Lactic Acid Calcium Ferritin AST Alkaline Phosphatase Magnesium Lactate Dehydrogenase Total Creatine Kinase CK-MB (CK-2) C-Reactive Protein Total Protein Albumin Troponin T HDL Cholesterol Urine WBC (Auto) Urine Creatinine Urine Total Protein Coronavirus (PCR) Crossmatch 05/31/20 05/31/20 05/31/20 02:16 03:55 06:16 WBC RBC Hgb 9.2 L Hct 27.5 L MCHC RDW Lymph % (Auto) [place] % (Auto) Eos % (Auto) Lymph # [place] # Lymph # (Auto) [place] # (Auto) Seg Neutrophils % Seg Neuts % (Manual) Lymphocytes % (Manual) Seg Neutrophils # Seg Neutrophils # Man Lymphocytes # (Manual) Monocytes % (Manual) Eosinophils % (Manual) Monocytes # (Manual) Eosinophils # (Manual) D-Dimer Heparin Anti-Xa Level ABG pH POC ABG pCO2 POC ABG pO2 ABG pO2 94.7 H ABG HCO3 18.6 L ABG O2 Saturation ABG Base Excess -5.5 L ABG Hemoglobin 7.9 L ABG Oxyhemoglobin VBG pH Oxyhemoglobin Sodium Potassium Chloride Carbon Dioxide BUN Creatinine Glucose POC Glucose 160 H Lactic Acid Calcium Ferritin AST Alkaline Phosphatase Magnesium Lactate Dehydrogenase Total Creatine Kinase CK-MB (CK-2) C-Reactive Protein Total Protein Albumin Troponin T HDL Cholesterol Urine WBC (Auto) Urine Creatinine Urine Total Protein Coronavirus (PCR) Crossmatch 05/31/20 05/31/20 05/31/20 12:20 13:03 18:13 WBC RBC Hgb Hct MCHC RDW Lymph % (Auto) [place] % (Auto) Eos % (Auto) Lymph # [place] # Lymph # (Auto) [place] # (Auto) Seg Neutrophils % Seg Neuts % (Manual) Lymphocytes % (Manual) Seg Neutrophils # Seg Neutrophils # Man Lymphocytes # (Manual) Monocytes % (Manual) Eosinophils % (Manual) Monocytes # (Manual) Eosinophils # (Manual) D-Dimer Heparin Anti-Xa Level ABG pH POC ABG pCO2 POC ABG pO2 ABG pO2 ABG HCO3 ABG O2 Saturation ABG Base Excess ABG Hemoglobin ABG Oxyhemoglobin VBG pH Oxyhemoglobin Sodium Potassium Chloride Carbon Dioxide 18 L BUN 48 H Creatinine 1.6 H Glucose 115 H POC Glucose 128 H 159 H Lactic Acid Calcium 8.3 L Ferritin AST Alkaline Phosphatase Magnesium Lactate Dehydrogenase Total Creatine Kinase CK-MB (CK-2) C-Reactive Protein Total Protein 5.4 L Albumin 2.4 L Troponin T HDL Cholesterol Urine WBC (Auto) Urine Creatinine Urine Total Protein Coronavirus (PCR) Crossmatch 05/31/20 06/01/20 06/01/20 23:51 04:00 05:48 WBC RBC Hgb Hct MCHC RDW Lymph % (Auto) [place] % (Auto) Eos % (Auto) Lymph # [place] # Lymph # (Auto) [place] # (Auto) Seg Neutrophils % Seg Neuts % (Manual) Lymphocytes % (Manual) Seg Neutrophils # Seg Neutrophils # Man Lymphocytes # (Manual) Monocytes % (Manual) Eosinophils % (Manual) Monocytes # (Manual) Eosinophils # (Manual) D-Dimer Heparin Anti-Xa Level ABG pH POC ABG pCO2 POC ABG pO2 ABG pO2 109.8 H ABG HCO3 18.8 L ABG O2 Saturation ABG Base Excess -5.9 L ABG Hemoglobin 7.8 L ABG Oxyhemoglobin VBG pH Oxyhemoglobin Sodium Potassium Chloride Carbon Dioxide BUN Creatinine Glucose POC Glucose 171 H 133 H Lactic Acid Calcium Ferritin AST Alkaline Phosphatase Magnesium Lactate Dehydrogenase Total Creatine Kinase CK-MB (CK-2) C-Reactive Protein Total Protein Albumin Troponin T HDL Cholesterol Urine WBC (Auto) Urine Creatinine Urine Total Protein Coronavirus (PCR) Crossmatch 06/01/20 06/01/20 06/02/20 12:28 17:29 00:08 WBC RBC Hgb Hct MCHC RDW Lymph % (Auto) [place] % (Auto) Eos % (Auto) Lymph # [place] # Lymph # (Auto) [place] # (Auto) Seg Neutrophils % Seg Neuts % (Manual) Lymphocytes % (Manual) Seg Neutrophils # Seg Neutrophils # Man Lymphocytes # (Manual) Monocytes % (Manual) Eosinophils % (Manual) Monocytes # (Manual) Eosinophils # (Manual) D-Dimer Heparin Anti-Xa Level ABG pH POC ABG pCO2 POC ABG pO2 ABG pO2 ABG HCO3 ABG O2 Saturation ABG Base Excess ABG Hemoglobin ABG Oxyhemoglobin VBG pH Oxyhemoglobin Sodium Potassium Chloride Carbon Dioxide BUN Creatinine Glucose POC Glucose 199 H 209 H 162 H Lactic Acid Calcium Ferritin AST Alkaline Phosphatase Magnesium Lactate Dehydrogenase Total Creatine Kinase CK-MB (CK-2) C-Reactive Protein Total Protein Albumin Troponin T HDL Cholesterol Urine WBC (Auto) Urine Creatinine Urine Total Protein Coronavirus (PCR) Crossmatch 06/02/20 06/02/20 06/02/20 04:20 04:20 04:44 WBC RBC Hgb 10.0 L Hct MCHC RDW Lymph % (Auto) [place] % (Auto) Eos % (Auto) Lymph # [place] # Lymph # (Auto) [place] # (Auto) Seg Neutrophils % Seg Neuts % (Manual) Lymphocytes % (Manual) Seg Neutrophils # Seg Neutrophils # Man Lymphocytes # (Manual) Monocytes % (Manual) Eosinophils % (Manual) Monocytes # (Manual) Eosinophils # (Manual) D-Dimer Heparin Anti-Xa Level 0.10 L ABG pH POC ABG pCO2 POC ABG pO2 ABG pO2 150.6 H ABG HCO3 ABG O2 Saturation ABG Base Excess -4.1 L ABG Hemoglobin 11.8 L ABG Oxyhemoglobin VBG pH Oxyhemoglobin Sodium Potassium Chloride Carbon Dioxide BUN Creatinine Glucose POC Glucose Lactic Acid Calcium Ferritin AST Alkaline Phosphatase Magnesium Lactate Dehydrogenase Total Creatine Kinase CK-MB (CK-2) C-Reactive Protein Total Protein Albumin Troponin T HDL Cholesterol Urine WBC (Auto) Urine Creatinine Urine Total Protein Coronavirus (PCR) Crossmatch 06/02/20 06/02/20 06/02/20 05:53 12:04 13:49 WBC RBC Hgb Hct MCHC RDW Lymph % (Auto) [place] % (Auto) Eos % (Auto) Lymph # [place] # Lymph # (Auto) [place] # (Auto) Seg Neutrophils % Seg Neuts % (Manual) Lymphocytes % (Manual) Seg Neutrophils # Seg Neutrophils # Man Lymphocytes # (Manual) Monocytes % (Manual) Eosinophils % (Manual) Monocytes # (Manual) Eosinophils # (Manual) D-Dimer Heparin Anti-Xa Level 0.28 L ABG pH POC ABG pCO2 POC ABG pO2 ABG pO2 ABG HCO3 ABG O2 Saturation ABG Base Excess ABG Hemoglobin ABG Oxyhemoglobin VBG pH Oxyhemoglobin Sodium Potassium Chloride Carbon Dioxide BUN Creatinine Glucose POC Glucose 149 H 220 H Lactic Acid Calcium Ferritin AST Alkaline Phosphatase Magnesium Lactate Dehydrogenase Total Creatine Kinase CK-MB (CK-2) C-Reactive Protein Total Protein Albumin Troponin T HDL Cholesterol Urine WBC (Auto) Urine Creatinine Urine Total Protein Coronavirus (PCR) Crossmatch 06/02/20 06/02/20 06/03/20 13:49 18:31 00:42 WBC RBC Hgb Hct MCHC RDW Lymph % (Auto) [place] % (Auto) Eos % (Auto) Lymph # [place] # Lymph # (Auto) [place] # (Auto) Seg Neutrophils % Seg Neuts % (Manual) Lymphocytes % (Manual) Seg Neutrophils # Seg Neutrophils # Man Lymphocytes # (Manual) Monocytes % (Manual) Eosinophils % (Manual) Monocytes # (Manual) Eosinophils # (Manual) D-Dimer 769.68 H Heparin Anti-Xa Level ABG pH POC ABG pCO2 POC ABG pO2 ABG pO2 ABG HCO3 ABG O2 Saturation ABG Base Excess ABG Hemoglobin ABG Oxyhemoglobin VBG pH Oxyhemoglobin Sodium Potassium Chloride Carbon Dioxide BUN Creatinine Glucose POC Glucose 225 H 212 H Lactic Acid Calcium Ferritin AST Alkaline Phosphatase Magnesium Lactate Dehydrogenase Total Creatine Kinase CK-MB (CK-2) C-Reactive Protein Total Protein Albumin Troponin T HDL Cholesterol Urine WBC (Auto) Urine Creatinine Urine Total Protein Coronavirus (PCR) Crossmatch 06/03/20 06/03/20 06/03/20 05:16 05:16 05:25 WBC 11.4 H RBC Hgb Hct MCHC RDW 16.4 H Lymph % (Auto) [place] % (Auto) Eos % (Auto) Lymph # [place] # Lymph # (Auto) [place] # (Auto) Seg Neutrophils % Seg Neuts % (Manual) Lymphocytes % (Manual) Seg Neutrophils # Seg Neutrophils # Man Lymphocytes # (Manual) Monocytes % (Manual) Eosinophils % (Manual) Monocytes # (Manual) Eosinophils # (Manual) D-Dimer Heparin Anti-Xa Level ABG pH POC ABG pCO2 POC ABG pO2 ABG pO2 160.9 H ABG HCO3 19.4 L ABG O2 Saturation ABG Base Excess -4.9 L ABG Hemoglobin 7.0 L ABG Oxyhemoglobin VBG pH Oxyhemoglobin Sodium Potassium Chloride Carbon Dioxide 18 L BUN 65 H Creatinine 2.0 H Glucose 175 H POC Glucose Lactic Acid Calcium 8.0 L Ferritin AST Alkaline Phosphatase Magnesium Lactate Dehydrogenase Total Creatine Kinase CK-MB (CK-2) C-Reactive Protein Total Protein 5.5 L Albumin 2.2 L Troponin T HDL Cholesterol Urine WBC (Auto) Urine Creatinine Urine Total Protein Coronavirus (PCR) Crossmatch 06/03/20 06/03/20 06/03/20 06:07 11:58 18:24 WBC RBC Hgb Hct MCHC RDW Lymph % (Auto) [place] % (Auto) Eos % (Auto) Lymph # [place] # Lymph # (Auto) [place] # (Auto) Seg Neutrophils % Seg Neuts % (Manual) Lymphocytes % (Manual) Seg Neutrophils # Seg Neutrophils # Man Lymphocytes # (Manual) Monocytes % (Manual) Eosinophils % (Manual) Monocytes # (Manual) Eosinophils # (Manual) D-Dimer Heparin Anti-Xa Level ABG pH POC ABG pCO2 POC ABG pO2 ABG pO2 ABG HCO3 ABG O2 Saturation ABG Base Excess ABG Hemoglobin ABG Oxyhemoglobin VBG pH Oxyhemoglobin Sodium Potassium Chloride Carbon Dioxide BUN Creatinine Glucose POC Glucose 177 H 163 H 211 H Lactic Acid Calcium Ferritin AST Alkaline Phosphatase Magnesium Lactate Dehydrogenase Total Creatine Kinase CK-MB (CK-2) C-Reactive Protein Total Protein Albumin Troponin T HDL Cholesterol Urine WBC (Auto) Urine Creatinine Urine Total Protein Coronavirus (PCR) Crossmatch 06/03/20 06/03/20 06/04/20 21:50 Unknown 00:26 WBC RBC Hgb Hct MCHC RDW Lymph % (Auto) [place] % (Auto) Eos % (Auto) Lymph # [place] # Lymph # (Auto) [place] # (Auto) Seg Neutrophils % Seg Neuts % (Manual) Lymphocytes % (Manual) Seg Neutrophils # Seg Neutrophils # Man Lymphocytes # (Manual) Monocytes % (Manual) Eosinophils % (Manual) Monocytes # (Manual) Eosinophils # (Manual) D-Dimer Heparin Anti-Xa Level ABG pH POC ABG pCO2 POC ABG pO2 ABG pO2 ABG HCO3 ABG O2 Saturation ABG Base Excess ABG Hemoglobin ABG Oxyhemoglobin VBG pH Oxyhemoglobin Sodium 135 L Potassium Chloride Carbon Dioxide 18 L BUN Creatinine Glucose POC Glucose 241 H Lactic Acid Calcium Ferritin AST Alkaline Phosphatase Magnesium Lactate Dehydrogenase Total Creatine Kinase CK-MB (CK-2) C-Reactive Protein Total Protein Albumin Troponin T HDL Cholesterol Urine WBC (Auto) 11.0 H Urine Creatinine Urine Total Protein Coronavirus (PCR) Crossmatch 06/04/20 06/04/20 06/04/20 03:35 04:19 04:19 WBC RBC 3.15 L Hgb 8.9 L Hct 26.8 L D MCHC RDW 15.9 H Lymph % (Auto) 6.0 L [place] % (Auto) Eos % (Auto) Lymph # 0.6 L [place] # Lymph # (Auto) [place] # (Auto) Seg Neutrophils % 86.6 H Seg Neuts % (Manual) Lymphocytes % (Manual) Seg Neutrophils # 9.1 H Seg Neutrophils # Man Lymphocytes # (Manual) Monocytes % (Manual) Eosinophils % (Manual) Monocytes # (Manual) Eosinophils # (Manual) D-Dimer Heparin Anti-Xa Level ABG pH 7.331 L POC ABG pCO2 POC ABG pO2 ABG pO2 ABG HCO3 ABG O2 Saturation ABG Base Excess -4.7 L ABG Hemoglobin 11.0 L ABG Oxyhemoglobin VBG pH Oxyhemoglobin 93.9 L Sodium 136 L Potassium Chloride Carbon Dioxide 20 L BUN 73 H Creatinine 2.0 H Glucose 192 H POC Glucose Lactic Acid Calcium 8.0 L Ferritin AST Alkaline Phosphatase Magnesium Lactate Dehydrogenase 271 H Total Creatine Kinase CK-MB (CK-2) C-Reactive Protein 2.20 H Total Protein 5.0 L Albumin 2.0 L Troponin T HDL Cholesterol Urine WBC (Auto) Urine Creatinine Urine Total Protein Coronavirus (PCR) Crossmatch 06/04/20 06/04/20 06/04/20 04:19 05:51 11:48 WBC RBC Hgb Hct MCHC RDW Lymph % (Auto) [place] % (Auto) Eos % (Auto) Lymph # [place] # Lymph # (Auto) [place] # (Auto) Seg Neutrophils % Seg Neuts % (Manual) Lymphocytes % (Manual) Seg Neutrophils # Seg Neutrophils # Man Lymphocytes # (Manual) Monocytes % (Manual) Eosinophils % (Manual) Monocytes # (Manual) Eosinophils # (Manual) D-Dimer 414.52 H Heparin Anti-Xa Level ABG pH POC ABG pCO2 POC ABG pO2 ABG pO2 ABG HCO3 ABG O2 Saturation ABG Base Excess ABG Hemoglobin ABG Oxyhemoglobin VBG pH Oxyhemoglobin Sodium Potassium Chloride Carbon Dioxide BUN Creatinine Glucose POC Glucose 179 H 213 H Lactic Acid Calcium Ferritin AST Alkaline Phosphatase Magnesium Lactate Dehydrogenase Total Creatine Kinase CK-MB (CK-2) C-Reactive Protein Total Protein Albumin Troponin T HDL Cholesterol Urine WBC (Auto) Urine Creatinine Urine Total Protein Coronavirus (PCR) Crossmatch 06/04/20 06/05/20 06/05/20 18:25 00:16 05:00 WBC RBC Hgb Hct MCHC RDW Lymph % (Auto) [place] % (Auto) Eos % (Auto) Lymph # [place] # Lymph # (Auto) [place] # (Auto) Seg Neutrophils % Seg Neuts % (Manual) Lymphocytes % (Manual) Seg Neutrophils # Seg Neutrophils # Man Lymphocytes # (Manual) Monocytes % (Manual) Eosinophils % (Manual) Monocytes # (Manual) Eosinophils # (Manual) D-Dimer Heparin Anti-Xa Level ABG pH 7.286 L POC ABG pCO2 POC ABG pO2 ABG pO2 96.2 H ABG HCO3 ABG O2 Saturation ABG Base Excess -6.3 L ABG Hemoglobin 8.8 L ABG Oxyhemoglobin VBG pH Oxyhemoglobin 94.8 L Sodium Potassium Chloride Carbon Dioxide BUN Creatinine Glucose POC Glucose 238 H 183 H Lactic Acid Calcium Ferritin AST Alkaline Phosphatase Magnesium Lactate Dehydrogenase Total Creatine Kinase CK-MB (CK-2) C-Reactive Protein Total Protein Albumin Troponin T HDL Cholesterol Urine WBC (Auto) Urine Creatinine Urine Total Protein Coronavirus (PCR) Crossmatch 06/05/20 06/05/20 06/05/20 05:39 07:25 07:25 WBC RBC 2.97 L Hgb 8.7 L Hct 25.7 L MCHC RDW 16.0 H Lymph % (Auto) 8.8 L [place] % (Auto) 13.3 H Eos % (Auto) Lymph # 0.8 L [place] # 1.3 H Lymph # (Auto) [place] # (Auto) Seg Neutrophils % 77.3 H Seg Neuts % (Manual) Lymphocytes % (Manual) Seg Neutrophils # Seg Neutrophils # Man Lymphocytes # (Manual) Monocytes % (Manual) Eosinophils % (Manual) Monocytes # (Manual) Eosinophils # (Manual) D-Dimer Heparin Anti-Xa Level ABG pH POC ABG pCO2 POC ABG pO2 ABG pO2 ABG HCO3 ABG O2 Saturation ABG Base Excess ABG Hemoglobin ABG Oxyhemoglobin VBG pH Oxyhemoglobin Sodium 133 L Potassium Chloride Carbon Dioxide 17 L BUN 89 H Creatinine 2.8 H Glucose 176 H POC Glucose 149 H Lactic Acid Calcium 7.7 L Ferritin AST Alkaline Phosphatase Magnesium Lactate Dehydrogenase Total Creatine Kinase CK-MB (CK-2) C-Reactive Protein Total Protein 4.2 L Albumin 1.9 L Troponin T HDL Cholesterol Urine WBC (Auto) Urine Creatinine Urine Total Protein Coronavirus (PCR) Crossmatch 06/05/20 06/05/20 06/05/20 07:25 12:05 15:41 WBC RBC Hgb Hct MCHC RDW Lymph % (Auto) [place] % (Auto) Eos % (Auto) Lymph # [place] # Lymph # (Auto) [place] # (Auto) Seg Neutrophils % Seg Neuts % (Manual) Lymphocytes % (Manual) Seg Neutrophils # Seg Neutrophils # Man Lymphocytes # (Manual) Monocytes % (Manual) Eosinophils % (Manual) Monocytes # (Manual) Eosinophils # (Manual) D-Dimer Heparin Anti-Xa Level 0.76 H 0.81 H ABG pH POC ABG pCO2 POC ABG pO2 ABG pO2 ABG HCO3 ABG O2 Saturation ABG Base Excess ABG Hemoglobin ABG Oxyhemoglobin VBG pH Oxyhemoglobin Sodium Potassium Chloride Carbon Dioxide BUN Creatinine Glucose POC Glucose 198 H Lactic Acid Calcium Ferritin AST Alkaline Phosphatase Magnesium Lactate Dehydrogenase Total Creatine Kinase CK-MB (CK-2) C-Reactive Protein Total Protein Albumin Troponin T HDL Cholesterol Urine WBC (Auto) Urine Creatinine Urine Total Protein Coronavirus (PCR) Crossmatch 06/05/20 06/05/20 06/06/20 18:08 23:25 04:00 WBC RBC Hgb Hct MCHC RDW Lymph % (Auto) [place] % (Auto) Eos % (Auto) Lymph # [place] # Lymph # (Auto) [place] # (Auto) Seg Neutrophils % Seg Neuts % (Manual) Lymphocytes % (Manual) Seg Neutrophils # Seg Neutrophils # Man Lymphocytes # (Manual) Monocytes % (Manual) Eosinophils % (Manual) Monocytes # (Manual) Eosinophils # (Manual) D-Dimer Heparin Anti-Xa Level ABG pH POC ABG pCO2 POC ABG pO2 ABG pO2 ABG HCO3 ABG O2 Saturation ABG Base Excess ABG Hemoglobin ABG Oxyhemoglobin VBG pH Oxyhemoglobin Sodium Potassium Chloride Carbon Dioxide BUN Creatinine Glucose POC Glucose 223 H 169 H Lactic Acid Calcium Ferritin AST Alkaline Phosphatase Magnesium Lactate Dehydrogenase Total Creatine Kinase CK-MB (CK-2) C-Reactive Protein Total Protein Albumin Troponin T HDL Cholesterol Urine WBC (Auto) 15.0 H Urine Creatinine Urine Total Protein Coronavirus (PCR) Crossmatch 06/06/20 06/06/20 06/06/20 04:00 05:33 05:38 WBC RBC 2.97 L Hgb 8.7 L Hct 26.8 L MCHC RDW 16.8 H Lymph % (Auto) [place] % (Auto) Eos % (Auto) Lymph # [place] # Lymph # (Auto) [place] # (Auto) Seg Neutrophils % Seg Neuts % (Manual) Lymphocytes % (Manual) Seg Neutrophils # Seg Neutrophils # Man Lymphocytes # (Manual) Monocytes % (Manual) Eosinophils % (Manual) Monocytes # (Manual) Eosinophils # (Manual) D-Dimer Heparin Anti-Xa Level ABG pH POC ABG pCO2 POC ABG pO2 ABG pO2 ABG HCO3 ABG O2 Saturation ABG Base Excess ABG Hemoglobin ABG Oxyhemoglobin VBG pH Oxyhemoglobin Sodium Potassium Chloride Carbon Dioxide BUN Creatinine Glucose POC Glucose 186 H Lactic Acid Calcium Ferritin AST Alkaline Phosphatase Magnesium Lactate Dehydrogenase Total Creatine Kinase CK-MB (CK-2) C-Reactive Protein Total Protein Albumin Troponin T HDL Cholesterol Urine WBC (Auto) Urine Creatinine 82.2 H Urine Total Protein 196 H Coronavirus (PCR) Crossmatch 06/06/20 06/06/20 06/06/20 05:38 12:25 17:03 WBC RBC Hgb Hct MCHC RDW Lymph % (Auto) [place] % (Auto) Eos % (Auto) Lymph # [place] # Lymph # (Auto) [place] # (Auto) Seg Neutrophils % Seg Neuts % (Manual) Lymphocytes % (Manual) Seg Neutrophils # Seg Neutrophils # Man Lymphocytes # (Manual) Monocytes % (Manual) Eosinophils % (Manual) Monocytes # (Manual) Eosinophils # (Manual) D-Dimer Heparin Anti-Xa Level ABG pH POC ABG pCO2 POC ABG pO2 ABG pO2 ABG HCO3 ABG O2 Saturation ABG Base Excess ABG Hemoglobin ABG Oxyhemoglobin VBG pH Oxyhemoglobin Sodium 134 L Potassium 5.2 H Chloride Carbon Dioxide 18 L BUN 97 H Creatinine 2.5 H Glucose 193 H POC Glucose 239 H 252 H Lactic Acid Calcium 7.5 L Ferritin AST Alkaline Phosphatase Magnesium Lactate Dehydrogenase Total Creatine Kinase CK-MB (CK-2) C-Reactive Protein Total Protein 4.1 L Albumin 1.9 L Troponin T HDL Cholesterol Urine WBC (Auto) Urine Creatinine Urine Total Protein Coronavirus (PCR) Crossmatch 06/07/20 06/07/20 06/07/20 00:16 01:49 04:00 WBC RBC 2.91 L Hgb 8.4 L Hct 25.0 L MCHC RDW 16.1 H Lymph % (Auto) 5.7 L [place] % (Auto) 10.5 H Eos % (Auto) Lymph # 0.6 L [place] # 1.1 H Lymph # (Auto) [place] # (Auto) Seg Neutrophils % 83.6 H Seg Neuts % (Manual) Lymphocytes % (Manual) Seg Neutrophils # 9.1 H Seg Neutrophils # Man Lymphocytes # (Manual) Monocytes % (Manual) Eosinophils % (Manual) Monocytes # (Manual) Eosinophils # (Manual) D-Dimer Heparin Anti-Xa Level 0.26 L ABG pH POC ABG pCO2 POC ABG pO2 ABG pO2 ABG HCO3 ABG O2 Saturation ABG Base Excess ABG Hemoglobin ABG Oxyhemoglobin VBG pH Oxyhemoglobin Sodium Potassium Chloride Carbon Dioxide BUN Creatinine Glucose POC Glucose 173 H Lactic Acid Calcium Ferritin AST Alkaline Phosphatase Magnesium Lactate Dehydrogenase Total Creatine Kinase CK-MB (CK-2) C-Reactive Protein Total Protein Albumin Troponin T HDL Cholesterol Urine WBC (Auto) Urine Creatinine Urine Total Protein Coronavirus (PCR) Crossmatch 06/07/20 06/07/20 06/07/20 04:00 04:54 05:51 WBC RBC Hgb Hct MCHC RDW Lymph % (Auto) [place] % (Auto) Eos % (Auto) Lymph # [place] # Lymph # (Auto) [place] # (Auto) Seg Neutrophils % Seg Neuts % (Manual) Lymphocytes % (Manual) Seg Neutrophils # Seg Neutrophils # Man Lymphocytes # (Manual) Monocytes % (Manual) Eosinophils % (Manual) Monocytes # (Manual) Eosinophils # (Manual) D-Dimer Heparin Anti-Xa Level ABG pH 7.317 L POC ABG pCO2 POC ABG pO2 ABG pO2 71.4 L ABG HCO3 ABG O2 Saturation 94.3 L ABG Base Excess -4.8 L ABG Hemoglobin 7.1 L ABG Oxyhemoglobin VBG pH Oxyhemoglobin 92.2 L Sodium 133 L Potassium Chloride Carbon Dioxide 18 L BUN 100 H Creatinine 2.5 H Glucose 158 H POC Glucose 168 H Lactic Acid Calcium 7.6 L Ferritin AST Alkaline Phosphatase Magnesium Lactate Dehydrogenase Total Creatine Kinase CK-MB (CK-2) C-Reactive Protein Total Protein 4.7 L Albumin 2.0 L Troponin T HDL Cholesterol Urine WBC (Auto) Urine Creatinine Urine Total Protein Coronavirus (PCR) Crossmatch 06/07/20 06/07/20 06/07/20 12:03 17:17 20:10 WBC RBC Hgb Hct MCHC RDW Lymph % (Auto) [place] % (Auto) Eos % (Auto) Lymph # [place] # Lymph # (Auto) [place] # (Auto) Seg Neutrophils % Seg Neuts % (Manual) Lymphocytes % (Manual) Seg Neutrophils # Seg Neutrophils # Man Lymphocytes # (Manual) Monocytes % (Manual) Eosinophils % (Manual) Monocytes # (Manual) Eosinophils # (Manual) D-Dimer Heparin Anti-Xa Level 0.17 L ABG pH POC ABG pCO2 POC ABG pO2 ABG pO2 ABG HCO3 ABG O2 Saturation ABG Base Excess ABG Hemoglobin ABG Oxyhemoglobin VBG pH Oxyhemoglobin Sodium Potassium Chloride Carbon Dioxide BUN Creatinine Glucose POC Glucose 276 H 281 H Lactic Acid Calcium Ferritin AST Alkaline Phosphatase Magnesium Lactate Dehydrogenase Total Creatine Kinase CK-MB (CK-2) C-Reactive Protein Total Protein Albumin Troponin T HDL Cholesterol Urine WBC (Auto) Urine Creatinine Urine Total Protein Coronavirus (PCR) Crossmatch 06/08/20 06/08/20 06/08/20 00:02 04:47 04:47 WBC 16.4 H RBC 3.07 L Hgb 8.6 L Hct 26.5 L MCHC RDW 16.3 H Lymph % (Auto) [place] % (Auto) Eos % (Auto) Lymph # [place] # Lymph # (Auto) [place] # (Auto) Seg Neutrophils % Seg Neuts % (Manual) 90.0 H Lymphocytes % (Manual) 3.0 L Seg Neutrophils # Seg Neutrophils # Man 14.8 H Lymphocytes # (Manual) 0.5 L Monocytes % (Manual) Eosinophils % (Manual) Monocytes # (Manual) 1.1 H Eosinophils # (Manual) D-Dimer Heparin Anti-Xa Level ABG pH POC ABG pCO2 POC ABG pO2 ABG pO2 ABG HCO3 ABG O2 Saturation ABG Base Excess ABG Hemoglobin ABG Oxyhemoglobin VBG pH Oxyhemoglobin Sodium 129 L Potassium Chloride 95.6 L Carbon Dioxide 17 L BUN 106 H Creatinine 2.5 H Glucose 213 H POC Glucose 242 H Lactic Acid Calcium 7.6 L Ferritin AST Alkaline Phosphatase Magnesium Lactate Dehydrogenase Total Creatine Kinase CK-MB (CK-2) C-Reactive Protein Total Protein 5.0 L Albumin 2.1 L Troponin T HDL Cholesterol Urine WBC (Auto) Urine Creatinine Urine Total Protein Coronavirus (PCR) Crossmatch 06/08/20 06/08/20 06/08/20 05:40 11:55 17:54 WBC RBC Hgb Hct MCHC RDW Lymph % (Auto) [place] % (Auto) Eos % (Auto) Lymph # [place] # Lymph # (Auto) [place] # (Auto) Seg Neutrophils % Seg Neuts % (Manual) Lymphocytes % (Manual) Seg Neutrophils # Seg Neutrophils # Man Lymphocytes # (Manual) Monocytes % (Manual) Eosinophils % (Manual) Monocytes # (Manual) Eosinophils # (Manual) D-Dimer Heparin Anti-Xa Level ABG pH POC ABG pCO2 POC ABG pO2 ABG pO2 ABG HCO3 ABG O2 Saturation ABG Base Excess ABG Hemoglobin ABG Oxyhemoglobin VBG pH Oxyhemoglobin Sodium Potassium Chloride Carbon Dioxide BUN Creatinine Glucose POC Glucose 221 H 218 H 163 H Lactic Acid Calcium Ferritin AST Alkaline Phosphatase Magnesium Lactate Dehydrogenase Total Creatine Kinase CK-MB (CK-2) C-Reactive Protein Total Protein Albumin Troponin T HDL Cholesterol Urine WBC (Auto) Urine Creatinine Urine Total Protein Coronavirus (PCR) Crossmatch 06/08/20 06/09/20 06/09/20 22:01 00:09 05:16 WBC 19.0 H RBC 3.35 L Hgb 9.2 L Hct 28.5 L MCHC RDW 16.3 H Lymph % (Auto) [place] % (Auto) Eos % (Auto) Lymph # [place] # Lymph # (Auto) [place] # (Auto) Seg Neutrophils % Seg Neuts % (Manual) 85.0 H Lymphocytes % (Manual) 7.0 L Seg Neutrophils # Seg Neutrophils # Man 16.2 H Lymphocytes # (Manual) Monocytes % (Manual) Eosinophils % (Manual) Monocytes # (Manual) 1.3 H Eosinophils # (Manual) D-Dimer Heparin Anti-Xa Level ABG pH POC ABG pCO2 POC ABG pO2 ABG pO2 ABG HCO3 ABG O2 Saturation ABG Base Excess ABG Hemoglobin ABG Oxyhemoglobin VBG pH Oxyhemoglobin Sodium Potassium Chloride Carbon Dioxide BUN Creatinine Glucose POC Glucose 182 H 150 H Lactic Acid Calcium Ferritin AST Alkaline Phosphatase Magnesium Lactate Dehydrogenase Total Creatine Kinase CK-MB (CK-2) C-Reactive Protein Total Protein Albumin Troponin T HDL Cholesterol Urine WBC (Auto) Urine Creatinine Urine Total Protein Coronavirus (PCR) Crossmatch 06/09/20 06/09/20 06/09/20 05:16 05:24 11:29 WBC RBC Hgb Hct MCHC RDW Lymph % (Auto) [place] % (Auto) Eos % (Auto) Lymph # [place] # Lymph # (Auto) [place] # (Auto) Seg Neutrophils % Seg Neuts % (Manual) Lymphocytes % (Manual) Seg Neutrophils # Seg Neutrophils # Man Lymphocytes # (Manual) Monocytes % (Manual) Eosinophils % (Manual) Monocytes # (Manual) Eosinophils # (Manual) D-Dimer Heparin Anti-Xa Level ABG pH POC ABG pCO2 POC ABG pO2 ABG pO2 ABG HCO3 ABG O2 Saturation ABG Base Excess ABG Hemoglobin ABG Oxyhemoglobin VBG pH Oxyhemoglobin Sodium 133 L Potassium Chloride Carbon Dioxide 19 L BUN 109 H Creatinine 2.1 H Glucose 133 H POC Glucose 128 H 119 H Lactic Acid Calcium 7.7 L Ferritin AST Alkaline Phosphatase < 5 L Magnesium Lactate Dehydrogenase Total Creatine Kinase CK-MB (CK-2) C-Reactive Protein Total Protein 4.6 L Albumin < 0.2 L Troponin T HDL Cholesterol Urine WBC (Auto) Urine Creatinine Urine Total Protein Coronavirus (PCR) Crossmatch 06/09/20 06/10/20 06/10/20 17:32 00:00 05:49 WBC RBC Hgb Hct MCHC RDW Lymph % (Auto) [place] % (Auto) Eos % (Auto) Lymph # [place] # Lymph # (Auto) [place] # (Auto) Seg Neutrophils % Seg Neuts % (Manual) Lymphocytes % (Manual) Seg Neutrophils # Seg Neutrophils # Man Lymphocytes # (Manual) Monocytes % (Manual) Eosinophils % (Manual) Monocytes # (Manual) Eosinophils # (Manual) D-Dimer Heparin Anti-Xa Level 0.19 L ABG pH POC ABG pCO2 POC ABG pO2 ABG pO2 ABG HCO3 ABG O2 Saturation ABG Base Excess ABG Hemoglobin ABG Oxyhemoglobin VBG pH Oxyhemoglobin Sodium Potassium Chloride Carbon Dioxide BUN Creatinine Glucose POC Glucose 106 H 117 H Lactic Acid Calcium Ferritin AST Alkaline Phosphatase Magnesium Lactate Dehydrogenase Total Creatine Kinase CK-MB (CK-2) C-Reactive Protein Total Protein Albumin Troponin T HDL Cholesterol Urine WBC (Auto) Urine Creatinine Urine Total Protein Coronavirus (PCR) Crossmatch 06/10/20 06/10/20 06/10/20 05:54 07:40 11:40 WBC RBC Hgb Hct MCHC RDW Lymph % (Auto) [place] % (Auto) Eos % (Auto) Lymph # [place] # Lymph # (Auto) [place] # (Auto) Seg Neutrophils % Seg Neuts % (Manual) Lymphocytes % (Manual) Seg Neutrophils # Seg Neutrophils # Man Lymphocytes # (Manual) Monocytes % (Manual) Eosinophils % (Manual) Monocytes # (Manual) Eosinophils # (Manual) D-Dimer Heparin Anti-Xa Level ABG pH POC ABG pCO2 POC ABG pO2 ABG pO2 ABG HCO3 ABG O2 Saturation ABG Base Excess ABG Hemoglobin ABG Oxyhemoglobin VBG pH Oxyhemoglobin Sodium 146 H D Potassium Chloride Carbon Dioxide 20 L BUN 99 H Creatinine 1.9 H Glucose 121 H POC Glucose 127 H 138 H Lactic Acid Calcium 8.2 L Ferritin AST Alkaline Phosphatase Magnesium Lactate Dehydrogenase Total Creatine Kinase CK-MB (CK-2) C-Reactive Protein Total Protein Albumin Troponin T HDL Cholesterol Urine WBC (Auto) Urine Creatinine Urine Total Protein Coronavirus (PCR) Crossmatch 06/10/20 06/10/20 06/10/20 14:44 17:31 23:22 WBC RBC Hgb Hct MCHC RDW Lymph % (Auto) [place] % (Auto) Eos % (Auto) Lymph # [place] # Lymph # (Auto) [place] # (Auto) Seg Neutrophils % Seg Neuts % (Manual) Lymphocytes % (Manual) Seg Neutrophils # Seg Neutrophils # Man Lymphocytes # (Manual) Monocytes % (Manual) Eosinophils % (Manual) Monocytes # (Manual) Eosinophils # (Manual) D-Dimer Heparin Anti-Xa Level 0.17 L ABG pH POC ABG pCO2 POC ABG pO2 ABG pO2 ABG HCO3 ABG O2 Saturation ABG Base Excess ABG Hemoglobin ABG Oxyhemoglobin VBG pH Oxyhemoglobin Sodium Potassium Chloride Carbon Dioxide BUN Creatinine Glucose POC Glucose 128 H 114 H Lactic Acid Calcium Ferritin AST Alkaline Phosphatase Magnesium Lactate Dehydrogenase Total Creatine Kinase CK-MB (CK-2) C-Reactive Protein Total Protein Albumin Troponin T HDL Cholesterol Urine WBC (Auto) Urine Creatinine Urine Total Protein Coronavirus (PCR) Crossmatch 06/11/20 06/11/20 06/11/20 00:22 03:45 03:45 WBC 14.6 H RBC 2.77 L Hgb 7.9 L Hct 24.3 L MCHC RDW 16.8 H Lymph % (Auto) 6.6 L [place] % (Auto) 8.5 H Eos % (Auto) Lymph # 1.0 L [place] # 1.2 H Lymph # (Auto) [place] # (Auto) Seg Neutrophils % 82.9 H Seg Neuts % (Manual) Lymphocytes % (Manual) Seg Neutrophils # 12.1 H Seg Neutrophils # Man Lymphocytes # (Manual) Monocytes % (Manual) Eosinophils % (Manual) Monocytes # (Manual) Eosinophils # (Manual) D-Dimer Heparin Anti-Xa Level 0.24 L ABG pH POC ABG pCO2 POC ABG pO2 ABG pO2 ABG HCO3 ABG O2 Saturation ABG Base Excess ABG Hemoglobin ABG Oxyhemoglobin VBG pH Oxyhemoglobin Sodium Potassium Chloride Carbon Dioxide 20 L BUN 88 H Creatinine 1.5 H Glucose 111 H POC Glucose Lactic Acid Calcium 8.2 L Ferritin AST Alkaline Phosphatase Magnesium Lactate Dehydrogenase Total Creatine Kinase CK-MB (CK-2) C-Reactive Protein Total Protein Albumin Troponin T HDL Cholesterol Urine WBC (Auto) Urine Creatinine Urine Total Protein Coronavirus (PCR) Crossmatch 09/03/20 09/03/20 09/03/20 06:03 10:22 11:11 WBC RBC Hgb Hct MCHC RDW Lymph % (Auto) [place] % (Auto) Eos % (Auto) Lymph # [place] # Lymph # (Auto) [place] # (Auto) Seg Neutrophils % Seg Neuts % (Manual) Lymphocytes % (Manual) Seg Neutrophils # Seg Neutrophils # Man Lymphocytes # (Manual) Monocytes % (Manual) Eosinophils % (Manual) Monocytes # (Manual) Eosinophils # (Manual) D-Dimer Heparin Anti-Xa Level 0.26 L ABG pH POC ABG pCO2 POC ABG pO2 ABG pO2 ABG HCO3 ABG O2 Saturation ABG Base Excess ABG Hemoglobin 9.6 L ABG Oxyhemoglobin VBG pH Oxyhemoglobin Sodium Potassium Chloride Carbon Dioxide BUN Creatinine Glucose POC Glucose 114 H Lactic Acid Calcium Ferritin AST Alkaline Phosphatase Magnesium Lactate Dehydrogenase Total Creatine Kinase CK-MB (CK-2) C-Reactive Protein Total Protein Albumin Troponin T HDL Cholesterol Urine WBC (Auto) Urine Creatinine Urine Total Protein Coronavirus (PCR) Crossmatch 06/11/20 06/11/20 06/12/20 12:24 17:24 00:21 WBC RBC Hgb Hct MCHC RDW Lymph % (Auto) [place] % (Auto) Eos % (Auto) Lymph # [place] # Lymph # (Auto) [place] # (Auto) Seg Neutrophils % Seg Neuts % (Manual) Lymphocytes % (Manual) Seg Neutrophils # Seg Neutrophils # Man Lymphocytes # (Manual) Monocytes % (Manual) Eosinophils % (Manual) Monocytes # (Manual) Eosinophils # (Manual) D-Dimer Heparin Anti-Xa Level ABG pH POC ABG pCO2 POC ABG pO2 ABG pO2 ABG HCO3 ABG O2 Saturation ABG Base Excess ABG Hemoglobin ABG Oxyhemoglobin VBG pH Oxyhemoglobin Sodium Potassium Chloride Carbon Dioxide BUN Creatinine Glucose POC Glucose 119 H 126 H 117 H Lactic Acid Calcium Ferritin AST Alkaline Phosphatase Magnesium Lactate Dehydrogenase Total Creatine Kinase CK-MB (CK-2) C-Reactive Protein Total Protein Albumin Troponin T HDL Cholesterol Urine WBC (Auto) Urine Creatinine Urine Total Protein Coronavirus (PCR) Crossmatch 06/12/20 06/12/20 06/12/20 02:46 02:46 05:46 WBC 13.2 H RBC 2.83 L Hgb 8.3 L Hct 24.3 L MCHC RDW 16.6 H Lymph % (Auto) 6.2 L [place] % (Auto) 9.5 H Eos % (Auto) Lymph # 0.8 L [place] # 1.3 H Lymph # (Auto) [place] # (Auto) Seg Neutrophils % 81.9 H Seg Neuts % (Manual) Lymphocytes % (Manual) Seg Neutrophils # 10.9 H Seg Neutrophils # Man Lymphocytes # (Manual) Monocytes % (Manual) Eosinophils % (Manual) Monocytes # (Manual) Eosinophils # (Manual) D-Dimer Heparin Anti-Xa Level ABG pH POC ABG pCO2 POC ABG pO2 ABG pO2 ABG HCO3 ABG O2 Saturation ABG Base Excess ABG Hemoglobin ABG Oxyhemoglobin VBG pH Oxyhemoglobin Sodium Potassium 3.5 L Chloride Carbon Dioxide BUN 77 H Creatinine 1.3 H Glucose POC Glucose 132 H Lactic Acid Calcium 8.3 L Ferritin AST Alkaline Phosphatase Magnesium Lactate Dehydrogenase Total Creatine Kinase CK-MB (CK-2) C-Reactive Protein Total Protein Albumin Troponin T HDL Cholesterol Urine WBC (Auto) Urine Creatinine Urine Total Protein Coronavirus (PCR) Crossmatch 06/12/20 06/12/20 06/12/20 09:20 12:16 17:48 WBC RBC Hgb Hct MCHC RDW Lymph % (Auto) [place] % (Auto) Eos % (Auto) Lymph # [place] # Lymph # (Auto) [place] # (Auto) Seg Neutrophils % Seg Neuts % (Manual) Lymphocytes % (Manual) Seg Neutrophils # Seg Neutrophils # Man Lymphocytes # (Manual) Monocytes % (Manual) Eosinophils % (Manual) Monocytes # (Manual) Eosinophils # (Manual) D-Dimer Heparin Anti-Xa Level ABG pH POC ABG pCO2 POC ABG pO2 ABG pO2 91.1 H ABG HCO3 ABG O2 Saturation ABG Base Excess ABG Hemoglobin ABG Oxyhemoglobin VBG pH Oxyhemoglobin 94.8 L Sodium Potassium Chloride Carbon Dioxide BUN Creatinine Glucose POC Glucose 167 H 182 H Lactic Acid Calcium Ferritin AST Alkaline Phosphatase Magnesium Lactate Dehydrogenase Total Creatine Kinase CK-MB (CK-2) C-Reactive Protein Total Protein Albumin Troponin T HDL Cholesterol Urine WBC (Auto) Urine Creatinine Urine Total Protein Coronavirus (PCR) Crossmatch 06/13/20 06/13/20 06/13/20 00:08 05:37 09:09 WBC RBC Hgb Hct MCHC RDW Lymph % (Auto) [place] % (Auto) Eos % (Auto) Lymph # [place] # Lymph # (Auto) [place] # (Auto) Seg Neutrophils % Seg Neuts % (Manual) Lymphocytes % (Manual) Seg Neutrophils # Seg Neutrophils # Man Lymphocytes # (Manual) Monocytes % (Manual) Eosinophils % (Manual) Monocytes # (Manual) Eosinophils # (Manual) D-Dimer Heparin Anti-Xa Level 0.86 H ABG pH POC ABG pCO2 POC ABG pO2 ABG pO2 ABG HCO3 ABG O2 Saturation ABG Base Excess ABG Hemoglobin ABG Oxyhemoglobin VBG pH Oxyhemoglobin Sodium Potassium Chloride Carbon Dioxide BUN Creatinine Glucose POC Glucose 142 H 119 H Lactic Acid Calcium Ferritin AST Alkaline Phosphatase Magnesium Lactate Dehydrogenase Total Creatine Kinase CK-MB (CK-2) C-Reactive Protein Total Protein Albumin Troponin T HDL Cholesterol Urine WBC (Auto) Urine Creatinine Urine Total Protein Coronavirus (PCR) Crossmatch 06/13/20 06/13/20 06/13/20 12:28 17:55 21:17 WBC RBC Hgb Hct MCHC RDW Lymph % (Auto) [place] % (Auto) Eos % (Auto) Lymph # [place] # Lymph # (Auto) [place] # (Auto) Seg Neutrophils % Seg Neuts % (Manual) Lymphocytes % (Manual) Seg Neutrophils # Seg Neutrophils # Man Lymphocytes # (Manual) Monocytes % (Manual) Eosinophils % (Manual) Monocytes # (Manual) Eosinophils # (Manual) D-Dimer Heparin Anti-Xa Level ABG pH POC ABG pCO2 POC ABG pO2 ABG pO2 ABG HCO3 ABG O2 Saturation ABG Base Excess ABG Hemoglobin ABG Oxyhemoglobin VBG pH Oxyhemoglobin Sodium Potassium Chloride Carbon Dioxide BUN 61 H Creatinine Glucose 131 H POC Glucose 165 H 174 H Lactic Acid Calcium Ferritin AST Alkaline Phosphatase Magnesium Lactate Dehydrogenase Total Creatine Kinase CK-MB (CK-2) C-Reactive Protein Total Protein Albumin Troponin T HDL Cholesterol Urine WBC (Auto) Urine Creatinine Urine Total Protein Coronavirus (PCR) Crossmatch 06/13/20 06/13/20 06/14/20 21:17 23:50 05:34 WBC RBC Hgb Hct MCHC RDW Lymph % (Auto) [place] % (Auto) Eos % (Auto) Lymph # [place] # Lymph # (Auto) [place] # (Auto) Seg Neutrophils % Seg Neuts % (Manual) Lymphocytes % (Manual) Seg Neutrophils # Seg Neutrophils # Man Lymphocytes # (Manual) Monocytes % (Manual) Eosinophils % (Manual) Monocytes # (Manual) Eosinophils # (Manual) D-Dimer Heparin Anti-Xa Level 0.72 H ABG pH POC ABG pCO2 POC ABG pO2 ABG pO2 ABG HCO3 ABG O2 Saturation ABG Base Excess ABG Hemoglobin ABG Oxyhemoglobin VBG pH Oxyhemoglobin Sodium 146 H Potassium Chloride 107.6 H Carbon Dioxide BUN 61 H Creatinine 1.3 H Glucose 135 H POC Glucose 146 H Lactic Acid Calcium Ferritin AST Alkaline Phosphatase Magnesium Lactate Dehydrogenase Total Creatine Kinase CK-MB (CK-2) C-Reactive Protein Total Protein Albumin Troponin T HDL Cholesterol Urine WBC (Auto) Urine Creatinine Urine Total Protein Coronavirus (PCR) Crossmatch 06/14/20 06/14/20 06/14/20 06:11 09:28 11:30 WBC RBC Hgb Hct MCHC RDW Lymph % (Auto) [place] % (Auto) Eos % (Auto) Lymph # [place] # Lymph # (Auto) [place] # (Auto) Seg Neutrophils % Seg Neuts % (Manual) Lymphocytes % (Manual) Seg Neutrophils # Seg Neutrophils # Man Lymphocytes # (Manual) Monocytes % (Manual) Eosinophils % (Manual) Monocytes # (Manual) Eosinophils # (Manual) D-Dimer Heparin Anti-Xa Level 0.90 H ABG pH POC ABG pCO2 POC ABG pO2 ABG pO2 ABG HCO3 ABG O2 Saturation ABG Base Excess ABG Hemoglobin ABG Oxyhemoglobin VBG pH Oxyhemoglobin Sodium Potassium Chloride Carbon Dioxide BUN Creatinine Glucose POC Glucose 141 H 186 H Lactic Acid Calcium Ferritin AST Alkaline Phosphatase Magnesium Lactate Dehydrogenase Total Creatine Kinase CK-MB (CK-2) C-Reactive Protein Total Protein Albumin Troponin T HDL Cholesterol Urine WBC (Auto) Urine Creatinine Urine Total Protein Coronavirus (PCR) Crossmatch 06/14/20 06/14/20 06/14/20 16:07 18:16 23:51 WBC RBC Hgb Hct MCHC RDW Lymph % (Auto) [place] % (Auto) Eos % (Auto) Lymph # [place] # Lymph # (Auto) [place] # (Auto) Seg Neutrophils % Seg Neuts % (Manual) Lymphocytes % (Manual) Seg Neutrophils # Seg Neutrophils # Man Lymphocytes # (Manual) Monocytes % (Manual) Eosinophils % (Manual) Monocytes # (Manual) Eosinophils # (Manual) D-Dimer Heparin Anti-Xa Level 0.82 H ABG pH POC ABG pCO2 POC ABG pO2 ABG pO2 ABG HCO3 ABG O2 Saturation ABG Base Excess ABG Hemoglobin ABG Oxyhemoglobin VBG pH Oxyhemoglobin Sodium Potassium Chloride Carbon Dioxide BUN Creatinine Glucose POC Glucose 106 H 154 H Lactic Acid Calcium Ferritin AST Alkaline Phosphatase Magnesium Lactate Dehydrogenase Total Creatine Kinase CK-MB (CK-2) C-Reactive Protein Total Protein Albumin Troponin T HDL Cholesterol Urine WBC (Auto) Urine Creatinine Urine Total Protein Coronavirus (PCR) Crossmatch 06/15/20 06/15/20 06/15/20 04:24 04:24 05:59 WBC RBC 2.75 L Hgb 7.9 L Hct 24.0 L MCHC RDW 16.4 H Lymph % (Auto) 12.9 L [place] % (Auto) 8.7 H Eos % (Auto) 4.6 H Lymph # 1.1 L [place] # Lymph # (Auto) [place] # (Auto) Seg Neutrophils % 73.2 H Seg Neuts % (Manual) Lymphocytes % (Manual) Seg Neutrophils # Seg Neutrophils # Man Lymphocytes # (Manual) Monocytes % (Manual) Eosinophils % (Manual) Monocytes # (Manual) Eosinophils # (Manual) D-Dimer Heparin Anti-Xa Level ABG pH POC ABG pCO2 POC ABG pO2 ABG pO2 ABG HCO3 ABG O2 Saturation ABG Base Excess ABG Hemoglobin ABG Oxyhemoglobin VBG pH Oxyhemoglobin Sodium Potassium 3.4 L Chloride Carbon Dioxide BUN 55 H Creatinine 1.3 H Glucose 142 H POC Glucose 131 H Lactic Acid Calcium Ferritin AST Alkaline Phosphatase Magnesium Lactate Dehydrogenase Total Creatine Kinase CK-MB (CK-2) C-Reactive Protein Total Protein Albumin Troponin T HDL Cholesterol Urine WBC (Auto) Urine Creatinine Urine Total Protein Coronavirus (PCR) Crossmatch 06/15/20 06/15/20 06/16/20 12:33 17:07 00:22 WBC RBC Hgb Hct MCHC RDW Lymph % (Auto) [place] % (Auto) Eos % (Auto) Lymph # [place] # Lymph # (Auto) [place] # (Auto) Seg Neutrophils % Seg Neuts % (Manual) Lymphocytes % (Manual) Seg Neutrophils # Seg Neutrophils # Man Lymphocytes # (Manual) Monocytes % (Manual) Eosinophils % (Manual) Monocytes # (Manual) Eosinophils # (Manual) D-Dimer Heparin Anti-Xa Level 0.21 L ABG pH POC ABG pCO2 POC ABG pO2 ABG pO2 ABG HCO3 ABG O2 Saturation ABG Base Excess ABG Hemoglobin ABG Oxyhemoglobin VBG pH Oxyhemoglobin Sodium Potassium Chloride Carbon Dioxide BUN Creatinine Glucose POC Glucose 180 H 185 H Lactic Acid Calcium Ferritin AST Alkaline Phosphatase Magnesium Lactate Dehydrogenase Total Creatine Kinase CK-MB (CK-2) C-Reactive Protein Total Protein Albumin Troponin T HDL Cholesterol Urine WBC (Auto) Urine Creatinine Urine Total Protein Coronavirus (PCR) Crossmatch 06/16/20 06/16/20 06/16/20 01:45 08:06 09:15 WBC RBC Hgb Hct MCHC RDW Lymph % (Auto) [place] % (Auto) Eos % (Auto) Lymph # [place] # Lymph # (Auto) [place] # (Auto) Seg Neutrophils % Seg Neuts % (Manual) Lymphocytes % (Manual) Seg Neutrophils # Seg Neutrophils # Man Lymphocytes # (Manual) Monocytes % (Manual) Eosinophils % (Manual) Monocytes # (Manual) Eosinophils # (Manual) D-Dimer Heparin Anti-Xa Level ABG pH POC ABG pCO2 POC ABG pO2 ABG pO2 ABG HCO3 ABG O2 Saturation ABG Base Excess ABG Hemoglobin ABG Oxyhemoglobin VBG pH Oxyhemoglobin Sodium Potassium Chloride Carbon Dioxide BUN 49 H Creatinine Glucose 154 H POC Glucose 140 H 171 H Lactic Acid Calcium Ferritin AST Alkaline Phosphatase Magnesium Lactate Dehydrogenase Total Creatine Kinase CK-MB (CK-2) C-Reactive Protein Total Protein Albumin Troponin T HDL Cholesterol Urine WBC (Auto) Urine Creatinine Urine Total Protein Coronavirus (PCR) Crossmatch 06/16/20 06/16/20 06/16/20 10:46 12:33 17:54 WBC RBC Hgb Hct MCHC RDW Lymph % (Auto) [place] % (Auto) Eos % (Auto) Lymph # [place] # Lymph # (Auto) [place] # (Auto) Seg Neutrophils % Seg Neuts % (Manual) Lymphocytes % (Manual) Seg Neutrophils # Seg Neutrophils # Man Lymphocytes # (Manual) Monocytes % (Manual) Eosinophils % (Manual) Monocytes # (Manual) Eosinophils # (Manual) D-Dimer Heparin Anti-Xa Level 0.12 L ABG pH POC ABG pCO2 POC ABG pO2 ABG pO2 ABG HCO3 ABG O2 Saturation ABG Base Excess ABG Hemoglobin ABG Oxyhemoglobin VBG pH Oxyhemoglobin Sodium Potassium Chloride Carbon Dioxide BUN Creatinine Glucose POC Glucose 166 H 151 H Lactic Acid Calcium Ferritin AST Alkaline Phosphatase Magnesium Lactate Dehydrogenase Total Creatine Kinase CK-MB (CK-2) C-Reactive Protein Total Protein Albumin Troponin T HDL Cholesterol Urine WBC (Auto) Urine Creatinine Urine Total Protein Coronavirus (PCR) Crossmatch 06/16/20 06/17/20 06/17/20 18:47 00:00 02:19 WBC RBC Hgb Hct MCHC RDW Lymph % (Auto) [place] % (Auto) Eos % (Auto) Lymph # [place] # Lymph # (Auto) [place] # (Auto) Seg Neutrophils % Seg Neuts % (Manual) Lymphocytes % (Manual) Seg Neutrophils # Seg Neutrophils # Man Lymphocytes # (Manual) Monocytes % (Manual) Eosinophils % (Manual) Monocytes # (Manual) Eosinophils # (Manual) D-Dimer Heparin Anti-Xa Level 0.73 H 0.77 H ABG pH POC ABG pCO2 POC ABG pO2 ABG pO2 ABG HCO3 ABG O2 Saturation ABG Base Excess ABG Hemoglobin ABG Oxyhemoglobin VBG pH Oxyhemoglobin Sodium Potassium Chloride Carbon Dioxide BUN Creatinine Glucose POC Glucose 139 H Lactic Acid Calcium Ferritin AST Alkaline Phosphatase Magnesium Lactate Dehydrogenase Total Creatine Kinase CK-MB (CK-2) C-Reactive Protein Total Protein Albumin Troponin T HDL Cholesterol Urine WBC (Auto) Urine Creatinine Urine Total Protein Coronavirus (PCR) Crossmatch 06/17/20 06/17/20 06/17/20 06:07 11:42 16:43 WBC RBC Hgb Hct MCHC RDW Lymph % (Auto) [place] % (Auto) Eos % (Auto) Lymph # [place] # Lymph # (Auto) [place] # (Auto) Seg Neutrophils % Seg Neuts % (Manual) Lymphocytes % (Manual) Seg Neutrophils # Seg Neutrophils # Man Lymphocytes # (Manual) Monocytes % (Manual) Eosinophils % (Manual) Monocytes # (Manual) Eosinophils # (Manual) D-Dimer Heparin Anti-Xa Level 0.73 H ABG pH POC ABG pCO2 POC ABG pO2 ABG pO2 ABG HCO3 ABG O2 Saturation ABG Base Excess ABG Hemoglobin ABG Oxyhemoglobin VBG pH Oxyhemoglobin Sodium Potassium Chloride Carbon Dioxide BUN Creatinine Glucose POC Glucose 169 H 169 H Lactic Acid Calcium Ferritin AST Alkaline Phosphatase Magnesium Lactate Dehydrogenase Total Creatine Kinase CK-MB (CK-2) C-Reactive Protein Total Protein Albumin Troponin T HDL Cholesterol Urine WBC (Auto) Urine Creatinine Urine Total Protein Coronavirus (PCR) Crossmatch 06/17/20 06/17/20 06/17/20 18:18 23:08 23:16 WBC RBC Hgb Hct MCHC RDW Lymph % (Auto) [place] % (Auto) Eos % (Auto) Lymph # [place] # Lymph # (Auto) [place] # (Auto) Seg Neutrophils % Seg Neuts % (Manual) Lymphocytes % (Manual) Seg Neutrophils # Seg Neutrophils # Man Lymphocytes # (Manual) Monocytes % (Manual) Eosinophils % (Manual) Monocytes # (Manual) Eosinophils # (Manual) D-Dimer Heparin Anti-Xa Level 0.71 H ABG pH POC ABG pCO2 POC ABG pO2 ABG pO2 ABG HCO3 ABG O2 Saturation ABG Base Excess ABG Hemoglobin ABG Oxyhemoglobin VBG pH Oxyhemoglobin Sodium Potassium Chloride Carbon Dioxide BUN Creatinine Glucose POC Glucose 159 H 134 H Lactic Acid Calcium Ferritin AST Alkaline Phosphatase Magnesium Lactate Dehydrogenase Total Creatine Kinase CK-MB (CK-2) C-Reactive Protein Total Protein Albumin Troponin T HDL Cholesterol Urine WBC (Auto) Urine Creatinine Urine Total Protein Coronavirus (PCR) Crossmatch 06/18/20 06/18/20 06/18/20 04:42 05:52 11:50 WBC RBC Hgb Hct MCHC RDW Lymph % (Auto) [place] % (Auto) Eos % (Auto) Lymph # [place] # Lymph # (Auto) [place] # (Auto) Seg Neutrophils % Seg Neuts % (Manual) Lymphocytes % (Manual) Seg Neutrophils # Seg Neutrophils # Man Lymphocytes # (Manual) Monocytes % (Manual) Eosinophils % (Manual) Monocytes # (Manual) Eosinophils # (Manual) D-Dimer Heparin Anti-Xa Level ABG pH POC ABG pCO2 POC ABG pO2 ABG pO2 ABG HCO3 ABG O2 Saturation ABG Base Excess ABG Hemoglobin ABG Oxyhemoglobin VBG pH Oxyhemoglobin Sodium Potassium Chloride Carbon Dioxide BUN 44 H Creatinine Glucose 115 H POC Glucose 171 H 167 H Lactic Acid Calcium Ferritin AST Alkaline Phosphatase Magnesium Lactate Dehydrogenase Total Creatine Kinase CK-MB (CK-2) C-Reactive Protein Total Protein Albumin Troponin T HDL Cholesterol Urine WBC (Auto) Urine Creatinine Urine Total Protein Coronavirus (PCR) Crossmatch 06/18/20 06/19/20 06/19/20 23:46 05:48 07:52 WBC RBC Hgb Hct MCHC RDW Lymph % (Auto) [place] % (Auto) Eos % (Auto) Lymph # [place] # Lymph # (Auto) [place] # (Auto) Seg Neutrophils % Seg Neuts % (Manual) Lymphocytes % (Manual) Seg Neutrophils # Seg Neutrophils # Man Lymphocytes # (Manual) Monocytes % (Manual) Eosinophils % (Manual) Monocytes # (Manual) Eosinophils # (Manual) D-Dimer Heparin Anti-Xa Level ABG pH POC ABG pCO2 POC ABG pO2 ABG pO2 ABG HCO3 ABG O2 Saturation ABG Base Excess ABG Hemoglobin ABG Oxyhemoglobin VBG pH Oxyhemoglobin Sodium Potassium Chloride Carbon Dioxide BUN Creatinine Glucose POC Glucose 130 H 207 H 175 H Lactic Acid Calcium Ferritin AST Alkaline Phosphatase Magnesium Lactate Dehydrogenase Total Creatine Kinase CK-MB (CK-2) C-Reactive Protein Total Protein Albumin Troponin T HDL Cholesterol Urine WBC (Auto) Urine Creatinine Urine Total Protein Coronavirus (PCR) Crossmatch 06/19/20 06/19/20 06/20/20 11:42 22:54 05:17 WBC RBC Hgb Hct MCHC RDW Lymph % (Auto) [place] % (Auto) Eos % (Auto) Lymph # [place] # Lymph # (Auto) [place] # (Auto) Seg Neutrophils % Seg Neuts % (Manual) Lymphocytes % (Manual) Seg Neutrophils # Seg Neutrophils # Man Lymphocytes # (Manual) Monocytes % (Manual) Eosinophils % (Manual) Monocytes # (Manual) Eosinophils # (Manual) D-Dimer Heparin Anti-Xa Level ABG pH POC ABG pCO2 POC ABG pO2 ABG pO2 ABG HCO3 ABG O2 Saturation ABG Base Excess ABG Hemoglobin ABG Oxyhemoglobin VBG pH Oxyhemoglobin Sodium Potassium Chloride Carbon Dioxide BUN Creatinine Glucose POC Glucose 166 H 135 H 218 H Lactic Acid Calcium Ferritin AST Alkaline Phosphatase Magnesium Lactate Dehydrogenase Total Creatine Kinase CK-MB (CK-2) C-Reactive Protein Total Protein Albumin Troponin T HDL Cholesterol Urine WBC (Auto) Urine Creatinine Urine Total Protein Coronavirus (PCR) Crossmatch 06/20/20 06/20/20 06/20/20 12:04 16:25 16:35 WBC RBC Hgb Hct MCHC RDW Lymph % (Auto) [place] % (Auto) Eos % (Auto) Lymph # [place] # Lymph # (Auto) [place] # (Auto) Seg Neutrophils % Seg Neuts % (Manual) Lymphocytes % (Manual) Seg Neutrophils # Seg Neutrophils # Man Lymphocytes # (Manual) Monocytes % (Manual) Eosinophils % (Manual) Monocytes # (Manual) Eosinophils # (Manual) D-Dimer Heparin Anti-Xa Level ABG pH POC ABG pCO2 POC ABG pO2 ABG pO2 59.6 L ABG HCO3 28.7 H ABG O2 Saturation 93.5 L ABG Base Excess 3.4 H ABG Hemoglobin 7.2 L ABG Oxyhemoglobin VBG pH Oxyhemoglobin 91.3 L Sodium Potassium Chloride Carbon Dioxide BUN Creatinine Glucose POC Glucose 194 H 137 H Lactic Acid Calcium Ferritin AST Alkaline Phosphatase Magnesium Lactate Dehydrogenase Total Creatine Kinase CK-MB (CK-2) C-Reactive Protein Total Protein Albumin Troponin T HDL Cholesterol Urine WBC (Auto) Urine Creatinine Urine Total Protein Coronavirus (PCR) Crossmatch 06/20/20 06/21/20 06/21/20 23:59 06:25 12:01 WBC RBC Hgb Hct MCHC RDW Lymph % (Auto) [place] % (Auto) Eos % (Auto) Lymph # [place] # Lymph # (Auto) [place] # (Auto) Seg Neutrophils % Seg Neuts % (Manual) Lymphocytes % (Manual) Seg Neutrophils # Seg Neutrophils # Man Lymphocytes # (Manual) Monocytes % (Manual) Eosinophils % (Manual) Monocytes # (Manual) Eosinophils # (Manual) D-Dimer Heparin Anti-Xa Level ABG pH POC ABG pCO2 POC ABG pO2 ABG pO2 ABG HCO3 ABG O2 Saturation ABG Base Excess ABG Hemoglobin ABG Oxyhemoglobin VBG pH Oxyhemoglobin Sodium Potassium Chloride Carbon Dioxide BUN Creatinine Glucose POC Glucose 156 H 177 H 195 H Lactic Acid Calcium Ferritin AST Alkaline Phosphatase Magnesium Lactate Dehydrogenase Total Creatine Kinase CK-MB (CK-2) C-Reactive Protein Total Protein Albumin Troponin T HDL Cholesterol Urine WBC (Auto) Urine Creatinine Urine Total Protein Coronavirus (PCR) Crossmatch 06/21/20 06/21/20 06/22/20 17:04 21:51 05:06 WBC RBC Hgb Hct MCHC RDW Lymph % (Auto) [place] % (Auto) Eos % (Auto) Lymph # [place] # Lymph # (Auto) [place] # (Auto) Seg Neutrophils % Seg Neuts % (Manual) Lymphocytes % (Manual) Seg Neutrophils # Seg Neutrophils # Man Lymphocytes # (Manual) Monocytes % (Manual) Eosinophils % (Manual) Monocytes # (Manual) Eosinophils # (Manual) D-Dimer Heparin Anti-Xa Level ABG pH POC ABG pCO2 POC ABG pO2 ABG pO2 ABG HCO3 ABG O2 Saturation ABG Base Excess ABG Hemoglobin ABG Oxyhemoglobin VBG pH Oxyhemoglobin Sodium Potassium Chloride Carbon Dioxide BUN Creatinine Glucose POC Glucose 156 H 154 H 167 H Lactic Acid Calcium Ferritin AST Alkaline Phosphatase Magnesium Lactate Dehydrogenase Total Creatine Kinase CK-MB (CK-2) C-Reactive Protein Total Protein Albumin Troponin T HDL Cholesterol Urine WBC (Auto) Urine Creatinine Urine Total Protein Coronavirus (PCR) Crossmatch 06/22/20 06/22/20 06/22/20 11:20 15:27 16:58 WBC RBC Hgb Hct MCHC RDW Lymph % (Auto) [place] % (Auto) Eos % (Auto) Lymph # [place] # Lymph # (Auto) [place] # (Auto) Seg Neutrophils % Seg Neuts % (Manual) Lymphocytes % (Manual) Seg Neutrophils # Seg Neutrophils # Man Lymphocytes # (Manual) Monocytes % (Manual) Eosinophils % (Manual) Monocytes # (Manual) Eosinophils # (Manual) D-Dimer Heparin Anti-Xa Level ABG pH 7.206 L POC ABG pCO2 79.9 H POC ABG pO2 ABG pO2 ABG HCO3 ABG O2 Saturation ABG Base Excess ABG Hemoglobin 8.3 L ABG Oxyhemoglobin VBG pH Oxyhemoglobin Sodium Potassium Chloride Carbon Dioxide BUN Creatinine Glucose POC Glucose 181 H 230 H Lactic Acid Calcium Ferritin AST Alkaline Phosphatase Magnesium Lactate Dehydrogenase Total Creatine Kinase CK-MB (CK-2) C-Reactive Protein Total Protein Albumin Troponin T HDL Cholesterol Urine WBC (Auto) Urine Creatinine Urine Total Protein Coronavirus (PCR) Crossmatch 06/22/20 06/23/20 06/23/20 22:26 05:49 05:49 WBC RBC 2.58 L Hgb 7.4 L Hct 23.2 L MCHC RDW 17.0 H Lymph % (Auto) [place] % (Auto) 11.2 H Eos % (Auto) Lymph # 1.0 L [place] # Lymph # (Auto) [place] # (Auto) Seg Neutrophils % Seg Neuts % (Manual) Lymphocytes % (Manual) Seg Neutrophils # Seg Neutrophils # Man Lymphocytes # (Manual) Monocytes % (Manual) Eosinophils % (Manual) Monocytes # (Manual) Eosinophils # (Manual) D-Dimer Heparin Anti-Xa Level ABG pH POC ABG pCO2 POC ABG pO2 ABG pO2 ABG HCO3 ABG O2 Saturation ABG Base Excess ABG Hemoglobin ABG Oxyhemoglobin VBG pH Oxyhemoglobin Sodium Potassium Chloride Carbon Dioxide BUN 68 H Creatinine 2.4 H Glucose 198 H POC Glucose 195 H Lactic Acid Calcium Ferritin AST Alkaline Phosphatase Magnesium Lactate Dehydrogenase Total Creatine Kinase CK-MB (CK-2) C-Reactive Protein Total Protein Albumin Troponin T HDL Cholesterol Urine WBC (Auto) Urine Creatinine Urine Total Protein Coronavirus (PCR) Crossmatch 06/23/20 06/23/20 06/23/20 05:50 12:29 12:34 WBC RBC Hgb Hct MCHC RDW Lymph % (Auto) [place] % (Auto) Eos % (Auto) Lymph # [place] # Lymph # (Auto) [place] # (Auto) Seg Neutrophils % Seg Neuts % (Manual) Lymphocytes % (Manual) Seg Neutrophils # Seg Neutrophils # Man Lymphocytes # (Manual) Monocytes % (Manual) Eosinophils % (Manual) Monocytes # (Manual) Eosinophils # (Manual) D-Dimer Heparin Anti-Xa Level ABG pH POC ABG pCO2 54.7 H POC ABG pO2 68.8 L ABG pO2 ABG HCO3 ABG O2 Saturation ABG Base Excess ABG Hemoglobin 9.8 L ABG Oxyhemoglobin 92.6 L VBG pH Oxyhemoglobin Sodium Potassium Chloride Carbon Dioxide BUN Creatinine Glucose POC Glucose 202 H 218 H Lactic Acid Calcium Ferritin AST Alkaline Phosphatase Magnesium Lactate Dehydrogenase Total Creatine Kinase CK-MB (CK-2) C-Reactive Protein Total Protein Albumin Troponin T HDL Cholesterol Urine WBC (Auto) Urine Creatinine Urine Total Protein Coronavirus (PCR) Crossmatch 06/23/20 06/23/20 06/24/20 16:02 22:22 01:06 WBC RBC Hgb Hct MCHC RDW Lymph % (Auto) [place] % (Auto) Eos % (Auto) Lymph # [place] # Lymph # (Auto) [place] # (Auto) Seg Neutrophils % Seg Neuts % (Manual) Lymphocytes % (Manual) Seg Neutrophils # Seg Neutrophils # Man Lymphocytes # (Manual) Monocytes % (Manual) Eosinophils % (Manual) Monocytes # (Manual) Eosinophils # (Manual) D-Dimer Heparin Anti-Xa Level ABG pH POC ABG pCO2 POC ABG pO2 ABG pO2 ABG HCO3 ABG O2 Saturation ABG Base Excess ABG Hemoglobin ABG Oxyhemoglobin VBG pH Oxyhemoglobin Sodium Potassium Chloride Carbon Dioxide BUN Creatinine Glucose POC Glucose 190 H 166 H 171 H Lactic Acid Calcium Ferritin AST Alkaline Phosphatase Magnesium Lactate Dehydrogenase Total Creatine Kinase CK-MB (CK-2) C-Reactive Protein Total Protein Albumin Troponin T HDL Cholesterol Urine WBC (Auto) Urine Creatinine Urine Total Protein Coronavirus (PCR) Crossmatch 06/24/20 06/24/20 06/24/20 04:48 05:35 11:48 WBC RBC Hgb Hct MCHC RDW Lymph % (Auto) [place] % (Auto) Eos % (Auto) Lymph # [place] # Lymph # (Auto) [place] # (Auto) Seg Neutrophils % Seg Neuts % (Manual) Lymphocytes % (Manual) Seg Neutrophils # Seg Neutrophils # Man Lymphocytes # (Manual) Monocytes % (Manual) Eosinophils % (Manual) Monocytes # (Manual) Eosinophils # (Manual) D-Dimer Heparin Anti-Xa Level ABG pH POC ABG pCO2 POC ABG pO2 ABG pO2 ABG HCO3 ABG O2 Saturation ABG Base Excess ABG Hemoglobin ABG Oxyhemoglobin VBG pH Oxyhemoglobin Sodium Potassium Chloride Carbon Dioxide BUN 75 H Creatinine 2.6 H Glucose 179 H POC Glucose 172 H 153 H Lactic Acid Calcium Ferritin AST Alkaline Phosphatase Magnesium Lactate Dehydrogenase Total Creatine Kinase CK-MB (CK-2) C-Reactive Protein Total Protein Albumin Troponin T HDL Cholesterol Urine WBC (Auto) Urine Creatinine Urine Total Protein Coronavirus (PCR) Crossmatch 06/24/20 06/24/20 06/25/20 16:38 21:52 12:00 WBC RBC Hgb Hct MCHC RDW Lymph % (Auto) [place] % (Auto) Eos % (Auto) Lymph # [place] # Lymph # (Auto) [place] # (Auto) Seg Neutrophils % Seg Neuts % (Manual) Lymphocytes % (Manual) Seg Neutrophils # Seg Neutrophils # Man Lymphocytes # (Manual) Monocytes % (Manual) Eosinophils % (Manual) Monocytes # (Manual) Eosinophils # (Manual) D-Dimer Heparin Anti-Xa Level ABG pH POC ABG pCO2 POC ABG pO2 ABG pO2 ABG HCO3 ABG O2 Saturation ABG Base Excess ABG Hemoglobin ABG Oxyhemoglobin VBG pH Oxyhemoglobin Sodium Potassium Chloride Carbon Dioxide BUN Creatinine Glucose POC Glucose 123 H 115 H 203 H Lactic Acid Calcium Ferritin AST Alkaline Phosphatase Magnesium Lactate Dehydrogenase Total Creatine Kinase CK-MB (CK-2) C-Reactive Protein Total Protein Albumin Troponin T HDL Cholesterol Urine WBC (Auto) Urine Creatinine Urine Total Protein Coronavirus (PCR) Crossmatch 06/25/20 06/25/20 06/25/20 15:43 16:37 23:02 WBC RBC Hgb Hct MCHC RDW Lymph % (Auto) [place] % (Auto) Eos % (Auto) Lymph # [place] # Lymph # (Auto) [place] # (Auto) Seg Neutrophils % Seg Neuts % (Manual) Lymphocytes % (Manual) Seg Neutrophils # Seg Neutrophils # Man Lymphocytes # (Manual) Monocytes % (Manual) Eosinophils % (Manual) Monocytes # (Manual) Eosinophils # (Manual) D-Dimer Heparin Anti-Xa Level ABG pH POC ABG pCO2 POC ABG pO2 ABG pO2 ABG HCO3 ABG O2 Saturation ABG Base Excess ABG Hemoglobin ABG Oxyhemoglobin VBG pH Oxyhemoglobin Sodium Potassium Chloride Carbon Dioxide BUN 71 H Creatinine 1.8 H Glucose 170 H POC Glucose 191 H 126 H Lactic Acid Calcium 8.2 L Ferritin AST Alkaline Phosphatase Magnesium Lactate Dehydrogenase Total Creatine Kinase CK-MB (CK-2) C-Reactive Protein Total Protein Albumin Troponin T HDL Cholesterol Urine WBC (Auto) Urine Creatinine Urine Total Protein Coronavirus (PCR) Crossmatch 06/26/20 06/26/20 06/26/20 06:34 06:34 09:27 WBC RBC 2.41 L Hgb 6.9 L Hct 21.5 L MCHC RDW 16.7 H Lymph % (Auto) 10.9 L [place] % (Auto) 9.6 H Eos % (Auto) Lymph # 0.7 L [place] # Lymph # (Auto) [place] # (Auto) Seg Neutrophils % 75.4 H Seg Neuts % (Manual) Lymphocytes % (Manual) Seg Neutrophils # Seg Neutrophils # Man Lymphocytes # (Manual) Monocytes % (Manual) Eosinophils % (Manual) Monocytes # (Manual) Eosinophils # (Manual) D-Dimer Heparin Anti-Xa Level ABG pH POC ABG pCO2 POC ABG pO2 ABG pO2 ABG HCO3 ABG O2 Saturation ABG Base Excess ABG Hemoglobin ABG Oxyhemoglobin VBG pH Oxyhemoglobin Sodium Potassium Chloride Carbon Dioxide BUN 77 H Creatinine 1.9 H Glucose 190 H POC Glucose Lactic Acid Calcium Ferritin AST Alkaline Phosphatase Magnesium Lactate Dehydrogenase Total Creatine Kinase CK-MB (CK-2) C-Reactive Protein Total Protein Albumin Troponin T HDL Cholesterol Urine WBC (Auto) Urine Creatinine Urine Total Protein Coronavirus (PCR) Crossmatch See Detail 06/26/20 06/26/20 06/26/20 12:15 16:28 17:28 WBC RBC Hgb Hct MCHC RDW Lymph % (Auto) [place] % (Auto) Eos % (Auto) Lymph # [place] # Lymph # (Auto) [place] # (Auto) Seg Neutrophils % Seg Neuts % (Manual) Lymphocytes % (Manual) Seg Neutrophils # Seg Neutrophils # Man Lymphocytes # (Manual) Monocytes % (Manual) Eosinophils % (Manual) Monocytes # (Manual) Eosinophils # (Manual) D-Dimer Heparin Anti-Xa Level ABG pH POC ABG pCO2 POC ABG pO2 ABG pO2 ABG HCO3 ABG O2 Saturation ABG Base Excess ABG Hemoglobin ABG Oxyhemoglobin VBG pH Oxyhemoglobin Sodium Potassium Chloride Carbon Dioxide BUN Creatinine Glucose POC Glucose 187 H 149 H 189 H Lactic Acid Calcium Ferritin AST Alkaline Phosphatase Magnesium Lactate Dehydrogenase Total Creatine Kinase CK-MB (CK-2) C-Reactive Protein Total Protein Albumin Troponin T HDL Cholesterol Urine WBC (Auto) Urine Creatinine Urine Total Protein Coronavirus (PCR) Crossmatch 06/26/20 06/26/20 06/26/20 18:30 18:30 18:30 WBC RBC 2.87 L Hgb 8.2 L Hct 25.9 L MCHC RDW 17.8 H Lymph % (Auto) [place] % (Auto) Eos % (Auto) Lymph # [place] # Lymph # (Auto) [place] # (Auto) Seg Neutrophils % Seg Neuts % (Manual) 83.0 H Lymphocytes % (Manual) 8.0 L Seg Neutrophils # Seg Neutrophils # Man Lymphocytes # (Manual) 0.6 L Monocytes % (Manual) Eosinophils % (Manual) Monocytes # (Manual) Eosinophils # (Manual) D-Dimer Heparin Anti-Xa Level ABG pH POC ABG pCO2 POC ABG pO2 ABG pO2 ABG HCO3 ABG O2 Saturation ABG Base Excess ABG Hemoglobin ABG Oxyhemoglobin VBG pH Oxyhemoglobin Sodium Potassium Chloride Carbon Dioxide BUN 80 H Creatinine 2.1 H Glucose 260 H POC Glucose Lactic Acid 4.30 H* Calcium 8.3 L Ferritin AST Alkaline Phosphatase Magnesium Lactate Dehydrogenase Total Creatine Kinase CK-MB (CK-2) C-Reactive Protein Total Protein Albumin Troponin T HDL Cholesterol Urine WBC (Auto) Urine Creatinine Urine Total Protein Coronavirus (PCR) Crossmatch 06/26/20 06/27/20 06/27/20 18:50 01:00 04:29 WBC RBC Hgb Hct MCHC RDW Lymph % (Auto) [place] % (Auto) Eos % (Auto) Lymph # [place] # Lymph # (Auto) [place] # (Auto) Seg Neutrophils % Seg Neuts % (Manual) Lymphocytes % (Manual) Seg Neutrophils # Seg Neutrophils # Man Lymphocytes # (Manual) Monocytes % (Manual) Eosinophils % (Manual) Monocytes # (Manual) Eosinophils # (Manual) D-Dimer Heparin Anti-Xa Level ABG pH 7.296 L POC ABG pCO2 POC ABG pO2 ABG pO2 116.5 H 200.5 H ABG HCO3 28.4 H ABG O2 Saturation 99.3 H ABG Base Excess 3.7 H ABG Hemoglobin 5.6 L ABG Oxyhemoglobin VBG pH Oxyhemoglobin Sodium Potassium Chloride Carbon Dioxide BUN Creatinine Glucose POC Glucose 123 H Lactic Acid Calcium Ferritin AST Alkaline Phosphatase Magnesium Lactate Dehydrogenase Total Creatine Kinase CK-MB (CK-2) C-Reactive Protein Total Protein Albumin Troponin T HDL Cholesterol Urine WBC (Auto) Urine Creatinine Urine Total Protein Coronavirus (PCR) Crossmatch 06/27/20 06/27/20 06/27/20 05:00 05:00 05:00 WBC RBC 2.75 L Hgb 7.9 L Hct 24.3 L MCHC RDW 17.1 H Lymph % (Auto) 8.5 L [place] % (Auto) 12.6 H Eos % (Auto) Lymph # 0.7 L [place] # 1.0 H Lymph # (Auto) [place] # (Auto) Seg Neutrophils % 77.5 H Seg Neuts % (Manual) Lymphocytes % (Manual) Seg Neutrophils # Seg Neutrophils # Man Lymphocytes # (Manual) Monocytes % (Manual) Eosinophils % (Manual) Monocytes # (Manual) Eosinophils # (Manual) D-Dimer Heparin Anti-Xa Level ABG pH POC ABG pCO2 POC ABG pO2 ABG pO2 ABG HCO3 ABG O2 Saturation ABG Base Excess ABG Hemoglobin ABG Oxyhemoglobin VBG pH Oxyhemoglobin Sodium Potassium Chloride Carbon Dioxide BUN 80 H Creatinine 2.0 H Glucose 129 H POC Glucose Lactic Acid 0.60 L Calcium 7.9 L Ferritin AST Alkaline Phosphatase Magnesium Lactate Dehydrogenase Total Creatine Kinase CK-MB (CK-2) C-Reactive Protein Total Protein Albumin Troponin T HDL Cholesterol Urine WBC (Auto) Urine Creatinine Urine Total Protein Coronavirus (PCR) Crossmatch 06/27/20 06/27/20 06/27/20 05:23 13:46 17:25 WBC RBC Hgb Hct MCHC RDW Lymph % (Auto) [place] % (Auto) Eos % (Auto) Lymph # [place] # Lymph # (Auto) [place] # (Auto) Seg Neutrophils % Seg Neuts % (Manual) Lymphocytes % (Manual) Seg Neutrophils # Seg Neutrophils # Man Lymphocytes # (Manual) Monocytes % (Manual) Eosinophils % (Manual) Monocytes # (Manual) Eosinophils # (Manual) D-Dimer Heparin Anti-Xa Level ABG pH POC ABG pCO2 POC ABG pO2 ABG pO2 ABG HCO3 ABG O2 Saturation ABG Base Excess ABG Hemoglobin ABG Oxyhemoglobin VBG pH Oxyhemoglobin Sodium Potassium Chloride Carbon Dioxide BUN Creatinine Glucose POC Glucose 109 H 158 H 162 H Lactic Acid Calcium Ferritin AST Alkaline Phosphatase Magnesium Lactate Dehydrogenase Total Creatine Kinase CK-MB (CK-2) C-Reactive Protein Total Protein Albumin Troponin T HDL Cholesterol Urine WBC (Auto) Urine Creatinine Urine Total Protein Coronavirus (PCR) Crossmatch 06/27/20 06/27/20 06/28/20 18:43 23:46 04:05 WBC RBC Hgb 7.7 L Hct 22.1 L MCHC RDW Lymph % (Auto) [place] % (Auto) Eos % (Auto) Lymph # [place] # Lymph # (Auto) [place] # (Auto) Seg Neutrophils % Seg Neuts % (Manual) Lymphocytes % (Manual) Seg Neutrophils # Seg Neutrophils # Man Lymphocytes # (Manual) Monocytes % (Manual) Eosinophils % (Manual) Monocytes # (Manual) Eosinophils # (Manual) D-Dimer Heparin Anti-Xa Level ABG pH POC ABG pCO2 POC ABG pO2 ABG pO2 102.7 H ABG HCO3 28.7 H ABG O2 Saturation ABG Base Excess 3.7 H ABG Hemoglobin ABG Oxyhemoglobin VBG pH Oxyhemoglobin Sodium Potassium Chloride Carbon Dioxide BUN Creatinine Glucose POC Glucose 142 H Lactic Acid Calcium Ferritin AST Alkaline Phosphatase Magnesium Lactate Dehydrogenase Total Creatine Kinase CK-MB (CK-2) C-Reactive Protein Total Protein Albumin Troponin T HDL Cholesterol Urine WBC (Auto) Urine Creatinine Urine Total Protein Coronavirus (PCR) Crossmatch 06/28/20 06/28/20 06/28/20 09:47 09:47 12:02 WBC RBC 2.53 L Hgb 7.4 L Hct 22.2 L MCHC RDW 16.8 H Lymph % (Auto) [place] % (Auto) 13.5 H Eos % (Auto) Lymph # 1.1 L [place] # 1.0 H Lymph # (Auto) [place] # (Auto) Seg Neutrophils % Seg Neuts % (Manual) Lymphocytes % (Manual) Seg Neutrophils # Seg Neutrophils # Man Lymphocytes # (Manual) Monocytes % (Manual) Eosinophils % (Manual) Monocytes # (Manual) Eosinophils # (Manual) D-Dimer Heparin Anti-Xa Level ABG pH POC ABG pCO2 POC ABG pO2 ABG pO2 ABG HCO3 ABG O2 Saturation ABG Base Excess ABG Hemoglobin ABG Oxyhemoglobin VBG pH Oxyhemoglobin Sodium Potassium Chloride Carbon Dioxide BUN 80 H Creatinine 1.5 H Glucose 139 H POC Glucose 169 H Lactic Acid Calcium 7.9 L Ferritin AST Alkaline Phosphatase Magnesium Lactate Dehydrogenase Total Creatine Kinase CK-MB (CK-2) C-Reactive Protein Total Protein 5.0 L Albumin 2.1 L Troponin T HDL Cholesterol Urine WBC (Auto) Urine Creatinine Urine Total Protein Coronavirus (PCR) Crossmatch 06/28/20 06/28/20 06/28/20 12:30 12:30 17:24 WBC RBC 2.38 L Hgb 7.3 L Hct 20.9 L MCHC 35 H RDW 16.7 H Lymph % (Auto) [place] % (Auto) Eos % (Auto) Lymph # [place] # Lymph # (Auto) [place] # (Auto) Seg Neutrophils % Seg Neuts % (Manual) Lymphocytes % (Manual) Seg Neutrophils # Seg Neutrophils # Man Lymphocytes # (Manual) Monocytes % (Manual) Eosinophils % (Manual) Monocytes # (Manual) Eosinophils # (Manual) D-Dimer Heparin Anti-Xa Level ABG pH POC ABG pCO2 POC ABG pO2 ABG pO2 ABG HCO3 ABG O2 Saturation ABG Base Excess ABG Hemoglobin ABG Oxyhemoglobin VBG pH Oxyhemoglobin Sodium Potassium Chloride Carbon Dioxide BUN 74 H Creatinine 1.5 H Glucose 143 H POC Glucose 173 H Lactic Acid Calcium 7.5 L Ferritin AST Alkaline Phosphatase Magnesium Lactate Dehydrogenase Total Creatine Kinase CK-MB (CK-2) C-Reactive Protein Total Protein Albumin Troponin T HDL Cholesterol Urine WBC (Auto) Urine Creatinine Urine Total Protein Coronavirus (PCR) Crossmatch 06/29/20 06/29/20 06/29/20 00:02 03:54 04:38 WBC RBC 2.55 L Hgb 7.3 L Hct 22.4 L MCHC RDW 16.4 H Lymph % (Auto) 13.3 L [place] % (Auto) 12.5 H Eos % (Auto) Lymph # 1.1 L [place] # 1.0 H Lymph # (Auto) [place] # (Auto) Seg Neutrophils % Seg Neuts % (Manual) Lymphocytes % (Manual) Seg Neutrophils # Seg Neutrophils # Man Lymphocytes # (Manual) Monocytes % (Manual) Eosinophils % (Manual) Monocytes # (Manual) Eosinophils # (Manual) D-Dimer Heparin Anti-Xa Level ABG pH POC ABG pCO2 POC ABG pO2 ABG pO2 ABG HCO3 26.9 H ABG O2 Saturation ABG Base Excess ABG Hemoglobin 6.9 L ABG Oxyhemoglobin VBG pH Oxyhemoglobin Sodium Potassium Chloride Carbon Dioxide BUN Creatinine Glucose POC Glucose 142 H Lactic Acid Calcium Ferritin AST Alkaline Phosphatase Magnesium Lactate Dehydrogenase Total Creatine Kinase CK-MB (CK-2) C-Reactive Protein Total Protein Albumin Troponin T HDL Cholesterol Urine WBC (Auto) Urine Creatinine Urine Total Protein Coronavirus (PCR) Crossmatch 06/29/20 06/29/20 06/29/20 04:38 05:38 12:25 WBC RBC Hgb Hct MCHC RDW Lymph % (Auto) [place] % (Auto) Eos % (Auto) Lymph # [place] # Lymph # (Auto) [place] # (Auto) Seg Neutrophils % Seg Neuts % (Manual) Lymphocytes % (Manual) Seg Neutrophils # Seg Neutrophils # Man Lymphocytes # (Manual) Monocytes % (Manual) Eosinophils % (Manual) Monocytes # (Manual) Eosinophils # (Manual) D-Dimer Heparin Anti-Xa Level ABG pH POC ABG pCO2 POC ABG pO2 ABG pO2 ABG HCO3 ABG O2 Saturation ABG Base Excess ABG Hemoglobin ABG Oxyhemoglobin VBG pH Oxyhemoglobin Sodium Potassium Chloride 107.8 H Carbon Dioxide BUN 72 H Creatinine 1.4 H Glucose 127 H POC Glucose 122 H 138 H Lactic Acid Calcium 7.4 L Ferritin AST Alkaline Phosphatase Magnesium Lactate Dehydrogenase Total Creatine Kinase CK-MB (CK-2) C-Reactive Protein Total Protein Albumin Troponin T HDL Cholesterol Urine WBC (Auto) Urine Creatinine Urine Total Protein Coronavirus (PCR) Crossmatch 06/29/20 06/29/20 06/29/20 14:45 14:45 14:45 WBC RBC Hgb Hct MCHC RDW Lymph % (Auto) [place] % (Auto) Eos % (Auto) Lymph # [place] # Lymph # (Auto) [place] # (Auto) Seg Neutrophils % Seg Neuts % (Manual) Lymphocytes % (Manual) Seg Neutrophils # Seg Neutrophils # Man Lymphocytes # (Manual) Monocytes % (Manual) Eosinophils % (Manual) Monocytes # (Manual) Eosinophils # (Manual) D-Dimer 2310.15 H Heparin Anti-Xa Level ABG pH POC ABG pCO2 POC ABG pO2 ABG pO2 ABG HCO3 ABG O2 Saturation ABG Base Excess ABG Hemoglobin ABG Oxyhemoglobin VBG pH Oxyhemoglobin Sodium Potassium Chloride Carbon Dioxide BUN Creatinine Glucose POC Glucose Lactic Acid Calcium Ferritin 223.6 H AST Alkaline Phosphatase Magnesium Lactate Dehydrogenase 367 H Total Creatine Kinase CK-MB (CK-2) C-Reactive Protein 3.60 H Total Protein Albumin Troponin T HDL Cholesterol Urine WBC (Auto) Urine Creatinine Urine Total Protein Coronavirus (PCR) Crossmatch 06/29/20 06/29/20 06/29/20 18:27 23:35 Unknown WBC RBC Hgb Hct MCHC RDW Lymph % (Auto) [place] % (Auto) Eos % (Auto) Lymph # [place] # Lymph # (Auto) [place] # (Auto) Seg Neutrophils % Seg Neuts % (Manual) Lymphocytes % (Manual) Seg Neutrophils # Seg Neutrophils # Man Lymphocytes # (Manual) Monocytes % (Manual) Eosinophils % (Manual) Monocytes # (Manual) Eosinophils # (Manual) D-Dimer Heparin Anti-Xa Level ABG pH POC ABG pCO2 POC ABG pO2 ABG pO2 ABG HCO3 ABG O2 Saturation ABG Base Excess ABG Hemoglobin ABG Oxyhemoglobin VBG pH Oxyhemoglobin Sodium Potassium Chloride Carbon Dioxide BUN Creatinine Glucose POC Glucose 112 H 140 H Lactic Acid Calcium Ferritin AST Alkaline Phosphatase Magnesium Lactate Dehydrogenase Total Creatine Kinase CK-MB (CK-2) C-Reactive Protein Total Protein Albumin Troponin T HDL Cholesterol Urine WBC (Auto) Urine Creatinine Urine Total Protein Coronavirus (PCR) Positive A Crossmatch 06/30/20 06/30/20 06/30/20 04:10 04:10 06:09 WBC RBC 2.44 L Hgb 7.1 L Hct 21.5 L MCHC RDW 16.6 H Lymph % (Auto) 11.0 L [place] % (Auto) 10.8 H Eos % (Auto) Lymph # 0.9 L [place] # 0.9 H Lymph # (Auto) [place] # (Auto) Seg Neutrophils % 73.7 H Seg Neuts % (Manual) Lymphocytes % (Manual) Seg Neutrophils # Seg Neutrophils # Man Lymphocytes # (Manual) Monocytes % (Manual) Eosinophils % (Manual) Monocytes # (Manual) Eosinophils # (Manual) D-Dimer Heparin Anti-Xa Level ABG pH POC ABG pCO2 POC ABG pO2 ABG pO2 ABG HCO3 ABG O2 Saturation ABG Base Excess ABG Hemoglobin ABG Oxyhemoglobin VBG pH Oxyhemoglobin Sodium Potassium Chloride 109.1 H Carbon Dioxide BUN 74 H Creatinine 1.3 H Glucose 191 H POC Glucose 187 H Lactic Acid Calcium 7.8 L Ferritin AST Alkaline Phosphatase Magnesium Lactate Dehydrogenase Total Creatine Kinase CK-MB (CK-2) C-Reactive Protein Total Protein Albumin Troponin T HDL Cholesterol Urine WBC (Auto) Urine Creatinine Urine Total Protein Coronavirus (PCR) Crossmatch 06/30/20 06/30/20 06/30/20 12:04 17:43 23:41 WBC RBC Hgb Hct MCHC RDW Lymph % (Auto) [place] % (Auto) Eos % (Auto) Lymph # [place] # Lymph # (Auto) [place] # (Auto) Seg Neutrophils % Seg Neuts % (Manual) Lymphocytes % (Manual) Seg Neutrophils # Seg Neutrophils # Man Lymphocytes # (Manual) Monocytes % (Manual) Eosinophils % (Manual) Monocytes # (Manual) Eosinophils # (Manual) D-Dimer Heparin Anti-Xa Level ABG pH POC ABG pCO2 POC ABG pO2 ABG pO2 ABG HCO3 ABG O2 Saturation ABG Base Excess ABG Hemoglobin ABG Oxyhemoglobin VBG pH Oxyhemoglobin Sodium Potassium Chloride Carbon Dioxide BUN Creatinine Glucose POC Glucose 112 H 177 H 143 H Lactic Acid Calcium Ferritin AST Alkaline Phosphatase Magnesium Lactate Dehydrogenase Total Creatine Kinase CK-MB (CK-2) C-Reactive Protein Total Protein Albumin Troponin T HDL Cholesterol Urine WBC (Auto) Urine Creatinine Urine Total Protein Coronavirus (PCR) Crossmatch 07/01/20 07/01/20 07/01/20 05:02 05:52 06:01 WBC 12.6 H RBC 2.95 L Hgb 8.2 L Hct 26.0 L MCHC RDW 16.9 H Lymph % (Auto) [place] % (Auto) Eos % (Auto) Lymph # [place] # Lymph # (Auto) [place] # (Auto) Seg Neutrophils % Seg Neuts % (Manual) Lymphocytes % (Manual) Seg Neutrophils # Seg Neutrophils # Man 8.6 H Lymphocytes # (Manual) Monocytes % (Manual) Eosinophils % (Manual) 5.0 H Monocytes # (Manual) Eosinophils # (Manual) 0.6 H D-Dimer Heparin Anti-Xa Level ABG pH POC ABG pCO2 POC ABG pO2 ABG pO2 ABG HCO3 ABG O2 Saturation ABG Base Excess ABG Hemoglobin 8.2 L ABG Oxyhemoglobin VBG pH Oxyhemoglobin Sodium Potassium Chloride Carbon Dioxide BUN Creatinine Glucose POC Glucose 129 H Lactic Acid Calcium Ferritin AST Alkaline Phosphatase Magnesium Lactate Dehydrogenase Total Creatine Kinase CK-MB (CK-2) C-Reactive Protein Total Protein Albumin Troponin T HDL Cholesterol Urine WBC (Auto) Urine Creatinine Urine Total Protein Coronavirus (PCR) Crossmatch 07/01/20 07/01/20 07/01/20 06:01 06:01 06:08 WBC RBC Hgb Hct MCHC RDW Lymph % (Auto) [place] % (Auto) Eos % (Auto) Lymph # [place] # Lymph # (Auto) [place] # (Auto) Seg Neutrophils % Seg Neuts % (Manual) Lymphocytes % (Manual) Seg Neutrophils # Seg Neutrophils # Man Lymphocytes # (Manual) Monocytes % (Manual) Eosinophils % (Manual) Monocytes # (Manual) Eosinophils # (Manual) D-Dimer Heparin Anti-Xa Level ABG pH POC ABG pCO2 POC ABG pO2 ABG pO2 ABG HCO3 ABG O2 Saturation ABG Base Excess ABG Hemoglobin ABG Oxyhemoglobin VBG pH Oxyhemoglobin Sodium 147 H Potassium Chloride 108.0 H Carbon Dioxide BUN 71 H Creatinine 1.3 H Glucose 193 H POC Glucose 192 H Lactic Acid Calcium 8.1 L Ferritin AST Alkaline Phosphatase Magnesium Lactate Dehydrogenase Total Creatine Kinase 300 H CK-MB (CK-2) C-Reactive Protein Total Protein Albumin Troponin T 0.067 H HDL Cholesterol 61 H Urine WBC (Auto) Urine Creatinine Urine Total Protein Coronavirus (PCR) Crossmatch 07/01/20 07/01/20 07/02/20 12:23 17:40 00:18 WBC RBC Hgb Hct MCHC RDW Lymph % (Auto) [place] % (Auto) Eos % (Auto) Lymph # [place] # Lymph # (Auto) [place] # (Auto) Seg Neutrophils % Seg Neuts % (Manual) Lymphocytes % (Manual) Seg Neutrophils # Seg Neutrophils # Man Lymphocytes # (Manual) Monocytes % (Manual) Eosinophils % (Manual) Monocytes # (Manual) Eosinophils # (Manual) D-Dimer Heparin Anti-Xa Level ABG pH POC ABG pCO2 POC ABG pO2 ABG pO2 ABG HCO3 ABG O2 Saturation ABG Base Excess ABG Hemoglobin ABG Oxyhemoglobin VBG pH Oxyhemoglobin Sodium Potassium Chloride Carbon Dioxide BUN Creatinine Glucose POC Glucose 111 H 135 H 145 H Lactic Acid Calcium Ferritin AST Alkaline Phosphatase Magnesium Lactate Dehydrogenase Total Creatine Kinase CK-MB (CK-2) C-Reactive Protein Total Protein Albumin Troponin T HDL Cholesterol Urine WBC (Auto) Urine Creatinine Urine Total Protein Coronavirus (PCR) Crossmatch 07/02/20 07/02/20 07/02/20 04:11 04:23 05:54 WBC RBC Hgb Hct MCHC RDW Lymph % (Auto) [place] % (Auto) Eos % (Auto) Lymph # [place] # Lymph # (Auto) [place] # (Auto) Seg Neutrophils % Seg Neuts % (Manual) Lymphocytes % (Manual) Seg Neutrophils # Seg Neutrophils # Man Lymphocytes # (Manual) Monocytes % (Manual) Eosinophils % (Manual) Monocytes # (Manual) Eosinophils # (Manual) D-Dimer Heparin Anti-Xa Level ABG pH POC ABG pCO2 POC ABG pO2 ABG pO2 ABG HCO3 ABG O2 Saturation ABG Base Excess ABG Hemoglobin 5.4 L ABG Oxyhemoglobin VBG pH Oxyhemoglobin Sodium Potassium Chloride 108.6 H Carbon Dioxide BUN 72 H Creatinine Glucose 112 H POC Glucose 137 H Lactic Acid Calcium 7.8 L Ferritin AST Alkaline Phosphatase Magnesium Lactate Dehydrogenase Total Creatine Kinase CK-MB (CK-2) C-Reactive Protein Total Protein Albumin Troponin T HDL Cholesterol Urine WBC (Auto) Urine Creatinine Urine Total Protein Coronavirus (PCR) Crossmatch 07/02/20 07/02/20 07/02/20 11:38 18:04 23:59 WBC RBC Hgb Hct MCHC RDW Lymph % (Auto) [place] % (Auto) Eos % (Auto) Lymph # [place] # Lymph # (Auto) [place] # (Auto) Seg Neutrophils % Seg Neuts % (Manual) Lymphocytes % (Manual) Seg Neutrophils # Seg Neutrophils # Man Lymphocytes # (Manual) Monocytes % (Manual) Eosinophils % (Manual) Monocytes # (Manual) Eosinophils # (Manual) D-Dimer Heparin Anti-Xa Level ABG pH POC ABG pCO2 POC ABG pO2 ABG pO2 ABG HCO3 ABG O2 Saturation ABG Base Excess ABG Hemoglobin ABG Oxyhemoglobin VBG pH Oxyhemoglobin Sodium Potassium Chloride Carbon Dioxide BUN Creatinine Glucose POC Glucose 128 H 135 H 156 H Lactic Acid Calcium Ferritin AST Alkaline Phosphatase Magnesium Lactate Dehydrogenase Total Creatine Kinase CK-MB (CK-2) C-Reactive Protein Total Protein Albumin Troponin T HDL Cholesterol Urine WBC (Auto) Urine Creatinine Urine Total Protein Coronavirus (PCR) Crossmatch 07/03/20 07/03/20 07/03/20 03:49 06:00 11:31 WBC RBC Hgb Hct MCHC RDW Lymph % (Auto) [place] % (Auto) Eos % (Auto) Lymph # [place] # Lymph # (Auto) [place] # (Auto) Seg Neutrophils % Seg Neuts % (Manual) Lymphocytes % (Manual) Seg Neutrophils # Seg Neutrophils # Man Lymphocytes # (Manual) Monocytes % (Manual) Eosinophils % (Manual) Monocytes # (Manual) Eosinophils # (Manual) D-Dimer Heparin Anti-Xa Level ABG pH POC ABG pCO2 POC ABG pO2 ABG pO2 121.0 H ABG HCO3 ABG O2 Saturation ABG Base Excess ABG Hemoglobin 8.5 L ABG Oxyhemoglobin VBG pH Oxyhemoglobin Sodium Potassium Chloride Carbon Dioxide BUN Creatinine Glucose POC Glucose 135 H 141 H Lactic Acid Calcium Ferritin AST Alkaline Phosphatase Magnesium Lactate Dehydrogenase Total Creatine Kinase CK-MB (CK-2) C-Reactive Protein Total Protein Albumin Troponin T HDL Cholesterol Urine WBC (Auto) Urine Creatinine Urine Total Protein Coronavirus (PCR) Crossmatch 07/03/20 07/03/20 07/04/20 16:07 17:40 05:49 WBC RBC Hgb Hct MCHC RDW Lymph % (Auto) [place] % (Auto) Eos % (Auto) Lymph # [place] # Lymph # (Auto) [place] # (Auto) Seg Neutrophils % Seg Neuts % (Manual) Lymphocytes % (Manual) Seg Neutrophils # Seg Neutrophils # Man Lymphocytes # (Manual) Monocytes % (Manual) Eosinophils % (Manual) Monocytes # (Manual) Eosinophils # (Manual) D-Dimer Heparin Anti-Xa Level ABG pH POC ABG pCO2 POC ABG pO2 ABG pO2 126.9 H ABG HCO3 ABG O2 Saturation ABG Base Excess ABG Hemoglobin 8.1 L ABG Oxyhemoglobin VBG pH Oxyhemoglobin Sodium Potassium Chloride Carbon Dioxide BUN Creatinine Glucose POC Glucose 120 H 128 H Lactic Acid Calcium Ferritin AST Alkaline Phosphatase Magnesium Lactate Dehydrogenase Total Creatine Kinase CK-MB (CK-2) C-Reactive Protein Total Protein Albumin Troponin T HDL Cholesterol Urine WBC (Auto) Urine Creatinine Urine Total Protein Coronavirus (PCR) Crossmatch 07/04/20 07/04/20 07/05/20 11:54 18:00 00:07 WBC RBC Hgb Hct MCHC RDW Lymph % (Auto) [place] % (Auto) Eos % (Auto) Lymph # [place] # Lymph # (Auto) [place] # (Auto) Seg Neutrophils % Seg Neuts % (Manual) Lymphocytes % (Manual) Seg Neutrophils # Seg Neutrophils # Man Lymphocytes # (Manual) Monocytes % (Manual) Eosinophils % (Manual) Monocytes # (Manual) Eosinophils # (Manual) D-Dimer Heparin Anti-Xa Level ABG pH POC ABG pCO2 POC ABG pO2 ABG pO2 ABG HCO3 ABG O2 Saturation ABG Base Excess ABG Hemoglobin ABG Oxyhemoglobin VBG pH Oxyhemoglobin Sodium Potassium Chloride Carbon Dioxide BUN Creatinine Glucose POC Glucose 168 H 133 H 121 H Lactic Acid Calcium Ferritin AST Alkaline Phosphatase Magnesium Lactate Dehydrogenase Total Creatine Kinase CK-MB (CK-2) C-Reactive Protein Total Protein Albumin Troponin T HDL Cholesterol Urine WBC (Auto) Urine Creatinine Urine Total Protein Coronavirus (PCR) Crossmatch 07/05/20 07/05/20 07/05/20 01:12 02:30 12:09 WBC RBC 2.35 L Hgb 6.9 L Hct 21.1 L MCHC RDW 16.8 H Lymph % (Auto) [place] % (Auto) Eos % (Auto) Lymph # [place] # Lymph # (Auto) [place] # (Auto) Seg Neutrophils % Seg Neuts % (Manual) 74.0 H Lymphocytes % (Manual) 12.0 L Seg Neutrophils # Seg Neutrophils # Man 8.0 H Lymphocytes # (Manual) Monocytes % (Manual) 9.0 H Eosinophils % (Manual) Monocytes # (Manual) 1.0 H Eosinophils # (Manual) D-Dimer Heparin Anti-Xa Level ABG pH POC ABG pCO2 POC ABG pO2 ABG pO2 ABG HCO3 ABG O2 Saturation ABG Base Excess ABG Hemoglobin ABG Oxyhemoglobin VBG pH Oxyhemoglobin Sodium Potassium Chloride Carbon Dioxide BUN Creatinine Glucose POC Glucose 132 H Lactic Acid Calcium Ferritin AST Alkaline Phosphatase Magnesium Lactate Dehydrogenase Total Creatine Kinase CK-MB (CK-2) C-Reactive Protein Total Protein Albumin Troponin T HDL Cholesterol Urine WBC (Auto) Urine Creatinine Urine Total Protein Coronavirus (PCR) Crossmatch See Detail 07/05/20 07/05/20 07/05/20 13:05 18:04 23:13 WBC RBC 2.57 L Hgb 7.7 L Hct 23.0 L MCHC RDW 16.9 H Lymph % (Auto) [place] % (Auto) Eos % (Auto) Lymph # [place] # Lymph # (Auto) [place] # (Auto) Seg Neutrophils % Seg Neuts % (Manual) Lymphocytes % (Manual) Seg Neutrophils # Seg Neutrophils # Man Lymphocytes # (Manual) Monocytes % (Manual) Eosinophils % (Manual) Monocytes # (Manual) Eosinophils # (Manual) D-Dimer Heparin Anti-Xa Level ABG pH 7.32 L POC ABG pCO2 POC ABG pO2 ABG pO2 78.3 L ABG HCO3 ABG O2 Saturation ABG Base Excess -2.6 L ABG Hemoglobin 7.3 L ABG Oxyhemoglobin VBG pH Oxyhemoglobin Sodium Potassium Chloride Carbon Dioxide BUN Creatinine Glucose POC Glucose 160 H Lactic Acid Calcium Ferritin AST Alkaline Phosphatase Magnesium Lactate Dehydrogenase Total Creatine Kinase CK-MB (CK-2) C-Reactive Protein Total Protein Albumin Troponin T HDL Cholesterol Urine WBC (Auto) Urine Creatinine Urine Total Protein Coronavirus (PCR) Crossmatch 07/05/20 07/05/20 07/06/20 23:13 23:43 13:20 WBC RBC Hgb Hct MCHC RDW Lymph % (Auto) [place] % (Auto) Eos % (Auto) Lymph # [place] # Lymph # (Auto) [place] # (Auto) Seg Neutrophils % Seg Neuts % (Manual) Lymphocytes % (Manual) Seg Neutrophils # Seg Neutrophils # Man Lymphocytes # (Manual) Monocytes % (Manual) Eosinophils % (Manual) Monocytes # (Manual) Eosinophils # (Manual) D-Dimer Heparin Anti-Xa Level ABG pH POC ABG pCO2 POC ABG pO2 ABG pO2 ABG HCO3 ABG O2 Saturation ABG Base Excess ABG Hemoglobin ABG Oxyhemoglobin VBG pH Oxyhemoglobin Sodium Potassium Chloride Carbon Dioxide 20 L BUN 80 H Creatinine 2.4 H D Glucose 124 H POC Glucose 121 H Lactic Acid Calcium 7.6 L Ferritin AST Alkaline Phosphatase Magnesium Lactate Dehydrogenase Total Creatine Kinase CK-MB (CK-2) C-Reactive Protein Total Protein Albumin Troponin T HDL Cholesterol Urine WBC (Auto) Urine Creatinine 33.3 H Urine Total Protein Coronavirus (PCR) Crossmatch 07/06/20 07/06/20 07/07/20 14:48 17:28 00:12 WBC RBC Hgb Hct MCHC RDW Lymph % (Auto) [place] % (Auto) Eos % (Auto) Lymph # [place] # Lymph # (Auto) [place] # (Auto) Seg Neutrophils % Seg Neuts % (Manual) Lymphocytes % (Manual) Seg Neutrophils # Seg Neutrophils # Man Lymphocytes # (Manual) Monocytes % (Manual) Eosinophils % (Manual) Monocytes # (Manual) Eosinophils # (Manual) D-Dimer Heparin Anti-Xa Level ABG pH POC ABG pCO2 POC ABG pO2 ABG pO2 ABG HCO3 ABG O2 Saturation ABG Base Excess ABG Hemoglobin ABG Oxyhemoglobin VBG pH Oxyhemoglobin Sodium 136 L Potassium 5.5 H Chloride Carbon Dioxide 19 L BUN 82 H Creatinine 2.5 H Glucose 113 H POC Glucose 133 H 154 H Lactic Acid Calcium 7.7 L Ferritin AST Alkaline Phosphatase Magnesium Lactate Dehydrogenase Total Creatine Kinase CK-MB (CK-2) C-Reactive Protein Total Protein Albumin Troponin T HDL Cholesterol Urine WBC (Auto) Urine Creatinine Urine Total Protein Coronavirus (PCR) Crossmatch 07/07/20 07/07/20 07/07/20 04:15 04:15 05:31 WBC RBC 2.28 L Hgb 6.8 L Hct 20.7 L MCHC RDW 16.8 H Lymph % (Auto) [place] % (Auto) Eos % (Auto) Lymph # [place] # Lymph # (Auto) [place] # (Auto) Seg Neutrophils % Seg Neuts % (Manual) Lymphocytes % (Manual) 13.0 L Seg Neutrophils # Seg Neutrophils # Man Lymphocytes # (Manual) 1.0 L Monocytes % (Manual) 11.0 H Eosinophils % (Manual) Monocytes # (Manual) 0.9 H Eosinophils # (Manual) D-Dimer Heparin Anti-Xa Level ABG pH POC ABG pCO2 POC ABG pO2 ABG pO2 ABG HCO3 ABG O2 Saturation ABG Base Excess ABG Hemoglobin ABG Oxyhemoglobin VBG pH Oxyhemoglobin Sodium Potassium Chloride Carbon Dioxide BUN Creatinine Glucose POC Glucose 135 H Lactic Acid Calcium Ferritin AST Alkaline Phosphatase Magnesium 2.50 H Lactate Dehydrogenase Total Creatine Kinase CK-MB (CK-2) C-Reactive Protein Total Protein Albumin Troponin T HDL Cholesterol Urine WBC (Auto) Urine Creatinine Urine Total Protein Coronavirus (PCR) Crossmatch 07/07/20 07/07/20 07/07/20 12:31 13:22 17:55 WBC RBC Hgb Hct MCHC RDW Lymph % (Auto) [place] % (Auto) Eos % (Auto) Lymph # [place] # Lymph # (Auto) [place] # (Auto) Seg Neutrophils % Seg Neuts % (Manual) Lymphocytes % (Manual) Seg Neutrophils # Seg Neutrophils # Man Lymphocytes # (Manual) Monocytes % (Manual) Eosinophils % (Manual) Monocytes # (Manual) Eosinophils # (Manual) D-Dimer Heparin Anti-Xa Level ABG pH POC ABG pCO2 POC ABG pO2 ABG pO2 ABG HCO3 ABG O2 Saturation ABG Base Excess ABG Hemoglobin ABG Oxyhemoglobin VBG pH Oxyhemoglobin Sodium Potassium 5.6 H Chloride Carbon Dioxide BUN 86 H Creatinine 2.9 H Glucose 127 H POC Glucose 131 H 136 H Lactic Acid Calcium 8.1 L Ferritin AST Alkaline Phosphatase Magnesium Lactate Dehydrogenase Total Creatine Kinase CK-MB (CK-2) C-Reactive Protein Total Protein Albumin Troponin T HDL Cholesterol Urine WBC (Auto) Urine Creatinine Urine Total Protein Coronavirus (PCR) Crossmatch 07/07/20 07/08/20 07/08/20 23:33 04:14 04:14 WBC RBC 3.28 L Hgb 9.7 L Hct 28.9 L D MCHC RDW 16.4 H Lymph % (Auto) 10.3 L [place] % (Auto) 10.0 H Eos % (Auto) Lymph # [place] # Lymph # (Auto) 1.1 L [place] # (Auto) 1.1 H Seg Neutrophils % 77.2 H Seg Neuts % (Manual) Lymphocytes % (Manual) Seg Neutrophils # 8.2 H Seg Neutrophils # Man Lymphocytes # (Manual) Monocytes % (Manual) Eosinophils % (Manual) Monocytes # (Manual) Eosinophils # (Manual) D-Dimer Heparin Anti-Xa Level ABG pH POC ABG pCO2 POC ABG pO2 ABG pO2 ABG HCO3 ABG O2 Saturation ABG Base Excess ABG Hemoglobin ABG Oxyhemoglobin VBG pH Oxyhemoglobin Sodium 136 L Potassium Chloride Carbon Dioxide BUN 84 H Creatinine 2.8 H Glucose 109 H POC Glucose 159 H Lactic Acid Calcium 8.1 L Ferritin AST Alkaline Phosphatase Magnesium 2.50 H Lactate Dehydrogenase Total Creatine Kinase CK-MB (CK-2) C-Reactive Protein Total Protein Albumin Troponin T HDL Cholesterol Urine WBC (Auto) Urine Creatinine Urine Total Protein Coronavirus (PCR) Crossmatch 07/08/20 07/08/20 07/08/20 12:10 18:10 23:50 WBC RBC Hgb Hct MCHC RDW Lymph % (Auto) [place] % (Auto) Eos % (Auto) Lymph # [place] # Lymph # (Auto) [place] # (Auto) Seg Neutrophils % Seg Neuts % (Manual) Lymphocytes % (Manual) Seg Neutrophils # Seg Neutrophils # Man Lymphocytes # (Manual) Monocytes % (Manual) Eosinophils % (Manual) Monocytes # (Manual) Eosinophils # (Manual) D-Dimer Heparin Anti-Xa Level ABG pH POC ABG pCO2 POC ABG pO2 ABG pO2 ABG HCO3 ABG O2 Saturation ABG Base Excess ABG Hemoglobin ABG Oxyhemoglobin VBG pH Oxyhemoglobin Sodium Potassium Chloride Carbon Dioxide BUN Creatinine Glucose POC Glucose 108 H 125 H 141 H Lactic Acid Calcium Ferritin AST Alkaline Phosphatase Magnesium Lactate Dehydrogenase Total Creatine Kinase CK-MB (CK-2) C-Reactive Protein Total Protein Albumin Troponin T HDL Cholesterol Urine WBC (Auto) Urine Creatinine Urine Total Protein Coronavirus (PCR) Crossmatch 07/09/20 07/09/20 07/09/20 05:39 11:57 17:56 WBC RBC Hgb Hct MCHC RDW Lymph % (Auto) [place] % (Auto) Eos % (Auto) Lymph # [place] # Lymph # (Auto) [place] # (Auto) Seg Neutrophils % Seg Neuts % (Manual) Lymphocytes % (Manual) Seg Neutrophils # Seg Neutrophils # Man Lymphocytes # (Manual) Monocytes % (Manual) Eosinophils % (Manual) Monocytes # (Manual) Eosinophils # (Manual) D-Dimer Heparin Anti-Xa Level ABG pH POC ABG pCO2 POC ABG pO2 ABG pO2 ABG HCO3 ABG O2 Saturation ABG Base Excess ABG Hemoglobin ABG Oxyhemoglobin VBG pH Oxyhemoglobin Sodium Potassium Chloride Carbon Dioxide BUN Creatinine Glucose POC Glucose 121 H 123 H 119 H Lactic Acid Calcium Ferritin AST Alkaline Phosphatase Magnesium Lactate Dehydrogenase Total Creatine Kinase CK-MB (CK-2) C-Reactive Protein Total Protein Albumin Troponin T HDL Cholesterol Urine WBC (Auto) Urine Creatinine Urine Total Protein Coronavirus (PCR) Crossmatch 07/10/20 07/10/20 07/10/20 00:29 05:50 10:41 WBC RBC 3.11 L Hgb 9.2 L Hct 27.6 L MCHC RDW 16.6 H Lymph % (Auto) [place] % (Auto) Eos % (Auto) Lymph # [place] # Lymph # (Auto) [place] # (Auto) Seg Neutrophils % Seg Neuts % (Manual) 78.0 H Lymphocytes % (Manual) 11.0 L Seg Neutrophils # Seg Neutrophils # Man Lymphocytes # (Manual) 1.0 L Monocytes % (Manual) Eosinophils % (Manual) Monocytes # (Manual) Eosinophils # (Manual) D-Dimer Heparin Anti-Xa Level ABG pH POC ABG pCO2 POC ABG pO2 ABG pO2 ABG HCO3 ABG O2 Saturation ABG Base Excess ABG Hemoglobin ABG Oxyhemoglobin VBG pH Oxyhemoglobin Sodium Potassium Chloride Carbon Dioxide BUN Creatinine Glucose POC Glucose 122 H 124 H Lactic Acid Calcium Ferritin AST Alkaline Phosphatase Magnesium Lactate Dehydrogenase Total Creatine Kinase CK-MB (CK-2) C-Reactive Protein Total Protein Albumin Troponin T HDL Cholesterol Urine WBC (Auto) Urine Creatinine Urine Total Protein Coronavirus (PCR) Crossmatch 07/10/20 07/10/20 07/10/20 10:41 12:25 18:10 WBC RBC Hgb Hct MCHC RDW Lymph % (Auto) [place] % (Auto) Eos % (Auto) Lymph # [place] # Lymph # (Auto) [place] # (Auto) Seg Neutrophils % Seg Neuts % (Manual) Lymphocytes % (Manual) Seg Neutrophils # Seg Neutrophils # Man Lymphocytes # (Manual) Monocytes % (Manual) Eosinophils % (Manual) Monocytes # (Manual) Eosinophils # (Manual) D-Dimer Heparin Anti-Xa Level ABG pH POC ABG pCO2 POC ABG pO2 ABG pO2 ABG HCO3 ABG O2 Saturation ABG Base Excess ABG Hemoglobin ABG Oxyhemoglobin VBG pH Oxyhemoglobin Sodium Potassium Chloride Carbon Dioxide BUN 85 H Creatinine 2.5 H Glucose 133 H POC Glucose 131 H 134 H Lactic Acid Calcium Ferritin AST Alkaline Phosphatase 131 H Magnesium Lactate Dehydrogenase Total Creatine Kinase CK-MB (CK-2) C-Reactive Protein Total Protein 5.2 L Albumin 1.6 L Troponin T HDL Cholesterol Urine WBC (Auto) Urine Creatinine Urine Total Protein Coronavirus (PCR) Crossmatch 07/11/20 07/11/20 07/11/20 00:28 05:57 12:14 WBC RBC Hgb Hct MCHC RDW Lymph % (Auto) [place] % (Auto) Eos % (Auto) Lymph # [place] # Lymph # (Auto) [place] # (Auto) Seg Neutrophils % Seg Neuts % (Manual) Lymphocytes % (Manual) Seg Neutrophils # Seg Neutrophils # Man Lymphocytes # (Manual) Monocytes % (Manual) Eosinophils % (Manual) Monocytes # (Manual) Eosinophils # (Manual) D-Dimer Heparin Anti-Xa Level ABG pH POC ABG pCO2 POC ABG pO2 ABG pO2 ABG HCO3 ABG O2 Saturation ABG Base Excess ABG Hemoglobin ABG Oxyhemoglobin VBG pH Oxyhemoglobin Sodium Potassium Chloride Carbon Dioxide BUN Creatinine Glucose POC Glucose 140 H 148 H 147 H Lactic Acid Calcium Ferritin AST Alkaline Phosphatase Magnesium Lactate Dehydrogenase Total Creatine Kinase CK-MB (CK-2) C-Reactive Protein Total Protein Albumin Troponin T HDL Cholesterol Urine WBC (Auto) Urine Creatinine Urine Total Protein Coronavirus (PCR) Crossmatch 07/11/20 07/11/20 07/12/20 17:28 23:49 05:14 WBC RBC 2.78 L Hgb 8.5 L Hct 25.3 L MCHC RDW 16.7 H Lymph % (Auto) [place] % (Auto) Eos % (Auto) Lymph # [place] # Lymph # (Auto) [place] # (Auto) Seg Neutrophils % Seg Neuts % (Manual) 81.0 H Lymphocytes % (Manual) 6.0 L Seg Neutrophils # Seg Neutrophils # Man Lymphocytes # (Manual) 0.6 L Monocytes % (Manual) 8.0 H Eosinophils % (Manual) Monocytes # (Manual) Eosinophils # (Manual) D-Dimer Heparin Anti-Xa Level ABG pH POC ABG pCO2 POC ABG pO2 ABG pO2 ABG HCO3 ABG O2 Saturation ABG Base Excess ABG Hemoglobin ABG Oxyhemoglobin VBG pH Oxyhemoglobin Sodium Potassium Chloride Carbon Dioxide BUN Creatinine Glucose POC Glucose 175 H 114 H Lactic Acid Calcium Ferritin AST Alkaline Phosphatase Magnesium Lactate Dehydrogenase Total Creatine Kinase CK-MB (CK-2) C-Reactive Protein Total Protein Albumin Troponin T HDL Cholesterol Urine WBC (Auto) Urine Creatinine Urine Total Protein Coronavirus (PCR) Crossmatch 07/12/20 07/12/20 07/12/20 05:14 05:44 11:32 WBC RBC Hgb Hct MCHC RDW Lymph % (Auto) [place] % (Auto) Eos % (Auto) Lymph # [place] # Lymph # (Auto) [place] # (Auto) Seg Neutrophils % Seg Neuts % (Manual) Lymphocytes % (Manual) Seg Neutrophils # Seg Neutrophils # Man Lymphocytes # (Manual) Monocytes % (Manual) Eosinophils % (Manual) Monocytes # (Manual) Eosinophils # (Manual) D-Dimer Heparin Anti-Xa Level ABG pH POC ABG pCO2 POC ABG pO2 ABG pO2 ABG HCO3 ABG O2 Saturation ABG Base Excess ABG Hemoglobin ABG Oxyhemoglobin VBG pH Oxyhemoglobin Sodium Potassium Chloride Carbon Dioxide BUN 79 H Creatinine 2.2 H Glucose 131 H POC Glucose 116 H 132 H Lactic Acid Calcium Ferritin AST Alkaline Phosphatase Magnesium Lactate Dehydrogenase Total Creatine Kinase CK-MB (CK-2) C-Reactive Protein Total Protein Albumin Troponin T HDL Cholesterol Urine WBC (Auto) Urine Creatinine Urine Total Protein Coronavirus (PCR) Crossmatch 07/12/20 07/13/20 07/13/20 17:53 00:18 04:53 WBC RBC 2.86 L Hgb 8.4 L Hct 25.7 L MCHC RDW 16.8 H Lymph % (Auto) [place] % (Auto) Eos % (Auto) Lymph # [place] # Lymph # (Auto) [place] # (Auto) Seg Neutrophils % Seg Neuts % (Manual) 84.0 H Lymphocytes % (Manual) 7.0 L Seg Neutrophils # Seg Neutrophils # Man Lymphocytes # (Manual) 0.6 L Monocytes % (Manual) Eosinophils % (Manual) Monocytes # (Manual) Eosinophils # (Manual) D-Dimer Heparin Anti-Xa Level ABG pH POC ABG pCO2 POC ABG pO2 ABG pO2 ABG HCO3 ABG O2 Saturation ABG Base Excess ABG Hemoglobin ABG Oxyhemoglobin VBG pH Oxyhemoglobin Sodium Potassium Chloride Carbon Dioxide BUN Creatinine Glucose POC Glucose 155 H 162 H Lactic Acid Calcium Ferritin AST Alkaline Phosphatase Magnesium Lactate Dehydrogenase Total Creatine Kinase CK-MB (CK-2) C-Reactive Protein Total Protein Albumin Troponin T HDL Cholesterol Urine WBC (Auto) Urine Creatinine Urine Total Protein Coronavirus (PCR) Crossmatch 07/13/20 07/13/20 07/13/20 04:53 06:14 12:50 WBC RBC Hgb Hct MCHC RDW Lymph % (Auto) [place] % (Auto) Eos % (Auto) Lymph # [place] # Lymph # (Auto) [place] # (Auto) Seg Neutrophils % Seg Neuts % (Manual) Lymphocytes % (Manual) Seg Neutrophils # Seg Neutrophils # Man Lymphocytes # (Manual) Monocytes % (Manual) Eosinophils % (Manual) Monocytes # (Manual) Eosinophils # (Manual) D-Dimer Heparin Anti-Xa Level ABG pH POC ABG pCO2 POC ABG pO2 ABG pO2 ABG HCO3 ABG O2 Saturation ABG Base Excess ABG Hemoglobin ABG Oxyhemoglobin VBG pH Oxyhemoglobin Sodium 136 L Potassium Chloride Carbon Dioxide BUN 78 H Creatinine 2.0 H Glucose 130 H POC Glucose 141 H 146 H Lactic Acid Calcium Ferritin AST Alkaline Phosphatase Magnesium Lactate Dehydrogenase Total Creatine Kinase CK-MB (CK-2) C-Reactive Protein Total Protein Albumin Troponin T HDL Cholesterol Urine WBC (Auto) Urine Creatinine Urine Total Protein Coronavirus (PCR) Crossmatch 07/13/20 07/14/20 07/14/20 18:27 00:22 05:43 WBC RBC Hgb Hct MCHC RDW Lymph % (Auto) [place] % (Auto) Eos % (Auto) Lymph # [place] # Lymph # (Auto) [place] # (Auto) Seg Neutrophils % Seg Neuts % (Manual) Lymphocytes % (Manual) Seg Neutrophils # Seg Neutrophils # Man Lymphocytes # (Manual) Monocytes % (Manual) Eosinophils % (Manual) Monocytes # (Manual) Eosinophils # (Manual) D-Dimer Heparin Anti-Xa Level ABG pH POC ABG pCO2 POC ABG pO2 ABG pO2 ABG HCO3 ABG O2 Saturation ABG Base Excess ABG Hemoglobin ABG Oxyhemoglobin VBG pH Oxyhemoglobin Sodium Potassium Chloride Carbon Dioxide BUN Creatinine Glucose POC Glucose 149 H 157 H 169 H Lactic Acid Calcium Ferritin AST Alkaline Phosphatase Magnesium Lactate Dehydrogenase Total Creatine Kinase CK-MB (CK-2) C-Reactive Protein Total Protein Albumin Troponin T HDL Cholesterol Urine WBC (Auto) Urine Creatinine Urine Total Protein Coronavirus (PCR) Crossmatch 07/14/20 07/14/20 07/14/20 08:04 12:12 17:23 WBC RBC Hgb Hct MCHC RDW Lymph % (Auto) [place] % (Auto) Eos % (Auto) Lymph # [place] # Lymph # (Auto) [place] # (Auto) Seg Neutrophils % Seg Neuts % (Manual) Lymphocytes % (Manual) Seg Neutrophils # Seg Neutrophils # Man Lymphocytes # (Manual) Monocytes % (Manual) Eosinophils % (Manual) Monocytes # (Manual) Eosinophils # (Manual) D-Dimer Heparin Anti-Xa Level ABG pH POC ABG pCO2 POC ABG pO2 ABG pO2 ABG HCO3 ABG O2 Saturation ABG Base Excess ABG Hemoglobin ABG Oxyhemoglobin VBG pH Oxyhemoglobin Sodium Potassium Chloride Carbon Dioxide BUN Creatinine Glucose POC Glucose 185 H 138 H Lactic Acid Calcium Ferritin AST Alkaline Phosphatase Magnesium Lactate Dehydrogenase Total Creatine Kinase CK-MB (CK-2) C-Reactive Protein Total Protein Albumin Troponin T HDL Cholesterol Urine WBC (Auto) Urine Creatinine Urine Total Protein Coronavirus (PCR) Positive A Crossmatch 07/15/20 07/15/20 00:04 06:06 WBC RBC Hgb Hct MCHC RDW Lymph % (Auto) [place] % (Auto) Eos % (Auto) Lymph # [place] # Lymph # (Auto) [place] # (Auto) Seg Neutrophils % Seg Neuts % (Manual) Lymphocytes % (Manual) Seg Neutrophils # Seg Neutrophils # Man Lymphocytes # (Manual) Monocytes % (Manual) Eosinophils % (Manual) Monocytes # (Manual) Eosinophils # (Manual) D-Dimer Heparin Anti-Xa Level ABG pH POC ABG pCO2 POC ABG pO2 ABG pO2 ABG HCO3 ABG O2 Saturation ABG Base Excess ABG Hemoglobin ABG Oxyhemoglobin VBG pH Oxyhemoglobin Sodium Potassium Chloride Carbon Dioxide BUN Creatinine Glucose POC Glucose 121 H 140 H Lactic Acid Calcium Ferritin AST Alkaline Phosphatase Magnesium Lactate Dehydrogenase Total Creatine Kinase CK-MB (CK-2) C-Reactive Protein Total Protein Albumin Troponin T HDL Cholesterol Urine WBC (Auto) Urine Creatinine Urine Total Protein Coronavirus (PCR) Crossmatch Chest x-ray: image reviewed Allied health notes reviewed: RT
[2020-07-15] MEDS: amLODIPine 10 MG TAB PO SCH (11:34)
[2020-07-15] MEDS: LANSOPRAZOLE 30 MG SOLUTAB FEEDTUBE SCH ×2 (11:35→21:53)
[2020-07-15] MEDS: cloNIDine 0.2 MG TAB PO SCH ×2 (11:36→21:53)
--- NOTE | 2020-07-15 12:39 | Progress Note ---
Assessment and Plan Cultures: Coronavirus PCR 05/28/2020: Positive 05/28/2020 blood culture: no growth 05/28/2020 tracheal aspirate: Usual respiratory bobo 05/28/2020 urine culture: No growth 06/03/2020 urine culture: No growth 06/09/2020 tracheal aspirate Klebsiella pneumoniae 06/28/2020 sputum culture positive for Klebsiella 06/28/2020 blood cultures no growth today 06/29/2020 SARS COV2 PCR positive A/P: 64-year-old female with hypertension, diastolic CHF, pulmonary hypertension, diabetes, obesity hypoventilation syndrome, recent COVID pneumonia, was admitted to the emergency room after she called EMS due to difficulty breathing. On the way to the hospital, patient developed cardiac arrest and was treated as per ACLS protocol: #Cardiac arrest on 07/01/2020. #Sepsis on 06/27/2020: Resolved. After asystolic cardiac arrest on 06/26/2028. #Bilateral pneumonia: Secondary to COVID-19. Completed 5 days of IV Remdesivir 06/02/2020, completed steroids. ?Healthcare associated pneumonia, repeat sputum Klebsiella. Chest x-ray worsening infiltrates. Completed abx. #Acute hypoxic respiratory failure: On mechanical ventilation. Minimal vent settings. #HF: EF 45-50% #Mild LFT elevation: likely from COVID-19. #Severe constipation: Status post manual disimpaction. #Encephalopathy: ? Post cardiac arrest. Recs: - continue supportive care, awaits trach/PEG - continue off antibiotics - persistent COVID-19 PCR positivity is very likely from non-viable viral RNA, patient's original COVID test positivity was 05/28/2020. She is unlikely to be infectious at this time Mallory Wright MD, FACP [facility] ([facility] C: [phone] O: [phone] F: [phone] Subjective Date of service: 07/15/20 Principal diagnosis: Ac hypoxemic resp failure; COVID-19; pneumonia; CHF; Pulm HTN; OHS; DM II Interval history: Remains intubated, on the vent, minimal settings. No fever. Objective - Exam Narrative Exam: Physical Exam (reviewed in chart due to PPE conservation) Constitutional: intubated, sedated, on the vent Head, Ears, Nose: normocephalic, atraumatic Eyes: limited due to PPE conservation strategy Neck: intubated Oral: intubated Cardiovascular: limited due to PPE conservation strategy Respiratory: limited due to PPE conservation strategy GI: limited due to PPE conservation strategy Musculoskeletal: limited due to PPE conservation strategy Skin: limited due to PPE conservation strategy Hem/Lymphatic: limited due to PPE conservation strategy Psych: no agitation Neurological: sedated, intubated, on the vent, exam limited - Constitutional Vitals: Vital Signs Temp Pulse Resp BP Pulse Ox 98.5 F 76 18 160/69 97 07/15/20 08:00 07/15/20 12:22 07/15/20 12:22 07/15/20 12:22 07/15/20 12:22 Temperature -Last 24 Hours Temperature 98.5 F Temperature 98.9 F Temperature 98.8 F Temperature 97.6 F Temperature 98.3 F - Labs CBC & Chem 7: 07/13/20 04:53 07/13/20 04:53 Labs: Abnormal lab results 07/14/20 07/14/20 07/14/20 Range/Units 08:04 12:12 17:23 POC Glucose 185 H 138 H (70-105) Coronavirus (PCR) Positive A (Negative) 07/15/20 07/15/20 07/15/20 Range/Units 00:04 06:06 12:00 POC Glucose 121 H 140 H 137 H (70-105) Coronavirus (PCR) (Negative)
--- NOTE | 2020-07-15 12:45 | Consultation ---
History of Present Illness Consult date: 07/15/20 Requesting physician: TENZIN FOSTER Reason for Consult: Prognostication s/p 2 cardiac arrests Chief complaint: Encephalopathy History of present illness: 64 yo female with htn, dm, chf, pulm htn, presented to the ED in May w/ shortness of breath that led to cardiac arrest en route to the hospital on 05/28/2020. Hospital course is noteful for acute respiratory failure, covid infection, multifocal pneumonia, morbid obesity, acute toxic/metabolic encephalopathy, acute renal failure, bilateral pulmonary edema/effusions, and noted continued encephalopathy. The patient suffered a second cardiopulmonary arrest on 06/26/2020. She underwent two NCHCT on 05/28/2020 and 06/02/2020 which were both unremarkable for an acute process. Currently, the patient just tested positive for COVID again on 07/14/2020 and is in continued isolation. Past History Past Medical History: diabetes, heart failure, hypertension, other (See HPI) Past Surgical History: No surgical history, Other (Reviewed) Social history: . denies: smoking, alcohol abuse, prescription drug abuse Family history: diabetes, hypertension Medications and Allergies Allergies Allergy/AdvReac Type Severity Reaction Status Date / Time No Known Allergies Allergy Verified 01/21/20 12:28 Home Medications Medication Instructions Recorded Confirmed Last Taken Type AtorvaSTATin [Lipitor] 20 mg PO QHS 05/12/20 05/29/20 Unknown History lisinopriL [Zestril TAB] 40 mg PO QDAY 05/12/20 05/29/20 Unknown History metFORMIN [Glucophage] 850 mg PO BID 05/12/20 05/29/20 Unknown History Acetaminophen [Acetaminophen TAB] 650 mg PO Q4H PRN tablet 05/13/20 05/29/20 Unknown Rx Dicyclomine [Bentyl] 20 mg PO BID #20 tablet 05/13/20 05/29/20 Unknown Rx Famotidine [Pepcid] 20 mg PO BID #30 tablet 05/13/20 05/29/20 Unknown Rx carvediloL [Coreg] 6.25 mg PO BID #60 05/13/20 05/29/20 Unknown Rx Active Meds: Active Medications Acetaminophen (Tylenol) 650 mg FEEDTUBE Q6H PRN PRN Reason: Fever >101 Last Admin: 06/29/20 21:18 Dose: 650 mg Documented by: Amlodipine Besylate (Amlodipine) 10 mg PO DAILY [facility] Last Admin: 07/15/20 11:34 Dose: 10 mg Documented by: Lipase/Protease/Amylase (Papo Lawson 10,500 Unit) 1 each FEEDTUBE PRN PRN PRN Reason: For Clogged Feeding Tube Last Admin: 07/07/20 10:36 Dose: 1 each Documented by: Carvedilol (Coreg) 12.5 mg PO BID [facility] Last Admin: 07/15/20 11:15 Dose: 12.5 mg Documented by: Clonidine HCl (Catapres) 0.2 mg PO Q12HR [facility] Last Admin: 07/15/20 11:36 Dose: 0.2 mg Documented by: Glycopyrrolate (Glycopyrrolate) 2 mg PO TID [facility] Last Admin: 07/15/20 07:47 Dose: 2 mg Documented by: Heparin Sodium (Porcine) (Heparin) 5,000 unit SUB-Q Q8HR [facility] Last Admin: 07/15/20 06:34 Dose: 5,000 unit Documented by: Hydralazine HCl (Apresoline) 100 mg PO TID [facility] Last Admin: 07/15/20 07:47 Dose: 100 mg Documented by: Hydrophilic Ointment (Vaseline Lip Therapy) 1 applic TP Q2HR PRN PRN Reason: Dry Lips Insulin Glargine (Lantus) 10 units SUB-Q QHS [facility] Last Admin: 07/14/20 22:45 Dose: 10 units Documented by: Insulin Human Lispro (Humalog) 0 unit SUB-Q Q6H [facility]; Protocol Last Admin: 07/15/20 06:09 Dose: Not Given Documented by: Labetalol HCl (Labetalol) 20 mg IV Q4H PRN PRN Reason: HYPERTENSION Last Admin: 07/14/20 08:44 Dose: 20 mg Documented by: Lansoprazole (Prevacid Solutab) 30 mg FEEDTUBE BID [facility] Last Admin: 07/15/20 11:35 Dose: 30 mg Documented by: Levetiracetam (Keppra) 500 mg PO BID [facility] Last Admin: 07/15/20 11:15 Dose: 500 mg Documented by: Modafinil (Provigil) 100 mg PO DAILY [facility] Last Admin: 07/14/20 09:08 Dose: 100 mg Documented by: Multi-Ingred Cream/Lotion/Oil/Oint (Artificial Tears Ophth Oint) 1 applic OU Q4HR PRN PRN Reason: Dry Eye(s) Ondansetron HCl (Zofran) 4 mg IV Q8H PRN PRN Reason: Nausea And Vomiting Last Admin: 06/09/20 16:48 Dose: 4 mg Documented by: Senna (Senokot) 17.6 mg FEEDTUBE BID [facility] Last Admin: 07/15/20 11:37 Dose: Not Given Documented by: Simple Syrup (Simple Syrup) 15 ml FEEDTUBE PRN PRN PRN Reason: Hypoglycemia Simple Syrup (Simple Syrup) 30 ml FEEDTUBE PRN PRN PRN Reason: Hypoglycemia Sodium Bicarbonate (Sodium Bicarbonate) 325 mg FEEDTUBE PRN PRN PRN Reason: For Clogged Feeding Tube Last Admin: 07/07/20 10:36 Dose: 325 mg Documented by: Sodium Chloride (Sodium Chloride Flush Syringe 10 Ml) 10 ml IV BID [facility] Last Admin: 07/15/20 11:37 Dose: 10 ml Documented by: Sodium Chloride (Sodium Chloride Flush Syringe 10 Ml) 10 ml IV PRN PRN PRN Reason: LINE FLUSH Last Admin: 06/16/20 17:50 Dose: 10 ml Documented by: Review of Systems ROS unobtainable: due to mental status Physical Examination - Vital Signs Vital Signs: Vital Signs BP 239/126 05/28/20 13:15 - Additional Exam Additional Exam: To Avoid Unnecessary Exposure to the Teleneurology staff member to COVID-19, an exam is avoided at present. Pulmonology exam reviewed. Results - Laboratory Findings CBC and BMP: 07/13/20 04:53 07/13/20 04:53 Abnormal Lab Findings: Abnormal Labs 05/28/20 05/28/20 05/28/20 13:29 13:47 13:47 WBC RBC Hgb Hct MCHC RDW 15.3 H Lymph % (Auto) [place] % (Auto) Eos % (Auto) Lymph # [place] # Lymph # (Auto) [place] # (Auto) Seg Neutrophils % Seg Neuts % (Manual) Lymphocytes % (Manual) Seg Neutrophils # Seg Neutrophils # Man Lymphocytes # (Manual) Monocytes % (Manual) Eosinophils % (Manual) Monocytes # (Manual) Eosinophils # (Manual) D-Dimer Heparin Anti-Xa Level ABG pH POC ABG pCO2 POC ABG pO2 ABG pO2 ABG HCO3 ABG O2 Saturation ABG Base Excess ABG Hemoglobin ABG Oxyhemoglobin VBG pH Oxyhemoglobin Sodium Potassium 6.6 H* Chloride 109.2 H Carbon Dioxide 17 L BUN 29 H Creatinine 1.3 H Glucose 265 H POC Glucose 248 H Lactic Acid Calcium 8.1 L Ferritin AST 63 H Alkaline Phosphatase Magnesium Lactate Dehydrogenase Total Creatine Kinase 301 H CK-MB (CK-2) 4.3 H C-Reactive Protein Total Protein 5.4 L Albumin 2.6 L Troponin T HDL Cholesterol Urine WBC (Auto) Urine Creatinine Urine Total Protein Coronavirus (PCR) Crossmatch 05/28/20 05/28/20 05/28/20 13:47 13:47 14:46 WBC RBC Hgb Hct MCHC RDW Lymph % (Auto) [place] % (Auto) Eos % (Auto) Lymph # [place] # Lymph # (Auto) [place] # (Auto) Seg Neutrophils % Seg Neuts % (Manual) Lymphocytes % (Manual) Seg Neutrophils # Seg Neutrophils # Man Lymphocytes # (Manual) Monocytes % (Manual) Eosinophils % (Manual) Monocytes # (Manual) Eosinophils # (Manual) D-Dimer Heparin Anti-Xa Level ABG pH POC ABG pCO2 POC ABG pO2 ABG pO2 ABG HCO3 ABG O2 Saturation ABG Base Excess ABG Hemoglobin ABG Oxyhemoglobin VBG pH 7.152 L* Oxyhemoglobin Sodium Potassium 7.2 H* Chloride Carbon Dioxide BUN Creatinine Glucose POC Glucose Lactic Acid 3.40 H* Calcium Ferritin AST Alkaline Phosphatase Magnesium Lactate Dehydrogenase Total Creatine Kinase CK-MB (CK-2) C-Reactive Protein Total Protein Albumin Troponin T HDL Cholesterol Urine WBC (Auto) Urine Creatinine Urine Total Protein Coronavirus (PCR) Crossmatch 05/28/20 05/28/20 05/28/20 15:33 15:33 15:51 WBC RBC Hgb Hct MCHC RDW Lymph % (Auto) [place] % (Auto) Eos % (Auto) Lymph # [place] # Lymph # (Auto) [place] # (Auto) Seg Neutrophils % Seg Neuts % (Manual) Lymphocytes % (Manual) Seg Neutrophils # Seg Neutrophils # Man Lymphocytes # (Manual) Monocytes % (Manual) Eosinophils % (Manual) Monocytes # (Manual) Eosinophils # (Manual) D-Dimer 8780.43 H Heparin Anti-Xa Level ABG pH 7.284 L POC ABG pCO2 POC ABG pO2 ABG pO2 273.0 H ABG HCO3 ABG O2 Saturation 99.4 H ABG Base Excess -6.1 L ABG Hemoglobin 17.2 H ABG Oxyhemoglobin VBG pH Oxyhemoglobin Sodium Potassium Chloride Carbon Dioxide BUN Creatinine Glucose 152 H POC Glucose Lactic Acid Calcium Ferritin AST Alkaline Phosphatase Magnesium Lactate Dehydrogenase 365 H Total Creatine Kinase CK-MB (CK-2) C-Reactive Protein Total Protein Albumin Troponin T HDL Cholesterol Urine WBC (Auto) Urine Creatinine Urine Total Protein Coronavirus (PCR) Crossmatch 05/28/20 05/28/20 05/28/20 16:30 20:41 23:20 WBC RBC Hgb Hct MCHC RDW Lymph % (Auto) [place] % (Auto) Eos % (Auto) Lymph # [place] # Lymph # (Auto) [place] # (Auto) Seg Neutrophils % Seg Neuts % (Manual) Lymphocytes % (Manual) Seg Neutrophils # Seg Neutrophils # Man Lymphocytes # (Manual) Monocytes % (Manual) Eosinophils % (Manual) Monocytes # (Manual) Eosinophils # (Manual) D-Dimer Heparin Anti-Xa Level ABG pH POC ABG pCO2 POC ABG pO2 ABG pO2 ABG HCO3 ABG O2 Saturation ABG Base Excess ABG Hemoglobin ABG Oxyhemoglobin VBG pH Oxyhemoglobin Sodium Potassium Chloride Carbon Dioxide BUN Creatinine Glucose POC Glucose 225 H 224 H Lactic Acid Calcium Ferritin AST Alkaline Phosphatase Magnesium Lactate Dehydrogenase Total Creatine Kinase CK-MB (CK-2) C-Reactive Protein Total Protein Albumin Troponin T HDL Cholesterol Urine WBC (Auto) 17.0 H Urine Creatinine Urine Total Protein Coronavirus (PCR) Crossmatch 05/28/20 05/29/20 05/29/20 Unknown 04:35 04:43 WBC RBC 3.48 L Hgb 9.8 L Hct 29.4 L MCHC RDW 16.0 H Lymph % (Auto) 7.4 L [place] % (Auto) Eos % (Auto) Lymph # 0.7 L [place] # Lymph # (Auto) [place] # (Auto) Seg Neutrophils % 89.1 H Seg Neuts % (Manual) Lymphocytes % (Manual) Seg Neutrophils # 8.1 H Seg Neutrophils # Man Lymphocytes # (Manual) Monocytes % (Manual) Eosinophils % (Manual) Monocytes # (Manual) Eosinophils # (Manual) D-Dimer Heparin Anti-Xa Level ABG pH POC ABG pCO2 POC ABG pO2 ABG pO2 ABG HCO3 19.3 L ABG O2 Saturation ABG Base Excess -4.5 L ABG Hemoglobin 9.7 L ABG Oxyhemoglobin VBG pH Oxyhemoglobin Sodium Potassium Chloride Carbon Dioxide BUN Creatinine Glucose POC Glucose Lactic Acid Calcium Ferritin AST Alkaline Phosphatase Magnesium Lactate Dehydrogenase Total Creatine Kinase CK-MB (CK-2) C-Reactive Protein Total Protein Albumin Troponin T HDL Cholesterol Urine WBC (Auto) Urine Creatinine Urine Total Protein Coronavirus (PCR) Positive A Crossmatch 05/29/20 05/29/20 05/29/20 04:43 15:10 17:17 WBC RBC Hgb 9.3 L Hct 28.7 L MCHC RDW Lymph % (Auto) [place] % (Auto) Eos % (Auto) Lymph # [place] # Lymph # (Auto) [place] # (Auto) Seg Neutrophils % Seg Neuts % (Manual) Lymphocytes % (Manual) Seg Neutrophils # Seg Neutrophils # Man Lymphocytes # (Manual) Monocytes % (Manual) Eosinophils % (Manual) Monocytes # (Manual) Eosinophils # (Manual) D-Dimer Heparin Anti-Xa Level ABG pH POC ABG pCO2 POC ABG pO2 ABG pO2 ABG HCO3 ABG O2 Saturation ABG Base Excess ABG Hemoglobin ABG Oxyhemoglobin VBG pH Oxyhemoglobin Sodium Potassium Chloride 110.2 H Carbon Dioxide 18 L BUN 32 H Creatinine 1.4 H Glucose 180 H POC Glucose 147 H Lactic Acid Calcium Ferritin AST Alkaline Phosphatase Magnesium Lactate Dehydrogenase Total Creatine Kinase CK-MB (CK-2) C-Reactive Protein Total Protein Albumin Troponin T HDL Cholesterol Urine WBC (Auto) Urine Creatinine Urine Total Protein Coronavirus (PCR) Crossmatch 05/30/20 05/30/20 05/30/20 00:08 00:12 04:15 WBC RBC Hgb Hct MCHC RDW Lymph % (Auto) [place] % (Auto) Eos % (Auto) Lymph # [place] # Lymph # (Auto) [place] # (Auto) Seg Neutrophils % Seg Neuts % (Manual) Lymphocytes % (Manual) Seg Neutrophils # Seg Neutrophils # Man Lymphocytes # (Manual) Monocytes % (Manual) Eosinophils % (Manual) Monocytes # (Manual) Eosinophils # (Manual) D-Dimer Heparin Anti-Xa Level 0.71 H ABG pH 7.460 H POC ABG pCO2 POC ABG pO2 ABG pO2 106.0 H ABG HCO3 18.9 L ABG O2 Saturation ABG Base Excess -4.4 L ABG Hemoglobin 6.8 L ABG Oxyhemoglobin VBG pH Oxyhemoglobin Sodium Potassium Chloride Carbon Dioxide BUN Creatinine Glucose POC Glucose 195 H Lactic Acid Calcium Ferritin AST Alkaline Phosphatase Magnesium Lactate Dehydrogenase Total Creatine Kinase CK-MB (CK-2) C-Reactive Protein Total Protein Albumin Troponin T HDL Cholesterol Urine WBC (Auto) Urine Creatinine Urine Total Protein Coronavirus (PCR) Crossmatch 05/30/20 05/30/20 05/30/20 06:07 08:37 12:33 WBC RBC Hgb Hct MCHC RDW Lymph % (Auto) [place] % (Auto) Eos % (Auto) Lymph # [place] # Lymph # (Auto) [place] # (Auto) Seg Neutrophils % Seg Neuts % (Manual) Lymphocytes % (Manual) Seg Neutrophils # Seg Neutrophils # Man Lymphocytes # (Manual) Monocytes % (Manual) Eosinophils % (Manual) Monocytes # (Manual) Eosinophils # (Manual) D-Dimer Heparin Anti-Xa Level 0.85 H ABG pH POC ABG pCO2 POC ABG pO2 ABG pO2 ABG HCO3 ABG O2 Saturation ABG Base Excess ABG Hemoglobin ABG Oxyhemoglobin VBG pH Oxyhemoglobin Sodium Potassium Chloride Carbon Dioxide BUN Creatinine Glucose POC Glucose 182 H 187 H Lactic Acid Calcium Ferritin AST Alkaline Phosphatase Magnesium Lactate Dehydrogenase Total Creatine Kinase CK-MB (CK-2) C-Reactive Protein Total Protein Albumin Troponin T HDL Cholesterol Urine WBC (Auto) Urine Creatinine Urine Total Protein Coronavirus (PCR) Crossmatch 05/30/20 05/30/20 05/30/20 15:58 17:57 23:36 WBC RBC Hgb Hct MCHC RDW Lymph % (Auto) [place] % (Auto) Eos % (Auto) Lymph # [place] # Lymph # (Auto) [place] # (Auto) Seg Neutrophils % Seg Neuts % (Manual) Lymphocytes % (Manual) Seg Neutrophils # Seg Neutrophils # Man Lymphocytes # (Manual) Monocytes % (Manual) Eosinophils % (Manual) Monocytes # (Manual) Eosinophils # (Manual) D-Dimer Heparin Anti-Xa Level 1.03 H ABG pH POC ABG pCO2 POC ABG pO2 ABG pO2 ABG HCO3 ABG O2 Saturation ABG Base Excess ABG Hemoglobin ABG Oxyhemoglobin VBG pH Oxyhemoglobin Sodium Potassium Chloride Carbon Dioxide BUN Creatinine Glucose POC Glucose 208 H 185 H Lactic Acid Calcium Ferritin AST Alkaline Phosphatase Magnesium Lactate Dehydrogenase Total Creatine Kinase CK-MB (CK-2) C-Reactive Protein Total Protein Albumin Troponin T HDL Cholesterol Urine WBC (Auto) Urine Creatinine Urine Total Protein Coronavirus (PCR) Crossmatch 05/31/20 05/31/20 05/31/20 02:16 03:55 06:16 WBC RBC Hgb 9.2 L Hct 27.5 L MCHC RDW Lymph % (Auto) [place] % (Auto) Eos % (Auto) Lymph # [place] # Lymph # (Auto) [place] # (Auto) Seg Neutrophils % Seg Neuts % (Manual) Lymphocytes % (Manual) Seg Neutrophils # Seg Neutrophils # Man Lymphocytes # (Manual) Monocytes % (Manual) Eosinophils % (Manual) Monocytes # (Manual) Eosinophils # (Manual) D-Dimer Heparin Anti-Xa Level ABG pH POC ABG pCO2 POC ABG pO2 ABG pO2 94.7 H ABG HCO3 18.6 L ABG O2 Saturation ABG Base Excess -5.5 L ABG Hemoglobin 7.9 L ABG Oxyhemoglobin VBG pH Oxyhemoglobin Sodium Potassium Chloride Carbon Dioxide BUN Creatinine Glucose POC Glucose 160 H Lactic Acid Calcium Ferritin AST Alkaline Phosphatase Magnesium Lactate Dehydrogenase Total Creatine Kinase CK-MB (CK-2) C-Reactive Protein Total Protein Albumin Troponin T HDL Cholesterol Urine WBC (Auto) Urine Creatinine Urine Total Protein Coronavirus (PCR) Crossmatch 05/31/20 05/31/20 05/31/20 12:20 13:03 18:13 WBC RBC Hgb Hct MCHC RDW Lymph % (Auto) [place] % (Auto) Eos % (Auto) Lymph # [place] # Lymph # (Auto) [place] # (Auto) Seg Neutrophils % Seg Neuts % (Manual) Lymphocytes % (Manual) Seg Neutrophils # Seg Neutrophils # Man Lymphocytes # (Manual) Monocytes % (Manual) Eosinophils % (Manual) Monocytes # (Manual) Eosinophils # (Manual) D-Dimer Heparin Anti-Xa Level ABG pH POC ABG pCO2 POC ABG pO2 ABG pO2 ABG HCO3 ABG O2 Saturation ABG Base Excess ABG Hemoglobin ABG Oxyhemoglobin VBG pH Oxyhemoglobin Sodium Potassium Chloride Carbon Dioxide 18 L BUN 48 H Creatinine 1.6 H Glucose 115 H POC Glucose 128 H 159 H Lactic Acid Calcium 8.3 L Ferritin AST Alkaline Phosphatase Magnesium Lactate Dehydrogenase Total Creatine Kinase CK-MB (CK-2) C-Reactive Protein Total Protein 5.4 L Albumin 2.4 L Troponin T HDL Cholesterol Urine WBC (Auto) Urine Creatinine Urine Total Protein Coronavirus (PCR) Crossmatch 05/31/20 06/01/20 06/01/20 23:51 04:00 05:48 WBC RBC Hgb Hct MCHC RDW Lymph % (Auto) [place] % (Auto) Eos % (Auto) Lymph # [place] # Lymph # (Auto) [place] # (Auto) Seg Neutrophils % Seg Neuts % (Manual) Lymphocytes % (Manual) Seg Neutrophils # Seg Neutrophils # Man Lymphocytes # (Manual) Monocytes % (Manual) Eosinophils % (Manual) Monocytes # (Manual) Eosinophils # (Manual) D-Dimer Heparin Anti-Xa Level ABG pH POC ABG pCO2 POC ABG pO2 ABG pO2 109.8 H ABG HCO3 18.8 L ABG O2 Saturation ABG Base Excess -5.9 L ABG Hemoglobin 7.8 L ABG Oxyhemoglobin VBG pH Oxyhemoglobin Sodium Potassium Chloride Carbon Dioxide BUN Creatinine Glucose POC Glucose 171 H 133 H Lactic Acid Calcium Ferritin AST Alkaline Phosphatase Magnesium Lactate Dehydrogenase Total Creatine Kinase CK-MB (CK-2) C-Reactive Protein Total Protein Albumin Troponin T HDL Cholesterol Urine WBC (Auto) Urine Creatinine Urine Total Protein Coronavirus (PCR) Crossmatch 06/01/20 06/01/20 06/02/20 12:28 17:29 00:08 WBC RBC Hgb Hct MCHC RDW Lymph % (Auto) [place] % (Auto) Eos % (Auto) Lymph # [place] # Lymph # (Auto) [place] # (Auto) Seg Neutrophils % Seg Neuts % (Manual) Lymphocytes % (Manual) Seg Neutrophils # Seg Neutrophils # Man Lymphocytes # (Manual) Monocytes % (Manual) Eosinophils % (Manual) Monocytes # (Manual) Eosinophils # (Manual) D-Dimer Heparin Anti-Xa Level ABG pH POC ABG pCO2 POC ABG pO2 ABG pO2 ABG HCO3 ABG O2 Saturation ABG Base Excess ABG Hemoglobin ABG Oxyhemoglobin VBG pH Oxyhemoglobin Sodium Potassium Chloride Carbon Dioxide BUN Creatinine Glucose POC Glucose 199 H 209 H 162 H Lactic Acid Calcium Ferritin AST Alkaline Phosphatase Magnesium Lactate Dehydrogenase Total Creatine Kinase CK-MB (CK-2) C-Reactive Protein Total Protein Albumin Troponin T HDL Cholesterol Urine WBC (Auto) Urine Creatinine Urine Total Protein Coronavirus (PCR) Crossmatch 06/02/20 06/02/20 06/02/20 04:20 04:20 04:44 WBC RBC Hgb 10.0 L Hct MCHC RDW Lymph % (Auto) [place] % (Auto) Eos % (Auto) Lymph # [place] # Lymph # (Auto) [place] # (Auto) Seg Neutrophils % Seg Neuts % (Manual) Lymphocytes % (Manual) Seg Neutrophils # Seg Neutrophils # Man Lymphocytes # (Manual) Monocytes % (Manual) Eosinophils % (Manual) Monocytes # (Manual) Eosinophils # (Manual) D-Dimer Heparin Anti-Xa Level 0.10 L ABG pH POC ABG pCO2 POC ABG pO2 ABG pO2 150.6 H ABG HCO3 ABG O2 Saturation ABG Base Excess -4.1 L ABG Hemoglobin 11.8 L ABG Oxyhemoglobin VBG pH Oxyhemoglobin Sodium Potassium Chloride Carbon Dioxide BUN Creatinine Glucose POC Glucose Lactic Acid Calcium Ferritin AST Alkaline Phosphatase Magnesium Lactate Dehydrogenase Total Creatine Kinase CK-MB (CK-2) C-Reactive Protein Total Protein Albumin Troponin T HDL Cholesterol Urine WBC (Auto) Urine Creatinine Urine Total Protein Coronavirus (PCR) Crossmatch 06/02/20 06/02/20 06/02/20 05:53 12:04 13:49 WBC RBC Hgb Hct MCHC RDW Lymph % (Auto) [place] % (Auto) Eos % (Auto) Lymph # [place] # Lymph # (Auto) [place] # (Auto) Seg Neutrophils % Seg Neuts % (Manual) Lymphocytes % (Manual) Seg Neutrophils # Seg Neutrophils # Man Lymphocytes # (Manual) Monocytes % (Manual) Eosinophils % (Manual) Monocytes # (Manual) Eosinophils # (Manual) D-Dimer Heparin Anti-Xa Level 0.28 L ABG pH POC ABG pCO2 POC ABG pO2 ABG pO2 ABG HCO3 ABG O2 Saturation ABG Base Excess ABG Hemoglobin ABG Oxyhemoglobin VBG pH Oxyhemoglobin Sodium Potassium Chloride Carbon Dioxide BUN Creatinine Glucose POC Glucose 149 H 220 H Lactic Acid Calcium Ferritin AST Alkaline Phosphatase Magnesium Lactate Dehydrogenase Total Creatine Kinase CK-MB (CK-2) C-Reactive Protein Total Protein Albumin Troponin T HDL Cholesterol Urine WBC (Auto) Urine Creatinine Urine Total Protein Coronavirus (PCR) Crossmatch 06/02/20 06/02/20 06/03/20 13:49 18:31 00:42 WBC RBC Hgb Hct MCHC RDW Lymph % (Auto) [place] % (Auto) Eos % (Auto) Lymph # [place] # Lymph # (Auto) [place] # (Auto) Seg Neutrophils % Seg Neuts % (Manual) Lymphocytes % (Manual) Seg Neutrophils # Seg Neutrophils # Man Lymphocytes # (Manual) Monocytes % (Manual) Eosinophils % (Manual) Monocytes # (Manual) Eosinophils # (Manual) D-Dimer 769.68 H Heparin Anti-Xa Level ABG pH POC ABG pCO2 POC ABG pO2 ABG pO2 ABG HCO3 ABG O2 Saturation ABG Base Excess ABG Hemoglobin ABG Oxyhemoglobin VBG pH Oxyhemoglobin Sodium Potassium Chloride Carbon Dioxide BUN Creatinine Glucose POC Glucose 225 H 212 H Lactic Acid Calcium Ferritin AST Alkaline Phosphatase Magnesium Lactate Dehydrogenase Total Creatine Kinase CK-MB (CK-2) C-Reactive Protein Total Protein Albumin Troponin T HDL Cholesterol Urine WBC (Auto) Urine Creatinine Urine Total Protein Coronavirus (PCR) Crossmatch 06/03/20 06/03/20 06/03/20 05:16 05:16 05:25 WBC 11.4 H RBC Hgb Hct MCHC RDW 16.4 H Lymph % (Auto) [place] % (Auto) Eos % (Auto) Lymph # [place] # Lymph # (Auto) [place] # (Auto) Seg Neutrophils % Seg Neuts % (Manual) Lymphocytes % (Manual) Seg Neutrophils # Seg Neutrophils # Man Lymphocytes # (Manual) Monocytes % (Manual) Eosinophils % (Manual) Monocytes # (Manual) Eosinophils # (Manual) D-Dimer Heparin Anti-Xa Level ABG pH POC ABG pCO2 POC ABG pO2 ABG pO2 160.9 H ABG HCO3 19.4 L ABG O2 Saturation ABG Base Excess -4.9 L ABG Hemoglobin 7.0 L ABG Oxyhemoglobin VBG pH Oxyhemoglobin Sodium Potassium Chloride Carbon Dioxide 18 L BUN 65 H Creatinine 2.0 H Glucose 175 H POC Glucose Lactic Acid Calcium 8.0 L Ferritin AST Alkaline Phosphatase Magnesium Lactate Dehydrogenase Total Creatine Kinase CK-MB (CK-2) C-Reactive Protein Total Protein 5.5 L Albumin 2.2 L Troponin T HDL Cholesterol Urine WBC (Auto) Urine Creatinine Urine Total Protein Coronavirus (PCR) Crossmatch 06/03/20 06/03/20 06/03/20 06:07 11:58 18:24 WBC RBC Hgb Hct MCHC RDW Lymph % (Auto) [place] % (Auto) Eos % (Auto) Lymph # [place] # Lymph # (Auto) [place] # (Auto) Seg Neutrophils % Seg Neuts % (Manual) Lymphocytes % (Manual) Seg Neutrophils # Seg Neutrophils # Man Lymphocytes # (Manual) Monocytes % (Manual) Eosinophils % (Manual) Monocytes # (Manual) Eosinophils # (Manual) D-Dimer Heparin Anti-Xa Level ABG pH POC ABG pCO2 POC ABG pO2 ABG pO2 ABG HCO3 ABG O2 Saturation ABG Base Excess ABG Hemoglobin ABG Oxyhemoglobin VBG pH Oxyhemoglobin Sodium Potassium Chloride Carbon Dioxide BUN Creatinine Glucose POC Glucose 177 H 163 H 211 H Lactic Acid Calcium Ferritin AST Alkaline Phosphatase Magnesium Lactate Dehydrogenase Total Creatine Kinase CK-MB (CK-2) C-Reactive Protein Total Protein Albumin Troponin T HDL Cholesterol Urine WBC (Auto) Urine Creatinine Urine Total Protein Coronavirus (PCR) Crossmatch 06/03/20 06/03/20 06/04/20 21:50 Unknown 00:26 WBC RBC Hgb Hct MCHC RDW Lymph % (Auto) [place] % (Auto) Eos % (Auto) Lymph # [place] # Lymph # (Auto) [place] # (Auto) Seg Neutrophils % Seg Neuts % (Manual) Lymphocytes % (Manual) Seg Neutrophils # Seg Neutrophils # Man Lymphocytes # (Manual) Monocytes % (Manual) Eosinophils % (Manual) Monocytes # (Manual) Eosinophils # (Manual) D-Dimer Heparin Anti-Xa Level ABG pH POC ABG pCO2 POC ABG pO2 ABG pO2 ABG HCO3 ABG O2 Saturation ABG Base Excess ABG Hemoglobin ABG Oxyhemoglobin VBG pH Oxyhemoglobin Sodium 135 L Potassium Chloride Carbon Dioxide 18 L BUN Creatinine Glucose POC Glucose 241 H Lactic Acid Calcium Ferritin AST Alkaline Phosphatase Magnesium Lactate Dehydrogenase Total Creatine Kinase CK-MB (CK-2) C-Reactive Protein Total Protein Albumin Troponin T HDL Cholesterol Urine WBC (Auto) 11.0 H Urine Creatinine Urine Total Protein Coronavirus (PCR) Crossmatch 06/04/20 06/04/20 06/04/20 03:35 04:19 04:19 WBC RBC 3.15 L Hgb 8.9 L Hct 26.8 L D MCHC RDW 15.9 H Lymph % (Auto) 6.0 L [place] % (Auto) Eos % (Auto) Lymph # 0.6 L [place] # Lymph # (Auto) [place] # (Auto) Seg Neutrophils % 86.6 H Seg Neuts % (Manual) Lymphocytes % (Manual) Seg Neutrophils # 9.1 H Seg Neutrophils # Man Lymphocytes # (Manual) Monocytes % (Manual) Eosinophils % (Manual) Monocytes # (Manual) Eosinophils # (Manual) D-Dimer Heparin Anti-Xa Level ABG pH 7.331 L POC ABG pCO2 POC ABG pO2 ABG pO2 ABG HCO3 ABG O2 Saturation ABG Base Excess -4.7 L ABG Hemoglobin 11.0 L ABG Oxyhemoglobin VBG pH Oxyhemoglobin 93.9 L Sodium 136 L Potassium Chloride Carbon Dioxide 20 L BUN 73 H Creatinine 2.0 H Glucose 192 H POC Glucose Lactic Acid Calcium 8.0 L Ferritin AST Alkaline Phosphatase Magnesium Lactate Dehydrogenase 271 H Total Creatine Kinase CK-MB (CK-2) C-Reactive Protein 2.20 H Total Protein 5.0 L Albumin 2.0 L Troponin T HDL Cholesterol Urine WBC (Auto) Urine Creatinine Urine Total Protein Coronavirus (PCR) Crossmatch 06/04/20 06/04/20 06/04/20 04:19 05:51 11:48 WBC RBC Hgb Hct MCHC RDW Lymph % (Auto) [place] % (Auto) Eos % (Auto) Lymph # [place] # Lymph # (Auto) [place] # (Auto) Seg Neutrophils % Seg Neuts % (Manual) Lymphocytes % (Manual) Seg Neutrophils # Seg Neutrophils # Man Lymphocytes # (Manual) Monocytes % (Manual) Eosinophils % (Manual) Monocytes # (Manual) Eosinophils # (Manual) D-Dimer 414.52 H Heparin Anti-Xa Level ABG pH POC ABG pCO2 POC ABG pO2 ABG pO2 ABG HCO3 ABG O2 Saturation ABG Base Excess ABG Hemoglobin ABG Oxyhemoglobin VBG pH Oxyhemoglobin Sodium Potassium Chloride Carbon Dioxide BUN Creatinine Glucose POC Glucose 179 H 213 H Lactic Acid Calcium Ferritin AST Alkaline Phosphatase Magnesium Lactate Dehydrogenase Total Creatine Kinase CK-MB (CK-2) C-Reactive Protein Total Protein Albumin Troponin T HDL Cholesterol Urine WBC (Auto) Urine Creatinine Urine Total Protein Coronavirus (PCR) Crossmatch 06/04/20 06/05/20 06/05/20 18:25 00:16 05:00 WBC RBC Hgb Hct MCHC RDW Lymph % (Auto) [place] % (Auto) Eos % (Auto) Lymph # [place] # Lymph # (Auto) [place] # (Auto) Seg Neutrophils % Seg Neuts % (Manual) Lymphocytes % (Manual) Seg Neutrophils # Seg Neutrophils # Man Lymphocytes # (Manual) Monocytes % (Manual) Eosinophils % (Manual) Monocytes # (Manual) Eosinophils # (Manual) D-Dimer Heparin Anti-Xa Level ABG pH 7.286 L POC ABG pCO2 POC ABG pO2 ABG pO2 96.2 H ABG HCO3 ABG O2 Saturation ABG Base Excess -6.3 L ABG Hemoglobin 8.8 L ABG Oxyhemoglobin VBG pH Oxyhemoglobin 94.8 L Sodium Potassium Chloride Carbon Dioxide BUN Creatinine Glucose POC Glucose 238 H 183 H Lactic Acid Calcium Ferritin AST Alkaline Phosphatase Magnesium Lactate Dehydrogenase Total Creatine Kinase CK-MB (CK-2) C-Reactive Protein Total Protein Albumin Troponin T HDL Cholesterol Urine WBC (Auto) Urine Creatinine Urine Total Protein Coronavirus (PCR) Crossmatch 06/05/20 06/05/20 06/05/20 05:39 07:25 07:25 WBC RBC 2.97 L Hgb 8.7 L Hct 25.7 L MCHC RDW 16.0 H Lymph % (Auto) 8.8 L [place] % (Auto) 13.3 H Eos % (Auto) Lymph # 0.8 L [place] # 1.3 H Lymph # (Auto) [place] # (Auto) Seg Neutrophils % 77.3 H Seg Neuts % (Manual) Lymphocytes % (Manual) Seg Neutrophils # Seg Neutrophils # Man Lymphocytes # (Manual) Monocytes % (Manual) Eosinophils % (Manual) Monocytes # (Manual) Eosinophils # (Manual) D-Dimer Heparin Anti-Xa Level ABG pH POC ABG pCO2 POC ABG pO2 ABG pO2 ABG HCO3 ABG O2 Saturation ABG Base Excess ABG Hemoglobin ABG Oxyhemoglobin VBG pH Oxyhemoglobin Sodium 133 L Potassium Chloride Carbon Dioxide 17 L BUN 89 H Creatinine 2.8 H Glucose 176 H POC Glucose 149 H Lactic Acid Calcium 7.7 L Ferritin AST Alkaline Phosphatase Magnesium Lactate Dehydrogenase Total Creatine Kinase CK-MB (CK-2) C-Reactive Protein Total Protein 4.2 L Albumin 1.9 L Troponin T HDL Cholesterol Urine WBC (Auto) Urine Creatinine Urine Total Protein Coronavirus (PCR) Crossmatch 06/05/20 06/05/20 06/05/20 07:25 12:05 15:41 WBC RBC Hgb Hct MCHC RDW Lymph % (Auto) [place] % (Auto) Eos % (Auto) Lymph # [place] # Lymph # (Auto) [place] # (Auto) Seg Neutrophils % Seg Neuts % (Manual) Lymphocytes % (Manual) Seg Neutrophils # Seg Neutrophils # Man Lymphocytes # (Manual) Monocytes % (Manual) Eosinophils % (Manual) Monocytes # (Manual) Eosinophils # (Manual) D-Dimer Heparin Anti-Xa Level 0.76 H 0.81 H ABG pH POC ABG pCO2 POC ABG pO2 ABG pO2 ABG HCO3 ABG O2 Saturation ABG Base Excess ABG Hemoglobin ABG Oxyhemoglobin VBG pH Oxyhemoglobin Sodium Potassium Chloride Carbon Dioxide BUN Creatinine Glucose POC Glucose 198 H Lactic Acid Calcium Ferritin AST Alkaline Phosphatase Magnesium Lactate Dehydrogenase Total Creatine Kinase CK-MB (CK-2) C-Reactive Protein Total Protein Albumin Troponin T HDL Cholesterol Urine WBC (Auto) Urine Creatinine Urine Total Protein Coronavirus (PCR) Crossmatch 06/05/20 06/05/20 06/06/20 18:08 23:25 04:00 WBC RBC Hgb Hct MCHC RDW Lymph % (Auto) [place] % (Auto) Eos % (Auto) Lymph # [place] # Lymph # (Auto) [place] # (Auto) Seg Neutrophils % Seg Neuts % (Manual) Lymphocytes % (Manual) Seg Neutrophils # Seg Neutrophils # Man Lymphocytes # (Manual) Monocytes % (Manual) Eosinophils % (Manual) Monocytes # (Manual) Eosinophils # (Manual) D-Dimer Heparin Anti-Xa Level ABG pH POC ABG pCO2 POC ABG pO2 ABG pO2 ABG HCO3 ABG O2 Saturation ABG Base Excess ABG Hemoglobin ABG Oxyhemoglobin VBG pH Oxyhemoglobin Sodium Potassium Chloride Carbon Dioxide BUN Creatinine Glucose POC Glucose 223 H 169 H Lactic Acid Calcium Ferritin AST Alkaline Phosphatase Magnesium Lactate Dehydrogenase Total Creatine Kinase CK-MB (CK-2) C-Reactive Protein Total Protein Albumin Troponin T HDL Cholesterol Urine WBC (Auto) 15.0 H Urine Creatinine Urine Total Protein Coronavirus (PCR) Crossmatch 06/06/20 06/06/20 06/06/20 04:00 05:33 05:38 WBC RBC 2.97 L Hgb 8.7 L Hct 26.8 L MCHC RDW 16.8 H Lymph % (Auto) [place] % (Auto) Eos % (Auto) Lymph # [place] # Lymph # (Auto) [place] # (Auto) Seg Neutrophils % Seg Neuts % (Manual) Lymphocytes % (Manual) Seg Neutrophils # Seg Neutrophils # Man Lymphocytes # (Manual) Monocytes % (Manual) Eosinophils % (Manual) Monocytes # (Manual) Eosinophils # (Manual) D-Dimer Heparin Anti-Xa Level ABG pH POC ABG pCO2 POC ABG pO2 ABG pO2 ABG HCO3 ABG O2 Saturation ABG Base Excess ABG Hemoglobin ABG Oxyhemoglobin VBG pH Oxyhemoglobin Sodium Potassium Chloride Carbon Dioxide BUN Creatinine Glucose POC Glucose 186 H Lactic Acid Calcium Ferritin AST Alkaline Phosphatase Magnesium Lactate Dehydrogenase Total Creatine Kinase CK-MB (CK-2) C-Reactive Protein Total Protein Albumin Troponin T HDL Cholesterol Urine WBC (Auto) Urine Creatinine 82.2 H Urine Total Protein 196 H Coronavirus (PCR) Crossmatch 06/06/20 06/06/20 06/06/20 05:38 12:25 17:03 WBC RBC Hgb Hct MCHC RDW Lymph % (Auto) [place] % (Auto) Eos % (Auto) Lymph # [place] # Lymph # (Auto) [place] # (Auto) Seg Neutrophils % Seg Neuts % (Manual) Lymphocytes % (Manual) Seg Neutrophils # Seg Neutrophils # Man Lymphocytes # (Manual) Monocytes % (Manual) Eosinophils % (Manual) Monocytes # (Manual) Eosinophils # (Manual) D-Dimer Heparin Anti-Xa Level ABG pH POC ABG pCO2 POC ABG pO2 ABG pO2 ABG HCO3 ABG O2 Saturation ABG Base Excess ABG Hemoglobin ABG Oxyhemoglobin VBG pH Oxyhemoglobin Sodium 134 L Potassium 5.2 H Chloride Carbon Dioxide 18 L BUN 97 H Creatinine 2.5 H Glucose 193 H POC Glucose 239 H 252 H Lactic Acid Calcium 7.5 L Ferritin AST Alkaline Phosphatase Magnesium Lactate Dehydrogenase Total Creatine Kinase CK-MB (CK-2) C-Reactive Protein Total Protein 4.1 L Albumin 1.9 L Troponin T HDL Cholesterol Urine WBC (Auto) Urine Creatinine Urine Total Protein Coronavirus (PCR) Crossmatch 06/07/20 06/07/20 06/07/20 00:16 01:49 04:00 WBC RBC 2.91 L Hgb 8.4 L Hct 25.0 L MCHC RDW 16.1 H Lymph % (Auto) 5.7 L [place] % (Auto) 10.5 H Eos % (Auto) Lymph # 0.6 L [place] # 1.1 H Lymph # (Auto) [place] # (Auto) Seg Neutrophils % 83.6 H Seg Neuts % (Manual) Lymphocytes % (Manual) Seg Neutrophils # 9.1 H Seg Neutrophils # Man Lymphocytes # (Manual) Monocytes % (Manual) Eosinophils % (Manual) Monocytes # (Manual) Eosinophils # (Manual) D-Dimer Heparin Anti-Xa Level 0.26 L ABG pH POC ABG pCO2 POC ABG pO2 ABG pO2 ABG HCO3 ABG O2 Saturation ABG Base Excess ABG Hemoglobin ABG Oxyhemoglobin VBG pH Oxyhemoglobin Sodium Potassium Chloride Carbon Dioxide BUN Creatinine Glucose POC Glucose 173 H Lactic Acid Calcium Ferritin AST Alkaline Phosphatase Magnesium Lactate Dehydrogenase Total Creatine Kinase CK-MB (CK-2) C-Reactive Protein Total Protein Albumin Troponin T HDL Cholesterol Urine WBC (Auto) Urine Creatinine Urine Total Protein Coronavirus (PCR) Crossmatch 06/07/20 06/07/20 06/07/20 04:00 04:54 05:51 WBC RBC Hgb Hct MCHC RDW Lymph % (Auto) [place] % (Auto) Eos % (Auto) Lymph # [place] # Lymph # (Auto) [place] # (Auto) Seg Neutrophils % Seg Neuts % (Manual) Lymphocytes % (Manual) Seg Neutrophils # Seg Neutrophils # Man Lymphocytes # (Manual) Monocytes % (Manual) Eosinophils % (Manual) Monocytes # (Manual) Eosinophils # (Manual) D-Dimer Heparin Anti-Xa Level ABG pH 7.317 L POC ABG pCO2 POC ABG pO2 ABG pO2 71.4 L ABG HCO3 ABG O2 Saturation 94.3 L ABG Base Excess -4.8 L ABG Hemoglobin 7.1 L ABG Oxyhemoglobin VBG pH Oxyhemoglobin 92.2 L Sodium 133 L Potassium Chloride Carbon Dioxide 18 L BUN 100 H Creatinine 2.5 H Glucose 158 H POC Glucose 168 H Lactic Acid Calcium 7.6 L Ferritin AST Alkaline Phosphatase Magnesium Lactate Dehydrogenase Total Creatine Kinase CK-MB (CK-2) C-Reactive Protein Total Protein 4.7 L Albumin 2.0 L Troponin T HDL Cholesterol Urine WBC (Auto) Urine Creatinine Urine Total Protein Coronavirus (PCR) Crossmatch 06/07/20 06/07/20 06/07/20 12:03 17:17 20:10 WBC RBC Hgb Hct MCHC RDW Lymph % (Auto) [place] % (Auto) Eos % (Auto) Lymph # [place] # Lymph # (Auto) [place] # (Auto) Seg Neutrophils % Seg Neuts % (Manual) Lymphocytes % (Manual) Seg Neutrophils # Seg Neutrophils # Man Lymphocytes # (Manual) Monocytes % (Manual) Eosinophils % (Manual) Monocytes # (Manual) Eosinophils # (Manual) D-Dimer Heparin Anti-Xa Level 0.17 L ABG pH POC ABG pCO2 POC ABG pO2 ABG pO2 ABG HCO3 ABG O2 Saturation ABG Base Excess ABG Hemoglobin ABG Oxyhemoglobin VBG pH Oxyhemoglobin Sodium Potassium Chloride Carbon Dioxide BUN Creatinine Glucose POC Glucose 276 H 281 H Lactic Acid Calcium Ferritin AST Alkaline Phosphatase Magnesium Lactate Dehydrogenase Total Creatine Kinase CK-MB (CK-2) C-Reactive Protein Total Protein Albumin Troponin T HDL Cholesterol Urine WBC (Auto) Urine Creatinine Urine Total Protein Coronavirus (PCR) Crossmatch 06/08/20 06/08/20 06/08/20 00:02 04:47 04:47 WBC 16.4 H RBC 3.07 L Hgb 8.6 L Hct 26.5 L MCHC RDW 16.3 H Lymph % (Auto) [place] % (Auto) Eos % (Auto) Lymph # [place] # Lymph # (Auto) [place] # (Auto) Seg Neutrophils % Seg Neuts % (Manual) 90.0 H Lymphocytes % (Manual) 3.0 L Seg Neutrophils # Seg Neutrophils # Man 14.8 H Lymphocytes # (Manual) 0.5 L Monocytes % (Manual) Eosinophils % (Manual) Monocytes # (Manual) 1.1 H Eosinophils # (Manual) D-Dimer Heparin Anti-Xa Level ABG pH POC ABG pCO2 POC ABG pO2 ABG pO2 ABG HCO3 ABG O2 Saturation ABG Base Excess ABG Hemoglobin ABG Oxyhemoglobin VBG pH Oxyhemoglobin Sodium 129 L Potassium Chloride 95.6 L Carbon Dioxide 17 L BUN 106 H Creatinine 2.5 H Glucose 213 H POC Glucose 242 H Lactic Acid Calcium 7.6 L Ferritin AST Alkaline Phosphatase Magnesium Lactate Dehydrogenase Total Creatine Kinase CK-MB (CK-2) C-Reactive Protein Total Protein 5.0 L Albumin 2.1 L Troponin T HDL Cholesterol Urine WBC (Auto) Urine Creatinine Urine Total Protein Coronavirus (PCR) Crossmatch 06/08/20 06/08/20 06/08/20 05:40 11:55 17:54 WBC RBC Hgb Hct MCHC RDW Lymph % (Auto) [place] % (Auto) Eos % (Auto) Lymph # [place] # Lymph # (Auto) [place] # (Auto) Seg Neutrophils % Seg Neuts % (Manual) Lymphocytes % (Manual) Seg Neutrophils # Seg Neutrophils # Man Lymphocytes # (Manual) Monocytes % (Manual) Eosinophils % (Manual) Monocytes # (Manual) Eosinophils # (Manual) D-Dimer Heparin Anti-Xa Level ABG pH POC ABG pCO2 POC ABG pO2 ABG pO2 ABG HCO3 ABG O2 Saturation ABG Base Excess ABG Hemoglobin ABG Oxyhemoglobin VBG pH Oxyhemoglobin Sodium Potassium Chloride Carbon Dioxide BUN Creatinine Glucose POC Glucose 221 H 218 H 163 H Lactic Acid Calcium Ferritin AST Alkaline Phosphatase Magnesium Lactate Dehydrogenase Total Creatine Kinase CK-MB (CK-2) C-Reactive Protein Total Protein Albumin Troponin T HDL Cholesterol Urine WBC (Auto) Urine Creatinine Urine Total Protein Coronavirus (PCR) Crossmatch 06/08/20 06/09/20 06/09/20 22:01 00:09 05:16 WBC 19.0 H RBC 3.35 L Hgb 9.2 L Hct 28.5 L MCHC RDW 16.3 H Lymph % (Auto) [place] % (Auto) Eos % (Auto) Lymph # [place] # Lymph # (Auto) [place] # (Auto) Seg Neutrophils % Seg Neuts % (Manual) 85.0 H Lymphocytes % (Manual) 7.0 L Seg Neutrophils # Seg Neutrophils # Man 16.2 H Lymphocytes # (Manual) Monocytes % (Manual) Eosinophils % (Manual) Monocytes # (Manual) 1.3 H Eosinophils # (Manual) D-Dimer Heparin Anti-Xa Level ABG pH POC ABG pCO2 POC ABG pO2 ABG pO2 ABG HCO3 ABG O2 Saturation ABG Base Excess ABG Hemoglobin ABG Oxyhemoglobin VBG pH Oxyhemoglobin Sodium Potassium Chloride Carbon Dioxide BUN Creatinine Glucose POC Glucose 182 H 150 H Lactic Acid Calcium Ferritin AST Alkaline Phosphatase Magnesium Lactate Dehydrogenase Total Creatine Kinase CK-MB (CK-2) C-Reactive Protein Total Protein Albumin Troponin T HDL Cholesterol Urine WBC (Auto) Urine Creatinine Urine Total Protein Coronavirus (PCR) Crossmatch 06/09/20 06/09/20 06/09/20 05:16 05:24 11:29 WBC RBC Hgb Hct MCHC RDW Lymph % (Auto) [place] % (Auto) Eos % (Auto) Lymph # [place] # Lymph # (Auto) [place] # (Auto) Seg Neutrophils % Seg Neuts % (Manual) Lymphocytes % (Manual) Seg Neutrophils # Seg Neutrophils # Man Lymphocytes # (Manual) Monocytes % (Manual) Eosinophils % (Manual) Monocytes # (Manual) Eosinophils # (Manual) D-Dimer Heparin Anti-Xa Level ABG pH POC ABG pCO2 POC ABG pO2 ABG pO2 ABG HCO3 ABG O2 Saturation ABG Base Excess ABG Hemoglobin ABG Oxyhemoglobin VBG pH Oxyhemoglobin Sodium 133 L Potassium Chloride Carbon Dioxide 19 L BUN 109 H Creatinine 2.1 H Glucose 133 H POC Glucose 128 H 119 H Lactic Acid Calcium 7.7 L Ferritin AST Alkaline Phosphatase < 5 L Magnesium Lactate Dehydrogenase Total Creatine Kinase CK-MB (CK-2) C-Reactive Protein Total Protein 4.6 L Albumin < 0.2 L Troponin T HDL Cholesterol Urine WBC (Auto) Urine Creatinine Urine Total Protein Coronavirus (PCR) Crossmatch 06/09/20 06/10/20 06/10/20 17:32 00:00 05:49 WBC RBC Hgb Hct MCHC RDW Lymph % (Auto) [place] % (Auto) Eos % (Auto) Lymph # [place] # Lymph # (Auto) [place] # (Auto) Seg Neutrophils % Seg Neuts % (Manual) Lymphocytes % (Manual) Seg Neutrophils # Seg Neutrophils # Man Lymphocytes # (Manual) Monocytes % (Manual) Eosinophils % (Manual) Monocytes # (Manual) Eosinophils # (Manual) D-Dimer Heparin Anti-Xa Level 0.19 L ABG pH POC ABG pCO2 POC ABG pO2 ABG pO2 ABG HCO3 ABG O2 Saturation ABG Base Excess ABG Hemoglobin ABG Oxyhemoglobin VBG pH Oxyhemoglobin Sodium Potassium Chloride Carbon Dioxide BUN Creatinine Glucose POC Glucose 106 H 117 H Lactic Acid Calcium Ferritin AST Alkaline Phosphatase Magnesium Lactate Dehydrogenase Total Creatine Kinase CK-MB (CK-2) C-Reactive Protein Total Protein Albumin Troponin T HDL Cholesterol Urine WBC (Auto) Urine Creatinine Urine Total Protein Coronavirus (PCR) Crossmatch 06/10/20 06/10/20 06/10/20 05:54 07:40 11:40 WBC RBC Hgb Hct MCHC RDW Lymph % (Auto) [place] % (Auto) Eos % (Auto) Lymph # [place] # Lymph # (Auto) [place] # (Auto) Seg Neutrophils % Seg Neuts % (Manual) Lymphocytes % (Manual) Seg Neutrophils # Seg Neutrophils # Man Lymphocytes # (Manual) Monocytes % (Manual) Eosinophils % (Manual) Monocytes # (Manual) Eosinophils # (Manual) D-Dimer Heparin Anti-Xa Level ABG pH POC ABG pCO2 POC ABG pO2 ABG pO2 ABG HCO3 ABG O2 Saturation ABG Base Excess ABG Hemoglobin ABG Oxyhemoglobin VBG pH Oxyhemoglobin Sodium 146 H D Potassium Chloride Carbon Dioxide 20 L BUN 99 H Creatinine 1.9 H Glucose 121 H POC Glucose 127 H 138 H Lactic Acid Calcium 8.2 L Ferritin AST Alkaline Phosphatase Magnesium Lactate Dehydrogenase Total Creatine Kinase CK-MB (CK-2) C-Reactive Protein Total Protein Albumin Troponin T HDL Cholesterol Urine WBC (Auto) Urine Creatinine Urine Total Protein Coronavirus (PCR) Crossmatch 06/10/20 06/10/20 06/10/20 14:44 17:31 23:22 WBC RBC Hgb Hct MCHC RDW Lymph % (Auto) [place] % (Auto) Eos % (Auto) Lymph # [place] # Lymph # (Auto) [place] # (Auto) Seg Neutrophils % Seg Neuts % (Manual) Lymphocytes % (Manual) Seg Neutrophils # Seg Neutrophils # Man Lymphocytes # (Manual) Monocytes % (Manual) Eosinophils % (Manual) Monocytes # (Manual) Eosinophils # (Manual) D-Dimer Heparin Anti-Xa Level 0.17 L ABG pH POC ABG pCO2 POC ABG pO2 ABG pO2 ABG HCO3 ABG O2 Saturation ABG Base Excess ABG Hemoglobin ABG Oxyhemoglobin VBG pH Oxyhemoglobin Sodium Potassium Chloride Carbon Dioxide BUN Creatinine Glucose POC Glucose 128 H 114 H Lactic Acid Calcium Ferritin AST Alkaline Phosphatase Magnesium Lactate Dehydrogenase Total Creatine Kinase CK-MB (CK-2) C-Reactive Protein Total Protein Albumin Troponin T HDL Cholesterol Urine WBC (Auto) Urine Creatinine Urine Total Protein Coronavirus (PCR) Crossmatch 06/11/20 06/11/20 06/11/20 00:22 03:45 03:45 WBC 14.6 H RBC 2.77 L Hgb 7.9 L Hct 24.3 L MCHC RDW 16.8 H Lymph % (Auto) 6.6 L [place] % (Auto) 8.5 H Eos % (Auto) Lymph # 1.0 L [place] # 1.2 H Lymph # (Auto) [place] # (Auto) Seg Neutrophils % 82.9 H Seg Neuts % (Manual) Lymphocytes % (Manual) Seg Neutrophils # 12.1 H Seg Neutrophils # Man Lymphocytes # (Manual) Monocytes % (Manual) Eosinophils % (Manual) Monocytes # (Manual) Eosinophils # (Manual) D-Dimer Heparin Anti-Xa Level 0.24 L ABG pH POC ABG pCO2 POC ABG pO2 ABG pO2 ABG HCO3 ABG O2 Saturation ABG Base Excess ABG Hemoglobin ABG Oxyhemoglobin VBG pH Oxyhemoglobin Sodium Potassium Chloride Carbon Dioxide 20 L BUN 88 H Creatinine 1.5 H Glucose 111 H POC Glucose Lactic Acid Calcium 8.2 L Ferritin AST Alkaline Phosphatase Magnesium Lactate Dehydrogenase Total Creatine Kinase CK-MB (CK-2) C-Reactive Protein Total Protein Albumin Troponin T HDL Cholesterol Urine WBC (Auto) Urine Creatinine Urine Total Protein Coronavirus (PCR) Crossmatch 06/11/20 06/11/20 06/11/20 06:03 10:22 11:11 WBC RBC Hgb Hct MCHC RDW Lymph % (Auto) [place] % (Auto) Eos % (Auto) Lymph # [place] # Lymph # (Auto) [place] # (Auto) Seg Neutrophils % Seg Neuts % (Manual) Lymphocytes % (Manual) Seg Neutrophils # Seg Neutrophils # Man Lymphocytes # (Manual) Monocytes % (Manual) Eosinophils % (Manual) Monocytes # (Manual) Eosinophils # (Manual) D-Dimer Heparin Anti-Xa Level 0.26 L ABG pH POC ABG pCO2 POC ABG pO2 ABG pO2 ABG HCO3 ABG O2 Saturation ABG Base Excess ABG Hemoglobin 9.6 L ABG Oxyhemoglobin VBG pH Oxyhemoglobin Sodium Potassium Chloride Carbon Dioxide BUN Creatinine Glucose POC Glucose 114 H Lactic Acid Calcium Ferritin AST Alkaline Phosphatase Magnesium Lactate Dehydrogenase Total Creatine Kinase CK-MB (CK-2) C-Reactive Protein Total Protein Albumin Troponin T HDL Cholesterol Urine WBC (Auto) Urine Creatinine Urine Total Protein Coronavirus (PCR) Crossmatch 06/11/20 06/11/20 06/12/20 12:24 17:24 00:21 WBC RBC Hgb Hct MCHC RDW Lymph % (Auto) [place] % (Auto) Eos % (Auto) Lymph # [place] # Lymph # (Auto) [place] # (Auto) Seg Neutrophils % Seg Neuts % (Manual) Lymphocytes % (Manual) Seg Neutrophils # Seg Neutrophils # Man Lymphocytes # (Manual) Monocytes % (Manual) Eosinophils % (Manual) Monocytes # (Manual) Eosinophils # (Manual) D-Dimer Heparin Anti-Xa Level ABG pH POC ABG pCO2 POC ABG pO2 ABG pO2 ABG HCO3 ABG O2 Saturation ABG Base Excess ABG Hemoglobin ABG Oxyhemoglobin VBG pH Oxyhemoglobin Sodium Potassium Chloride Carbon Dioxide BUN Creatinine Glucose POC Glucose 119 H 126 H 117 H Lactic Acid Calcium Ferritin AST Alkaline Phosphatase Magnesium Lactate Dehydrogenase Total Creatine Kinase CK-MB (CK-2) C-Reactive Protein Total Protein Albumin Troponin T HDL Cholesterol Urine WBC (Auto) Urine Creatinine Urine Total Protein Coronavirus (PCR) Crossmatch 06/12/20 06/12/20 06/12/20 02:46 02:46 05:46 WBC 13.2 H RBC 2.83 L Hgb 8.3 L Hct 24.3 L MCHC RDW 16.6 H Lymph % (Auto) 6.2 L [place] % (Auto) 9.5 H Eos % (Auto) Lymph # 0.8 L [place] # 1.3 H Lymph # (Auto) [place] # (Auto) Seg Neutrophils % 81.9 H Seg Neuts % (Manual) Lymphocytes % (Manual) Seg Neutrophils # 10.9 H Seg Neutrophils # Man Lymphocytes # (Manual) Monocytes % (Manual) Eosinophils % (Manual) Monocytes # (Manual) Eosinophils # (Manual) D-Dimer Heparin Anti-Xa Level ABG pH POC ABG pCO2 POC ABG pO2 ABG pO2 ABG HCO3 ABG O2 Saturation ABG Base Excess ABG Hemoglobin ABG Oxyhemoglobin VBG pH Oxyhemoglobin Sodium Potassium 3.5 L Chloride Carbon Dioxide BUN 77 H Creatinine 1.3 H Glucose POC Glucose 132 H Lactic Acid Calcium 8.3 L Ferritin AST Alkaline Phosphatase Magnesium Lactate Dehydrogenase Total Creatine Kinase CK-MB (CK-2) C-Reactive Protein Total Protein Albumin Troponin T HDL Cholesterol Urine WBC (Auto) Urine Creatinine Urine Total Protein Coronavirus (PCR) Crossmatch 06/12/20 06/12/20 06/12/20 09:20 12:16 17:48 WBC RBC Hgb Hct MCHC RDW Lymph % (Auto) [place] % (Auto) Eos % (Auto) Lymph # [place] # Lymph # (Auto) [place] # (Auto) Seg Neutrophils % Seg Neuts % (Manual) Lymphocytes % (Manual) Seg Neutrophils # Seg Neutrophils # Man Lymphocytes # (Manual) Monocytes % (Manual) Eosinophils % (Manual) Monocytes # (Manual) Eosinophils # (Manual) D-Dimer Heparin Anti-Xa Level ABG pH POC ABG pCO2 POC ABG pO2 ABG pO2 91.1 H ABG HCO3 ABG O2 Saturation ABG Base Excess ABG Hemoglobin ABG Oxyhemoglobin VBG pH Oxyhemoglobin 94.8 L Sodium Potassium Chloride Carbon Dioxide BUN Creatinine Glucose POC Glucose 167 H 182 H Lactic Acid Calcium Ferritin AST Alkaline Phosphatase Magnesium Lactate Dehydrogenase Total Creatine Kinase CK-MB (CK-2) C-Reactive Protein Total Protein Albumin Troponin T HDL Cholesterol Urine WBC (Auto) Urine Creatinine Urine Total Protein Coronavirus (PCR) Crossmatch 06/13/20 06/13/20 06/13/20 00:08 05:37 09:09 WBC RBC Hgb Hct MCHC RDW Lymph % (Auto) [place] % (Auto) Eos % (Auto) Lymph # [place] # Lymph # (Auto) [place] # (Auto) Seg Neutrophils % Seg Neuts % (Manual) Lymphocytes % (Manual) Seg Neutrophils # Seg Neutrophils # Man Lymphocytes # (Manual) Monocytes % (Manual) Eosinophils % (Manual) Monocytes # (Manual) Eosinophils # (Manual) D-Dimer Heparin Anti-Xa Level 0.86 H ABG pH POC ABG pCO2 POC ABG pO2 ABG pO2 ABG HCO3 ABG O2 Saturation ABG Base Excess ABG Hemoglobin ABG Oxyhemoglobin VBG pH Oxyhemoglobin Sodium Potassium Chloride Carbon Dioxide BUN Creatinine Glucose POC Glucose 142 H 119 H Lactic Acid Calcium Ferritin AST Alkaline Phosphatase Magnesium Lactate Dehydrogenase Total Creatine Kinase CK-MB (CK-2) C-Reactive Protein Total Protein Albumin Troponin T HDL Cholesterol Urine WBC (Auto) Urine Creatinine Urine Total Protein Coronavirus (PCR) Crossmatch 06/13/20 06/13/20 06/13/20 12:28 17:55 21:17 WBC RBC Hgb Hct MCHC RDW Lymph % (Auto) [place] % (Auto) Eos % (Auto) Lymph # [place] # Lymph # (Auto) [place] # (Auto) Seg Neutrophils % Seg Neuts % (Manual) Lymphocytes % (Manual) Seg Neutrophils # Seg Neutrophils # Man Lymphocytes # (Manual) Monocytes % (Manual) Eosinophils % (Manual) Monocytes # (Manual) Eosinophils # (Manual) D-Dimer Heparin Anti-Xa Level ABG pH POC ABG pCO2 POC ABG pO2 ABG pO2 ABG HCO3 ABG O2 Saturation ABG Base Excess ABG Hemoglobin ABG Oxyhemoglobin VBG pH Oxyhemoglobin Sodium Potassium Chloride Carbon Dioxide BUN 61 H Creatinine Glucose 131 H POC Glucose 165 H 174 H Lactic Acid Calcium Ferritin AST Alkaline Phosphatase Magnesium Lactate Dehydrogenase Total Creatine Kinase CK-MB (CK-2) C-Reactive Protein Total Protein Albumin Troponin T HDL Cholesterol Urine WBC (Auto) Urine Creatinine Urine Total Protein Coronavirus (PCR) Crossmatch 06/13/20 06/13/20 06/14/20 21:17 23:50 05:34 WBC RBC Hgb Hct MCHC RDW Lymph % (Auto) [place] % (Auto) Eos % (Auto) Lymph # [place] # Lymph # (Auto) [place] # (Auto) Seg Neutrophils % Seg Neuts % (Manual) Lymphocytes % (Manual) Seg Neutrophils # Seg Neutrophils # Man Lymphocytes # (Manual) Monocytes % (Manual) Eosinophils % (Manual) Monocytes # (Manual) Eosinophils # (Manual) D-Dimer Heparin Anti-Xa Level 0.72 H ABG pH POC ABG pCO2 POC ABG pO2 ABG pO2 ABG HCO3 ABG O2 Saturation ABG Base Excess ABG Hemoglobin ABG Oxyhemoglobin VBG pH Oxyhemoglobin Sodium 146 H Potassium Chloride 107.6 H Carbon Dioxide BUN 61 H Creatinine 1.3 H Glucose 135 H POC Glucose 146 H Lactic Acid Calcium Ferritin AST Alkaline Phosphatase Magnesium Lactate Dehydrogenase Total Creatine Kinase CK-MB (CK-2) C-Reactive Protein Total Protein Albumin Troponin T HDL Cholesterol Urine WBC (Auto) Urine Creatinine Urine Total Protein Coronavirus (PCR) Crossmatch 06/14/20 06/14/20 06/14/20 06:11 09:28 11:30 WBC RBC Hgb Hct MCHC RDW Lymph % (Auto) [place] % (Auto) Eos % (Auto) Lymph # [place] # Lymph # (Auto) [place] # (Auto) Seg Neutrophils % Seg Neuts % (Manual) Lymphocytes % (Manual) Seg Neutrophils # Seg Neutrophils # Man Lymphocytes # (Manual) Monocytes % (Manual) Eosinophils % (Manual) Monocytes # (Manual) Eosinophils # (Manual) D-Dimer Heparin Anti-Xa Level 0.90 H ABG pH POC ABG pCO2 POC ABG pO2 ABG pO2 ABG HCO3 ABG O2 Saturation ABG Base Excess ABG Hemoglobin ABG Oxyhemoglobin VBG pH Oxyhemoglobin Sodium Potassium Chloride Carbon Dioxide BUN Creatinine Glucose POC Glucose 141 H 186 H Lactic Acid Calcium Ferritin AST Alkaline Phosphatase Magnesium Lactate Dehydrogenase Total Creatine Kinase CK-MB (CK-2) C-Reactive Protein Total Protein Albumin Troponin T HDL Cholesterol Urine WBC (Auto) Urine Creatinine Urine Total Protein Coronavirus (PCR) Crossmatch 06/14/20 06/14/20 06/14/20 16:07 18:16 23:51 WBC RBC Hgb Hct MCHC RDW Lymph % (Auto) [place] % (Auto) Eos % (Auto) Lymph # [place] # Lymph # (Auto) [place] # (Auto) Seg Neutrophils % Seg Neuts % (Manual) Lymphocytes % (Manual) Seg Neutrophils # Seg Neutrophils # Man Lymphocytes # (Manual) Monocytes % (Manual) Eosinophils % (Manual) Monocytes # (Manual) Eosinophils # (Manual) D-Dimer Heparin Anti-Xa Level 0.82 H ABG pH POC ABG pCO2 POC ABG pO2 ABG pO2 ABG HCO3 ABG O2 Saturation ABG Base Excess ABG Hemoglobin ABG Oxyhemoglobin VBG pH Oxyhemoglobin Sodium Potassium Chloride Carbon Dioxide BUN Creatinine Glucose POC Glucose 106 H 154 H Lactic Acid Calcium Ferritin AST Alkaline Phosphatase Magnesium Lactate Dehydrogenase Total Creatine Kinase CK-MB (CK-2) C-Reactive Protein Total Protein Albumin Troponin T HDL Cholesterol Urine WBC (Auto) Urine Creatinine Urine Total Protein Coronavirus (PCR) Crossmatch 06/15/20 06/15/20 06/15/20 04:24 04:24 05:59 WBC RBC 2.75 L Hgb 7.9 L Hct 24.0 L MCHC RDW 16.4 H Lymph % (Auto) 12.9 L [place] % (Auto) 8.7 H Eos % (Auto) 4.6 H Lymph # 1.1 L [place] # Lymph # (Auto) [place] # (Auto) Seg Neutrophils % 73.2 H Seg Neuts % (Manual) Lymphocytes % (Manual) Seg Neutrophils # Seg Neutrophils # Man Lymphocytes # (Manual) Monocytes % (Manual) Eosinophils % (Manual) Monocytes # (Manual) Eosinophils # (Manual) D-Dimer Heparin Anti-Xa Level ABG pH POC ABG pCO2 POC ABG pO2 ABG pO2 ABG HCO3 ABG O2 Saturation ABG Base Excess ABG Hemoglobin ABG Oxyhemoglobin VBG pH Oxyhemoglobin Sodium Potassium 3.4 L Chloride Carbon Dioxide BUN 55 H Creatinine 1.3 H Glucose 142 H POC Glucose 131 H Lactic Acid Calcium Ferritin AST Alkaline Phosphatase Magnesium Lactate Dehydrogenase Total Creatine Kinase CK-MB (CK-2) C-Reactive Protein Total Protein Albumin Troponin T HDL Cholesterol Urine WBC (Auto) Urine Creatinine Urine Total Protein Coronavirus (PCR) Crossmatch 06/15/20 06/15/20 06/16/20 12:33 17:07 00:22 WBC RBC Hgb Hct MCHC RDW Lymph % (Auto) [place] % (Auto) Eos % (Auto) Lymph # [place] # Lymph # (Auto) [place] # (Auto) Seg Neutrophils % Seg Neuts % (Manual) Lymphocytes % (Manual) Seg Neutrophils # Seg Neutrophils # Man Lymphocytes # (Manual) Monocytes % (Manual) Eosinophils % (Manual) Monocytes # (Manual) Eosinophils # (Manual) D-Dimer Heparin Anti-Xa Level 0.21 L ABG pH POC ABG pCO2 POC ABG pO2 ABG pO2 ABG HCO3 ABG O2 Saturation ABG Base Excess ABG Hemoglobin ABG Oxyhemoglobin VBG pH Oxyhemoglobin Sodium Potassium Chloride Carbon Dioxide BUN Creatinine Glucose POC Glucose 180 H 185 H Lactic Acid Calcium Ferritin AST Alkaline Phosphatase Magnesium Lactate Dehydrogenase Total Creatine Kinase CK-MB (CK-2) C-Reactive Protein Total Protein Albumin Troponin T HDL Cholesterol Urine WBC (Auto) Urine Creatinine Urine Total Protein Coronavirus (PCR) Crossmatch 06/16/20 06/16/20 06/16/20 01:45 08:06 09:15 WBC RBC Hgb Hct MCHC RDW Lymph % (Auto) [place] % (Auto) Eos % (Auto) Lymph # [place] # Lymph # (Auto) [place] # (Auto) Seg Neutrophils % Seg Neuts % (Manual) Lymphocytes % (Manual) Seg Neutrophils # Seg Neutrophils # Man Lymphocytes # (Manual) Monocytes % (Manual) Eosinophils % (Manual) Monocytes # (Manual) Eosinophils # (Manual) D-Dimer Heparin Anti-Xa Level ABG pH POC ABG pCO2 POC ABG pO2 ABG pO2 ABG HCO3 ABG O2 Saturation ABG Base Excess ABG Hemoglobin ABG Oxyhemoglobin VBG pH Oxyhemoglobin Sodium Potassium Chloride Carbon Dioxide BUN 49 H Creatinine Glucose 154 H POC Glucose 140 H 171 H Lactic Acid Calcium Ferritin AST Alkaline Phosphatase Magnesium Lactate Dehydrogenase Total Creatine Kinase CK-MB (CK-2) C-Reactive Protein Total Protein Albumin Troponin T HDL Cholesterol Urine WBC (Auto) Urine Creatinine Urine Total Protein Coronavirus (PCR) Crossmatch 06/16/20 06/16/20 06/16/20 10:46 12:33 17:54 WBC RBC Hgb Hct MCHC RDW Lymph % (Auto) [place] % (Auto) Eos % (Auto) Lymph # [place] # Lymph # (Auto) [place] # (Auto) Seg Neutrophils % Seg Neuts % (Manual) Lymphocytes % (Manual) Seg Neutrophils # Seg Neutrophils # Man Lymphocytes # (Manual) Monocytes % (Manual) Eosinophils % (Manual) Monocytes # (Manual) Eosinophils # (Manual) D-Dimer Heparin Anti-Xa Level 0.12 L ABG pH POC ABG pCO2 POC ABG pO2 ABG pO2 ABG HCO3 ABG O2 Saturation ABG Base Excess ABG Hemoglobin ABG Oxyhemoglobin VBG pH Oxyhemoglobin Sodium Potassium Chloride Carbon Dioxide BUN Creatinine Glucose POC Glucose 166 H 151 H Lactic Acid Calcium Ferritin AST Alkaline Phosphatase Magnesium Lactate Dehydrogenase Total Creatine Kinase CK-MB (CK-2) C-Reactive Protein Total Protein Albumin Troponin T HDL Cholesterol Urine WBC (Auto) Urine Creatinine Urine Total Protein Coronavirus (PCR) Crossmatch 06/16/20 06/17/20 06/17/20 18:47 00:00 02:19 WBC RBC Hgb Hct MCHC RDW Lymph % (Auto) [place] % (Auto) Eos % (Auto) Lymph # [place] # Lymph # (Auto) [place] # (Auto) Seg Neutrophils % Seg Neuts % (Manual) Lymphocytes % (Manual) Seg Neutrophils # Seg Neutrophils # Man Lymphocytes # (Manual) Monocytes % (Manual) Eosinophils % (Manual) Monocytes # (Manual) Eosinophils # (Manual) D-Dimer Heparin Anti-Xa Level 0.73 H 0.77 H ABG pH POC ABG pCO2 POC ABG pO2 ABG pO2 ABG HCO3 ABG O2 Saturation ABG Base Excess ABG Hemoglobin ABG Oxyhemoglobin VBG pH Oxyhemoglobin Sodium Potassium Chloride Carbon Dioxide BUN Creatinine Glucose POC Glucose 139 H Lactic Acid Calcium Ferritin AST Alkaline Phosphatase Magnesium Lactate Dehydrogenase Total Creatine Kinase CK-MB (CK-2) C-Reactive Protein Total Protein Albumin Troponin T HDL Cholesterol Urine WBC (Auto) Urine Creatinine Urine Total Protein Coronavirus (PCR) Crossmatch 06/17/20 06/17/20 06/17/20 06:07 11:42 16:43 WBC RBC Hgb Hct MCHC RDW Lymph % (Auto) [place] % (Auto) Eos % (Auto) Lymph # [place] # Lymph # (Auto) [place] # (Auto) Seg Neutrophils % Seg Neuts % (Manual) Lymphocytes % (Manual) Seg Neutrophils # Seg Neutrophils # Man Lymphocytes # (Manual) Monocytes % (Manual) Eosinophils % (Manual) Monocytes # (Manual) Eosinophils # (Manual) D-Dimer Heparin Anti-Xa Level 0.73 H ABG pH POC ABG pCO2 POC ABG pO2 ABG pO2 ABG HCO3 ABG O2 Saturation ABG Base Excess ABG Hemoglobin ABG Oxyhemoglobin VBG pH Oxyhemoglobin Sodium Potassium Chloride Carbon Dioxide BUN Creatinine Glucose POC Glucose 169 H 169 H Lactic Acid Calcium Ferritin AST Alkaline Phosphatase Magnesium Lactate Dehydrogenase Total Creatine Kinase CK-MB (CK-2) C-Reactive Protein Total Protein Albumin Troponin T HDL Cholesterol Urine WBC (Auto) Urine Creatinine Urine Total Protein Coronavirus (PCR) Crossmatch 06/17/20 06/17/20 06/17/20 18:18 23:08 23:16 WBC RBC Hgb Hct MCHC RDW Lymph % (Auto) [place] % (Auto) Eos % (Auto) Lymph # [place] # Lymph # (Auto) [place] # (Auto) Seg Neutrophils % Seg Neuts % (Manual) Lymphocytes % (Manual) Seg Neutrophils # Seg Neutrophils # Man Lymphocytes # (Manual) Monocytes % (Manual) Eosinophils % (Manual) Monocytes # (Manual) Eosinophils # (Manual) D-Dimer Heparin Anti-Xa Level 0.71 H ABG pH POC ABG pCO2 POC ABG pO2 ABG pO2 ABG HCO3 ABG O2 Saturation ABG Base Excess ABG Hemoglobin ABG Oxyhemoglobin VBG pH Oxyhemoglobin Sodium Potassium Chloride Carbon Dioxide BUN Creatinine Glucose POC Glucose 159 H 134 H Lactic Acid Calcium Ferritin AST Alkaline Phosphatase Magnesium Lactate Dehydrogenase Total Creatine Kinase CK-MB (CK-2) C-Reactive Protein Total Protein Albumin Troponin T HDL Cholesterol Urine WBC (Auto) Urine Creatinine Urine Total Protein Coronavirus (PCR) Crossmatch 06/18/20 06/18/20 06/18/20 04:42 05:52 11:50 WBC RBC Hgb Hct MCHC RDW Lymph % (Auto) [place] % (Auto) Eos % (Auto) Lymph # [place] # Lymph # (Auto) [place] # (Auto) Seg Neutrophils % Seg Neuts % (Manual) Lymphocytes % (Manual) Seg Neutrophils # Seg Neutrophils # Man Lymphocytes # (Manual) Monocytes % (Manual) Eosinophils % (Manual) Monocytes # (Manual) Eosinophils # (Manual) D-Dimer Heparin Anti-Xa Level ABG pH POC ABG pCO2 POC ABG pO2 ABG pO2 ABG HCO3 ABG O2 Saturation ABG Base Excess ABG Hemoglobin ABG Oxyhemoglobin VBG pH Oxyhemoglobin Sodium Potassium Chloride Carbon Dioxide BUN 44 H Creatinine Glucose 115 H POC Glucose 171 H 167 H Lactic Acid Calcium Ferritin AST Alkaline Phosphatase Magnesium Lactate Dehydrogenase Total Creatine Kinase CK-MB (CK-2) C-Reactive Protein Total Protein Albumin Troponin T HDL Cholesterol Urine WBC (Auto) Urine Creatinine Urine Total Protein Coronavirus (PCR) Crossmatch 06/18/20 06/19/20 06/19/20 23:46 05:48 07:52 WBC RBC Hgb Hct MCHC RDW Lymph % (Auto) [place] % (Auto) Eos % (Auto) Lymph # [place] # Lymph # (Auto) [place] # (Auto) Seg Neutrophils % Seg Neuts % (Manual) Lymphocytes % (Manual) Seg Neutrophils # Seg Neutrophils # Man Lymphocytes # (Manual) Monocytes % (Manual) Eosinophils % (Manual) Monocytes # (Manual) Eosinophils # (Manual) D-Dimer Heparin Anti-Xa Level ABG pH POC ABG pCO2 POC ABG pO2 ABG pO2 ABG HCO3 ABG O2 Saturation ABG Base Excess ABG Hemoglobin ABG Oxyhemoglobin VBG pH Oxyhemoglobin Sodium Potassium Chloride Carbon Dioxide BUN Creatinine Glucose POC Glucose 130 H 207 H 175 H Lactic Acid Calcium Ferritin AST Alkaline Phosphatase Magnesium Lactate Dehydrogenase Total Creatine Kinase CK-MB (CK-2) C-Reactive Protein Total Protein Albumin Troponin T HDL Cholesterol Urine WBC (Auto) Urine Creatinine Urine Total Protein Coronavirus (PCR) Crossmatch 06/19/20 06/19/20 06/20/20 11:42 22:54 05:17 WBC RBC Hgb Hct MCHC RDW Lymph % (Auto) [place] % (Auto) Eos % (Auto) Lymph # [place] # Lymph # (Auto) [place] # (Auto) Seg Neutrophils % Seg Neuts % (Manual) Lymphocytes % (Manual) Seg Neutrophils # Seg Neutrophils # Man Lymphocytes # (Manual) Monocytes % (Manual) Eosinophils % (Manual) Monocytes # (Manual) Eosinophils # (Manual) D-Dimer Heparin Anti-Xa Level ABG pH POC ABG pCO2 POC ABG pO2 ABG pO2 ABG HCO3 ABG O2 Saturation ABG Base Excess ABG Hemoglobin ABG Oxyhemoglobin VBG pH Oxyhemoglobin Sodium Potassium Chloride Carbon Dioxide BUN Creatinine Glucose POC Glucose 166 H 135 H 218 H Lactic Acid Calcium Ferritin AST Alkaline Phosphatase Magnesium Lactate Dehydrogenase Total Creatine Kinase CK-MB (CK-2) C-Reactive Protein Total Protein Albumin Troponin T HDL Cholesterol Urine WBC (Auto) Urine Creatinine Urine Total Protein Coronavirus (PCR) Crossmatch 06/20/20 06/20/20 06/20/20 12:04 16:25 16:35 WBC RBC Hgb Hct MCHC RDW Lymph % (Auto) [place] % (Auto) Eos % (Auto) Lymph # [place] # Lymph # (Auto) [place] # (Auto) Seg Neutrophils % Seg Neuts % (Manual) Lymphocytes % (Manual) Seg Neutrophils # Seg Neutrophils # Man Lymphocytes # (Manual) Monocytes % (Manual) Eosinophils % (Manual) Monocytes # (Manual) Eosinophils # (Manual) D-Dimer Heparin Anti-Xa Level ABG pH POC ABG pCO2 POC ABG pO2 ABG pO2 59.6 L ABG HCO3 28.7 H ABG O2 Saturation 93.5 L ABG Base Excess 3.4 H ABG Hemoglobin 7.2 L ABG Oxyhemoglobin VBG pH Oxyhemoglobin 91.3 L Sodium Potassium Chloride Carbon Dioxide BUN Creatinine Glucose POC Glucose 194 H 137 H Lactic Acid Calcium Ferritin AST Alkaline Phosphatase Magnesium Lactate Dehydrogenase Total Creatine Kinase CK-MB (CK-2) C-Reactive Protein Total Protein Albumin Troponin T HDL Cholesterol Urine WBC (Auto) Urine Creatinine Urine Total Protein Coronavirus (PCR) Crossmatch 06/20/20 06/21/20 06/21/20 23:59 06:25 12:01 WBC RBC Hgb Hct MCHC RDW Lymph % (Auto) [place] % (Auto) Eos % (Auto) Lymph # [place] # Lymph # (Auto) [place] # (Auto) Seg Neutrophils % Seg Neuts % (Manual) Lymphocytes % (Manual) Seg Neutrophils # Seg Neutrophils # Man Lymphocytes # (Manual) Monocytes % (Manual) Eosinophils % (Manual) Monocytes # (Manual) Eosinophils # (Manual) D-Dimer Heparin Anti-Xa Level ABG pH POC ABG pCO2 POC ABG pO2 ABG pO2 ABG HCO3 ABG O2 Saturation ABG Base Excess ABG Hemoglobin ABG Oxyhemoglobin VBG pH Oxyhemoglobin Sodium Potassium Chloride Carbon Dioxide BUN Creatinine Glucose POC Glucose 156 H 177 H 195 H Lactic Acid Calcium Ferritin AST Alkaline Phosphatase Magnesium Lactate Dehydrogenase Total Creatine Kinase CK-MB (CK-2) C-Reactive Protein Total Protein Albumin Troponin T HDL Cholesterol Urine WBC (Auto) Urine Creatinine Urine Total Protein Coronavirus (PCR) Crossmatch 06/21/20 06/21/20 06/22/20 17:04 21:51 05:06 WBC RBC Hgb Hct MCHC RDW Lymph % (Auto) [place] % (Auto) Eos % (Auto) Lymph # [place] # Lymph # (Auto) [place] # (Auto) Seg Neutrophils % Seg Neuts % (Manual) Lymphocytes % (Manual) Seg Neutrophils # Seg Neutrophils # Man Lymphocytes # (Manual) Monocytes % (Manual) Eosinophils % (Manual) Monocytes # (Manual) Eosinophils # (Manual) D-Dimer Heparin Anti-Xa Level ABG pH POC ABG pCO2 POC ABG pO2 ABG pO2 ABG HCO3 ABG O2 Saturation ABG Base Excess ABG Hemoglobin ABG Oxyhemoglobin VBG pH Oxyhemoglobin Sodium Potassium Chloride Carbon Dioxide BUN Creatinine Glucose POC Glucose 156 H 154 H 167 H Lactic Acid Calcium Ferritin AST Alkaline Phosphatase Magnesium Lactate Dehydrogenase Total Creatine Kinase CK-MB (CK-2) C-Reactive Protein Total Protein Albumin Troponin T HDL Cholesterol Urine WBC (Auto) Urine Creatinine Urine Total Protein Coronavirus (PCR) Crossmatch 06/22/20 06/22/20 06/22/20 11:20 15:27 16:58 WBC RBC Hgb Hct MCHC RDW Lymph % (Auto) [place] % (Auto) Eos % (Auto) Lymph # [place] # Lymph # (Auto) [place] # (Auto) Seg Neutrophils % Seg Neuts % (Manual) Lymphocytes % (Manual) Seg Neutrophils # Seg Neutrophils # Man Lymphocytes # (Manual) Monocytes % (Manual) Eosinophils % (Manual) Monocytes # (Manual) Eosinophils # (Manual) D-Dimer Heparin Anti-Xa Level ABG pH 7.206 L POC ABG pCO2 79.9 H POC ABG pO2 ABG pO2 ABG HCO3 ABG O2 Saturation ABG Base Excess ABG Hemoglobin 8.3 L ABG Oxyhemoglobin VBG pH Oxyhemoglobin Sodium Potassium Chloride Carbon Dioxide BUN Creatinine Glucose POC Glucose 181 H 230 H Lactic Acid Calcium Ferritin AST Alkaline Phosphatase Magnesium Lactate Dehydrogenase Total Creatine Kinase CK-MB (CK-2) C-Reactive Protein Total Protein Albumin Troponin T HDL Cholesterol Urine WBC (Auto) Urine Creatinine Urine Total Protein Coronavirus (PCR) Crossmatch 06/22/20 06/23/20 06/23/20 22:26 05:49 05:49 WBC RBC 2.58 L Hgb 7.4 L Hct 23.2 L MCHC RDW 17.0 H Lymph % (Auto) [place] % (Auto) 11.2 H Eos % (Auto) Lymph # 1.0 L [place] # Lymph # (Auto) [place] # (Auto) Seg Neutrophils % Seg Neuts % (Manual) Lymphocytes % (Manual) Seg Neutrophils # Seg Neutrophils # Man Lymphocytes # (Manual) Monocytes % (Manual) Eosinophils % (Manual) Monocytes # (Manual) Eosinophils # (Manual) D-Dimer Heparin Anti-Xa Level ABG pH POC ABG pCO2 POC ABG pO2 ABG pO2 ABG HCO3 ABG O2 Saturation ABG Base Excess ABG Hemoglobin ABG Oxyhemoglobin VBG pH Oxyhemoglobin Sodium Potassium Chloride Carbon Dioxide BUN 68 H Creatinine 2.4 H Glucose 198 H POC Glucose 195 H Lactic Acid Calcium Ferritin AST Alkaline Phosphatase Magnesium Lactate Dehydrogenase Total Creatine Kinase CK-MB (CK-2) C-Reactive Protein Total Protein Albumin Troponin T HDL Cholesterol Urine WBC (Auto) Urine Creatinine Urine Total Protein Coronavirus (PCR) Crossmatch 06/23/20 06/23/20 06/23/20 05:50 12:29 12:34 WBC RBC Hgb Hct MCHC RDW Lymph % (Auto) [place] % (Auto) Eos % (Auto) Lymph # [place] # Lymph # (Auto) [place] # (Auto) Seg Neutrophils % Seg Neuts % (Manual) Lymphocytes % (Manual) Seg Neutrophils # Seg Neutrophils # Man Lymphocytes # (Manual) Monocytes % (Manual) Eosinophils % (Manual) Monocytes # (Manual) Eosinophils # (Manual) D-Dimer Heparin Anti-Xa Level ABG pH POC ABG pCO2 54.7 H POC ABG pO2 68.8 L ABG pO2 ABG HCO3 ABG O2 Saturation ABG Base Excess ABG Hemoglobin 9.8 L ABG Oxyhemoglobin 92.6 L VBG pH Oxyhemoglobin Sodium Potassium Chloride Carbon Dioxide BUN Creatinine Glucose POC Glucose 202 H 218 H Lactic Acid Calcium Ferritin AST Alkaline Phosphatase Magnesium Lactate Dehydrogenase Total Creatine Kinase CK-MB (CK-2) C-Reactive Protein Total Protein Albumin Troponin T HDL Cholesterol Urine WBC (Auto) Urine Creatinine Urine Total Protein Coronavirus (PCR) Crossmatch 06/23/20 06/23/20 06/24/20 16:02 22:22 01:06 WBC RBC Hgb Hct MCHC RDW Lymph % (Auto) [place] % (Auto) Eos % (Auto) Lymph # [place] # Lymph # (Auto) [place] # (Auto) Seg Neutrophils % Seg Neuts % (Manual) Lymphocytes % (Manual) Seg Neutrophils # Seg Neutrophils # Man Lymphocytes # (Manual) Monocytes % (Manual) Eosinophils % (Manual) Monocytes # (Manual) Eosinophils # (Manual) D-Dimer Heparin Anti-Xa Level ABG pH POC ABG pCO2 POC ABG pO2 ABG pO2 ABG HCO3 ABG O2 Saturation ABG Base Excess ABG Hemoglobin ABG Oxyhemoglobin VBG pH Oxyhemoglobin Sodium Potassium Chloride Carbon Dioxide BUN Creatinine Glucose POC Glucose 190 H 166 H 171 H Lactic Acid Calcium Ferritin AST Alkaline Phosphatase Magnesium Lactate Dehydrogenase Total Creatine Kinase CK-MB (CK-2) C-Reactive Protein Total Protein Albumin Troponin T HDL Cholesterol Urine WBC (Auto) Urine Creatinine Urine Total Protein Coronavirus (PCR) Crossmatch 06/24/20 06/24/20 06/24/20 04:48 05:35 11:48 WBC RBC Hgb Hct MCHC RDW Lymph % (Auto) [place] % (Auto) Eos % (Auto) Lymph # [place] # Lymph # (Auto) [place] # (Auto) Seg Neutrophils % Seg Neuts % (Manual) Lymphocytes % (Manual) Seg Neutrophils # Seg Neutrophils # Man Lymphocytes # (Manual) Monocytes % (Manual) Eosinophils % (Manual) Monocytes # (Manual) Eosinophils # (Manual) D-Dimer Heparin Anti-Xa Level ABG pH POC ABG pCO2 POC ABG pO2 ABG pO2 ABG HCO3 ABG O2 Saturation ABG Base Excess ABG Hemoglobin ABG Oxyhemoglobin VBG pH Oxyhemoglobin Sodium Potassium Chloride Carbon Dioxide BUN 75 H Creatinine 2.6 H Glucose 179 H POC Glucose 172 H 153 H Lactic Acid Calcium Ferritin AST Alkaline Phosphatase Magnesium Lactate Dehydrogenase Total Creatine Kinase CK-MB (CK-2) C-Reactive Protein Total Protein Albumin Troponin T HDL Cholesterol Urine WBC (Auto) Urine Creatinine Urine Total Protein Coronavirus (PCR) Crossmatch 06/24/20 06/24/20 06/25/20 16:38 21:52 12:00 WBC RBC Hgb Hct MCHC RDW Lymph % (Auto) [place] % (Auto) Eos % (Auto) Lymph # [place] # Lymph # (Auto) [place] # (Auto) Seg Neutrophils % Seg Neuts % (Manual) Lymphocytes % (Manual) Seg Neutrophils # Seg Neutrophils # Man Lymphocytes # (Manual) Monocytes % (Manual) Eosinophils % (Manual) Monocytes # (Manual) Eosinophils # (Manual) D-Dimer Heparin Anti-Xa Level ABG pH POC ABG pCO2 POC ABG pO2 ABG pO2 ABG HCO3 ABG O2 Saturation ABG Base Excess ABG Hemoglobin ABG Oxyhemoglobin VBG pH Oxyhemoglobin Sodium Potassium Chloride Carbon Dioxide BUN Creatinine Glucose POC Glucose 123 H 115 H 203 H Lactic Acid Calcium Ferritin AST Alkaline Phosphatase Magnesium Lactate Dehydrogenase Total Creatine Kinase CK-MB (CK-2) C-Reactive Protein Total Protein Albumin Troponin T HDL Cholesterol Urine WBC (Auto) Urine Creatinine Urine Total Protein Coronavirus (PCR) Crossmatch 06/25/20 06/25/20 06/25/20 15:43 16:37 23:02 WBC RBC Hgb Hct MCHC RDW Lymph % (Auto) [place] % (Auto) Eos % (Auto) Lymph # [place] # Lymph # (Auto) [place] # (Auto) Seg Neutrophils % Seg Neuts % (Manual) Lymphocytes % (Manual) Seg Neutrophils # Seg Neutrophils # Man Lymphocytes # (Manual) Monocytes % (Manual) Eosinophils % (Manual) Monocytes # (Manual) Eosinophils # (Manual) D-Dimer Heparin Anti-Xa Level ABG pH POC ABG pCO2 POC ABG pO2 ABG pO2 ABG HCO3 ABG O2 Saturation ABG Base Excess ABG Hemoglobin ABG Oxyhemoglobin VBG pH Oxyhemoglobin Sodium Potassium Chloride Carbon Dioxide BUN 71 H Creatinine 1.8 H Glucose 170 H POC Glucose 191 H 126 H Lactic Acid Calcium 8.2 L Ferritin AST Alkaline Phosphatase Magnesium Lactate Dehydrogenase Total Creatine Kinase CK-MB (CK-2) C-Reactive Protein Total Protein Albumin Troponin T HDL Cholesterol Urine WBC (Auto) Urine Creatinine Urine Total Protein Coronavirus (PCR) Crossmatch 06/26/20 06/26/20 06/26/20 06:34 06:34 09:27 WBC RBC 2.41 L Hgb 6.9 L Hct 21.5 L MCHC RDW 16.7 H Lymph % (Auto) 10.9 L [place] % (Auto) 9.6 H Eos % (Auto) Lymph # 0.7 L [place] # Lymph # (Auto) [place] # (Auto) Seg Neutrophils % 75.4 H Seg Neuts % (Manual) Lymphocytes % (Manual) Seg Neutrophils # Seg Neutrophils # Man Lymphocytes # (Manual) Monocytes % (Manual) Eosinophils % (Manual) Monocytes # (Manual) Eosinophils # (Manual) D-Dimer Heparin Anti-Xa Level ABG pH POC ABG pCO2 POC ABG pO2 ABG pO2 ABG HCO3 ABG O2 Saturation ABG Base Excess ABG Hemoglobin ABG Oxyhemoglobin VBG pH Oxyhemoglobin Sodium Potassium Chloride Carbon Dioxide BUN 77 H Creatinine 1.9 H Glucose 190 H POC Glucose Lactic Acid Calcium Ferritin AST Alkaline Phosphatase Magnesium Lactate Dehydrogenase Total Creatine Kinase CK-MB (CK-2) C-Reactive Protein Total Protein Albumin Troponin T HDL Cholesterol Urine WBC (Auto) Urine Creatinine Urine Total Protein Coronavirus (PCR) Crossmatch See Detail 06/26/20 06/26/20 06/26/20 12:15 16:28 17:28 WBC RBC Hgb Hct MCHC RDW Lymph % (Auto) [place] % (Auto) Eos % (Auto) Lymph # [place] # Lymph # (Auto) [place] # (Auto) Seg Neutrophils % Seg Neuts % (Manual) Lymphocytes % (Manual) Seg Neutrophils # Seg Neutrophils # Man Lymphocytes # (Manual) Monocytes % (Manual) Eosinophils % (Manual) Monocytes # (Manual) Eosinophils # (Manual) D-Dimer Heparin Anti-Xa Level ABG pH POC ABG pCO2 POC ABG pO2 ABG pO2 ABG HCO3 ABG O2 Saturation ABG Base Excess ABG Hemoglobin ABG Oxyhemoglobin VBG pH Oxyhemoglobin Sodium Potassium Chloride Carbon Dioxide BUN Creatinine Glucose POC Glucose 187 H 149 H 189 H Lactic Acid Calcium Ferritin AST Alkaline Phosphatase Magnesium Lactate Dehydrogenase Total Creatine Kinase CK-MB (CK-2) C-Reactive Protein Total Protein Albumin Troponin T HDL Cholesterol Urine WBC (Auto) Urine Creatinine Urine Total Protein Coronavirus (PCR) Crossmatch 06/26/20 06/26/20 06/26/20 18:30 18:30 18:30 WBC RBC 2.87 L Hgb 8.2 L Hct 25.9 L MCHC RDW 17.8 H Lymph % (Auto) [place] % (Auto) Eos % (Auto) Lymph # [place] # Lymph # (Auto) [place] # (Auto) Seg Neutrophils % Seg Neuts % (Manual) 83.0 H Lymphocytes % (Manual) 8.0 L Seg Neutrophils # Seg Neutrophils # Man Lymphocytes # (Manual) 0.6 L Monocytes % (Manual) Eosinophils % (Manual) Monocytes # (Manual) Eosinophils # (Manual) D-Dimer Heparin Anti-Xa Level ABG pH POC ABG pCO2 POC ABG pO2 ABG pO2 ABG HCO3 ABG O2 Saturation ABG Base Excess ABG Hemoglobin ABG Oxyhemoglobin VBG pH Oxyhemoglobin Sodium Potassium Chloride Carbon Dioxide BUN 80 H Creatinine 2.1 H Glucose 260 H POC Glucose Lactic Acid 4.30 H* Calcium 8.3 L Ferritin AST Alkaline Phosphatase Magnesium Lactate Dehydrogenase Total Creatine Kinase CK-MB (CK-2) C-Reactive Protein Total Protein Albumin Troponin T HDL Cholesterol Urine WBC (Auto) Urine Creatinine Urine Total Protein Coronavirus (PCR) Crossmatch 06/26/20 06/27/2006/27/20 18:50 01:00 04:29 WBC RBC Hgb Hct MCHC RDW Lymph % (Auto) [place] % (Auto) Eos % (Auto) Lymph # [place] # Lymph # (Auto) [place] # (Auto) Seg Neutrophils % Seg Neuts % (Manual) Lymphocytes % (Manual) Seg Neutrophils # Seg Neutrophils # Man Lymphocytes # (Manual) Monocytes % (Manual) Eosinophils % (Manual) Monocytes # (Manual) Eosinophils # (Manual) D-Dimer Heparin Anti-Xa Level ABG pH 7.296 L POC ABG pCO2 POC ABG pO2 ABG pO2 116.5 H 200.5 H ABG HCO3 28.4 H ABG O2 Saturation 99.3 H ABG Base Excess 3.7 H ABG Hemoglobin 5.6 L ABG Oxyhemoglobin VBG pH Oxyhemoglobin Sodium Potassium Chloride Carbon Dioxide BUN Creatinine Glucose POC Glucose 123 H Lactic Acid Calcium Ferritin AST Alkaline Phosphatase Magnesium Lactate Dehydrogenase Total Creatine Kinase CK-MB (CK-2) C-Reactive Protein Total Protein Albumin Troponin T HDL Cholesterol Urine WBC (Auto) Urine Creatinine Urine Total Protein Coronavirus (PCR) Crossmatch 06/27/20 06/27/20 06/27/20 05:00 05:00 05:00 WBC RBC 2.75 L Hgb 7.9 L Hct 24.3 L MCHC RDW 17.1 H Lymph % (Auto) 8.5 L [place] % (Auto) 12.6 H Eos % (Auto) Lymph # 0.7 L [place] # 1.0 H Lymph # (Auto) [place] # (Auto) Seg Neutrophils % 77.5 H Seg Neuts % (Manual) Lymphocytes % (Manual) Seg Neutrophils # Seg Neutrophils # Man Lymphocytes # (Manual) Monocytes % (Manual) Eosinophils % (Manual) Monocytes # (Manual) Eosinophils # (Manual) D-Dimer Heparin Anti-Xa Level ABG pH POC ABG pCO2 POC ABG pO2 ABG pO2 ABG HCO3 ABG O2 Saturation ABG Base Excess ABG Hemoglobin ABG Oxyhemoglobin VBG pH Oxyhemoglobin Sodium Potassium Chloride Carbon Dioxide BUN 80 H Creatinine 2.0 H Glucose 129 H POC Glucose Lactic Acid 0.60 L Calcium 7.9 L Ferritin AST Alkaline Phosphatase Magnesium Lactate Dehydrogenase Total Creatine Kinase CK-MB (CK-2) C-Reactive Protein Total Protein Albumin Troponin T HDL Cholesterol Urine WBC (Auto) Urine Creatinine Urine Total Protein Coronavirus (PCR) Crossmatch 06/27/20 06/27/20 06/27/20 05:23 13:46 17:25 WBC RBC Hgb Hct MCHC RDW Lymph % (Auto) [place] % (Auto) Eos % (Auto) Lymph # [place] # Lymph # (Auto) [place] # (Auto) Seg Neutrophils % Seg Neuts % (Manual) Lymphocytes % (Manual) Seg Neutrophils # Seg Neutrophils # Man Lymphocytes # (Manual) Monocytes % (Manual) Eosinophils % (Manual) Monocytes # (Manual) Eosinophils # (Manual) D-Dimer Heparin Anti-Xa Level ABG pH POC ABG pCO2 POC ABG pO2 ABG pO2 ABG HCO3 ABG O2 Saturation ABG Base Excess ABG Hemoglobin ABG Oxyhemoglobin VBG pH Oxyhemoglobin Sodium Potassium Chloride Carbon Dioxide BUN Creatinine Glucose POC Glucose 109 H 158 H 162 H Lactic Acid Calcium Ferritin AST Alkaline Phosphatase Magnesium Lactate Dehydrogenase Total Creatine Kinase CK-MB (CK-2) C-Reactive Protein Total Protein Albumin Troponin T HDL Cholesterol Urine WBC (Auto) Urine Creatinine Urine Total Protein Coronavirus (PCR) Crossmatch 06/27/20 06/27/20 06/28/20 18:43 23:46 04:05 WBC RBC Hgb 7.7 L Hct 22.1 L MCHC RDW Lymph % (Auto) [place] % (Auto) Eos % (Auto) Lymph # [place] # Lymph # (Auto) [place] # (Auto) Seg Neutrophils % Seg Neuts % (Manual) Lymphocytes % (Manual) Seg Neutrophils # Seg Neutrophils # Man Lymphocytes # (Manual) Monocytes % (Manual) Eosinophils % (Manual) Monocytes # (Manual) Eosinophils # (Manual) D-Dimer Heparin Anti-Xa Level ABG pH POC ABG pCO2 POC ABG pO2 ABG pO2 102.7 H ABG HCO3 28.7 H ABG O2 Saturation ABG Base Excess 3.7 H ABG Hemoglobin ABG Oxyhemoglobin VBG pH Oxyhemoglobin Sodium Potassium Chloride Carbon Dioxide BUN Creatinine Glucose POC Glucose 142 H Lactic Acid Calcium Ferritin AST Alkaline Phosphatase Magnesium Lactate Dehydrogenase Total Creatine Kinase CK-MB (CK-2) C-Reactive Protein Total Protein Albumin Troponin T HDL Cholesterol Urine WBC (Auto) Urine Creatinine Urine Total Protein Coronavirus (PCR) Crossmatch 06/28/20 06/28/20 06/28/20 09:47 09:47 12:02 WBC RBC 2.53 L Hgb 7.4 L Hct 22.2 L MCHC RDW 16.8 H Lymph % (Auto) [place] % (Auto) 13.5 H Eos % (Auto) Lymph # 1.1 L [place] # 1.0 H Lymph # (Auto) [place] # (Auto) Seg Neutrophils % Seg Neuts % (Manual) Lymphocytes % (Manual) Seg Neutrophils # Seg Neutrophils # Man Lymphocytes # (Manual) Monocytes % (Manual) Eosinophils % (Manual) Monocytes # (Manual) Eosinophils # (Manual) D-Dimer Heparin Anti-Xa Level ABG pH POC ABG pCO2 POC ABG pO2 ABG pO2 ABG HCO3 ABG O2 Saturation ABG Base Excess ABG Hemoglobin ABG Oxyhemoglobin VBG pH Oxyhemoglobin Sodium Potassium Chloride Carbon Dioxide BUN 80 H Creatinine 1.5 H Glucose 139 H POC Glucose 169 H Lactic Acid Calcium 7.9 L Ferritin AST Alkaline Phosphatase Magnesium Lactate Dehydrogenase Total Creatine Kinase CK-MB (CK-2) C-Reactive Protein Total Protein 5.0 L Albumin 2.1 L Troponin T HDL Cholesterol Urine WBC (Auto) Urine Creatinine Urine Total Protein Coronavirus (PCR) Crossmatch 06/28/20 06/28/20 06/28/20 12:30 12:30 17:24 WBC RBC 2.38 L Hgb 7.3 L Hct 20.9 L MCHC 35 H RDW 16.7 H Lymph % (Auto) [place] % (Auto) Eos % (Auto) Lymph # [place] # Lymph # (Auto) [place] # (Auto) Seg Neutrophils % Seg Neuts % (Manual) Lymphocytes % (Manual) Seg Neutrophils # Seg Neutrophils # Man Lymphocytes # (Manual) Monocytes % (Manual) Eosinophils % (Manual) Monocytes # (Manual) Eosinophils # (Manual) D-Dimer Heparin Anti-Xa Level ABG pH POC ABG pCO2 POC ABG pO2 ABG pO2 ABG HCO3 ABG O2 Saturation ABG Base Excess ABG Hemoglobin ABG Oxyhemoglobin VBG pH Oxyhemoglobin Sodium Potassium Chloride Carbon Dioxide BUN 74 H Creatinine 1.5 H Glucose 143 H POC Glucose 173 H Lactic Acid Calcium 7.5 L Ferritin AST Alkaline Phosphatase Magnesium Lactate Dehydrogenase Total Creatine Kinase CK-MB (CK-2) C-Reactive Protein Total Protein Albumin Troponin T HDL Cholesterol Urine WBC (Auto) Urine Creatinine Urine Total Protein Coronavirus (PCR) Crossmatch 06/29/20 06/29/20 06/29/20 00:02 03:54 04:38 WBC RBC 2.55 L Hgb 7.3 L Hct 22.4 L MCHC RDW 16.4 H Lymph % (Auto) 13.3 L [place] % (Auto) 12.5 H Eos % (Auto) Lymph # 1.1 L [place] # 1.0 H Lymph # (Auto) [place] # (Auto) Seg Neutrophils % Seg Neuts % (Manual) Lymphocytes % (Manual) Seg Neutrophils # Seg Neutrophils # Man Lymphocytes # (Manual) Monocytes % (Manual) Eosinophils % (Manual) Monocytes # (Manual) Eosinophils # (Manual) D-Dimer Heparin Anti-Xa Level ABG pH POC ABG pCO2 POC ABG pO2 ABG pO2 ABG HCO3 26.9 H ABG O2 Saturation ABG Base Excess ABG Hemoglobin 6.9 L ABG Oxyhemoglobin VBG pH Oxyhemoglobin Sodium Potassium Chloride Carbon Dioxide BUN Creatinine Glucose POC Glucose 142 H Lactic Acid Calcium Ferritin AST Alkaline Phosphatase Magnesium Lactate Dehydrogenase Total Creatine Kinase CK-MB (CK-2) C-Reactive Protein Total Protein Albumin Troponin T HDL Cholesterol Urine WBC (Auto) Urine Creatinine Urine Total Protein Coronavirus (PCR) Crossmatch 06/29/20 06/29/20 06/29/20 04:38 05:38 12:25 WBC RBC Hgb Hct MCHC RDW Lymph % (Auto) [place] % (Auto) Eos % (Auto) Lymph # [place] # Lymph # (Auto) [place] # (Auto) Seg Neutrophils % Seg Neuts % (Manual) Lymphocytes % (Manual) Seg Neutrophils # Seg Neutrophils # Man Lymphocytes # (Manual) Monocytes % (Manual) Eosinophils % (Manual) Monocytes # (Manual) Eosinophils # (Manual) D-Dimer Heparin Anti-Xa Level ABG pH POC ABG pCO2 POC ABG pO2 ABG pO2 ABG HCO3 ABG O2 Saturation ABG Base Excess ABG Hemoglobin ABG Oxyhemoglobin VBG pH Oxyhemoglobin Sodium Potassium Chloride 107.8 H Carbon Dioxide BUN 72 H Creatinine 1.4 H Glucose 127 H POC Glucose 122 H 138 H Lactic Acid Calcium 7.4 L Ferritin AST Alkaline Phosphatase Magnesium Lactate Dehydrogenase Total Creatine Kinase CK-MB (CK-2) C-Reactive Protein Total Protein Albumin Troponin T HDL Cholesterol Urine WBC (Auto) Urine Creatinine Urine Total Protein Coronavirus (PCR) Crossmatch 06/29/20 06/29/20 06/29/20 14:45 14:45 14:45 WBC RBC Hgb Hct MCHC RDW Lymph % (Auto) [place] % (Auto) Eos % (Auto) Lymph # [place] # Lymph # (Auto) [place] # (Auto) Seg Neutrophils % Seg Neuts % (Manual) Lymphocytes % (Manual) Seg Neutrophils # Seg Neutrophils # Man Lymphocytes # (Manual) Monocytes % (Manual) Eosinophils % (Manual) Monocytes # (Manual) Eosinophils # (Manual) D-Dimer 2310.15 H Heparin Anti-Xa Level ABG pH POC ABG pCO2 POC ABG pO2 ABG pO2 ABG HCO3 ABG O2 Saturation ABG Base Excess ABG Hemoglobin ABG Oxyhemoglobin VBG pH Oxyhemoglobin Sodium Potassium Chloride Carbon Dioxide BUN Creatinine Glucose POC Glucose Lactic Acid Calcium Ferritin 223.6 H AST Alkaline Phosphatase Magnesium Lactate Dehydrogenase 367 H Total Creatine Kinase CK-MB (CK-2) C-Reactive Protein 3.60 H Total Protein Albumin Troponin T HDL Cholesterol Urine WBC (Auto) Urine Creatinine Urine Total Protein Coronavirus (PCR) Crossmatch 06/29/20 06/29/20 06/29/20 18:27 23:35 Unknown WBC RBC Hgb Hct MCHC RDW Lymph % (Auto) [place] % (Auto) Eos % (Auto) Lymph # [place] # Lymph # (Auto) [place] # (Auto) Seg Neutrophils % Seg Neuts % (Manual) Lymphocytes % (Manual) Seg Neutrophils # Seg Neutrophils # Man Lymphocytes # (Manual) Monocytes % (Manual) Eosinophils % (Manual) Monocytes # (Manual) Eosinophils # (Manual) D-Dimer Heparin Anti-Xa Level ABG pH POC ABG pCO2 POC ABG pO2 ABG pO2 ABG HCO3 ABG O2 Saturation ABG Base Excess ABG Hemoglobin ABG Oxyhemoglobin VBG pH Oxyhemoglobin Sodium Potassium Chloride Carbon Dioxide BUN Creatinine Glucose POC Glucose 112 H 140 H Lactic Acid Calcium Ferritin AST Alkaline Phosphatase Magnesium Lactate Dehydrogenase Total Creatine Kinase CK-MB (CK-2) C-Reactive Protein Total Protein Albumin Troponin T HDL Cholesterol Urine WBC (Auto) Urine Creatinine Urine Total Protein Coronavirus (PCR) Positive A Crossmatch 06/30/20 06/30/20 06/30/20 04:10 04:10 06:09 WBC RBC 2.44 L Hgb 7.1 L Hct 21.5 L MCHC RDW 16.6 H Lymph % (Auto) 11.0 L [place] % (Auto) 10.8 H Eos % (Auto) Lymph # 0.9 L [place] # 0.9 H Lymph # (Auto) [place] # (Auto) Seg Neutrophils % 73.7 H Seg Neuts % (Manual) Lymphocytes % (Manual) Seg Neutrophils # Seg Neutrophils # Man Lymphocytes # (Manual) Monocytes % (Manual) Eosinophils % (Manual) Monocytes # (Manual) Eosinophils # (Manual) D-Dimer Heparin Anti-Xa Level ABG pH POC ABG pCO2 POC ABG pO2 ABG pO2 ABG HCO3 ABG O2 Saturation ABG Base Excess ABG Hemoglobin ABG Oxyhemoglobin VBG pH Oxyhemoglobin Sodium Potassium Chloride 109.1 H Carbon Dioxide BUN 74 H Creatinine 1.3 H Glucose 191 H POC Glucose 187 H Lactic Acid Calcium 7.8 L Ferritin AST Alkaline Phosphatase Magnesium Lactate Dehydrogenase Total Creatine Kinase CK-MB (CK-2) C-Reactive Protein Total Protein Albumin Troponin T HDL Cholesterol Urine WBC (Auto) Urine Creatinine Urine Total Protein Coronavirus (PCR) Crossmatch 06/30/20 06/30/20 06/30/20 12:04 17:43 23:41 WBC RBC Hgb Hct MCHC RDW Lymph % (Auto) [place] % (Auto) Eos % (Auto) Lymph # [place] # Lymph # (Auto) [place] # (Auto) Seg Neutrophils % Seg Neuts % (Manual) Lymphocytes % (Manual) Seg Neutrophils # Seg Neutrophils # Man Lymphocytes # (Manual) Monocytes % (Manual) Eosinophils % (Manual) Monocytes # (Manual) Eosinophils # (Manual) D-Dimer Heparin Anti-Xa Level ABG pH POC ABG pCO2 POC ABG pO2 ABG pO2 ABG HCO3 ABG O2 Saturation ABG Base Excess ABG Hemoglobin ABG Oxyhemoglobin VBG pH Oxyhemoglobin Sodium Potassium Chloride Carbon Dioxide BUN Creatinine Glucose POC Glucose 112 H 177 H 143 H Lactic Acid Calcium Ferritin AST Alkaline Phosphatase Magnesium Lactate Dehydrogenase Total Creatine Kinase CK-MB (CK-2) C-Reactive Protein Total Protein Albumin Troponin T HDL Cholesterol Urine WBC (Auto) Urine Creatinine Urine Total Protein Coronavirus (PCR) Crossmatch 07/01/20 07/01/20 07/01/20 05:02 05:52 06:01 WBC 12.6 H RBC 2.95 L Hgb 8.2 L Hct 26.0 L MCHC RDW 16.9 H Lymph % (Auto) [place] % (Auto) Eos % (Auto) Lymph # [place] # Lymph # (Auto) [place] # (Auto) Seg Neutrophils % Seg Neuts % (Manual) Lymphocytes % (Manual) Seg Neutrophils # Seg Neutrophils # Man 8.6 H Lymphocytes # (Manual) Monocytes % (Manual) Eosinophils % (Manual) 5.0 H Monocytes # (Manual) Eosinophils # (Manual) 0.6 H D-Dimer Heparin Anti-Xa Level ABG pH POC ABG pCO2 POC ABG pO2 ABG pO2 ABG HCO3 ABG O2 Saturation ABG Base Excess ABG Hemoglobin 8.2 L ABG Oxyhemoglobin VBG pH Oxyhemoglobin Sodium Potassium Chloride Carbon Dioxide BUN Creatinine Glucose POC Glucose 129 H Lactic Acid Calcium Ferritin AST Alkaline Phosphatase Magnesium Lactate Dehydrogenase Total Creatine Kinase CK-MB (CK-2) C-Reactive Protein Total Protein Albumin Troponin T HDL Cholesterol Urine WBC (Auto) Urine Creatinine Urine Total Protein Coronavirus (PCR) Crossmatch 07/01/20 07/01/20 07/01/20 06:01 06:01 06:08 WBC RBC Hgb Hct MCHC RDW Lymph % (Auto) [place] % (Auto) Eos % (Auto) Lymph # [place] # Lymph # (Auto) [place] # (Auto) Seg Neutrophils % Seg Neuts % (Manual) Lymphocytes % (Manual) Seg Neutrophils # Seg Neutrophils # Man Lymphocytes # (Manual) Monocytes % (Manual) Eosinophils % (Manual) Monocytes # (Manual) Eosinophils # (Manual) D-Dimer Heparin Anti-Xa Level ABG pH POC ABG pCO2 POC ABG pO2 ABG pO2 ABG HCO3 ABG O2 Saturation ABG Base Excess ABG Hemoglobin ABG Oxyhemoglobin VBG pH Oxyhemoglobin Sodium 147 H Potassium Chloride 108.0 H Carbon Dioxide BUN 71 H Creatinine 1.3 H Glucose 193 H POC Glucose 192 H Lactic Acid Calcium 8.1 L Ferritin AST Alkaline Phosphatase Magnesium Lactate Dehydrogenase Total Creatine Kinase 300 H CK-MB (CK-2) C-Reactive Protein Total Protein Albumin Troponin T 0.067 H HDL Cholesterol 61 H Urine WBC (Auto) Urine Creatinine Urine Total Protein Coronavirus (PCR) Crossmatch 07/01/20 07/01/20 07/02/20 12:23 17:40 00:18 WBC RBC Hgb Hct MCHC RDW Lymph % (Auto) [place] % (Auto) Eos % (Auto) Lymph # [place] # Lymph # (Auto) [place] # (Auto) Seg Neutrophils % Seg Neuts % (Manual) Lymphocytes % (Manual) Seg Neutrophils # Seg Neutrophils # Man Lymphocytes # (Manual) Monocytes % (Manual) Eosinophils % (Manual) Monocytes # (Manual) Eosinophils # (Manual) D-Dimer Heparin Anti-Xa Level ABG pH POC ABG pCO2 POC ABG pO2 ABG pO2 ABG HCO3 ABG O2 Saturation ABG Base Excess ABG Hemoglobin ABG Oxyhemoglobin VBG pH Oxyhemoglobin Sodium Potassium Chloride Carbon Dioxide BUN Creatinine Glucose POC Glucose 111 H 135 H 145 H Lactic Acid Calcium Ferritin AST Alkaline Phosphatase Magnesium Lactate Dehydrogenase Total Creatine Kinase CK-MB (CK-2) C-Reactive Protein Total Protein Albumin Troponin T HDL Cholesterol Urine WBC (Auto) Urine Creatinine Urine Total Protein Coronavirus (PCR) Crossmatch 07/02/20 07/02/20 07/02/20 04:11 04:23 05:54 WBC RBC Hgb Hct MCHC RDW Lymph % (Auto) [place] % (Auto) Eos % (Auto) Lymph # [place] # Lymph # (Auto) [place] # (Auto) Seg Neutrophils % Seg Neuts % (Manual) Lymphocytes % (Manual) Seg Neutrophils # Seg Neutrophils # Man Lymphocytes # (Manual) Monocytes % (Manual) Eosinophils % (Manual) Monocytes # (Manual) Eosinophils # (Manual) D-Dimer Heparin Anti-Xa Level ABG pH POC ABG pCO2 POC ABG pO2 ABG pO2 ABG HCO3 ABG O2 Saturation ABG Base Excess ABG Hemoglobin 5.4 L ABG Oxyhemoglobin VBG pH Oxyhemoglobin Sodium Potassium Chloride 108.6 H Carbon Dioxide BUN 72 H Creatinine Glucose 112 H POC Glucose 137 H Lactic Acid Calcium 7.8 L Ferritin AST Alkaline Phosphatase Magnesium Lactate Dehydrogenase Total Creatine Kinase CK-MB (CK-2) C-Reactive Protein Total Protein Albumin Troponin T HDL Cholesterol Urine WBC (Auto) Urine Creatinine Urine Total Protein Coronavirus (PCR) Crossmatch 07/02/20 07/02/20 07/02/20 11:38 18:04 23:59 WBC RBC Hgb Hct MCHC RDW Lymph % (Auto) [place] % (Auto) Eos % (Auto) Lymph # [place] # Lymph # (Auto) [place] # (Auto) Seg Neutrophils % Seg Neuts % (Manual) Lymphocytes % (Manual) Seg Neutrophils # Seg Neutrophils # Man Lymphocytes # (Manual) Monocytes % (Manual) Eosinophils % (Manual) Monocytes # (Manual) Eosinophils # (Manual) D-Dimer Heparin Anti-Xa Level ABG pH POC ABG pCO2 POC ABG pO2 ABG pO2 ABG HCO3 ABG O2 Saturation ABG Base Excess ABG Hemoglobin ABG Oxyhemoglobin VBG pH Oxyhemoglobin Sodium Potassium Chloride Carbon Dioxide BUN Creatinine Glucose POC Glucose 128 H 135 H 156 H Lactic Acid Calcium Ferritin AST Alkaline Phosphatase Magnesium Lactate Dehydrogenase Total Creatine Kinase CK-MB (CK-2) C-Reactive Protein Total Protein Albumin Troponin T HDL Cholesterol Urine WBC (Auto) Urine Creatinine Urine Total Protein Coronavirus (PCR) Crossmatch 07/03/20 07/03/20 07/03/20 03:49 06:00 11:31 WBC RBC Hgb Hct MCHC RDW Lymph % (Auto) [place] % (Auto) Eos % (Auto) Lymph # [place] # Lymph # (Auto) [place] # (Auto) Seg Neutrophils % Seg Neuts % (Manual) Lymphocytes % (Manual) Seg Neutrophils # Seg Neutrophils # Man Lymphocytes # (Manual) Monocytes % (Manual) Eosinophils % (Manual) Monocytes # (Manual) Eosinophils # (Manual) D-Dimer Heparin Anti-Xa Level ABG pH POC ABG pCO2 POC ABG pO2 ABG pO2 121.0 H ABG HCO3 ABG O2 Saturation ABG Base Excess ABG Hemoglobin 8.5 L ABG Oxyhemoglobin VBG pH Oxyhemoglobin Sodium Potassium Chloride Carbon Dioxide BUN Creatinine Glucose POC Glucose 135 H 141 H Lactic Acid Calcium Ferritin AST Alkaline Phosphatase Magnesium Lactate Dehydrogenase Total Creatine Kinase CK-MB (CK-2) C-Reactive Protein Total Protein Albumin Troponin T HDL Cholesterol Urine WBC (Auto) Urine Creatinine Urine Total Protein Coronavirus (PCR) Crossmatch 07/03/20 07/03/20 07/04/20 16:07 17:40 05:49 WBC RBC Hgb Hct MCHC RDW Lymph % (Auto) [place] % (Auto) Eos % (Auto) Lymph # [place] # Lymph # (Auto) [place] # (Auto) Seg Neutrophils % Seg Neuts % (Manual) Lymphocytes % (Manual) Seg Neutrophils # Seg Neutrophils # Man Lymphocytes # (Manual) Monocytes % (Manual) Eosinophils % (Manual) Monocytes # (Manual) Eosinophils # (Manual) D-Dimer Heparin Anti-Xa Level ABG pH POC ABG pCO2 POC ABG pO2 ABG pO2 126.9 H ABG HCO3 ABG O2 Saturation ABG Base Excess ABG Hemoglobin 8.1 L ABG Oxyhemoglobin VBG pH Oxyhemoglobin Sodium Potassium Chloride Carbon Dioxide BUN Creatinine Glucose POC Glucose 120 H 128 H Lactic Acid Calcium Ferritin AST Alkaline Phosphatase Magnesium Lactate Dehydrogenase Total Creatine Kinase CK-MB (CK-2) C-Reactive Protein Total Protein Albumin Troponin T HDL Cholesterol Urine WBC (Auto) Urine Creatinine Urine Total Protein Coronavirus (PCR) Crossmatch 07/04/20 07/04/20 07/05/20 11:54 18:00 00:07 WBC RBC Hgb Hct MCHC RDW Lymph % (Auto) [place] % (Auto) Eos % (Auto) Lymph # [place] # Lymph # (Auto) [place] # (Auto) Seg Neutrophils % Seg Neuts % (Manual) Lymphocytes % (Manual) Seg Neutrophils # Seg Neutrophils # Man Lymphocytes # (Manual) Monocytes % (Manual) Eosinophils % (Manual) Monocytes # (Manual) Eosinophils # (Manual) D-Dimer Heparin Anti-Xa Level ABG pH POC ABG pCO2 POC ABG pO2 ABG pO2 ABG HCO3 ABG O2 Saturation ABG Base Excess ABG Hemoglobin ABG Oxyhemoglobin VBG pH Oxyhemoglobin Sodium Potassium Chloride Carbon Dioxide BUN Creatinine Glucose POC Glucose 168 H 133 H 121 H Lactic Acid Calcium Ferritin AST Alkaline Phosphatase Magnesium Lactate Dehydrogenase Total Creatine Kinase CK-MB (CK-2) C-Reactive Protein Total Protein Albumin Troponin T HDL Cholesterol Urine WBC (Auto) Urine Creatinine Urine Total Protein Coronavirus (PCR) Crossmatch 07/05/20 07/05/20 07/05/20 01:12 02:30 12:09 WBC RBC 2.35 L Hgb 6.9 L Hct 21.1 L MCHC RDW 16.8 H Lymph % (Auto) [place] % (Auto) Eos % (Auto) Lymph # [place] # Lymph # (Auto) [place] # (Auto) Seg Neutrophils % Seg Neuts % (Manual) 74.0 H Lymphocytes % (Manual) 12.0 L Seg Neutrophils # Seg Neutrophils # Man 8.0 H Lymphocytes # (Manual) Monocytes % (Manual) 9.0 H Eosinophils % (Manual) Monocytes # (Manual) 1.0 H Eosinophils # (Manual) D-Dimer Heparin Anti-Xa Level ABG pH POC ABG pCO2 POC ABG pO2 ABG pO2 ABG HCO3 ABG O2 Saturation ABG Base Excess ABG Hemoglobin ABG Oxyhemoglobin VBG pH Oxyhemoglobin Sodium Potassium Chloride Carbon Dioxide BUN Creatinine Glucose POC Glucose 132 H Lactic Acid Calcium Ferritin AST Alkaline Phosphatase Magnesium Lactate Dehydrogenase Total Creatine Kinase CK-MB (CK-2) C-Reactive Protein Total Protein Albumin Troponin T HDL Cholesterol Urine WBC (Auto) Urine Creatinine Urine Total Protein Coronavirus (PCR) Crossmatch See Detail 07/05/20 07/05/20 07/05/20 13:05 18:04 23:13 WBC RBC 2.57 L Hgb 7.7 L Hct 23.0 L MCHC RDW 16.9 H Lymph % (Auto) [place] % (Auto) Eos % (Auto) Lymph # [place] # Lymph # (Auto) [place] # (Auto) Seg Neutrophils % Seg Neuts % (Manual) Lymphocytes % (Manual) Seg Neutrophils # Seg Neutrophils # Man Lymphocytes # (Manual) Monocytes % (Manual) Eosinophils % (Manual) Monocytes # (Manual) Eosinophils # (Manual) D-Dimer Heparin Anti-Xa Level ABG pH 7.32 L POC ABG pCO2 POC ABG pO2 ABG pO2 78.3 L ABG HCO3 ABG O2 Saturation ABG Base Excess -2.6 L ABG Hemoglobin 7.3 L ABG Oxyhemoglobin VBG pH Oxyhemoglobin Sodium Potassium Chloride Carbon Dioxide BUN Creatinine Glucose POC Glucose 160 H Lactic Acid Calcium Ferritin AST Alkaline Phosphatase Magnesium Lactate Dehydrogenase Total Creatine Kinase CK-MB (CK-2) C-Reactive Protein Total Protein Albumin Troponin T HDL Cholesterol Urine WBC (Auto) Urine Creatinine Urine Total Protein Coronavirus (PCR) Crossmatch 07/05/20 07/05/20 07/06/20 23:13 23:43 13:20 WBC RBC Hgb Hct MCHC RDW Lymph % (Auto) [place] % (Auto) Eos % (Auto) Lymph # [place] # Lymph # (Auto) [place] # (Auto) Seg Neutrophils % Seg Neuts % (Manual) Lymphocytes % (Manual) Seg Neutrophils # Seg Neutrophils # Man Lymphocytes # (Manual) Monocytes % (Manual) Eosinophils % (Manual) Monocytes # (Manual) Eosinophils # (Manual) D-Dimer Heparin Anti-Xa Level ABG pH POC ABG pCO2 POC ABG pO2 ABG pO2 ABG HCO3 ABG O2 Saturation ABG Base Excess ABG Hemoglobin ABG Oxyhemoglobin VBG pH Oxyhemoglobin Sodium Potassium Chloride Carbon Dioxide 20 L BUN 80 H Creatinine 2.4 H D Glucose 124 H POC Glucose 121 H Lactic Acid Calcium 7.6 L Ferritin AST Alkaline Phosphatase Magnesium Lactate Dehydrogenase Total Creatine Kinase CK-MB (CK-2) C-Reactive Protein Total Protein Albumin Troponin T HDL Cholesterol Urine WBC (Auto) Urine Creatinine 33.3 H Urine Total Protein Coronavirus (PCR) Crossmatch 07/06/20 07/06/20 07/07/20 14:48 17:28 00:12 WBC RBC Hgb Hct MCHC RDW Lymph % (Auto) [place] % (Auto) Eos % (Auto) Lymph # [place] # Lymph # (Auto) [place] # (Auto) Seg Neutrophils % Seg Neuts % (Manual) Lymphocytes % (Manual) Seg Neutrophils # Seg Neutrophils # Man Lymphocytes # (Manual) Monocytes % (Manual) Eosinophils % (Manual) Monocytes # (Manual) Eosinophils # (Manual) D-Dimer Heparin Anti-Xa Level ABG pH POC ABG pCO2 POC ABG pO2 ABG pO2 ABG HCO3 ABG O2 Saturation ABG Base Excess ABG Hemoglobin ABG Oxyhemoglobin VBG pH Oxyhemoglobin Sodium 136 L Potassium 5.5 H Chloride Carbon Dioxide 19 L BUN 82 H Creatinine 2.5 H Glucose 113 H POC Glucose 133 H 154 H Lactic Acid Calcium 7.7 L Ferritin AST Alkaline Phosphatase Magnesium Lactate Dehydrogenase Total Creatine Kinase CK-MB (CK-2) C-Reactive Protein Total Protein Albumin Troponin T HDL Cholesterol Urine WBC (Auto) Urine Creatinine Urine Total Protein Coronavirus (PCR) Crossmatch 07/07/20 07/07/20 07/07/20 04:15 04:15 05:31 WBC RBC 2.28 L Hgb 6.8 L Hct 20.7 L MCHC RDW 16.8 H Lymph % (Auto) [place] % (Auto) Eos % (Auto) Lymph # [place] # Lymph # (Auto) [place] # (Auto) Seg Neutrophils % Seg Neuts % (Manual) Lymphocytes % (Manual) 13.0 L Seg Neutrophils # Seg Neutrophils # Man Lymphocytes # (Manual) 1.0 L Monocytes % (Manual) 11.0 H Eosinophils % (Manual) Monocytes # (Manual) 0.9 H Eosinophils # (Manual) D-Dimer Heparin Anti-Xa Level ABG pH POC ABG pCO2 POC ABG pO2 ABG pO2 ABG HCO3 ABG O2 Saturation ABG Base Excess ABG Hemoglobin ABG Oxyhemoglobin VBG pH Oxyhemoglobin Sodium Potassium Chloride Carbon Dioxide BUN Creatinine Glucose POC Glucose 135 H Lactic Acid Calcium Ferritin AST Alkaline Phosphatase Magnesium 2.50 H Lactate Dehydrogenase Total Creatine Kinase CK-MB (CK-2) C-Reactive Protein Total Protein Albumin Troponin T HDL Cholesterol Urine WBC (Auto) Urine Creatinine Urine Total Protein Coronavirus (PCR) Crossmatch 07/07/20 07/07/20 07/07/20 12:31 13:22 17:55 WBC RBC Hgb Hct MCHC RDW Lymph % (Auto) [place] % (Auto) Eos % (Auto) Lymph # [place] # Lymph # (Auto) [place] # (Auto) Seg Neutrophils % Seg Neuts % (Manual) Lymphocytes % (Manual) Seg Neutrophils # Seg Neutrophils # Man Lymphocytes # (Manual) Monocytes % (Manual) Eosinophils % (Manual) Monocytes # (Manual) Eosinophils # (Manual) D-Dimer Heparin Anti-Xa Level ABG pH POC ABG pCO2 POC ABG pO2 ABG pO2 ABG HCO3 ABG O2 Saturation ABG Base Excess ABG Hemoglobin ABG Oxyhemoglobin VBG pH Oxyhemoglobin Sodium Potassium 5.6 H Chloride Carbon Dioxide BUN 86 H Creatinine 2.9 H Glucose 127 H POC Glucose 131 H 136 H Lactic Acid Calcium 8.1 L Ferritin AST Alkaline Phosphatase Magnesium Lactate Dehydrogenase Total Creatine Kinase CK-MB (CK-2) C-Reactive Protein Total Protein Albumin Troponin T HDL Cholesterol Urine WBC (Auto) Urine Creatinine Urine Total Protein Coronavirus (PCR) Crossmatch 07/07/20 07/08/20 07/08/20 23:33 04:14 04:14 WBC RBC 3.28 L Hgb 9.7 L Hct 28.9 L D MCHC RDW 16.4 H Lymph % (Auto) 10.3 L [place] % (Auto) 10.0 H Eos % (Auto) Lymph # [place] # Lymph # (Auto) 1.1 L [place] # (Auto) 1.1 H Seg Neutrophils % 77.2 H Seg Neuts % (Manual) Lymphocytes % (Manual) Seg Neutrophils # 8.2 H Seg Neutrophils # Man Lymphocytes # (Manual) Monocytes % (Manual) Eosinophils % (Manual) Monocytes # (Manual) Eosinophils # (Manual) D-Dimer Heparin Anti-Xa Level ABG pH POC ABG pCO2 POC ABG pO2 ABG pO2 ABG HCO3 ABG O2 Saturation ABG Base Excess ABG Hemoglobin ABG Oxyhemoglobin VBG pH Oxyhemoglobin Sodium 136 L Potassium Chloride Carbon Dioxide BUN 84 H Creatinine 2.8 H Glucose 109 H POC Glucose 159 H Lactic Acid Calcium 8.1 L Ferritin AST Alkaline Phosphatase Magnesium 2.50 H Lactate Dehydrogenase Total Creatine Kinase CK-MB (CK-2) C-Reactive Protein Total Protein Albumin Troponin T HDL Cholesterol Urine WBC (Auto) Urine Creatinine Urine Total Protein Coronavirus (PCR) Crossmatch 07/08/20 07/08/20 07/08/20 12:10 18:10 23:50 WBC RBC Hgb Hct MCHC RDW Lymph % (Auto) [place] % (Auto) Eos % (Auto) Lymph # [place] # Lymph # (Auto) [place] # (Auto) Seg Neutrophils % Seg Neuts % (Manual) Lymphocytes % (Manual) Seg Neutrophils # Seg Neutrophils # Man Lymphocytes # (Manual) Monocytes % (Manual) Eosinophils % (Manual) Monocytes # (Manual) Eosinophils # (Manual) D-Dimer Heparin Anti-Xa Level ABG pH POC ABG pCO2 POC ABG pO2 ABG pO2 ABG HCO3 ABG O2 Saturation ABG Base Excess ABG Hemoglobin ABG Oxyhemoglobin VBG pH Oxyhemoglobin Sodium Potassium Chloride Carbon Dioxide BUN Creatinine Glucose POC Glucose 108 H 125 H 141 H Lactic Acid Calcium Ferritin AST Alkaline Phosphatase Magnesium Lactate Dehydrogenase Total Creatine Kinase CK-MB (CK-2) C-Reactive Protein Total Protein Albumin Troponin T HDL Cholesterol Urine WBC (Auto) Urine Creatinine Urine Total Protein Coronavirus (PCR) Crossmatch 07/09/20 07/09/20 07/09/20 05:39 11:57 17:56 WBC RBC Hgb Hct MCHC RDW Lymph % (Auto) [place] % (Auto) Eos % (Auto) Lymph # [place] # Lymph # (Auto) [place] # (Auto) Seg Neutrophils % Seg Neuts % (Manual) Lymphocytes % (Manual) Seg Neutrophils # Seg Neutrophils # Man Lymphocytes # (Manual) Monocytes % (Manual) Eosinophils % (Manual) Monocytes # (Manual) Eosinophils # (Manual) D-Dimer Heparin Anti-Xa Level ABG pH POC ABG pCO2 POC ABG pO2 ABG pO2 ABG HCO3 ABG O2 Saturation ABG Base Excess ABG Hemoglobin ABG Oxyhemoglobin VBG pH Oxyhemoglobin Sodium Potassium Chloride Carbon Dioxide BUN Creatinine Glucose POC Glucose 121 H 123 H 119 H Lactic Acid Calcium Ferritin AST Alkaline Phosphatase Magnesium Lactate Dehydrogenase Total Creatine Kinase CK-MB (CK-2) C-Reactive Protein Total Protein Albumin Troponin T HDL Cholesterol Urine WBC (Auto) Urine Creatinine Urine Total Protein Coronavirus (PCR) Crossmatch 07/10/20 07/10/20 07/10/20 00:29 05:50 10:41 WBC RBC 3.11 L Hgb 9.2 L Hct 27.6 L MCHC RDW 16.6 H Lymph % (Auto) [place] % (Auto) Eos % (Auto) Lymph # [place] # Lymph # (Auto) [place] # (Auto) Seg Neutrophils % Seg Neuts % (Manual) 78.0 H Lymphocytes % (Manual) 11.0 L Seg Neutrophils # Seg Neutrophils # Man Lymphocytes # (Manual) 1.0 L Monocytes % (Manual) Eosinophils % (Manual) Monocytes # (Manual) Eosinophils # (Manual) D-Dimer Heparin Anti-Xa Level ABG pH POC ABG pCO2 POC ABG pO2 ABG pO2 ABG HCO3 ABG O2 Saturation ABG Base Excess ABG Hemoglobin ABG Oxyhemoglobin VBG pH Oxyhemoglobin Sodium Potassium Chloride Carbon Dioxide BUN Creatinine Glucose POC Glucose 122 H 124 H Lactic Acid Calcium Ferritin AST Alkaline Phosphatase Magnesium Lactate Dehydrogenase Total Creatine Kinase CK-MB (CK-2) C-Reactive Protein Total Protein Albumin Troponin T HDL Cholesterol Urine WBC (Auto) Urine Creatinine Urine Total Protein Coronavirus (PCR) Crossmatch 07/10/20 07/10/20 07/10/20 10:41 12:25 18:10 WBC RBC Hgb Hct MCHC RDW Lymph % (Auto) [place] % (Auto) Eos % (Auto) Lymph # [place] # Lymph # (Auto) [place] # (Auto) Seg Neutrophils % Seg Neuts % (Manual) Lymphocytes % (Manual) Seg Neutrophils # Seg Neutrophils # Man Lymphocytes # (Manual) Monocytes % (Manual) Eosinophils % (Manual) Monocytes # (Manual) Eosinophils # (Manual) D-Dimer Heparin Anti-Xa Level ABG pH POC ABG pCO2 POC ABG pO2 ABG pO2 ABG HCO3 ABG O2 Saturation ABG Base Excess ABG Hemoglobin ABG Oxyhemoglobin VBG pH Oxyhemoglobin Sodium Potassium Chloride Carbon Dioxide BUN 85 H Creatinine 2.5 H Glucose 133 H POC Glucose 131 H 134 H Lactic Acid Calcium Ferritin AST Alkaline Phosphatase 131 H Magnesium Lactate Dehydrogenase Total Creatine Kinase CK-MB (CK-2) C-Reactive Protein Total Protein 5.2 L Albumin 1.6 L Troponin T HDL Cholesterol Urine WBC (Auto) Urine Creatinine Urine Total Protein Coronavirus (PCR) Crossmatch 07/11/20 07/11/20 07/11/20 00:28 05:57 12:14 WBC RBC Hgb Hct MCHC RDW Lymph % (Auto) [place] % (Auto) Eos % (Auto) Lymph # [place] # Lymph # (Auto) [place] # (Auto) Seg Neutrophils % Seg Neuts % (Manual) Lymphocytes % (Manual) Seg Neutrophils # Seg Neutrophils # Man Lymphocytes # (Manual) Monocytes % (Manual) Eosinophils % (Manual) Monocytes # (Manual) Eosinophils # (Manual) D-Dimer Heparin Anti-Xa Level ABG pH POC ABG pCO2 POC ABG pO2 ABG pO2 ABG HCO3 ABG O2 Saturation ABG Base Excess ABG Hemoglobin ABG Oxyhemoglobin VBG pH Oxyhemoglobin Sodium Potassium Chloride Carbon Dioxide BUN Creatinine Glucose POC Glucose 140 H 148 H 147 H Lactic Acid Calcium Ferritin AST Alkaline Phosphatase Magnesium Lactate Dehydrogenase Total Creatine Kinase CK-MB (CK-2) C-Reactive Protein Total Protein Albumin Troponin T HDL Cholesterol Urine WBC (Auto) Urine Creatinine Urine Total Protein Coronavirus (PCR) Crossmatch 07/11/20 07/11/20 07/12/20 17:28 23:49 05:14 WBC RBC 2.78 L Hgb 8.5 L Hct 25.3 L MCHC RDW 16.7 H Lymph % (Auto) [place] % (Auto) Eos % (Auto) Lymph # [place] # Lymph # (Auto) [place] # (Auto) Seg Neutrophils % Seg Neuts % (Manual) 81.0 H Lymphocytes % (Manual) 6.0 L Seg Neutrophils # Seg Neutrophils # Man Lymphocytes # (Manual) 0.6 L Monocytes % (Manual) 8.0 H Eosinophils % (Manual) Monocytes # (Manual) Eosinophils # (Manual) D-Dimer Heparin Anti-Xa Level ABG pH POC ABG pCO2 POC ABG pO2 ABG pO2 ABG HCO3 ABG O2 Saturation ABG Base Excess ABG Hemoglobin ABG Oxyhemoglobin VBG pH Oxyhemoglobin Sodium Potassium Chloride Carbon Dioxide BUN Creatinine Glucose POC Glucose 175 H 114 H Lactic Acid Calcium Ferritin AST Alkaline Phosphatase Magnesium Lactate Dehydrogenase Total Creatine Kinase CK-MB (CK-2) C-Reactive Protein Total Protein Albumin Troponin T HDL Cholesterol Urine WBC (Auto) Urine Creatinine Urine Total Protein Coronavirus (PCR) Crossmatch 07/12/20 07/12/20 07/12/20 05:14 05:44 11:32 WBC RBC Hgb Hct MCHC RDW Lymph % (Auto) [place] % (Auto) Eos % (Auto) Lymph # [place] # Lymph # (Auto) [place] # (Auto) Seg Neutrophils % Seg Neuts % (Manual) Lymphocytes % (Manual) Seg Neutrophils # Seg Neutrophils # Man Lymphocytes # (Manual) Monocytes % (Manual) Eosinophils % (Manual) Monocytes # (Manual) Eosinophils # (Manual) D-Dimer Heparin Anti-Xa Level ABG pH POC ABG pCO2 POC ABG pO2 ABG pO2 ABG HCO3 ABG O2 Saturation ABG Base Excess ABG Hemoglobin ABG Oxyhemoglobin VBG pH Oxyhemoglobin Sodium Potassium Chloride Carbon Dioxide BUN 79 H Creatinine 2.2 H Glucose 131 H POC Glucose 116 H 132 H Lactic Acid Calcium Ferritin AST Alkaline Phosphatase Magnesium Lactate Dehydrogenase Total Creatine Kinase CK-MB (CK-2) C-Reactive Protein Total Protein Albumin Troponin T HDL Cholesterol Urine WBC (Auto) Urine Creatinine Urine Total Protein Coronavirus (PCR) Crossmatch 07/12/20 07/13/20 07/13/20 17:53 00:18 04:53 WBC RBC 2.86 L Hgb 8.4 L Hct 25.7 L MCHC RDW 16.8 H Lymph % (Auto) [place] % (Auto) Eos % (Auto) Lymph # [place] # Lymph # (Auto) [place] # (Auto) Seg Neutrophils % Seg Neuts % (Manual) 84.0 H Lymphocytes % (Manual) 7.0 L Seg Neutrophils # Seg Neutrophils # Man Lymphocytes # (Manual) 0.6 L Monocytes % (Manual) Eosinophils % (Manual) Monocytes # (Manual) Eosinophils # (Manual) D-Dimer Heparin Anti-Xa Level ABG pH POC ABG pCO2 POC ABG pO2 ABG pO2 ABG HCO3 ABG O2 Saturation ABG Base Excess ABG Hemoglobin ABG Oxyhemoglobin VBG pH Oxyhemoglobin Sodium Potassium Chloride Carbon Dioxide BUN Creatinine Glucose POC Glucose 155 H 162 H Lactic Acid Calcium Ferritin AST Alkaline Phosphatase Magnesium Lactate Dehydrogenase Total Creatine Kinase CK-MB (CK-2) C-Reactive Protein Total Protein Albumin Troponin T HDL Cholesterol Urine WBC (Auto) Urine Creatinine Urine Total Protein Coronavirus (PCR) Crossmatch 07/13/20 07/13/20 07/13/20 04:53 06:14 12:50 WBC RBC Hgb Hct MCHC RDW Lymph % (Auto) [place] % (Auto) Eos % (Auto) Lymph # [place] # Lymph # (Auto) [place] # (Auto) Seg Neutrophils % Seg Neuts % (Manual) Lymphocytes % (Manual) Seg Neutrophils # Seg Neutrophils # Man Lymphocytes # (Manual) Monocytes % (Manual) Eosinophils % (Manual) Monocytes # (Manual) Eosinophils # (Manual) D-Dimer Heparin Anti-Xa Level ABG pH POC ABG pCO2 POC ABG pO2 ABG pO2 ABG HCO3 ABG O2 Saturation ABG Base Excess ABG Hemoglobin ABG Oxyhemoglobin VBG pH Oxyhemoglobin Sodium 136 L Potassium Chloride Carbon Dioxide BUN 78 H Creatinine 2.0 H Glucose 130 H POC Glucose 141 H 146 H Lactic Acid Calcium Ferritin AST Alkaline Phosphatase Magnesium Lactate Dehydrogenase Total Creatine Kinase CK-MB (CK-2) C-Reactive Protein Total Protein Albumin Troponin T HDL Cholesterol Urine WBC (Auto) Urine Creatinine Urine Total Protein Coronavirus (PCR) Crossmatch 07/13/20 07/14/20 07/14/20 18:27 00:22 05:43 WBC RBC Hgb Hct MCHC RDW Lymph % (Auto) [place] % (Auto) Eos % (Auto) Lymph # [place] # Lymph # (Auto) [place] # (Auto) Seg Neutrophils % Seg Neuts % (Manual) Lymphocytes % (Manual) Seg Neutrophils # Seg Neutrophils # Man Lymphocytes # (Manual) Monocytes % (Manual) Eosinophils % (Manual) Monocytes # (Manual) Eosinophils # (Manual) D-Dimer Heparin Anti-Xa Level ABG pH POC ABG pCO2 POC ABG pO2 ABG pO2 ABG HCO3 ABG O2 Saturation ABG Base Excess ABG Hemoglobin ABG Oxyhemoglobin VBG pH Oxyhemoglobin Sodium Potassium Chloride Carbon Dioxide BUN Creatinine Glucose POC Glucose 149 H 157 H 169 H Lactic Acid Calcium Ferritin AST Alkaline Phosphatase Magnesium Lactate Dehydrogenase Total Creatine Kinase CK-MB (CK-2) C-Reactive Protein Total Protein Albumin Troponin T HDL Cholesterol Urine WBC (Auto) Urine Creatinine Urine Total Protein Coronavirus (PCR) Crossmatch 07/14/20 07/14/20 07/14/20 08:04 12:12 17:23 WBC RBC Hgb Hct MCHC RDW Lymph % (Auto) [place] % (Auto) Eos % (Auto) Lymph # [place] # Lymph # (Auto) [place] # (Auto) Seg Neutrophils % Seg Neuts % (Manual) Lymphocytes % (Manual) Seg Neutrophils # Seg Neutrophils # Man Lymphocytes # (Manual) Monocytes % (Manual) Eosinophils % (Manual) Monocytes # (Manual) Eosinophils # (Manual) D-Dimer Heparin Anti-Xa Level ABG pH POC ABG pCO2 POC ABG pO2 ABG pO2 ABG HCO3 ABG O2 Saturation ABG Base Excess ABG Hemoglobin ABG Oxyhemoglobin VBG pH Oxyhemoglobin Sodium Potassium Chloride Carbon Dioxide BUN Creatinine Glucose POC Glucose 185 H 138 H Lactic Acid Calcium Ferritin AST Alkaline Phosphatase Magnesium Lactate Dehydrogenase Total Creatine Kinase CK-MB (CK-2) C-Reactive Protein Total Protein Albumin Troponin T HDL Cholesterol Urine WBC (Auto) Urine Creatinine Urine Total Protein Coronavirus (PCR) Positive A Crossmatch 07/15/20 07/15/20 07/15/20 00:04 06:06 12:00 WBC RBC Hgb Hct MCHC RDW Lymph % (Auto) [place] % (Auto) Eos % (Auto) Lymph # [place] # Lymph # (Auto) [place] # (Auto) Seg Neutrophils % Seg Neuts % (Manual) Lymphocytes % (Manual) Seg Neutrophils # Seg Neutrophils # Man Lymphocytes # (Manual) Monocytes % (Manual) Eosinophils % (Manual) Monocytes # (Manual) Eosinophils # (Manual) D-Dimer Heparin Anti-Xa Level ABG pH POC ABG pCO2 POC ABG pO2 ABG pO2 ABG HCO3 ABG O2 Saturation ABG Base Excess ABG Hemoglobin ABG Oxyhemoglobin VBG pH Oxyhemoglobin Sodium Potassium Chloride Carbon Dioxide BUN Creatinine Glucose POC Glucose 121 H 140 H 137 H Lactic Acid Calcium Ferritin AST Alkaline Phosphatase Magnesium Lactate Dehydrogenase Total Creatine Kinase CK-MB (CK-2) C-Reactive Protein Total Protein Albumin Troponin T HDL Cholesterol Urine WBC (Auto) Urine Creatinine Urine Total Protein Coronavirus (PCR) Crossmatch Assessment and Plan 64 yo female with htn, dm, chf, pulm htn, presented to the ED in May w/ shortness of breath that led to cardiac arrest en route to the hospital on 05/28/2020. Hospital course is noteful for acute respiratory failure, covid infection, multifocal pneumonia, morbid obesity, acute toxic/metabolic encephalopathy, acute renal failure, bilateral pulmonary edema/effusions, and noted continued encephalopathy. The patient suffered a second cardiopulmonary arrest on 06/26/2020. She underwent two NCHCT on 05/28/2020 and 06/02/2020 which were both unremarkable for an acute process. Currently, the patient just tested positive for COVID again on 07/14/2020 and is in continued isolation. 1. Hypoxic Encephalopathy - recommend MRI Brain w/o contrast when clinically stable (discussed w/ the hospitalist). 2. Seizure - recommend EEG (extended; 1-hour EEG) for possible ictal activity that is contributing to encephalopathy and to note for any paroxysmal rhythms that portend a poor prognosis. 3. Metabolic Encephalopathy - in the setting of underlying infection and metabolic derangements. 4. Cardiac Arrest - 2 events noted which raises concern regarding the patient's cardiac status. 5. COVID-19 - in itself, may trigger seizures; treatment per primary / pulmonology teams. 6. Neurology will followup on the results of the mri and eeg studies to aid w/ prognostication. Abdirizak Suero MD Neurology
--- NOTE | 2020-07-15 12:59 | Progress Note ---
Assessment and Plan Assessment and plan: 05/28/2020 COVID-19 test positive 06/29/2020 COVID-19 test positive 07/14/2020 COVID-19 test positive --s/p cardiopulmonary arrest on admission, 06/26 and 07/01, s/p CPR per ACLS protocol, refer to code sheet --Possible anoxic brain injury, neurology consulted, check MRI brain, EEG --Acute hypoxemic respiratory failure; vent dependent intubated on admission, extubated on 06/12/20 then placed on high flow o2 patient developed another respiratory arrest on 06/26 - reintubated Patient not tolerating weaning parameters CC following, Surgery evaluated the patient for trach and PEG Awaiting COVID 19 test -- Hypertension; moderate control Increase hydralazine dose to 75 mg 3 times a day Continue amlodipine, coreg, clonidine and hydralazine --Worsening renal function; creatinine 2.4-2.5-2.9 Vasomotor nephropathy, gentle hydration Avoid nephrotoxins, monitor renal function Reconsult nephrology --Rectal bleeding; Hb dropped from 8.2 -6.9-7.7-6.8 today, Transfused 1 unit PRBC Closely monitor H&H, GI following, no plans of endoscopy --Acute blood loss anemia; Received 2 units of PRBC transfusion, Hb improved from 6.9-7.7-6.8 Patient received 2 units of PRBC in the past, transfuse 1 additional unit today Closely monitor H&H --Severe sepsis persistently positive for COVID-19 and Klebsiella pneumoniae ID following, completed treatment for COVID-19 and completed antibiotic --COVID-19 b/l PNA Completed remdesivir on 06/02 Completed dexamethasone - Last dose 06/07 ID recs appreciated. COVID 19 test positive x 3 during this admission --Superficial left cephalic vein DVT/elevated D-dimers[COVID 19] Patient initially started on heparin drip from 05/29/20 D-dimers improved [phone] Heparin drip discontinued treated with Eliquis 5 mg twice a day for 1 week[per ID] stop date 06/26/2020 -- Acute toxic metabolic encephalopathy, POA likely from sepsis and s/p cardiac arrest with possible anoxic injury -- Acute renal failure: likely ATN avoid nephrotoxins, reconsult nephrology if no improvement --Klebsiella pneumonia: ID evaluated completed second round of 5 days of cefepime on 07/04/2020 --Acute on chronic systolic heart failure Cardiology following. Ef 45% -- Coffee ground emesis -Stress ulcers Possible stress ulcers, On PPI H/H again dropped - transfuse GI evaluated --Transaminitis. Etiology likely from COVID-19. cont to monitor -- DVT prophylaxis Eliquis, SCD to bilateral lower extremities while in bed -- Advance care planning Patient is critically ill with multiple medical problems Poor prognosis, family updated and requesting full code 07/11/2020. Patient currently on mechanical ventilation AC/PRVC with rate of 12, tidal volume 450, FiO2 30% and PEEP of 6 07/12/2020. Patient placed on CPAP with pressure support of 10 and tolerating well. Continue PSB trials as tolerated. 07/13/2020. Patient currently with AC mode rate 12, tidal volume 450, FiO2 30% and PEEP of 6. Surgery has been consulted for trach and PEG placement. Recall nephrology for renal insufficiency. 07/14/20; surgery evaluated for trach and PEG , pending call with test which is is positive today COVID-19 test positive x3 since admission History Interval history: I have seen and examined the patient at the bedside this morning Isolation precautions and PPE protocols strictly observed Patient remains intubated on ventilatory support Noncommunicative Vital signs reviewed Patient's COVID-19 test for third time is positive Hospitalist Physical - Constitutional Vitals: Temp Pulse Resp BP Pulse Ox 98.5 F 76 18 160/69 97 07/15/20 08:00 07/15/20 12:22 07/15/20 12:22 07/15/20 12:22 07/15/20 12:22 General appearance: Present: mild distress, well-nourished, obese (Morbidly obese), other (Intubated on ventilatory support) - EENT Eyes: Present: PERRL. Absent: scleral icterus ENT: other (ET tube in place) - Neck Neck: Present: supple - Respiratory Respiratory effort: normal Respiratory: bilateral: diminished, rhonchi, negative: rales, wheezing - Cardiovascular Rhythm: regular Heart Sounds: Present: S1 & S2 - Extremities Extremities: no ischemia Extremity abnormal: edema - Abdominal General gastrointestinal: soft, non-tender, non-distended, normal bowel sounds - Integumentary Integumentary: Present: clear, warm - Psychiatric Psychiatric: other (Intubated on vent) - Neurologic Neurologic: other ( intubated on vent) HEART Score - HEART Score Troponin: Troponin T 0.067 ng/mL (0.00-0.029) H 07/01/20 06:01 Results - Labs CBC & Chem 7: 07/13/20 04:53 07/13/20 04:53 Labs: Laboratory Last Values WBC 8.5 K/mm3 (4.5-11.0) 07/13/20 04:53 RBC 2.86 M/mm3 (3.65-5.03) L 07/13/20 04:53 Hgb 8.4 gm/dl (10.1-14.3) L 07/13/20 04:53 Hct 25.7 % (30.3-42.9) L 07/13/20 04:53 MCV 90 fl (79-97) 07/13/20 04:53 MCH 30 pg (28-32) 07/13/20 04:53 MCHC 33 % (30-34) 07/13/20 04:53 RDW 16.8 % (13.2-15.2) H 07/13/20 04:53 Plt Count 298 K/mm3 (140-440) 07/13/20 04:53 Lymph % (Auto) 10.3 % (13.4-35.0) L 07/08/20 04:14 [place] % (Auto) 10.0 % (0.0-7.3) H 07/08/20 04:14 Eos % (Auto) 2.0 % (0.0-4.3) 07/08/20 04:14 Baso % (Auto) 0.5 % (0.0-1.8) 07/08/20 04:14 Lymph # (Auto) 1.1 K/mm3 (1.2-5.4) L 07/08/20 04:14 [place]ard # (Auto) 1.1 K/mm3 (0.0-0.8) H 07/08/20 04:14 Eos # (Auto) 0.2 K/mm3 (0.0-0.4) 07/08/20 04:14 Baso # (Auto) 0.1 K/mm3 (0.0-0.1) 07/08/20 04:14 Add Manual Diff Complete 07/13/20 04:53 Total Counted 100 07/13/20 04:53 Seg Neutrophils % 77.2 % (40.0-70.0) H 07/08/20 04:14 Seg Neuts % (Manual) 84.0 % (40.0-70.0) H 07/13/20 04:53 Band Neutrophils % 1.0 % 07/13/20 04:53 Lymphocytes % (Manual) 7.0 % (13.4-35.0) L 07/13/20 04:53 Reactive Lymphs % (Man) 0 % 07/13/20 04:53 Monocytes % (Manual) 5.0 % (0.0-7.3) 07/13/20 04:53 Eosinophils % (Manual) 1.0 % (0.0-4.3) 07/13/20 04:53 Basophils % (Manual) 0 % (0.0-1.8) 07/13/20 04:53 Metamyelocytes % 2.0 % 07/13/20 04:53 Myelocytes % 0 % 07/13/20 04:53 Promyelocytes % 0 % 07/13/20 04:53 Blast Cells % 0 % 07/13/20 04:53 Nucleated RBC % Not Reportable 07/13/20 04:53 Seg Neutrophils # 8.2 K/mm3 (1.8-7.7) H 07/08/20 04:14 Seg Neutrophils # Man 7.1 K/mm3 (1.8-7.7) 07/13/20 04:53 Band Neutrophils # 0.1 K/mm3 07/13/20 04:53 Lymphocytes # (Manual) 0.6 K/mm3 (1.2-5.4) L 07/13/20 04:53 Abs React Lymphs (Man) 0.0 K/mm3 07/13/20 04:53 Monocytes # (Manual) 0.4 K/mm3 (0.0-0.8) 07/13/20 04:53 Eosinophils # (Manual) 0.1 K/mm3 (0.0-0.4) 07/13/20 04:53 Basophils # (Manual) 0.0 K/mm3 (0.0-0.1) 07/13/20 04:53 Metamyelocytes # 0.2 K/mm3 07/13/20 04:53 Myelocytes # 0.0 K/mm3 07/13/20 04:53 Promyelocytes # 0.0 K/mm3 07/13/20 04:53 Blast Cells # 0.0 K/mm3 07/13/20 04:53 WBC Morphology Not Reportable 07/13/20 04:53 Hypersegmented Neuts Not Reportable 07/13/20 04:53 Hyposegmented Neuts Not Reportable 07/13/20 04:53 Hypogranular Neuts Not Reportable 07/13/20 04:53 Smudge Cells Not Reportable 07/13/20 04:53 Toxic Granulation Not Reportable 07/13/20 04:53 Toxic Vacuolation Not Reportable 07/13/20 04:53 Dohle Bodies Not Reportable 07/13/20 04:53 Pelger-Huet Anomaly Not Reportable 07/13/20 04:53 Sanjuanita Rods Not Reportable 07/13/20 04:53 Platelet Estimate Consistent w auto 07/13/20 04:53 Clumped Platelets Not Reportable 07/13/20 04:53 Plt Clumps, EDTA Not Reportable 07/13/20 04:53 Large Platelets Not Reportable 07/13/20 04:53 Giant Platelets Not Reportable 07/13/20 04:53 Platelet Satelliting Not Reportable 07/13/20 04:53 Plt Morphology Comment Not Reportable 07/13/20 04:53 RBC Morphology Not Reportable 07/13/20 04:53 Dimorphic RBCs Not Reportable 07/13/20 04:53 Polychromasia Not Reportable 07/13/20 04:53 Hypochromasia Not Reportable 07/13/20 04:53 Poikilocytosis Not Reportable 07/13/20 04:53 Anisocytosis 1+ 07/13/20 04:53 Microcytosis Not Reportable 07/13/20 04:53 Macrocytosis Not Reportable 07/13/20 04:53 Spherocytes Not Reportable 07/13/20 04:53 Pappenheimer Bodies Not Reportable 07/13/20 04:53 Sickle Cells Not Reportable 07/13/20 04:53 Target Cells Not Reportable 07/13/20 04:53 Tear Drop Cells Not Reportable 07/13/20 04:53 Ovalocytes Not Reportable 07/13/20 04:53 Helmet Cells Not Reportable 07/13/20 04:53 Jones-Glenn Bodies Not Reportable 07/13/20 04:53 Speonk Rings Not Reportable 07/13/20 04:53 Lyndora Cells Not Reportable 07/13/20 04:53 Bite Cells Not Reportable 07/13/20 04:53 Crenated Cell Not Reportable 07/13/20 04:53 Elliptocytes Not Reportable 07/13/20 04:53 Acanthocytes (Spur) Not Reportable 07/13/20 04:53 Rouleaux Not Reportable 07/13/20 04:53 Hemoglobin C Crystals Not Reportable 07/13/20 04:53 Schistocytes Not Reportable 07/13/20 04:53 Malaria parasites Not Reportable 07/13/20 04:53 Kev Bodies Not Reportable 07/13/20 04:53 Hem Pathologist Commnt No 07/13/20 04:53 PT 14.2 Sec. (12.2-14.9) 05/29/20 15:10 INR 1.08 (0.87-1.13) 05/29/20 15:10 APTT 27.2 Sec. (24.2-36.6) 05/29/20 15:10 D-Dimer 2310.15 ng/mlDDU (0-234) H 06/29/20 14:45 Heparin Anti-Xa Level 0.34 U.I./ml (0.3-0.7) 06/19/20 10:46 ABG pH 7.32 pH Units (7.350-7.450) L 07/05/20 13:05 POC ABG pCO2 35.8 mmHg (32.0-48.0) 07/01/20 05:02 ABG pCO2 47.0 mm Hg 07/05/20 13:05 ABG Oxyhemoglobin 92.6 (94-98) L 06/23/20 12:34 POC ABG pO2 90.8 mmHg (83-108) 07/01/20 05:02 ABG pO2 78.3 mm Hg (80.0-90.0) L 07/05/20 13:05 POC ABG HCO3 22.1 07/01/20 05:02 ABG HCO3 23.4 mmol/L (20.0-26.0) 07/05/20 13:05 ABG O2 Saturation 96.1 % (95.0-99.0) 07/05/20 13:05 ABG O2 Content 0.3 (0.0-44) 07/05/20 13:05 POC ABG Base Excess -2.3 07/01/20 05:02 ABG Base Excess -2.6 mmol/L (-2.0-3.0) L 07/05/20 13:05 ABG Hemoglobin 7.3 gm/dl (12.0-16.0) L 07/05/20 13:05 ABG Carboxyhemoglobin 1.7 % (0.0-5.0) 07/05/20 13:05 ABG Methemoglobin 0.2 % (0.0-1.5) 07/05/20 13:05 VBG pH 7.152 (7.320-7.420) L* 05/28/20 13:47 Carboxyhemoglobin 0.5 (0.5-1.5) 06/23/20 12:34 Oxyhemoglobin 97.4 % (95.0-99.0) 07/05/20 13:05 FiO2 30 % 07/05/20 13:05 Sodium 136 mmol/L (137-145) L 07/13/20 04:53 Potassium 5.0 mmol/L (3.6-5.0) 07/13/20 04:53 Chloride 102.4 mmol/L (98-107) 07/13/20 04:53 Carbon Dioxide 27 mmol/L (22-30) 07/13/20 04:53 Anion Gap 12 mmol/L 07/13/20 04:53 BUN 78 mg/dL (7-17) H 07/13/20 04:53 Creatinine 2.0 mg/dL (0.6-1.2) H 07/13/20 04:53 Estimated GFR 25 ml/min 07/13/20 04:53 BUN/Creatinine Ratio 39 % 07/13/20 04:53 Glucose 130 mg/dL (65-100) H 07/13/20 04:53 POC Glucose 137 (70-105) H 07/15/20 12:00 Lactic Acid 0.60 mmol/L (0.7-2.0) L 06/27/20 05:00 Calcium 8.7 mg/dL (8.4-10.2) 07/13/20 04:53 Ferritin 223.6 ng/mL (10.0-200.0) H 06/29/20 14:45 Magnesium 2.50 mg/dL (1.7-2.3) H 07/08/20 04:14 Lactate Dehydrogenase 367 units/L (91-180) H 06/29/20 14:45 Total Bilirubin < 0.20 mg/dL (0.1-1.2) 07/10/20 10:41 AST 25 units/L (5-40) 07/10/20 10:41 ALT 11 units/L (7-56) 07/10/20 10:41 Alkaline Phosphatase 131 units/L (35-129) H 07/10/20 10:41 C-Reactive Protein 3.60 mg/dL (0.00-1.30) H 06/29/20 14:45 Total Creatine Kinase 300 units/L (30-135) H 07/01/20 06:01 CK-MB (CK-2) 2.0 ng/mL (0.0-4.0) 07/01/20 06:01 CK-MB (CK-2) Rel Index 0.6 (0-4) 07/01/20 06:01 Troponin T 0.067 ng/mL (0.00-0.029) H 07/01/20 06:01 Total Protein 5.2 g/dL (6.3-8.2) L 07/10/20 10:41 Albumin 1.6 g/dL (3.9-5) L 07/10/20 10:41 Albumin/Globulin Ratio 0.4 % 07/10/20 10:41 Triglycerides 142 mg/dL (2-149) 07/01/20 06:01 Cholesterol 137 mg/dL (50-199) 07/01/20 06:01 LDL Cholesterol Direct 62 mg/dL (50-130) 07/01/20 06:01 HDL Cholesterol 61 mg/dL (40-59) H 07/01/20 06:01 Cholesterol/HDL Ratio 2.24 % 07/01/20 06:01 Procalcitonin 0.18 ng/mL (<0.15) 07/14/20 04:55 Urine Color Yellow (Yellow) 06/06/20 04:00 Urine Turbidity Cloudy (Clear) 06/06/20 04:00 Urine pH 5.0 (5.0-7.0) 06/06/20 04:00 Ur Specific [place] 1.012 (1.003-1.030) 06/06/20 04:00 Urine Protein 100 mg/dl mg/dL (Negative) 06/06/20 04:00 Urine Glucose (UA) 50 mg/dL (Negative) 06/06/20 04:00 Urine Ketones Neg mg/dL (Negative) 06/06/20 04:00 Urine Blood Sm (Negative) 06/06/20 04:00 Urine Nitrite Neg (Negative) 06/06/20 04:00 Urine Bilirubin Neg (Negative) 06/06/20 04:00 Urine Urobilinogen < 2.0 mg/dL (<2.0) 06/06/20 04:00 Ur Leukocyte Esterase Neg (Negative) 06/06/20 04:00 Urine WBC (Auto) 15.0 /HPF (0.0-6.0) H 06/06/20 04:00 Urine RBC (Auto) 23.0 /HPF (0.0-6.0) 06/06/20 04:00 U Epithel Cells (Auto) 8.0 /HPF (0-13.0) 06/06/20 04:00 Urine Bacteria (Auto) 2+ /HPF (Negative) 06/06/20 04:00 Amorphous Crystals 1+ 06/06/20 04:00 Hyaline Casts 16 /LPF 06/06/20 04:00 Urine Mucus 2+ /HPF 06/06/20 04:00 Urine Yeast (Budding) 2+ /HPF 06/03/20 Unknown Urine Creatinine 33.3 mg/dL (0.1-20.0) H 07/06/20 13:20 Urine Sodium 21 mmol/L 07/06/20 13:20 Urine Total Protein 196 mg/dL (5-11.8) H 06/06/20 04:00 Nasal Screen MRSA (PCR) Negative (Negative) 06/29/20 08:30 Coronavirus (PCR) Positive (Negative) A 07/14/20 08:04 Blood Type A POSITIVE 07/05/20 02:30 Antibody Screen Negative 07/05/20 02:30 Crossmatch See Detail 07/05/20 02:30 - Diagnostic Impressions Diagnostic Impressions: Echocardiogram Limited Views 05/29/20 13:52 Transthoracic Echocardiogram Indication: Pulm Embolus BP: 169/76 HR: 85 Conclusions *Limited study for RV size post cardiopulmonar arrest. *RV is only slightly dilated, no significant difference from prior echo 05/13/2020. *Global left ventricular systolic function is at the lower limits of normal. *The estimated ejection fraction is 45-50%. *Mild to moderate concentric left ventricular hypertrophy is observed. *The left and right atria are both mild to moderately dilated. Findings Left Ventricle: The left ventricular chamber size is mildly dilated. Mild to moderate concentric left ventricular hypertrophy is observed. Global left ventricular systolic function is at the lower limits of normal. The estimated ejection fraction is 45-50%. Left Atrium: The left atrium is mild to moderately dilated. Right Ventricle: The right ventricle is slightly dilated. Right Atrium: The right atrium is mild to moderately dilated. Aortic Valve: The aortic valve leaflets are moderately thickened. Mitral Valve: There is mitral annular calcification. The mitral valve leaflets are moderately thickened. Tricuspid Valve: The tricuspid valve leaflets are mildly thickened. Pericardium: A trivial pericardial effusion is visualized. NDUM: 05/29/20 1808 Amended Report Transthoracic Echocardiogram Indication: Pulm Embolus BP: 169/76 HR: 85 Conclusions *Limited study for RV size post cardiopulmonary arrest. *RV is only slightly dilated, no significant difference from prior echo 05/13/2020. *Global left ventricular systolic function is at the lower limits of normal. *The estimated ejection fraction is 45-50%. *Mild to moderate concentric left ventricular hypertrophy is observed. *The left and right atria are both mild to moderately dilated. Findings Left Ventricle: The left ventricular chamber size is mildly dilated. Mild to moderate concentric left ventricular hypertrophy is observed. Global left ventricular systolic function is at the lower limits of normal. The estimated ejection fraction is 45-50%. Left Atrium: The left atrium is mild to moderately dilated. Right Ventricle: The right ventricle is slightly dilated. Right Atrium: The right atrium is mild to moderately dilated. Aortic Valve: The aortic valve leaflets are moderately thickened. Mitral Valve: There is mitral annular calcification. The mitral valve leaflets are moderately thickened. Tricuspid Valve: The tricuspid valve leaflets are mildly thickened. Pericardium: A trivial pericardial effusion is visualized. Helm/IV: Voiding Method External Female Catheter IV Catheter Type [Left Wrist] INT / Saline Lock IV Catheter Type [Left Upper Mid-line arm] IV Catheter Type [Right CVL Internal Jugular] IV Catheter Type [Right Hand] INT / Saline Lock IV Catheter Type [Right Wrist] Not found on patient IV Catheter Type [Left Hand] INT / Saline Lock IV Catheter Type [Left INT / Saline Lock Antecubital] IV Catheter Type [Right Peripheral IV Forearm] IV Catheter Type [Left Leg] Intra-osseous Active Medications - Current Medications Current Medications: Generic Name Dose Route Start Last Admin Trade Name Freq PRN Reason Stop Dose Admin Acetaminophen 650 mg 06/09/20 10:57 06/29/20 21:18 Tylenol FEEDTUBE 650 mg Q6H PRN Administration Fever >101 Amlodipine Besylate 10 mg 06/02/20 11:00 07/15/20 11:34 Amlodipine PO 10 mg DAILY NELSON Administration Lipase/Protease/Amylase 1 each 05/29/20 13:39 07/07/20 10:[address] 10,500 Unit FEEDTUBE 1 each PRN PRN Administration For Clogged Feeding Tube Carvedilol 12.5 mg 06/03/20 10:00 07/15/20 11:15 Coreg PO 12.5 mg BID NELSON Administration Clonidine HCl 0.2 mg 06/23/20 22:00 07/15/20 11:36 Catapres PO 0.2 mg Q12HR NELSON Administration Glycopyrrolate 2 mg 06/09/20 14:00 07/15/20 07:47 Glycopyrrolate PO 2 mg TID NELSON Administration Heparin Sodium (Porcine) 5,000 unit 06/30/20 14:00 07/15/20 06:34 Heparin SUB-Q 5,000 unit Q8HR NELSON Administration Hydralazine HCl 100 mg 07/14/20 14:00 07/15/20 07:47 Apresoline PO 100 mg TID NELSON Administration Hydrophilic Ointment 1 applic 05/28/20 13:49 Vaseline Lip Therapy TP Q2HR PRN Dry Lips Insulin Glargine 10 units 06/08/20 22:00 07/14/20 22:45 Lantus SUB-Q 10 units QHS NELSON Administration Insulin Human Lispro 0 unit 05/29/20 18:00 07/15/20 06:09 Humalog SUB-Q Not Given Q6H [facility] Protocol Labetalol HCl 20 mg 06/03/20 09:00 07/14/20 08:44 Labetalol IV 20 mg Q4H PRN Administration HYPERTENSION Lansoprazole 30 mg 06/05/20 22:00 07/15/20 11:35 Prevacid Solutab FEEDTUBE 30 mg BID NELSON Administration Levetiracetam 500 mg 06/16/20 11:00 07/15/20 11:15 Keppra PO 500 mg BID NELSON Administration Modafinil 100 mg 07/02/20 20:00 07/14/20 09:08 Provigil PO 100 mg DAILY NELSON Administration Multi-Ingred Cream/Lotion/Oil/Oint 1 applic 05/28/20 13:49 Artificial Tears Ophth Oint OU Q4HR PRN Dry Eye(s) Ondansetron HCl 4 mg 06/02/20 09:00 06/09/20 16:48 Zofran IV 4 mg Q8H PRN Administration Nausea And Vomiting Senna 17.6 mg 06/03/20 10:00 07/15/20 11:37 Senokot FEEDTUBE Not Given BID NELSON Simple Syrup 15 ml 05/29/20 13:39 Simple Syrup FEEDTUBE PRN PRN Hypoglycemia Simple Syrup 30 ml 05/29/20 13:39 Simple Syrup FEEDTUBE PRN PRN Hypoglycemia Sodium Bicarbonate 325 mg 05/29/20 13:39 07/07/20 10:36 Sodium Bicarbonate FEEDTUBE 325 mg PRN PRN Administration For Clogged Feeding Tube Sodium Chloride 10 ml 05/28/20 22:00 07/15/20 11:37 Sodium Chloride Flush Syringe 10 Ml IV 10 ml BID NELSON Administration Sodium Chloride 10 ml 05/28/20 19:08 06/16/20 17:50 Sodium Chloride Flush Syringe 10 Ml IV 10 ml PRN PRN Administration LINE FLUSH Nutrition/Malnutrition Assess - Dietary Evaluation Nutrition/Malnutrition Findings: Nutrition Notes Start: 05/29/20 11:45 Freq: Status: Active Protocol: Document 07/09/20 11:47 [email or web address] (Rec: 07/09/20 11:53 [email or web address]) Co-Sign 07/09/20 11:47 MK Nutrition Notes Initial or Follow up Reassessment Current Diagnosis Acute Kidney Injury,Diabetes, Heart Failure,Respiratory Failure Other Pertinent Diagnosis COVID-19 (+), Pulmonary edema, dysphagia Current Diet Glucerna 1.2 at 55ml/hr Labs/Tests Na 136 BUN 84 Cr 2.8 BG 109 Mg 2.5 Pertinent Medications Reviewed Height 5 ft 6 in Weight 123 kg [place] Body Weight (kg) 59.09 BMI 43.7 Weight Status Morbidly Obese Subjective/Other Information F/U TF tolerance. Per RN, pt tolerating TF and running at goal rate. Percent of energy/protein needs met: 99%/53% Burn Absent Trauma Absent Current % PO Negligible Minimum of two criteria No physical signs of malnutrition Fluid Accumulation Mild (non-severe) #1 Nutrition Diagnosis Inadequate oral intake Diagnosis Progress(for reassessment Continues documentation) Is patient on ventilator? Yes Is Patient Ambulatory and/or Out of Bed No REE-([place]. or-confined to bed) 2172.576 Kcal/Kg value to use for calculation 13 Approximate Energy Requirements Using 1599 kcal/Kg Calculation Used for Recommendations Kcal/kg Additional Notes Protein needs up to 148g (up to 2.5g/kg IBW) Fluid needs 1ml/kcal Nutrition Intervention Change Diet Order: Change TF Nutrition Support: Nepro at 40ml/hr Flush 150ml q4h Kcal 1,728 Protein (gm) 78 Fluid (mL) 697 Goal #1 TF tolerance Goal #2 TF to meet at least 65%-70% energy and 80% protein needs Anticipated Discharge Needs: Unable to determine at this time Follow-Up By: 07/20/20 Additional Comments F/U for TF tolerance
[2020-07-15] MEDS: MODAFINIL 100 MG TAB PO SCH (13:51)
[2020-07-15] MEDS: INSULIN GLARGINE 100 UNITS/ML SUB-Q SCH (21:53)
[2020-07-16] MEDS: INSULIN LISPRO 100 UNIT/ML VIAL 3 mL SUB-Q SCH ×4 (01:55→18:03)
[2020-07-16] MEDS: HEPARIN 5,000 UNIT/1 ML VIAL SUB-Q SCH ×3 (06:53→22:56)
[2020-07-16] MEDS: hydrALAZINE 100 MG TAB PO SCH ×3 (08:49→20:51)
[2020-07-16] MEDS: GLYCOPYRROLATE 2 MG TAB PO SCH ×3 (08:49→20:50)
--- NOTE | 2020-07-16 09:24 | Progress Note ---
Assessment and Plan Assessment and plan: --s/p cardiopulmonary arrest on admission, 06/26 and 07/01, s/p CPR per ACLS protocol, refer to code sheet --Possible anoxic brain injury, neurology consulted, check MRI brain, EEG --Acute hypoxemic respiratory failure; vent dependent intubated on admission, extubated on 06/12/20 then placed on high flow o2 patient developed another respiratory arrest on 06/26 - reintubated Patient not tolerating weaning parameters CC following, Surgery evaluated the patient for trach and PEG COVID-19 test positive x3, trach and PEG pending neuro evaluation -- Hypertension; moderate control Increase hydralazine dose to 75 mg 3 times a day Continue amlodipine, coreg, clonidine and hydralazine --Worsening renal function; creatinine 2.4-2.5-2.9 Vasomotor nephropathy, gentle hydration Avoid nephrotoxins, monitor renal function Reconsult nephrology --Rectal bleeding; Hb dropped from 8.2 -6.9-7.7-6.8 today, Transfused 1 unit PRBC Closely monitor H&H, GI following, no plans of endoscopy --Acute blood loss anemia; Received 2 units of PRBC transfusion, Hb improved from 6.9-7.7-6.8 Patient received 2 units of PRBC in the past, transfuse 1 additional unit today Closely monitor H&H --Severe sepsis persistently positive for COVID-19 and Klebsiella pneumoniae ID following, completed treatment for COVID-19 and completed antibiotic --COVID-19 b/l PNA Completed remdesivir on 06/02 Completed dexamethasone - Last dose 06/07 ID recs appreciated. COVID 19 test positive x 3 during this admission --Superficial left cephalic vein DVT/elevated D-dimers[COVID 19] Patient initially started on heparin drip from 05/29/20 D-dimers improved [id number] Heparin drip discontinued treated with Eliquis 5 mg twice a day for 1 week[per ID] stop date 06/26/2020 -- Acute toxic metabolic encephalopathy, POA likely from sepsis and s/p cardiac arrest with possible anoxic injury -- Acute renal failure: likely ATN avoid nephrotoxins, reconsult nephrology if no improvement --Klebsiella pneumonia: ID evaluated completed second round of 5 days of cefepime on 07/04/2020 --Acute on chronic systolic heart failure Cardiology following. Ef 45% -- Coffee ground emesis -Stress ulcers Possible stress ulcers, On PPI H/H again dropped - transfuse GI evaluated --Transaminitis. Etiology likely from COVID-19. cont to monitor -- DVT prophylaxis Eliquis, SCD to bilateral lower extremities while in bed -- Advance care planning Patient is critically ill with multiple medical problems Poor prognosis, family updated and requesting full code The high probability of a clinically significant, sudden or life threatening det erioration of the [[employer], renal, respiratory, [employer]] system(s) required my full and direct attention, intervention and personal management. The aggregate critical care time was [31] minutes. This time is in addition to time spent performing reported procedures but includes the following: [x] Data Review and interpretation [x] Patient assessment and monitoring of vital signs [x] Documentation [x] Medication orders and management 07/11/2020. Patient currently on mechanical ventilation AC/PRVC with rate of 12, tidal volume 450, FiO2 30% and PEEP of 6 07/12/2020. Patient placed on CPAP with pressure support of 10 and tolerating well. Continue PSB trials as tolerated. 07/13/2020. Patient currently with AC mode rate 12, tidal volume 450, FiO2 30% and PEEP of 6. Surgery has been consulted for trach and PEG placement. Recall nephrology for renal insufficiency. 07/14/20; surgery evaluated for trach and PEG , pending call with test which is is positive today COVID-19 test positive x3 since admission 07/16; trach and PEG pending neuro evaluation History Interval history: I have seen and examined the patient at the bedside COVID patient, borrero PCR test positive x3 Isolation precautions, PPE protocols strictly followed Patient's chart and medications reviewed Remains intubated on ventilatory support Unable to wean Surgery planning tracheostomy Hospitalist Physical - Constitutional Vitals: Temp Pulse Resp BP Pulse Ox 98.1 F 77 22 227/99 98 07/16/20 08:00 07/16/20 08:42 07/16/20 08:42 07/16/20 08:42 07/16/20 08:42 General appearance: Present: mild distress, well-nourished, obese (Morbidly obese), other (Intubated on ventilatory support) - EENT Eyes: Present: PERRL, EOM intact - Neck Neck: Present: supple, normal ROM - Respiratory Respiratory effort: normal Respiratory: bilateral: diminished, rhonchi, negative: rales, wheezing - Cardiovascular Rhythm: regular Heart Sounds: Present: S1 & S2 - Extremities Extremities: no ischemia, No edema - Abdominal General gastrointestinal: soft, non-tender, non-distended, normal bowel sounds - Integumentary Integumentary: Present: clear, warm - Psychiatric Psychiatric: other (Intubated on vent) - Neurologic Neurologic: other (Intubated on vent) HEART Score - HEART Score Troponin: Troponin T 0.067 ng/mL (0.00-0.029) H 07/01/20 06:01 Results - Labs CBC & Chem 7: 07/13/20 04:53 07/13/20 04:53 Labs: Laboratory Last Values WBC 8.5 K/mm3 (4.5-11.0) 07/13/20 04:53 RBC 2.86 M/mm3 (3.65-5.03) L 07/13/20 04:53 Hgb 8.4 gm/dl (10.1-14.3) L 07/13/20 04:53 Hct 25.7 % (30.3-42.9) L 07/13/20 04:53 MCV 90 fl (79-97) 07/13/20 04:53 MCH 30 pg (28-32) 07/13/20 04:53 MCHC 33 % (30-34) 07/13/20 04:53 RDW 16.8 % (13.2-15.2) H 07/13/20 04:53 Plt Count 298 K/mm3 (140-440) 07/13/20 04:53 Lymph % (Auto) 10.3 % (13.4-35.0) L 07/08/20 04:14 [place] % (Auto) 10.0 % (0.0-7.3) H 07/08/20 04:14 Eos % (Auto) 2.0 % (0.0-4.3) 07/08/20 04:14 Baso % (Auto) 0.5 % (0.0-1.8) 07/08/20 04:14 Lymph # (Auto) 1.1 K/mm3 (1.2-5.4) L 07/08/20 04:14 [place] # (Auto) 1.1 K/mm3 (0.0-0.8) H 07/08/20 04:14 Eos # (Auto) 0.2 K/mm3 (0.0-0.4) 07/08/20 04:14 Baso # (Auto) 0.1 K/mm3 (0.0-0.1) 07/08/20 04:14 Add Manual Diff Complete 07/13/20 04:53 Total Counted 100 07/13/20 04:53 Seg Neutrophils % 77.2 % (40.0-70.0) H 07/08/20 04:14 Seg Neuts % (Manual) 84.0 % (40.0-70.0) H 07/13/20 04:53 Band Neutrophils % 1.0 % 07/13/20 04:53 Lymphocytes % (Manual) 7.0 % (13.4-35.0) L 07/13/20 04:53 Reactive Lymphs % (Man) 0 % 07/13/20 04:53 Monocytes % (Manual) 5.0 % (0.0-7.3) 07/13/20 04:53 Eosinophils % (Manual) 1.0 % (0.0-4.3) 07/13/20 04:53 Basophils % (Manual) 0 % (0.0-1.8) 07/13/20 04:53 Metamyelocytes % 2.0 % 07/13/20 04:53 Myelocytes % 0 % 07/13/20 04:53 Promyelocytes % 0 % 07/13/20 04:53 Blast Cells % 0 % 07/13/20 04:53 Nucleated RBC % Not Reportable 07/13/20 04:53 Seg Neutrophils # 8.2 K/mm3 (1.8-7.7) H 07/08/20 04:14 Seg Neutrophils # Man 7.1 K/mm3 (1.8-7.7) 07/13/20 04:53 Band Neutrophils # 0.1 K/mm3 07/13/20 04:53 Lymphocytes # (Manual) 0.6 K/mm3 (1.2-5.4) L 07/13/20 04:53 Abs React Lymphs (Man) 0.0 K/mm3 07/13/20 04:53 Monocytes # (Manual) 0.4 K/mm3 (0.0-0.8) 07/13/20 04:53 Eosinophils # (Manual) 0.1 K/mm3 (0.0-0.4) 07/13/20 04:53 Basophils # (Manual) 0.0 K/mm3 (0.0-0.1) 07/13/20 04:53 Metamyelocytes # 0.2 K/mm3 07/13/20 04:53 Myelocytes # 0.0 K/mm3 07/13/20 04:53 Promyelocytes # 0.0 K/mm3 07/13/20 04:53 Blast Cells # 0.0 K/mm3 07/13/20 04:53 WBC Morphology Not Reportable 07/13/20 04:53 Hypersegmented Neuts Not Reportable 07/13/20 04:53 Hyposegmented Neuts Not Reportable 07/13/20 04:53 Hypogranular Neuts Not Reportable 07/13/20 04:53 Smudge Cells Not Reportable 07/13/20 04:53 Toxic Granulation Not Reportable 07/13/20 04:53 Toxic Vacuolation Not Reportable 07/13/20 04:53 Dohle Bodies Not Reportable 07/13/20 04:53 Pelger-Huet Anomaly Not Reportable 07/13/20 04:53 Sanjuanita Rods Not Reportable 07/13/20 04:53 Platelet Estimate Consistent w auto 07/13/20 04:53 Clumped Platelets Not Reportable 07/13/20 04:53 Plt Clumps, EDTA Not Reportable 07/13/20 04:53 Large Platelets Not Reportable 07/13/20 04:53 Giant Platelets Not Reportable 07/13/20 04:53 Platelet Satelliting Not Reportable 07/13/20 04:53 Plt Morphology Comment Not Reportable 07/13/20 04:53 RBC Morphology Not Reportable 07/13/20 04:53 Dimorphic RBCs Not Reportable 07/13/20 04:53 Polychromasia Not Reportable 07/13/20 04:53 Hypochromasia Not Reportable 07/13/20 04:53 Poikilocytosis Not Reportable 07/13/20 04:53 Anisocytosis 1+ 07/13/20 04:53 Microcytosis Not Reportable 07/13/20 04:53 Macrocytosis Not Reportable 07/13/20 04:53 Spherocytes Not Reportable 07/13/20 04:53 Pappenheimer Bodies Not Reportable 07/13/20 04:53 Sickle Cells Not Reportable 07/13/20 04:53 Target Cells Not Reportable 07/13/20 04:53 Tear Drop Cells Not Reportable 07/13/20 04:53 Ovalocytes Not Reportable 07/13/20 04:53 Helmet Cells Not Reportable 07/13/20 04:53 [place] Bodies Not Reportable 07/13/20 04:53 [place] Rings Not Reportable 07/13/20 04:53 Julia Cells Not Reportable 07/13/20 04:53 Bite Cells Not Reportable 07/13/20 04:53 Crenated Cell Not Reportable 07/13/20 04:53 Elliptocytes Not Reportable 07/13/20 04:53 Acanthocytes (Spur) Not Reportable 07/13/20 04:53 Rouleaux Not Reportable 07/13/20 04:53 Hemoglobin C Crystals Not Reportable 07/13/20 04:53 Schistocytes Not Reportable 07/13/20 04:53 Malaria parasites Not Reportable 07/13/20 04:53 Kev Bodies Not Reportable 07/13/20 04:53 Hem Pathologist Commnt No 07/13/20 04:53 PT 14.2 Sec. (12.2-14.9) 05/29/20 15:10 INR 1.08 (0.87-1.13) 05/29/20 15:10 APTT 27.2 Sec. (24.2-36.6) 05/29/20 15:10 D-Dimer 2310.15 ng/mlDDU (0-234) H 06/29/20 14:45 Heparin Anti-Xa Level 0.34 U.I./ml (0.3-0.7) 06/19/20 10:46 ABG pH 7.32 pH Units (7.350-7.450) L 07/05/20 13:05 POC ABG pCO2 35.8 mmHg (32.0-48.0) 07/01/20 05:02 ABG pCO2 47.0 mm Hg 07/05/20 13:05 ABG Oxyhemoglobin 92.6 (94-98) L 06/23/20 12:34 POC ABG pO2 90.8 mmHg (83-108) 07/01/20 05:02 ABG pO2 78.3 mm Hg (80.0-90.0) L 07/05/20 13:05 POC ABG HCO3 22.1 07/01/20 05:02 ABG HCO3 23.4 mmol/L (20.0-26.0) 07/05/20 13:05 ABG O2 Saturation 96.1 % (95.0-99.0) 07/05/20 13:05 ABG O2 Content 0.3 (0.0-44) 07/05/20 13:05 POC ABG Base Excess -2.3 07/01/20 05:02 ABG Base Excess -2.6 mmol/L (-2.0-3.0) L 07/05/20 13:05 ABG Hemoglobin 7.3 gm/dl (12.0-16.0) L 07/05/20 13:05 ABG Carboxyhemoglobin 1.7 % (0.0-5.0) 07/05/20 13:05 ABG Methemoglobin 0.2 % (0.0-1.5) 07/05/20 13:05 VBG pH 7.152 (7.320-7.420) L* 05/28/20 13:47 Carboxyhemoglobin 0.5 (0.5-1.5) 06/23/20 12:34 Oxyhemoglobin 97.4 % (95.0-99.0) 07/05/20 13:05 FiO2 30 % 07/05/20 13:05 Sodium 136 mmol/L (137-145) L 07/13/20 04:53 Potassium 5.0 mmol/L (3.6-5.0) 07/13/20 04:53 Chloride 102.4 mmol/L (98-107) 07/13/20 04:53 Carbon Dioxide 27 mmol/L (22-30) 07/13/20 04:53 Anion Gap 12 mmol/L 07/13/20 04:53 BUN 78 mg/dL (7-17) H 07/13/20 04:53 Creatinine 2.0 mg/dL (0.6-1.2) H 07/13/20 04:53 Estimated GFR 25 ml/min 07/13/20 04:53 BUN/Creatinine Ratio 39 % 07/13/20 04:53 Glucose 130 mg/dL (65-100) H 07/13/20 04:53 POC Glucose 152 (70-105) H 07/16/20 05:26 Lactic Acid 0.60 mmol/L (0.7-2.0) L 06/27/20 05:00 Calcium 8.7 mg/dL (8.4-10.2) 07/13/20 04:53 Ferritin 223.6 ng/mL (10.0-200.0) H 06/29/20 14:45 Magnesium 2.50 mg/dL (1.7-2.3) H 07/08/20 04:14 Lactate Dehydrogenase 367 units/L (91-180) H 06/29/20 14:45 Total Bilirubin < 0.20 mg/dL (0.1-1.2) 07/10/20 10:41 AST 25 units/L (5-40) 07/10/20 10:41 ALT 11 units/L (7-56) 07/10/20 10:41 Alkaline Phosphatase 131 units/L (35-129) H 07/10/20 10:41 C-Reactive Protein 3.60 mg/dL (0.00-1.30) H 06/29/20 14:45 Total Creatine Kinase 300 units/L (30-135) H 07/01/20 06:01 CK-MB (CK-2) 2.0 ng/mL (0.0-4.0) 07/01/20 06:01 CK-MB (CK-2) Rel Index 0.6 (0-4) 07/01/20 06:01 Troponin T 0.067 ng/mL (0.00-0.029) H 07/01/20 06:01 Total Protein 5.2 g/dL (6.3-8.2) L 07/10/20 10:41 Albumin 1.6 g/dL (3.9-5) L 07/10/20 10:41 Albumin/Globulin Ratio 0.4 % 07/10/20 10:41 Triglycerides 142 mg/dL (2-149) 07/01/20 06:01 Cholesterol 137 mg/dL (50-199) 07/01/20 06:01 LDL Cholesterol Direct 62 mg/dL (50-130) 07/01/20 06:01 HDL Cholesterol 61 mg/dL (40-59) H 07/01/20 06:01 Cholesterol/HDL Ratio 2.24 % 07/01/20 06:01 Procalcitonin 0.18 ng/mL (<0.15) 07/14/20 04:55 Urine Color Yellow (Yellow) 06/06/20 04:00 Urine Turbidity Cloudy (Clear) 06/06/20 04:00 Urine pH 5.0 (5.0-7.0) 06/06/20 04:00 Ur Specific [place] 1.012 (1.003-1.030) 06/06/20 04:00 Urine Protein 100 mg/dl mg/dL (Negative) 06/06/20 04:00 Urine Glucose (UA) 50 mg/dL (Negative) 06/06/20 04:00 Urine Ketones Neg mg/dL (Negative) 06/06/20 04:00 Urine Blood Sm (Negative) 06/06/20 04:00 Urine Nitrite Neg (Negative) 06/06/20 04:00 Urine Bilirubin Neg (Negative) 06/06/20 04:00 Urine Urobilinogen < 2.0 mg/dL (<2.0) 06/06/20 04:00 Ur Leukocyte Esterase Neg (Negative) 06/06/20 04:00 Urine WBC (Auto) 15.0 /HPF (0.0-6.0) H 06/06/20 04:00 Urine RBC (Auto) 23.0 /HPF (0.0-6.0) 06/06/20 04:00 U Epithel Cells (Auto) 8.0 /HPF (0-13.0) 06/06/20 04:00 Urine Bacteria (Auto) 2+ /HPF (Negative) 06/06/20 04:00 Amorphous Crystals 1+ 06/06/20 04:00 Hyaline Casts 16 /LPF 06/06/20 04:00 Urine Mucus 2+ /HPF 06/06/20 04:00 Urine Yeast (Budding) 2+ /HPF 06/03/20 Unknown Urine Creatinine 33.3 mg/dL (0.1-20.0) H 07/06/20 13:20 Urine Sodium 21 mmol/L 07/06/20 13:20 Urine Total Protein 196 mg/dL (5-11.8) H 06/06/20 04:00 Nasal Screen MRSA (PCR) Negative (Negative) 09/21/20 08:30 Coronavirus (PCR) Positive (Negative) A 07/14/20 08:04 Blood Type A POSITIVE 07/05/20 02:30 Antibody Screen Negative 07/05/20 02:30 Crossmatch See Detail 07/05/20 02:30 - Diagnostic Impressions Diagnostic Impressions: Echocardiogram Limited Views 05/29/20 13:52 Transthoracic Echocardiogram Indication: Pulm Embolus BP: 169/76 HR: 85 Conclusions *Limited study for RV size post cardiopulmonar arrest. *RV is only slightly dilated, no significant difference from prior echo 05/13/2020. *Global left ventricular systolic function is at the lower limits of normal. *The estimated ejection fraction is 45-50%. *Mild to moderate concentric left ventricular hypertrophy is observed. *The left and right atria are both mild to moderately dilated. Findings Left Ventricle: The left ventricular chamber size is mildly dilated. Mild to moderate concentric left ventricular hypertrophy is observed. Global left ventricular systolic function is at the lower limits of normal. The estimated ejection fraction is 45-50%. Left Atrium: The left atrium is mild to moderately dilated. Right Ventricle: The right ventricle is slightly dilated. Right Atrium: The right atrium is mild to moderately dilated. Aortic Valve: The aortic valve leaflets are moderately thickened. Mitral Valve: There is mitral annular calcification. The mitral valve leaflets are moderately thickened. Tricuspid Valve: The tricuspid valve leaflets are mildly thickened. Pericardium: A trivial pericardial effusion is visualized. NDUM: 05/29/20 1808 Amended Report Transthoracic Echocardiogram Indication: Pulm Embolus BP: 169/76 HR: 85 Conclusions *Limited study for RV size post cardiopulmonary arrest. *RV is only slightly dilated, no significant difference from prior echo 05/13/2020. *Global left ventricular systolic function is at the lower limits of normal. *The estimated ejection fraction is 45-50%. *Mild to moderate concentric left ventricular hypertrophy is observed. *The left and right atria are both mild to moderately dilated. Findings Left Ventricle: The left ventricular chamber size is mildly dilated. Mild to moderate concentric left ventricular hypertrophy is observed. Global left ventricular systolic function is at the lower limits of normal. The estimated ejection fraction is 45-50%. Left Atrium: The left atrium is mild to moderately dilated. Right Ventricle: The right ventricle is slightly dilated. Right Atrium: The right atrium is mild to moderately dilated. Aortic Valve: The aortic valve leaflets are moderately thickened. Mitral Valve: There is mitral annular calcification. The mitral valve leaflets are moderately thickened. Tricuspid Valve: The tricuspid valve leaflets are mildly thickened. Pericardium: A trivial pericardial effusion is visualized. Helm/IV: Voiding Method External Female Catheter IV Catheter Type [Left Wrist] INT / Saline Lock IV Catheter Type [Left Upper Mid-line arm] IV Catheter Type [Right CVL Internal Jugular] IV Catheter Type [Right Hand] INT / Saline Lock IV Catheter Type [Right Wrist] Not found on patient IV Catheter Type [Left Hand] INT / Saline Lock IV Catheter Type [Left INT / Saline Lock Antecubital] IV Catheter Type [Right Peripheral IV Forearm] IV Catheter Type [Left Leg] Intra-osseous Active Medications - Current Medications Current Medications: Generic Name Dose Route Start Last Admin Trade Name Freq PRN Reason Stop Dose Admin Acetaminophen 650 mg 06/09/20 10:57 06/29/20 21:18 Tylenol FEEDTUBE 650 mg Q6H PRN Administration Fever >101 Amlodipine Besylate 10 mg 06/02/20 11:00 07/15/20 11:34 Amlodipine PO 10 mg DAILY NELSON Administration Lipase/Protease/Amylase 1 each 05/29/20 13:39 07/07/20 10:[address] 10,500 Unit FEEDTUBE 1 each PRN PRN Administration For Clogged Feeding Tube Carvedilol 12.5 mg 06/03/20 10:00 07/15/20 22:00 Coreg PO 12.5 mg BID NELSON Administration Clonidine HCl 0.2 mg 06/23/20 22:00 07/15/20 21:53 Catapres PO 0.2 mg Q12HR NELSON Administration Glycopyrrolate 2 mg 06/09/20 14:00 07/16/20 08:49 Glycopyrrolate PO 2 mg TID NELSON Administration Heparin Sodium (Porcine) 5,000 unit 06/30/20 14:00 07/16/20 06:53 Heparin SUB-Q 5,000 unit Q8HR NELSON Administration Hydralazine HCl 100 mg 07/14/20 14:00 07/16/20 08:49 Apresoline PO 100 mg TID NELSON Administration Hydrophilic Ointment 1 applic 05/28/20 13:49 Vaseline Lip Therapy TP Q2HR PRN Dry Lips Insulin Glargine 10 units 06/08/20 22:00 07/15/20 21:53 Lantus SUB-Q 10 units QHS NELSON Administration Insulin Human Lispro 0 unit 05/29/20 18:00 07/16/20 06:53 Humalog SUB-Q 3 unit Q6H NELSON Administration Protocol Labetalol HCl 20 mg 06/03/20 09:00 07/16/20 06:52 Labetalol IV 20 mg Q4H PRN Administration HYPERTENSION Lansoprazole 30 mg 06/05/20 22:00 07/15/20 21:53 Prevacid Solutab FEEDTUBE 30 mg BID NELSON Administration Levetiracetam 500 mg 06/16/20 11:00 07/15/20 21:53 Keppra PO 500 mg BID NELSON Administration Modafinil 100 mg 07/02/20 20:00 07/15/20 13:51 Provigil PO 100 mg DAILY NELSON Administration Multi-Ingred Cream/Lotion/Oil/Oint 1 applic 05/28/20 13:49 Artificial Tears Ophth Oint OU Q4HR PRN Dry Eye(s) Ondansetron HCl 4 mg 06/02/20 09:00 06/09/20 16:48 Zofran IV 4 mg Q8H PRN Administration Nausea And Vomiting Senna 17.6 mg 06/03/20 10:00 07/15/20 21:53 Senokot FEEDTUBE 17.6 mg BID NELSON Administration Simple Syrup 15 ml 05/29/20 13:39 Simple Syrup FEEDTUBE PRN PRN Hypoglycemia Simple Syrup 30 ml 05/29/20 13:39 Simple Syrup FEEDTUBE PRN PRN Hypoglycemia Sodium Bicarbonate 325 mg 05/29/20 13:39 07/07/20 10:36 Sodium Bicarbonate FEEDTUBE 325 mg PRN PRN Administration For Clogged Feeding Tube Sodium Chloride 10 ml 05/28/20 22:00 07/16/20 01:59 Sodium Chloride Flush Syringe 10 Ml IV 10 ml BID NELSON Administration Sodium Chloride 10 ml 05/28/20 19:08 06/16/20 17:50 Sodium Chloride Flush Syringe 10 Ml IV 10 ml PRN PRN Administration LINE FLUSH Nutrition/Malnutrition Assess - Dietary Evaluation Nutrition/Malnutrition Findings: Nutrition Notes Start: 05/29/20 11:45 Freq: Status: Active Protocol: Document 07/09/20 11:47 [email or web address] (Rec: 07/09/20 11:53 [email or web address]) Co-Sign 07/09/20 11:47 MK Nutrition Notes Initial or Follow up Reassessment Current Diagnosis Acute Kidney Injury,Diabetes, Heart Failure,Respiratory Failure Other Pertinent Diagnosis COVID-19 (+), Pulmonary edema, dysphagia Current Diet Glucerna 1.2 at 55ml/hr Labs/Tests Na 136 BUN 84 Cr 2.8 BG 109 Mg 2.5 Pertinent Medications Reviewed Height 5 ft 6 in Weight 123 kg [place] Body Weight (kg) 59.09 BMI 43.7 Weight Status Morbidly Obese Subjective/Other Information F/U TF tolerance. Per RN, pt tolerating TF and running at goal rate. Percent of energy/protein needs met: 99%/53% Burn Absent Trauma Absent Current % PO Negligible Minimum of two criteria No physical signs of malnutrition Fluid Accumulation Mild (non-severe) #1 Nutrition Diagnosis Inadequate oral intake Diagnosis Progress(for reassessment Continues documentation) Is patient on ventilator? Yes Is Patient Ambulatory and/or Out of Bed No REE-([place]-confined to bed) 2172.576 Kcal/Kg value to use for calculation 13 Approximate Energy Requirements Using 1599 kcal/Kg Calculation Used for Recommendations Kcal/kg Additional Notes Protein needs up to 148g (up to 2.5g/kg IBW) Fluid needs 1ml/kcal Nutrition Intervention Change Diet Order: Change TF Nutrition Support: Nepro at 40ml/hr Flush 150ml q4h Kcal 1,728 Protein (gm) 78 Fluid (mL) 697 Goal #1 TF tolerance Goal #2 TF to meet at least 65%-70% energy and 80% protein needs Anticipated Discharge Needs: Unable to determine at this time Follow-Up By: 07/20/20 Additional Comments F/U for TF tolerance
[2020-07-16] MEDS: cloNIDine 0.2 MG TAB PO SCH ×2 (10:35→18:04)
[2020-07-16] MEDS: levETIRAcetam 500 MG/5 ML ORAL LIQD PO SCH ×2 (10:35→22:55)
[2020-07-16] MEDS: carvediloL 12.5 MG TAB PO SCH ×2 (10:37→22:55)
[2020-07-16] MEDS: amLODIPine 10 MG TAB PO SCH (10:37)
[2020-07-16] MEDS: MODAFINIL 100 MG TAB PO SCH (10:38)
--- NOTE | 2020-07-16 10:39 | XRay Report ---
ABDOMEN 1 VIEW INDICATION / CLINICAL INFORMATION: check placement ng tube. COMPARISON: KUB from 07/11/2020. FINDINGS: TUBES / LINES: An NG tube terminates proximally along the gastric fundus just past the GE junction. T he side hole of the tube is located along the distal third of the esophagus 9 cm from the gastric fun dus. BOWEL GAS PATTERN: Mild gaseous distention of the stomach. No other significant abnormality. FREE AIR / EXTRALUMINAL GAS: None seen. ADDITIONAL FINDINGS: No significant additional findings. IMPRESSION: NG tube as above. Advancement of the tube by 9 cm is recommended if there are no clinical contraindic ations. Signer Name: Ezio Peace MD Signed: 07/16/2020 10:34 AM Workstation Name: [id number]
[2020-07-16] MEDS: SENNOSIDES ORAL LIQD 8.8 MG/5 ML ORAL LIQD FEEDTUBE SCH (10:41)
[2020-07-16] MEDS: LANSOPRAZOLE 30 MG SOLUTAB FEEDTUBE SCH ×2 (10:42→22:55)
--- NOTE | 2020-07-16 11:37 | Progress Note ---
Assessment and Plan Acute hypoxemic respiratory failure on MVS Coronavirus-19 infection. Bilateral pulmonary infiltrates, bilateral pneumonia plus likely element of Pulmonary edema. Bilateral pulmonary edema. Bilateral pleural effusions. History of congestive heart failure. Morbid obesity. History of pulmonary hypertension. History of hypertension. Diabetes. Obesity hypoventilation syndrome. Elevated serum inflammatory markers to include D-dimers and LDH levels. Hyperkalemia at presentation. Metabolic acidosis. Oropharyngeal dysphagia. (AMS remains rate limiting factor to safe extubation; she will need a tracheo stomy) - surgery evaluation ongoing for trach +/- PEG (await negative COVID PCR result) - continue azotemia management per nephrology rec's (slow improvement) - continue enteral nutrition at goal rate as tolerated - continue care as below otherwise while following mental status; - GI evaluation ongoing - continue Modafinil re: lethargy / somnolence - continue daytime PSV trials as tolerated - Daily SAT and SBT assessment as tolerated - continue to wean supplemental oxygen for target O2 sat's > 90% acutely - VAP bundle addressed - continue lung protective strategies - continue bronchodilators with pulmonary hygiene per RT - wean per pulmonary driven protocols otherwise - continue accuchecks resumed with glycemic control per SSI (While critically ill target blood glucose of 140-180 mg/dL; avoid hypoglycemia) - sedation prn for target RASS 0 to -1 - continue to avoid benzodiazepine's, reduce the possibility of delirium - AB's per ID rec's (following clinically of AB's at this time) - prn analgesia per CPOT score - Maintenance of sleep-wake cycle, avoid delirium - continue enteral nutritional support at goal rate as tolerated - G.I. & VTE prophylaxis with heparin & famotidine - PT/OT/ROM exercises - continue mobility protocols for pressure ulcer prophylaxis - Monitor hemodynamics closely - continue other care per attending / other consultants - discharge planning ongoing concurrently (LTAC evaluation is appropriate) .... Re-evaluate in am & prn CONDITION: CRITICAL PROGNOSIS: GUARDED CODE STATUS: FULL CODE The high probability of a clinically significant, sudden or life-threatening deterioration of the [respiratory, cardiovascular, GI & neurologic] system(s) required my full and direct attention, intervention and personal management. The aggregate critical care time was [33] minutes without overlap. Time includes spent on; [x] Data Review and interpretation [x] Patient assessment and monitoring of vital signs [x] Documentation [x] Medication orders and management Subjective Date of service: 07/16/20 Principal diagnosis: Ac hypoxemic resp failure; COVID-19; pneumonia; CHF; Pulm HTN; OHS; DM II Interval history: Patient is seen today for: Ac hypoxemic resp failure; Coronavirus-19 infection; pneumonia; Pulmonary edema; Bilateral pleural effusions; CHF; Morbid obesity; pulmonary hypertension; OHS; DM II Seen and examined at bedside; 24hour events reviewed; nursing and respiratory care staff consulted; no adverse overnight events reported to me; resting peacefully in bed; remains on MVS; tolerating daytime SBT's but remains with severe encephalopathy; tracheostomy on hold pending negative SARS COV-2 test Objective Vital Signs - 12hr 07/15/20 07/15/20 07/16/20 23:45 23:57 00:00 Temperature 99.2 F Pulse Rate 80 78 78 Pulse Rate [ 76 From Monitor] Respiratory 15 16 Rate Blood Pressure 170/67 170/67 158/65 O2 Sat by Pulse 98 98 98 Oximetry 07/16/20 07/16/20 07/16/20 00:30 01:00 01:30 Temperature Pulse Rate 78 81 79 Pulse Rate [ From Monitor] Respiratory 15 20 16 Rate Blood Pressure 165/77 168/71 175/73 O2 Sat by Pulse 98 98 98 Oximetry 07/16/20 07/16/20 07/16/20 02:00 02:30 02:36 Temperature Pulse Rate 80 77 74 Pulse Rate [ From Monitor] Respiratory 19 19 Rate Blood Pressure 179/74 174/71 174/71 O2 Sat by Pulse 98 99 Oximetry 07/16/20 07/16/20 07/16/20 03:00 03:25 03:30 Temperature Pulse Rate 76 77 78 Pulse Rate [ From Monitor] Respiratory 19 19 Rate Blood Pressure 164/66 164/66 166/70 O2 Sat by Pulse 98 98 98 Oximetry 07/16/20 07/16/20 07/16/20 03:43 04:00 04:01 Temperature 99.7 F H Pulse Rate 81 Pulse Rate [ 76 From Monitor] Respiratory 20 Rate Blood Pressure 166/70 O2 Sat by Pulse 98 97 Oximetry 07/16/20 07/16/20 07/16/20 04:31 05:00 05:30 Temperature Pulse Rate 77 74 76 Pulse Rate [ From Monitor] Respiratory 21 15 17 Rate Blood Pressure 191/77 191/74 195/70 O2 Sat by Pulse 99 98 99 Oximetry 07/16/20 07/16/20 07/16/20 06:00 06:30 06:52 Temperature Pulse Rate 79 75 77 Pulse Rate [ From Monitor] Respiratory 19 16 Rate Blood Pressure 198/77 198/66 204/66 O2 Sat by Pulse 98 98 Oximetry 07/16/20 07/16/20 07/16/20 07:00 08:00 08:42 Temperature 98.1 F Pulse Rate 75 77 Pulse Rate [ From Monitor] Respiratory 15 22 Rate Blood Pressure 191/68 227/99 O2 Sat by Pulse 99 98 Oximetry 07/16/20 07/16/20 10:35 10:37 Temperature Pulse Rate 75 74 Pulse Rate [ From Monitor] Respiratory Rate Blood Pressure 217/82 217/82 O2 Sat by Pulse Oximetry Constitutional: appears uncomfortable, other (elderly looking obese female on HFNC with mildly increased respiratory effort at rest on MVS) Eyes: non-icteric ENT: oropharynx dry, other (ETT 23-24 cm AYAN) Neck: supple, no lymphadenopathy, no JVD, other (large neck circumference) Effort: mildly labored Ascultation: Bilateral: diminished breath sounds, rhonchi Percussion: Bilateral: not dull Cardiovascular: regular rate and rhythm, other (S1,S2) Gastrointestinal: normoactive bowel sounds, soft, non-tender, non-distended Integumentary: normal Extremities: no cyanosis, pink and warm, pulses normal, no ischemia or petechiae, edema (trace) Neurologic: pupils equal and round, unable to assess, other (lethargic to obtunded) Psychiatric: other (unable to assess re: AMS) CBC and BMP: 07/13/20 04:53 07/13/20 04:53 ABG, PT/INR, D-dimer: ABG ABG pH 7.32 pH Units (7.350-7.450) L 07/05/20 13:05 POC ABG pCO2 35.8 mmHg (32.0-48.0) 07/01/20 05:02 ABG pCO2 47.0 mm Hg 07/05/20 13:05 POC ABG pO2 90.8 mmHg (83-108) 07/01/20 05:02 ABG pO2 78.3 mm Hg (80.0-90.0) L 07/05/20 13:05 POC ABG HCO3 22.1 07/01/20 05:02 ABG O2 Saturation 96.1 % (95.0-99.0) 07/05/20 13:05 PT/INR, D-dimer PT 14.2 Sec. (12.2-14.9) 05/29/20 15:10 INR 1.08 (0.87-1.13) 05/29/20 15:10 D-Dimer 2310.15 ng/mlDDU (0-234) H 06/29/20 14:45 Abnormal lab findings: Abnormal Labs 05/28/20 05/28/20 05/28/20 13:29 13:47 13:47 WBC RBC Hgb Hct MCHC RDW 15.3 H Lymph % (Auto) [place] % (Auto) Eos % (Auto) Lymph # C[place] # Lymph # (Auto) [place] # (Auto) Seg Neutrophils % Seg Neuts % (Manual) Lymphocytes % (Manual) Seg Neutrophils # Seg Neutrophils # Man Lymphocytes # (Manual) Monocytes % (Manual) Eosinophils % (Manual) Monocytes # (Manual) Eosinophils # (Manual) D-Dimer Heparin Anti-Xa Level ABG pH POC ABG pCO2 POC ABG pO2 ABG pO2 ABG HCO3 ABG O2 Saturation ABG Base Excess ABG Hemoglobin ABG Oxyhemoglobin VBG pH Oxyhemoglobin Sodium Potassium 6.6 H* Chloride 109.2 H Carbon Dioxide 17 L BUN 29 H Creatinine 1.3 H Glucose 265 H POC Glucose 248 H Lactic Acid Calcium 8.1 L Ferritin AST 63 H Alkaline Phosphatase Magnesium Lactate Dehydrogenase Total Creatine Kinase 301 H CK-MB (CK-2) 4.3 H C-Reactive Protein Total Protein 5.4 L Albumin 2.6 L Troponin T HDL Cholesterol Urine WBC (Auto) Urine Creatinine Urine Total Protein Coronavirus (PCR) Crossmatch 05/28/20 05/28/20 05/28/20 13:47 13:47 14:46 WBC RBC Hgb Hct MCHC RDW Lymph % (Auto) [place] % (Auto) Eos % (Auto) Lymph # [place] # Lymph # (Auto) [place] # (Auto) Seg Neutrophils % Seg Neuts % (Manual) Lymphocytes % (Manual) Seg Neutrophils # Seg Neutrophils # Man Lymphocytes # (Manual) Monocytes % (Manual) Eosinophils % (Manual) Monocytes # (Manual) Eosinophils # (Manual) D-Dimer Heparin Anti-Xa Level ABG pH POC ABG pCO2 POC ABG pO2 ABG pO2 ABG HCO3 ABG O2 Saturation ABG Base Excess ABG Hemoglobin ABG Oxyhemoglobin VBG pH 7.152 L* Oxyhemoglobin Sodium Potassium 7.2 H* Chloride Carbon Dioxide BUN Creatinine Glucose POC Glucose Lactic Acid 3.40 H* Calcium Ferritin AST Alkaline Phosphatase Magnesium Lactate Dehydrogenase Total Creatine Kinase CK-MB (CK-2) C-Reactive Protein Total Protein Albumin Troponin T HDL Cholesterol Urine WBC (Auto) Urine Creatinine Urine Total Protein Coronavirus (PCR) Crossmatch 05/28/20 05/28/20 05/28/20 15:33 15:33 15:51 WBC RBC Hgb Hct MCHC RDW Lymph % (Auto) [place] % (Auto) Eos % (Auto) Lymph # [place] # Lymph # (Auto) [place] # (Auto) Seg Neutrophils % Seg Neuts % (Manual) Lymphocytes % (Manual) Seg Neutrophils # Seg Neutrophils # Man Lymphocytes # (Manual) Monocytes % (Manual) Eosinophils % (Manual) Monocytes # (Manual) Eosinophils # (Manual) D-Dimer 8780.43 H Heparin Anti-Xa Level ABG pH 7.284 L POC ABG pCO2 POC ABG pO2 ABG pO2 273.0 H ABG HCO3 ABG O2 Saturation 99.4 H ABG Base Excess -6.1 L ABG Hemoglobin 17.2 H ABG Oxyhemoglobin VBG pH Oxyhemoglobin Sodium Potassium Chloride Carbon Dioxide BUN Creatinine Glucose 152 H POC Glucose Lactic Acid Calcium Ferritin AST Alkaline Phosphatase Magnesium Lactate Dehydrogenase 365 H Total Creatine Kinase CK-MB (CK-2) C-Reactive Protein Total Protein Albumin Troponin T HDL Cholesterol Urine WBC (Auto) Urine Creatinine Urine Total Protein Coronavirus (PCR) Crossmatch 05/28/20 05/28/20 05/28/20 16:30 20:41 23:20 WBC RBC Hgb Hct MCHC RDW Lymph % (Auto) [place] % (Auto) Eos % (Auto) Lymph # [place] # Lymph # (Auto) [place] # (Auto) Seg Neutrophils % Seg Neuts % (Manual) Lymphocytes % (Manual) Seg Neutrophils # Seg Neutrophils # Man Lymphocytes # (Manual) Monocytes % (Manual) Eosinophils % (Manual) Monocytes # (Manual) Eosinophils # (Manual) D-Dimer Heparin Anti-Xa Level ABG pH POC ABG pCO2 POC ABG pO2 ABG pO2 ABG HCO3 ABG O2 Saturation ABG Base Excess ABG Hemoglobin ABG Oxyhemoglobin VBG pH Oxyhemoglobin Sodium Potassium Chloride Carbon Dioxide BUN Creatinine Glucose POC Glucose 225 H 224 H Lactic Acid Calcium Ferritin AST Alkaline Phosphatase Magnesium Lactate Dehydrogenase Total Creatine Kinase CK-MB (CK-2) C-Reactive Protein Total Protein Albumin Troponin T HDL Cholesterol Urine WBC (Auto) 17.0 H Urine Creatinine Urine Total Protein Coronavirus (PCR) Crossmatch 05/28/20 05/29/20 05/29/20 Unknown 04:35 04:43 WBC RBC 3.48 L Hgb 9.8 L Hct 29.4 L MCHC RDW 16.0 H Lymph % (Auto) 7.4 L [place] % (Auto) Eos % (Auto) Lymph # 0.7 L [place] # Lymph # (Auto) [place] # (Auto) Seg Neutrophils % 89.1 H Seg Neuts % (Manual) Lymphocytes % (Manual) Seg Neutrophils # 8.1 H Seg Neutrophils # Man Lymphocytes # (Manual) Monocytes % (Manual) Eosinophils % (Manual) Monocytes # (Manual) Eosinophils # (Manual) D-Dimer Heparin Anti-Xa Level ABG pH POC ABG pCO2 POC ABG pO2 ABG pO2 ABG HCO3 19.3 L ABG O2 Saturation ABG Base Excess -4.5 L ABG Hemoglobin 9.7 L ABG Oxyhemoglobin VBG pH Oxyhemoglobin Sodium Potassium Chloride Carbon Dioxide BUN Creatinine Glucose POC Glucose Lactic Acid Calcium Ferritin AST Alkaline Phosphatase Magnesium Lactate Dehydrogenase Total Creatine Kinase CK-MB (CK-2) C-Reactive Protein Total Protein Albumin Troponin T HDL Cholesterol Urine WBC (Auto) Urine Creatinine Urine Total Protein Coronavirus (PCR) Positive A Crossmatch 05/29/20 05/29/20 05/29/20 04:43 15:10 17:17 WBC RBC Hgb 9.3 L Hct 28.7 L MCHC RDW Lymph % (Auto) [place] % (Auto) Eos % (Auto) Lymph # [place] # Lymph # (Auto) [place] # (Auto) Seg Neutrophils % Seg Neuts % (Manual) Lymphocytes % (Manual) Seg Neutrophils # Seg Neutrophils # Man Lymphocytes # (Manual) Monocytes % (Manual) Eosinophils % (Manual) Monocytes # (Manual) Eosinophils # (Manual) D-Dimer Heparin Anti-Xa Level ABG pH POC ABG pCO2 POC ABG pO2 ABG pO2 ABG HCO3 ABG O2 Saturation ABG Base Excess ABG Hemoglobin ABG Oxyhemoglobin VBG pH Oxyhemoglobin Sodium Potassium Chloride 110.2 H Carbon Dioxide 18 L BUN 32 H Creatinine 1.4 H Glucose 180 H POC Glucose 147 H Lactic Acid Calcium Ferritin AST Alkaline Phosphatase Magnesium Lactate Dehydrogenase Total Creatine Kinase CK-MB (CK-2) C-Reactive Protein Total Protein Albumin Troponin T HDL Cholesterol Urine WBC (Auto) Urine Creatinine Urine Total Protein Coronavirus (PCR) Crossmatch 05/30/20 05/30/20 05/30/20 00:08 00:12 04:15 WBC RBC Hgb Hct MCHC RDW Lymph % (Auto) [place] % (Auto) Eos % (Auto) Lymph # [place] # Lymph # (Auto) [place] # (Auto) Seg Neutrophils % Seg Neuts % (Manual) Lymphocytes % (Manual) Seg Neutrophils # Seg Neutrophils # Man Lymphocytes # (Manual) Monocytes % (Manual) Eosinophils % (Manual) Monocytes # (Manual) Eosinophils # (Manual) D-Dimer Heparin Anti-Xa Level 0.71 H ABG pH 7.460 H POC ABG pCO2 POC ABG pO2 ABG pO2 106.0 H ABG HCO3 18.9 L ABG O2 Saturation ABG Base Excess -4.4 L ABG Hemoglobin 6.8 L ABG Oxyhemoglobin VBG pH Oxyhemoglobin Sodium Potassium Chloride Carbon Dioxide BUN Creatinine Glucose POC Glucose 195 H Lactic Acid Calcium Ferritin AST Alkaline Phosphatase Magnesium Lactate Dehydrogenase Total Creatine Kinase CK-MB (CK-2) C-Reactive Protein Total Protein Albumin Troponin T HDL Cholesterol Urine WBC (Auto) Urine Creatinine Urine Total Protein Coronavirus (PCR) Crossmatch 05/30/20 05/30/20 05/30/20 06:07 08:37 12:33 WBC RBC Hgb Hct MCHC RDW Lymph % (Auto) [place] % (Auto) Eos % (Auto) Lymph # [place] # Lymph # (Auto) [place] # (Auto) Seg Neutrophils % Seg Neuts % (Manual) Lymphocytes % (Manual) Seg Neutrophils # Seg Neutrophils # Man Lymphocytes # (Manual) Monocytes % (Manual) Eosinophils % (Manual) Monocytes # (Manual) Eosinophils # (Manual) D-Dimer Heparin Anti-Xa Level 0.85 H ABG pH POC ABG pCO2 POC ABG pO2 ABG pO2 ABG HCO3 ABG O2 Saturation ABG Base Excess ABG Hemoglobin ABG Oxyhemoglobin VBG pH Oxyhemoglobin Sodium Potassium Chloride Carbon Dioxide BUN Creatinine Glucose POC Glucose 182 H 187 H Lactic Acid Calcium Ferritin AST Alkaline Phosphatase Magnesium Lactate Dehydrogenase Total Creatine Kinase CK-MB (CK-2) C-Reactive Protein Total Protein Albumin Troponin T HDL Cholesterol Urine WBC (Auto) Urine Creatinine Urine Total Protein Coronavirus (PCR) Crossmatch 05/30/20 05/30/20 05/30/20 15:58 17:57 23:36 WBC RBC Hgb Hct MCHC RDW Lymph % (Auto) [place] % (Auto) Eos % (Auto) Lymph # [place] # Lymph # (Auto) [place] # (Auto) Seg Neutrophils % Seg Neuts % (Manual) Lymphocytes % (Manual) Seg Neutrophils # Seg Neutrophils # Man Lymphocytes # (Manual) Monocytes % (Manual) Eosinophils % (Manual) Monocytes # (Manual) Eosinophils # (Manual) D-Dimer Heparin Anti-Xa Level 1.03 H ABG pH POC ABG pCO2 POC ABG pO2 ABG pO2 ABG HCO3 ABG O2 Saturation ABG Base Excess ABG Hemoglobin ABG Oxyhemoglobin VBG pH Oxyhemoglobin Sodium Potassium Chloride Carbon Dioxide BUN Creatinine Glucose POC Glucose 208 H 185 H Lactic Acid Calcium Ferritin AST Alkaline Phosphatase Magnesium Lactate Dehydrogenase Total Creatine Kinase CK-MB (CK-2) C-Reactive Protein Total Protein Albumin Troponin T HDL Cholesterol Urine WBC (Auto) Urine Creatinine Urine Total Protein Coronavirus (PCR) Crossmatch 05/31/20 05/31/20 05/31/20 02:16 03:55 06:16 WBC RBC Hgb 9.2 L Hct 27.5 L MCHC RDW Lymph % (Auto) [place] % (Auto) Eos % (Auto) Lymph # [place] # Lymph # (Auto) [place] # (Auto) Seg Neutrophils % Seg Neuts % (Manual) Lymphocytes % (Manual) Seg Neutrophils # Seg Neutrophils # Man Lymphocytes # (Manual) Monocytes % (Manual) Eosinophils % (Manual) Monocytes # (Manual) Eosinophils # (Manual) D-Dimer Heparin Anti-Xa Level ABG pH POC ABG pCO2 POC ABG pO2 ABG pO2 94.7 H ABG HCO3 18.6 L ABG O2 Saturation ABG Base Excess -5.5 L ABG Hemoglobin 7.9 L ABG Oxyhemoglobin VBG pH Oxyhemoglobin Sodium Potassium Chloride Carbon Dioxide BUN Creatinine Glucose POC Glucose 160 H Lactic Acid Calcium Ferritin AST Alkaline Phosphatase Magnesium Lactate Dehydrogenase Total Creatine Kinase CK-MB (CK-2) C-Reactive Protein Total Protein Albumin Troponin T HDL Cholesterol Urine WBC (Auto) Urine Creatinine Urine Total Protein Coronavirus (PCR) Crossmatch 05/31/20 05/31/20 05/31/20 12:20 13:03 18:13 WBC RBC Hgb Hct MCHC RDW Lymph % (Auto) [place] % (Auto) Eos % (Auto) Lymph # [place] # Lymph # (Auto) [place] # (Auto) Seg Neutrophils % Seg Neuts % (Manual) Lymphocytes % (Manual) Seg Neutrophils # Seg Neutrophils # Man Lymphocytes # (Manual) Monocytes % (Manual) Eosinophils % (Manual) Monocytes # (Manual) Eosinophils # (Manual) D-Dimer Heparin Anti-Xa Level ABG pH POC ABG pCO2 POC ABG pO2 ABG pO2 ABG HCO3 ABG O2 Saturation ABG Base Excess ABG Hemoglobin ABG Oxyhemoglobin VBG pH Oxyhemoglobin Sodium Potassium Chloride Carbon Dioxide 18 L BUN 48 H Creatinine 1.6 H Glucose 115 H POC Glucose 128 H 159 H Lactic Acid Calcium 8.3 L Ferritin AST Alkaline Phosphatase Magnesium Lactate Dehydrogenase Total Creatine Kinase CK-MB (CK-2) C-Reactive Protein Total Protein 5.4 L Albumin 2.4 L Troponin T HDL Cholesterol Urine WBC (Auto) Urine Creatinine Urine Total Protein Coronavirus (PCR) Crossmatch 05/31/20 06/01/20 06/01/20 23:51 04:00 05:48 WBC RBC Hgb Hct MCHC RDW Lymph % (Auto) [place] % (Auto) Eos % (Auto) Lymph # [place] # Lymph # (Auto) [place] # (Auto) Seg Neutrophils % Seg Neuts % (Manual) Lymphocytes % (Manual) Seg Neutrophils # Seg Neutrophils # Man Lymphocytes # (Manual) Monocytes % (Manual) Eosinophils % (Manual) Monocytes # (Manual) Eosinophils # (Manual) D-Dimer Heparin Anti-Xa Level ABG pH POC ABG pCO2 POC ABG pO2 ABG pO2 109.8 H ABG HCO3 18.8 L ABG O2 Saturation ABG Base Excess -5.9 L ABG Hemoglobin 7.8 L ABG Oxyhemoglobin VBG pH Oxyhemoglobin Sodium Potassium Chloride Carbon Dioxide BUN Creatinine Glucose POC Glucose 171 H 133 H Lactic Acid Calcium Ferritin AST Alkaline Phosphatase Magnesium Lactate Dehydrogenase Total Creatine Kinase CK-MB (CK-2) C-Reactive Protein Total Protein Albumin Troponin T HDL Cholesterol Urine WBC (Auto) Urine Creatinine Urine Total Protein Coronavirus (PCR) Crossmatch 06/01/20 06/01/20 06/02/20 12:28 17:29 00:08 WBC RBC Hgb Hct MCHC RDW Lymph % (Auto) [place] % (Auto) Eos % (Auto) Lymph # [place] # Lymph # (Auto) [place] # (Auto) Seg Neutrophils % Seg Neuts % (Manual) Lymphocytes % (Manual) Seg Neutrophils # Seg Neutrophils # Man Lymphocytes # (Manual) Monocytes % (Manual) Eosinophils % (Manual) Monocytes # (Manual) Eosinophils # (Manual) D-Dimer Heparin Anti-Xa Level ABG pH POC ABG pCO2 POC ABG pO2 ABG pO2 ABG HCO3 ABG O2 Saturation ABG Base Excess ABG Hemoglobin ABG Oxyhemoglobin VBG pH Oxyhemoglobin Sodium Potassium Chloride Carbon Dioxide BUN Creatinine Glucose POC Glucose 199 H 209 H 162 H Lactic Acid Calcium Ferritin AST Alkaline Phosphatase Magnesium Lactate Dehydrogenase Total Creatine Kinase CK-MB (CK-2) C-Reactive Protein Total Protein Albumin Troponin T HDL Cholesterol Urine WBC (Auto) Urine Creatinine Urine Total Protein Coronavirus (PCR) Crossmatch 06/02/20 06/02/20 06/02/20 04:20 04:20 04:44 WBC RBC Hgb 10.0 L Hct MCHC RDW Lymph % (Auto) [place] % (Auto) Eos % (Auto) Lymph # [place] # Lymph # (Auto) [place] # (Auto) Seg Neutrophils % Seg Neuts % (Manual) Lymphocytes % (Manual) Seg Neutrophils # Seg Neutrophils # Man Lymphocytes # (Manual) Monocytes % (Manual) Eosinophils % (Manual) Monocytes # (Manual) Eosinophils # (Manual) D-Dimer Heparin Anti-Xa Level 0.10 L ABG pH POC ABG pCO2 POC ABG pO2 ABG pO2 150.6 H ABG HCO3 ABG O2 Saturation ABG Base Excess -4.1 L ABG Hemoglobin 11.8 L ABG Oxyhemoglobin VBG pH Oxyhemoglobin Sodium Potassium Chloride Carbon Dioxide BUN Creatinine Glucose POC Glucose Lactic Acid Calcium Ferritin AST Alkaline Phosphatase Magnesium Lactate Dehydrogenase Total Creatine Kinase CK-MB (CK-2) C-Reactive Protein Total Protein Albumin Troponin T HDL Cholesterol Urine WBC (Auto) Urine Creatinine Urine Total Protein Coronavirus (PCR) Crossmatch 06/02/20 06/02/20 06/02/20 05:53 12:04 13:49 WBC RBC Hgb Hct MCHC RDW Lymph % (Auto) [place] % (Auto) Eos % (Auto) Lymph # [place] # Lymph # (Auto) [place] # (Auto) Seg Neutrophils % Seg Neuts % (Manual) Lymphocytes % (Manual) Seg Neutrophils # Seg Neutrophils # Man Lymphocytes # (Manual) Monocytes % (Manual) Eosinophils % (Manual) Monocytes # (Manual) Eosinophils # (Manual) D-Dimer Heparin Anti-Xa Level 0.28 L ABG pH POC ABG pCO2 POC ABG pO2 ABG pO2 ABG HCO3 ABG O2 Saturation ABG Base Excess ABG Hemoglobin ABG Oxyhemoglobin VBG pH Oxyhemoglobin Sodium Potassium Chloride Carbon Dioxide BUN Creatinine Glucose POC Glucose 149 H 220 H Lactic Acid Calcium Ferritin AST Alkaline Phosphatase Magnesium Lactate Dehydrogenase Total Creatine Kinase CK-MB (CK-2) C-Reactive Protein Total Protein Albumin Troponin T HDL Cholesterol Urine WBC (Auto) Urine Creatinine Urine Total Protein Coronavirus (PCR) Crossmatch 06/02/20 06/02/20 06/03/20 13:49 18:31 00:42 WBC RBC Hgb Hct MCHC RDW Lymph % (Auto) [place] % (Auto) Eos % (Auto) Lymph # [place] # Lymph # (Auto) [place] # (Auto) Seg Neutrophils % Seg Neuts % (Manual) Lymphocytes % (Manual) Seg Neutrophils # Seg Neutrophils # Man Lymphocytes # (Manual) Monocytes % (Manual) Eosinophils % (Manual) Monocytes # (Manual) Eosinophils # (Manual) D-Dimer 769.68 H Heparin Anti-Xa Level ABG pH POC ABG pCO2 POC ABG pO2 ABG pO2 ABG HCO3 ABG O2 Saturation ABG Base Excess ABG Hemoglobin ABG Oxyhemoglobin VBG pH Oxyhemoglobin Sodium Potassium Chloride Carbon Dioxide BUN Creatinine Glucose POC Glucose 225 H 212 H Lactic Acid Calcium Ferritin AST Alkaline Phosphatase Magnesium Lactate Dehydrogenase Total Creatine Kinase CK-MB (CK-2) C-Reactive Protein Total Protein Albumin Troponin T HDL Cholesterol Urine WBC (Auto) Urine Creatinine Urine Total Protein Coronavirus (PCR) Crossmatch 06/03/20 06/03/20 06/03/20 05:16 05:16 05:25 WBC 11.4 H RBC Hgb Hct MCHC RDW 16.4 H Lymph % (Auto) [place] % (Auto) Eos % (Auto) Lymph # [place] # Lymph # (Auto) [place] # (Auto) Seg Neutrophils % Seg Neuts % (Manual) Lymphocytes % (Manual) Seg Neutrophils # Seg Neutrophils # Man Lymphocytes # (Manual) Monocytes % (Manual) Eosinophils % (Manual) Monocytes # (Manual) Eosinophils # (Manual) D-Dimer Heparin Anti-Xa Level ABG pH POC ABG pCO2 POC ABG pO2 ABG pO2 160.9 H ABG HCO3 19.4 L ABG O2 Saturation ABG Base Excess -4.9 L ABG Hemoglobin 7.0 L ABG Oxyhemoglobin VBG pH Oxyhemoglobin Sodium Potassium Chloride Carbon Dioxide 18 L BUN 65 H Creatinine 2.0 H Glucose 175 H POC Glucose Lactic Acid Calcium 8.0 L Ferritin AST Alkaline Phosphatase Magnesium Lactate Dehydrogenase Total Creatine Kinase CK-MB (CK-2) C-Reactive Protein Total Protein 5.5 L Albumin 2.2 L Troponin T HDL Cholesterol Urine WBC (Auto) Urine Creatinine Urine Total Protein Coronavirus (PCR) Crossmatch 06/03/20 06/03/20 06/03/20 06:07 11:58 18:24 WBC RBC Hgb Hct MCHC RDW Lymph % (Auto) [place] % (Auto) Eos % (Auto) Lymph # [place] # Lymph # (Auto) [place] # (Auto) Seg Neutrophils % Seg Neuts % (Manual) Lymphocytes % (Manual) Seg Neutrophils # Seg Neutrophils # Man Lymphocytes # (Manual) Monocytes % (Manual) Eosinophils % (Manual) Monocytes # (Manual) Eosinophils # (Manual) D-Dimer Heparin Anti-Xa Level ABG pH POC ABG pCO2 POC ABG pO2 ABG pO2 ABG HCO3 ABG O2 Saturation ABG Base Excess ABG Hemoglobin ABG Oxyhemoglobin VBG pH Oxyhemoglobin Sodium Potassium Chloride Carbon Dioxide BUN Creatinine Glucose POC Glucose 177 H 163 H 211 H Lactic Acid Calcium Ferritin AST Alkaline Phosphatase Magnesium Lactate Dehydrogenase Total Creatine Kinase CK-MB (CK-2) C-Reactive Protein Total Protein Albumin Troponin T HDL Cholesterol Urine WBC (Auto) Urine Creatinine Urine Total Protein Coronavirus (PCR) Crossmatch 06/03/20 06/03/20 06/04/20 21:50 Unknown 00:26 WBC RBC Hgb Hct MCHC RDW Lymph % (Auto) [place] % (Auto) Eos % (Auto) Lymph # [place] # Lymph # (Auto) [place] # (Auto) Seg Neutrophils % Seg Neuts % (Manual) Lymphocytes % (Manual) Seg Neutrophils # Seg Neutrophils # Man Lymphocytes # (Manual) Monocytes % (Manual) Eosinophils % (Manual) Monocytes # (Manual) Eosinophils # (Manual) D-Dimer Heparin Anti-Xa Level ABG pH POC ABG pCO2 POC ABG pO2 ABG pO2 ABG HCO3 ABG O2 Saturation ABG Base Excess ABG Hemoglobin ABG Oxyhemoglobin VBG pH Oxyhemoglobin Sodium 135 L Potassium Chloride Carbon Dioxide 18 L BUN Creatinine Glucose POC Glucose 241 H Lactic Acid Calcium Ferritin AST Alkaline Phosphatase Magnesium Lactate Dehydrogenase Total Creatine Kinase CK-MB (CK-2) C-Reactive Protein Total Protein Albumin Troponin T HDL Cholesterol Urine WBC (Auto) 11.0 H Urine Creatinine Urine Total Protein Coronavirus (PCR) Crossmatch 06/04/20 06/04/20 06/04/20 03:35 04:19 04:19 WBC RBC 3.15 L Hgb 8.9 L Hct 26.8 L D MCHC RDW 15.9 H Lymph % (Auto) 6.0 L [place] % (Auto) Eos % (Auto) Lymph # 0.6 L [place] # Lymph # (Auto) [place] # (Auto) Seg Neutrophils % 86.6 H Seg Neuts % (Manual) Lymphocytes % (Manual) Seg Neutrophils # 9.1 H Seg Neutrophils # Man Lymphocytes # (Manual) Monocytes % (Manual) Eosinophils % (Manual) Monocytes # (Manual) Eosinophils # (Manual) D-Dimer Heparin Anti-Xa Level ABG pH 7.331 L POC ABG pCO2 POC ABG pO2 ABG pO2 ABG HCO3 ABG O2 Saturation ABG Base Excess -4.7 L ABG Hemoglobin 11.0 L ABG Oxyhemoglobin VBG pH Oxyhemoglobin 93.9 L Sodium 136 L Potassium Chloride Carbon Dioxide 20 L BUN 73 H Creatinine 2.0 H Glucose 192 H POC Glucose Lactic Acid Calcium 8.0 L Ferritin AST Alkaline Phosphatase Magnesium Lactate Dehydrogenase 271 H Total Creatine Kinase CK-MB (CK-2) C-Reactive Protein 2.20 H Total Protein 5.0 L Albumin 2.0 L Troponin T HDL Cholesterol Urine WBC (Auto) Urine Creatinine Urine Total Protein Coronavirus (PCR) Crossmatch 06/04/20 06/04/20 06/04/20 04:19 05:51 11:48 WBC RBC Hgb Hct MCHC RDW Lymph % (Auto) [place] % (Auto) Eos % (Auto) Lymph # [place] # Lymph # (Auto) [place] # (Auto) Seg Neutrophils % Seg Neuts % (Manual) Lymphocytes % (Manual) Seg Neutrophils # Seg Neutrophils # Man Lymphocytes # (Manual) Monocytes % (Manual) Eosinophils % (Manual) Monocytes # (Manual) Eosinophils # (Manual) D-Dimer 414.52 H Heparin Anti-Xa Level ABG pH POC ABG pCO2 POC ABG pO2 ABG pO2 ABG HCO3 ABG O2 Saturation ABG Base Excess ABG Hemoglobin ABG Oxyhemoglobin VBG pH Oxyhemoglobin Sodium Potassium Chloride Carbon Dioxide BUN Creatinine Glucose POC Glucose 179 H 213 H Lactic Acid Calcium Ferritin AST Alkaline Phosphatase Magnesium Lactate Dehydrogenase Total Creatine Kinase CK-MB (CK-2) C-Reactive Protein Total Protein Albumin Troponin T HDL Cholesterol Urine WBC (Auto) Urine Creatinine Urine Total Protein Coronavirus (PCR) Crossmatch 06/04/20 06/05/20 06/05/20 18:25 00:16 05:00 WBC RBC Hgb Hct MCHC RDW Lymph % (Auto) [place] % (Auto) Eos % (Auto) Lymph # [place] # Lymph # (Auto) [place] # (Auto) Seg Neutrophils % Seg Neuts % (Manual) Lymphocytes % (Manual) Seg Neutrophils # Seg Neutrophils # Man Lymphocytes # (Manual) Monocytes % (Manual) Eosinophils % (Manual) Monocytes # (Manual) Eosinophils # (Manual) D-Dimer Heparin Anti-Xa Level ABG pH 7.286 L POC ABG pCO2 POC ABG pO2 ABG pO2 96.2 H ABG HCO3 ABG O2 Saturation ABG Base Excess -6.3 L ABG Hemoglobin 8.8 L ABG Oxyhemoglobin VBG pH Oxyhemoglobin 94.8 L Sodium Potassium Chloride Carbon Dioxide BUN Creatinine Glucose POC Glucose 238 H 183 H Lactic Acid Calcium Ferritin AST Alkaline Phosphatase Magnesium Lactate Dehydrogenase Total Creatine Kinase CK-MB (CK-2) C-Reactive Protein Total Protein Albumin Troponin T HDL Cholesterol Urine WBC (Auto) Urine Creatinine Urine Total Protein Coronavirus (PCR) Crossmatch 06/05/20 06/05/20 06/05/20 05:39 07:25 07:25 WBC RBC 2.97 L Hgb 8.7 L Hct 25.7 L MCHC RDW 16.0 H Lymph % (Auto) 8.8 L [place] % (Auto) 13.3 H Eos % (Auto) Lymph # 0.8 L [place] # 1.3 H Lymph # (Auto) [place] # (Auto) Seg Neutrophils % 77.3 H Seg Neuts % (Manual) Lymphocytes % (Manual) Seg Neutrophils # Seg Neutrophils # Man Lymphocytes # (Manual) Monocytes % (Manual) Eosinophils % (Manual) Monocytes # (Manual) Eosinophils # (Manual) D-Dimer Heparin Anti-Xa Level ABG pH POC ABG pCO2 POC ABG pO2 ABG pO2 ABG HCO3 ABG O2 Saturation ABG Base Excess ABG Hemoglobin ABG Oxyhemoglobin VBG pH Oxyhemoglobin Sodium 133 L Potassium Chloride Carbon Dioxide 17 L BUN 89 H Creatinine 2.8 H Glucose 176 H POC Glucose 149 H Lactic Acid Calcium 7.7 L Ferritin AST Alkaline Phosphatase Magnesium Lactate Dehydrogenase Total Creatine Kinase CK-MB (CK-2) C-Reactive Protein Total Protein 4.2 L Albumin 1.9 L Troponin T HDL Cholesterol Urine WBC (Auto) Urine Creatinine Urine Total Protein Coronavirus (PCR) Crossmatch 06/05/20 06/05/20 06/05/20 07:25 12:05 15:41 WBC RBC Hgb Hct MCHC RDW Lymph % (Auto) [place] % (Auto) Eos % (Auto) Lymph # [place] # Lymph # (Auto) [place] # (Auto) Seg Neutrophils % Seg Neuts % (Manual) Lymphocytes % (Manual) Seg Neutrophils # Seg Neutrophils # Man Lymphocytes # (Manual) Monocytes % (Manual) Eosinophils % (Manual) Monocytes # (Manual) Eosinophils # (Manual) D-Dimer Heparin Anti-Xa Level 0.76 H 0.81 H ABG pH POC ABG pCO2 POC ABG pO2 ABG pO2 ABG HCO3 ABG O2 Saturation ABG Base Excess ABG Hemoglobin ABG Oxyhemoglobin VBG pH Oxyhemoglobin Sodium Potassium Chloride Carbon Dioxide BUN Creatinine Glucose POC Glucose 198 H Lactic Acid Calcium Ferritin AST Alkaline Phosphatase Magnesium Lactate Dehydrogenase Total Creatine Kinase CK-MB (CK-2) C-Reactive Protein Total Protein Albumin Troponin T HDL Cholesterol Urine WBC (Auto) Urine Creatinine Urine Total Protein Coronavirus (PCR) Crossmatch 06/05/20 06/05/20 06/06/20 18:08 23:25 04:00 WBC RBC Hgb Hct MCHC RDW Lymph % (Auto) [place] % (Auto) Eos % (Auto) Lymph # [place] # Lymph # (Auto) [place] # (Auto) Seg Neutrophils % Seg Neuts % (Manual) Lymphocytes % (Manual) Seg Neutrophils # Seg Neutrophils # Man Lymphocytes # (Manual) Monocytes % (Manual) Eosinophils % (Manual) Monocytes # (Manual) Eosinophils # (Manual) D-Dimer Heparin Anti-Xa Level ABG pH POC ABG pCO2 POC ABG pO2 ABG pO2 ABG HCO3 ABG O2 Saturation ABG Base Excess ABG Hemoglobin ABG Oxyhemoglobin VBG pH Oxyhemoglobin Sodium Potassium Chloride Carbon Dioxide BUN Creatinine Glucose POC Glucose 223 H 169 H Lactic Acid Calcium Ferritin AST Alkaline Phosphatase Magnesium Lactate Dehydrogenase Total Creatine Kinase CK-MB (CK-2) C-Reactive Protein Total Protein Albumin Troponin T HDL Cholesterol Urine WBC (Auto) 15.0 H Urine Creatinine Urine Total Protein Coronavirus (PCR) Crossmatch 06/06/20 06/06/20 06/06/20 04:00 05:33 05:38 WBC RBC 2.97 L Hgb 8.7 L Hct 26.8 L MCHC RDW 16.8 H Lymph % (Auto) [place] % (Auto) Eos % (Auto) Lymph # [place] # Lymph # (Auto) [place] # (Auto) Seg Neutrophils % Seg Neuts % (Manual) Lymphocytes % (Manual) Seg Neutrophils # Seg Neutrophils # Man Lymphocytes # (Manual) Monocytes % (Manual) Eosinophils % (Manual) Monocytes # (Manual) Eosinophils # (Manual) D-Dimer Heparin Anti-Xa Level ABG pH POC ABG pCO2 POC ABG pO2 ABG pO2 ABG HCO3 ABG O2 Saturation ABG Base Excess ABG Hemoglobin ABG Oxyhemoglobin VBG pH Oxyhemoglobin Sodium Potassium Chloride Carbon Dioxide BUN Creatinine Glucose POC Glucose 186 H Lactic Acid Calcium Ferritin AST Alkaline Phosphatase Magnesium Lactate Dehydrogenase Total Creatine Kinase CK-MB (CK-2) C-Reactive Protein Total Protein Albumin Troponin T HDL Cholesterol Urine WBC (Auto) Urine Creatinine 82.2 H Urine Total Protein 196 H Coronavirus (PCR) Crossmatch 06/06/20 06/06/20 06/06/20 05:38 12:25 17:03 WBC RBC Hgb Hct MCHC RDW Lymph % (Auto) [place] % (Auto) Eos % (Auto) Lymph # [place] # Lymph # (Auto) [place] # (Auto) Seg Neutrophils % Seg Neuts % (Manual) Lymphocytes % (Manual) Seg Neutrophils # Seg Neutrophils # Man Lymphocytes # (Manual) Monocytes % (Manual) Eosinophils % (Manual) Monocytes # (Manual) Eosinophils # (Manual) D-Dimer Heparin Anti-Xa Level ABG pH POC ABG pCO2 POC ABG pO2 ABG pO2 ABG HCO3 ABG O2 Saturation ABG Base Excess ABG Hemoglobin ABG Oxyhemoglobin VBG pH Oxyhemoglobin Sodium 134 L Potassium 5.2 H Chloride Carbon Dioxide 18 L BUN 97 H Creatinine 2.5 H Glucose 193 H POC Glucose 239 H 252 H Lactic Acid Calcium 7.5 L Ferritin AST Alkaline Phosphatase Magnesium Lactate Dehydrogenase Total Creatine Kinase CK-MB (CK-2) C-Reactive Protein Total Protein 4.1 L Albumin 1.9 L Troponin T HDL Cholesterol Urine WBC (Auto) Urine Creatinine Urine Total Protein Coronavirus (PCR) Crossmatch 06/07/20 06/07/20 06/07/20 00:16 01:49 04:00 WBC RBC 2.91 L Hgb 8.4 L Hct 25.0 L MCHC RDW 16.1 H Lymph % (Auto) 5.7 L [place] % (Auto) 10.5 H Eos % (Auto) Lymph # 0.6 L [place] # 1.1 H Lymph # (Auto) [place] # (Auto) Seg Neutrophils % 83.6 H Seg Neuts % (Manual) Lymphocytes % (Manual) Seg Neutrophils # 9.1 H Seg Neutrophils # Man Lymphocytes # (Manual) Monocytes % (Manual) Eosinophils % (Manual) Monocytes # (Manual) Eosinophils # (Manual) D-Dimer Heparin Anti-Xa Level 0.26 L ABG pH POC ABG pCO2 POC ABG pO2 ABG pO2 ABG HCO3 ABG O2 Saturation ABG Base Excess ABG Hemoglobin ABG Oxyhemoglobin VBG pH Oxyhemoglobin Sodium Potassium Chloride Carbon Dioxide BUN Creatinine Glucose POC Glucose 173 H Lactic Acid Calcium Ferritin AST Alkaline Phosphatase Magnesium Lactate Dehydrogenase Total Creatine Kinase CK-MB (CK-2) C-Reactive Protein Total Protein Albumin Troponin T HDL Cholesterol Urine WBC (Auto) Urine Creatinine Urine Total Protein Coronavirus (PCR) Crossmatch 06/07/20 06/07/20 06/07/20 04:00 04:54 05:51 WBC RBC Hgb Hct MCHC RDW Lymph % (Auto) [place] % (Auto) Eos % (Auto) Lymph # [place] # Lymph # (Auto) [place] # (Auto) Seg Neutrophils % Seg Neuts % (Manual) Lymphocytes % (Manual) Seg Neutrophils # Seg Neutrophils # Man Lymphocytes # (Manual) Monocytes % (Manual) Eosinophils % (Manual) Monocytes # (Manual) Eosinophils # (Manual) D-Dimer Heparin Anti-Xa Level ABG pH 7.317 L POC ABG pCO2 POC ABG pO2 ABG pO2 71.4 L ABG HCO3 ABG O2 Saturation 94.3 L ABG Base Excess -4.8 L ABG Hemoglobin 7.1 L ABG Oxyhemoglobin VBG pH Oxyhemoglobin 92.2 L Sodium 133 L Potassium Chloride Carbon Dioxide 18 L BUN 100 H Creatinine 2.5 H Glucose 158 H POC Glucose 168 H Lactic Acid Calcium 7.6 L Ferritin AST Alkaline Phosphatase Magnesium Lactate Dehydrogenase Total Creatine Kinase CK-MB (CK-2) C-Reactive Protein Total Protein 4.7 L Albumin 2.0 L Troponin T HDL Cholesterol Urine WBC (Auto) Urine Creatinine Urine Total Protein Coronavirus (PCR) Crossmatch 06/07/20 06/07/20 06/07/20 12:03 17:17 20:10 WBC RBC Hgb Hct MCHC RDW Lymph % (Auto) [place] % (Auto) Eos % (Auto) Lymph # [place] # Lymph # (Auto) [place] # (Auto) Seg Neutrophils % Seg Neuts % (Manual) Lymphocytes % (Manual) Seg Neutrophils # Seg Neutrophils # Man Lymphocytes # (Manual) Monocytes % (Manual) Eosinophils % (Manual) Monocytes # (Manual) Eosinophils # (Manual) D-Dimer Heparin Anti-Xa Level 0.17 L ABG pH POC ABG pCO2 POC ABG pO2 ABG pO2 ABG HCO3 ABG O2 Saturation ABG Base Excess ABG Hemoglobin ABG Oxyhemoglobin VBG pH Oxyhemoglobin Sodium Potassium Chloride Carbon Dioxide BUN Creatinine Glucose POC Glucose 276 H 281 H Lactic Acid Calcium Ferritin AST Alkaline Phosphatase Magnesium Lactate Dehydrogenase Total Creatine Kinase CK-MB (CK-2) C-Reactive Protein Total Protein Albumin Troponin T HDL Cholesterol Urine WBC (Auto) Urine Creatinine Urine Total Protein Coronavirus (PCR) Crossmatch 06/08/20 06/08/20 06/08/20 00:02 04:47 04:47 WBC 16.4 H RBC 3.07 L Hgb 8.6 L Hct 26.5 L MCHC RDW 16.3 H Lymph % (Auto) [place] % (Auto) Eos % (Auto) Lymph # [place] # Lymph # (Auto) [place] # (Auto) Seg Neutrophils % Seg Neuts % (Manual) 90.0 H Lymphocytes % (Manual) 3.0 L Seg Neutrophils # Seg Neutrophils # Man 14.8 H Lymphocytes # (Manual) 0.5 L Monocytes % (Manual) Eosinophils % (Manual) Monocytes # (Manual) 1.1 H Eosinophils # (Manual) D-Dimer Heparin Anti-Xa Level ABG pH POC ABG pCO2 POC ABG pO2 ABG pO2 ABG HCO3 ABG O2 Saturation ABG Base Excess ABG Hemoglobin ABG Oxyhemoglobin VBG pH Oxyhemoglobin Sodium 129 L Potassium Chloride 95.6 L Carbon Dioxide 17 L BUN 106 H Creatinine 2.5 H Glucose 213 H POC Glucose 242 H Lactic Acid Calcium 7.6 L Ferritin AST Alkaline Phosphatase Magnesium Lactate Dehydrogenase Total Creatine Kinase CK-MB (CK-2) C-Reactive Protein Total Protein 5.0 L Albumin 2.1 L Troponin T HDL Cholesterol Urine WBC (Auto) Urine Creatinine Urine Total Protein Coronavirus (PCR) Crossmatch 06/08/20 06/08/20 06/08/20 05:40 11:55 17:54 WBC RBC Hgb Hct MCHC RDW Lymph % (Auto) [place] % (Auto) Eos % (Auto) Lymph # [place] # Lymph # (Auto) [place] # (Auto) Seg Neutrophils % Seg Neuts % (Manual) Lymphocytes % (Manual) Seg Neutrophils # Seg Neutrophils # Man Lymphocytes # (Manual) Monocytes % (Manual) Eosinophils % (Manual) Monocytes # (Manual) Eosinophils # (Manual) D-Dimer Heparin Anti-Xa Level ABG pH POC ABG pCO2 POC ABG pO2 ABG pO2 ABG HCO3 ABG O2 Saturation ABG Base Excess ABG Hemoglobin ABG Oxyhemoglobin VBG pH Oxyhemoglobin Sodium Potassium Chloride Carbon Dioxide BUN Creatinine Glucose POC Glucose 221 H 218 H 163 H Lactic Acid Calcium Ferritin AST Alkaline Phosphatase Magnesium Lactate Dehydrogenase Total Creatine Kinase CK-MB (CK-2) C-Reactive Protein Total Protein Albumin Troponin T HDL Cholesterol Urine WBC (Auto) Urine Creatinine Urine Total Protein Coronavirus (PCR) Crossmatch 06/08/20 06/09/20 06/09/20 22:01 00:09 05:16 WBC 19.0 H RBC 3.35 L Hgb 9.2 L Hct 28.5 L MCHC RDW 16.3 H Lymph % (Auto) [place] % (Auto) Eos % (Auto) Lymph # [place] # Lymph # (Auto) [place] # (Auto) Seg Neutrophils % Seg Neuts % (Manual) 85.0 H Lymphocytes % (Manual) 7.0 L Seg Neutrophils # Seg Neutrophils # Man 16.2 H Lymphocytes # (Manual) Monocytes % (Manual) Eosinophils % (Manual) Monocytes # (Manual) 1.3 H Eosinophils # (Manual) D-Dimer Heparin Anti-Xa Level ABG pH POC ABG pCO2 POC ABG pO2 ABG pO2 ABG HCO3 ABG O2 Saturation ABG Base Excess ABG Hemoglobin ABG Oxyhemoglobin VBG pH Oxyhemoglobin Sodium Potassium Chloride Carbon Dioxide BUN Creatinine Glucose POC Glucose 182 H 150 H Lactic Acid Calcium Ferritin AST Alkaline Phosphatase Magnesium Lactate Dehydrogenase Total Creatine Kinase CK-MB (CK-2) C-Reactive Protein Total Protein Albumin Troponin T HDL Cholesterol Urine WBC (Auto) Urine Creatinine Urine Total Protein Coronavirus (PCR) Crossmatch 06/09/20 06/09/20 06/09/20 05:16 05:24 11:29 WBC RBC Hgb Hct MCHC RDW Lymph % (Auto) [place] % (Auto) Eos % (Auto) Lymph # [place] # Lymph # (Auto) [place] # (Auto) Seg Neutrophils % Seg Neuts % (Manual) Lymphocytes % (Manual) Seg Neutrophils # Seg Neutrophils # Man Lymphocytes # (Manual) Monocytes % (Manual) Eosinophils % (Manual) Monocytes # (Manual) Eosinophils # (Manual) D-Dimer Heparin Anti-Xa Level ABG pH POC ABG pCO2 POC ABG pO2 ABG pO2 ABG HCO3 ABG O2 Saturation ABG Base Excess ABG Hemoglobin ABG Oxyhemoglobin VBG pH Oxyhemoglobin Sodium 133 L Potassium Chloride Carbon Dioxide 19 L BUN 109 H Creatinine 2.1 H Glucose 133 H POC Glucose 128 H 119 H Lactic Acid Calcium 7.7 L Ferritin AST Alkaline Phosphatase < 5 L Magnesium Lactate Dehydrogenase Total Creatine Kinase CK-MB (CK-2) C-Reactive Protein Total Protein 4.6 L Albumin < 0.2 L Troponin T HDL Cholesterol Urine WBC (Auto) Urine Creatinine Urine Total Protein Coronavirus (PCR) Crossmatch 06/09/20 06/10/20 06/10/20 17:32 00:00 05:49 WBC RBC Hgb Hct MCHC RDW Lymph % (Auto) [place] % (Auto) Eos % (Auto) Lymph # [place] # Lymph # (Auto) [place] # (Auto) Seg Neutrophils % Seg Neuts % (Manual) Lymphocytes % (Manual) Seg Neutrophils # Seg Neutrophils # Man Lymphocytes # (Manual) Monocytes % (Manual) Eosinophils % (Manual) Monocytes # (Manual) Eosinophils # (Manual) D-Dimer Heparin Anti-Xa Level 0.19 L ABG pH POC ABG pCO2 POC ABG pO2 ABG pO2 ABG HCO3 ABG O2 Saturation ABG Base Excess ABG Hemoglobin ABG Oxyhemoglobin VBG pH Oxyhemoglobin Sodium Potassium Chloride Carbon Dioxide BUN Creatinine Glucose POC Glucose 106 H 117 H Lactic Acid Calcium Ferritin AST Alkaline Phosphatase Magnesium Lactate Dehydrogenase Total Creatine Kinase CK-MB (CK-2) C-Reactive Protein Total Protein Albumin Troponin T HDL Cholesterol Urine WBC (Auto) Urine Creatinine Urine Total Protein Coronavirus (PCR) Crossmatch 06/10/20 06/10/20 06/10/20 05:54 07:40 11:40 WBC RBC Hgb Hct MCHC RDW Lymph % (Auto) [place] % (Auto) Eos % (Auto) Lymph # [place] # Lymph # (Auto) [place] # (Auto) Seg Neutrophils % Seg Neuts % (Manual) Lymphocytes % (Manual) Seg Neutrophils # Seg Neutrophils # Man Lymphocytes # (Manual) Monocytes % (Manual) Eosinophils % (Manual) Monocytes # (Manual) Eosinophils # (Manual) D-Dimer Heparin Anti-Xa Level ABG pH POC ABG pCO2 POC ABG pO2 ABG pO2 ABG HCO3 ABG O2 Saturation ABG Base Excess ABG Hemoglobin ABG Oxyhemoglobin VBG pH Oxyhemoglobin Sodium 146 H D Potassium Chloride Carbon Dioxide 20 L BUN 99 H Creatinine 1.9 H Glucose 121 H POC Glucose 127 H 138 H Lactic Acid Calcium 8.2 L Ferritin AST Alkaline Phosphatase Magnesium Lactate Dehydrogenase Total Creatine Kinase CK-MB (CK-2) C-Reactive Protein Total Protein Albumin Troponin T HDL Cholesterol Urine WBC (Auto) Urine Creatinine Urine Total Protein Coronavirus (PCR) Crossmatch 06/10/20 06/10/20 06/10/20 14:44 17:31 23:22 WBC RBC Hgb Hct MCHC RDW Lymph % (Auto) [place] % (Auto) Eos % (Auto) Lymph # [place] # Lymph # (Auto) [place] # (Auto) Seg Neutrophils % Seg Neuts % (Manual) Lymphocytes % (Manual) Seg Neutrophils # Seg Neutrophils # Man Lymphocytes # (Manual) Monocytes % (Manual) Eosinophils % (Manual) Monocytes # (Manual) Eosinophils # (Manual) D-Dimer Heparin Anti-Xa Level 0.17 L ABG pH POC ABG pCO2 POC ABG pO2 ABG pO2 ABG HCO3 ABG O2 Saturation ABG Base Excess ABG Hemoglobin ABG Oxyhemoglobin VBG pH Oxyhemoglobin Sodium Potassium Chloride Carbon Dioxide BUN Creatinine Glucose POC Glucose 128 H 114 H Lactic Acid Calcium Ferritin AST Alkaline Phosphatase Magnesium Lactate Dehydrogenase Total Creatine Kinase CK-MB (CK-2) C-Reactive Protein Total Protein Albumin Troponin T HDL Cholesterol Urine WBC (Auto) Urine Creatinine Urine Total Protein Coronavirus (PCR) Crossmatch 06/11/20 06/11/20 06/11/20 00:22 03:45 03:45 WBC 14.6 H RBC 2.77 L Hgb 7.9 L Hct 24.3 L MCHC RDW 16.8 H Lymph % (Auto) 6.6 L [place] % (Auto) 8.5 H Eos % (Auto) Lymph # 1.0 L [place] # 1.2 H Lymph # (Auto) [place] # (Auto) Seg Neutrophils % 82.9 H Seg Neuts % (Manual) Lymphocytes % (Manual) Seg Neutrophils # 12.1 H Seg Neutrophils # Man Lymphocytes # (Manual) Monocytes % (Manual) Eosinophils % (Manual) Monocytes # (Manual) Eosinophils # (Manual) D-Dimer Heparin Anti-Xa Level 0.24 L ABG pH POC ABG pCO2 POC ABG pO2 ABG pO2 ABG HCO3 ABG O2 Saturation ABG Base Excess ABG Hemoglobin ABG Oxyhemoglobin VBG pH Oxyhemoglobin Sodium Potassium Chloride Carbon Dioxide 20 L BUN 88 H Creatinine 1.5 H Glucose 111 H POC Glucose Lactic Acid Calcium 8.2 L Ferritin AST Alkaline Phosphatase Magnesium Lactate Dehydrogenase Total Creatine Kinase CK-MB (CK-2) C-Reactive Protein Total Protein Albumin Troponin T HDL Cholesterol Urine WBC (Auto) Urine Creatinine Urine Total Protein Coronavirus (PCR) Crossmatch 06/11/20 06/11/20 06/11/20 06:03 10:22 11:11 WBC RBC Hgb Hct MCHC RDW Lymph % (Auto) [place] % (Auto) Eos % (Auto) Lymph # [place] # Lymph # (Auto) [place] # (Auto) Seg Neutrophils % Seg Neuts % (Manual) Lymphocytes % (Manual) Seg Neutrophils # Seg Neutrophils # Man Lymphocytes # (Manual) Monocytes % (Manual) Eosinophils % (Manual) Monocytes # (Manual) Eosinophils # (Manual) D-Dimer Heparin Anti-Xa Level 0.26 L ABG pH POC ABG pCO2 POC ABG pO2 ABG pO2 ABG HCO3 ABG O2 Saturation ABG Base Excess ABG Hemoglobin 9.6 L ABG Oxyhemoglobin VBG pH Oxyhemoglobin Sodium Potassium Chloride Carbon Dioxide BUN Creatinine Glucose POC Glucose 114 H Lactic Acid Calcium Ferritin AST Alkaline Phosphatase Magnesium Lactate Dehydrogenase Total Creatine Kinase CK-MB (CK-2) C-Reactive Protein Total Protein Albumin Troponin T HDL Cholesterol Urine WBC (Auto) Urine Creatinine Urine Total Protein Coronavirus (PCR) Crossmatch 06/11/20 06/11/20 06/12/20 12:24 17:24 00:21 WBC RBC Hgb Hct MCHC RDW Lymph % (Auto) [place] % (Auto) Eos % (Auto) Lymph # [place] # Lymph # (Auto) [place] # (Auto) Seg Neutrophils % Seg Neuts % (Manual) Lymphocytes % (Manual) Seg Neutrophils # Seg Neutrophils # Man Lymphocytes # (Manual) Monocytes % (Manual) Eosinophils % (Manual) Monocytes # (Manual) Eosinophils # (Manual) D-Dimer Heparin Anti-Xa Level ABG pH POC ABG pCO2 POC ABG pO2 ABG pO2 ABG HCO3 ABG O2 Saturation ABG Base Excess ABG Hemoglobin ABG Oxyhemoglobin VBG pH Oxyhemoglobin Sodium Potassium Chloride Carbon Dioxide BUN Creatinine Glucose POC Glucose 119 H 126 H 117 H Lactic Acid Calcium Ferritin AST Alkaline Phosphatase Magnesium Lactate Dehydrogenase Total Creatine Kinase CK-MB (CK-2) C-Reactive Protein Total Protein Albumin Troponin T HDL Cholesterol Urine WBC (Auto) Urine Creatinine Urine Total Protein Coronavirus (PCR) Crossmatch 06/12/20 06/12/20 06/12/20 02:46 02:46 05:46 WBC 13.2 H RBC 2.83 L Hgb 8.3 L Hct 24.3 L MCHC RDW 16.6 H Lymph % (Auto) 6.2 L [place] % (Auto) 9.5 H Eos % (Auto) Lymph # 0.8 L [place] # 1.3 H Lymph # (Auto) [place] # (Auto) Seg Neutrophils % 81.9 H Seg Neuts % (Manual) Lymphocytes % (Manual) Seg Neutrophils # 10.9 H Seg Neutrophils # Man Lymphocytes # (Manual) Monocytes % (Manual) Eosinophils % (Manual) Monocytes # (Manual) Eosinophils # (Manual) D-Dimer Heparin Anti-Xa Level ABG pH POC ABG pCO2 POC ABG pO2 ABG pO2 ABG HCO3 ABG O2 Saturation ABG Base Excess ABG Hemoglobin ABG Oxyhemoglobin VBG pH Oxyhemoglobin Sodium Potassium 3.5 L Chloride Carbon Dioxide BUN 77 H Creatinine 1.3 H Glucose POC Glucose 132 H Lactic Acid Calcium 8.3 L Ferritin AST Alkaline Phosphatase Magnesium Lactate Dehydrogenase Total Creatine Kinase CK-MB (CK-2) C-Reactive Protein Total Protein Albumin Troponin T HDL Cholesterol Urine WBC (Auto) Urine Creatinine Urine Total Protein Coronavirus (PCR) Crossmatch 06/12/20 06/12/20 06/12/20 09:20 12:16 17:48 WBC RBC Hgb Hct MCHC RDW Lymph % (Auto) [place] % (Auto) Eos % (Auto) Lymph # [place] # Lymph # (Auto) [place] # (Auto) Seg Neutrophils % Seg Neuts % (Manual) Lymphocytes % (Manual) Seg Neutrophils # Seg Neutrophils # Man Lymphocytes # (Manual) Monocytes % (Manual) Eosinophils % (Manual) Monocytes # (Manual) Eosinophils # (Manual) D-Dimer Heparin Anti-Xa Level ABG pH POC ABG pCO2 POC ABG pO2 ABG pO2 91.1 H ABG HCO3 ABG O2 Saturation ABG Base Excess ABG Hemoglobin ABG Oxyhemoglobin VBG pH Oxyhemoglobin 94.8 L Sodium Potassium Chloride Carbon Dioxide BUN Creatinine Glucose POC Glucose 167 H 182 H Lactic Acid Calcium Ferritin AST Alkaline Phosphatase Magnesium Lactate Dehydrogenase Total Creatine Kinase CK-MB (CK-2) C-Reactive Protein Total Protein Albumin Troponin T HDL Cholesterol Urine WBC (Auto) Urine Creatinine Urine Total Protein Coronavirus (PCR) Crossmatch 06/13/20 06/13/20 06/13/20 00:08 05:37 09:09 WBC RBC Hgb Hct MCHC RDW Lymph % (Auto) [place] % (Auto) Eos % (Auto) Lymph # [place] # Lymph # (Auto) [place] # (Auto) Seg Neutrophils % Seg Neuts % (Manual) Lymphocytes % (Manual) Seg Neutrophils # Seg Neutrophils # Man Lymphocytes # (Manual) Monocytes % (Manual) Eosinophils % (Manual) Monocytes # (Manual) Eosinophils # (Manual) D-Dimer Heparin Anti-Xa Level 0.86 H ABG pH POC ABG pCO2 POC ABG pO2 ABG pO2 ABG HCO3 ABG O2 Saturation ABG Base Excess ABG Hemoglobin ABG Oxyhemoglobin VBG pH Oxyhemoglobin Sodium Potassium Chloride Carbon Dioxide BUN Creatinine Glucose POC Glucose 142 H 119 H Lactic Acid Calcium Ferritin AST Alkaline Phosphatase Magnesium Lactate Dehydrogenase Total Creatine Kinase CK-MB (CK-2) C-Reactive Protein Total Protein Albumin Troponin T HDL Cholesterol Urine WBC (Auto) Urine Creatinine Urine Total Protein Coronavirus (PCR) Crossmatch 06/13/20 06/13/20 06/13/20 12:28 17:55 21:17 WBC RBC Hgb Hct MCHC RDW Lymph % (Auto) [place] % (Auto) Eos % (Auto) Lymph # [place] # Lymph # (Auto) [place] # (Auto) Seg Neutrophils % Seg Neuts % (Manual) Lymphocytes % (Manual) Seg Neutrophils # Seg Neutrophils # Man Lymphocytes # (Manual) Monocytes % (Manual) Eosinophils % (Manual) Monocytes # (Manual) Eosinophils # (Manual) D-Dimer Heparin Anti-Xa Level ABG pH POC ABG pCO2 POC ABG pO2 ABG pO2 ABG HCO3 ABG O2 Saturation ABG Base Excess ABG Hemoglobin ABG Oxyhemoglobin VBG pH Oxyhemoglobin Sodium Potassium Chloride Carbon Dioxide BUN 61 H Creatinine Glucose 131 H POC Glucose 165 H 174 H Lactic Acid Calcium Ferritin AST Alkaline Phosphatase Magnesium Lactate Dehydrogenase Total Creatine Kinase CK-MB (CK-2) C-Reactive Protein Total Protein Albumin Troponin T HDL Cholesterol Urine WBC (Auto) Urine Creatinine Urine Total Protein Coronavirus (PCR) Crossmatch 06/13/20 06/13/20 06/14/20 21:17 23:50 05:34 WBC RBC Hgb Hct MCHC RDW Lymph % (Auto) [place] % (Auto) Eos % (Auto) Lymph # [place] # Lymph # (Auto) [place] # (Auto) Seg Neutrophils % Seg Neuts % (Manual) Lymphocytes % (Manual) Seg Neutrophils # Seg Neutrophils # Man Lymphocytes # (Manual) Monocytes % (Manual) Eosinophils % (Manual) Monocytes # (Manual) Eosinophils # (Manual) D-Dimer Heparin Anti-Xa Level 0.72 H ABG pH POC ABG pCO2 POC ABG pO2 ABG pO2 ABG HCO3 ABG O2 Saturation ABG Base Excess ABG Hemoglobin ABG Oxyhemoglobin VBG pH Oxyhemoglobin Sodium 146 H Potassium Chloride 107.6 H Carbon Dioxide BUN 61 H Creatinine 1.3 H Glucose 135 H POC Glucose 146 H Lactic Acid Calcium Ferritin AST Alkaline Phosphatase Magnesium Lactate Dehydrogenase Total Creatine Kinase CK-MB (CK-2) C-Reactive Protein Total Protein Albumin Troponin T HDL Cholesterol Urine WBC (Auto) Urine Creatinine Urine Total Protein Coronavirus (PCR) Crossmatch 06/14/20 06/14/20 06/14/20 06:11 09:28 11:30 WBC RBC Hgb Hct MCHC RDW Lymph % (Auto) [place] % (Auto) Eos % (Auto) Lymph # [place] # Lymph # (Auto) [place] # (Auto) Seg Neutrophils % Seg Neuts % (Manual) Lymphocytes % (Manual) Seg Neutrophils # Seg Neutrophils # Man Lymphocytes # (Manual) Monocytes % (Manual) Eosinophils % (Manual) Monocytes # (Manual) Eosinophils # (Manual) D-Dimer Heparin Anti-Xa Level 0.90 H ABG pH POC ABG pCO2 POC ABG pO2 ABG pO2 ABG HCO3 ABG O2 Saturation ABG Base Excess ABG Hemoglobin ABG Oxyhemoglobin VBG pH Oxyhemoglobin Sodium Potassium Chloride Carbon Dioxide BUN Creatinine Glucose POC Glucose 141 H 186 H Lactic Acid Calcium Ferritin AST Alkaline Phosphatase Magnesium Lactate Dehydrogenase Total Creatine Kinase CK-MB (CK-2) C-Reactive Protein Total Protein Albumin Troponin T HDL Cholesterol Urine WBC (Auto) Urine Creatinine Urine Total Protein Coronavirus (PCR) Crossmatch 06/14/20 06/14/20 06/14/20 16:07 18:16 23:51 WBC RBC Hgb Hct MCHC RDW Lymph % (Auto) [place] % (Auto) Eos % (Auto) Lymph # [place] # Lymph # (Auto) [place] # (Auto) Seg Neutrophils % Seg Neuts % (Manual) Lymphocytes % (Manual) Seg Neutrophils # Seg Neutrophils # Man Lymphocytes # (Manual) Monocytes % (Manual) Eosinophils % (Manual) Monocytes # (Manual) Eosinophils # (Manual) D-Dimer Heparin Anti-Xa Level 0.82 H ABG pH POC ABG pCO2 POC ABG pO2 ABG pO2 ABG HCO3 ABG O2 Saturation ABG Base Excess ABG Hemoglobin ABG Oxyhemoglobin VBG pH Oxyhemoglobin Sodium Potassium Chloride Carbon Dioxide BUN Creatinine Glucose POC Glucose 106 H 154 H Lactic Acid Calcium Ferritin AST Alkaline Phosphatase Magnesium Lactate Dehydrogenase Total Creatine Kinase CK-MB (CK-2) C-Reactive Protein Total Protein Albumin Troponin T HDL Cholesterol Urine WBC (Auto) Urine Creatinine Urine Total Protein Coronavirus (PCR) Crossmatch 06/15/20 06/15/20 06/15/20 04:24 04:24 05:59 WBC RBC 2.75 L Hgb 7.9 L Hct 24.0 L MCHC RDW 16.4 H Lymph % (Auto) 12.9 L [place] % (Auto) 8.7 H Eos % (Auto) 4.6 H Lymph # 1.1 L [place] # Lymph # (Auto) [place] # (Auto) Seg Neutrophils % 73.2 H Seg Neuts % (Manual) Lymphocytes % (Manual) Seg Neutrophils # Seg Neutrophils # Man Lymphocytes # (Manual) Monocytes % (Manual) Eosinophils % (Manual) Monocytes # (Manual) Eosinophils # (Manual) D-Dimer Heparin Anti-Xa Level ABG pH POC ABG pCO2 POC ABG pO2 ABG pO2 ABG HCO3 ABG O2 Saturation ABG Base Excess ABG Hemoglobin ABG Oxyhemoglobin VBG pH Oxyhemoglobin Sodium Potassium 3.4 L Chloride Carbon Dioxide BUN 55 H Creatinine 1.3 H Glucose 142 H POC Glucose 131 H Lactic Acid Calcium Ferritin AST Alkaline Phosphatase Magnesium Lactate Dehydrogenase Total Creatine Kinase CK-MB (CK-2) C-Reactive Protein Total Protein Albumin Troponin T HDL Cholesterol Urine WBC (Auto) Urine Creatinine Urine Total Protein Coronavirus (PCR) Crossmatch 06/15/20 06/15/20 06/16/20 12:33 17:07 00:22 WBC RBC Hgb Hct MCHC RDW Lymph % (Auto) [place] % (Auto) Eos % (Auto) Lymph # [place] # Lymph # (Auto) [place] # (Auto) Seg Neutrophils % Seg Neuts % (Manual) Lymphocytes % (Manual) Seg Neutrophils # Seg Neutrophils # Man Lymphocytes # (Manual) Monocytes % (Manual) Eosinophils % (Manual) Monocytes # (Manual) Eosinophils # (Manual) D-Dimer Heparin Anti-Xa Level 0.21 L ABG pH POC ABG pCO2 POC ABG pO2 ABG pO2 ABG HCO3 ABG O2 Saturation ABG Base Excess ABG Hemoglobin ABG Oxyhemoglobin VBG pH Oxyhemoglobin Sodium Potassium Chloride Carbon Dioxide BUN Creatinine Glucose POC Glucose 180 H 185 H Lactic Acid Calcium Ferritin AST Alkaline Phosphatase Magnesium Lactate Dehydrogenase Total Creatine Kinase CK-MB (CK-2) C-Reactive Protein Total Protein Albumin Troponin T HDL Cholesterol Urine WBC (Auto) Urine Creatinine Urine Total Protein Coronavirus (PCR) Crossmatch 06/16/20 06/16/20 06/16/20 01:45 08:06 09:15 WBC RBC Hgb Hct MCHC RDW Lymph % (Auto) [place] % (Auto) Eos % (Auto) Lymph # [place] # Lymph # (Auto) [place] # (Auto) Seg Neutrophils % Seg Neuts % (Manual) Lymphocytes % (Manual) Seg Neutrophils # Seg Neutrophils # Man Lymphocytes # (Manual) Monocytes % (Manual) Eosinophils % (Manual) Monocytes # (Manual) Eosinophils # (Manual) D-Dimer Heparin Anti-Xa Level ABG pH POC ABG pCO2 POC ABG pO2 ABG pO2 ABG HCO3 ABG O2 Saturation ABG Base Excess ABG Hemoglobin ABG Oxyhemoglobin VBG pH Oxyhemoglobin Sodium Potassium Chloride Carbon Dioxide BUN 49 H Creatinine Glucose 154 H POC Glucose 140 H 171 H Lactic Acid Calcium Ferritin AST Alkaline Phosphatase Magnesium Lactate Dehydrogenase Total Creatine Kinase CK-MB (CK-2) C-Reactive Protein Total Protein Albumin Troponin T HDL Cholesterol Urine WBC (Auto) Urine Creatinine Urine Total Protein Coronavirus (PCR) Crossmatch 06/16/20 06/16/20 06/16/20 10:46 12:33 17:54 WBC RBC Hgb Hct MCHC RDW Lymph % (Auto) [place] % (Auto) Eos % (Auto) Lymph # [place] # Lymph # (Auto) [place] # (Auto) Seg Neutrophils % Seg Neuts % (Manual) Lymphocytes % (Manual) Seg Neutrophils # Seg Neutrophils # Man Lymphocytes # (Manual) Monocytes % (Manual) Eosinophils % (Manual) Monocytes # (Manual) Eosinophils # (Manual) D-Dimer Heparin Anti-Xa Level 0.12 L ABG pH POC ABG pCO2 POC ABG pO2 ABG pO2 ABG HCO3 ABG O2 Saturation ABG Base Excess ABG Hemoglobin ABG Oxyhemoglobin VBG pH Oxyhemoglobin Sodium Potassium Chloride Carbon Dioxide BUN Creatinine Glucose POC Glucose 166 H 151 H Lactic Acid Calcium Ferritin AST Alkaline Phosphatase Magnesium Lactate Dehydrogenase Total Creatine Kinase CK-MB (CK-2) C-Reactive Protein Total Protein Albumin Troponin T HDL Cholesterol Urine WBC (Auto) Urine Creatinine Urine Total Protein Coronavirus (PCR) Crossmatch 06/16/20 06/17/20 06/17/20 18:47 00:00 02:19 WBC RBC Hgb Hct MCHC RDW Lymph % (Auto) [place] % (Auto) Eos % (Auto) Lymph # [place] # Lymph # (Auto) [place] # (Auto) Seg Neutrophils % Seg Neuts % (Manual) Lymphocytes % (Manual) Seg Neutrophils # Seg Neutrophils # Man Lymphocytes # (Manual) Monocytes % (Manual) Eosinophils % (Manual) Monocytes # (Manual) Eosinophils # (Manual) D-Dimer Heparin Anti-Xa Level 0.73 H 0.77 H ABG pH POC ABG pCO2 POC ABG pO2 ABG pO2 ABG HCO3 ABG O2 Saturation ABG Base Excess ABG Hemoglobin ABG Oxyhemoglobin VBG pH Oxyhemoglobin Sodium Potassium Chloride Carbon Dioxide BUN Creatinine Glucose POC Glucose 139 H Lactic Acid Calcium Ferritin AST Alkaline Phosphatase Magnesium Lactate Dehydrogenase Total Creatine Kinase CK-MB (CK-2) C-Reactive Protein Total Protein Albumin Troponin T HDL Cholesterol Urine WBC (Auto) Urine Creatinine Urine Total Protein Coronavirus (PCR) Crossmatch 06/17/20 06/17/20 06/17/20 06:07 11:42 16:43 WBC RBC Hgb Hct MCHC RDW Lymph % (Auto) [place] % (Auto) Eos % (Auto) Lymph # [place] # Lymph # (Auto) [place] # (Auto) Seg Neutrophils % Seg Neuts % (Manual) Lymphocytes % (Manual) Seg Neutrophils # Seg Neutrophils # Man Lymphocytes # (Manual) Monocytes % (Manual) Eosinophils % (Manual) Monocytes # (Manual) Eosinophils # (Manual) D-Dimer Heparin Anti-Xa Level 0.73 H ABG pH POC ABG pCO2 POC ABG pO2 ABG pO2 ABG HCO3 ABG O2 Saturation ABG Base Excess ABG Hemoglobin ABG Oxyhemoglobin VBG pH Oxyhemoglobin Sodium Potassium Chloride Carbon Dioxide BUN Creatinine Glucose POC Glucose 169 H 169 H Lactic Acid Calcium Ferritin AST Alkaline Phosphatase Magnesium Lactate Dehydrogenase Total Creatine Kinase CK-MB (CK-2) C-Reactive Protein Total Protein Albumin Troponin T HDL Cholesterol Urine WBC (Auto) Urine Creatinine Urine Total Protein Coronavirus (PCR) Crossmatch 06/17/20 06/17/20 06/17/20 18:18 23:08 23:16 WBC RBC Hgb Hct MCHC RDW Lymph % (Auto) [place] % (Auto) Eos % (Auto) Lymph # [place] # Lymph # (Auto) [place] # (Auto) Seg Neutrophils % Seg Neuts % (Manual) Lymphocytes % (Manual) Seg Neutrophils # Seg Neutrophils # Man Lymphocytes # (Manual) Monocytes % (Manual) Eosinophils % (Manual) Monocytes # (Manual) Eosinophils # (Manual) D-Dimer Heparin Anti-Xa Level 0.71 H ABG pH POC ABG pCO2 POC ABG pO2 ABG pO2 ABG HCO3 ABG O2 Saturation ABG Base Excess ABG Hemoglobin ABG Oxyhemoglobin VBG pH Oxyhemoglobin Sodium Potassium Chloride Carbon Dioxide BUN Creatinine Glucose POC Glucose 159 H 134 H Lactic Acid Calcium Ferritin AST Alkaline Phosphatase Magnesium Lactate Dehydrogenase Total Creatine Kinase CK-MB (CK-2) C-Reactive Protein Total Protein Albumin Troponin T HDL Cholesterol Urine WBC (Auto) Urine Creatinine Urine Total Protein Coronavirus (PCR) Crossmatch 06/18/20 06/18/20 06/18/20 04:42 05:52 11:50 WBC RBC Hgb Hct MCHC RDW Lymph % (Auto) [place] % (Auto) Eos % (Auto) Lymph # [place] # Lymph # (Auto) [place] # (Auto) Seg Neutrophils % Seg Neuts % (Manual) Lymphocytes % (Manual) Seg Neutrophils # Seg Neutrophils # Man Lymphocytes # (Manual) Monocytes % (Manual) Eosinophils % (Manual) Monocytes # (Manual) Eosinophils # (Manual) D-Dimer Heparin Anti-Xa Level ABG pH POC ABG pCO2 POC ABG pO2 ABG pO2 ABG HCO3 ABG O2 Saturation ABG Base Excess ABG Hemoglobin ABG Oxyhemoglobin VBG pH Oxyhemoglobin Sodium Potassium Chloride Carbon Dioxide BUN 44 H Creatinine Glucose 115 H POC Glucose 171 H 167 H Lactic Acid Calcium Ferritin AST Alkaline Phosphatase Magnesium Lactate Dehydrogenase Total Creatine Kinase CK-MB (CK-2) C-Reactive Protein Total Protein Albumin Troponin T HDL Cholesterol Urine WBC (Auto) Urine Creatinine Urine Total Protein Coronavirus (PCR) Crossmatch 06/18/20 06/19/20 06/19/20 23:46 05:48 07:52 WBC RBC Hgb Hct MCHC RDW Lymph % (Auto) [place] % (Auto) Eos % (Auto) Lymph # [place] # Lymph # (Auto) [place] # (Auto) Seg Neutrophils % Seg Neuts % (Manual) Lymphocytes % (Manual) Seg Neutrophils # Seg Neutrophils # Man Lymphocytes # (Manual) Monocytes % (Manual) Eosinophils % (Manual) Monocytes # (Manual) Eosinophils # (Manual) D-Dimer Heparin Anti-Xa Level ABG pH POC ABG pCO2 POC ABG pO2 ABG pO2 ABG HCO3 ABG O2 Saturation ABG Base Excess ABG Hemoglobin ABG Oxyhemoglobin VBG pH Oxyhemoglobin Sodium Potassium Chloride Carbon Dioxide BUN Creatinine Glucose POC Glucose 130 H 207 H 175 H Lactic Acid Calcium Ferritin AST Alkaline Phosphatase Magnesium Lactate Dehydrogenase Total Creatine Kinase CK-MB (CK-2) C-Reactive Protein Total Protein Albumin Troponin T HDL Cholesterol Urine WBC (Auto) Urine Creatinine Urine Total Protein Coronavirus (PCR) Crossmatch 06/19/20 06/19/20 06/20/20 11:42 22:54 05:17 WBC RBC Hgb Hct MCHC RDW Lymph % (Auto) [place] % (Auto) Eos % (Auto) Lymph # [place] # Lymph # (Auto) [place] # (Auto) Seg Neutrophils % Seg Neuts % (Manual) Lymphocytes % (Manual) Seg Neutrophils # Seg Neutrophils # Man Lymphocytes # (Manual) Monocytes % (Manual) Eosinophils % (Manual) Monocytes # (Manual) Eosinophils # (Manual) D-Dimer Heparin Anti-Xa Level ABG pH POC ABG pCO2 POC ABG pO2 ABG pO2 ABG HCO3 ABG O2 Saturation ABG Base Excess ABG Hemoglobin ABG Oxyhemoglobin VBG pH Oxyhemoglobin Sodium Potassium Chloride Carbon Dioxide BUN Creatinine Glucose POC Glucose 166 H 135 H 218 H Lactic Acid Calcium Ferritin AST Alkaline Phosphatase Magnesium Lactate Dehydrogenase Total Creatine Kinase CK-MB (CK-2) C-Reactive Protein Total Protein Albumin Troponin T HDL Cholesterol Urine WBC (Auto) Urine Creatinine Urine Total Protein Coronavirus (PCR) Crossmatch 06/20/20 06/20/20 06/20/20 12:04 16:25 16:35 WBC RBC Hgb Hct MCHC RDW Lymph % (Auto) [place] % (Auto) Eos % (Auto) Lymph # [place] # Lymph # (Auto) [place] # (Auto) Seg Neutrophils % Seg Neuts % (Manual) Lymphocytes % (Manual) Seg Neutrophils # Seg Neutrophils # Man Lymphocytes # (Manual) Monocytes % (Manual) Eosinophils % (Manual) Monocytes # (Manual) Eosinophils # (Manual) D-Dimer Heparin Anti-Xa Level ABG pH POC ABG pCO2 POC ABG pO2 ABG pO2 59.6 L ABG HCO3 28.7 H ABG O2 Saturation 93.5 L ABG Base Excess 3.4 H ABG Hemoglobin 7.2 L ABG Oxyhemoglobin VBG pH Oxyhemoglobin 91.3 L Sodium Potassium Chloride Carbon Dioxide BUN Creatinine Glucose POC Glucose 194 H 137 H Lactic Acid Calcium Ferritin AST Alkaline Phosphatase Magnesium Lactate Dehydrogenase Total Creatine Kinase CK-MB (CK-2) C-Reactive Protein Total Protein Albumin Troponin T HDL Cholesterol Urine WBC (Auto) Urine Creatinine Urine Total Protein Coronavirus (PCR) Crossmatch 06/20/20 06/21/20 06/21/20 23:59 06:25 12:01 WBC RBC Hgb Hct MCHC RDW Lymph % (Auto) [place] % (Auto) Eos % (Auto) Lymph # [place] # Lymph # (Auto) [place] # (Auto) Seg Neutrophils % Seg Neuts % (Manual) Lymphocytes % (Manual) Seg Neutrophils # Seg Neutrophils # Man Lymphocytes # (Manual) Monocytes % (Manual) Eosinophils % (Manual) Monocytes # (Manual) Eosinophils # (Manual) D-Dimer Heparin Anti-Xa Level ABG pH POC ABG pCO2 POC ABG pO2 ABG pO2 ABG HCO3 ABG O2 Saturation ABG Base Excess ABG Hemoglobin ABG Oxyhemoglobin VBG pH Oxyhemoglobin Sodium Potassium Chloride Carbon Dioxide BUN Creatinine Glucose POC Glucose 156 H 177 H 195 H Lactic Acid Calcium Ferritin AST Alkaline Phosphatase Magnesium Lactate Dehydrogenase Total Creatine Kinase CK-MB (CK-2) C-Reactive Protein Total Protein Albumin Troponin T HDL Cholesterol Urine WBC (Auto) Urine Creatinine Urine Total Protein Coronavirus (PCR) Crossmatch 06/21/20 06/21/20 06/22/20 17:04 21:51 05:06 WBC RBC Hgb Hct MCHC RDW Lymph % (Auto) [place] % (Auto) Eos % (Auto) Lymph # [place] # Lymph # (Auto) [place] # (Auto) Seg Neutrophils % Seg Neuts % (Manual) Lymphocytes % (Manual) Seg Neutrophils # Seg Neutrophils # Man Lymphocytes # (Manual) Monocytes % (Manual) Eosinophils % (Manual) Monocytes # (Manual) Eosinophils # (Manual) D-Dimer Heparin Anti-Xa Level ABG pH POC ABG pCO2 POC ABG pO2 ABG pO2 ABG HCO3 ABG O2 Saturation ABG Base Excess ABG Hemoglobin ABG Oxyhemoglobin VBG pH Oxyhemoglobin Sodium Potassium Chloride Carbon Dioxide BUN Creatinine Glucose POC Glucose 156 H 154 H 167 H Lactic Acid Calcium Ferritin AST Alkaline Phosphatase Magnesium Lactate Dehydrogenase Total Creatine Kinase CK-MB (CK-2) C-Reactive Protein Total Protein Albumin Troponin T HDL Cholesterol Urine WBC (Auto) Urine Creatinine Urine Total Protein Coronavirus (PCR) Crossmatch 06/22/20 06/22/20 06/22/20 11:20 15:27 16:58 WBC RBC Hgb Hct MCHC RDW Lymph % (Auto) [place] % (Auto) Eos % (Auto) Lymph # [place] # Lymph # (Auto) [place] # (Auto) Seg Neutrophils % Seg Neuts % (Manual) Lymphocytes % (Manual) Seg Neutrophils # Seg Neutrophils # Man Lymphocytes # (Manual) Monocytes % (Manual) Eosinophils % (Manual) Monocytes # (Manual) Eosinophils # (Manual) D-Dimer Heparin Anti-Xa Level ABG pH 7.206 L POC ABG pCO2 79.9 H POC ABG pO2 ABG pO2 ABG HCO3 ABG O2 Saturation ABG Base Excess ABG Hemoglobin 8.3 L ABG Oxyhemoglobin VBG pH Oxyhemoglobin Sodium Potassium Chloride Carbon Dioxide BUN Creatinine Glucose POC Glucose 181 H 230 H Lactic Acid Calcium Ferritin AST Alkaline Phosphatase Magnesium Lactate Dehydrogenase Total Creatine Kinase CK-MB (CK-2) C-Reactive Protein Total Protein Albumin Troponin T HDL Cholesterol Urine WBC (Auto) Urine Creatinine Urine Total Protein Coronavirus (PCR) Crossmatch 06/22/20 06/23/20 06/23/20 22:26 05:49 05:49 WBC RBC 2.58 L Hgb 7.4 L Hct 23.2 L MCHC RDW 17.0 H Lymph % (Auto) [place] % (Auto) 11.2 H Eos % (Auto) Lymph # 1.0 L [place] # Lymph # (Auto) [place] # (Auto) Seg Neutrophils % Seg Neuts % (Manual) Lymphocytes % (Manual) Seg Neutrophils # Seg Neutrophils # Man Lymphocytes # (Manual) Monocytes % (Manual) Eosinophils % (Manual) Monocytes # (Manual) Eosinophils # (Manual) D-Dimer Heparin Anti-Xa Level ABG pH POC ABG pCO2 POC ABG pO2 ABG pO2 ABG HCO3 ABG O2 Saturation ABG Base Excess ABG Hemoglobin ABG Oxyhemoglobin VBG pH Oxyhemoglobin Sodium Potassium Chloride Carbon Dioxide BUN 68 H Creatinine 2.4 H Glucose 198 H POC Glucose 195 H Lactic Acid Calcium Ferritin AST Alkaline Phosphatase Magnesium Lactate Dehydrogenase Total Creatine Kinase CK-MB (CK-2) C-Reactive Protein Total Protein Albumin Troponin T HDL Cholesterol Urine WBC (Auto) Urine Creatinine Urine Total Protein Coronavirus (PCR) Crossmatch 06/23/20 06/23/20 06/23/20 05:50 12:29 12:34 WBC RBC Hgb Hct MCHC RDW Lymph % (Auto) [place] % (Auto) Eos % (Auto) Lymph # [place] # Lymph # (Auto) [place] # (Auto) Seg Neutrophils % Seg Neuts % (Manual) Lymphocytes % (Manual) Seg Neutrophils # Seg Neutrophils # Man Lymphocytes # (Manual) Monocytes % (Manual) Eosinophils % (Manual) Monocytes # (Manual) Eosinophils # (Manual) D-Dimer Heparin Anti-Xa Level ABG pH POC ABG pCO2 54.7 H POC ABG pO2 68.8 L ABG pO2 ABG HCO3 ABG O2 Saturation ABG Base Excess ABG Hemoglobin 9.8 L ABG Oxyhemoglobin 92.6 L VBG pH Oxyhemoglobin Sodium Potassium Chloride Carbon Dioxide BUN Creatinine Glucose POC Glucose 202 H 218 H Lactic Acid Calcium Ferritin AST Alkaline Phosphatase Magnesium Lactate Dehydrogenase Total Creatine Kinase CK-MB (CK-2) C-Reactive Protein Total Protein Albumin Troponin T HDL Cholesterol Urine WBC (Auto) Urine Creatinine Urine Total Protein Coronavirus (PCR) Crossmatch 06/23/20 06/23/20 06/24/20 16:02 22:22 01:06 WBC RBC Hgb Hct MCHC RDW Lymph % (Auto) [place] % (Auto) Eos % (Auto) Lymph # [place] # Lymph # (Auto) [place] # (Auto) Seg Neutrophils % Seg Neuts % (Manual) Lymphocytes % (Manual) Seg Neutrophils # Seg Neutrophils # Man Lymphocytes # (Manual) Monocytes % (Manual) Eosinophils % (Manual) Monocytes # (Manual) Eosinophils # (Manual) D-Dimer Heparin Anti-Xa Level ABG pH POC ABG pCO2 POC ABG pO2 ABG pO2 ABG HCO3 ABG O2 Saturation ABG Base Excess ABG Hemoglobin ABG Oxyhemoglobin VBG pH Oxyhemoglobin Sodium Potassium Chloride Carbon Dioxide BUN Creatinine Glucose POC Glucose 190 H 166 H 171 H Lactic Acid Calcium Ferritin AST Alkaline Phosphatase Magnesium Lactate Dehydrogenase Total Creatine Kinase CK-MB (CK-2) C-Reactive Protein Total Protein Albumin Troponin T HDL Cholesterol Urine WBC (Auto) Urine Creatinine Urine Total Protein Coronavirus (PCR) Crossmatch 06/24/20 06/24/20 06/24/20 04:48 05:35 11:48 WBC RBC Hgb Hct MCHC RDW Lymph % (Auto) [place] % (Auto) Eos % (Auto) Lymph # [place] # Lymph # (Auto) [place] # (Auto) Seg Neutrophils % Seg Neuts % (Manual) Lymphocytes % (Manual) Seg Neutrophils # Seg Neutrophils # Man Lymphocytes # (Manual) Monocytes % (Manual) Eosinophils % (Manual) Monocytes # (Manual) Eosinophils # (Manual) D-Dimer Heparin Anti-Xa Level ABG pH POC ABG pCO2 POC ABG pO2 ABG pO2 ABG HCO3 ABG O2 Saturation ABG Base Excess ABG Hemoglobin ABG Oxyhemoglobin VBG pH Oxyhemoglobin Sodium Potassium Chloride Carbon Dioxide BUN 75 H Creatinine 2.6 H Glucose 179 H POC Glucose 172 H 153 H Lactic Acid Calcium Ferritin AST Alkaline Phosphatase Magnesium Lactate Dehydrogenase Total Creatine Kinase CK-MB (CK-2) C-Reactive Protein Total Protein Albumin Troponin T HDL Cholesterol Urine WBC (Auto) Urine Creatinine Urine Total Protein Coronavirus (PCR) Crossmatch 06/24/20 06/24/20 06/25/20 16:38 21:52 12:00 WBC RBC Hgb Hct MCHC RDW Lymph % (Auto) [place] % (Auto) Eos % (Auto) Lymph # [place] # Lymph # (Auto) [place] # (Auto) Seg Neutrophils % Seg Neuts % (Manual) Lymphocytes % (Manual) Seg Neutrophils # Seg Neutrophils # Man Lymphocytes # (Manual) Monocytes % (Manual) Eosinophils % (Manual) Monocytes # (Manual) Eosinophils # (Manual) D-Dimer Heparin Anti-Xa Level ABG pH POC ABG pCO2 POC ABG pO2 ABG pO2 ABG HCO3 ABG O2 Saturation ABG Base Excess ABG Hemoglobin ABG Oxyhemoglobin VBG pH Oxyhemoglobin Sodium Potassium Chloride Carbon Dioxide BUN Creatinine Glucose POC Glucose 123 H 115 H 203 H Lactic Acid Calcium Ferritin AST Alkaline Phosphatase Magnesium Lactate Dehydrogenase Total Creatine Kinase CK-MB (CK-2) C-Reactive Protein Total Protein Albumin Troponin T HDL Cholesterol Urine WBC (Auto) Urine Creatinine Urine Total Protein Coronavirus (PCR) Crossmatch 06/25/20 06/25/20 06/25/20 15:43 16:37 23:02 WBC RBC Hgb Hct MCHC RDW Lymph % (Auto) [place] % (Auto) Eos % (Auto) Lymph # [place] # Lymph # (Auto) [place] # (Auto) Seg Neutrophils % Seg Neuts % (Manual) Lymphocytes % (Manual) Seg Neutrophils # Seg Neutrophils # Man Lymphocytes # (Manual) Monocytes % (Manual) Eosinophils % (Manual) Monocytes # (Manual) Eosinophils # (Manual) D-Dimer Heparin Anti-Xa Level ABG pH POC ABG pCO2 POC ABG pO2 ABG pO2 ABG HCO3 ABG O2 Saturation ABG Base Excess ABG Hemoglobin ABG Oxyhemoglobin VBG pH Oxyhemoglobin Sodium Potassium Chloride Carbon Dioxide BUN 71 H Creatinine 1.8 H Glucose 170 H POC Glucose 191 H 126 H Lactic Acid Calcium 8.2 L Ferritin AST Alkaline Phosphatase Magnesium Lactate Dehydrogenase Total Creatine Kinase CK-MB (CK-2) C-Reactive Protein Total Protein Albumin Troponin T HDL Cholesterol Urine WBC (Auto) Urine Creatinine Urine Total Protein Coronavirus (PCR) Crossmatch 06/26/20 06/26/20 06/26/20 06:34 06:34 09:27 WBC RBC 2.41 L Hgb 6.9 L Hct 21.5 L MCHC RDW 16.7 H Lymph % (Auto) 10.9 L [place] % (Auto) 9.6 H Eos % (Auto) Lymph # 0.7 L [place] # Lymph # (Auto) [place] # (Auto) Seg Neutrophils % 75.4 H Seg Neuts % (Manual) Lymphocytes % (Manual) Seg Neutrophils # Seg Neutrophils # Man Lymphocytes # (Manual) Monocytes % (Manual) Eosinophils % (Manual) Monocytes # (Manual) Eosinophils # (Manual) D-Dimer Heparin Anti-Xa Level ABG pH POC ABG pCO2 POC ABG pO2 ABG pO2 ABG HCO3 ABG O2 Saturation ABG Base Excess ABG Hemoglobin ABG Oxyhemoglobin VBG pH Oxyhemoglobin Sodium Potassium Chloride Carbon Dioxide BUN 77 H Creatinine 1.9 H Glucose 190 H POC Glucose Lactic Acid Calcium Ferritin AST Alkaline Phosphatase Magnesium Lactate Dehydrogenase Total Creatine Kinase CK-MB (CK-2) C-Reactive Protein Total Protein Albumin Troponin T HDL Cholesterol Urine WBC (Auto) Urine Creatinine Urine Total Protein Coronavirus (PCR) Crossmatch See Detail 06/26/20 06/26/20 06/26/20 12:15 16:28 17:28 WBC RBC Hgb Hct MCHC RDW Lymph % (Auto) [place] % (Auto) Eos % (Auto) Lymph # [place] # Lymph # (Auto) [place] # (Auto) Seg Neutrophils % Seg Neuts % (Manual) Lymphocytes % (Manual) Seg Neutrophils # Seg Neutrophils # Man Lymphocytes # (Manual) Monocytes % (Manual) Eosinophils % (Manual) Monocytes # (Manual) Eosinophils # (Manual) D-Dimer Heparin Anti-Xa Level ABG pH POC ABG pCO2 POC ABG pO2 ABG pO2 ABG HCO3 ABG O2 Saturation ABG Base Excess ABG Hemoglobin ABG Oxyhemoglobin VBG pH Oxyhemoglobin Sodium Potassium Chloride Carbon Dioxide BUN Creatinine Glucose POC Glucose 187 H 149 H 189 H Lactic Acid Calcium Ferritin AST Alkaline Phosphatase Magnesium Lactate Dehydrogenase Total Creatine Kinase CK-MB (CK-2) C-Reactive Protein Total Protein Albumin Troponin T HDL Cholesterol Urine WBC (Auto) Urine Creatinine Urine Total Protein Coronavirus (PCR) Crossmatch 06/26/20 06/26/20 06/26/20 18:30 18:30 18:30 WBC RBC 2.87 L Hgb 8.2 L Hct 25.9 L MCHC RDW 17.8 H Lymph % (Auto) [place] % (Auto) Eos % (Auto) Lymph # [place] # Lymph # (Auto) [place] # (Auto) Seg Neutrophils % Seg Neuts % (Manual) 83.0 H Lymphocytes % (Manual) 8.0 L Seg Neutrophils # Seg Neutrophils # Man Lymphocytes # (Manual) 0.6 L Monocytes % (Manual) Eosinophils % (Manual) Monocytes # (Manual) Eosinophils # (Manual) D-Dimer Heparin Anti-Xa Level ABG pH POC ABG pCO2 POC ABG pO2 ABG pO2 ABG HCO3 ABG O2 Saturation ABG Base Excess ABG Hemoglobin ABG Oxyhemoglobin VBG pH Oxyhemoglobin Sodium Potassium Chloride Carbon Dioxide BUN 80 H Creatinine 2.1 H Glucose 260 H POC Glucose Lactic Acid 4.30 H* Calcium 8.3 L Ferritin AST Alkaline Phosphatase Magnesium Lactate Dehydrogenase Total Creatine Kinase CK-MB (CK-2) C-Reactive Protein Total Protein Albumin Troponin T HDL Cholesterol Urine WBC (Auto) Urine Creatinine Urine Total Protein Coronavirus (PCR) Crossmatch 06/26/20 06/27/20 06/27/20 18:50 01:00 04:29 WBC RBC Hgb Hct MCHC RDW Lymph % (Auto) [place] % (Auto) Eos % (Auto) Lymph # [place] # Lymph # (Auto) [place] # (Auto) Seg Neutrophils % Seg Neuts % (Manual) Lymphocytes % (Manual) Seg Neutrophils # Seg Neutrophils # Man Lymphocytes # (Manual) Monocytes % (Manual) Eosinophils % (Manual) Monocytes # (Manual) Eosinophils # (Manual) D-Dimer Heparin Anti-Xa Level ABG pH 7.296 L POC ABG pCO2 POC ABG pO2 ABG pO2 116.5 H 200.5 H ABG HCO3 28.4 H ABG O2 Saturation 99.3 H ABG Base Excess 3.7 H ABG Hemoglobin 5.6 L ABG Oxyhemoglobin VBG pH Oxyhemoglobin Sodium Potassium Chloride Carbon Dioxide BUN Creatinine Glucose POC Glucose 123 H Lactic Acid Calcium Ferritin AST Alkaline Phosphatase Magnesium Lactate Dehydrogenase Total Creatine Kinase CK-MB (CK-2) C-Reactive Protein Total Protein Albumin Troponin T HDL Cholesterol Urine WBC (Auto) Urine Creatinine Urine Total Protein Coronavirus (PCR) Crossmatch 09/06/27/20 06/27/20 05:00 05:00 05:00 WBC RBC 2.75 L Hgb 7.9 L Hct 24.3 L MCHC RDW 17.1 H Lymph % (Auto) 8.5 L [place] % (Auto) 12.6 H Eos % (Auto) Lymph # 0.7 L [place] # 1.0 H Lymph # (Auto) [place] # (Auto) Seg Neutrophils % 77.5 H Seg Neuts % (Manual) Lymphocytes % (Manual) Seg Neutrophils # Seg Neutrophils # Man Lymphocytes # (Manual) Monocytes % (Manual) Eosinophils % (Manual) Monocytes # (Manual) Eosinophils # (Manual) D-Dimer Heparin Anti-Xa Level ABG pH POC ABG pCO2 POC ABG pO2 ABG pO2 ABG HCO3 ABG O2 Saturation ABG Base Excess ABG Hemoglobin ABG Oxyhemoglobin VBG pH Oxyhemoglobin Sodium Potassium Chloride Carbon Dioxide BUN 80 H Creatinine 2.0 H Glucose 129 H POC Glucose Lactic Acid 0.60 L Calcium 7.9 L Ferritin AST Alkaline Phosphatase Magnesium Lactate Dehydrogenase Total Creatine Kinase CK-MB (CK-2) C-Reactive Protein Total Protein Albumin Troponin T HDL Cholesterol Urine WBC (Auto) Urine Creatinine Urine Total Protein Coronavirus (PCR) Crossmatch 06/27/20 06/27/20 06/27/20 05:23 13:46 17:25 WBC RBC Hgb Hct MCHC RDW Lymph % (Auto) [place] % (Auto) Eos % (Auto) Lymph # [place] # Lymph # (Auto) [place] # (Auto) Seg Neutrophils % Seg Neuts % (Manual) Lymphocytes % (Manual) Seg Neutrophils # Seg Neutrophils # Man Lymphocytes # (Manual) Monocytes % (Manual) Eosinophils % (Manual) Monocytes # (Manual) Eosinophils # (Manual) D-Dimer Heparin Anti-Xa Level ABG pH POC ABG pCO2 POC ABG pO2 ABG pO2 ABG HCO3 ABG O2 Saturation ABG Base Excess ABG Hemoglobin ABG Oxyhemoglobin VBG pH Oxyhemoglobin Sodium Potassium Chloride Carbon Dioxide BUN Creatinine Glucose POC Glucose 109 H 158 H 162 H Lactic Acid Calcium Ferritin AST Alkaline Phosphatase Magnesium Lactate Dehydrogenase Total Creatine Kinase CK-MB (CK-2) C-Reactive Protein Total Protein Albumin Troponin T HDL Cholesterol Urine WBC (Auto) Urine Creatinine Urine Total Protein Coronavirus (PCR) Crossmatch 06/27/20 06/27/20 06/28/20 18:43 23:46 04:05 WBC RBC Hgb 7.7 L Hct 22.1 L MCHC RDW Lymph % (Auto) [place] % (Auto) Eos % (Auto) Lymph # [place] # Lymph # (Auto) [place] # (Auto) Seg Neutrophils % Seg Neuts % (Manual) Lymphocytes % (Manual) Seg Neutrophils # Seg Neutrophils # Man Lymphocytes # (Manual) Monocytes % (Manual) Eosinophils % (Manual) Monocytes # (Manual) Eosinophils # (Manual) D-Dimer Heparin Anti-Xa Level ABG pH POC ABG pCO2 POC ABG pO2 ABG pO2 102.7 H ABG HCO3 28.7 H ABG O2 Saturation ABG Base Excess 3.7 H ABG Hemoglobin ABG Oxyhemoglobin VBG pH Oxyhemoglobin Sodium Potassium Chloride Carbon Dioxide BUN Creatinine Glucose POC Glucose 142 H Lactic Acid Calcium Ferritin AST Alkaline Phosphatase Magnesium Lactate Dehydrogenase Total Creatine Kinase CK-MB (CK-2) C-Reactive Protein Total Protein Albumin Troponin T HDL Cholesterol Urine WBC (Auto) Urine Creatinine Urine Total Protein Coronavirus (PCR) Crossmatch 06/28/20 06/28/20 06/28/20 09:47 09:47 12:02 WBC RBC 2.53 L Hgb 7.4 L Hct 22.2 L MCHC RDW 16.8 H Lymph % (Auto) [place] % (Auto) 13.5 H Eos % (Auto) Lymph # 1.1 L [place] # 1.0 H Lymph # (Auto) [place] # (Auto) Seg Neutrophils % Seg Neuts % (Manual) Lymphocytes % (Manual) Seg Neutrophils # Seg Neutrophils # Man Lymphocytes # (Manual) Monocytes % (Manual) Eosinophils % (Manual) Monocytes # (Manual) Eosinophils # (Manual) D-Dimer Heparin Anti-Xa Level ABG pH POC ABG pCO2 POC ABG pO2 ABG pO2 ABG HCO3 ABG O2 Saturation ABG Base Excess ABG Hemoglobin ABG Oxyhemoglobin VBG pH Oxyhemoglobin Sodium Potassium Chloride Carbon Dioxide BUN 80 H Creatinine 1.5 H Glucose 139 H POC Glucose 169 H Lactic Acid Calcium 7.9 L Ferritin AST Alkaline Phosphatase Magnesium Lactate Dehydrogenase Total Creatine Kinase CK-MB (CK-2) C-Reactive Protein Total Protein 5.0 L Albumin 2.1 L Troponin T HDL Cholesterol Urine WBC (Auto) Urine Creatinine Urine Total Protein Coronavirus (PCR) Crossmatch 06/28/20 06/28/20 06/28/20 12:30 12:30 17:24 WBC RBC 2.38 L Hgb 7.3 L Hct 20.9 L MCHC 35 H RDW 16.7 H Lymph % (Auto) [place] % (Auto) Eos % (Auto) Lymph # [place] # Lymph # (Auto) [place] # (Auto) Seg Neutrophils % Seg Neuts % (Manual) Lymphocytes % (Manual) Seg Neutrophils # Seg Neutrophils # Man Lymphocytes # (Manual) Monocytes % (Manual) Eosinophils % (Manual) Monocytes # (Manual) Eosinophils # (Manual) D-Dimer Heparin Anti-Xa Level ABG pH POC ABG pCO2 POC ABG pO2 ABG pO2 ABG HCO3 ABG O2 Saturation ABG Base Excess ABG Hemoglobin ABG Oxyhemoglobin VBG pH Oxyhemoglobin Sodium Potassium Chloride Carbon Dioxide BUN 74 H Creatinine 1.5 H Glucose 143 H POC Glucose 173 H Lactic Acid Calcium 7.5 L Ferritin AST Alkaline Phosphatase Magnesium Lactate Dehydrogenase Total Creatine Kinase CK-MB (CK-2) C-Reactive Protein Total Protein Albumin Troponin T HDL Cholesterol Urine WBC (Auto) Urine Creatinine Urine Total Protein Coronavirus (PCR) Crossmatch 06/29/20 06/29/20 06/29/20 00:02 03:54 04:38 WBC RBC 2.55 L Hgb 7.3 L Hct 22.4 L MCHC RDW 16.4 H Lymph % (Auto) 13.3 L [place] % (Auto) 12.5 H Eos % (Auto) Lymph # 1.1 L [place] # 1.0 H Lymph # (Auto) [place] # (Auto) Seg Neutrophils % Seg Neuts % (Manual) Lymphocytes % (Manual) Seg Neutrophils # Seg Neutrophils # Man Lymphocytes # (Manual) Monocytes % (Manual) Eosinophils % (Manual) Monocytes # (Manual) Eosinophils # (Manual) D-Dimer Heparin Anti-Xa Level ABG pH POC ABG pCO2 POC ABG pO2 ABG pO2 ABG HCO3 26.9 H ABG O2 Saturation ABG Base Excess ABG Hemoglobin 6.9 L ABG Oxyhemoglobin VBG pH Oxyhemoglobin Sodium Potassium Chloride Carbon Dioxide BUN Creatinine Glucose POC Glucose 142 H Lactic Acid Calcium Ferritin AST Alkaline Phosphatase Magnesium Lactate Dehydrogenase Total Creatine Kinase CK-MB (CK-2) C-Reactive Protein Total Protein Albumin Troponin T HDL Cholesterol Urine WBC (Auto) Urine Creatinine Urine Total Protein Coronavirus (PCR) Crossmatch 09/06/29/20 06/29/20 04:38 05:38 12:25 WBC RBC Hgb Hct MCHC RDW Lymph % (Auto) [place] % (Auto) Eos % (Auto) Lymph # [place] # Lymph # (Auto) [place] # (Auto) Seg Neutrophils % Seg Neuts % (Manual) Lymphocytes % (Manual) Seg Neutrophils # Seg Neutrophils # Man Lymphocytes # (Manual) Monocytes % (Manual) Eosinophils % (Manual) Monocytes # (Manual) Eosinophils # (Manual) D-Dimer Heparin Anti-Xa Level ABG pH POC ABG pCO2 POC ABG pO2 ABG pO2 ABG HCO3 ABG O2 Saturation ABG Base Excess ABG Hemoglobin ABG Oxyhemoglobin VBG pH Oxyhemoglobin Sodium Potassium Chloride 107.8 H Carbon Dioxide BUN 72 H Creatinine 1.4 H Glucose 127 H POC Glucose 122 H 138 H Lactic Acid Calcium 7.4 L Ferritin AST Alkaline Phosphatase Magnesium Lactate Dehydrogenase Total Creatine Kinase CK-MB (CK-2) C-Reactive Protein Total Protein Albumin Troponin T HDL Cholesterol Urine WBC (Auto) Urine Creatinine Urine Total Protein Coronavirus (PCR) Crossmatch 06/29/20 06/29/20 06/29/20 14:45 14:45 14:45 WBC RBC Hgb Hct MCHC RDW Lymph % (Auto) [place] % (Auto) Eos % (Auto) Lymph # [place] # Lymph # (Auto) [place] # (Auto) Seg Neutrophils % Seg Neuts % (Manual) Lymphocytes % (Manual) Seg Neutrophils # Seg Neutrophils # Man Lymphocytes # (Manual) Monocytes % (Manual) Eosinophils % (Manual) Monocytes # (Manual) Eosinophils # (Manual) D-Dimer 2310.15 H Heparin Anti-Xa Level ABG pH POC ABG pCO2 POC ABG pO2 ABG pO2 ABG HCO3 ABG O2 Saturation ABG Base Excess ABG Hemoglobin ABG Oxyhemoglobin VBG pH Oxyhemoglobin Sodium Potassium Chloride Carbon Dioxide BUN Creatinine Glucose POC Glucose Lactic Acid Calcium Ferritin 223.6 H AST Alkaline Phosphatase Magnesium Lactate Dehydrogenase 367 H Total Creatine Kinase CK-MB (CK-2) C-Reactive Protein 3.60 H Total Protein Albumin Troponin T HDL Cholesterol Urine WBC (Auto) Urine Creatinine Urine Total Protein Coronavirus (PCR) Crossmatch 06/29/20 06/29/20 06/29/20 18:27 23:35 Unknown WBC RBC Hgb Hct MCHC RDW Lymph % (Auto) [place] % (Auto) Eos % (Auto) Lymph # [place] # Lymph # (Auto) [place] # (Auto) Seg Neutrophils % Seg Neuts % (Manual) Lymphocytes % (Manual) Seg Neutrophils # Seg Neutrophils # Man Lymphocytes # (Manual) Monocytes % (Manual) Eosinophils % (Manual) Monocytes # (Manual) Eosinophils # (Manual) D-Dimer Heparin Anti-Xa Level ABG pH POC ABG pCO2 POC ABG pO2 ABG pO2 ABG HCO3 ABG O2 Saturation ABG Base Excess ABG Hemoglobin ABG Oxyhemoglobin VBG pH Oxyhemoglobin Sodium Potassium Chloride Carbon Dioxide BUN Creatinine Glucose POC Glucose 112 H 140 H Lactic Acid Calcium Ferritin AST Alkaline Phosphatase Magnesium Lactate Dehydrogenase Total Creatine Kinase CK-MB (CK-2) C-Reactive Protein Total Protein Albumin Troponin T HDL Cholesterol Urine WBC (Auto) Urine Creatinine Urine Total Protein Coronavirus (PCR) Positive A Crossmatch 06/30/20 06/30/20 06/30/20 04:10 04:10 06:09 WBC RBC 2.44 L Hgb 7.1 L Hct 21.5 L MCHC RDW 16.6 H Lymph % (Auto) 11.0 L [place] % (Auto) 10.8 H Eos % (Auto) Lymph # 0.9 L [place] # 0.9 H Lymph # (Auto) [place] # (Auto) Seg Neutrophils % 73.7 H Seg Neuts % (Manual) Lymphocytes % (Manual) Seg Neutrophils # Seg Neutrophils # Man Lymphocytes # (Manual) Monocytes % (Manual) Eosinophils % (Manual) Monocytes # (Manual) Eosinophils # (Manual) D-Dimer Heparin Anti-Xa Level ABG pH POC ABG pCO2 POC ABG pO2 ABG pO2 ABG HCO3 ABG O2 Saturation ABG Base Excess ABG Hemoglobin ABG Oxyhemoglobin VBG pH Oxyhemoglobin Sodium Potassium Chloride 109.1 H Carbon Dioxide BUN 74 H Creatinine 1.3 H Glucose 191 H POC Glucose 187 H Lactic Acid Calcium 7.8 L Ferritin AST Alkaline Phosphatase Magnesium Lactate Dehydrogenase Total Creatine Kinase CK-MB (CK-2) C-Reactive Protein Total Protein Albumin Troponin T HDL Cholesterol Urine WBC (Auto) Urine Creatinine Urine Total Protein Coronavirus (PCR) Crossmatch 06/30/20 06/30/20 06/30/20 12:04 17:43 23:41 WBC RBC Hgb Hct MCHC RDW Lymph % (Auto) [place] % (Auto) Eos % (Auto) Lymph # [place] # Lymph # (Auto) [place] # (Auto) Seg Neutrophils % Seg Neuts % (Manual) Lymphocytes % (Manual) Seg Neutrophils # Seg Neutrophils # Man Lymphocytes # (Manual) Monocytes % (Manual) Eosinophils % (Manual) Monocytes # (Manual) Eosinophils # (Manual) D-Dimer Heparin Anti-Xa Level ABG pH POC ABG pCO2 POC ABG pO2 ABG pO2 ABG HCO3 ABG O2 Saturation ABG Base Excess ABG Hemoglobin ABG Oxyhemoglobin VBG pH Oxyhemoglobin Sodium Potassium Chloride Carbon Dioxide BUN Creatinine Glucose POC Glucose 112 H 177 H 143 H Lactic Acid Calcium Ferritin AST Alkaline Phosphatase Magnesium Lactate Dehydrogenase Total Creatine Kinase CK-MB (CK-2) C-Reactive Protein Total Protein Albumin Troponin T HDL Cholesterol Urine WBC (Auto) Urine Creatinine Urine Total Protein Coronavirus (PCR) Crossmatch 07/01/20 07/01/20 07/01/20 05:02 05:52 06:01 WBC 12.6 H RBC 2.95 L Hgb 8.2 L Hct 26.0 L MCHC RDW 16.9 H Lymph % (Auto) [place] % (Auto) Eos % (Auto) Lymph # [place] # Lymph # (Auto) [place] # (Auto) Seg Neutrophils % Seg Neuts % (Manual) Lymphocytes % (Manual) Seg Neutrophils # Seg Neutrophils # Man 8.6 H Lymphocytes # (Manual) Monocytes % (Manual) Eosinophils % (Manual) 5.0 H Monocytes # (Manual) Eosinophils # (Manual) 0.6 H D-Dimer Heparin Anti-Xa Level ABG pH POC ABG pCO2 POC ABG pO2 ABG pO2 ABG HCO3 ABG O2 Saturation ABG Base Excess ABG Hemoglobin 8.2 L ABG Oxyhemoglobin VBG pH Oxyhemoglobin Sodium Potassium Chloride Carbon Dioxide BUN Creatinine Glucose POC Glucose 129 H Lactic Acid Calcium Ferritin AST Alkaline Phosphatase Magnesium Lactate Dehydrogenase Total Creatine Kinase CK-MB (CK-2) C-Reactive Protein Total Protein Albumin Troponin T HDL Cholesterol Urine WBC (Auto) Urine Creatinine Urine Total Protein Coronavirus (PCR) Crossmatch 07/01/20 07/01/20 07/01/20 06:01 06:01 06:08 WBC RBC Hgb Hct MCHC RDW Lymph % (Auto) [place] % (Auto) Eos % (Auto) Lymph # [place] # Lymph # (Auto) [place] # (Auto) Seg Neutrophils % Seg Neuts % (Manual) Lymphocytes % (Manual) Seg Neutrophils # Seg Neutrophils # Man Lymphocytes # (Manual) Monocytes % (Manual) Eosinophils % (Manual) Monocytes # (Manual) Eosinophils # (Manual) D-Dimer Heparin Anti-Xa Level ABG pH POC ABG pCO2 POC ABG pO2 ABG pO2 ABG HCO3 ABG O2 Saturation ABG Base Excess ABG Hemoglobin ABG Oxyhemoglobin VBG pH Oxyhemoglobin Sodium 147 H Potassium Chloride 108.0 H Carbon Dioxide BUN 71 H Creatinine 1.3 H Glucose 193 H POC Glucose 192 H Lactic Acid Calcium 8.1 L Ferritin AST Alkaline Phosphatase Magnesium Lactate Dehydrogenase Total Creatine Kinase 300 H CK-MB (CK-2) C-Reactive Protein Total Protein Albumin Troponin T 0.067 H HDL Cholesterol 61 H Urine WBC (Auto) Urine Creatinine Urine Total Protein Coronavirus (PCR) Crossmatch 07/01/20 07/01/20 07/02/20 12:23 17:40 00:18 WBC RBC Hgb Hct MCHC RDW Lymph % (Auto) [place] % (Auto) Eos % (Auto) Lymph # [place] # Lymph # (Auto) [place] # (Auto) Seg Neutrophils % Seg Neuts % (Manual) Lymphocytes % (Manual) Seg Neutrophils # Seg Neutrophils # Man Lymphocytes # (Manual) Monocytes % (Manual) Eosinophils % (Manual) Monocytes # (Manual) Eosinophils # (Manual) D-Dimer Heparin Anti-Xa Level ABG pH POC ABG pCO2 POC ABG pO2 ABG pO2 ABG HCO3 ABG O2 Saturation ABG Base Excess ABG Hemoglobin ABG Oxyhemoglobin VBG pH Oxyhemoglobin Sodium Potassium Chloride Carbon Dioxide BUN Creatinine Glucose POC Glucose 111 H 135 H 145 H Lactic Acid Calcium Ferritin AST Alkaline Phosphatase Magnesium Lactate Dehydrogenase Total Creatine Kinase CK-MB (CK-2) C-Reactive Protein Total Protein Albumin Troponin T HDL Cholesterol Urine WBC (Auto) Urine Creatinine Urine Total Protein Coronavirus (PCR) Crossmatch 07/02/20 07/02/20 07/02/20 04:11 04:23 05:54 WBC RBC Hgb Hct MCHC RDW Lymph % (Auto) [place] % (Auto) Eos % (Auto) Lymph # [place] # Lymph # (Auto) [place] # (Auto) Seg Neutrophils % Seg Neuts % (Manual) Lymphocytes % (Manual) Seg Neutrophils # Seg Neutrophils # Man Lymphocytes # (Manual) Monocytes % (Manual) Eosinophils % (Manual) Monocytes # (Manual) Eosinophils # (Manual) D-Dimer Heparin Anti-Xa Level ABG pH POC ABG pCO2 POC ABG pO2 ABG pO2 ABG HCO3 ABG O2 Saturation ABG Base Excess ABG Hemoglobin 5.4 L ABG Oxyhemoglobin VBG pH Oxyhemoglobin Sodium Potassium Chloride 108.6 H Carbon Dioxide BUN 72 H Creatinine Glucose 112 H POC Glucose 137 H Lactic Acid Calcium 7.8 L Ferritin AST Alkaline Phosphatase Magnesium Lactate Dehydrogenase Total Creatine Kinase CK-MB (CK-2) C-Reactive Protein Total Protein Albumin Troponin T HDL Cholesterol Urine WBC (Auto) Urine Creatinine Urine Total Protein Coronavirus (PCR) Crossmatch 07/02/20 07/02/20 07/02/20 11:38 18:04 23:59 WBC RBC Hgb Hct MCHC RDW Lymph % (Auto) [place] % (Auto) Eos % (Auto) Lymph # [place] # Lymph # (Auto) [place] # (Auto) Seg Neutrophils % Seg Neuts % (Manual) Lymphocytes % (Manual) Seg Neutrophils # Seg Neutrophils # Man Lymphocytes # (Manual) Monocytes % (Manual) Eosinophils % (Manual) Monocytes # (Manual) Eosinophils # (Manual) D-Dimer Heparin Anti-Xa Level ABG pH POC ABG pCO2 POC ABG pO2 ABG pO2 ABG HCO3 ABG O2 Saturation ABG Base Excess ABG Hemoglobin ABG Oxyhemoglobin VBG pH Oxyhemoglobin Sodium Potassium Chloride Carbon Dioxide BUN Creatinine Glucose POC Glucose 128 H 135 H 156 H Lactic Acid Calcium Ferritin AST Alkaline Phosphatase Magnesium Lactate Dehydrogenase Total Creatine Kinase CK-MB (CK-2) C-Reactive Protein Total Protein Albumin Troponin T HDL Cholesterol Urine WBC (Auto) Urine Creatinine Urine Total Protein Coronavirus (PCR) Crossmatch 07/03/20 07/03/20 07/03/20 03:49 06:00 11:31 WBC RBC Hgb Hct MCHC RDW Lymph % (Auto) [place] % (Auto) Eos % (Auto) Lymph # [place] # Lymph # (Auto) [place] # (Auto) Seg Neutrophils % Seg Neuts % (Manual) Lymphocytes % (Manual) Seg Neutrophils # Seg Neutrophils # Man Lymphocytes # (Manual) Monocytes % (Manual) Eosinophils % (Manual) Monocytes # (Manual) Eosinophils # (Manual) D-Dimer Heparin Anti-Xa Level ABG pH POC ABG pCO2 POC ABG pO2 ABG pO2 121.0 H ABG HCO3 ABG O2 Saturation ABG Base Excess ABG Hemoglobin 8.5 L ABG Oxyhemoglobin VBG pH Oxyhemoglobin Sodium Potassium Chloride Carbon Dioxide BUN Creatinine Glucose POC Glucose 135 H 141 H Lactic Acid Calcium Ferritin AST Alkaline Phosphatase Magnesium Lactate Dehydrogenase Total Creatine Kinase CK-MB (CK-2) C-Reactive Protein Total Protein Albumin Troponin T HDL Cholesterol Urine WBC (Auto) Urine Creatinine Urine Total Protein Coronavirus (PCR) Crossmatch 07/03/20 07/03/20 07/04/20 16:07 17:40 05:49 WBC RBC Hgb Hct MCHC RDW Lymph % (Auto) [place] % (Auto) Eos % (Auto) Lymph # [place] # Lymph # (Auto) [place] # (Auto) Seg Neutrophils % Seg Neuts % (Manual) Lymphocytes % (Manual) Seg Neutrophils # Seg Neutrophils # Man Lymphocytes # (Manual) Monocytes % (Manual) Eosinophils % (Manual) Monocytes # (Manual) Eosinophils # (Manual) D-Dimer Heparin Anti-Xa Level ABG pH POC ABG pCO2 POC ABG pO2 ABG pO2 126.9 H ABG HCO3 ABG O2 Saturation ABG Base Excess ABG Hemoglobin 8.1 L ABG Oxyhemoglobin VBG pH Oxyhemoglobin Sodium Potassium Chloride Carbon Dioxide BUN Creatinine Glucose POC Glucose 120 H 128 H Lactic Acid Calcium Ferritin AST Alkaline Phosphatase Magnesium Lactate Dehydrogenase Total Creatine Kinase CK-MB (CK-2) C-Reactive Protein Total Protein Albumin Troponin T HDL Cholesterol Urine WBC (Auto) Urine Creatinine Urine Total Protein Coronavirus (PCR) Crossmatch 07/04/20 07/04/20 07/05/20 11:54 18:00 00:07 WBC RBC Hgb Hct MCHC RDW Lymph % (Auto) [place] % (Auto) Eos % (Auto) Lymph # [place] # Lymph # (Auto) [place] # (Auto) Seg Neutrophils % Seg Neuts % (Manual) Lymphocytes % (Manual) Seg Neutrophils # Seg Neutrophils # Man Lymphocytes # (Manual) Monocytes % (Manual) Eosinophils % (Manual) Monocytes # (Manual) Eosinophils # (Manual) D-Dimer Heparin Anti-Xa Level ABG pH POC ABG pCO2 POC ABG pO2 ABG pO2 ABG HCO3 ABG O2 Saturation ABG Base Excess ABG Hemoglobin ABG Oxyhemoglobin VBG pH Oxyhemoglobin Sodium Potassium Chloride Carbon Dioxide BUN Creatinine Glucose POC Glucose 168 H 133 H 121 H Lactic Acid Calcium Ferritin AST Alkaline Phosphatase Magnesium Lactate Dehydrogenase Total Creatine Kinase CK-MB (CK-2) C-Reactive Protein Total Protein Albumin Troponin T HDL Cholesterol Urine WBC (Auto) Urine Creatinine Urine Total Protein Coronavirus (PCR) Crossmatch 07/05/20 07/05/20 07/05/20 01:12 02:30 12:09 WBC RBC 2.35 L Hgb 6.9 L Hct 21.1 L MCHC RDW 16.8 H Lymph % (Auto) [place] % (Auto) Eos % (Auto) Lymph # [place] # Lymph # (Auto) [place] # (Auto) Seg Neutrophils % Seg Neuts % (Manual) 74.0 H Lymphocytes % (Manual) 12.0 L Seg Neutrophils # Seg Neutrophils # Man 8.0 H Lymphocytes # (Manual) Monocytes % (Manual) 9.0 H Eosinophils % (Manual) Monocytes # (Manual) 1.0 H Eosinophils # (Manual) D-Dimer Heparin Anti-Xa Level ABG pH POC ABG pCO2 POC ABG pO2 ABG pO2 ABG HCO3 ABG O2 Saturation ABG Base Excess ABG Hemoglobin ABG Oxyhemoglobin VBG pH Oxyhemoglobin Sodium Potassium Chloride Carbon Dioxide BUN Creatinine Glucose POC Glucose 132 H Lactic Acid Calcium Ferritin AST Alkaline Phosphatase Magnesium Lactate Dehydrogenase Total Creatine Kinase CK-MB (CK-2) C-Reactive Protein Total Protein Albumin Troponin T HDL Cholesterol Urine WBC (Auto) Urine Creatinine Urine Total Protein Coronavirus (PCR) Crossmatch See Detail 07/05/20 07/05/20 07/05/20 13:05 18:04 23:13 WBC RBC 2.57 L Hgb 7.7 L Hct 23.0 L MCHC RDW 16.9 H Lymph % (Auto) [place] % (Auto) Eos % (Auto) Lymph # [place] # Lymph # (Auto) [place] # (Auto) Seg Neutrophils % Seg Neuts % (Manual) Lymphocytes % (Manual) Seg Neutrophils # Seg Neutrophils # Man Lymphocytes # (Manual) Monocytes % (Manual) Eosinophils % (Manual) Monocytes # (Manual) Eosinophils # (Manual) D-Dimer Heparin Anti-Xa Level ABG pH 7.32 L POC ABG pCO2 POC ABG pO2 ABG pO2 78.3 L ABG HCO3 ABG O2 Saturation ABG Base Excess -2.6 L ABG Hemoglobin 7.3 L ABG Oxyhemoglobin VBG pH Oxyhemoglobin Sodium Potassium Chloride Carbon Dioxide BUN Creatinine Glucose POC Glucose 160 H Lactic Acid Calcium Ferritin AST Alkaline Phosphatase Magnesium Lactate Dehydrogenase Total Creatine Kinase CK-MB (CK-2) C-Reactive Protein Total Protein Albumin Troponin T HDL Cholesterol Urine WBC (Auto) Urine Creatinine Urine Total Protein Coronavirus (PCR) Crossmatch 07/05/20 07/05/20 07/06/20 23:13 23:43 13:20 WBC RBC Hgb Hct MCHC RDW Lymph % (Auto) [place] % (Auto) Eos % (Auto) Lymph # [place] # Lymph # (Auto) [place] # (Auto) Seg Neutrophils % Seg Neuts % (Manual) Lymphocytes % (Manual) Seg Neutrophils # Seg Neutrophils # Man Lymphocytes # (Manual) Monocytes % (Manual) Eosinophils % (Manual) Monocytes # (Manual) Eosinophils # (Manual) D-Dimer Heparin Anti-Xa Level ABG pH POC ABG pCO2 POC ABG pO2 ABG pO2 ABG HCO3 ABG O2 Saturation ABG Base Excess ABG Hemoglobin ABG Oxyhemoglobin VBG pH Oxyhemoglobin Sodium Potassium Chloride Carbon Dioxide 20 L BUN 80 H Creatinine 2.4 H D Glucose 124 H POC Glucose 121 H Lactic Acid Calcium 7.6 L Ferritin AST Alkaline Phosphatase Magnesium Lactate Dehydrogenase Total Creatine Kinase CK-MB (CK-2) C-Reactive Protein Total Protein Albumin Troponin T HDL Cholesterol Urine WBC (Auto) Urine Creatinine 33.3 H Urine Total Protein Coronavirus (PCR) Crossmatch 07/06/20 07/06/20 07/07/20 14:48 17:28 00:12 WBC RBC Hgb Hct MCHC RDW Lymph % (Auto) [place] % (Auto) Eos % (Auto) Lymph # [place] # Lymph # (Auto) [place] # (Auto) Seg Neutrophils % Seg Neuts % (Manual) Lymphocytes % (Manual) Seg Neutrophils # Seg Neutrophils # Man Lymphocytes # (Manual) Monocytes % (Manual) Eosinophils % (Manual) Monocytes # (Manual) Eosinophils # (Manual) D-Dimer Heparin Anti-Xa Level ABG pH POC ABG pCO2 POC ABG pO2 ABG pO2 ABG HCO3 ABG O2 Saturation ABG Base Excess ABG Hemoglobin ABG Oxyhemoglobin VBG pH Oxyhemoglobin Sodium 136 L Potassium 5.5 H Chloride Carbon Dioxide 19 L BUN 82 H Creatinine 2.5 H Glucose 113 H POC Glucose 133 H 154 H Lactic Acid Calcium 7.7 L Ferritin AST Alkaline Phosphatase Magnesium Lactate Dehydrogenase Total Creatine Kinase CK-MB (CK-2) C-Reactive Protein Total Protein Albumin Troponin T HDL Cholesterol Urine WBC (Auto) Urine Creatinine Urine Total Protein Coronavirus (PCR) Crossmatch 07/07/20 07/07/20 07/07/20 04:15 04:15 05:31 WBC RBC 2.28 L Hgb 6.8 L Hct 20.7 L MCHC RDW 16.8 H Lymph % (Auto) [place] % (Auto) Eos % (Auto) Lymph # [place] # Lymph # (Auto) [place] # (Auto) Seg Neutrophils % Seg Neuts % (Manual) Lymphocytes % (Manual) 13.0 L Seg Neutrophils # Seg Neutrophils # Man Lymphocytes # (Manual) 1.0 L Monocytes % (Manual) 11.0 H Eosinophils % (Manual) Monocytes # (Manual) 0.9 H Eosinophils # (Manual) D-Dimer Heparin Anti-Xa Level ABG pH POC ABG pCO2 POC ABG pO2 ABG pO2 ABG HCO3 ABG O2 Saturation ABG Base Excess ABG Hemoglobin ABG Oxyhemoglobin VBG pH Oxyhemoglobin Sodium Potassium Chloride Carbon Dioxide BUN Creatinine Glucose POC Glucose 135 H Lactic Acid Calcium Ferritin AST Alkaline Phosphatase Magnesium 2.50 H Lactate Dehydrogenase Total Creatine Kinase CK-MB (CK-2) C-Reactive Protein Total Protein Albumin Troponin T HDL Cholesterol Urine WBC (Auto) Urine Creatinine Urine Total Protein Coronavirus (PCR) Crossmatch 07/07/20 07/07/20 07/07/20 12:31 13:22 17:55 WBC RBC Hgb Hct MCHC RDW Lymph % (Auto) [place] % (Auto) Eos % (Auto) Lymph # [place] # Lymph # (Auto) [place] # (Auto) Seg Neutrophils % Seg Neuts % (Manual) Lymphocytes % (Manual) Seg Neutrophils # Seg Neutrophils # Man Lymphocytes # (Manual) Monocytes % (Manual) Eosinophils % (Manual) Monocytes # (Manual) Eosinophils # (Manual) D-Dimer Heparin Anti-Xa Level ABG pH POC ABG pCO2 POC ABG pO2 ABG pO2 ABG HCO3 ABG O2 Saturation ABG Base Excess ABG Hemoglobin ABG Oxyhemoglobin VBG pH Oxyhemoglobin Sodium Potassium 5.6 H Chloride Carbon Dioxide BUN 86 H Creatinine 2.9 H Glucose 127 H POC Glucose 131 H 136 H Lactic Acid Calcium 8.1 L Ferritin AST Alkaline Phosphatase Magnesium Lactate Dehydrogenase Total Creatine Kinase CK-MB (CK-2) C-Reactive Protein Total Protein Albumin Troponin T HDL Cholesterol Urine WBC (Auto) Urine Creatinine Urine Total Protein Coronavirus (PCR) Crossmatch 07/07/20 07/08/20 07/08/20 23:33 04:14 04:14 WBC RBC 3.28 L Hgb 9.7 L Hct 28.9 L D MCHC RDW 16.4 H Lymph % (Auto) 10.3 L [place] % (Auto) 10.0 H Eos % (Auto) Lymph # Cedar # Lymph # (Auto) 1.1 L [place] # (Auto) 1.1 H Seg Neutrophils % 77.2 H Seg Neuts % (Manual) Lymphocytes % (Manual) Seg Neutrophils # 8.2 H Seg Neutrophils # Man Lymphocytes # (Manual) Monocytes % (Manual) Eosinophils % (Manual) Monocytes # (Manual) Eosinophils # (Manual) D-Dimer Heparin Anti-Xa Level ABG pH POC ABG pCO2 POC ABG pO2 ABG pO2 ABG HCO3 ABG O2 Saturation ABG Base Excess ABG Hemoglobin ABG Oxyhemoglobin VBG pH Oxyhemoglobin Sodium 136 L Potassium Chloride Carbon Dioxide BUN 84 H Creatinine 2.8 H Glucose 109 H POC Glucose 159 H Lactic Acid Calcium 8.1 L Ferritin AST Alkaline Phosphatase Magnesium 2.50 H Lactate Dehydrogenase Total Creatine Kinase CK-MB (CK-2) C-Reactive Protein Total Protein Albumin Troponin T HDL Cholesterol Urine WBC (Auto) Urine Creatinine Urine Total Protein Coronavirus (PCR) Crossmatch 07/08/20 07/08/20 07/08/20 12:10 18:10 23:50 WBC RBC Hgb Hct MCHC RDW Lymph % (Auto) [place] % (Auto) Eos % (Auto) Lymph # Cedar # Lymph # (Auto) [place] # (Auto) Seg Neutrophils % Seg Neuts % (Manual) Lymphocytes % (Manual) Seg Neutrophils # Seg Neutrophils # Man Lymphocytes # (Manual) Monocytes % (Manual) Eosinophils % (Manual) Monocytes # (Manual) Eosinophils # (Manual) D-Dimer Heparin Anti-Xa Level ABG pH POC ABG pCO2 POC ABG pO2 ABG pO2 ABG HCO3 ABG O2 Saturation ABG Base Excess ABG Hemoglobin ABG Oxyhemoglobin VBG pH Oxyhemoglobin Sodium Potassium Chloride Carbon Dioxide BUN Creatinine Glucose POC Glucose 108 H 125 H 141 H Lactic Acid Calcium Ferritin AST Alkaline Phosphatase Magnesium Lactate Dehydrogenase Total Creatine Kinase CK-MB (CK-2) C-Reactive Protein Total Protein Albumin Troponin T HDL Cholesterol Urine WBC (Auto) Urine Creatinine Urine Total Protein Coronavirus (PCR) Crossmatch 07/09/20 07/09/20 07/09/20 05:39 11:57 17:56 WBC RBC Hgb Hct MCHC RDW Lymph % (Auto) [place] % (Auto) Eos % (Auto) Lymph # [place] # Lymph # (Auto) [place] # (Auto) Seg Neutrophils % Seg Neuts % (Manual) Lymphocytes % (Manual) Seg Neutrophils # Seg Neutrophils # Man Lymphocytes # (Manual) Monocytes % (Manual) Eosinophils % (Manual) Monocytes # (Manual) Eosinophils # (Manual) D-Dimer Heparin Anti-Xa Level ABG pH POC ABG pCO2 POC ABG pO2 ABG pO2 ABG HCO3 ABG O2 Saturation ABG Base Excess ABG Hemoglobin ABG Oxyhemoglobin VBG pH Oxyhemoglobin Sodium Potassium Chloride Carbon Dioxide BUN Creatinine Glucose POC Glucose 121 H 123 H 119 H Lactic Acid Calcium Ferritin AST Alkaline Phosphatase Magnesium Lactate Dehydrogenase Total Creatine Kinase CK-MB (CK-2) C-Reactive Protein Total Protein Albumin Troponin T HDL Cholesterol Urine WBC (Auto) Urine Creatinine Urine Total Protein Coronavirus (PCR) Crossmatch 07/10/20 07/10/20 07/10/20 00:29 05:50 10:41 WBC RBC 3.11 L Hgb 9.2 L Hct 27.6 L MCHC RDW 16.6 H Lymph % (Auto) [place] % (Auto) Eos % (Auto) Lymph # [place] # Lymph # (Auto) [place] # (Auto) Seg Neutrophils % Seg Neuts % (Manual) 78.0 H Lymphocytes % (Manual) 11.0 L Seg Neutrophils # Seg Neutrophils # Man Lymphocytes # (Manual) 1.0 L Monocytes % (Manual) Eosinophils % (Manual) Monocytes # (Manual) Eosinophils # (Manual) D-Dimer Heparin Anti-Xa Level ABG pH POC ABG pCO2 POC ABG pO2 ABG pO2 ABG HCO3 ABG O2 Saturation ABG Base Excess ABG Hemoglobin ABG Oxyhemoglobin VBG pH Oxyhemoglobin Sodium Potassium Chloride Carbon Dioxide BUN Creatinine Glucose POC Glucose 122 H 124 H Lactic Acid Calcium Ferritin AST Alkaline Phosphatase Magnesium Lactate Dehydrogenase Total Creatine Kinase CK-MB (CK-2) C-Reactive Protein Total Protein Albumin Troponin T HDL Cholesterol Urine WBC (Auto) Urine Creatinine Urine Total Protein Coronavirus (PCR) Crossmatch 07/10/20 07/10/20 07/10/20 10:41 12:25 18:10 WBC RBC Hgb Hct MCHC RDW Lymph % (Auto) [place] % (Auto) Eos % (Auto) Lymph # [place] # Lymph # (Auto) [place] # (Auto) Seg Neutrophils % Seg Neuts % (Manual) Lymphocytes % (Manual) Seg Neutrophils # Seg Neutrophils # Man Lymphocytes # (Manual) Monocytes % (Manual) Eosinophils % (Manual) Monocytes # (Manual) Eosinophils # (Manual) D-Dimer Heparin Anti-Xa Level ABG pH POC ABG pCO2 POC ABG pO2 ABG pO2 ABG HCO3 ABG O2 Saturation ABG Base Excess ABG Hemoglobin ABG Oxyhemoglobin VBG pH Oxyhemoglobin Sodium Potassium Chloride Carbon Dioxide BUN 85 H Creatinine 2.5 H Glucose 133 H POC Glucose 131 H 134 H Lactic Acid Calcium Ferritin AST Alkaline Phosphatase 131 H Magnesium Lactate Dehydrogenase Total Creatine Kinase CK-MB (CK-2) C-Reactive Protein Total Protein 5.2 L Albumin 1.6 L Troponin T HDL Cholesterol Urine WBC (Auto) Urine Creatinine Urine Total Protein Coronavirus (PCR) Crossmatch 07/11/20 07/11/20 07/11/20 00:28 05:57 12:14 WBC RBC Hgb Hct MCHC RDW Lymph % (Auto) [place] % (Auto) Eos % (Auto) Lymph # [place] # Lymph # (Auto) [place] # (Auto) Seg Neutrophils % Seg Neuts % (Manual) Lymphocytes % (Manual) Seg Neutrophils # Seg Neutrophils # Man Lymphocytes # (Manual) Monocytes % (Manual) Eosinophils % (Manual) Monocytes # (Manual) Eosinophils # (Manual) D-Dimer Heparin Anti-Xa Level ABG pH POC ABG pCO2 POC ABG pO2 ABG pO2 ABG HCO3 ABG O2 Saturation ABG Base Excess ABG Hemoglobin ABG Oxyhemoglobin VBG pH Oxyhemoglobin Sodium Potassium Chloride Carbon Dioxide BUN Creatinine Glucose POC Glucose 140 H 148 H 147 H Lactic Acid Calcium Ferritin AST Alkaline Phosphatase Magnesium Lactate Dehydrogenase Total Creatine Kinase CK-MB (CK-2) C-Reactive Protein Total Protein Albumin Troponin T HDL Cholesterol Urine WBC (Auto) Urine Creatinine Urine Total Protein Coronavirus (PCR) Crossmatch 07/11/20 07/11/20 07/12/20 17:28 23:49 05:14 WBC RBC 2.78 L Hgb 8.5 L Hct 25.3 L MCHC RDW 16.7 H Lymph % (Auto) [place] % (Auto) Eos % (Auto) Lymph # [place] # Lymph # (Auto) [place] # (Auto) Seg Neutrophils % Seg Neuts % (Manual) 81.0 H Lymphocytes % (Manual) 6.0 L Seg Neutrophils # Seg Neutrophils # Man Lymphocytes # (Manual) 0.6 L Monocytes % (Manual) 8.0 H Eosinophils % (Manual) Monocytes # (Manual) Eosinophils # (Manual) D-Dimer Heparin Anti-Xa Level ABG pH POC ABG pCO2 POC ABG pO2 ABG pO2 ABG HCO3 ABG O2 Saturation ABG Base Excess ABG Hemoglobin ABG Oxyhemoglobin VBG pH Oxyhemoglobin Sodium Potassium Chloride Carbon Dioxide BUN Creatinine Glucose POC Glucose 175 H 114 H Lactic Acid Calcium Ferritin AST Alkaline Phosphatase Magnesium Lactate Dehydrogenase Total Creatine Kinase CK-MB (CK-2) C-Reactive Protein Total Protein Albumin Troponin T HDL Cholesterol Urine WBC (Auto) Urine Creatinine Urine Total Protein Coronavirus (PCR) Crossmatch 07/12/20 07/12/20 07/12/20 05:14 05:44 11:32 WBC RBC Hgb Hct MCHC RDW Lymph % (Auto) [place] % (Auto) Eos % (Auto) Lymph # [place] # Lymph # (Auto) [place] # (Auto) Seg Neutrophils % Seg Neuts % (Manual) Lymphocytes % (Manual) Seg Neutrophils # Seg Neutrophils # Man Lymphocytes # (Manual) Monocytes % (Manual) Eosinophils % (Manual) Monocytes # (Manual) Eosinophils # (Manual) D-Dimer Heparin Anti-Xa Level ABG pH POC ABG pCO2 POC ABG pO2 ABG pO2 ABG HCO3 ABG O2 Saturation ABG Base Excess ABG Hemoglobin ABG Oxyhemoglobin VBG pH Oxyhemoglobin Sodium Potassium Chloride Carbon Dioxide BUN 79 H Creatinine 2.2 H Glucose 131 H POC Glucose 116 H 132 H Lactic Acid Calcium Ferritin AST Alkaline Phosphatase Magnesium Lactate Dehydrogenase Total Creatine Kinase CK-MB (CK-2) C-Reactive Protein Total Protein Albumin Troponin T HDL Cholesterol Urine WBC (Auto) Urine Creatinine Urine Total Protein Coronavirus (PCR) Crossmatch 07/12/20 07/13/20 07/13/20 17:53 00:18 04:53 WBC RBC 2.86 L Hgb 8.4 L Hct 25.7 L MCHC RDW 16.8 H Lymph % (Auto) [place] % (Auto) Eos % (Auto) Lymph # [place] # Lymph # (Auto) [place] # (Auto) Seg Neutrophils % Seg Neuts % (Manual) 84.0 H Lymphocytes % (Manual) 7.0 L Seg Neutrophils # Seg Neutrophils # Man Lymphocytes # (Manual) 0.6 L Monocytes % (Manual) Eosinophils % (Manual) Monocytes # (Manual) Eosinophils # (Manual) D-Dimer Heparin Anti-Xa Level ABG pH POC ABG pCO2 POC ABG pO2 ABG pO2 ABG HCO3 ABG O2 Saturation ABG Base Excess ABG Hemoglobin ABG Oxyhemoglobin VBG pH Oxyhemoglobin Sodium Potassium Chloride Carbon Dioxide BUN Creatinine Glucose POC Glucose 155 H 162 H Lactic Acid Calcium Ferritin AST Alkaline Phosphatase Magnesium Lactate Dehydrogenase Total Creatine Kinase CK-MB (CK-2) C-Reactive Protein Total Protein Albumin Troponin T HDL Cholesterol Urine WBC (Auto) Urine Creatinine Urine Total Protein Coronavirus (PCR) Crossmatch 07/13/20 07/13/20 07/13/20 04:53 06:14 12:50 WBC RBC Hgb Hct MCHC RDW Lymph % (Auto) [place] % (Auto) Eos % (Auto) Lymph # [place] # Lymph # (Auto) [place] # (Auto) Seg Neutrophils % Seg Neuts % (Manual) Lymphocytes % (Manual) Seg Neutrophils # Seg Neutrophils # Man Lymphocytes # (Manual) Monocytes % (Manual) Eosinophils % (Manual) Monocytes # (Manual) Eosinophils # (Manual) D-Dimer Heparin Anti-Xa Level ABG pH POC ABG pCO2 POC ABG pO2 ABG pO2 ABG HCO3 ABG O2 Saturation ABG Base Excess ABG Hemoglobin ABG Oxyhemoglobin VBG pH Oxyhemoglobin Sodium 136 L Potassium Chloride Carbon Dioxide BUN 78 H Creatinine 2.0 H Glucose 130 H POC Glucose 141 H 146 H Lactic Acid Calcium Ferritin AST Alkaline Phosphatase Magnesium Lactate Dehydrogenase Total Creatine Kinase CK-MB (CK-2) C-Reactive Protein Total Protein Albumin Troponin T HDL Cholesterol Urine WBC (Auto) Urine Creatinine Urine Total Protein Coronavirus (PCR) Crossmatch 07/13/20 07/14/20 07/14/20 18:27 00:22 05:43 WBC RBC Hgb Hct MCHC RDW Lymph % (Auto) [place] % (Auto) Eos % (Auto) Lymph # [place] # Lymph # (Auto) [place] # (Auto) Seg Neutrophils % Seg Neuts % (Manual) Lymphocytes % (Manual) Seg Neutrophils # Seg Neutrophils # Man Lymphocytes # (Manual) Monocytes % (Manual) Eosinophils % (Manual) Monocytes # (Manual) Eosinophils # (Manual) D-Dimer Heparin Anti-Xa Level ABG pH POC ABG pCO2 POC ABG pO2 ABG pO2 ABG HCO3 ABG O2 Saturation ABG Base Excess ABG Hemoglobin ABG Oxyhemoglobin VBG pH Oxyhemoglobin Sodium Potassium Chloride Carbon Dioxide BUN Creatinine Glucose POC Glucose 149 H 157 H 169 H Lactic Acid Calcium Ferritin AST Alkaline Phosphatase Magnesium Lactate Dehydrogenase Total Creatine Kinase CK-MB (CK-2) C-Reactive Protein Total Protein Albumin Troponin T HDL Cholesterol Urine WBC (Auto) Urine Creatinine Urine Total Protein Coronavirus (PCR) Crossmatch 07/14/20 07/14/20 07/14/20 08:04 12:12 17:23 WBC RBC Hgb Hct MCHC RDW Lymph % (Auto) [place] % (Auto) Eos % (Auto) Lymph # [place] # Lymph # (Auto) [place] # (Auto) Seg Neutrophils % Seg Neuts % (Manual) Lymphocytes % (Manual) Seg Neutrophils # Seg Neutrophils # Man Lymphocytes # (Manual) Monocytes % (Manual) Eosinophils % (Manual) Monocytes # (Manual) Eosinophils # (Manual) D-Dimer Heparin Anti-Xa Level ABG pH POC ABG pCO2 POC ABG pO2 ABG pO2 ABG HCO3 ABG O2 Saturation ABG Base Excess ABG Hemoglobin ABG Oxyhemoglobin VBG pH Oxyhemoglobin Sodium Potassium Chloride Carbon Dioxide BUN Creatinine Glucose POC Glucose 185 H 138 H Lactic Acid Calcium Ferritin AST Alkaline Phosphatase Magnesium Lactate Dehydrogenase Total Creatine Kinase CK-MB (CK-2) C-Reactive Protein Total Protein Albumin Troponin T HDL Cholesterol Urine WBC (Auto) Urine Creatinine Urine Total Protein Coronavirus (PCR) Positive A Crossmatch 07/15/20 07/15/20 07/15/20 00:04 06:06 12:00 WBC RBC Hgb Hct MCHC RDW Lymph % (Auto) [place] % (Auto) Eos % (Auto) Lymph # [place] # Lymph # (Auto) [place] # (Auto) Seg Neutrophils % Seg Neuts % (Manual) Lymphocytes % (Manual) Seg Neutrophils # Seg Neutrophils # Man Lymphocytes # (Manual) Monocytes % (Manual) Eosinophils % (Manual) Monocytes # (Manual) Eosinophils # (Manual) D-Dimer Heparin Anti-Xa Level ABG pH POC ABG pCO2 POC ABG pO2 ABG pO2 ABG HCO3 ABG O2 Saturation ABG Base Excess ABG Hemoglobin ABG Oxyhemoglobin VBG pH Oxyhemoglobin Sodium Potassium Chloride Carbon Dioxide BUN Creatinine Glucose POC Glucose 121 H 140 H 137 H Lactic Acid Calcium Ferritin AST Alkaline Phosphatase Magnesium Lactate Dehydrogenase Total Creatine Kinase CK-MB (CK-2) C-Reactive Protein Total Protein Albumin Troponin T HDL Cholesterol Urine WBC (Auto) Urine Creatinine Urine Total Protein Coronavirus (PCR) Crossmatch 07/15/20 07/15/20 07/16/20 17:53 23:53 05:26 WBC RBC Hgb Hct MCHC RDW Lymph % (Auto) [place] % (Auto) Eos % (Auto) Lymph # [place] # Lymph # (Auto) [place] # (Auto) Seg Neutrophils % Seg Neuts % (Manual) Lymphocytes % (Manual) Seg Neutrophils # Seg Neutrophils # Man Lymphocytes # (Manual) Monocytes % (Manual) Eosinophils % (Manual) Monocytes # (Manual) Eosinophils # (Manual) D-Dimer Heparin Anti-Xa Level ABG pH POC ABG pCO2 POC ABG pO2 ABG pO2 ABG HCO3 ABG O2 Saturation ABG Base Excess ABG Hemoglobin ABG Oxyhemoglobin VBG pH Oxyhemoglobin Sodium Potassium Chloride Carbon Dioxide BUN Creatinine Glucose POC Glucose 161 H 156 H 152 H Lactic Acid Calcium Ferritin AST Alkaline Phosphatase Magnesium Lactate Dehydrogenase Total Creatine Kinase CK-MB (CK-2) C-Reactive Protein Total Protein Albumin Troponin T HDL Cholesterol Urine WBC (Auto) Urine Creatinine Urine Total Protein Coronavirus (PCR) Crossmatch Allied health notes reviewed: nursing
--- NOTE | 2020-07-16 12:26 | Progress Note ---
Assessment and Plan Cultures: Coronavirus PCR 05/28/2020: Positive 05/28/2020 blood culture: no growth 05/28/2020 tracheal aspirate: Usual respiratory bobo 05/28/2020 urine culture: No growth 06/03/2020 urine culture: No growth 06/09/2020 tracheal aspirate Klebsiella pneumoniae 06/28/2020 sputum culture positive for Klebsiella 06/28/2020 blood cultures no growth today 06/29/2020 SARS COV2 PCR positive A/P: 64-year-old female with hypertension, diastolic CHF, pulmonary hypertension, diabetes, obesity hypoventilation syndrome, recent COVID pneumonia, was admitted to the emergency room after she called EMS due to difficulty breathing. On the way to the hospital, patient developed cardiac arrest and was treated as per ACLS protocol: #Cardiac arrest on 07/01/2020. #Sepsis on 06/27/2020: Resolved. After asystolic cardiac arrest on 06/26/2028. #Bilateral pneumonia: Secondary to COVID-19. Completed 5 days of IV Remdesivir 06/02/2020, completed steroids. ?Healthcare associated pneumonia, repeat sputum Klebsiella. Chest x-ray worsening infiltrates. Completed abx. #Acute hypoxic respiratory failure: On mechanical ventilation. Minimal vent settings. #HF: EF 45-50% #Mild LFT elevation: likely from COVID-19. #Severe constipation: Status post manual disimpaction. #Encephalopathy: ? Post cardiac arrest. Recs: - continue supportive care, awaits trach/PEG - continue off antibiotics - persistent COVID-19 PCR positivity is very likely from non-viable viral RNA, patient's original COVID test positivity was 05/28/2020. She is unlikely to be infectious at this time ID will sign off. Please call with questions. Mallory Wright MD, FACP [facility] ([facility] C: [phone] O: [phone] F: [phone] Subjective Date of service: 07/16/20 Principal diagnosis: Ac hypoxemic resp failure; COVID-19; pneumonia; CHF; Pulm HTN; OHS; DM II Interval history: Patient remains intubated, on the vent, minimal settings. No fever. Objective - Exam Narrative Exam: Physical Exam (reviewed in chart due to PPE conservation) Constitutional: intubated, sedated, on the vent Head, Ears, Nose: normocephalic, atraumatic Eyes: limited due to PPE conservation strategy Neck: intubated Oral: intubated Cardiovascular: limited due to PPE conservation strategy Respiratory: limited due to PPE conservation strategy GI: limited due to PPE conservation strategy Musculoskeletal: limited due to PPE conservation strategy Skin: limited due to PPE conservation strategy Hem/Lymphatic: limited due to PPE conservation strategy Psych: no agitation Neurological: sedated, intubated, on the vent, exam limited - Constitutional Vitals: Vital Signs Temp Pulse Resp BP Pulse Ox 98.0 F 72 17 149/65 98 07/16/20 12:00 07/16/20 11:48 07/16/20 11:48 07/16/20 11:48 07/16/20 11:48 Temperature -Last 24 Hours Temperature 98.0 F Temperature 98.1 F Temperature 99.7 F Temperature 99.2 F Temperature 98.8 F Temperature 98.5 F - Labs CBC & Chem 7: 07/13/20 04:53 07/13/20 04:53 Labs: Abnormal lab results 07/15/20 07/15/20 07/16/20 Range/Units 17:53 23:53 05:26 POC Glucose 161 H 156 H 152 H (70-105)
[2020-07-16] MEDS: INSULIN GLARGINE 100 UNITS/ML SUB-Q SCH (22:56)
[2020-07-17] MEDS: SENNOSIDES ORAL LIQD 8.8 MG/5 ML ORAL LIQD FEEDTUBE SCH ×3 (01:23→22:05)
[2020-07-17] MEDS: INSULIN LISPRO 100 UNIT/ML VIAL 3 mL SUB-Q SCH ×4 (01:44→18:18)
[2020-07-17] MEDS: cloNIDine 0.2 MG TAB PO SCH ×3 (02:00→18:36)
[2020-07-17] MEDS: HEPARIN 5,000 UNIT/1 ML VIAL SUB-Q SCH ×3 (06:16→22:03)
--- NOTE | 2020-07-17 08:32 | Progress Note ---
Assessment and Plan Assessment and plan: --Acute hypoxemic respiratory failure; vent dependent intubated on admission, extubated on 06/12/20 then placed on high flow o2 patient developed another respiratory arrest on 06/26 - reintubated Patient not tolerating weaning parameters CC following, Surgery evaluated the patient for trach and PEG COVID-19 test positive x3, trach and PEG pending neuro evaluation --s/p cardiopulmonary arrest on admission, 06/26 and 07/01, s/p CPR per ACLS protocol, refer to code sheet --Possible anoxic brain injury, neurology consulted, check MRI brain, EEG -- Hypertension; moderate control Increase hydralazine dose to 75 mg 3 times a day Continue amlodipine, coreg, clonidine and hydralazine --Worsening renal function; creatinine 2.4-2.5-2.9 Vasomotor nephropathy, gentle hydration Avoid nephrotoxins, monitor renal function Reconsult nephrology --Rectal bleeding; Hb dropped from 8.2 -6.9-7.7-6.8 today, Transfused 1 unit PRBC Closely monitor H&H, GI following, no plans of endoscopy --Acute blood loss anemia; Received 2 units of PRBC transfusion, Hb improved from 6.9-7.7-6.8 Patient received 2 units of PRBC in the past, transfuse 1 additional unit today Closely monitor H&H --Severe sepsis persistently positive for COVID-19 and Klebsiella pneumoniae ID following, completed treatment for COVID-19 and completed antibiotic --COVID-19 b/l PNA Completed remdesivir on 06/02 Completed dexamethasone - Last dose 06/07 ID recs appreciated. COVID 19 test positive x 3 during this admission --Superficial left cephalic vein DVT/elevated D-dimers[COVID 19] Patient initially started on heparin drip from 05/29/20 D-dimers improved [phone] Heparin drip discontinued treated with Eliquis 5 mg twice a day for 1 week[per ID] stop date 06/26/2020 -- Acute toxic metabolic encephalopathy, POA likely from sepsis and s/p cardiac arrest with possible anoxic injury -- Acute renal failure: likely ATN avoid nephrotoxins, reconsult nephrology if no improvement --Klebsiella pneumonia: ID evaluated completed second round of 5 days of cefepime on 07/04/2020 --Acute on chronic systolic heart failure Cardiology following. Ef 45% -- Coffee ground emesis -Stress ulcers Possible stress ulcers, On PPI H/H again dropped - transfuse GI evaluated --Transaminitis. Etiology likely from COVID-19. cont to monitor -- DVT prophylaxis Eliquis, SCD to bilateral lower extremities while in bed -- Advance care planning Patient is critically ill with multiple medical problems Poor prognosis, family updated and requesting full code The high probability of a clinically significant, sudden or life threatening det erioration of the [CVS, renal, respiratory, ARMATURE STRAIGHTENER] system(s) required my full and direct attention, intervention and personal management. The aggregate critical care time was [31] minutes. This time is in addition to time spent performing reported procedures but includes the following: [x] Data Review and interpretation [x] Patient assessment and monitoring of vital signs [x] Documentation [x] Medication orders and management 07/11/2020. Patient currently on mechanical ventilation AC/PRVC with rate of 12, tidal volume 450, FiO2 30% and PEEP of 6 07/12/2020. Patient placed on CPAP with pressure support of 10 and tolerating well. Continue PSB trials as tolerated. 07/13/2020. Patient currently with AC mode rate 12, tidal volume 450, FiO2 30% and PEEP of 6. Surgery has been consulted for trach and PEG placement. Recall nephrology for renal insufficiency. 07/14/20; surgery evaluated for trach and PEG , pending call with test which is is positive today COVID-19 test positive x3 since admission 07/16; trach and PEG pending neuro evaluation 07/17; vent dependent, trach PEG pending neuro evaluation, pending MRI EEG study[already ordered] History Interval history: I have seen and examined the patient at the bedside Patient's chart and medications reviewed Patient remains intubated on ventilatory support Unable to wean. Unresponsive Vital signs noted Hospitalist Physical - Constitutional Vitals: Temp Pulse Resp BP Pulse Ox 99.7 F H 81 18 150/59 98 07/17/20 03:32 07/17/20 08:00 07/17/20 08:00 07/17/20 08:00 07/17/20 08:00 General appearance: Present: mild distress, well-nourished, obese (Morbidly obese), other (Intubated on ventilatory support) - EENT Eyes: Present: PERRL, EOM intact - Neck Neck: Present: supple, normal ROM - Respiratory Respiratory effort: normal Respiratory: bilateral: diminished, rhonchi, negative: rales, wheezing - Cardiovascular Rhythm: regular Heart Sounds: Present: S1 & S2 - Extremities Extremities: no ischemia, No edema - Abdominal General gastrointestinal: soft, non-tender, non-distended, normal bowel sounds - Integumentary Integumentary: Present: clear, warm - Psychiatric Psychiatric: other (Intubated on vent) - Neurologic Neurologic: other (Intubated on vent) HEART Score - HEART Score Troponin: Troponin T 0.067 ng/mL (0.00-0.029) H 07/01/20 06:01 Results - Labs CBC & Chem 7: 07/13/20 04:53 07/13/20 04:53 Labs: Laboratory Last Values WBC 8.5 K/mm3 (4.5-11.0) 07/13/20 04:53 RBC 2.86 M/mm3 (3.65-5.03) L 07/13/20 04:53 Hgb 8.4 gm/dl (10.1-14.3) L 07/13/20 04:53 Hct 25.7 % (30.3-42.9) L 07/13/20 04:53 MCV 90 fl (79-97) 07/13/20 04:53 MCH 30 pg (28-32) 07/13/20 04:53 MCHC 33 % (30-34) 07/13/20 04:53 RDW 16.8 % (13.2-15.2) H 07/13/20 04:53 Plt Count 298 K/mm3 (140-440) 07/13/20 04:53 Lymph % (Auto) 10.3 % (13.4-35.0) L 07/08/20 04:14 [place] % (Auto) 10.0 % (0.0-7.3) H 07/08/20 04:14 Eos % (Auto) 2.0 % (0.0-4.3) 07/08/20 04:14 Baso % (Auto) 0.5 % (0.0-1.8) 07/08/20 04:14 Lymph # (Auto) 1.1 K/mm3 (1.2-5.4) L 07/08/20 04:14 [place] # (Auto) 1.1 K/mm3 (0.0-0.8) H 07/08/20 04:14 Eos # (Auto) 0.2 K/mm3 (0.0-0.4) 07/08/20 04:14 Baso # (Auto) 0.1 K/mm3 (0.0-0.1) 07/08/20 04:14 Add Manual Diff Complete 07/13/20 04:53 Total Counted 100 07/13/20 04:53 Seg Neutrophils % 77.2 % (40.0-70.0) H 07/08/20 04:14 Seg Neuts % (Manual) 84.0 % (40.0-70.0) H 07/13/20 04:53 Band Neutrophils % 1.0 % 07/13/20 04:53 Lymphocytes % (Manual) 7.0 % (13.4-35.0) L 07/13/20 04:53 Reactive Lymphs % (Man) 0 % 07/13/20 04:53 Monocytes % (Manual) 5.0 % (0.0-7.3) 07/13/20 04:53 Eosinophils % (Manual) 1.0 % (0.0-4.3) 07/13/20 04:53 Basophils % (Manual) 0 % (0.0-1.8) 07/13/20 04:53 Metamyelocytes % 2.0 % 07/13/20 04:53 Myelocytes % 0 % 07/13/20 04:53 Promyelocytes % 0 % 07/13/20 04:53 Blast Cells % 0 % 07/13/20 04:53 Nucleated RBC % Not Reportable 07/13/20 04:53 Seg Neutrophils # 8.2 K/mm3 (1.8-7.7) H 07/08/20 04:14 Seg Neutrophils # Man 7.1 K/mm3 (1.8-7.7) 07/13/20 04:53 Band Neutrophils # 0.1 K/mm3 07/13/20 04:53 Lymphocytes # (Manual) 0.6 K/mm3 (1.2-5.4) L 07/13/20 04:53 Abs React Lymphs (Man) 0.0 K/mm3 07/13/20 04:53 Monocytes # (Manual) 0.4 K/mm3 (0.0-0.8) 07/13/20 04:53 Eosinophils # (Manual) 0.1 K/mm3 (0.0-0.4) 07/13/20 04:53 Basophils # (Manual) 0.0 K/mm3 (0.0-0.1) 07/13/20 04:53 Metamyelocytes # 0.2 K/mm3 07/13/20 04:53 Myelocytes # 0.0 K/mm3 07/13/20 04:53 Promyelocytes # 0.0 K/mm3 07/13/20 04:53 Blast Cells # 0.0 K/mm3 07/13/20 04:53 WBC Morphology Not Reportable 07/13/20 04:53 Hypersegmented Neuts Not Reportable 07/13/20 04:53 Hyposegmented Neuts Not Reportable 07/13/20 04:53 Hypogranular Neuts Not Reportable 07/13/20 04:53 Smudge Cells Not Reportable 07/13/20 04:53 Toxic Granulation Not Reportable 07/13/20 04:53 Toxic Vacuolation Not Reportable 07/13/20 04:53 Dohle Bodies Not Reportable 07/13/20 04:53 Pelger-Huet Anomaly Not Reportable 07/13/20 04:53 Sanjuanita Rods Not Reportable 07/13/20 04:53 Platelet Estimate Consistent w auto 07/13/20 04:53 Clumped Platelets Not Reportable 07/13/20 04:53 Plt Clumps, EDTA Not Reportable 07/13/20 04:53 Large Platelets Not Reportable 07/13/20 04:53 Giant Platelets Not Reportable 07/13/20 04:53 Platelet Satelliting Not Reportable 07/13/20 04:53 Plt Morphology Comment Not Reportable 07/13/20 04:53 RBC Morphology Not Reportable 07/13/20 04:53 Dimorphic RBCs Not Reportable 07/13/20 04:53 Polychromasia Not Reportable 07/13/20 04:53 Hypochromasia Not Reportable 07/13/20 04:53 Poikilocytosis Not Reportable 07/13/20 04:53 Anisocytosis 1+ 07/13/20 04:53 Microcytosis Not Reportable 07/13/20 04:53 Macrocytosis Not Reportable 07/13/20 04:53 Spherocytes Not Reportable 07/13/20 04:53 Pappenheimer Bodies Not Reportable 07/13/20 04:53 Sickle Cells Not Reportable 07/13/20 04:53 Target Cells Not Reportable 07/13/20 04:53 Tear Drop Cells Not Reportable 07/13/20 04:53 Ovalocytes Not Reportable 07/13/20 04:53 Helmet Cells Not Reportable 07/13/20 04:53 Jones-Geyser Bodies Not Reportable 07/13/20 04:53 [place] Rings Not Reportable 07/13/20 04:53 [place] Cells Not Reportable 07/13/20 04:53 Bite Cells Not Reportable 07/13/20 04:53 Crenated Cell Not Reportable 07/13/20 04:53 Elliptocytes Not Reportable 07/13/20 04:53 Acanthocytes (Spur) Not Reportable 07/13/20 04:53 Rouleaux Not Reportable 07/13/20 04:53 Hemoglobin C Crystals Not Reportable 07/13/20 04:53 Schistocytes Not Reportable 07/13/20 04:53 Malaria parasites Not Reportable 07/13/20 04:53 Kev Bodies Not Reportable 07/13/20 04:53 Hem Pathologist Commnt No 07/13/20 04:53 PT 14.2 Sec. (12.2-14.9) 05/29/20 15:10 INR 1.08 (0.87-1.13) 05/29/20 15:10 APTT 27.2 Sec. (24.2-36.6) 05/29/20 15:10 D-Dimer 2310.15 ng/mlDDU (0-234) H 06/29/20 14:45 Heparin Anti-Xa Level 0.34 U.I./ml (0.3-0.7) 06/19/20 10:46 ABG pH 7.32 pH Units (7.350-7.450) L 07/05/20 13:05 POC ABG pCO2 35.8 mmHg (32.0-48.0) 07/01/20 05:02 ABG pCO2 47.0 mm Hg 07/05/20 13:05 ABG Oxyhemoglobin 92.6 (94-98) L 06/23/20 12:34 POC ABG pO2 90.8 mmHg (83-108) 07/01/20 05:02 ABG pO2 78.3 mm Hg (80.0-90.0) L 07/05/20 13:05 POC ABG HCO3 22.1 07/01/20 05:02 ABG HCO3 23.4 mmol/L (20.0-26.0) 07/05/20 13:05 ABG O2 Saturation 96.1 % (95.0-99.0) 07/05/20 13:05 ABG O2 Content 0.3 (0.0-44) 07/05/20 13:05 POC ABG Base Excess -2.3 07/01/20 05:02 ABG Base Excess -2.6 mmol/L (-2.0-3.0) L 07/05/20 13:05 ABG Hemoglobin 7.3 gm/dl (12.0-16.0) L 07/05/20 13:05 ABG Carboxyhemoglobin 1.7 % (0.0-5.0) 07/05/20 13:05 ABG Methemoglobin 0.2 % (0.0-1.5) 07/05/20 13:05 VBG pH 7.152 (7.320-7.420) L* 05/28/20 13:47 Carboxyhemoglobin 0.5 (0.5-1.5) 06/23/20 12:34 Oxyhemoglobin 97.4 % (95.0-99.0) 07/05/20 13:05 FiO2 30 % 07/05/20 13:05 Sodium 136 mmol/L (137-145) L 07/13/20 04:53 Potassium 5.0 mmol/L (3.6-5.0) 07/13/20 04:53 Chloride 102.4 mmol/L (98-107) 07/13/20 04:53 Carbon Dioxide 27 mmol/L (22-30) 07/13/20 04:53 Anion Gap 12 mmol/L 07/13/20 04:53 BUN 78 mg/dL (7-17) H 07/13/20 04:53 Creatinine 2.0 mg/dL (0.6-1.2) H 07/13/20 04:53 Estimated GFR 25 ml/min 07/13/20 04:53 BUN/Creatinine Ratio 39 % 07/13/20 04:53 Glucose 130 mg/dL (65-100) H 07/13/20 04:53 POC Glucose 100 (70-105) 07/17/20 05:28 Lactic Acid 0.60 mmol/L (0.7-2.0) L 06/27/20 05:00 Calcium 8.7 mg/dL (8.4-10.2) 07/13/20 04:53 Ferritin 223.6 ng/mL (10.0-200.0) H 06/29/20 14:45 Magnesium 2.50 mg/dL (1.7-2.3) H 07/08/20 04:14 Lactate Dehydrogenase 367 units/L (91-180) H 06/29/20 14:45 Total Bilirubin < 0.20 mg/dL (0.1-1.2) 07/10/20 10:41 AST 25 units/L (5-40) 07/10/20 10:41 ALT 11 units/L (7-56) 07/10/20 10:41 Alkaline Phosphatase 131 units/L (35-129) H 07/10/20 10:41 C-Reactive Protein 3.60 mg/dL (0.00-1.30) H 06/29/20 14:45 Total Creatine Kinase 300 units/L (30-135) H 07/01/20 06:01 CK-MB (CK-2) 2.0 ng/mL (0.0-4.0) 07/01/20 06:01 CK-MB (CK-2) Rel Index 0.6 (0-4) 07/01/20 06:01 Troponin T 0.067 ng/mL (0.00-0.029) H 07/01/20 06:01 Total Protein 5.2 g/dL (6.3-8.2) L 07/10/20 10:41 Albumin 1.6 g/dL (3.9-5) L 07/10/20 10:41 Albumin/Globulin Ratio 0.4 % 07/10/20 10:41 Triglycerides 142 mg/dL (2-149) 07/01/20 06:01 Cholesterol 137 mg/dL (50-199) 07/01/20 06:01 LDL Cholesterol Direct 62 mg/dL (50-130) 07/01/20 06:01 HDL Cholesterol 61 mg/dL (40-59) H 07/01/20 06:01 Cholesterol/HDL Ratio 2.24 % 07/01/20 06:01 Procalcitonin 0.18 ng/mL (<0.15) 07/14/20 04:55 Urine Color Yellow (Yellow) 06/06/20 04:00 Urine Turbidity Cloudy (Clear) 06/06/20 04:00 Urine pH 5.0 (5.0-7.0) 06/06/20 04:00 Ur Specific [place] 1.012 (1.003-1.030) 06/06/20 04:00 Urine Protein 100 mg/dl mg/dL (Negative) 06/06/20 04:00 Urine Glucose (UA) 50 mg/dL (Negative) 06/06/20 04:00 Urine Ketones Neg mg/dL (Negative) 06/06/20 04:00 Urine Blood Sm (Negative) 06/06/20 04:00 Urine Nitrite Neg (Negative) 06/06/20 04:00 Urine Bilirubin Neg (Negative) 06/06/20 04:00 Urine Urobilinogen < 2.0 mg/dL (<2.0) 06/06/20 04:00 Ur Leukocyte Esterase Neg (Negative) 06/06/20 04:00 Urine WBC (Auto) 15.0 /HPF (0.0-6.0) H 06/06/20 04:00 Urine RBC (Auto) 23.0 /HPF (0.0-6.0) 06/06/20 04:00 U Epithel Cells (Auto) 8.0 /HPF (0-13.0) 06/06/20 04:00 Urine Bacteria (Auto) 2+ /HPF (Negative) 06/06/20 04:00 Amorphous Crystals 1+ 06/06/20 04:00 Hyaline Casts 16 /LPF 06/06/20 04:00 Urine Mucus 2+ /HPF 06/06/20 04:00 Urine Yeast (Budding) 2+ /HPF 06/03/20 Unknown Urine Creatinine 33.3 mg/dL (0.1-20.0) H 07/06/20 13:20 Urine Sodium 21 mmol/L 07/06/20 13:20 Urine Total Protein 196 mg/dL (5-11.8) H 06/06/20 04:00 Nasal Screen MRSA (PCR) Negative (Negative) 06/29/20 08:30 Coronavirus (PCR) Positive (Negative) A 07/14/20 08:04 Blood Type A POSITIVE 07/05/20 02:30 Antibody Screen Negative 07/05/20 02:30 Crossmatch See Detail 07/05/20 02:30 - Diagnostic Impressions Diagnostic Impressions: Echocardiogram Limited Views 05/29/20 13:52 Transthoracic Echocardiogram Indication: Pulm Embolus BP: 169/76 HR: 85 Conclusions *Limited study for RV size post cardiopulmonar arrest. *RV is only slightly dilated, no significant difference from prior echo 05/13/2020. *Global left ventricular systolic function is at the lower limits of normal. *The estimated ejection fraction is 45-50%. *Mild to moderate concentric left ventricular hypertrophy is observed. *The left and right atria are both mild to moderately dilated. Findings Left Ventricle: The left ventricular chamber size is mildly dilated. Mild to moderate concentric left ventricular hypertrophy is observed. Global left ventricular systolic function is at the lower limits of normal. The estimated ejection fraction is 45-50%. Left Atrium: The left atrium is mild to moderately dilated. Right Ventricle: The right ventricle is slightly dilated. Right Atrium: The right atrium is mild to moderately dilated. Aortic Valve: The aortic valve leaflets are moderately thickened. Mitral Valve: There is mitral annular calcification. The mitral valve leaflets are moderately thickened. Tricuspid Valve: The tricuspid valve leaflets are mildly thickened. Pericardium: A trivial pericardial effusion is visualized. NDUM: 05/29/20 1808 Amended Report Transthoracic Echocardiogram Indication: Pulm Embolus BP: 169/76 HR: 85 Conclusions *Limited study for RV size post cardiopulmonary arrest. *RV is only slightly dilated, no significant difference from prior echo 05/13/2020. *Global left ventricular systolic function is at the lower limits of normal. *The estimated ejection fraction is 45-50%. *Mild to moderate concentric left ventricular hypertrophy is observed. *The left and right atria are both mild to moderately dilated. Findings Left Ventricle: The left ventricular chamber size is mildly dilated. Mild to moderate concentric left ventricular hypertrophy is observed. Global left ventricular systolic function is at the lower limits of normal. The estimated ejection fraction is 45-50%. Left Atrium: The left atrium is mild to moderately dilated. Right Ventricle: The right ventricle is slightly dilated. Right Atrium: The right atrium is mild to moderately dilated. Aortic Valve: The aortic valve leaflets are moderately thickened. Mitral Valve: There is mitral annular calcification. The mitral valve leaflets are moderately thickened. Tricuspid Valve: The tricuspid valve leaflets are mildly thickened. Pericardium: A trivial pericardial effusion is visualized. Helm/IV: Voiding Method External Female Catheter IV Catheter Type [Left Wrist] INT / Saline Lock IV Catheter Type [Left Upper Mid-line arm] IV Catheter Type [Right CVL Internal Jugular] IV Catheter Type [Right Hand] INT / Saline Lock IV Catheter Type [Right Wrist] Not found on patient IV Catheter Type [Left Hand] INT / Saline Lock IV Catheter Type [Left INT / Saline Lock Antecubital] IV Catheter Type [Right Peripheral IV Forearm] IV Catheter Type [Left Leg] Intra-osseous Active Medications - Current Medications Current Medications: Generic Name Dose Route Start Last Admin Trade Name Freq PRN Reason Stop Dose Admin Acetaminophen 650 mg 06/09/20 10:57 06/29/20 21:18 Tylenol FEEDTUBE 650 mg Q6H PRN Administration Fever >101 Amlodipine Besylate 10 mg 06/02/20 11:00 07/16/20 10:37 Amlodipine PO 10 mg DAILY NELSON Administration Lipase/Protease/Amylase 1 each 05/29/20 13:39 07/07/20 10:[address] 10,500 Unit FEEDTUBE 1 each PRN PRN Administration For Clogged Feeding Tube Carvedilol 12.5 mg 06/03/20 10:00 07/16/20 22:55 Coreg PO 12.5 mg BID NELSON Administration Clonidine HCl 0.2 mg 07/16/20 10:00 07/17/20 02:00 Catapres PO Not Given Q8H NELSON Glycopyrrolate 2 mg 06/09/20 14:00 07/16/20 20:50 Glycopyrrolate PO 2 mg TID NELSON Administration Heparin Sodium (Porcine) 5,000 unit 06/30/20 14:00 07/17/20 06:16 Heparin SUB-Q Not Given Q8HR NELSON Hydralazine HCl 100 mg 07/14/20 14:00 07/16/20 20:51 Apresoline PO 100 mg TID NELSON Administration Hydrophilic Ointment 1 applic 05/28/20 13:49 Vaseline Lip Therapy TP Q2HR PRN Dry Lips Insulin Glargine 10 units 06/08/20 22:00 07/16/20 22:56 Lantus SUB-Q 10 units QHS [facility] Administration Insulin Human Lispro 0 unit 05/29/20 18:00 07/17/20 06:08 Humalog SUB-Q Not Given Q6H [facility] Protocol Labetalol HCl 20 mg 06/03/20 09:00 07/16/20 06:52 Labetalol IV 20 mg Q4H PRN Administration HYPERTENSION Lansoprazole 30 mg 06/05/20 22:00 07/16/20 22:55 Prevacid Solutab FEEDTUBE 30 mg BID [facility] Administration Levetiracetam 500 mg 06/16/20 11:00 07/16/20 22:55 Keppra PO 500 mg BID [facility] Administration Modafinil 100 mg 07/02/20 20:00 07/16/20 10:38 Provigil PO 100 mg DAILY [facility] Administration Multi-Ingred Cream/Lotion/Oil/Oint 1 applic 05/28/20 13:49 Artificial Tears Ophth Oint OU Q4HR PRN Dry Eye(s) Ondansetron HCl 4 mg 06/02/20 09:00 06/09/20 16:48 Zofran IV 4 mg Q8H PRN Administration Nausea And Vomiting Senna 17.6 mg 06/03/20 10:00 07/17/20 01:23 Senokot FEEDTUBE Not Given BID NELSON Simple Syrup 15 ml 05/29/20 13:39 Simple Syrup FEEDTUBE PRN PRN Hypoglycemia Simple Syrup 30 ml 05/29/20 13:39 Simple Syrup FEEDTUBE PRN PRN Hypoglycemia Sodium Bicarbonate 325 mg 05/29/20 13:39 07/07/20 10:36 Sodium Bicarbonate FEEDTUBE 325 mg PRN PRN Administration For Clogged Feeding Tube Sodium Chloride 10 ml 05/28/20 22:00 07/17/20 06:07 Sodium Chloride Flush Syringe 10 Ml IV Not Given BID NELSON Sodium Chloride 10 ml 05/28/20 19:08 06/16/20 17:50 Sodium Chloride Flush Syringe 10 Ml IV 10 ml PRN PRN Administration LINE FLUSH Nutrition/Malnutrition Assess - Dietary Evaluation Nutrition/Malnutrition Findings: Nutrition Notes Start: 05/29/20 11:45 Freq: Status: Active Protocol: Document 07/09/20 11:47 [email or web address] (Rec: 07/09/20 11:53 [email or web address]) Co-Sign 07/09/20 11:47 MK Nutrition Notes Initial or Follow up Reassessment Current Diagnosis Acute Kidney Injury,Diabetes, Heart Failure,Respiratory Failure Other Pertinent Diagnosis COVID-19 (+), Pulmonary edema, dysphagia Current Diet Glucerna 1.2 at 55ml/hr Labs/Tests Na 136 BUN 84 Cr 2.8 BG 109 Mg 2.5 Pertinent Medications Reviewed Height 5 ft 6 in Weight 123 kg [place] Body Weight (kg) 59.09 BMI 43.7 Weight Status Morbidly Obese Subjective/Other Information F/U TF tolerance. Per RN, pt tolerating TF and running at goal rate. Percent of energy/protein needs met: 99%/53% Burn Absent Trauma Absent Current % PO Negligible Minimum of two criteria No physical signs of malnutrition Fluid Accumulation Mild (non-severe) #1 Nutrition Diagnosis Inadequate oral intake Diagnosis Progress(for reassessment Continues documentation) Is patient on ventilator? Yes Is Patient Ambulatory and/or Out of Bed No REE-([facility]-confined to bed) 2172.576 Kcal/Kg value to use for calculation 13 Approximate Energy Requirements Using 1599 kcal/Kg Calculation Used for Recommendations Kcal/kg Additional Notes Protein needs up to 148g (up to 2.5g/kg IBW) Fluid needs 1ml/kcal Nutrition Intervention Change Diet Order: Change TF Nutrition Support: Nepro at 40ml/hr Flush 150ml q4h Kcal 1,728 Protein (gm) 78 Fluid (mL) 697 Goal #1 TF tolerance Goal #2 TF to meet at least 65%-70% energy and 80% protein needs Anticipated Discharge Needs: Unable to determine at this time Follow-Up By: 07/20/20 Additional Comments F/U for TF tolerance
[2020-07-17] MEDS: levETIRAcetam 500 MG/5 ML ORAL LIQD PO SCH (09:01)
[2020-07-17] MEDS: GLYCOPYRROLATE 2 MG TAB PO SCH ×3 (09:01→22:05)
[2020-07-17] MEDS: amLODIPine 10 MG TAB PO SCH (09:02)
[2020-07-17] MEDS: carvediloL 12.5 MG TAB PO SCH ×2 (09:03→22:00)
[2020-07-17] MEDS: hydrALAZINE 100 MG TAB PO SCH ×3 (09:03→22:19)
[2020-07-17] MEDS: MODAFINIL 100 MG TAB PO SCH (09:20)
[2020-07-17] MEDS: LANSOPRAZOLE 30 MG SOLUTAB FEEDTUBE SCH ×2 (09:23→22:04)
--- NOTE | 2020-07-17 11:50 | Progress Note ---
Assessment and Plan Acute hypoxemic respiratory failure on MVS Coronavirus-19 infection. Bilateral pulmonary infiltrates, bilateral pneumonia plus likely element of Pulmonary edema. Bilateral pulmonary edema. Bilateral pleural effusions. History of congestive heart failure. Morbid obesity. History of pulmonary hypertension. History of hypertension. Diabetes. Obesity hypoventilation syndrome. Elevated serum inflammatory markers to include D-dimers and LDH levels. Hyperkalemia at presentation. Metabolic acidosis. Oropharyngeal dysphagia. (AMS remains rate limiting factor to safe extubation; she will need a tracheo stomy) - surgery evaluation ongoing for trach +/- PEG (await negative COVID PCR result) - continue azotemia management per nephrology rec's (slow improvement) - continue enteral nutrition at goal rate as tolerated - continue care as below otherwise while following mental status; - GI evaluation ongoing - continue Modafinil re: lethargy / somnolence - continue daytime PSV trials as tolerated - Daily SAT and SBT assessment as tolerated - continue to wean supplemental oxygen for target O2 sat's > 90% acutely - VAP bundle addressed - continue lung protective strategies - continue bronchodilators with pulmonary hygiene per RT - wean per pulmonary driven protocols otherwise - continue accuchecks resumed with glycemic control per SSI (While critically ill target blood glucose of 140-180 mg/dL; avoid hypoglycemia) - sedation prn for target RASS 0 to -1 - continue to avoid benzodiazepine's, reduce the possibility of delirium - AB's per ID rec's (following clinically of AB's at this time) - prn analgesia per CPOT score - Maintenance of sleep-wake cycle, avoid delirium - continue enteral nutritional support at goal rate as tolerated - G.I. & VTE prophylaxis with heparin & famotidine - PT/OT/ROM exercises - continue mobility protocols for pressure ulcer prophylaxis - Monitor hemodynamics closely - continue other care per attending / other consultants - discharge planning ongoing concurrently (LTAC evaluation is appropriate) .... Re-evaluate in am & prn CONDITION: CRITICAL PROGNOSIS: GUARDED CODE STATUS: FULL CODE The high probability of a clinically significant, sudden or life-threatening deterioration of the [respiratory, cardiovascular, GI & neurologic] system(s) required my full and direct attention, intervention and personal management. The aggregate critical care time was [34] minutes without overlap. Time includes spent on; [x] Data Review and interpretation [x] Patient assessment and monitoring of vital signs [x] Documentation [x] Medication orders and management Subjective Date of service: 07/17/20 Principal diagnosis: Ac hypoxemic resp failure; COVID-19; pneumonia; CHF; Pulm HTN; OHS; DM II Interval history: Patient is seen today for: Ac hypoxemic resp failure; Coronavirus-19 infection; pneumonia; Pulmonary edema; Bilateral pleural effusions; CHF; Morbid obesity; pulmonary hypertension; OHS; DM II Seen and examined at bedside; 24hour events reviewed; nursing and respiratory care staff consulted; no adverse overnight events reported to me; resting peacefully in bed; remains on MVS; awaiting negative COVID resulty prior to trach / PEG placement Objective Vital Signs - 12hr 07/17/20 07/17/20 07/17/20 00:00 00:17 00:30 Temperature 98.8 F Pulse Rate 78 77 75 Pulse Rate [ 78 From Monitor] Respiratory 12 16 Rate Blood Pressure 137/50 146/55 150/54 O2 Sat by Pulse 95 97 97 Oximetry 07/17/20 07/17/20 07/17/20 01:00 01:31 02:00 Temperature Pulse Rate 77 77 78 Pulse Rate [ From Monitor] Respiratory 16 25 H 39 H Rate Blood Pressure 142/63 152/50 159/56 O2 Sat by Pulse 97 97 97 Oximetry 07/17/20 07/17/20 07/17/20 02:30 03:00 03:30 Temperature Pulse Rate 76 79 79 Pulse Rate [ From Monitor] Respiratory 17 19 16 Rate Blood Pressure 153/53 154/55 165/57 O2 Sat by Pulse 97 97 97 Oximetry 07/17/20 07/17/20 07/17/20 03:32 04:00 04:13 Temperature 99.7 F H Pulse Rate 79 80 Pulse Rate [ 70 From Monitor] Respiratory 18 Rate Blood Pressure 152/56 152/56 O2 Sat by Pulse 95 97 Oximetry 07/17/20 07/17/20 07/17/20 04:30 05:00 05:30 Temperature Pulse Rate 78 79 79 Pulse Rate [ From Monitor] Respiratory 15 16 17 Rate Blood Pressure 148/55 147/57 140/59 O2 Sat by Pulse 98 98 98 Oximetry 07/17/20 07/17/20 07/17/20 06:00 06:30 07:00 Temperature Pulse Rate 79 79 79 Pulse Rate [ From Monitor] Respiratory 18 17 18 Rate Blood Pressure 144/53 147/54 147/54 O2 Sat by Pulse 98 98 98 Oximetry 07/17/20 07/17/20 07/17/20 07:30 08:00 08:20 Temperature 99.2 F Pulse Rate 80 81 84 Pulse Rate [ From Monitor] Respiratory 20 18 Rate Blood Pressure 148/57 150/59 152/57 O2 Sat by Pulse 98 98 97 Oximetry 07/17/20 07/17/20 07/17/20 08:30 09:00 09:02 Temperature Pulse Rate 81 84 83 Pulse Rate [ From Monitor] Respiratory 21 28 H Rate Blood Pressure 152/57 145/59 149/59 O2 Sat by Pulse 97 96 Oximetry 07/17/20 07/17/20 07/17/20 09:03 09:22 09:30 Temperature Pulse Rate 84 84 84 Pulse Rate [ From Monitor] Respiratory 26 H Rate Blood Pressure 149/59 145/59 137/56 O2 Sat by Pulse 96 Oximetry 07/17/20 07/17/20 07/17/20 10:00 10:30 11:00 Temperature Pulse Rate 84 85 84 Pulse Rate [ From Monitor] Respiratory 30 H 24 29 H Rate Blood Pressure 130/53 144/50 154/43 O2 Sat by Pulse 95 83 L 95 Oximetry Constitutional: appears uncomfortable, other (elderly looking female with mildly increased resp effort at rest) Eyes: non-icteric ENT: oropharynx dry, other (ETT 23-24 cm AYAN) Neck: supple, no lymphadenopathy, no JVD, other (large neck circumference) Effort: mildly labored Ascultation: Bilateral: diminished breath sounds, rhonchi Percussion: Bilateral: not dull Cardiovascular: regular rate and rhythm, other (S1,S2) Gastrointestinal: normoactive bowel sounds, soft, non-tender, non-distended Integumentary: normal Extremities: no cyanosis, pink and warm, pulses normal, no ischemia or petechiae, edema (trace) Neurologic: pupils equal and round, unable to assess, other (lethargic to obtunded) Psychiatric: other (unable to assess re: AMS) CBC and BMP: 07/19/20 01:05 07/19/20 01:05 ABG, PT/INR, D-dimer: ABG ABG pH 7.32 pH Units (7.350-7.450) L 07/05/20 13:05 POC ABG pCO2 35.8 mmHg (32.0-48.0) 07/01/20 05:02 ABG pCO2 47.0 mm Hg 07/05/20 13:05 POC ABG pO2 90.8 mmHg (83-108) 07/01/20 05:02 ABG pO2 78.3 mm Hg (80.0-90.0) L 07/05/20 13:05 POC ABG HCO3 22.1 07/01/20 05:02 ABG O2 Saturation 96.1 % (95.0-99.0) 07/05/20 13:05 PT/INR, D-dimer PT 14.2 Sec. (12.2-14.9) 05/29/20 15:10 INR 1.08 (0.87-1.13) 05/29/20 15:10 D-Dimer 2310.15 ng/mlDDU (0-234) H 06/29/20 14:45 Abnormal lab findings: Abnormal Labs 05/28/20 05/28/20 05/28/20 13:29 13:47 13:47 WBC RBC Hgb Hct MCHC RDW 15.3 H Lymph % (Auto) [place] % (Auto) Eos % (Auto) Lymph # [place] # Lymph # (Auto) [place] # (Auto) Seg Neutrophils % Seg Neuts % (Manual) Lymphocytes % (Manual) Seg Neutrophils # Seg Neutrophils # Man Lymphocytes # (Manual) Monocytes % (Manual) Eosinophils % (Manual) Monocytes # (Manual) Eosinophils # (Manual) D-Dimer Heparin Anti-Xa Level ABG pH POC ABG pCO2 POC ABG pO2 ABG pO2 ABG HCO3 ABG O2 Saturation ABG Base Excess ABG Hemoglobin ABG Oxyhemoglobin VBG pH Oxyhemoglobin Sodium Potassium 6.6 H* Chloride 109.2 H Carbon Dioxide 17 L BUN 29 H Creatinine 1.3 H Glucose 265 H POC Glucose 248 H Lactic Acid Calcium 8.1 L Ferritin AST 63 H Alkaline Phosphatase Magnesium Lactate Dehydrogenase Total Creatine Kinase 301 H CK-MB (CK-2) 4.3 H C-Reactive Protein Total Protein 5.4 L Albumin 2.6 L Troponin T HDL Cholesterol Urine WBC (Auto) Urine Creatinine Urine Total Protein Coronavirus (PCR) Crossmatch 05/28/20 05/28/20 05/28/20 13:47 13:47 14:46 WBC RBC Hgb Hct MCHC RDW Lymph % (Auto) [place] % (Auto) Eos % (Auto) Lymph # [place] # Lymph # (Auto) [place] # (Auto) Seg Neutrophils % Seg Neuts % (Manual) Lymphocytes % (Manual) Seg Neutrophils # Seg Neutrophils # Man Lymphocytes # (Manual) Monocytes % (Manual) Eosinophils % (Manual) Monocytes # (Manual) Eosinophils # (Manual) D-Dimer Heparin Anti-Xa Level ABG pH POC ABG pCO2 POC ABG pO2 ABG pO2 ABG HCO3 ABG O2 Saturation ABG Base Excess ABG Hemoglobin ABG Oxyhemoglobin VBG pH 7.152 L* Oxyhemoglobin Sodium Potassium 7.2 H* Chloride Carbon Dioxide BUN Creatinine Glucose POC Glucose Lactic Acid 3.40 H* Calcium Ferritin AST Alkaline Phosphatase Magnesium Lactate Dehydrogenase Total Creatine Kinase CK-MB (CK-2) C-Reactive Protein Total Protein Albumin Troponin T HDL Cholesterol Urine WBC (Auto) Urine Creatinine Urine Total Protein Coronavirus (PCR) Crossmatch 05/28/20 05/28/20 05/28/20 15:33 15:33 15:51 WBC RBC Hgb Hct MCHC RDW Lymph % (Auto) [place] % (Auto) Eos % (Auto) Lymph # [place] # Lymph # (Auto) [place] # (Auto) Seg Neutrophils % Seg Neuts % (Manual) Lymphocytes % (Manual) Seg Neutrophils # Seg Neutrophils # Man Lymphocytes # (Manual) Monocytes % (Manual) Eosinophils % (Manual) Monocytes # (Manual) Eosinophils # (Manual) D-Dimer 8780.43 H Heparin Anti-Xa Level ABG pH 7.284 L POC ABG pCO2 POC ABG pO2 ABG pO2 273.0 H ABG HCO3 ABG O2 Saturation 99.4 H ABG Base Excess -6.1 L ABG Hemoglobin 17.2 H ABG Oxyhemoglobin VBG pH Oxyhemoglobin Sodium Potassium Chloride Carbon Dioxide BUN Creatinine Glucose 152 H POC Glucose Lactic Acid Calcium Ferritin AST Alkaline Phosphatase Magnesium Lactate Dehydrogenase 365 H Total Creatine Kinase CK-MB (CK-2) C-Reactive Protein Total Protein Albumin Troponin T HDL Cholesterol Urine WBC (Auto) Urine Creatinine Urine Total Protein Coronavirus (PCR) Crossmatch 05/28/20 05/28/20 05/28/20 16:30 20:41 23:20 WBC RBC Hgb Hct MCHC RDW Lymph % (Auto) [place] % (Auto) Eos % (Auto) Lymph # [place] # Lymph # (Auto) [place] # (Auto) Seg Neutrophils % Seg Neuts % (Manual) Lymphocytes % (Manual) Seg Neutrophils # Seg Neutrophils # Man Lymphocytes # (Manual) Monocytes % (Manual) Eosinophils % (Manual) Monocytes # (Manual) Eosinophils # (Manual) D-Dimer Heparin Anti-Xa Level ABG pH POC ABG pCO2 POC ABG pO2 ABG pO2 ABG HCO3 ABG O2 Saturation ABG Base Excess ABG Hemoglobin ABG Oxyhemoglobin VBG pH Oxyhemoglobin Sodium Potassium Chloride Carbon Dioxide BUN Creatinine Glucose POC Glucose 225 H 224 H Lactic Acid Calcium Ferritin AST Alkaline Phosphatase Magnesium Lactate Dehydrogenase Total Creatine Kinase CK-MB (CK-2) C-Reactive Protein Total Protein Albumin Troponin T HDL Cholesterol Urine WBC (Auto) 17.0 H Urine Creatinine Urine Total Protein Coronavirus (PCR) Crossmatch 05/28/20 05/29/20 05/29/20 Unknown 04:35 04:43 WBC RBC 3.48 L Hgb 9.8 L Hct 29.4 L MCHC RDW 16.0 H Lymph % (Auto) 7.4 L [place] % (Auto) Eos % (Auto) Lymph # 0.7 L [place] # Lymph # (Auto) [place] # (Auto) Seg Neutrophils % 89.1 H Seg Neuts % (Manual) Lymphocytes % (Manual) Seg Neutrophils # 8.1 H Seg Neutrophils # Man Lymphocytes # (Manual) Monocytes % (Manual) Eosinophils % (Manual) Monocytes # (Manual) Eosinophils # (Manual) D-Dimer Heparin Anti-Xa Level ABG pH POC ABG pCO2 POC ABG pO2 ABG pO2 ABG HCO3 19.3 L ABG O2 Saturation ABG Base Excess -4.5 L ABG Hemoglobin 9.7 L ABG Oxyhemoglobin VBG pH Oxyhemoglobin Sodium Potassium Chloride Carbon Dioxide BUN Creatinine Glucose POC Glucose Lactic Acid Calcium Ferritin AST Alkaline Phosphatase Magnesium Lactate Dehydrogenase Total Creatine Kinase CK-MB (CK-2) C-Reactive Protein Total Protein Albumin Troponin T HDL Cholesterol Urine WBC (Auto) Urine Creatinine Urine Total Protein Coronavirus (PCR) Positive A Crossmatch 05/29/20 05/29/20 05/29/20 04:43 15:10 17:17 WBC RBC Hgb 9.3 L Hct 28.7 L MCHC RDW Lymph % (Auto) [place] % (Auto) Eos % (Auto) Lymph # [place] # Lymph # (Auto) [place] # (Auto) Seg Neutrophils % Seg Neuts % (Manual) Lymphocytes % (Manual) Seg Neutrophils # Seg Neutrophils # Man Lymphocytes # (Manual) Monocytes % (Manual) Eosinophils % (Manual) Monocytes # (Manual) Eosinophils # (Manual) D-Dimer Heparin Anti-Xa Level ABG pH POC ABG pCO2 POC ABG pO2 ABG pO2 ABG HCO3 ABG O2 Saturation ABG Base Excess ABG Hemoglobin ABG Oxyhemoglobin VBG pH Oxyhemoglobin Sodium Potassium Chloride 110.2 H Carbon Dioxide 18 L BUN 32 H Creatinine 1.4 H Glucose 180 H POC Glucose 147 H Lactic Acid Calcium Ferritin AST Alkaline Phosphatase Magnesium Lactate Dehydrogenase Total Creatine Kinase CK-MB (CK-2) C-Reactive Protein Total Protein Albumin Troponin T HDL Cholesterol Urine WBC (Auto) Urine Creatinine Urine Total Protein Coronavirus (PCR) Crossmatch 05/30/20 05/30/20 05/30/20 00:08 00:12 04:15 WBC RBC Hgb Hct MCHC RDW Lymph % (Auto) [place] % (Auto) Eos % (Auto) Lymph # [place] # Lymph # (Auto) [place] # (Auto) Seg Neutrophils % Seg Neuts % (Manual) Lymphocytes % (Manual) Seg Neutrophils # Seg Neutrophils # Man Lymphocytes # (Manual) Monocytes % (Manual) Eosinophils % (Manual) Monocytes # (Manual) Eosinophils # (Manual) D-Dimer Heparin Anti-Xa Level 0.71 H ABG pH 7.460 H POC ABG pCO2 POC ABG pO2 ABG pO2 106.0 H ABG HCO3 18.9 L ABG O2 Saturation ABG Base Excess -4.4 L ABG Hemoglobin 6.8 L ABG Oxyhemoglobin VBG pH Oxyhemoglobin Sodium Potassium Chloride Carbon Dioxide BUN Creatinine Glucose POC Glucose 195 H Lactic Acid Calcium Ferritin AST Alkaline Phosphatase Magnesium Lactate Dehydrogenase Total Creatine Kinase CK-MB (CK-2) C-Reactive Protein Total Protein Albumin Troponin T HDL Cholesterol Urine WBC (Auto) Urine Creatinine Urine Total Protein Coronavirus (PCR) Crossmatch 05/30/20 05/30/20 05/30/20 06:07 08:37 12:33 WBC RBC Hgb Hct MCHC RDW Lymph % (Auto) [place] % (Auto) Eos % (Auto) Lymph # [place] # Lymph # (Auto) [place] # (Auto) Seg Neutrophils % Seg Neuts % (Manual) Lymphocytes % (Manual) Seg Neutrophils # Seg Neutrophils # Man Lymphocytes # (Manual) Monocytes % (Manual) Eosinophils % (Manual) Monocytes # (Manual) Eosinophils # (Manual) D-Dimer Heparin Anti-Xa Level 0.85 H ABG pH POC ABG pCO2 POC ABG pO2 ABG pO2 ABG HCO3 ABG O2 Saturation ABG Base Excess ABG Hemoglobin ABG Oxyhemoglobin VBG pH Oxyhemoglobin Sodium Potassium Chloride Carbon Dioxide BUN Creatinine Glucose POC Glucose 182 H 187 H Lactic Acid Calcium Ferritin AST Alkaline Phosphatase Magnesium Lactate Dehydrogenase Total Creatine Kinase CK-MB (CK-2) C-Reactive Protein Total Protein Albumin Troponin T HDL Cholesterol Urine WBC (Auto) Urine Creatinine Urine Total Protein Coronavirus (PCR) Crossmatch 05/30/20 05/30/20 05/30/20 15:58 17:57 23:36 WBC RBC Hgb Hct MCHC RDW Lymph % (Auto) [place] % (Auto) Eos % (Auto) Lymph # [place] # Lymph # (Auto) [place] # (Auto) Seg Neutrophils % Seg Neuts % (Manual) Lymphocytes % (Manual) Seg Neutrophils # Seg Neutrophils # Man Lymphocytes # (Manual) Monocytes % (Manual) Eosinophils % (Manual) Monocytes # (Manual) Eosinophils # (Manual) D-Dimer Heparin Anti-Xa Level 1.03 H ABG pH POC ABG pCO2 POC ABG pO2 ABG pO2 ABG HCO3 ABG O2 Saturation ABG Base Excess ABG Hemoglobin ABG Oxyhemoglobin VBG pH Oxyhemoglobin Sodium Potassium Chloride Carbon Dioxide BUN Creatinine Glucose POC Glucose 208 H 185 H Lactic Acid Calcium Ferritin AST Alkaline Phosphatase Magnesium Lactate Dehydrogenase Total Creatine Kinase CK-MB (CK-2) C-Reactive Protein Total Protein Albumin Troponin T HDL Cholesterol Urine WBC (Auto) Urine Creatinine Urine Total Protein Coronavirus (PCR) Crossmatch 05/31/20 05/31/20 05/31/20 02:16 03:55 06:16 WBC RBC Hgb 9.2 L Hct 27.5 L MCHC RDW Lymph % (Auto) [place] % (Auto) Eos % (Auto) Lymph # [place] # Lymph # (Auto) [place] # (Auto) Seg Neutrophils % Seg Neuts % (Manual) Lymphocytes % (Manual) Seg Neutrophils # Seg Neutrophils # Man Lymphocytes # (Manual) Monocytes % (Manual) Eosinophils % (Manual) Monocytes # (Manual) Eosinophils # (Manual) D-Dimer Heparin Anti-Xa Level ABG pH POC ABG pCO2 POC ABG pO2 ABG pO2 94.7 H ABG HCO3 18.6 L ABG O2 Saturation ABG Base Excess -5.5 L ABG Hemoglobin 7.9 L ABG Oxyhemoglobin VBG pH Oxyhemoglobin Sodium Potassium Chloride Carbon Dioxide BUN Creatinine Glucose POC Glucose 160 H Lactic Acid Calcium Ferritin AST Alkaline Phosphatase Magnesium Lactate Dehydrogenase Total Creatine Kinase CK-MB (CK-2) C-Reactive Protein Total Protein Albumin Troponin T HDL Cholesterol Urine WBC (Auto) Urine Creatinine Urine Total Protein Coronavirus (PCR) Crossmatch 05/31/20 05/31/20 05/31/20 12:20 13:03 18:13 WBC RBC Hgb Hct MCHC RDW Lymph % (Auto) [place] % (Auto) Eos % (Auto) Lymph # [place] # Lymph # (Auto) [place] # (Auto) Seg Neutrophils % Seg Neuts % (Manual) Lymphocytes % (Manual) Seg Neutrophils # Seg Neutrophils # Man Lymphocytes # (Manual) Monocytes % (Manual) Eosinophils % (Manual) Monocytes # (Manual) Eosinophils # (Manual) D-Dimer Heparin Anti-Xa Level ABG pH POC ABG pCO2 POC ABG pO2 ABG pO2 ABG HCO3 ABG O2 Saturation ABG Base Excess ABG Hemoglobin ABG Oxyhemoglobin VBG pH Oxyhemoglobin Sodium Potassium Chloride Carbon Dioxide 18 L BUN 48 H Creatinine 1.6 H Glucose 115 H POC Glucose 128 H 159 H Lactic Acid Calcium 8.3 L Ferritin AST Alkaline Phosphatase Magnesium Lactate Dehydrogenase Total Creatine Kinase CK-MB (CK-2) C-Reactive Protein Total Protein 5.4 L Albumin 2.4 L Troponin T HDL Cholesterol Urine WBC (Auto) Urine Creatinine Urine Total Protein Coronavirus (PCR) Crossmatch 05/31/20 06/01/20 06/01/20 23:51 04:00 05:48 WBC RBC Hgb Hct MCHC RDW Lymph % (Auto) [place] % (Auto) Eos % (Auto) Lymph # [place] # Lymph # (Auto) [place] # (Auto) Seg Neutrophils % Seg Neuts % (Manual) Lymphocytes % (Manual) Seg Neutrophils # Seg Neutrophils # Man Lymphocytes # (Manual) Monocytes % (Manual) Eosinophils % (Manual) Monocytes # (Manual) Eosinophils # (Manual) D-Dimer Heparin Anti-Xa Level ABG pH POC ABG pCO2 POC ABG pO2 ABG pO2 109.8 H ABG HCO3 18.8 L ABG O2 Saturation ABG Base Excess -5.9 L ABG Hemoglobin 7.8 L ABG Oxyhemoglobin VBG pH Oxyhemoglobin Sodium Potassium Chloride Carbon Dioxide BUN Creatinine Glucose POC Glucose 171 H 133 H Lactic Acid Calcium Ferritin AST Alkaline Phosphatase Magnesium Lactate Dehydrogenase Total Creatine Kinase CK-MB (CK-2) C-Reactive Protein Total Protein Albumin Troponin T HDL Cholesterol Urine WBC (Auto) Urine Creatinine Urine Total Protein Coronavirus (PCR) Crossmatch 06/01/20 06/01/20 06/02/20 12:28 17:29 00:08 WBC RBC Hgb Hct MCHC RDW Lymph % (Auto) [place] % (Auto) Eos % (Auto) Lymph # [place] # Lymph # (Auto) [place] # (Auto) Seg Neutrophils % Seg Neuts % (Manual) Lymphocytes % (Manual) Seg Neutrophils # Seg Neutrophils # Man Lymphocytes # (Manual) Monocytes % (Manual) Eosinophils % (Manual) Monocytes # (Manual) Eosinophils # (Manual) D-Dimer Heparin Anti-Xa Level ABG pH POC ABG pCO2 POC ABG pO2 ABG pO2 ABG HCO3 ABG O2 Saturation ABG Base Excess ABG Hemoglobin ABG Oxyhemoglobin VBG pH Oxyhemoglobin Sodium Potassium Chloride Carbon Dioxide BUN Creatinine Glucose POC Glucose 199 H 209 H 162 H Lactic Acid Calcium Ferritin AST Alkaline Phosphatase Magnesium Lactate Dehydrogenase Total Creatine Kinase CK-MB (CK-2) C-Reactive Protein Total Protein Albumin Troponin T HDL Cholesterol Urine WBC (Auto) Urine Creatinine Urine Total Protein Coronavirus (PCR) Crossmatch 06/02/20 06/02/20 06/02/20 04:20 04:20 04:44 WBC RBC Hgb 10.0 L Hct MCHC RDW Lymph % (Auto) [place] % (Auto) Eos % (Auto) Lymph # [place] # Lymph # (Auto) [place] # (Auto) Seg Neutrophils % Seg Neuts % (Manual) Lymphocytes % (Manual) Seg Neutrophils # Seg Neutrophils # Man Lymphocytes # (Manual) Monocytes % (Manual) Eosinophils % (Manual) Monocytes # (Manual) Eosinophils # (Manual) D-Dimer Heparin Anti-Xa Level 0.10 L ABG pH POC ABG pCO2 POC ABG pO2 ABG pO2 150.6 H ABG HCO3 ABG O2 Saturation ABG Base Excess -4.1 L ABG Hemoglobin 11.8 L ABG Oxyhemoglobin VBG pH Oxyhemoglobin Sodium Potassium Chloride Carbon Dioxide BUN Creatinine Glucose POC Glucose Lactic Acid Calcium Ferritin AST Alkaline Phosphatase Magnesium Lactate Dehydrogenase Total Creatine Kinase CK-MB (CK-2) C-Reactive Protein Total Protein Albumin Troponin T HDL Cholesterol Urine WBC (Auto) Urine Creatinine Urine Total Protein Coronavirus (PCR) Crossmatch 06/02/20 06/02/20 06/02/20 05:53 12:04 13:49 WBC RBC Hgb Hct MCHC RDW Lymph % (Auto) [place] % (Auto) Eos % (Auto) Lymph # [place] # Lymph # (Auto) [place] # (Auto) Seg Neutrophils % Seg Neuts % (Manual) Lymphocytes % (Manual) Seg Neutrophils # Seg Neutrophils # Man Lymphocytes # (Manual) Monocytes % (Manual) Eosinophils % (Manual) Monocytes # (Manual) Eosinophils # (Manual) D-Dimer Heparin Anti-Xa Level 0.28 L ABG pH POC ABG pCO2 POC ABG pO2 ABG pO2 ABG HCO3 ABG O2 Saturation ABG Base Excess ABG Hemoglobin ABG Oxyhemoglobin VBG pH Oxyhemoglobin Sodium Potassium Chloride Carbon Dioxide BUN Creatinine Glucose POC Glucose 149 H 220 H Lactic Acid Calcium Ferritin AST Alkaline Phosphatase Magnesium Lactate Dehydrogenase Total Creatine Kinase CK-MB (CK-2) C-Reactive Protein Total Protein Albumin Troponin T HDL Cholesterol Urine WBC (Auto) Urine Creatinine Urine Total Protein Coronavirus (PCR) Crossmatch 06/02/20 06/02/20 06/03/20 13:49 18:31 00:42 WBC RBC Hgb Hct MCHC RDW Lymph % (Auto) [place] % (Auto) Eos % (Auto) Lymph # [place] # Lymph # (Auto) [place] # (Auto) Seg Neutrophils % Seg Neuts % (Manual) Lymphocytes % (Manual) Seg Neutrophils # Seg Neutrophils # Man Lymphocytes # (Manual) Monocytes % (Manual) Eosinophils % (Manual) Monocytes # (Manual) Eosinophils # (Manual) D-Dimer 769.68 H Heparin Anti-Xa Level ABG pH POC ABG pCO2 POC ABG pO2 ABG pO2 ABG HCO3 ABG O2 Saturation ABG Base Excess ABG Hemoglobin ABG Oxyhemoglobin VBG pH Oxyhemoglobin Sodium Potassium Chloride Carbon Dioxide BUN Creatinine Glucose POC Glucose 225 H 212 H Lactic Acid Calcium Ferritin AST Alkaline Phosphatase Magnesium Lactate Dehydrogenase Total Creatine Kinase CK-MB (CK-2) C-Reactive Protein Total Protein Albumin Troponin T HDL Cholesterol Urine WBC (Auto) Urine Creatinine Urine Total Protein Coronavirus (PCR) Crossmatch 0806/03/20 06/03/20 05:16 05:16 05:25 WBC 11.4 H RBC Hgb Hct MCHC RDW 16.4 H Lymph % (Auto) [place] % (Auto) Eos % (Auto) Lymph # [place] # Lymph # (Auto) [place] # (Auto) Seg Neutrophils % Seg Neuts % (Manual) Lymphocytes % (Manual) Seg Neutrophils # Seg Neutrophils # Man Lymphocytes # (Manual) Monocytes % (Manual) Eosinophils % (Manual) Monocytes # (Manual) Eosinophils # (Manual) D-Dimer Heparin Anti-Xa Level ABG pH POC ABG pCO2 POC ABG pO2 ABG pO2 160.9 H ABG HCO3 19.4 L ABG O2 Saturation ABG Base Excess -4.9 L ABG Hemoglobin 7.0 L ABG Oxyhemoglobin VBG pH Oxyhemoglobin Sodium Potassium Chloride Carbon Dioxide 18 L BUN 65 H Creatinine 2.0 H Glucose 175 H POC Glucose Lactic Acid Calcium 8.0 L Ferritin AST Alkaline Phosphatase Magnesium Lactate Dehydrogenase Total Creatine Kinase CK-MB (CK-2) C-Reactive Protein Total Protein 5.5 L Albumin 2.2 L Troponin T HDL Cholesterol Urine WBC (Auto) Urine Creatinine Urine Total Protein Coronavirus (PCR) Crossmatch 06/03/20 06/03/20 06/03/20 06:07 11:58 18:24 WBC RBC Hgb Hct MCHC RDW Lymph % (Auto) [place] % (Auto) Eos % (Auto) Lymph # [place] # Lymph # (Auto) [place] # (Auto) Seg Neutrophils % Seg Neuts % (Manual) Lymphocytes % (Manual) Seg Neutrophils # Seg Neutrophils # Man Lymphocytes # (Manual) Monocytes % (Manual) Eosinophils % (Manual) Monocytes # (Manual) Eosinophils # (Manual) D-Dimer Heparin Anti-Xa Level ABG pH POC ABG pCO2 POC ABG pO2 ABG pO2 ABG HCO3 ABG O2 Saturation ABG Base Excess ABG Hemoglobin ABG Oxyhemoglobin VBG pH Oxyhemoglobin Sodium Potassium Chloride Carbon Dioxide BUN Creatinine Glucose POC Glucose 177 H 163 H 211 H Lactic Acid Calcium Ferritin AST Alkaline Phosphatase Magnesium Lactate Dehydrogenase Total Creatine Kinase CK-MB (CK-2) C-Reactive Protein Total Protein Albumin Troponin T HDL Cholesterol Urine WBC (Auto) Urine Creatinine Urine Total Protein Coronavirus (PCR) Crossmatch 06/03/20 06/03/20 06/04/20 21:50 Unknown 00:26 WBC RBC Hgb Hct MCHC RDW Lymph % (Auto) [place] % (Auto) Eos % (Auto) Lymph # [place] # Lymph # (Auto) [place] # (Auto) Seg Neutrophils % Seg Neuts % (Manual) Lymphocytes % (Manual) Seg Neutrophils # Seg Neutrophils # Man Lymphocytes # (Manual) Monocytes % (Manual) Eosinophils % (Manual) Monocytes # (Manual) Eosinophils # (Manual) D-Dimer Heparin Anti-Xa Level ABG pH POC ABG pCO2 POC ABG pO2 ABG pO2 ABG HCO3 ABG O2 Saturation ABG Base Excess ABG Hemoglobin ABG Oxyhemoglobin VBG pH Oxyhemoglobin Sodium 135 L Potassium Chloride Carbon Dioxide 18 L BUN Creatinine Glucose POC Glucose 241 H Lactic Acid Calcium Ferritin AST Alkaline Phosphatase Magnesium Lactate Dehydrogenase Total Creatine Kinase CK-MB (CK-2) C-Reactive Protein Total Protein Albumin Troponin T HDL Cholesterol Urine WBC (Auto) 11.0 H Urine Creatinine Urine Total Protein Coronavirus (PCR) Crossmatch 06/04/20 06/04/20 06/04/20 03:35 04:19 04:19 WBC RBC 3.15 L Hgb 8.9 L Hct 26.8 L D MCHC RDW 15.9 H Lymph % (Auto) 6.0 L [place] % (Auto) Eos % (Auto) Lymph # 0.6 L [place] # Lymph # (Auto) [place] # (Auto) Seg Neutrophils % 86.6 H Seg Neuts % (Manual) Lymphocytes % (Manual) Seg Neutrophils # 9.1 H Seg Neutrophils # Man Lymphocytes # (Manual) Monocytes % (Manual) Eosinophils % (Manual) Monocytes # (Manual) Eosinophils # (Manual) D-Dimer Heparin Anti-Xa Level ABG pH 7.331 L POC ABG pCO2 POC ABG pO2 ABG pO2 ABG HCO3 ABG O2 Saturation ABG Base Excess -4.7 L ABG Hemoglobin 11.0 L ABG Oxyhemoglobin VBG pH Oxyhemoglobin 93.9 L Sodium 136 L Potassium Chloride Carbon Dioxide 20 L BUN 73 H Creatinine 2.0 H Glucose 192 H POC Glucose Lactic Acid Calcium 8.0 L Ferritin AST Alkaline Phosphatase Magnesium Lactate Dehydrogenase 271 H Total Creatine Kinase CK-MB (CK-2) C-Reactive Protein 2.20 H Total Protein 5.0 L Albumin 2.0 L Troponin T HDL Cholesterol Urine WBC (Auto) Urine Creatinine Urine Total Protein Coronavirus (PCR) Crossmatch 06/04/20 06/04/20 06/04/20 04:19 05:51 11:48 WBC RBC Hgb Hct MCHC RDW Lymph % (Auto) [place] % (Auto) Eos % (Auto) Lymph # [place] # Lymph # (Auto) [place] # (Auto) Seg Neutrophils % Seg Neuts % (Manual) Lymphocytes % (Manual) Seg Neutrophils # Seg Neutrophils # Man Lymphocytes # (Manual) Monocytes % (Manual) Eosinophils % (Manual) Monocytes # (Manual) Eosinophils # (Manual) D-Dimer 414.52 H Heparin Anti-Xa Level ABG pH POC ABG pCO2 POC ABG pO2 ABG pO2 ABG HCO3 ABG O2 Saturation ABG Base Excess ABG Hemoglobin ABG Oxyhemoglobin VBG pH Oxyhemoglobin Sodium Potassium Chloride Carbon Dioxide BUN Creatinine Glucose POC Glucose 179 H 213 H Lactic Acid Calcium Ferritin AST Alkaline Phosphatase Magnesium Lactate Dehydrogenase Total Creatine Kinase CK-MB (CK-2) C-Reactive Protein Total Protein Albumin Troponin T HDL Cholesterol Urine WBC (Auto) Urine Creatinine Urine Total Protein Coronavirus (PCR) Crossmatch 06/04/20 06/05/20 06/05/20 18:25 00:16 05:00 WBC RBC Hgb Hct MCHC RDW Lymph % (Auto) [place] % (Auto) Eos % (Auto) Lymph # [place] # Lymph # (Auto) [place] # (Auto) Seg Neutrophils % Seg Neuts % (Manual) Lymphocytes % (Manual) Seg Neutrophils # Seg Neutrophils # Man Lymphocytes # (Manual) Monocytes % (Manual) Eosinophils % (Manual) Monocytes # (Manual) Eosinophils # (Manual) D-Dimer Heparin Anti-Xa Level ABG pH 7.286 L POC ABG pCO2 POC ABG pO2 ABG pO2 96.2 H ABG HCO3 ABG O2 Saturation ABG Base Excess -6.3 L ABG Hemoglobin 8.8 L ABG Oxyhemoglobin VBG pH Oxyhemoglobin 94.8 L Sodium Potassium Chloride Carbon Dioxide BUN Creatinine Glucose POC Glucose 238 H 183 H Lactic Acid Calcium Ferritin AST Alkaline Phosphatase Magnesium Lactate Dehydrogenase Total Creatine Kinase CK-MB (CK-2) C-Reactive Protein Total Protein Albumin Troponin T HDL Cholesterol Urine WBC (Auto) Urine Creatinine Urine Total Protein Coronavirus (PCR) Crossmatch 06/05/20 06/05/20 06/05/20 05:39 07:25 07:25 WBC RBC 2.97 L Hgb 8.7 L Hct 25.7 L MCHC RDW 16.0 H Lymph % (Auto) 8.8 L [place] % (Auto) 13.3 H Eos % (Auto) Lymph # 0.8 L [place] # 1.3 H Lymph # (Auto) [place] # (Auto) Seg Neutrophils % 77.3 H Seg Neuts % (Manual) Lymphocytes % (Manual) Seg Neutrophils # Seg Neutrophils # Man Lymphocytes # (Manual) Monocytes % (Manual) Eosinophils % (Manual) Monocytes # (Manual) Eosinophils # (Manual) D-Dimer Heparin Anti-Xa Level ABG pH POC ABG pCO2 POC ABG pO2 ABG pO2 ABG HCO3 ABG O2 Saturation ABG Base Excess ABG Hemoglobin ABG Oxyhemoglobin VBG pH Oxyhemoglobin Sodium 133 L Potassium Chloride Carbon Dioxide 17 L BUN 89 H Creatinine 2.8 H Glucose 176 H POC Glucose 149 H Lactic Acid Calcium 7.7 L Ferritin AST Alkaline Phosphatase Magnesium Lactate Dehydrogenase Total Creatine Kinase CK-MB (CK-2) C-Reactive Protein Total Protein 4.2 L Albumin 1.9 L Troponin T HDL Cholesterol Urine WBC (Auto) Urine Creatinine Urine Total Protein Coronavirus (PCR) Crossmatch 06/05/20 06/05/20 06/05/20 07:25 12:05 15:41 WBC RBC Hgb Hct MCHC RDW Lymph % (Auto) [place] % (Auto) Eos % (Auto) Lymph # [place] # Lymph # (Auto) [place] # (Auto) Seg Neutrophils % Seg Neuts % (Manual) Lymphocytes % (Manual) Seg Neutrophils # Seg Neutrophils # Man Lymphocytes # (Manual) Monocytes % (Manual) Eosinophils % (Manual) Monocytes # (Manual) Eosinophils # (Manual) D-Dimer Heparin Anti-Xa Level 0.76 H 0.81 H ABG pH POC ABG pCO2 POC ABG pO2 ABG pO2 ABG HCO3 ABG O2 Saturation ABG Base Excess ABG Hemoglobin ABG Oxyhemoglobin VBG pH Oxyhemoglobin Sodium Potassium Chloride Carbon Dioxide BUN Creatinine Glucose POC Glucose 198 H Lactic Acid Calcium Ferritin AST Alkaline Phosphatase Magnesium Lactate Dehydrogenase Total Creatine Kinase CK-MB (CK-2) C-Reactive Protein Total Protein Albumin Troponin T HDL Cholesterol Urine WBC (Auto) Urine Creatinine Urine Total Protein Coronavirus (PCR) Crossmatch 06/05/20 06/05/20 06/06/20 18:08 23:25 04:00 WBC RBC Hgb Hct MCHC RDW Lymph % (Auto) [place] % (Auto) Eos % (Auto) Lymph # [place] # Lymph # (Auto) [place] # (Auto) Seg Neutrophils % Seg Neuts % (Manual) Lymphocytes % (Manual) Seg Neutrophils # Seg Neutrophils # Man Lymphocytes # (Manual) Monocytes % (Manual) Eosinophils % (Manual) Monocytes # (Manual) Eosinophils # (Manual) D-Dimer Heparin Anti-Xa Level ABG pH POC ABG pCO2 POC ABG pO2 ABG pO2 ABG HCO3 ABG O2 Saturation ABG Base Excess ABG Hemoglobin ABG Oxyhemoglobin VBG pH Oxyhemoglobin Sodium Potassium Chloride Carbon Dioxide BUN Creatinine Glucose POC Glucose 223 H 169 H Lactic Acid Calcium Ferritin AST Alkaline Phosphatase Magnesium Lactate Dehydrogenase Total Creatine Kinase CK-MB (CK-2) C-Reactive Protein Total Protein Albumin Troponin T HDL Cholesterol Urine WBC (Auto) 15.0 H Urine Creatinine Urine Total Protein Coronavirus (PCR) Crossmatch 06/06/20 06/06/20 06/06/20 04:00 05:33 05:38 WBC RBC 2.97 L Hgb 8.7 L Hct 26.8 L MCHC RDW 16.8 H Lymph % (Auto) [place] % (Auto) Eos % (Auto) Lymph # [place] # Lymph # (Auto) [place] # (Auto) Seg Neutrophils % Seg Neuts % (Manual) Lymphocytes % (Manual) Seg Neutrophils # Seg Neutrophils # Man Lymphocytes # (Manual) Monocytes % (Manual) Eosinophils % (Manual) Monocytes # (Manual) Eosinophils # (Manual) D-Dimer Heparin Anti-Xa Level ABG pH POC ABG pCO2 POC ABG pO2 ABG pO2 ABG HCO3 ABG O2 Saturation ABG Base Excess ABG Hemoglobin ABG Oxyhemoglobin VBG pH Oxyhemoglobin Sodium Potassium Chloride Carbon Dioxide BUN Creatinine Glucose POC Glucose 186 H Lactic Acid Calcium Ferritin AST Alkaline Phosphatase Magnesium Lactate Dehydrogenase Total Creatine Kinase CK-MB (CK-2) C-Reactive Protein Total Protein Albumin Troponin T HDL Cholesterol Urine WBC (Auto) Urine Creatinine 82.2 H Urine Total Protein 196 H Coronavirus (PCR) Crossmatch 06/06/20 06/06/20 06/06/20 05:38 12:25 17:03 WBC RBC Hgb Hct MCHC RDW Lymph % (Auto) [place] % (Auto) Eos % (Auto) Lymph # [place] # Lymph # (Auto) [place] # (Auto) Seg Neutrophils % Seg Neuts % (Manual) Lymphocytes % (Manual) Seg Neutrophils # Seg Neutrophils # Man Lymphocytes # (Manual) Monocytes % (Manual) Eosinophils % (Manual) Monocytes # (Manual) Eosinophils # (Manual) D-Dimer Heparin Anti-Xa Level ABG pH POC ABG pCO2 POC ABG pO2 ABG pO2 ABG HCO3 ABG O2 Saturation ABG Base Excess ABG Hemoglobin ABG Oxyhemoglobin VBG pH Oxyhemoglobin Sodium 134 L Potassium 5.2 H Chloride Carbon Dioxide 18 L BUN 97 H Creatinine 2.5 H Glucose 193 H POC Glucose 239 H 252 H Lactic Acid Calcium 7.5 L Ferritin AST Alkaline Phosphatase Magnesium Lactate Dehydrogenase Total Creatine Kinase CK-MB (CK-2) C-Reactive Protein Total Protein 4.1 L Albumin 1.9 L Troponin T HDL Cholesterol Urine WBC (Auto) Urine Creatinine Urine Total Protein Coronavirus (PCR) Crossmatch 06/07/20 06/07/20 06/07/20 00:16 01:49 04:00 WBC RBC 2.91 L Hgb 8.4 L Hct 25.0 L MCHC RDW 16.1 H Lymph % (Auto) 5.7 L [place] % (Auto) 10.5 H Eos % (Auto) Lymph # 0.6 L [place] # 1.1 H Lymph # (Auto) [place] # (Auto) Seg Neutrophils % 83.6 H Seg Neuts % (Manual) Lymphocytes % (Manual) Seg Neutrophils # 9.1 H Seg Neutrophils # Man Lymphocytes # (Manual) Monocytes % (Manual) Eosinophils % (Manual) Monocytes # (Manual) Eosinophils # (Manual) D-Dimer Heparin Anti-Xa Level 0.26 L ABG pH POC ABG pCO2 POC ABG pO2 ABG pO2 ABG HCO3 ABG O2 Saturation ABG Base Excess ABG Hemoglobin ABG Oxyhemoglobin VBG pH Oxyhemoglobin Sodium Potassium Chloride Carbon Dioxide BUN Creatinine Glucose POC Glucose 173 H Lactic Acid Calcium Ferritin AST Alkaline Phosphatase Magnesium Lactate Dehydrogenase Total Creatine Kinase CK-MB (CK-2) C-Reactive Protein Total Protein Albumin Troponin T HDL Cholesterol Urine WBC (Auto) Urine Creatinine Urine Total Protein Coronavirus (PCR) Crossmatch 06/07/20 06/07/20 06/07/20 04:00 04:54 05:51 WBC RBC Hgb Hct MCHC RDW Lymph % (Auto) [place] % (Auto) Eos % (Auto) Lymph # [place] # Lymph # (Auto) [place] # (Auto) Seg Neutrophils % Seg Neuts % (Manual) Lymphocytes % (Manual) Seg Neutrophils # Seg Neutrophils # Man Lymphocytes # (Manual) Monocytes % (Manual) Eosinophils % (Manual) Monocytes # (Manual) Eosinophils # (Manual) D-Dimer Heparin Anti-Xa Level ABG pH 7.317 L POC ABG pCO2 POC ABG pO2 ABG pO2 71.4 L ABG HCO3 ABG O2 Saturation 94.3 L ABG Base Excess -4.8 L ABG Hemoglobin 7.1 L ABG Oxyhemoglobin VBG pH Oxyhemoglobin 92.2 L Sodium 133 L Potassium Chloride Carbon Dioxide 18 L BUN 100 H Creatinine 2.5 H Glucose 158 H POC Glucose 168 H Lactic Acid Calcium 7.6 L Ferritin AST Alkaline Phosphatase Magnesium Lactate Dehydrogenase Total Creatine Kinase CK-MB (CK-2) C-Reactive Protein Total Protein 4.7 L Albumin 2.0 L Troponin T HDL Cholesterol Urine WBC (Auto) Urine Creatinine Urine Total Protein Coronavirus (PCR) Crossmatch 06/07/20 06/07/20 06/07/20 12:03 17:17 20:10 WBC RBC Hgb Hct MCHC RDW Lymph % (Auto) [place] % (Auto) Eos % (Auto) Lymph # [place] # Lymph # (Auto) [place] # (Auto) Seg Neutrophils % Seg Neuts % (Manual) Lymphocytes % (Manual) Seg Neutrophils # Seg Neutrophils # Man Lymphocytes # (Manual) Monocytes % (Manual) Eosinophils % (Manual) Monocytes # (Manual) Eosinophils # (Manual) D-Dimer Heparin Anti-Xa Level 0.17 L ABG pH POC ABG pCO2 POC ABG pO2 ABG pO2 ABG HCO3 ABG O2 Saturation ABG Base Excess ABG Hemoglobin ABG Oxyhemoglobin VBG pH Oxyhemoglobin Sodium Potassium Chloride Carbon Dioxide BUN Creatinine Glucose POC Glucose 276 H 281 H Lactic Acid Calcium Ferritin AST Alkaline Phosphatase Magnesium Lactate Dehydrogenase Total Creatine Kinase CK-MB (CK-2) C-Reactive Protein Total Protein Albumin Troponin T HDL Cholesterol Urine WBC (Auto) Urine Creatinine Urine Total Protein Coronavirus (PCR) Crossmatch 06/08/20 06/08/20 06/08/20 00:02 04:47 04:47 WBC 16.4 H RBC 3.07 L Hgb 8.6 L Hct 26.5 L MCHC RDW 16.3 H Lymph % (Auto) [place] % (Auto) Eos % (Auto) Lymph # [place] # Lymph # (Auto) [place] # (Auto) Seg Neutrophils % Seg Neuts % (Manual) 90.0 H Lymphocytes % (Manual) 3.0 L Seg Neutrophils # Seg Neutrophils # Man 14.8 H Lymphocytes # (Manual) 0.5 L Monocytes % (Manual) Eosinophils % (Manual) Monocytes # (Manual) 1.1 H Eosinophils # (Manual) D-Dimer Heparin Anti-Xa Level ABG pH POC ABG pCO2 POC ABG pO2 ABG pO2 ABG HCO3 ABG O2 Saturation ABG Base Excess ABG Hemoglobin ABG Oxyhemoglobin VBG pH Oxyhemoglobin Sodium 129 L Potassium Chloride 95.6 L Carbon Dioxide 17 L BUN 106 H Creatinine 2.5 H Glucose 213 H POC Glucose 242 H Lactic Acid Calcium 7.6 L Ferritin AST Alkaline Phosphatase Magnesium Lactate Dehydrogenase Total Creatine Kinase CK-MB (CK-2) C-Reactive Protein Total Protein 5.0 L Albumin 2.1 L Troponin T HDL Cholesterol Urine WBC (Auto) Urine Creatinine Urine Total Protein Coronavirus (PCR) Crossmatch 06/08/20 06/08/20 06/08/20 05:40 11:55 17:54 WBC RBC Hgb Hct MCHC RDW Lymph % (Auto) [place] % (Auto) Eos % (Auto) Lymph # [place] # Lymph # (Auto) [place] # (Auto) Seg Neutrophils % Seg Neuts % (Manual) Lymphocytes % (Manual) Seg Neutrophils # Seg Neutrophils # Man Lymphocytes # (Manual) Monocytes % (Manual) Eosinophils % (Manual) Monocytes # (Manual) Eosinophils # (Manual) D-Dimer Heparin Anti-Xa Level ABG pH POC ABG pCO2 POC ABG pO2 ABG pO2 ABG HCO3 ABG O2 Saturation ABG Base Excess ABG Hemoglobin ABG Oxyhemoglobin VBG pH Oxyhemoglobin Sodium Potassium Chloride Carbon Dioxide BUN Creatinine Glucose POC Glucose 221 H 218 H 163 H Lactic Acid Calcium Ferritin AST Alkaline Phosphatase Magnesium Lactate Dehydrogenase Total Creatine Kinase CK-MB (CK-2) C-Reactive Protein Total Protein Albumin Troponin T HDL Cholesterol Urine WBC (Auto) Urine Creatinine Urine Total Protein Coronavirus (PCR) Crossmatch 06/08/20 06/09/20 06/09/20 22:01 00:09 05:16 WBC 19.0 H RBC 3.35 L Hgb 9.2 L Hct 28.5 L MCHC RDW 16.3 H Lymph % (Auto) [place] % (Auto) Eos % (Auto) Lymph # [place] # Lymph # (Auto) [place] # (Auto) Seg Neutrophils % Seg Neuts % (Manual) 85.0 H Lymphocytes % (Manual) 7.0 L Seg Neutrophils # Seg Neutrophils # Man 16.2 H Lymphocytes # (Manual) Monocytes % (Manual) Eosinophils % (Manual) Monocytes # (Manual) 1.3 H Eosinophils # (Manual) D-Dimer Heparin Anti-Xa Level ABG pH POC ABG pCO2 POC ABG pO2 ABG pO2 ABG HCO3 ABG O2 Saturation ABG Base Excess ABG Hemoglobin ABG Oxyhemoglobin VBG pH Oxyhemoglobin Sodium Potassium Chloride Carbon Dioxide BUN Creatinine Glucose POC Glucose 182 H 150 H Lactic Acid Calcium Ferritin AST Alkaline Phosphatase Magnesium Lactate Dehydrogenase Total Creatine Kinase CK-MB (CK-2) C-Reactive Protein Total Protein Albumin Troponin T HDL Cholesterol Urine WBC (Auto) Urine Creatinine Urine Total Protein Coronavirus (PCR) Crossmatch 06/09/20 06/09/20 06/09/20 05:16 05:24 11:29 WBC RBC Hgb Hct MCHC RDW Lymph % (Auto) [place] % (Auto) Eos % (Auto) Lymph # [place] # Lymph # (Auto) [place] # (Auto) Seg Neutrophils % Seg Neuts % (Manual) Lymphocytes % (Manual) Seg Neutrophils # Seg Neutrophils # Man Lymphocytes # (Manual) Monocytes % (Manual) Eosinophils % (Manual) Monocytes # (Manual) Eosinophils # (Manual) D-Dimer Heparin Anti-Xa Level ABG pH POC ABG pCO2 POC ABG pO2 ABG pO2 ABG HCO3 ABG O2 Saturation ABG Base Excess ABG Hemoglobin ABG Oxyhemoglobin VBG pH Oxyhemoglobin Sodium 133 L Potassium Chloride Carbon Dioxide 19 L BUN 109 H Creatinine 2.1 H Glucose 133 H POC Glucose 128 H 119 H Lactic Acid Calcium 7.7 L Ferritin AST Alkaline Phosphatase < 5 L Magnesium Lactate Dehydrogenase Total Creatine Kinase CK-MB (CK-2) C-Reactive Protein Total Protein 4.6 L Albumin < 0.2 L Troponin T HDL Cholesterol Urine WBC (Auto) Urine Creatinine Urine Total Protein Coronavirus (PCR) Crossmatch 06/09/20 06/10/20 06/10/20 17:32 00:00 05:49 WBC RBC Hgb Hct MCHC RDW Lymph % (Auto) [place] % (Auto) Eos % (Auto) Lymph # [place] # Lymph # (Auto) [place] # (Auto) Seg Neutrophils % Seg Neuts % (Manual) Lymphocytes % (Manual) Seg Neutrophils # Seg Neutrophils # Man Lymphocytes # (Manual) Monocytes % (Manual) Eosinophils % (Manual) Monocytes # (Manual) Eosinophils # (Manual) D-Dimer Heparin Anti-Xa Level 0.19 L ABG pH POC ABG pCO2 POC ABG pO2 ABG pO2 ABG HCO3 ABG O2 Saturation ABG Base Excess ABG Hemoglobin ABG Oxyhemoglobin VBG pH Oxyhemoglobin Sodium Potassium Chloride Carbon Dioxide BUN Creatinine Glucose POC Glucose 106 H 117 H Lactic Acid Calcium Ferritin AST Alkaline Phosphatase Magnesium Lactate Dehydrogenase Total Creatine Kinase CK-MB (CK-2) C-Reactive Protein Total Protein Albumin Troponin T HDL Cholesterol Urine WBC (Auto) Urine Creatinine Urine Total Protein Coronavirus (PCR) Crossmatch 06/10/20 06/10/20 06/10/20 05:54 07:40 11:40 WBC RBC Hgb Hct MCHC RDW Lymph % (Auto) [place] % (Auto) Eos % (Auto) Lymph # [place] # Lymph # (Auto) [place] # (Auto) Seg Neutrophils % Seg Neuts % (Manual) Lymphocytes % (Manual) Seg Neutrophils # Seg Neutrophils # Man Lymphocytes # (Manual) Monocytes % (Manual) Eosinophils % (Manual) Monocytes # (Manual) Eosinophils # (Manual) D-Dimer Heparin Anti-Xa Level ABG pH POC ABG pCO2 POC ABG pO2 ABG pO2 ABG HCO3 ABG O2 Saturation ABG Base Excess ABG Hemoglobin ABG Oxyhemoglobin VBG pH Oxyhemoglobin Sodium 146 H D Potassium Chloride Carbon Dioxide 20 L BUN 99 H Creatinine 1.9 H Glucose 121 H POC Glucose 127 H 138 H Lactic Acid Calcium 8.2 L Ferritin AST Alkaline Phosphatase Magnesium Lactate Dehydrogenase Total Creatine Kinase CK-MB (CK-2) C-Reactive Protein Total Protein Albumin Troponin T HDL Cholesterol Urine WBC (Auto) Urine Creatinine Urine Total Protein Coronavirus (PCR) Crossmatch 06/10/20 06/10/20 06/10/20 14:44 17:31 23:22 WBC RBC Hgb Hct MCHC RDW Lymph % (Auto) [place] % (Auto) Eos % (Auto) Lymph # [place] # Lymph # (Auto) [place] # (Auto) Seg Neutrophils % Seg Neuts % (Manual) Lymphocytes % (Manual) Seg Neutrophils # Seg Neutrophils # Man Lymphocytes # (Manual) Monocytes % (Manual) Eosinophils % (Manual) Monocytes # (Manual) Eosinophils # (Manual) D-Dimer Heparin Anti-Xa Level 0.17 L ABG pH POC ABG pCO2 POC ABG pO2 ABG pO2 ABG HCO3 ABG O2 Saturation ABG Base Excess ABG Hemoglobin ABG Oxyhemoglobin VBG pH Oxyhemoglobin Sodium Potassium Chloride Carbon Dioxide BUN Creatinine Glucose POC Glucose 128 H 114 H Lactic Acid Calcium Ferritin AST Alkaline Phosphatase Magnesium Lactate Dehydrogenase Total Creatine Kinase CK-MB (CK-2) C-Reactive Protein Total Protein Albumin Troponin T HDL Cholesterol Urine WBC (Auto) Urine Creatinine Urine Total Protein Coronavirus (PCR) Crossmatch 06/11/20 06/11/20 06/11/20 00:22 03:45 03:45 WBC 14.6 H RBC 2.77 L Hgb 7.9 L Hct 24.3 L MCHC RDW 16.8 H Lymph % (Auto) 6.6 L [place] % (Auto) 8.5 H Eos % (Auto) Lymph # 1.0 L [place] # 1.2 H Lymph # (Auto) [place] # (Auto) Seg Neutrophils % 82.9 H Seg Neuts % (Manual) Lymphocytes % (Manual) Seg Neutrophils # 12.1 H Seg Neutrophils # Man Lymphocytes # (Manual) Monocytes % (Manual) Eosinophils % (Manual) Monocytes # (Manual) Eosinophils # (Manual) D-Dimer Heparin Anti-Xa Level 0.24 L ABG pH POC ABG pCO2 POC ABG pO2 ABG pO2 ABG HCO3 ABG O2 Saturation ABG Base Excess ABG Hemoglobin ABG Oxyhemoglobin VBG pH Oxyhemoglobin Sodium Potassium Chloride Carbon Dioxide 20 L BUN 88 H Creatinine 1.5 H Glucose 111 H POC Glucose Lactic Acid Calcium 8.2 L Ferritin AST Alkaline Phosphatase Magnesium Lactate Dehydrogenase Total Creatine Kinase CK-MB (CK-2) C-Reactive Protein Total Protein Albumin Troponin T HDL Cholesterol Urine WBC (Auto) Urine Creatinine Urine Total Protein Coronavirus (PCR) Crossmatch 06/11/20 06/11/20 06/11/20 06:03 10:22 11:11 WBC RBC Hgb Hct MCHC RDW Lymph % (Auto) [place] % (Auto) Eos % (Auto) Lymph # [place] # Lymph # (Auto) [place] # (Auto) Seg Neutrophils % Seg Neuts % (Manual) Lymphocytes % (Manual) Seg Neutrophils # Seg Neutrophils # Man Lymphocytes # (Manual) Monocytes % (Manual) Eosinophils % (Manual) Monocytes # (Manual) Eosinophils # (Manual) D-Dimer Heparin Anti-Xa Level 0.26 L ABG pH POC ABG pCO2 POC ABG pO2 ABG pO2 ABG HCO3 ABG O2 Saturation ABG Base Excess ABG Hemoglobin 9.6 L ABG Oxyhemoglobin VBG pH Oxyhemoglobin Sodium Potassium Chloride Carbon Dioxide BUN Creatinine Glucose POC Glucose 114 H Lactic Acid Calcium Ferritin AST Alkaline Phosphatase Magnesium Lactate Dehydrogenase Total Creatine Kinase CK-MB (CK-2) C-Reactive Protein Total Protein Albumin Troponin T HDL Cholesterol Urine WBC (Auto) Urine Creatinine Urine Total Protein Coronavirus (PCR) Crossmatch 06/11/20 06/11/20 06/12/20 12:24 17:24 00:21 WBC RBC Hgb Hct MCHC RDW Lymph % (Auto) [place] % (Auto) Eos % (Auto) Lymph # [place] # Lymph # (Auto) [place] # (Auto) Seg Neutrophils % Seg Neuts % (Manual) Lymphocytes % (Manual) Seg Neutrophils # Seg Neutrophils # Man Lymphocytes # (Manual) Monocytes % (Manual) Eosinophils % (Manual) Monocytes # (Manual) Eosinophils # (Manual) D-Dimer Heparin Anti-Xa Level ABG pH POC ABG pCO2 POC ABG pO2 ABG pO2 ABG HCO3 ABG O2 Saturation ABG Base Excess ABG Hemoglobin ABG Oxyhemoglobin VBG pH Oxyhemoglobin Sodium Potassium Chloride Carbon Dioxide BUN Creatinine Glucose POC Glucose 119 H 126 H 117 H Lactic Acid Calcium Ferritin AST Alkaline Phosphatase Magnesium Lactate Dehydrogenase Total Creatine Kinase CK-MB (CK-2) C-Reactive Protein Total Protein Albumin Troponin T HDL Cholesterol Urine WBC (Auto) Urine Creatinine Urine Total Protein Coronavirus (PCR) Crossmatch 06/12/20 06/12/20 06/12/20 02:46 02:46 05:46 WBC 13.2 H RBC 2.83 L Hgb 8.3 L Hct 24.3 L MCHC RDW 16.6 H Lymph % (Auto) 6.2 L [place] % (Auto) 9.5 H Eos % (Auto) Lymph # 0.8 L [place] # 1.3 H Lymph # (Auto) [place] # (Auto) Seg Neutrophils % 81.9 H Seg Neuts % (Manual) Lymphocytes % (Manual) Seg Neutrophils # 10.9 H Seg Neutrophils # Man Lymphocytes # (Manual) Monocytes % (Manual) Eosinophils % (Manual) Monocytes # (Manual) Eosinophils # (Manual) D-Dimer Heparin Anti-Xa Level ABG pH POC ABG pCO2 POC ABG pO2 ABG pO2 ABG HCO3 ABG O2 Saturation ABG Base Excess ABG Hemoglobin ABG Oxyhemoglobin VBG pH Oxyhemoglobin Sodium Potassium 3.5 L Chloride Carbon Dioxide BUN 77 H Creatinine 1.3 H Glucose POC Glucose 132 H Lactic Acid Calcium 8.3 L Ferritin AST Alkaline Phosphatase Magnesium Lactate Dehydrogenase Total Creatine Kinase CK-MB (CK-2) C-Reactive Protein Total Protein Albumin Troponin T HDL Cholesterol Urine WBC (Auto) Urine Creatinine Urine Total Protein Coronavirus (PCR) Crossmatch 06/12/20 06/12/20 06/12/20 09:20 12:16 17:48 WBC RBC Hgb Hct MCHC RDW Lymph % (Auto) [place] % (Auto) Eos % (Auto) Lymph # [place] # Lymph # (Auto) [place] # (Auto) Seg Neutrophils % Seg Neuts % (Manual) Lymphocytes % (Manual) Seg Neutrophils # Seg Neutrophils # Man Lymphocytes # (Manual) Monocytes % (Manual) Eosinophils % (Manual) Monocytes # (Manual) Eosinophils # (Manual) D-Dimer Heparin Anti-Xa Level ABG pH POC ABG pCO2 POC ABG pO2 ABG pO2 91.1 H ABG HCO3 ABG O2 Saturation ABG Base Excess ABG Hemoglobin ABG Oxyhemoglobin VBG pH Oxyhemoglobin 94.8 L Sodium Potassium Chloride Carbon Dioxide BUN Creatinine Glucose POC Glucose 167 H 182 H Lactic Acid Calcium Ferritin AST Alkaline Phosphatase Magnesium Lactate Dehydrogenase Total Creatine Kinase CK-MB (CK-2) C-Reactive Protein Total Protein Albumin Troponin T HDL Cholesterol Urine WBC (Auto) Urine Creatinine Urine Total Protein Coronavirus (PCR) Crossmatch 06/13/20 06/13/20 06/13/20 00:08 05:37 09:09 WBC RBC Hgb Hct MCHC RDW Lymph % (Auto) [place] % (Auto) Eos % (Auto) Lymph # [place] # Lymph # (Auto) [place] # (Auto) Seg Neutrophils % Seg Neuts % (Manual) Lymphocytes % (Manual) Seg Neutrophils # Seg Neutrophils # Man Lymphocytes # (Manual) Monocytes % (Manual) Eosinophils % (Manual) Monocytes # (Manual) Eosinophils # (Manual) D-Dimer Heparin Anti-Xa Level 0.86 H ABG pH POC ABG pCO2 POC ABG pO2 ABG pO2 ABG HCO3 ABG O2 Saturation ABG Base Excess ABG Hemoglobin ABG Oxyhemoglobin VBG pH Oxyhemoglobin Sodium Potassium Chloride Carbon Dioxide BUN Creatinine Glucose POC Glucose 142 H 119 H Lactic Acid Calcium Ferritin AST Alkaline Phosphatase Magnesium Lactate Dehydrogenase Total Creatine Kinase CK-MB (CK-2) C-Reactive Protein Total Protein Albumin Troponin T HDL Cholesterol Urine WBC (Auto) Urine Creatinine Urine Total Protein Coronavirus (PCR) Crossmatch 06/13/20 06/13/20 06/13/20 12:28 17:55 21:17 WBC RBC Hgb Hct MCHC RDW Lymph % (Auto) [place] % (Auto) Eos % (Auto) Lymph # [place] # Lymph # (Auto) [place] # (Auto) Seg Neutrophils % Seg Neuts % (Manual) Lymphocytes % (Manual) Seg Neutrophils # Seg Neutrophils # Man Lymphocytes # (Manual) Monocytes % (Manual) Eosinophils % (Manual) Monocytes # (Manual) Eosinophils # (Manual) D-Dimer Heparin Anti-Xa Level ABG pH POC ABG pCO2 POC ABG pO2 ABG pO2 ABG HCO3 ABG O2 Saturation ABG Base Excess ABG Hemoglobin ABG Oxyhemoglobin VBG pH Oxyhemoglobin Sodium Potassium Chloride Carbon Dioxide BUN 61 H Creatinine Glucose 131 H POC Glucose 165 H 174 H Lactic Acid Calcium Ferritin AST Alkaline Phosphatase Magnesium Lactate Dehydrogenase Total Creatine Kinase CK-MB (CK-2) C-Reactive Protein Total Protein Albumin Troponin T HDL Cholesterol Urine WBC (Auto) Urine Creatinine Urine Total Protein Coronavirus (PCR) Crossmatch 06/13/20 06/13/20 06/14/20 21:17 23:50 05:34 WBC RBC Hgb Hct MCHC RDW Lymph % (Auto) [place] % (Auto) Eos % (Auto) Lymph # [place] # Lymph # (Auto) [place] # (Auto) Seg Neutrophils % Seg Neuts % (Manual) Lymphocytes % (Manual) Seg Neutrophils # Seg Neutrophils # Man Lymphocytes # (Manual) Monocytes % (Manual) Eosinophils % (Manual) Monocytes # (Manual) Eosinophils # (Manual) D-Dimer Heparin Anti-Xa Level 0.72 H ABG pH POC ABG pCO2 POC ABG pO2 ABG pO2 ABG HCO3 ABG O2 Saturation ABG Base Excess ABG Hemoglobin ABG Oxyhemoglobin VBG pH Oxyhemoglobin Sodium 146 H Potassium Chloride 107.6 H Carbon Dioxide BUN 61 H Creatinine 1.3 H Glucose 135 H POC Glucose 146 H Lactic Acid Calcium Ferritin AST Alkaline Phosphatase Magnesium Lactate Dehydrogenase Total Creatine Kinase CK-MB (CK-2) C-Reactive Protein Total Protein Albumin Troponin T HDL Cholesterol Urine WBC (Auto) Urine Creatinine Urine Total Protein Coronavirus (PCR) Crossmatch 06/14/20 06/14/20 06/14/20 06:11 09:28 11:30 WBC RBC Hgb Hct MCHC RDW Lymph % (Auto) [place] % (Auto) Eos % (Auto) Lymph # [place] # Lymph # (Auto) [place] # (Auto) Seg Neutrophils % Seg Neuts % (Manual) Lymphocytes % (Manual) Seg Neutrophils # Seg Neutrophils # Man Lymphocytes # (Manual) Monocytes % (Manual) Eosinophils % (Manual) Monocytes # (Manual) Eosinophils # (Manual) D-Dimer Heparin Anti-Xa Level 0.90 H ABG pH POC ABG pCO2 POC ABG pO2 ABG pO2 ABG HCO3 ABG O2 Saturation ABG Base Excess ABG Hemoglobin ABG Oxyhemoglobin VBG pH Oxyhemoglobin Sodium Potassium Chloride Carbon Dioxide BUN Creatinine Glucose POC Glucose 141 H 186 H Lactic Acid Calcium Ferritin AST Alkaline Phosphatase Magnesium Lactate Dehydrogenase Total Creatine Kinase CK-MB (CK-2) C-Reactive Protein Total Protein Albumin Troponin T HDL Cholesterol Urine WBC (Auto) Urine Creatinine Urine Total Protein Coronavirus (PCR) Crossmatch 06/14/20 06/14/20 06/14/20 16:07 18:16 23:51 WBC RBC Hgb Hct MCHC RDW Lymph % (Auto) [place] % (Auto) Eos % (Auto) Lymph # [place] # Lymph # (Auto) [place] # (Auto) Seg Neutrophils % Seg Neuts % (Manual) Lymphocytes % (Manual) Seg Neutrophils # Seg Neutrophils # Man Lymphocytes # (Manual) Monocytes % (Manual) Eosinophils % (Manual) Monocytes # (Manual) Eosinophils # (Manual) D-Dimer Heparin Anti-Xa Level 0.82 H ABG pH POC ABG pCO2 POC ABG pO2 ABG pO2 ABG HCO3 ABG O2 Saturation ABG Base Excess ABG Hemoglobin ABG Oxyhemoglobin VBG pH Oxyhemoglobin Sodium Potassium Chloride Carbon Dioxide BUN Creatinine Glucose POC Glucose 106 H 154 H Lactic Acid Calcium Ferritin AST Alkaline Phosphatase Magnesium Lactate Dehydrogenase Total Creatine Kinase CK-MB (CK-2) C-Reactive Protein Total Protein Albumin Troponin T HDL Cholesterol Urine WBC (Auto) Urine Creatinine Urine Total Protein Coronavirus (PCR) Crossmatch 06/15/20 06/15/2006/15/20 04:24 04:24 05:59 WBC RBC 2.75 L Hgb 7.9 L Hct 24.0 L MCHC RDW 16.4 H Lymph % (Auto) 12.9 L [place] % (Auto) 8.7 H Eos % (Auto) 4.6 H Lymph # 1.1 L [place] # Lymph # (Auto) [place] # (Auto) Seg Neutrophils % 73.2 H Seg Neuts % (Manual) Lymphocytes % (Manual) Seg Neutrophils # Seg Neutrophils # Man Lymphocytes # (Manual) Monocytes % (Manual) Eosinophils % (Manual) Monocytes # (Manual) Eosinophils # (Manual) D-Dimer Heparin Anti-Xa Level ABG pH POC ABG pCO2 POC ABG pO2 ABG pO2 ABG HCO3 ABG O2 Saturation ABG Base Excess ABG Hemoglobin ABG Oxyhemoglobin VBG pH Oxyhemoglobin Sodium Potassium 3.4 L Chloride Carbon Dioxide BUN 55 H Creatinine 1.3 H Glucose 142 H POC Glucose 131 H Lactic Acid Calcium Ferritin AST Alkaline Phosphatase Magnesium Lactate Dehydrogenase Total Creatine Kinase CK-MB (CK-2) C-Reactive Protein Total Protein Albumin Troponin T HDL Cholesterol Urine WBC (Auto) Urine Creatinine Urine Total Protein Coronavirus (PCR) Crossmatch 06/15/20 06/15/20 06/16/20 12:33 17:07 00:22 WBC RBC Hgb Hct MCHC RDW Lymph % (Auto) [place] % (Auto) Eos % (Auto) Lymph # [place] # Lymph # (Auto) [place] # (Auto) Seg Neutrophils % Seg Neuts % (Manual) Lymphocytes % (Manual) Seg Neutrophils # Seg Neutrophils # Man Lymphocytes # (Manual) Monocytes % (Manual) Eosinophils % (Manual) Monocytes # (Manual) Eosinophils # (Manual) D-Dimer Heparin Anti-Xa Level 0.21 L ABG pH POC ABG pCO2 POC ABG pO2 ABG pO2 ABG HCO3 ABG O2 Saturation ABG Base Excess ABG Hemoglobin ABG Oxyhemoglobin VBG pH Oxyhemoglobin Sodium Potassium Chloride Carbon Dioxide BUN Creatinine Glucose POC Glucose 180 H 185 H Lactic Acid Calcium Ferritin AST Alkaline Phosphatase Magnesium Lactate Dehydrogenase Total Creatine Kinase CK-MB (CK-2) C-Reactive Protein Total Protein Albumin Troponin T HDL Cholesterol Urine WBC (Auto) Urine Creatinine Urine Total Protein Coronavirus (PCR) Crossmatch 06/16/20 06/16/20 06/16/20 01:45 08:06 09:15 WBC RBC Hgb Hct MCHC RDW Lymph % (Auto) [place] % (Auto) Eos % (Auto) Lymph # [place] # Lymph # (Auto) [place] # (Auto) Seg Neutrophils % Seg Neuts % (Manual) Lymphocytes % (Manual) Seg Neutrophils # Seg Neutrophils # Man Lymphocytes # (Manual) Monocytes % (Manual) Eosinophils % (Manual) Monocytes # (Manual) Eosinophils # (Manual) D-Dimer Heparin Anti-Xa Level ABG pH POC ABG pCO2 POC ABG pO2 ABG pO2 ABG HCO3 ABG O2 Saturation ABG Base Excess ABG Hemoglobin ABG Oxyhemoglobin VBG pH Oxyhemoglobin Sodium Potassium Chloride Carbon Dioxide BUN 49 H Creatinine Glucose 154 H POC Glucose 140 H 171 H Lactic Acid Calcium Ferritin AST Alkaline Phosphatase Magnesium Lactate Dehydrogenase Total Creatine Kinase CK-MB (CK-2) C-Reactive Protein Total Protein Albumin Troponin T HDL Cholesterol Urine WBC (Auto) Urine Creatinine Urine Total Protein Coronavirus (PCR) Crossmatch 06/16/20 06/16/20 06/16/20 10:46 12:33 17:54 WBC RBC Hgb Hct MCHC RDW Lymph % (Auto) [place] % (Auto) Eos % (Auto) Lymph # [place] # Lymph # (Auto) [place] # (Auto) Seg Neutrophils % Seg Neuts % (Manual) Lymphocytes % (Manual) Seg Neutrophils # Seg Neutrophils # Man Lymphocytes # (Manual) Monocytes % (Manual) Eosinophils % (Manual) Monocytes # (Manual) Eosinophils # (Manual) D-Dimer Heparin Anti-Xa Level 0.12 L ABG pH POC ABG pCO2 POC ABG pO2 ABG pO2 ABG HCO3 ABG O2 Saturation ABG Base Excess ABG Hemoglobin ABG Oxyhemoglobin VBG pH Oxyhemoglobin Sodium Potassium Chloride Carbon Dioxide BUN Creatinine Glucose POC Glucose 166 H 151 H Lactic Acid Calcium Ferritin AST Alkaline Phosphatase Magnesium Lactate Dehydrogenase Total Creatine Kinase CK-MB (CK-2) C-Reactive Protein Total Protein Albumin Troponin T HDL Cholesterol Urine WBC (Auto) Urine Creatinine Urine Total Protein Coronavirus (PCR) Crossmatch 06/16/20 06/17/20 06/17/20 18:47 00:00 02:19 WBC RBC Hgb Hct MCHC RDW Lymph % (Auto) [place] % (Auto) Eos % (Auto) Lymph # [place] # Lymph # (Auto) [place] # (Auto) Seg Neutrophils % Seg Neuts % (Manual) Lymphocytes % (Manual) Seg Neutrophils # Seg Neutrophils # Man Lymphocytes # (Manual) Monocytes % (Manual) Eosinophils % (Manual) Monocytes # (Manual) Eosinophils # (Manual) D-Dimer Heparin Anti-Xa Level 0.73 H 0.77 H ABG pH POC ABG pCO2 POC ABG pO2 ABG pO2 ABG HCO3 ABG O2 Saturation ABG Base Excess ABG Hemoglobin ABG Oxyhemoglobin VBG pH Oxyhemoglobin Sodium Potassium Chloride Carbon Dioxide BUN Creatinine Glucose POC Glucose 139 H Lactic Acid Calcium Ferritin AST Alkaline Phosphatase Magnesium Lactate Dehydrogenase Total Creatine Kinase CK-MB (CK-2) C-Reactive Protein Total Protein Albumin Troponin T HDL Cholesterol Urine WBC (Auto) Urine Creatinine Urine Total Protein Coronavirus (PCR) Crossmatch 06/17/20 06/17/20 06/17/20 06:07 11:42 16:43 WBC RBC Hgb Hct MCHC RDW Lymph % (Auto) [place] % (Auto) Eos % (Auto) Lymph # [place] # Lymph # (Auto) [place] # (Auto) Seg Neutrophils % Seg Neuts % (Manual) Lymphocytes % (Manual) Seg Neutrophils # Seg Neutrophils # Man Lymphocytes # (Manual) Monocytes % (Manual) Eosinophils % (Manual) Monocytes # (Manual) Eosinophils # (Manual) D-Dimer Heparin Anti-Xa Level 0.73 H ABG pH POC ABG pCO2 POC ABG pO2 ABG pO2 ABG HCO3 ABG O2 Saturation ABG Base Excess ABG Hemoglobin ABG Oxyhemoglobin VBG pH Oxyhemoglobin Sodium Potassium Chloride Carbon Dioxide BUN Creatinine Glucose POC Glucose 169 H 169 H Lactic Acid Calcium Ferritin AST Alkaline Phosphatase Magnesium Lactate Dehydrogenase Total Creatine Kinase CK-MB (CK-2) C-Reactive Protein Total Protein Albumin Troponin T HDL Cholesterol Urine WBC (Auto) Urine Creatinine Urine Total Protein Coronavirus (PCR) Crossmatch 06/17/20 06/17/20 06/17/20 18:18 23:08 23:16 WBC RBC Hgb Hct MCHC RDW Lymph % (Auto) [place] % (Auto) Eos % (Auto) Lymph # [place] # Lymph # (Auto) [place] # (Auto) Seg Neutrophils % Seg Neuts % (Manual) Lymphocytes % (Manual) Seg Neutrophils # Seg Neutrophils # Man Lymphocytes # (Manual) Monocytes % (Manual) Eosinophils % (Manual) Monocytes # (Manual) Eosinophils # (Manual) D-Dimer Heparin Anti-Xa Level 0.71 H ABG pH POC ABG pCO2 POC ABG pO2 ABG pO2 ABG HCO3 ABG O2 Saturation ABG Base Excess ABG Hemoglobin ABG Oxyhemoglobin VBG pH Oxyhemoglobin Sodium Potassium Chloride Carbon Dioxide BUN Creatinine Glucose POC Glucose 159 H 134 H Lactic Acid Calcium Ferritin AST Alkaline Phosphatase Magnesium Lactate Dehydrogenase Total Creatine Kinase CK-MB (CK-2) C-Reactive Protein Total Protein Albumin Troponin T HDL Cholesterol Urine WBC (Auto) Urine Creatinine Urine Total Protein Coronavirus (PCR) Crossmatch 06/18/20 06/18/20 06/18/20 04:42 05:52 11:50 WBC RBC Hgb Hct MCHC RDW Lymph % (Auto) [place] % (Auto) Eos % (Auto) Lymph # [place] # Lymph # (Auto) [place] # (Auto) Seg Neutrophils % Seg Neuts % (Manual) Lymphocytes % (Manual) Seg Neutrophils # Seg Neutrophils # Man Lymphocytes # (Manual) Monocytes % (Manual) Eosinophils % (Manual) Monocytes # (Manual) Eosinophils # (Manual) D-Dimer Heparin Anti-Xa Level ABG pH POC ABG pCO2 POC ABG pO2 ABG pO2 ABG HCO3 ABG O2 Saturation ABG Base Excess ABG Hemoglobin ABG Oxyhemoglobin VBG pH Oxyhemoglobin Sodium Potassium Chloride Carbon Dioxide BUN 44 H Creatinine Glucose 115 H POC Glucose 171 H 167 H Lactic Acid Calcium Ferritin AST Alkaline Phosphatase Magnesium Lactate Dehydrogenase Total Creatine Kinase CK-MB (CK-2) C-Reactive Protein Total Protein Albumin Troponin T HDL Cholesterol Urine WBC (Auto) Urine Creatinine Urine Total Protein Coronavirus (PCR) Crossmatch 06/18/20 06/19/20 06/19/20 23:46 05:48 07:52 WBC RBC Hgb Hct MCHC RDW Lymph % (Auto) [place] % (Auto) Eos % (Auto) Lymph # [place] # Lymph # (Auto) [place] # (Auto) Seg Neutrophils % Seg Neuts % (Manual) Lymphocytes % (Manual) Seg Neutrophils # Seg Neutrophils # Man Lymphocytes # (Manual) Monocytes % (Manual) Eosinophils % (Manual) Monocytes # (Manual) Eosinophils # (Manual) D-Dimer Heparin Anti-Xa Level ABG pH POC ABG pCO2 POC ABG pO2 ABG pO2 ABG HCO3 ABG O2 Saturation ABG Base Excess ABG Hemoglobin ABG Oxyhemoglobin VBG pH Oxyhemoglobin Sodium Potassium Chloride Carbon Dioxide BUN Creatinine Glucose POC Glucose 130 H 207 H 175 H Lactic Acid Calcium Ferritin AST Alkaline Phosphatase Magnesium Lactate Dehydrogenase Total Creatine Kinase CK-MB (CK-2) C-Reactive Protein Total Protein Albumin Troponin T HDL Cholesterol Urine WBC (Auto) Urine Creatinine Urine Total Protein Coronavirus (PCR) Crossmatch 06/19/20 06/19/20 06/20/20 11:42 22:54 05:17 WBC RBC Hgb Hct MCHC RDW Lymph % (Auto) [place] % (Auto) Eos % (Auto) Lymph # [place] # Lymph # (Auto) [place] # (Auto) Seg Neutrophils % Seg Neuts % (Manual) Lymphocytes % (Manual) Seg Neutrophils # Seg Neutrophils # Man Lymphocytes # (Manual) Monocytes % (Manual) Eosinophils % (Manual) Monocytes # (Manual) Eosinophils # (Manual) D-Dimer Heparin Anti-Xa Level ABG pH POC ABG pCO2 POC ABG pO2 ABG pO2 ABG HCO3 ABG O2 Saturation ABG Base Excess ABG Hemoglobin ABG Oxyhemoglobin VBG pH Oxyhemoglobin Sodium Potassium Chloride Carbon Dioxide BUN Creatinine Glucose POC Glucose 166 H 135 H 218 H Lactic Acid Calcium Ferritin AST Alkaline Phosphatase Magnesium Lactate Dehydrogenase Total Creatine Kinase CK-MB (CK-2) C-Reactive Protein Total Protein Albumin Troponin T HDL Cholesterol Urine WBC (Auto) Urine Creatinine Urine Total Protein Coronavirus (PCR) Crossmatch 06/20/20 06/20/20 06/20/20 12:04 16:25 16:35 WBC RBC Hgb Hct MCHC RDW Lymph % (Auto) [place] % (Auto) Eos % (Auto) Lymph # [place] # Lymph # (Auto) [place] # (Auto) Seg Neutrophils % Seg Neuts % (Manual) Lymphocytes % (Manual) Seg Neutrophils # Seg Neutrophils # Man Lymphocytes # (Manual) Monocytes % (Manual) Eosinophils % (Manual) Monocytes # (Manual) Eosinophils # (Manual) D-Dimer Heparin Anti-Xa Level ABG pH POC ABG pCO2 POC ABG pO2 ABG pO2 59.6 L ABG HCO3 28.7 H ABG O2 Saturation 93.5 L ABG Base Excess 3.4 H ABG Hemoglobin 7.2 L ABG Oxyhemoglobin VBG pH Oxyhemoglobin 91.3 L Sodium Potassium Chloride Carbon Dioxide BUN Creatinine Glucose POC Glucose 194 H 137 H Lactic Acid Calcium Ferritin AST Alkaline Phosphatase Magnesium Lactate Dehydrogenase Total Creatine Kinase CK-MB (CK-2) C-Reactive Protein Total Protein Albumin Troponin T HDL Cholesterol Urine WBC (Auto) Urine Creatinine Urine Total Protein Coronavirus (PCR) Crossmatch 06/20/20 06/21/20 06/21/20 23:59 06:25 12:01 WBC RBC Hgb Hct MCHC RDW Lymph % (Auto) [place] % (Auto) Eos % (Auto) Lymph # [place] # Lymph # (Auto) [place] # (Auto) Seg Neutrophils % Seg Neuts % (Manual) Lymphocytes % (Manual) Seg Neutrophils # Seg Neutrophils # Man Lymphocytes # (Manual) Monocytes % (Manual) Eosinophils % (Manual) Monocytes # (Manual) Eosinophils # (Manual) D-Dimer Heparin Anti-Xa Level ABG pH POC ABG pCO2 POC ABG pO2 ABG pO2 ABG HCO3 ABG O2 Saturation ABG Base Excess ABG Hemoglobin ABG Oxyhemoglobin VBG pH Oxyhemoglobin Sodium Potassium Chloride Carbon Dioxide BUN Creatinine Glucose POC Glucose 156 H 177 H 195 H Lactic Acid Calcium Ferritin AST Alkaline Phosphatase Magnesium Lactate Dehydrogenase Total Creatine Kinase CK-MB (CK-2) C-Reactive Protein Total Protein Albumin Troponin T HDL Cholesterol Urine WBC (Auto) Urine Creatinine Urine Total Protein Coronavirus (PCR) Crossmatch 06/21/20 06/21/20 06/22/20 17:04 21:51 05:06 WBC RBC Hgb Hct MCHC RDW Lymph % (Auto) [place] % (Auto) Eos % (Auto) Lymph # [place] # Lymph # (Auto) [place] # (Auto) Seg Neutrophils % Seg Neuts % (Manual) Lymphocytes % (Manual) Seg Neutrophils # Seg Neutrophils # Man Lymphocytes # (Manual) Monocytes % (Manual) Eosinophils % (Manual) Monocytes # (Manual) Eosinophils # (Manual) D-Dimer Heparin Anti-Xa Level ABG pH POC ABG pCO2 POC ABG pO2 ABG pO2 ABG HCO3 ABG O2 Saturation ABG Base Excess ABG Hemoglobin ABG Oxyhemoglobin VBG pH Oxyhemoglobin Sodium Potassium Chloride Carbon Dioxide BUN Creatinine Glucose POC Glucose 156 H 154 H 167 H Lactic Acid Calcium Ferritin AST Alkaline Phosphatase Magnesium Lactate Dehydrogenase Total Creatine Kinase CK-MB (CK-2) C-Reactive Protein Total Protein Albumin Troponin T HDL Cholesterol Urine WBC (Auto) Urine Creatinine Urine Total Protein Coronavirus (PCR) Crossmatch 06/22/20 06/22/20 06/22/20 11:20 15:27 16:58 WBC RBC Hgb Hct MCHC RDW Lymph % (Auto) [place] % (Auto) Eos % (Auto) Lymph # [place] # Lymph # (Auto) [place] # (Auto) Seg Neutrophils % Seg Neuts % (Manual) Lymphocytes % (Manual) Seg Neutrophils # Seg Neutrophils # Man Lymphocytes # (Manual) Monocytes % (Manual) Eosinophils % (Manual) Monocytes # (Manual) Eosinophils # (Manual) D-Dimer Heparin Anti-Xa Level ABG pH 7.206 L POC ABG pCO2 79.9 H POC ABG pO2 ABG pO2 ABG HCO3 ABG O2 Saturation ABG Base Excess ABG Hemoglobin 8.3 L ABG Oxyhemoglobin VBG pH Oxyhemoglobin Sodium Potassium Chloride Carbon Dioxide BUN Creatinine Glucose POC Glucose 181 H 230 H Lactic Acid Calcium Ferritin AST Alkaline Phosphatase Magnesium Lactate Dehydrogenase Total Creatine Kinase CK-MB (CK-2) C-Reactive Protein Total Protein Albumin Troponin T HDL Cholesterol Urine WBC (Auto) Urine Creatinine Urine Total Protein Coronavirus (PCR) Crossmatch 06/22/20 06/23/20 06/23/20 22:26 05:49 05:49 WBC RBC 2.58 L Hgb 7.4 L Hct 23.2 L MCHC RDW 17.0 H Lymph % (Auto) [place] % (Auto) 11.2 H Eos % (Auto) Lymph # 1.0 L [place] # Lymph # (Auto) [place] # (Auto) Seg Neutrophils % Seg Neuts % (Manual) Lymphocytes % (Manual) Seg Neutrophils # Seg Neutrophils # Man Lymphocytes # (Manual) Monocytes % (Manual) Eosinophils % (Manual) Monocytes # (Manual) Eosinophils # (Manual) D-Dimer Heparin Anti-Xa Level ABG pH POC ABG pCO2 POC ABG pO2 ABG pO2 ABG HCO3 ABG O2 Saturation ABG Base Excess ABG Hemoglobin ABG Oxyhemoglobin VBG pH Oxyhemoglobin Sodium Potassium Chloride Carbon Dioxide BUN 68 H Creatinine 2.4 H Glucose 198 H POC Glucose 195 H Lactic Acid Calcium Ferritin AST Alkaline Phosphatase Magnesium Lactate Dehydrogenase Total Creatine Kinase CK-MB (CK-2) C-Reactive Protein Total Protein Albumin Troponin T HDL Cholesterol Urine WBC (Auto) Urine Creatinine Urine Total Protein Coronavirus (PCR) Crossmatch 06/23/20 06/23/20 06/23/20 05:50 12:29 12:34 WBC RBC Hgb Hct MCHC RDW Lymph % (Auto) [place] % (Auto) Eos % (Auto) Lymph # [place] # Lymph # (Auto) [place] # (Auto) Seg Neutrophils % Seg Neuts % (Manual) Lymphocytes % (Manual) Seg Neutrophils # Seg Neutrophils # Man Lymphocytes # (Manual) Monocytes % (Manual) Eosinophils % (Manual) Monocytes # (Manual) Eosinophils # (Manual) D-Dimer Heparin Anti-Xa Level ABG pH POC ABG pCO2 54.7 H POC ABG pO2 68.8 L ABG pO2 ABG HCO3 ABG O2 Saturation ABG Base Excess ABG Hemoglobin 9.8 L ABG Oxyhemoglobin 92.6 L VBG pH Oxyhemoglobin Sodium Potassium Chloride Carbon Dioxide BUN Creatinine Glucose POC Glucose 202 H 218 H Lactic Acid Calcium Ferritin AST Alkaline Phosphatase Magnesium Lactate Dehydrogenase Total Creatine Kinase CK-MB (CK-2) C-Reactive Protein Total Protein Albumin Troponin T HDL Cholesterol Urine WBC (Auto) Urine Creatinine Urine Total Protein Coronavirus (PCR) Crossmatch 06/23/20 06/23/20 06/24/20 16:02 22:22 01:06 WBC RBC Hgb Hct MCHC RDW Lymph % (Auto) [place] % (Auto) Eos % (Auto) Lymph # [place] # Lymph # (Auto) [place] # (Auto) Seg Neutrophils % Seg Neuts % (Manual) Lymphocytes % (Manual) Seg Neutrophils # Seg Neutrophils # Man Lymphocytes # (Manual) Monocytes % (Manual) Eosinophils % (Manual) Monocytes # (Manual) Eosinophils # (Manual) D-Dimer Heparin Anti-Xa Level ABG pH POC ABG pCO2 POC ABG pO2 ABG pO2 ABG HCO3 ABG O2 Saturation ABG Base Excess ABG Hemoglobin ABG Oxyhemoglobin VBG pH Oxyhemoglobin Sodium Potassium Chloride Carbon Dioxide BUN Creatinine Glucose POC Glucose 190 H 166 H 171 H Lactic Acid Calcium Ferritin AST Alkaline Phosphatase Magnesium Lactate Dehydrogenase Total Creatine Kinase CK-MB (CK-2) C-Reactive Protein Total Protein Albumin Troponin T HDL Cholesterol Urine WBC (Auto) Urine Creatinine Urine Total Protein Coronavirus (PCR) Crossmatch 06/24/20 06/24/20 06/24/20 04:48 05:35 11:48 WBC RBC Hgb Hct MCHC RDW Lymph % (Auto) [place] % (Auto) Eos % (Auto) Lymph # [place] # Lymph # (Auto) [place] # (Auto) Seg Neutrophils % Seg Neuts % (Manual) Lymphocytes % (Manual) Seg Neutrophils # Seg Neutrophils # Man Lymphocytes # (Manual) Monocytes % (Manual) Eosinophils % (Manual) Monocytes # (Manual) Eosinophils # (Manual) D-Dimer Heparin Anti-Xa Level ABG pH POC ABG pCO2 POC ABG pO2 ABG pO2 ABG HCO3 ABG O2 Saturation ABG Base Excess ABG Hemoglobin ABG Oxyhemoglobin VBG pH Oxyhemoglobin Sodium Potassium Chloride Carbon Dioxide BUN 75 H Creatinine 2.6 H Glucose 179 H POC Glucose 172 H 153 H Lactic Acid Calcium Ferritin AST Alkaline Phosphatase Magnesium Lactate Dehydrogenase Total Creatine Kinase CK-MB (CK-2) C-Reactive Protein Total Protein Albumin Troponin T HDL Cholesterol Urine WBC (Auto) Urine Creatinine Urine Total Protein Coronavirus (PCR) Crossmatch 06/24/20 06/24/20 06/25/20 16:38 21:52 12:00 WBC RBC Hgb Hct MCHC RDW Lymph % (Auto) [place] % (Auto) Eos % (Auto) Lymph # [place] # Lymph # (Auto) [place] # (Auto) Seg Neutrophils % Seg Neuts % (Manual) Lymphocytes % (Manual) Seg Neutrophils # Seg Neutrophils # Man Lymphocytes # (Manual) Monocytes % (Manual) Eosinophils % (Manual) Monocytes # (Manual) Eosinophils # (Manual) D-Dimer Heparin Anti-Xa Level ABG pH POC ABG pCO2 POC ABG pO2 ABG pO2 ABG HCO3 ABG O2 Saturation ABG Base Excess ABG Hemoglobin ABG Oxyhemoglobin VBG pH Oxyhemoglobin Sodium Potassium Chloride Carbon Dioxide BUN Creatinine Glucose POC Glucose 123 H 115 H 203 H Lactic Acid Calcium Ferritin AST Alkaline Phosphatase Magnesium Lactate Dehydrogenase Total Creatine Kinase CK-MB (CK-2) C-Reactive Protein Total Protein Albumin Troponin T HDL Cholesterol Urine WBC (Auto) Urine Creatinine Urine Total Protein Coronavirus (PCR) Crossmatch 06/25/20 06/25/20 06/25/20 15:43 16:37 23:02 WBC RBC Hgb Hct MCHC RDW Lymph % (Auto) [place] % (Auto) Eos % (Auto) Lymph # [place] # Lymph # (Auto) [place] # (Auto) Seg Neutrophils % Seg Neuts % (Manual) Lymphocytes % (Manual) Seg Neutrophils # Seg Neutrophils # Man Lymphocytes # (Manual) Monocytes % (Manual) Eosinophils % (Manual) Monocytes # (Manual) Eosinophils # (Manual) D-Dimer Heparin Anti-Xa Level ABG pH POC ABG pCO2 POC ABG pO2 ABG pO2 ABG HCO3 ABG O2 Saturation ABG Base Excess ABG Hemoglobin ABG Oxyhemoglobin VBG pH Oxyhemoglobin Sodium Potassium Chloride Carbon Dioxide BUN 71 H Creatinine 1.8 H Glucose 170 H POC Glucose 191 H 126 H Lactic Acid Calcium 8.2 L Ferritin AST Alkaline Phosphatase Magnesium Lactate Dehydrogenase Total Creatine Kinase CK-MB (CK-2) C-Reactive Protein Total Protein Albumin Troponin T HDL Cholesterol Urine WBC (Auto) Urine Creatinine Urine Total Protein Coronavirus (PCR) Crossmatch 06/26/20 06/26/20 06/26/20 06:34 06:34 09:27 WBC RBC 2.41 L Hgb 6.9 L Hct 21.5 L MCHC RDW 16.7 H Lymph % (Auto) 10.9 L [place] % (Auto) 9.6 H Eos % (Auto) Lymph # 0.7 L [place] # Lymph # (Auto) [place] # (Auto) Seg Neutrophils % 75.4 H Seg Neuts % (Manual) Lymphocytes % (Manual) Seg Neutrophils # Seg Neutrophils # Man Lymphocytes # (Manual) Monocytes % (Manual) Eosinophils % (Manual) Monocytes # (Manual) Eosinophils # (Manual) D-Dimer Heparin Anti-Xa Level ABG pH POC ABG pCO2 POC ABG pO2 ABG pO2 ABG HCO3 ABG O2 Saturation ABG Base Excess ABG Hemoglobin ABG Oxyhemoglobin VBG pH Oxyhemoglobin Sodium Potassium Chloride Carbon Dioxide BUN 77 H Creatinine 1.9 H Glucose 190 H POC Glucose Lactic Acid Calcium Ferritin AST Alkaline Phosphatase Magnesium Lactate Dehydrogenase Total Creatine Kinase CK-MB (CK-2) C-Reactive Protein Total Protein Albumin Troponin T HDL Cholesterol Urine WBC (Auto) Urine Creatinine Urine Total Protein Coronavirus (PCR) Crossmatch See Detail 06/26/20 06/26/20 06/26/20 12:15 16:28 17:28 WBC RBC Hgb Hct MCHC RDW Lymph % (Auto) [place] % (Auto) Eos % (Auto) Lymph # [place] # Lymph # (Auto) [place] # (Auto) Seg Neutrophils % Seg Neuts % (Manual) Lymphocytes % (Manual) Seg Neutrophils # Seg Neutrophils # Man Lymphocytes # (Manual) Monocytes % (Manual) Eosinophils % (Manual) Monocytes # (Manual) Eosinophils # (Manual) D-Dimer Heparin Anti-Xa Level ABG pH POC ABG pCO2 POC ABG pO2 ABG pO2 ABG HCO3 ABG O2 Saturation ABG Base Excess ABG Hemoglobin ABG Oxyhemoglobin VBG pH Oxyhemoglobin Sodium Potassium Chloride Carbon Dioxide BUN Creatinine Glucose POC Glucose 187 H 149 H 189 H Lactic Acid Calcium Ferritin AST Alkaline Phosphatase Magnesium Lactate Dehydrogenase Total Creatine Kinase CK-MB (CK-2) C-Reactive Protein Total Protein Albumin Troponin T HDL Cholesterol Urine WBC (Auto) Urine Creatinine Urine Total Protein Coronavirus (PCR) Crossmatch 06/26/20 06/26/20 06/26/20 18:30 18:30 18:30 WBC RBC 2.87 L Hgb 8.2 L Hct 25.9 L MCHC RDW 17.8 H Lymph % (Auto) [place] % (Auto) Eos % (Auto) Lymph # [place] # Lymph # (Auto) [place] # (Auto) Seg Neutrophils % Seg Neuts % (Manual) 83.0 H Lymphocytes % (Manual) 8.0 L Seg Neutrophils # Seg Neutrophils # Man Lymphocytes # (Manual) 0.6 L Monocytes % (Manual) Eosinophils % (Manual) Monocytes # (Manual) Eosinophils # (Manual) D-Dimer Heparin Anti-Xa Level ABG pH POC ABG pCO2 POC ABG pO2 ABG pO2 ABG HCO3 ABG O2 Saturation ABG Base Excess ABG Hemoglobin ABG Oxyhemoglobin VBG pH Oxyhemoglobin Sodium Potassium Chloride Carbon Dioxide BUN 80 H Creatinine 2.1 H Glucose 260 H POC Glucose Lactic Acid 4.30 H* Calcium 8.3 L Ferritin AST Alkaline Phosphatase Magnesium Lactate Dehydrogenase Total Creatine Kinase CK-MB (CK-2) C-Reactive Protein Total Protein Albumin Troponin T HDL Cholesterol Urine WBC (Auto) Urine Creatinine Urine Total Protein Coronavirus (PCR) Crossmatch 06/26/20 06/27/20 06/27/20 18:50 01:00 04:29 WBC RBC Hgb Hct MCHC RDW Lymph % (Auto) [place] % (Auto) Eos % (Auto) Lymph # [place] # Lymph # (Auto) [place] # (Auto) Seg Neutrophils % Seg Neuts % (Manual) Lymphocytes % (Manual) Seg Neutrophils # Seg Neutrophils # Man Lymphocytes # (Manual) Monocytes % (Manual) Eosinophils % (Manual) Monocytes # (Manual) Eosinophils # (Manual) D-Dimer Heparin Anti-Xa Level ABG pH 7.296 L POC ABG pCO2 POC ABG pO2 ABG pO2 116.5 H 200.5 H ABG HCO3 28.4 H ABG O2 Saturation 99.3 H ABG Base Excess 3.7 H ABG Hemoglobin 5.6 L ABG Oxyhemoglobin VBG pH Oxyhemoglobin Sodium Potassium Chloride Carbon Dioxide BUN Creatinine Glucose POC Glucose 123 H Lactic Acid Calcium Ferritin AST Alkaline Phosphatase Magnesium Lactate Dehydrogenase Total Creatine Kinase CK-MB (CK-2) C-Reactive Protein Total Protein Albumin Troponin T HDL Cholesterol Urine WBC (Auto) Urine Creatinine Urine Total Protein Coronavirus (PCR) Crossmatch 06/27/20 06/27/20 06/27/20 05:00 05:00 05:00 WBC RBC 2.75 L Hgb 7.9 L Hct 24.3 L MCHC RDW 17.1 H Lymph % (Auto) 8.5 L [place] % (Auto) 12.6 H Eos % (Auto) Lymph # 0.7 L [place] # 1.0 H Lymph # (Auto) [place] # (Auto) Seg Neutrophils % 77.5 H Seg Neuts % (Manual) Lymphocytes % (Manual) Seg Neutrophils # Seg Neutrophils # Man Lymphocytes # (Manual) Monocytes % (Manual) Eosinophils % (Manual) Monocytes # (Manual) Eosinophils # (Manual) D-Dimer Heparin Anti-Xa Level ABG pH POC ABG pCO2 POC ABG pO2 ABG pO2 ABG HCO3 ABG O2 Saturation ABG Base Excess ABG Hemoglobin ABG Oxyhemoglobin VBG pH Oxyhemoglobin Sodium Potassium Chloride Carbon Dioxide BUN 80 H Creatinine 2.0 H Glucose 129 H POC Glucose Lactic Acid 0.60 L Calcium 7.9 L Ferritin AST Alkaline Phosphatase Magnesium Lactate Dehydrogenase Total Creatine Kinase CK-MB (CK-2) C-Reactive Protein Total Protein Albumin Troponin T HDL Cholesterol Urine WBC (Auto) Urine Creatinine Urine Total Protein Coronavirus (PCR) Crossmatch 06/27/20 06/27/20 06/27/20 05:23 13:46 17:25 WBC RBC Hgb Hct MCHC RDW Lymph % (Auto) [place] % (Auto) Eos % (Auto) Lymph # [place] # Lymph # (Auto) [place] # (Auto) Seg Neutrophils % Seg Neuts % (Manual) Lymphocytes % (Manual) Seg Neutrophils # Seg Neutrophils # Man Lymphocytes # (Manual) Monocytes % (Manual) Eosinophils % (Manual) Monocytes # (Manual) Eosinophils # (Manual) D-Dimer Heparin Anti-Xa Level ABG pH POC ABG pCO2 POC ABG pO2 ABG pO2 ABG HCO3 ABG O2 Saturation ABG Base Excess ABG Hemoglobin ABG Oxyhemoglobin VBG pH Oxyhemoglobin Sodium Potassium Chloride Carbon Dioxide BUN Creatinine Glucose POC Glucose 109 H 158 H 162 H Lactic Acid Calcium Ferritin AST Alkaline Phosphatase Magnesium Lactate Dehydrogenase Total Creatine Kinase CK-MB (CK-2) C-Reactive Protein Total Protein Albumin Troponin T HDL Cholesterol Urine WBC (Auto) Urine Creatinine Urine Total Protein Coronavirus (PCR) Crossmatch 06/27/20 06/27/20 06/28/20 18:43 23:46 04:05 WBC RBC Hgb 7.7 L Hct 22.1 L MCHC RDW Lymph % (Auto) [place] % (Auto) Eos % (Auto) Lymph # [place] # Lymph # (Auto) [place] # (Auto) Seg Neutrophils % Seg Neuts % (Manual) Lymphocytes % (Manual) Seg Neutrophils # Seg Neutrophils # Man Lymphocytes # (Manual) Monocytes % (Manual) Eosinophils % (Manual) Monocytes # (Manual) Eosinophils # (Manual) D-Dimer Heparin Anti-Xa Level ABG pH POC ABG pCO2 POC ABG pO2 ABG pO2 102.7 H ABG HCO3 28.7 H ABG O2 Saturation ABG Base Excess 3.7 H ABG Hemoglobin ABG Oxyhemoglobin VBG pH Oxyhemoglobin Sodium Potassium Chloride Carbon Dioxide BUN Creatinine Glucose POC Glucose 142 H Lactic Acid Calcium Ferritin AST Alkaline Phosphatase Magnesium Lactate Dehydrogenase Total Creatine Kinase CK-MB (CK-2) C-Reactive Protein Total Protein Albumin Troponin T HDL Cholesterol Urine WBC (Auto) Urine Creatinine Urine Total Protein Coronavirus (PCR) Crossmatch 06/28/20 06/28/20 06/28/20 09:47 09:47 12:02 WBC RBC 2.53 L Hgb 7.4 L Hct 22.2 L MCHC RDW 16.8 H Lymph % (Auto) [place] % (Auto) 13.5 H Eos % (Auto) Lymph # 1.1 L [place] # 1.0 H Lymph # (Auto) [place] # (Auto) Seg Neutrophils % Seg Neuts % (Manual) Lymphocytes % (Manual) Seg Neutrophils # Seg Neutrophils # Man Lymphocytes # (Manual) Monocytes % (Manual) Eosinophils % (Manual) Monocytes # (Manual) Eosinophils # (Manual) D-Dimer Heparin Anti-Xa Level ABG pH POC ABG pCO2 POC ABG pO2 ABG pO2 ABG HCO3 ABG O2 Saturation ABG Base Excess ABG Hemoglobin ABG Oxyhemoglobin VBG pH Oxyhemoglobin Sodium Potassium Chloride Carbon Dioxide BUN 80 H Creatinine 1.5 H Glucose 139 H POC Glucose 169 H Lactic Acid Calcium 7.9 L Ferritin AST Alkaline Phosphatase Magnesium Lactate Dehydrogenase Total Creatine Kinase CK-MB (CK-2) C-Reactive Protein Total Protein 5.0 L Albumin 2.1 L Troponin T HDL Cholesterol Urine WBC (Auto) Urine Creatinine Urine Total Protein Coronavirus (PCR) Crossmatch 06/28/20 06/28/20 06/28/20 12:30 12:30 17:24 WBC RBC 2.38 L Hgb 7.3 L Hct 20.9 L MCHC 35 H RDW 16.7 H Lymph % (Auto) [place] % (Auto) Eos % (Auto) Lymph # [place] # Lymph # (Auto) [place] # (Auto) Seg Neutrophils % Seg Neuts % (Manual) Lymphocytes % (Manual) Seg Neutrophils # Seg Neutrophils # Man Lymphocytes # (Manual) Monocytes % (Manual) Eosinophils % (Manual) Monocytes # (Manual) Eosinophils # (Manual) D-Dimer Heparin Anti-Xa Level ABG pH POC ABG pCO2 POC ABG pO2 ABG pO2 ABG HCO3 ABG O2 Saturation ABG Base Excess ABG Hemoglobin ABG Oxyhemoglobin VBG pH Oxyhemoglobin Sodium Potassium Chloride Carbon Dioxide BUN 74 H Creatinine 1.5 H Glucose 143 H POC Glucose 173 H Lactic Acid Calcium 7.5 L Ferritin AST Alkaline Phosphatase Magnesium Lactate Dehydrogenase Total Creatine Kinase CK-MB (CK-2) C-Reactive Protein Total Protein Albumin Troponin T HDL Cholesterol Urine WBC (Auto) Urine Creatinine Urine Total Protein Coronavirus (PCR) Crossmatch 06/29/20 06/29/20 06/29/20 00:02 03:54 04:38 WBC RBC 2.55 L Hgb 7.3 L Hct 22.4 L MCHC RDW 16.4 H Lymph % (Auto) 13.3 L [place] % (Auto) 12.5 H Eos % (Auto) Lymph # 1.1 L [place] # 1.0 H Lymph # (Auto) [place] # (Auto) Seg Neutrophils % Seg Neuts % (Manual) Lymphocytes % (Manual) Seg Neutrophils # Seg Neutrophils # Man Lymphocytes # (Manual) Monocytes % (Manual) Eosinophils % (Manual) Monocytes # (Manual) Eosinophils # (Manual) D-Dimer Heparin Anti-Xa Level ABG pH POC ABG pCO2 POC ABG pO2 ABG pO2 ABG HCO3 26.9 H ABG O2 Saturation ABG Base Excess ABG Hemoglobin 6.9 L ABG Oxyhemoglobin VBG pH Oxyhemoglobin Sodium Potassium Chloride Carbon Dioxide BUN Creatinine Glucose POC Glucose 142 H Lactic Acid Calcium Ferritin AST Alkaline Phosphatase Magnesium Lactate Dehydrogenase Total Creatine Kinase CK-MB (CK-2) C-Reactive Protein Total Protein Albumin Troponin T HDL Cholesterol Urine WBC (Auto) Urine Creatinine Urine Total Protein Coronavirus (PCR) Crossmatch 06/29/20 06/29/20 06/29/20 04:38 05:38 12:25 WBC RBC Hgb Hct MCHC RDW Lymph % (Auto) [place] % (Auto) Eos % (Auto) Lymph # [place] # Lymph # (Auto) [place] # (Auto) Seg Neutrophils % Seg Neuts % (Manual) Lymphocytes % (Manual) Seg Neutrophils # Seg Neutrophils # Man Lymphocytes # (Manual) Monocytes % (Manual) Eosinophils % (Manual) Monocytes # (Manual) Eosinophils # (Manual) D-Dimer Heparin Anti-Xa Level ABG pH POC ABG pCO2 POC ABG pO2 ABG pO2 ABG HCO3 ABG O2 Saturation ABG Base Excess ABG Hemoglobin ABG Oxyhemoglobin VBG pH Oxyhemoglobin Sodium Potassium Chloride 107.8 H Carbon Dioxide BUN 72 H Creatinine 1.4 H Glucose 127 H POC Glucose 122 H 138 H Lactic Acid Calcium 7.4 L Ferritin AST Alkaline Phosphatase Magnesium Lactate Dehydrogenase Total Creatine Kinase CK-MB (CK-2) C-Reactive Protein Total Protein Albumin Troponin T HDL Cholesterol Urine WBC (Auto) Urine Creatinine Urine Total Protein Coronavirus (PCR) Crossmatch 06/29/20 06/29/20 06/29/20 14:45 14:45 14:45 WBC RBC Hgb Hct MCHC RDW Lymph % (Auto) [place] % (Auto) Eos % (Auto) Lymph # [place] # Lymph # (Auto) [place] # (Auto) Seg Neutrophils % Seg Neuts % (Manual) Lymphocytes % (Manual) Seg Neutrophils # Seg Neutrophils # Man Lymphocytes # (Manual) Monocytes % (Manual) Eosinophils % (Manual) Monocytes # (Manual) Eosinophils # (Manual) D-Dimer 2310.15 H Heparin Anti-Xa Level ABG pH POC ABG pCO2 POC ABG pO2 ABG pO2 ABG HCO3 ABG O2 Saturation ABG Base Excess ABG Hemoglobin ABG Oxyhemoglobin VBG pH Oxyhemoglobin Sodium Potassium Chloride Carbon Dioxide BUN Creatinine Glucose POC Glucose Lactic Acid Calcium Ferritin 223.6 H AST Alkaline Phosphatase Magnesium Lactate Dehydrogenase 367 H Total Creatine Kinase CK-MB (CK-2) C-Reactive Protein 3.60 H Total Protein Albumin Troponin T HDL Cholesterol Urine WBC (Auto) Urine Creatinine Urine Total Protein Coronavirus (PCR) Crossmatch 06/29/20 06/29/20 06/29/20 18:27 23:35 Unknown WBC RBC Hgb Hct MCHC RDW Lymph % (Auto) [place] % (Auto) Eos % (Auto) Lymph # [place] # Lymph # (Auto) [place] # (Auto) Seg Neutrophils % Seg Neuts % (Manual) Lymphocytes % (Manual) Seg Neutrophils # Seg Neutrophils # Man Lymphocytes # (Manual) Monocytes % (Manual) Eosinophils % (Manual) Monocytes # (Manual) Eosinophils # (Manual) D-Dimer Heparin Anti-Xa Level ABG pH POC ABG pCO2 POC ABG pO2 ABG pO2 ABG HCO3 ABG O2 Saturation ABG Base Excess ABG Hemoglobin ABG Oxyhemoglobin VBG pH Oxyhemoglobin Sodium Potassium Chloride Carbon Dioxide BUN Creatinine Glucose POC Glucose 112 H 140 H Lactic Acid Calcium Ferritin AST Alkaline Phosphatase Magnesium Lactate Dehydrogenase Total Creatine Kinase CK-MB (CK-2) C-Reactive Protein Total Protein Albumin Troponin T HDL Cholesterol Urine WBC (Auto) Urine Creatinine Urine Total Protein Coronavirus (PCR) Positive A Crossmatch 06/30/20 06/30/20 06/30/20 04:10 04:10 06:09 WBC RBC 2.44 L Hgb 7.1 L Hct 21.5 L MCHC RDW 16.6 H Lymph % (Auto) 11.0 L [place] % (Auto) 10.8 H Eos % (Auto) Lymph # 0.9 L [place] # 0.9 H Lymph # (Auto) [place] # (Auto) Seg Neutrophils % 73.7 H Seg Neuts % (Manual) Lymphocytes % (Manual) Seg Neutrophils # Seg Neutrophils # Man Lymphocytes # (Manual) Monocytes % (Manual) Eosinophils % (Manual) Monocytes # (Manual) Eosinophils # (Manual) D-Dimer Heparin Anti-Xa Level ABG pH POC ABG pCO2 POC ABG pO2 ABG pO2 ABG HCO3 ABG O2 Saturation ABG Base Excess ABG Hemoglobin ABG Oxyhemoglobin VBG pH Oxyhemoglobin Sodium Potassium Chloride 109.1 H Carbon Dioxide BUN 74 H Creatinine 1.3 H Glucose 191 H POC Glucose 187 H Lactic Acid Calcium 7.8 L Ferritin AST Alkaline Phosphatase Magnesium Lactate Dehydrogenase Total Creatine Kinase CK-MB (CK-2) C-Reactive Protein Total Protein Albumin Troponin T HDL Cholesterol Urine WBC (Auto) Urine Creatinine Urine Total Protein Coronavirus (PCR) Crossmatch 06/30/20 06/30/20 06/30/20 12:04 17:43 23:41 WBC RBC Hgb Hct MCHC RDW Lymph % (Auto) [place] % (Auto) Eos % (Auto) Lymph # [place] # Lymph # (Auto) [place] # (Auto) Seg Neutrophils % Seg Neuts % (Manual) Lymphocytes % (Manual) Seg Neutrophils # Seg Neutrophils # Man Lymphocytes # (Manual) Monocytes % (Manual) Eosinophils % (Manual) Monocytes # (Manual) Eosinophils # (Manual) D-Dimer Heparin Anti-Xa Level ABG pH POC ABG pCO2 POC ABG pO2 ABG pO2 ABG HCO3 ABG O2 Saturation ABG Base Excess ABG Hemoglobin ABG Oxyhemoglobin VBG pH Oxyhemoglobin Sodium Potassium Chloride Carbon Dioxide BUN Creatinine Glucose POC Glucose 112 H 177 H 143 H Lactic Acid Calcium Ferritin AST Alkaline Phosphatase Magnesium Lactate Dehydrogenase Total Creatine Kinase CK-MB (CK-2) C-Reactive Protein Total Protein Albumin Troponin T HDL Cholesterol Urine WBC (Auto) Urine Creatinine Urine Total Protein Coronavirus (PCR) Crossmatch 07/01/20 07/01/20 07/01/20 05:02 05:52 06:01 WBC 12.6 H RBC 2.95 L Hgb 8.2 L Hct 26.0 L MCHC RDW 16.9 H Lymph % (Auto) [place] % (Auto) Eos % (Auto) Lymph # [place] # Lymph # (Auto) [place] # (Auto) Seg Neutrophils % Seg Neuts % (Manual) Lymphocytes % (Manual) Seg Neutrophils # Seg Neutrophils # Man 8.6 H Lymphocytes # (Manual) Monocytes % (Manual) Eosinophils % (Manual) 5.0 H Monocytes # (Manual) Eosinophils # (Manual) 0.6 H D-Dimer Heparin Anti-Xa Level ABG pH POC ABG pCO2 POC ABG pO2 ABG pO2 ABG HCO3 ABG O2 Saturation ABG Base Excess ABG Hemoglobin 8.2 L ABG Oxyhemoglobin VBG pH Oxyhemoglobin Sodium Potassium Chloride Carbon Dioxide BUN Creatinine Glucose POC Glucose 129 H Lactic Acid Calcium Ferritin AST Alkaline Phosphatase Magnesium Lactate Dehydrogenase Total Creatine Kinase CK-MB (CK-2) C-Reactive Protein Total Protein Albumin Troponin T HDL Cholesterol Urine WBC (Auto) Urine Creatinine Urine Total Protein Coronavirus (PCR) Crossmatch 07/01/20 07/01/20 07/01/20 06:01 06:01 06:08 WBC RBC Hgb Hct MCHC RDW Lymph % (Auto) [place] % (Auto) Eos % (Auto) Lymph # [place] # Lymph # (Auto) [place] # (Auto) Seg Neutrophils % Seg Neuts % (Manual) Lymphocytes % (Manual) Seg Neutrophils # Seg Neutrophils # Man Lymphocytes # (Manual) Monocytes % (Manual) Eosinophils % (Manual) Monocytes # (Manual) Eosinophils # (Manual) D-Dimer Heparin Anti-Xa Level ABG pH POC ABG pCO2 POC ABG pO2 ABG pO2 ABG HCO3 ABG O2 Saturation ABG Base Excess ABG Hemoglobin ABG Oxyhemoglobin VBG pH Oxyhemoglobin Sodium 147 H Potassium Chloride 108.0 H Carbon Dioxide BUN 71 H Creatinine 1.3 H Glucose 193 H POC Glucose 192 H Lactic Acid Calcium 8.1 L Ferritin AST Alkaline Phosphatase Magnesium Lactate Dehydrogenase Total Creatine Kinase 300 H CK-MB (CK-2) C-Reactive Protein Total Protein Albumin Troponin T 0.067 H HDL Cholesterol 61 H Urine WBC (Auto) Urine Creatinine Urine Total Protein Coronavirus (PCR) Crossmatch 07/01/20 07/01/20 07/02/20 12:23 17:40 00:18 WBC RBC Hgb Hct MCHC RDW Lymph % (Auto) [place] % (Auto) Eos % (Auto) Lymph # [place] # Lymph # (Auto) [place] # (Auto) Seg Neutrophils % Seg Neuts % (Manual) Lymphocytes % (Manual) Seg Neutrophils # Seg Neutrophils # Man Lymphocytes # (Manual) Monocytes % (Manual) Eosinophils % (Manual) Monocytes # (Manual) Eosinophils # (Manual) D-Dimer Heparin Anti-Xa Level ABG pH POC ABG pCO2 POC ABG pO2 ABG pO2 ABG HCO3 ABG O2 Saturation ABG Base Excess ABG Hemoglobin ABG Oxyhemoglobin VBG pH Oxyhemoglobin Sodium Potassium Chloride Carbon Dioxide BUN Creatinine Glucose POC Glucose 111 H 135 H 145 H Lactic Acid Calcium Ferritin AST Alkaline Phosphatase Magnesium Lactate Dehydrogenase Total Creatine Kinase CK-MB (CK-2) C-Reactive Protein Total Protein Albumin Troponin T HDL Cholesterol Urine WBC (Auto) Urine Creatinine Urine Total Protein Coronavirus (PCR) Crossmatch 07/02/20 07/02/20 07/02/20 04:11 04:23 05:54 WBC RBC Hgb Hct MCHC RDW Lymph % (Auto) [place] % (Auto) Eos % (Auto) Lymph # [place] # Lymph # (Auto) [place] # (Auto) Seg Neutrophils % Seg Neuts % (Manual) Lymphocytes % (Manual) Seg Neutrophils # Seg Neutrophils # Man Lymphocytes # (Manual) Monocytes % (Manual) Eosinophils % (Manual) Monocytes # (Manual) Eosinophils # (Manual) D-Dimer Heparin Anti-Xa Level ABG pH POC ABG pCO2 POC ABG pO2 ABG pO2 ABG HCO3 ABG O2 Saturation ABG Base Excess ABG Hemoglobin 5.4 L ABG Oxyhemoglobin VBG pH Oxyhemoglobin Sodium Potassium Chloride 108.6 H Carbon Dioxide BUN 72 H Creatinine Glucose 112 H POC Glucose 137 H Lactic Acid Calcium 7.8 L Ferritin AST Alkaline Phosphatase Magnesium Lactate Dehydrogenase Total Creatine Kinase CK-MB (CK-2) C-Reactive Protein Total Protein Albumin Troponin T HDL Cholesterol Urine WBC (Auto) Urine Creatinine Urine Total Protein Coronavirus (PCR) Crossmatch 07/02/20 07/02/20 07/02/20 11:38 18:04 23:59 WBC RBC Hgb Hct MCHC RDW Lymph % (Auto) [place] % (Auto) Eos % (Auto) Lymph # [place] # Lymph # (Auto) [place] # (Auto) Seg Neutrophils % Seg Neuts % (Manual) Lymphocytes % (Manual) Seg Neutrophils # Seg Neutrophils # Man Lymphocytes # (Manual) Monocytes % (Manual) Eosinophils % (Manual) Monocytes # (Manual) Eosinophils # (Manual) D-Dimer Heparin Anti-Xa Level ABG pH POC ABG pCO2 POC ABG pO2 ABG pO2 ABG HCO3 ABG O2 Saturation ABG Base Excess ABG Hemoglobin ABG Oxyhemoglobin VBG pH Oxyhemoglobin Sodium Potassium Chloride Carbon Dioxide BUN Creatinine Glucose POC Glucose 128 H 135 H 156 H Lactic Acid Calcium Ferritin AST Alkaline Phosphatase Magnesium Lactate Dehydrogenase Total Creatine Kinase CK-MB (CK-2) C-Reactive Protein Total Protein Albumin Troponin T HDL Cholesterol Urine WBC (Auto) Urine Creatinine Urine Total Protein Coronavirus (PCR) Crossmatch 07/03/20 07/03/20 07/03/20 03:49 06:00 11:31 WBC RBC Hgb Hct MCHC RDW Lymph % (Auto) [place] % (Auto) Eos % (Auto) Lymph # [place] # Lymph # (Auto) [place] # (Auto) Seg Neutrophils % Seg Neuts % (Manual) Lymphocytes % (Manual) Seg Neutrophils # Seg Neutrophils # Man Lymphocytes # (Manual) Monocytes % (Manual) Eosinophils % (Manual) Monocytes # (Manual) Eosinophils # (Manual) D-Dimer Heparin Anti-Xa Level ABG pH POC ABG pCO2 POC ABG pO2 ABG pO2 121.0 H ABG HCO3 ABG O2 Saturation ABG Base Excess ABG Hemoglobin 8.5 L ABG Oxyhemoglobin VBG pH Oxyhemoglobin Sodium Potassium Chloride Carbon Dioxide BUN Creatinine Glucose POC Glucose 135 H 141 H Lactic Acid Calcium Ferritin AST Alkaline Phosphatase Magnesium Lactate Dehydrogenase Total Creatine Kinase CK-MB (CK-2) C-Reactive Protein Total Protein Albumin Troponin T HDL Cholesterol Urine WBC (Auto) Urine Creatinine Urine Total Protein Coronavirus (PCR) Crossmatch 07/03/20 07/03/20 07/04/20 16:07 17:40 05:49 WBC RBC Hgb Hct MCHC RDW Lymph % (Auto) [place] % (Auto) Eos % (Auto) Lymph # [place] # Lymph # (Auto) [place] # (Auto) Seg Neutrophils % Seg Neuts % (Manual) Lymphocytes % (Manual) Seg Neutrophils # Seg Neutrophils # Man Lymphocytes # (Manual) Monocytes % (Manual) Eosinophils % (Manual) Monocytes # (Manual) Eosinophils # (Manual) D-Dimer Heparin Anti-Xa Level ABG pH POC ABG pCO2 POC ABG pO2 ABG pO2 126.9 H ABG HCO3 ABG O2 Saturation ABG Base Excess ABG Hemoglobin 8.1 L ABG Oxyhemoglobin VBG pH Oxyhemoglobin Sodium Potassium Chloride Carbon Dioxide BUN Creatinine Glucose POC Glucose 120 H 128 H Lactic Acid Calcium Ferritin AST Alkaline Phosphatase Magnesium Lactate Dehydrogenase Total Creatine Kinase CK-MB (CK-2) C-Reactive Protein Total Protein Albumin Troponin T HDL Cholesterol Urine WBC (Auto) Urine Creatinine Urine Total Protein Coronavirus (PCR) Crossmatch 07/04/20 07/04/20 07/05/20 11:54 18:00 00:07 WBC RBC Hgb Hct MCHC RDW Lymph % (Auto) [place] % (Auto) Eos % (Auto) Lymph # [place] # Lymph # (Auto) [place] # (Auto) Seg Neutrophils % Seg Neuts % (Manual) Lymphocytes % (Manual) Seg Neutrophils # Seg Neutrophils # Man Lymphocytes # (Manual) Monocytes % (Manual) Eosinophils % (Manual) Monocytes # (Manual) Eosinophils # (Manual) D-Dimer Heparin Anti-Xa Level ABG pH POC ABG pCO2 POC ABG pO2 ABG pO2 ABG HCO3 ABG O2 Saturation ABG Base Excess ABG Hemoglobin ABG Oxyhemoglobin VBG pH Oxyhemoglobin Sodium Potassium Chloride Carbon Dioxide BUN Creatinine Glucose POC Glucose 168 H 133 H 121 H Lactic Acid Calcium Ferritin AST Alkaline Phosphatase Magnesium Lactate Dehydrogenase Total Creatine Kinase CK-MB (CK-2) C-Reactive Protein Total Protein Albumin Troponin T HDL Cholesterol Urine WBC (Auto) Urine Creatinine Urine Total Protein Coronavirus (PCR) Crossmatch 07/05/20 07/05/20 07/05/20 01:12 02:30 12:09 WBC RBC 2.35 L Hgb 6.9 L Hct 21.1 L MCHC RDW 16.8 H Lymph % (Auto) [place] % (Auto) Eos % (Auto) Lymph # [place] # Lymph # (Auto) [place] # (Auto) Seg Neutrophils % Seg Neuts % (Manual) 74.0 H Lymphocytes % (Manual) 12.0 L Seg Neutrophils # Seg Neutrophils # Man 8.0 H Lymphocytes # (Manual) Monocytes % (Manual) 9.0 H Eosinophils % (Manual) Monocytes # (Manual) 1.0 H Eosinophils # (Manual) D-Dimer Heparin Anti-Xa Level ABG pH POC ABG pCO2 POC ABG pO2 ABG pO2 ABG HCO3 ABG O2 Saturation ABG Base Excess ABG Hemoglobin ABG Oxyhemoglobin VBG pH Oxyhemoglobin Sodium Potassium Chloride Carbon Dioxide BUN Creatinine Glucose POC Glucose 132 H Lactic Acid Calcium Ferritin AST Alkaline Phosphatase Magnesium Lactate Dehydrogenase Total Creatine Kinase CK-MB (CK-2) C-Reactive Protein Total Protein Albumin Troponin T HDL Cholesterol Urine WBC (Auto) Urine Creatinine Urine Total Protein Coronavirus (PCR) Crossmatch See Detail 07/05/20 07/05/20 07/05/20 13:05 18:04 23:13 WBC RBC 2.57 L Hgb 7.7 L Hct 23.0 L MCHC RDW 16.9 H Lymph % (Auto) [place] % (Auto) Eos % (Auto) Lymph # [place] # Lymph # (Auto) [place] # (Auto) Seg Neutrophils % Seg Neuts % (Manual) Lymphocytes % (Manual) Seg Neutrophils # Seg Neutrophils # Man Lymphocytes # (Manual) Monocytes % (Manual) Eosinophils % (Manual) Monocytes # (Manual) Eosinophils # (Manual) D-Dimer Heparin Anti-Xa Level ABG pH 7.32 L POC ABG pCO2 POC ABG pO2 ABG pO2 78.3 L ABG HCO3 ABG O2 Saturation ABG Base Excess -2.6 L ABG Hemoglobin 7.3 L ABG Oxyhemoglobin VBG pH Oxyhemoglobin Sodium Potassium Chloride Carbon Dioxide BUN Creatinine Glucose POC Glucose 160 H Lactic Acid Calcium Ferritin AST Alkaline Phosphatase Magnesium Lactate Dehydrogenase Total Creatine Kinase CK-MB (CK-2) C-Reactive Protein Total Protein Albumin Troponin T HDL Cholesterol Urine WBC (Auto) Urine Creatinine Urine Total Protein Coronavirus (PCR) Crossmatch 07/05/20 07/05/20 07/06/20 23:13 23:43 13:20 WBC RBC Hgb Hct MCHC RDW Lymph % (Auto) [place] % (Auto) Eos % (Auto) Lymph # [place] # Lymph # (Auto) [place] # (Auto) Seg Neutrophils % Seg Neuts % (Manual) Lymphocytes % (Manual) Seg Neutrophils # Seg Neutrophils # Man Lymphocytes # (Manual) Monocytes % (Manual) Eosinophils % (Manual) Monocytes # (Manual) Eosinophils # (Manual) D-Dimer Heparin Anti-Xa Level ABG pH POC ABG pCO2 POC ABG pO2 ABG pO2 ABG HCO3 ABG O2 Saturation ABG Base Excess ABG Hemoglobin ABG Oxyhemoglobin VBG pH Oxyhemoglobin Sodium Potassium Chloride Carbon Dioxide 20 L BUN 80 H Creatinine 2.4 H D Glucose 124 H POC Glucose 121 H Lactic Acid Calcium 7.6 L Ferritin AST Alkaline Phosphatase Magnesium Lactate Dehydrogenase Total Creatine Kinase CK-MB (CK-2) C-Reactive Protein Total Protein Albumin Troponin T HDL Cholesterol Urine WBC (Auto) Urine Creatinine 33.3 H Urine Total Protein Coronavirus (PCR) Crossmatch 07/06/20 07/06/20 07/07/20 14:48 17:28 00:12 WBC RBC Hgb Hct MCHC RDW Lymph % (Auto) [place] % (Auto) Eos % (Auto) Lymph # [place] # Lymph # (Auto) [place] # (Auto) Seg Neutrophils % Seg Neuts % (Manual) Lymphocytes % (Manual) Seg Neutrophils # Seg Neutrophils # Man Lymphocytes # (Manual) Monocytes % (Manual) Eosinophils % (Manual) Monocytes # (Manual) Eosinophils # (Manual) D-Dimer Heparin Anti-Xa Level ABG pH POC ABG pCO2 POC ABG pO2 ABG pO2 ABG HCO3 ABG O2 Saturation ABG Base Excess ABG Hemoglobin ABG Oxyhemoglobin VBG pH Oxyhemoglobin Sodium 136 L Potassium 5.5 H Chloride Carbon Dioxide 19 L BUN 82 H Creatinine 2.5 H Glucose 113 H POC Glucose 133 H 154 H Lactic Acid Calcium 7.7 L Ferritin AST Alkaline Phosphatase Magnesium Lactate Dehydrogenase Total Creatine Kinase CK-MB (CK-2) C-Reactive Protein Total Protein Albumin Troponin T HDL Cholesterol Urine WBC (Auto) Urine Creatinine Urine Total Protein Coronavirus (PCR) Crossmatch 07/07/20 07/07/20 07/07/20 04:15 04:15 05:31 WBC RBC 2.28 L Hgb 6.8 L Hct 20.7 L MCHC RDW 16.8 H Lymph % (Auto) [place] % (Auto) Eos % (Auto) Lymph # [place] # Lymph # (Auto) [place] # (Auto) Seg Neutrophils % Seg Neuts % (Manual) Lymphocytes % (Manual) 13.0 L Seg Neutrophils # Seg Neutrophils # Man Lymphocytes # (Manual) 1.0 L Monocytes % (Manual) 11.0 H Eosinophils % (Manual) Monocytes # (Manual) 0.9 H Eosinophils # (Manual) D-Dimer Heparin Anti-Xa Level ABG pH POC ABG pCO2 POC ABG pO2 ABG pO2 ABG HCO3 ABG O2 Saturation ABG Base Excess ABG Hemoglobin ABG Oxyhemoglobin VBG pH Oxyhemoglobin Sodium Potassium Chloride Carbon Dioxide BUN Creatinine Glucose POC Glucose 135 H Lactic Acid Calcium Ferritin AST Alkaline Phosphatase Magnesium 2.50 H Lactate Dehydrogenase Total Creatine Kinase CK-MB (CK-2) C-Reactive Protein Total Protein Albumin Troponin T HDL Cholesterol Urine WBC (Auto) Urine Creatinine Urine Total Protein Coronavirus (PCR) Crossmatch 07/07/20 07/07/20 07/07/20 12:31 13:22 17:55 WBC RBC Hgb Hct MCHC RDW Lymph % (Auto) [place] % (Auto) Eos % (Auto) Lymph # [place] # Lymph # (Auto) [place] # (Auto) Seg Neutrophils % Seg Neuts % (Manual) Lymphocytes % (Manual) Seg Neutrophils # Seg Neutrophils # Man Lymphocytes # (Manual) Monocytes % (Manual) Eosinophils % (Manual) Monocytes # (Manual) Eosinophils # (Manual) D-Dimer Heparin Anti-Xa Level ABG pH POC ABG pCO2 POC ABG pO2 ABG pO2 ABG HCO3 ABG O2 Saturation ABG Base Excess ABG Hemoglobin ABG Oxyhemoglobin VBG pH Oxyhemoglobin Sodium Potassium 5.6 H Chloride Carbon Dioxide BUN 86 H Creatinine 2.9 H Glucose 127 H POC Glucose 131 H 136 H Lactic Acid Calcium 8.1 L Ferritin AST Alkaline Phosphatase Magnesium Lactate Dehydrogenase Total Creatine Kinase CK-MB (CK-2) C-Reactive Protein Total Protein Albumin Troponin T HDL Cholesterol Urine WBC (Auto) Urine Creatinine Urine Total Protein Coronavirus (PCR) Crossmatch 07/07/20 07/08/20 07/08/20 23:33 04:14 04:14 WBC RBC 3.28 L Hgb 9.7 L Hct 28.9 L D MCHC RDW 16.4 H Lymph % (Auto) 10.3 L [place] % (Auto) 10.0 H Eos % (Auto) Lymph # [place] # Lymph # (Auto) 1.1 L [place] # (Auto) 1.1 H Seg Neutrophils % 77.2 H Seg Neuts % (Manual) Lymphocytes % (Manual) Seg Neutrophils # 8.2 H Seg Neutrophils # Man Lymphocytes # (Manual) Monocytes % (Manual) Eosinophils % (Manual) Monocytes # (Manual) Eosinophils # (Manual) D-Dimer Heparin Anti-Xa Level ABG pH POC ABG pCO2 POC ABG pO2 ABG pO2 ABG HCO3 ABG O2 Saturation ABG Base Excess ABG Hemoglobin ABG Oxyhemoglobin VBG pH Oxyhemoglobin Sodium 136 L Potassium Chloride Carbon Dioxide BUN 84 H Creatinine 2.8 H Glucose 109 H POC Glucose 159 H Lactic Acid Calcium 8.1 L Ferritin AST Alkaline Phosphatase Magnesium 2.50 H Lactate Dehydrogenase Total Creatine Kinase CK-MB (CK-2) C-Reactive Protein Total Protein Albumin Troponin T HDL Cholesterol Urine WBC (Auto) Urine Creatinine Urine Total Protein Coronavirus (PCR) Crossmatch 07/08/20 07/08/20 07/08/20 12:10 18:10 23:50 WBC RBC Hgb Hct MCHC RDW Lymph % (Auto) [place] % (Auto) Eos % (Auto) Lymph # [place] # Lymph # (Auto) [place] # (Auto) Seg Neutrophils % Seg Neuts % (Manual) Lymphocytes % (Manual) Seg Neutrophils # Seg Neutrophils # Man Lymphocytes # (Manual) Monocytes % (Manual) Eosinophils % (Manual) Monocytes # (Manual) Eosinophils # (Manual) D-Dimer Heparin Anti-Xa Level ABG pH POC ABG pCO2 POC ABG pO2 ABG pO2 ABG HCO3 ABG O2 Saturation ABG Base Excess ABG Hemoglobin ABG Oxyhemoglobin VBG pH Oxyhemoglobin Sodium Potassium Chloride Carbon Dioxide BUN Creatinine Glucose POC Glucose 108 H 125 H 141 H Lactic Acid Calcium Ferritin AST Alkaline Phosphatase Magnesium Lactate Dehydrogenase Total Creatine Kinase CK-MB (CK-2) C-Reactive Protein Total Protein Albumin Troponin T HDL Cholesterol Urine WBC (Auto) Urine Creatinine Urine Total Protein Coronavirus (PCR) Crossmatch 07/09/20 07/09/20 07/09/20 05:39 11:57 17:56 WBC RBC Hgb Hct MCHC RDW Lymph % (Auto) [place] % (Auto) Eos % (Auto) Lymph # [place] # Lymph # (Auto) [place] # (Auto) Seg Neutrophils % Seg Neuts % (Manual) Lymphocytes % (Manual) Seg Neutrophils # Seg Neutrophils # Man Lymphocytes # (Manual) Monocytes % (Manual) Eosinophils % (Manual) Monocytes # (Manual) Eosinophils # (Manual) D-Dimer Heparin Anti-Xa Level ABG pH POC ABG pCO2 POC ABG pO2 ABG pO2 ABG HCO3 ABG O2 Saturation ABG Base Excess ABG Hemoglobin ABG Oxyhemoglobin VBG pH Oxyhemoglobin Sodium Potassium Chloride Carbon Dioxide BUN Creatinine Glucose POC Glucose 121 H 123 H 119 H Lactic Acid Calcium Ferritin AST Alkaline Phosphatase Magnesium Lactate Dehydrogenase Total Creatine Kinase CK-MB (CK-2) C-Reactive Protein Total Protein Albumin Troponin T HDL Cholesterol Urine WBC (Auto) Urine Creatinine Urine Total Protein Coronavirus (PCR) Crossmatch 07/10/20 07/10/20 07/10/20 00:29 05:50 10:41 WBC RBC 3.11 L Hgb 9.2 L Hct 27.6 L MCHC RDW 16.6 H Lymph % (Auto) [place] % (Auto) Eos % (Auto) Lymph # [place] # Lymph # (Auto) [place] # (Auto) Seg Neutrophils % Seg Neuts % (Manual) 78.0 H Lymphocytes % (Manual) 11.0 L Seg Neutrophils # Seg Neutrophils # Man Lymphocytes # (Manual) 1.0 L Monocytes % (Manual) Eosinophils % (Manual) Monocytes # (Manual) Eosinophils # (Manual) D-Dimer Heparin Anti-Xa Level ABG pH POC ABG pCO2 POC ABG pO2 ABG pO2 ABG HCO3 ABG O2 Saturation ABG Base Excess ABG Hemoglobin ABG Oxyhemoglobin VBG pH Oxyhemoglobin Sodium Potassium Chloride Carbon Dioxide BUN Creatinine Glucose POC Glucose 122 H 124 H Lactic Acid Calcium Ferritin AST Alkaline Phosphatase Magnesium Lactate Dehydrogenase Total Creatine Kinase CK-MB (CK-2) C-Reactive Protein Total Protein Albumin Troponin T HDL Cholesterol Urine WBC (Auto) Urine Creatinine Urine Total Protein Coronavirus (PCR) Crossmatch 07/10/20 07/10/20 07/10/20 10:41 12:25 18:10 WBC RBC Hgb Hct MCHC RDW Lymph % (Auto) [place] % (Auto) Eos % (Auto) Lymph # [place] # Lymph # (Auto) [place] # (Auto) Seg Neutrophils % Seg Neuts % (Manual) Lymphocytes % (Manual) Seg Neutrophils # Seg Neutrophils # Man Lymphocytes # (Manual) Monocytes % (Manual) Eosinophils % (Manual) Monocytes # (Manual) Eosinophils # (Manual) D-Dimer Heparin Anti-Xa Level ABG pH POC ABG pCO2 POC ABG pO2 ABG pO2 ABG HCO3 ABG O2 Saturation ABG Base Excess ABG Hemoglobin ABG Oxyhemoglobin VBG pH Oxyhemoglobin Sodium Potassium Chloride Carbon Dioxide BUN 85 H Creatinine 2.5 H Glucose 133 H POC Glucose 131 H 134 H Lactic Acid Calcium Ferritin AST Alkaline Phosphatase 131 H Magnesium Lactate Dehydrogenase Total Creatine Kinase CK-MB (CK-2) C-Reactive Protein Total Protein 5.2 L Albumin 1.6 L Troponin T HDL Cholesterol Urine WBC (Auto) Urine Creatinine Urine Total Protein Coronavirus (PCR) Crossmatch 07/11/20 07/11/20 07/11/20 00:28 05:57 12:14 WBC RBC Hgb Hct MCHC RDW Lymph % (Auto) [place] % (Auto) Eos % (Auto) Lymph # [place] # Lymph # (Auto) [place] # (Auto) Seg Neutrophils % Seg Neuts % (Manual) Lymphocytes % (Manual) Seg Neutrophils # Seg Neutrophils # Man Lymphocytes # (Manual) Monocytes % (Manual) Eosinophils % (Manual) Monocytes # (Manual) Eosinophils # (Manual) D-Dimer Heparin Anti-Xa Level ABG pH POC ABG pCO2 POC ABG pO2 ABG pO2 ABG HCO3 ABG O2 Saturation ABG Base Excess ABG Hemoglobin ABG Oxyhemoglobin VBG pH Oxyhemoglobin Sodium Potassium Chloride Carbon Dioxide BUN Creatinine Glucose POC Glucose 140 H 148 H 147 H Lactic Acid Calcium Ferritin AST Alkaline Phosphatase Magnesium Lactate Dehydrogenase Total Creatine Kinase CK-MB (CK-2) C-Reactive Protein Total Protein Albumin Troponin T HDL Cholesterol Urine WBC (Auto) Urine Creatinine Urine Total Protein Coronavirus (PCR) Crossmatch 07/11/20 07/11/20 07/12/20 17:28 23:49 05:14 WBC RBC 2.78 L Hgb 8.5 L Hct 25.3 L MCHC RDW 16.7 H Lymph % (Auto) [place] % (Auto) Eos % (Auto) Lymph # [place] # Lymph # (Auto) [place] # (Auto) Seg Neutrophils % Seg Neuts % (Manual) 81.0 H Lymphocytes % (Manual) 6.0 L Seg Neutrophils # Seg Neutrophils # Man Lymphocytes # (Manual) 0.6 L Monocytes % (Manual) 8.0 H Eosinophils % (Manual) Monocytes # (Manual) Eosinophils # (Manual) D-Dimer Heparin Anti-Xa Level ABG pH POC ABG pCO2 POC ABG pO2 ABG pO2 ABG HCO3 ABG O2 Saturation ABG Base Excess ABG Hemoglobin ABG Oxyhemoglobin VBG pH Oxyhemoglobin Sodium Potassium Chloride Carbon Dioxide BUN Creatinine Glucose POC Glucose 175 H 114 H Lactic Acid Calcium Ferritin AST Alkaline Phosphatase Magnesium Lactate Dehydrogenase Total Creatine Kinase CK-MB (CK-2) C-Reactive Protein Total Protein Albumin Troponin T HDL Cholesterol Urine WBC (Auto) Urine Creatinine Urine Total Protein Coronavirus (PCR) Crossmatch 07/12/20 07/12/20 07/12/20 05:14 05:44 11:32 WBC RBC Hgb Hct MCHC RDW Lymph % (Auto) [place] % (Auto) Eos % (Auto) Lymph # [place] # Lymph # (Auto) [place] # (Auto) Seg Neutrophils % Seg Neuts % (Manual) Lymphocytes % (Manual) Seg Neutrophils # Seg Neutrophils # Man Lymphocytes # (Manual) Monocytes % (Manual) Eosinophils % (Manual) Monocytes # (Manual) Eosinophils # (Manual) D-Dimer Heparin Anti-Xa Level ABG pH POC ABG pCO2 POC ABG pO2 ABG pO2 ABG HCO3 ABG O2 Saturation ABG Base Excess ABG Hemoglobin ABG Oxyhemoglobin VBG pH Oxyhemoglobin Sodium Potassium Chloride Carbon Dioxide BUN 79 H Creatinine 2.2 H Glucose 131 H POC Glucose 116 H 132 H Lactic Acid Calcium Ferritin AST Alkaline Phosphatase Magnesium Lactate Dehydrogenase Total Creatine Kinase CK-MB (CK-2) C-Reactive Protein Total Protein Albumin Troponin T HDL Cholesterol Urine WBC (Auto) Urine Creatinine Urine Total Protein Coronavirus (PCR) Crossmatch 07/12/20 07/13/20 07/13/20 17:53 00:18 04:53 WBC RBC 2.86 L Hgb 8.4 L Hct 25.7 L MCHC RDW 16.8 H Lymph % (Auto) [place] % (Auto) Eos % (Auto) Lymph # [place] # Lymph # (Auto) [place] # (Auto) Seg Neutrophils % Seg Neuts % (Manual) 84.0 H Lymphocytes % (Manual) 7.0 L Seg Neutrophils # Seg Neutrophils # Man Lymphocytes # (Manual) 0.6 L Monocytes % (Manual) Eosinophils % (Manual) Monocytes # (Manual) Eosinophils # (Manual) D-Dimer Heparin Anti-Xa Level ABG pH POC ABG pCO2 POC ABG pO2 ABG pO2 ABG HCO3 ABG O2 Saturation ABG Base Excess ABG Hemoglobin ABG Oxyhemoglobin VBG pH Oxyhemoglobin Sodium Potassium Chloride Carbon Dioxide BUN Creatinine Glucose POC Glucose 155 H 162 H Lactic Acid Calcium Ferritin AST Alkaline Phosphatase Magnesium Lactate Dehydrogenase Total Creatine Kinase CK-MB (CK-2) C-Reactive Protein Total Protein Albumin Troponin T HDL Cholesterol Urine WBC (Auto) Urine Creatinine Urine Total Protein Coronavirus (PCR) Crossmatch 07/13/20 07/13/20 07/13/20 04:53 06:14 12:50 WBC RBC Hgb Hct MCHC RDW Lymph % (Auto) [place] % (Auto) Eos % (Auto) Lymph # [place] # Lymph # (Auto) [place] # (Auto) Seg Neutrophils % Seg Neuts % (Manual) Lymphocytes % (Manual) Seg Neutrophils # Seg Neutrophils # Man Lymphocytes # (Manual) Monocytes % (Manual) Eosinophils % (Manual) Monocytes # (Manual) Eosinophils # (Manual) D-Dimer Heparin Anti-Xa Level ABG pH POC ABG pCO2 POC ABG pO2 ABG pO2 ABG HCO3 ABG O2 Saturation ABG Base Excess ABG Hemoglobin ABG Oxyhemoglobin VBG pH Oxyhemoglobin Sodium 136 L Potassium Chloride Carbon Dioxide BUN 78 H Creatinine 2.0 H Glucose 130 H POC Glucose 141 H 146 H Lactic Acid Calcium Ferritin AST Alkaline Phosphatase Magnesium Lactate Dehydrogenase Total Creatine Kinase CK-MB (CK-2) C-Reactive Protein Total Protein Albumin Troponin T HDL Cholesterol Urine WBC (Auto) Urine Creatinine Urine Total Protein Coronavirus (PCR) Crossmatch 07/13/20 07/14/20 07/14/20 18:27 00:22 05:43 WBC RBC Hgb Hct MCHC RDW Lymph % (Auto) [place] % (Auto) Eos % (Auto) Lymph # [place] # Lymph # (Auto) [place] # (Auto) Seg Neutrophils % Seg Neuts % (Manual) Lymphocytes % (Manual) Seg Neutrophils # Seg Neutrophils # Man Lymphocytes # (Manual) Monocytes % (Manual) Eosinophils % (Manual) Monocytes # (Manual) Eosinophils # (Manual) D-Dimer Heparin Anti-Xa Level ABG pH POC ABG pCO2 POC ABG pO2 ABG pO2 ABG HCO3 ABG O2 Saturation ABG Base Excess ABG Hemoglobin ABG Oxyhemoglobin VBG pH Oxyhemoglobin Sodium Potassium Chloride Carbon Dioxide BUN Creatinine Glucose POC Glucose 149 H 157 H 169 H Lactic Acid Calcium Ferritin AST Alkaline Phosphatase Magnesium Lactate Dehydrogenase Total Creatine Kinase CK-MB (CK-2) C-Reactive Protein Total Protein Albumin Troponin T HDL Cholesterol Urine WBC (Auto) Urine Creatinine Urine Total Protein Coronavirus (PCR) Crossmatch 07/14/20 07/14/20 07/14/20 08:04 12:12 17:23 WBC RBC Hgb Hct MCHC RDW Lymph % (Auto) [place] % (Auto) Eos % (Auto) Lymph # [place] # Lymph # (Auto) [place] # (Auto) Seg Neutrophils % Seg Neuts % (Manual) Lymphocytes % (Manual) Seg Neutrophils # Seg Neutrophils # Man Lymphocytes # (Manual) Monocytes % (Manual) Eosinophils % (Manual) Monocytes # (Manual) Eosinophils # (Manual) D-Dimer Heparin Anti-Xa Level ABG pH POC ABG pCO2 POC ABG pO2 ABG pO2 ABG HCO3 ABG O2 Saturation ABG Base Excess ABG Hemoglobin ABG Oxyhemoglobin VBG pH Oxyhemoglobin Sodium Potassium Chloride Carbon Dioxide BUN Creatinine Glucose POC Glucose 185 H 138 H Lactic Acid Calcium Ferritin AST Alkaline Phosphatase Magnesium Lactate Dehydrogenase Total Creatine Kinase CK-MB (CK-2) C-Reactive Protein Total Protein Albumin Troponin T HDL Cholesterol Urine WBC (Auto) Urine Creatinine Urine Total Protein Coronavirus (PCR) Positive A Crossmatch 07/15/20 07/15/20 07/15/20 00:04 06:06 12:00 WBC RBC Hgb Hct MCHC RDW Lymph % (Auto) [place] % (Auto) Eos % (Auto) Lymph # [place] # Lymph # (Auto) [place] # (Auto) Seg Neutrophils % Seg Neuts % (Manual) Lymphocytes % (Manual) Seg Neutrophils # Seg Neutrophils # Man Lymphocytes # (Manual) Monocytes % (Manual) Eosinophils % (Manual) Monocytes # (Manual) Eosinophils # (Manual) D-Dimer Heparin Anti-Xa Level ABG pH POC ABG pCO2 POC ABG pO2 ABG pO2 ABG HCO3 ABG O2 Saturation ABG Base Excess ABG Hemoglobin ABG Oxyhemoglobin VBG pH Oxyhemoglobin Sodium Potassium Chloride Carbon Dioxide BUN Creatinine Glucose POC Glucose 121 H 140 H 137 H Lactic Acid Calcium Ferritin AST Alkaline Phosphatase Magnesium Lactate Dehydrogenase Total Creatine Kinase CK-MB (CK-2) C-Reactive Protein Total Protein Albumin Troponin T HDL Cholesterol Urine WBC (Auto) Urine Creatinine Urine Total Protein Coronavirus (PCR) Crossmatch 07/15/20 07/15/20 07/16/20 17:53 23:53 05:26 WBC RBC Hgb Hct MCHC RDW Lymph % (Auto) [place] % (Auto) Eos % (Auto) Lymph # [place] # Lymph # (Auto) [place] # (Auto) Seg Neutrophils % Seg Neuts % (Manual) Lymphocytes % (Manual) Seg Neutrophils # Seg Neutrophils # Man Lymphocytes # (Manual) Monocytes % (Manual) Eosinophils % (Manual) Monocytes # (Manual) Eosinophils # (Manual) D-Dimer Heparin Anti-Xa Level ABG pH POC ABG pCO2 POC ABG pO2 ABG pO2 ABG HCO3 ABG O2 Saturation ABG Base Excess ABG Hemoglobin ABG Oxyhemoglobin VBG pH Oxyhemoglobin Sodium Potassium Chloride Carbon Dioxide BUN Creatinine Glucose POC Glucose 161 H 156 H 152 H Lactic Acid Calcium Ferritin AST Alkaline Phosphatase Magnesium Lactate Dehydrogenase Total Creatine Kinase CK-MB (CK-2) C-Reactive Protein Total Protein Albumin Troponin T HDL Cholesterol Urine WBC (Auto) Urine Creatinine Urine Total Protein Coronavirus (PCR) Crossmatch 07/16/20 07/17/20 17:44 00:07 WBC RBC Hgb Hct MCHC RDW Lymph % (Auto) [place] % (Auto) Eos % (Auto) Lymph # [place] # Lymph # (Auto) [place] # (Auto) Seg Neutrophils % Seg Neuts % (Manual) Lymphocytes % (Manual) Seg Neutrophils # Seg Neutrophils # Man Lymphocytes # (Manual) Monocytes % (Manual) Eosinophils % (Manual) Monocytes # (Manual) Eosinophils # (Manual) D-Dimer Heparin Anti-Xa Level ABG pH POC ABG pCO2 POC ABG pO2 ABG pO2 ABG HCO3 ABG O2 Saturation ABG Base Excess ABG Hemoglobin ABG Oxyhemoglobin VBG pH Oxyhemoglobin Sodium Potassium Chloride Carbon Dioxide BUN Creatinine Glucose POC Glucose 126 H 189 H Lactic Acid Calcium Ferritin AST Alkaline Phosphatase Magnesium Lactate Dehydrogenase Total Creatine Kinase CK-MB (CK-2) C-Reactive Protein Total Protein Albumin Troponin T HDL Cholesterol Urine WBC (Auto) Urine Creatinine Urine Total Protein Coronavirus (PCR) Crossmatch Chest x-ray: pending Allied health notes reviewed: nursing
--- NOTE | 2020-07-17 16:03 | Progress Note ---
Assessment and Plan 64 yo female with htn, dm, chf, pulm htn, presented to the ED in May w/ shortness of breath that led to cardiac arrest en route to the hospital on 05/28/2020. Hospital course is noteful for acute respiratory failure, covid infection, multifocal pneumonia, morbid obesity, acute toxic/metabolic encephalopathy, acute renal failure, bilateral pulmonary edema/effusions, and noted continued encephalopathy. The patient suffered a second cardiopulmonary arrest on 06/26/2020. She underwent two NCHCT on 05/28/2020 and 06/02/2020 which were both unremarkable for an acute process. Currently, the patient just tested positive for COVID again on 07/14/2020 and is in continued isolation. 1. Hypoxic Encephalopathy - pt's body habitus prevents MRI Brain at this facility's scanner; recommend transfer to a facility w/ MRI scanner that can possibly accomodate pt's body habitus. 2. Seizure - recommend EEG (extended; 1-hour EEG) for possible ictal activity but currently cancelled secondary to EEGs not being available for COVID-19 patients at this facility; recommend transfer to a facility that provides EEG studies for patient's w/ COVID-19. 3. Metabolic Encephalopathy - in the setting of underlying infection and metabolic derangements. 4. Cardiac Arrest - 2 events noted which raises concern regarding the patient's cardiac status/prognosis. 5. COVID-19 - in itself, may trigger seizures; treatment per primary / pulmonology teams. 6. Since a MRI Brain w/o contast (s/p 2 cardiac arrests) or a routine EEG (poor prognostic activity such as burst suppression, gpeds, ictal activity, etc) cannot be obtained at this facility to aid in neurologic prognostication, recommend transfer to a facility that provides one or both studies (MRI/EEG) to aid in prognostication. Spoke to discharge door operator, who will communicate to the primary hospitalist regarding Neurology's recommendation. Abdirizak Suero MD Neurology Subjective Date of service: 07/17/20 Principal diagnosis: Ac hypoxemic resp failure; COVID-19; pneumonia; CHF; Pulm HTN; OHS; DM II Interval history: Requested a MRI Brain and EEG. Noted that the patient is not able to fit the MRI scanner secondary to body habitus. Spoke to discharge door operator and patient's primary RN at bedside and noted that no EEG has been done. In further delving into the matter, the discharge door operator discovered that the waste minimization technician had cancelled the EEG likely because this hospital does not provide EEG coverage for patient's w/ COVID-19. Objective - Vital Sign Vital Signs - 12hr 07/17/20 07/17/20 07/17/20 04:00 04:13 04:30 Temperature Pulse Rate 79 80 78 Pulse Rate [ 70 From Monitor] Respiratory 18 15 Rate Blood Pressure 152/56 152/56 148/55 O2 Sat by Pulse 95 97 98 Oximetry 07/17/20 07/17/20 07/17/20 05:00 05:30 06:00 Temperature Pulse Rate 79 79 79 Pulse Rate [ From Monitor] Respiratory 16 17 18 Rate Blood Pressure 147/57 140/59 144/53 O2 Sat by Pulse 98 98 98 Oximetry 07/17/20 07/17/20 07/17/20 06:30 07:00 07:30 Temperature Pulse Rate 79 79 80 Pulse Rate [ From Monitor] Respiratory 17 18 20 Rate Blood Pressure 147/54 147/54 148/57 O2 Sat by Pulse 98 98 98 Oximetry 07/17/20 07/17/20 07/17/20 08:00 08:20 08:30 Temperature 99.2 F Pulse Rate 85 84 81 Pulse Rate [ 82 From Monitor] Respiratory 18 21 Rate Blood Pressure 150/59 152/57 152/57 O2 Sat by Pulse 95 97 97 Oximetry 07/17/20 07/17/20 07/17/20 09:00 09:02 09:03 Temperature Pulse Rate 84 83 84 Pulse Rate [ From Monitor] Respiratory 28 H Rate Blood Pressure 145/59 149/59 149/59 O2 Sat by Pulse 96 Oximetry 07/17/20 07/17/20 07/17/20 09:22 09:30 10:00 Temperature Pulse Rate 84 84 84 Pulse Rate [ From Monitor] Respiratory 26 H 30 H Rate Blood Pressure 145/59 137/56 130/53 O2 Sat by Pulse 96 95 Oximetry 07/17/20 07/17/20 07/17/20 10:30 11:00 11:31 Temperature Pulse Rate 85 84 83 Pulse Rate [ From Monitor] Respiratory 24 29 H 27 H Rate Blood Pressure 144/50 154/43 123/48 O2 Sat by Pulse 83 L 95 96 Oximetry 07/17/20 07/17/20 07/17/20 11:57 12:00 12:30 Temperature 99.5 F Pulse Rate 84 84 82 Pulse Rate [ 84 From Monitor] Respiratory 29 H 30 H 29 H Rate Blood Pressure 127/45 127/45 129/48 O2 Sat by Pulse 95 95 95 Oximetry 07/17/20 07/17/20 07/17/20 13:00 13:30 14:00 Temperature Pulse Rate 82 82 85 Pulse Rate [ From Monitor] Respiratory 27 H 27 H 28 H Rate Blood Pressure 133/50 130/52 142/54 O2 Sat by Pulse 96 95 95 Oximetry - Laboratory Findings CBC and BMP: 07/13/20 04:53 07/13/20 04:53 Abnormal Lab Findings: Abnormal Labs 05/28/20 05/28/20 05/28/20 13:29 13:47 13:47 WBC RBC Hgb Hct MCHC RDW 15.3 H Lymph % (Auto) [place] % (Auto) Eos % (Auto) Lymph # [place] # Lymph # (Auto) [place] # (Auto) Seg Neutrophils % Seg Neuts % (Manual) Lymphocytes % (Manual) Seg Neutrophils # Seg Neutrophils # Man Lymphocytes # (Manual) Monocytes % (Manual) Eosinophils % (Manual) Monocytes # (Manual) Eosinophils # (Manual) D-Dimer Heparin Anti-Xa Level ABG pH POC ABG pCO2 POC ABG pO2 ABG pO2 ABG HCO3 ABG O2 Saturation ABG Base Excess ABG Hemoglobin ABG Oxyhemoglobin VBG pH Oxyhemoglobin Sodium Potassium 6.6 H* Chloride 109.2 H Carbon Dioxide 17 L BUN 29 H Creatinine 1.3 H Glucose 265 H POC Glucose 248 H Lactic Acid Calcium 8.1 L Ferritin AST 63 H Alkaline Phosphatase Magnesium Lactate Dehydrogenase Total Creatine Kinase 301 H CK-MB (CK-2) 4.3 H C-Reactive Protein Total Protein 5.4 L Albumin 2.6 L Troponin T HDL Cholesterol Urine WBC (Auto) Urine Creatinine Urine Total Protein Coronavirus (PCR) Crossmatch 05/28/20 05/28/20 05/28/20 13:47 13:47 14:46 WBC RBC Hgb Hct MCHC RDW Lymph % (Auto) [place] % (Auto) Eos % (Auto) Lymph # [place] # Lymph # (Auto) [place] # (Auto) Seg Neutrophils % Seg Neuts % (Manual) Lymphocytes % (Manual) Seg Neutrophils # Seg Neutrophils # Man Lymphocytes # (Manual) Monocytes % (Manual) Eosinophils % (Manual) Monocytes # (Manual) Eosinophils # (Manual) D-Dimer Heparin Anti-Xa Level ABG pH POC ABG pCO2 POC ABG pO2 ABG pO2 ABG HCO3 ABG O2 Saturation ABG Base Excess ABG Hemoglobin ABG Oxyhemoglobin VBG pH 7.152 L* Oxyhemoglobin Sodium Potassium 7.2 H* Chloride Carbon Dioxide BUN Creatinine Glucose POC Glucose Lactic Acid 3.40 H* Calcium Ferritin AST Alkaline Phosphatase Magnesium Lactate Dehydrogenase Total Creatine Kinase CK-MB (CK-2) C-Reactive Protein Total Protein Albumin Troponin T HDL Cholesterol Urine WBC (Auto) Urine Creatinine Urine Total Protein Coronavirus (PCR) Crossmatch 05/28/20 05/28/20 05/28/20 15:33 15:33 15:51 WBC RBC Hgb Hct MCHC RDW Lymph % (Auto) [place] % (Auto) Eos % (Auto) Lymph # [place] # Lymph # (Auto) [place] # (Auto) Seg Neutrophils % Seg Neuts % (Manual) Lymphocytes % (Manual) Seg Neutrophils # Seg Neutrophils # Man Lymphocytes # (Manual) Monocytes % (Manual) Eosinophils % (Manual) Monocytes # (Manual) Eosinophils # (Manual) D-Dimer 8780.43 H Heparin Anti-Xa Level ABG pH 7.284 L POC ABG pCO2 POC ABG pO2 ABG pO2 273.0 H ABG HCO3 ABG O2 Saturation 99.4 H ABG Base Excess -6.1 L ABG Hemoglobin 17.2 H ABG Oxyhemoglobin VBG pH Oxyhemoglobin Sodium Potassium Chloride Carbon Dioxide BUN Creatinine Glucose 152 H POC Glucose Lactic Acid Calcium Ferritin AST Alkaline Phosphatase Magnesium Lactate Dehydrogenase 365 H Total Creatine Kinase CK-MB (CK-2) C-Reactive Protein Total Protein Albumin Troponin T HDL Cholesterol Urine WBC (Auto) Urine Creatinine Urine Total Protein Coronavirus (PCR) Crossmatch 05/28/20 05/28/20 05/28/20 16:30 20:41 23:20 WBC RBC Hgb Hct MCHC RDW Lymph % (Auto) [place] % (Auto) Eos % (Auto) Lymph # [place] # Lymph # (Auto) [place] # (Auto) Seg Neutrophils % Seg Neuts % (Manual) Lymphocytes % (Manual) Seg Neutrophils # Seg Neutrophils # Man Lymphocytes # (Manual) Monocytes % (Manual) Eosinophils % (Manual) Monocytes # (Manual) Eosinophils # (Manual) D-Dimer Heparin Anti-Xa Level ABG pH POC ABG pCO2 POC ABG pO2 ABG pO2 ABG HCO3 ABG O2 Saturation ABG Base Excess ABG Hemoglobin ABG Oxyhemoglobin VBG pH Oxyhemoglobin Sodium Potassium Chloride Carbon Dioxide BUN Creatinine Glucose POC Glucose 225 H 224 H Lactic Acid Calcium Ferritin AST Alkaline Phosphatase Magnesium Lactate Dehydrogenase Total Creatine Kinase CK-MB (CK-2) C-Reactive Protein Total Protein Albumin Troponin T HDL Cholesterol Urine WBC (Auto) 17.0 H Urine Creatinine Urine Total Protein Coronavirus (PCR) Crossmatch 05/28/20 05/29/20 05/29/20 Unknown 04:35 04:43 WBC RBC 3.48 L Hgb 9.8 L Hct 29.4 L MCHC RDW 16.0 H Lymph % (Auto) 7.4 L [place] % (Auto) Eos % (Auto) Lymph # 0.7 L [place] # Lymph # (Auto) [place] # (Auto) Seg Neutrophils % 89.1 H Seg Neuts % (Manual) Lymphocytes % (Manual) Seg Neutrophils # 8.1 H Seg Neutrophils # Man Lymphocytes # (Manual) Monocytes % (Manual) Eosinophils % (Manual) Monocytes # (Manual) Eosinophils # (Manual) D-Dimer Heparin Anti-Xa Level ABG pH POC ABG pCO2 POC ABG pO2 ABG pO2 ABG HCO3 19.3 L ABG O2 Saturation ABG Base Excess -4.5 L ABG Hemoglobin 9.7 L ABG Oxyhemoglobin VBG pH Oxyhemoglobin Sodium Potassium Chloride Carbon Dioxide BUN Creatinine Glucose POC Glucose Lactic Acid Calcium Ferritin AST Alkaline Phosphatase Magnesium Lactate Dehydrogenase Total Creatine Kinase CK-MB (CK-2) C-Reactive Protein Total Protein Albumin Troponin T HDL Cholesterol Urine WBC (Auto) Urine Creatinine Urine Total Protein Coronavirus (PCR) Positive A Crossmatch 05/29/20 05/29/20 05/29/20 04:43 15:10 17:17 WBC RBC Hgb 9.3 L Hct 28.7 L MCHC RDW Lymph % (Auto) [place] % (Auto) Eos % (Auto) Lymph # [place] # Lymph # (Auto) [place] # (Auto) Seg Neutrophils % Seg Neuts % (Manual) Lymphocytes % (Manual) Seg Neutrophils # Seg Neutrophils # Man Lymphocytes # (Manual) Monocytes % (Manual) Eosinophils % (Manual) Monocytes # (Manual) Eosinophils # (Manual) D-Dimer Heparin Anti-Xa Level ABG pH POC ABG pCO2 POC ABG pO2 ABG pO2 ABG HCO3 ABG O2 Saturation ABG Base Excess ABG Hemoglobin ABG Oxyhemoglobin VBG pH Oxyhemoglobin Sodium Potassium Chloride 110.2 H Carbon Dioxide 18 L BUN 32 H Creatinine 1.4 H Glucose 180 H POC Glucose 147 H Lactic Acid Calcium Ferritin AST Alkaline Phosphatase Magnesium Lactate Dehydrogenase Total Creatine Kinase CK-MB (CK-2) C-Reactive Protein Total Protein Albumin Troponin T HDL Cholesterol Urine WBC (Auto) Urine Creatinine Urine Total Protein Coronavirus (PCR) Crossmatch 05/30/20 05/30/20 05/30/20 00:08 00:12 04:15 WBC RBC Hgb Hct MCHC RDW Lymph % (Auto) [place] % (Auto) Eos % (Auto) Lymph # [place] # Lymph # (Auto) [place] # (Auto) Seg Neutrophils % Seg Neuts % (Manual) Lymphocytes % (Manual) Seg Neutrophils # Seg Neutrophils # Man Lymphocytes # (Manual) Monocytes % (Manual) Eosinophils % (Manual) Monocytes # (Manual) Eosinophils # (Manual) D-Dimer Heparin Anti-Xa Level 0.71 H ABG pH 7.460 H POC ABG pCO2 POC ABG pO2 ABG pO2 106.0 H ABG HCO3 18.9 L ABG O2 Saturation ABG Base Excess -4.4 L ABG Hemoglobin 6.8 L ABG Oxyhemoglobin VBG pH Oxyhemoglobin Sodium Potassium Chloride Carbon Dioxide BUN Creatinine Glucose POC Glucose 195 H Lactic Acid Calcium Ferritin AST Alkaline Phosphatase Magnesium Lactate Dehydrogenase Total Creatine Kinase CK-MB (CK-2) C-Reactive Protein Total Protein Albumin Troponin T HDL Cholesterol Urine WBC (Auto) Urine Creatinine Urine Total Protein Coronavirus (PCR) Crossmatch 05/30/20 05/30/20 05/30/20 06:07 08:37 12:33 WBC RBC Hgb Hct MCHC RDW Lymph % (Auto) [place] % (Auto) Eos % (Auto) Lymph # [place] # Lymph # (Auto) [place] # (Auto) Seg Neutrophils % Seg Neuts % (Manual) Lymphocytes % (Manual) Seg Neutrophils # Seg Neutrophils # Man Lymphocytes # (Manual) Monocytes % (Manual) Eosinophils % (Manual) Monocytes # (Manual) Eosinophils # (Manual) D-Dimer Heparin Anti-Xa Level 0.85 H ABG pH POC ABG pCO2 POC ABG pO2 ABG pO2 ABG HCO3 ABG O2 Saturation ABG Base Excess ABG Hemoglobin ABG Oxyhemoglobin VBG pH Oxyhemoglobin Sodium Potassium Chloride Carbon Dioxide BUN Creatinine Glucose POC Glucose 182 H 187 H Lactic Acid Calcium Ferritin AST Alkaline Phosphatase Magnesium Lactate Dehydrogenase Total Creatine Kinase CK-MB (CK-2) C-Reactive Protein Total Protein Albumin Troponin T HDL Cholesterol Urine WBC (Auto) Urine Creatinine Urine Total Protein Coronavirus (PCR) Crossmatch 05/30/20 05/30/20 05/30/20 15:58 17:57 23:36 WBC RBC Hgb Hct MCHC RDW Lymph % (Auto) [place] % (Auto) Eos % (Auto) Lymph # [place] # Lymph # (Auto) [place] # (Auto) Seg Neutrophils % Seg Neuts % (Manual) Lymphocytes % (Manual) Seg Neutrophils # Seg Neutrophils # Man Lymphocytes # (Manual) Monocytes % (Manual) Eosinophils % (Manual) Monocytes # (Manual) Eosinophils # (Manual) D-Dimer Heparin Anti-Xa Level 1.03 H ABG pH POC ABG pCO2 POC ABG pO2 ABG pO2 ABG HCO3 ABG O2 Saturation ABG Base Excess ABG Hemoglobin ABG Oxyhemoglobin VBG pH Oxyhemoglobin Sodium Potassium Chloride Carbon Dioxide BUN Creatinine Glucose POC Glucose 208 H 185 H Lactic Acid Calcium Ferritin AST Alkaline Phosphatase Magnesium Lactate Dehydrogenase Total Creatine Kinase CK-MB (CK-2) C-Reactive Protein Total Protein Albumin Troponin T HDL Cholesterol Urine WBC (Auto) Urine Creatinine Urine Total Protein Coronavirus (PCR) Crossmatch 05/31/20 05/31/20 05/31/20 02:16 03:55 06:16 WBC RBC Hgb 9.2 L Hct 27.5 L MCHC RDW Lymph % (Auto) [place] % (Auto) Eos % (Auto) Lymph # [place] # Lymph # (Auto) [place] # (Auto) Seg Neutrophils % Seg Neuts % (Manual) Lymphocytes % (Manual) Seg Neutrophils # Seg Neutrophils # Man Lymphocytes # (Manual) Monocytes % (Manual) Eosinophils % (Manual) Monocytes # (Manual) Eosinophils # (Manual) D-Dimer Heparin Anti-Xa Level ABG pH POC ABG pCO2 POC ABG pO2 ABG pO2 94.7 H ABG HCO3 18.6 L ABG O2 Saturation ABG Base Excess -5.5 L ABG Hemoglobin 7.9 L ABG Oxyhemoglobin VBG pH Oxyhemoglobin Sodium Potassium Chloride Carbon Dioxide BUN Creatinine Glucose POC Glucose 160 H Lactic Acid Calcium Ferritin AST Alkaline Phosphatase Magnesium Lactate Dehydrogenase Total Creatine Kinase CK-MB (CK-2) C-Reactive Protein Total Protein Albumin Troponin T HDL Cholesterol Urine WBC (Auto) Urine Creatinine Urine Total Protein Coronavirus (PCR) Crossmatch 05/31/20 05/31/20 05/31/20 12:20 13:03 18:13 WBC RBC Hgb Hct MCHC RDW Lymph % (Auto) [place] % (Auto) Eos % (Auto) Lymph # [place] # Lymph # (Auto) [place] # (Auto) Seg Neutrophils % Seg Neuts % (Manual) Lymphocytes % (Manual) Seg Neutrophils # Seg Neutrophils # Man Lymphocytes # (Manual) Monocytes % (Manual) Eosinophils % (Manual) Monocytes # (Manual) Eosinophils # (Manual) D-Dimer Heparin Anti-Xa Level ABG pH POC ABG pCO2 POC ABG pO2 ABG pO2 ABG HCO3 ABG O2 Saturation ABG Base Excess ABG Hemoglobin ABG Oxyhemoglobin VBG pH Oxyhemoglobin Sodium Potassium Chloride Carbon Dioxide 18 L BUN 48 H Creatinine 1.6 H Glucose 115 H POC Glucose 128 H 159 H Lactic Acid Calcium 8.3 L Ferritin AST Alkaline Phosphatase Magnesium Lactate Dehydrogenase Total Creatine Kinase CK-MB (CK-2) C-Reactive Protein Total Protein 5.4 L Albumin 2.4 L Troponin T HDL Cholesterol Urine WBC (Auto) Urine Creatinine Urine Total Protein Coronavirus (PCR) Crossmatch 05/31/20 06/01/20 06/01/20 23:51 04:00 05:48 WBC RBC Hgb Hct MCHC RDW Lymph % (Auto) [place] % (Auto) Eos % (Auto) Lymph # [place] # Lymph # (Auto) [place] # (Auto) Seg Neutrophils % Seg Neuts % (Manual) Lymphocytes % (Manual) Seg Neutrophils # Seg Neutrophils # Man Lymphocytes # (Manual) Monocytes % (Manual) Eosinophils % (Manual) Monocytes # (Manual) Eosinophils # (Manual) D-Dimer Heparin Anti-Xa Level ABG pH POC ABG pCO2 POC ABG pO2 ABG pO2 109.8 H ABG HCO3 18.8 L ABG O2 Saturation ABG Base Excess -5.9 L ABG Hemoglobin 7.8 L ABG Oxyhemoglobin VBG pH Oxyhemoglobin Sodium Potassium Chloride Carbon Dioxide BUN Creatinine Glucose POC Glucose 171 H 133 H Lactic Acid Calcium Ferritin AST Alkaline Phosphatase Magnesium Lactate Dehydrogenase Total Creatine Kinase CK-MB (CK-2) C-Reactive Protein Total Protein Albumin Troponin T HDL Cholesterol Urine WBC (Auto) Urine Creatinine Urine Total Protein Coronavirus (PCR) Crossmatch 06/01/20 06/01/20 06/02/20 12:28 17:29 00:08 WBC RBC Hgb Hct MCHC RDW Lymph % (Auto) [place] % (Auto) Eos % (Auto) Lymph # [place] # Lymph # (Auto) [place] # (Auto) Seg Neutrophils % Seg Neuts % (Manual) Lymphocytes % (Manual) Seg Neutrophils # Seg Neutrophils # Man Lymphocytes # (Manual) Monocytes % (Manual) Eosinophils % (Manual) Monocytes # (Manual) Eosinophils # (Manual) D-Dimer Heparin Anti-Xa Level ABG pH POC ABG pCO2 POC ABG pO2 ABG pO2 ABG HCO3 ABG O2 Saturation ABG Base Excess ABG Hemoglobin ABG Oxyhemoglobin VBG pH Oxyhemoglobin Sodium Potassium Chloride Carbon Dioxide BUN Creatinine Glucose POC Glucose 199 H 209 H 162 H Lactic Acid Calcium Ferritin AST Alkaline Phosphatase Magnesium Lactate Dehydrogenase Total Creatine Kinase CK-MB (CK-2) C-Reactive Protein Total Protein Albumin Troponin T HDL Cholesterol Urine WBC (Auto) Urine Creatinine Urine Total Protein Coronavirus (PCR) Crossmatch 06/02/20 06/02/20 06/02/20 04:20 04:20 04:44 WBC RBC Hgb 10.0 L Hct MCHC RDW Lymph % (Auto) [place] % (Auto) Eos % (Auto) Lymph # [place] # Lymph # (Auto) [place] # (Auto) Seg Neutrophils % Seg Neuts % (Manual) Lymphocytes % (Manual) Seg Neutrophils # Seg Neutrophils # Man Lymphocytes # (Manual) Monocytes % (Manual) Eosinophils % (Manual) Monocytes # (Manual) Eosinophils # (Manual) D-Dimer Heparin Anti-Xa Level 0.10 L ABG pH POC ABG pCO2 POC ABG pO2 ABG pO2 150.6 H ABG HCO3 ABG O2 Saturation ABG Base Excess -4.1 L ABG Hemoglobin 11.8 L ABG Oxyhemoglobin VBG pH Oxyhemoglobin Sodium Potassium Chloride Carbon Dioxide BUN Creatinine Glucose POC Glucose Lactic Acid Calcium Ferritin AST Alkaline Phosphatase Magnesium Lactate Dehydrogenase Total Creatine Kinase CK-MB (CK-2) C-Reactive Protein Total Protein Albumin Troponin T HDL Cholesterol Urine WBC (Auto) Urine Creatinine Urine Total Protein Coronavirus (PCR) Crossmatch 06/02/20 06/02/20 06/02/20 05:53 12:04 13:49 WBC RBC Hgb Hct MCHC RDW Lymph % (Auto) [place] % (Auto) Eos % (Auto) Lymph # [place] # Lymph # (Auto) [place] # (Auto) Seg Neutrophils % Seg Neuts % (Manual) Lymphocytes % (Manual) Seg Neutrophils # Seg Neutrophils # Man Lymphocytes # (Manual) Monocytes % (Manual) Eosinophils % (Manual) Monocytes # (Manual) Eosinophils # (Manual) D-Dimer Heparin Anti-Xa Level 0.28 L ABG pH POC ABG pCO2 POC ABG pO2 ABG pO2 ABG HCO3 ABG O2 Saturation ABG Base Excess ABG Hemoglobin ABG Oxyhemoglobin VBG pH Oxyhemoglobin Sodium Potassium Chloride Carbon Dioxide BUN Creatinine Glucose POC Glucose 149 H 220 H Lactic Acid Calcium Ferritin AST Alkaline Phosphatase Magnesium Lactate Dehydrogenase Total Creatine Kinase CK-MB (CK-2) C-Reactive Protein Total Protein Albumin Troponin T HDL Cholesterol Urine WBC (Auto) Urine Creatinine Urine Total Protein Coronavirus (PCR) Crossmatch 06/02/20 06/02/20 06/03/20 13:49 18:31 00:42 WBC RBC Hgb Hct MCHC RDW Lymph % (Auto) [place] % (Auto) Eos % (Auto) Lymph # [place] # Lymph # (Auto) [place] # (Auto) Seg Neutrophils % Seg Neuts % (Manual) Lymphocytes % (Manual) Seg Neutrophils # Seg Neutrophils # Man Lymphocytes # (Manual) Monocytes % (Manual) Eosinophils % (Manual) Monocytes # (Manual) Eosinophils # (Manual) D-Dimer 769.68 H Heparin Anti-Xa Level ABG pH POC ABG pCO2 POC ABG pO2 ABG pO2 ABG HCO3 ABG O2 Saturation ABG Base Excess ABG Hemoglobin ABG Oxyhemoglobin VBG pH Oxyhemoglobin Sodium Potassium Chloride Carbon Dioxide BUN Creatinine Glucose POC Glucose 225 H 212 H Lactic Acid Calcium Ferritin AST Alkaline Phosphatase Magnesium Lactate Dehydrogenase Total Creatine Kinase CK-MB (CK-2) C-Reactive Protein Total Protein Albumin Troponin T HDL Cholesterol Urine WBC (Auto) Urine Creatinine Urine Total Protein Coronavirus (PCR) Crossmatch 06/03/20 06/03/20 06/03/20 05:16 05:16 05:25 WBC 11.4 H RBC Hgb Hct MCHC RDW 16.4 H Lymph % (Auto) [place] % (Auto) Eos % (Auto) Lymph # [place] # Lymph # (Auto) [place] # (Auto) Seg Neutrophils % Seg Neuts % (Manual) Lymphocytes % (Manual) Seg Neutrophils # Seg Neutrophils # Man Lymphocytes # (Manual) Monocytes % (Manual) Eosinophils % (Manual) Monocytes # (Manual) Eosinophils # (Manual) D-Dimer Heparin Anti-Xa Level ABG pH POC ABG pCO2 POC ABG pO2 ABG pO2 160.9 H ABG HCO3 19.4 L ABG O2 Saturation ABG Base Excess -4.9 L ABG Hemoglobin 7.0 L ABG Oxyhemoglobin VBG pH Oxyhemoglobin Sodium Potassium Chloride Carbon Dioxide 18 L BUN 65 H Creatinine 2.0 H Glucose 175 H POC Glucose Lactic Acid Calcium 8.0 L Ferritin AST Alkaline Phosphatase Magnesium Lactate Dehydrogenase Total Creatine Kinase CK-MB (CK-2) C-Reactive Protein Total Protein 5.5 L Albumin 2.2 L Troponin T HDL Cholesterol Urine WBC (Auto) Urine Creatinine Urine Total Protein Coronavirus (PCR) Crossmatch 06/03/20 06/03/20 06/03/20 06:07 11:58 18:24 WBC RBC Hgb Hct MCHC RDW Lymph % (Auto) [place] % (Auto) Eos % (Auto) Lymph # [place] # Lymph # (Auto) [place] # (Auto) Seg Neutrophils % Seg Neuts % (Manual) Lymphocytes % (Manual) Seg Neutrophils # Seg Neutrophils # Man Lymphocytes # (Manual) Monocytes % (Manual) Eosinophils % (Manual) Monocytes # (Manual) Eosinophils # (Manual) D-Dimer Heparin Anti-Xa Level ABG pH POC ABG pCO2 POC ABG pO2 ABG pO2 ABG HCO3 ABG O2 Saturation ABG Base Excess ABG Hemoglobin ABG Oxyhemoglobin VBG pH Oxyhemoglobin Sodium Potassium Chloride Carbon Dioxide BUN Creatinine Glucose POC Glucose 177 H 163 H 211 H Lactic Acid Calcium Ferritin AST Alkaline Phosphatase Magnesium Lactate Dehydrogenase Total Creatine Kinase CK-MB (CK-2) C-Reactive Protein Total Protein Albumin Troponin T HDL Cholesterol Urine WBC (Auto) Urine Creatinine Urine Total Protein Coronavirus (PCR) Crossmatch 06/03/20 06/03/20 06/04/20 21:50 Unknown 00:26 WBC RBC Hgb Hct MCHC RDW Lymph % (Auto) [place] % (Auto) Eos % (Auto) Lymph # [place] # Lymph # (Auto) [place] # (Auto) Seg Neutrophils % Seg Neuts % (Manual) Lymphocytes % (Manual) Seg Neutrophils # Seg Neutrophils # Man Lymphocytes # (Manual) Monocytes % (Manual) Eosinophils % (Manual) Monocytes # (Manual) Eosinophils # (Manual) D-Dimer Heparin Anti-Xa Level ABG pH POC ABG pCO2 POC ABG pO2 ABG pO2 ABG HCO3 ABG O2 Saturation ABG Base Excess ABG Hemoglobin ABG Oxyhemoglobin VBG pH Oxyhemoglobin Sodium 135 L Potassium Chloride Carbon Dioxide 18 L BUN Creatinine Glucose POC Glucose 241 H Lactic Acid Calcium Ferritin AST Alkaline Phosphatase Magnesium Lactate Dehydrogenase Total Creatine Kinase CK-MB (CK-2) C-Reactive Protein Total Protein Albumin Troponin T HDL Cholesterol Urine WBC (Auto) 11.0 H Urine Creatinine Urine Total Protein Coronavirus (PCR) Crossmatch 06/04/20 06/04/20 06/04/20 03:35 04:19 04:19 WBC RBC 3.15 L Hgb 8.9 L Hct 26.8 L D MCHC RDW 15.9 H Lymph % (Auto) 6.0 L [place] % (Auto) Eos % (Auto) Lymph # 0.6 L [place] # Lymph # (Auto) [place] # (Auto) Seg Neutrophils % 86.6 H Seg Neuts % (Manual) Lymphocytes % (Manual) Seg Neutrophils # 9.1 H Seg Neutrophils # Man Lymphocytes # (Manual) Monocytes % (Manual) Eosinophils % (Manual) Monocytes # (Manual) Eosinophils # (Manual) D-Dimer Heparin Anti-Xa Level ABG pH 7.331 L POC ABG pCO2 POC ABG pO2 ABG pO2 ABG HCO3 ABG O2 Saturation ABG Base Excess -4.7 L ABG Hemoglobin 11.0 L ABG Oxyhemoglobin VBG pH Oxyhemoglobin 93.9 L Sodium 136 L Potassium Chloride Carbon Dioxide 20 L BUN 73 H Creatinine 2.0 H Glucose 192 H POC Glucose Lactic Acid Calcium 8.0 L Ferritin AST Alkaline Phosphatase Magnesium Lactate Dehydrogenase 271 H Total Creatine Kinase CK-MB (CK-2) C-Reactive Protein 2.20 H Total Protein 5.0 L Albumin 2.0 L Troponin T HDL Cholesterol Urine WBC (Auto) Urine Creatinine Urine Total Protein Coronavirus (PCR) Crossmatch 06/04/20 06/04/20 06/04/20 04:19 05:51 11:48 WBC RBC Hgb Hct MCHC RDW Lymph % (Auto) [place] % (Auto) Eos % (Auto) Lymph # [place] # Lymph # (Auto) [place] # (Auto) Seg Neutrophils % Seg Neuts % (Manual) Lymphocytes % (Manual) Seg Neutrophils # Seg Neutrophils # Man Lymphocytes # (Manual) Monocytes % (Manual) Eosinophils % (Manual) Monocytes # (Manual) Eosinophils # (Manual) D-Dimer 414.52 H Heparin Anti-Xa Level ABG pH POC ABG pCO2 POC ABG pO2 ABG pO2 ABG HCO3 ABG O2 Saturation ABG Base Excess ABG Hemoglobin ABG Oxyhemoglobin VBG pH Oxyhemoglobin Sodium Potassium Chloride Carbon Dioxide BUN Creatinine Glucose POC Glucose 179 H 213 H Lactic Acid Calcium Ferritin AST Alkaline Phosphatase Magnesium Lactate Dehydrogenase Total Creatine Kinase CK-MB (CK-2) C-Reactive Protein Total Protein Albumin Troponin T HDL Cholesterol Urine WBC (Auto) Urine Creatinine Urine Total Protein Coronavirus (PCR) Crossmatch 06/04/20 06/05/20 06/05/20 18:25 00:16 05:00 WBC RBC Hgb Hct MCHC RDW Lymph % (Auto) [place] % (Auto) Eos % (Auto) Lymph # [place] # Lymph # (Auto) [place] # (Auto) Seg Neutrophils % Seg Neuts % (Manual) Lymphocytes % (Manual) Seg Neutrophils # Seg Neutrophils # Man Lymphocytes # (Manual) Monocytes % (Manual) Eosinophils % (Manual) Monocytes # (Manual) Eosinophils # (Manual) D-Dimer Heparin Anti-Xa Level ABG pH 7.286 L POC ABG pCO2 POC ABG pO2 ABG pO2 96.2 H ABG HCO3 ABG O2 Saturation ABG Base Excess -6.3 L ABG Hemoglobin 8.8 L ABG Oxyhemoglobin VBG pH Oxyhemoglobin 94.8 L Sodium Potassium Chloride Carbon Dioxide BUN Creatinine Glucose POC Glucose 238 H 183 H Lactic Acid Calcium Ferritin AST Alkaline Phosphatase Magnesium Lactate Dehydrogenase Total Creatine Kinase CK-MB (CK-2) C-Reactive Protein Total Protein Albumin Troponin T HDL Cholesterol Urine WBC (Auto) Urine Creatinine Urine Total Protein Coronavirus (PCR) Crossmatch 06/05/20 06/05/20 06/05/20 05:39 07:25 07:25 WBC RBC 2.97 L Hgb 8.7 L Hct 25.7 L MCHC RDW 16.0 H Lymph % (Auto) 8.8 L [place] % (Auto) 13.3 H Eos % (Auto) Lymph # 0.8 L [place] # 1.3 H Lymph # (Auto) [place] # (Auto) Seg Neutrophils % 77.3 H Seg Neuts % (Manual) Lymphocytes % (Manual) Seg Neutrophils # Seg Neutrophils # Man Lymphocytes # (Manual) Monocytes % (Manual) Eosinophils % (Manual) Monocytes # (Manual) Eosinophils # (Manual) D-Dimer Heparin Anti-Xa Level ABG pH POC ABG pCO2 POC ABG pO2 ABG pO2 ABG HCO3 ABG O2 Saturation ABG Base Excess ABG Hemoglobin ABG Oxyhemoglobin VBG pH Oxyhemoglobin Sodium 133 L Potassium Chloride Carbon Dioxide 17 L BUN 89 H Creatinine 2.8 H Glucose 176 H POC Glucose 149 H Lactic Acid Calcium 7.7 L Ferritin AST Alkaline Phosphatase Magnesium Lactate Dehydrogenase Total Creatine Kinase CK-MB (CK-2) C-Reactive Protein Total Protein 4.2 L Albumin 1.9 L Troponin T HDL Cholesterol Urine WBC (Auto) Urine Creatinine Urine Total Protein Coronavirus (PCR) Crossmatch 06/05/20 06/05/20 06/05/20 07:25 12:05 15:41 WBC RBC Hgb Hct MCHC RDW Lymph % (Auto) [place] % (Auto) Eos % (Auto) Lymph # [place] # Lymph # (Auto) [place] # (Auto) Seg Neutrophils % Seg Neuts % (Manual) Lymphocytes % (Manual) Seg Neutrophils # Seg Neutrophils # Man Lymphocytes # (Manual) Monocytes % (Manual) Eosinophils % (Manual) Monocytes # (Manual) Eosinophils # (Manual) D-Dimer Heparin Anti-Xa Level 0.76 H 0.81 H ABG pH POC ABG pCO2 POC ABG pO2 ABG pO2 ABG HCO3 ABG O2 Saturation ABG Base Excess ABG Hemoglobin ABG Oxyhemoglobin VBG pH Oxyhemoglobin Sodium Potassium Chloride Carbon Dioxide BUN Creatinine Glucose POC Glucose 198 H Lactic Acid Calcium Ferritin AST Alkaline Phosphatase Magnesium Lactate Dehydrogenase Total Creatine Kinase CK-MB (CK-2) C-Reactive Protein Total Protein Albumin Troponin T HDL Cholesterol Urine WBC (Auto) Urine Creatinine Urine Total Protein Coronavirus (PCR) Crossmatch 06/05/20 06/05/20 06/06/20 18:08 23:25 04:00 WBC RBC Hgb Hct MCHC RDW Lymph % (Auto) [place] % (Auto) Eos % (Auto) Lymph # [place] # Lymph # (Auto) [place] # (Auto) Seg Neutrophils % Seg Neuts % (Manual) Lymphocytes % (Manual) Seg Neutrophils # Seg Neutrophils # Man Lymphocytes # (Manual) Monocytes % (Manual) Eosinophils % (Manual) Monocytes # (Manual) Eosinophils # (Manual) D-Dimer Heparin Anti-Xa Level ABG pH POC ABG pCO2 POC ABG pO2 ABG pO2 ABG HCO3 ABG O2 Saturation ABG Base Excess ABG Hemoglobin ABG Oxyhemoglobin VBG pH Oxyhemoglobin Sodium Potassium Chloride Carbon Dioxide BUN Creatinine Glucose POC Glucose 223 H 169 H Lactic Acid Calcium Ferritin AST Alkaline Phosphatase Magnesium Lactate Dehydrogenase Total Creatine Kinase CK-MB (CK-2) C-Reactive Protein Total Protein Albumin Troponin T HDL Cholesterol Urine WBC (Auto) 15.0 H Urine Creatinine Urine Total Protein Coronavirus (PCR) Crossmatch 06/06/20 06/06/20 06/06/20 04:00 05:33 05:38 WBC RBC 2.97 L Hgb 8.7 L Hct 26.8 L MCHC RDW 16.8 H Lymph % (Auto) [place] % (Auto) Eos % (Auto) Lymph # [place] # Lymph # (Auto) [place] # (Auto) Seg Neutrophils % Seg Neuts % (Manual) Lymphocytes % (Manual) Seg Neutrophils # Seg Neutrophils # Man Lymphocytes # (Manual) Monocytes % (Manual) Eosinophils % (Manual) Monocytes # (Manual) Eosinophils # (Manual) D-Dimer Heparin Anti-Xa Level ABG pH POC ABG pCO2 POC ABG pO2 ABG pO2 ABG HCO3 ABG O2 Saturation ABG Base Excess ABG Hemoglobin ABG Oxyhemoglobin VBG pH Oxyhemoglobin Sodium Potassium Chloride Carbon Dioxide BUN Creatinine Glucose POC Glucose 186 H Lactic Acid Calcium Ferritin AST Alkaline Phosphatase Magnesium Lactate Dehydrogenase Total Creatine Kinase CK-MB (CK-2) C-Reactive Protein Total Protein Albumin Troponin T HDL Cholesterol Urine WBC (Auto) Urine Creatinine 82.2 H Urine Total Protein 196 H Coronavirus (PCR) Crossmatch 06/06/20 06/06/20 06/06/20 05:38 12:25 17:03 WBC RBC Hgb Hct MCHC RDW Lymph % (Auto) [place] % (Auto) Eos % (Auto) Lymph # [place] # Lymph # (Auto) [place] # (Auto) Seg Neutrophils % Seg Neuts % (Manual) Lymphocytes % (Manual) Seg Neutrophils # Seg Neutrophils # Man Lymphocytes # (Manual) Monocytes % (Manual) Eosinophils % (Manual) Monocytes # (Manual) Eosinophils # (Manual) D-Dimer Heparin Anti-Xa Level ABG pH POC ABG pCO2 POC ABG pO2 ABG pO2 ABG HCO3 ABG O2 Saturation ABG Base Excess ABG Hemoglobin ABG Oxyhemoglobin VBG pH Oxyhemoglobin Sodium 134 L Potassium 5.2 H Chloride Carbon Dioxide 18 L BUN 97 H Creatinine 2.5 H Glucose 193 H POC Glucose 239 H 252 H Lactic Acid Calcium 7.5 L Ferritin AST Alkaline Phosphatase Magnesium Lactate Dehydrogenase Total Creatine Kinase CK-MB (CK-2) C-Reactive Protein Total Protein 4.1 L Albumin 1.9 L Troponin T HDL Cholesterol Urine WBC (Auto) Urine Creatinine Urine Total Protein Coronavirus (PCR) Crossmatch 06/07/20 06/07/20 06/07/20 00:16 01:49 04:00 WBC RBC 2.91 L Hgb 8.4 L Hct 25.0 L MCHC RDW 16.1 H Lymph % (Auto) 5.7 L [place] % (Auto) 10.5 H Eos % (Auto) Lymph # 0.6 L [place] # 1.1 H Lymph # (Auto) [place] # (Auto) Seg Neutrophils % 83.6 H Seg Neuts % (Manual) Lymphocytes % (Manual) Seg Neutrophils # 9.1 H Seg Neutrophils # Man Lymphocytes # (Manual) Monocytes % (Manual) Eosinophils % (Manual) Monocytes # (Manual) Eosinophils # (Manual) D-Dimer Heparin Anti-Xa Level 0.26 L ABG pH POC ABG pCO2 POC ABG pO2 ABG pO2 ABG HCO3 ABG O2 Saturation ABG Base Excess ABG Hemoglobin ABG Oxyhemoglobin VBG pH Oxyhemoglobin Sodium Potassium Chloride Carbon Dioxide BUN Creatinine Glucose POC Glucose 173 H Lactic Acid Calcium Ferritin AST Alkaline Phosphatase Magnesium Lactate Dehydrogenase Total Creatine Kinase CK-MB (CK-2) C-Reactive Protein Total Protein Albumin Troponin T HDL Cholesterol Urine WBC (Auto) Urine Creatinine Urine Total Protein Coronavirus (PCR) Crossmatch 06/07/20 06/07/20 06/07/20 04:00 04:54 05:51 WBC RBC Hgb Hct MCHC RDW Lymph % (Auto) [place] % (Auto) Eos % (Auto) Lymph # [place] # Lymph # (Auto) [place] # (Auto) Seg Neutrophils % Seg Neuts % (Manual) Lymphocytes % (Manual) Seg Neutrophils # Seg Neutrophils # Man Lymphocytes # (Manual) Monocytes % (Manual) Eosinophils % (Manual) Monocytes # (Manual) Eosinophils # (Manual) D-Dimer Heparin Anti-Xa Level ABG pH 7.317 L POC ABG pCO2 POC ABG pO2 ABG pO2 71.4 L ABG HCO3 ABG O2 Saturation 94.3 L ABG Base Excess -4.8 L ABG Hemoglobin 7.1 L ABG Oxyhemoglobin VBG pH Oxyhemoglobin 92.2 L Sodium 133 L Potassium Chloride Carbon Dioxide 18 L BUN 100 H Creatinine 2.5 H Glucose 158 H POC Glucose 168 H Lactic Acid Calcium 7.6 L Ferritin AST Alkaline Phosphatase Magnesium Lactate Dehydrogenase Total Creatine Kinase CK-MB (CK-2) C-Reactive Protein Total Protein 4.7 L Albumin 2.0 L Troponin T HDL Cholesterol Urine WBC (Auto) Urine Creatinine Urine Total Protein Coronavirus (PCR) Crossmatch 06/07/20 06/07/20 06/07/20 12:03 17:17 20:10 WBC RBC Hgb Hct MCHC RDW Lymph % (Auto) [place] % (Auto) Eos % (Auto) Lymph # [place] # Lymph # (Auto) [place] # (Auto) Seg Neutrophils % Seg Neuts % (Manual) Lymphocytes % (Manual) Seg Neutrophils # Seg Neutrophils # Man Lymphocytes # (Manual) Monocytes % (Manual) Eosinophils % (Manual) Monocytes # (Manual) Eosinophils # (Manual) D-Dimer Heparin Anti-Xa Level 0.17 L ABG pH POC ABG pCO2 POC ABG pO2 ABG pO2 ABG HCO3 ABG O2 Saturation ABG Base Excess ABG Hemoglobin ABG Oxyhemoglobin VBG pH Oxyhemoglobin Sodium Potassium Chloride Carbon Dioxide BUN Creatinine Glucose POC Glucose 276 H 281 H Lactic Acid Calcium Ferritin AST Alkaline Phosphatase Magnesium Lactate Dehydrogenase Total Creatine Kinase CK-MB (CK-2) C-Reactive Protein Total Protein Albumin Troponin T HDL Cholesterol Urine WBC (Auto) Urine Creatinine Urine Total Protein Coronavirus (PCR) Crossmatch 06/08/20 06/08/20 06/08/20 00:02 04:47 04:47 WBC 16.4 H RBC 3.07 L Hgb 8.6 L Hct 26.5 L MCHC RDW 16.3 H Lymph % (Auto) [place] % (Auto) Eos % (Auto) Lymph # [place] # Lymph # (Auto) [place] # (Auto) Seg Neutrophils % Seg Neuts % (Manual) 90.0 H Lymphocytes % (Manual) 3.0 L Seg Neutrophils # Seg Neutrophils # Man 14.8 H Lymphocytes # (Manual) 0.5 L Monocytes % (Manual) Eosinophils % (Manual) Monocytes # (Manual) 1.1 H Eosinophils # (Manual) D-Dimer Heparin Anti-Xa Level ABG pH POC ABG pCO2 POC ABG pO2 ABG pO2 ABG HCO3 ABG O2 Saturation ABG Base Excess ABG Hemoglobin ABG Oxyhemoglobin VBG pH Oxyhemoglobin Sodium 129 L Potassium Chloride 95.6 L Carbon Dioxide 17 L BUN 106 H Creatinine 2.5 H Glucose 213 H POC Glucose 242 H Lactic Acid Calcium 7.6 L Ferritin AST Alkaline Phosphatase Magnesium Lactate Dehydrogenase Total Creatine Kinase CK-MB (CK-2) C-Reactive Protein Total Protein 5.0 L Albumin 2.1 L Troponin T HDL Cholesterol Urine WBC (Auto) Urine Creatinine Urine Total Protein Coronavirus (PCR) Crossmatch 06/08/20 06/08/20 06/08/20 05:40 11:55 17:54 WBC RBC Hgb Hct MCHC RDW Lymph % (Auto) [place] % (Auto) Eos % (Auto) Lymph # [place] # Lymph # (Auto) [place] # (Auto) Seg Neutrophils % Seg Neuts % (Manual) Lymphocytes % (Manual) Seg Neutrophils # Seg Neutrophils # Man Lymphocytes # (Manual) Monocytes % (Manual) Eosinophils % (Manual) Monocytes # (Manual) Eosinophils # (Manual) D-Dimer Heparin Anti-Xa Level ABG pH POC ABG pCO2 POC ABG pO2 ABG pO2 ABG HCO3 ABG O2 Saturation ABG Base Excess ABG Hemoglobin ABG Oxyhemoglobin VBG pH Oxyhemoglobin Sodium Potassium Chloride Carbon Dioxide BUN Creatinine Glucose POC Glucose 221 H 218 H 163 H Lactic Acid Calcium Ferritin AST Alkaline Phosphatase Magnesium Lactate Dehydrogenase Total Creatine Kinase CK-MB (CK-2) C-Reactive Protein Total Protein Albumin Troponin T HDL Cholesterol Urine WBC (Auto) Urine Creatinine Urine Total Protein Coronavirus (PCR) Crossmatch 06/08/20 06/09/20 06/09/20 22:01 00:09 05:16 WBC 19.0 H RBC 3.35 L Hgb 9.2 L Hct 28.5 L MCHC RDW 16.3 H Lymph % (Auto) [place] % (Auto) Eos % (Auto) Lymph # [place] # Lymph # (Auto) [place] # (Auto) Seg Neutrophils % Seg Neuts % (Manual) 85.0 H Lymphocytes % (Manual) 7.0 L Seg Neutrophils # Seg Neutrophils # Man 16.2 H Lymphocytes # (Manual) Monocytes % (Manual) Eosinophils % (Manual) Monocytes # (Manual) 1.3 H Eosinophils # (Manual) D-Dimer Heparin Anti-Xa Level ABG pH POC ABG pCO2 POC ABG pO2 ABG pO2 ABG HCO3 ABG O2 Saturation ABG Base Excess ABG Hemoglobin ABG Oxyhemoglobin VBG pH Oxyhemoglobin Sodium Potassium Chloride Carbon Dioxide BUN Creatinine Glucose POC Glucose 182 H 150 H Lactic Acid Calcium Ferritin AST Alkaline Phosphatase Magnesium Lactate Dehydrogenase Total Creatine Kinase CK-MB (CK-2) C-Reactive Protein Total Protein Albumin Troponin T HDL Cholesterol Urine WBC (Auto) Urine Creatinine Urine Total Protein Coronavirus (PCR) Crossmatch 06/09/20 06/09/20 06/09/20 05:16 05:24 11:29 WBC RBC Hgb Hct MCHC RDW Lymph % (Auto) [place] % (Auto) Eos % (Auto) Lymph # [place] # Lymph # (Auto) [place] # (Auto) Seg Neutrophils % Seg Neuts % (Manual) Lymphocytes % (Manual) Seg Neutrophils # Seg Neutrophils # Man Lymphocytes # (Manual) Monocytes % (Manual) Eosinophils % (Manual) Monocytes # (Manual) Eosinophils # (Manual) D-Dimer Heparin Anti-Xa Level ABG pH POC ABG pCO2 POC ABG pO2 ABG pO2 ABG HCO3 ABG O2 Saturation ABG Base Excess ABG Hemoglobin ABG Oxyhemoglobin VBG pH Oxyhemoglobin Sodium 133 L Potassium Chloride Carbon Dioxide 19 L BUN 109 H Creatinine 2.1 H Glucose 133 H POC Glucose 128 H 119 H Lactic Acid Calcium 7.7 L Ferritin AST Alkaline Phosphatase < 5 L Magnesium Lactate Dehydrogenase Total Creatine Kinase CK-MB (CK-2) C-Reactive Protein Total Protein 4.6 L Albumin < 0.2 L Troponin T HDL Cholesterol Urine WBC (Auto) Urine Creatinine Urine Total Protein Coronavirus (PCR) Crossmatch 06/09/20 06/10/20 06/10/20 17:32 00:00 05:49 WBC RBC Hgb Hct MCHC RDW Lymph % (Auto) [place] % (Auto) Eos % (Auto) Lymph # [place] # Lymph # (Auto) [place] # (Auto) Seg Neutrophils % Seg Neuts % (Manual) Lymphocytes % (Manual) Seg Neutrophils # Seg Neutrophils # Man Lymphocytes # (Manual) Monocytes % (Manual) Eosinophils % (Manual) Monocytes # (Manual) Eosinophils # (Manual) D-Dimer Heparin Anti-Xa Level 0.19 L ABG pH POC ABG pCO2 POC ABG pO2 ABG pO2 ABG HCO3 ABG O2 Saturation ABG Base Excess ABG Hemoglobin ABG Oxyhemoglobin VBG pH Oxyhemoglobin Sodium Potassium Chloride Carbon Dioxide BUN Creatinine Glucose POC Glucose 106 H 117 H Lactic Acid Calcium Ferritin AST Alkaline Phosphatase Magnesium Lactate Dehydrogenase Total Creatine Kinase CK-MB (CK-2) C-Reactive Protein Total Protein Albumin Troponin T HDL Cholesterol Urine WBC (Auto) Urine Creatinine Urine Total Protein Coronavirus (PCR) Crossmatch 06/10/20 06/10/20 06/10/20 05:54 07:40 11:40 WBC RBC Hgb Hct MCHC RDW Lymph % (Auto) [place] % (Auto) Eos % (Auto) Lymph # [place] # Lymph # (Auto) [place] # (Auto) Seg Neutrophils % Seg Neuts % (Manual) Lymphocytes % (Manual) Seg Neutrophils # Seg Neutrophils # Man Lymphocytes # (Manual) Monocytes % (Manual) Eosinophils % (Manual) Monocytes # (Manual) Eosinophils # (Manual) D-Dimer Heparin Anti-Xa Level ABG pH POC ABG pCO2 POC ABG pO2 ABG pO2 ABG HCO3 ABG O2 Saturation ABG Base Excess ABG Hemoglobin ABG Oxyhemoglobin VBG pH Oxyhemoglobin Sodium 146 H D Potassium Chloride Carbon Dioxide 20 L BUN 99 H Creatinine 1.9 H Glucose 121 H POC Glucose 127 H 138 H Lactic Acid Calcium 8.2 L Ferritin AST Alkaline Phosphatase Magnesium Lactate Dehydrogenase Total Creatine Kinase CK-MB (CK-2) C-Reactive Protein Total Protein Albumin Troponin T HDL Cholesterol Urine WBC (Auto) Urine Creatinine Urine Total Protein Coronavirus (PCR) Crossmatch 06/10/20 06/10/20 06/10/20 14:44 17:31 23:22 WBC RBC Hgb Hct MCHC RDW Lymph % (Auto) [place] % (Auto) Eos % (Auto) Lymph # [place] # Lymph # (Auto) [place] # (Auto) Seg Neutrophils % Seg Neuts % (Manual) Lymphocytes % (Manual) Seg Neutrophils # Seg Neutrophils # Man Lymphocytes # (Manual) Monocytes % (Manual) Eosinophils % (Manual) Monocytes # (Manual) Eosinophils # (Manual) D-Dimer Heparin Anti-Xa Level 0.17 L ABG pH POC ABG pCO2 POC ABG pO2 ABG pO2 ABG HCO3 ABG O2 Saturation ABG Base Excess ABG Hemoglobin ABG Oxyhemoglobin VBG pH Oxyhemoglobin Sodium Potassium Chloride Carbon Dioxide BUN Creatinine Glucose POC Glucose 128 H 114 H Lactic Acid Calcium Ferritin AST Alkaline Phosphatase Magnesium Lactate Dehydrogenase Total Creatine Kinase CK-MB (CK-2) C-Reactive Protein Total Protein Albumin Troponin T HDL Cholesterol Urine WBC (Auto) Urine Creatinine Urine Total Protein Coronavirus (PCR) Crossmatch 06/11/20 06/11/20 06/11/20 00:22 03:45 03:45 WBC 14.6 H RBC 2.77 L Hgb 7.9 L Hct 24.3 L MCHC RDW 16.8 H Lymph % (Auto) 6.6 L [place] % (Auto) 8.5 H Eos % (Auto) Lymph # 1.0 L [place] # 1.2 H Lymph # (Auto) [place] # (Auto) Seg Neutrophils % 82.9 H Seg Neuts % (Manual) Lymphocytes % (Manual) Seg Neutrophils # 12.1 H Seg Neutrophils # Man Lymphocytes # (Manual) Monocytes % (Manual) Eosinophils % (Manual) Monocytes # (Manual) Eosinophils # (Manual) D-Dimer Heparin Anti-Xa Level 0.24 L ABG pH POC ABG pCO2 POC ABG pO2 ABG pO2 ABG HCO3 ABG O2 Saturation ABG Base Excess ABG Hemoglobin ABG Oxyhemoglobin VBG pH Oxyhemoglobin Sodium Potassium Chloride Carbon Dioxide 20 L BUN 88 H Creatinine 1.5 H Glucose 111 H POC Glucose Lactic Acid Calcium 8.2 L Ferritin AST Alkaline Phosphatase Magnesium Lactate Dehydrogenase Total Creatine Kinase CK-MB (CK-2) C-Reactive Protein Total Protein Albumin Troponin T HDL Cholesterol Urine WBC (Auto) Urine Creatinine Urine Total Protein Coronavirus (PCR) Crossmatch 06/11/20 06/11/20 06/11/20 06:03 10:22 11:11 WBC RBC Hgb Hct MCHC RDW Lymph % (Auto) [place] % (Auto) Eos % (Auto) Lymph # [place] # Lymph # (Auto) [place] # (Auto) Seg Neutrophils % Seg Neuts % (Manual) Lymphocytes % (Manual) Seg Neutrophils # Seg Neutrophils # Man Lymphocytes # (Manual) Monocytes % (Manual) Eosinophils % (Manual) Monocytes # (Manual) Eosinophils # (Manual) D-Dimer Heparin Anti-Xa Level 0.26 L ABG pH POC ABG pCO2 POC ABG pO2 ABG pO2 ABG HCO3 ABG O2 Saturation ABG Base Excess ABG Hemoglobin 9.6 L ABG Oxyhemoglobin VBG pH Oxyhemoglobin Sodium Potassium Chloride Carbon Dioxide BUN Creatinine Glucose POC Glucose 114 H Lactic Acid Calcium Ferritin AST Alkaline Phosphatase Magnesium Lactate Dehydrogenase Total Creatine Kinase CK-MB (CK-2) C-Reactive Protein Total Protein Albumin Troponin T HDL Cholesterol Urine WBC (Auto) Urine Creatinine Urine Total Protein Coronavirus (PCR) Crossmatch 06/11/20 06/11/20 06/12/20 12:24 17:24 00:21 WBC RBC Hgb Hct MCHC RDW Lymph % (Auto) [place] % (Auto) Eos % (Auto) Lymph # [place] # Lymph # (Auto) [place] # (Auto) Seg Neutrophils % Seg Neuts % (Manual) Lymphocytes % (Manual) Seg Neutrophils # Seg Neutrophils # Man Lymphocytes # (Manual) Monocytes % (Manual) Eosinophils % (Manual) Monocytes # (Manual) Eosinophils # (Manual) D-Dimer Heparin Anti-Xa Level ABG pH POC ABG pCO2 POC ABG pO2 ABG pO2 ABG HCO3 ABG O2 Saturation ABG Base Excess ABG Hemoglobin ABG Oxyhemoglobin VBG pH Oxyhemoglobin Sodium Potassium Chloride Carbon Dioxide BUN Creatinine Glucose POC Glucose 119 H 126 H 117 H Lactic Acid Calcium Ferritin AST Alkaline Phosphatase Magnesium Lactate Dehydrogenase Total Creatine Kinase CK-MB (CK-2) C-Reactive Protein Total Protein Albumin Troponin T HDL Cholesterol Urine WBC (Auto) Urine Creatinine Urine Total Protein Coronavirus (PCR) Crossmatch 06/12/20 06/12/20 06/12/20 02:46 02:46 05:46 WBC 13.2 H RBC 2.83 L Hgb 8.3 L Hct 24.3 L MCHC RDW 16.6 H Lymph % (Auto) 6.2 L [place] % (Auto) 9.5 H Eos % (Auto) Lymph # 0.8 L [place] # 1.3 H Lymph # (Auto) [place] # (Auto) Seg Neutrophils % 81.9 H Seg Neuts % (Manual) Lymphocytes % (Manual) Seg Neutrophils # 10.9 H Seg Neutrophils # Man Lymphocytes # (Manual) Monocytes % (Manual) Eosinophils % (Manual) Monocytes # (Manual) Eosinophils # (Manual) D-Dimer Heparin Anti-Xa Level ABG pH POC ABG pCO2 POC ABG pO2 ABG pO2 ABG HCO3 ABG O2 Saturation ABG Base Excess ABG Hemoglobin ABG Oxyhemoglobin VBG pH Oxyhemoglobin Sodium Potassium 3.5 L Chloride Carbon Dioxide BUN 77 H Creatinine 1.3 H Glucose POC Glucose 132 H Lactic Acid Calcium 8.3 L Ferritin AST Alkaline Phosphatase Magnesium Lactate Dehydrogenase Total Creatine Kinase CK-MB (CK-2) C-Reactive Protein Total Protein Albumin Troponin T HDL Cholesterol Urine WBC (Auto) Urine Creatinine Urine Total Protein Coronavirus (PCR) Crossmatch 06/12/20 06/12/20 06/12/20 09:20 12:16 17:48 WBC RBC Hgb Hct MCHC RDW Lymph % (Auto) [place] % (Auto) Eos % (Auto) Lymph # [place] # Lymph # (Auto) [place] # (Auto) Seg Neutrophils % Seg Neuts % (Manual) Lymphocytes % (Manual) Seg Neutrophils # Seg Neutrophils # Man Lymphocytes # (Manual) Monocytes % (Manual) Eosinophils % (Manual) Monocytes # (Manual) Eosinophils # (Manual) D-Dimer Heparin Anti-Xa Level ABG pH POC ABG pCO2 POC ABG pO2 ABG pO2 91.1 H ABG HCO3 ABG O2 Saturation ABG Base Excess ABG Hemoglobin ABG Oxyhemoglobin VBG pH Oxyhemoglobin 94.8 L Sodium Potassium Chloride Carbon Dioxide BUN Creatinine Glucose POC Glucose 167 H 182 H Lactic Acid Calcium Ferritin AST Alkaline Phosphatase Magnesium Lactate Dehydrogenase Total Creatine Kinase CK-MB (CK-2) C-Reactive Protein Total Protein Albumin Troponin T HDL Cholesterol Urine WBC (Auto) Urine Creatinine Urine Total Protein Coronavirus (PCR) Crossmatch 06/13/20 06/13/20 06/13/20 00:08 05:37 09:09 WBC RBC Hgb Hct MCHC RDW Lymph % (Auto) [place] % (Auto) Eos % (Auto) Lymph # [place] # Lymph # (Auto) [place] # (Auto) Seg Neutrophils % Seg Neuts % (Manual) Lymphocytes % (Manual) Seg Neutrophils # Seg Neutrophils # Man Lymphocytes # (Manual) Monocytes % (Manual) Eosinophils % (Manual) Monocytes # (Manual) Eosinophils # (Manual) D-Dimer Heparin Anti-Xa Level 0.86 H ABG pH POC ABG pCO2 POC ABG pO2 ABG pO2 ABG HCO3 ABG O2 Saturation ABG Base Excess ABG Hemoglobin ABG Oxyhemoglobin VBG pH Oxyhemoglobin Sodium Potassium Chloride Carbon Dioxide BUN Creatinine Glucose POC Glucose 142 H 119 H Lactic Acid Calcium Ferritin AST Alkaline Phosphatase Magnesium Lactate Dehydrogenase Total Creatine Kinase CK-MB (CK-2) C-Reactive Protein Total Protein Albumin Troponin T HDL Cholesterol Urine WBC (Auto) Urine Creatinine Urine Total Protein Coronavirus (PCR) Crossmatch 06/13/20 06/13/20 06/13/20 12:28 17:55 21:17 WBC RBC Hgb Hct MCHC RDW Lymph % (Auto) [place] % (Auto) Eos % (Auto) Lymph # [place] # Lymph # (Auto) [place] # (Auto) Seg Neutrophils % Seg Neuts % (Manual) Lymphocytes % (Manual) Seg Neutrophils # Seg Neutrophils # Man Lymphocytes # (Manual) Monocytes % (Manual) Eosinophils % (Manual) Monocytes # (Manual) Eosinophils # (Manual) D-Dimer Heparin Anti-Xa Level ABG pH POC ABG pCO2 POC ABG pO2 ABG pO2 ABG HCO3 ABG O2 Saturation ABG Base Excess ABG Hemoglobin ABG Oxyhemoglobin VBG pH Oxyhemoglobin Sodium Potassium Chloride Carbon Dioxide BUN 61 H Creatinine Glucose 131 H POC Glucose 165 H 174 H Lactic Acid Calcium Ferritin AST Alkaline Phosphatase Magnesium Lactate Dehydrogenase Total Creatine Kinase CK-MB (CK-2) C-Reactive Protein Total Protein Albumin Troponin T HDL Cholesterol Urine WBC (Auto) Urine Creatinine Urine Total Protein Coronavirus (PCR) Crossmatch 06/13/20 06/13/20 06/14/20 21:17 23:50 05:34 WBC RBC Hgb Hct MCHC RDW Lymph % (Auto) [place] % (Auto) Eos % (Auto) Lymph # [place] # Lymph # (Auto) [place] # (Auto) Seg Neutrophils % Seg Neuts % (Manual) Lymphocytes % (Manual) Seg Neutrophils # Seg Neutrophils # Man Lymphocytes # (Manual) Monocytes % (Manual) Eosinophils % (Manual) Monocytes # (Manual) Eosinophils # (Manual) D-Dimer Heparin Anti-Xa Level 0.72 H ABG pH POC ABG pCO2 POC ABG pO2 ABG pO2 ABG HCO3 ABG O2 Saturation ABG Base Excess ABG Hemoglobin ABG Oxyhemoglobin VBG pH Oxyhemoglobin Sodium 146 H Potassium Chloride 107.6 H Carbon Dioxide BUN 61 H Creatinine 1.3 H Glucose 135 H POC Glucose 146 H Lactic Acid Calcium Ferritin AST Alkaline Phosphatase Magnesium Lactate Dehydrogenase Total Creatine Kinase CK-MB (CK-2) C-Reactive Protein Total Protein Albumin Troponin T HDL Cholesterol Urine WBC (Auto) Urine Creatinine Urine Total Protein Coronavirus (PCR) Crossmatch 06/14/20 06/14/20 06/14/20 06:11 09:28 11:30 WBC RBC Hgb Hct MCHC RDW Lymph % (Auto) [place] % (Auto) Eos % (Auto) Lymph # [place] # Lymph # (Auto) [place] # (Auto) Seg Neutrophils % Seg Neuts % (Manual) Lymphocytes % (Manual) Seg Neutrophils # Seg Neutrophils # Man Lymphocytes # (Manual) Monocytes % (Manual) Eosinophils % (Manual) Monocytes # (Manual) Eosinophils # (Manual) D-Dimer Heparin Anti-Xa Level 0.90 H ABG pH POC ABG pCO2 POC ABG pO2 ABG pO2 ABG HCO3 ABG O2 Saturation ABG Base Excess ABG Hemoglobin ABG Oxyhemoglobin VBG pH Oxyhemoglobin Sodium Potassium Chloride Carbon Dioxide BUN Creatinine Glucose POC Glucose 141 H 186 H Lactic Acid Calcium Ferritin AST Alkaline Phosphatase Magnesium Lactate Dehydrogenase Total Creatine Kinase CK-MB (CK-2) C-Reactive Protein Total Protein Albumin Troponin T HDL Cholesterol Urine WBC (Auto) Urine Creatinine Urine Total Protein Coronavirus (PCR) Crossmatch 06/14/20 06/14/20 06/14/20 16:07 18:16 23:51 WBC RBC Hgb Hct MCHC RDW Lymph % (Auto) [place] % (Auto) Eos % (Auto) Lymph # [place] # Lymph # (Auto) [place] # (Auto) Seg Neutrophils % Seg Neuts % (Manual) Lymphocytes % (Manual) Seg Neutrophils # Seg Neutrophils # Man Lymphocytes # (Manual) Monocytes % (Manual) Eosinophils % (Manual) Monocytes # (Manual) Eosinophils # (Manual) D-Dimer Heparin Anti-Xa Level 0.82 H ABG pH POC ABG pCO2 POC ABG pO2 ABG pO2 ABG HCO3 ABG O2 Saturation ABG Base Excess ABG Hemoglobin ABG Oxyhemoglobin VBG pH Oxyhemoglobin Sodium Potassium Chloride Carbon Dioxide BUN Creatinine Glucose POC Glucose 106 H 154 H Lactic Acid Calcium Ferritin AST Alkaline Phosphatase Magnesium Lactate Dehydrogenase Total Creatine Kinase CK-MB (CK-2) C-Reactive Protein Total Protein Albumin Troponin T HDL Cholesterol Urine WBC (Auto) Urine Creatinine Urine Total Protein Coronavirus (PCR) Crossmatch 06/15/20 06/15/20 06/15/20 04:24 04:24 05:59 WBC RBC 2.75 L Hgb 7.9 L Hct 24.0 L MCHC RDW 16.4 H Lymph % (Auto) 12.9 L [place] % (Auto) 8.7 H Eos % (Auto) 4.6 H Lymph # 1.1 L [place] # Lymph # (Auto) [place] # (Auto) Seg Neutrophils % 73.2 H Seg Neuts % (Manual) Lymphocytes % (Manual) Seg Neutrophils # Seg Neutrophils # Man Lymphocytes # (Manual) Monocytes % (Manual) Eosinophils % (Manual) Monocytes # (Manual) Eosinophils # (Manual) D-Dimer Heparin Anti-Xa Level ABG pH POC ABG pCO2 POC ABG pO2 ABG pO2 ABG HCO3 ABG O2 Saturation ABG Base Excess ABG Hemoglobin ABG Oxyhemoglobin VBG pH Oxyhemoglobin Sodium Potassium 3.4 L Chloride Carbon Dioxide BUN 55 H Creatinine 1.3 H Glucose 142 H POC Glucose 131 H Lactic Acid Calcium Ferritin AST Alkaline Phosphatase Magnesium Lactate Dehydrogenase Total Creatine Kinase CK-MB (CK-2) C-Reactive Protein Total Protein Albumin Troponin T HDL Cholesterol Urine WBC (Auto) Urine Creatinine Urine Total Protein Coronavirus (PCR) Crossmatch 06/15/20 06/15/20 06/16/20 12:33 17:07 00:22 WBC RBC Hgb Hct MCHC RDW Lymph % (Auto) [place] % (Auto) Eos % (Auto) Lymph # [place] # Lymph # (Auto) [place] # (Auto) Seg Neutrophils % Seg Neuts % (Manual) Lymphocytes % (Manual) Seg Neutrophils # Seg Neutrophils # Man Lymphocytes # (Manual) Monocytes % (Manual) Eosinophils % (Manual) Monocytes # (Manual) Eosinophils # (Manual) D-Dimer Heparin Anti-Xa Level 0.21 L ABG pH POC ABG pCO2 POC ABG pO2 ABG pO2 ABG HCO3 ABG O2 Saturation ABG Base Excess ABG Hemoglobin ABG Oxyhemoglobin VBG pH Oxyhemoglobin Sodium Potassium Chloride Carbon Dioxide BUN Creatinine Glucose POC Glucose 180 H 185 H Lactic Acid Calcium Ferritin AST Alkaline Phosphatase Magnesium Lactate Dehydrogenase Total Creatine Kinase CK-MB (CK-2) C-Reactive Protein Total Protein Albumin Troponin T HDL Cholesterol Urine WBC (Auto) Urine Creatinine Urine Total Protein Coronavirus (PCR) Crossmatch 06/16/20 06/16/20 06/16/20 01:45 08:06 09:15 WBC RBC Hgb Hct MCHC RDW Lymph % (Auto) [place] % (Auto) Eos % (Auto) Lymph # [place] # Lymph # (Auto) [place] # (Auto) Seg Neutrophils % Seg Neuts % (Manual) Lymphocytes % (Manual) Seg Neutrophils # Seg Neutrophils # Man Lymphocytes # (Manual) Monocytes % (Manual) Eosinophils % (Manual) Monocytes # (Manual) Eosinophils # (Manual) D-Dimer Heparin Anti-Xa Level ABG pH POC ABG pCO2 POC ABG pO2 ABG pO2 ABG HCO3 ABG O2 Saturation ABG Base Excess ABG Hemoglobin ABG Oxyhemoglobin VBG pH Oxyhemoglobin Sodium Potassium Chloride Carbon Dioxide BUN 49 H Creatinine Glucose 154 H POC Glucose 140 H 171 H Lactic Acid Calcium Ferritin AST Alkaline Phosphatase Magnesium Lactate Dehydrogenase Total Creatine Kinase CK-MB (CK-2) C-Reactive Protein Total Protein Albumin Troponin T HDL Cholesterol Urine WBC (Auto) Urine Creatinine Urine Total Protein Coronavirus (PCR) Crossmatch 06/16/20 06/16/20 06/16/20 10:46 12:33 17:54 WBC RBC Hgb Hct MCHC RDW Lymph % (Auto) [place] % (Auto) Eos % (Auto) Lymph # [place] # Lymph # (Auto) [place] # (Auto) Seg Neutrophils % Seg Neuts % (Manual) Lymphocytes % (Manual) Seg Neutrophils # Seg Neutrophils # Man Lymphocytes # (Manual) Monocytes % (Manual) Eosinophils % (Manual) Monocytes # (Manual) Eosinophils # (Manual) D-Dimer Heparin Anti-Xa Level 0.12 L ABG pH POC ABG pCO2 POC ABG pO2 ABG pO2 ABG HCO3 ABG O2 Saturation ABG Base Excess ABG Hemoglobin ABG Oxyhemoglobin VBG pH Oxyhemoglobin Sodium Potassium Chloride Carbon Dioxide BUN Creatinine Glucose POC Glucose 166 H 151 H Lactic Acid Calcium Ferritin AST Alkaline Phosphatase Magnesium Lactate Dehydrogenase Total Creatine Kinase CK-MB (CK-2) C-Reactive Protein Total Protein Albumin Troponin T HDL Cholesterol Urine WBC (Auto) Urine Creatinine Urine Total Protein Coronavirus (PCR) Crossmatch 06/16/20 06/17/20 06/17/20 18:47 00:00 02:19 WBC RBC Hgb Hct MCHC RDW Lymph % (Auto) [place] % (Auto) Eos % (Auto) Lymph # [place] # Lymph # (Auto) [place] # (Auto) Seg Neutrophils % Seg Neuts % (Manual) Lymphocytes % (Manual) Seg Neutrophils # Seg Neutrophils # Man Lymphocytes # (Manual) Monocytes % (Manual) Eosinophils % (Manual) Monocytes # (Manual) Eosinophils # (Manual) D-Dimer Heparin Anti-Xa Level 0.73 H 0.77 H ABG pH POC ABG pCO2 POC ABG pO2 ABG pO2 ABG HCO3 ABG O2 Saturation ABG Base Excess ABG Hemoglobin ABG Oxyhemoglobin VBG pH Oxyhemoglobin Sodium Potassium Chloride Carbon Dioxide BUN Creatinine Glucose POC Glucose 139 H Lactic Acid Calcium Ferritin AST Alkaline Phosphatase Magnesium Lactate Dehydrogenase Total Creatine Kinase CK-MB (CK-2) C-Reactive Protein Total Protein Albumin Troponin T HDL Cholesterol Urine WBC (Auto) Urine Creatinine Urine Total Protein Coronavirus (PCR) Crossmatch 06/17/20 06/17/20 06/17/20 06:07 11:42 16:43 WBC RBC Hgb Hct MCHC RDW Lymph % (Auto) [place] % (Auto) Eos % (Auto) Lymph # [place] # Lymph # (Auto) [place] # (Auto) Seg Neutrophils % Seg Neuts % (Manual) Lymphocytes % (Manual) Seg Neutrophils # Seg Neutrophils # Man Lymphocytes # (Manual) Monocytes % (Manual) Eosinophils % (Manual) Monocytes # (Manual) Eosinophils # (Manual) D-Dimer Heparin Anti-Xa Level 0.73 H ABG pH POC ABG pCO2 POC ABG pO2 ABG pO2 ABG HCO3 ABG O2 Saturation ABG Base Excess ABG Hemoglobin ABG Oxyhemoglobin VBG pH Oxyhemoglobin Sodium Potassium Chloride Carbon Dioxide BUN Creatinine Glucose POC Glucose 169 H 169 H Lactic Acid Calcium Ferritin AST Alkaline Phosphatase Magnesium Lactate Dehydrogenase Total Creatine Kinase CK-MB (CK-2) C-Reactive Protein Total Protein Albumin Troponin T HDL Cholesterol Urine WBC (Auto) Urine Creatinine Urine Total Protein Coronavirus (PCR) Crossmatch 06/17/20 06/17/20 06/17/20 18:18 23:08 23:16 WBC RBC Hgb Hct MCHC RDW Lymph % (Auto) [place] % (Auto) Eos % (Auto) Lymph # [place] # Lymph # (Auto) [place] # (Auto) Seg Neutrophils % Seg Neuts % (Manual) Lymphocytes % (Manual) Seg Neutrophils # Seg Neutrophils # Man Lymphocytes # (Manual) Monocytes % (Manual) Eosinophils % (Manual) Monocytes # (Manual) Eosinophils # (Manual) D-Dimer Heparin Anti-Xa Level 0.71 H ABG pH POC ABG pCO2 POC ABG pO2 ABG pO2 ABG HCO3 ABG O2 Saturation ABG Base Excess ABG Hemoglobin ABG Oxyhemoglobin VBG pH Oxyhemoglobin Sodium Potassium Chloride Carbon Dioxide BUN Creatinine Glucose POC Glucose 159 H 134 H Lactic Acid Calcium Ferritin AST Alkaline Phosphatase Magnesium Lactate Dehydrogenase Total Creatine Kinase CK-MB (CK-2) C-Reactive Protein Total Protein Albumin Troponin T HDL Cholesterol Urine WBC (Auto) Urine Creatinine Urine Total Protein Coronavirus (PCR) Crossmatch 06/18/20 06/18/20 06/18/20 04:42 05:52 11:50 WBC RBC Hgb Hct MCHC RDW Lymph % (Auto) [place] % (Auto) Eos % (Auto) Lymph # [place] # Lymph # (Auto) [place] # (Auto) Seg Neutrophils % Seg Neuts % (Manual) Lymphocytes % (Manual) Seg Neutrophils # Seg Neutrophils # Man Lymphocytes # (Manual) Monocytes % (Manual) Eosinophils % (Manual) Monocytes # (Manual) Eosinophils # (Manual) D-Dimer Heparin Anti-Xa Level ABG pH POC ABG pCO2 POC ABG pO2 ABG pO2 ABG HCO3 ABG O2 Saturation ABG Base Excess ABG Hemoglobin ABG Oxyhemoglobin VBG pH Oxyhemoglobin Sodium Potassium Chloride Carbon Dioxide BUN 44 H Creatinine Glucose 115 H POC Glucose 171 H 167 H Lactic Acid Calcium Ferritin AST Alkaline Phosphatase Magnesium Lactate Dehydrogenase Total Creatine Kinase CK-MB (CK-2) C-Reactive Protein Total Protein Albumin Troponin T HDL Cholesterol Urine WBC (Auto) Urine Creatinine Urine Total Protein Coronavirus (PCR) Crossmatch 06/18/20 06/19/20 06/19/20 23:46 05:48 07:52 WBC RBC Hgb Hct MCHC RDW Lymph % (Auto) [place] % (Auto) Eos % (Auto) Lymph # [place] # Lymph # (Auto) [place] # (Auto) Seg Neutrophils % Seg Neuts % (Manual) Lymphocytes % (Manual) Seg Neutrophils # Seg Neutrophils # Man Lymphocytes # (Manual) Monocytes % (Manual) Eosinophils % (Manual) Monocytes # (Manual) Eosinophils # (Manual) D-Dimer Heparin Anti-Xa Level ABG pH POC ABG pCO2 POC ABG pO2 ABG pO2 ABG HCO3 ABG O2 Saturation ABG Base Excess ABG Hemoglobin ABG Oxyhemoglobin VBG pH Oxyhemoglobin Sodium Potassium Chloride Carbon Dioxide BUN Creatinine Glucose POC Glucose 130 H 207 H 175 H Lactic Acid Calcium Ferritin AST Alkaline Phosphatase Magnesium Lactate Dehydrogenase Total Creatine Kinase CK-MB (CK-2) C-Reactive Protein Total Protein Albumin Troponin T HDL Cholesterol Urine WBC (Auto) Urine Creatinine Urine Total Protein Coronavirus (PCR) Crossmatch 06/19/20 06/19/20 06/20/20 11:42 22:54 05:17 WBC RBC Hgb Hct MCHC RDW Lymph % (Auto) [place] % (Auto) Eos % (Auto) Lymph # [place] # Lymph # (Auto) [place] # (Auto) Seg Neutrophils % Seg Neuts % (Manual) Lymphocytes % (Manual) Seg Neutrophils # Seg Neutrophils # Man Lymphocytes # (Manual) Monocytes % (Manual) Eosinophils % (Manual) Monocytes # (Manual) Eosinophils # (Manual) D-Dimer Heparin Anti-Xa Level ABG pH POC ABG pCO2 POC ABG pO2 ABG pO2 ABG HCO3 ABG O2 Saturation ABG Base Excess ABG Hemoglobin ABG Oxyhemoglobin VBG pH Oxyhemoglobin Sodium Potassium Chloride Carbon Dioxide BUN Creatinine Glucose POC Glucose 166 H 135 H 218 H Lactic Acid Calcium Ferritin AST Alkaline Phosphatase Magnesium Lactate Dehydrogenase Total Creatine Kinase CK-MB (CK-2) C-Reactive Protein Total Protein Albumin Troponin T HDL Cholesterol Urine WBC (Auto) Urine Creatinine Urine Total Protein Coronavirus (PCR) Crossmatch 06/20/20 06/20/20 06/20/20 12:04 16:25 16:35 WBC RBC Hgb Hct MCHC RDW Lymph % (Auto) [place] % (Auto) Eos % (Auto) Lymph # [place] # Lymph # (Auto) [place] # (Auto) Seg Neutrophils % Seg Neuts % (Manual) Lymphocytes % (Manual) Seg Neutrophils # Seg Neutrophils # Man Lymphocytes # (Manual) Monocytes % (Manual) Eosinophils % (Manual) Monocytes # (Manual) Eosinophils # (Manual) D-Dimer Heparin Anti-Xa Level ABG pH POC ABG pCO2 POC ABG pO2 ABG pO2 59.6 L ABG HCO3 28.7 H ABG O2 Saturation 93.5 L ABG Base Excess 3.4 H ABG Hemoglobin 7.2 L ABG Oxyhemoglobin VBG pH Oxyhemoglobin 91.3 L Sodium Potassium Chloride Carbon Dioxide BUN Creatinine Glucose POC Glucose 194 H 137 H Lactic Acid Calcium Ferritin AST Alkaline Phosphatase Magnesium Lactate Dehydrogenase Total Creatine Kinase CK-MB (CK-2) C-Reactive Protein Total Protein Albumin Troponin T HDL Cholesterol Urine WBC (Auto) Urine Creatinine Urine Total Protein Coronavirus (PCR) Crossmatch 06/20/20 06/21/20 06/21/20 23:59 06:25 12:01 WBC RBC Hgb Hct MCHC RDW Lymph % (Auto) [place] % (Auto) Eos % (Auto) Lymph # [place] # Lymph # (Auto) [place] # (Auto) Seg Neutrophils % Seg Neuts % (Manual) Lymphocytes % (Manual) Seg Neutrophils # Seg Neutrophils # Man Lymphocytes # (Manual) Monocytes % (Manual) Eosinophils % (Manual) Monocytes # (Manual) Eosinophils # (Manual) D-Dimer Heparin Anti-Xa Level ABG pH POC ABG pCO2 POC ABG pO2 ABG pO2 ABG HCO3 ABG O2 Saturation ABG Base Excess ABG Hemoglobin ABG Oxyhemoglobin VBG pH Oxyhemoglobin Sodium Potassium Chloride Carbon Dioxide BUN Creatinine Glucose POC Glucose 156 H 177 H 195 H Lactic Acid Calcium Ferritin AST Alkaline Phosphatase Magnesium Lactate Dehydrogenase Total Creatine Kinase CK-MB (CK-2) C-Reactive Protein Total Protein Albumin Troponin T HDL Cholesterol Urine WBC (Auto) Urine Creatinine Urine Total Protein Coronavirus (PCR) Crossmatch 06/21/20 06/21/20 06/22/20 17:04 21:51 05:06 WBC RBC Hgb Hct MCHC RDW Lymph % (Auto) [place] % (Auto) Eos % (Auto) Lymph # [place] # Lymph # (Auto) [place] # (Auto) Seg Neutrophils % Seg Neuts % (Manual) Lymphocytes % (Manual) Seg Neutrophils # Seg Neutrophils # Man Lymphocytes # (Manual) Monocytes % (Manual) Eosinophils % (Manual) Monocytes # (Manual) Eosinophils # (Manual) D-Dimer Heparin Anti-Xa Level ABG pH POC ABG pCO2 POC ABG pO2 ABG pO2 ABG HCO3 ABG O2 Saturation ABG Base Excess ABG Hemoglobin ABG Oxyhemoglobin VBG pH Oxyhemoglobin Sodium Potassium Chloride Carbon Dioxide BUN Creatinine Glucose POC Glucose 156 H 154 H 167 H Lactic Acid Calcium Ferritin AST Alkaline Phosphatase Magnesium Lactate Dehydrogenase Total Creatine Kinase CK-MB (CK-2) C-Reactive Protein Total Protein Albumin Troponin T HDL Cholesterol Urine WBC (Auto) Urine Creatinine Urine Total Protein Coronavirus (PCR) Crossmatch 06/22/20 06/22/20 06/22/20 11:20 15:27 16:58 WBC RBC Hgb Hct MCHC RDW Lymph % (Auto) [place] % (Auto) Eos % (Auto) Lymph # [place] # Lymph # (Auto) [place] # (Auto) Seg Neutrophils % Seg Neuts % (Manual) Lymphocytes % (Manual) Seg Neutrophils # Seg Neutrophils # Man Lymphocytes # (Manual) Monocytes % (Manual) Eosinophils % (Manual) Monocytes # (Manual) Eosinophils # (Manual) D-Dimer Heparin Anti-Xa Level ABG pH 7.206 L POC ABG pCO2 79.9 H POC ABG pO2 ABG pO2 ABG HCO3 ABG O2 Saturation ABG Base Excess ABG Hemoglobin 8.3 L ABG Oxyhemoglobin VBG pH Oxyhemoglobin Sodium Potassium Chloride Carbon Dioxide BUN Creatinine Glucose POC Glucose 181 H 230 H Lactic Acid Calcium Ferritin AST Alkaline Phosphatase Magnesium Lactate Dehydrogenase Total Creatine Kinase CK-MB (CK-2) C-Reactive Protein Total Protein Albumin Troponin T HDL Cholesterol Urine WBC (Auto) Urine Creatinine Urine Total Protein Coronavirus (PCR) Crossmatch 06/22/20 06/23/20 06/23/20 22:26 05:49 05:49 WBC RBC 2.58 L Hgb 7.4 L Hct 23.2 L MCHC RDW 17.0 H Lymph % (Auto) [place] % (Auto) 11.2 H Eos % (Auto) Lymph # 1.0 L [place] # Lymph # (Auto) [place] # (Auto) Seg Neutrophils % Seg Neuts % (Manual) Lymphocytes % (Manual) Seg Neutrophils # Seg Neutrophils # Man Lymphocytes # (Manual) Monocytes % (Manual) Eosinophils % (Manual) Monocytes # (Manual) Eosinophils # (Manual) D-Dimer Heparin Anti-Xa Level ABG pH POC ABG pCO2 POC ABG pO2 ABG pO2 ABG HCO3 ABG O2 Saturation ABG Base Excess ABG Hemoglobin ABG Oxyhemoglobin VBG pH Oxyhemoglobin Sodium Potassium Chloride Carbon Dioxide BUN 68 H Creatinine 2.4 H Glucose 198 H POC Glucose 195 H Lactic Acid Calcium Ferritin AST Alkaline Phosphatase Magnesium Lactate Dehydrogenase Total Creatine Kinase CK-MB (CK-2) C-Reactive Protein Total Protein Albumin Troponin T HDL Cholesterol Urine WBC (Auto) Urine Creatinine Urine Total Protein Coronavirus (PCR) Crossmatch 06/23/20 06/23/20 06/23/20 05:50 12:29 12:34 WBC RBC Hgb Hct MCHC RDW Lymph % (Auto) [place] % (Auto) Eos % (Auto) Lymph # [place] # Lymph # (Auto) [place] # (Auto) Seg Neutrophils % Seg Neuts % (Manual) Lymphocytes % (Manual) Seg Neutrophils # Seg Neutrophils # Man Lymphocytes # (Manual) Monocytes % (Manual) Eosinophils % (Manual) Monocytes # (Manual) Eosinophils # (Manual) D-Dimer Heparin Anti-Xa Level ABG pH POC ABG pCO2 54.7 H POC ABG pO2 68.8 L ABG pO2 ABG HCO3 ABG O2 Saturation ABG Base Excess ABG Hemoglobin 9.8 L ABG Oxyhemoglobin 92.6 L VBG pH Oxyhemoglobin Sodium Potassium Chloride Carbon Dioxide BUN Creatinine Glucose POC Glucose 202 H 218 H Lactic Acid Calcium Ferritin AST Alkaline Phosphatase Magnesium Lactate Dehydrogenase Total Creatine Kinase CK-MB (CK-2) C-Reactive Protein Total Protein Albumin Troponin T HDL Cholesterol Urine WBC (Auto) Urine Creatinine Urine Total Protein Coronavirus (PCR) Crossmatch 06/23/20 06/23/20 06/24/20 16:02 22:22 01:06 WBC RBC Hgb Hct MCHC RDW Lymph % (Auto) [place] % (Auto) Eos % (Auto) Lymph # [place] # Lymph # (Auto) [place] # (Auto) Seg Neutrophils % Seg Neuts % (Manual) Lymphocytes % (Manual) Seg Neutrophils # Seg Neutrophils # Man Lymphocytes # (Manual) Monocytes % (Manual) Eosinophils % (Manual) Monocytes # (Manual) Eosinophils # (Manual) D-Dimer Heparin Anti-Xa Level ABG pH POC ABG pCO2 POC ABG pO2 ABG pO2 ABG HCO3 ABG O2 Saturation ABG Base Excess ABG Hemoglobin ABG Oxyhemoglobin VBG pH Oxyhemoglobin Sodium Potassium Chloride Carbon Dioxide BUN Creatinine Glucose POC Glucose 190 H 166 H 171 H Lactic Acid Calcium Ferritin AST Alkaline Phosphatase Magnesium Lactate Dehydrogenase Total Creatine Kinase CK-MB (CK-2) C-Reactive Protein Total Protein Albumin Troponin T HDL Cholesterol Urine WBC (Auto) Urine Creatinine Urine Total Protein Coronavirus (PCR) Crossmatch 06/24/20 06/24/20 06/24/20 04:48 05:35 11:48 WBC RBC Hgb Hct MCHC RDW Lymph % (Auto) [place] % (Auto) Eos % (Auto) Lymph # [place] # Lymph # (Auto) [place] # (Auto) Seg Neutrophils % Seg Neuts % (Manual) Lymphocytes % (Manual) Seg Neutrophils # Seg Neutrophils # Man Lymphocytes # (Manual) Monocytes % (Manual) Eosinophils % (Manual) Monocytes # (Manual) Eosinophils # (Manual) D-Dimer Heparin Anti-Xa Level ABG pH POC ABG pCO2 POC ABG pO2 ABG pO2 ABG HCO3 ABG O2 Saturation ABG Base Excess ABG Hemoglobin ABG Oxyhemoglobin VBG pH Oxyhemoglobin Sodium Potassium Chloride Carbon Dioxide BUN 75 H Creatinine 2.6 H Glucose 179 H POC Glucose 172 H 153 H Lactic Acid Calcium Ferritin AST Alkaline Phosphatase Magnesium Lactate Dehydrogenase Total Creatine Kinase CK-MB (CK-2) C-Reactive Protein Total Protein Albumin Troponin T HDL Cholesterol Urine WBC (Auto) Urine Creatinine Urine Total Protein Coronavirus (PCR) Crossmatch 06/24/20 06/24/20 06/25/20 16:38 21:52 12:00 WBC RBC Hgb Hct MCHC RDW Lymph % (Auto) [place] % (Auto) Eos % (Auto) Lymph # [place] # Lymph # (Auto) [place] # (Auto) Seg Neutrophils % Seg Neuts % (Manual) Lymphocytes % (Manual) Seg Neutrophils # Seg Neutrophils # Man Lymphocytes # (Manual) Monocytes % (Manual) Eosinophils % (Manual) Monocytes # (Manual) Eosinophils # (Manual) D-Dimer Heparin Anti-Xa Level ABG pH POC ABG pCO2 POC ABG pO2 ABG pO2 ABG HCO3 ABG O2 Saturation ABG Base Excess ABG Hemoglobin ABG Oxyhemoglobin VBG pH Oxyhemoglobin Sodium Potassium Chloride Carbon Dioxide BUN Creatinine Glucose POC Glucose 123 H 115 H 203 H Lactic Acid Calcium Ferritin AST Alkaline Phosphatase Magnesium Lactate Dehydrogenase Total Creatine Kinase CK-MB (CK-2) C-Reactive Protein Total Protein Albumin Troponin T HDL Cholesterol Urine WBC (Auto) Urine Creatinine Urine Total Protein Coronavirus (PCR) Crossmatch 06/25/20 06/25/20 06/25/20 15:43 16:37 23:02 WBC RBC Hgb Hct MCHC RDW Lymph % (Auto) [place] % (Auto) Eos % (Auto) Lymph # [place] # Lymph # (Auto) [place] # (Auto) Seg Neutrophils % Seg Neuts % (Manual) Lymphocytes % (Manual) Seg Neutrophils # Seg Neutrophils # Man Lymphocytes # (Manual) Monocytes % (Manual) Eosinophils % (Manual) Monocytes # (Manual) Eosinophils # (Manual) D-Dimer Heparin Anti-Xa Level ABG pH POC ABG pCO2 POC ABG pO2 ABG pO2 ABG HCO3 ABG O2 Saturation ABG Base Excess ABG Hemoglobin ABG Oxyhemoglobin VBG pH Oxyhemoglobin Sodium Potassium Chloride Carbon Dioxide BUN 71 H Creatinine 1.8 H Glucose 170 H POC Glucose 191 H 126 H Lactic Acid Calcium 8.2 L Ferritin AST Alkaline Phosphatase Magnesium Lactate Dehydrogenase Total Creatine Kinase CK-MB (CK-2) C-Reactive Protein Total Protein Albumin Troponin T HDL Cholesterol Urine WBC (Auto) Urine Creatinine Urine Total Protein Coronavirus (PCR) Crossmatch 06/26/20 06/26/20 06/26/20 06:34 06:34 09:27 WBC RBC 2.41 L Hgb 6.9 L Hct 21.5 L MCHC RDW 16.7 H Lymph % (Auto) 10.9 L [place] % (Auto) 9.6 H Eos % (Auto) Lymph # 0.7 L [place] # Lymph # (Auto) [place] # (Auto) Seg Neutrophils % 75.4 H Seg Neuts % (Manual) Lymphocytes % (Manual) Seg Neutrophils # Seg Neutrophils # Man Lymphocytes # (Manual) Monocytes % (Manual) Eosinophils % (Manual) Monocytes # (Manual) Eosinophils # (Manual) D-Dimer Heparin Anti-Xa Level ABG pH POC ABG pCO2 POC ABG pO2 ABG pO2 ABG HCO3 ABG O2 Saturation ABG Base Excess ABG Hemoglobin ABG Oxyhemoglobin VBG pH Oxyhemoglobin Sodium Potassium Chloride Carbon Dioxide BUN 77 H Creatinine 1.9 H Glucose 190 H POC Glucose Lactic Acid Calcium Ferritin AST Alkaline Phosphatase Magnesium Lactate Dehydrogenase Total Creatine Kinase CK-MB (CK-2) C-Reactive Protein Total Protein Albumin Troponin T HDL Cholesterol Urine WBC (Auto) Urine Creatinine Urine Total Protein Coronavirus (PCR) Crossmatch See Detail 06/26/20 06/26/20 06/26/20 12:15 16:28 17:28 WBC RBC Hgb Hct MCHC RDW Lymph % (Auto) [place] % (Auto) Eos % (Auto) Lymph # [place] # Lymph # (Auto) [place] # (Auto) Seg Neutrophils % Seg Neuts % (Manual) Lymphocytes % (Manual) Seg Neutrophils # Seg Neutrophils # Man Lymphocytes # (Manual) Monocytes % (Manual) Eosinophils % (Manual) Monocytes # (Manual) Eosinophils # (Manual) D-Dimer Heparin Anti-Xa Level ABG pH POC ABG pCO2 POC ABG pO2 ABG pO2 ABG HCO3 ABG O2 Saturation ABG Base Excess ABG Hemoglobin ABG Oxyhemoglobin VBG pH Oxyhemoglobin Sodium Potassium Chloride Carbon Dioxide BUN Creatinine Glucose POC Glucose 187 H 149 H 189 H Lactic Acid Calcium Ferritin AST Alkaline Phosphatase Magnesium Lactate Dehydrogenase Total Creatine Kinase CK-MB (CK-2) C-Reactive Protein Total Protein Albumin Troponin T HDL Cholesterol Urine WBC (Auto) Urine Creatinine Urine Total Protein Coronavirus (PCR) Crossmatch 06/26/20 06/26/2006/26/20 18:30 18:30 18:30 WBC RBC 2.87 L Hgb 8.2 L Hct 25.9 L MCHC RDW 17.8 H Lymph % (Auto) [place] % (Auto) Eos % (Auto) Lymph # [place] # Lymph # (Auto) [place] # (Auto) Seg Neutrophils % Seg Neuts % (Manual) 83.0 H Lymphocytes % (Manual) 8.0 L Seg Neutrophils # Seg Neutrophils # Man Lymphocytes # (Manual) 0.6 L Monocytes % (Manual) Eosinophils % (Manual) Monocytes # (Manual) Eosinophils # (Manual) D-Dimer Heparin Anti-Xa Level ABG pH POC ABG pCO2 POC ABG pO2 ABG pO2 ABG HCO3 ABG O2 Saturation ABG Base Excess ABG Hemoglobin ABG Oxyhemoglobin VBG pH Oxyhemoglobin Sodium Potassium Chloride Carbon Dioxide BUN 80 H Creatinine 2.1 H Glucose 260 H POC Glucose Lactic Acid 4.30 H* Calcium 8.3 L Ferritin AST Alkaline Phosphatase Magnesium Lactate Dehydrogenase Total Creatine Kinase CK-MB (CK-2) C-Reactive Protein Total Protein Albumin Troponin T HDL Cholesterol Urine WBC (Auto) Urine Creatinine Urine Total Protein Coronavirus (PCR) Crossmatch 06/26/20 06/27/20 06/27/20 18:50 01:00 04:29 WBC RBC Hgb Hct MCHC RDW Lymph % (Auto) [place] % (Auto) Eos % (Auto) Lymph # [place] # Lymph # (Auto) [place] # (Auto) Seg Neutrophils % Seg Neuts % (Manual) Lymphocytes % (Manual) Seg Neutrophils # Seg Neutrophils # Man Lymphocytes # (Manual) Monocytes % (Manual) Eosinophils % (Manual) Monocytes # (Manual) Eosinophils # (Manual) D-Dimer Heparin Anti-Xa Level ABG pH 7.296 L POC ABG pCO2 POC ABG pO2 ABG pO2 116.5 H 200.5 H ABG HCO3 28.4 H ABG O2 Saturation 99.3 H ABG Base Excess 3.7 H ABG Hemoglobin 5.6 L ABG Oxyhemoglobin VBG pH Oxyhemoglobin Sodium Potassium Chloride Carbon Dioxide BUN Creatinine Glucose POC Glucose 123 H Lactic Acid Calcium Ferritin AST Alkaline Phosphatase Magnesium Lactate Dehydrogenase Total Creatine Kinase CK-MB (CK-2) C-Reactive Protein Total Protein Albumin Troponin T HDL Cholesterol Urine WBC (Auto) Urine Creatinine Urine Total Protein Coronavirus (PCR) Crossmatch 06/27/20 06/27/20 06/27/20 05:00 05:00 05:00 WBC RBC 2.75 L Hgb 7.9 L Hct 24.3 L MCHC RDW 17.1 H Lymph % (Auto) 8.5 L [place] % (Auto) 12.6 H Eos % (Auto) Lymph # 0.7 L [place] # 1.0 H Lymph # (Auto) [place] # (Auto) Seg Neutrophils % 77.5 H Seg Neuts % (Manual) Lymphocytes % (Manual) Seg Neutrophils # Seg Neutrophils # Man Lymphocytes # (Manual) Monocytes % (Manual) Eosinophils % (Manual) Monocytes # (Manual) Eosinophils # (Manual) D-Dimer Heparin Anti-Xa Level ABG pH POC ABG pCO2 POC ABG pO2 ABG pO2 ABG HCO3 ABG O2 Saturation ABG Base Excess ABG Hemoglobin ABG Oxyhemoglobin VBG pH Oxyhemoglobin Sodium Potassium Chloride Carbon Dioxide BUN 80 H Creatinine 2.0 H Glucose 129 H POC Glucose Lactic Acid 0.60 L Calcium 7.9 L Ferritin AST Alkaline Phosphatase Magnesium Lactate Dehydrogenase Total Creatine Kinase CK-MB (CK-2) C-Reactive Protein Total Protein Albumin Troponin T HDL Cholesterol Urine WBC (Auto) Urine Creatinine Urine Total Protein Coronavirus (PCR) Crossmatch 06/27/20 06/27/20 06/27/20 05:23 13:46 17:25 WBC RBC Hgb Hct MCHC RDW Lymph % (Auto) [place] % (Auto) Eos % (Auto) Lymph # [place] # Lymph # (Auto) [place] # (Auto) Seg Neutrophils % Seg Neuts % (Manual) Lymphocytes % (Manual) Seg Neutrophils # Seg Neutrophils # Man Lymphocytes # (Manual) Monocytes % (Manual) Eosinophils % (Manual) Monocytes # (Manual) Eosinophils # (Manual) D-Dimer Heparin Anti-Xa Level ABG pH POC ABG pCO2 POC ABG pO2 ABG pO2 ABG HCO3 ABG O2 Saturation ABG Base Excess ABG Hemoglobin ABG Oxyhemoglobin VBG pH Oxyhemoglobin Sodium Potassium Chloride Carbon Dioxide BUN Creatinine Glucose POC Glucose 109 H 158 H 162 H Lactic Acid Calcium Ferritin AST Alkaline Phosphatase Magnesium Lactate Dehydrogenase Total Creatine Kinase CK-MB (CK-2) C-Reactive Protein Total Protein Albumin Troponin T HDL Cholesterol Urine WBC (Auto) Urine Creatinine Urine Total Protein Coronavirus (PCR) Crossmatch 06/27/20 06/27/20 06/28/20 18:43 23:46 04:05 WBC RBC Hgb 7.7 L Hct 22.1 L MCHC RDW Lymph % (Auto) [place] % (Auto) Eos % (Auto) Lymph # [place] # Lymph # (Auto) [place] # (Auto) Seg Neutrophils % Seg Neuts % (Manual) Lymphocytes % (Manual) Seg Neutrophils # Seg Neutrophils # Man Lymphocytes # (Manual) Monocytes % (Manual) Eosinophils % (Manual) Monocytes # (Manual) Eosinophils # (Manual) D-Dimer Heparin Anti-Xa Level ABG pH POC ABG pCO2 POC ABG pO2 ABG pO2 102.7 H ABG HCO3 28.7 H ABG O2 Saturation ABG Base Excess 3.7 H ABG Hemoglobin ABG Oxyhemoglobin VBG pH Oxyhemoglobin Sodium Potassium Chloride Carbon Dioxide BUN Creatinine Glucose POC Glucose 142 H Lactic Acid Calcium Ferritin AST Alkaline Phosphatase Magnesium Lactate Dehydrogenase Total Creatine Kinase CK-MB (CK-2) C-Reactive Protein Total Protein Albumin Troponin T HDL Cholesterol Urine WBC (Auto) Urine Creatinine Urine Total Protein Coronavirus (PCR) Crossmatch 06/28/20 06/28/20 06/28/20 09:47 09:47 12:02 WBC RBC 2.53 L Hgb 7.4 L Hct 22.2 L MCHC RDW 16.8 H Lymph % (Auto) [place] % (Auto) 13.5 H Eos % (Auto) Lymph # 1.1 L [place] # 1.0 H Lymph # (Auto) [place] # (Auto) Seg Neutrophils % Seg Neuts % (Manual) Lymphocytes % (Manual) Seg Neutrophils # Seg Neutrophils # Man Lymphocytes # (Manual) Monocytes % (Manual) Eosinophils % (Manual) Monocytes # (Manual) Eosinophils # (Manual) D-Dimer Heparin Anti-Xa Level ABG pH POC ABG pCO2 POC ABG pO2 ABG pO2 ABG HCO3 ABG O2 Saturation ABG Base Excess ABG Hemoglobin ABG Oxyhemoglobin VBG pH Oxyhemoglobin Sodium Potassium Chloride Carbon Dioxide BUN 80 H Creatinine 1.5 H Glucose 139 H POC Glucose 169 H Lactic Acid Calcium 7.9 L Ferritin AST Alkaline Phosphatase Magnesium Lactate Dehydrogenase Total Creatine Kinase CK-MB (CK-2) C-Reactive Protein Total Protein 5.0 L Albumin 2.1 L Troponin T HDL Cholesterol Urine WBC (Auto) Urine Creatinine Urine Total Protein Coronavirus (PCR) Crossmatch 09/06/28/20 06/28/20 12:30 12:30 17:24 WBC RBC 2.38 L Hgb 7.3 L Hct 20.9 L MCHC 35 H RDW 16.7 H Lymph % (Auto) [place] % (Auto) Eos % (Auto) Lymph # [place] # Lymph # (Auto) [place] # (Auto) Seg Neutrophils % Seg Neuts % (Manual) Lymphocytes % (Manual) Seg Neutrophils # Seg Neutrophils # Man Lymphocytes # (Manual) Monocytes % (Manual) Eosinophils % (Manual) Monocytes # (Manual) Eosinophils # (Manual) D-Dimer Heparin Anti-Xa Level ABG pH POC ABG pCO2 POC ABG pO2 ABG pO2 ABG HCO3 ABG O2 Saturation ABG Base Excess ABG Hemoglobin ABG Oxyhemoglobin VBG pH Oxyhemoglobin Sodium Potassium Chloride Carbon Dioxide BUN 74 H Creatinine 1.5 H Glucose 143 H POC Glucose 173 H Lactic Acid Calcium 7.5 L Ferritin AST Alkaline Phosphatase Magnesium Lactate Dehydrogenase Total Creatine Kinase CK-MB (CK-2) C-Reactive Protein Total Protein Albumin Troponin T HDL Cholesterol Urine WBC (Auto) Urine Creatinine Urine Total Protein Coronavirus (PCR) Crossmatch 06/29/20 06/29/20 06/29/20 00:02 03:54 04:38 WBC RBC 2.55 L Hgb 7.3 L Hct 22.4 L MCHC RDW 16.4 H Lymph % (Auto) 13.3 L [place] % (Auto) 12.5 H Eos % (Auto) Lymph # 1.1 L [place] # 1.0 H Lymph # (Auto) [place] # (Auto) Seg Neutrophils % Seg Neuts % (Manual) Lymphocytes % (Manual) Seg Neutrophils # Seg Neutrophils # Man Lymphocytes # (Manual) Monocytes % (Manual) Eosinophils % (Manual) Monocytes # (Manual) Eosinophils # (Manual) D-Dimer Heparin Anti-Xa Level ABG pH POC ABG pCO2 POC ABG pO2 ABG pO2 ABG HCO3 26.9 H ABG O2 Saturation ABG Base Excess ABG Hemoglobin 6.9 L ABG Oxyhemoglobin VBG pH Oxyhemoglobin Sodium Potassium Chloride Carbon Dioxide BUN Creatinine Glucose POC Glucose 142 H Lactic Acid Calcium Ferritin AST Alkaline Phosphatase Magnesium Lactate Dehydrogenase Total Creatine Kinase CK-MB (CK-2) C-Reactive Protein Total Protein Albumin Troponin T HDL Cholesterol Urine WBC (Auto) Urine Creatinine Urine Total Protein Coronavirus (PCR) Crossmatch 06/29/20 06/29/20 06/29/20 04:38 05:38 12:25 WBC RBC Hgb Hct MCHC RDW Lymph % (Auto) [place] % (Auto) Eos % (Auto) Lymph # [place] # Lymph # (Auto) [place] # (Auto) Seg Neutrophils % Seg Neuts % (Manual) Lymphocytes % (Manual) Seg Neutrophils # Seg Neutrophils # Man Lymphocytes # (Manual) Monocytes % (Manual) Eosinophils % (Manual) Monocytes # (Manual) Eosinophils # (Manual) D-Dimer Heparin Anti-Xa Level ABG pH POC ABG pCO2 POC ABG pO2 ABG pO2 ABG HCO3 ABG O2 Saturation ABG Base Excess ABG Hemoglobin ABG Oxyhemoglobin VBG pH Oxyhemoglobin Sodium Potassium Chloride 107.8 H Carbon Dioxide BUN 72 H Creatinine 1.4 H Glucose 127 H POC Glucose 122 H 138 H Lactic Acid Calcium 7.4 L Ferritin AST Alkaline Phosphatase Magnesium Lactate Dehydrogenase Total Creatine Kinase CK-MB (CK-2) C-Reactive Protein Total Protein Albumin Troponin T HDL Cholesterol Urine WBC (Auto) Urine Creatinine Urine Total Protein Coronavirus (PCR) Crossmatch 06/29/20 06/29/20 06/29/20 14:45 14:45 14:45 WBC RBC Hgb Hct MCHC RDW Lymph % (Auto) [place] % (Auto) Eos % (Auto) Lymph # [place] # Lymph # (Auto) [place] # (Auto) Seg Neutrophils % Seg Neuts % (Manual) Lymphocytes % (Manual) Seg Neutrophils # Seg Neutrophils # Man Lymphocytes # (Manual) Monocytes % (Manual) Eosinophils % (Manual) Monocytes # (Manual) Eosinophils # (Manual) D-Dimer 2310.15 H Heparin Anti-Xa Level ABG pH POC ABG pCO2 POC ABG pO2 ABG pO2 ABG HCO3 ABG O2 Saturation ABG Base Excess ABG Hemoglobin ABG Oxyhemoglobin VBG pH Oxyhemoglobin Sodium Potassium Chloride Carbon Dioxide BUN Creatinine Glucose POC Glucose Lactic Acid Calcium Ferritin 223.6 H AST Alkaline Phosphatase Magnesium Lactate Dehydrogenase 367 H Total Creatine Kinase CK-MB (CK-2) C-Reactive Protein 3.60 H Total Protein Albumin Troponin T HDL Cholesterol Urine WBC (Auto) Urine Creatinine Urine Total Protein Coronavirus (PCR) Crossmatch 06/29/20 06/29/20 06/29/20 18:27 23:35 Unknown WBC RBC Hgb Hct MCHC RDW Lymph % (Auto) [place] % (Auto) Eos % (Auto) Lymph # [place] # Lymph # (Auto) [place] # (Auto) Seg Neutrophils % Seg Neuts % (Manual) Lymphocytes % (Manual) Seg Neutrophils # Seg Neutrophils # Man Lymphocytes # (Manual) Monocytes % (Manual) Eosinophils % (Manual) Monocytes # (Manual) Eosinophils # (Manual) D-Dimer Heparin Anti-Xa Level ABG pH POC ABG pCO2 POC ABG pO2 ABG pO2 ABG HCO3 ABG O2 Saturation ABG Base Excess ABG Hemoglobin ABG Oxyhemoglobin VBG pH Oxyhemoglobin Sodium Potassium Chloride Carbon Dioxide BUN Creatinine Glucose POC Glucose 112 H 140 H Lactic Acid Calcium Ferritin AST Alkaline Phosphatase Magnesium Lactate Dehydrogenase Total Creatine Kinase CK-MB (CK-2) C-Reactive Protein Total Protein Albumin Troponin T HDL Cholesterol Urine WBC (Auto) Urine Creatinine Urine Total Protein Coronavirus (PCR) Positive A Crossmatch 06/30/20 06/30/20 06/30/20 04:10 04:10 06:09 WBC RBC 2.44 L Hgb 7.1 L Hct 21.5 L MCHC RDW 16.6 H Lymph % (Auto) 11.0 L [place] % (Auto) 10.8 H Eos % (Auto) Lymph # 0.9 L [place] # 0.9 H Lymph # (Auto) [place] # (Auto) Seg Neutrophils % 73.7 H Seg Neuts % (Manual) Lymphocytes % (Manual) Seg Neutrophils # Seg Neutrophils # Man Lymphocytes # (Manual) Monocytes % (Manual) Eosinophils % (Manual) Monocytes # (Manual) Eosinophils # (Manual) D-Dimer Heparin Anti-Xa Level ABG pH POC ABG pCO2 POC ABG pO2 ABG pO2 ABG HCO3 ABG O2 Saturation ABG Base Excess ABG Hemoglobin ABG Oxyhemoglobin VBG pH Oxyhemoglobin Sodium Potassium Chloride 109.1 H Carbon Dioxide BUN 74 H Creatinine 1.3 H Glucose 191 H POC Glucose 187 H Lactic Acid Calcium 7.8 L Ferritin AST Alkaline Phosphatase Magnesium Lactate Dehydrogenase Total Creatine Kinase CK-MB (CK-2) C-Reactive Protein Total Protein Albumin Troponin T HDL Cholesterol Urine WBC (Auto) Urine Creatinine Urine Total Protein Coronavirus (PCR) Crossmatch 06/30/20 06/30/20 06/30/20 12:04 17:43 23:41 WBC RBC Hgb Hct MCHC RDW Lymph % (Auto) [place] % (Auto) Eos % (Auto) Lymph # [place] # Lymph # (Auto) [place] # (Auto) Seg Neutrophils % Seg Neuts % (Manual) Lymphocytes % (Manual) Seg Neutrophils # Seg Neutrophils # Man Lymphocytes # (Manual) Monocytes % (Manual) Eosinophils % (Manual) Monocytes # (Manual) Eosinophils # (Manual) D-Dimer Heparin Anti-Xa Level ABG pH POC ABG pCO2 POC ABG pO2 ABG pO2 ABG HCO3 ABG O2 Saturation ABG Base Excess ABG Hemoglobin ABG Oxyhemoglobin VBG pH Oxyhemoglobin Sodium Potassium Chloride Carbon Dioxide BUN Creatinine Glucose POC Glucose 112 H 177 H 143 H Lactic Acid Calcium Ferritin AST Alkaline Phosphatase Magnesium Lactate Dehydrogenase Total Creatine Kinase CK-MB (CK-2) C-Reactive Protein Total Protein Albumin Troponin T HDL Cholesterol Urine WBC (Auto) Urine Creatinine Urine Total Protein Coronavirus (PCR) Crossmatch 07/01/20 07/01/20 07/01/20 05:02 05:52 06:01 WBC 12.6 H RBC 2.95 L Hgb 8.2 L Hct 26.0 L MCHC RDW 16.9 H Lymph % (Auto) [place] % (Auto) Eos % (Auto) Lymph # [place] # Lymph # (Auto) [place] # (Auto) Seg Neutrophils % Seg Neuts % (Manual) Lymphocytes % (Manual) Seg Neutrophils # Seg Neutrophils # Man 8.6 H Lymphocytes # (Manual) Monocytes % (Manual) Eosinophils % (Manual) 5.0 H Monocytes # (Manual) Eosinophils # (Manual) 0.6 H D-Dimer Heparin Anti-Xa Level ABG pH POC ABG pCO2 POC ABG pO2 ABG pO2 ABG HCO3 ABG O2 Saturation ABG Base Excess ABG Hemoglobin 8.2 L ABG Oxyhemoglobin VBG pH Oxyhemoglobin Sodium Potassium Chloride Carbon Dioxide BUN Creatinine Glucose POC Glucose 129 H Lactic Acid Calcium Ferritin AST Alkaline Phosphatase Magnesium Lactate Dehydrogenase Total Creatine Kinase CK-MB (CK-2) C-Reactive Protein Total Protein Albumin Troponin T HDL Cholesterol Urine WBC (Auto) Urine Creatinine Urine Total Protein Coronavirus (PCR) Crossmatch 07/01/20 07/01/20 07/01/20 06:01 06:01 06:08 WBC RBC Hgb Hct MCHC RDW Lymph % (Auto) [place] % (Auto) Eos % (Auto) Lymph # [place] # Lymph # (Auto) [place] # (Auto) Seg Neutrophils % Seg Neuts % (Manual) Lymphocytes % (Manual) Seg Neutrophils # Seg Neutrophils # Man Lymphocytes # (Manual) Monocytes % (Manual) Eosinophils % (Manual) Monocytes # (Manual) Eosinophils # (Manual) D-Dimer Heparin Anti-Xa Level ABG pH POC ABG pCO2 POC ABG pO2 ABG pO2 ABG HCO3 ABG O2 Saturation ABG Base Excess ABG Hemoglobin ABG Oxyhemoglobin VBG pH Oxyhemoglobin Sodium 147 H Potassium Chloride 108.0 H Carbon Dioxide BUN 71 H Creatinine 1.3 H Glucose 193 H POC Glucose 192 H Lactic Acid Calcium 8.1 L Ferritin AST Alkaline Phosphatase Magnesium Lactate Dehydrogenase Total Creatine Kinase 300 H CK-MB (CK-2) C-Reactive Protein Total Protein Albumin Troponin T 0.067 H HDL Cholesterol 61 H Urine WBC (Auto) Urine Creatinine Urine Total Protein Coronavirus (PCR) Crossmatch 07/01/20 07/01/20 07/02/20 12:23 17:40 00:18 WBC RBC Hgb Hct MCHC RDW Lymph % (Auto) [place] % (Auto) Eos % (Auto) Lymph # [place] # Lymph # (Auto) [place] # (Auto) Seg Neutrophils % Seg Neuts % (Manual) Lymphocytes % (Manual) Seg Neutrophils # Seg Neutrophils # Man Lymphocytes # (Manual) Monocytes % (Manual) Eosinophils % (Manual) Monocytes # (Manual) Eosinophils # (Manual) D-Dimer Heparin Anti-Xa Level ABG pH POC ABG pCO2 POC ABG pO2 ABG pO2 ABG HCO3 ABG O2 Saturation ABG Base Excess ABG Hemoglobin ABG Oxyhemoglobin VBG pH Oxyhemoglobin Sodium Potassium Chloride Carbon Dioxide BUN Creatinine Glucose POC Glucose 111 H 135 H 145 H Lactic Acid Calcium Ferritin AST Alkaline Phosphatase Magnesium Lactate Dehydrogenase Total Creatine Kinase CK-MB (CK-2) C-Reactive Protein Total Protein Albumin Troponin T HDL Cholesterol Urine WBC (Auto) Urine Creatinine Urine Total Protein Coronavirus (PCR) Crossmatch 07/02/20 07/02/20 07/02/20 04:11 04:23 05:54 WBC RBC Hgb Hct MCHC RDW Lymph % (Auto) [place] % (Auto) Eos % (Auto) Lymph # [place] # Lymph # (Auto) [place] # (Auto) Seg Neutrophils % Seg Neuts % (Manual) Lymphocytes % (Manual) Seg Neutrophils # Seg Neutrophils # Man Lymphocytes # (Manual) Monocytes % (Manual) Eosinophils % (Manual) Monocytes # (Manual) Eosinophils # (Manual) D-Dimer Heparin Anti-Xa Level ABG pH POC ABG pCO2 POC ABG pO2 ABG pO2 ABG HCO3 ABG O2 Saturation ABG Base Excess ABG Hemoglobin 5.4 L ABG Oxyhemoglobin VBG pH Oxyhemoglobin Sodium Potassium Chloride 108.6 H Carbon Dioxide BUN 72 H Creatinine Glucose 112 H POC Glucose 137 H Lactic Acid Calcium 7.8 L Ferritin AST Alkaline Phosphatase Magnesium Lactate Dehydrogenase Total Creatine Kinase CK-MB (CK-2) C-Reactive Protein Total Protein Albumin Troponin T HDL Cholesterol Urine WBC (Auto) Urine Creatinine Urine Total Protein Coronavirus (PCR) Crossmatch 07/02/20 07/02/20 07/02/20 11:38 18:04 23:59 WBC RBC Hgb Hct MCHC RDW Lymph % (Auto) [place] % (Auto) Eos % (Auto) Lymph # [place] # Lymph # (Auto) [place] # (Auto) Seg Neutrophils % Seg Neuts % (Manual) Lymphocytes % (Manual) Seg Neutrophils # Seg Neutrophils # Man Lymphocytes # (Manual) Monocytes % (Manual) Eosinophils % (Manual) Monocytes # (Manual) Eosinophils # (Manual) D-Dimer Heparin Anti-Xa Level ABG pH POC ABG pCO2 POC ABG pO2 ABG pO2 ABG HCO3 ABG O2 Saturation ABG Base Excess ABG Hemoglobin ABG Oxyhemoglobin VBG pH Oxyhemoglobin Sodium Potassium Chloride Carbon Dioxide BUN Creatinine Glucose POC Glucose 128 H 135 H 156 H Lactic Acid Calcium Ferritin AST Alkaline Phosphatase Magnesium Lactate Dehydrogenase Total Creatine Kinase CK-MB (CK-2) C-Reactive Protein Total Protein Albumin Troponin T HDL Cholesterol Urine WBC (Auto) Urine Creatinine Urine Total Protein Coronavirus (PCR) Crossmatch 07/03/20 07/03/20 07/03/20 03:49 06:00 11:31 WBC RBC Hgb Hct MCHC RDW Lymph % (Auto) [place] % (Auto) Eos % (Auto) Lymph # [place] # Lymph # (Auto) [place] # (Auto) Seg Neutrophils % Seg Neuts % (Manual) Lymphocytes % (Manual) Seg Neutrophils # Seg Neutrophils # Man Lymphocytes # (Manual) Monocytes % (Manual) Eosinophils % (Manual) Monocytes # (Manual) Eosinophils # (Manual) D-Dimer Heparin Anti-Xa Level ABG pH POC ABG pCO2 POC ABG pO2 ABG pO2 121.0 H ABG HCO3 ABG O2 Saturation ABG Base Excess ABG Hemoglobin 8.5 L ABG Oxyhemoglobin VBG pH Oxyhemoglobin Sodium Potassium Chloride Carbon Dioxide BUN Creatinine Glucose POC Glucose 135 H 141 H Lactic Acid Calcium Ferritin AST Alkaline Phosphatase Magnesium Lactate Dehydrogenase Total Creatine Kinase CK-MB (CK-2) C-Reactive Protein Total Protein Albumin Troponin T HDL Cholesterol Urine WBC (Auto) Urine Creatinine Urine Total Protein Coronavirus (PCR) Crossmatch 07/03/20 07/03/20 07/04/20 16:07 17:40 05:49 WBC RBC Hgb Hct MCHC RDW Lymph % (Auto) [place] % (Auto) Eos % (Auto) Lymph # [place] # Lymph # (Auto) [place] # (Auto) Seg Neutrophils % Seg Neuts % (Manual) Lymphocytes % (Manual) Seg Neutrophils # Seg Neutrophils # Man Lymphocytes # (Manual) Monocytes % (Manual) Eosinophils % (Manual) Monocytes # (Manual) Eosinophils # (Manual) D-Dimer Heparin Anti-Xa Level ABG pH POC ABG pCO2 POC ABG pO2 ABG pO2 126.9 H ABG HCO3 ABG O2 Saturation ABG Base Excess ABG Hemoglobin 8.1 L ABG Oxyhemoglobin VBG pH Oxyhemoglobin Sodium Potassium Chloride Carbon Dioxide BUN Creatinine Glucose POC Glucose 120 H 128 H Lactic Acid Calcium Ferritin AST Alkaline Phosphatase Magnesium Lactate Dehydrogenase Total Creatine Kinase CK-MB (CK-2) C-Reactive Protein Total Protein Albumin Troponin T HDL Cholesterol Urine WBC (Auto) Urine Creatinine Urine Total Protein Coronavirus (PCR) Crossmatch 07/04/20 07/04/20 07/05/20 11:54 18:00 00:07 WBC RBC Hgb Hct MCHC RDW Lymph % (Auto) [place] % (Auto) Eos % (Auto) Lymph # [place] # Lymph # (Auto) [place] # (Auto) Seg Neutrophils % Seg Neuts % (Manual) Lymphocytes % (Manual) Seg Neutrophils # Seg Neutrophils # Man Lymphocytes # (Manual) Monocytes % (Manual) Eosinophils % (Manual) Monocytes # (Manual) Eosinophils # (Manual) D-Dimer Heparin Anti-Xa Level ABG pH POC ABG pCO2 POC ABG pO2 ABG pO2 ABG HCO3 ABG O2 Saturation ABG Base Excess ABG Hemoglobin ABG Oxyhemoglobin VBG pH Oxyhemoglobin Sodium Potassium Chloride Carbon Dioxide BUN Creatinine Glucose POC Glucose 168 H 133 H 121 H Lactic Acid Calcium Ferritin AST Alkaline Phosphatase Magnesium Lactate Dehydrogenase Total Creatine Kinase CK-MB (CK-2) C-Reactive Protein Total Protein Albumin Troponin T HDL Cholesterol Urine WBC (Auto) Urine Creatinine Urine Total Protein Coronavirus (PCR) Crossmatch 07/05/20 07/05/20 07/05/20 01:12 02:30 12:09 WBC RBC 2.35 L Hgb 6.9 L Hct 21.1 L MCHC RDW 16.8 H Lymph % (Auto) [place] % (Auto) Eos % (Auto) Lymph # [place] # Lymph # (Auto) [place] # (Auto) Seg Neutrophils % Seg Neuts % (Manual) 74.0 H Lymphocytes % (Manual) 12.0 L Seg Neutrophils # Seg Neutrophils # Man 8.0 H Lymphocytes # (Manual) Monocytes % (Manual) 9.0 H Eosinophils % (Manual) Monocytes # (Manual) 1.0 H Eosinophils # (Manual) D-Dimer Heparin Anti-Xa Level ABG pH POC ABG pCO2 POC ABG pO2 ABG pO2 ABG HCO3 ABG O2 Saturation ABG Base Excess ABG Hemoglobin ABG Oxyhemoglobin VBG pH Oxyhemoglobin Sodium Potassium Chloride Carbon Dioxide BUN Creatinine Glucose POC Glucose 132 H Lactic Acid Calcium Ferritin AST Alkaline Phosphatase Magnesium Lactate Dehydrogenase Total Creatine Kinase CK-MB (CK-2) C-Reactive Protein Total Protein Albumin Troponin T HDL Cholesterol Urine WBC (Auto) Urine Creatinine Urine Total Protein Coronavirus (PCR) Crossmatch See Detail 07/05/20 07/05/20 07/05/20 13:05 18:04 23:13 WBC RBC 2.57 L Hgb 7.7 L Hct 23.0 L MCHC RDW 16.9 H Lymph % (Auto) [place] % (Auto) Eos % (Auto) Lymph # [place] # Lymph # (Auto) [place] # (Auto) Seg Neutrophils % Seg Neuts % (Manual) Lymphocytes % (Manual) Seg Neutrophils # Seg Neutrophils # Man Lymphocytes # (Manual) Monocytes % (Manual) Eosinophils % (Manual) Monocytes # (Manual) Eosinophils # (Manual) D-Dimer Heparin Anti-Xa Level ABG pH 7.32 L POC ABG pCO2 POC ABG pO2 ABG pO2 78.3 L ABG HCO3 ABG O2 Saturation ABG Base Excess -2.6 L ABG Hemoglobin 7.3 L ABG Oxyhemoglobin VBG pH Oxyhemoglobin Sodium Potassium Chloride Carbon Dioxide BUN Creatinine Glucose POC Glucose 160 H Lactic Acid Calcium Ferritin AST Alkaline Phosphatase Magnesium Lactate Dehydrogenase Total Creatine Kinase CK-MB (CK-2) C-Reactive Protein Total Protein Albumin Troponin T HDL Cholesterol Urine WBC (Auto) Urine Creatinine Urine Total Protein Coronavirus (PCR) Crossmatch 07/05/20 07/05/20 07/06/20 23:13 23:43 13:20 WBC RBC Hgb Hct MCHC RDW Lymph % (Auto) [place] % (Auto) Eos % (Auto) Lymph # [place] # Lymph # (Auto) [place] # (Auto) Seg Neutrophils % Seg Neuts % (Manual) Lymphocytes % (Manual) Seg Neutrophils # Seg Neutrophils # Man Lymphocytes # (Manual) Monocytes % (Manual) Eosinophils % (Manual) Monocytes # (Manual) Eosinophils # (Manual) D-Dimer Heparin Anti-Xa Level ABG pH POC ABG pCO2 POC ABG pO2 ABG pO2 ABG HCO3 ABG O2 Saturation ABG Base Excess ABG Hemoglobin ABG Oxyhemoglobin VBG pH Oxyhemoglobin Sodium Potassium Chloride Carbon Dioxide 20 L BUN 80 H Creatinine 2.4 H D Glucose 124 H POC Glucose 121 H Lactic Acid Calcium 7.6 L Ferritin AST Alkaline Phosphatase Magnesium Lactate Dehydrogenase Total Creatine Kinase CK-MB (CK-2) C-Reactive Protein Total Protein Albumin Troponin T HDL Cholesterol Urine WBC (Auto) Urine Creatinine 33.3 H Urine Total Protein Coronavirus (PCR) Crossmatch 07/06/20 07/06/20 07/07/20 14:48 17:28 00:12 WBC RBC Hgb Hct MCHC RDW Lymph % (Auto) [place] % (Auto) Eos % (Auto) Lymph # [place] # Lymph # (Auto) [place] # (Auto) Seg Neutrophils % Seg Neuts % (Manual) Lymphocytes % (Manual) Seg Neutrophils # Seg Neutrophils # Man Lymphocytes # (Manual) Monocytes % (Manual) Eosinophils % (Manual) Monocytes # (Manual) Eosinophils # (Manual) D-Dimer Heparin Anti-Xa Level ABG pH POC ABG pCO2 POC ABG pO2 ABG pO2 ABG HCO3 ABG O2 Saturation ABG Base Excess ABG Hemoglobin ABG Oxyhemoglobin VBG pH Oxyhemoglobin Sodium 136 L Potassium 5.5 H Chloride Carbon Dioxide 19 L BUN 82 H Creatinine 2.5 H Glucose 113 H POC Glucose 133 H 154 H Lactic Acid Calcium 7.7 L Ferritin AST Alkaline Phosphatase Magnesium Lactate Dehydrogenase Total Creatine Kinase CK-MB (CK-2) C-Reactive Protein Total Protein Albumin Troponin T HDL Cholesterol Urine WBC (Auto) Urine Creatinine Urine Total Protein Coronavirus (PCR) Crossmatch 07/07/20 07/07/20 07/07/20 04:15 04:15 05:31 WBC RBC 2.28 L Hgb 6.8 L Hct 20.7 L MCHC RDW 16.8 H Lymph % (Auto) [place] % (Auto) Eos % (Auto) Lymph # [place] # Lymph # (Auto) [place] # (Auto) Seg Neutrophils % Seg Neuts % (Manual) Lymphocytes % (Manual) 13.0 L Seg Neutrophils # Seg Neutrophils # Man Lymphocytes # (Manual) 1.0 L Monocytes % (Manual) 11.0 H Eosinophils % (Manual) Monocytes # (Manual) 0.9 H Eosinophils # (Manual) D-Dimer Heparin Anti-Xa Level ABG pH POC ABG pCO2 POC ABG pO2 ABG pO2 ABG HCO3 ABG O2 Saturation ABG Base Excess ABG Hemoglobin ABG Oxyhemoglobin VBG pH Oxyhemoglobin Sodium Potassium Chloride Carbon Dioxide BUN Creatinine Glucose POC Glucose 135 H Lactic Acid Calcium Ferritin AST Alkaline Phosphatase Magnesium 2.50 H Lactate Dehydrogenase Total Creatine Kinase CK-MB (CK-2) C-Reactive Protein Total Protein Albumin Troponin T HDL Cholesterol Urine WBC (Auto) Urine Creatinine Urine Total Protein Coronavirus (PCR) Crossmatch 07/07/20 07/07/20 07/07/20 12:31 13:22 17:55 WBC RBC Hgb Hct MCHC RDW Lymph % (Auto) [place] % (Auto) Eos % (Auto) Lymph # [place] # Lymph # (Auto) [place] # (Auto) Seg Neutrophils % Seg Neuts % (Manual) Lymphocytes % (Manual) Seg Neutrophils # Seg Neutrophils # Man Lymphocytes # (Manual) Monocytes % (Manual) Eosinophils % (Manual) Monocytes # (Manual) Eosinophils # (Manual) D-Dimer Heparin Anti-Xa Level ABG pH POC ABG pCO2 POC ABG pO2 ABG pO2 ABG HCO3 ABG O2 Saturation ABG Base Excess ABG Hemoglobin ABG Oxyhemoglobin VBG pH Oxyhemoglobin Sodium Potassium 5.6 H Chloride Carbon Dioxide BUN 86 H Creatinine 2.9 H Glucose 127 H POC Glucose 131 H 136 H Lactic Acid Calcium 8.1 L Ferritin AST Alkaline Phosphatase Magnesium Lactate Dehydrogenase Total Creatine Kinase CK-MB (CK-2) C-Reactive Protein Total Protein Albumin Troponin T HDL Cholesterol Urine WBC (Auto) Urine Creatinine Urine Total Protein Coronavirus (PCR) Crossmatch 07/07/20 07/08/20 07/08/20 23:33 04:14 04:14 WBC RBC 3.28 L Hgb 9.7 L Hct 28.9 L D MCHC RDW 16.4 H Lymph % (Auto) 10.3 L [place] % (Auto) 10.0 H Eos % (Auto) Lymph # [place] # Lymph # (Auto) 1.1 L [place] # (Auto) 1.1 H Seg Neutrophils % 77.2 H Seg Neuts % (Manual) Lymphocytes % (Manual) Seg Neutrophils # 8.2 H Seg Neutrophils # Man Lymphocytes # (Manual) Monocytes % (Manual) Eosinophils % (Manual) Monocytes # (Manual) Eosinophils # (Manual) D-Dimer Heparin Anti-Xa Level ABG pH POC ABG pCO2 POC ABG pO2 ABG pO2 ABG HCO3 ABG O2 Saturation ABG Base Excess ABG Hemoglobin ABG Oxyhemoglobin VBG pH Oxyhemoglobin Sodium 136 L Potassium Chloride Carbon Dioxide BUN 84 H Creatinine 2.8 H Glucose 109 H POC Glucose 159 H Lactic Acid Calcium 8.1 L Ferritin AST Alkaline Phosphatase Magnesium 2.50 H Lactate Dehydrogenase Total Creatine Kinase CK-MB (CK-2) C-Reactive Protein Total Protein Albumin Troponin T HDL Cholesterol Urine WBC (Auto) Urine Creatinine Urine Total Protein Coronavirus (PCR) Crossmatch 07/08/20 07/08/20 07/08/20 12:10 18:10 23:50 WBC RBC Hgb Hct MCHC RDW Lymph % (Auto) [place] % (Auto) Eos % (Auto) Lymph # [place] # Lymph # (Auto) [place] # (Auto) Seg Neutrophils % Seg Neuts % (Manual) Lymphocytes % (Manual) Seg Neutrophils # Seg Neutrophils # Man Lymphocytes # (Manual) Monocytes % (Manual) Eosinophils % (Manual) Monocytes # (Manual) Eosinophils # (Manual) D-Dimer Heparin Anti-Xa Level ABG pH POC ABG pCO2 POC ABG pO2 ABG pO2 ABG HCO3 ABG O2 Saturation ABG Base Excess ABG Hemoglobin ABG Oxyhemoglobin VBG pH Oxyhemoglobin Sodium Potassium Chloride Carbon Dioxide BUN Creatinine Glucose POC Glucose 108 H 125 H 141 H Lactic Acid Calcium Ferritin AST Alkaline Phosphatase Magnesium Lactate Dehydrogenase Total Creatine Kinase CK-MB (CK-2) C-Reactive Protein Total Protein Albumin Troponin T HDL Cholesterol Urine WBC (Auto) Urine Creatinine Urine Total Protein Coronavirus (PCR) Crossmatch 07/09/20 07/09/20 07/09/20 05:39 11:57 17:56 WBC RBC Hgb Hct MCHC RDW Lymph % (Auto) [place] % (Auto) Eos % (Auto) Lymph # [place] # Lymph # (Auto) [place] # (Auto) Seg Neutrophils % Seg Neuts % (Manual) Lymphocytes % (Manual) Seg Neutrophils # Seg Neutrophils # Man Lymphocytes # (Manual) Monocytes % (Manual) Eosinophils % (Manual) Monocytes # (Manual) Eosinophils # (Manual) D-Dimer Heparin Anti-Xa Level ABG pH POC ABG pCO2 POC ABG pO2 ABG pO2 ABG HCO3 ABG O2 Saturation ABG Base Excess ABG Hemoglobin ABG Oxyhemoglobin VBG pH Oxyhemoglobin Sodium Potassium Chloride Carbon Dioxide BUN Creatinine Glucose POC Glucose 121 H 123 H 119 H Lactic Acid Calcium Ferritin AST Alkaline Phosphatase Magnesium Lactate Dehydrogenase Total Creatine Kinase CK-MB (CK-2) C-Reactive Protein Total Protein Albumin Troponin T HDL Cholesterol Urine WBC (Auto) Urine Creatinine Urine Total Protein Coronavirus (PCR) Crossmatch 07/10/20 07/10/20 07/10/20 00:29 05:50 10:41 WBC RBC 3.11 L Hgb 9.2 L Hct 27.6 L MCHC RDW 16.6 H Lymph % (Auto) [place] % (Auto) Eos % (Auto) Lymph # [place] # Lymph # (Auto) [place] # (Auto) Seg Neutrophils % Seg Neuts % (Manual) 78.0 H Lymphocytes % (Manual) 11.0 L Seg Neutrophils # Seg Neutrophils # Man Lymphocytes # (Manual) 1.0 L Monocytes % (Manual) Eosinophils % (Manual) Monocytes # (Manual) Eosinophils # (Manual) D-Dimer Heparin Anti-Xa Level ABG pH POC ABG pCO2 POC ABG pO2 ABG pO2 ABG HCO3 ABG O2 Saturation ABG Base Excess ABG Hemoglobin ABG Oxyhemoglobin VBG pH Oxyhemoglobin Sodium Potassium Chloride Carbon Dioxide BUN Creatinine Glucose POC Glucose 122 H 124 H Lactic Acid Calcium Ferritin AST Alkaline Phosphatase Magnesium Lactate Dehydrogenase Total Creatine Kinase CK-MB (CK-2) C-Reactive Protein Total Protein Albumin Troponin T HDL Cholesterol Urine WBC (Auto) Urine Creatinine Urine Total Protein Coronavirus (PCR) Crossmatch 07/10/20 07/10/20 07/10/20 10:41 12:25 18:10 WBC RBC Hgb Hct MCHC RDW Lymph % (Auto) [place] % (Auto) Eos % (Auto) Lymph # [place] # Lymph # (Auto) [place] # (Auto) Seg Neutrophils % Seg Neuts % (Manual) Lymphocytes % (Manual) Seg Neutrophils # Seg Neutrophils # Man Lymphocytes # (Manual) Monocytes % (Manual) Eosinophils % (Manual) Monocytes # (Manual) Eosinophils # (Manual) D-Dimer Heparin Anti-Xa Level ABG pH POC ABG pCO2 POC ABG pO2 ABG pO2 ABG HCO3 ABG O2 Saturation ABG Base Excess ABG Hemoglobin ABG Oxyhemoglobin VBG pH Oxyhemoglobin Sodium Potassium Chloride Carbon Dioxide BUN 85 H Creatinine 2.5 H Glucose 133 H POC Glucose 131 H 134 H Lactic Acid Calcium Ferritin AST Alkaline Phosphatase 131 H Magnesium Lactate Dehydrogenase Total Creatine Kinase CK-MB (CK-2) C-Reactive Protein Total Protein 5.2 L Albumin 1.6 L Troponin T HDL Cholesterol Urine WBC (Auto) Urine Creatinine Urine Total Protein Coronavirus (PCR) Crossmatch 07/11/20 07/11/20 07/11/20 00:28 05:57 12:14 WBC RBC Hgb Hct MCHC RDW Lymph % (Auto) [place] % (Auto) Eos % (Auto) Lymph # [place] # Lymph # (Auto) [place] # (Auto) Seg Neutrophils % Seg Neuts % (Manual) Lymphocytes % (Manual) Seg Neutrophils # Seg Neutrophils # Man Lymphocytes # (Manual) Monocytes % (Manual) Eosinophils % (Manual) Monocytes # (Manual) Eosinophils # (Manual) D-Dimer Heparin Anti-Xa Level ABG pH POC ABG pCO2 POC ABG pO2 ABG pO2 ABG HCO3 ABG O2 Saturation ABG Base Excess ABG Hemoglobin ABG Oxyhemoglobin VBG pH Oxyhemoglobin Sodium Potassium Chloride Carbon Dioxide BUN Creatinine Glucose POC Glucose 140 H 148 H 147 H Lactic Acid Calcium Ferritin AST Alkaline Phosphatase Magnesium Lactate Dehydrogenase Total Creatine Kinase CK-MB (CK-2) C-Reactive Protein Total Protein Albumin Troponin T HDL Cholesterol Urine WBC (Auto) Urine Creatinine Urine Total Protein Coronavirus (PCR) Crossmatch 07/11/20 07/11/20 07/12/20 17:28 23:49 05:14 WBC RBC 2.78 L Hgb 8.5 L Hct 25.3 L MCHC RDW 16.7 H Lymph % (Auto) [place] % (Auto) Eos % (Auto) Lymph # [place] # Lymph # (Auto) [place] # (Auto) Seg Neutrophils % Seg Neuts % (Manual) 81.0 H Lymphocytes % (Manual) 6.0 L Seg Neutrophils # Seg Neutrophils # Man Lymphocytes # (Manual) 0.6 L Monocytes % (Manual) 8.0 H Eosinophils % (Manual) Monocytes # (Manual) Eosinophils # (Manual) D-Dimer Heparin Anti-Xa Level ABG pH POC ABG pCO2 POC ABG pO2 ABG pO2 ABG HCO3 ABG O2 Saturation ABG Base Excess ABG Hemoglobin ABG Oxyhemoglobin VBG pH Oxyhemoglobin Sodium Potassium Chloride Carbon Dioxide BUN Creatinine Glucose POC Glucose 175 H 114 H Lactic Acid Calcium Ferritin AST Alkaline Phosphatase Magnesium Lactate Dehydrogenase Total Creatine Kinase CK-MB (CK-2) C-Reactive Protein Total Protein Albumin Troponin T HDL Cholesterol Urine WBC (Auto) Urine Creatinine Urine Total Protein Coronavirus (PCR) Crossmatch 07/12/20 07/12/20 07/12/20 05:14 05:44 11:32 WBC RBC Hgb Hct MCHC RDW Lymph % (Auto) [place] % (Auto) Eos % (Auto) Lymph # [place] # Lymph # (Auto) [place] # (Auto) Seg Neutrophils % Seg Neuts % (Manual) Lymphocytes % (Manual) Seg Neutrophils # Seg Neutrophils # Man Lymphocytes # (Manual) Monocytes % (Manual) Eosinophils % (Manual) Monocytes # (Manual) Eosinophils # (Manual) D-Dimer Heparin Anti-Xa Level ABG pH POC ABG pCO2 POC ABG pO2 ABG pO2 ABG HCO3 ABG O2 Saturation ABG Base Excess ABG Hemoglobin ABG Oxyhemoglobin VBG pH Oxyhemoglobin Sodium Potassium Chloride Carbon Dioxide BUN 79 H Creatinine 2.2 H Glucose 131 H POC Glucose 116 H 132 H Lactic Acid Calcium Ferritin AST Alkaline Phosphatase Magnesium Lactate Dehydrogenase Total Creatine Kinase CK-MB (CK-2) C-Reactive Protein Total Protein Albumin Troponin T HDL Cholesterol Urine WBC (Auto) Urine Creatinine Urine Total Protein Coronavirus (PCR) Crossmatch 07/12/20 07/13/20 07/13/20 17:53 00:18 04:53 WBC RBC 2.86 L Hgb 8.4 L Hct 25.7 L MCHC RDW 16.8 H Lymph % (Auto) [place] % (Auto) Eos % (Auto) Lymph # [place] # Lymph # (Auto) [place] # (Auto) Seg Neutrophils % Seg Neuts % (Manual) 84.0 H Lymphocytes % (Manual) 7.0 L Seg Neutrophils # Seg Neutrophils # Man Lymphocytes # (Manual) 0.6 L Monocytes % (Manual) Eosinophils % (Manual) Monocytes # (Manual) Eosinophils # (Manual) D-Dimer Heparin Anti-Xa Level ABG pH POC ABG pCO2 POC ABG pO2 ABG pO2 ABG HCO3 ABG O2 Saturation ABG Base Excess ABG Hemoglobin ABG Oxyhemoglobin VBG pH Oxyhemoglobin Sodium Potassium Chloride Carbon Dioxide BUN Creatinine Glucose POC Glucose 155 H 162 H Lactic Acid Calcium Ferritin AST Alkaline Phosphatase Magnesium Lactate Dehydrogenase Total Creatine Kinase CK-MB (CK-2) C-Reactive Protein Total Protein Albumin Troponin T HDL Cholesterol Urine WBC (Auto) Urine Creatinine Urine Total Protein Coronavirus (PCR) Crossmatch 07/13/20 07/13/20 07/13/20 04:53 06:14 12:50 WBC RBC Hgb Hct MCHC RDW Lymph % (Auto) [place] % (Auto) Eos % (Auto) Lymph # [place] # Lymph # (Auto) [place] # (Auto) Seg Neutrophils % Seg Neuts % (Manual) Lymphocytes % (Manual) Seg Neutrophils # Seg Neutrophils # Man Lymphocytes # (Manual) Monocytes % (Manual) Eosinophils % (Manual) Monocytes # (Manual) Eosinophils # (Manual) D-Dimer Heparin Anti-Xa Level ABG pH POC ABG pCO2 POC ABG pO2 ABG pO2 ABG HCO3 ABG O2 Saturation ABG Base Excess ABG Hemoglobin ABG Oxyhemoglobin VBG pH Oxyhemoglobin Sodium 136 L Potassium Chloride Carbon Dioxide BUN 78 H Creatinine 2.0 H Glucose 130 H POC Glucose 141 H 146 H Lactic Acid Calcium Ferritin AST Alkaline Phosphatase Magnesium Lactate Dehydrogenase Total Creatine Kinase CK-MB (CK-2) C-Reactive Protein Total Protein Albumin Troponin T HDL Cholesterol Urine WBC (Auto) Urine Creatinine Urine Total Protein Coronavirus (PCR) Crossmatch 07/13/20 07/14/20 07/14/20 18:27 00:22 05:43 WBC RBC Hgb Hct MCHC RDW Lymph % (Auto) [place] % (Auto) Eos % (Auto) Lymph # [place] # Lymph # (Auto) [place] # (Auto) Seg Neutrophils % Seg Neuts % (Manual) Lymphocytes % (Manual) Seg Neutrophils # Seg Neutrophils # Man Lymphocytes # (Manual) Monocytes % (Manual) Eosinophils % (Manual) Monocytes # (Manual) Eosinophils # (Manual) D-Dimer Heparin Anti-Xa Level ABG pH POC ABG pCO2 POC ABG pO2 ABG pO2 ABG HCO3 ABG O2 Saturation ABG Base Excess ABG Hemoglobin ABG Oxyhemoglobin VBG pH Oxyhemoglobin Sodium Potassium Chloride Carbon Dioxide BUN Creatinine Glucose POC Glucose 149 H 157 H 169 H Lactic Acid Calcium Ferritin AST Alkaline Phosphatase Magnesium Lactate Dehydrogenase Total Creatine Kinase CK-MB (CK-2) C-Reactive Protein Total Protein Albumin Troponin T HDL Cholesterol Urine WBC (Auto) Urine Creatinine Urine Total Protein Coronavirus (PCR) Crossmatch 07/14/20 07/14/20 07/14/20 08:04 12:12 17:23 WBC RBC Hgb Hct MCHC RDW Lymph % (Auto) [place] % (Auto) Eos % (Auto) Lymph # [place] # Lymph # (Auto) [place] # (Auto) Seg Neutrophils % Seg Neuts % (Manual) Lymphocytes % (Manual) Seg Neutrophils # Seg Neutrophils # Man Lymphocytes # (Manual) Monocytes % (Manual) Eosinophils % (Manual) Monocytes # (Manual) Eosinophils # (Manual) D-Dimer Heparin Anti-Xa Level ABG pH POC ABG pCO2 POC ABG pO2 ABG pO2 ABG HCO3 ABG O2 Saturation ABG Base Excess ABG Hemoglobin ABG Oxyhemoglobin VBG pH Oxyhemoglobin Sodium Potassium Chloride Carbon Dioxide BUN Creatinine Glucose POC Glucose 185 H 138 H Lactic Acid Calcium Ferritin AST Alkaline Phosphatase Magnesium Lactate Dehydrogenase Total Creatine Kinase CK-MB (CK-2) C-Reactive Protein Total Protein Albumin Troponin T HDL Cholesterol Urine WBC (Auto) Urine Creatinine Urine Total Protein Coronavirus (PCR) Positive A Crossmatch 07/15/20 07/15/20 07/15/20 00:04 06:06 12:00 WBC RBC Hgb Hct MCHC RDW Lymph % (Auto) [place] % (Auto) Eos % (Auto) Lymph # [place] # Lymph # (Auto) [place] # (Auto) Seg Neutrophils % Seg Neuts % (Manual) Lymphocytes % (Manual) Seg Neutrophils # Seg Neutrophils # Man Lymphocytes # (Manual) Monocytes % (Manual) Eosinophils % (Manual) Monocytes # (Manual) Eosinophils # (Manual) D-Dimer Heparin Anti-Xa Level ABG pH POC ABG pCO2 POC ABG pO2 ABG pO2 ABG HCO3 ABG O2 Saturation ABG Base Excess ABG Hemoglobin ABG Oxyhemoglobin VBG pH Oxyhemoglobin Sodium Potassium Chloride Carbon Dioxide BUN Creatinine Glucose POC Glucose 121 H 140 H 137 H Lactic Acid Calcium Ferritin AST Alkaline Phosphatase Magnesium Lactate Dehydrogenase Total Creatine Kinase CK-MB (CK-2) C-Reactive Protein Total Protein Albumin Troponin T HDL Cholesterol Urine WBC (Auto) Urine Creatinine Urine Total Protein Coronavirus (PCR) Crossmatch 07/15/20 07/15/20 07/16/20 17:53 23:53 05:26 WBC RBC Hgb Hct MCHC RDW Lymph % (Auto) [place] % (Auto) Eos % (Auto) Lymph # [place] # Lymph # (Auto) [place] # (Auto) Seg Neutrophils % Seg Neuts % (Manual) Lymphocytes % (Manual) Seg Neutrophils # Seg Neutrophils # Man Lymphocytes # (Manual) Monocytes % (Manual) Eosinophils % (Manual) Monocytes # (Manual) Eosinophils # (Manual) D-Dimer Heparin Anti-Xa Level ABG pH POC ABG pCO2 POC ABG pO2 ABG pO2 ABG HCO3 ABG O2 Saturation ABG Base Excess ABG Hemoglobin ABG Oxyhemoglobin VBG pH Oxyhemoglobin Sodium Potassium Chloride Carbon Dioxide BUN Creatinine Glucose POC Glucose 161 H 156 H 152 H Lactic Acid Calcium Ferritin AST Alkaline Phosphatase Magnesium Lactate Dehydrogenase Total Creatine Kinase CK-MB (CK-2) C-Reactive Protein Total Protein Albumin Troponin T HDL Cholesterol Urine WBC (Auto) Urine Creatinine Urine Total Protein Coronavirus (PCR) Crossmatch 07/16/20 07/17/20 07/17/20 17:44 00:07 12:06 WBC RBC Hgb Hct MCHC RDW Lymph % (Auto) [place] % (Auto) Eos % (Auto) Lymph # [place] # Lymph # (Auto) [place] # (Auto) Seg Neutrophils % Seg Neuts % (Manual) Lymphocytes % (Manual) Seg Neutrophils # Seg Neutrophils # Man Lymphocytes # (Manual) Monocytes % (Manual) Eosinophils % (Manual) Monocytes # (Manual) Eosinophils # (Manual) D-Dimer Heparin Anti-Xa Level ABG pH POC ABG pCO2 POC ABG pO2 ABG pO2 ABG HCO3 ABG O2 Saturation ABG Base Excess ABG Hemoglobin ABG Oxyhemoglobin VBG pH Oxyhemoglobin Sodium Potassium Chloride Carbon Dioxide BUN Creatinine Glucose POC Glucose 126 H 189 H 155 H Lactic Acid Calcium Ferritin AST Alkaline Phosphatase Magnesium Lactate Dehydrogenase Total Creatine Kinase CK-MB (CK-2) C-Reactive Protein Total Protein Albumin Troponin T HDL Cholesterol Urine WBC (Auto) Urine Creatinine Urine Total Protein Coronavirus (PCR) Crossmatch
[2020-07-17] MEDS: INSULIN GLARGINE 100 UNITS/ML SUB-Q SCH (21:53)
[2020-07-18] MEDS: INSULIN LISPRO 100 UNIT/ML VIAL 3 mL SUB-Q SCH ×3 (00:43→11:59)
[2020-07-18] MEDS: cloNIDine 0.2 MG TAB PO SCH ×2 (02:25→11:30)
[2020-07-18] MEDS: HEPARIN 5,000 UNIT/1 ML VIAL SUB-Q SCH ×3 (05:43→22:00)
[2020-07-18] MEDS: hydrALAZINE 100 MG TAB PO SCH ×3 (11:55→21:29)
[2020-07-18] MEDS: GLYCOPYRROLATE 2 MG TAB PO SCH ×3 (11:56→21:31)
[2020-07-18] MEDS: amLODIPine 10 MG TAB PO SCH (11:57)
[2020-07-18] MEDS: MODAFINIL 100 MG TAB PO SCH (11:57)
[2020-07-18] MEDS: carvediloL 12.5 MG TAB PO SCH ×2 (11:58→21:30)
[2020-07-18] MEDS: LANSOPRAZOLE 30 MG SOLUTAB FEEDTUBE SCH ×2 (11:58→21:30)
[2020-07-18] MEDS: SENNOSIDES ORAL LIQD 8.8 MG/5 ML ORAL LIQD FEEDTUBE SCH ×2 (11:59→21:32)
--- NOTE | 2020-07-18 12:41 | Progress Note ---
Assessment and Plan Cardiopulmoanry arrest 06/26/2020 with ROSC Acute hypoxemic respiratory failure , extubated now re-intubated Anemia s/p PRBC Severe COVID infection Multifocal pneumonia Morbid obesity Acute toxic metabolic encephalopathy AVANI secondary to COVID/vasomotor nephropathy Bilateral pulmonary edema. Bilateral pleural effusions. History of congestive heart failure. History of pulmonary hypertension. History of hypertension. Diabetes. Obesity hypoventilation syndrome. Oropharyngeal dysphagia. Trend temperature curve and WCC Daily SBTs as tolerated, her mental staus precludes liberation from MVS Trach and PEG , General surgery consult- plan for later this week if COVID negative Continue to avoid nephrotoxins, closely monitor renal function, dose all medications for renal function COVID positive, trach on hold Neurology consult- unable to give recommendations on prognosis( see note) Supportive transfusions as indicated - VAP bundle addressed -Aspiration precautions, HOB >40 -lung protective strategies-ARDS. net - continue bronchodilators with pulmonary hygiene per RT - wean per pulmonary driven protocols otherwise - continue to avoid benzodiazepines, reduce the possibility of delirium - prn analgesia per CPOT score - Continue to wean supplemental oxygen for target O2 sats > 92% -Continue to hold sedation, if needed intermittent dosing - conservative fluid management measures as tolerated by hemodynamics and renal function - Bronchodilators with pulmonary hygiene per RT - Accuchecks with glycemic control per SSI (While critically ill target blood glucose of 140-180 mg/dL; avoid hypoglycemia) - Maintenance of sleep-wake cycle, avoid delirium - Aspiration precautions, HOB >40 - Stress ulcer prophylaxis -Famotidine - Mobility protocol, off loading and skin assessment for pressure ulcer prevention - Supportive transfusions as indicated to keep HgB >7g/dL COVID SPECIFIC INTERVENTIONS -Airborne, contact isolation for COVID per facility protocols - s/p Remdesivir -IV steroids-Dexamethasone -Trend d-dimer,and other inflammatory markers per facility protocol -Convalescent plasma therapy per facility protocol -Continue all supportive care Discussed with the ICU team-RT,RN, Clinical Pharmacist, Case management Life threatening condition- Cardiopulmonary arrest with ROSC, Sepsis ;COVID 19 acute hypoxemic respiratory failure on MVS Mortality/Morbidity- High Complexity of medical decision making- High CONDITION: CRITICAL PROGNOSIS: GUARDED CODE STATUS: FULL CODE The high probability of a clinically significant, sudden or life-threatening deterioration of the [respiratory & neurology, renal ] system(s) required my full and direct attention, intervention and personal management. The aggregate critical care time was [32] minutes without overlap. Time includes spent on; [x] Data Review and interpretation [x] Patient assessment and monitoring of vital signs [x] Documentation [x] Medication orders and management Subjective Date of service: 07/18/20 Principal diagnosis: Ac hypoxemic resp failure; COVID-19; pneumonia; CHF; Pulm HTN; OHS; DM II Interval history: Patient is seen today for: Ac hypoxemic resp failure s/p Cardiopulmonary arrest with ROSC; Coronavirus-19 infection; pneumonia; Pulmonary edema; Bilateral pleural effusions; CHF; Morbid obesity; pulmonary hypertension; OHS; DM II Seen and examined at bedside; 24hour events reviewed; nursing and respiratory care staff consulted; Vitals, labs,medications, chart reviewed. Remains on MVS, no fevers, Did not tolerate PS trials today Mental status changes persist, but grimaces to pain and will open her eyes with sternal rub Tolerating tube feedings, No adverse overnight events Trach on hold secondary to recent positive COVID testing Neurology prognostication unable to be completed as an EEG was apparently cancelled secondary to COVID status, patient's habitus is such that she could not fit into the MRI machine Objective Vital Signs - 12hr 07/18/20 07/18/20 07/18/20 01:00 01:30 02:00 Temperature Pulse Rate 78 78 73 Pulse Rate [ From Monitor] Respiratory 20 19 19 Rate Blood Pressure 148/60 139/59 126/51 O2 Sat by Pulse 95 95 95 Oximetry 07/18/20 07/18/20 07/18/20 02:30 03:01 03:30 Temperature Pulse Rate 78 74 Pulse Rate [ From Monitor] Respiratory 23 15 Rate Blood Pressure 145/58 145/58 139/49 O2 Sat by Pulse 95 96 96 Oximetry 07/18/20 07/18/20 07/18/20 03:33 03:46 04:00 Temperature 99.8 F H Pulse Rate 69 70 Pulse Rate [ 72 From Monitor] Respiratory 15 Rate Blood Pressure 139/49 140/50 O2 Sat by Pulse 96 97 Oximetry 07/18/20 07/18/20 07/18/20 04:30 05:00 05:30 Temperature Pulse Rate 72 76 76 Pulse Rate [ From Monitor] Respiratory 12 15 18 Rate Blood Pressure 139/51 150/55 149/60 O2 Sat by Pulse 97 98 97 Oximetry 07/18/20 07/18/20 07/18/20 06:00 06:30 07:00 Temperature Pulse Rate 73 76 78 Pulse Rate [ From Monitor] Respiratory 13 16 14 Rate Blood Pressure 150/53 148/54 149/54 O2 Sat by Pulse 97 97 97 Oximetry 07/18/20 07/18/20 07/18/20 07:30 08:00 08:20 Temperature 99.0 F Pulse Rate 78 78 81 Pulse Rate [ 72 From Monitor] Respiratory 15 Rate Blood Pressure 153/55 153/52 159/52 O2 Sat by Pulse 97 97 97 Oximetry 07/18/20 07/18/20 07/18/20 08:30 09:00 09:30 Temperature Pulse Rate 82 85 86 Pulse Rate [ From Monitor] Respiratory Rate Blood Pressure 151/53 142/47 133/44 O2 Sat by Pulse 95 94 94 Oximetry 07/18/20 07/18/20 07/18/20 10:00 10:30 11:01 Temperature Pulse Rate 87 82 81 Pulse Rate [ From Monitor] Respiratory Rate Blood Pressure 147/45 128/40 148/42 O2 Sat by Pulse 81 L 93 90 Oximetry 07/18/20 07/18/20 07/18/20 11:30 11:57 11:58 Temperature Pulse Rate 81 75 75 Pulse Rate [ From Monitor] Respiratory 14 Rate Blood Pressure 125/48 125/78 125/78 O2 Sat by Pulse 94 Oximetry 07/18/20 12:00 Temperature 100.2 F H Pulse Rate 75 Pulse Rate [ 72 From Monitor] Respiratory 12 Rate Blood Pressure 119/40 O2 Sat by Pulse 93 Oximetry Constitutional: appears uncomfortable, other (elderly looking obese female on HFNC with mildly increased respiratory effort at rest on MVS) Eyes: non-icteric ENT: oropharynx dry, other (ETT 23-24 cm AYAN) Neck: supple, no lymphadenopathy, no JVD, other (large neck circumference) Effort: mildly labored Ascultation: Bilateral: clear, diminished breath sounds, rales, rhonchi Percussion: Bilateral: not dull Cardiovascular: regular rate and rhythm, other (S1,S2) Gastrointestinal: normoactive bowel sounds, soft, non-tender, non-distended Integumentary: normal Extremities: no cyanosis, pink and warm, pulses normal, no ischemia or petechiae, edema (trace) Neurologic: pupils equal and round, unable to assess, other (lethargic to obtunded) Psychiatric: other (unable to assess re: AMS) CBC and BMP: 07/19/20 01:05 07/19/20 01:05 ABG, PT/INR, D-dimer: ABG ABG pH 7.382 (7.320-7.450) 07/18/20 04:24 POC ABG pCO2 44.1 mmHg (32.0-48.0) 07/18/20 04:24 ABG pCO2 47.0 mm Hg 07/05/20 13:05 POC ABG pO2 86.8 mmHg (83-108) 07/18/20 04:24 ABG pO2 78.3 mm Hg (80.0-90.0) L 07/05/20 13:05 POC ABG HCO3 25.6 07/18/20 04:24 ABG O2 Saturation 96.1 % (95.0-99.0) 07/05/20 13:05 PT/INR, D-dimer PT 14.2 Sec. (12.2-14.9) 05/29/20 15:10 INR 1.08 (0.87-1.13) 05/29/20 15:10 D-Dimer 2310.15 ng/mlDDU (0-234) H 06/29/20 14:45 Abnormal lab findings: Abnormal Labs 05/28/20 05/28/20 05/28/20 13:29 13:47 13:47 WBC RBC Hgb Hct MCHC RDW 15.3 H Lymph % (Auto) [place] % (Auto) Eos % (Auto) Lymph # [place] # Lymph # (Auto) [place] # (Auto) Seg Neutrophils % Seg Neuts % (Manual) Lymphocytes % (Manual) Seg Neutrophils # Seg Neutrophils # Man Lymphocytes # (Manual) Monocytes % (Manual) Eosinophils % (Manual) Monocytes # (Manual) Eosinophils # (Manual) D-Dimer Heparin Anti-Xa Level ABG pH POC ABG pCO2 POC ABG pO2 ABG pO2 ABG HCO3 ABG O2 Saturation ABG Base Excess ABG Hemoglobin ABG Oxyhemoglobin VBG pH ABG Sodium ABG Potassium ABG Glucose Oxyhemoglobin Sodium Potassium 6.6 H* Chloride 109.2 H Carbon Dioxide 17 L BUN 29 H Creatinine 1.3 H Glucose 265 H POC Glucose 248 H Lactic Acid Calcium 8.1 L Ferritin AST 63 H Alkaline Phosphatase Magnesium Lactate Dehydrogenase Total Creatine Kinase 301 H CK-MB (CK-2) 4.3 H C-Reactive Protein Total Protein 5.4 L Albumin 2.6 L Troponin T HDL Cholesterol Arterial Blood Glucose Urine WBC (Auto) Urine Creatinine Urine Total Protein Coronavirus (PCR) Crossmatch 05/28/20 05/28/20 05/28/20 13:47 13:47 14:46 WBC RBC Hgb Hct MCHC RDW Lymph % (Auto) [place] % (Auto) Eos % (Auto) Lymph # [place] # Lymph # (Auto) [place] # (Auto) Seg Neutrophils % Seg Neuts % (Manual) Lymphocytes % (Manual) Seg Neutrophils # Seg Neutrophils # Man Lymphocytes # (Manual) Monocytes % (Manual) Eosinophils % (Manual) Monocytes # (Manual) Eosinophils # (Manual) D-Dimer Heparin Anti-Xa Level ABG pH POC ABG pCO2 POC ABG pO2 ABG pO2 ABG HCO3 ABG O2 Saturation ABG Base Excess ABG Hemoglobin ABG Oxyhemoglobin VBG pH 7.152 L* ABG Sodium ABG Potassium ABG Glucose Oxyhemoglobin Sodium Potassium 7.2 H* Chloride Carbon Dioxide BUN Creatinine Glucose POC Glucose Lactic Acid 3.40 H* Calcium Ferritin AST Alkaline Phosphatase Magnesium Lactate Dehydrogenase Total Creatine Kinase CK-MB (CK-2) C-Reactive Protein Total Protein Albumin Troponin T HDL Cholesterol Arterial Blood Glucose Urine WBC (Auto) Urine Creatinine Urine Total Protein Coronavirus (PCR) Crossmatch 05/28/20 05/28/20 05/28/20 15:33 15:33 15:51 WBC RBC Hgb Hct MCHC RDW Lymph % (Auto) [place] % (Auto) Eos % (Auto) Lymph # [place] # Lymph # (Auto) [place] # (Auto) Seg Neutrophils % Seg Neuts % (Manual) Lymphocytes % (Manual) Seg Neutrophils # Seg Neutrophils # Man Lymphocytes # (Manual) Monocytes % (Manual) Eosinophils % (Manual) Monocytes # (Manual) Eosinophils # (Manual) D-Dimer 8780.43 H Heparin Anti-Xa Level ABG pH 7.284 L POC ABG pCO2 POC ABG pO2 ABG pO2 273.0 H ABG HCO3 ABG O2 Saturation 99.4 H ABG Base Excess -6.1 L ABG Hemoglobin 17.2 H ABG Oxyhemoglobin VBG pH ABG Sodium ABG Potassium ABG Glucose Oxyhemoglobin Sodium Potassium Chloride Carbon Dioxide BUN Creatinine Glucose 152 H POC Glucose Lactic Acid Calcium Ferritin AST Alkaline Phosphatase Magnesium Lactate Dehydrogenase 365 H Total Creatine Kinase CK-MB (CK-2) C-Reactive Protein Total Protein Albumin Troponin T HDL Cholesterol Arterial Blood Glucose Urine WBC (Auto) Urine Creatinine Urine Total Protein Coronavirus (PCR) Crossmatch 05/28/20 05/28/20 05/28/20 16:30 20:41 23:20 WBC RBC Hgb Hct MCHC RDW Lymph % (Auto) [place] % (Auto) Eos % (Auto) Lymph # [place] # Lymph # (Auto) [place] # (Auto) Seg Neutrophils % Seg Neuts % (Manual) Lymphocytes % (Manual) Seg Neutrophils # Seg Neutrophils # Man Lymphocytes # (Manual) Monocytes % (Manual) Eosinophils % (Manual) Monocytes # (Manual) Eosinophils # (Manual) D-Dimer Heparin Anti-Xa Level ABG pH POC ABG pCO2 POC ABG pO2 ABG pO2 ABG HCO3 ABG O2 Saturation ABG Base Excess ABG Hemoglobin ABG Oxyhemoglobin VBG pH ABG Sodium ABG Potassium ABG Glucose Oxyhemoglobin Sodium Potassium Chloride Carbon Dioxide BUN Creatinine Glucose POC Glucose 225 H 224 H Lactic Acid Calcium Ferritin AST Alkaline Phosphatase Magnesium Lactate Dehydrogenase Total Creatine Kinase CK-MB (CK-2) C-Reactive Protein Total Protein Albumin Troponin T HDL Cholesterol Arterial Blood Glucose Urine WBC (Auto) 17.0 H Urine Creatinine Urine Total Protein Coronavirus (PCR) Crossmatch 05/28/20 05/29/20 05/29/20 Unknown 04:35 04:43 WBC RBC 3.48 L Hgb 9.8 L Hct 29.4 L MCHC RDW 16.0 H Lymph % (Auto) 7.4 L [place] % (Auto) Eos % (Auto) Lymph # 0.7 L [place] # Lymph # (Auto) [place] # (Auto) Seg Neutrophils % 89.1 H Seg Neuts % (Manual) Lymphocytes % (Manual) Seg Neutrophils # 8.1 H Seg Neutrophils # Man Lymphocytes # (Manual) Monocytes % (Manual) Eosinophils % (Manual) Monocytes # (Manual) Eosinophils # (Manual) D-Dimer Heparin Anti-Xa Level ABG pH POC ABG pCO2 POC ABG pO2 ABG pO2 ABG HCO3 19.3 L ABG O2 Saturation ABG Base Excess -4.5 L ABG Hemoglobin 9.7 L ABG Oxyhemoglobin VBG pH ABG Sodium ABG Potassium ABG Glucose Oxyhemoglobin Sodium Potassium Chloride Carbon Dioxide BUN Creatinine Glucose POC Glucose Lactic Acid Calcium Ferritin AST Alkaline Phosphatase Magnesium Lactate Dehydrogenase Total Creatine Kinase CK-MB (CK-2) C-Reactive Protein Total Protein Albumin Troponin T HDL Cholesterol Arterial Blood Glucose Urine WBC (Auto) Urine Creatinine Urine Total Protein Coronavirus (PCR) Positive A Crossmatch 05/29/20 05/29/20 05/29/20 04:43 15:10 17:17 WBC RBC Hgb 9.3 L Hct 28.7 L MCHC RDW Lymph % (Auto) [place] % (Auto) Eos % (Auto) Lymph # [place] # Lymph # (Auto) [place] # (Auto) Seg Neutrophils % Seg Neuts % (Manual) Lymphocytes % (Manual) Seg Neutrophils # Seg Neutrophils # Man Lymphocytes # (Manual) Monocytes % (Manual) Eosinophils % (Manual) Monocytes # (Manual) Eosinophils # (Manual) D-Dimer Heparin Anti-Xa Level ABG pH POC ABG pCO2 POC ABG pO2 ABG pO2 ABG HCO3 ABG O2 Saturation ABG Base Excess ABG Hemoglobin ABG Oxyhemoglobin VBG pH ABG Sodium ABG Potassium ABG Glucose Oxyhemoglobin Sodium Potassium Chloride 110.2 H Carbon Dioxide 18 L BUN 32 H Creatinine 1.4 H Glucose 180 H POC Glucose 147 H Lactic Acid Calcium Ferritin AST Alkaline Phosphatase Magnesium Lactate Dehydrogenase Total Creatine Kinase CK-MB (CK-2) C-Reactive Protein Total Protein Albumin Troponin T HDL Cholesterol Arterial Blood Glucose Urine WBC (Auto) Urine Creatinine Urine Total Protein Coronavirus (PCR) Crossmatch 05/30/20 05/30/20 05/30/20 00:08 00:12 04:15 WBC RBC Hgb Hct MCHC RDW Lymph % (Auto) [place] % (Auto) Eos % (Auto) Lymph # [place] # Lymph # (Auto) [place] # (Auto) Seg Neutrophils % Seg Neuts % (Manual) Lymphocytes % (Manual) Seg Neutrophils # Seg Neutrophils # Man Lymphocytes # (Manual) Monocytes % (Manual) Eosinophils % (Manual) Monocytes # (Manual) Eosinophils # (Manual) D-Dimer Heparin Anti-Xa Level 0.71 H ABG pH 7.460 H POC ABG pCO2 POC ABG pO2 ABG pO2 106.0 H ABG HCO3 18.9 L ABG O2 Saturation ABG Base Excess -4.4 L ABG Hemoglobin 6.8 L ABG Oxyhemoglobin VBG pH ABG Sodium ABG Potassium ABG Glucose Oxyhemoglobin Sodium Potassium Chloride Carbon Dioxide BUN Creatinine Glucose POC Glucose 195 H Lactic Acid Calcium Ferritin AST Alkaline Phosphatase Magnesium Lactate Dehydrogenase Total Creatine Kinase CK-MB (CK-2) C-Reactive Protein Total Protein Albumin Troponin T HDL Cholesterol Arterial Blood Glucose Urine WBC (Auto) Urine Creatinine Urine Total Protein Coronavirus (PCR) Crossmatch 05/30/20 05/30/20 05/30/20 06:07 08:37 12:33 WBC RBC Hgb Hct MCHC RDW Lymph % (Auto) [place] % (Auto) Eos % (Auto) Lymph # [place] # Lymph # (Auto) [place] # (Auto) Seg Neutrophils % Seg Neuts % (Manual) Lymphocytes % (Manual) Seg Neutrophils # Seg Neutrophils # Man Lymphocytes # (Manual) Monocytes % (Manual) Eosinophils % (Manual) Monocytes # (Manual) Eosinophils # (Manual) D-Dimer Heparin Anti-Xa Level 0.85 H ABG pH POC ABG pCO2 POC ABG pO2 ABG pO2 ABG HCO3 ABG O2 Saturation ABG Base Excess ABG Hemoglobin ABG Oxyhemoglobin VBG pH ABG Sodium ABG Potassium ABG Glucose Oxyhemoglobin Sodium Potassium Chloride Carbon Dioxide BUN Creatinine Glucose POC Glucose 182 H 187 H Lactic Acid Calcium Ferritin AST Alkaline Phosphatase Magnesium Lactate Dehydrogenase Total Creatine Kinase CK-MB (CK-2) C-Reactive Protein Total Protein Albumin Troponin T HDL Cholesterol Arterial Blood Glucose Urine WBC (Auto) Urine Creatinine Urine Total Protein Coronavirus (PCR) Crossmatch 05/30/20 05/30/20 05/30/20 15:58 17:57 23:36 WBC RBC Hgb Hct MCHC RDW Lymph % (Auto) [place] % (Auto) Eos % (Auto) Lymph # [place] # Lymph # (Auto) [place] # (Auto) Seg Neutrophils % Seg Neuts % (Manual) Lymphocytes % (Manual) Seg Neutrophils # Seg Neutrophils # Man Lymphocytes # (Manual) Monocytes % (Manual) Eosinophils % (Manual) Monocytes # (Manual) Eosinophils # (Manual) D-Dimer Heparin Anti-Xa Level 1.03 H ABG pH POC ABG pCO2 POC ABG pO2 ABG pO2 ABG HCO3 ABG O2 Saturation ABG Base Excess ABG Hemoglobin ABG Oxyhemoglobin VBG pH ABG Sodium ABG Potassium ABG Glucose Oxyhemoglobin Sodium Potassium Chloride Carbon Dioxide BUN Creatinine Glucose POC Glucose 208 H 185 H Lactic Acid Calcium Ferritin AST Alkaline Phosphatase Magnesium Lactate Dehydrogenase Total Creatine Kinase CK-MB (CK-2) C-Reactive Protein Total Protein Albumin Troponin T HDL Cholesterol Arterial Blood Glucose Urine WBC (Auto) Urine Creatinine Urine Total Protein Coronavirus (PCR) Crossmatch 05/31/20 05/31/20 05/31/20 02:16 03:55 06:16 WBC RBC Hgb 9.2 L Hct 27.5 L MCHC RDW Lymph % (Auto) [place] % (Auto) Eos % (Auto) Lymph # [place] # Lymph # (Auto) [place] # (Auto) Seg Neutrophils % Seg Neuts % (Manual) Lymphocytes % (Manual) Seg Neutrophils # Seg Neutrophils # Man Lymphocytes # (Manual) Monocytes % (Manual) Eosinophils % (Manual) Monocytes # (Manual) Eosinophils # (Manual) D-Dimer Heparin Anti-Xa Level ABG pH POC ABG pCO2 POC ABG pO2 ABG pO2 94.7 H ABG HCO3 18.6 L ABG O2 Saturation ABG Base Excess -5.5 L ABG Hemoglobin 7.9 L ABG Oxyhemoglobin VBG pH ABG Sodium ABG Potassium ABG Glucose Oxyhemoglobin Sodium Potassium Chloride Carbon Dioxide BUN Creatinine Glucose POC Glucose 160 H Lactic Acid Calcium Ferritin AST Alkaline Phosphatase Magnesium Lactate Dehydrogenase Total Creatine Kinase CK-MB (CK-2) C-Reactive Protein Total Protein Albumin Troponin T HDL Cholesterol Arterial Blood Glucose Urine WBC (Auto) Urine Creatinine Urine Total Protein Coronavirus (PCR) Crossmatch 05/31/20 05/31/20 05/31/20 12:20 13:03 18:13 WBC RBC Hgb Hct MCHC RDW Lymph % (Auto) [place] % (Auto) Eos % (Auto) Lymph # [place] # Lymph # (Auto) [place] # (Auto) Seg Neutrophils % Seg Neuts % (Manual) Lymphocytes % (Manual) Seg Neutrophils # Seg Neutrophils # Man Lymphocytes # (Manual) Monocytes % (Manual) Eosinophils % (Manual) Monocytes # (Manual) Eosinophils # (Manual) D-Dimer Heparin Anti-Xa Level ABG pH POC ABG pCO2 POC ABG pO2 ABG pO2 ABG HCO3 ABG O2 Saturation ABG Base Excess ABG Hemoglobin ABG Oxyhemoglobin VBG pH ABG Sodium ABG Potassium ABG Glucose Oxyhemoglobin Sodium Potassium Chloride Carbon Dioxide 18 L BUN 48 H Creatinine 1.6 H Glucose 115 H POC Glucose 128 H 159 H Lactic Acid Calcium 8.3 L Ferritin AST Alkaline Phosphatase Magnesium Lactate Dehydrogenase Total Creatine Kinase CK-MB (CK-2) C-Reactive Protein Total Protein 5.4 L Albumin 2.4 L Troponin T HDL Cholesterol Arterial Blood Glucose Urine WBC (Auto) Urine Creatinine Urine Total Protein Coronavirus (PCR) Crossmatch 05/31/20 06/01/20 06/01/20 23:51 04:00 05:48 WBC RBC Hgb Hct MCHC RDW Lymph % (Auto) [place] % (Auto) Eos % (Auto) Lymph # [place] # Lymph # (Auto) [place] # (Auto) Seg Neutrophils % Seg Neuts % (Manual) Lymphocytes % (Manual) Seg Neutrophils # Seg Neutrophils # Man Lymphocytes # (Manual) Monocytes % (Manual) Eosinophils % (Manual) Monocytes # (Manual) Eosinophils # (Manual) D-Dimer Heparin Anti-Xa Level ABG pH POC ABG pCO2 POC ABG pO2 ABG pO2 109.8 H ABG HCO3 18.8 L ABG O2 Saturation ABG Base Excess -5.9 L ABG Hemoglobin 7.8 L ABG Oxyhemoglobin VBG pH ABG Sodium ABG Potassium ABG Glucose Oxyhemoglobin Sodium Potassium Chloride Carbon Dioxide BUN Creatinine Glucose POC Glucose 171 H 133 H Lactic Acid Calcium Ferritin AST Alkaline Phosphatase Magnesium Lactate Dehydrogenase Total Creatine Kinase CK-MB (CK-2) C-Reactive Protein Total Protein Albumin Troponin T HDL Cholesterol Arterial Blood Glucose Urine WBC (Auto) Urine Creatinine Urine Total Protein Coronavirus (PCR) Crossmatch 06/01/20 06/01/20 06/02/20 12:28 17:29 00:08 WBC RBC Hgb Hct MCHC RDW Lymph % (Auto) [place] % (Auto) Eos % (Auto) Lymph # [place] # Lymph # (Auto) [place] # (Auto) Seg Neutrophils % Seg Neuts % (Manual) Lymphocytes % (Manual) Seg Neutrophils # Seg Neutrophils # Man Lymphocytes # (Manual) Monocytes % (Manual) Eosinophils % (Manual) Monocytes # (Manual) Eosinophils # (Manual) D-Dimer Heparin Anti-Xa Level ABG pH POC ABG pCO2 POC ABG pO2 ABG pO2 ABG HCO3 ABG O2 Saturation ABG Base Excess ABG Hemoglobin ABG Oxyhemoglobin VBG pH ABG Sodium ABG Potassium ABG Glucose Oxyhemoglobin Sodium Potassium Chloride Carbon Dioxide BUN Creatinine Glucose POC Glucose 199 H 209 H 162 H Lactic Acid Calcium Ferritin AST Alkaline Phosphatase Magnesium Lactate Dehydrogenase Total Creatine Kinase CK-MB (CK-2) C-Reactive Protein Total Protein Albumin Troponin T HDL Cholesterol Arterial Blood Glucose Urine WBC (Auto) Urine Creatinine Urine Total Protein Coronavirus (PCR) Crossmatch 06/02/20 06/02/20 06/02/20 04:20 04:20 04:44 WBC RBC Hgb 10.0 L Hct MCHC RDW Lymph % (Auto) [place] % (Auto) Eos % (Auto) Lymph # [place] # Lymph # (Auto) [place] # (Auto) Seg Neutrophils % Seg Neuts % (Manual) Lymphocytes % (Manual) Seg Neutrophils # Seg Neutrophils # Man Lymphocytes # (Manual) Monocytes % (Manual) Eosinophils % (Manual) Monocytes # (Manual) Eosinophils # (Manual) D-Dimer Heparin Anti-Xa Level 0.10 L ABG pH POC ABG pCO2 POC ABG pO2 ABG pO2 150.6 H ABG HCO3 ABG O2 Saturation ABG Base Excess -4.1 L ABG Hemoglobin 11.8 L ABG Oxyhemoglobin VBG pH ABG Sodium ABG Potassium ABG Glucose Oxyhemoglobin Sodium Potassium Chloride Carbon Dioxide BUN Creatinine Glucose POC Glucose Lactic Acid Calcium Ferritin AST Alkaline Phosphatase Magnesium Lactate Dehydrogenase Total Creatine Kinase CK-MB (CK-2) C-Reactive Protein Total Protein Albumin Troponin T HDL Cholesterol Arterial Blood Glucose Urine WBC (Auto) Urine Creatinine Urine Total Protein Coronavirus (PCR) Crossmatch 06/02/20 06/02/20 06/02/20 05:53 12:04 13:49 WBC RBC Hgb Hct MCHC RDW Lymph % (Auto) [place] % (Auto) Eos % (Auto) Lymph # [place] # Lymph # (Auto) [place] # (Auto) Seg Neutrophils % Seg Neuts % (Manual) Lymphocytes % (Manual) Seg Neutrophils # Seg Neutrophils # Man Lymphocytes # (Manual) Monocytes % (Manual) Eosinophils % (Manual) Monocytes # (Manual) Eosinophils # (Manual) D-Dimer Heparin Anti-Xa Level 0.28 L ABG pH POC ABG pCO2 POC ABG pO2 ABG pO2 ABG HCO3 ABG O2 Saturation ABG Base Excess ABG Hemoglobin ABG Oxyhemoglobin VBG pH ABG Sodium ABG Potassium ABG Glucose Oxyhemoglobin Sodium Potassium Chloride Carbon Dioxide BUN Creatinine Glucose POC Glucose 149 H 220 H Lactic Acid Calcium Ferritin AST Alkaline Phosphatase Magnesium Lactate Dehydrogenase Total Creatine Kinase CK-MB (CK-2) C-Reactive Protein Total Protein Albumin Troponin T HDL Cholesterol Arterial Blood Glucose Urine WBC (Auto) Urine Creatinine Urine Total Protein Coronavirus (PCR) Crossmatch 06/02/20 06/02/20 06/03/20 13:49 18:31 00:42 WBC RBC Hgb Hct MCHC RDW Lymph % (Auto) [place] % (Auto) Eos % (Auto) Lymph # [place] # Lymph # (Auto) [place] # (Auto) Seg Neutrophils % Seg Neuts % (Manual) Lymphocytes % (Manual) Seg Neutrophils # Seg Neutrophils # Man Lymphocytes # (Manual) Monocytes % (Manual) Eosinophils % (Manual) Monocytes # (Manual) Eosinophils # (Manual) D-Dimer 769.68 H Heparin Anti-Xa Level ABG pH POC ABG pCO2 POC ABG pO2 ABG pO2 ABG HCO3 ABG O2 Saturation ABG Base Excess ABG Hemoglobin ABG Oxyhemoglobin VBG pH ABG Sodium ABG Potassium ABG Glucose Oxyhemoglobin Sodium Potassium Chloride Carbon Dioxide BUN Creatinine Glucose POC Glucose 225 H 212 H Lactic Acid Calcium Ferritin AST Alkaline Phosphatase Magnesium Lactate Dehydrogenase Total Creatine Kinase CK-MB (CK-2) C-Reactive Protein Total Protein Albumin Troponin T HDL Cholesterol Arterial Blood Glucose Urine WBC (Auto) Urine Creatinine Urine Total Protein Coronavirus (PCR) Crossmatch 06/03/20 06/03/20 06/03/20 05:16 05:16 05:25 WBC 11.4 H RBC Hgb Hct MCHC RDW 16.4 H Lymph % (Auto) [place] % (Auto) Eos % (Auto) Lymph # [place] # Lymph # (Auto) [place] # (Auto) Seg Neutrophils % Seg Neuts % (Manual) Lymphocytes % (Manual) Seg Neutrophils # Seg Neutrophils # Man Lymphocytes # (Manual) Monocytes % (Manual) Eosinophils % (Manual) Monocytes # (Manual) Eosinophils # (Manual) D-Dimer Heparin Anti-Xa Level ABG pH POC ABG pCO2 POC ABG pO2 ABG pO2 160.9 H ABG HCO3 19.4 L ABG O2 Saturation ABG Base Excess -4.9 L ABG Hemoglobin 7.0 L ABG Oxyhemoglobin VBG pH ABG Sodium ABG Potassium ABG Glucose Oxyhemoglobin Sodium Potassium Chloride Carbon Dioxide 18 L BUN 65 H Creatinine 2.0 H Glucose 175 H POC Glucose Lactic Acid Calcium 8.0 L Ferritin AST Alkaline Phosphatase Magnesium Lactate Dehydrogenase Total Creatine Kinase CK-MB (CK-2) C-Reactive Protein Total Protein 5.5 L Albumin 2.2 L Troponin T HDL Cholesterol Arterial Blood Glucose Urine WBC (Auto) Urine Creatinine Urine Total Protein Coronavirus (PCR) Crossmatch 06/03/20 06/03/20 06/03/20 06:07 11:58 18:24 WBC RBC Hgb Hct MCHC RDW Lymph % (Auto) [place] % (Auto) Eos % (Auto) Lymph # [place] # Lymph # (Auto) [place] # (Auto) Seg Neutrophils % Seg Neuts % (Manual) Lymphocytes % (Manual) Seg Neutrophils # Seg Neutrophils # Man Lymphocytes # (Manual) Monocytes % (Manual) Eosinophils % (Manual) Monocytes # (Manual) Eosinophils # (Manual) D-Dimer Heparin Anti-Xa Level ABG pH POC ABG pCO2 POC ABG pO2 ABG pO2 ABG HCO3 ABG O2 Saturation ABG Base Excess ABG Hemoglobin ABG Oxyhemoglobin VBG pH ABG Sodium ABG Potassium ABG Glucose Oxyhemoglobin Sodium Potassium Chloride Carbon Dioxide BUN Creatinine Glucose POC Glucose 177 H 163 H 211 H Lactic Acid Calcium Ferritin AST Alkaline Phosphatase Magnesium Lactate Dehydrogenase Total Creatine Kinase CK-MB (CK-2) C-Reactive Protein Total Protein Albumin Troponin T HDL Cholesterol Arterial Blood Glucose Urine WBC (Auto) Urine Creatinine Urine Total Protein Coronavirus (PCR) Crossmatch 06/03/20 06/03/20 06/04/20 21:50 Unknown 00:26 WBC RBC Hgb Hct MCHC RDW Lymph % (Auto) [place] % (Auto) Eos % (Auto) Lymph # [place] # Lymph # (Auto) [place] # (Auto) Seg Neutrophils % Seg Neuts % (Manual) Lymphocytes % (Manual) Seg Neutrophils # Seg Neutrophils # Man Lymphocytes # (Manual) Monocytes % (Manual) Eosinophils % (Manual) Monocytes # (Manual) Eosinophils # (Manual) D-Dimer Heparin Anti-Xa Level ABG pH POC ABG pCO2 POC ABG pO2 ABG pO2 ABG HCO3 ABG O2 Saturation ABG Base Excess ABG Hemoglobin ABG Oxyhemoglobin VBG pH ABG Sodium ABG Potassium ABG Glucose Oxyhemoglobin Sodium 135 L Potassium Chloride Carbon Dioxide 18 L BUN Creatinine Glucose POC Glucose 241 H Lactic Acid Calcium Ferritin AST Alkaline Phosphatase Magnesium Lactate Dehydrogenase Total Creatine Kinase CK-MB (CK-2) C-Reactive Protein Total Protein Albumin Troponin T HDL Cholesterol Arterial Blood Glucose Urine WBC (Auto) 11.0 H Urine Creatinine Urine Total Protein Coronavirus (PCR) Crossmatch 06/04/20 06/04/20 06/04/20 03:35 04:19 04:19 WBC RBC 3.15 L Hgb 8.9 L Hct 26.8 L D MCHC RDW 15.9 H Lymph % (Auto) 6.0 L [place] % (Auto) Eos % (Auto) Lymph # 0.6 L [place] # Lymph # (Auto) [place] # (Auto) Seg Neutrophils % 86.6 H Seg Neuts % (Manual) Lymphocytes % (Manual) Seg Neutrophils # 9.1 H Seg Neutrophils # Man Lymphocytes # (Manual) Monocytes % (Manual) Eosinophils % (Manual) Monocytes # (Manual) Eosinophils # (Manual) D-Dimer Heparin Anti-Xa Level ABG pH 7.331 L POC ABG pCO2 POC ABG pO2 ABG pO2 ABG HCO3 ABG O2 Saturation ABG Base Excess -4.7 L ABG Hemoglobin 11.0 L ABG Oxyhemoglobin VBG pH ABG Sodium ABG Potassium ABG Glucose Oxyhemoglobin 93.9 L Sodium 136 L Potassium Chloride Carbon Dioxide 20 L BUN 73 H Creatinine 2.0 H Glucose 192 H POC Glucose Lactic Acid Calcium 8.0 L Ferritin AST Alkaline Phosphatase Magnesium Lactate Dehydrogenase 271 H Total Creatine Kinase CK-MB (CK-2) C-Reactive Protein 2.20 H Total Protein 5.0 L Albumin 2.0 L Troponin T HDL Cholesterol Arterial Blood Glucose Urine WBC (Auto) Urine Creatinine Urine Total Protein Coronavirus (PCR) Crossmatch 06/04/20 06/04/20 06/04/20 04:19 05:51 11:48 WBC RBC Hgb Hct MCHC RDW Lymph % (Auto) [place] % (Auto) Eos % (Auto) Lymph # [place] # Lymph # (Auto) [place] # (Auto) Seg Neutrophils % Seg Neuts % (Manual) Lymphocytes % (Manual) Seg Neutrophils # Seg Neutrophils # Man Lymphocytes # (Manual) Monocytes % (Manual) Eosinophils % (Manual) Monocytes # (Manual) Eosinophils # (Manual) D-Dimer 414.52 H Heparin Anti-Xa Level ABG pH POC ABG pCO2 POC ABG pO2 ABG pO2 ABG HCO3 ABG O2 Saturation ABG Base Excess ABG Hemoglobin ABG Oxyhemoglobin VBG pH ABG Sodium ABG Potassium ABG Glucose Oxyhemoglobin Sodium Potassium Chloride Carbon Dioxide BUN Creatinine Glucose POC Glucose 179 H 213 H Lactic Acid Calcium Ferritin AST Alkaline Phosphatase Magnesium Lactate Dehydrogenase Total Creatine Kinase CK-MB (CK-2) C-Reactive Protein Total Protein Albumin Troponin T HDL Cholesterol Arterial Blood Glucose Urine WBC (Auto) Urine Creatinine Urine Total Protein Coronavirus (PCR) Crossmatch 06/04/20 06/05/20 06/05/20 18:25 00:16 05:00 WBC RBC Hgb Hct MCHC RDW Lymph % (Auto) [place] % (Auto) Eos % (Auto) Lymph # [place] # Lymph # (Auto) [place] # (Auto) Seg Neutrophils % Seg Neuts % (Manual) Lymphocytes % (Manual) Seg Neutrophils # Seg Neutrophils # Man Lymphocytes # (Manual) Monocytes % (Manual) Eosinophils % (Manual) Monocytes # (Manual) Eosinophils # (Manual) D-Dimer Heparin Anti-Xa Level ABG pH 7.286 L POC ABG pCO2 POC ABG pO2 ABG pO2 96.2 H ABG HCO3 ABG O2 Saturation ABG Base Excess -6.3 L ABG Hemoglobin 8.8 L ABG Oxyhemoglobin VBG pH ABG Sodium ABG Potassium ABG Glucose Oxyhemoglobin 94.8 L Sodium Potassium Chloride Carbon Dioxide BUN Creatinine Glucose POC Glucose 238 H 183 H Lactic Acid Calcium Ferritin AST Alkaline Phosphatase Magnesium Lactate Dehydrogenase Total Creatine Kinase CK-MB (CK-2) C-Reactive Protein Total Protein Albumin Troponin T HDL Cholesterol Arterial Blood Glucose Urine WBC (Auto) Urine Creatinine Urine Total Protein Coronavirus (PCR) Crossmatch 06/05/20 06/05/20 06/05/20 05:39 07:25 07:25 WBC RBC 2.97 L Hgb 8.7 L Hct 25.7 L MCHC RDW 16.0 H Lymph % (Auto) 8.8 L [place] % (Auto) 13.3 H Eos % (Auto) Lymph # 0.8 L [place] # 1.3 H Lymph # (Auto) [place] # (Auto) Seg Neutrophils % 77.3 H Seg Neuts % (Manual) Lymphocytes % (Manual) Seg Neutrophils # Seg Neutrophils # Man Lymphocytes # (Manual) Monocytes % (Manual) Eosinophils % (Manual) Monocytes # (Manual) Eosinophils # (Manual) D-Dimer Heparin Anti-Xa Level ABG pH POC ABG pCO2 POC ABG pO2 ABG pO2 ABG HCO3 ABG O2 Saturation ABG Base Excess ABG Hemoglobin ABG Oxyhemoglobin VBG pH ABG Sodium ABG Potassium ABG Glucose Oxyhemoglobin Sodium 133 L Potassium Chloride Carbon Dioxide 17 L BUN 89 H Creatinine 2.8 H Glucose 176 H POC Glucose 149 H Lactic Acid Calcium 7.7 L Ferritin AST Alkaline Phosphatase Magnesium Lactate Dehydrogenase Total Creatine Kinase CK-MB (CK-2) C-Reactive Protein Total Protein 4.2 L Albumin 1.9 L Troponin T HDL Cholesterol Arterial Blood Glucose Urine WBC (Auto) Urine Creatinine Urine Total Protein Coronavirus (PCR) Crossmatch 06/05/20 06/05/20 06/05/20 07:25 12:05 15:41 WBC RBC Hgb Hct MCHC RDW Lymph % (Auto) [place] % (Auto) Eos % (Auto) Lymph # [place] # Lymph # (Auto) [place] # (Auto) Seg Neutrophils % Seg Neuts % (Manual) Lymphocytes % (Manual) Seg Neutrophils # Seg Neutrophils # Man Lymphocytes # (Manual) Monocytes % (Manual) Eosinophils % (Manual) Monocytes # (Manual) Eosinophils # (Manual) D-Dimer Heparin Anti-Xa Level 0.76 H 0.81 H ABG pH POC ABG pCO2 POC ABG pO2 ABG pO2 ABG HCO3 ABG O2 Saturation ABG Base Excess ABG Hemoglobin ABG Oxyhemoglobin VBG pH ABG Sodium ABG Potassium ABG Glucose Oxyhemoglobin Sodium Potassium Chloride Carbon Dioxide BUN Creatinine Glucose POC Glucose 198 H Lactic Acid Calcium Ferritin AST Alkaline Phosphatase Magnesium Lactate Dehydrogenase Total Creatine Kinase CK-MB (CK-2) C-Reactive Protein Total Protein Albumin Troponin T HDL Cholesterol Arterial Blood Glucose Urine WBC (Auto) Urine Creatinine Urine Total Protein Coronavirus (PCR) Crossmatch 06/05/20 06/05/20 06/06/20 18:08 23:25 04:00 WBC RBC Hgb Hct MCHC RDW Lymph % (Auto) [place] % (Auto) Eos % (Auto) Lymph # [place] # Lymph # (Auto) [place] # (Auto) Seg Neutrophils % Seg Neuts % (Manual) Lymphocytes % (Manual) Seg Neutrophils # Seg Neutrophils # Man Lymphocytes # (Manual) Monocytes % (Manual) Eosinophils % (Manual) Monocytes # (Manual) Eosinophils # (Manual) D-Dimer Heparin Anti-Xa Level ABG pH POC ABG pCO2 POC ABG pO2 ABG pO2 ABG HCO3 ABG O2 Saturation ABG Base Excess ABG Hemoglobin ABG Oxyhemoglobin VBG pH ABG Sodium ABG Potassium ABG Glucose Oxyhemoglobin Sodium Potassium Chloride Carbon Dioxide BUN Creatinine Glucose POC Glucose 223 H 169 H Lactic Acid Calcium Ferritin AST Alkaline Phosphatase Magnesium Lactate Dehydrogenase Total Creatine Kinase CK-MB (CK-2) C-Reactive Protein Total Protein Albumin Troponin T HDL Cholesterol Arterial Blood Glucose Urine WBC (Auto) 15.0 H Urine Creatinine Urine Total Protein Coronavirus (PCR) Crossmatch 06/06/20 06/06/20 06/06/20 04:00 05:33 05:38 WBC RBC 2.97 L Hgb 8.7 L Hct 26.8 L MCHC RDW 16.8 H Lymph % (Auto) [place] % (Auto) Eos % (Auto) Lymph # [place] # Lymph # (Auto) [place] # (Auto) Seg Neutrophils % Seg Neuts % (Manual) Lymphocytes % (Manual) Seg Neutrophils # Seg Neutrophils # Man Lymphocytes # (Manual) Monocytes % (Manual) Eosinophils % (Manual) Monocytes # (Manual) Eosinophils # (Manual) D-Dimer Heparin Anti-Xa Level ABG pH POC ABG pCO2 POC ABG pO2 ABG pO2 ABG HCO3 ABG O2 Saturation ABG Base Excess ABG Hemoglobin ABG Oxyhemoglobin VBG pH ABG Sodium ABG Potassium ABG Glucose Oxyhemoglobin Sodium Potassium Chloride Carbon Dioxide BUN Creatinine Glucose POC Glucose 186 H Lactic Acid Calcium Ferritin AST Alkaline Phosphatase Magnesium Lactate Dehydrogenase Total Creatine Kinase CK-MB (CK-2) C-Reactive Protein Total Protein Albumin Troponin T HDL Cholesterol Arterial Blood Glucose Urine WBC (Auto) Urine Creatinine 82.2 H Urine Total Protein 196 H Coronavirus (PCR) Crossmatch 06/06/20 06/06/20 06/06/20 05:38 12:25 17:03 WBC RBC Hgb Hct MCHC RDW Lymph % (Auto) [place] % (Auto) Eos % (Auto) Lymph # [place] # Lymph # (Auto) [place] # (Auto) Seg Neutrophils % Seg Neuts % (Manual) Lymphocytes % (Manual) Seg Neutrophils # Seg Neutrophils # Man Lymphocytes # (Manual) Monocytes % (Manual) Eosinophils % (Manual) Monocytes # (Manual) Eosinophils # (Manual) D-Dimer Heparin Anti-Xa Level ABG pH POC ABG pCO2 POC ABG pO2 ABG pO2 ABG HCO3 ABG O2 Saturation ABG Base Excess ABG Hemoglobin ABG Oxyhemoglobin VBG pH ABG Sodium ABG Potassium ABG Glucose Oxyhemoglobin Sodium 134 L Potassium 5.2 H Chloride Carbon Dioxide 18 L BUN 97 H Creatinine 2.5 H Glucose 193 H POC Glucose 239 H 252 H Lactic Acid Calcium 7.5 L Ferritin AST Alkaline Phosphatase Magnesium Lactate Dehydrogenase Total Creatine Kinase CK-MB (CK-2) C-Reactive Protein Total Protein 4.1 L Albumin 1.9 L Troponin T HDL Cholesterol Arterial Blood Glucose Urine WBC (Auto) Urine Creatinine Urine Total Protein Coronavirus (PCR) Crossmatch 06/07/20 06/07/20 06/07/20 00:16 01:49 04:00 WBC RBC 2.91 L Hgb 8.4 L Hct 25.0 L MCHC RDW 16.1 H Lymph % (Auto) 5.7 L [place] % (Auto) 10.5 H Eos % (Auto) Lymph # 0.6 L [place] # 1.1 H Lymph # (Auto) [place] # (Auto) Seg Neutrophils % 83.6 H Seg Neuts % (Manual) Lymphocytes % (Manual) Seg Neutrophils # 9.1 H Seg Neutrophils # Man Lymphocytes # (Manual) Monocytes % (Manual) Eosinophils % (Manual) Monocytes # (Manual) Eosinophils # (Manual) D-Dimer Heparin Anti-Xa Level 0.26 L ABG pH POC ABG pCO2 POC ABG pO2 ABG pO2 ABG HCO3 ABG O2 Saturation ABG Base Excess ABG Hemoglobin ABG Oxyhemoglobin VBG pH ABG Sodium ABG Potassium ABG Glucose Oxyhemoglobin Sodium Potassium Chloride Carbon Dioxide BUN Creatinine Glucose POC Glucose 173 H Lactic Acid Calcium Ferritin AST Alkaline Phosphatase Magnesium Lactate Dehydrogenase Total Creatine Kinase CK-MB (CK-2) C-Reactive Protein Total Protein Albumin Troponin T HDL Cholesterol Arterial Blood Glucose Urine WBC (Auto) Urine Creatinine Urine Total Protein Coronavirus (PCR) Crossmatch 06/07/20 06/07/20 06/07/20 04:00 04:54 05:51 WBC RBC Hgb Hct MCHC RDW Lymph % (Auto) [place] % (Auto) Eos % (Auto) Lymph # [place] # Lymph # (Auto) [place] # (Auto) Seg Neutrophils % Seg Neuts % (Manual) Lymphocytes % (Manual) Seg Neutrophils # Seg Neutrophils # Man Lymphocytes # (Manual) Monocytes % (Manual) Eosinophils % (Manual) Monocytes # (Manual) Eosinophils # (Manual) D-Dimer Heparin Anti-Xa Level ABG pH 7.317 L POC ABG pCO2 POC ABG pO2 ABG pO2 71.4 L ABG HCO3 ABG O2 Saturation 94.3 L ABG Base Excess -4.8 L ABG Hemoglobin 7.1 L ABG Oxyhemoglobin VBG pH ABG Sodium ABG Potassium ABG Glucose Oxyhemoglobin 92.2 L Sodium 133 L Potassium Chloride Carbon Dioxide 18 L BUN 100 H Creatinine 2.5 H Glucose 158 H POC Glucose 168 H Lactic Acid Calcium 7.6 L Ferritin AST Alkaline Phosphatase Magnesium Lactate Dehydrogenase Total Creatine Kinase CK-MB (CK-2) C-Reactive Protein Total Protein 4.7 L Albumin 2.0 L Troponin T HDL Cholesterol Arterial Blood Glucose Urine WBC (Auto) Urine Creatinine Urine Total Protein Coronavirus (PCR) Crossmatch 06/07/20 06/07/20 06/07/20 12:03 17:17 20:10 WBC RBC Hgb Hct MCHC RDW Lymph % (Auto) [place] % (Auto) Eos % (Auto) Lymph # [place] # Lymph # (Auto) [place] # (Auto) Seg Neutrophils % Seg Neuts % (Manual) Lymphocytes % (Manual) Seg Neutrophils # Seg Neutrophils # Man Lymphocytes # (Manual) Monocytes % (Manual) Eosinophils % (Manual) Monocytes # (Manual) Eosinophils # (Manual) D-Dimer Heparin Anti-Xa Level 0.17 L ABG pH POC ABG pCO2 POC ABG pO2 ABG pO2 ABG HCO3 ABG O2 Saturation ABG Base Excess ABG Hemoglobin ABG Oxyhemoglobin VBG pH ABG Sodium ABG Potassium ABG Glucose Oxyhemoglobin Sodium Potassium Chloride Carbon Dioxide BUN Creatinine Glucose POC Glucose 276 H 281 H Lactic Acid Calcium Ferritin AST Alkaline Phosphatase Magnesium Lactate Dehydrogenase Total Creatine Kinase CK-MB (CK-2) C-Reactive Protein Total Protein Albumin Troponin T HDL Cholesterol Arterial Blood Glucose Urine WBC (Auto) Urine Creatinine Urine Total Protein Coronavirus (PCR) Crossmatch 06/08/20 06/08/20 06/08/20 00:02 04:47 04:47 WBC 16.4 H RBC 3.07 L Hgb 8.6 L Hct 26.5 L MCHC RDW 16.3 H Lymph % (Auto) [place] % (Auto) Eos % (Auto) Lymph # [place] # Lymph # (Auto) [place] # (Auto) Seg Neutrophils % Seg Neuts % (Manual) 90.0 H Lymphocytes % (Manual) 3.0 L Seg Neutrophils # Seg Neutrophils # Man 14.8 H Lymphocytes # (Manual) 0.5 L Monocytes % (Manual) Eosinophils % (Manual) Monocytes # (Manual) 1.1 H Eosinophils # (Manual) D-Dimer Heparin Anti-Xa Level ABG pH POC ABG pCO2 POC ABG pO2 ABG pO2 ABG HCO3 ABG O2 Saturation ABG Base Excess ABG Hemoglobin ABG Oxyhemoglobin VBG pH ABG Sodium ABG Potassium ABG Glucose Oxyhemoglobin Sodium 129 L Potassium Chloride 95.6 L Carbon Dioxide 17 L BUN 106 H Creatinine 2.5 H Glucose 213 H POC Glucose 242 H Lactic Acid Calcium 7.6 L Ferritin AST Alkaline Phosphatase Magnesium Lactate Dehydrogenase Total Creatine Kinase CK-MB (CK-2) C-Reactive Protein Total Protein 5.0 L Albumin 2.1 L Troponin T HDL Cholesterol Arterial Blood Glucose Urine WBC (Auto) Urine Creatinine Urine Total Protein Coronavirus (PCR) Crossmatch 06/08/20 06/08/20 06/08/20 05:40 11:55 17:54 WBC RBC Hgb Hct MCHC RDW Lymph % (Auto) [place] % (Auto) Eos % (Auto) Lymph # [place] # Lymph # (Auto) [place] # (Auto) Seg Neutrophils % Seg Neuts % (Manual) Lymphocytes % (Manual) Seg Neutrophils # Seg Neutrophils # Man Lymphocytes # (Manual) Monocytes % (Manual) Eosinophils % (Manual) Monocytes # (Manual) Eosinophils # (Manual) D-Dimer Heparin Anti-Xa Level ABG pH POC ABG pCO2 POC ABG pO2 ABG pO2 ABG HCO3 ABG O2 Saturation ABG Base Excess ABG Hemoglobin ABG Oxyhemoglobin VBG pH ABG Sodium ABG Potassium ABG Glucose Oxyhemoglobin Sodium Potassium Chloride Carbon Dioxide BUN Creatinine Glucose POC Glucose 221 H 218 H 163 H Lactic Acid Calcium Ferritin AST Alkaline Phosphatase Magnesium Lactate Dehydrogenase Total Creatine Kinase CK-MB (CK-2) C-Reactive Protein Total Protein Albumin Troponin T HDL Cholesterol Arterial Blood Glucose Urine WBC (Auto) Urine Creatinine Urine Total Protein Coronavirus (PCR) Crossmatch 06/08/20 06/09/20 06/09/20 22:01 00:09 05:16 WBC 19.0 H RBC 3.35 L Hgb 9.2 L Hct 28.5 L MCHC RDW 16.3 H Lymph % (Auto) [place] % (Auto) Eos % (Auto) Lymph # [place] # Lymph # (Auto) [place] # (Auto) Seg Neutrophils % Seg Neuts % (Manual) 85.0 H Lymphocytes % (Manual) 7.0 L Seg Neutrophils # Seg Neutrophils # Man 16.2 H Lymphocytes # (Manual) Monocytes % (Manual) Eosinophils % (Manual) Monocytes # (Manual) 1.3 H Eosinophils # (Manual) D-Dimer Heparin Anti-Xa Level ABG pH POC ABG pCO2 POC ABG pO2 ABG pO2 ABG HCO3 ABG O2 Saturation ABG Base Excess ABG Hemoglobin ABG Oxyhemoglobin VBG pH ABG Sodium ABG Potassium ABG Glucose Oxyhemoglobin Sodium Potassium Chloride Carbon Dioxide BUN Creatinine Glucose POC Glucose 182 H 150 H Lactic Acid Calcium Ferritin AST Alkaline Phosphatase Magnesium Lactate Dehydrogenase Total Creatine Kinase CK-MB (CK-2) C-Reactive Protein Total Protein Albumin Troponin T HDL Cholesterol Arterial Blood Glucose Urine WBC (Auto) Urine Creatinine Urine Total Protein Coronavirus (PCR) Crossmatch 06/09/20 06/09/20 06/09/20 05:16 05:24 11:29 WBC RBC Hgb Hct MCHC RDW Lymph % (Auto) [place] % (Auto) Eos % (Auto) Lymph # [place] # Lymph # (Auto) [place] # (Auto) Seg Neutrophils % Seg Neuts % (Manual) Lymphocytes % (Manual) Seg Neutrophils # Seg Neutrophils # Man Lymphocytes # (Manual) Monocytes % (Manual) Eosinophils % (Manual) Monocytes # (Manual) Eosinophils # (Manual) D-Dimer Heparin Anti-Xa Level ABG pH POC ABG pCO2 POC ABG pO2 ABG pO2 ABG HCO3 ABG O2 Saturation ABG Base Excess ABG Hemoglobin ABG Oxyhemoglobin VBG pH ABG Sodium ABG Potassium ABG Glucose Oxyhemoglobin Sodium 133 L Potassium Chloride Carbon Dioxide 19 L BUN 109 H Creatinine 2.1 H Glucose 133 H POC Glucose 128 H 119 H Lactic Acid Calcium 7.7 L Ferritin AST Alkaline Phosphatase < 5 L Magnesium Lactate Dehydrogenase Total Creatine Kinase CK-MB (CK-2) C-Reactive Protein Total Protein 4.6 L Albumin < 0.2 L Troponin T HDL Cholesterol Arterial Blood Glucose Urine WBC (Auto) Urine Creatinine Urine Total Protein Coronavirus (PCR) Crossmatch 06/09/20 06/10/20 06/10/20 17:32 00:00 05:49 WBC RBC Hgb Hct MCHC RDW Lymph % (Auto) [place] % (Auto) Eos % (Auto) Lymph # [place] # Lymph # (Auto) [place] # (Auto) Seg Neutrophils % Seg Neuts % (Manual) Lymphocytes % (Manual) Seg Neutrophils # Seg Neutrophils # Man Lymphocytes # (Manual) Monocytes % (Manual) Eosinophils % (Manual) Monocytes # (Manual) Eosinophils # (Manual) D-Dimer Heparin Anti-Xa Level 0.19 L ABG pH POC ABG pCO2 POC ABG pO2 ABG pO2 ABG HCO3 ABG O2 Saturation ABG Base Excess ABG Hemoglobin ABG Oxyhemoglobin VBG pH ABG Sodium ABG Potassium ABG Glucose Oxyhemoglobin Sodium Potassium Chloride Carbon Dioxide BUN Creatinine Glucose POC Glucose 106 H 117 H Lactic Acid Calcium Ferritin AST Alkaline Phosphatase Magnesium Lactate Dehydrogenase Total Creatine Kinase CK-MB (CK-2) C-Reactive Protein Total Protein Albumin Troponin T HDL Cholesterol Arterial Blood Glucose Urine WBC (Auto) Urine Creatinine Urine Total Protein Coronavirus (PCR) Crossmatch 06/10/20 06/10/20 06/10/20 05:54 07:40 11:40 WBC RBC Hgb Hct MCHC RDW Lymph % (Auto) [place] % (Auto) Eos % (Auto) Lymph # [place] # Lymph # (Auto) [place] # (Auto) Seg Neutrophils % Seg Neuts % (Manual) Lymphocytes % (Manual) Seg Neutrophils # Seg Neutrophils # Man Lymphocytes # (Manual) Monocytes % (Manual) Eosinophils % (Manual) Monocytes # (Manual) Eosinophils # (Manual) D-Dimer Heparin Anti-Xa Level ABG pH POC ABG pCO2 POC ABG pO2 ABG pO2 ABG HCO3 ABG O2 Saturation ABG Base Excess ABG Hemoglobin ABG Oxyhemoglobin VBG pH ABG Sodium ABG Potassium ABG Glucose Oxyhemoglobin Sodium 146 H D Potassium Chloride Carbon Dioxide 20 L BUN 99 H Creatinine 1.9 H Glucose 121 H POC Glucose 127 H 138 H Lactic Acid Calcium 8.2 L Ferritin AST Alkaline Phosphatase Magnesium Lactate Dehydrogenase Total Creatine Kinase CK-MB (CK-2) C-Reactive Protein Total Protein Albumin Troponin T HDL Cholesterol Arterial Blood Glucose Urine WBC (Auto) Urine Creatinine Urine Total Protein Coronavirus (PCR) Crossmatch 06/10/20 06/10/20 06/10/20 14:44 17:31 23:22 WBC RBC Hgb Hct MCHC RDW Lymph % (Auto) [place] % (Auto) Eos % (Auto) Lymph # [place] # Lymph # (Auto) [place] # (Auto) Seg Neutrophils % Seg Neuts % (Manual) Lymphocytes % (Manual) Seg Neutrophils # Seg Neutrophils # Man Lymphocytes # (Manual) Monocytes % (Manual) Eosinophils % (Manual) Monocytes # (Manual) Eosinophils # (Manual) D-Dimer Heparin Anti-Xa Level 0.17 L ABG pH POC ABG pCO2 POC ABG pO2 ABG pO2 ABG HCO3 ABG O2 Saturation ABG Base Excess ABG Hemoglobin ABG Oxyhemoglobin VBG pH ABG Sodium ABG Potassium ABG Glucose Oxyhemoglobin Sodium Potassium Chloride Carbon Dioxide BUN Creatinine Glucose POC Glucose 128 H 114 H Lactic Acid Calcium Ferritin AST Alkaline Phosphatase Magnesium Lactate Dehydrogenase Total Creatine Kinase CK-MB (CK-2) C-Reactive Protein Total Protein Albumin Troponin T HDL Cholesterol Arterial Blood Glucose Urine WBC (Auto) Urine Creatinine Urine Total Protein Coronavirus (PCR) Crossmatch 06/11/20 06/11/20 06/11/20 00:22 03:45 03:45 WBC 14.6 H RBC 2.77 L Hgb 7.9 L Hct 24.3 L MCHC RDW 16.8 H Lymph % (Auto) 6.6 L [place] % (Auto) 8.5 H Eos % (Auto) Lymph # 1.0 L [place] # 1.2 H Lymph # (Auto) [place] # (Auto) Seg Neutrophils % 82.9 H Seg Neuts % (Manual) Lymphocytes % (Manual) Seg Neutrophils # 12.1 H Seg Neutrophils # Man Lymphocytes # (Manual) Monocytes % (Manual) Eosinophils % (Manual) Monocytes # (Manual) Eosinophils # (Manual) D-Dimer Heparin Anti-Xa Level 0.24 L ABG pH POC ABG pCO2 POC ABG pO2 ABG pO2 ABG HCO3 ABG O2 Saturation ABG Base Excess ABG Hemoglobin ABG Oxyhemoglobin VBG pH ABG Sodium ABG Potassium ABG Glucose Oxyhemoglobin Sodium Potassium Chloride Carbon Dioxide 20 L BUN 88 H Creatinine 1.5 H Glucose 111 H POC Glucose Lactic Acid Calcium 8.2 L Ferritin AST Alkaline Phosphatase Magnesium Lactate Dehydrogenase Total Creatine Kinase CK-MB (CK-2) C-Reactive Protein Total Protein Albumin Troponin T HDL Cholesterol Arterial Blood Glucose Urine WBC (Auto) Urine Creatinine Urine Total Protein Coronavirus (PCR) Crossmatch 06/11/20 06/11/20 06/11/20 06:03 10:22 11:11 WBC RBC Hgb Hct MCHC RDW Lymph % (Auto) [place] % (Auto) Eos % (Auto) Lymph # [place] # Lymph # (Auto) [place] # (Auto) Seg Neutrophils % Seg Neuts % (Manual) Lymphocytes % (Manual) Seg Neutrophils # Seg Neutrophils # Man Lymphocytes # (Manual) Monocytes % (Manual) Eosinophils % (Manual) Monocytes # (Manual) Eosinophils # (Manual) D-Dimer Heparin Anti-Xa Level 0.26 L ABG pH POC ABG pCO2 POC ABG pO2 ABG pO2 ABG HCO3 ABG O2 Saturation ABG Base Excess ABG Hemoglobin 9.6 L ABG Oxyhemoglobin VBG pH ABG Sodium ABG Potassium ABG Glucose Oxyhemoglobin Sodium Potassium Chloride Carbon Dioxide BUN Creatinine Glucose POC Glucose 114 H Lactic Acid Calcium Ferritin AST Alkaline Phosphatase Magnesium Lactate Dehydrogenase Total Creatine Kinase CK-MB (CK-2) C-Reactive Protein Total Protein Albumin Troponin T HDL Cholesterol Arterial Blood Glucose Urine WBC (Auto) Urine Creatinine Urine Total Protein Coronavirus (PCR) Crossmatch 06/11/20 06/11/20 06/12/20 12:24 17:24 00:21 WBC RBC Hgb Hct MCHC RDW Lymph % (Auto) [place] % (Auto) Eos % (Auto) Lymph # [place] # Lymph # (Auto) [place] # (Auto) Seg Neutrophils % Seg Neuts % (Manual) Lymphocytes % (Manual) Seg Neutrophils # Seg Neutrophils # Man Lymphocytes # (Manual) Monocytes % (Manual) Eosinophils % (Manual) Monocytes # (Manual) Eosinophils # (Manual) D-Dimer Heparin Anti-Xa Level ABG pH POC ABG pCO2 POC ABG pO2 ABG pO2 ABG HCO3 ABG O2 Saturation ABG Base Excess ABG Hemoglobin ABG Oxyhemoglobin VBG pH ABG Sodium ABG Potassium ABG Glucose Oxyhemoglobin Sodium Potassium Chloride Carbon Dioxide BUN Creatinine Glucose POC Glucose 119 H 126 H 117 H Lactic Acid Calcium Ferritin AST Alkaline Phosphatase Magnesium Lactate Dehydrogenase Total Creatine Kinase CK-MB (CK-2) C-Reactive Protein Total Protein Albumin Troponin T HDL Cholesterol Arterial Blood Glucose Urine WBC (Auto) Urine Creatinine Urine Total Protein Coronavirus (PCR) Crossmatch 06/12/20 06/12/20 06/12/20 02:46 02:46 05:46 WBC 13.2 H RBC 2.83 L Hgb 8.3 L Hct 24.3 L MCHC RDW 16.6 H Lymph % (Auto) 6.2 L [place] % (Auto) 9.5 H Eos % (Auto) Lymph # 0.8 L [place] # 1.3 H Lymph # (Auto) [place] # (Auto) Seg Neutrophils % 81.9 H Seg Neuts % (Manual) Lymphocytes % (Manual) Seg Neutrophils # 10.9 H Seg Neutrophils # Man Lymphocytes # (Manual) Monocytes % (Manual) Eosinophils % (Manual) Monocytes # (Manual) Eosinophils # (Manual) D-Dimer Heparin Anti-Xa Level ABG pH POC ABG pCO2 POC ABG pO2 ABG pO2 ABG HCO3 ABG O2 Saturation ABG Base Excess ABG Hemoglobin ABG Oxyhemoglobin VBG pH ABG Sodium ABG Potassium ABG Glucose Oxyhemoglobin Sodium Potassium 3.5 L Chloride Carbon Dioxide BUN 77 H Creatinine 1.3 H Glucose POC Glucose 132 H Lactic Acid Calcium 8.3 L Ferritin AST Alkaline Phosphatase Magnesium Lactate Dehydrogenase Total Creatine Kinase CK-MB (CK-2) C-Reactive Protein Total Protein Albumin Troponin T HDL Cholesterol Arterial Blood Glucose Urine WBC (Auto) Urine Creatinine Urine Total Protein Coronavirus (PCR) Crossmatch 06/12/20 06/12/20 06/12/20 09:20 12:16 17:48 WBC RBC Hgb Hct MCHC RDW Lymph % (Auto) [place] % (Auto) Eos % (Auto) Lymph # [place] # Lymph # (Auto) [place] # (Auto) Seg Neutrophils % Seg Neuts % (Manual) Lymphocytes % (Manual) Seg Neutrophils # Seg Neutrophils # Man Lymphocytes # (Manual) Monocytes % (Manual) Eosinophils % (Manual) Monocytes # (Manual) Eosinophils # (Manual) D-Dimer Heparin Anti-Xa Level ABG pH POC ABG pCO2 POC ABG pO2 ABG pO2 91.1 H ABG HCO3 ABG O2 Saturation ABG Base Excess ABG Hemoglobin ABG Oxyhemoglobin VBG pH ABG Sodium ABG Potassium ABG Glucose Oxyhemoglobin 94.8 L Sodium Potassium Chloride Carbon Dioxide BUN Creatinine Glucose POC Glucose 167 H 182 H Lactic Acid Calcium Ferritin AST Alkaline Phosphatase Magnesium Lactate Dehydrogenase Total Creatine Kinase CK-MB (CK-2) C-Reactive Protein Total Protein Albumin Troponin T HDL Cholesterol Arterial Blood Glucose Urine WBC (Auto) Urine Creatinine Urine Total Protein Coronavirus (PCR) Crossmatch 06/13/20 06/13/20 06/13/20 00:08 05:37 09:09 WBC RBC Hgb Hct MCHC RDW Lymph % (Auto) [place] % (Auto) Eos % (Auto) Lymph # [place] # Lymph # (Auto) [place] # (Auto) Seg Neutrophils % Seg Neuts % (Manual) Lymphocytes % (Manual) Seg Neutrophils # Seg Neutrophils # Man Lymphocytes # (Manual) Monocytes % (Manual) Eosinophils % (Manual) Monocytes # (Manual) Eosinophils # (Manual) D-Dimer Heparin Anti-Xa Level 0.86 H ABG pH POC ABG pCO2 POC ABG pO2 ABG pO2 ABG HCO3 ABG O2 Saturation ABG Base Excess ABG Hemoglobin ABG Oxyhemoglobin VBG pH ABG Sodium ABG Potassium ABG Glucose Oxyhemoglobin Sodium Potassium Chloride Carbon Dioxide BUN Creatinine Glucose POC Glucose 142 H 119 H Lactic Acid Calcium Ferritin AST Alkaline Phosphatase Magnesium Lactate Dehydrogenase Total Creatine Kinase CK-MB (CK-2) C-Reactive Protein Total Protein Albumin Troponin T HDL Cholesterol Arterial Blood Glucose Urine WBC (Auto) Urine Creatinine Urine Total Protein Coronavirus (PCR) Crossmatch 06/13/20 06/13/20 06/13/20 12:28 17:55 21:17 WBC RBC Hgb Hct MCHC RDW Lymph % (Auto) [place] % (Auto) Eos % (Auto) Lymph # [place] # Lymph # (Auto) [place] # (Auto) Seg Neutrophils % Seg Neuts % (Manual) Lymphocytes % (Manual) Seg Neutrophils # Seg Neutrophils # Man Lymphocytes # (Manual) Monocytes % (Manual) Eosinophils % (Manual) Monocytes # (Manual) Eosinophils # (Manual) D-Dimer Heparin Anti-Xa Level ABG pH POC ABG pCO2 POC ABG pO2 ABG pO2 ABG HCO3 ABG O2 Saturation ABG Base Excess ABG Hemoglobin ABG Oxyhemoglobin VBG pH ABG Sodium ABG Potassium ABG Glucose Oxyhemoglobin Sodium Potassium Chloride Carbon Dioxide BUN 61 H Creatinine Glucose 131 H POC Glucose 165 H 174 H Lactic Acid Calcium Ferritin AST Alkaline Phosphatase Magnesium Lactate Dehydrogenase Total Creatine Kinase CK-MB (CK-2) C-Reactive Protein Total Protein Albumin Troponin T HDL Cholesterol Arterial Blood Glucose Urine WBC (Auto) Urine Creatinine Urine Total Protein Coronavirus (PCR) Crossmatch 06/13/20 06/13/20 06/14/20 21:17 23:50 05:34 WBC RBC Hgb Hct MCHC RDW Lymph % (Auto) [place] % (Auto) Eos % (Auto) Lymph # [place] # Lymph # (Auto) [place] # (Auto) Seg Neutrophils % Seg Neuts % (Manual) Lymphocytes % (Manual) Seg Neutrophils # Seg Neutrophils # Man Lymphocytes # (Manual) Monocytes % (Manual) Eosinophils % (Manual) Monocytes # (Manual) Eosinophils # (Manual) D-Dimer Heparin Anti-Xa Level 0.72 H ABG pH POC ABG pCO2 POC ABG pO2 ABG pO2 ABG HCO3 ABG O2 Saturation ABG Base Excess ABG Hemoglobin ABG Oxyhemoglobin VBG pH ABG Sodium ABG Potassium ABG Glucose Oxyhemoglobin Sodium 146 H Potassium Chloride 107.6 H Carbon Dioxide BUN 61 H Creatinine 1.3 H Glucose 135 H POC Glucose 146 H Lactic Acid Calcium Ferritin AST Alkaline Phosphatase Magnesium Lactate Dehydrogenase Total Creatine Kinase CK-MB (CK-2) C-Reactive Protein Total Protein Albumin Troponin T HDL Cholesterol Arterial Blood Glucose Urine WBC (Auto) Urine Creatinine Urine Total Protein Coronavirus (PCR) Crossmatch 06/14/20 06/14/20 06/14/20 06:11 09:28 11:30 WBC RBC Hgb Hct MCHC RDW Lymph % (Auto) [place] % (Auto) Eos % (Auto) Lymph # [place] # Lymph # (Auto) [place] # (Auto) Seg Neutrophils % Seg Neuts % (Manual) Lymphocytes % (Manual) Seg Neutrophils # Seg Neutrophils # Man Lymphocytes # (Manual) Monocytes % (Manual) Eosinophils % (Manual) Monocytes # (Manual) Eosinophils # (Manual) D-Dimer Heparin Anti-Xa Level 0.90 H ABG pH POC ABG pCO2 POC ABG pO2 ABG pO2 ABG HCO3 ABG O2 Saturation ABG Base Excess ABG Hemoglobin ABG Oxyhemoglobin VBG pH ABG Sodium ABG Potassium ABG Glucose Oxyhemoglobin Sodium Potassium Chloride Carbon Dioxide BUN Creatinine Glucose POC Glucose 141 H 186 H Lactic Acid Calcium Ferritin AST Alkaline Phosphatase Magnesium Lactate Dehydrogenase Total Creatine Kinase CK-MB (CK-2) C-Reactive Protein Total Protein Albumin Troponin T HDL Cholesterol Arterial Blood Glucose Urine WBC (Auto) Urine Creatinine Urine Total Protein Coronavirus (PCR) Crossmatch 06/14/20 06/14/20 06/14/20 16:07 18:16 23:51 WBC RBC Hgb Hct MCHC RDW Lymph % (Auto) [place] % (Auto) Eos % (Auto) Lymph # [place] # Lymph # (Auto) [place] # (Auto) Seg Neutrophils % Seg Neuts % (Manual) Lymphocytes % (Manual) Seg Neutrophils # Seg Neutrophils # Man Lymphocytes # (Manual) Monocytes % (Manual) Eosinophils % (Manual) Monocytes # (Manual) Eosinophils # (Manual) D-Dimer Heparin Anti-Xa Level 0.82 H ABG pH POC ABG pCO2 POC ABG pO2 ABG pO2 ABG HCO3 ABG O2 Saturation ABG Base Excess ABG Hemoglobin ABG Oxyhemoglobin VBG pH ABG Sodium ABG Potassium ABG Glucose Oxyhemoglobin Sodium Potassium Chloride Carbon Dioxide BUN Creatinine Glucose POC Glucose 106 H 154 H Lactic Acid Calcium Ferritin AST Alkaline Phosphatase Magnesium Lactate Dehydrogenase Total Creatine Kinase CK-MB (CK-2) C-Reactive Protein Total Protein Albumin Troponin T HDL Cholesterol Arterial Blood Glucose Urine WBC (Auto) Urine Creatinine Urine Total Protein Coronavirus (PCR) Crossmatch 06/15/20 06/15/20 06/15/20 04:24 04:24 05:59 WBC RBC 2.75 L Hgb 7.9 L Hct 24.0 L MCHC RDW 16.4 H Lymph % (Auto) 12.9 L [place] % (Auto) 8.7 H Eos % (Auto) 4.6 H Lymph # 1.1 L [place] # Lymph # (Auto) [place] # (Auto) Seg Neutrophils % 73.2 H Seg Neuts % (Manual) Lymphocytes % (Manual) Seg Neutrophils # Seg Neutrophils # Man Lymphocytes # (Manual) Monocytes % (Manual) Eosinophils % (Manual) Monocytes # (Manual) Eosinophils # (Manual) D-Dimer Heparin Anti-Xa Level ABG pH POC ABG pCO2 POC ABG pO2 ABG pO2 ABG HCO3 ABG O2 Saturation ABG Base Excess ABG Hemoglobin ABG Oxyhemoglobin VBG pH ABG Sodium ABG Potassium ABG Glucose Oxyhemoglobin Sodium Potassium 3.4 L Chloride Carbon Dioxide BUN 55 H Creatinine 1.3 H Glucose 142 H POC Glucose 131 H Lactic Acid Calcium Ferritin AST Alkaline Phosphatase Magnesium Lactate Dehydrogenase Total Creatine Kinase CK-MB (CK-2) C-Reactive Protein Total Protein Albumin Troponin T HDL Cholesterol Arterial Blood Glucose Urine WBC (Auto) Urine Creatinine Urine Total Protein Coronavirus (PCR) Crossmatch 06/15/20 06/15/20 06/16/20 12:33 17:07 00:22 WBC RBC Hgb Hct MCHC RDW Lymph % (Auto) [place] % (Auto) Eos % (Auto) Lymph # [place] # Lymph # (Auto) [place] # (Auto) Seg Neutrophils % Seg Neuts % (Manual) Lymphocytes % (Manual) Seg Neutrophils # Seg Neutrophils # Man Lymphocytes # (Manual) Monocytes % (Manual) Eosinophils % (Manual) Monocytes # (Manual) Eosinophils # (Manual) D-Dimer Heparin Anti-Xa Level 0.21 L ABG pH POC ABG pCO2 POC ABG pO2 ABG pO2 ABG HCO3 ABG O2 Saturation ABG Base Excess ABG Hemoglobin ABG Oxyhemoglobin VBG pH ABG Sodium ABG Potassium ABG Glucose Oxyhemoglobin Sodium Potassium Chloride Carbon Dioxide BUN Creatinine Glucose POC Glucose 180 H 185 H Lactic Acid Calcium Ferritin AST Alkaline Phosphatase Magnesium Lactate Dehydrogenase Total Creatine Kinase CK-MB (CK-2) C-Reactive Protein Total Protein Albumin Troponin T HDL Cholesterol Arterial Blood Glucose Urine WBC (Auto) Urine Creatinine Urine Total Protein Coronavirus (PCR) Crossmatch 06/16/20 06/16/20 06/16/20 01:45 08:06 09:15 WBC RBC Hgb Hct MCHC RDW Lymph % (Auto) [place] % (Auto) Eos % (Auto) Lymph # [place] # Lymph # (Auto) [place] # (Auto) Seg Neutrophils % Seg Neuts % (Manual) Lymphocytes % (Manual) Seg Neutrophils # Seg Neutrophils # Man Lymphocytes # (Manual) Monocytes % (Manual) Eosinophils % (Manual) Monocytes # (Manual) Eosinophils # (Manual) D-Dimer Heparin Anti-Xa Level ABG pH POC ABG pCO2 POC ABG pO2 ABG pO2 ABG HCO3 ABG O2 Saturation ABG Base Excess ABG Hemoglobin ABG Oxyhemoglobin VBG pH ABG Sodium ABG Potassium ABG Glucose Oxyhemoglobin Sodium Potassium Chloride Carbon Dioxide BUN 49 H Creatinine Glucose 154 H POC Glucose 140 H 171 H Lactic Acid Calcium Ferritin AST Alkaline Phosphatase Magnesium Lactate Dehydrogenase Total Creatine Kinase CK-MB (CK-2) C-Reactive Protein Total Protein Albumin Troponin T HDL Cholesterol Arterial Blood Glucose Urine WBC (Auto) Urine Creatinine Urine Total Protein Coronavirus (PCR) Crossmatch 06/16/20 06/16/20 06/16/20 10:46 12:33 17:54 WBC RBC Hgb Hct MCHC RDW Lymph % (Auto) [place] % (Auto) Eos % (Auto) Lymph # [place] # Lymph # (Auto) [place] # (Auto) Seg Neutrophils % Seg Neuts % (Manual) Lymphocytes % (Manual) Seg Neutrophils # Seg Neutrophils # Man Lymphocytes # (Manual) Monocytes % (Manual) Eosinophils % (Manual) Monocytes # (Manual) Eosinophils # (Manual) D-Dimer Heparin Anti-Xa Level 0.12 L ABG pH POC ABG pCO2 POC ABG pO2 ABG pO2 ABG HCO3 ABG O2 Saturation ABG Base Excess ABG Hemoglobin ABG Oxyhemoglobin VBG pH ABG Sodium ABG Potassium ABG Glucose Oxyhemoglobin Sodium Potassium Chloride Carbon Dioxide BUN Creatinine Glucose POC Glucose 166 H 151 H Lactic Acid Calcium Ferritin AST Alkaline Phosphatase Magnesium Lactate Dehydrogenase Total Creatine Kinase CK-MB (CK-2) C-Reactive Protein Total Protein Albumin Troponin T HDL Cholesterol Arterial Blood Glucose Urine WBC (Auto) Urine Creatinine Urine Total Protein Coronavirus (PCR) Crossmatch 06/16/20 06/17/20 06/17/20 18:47 00:00 02:19 WBC RBC Hgb Hct MCHC RDW Lymph % (Auto) [place] % (Auto) Eos % (Auto) Lymph # [place] # Lymph # (Auto) [place] # (Auto) Seg Neutrophils % Seg Neuts % (Manual) Lymphocytes % (Manual) Seg Neutrophils # Seg Neutrophils # Man Lymphocytes # (Manual) Monocytes % (Manual) Eosinophils % (Manual) Monocytes # (Manual) Eosinophils # (Manual) D-Dimer Heparin Anti-Xa Level 0.73 H 0.77 H ABG pH POC ABG pCO2 POC ABG pO2 ABG pO2 ABG HCO3 ABG O2 Saturation ABG Base Excess ABG Hemoglobin ABG Oxyhemoglobin VBG pH ABG Sodium ABG Potassium ABG Glucose Oxyhemoglobin Sodium Potassium Chloride Carbon Dioxide BUN Creatinine Glucose POC Glucose 139 H Lactic Acid Calcium Ferritin AST Alkaline Phosphatase Magnesium Lactate Dehydrogenase Total Creatine Kinase CK-MB (CK-2) C-Reactive Protein Total Protein Albumin Troponin T HDL Cholesterol Arterial Blood Glucose Urine WBC (Auto) Urine Creatinine Urine Total Protein Coronavirus (PCR) Crossmatch 06/17/20 06/17/20 06/17/20 06:07 11:42 16:43 WBC RBC Hgb Hct MCHC RDW Lymph % (Auto) [place] % (Auto) Eos % (Auto) Lymph # [place] # Lymph # (Auto) [place] # (Auto) Seg Neutrophils % Seg Neuts % (Manual) Lymphocytes % (Manual) Seg Neutrophils # Seg Neutrophils # Man Lymphocytes # (Manual) Monocytes % (Manual) Eosinophils % (Manual) Monocytes # (Manual) Eosinophils # (Manual) D-Dimer Heparin Anti-Xa Level 0.73 H ABG pH POC ABG pCO2 POC ABG pO2 ABG pO2 ABG HCO3 ABG O2 Saturation ABG Base Excess ABG Hemoglobin ABG Oxyhemoglobin VBG pH ABG Sodium ABG Potassium ABG Glucose Oxyhemoglobin Sodium Potassium Chloride Carbon Dioxide BUN Creatinine Glucose POC Glucose 169 H 169 H Lactic Acid Calcium Ferritin AST Alkaline Phosphatase Magnesium Lactate Dehydrogenase Total Creatine Kinase CK-MB (CK-2) C-Reactive Protein Total Protein Albumin Troponin T HDL Cholesterol Arterial Blood Glucose Urine WBC (Auto) Urine Creatinine Urine Total Protein Coronavirus (PCR) Crossmatch 06/17/20 06/17/20 06/17/20 18:18 23:08 23:16 WBC RBC Hgb Hct MCHC RDW Lymph % (Auto) [place] % (Auto) Eos % (Auto) Lymph # [place] # Lymph # (Auto) [place] # (Auto) Seg Neutrophils % Seg Neuts % (Manual) Lymphocytes % (Manual) Seg Neutrophils # Seg Neutrophils # Man Lymphocytes # (Manual) Monocytes % (Manual) Eosinophils % (Manual) Monocytes # (Manual) Eosinophils # (Manual) D-Dimer Heparin Anti-Xa Level 0.71 H ABG pH POC ABG pCO2 POC ABG pO2 ABG pO2 ABG HCO3 ABG O2 Saturation ABG Base Excess ABG Hemoglobin ABG Oxyhemoglobin VBG pH ABG Sodium ABG Potassium ABG Glucose Oxyhemoglobin Sodium Potassium Chloride Carbon Dioxide BUN Creatinine Glucose POC Glucose 159 H 134 H Lactic Acid Calcium Ferritin AST Alkaline Phosphatase Magnesium Lactate Dehydrogenase Total Creatine Kinase CK-MB (CK-2) C-Reactive Protein Total Protein Albumin Troponin T HDL Cholesterol Arterial Blood Glucose Urine WBC (Auto) Urine Creatinine Urine Total Protein Coronavirus (PCR) Crossmatch 06/18/20 06/18/20 06/18/20 04:42 05:52 11:50 WBC RBC Hgb Hct MCHC RDW Lymph % (Auto) [place] % (Auto) Eos % (Auto) Lymph # [place] # Lymph # (Auto) [place] # (Auto) Seg Neutrophils % Seg Neuts % (Manual) Lymphocytes % (Manual) Seg Neutrophils # Seg Neutrophils # Man Lymphocytes # (Manual) Monocytes % (Manual) Eosinophils % (Manual) Monocytes # (Manual) Eosinophils # (Manual) D-Dimer Heparin Anti-Xa Level ABG pH POC ABG pCO2 POC ABG pO2 ABG pO2 ABG HCO3 ABG O2 Saturation ABG Base Excess ABG Hemoglobin ABG Oxyhemoglobin VBG pH ABG Sodium ABG Potassium ABG Glucose Oxyhemoglobin Sodium Potassium Chloride Carbon Dioxide BUN 44 H Creatinine Glucose 115 H POC Glucose 171 H 167 H Lactic Acid Calcium Ferritin AST Alkaline Phosphatase Magnesium Lactate Dehydrogenase Total Creatine Kinase CK-MB (CK-2) C-Reactive Protein Total Protein Albumin Troponin T HDL Cholesterol Arterial Blood Glucose Urine WBC (Auto) Urine Creatinine Urine Total Protein Coronavirus (PCR) Crossmatch 06/18/20 06/19/20 06/19/20 23:46 05:48 07:52 WBC RBC Hgb Hct MCHC RDW Lymph % (Auto) [place] % (Auto) Eos % (Auto) Lymph # [place] # Lymph # (Auto) [place] # (Auto) Seg Neutrophils % Seg Neuts % (Manual) Lymphocytes % (Manual) Seg Neutrophils # Seg Neutrophils # Man Lymphocytes # (Manual) Monocytes % (Manual) Eosinophils % (Manual) Monocytes # (Manual) Eosinophils # (Manual) D-Dimer Heparin Anti-Xa Level ABG pH POC ABG pCO2 POC ABG pO2 ABG pO2 ABG HCO3 ABG O2 Saturation ABG Base Excess ABG Hemoglobin ABG Oxyhemoglobin VBG pH ABG Sodium ABG Potassium ABG Glucose Oxyhemoglobin Sodium Potassium Chloride Carbon Dioxide BUN Creatinine Glucose POC Glucose 130 H 207 H 175 H Lactic Acid Calcium Ferritin AST Alkaline Phosphatase Magnesium Lactate Dehydrogenase Total Creatine Kinase CK-MB (CK-2) C-Reactive Protein Total Protein Albumin Troponin T HDL Cholesterol Arterial Blood Glucose Urine WBC (Auto) Urine Creatinine Urine Total Protein Coronavirus (PCR) Crossmatch 06/19/20 06/19/20 06/20/20 11:42 22:54 05:17 WBC RBC Hgb Hct MCHC RDW Lymph % (Auto) [place] % (Auto) Eos % (Auto) Lymph # [place] # Lymph # (Auto) [place] # (Auto) Seg Neutrophils % Seg Neuts % (Manual) Lymphocytes % (Manual) Seg Neutrophils # Seg Neutrophils # Man Lymphocytes # (Manual) Monocytes % (Manual) Eosinophils % (Manual) Monocytes # (Manual) Eosinophils # (Manual) D-Dimer Heparin Anti-Xa Level ABG pH POC ABG pCO2 POC ABG pO2 ABG pO2 ABG HCO3 ABG O2 Saturation ABG Base Excess ABG Hemoglobin ABG Oxyhemoglobin VBG pH ABG Sodium ABG Potassium ABG Glucose Oxyhemoglobin Sodium Potassium Chloride Carbon Dioxide BUN Creatinine Glucose POC Glucose 166 H 135 H 218 H Lactic Acid Calcium Ferritin AST Alkaline Phosphatase Magnesium Lactate Dehydrogenase Total Creatine Kinase CK-MB (CK-2) C-Reactive Protein Total Protein Albumin Troponin T HDL Cholesterol Arterial Blood Glucose Urine WBC (Auto) Urine Creatinine Urine Total Protein Coronavirus (PCR) Crossmatch 06/20/20 06/20/20 06/20/20 12:04 16:25 16:35 WBC RBC Hgb Hct MCHC RDW Lymph % (Auto) [place] % (Auto) Eos % (Auto) Lymph # [place] # Lymph # (Auto) [place] # (Auto) Seg Neutrophils % Seg Neuts % (Manual) Lymphocytes % (Manual) Seg Neutrophils # Seg Neutrophils # Man Lymphocytes # (Manual) Monocytes % (Manual) Eosinophils % (Manual) Monocytes # (Manual) Eosinophils # (Manual) D-Dimer Heparin Anti-Xa Level ABG pH POC ABG pCO2 POC ABG pO2 ABG pO2 59.6 L ABG HCO3 28.7 H ABG O2 Saturation 93.5 L ABG Base Excess 3.4 H ABG Hemoglobin 7.2 L ABG Oxyhemoglobin VBG pH ABG Sodium ABG Potassium ABG Glucose Oxyhemoglobin 91.3 L Sodium Potassium Chloride Carbon Dioxide BUN Creatinine Glucose POC Glucose 194 H 137 H Lactic Acid Calcium Ferritin AST Alkaline Phosphatase Magnesium Lactate Dehydrogenase Total Creatine Kinase CK-MB (CK-2) C-Reactive Protein Total Protein Albumin Troponin T HDL Cholesterol Arterial Blood Glucose Urine WBC (Auto) Urine Creatinine Urine Total Protein Coronavirus (PCR) Crossmatch 06/20/20 06/21/20 06/21/20 23:59 06:25 12:01 WBC RBC Hgb Hct MCHC RDW Lymph % (Auto) [place] % (Auto) Eos % (Auto) Lymph # [place] # Lymph # (Auto) [place] # (Auto) Seg Neutrophils % Seg Neuts % (Manual) Lymphocytes % (Manual) Seg Neutrophils # Seg Neutrophils # Man Lymphocytes # (Manual) Monocytes % (Manual) Eosinophils % (Manual) Monocytes # (Manual) Eosinophils # (Manual) D-Dimer Heparin Anti-Xa Level ABG pH POC ABG pCO2 POC ABG pO2 ABG pO2 ABG HCO3 ABG O2 Saturation ABG Base Excess ABG Hemoglobin ABG Oxyhemoglobin VBG pH ABG Sodium ABG Potassium ABG Glucose Oxyhemoglobin Sodium Potassium Chloride Carbon Dioxide BUN Creatinine Glucose POC Glucose 156 H 177 H 195 H Lactic Acid Calcium Ferritin AST Alkaline Phosphatase Magnesium Lactate Dehydrogenase Total Creatine Kinase CK-MB (CK-2) C-Reactive Protein Total Protein Albumin Troponin T HDL Cholesterol Arterial Blood Glucose Urine WBC (Auto) Urine Creatinine Urine Total Protein Coronavirus (PCR) Crossmatch 06/21/20 06/21/20 06/22/20 17:04 21:51 05:06 WBC RBC Hgb Hct MCHC RDW Lymph % (Auto) [place] % (Auto) Eos % (Auto) Lymph # [place] # Lymph # (Auto) [place] # (Auto) Seg Neutrophils % Seg Neuts % (Manual) Lymphocytes % (Manual) Seg Neutrophils # Seg Neutrophils # Man Lymphocytes # (Manual) Monocytes % (Manual) Eosinophils % (Manual) Monocytes # (Manual) Eosinophils # (Manual) D-Dimer Heparin Anti-Xa Level ABG pH POC ABG pCO2 POC ABG pO2 ABG pO2 ABG HCO3 ABG O2 Saturation ABG Base Excess ABG Hemoglobin ABG Oxyhemoglobin VBG pH ABG Sodium ABG Potassium ABG Glucose Oxyhemoglobin Sodium Potassium Chloride Carbon Dioxide BUN Creatinine Glucose POC Glucose 156 H 154 H 167 H Lactic Acid Calcium Ferritin AST Alkaline Phosphatase Magnesium Lactate Dehydrogenase Total Creatine Kinase CK-MB (CK-2) C-Reactive Protein Total Protein Albumin Troponin T HDL Cholesterol Arterial Blood Glucose Urine WBC (Auto) Urine Creatinine Urine Total Protein Coronavirus (PCR) Crossmatch 06/22/20 06/22/20 06/22/20 11:20 15:27 16:58 WBC RBC Hgb Hct MCHC RDW Lymph % (Auto) [place] % (Auto) Eos % (Auto) Lymph # [place] # Lymph # (Auto) [place] # (Auto) Seg Neutrophils % Seg Neuts % (Manual) Lymphocytes % (Manual) Seg Neutrophils # Seg Neutrophils # Man Lymphocytes # (Manual) Monocytes % (Manual) Eosinophils % (Manual) Monocytes # (Manual) Eosinophils # (Manual) D-Dimer Heparin Anti-Xa Level ABG pH 7.206 L POC ABG pCO2 79.9 H POC ABG pO2 ABG pO2 ABG HCO3 ABG O2 Saturation ABG Base Excess ABG Hemoglobin 8.3 L ABG Oxyhemoglobin VBG pH ABG Sodium ABG Potassium ABG Glucose Oxyhemoglobin Sodium Potassium Chloride Carbon Dioxide BUN Creatinine Glucose POC Glucose 181 H 230 H Lactic Acid Calcium Ferritin AST Alkaline Phosphatase Magnesium Lactate Dehydrogenase Total Creatine Kinase CK-MB (CK-2) C-Reactive Protein Total Protein Albumin Troponin T HDL Cholesterol Arterial Blood Glucose Urine WBC (Auto) Urine Creatinine Urine Total Protein Coronavirus (PCR) Crossmatch 06/22/20 06/23/20 06/23/20 22:26 05:49 05:49 WBC RBC 2.58 L Hgb 7.4 L Hct 23.2 L MCHC RDW 17.0 H Lymph % (Auto) [place] % (Auto) 11.2 H Eos % (Auto) Lymph # 1.0 L [place] # Lymph # (Auto) [place] # (Auto) Seg Neutrophils % Seg Neuts % (Manual) Lymphocytes % (Manual) Seg Neutrophils # Seg Neutrophils # Man Lymphocytes # (Manual) Monocytes % (Manual) Eosinophils % (Manual) Monocytes # (Manual) Eosinophils # (Manual) D-Dimer Heparin Anti-Xa Level ABG pH POC ABG pCO2 POC ABG pO2 ABG pO2 ABG HCO3 ABG O2 Saturation ABG Base Excess ABG Hemoglobin ABG Oxyhemoglobin VBG pH ABG Sodium ABG Potassium ABG Glucose Oxyhemoglobin Sodium Potassium Chloride Carbon Dioxide BUN 68 H Creatinine 2.4 H Glucose 198 H POC Glucose 195 H Lactic Acid Calcium Ferritin AST Alkaline Phosphatase Magnesium Lactate Dehydrogenase Total Creatine Kinase CK-MB (CK-2) C-Reactive Protein Total Protein Albumin Troponin T HDL Cholesterol Arterial Blood Glucose Urine WBC (Auto) Urine Creatinine Urine Total Protein Coronavirus (PCR) Crossmatch 06/23/20 06/23/20 06/23/20 05:50 12:29 12:34 WBC RBC Hgb Hct MCHC RDW Lymph % (Auto) [place] % (Auto) Eos % (Auto) Lymph # [place] # Lymph # (Auto) [place] # (Auto) Seg Neutrophils % Seg Neuts % (Manual) Lymphocytes % (Manual) Seg Neutrophils # Seg Neutrophils # Man Lymphocytes # (Manual) Monocytes % (Manual) Eosinophils % (Manual) Monocytes # (Manual) Eosinophils # (Manual) D-Dimer Heparin Anti-Xa Level ABG pH POC ABG pCO2 54.7 H POC ABG pO2 68.8 L ABG pO2 ABG HCO3 ABG O2 Saturation ABG Base Excess ABG Hemoglobin 9.8 L ABG Oxyhemoglobin 92.6 L VBG pH ABG Sodium ABG Potassium ABG Glucose Oxyhemoglobin Sodium Potassium Chloride Carbon Dioxide BUN Creatinine Glucose POC Glucose 202 H 218 H Lactic Acid Calcium Ferritin AST Alkaline Phosphatase Magnesium Lactate Dehydrogenase Total Creatine Kinase CK-MB (CK-2) C-Reactive Protein Total Protein Albumin Troponin T HDL Cholesterol Arterial Blood Glucose Urine WBC (Auto) Urine Creatinine Urine Total Protein Coronavirus (PCR) Crossmatch 06/23/20 06/23/20 06/24/20 16:02 22:22 01:06 WBC RBC Hgb Hct MCHC RDW Lymph % (Auto) [place] % (Auto) Eos % (Auto) Lymph # [place] # Lymph # (Auto) [place] # (Auto) Seg Neutrophils % Seg Neuts % (Manual) Lymphocytes % (Manual) Seg Neutrophils # Seg Neutrophils # Man Lymphocytes # (Manual) Monocytes % (Manual) Eosinophils % (Manual) Monocytes # (Manual) Eosinophils # (Manual) D-Dimer Heparin Anti-Xa Level ABG pH POC ABG pCO2 POC ABG pO2 ABG pO2 ABG HCO3 ABG O2 Saturation ABG Base Excess ABG Hemoglobin ABG Oxyhemoglobin VBG pH ABG Sodium ABG Potassium ABG Glucose Oxyhemoglobin Sodium Potassium Chloride Carbon Dioxide BUN Creatinine Glucose POC Glucose 190 H 166 H 171 H Lactic Acid Calcium Ferritin AST Alkaline Phosphatase Magnesium Lactate Dehydrogenase Total Creatine Kinase CK-MB (CK-2) C-Reactive Protein Total Protein Albumin Troponin T HDL Cholesterol Arterial Blood Glucose Urine WBC (Auto) Urine Creatinine Urine Total Protein Coronavirus (PCR) Crossmatch 06/24/20 06/24/20 06/24/20 04:48 05:35 11:48 WBC RBC Hgb Hct MCHC RDW Lymph % (Auto) [place] % (Auto) Eos % (Auto) Lymph # [place] # Lymph # (Auto) [place] # (Auto) Seg Neutrophils % Seg Neuts % (Manual) Lymphocytes % (Manual) Seg Neutrophils # Seg Neutrophils # Man Lymphocytes # (Manual) Monocytes % (Manual) Eosinophils % (Manual) Monocytes # (Manual) Eosinophils # (Manual) D-Dimer Heparin Anti-Xa Level ABG pH POC ABG pCO2 POC ABG pO2 ABG pO2 ABG HCO3 ABG O2 Saturation ABG Base Excess ABG Hemoglobin ABG Oxyhemoglobin VBG pH ABG Sodium ABG Potassium ABG Glucose Oxyhemoglobin Sodium Potassium Chloride Carbon Dioxide BUN 75 H Creatinine 2.6 H Glucose 179 H POC Glucose 172 H 153 H Lactic Acid Calcium Ferritin AST Alkaline Phosphatase Magnesium Lactate Dehydrogenase Total Creatine Kinase CK-MB (CK-2) C-Reactive Protein Total Protein Albumin Troponin T HDL Cholesterol Arterial Blood Glucose Urine WBC (Auto) Urine Creatinine Urine Total Protein Coronavirus (PCR) Crossmatch 06/24/20 06/24/2020 16:38 21:52 12:00 WBC RBC Hgb Hct MCHC RDW Lymph % (Auto) [place] % (Auto) Eos % (Auto) Lymph # [place] # Lymph # (Auto) [place] # (Auto) Seg Neutrophils % Seg Neuts % (Manual) Lymphocytes % (Manual) Seg Neutrophils # Seg Neutrophils # Man Lymphocytes # (Manual) Monocytes % (Manual) Eosinophils % (Manual) Monocytes # (Manual) Eosinophils # (Manual) D-Dimer Heparin Anti-Xa Level ABG pH POC ABG pCO2 POC ABG pO2 ABG pO2 ABG HCO3 ABG O2 Saturation ABG Base Excess ABG Hemoglobin ABG Oxyhemoglobin VBG pH ABG Sodium ABG Potassium ABG Glucose Oxyhemoglobin Sodium Potassium Chloride Carbon Dioxide BUN Creatinine Glucose POC Glucose 123 H 115 H 203 H Lactic Acid Calcium Ferritin AST Alkaline Phosphatase Magnesium Lactate Dehydrogenase Total Creatine Kinase CK-MB (CK-2) C-Reactive Protein Total Protein Albumin Troponin T HDL Cholesterol Arterial Blood Glucose Urine WBC (Auto) Urine Creatinine Urine Total Protein Coronavirus (PCR) Crossmatch 06/25/20 06/25/20 06/25/20 15:43 16:37 23:02 WBC RBC Hgb Hct MCHC RDW Lymph % (Auto) [place] % (Auto) Eos % (Auto) Lymph # [place] # Lymph # (Auto) [place] # (Auto) Seg Neutrophils % Seg Neuts % (Manual) Lymphocytes % (Manual) Seg Neutrophils # Seg Neutrophils # Man Lymphocytes # (Manual) Monocytes % (Manual) Eosinophils % (Manual) Monocytes # (Manual) Eosinophils # (Manual) D-Dimer Heparin Anti-Xa Level ABG pH POC ABG pCO2 POC ABG pO2 ABG pO2 ABG HCO3 ABG O2 Saturation ABG Base Excess ABG Hemoglobin ABG Oxyhemoglobin VBG pH ABG Sodium ABG Potassium ABG Glucose Oxyhemoglobin Sodium Potassium Chloride Carbon Dioxide BUN 71 H Creatinine 1.8 H Glucose 170 H POC Glucose 191 H 126 H Lactic Acid Calcium 8.2 L Ferritin AST Alkaline Phosphatase Magnesium Lactate Dehydrogenase Total Creatine Kinase CK-MB (CK-2) C-Reactive Protein Total Protein Albumin Troponin T HDL Cholesterol Arterial Blood Glucose Urine WBC (Auto) Urine Creatinine Urine Total Protein Coronavirus (PCR) Crossmatch 06/26/20 06/26/20 06/26/20 06:34 06:34 09:27 WBC RBC 2.41 L Hgb 6.9 L Hct 21.5 L MCHC RDW 16.7 H Lymph % (Auto) 10.9 L [place] % (Auto) 9.6 H Eos % (Auto) Lymph # 0.7 L [place] # Lymph # (Auto) [place] # (Auto) Seg Neutrophils % 75.4 H Seg Neuts % (Manual) Lymphocytes % (Manual) Seg Neutrophils # Seg Neutrophils # Man Lymphocytes # (Manual) Monocytes % (Manual) Eosinophils % (Manual) Monocytes # (Manual) Eosinophils # (Manual) D-Dimer Heparin Anti-Xa Level ABG pH POC ABG pCO2 POC ABG pO2 ABG pO2 ABG HCO3 ABG O2 Saturation ABG Base Excess ABG Hemoglobin ABG Oxyhemoglobin VBG pH ABG Sodium ABG Potassium ABG Glucose Oxyhemoglobin Sodium Potassium Chloride Carbon Dioxide BUN 77 H Creatinine 1.9 H Glucose 190 H POC Glucose Lactic Acid Calcium Ferritin AST Alkaline Phosphatase Magnesium Lactate Dehydrogenase Total Creatine Kinase CK-MB (CK-2) C-Reactive Protein Total Protein Albumin Troponin T HDL Cholesterol Arterial Blood Glucose Urine WBC (Auto) Urine Creatinine Urine Total Protein Coronavirus (PCR) Crossmatch See Detail 06/26/20 06/26/20 06/26/20 12:15 16:28 17:28 WBC RBC Hgb Hct MCHC RDW Lymph % (Auto) [place] % (Auto) Eos % (Auto) Lymph # [place] # Lymph # (Auto) [place] # (Auto) Seg Neutrophils % Seg Neuts % (Manual) Lymphocytes % (Manual) Seg Neutrophils # Seg Neutrophils # Man Lymphocytes # (Manual) Monocytes % (Manual) Eosinophils % (Manual) Monocytes # (Manual) Eosinophils # (Manual) D-Dimer Heparin Anti-Xa Level ABG pH POC ABG pCO2 POC ABG pO2 ABG pO2 ABG HCO3 ABG O2 Saturation ABG Base Excess ABG Hemoglobin ABG Oxyhemoglobin VBG pH ABG Sodium ABG Potassium ABG Glucose Oxyhemoglobin Sodium Potassium Chloride Carbon Dioxide BUN Creatinine Glucose POC Glucose 187 H 149 H 189 H Lactic Acid Calcium Ferritin AST Alkaline Phosphatase Magnesium Lactate Dehydrogenase Total Creatine Kinase CK-MB (CK-2) C-Reactive Protein Total Protein Albumin Troponin T HDL Cholesterol Arterial Blood Glucose Urine WBC (Auto) Urine Creatinine Urine Total Protein Coronavirus (PCR) Crossmatch 06/26/20 06/26/20 06/26/20 18:30 18:30 18:30 WBC RBC 2.87 L Hgb 8.2 L Hct 25.9 L MCHC RDW 17.8 H Lymph % (Auto) [place] % (Auto) Eos % (Auto) Lymph # [place] # Lymph # (Auto) [place] # (Auto) Seg Neutrophils % Seg Neuts % (Manual) 83.0 H Lymphocytes % (Manual) 8.0 L Seg Neutrophils # Seg Neutrophils # Man Lymphocytes # (Manual) 0.6 L Monocytes % (Manual) Eosinophils % (Manual) Monocytes # (Manual) Eosinophils # (Manual) D-Dimer Heparin Anti-Xa Level ABG pH POC ABG pCO2 POC ABG pO2 ABG pO2 ABG HCO3 ABG O2 Saturation ABG Base Excess ABG Hemoglobin ABG Oxyhemoglobin VBG pH ABG Sodium ABG Potassium ABG Glucose Oxyhemoglobin Sodium Potassium Chloride Carbon Dioxide BUN 80 H Creatinine 2.1 H Glucose 260 H POC Glucose Lactic Acid 4.30 H* Calcium 8.3 L Ferritin AST Alkaline Phosphatase Magnesium Lactate Dehydrogenase Total Creatine Kinase CK-MB (CK-2) C-Reactive Protein Total Protein Albumin Troponin T HDL Cholesterol Arterial Blood Glucose Urine WBC (Auto) Urine Creatinine Urine Total Protein Coronavirus (PCR) Crossmatch 06/26/20 06/27/20 06/27/20 18:50 01:00 04:29 WBC RBC Hgb Hct MCHC RDW Lymph % (Auto) [place] % (Auto) Eos % (Auto) Lymph # [place] # Lymph # (Auto) [place] # (Auto) Seg Neutrophils % Seg Neuts % (Manual) Lymphocytes % (Manual) Seg Neutrophils # Seg Neutrophils # Man Lymphocytes # (Manual) Monocytes % (Manual) Eosinophils % (Manual) Monocytes # (Manual) Eosinophils # (Manual) D-Dimer Heparin Anti-Xa Level ABG pH 7.296 L POC ABG pCO2 POC ABG pO2 ABG pO2 116.5 H 200.5 H ABG HCO3 28.4 H ABG O2 Saturation 99.3 H ABG Base Excess 3.7 H ABG Hemoglobin 5.6 L ABG Oxyhemoglobin VBG pH ABG Sodium ABG Potassium ABG Glucose Oxyhemoglobin Sodium Potassium Chloride Carbon Dioxide BUN Creatinine Glucose POC Glucose 123 H Lactic Acid Calcium Ferritin AST Alkaline Phosphatase Magnesium Lactate Dehydrogenase Total Creatine Kinase CK-MB (CK-2) C-Reactive Protein Total Protein Albumin Troponin T HDL Cholesterol Arterial Blood Glucose Urine WBC (Auto) Urine Creatinine Urine Total Protein Coronavirus (PCR) Crossmatch 06/27/20 06/27/20 06/27/20 05:00 05:00 05:00 WBC RBC 2.75 L Hgb 7.9 L Hct 24.3 L MCHC RDW 17.1 H Lymph % (Auto) 8.5 L [place] % (Auto) 12.6 H Eos % (Auto) Lymph # 0.7 L [place] # 1.0 H Lymph # (Auto) [place] # (Auto) Seg Neutrophils % 77.5 H Seg Neuts % (Manual) Lymphocytes % (Manual) Seg Neutrophils # Seg Neutrophils # Man Lymphocytes # (Manual) Monocytes % (Manual) Eosinophils % (Manual) Monocytes # (Manual) Eosinophils # (Manual) D-Dimer Heparin Anti-Xa Level ABG pH POC ABG pCO2 POC ABG pO2 ABG pO2 ABG HCO3 ABG O2 Saturation ABG Base Excess ABG Hemoglobin ABG Oxyhemoglobin VBG pH ABG Sodium ABG Potassium ABG Glucose Oxyhemoglobin Sodium Potassium Chloride Carbon Dioxide BUN 80 H Creatinine 2.0 H Glucose 129 H POC Glucose Lactic Acid 0.60 L Calcium 7.9 L Ferritin AST Alkaline Phosphatase Magnesium Lactate Dehydrogenase Total Creatine Kinase CK-MB (CK-2) C-Reactive Protein Total Protein Albumin Troponin T HDL Cholesterol Arterial Blood Glucose Urine WBC (Auto) Urine Creatinine Urine Total Protein Coronavirus (PCR) Crossmatch 06/27/20 06/27/20 06/27/20 05:23 13:46 17:25 WBC RBC Hgb Hct MCHC RDW Lymph % (Auto) [place] % (Auto) Eos % (Auto) Lymph # [place] # Lymph # (Auto) [place] # (Auto) Seg Neutrophils % Seg Neuts % (Manual) Lymphocytes % (Manual) Seg Neutrophils # Seg Neutrophils # Man Lymphocytes # (Manual) Monocytes % (Manual) Eosinophils % (Manual) Monocytes # (Manual) Eosinophils # (Manual) D-Dimer Heparin Anti-Xa Level ABG pH POC ABG pCO2 POC ABG pO2 ABG pO2 ABG HCO3 ABG O2 Saturation ABG Base Excess ABG Hemoglobin ABG Oxyhemoglobin VBG pH ABG Sodium ABG Potassium ABG Glucose Oxyhemoglobin Sodium Potassium Chloride Carbon Dioxide BUN Creatinine Glucose POC Glucose 109 H 158 H 162 H Lactic Acid Calcium Ferritin AST Alkaline Phosphatase Magnesium Lactate Dehydrogenase Total Creatine Kinase CK-MB (CK-2) C-Reactive Protein Total Protein Albumin Troponin T HDL Cholesterol Arterial Blood Glucose Urine WBC (Auto) Urine Creatinine Urine Total Protein Coronavirus (PCR) Crossmatch 06/27/20 06/27/20 06/28/20 18:43 23:46 04:05 WBC RBC Hgb 7.7 L Hct 22.1 L MCHC RDW Lymph % (Auto) [place] % (Auto) Eos % (Auto) Lymph # [place] # Lymph # (Auto) [place] # (Auto) Seg Neutrophils % Seg Neuts % (Manual) Lymphocytes % (Manual) Seg Neutrophils # Seg Neutrophils # Man Lymphocytes # (Manual) Monocytes % (Manual) Eosinophils % (Manual) Monocytes # (Manual) Eosinophils # (Manual) D-Dimer Heparin Anti-Xa Level ABG pH POC ABG pCO2 POC ABG pO2 ABG pO2 102.7 H ABG HCO3 28.7 H ABG O2 Saturation ABG Base Excess 3.7 H ABG Hemoglobin ABG Oxyhemoglobin VBG pH ABG Sodium ABG Potassium ABG Glucose Oxyhemoglobin Sodium Potassium Chloride Carbon Dioxide BUN Creatinine Glucose POC Glucose 142 H Lactic Acid Calcium Ferritin AST Alkaline Phosphatase Magnesium Lactate Dehydrogenase Total Creatine Kinase CK-MB (CK-2) C-Reactive Protein Total Protein Albumin Troponin T HDL Cholesterol Arterial Blood Glucose Urine WBC (Auto) Urine Creatinine Urine Total Protein Coronavirus (PCR) Crossmatch 06/28/20 06/28/20 06/28/20 09:47 09:47 12:02 WBC RBC 2.53 L Hgb 7.4 L Hct 22.2 L MCHC RDW 16.8 H Lymph % (Auto) [place] % (Auto) 13.5 H Eos % (Auto) Lymph # 1.1 L [place] # 1.0 H Lymph # (Auto) [place] # (Auto) Seg Neutrophils % Seg Neuts % (Manual) Lymphocytes % (Manual) Seg Neutrophils # Seg Neutrophils # Man Lymphocytes # (Manual) Monocytes % (Manual) Eosinophils % (Manual) Monocytes # (Manual) Eosinophils # (Manual) D-Dimer Heparin Anti-Xa Level ABG pH POC ABG pCO2 POC ABG pO2 ABG pO2 ABG HCO3 ABG O2 Saturation ABG Base Excess ABG Hemoglobin ABG Oxyhemoglobin VBG pH ABG Sodium ABG Potassium ABG Glucose Oxyhemoglobin Sodium Potassium Chloride Carbon Dioxide BUN 80 H Creatinine 1.5 H Glucose 139 H POC Glucose 169 H Lactic Acid Calcium 7.9 L Ferritin AST Alkaline Phosphatase Magnesium Lactate Dehydrogenase Total Creatine Kinase CK-MB (CK-2) C-Reactive Protein Total Protein 5.0 L Albumin 2.1 L Troponin T HDL Cholesterol Arterial Blood Glucose Urine WBC (Auto) Urine Creatinine Urine Total Protein Coronavirus (PCR) Crossmatch 06/28/20 06/28/20 06/28/20 12:30 12:30 17:24 WBC RBC 2.38 L Hgb 7.3 L Hct 20.9 L MCHC 35 H RDW 16.7 H Lymph % (Auto) [place] % (Auto) Eos % (Auto) Lymph # [place] # Lymph # (Auto) [place] # (Auto) Seg Neutrophils % Seg Neuts % (Manual) Lymphocytes % (Manual) Seg Neutrophils # Seg Neutrophils # Man Lymphocytes # (Manual) Monocytes % (Manual) Eosinophils % (Manual) Monocytes # (Manual) Eosinophils # (Manual) D-Dimer Heparin Anti-Xa Level ABG pH POC ABG pCO2 POC ABG pO2 ABG pO2 ABG HCO3 ABG O2 Saturation ABG Base Excess ABG Hemoglobin ABG Oxyhemoglobin VBG pH ABG Sodium ABG Potassium ABG Glucose Oxyhemoglobin Sodium Potassium Chloride Carbon Dioxide BUN 74 H Creatinine 1.5 H Glucose 143 H POC Glucose 173 H Lactic Acid Calcium 7.5 L Ferritin AST Alkaline Phosphatase Magnesium Lactate Dehydrogenase Total Creatine Kinase CK-MB (CK-2) C-Reactive Protein Total Protein Albumin Troponin T HDL Cholesterol Arterial Blood Glucose Urine WBC (Auto) Urine Creatinine Urine Total Protein Coronavirus (PCR) Crossmatch 06/29/20 06/29/20 06/29/20 00:02 03:54 04:38 WBC RBC 2.55 L Hgb 7.3 L Hct 22.4 L MCHC RDW 16.4 H Lymph % (Auto) 13.3 L [place] % (Auto) 12.5 H Eos % (Auto) Lymph # 1.1 L [place] # 1.0 H Lymph # (Auto) [place] # (Auto) Seg Neutrophils % Seg Neuts % (Manual) Lymphocytes % (Manual) Seg Neutrophils # Seg Neutrophils # Man Lymphocytes # (Manual) Monocytes % (Manual) Eosinophils % (Manual) Monocytes # (Manual) Eosinophils # (Manual) D-Dimer Heparin Anti-Xa Level ABG pH POC ABG pCO2 POC ABG pO2 ABG pO2 ABG HCO3 26.9 H ABG O2 Saturation ABG Base Excess ABG Hemoglobin 6.9 L ABG Oxyhemoglobin VBG pH ABG Sodium ABG Potassium ABG Glucose Oxyhemoglobin Sodium Potassium Chloride Carbon Dioxide BUN Creatinine Glucose POC Glucose 142 H Lactic Acid Calcium Ferritin AST Alkaline Phosphatase Magnesium Lactate Dehydrogenase Total Creatine Kinase CK-MB (CK-2) C-Reactive Protein Total Protein Albumin Troponin T HDL Cholesterol Arterial Blood Glucose Urine WBC (Auto) Urine Creatinine Urine Total Protein Coronavirus (PCR) Crossmatch 06/29/20 06/29/20 06/29/20 04:38 05:38 12:25 WBC RBC Hgb Hct MCHC RDW Lymph % (Auto) [place] % (Auto) Eos % (Auto) Lymph # [place] # Lymph # (Auto) [place] # (Auto) Seg Neutrophils % Seg Neuts % (Manual) Lymphocytes % (Manual) Seg Neutrophils # Seg Neutrophils # Man Lymphocytes # (Manual) Monocytes % (Manual) Eosinophils % (Manual) Monocytes # (Manual) Eosinophils # (Manual) D-Dimer Heparin Anti-Xa Level ABG pH POC ABG pCO2 POC ABG pO2 ABG pO2 ABG HCO3 ABG O2 Saturation ABG Base Excess ABG Hemoglobin ABG Oxyhemoglobin VBG pH ABG Sodium ABG Potassium ABG Glucose Oxyhemoglobin Sodium Potassium Chloride 107.8 H Carbon Dioxide BUN 72 H Creatinine 1.4 H Glucose 127 H POC Glucose 122 H 138 H Lactic Acid Calcium 7.4 L Ferritin AST Alkaline Phosphatase Magnesium Lactate Dehydrogenase Total Creatine Kinase CK-MB (CK-2) C-Reactive Protein Total Protein Albumin Troponin T HDL Cholesterol Arterial Blood Glucose Urine WBC (Auto) Urine Creatinine Urine Total Protein Coronavirus (PCR) Crossmatch 06/29/20 06/29/20 06/29/20 14:45 14:45 14:45 WBC RBC Hgb Hct MCHC RDW Lymph % (Auto) [place] % (Auto) Eos % (Auto) Lymph # [place] # Lymph # (Auto) [place] # (Auto) Seg Neutrophils % Seg Neuts % (Manual) Lymphocytes % (Manual) Seg Neutrophils # Seg Neutrophils # Man Lymphocytes # (Manual) Monocytes % (Manual) Eosinophils % (Manual) Monocytes # (Manual) Eosinophils # (Manual) D-Dimer 2310.15 H Heparin Anti-Xa Level ABG pH POC ABG pCO2 POC ABG pO2 ABG pO2 ABG HCO3 ABG O2 Saturation ABG Base Excess ABG Hemoglobin ABG Oxyhemoglobin VBG pH ABG Sodium ABG Potassium ABG Glucose Oxyhemoglobin Sodium Potassium Chloride Carbon Dioxide BUN Creatinine Glucose POC Glucose Lactic Acid Calcium Ferritin 223.6 H AST Alkaline Phosphatase Magnesium Lactate Dehydrogenase 367 H Total Creatine Kinase CK-MB (CK-2) C-Reactive Protein 3.60 H Total Protein Albumin Troponin T HDL Cholesterol Arterial Blood Glucose Urine WBC (Auto) Urine Creatinine Urine Total Protein Coronavirus (PCR) Crossmatch 06/29/20 06/29/20 06/29/20 18:27 23:35 Unknown WBC RBC Hgb Hct MCHC RDW Lymph % (Auto) [place] % (Auto) Eos % (Auto) Lymph # [place] # Lymph # (Auto) [place] # (Auto) Seg Neutrophils % Seg Neuts % (Manual) Lymphocytes % (Manual) Seg Neutrophils # Seg Neutrophils # Man Lymphocytes # (Manual) Monocytes % (Manual) Eosinophils % (Manual) Monocytes # (Manual) Eosinophils # (Manual) D-Dimer Heparin Anti-Xa Level ABG pH POC ABG pCO2 POC ABG pO2 ABG pO2 ABG HCO3 ABG O2 Saturation ABG Base Excess ABG Hemoglobin ABG Oxyhemoglobin VBG pH ABG Sodium ABG Potassium ABG Glucose Oxyhemoglobin Sodium Potassium Chloride Carbon Dioxide BUN Creatinine Glucose POC Glucose 112 H 140 H Lactic Acid Calcium Ferritin AST Alkaline Phosphatase Magnesium Lactate Dehydrogenase Total Creatine Kinase CK-MB (CK-2) C-Reactive Protein Total Protein Albumin Troponin T HDL Cholesterol Arterial Blood Glucose Urine WBC (Auto) Urine Creatinine Urine Total Protein Coronavirus (PCR) Positive A Crossmatch 06/30/20 06/30/20 06/30/20 04:10 04:10 06:09 WBC RBC 2.44 L Hgb 7.1 L Hct 21.5 L MCHC RDW 16.6 H Lymph % (Auto) 11.0 L [place] % (Auto) 10.8 H Eos % (Auto) Lymph # 0.9 L [place] # 0.9 H Lymph # (Auto) [place] # (Auto) Seg Neutrophils % 73.7 H Seg Neuts % (Manual) Lymphocytes % (Manual) Seg Neutrophils # Seg Neutrophils # Man Lymphocytes # (Manual) Monocytes % (Manual) Eosinophils % (Manual) Monocytes # (Manual) Eosinophils # (Manual) D-Dimer Heparin Anti-Xa Level ABG pH POC ABG pCO2 POC ABG pO2 ABG pO2 ABG HCO3 ABG O2 Saturation ABG Base Excess ABG Hemoglobin ABG Oxyhemoglobin VBG pH ABG Sodium ABG Potassium ABG Glucose Oxyhemoglobin Sodium Potassium Chloride 109.1 H Carbon Dioxide BUN 74 H Creatinine 1.3 H Glucose 191 H POC Glucose 187 H Lactic Acid Calcium 7.8 L Ferritin AST Alkaline Phosphatase Magnesium Lactate Dehydrogenase Total Creatine Kinase CK-MB (CK-2) C-Reactive Protein Total Protein Albumin Troponin T HDL Cholesterol Arterial Blood Glucose Urine WBC (Auto) Urine Creatinine Urine Total Protein Coronavirus (PCR) Crossmatch 06/30/20 06/30/20 06/30/20 12:04 17:43 23:41 WBC RBC Hgb Hct MCHC RDW Lymph % (Auto) [place] % (Auto) Eos % (Auto) Lymph # [place] # Lymph # (Auto) [place] # (Auto) Seg Neutrophils % Seg Neuts % (Manual) Lymphocytes % (Manual) Seg Neutrophils # Seg Neutrophils # Man Lymphocytes # (Manual) Monocytes % (Manual) Eosinophils % (Manual) Monocytes # (Manual) Eosinophils # (Manual) D-Dimer Heparin Anti-Xa Level ABG pH POC ABG pCO2 POC ABG pO2 ABG pO2 ABG HCO3 ABG O2 Saturation ABG Base Excess ABG Hemoglobin ABG Oxyhemoglobin VBG pH ABG Sodium ABG Potassium ABG Glucose Oxyhemoglobin Sodium Potassium Chloride Carbon Dioxide BUN Creatinine Glucose POC Glucose 112 H 177 H 143 H Lactic Acid Calcium Ferritin AST Alkaline Phosphatase Magnesium Lactate Dehydrogenase Total Creatine Kinase CK-MB (CK-2) C-Reactive Protein Total Protein Albumin Troponin T HDL Cholesterol Arterial Blood Glucose Urine WBC (Auto) Urine Creatinine Urine Total Protein Coronavirus (PCR) Crossmatch 07/01/20 07/01/20 07/01/20 05:02 05:52 06:01 WBC 12.6 H RBC 2.95 L Hgb 8.2 L Hct 26.0 L MCHC RDW 16.9 H Lymph % (Auto) [place] % (Auto) Eos % (Auto) Lymph # [place] # Lymph # (Auto) [place] # (Auto) Seg Neutrophils % Seg Neuts % (Manual) Lymphocytes % (Manual) Seg Neutrophils # Seg Neutrophils # Man 8.6 H Lymphocytes # (Manual) Monocytes % (Manual) Eosinophils % (Manual) 5.0 H Monocytes # (Manual) Eosinophils # (Manual) 0.6 H D-Dimer Heparin Anti-Xa Level ABG pH POC ABG pCO2 POC ABG pO2 ABG pO2 ABG HCO3 ABG O2 Saturation ABG Base Excess ABG Hemoglobin 8.2 L ABG Oxyhemoglobin VBG pH ABG Sodium ABG Potassium ABG Glucose Oxyhemoglobin Sodium Potassium Chloride Carbon Dioxide BUN Creatinine Glucose POC Glucose 129 H Lactic Acid Calcium Ferritin AST Alkaline Phosphatase Magnesium Lactate Dehydrogenase Total Creatine Kinase CK-MB (CK-2) C-Reactive Protein Total Protein Albumin Troponin T HDL Cholesterol Arterial Blood Glucose Urine WBC (Auto) Urine Creatinine Urine Total Protein Coronavirus (PCR) Crossmatch 07/01/20 07/01/20 07/01/20 06:01 06:01 06:08 WBC RBC Hgb Hct MCHC RDW Lymph % (Auto) [place] % (Auto) Eos % (Auto) Lymph # [place] # Lymph # (Auto) [place] # (Auto) Seg Neutrophils % Seg Neuts % (Manual) Lymphocytes % (Manual) Seg Neutrophils # Seg Neutrophils # Man Lymphocytes # (Manual) Monocytes % (Manual) Eosinophils % (Manual) Monocytes # (Manual) Eosinophils # (Manual) D-Dimer Heparin Anti-Xa Level ABG pH POC ABG pCO2 POC ABG pO2 ABG pO2 ABG HCO3 ABG O2 Saturation ABG Base Excess ABG Hemoglobin ABG Oxyhemoglobin VBG pH ABG Sodium ABG Potassium ABG Glucose Oxyhemoglobin Sodium 147 H Potassium Chloride 108.0 H Carbon Dioxide BUN 71 H Creatinine 1.3 H Glucose 193 H POC Glucose 192 H Lactic Acid Calcium 8.1 L Ferritin AST Alkaline Phosphatase Magnesium Lactate Dehydrogenase Total Creatine Kinase 300 H CK-MB (CK-2) C-Reactive Protein Total Protein Albumin Troponin T 0.067 H HDL Cholesterol 61 H Arterial Blood Glucose Urine WBC (Auto) Urine Creatinine Urine Total Protein Coronavirus (PCR) Crossmatch 07/01/20 07/01/20 07/02/20 12:23 17:40 00:18 WBC RBC Hgb Hct MCHC RDW Lymph % (Auto) [place] % (Auto) Eos % (Auto) Lymph # [place] # Lymph # (Auto) [place] # (Auto) Seg Neutrophils % Seg Neuts % (Manual) Lymphocytes % (Manual) Seg Neutrophils # Seg Neutrophils # Man Lymphocytes # (Manual) Monocytes % (Manual) Eosinophils % (Manual) Monocytes # (Manual) Eosinophils # (Manual) D-Dimer Heparin Anti-Xa Level ABG pH POC ABG pCO2 POC ABG pO2 ABG pO2 ABG HCO3 ABG O2 Saturation ABG Base Excess ABG Hemoglobin ABG Oxyhemoglobin VBG pH ABG Sodium ABG Potassium ABG Glucose Oxyhemoglobin Sodium Potassium Chloride Carbon Dioxide BUN Creatinine Glucose POC Glucose 111 H 135 H 145 H Lactic Acid Calcium Ferritin AST Alkaline Phosphatase Magnesium Lactate Dehydrogenase Total Creatine Kinase CK-MB (CK-2) C-Reactive Protein Total Protein Albumin Troponin T HDL Cholesterol Arterial Blood Glucose Urine WBC (Auto) Urine Creatinine Urine Total Protein Coronavirus (PCR) Crossmatch 07/02/20 07/02/20 07/02/20 04:11 04:23 05:54 WBC RBC Hgb Hct MCHC RDW Lymph % (Auto) [place] % (Auto) Eos % (Auto) Lymph # [place] # Lymph # (Auto) [place] # (Auto) Seg Neutrophils % Seg Neuts % (Manual) Lymphocytes % (Manual) Seg Neutrophils # Seg Neutrophils # Man Lymphocytes # (Manual) Monocytes % (Manual) Eosinophils % (Manual) Monocytes # (Manual) Eosinophils # (Manual) D-Dimer Heparin Anti-Xa Level ABG pH POC ABG pCO2 POC ABG pO2 ABG pO2 ABG HCO3 ABG O2 Saturation ABG Base Excess ABG Hemoglobin 5.4 L ABG Oxyhemoglobin VBG pH ABG Sodium ABG Potassium ABG Glucose Oxyhemoglobin Sodium Potassium Chloride 108.6 H Carbon Dioxide BUN 72 H Creatinine Glucose 112 H POC Glucose 137 H Lactic Acid Calcium 7.8 L Ferritin AST Alkaline Phosphatase Magnesium Lactate Dehydrogenase Total Creatine Kinase CK-MB (CK-2) C-Reactive Protein Total Protein Albumin Troponin T HDL Cholesterol Arterial Blood Glucose Urine WBC (Auto) Urine Creatinine Urine Total Protein Coronavirus (PCR) Crossmatch 07/02/20 07/02/20 07/02/20 11:38 18:04 23:59 WBC RBC Hgb Hct MCHC RDW Lymph % (Auto) [place] % (Auto) Eos % (Auto) Lymph # [place] # Lymph # (Auto) [place] # (Auto) Seg Neutrophils % Seg Neuts % (Manual) Lymphocytes % (Manual) Seg Neutrophils # Seg Neutrophils # Man Lymphocytes # (Manual) Monocytes % (Manual) Eosinophils % (Manual) Monocytes # (Manual) Eosinophils # (Manual) D-Dimer Heparin Anti-Xa Level ABG pH POC ABG pCO2 POC ABG pO2 ABG pO2 ABG HCO3 ABG O2 Saturation ABG Base Excess ABG Hemoglobin ABG Oxyhemoglobin VBG pH ABG Sodium ABG Potassium ABG Glucose Oxyhemoglobin Sodium Potassium Chloride Carbon Dioxide BUN Creatinine Glucose POC Glucose 128 H 135 H 156 H Lactic Acid Calcium Ferritin AST Alkaline Phosphatase Magnesium Lactate Dehydrogenase Total Creatine Kinase CK-MB (CK-2) C-Reactive Protein Total Protein Albumin Troponin T HDL Cholesterol Arterial Blood Glucose Urine WBC (Auto) Urine Creatinine Urine Total Protein Coronavirus (PCR) Crossmatch 07/03/20 07/03/20 07/03/20 03:49 06:00 11:31 WBC RBC Hgb Hct MCHC RDW Lymph % (Auto) [place] % (Auto) Eos % (Auto) Lymph # [place] # Lymph # (Auto) [place] # (Auto) Seg Neutrophils % Seg Neuts % (Manual) Lymphocytes % (Manual) Seg Neutrophils # Seg Neutrophils # Man Lymphocytes # (Manual) Monocytes % (Manual) Eosinophils % (Manual) Monocytes # (Manual) Eosinophils # (Manual) D-Dimer Heparin Anti-Xa Level ABG pH POC ABG pCO2 POC ABG pO2 ABG pO2 121.0 H ABG HCO3 ABG O2 Saturation ABG Base Excess ABG Hemoglobin 8.5 L ABG Oxyhemoglobin VBG pH ABG Sodium ABG Potassium ABG Glucose Oxyhemoglobin Sodium Potassium Chloride Carbon Dioxide BUN Creatinine Glucose POC Glucose 135 H 141 H Lactic Acid Calcium Ferritin AST Alkaline Phosphatase Magnesium Lactate Dehydrogenase Total Creatine Kinase CK-MB (CK-2) C-Reactive Protein Total Protein Albumin Troponin T HDL Cholesterol Arterial Blood Glucose Urine WBC (Auto) Urine Creatinine Urine Total Protein Coronavirus (PCR) Crossmatch 07/03/20 07/03/20 07/04/20 16:07 17:40 05:49 WBC RBC Hgb Hct MCHC RDW Lymph % (Auto) [place] % (Auto) Eos % (Auto) Lymph # [place] # Lymph # (Auto) [place] # (Auto) Seg Neutrophils % Seg Neuts % (Manual) Lymphocytes % (Manual) Seg Neutrophils # Seg Neutrophils # Man Lymphocytes # (Manual) Monocytes % (Manual) Eosinophils % (Manual) Monocytes # (Manual) Eosinophils # (Manual) D-Dimer Heparin Anti-Xa Level ABG pH POC ABG pCO2 POC ABG pO2 ABG pO2 126.9 H ABG HCO3 ABG O2 Saturation ABG Base Excess ABG Hemoglobin 8.1 L ABG Oxyhemoglobin VBG pH ABG Sodium ABG Potassium ABG Glucose Oxyhemoglobin Sodium Potassium Chloride Carbon Dioxide BUN Creatinine Glucose POC Glucose 120 H 128 H Lactic Acid Calcium Ferritin AST Alkaline Phosphatase Magnesium Lactate Dehydrogenase Total Creatine Kinase CK-MB (CK-2) C-Reactive Protein Total Protein Albumin Troponin T HDL Cholesterol Arterial Blood Glucose Urine WBC (Auto) Urine Creatinine Urine Total Protein Coronavirus (PCR) Crossmatch 07/04/20 07/04/20 07/05/20 11:54 18:00 00:07 WBC RBC Hgb Hct MCHC RDW Lymph % (Auto) [place] % (Auto) Eos % (Auto) Lymph # [place] # Lymph # (Auto) [place] # (Auto) Seg Neutrophils % Seg Neuts % (Manual) Lymphocytes % (Manual) Seg Neutrophils # Seg Neutrophils # Man Lymphocytes # (Manual) Monocytes % (Manual) Eosinophils % (Manual) Monocytes # (Manual) Eosinophils # (Manual) D-Dimer Heparin Anti-Xa Level ABG pH POC ABG pCO2 POC ABG pO2 ABG pO2 ABG HCO3 ABG O2 Saturation ABG Base Excess ABG Hemoglobin ABG Oxyhemoglobin VBG pH ABG Sodium ABG Potassium ABG Glucose Oxyhemoglobin Sodium Potassium Chloride Carbon Dioxide BUN Creatinine Glucose POC Glucose 168 H 133 H 121 H Lactic Acid Calcium Ferritin AST Alkaline Phosphatase Magnesium Lactate Dehydrogenase Total Creatine Kinase CK-MB (CK-2) C-Reactive Protein Total Protein Albumin Troponin T HDL Cholesterol Arterial Blood Glucose Urine WBC (Auto) Urine Creatinine Urine Total Protein Coronavirus (PCR) Crossmatch 07/05/20 07/05/20 07/05/20 01:12 02:30 12:09 WBC RBC 2.35 L Hgb 6.9 L Hct 21.1 L MCHC RDW 16.8 H Lymph % (Auto) [place] % (Auto) Eos % (Auto) Lymph # [place] # Lymph # (Auto) [place] # (Auto) Seg Neutrophils % Seg Neuts % (Manual) 74.0 H Lymphocytes % (Manual) 12.0 L Seg Neutrophils # Seg Neutrophils # Man 8.0 H Lymphocytes # (Manual) Monocytes % (Manual) 9.0 H Eosinophils % (Manual) Monocytes # (Manual) 1.0 H Eosinophils # (Manual) D-Dimer Heparin Anti-Xa Level ABG pH POC ABG pCO2 POC ABG pO2 ABG pO2 ABG HCO3 ABG O2 Saturation ABG Base Excess ABG Hemoglobin ABG Oxyhemoglobin VBG pH ABG Sodium ABG Potassium ABG Glucose Oxyhemoglobin Sodium Potassium Chloride Carbon Dioxide BUN Creatinine Glucose POC Glucose 132 H Lactic Acid Calcium Ferritin AST Alkaline Phosphatase Magnesium Lactate Dehydrogenase Total Creatine Kinase CK-MB (CK-2) C-Reactive Protein Total Protein Albumin Troponin T HDL Cholesterol Arterial Blood Glucose Urine WBC (Auto) Urine Creatinine Urine Total Protein Coronavirus (PCR) Crossmatch See Detail 07/05/20 07/05/20 07/05/20 13:05 18:04 23:13 WBC RBC 2.57 L Hgb 7.7 L Hct 23.0 L MCHC RDW 16.9 H Lymph % (Auto) [place] % (Auto) Eos % (Auto) Lymph # [place] # Lymph # (Auto) [place] # (Auto) Seg Neutrophils % Seg Neuts % (Manual) Lymphocytes % (Manual) Seg Neutrophils # Seg Neutrophils # Man Lymphocytes # (Manual) Monocytes % (Manual) Eosinophils % (Manual) Monocytes # (Manual) Eosinophils # (Manual) D-Dimer Heparin Anti-Xa Level ABG pH 7.32 L POC ABG pCO2 POC ABG pO2 ABG pO2 78.3 L ABG HCO3 ABG O2 Saturation ABG Base Excess -2.6 L ABG Hemoglobin 7.3 L ABG Oxyhemoglobin VBG pH ABG Sodium ABG Potassium ABG Glucose Oxyhemoglobin Sodium Potassium Chloride Carbon Dioxide BUN Creatinine Glucose POC Glucose 160 H Lactic Acid Calcium Ferritin AST Alkaline Phosphatase Magnesium Lactate Dehydrogenase Total Creatine Kinase CK-MB (CK-2) C-Reactive Protein Total Protein Albumin Troponin T HDL Cholesterol Arterial Blood Glucose Urine WBC (Auto) Urine Creatinine Urine Total Protein Coronavirus (PCR) Crossmatch 07/05/20 07/05/20 07/06/20 23:13 23:43 13:20 WBC RBC Hgb Hct MCHC RDW Lymph % (Auto) [place] % (Auto) Eos % (Auto) Lymph # [place] # Lymph # (Auto) [place] # (Auto) Seg Neutrophils % Seg Neuts % (Manual) Lymphocytes % (Manual) Seg Neutrophils # Seg Neutrophils # Man Lymphocytes # (Manual) Monocytes % (Manual) Eosinophils % (Manual) Monocytes # (Manual) Eosinophils # (Manual) D-Dimer Heparin Anti-Xa Level ABG pH POC ABG pCO2 POC ABG pO2 ABG pO2 ABG HCO3 ABG O2 Saturation ABG Base Excess ABG Hemoglobin ABG Oxyhemoglobin VBG pH ABG Sodium ABG Potassium ABG Glucose Oxyhemoglobin Sodium Potassium Chloride Carbon Dioxide 20 L BUN 80 H Creatinine 2.4 H D Glucose 124 H POC Glucose 121 H Lactic Acid Calcium 7.6 L Ferritin AST Alkaline Phosphatase Magnesium Lactate Dehydrogenase Total Creatine Kinase CK-MB (CK-2) C-Reactive Protein Total Protein Albumin Troponin T HDL Cholesterol Arterial Blood Glucose Urine WBC (Auto) Urine Creatinine 33.3 H Urine Total Protein Coronavirus (PCR) Crossmatch 07/06/20 07/06/20 07/07/20 14:48 17:28 00:12 WBC RBC Hgb Hct MCHC RDW Lymph % (Auto) [place] % (Auto) Eos % (Auto) Lymph # [place] # Lymph # (Auto) [place] # (Auto) Seg Neutrophils % Seg Neuts % (Manual) Lymphocytes % (Manual) Seg Neutrophils # Seg Neutrophils # Man Lymphocytes # (Manual) Monocytes % (Manual) Eosinophils % (Manual) Monocytes # (Manual) Eosinophils # (Manual) D-Dimer Heparin Anti-Xa Level ABG pH POC ABG pCO2 POC ABG pO2 ABG pO2 ABG HCO3 ABG O2 Saturation ABG Base Excess ABG Hemoglobin ABG Oxyhemoglobin VBG pH ABG Sodium ABG Potassium ABG Glucose Oxyhemoglobin Sodium 136 L Potassium 5.5 H Chloride Carbon Dioxide 19 L BUN 82 H Creatinine 2.5 H Glucose 113 H POC Glucose 133 H 154 H Lactic Acid Calcium 7.7 L Ferritin AST Alkaline Phosphatase Magnesium Lactate Dehydrogenase Total Creatine Kinase CK-MB (CK-2) C-Reactive Protein Total Protein Albumin Troponin T HDL Cholesterol Arterial Blood Glucose Urine WBC (Auto) Urine Creatinine Urine Total Protein Coronavirus (PCR) Crossmatch 07/07/20 07/07/20 07/07/20 04:15 04:15 05:31 WBC RBC 2.28 L Hgb 6.8 L Hct 20.7 L MCHC RDW 16.8 H Lymph % (Auto) [place] % (Auto) Eos % (Auto) Lymph # [place] # Lymph # (Auto) [place] # (Auto) Seg Neutrophils % Seg Neuts % (Manual) Lymphocytes % (Manual) 13.0 L Seg Neutrophils # Seg Neutrophils # Man Lymphocytes # (Manual) 1.0 L Monocytes % (Manual) 11.0 H Eosinophils % (Manual) Monocytes # (Manual) 0.9 H Eosinophils # (Manual) D-Dimer Heparin Anti-Xa Level ABG pH POC ABG pCO2 POC ABG pO2 ABG pO2 ABG HCO3 ABG O2 Saturation ABG Base Excess ABG Hemoglobin ABG Oxyhemoglobin VBG pH ABG Sodium ABG Potassium ABG Glucose Oxyhemoglobin Sodium Potassium Chloride Carbon Dioxide BUN Creatinine Glucose POC Glucose 135 H Lactic Acid Calcium Ferritin AST Alkaline Phosphatase Magnesium 2.50 H Lactate Dehydrogenase Total Creatine Kinase CK-MB (CK-2) C-Reactive Protein Total Protein Albumin Troponin T HDL Cholesterol Arterial Blood Glucose Urine WBC (Auto) Urine Creatinine Urine Total Protein Coronavirus (PCR) Crossmatch 07/07/20 07/07/20 07/07/20 12:31 13:22 17:55 WBC RBC Hgb Hct MCHC RDW Lymph % (Auto) [place] % (Auto) Eos % (Auto) Lymph # [place] # Lymph # (Auto) [place] # (Auto) Seg Neutrophils % Seg Neuts % (Manual) Lymphocytes % (Manual) Seg Neutrophils # Seg Neutrophils # Man Lymphocytes # (Manual) Monocytes % (Manual) Eosinophils % (Manual) Monocytes # (Manual) Eosinophils # (Manual) D-Dimer Heparin Anti-Xa Level ABG pH POC ABG pCO2 POC ABG pO2 ABG pO2 ABG HCO3 ABG O2 Saturation ABG Base Excess ABG Hemoglobin ABG Oxyhemoglobin VBG pH ABG Sodium ABG Potassium ABG Glucose Oxyhemoglobin Sodium Potassium 5.6 H Chloride Carbon Dioxide BUN 86 H Creatinine 2.9 H Glucose 127 H POC Glucose 131 H 136 H Lactic Acid Calcium 8.1 L Ferritin AST Alkaline Phosphatase Magnesium Lactate Dehydrogenase Total Creatine Kinase CK-MB (CK-2) C-Reactive Protein Total Protein Albumin Troponin T HDL Cholesterol Arterial Blood Glucose Urine WBC (Auto) Urine Creatinine Urine Total Protein Coronavirus (PCR) Crossmatch 07/07/20 07/08/20 07/08/20 23:33 04:14 04:14 WBC RBC 3.28 L Hgb 9.7 L Hct 28.9 L D MCHC RDW 16.4 H Lymph % (Auto) 10.3 L [place] % (Auto) 10.0 H Eos % (Auto) Lymph # [place] # Lymph # (Auto) 1.1 L [place] # (Auto) 1.1 H Seg Neutrophils % 77.2 H Seg Neuts % (Manual) Lymphocytes % (Manual) Seg Neutrophils # 8.2 H Seg Neutrophils # Man Lymphocytes # (Manual) Monocytes % (Manual) Eosinophils % (Manual) Monocytes # (Manual) Eosinophils # (Manual) D-Dimer Heparin Anti-Xa Level ABG pH POC ABG pCO2 POC ABG pO2 ABG pO2 ABG HCO3 ABG O2 Saturation ABG Base Excess ABG Hemoglobin ABG Oxyhemoglobin VBG pH ABG Sodium ABG Potassium ABG Glucose Oxyhemoglobin Sodium 136 L Potassium Chloride Carbon Dioxide BUN 84 H Creatinine 2.8 H Glucose 109 H POC Glucose 159 H Lactic Acid Calcium 8.1 L Ferritin AST Alkaline Phosphatase Magnesium 2.50 H Lactate Dehydrogenase Total Creatine Kinase CK-MB (CK-2) C-Reactive Protein Total Protein Albumin Troponin T HDL Cholesterol Arterial Blood Glucose Urine WBC (Auto) Urine Creatinine Urine Total Protein Coronavirus (PCR) Crossmatch 07/08/20 07/08/20 07/08/20 12:10 18:10 23:50 WBC RBC Hgb Hct MCHC RDW Lymph % (Auto) [place] % (Auto) Eos % (Auto) Lymph # [place] # Lymph # (Auto) [place] # (Auto) Seg Neutrophils % Seg Neuts % (Manual) Lymphocytes % (Manual) Seg Neutrophils # Seg Neutrophils # Man Lymphocytes # (Manual) Monocytes % (Manual) Eosinophils % (Manual) Monocytes # (Manual) Eosinophils # (Manual) D-Dimer Heparin Anti-Xa Level ABG pH POC ABG pCO2 POC ABG pO2 ABG pO2 ABG HCO3 ABG O2 Saturation ABG Base Excess ABG Hemoglobin ABG Oxyhemoglobin VBG pH ABG Sodium ABG Potassium ABG Glucose Oxyhemoglobin Sodium Potassium Chloride Carbon Dioxide BUN Creatinine Glucose POC Glucose 108 H 125 H 141 H Lactic Acid Calcium Ferritin AST Alkaline Phosphatase Magnesium Lactate Dehydrogenase Total Creatine Kinase CK-MB (CK-2) C-Reactive Protein Total Protein Albumin Troponin T HDL Cholesterol Arterial Blood Glucose Urine WBC (Auto) Urine Creatinine Urine Total Protein Coronavirus (PCR) Crossmatch 07/09/20 07/09/20 07/09/20 05:39 11:57 17:56 WBC RBC Hgb Hct MCHC RDW Lymph % (Auto) [place] % (Auto) Eos % (Auto) Lymph # [place] # Lymph # (Auto) [place] # (Auto) Seg Neutrophils % Seg Neuts % (Manual) Lymphocytes % (Manual) Seg Neutrophils # Seg Neutrophils # Man Lymphocytes # (Manual) Monocytes % (Manual) Eosinophils % (Manual) Monocytes # (Manual) Eosinophils # (Manual) D-Dimer Heparin Anti-Xa Level ABG pH POC ABG pCO2 POC ABG pO2 ABG pO2 ABG HCO3 ABG O2 Saturation ABG Base Excess ABG Hemoglobin ABG Oxyhemoglobin VBG pH ABG Sodium ABG Potassium ABG Glucose Oxyhemoglobin Sodium Potassium Chloride Carbon Dioxide BUN Creatinine Glucose POC Glucose 121 H 123 H 119 H Lactic Acid Calcium Ferritin AST Alkaline Phosphatase Magnesium Lactate Dehydrogenase Total Creatine Kinase CK-MB (CK-2) C-Reactive Protein Total Protein Albumin Troponin T HDL Cholesterol Arterial Blood Glucose Urine WBC (Auto) Urine Creatinine Urine Total Protein Coronavirus (PCR) Crossmatch 07/10/20 07/10/20 07/10/20 00:29 05:50 10:41 WBC RBC 3.11 L Hgb 9.2 L Hct 27.6 L MCHC RDW 16.6 H Lymph % (Auto) [place] % (Auto) Eos % (Auto) Lymph # [place] # Lymph # (Auto) [place] # (Auto) Seg Neutrophils % Seg Neuts % (Manual) 78.0 H Lymphocytes % (Manual) 11.0 L Seg Neutrophils # Seg Neutrophils # Man Lymphocytes # (Manual) 1.0 L Monocytes % (Manual) Eosinophils % (Manual) Monocytes # (Manual) Eosinophils # (Manual) D-Dimer Heparin Anti-Xa Level ABG pH POC ABG pCO2 POC ABG pO2 ABG pO2 ABG HCO3 ABG O2 Saturation ABG Base Excess ABG Hemoglobin ABG Oxyhemoglobin VBG pH ABG Sodium ABG Potassium ABG Glucose Oxyhemoglobin Sodium Potassium Chloride Carbon Dioxide BUN Creatinine Glucose POC Glucose 122 H 124 H Lactic Acid Calcium Ferritin AST Alkaline Phosphatase Magnesium Lactate Dehydrogenase Total Creatine Kinase CK-MB (CK-2) C-Reactive Protein Total Protein Albumin Troponin T HDL Cholesterol Arterial Blood Glucose Urine WBC (Auto) Urine Creatinine Urine Total Protein Coronavirus (PCR) Crossmatch 07/10/20 07/10/20 07/10/20 10:41 12:25 18:10 WBC RBC Hgb Hct MCHC RDW Lymph % (Auto) [place] % (Auto) Eos % (Auto) Lymph # [place] # Lymph # (Auto) [place] # (Auto) Seg Neutrophils % Seg Neuts % (Manual) Lymphocytes % (Manual) Seg Neutrophils # Seg Neutrophils # Man Lymphocytes # (Manual) Monocytes % (Manual) Eosinophils % (Manual) Monocytes # (Manual) Eosinophils # (Manual) D-Dimer Heparin Anti-Xa Level ABG pH POC ABG pCO2 POC ABG pO2 ABG pO2 ABG HCO3 ABG O2 Saturation ABG Base Excess ABG Hemoglobin ABG Oxyhemoglobin VBG pH ABG Sodium ABG Potassium ABG Glucose Oxyhemoglobin Sodium Potassium Chloride Carbon Dioxide BUN 85 H Creatinine 2.5 H Glucose 133 H POC Glucose 131 H 134 H Lactic Acid Calcium Ferritin AST Alkaline Phosphatase 131 H Magnesium Lactate Dehydrogenase Total Creatine Kinase CK-MB (CK-2) C-Reactive Protein Total Protein 5.2 L Albumin 1.6 L Troponin T HDL Cholesterol Arterial Blood Glucose Urine WBC (Auto) Urine Creatinine Urine Total Protein Coronavirus (PCR) Crossmatch 07/11/20 07/11/20 07/11/20 00:28 05:57 12:14 WBC RBC Hgb Hct MCHC RDW Lymph % (Auto) [place] % (Auto) Eos % (Auto) Lymph # [place] # Lymph # (Auto) [place] # (Auto) Seg Neutrophils % Seg Neuts % (Manual) Lymphocytes % (Manual) Seg Neutrophils # Seg Neutrophils # Man Lymphocytes # (Manual) Monocytes % (Manual) Eosinophils % (Manual) Monocytes # (Manual) Eosinophils # (Manual) D-Dimer Heparin Anti-Xa Level ABG pH POC ABG pCO2 POC ABG pO2 ABG pO2 ABG HCO3 ABG O2 Saturation ABG Base Excess ABG Hemoglobin ABG Oxyhemoglobin VBG pH ABG Sodium ABG Potassium ABG Glucose Oxyhemoglobin Sodium Potassium Chloride Carbon Dioxide BUN Creatinine Glucose POC Glucose 140 H 148 H 147 H Lactic Acid Calcium Ferritin AST Alkaline Phosphatase Magnesium Lactate Dehydrogenase Total Creatine Kinase CK-MB (CK-2) C-Reactive Protein Total Protein Albumin Troponin T HDL Cholesterol Arterial Blood Glucose Urine WBC (Auto) Urine Creatinine Urine Total Protein Coronavirus (PCR) Crossmatch 07/11/20 07/11/20 07/12/20 17:28 23:49 05:14 WBC RBC 2.78 L Hgb 8.5 L Hct 25.3 L MCHC RDW 16.7 H Lymph % (Auto) [place] % (Auto) Eos % (Auto) Lymph # [place] # Lymph # (Auto) [place] # (Auto) Seg Neutrophils % Seg Neuts % (Manual) 81.0 H Lymphocytes % (Manual) 6.0 L Seg Neutrophils # Seg Neutrophils # Man Lymphocytes # (Manual) 0.6 L Monocytes % (Manual) 8.0 H Eosinophils % (Manual) Monocytes # (Manual) Eosinophils # (Manual) D-Dimer Heparin Anti-Xa Level ABG pH POC ABG pCO2 POC ABG pO2 ABG pO2 ABG HCO3 ABG O2 Saturation ABG Base Excess ABG Hemoglobin ABG Oxyhemoglobin VBG pH ABG Sodium ABG Potassium ABG Glucose Oxyhemoglobin Sodium Potassium Chloride Carbon Dioxide BUN Creatinine Glucose POC Glucose 175 H 114 H Lactic Acid Calcium Ferritin AST Alkaline Phosphatase Magnesium Lactate Dehydrogenase Total Creatine Kinase CK-MB (CK-2) C-Reactive Protein Total Protein Albumin Troponin T HDL Cholesterol Arterial Blood Glucose Urine WBC (Auto) Urine Creatinine Urine Total Protein Coronavirus (PCR) Crossmatch 07/12/20 07/12/20 07/12/20 05:14 05:44 11:32 WBC RBC Hgb Hct MCHC RDW Lymph % (Auto) [place] % (Auto) Eos % (Auto) Lymph # [place] # Lymph # (Auto) [place] # (Auto) Seg Neutrophils % Seg Neuts % (Manual) Lymphocytes % (Manual) Seg Neutrophils # Seg Neutrophils # Man Lymphocytes # (Manual) Monocytes % (Manual) Eosinophils % (Manual) Monocytes # (Manual) Eosinophils # (Manual) D-Dimer Heparin Anti-Xa Level ABG pH POC ABG pCO2 POC ABG pO2 ABG pO2 ABG HCO3 ABG O2 Saturation ABG Base Excess ABG Hemoglobin ABG Oxyhemoglobin VBG pH ABG Sodium ABG Potassium ABG Glucose Oxyhemoglobin Sodium Potassium Chloride Carbon Dioxide BUN 79 H Creatinine 2.2 H Glucose 131 H POC Glucose 116 H 132 H Lactic Acid Calcium Ferritin AST Alkaline Phosphatase Magnesium Lactate Dehydrogenase Total Creatine Kinase CK-MB (CK-2) C-Reactive Protein Total Protein Albumin Troponin T HDL Cholesterol Arterial Blood Glucose Urine WBC (Auto) Urine Creatinine Urine Total Protein Coronavirus (PCR) Crossmatch 07/12/20 07/13/20 07/13/20 17:53 00:18 04:53 WBC RBC 2.86 L Hgb 8.4 L Hct 25.7 L MCHC RDW 16.8 H Lymph % (Auto) [place] % (Auto) Eos % (Auto) Lymph # [place] # Lymph # (Auto) [place] # (Auto) Seg Neutrophils % Seg Neuts % (Manual) 84.0 H Lymphocytes % (Manual) 7.0 L Seg Neutrophils # Seg Neutrophils # Man Lymphocytes # (Manual) 0.6 L Monocytes % (Manual) Eosinophils % (Manual) Monocytes # (Manual) Eosinophils # (Manual) D-Dimer Heparin Anti-Xa Level ABG pH POC ABG pCO2 POC ABG pO2 ABG pO2 ABG HCO3 ABG O2 Saturation ABG Base Excess ABG Hemoglobin ABG Oxyhemoglobin VBG pH ABG Sodium ABG Potassium ABG Glucose Oxyhemoglobin Sodium Potassium Chloride Carbon Dioxide BUN Creatinine Glucose POC Glucose 155 H 162 H Lactic Acid Calcium Ferritin AST Alkaline Phosphatase Magnesium Lactate Dehydrogenase Total Creatine Kinase CK-MB (CK-2) C-Reactive Protein Total Protein Albumin Troponin T HDL Cholesterol Arterial Blood Glucose Urine WBC (Auto) Urine Creatinine Urine Total Protein Coronavirus (PCR) Crossmatch 07/13/20 07/13/20 07/13/20 04:53 06:14 12:50 WBC RBC Hgb Hct MCHC RDW Lymph % (Auto) [place] % (Auto) Eos % (Auto) Lymph # [place] # Lymph # (Auto) [place] # (Auto) Seg Neutrophils % Seg Neuts % (Manual) Lymphocytes % (Manual) Seg Neutrophils # Seg Neutrophils # Man Lymphocytes # (Manual) Monocytes % (Manual) Eosinophils % (Manual) Monocytes # (Manual) Eosinophils # (Manual) D-Dimer Heparin Anti-Xa Level ABG pH POC ABG pCO2 POC ABG pO2 ABG pO2 ABG HCO3 ABG O2 Saturation ABG Base Excess ABG Hemoglobin ABG Oxyhemoglobin VBG pH ABG Sodium ABG Potassium ABG Glucose Oxyhemoglobin Sodium 136 L Potassium Chloride Carbon Dioxide BUN 78 H Creatinine 2.0 H Glucose 130 H POC Glucose 141 H 146 H Lactic Acid Calcium Ferritin AST Alkaline Phosphatase Magnesium Lactate Dehydrogenase Total Creatine Kinase CK-MB (CK-2) C-Reactive Protein Total Protein Albumin Troponin T HDL Cholesterol Arterial Blood Glucose Urine WBC (Auto) Urine Creatinine Urine Total Protein Coronavirus (PCR) Crossmatch 07/13/20 07/14/20 07/14/20 18:27 00:22 05:43 WBC RBC Hgb Hct MCHC RDW Lymph % (Auto) [place] % (Auto) Eos % (Auto) Lymph # [place] # Lymph # (Auto) [place] # (Auto) Seg Neutrophils % Seg Neuts % (Manual) Lymphocytes % (Manual) Seg Neutrophils # Seg Neutrophils # Man Lymphocytes # (Manual) Monocytes % (Manual) Eosinophils % (Manual) Monocytes # (Manual) Eosinophils # (Manual) D-Dimer Heparin Anti-Xa Level ABG pH POC ABG pCO2 POC ABG pO2 ABG pO2 ABG HCO3 ABG O2 Saturation ABG Base Excess ABG Hemoglobin ABG Oxyhemoglobin VBG pH ABG Sodium ABG Potassium ABG Glucose Oxyhemoglobin Sodium Potassium Chloride Carbon Dioxide BUN Creatinine Glucose POC Glucose 149 H 157 H 169 H Lactic Acid Calcium Ferritin AST Alkaline Phosphatase Magnesium Lactate Dehydrogenase Total Creatine Kinase CK-MB (CK-2) C-Reactive Protein Total Protein Albumin Troponin T HDL Cholesterol Arterial Blood Glucose Urine WBC (Auto) Urine Creatinine Urine Total Protein Coronavirus (PCR) Crossmatch 07/14/20 07/14/20 07/14/20 08:04 12:12 17:23 WBC RBC Hgb Hct MCHC RDW Lymph % (Auto) [place] % (Auto) Eos % (Auto) Lymph # [place] # Lymph # (Auto) [place] # (Auto) Seg Neutrophils % Seg Neuts % (Manual) Lymphocytes % (Manual) Seg Neutrophils # Seg Neutrophils # Man Lymphocytes # (Manual) Monocytes % (Manual) Eosinophils % (Manual) Monocytes # (Manual) Eosinophils # (Manual) D-Dimer Heparin Anti-Xa Level ABG pH POC ABG pCO2 POC ABG pO2 ABG pO2 ABG HCO3 ABG O2 Saturation ABG Base Excess ABG Hemoglobin ABG Oxyhemoglobin VBG pH ABG Sodium ABG Potassium ABG Glucose Oxyhemoglobin Sodium Potassium Chloride Carbon Dioxide BUN Creatinine Glucose POC Glucose 185 H 138 H Lactic Acid Calcium Ferritin AST Alkaline Phosphatase Magnesium Lactate Dehydrogenase Total Creatine Kinase CK-MB (CK-2) C-Reactive Protein Total Protein Albumin Troponin T HDL Cholesterol Arterial Blood Glucose Urine WBC (Auto) Urine Creatinine Urine Total Protein Coronavirus (PCR) Positive A Crossmatch 07/15/20 07/15/20 07/15/20 00:04 06:06 12:00 WBC RBC Hgb Hct MCHC RDW Lymph % (Auto) [place] % (Auto) Eos % (Auto) Lymph # [place] # Lymph # (Auto) [place] # (Auto) Seg Neutrophils % Seg Neuts % (Manual) Lymphocytes % (Manual) Seg Neutrophils # Seg Neutrophils # Man Lymphocytes # (Manual) Monocytes % (Manual) Eosinophils % (Manual) Monocytes # (Manual) Eosinophils # (Manual) D-Dimer Heparin Anti-Xa Level ABG pH POC ABG pCO2 POC ABG pO2 ABG pO2 ABG HCO3 ABG O2 Saturation ABG Base Excess ABG Hemoglobin ABG Oxyhemoglobin VBG pH ABG Sodium ABG Potassium ABG Glucose Oxyhemoglobin Sodium Potassium Chloride Carbon Dioxide BUN Creatinine Glucose POC Glucose 121 H 140 H 137 H Lactic Acid Calcium Ferritin AST Alkaline Phosphatase Magnesium Lactate Dehydrogenase Total Creatine Kinase CK-MB (CK-2) C-Reactive Protein Total Protein Albumin Troponin T HDL Cholesterol Arterial Blood Glucose Urine WBC (Auto) Urine Creatinine Urine Total Protein Coronavirus (PCR) Crossmatch 07/15/20 07/15/20 07/16/20 17:53 23:53 05:26 WBC RBC Hgb Hct MCHC RDW Lymph % (Auto) [place] % (Auto) Eos % (Auto) Lymph # [place] # Lymph # (Auto) [place] # (Auto) Seg Neutrophils % Seg Neuts % (Manual) Lymphocytes % (Manual) Seg Neutrophils # Seg Neutrophils # Man Lymphocytes # (Manual) Monocytes % (Manual) Eosinophils % (Manual) Monocytes # (Manual) Eosinophils # (Manual) D-Dimer Heparin Anti-Xa Level ABG pH POC ABG pCO2 POC ABG pO2 ABG pO2 ABG HCO3 ABG O2 Saturation ABG Base Excess ABG Hemoglobin ABG Oxyhemoglobin VBG pH ABG Sodium ABG Potassium ABG Glucose Oxyhemoglobin Sodium Potassium Chloride Carbon Dioxide BUN Creatinine Glucose POC Glucose 161 H 156 H 152 H Lactic Acid Calcium Ferritin AST Alkaline Phosphatase Magnesium Lactate Dehydrogenase Total Creatine Kinase CK-MB (CK-2) C-Reactive Protein Total Protein Albumin Troponin T HDL Cholesterol Arterial Blood Glucose Urine WBC (Auto) Urine Creatinine Urine Total Protein Coronavirus (PCR) Crossmatch 07/16/20 07/17/20 07/17/20 17:44 00:07 12:06 WBC RBC Hgb Hct MCHC RDW Lymph % (Auto) [place] % (Auto) Eos % (Auto) Lymph # [place] # Lymph # (Auto) [place] # (Auto) Seg Neutrophils % Seg Neuts % (Manual) Lymphocytes % (Manual) Seg Neutrophils # Seg Neutrophils # Man Lymphocytes # (Manual) Monocytes % (Manual) Eosinophils % (Manual) Monocytes # (Manual) Eosinophils # (Manual) D-Dimer Heparin Anti-Xa Level ABG pH POC ABG pCO2 POC ABG pO2 ABG pO2 ABG HCO3 ABG O2 Saturation ABG Base Excess ABG Hemoglobin ABG Oxyhemoglobin VBG pH ABG Sodium ABG Potassium ABG Glucose Oxyhemoglobin Sodium Potassium Chloride Carbon Dioxide BUN Creatinine Glucose POC Glucose 126 H 189 H 155 H Lactic Acid Calcium Ferritin AST Alkaline Phosphatase Magnesium Lactate Dehydrogenase Total Creatine Kinase CK-MB (CK-2) C-Reactive Protein Total Protein Albumin Troponin T HDL Cholesterol Arterial Blood Glucose Urine WBC (Auto) Urine Creatinine Urine Total Protein Coronavirus (PCR) Crossmatch 07/17/20 07/17/20 07/18/20 18:20 23:25 04:24 WBC RBC Hgb Hct MCHC RDW Lymph % (Auto) [place] % (Auto) Eos % (Auto) Lymph # [place] # Lymph # (Auto) [place] # (Auto) Seg Neutrophils % Seg Neuts % (Manual) Lymphocytes % (Manual) Seg Neutrophils # Seg Neutrophils # Man Lymphocytes # (Manual) Monocytes % (Manual) Eosinophils % (Manual) Monocytes # (Manual) Eosinophils # (Manual) D-Dimer Heparin Anti-Xa Level ABG pH POC ABG pCO2 POC ABG pO2 ABG pO2 ABG HCO3 ABG O2 Saturation ABG Base Excess ABG Hemoglobin 8.8 L ABG Oxyhemoglobin VBG pH ABG Sodium 131.6 L ABG Potassium 4.9 H ABG Glucose 131 H Oxyhemoglobin Sodium Potassium Chloride Carbon Dioxide BUN Creatinine Glucose POC Glucose 206 H 161 H Lactic Acid Calcium Ferritin AST Alkaline Phosphatase Magnesium Lactate Dehydrogenase Total Creatine Kinase CK-MB (CK-2) C-Reactive Protein Total Protein Albumin Troponin T HDL Cholesterol Arterial Blood Glucose 131 H Urine WBC (Auto) Urine Creatinine Urine Total Protein Coronavirus (PCR) Crossmatch 07/18/20 05:16 WBC RBC Hgb Hct MCHC RDW Lymph % (Auto) [place] % (Auto) Eos % (Auto) Lymph # [place] # Lymph # (Auto) [place] # (Auto) Seg Neutrophils % Seg Neuts % (Manual) Lymphocytes % (Manual) Seg Neutrophils # Seg Neutrophils # Man Lymphocytes # (Manual) Monocytes % (Manual) Eosinophils % (Manual) Monocytes # (Manual) Eosinophils # (Manual) D-Dimer Heparin Anti-Xa Level ABG pH POC ABG pCO2 POC ABG pO2 ABG pO2 ABG HCO3 ABG O2 Saturation ABG Base Excess ABG Hemoglobin ABG Oxyhemoglobin VBG pH ABG Sodium ABG Potassium ABG Glucose Oxyhemoglobin Sodium Potassium Chloride Carbon Dioxide BUN Creatinine Glucose POC Glucose 140 H Lactic Acid Calcium Ferritin AST Alkaline Phosphatase Magnesium Lactate Dehydrogenase Total Creatine Kinase CK-MB (CK-2) C-Reactive Protein Total Protein Albumin Troponin T HDL Cholesterol Arterial Blood Glucose Urine WBC (Auto) Urine Creatinine Urine Total Protein Coronavirus (PCR) Crossmatch Allied health notes reviewed: nursing
--- NOTE | 2020-07-18 14:36 | XRay Report ---
CHEST 1 VIEW 07/18/2020 1:56 PM INDICATION / CLINICAL INFORMATION: respiratory failure, COVID. COMPARISON: 07/04/2020. FINDINGS: SUPPORT DEVICES: Unchanged. HEART / MEDIASTINUM: Stable. LUNGS / PLEURA: Stable bilateral mid and lower lung airspace opacities. No pneumothorax. ADDITIONAL FINDINGS: No significant additional findings. IMPRESSION: 1. No significant change from 07/04/2020. Signer Name: Pete Brower MD Signed: 07/18/2020 2:31 PM Workstation Name: [id number]
--- NOTE | 2020-07-18 16:55 | Progress Note ---
Assessment and Plan Assessment and plan: --s/p cardiopulmonary arrest on admission, 06/26 and 07/01, s/p CPR per ACLS protocol, refer to code sheet --Possible anoxic brain injury, neurology consulted, neuro requested MRI brain, EEG MRI brain could not be done due to body habitus, EEG not done --Acute hypoxemic respiratory failure; vent dependent intubated on admission, extubated on 06/12/20 then placed on high flow o2 patient developed another respiratory arrest on 06/26 - reintubated Patient not tolerating weaning parameters CC following, Surgery evaluated the patient for trach and PEG COVID-19 test positive x3, trach and PEG pending neuro evaluation -- Hypertension; moderate control Increase hydralazine dose to 75 mg 3 times a day Continue amlodipine, coreg, clonidine and hydralazine --Worsening renal function; creatinine 2.4-2.5-2.9 Vasomotor nephropathy, gentle hydration Avoid nephrotoxins, monitor renal function Reconsult nephrology --Rectal bleeding; Hb dropped from 8.2 -6.9-7.7-6.8 today, Transfused 1 unit PRBC Closely monitor H&H, GI following, no plans of endoscopy --Acute blood loss anemia; Received 2 units of PRBC transfusion, Hb improved from 6.9-7.7-6.8 Patient received 2 units of PRBC in the past, transfuse 1 additional unit today Closely monitor H&H --Severe sepsis; completed antibiotics per ID persistently positive for COVID-19 and Klebsiella pneumoniae --COVID-19 b/l PNA Completed remdesivir on 06/02 Completed dexamethasone - Last dose 06/07 COVID 19 test positive x 3 during this admission --Superficial left cephalic vein DVT/elevated D-dimers[COVID 19] Patient initially started on heparin drip from 05/29/20 D-dimers improved [phone] treated with Eliquis 5 mg twice a day for 1 week[per ID] stop date 06/26/2020 -- Acute toxic metabolic encephalopathy, POA likely from sepsis and s/p cardiac arrest with possible anoxic injury -- Acute renal failure: likely ATN avoid nephrotoxins, reconsult nephrology if no improvement --Klebsiella pneumonia: ID evaluated completed second round of 5 days of cefepime on 07/04/2020 --Acute on chronic systolic heart failure Cardiology following. Ef 45% -- Coffee ground emesis -Stress ulcers Possible stress ulcers, On PPI H/H again dropped - transfuse GI evaluated --Transaminitis. Etiology likely from COVID-19. cont to monitor -- DVT prophylaxis Eliquis, SCD to bilateral lower extremities while in bed -- Advance care planning Patient is critically ill with multiple medical problems Poor prognosis, family updated and requesting full code The high probability of a clinically significant, sudden or life threatening deterioration of the [[employer]S, renal, respiratory, [employer]] system(s) required my full and direct attention, intervention and personal management. The aggregate critical care time was [31] minutes. This time is in addition to time spent performing reported procedures but includes the following: [x] Data Review and interpretation [x] Patient assessment and monitoring of vital signs [x] Documentation [x] Medication orders and management 07/11/2020. Patient currently on mechanical ventilation AC/PRVC with rate of 12, tidal volume 450, FiO2 30% and PEEP of 6 07/12/2020. Patient placed on CPAP with pressure support of 10 and tolerating well. Continue PSB trials as tolerated. 07/13/2020. Patient currently with AC mode rate 12, tidal volume 450, FiO2 30% and PEEP of 6. Surgery has been consulted for trach and PEG placement. Recall nephrology for renal insufficiency. 07/14/20; surgery evaluated for trach and PEG , pending call with test which is is positive today COVID-19 test positive x3 since admission 07/16; trach and PEG pending neuro evaluation 07/17; vent dependent, trach PEG pending neuro evaluation, pending MRI EEG study[already ordered] 07/18; unable to do MRI, due to body habitus, morbid obesity, radiology consult Patient critically ill very poor prognosis Hospitalist Physical - Constitutional Vitals: Temp Pulse Resp BP Pulse Ox 100.3 F H 79 14 152/63 95 07/18/20 12:00 07/18/20 15:57 07/18/20 14:30 07/18/20 15:57 07/18/20 15:57 General appearance: Present: mild distress, well-nourished, obese (Morbidly obese), other (Intubated on ventilatory support) - EENT Eyes: Present: PERRL, EOM intact - Neck Neck: Present: supple, normal ROM - Cardiovascular Rhythm: regular Heart Sounds: Present: S1 & S2 - Extremities Extremities: no ischemia, No edema - Abdominal General gastrointestinal: soft, non-tender, non-distended, normal bowel sounds - Integumentary Integumentary: Present: clear, warm - Psychiatric Psychiatric: other (Intubated on vent) - Neurologic Neurologic: other (Intubated on vent) HEART Score - HEART Score Troponin: Troponin T 0.067 ng/mL (0.00-0.029) H 07/01/20 06:01 Results - Labs CBC & Chem 7: 07/13/20 04:53 07/13/20 04:53 Labs: Laboratory Last Values WBC 8.5 K/mm3 (4.5-11.0) 07/13/20 04:53 RBC 2.86 M/mm3 (3.65-5.03) L 07/13/20 04:53 Hgb 8.4 gm/dl (10.1-14.3) L 07/13/20 04:53 Hct 25.7 % (30.3-42.9) L 07/13/20 04:53 MCV 90 fl (79-97) 07/13/20 04:53 MCH 30 pg (28-32) 07/13/20 04:53 MCHC 33 % (30-34) 07/13/20 04:53 RDW 16.8 % (13.2-15.2) H 07/13/20 04:53 Plt Count 298 K/mm3 (140-440) 07/13/20 04:53 Lymph % (Auto) 10.3 % (13.4-35.0) L 07/08/20 04:14 [place] % (Auto) 10.0 % (0.0-7.3) H 07/08/20 04:14 Eos % (Auto) 2.0 % (0.0-4.3) 07/08/20 04:14 Baso % (Auto) 0.5 % (0.0-1.8) 07/08/20 04:14 Lymph # (Auto) 1.1 K/mm3 (1.2-5.4) L 07/08/20 04:14 [place] # (Auto) 1.1 K/mm3 (0.0-0.8) H 07/08/20 04:14 Eos # (Auto) 0.2 K/mm3 (0.0-0.4) 07/08/20 04:14 Baso # (Auto) 0.1 K/mm3 (0.0-0.1) 07/08/20 04:14 Add Manual Diff Complete 07/13/20 04:53 Total Counted 100 07/13/20 04:53 Seg Neutrophils % 77.2 % (40.0-70.0) H 07/08/20 04:14 Seg Neuts % (Manual) 84.0 % (40.0-70.0) H 07/13/20 04:53 Band Neutrophils % 1.0 % 07/13/20 04:53 Lymphocytes % (Manual) 7.0 % (13.4-35.0) L 07/13/20 04:53 Reactive Lymphs % (Man) 0 % 07/13/20 04:53 Monocytes % (Manual) 5.0 % (0.0-7.3) 07/13/20 04:53 Eosinophils % (Manual) 1.0 % (0.0-4.3) 07/13/20 04:53 Basophils % (Manual) 0 % (0.0-1.8) 07/13/20 04:53 Metamyelocytes % 2.0 % 07/13/20 04:53 Myelocytes % 0 % 07/13/20 04:53 Promyelocytes % 0 % 07/13/20 04:53 Blast Cells % 0 % 07/13/20 04:53 Nucleated RBC % Not Reportable 07/13/20 04:53 Seg Neutrophils # 8.2 K/mm3 (1.8-7.7) H 07/08/20 04:14 Seg Neutrophils # Man 7.1 K/mm3 (1.8-7.7) 07/13/20 04:53 Band Neutrophils # 0.1 K/mm3 07/13/20 04:53 Lymphocytes # (Manual) 0.6 K/mm3 (1.2-5.4) L 07/13/20 04:53 Abs React Lymphs (Man) 0.0 K/mm3 07/13/20 04:53 Monocytes # (Manual) 0.4 K/mm3 (0.0-0.8) 07/13/20 04:53 Eosinophils # (Manual) 0.1 K/mm3 (0.0-0.4) 07/13/20 04:53 Basophils # (Manual) 0.0 K/mm3 (0.0-0.1) 07/13/20 04:53 Metamyelocytes # 0.2 K/mm3 07/13/20 04:53 Myelocytes # 0.0 K/mm3 07/13/20 04:53 Promyelocytes # 0.0 K/mm3 07/13/20 04:53 Blast Cells # 0.0 K/mm3 07/13/20 04:53 WBC Morphology Not Reportable 07/13/20 04:53 Hypersegmented Neuts Not Reportable 07/13/20 04:53 Hyposegmented Neuts Not Reportable 07/13/20 04:53 Hypogranular Neuts Not Reportable 07/13/20 04:53 Smudge Cells Not Reportable 07/13/20 04:53 Toxic Granulation Not Reportable 07/13/20 04:53 Toxic Vacuolation Not Reportable 07/13/20 04:53 Dohle Bodies Not Reportable 07/13/20 04:53 Pelger-Huet Anomaly Not Reportable 07/13/20 04:53 Sanjuanita Rods Not Reportable 07/13/20 04:53 Platelet Estimate Consistent w auto 07/13/20 04:53 Clumped Platelets Not Reportable 07/13/20 04:53 Plt Clumps, EDTA Not Reportable 07/13/20 04:53 Large Platelets Not Reportable 07/13/20 04:53 Giant Platelets Not Reportable 07/13/20 04:53 Platelet Satelliting Not Reportable 07/13/20 04:53 Plt Morphology Comment Not Reportable 07/13/20 04:53 RBC Morphology Not Reportable 07/13/20 04:53 Dimorphic RBCs Not Reportable 07/13/20 04:53 Polychromasia Not Reportable 07/13/20 04:53 Hypochromasia Not Reportable 07/13/20 04:53 Poikilocytosis Not Reportable 07/13/20 04:53 Anisocytosis 1+ 07/13/20 04:53 Microcytosis Not Reportable 07/13/20 04:53 Macrocytosis Not Reportable 07/13/20 04:53 Spherocytes Not Reportable 07/13/20 04:53 Pappenheimer Bodies Not Reportable 07/13/20 04:53 Sickle Cells Not Reportable 07/13/20 04:53 Target Cells Not Reportable 07/13/20 04:53 Tear Drop Cells Not Reportable 07/13/20 04:53 Ovalocytes Not Reportable 07/13/20 04:53 Helmet Cells Not Reportable 07/13/20 04:53 Jones-Murray Bodies Not Reportable 07/13/20 04:53 [place] Rings Not Reportable 07/13/20 04:53 [place] Cells Not Reportable 07/13/20 04:53 Bite Cells Not Reportable 07/13/20 04:53 Crenated Cell Not Reportable 07/13/20 04:53 Elliptocytes Not Reportable 07/13/20 04:53 Acanthocytes (Spur) Not Reportable 07/13/20 04:53 Rouleaux Not Reportable 07/13/20 04:53 Hemoglobin C Crystals Not Reportable 07/13/20 04:53 Schistocytes Not Reportable 07/13/20 04:53 Malaria parasites Not Reportable 07/13/20 04:53 Kev Bodies Not Reportable 07/13/20 04:53 Hem Pathologist Commnt No 07/13/20 04:53 PT 14.2 Sec. (12.2-14.9) 05/29/20 15:10 INR 1.08 (0.87-1.13) 05/29/20 15:10 APTT 27.2 Sec. (24.2-36.6) 05/29/20 15:10 D-Dimer 2310.15 ng/mlDDU (0-234) H 06/29/20 14:45 Heparin Anti-Xa Level 0.34 U.I./ml (0.3-0.7) 06/19/20 10:46 ABG pH 7.382 (7.320-7.450) 07/18/20 04:24 POC ABG pCO2 44.1 mmHg (32.0-48.0) 07/18/20 04:24 ABG pCO2 47.0 mm Hg 07/05/20 13:05 ABG Oxyhemoglobin 92.6 (94-98) L 06/23/20 12:34 POC ABG pO2 86.8 mmHg (83-108) 07/18/20 04:24 ABG pO2 78.3 mm Hg (80.0-90.0) L 07/05/20 13:05 POC ABG HCO3 25.6 07/18/20 04:24 ABG HCO3 23.4 mmol/L (20.0-26.0) 07/05/20 13:05 ABG O2 Saturation 96.1 % (95.0-99.0) 07/05/20 13:05 ABG O2 Content 0.3 (0.0-44) 07/05/20 13:05 POC ABG Base Excess 0.4 07/18/20 04:24 ABG Base Excess -2.6 mmol/L (-2.0-3.0) L 07/05/20 13:05 ABG Hemoglobin 8.8 (12.0-17.5) L 07/18/20 04:24 ABG Carboxyhemoglobin 1.7 % (0.0-5.0) 07/05/20 13:05 ABG Methemoglobin 0.2 % (0.0-1.5) 07/05/20 13:05 VBG pH 7.152 (7.320-7.420) L* 05/28/20 13:47 ABG Sodium 131.6 mmol/L (136.0-145.0) L 07/18/20 04:24 ABG Potassium 4.9 mmol/L (3.40-4.50) H 07/18/20 04:24 ABG Chloride 104.0 mmol/L (98-107) 07/18/20 04:24 ABG Glucose 131 mg/dL (65-95) H 07/18/20 04:24 Carboxyhemoglobin 0.5 (0.5-1.5) 06/23/20 12:34 Oxyhemoglobin 97.4 % (95.0-99.0) 07/05/20 13:05 FiO2 30.0 07/18/20 04:24 Sodium 136 mmol/L (137-145) L 07/13/20 04:53 Potassium 5.0 mmol/L (3.6-5.0) 07/13/20 04:53 Chloride 102.4 mmol/L (98-107) 07/13/20 04:53 Carbon Dioxide 27 mmol/L (22-30) 07/13/20 04:53 Anion Gap 12 mmol/L 07/13/20 04:53 BUN 78 mg/dL (7-17) H 07/13/20 04:53 Creatinine 2.0 mg/dL (0.6-1.2) H 07/13/20 04:53 Estimated GFR 25 ml/min 07/13/20 04:53 BUN/Creatinine Ratio 39 % 07/13/20 04:53 Glucose 130 mg/dL (65-100) H 07/13/20 04:53 POC Glucose 140 (70-105) H 07/18/20 05:16 Lactic Acid 0.60 mmol/L (0.7-2.0) L 06/27/20 05:00 Calcium 8.7 mg/dL (8.4-10.2) 07/13/20 04:53 Ferritin 223.6 ng/mL (10.0-200.0) H 06/29/20 14:45 Magnesium 2.50 mg/dL (1.7-2.3) H 07/08/20 04:14 Lactate Dehydrogenase 367 units/L (91-180) H 06/29/20 14:45 Total Bilirubin < 0.20 mg/dL (0.1-1.2) 07/10/20 10:41 AST 25 units/L (5-40) 07/10/20 10:41 ALT 11 units/L (7-56) 07/10/20 10:41 Alkaline Phosphatase 131 units/L (35-129) H 07/10/20 10:41 C-Reactive Protein 3.60 mg/dL (0.00-1.30) H 06/29/20 14:45 Total Creatine Kinase 300 units/L (30-135) H 07/01/20 06:01 CK-MB (CK-2) 2.0 ng/mL (0.0-4.0) 07/01/20 06:01 CK-MB (CK-2) Rel Index 0.6 (0-4) 07/01/20 06:01 Troponin T 0.067 ng/mL (0.00-0.029) H 07/01/20 06:01 Total Protein 5.2 g/dL (6.3-8.2) L 07/10/20 10:41 Albumin 1.6 g/dL (3.9-5) L 07/10/20 10:41 Albumin/Globulin Ratio 0.4 % 07/10/20 10:41 Triglycerides 142 mg/dL (2-149) 07/01/20 06:01 Cholesterol 137 mg/dL (50-199) 07/01/20 06:01 LDL Cholesterol Direct 62 mg/dL (50-130) 07/01/20 06:01 HDL Cholesterol 61 mg/dL (40-59) H 07/01/20 06:01 Cholesterol/HDL Ratio 2.24 % 07/01/20 06:01 Procalcitonin 0.18 ng/mL (<0.15) 07/14/20 04:55 Arterial Blood Glucose 131 mg/dL (65-95) H 07/18/20 04:24 Arterial Blood Ionized Calcium 5.1 mg/dL (4.6-5.3) 07/18/20 04:24 Urine Color Yellow (Yellow) 06/06/20 04:00 Urine Turbidity Cloudy (Clear) 06/06/20 04:00 Urine pH 5.0 (5.0-7.0) 06/06/20 04:00 Ur Specific [place] 1.012 (1.003-1.030) 06/06/20 04:00 Urine Protein 100 mg/dl mg/dL (Negative) 06/06/20 04:00 Urine Glucose (UA) 50 mg/dL (Negative) 06/06/20 04:00 Urine Ketones Neg mg/dL (Negative) 06/06/20 04:00 Urine Blood Sm (Negative) 06/06/20 04:00 Urine Nitrite Neg (Negative) 06/06/20 04:00 Urine Bilirubin Neg (Negative) 06/06/20 04:00 Urine Urobilinogen < 2.0 mg/dL (<2.0) 06/06/20 04:00 Ur Leukocyte Esterase Neg (Negative) 06/06/20 04:00 Urine WBC (Auto) 15.0 /HPF (0.0-6.0) H 06/06/20 04:00 Urine RBC (Auto) 23.0 /HPF (0.0-6.0) 06/06/20 04:00 U Epithel Cells (Auto) 8.0 /HPF (0-13.0) 06/06/20 04:00 Urine Bacteria (Auto) 2+ /HPF (Negative) 06/06/20 04:00 Amorphous Crystals 1+ 06/06/20 04:00 Hyaline Casts 16 /LPF 06/06/20 04:00 Urine Mucus 2+ /HPF 06/06/20 04:00 Urine Yeast (Budding) 2+ /HPF 06/03/20 Unknown Urine Creatinine 33.3 mg/dL (0.1-20.0) H 07/06/20 13:20 Urine Sodium 21 mmol/L 07/06/20 13:20 Urine Total Protein 196 mg/dL (5-11.8) H 06/06/20 04:00 Nasal Screen MRSA (PCR) Negative (Negative) 06/29/20 08:30 Coronavirus (PCR) Positive (Negative) A 07/14/20 08:04 Blood Type A POSITIVE 07/05/20 02:30 Antibody Screen Negative 07/05/20 02:30 Crossmatch See Detail 07/05/20 02:30 - Diagnostic Impressions Diagnostic Impressions: Echocardiogram Limited Views 05/29/20 13:52 Transthoracic Echocardiogram Indication: Pulm Embolus BP: 169/76 HR: 85 Conclusions *Limited study for RV size post cardiopulmonar arrest. *RV is only slightly dilated, no significant difference from prior echo 05/13/2020. *Global left ventricular systolic function is at the lower limits of normal. *The estimated ejection fraction is 45-50%. *Mild to moderate concentric left ventricular hypertrophy is observed. *The left and right atria are both mild to moderately dilated. Findings Left Ventricle: The left ventricular chamber size is mildly dilated. Mild to moderate concentric left ventricular hypertrophy is observed. Global left ventricular systolic function is at the lower limits of normal. The estimated ejection fraction is 45-50%. Left Atrium: The left atrium is mild to moderately dilated. Right Ventricle: The right ventricle is slightly dilated. Right Atrium: The right atrium is mild to moderately dilated. Aortic Valve: The aortic valve leaflets are moderately thickened. Mitral Valve: There is mitral annular calcification. The mitral valve leaflets are moderately thickened. Tricuspid Valve: The tricuspid valve leaflets are mildly thickened. Pericardium: A trivial pericardial effusion is visualized. NDUM: 05/29/20 1808 Amended Report Transthoracic Echocardiogram Indication: Pulm Embolus BP: 169/76 HR: 85 Conclusions *Limited study for RV size post cardiopulmonary arrest. *RV is only slightly dilated, no significant difference from prior echo 05/13/2020. *Global left ventricular systolic function is at the lower limits of normal. *The estimated ejection fraction is 45-50%. *Mild to moderate concentric left ventricular hypertrophy is observed. *The left and right atria are both mild to moderately dilated. Findings Left Ventricle: The left ventricular chamber size is mildly dilated. Mild to moderate concentric left ventricular hypertrophy is observed. Global left ventricular systolic function is at the lower limits of normal. The estimated ejection fraction is 45-50%. Left Atrium: The left atrium is mild to moderately dilated. Right Ventricle: The right ventricle is slightly dilated. Right Atrium: The right atrium is mild to moderately dilated. Aortic Valve: The aortic valve leaflets are moderately thickened. Mitral Valve: There is mitral annular calcification. The mitral valve leaflets are moderately thickened. Tricuspid Valve: The tricuspid valve leaflets are mildly thickened. Pericardium: A trivial pericardial effusion is visualized. Helm/IV: Voiding Method External Female Catheter IV Catheter Type [Left Wrist] INT / Saline Lock IV Catheter Type [Left Upper Mid-line arm] IV Catheter Type [Right CVL Internal Jugular] IV Catheter Type [Right Hand] INT / Saline Lock IV Catheter Type [Right Wrist] Not found on patient IV Catheter Type [Left Hand] INT / Saline Lock IV Catheter Type [Left INT / Saline Lock Antecubital] IV Catheter Type [Right Peripheral IV Forearm] IV Catheter Type [Left Leg] Intra-osseous Active Medications - Current Medications Current Medications: Generic Name Dose Route Start Last Admin Trade Name Freq PRN Reason Stop Dose Admin Acetaminophen 650 mg 06/09/20 10:57 06/29/20 21:18 Tylenol FEEDTUBE 650 mg Q6H PRN Administration Fever >101 Amlodipine Besylate 10 mg 06/02/20 11:00 07/18/20 11:57 Amlodipine PO 10 mg DAILY NELSON Administration Lipase/Protease/Amylase 1 each 05/29/20 13:39 07/07/20 10:36 Pancreaze 10,500 Unit FEEDTUBE 1 each PRN PRN Administration For Clogged Feeding Tube Carvedilol 12.5 mg 06/03/20 10:00 07/18/20 11:58 Coreg PO 12.5 mg BID NELSON Administration Clonidine HCl 0.2 mg 07/16/20 10:00 07/18/20 02:25 Catapres PO 0.2 mg Q8H NELSON Administration Glycopyrrolate 2 mg 06/09/20 14:00 07/18/20 11:56 Glycopyrrolate PO 2 mg TID NELSON Administration Heparin Sodium (Porcine) 5,000 unit 06/30/20 14:00 07/18/20 05:43 Heparin SUB-Q 5,000 unit Q8HR NELSON Administration Hydralazine HCl 100 mg 07/14/20 14:00 07/18/20 11:55 Apresoline PO 100 mg TID NELSON Administration Hydrophilic Ointment 1 applic 05/28/20 13:49 Vaseline Lip Therapy TP Q2HR PRN Dry Lips Insulin Glargine 10 units 06/08/20 22:00 07/17/20 21:53 Lantus SUB-Q 10 units QHS NELSON Administration Insulin Human Lispro 0 unit 05/29/20 18:00 07/18/20 11:59 Humalog SUB-Q 3 unit Q6H NELSON Administration Protocol Labetalol HCl 20 mg 06/03/20 09:00 07/16/20 06:52 Labetalol IV 20 mg Q4H PRN Administration HYPERTENSION Lansoprazole 30 mg 06/05/20 22:00 07/18/20 11:58 Prevacid Solutab FEEDTUBE 30 mg BID NELSON Administration Modafinil 200 mg 07/18/20 10:00 07/18/20 11:57 Provigil PO 200 mg DAILY NELSON Administration Multi-Ingred Cream/Lotion/Oil/Oint 1 applic 05/28/20 13:49 Artificial Tears Ophth Oint OU Q4HR PRN Dry Eye(s) Ondansetron HCl 4 mg 06/02/20 09:00 06/09/20 16:48 Zofran IV 4 mg Q8H PRN Administration Nausea And Vomiting Senna 17.6 mg 06/03/20 10:00 07/18/20 11:59 Senokot FEEDTUBE Not Given BID NELSON Simple Syrup 15 ml 05/29/20 13:39 Simple Syrup FEEDTUBE PRN PRN Hypoglycemia Simple Syrup 30 ml 05/29/20 13:39 Simple Syrup FEEDTUBE PRN PRN Hypoglycemia Sodium Bicarbonate 325 mg 05/29/20 13:39 07/07/20 10:36 Sodium Bicarbonate FEEDTUBE 325 mg PRN PRN Administration For Clogged Feeding Tube Sodium Chloride 10 ml 05/28/20 22:00 07/18/20 11:59 Sodium Chloride Flush Syringe 10 Ml IV Not Given BID NELSON Sodium Chloride 10 ml 05/28/20 19:08 06/16/20 17:50 Sodium Chloride Flush Syringe 10 Ml IV 10 ml PRN PRN Administration LINE FLUSH Nutrition/Malnutrition Assess - Dietary Evaluation Nutrition/Malnutrition Findings: Nutrition Notes Start: 05/29/20 11:45 Freq: Status: Active Protocol: Document 07/09/20 11:47 [email or web address] (Rec: 07/09/20 11:53 [email or web address]) Co-Sign 07/09/20 11:47 Nutrition Notes Initial or Follow up Reassessment Current Diagnosis Acute Kidney Injury,Diabetes, Heart Failure,Respiratory Failure Other Pertinent Diagnosis COVID-19 (+), Pulmonary edema, dysphagia Current Diet Glucerna 1.2 at 55ml/hr Labs/Tests Na 136 BUN 84 Cr 2.8 BG 109 Mg 2.5 Pertinent Medications Reviewed Height 5 ft 6 in Weight 123 kg [place] Body Weight (kg) 59.09 BMI 43.7 Weight Status Morbidly Obese Subjective/Other Information F/U TF tolerance. Per RN, pt tolerating TF and running at goal rate. Percent of energy/protein needs met: 99%/53% Burn Absent Trauma Absent Current % PO Negligible Minimum of two criteria No physical signs of malnutrition Fluid Accumulation Mild (non-severe) #1 Nutrition Diagnosis Inadequate oral intake Diagnosis Progress(for reassessment Continues documentation) Is patient on ventilator? Yes Is Patient Ambulatory and/or Out of Bed No REE-([facility]-confined to bed) 2172.576 Kcal/Kg value to use for calculation 13 Approximate Energy Requirements Using 1599 kcal/Kg Calculation Used for Recommendations Kcal/kg Additional Notes Protein needs up to 148g (up to 2.5g/kg IBW) Fluid needs 1ml/kcal Nutrition Intervention Change Diet Order: Change TF Nutrition Support: Nepro at 40ml/hr Flush 150ml q4h Kcal 1,728 Protein (gm) 78 Fluid (mL) 697 Goal #1 TF tolerance Goal #2 TF to meet at least 65%-70% energy and 80% protein needs Anticipated Discharge Needs: Unable to determine at this time Follow-Up By: 07/20/20 Additional Comments F/U for TF tolerance
[2020-07-18] MEDS: INSULIN GLARGINE 100 UNITS/ML SUB-Q SCH (21:31)
[2020-07-19] MEDS: INSULIN LISPRO 100 UNIT/ML VIAL 3 mL SUB-Q SCH ×5 (00:40→18:32)
[2020-07-19 01:22] LABS: Basophils # (Auto) 0.1 K/mm3 (0.0-0.1); Basophils % (Auto) 0.7 % (0.0-1.8); Eosinophils # (Auto) 0.3 K/mm3 (0.0-0.4); Eosinophils % (Auto) 3.7 % (0.0-4.3); Hematocrit 24.5 % (30.3-42.9); Hemoglobin 7.9 gm/dl (10.1-14.3); Lymphocytes % (Auto) 11.6 % (13.4-35.0); Mean Corpuscular HGB Conc 32 % (30-34); Mean Corpuscular Volume 89 fl (79-97); Monocytes # (Auto) 1.1 K/mm3 (0.0-0.8); Monocytes % (Auto) 13.1 % (0.0-7.3); Platelet Count 312 K/mm3 (140-440); Red Blood Count 2.76 M/mm3 (3.65-5.03); Red Cell Distribution Width 17.6 % (13.2-15.2)
[2020-07-19 01:38] LABS: Calcium 8.8 mg/dL (8.4-10.2)
[2020-07-19] MEDS: cloNIDine 0.2 MG TAB PO SCH ×4 (02:50→18:37)
[2020-07-19] MEDS: HEPARIN 5,000 UNIT/1 ML VIAL SUB-Q SCH ×3 (07:01→22:04)
--- NOTE | 2020-07-19 08:41 | Progress Note ---
Assessment and Plan Assessment and plan: --s/p cardiopulmonary arrest on admission, 06/26 and 07/01, s/p CPR per ACLS protocol, refer to code sheet --Possible anoxic brain injury, neurology consulted, neuro requested MRI brain, EEG MRI brain could not be done due to body habitus, EEG not done --Acute hypoxemic respiratory failure; vent dependent intubated on admission, extubated on 06/12/20 then placed on high flow o2 patient developed another respiratory arrest on 06/26 - reintubated Patient not tolerating weaning parameters CC following, Surgery evaluated the patient for trach and PEG COVID-19 test positive x3, trach and PEG pending neuro evaluation -- Hypertension; moderate control Increase hydralazine dose to 75 mg 3 times a day Continue amlodipine, coreg, clonidine and hydralazine --Worsening renal function; creatinine 2.4-2.5-2.9 Vasomotor nephropathy, gentle hydration Avoid nephrotoxins, monitor renal function Reconsult nephrology --Rectal bleeding; Hb dropped from 8.2 -6.9-7.7-6.8 today, Transfused 1 unit PRBC Closely monitor H&H, GI following, no plans of endoscopy --Acute blood loss anemia; Received 2 units of PRBC transfusion, Hb improved from 6.9-7.7-6.8 Patient received 2 units of PRBC in the past, transfuse 1 additional unit today Closely monitor H&H --Severe sepsis; completed antibiotics per ID persistently positive for COVID-19 and Klebsiella pneumoniae --COVID-19 b/l PNA Completed remdesivir on 06/02 Completed dexamethasone - Last dose 06/07 COVID 19 test positive x 3 during this admission --Superficial left cephalic vein DVT/elevated D-dimers[COVID 19] Patient initially started on heparin drip from 05/29/20 D-dimers improved [id number] treated with Eliquis 5 mg twice a day for 1 week[per ID] stop date 06/26/2020 -- Acute toxic metabolic encephalopathy, POA likely from sepsis and s/p cardiac arrest with possible anoxic injury -- Acute renal failure: likely ATN avoid nephrotoxins, reconsult nephrology if no improvement --Klebsiella pneumonia: ID evaluated completed second round of 5 days of cefepime on 07/04/2020 --Acute on chronic systolic heart failure Cardiology following. Ef 45% -- Coffee ground emesis -Stress ulcers Possible stress ulcers, On PPI H/H again dropped - transfuse GI evaluated --Transaminitis. Etiology likely from COVID-19. cont to monitor -- DVT prophylaxis Eliquis, SCD to bilateral lower extremities while in bed -- Advance care planning Patient is critically ill with multiple medical problems Poor prognosis, family updated and requesting full code The high probability of a clinically significant, sudden or life threatening deterioration of the [[facility], renal, respiratory, HEALTH AND WELLNESS DIRECTOR] system(s) required my full and direct attention, intervention and personal management. The aggregate critical care time was [31] minutes. This time is in addition to time spent performing reported procedures but includes the following: [x] Data Review and interpretation [x] Patient assessment and monitoring of vital signs [x] Documentation [x] Medication orders and management 07/11/2020. Patient currently on mechanical ventilation AC/PRVC with rate of 12, tidal volume 450, FiO2 30% and PEEP of 6 07/12/2020. Patient placed on CPAP with pressure support of 10 and tolerating well. Continue PSB trials as tolerated. 07/13/2020. Patient currently with AC mode rate 12, tidal volume 450, FiO2 30% and PEEP of 6. Surgery has been consulted for trach and PEG placement. Recall nephrology for renal insufficiency. 07/14/20; surgery evaluated for trach and PEG , pending call with test which is is positive today COVID-19 test positive x3 since admission 07/16; trach and PEG pending neuro evaluation 07/17; vent dependent, trach PEG pending neuro evaluation, pending MRI EEG study[already ordered] 07/18; unable to do MRI, due to body habitus, morbid obesity, radiology consult Patient critically ill very poor prognosis 07/19; remains intubated on vent, clinically no change History Interval history: Patient seen and examined at the bedside this morning Patient is COVID positive x3 Isolation precautions, PPE protocols fully followed Remains intubated on vent Vital signs noted Hospitalist Physical - Constitutional Vitals: Temp Pulse Resp BP Pulse Ox 98.4 F 69 16 163/63 95 07/19/20 03:37 07/19/20 08:00 07/19/20 08:00 07/19/20 08:00 07/19/20 08:00 General appearance: Present: mild distress, well-nourished, obese (Morbidly obese), other (Intubated on ventilatory support) - EENT Eyes: Present: PERRL. Absent: scleral icterus - Neck Neck: Present: supple, normal ROM - Respiratory Respiratory effort: normal Respiratory: bilateral: diminished, rhonchi, negative: rales, wheezing - Cardiovascular Rhythm: regular Heart Sounds: Present: S1 & S2 - Extremities Extremities: no ischemia, pulses intact - Abdominal General gastrointestinal: soft, non-tender, non-distended, normal bowel sounds - Integumentary Integumentary: Present: clear, warm - Psychiatric Psychiatric: other (Intubated on vent) - Neurologic Neurologic: other (Intubated on vent) HEART Score - HEART Score Troponin: Troponin T 0.067 ng/mL (0.00-0.029) H 07/01/20 06:01 Results - Labs CBC & Chem 7: 07/19/20 01:05 07/19/20 01:05 Labs: Laboratory Last Values WBC 8.4 K/mm3 (4.5-11.0) 07/19/20 01:05 RBC 2.76 M/mm3 (3.65-5.03) L 07/19/20 01:05 Hgb 7.9 gm/dl (10.1-14.3) L 07/19/20 01:05 Hct 24.5 % (30.3-42.9) L 07/19/20 01:05 MCV 89 fl (79-97) 07/19/20 01:05 MCH 29 pg (28-32) 07/19/20 01:05 MCHC 32 % (30-34) 07/19/20 01:05 RDW 17.6 % (13.2-15.2) H 07/19/20 01:05 Plt Count 312 K/mm3 (140-440) 07/19/20 01:05 Lymph % (Auto) 11.6 % (13.4-35.0) L 07/19/20 01:05 [place] % (Auto) 13.1 % (0.0-7.3) H 07/19/20 01:05 Eos % (Auto) 3.7 % (0.0-4.3) 07/19/20 01:05 Baso % (Auto) 0.7 % (0.0-1.8) 07/19/20 01:05 Lymph # (Auto) 1.0 K/mm3 (1.2-5.4) L 07/19/20 01:05 [place] # (Auto) 1.1 K/mm3 (0.0-0.8) H 07/19/20 01:05 Eos # (Auto) 0.3 K/mm3 (0.0-0.4) 07/19/20 01:05 Baso # (Auto) 0.1 K/mm3 (0.0-0.1) 07/19/20 01:05 Add Manual Diff Complete 07/13/20 04:53 Total Counted 100 07/13/20 04:53 Seg Neutrophils % 70.9 % (40.0-70.0) H 07/19/20 01:05 Seg Neuts % (Manual) 84.0 % (40.0-70.0) H 07/13/20 04:53 Band Neutrophils % 1.0 % 07/13/20 04:53 Lymphocytes % (Manual) 7.0 % (13.4-35.0) L 07/13/20 04:53 Reactive Lymphs % (Man) 0 % 07/13/20 04:53 Monocytes % (Manual) 5.0 % (0.0-7.3) 07/13/20 04:53 Eosinophils % (Manual) 1.0 % (0.0-4.3) 07/13/20 04:53 Basophils % (Manual) 0 % (0.0-1.8) 07/13/20 04:53 Metamyelocytes % 2.0 % 07/13/20 04:53 Myelocytes % 0 % 07/13/20 04:53 Promyelocytes % 0 % 07/13/20 04:53 Blast Cells % 0 % 07/13/20 04:53 Nucleated RBC % Not Reportable 07/13/20 04:53 Seg Neutrophils # 5.9 K/mm3 (1.8-7.7) 07/19/20 01:05 Seg Neutrophils # Man 7.1 K/mm3 (1.8-7.7) 07/13/20 04:53 Band Neutrophils # 0.1 K/mm3 07/13/20 04:53 Lymphocytes # (Manual) 0.6 K/mm3 (1.2-5.4) L 07/13/20 04:53 Abs React Lymphs (Man) 0.0 K/mm3 07/13/20 04:53 Monocytes # (Manual) 0.4 K/mm3 (0.0-0.8) 07/13/20 04:53 Eosinophils # (Manual) 0.1 K/mm3 (0.0-0.4) 07/13/20 04:53 Basophils # (Manual) 0.0 K/mm3 (0.0-0.1) 07/13/20 04:53 Metamyelocytes # 0.2 K/mm3 07/13/20 04:53 Myelocytes # 0.0 K/mm3 07/13/20 04:53 Promyelocytes # 0.0 K/mm3 07/13/20 04:53 Blast Cells # 0.0 K/mm3 07/13/20 04:53 WBC Morphology Not Reportable 07/13/20 04:53 Hypersegmented Neuts Not Reportable 07/13/20 04:53 Hyposegmented Neuts Not Reportable 07/13/20 04:53 Hypogranular Neuts Not Reportable 07/13/20 04:53 Smudge Cells Not Reportable 07/13/20 04:53 Toxic Granulation Not Reportable 07/13/20 04:53 Toxic Vacuolation Not Reportable 07/13/20 04:53 Dohle Bodies Not Reportable 07/13/20 04:53 Pelger-Huet Anomaly Not Reportable 07/13/20 04:53 Sanjuanita Rods Not Reportable 07/13/20 04:53 Platelet Estimate Consistent w auto 07/13/20 04:53 Clumped Platelets Not Reportable 07/13/20 04:53 Plt Clumps, EDTA Not Reportable 07/13/20 04:53 Large Platelets Not Reportable 07/13/20 04:53 Giant Platelets Not Reportable 07/13/20 04:53 Platelet Satelliting Not Reportable 07/13/20 04:53 Plt Morphology Comment Not Reportable 07/13/20 04:53 RBC Morphology Not Reportable 07/13/20 04:53 Dimorphic RBCs Not Reportable 07/13/20 04:53 Polychromasia Not Reportable 07/13/20 04:53 Hypochromasia Not Reportable 07/13/20 04:53 Poikilocytosis Not Reportable 07/13/20 04:53 Anisocytosis 1+ 07/13/20 04:53 Microcytosis Not Reportable 07/13/20 04:53 Macrocytosis Not Reportable 07/13/20 04:53 Spherocytes Not Reportable 07/13/20 04:53 Pappenheimer Bodies Not Reportable 07/13/20 04:53 Sickle Cells Not Reportable 07/13/20 04:53 Target Cells Not Reportable 07/13/20 04:53 Tear Drop Cells Not Reportable 07/13/20 04:53 Ovalocytes Not Reportable 07/13/20 04:53 Helmet Cells Not Reportable 07/13/20 04:53 [place] Bodies Not Reportable 07/13/20 04:53 [place] Rings Not Reportable 07/13/20 04:53 [place] Cells Not Reportable 07/13/20 04:53 Bite Cells Not Reportable 07/13/20 04:53 Crenated Cell Not Reportable 07/13/20 04:53 Elliptocytes Not Reportable 07/13/20 04:53 Acanthocytes (Spur) Not Reportable 07/13/20 04:53 Rouleaux Not Reportable 07/13/20 04:53 Hemoglobin C Crystals Not Reportable 07/13/20 04:53 Schistocytes Not Reportable 07/13/20 04:53 Malaria parasites Not Reportable 07/13/20 04:53 Kev Bodies Not Reportable 07/13/20 04:53 Hem Pathologist Commnt No 07/13/20 04:53 PT 14.2 Sec. (12.2-14.9) 05/29/20 15:10 INR 1.08 (0.87-1.13) 05/29/20 15:10 APTT 27.2 Sec. (24.2-36.6) 05/29/20 15:10 D-Dimer 2310.15 ng/mlDDU (0-234) H 06/29/20 14:45 Heparin Anti-Xa Level 0.34 U.I./ml (0.3-0.7) 06/19/20 10:46 ABG pH 7.382 (7.320-7.450) 07/18/20 04:24 POC ABG pCO2 44.1 mmHg (32.0-48.0) 07/18/20 04:24 ABG pCO2 47.0 mm Hg 07/05/20 13:05 ABG Oxyhemoglobin 92.6 (94-98) L 06/23/20 12:34 POC ABG pO2 86.8 mmHg (83-108) 07/18/20 04:24 ABG pO2 78.3 mm Hg (80.0-90.0) L 07/05/20 13:05 POC ABG HCO3 25.6 07/18/20 04:24 ABG HCO3 23.4 mmol/L (20.0-26.0) 07/05/20 13:05 ABG O2 Saturation 96.1 % (95.0-99.0) 07/05/20 13:05 ABG O2 Content 0.3 (0.0-44) 07/05/20 13:05 POC ABG Base Excess 0.4 07/18/20 04:24 ABG Base Excess -2.6 mmol/L (-2.0-3.0) L 07/05/20 13:05 ABG Hemoglobin 8.8 (12.0-17.5) L 07/18/20 04:24 ABG Carboxyhemoglobin 1.7 % (0.0-5.0) 07/05/20 13:05 ABG Methemoglobin 0.2 % (0.0-1.5) 07/05/20 13:05 VBG pH 7.152 (7.320-7.420) L* 05/28/20 13:47 ABG Sodium 131.6 mmol/L (136.0-145.0) L 07/18/20 04:24 ABG Potassium 4.9 mmol/L (3.40-4.50) H 07/18/20 04:24 ABG Chloride 104.0 mmol/L (98-107) 07/18/20 04:24 ABG Glucose 131 mg/dL (65-95) H 07/18/20 04:24 Carboxyhemoglobin 0.5 (0.5-1.5) 06/23/20 12:34 Oxyhemoglobin 97.4 % (95.0-99.0) 07/05/20 13:05 FiO2 30.0 07/18/20 04:24 Sodium 137 mmol/L (137-145) 07/19/20 01:05 Potassium 4.9 mmol/L (3.6-5.0) 07/19/20 01:05 Chloride 101.6 mmol/L (98-107) 07/19/20 01:05 Carbon Dioxide 22 mmol/L (22-30) 07/19/20 01:05 Anion Gap 18 mmol/L 07/19/20 01:05 BUN 86 mg/dL (7-17) H 07/19/20 01:05 Creatinine 1.7 mg/dL (0.6-1.2) H 07/19/20 01:05 Estimated GFR 30 ml/min 07/19/20 01:05 BUN/Creatinine Ratio 51 % 07/19/20 01:05 Glucose 149 mg/dL (65-100) H 07/19/20 01:05 POC Glucose 176 (70-105) H 07/19/20 05:54 Lactic Acid 0.60 mmol/L (0.7-2.0) L 06/27/20 05:00 Calcium 8.8 mg/dL (8.4-10.2) 07/19/20 01:05 Ferritin 223.6 ng/mL (10.0-200.0) H 06/29/20 14:45 Magnesium 2.50 mg/dL (1.7-2.3) H 07/08/20 04:14 Lactate Dehydrogenase 367 units/L (91-180) H 06/29/20 14:45 Total Bilirubin < 0.20 mg/dL (0.1-1.2) 07/10/20 10:41 AST 25 units/L (5-40) 07/10/20 10:41 ALT 11 units/L (7-56) 07/10/20 10:41 Alkaline Phosphatase 131 units/L (35-129) H 07/10/20 10:41 C-Reactive Protein 3.60 mg/dL (0.00-1.30) H 06/29/20 14:45 Total Creatine Kinase 300 units/L (30-135) H 07/01/20 06:01 CK-MB (CK-2) 2.0 ng/mL (0.0-4.0) 07/01/20 06:01 CK-MB (CK-2) Rel Index 0.6 (0-4) 07/01/20 06:01 Troponin T 0.067 ng/mL (0.00-0.029) H 07/01/20 06:01 Total Protein 5.2 g/dL (6.3-8.2) L 07/10/20 10:41 Albumin 1.6 g/dL (3.9-5) L 07/10/20 10:41 Albumin/Globulin Ratio 0.4 % 07/10/20 10:41 Triglycerides 142 mg/dL (2-149) 07/01/20 06:01 Cholesterol 137 mg/dL (50-199) 07/01/20 06:01 LDL Cholesterol Direct 62 mg/dL (50-130) 07/01/20 06:01 HDL Cholesterol 61 mg/dL (40-59) H 07/01/20 06:01 Cholesterol/HDL Ratio 2.24 % 07/01/20 06:01 Procalcitonin 0.18 ng/mL (<0.15) 07/14/20 04:55 Arterial Blood Glucose 131 mg/dL (65-95) H 07/18/20 04:24 Arterial Blood Ionized Calcium 5.1 mg/dL (4.6-5.3) 07/18/20 04:24 Urine Color Yellow (Yellow) 06/06/20 04:00 Urine Turbidity Cloudy (Clear) 06/06/20 04:00 Urine pH 5.0 (5.0-7.0) 06/06/20 04:00 Ur Specific [place] 1.012 (1.003-1.030) 06/06/20 04:00 Urine Protein 100 mg/dl mg/dL (Negative) 06/06/20 04:00 Urine Glucose (UA) 50 mg/dL (Negative) 06/06/20 04:00 Urine Ketones Neg mg/dL (Negative) 06/06/20 04:00 Urine Blood Sm (Negative) 06/06/20 04:00 Urine Nitrite Neg (Negative) 06/06/20 04:00 Urine Bilirubin Neg (Negative) 06/06/20 04:00 Urine Urobilinogen < 2.0 mg/dL (<2.0) 06/06/20 04:00 Ur Leukocyte Esterase Neg (Negative) 06/06/20 04:00 Urine WBC (Auto) 15.0 /HPF (0.0-6.0) H 06/06/20 04:00 Urine RBC (Auto) 23.0 /HPF (0.0-6.0) 06/06/20 04:00 U Epithel Cells (Auto) 8.0 /HPF (0-13.0) 06/06/20 04:00 Urine Bacteria (Auto) 2+ /HPF (Negative) 06/06/20 04:00 Amorphous Crystals 1+ 06/06/20 04:00 Hyaline Casts 16 /LPF 06/06/20 04:00 Urine Mucus 2+ /HPF 06/06/20 04:00 Urine Yeast (Budding) 2+ /HPF 06/03/20 Unknown Urine Creatinine 33.3 mg/dL (0.1-20.0) H 07/06/20 13:20 Urine Sodium 21 mmol/L 07/06/20 13:20 Urine Total Protein 196 mg/dL (5-11.8) H 06/06/20 04:00 Nasal Screen MRSA (PCR) Negative (Negative) 06/29/20 08:30 Coronavirus (PCR) Positive (Negative) A 07/14/20 08:04 Blood Type A POSITIVE 07/05/20 02:30 Antibody Screen Negative 07/05/20 02:30 Crossmatch See Detail 07/05/20 02:30 - Diagnostic Impressions Diagnostic Impressions: Echocardiogram Limited Views 05/29/20 13:52 Transthoracic Echocardiogram Indication: Pulm Embolus BP: 169/76 HR: 85 Conclusions *Limited study for RV size post cardiopulmonar arrest. *RV is only slightly dilated, no significant difference from prior echo 05/13/2020. *Global left ventricular systolic function is at the lower limits of normal. *The estimated ejection fraction is 45-50%. *Mild to moderate concentric left ventricular hypertrophy is observed. *The left and right atria are both mild to moderately dilated. Findings Left Ventricle: The left ventricular chamber size is mildly dilated. Mild to moderate concentric left ventricular hypertrophy is observed. Global left ventricular systolic function is at the lower limits of normal. The estimated ejection fraction is 45-50%. Left Atrium: The left atrium is mild to moderately dilated. Right Ventricle: The right ventricle is slightly dilated. Right Atrium: The right atrium is mild to moderately dilated. Aortic Valve: The aortic valve leaflets are moderately thickened. Mitral Valve: There is mitral annular calcification. The mitral valve leaflets are moderately thickened. Tricuspid Valve: The tricuspid valve leaflets are mildly thickened. Pericardium: A trivial pericardial effusion is visualized. NDUM: 05/29/20 1808 Amended Report Transthoracic Echocardiogram Indication: Pulm Embolus BP: 169/76 HR: 85 Conclusions *Limited study for RV size post cardiopulmonary arrest. *RV is only slightly dilated, no significant difference from prior echo 05/13/2020. *Global left ventricular systolic function is at the lower limits of normal. *The estimated ejection fraction is 45-50%. *Mild to moderate concentric left ventricular hypertrophy is observed. *The left and right atria are both mild to moderately dilated. Findings Left Ventricle: The left ventricular chamber size is mildly dilated. Mild to moderate concentric left ventricular hypertrophy is observed. Global left ventricular systolic function is at the lower limits of normal. The estimated ejection fraction is 45-50%. Left Atrium: The left atrium is mild to moderately dilated. Right Ventricle: The right ventricle is slightly dilated. Right Atrium: The right atrium is mild to moderately dilated. Aortic Valve: The aortic valve leaflets are moderately thickened. Mitral Valve: There is mitral annular calcification. The mitral valve leaflets are moderately thickened. Tricuspid Valve: The tricuspid valve leaflets are mildly thickened. Pericardium: A trivial pericardial effusion is visualized. Helm/IV: Voiding Method External Female Catheter IV Catheter Type [Left Wrist] Peripheral IV IV Catheter Type [Left Upper Mid-line arm] IV Catheter Type [Right CVL Internal Jugular] IV Catheter Type [Right Hand] INT / Saline Lock IV Catheter Type [Right Wrist] Not found on patient IV Catheter Type [Left Hand] INT / Saline Lock IV Catheter Type [Left INT / Saline Lock Antecubital] IV Catheter Type [Right Peripheral IV Forearm] IV Catheter Type [Left Leg] Intra-osseous Active Medications - Current Medications Current Medications: Generic Name Dose Route Start Last Admin Trade Name Freq PRN Reason Stop Dose Admin Acetaminophen 650 mg 06/09/20 10:57 06/29/20 21:18 Tylenol FEEDTUBE 650 mg Q6H PRN Administration Fever >101 Amlodipine Besylate 10 mg 06/02/20 11:00 07/18/20 11:57 Amlodipine PO 10 mg DAILY NELSON Administration Lipase/Protease/Amylase 1 each 05/29/20 13:39 07/07/20 10:[address] 10,500 Unit FEEDTUBE 1 each PRN PRN Administration For Clogged Feeding Tube Carvedilol 12.5 mg 06/03/20 10:00 07/18/20 21:30 Coreg PO 12.5 mg BID NELSON Administration Clonidine HCl 0.2 mg 07/16/20 10:00 07/19/20 02:50 Catapres PO 0.2 mg Q8H NELSON Administration Glycopyrrolate 2 mg 06/09/20 14:00 07/18/20 21:31 Glycopyrrolate PO 2 mg TID NELSON Administration Heparin Sodium (Porcine) 5,000 unit 06/30/20 14:00 07/19/20 07:01 Heparin SUB-Q 5,000 unit Q8HR NELSON Administration Hydralazine HCl 100 mg 07/14/20 14:00 07/18/20 21:29 Apresoline PO 100 mg TID NELSON Administration Hydrophilic Ointment 1 applic 05/28/20 13:49 Vaseline Lip Therapy TP Q2HR PRN Dry Lips Insulin Glargine 10 units 06/08/20 22:00 07/18/20 21:31 Lantus SUB-Q 10 units QHS NELSON Administration Insulin Human Lispro 0 unit 05/29/20 18:00 07/19/20 07:36 Humalog SUB-Q Not Given Q6H COUNT INCLUDES THE [facility] Protocol Labetalol HCl 20 mg 06/03/20 09:00 07/19/20 03:32 Labetalol IV 20 mg Q4H PRN Administration HYPERTENSION Lansoprazole 30 mg 06/05/20 22:00 07/18/20 21:30 Prevacid Solutab FEEDTUBE 30 mg BID NELSON Administration Modafinil 200 mg 07/18/20 10:00 07/18/20 11:57 Provigil PO 200 mg DAILY NELSON Administration Multi-Ingred Cream/Lotion/Oil/Oint 1 applic 05/28/20 13:49 Artificial Tears Ophth Oint OU Q4HR PRN Dry Eye(s) Ondansetron HCl 4 mg 06/02/20 09:00 06/09/20 16:48 Zofran IV 4 mg Q8H PRN Administration Nausea And Vomiting Senna 17.6 mg 06/03/20 10:00 07/18/20 21:32 Senokot FEEDTUBE 17.6 mg BID NELSON Administration Simple Syrup 15 ml 05/29/20 13:39 Simple Syrup FEEDTUBE PRN PRN Hypoglycemia Simple Syrup 30 ml 05/29/20 13:39 Simple Syrup FEEDTUBE PRN PRN Hypoglycemia Sodium Bicarbonate 325 mg 05/29/20 13:39 07/07/20 10:36 Sodium Bicarbonate FEEDTUBE 325 mg PRN PRN Administration For Clogged Feeding Tube Sodium Chloride 10 ml 05/28/20 22:00 07/18/20 22:00 Sodium Chloride Flush Syringe 10 Ml IV 10 ml BID NELSON Administration Sodium Chloride 10 ml 05/28/20 19:08 06/16/20 17:50 Sodium Chloride Flush Syringe 10 Ml IV 10 ml PRN PRN Administration LINE FLUSH Nutrition/Malnutrition Assess - Dietary Evaluation Nutrition/Malnutrition Findings: Nutrition Notes Start: 05/29/20 11:45 Freq: Status: Active Protocol: Document 07/09/20 11:47 [email or web address] (Rec: 07/09/20 11:53 [email or web address]) Co-Sign 07/09/20 11:47 Nutrition Notes Initial or Follow up Reassessment Current Diagnosis Acute Kidney Injury,Diabetes, Heart Failure,Respiratory Failure Other Pertinent Diagnosis COVID-19 (+), Pulmonary edema, dysphagia Current Diet Glucerna 1.2 at 55ml/hr Labs/Tests Na 136 BUN 84 Cr 2.8 BG 109 Mg 2.5 Pertinent Medications Reviewed Height 5 ft 6 in Weight 123 kg [place] Body Weight (kg) 59.09 BMI 43.7 Weight Status Morbidly Obese Subjective/Other Information F/U TF tolerance. Per RN, pt tolerating TF and running at goal rate. Percent of energy/protein needs met: 99%/53% Burn Absent Trauma Absent Current % PO Negligible Minimum of two criteria No physical signs of malnutrition Fluid Accumulation Mild (non-severe) #1 Nutrition Diagnosis Inadequate oral intake Diagnosis Progress(for reassessment Continues documentation) Is patient on ventilator? Yes Is Patient Ambulatory and/or Out of Bed No REE-([facility]-confined to bed) 2172.576 Kcal/Kg value to use for calculation 13 Approximate Energy Requirements Using 1599 kcal/Kg Calculation Used for Recommendations Kcal/kg Additional Notes Protein needs up to 148g (up to 2.5g/kg IBW) Fluid needs 1ml/kcal Nutrition Intervention Change Diet Order: Change TF Nutrition Support: Nepro at 40ml/hr Flush 150ml q4h Kcal 1,728 Protein (gm) 78 Fluid (mL) 697 Goal #1 TF tolerance Goal #2 TF to meet at least 65%-70% energy and 80% protein needs Anticipated Discharge Needs: Unable to determine at this time Follow-Up By: 07/20/20 Additional Comments F/U for TF tolerance
[2020-07-19] MEDS: SENNOSIDES ORAL LIQD 8.8 MG/5 ML ORAL LIQD FEEDTUBE SCH ×2 (09:13→22:04)
[2020-07-19] MEDS: LANSOPRAZOLE 30 MG SOLUTAB FEEDTUBE SCH ×2 (09:13→22:03)
[2020-07-19] MEDS: MODAFINIL 100 MG TAB PO SCH (09:14)
[2020-07-19] MEDS: amLODIPine 10 MG TAB PO SCH (09:14)
[2020-07-19] MEDS: carvediloL 12.5 MG TAB PO SCH ×2 (09:15→22:04)
[2020-07-19] MEDS: hydrALAZINE 100 MG TAB PO SCH ×3 (09:15→19:48)
[2020-07-19] MEDS: GLYCOPYRROLATE 2 MG TAB PO SCH ×3 (09:16→19:48)
--- NOTE | 2020-07-19 12:52 | Progress Note ---
Assessment and Plan Cardiopulmoanry arrest 06/26/2020 with ROSC Acute hypoxemic respiratory failure , extubated now re-intubated Anemia s/p PRBC Severe COVID infection Multifocal pneumonia Morbid obesity Acute toxic metabolic encephalopathy AVANI secondary to COVID/vasomotor nephropathy Bilateral pulmonary edema. Bilateral pleural effusions. History of congestive heart failure. History of pulmonary hypertension. History of hypertension. Diabetes. Obesity hypoventilation syndrome. Oropharyngeal dysphagia. Trend temperature curve and WCC Daily SBTs as tolerated, her mental status precludes liberation from MVS Continue to avoid nephrotoxins, closely monitor renal function, dose all medications for renal function COVID positive, trach /PEG on hold Neurology consult- unable to give recommendations on prognosis( see note) Supportive transfusions as indicated CXR and ABG as clinically indicated - VAP bundle addressed -Aspiration precautions, HOB >40 -lung protective strategies-ARDS. net - continue bronchodilators with pulmonary hygiene per RT - wean per pulmonary driven protocols otherwise - continue to avoid benzodiazepines, reduce the possibility of delirium - prn analgesia per CPOT score - Continue to wean supplemental oxygen for target O2 sats > 92% -Continue to hold sedation, if needed intermittent dosing - conservative fluid management measures as tolerated by hemodynamics and renal function - Bronchodilators with pulmonary hygiene per RT - Accuchecks with glycemic control per SSI (While critically ill target blood glucose of 140-180 mg/dL; avoid hypoglycemia) - Maintenance of sleep-wake cycle, avoid delirium - Aspiration precautions, HOB >40 - Stress ulcer prophylaxis -Famotidine - Mobility protocol, off loading and skin assessment for pressure ulcer prevention - Supportive transfusions as indicated to keep HgB >7g/dL COVID SPECIFIC INTERVENTIONS -Airborne, contact isolation for COVID per facility protocols - s/p Remdesivir -IV steroids-Dexamethasone -Trend d-dimer,and other inflammatory markers per facility protocol -Convalescent plasma therapy per facility protocol -Continue all supportive care Discussed with the ICU team-RT,RN, Life threatening condition- Cardiopulmonary arrest with ROSC, Sepsis ;COVID 19 acute hypoxemic respiratory failure on MVS Mortality/Morbidity- High Complexity of medical decision making- High CONDITION: CRITICAL PROGNOSIS: GUARDED CODE STATUS: FULL CODE The high probability of a clinically significant, sudden or life-threatening deterioration of the [respiratory & neurology, renal ] system(s) required my full and direct attention, intervention and personal management. The aggregate critical care time was [32] minutes without overlap. Time includes spent on; [x] Data Review and interpretation [x] Patient assessment and monitoring of vital signs [x] Documentation [x] Medication orders and management Subjective Date of service: 07/19/20 Principal diagnosis: Ac hypoxemic resp failure; COVID-19; pneumonia; CHF; Pulm HTN; OHS; DM II Interval history: Patient is seen today for: Ac hypoxemic resp failure s/p Cardiopulmonary arrest with ROSC; Coronavirus-19 infection; pneumonia; Pulmonary edema; Bilateral p leural effusions; CHF; Morbid obesity; pulmonary hypertension; OHS; DM II Seen and examined at bedside; 24hour events reviewed; nursing and respiratory care staff consulted; Vitals, labs,medications, chart reviewed. Remains on MVS, no fevers, Did not tolerate PS trials today Mental status changes persist, but grimaces to pain and will open her eyes with sternal rub Tolerating tube feedings, No adverse overnight events 07/19/2020 Trach on hold secondary to recent positive COVID testing Neurology prognostication unable to be completed as an EEG was apparently cancelled secondary to COVID status, patient's habitus is such that she could not fit into the MRI machine No new issues otherwise, placed on PSV 10 and she is tolerating it No fevers, mental status changes persist, no adverse overnight events reported by RN or RT Objective Vital Signs - 12hr 07/19/20 07/19/20 07/19/20 01:00 01:30 02:00 Temperature Pulse Rate 75 74 73 Pulse Rate [ From Monitor] Respiratory 19 16 17 Rate Blood Pressure 167/61 165/63 167/64 O2 Sat by Pulse 94 94 94 Oximetry 07/19/20 07/19/20 07/19/20 02:30 03:00 03:30 Temperature Pulse Rate 73 72 68 Pulse Rate [ From Monitor] Respiratory 16 18 17 Rate Blood Pressure 170/65 171/63 164/60 O2 Sat by Pulse 95 95 95 Oximetry 07/19/20 07/19/20 07/19/20 03:32 03:37 03:48 Temperature 98.4 F Pulse Rate 68 69 Pulse Rate [ From Monitor] Respiratory Rate Blood Pressure 171/63 164/60 O2 Sat by Pulse 97 Oximetry 07/19/20 07/19/20 07/19/20 04:00 04:30 05:00 Temperature Pulse Rate 69 69 73 Pulse Rate [ 69 From Monitor] Respiratory 14 17 16 Rate Blood Pressure 165/63 172/63 170/71 O2 Sat by Pulse 95 95 95 Oximetry 07/19/20 07/19/20 07/19/20 05:30 06:00 06:30 Temperature Pulse Rate 67 66 67 Pulse Rate [ From Monitor] Respiratory 14 11 L 17 Rate Blood Pressure 162/65 162/65 162/61 O2 Sat by Pulse 96 98 96 Oximetry 07/19/20 07/19/20 07/19/20 07:00 07:30 07:58 Temperature Pulse Rate 69 69 72 Pulse Rate [ From Monitor] Respiratory 14 17 Rate Blood Pressure 164/76 161/63 163/63 O2 Sat by Pulse 95 95 98 Oximetry 07/19/20 07/19/20 07/19/20 08:00 08:05 08:30 Temperature 98.8 F Pulse Rate 68 69 71 Pulse Rate [ 69 From Monitor] Respiratory 16 20 21 Rate Blood Pressure 163/63 162/61 161/58 O2 Sat by Pulse 96 97 95 Oximetry 07/19/20 07/19/20 07/19/20 09:00 09:14 09:15 Temperature Pulse Rate 71 69 69 Pulse Rate [ From Monitor] Respiratory 24 Rate Blood Pressure 162/61 162/61 161/62 O2 Sat by Pulse 95 Oximetry 07/19/20 07/19/20 07/19/20 09:30 10:00 10:30 Temperature Pulse Rate 69 68 68 Pulse Rate [ From Monitor] Respiratory 19 20 19 Rate Blood Pressure 165/60 158/57 158/63 O2 Sat by Pulse 95 96 95 Oximetry 07/19/20 07/19/20 07/19/20 11:00 11:28 11:30 Temperature Pulse Rate 71 69 67 Pulse Rate [ From Monitor] Respiratory 21 19 Rate Blood Pressure 151/60 162/61 156/59 O2 Sat by Pulse 96 95 Oximetry Constitutional: appears uncomfortable, other (elderly looking obese female on HFNC with mildly increased respiratory effort at rest on MVS) Eyes: non-icteric ENT: oropharynx dry, other (ETT 23-24 cm AYAN) Neck: supple, no lymphadenopathy, no JVD, other (large neck circumference) Effort: mildly labored Ascultation: Bilateral: clear, diminished breath sounds, rales, rhonchi Percussion: Bilateral: not dull Cardiovascular: regular rate and rhythm, other (S1,S2) Gastrointestinal: normoactive bowel sounds, soft, non-tender, non-distended Integumentary: normal Extremities: no cyanosis, pink and warm, pulses normal, no ischemia or petechiae, edema (trace) Neurologic: pupils equal and round, unable to assess, other (lethargic to obtunded) Psychiatric: other (unable to assess re: AMS) CBC and BMP: 07/19/20 01:05 07/19/20 01:05 ABG, PT/INR, D-dimer: ABG ABG pH 7.382 (7.320-7.450) 07/18/20 04:24 POC ABG pCO2 44.1 mmHg (32.0-48.0) 07/18/20 04:24 ABG pCO2 47.0 mm Hg 07/05/20 13:05 POC ABG pO2 86.8 mmHg (83-108) 07/18/20 04:24 ABG pO2 78.3 mm Hg (80.0-90.0) L 07/05/20 13:05 POC ABG HCO3 25.6 07/18/20 04:24 ABG O2 Saturation 96.1 % (95.0-99.0) 07/05/20 13:05 PT/INR, D-dimer PT 14.2 Sec. (12.2-14.9) 05/29/20 15:10 INR 1.08 (0.87-1.13) 05/29/20 15:10 D-Dimer 2310.15 ng/mlDDU (0-234) H 06/29/20 14:45 Abnormal lab findings: Abnormal Labs 05/28/20 05/28/20 05/28/20 13:29 13:47 13:47 WBC RBC Hgb Hct MCHC RDW 15.3 H Lymph % (Auto) [place] % (Auto) Eos % (Auto) Lymph # [place] # Lymph # (Auto) [place] # (Auto) Seg Neutrophils % Seg Neuts % (Manual) Lymphocytes % (Manual) Seg Neutrophils # Seg Neutrophils # Man Lymphocytes # (Manual) Monocytes % (Manual) Eosinophils % (Manual) Monocytes # (Manual) Eosinophils # (Manual) D-Dimer Heparin Anti-Xa Level ABG pH POC ABG pCO2 POC ABG pO2 ABG pO2 ABG HCO3 ABG O2 Saturation ABG Base Excess ABG Hemoglobin ABG Oxyhemoglobin VBG pH ABG Sodium ABG Potassium ABG Glucose Oxyhemoglobin Sodium Potassium 6.6 H* Chloride 109.2 H Carbon Dioxide 17 L BUN 29 H Creatinine 1.3 H Glucose 265 H POC Glucose 248 H Lactic Acid Calcium 8.1 L Ferritin AST 63 H Alkaline Phosphatase Magnesium Lactate Dehydrogenase Total Creatine Kinase 301 H CK-MB (CK-2) 4.3 H C-Reactive Protein Total Protein 5.4 L Albumin 2.6 L Troponin T HDL Cholesterol Arterial Blood Glucose Urine WBC (Auto) Urine Creatinine Urine Total Protein Coronavirus (PCR) Crossmatch 05/28/20 05/28/20 05/28/20 13:47 13:47 14:46 WBC RBC Hgb Hct MCHC RDW Lymph % (Auto) [place] % (Auto) Eos % (Auto) Lymph # [place] # Lymph # (Auto) [place] # (Auto) Seg Neutrophils % Seg Neuts % (Manual) Lymphocytes % (Manual) Seg Neutrophils # Seg Neutrophils # Man Lymphocytes # (Manual) Monocytes % (Manual) Eosinophils % (Manual) Monocytes # (Manual) Eosinophils # (Manual) D-Dimer Heparin Anti-Xa Level ABG pH POC ABG pCO2 POC ABG pO2 ABG pO2 ABG HCO3 ABG O2 Saturation ABG Base Excess ABG Hemoglobin ABG Oxyhemoglobin VBG pH 7.152 L* ABG Sodium ABG Potassium ABG Glucose Oxyhemoglobin Sodium Potassium 7.2 H* Chloride Carbon Dioxide BUN Creatinine Glucose POC Glucose Lactic Acid 3.40 H* Calcium Ferritin AST Alkaline Phosphatase Magnesium Lactate Dehydrogenase Total Creatine Kinase CK-MB (CK-2) C-Reactive Protein Total Protein Albumin Troponin T HDL Cholesterol Arterial Blood Glucose Urine WBC (Auto) Urine Creatinine Urine Total Protein Coronavirus (PCR) Crossmatch 05/28/20 05/28/20 05/28/20 15:33 15:33 15:51 WBC RBC Hgb Hct MCHC RDW Lymph % (Auto) [place] % (Auto) Eos % (Auto) Lymph # [place] # Lymph # (Auto) [place] # (Auto) Seg Neutrophils % Seg Neuts % (Manual) Lymphocytes % (Manual) Seg Neutrophils # Seg Neutrophils # Man Lymphocytes # (Manual) Monocytes % (Manual) Eosinophils % (Manual) Monocytes # (Manual) Eosinophils # (Manual) D-Dimer 8780.43 H Heparin Anti-Xa Level ABG pH 7.284 L POC ABG pCO2 POC ABG pO2 ABG pO2 273.0 H ABG HCO3 ABG O2 Saturation 99.4 H ABG Base Excess -6.1 L ABG Hemoglobin 17.2 H ABG Oxyhemoglobin VBG pH ABG Sodium ABG Potassium ABG Glucose Oxyhemoglobin Sodium Potassium Chloride Carbon Dioxide BUN Creatinine Glucose 152 H POC Glucose Lactic Acid Calcium Ferritin AST Alkaline Phosphatase Magnesium Lactate Dehydrogenase 365 H Total Creatine Kinase CK-MB (CK-2) C-Reactive Protein Total Protein Albumin Troponin T HDL Cholesterol Arterial Blood Glucose Urine WBC (Auto) Urine Creatinine Urine Total Protein Coronavirus (PCR) Crossmatch 05/28/20 05/28/20 05/28/20 16:30 20:41 23:20 WBC RBC Hgb Hct MCHC RDW Lymph % (Auto) [place] % (Auto) Eos % (Auto) Lymph # [place] # Lymph # (Auto) [place] # (Auto) Seg Neutrophils % Seg Neuts % (Manual) Lymphocytes % (Manual) Seg Neutrophils # Seg Neutrophils # Man Lymphocytes # (Manual) Monocytes % (Manual) Eosinophils % (Manual) Monocytes # (Manual) Eosinophils # (Manual) D-Dimer Heparin Anti-Xa Level ABG pH POC ABG pCO2 POC ABG pO2 ABG pO2 ABG HCO3 ABG O2 Saturation ABG Base Excess ABG Hemoglobin ABG Oxyhemoglobin VBG pH ABG Sodium ABG Potassium ABG Glucose Oxyhemoglobin Sodium Potassium Chloride Carbon Dioxide BUN Creatinine Glucose POC Glucose 225 H 224 H Lactic Acid Calcium Ferritin AST Alkaline Phosphatase Magnesium Lactate Dehydrogenase Total Creatine Kinase CK-MB (CK-2) C-Reactive Protein Total Protein Albumin Troponin T HDL Cholesterol Arterial Blood Glucose Urine WBC (Auto) 17.0 H Urine Creatinine Urine Total Protein Coronavirus (PCR) Crossmatch 05/28/20 05/29/20 05/29/20 Unknown 04:35 04:43 WBC RBC 3.48 L Hgb 9.8 L Hct 29.4 L MCHC RDW 16.0 H Lymph % (Auto) 7.4 L [place] % (Auto) Eos % (Auto) Lymph # 0.7 L [place] # Lymph # (Auto) [place] # (Auto) Seg Neutrophils % 89.1 H Seg Neuts % (Manual) Lymphocytes % (Manual) Seg Neutrophils # 8.1 H Seg Neutrophils # Man Lymphocytes # (Manual) Monocytes % (Manual) Eosinophils % (Manual) Monocytes # (Manual) Eosinophils # (Manual) D-Dimer Heparin Anti-Xa Level ABG pH POC ABG pCO2 POC ABG pO2 ABG pO2 ABG HCO3 19.3 L ABG O2 Saturation ABG Base Excess -4.5 L ABG Hemoglobin 9.7 L ABG Oxyhemoglobin VBG pH ABG Sodium ABG Potassium ABG Glucose Oxyhemoglobin Sodium Potassium Chloride Carbon Dioxide BUN Creatinine Glucose POC Glucose Lactic Acid Calcium Ferritin AST Alkaline Phosphatase Magnesium Lactate Dehydrogenase Total Creatine Kinase CK-MB (CK-2) C-Reactive Protein Total Protein Albumin Troponin T HDL Cholesterol Arterial Blood Glucose Urine WBC (Auto) Urine Creatinine Urine Total Protein Coronavirus (PCR) Positive A Crossmatch 05/29/20 05/29/20 05/29/20 04:43 15:10 17:17 WBC RBC Hgb 9.3 L Hct 28.7 L MCHC RDW Lymph % (Auto) [place] % (Auto) Eos % (Auto) Lymph # [place] # Lymph # (Auto) [place] # (Auto) Seg Neutrophils % Seg Neuts % (Manual) Lymphocytes % (Manual) Seg Neutrophils # Seg Neutrophils # Man Lymphocytes # (Manual) Monocytes % (Manual) Eosinophils % (Manual) Monocytes # (Manual) Eosinophils # (Manual) D-Dimer Heparin Anti-Xa Level ABG pH POC ABG pCO2 POC ABG pO2 ABG pO2 ABG HCO3 ABG O2 Saturation ABG Base Excess ABG Hemoglobin ABG Oxyhemoglobin VBG pH ABG Sodium ABG Potassium ABG Glucose Oxyhemoglobin Sodium Potassium Chloride 110.2 H Carbon Dioxide 18 L BUN 32 H Creatinine 1.4 H Glucose 180 H POC Glucose 147 H Lactic Acid Calcium Ferritin AST Alkaline Phosphatase Magnesium Lactate Dehydrogenase Total Creatine Kinase CK-MB (CK-2) C-Reactive Protein Total Protein Albumin Troponin T HDL Cholesterol Arterial Blood Glucose Urine WBC (Auto) Urine Creatinine Urine Total Protein Coronavirus (PCR) Crossmatch 05/30/20 05/30/20 05/30/20 00:08 00:12 04:15 WBC RBC Hgb Hct MCHC RDW Lymph % (Auto) [place] % (Auto) Eos % (Auto) Lymph # [place] # Lymph # (Auto) [place] # (Auto) Seg Neutrophils % Seg Neuts % (Manual) Lymphocytes % (Manual) Seg Neutrophils # Seg Neutrophils # Man Lymphocytes # (Manual) Monocytes % (Manual) Eosinophils % (Manual) Monocytes # (Manual) Eosinophils # (Manual) D-Dimer Heparin Anti-Xa Level 0.71 H ABG pH 7.460 H POC ABG pCO2 POC ABG pO2 ABG pO2 106.0 H ABG HCO3 18.9 L ABG O2 Saturation ABG Base Excess -4.4 L ABG Hemoglobin 6.8 L ABG Oxyhemoglobin VBG pH ABG Sodium ABG Potassium ABG Glucose Oxyhemoglobin Sodium Potassium Chloride Carbon Dioxide BUN Creatinine Glucose POC Glucose 195 H Lactic Acid Calcium Ferritin AST Alkaline Phosphatase Magnesium Lactate Dehydrogenase Total Creatine Kinase CK-MB (CK-2) C-Reactive Protein Total Protein Albumin Troponin T HDL Cholesterol Arterial Blood Glucose Urine WBC (Auto) Urine Creatinine Urine Total Protein Coronavirus (PCR) Crossmatch 05/30/20 05/30/20 05/30/20 06:07 08:37 12:33 WBC RBC Hgb Hct MCHC RDW Lymph % (Auto) [place] % (Auto) Eos % (Auto) Lymph # [place] # Lymph # (Auto) [place] # (Auto) Seg Neutrophils % Seg Neuts % (Manual) Lymphocytes % (Manual) Seg Neutrophils # Seg Neutrophils # Man Lymphocytes # (Manual) Monocytes % (Manual) Eosinophils % (Manual) Monocytes # (Manual) Eosinophils # (Manual) D-Dimer Heparin Anti-Xa Level 0.85 H ABG pH POC ABG pCO2 POC ABG pO2 ABG pO2 ABG HCO3 ABG O2 Saturation ABG Base Excess ABG Hemoglobin ABG Oxyhemoglobin VBG pH ABG Sodium ABG Potassium ABG Glucose Oxyhemoglobin Sodium Potassium Chloride Carbon Dioxide BUN Creatinine Glucose POC Glucose 182 H 187 H Lactic Acid Calcium Ferritin AST Alkaline Phosphatase Magnesium Lactate Dehydrogenase Total Creatine Kinase CK-MB (CK-2) C-Reactive Protein Total Protein Albumin Troponin T HDL Cholesterol Arterial Blood Glucose Urine WBC (Auto) Urine Creatinine Urine Total Protein Coronavirus (PCR) Crossmatch 05/30/20 05/30/20 05/30/20 15:58 17:57 23:36 WBC RBC Hgb Hct MCHC RDW Lymph % (Auto) [place] % (Auto) Eos % (Auto) Lymph # [place] # Lymph # (Auto) [place] # (Auto) Seg Neutrophils % Seg Neuts % (Manual) Lymphocytes % (Manual) Seg Neutrophils # Seg Neutrophils # Man Lymphocytes # (Manual) Monocytes % (Manual) Eosinophils % (Manual) Monocytes # (Manual) Eosinophils # (Manual) D-Dimer Heparin Anti-Xa Level 1.03 H ABG pH POC ABG pCO2 POC ABG pO2 ABG pO2 ABG HCO3 ABG O2 Saturation ABG Base Excess ABG Hemoglobin ABG Oxyhemoglobin VBG pH ABG Sodium ABG Potassium ABG Glucose Oxyhemoglobin Sodium Potassium Chloride Carbon Dioxide BUN Creatinine Glucose POC Glucose 208 H 185 H Lactic Acid Calcium Ferritin AST Alkaline Phosphatase Magnesium Lactate Dehydrogenase Total Creatine Kinase CK-MB (CK-2) C-Reactive Protein Total Protein Albumin Troponin T HDL Cholesterol Arterial Blood Glucose Urine WBC (Auto) Urine Creatinine Urine Total Protein Coronavirus (PCR) Crossmatch 05/31/20 05/31/20 05/31/20 02:16 03:55 06:16 WBC RBC Hgb 9.2 L Hct 27.5 L MCHC RDW Lymph % (Auto) [place] % (Auto) Eos % (Auto) Lymph # [place] # Lymph # (Auto) [place] # (Auto) Seg Neutrophils % Seg Neuts % (Manual) Lymphocytes % (Manual) Seg Neutrophils # Seg Neutrophils # Man Lymphocytes # (Manual) Monocytes % (Manual) Eosinophils % (Manual) Monocytes # (Manual) Eosinophils # (Manual) D-Dimer Heparin Anti-Xa Level ABG pH POC ABG pCO2 POC ABG pO2 ABG pO2 94.7 H ABG HCO3 18.6 L ABG O2 Saturation ABG Base Excess -5.5 L ABG Hemoglobin 7.9 L ABG Oxyhemoglobin VBG pH ABG Sodium ABG Potassium ABG Glucose Oxyhemoglobin Sodium Potassium Chloride Carbon Dioxide BUN Creatinine Glucose POC Glucose 160 H Lactic Acid Calcium Ferritin AST Alkaline Phosphatase Magnesium Lactate Dehydrogenase Total Creatine Kinase CK-MB (CK-2) C-Reactive Protein Total Protein Albumin Troponin T HDL Cholesterol Arterial Blood Glucose Urine WBC (Auto) Urine Creatinine Urine Total Protein Coronavirus (PCR) Crossmatch 05/31/20 05/31/20 05/31/20 12:20 13:03 18:13 WBC RBC Hgb Hct MCHC RDW Lymph % (Auto) [place] % (Auto) Eos % (Auto) Lymph # [place] # Lymph # (Auto) [place] # (Auto) Seg Neutrophils % Seg Neuts % (Manual) Lymphocytes % (Manual) Seg Neutrophils # Seg Neutrophils # Man Lymphocytes # (Manual) Monocytes % (Manual) Eosinophils % (Manual) Monocytes # (Manual) Eosinophils # (Manual) D-Dimer Heparin Anti-Xa Level ABG pH POC ABG pCO2 POC ABG pO2 ABG pO2 ABG HCO3 ABG O2 Saturation ABG Base Excess ABG Hemoglobin ABG Oxyhemoglobin VBG pH ABG Sodium ABG Potassium ABG Glucose Oxyhemoglobin Sodium Potassium Chloride Carbon Dioxide 18 L BUN 48 H Creatinine 1.6 H Glucose 115 H POC Glucose 128 H 159 H Lactic Acid Calcium 8.3 L Ferritin AST Alkaline Phosphatase Magnesium Lactate Dehydrogenase Total Creatine Kinase CK-MB (CK-2) C-Reactive Protein Total Protein 5.4 L Albumin 2.4 L Troponin T HDL Cholesterol Arterial Blood Glucose Urine WBC (Auto) Urine Creatinine Urine Total Protein Coronavirus (PCR) Crossmatch 05/31/20 06/01/20 06/01/20 23:51 04:00 05:48 WBC RBC Hgb Hct MCHC RDW Lymph % (Auto) [place] % (Auto) Eos % (Auto) Lymph # [place] # Lymph # (Auto) [place] # (Auto) Seg Neutrophils % Seg Neuts % (Manual) Lymphocytes % (Manual) Seg Neutrophils # Seg Neutrophils # Man Lymphocytes # (Manual) Monocytes % (Manual) Eosinophils % (Manual) Monocytes # (Manual) Eosinophils # (Manual) D-Dimer Heparin Anti-Xa Level ABG pH POC ABG pCO2 POC ABG pO2 ABG pO2 109.8 H ABG HCO3 18.8 L ABG O2 Saturation ABG Base Excess -5.9 L ABG Hemoglobin 7.8 L ABG Oxyhemoglobin VBG pH ABG Sodium ABG Potassium ABG Glucose Oxyhemoglobin Sodium Potassium Chloride Carbon Dioxide BUN Creatinine Glucose POC Glucose 171 H 133 H Lactic Acid Calcium Ferritin AST Alkaline Phosphatase Magnesium Lactate Dehydrogenase Total Creatine Kinase CK-MB (CK-2) C-Reactive Protein Total Protein Albumin Troponin T HDL Cholesterol Arterial Blood Glucose Urine WBC (Auto) Urine Creatinine Urine Total Protein Coronavirus (PCR) Crossmatch 06/01/20 06/01/20 06/02/20 12:28 17:29 00:08 WBC RBC Hgb Hct MCHC RDW Lymph % (Auto) [place] % (Auto) Eos % (Auto) Lymph # [place] # Lymph # (Auto) [place] # (Auto) Seg Neutrophils % Seg Neuts % (Manual) Lymphocytes % (Manual) Seg Neutrophils # Seg Neutrophils # Man Lymphocytes # (Manual) Monocytes % (Manual) Eosinophils % (Manual) Monocytes # (Manual) Eosinophils # (Manual) D-Dimer Heparin Anti-Xa Level ABG pH POC ABG pCO2 POC ABG pO2 ABG pO2 ABG HCO3 ABG O2 Saturation ABG Base Excess ABG Hemoglobin ABG Oxyhemoglobin VBG pH ABG Sodium ABG Potassium ABG Glucose Oxyhemoglobin Sodium Potassium Chloride Carbon Dioxide BUN Creatinine Glucose POC Glucose 199 H 209 H 162 H Lactic Acid Calcium Ferritin AST Alkaline Phosphatase Magnesium Lactate Dehydrogenase Total Creatine Kinase CK-MB (CK-2) C-Reactive Protein Total Protein Albumin Troponin T HDL Cholesterol Arterial Blood Glucose Urine WBC (Auto) Urine Creatinine Urine Total Protein Coronavirus (PCR) Crossmatch 06/02/20 06/02/20 06/02/20 04:20 04:20 04:44 WBC RBC Hgb 10.0 L Hct MCHC RDW Lymph % (Auto) [place] % (Auto) Eos % (Auto) Lymph # [place] # Lymph # (Auto) [place] # (Auto) Seg Neutrophils % Seg Neuts % (Manual) Lymphocytes % (Manual) Seg Neutrophils # Seg Neutrophils # Man Lymphocytes # (Manual) Monocytes % (Manual) Eosinophils % (Manual) Monocytes # (Manual) Eosinophils # (Manual) D-Dimer Heparin Anti-Xa Level 0.10 L ABG pH POC ABG pCO2 POC ABG pO2 ABG pO2 150.6 H ABG HCO3 ABG O2 Saturation ABG Base Excess -4.1 L ABG Hemoglobin 11.8 L ABG Oxyhemoglobin VBG pH ABG Sodium ABG Potassium ABG Glucose Oxyhemoglobin Sodium Potassium Chloride Carbon Dioxide BUN Creatinine Glucose POC Glucose Lactic Acid Calcium Ferritin AST Alkaline Phosphatase Magnesium Lactate Dehydrogenase Total Creatine Kinase CK-MB (CK-2) C-Reactive Protein Total Protein Albumin Troponin T HDL Cholesterol Arterial Blood Glucose Urine WBC (Auto) Urine Creatinine Urine Total Protein Coronavirus (PCR) Crossmatch 06/02/20 06/02/20 06/02/20 05:53 12:04 13:49 WBC RBC Hgb Hct MCHC RDW Lymph % (Auto) [place] % (Auto) Eos % (Auto) Lymph # [place] # Lymph # (Auto) [place] # (Auto) Seg Neutrophils % Seg Neuts % (Manual) Lymphocytes % (Manual) Seg Neutrophils # Seg Neutrophils # Man Lymphocytes # (Manual) Monocytes % (Manual) Eosinophils % (Manual) Monocytes # (Manual) Eosinophils # (Manual) D-Dimer Heparin Anti-Xa Level 0.28 L ABG pH POC ABG pCO2 POC ABG pO2 ABG pO2 ABG HCO3 ABG O2 Saturation ABG Base Excess ABG Hemoglobin ABG Oxyhemoglobin VBG pH ABG Sodium ABG Potassium ABG Glucose Oxyhemoglobin Sodium Potassium Chloride Carbon Dioxide BUN Creatinine Glucose POC Glucose 149 H 220 H Lactic Acid Calcium Ferritin AST Alkaline Phosphatase Magnesium Lactate Dehydrogenase Total Creatine Kinase CK-MB (CK-2) C-Reactive Protein Total Protein Albumin Troponin T HDL Cholesterol Arterial Blood Glucose Urine WBC (Auto) Urine Creatinine Urine Total Protein Coronavirus (PCR) Crossmatch 06/02/20 06/02/20 06/03/20 13:49 18:31 00:42 WBC RBC Hgb Hct MCHC RDW Lymph % (Auto) [place] % (Auto) Eos % (Auto) Lymph # [place] # Lymph # (Auto) [place] # (Auto) Seg Neutrophils % Seg Neuts % (Manual) Lymphocytes % (Manual) Seg Neutrophils # Seg Neutrophils # Man Lymphocytes # (Manual) Monocytes % (Manual) Eosinophils % (Manual) Monocytes # (Manual) Eosinophils # (Manual) D-Dimer 769.68 H Heparin Anti-Xa Level ABG pH POC ABG pCO2 POC ABG pO2 ABG pO2 ABG HCO3 ABG O2 Saturation ABG Base Excess ABG Hemoglobin ABG Oxyhemoglobin VBG pH ABG Sodium ABG Potassium ABG Glucose Oxyhemoglobin Sodium Potassium Chloride Carbon Dioxide BUN Creatinine Glucose POC Glucose 225 H 212 H Lactic Acid Calcium Ferritin AST Alkaline Phosphatase Magnesium Lactate Dehydrogenase Total Creatine Kinase CK-MB (CK-2) C-Reactive Protein Total Protein Albumin Troponin T HDL Cholesterol Arterial Blood Glucose Urine WBC (Auto) Urine Creatinine Urine Total Protein Coronavirus (PCR) Crossmatch 06/03/20 06/03/20 06/03/20 05:16 05:16 05:25 WBC 11.4 H RBC Hgb Hct MCHC RDW 16.4 H Lymph % (Auto) [place] % (Auto) Eos % (Auto) Lymph # [place] # Lymph # (Auto) [place] # (Auto) Seg Neutrophils % Seg Neuts % (Manual) Lymphocytes % (Manual) Seg Neutrophils # Seg Neutrophils # Man Lymphocytes # (Manual) Monocytes % (Manual) Eosinophils % (Manual) Monocytes # (Manual) Eosinophils # (Manual) D-Dimer Heparin Anti-Xa Level ABG pH POC ABG pCO2 POC ABG pO2 ABG pO2 160.9 H ABG HCO3 19.4 L ABG O2 Saturation ABG Base Excess -4.9 L ABG Hemoglobin 7.0 L ABG Oxyhemoglobin VBG pH ABG Sodium ABG Potassium ABG Glucose Oxyhemoglobin Sodium Potassium Chloride Carbon Dioxide 18 L BUN 65 H Creatinine 2.0 H Glucose 175 H POC Glucose Lactic Acid Calcium 8.0 L Ferritin AST Alkaline Phosphatase Magnesium Lactate Dehydrogenase Total Creatine Kinase CK-MB (CK-2) C-Reactive Protein Total Protein 5.5 L Albumin 2.2 L Troponin T HDL Cholesterol Arterial Blood Glucose Urine WBC (Auto) Urine Creatinine Urine Total Protein Coronavirus (PCR) Crossmatch 06/03/20 06/03/20 06/03/20 06:07 11:58 18:24 WBC RBC Hgb Hct MCHC RDW Lymph % (Auto) [place] % (Auto) Eos % (Auto) Lymph # [place] # Lymph # (Auto) [place] # (Auto) Seg Neutrophils % Seg Neuts % (Manual) Lymphocytes % (Manual) Seg Neutrophils # Seg Neutrophils # Man Lymphocytes # (Manual) Monocytes % (Manual) Eosinophils % (Manual) Monocytes # (Manual) Eosinophils # (Manual) D-Dimer Heparin Anti-Xa Level ABG pH POC ABG pCO2 POC ABG pO2 ABG pO2 ABG HCO3 ABG O2 Saturation ABG Base Excess ABG Hemoglobin ABG Oxyhemoglobin VBG pH ABG Sodium ABG Potassium ABG Glucose Oxyhemoglobin Sodium Potassium Chloride Carbon Dioxide BUN Creatinine Glucose POC Glucose 177 H 163 H 211 H Lactic Acid Calcium Ferritin AST Alkaline Phosphatase Magnesium Lactate Dehydrogenase Total Creatine Kinase CK-MB (CK-2) C-Reactive Protein Total Protein Albumin Troponin T HDL Cholesterol Arterial Blood Glucose Urine WBC (Auto) Urine Creatinine Urine Total Protein Coronavirus (PCR) Crossmatch 06/03/20 06/03/20 06/04/20 21:50 Unknown 00:26 WBC RBC Hgb Hct MCHC RDW Lymph % (Auto) [place] % (Auto) Eos % (Auto) Lymph # [place] # Lymph # (Auto) [place] # (Auto) Seg Neutrophils % Seg Neuts % (Manual) Lymphocytes % (Manual) Seg Neutrophils # Seg Neutrophils # Man Lymphocytes # (Manual) Monocytes % (Manual) Eosinophils % (Manual) Monocytes # (Manual) Eosinophils # (Manual) D-Dimer Heparin Anti-Xa Level ABG pH POC ABG pCO2 POC ABG pO2 ABG pO2 ABG HCO3 ABG O2 Saturation ABG Base Excess ABG Hemoglobin ABG Oxyhemoglobin VBG pH ABG Sodium ABG Potassium ABG Glucose Oxyhemoglobin Sodium 135 L Potassium Chloride Carbon Dioxide 18 L BUN Creatinine Glucose POC Glucose 241 H Lactic Acid Calcium Ferritin AST Alkaline Phosphatase Magnesium Lactate Dehydrogenase Total Creatine Kinase CK-MB (CK-2) C-Reactive Protein Total Protein Albumin Troponin T HDL Cholesterol Arterial Blood Glucose Urine WBC (Auto) 11.0 H Urine Creatinine Urine Total Protein Coronavirus (PCR) Crossmatch 06/04/20 06/04/20 06/04/20 03:35 04:19 04:19 WBC RBC 3.15 L Hgb 8.9 L Hct 26.8 L D MCHC RDW 15.9 H Lymph % (Auto) 6.0 L [place] % (Auto) Eos % (Auto) Lymph # 0.6 L [place] # Lymph # (Auto) [place] # (Auto) Seg Neutrophils % 86.6 H Seg Neuts % (Manual) Lymphocytes % (Manual) Seg Neutrophils # 9.1 H Seg Neutrophils # Man Lymphocytes # (Manual) Monocytes % (Manual) Eosinophils % (Manual) Monocytes # (Manual) Eosinophils # (Manual) D-Dimer Heparin Anti-Xa Level ABG pH 7.331 L POC ABG pCO2 POC ABG pO2 ABG pO2 ABG HCO3 ABG O2 Saturation ABG Base Excess -4.7 L ABG Hemoglobin 11.0 L ABG Oxyhemoglobin VBG pH ABG Sodium ABG Potassium ABG Glucose Oxyhemoglobin 93.9 L Sodium 136 L Potassium Chloride Carbon Dioxide 20 L BUN 73 H Creatinine 2.0 H Glucose 192 H POC Glucose Lactic Acid Calcium 8.0 L Ferritin AST Alkaline Phosphatase Magnesium Lactate Dehydrogenase 271 H Total Creatine Kinase CK-MB (CK-2) C-Reactive Protein 2.20 H Total Protein 5.0 L Albumin 2.0 L Troponin T HDL Cholesterol Arterial Blood Glucose Urine WBC (Auto) Urine Creatinine Urine Total Protein Coronavirus (PCR) Crossmatch 06/04/20 06/04/20 06/04/20 04:19 05:51 11:48 WBC RBC Hgb Hct MCHC RDW Lymph % (Auto) [place] % (Auto) Eos % (Auto) Lymph # [place] # Lymph # (Auto) [place] # (Auto) Seg Neutrophils % Seg Neuts % (Manual) Lymphocytes % (Manual) Seg Neutrophils # Seg Neutrophils # Man Lymphocytes # (Manual) Monocytes % (Manual) Eosinophils % (Manual) Monocytes # (Manual) Eosinophils # (Manual) D-Dimer 414.52 H Heparin Anti-Xa Level ABG pH POC ABG pCO2 POC ABG pO2 ABG pO2 ABG HCO3 ABG O2 Saturation ABG Base Excess ABG Hemoglobin ABG Oxyhemoglobin VBG pH ABG Sodium ABG Potassium ABG Glucose Oxyhemoglobin Sodium Potassium Chloride Carbon Dioxide BUN Creatinine Glucose POC Glucose 179 H 213 H Lactic Acid Calcium Ferritin AST Alkaline Phosphatase Magnesium Lactate Dehydrogenase Total Creatine Kinase CK-MB (CK-2) C-Reactive Protein Total Protein Albumin Troponin T HDL Cholesterol Arterial Blood Glucose Urine WBC (Auto) Urine Creatinine Urine Total Protein Coronavirus (PCR) Crossmatch 06/04/20 06/05/20 06/05/20 18:25 00:16 05:00 WBC RBC Hgb Hct MCHC RDW Lymph % (Auto) [place] % (Auto) Eos % (Auto) Lymph # [place] # Lymph # (Auto) [place] # (Auto) Seg Neutrophils % Seg Neuts % (Manual) Lymphocytes % (Manual) Seg Neutrophils # Seg Neutrophils # Man Lymphocytes # (Manual) Monocytes % (Manual) Eosinophils % (Manual) Monocytes # (Manual) Eosinophils # (Manual) D-Dimer Heparin Anti-Xa Level ABG pH 7.286 L POC ABG pCO2 POC ABG pO2 ABG pO2 96.2 H ABG HCO3 ABG O2 Saturation ABG Base Excess -6.3 L ABG Hemoglobin 8.8 L ABG Oxyhemoglobin VBG pH ABG Sodium ABG Potassium ABG Glucose Oxyhemoglobin 94.8 L Sodium Potassium Chloride Carbon Dioxide BUN Creatinine Glucose POC Glucose 238 H 183 H Lactic Acid Calcium Ferritin AST Alkaline Phosphatase Magnesium Lactate Dehydrogenase Total Creatine Kinase CK-MB (CK-2) C-Reactive Protein Total Protein Albumin Troponin T HDL Cholesterol Arterial Blood Glucose Urine WBC (Auto) Urine Creatinine Urine Total Protein Coronavirus (PCR) Crossmatch 06/05/20 06/05/20 06/05/20 05:39 07:25 07:25 WBC RBC 2.97 L Hgb 8.7 L Hct 25.7 L MCHC RDW 16.0 H Lymph % (Auto) 8.8 L [place] % (Auto) 13.3 H Eos % (Auto) Lymph # 0.8 L [place] # 1.3 H Lymph # (Auto) [place] # (Auto) Seg Neutrophils % 77.3 H Seg Neuts % (Manual) Lymphocytes % (Manual) Seg Neutrophils # Seg Neutrophils # Man Lymphocytes # (Manual) Monocytes % (Manual) Eosinophils % (Manual) Monocytes # (Manual) Eosinophils # (Manual) D-Dimer Heparin Anti-Xa Level ABG pH POC ABG pCO2 POC ABG pO2 ABG pO2 ABG HCO3 ABG O2 Saturation ABG Base Excess ABG Hemoglobin ABG Oxyhemoglobin VBG pH ABG Sodium ABG Potassium ABG Glucose Oxyhemoglobin Sodium 133 L Potassium Chloride Carbon Dioxide 17 L BUN 89 H Creatinine 2.8 H Glucose 176 H POC Glucose 149 H Lactic Acid Calcium 7.7 L Ferritin AST Alkaline Phosphatase Magnesium Lactate Dehydrogenase Total Creatine Kinase CK-MB (CK-2) C-Reactive Protein Total Protein 4.2 L Albumin 1.9 L Troponin T HDL Cholesterol Arterial Blood Glucose Urine WBC (Auto) Urine Creatinine Urine Total Protein Coronavirus (PCR) Crossmatch 06/05/20 06/05/20 06/05/20 07:25 12:05 15:41 WBC RBC Hgb Hct MCHC RDW Lymph % (Auto) [place] % (Auto) Eos % (Auto) Lymph # [place] # Lymph # (Auto) [place] # (Auto) Seg Neutrophils % Seg Neuts % (Manual) Lymphocytes % (Manual) Seg Neutrophils # Seg Neutrophils # Man Lymphocytes # (Manual) Monocytes % (Manual) Eosinophils % (Manual) Monocytes # (Manual) Eosinophils # (Manual) D-Dimer Heparin Anti-Xa Level 0.76 H 0.81 H ABG pH POC ABG pCO2 POC ABG pO2 ABG pO2 ABG HCO3 ABG O2 Saturation ABG Base Excess ABG Hemoglobin ABG Oxyhemoglobin VBG pH ABG Sodium ABG Potassium ABG Glucose Oxyhemoglobin Sodium Potassium Chloride Carbon Dioxide BUN Creatinine Glucose POC Glucose 198 H Lactic Acid Calcium Ferritin AST Alkaline Phosphatase Magnesium Lactate Dehydrogenase Total Creatine Kinase CK-MB (CK-2) C-Reactive Protein Total Protein Albumin Troponin T HDL Cholesterol Arterial Blood Glucose Urine WBC (Auto) Urine Creatinine Urine Total Protein Coronavirus (PCR) Crossmatch 06/05/20 06/05/20 06/06/20 18:08 23:25 04:00 WBC RBC Hgb Hct MCHC RDW Lymph % (Auto) [place] % (Auto) Eos % (Auto) Lymph # [place] # Lymph # (Auto) [place] # (Auto) Seg Neutrophils % Seg Neuts % (Manual) Lymphocytes % (Manual) Seg Neutrophils # Seg Neutrophils # Man Lymphocytes # (Manual) Monocytes % (Manual) Eosinophils % (Manual) Monocytes # (Manual) Eosinophils # (Manual) D-Dimer Heparin Anti-Xa Level ABG pH POC ABG pCO2 POC ABG pO2 ABG pO2 ABG HCO3 ABG O2 Saturation ABG Base Excess ABG Hemoglobin ABG Oxyhemoglobin VBG pH ABG Sodium ABG Potassium ABG Glucose Oxyhemoglobin Sodium Potassium Chloride Carbon Dioxide BUN Creatinine Glucose POC Glucose 223 H 169 H Lactic Acid Calcium Ferritin AST Alkaline Phosphatase Magnesium Lactate Dehydrogenase Total Creatine Kinase CK-MB (CK-2) C-Reactive Protein Total Protein Albumin Troponin T HDL Cholesterol Arterial Blood Glucose Urine WBC (Auto) 15.0 H Urine Creatinine Urine Total Protein Coronavirus (PCR) Crossmatch 06/06/20 06/06/20 06/06/20 04:00 05:33 05:38 WBC RBC 2.97 L Hgb 8.7 L Hct 26.8 L MCHC RDW 16.8 H Lymph % (Auto) [place] % (Auto) Eos % (Auto) Lymph # [place] # Lymph # (Auto) [place] # (Auto) Seg Neutrophils % Seg Neuts % (Manual) Lymphocytes % (Manual) Seg Neutrophils # Seg Neutrophils # Man Lymphocytes # (Manual) Monocytes % (Manual) Eosinophils % (Manual) Monocytes # (Manual) Eosinophils # (Manual) D-Dimer Heparin Anti-Xa Level ABG pH POC ABG pCO2 POC ABG pO2 ABG pO2 ABG HCO3 ABG O2 Saturation ABG Base Excess ABG Hemoglobin ABG Oxyhemoglobin VBG pH ABG Sodium ABG Potassium ABG Glucose Oxyhemoglobin Sodium Potassium Chloride Carbon Dioxide BUN Creatinine Glucose POC Glucose 186 H Lactic Acid Calcium Ferritin AST Alkaline Phosphatase Magnesium Lactate Dehydrogenase Total Creatine Kinase CK-MB (CK-2) C-Reactive Protein Total Protein Albumin Troponin T HDL Cholesterol Arterial Blood Glucose Urine WBC (Auto) Urine Creatinine 82.2 H Urine Total Protein 196 H Coronavirus (PCR) Crossmatch 06/06/20 06/06/20 06/06/20 05:38 12:25 17:03 WBC RBC Hgb Hct MCHC RDW Lymph % (Auto) [place] % (Auto) Eos % (Auto) Lymph # [place] # Lymph # (Auto) [place] # (Auto) Seg Neutrophils % Seg Neuts % (Manual) Lymphocytes % (Manual) Seg Neutrophils # Seg Neutrophils # Man Lymphocytes # (Manual) Monocytes % (Manual) Eosinophils % (Manual) Monocytes # (Manual) Eosinophils # (Manual) D-Dimer Heparin Anti-Xa Level ABG pH POC ABG pCO2 POC ABG pO2 ABG pO2 ABG HCO3 ABG O2 Saturation ABG Base Excess ABG Hemoglobin ABG Oxyhemoglobin VBG pH ABG Sodium ABG Potassium ABG Glucose Oxyhemoglobin Sodium 134 L Potassium 5.2 H Chloride Carbon Dioxide 18 L BUN 97 H Creatinine 2.5 H Glucose 193 H POC Glucose 239 H 252 H Lactic Acid Calcium 7.5 L Ferritin AST Alkaline Phosphatase Magnesium Lactate Dehydrogenase Total Creatine Kinase CK-MB (CK-2) C-Reactive Protein Total Protein 4.1 L Albumin 1.9 L Troponin T HDL Cholesterol Arterial Blood Glucose Urine WBC (Auto) Urine Creatinine Urine Total Protein Coronavirus (PCR) Crossmatch 06/07/20 06/07/20 06/07/20 00:16 01:49 04:00 WBC RBC 2.91 L Hgb 8.4 L Hct 25.0 L MCHC RDW 16.1 H Lymph % (Auto) 5.7 L [place] % (Auto) 10.5 H Eos % (Auto) Lymph # 0.6 L [place] # 1.1 H Lymph # (Auto) [place] # (Auto) Seg Neutrophils % 83.6 H Seg Neuts % (Manual) Lymphocytes % (Manual) Seg Neutrophils # 9.1 H Seg Neutrophils # Man Lymphocytes # (Manual) Monocytes % (Manual) Eosinophils % (Manual) Monocytes # (Manual) Eosinophils # (Manual) D-Dimer Heparin Anti-Xa Level 0.26 L ABG pH POC ABG pCO2 POC ABG pO2 ABG pO2 ABG HCO3 ABG O2 Saturation ABG Base Excess ABG Hemoglobin ABG Oxyhemoglobin VBG pH ABG Sodium ABG Potassium ABG Glucose Oxyhemoglobin Sodium Potassium Chloride Carbon Dioxide BUN Creatinine Glucose POC Glucose 173 H Lactic Acid Calcium Ferritin AST Alkaline Phosphatase Magnesium Lactate Dehydrogenase Total Creatine Kinase CK-MB (CK-2) C-Reactive Protein Total Protein Albumin Troponin T HDL Cholesterol Arterial Blood Glucose Urine WBC (Auto) Urine Creatinine Urine Total Protein Coronavirus (PCR) Crossmatch 06/07/20 06/07/20 06/07/20 04:00 04:54 05:51 WBC RBC Hgb Hct MCHC RDW Lymph % (Auto) [place] % (Auto) Eos % (Auto) Lymph # [place] # Lymph # (Auto) [place] # (Auto) Seg Neutrophils % Seg Neuts % (Manual) Lymphocytes % (Manual) Seg Neutrophils # Seg Neutrophils # Man Lymphocytes # (Manual) Monocytes % (Manual) Eosinophils % (Manual) Monocytes # (Manual) Eosinophils # (Manual) D-Dimer Heparin Anti-Xa Level ABG pH 7.317 L POC ABG pCO2 POC ABG pO2 ABG pO2 71.4 L ABG HCO3 ABG O2 Saturation 94.3 L ABG Base Excess -4.8 L ABG Hemoglobin 7.1 L ABG Oxyhemoglobin VBG pH ABG Sodium ABG Potassium ABG Glucose Oxyhemoglobin 92.2 L Sodium 133 L Potassium Chloride Carbon Dioxide 18 L BUN 100 H Creatinine 2.5 H Glucose 158 H POC Glucose 168 H Lactic Acid Calcium 7.6 L Ferritin AST Alkaline Phosphatase Magnesium Lactate Dehydrogenase Total Creatine Kinase CK-MB (CK-2) C-Reactive Protein Total Protein 4.7 L Albumin 2.0 L Troponin T HDL Cholesterol Arterial Blood Glucose Urine WBC (Auto) Urine Creatinine Urine Total Protein Coronavirus (PCR) Crossmatch 06/07/20 06/07/20 06/07/20 12:03 17:17 20:10 WBC RBC Hgb Hct MCHC RDW Lymph % (Auto) [place] % (Auto) Eos % (Auto) Lymph # [place] # Lymph # (Auto) [place] # (Auto) Seg Neutrophils % Seg Neuts % (Manual) Lymphocytes % (Manual) Seg Neutrophils # Seg Neutrophils # Man Lymphocytes # (Manual) Monocytes % (Manual) Eosinophils % (Manual) Monocytes # (Manual) Eosinophils # (Manual) D-Dimer Heparin Anti-Xa Level 0.17 L ABG pH POC ABG pCO2 POC ABG pO2 ABG pO2 ABG HCO3 ABG O2 Saturation ABG Base Excess ABG Hemoglobin ABG Oxyhemoglobin VBG pH ABG Sodium ABG Potassium ABG Glucose Oxyhemoglobin Sodium Potassium Chloride Carbon Dioxide BUN Creatinine Glucose POC Glucose 276 H 281 H Lactic Acid Calcium Ferritin AST Alkaline Phosphatase Magnesium Lactate Dehydrogenase Total Creatine Kinase CK-MB (CK-2) C-Reactive Protein Total Protein Albumin Troponin T HDL Cholesterol Arterial Blood Glucose Urine WBC (Auto) Urine Creatinine Urine Total Protein Coronavirus (PCR) Crossmatch 06/08/20 06/08/20 06/08/20 00:02 04:47 04:47 WBC 16.4 H RBC 3.07 L Hgb 8.6 L Hct 26.5 L MCHC RDW 16.3 H Lymph % (Auto) [place] % (Auto) Eos % (Auto) Lymph # [place] # Lymph # (Auto) [place] # (Auto) Seg Neutrophils % Seg Neuts % (Manual) 90.0 H Lymphocytes % (Manual) 3.0 L Seg Neutrophils # Seg Neutrophils # Man 14.8 H Lymphocytes # (Manual) 0.5 L Monocytes % (Manual) Eosinophils % (Manual) Monocytes # (Manual) 1.1 H Eosinophils # (Manual) D-Dimer Heparin Anti-Xa Level ABG pH POC ABG pCO2 POC ABG pO2 ABG pO2 ABG HCO3 ABG O2 Saturation ABG Base Excess ABG Hemoglobin ABG Oxyhemoglobin VBG pH ABG Sodium ABG Potassium ABG Glucose Oxyhemoglobin Sodium 129 L Potassium Chloride 95.6 L Carbon Dioxide 17 L BUN 106 H Creatinine 2.5 H Glucose 213 H POC Glucose 242 H Lactic Acid Calcium 7.6 L Ferritin AST Alkaline Phosphatase Magnesium Lactate Dehydrogenase Total Creatine Kinase CK-MB (CK-2) C-Reactive Protein Total Protein 5.0 L Albumin 2.1 L Troponin T HDL Cholesterol Arterial Blood Glucose Urine WBC (Auto) Urine Creatinine Urine Total Protein Coronavirus (PCR) Crossmatch 06/08/20 06/08/20 06/08/20 05:40 11:55 17:54 WBC RBC Hgb Hct MCHC RDW Lymph % (Auto) [place] % (Auto) Eos % (Auto) Lymph # [place] # Lymph # (Auto) [place] # (Auto) Seg Neutrophils % Seg Neuts % (Manual) Lymphocytes % (Manual) Seg Neutrophils # Seg Neutrophils # Man Lymphocytes # (Manual) Monocytes % (Manual) Eosinophils % (Manual) Monocytes # (Manual) Eosinophils # (Manual) D-Dimer Heparin Anti-Xa Level ABG pH POC ABG pCO2 POC ABG pO2 ABG pO2 ABG HCO3 ABG O2 Saturation ABG Base Excess ABG Hemoglobin ABG Oxyhemoglobin VBG pH ABG Sodium ABG Potassium ABG Glucose Oxyhemoglobin Sodium Potassium Chloride Carbon Dioxide BUN Creatinine Glucose POC Glucose 221 H 218 H 163 H Lactic Acid Calcium Ferritin AST Alkaline Phosphatase Magnesium Lactate Dehydrogenase Total Creatine Kinase CK-MB (CK-2) C-Reactive Protein Total Protein Albumin Troponin T HDL Cholesterol Arterial Blood Glucose Urine WBC (Auto) Urine Creatinine Urine Total Protein Coronavirus (PCR) Crossmatch 06/08/20 06/09/20 06/09/20 22:01 00:09 05:16 WBC 19.0 H RBC 3.35 L Hgb 9.2 L Hct 28.5 L MCHC RDW 16.3 H Lymph % (Auto) [place] % (Auto) Eos % (Auto) Lymph # [place] # Lymph # (Auto) [place] # (Auto) Seg Neutrophils % Seg Neuts % (Manual) 85.0 H Lymphocytes % (Manual) 7.0 L Seg Neutrophils # Seg Neutrophils # Man 16.2 H Lymphocytes # (Manual) Monocytes % (Manual) Eosinophils % (Manual) Monocytes # (Manual) 1.3 H Eosinophils # (Manual) D-Dimer Heparin Anti-Xa Level ABG pH POC ABG pCO2 POC ABG pO2 ABG pO2 ABG HCO3 ABG O2 Saturation ABG Base Excess ABG Hemoglobin ABG Oxyhemoglobin VBG pH ABG Sodium ABG Potassium ABG Glucose Oxyhemoglobin Sodium Potassium Chloride Carbon Dioxide BUN Creatinine Glucose POC Glucose 182 H 150 H Lactic Acid Calcium Ferritin AST Alkaline Phosphatase Magnesium Lactate Dehydrogenase Total Creatine Kinase CK-MB (CK-2) C-Reactive Protein Total Protein Albumin Troponin T HDL Cholesterol Arterial Blood Glucose Urine WBC (Auto) Urine Creatinine Urine Total Protein Coronavirus (PCR) Crossmatch 06/09/20 06/09/20 06/09/20 05:16 05:24 11:29 WBC RBC Hgb Hct MCHC RDW Lymph % (Auto) [place] % (Auto) Eos % (Auto) Lymph # [place] # Lymph # (Auto) [place] # (Auto) Seg Neutrophils % Seg Neuts % (Manual) Lymphocytes % (Manual) Seg Neutrophils # Seg Neutrophils # Man Lymphocytes # (Manual) Monocytes % (Manual) Eosinophils % (Manual) Monocytes # (Manual) Eosinophils # (Manual) D-Dimer Heparin Anti-Xa Level ABG pH POC ABG pCO2 POC ABG pO2 ABG pO2 ABG HCO3 ABG O2 Saturation ABG Base Excess ABG Hemoglobin ABG Oxyhemoglobin VBG pH ABG Sodium ABG Potassium ABG Glucose Oxyhemoglobin Sodium 133 L Potassium Chloride Carbon Dioxide 19 L BUN 109 H Creatinine 2.1 H Glucose 133 H POC Glucose 128 H 119 H Lactic Acid Calcium 7.7 L Ferritin AST Alkaline Phosphatase < 5 L Magnesium Lactate Dehydrogenase Total Creatine Kinase CK-MB (CK-2) C-Reactive Protein Total Protein 4.6 L Albumin < 0.2 L Troponin T HDL Cholesterol Arterial Blood Glucose Urine WBC (Auto) Urine Creatinine Urine Total Protein Coronavirus (PCR) Crossmatch 06/09/20 06/10/20 06/10/20 17:32 00:00 05:49 WBC RBC Hgb Hct MCHC RDW Lymph % (Auto) [place] % (Auto) Eos % (Auto) Lymph # [place] # Lymph # (Auto) [place] # (Auto) Seg Neutrophils % Seg Neuts % (Manual) Lymphocytes % (Manual) Seg Neutrophils # Seg Neutrophils # Man Lymphocytes # (Manual) Monocytes % (Manual) Eosinophils % (Manual) Monocytes # (Manual) Eosinophils # (Manual) D-Dimer Heparin Anti-Xa Level 0.19 L ABG pH POC ABG pCO2 POC ABG pO2 ABG pO2 ABG HCO3 ABG O2 Saturation ABG Base Excess ABG Hemoglobin ABG Oxyhemoglobin VBG pH ABG Sodium ABG Potassium ABG Glucose Oxyhemoglobin Sodium Potassium Chloride Carbon Dioxide BUN Creatinine Glucose POC Glucose 106 H 117 H Lactic Acid Calcium Ferritin AST Alkaline Phosphatase Magnesium Lactate Dehydrogenase Total Creatine Kinase CK-MB (CK-2) C-Reactive Protein Total Protein Albumin Troponin T HDL Cholesterol Arterial Blood Glucose Urine WBC (Auto) Urine Creatinine Urine Total Protein Coronavirus (PCR) Crossmatch 06/10/20 06/10/20 06/10/20 05:54 07:40 11:40 WBC RBC Hgb Hct MCHC RDW Lymph % (Auto) [place] % (Auto) Eos % (Auto) Lymph # [place] # Lymph # (Auto) [place] # (Auto) Seg Neutrophils % Seg Neuts % (Manual) Lymphocytes % (Manual) Seg Neutrophils # Seg Neutrophils # Man Lymphocytes # (Manual) Monocytes % (Manual) Eosinophils % (Manual) Monocytes # (Manual) Eosinophils # (Manual) D-Dimer Heparin Anti-Xa Level ABG pH POC ABG pCO2 POC ABG pO2 ABG pO2 ABG HCO3 ABG O2 Saturation ABG Base Excess ABG Hemoglobin ABG Oxyhemoglobin VBG pH ABG Sodium ABG Potassium ABG Glucose Oxyhemoglobin Sodium 146 H D Potassium Chloride Carbon Dioxide 20 L BUN 99 H Creatinine 1.9 H Glucose 121 H POC Glucose 127 H 138 H Lactic Acid Calcium 8.2 L Ferritin AST Alkaline Phosphatase Magnesium Lactate Dehydrogenase Total Creatine Kinase CK-MB (CK-2) C-Reactive Protein Total Protein Albumin Troponin T HDL Cholesterol Arterial Blood Glucose Urine WBC (Auto) Urine Creatinine Urine Total Protein Coronavirus (PCR) Crossmatch 06/10/20 06/10/20 06/10/20 14:44 17:31 23:22 WBC RBC Hgb Hct MCHC RDW Lymph % (Auto) [place] % (Auto) Eos % (Auto) Lymph # [place] # Lymph # (Auto) [place] # (Auto) Seg Neutrophils % Seg Neuts % (Manual) Lymphocytes % (Manual) Seg Neutrophils # Seg Neutrophils # Man Lymphocytes # (Manual) Monocytes % (Manual) Eosinophils % (Manual) Monocytes # (Manual) Eosinophils # (Manual) D-Dimer Heparin Anti-Xa Level 0.17 L ABG pH POC ABG pCO2 POC ABG pO2 ABG pO2 ABG HCO3 ABG O2 Saturation ABG Base Excess ABG Hemoglobin ABG Oxyhemoglobin VBG pH ABG Sodium ABG Potassium ABG Glucose Oxyhemoglobin Sodium Potassium Chloride Carbon Dioxide BUN Creatinine Glucose POC Glucose 128 H 114 H Lactic Acid Calcium Ferritin AST Alkaline Phosphatase Magnesium Lactate Dehydrogenase Total Creatine Kinase CK-MB (CK-2) C-Reactive Protein Total Protein Albumin Troponin T HDL Cholesterol Arterial Blood Glucose Urine WBC (Auto) Urine Creatinine Urine Total Protein Coronavirus (PCR) Crossmatch 06/11/20 06/11/20 06/11/20 00:22 03:45 03:45 WBC 14.6 H RBC 2.77 L Hgb 7.9 L Hct 24.3 L MCHC RDW 16.8 H Lymph % (Auto) 6.6 L [place] % (Auto) 8.5 H Eos % (Auto) Lymph # 1.0 L [place] # 1.2 H Lymph # (Auto) [place] # (Auto) Seg Neutrophils % 82.9 H Seg Neuts % (Manual) Lymphocytes % (Manual) Seg Neutrophils # 12.1 H Seg Neutrophils # Man Lymphocytes # (Manual) Monocytes % (Manual) Eosinophils % (Manual) Monocytes # (Manual) Eosinophils # (Manual) D-Dimer Heparin Anti-Xa Level 0.24 L ABG pH POC ABG pCO2 POC ABG pO2 ABG pO2 ABG HCO3 ABG O2 Saturation ABG Base Excess ABG Hemoglobin ABG Oxyhemoglobin VBG pH ABG Sodium ABG Potassium ABG Glucose Oxyhemoglobin Sodium Potassium Chloride Carbon Dioxide 20 L BUN 88 H Creatinine 1.5 H Glucose 111 H POC Glucose Lactic Acid Calcium 8.2 L Ferritin AST Alkaline Phosphatase Magnesium Lactate Dehydrogenase Total Creatine Kinase CK-MB (CK-2) C-Reactive Protein Total Protein Albumin Troponin T HDL Cholesterol Arterial Blood Glucose Urine WBC (Auto) Urine Creatinine Urine Total Protein Coronavirus (PCR) Crossmatch 06/11/20 06/11/20 06/11/20 06:03 10:22 11:11 WBC RBC Hgb Hct MCHC RDW Lymph % (Auto) [place] % (Auto) Eos % (Auto) Lymph # [place] # Lymph # (Auto) [place] # (Auto) Seg Neutrophils % Seg Neuts % (Manual) Lymphocytes % (Manual) Seg Neutrophils # Seg Neutrophils # Man Lymphocytes # (Manual) Monocytes % (Manual) Eosinophils % (Manual) Monocytes # (Manual) Eosinophils # (Manual) D-Dimer Heparin Anti-Xa Level 0.26 L ABG pH POC ABG pCO2 POC ABG pO2 ABG pO2 ABG HCO3 ABG O2 Saturation ABG Base Excess ABG Hemoglobin 9.6 L ABG Oxyhemoglobin VBG pH ABG Sodium ABG Potassium ABG Glucose Oxyhemoglobin Sodium Potassium Chloride Carbon Dioxide BUN Creatinine Glucose POC Glucose 114 H Lactic Acid Calcium Ferritin AST Alkaline Phosphatase Magnesium Lactate Dehydrogenase Total Creatine Kinase CK-MB (CK-2) C-Reactive Protein Total Protein Albumin Troponin T HDL Cholesterol Arterial Blood Glucose Urine WBC (Auto) Urine Creatinine Urine Total Protein Coronavirus (PCR) Crossmatch 06/11/20 06/11/20 06/12/20 12:24 17:24 00:21 WBC RBC Hgb Hct MCHC RDW Lymph % (Auto) [place] % (Auto) Eos % (Auto) Lymph # [place] # Lymph # (Auto) [place] # (Auto) Seg Neutrophils % Seg Neuts % (Manual) Lymphocytes % (Manual) Seg Neutrophils # Seg Neutrophils # Man Lymphocytes # (Manual) Monocytes % (Manual) Eosinophils % (Manual) Monocytes # (Manual) Eosinophils # (Manual) D-Dimer Heparin Anti-Xa Level ABG pH POC ABG pCO2 POC ABG pO2 ABG pO2 ABG HCO3 ABG O2 Saturation ABG Base Excess ABG Hemoglobin ABG Oxyhemoglobin VBG pH ABG Sodium ABG Potassium ABG Glucose Oxyhemoglobin Sodium Potassium Chloride Carbon Dioxide BUN Creatinine Glucose POC Glucose 119 H 126 H 117 H Lactic Acid Calcium Ferritin AST Alkaline Phosphatase Magnesium Lactate Dehydrogenase Total Creatine Kinase CK-MB (CK-2) C-Reactive Protein Total Protein Albumin Troponin T HDL Cholesterol Arterial Blood Glucose Urine WBC (Auto) Urine Creatinine Urine Total Protein Coronavirus (PCR) Crossmatch 06/12/20 06/12/20 06/12/20 02:46 02:46 05:46 WBC 13.2 H RBC 2.83 L Hgb 8.3 L Hct 24.3 L MCHC RDW 16.6 H Lymph % (Auto) 6.2 L [place] % (Auto) 9.5 H Eos % (Auto) Lymph # 0.8 L [place] # 1.3 H Lymph # (Auto) [place] # (Auto) Seg Neutrophils % 81.9 H Seg Neuts % (Manual) Lymphocytes % (Manual) Seg Neutrophils # 10.9 H Seg Neutrophils # Man Lymphocytes # (Manual) Monocytes % (Manual) Eosinophils % (Manual) Monocytes # (Manual) Eosinophils # (Manual) D-Dimer Heparin Anti-Xa Level ABG pH POC ABG pCO2 POC ABG pO2 ABG pO2 ABG HCO3 ABG O2 Saturation ABG Base Excess ABG Hemoglobin ABG Oxyhemoglobin VBG pH ABG Sodium ABG Potassium ABG Glucose Oxyhemoglobin Sodium Potassium 3.5 L Chloride Carbon Dioxide BUN 77 H Creatinine 1.3 H Glucose POC Glucose 132 H Lactic Acid Calcium 8.3 L Ferritin AST Alkaline Phosphatase Magnesium Lactate Dehydrogenase Total Creatine Kinase CK-MB (CK-2) C-Reactive Protein Total Protein Albumin Troponin T HDL Cholesterol Arterial Blood Glucose Urine WBC (Auto) Urine Creatinine Urine Total Protein Coronavirus (PCR) Crossmatch 06/12/20 06/12/20 06/12/20 09:20 12:16 17:48 WBC RBC Hgb Hct MCHC RDW Lymph % (Auto) [place] % (Auto) Eos % (Auto) Lymph # [place] # Lymph # (Auto) [place] # (Auto) Seg Neutrophils % Seg Neuts % (Manual) Lymphocytes % (Manual) Seg Neutrophils # Seg Neutrophils # Man Lymphocytes # (Manual) Monocytes % (Manual) Eosinophils % (Manual) Monocytes # (Manual) Eosinophils # (Manual) D-Dimer Heparin Anti-Xa Level ABG pH POC ABG pCO2 POC ABG pO2 ABG pO2 91.1 H ABG HCO3 ABG O2 Saturation ABG Base Excess ABG Hemoglobin ABG Oxyhemoglobin VBG pH ABG Sodium ABG Potassium ABG Glucose Oxyhemoglobin 94.8 L Sodium Potassium Chloride Carbon Dioxide BUN Creatinine Glucose POC Glucose 167 H 182 H Lactic Acid Calcium Ferritin AST Alkaline Phosphatase Magnesium Lactate Dehydrogenase Total Creatine Kinase CK-MB (CK-2) C-Reactive Protein Total Protein Albumin Troponin T HDL Cholesterol Arterial Blood Glucose Urine WBC (Auto) Urine Creatinine Urine Total Protein Coronavirus (PCR) Crossmatch 06/13/20 06/13/20 06/13/20 00:08 05:37 09:09 WBC RBC Hgb Hct MCHC RDW Lymph % (Auto) [place] % (Auto) Eos % (Auto) Lymph # [place] # Lymph # (Auto) [place] # (Auto) Seg Neutrophils % Seg Neuts % (Manual) Lymphocytes % (Manual) Seg Neutrophils # Seg Neutrophils # Man Lymphocytes # (Manual) Monocytes % (Manual) Eosinophils % (Manual) Monocytes # (Manual) Eosinophils # (Manual) D-Dimer Heparin Anti-Xa Level 0.86 H ABG pH POC ABG pCO2 POC ABG pO2 ABG pO2 ABG HCO3 ABG O2 Saturation ABG Base Excess ABG Hemoglobin ABG Oxyhemoglobin VBG pH ABG Sodium ABG Potassium ABG Glucose Oxyhemoglobin Sodium Potassium Chloride Carbon Dioxide BUN Creatinine Glucose POC Glucose 142 H 119 H Lactic Acid Calcium Ferritin AST Alkaline Phosphatase Magnesium Lactate Dehydrogenase Total Creatine Kinase CK-MB (CK-2) C-Reactive Protein Total Protein Albumin Troponin T HDL Cholesterol Arterial Blood Glucose Urine WBC (Auto) Urine Creatinine Urine Total Protein Coronavirus (PCR) Crossmatch 06/13/20 06/13/20 06/13/20 12:28 17:55 21:17 WBC RBC Hgb Hct MCHC RDW Lymph % (Auto) [place] % (Auto) Eos % (Auto) Lymph # [place] # Lymph # (Auto) [place] # (Auto) Seg Neutrophils % Seg Neuts % (Manual) Lymphocytes % (Manual) Seg Neutrophils # Seg Neutrophils # Man Lymphocytes # (Manual) Monocytes % (Manual) Eosinophils % (Manual) Monocytes # (Manual) Eosinophils # (Manual) D-Dimer Heparin Anti-Xa Level ABG pH POC ABG pCO2 POC ABG pO2 ABG pO2 ABG HCO3 ABG O2 Saturation ABG Base Excess ABG Hemoglobin ABG Oxyhemoglobin VBG pH ABG Sodium ABG Potassium ABG Glucose Oxyhemoglobin Sodium Potassium Chloride Carbon Dioxide BUN 61 H Creatinine Glucose 131 H POC Glucose 165 H 174 H Lactic Acid Calcium Ferritin AST Alkaline Phosphatase Magnesium Lactate Dehydrogenase Total Creatine Kinase CK-MB (CK-2) C-Reactive Protein Total Protein Albumin Troponin T HDL Cholesterol Arterial Blood Glucose Urine WBC (Auto) Urine Creatinine Urine Total Protein Coronavirus (PCR) Crossmatch 06/13/20 06/13/20 06/14/20 21:17 23:50 05:34 WBC RBC Hgb Hct MCHC RDW Lymph % (Auto) [place] % (Auto) Eos % (Auto) Lymph # [place] # Lymph # (Auto) [place] # (Auto) Seg Neutrophils % Seg Neuts % (Manual) Lymphocytes % (Manual) Seg Neutrophils # Seg Neutrophils # Man Lymphocytes # (Manual) Monocytes % (Manual) Eosinophils % (Manual) Monocytes # (Manual) Eosinophils # (Manual) D-Dimer Heparin Anti-Xa Level 0.72 H ABG pH POC ABG pCO2 POC ABG pO2 ABG pO2 ABG HCO3 ABG O2 Saturation ABG Base Excess ABG Hemoglobin ABG Oxyhemoglobin VBG pH ABG Sodium ABG Potassium ABG Glucose Oxyhemoglobin Sodium 146 H Potassium Chloride 107.6 H Carbon Dioxide BUN 61 H Creatinine 1.3 H Glucose 135 H POC Glucose 146 H Lactic Acid Calcium Ferritin AST Alkaline Phosphatase Magnesium Lactate Dehydrogenase Total Creatine Kinase CK-MB (CK-2) C-Reactive Protein Total Protein Albumin Troponin T HDL Cholesterol Arterial Blood Glucose Urine WBC (Auto) Urine Creatinine Urine Total Protein Coronavirus (PCR) Crossmatch 06/14/20 06/14/20 06/14/20 06:11 09:28 11:30 WBC RBC Hgb Hct MCHC RDW Lymph % (Auto) [place] % (Auto) Eos % (Auto) Lymph # [place] # Lymph # (Auto) [place] # (Auto) Seg Neutrophils % Seg Neuts % (Manual) Lymphocytes % (Manual) Seg Neutrophils # Seg Neutrophils # Man Lymphocytes # (Manual) Monocytes % (Manual) Eosinophils % (Manual) Monocytes # (Manual) Eosinophils # (Manual) D-Dimer Heparin Anti-Xa Level 0.90 H ABG pH POC ABG pCO2 POC ABG pO2 ABG pO2 ABG HCO3 ABG O2 Saturation ABG Base Excess ABG Hemoglobin ABG Oxyhemoglobin VBG pH ABG Sodium ABG Potassium ABG Glucose Oxyhemoglobin Sodium Potassium Chloride Carbon Dioxide BUN Creatinine Glucose POC Glucose 141 H 186 H Lactic Acid Calcium Ferritin AST Alkaline Phosphatase Magnesium Lactate Dehydrogenase Total Creatine Kinase CK-MB (CK-2) C-Reactive Protein Total Protein Albumin Troponin T HDL Cholesterol Arterial Blood Glucose Urine WBC (Auto) Urine Creatinine Urine Total Protein Coronavirus (PCR) Crossmatch 06/14/20 06/14/20 06/14/20 16:07 18:16 23:51 WBC RBC Hgb Hct MCHC RDW Lymph % (Auto) [place] % (Auto) Eos % (Auto) Lymph # [place] # Lymph # (Auto) [place] # (Auto) Seg Neutrophils % Seg Neuts % (Manual) Lymphocytes % (Manual) Seg Neutrophils # Seg Neutrophils # Man Lymphocytes # (Manual) Monocytes % (Manual) Eosinophils % (Manual) Monocytes # (Manual) Eosinophils # (Manual) D-Dimer Heparin Anti-Xa Level 0.82 H ABG pH POC ABG pCO2 POC ABG pO2 ABG pO2 ABG HCO3 ABG O2 Saturation ABG Base Excess ABG Hemoglobin ABG Oxyhemoglobin VBG pH ABG Sodium ABG Potassium ABG Glucose Oxyhemoglobin Sodium Potassium Chloride Carbon Dioxide BUN Creatinine Glucose POC Glucose 106 H 154 H Lactic Acid Calcium Ferritin AST Alkaline Phosphatase Magnesium Lactate Dehydrogenase Total Creatine Kinase CK-MB (CK-2) C-Reactive Protein Total Protein Albumin Troponin T HDL Cholesterol Arterial Blood Glucose Urine WBC (Auto) Urine Creatinine Urine Total Protein Coronavirus (PCR) Crossmatch 06/15/20 06/15/20 06/15/20 04:24 04:24 05:59 WBC RBC 2.75 L Hgb 7.9 L Hct 24.0 L MCHC RDW 16.4 H Lymph % (Auto) 12.9 L [place] % (Auto) 8.7 H Eos % (Auto) 4.6 H Lymph # 1.1 L [place] # Lymph # (Auto) [place] # (Auto) Seg Neutrophils % 73.2 H Seg Neuts % (Manual) Lymphocytes % (Manual) Seg Neutrophils # Seg Neutrophils # Man Lymphocytes # (Manual) Monocytes % (Manual) Eosinophils % (Manual) Monocytes # (Manual) Eosinophils # (Manual) D-Dimer Heparin Anti-Xa Level ABG pH POC ABG pCO2 POC ABG pO2 ABG pO2 ABG HCO3 ABG O2 Saturation ABG Base Excess ABG Hemoglobin ABG Oxyhemoglobin VBG pH ABG Sodium ABG Potassium ABG Glucose Oxyhemoglobin Sodium Potassium 3.4 L Chloride Carbon Dioxide BUN 55 H Creatinine 1.3 H Glucose 142 H POC Glucose 131 H Lactic Acid Calcium Ferritin AST Alkaline Phosphatase Magnesium Lactate Dehydrogenase Total Creatine Kinase CK-MB (CK-2) C-Reactive Protein Total Protein Albumin Troponin T HDL Cholesterol Arterial Blood Glucose Urine WBC (Auto) Urine Creatinine Urine Total Protein Coronavirus (PCR) Crossmatch 06/15/20 06/15/20 06/16/20 12:33 17:07 00:22 WBC RBC Hgb Hct MCHC RDW Lymph % (Auto) [place] % (Auto) Eos % (Auto) Lymph # [place] # Lymph # (Auto) [place] # (Auto) Seg Neutrophils % Seg Neuts % (Manual) Lymphocytes % (Manual) Seg Neutrophils # Seg Neutrophils # Man Lymphocytes # (Manual) Monocytes % (Manual) Eosinophils % (Manual) Monocytes # (Manual) Eosinophils # (Manual) D-Dimer Heparin Anti-Xa Level 0.21 L ABG pH POC ABG pCO2 POC ABG pO2 ABG pO2 ABG HCO3 ABG O2 Saturation ABG Base Excess ABG Hemoglobin ABG Oxyhemoglobin VBG pH ABG Sodium ABG Potassium ABG Glucose Oxyhemoglobin Sodium Potassium Chloride Carbon Dioxide BUN Creatinine Glucose POC Glucose 180 H 185 H Lactic Acid Calcium Ferritin AST Alkaline Phosphatase Magnesium Lactate Dehydrogenase Total Creatine Kinase CK-MB (CK-2) C-Reactive Protein Total Protein Albumin Troponin T HDL Cholesterol Arterial Blood Glucose Urine WBC (Auto) Urine Creatinine Urine Total Protein Coronavirus (PCR) Crossmatch 06/16/20 06/16/20 06/16/20 01:45 08:06 09:15 WBC RBC Hgb Hct MCHC RDW Lymph % (Auto) [place] % (Auto) Eos % (Auto) Lymph # [place] # Lymph # (Auto) [place] # (Auto) Seg Neutrophils % Seg Neuts % (Manual) Lymphocytes % (Manual) Seg Neutrophils # Seg Neutrophils # Man Lymphocytes # (Manual) Monocytes % (Manual) Eosinophils % (Manual) Monocytes # (Manual) Eosinophils # (Manual) D-Dimer Heparin Anti-Xa Level ABG pH POC ABG pCO2 POC ABG pO2 ABG pO2 ABG HCO3 ABG O2 Saturation ABG Base Excess ABG Hemoglobin ABG Oxyhemoglobin VBG pH ABG Sodium ABG Potassium ABG Glucose Oxyhemoglobin Sodium Potassium Chloride Carbon Dioxide BUN 49 H Creatinine Glucose 154 H POC Glucose 140 H 171 H Lactic Acid Calcium Ferritin AST Alkaline Phosphatase Magnesium Lactate Dehydrogenase Total Creatine Kinase CK-MB (CK-2) C-Reactive Protein Total Protein Albumin Troponin T HDL Cholesterol Arterial Blood Glucose Urine WBC (Auto) Urine Creatinine Urine Total Protein Coronavirus (PCR) Crossmatch 06/16/20 06/16/20 06/16/20 10:46 12:33 17:54 WBC RBC Hgb Hct MCHC RDW Lymph % (Auto) [place] % (Auto) Eos % (Auto) Lymph # [place] # Lymph # (Auto) [place] # (Auto) Seg Neutrophils % Seg Neuts % (Manual) Lymphocytes % (Manual) Seg Neutrophils # Seg Neutrophils # Man Lymphocytes # (Manual) Monocytes % (Manual) Eosinophils % (Manual) Monocytes # (Manual) Eosinophils # (Manual) D-Dimer Heparin Anti-Xa Level 0.12 L ABG pH POC ABG pCO2 POC ABG pO2 ABG pO2 ABG HCO3 ABG O2 Saturation ABG Base Excess ABG Hemoglobin ABG Oxyhemoglobin VBG pH ABG Sodium ABG Potassium ABG Glucose Oxyhemoglobin Sodium Potassium Chloride Carbon Dioxide BUN Creatinine Glucose POC Glucose 166 H 151 H Lactic Acid Calcium Ferritin AST Alkaline Phosphatase Magnesium Lactate Dehydrogenase Total Creatine Kinase CK-MB (CK-2) C-Reactive Protein Total Protein Albumin Troponin T HDL Cholesterol Arterial Blood Glucose Urine WBC (Auto) Urine Creatinine Urine Total Protein Coronavirus (PCR) Crossmatch 06/16/20 06/17/20 06/17/20 18:47 00:00 02:19 WBC RBC Hgb Hct MCHC RDW Lymph % (Auto) [place] % (Auto) Eos % (Auto) Lymph # [place] # Lymph # (Auto) [place] # (Auto) Seg Neutrophils % Seg Neuts % (Manual) Lymphocytes % (Manual) Seg Neutrophils # Seg Neutrophils # Man Lymphocytes # (Manual) Monocytes % (Manual) Eosinophils % (Manual) Monocytes # (Manual) Eosinophils # (Manual) D-Dimer Heparin Anti-Xa Level 0.73 H 0.77 H ABG pH POC ABG pCO2 POC ABG pO2 ABG pO2 ABG HCO3 ABG O2 Saturation ABG Base Excess ABG Hemoglobin ABG Oxyhemoglobin VBG pH ABG Sodium ABG Potassium ABG Glucose Oxyhemoglobin Sodium Potassium Chloride Carbon Dioxide BUN Creatinine Glucose POC Glucose 139 H Lactic Acid Calcium Ferritin AST Alkaline Phosphatase Magnesium Lactate Dehydrogenase Total Creatine Kinase CK-MB (CK-2) C-Reactive Protein Total Protein Albumin Troponin T HDL Cholesterol Arterial Blood Glucose Urine WBC (Auto) Urine Creatinine Urine Total Protein Coronavirus (PCR) Crossmatch 06/17/20 06/17/20 06/17/20 06:07 11:42 16:43 WBC RBC Hgb Hct MCHC RDW Lymph % (Auto) [place] % (Auto) Eos % (Auto) Lymph # [place] # Lymph # (Auto) [place] # (Auto) Seg Neutrophils % Seg Neuts % (Manual) Lymphocytes % (Manual) Seg Neutrophils # Seg Neutrophils # Man Lymphocytes # (Manual) Monocytes % (Manual) Eosinophils % (Manual) Monocytes # (Manual) Eosinophils # (Manual) D-Dimer Heparin Anti-Xa Level 0.73 H ABG pH POC ABG pCO2 POC ABG pO2 ABG pO2 ABG HCO3 ABG O2 Saturation ABG Base Excess ABG Hemoglobin ABG Oxyhemoglobin VBG pH ABG Sodium ABG Potassium ABG Glucose Oxyhemoglobin Sodium Potassium Chloride Carbon Dioxide BUN Creatinine Glucose POC Glucose 169 H 169 H Lactic Acid Calcium Ferritin AST Alkaline Phosphatase Magnesium Lactate Dehydrogenase Total Creatine Kinase CK-MB (CK-2) C-Reactive Protein Total Protein Albumin Troponin T HDL Cholesterol Arterial Blood Glucose Urine WBC (Auto) Urine Creatinine Urine Total Protein Coronavirus (PCR) Crossmatch 06/17/20 06/17/20 06/17/20 18:18 23:08 23:16 WBC RBC Hgb Hct MCHC RDW Lymph % (Auto) [place] % (Auto) Eos % (Auto) Lymph # [place] # Lymph # (Auto) [place] # (Auto) Seg Neutrophils % Seg Neuts % (Manual) Lymphocytes % (Manual) Seg Neutrophils # Seg Neutrophils # Man Lymphocytes # (Manual) Monocytes % (Manual) Eosinophils % (Manual) Monocytes # (Manual) Eosinophils # (Manual) D-Dimer Heparin Anti-Xa Level 0.71 H ABG pH POC ABG pCO2 POC ABG pO2 ABG pO2 ABG HCO3 ABG O2 Saturation ABG Base Excess ABG Hemoglobin ABG Oxyhemoglobin VBG pH ABG Sodium ABG Potassium ABG Glucose Oxyhemoglobin Sodium Potassium Chloride Carbon Dioxide BUN Creatinine Glucose POC Glucose 159 H 134 H Lactic Acid Calcium Ferritin AST Alkaline Phosphatase Magnesium Lactate Dehydrogenase Total Creatine Kinase CK-MB (CK-2) C-Reactive Protein Total Protein Albumin Troponin T HDL Cholesterol Arterial Blood Glucose Urine WBC (Auto) Urine Creatinine Urine Total Protein Coronavirus (PCR) Crossmatch 06/18/20 06/18/20 06/18/20 04:42 05:52 11:50 WBC RBC Hgb Hct MCHC RDW Lymph % (Auto) [place] % (Auto) Eos % (Auto) Lymph # [place] # Lymph # (Auto) [place] # (Auto) Seg Neutrophils % Seg Neuts % (Manual) Lymphocytes % (Manual) Seg Neutrophils # Seg Neutrophils # Man Lymphocytes # (Manual) Monocytes % (Manual) Eosinophils % (Manual) Monocytes # (Manual) Eosinophils # (Manual) D-Dimer Heparin Anti-Xa Level ABG pH POC ABG pCO2 POC ABG pO2 ABG pO2 ABG HCO3 ABG O2 Saturation ABG Base Excess ABG Hemoglobin ABG Oxyhemoglobin VBG pH ABG Sodium ABG Potassium ABG Glucose Oxyhemoglobin Sodium Potassium Chloride Carbon Dioxide BUN 44 H Creatinine Glucose 115 H POC Glucose 171 H 167 H Lactic Acid Calcium Ferritin AST Alkaline Phosphatase Magnesium Lactate Dehydrogenase Total Creatine Kinase CK-MB (CK-2) C-Reactive Protein Total Protein Albumin Troponin T HDL Cholesterol Arterial Blood Glucose Urine WBC (Auto) Urine Creatinine Urine Total Protein Coronavirus (PCR) Crossmatch 06/18/20 06/19/20 06/19/20 23:46 05:48 07:52 WBC RBC Hgb Hct MCHC RDW Lymph % (Auto) [place] % (Auto) Eos % (Auto) Lymph # [place] # Lymph # (Auto) [place] # (Auto) Seg Neutrophils % Seg Neuts % (Manual) Lymphocytes % (Manual) Seg Neutrophils # Seg Neutrophils # Man Lymphocytes # (Manual) Monocytes % (Manual) Eosinophils % (Manual) Monocytes # (Manual) Eosinophils # (Manual) D-Dimer Heparin Anti-Xa Level ABG pH POC ABG pCO2 POC ABG pO2 ABG pO2 ABG HCO3 ABG O2 Saturation ABG Base Excess ABG Hemoglobin ABG Oxyhemoglobin VBG pH ABG Sodium ABG Potassium ABG Glucose Oxyhemoglobin Sodium Potassium Chloride Carbon Dioxide BUN Creatinine Glucose POC Glucose 130 H 207 H 175 H Lactic Acid Calcium Ferritin AST Alkaline Phosphatase Magnesium Lactate Dehydrogenase Total Creatine Kinase CK-MB (CK-2) C-Reactive Protein Total Protein Albumin Troponin T HDL Cholesterol Arterial Blood Glucose Urine WBC (Auto) Urine Creatinine Urine Total Protein Coronavirus (PCR) Crossmatch 06/19/20 06/19/20 06/20/20 11:42 22:54 05:17 WBC RBC Hgb Hct MCHC RDW Lymph % (Auto) [place] % (Auto) Eos % (Auto) Lymph # [place] # Lymph # (Auto) [place] # (Auto) Seg Neutrophils % Seg Neuts % (Manual) Lymphocytes % (Manual) Seg Neutrophils # Seg Neutrophils # Man Lymphocytes # (Manual) Monocytes % (Manual) Eosinophils % (Manual) Monocytes # (Manual) Eosinophils # (Manual) D-Dimer Heparin Anti-Xa Level ABG pH POC ABG pCO2 POC ABG pO2 ABG pO2 ABG HCO3 ABG O2 Saturation ABG Base Excess ABG Hemoglobin ABG Oxyhemoglobin VBG pH ABG Sodium ABG Potassium ABG Glucose Oxyhemoglobin Sodium Potassium Chloride Carbon Dioxide BUN Creatinine Glucose POC Glucose 166 H 135 H 218 H Lactic Acid Calcium Ferritin AST Alkaline Phosphatase Magnesium Lactate Dehydrogenase Total Creatine Kinase CK-MB (CK-2) C-Reactive Protein Total Protein Albumin Troponin T HDL Cholesterol Arterial Blood Glucose Urine WBC (Auto) Urine Creatinine Urine Total Protein Coronavirus (PCR) Crossmatch 06/20/20 06/20/20 06/20/20 12:04 16:25 16:35 WBC RBC Hgb Hct MCHC RDW Lymph % (Auto) [place] % (Auto) Eos % (Auto) Lymph # [place] # Lymph # (Auto) [place] # (Auto) Seg Neutrophils % Seg Neuts % (Manual) Lymphocytes % (Manual) Seg Neutrophils # Seg Neutrophils # Man Lymphocytes # (Manual) Monocytes % (Manual) Eosinophils % (Manual) Monocytes # (Manual) Eosinophils # (Manual) D-Dimer Heparin Anti-Xa Level ABG pH POC ABG pCO2 POC ABG pO2 ABG pO2 59.6 L ABG HCO3 28.7 H ABG O2 Saturation 93.5 L ABG Base Excess 3.4 H ABG Hemoglobin 7.2 L ABG Oxyhemoglobin VBG pH ABG Sodium ABG Potassium ABG Glucose Oxyhemoglobin 91.3 L Sodium Potassium Chloride Carbon Dioxide BUN Creatinine Glucose POC Glucose 194 H 137 H Lactic Acid Calcium Ferritin AST Alkaline Phosphatase Magnesium Lactate Dehydrogenase Total Creatine Kinase CK-MB (CK-2) C-Reactive Protein Total Protein Albumin Troponin T HDL Cholesterol Arterial Blood Glucose Urine WBC (Auto) Urine Creatinine Urine Total Protein Coronavirus (PCR) Crossmatch 06/20/20 06/21/20 06/21/20 23:59 06:25 12:01 WBC RBC Hgb Hct MCHC RDW Lymph % (Auto) [place] % (Auto) Eos % (Auto) Lymph # [place] # Lymph # (Auto) [place] # (Auto) Seg Neutrophils % Seg Neuts % (Manual) Lymphocytes % (Manual) Seg Neutrophils # Seg Neutrophils # Man Lymphocytes # (Manual) Monocytes % (Manual) Eosinophils % (Manual) Monocytes # (Manual) Eosinophils # (Manual) D-Dimer Heparin Anti-Xa Level ABG pH POC ABG pCO2 POC ABG pO2 ABG pO2 ABG HCO3 ABG O2 Saturation ABG Base Excess ABG Hemoglobin ABG Oxyhemoglobin VBG pH ABG Sodium ABG Potassium ABG Glucose Oxyhemoglobin Sodium Potassium Chloride Carbon Dioxide BUN Creatinine Glucose POC Glucose 156 H 177 H 195 H Lactic Acid Calcium Ferritin AST Alkaline Phosphatase Magnesium Lactate Dehydrogenase Total Creatine Kinase CK-MB (CK-2) C-Reactive Protein Total Protein Albumin Troponin T HDL Cholesterol Arterial Blood Glucose Urine WBC (Auto) Urine Creatinine Urine Total Protein Coronavirus (PCR) Crossmatch 06/21/20 06/21/20 06/22/20 17:04 21:51 05:06 WBC RBC Hgb Hct MCHC RDW Lymph % (Auto) [place] % (Auto) Eos % (Auto) Lymph # [place] # Lymph # (Auto) [place] # (Auto) Seg Neutrophils % Seg Neuts % (Manual) Lymphocytes % (Manual) Seg Neutrophils # Seg Neutrophils # Man Lymphocytes # (Manual) Monocytes % (Manual) Eosinophils % (Manual) Monocytes # (Manual) Eosinophils # (Manual) D-Dimer Heparin Anti-Xa Level ABG pH POC ABG pCO2 POC ABG pO2 ABG pO2 ABG HCO3 ABG O2 Saturation ABG Base Excess ABG Hemoglobin ABG Oxyhemoglobin VBG pH ABG Sodium ABG Potassium ABG Glucose Oxyhemoglobin Sodium Potassium Chloride Carbon Dioxide BUN Creatinine Glucose POC Glucose 156 H 154 H 167 H Lactic Acid Calcium Ferritin AST Alkaline Phosphatase Magnesium Lactate Dehydrogenase Total Creatine Kinase CK-MB (CK-2) C-Reactive Protein Total Protein Albumin Troponin T HDL Cholesterol Arterial Blood Glucose Urine WBC (Auto) Urine Creatinine Urine Total Protein Coronavirus (PCR) Crossmatch 06/22/20 06/22/20 06/22/20 11:20 15:27 16:58 WBC RBC Hgb Hct MCHC RDW Lymph % (Auto) [place] % (Auto) Eos % (Auto) Lymph # [place] # Lymph # (Auto) [place] # (Auto) Seg Neutrophils % Seg Neuts % (Manual) Lymphocytes % (Manual) Seg Neutrophils # Seg Neutrophils # Man Lymphocytes # (Manual) Monocytes % (Manual) Eosinophils % (Manual) Monocytes # (Manual) Eosinophils # (Manual) D-Dimer Heparin Anti-Xa Level ABG pH 7.206 L POC ABG pCO2 79.9 H POC ABG pO2 ABG pO2 ABG HCO3 ABG O2 Saturation ABG Base Excess ABG Hemoglobin 8.3 L ABG Oxyhemoglobin VBG pH ABG Sodium ABG Potassium ABG Glucose Oxyhemoglobin Sodium Potassium Chloride Carbon Dioxide BUN Creatinine Glucose POC Glucose 181 H 230 H Lactic Acid Calcium Ferritin AST Alkaline Phosphatase Magnesium Lactate Dehydrogenase Total Creatine Kinase CK-MB (CK-2) C-Reactive Protein Total Protein Albumin Troponin T HDL Cholesterol Arterial Blood Glucose Urine WBC (Auto) Urine Creatinine Urine Total Protein Coronavirus (PCR) Crossmatch 06/22/20 06/23/20 06/23/20 22:26 05:49 05:49 WBC RBC 2.58 L Hgb 7.4 L Hct 23.2 L MCHC RDW 17.0 H Lymph % (Auto) [place] % (Auto) 11.2 H Eos % (Auto) Lymph # 1.0 L [place] # Lymph # (Auto) [place] # (Auto) Seg Neutrophils % Seg Neuts % (Manual) Lymphocytes % (Manual) Seg Neutrophils # Seg Neutrophils # Man Lymphocytes # (Manual) Monocytes % (Manual) Eosinophils % (Manual) Monocytes # (Manual) Eosinophils # (Manual) D-Dimer Heparin Anti-Xa Level ABG pH POC ABG pCO2 POC ABG pO2 ABG pO2 ABG HCO3 ABG O2 Saturation ABG Base Excess ABG Hemoglobin ABG Oxyhemoglobin VBG pH ABG Sodium ABG Potassium ABG Glucose Oxyhemoglobin Sodium Potassium Chloride Carbon Dioxide BUN 68 H Creatinine 2.4 H Glucose 198 H POC Glucose 195 H Lactic Acid Calcium Ferritin AST Alkaline Phosphatase Magnesium Lactate Dehydrogenase Total Creatine Kinase CK-MB (CK-2) C-Reactive Protein Total Protein Albumin Troponin T HDL Cholesterol Arterial Blood Glucose Urine WBC (Auto) Urine Creatinine Urine Total Protein Coronavirus (PCR) Crossmatch 06/23/20 06/23/20 06/23/20 05:50 12:29 12:34 WBC RBC Hgb Hct MCHC RDW Lymph % (Auto) [place] % (Auto) Eos % (Auto) Lymph # [place] # Lymph # (Auto) [place] # (Auto) Seg Neutrophils % Seg Neuts % (Manual) Lymphocytes % (Manual) Seg Neutrophils # Seg Neutrophils # Man Lymphocytes # (Manual) Monocytes % (Manual) Eosinophils % (Manual) Monocytes # (Manual) Eosinophils # (Manual) D-Dimer Heparin Anti-Xa Level ABG pH POC ABG pCO2 54.7 H POC ABG pO2 68.8 L ABG pO2 ABG HCO3 ABG O2 Saturation ABG Base Excess ABG Hemoglobin 9.8 L ABG Oxyhemoglobin 92.6 L VBG pH ABG Sodium ABG Potassium ABG Glucose Oxyhemoglobin Sodium Potassium Chloride Carbon Dioxide BUN Creatinine Glucose POC Glucose 202 H 218 H Lactic Acid Calcium Ferritin AST Alkaline Phosphatase Magnesium Lactate Dehydrogenase Total Creatine Kinase CK-MB (CK-2) C-Reactive Protein Total Protein Albumin Troponin T HDL Cholesterol Arterial Blood Glucose Urine WBC (Auto) Urine Creatinine Urine Total Protein Coronavirus (PCR) Crossmatch 06/23/20 06/23/20 06/24/20 16:02 22:22 01:06 WBC RBC Hgb Hct MCHC RDW Lymph % (Auto) [place] % (Auto) Eos % (Auto) Lymph # [place] # Lymph # (Auto) [place] # (Auto) Seg Neutrophils % Seg Neuts % (Manual) Lymphocytes % (Manual) Seg Neutrophils # Seg Neutrophils # Man Lymphocytes # (Manual) Monocytes % (Manual) Eosinophils % (Manual) Monocytes # (Manual) Eosinophils # (Manual) D-Dimer Heparin Anti-Xa Level ABG pH POC ABG pCO2 POC ABG pO2 ABG pO2 ABG HCO3 ABG O2 Saturation ABG Base Excess ABG Hemoglobin ABG Oxyhemoglobin VBG pH ABG Sodium ABG Potassium ABG Glucose Oxyhemoglobin Sodium Potassium Chloride Carbon Dioxide BUN Creatinine Glucose POC Glucose 190 H 166 H 171 H Lactic Acid Calcium Ferritin AST Alkaline Phosphatase Magnesium Lactate Dehydrogenase Total Creatine Kinase CK-MB (CK-2) C-Reactive Protein Total Protein Albumin Troponin T HDL Cholesterol Arterial Blood Glucose Urine WBC (Auto) Urine Creatinine Urine Total Protein Coronavirus (PCR) Crossmatch 06/24/20 06/24/20 06/24/20 04:48 05:35 11:48 WBC RBC Hgb Hct MCHC RDW Lymph % (Auto) [place] % (Auto) Eos % (Auto) Lymph # [place] # Lymph # (Auto) [place] # (Auto) Seg Neutrophils % Seg Neuts % (Manual) Lymphocytes % (Manual) Seg Neutrophils # Seg Neutrophils # Man Lymphocytes # (Manual) Monocytes % (Manual) Eosinophils % (Manual) Monocytes # (Manual) Eosinophils # (Manual) D-Dimer Heparin Anti-Xa Level ABG pH POC ABG pCO2 POC ABG pO2 ABG pO2 ABG HCO3 ABG O2 Saturation ABG Base Excess ABG Hemoglobin ABG Oxyhemoglobin VBG pH ABG Sodium ABG Potassium ABG Glucose Oxyhemoglobin Sodium Potassium Chloride Carbon Dioxide BUN 75 H Creatinine 2.6 H Glucose 179 H POC Glucose 172 H 153 H Lactic Acid Calcium Ferritin AST Alkaline Phosphatase Magnesium Lactate Dehydrogenase Total Creatine Kinase CK-MB (CK-2) C-Reactive Protein Total Protein Albumin Troponin T HDL Cholesterol Arterial Blood Glucose Urine WBC (Auto) Urine Creatinine Urine Total Protein Coronavirus (PCR) Crossmatch 06/24/20 06/24/20 06/25/20 16:38 21:52 12:00 WBC RBC Hgb Hct MCHC RDW Lymph % (Auto) [place] % (Auto) Eos % (Auto) Lymph # [place] # Lymph # (Auto) [place] # (Auto) Seg Neutrophils % Seg Neuts % (Manual) Lymphocytes % (Manual) Seg Neutrophils # Seg Neutrophils # Man Lymphocytes # (Manual) Monocytes % (Manual) Eosinophils % (Manual) Monocytes # (Manual) Eosinophils # (Manual) D-Dimer Heparin Anti-Xa Level ABG pH POC ABG pCO2 POC ABG pO2 ABG pO2 ABG HCO3 ABG O2 Saturation ABG Base Excess ABG Hemoglobin ABG Oxyhemoglobin VBG pH ABG Sodium ABG Potassium ABG Glucose Oxyhemoglobin Sodium Potassium Chloride Carbon Dioxide BUN Creatinine Glucose POC Glucose 123 H 115 H 203 H Lactic Acid Calcium Ferritin AST Alkaline Phosphatase Magnesium Lactate Dehydrogenase Total Creatine Kinase CK-MB (CK-2) C-Reactive Protein Total Protein Albumin Troponin T HDL Cholesterol Arterial Blood Glucose Urine WBC (Auto) Urine Creatinine Urine Total Protein Coronavirus (PCR) Crossmatch 06/25/20 06/25/20 06/25/20 15:43 16:37 23:02 WBC RBC Hgb Hct MCHC RDW Lymph % (Auto) [place] % (Auto) Eos % (Auto) Lymph # [place] # Lymph # (Auto) [place] # (Auto) Seg Neutrophils % Seg Neuts % (Manual) Lymphocytes % (Manual) Seg Neutrophils # Seg Neutrophils # Man Lymphocytes # (Manual) Monocytes % (Manual) Eosinophils % (Manual) Monocytes # (Manual) Eosinophils # (Manual) D-Dimer Heparin Anti-Xa Level ABG pH POC ABG pCO2 POC ABG pO2 ABG pO2 ABG HCO3 ABG O2 Saturation ABG Base Excess ABG Hemoglobin ABG Oxyhemoglobin VBG pH ABG Sodium ABG Potassium ABG Glucose Oxyhemoglobin Sodium Potassium Chloride Carbon Dioxide BUN 71 H Creatinine 1.8 H Glucose 170 H POC Glucose 191 H 126 H Lactic Acid Calcium 8.2 L Ferritin AST Alkaline Phosphatase Magnesium Lactate Dehydrogenase Total Creatine Kinase CK-MB (CK-2) C-Reactive Protein Total Protein Albumin Troponin T HDL Cholesterol Arterial Blood Glucose Urine WBC (Auto) Urine Creatinine Urine Total Protein Coronavirus (PCR) Crossmatch 06/26/20 06/26/20 06/26/20 06:34 06:34 09:27 WBC RBC 2.41 L Hgb 6.9 L Hct 21.5 L MCHC RDW 16.7 H Lymph % (Auto) 10.9 L [place] % (Auto) 9.6 H Eos % (Auto) Lymph # 0.7 L [place] # Lymph # (Auto) [place] # (Auto) Seg Neutrophils % 75.4 H Seg Neuts % (Manual) Lymphocytes % (Manual) Seg Neutrophils # Seg Neutrophils # Man Lymphocytes # (Manual) Monocytes % (Manual) Eosinophils % (Manual) Monocytes # (Manual) Eosinophils # (Manual) D-Dimer Heparin Anti-Xa Level ABG pH POC ABG pCO2 POC ABG pO2 ABG pO2 ABG HCO3 ABG O2 Saturation ABG Base Excess ABG Hemoglobin ABG Oxyhemoglobin VBG pH ABG Sodium ABG Potassium ABG Glucose Oxyhemoglobin Sodium Potassium Chloride Carbon Dioxide BUN 77 H Creatinine 1.9 H Glucose 190 H POC Glucose Lactic Acid Calcium Ferritin AST Alkaline Phosphatase Magnesium Lactate Dehydrogenase Total Creatine Kinase CK-MB (CK-2) C-Reactive Protein Total Protein Albumin Troponin T HDL Cholesterol Arterial Blood Glucose Urine WBC (Auto) Urine Creatinine Urine Total Protein Coronavirus (PCR) Crossmatch See Detail 06/26/20 06/26/20 06/26/20 12:15 16:28 17:28 WBC RBC Hgb Hct MCHC RDW Lymph % (Auto) [place] % (Auto) Eos % (Auto) Lymph # [place] # Lymph # (Auto) [place] # (Auto) Seg Neutrophils % Seg Neuts % (Manual) Lymphocytes % (Manual) Seg Neutrophils # Seg Neutrophils # Man Lymphocytes # (Manual) Monocytes % (Manual) Eosinophils % (Manual) Monocytes # (Manual) Eosinophils # (Manual) D-Dimer Heparin Anti-Xa Level ABG pH POC ABG pCO2 POC ABG pO2 ABG pO2 ABG HCO3 ABG O2 Saturation ABG Base Excess ABG Hemoglobin ABG Oxyhemoglobin VBG pH ABG Sodium ABG Potassium ABG Glucose Oxyhemoglobin Sodium Potassium Chloride Carbon Dioxide BUN Creatinine Glucose POC Glucose 187 H 149 H 189 H Lactic Acid Calcium Ferritin AST Alkaline Phosphatase Magnesium Lactate Dehydrogenase Total Creatine Kinase CK-MB (CK-2) C-Reactive Protein Total Protein Albumin Troponin T HDL Cholesterol Arterial Blood Glucose Urine WBC (Auto) Urine Creatinine Urine Total Protein Coronavirus (PCR) Crossmatch 06/26/20 06/26/20 06/26/20 18:30 18:30 18:30 WBC RBC 2.87 L Hgb 8.2 L Hct 25.9 L MCHC RDW 17.8 H Lymph % (Auto) [place] % (Auto) Eos % (Auto) Lymph # [place] # Lymph # (Auto) [place] # (Auto) Seg Neutrophils % Seg Neuts % (Manual) 83.0 H Lymphocytes % (Manual) 8.0 L Seg Neutrophils # Seg Neutrophils # Man Lymphocytes # (Manual) 0.6 L Monocytes % (Manual) Eosinophils % (Manual) Monocytes # (Manual) Eosinophils # (Manual) D-Dimer Heparin Anti-Xa Level ABG pH POC ABG pCO2 POC ABG pO2 ABG pO2 ABG HCO3 ABG O2 Saturation ABG Base Excess ABG Hemoglobin ABG Oxyhemoglobin VBG pH ABG Sodium ABG Potassium ABG Glucose Oxyhemoglobin Sodium Potassium Chloride Carbon Dioxide BUN 80 H Creatinine 2.1 H Glucose 260 H POC Glucose Lactic Acid 4.30 H* Calcium 8.3 L Ferritin AST Alkaline Phosphatase Magnesium Lactate Dehydrogenase Total Creatine Kinase CK-MB (CK-2) C-Reactive Protein Total Protein Albumin Troponin T HDL Cholesterol Arterial Blood Glucose Urine WBC (Auto) Urine Creatinine Urine Total Protein Coronavirus (PCR) Crossmatch 06/26/20 06/27/20 06/27/20 18:50 01:00 04:29 WBC RBC Hgb Hct MCHC RDW Lymph % (Auto) [place] % (Auto) Eos % (Auto) Lymph # [place] # Lymph # (Auto) [place] # (Auto) Seg Neutrophils % Seg Neuts % (Manual) Lymphocytes % (Manual) Seg Neutrophils # Seg Neutrophils # Man Lymphocytes # (Manual) Monocytes % (Manual) Eosinophils % (Manual) Monocytes # (Manual) Eosinophils # (Manual) D-Dimer Heparin Anti-Xa Level ABG pH 7.296 L POC ABG pCO2 POC ABG pO2 ABG pO2 116.5 H 200.5 H ABG HCO3 28.4 H ABG O2 Saturation 99.3 H ABG Base Excess 3.7 H ABG Hemoglobin 5.6 L ABG Oxyhemoglobin VBG pH ABG Sodium ABG Potassium ABG Glucose Oxyhemoglobin Sodium Potassium Chloride Carbon Dioxide BUN Creatinine Glucose POC Glucose 123 H Lactic Acid Calcium Ferritin AST Alkaline Phosphatase Magnesium Lactate Dehydrogenase Total Creatine Kinase CK-MB (CK-2) C-Reactive Protein Total Protein Albumin Troponin T HDL Cholesterol Arterial Blood Glucose Urine WBC (Auto) Urine Creatinine Urine Total Protein Coronavirus (PCR) Crossmatch 06/27/20 06/27/20 06/27/20 05:00 05:00 05:00 WBC RBC 2.75 L Hgb 7.9 L Hct 24.3 L MCHC RDW 17.1 H Lymph % (Auto) 8.5 L [place] % (Auto) 12.6 H Eos % (Auto) Lymph # 0.7 L [place] # 1.0 H Lymph # (Auto) [place] # (Auto) Seg Neutrophils % 77.5 H Seg Neuts % (Manual) Lymphocytes % (Manual) Seg Neutrophils # Seg Neutrophils # Man Lymphocytes # (Manual) Monocytes % (Manual) Eosinophils % (Manual) Monocytes # (Manual) Eosinophils # (Manual) D-Dimer Heparin Anti-Xa Level ABG pH POC ABG pCO2 POC ABG pO2 ABG pO2 ABG HCO3 ABG O2 Saturation ABG Base Excess ABG Hemoglobin ABG Oxyhemoglobin VBG pH ABG Sodium ABG Potassium ABG Glucose Oxyhemoglobin Sodium Potassium Chloride Carbon Dioxide BUN 80 H Creatinine 2.0 H Glucose 129 H POC Glucose Lactic Acid 0.60 L Calcium 7.9 L Ferritin AST Alkaline Phosphatase Magnesium Lactate Dehydrogenase Total Creatine Kinase CK-MB (CK-2) C-Reactive Protein Total Protein Albumin Troponin T HDL Cholesterol Arterial Blood Glucose Urine WBC (Auto) Urine Creatinine Urine Total Protein Coronavirus (PCR) Crossmatch 06/27/20 06/27/20 06/27/20 05:23 13:46 17:25 WBC RBC Hgb Hct MCHC RDW Lymph % (Auto) [place] % (Auto) Eos % (Auto) Lymph # [place] # Lymph # (Auto) [place] # (Auto) Seg Neutrophils % Seg Neuts % (Manual) Lymphocytes % (Manual) Seg Neutrophils # Seg Neutrophils # Man Lymphocytes # (Manual) Monocytes % (Manual) Eosinophils % (Manual) Monocytes # (Manual) Eosinophils # (Manual) D-Dimer Heparin Anti-Xa Level ABG pH POC ABG pCO2 POC ABG pO2 ABG pO2 ABG HCO3 ABG O2 Saturation ABG Base Excess ABG Hemoglobin ABG Oxyhemoglobin VBG pH ABG Sodium ABG Potassium ABG Glucose Oxyhemoglobin Sodium Potassium Chloride Carbon Dioxide BUN Creatinine Glucose POC Glucose 109 H 158 H 162 H Lactic Acid Calcium Ferritin AST Alkaline Phosphatase Magnesium Lactate Dehydrogenase Total Creatine Kinase CK-MB (CK-2) C-Reactive Protein Total Protein Albumin Troponin T HDL Cholesterol Arterial Blood Glucose Urine WBC (Auto) Urine Creatinine Urine Total Protein Coronavirus (PCR) Crossmatch 06/27/20 06/27/20 06/28/20 18:43 23:46 04:05 WBC RBC Hgb 7.7 L Hct 22.1 L MCHC RDW Lymph % (Auto) [place] % (Auto) Eos % (Auto) Lymph # [place] # Lymph # (Auto) [place] # (Auto) Seg Neutrophils % Seg Neuts % (Manual) Lymphocytes % (Manual) Seg Neutrophils # Seg Neutrophils # Man Lymphocytes # (Manual) Monocytes % (Manual) Eosinophils % (Manual) Monocytes # (Manual) Eosinophils # (Manual) D-Dimer Heparin Anti-Xa Level ABG pH POC ABG pCO2 POC ABG pO2 ABG pO2 102.7 H ABG HCO3 28.7 H ABG O2 Saturation ABG Base Excess 3.7 H ABG Hemoglobin ABG Oxyhemoglobin VBG pH ABG Sodium ABG Potassium ABG Glucose Oxyhemoglobin Sodium Potassium Chloride Carbon Dioxide BUN Creatinine Glucose POC Glucose 142 H Lactic Acid Calcium Ferritin AST Alkaline Phosphatase Magnesium Lactate Dehydrogenase Total Creatine Kinase CK-MB (CK-2) C-Reactive Protein Total Protein Albumin Troponin T HDL Cholesterol Arterial Blood Glucose Urine WBC (Auto) Urine Creatinine Urine Total Protein Coronavirus (PCR) Crossmatch 06/28/20 06/28/20 06/28/20 09:47 09:47 12:02 WBC RBC 2.53 L Hgb 7.4 L Hct 22.2 L MCHC RDW 16.8 H Lymph % (Auto) [place] % (Auto) 13.5 H Eos % (Auto) Lymph # 1.1 L [place] # 1.0 H Lymph # (Auto) [place] # (Auto) Seg Neutrophils % Seg Neuts % (Manual) Lymphocytes % (Manual) Seg Neutrophils # Seg Neutrophils # Man Lymphocytes # (Manual) Monocytes % (Manual) Eosinophils % (Manual) Monocytes # (Manual) Eosinophils # (Manual) D-Dimer Heparin Anti-Xa Level ABG pH POC ABG pCO2 POC ABG pO2 ABG pO2 ABG HCO3 ABG O2 Saturation ABG Base Excess ABG Hemoglobin ABG Oxyhemoglobin VBG pH ABG Sodium ABG Potassium ABG Glucose Oxyhemoglobin Sodium Potassium Chloride Carbon Dioxide BUN 80 H Creatinine 1.5 H Glucose 139 H POC Glucose 169 H Lactic Acid Calcium 7.9 L Ferritin AST Alkaline Phosphatase Magnesium Lactate Dehydrogenase Total Creatine Kinase CK-MB (CK-2) C-Reactive Protein Total Protein 5.0 L Albumin 2.1 L Troponin T HDL Cholesterol Arterial Blood Glucose Urine WBC (Auto) Urine Creatinine Urine Total Protein Coronavirus (PCR) Crossmatch 06/28/20 06/28/20 06/28/20 12:30 12:30 17:24 WBC RBC 2.38 L Hgb 7.3 L Hct 20.9 L MCHC 35 H RDW 16.7 H Lymph % (Auto) [place] % (Auto) Eos % (Auto) Lymph # [place] # Lymph # (Auto) [place] # (Auto) Seg Neutrophils % Seg Neuts % (Manual) Lymphocytes % (Manual) Seg Neutrophils # Seg Neutrophils # Man Lymphocytes # (Manual) Monocytes % (Manual) Eosinophils % (Manual) Monocytes # (Manual) Eosinophils # (Manual) D-Dimer Heparin Anti-Xa Level ABG pH POC ABG pCO2 POC ABG pO2 ABG pO2 ABG HCO3 ABG O2 Saturation ABG Base Excess ABG Hemoglobin ABG Oxyhemoglobin VBG pH ABG Sodium ABG Potassium ABG Glucose Oxyhemoglobin Sodium Potassium Chloride Carbon Dioxide BUN 74 H Creatinine 1.5 H Glucose 143 H POC Glucose 173 H Lactic Acid Calcium 7.5 L Ferritin AST Alkaline Phosphatase Magnesium Lactate Dehydrogenase Total Creatine Kinase CK-MB (CK-2) C-Reactive Protein Total Protein Albumin Troponin T HDL Cholesterol Arterial Blood Glucose Urine WBC (Auto) Urine Creatinine Urine Total Protein Coronavirus (PCR) Crossmatch 06/29/20 06/29/20 06/29/20 00:02 03:54 04:38 WBC RBC 2.55 L Hgb 7.3 L Hct 22.4 L MCHC RDW 16.4 H Lymph % (Auto) 13.3 L [place] % (Auto) 12.5 H Eos % (Auto) Lymph # 1.1 L [place] # 1.0 H Lymph # (Auto) [place] # (Auto) Seg Neutrophils % Seg Neuts % (Manual) Lymphocytes % (Manual) Seg Neutrophils # Seg Neutrophils # Man Lymphocytes # (Manual) Monocytes % (Manual) Eosinophils % (Manual) Monocytes # (Manual) Eosinophils # (Manual) D-Dimer Heparin Anti-Xa Level ABG pH POC ABG pCO2 POC ABG pO2 ABG pO2 ABG HCO3 26.9 H ABG O2 Saturation ABG Base Excess ABG Hemoglobin 6.9 L ABG Oxyhemoglobin VBG pH ABG Sodium ABG Potassium ABG Glucose Oxyhemoglobin Sodium Potassium Chloride Carbon Dioxide BUN Creatinine Glucose POC Glucose 142 H Lactic Acid Calcium Ferritin AST Alkaline Phosphatase Magnesium Lactate Dehydrogenase Total Creatine Kinase CK-MB (CK-2) C-Reactive Protein Total Protein Albumin Troponin T HDL Cholesterol Arterial Blood Glucose Urine WBC (Auto) Urine Creatinine Urine Total Protein Coronavirus (PCR) Crossmatch 06/29/20 06/29/20 06/29/20 04:38 05:38 12:25 WBC RBC Hgb Hct MCHC RDW Lymph % (Auto) [place] % (Auto) Eos % (Auto) Lymph # [place] # Lymph # (Auto) [place] # (Auto) Seg Neutrophils % Seg Neuts % (Manual) Lymphocytes % (Manual) Seg Neutrophils # Seg Neutrophils # Man Lymphocytes # (Manual) Monocytes % (Manual) Eosinophils % (Manual) Monocytes # (Manual) Eosinophils # (Manual) D-Dimer Heparin Anti-Xa Level ABG pH POC ABG pCO2 POC ABG pO2 ABG pO2 ABG HCO3 ABG O2 Saturation ABG Base Excess ABG Hemoglobin ABG Oxyhemoglobin VBG pH ABG Sodium ABG Potassium ABG Glucose Oxyhemoglobin Sodium Potassium Chloride 107.8 H Carbon Dioxide BUN 72 H Creatinine 1.4 H Glucose 127 H POC Glucose 122 H 138 H Lactic Acid Calcium 7.4 L Ferritin AST Alkaline Phosphatase Magnesium Lactate Dehydrogenase Total Creatine Kinase CK-MB (CK-2) C-Reactive Protein Total Protein Albumin Troponin T HDL Cholesterol Arterial Blood Glucose Urine WBC (Auto) Urine Creatinine Urine Total Protein Coronavirus (PCR) Crossmatch 06/29/20 06/29/20 06/29/20 14:45 14:45 14:45 WBC RBC Hgb Hct MCHC RDW Lymph % (Auto) [place] % (Auto) Eos % (Auto) Lymph # [place] # Lymph # (Auto) [place] # (Auto) Seg Neutrophils % Seg Neuts % (Manual) Lymphocytes % (Manual) Seg Neutrophils # Seg Neutrophils # Man Lymphocytes # (Manual) Monocytes % (Manual) Eosinophils % (Manual) Monocytes # (Manual) Eosinophils # (Manual) D-Dimer 2310.15 H Heparin Anti-Xa Level ABG pH POC ABG pCO2 POC ABG pO2 ABG pO2 ABG HCO3 ABG O2 Saturation ABG Base Excess ABG Hemoglobin ABG Oxyhemoglobin VBG pH ABG Sodium ABG Potassium ABG Glucose Oxyhemoglobin Sodium Potassium Chloride Carbon Dioxide BUN Creatinine Glucose POC Glucose Lactic Acid Calcium Ferritin 223.6 H AST Alkaline Phosphatase Magnesium Lactate Dehydrogenase 367 H Total Creatine Kinase CK-MB (CK-2) C-Reactive Protein 3.60 H Total Protein Albumin Troponin T HDL Cholesterol Arterial Blood Glucose Urine WBC (Auto) Urine Creatinine Urine Total Protein Coronavirus (PCR) Crossmatch 06/29/20 06/29/20 06/29/20 18:27 23:35 Unknown WBC RBC Hgb Hct MCHC RDW Lymph % (Auto) [place] % (Auto) Eos % (Auto) Lymph # [place] # Lymph # (Auto) [place] # (Auto) Seg Neutrophils % Seg Neuts % (Manual) Lymphocytes % (Manual) Seg Neutrophils # Seg Neutrophils # Man Lymphocytes # (Manual) Monocytes % (Manual) Eosinophils % (Manual) Monocytes # (Manual) Eosinophils # (Manual) D-Dimer Heparin Anti-Xa Level ABG pH POC ABG pCO2 POC ABG pO2 ABG pO2 ABG HCO3 ABG O2 Saturation ABG Base Excess ABG Hemoglobin ABG Oxyhemoglobin VBG pH ABG Sodium ABG Potassium ABG Glucose Oxyhemoglobin Sodium Potassium Chloride Carbon Dioxide BUN Creatinine Glucose POC Glucose 112 H 140 H Lactic Acid Calcium Ferritin AST Alkaline Phosphatase Magnesium Lactate Dehydrogenase Total Creatine Kinase CK-MB (CK-2) C-Reactive Protein Total Protein Albumin Troponin T HDL Cholesterol Arterial Blood Glucose Urine WBC (Auto) Urine Creatinine Urine Total Protein Coronavirus (PCR) Positive A Crossmatch 06/30/20 06/30/20 06/30/20 04:10 04:10 06:09 WBC RBC 2.44 L Hgb 7.1 L Hct 21.5 L MCHC RDW 16.6 H Lymph % (Auto) 11.0 L [place] % (Auto) 10.8 H Eos % (Auto) Lymph # 0.9 L [place] # 0.9 H Lymph # (Auto) [place] # (Auto) Seg Neutrophils % 73.7 H Seg Neuts % (Manual) Lymphocytes % (Manual) Seg Neutrophils # Seg Neutrophils # Man Lymphocytes # (Manual) Monocytes % (Manual) Eosinophils % (Manual) Monocytes # (Manual) Eosinophils # (Manual) D-Dimer Heparin Anti-Xa Level ABG pH POC ABG pCO2 POC ABG pO2 ABG pO2 ABG HCO3 ABG O2 Saturation ABG Base Excess ABG Hemoglobin ABG Oxyhemoglobin VBG pH ABG Sodium ABG Potassium ABG Glucose Oxyhemoglobin Sodium Potassium Chloride 109.1 H Carbon Dioxide BUN 74 H Creatinine 1.3 H Glucose 191 H POC Glucose 187 H Lactic Acid Calcium 7.8 L Ferritin AST Alkaline Phosphatase Magnesium Lactate Dehydrogenase Total Creatine Kinase CK-MB (CK-2) C-Reactive Protein Total Protein Albumin Troponin T HDL Cholesterol Arterial Blood Glucose Urine WBC (Auto) Urine Creatinine Urine Total Protein Coronavirus (PCR) Crossmatch 06/30/20 06/30/20 06/30/20 12:04 17:43 23:41 WBC RBC Hgb Hct MCHC RDW Lymph % (Auto) [place] % (Auto) Eos % (Auto) Lymph # [place] # Lymph # (Auto) [place] # (Auto) Seg Neutrophils % Seg Neuts % (Manual) Lymphocytes % (Manual) Seg Neutrophils # Seg Neutrophils # Man Lymphocytes # (Manual) Monocytes % (Manual) Eosinophils % (Manual) Monocytes # (Manual) Eosinophils # (Manual) D-Dimer Heparin Anti-Xa Level ABG pH POC ABG pCO2 POC ABG pO2 ABG pO2 ABG HCO3 ABG O2 Saturation ABG Base Excess ABG Hemoglobin ABG Oxyhemoglobin VBG pH ABG Sodium ABG Potassium ABG Glucose Oxyhemoglobin Sodium Potassium Chloride Carbon Dioxide BUN Creatinine Glucose POC Glucose 112 H 177 H 143 H Lactic Acid Calcium Ferritin AST Alkaline Phosphatase Magnesium Lactate Dehydrogenase Total Creatine Kinase CK-MB (CK-2) C-Reactive Protein Total Protein Albumin Troponin T HDL Cholesterol Arterial Blood Glucose Urine WBC (Auto) Urine Creatinine Urine Total Protein Coronavirus (PCR) Crossmatch 07/01/20 07/01/20 07/01/20 05:02 05:52 06:01 WBC 12.6 H RBC 2.95 L Hgb 8.2 L Hct 26.0 L MCHC RDW 16.9 H Lymph % (Auto) [place] % (Auto) Eos % (Auto) Lymph # [place] # Lymph # (Auto) [place] # (Auto) Seg Neutrophils % Seg Neuts % (Manual) Lymphocytes % (Manual) Seg Neutrophils # Seg Neutrophils # Man 8.6 H Lymphocytes # (Manual) Monocytes % (Manual) Eosinophils % (Manual) 5.0 H Monocytes # (Manual) Eosinophils # (Manual) 0.6 H D-Dimer Heparin Anti-Xa Level ABG pH POC ABG pCO2 POC ABG pO2 ABG pO2 ABG HCO3 ABG O2 Saturation ABG Base Excess ABG Hemoglobin 8.2 L ABG Oxyhemoglobin VBG pH ABG Sodium ABG Potassium ABG Glucose Oxyhemoglobin Sodium Potassium Chloride Carbon Dioxide BUN Creatinine Glucose POC Glucose 129 H Lactic Acid Calcium Ferritin AST Alkaline Phosphatase Magnesium Lactate Dehydrogenase Total Creatine Kinase CK-MB (CK-2) C-Reactive Protein Total Protein Albumin Troponin T HDL Cholesterol Arterial Blood Glucose Urine WBC (Auto) Urine Creatinine Urine Total Protein Coronavirus (PCR) Crossmatch 07/01/20 07/01/20 07/01/20 06:01 06:01 06:08 WBC RBC Hgb Hct MCHC RDW Lymph % (Auto) [place] % (Auto) Eos % (Auto) Lymph # [place] # Lymph # (Auto) [place] # (Auto) Seg Neutrophils % Seg Neuts % (Manual) Lymphocytes % (Manual) Seg Neutrophils # Seg Neutrophils # Man Lymphocytes # (Manual) Monocytes % (Manual) Eosinophils % (Manual) Monocytes # (Manual) Eosinophils # (Manual) D-Dimer Heparin Anti-Xa Level ABG pH POC ABG pCO2 POC ABG pO2 ABG pO2 ABG HCO3 ABG O2 Saturation ABG Base Excess ABG Hemoglobin ABG Oxyhemoglobin VBG pH ABG Sodium ABG Potassium ABG Glucose Oxyhemoglobin Sodium 147 H Potassium Chloride 108.0 H Carbon Dioxide BUN 71 H Creatinine 1.3 H Glucose 193 H POC Glucose 192 H Lactic Acid Calcium 8.1 L Ferritin AST Alkaline Phosphatase Magnesium Lactate Dehydrogenase Total Creatine Kinase 300 H CK-MB (CK-2) C-Reactive Protein Total Protein Albumin Troponin T 0.067 H HDL Cholesterol 61 H Arterial Blood Glucose Urine WBC (Auto) Urine Creatinine Urine Total Protein Coronavirus (PCR) Crossmatch 07/01/20 07/01/20 07/02/20 12:23 17:40 00:18 WBC RBC Hgb Hct MCHC RDW Lymph % (Auto) [place] % (Auto) Eos % (Auto) Lymph # [place] # Lymph # (Auto) [place] # (Auto) Seg Neutrophils % Seg Neuts % (Manual) Lymphocytes % (Manual) Seg Neutrophils # Seg Neutrophils # Man Lymphocytes # (Manual) Monocytes % (Manual) Eosinophils % (Manual) Monocytes # (Manual) Eosinophils # (Manual) D-Dimer Heparin Anti-Xa Level ABG pH POC ABG pCO2 POC ABG pO2 ABG pO2 ABG HCO3 ABG O2 Saturation ABG Base Excess ABG Hemoglobin ABG Oxyhemoglobin VBG pH ABG Sodium ABG Potassium ABG Glucose Oxyhemoglobin Sodium Potassium Chloride Carbon Dioxide BUN Creatinine Glucose POC Glucose 111 H 135 H 145 H Lactic Acid Calcium Ferritin AST Alkaline Phosphatase Magnesium Lactate Dehydrogenase Total Creatine Kinase CK-MB (CK-2) C-Reactive Protein Total Protein Albumin Troponin T HDL Cholesterol Arterial Blood Glucose Urine WBC (Auto) Urine Creatinine Urine Total Protein Coronavirus (PCR) Crossmatch 07/02/20 07/02/20 07/02/20 04:11 04:23 05:54 WBC RBC Hgb Hct MCHC RDW Lymph % (Auto) [place] % (Auto) Eos % (Auto) Lymph # [place] # Lymph # (Auto) [place] # (Auto) Seg Neutrophils % Seg Neuts % (Manual) Lymphocytes % (Manual) Seg Neutrophils # Seg Neutrophils # Man Lymphocytes # (Manual) Monocytes % (Manual) Eosinophils % (Manual) Monocytes # (Manual) Eosinophils # (Manual) D-Dimer Heparin Anti-Xa Level ABG pH POC ABG pCO2 POC ABG pO2 ABG pO2 ABG HCO3 ABG O2 Saturation ABG Base Excess ABG Hemoglobin 5.4 L ABG Oxyhemoglobin VBG pH ABG Sodium ABG Potassium ABG Glucose Oxyhemoglobin Sodium Potassium Chloride 108.6 H Carbon Dioxide BUN 72 H Creatinine Glucose 112 H POC Glucose 137 H Lactic Acid Calcium 7.8 L Ferritin AST Alkaline Phosphatase Magnesium Lactate Dehydrogenase Total Creatine Kinase CK-MB (CK-2) C-Reactive Protein Total Protein Albumin Troponin T HDL Cholesterol Arterial Blood Glucose Urine WBC (Auto) Urine Creatinine Urine Total Protein Coronavirus (PCR) Crossmatch 07/02/20 07/02/20 07/02/20 11:38 18:04 23:59 WBC RBC Hgb Hct MCHC RDW Lymph % (Auto) [place] % (Auto) Eos % (Auto) Lymph # [place] # Lymph # (Auto) [place] # (Auto) Seg Neutrophils % Seg Neuts % (Manual) Lymphocytes % (Manual) Seg Neutrophils # Seg Neutrophils # Man Lymphocytes # (Manual) Monocytes % (Manual) Eosinophils % (Manual) Monocytes # (Manual) Eosinophils # (Manual) D-Dimer Heparin Anti-Xa Level ABG pH POC ABG pCO2 POC ABG pO2 ABG pO2 ABG HCO3 ABG O2 Saturation ABG Base Excess ABG Hemoglobin ABG Oxyhemoglobin VBG pH ABG Sodium ABG Potassium ABG Glucose Oxyhemoglobin Sodium Potassium Chloride Carbon Dioxide BUN Creatinine Glucose POC Glucose 128 H 135 H 156 H Lactic Acid Calcium Ferritin AST Alkaline Phosphatase Magnesium Lactate Dehydrogenase Total Creatine Kinase CK-MB (CK-2) C-Reactive Protein Total Protein Albumin Troponin T HDL Cholesterol Arterial Blood Glucose Urine WBC (Auto) Urine Creatinine Urine Total Protein Coronavirus (PCR) Crossmatch 07/03/20 07/03/20 07/03/20 03:49 06:00 11:31 WBC RBC Hgb Hct MCHC RDW Lymph % (Auto) [place] % (Auto) Eos % (Auto) Lymph # [place] # Lymph # (Auto) [place] # (Auto) Seg Neutrophils % Seg Neuts % (Manual) Lymphocytes % (Manual) Seg Neutrophils # Seg Neutrophils # Man Lymphocytes # (Manual) Monocytes % (Manual) Eosinophils % (Manual) Monocytes # (Manual) Eosinophils # (Manual) D-Dimer Heparin Anti-Xa Level ABG pH POC ABG pCO2 POC ABG pO2 ABG pO2 121.0 H ABG HCO3 ABG O2 Saturation ABG Base Excess ABG Hemoglobin 8.5 L ABG Oxyhemoglobin VBG pH ABG Sodium ABG Potassium ABG Glucose Oxyhemoglobin Sodium Potassium Chloride Carbon Dioxide BUN Creatinine Glucose POC Glucose 135 H 141 H Lactic Acid Calcium Ferritin AST Alkaline Phosphatase Magnesium Lactate Dehydrogenase Total Creatine Kinase CK-MB (CK-2) C-Reactive Protein Total Protein Albumin Troponin T HDL Cholesterol Arterial Blood Glucose Urine WBC (Auto) Urine Creatinine Urine Total Protein Coronavirus (PCR) Crossmatch 07/03/20 07/03/20 07/04/20 16:07 17:40 05:49 WBC RBC Hgb Hct MCHC RDW Lymph % (Auto) [place] % (Auto) Eos % (Auto) Lymph # [place] # Lymph # (Auto) [place] # (Auto) Seg Neutrophils % Seg Neuts % (Manual) Lymphocytes % (Manual) Seg Neutrophils # Seg Neutrophils # Man Lymphocytes # (Manual) Monocytes % (Manual) Eosinophils % (Manual) Monocytes # (Manual) Eosinophils # (Manual) D-Dimer Heparin Anti-Xa Level ABG pH POC ABG pCO2 POC ABG pO2 ABG pO2 126.9 H ABG HCO3 ABG O2 Saturation ABG Base Excess ABG Hemoglobin 8.1 L ABG Oxyhemoglobin VBG pH ABG Sodium ABG Potassium ABG Glucose Oxyhemoglobin Sodium Potassium Chloride Carbon Dioxide BUN Creatinine Glucose POC Glucose 120 H 128 H Lactic Acid Calcium Ferritin AST Alkaline Phosphatase Magnesium Lactate Dehydrogenase Total Creatine Kinase CK-MB (CK-2) C-Reactive Protein Total Protein Albumin Troponin T HDL Cholesterol Arterial Blood Glucose Urine WBC (Auto) Urine Creatinine Urine Total Protein Coronavirus (PCR) Crossmatch 07/04/20 07/04/20 07/05/20 11:54 18:00 00:07 WBC RBC Hgb Hct MCHC RDW Lymph % (Auto) [place] % (Auto) Eos % (Auto) Lymph # [place] # Lymph # (Auto) [place] # (Auto) Seg Neutrophils % Seg Neuts % (Manual) Lymphocytes % (Manual) Seg Neutrophils # Seg Neutrophils # Man Lymphocytes # (Manual) Monocytes % (Manual) Eosinophils % (Manual) Monocytes # (Manual) Eosinophils # (Manual) D-Dimer Heparin Anti-Xa Level ABG pH POC ABG pCO2 POC ABG pO2 ABG pO2 ABG HCO3 ABG O2 Saturation ABG Base Excess ABG Hemoglobin ABG Oxyhemoglobin VBG pH ABG Sodium ABG Potassium ABG Glucose Oxyhemoglobin Sodium Potassium Chloride Carbon Dioxide BUN Creatinine Glucose POC Glucose 168 H 133 H 121 H Lactic Acid Calcium Ferritin AST Alkaline Phosphatase Magnesium Lactate Dehydrogenase Total Creatine Kinase CK-MB (CK-2) C-Reactive Protein Total Protein Albumin Troponin T HDL Cholesterol Arterial Blood Glucose Urine WBC (Auto) Urine Creatinine Urine Total Protein Coronavirus (PCR) Crossmatch 07/05/20 07/05/20 07/05/20 01:12 02:30 12:09 WBC RBC 2.35 L Hgb 6.9 L Hct 21.1 L MCHC RDW 16.8 H Lymph % (Auto) [place] % (Auto) Eos % (Auto) Lymph # [place] # Lymph # (Auto) [place] # (Auto) Seg Neutrophils % Seg Neuts % (Manual) 74.0 H Lymphocytes % (Manual) 12.0 L Seg Neutrophils # Seg Neutrophils # Man 8.0 H Lymphocytes # (Manual) Monocytes % (Manual) 9.0 H Eosinophils % (Manual) Monocytes # (Manual) 1.0 H Eosinophils # (Manual) D-Dimer Heparin Anti-Xa Level ABG pH POC ABG pCO2 POC ABG pO2 ABG pO2 ABG HCO3 ABG O2 Saturation ABG Base Excess ABG Hemoglobin ABG Oxyhemoglobin VBG pH ABG Sodium ABG Potassium ABG Glucose Oxyhemoglobin Sodium Potassium Chloride Carbon Dioxide BUN Creatinine Glucose POC Glucose 132 H Lactic Acid Calcium Ferritin AST Alkaline Phosphatase Magnesium Lactate Dehydrogenase Total Creatine Kinase CK-MB (CK-2) C-Reactive Protein Total Protein Albumin Troponin T HDL Cholesterol Arterial Blood Glucose Urine WBC (Auto) Urine Creatinine Urine Total Protein Coronavirus (PCR) Crossmatch See Detail 07/05/20 07/05/20 07/05/20 13:05 18:04 23:13 WBC RBC 2.57 L Hgb 7.7 L Hct 23.0 L MCHC RDW 16.9 H Lymph % (Auto) [place] % (Auto) Eos % (Auto) Lymph # [place] # Lymph # (Auto) [place] # (Auto) Seg Neutrophils % Seg Neuts % (Manual) Lymphocytes % (Manual) Seg Neutrophils # Seg Neutrophils # Man Lymphocytes # (Manual) Monocytes % (Manual) Eosinophils % (Manual) Monocytes # (Manual) Eosinophils # (Manual) D-Dimer Heparin Anti-Xa Level ABG pH 7.32 L POC ABG pCO2 POC ABG pO2 ABG pO2 78.3 L ABG HCO3 ABG O2 Saturation ABG Base Excess -2.6 L ABG Hemoglobin 7.3 L ABG Oxyhemoglobin VBG pH ABG Sodium ABG Potassium ABG Glucose Oxyhemoglobin Sodium Potassium Chloride Carbon Dioxide BUN Creatinine Glucose POC Glucose 160 H Lactic Acid Calcium Ferritin AST Alkaline Phosphatase Magnesium Lactate Dehydrogenase Total Creatine Kinase CK-MB (CK-2) C-Reactive Protein Total Protein Albumin Troponin T HDL Cholesterol Arterial Blood Glucose Urine WBC (Auto) Urine Creatinine Urine Total Protein Coronavirus (PCR) Crossmatch 07/05/20 07/05/20 07/06/20 23:13 23:43 13:20 WBC RBC Hgb Hct MCHC RDW Lymph % (Auto) [place] % (Auto) Eos % (Auto) Lymph # [place] # Lymph # (Auto) [place] # (Auto) Seg Neutrophils % Seg Neuts % (Manual) Lymphocytes % (Manual) Seg Neutrophils # Seg Neutrophils # Man Lymphocytes # (Manual) Monocytes % (Manual) Eosinophils % (Manual) Monocytes # (Manual) Eosinophils # (Manual) D-Dimer Heparin Anti-Xa Level ABG pH POC ABG pCO2 POC ABG pO2 ABG pO2 ABG HCO3 ABG O2 Saturation ABG Base Excess ABG Hemoglobin ABG Oxyhemoglobin VBG pH ABG Sodium ABG Potassium ABG Glucose Oxyhemoglobin Sodium Potassium Chloride Carbon Dioxide 20 L BUN 80 H Creatinine 2.4 H D Glucose 124 H POC Glucose 121 H Lactic Acid Calcium 7.6 L Ferritin AST Alkaline Phosphatase Magnesium Lactate Dehydrogenase Total Creatine Kinase CK-MB (CK-2) C-Reactive Protein Total Protein Albumin Troponin T HDL Cholesterol Arterial Blood Glucose Urine WBC (Auto) Urine Creatinine 33.3 H Urine Total Protein Coronavirus (PCR) Crossmatch 07/06/20 07/06/20 07/07/20 14:48 17:28 00:12 WBC RBC Hgb Hct MCHC RDW Lymph % (Auto) [place] % (Auto) Eos % (Auto) Lymph # [place] # Lymph # (Auto) [place] # (Auto) Seg Neutrophils % Seg Neuts % (Manual) Lymphocytes % (Manual) Seg Neutrophils # Seg Neutrophils # Man Lymphocytes # (Manual) Monocytes % (Manual) Eosinophils % (Manual) Monocytes # (Manual) Eosinophils # (Manual) D-Dimer Heparin Anti-Xa Level ABG pH POC ABG pCO2 POC ABG pO2 ABG pO2 ABG HCO3 ABG O2 Saturation ABG Base Excess ABG Hemoglobin ABG Oxyhemoglobin VBG pH ABG Sodium ABG Potassium ABG Glucose Oxyhemoglobin Sodium 136 L Potassium 5.5 H Chloride Carbon Dioxide 19 L BUN 82 H Creatinine 2.5 H Glucose 113 H POC Glucose 133 H 154 H Lactic Acid Calcium 7.7 L Ferritin AST Alkaline Phosphatase Magnesium Lactate Dehydrogenase Total Creatine Kinase CK-MB (CK-2) C-Reactive Protein Total Protein Albumin Troponin T HDL Cholesterol Arterial Blood Glucose Urine WBC (Auto) Urine Creatinine Urine Total Protein Coronavirus (PCR) Crossmatch 07/07/20 07/07/20 07/07/20 04:15 04:15 05:31 WBC RBC 2.28 L Hgb 6.8 L Hct 20.7 L MCHC RDW 16.8 H Lymph % (Auto) [place] % (Auto) Eos % (Auto) Lymph # [place] # Lymph # (Auto) [place] # (Auto) Seg Neutrophils % Seg Neuts % (Manual) Lymphocytes % (Manual) 13.0 L Seg Neutrophils # Seg Neutrophils # Man Lymphocytes # (Manual) 1.0 L Monocytes % (Manual) 11.0 H Eosinophils % (Manual) Monocytes # (Manual) 0.9 H Eosinophils # (Manual) D-Dimer Heparin Anti-Xa Level ABG pH POC ABG pCO2 POC ABG pO2 ABG pO2 ABG HCO3 ABG O2 Saturation ABG Base Excess ABG Hemoglobin ABG Oxyhemoglobin VBG pH ABG Sodium ABG Potassium ABG Glucose Oxyhemoglobin Sodium Potassium Chloride Carbon Dioxide BUN Creatinine Glucose POC Glucose 135 H Lactic Acid Calcium Ferritin AST Alkaline Phosphatase Magnesium 2.50 H Lactate Dehydrogenase Total Creatine Kinase CK-MB (CK-2) C-Reactive Protein Total Protein Albumin Troponin T HDL Cholesterol Arterial Blood Glucose Urine WBC (Auto) Urine Creatinine Urine Total Protein Coronavirus (PCR) Crossmatch 07/07/20 07/07/20 07/07/20 12:31 13:22 17:55 WBC RBC Hgb Hct MCHC RDW Lymph % (Auto) [place] % (Auto) Eos % (Auto) Lymph # [place] # Lymph # (Auto) [place] # (Auto) Seg Neutrophils % Seg Neuts % (Manual) Lymphocytes % (Manual) Seg Neutrophils # Seg Neutrophils # Man Lymphocytes # (Manual) Monocytes % (Manual) Eosinophils % (Manual) Monocytes # (Manual) Eosinophils # (Manual) D-Dimer Heparin Anti-Xa Level ABG pH POC ABG pCO2 POC ABG pO2 ABG pO2 ABG HCO3 ABG O2 Saturation ABG Base Excess ABG Hemoglobin ABG Oxyhemoglobin VBG pH ABG Sodium ABG Potassium ABG Glucose Oxyhemoglobin Sodium Potassium 5.6 H Chloride Carbon Dioxide BUN 86 H Creatinine 2.9 H Glucose 127 H POC Glucose 131 H 136 H Lactic Acid Calcium 8.1 L Ferritin AST Alkaline Phosphatase Magnesium Lactate Dehydrogenase Total Creatine Kinase CK-MB (CK-2) C-Reactive Protein Total Protein Albumin Troponin T HDL Cholesterol Arterial Blood Glucose Urine WBC (Auto) Urine Creatinine Urine Total Protein Coronavirus (PCR) Crossmatch 07/07/20 07/08/20 07/08/20 23:33 04:14 04:14 WBC RBC 3.28 L Hgb 9.7 L Hct 28.9 L D MCHC RDW 16.4 H Lymph % (Auto) 10.3 L [place] % (Auto) 10.0 H Eos % (Auto) Lymph # [place] # Lymph # (Auto) 1.1 L [place] # (Auto) 1.1 H Seg Neutrophils % 77.2 H Seg Neuts % (Manual) Lymphocytes % (Manual) Seg Neutrophils # 8.2 H Seg Neutrophils # Man Lymphocytes # (Manual) Monocytes % (Manual) Eosinophils % (Manual) Monocytes # (Manual) Eosinophils # (Manual) D-Dimer Heparin Anti-Xa Level ABG pH POC ABG pCO2 POC ABG pO2 ABG pO2 ABG HCO3 ABG O2 Saturation ABG Base Excess ABG Hemoglobin ABG Oxyhemoglobin VBG pH ABG Sodium ABG Potassium ABG Glucose Oxyhemoglobin Sodium 136 L Potassium Chloride Carbon Dioxide BUN 84 H Creatinine 2.8 H Glucose 109 H POC Glucose 159 H Lactic Acid Calcium 8.1 L Ferritin AST Alkaline Phosphatase Magnesium 2.50 H Lactate Dehydrogenase Total Creatine Kinase CK-MB (CK-2) C-Reactive Protein Total Protein Albumin Troponin T HDL Cholesterol Arterial Blood Glucose Urine WBC (Auto) Urine Creatinine Urine Total Protein Coronavirus (PCR) Crossmatch 07/08/20 07/08/20 07/08/20 12:10 18:10 23:50 WBC RBC Hgb Hct MCHC RDW Lymph % (Auto) [place] % (Auto) Eos % (Auto) Lymph # [place] # Lymph # (Auto) [place] # (Auto) Seg Neutrophils % Seg Neuts % (Manual) Lymphocytes % (Manual) Seg Neutrophils # Seg Neutrophils # Man Lymphocytes # (Manual) Monocytes % (Manual) Eosinophils % (Manual) Monocytes # (Manual) Eosinophils # (Manual) D-Dimer Heparin Anti-Xa Level ABG pH POC ABG pCO2 POC ABG pO2 ABG pO2 ABG HCO3 ABG O2 Saturation ABG Base Excess ABG Hemoglobin ABG Oxyhemoglobin VBG pH ABG Sodium ABG Potassium ABG Glucose Oxyhemoglobin Sodium Potassium Chloride Carbon Dioxide BUN Creatinine Glucose POC Glucose 108 H 125 H 141 H Lactic Acid Calcium Ferritin AST Alkaline Phosphatase Magnesium Lactate Dehydrogenase Total Creatine Kinase CK-MB (CK-2) C-Reactive Protein Total Protein Albumin Troponin T HDL Cholesterol Arterial Blood Glucose Urine WBC (Auto) Urine Creatinine Urine Total Protein Coronavirus (PCR) Crossmatch 07/09/20 07/09/20 07/09/20 05:39 11:57 17:56 WBC RBC Hgb Hct MCHC RDW Lymph % (Auto) [place] % (Auto) Eos % (Auto) Lymph # [place] # Lymph # (Auto) [place] # (Auto) Seg Neutrophils % Seg Neuts % (Manual) Lymphocytes % (Manual) Seg Neutrophils # Seg Neutrophils # Man Lymphocytes # (Manual) Monocytes % (Manual) Eosinophils % (Manual) Monocytes # (Manual) Eosinophils # (Manual) D-Dimer Heparin Anti-Xa Level ABG pH POC ABG pCO2 POC ABG pO2 ABG pO2 ABG HCO3 ABG O2 Saturation ABG Base Excess ABG Hemoglobin ABG Oxyhemoglobin VBG pH ABG Sodium ABG Potassium ABG Glucose Oxyhemoglobin Sodium Potassium Chloride Carbon Dioxide BUN Creatinine Glucose POC Glucose 121 H 123 H 119 H Lactic Acid Calcium Ferritin AST Alkaline Phosphatase Magnesium Lactate Dehydrogenase Total Creatine Kinase CK-MB (CK-2) C-Reactive Protein Total Protein Albumin Troponin T HDL Cholesterol Arterial Blood Glucose Urine WBC (Auto) Urine Creatinine Urine Total Protein Coronavirus (PCR) Crossmatch 07/10/20 07/10/20 07/10/20 00:29 05:50 10:41 WBC RBC 3.11 L Hgb 9.2 L Hct 27.6 L MCHC RDW 16.6 H Lymph % (Auto) [place] % (Auto) Eos % (Auto) Lymph # [place] # Lymph # (Auto) [place] # (Auto) Seg Neutrophils % Seg Neuts % (Manual) 78.0 H Lymphocytes % (Manual) 11.0 L Seg Neutrophils # Seg Neutrophils # Man Lymphocytes # (Manual) 1.0 L Monocytes % (Manual) Eosinophils % (Manual) Monocytes # (Manual) Eosinophils # (Manual) D-Dimer Heparin Anti-Xa Level ABG pH POC ABG pCO2 POC ABG pO2 ABG pO2 ABG HCO3 ABG O2 Saturation ABG Base Excess ABG Hemoglobin ABG Oxyhemoglobin VBG pH ABG Sodium ABG Potassium ABG Glucose Oxyhemoglobin Sodium Potassium Chloride Carbon Dioxide BUN Creatinine Glucose POC Glucose 122 H 124 H Lactic Acid Calcium Ferritin AST Alkaline Phosphatase Magnesium Lactate Dehydrogenase Total Creatine Kinase CK-MB (CK-2) C-Reactive Protein Total Protein Albumin Troponin T HDL Cholesterol Arterial Blood Glucose Urine WBC (Auto) Urine Creatinine Urine Total Protein Coronavirus (PCR) Crossmatch 07/10/20 07/10/20 07/10/20 10:41 12:25 18:10 WBC RBC Hgb Hct MCHC RDW Lymph % (Auto) [place] % (Auto) Eos % (Auto) Lymph # [place] # Lymph # (Auto) [place] # (Auto) Seg Neutrophils % Seg Neuts % (Manual) Lymphocytes % (Manual) Seg Neutrophils # Seg Neutrophils # Man Lymphocytes # (Manual) Monocytes % (Manual) Eosinophils % (Manual) Monocytes # (Manual) Eosinophils # (Manual) D-Dimer Heparin Anti-Xa Level ABG pH POC ABG pCO2 POC ABG pO2 ABG pO2 ABG HCO3 ABG O2 Saturation ABG Base Excess ABG Hemoglobin ABG Oxyhemoglobin VBG pH ABG Sodium ABG Potassium ABG Glucose Oxyhemoglobin Sodium Potassium Chloride Carbon Dioxide BUN 85 H Creatinine 2.5 H Glucose 133 H POC Glucose 131 H 134 H Lactic Acid Calcium Ferritin AST Alkaline Phosphatase 131 H Magnesium Lactate Dehydrogenase Total Creatine Kinase CK-MB (CK-2) C-Reactive Protein Total Protein 5.2 L Albumin 1.6 L Troponin T HDL Cholesterol Arterial Blood Glucose Urine WBC (Auto) Urine Creatinine Urine Total Protein Coronavirus (PCR) Crossmatch 07/11/20 07/11/20 07/11/20 00:28 05:57 12:14 WBC RBC Hgb Hct MCHC RDW Lymph % (Auto) [place] % (Auto) Eos % (Auto) Lymph # [place] # Lymph # (Auto) [place] # (Auto) Seg Neutrophils % Seg Neuts % (Manual) Lymphocytes % (Manual) Seg Neutrophils # Seg Neutrophils # Man Lymphocytes # (Manual) Monocytes % (Manual) Eosinophils % (Manual) Monocytes # (Manual) Eosinophils # (Manual) D-Dimer Heparin Anti-Xa Level ABG pH POC ABG pCO2 POC ABG pO2 ABG pO2 ABG HCO3 ABG O2 Saturation ABG Base Excess ABG Hemoglobin ABG Oxyhemoglobin VBG pH ABG Sodium ABG Potassium ABG Glucose Oxyhemoglobin Sodium Potassium Chloride Carbon Dioxide BUN Creatinine Glucose POC Glucose 140 H 148 H 147 H Lactic Acid Calcium Ferritin AST Alkaline Phosphatase Magnesium Lactate Dehydrogenase Total Creatine Kinase CK-MB (CK-2) C-Reactive Protein Total Protein Albumin Troponin T HDL Cholesterol Arterial Blood Glucose Urine WBC (Auto) Urine Creatinine Urine Total Protein Coronavirus (PCR) Crossmatch 07/11/20 07/11/20 07/12/20 17:28 23:49 05:14 WBC RBC 2.78 L Hgb 8.5 L Hct 25.3 L MCHC RDW 16.7 H Lymph % (Auto) [place] % (Auto) Eos % (Auto) Lymph # [place] # Lymph # (Auto) [place] # (Auto) Seg Neutrophils % Seg Neuts % (Manual) 81.0 H Lymphocytes % (Manual) 6.0 L Seg Neutrophils # Seg Neutrophils # Man Lymphocytes # (Manual) 0.6 L Monocytes % (Manual) 8.0 H Eosinophils % (Manual) Monocytes # (Manual) Eosinophils # (Manual) D-Dimer Heparin Anti-Xa Level ABG pH POC ABG pCO2 POC ABG pO2 ABG pO2 ABG HCO3 ABG O2 Saturation ABG Base Excess ABG Hemoglobin ABG Oxyhemoglobin VBG pH ABG Sodium ABG Potassium ABG Glucose Oxyhemoglobin Sodium Potassium Chloride Carbon Dioxide BUN Creatinine Glucose POC Glucose 175 H 114 H Lactic Acid Calcium Ferritin AST Alkaline Phosphatase Magnesium Lactate Dehydrogenase Total Creatine Kinase CK-MB (CK-2) C-Reactive Protein Total Protein Albumin Troponin T HDL Cholesterol Arterial Blood Glucose Urine WBC (Auto) Urine Creatinine Urine Total Protein Coronavirus (PCR) Crossmatch 07/12/20 07/12/20 07/12/20 05:14 05:44 11:32 WBC RBC Hgb Hct MCHC RDW Lymph % (Auto) [place] % (Auto) Eos % (Auto) Lymph # [place] # Lymph # (Auto) [place] # (Auto) Seg Neutrophils % Seg Neuts % (Manual) Lymphocytes % (Manual) Seg Neutrophils # Seg Neutrophils # Man Lymphocytes # (Manual) Monocytes % (Manual) Eosinophils % (Manual) Monocytes # (Manual) Eosinophils # (Manual) D-Dimer Heparin Anti-Xa Level ABG pH POC ABG pCO2 POC ABG pO2 ABG pO2 ABG HCO3 ABG O2 Saturation ABG Base Excess ABG Hemoglobin ABG Oxyhemoglobin VBG pH ABG Sodium ABG Potassium ABG Glucose Oxyhemoglobin Sodium Potassium Chloride Carbon Dioxide BUN 79 H Creatinine 2.2 H Glucose 131 H POC Glucose 116 H 132 H Lactic Acid Calcium Ferritin AST Alkaline Phosphatase Magnesium Lactate Dehydrogenase Total Creatine Kinase CK-MB (CK-2) C-Reactive Protein Total Protein Albumin Troponin T HDL Cholesterol Arterial Blood Glucose Urine WBC (Auto) Urine Creatinine Urine Total Protein Coronavirus (PCR) Crossmatch 07/12/20 07/13/20 07/13/20 17:53 00:18 04:53 WBC RBC 2.86 L Hgb 8.4 L Hct 25.7 L MCHC RDW 16.8 H Lymph % (Auto) [place] % (Auto) Eos % (Auto) Lymph # [place] # Lymph # (Auto) [place] # (Auto) Seg Neutrophils % Seg Neuts % (Manual) 84.0 H Lymphocytes % (Manual) 7.0 L Seg Neutrophils # Seg Neutrophils # Man Lymphocytes # (Manual) 0.6 L Monocytes % (Manual) Eosinophils % (Manual) Monocytes # (Manual) Eosinophils # (Manual) D-Dimer Heparin Anti-Xa Level ABG pH POC ABG pCO2 POC ABG pO2 ABG pO2 ABG HCO3 ABG O2 Saturation ABG Base Excess ABG Hemoglobin ABG Oxyhemoglobin VBG pH ABG Sodium ABG Potassium ABG Glucose Oxyhemoglobin Sodium Potassium Chloride Carbon Dioxide BUN Creatinine Glucose POC Glucose 155 H 162 H Lactic Acid Calcium Ferritin AST Alkaline Phosphatase Magnesium Lactate Dehydrogenase Total Creatine Kinase CK-MB (CK-2) C-Reactive Protein Total Protein Albumin Troponin T HDL Cholesterol Arterial Blood Glucose Urine WBC (Auto) Urine Creatinine Urine Total Protein Coronavirus (PCR) Crossmatch 07/13/20 07/13/20 07/13/20 04:53 06:14 12:50 WBC RBC Hgb Hct MCHC RDW Lymph % (Auto) [place] % (Auto) Eos % (Auto) Lymph # [place] # Lymph # (Auto) [place] # (Auto) Seg Neutrophils % Seg Neuts % (Manual) Lymphocytes % (Manual) Seg Neutrophils # Seg Neutrophils # Man Lymphocytes # (Manual) Monocytes % (Manual) Eosinophils % (Manual) Monocytes # (Manual) Eosinophils # (Manual) D-Dimer Heparin Anti-Xa Level ABG pH POC ABG pCO2 POC ABG pO2 ABG pO2 ABG HCO3 ABG O2 Saturation ABG Base Excess ABG Hemoglobin ABG Oxyhemoglobin VBG pH ABG Sodium ABG Potassium ABG Glucose Oxyhemoglobin Sodium 136 L Potassium Chloride Carbon Dioxide BUN 78 H Creatinine 2.0 H Glucose 130 H POC Glucose 141 H 146 H Lactic Acid Calcium Ferritin AST Alkaline Phosphatase Magnesium Lactate Dehydrogenase Total Creatine Kinase CK-MB (CK-2) C-Reactive Protein Total Protein Albumin Troponin T HDL Cholesterol Arterial Blood Glucose Urine WBC (Auto) Urine Creatinine Urine Total Protein Coronavirus (PCR) Crossmatch 07/13/20 07/14/20 07/14/20 18:27 00:22 05:43 WBC RBC Hgb Hct MCHC RDW Lymph % (Auto) [place] % (Auto) Eos % (Auto) Lymph # [place] # Lymph # (Auto) [place] # (Auto) Seg Neutrophils % Seg Neuts % (Manual) Lymphocytes % (Manual) Seg Neutrophils # Seg Neutrophils # Man Lymphocytes # (Manual) Monocytes % (Manual) Eosinophils % (Manual) Monocytes # (Manual) Eosinophils # (Manual) D-Dimer Heparin Anti-Xa Level ABG pH POC ABG pCO2 POC ABG pO2 ABG pO2 ABG HCO3 ABG O2 Saturation ABG Base Excess ABG Hemoglobin ABG Oxyhemoglobin VBG pH ABG Sodium ABG Potassium ABG Glucose Oxyhemoglobin Sodium Potassium Chloride Carbon Dioxide BUN Creatinine Glucose POC Glucose 149 H 157 H 169 H Lactic Acid Calcium Ferritin AST Alkaline Phosphatase Magnesium Lactate Dehydrogenase Total Creatine Kinase CK-MB (CK-2) C-Reactive Protein Total Protein Albumin Troponin T HDL Cholesterol Arterial Blood Glucose Urine WBC (Auto) Urine Creatinine Urine Total Protein Coronavirus (PCR) Crossmatch 07/14/20 07/14/20 07/14/20 08:04 12:12 17:23 WBC RBC Hgb Hct MCHC RDW Lymph % (Auto) [place] % (Auto) Eos % (Auto) Lymph # [place] # Lymph # (Auto) [place] # (Auto) Seg Neutrophils % Seg Neuts % (Manual) Lymphocytes % (Manual) Seg Neutrophils # Seg Neutrophils # Man Lymphocytes # (Manual) Monocytes % (Manual) Eosinophils % (Manual) Monocytes # (Manual) Eosinophils # (Manual) D-Dimer Heparin Anti-Xa Level ABG pH POC ABG pCO2 POC ABG pO2 ABG pO2 ABG HCO3 ABG O2 Saturation ABG Base Excess ABG Hemoglobin ABG Oxyhemoglobin VBG pH ABG Sodium ABG Potassium ABG Glucose Oxyhemoglobin Sodium Potassium Chloride Carbon Dioxide BUN Creatinine Glucose POC Glucose 185 H 138 H Lactic Acid Calcium Ferritin AST Alkaline Phosphatase Magnesium Lactate Dehydrogenase Total Creatine Kinase CK-MB (CK-2) C-Reactive Protein Total Protein Albumin Troponin T HDL Cholesterol Arterial Blood Glucose Urine WBC (Auto) Urine Creatinine Urine Total Protein Coronavirus (PCR) Positive A Crossmatch 07/15/20 07/15/20 07/15/20 00:04 06:06 12:00 WBC RBC Hgb Hct MCHC RDW Lymph % (Auto) [place] % (Auto) Eos % (Auto) Lymph # [place] # Lymph # (Auto) [place] # (Auto) Seg Neutrophils % Seg Neuts % (Manual) Lymphocytes % (Manual) Seg Neutrophils # Seg Neutrophils # Man Lymphocytes # (Manual) Monocytes % (Manual) Eosinophils % (Manual) Monocytes # (Manual) Eosinophils # (Manual) D-Dimer Heparin Anti-Xa Level ABG pH POC ABG pCO2 POC ABG pO2 ABG pO2 ABG HCO3 ABG O2 Saturation ABG Base Excess ABG Hemoglobin ABG Oxyhemoglobin VBG pH ABG Sodium ABG Potassium ABG Glucose Oxyhemoglobin Sodium Potassium Chloride Carbon Dioxide BUN Creatinine Glucose POC Glucose 121 H 140 H 137 H Lactic Acid Calcium Ferritin AST Alkaline Phosphatase Magnesium Lactate Dehydrogenase Total Creatine Kinase CK-MB (CK-2) C-Reactive Protein Total Protein Albumin Troponin T HDL Cholesterol Arterial Blood Glucose Urine WBC (Auto) Urine Creatinine Urine Total Protein Coronavirus (PCR) Crossmatch 07/15/20 07/15/20 07/16/20 17:53 23:53 05:26 WBC RBC Hgb Hct MCHC RDW Lymph % (Auto) [place] % (Auto) Eos % (Auto) Lymph # [place] # Lymph # (Auto) [place] # (Auto) Seg Neutrophils % Seg Neuts % (Manual) Lymphocytes % (Manual) Seg Neutrophils # Seg Neutrophils # Man Lymphocytes # (Manual) Monocytes % (Manual) Eosinophils % (Manual) Monocytes # (Manual) Eosinophils # (Manual) D-Dimer Heparin Anti-Xa Level ABG pH POC ABG pCO2 POC ABG pO2 ABG pO2 ABG HCO3 ABG O2 Saturation ABG Base Excess ABG Hemoglobin ABG Oxyhemoglobin VBG pH ABG Sodium ABG Potassium ABG Glucose Oxyhemoglobin Sodium Potassium Chloride Carbon Dioxide BUN Creatinine Glucose POC Glucose 161 H 156 H 152 H Lactic Acid Calcium Ferritin AST Alkaline Phosphatase Magnesium Lactate Dehydrogenase Total Creatine Kinase CK-MB (CK-2) C-Reactive Protein Total Protein Albumin Troponin T HDL Cholesterol Arterial Blood Glucose Urine WBC (Auto) Urine Creatinine Urine Total Protein Coronavirus (PCR) Crossmatch 07/16/20 07/17/20 07/17/20 17:44 00:07 12:06 WBC RBC Hgb Hct MCHC RDW Lymph % (Auto) [place] % (Auto) Eos % (Auto) Lymph # [place] # Lymph # (Auto) [place] # (Auto) Seg Neutrophils % Seg Neuts % (Manual) Lymphocytes % (Manual) Seg Neutrophils # Seg Neutrophils # Man Lymphocytes # (Manual) Monocytes % (Manual) Eosinophils % (Manual) Monocytes # (Manual) Eosinophils # (Manual) D-Dimer Heparin Anti-Xa Level ABG pH POC ABG pCO2 POC ABG pO2 ABG pO2 ABG HCO3 ABG O2 Saturation ABG Base Excess ABG Hemoglobin ABG Oxyhemoglobin VBG pH ABG Sodium ABG Potassium ABG Glucose Oxyhemoglobin Sodium Potassium Chloride Carbon Dioxide BUN Creatinine Glucose POC Glucose 126 H 189 H 155 H Lactic Acid Calcium Ferritin AST Alkaline Phosphatase Magnesium Lactate Dehydrogenase Total Creatine Kinase CK-MB (CK-2) C-Reactive Protein Total Protein Albumin Troponin T HDL Cholesterol Arterial Blood Glucose Urine WBC (Auto) Urine Creatinine Urine Total Protein Coronavirus (PCR) Crossmatch 07/17/20 07/17/20 07/18/20 18:20 23:25 04:24 WBC RBC Hgb Hct MCHC RDW Lymph % (Auto) [place] % (Auto) Eos % (Auto) Lymph # [place] # Lymph # (Auto) [place] # (Auto) Seg Neutrophils % Seg Neuts % (Manual) Lymphocytes % (Manual) Seg Neutrophils # Seg Neutrophils # Man Lymphocytes # (Manual) Monocytes % (Manual) Eosinophils % (Manual) Monocytes # (Manual) Eosinophils # (Manual) D-Dimer Heparin Anti-Xa Level ABG pH POC ABG pCO2 POC ABG pO2 ABG pO2 ABG HCO3 ABG O2 Saturation ABG Base Excess ABG Hemoglobin 8.8 L ABG Oxyhemoglobin VBG pH ABG Sodium 131.6 L ABG Potassium 4.9 H ABG Glucose 131 H Oxyhemoglobin Sodium Potassium Chloride Carbon Dioxide BUN Creatinine Glucose POC Glucose 206 H 161 H Lactic Acid Calcium Ferritin AST Alkaline Phosphatase Magnesium Lactate Dehydrogenase Total Creatine Kinase CK-MB (CK-2) C-Reactive Protein Total Protein Albumin Troponin T HDL Cholesterol Arterial Blood Glucose 131 H Urine WBC (Auto) Urine Creatinine Urine Total Protein Coronavirus (PCR) Crossmatch 07/18/20 07/18/20 07/18/20 05:16 11:53 18:11 WBC RBC Hgb Hct MCHC RDW Lymph % (Auto) [place] % (Auto) Eos % (Auto) Lymph # [place] # Lymph # (Auto) [place] # (Auto) Seg Neutrophils % Seg Neuts % (Manual) Lymphocytes % (Manual) Seg Neutrophils # Seg Neutrophils # Man Lymphocytes # (Manual) Monocytes % (Manual) Eosinophils % (Manual) Monocytes # (Manual) Eosinophils # (Manual) D-Dimer Heparin Anti-Xa Level ABG pH POC ABG pCO2 POC ABG pO2 ABG pO2 ABG HCO3 ABG O2 Saturation ABG Base Excess ABG Hemoglobin ABG Oxyhemoglobin VBG pH ABG Sodium ABG Potassium ABG Glucose Oxyhemoglobin Sodium Potassium Chloride Carbon Dioxide BUN Creatinine Glucose POC Glucose 140 H 176 H 143 H Lactic Acid Calcium Ferritin AST Alkaline Phosphatase Magnesium Lactate Dehydrogenase Total Creatine Kinase CK-MB (CK-2) C-Reactive Protein Total Protein Albumin Troponin T HDL Cholesterol Arterial Blood Glucose Urine WBC (Auto) Urine Creatinine Urine Total Protein Coronavirus (PCR) Crossmatch 07/18/20 07/19/20 07/19/20 23:51 01:05 01:05 WBC RBC 2.76 L Hgb 7.9 L Hct 24.5 L MCHC RDW 17.6 H Lymph % (Auto) 11.6 L [place] % (Auto) 13.1 H Eos % (Auto) Lymph # [place] # Lymph # (Auto) 1.0 L [place] # (Auto) 1.1 H Seg Neutrophils % 70.9 H Seg Neuts % (Manual) Lymphocytes % (Manual) Seg Neutrophils # Seg Neutrophils # Man Lymphocytes # (Manual) Monocytes % (Manual) Eosinophils % (Manual) Monocytes # (Manual) Eosinophils # (Manual) D-Dimer Heparin Anti-Xa Level ABG pH POC ABG pCO2 POC ABG pO2 ABG pO2 ABG HCO3 ABG O2 Saturation ABG Base Excess ABG Hemoglobin ABG Oxyhemoglobin VBG pH ABG Sodium ABG Potassium ABG Glucose Oxyhemoglobin Sodium Potassium Chloride Carbon Dioxide BUN 86 H Creatinine 1.7 H Glucose 149 H POC Glucose 159 H Lactic Acid Calcium Ferritin AST Alkaline Phosphatase Magnesium Lactate Dehydrogenase Total Creatine Kinase CK-MB (CK-2) C-Reactive Protein Total Protein Albumin Troponin T HDL Cholesterol Arterial Blood Glucose Urine WBC (Auto) Urine Creatinine Urine Total Protein Coronavirus (PCR) Crossmatch 07/19/20 05:54 WBC RBC Hgb Hct MCHC RDW Lymph % (Auto) [place] % (Auto) Eos % (Auto) Lymph # [place] # Lymph # (Auto) [place] # (Auto) Seg Neutrophils % Seg Neuts % (Manual) Lymphocytes % (Manual) Seg Neutrophils # Seg Neutrophils # Man Lymphocytes # (Manual) Monocytes % (Manual) Eosinophils % (Manual) Monocytes # (Manual) Eosinophils # (Manual) D-Dimer Heparin Anti-Xa Level ABG pH POC ABG pCO2 POC ABG pO2 ABG pO2 ABG HCO3 ABG O2 Saturation ABG Base Excess ABG Hemoglobin ABG Oxyhemoglobin VBG pH ABG Sodium ABG Potassium ABG Glucose Oxyhemoglobin Sodium Potassium Chloride Carbon Dioxide BUN Creatinine Glucose POC Glucose 176 H Lactic Acid Calcium Ferritin AST Alkaline Phosphatase Magnesium Lactate Dehydrogenase Total Creatine Kinase CK-MB (CK-2) C-Reactive Protein Total Protein Albumin Troponin T HDL Cholesterol Arterial Blood Glucose Urine WBC (Auto) Urine Creatinine Urine Total Protein Coronavirus (PCR) Crossmatch Allied health notes reviewed: nursing
[2020-07-19] MEDS: INSULIN GLARGINE 100 UNITS/ML SUB-Q SCH (22:03)
[2020-07-20] MEDS: INSULIN LISPRO 100 UNIT/ML VIAL 3 mL SUB-Q SCH ×4 (00:06→18:15)
[2020-07-20] MEDS: cloNIDine 0.2 MG TAB PO SCH ×4 (02:10→18:15)
[2020-07-20] MEDS: HEPARIN 5,000 UNIT/1 ML VIAL SUB-Q SCH ×3 (05:42→21:37)
[2020-07-20] MEDS: MODAFINIL 100 MG TAB PO SCH (10:49)
[2020-07-20] MEDS: carvediloL 12.5 MG TAB PO SCH (10:49)
[2020-07-20] MEDS: GLYCOPYRROLATE 2 MG TAB PO SCH ×3 (11:13→20:18)
[2020-07-20] MEDS: hydrALAZINE 100 MG TAB PO SCH ×3 (11:14→20:18)
[2020-07-20] MEDS: LANSOPRAZOLE 30 MG SOLUTAB FEEDTUBE SCH ×2 (11:14→21:39)
[2020-07-20] MEDS: amLODIPine 10 MG TAB PO SCH (11:14)
[2020-07-20] MEDS: carvediloL 25 MG TAB PO SCH ×2 (11:15→21:38)
[2020-07-20] MEDS: SENNOSIDES ORAL LIQD 8.8 MG/5 ML ORAL LIQD FEEDTUBE SCH ×2 (11:15→21:47)
--- NOTE | 2020-07-20 12:20 | Progress Note ---
Assessment and Plan Cardiopulmoanry arrest 06/26/2020 with ROSC Acute hypoxemic respiratory failure , extubated now re-intubated Anemia s/p PRBC Severe COVID infection Multifocal pneumonia Morbid obesity Acute toxic metabolic encephalopathy AVANI secondary to COVID/vasomotor nephropathy Bilateral pulmonary edema. Bilateral pleural effusions. History of congestive heart failure. History of pulmonary hypertension. History of hypertension. Diabetes. Obesity hypoventilation syndrome. Oropharyngeal dysphagia. Adjust blood pressure medications- increased Clonidine dosing, and Carvedilol Re-ordered EEG Continue to trend temperature curve and WCC Continue daily SBTs as tolerated, her mental status precludes liberation from MVS Continue to avoid nephrotoxins, closely monitor renal function, dose all medications for renal function COVID positive, trach /PEG on hold Supportive transfusions as indicated CXR and ABG as clinically indicated - VAP bundle addressed -Aspiration precautions, HOB >40 -lung protective strategies-ARDS. net - continue bronchodilators with pulmonary hygiene per RT - wean per pulmonary driven protocols otherwise - continue to avoid benzodiazepines, reduce the possibility of delirium - prn analgesia per CPOT score - Continue to wean supplemental oxygen for target O2 sats > 92% -Continue to hold sedation, if needed intermittent dosing - conservative fluid management measures as tolerated by hemodynamics and renal function - Bronchodilators with pulmonary hygiene per RT - Accuchecks with glycemic control per SSI (While critically ill target blood glucose of 140-180 mg/dL; avoid hypoglycemia) - Maintenance of sleep-wake cycle, avoid delirium - Aspiration precautions, HOB >40 - Stress ulcer prophylaxis -Famotidine - Mobility protocol, off loading and skin assessment for pressure ulcer prevention - Supportive transfusions as indicated to keep HgB >7g/dL COVID SPECIFIC INTERVENTIONS -Airborne, contact isolation for COVID per facility protocols - s/p Remdesivir -IV steroids-Dexamethasone -Trend d-dimer,and other inflammatory markers per facility protocol -Convalescent plasma therapy per facility protocol -Continue all supportive care Discussed with the ICU team-RT,RN, Clincal pharmacist and case management Life threatening condition- Cardiopulmonary arrest with ROSC, Sepsis ;COVID 19 acute hypoxemic respiratory failure on MVS Mortality/Morbidity- High Complexity of medical decision making- High CONDITION: CRITICAL PROGNOSIS: GUARDED CODE STATUS: FULL CODE The high probability of a clinically significant, sudden or life-threatening deterioration of the [respiratory & neurology, renal ] system(s) required my full and direct attention, intervention and personal management. The aggregate critical care time was [32] minutes without overlap. Time includes spent on; [x] Data Review and interpretation [x] Patient assessment and monitoring of vital signs [x] Documentation [x] Medication orders and management Subjective Date of service: 07/20/20 Principal diagnosis: Ac hypoxemic resp failure; COVID-19; pneumonia; CHF; Pulm HTN; OHS; DM II Interval history: Patient is seen today for: Ac hypoxemic resp failure s/p Cardiopulmonary arrest with ROSC; Coronavirus-19 infection; pneumonia; Pulmonary edema; Bilateral pleural effusions; CHF; Morbid obesity; pulmonary hypertension; OHS; DM II Seen and examined at bedside; 24hour events reviewed; nursing and respiratory care staff consulted; Vitals, labs,medications, chart reviewed. Remains on MVS, no fevers, Did not tolerate PS trials today Mental status changes persist, but grimaces to pain and will open her eyes with sternal rub Tolerating tube feedings, No adverse overnight events 07/19/2020 Trach on hold secondary to recent positive COVID testing Neurology prognostication unable to be completed as an EEG was apparently cancelled secondary to COVID status, patient's habitus is such that she could not fit into the MRI machine No new issues otherwise, placed on PSV 10 and she is tolerating it No fevers, mental status changes persist, no adverse overnight events reported by RN or RT 07/20/2020 -Persistently elevated blood pressure. Continues to tolerate PSV trials -Mental status changes persist -Will re-order EEG today Objective Vital Signs - 12hr 07/20/20 07/20/20 07/20/20 00:30 01:00 01:30 Temperature Pulse Rate 74 78 73 Pulse Rate [ From Monitor] Respiratory 17 16 16 Rate Blood Pressure 166/68 169/78 170/64 O2 Sat by Pulse 95 92 95 Oximetry 07/20/20 07/20/20 07/20/20 02:00 02:10 02:30 Temperature Pulse Rate 73 75 74 Pulse Rate [ From Monitor] Respiratory 17 18 Rate Blood Pressure 171/65 171/65 164/71 O2 Sat by Pulse 95 95 Oximetry 07/20/20 07/20/20 07/20/20 03:01 03:12 03:30 Temperature Pulse Rate 72 70 71 Pulse Rate [ From Monitor] Respiratory 17 17 Rate Blood Pressure 164/71 169/69 177/63 O2 Sat by Pulse 95 95 94 Oximetry 07/20/20 07/20/20 07/20/20 04:00 04:30 05:00 Temperature 98.4 F Pulse Rate 71 71 74 Pulse Rate [ 70 From Monitor] Respiratory 16 16 19 Rate Blood Pressure 184/74 179/76 182/77 O2 Sat by Pulse 95 95 95 Oximetry 07/20/20 07/20/20 07/20/20 05:30 05:43 06:00 Temperature Pulse Rate 72 72 68 Pulse Rate [ From Monitor] Respiratory 16 16 Rate Blood Pressure 190/81 190/81 175/78 O2 Sat by Pulse 93 93 Oximetry 07/20/20 07/20/20 07/20/20 06:30 07:00 07:30 Temperature Pulse Rate 70 67 67 Pulse Rate [ From Monitor] Respiratory 17 14 14 Rate Blood Pressure 183/78 177/66 182/76 O2 Sat by Pulse 93 93 94 Oximetry 07/20/20 07/20/20 07/20/20 08:00 08:30 09:00 Temperature 98.3 F Pulse Rate 67 69 66 Pulse Rate [ 67 From Monitor] Respiratory 17 17 13 Rate Blood Pressure 182/77 185/78 181/74 O2 Sat by Pulse 95 94 94 Oximetry 07/20/20 07/20/20 07/20/20 09:30 09:45 10:00 Temperature Pulse Rate 68 69 70 Pulse Rate [ From Monitor] Respiratory 17 18 Rate Blood Pressure 190/83 185/78 186/77 O2 Sat by Pulse 93 94 94 Oximetry 07/20/20 07/20/20 07/20/20 10:15 10:30 11:00 Temperature Pulse Rate 73 71 70 Pulse Rate [ From Monitor] Respiratory 23 22 19 Rate Blood Pressure 186/77 191/75 186/75 O2 Sat by Pulse 94 93 93 Oximetry 07/20/20 07/20/20 07/20/20 11:14 11:15 11:30 Temperature Pulse Rate 71 71 70 Pulse Rate [ From Monitor] Respiratory 19 Rate Blood Pressure 186/75 186/75 176/75 O2 Sat by Pulse 94 Oximetry Constitutional: appears uncomfortable, other (elderly looking obese female with mildly increased respiratory effort at rest on MVS) Eyes: non-icteric ENT: oropharynx dry, other (ETT 23-24 cm AYAN) Neck: supple, no lymphadenopathy, no JVD, other (large neck circumference) Effort: mildly labored Ascultation: Bilateral: clear, diminished breath sounds, rales, rhonchi Percussion: Bilateral: not dull Cardiovascular: regular rate and rhythm, other (S1,S2) Gastrointestinal: normoactive bowel sounds, soft, non-tender, non-distended Integumentary: normal Extremities: no cyanosis, pink and warm, pulses normal, no ischemia or petechiae, edema (trace) Neurologic: pupils equal and round, unable to assess, other (lethargic to obtunded) Psychiatric: other (unable to assess re: AMS) CBC and BMP: 07/19/20 01:05 07/19/20 01:05 ABG, PT/INR, D-dimer: ABG ABG pH 7.382 (7.320-7.450) 07/18/20 04:24 POC ABG pCO2 44.1 mmHg (32.0-48.0) 07/18/20 04:24 ABG pCO2 47.0 mm Hg 07/05/20 13:05 POC ABG pO2 86.8 mmHg (83-108) 07/18/20 04:24 ABG pO2 78.3 mm Hg (80.0-90.0) L 07/05/20 13:05 POC ABG HCO3 25.6 07/18/20 04:24 ABG O2 Saturation 96.1 % (95.0-99.0) 07/05/20 13:05 PT/INR, D-dimer PT 14.2 Sec. (12.2-14.9) 05/29/20 15:10 INR 1.08 (0.87-1.13) 05/29/20 15:10 D-Dimer 2310.15 ng/mlDDU (0-234) H 06/29/20 14:45 Abnormal lab findings: Abnormal Labs 05/28/20 05/28/20 05/28/20 13:29 13:47 13:47 WBC RBC Hgb Hct MCHC RDW 15.3 H Lymph % (Auto) [place] % (Auto) Eos % (Auto) Lymph # [place] # Lymph # (Auto) [place] # (Auto) Seg Neutrophils % Seg Neuts % (Manual) Lymphocytes % (Manual) Seg Neutrophils # Seg Neutrophils # Man Lymphocytes # (Manual) Monocytes % (Manual) Eosinophils % (Manual) Monocytes # (Manual) Eosinophils # (Manual) D-Dimer Heparin Anti-Xa Level ABG pH POC ABG pCO2 POC ABG pO2 ABG pO2 ABG HCO3 ABG O2 Saturation ABG Base Excess ABG Hemoglobin ABG Oxyhemoglobin VBG pH ABG Sodium ABG Potassium ABG Glucose Oxyhemoglobin Sodium Potassium 6.6 H* Chloride 109.2 H Carbon Dioxide 17 L BUN 29 H Creatinine 1.3 H Glucose 265 H POC Glucose 248 H Lactic Acid Calcium 8.1 L Ferritin AST 63 H Alkaline Phosphatase Magnesium Lactate Dehydrogenase Total Creatine Kinase 301 H CK-MB (CK-2) 4.3 H C-Reactive Protein Total Protein 5.4 L Albumin 2.6 L Troponin T HDL Cholesterol Arterial Blood Glucose Urine WBC (Auto) Urine Creatinine Urine Total Protein Coronavirus (PCR) Crossmatch 05/28/20 05/28/20 05/28/20 13:47 13:47 14:46 WBC RBC Hgb Hct MCHC RDW Lymph % (Auto) [place] % (Auto) Eos % (Auto) Lymph # [place] # Lymph # (Auto) [place] # (Auto) Seg Neutrophils % Seg Neuts % (Manual) Lymphocytes % (Manual) Seg Neutrophils # Seg Neutrophils # Man Lymphocytes # (Manual) Monocytes % (Manual) Eosinophils % (Manual) Monocytes # (Manual) Eosinophils # (Manual) D-Dimer Heparin Anti-Xa Level ABG pH POC ABG pCO2 POC ABG pO2 ABG pO2 ABG HCO3 ABG O2 Saturation ABG Base Excess ABG Hemoglobin ABG Oxyhemoglobin VBG pH 7.152 L* ABG Sodium ABG Potassium ABG Glucose Oxyhemoglobin Sodium Potassium 7.2 H* Chloride Carbon Dioxide BUN Creatinine Glucose POC Glucose Lactic Acid 3.40 H* Calcium Ferritin AST Alkaline Phosphatase Magnesium Lactate Dehydrogenase Total Creatine Kinase CK-MB (CK-2) C-Reactive Protein Total Protein Albumin Troponin T HDL Cholesterol Arterial Blood Glucose Urine WBC (Auto) Urine Creatinine Urine Total Protein Coronavirus (PCR) Crossmatch 05/28/20 05/28/20 05/28/20 15:33 15:33 15:51 WBC RBC Hgb Hct MCHC RDW Lymph % (Auto) [place] % (Auto) Eos % (Auto) Lymph # [place] # Lymph # (Auto) [place] # (Auto) Seg Neutrophils % Seg Neuts % (Manual) Lymphocytes % (Manual) Seg Neutrophils # Seg Neutrophils # Man Lymphocytes # (Manual) Monocytes % (Manual) Eosinophils % (Manual) Monocytes # (Manual) Eosinophils # (Manual) D-Dimer 8780.43 H Heparin Anti-Xa Level ABG pH 7.284 L POC ABG pCO2 POC ABG pO2 ABG pO2 273.0 H ABG HCO3 ABG O2 Saturation 99.4 H ABG Base Excess -6.1 L ABG Hemoglobin 17.2 H ABG Oxyhemoglobin VBG pH ABG Sodium ABG Potassium ABG Glucose Oxyhemoglobin Sodium Potassium Chloride Carbon Dioxide BUN Creatinine Glucose 152 H POC Glucose Lactic Acid Calcium Ferritin AST Alkaline Phosphatase Magnesium Lactate Dehydrogenase 365 H Total Creatine Kinase CK-MB (CK-2) C-Reactive Protein Total Protein Albumin Troponin T HDL Cholesterol Arterial Blood Glucose Urine WBC (Auto) Urine Creatinine Urine Total Protein Coronavirus (PCR) Crossmatch 05/28/20 05/28/20 05/28/20 16:30 20:41 23:20 WBC RBC Hgb Hct MCHC RDW Lymph % (Auto) [place] % (Auto) Eos % (Auto) Lymph # [place] # Lymph # (Auto) [place] # (Auto) Seg Neutrophils % Seg Neuts % (Manual) Lymphocytes % (Manual) Seg Neutrophils # Seg Neutrophils # Man Lymphocytes # (Manual) Monocytes % (Manual) Eosinophils % (Manual) Monocytes # (Manual) Eosinophils # (Manual) D-Dimer Heparin Anti-Xa Level ABG pH POC ABG pCO2 POC ABG pO2 ABG pO2 ABG HCO3 ABG O2 Saturation ABG Base Excess ABG Hemoglobin ABG Oxyhemoglobin VBG pH ABG Sodium ABG Potassium ABG Glucose Oxyhemoglobin Sodium Potassium Chloride Carbon Dioxide BUN Creatinine Glucose POC Glucose 225 H 224 H Lactic Acid Calcium Ferritin AST Alkaline Phosphatase Magnesium Lactate Dehydrogenase Total Creatine Kinase CK-MB (CK-2) C-Reactive Protein Total Protein Albumin Troponin T HDL Cholesterol Arterial Blood Glucose Urine WBC (Auto) 17.0 H Urine Creatinine Urine Total Protein Coronavirus (PCR) Crossmatch 05/28/20 05/29/20 05/29/20 Unknown 04:35 04:43 WBC RBC 3.48 L Hgb 9.8 L Hct 29.4 L MCHC RDW 16.0 H Lymph % (Auto) 7.4 L [place] % (Auto) Eos % (Auto) Lymph # 0.7 L [place] # Lymph # (Auto) [place] # (Auto) Seg Neutrophils % 89.1 H Seg Neuts % (Manual) Lymphocytes % (Manual) Seg Neutrophils # 8.1 H Seg Neutrophils # Man Lymphocytes # (Manual) Monocytes % (Manual) Eosinophils % (Manual) Monocytes # (Manual) Eosinophils # (Manual) D-Dimer Heparin Anti-Xa Level ABG pH POC ABG pCO2 POC ABG pO2 ABG pO2 ABG HCO3 19.3 L ABG O2 Saturation ABG Base Excess -4.5 L ABG Hemoglobin 9.7 L ABG Oxyhemoglobin VBG pH ABG Sodium ABG Potassium ABG Glucose Oxyhemoglobin Sodium Potassium Chloride Carbon Dioxide BUN Creatinine Glucose POC Glucose Lactic Acid Calcium Ferritin AST Alkaline Phosphatase Magnesium Lactate Dehydrogenase Total Creatine Kinase CK-MB (CK-2) C-Reactive Protein Total Protein Albumin Troponin T HDL Cholesterol Arterial Blood Glucose Urine WBC (Auto) Urine Creatinine Urine Total Protein Coronavirus (PCR) Positive A Crossmatch 05/29/20 05/29/20 05/29/20 04:43 15:10 17:17 WBC RBC Hgb 9.3 L Hct 28.7 L MCHC RDW Lymph % (Auto) [place] % (Auto) Eos % (Auto) Lymph # [place] # Lymph # (Auto) [place] # (Auto) Seg Neutrophils % Seg Neuts % (Manual) Lymphocytes % (Manual) Seg Neutrophils # Seg Neutrophils # Man Lymphocytes # (Manual) Monocytes % (Manual) Eosinophils % (Manual) Monocytes # (Manual) Eosinophils # (Manual) D-Dimer Heparin Anti-Xa Level ABG pH POC ABG pCO2 POC ABG pO2 ABG pO2 ABG HCO3 ABG O2 Saturation ABG Base Excess ABG Hemoglobin ABG Oxyhemoglobin VBG pH ABG Sodium ABG Potassium ABG Glucose Oxyhemoglobin Sodium Potassium Chloride 110.2 H Carbon Dioxide 18 L BUN 32 H Creatinine 1.4 H Glucose 180 H POC Glucose 147 H Lactic Acid Calcium Ferritin AST Alkaline Phosphatase Magnesium Lactate Dehydrogenase Total Creatine Kinase CK-MB (CK-2) C-Reactive Protein Total Protein Albumin Troponin T HDL Cholesterol Arterial Blood Glucose Urine WBC (Auto) Urine Creatinine Urine Total Protein Coronavirus (PCR) Crossmatch 05/30/20 05/30/20 05/30/20 00:08 00:12 04:15 WBC RBC Hgb Hct MCHC RDW Lymph % (Auto) [place] % (Auto) Eos % (Auto) Lymph # [place] # Lymph # (Auto) [place] # (Auto) Seg Neutrophils % Seg Neuts % (Manual) Lymphocytes % (Manual) Seg Neutrophils # Seg Neutrophils # Man Lymphocytes # (Manual) Monocytes % (Manual) Eosinophils % (Manual) Monocytes # (Manual) Eosinophils # (Manual) D-Dimer Heparin Anti-Xa Level 0.71 H ABG pH 7.460 H POC ABG pCO2 POC ABG pO2 ABG pO2 106.0 H ABG HCO3 18.9 L ABG O2 Saturation ABG Base Excess -4.4 L ABG Hemoglobin 6.8 L ABG Oxyhemoglobin VBG pH ABG Sodium ABG Potassium ABG Glucose Oxyhemoglobin Sodium Potassium Chloride Carbon Dioxide BUN Creatinine Glucose POC Glucose 195 H Lactic Acid Calcium Ferritin AST Alkaline Phosphatase Magnesium Lactate Dehydrogenase Total Creatine Kinase CK-MB (CK-2) C-Reactive Protein Total Protein Albumin Troponin T HDL Cholesterol Arterial Blood Glucose Urine WBC (Auto) Urine Creatinine Urine Total Protein Coronavirus (PCR) Crossmatch 05/30/20 05/30/20 05/30/20 06:07 08:37 12:33 WBC RBC Hgb Hct MCHC RDW Lymph % (Auto) [place] % (Auto) Eos % (Auto) Lymph # [place] # Lymph # (Auto) [place] # (Auto) Seg Neutrophils % Seg Neuts % (Manual) Lymphocytes % (Manual) Seg Neutrophils # Seg Neutrophils # Man Lymphocytes # (Manual) Monocytes % (Manual) Eosinophils % (Manual) Monocytes # (Manual) Eosinophils # (Manual) D-Dimer Heparin Anti-Xa Level 0.85 H ABG pH POC ABG pCO2 POC ABG pO2 ABG pO2 ABG HCO3 ABG O2 Saturation ABG Base Excess ABG Hemoglobin ABG Oxyhemoglobin VBG pH ABG Sodium ABG Potassium ABG Glucose Oxyhemoglobin Sodium Potassium Chloride Carbon Dioxide BUN Creatinine Glucose POC Glucose 182 H 187 H Lactic Acid Calcium Ferritin AST Alkaline Phosphatase Magnesium Lactate Dehydrogenase Total Creatine Kinase CK-MB (CK-2) C-Reactive Protein Total Protein Albumin Troponin T HDL Cholesterol Arterial Blood Glucose Urine WBC (Auto) Urine Creatinine Urine Total Protein Coronavirus (PCR) Crossmatch 05/30/20 05/30/20 05/30/20 15:58 17:57 23:36 WBC RBC Hgb Hct MCHC RDW Lymph % (Auto) [place] % (Auto) Eos % (Auto) Lymph # [place] # Lymph # (Auto) [place] # (Auto) Seg Neutrophils % Seg Neuts % (Manual) Lymphocytes % (Manual) Seg Neutrophils # Seg Neutrophils # Man Lymphocytes # (Manual) Monocytes % (Manual) Eosinophils % (Manual) Monocytes # (Manual) Eosinophils # (Manual) D-Dimer Heparin Anti-Xa Level 1.03 H ABG pH POC ABG pCO2 POC ABG pO2 ABG pO2 ABG HCO3 ABG O2 Saturation ABG Base Excess ABG Hemoglobin ABG Oxyhemoglobin VBG pH ABG Sodium ABG Potassium ABG Glucose Oxyhemoglobin Sodium Potassium Chloride Carbon Dioxide BUN Creatinine Glucose POC Glucose 208 H 185 H Lactic Acid Calcium Ferritin AST Alkaline Phosphatase Magnesium Lactate Dehydrogenase Total Creatine Kinase CK-MB (CK-2) C-Reactive Protein Total Protein Albumin Troponin T HDL Cholesterol Arterial Blood Glucose Urine WBC (Auto) Urine Creatinine Urine Total Protein Coronavirus (PCR) Crossmatch 05/31/20 05/31/20 05/31/20 02:16 03:55 06:16 WBC RBC Hgb 9.2 L Hct 27.5 L MCHC RDW Lymph % (Auto) [place] % (Auto) Eos % (Auto) Lymph # [place] # Lymph # (Auto) [place] # (Auto) Seg Neutrophils % Seg Neuts % (Manual) Lymphocytes % (Manual) Seg Neutrophils # Seg Neutrophils # Man Lymphocytes # (Manual) Monocytes % (Manual) Eosinophils % (Manual) Monocytes # (Manual) Eosinophils # (Manual) D-Dimer Heparin Anti-Xa Level ABG pH POC ABG pCO2 POC ABG pO2 ABG pO2 94.7 H ABG HCO3 18.6 L ABG O2 Saturation ABG Base Excess -5.5 L ABG Hemoglobin 7.9 L ABG Oxyhemoglobin VBG pH ABG Sodium ABG Potassium ABG Glucose Oxyhemoglobin Sodium Potassium Chloride Carbon Dioxide BUN Creatinine Glucose POC Glucose 160 H Lactic Acid Calcium Ferritin AST Alkaline Phosphatase Magnesium Lactate Dehydrogenase Total Creatine Kinase CK-MB (CK-2) C-Reactive Protein Total Protein Albumin Troponin T HDL Cholesterol Arterial Blood Glucose Urine WBC (Auto) Urine Creatinine Urine Total Protein Coronavirus (PCR) Crossmatch 05/31/20 05/31/20 05/31/20 12:20 13:03 18:13 WBC RBC Hgb Hct MCHC RDW Lymph % (Auto) [place] % (Auto) Eos % (Auto) Lymph # [place] # Lymph # (Auto) [place] # (Auto) Seg Neutrophils % Seg Neuts % (Manual) Lymphocytes % (Manual) Seg Neutrophils # Seg Neutrophils # Man Lymphocytes # (Manual) Monocytes % (Manual) Eosinophils % (Manual) Monocytes # (Manual) Eosinophils # (Manual) D-Dimer Heparin Anti-Xa Level ABG pH POC ABG pCO2 POC ABG pO2 ABG pO2 ABG HCO3 ABG O2 Saturation ABG Base Excess ABG Hemoglobin ABG Oxyhemoglobin VBG pH ABG Sodium ABG Potassium ABG Glucose Oxyhemoglobin Sodium Potassium Chloride Carbon Dioxide 18 L BUN 48 H Creatinine 1.6 H Glucose 115 H POC Glucose 128 H 159 H Lactic Acid Calcium 8.3 L Ferritin AST Alkaline Phosphatase Magnesium Lactate Dehydrogenase Total Creatine Kinase CK-MB (CK-2) C-Reactive Protein Total Protein 5.4 L Albumin 2.4 L Troponin T HDL Cholesterol Arterial Blood Glucose Urine WBC (Auto) Urine Creatinine Urine Total Protein Coronavirus (PCR) Crossmatch 05/31/20 06/01/20 06/01/20 23:51 04:00 05:48 WBC RBC Hgb Hct MCHC RDW Lymph % (Auto) [place] % (Auto) Eos % (Auto) Lymph # [place] # Lymph # (Auto) [place] # (Auto) Seg Neutrophils % Seg Neuts % (Manual) Lymphocytes % (Manual) Seg Neutrophils # Seg Neutrophils # Man Lymphocytes # (Manual) Monocytes % (Manual) Eosinophils % (Manual) Monocytes # (Manual) Eosinophils # (Manual) D-Dimer Heparin Anti-Xa Level ABG pH POC ABG pCO2 POC ABG pO2 ABG pO2 109.8 H ABG HCO3 18.8 L ABG O2 Saturation ABG Base Excess -5.9 L ABG Hemoglobin 7.8 L ABG Oxyhemoglobin VBG pH ABG Sodium ABG Potassium ABG Glucose Oxyhemoglobin Sodium Potassium Chloride Carbon Dioxide BUN Creatinine Glucose POC Glucose 171 H 133 H Lactic Acid Calcium Ferritin AST Alkaline Phosphatase Magnesium Lactate Dehydrogenase Total Creatine Kinase CK-MB (CK-2) C-Reactive Protein Total Protein Albumin Troponin T HDL Cholesterol Arterial Blood Glucose Urine WBC (Auto) Urine Creatinine Urine Total Protein Coronavirus (PCR) Crossmatch 06/01/20 06/01/20 06/02/20 12:28 17:29 00:08 WBC RBC Hgb Hct MCHC RDW Lymph % (Auto) [place] % (Auto) Eos % (Auto) Lymph # [place] # Lymph # (Auto) [place] # (Auto) Seg Neutrophils % Seg Neuts % (Manual) Lymphocytes % (Manual) Seg Neutrophils # Seg Neutrophils # Man Lymphocytes # (Manual) Monocytes % (Manual) Eosinophils % (Manual) Monocytes # (Manual) Eosinophils # (Manual) D-Dimer Heparin Anti-Xa Level ABG pH POC ABG pCO2 POC ABG pO2 ABG pO2 ABG HCO3 ABG O2 Saturation ABG Base Excess ABG Hemoglobin ABG Oxyhemoglobin VBG pH ABG Sodium ABG Potassium ABG Glucose Oxyhemoglobin Sodium Potassium Chloride Carbon Dioxide BUN Creatinine Glucose POC Glucose 199 H 209 H 162 H Lactic Acid Calcium Ferritin AST Alkaline Phosphatase Magnesium Lactate Dehydrogenase Total Creatine Kinase CK-MB (CK-2) C-Reactive Protein Total Protein Albumin Troponin T HDL Cholesterol Arterial Blood Glucose Urine WBC (Auto) Urine Creatinine Urine Total Protein Coronavirus (PCR) Crossmatch 06/02/20 06/02/20 06/02/20 04:20 04:20 04:44 WBC RBC Hgb 10.0 L Hct MCHC RDW Lymph % (Auto) [place] % (Auto) Eos % (Auto) Lymph # [place] # Lymph # (Auto) [place] # (Auto) Seg Neutrophils % Seg Neuts % (Manual) Lymphocytes % (Manual) Seg Neutrophils # Seg Neutrophils # Man Lymphocytes # (Manual) Monocytes % (Manual) Eosinophils % (Manual) Monocytes # (Manual) Eosinophils # (Manual) D-Dimer Heparin Anti-Xa Level 0.10 L ABG pH POC ABG pCO2 POC ABG pO2 ABG pO2 150.6 H ABG HCO3 ABG O2 Saturation ABG Base Excess -4.1 L ABG Hemoglobin 11.8 L ABG Oxyhemoglobin VBG pH ABG Sodium ABG Potassium ABG Glucose Oxyhemoglobin Sodium Potassium Chloride Carbon Dioxide BUN Creatinine Glucose POC Glucose Lactic Acid Calcium Ferritin AST Alkaline Phosphatase Magnesium Lactate Dehydrogenase Total Creatine Kinase CK-MB (CK-2) C-Reactive Protein Total Protein Albumin Troponin T HDL Cholesterol Arterial Blood Glucose Urine WBC (Auto) Urine Creatinine Urine Total Protein Coronavirus (PCR) Crossmatch 06/02/20 06/02/20 06/02/20 05:53 12:04 13:49 WBC RBC Hgb Hct MCHC RDW Lymph % (Auto) [place] % (Auto) Eos % (Auto) Lymph # [place] # Lymph # (Auto) [place] # (Auto) Seg Neutrophils % Seg Neuts % (Manual) Lymphocytes % (Manual) Seg Neutrophils # Seg Neutrophils # Man Lymphocytes # (Manual) Monocytes % (Manual) Eosinophils % (Manual) Monocytes # (Manual) Eosinophils # (Manual) D-Dimer Heparin Anti-Xa Level 0.28 L ABG pH POC ABG pCO2 POC ABG pO2 ABG pO2 ABG HCO3 ABG O2 Saturation ABG Base Excess ABG Hemoglobin ABG Oxyhemoglobin VBG pH ABG Sodium ABG Potassium ABG Glucose Oxyhemoglobin Sodium Potassium Chloride Carbon Dioxide BUN Creatinine Glucose POC Glucose 149 H 220 H Lactic Acid Calcium Ferritin AST Alkaline Phosphatase Magnesium Lactate Dehydrogenase Total Creatine Kinase CK-MB (CK-2) C-Reactive Protein Total Protein Albumin Troponin T HDL Cholesterol Arterial Blood Glucose Urine WBC (Auto) Urine Creatinine Urine Total Protein Coronavirus (PCR) Crossmatch 06/02/20 06/02/20 06/03/20 13:49 18:31 00:42 WBC RBC Hgb Hct MCHC RDW Lymph % (Auto) [place] % (Auto) Eos % (Auto) Lymph # [place] # Lymph # (Auto) [place] # (Auto) Seg Neutrophils % Seg Neuts % (Manual) Lymphocytes % (Manual) Seg Neutrophils # Seg Neutrophils # Man Lymphocytes # (Manual) Monocytes % (Manual) Eosinophils % (Manual) Monocytes # (Manual) Eosinophils # (Manual) D-Dimer 769.68 H Heparin Anti-Xa Level ABG pH POC ABG pCO2 POC ABG pO2 ABG pO2 ABG HCO3 ABG O2 Saturation ABG Base Excess ABG Hemoglobin ABG Oxyhemoglobin VBG pH ABG Sodium ABG Potassium ABG Glucose Oxyhemoglobin Sodium Potassium Chloride Carbon Dioxide BUN Creatinine Glucose POC Glucose 225 H 212 H Lactic Acid Calcium Ferritin AST Alkaline Phosphatase Magnesium Lactate Dehydrogenase Total Creatine Kinase CK-MB (CK-2) C-Reactive Protein Total Protein Albumin Troponin T HDL Cholesterol Arterial Blood Glucose Urine WBC (Auto) Urine Creatinine Urine Total Protein Coronavirus (PCR) Crossmatch 06/03/20 06/03/20 06/03/20 05:16 05:16 05:25 WBC 11.4 H RBC Hgb Hct MCHC RDW 16.4 H Lymph % (Auto) [place] % (Auto) Eos % (Auto) Lymph # [place] # Lymph # (Auto) [place] # (Auto) Seg Neutrophils % Seg Neuts % (Manual) Lymphocytes % (Manual) Seg Neutrophils # Seg Neutrophils # Man Lymphocytes # (Manual) Monocytes % (Manual) Eosinophils % (Manual) Monocytes # (Manual) Eosinophils # (Manual) D-Dimer Heparin Anti-Xa Level ABG pH POC ABG pCO2 POC ABG pO2 ABG pO2 160.9 H ABG HCO3 19.4 L ABG O2 Saturation ABG Base Excess -4.9 L ABG Hemoglobin 7.0 L ABG Oxyhemoglobin VBG pH ABG Sodium ABG Potassium ABG Glucose Oxyhemoglobin Sodium Potassium Chloride Carbon Dioxide 18 L BUN 65 H Creatinine 2.0 H Glucose 175 H POC Glucose Lactic Acid Calcium 8.0 L Ferritin AST Alkaline Phosphatase Magnesium Lactate Dehydrogenase Total Creatine Kinase CK-MB (CK-2) C-Reactive Protein Total Protein 5.5 L Albumin 2.2 L Troponin T HDL Cholesterol Arterial Blood Glucose Urine WBC (Auto) Urine Creatinine Urine Total Protein Coronavirus (PCR) Crossmatch 06/03/20 06/03/20 06/03/20 06:07 11:58 18:24 WBC RBC Hgb Hct MCHC RDW Lymph % (Auto) [place] % (Auto) Eos % (Auto) Lymph # [place] # Lymph # (Auto) [place] # (Auto) Seg Neutrophils % Seg Neuts % (Manual) Lymphocytes % (Manual) Seg Neutrophils # Seg Neutrophils # Man Lymphocytes # (Manual) Monocytes % (Manual) Eosinophils % (Manual) Monocytes # (Manual) Eosinophils # (Manual) D-Dimer Heparin Anti-Xa Level ABG pH POC ABG pCO2 POC ABG pO2 ABG pO2 ABG HCO3 ABG O2 Saturation ABG Base Excess ABG Hemoglobin ABG Oxyhemoglobin VBG pH ABG Sodium ABG Potassium ABG Glucose Oxyhemoglobin Sodium Potassium Chloride Carbon Dioxide BUN Creatinine Glucose POC Glucose 177 H 163 H 211 H Lactic Acid Calcium Ferritin AST Alkaline Phosphatase Magnesium Lactate Dehydrogenase Total Creatine Kinase CK-MB (CK-2) C-Reactive Protein Total Protein Albumin Troponin T HDL Cholesterol Arterial Blood Glucose Urine WBC (Auto) Urine Creatinine Urine Total Protein Coronavirus (PCR) Crossmatch 06/03/20 06/03/20 06/04/20 21:50 Unknown 00:26 WBC RBC Hgb Hct MCHC RDW Lymph % (Auto) [place] % (Auto) Eos % (Auto) Lymph # [place] # Lymph # (Auto) [place] # (Auto) Seg Neutrophils % Seg Neuts % (Manual) Lymphocytes % (Manual) Seg Neutrophils # Seg Neutrophils # Man Lymphocytes # (Manual) Monocytes % (Manual) Eosinophils % (Manual) Monocytes # (Manual) Eosinophils # (Manual) D-Dimer Heparin Anti-Xa Level ABG pH POC ABG pCO2 POC ABG pO2 ABG pO2 ABG HCO3 ABG O2 Saturation ABG Base Excess ABG Hemoglobin ABG Oxyhemoglobin VBG pH ABG Sodium ABG Potassium ABG Glucose Oxyhemoglobin Sodium 135 L Potassium Chloride Carbon Dioxide 18 L BUN Creatinine Glucose POC Glucose 241 H Lactic Acid Calcium Ferritin AST Alkaline Phosphatase Magnesium Lactate Dehydrogenase Total Creatine Kinase CK-MB (CK-2) C-Reactive Protein Total Protein Albumin Troponin T HDL Cholesterol Arterial Blood Glucose Urine WBC (Auto) 11.0 H Urine Creatinine Urine Total Protein Coronavirus (PCR) Crossmatch 06/04/20 06/04/20 06/04/20 03:35 04:19 04:19 WBC RBC 3.15 L Hgb 8.9 L Hct 26.8 L D MCHC RDW 15.9 H Lymph % (Auto) 6.0 L [place] % (Auto) Eos % (Auto) Lymph # 0.6 L [place] # Lymph # (Auto) [place] # (Auto) Seg Neutrophils % 86.6 H Seg Neuts % (Manual) Lymphocytes % (Manual) Seg Neutrophils # 9.1 H Seg Neutrophils # Man Lymphocytes # (Manual) Monocytes % (Manual) Eosinophils % (Manual) Monocytes # (Manual) Eosinophils # (Manual) D-Dimer Heparin Anti-Xa Level ABG pH 7.331 L POC ABG pCO2 POC ABG pO2 ABG pO2 ABG HCO3 ABG O2 Saturation ABG Base Excess -4.7 L ABG Hemoglobin 11.0 L ABG Oxyhemoglobin VBG pH ABG Sodium ABG Potassium ABG Glucose Oxyhemoglobin 93.9 L Sodium 136 L Potassium Chloride Carbon Dioxide 20 L BUN 73 H Creatinine 2.0 H Glucose 192 H POC Glucose Lactic Acid Calcium 8.0 L Ferritin AST Alkaline Phosphatase Magnesium Lactate Dehydrogenase 271 H Total Creatine Kinase CK-MB (CK-2) C-Reactive Protein 2.20 H Total Protein 5.0 L Albumin 2.0 L Troponin T HDL Cholesterol Arterial Blood Glucose Urine WBC (Auto) Urine Creatinine Urine Total Protein Coronavirus (PCR) Crossmatch 06/04/20 06/04/20 06/04/20 04:19 05:51 11:48 WBC RBC Hgb Hct MCHC RDW Lymph % (Auto) [place] % (Auto) Eos % (Auto) Lymph # [place] # Lymph # (Auto) [place] # (Auto) Seg Neutrophils % Seg Neuts % (Manual) Lymphocytes % (Manual) Seg Neutrophils # Seg Neutrophils # Man Lymphocytes # (Manual) Monocytes % (Manual) Eosinophils % (Manual) Monocytes # (Manual) Eosinophils # (Manual) D-Dimer 414.52 H Heparin Anti-Xa Level ABG pH POC ABG pCO2 POC ABG pO2 ABG pO2 ABG HCO3 ABG O2 Saturation ABG Base Excess ABG Hemoglobin ABG Oxyhemoglobin VBG pH ABG Sodium ABG Potassium ABG Glucose Oxyhemoglobin Sodium Potassium Chloride Carbon Dioxide BUN Creatinine Glucose POC Glucose 179 H 213 H Lactic Acid Calcium Ferritin AST Alkaline Phosphatase Magnesium Lactate Dehydrogenase Total Creatine Kinase CK-MB (CK-2) C-Reactive Protein Total Protein Albumin Troponin T HDL Cholesterol Arterial Blood Glucose Urine WBC (Auto) Urine Creatinine Urine Total Protein Coronavirus (PCR) Crossmatch 06/04/20 06/05/20 06/05/20 18:25 00:16 05:00 WBC RBC Hgb Hct MCHC RDW Lymph % (Auto) [place] % (Auto) Eos % (Auto) Lymph # [place] # Lymph # (Auto) [place] # (Auto) Seg Neutrophils % Seg Neuts % (Manual) Lymphocytes % (Manual) Seg Neutrophils # Seg Neutrophils # Man Lymphocytes # (Manual) Monocytes % (Manual) Eosinophils % (Manual) Monocytes # (Manual) Eosinophils # (Manual) D-Dimer Heparin Anti-Xa Level ABG pH 7.286 L POC ABG pCO2 POC ABG pO2 ABG pO2 96.2 H ABG HCO3 ABG O2 Saturation ABG Base Excess -6.3 L ABG Hemoglobin 8.8 L ABG Oxyhemoglobin VBG pH ABG Sodium ABG Potassium ABG Glucose Oxyhemoglobin 94.8 L Sodium Potassium Chloride Carbon Dioxide BUN Creatinine Glucose POC Glucose 238 H 183 H Lactic Acid Calcium Ferritin AST Alkaline Phosphatase Magnesium Lactate Dehydrogenase Total Creatine Kinase CK-MB (CK-2) C-Reactive Protein Total Protein Albumin Troponin T HDL Cholesterol Arterial Blood Glucose Urine WBC (Auto) Urine Creatinine Urine Total Protein Coronavirus (PCR) Crossmatch 06/05/20 06/05/20 06/05/20 05:39 07:25 07:25 WBC RBC 2.97 L Hgb 8.7 L Hct 25.7 L MCHC RDW 16.0 H Lymph % (Auto) 8.8 L [place] % (Auto) 13.3 H Eos % (Auto) Lymph # 0.8 L [place] # 1.3 H Lymph # (Auto) [place] # (Auto) Seg Neutrophils % 77.3 H Seg Neuts % (Manual) Lymphocytes % (Manual) Seg Neutrophils # Seg Neutrophils # Man Lymphocytes # (Manual) Monocytes % (Manual) Eosinophils % (Manual) Monocytes # (Manual) Eosinophils # (Manual) D-Dimer Heparin Anti-Xa Level ABG pH POC ABG pCO2 POC ABG pO2 ABG pO2 ABG HCO3 ABG O2 Saturation ABG Base Excess ABG Hemoglobin ABG Oxyhemoglobin VBG pH ABG Sodium ABG Potassium ABG Glucose Oxyhemoglobin Sodium 133 L Potassium Chloride Carbon Dioxide 17 L BUN 89 H Creatinine 2.8 H Glucose 176 H POC Glucose 149 H Lactic Acid Calcium 7.7 L Ferritin AST Alkaline Phosphatase Magnesium Lactate Dehydrogenase Total Creatine Kinase CK-MB (CK-2) C-Reactive Protein Total Protein 4.2 L Albumin 1.9 L Troponin T HDL Cholesterol Arterial Blood Glucose Urine WBC (Auto) Urine Creatinine Urine Total Protein Coronavirus (PCR) Crossmatch 06/05/20 06/05/20 06/05/20 07:25 12:05 15:41 WBC RBC Hgb Hct MCHC RDW Lymph % (Auto) [place] % (Auto) Eos % (Auto) Lymph # [place] # Lymph # (Auto) [place] # (Auto) Seg Neutrophils % Seg Neuts % (Manual) Lymphocytes % (Manual) Seg Neutrophils # Seg Neutrophils # Man Lymphocytes # (Manual) Monocytes % (Manual) Eosinophils % (Manual) Monocytes # (Manual) Eosinophils # (Manual) D-Dimer Heparin Anti-Xa Level 0.76 H 0.81 H ABG pH POC ABG pCO2 POC ABG pO2 ABG pO2 ABG HCO3 ABG O2 Saturation ABG Base Excess ABG Hemoglobin ABG Oxyhemoglobin VBG pH ABG Sodium ABG Potassium ABG Glucose Oxyhemoglobin Sodium Potassium Chloride Carbon Dioxide BUN Creatinine Glucose POC Glucose 198 H Lactic Acid Calcium Ferritin AST Alkaline Phosphatase Magnesium Lactate Dehydrogenase Total Creatine Kinase CK-MB (CK-2) C-Reactive Protein Total Protein Albumin Troponin T HDL Cholesterol Arterial Blood Glucose Urine WBC (Auto) Urine Creatinine Urine Total Protein Coronavirus (PCR) Crossmatch 06/05/20 06/05/20 06/06/20 18:08 23:25 04:00 WBC RBC Hgb Hct MCHC RDW Lymph % (Auto) [place] % (Auto) Eos % (Auto) Lymph # [place] # Lymph # (Auto) [place] # (Auto) Seg Neutrophils % Seg Neuts % (Manual) Lymphocytes % (Manual) Seg Neutrophils # Seg Neutrophils # Man Lymphocytes # (Manual) Monocytes % (Manual) Eosinophils % (Manual) Monocytes # (Manual) Eosinophils # (Manual) D-Dimer Heparin Anti-Xa Level ABG pH POC ABG pCO2 POC ABG pO2 ABG pO2 ABG HCO3 ABG O2 Saturation ABG Base Excess ABG Hemoglobin ABG Oxyhemoglobin VBG pH ABG Sodium ABG Potassium ABG Glucose Oxyhemoglobin Sodium Potassium Chloride Carbon Dioxide BUN Creatinine Glucose POC Glucose 223 H 169 H Lactic Acid Calcium Ferritin AST Alkaline Phosphatase Magnesium Lactate Dehydrogenase Total Creatine Kinase CK-MB (CK-2) C-Reactive Protein Total Protein Albumin Troponin T HDL Cholesterol Arterial Blood Glucose Urine WBC (Auto) 15.0 H Urine Creatinine Urine Total Protein Coronavirus (PCR) Crossmatch 06/06/20 06/06/20 06/06/20 04:00 05:33 05:38 WBC RBC 2.97 L Hgb 8.7 L Hct 26.8 L MCHC RDW 16.8 H Lymph % (Auto) [place] % (Auto) Eos % (Auto) Lymph # [place] # Lymph # (Auto) [place] # (Auto) Seg Neutrophils % Seg Neuts % (Manual) Lymphocytes % (Manual) Seg Neutrophils # Seg Neutrophils # Man Lymphocytes # (Manual) Monocytes % (Manual) Eosinophils % (Manual) Monocytes # (Manual) Eosinophils # (Manual) D-Dimer Heparin Anti-Xa Level ABG pH POC ABG pCO2 POC ABG pO2 ABG pO2 ABG HCO3 ABG O2 Saturation ABG Base Excess ABG Hemoglobin ABG Oxyhemoglobin VBG pH ABG Sodium ABG Potassium ABG Glucose Oxyhemoglobin Sodium Potassium Chloride Carbon Dioxide BUN Creatinine Glucose POC Glucose 186 H Lactic Acid Calcium Ferritin AST Alkaline Phosphatase Magnesium Lactate Dehydrogenase Total Creatine Kinase CK-MB (CK-2) C-Reactive Protein Total Protein Albumin Troponin T HDL Cholesterol Arterial Blood Glucose Urine WBC (Auto) Urine Creatinine 82.2 H Urine Total Protein 196 H Coronavirus (PCR) Crossmatch 06/06/20 06/06/20 06/06/20 05:38 12:25 17:03 WBC RBC Hgb Hct MCHC RDW Lymph % (Auto) [place] % (Auto) Eos % (Auto) Lymph # [place] # Lymph # (Auto) [place] # (Auto) Seg Neutrophils % Seg Neuts % (Manual) Lymphocytes % (Manual) Seg Neutrophils # Seg Neutrophils # Man Lymphocytes # (Manual) Monocytes % (Manual) Eosinophils % (Manual) Monocytes # (Manual) Eosinophils # (Manual) D-Dimer Heparin Anti-Xa Level ABG pH POC ABG pCO2 POC ABG pO2 ABG pO2 ABG HCO3 ABG O2 Saturation ABG Base Excess ABG Hemoglobin ABG Oxyhemoglobin VBG pH ABG Sodium ABG Potassium ABG Glucose Oxyhemoglobin Sodium 134 L Potassium 5.2 H Chloride Carbon Dioxide 18 L BUN 97 H Creatinine 2.5 H Glucose 193 H POC Glucose 239 H 252 H Lactic Acid Calcium 7.5 L Ferritin AST Alkaline Phosphatase Magnesium Lactate Dehydrogenase Total Creatine Kinase CK-MB (CK-2) C-Reactive Protein Total Protein 4.1 L Albumin 1.9 L Troponin T HDL Cholesterol Arterial Blood Glucose Urine WBC (Auto) Urine Creatinine Urine Total Protein Coronavirus (PCR) Crossmatch 06/07/20 06/07/20 06/07/20 00:16 01:49 04:00 WBC RBC 2.91 L Hgb 8.4 L Hct 25.0 L MCHC RDW 16.1 H Lymph % (Auto) 5.7 L [place] % (Auto) 10.5 H Eos % (Auto) Lymph # 0.6 L [place] # 1.1 H Lymph # (Auto) [place] # (Auto) Seg Neutrophils % 83.6 H Seg Neuts % (Manual) Lymphocytes % (Manual) Seg Neutrophils # 9.1 H Seg Neutrophils # Man Lymphocytes # (Manual) Monocytes % (Manual) Eosinophils % (Manual) Monocytes # (Manual) Eosinophils # (Manual) D-Dimer Heparin Anti-Xa Level 0.26 L ABG pH POC ABG pCO2 POC ABG pO2 ABG pO2 ABG HCO3 ABG O2 Saturation ABG Base Excess ABG Hemoglobin ABG Oxyhemoglobin VBG pH ABG Sodium ABG Potassium ABG Glucose Oxyhemoglobin Sodium Potassium Chloride Carbon Dioxide BUN Creatinine Glucose POC Glucose 173 H Lactic Acid Calcium Ferritin AST Alkaline Phosphatase Magnesium Lactate Dehydrogenase Total Creatine Kinase CK-MB (CK-2) C-Reactive Protein Total Protein Albumin Troponin T HDL Cholesterol Arterial Blood Glucose Urine WBC (Auto) Urine Creatinine Urine Total Protein Coronavirus (PCR) Crossmatch 06/07/20 06/07/20 06/07/20 04:00 04:54 05:51 WBC RBC Hgb Hct MCHC RDW Lymph % (Auto) [place] % (Auto) Eos % (Auto) Lymph # [place] # Lymph # (Auto) [place] # (Auto) Seg Neutrophils % Seg Neuts % (Manual) Lymphocytes % (Manual) Seg Neutrophils # Seg Neutrophils # Man Lymphocytes # (Manual) Monocytes % (Manual) Eosinophils % (Manual) Monocytes # (Manual) Eosinophils # (Manual) D-Dimer Heparin Anti-Xa Level ABG pH 7.317 L POC ABG pCO2 POC ABG pO2 ABG pO2 71.4 L ABG HCO3 ABG O2 Saturation 94.3 L ABG Base Excess -4.8 L ABG Hemoglobin 7.1 L ABG Oxyhemoglobin VBG pH ABG Sodium ABG Potassium ABG Glucose Oxyhemoglobin 92.2 L Sodium 133 L Potassium Chloride Carbon Dioxide 18 L BUN 100 H Creatinine 2.5 H Glucose 158 H POC Glucose 168 H Lactic Acid Calcium 7.6 L Ferritin AST Alkaline Phosphatase Magnesium Lactate Dehydrogenase Total Creatine Kinase CK-MB (CK-2) C-Reactive Protein Total Protein 4.7 L Albumin 2.0 L Troponin T HDL Cholesterol Arterial Blood Glucose Urine WBC (Auto) Urine Creatinine Urine Total Protein Coronavirus (PCR) Crossmatch 06/07/20 06/07/20 06/07/20 12:03 17:17 20:10 WBC RBC Hgb Hct MCHC RDW Lymph % (Auto) [place] % (Auto) Eos % (Auto) Lymph # [place] # Lymph # (Auto) [place] # (Auto) Seg Neutrophils % Seg Neuts % (Manual) Lymphocytes % (Manual) Seg Neutrophils # Seg Neutrophils # Man Lymphocytes # (Manual) Monocytes % (Manual) Eosinophils % (Manual) Monocytes # (Manual) Eosinophils # (Manual) D-Dimer Heparin Anti-Xa Level 0.17 L ABG pH POC ABG pCO2 POC ABG pO2 ABG pO2 ABG HCO3 ABG O2 Saturation ABG Base Excess ABG Hemoglobin ABG Oxyhemoglobin VBG pH ABG Sodium ABG Potassium ABG Glucose Oxyhemoglobin Sodium Potassium Chloride Carbon Dioxide BUN Creatinine Glucose POC Glucose 276 H 281 H Lactic Acid Calcium Ferritin AST Alkaline Phosphatase Magnesium Lactate Dehydrogenase Total Creatine Kinase CK-MB (CK-2) C-Reactive Protein Total Protein Albumin Troponin T HDL Cholesterol Arterial Blood Glucose Urine WBC (Auto) Urine Creatinine Urine Total Protein Coronavirus (PCR) Crossmatch 06/08/20 06/08/20 06/08/20 00:02 04:47 04:47 WBC 16.4 H RBC 3.07 L Hgb 8.6 L Hct 26.5 L MCHC RDW 16.3 H Lymph % (Auto) [place] % (Auto) Eos % (Auto) Lymph # [place] # Lymph # (Auto) [place] # (Auto) Seg Neutrophils % Seg Neuts % (Manual) 90.0 H Lymphocytes % (Manual) 3.0 L Seg Neutrophils # Seg Neutrophils # Man 14.8 H Lymphocytes # (Manual) 0.5 L Monocytes % (Manual) Eosinophils % (Manual) Monocytes # (Manual) 1.1 H Eosinophils # (Manual) D-Dimer Heparin Anti-Xa Level ABG pH POC ABG pCO2 POC ABG pO2 ABG pO2 ABG HCO3 ABG O2 Saturation ABG Base Excess ABG Hemoglobin ABG Oxyhemoglobin VBG pH ABG Sodium ABG Potassium ABG Glucose Oxyhemoglobin Sodium 129 L Potassium Chloride 95.6 L Carbon Dioxide 17 L BUN 106 H Creatinine 2.5 H Glucose 213 H POC Glucose 242 H Lactic Acid Calcium 7.6 L Ferritin AST Alkaline Phosphatase Magnesium Lactate Dehydrogenase Total Creatine Kinase CK-MB (CK-2) C-Reactive Protein Total Protein 5.0 L Albumin 2.1 L Troponin T HDL Cholesterol Arterial Blood Glucose Urine WBC (Auto) Urine Creatinine Urine Total Protein Coronavirus (PCR) Crossmatch 06/08/20 06/08/20 06/08/20 05:40 11:55 17:54 WBC RBC Hgb Hct MCHC RDW Lymph % (Auto) [place] % (Auto) Eos % (Auto) Lymph # [place] # Lymph # (Auto) [place] # (Auto) Seg Neutrophils % Seg Neuts % (Manual) Lymphocytes % (Manual) Seg Neutrophils # Seg Neutrophils # Man Lymphocytes # (Manual) Monocytes % (Manual) Eosinophils % (Manual) Monocytes # (Manual) Eosinophils # (Manual) D-Dimer Heparin Anti-Xa Level ABG pH POC ABG pCO2 POC ABG pO2 ABG pO2 ABG HCO3 ABG O2 Saturation ABG Base Excess ABG Hemoglobin ABG Oxyhemoglobin VBG pH ABG Sodium ABG Potassium ABG Glucose Oxyhemoglobin Sodium Potassium Chloride Carbon Dioxide BUN Creatinine Glucose POC Glucose 221 H 218 H 163 H Lactic Acid Calcium Ferritin AST Alkaline Phosphatase Magnesium Lactate Dehydrogenase Total Creatine Kinase CK-MB (CK-2) C-Reactive Protein Total Protein Albumin Troponin T HDL Cholesterol Arterial Blood Glucose Urine WBC (Auto) Urine Creatinine Urine Total Protein Coronavirus (PCR) Crossmatch 06/08/20 06/09/20 06/09/20 22:01 00:09 05:16 WBC 19.0 H RBC 3.35 L Hgb 9.2 L Hct 28.5 L MCHC RDW 16.3 H Lymph % (Auto) [place] % (Auto) Eos % (Auto) Lymph # [place] # Lymph # (Auto) [place] # (Auto) Seg Neutrophils % Seg Neuts % (Manual) 85.0 H Lymphocytes % (Manual) 7.0 L Seg Neutrophils # Seg Neutrophils # Man 16.2 H Lymphocytes # (Manual) Monocytes % (Manual) Eosinophils % (Manual) Monocytes # (Manual) 1.3 H Eosinophils # (Manual) D-Dimer Heparin Anti-Xa Level ABG pH POC ABG pCO2 POC ABG pO2 ABG pO2 ABG HCO3 ABG O2 Saturation ABG Base Excess ABG Hemoglobin ABG Oxyhemoglobin VBG pH ABG Sodium ABG Potassium ABG Glucose Oxyhemoglobin Sodium Potassium Chloride Carbon Dioxide BUN Creatinine Glucose POC Glucose 182 H 150 H Lactic Acid Calcium Ferritin AST Alkaline Phosphatase Magnesium Lactate Dehydrogenase Total Creatine Kinase CK-MB (CK-2) C-Reactive Protein Total Protein Albumin Troponin T HDL Cholesterol Arterial Blood Glucose Urine WBC (Auto) Urine Creatinine Urine Total Protein Coronavirus (PCR) Crossmatch 06/09/20 06/09/20 06/09/20 05:16 05:24 11:29 WBC RBC Hgb Hct MCHC RDW Lymph % (Auto) [place] % (Auto) Eos % (Auto) Lymph # [place] # Lymph # (Auto) [place] # (Auto) Seg Neutrophils % Seg Neuts % (Manual) Lymphocytes % (Manual) Seg Neutrophils # Seg Neutrophils # Man Lymphocytes # (Manual) Monocytes % (Manual) Eosinophils % (Manual) Monocytes # (Manual) Eosinophils # (Manual) D-Dimer Heparin Anti-Xa Level ABG pH POC ABG pCO2 POC ABG pO2 ABG pO2 ABG HCO3 ABG O2 Saturation ABG Base Excess ABG Hemoglobin ABG Oxyhemoglobin VBG pH ABG Sodium ABG Potassium ABG Glucose Oxyhemoglobin Sodium 133 L Potassium Chloride Carbon Dioxide 19 L BUN 109 H Creatinine 2.1 H Glucose 133 H POC Glucose 128 H 119 H Lactic Acid Calcium 7.7 L Ferritin AST Alkaline Phosphatase < 5 L Magnesium Lactate Dehydrogenase Total Creatine Kinase CK-MB (CK-2) C-Reactive Protein Total Protein 4.6 L Albumin < 0.2 L Troponin T HDL Cholesterol Arterial Blood Glucose Urine WBC (Auto) Urine Creatinine Urine Total Protein Coronavirus (PCR) Crossmatch 06/09/20 06/10/20 06/10/20 17:32 00:00 05:49 WBC RBC Hgb Hct MCHC RDW Lymph % (Auto) [place] % (Auto) Eos % (Auto) Lymph # [place] # Lymph # (Auto) [place] # (Auto) Seg Neutrophils % Seg Neuts % (Manual) Lymphocytes % (Manual) Seg Neutrophils # Seg Neutrophils # Man Lymphocytes # (Manual) Monocytes % (Manual) Eosinophils % (Manual) Monocytes # (Manual) Eosinophils # (Manual) D-Dimer Heparin Anti-Xa Level 0.19 L ABG pH POC ABG pCO2 POC ABG pO2 ABG pO2 ABG HCO3 ABG O2 Saturation ABG Base Excess ABG Hemoglobin ABG Oxyhemoglobin VBG pH ABG Sodium ABG Potassium ABG Glucose Oxyhemoglobin Sodium Potassium Chloride Carbon Dioxide BUN Creatinine Glucose POC Glucose 106 H 117 H Lactic Acid Calcium Ferritin AST Alkaline Phosphatase Magnesium Lactate Dehydrogenase Total Creatine Kinase CK-MB (CK-2) C-Reactive Protein Total Protein Albumin Troponin T HDL Cholesterol Arterial Blood Glucose Urine WBC (Auto) Urine Creatinine Urine Total Protein Coronavirus (PCR) Crossmatch 06/10/20 06/10/20 06/10/20 05:54 07:40 11:40 WBC RBC Hgb Hct MCHC RDW Lymph % (Auto) [place] % (Auto) Eos % (Auto) Lymph # [place] # Lymph # (Auto) [place] # (Auto) Seg Neutrophils % Seg Neuts % (Manual) Lymphocytes % (Manual) Seg Neutrophils # Seg Neutrophils # Man Lymphocytes # (Manual) Monocytes % (Manual) Eosinophils % (Manual) Monocytes # (Manual) Eosinophils # (Manual) D-Dimer Heparin Anti-Xa Level ABG pH POC ABG pCO2 POC ABG pO2 ABG pO2 ABG HCO3 ABG O2 Saturation ABG Base Excess ABG Hemoglobin ABG Oxyhemoglobin VBG pH ABG Sodium ABG Potassium ABG Glucose Oxyhemoglobin Sodium 146 H D Potassium Chloride Carbon Dioxide 20 L BUN 99 H Creatinine 1.9 H Glucose 121 H POC Glucose 127 H 138 H Lactic Acid Calcium 8.2 L Ferritin AST Alkaline Phosphatase Magnesium Lactate Dehydrogenase Total Creatine Kinase CK-MB (CK-2) C-Reactive Protein Total Protein Albumin Troponin T HDL Cholesterol Arterial Blood Glucose Urine WBC (Auto) Urine Creatinine Urine Total Protein Coronavirus (PCR) Crossmatch 06/10/20 06/10/20 06/10/20 14:44 17:31 23:22 WBC RBC Hgb Hct MCHC RDW Lymph % (Auto) [place] % (Auto) Eos % (Auto) Lymph # [place] # Lymph # (Auto) [place] # (Auto) Seg Neutrophils % Seg Neuts % (Manual) Lymphocytes % (Manual) Seg Neutrophils # Seg Neutrophils # Man Lymphocytes # (Manual) Monocytes % (Manual) Eosinophils % (Manual) Monocytes # (Manual) Eosinophils # (Manual) D-Dimer Heparin Anti-Xa Level 0.17 L ABG pH POC ABG pCO2 POC ABG pO2 ABG pO2 ABG HCO3 ABG O2 Saturation ABG Base Excess ABG Hemoglobin ABG Oxyhemoglobin VBG pH ABG Sodium ABG Potassium ABG Glucose Oxyhemoglobin Sodium Potassium Chloride Carbon Dioxide BUN Creatinine Glucose POC Glucose 128 H 114 H Lactic Acid Calcium Ferritin AST Alkaline Phosphatase Magnesium Lactate Dehydrogenase Total Creatine Kinase CK-MB (CK-2) C-Reactive Protein Total Protein Albumin Troponin T HDL Cholesterol Arterial Blood Glucose Urine WBC (Auto) Urine Creatinine Urine Total Protein Coronavirus (PCR) Crossmatch 06/11/20 06/11/20 06/11/20 00:22 03:45 03:45 WBC 14.6 H RBC 2.77 L Hgb 7.9 L Hct 24.3 L MCHC RDW 16.8 H Lymph % (Auto) 6.6 L [place] % (Auto) 8.5 H Eos % (Auto) Lymph # 1.0 L [place] # 1.2 H Lymph # (Auto) [place] # (Auto) Seg Neutrophils % 82.9 H Seg Neuts % (Manual) Lymphocytes % (Manual) Seg Neutrophils # 12.1 H Seg Neutrophils # Man Lymphocytes # (Manual) Monocytes % (Manual) Eosinophils % (Manual) Monocytes # (Manual) Eosinophils # (Manual) D-Dimer Heparin Anti-Xa Level 0.24 L ABG pH POC ABG pCO2 POC ABG pO2 ABG pO2 ABG HCO3 ABG O2 Saturation ABG Base Excess ABG Hemoglobin ABG Oxyhemoglobin VBG pH ABG Sodium ABG Potassium ABG Glucose Oxyhemoglobin Sodium Potassium Chloride Carbon Dioxide 20 L BUN 88 H Creatinine 1.5 H Glucose 111 H POC Glucose Lactic Acid Calcium 8.2 L Ferritin AST Alkaline Phosphatase Magnesium Lactate Dehydrogenase Total Creatine Kinase CK-MB (CK-2) C-Reactive Protein Total Protein Albumin Troponin T HDL Cholesterol Arterial Blood Glucose Urine WBC (Auto) Urine Creatinine Urine Total Protein Coronavirus (PCR) Crossmatch 06/11/20 06/11/20 06/11/20 06:03 10:22 11:11 WBC RBC Hgb Hct MCHC RDW Lymph % (Auto) [place] % (Auto) Eos % (Auto) Lymph # [place] # Lymph # (Auto) [place] # (Auto) Seg Neutrophils % Seg Neuts % (Manual) Lymphocytes % (Manual) Seg Neutrophils # Seg Neutrophils # Man Lymphocytes # (Manual) Monocytes % (Manual) Eosinophils % (Manual) Monocytes # (Manual) Eosinophils # (Manual) D-Dimer Heparin Anti-Xa Level 0.26 L ABG pH POC ABG pCO2 POC ABG pO2 ABG pO2 ABG HCO3 ABG O2 Saturation ABG Base Excess ABG Hemoglobin 9.6 L ABG Oxyhemoglobin VBG pH ABG Sodium ABG Potassium ABG Glucose Oxyhemoglobin Sodium Potassium Chloride Carbon Dioxide BUN Creatinine Glucose POC Glucose 114 H Lactic Acid Calcium Ferritin AST Alkaline Phosphatase Magnesium Lactate Dehydrogenase Total Creatine Kinase CK-MB (CK-2) C-Reactive Protein Total Protein Albumin Troponin T HDL Cholesterol Arterial Blood Glucose Urine WBC (Auto) Urine Creatinine Urine Total Protein Coronavirus (PCR) Crossmatch 06/11/20 06/11/20 06/12/20 12:24 17:24 00:21 WBC RBC Hgb Hct MCHC RDW Lymph % (Auto) [place] % (Auto) Eos % (Auto) Lymph # [place] # Lymph # (Auto) [place] # (Auto) Seg Neutrophils % Seg Neuts % (Manual) Lymphocytes % (Manual) Seg Neutrophils # Seg Neutrophils # Man Lymphocytes # (Manual) Monocytes % (Manual) Eosinophils % (Manual) Monocytes # (Manual) Eosinophils # (Manual) D-Dimer Heparin Anti-Xa Level ABG pH POC ABG pCO2 POC ABG pO2 ABG pO2 ABG HCO3 ABG O2 Saturation ABG Base Excess ABG Hemoglobin ABG Oxyhemoglobin VBG pH ABG Sodium ABG Potassium ABG Glucose Oxyhemoglobin Sodium Potassium Chloride Carbon Dioxide BUN Creatinine Glucose POC Glucose 119 H 126 H 117 H Lactic Acid Calcium Ferritin AST Alkaline Phosphatase Magnesium Lactate Dehydrogenase Total Creatine Kinase CK-MB (CK-2) C-Reactive Protein Total Protein Albumin Troponin T HDL Cholesterol Arterial Blood Glucose Urine WBC (Auto) Urine Creatinine Urine Total Protein Coronavirus (PCR) Crossmatch 06/12/20 06/12/20 06/12/20 02:46 02:46 05:46 WBC 13.2 H RBC 2.83 L Hgb 8.3 L Hct 24.3 L MCHC RDW 16.6 H Lymph % (Auto) 6.2 L [place] % (Auto) 9.5 H Eos % (Auto) Lymph # 0.8 L [place] # 1.3 H Lymph # (Auto) [place] # (Auto) Seg Neutrophils % 81.9 H Seg Neuts % (Manual) Lymphocytes % (Manual) Seg Neutrophils # 10.9 H Seg Neutrophils # Man Lymphocytes # (Manual) Monocytes % (Manual) Eosinophils % (Manual) Monocytes # (Manual) Eosinophils # (Manual) D-Dimer Heparin Anti-Xa Level ABG pH POC ABG pCO2 POC ABG pO2 ABG pO2 ABG HCO3 ABG O2 Saturation ABG Base Excess ABG Hemoglobin ABG Oxyhemoglobin VBG pH ABG Sodium ABG Potassium ABG Glucose Oxyhemoglobin Sodium Potassium 3.5 L Chloride Carbon Dioxide BUN 77 H Creatinine 1.3 H Glucose POC Glucose 132 H Lactic Acid Calcium 8.3 L Ferritin AST Alkaline Phosphatase Magnesium Lactate Dehydrogenase Total Creatine Kinase CK-MB (CK-2) C-Reactive Protein Total Protein Albumin Troponin T HDL Cholesterol Arterial Blood Glucose Urine WBC (Auto) Urine Creatinine Urine Total Protein Coronavirus (PCR) Crossmatch 06/12/20 06/12/20 06/12/20 09:20 12:16 17:48 WBC RBC Hgb Hct MCHC RDW Lymph % (Auto) [place] % (Auto) Eos % (Auto) Lymph # [place] # Lymph # (Auto) [place] # (Auto) Seg Neutrophils % Seg Neuts % (Manual) Lymphocytes % (Manual) Seg Neutrophils # Seg Neutrophils # Man Lymphocytes # (Manual) Monocytes % (Manual) Eosinophils % (Manual) Monocytes # (Manual) Eosinophils # (Manual) D-Dimer Heparin Anti-Xa Level ABG pH POC ABG pCO2 POC ABG pO2 ABG pO2 91.1 H ABG HCO3 ABG O2 Saturation ABG Base Excess ABG Hemoglobin ABG Oxyhemoglobin VBG pH ABG Sodium ABG Potassium ABG Glucose Oxyhemoglobin 94.8 L Sodium Potassium Chloride Carbon Dioxide BUN Creatinine Glucose POC Glucose 167 H 182 H Lactic Acid Calcium Ferritin AST Alkaline Phosphatase Magnesium Lactate Dehydrogenase Total Creatine Kinase CK-MB (CK-2) C-Reactive Protein Total Protein Albumin Troponin T HDL Cholesterol Arterial Blood Glucose Urine WBC (Auto) Urine Creatinine Urine Total Protein Coronavirus (PCR) Crossmatch 06/13/20 06/13/20 06/13/20 00:08 05:37 09:09 WBC RBC Hgb Hct MCHC RDW Lymph % (Auto) [place] % (Auto) Eos % (Auto) Lymph # [place] # Lymph # (Auto) [place] # (Auto) Seg Neutrophils % Seg Neuts % (Manual) Lymphocytes % (Manual) Seg Neutrophils # Seg Neutrophils # Man Lymphocytes # (Manual) Monocytes % (Manual) Eosinophils % (Manual) Monocytes # (Manual) Eosinophils # (Manual) D-Dimer Heparin Anti-Xa Level 0.86 H ABG pH POC ABG pCO2 POC ABG pO2 ABG pO2 ABG HCO3 ABG O2 Saturation ABG Base Excess ABG Hemoglobin ABG Oxyhemoglobin VBG pH ABG Sodium ABG Potassium ABG Glucose Oxyhemoglobin Sodium Potassium Chloride Carbon Dioxide BUN Creatinine Glucose POC Glucose 142 H 119 H Lactic Acid Calcium Ferritin AST Alkaline Phosphatase Magnesium Lactate Dehydrogenase Total Creatine Kinase CK-MB (CK-2) C-Reactive Protein Total Protein Albumin Troponin T HDL Cholesterol Arterial Blood Glucose Urine WBC (Auto) Urine Creatinine Urine Total Protein Coronavirus (PCR) Crossmatch 06/13/20 06/13/20 06/13/20 12:28 17:55 21:17 WBC RBC Hgb Hct MCHC RDW Lymph % (Auto) [place] % (Auto) Eos % (Auto) Lymph # [place] # Lymph # (Auto) [place] # (Auto) Seg Neutrophils % Seg Neuts % (Manual) Lymphocytes % (Manual) Seg Neutrophils # Seg Neutrophils # Man Lymphocytes # (Manual) Monocytes % (Manual) Eosinophils % (Manual) Monocytes # (Manual) Eosinophils # (Manual) D-Dimer Heparin Anti-Xa Level ABG pH POC ABG pCO2 POC ABG pO2 ABG pO2 ABG HCO3 ABG O2 Saturation ABG Base Excess ABG Hemoglobin ABG Oxyhemoglobin VBG pH ABG Sodium ABG Potassium ABG Glucose Oxyhemoglobin Sodium Potassium Chloride Carbon Dioxide BUN 61 H Creatinine Glucose 131 H POC Glucose 165 H 174 H Lactic Acid Calcium Ferritin AST Alkaline Phosphatase Magnesium Lactate Dehydrogenase Total Creatine Kinase CK-MB (CK-2) C-Reactive Protein Total Protein Albumin Troponin T HDL Cholesterol Arterial Blood Glucose Urine WBC (Auto) Urine Creatinine Urine Total Protein Coronavirus (PCR) Crossmatch 06/13/20 06/13/20 06/14/20 21:17 23:50 05:34 WBC RBC Hgb Hct MCHC RDW Lymph % (Auto) [place] % (Auto) Eos % (Auto) Lymph # [place] # Lymph # (Auto) [place] # (Auto) Seg Neutrophils % Seg Neuts % (Manual) Lymphocytes % (Manual) Seg Neutrophils # Seg Neutrophils # Man Lymphocytes # (Manual) Monocytes % (Manual) Eosinophils % (Manual) Monocytes # (Manual) Eosinophils # (Manual) D-Dimer Heparin Anti-Xa Level 0.72 H ABG pH POC ABG pCO2 POC ABG pO2 ABG pO2 ABG HCO3 ABG O2 Saturation ABG Base Excess ABG Hemoglobin ABG Oxyhemoglobin VBG pH ABG Sodium ABG Potassium ABG Glucose Oxyhemoglobin Sodium 146 H Potassium Chloride 107.6 H Carbon Dioxide BUN 61 H Creatinine 1.3 H Glucose 135 H POC Glucose 146 H Lactic Acid Calcium Ferritin AST Alkaline Phosphatase Magnesium Lactate Dehydrogenase Total Creatine Kinase CK-MB (CK-2) C-Reactive Protein Total Protein Albumin Troponin T HDL Cholesterol Arterial Blood Glucose Urine WBC (Auto) Urine Creatinine Urine Total Protein Coronavirus (PCR) Crossmatch 06/14/20 06/14/20 06/14/20 06:11 09:28 11:30 WBC RBC Hgb Hct MCHC RDW Lymph % (Auto) [place] % (Auto) Eos % (Auto) Lymph # [place] # Lymph # (Auto) [place] # (Auto) Seg Neutrophils % Seg Neuts % (Manual) Lymphocytes % (Manual) Seg Neutrophils # Seg Neutrophils # Man Lymphocytes # (Manual) Monocytes % (Manual) Eosinophils % (Manual) Monocytes # (Manual) Eosinophils # (Manual) D-Dimer Heparin Anti-Xa Level 0.90 H ABG pH POC ABG pCO2 POC ABG pO2 ABG pO2 ABG HCO3 ABG O2 Saturation ABG Base Excess ABG Hemoglobin ABG Oxyhemoglobin VBG pH ABG Sodium ABG Potassium ABG Glucose Oxyhemoglobin Sodium Potassium Chloride Carbon Dioxide BUN Creatinine Glucose POC Glucose 141 H 186 H Lactic Acid Calcium Ferritin AST Alkaline Phosphatase Magnesium Lactate Dehydrogenase Total Creatine Kinase CK-MB (CK-2) C-Reactive Protein Total Protein Albumin Troponin T HDL Cholesterol Arterial Blood Glucose Urine WBC (Auto) Urine Creatinine Urine Total Protein Coronavirus (PCR) Crossmatch 06/14/20 06/14/20 06/14/20 16:07 18:16 23:51 WBC RBC Hgb Hct MCHC RDW Lymph % (Auto) [place] % (Auto) Eos % (Auto) Lymph # [place] # Lymph # (Auto) [place] # (Auto) Seg Neutrophils % Seg Neuts % (Manual) Lymphocytes % (Manual) Seg Neutrophils # Seg Neutrophils # Man Lymphocytes # (Manual) Monocytes % (Manual) Eosinophils % (Manual) Monocytes # (Manual) Eosinophils # (Manual) D-Dimer Heparin Anti-Xa Level 0.82 H ABG pH POC ABG pCO2 POC ABG pO2 ABG pO2 ABG HCO3 ABG O2 Saturation ABG Base Excess ABG Hemoglobin ABG Oxyhemoglobin VBG pH ABG Sodium ABG Potassium ABG Glucose Oxyhemoglobin Sodium Potassium Chloride Carbon Dioxide BUN Creatinine Glucose POC Glucose 106 H 154 H Lactic Acid Calcium Ferritin AST Alkaline Phosphatase Magnesium Lactate Dehydrogenase Total Creatine Kinase CK-MB (CK-2) C-Reactive Protein Total Protein Albumin Troponin T HDL Cholesterol Arterial Blood Glucose Urine WBC (Auto) Urine Creatinine Urine Total Protein Coronavirus (PCR) Crossmatch 06/15/20 06/15/20 06/15/20 04:24 04:24 05:59 WBC RBC 2.75 L Hgb 7.9 L Hct 24.0 L MCHC RDW 16.4 H Lymph % (Auto) 12.9 L [place] % (Auto) 8.7 H Eos % (Auto) 4.6 H Lymph # 1.1 L [place] # Lymph # (Auto) [place] # (Auto) Seg Neutrophils % 73.2 H Seg Neuts % (Manual) Lymphocytes % (Manual) Seg Neutrophils # Seg Neutrophils # Man Lymphocytes # (Manual) Monocytes % (Manual) Eosinophils % (Manual) Monocytes # (Manual) Eosinophils # (Manual) D-Dimer Heparin Anti-Xa Level ABG pH POC ABG pCO2 POC ABG pO2 ABG pO2 ABG HCO3 ABG O2 Saturation ABG Base Excess ABG Hemoglobin ABG Oxyhemoglobin VBG pH ABG Sodium ABG Potassium ABG Glucose Oxyhemoglobin Sodium Potassium 3.4 L Chloride Carbon Dioxide BUN 55 H Creatinine 1.3 H Glucose 142 H POC Glucose 131 H Lactic Acid Calcium Ferritin AST Alkaline Phosphatase Magnesium Lactate Dehydrogenase Total Creatine Kinase CK-MB (CK-2) C-Reactive Protein Total Protein Albumin Troponin T HDL Cholesterol Arterial Blood Glucose Urine WBC (Auto) Urine Creatinine Urine Total Protein Coronavirus (PCR) Crossmatch 06/15/20 06/15/20 06/16/20 12:33 17:07 00:22 WBC RBC Hgb Hct MCHC RDW Lymph % (Auto) [place] % (Auto) Eos % (Auto) Lymph # [place] # Lymph # (Auto) [place] # (Auto) Seg Neutrophils % Seg Neuts % (Manual) Lymphocytes % (Manual) Seg Neutrophils # Seg Neutrophils # Man Lymphocytes # (Manual) Monocytes % (Manual) Eosinophils % (Manual) Monocytes # (Manual) Eosinophils # (Manual) D-Dimer Heparin Anti-Xa Level 0.21 L ABG pH POC ABG pCO2 POC ABG pO2 ABG pO2 ABG HCO3 ABG O2 Saturation ABG Base Excess ABG Hemoglobin ABG Oxyhemoglobin VBG pH ABG Sodium ABG Potassium ABG Glucose Oxyhemoglobin Sodium Potassium Chloride Carbon Dioxide BUN Creatinine Glucose POC Glucose 180 H 185 H Lactic Acid Calcium Ferritin AST Alkaline Phosphatase Magnesium Lactate Dehydrogenase Total Creatine Kinase CK-MB (CK-2) C-Reactive Protein Total Protein Albumin Troponin T HDL Cholesterol Arterial Blood Glucose Urine WBC (Auto) Urine Creatinine Urine Total Protein Coronavirus (PCR) Crossmatch 06/16/20 06/16/20 06/16/20 01:45 08:06 09:15 WBC RBC Hgb Hct MCHC RDW Lymph % (Auto) [place] % (Auto) Eos % (Auto) Lymph # [place] # Lymph # (Auto) [place] # (Auto) Seg Neutrophils % Seg Neuts % (Manual) Lymphocytes % (Manual) Seg Neutrophils # Seg Neutrophils # Man Lymphocytes # (Manual) Monocytes % (Manual) Eosinophils % (Manual) Monocytes # (Manual) Eosinophils # (Manual) D-Dimer Heparin Anti-Xa Level ABG pH POC ABG pCO2 POC ABG pO2 ABG pO2 ABG HCO3 ABG O2 Saturation ABG Base Excess ABG Hemoglobin ABG Oxyhemoglobin VBG pH ABG Sodium ABG Potassium ABG Glucose Oxyhemoglobin Sodium Potassium Chloride Carbon Dioxide BUN 49 H Creatinine Glucose 154 H POC Glucose 140 H 171 H Lactic Acid Calcium Ferritin AST Alkaline Phosphatase Magnesium Lactate Dehydrogenase Total Creatine Kinase CK-MB (CK-2) C-Reactive Protein Total Protein Albumin Troponin T HDL Cholesterol Arterial Blood Glucose Urine WBC (Auto) Urine Creatinine Urine Total Protein Coronavirus (PCR) Crossmatch 06/16/20 06/16/20 06/16/20 10:46 12:33 17:54 WBC RBC Hgb Hct MCHC RDW Lymph % (Auto) [place] % (Auto) Eos % (Auto) Lymph # [place] # Lymph # (Auto) [place] # (Auto) Seg Neutrophils % Seg Neuts % (Manual) Lymphocytes % (Manual) Seg Neutrophils # Seg Neutrophils # Man Lymphocytes # (Manual) Monocytes % (Manual) Eosinophils % (Manual) Monocytes # (Manual) Eosinophils # (Manual) D-Dimer Heparin Anti-Xa Level 0.12 L ABG pH POC ABG pCO2 POC ABG pO2 ABG pO2 ABG HCO3 ABG O2 Saturation ABG Base Excess ABG Hemoglobin ABG Oxyhemoglobin VBG pH ABG Sodium ABG Potassium ABG Glucose Oxyhemoglobin Sodium Potassium Chloride Carbon Dioxide BUN Creatinine Glucose POC Glucose 166 H 151 H Lactic Acid Calcium Ferritin AST Alkaline Phosphatase Magnesium Lactate Dehydrogenase Total Creatine Kinase CK-MB (CK-2) C-Reactive Protein Total Protein Albumin Troponin T HDL Cholesterol Arterial Blood Glucose Urine WBC (Auto) Urine Creatinine Urine Total Protein Coronavirus (PCR) Crossmatch 06/16/20 06/17/20 06/17/20 18:47 00:00 02:19 WBC RBC Hgb Hct MCHC RDW Lymph % (Auto) [place] % (Auto) Eos % (Auto) Lymph # [place] # Lymph # (Auto) [place] # (Auto) Seg Neutrophils % Seg Neuts % (Manual) Lymphocytes % (Manual) Seg Neutrophils # Seg Neutrophils # Man Lymphocytes # (Manual) Monocytes % (Manual) Eosinophils % (Manual) Monocytes # (Manual) Eosinophils # (Manual) D-Dimer Heparin Anti-Xa Level 0.73 H 0.77 H ABG pH POC ABG pCO2 POC ABG pO2 ABG pO2 ABG HCO3 ABG O2 Saturation ABG Base Excess ABG Hemoglobin ABG Oxyhemoglobin VBG pH ABG Sodium ABG Potassium ABG Glucose Oxyhemoglobin Sodium Potassium Chloride Carbon Dioxide BUN Creatinine Glucose POC Glucose 139 H Lactic Acid Calcium Ferritin AST Alkaline Phosphatase Magnesium Lactate Dehydrogenase Total Creatine Kinase CK-MB (CK-2) C-Reactive Protein Total Protein Albumin Troponin T HDL Cholesterol Arterial Blood Glucose Urine WBC (Auto) Urine Creatinine Urine Total Protein Coronavirus (PCR) Crossmatch 06/17/20 06/17/20 06/17/20 06:07 11:42 16:43 WBC RBC Hgb Hct MCHC RDW Lymph % (Auto) [place] % (Auto) Eos % (Auto) Lymph # [place] # Lymph # (Auto) [place] # (Auto) Seg Neutrophils % Seg Neuts % (Manual) Lymphocytes % (Manual) Seg Neutrophils # Seg Neutrophils # Man Lymphocytes # (Manual) Monocytes % (Manual) Eosinophils % (Manual) Monocytes # (Manual) Eosinophils # (Manual) D-Dimer Heparin Anti-Xa Level 0.73 H ABG pH POC ABG pCO2 POC ABG pO2 ABG pO2 ABG HCO3 ABG O2 Saturation ABG Base Excess ABG Hemoglobin ABG Oxyhemoglobin VBG pH ABG Sodium ABG Potassium ABG Glucose Oxyhemoglobin Sodium Potassium Chloride Carbon Dioxide BUN Creatinine Glucose POC Glucose 169 H 169 H Lactic Acid Calcium Ferritin AST Alkaline Phosphatase Magnesium Lactate Dehydrogenase Total Creatine Kinase CK-MB (CK-2) C-Reactive Protein Total Protein Albumin Troponin T HDL Cholesterol Arterial Blood Glucose Urine WBC (Auto) Urine Creatinine Urine Total Protein Coronavirus (PCR) Crossmatch 06/17/20 06/17/20 06/17/20 18:18 23:08 23:16 WBC RBC Hgb Hct MCHC RDW Lymph % (Auto) [place] % (Auto) Eos % (Auto) Lymph # [place] # Lymph # (Auto) [place] # (Auto) Seg Neutrophils % Seg Neuts % (Manual) Lymphocytes % (Manual) Seg Neutrophils # Seg Neutrophils # Man Lymphocytes # (Manual) Monocytes % (Manual) Eosinophils % (Manual) Monocytes # (Manual) Eosinophils # (Manual) D-Dimer Heparin Anti-Xa Level 0.71 H ABG pH POC ABG pCO2 POC ABG pO2 ABG pO2 ABG HCO3 ABG O2 Saturation ABG Base Excess ABG Hemoglobin ABG Oxyhemoglobin VBG pH ABG Sodium ABG Potassium ABG Glucose Oxyhemoglobin Sodium Potassium Chloride Carbon Dioxide BUN Creatinine Glucose POC Glucose 159 H 134 H Lactic Acid Calcium Ferritin AST Alkaline Phosphatase Magnesium Lactate Dehydrogenase Total Creatine Kinase CK-MB (CK-2) C-Reactive Protein Total Protein Albumin Troponin T HDL Cholesterol Arterial Blood Glucose Urine WBC (Auto) Urine Creatinine Urine Total Protein Coronavirus (PCR) Crossmatch 06/18/20 06/18/20 06/18/20 04:42 05:52 11:50 WBC RBC Hgb Hct MCHC RDW Lymph % (Auto) [place] % (Auto) Eos % (Auto) Lymph # [place] # Lymph # (Auto) [place] # (Auto) Seg Neutrophils % Seg Neuts % (Manual) Lymphocytes % (Manual) Seg Neutrophils # Seg Neutrophils # Man Lymphocytes # (Manual) Monocytes % (Manual) Eosinophils % (Manual) Monocytes # (Manual) Eosinophils # (Manual) D-Dimer Heparin Anti-Xa Level ABG pH POC ABG pCO2 POC ABG pO2 ABG pO2 ABG HCO3 ABG O2 Saturation ABG Base Excess ABG Hemoglobin ABG Oxyhemoglobin VBG pH ABG Sodium ABG Potassium ABG Glucose Oxyhemoglobin Sodium Potassium Chloride Carbon Dioxide BUN 44 H Creatinine Glucose 115 H POC Glucose 171 H 167 H Lactic Acid Calcium Ferritin AST Alkaline Phosphatase Magnesium Lactate Dehydrogenase Total Creatine Kinase CK-MB (CK-2) C-Reactive Protein Total Protein Albumin Troponin T HDL Cholesterol Arterial Blood Glucose Urine WBC (Auto) Urine Creatinine Urine Total Protein Coronavirus (PCR) Crossmatch 06/18/20 06/19/20 06/19/20 23:46 05:48 07:52 WBC RBC Hgb Hct MCHC RDW Lymph % (Auto) [place] % (Auto) Eos % (Auto) Lymph # [place] # Lymph # (Auto) [place] # (Auto) Seg Neutrophils % Seg Neuts % (Manual) Lymphocytes % (Manual) Seg Neutrophils # Seg Neutrophils # Man Lymphocytes # (Manual) Monocytes % (Manual) Eosinophils % (Manual) Monocytes # (Manual) Eosinophils # (Manual) D-Dimer Heparin Anti-Xa Level ABG pH POC ABG pCO2 POC ABG pO2 ABG pO2 ABG HCO3 ABG O2 Saturation ABG Base Excess ABG Hemoglobin ABG Oxyhemoglobin VBG pH ABG Sodium ABG Potassium ABG Glucose Oxyhemoglobin Sodium Potassium Chloride Carbon Dioxide BUN Creatinine Glucose POC Glucose 130 H 207 H 175 H Lactic Acid Calcium Ferritin AST Alkaline Phosphatase Magnesium Lactate Dehydrogenase Total Creatine Kinase CK-MB (CK-2) C-Reactive Protein Total Protein Albumin Troponin T HDL Cholesterol Arterial Blood Glucose Urine WBC (Auto) Urine Creatinine Urine Total Protein Coronavirus (PCR) Crossmatch 06/19/20 06/19/20 06/20/20 11:42 22:54 05:17 WBC RBC Hgb Hct MCHC RDW Lymph % (Auto) [place] % (Auto) Eos % (Auto) Lymph # [place] # Lymph # (Auto) [place] # (Auto) Seg Neutrophils % Seg Neuts % (Manual) Lymphocytes % (Manual) Seg Neutrophils # Seg Neutrophils # Man Lymphocytes # (Manual) Monocytes % (Manual) Eosinophils % (Manual) Monocytes # (Manual) Eosinophils # (Manual) D-Dimer Heparin Anti-Xa Level ABG pH POC ABG pCO2 POC ABG pO2 ABG pO2 ABG HCO3 ABG O2 Saturation ABG Base Excess ABG Hemoglobin ABG Oxyhemoglobin VBG pH ABG Sodium ABG Potassium ABG Glucose Oxyhemoglobin Sodium Potassium Chloride Carbon Dioxide BUN Creatinine Glucose POC Glucose 166 H 135 H 218 H Lactic Acid Calcium Ferritin AST Alkaline Phosphatase Magnesium Lactate Dehydrogenase Total Creatine Kinase CK-MB (CK-2) C-Reactive Protein Total Protein Albumin Troponin T HDL Cholesterol Arterial Blood Glucose Urine WBC (Auto) Urine Creatinine Urine Total Protein Coronavirus (PCR) Crossmatch 06/20/20 06/20/20 06/20/20 12:04 16:25 16:35 WBC RBC Hgb Hct MCHC RDW Lymph % (Auto) [place] % (Auto) Eos % (Auto) Lymph # [place] # Lymph # (Auto) [place] # (Auto) Seg Neutrophils % Seg Neuts % (Manual) Lymphocytes % (Manual) Seg Neutrophils # Seg Neutrophils # Man Lymphocytes # (Manual) Monocytes % (Manual) Eosinophils % (Manual) Monocytes # (Manual) Eosinophils # (Manual) D-Dimer Heparin Anti-Xa Level ABG pH POC ABG pCO2 POC ABG pO2 ABG pO2 59.6 L ABG HCO3 28.7 H ABG O2 Saturation 93.5 L ABG Base Excess 3.4 H ABG Hemoglobin 7.2 L ABG Oxyhemoglobin VBG pH ABG Sodium ABG Potassium ABG Glucose Oxyhemoglobin 91.3 L Sodium Potassium Chloride Carbon Dioxide BUN Creatinine Glucose POC Glucose 194 H 137 H Lactic Acid Calcium Ferritin AST Alkaline Phosphatase Magnesium Lactate Dehydrogenase Total Creatine Kinase CK-MB (CK-2) C-Reactive Protein Total Protein Albumin Troponin T HDL Cholesterol Arterial Blood Glucose Urine WBC (Auto) Urine Creatinine Urine Total Protein Coronavirus (PCR) Crossmatch 06/20/20 06/21/20 06/21/20 23:59 06:25 12:01 WBC RBC Hgb Hct MCHC RDW Lymph % (Auto) [place] % (Auto) Eos % (Auto) Lymph # [place] # Lymph # (Auto) [place] # (Auto) Seg Neutrophils % Seg Neuts % (Manual) Lymphocytes % (Manual) Seg Neutrophils # Seg Neutrophils # Man Lymphocytes # (Manual) Monocytes % (Manual) Eosinophils % (Manual) Monocytes # (Manual) Eosinophils # (Manual) D-Dimer Heparin Anti-Xa Level ABG pH POC ABG pCO2 POC ABG pO2 ABG pO2 ABG HCO3 ABG O2 Saturation ABG Base Excess ABG Hemoglobin ABG Oxyhemoglobin VBG pH ABG Sodium ABG Potassium ABG Glucose Oxyhemoglobin Sodium Potassium Chloride Carbon Dioxide BUN Creatinine Glucose POC Glucose 156 H 177 H 195 H Lactic Acid Calcium Ferritin AST Alkaline Phosphatase Magnesium Lactate Dehydrogenase Total Creatine Kinase CK-MB (CK-2) C-Reactive Protein Total Protein Albumin Troponin T HDL Cholesterol Arterial Blood Glucose Urine WBC (Auto) Urine Creatinine Urine Total Protein Coronavirus (PCR) Crossmatch 06/21/20 06/21/20 06/22/20 17:04 21:51 05:06 WBC RBC Hgb Hct MCHC RDW Lymph % (Auto) [place] % (Auto) Eos % (Auto) Lymph # [place] # Lymph # (Auto) [place] # (Auto) Seg Neutrophils % Seg Neuts % (Manual) Lymphocytes % (Manual) Seg Neutrophils # Seg Neutrophils # Man Lymphocytes # (Manual) Monocytes % (Manual) Eosinophils % (Manual) Monocytes # (Manual) Eosinophils # (Manual) D-Dimer Heparin Anti-Xa Level ABG pH POC ABG pCO2 POC ABG pO2 ABG pO2 ABG HCO3 ABG O2 Saturation ABG Base Excess ABG Hemoglobin ABG Oxyhemoglobin VBG pH ABG Sodium ABG Potassium ABG Glucose Oxyhemoglobin Sodium Potassium Chloride Carbon Dioxide BUN Creatinine Glucose POC Glucose 156 H 154 H 167 H Lactic Acid Calcium Ferritin AST Alkaline Phosphatase Magnesium Lactate Dehydrogenase Total Creatine Kinase CK-MB (CK-2) C-Reactive Protein Total Protein Albumin Troponin T HDL Cholesterol Arterial Blood Glucose Urine WBC (Auto) Urine Creatinine Urine Total Protein Coronavirus (PCR) Crossmatch 06/22/20 06/22/20 06/22/20 11:20 15:27 16:58 WBC RBC Hgb Hct MCHC RDW Lymph % (Auto) [place] % (Auto) Eos % (Auto) Lymph # [place] # Lymph # (Auto) [place] # (Auto) Seg Neutrophils % Seg Neuts % (Manual) Lymphocytes % (Manual) Seg Neutrophils # Seg Neutrophils # Man Lymphocytes # (Manual) Monocytes % (Manual) Eosinophils % (Manual) Monocytes # (Manual) Eosinophils # (Manual) D-Dimer Heparin Anti-Xa Level ABG pH 7.206 L POC ABG pCO2 79.9 H POC ABG pO2 ABG pO2 ABG HCO3 ABG O2 Saturation ABG Base Excess ABG Hemoglobin 8.3 L ABG Oxyhemoglobin VBG pH ABG Sodium ABG Potassium ABG Glucose Oxyhemoglobin Sodium Potassium Chloride Carbon Dioxide BUN Creatinine Glucose POC Glucose 181 H 230 H Lactic Acid Calcium Ferritin AST Alkaline Phosphatase Magnesium Lactate Dehydrogenase Total Creatine Kinase CK-MB (CK-2) C-Reactive Protein Total Protein Albumin Troponin T HDL Cholesterol Arterial Blood Glucose Urine WBC (Auto) Urine Creatinine Urine Total Protein Coronavirus (PCR) Crossmatch 06/22/20 06/23/20 06/23/20 22:26 05:49 05:49 WBC RBC 2.58 L Hgb 7.4 L Hct 23.2 L MCHC RDW 17.0 H Lymph % (Auto) [place] % (Auto) 11.2 H Eos % (Auto) Lymph # 1.0 L [place] # Lymph # (Auto) [place] # (Auto) Seg Neutrophils % Seg Neuts % (Manual) Lymphocytes % (Manual) Seg Neutrophils # Seg Neutrophils # Man Lymphocytes # (Manual) Monocytes % (Manual) Eosinophils % (Manual) Monocytes # (Manual) Eosinophils # (Manual) D-Dimer Heparin Anti-Xa Level ABG pH POC ABG pCO2 POC ABG pO2 ABG pO2 ABG HCO3 ABG O2 Saturation ABG Base Excess ABG Hemoglobin ABG Oxyhemoglobin VBG pH ABG Sodium ABG Potassium ABG Glucose Oxyhemoglobin Sodium Potassium Chloride Carbon Dioxide BUN 68 H Creatinine 2.4 H Glucose 198 H POC Glucose 195 H Lactic Acid Calcium Ferritin AST Alkaline Phosphatase Magnesium Lactate Dehydrogenase Total Creatine Kinase CK-MB (CK-2) C-Reactive Protein Total Protein Albumin Troponin T HDL Cholesterol Arterial Blood Glucose Urine WBC (Auto) Urine Creatinine Urine Total Protein Coronavirus (PCR) Crossmatch 06/23/20 06/23/20 06/23/20 05:50 12:29 12:34 WBC RBC Hgb Hct MCHC RDW Lymph % (Auto) [place] % (Auto) Eos % (Auto) Lymph # [place] # Lymph # (Auto) [place] # (Auto) Seg Neutrophils % Seg Neuts % (Manual) Lymphocytes % (Manual) Seg Neutrophils # Seg Neutrophils # Man Lymphocytes # (Manual) Monocytes % (Manual) Eosinophils % (Manual) Monocytes # (Manual) Eosinophils # (Manual) D-Dimer Heparin Anti-Xa Level ABG pH POC ABG pCO2 54.7 H POC ABG pO2 68.8 L ABG pO2 ABG HCO3 ABG O2 Saturation ABG Base Excess ABG Hemoglobin 9.8 L ABG Oxyhemoglobin 92.6 L VBG pH ABG Sodium ABG Potassium ABG Glucose Oxyhemoglobin Sodium Potassium Chloride Carbon Dioxide BUN Creatinine Glucose POC Glucose 202 H 218 H Lactic Acid Calcium Ferritin AST Alkaline Phosphatase Magnesium Lactate Dehydrogenase Total Creatine Kinase CK-MB (CK-2) C-Reactive Protein Total Protein Albumin Troponin T HDL Cholesterol Arterial Blood Glucose Urine WBC (Auto) Urine Creatinine Urine Total Protein Coronavirus (PCR) Crossmatch 06/23/20 06/23/20 06/24/20 16:02 22:22 01:06 WBC RBC Hgb Hct MCHC RDW Lymph % (Auto) [place] % (Auto) Eos % (Auto) Lymph # [place] # Lymph # (Auto) [place] # (Auto) Seg Neutrophils % Seg Neuts % (Manual) Lymphocytes % (Manual) Seg Neutrophils # Seg Neutrophils # Man Lymphocytes # (Manual) Monocytes % (Manual) Eosinophils % (Manual) Monocytes # (Manual) Eosinophils # (Manual) D-Dimer Heparin Anti-Xa Level ABG pH POC ABG pCO2 POC ABG pO2 ABG pO2 ABG HCO3 ABG O2 Saturation ABG Base Excess ABG Hemoglobin ABG Oxyhemoglobin VBG pH ABG Sodium ABG Potassium ABG Glucose Oxyhemoglobin Sodium Potassium Chloride Carbon Dioxide BUN Creatinine Glucose POC Glucose 190 H 166 H 171 H Lactic Acid Calcium Ferritin AST Alkaline Phosphatase Magnesium Lactate Dehydrogenase Total Creatine Kinase CK-MB (CK-2) C-Reactive Protein Total Protein Albumin Troponin T HDL Cholesterol Arterial Blood Glucose Urine WBC (Auto) Urine Creatinine Urine Total Protein Coronavirus (PCR) Crossmatch 06/24/20 06/24/20 06/24/20 04:48 05:35 11:48 WBC RBC Hgb Hct MCHC RDW Lymph % (Auto) [place] % (Auto) Eos % (Auto) Lymph # [place] # Lymph # (Auto) [place] # (Auto) Seg Neutrophils % Seg Neuts % (Manual) Lymphocytes % (Manual) Seg Neutrophils # Seg Neutrophils # Man Lymphocytes # (Manual) Monocytes % (Manual) Eosinophils % (Manual) Monocytes # (Manual) Eosinophils # (Manual) D-Dimer Heparin Anti-Xa Level ABG pH POC ABG pCO2 POC ABG pO2 ABG pO2 ABG HCO3 ABG O2 Saturation ABG Base Excess ABG Hemoglobin ABG Oxyhemoglobin VBG pH ABG Sodium ABG Potassium ABG Glucose Oxyhemoglobin Sodium Potassium Chloride Carbon Dioxide BUN 75 H Creatinine 2.6 H Glucose 179 H POC Glucose 172 H 153 H Lactic Acid Calcium Ferritin AST Alkaline Phosphatase Magnesium Lactate Dehydrogenase Total Creatine Kinase CK-MB (CK-2) C-Reactive Protein Total Protein Albumin Troponin T HDL Cholesterol Arterial Blood Glucose Urine WBC (Auto) Urine Creatinine Urine Total Protein Coronavirus (PCR) Crossmatch 06/24/20 06/24/20 06/25/20 16:38 21:52 12:00 WBC RBC Hgb Hct MCHC RDW Lymph % (Auto) [place] % (Auto) Eos % (Auto) Lymph # [place] # Lymph # (Auto) [place] # (Auto) Seg Neutrophils % Seg Neuts % (Manual) Lymphocytes % (Manual) Seg Neutrophils # Seg Neutrophils # Man Lymphocytes # (Manual) Monocytes % (Manual) Eosinophils % (Manual) Monocytes # (Manual) Eosinophils # (Manual) D-Dimer Heparin Anti-Xa Level ABG pH POC ABG pCO2 POC ABG pO2 ABG pO2 ABG HCO3 ABG O2 Saturation ABG Base Excess ABG Hemoglobin ABG Oxyhemoglobin VBG pH ABG Sodium ABG Potassium ABG Glucose Oxyhemoglobin Sodium Potassium Chloride Carbon Dioxide BUN Creatinine Glucose POC Glucose 123 H 115 H 203 H Lactic Acid Calcium Ferritin AST Alkaline Phosphatase Magnesium Lactate Dehydrogenase Total Creatine Kinase CK-MB (CK-2) C-Reactive Protein Total Protein Albumin Troponin T HDL Cholesterol Arterial Blood Glucose Urine WBC (Auto) Urine Creatinine Urine Total Protein Coronavirus (PCR) Crossmatch 06/25/20 06/25/20 06/25/20 15:43 16:37 23:02 WBC RBC Hgb Hct MCHC RDW Lymph % (Auto) [place] % (Auto) Eos % (Auto) Lymph # [place] # Lymph # (Auto) [place] # (Auto) Seg Neutrophils % Seg Neuts % (Manual) Lymphocytes % (Manual) Seg Neutrophils # Seg Neutrophils # Man Lymphocytes # (Manual) Monocytes % (Manual) Eosinophils % (Manual) Monocytes # (Manual) Eosinophils # (Manual) D-Dimer Heparin Anti-Xa Level ABG pH POC ABG pCO2 POC ABG pO2 ABG pO2 ABG HCO3 ABG O2 Saturation ABG Base Excess ABG Hemoglobin ABG Oxyhemoglobin VBG pH ABG Sodium ABG Potassium ABG Glucose Oxyhemoglobin Sodium Potassium Chloride Carbon Dioxide BUN 71 H Creatinine 1.8 H Glucose 170 H POC Glucose 191 H 126 H Lactic Acid Calcium 8.2 L Ferritin AST Alkaline Phosphatase Magnesium Lactate Dehydrogenase Total Creatine Kinase CK-MB (CK-2) C-Reactive Protein Total Protein Albumin Troponin T HDL Cholesterol Arterial Blood Glucose Urine WBC (Auto) Urine Creatinine Urine Total Protein Coronavirus (PCR) Crossmatch 06/26/20 06/26/20 06/26/20 06:34 06:34 09:27 WBC RBC 2.41 L Hgb 6.9 L Hct 21.5 L MCHC RDW 16.7 H Lymph % (Auto) 10.9 L [place] % (Auto) 9.6 H Eos % (Auto) Lymph # 0.7 L [place] # Lymph # (Auto) [place] # (Auto) Seg Neutrophils % 75.4 H Seg Neuts % (Manual) Lymphocytes % (Manual) Seg Neutrophils # Seg Neutrophils # Man Lymphocytes # (Manual) Monocytes % (Manual) Eosinophils % (Manual) Monocytes # (Manual) Eosinophils # (Manual) D-Dimer Heparin Anti-Xa Level ABG pH POC ABG pCO2 POC ABG pO2 ABG pO2 ABG HCO3 ABG O2 Saturation ABG Base Excess ABG Hemoglobin ABG Oxyhemoglobin VBG pH ABG Sodium ABG Potassium ABG Glucose Oxyhemoglobin Sodium Potassium Chloride Carbon Dioxide BUN 77 H Creatinine 1.9 H Glucose 190 H POC Glucose Lactic Acid Calcium Ferritin AST Alkaline Phosphatase Magnesium Lactate Dehydrogenase Total Creatine Kinase CK-MB (CK-2) C-Reactive Protein Total Protein Albumin Troponin T HDL Cholesterol Arterial Blood Glucose Urine WBC (Auto) Urine Creatinine Urine Total Protein Coronavirus (PCR) Crossmatch See Detail 06/26/20 06/26/20 06/26/20 12:15 16:28 17:28 WBC RBC Hgb Hct MCHC RDW Lymph % (Auto) [place] % (Auto) Eos % (Auto) Lymph # [place] # Lymph # (Auto) [place] # (Auto) Seg Neutrophils % Seg Neuts % (Manual) Lymphocytes % (Manual) Seg Neutrophils # Seg Neutrophils # Man Lymphocytes # (Manual) Monocytes % (Manual) Eosinophils % (Manual) Monocytes # (Manual) Eosinophils # (Manual) D-Dimer Heparin Anti-Xa Level ABG pH POC ABG pCO2 POC ABG pO2 ABG pO2 ABG HCO3 ABG O2 Saturation ABG Base Excess ABG Hemoglobin ABG Oxyhemoglobin VBG pH ABG Sodium ABG Potassium ABG Glucose Oxyhemoglobin Sodium Potassium Chloride Carbon Dioxide BUN Creatinine Glucose POC Glucose 187 H 149 H 189 H Lactic Acid Calcium Ferritin AST Alkaline Phosphatase Magnesium Lactate Dehydrogenase Total Creatine Kinase CK-MB (CK-2) C-Reactive Protein Total Protein Albumin Troponin T HDL Cholesterol Arterial Blood Glucose Urine WBC (Auto) Urine Creatinine Urine Total Protein Coronavirus (PCR) Crossmatch 06/26/20 06/26/20 06/26/20 18:30 18:30 18:30 WBC RBC 2.87 L Hgb 8.2 L Hct 25.9 L MCHC RDW 17.8 H Lymph % (Auto) [place] % (Auto) Eos % (Auto) Lymph # [place] # Lymph # (Auto) [place] # (Auto) Seg Neutrophils % Seg Neuts % (Manual) 83.0 H Lymphocytes % (Manual) 8.0 L Seg Neutrophils # Seg Neutrophils # Man Lymphocytes # (Manual) 0.6 L Monocytes % (Manual) Eosinophils % (Manual) Monocytes # (Manual) Eosinophils # (Manual) D-Dimer Heparin Anti-Xa Level ABG pH POC ABG pCO2 POC ABG pO2 ABG pO2 ABG HCO3 ABG O2 Saturation ABG Base Excess ABG Hemoglobin ABG Oxyhemoglobin VBG pH ABG Sodium ABG Potassium ABG Glucose Oxyhemoglobin Sodium Potassium Chloride Carbon Dioxide BUN 80 H Creatinine 2.1 H Glucose 260 H POC Glucose Lactic Acid 4.30 H* Calcium 8.3 L Ferritin AST Alkaline Phosphatase Magnesium Lactate Dehydrogenase Total Creatine Kinase CK-MB (CK-2) C-Reactive Protein Total Protein Albumin Troponin T HDL Cholesterol Arterial Blood Glucose Urine WBC (Auto) Urine Creatinine Urine Total Protein Coronavirus (PCR) Crossmatch 06/26/20 06/27/20 06/27/20 18:50 01:00 04:29 WBC RBC Hgb Hct MCHC RDW Lymph % (Auto) [place] % (Auto) Eos % (Auto) Lymph # [place] # Lymph # (Auto) [place] # (Auto) Seg Neutrophils % Seg Neuts % (Manual) Lymphocytes % (Manual) Seg Neutrophils # Seg Neutrophils # Man Lymphocytes # (Manual) Monocytes % (Manual) Eosinophils % (Manual) Monocytes # (Manual) Eosinophils # (Manual) D-Dimer Heparin Anti-Xa Level ABG pH 7.296 L POC ABG pCO2 POC ABG pO2 ABG pO2 116.5 H 200.5 H ABG HCO3 28.4 H ABG O2 Saturation 99.3 H ABG Base Excess 3.7 H ABG Hemoglobin 5.6 L ABG Oxyhemoglobin VBG pH ABG Sodium ABG Potassium ABG Glucose Oxyhemoglobin Sodium Potassium Chloride Carbon Dioxide BUN Creatinine Glucose POC Glucose 123 H Lactic Acid Calcium Ferritin AST Alkaline Phosphatase Magnesium Lactate Dehydrogenase Total Creatine Kinase CK-MB (CK-2) C-Reactive Protein Total Protein Albumin Troponin T HDL Cholesterol Arterial Blood Glucose Urine WBC (Auto) Urine Creatinine Urine Total Protein Coronavirus (PCR) Crossmatch 06/27/20 06/27/20 06/27/20 05:00 05:00 05:00 WBC RBC 2.75 L Hgb 7.9 L Hct 24.3 L MCHC RDW 17.1 H Lymph % (Auto) 8.5 L [place] % (Auto) 12.6 H Eos % (Auto) Lymph # 0.7 L [place] # 1.0 H Lymph # (Auto) [place] # (Auto) Seg Neutrophils % 77.5 H Seg Neuts % (Manual) Lymphocytes % (Manual) Seg Neutrophils # Seg Neutrophils # Man Lymphocytes # (Manual) Monocytes % (Manual) Eosinophils % (Manual) Monocytes # (Manual) Eosinophils # (Manual) D-Dimer Heparin Anti-Xa Level ABG pH POC ABG pCO2 POC ABG pO2 ABG pO2 ABG HCO3 ABG O2 Saturation ABG Base Excess ABG Hemoglobin ABG Oxyhemoglobin VBG pH ABG Sodium ABG Potassium ABG Glucose Oxyhemoglobin Sodium Potassium Chloride Carbon Dioxide BUN 80 H Creatinine 2.0 H Glucose 129 H POC Glucose Lactic Acid 0.60 L Calcium 7.9 L Ferritin AST Alkaline Phosphatase Magnesium Lactate Dehydrogenase Total Creatine Kinase CK-MB (CK-2) C-Reactive Protein Total Protein Albumin Troponin T HDL Cholesterol Arterial Blood Glucose Urine WBC (Auto) Urine Creatinine Urine Total Protein Coronavirus (PCR) Crossmatch 06/27/20 06/27/20 06/27/20 05:23 13:46 17:25 WBC RBC Hgb Hct MCHC RDW Lymph % (Auto) [place] % (Auto) Eos % (Auto) Lymph # [place] # Lymph # (Auto) [place] # (Auto) Seg Neutrophils % Seg Neuts % (Manual) Lymphocytes % (Manual) Seg Neutrophils # Seg Neutrophils # Man Lymphocytes # (Manual) Monocytes % (Manual) Eosinophils % (Manual) Monocytes # (Manual) Eosinophils # (Manual) D-Dimer Heparin Anti-Xa Level ABG pH POC ABG pCO2 POC ABG pO2 ABG pO2 ABG HCO3 ABG O2 Saturation ABG Base Excess ABG Hemoglobin ABG Oxyhemoglobin VBG pH ABG Sodium ABG Potassium ABG Glucose Oxyhemoglobin Sodium Potassium Chloride Carbon Dioxide BUN Creatinine Glucose POC Glucose 109 H 158 H 162 H Lactic Acid Calcium Ferritin AST Alkaline Phosphatase Magnesium Lactate Dehydrogenase Total Creatine Kinase CK-MB (CK-2) C-Reactive Protein Total Protein Albumin Troponin T HDL Cholesterol Arterial Blood Glucose Urine WBC (Auto) Urine Creatinine Urine Total Protein Coronavirus (PCR) Crossmatch 06/27/20 06/27/20 06/28/20 18:43 23:46 04:05 WBC RBC Hgb 7.7 L Hct 22.1 L MCHC RDW Lymph % (Auto) [place] % (Auto) Eos % (Auto) Lymph # [place] # Lymph # (Auto) [place] # (Auto) Seg Neutrophils % Seg Neuts % (Manual) Lymphocytes % (Manual) Seg Neutrophils # Seg Neutrophils # Man Lymphocytes # (Manual) Monocytes % (Manual) Eosinophils % (Manual) Monocytes # (Manual) Eosinophils # (Manual) D-Dimer Heparin Anti-Xa Level ABG pH POC ABG pCO2 POC ABG pO2 ABG pO2 102.7 H ABG HCO3 28.7 H ABG O2 Saturation ABG Base Excess 3.7 H ABG Hemoglobin ABG Oxyhemoglobin VBG pH ABG Sodium ABG Potassium ABG Glucose Oxyhemoglobin Sodium Potassium Chloride Carbon Dioxide BUN Creatinine Glucose POC Glucose 142 H Lactic Acid Calcium Ferritin AST Alkaline Phosphatase Magnesium Lactate Dehydrogenase Total Creatine Kinase CK-MB (CK-2) C-Reactive Protein Total Protein Albumin Troponin T HDL Cholesterol Arterial Blood Glucose Urine WBC (Auto) Urine Creatinine Urine Total Protein Coronavirus (PCR) Crossmatch 06/28/20 06/28/20 06/28/20 09:47 09:47 12:02 WBC RBC 2.53 L Hgb 7.4 L Hct 22.2 L MCHC RDW 16.8 H Lymph % (Auto) [place] % (Auto) 13.5 H Eos % (Auto) Lymph # 1.1 L [place] # 1.0 H Lymph # (Auto) [place] # (Auto) Seg Neutrophils % Seg Neuts % (Manual) Lymphocytes % (Manual) Seg Neutrophils # Seg Neutrophils # Man Lymphocytes # (Manual) Monocytes % (Manual) Eosinophils % (Manual) Monocytes # (Manual) Eosinophils # (Manual) D-Dimer Heparin Anti-Xa Level ABG pH POC ABG pCO2 POC ABG pO2 ABG pO2 ABG HCO3 ABG O2 Saturation ABG Base Excess ABG Hemoglobin ABG Oxyhemoglobin VBG pH ABG Sodium ABG Potassium ABG Glucose Oxyhemoglobin Sodium Potassium Chloride Carbon Dioxide BUN 80 H Creatinine 1.5 H Glucose 139 H POC Glucose 169 H Lactic Acid Calcium 7.9 L Ferritin AST Alkaline Phosphatase Magnesium Lactate Dehydrogenase Total Creatine Kinase CK-MB (CK-2) C-Reactive Protein Total Protein 5.0 L Albumin 2.1 L Troponin T HDL Cholesterol Arterial Blood Glucose Urine WBC (Auto) Urine Creatinine Urine Total Protein Coronavirus (PCR) Crossmatch 06/28/20 06/28/20 06/28/20 12:30 12:30 17:24 WBC RBC 2.38 L Hgb 7.3 L Hct 20.9 L MCHC 35 H RDW 16.7 H Lymph % (Auto) [place] % (Auto) Eos % (Auto) Lymph # [place] # Lymph # (Auto) [place] # (Auto) Seg Neutrophils % Seg Neuts % (Manual) Lymphocytes % (Manual) Seg Neutrophils # Seg Neutrophils # Man Lymphocytes # (Manual) Monocytes % (Manual) Eosinophils % (Manual) Monocytes # (Manual) Eosinophils # (Manual) D-Dimer Heparin Anti-Xa Level ABG pH POC ABG pCO2 POC ABG pO2 ABG pO2 ABG HCO3 ABG O2 Saturation ABG Base Excess ABG Hemoglobin ABG Oxyhemoglobin VBG pH ABG Sodium ABG Potassium ABG Glucose Oxyhemoglobin Sodium Potassium Chloride Carbon Dioxide BUN 74 H Creatinine 1.5 H Glucose 143 H POC Glucose 173 H Lactic Acid Calcium 7.5 L Ferritin AST Alkaline Phosphatase Magnesium Lactate Dehydrogenase Total Creatine Kinase CK-MB (CK-2) C-Reactive Protein Total Protein Albumin Troponin T HDL Cholesterol Arterial Blood Glucose Urine WBC (Auto) Urine Creatinine Urine Total Protein Coronavirus (PCR) Crossmatch 06/29/20 06/29/20 06/29/20 00:02 03:54 04:38 WBC RBC 2.55 L Hgb 7.3 L Hct 22.4 L MCHC RDW 16.4 H Lymph % (Auto) 13.3 L [place] % (Auto) 12.5 H Eos % (Auto) Lymph # 1.1 L [place] # 1.0 H Lymph # (Auto) [place] # (Auto) Seg Neutrophils % Seg Neuts % (Manual) Lymphocytes % (Manual) Seg Neutrophils # Seg Neutrophils # Man Lymphocytes # (Manual) Monocytes % (Manual) Eosinophils % (Manual) Monocytes # (Manual) Eosinophils # (Manual) D-Dimer Heparin Anti-Xa Level ABG pH POC ABG pCO2 POC ABG pO2 ABG pO2 ABG HCO3 26.9 H ABG O2 Saturation ABG Base Excess ABG Hemoglobin 6.9 L ABG Oxyhemoglobin VBG pH ABG Sodium ABG Potassium ABG Glucose Oxyhemoglobin Sodium Potassium Chloride Carbon Dioxide BUN Creatinine Glucose POC Glucose 142 H Lactic Acid Calcium Ferritin AST Alkaline Phosphatase Magnesium Lactate Dehydrogenase Total Creatine Kinase CK-MB (CK-2) C-Reactive Protein Total Protein Albumin Troponin T HDL Cholesterol Arterial Blood Glucose Urine WBC (Auto) Urine Creatinine Urine Total Protein Coronavirus (PCR) Crossmatch 06/29/20 06/29/20 06/29/20 04:38 05:38 12:25 WBC RBC Hgb Hct MCHC RDW Lymph % (Auto) [place] % (Auto) Eos % (Auto) Lymph # [place] # Lymph # (Auto) [place] # (Auto) Seg Neutrophils % Seg Neuts % (Manual) Lymphocytes % (Manual) Seg Neutrophils # Seg Neutrophils # Man Lymphocytes # (Manual) Monocytes % (Manual) Eosinophils % (Manual) Monocytes # (Manual) Eosinophils # (Manual) D-Dimer Heparin Anti-Xa Level ABG pH POC ABG pCO2 POC ABG pO2 ABG pO2 ABG HCO3 ABG O2 Saturation ABG Base Excess ABG Hemoglobin ABG Oxyhemoglobin VBG pH ABG Sodium ABG Potassium ABG Glucose Oxyhemoglobin Sodium Potassium Chloride 107.8 H Carbon Dioxide BUN 72 H Creatinine 1.4 H Glucose 127 H POC Glucose 122 H 138 H Lactic Acid Calcium 7.4 L Ferritin AST Alkaline Phosphatase Magnesium Lactate Dehydrogenase Total Creatine Kinase CK-MB (CK-2) C-Reactive Protein Total Protein Albumin Troponin T HDL Cholesterol Arterial Blood Glucose Urine WBC (Auto) Urine Creatinine Urine Total Protein Coronavirus (PCR) Crossmatch 06/29/20 06/29/20 06/29/20 14:45 14:45 14:45 WBC RBC Hgb Hct MCHC RDW Lymph % (Auto) [place] % (Auto) Eos % (Auto) Lymph # [place] # Lymph # (Auto) [place] # (Auto) Seg Neutrophils % Seg Neuts % (Manual) Lymphocytes % (Manual) Seg Neutrophils # Seg Neutrophils # Man Lymphocytes # (Manual) Monocytes % (Manual) Eosinophils % (Manual) Monocytes # (Manual) Eosinophils # (Manual) D-Dimer 2310.15 H Heparin Anti-Xa Level ABG pH POC ABG pCO2 POC ABG pO2 ABG pO2 ABG HCO3 ABG O2 Saturation ABG Base Excess ABG Hemoglobin ABG Oxyhemoglobin VBG pH ABG Sodium ABG Potassium ABG Glucose Oxyhemoglobin Sodium Potassium Chloride Carbon Dioxide BUN Creatinine Glucose POC Glucose Lactic Acid Calcium Ferritin 223.6 H AST Alkaline Phosphatase Magnesium Lactate Dehydrogenase 367 H Total Creatine Kinase CK-MB (CK-2) C-Reactive Protein 3.60 H Total Protein Albumin Troponin T HDL Cholesterol Arterial Blood Glucose Urine WBC (Auto) Urine Creatinine Urine Total Protein Coronavirus (PCR) Crossmatch 06/29/20 06/29/20 06/29/20 18:27 23:35 Unknown WBC RBC Hgb Hct MCHC RDW Lymph % (Auto) [place] % (Auto) Eos % (Auto) Lymph # [place] # Lymph # (Auto) [place] # (Auto) Seg Neutrophils % Seg Neuts % (Manual) Lymphocytes % (Manual) Seg Neutrophils # Seg Neutrophils # Man Lymphocytes # (Manual) Monocytes % (Manual) Eosinophils % (Manual) Monocytes # (Manual) Eosinophils # (Manual) D-Dimer Heparin Anti-Xa Level ABG pH POC ABG pCO2 POC ABG pO2 ABG pO2 ABG HCO3 ABG O2 Saturation ABG Base Excess ABG Hemoglobin ABG Oxyhemoglobin VBG pH ABG Sodium ABG Potassium ABG Glucose Oxyhemoglobin Sodium Potassium Chloride Carbon Dioxide BUN Creatinine Glucose POC Glucose 112 H 140 H Lactic Acid Calcium Ferritin AST Alkaline Phosphatase Magnesium Lactate Dehydrogenase Total Creatine Kinase CK-MB (CK-2) C-Reactive Protein Total Protein Albumin Troponin T HDL Cholesterol Arterial Blood Glucose Urine WBC (Auto) Urine Creatinine Urine Total Protein Coronavirus (PCR) Positive A Crossmatch 06/30/20 06/30/20 06/30/20 04:10 04:10 06:09 WBC RBC 2.44 L Hgb 7.1 L Hct 21.5 L MCHC RDW 16.6 H Lymph % (Auto) 11.0 L [place] % (Auto) 10.8 H Eos % (Auto) Lymph # 0.9 L [place] # 0.9 H Lymph # (Auto) [place] # (Auto) Seg Neutrophils % 73.7 H Seg Neuts % (Manual) Lymphocytes % (Manual) Seg Neutrophils # Seg Neutrophils # Man Lymphocytes # (Manual) Monocytes % (Manual) Eosinophils % (Manual) Monocytes # (Manual) Eosinophils # (Manual) D-Dimer Heparin Anti-Xa Level ABG pH POC ABG pCO2 POC ABG pO2 ABG pO2 ABG HCO3 ABG O2 Saturation ABG Base Excess ABG Hemoglobin ABG Oxyhemoglobin VBG pH ABG Sodium ABG Potassium ABG Glucose Oxyhemoglobin Sodium Potassium Chloride 109.1 H Carbon Dioxide BUN 74 H Creatinine 1.3 H Glucose 191 H POC Glucose 187 H Lactic Acid Calcium 7.8 L Ferritin AST Alkaline Phosphatase Magnesium Lactate Dehydrogenase Total Creatine Kinase CK-MB (CK-2) C-Reactive Protein Total Protein Albumin Troponin T HDL Cholesterol Arterial Blood Glucose Urine WBC (Auto) Urine Creatinine Urine Total Protein Coronavirus (PCR) Crossmatch 06/30/20 06/30/20 06/30/20 12:04 17:43 23:41 WBC RBC Hgb Hct MCHC RDW Lymph % (Auto) [place] % (Auto) Eos % (Auto) Lymph # [place] # Lymph # (Auto) [place] # (Auto) Seg Neutrophils % Seg Neuts % (Manual) Lymphocytes % (Manual) Seg Neutrophils # Seg Neutrophils # Man Lymphocytes # (Manual) Monocytes % (Manual) Eosinophils % (Manual) Monocytes # (Manual) Eosinophils # (Manual) D-Dimer Heparin Anti-Xa Level ABG pH POC ABG pCO2 POC ABG pO2 ABG pO2 ABG HCO3 ABG O2 Saturation ABG Base Excess ABG Hemoglobin ABG Oxyhemoglobin VBG pH ABG Sodium ABG Potassium ABG Glucose Oxyhemoglobin Sodium Potassium Chloride Carbon Dioxide BUN Creatinine Glucose POC Glucose 112 H 177 H 143 H Lactic Acid Calcium Ferritin AST Alkaline Phosphatase Magnesium Lactate Dehydrogenase Total Creatine Kinase CK-MB (CK-2) C-Reactive Protein Total Protein Albumin Troponin T HDL Cholesterol Arterial Blood Glucose Urine WBC (Auto) Urine Creatinine Urine Total Protein Coronavirus (PCR) Crossmatch 07/01/20 07/01/20 07/01/20 05:02 05:52 06:01 WBC 12.6 H RBC 2.95 L Hgb 8.2 L Hct 26.0 L MCHC RDW 16.9 H Lymph % (Auto) [place] % (Auto) Eos % (Auto) Lymph # [place] # Lymph # (Auto) [place] # (Auto) Seg Neutrophils % Seg Neuts % (Manual) Lymphocytes % (Manual) Seg Neutrophils # Seg Neutrophils # Man 8.6 H Lymphocytes # (Manual) Monocytes % (Manual) Eosinophils % (Manual) 5.0 H Monocytes # (Manual) Eosinophils # (Manual) 0.6 H D-Dimer Heparin Anti-Xa Level ABG pH POC ABG pCO2 POC ABG pO2 ABG pO2 ABG HCO3 ABG O2 Saturation ABG Base Excess ABG Hemoglobin 8.2 L ABG Oxyhemoglobin VBG pH ABG Sodium ABG Potassium ABG Glucose Oxyhemoglobin Sodium Potassium Chloride Carbon Dioxide BUN Creatinine Glucose POC Glucose 129 H Lactic Acid Calcium Ferritin AST Alkaline Phosphatase Magnesium Lactate Dehydrogenase Total Creatine Kinase CK-MB (CK-2) C-Reactive Protein Total Protein Albumin Troponin T HDL Cholesterol Arterial Blood Glucose Urine WBC (Auto) Urine Creatinine Urine Total Protein Coronavirus (PCR) Crossmatch 07/01/20 07/01/20 07/01/20 06:01 06:01 06:08 WBC RBC Hgb Hct MCHC RDW Lymph % (Auto) [place] % (Auto) Eos % (Auto) Lymph # [place] # Lymph # (Auto) [place] # (Auto) Seg Neutrophils % Seg Neuts % (Manual) Lymphocytes % (Manual) Seg Neutrophils # Seg Neutrophils # Man Lymphocytes # (Manual) Monocytes % (Manual) Eosinophils % (Manual) Monocytes # (Manual) Eosinophils # (Manual) D-Dimer Heparin Anti-Xa Level ABG pH POC ABG pCO2 POC ABG pO2 ABG pO2 ABG HCO3 ABG O2 Saturation ABG Base Excess ABG Hemoglobin ABG Oxyhemoglobin VBG pH ABG Sodium ABG Potassium ABG Glucose Oxyhemoglobin Sodium 147 H Potassium Chloride 108.0 H Carbon Dioxide BUN 71 H Creatinine 1.3 H Glucose 193 H POC Glucose 192 H Lactic Acid Calcium 8.1 L Ferritin AST Alkaline Phosphatase Magnesium Lactate Dehydrogenase Total Creatine Kinase 300 H CK-MB (CK-2) C-Reactive Protein Total Protein Albumin Troponin T 0.067 H HDL Cholesterol 61 H Arterial Blood Glucose Urine WBC (Auto) Urine Creatinine Urine Total Protein Coronavirus (PCR) Crossmatch 07/01/20 07/01/20 07/02/20 12:23 17:40 00:18 WBC RBC Hgb Hct MCHC RDW Lymph % (Auto) [place] % (Auto) Eos % (Auto) Lymph # [place] # Lymph # (Auto) [place] # (Auto) Seg Neutrophils % Seg Neuts % (Manual) Lymphocytes % (Manual) Seg Neutrophils # Seg Neutrophils # Man Lymphocytes # (Manual) Monocytes % (Manual) Eosinophils % (Manual) Monocytes # (Manual) Eosinophils # (Manual) D-Dimer Heparin Anti-Xa Level ABG pH POC ABG pCO2 POC ABG pO2 ABG pO2 ABG HCO3 ABG O2 Saturation ABG Base Excess ABG Hemoglobin ABG Oxyhemoglobin VBG pH ABG Sodium ABG Potassium ABG Glucose Oxyhemoglobin Sodium Potassium Chloride Carbon Dioxide BUN Creatinine Glucose POC Glucose 111 H 135 H 145 H Lactic Acid Calcium Ferritin AST Alkaline Phosphatase Magnesium Lactate Dehydrogenase Total Creatine Kinase CK-MB (CK-2) C-Reactive Protein Total Protein Albumin Troponin T HDL Cholesterol Arterial Blood Glucose Urine WBC (Auto) Urine Creatinine Urine Total Protein Coronavirus (PCR) Crossmatch 07/02/20 07/02/20 07/02/20 04:11 04:23 05:54 WBC RBC Hgb Hct MCHC RDW Lymph % (Auto) [place] % (Auto) Eos % (Auto) Lymph # [place] # Lymph # (Auto) [place] # (Auto) Seg Neutrophils % Seg Neuts % (Manual) Lymphocytes % (Manual) Seg Neutrophils # Seg Neutrophils # Man Lymphocytes # (Manual) Monocytes % (Manual) Eosinophils % (Manual) Monocytes # (Manual) Eosinophils # (Manual) D-Dimer Heparin Anti-Xa Level ABG pH POC ABG pCO2 POC ABG pO2 ABG pO2 ABG HCO3 ABG O2 Saturation ABG Base Excess ABG Hemoglobin 5.4 L ABG Oxyhemoglobin VBG pH ABG Sodium ABG Potassium ABG Glucose Oxyhemoglobin Sodium Potassium Chloride 108.6 H Carbon Dioxide BUN 72 H Creatinine Glucose 112 H POC Glucose 137 H Lactic Acid Calcium 7.8 L Ferritin AST Alkaline Phosphatase Magnesium Lactate Dehydrogenase Total Creatine Kinase CK-MB (CK-2) C-Reactive Protein Total Protein Albumin Troponin T HDL Cholesterol Arterial Blood Glucose Urine WBC (Auto) Urine Creatinine Urine Total Protein Coronavirus (PCR) Crossmatch 07/02/20 07/02/20 07/02/20 11:38 18:04 23:59 WBC RBC Hgb Hct MCHC RDW Lymph % (Auto) [place] % (Auto) Eos % (Auto) Lymph # [place] # Lymph # (Auto) [place] # (Auto) Seg Neutrophils % Seg Neuts % (Manual) Lymphocytes % (Manual) Seg Neutrophils # Seg Neutrophils # Man Lymphocytes # (Manual) Monocytes % (Manual) Eosinophils % (Manual) Monocytes # (Manual) Eosinophils # (Manual) D-Dimer Heparin Anti-Xa Level ABG pH POC ABG pCO2 POC ABG pO2 ABG pO2 ABG HCO3 ABG O2 Saturation ABG Base Excess ABG Hemoglobin ABG Oxyhemoglobin VBG pH ABG Sodium ABG Potassium ABG Glucose Oxyhemoglobin Sodium Potassium Chloride Carbon Dioxide BUN Creatinine Glucose POC Glucose 128 H 135 H 156 H Lactic Acid Calcium Ferritin AST Alkaline Phosphatase Magnesium Lactate Dehydrogenase Total Creatine Kinase CK-MB (CK-2) C-Reactive Protein Total Protein Albumin Troponin T HDL Cholesterol Arterial Blood Glucose Urine WBC (Auto) Urine Creatinine Urine Total Protein Coronavirus (PCR) Crossmatch 07/03/20 07/03/20 07/03/20 03:49 06:00 11:31 WBC RBC Hgb Hct MCHC RDW Lymph % (Auto) [place] % (Auto) Eos % (Auto) Lymph # [place] # Lymph # (Auto) [place] # (Auto) Seg Neutrophils % Seg Neuts % (Manual) Lymphocytes % (Manual) Seg Neutrophils # Seg Neutrophils # Man Lymphocytes # (Manual) Monocytes % (Manual) Eosinophils % (Manual) Monocytes # (Manual) Eosinophils # (Manual) D-Dimer Heparin Anti-Xa Level ABG pH POC ABG pCO2 POC ABG pO2 ABG pO2 121.0 H ABG HCO3 ABG O2 Saturation ABG Base Excess ABG Hemoglobin 8.5 L ABG Oxyhemoglobin VBG pH ABG Sodium ABG Potassium ABG Glucose Oxyhemoglobin Sodium Potassium Chloride Carbon Dioxide BUN Creatinine Glucose POC Glucose 135 H 141 H Lactic Acid Calcium Ferritin AST Alkaline Phosphatase Magnesium Lactate Dehydrogenase Total Creatine Kinase CK-MB (CK-2) C-Reactive Protein Total Protein Albumin Troponin T HDL Cholesterol Arterial Blood Glucose Urine WBC (Auto) Urine Creatinine Urine Total Protein Coronavirus (PCR) Crossmatch 07/03/20 07/03/20 07/04/20 16:07 17:40 05:49 WBC RBC Hgb Hct MCHC RDW Lymph % (Auto) [place] % (Auto) Eos % (Auto) Lymph # [place] # Lymph # (Auto) [place] # (Auto) Seg Neutrophils % Seg Neuts % (Manual) Lymphocytes % (Manual) Seg Neutrophils # Seg Neutrophils # Man Lymphocytes # (Manual) Monocytes % (Manual) Eosinophils % (Manual) Monocytes # (Manual) Eosinophils # (Manual) D-Dimer Heparin Anti-Xa Level ABG pH POC ABG pCO2 POC ABG pO2 ABG pO2 126.9 H ABG HCO3 ABG O2 Saturation ABG Base Excess ABG Hemoglobin 8.1 L ABG Oxyhemoglobin VBG pH ABG Sodium ABG Potassium ABG Glucose Oxyhemoglobin Sodium Potassium Chloride Carbon Dioxide BUN Creatinine Glucose POC Glucose 120 H 128 H Lactic Acid Calcium Ferritin AST Alkaline Phosphatase Magnesium Lactate Dehydrogenase Total Creatine Kinase CK-MB (CK-2) C-Reactive Protein Total Protein Albumin Troponin T HDL Cholesterol Arterial Blood Glucose Urine WBC (Auto) Urine Creatinine Urine Total Protein Coronavirus (PCR) Crossmatch 07/04/20 07/04/20 07/05/20 11:54 18:00 00:07 WBC RBC Hgb Hct MCHC RDW Lymph % (Auto) [place] % (Auto) Eos % (Auto) Lymph # [place] # Lymph # (Auto) [place] # (Auto) Seg Neutrophils % Seg Neuts % (Manual) Lymphocytes % (Manual) Seg Neutrophils # Seg Neutrophils # Man Lymphocytes # (Manual) Monocytes % (Manual) Eosinophils % (Manual) Monocytes # (Manual) Eosinophils # (Manual) D-Dimer Heparin Anti-Xa Level ABG pH POC ABG pCO2 POC ABG pO2 ABG pO2 ABG HCO3 ABG O2 Saturation ABG Base Excess ABG Hemoglobin ABG Oxyhemoglobin VBG pH ABG Sodium ABG Potassium ABG Glucose Oxyhemoglobin Sodium Potassium Chloride Carbon Dioxide BUN Creatinine Glucose POC Glucose 168 H 133 H 121 H Lactic Acid Calcium Ferritin AST Alkaline Phosphatase Magnesium Lactate Dehydrogenase Total Creatine Kinase CK-MB (CK-2) C-Reactive Protein Total Protein Albumin Troponin T HDL Cholesterol Arterial Blood Glucose Urine WBC (Auto) Urine Creatinine Urine Total Protein Coronavirus (PCR) Crossmatch 07/05/20 07/05/20 07/05/20 01:12 02:30 12:09 WBC RBC 2.35 L Hgb 6.9 L Hct 21.1 L MCHC RDW 16.8 H Lymph % (Auto) [place] % (Auto) Eos % (Auto) Lymph # [place] # Lymph # (Auto) [place] # (Auto) Seg Neutrophils % Seg Neuts % (Manual) 74.0 H Lymphocytes % (Manual) 12.0 L Seg Neutrophils # Seg Neutrophils # Man 8.0 H Lymphocytes # (Manual) Monocytes % (Manual) 9.0 H Eosinophils % (Manual) Monocytes # (Manual) 1.0 H Eosinophils # (Manual) D-Dimer Heparin Anti-Xa Level ABG pH POC ABG pCO2 POC ABG pO2 ABG pO2 ABG HCO3 ABG O2 Saturation ABG Base Excess ABG Hemoglobin ABG Oxyhemoglobin VBG pH ABG Sodium ABG Potassium ABG Glucose Oxyhemoglobin Sodium Potassium Chloride Carbon Dioxide BUN Creatinine Glucose POC Glucose 132 H Lactic Acid Calcium Ferritin AST Alkaline Phosphatase Magnesium Lactate Dehydrogenase Total Creatine Kinase CK-MB (CK-2) C-Reactive Protein Total Protein Albumin Troponin T HDL Cholesterol Arterial Blood Glucose Urine WBC (Auto) Urine Creatinine Urine Total Protein Coronavirus (PCR) Crossmatch See Detail 07/05/20 07/05/20 07/05/20 13:05 18:04 23:13 WBC RBC 2.57 L Hgb 7.7 L Hct 23.0 L MCHC RDW 16.9 H Lymph % (Auto) [place] % (Auto) Eos % (Auto) Lymph # [place] # Lymph # (Auto) [place] # (Auto) Seg Neutrophils % Seg Neuts % (Manual) Lymphocytes % (Manual) Seg Neutrophils # Seg Neutrophils # Man Lymphocytes # (Manual) Monocytes % (Manual) Eosinophils % (Manual) Monocytes # (Manual) Eosinophils # (Manual) D-Dimer Heparin Anti-Xa Level ABG pH 7.32 L POC ABG pCO2 POC ABG pO2 ABG pO2 78.3 L ABG HCO3 ABG O2 Saturation ABG Base Excess -2.6 L ABG Hemoglobin 7.3 L ABG Oxyhemoglobin VBG pH ABG Sodium ABG Potassium ABG Glucose Oxyhemoglobin Sodium Potassium Chloride Carbon Dioxide BUN Creatinine Glucose POC Glucose 160 H Lactic Acid Calcium Ferritin AST Alkaline Phosphatase Magnesium Lactate Dehydrogenase Total Creatine Kinase CK-MB (CK-2) C-Reactive Protein Total Protein Albumin Troponin T HDL Cholesterol Arterial Blood Glucose Urine WBC (Auto) Urine Creatinine Urine Total Protein Coronavirus (PCR) Crossmatch 07/05/20 07/05/20 07/06/20 23:13 23:43 13:20 WBC RBC Hgb Hct MCHC RDW Lymph % (Auto) [place] % (Auto) Eos % (Auto) Lymph # [place] # Lymph # (Auto) [place] # (Auto) Seg Neutrophils % Seg Neuts % (Manual) Lymphocytes % (Manual) Seg Neutrophils # Seg Neutrophils # Man Lymphocytes # (Manual) Monocytes % (Manual) Eosinophils % (Manual) Monocytes # (Manual) Eosinophils # (Manual) D-Dimer Heparin Anti-Xa Level ABG pH POC ABG pCO2 POC ABG pO2 ABG pO2 ABG HCO3 ABG O2 Saturation ABG Base Excess ABG Hemoglobin ABG Oxyhemoglobin VBG pH ABG Sodium ABG Potassium ABG Glucose Oxyhemoglobin Sodium Potassium Chloride Carbon Dioxide 20 L BUN 80 H Creatinine 2.4 H D Glucose 124 H POC Glucose 121 H Lactic Acid Calcium 7.6 L Ferritin AST Alkaline Phosphatase Magnesium Lactate Dehydrogenase Total Creatine Kinase CK-MB (CK-2) C-Reactive Protein Total Protein Albumin Troponin T HDL Cholesterol Arterial Blood Glucose Urine WBC (Auto) Urine Creatinine 33.3 H Urine Total Protein Coronavirus (PCR) Crossmatch 07/06/20 07/06/20 07/07/20 14:48 17:28 00:12 WBC RBC Hgb Hct MCHC RDW Lymph % (Auto) [place] % (Auto) Eos % (Auto) Lymph # [place] # Lymph # (Auto) [place] # (Auto) Seg Neutrophils % Seg Neuts % (Manual) Lymphocytes % (Manual) Seg Neutrophils # Seg Neutrophils # Man Lymphocytes # (Manual) Monocytes % (Manual) Eosinophils % (Manual) Monocytes # (Manual) Eosinophils # (Manual) D-Dimer Heparin Anti-Xa Level ABG pH POC ABG pCO2 POC ABG pO2 ABG pO2 ABG HCO3 ABG O2 Saturation ABG Base Excess ABG Hemoglobin ABG Oxyhemoglobin VBG pH ABG Sodium ABG Potassium ABG Glucose Oxyhemoglobin Sodium 136 L Potassium 5.5 H Chloride Carbon Dioxide 19 L BUN 82 H Creatinine 2.5 H Glucose 113 H POC Glucose 133 H 154 H Lactic Acid Calcium 7.7 L Ferritin AST Alkaline Phosphatase Magnesium Lactate Dehydrogenase Total Creatine Kinase CK-MB (CK-2) C-Reactive Protein Total Protein Albumin Troponin T HDL Cholesterol Arterial Blood Glucose Urine WBC (Auto) Urine Creatinine Urine Total Protein Coronavirus (PCR) Crossmatch 07/07/20 07/07/20 07/07/20 04:15 04:15 05:31 WBC RBC 2.28 L Hgb 6.8 L Hct 20.7 L MCHC RDW 16.8 H Lymph % (Auto) [place] % (Auto) Eos % (Auto) Lymph # [place] # Lymph # (Auto) [place] # (Auto) Seg Neutrophils % Seg Neuts % (Manual) Lymphocytes % (Manual) 13.0 L Seg Neutrophils # Seg Neutrophils # Man Lymphocytes # (Manual) 1.0 L Monocytes % (Manual) 11.0 H Eosinophils % (Manual) Monocytes # (Manual) 0.9 H Eosinophils # (Manual) D-Dimer Heparin Anti-Xa Level ABG pH POC ABG pCO2 POC ABG pO2 ABG pO2 ABG HCO3 ABG O2 Saturation ABG Base Excess ABG Hemoglobin ABG Oxyhemoglobin VBG pH ABG Sodium ABG Potassium ABG Glucose Oxyhemoglobin Sodium Potassium Chloride Carbon Dioxide BUN Creatinine Glucose POC Glucose 135 H Lactic Acid Calcium Ferritin AST Alkaline Phosphatase Magnesium 2.50 H Lactate Dehydrogenase Total Creatine Kinase CK-MB (CK-2) C-Reactive Protein Total Protein Albumin Troponin T HDL Cholesterol Arterial Blood Glucose Urine WBC (Auto) Urine Creatinine Urine Total Protein Coronavirus (PCR) Crossmatch 07/07/20 07/07/20 07/07/20 12:31 13:22 17:55 WBC RBC Hgb Hct MCHC RDW Lymph % (Auto) [place] % (Auto) Eos % (Auto) Lymph # [place] # Lymph # (Auto) [place] # (Auto) Seg Neutrophils % Seg Neuts % (Manual) Lymphocytes % (Manual) Seg Neutrophils # Seg Neutrophils # Man Lymphocytes # (Manual) Monocytes % (Manual) Eosinophils % (Manual) Monocytes # (Manual) Eosinophils # (Manual) D-Dimer Heparin Anti-Xa Level ABG pH POC ABG pCO2 POC ABG pO2 ABG pO2 ABG HCO3 ABG O2 Saturation ABG Base Excess ABG Hemoglobin ABG Oxyhemoglobin VBG pH ABG Sodium ABG Potassium ABG Glucose Oxyhemoglobin Sodium Potassium 5.6 H Chloride Carbon Dioxide BUN 86 H Creatinine 2.9 H Glucose 127 H POC Glucose 131 H 136 H Lactic Acid Calcium 8.1 L Ferritin AST Alkaline Phosphatase Magnesium Lactate Dehydrogenase Total Creatine Kinase CK-MB (CK-2) C-Reactive Protein Total Protein Albumin Troponin T HDL Cholesterol Arterial Blood Glucose Urine WBC (Auto) Urine Creatinine Urine Total Protein Coronavirus (PCR) Crossmatch 07/07/20 07/08/20 07/08/20 23:33 04:14 04:14 WBC RBC 3.28 L Hgb 9.7 L Hct 28.9 L D MCHC RDW 16.4 H Lymph % (Auto) 10.3 L [place] % (Auto) 10.0 H Eos % (Auto) Lymph # [place] # Lymph # (Auto) 1.1 L [place] # (Auto) 1.1 H Seg Neutrophils % 77.2 H Seg Neuts % (Manual) Lymphocytes % (Manual) Seg Neutrophils # 8.2 H Seg Neutrophils # Man Lymphocytes # (Manual) Monocytes % (Manual) Eosinophils % (Manual) Monocytes # (Manual) Eosinophils # (Manual) D-Dimer Heparin Anti-Xa Level ABG pH POC ABG pCO2 POC ABG pO2 ABG pO2 ABG HCO3 ABG O2 Saturation ABG Base Excess ABG Hemoglobin ABG Oxyhemoglobin VBG pH ABG Sodium ABG Potassium ABG Glucose Oxyhemoglobin Sodium 136 L Potassium Chloride Carbon Dioxide BUN 84 H Creatinine 2.8 H Glucose 109 H POC Glucose 159 H Lactic Acid Calcium 8.1 L Ferritin AST Alkaline Phosphatase Magnesium 2.50 H Lactate Dehydrogenase Total Creatine Kinase CK-MB (CK-2) C-Reactive Protein Total Protein Albumin Troponin T HDL Cholesterol Arterial Blood Glucose Urine WBC (Auto) Urine Creatinine Urine Total Protein Coronavirus (PCR) Crossmatch 07/08/20 07/08/20 07/08/20 12:10 18:10 23:50 WBC RBC Hgb Hct MCHC RDW Lymph % (Auto) [place] % (Auto) Eos % (Auto) Lymph # [place] # Lymph # (Auto) [place] # (Auto) Seg Neutrophils % Seg Neuts % (Manual) Lymphocytes % (Manual) Seg Neutrophils # Seg Neutrophils # Man Lymphocytes # (Manual) Monocytes % (Manual) Eosinophils % (Manual) Monocytes # (Manual) Eosinophils # (Manual) D-Dimer Heparin Anti-Xa Level ABG pH POC ABG pCO2 POC ABG pO2 ABG pO2 ABG HCO3 ABG O2 Saturation ABG Base Excess ABG Hemoglobin ABG Oxyhemoglobin VBG pH ABG Sodium ABG Potassium ABG Glucose Oxyhemoglobin Sodium Potassium Chloride Carbon Dioxide BUN Creatinine Glucose POC Glucose 108 H 125 H 141 H Lactic Acid Calcium Ferritin AST Alkaline Phosphatase Magnesium Lactate Dehydrogenase Total Creatine Kinase CK-MB (CK-2) C-Reactive Protein Total Protein Albumin Troponin T HDL Cholesterol Arterial Blood Glucose Urine WBC (Auto) Urine Creatinine Urine Total Protein Coronavirus (PCR) Crossmatch 07/09/20 07/09/20 07/09/20 05:39 11:57 17:56 WBC RBC Hgb Hct MCHC RDW Lymph % (Auto) [place] % (Auto) Eos % (Auto) Lymph # [place] # Lymph # (Auto) [place] # (Auto) Seg Neutrophils % Seg Neuts % (Manual) Lymphocytes % (Manual) Seg Neutrophils # Seg Neutrophils # Man Lymphocytes # (Manual) Monocytes % (Manual) Eosinophils % (Manual) Monocytes # (Manual) Eosinophils # (Manual) D-Dimer Heparin Anti-Xa Level ABG pH POC ABG pCO2 POC ABG pO2 ABG pO2 ABG HCO3 ABG O2 Saturation ABG Base Excess ABG Hemoglobin ABG Oxyhemoglobin VBG pH ABG Sodium ABG Potassium ABG Glucose Oxyhemoglobin Sodium Potassium Chloride Carbon Dioxide BUN Creatinine Glucose POC Glucose 121 H 123 H 119 H Lactic Acid Calcium Ferritin AST Alkaline Phosphatase Magnesium Lactate Dehydrogenase Total Creatine Kinase CK-MB (CK-2) C-Reactive Protein Total Protein Albumin Troponin T HDL Cholesterol Arterial Blood Glucose Urine WBC (Auto) Urine Creatinine Urine Total Protein Coronavirus (PCR) Crossmatch 07/10/20 07/10/20 07/10/20 00:29 05:50 10:41 WBC RBC 3.11 L Hgb 9.2 L Hct 27.6 L MCHC RDW 16.6 H Lymph % (Auto) [place] % (Auto) Eos % (Auto) Lymph # [place] # Lymph # (Auto) [place] # (Auto) Seg Neutrophils % Seg Neuts % (Manual) 78.0 H Lymphocytes % (Manual) 11.0 L Seg Neutrophils # Seg Neutrophils # Man Lymphocytes # (Manual) 1.0 L Monocytes % (Manual) Eosinophils % (Manual) Monocytes # (Manual) Eosinophils # (Manual) D-Dimer Heparin Anti-Xa Level ABG pH POC ABG pCO2 POC ABG pO2 ABG pO2 ABG HCO3 ABG O2 Saturation ABG Base Excess ABG Hemoglobin ABG Oxyhemoglobin VBG pH ABG Sodium ABG Potassium ABG Glucose Oxyhemoglobin Sodium Potassium Chloride Carbon Dioxide BUN Creatinine Glucose POC Glucose 122 H 124 H Lactic Acid Calcium Ferritin AST Alkaline Phosphatase Magnesium Lactate Dehydrogenase Total Creatine Kinase CK-MB (CK-2) C-Reactive Protein Total Protein Albumin Troponin T HDL Cholesterol Arterial Blood Glucose Urine WBC (Auto) Urine Creatinine Urine Total Protein Coronavirus (PCR) Crossmatch 07/10/20 07/10/20 07/10/20 10:41 12:25 18:10 WBC RBC Hgb Hct MCHC RDW Lymph % (Auto) [place] % (Auto) Eos % (Auto) Lymph # [place] # Lymph # (Auto) [place] # (Auto) Seg Neutrophils % Seg Neuts % (Manual) Lymphocytes % (Manual) Seg Neutrophils # Seg Neutrophils # Man Lymphocytes # (Manual) Monocytes % (Manual) Eosinophils % (Manual) Monocytes # (Manual) Eosinophils # (Manual) D-Dimer Heparin Anti-Xa Level ABG pH POC ABG pCO2 POC ABG pO2 ABG pO2 ABG HCO3 ABG O2 Saturation ABG Base Excess ABG Hemoglobin ABG Oxyhemoglobin VBG pH ABG Sodium ABG Potassium ABG Glucose Oxyhemoglobin Sodium Potassium Chloride Carbon Dioxide BUN 85 H Creatinine 2.5 H Glucose 133 H POC Glucose 131 H 134 H Lactic Acid Calcium Ferritin AST Alkaline Phosphatase 131 H Magnesium Lactate Dehydrogenase Total Creatine Kinase CK-MB (CK-2) C-Reactive Protein Total Protein 5.2 L Albumin 1.6 L Troponin T HDL Cholesterol Arterial Blood Glucose Urine WBC (Auto) Urine Creatinine Urine Total Protein Coronavirus (PCR) Crossmatch 07/11/20 07/11/20 07/11/20 00:28 05:57 12:14 WBC RBC Hgb Hct MCHC RDW Lymph % (Auto) [place] % (Auto) Eos % (Auto) Lymph # [place] # Lymph # (Auto) [place] # (Auto) Seg Neutrophils % Seg Neuts % (Manual) Lymphocytes % (Manual) Seg Neutrophils # Seg Neutrophils # Man Lymphocytes # (Manual) Monocytes % (Manual) Eosinophils % (Manual) Monocytes # (Manual) Eosinophils # (Manual) D-Dimer Heparin Anti-Xa Level ABG pH POC ABG pCO2 POC ABG pO2 ABG pO2 ABG HCO3 ABG O2 Saturation ABG Base Excess ABG Hemoglobin ABG Oxyhemoglobin VBG pH ABG Sodium ABG Potassium ABG Glucose Oxyhemoglobin Sodium Potassium Chloride Carbon Dioxide BUN Creatinine Glucose POC Glucose 140 H 148 H 147 H Lactic Acid Calcium Ferritin AST Alkaline Phosphatase Magnesium Lactate Dehydrogenase Total Creatine Kinase CK-MB (CK-2) C-Reactive Protein Total Protein Albumin Troponin T HDL Cholesterol Arterial Blood Glucose Urine WBC (Auto) Urine Creatinine Urine Total Protein Coronavirus (PCR) Crossmatch 07/11/20 07/11/20 07/12/20 17:28 23:49 05:14 WBC RBC 2.78 L Hgb 8.5 L Hct 25.3 L MCHC RDW 16.7 H Lymph % (Auto) [place] % (Auto) Eos % (Auto) Lymph # [place] # Lymph # (Auto) [place] # (Auto) Seg Neutrophils % Seg Neuts % (Manual) 81.0 H Lymphocytes % (Manual) 6.0 L Seg Neutrophils # Seg Neutrophils # Man Lymphocytes # (Manual) 0.6 L Monocytes % (Manual) 8.0 H Eosinophils % (Manual) Monocytes # (Manual) Eosinophils # (Manual) D-Dimer Heparin Anti-Xa Level ABG pH POC ABG pCO2 POC ABG pO2 ABG pO2 ABG HCO3 ABG O2 Saturation ABG Base Excess ABG Hemoglobin ABG Oxyhemoglobin VBG pH ABG Sodium ABG Potassium ABG Glucose Oxyhemoglobin Sodium Potassium Chloride Carbon Dioxide BUN Creatinine Glucose POC Glucose 175 H 114 H Lactic Acid Calcium Ferritin AST Alkaline Phosphatase Magnesium Lactate Dehydrogenase Total Creatine Kinase CK-MB (CK-2) C-Reactive Protein Total Protein Albumin Troponin T HDL Cholesterol Arterial Blood Glucose Urine WBC (Auto) Urine Creatinine Urine Total Protein Coronavirus (PCR) Crossmatch 07/12/20 07/12/20 07/12/20 05:14 05:44 11:32 WBC RBC Hgb Hct MCHC RDW Lymph % (Auto) [place] % (Auto) Eos % (Auto) Lymph # [place] # Lymph # (Auto) [place] # (Auto) Seg Neutrophils % Seg Neuts % (Manual) Lymphocytes % (Manual) Seg Neutrophils # Seg Neutrophils # Man Lymphocytes # (Manual) Monocytes % (Manual) Eosinophils % (Manual) Monocytes # (Manual) Eosinophils # (Manual) D-Dimer Heparin Anti-Xa Level ABG pH POC ABG pCO2 POC ABG pO2 ABG pO2 ABG HCO3 ABG O2 Saturation ABG Base Excess ABG Hemoglobin ABG Oxyhemoglobin VBG pH ABG Sodium ABG Potassium ABG Glucose Oxyhemoglobin Sodium Potassium Chloride Carbon Dioxide BUN 79 H Creatinine 2.2 H Glucose 131 H POC Glucose 116 H 132 H Lactic Acid Calcium Ferritin AST Alkaline Phosphatase Magnesium Lactate Dehydrogenase Total Creatine Kinase CK-MB (CK-2) C-Reactive Protein Total Protein Albumin Troponin T HDL Cholesterol Arterial Blood Glucose Urine WBC (Auto) Urine Creatinine Urine Total Protein Coronavirus (PCR) Crossmatch 07/12/20 07/13/20 07/13/20 17:53 00:18 04:53 WBC RBC 2.86 L Hgb 8.4 L Hct 25.7 L MCHC RDW 16.8 H Lymph % (Auto) [place] % (Auto) Eos % (Auto) Lymph # [place] # Lymph # (Auto) [place] # (Auto) Seg Neutrophils % Seg Neuts % (Manual) 84.0 H Lymphocytes % (Manual) 7.0 L Seg Neutrophils # Seg Neutrophils # Man Lymphocytes # (Manual) 0.6 L Monocytes % (Manual) Eosinophils % (Manual) Monocytes # (Manual) Eosinophils # (Manual) D-Dimer Heparin Anti-Xa Level ABG pH POC ABG pCO2 POC ABG pO2 ABG pO2 ABG HCO3 ABG O2 Saturation ABG Base Excess ABG Hemoglobin ABG Oxyhemoglobin VBG pH ABG Sodium ABG Potassium ABG Glucose Oxyhemoglobin Sodium Potassium Chloride Carbon Dioxide BUN Creatinine Glucose POC Glucose 155 H 162 H Lactic Acid Calcium Ferritin AST Alkaline Phosphatase Magnesium Lactate Dehydrogenase Total Creatine Kinase CK-MB (CK-2) C-Reactive Protein Total Protein Albumin Troponin T HDL Cholesterol Arterial Blood Glucose Urine WBC (Auto) Urine Creatinine Urine Total Protein Coronavirus (PCR) Crossmatch 07/13/20 07/13/20 07/13/20 04:53 06:14 12:50 WBC RBC Hgb Hct MCHC RDW Lymph % (Auto) [place] % (Auto) Eos % (Auto) Lymph # [place] # Lymph # (Auto) [place] # (Auto) Seg Neutrophils % Seg Neuts % (Manual) Lymphocytes % (Manual) Seg Neutrophils # Seg Neutrophils # Man Lymphocytes # (Manual) Monocytes % (Manual) Eosinophils % (Manual) Monocytes # (Manual) Eosinophils # (Manual) D-Dimer Heparin Anti-Xa Level ABG pH POC ABG pCO2 POC ABG pO2 ABG pO2 ABG HCO3 ABG O2 Saturation ABG Base Excess ABG Hemoglobin ABG Oxyhemoglobin VBG pH ABG Sodium ABG Potassium ABG Glucose Oxyhemoglobin Sodium 136 L Potassium Chloride Carbon Dioxide BUN 78 H Creatinine 2.0 H Glucose 130 H POC Glucose 141 H 146 H Lactic Acid Calcium Ferritin AST Alkaline Phosphatase Magnesium Lactate Dehydrogenase Total Creatine Kinase CK-MB (CK-2) C-Reactive Protein Total Protein Albumin Troponin T HDL Cholesterol Arterial Blood Glucose Urine WBC (Auto) Urine Creatinine Urine Total Protein Coronavirus (PCR) Crossmatch 07/13/20 07/14/20 07/14/20 18:27 00:22 05:43 WBC RBC Hgb Hct MCHC RDW Lymph % (Auto) [place] % (Auto) Eos % (Auto) Lymph # [place] # Lymph # (Auto) [place] # (Auto) Seg Neutrophils % Seg Neuts % (Manual) Lymphocytes % (Manual) Seg Neutrophils # Seg Neutrophils # Man Lymphocytes # (Manual) Monocytes % (Manual) Eosinophils % (Manual) Monocytes # (Manual) Eosinophils # (Manual) D-Dimer Heparin Anti-Xa Level ABG pH POC ABG pCO2 POC ABG pO2 ABG pO2 ABG HCO3 ABG O2 Saturation ABG Base Excess ABG Hemoglobin ABG Oxyhemoglobin VBG pH ABG Sodium ABG Potassium ABG Glucose Oxyhemoglobin Sodium Potassium Chloride Carbon Dioxide BUN Creatinine Glucose POC Glucose 149 H 157 H 169 H Lactic Acid Calcium Ferritin AST Alkaline Phosphatase Magnesium Lactate Dehydrogenase Total Creatine Kinase CK-MB (CK-2) C-Reactive Protein Total Protein Albumin Troponin T HDL Cholesterol Arterial Blood Glucose Urine WBC (Auto) Urine Creatinine Urine Total Protein Coronavirus (PCR) Crossmatch 07/14/20 07/14/20 07/14/20 08:04 12:12 17:23 WBC RBC Hgb Hct MCHC RDW Lymph % (Auto) [place] % (Auto) Eos % (Auto) Lymph # [place] # Lymph # (Auto) [place] # (Auto) Seg Neutrophils % Seg Neuts % (Manual) Lymphocytes % (Manual) Seg Neutrophils # Seg Neutrophils # Man Lymphocytes # (Manual) Monocytes % (Manual) Eosinophils % (Manual) Monocytes # (Manual) Eosinophils # (Manual) D-Dimer Heparin Anti-Xa Level ABG pH POC ABG pCO2 POC ABG pO2 ABG pO2 ABG HCO3 ABG O2 Saturation ABG Base Excess ABG Hemoglobin ABG Oxyhemoglobin VBG pH ABG Sodium ABG Potassium ABG Glucose Oxyhemoglobin Sodium Potassium Chloride Carbon Dioxide BUN Creatinine Glucose POC Glucose 185 H 138 H Lactic Acid Calcium Ferritin AST Alkaline Phosphatase Magnesium Lactate Dehydrogenase Total Creatine Kinase CK-MB (CK-2) C-Reactive Protein Total Protein Albumin Troponin T HDL Cholesterol Arterial Blood Glucose Urine WBC (Auto) Urine Creatinine Urine Total Protein Coronavirus (PCR) Positive A Crossmatch 07/15/20 07/15/20 07/15/20 00:04 06:06 12:00 WBC RBC Hgb Hct MCHC RDW Lymph % (Auto) [place] % (Auto) Eos % (Auto) Lymph # [place] # Lymph # (Auto) [place] # (Auto) Seg Neutrophils % Seg Neuts % (Manual) Lymphocytes % (Manual) Seg Neutrophils # Seg Neutrophils # Man Lymphocytes # (Manual) Monocytes % (Manual) Eosinophils % (Manual) Monocytes # (Manual) Eosinophils # (Manual) D-Dimer Heparin Anti-Xa Level ABG pH POC ABG pCO2 POC ABG pO2 ABG pO2 ABG HCO3 ABG O2 Saturation ABG Base Excess ABG Hemoglobin ABG Oxyhemoglobin VBG pH ABG Sodium ABG Potassium ABG Glucose Oxyhemoglobin Sodium Potassium Chloride Carbon Dioxide BUN Creatinine Glucose POC Glucose 121 H 140 H 137 H Lactic Acid Calcium Ferritin AST Alkaline Phosphatase Magnesium Lactate Dehydrogenase Total Creatine Kinase CK-MB (CK-2) C-Reactive Protein Total Protein Albumin Troponin T HDL Cholesterol Arterial Blood Glucose Urine WBC (Auto) Urine Creatinine Urine Total Protein Coronavirus (PCR) Crossmatch 07/15/20 07/15/20 07/16/20 17:53 23:53 05:26 WBC RBC Hgb Hct MCHC RDW Lymph % (Auto) [place] % (Auto) Eos % (Auto) Lymph # [place] # Lymph # (Auto) [place] # (Auto) Seg Neutrophils % Seg Neuts % (Manual) Lymphocytes % (Manual) Seg Neutrophils # Seg Neutrophils # Man Lymphocytes # (Manual) Monocytes % (Manual) Eosinophils % (Manual) Monocytes # (Manual) Eosinophils # (Manual) D-Dimer Heparin Anti-Xa Level ABG pH POC ABG pCO2 POC ABG pO2 ABG pO2 ABG HCO3 ABG O2 Saturation ABG Base Excess ABG Hemoglobin ABG Oxyhemoglobin VBG pH ABG Sodium ABG Potassium ABG Glucose Oxyhemoglobin Sodium Potassium Chloride Carbon Dioxide BUN Creatinine Glucose POC Glucose 161 H 156 H 152 H Lactic Acid Calcium Ferritin AST Alkaline Phosphatase Magnesium Lactate Dehydrogenase Total Creatine Kinase CK-MB (CK-2) C-Reactive Protein Total Protein Albumin Troponin T HDL Cholesterol Arterial Blood Glucose Urine WBC (Auto) Urine Creatinine Urine Total Protein Coronavirus (PCR) Crossmatch 07/16/20 07/17/20 07/17/20 17:44 00:07 12:06 WBC RBC Hgb Hct MCHC RDW Lymph % (Auto) [place] % (Auto) Eos % (Auto) Lymph # [place] # Lymph # (Auto) [place] # (Auto) Seg Neutrophils % Seg Neuts % (Manual) Lymphocytes % (Manual) Seg Neutrophils # Seg Neutrophils # Man Lymphocytes # (Manual) Monocytes % (Manual) Eosinophils % (Manual) Monocytes # (Manual) Eosinophils # (Manual) D-Dimer Heparin Anti-Xa Level ABG pH POC ABG pCO2 POC ABG pO2 ABG pO2 ABG HCO3 ABG O2 Saturation ABG Base Excess ABG Hemoglobin ABG Oxyhemoglobin VBG pH ABG Sodium ABG Potassium ABG Glucose Oxyhemoglobin Sodium Potassium Chloride Carbon Dioxide BUN Creatinine Glucose POC Glucose 126 H 189 H 155 H Lactic Acid Calcium Ferritin AST Alkaline Phosphatase Magnesium Lactate Dehydrogenase Total Creatine Kinase CK-MB (CK-2) C-Reactive Protein Total Protein Albumin Troponin T HDL Cholesterol Arterial Blood Glucose Urine WBC (Auto) Urine Creatinine Urine Total Protein Coronavirus (PCR) Crossmatch 07/17/20 07/17/20 07/18/20 18:20 23:25 04:24 WBC RBC Hgb Hct MCHC RDW Lymph % (Auto) [place] % (Auto) Eos % (Auto) Lymph # [place] # Lymph # (Auto) [place] # (Auto) Seg Neutrophils % Seg Neuts % (Manual) Lymphocytes % (Manual) Seg Neutrophils # Seg Neutrophils # Man Lymphocytes # (Manual) Monocytes % (Manual) Eosinophils % (Manual) Monocytes # (Manual) Eosinophils # (Manual) D-Dimer Heparin Anti-Xa Level ABG pH POC ABG pCO2 POC ABG pO2 ABG pO2 ABG HCO3 ABG O2 Saturation ABG Base Excess ABG Hemoglobin 8.8 L ABG Oxyhemoglobin VBG pH ABG Sodium 131.6 L ABG Potassium 4.9 H ABG Glucose 131 H Oxyhemoglobin Sodium Potassium Chloride Carbon Dioxide BUN Creatinine Glucose POC Glucose 206 H 161 H Lactic Acid Calcium Ferritin AST Alkaline Phosphatase Magnesium Lactate Dehydrogenase Total Creatine Kinase CK-MB (CK-2) C-Reactive Protein Total Protein Albumin Troponin T HDL Cholesterol Arterial Blood Glucose 131 H Urine WBC (Auto) Urine Creatinine Urine Total Protein Coronavirus (PCR) Crossmatch 07/18/20 07/18/20 07/18/20 05:16 11:53 18:11 WBC RBC Hgb Hct MCHC RDW Lymph % (Auto) [place] % (Auto) Eos % (Auto) Lymph # [place] # Lymph # (Auto) [place] # (Auto) Seg Neutrophils % Seg Neuts % (Manual) Lymphocytes % (Manual) Seg Neutrophils # Seg Neutrophils # Man Lymphocytes # (Manual) Monocytes % (Manual) Eosinophils % (Manual) Monocytes # (Manual) Eosinophils # (Manual) D-Dimer Heparin Anti-Xa Level ABG pH POC ABG pCO2 POC ABG pO2 ABG pO2 ABG HCO3 ABG O2 Saturation ABG Base Excess ABG Hemoglobin ABG Oxyhemoglobin VBG pH ABG Sodium ABG Potassium ABG Glucose Oxyhemoglobin Sodium Potassium Chloride Carbon Dioxide BUN Creatinine Glucose POC Glucose 140 H 176 H 143 H Lactic Acid Calcium Ferritin AST Alkaline Phosphatase Magnesium Lactate Dehydrogenase Total Creatine Kinase CK-MB (CK-2) C-Reactive Protein Total Protein Albumin Troponin T HDL Cholesterol Arterial Blood Glucose Urine WBC (Auto) Urine Creatinine Urine Total Protein Coronavirus (PCR) Crossmatch 07/18/20 07/19/20 07/19/20 23:51 01:05 01:05 WBC RBC 2.76 L Hgb 7.9 L Hct 24.5 L MCHC RDW 17.6 H Lymph % (Auto) 11.6 L [place] % (Auto) 13.1 H Eos % (Auto) Lymph # [place] # Lymph # (Auto) 1.0 L [place] # (Auto) 1.1 H Seg Neutrophils % 70.9 H Seg Neuts % (Manual) Lymphocytes % (Manual) Seg Neutrophils # Seg Neutrophils # Man Lymphocytes # (Manual) Monocytes % (Manual) Eosinophils % (Manual) Monocytes # (Manual) Eosinophils # (Manual) D-Dimer Heparin Anti-Xa Level ABG pH POC ABG pCO2 POC ABG pO2 ABG pO2 ABG HCO3 ABG O2 Saturation ABG Base Excess ABG Hemoglobin ABG Oxyhemoglobin VBG pH ABG Sodium ABG Potassium ABG Glucose Oxyhemoglobin Sodium Potassium Chloride Carbon Dioxide BUN 86 H Creatinine 1.7 H Glucose 149 H POC Glucose 159 H Lactic Acid Calcium Ferritin AST Alkaline Phosphatase Magnesium Lactate Dehydrogenase Total Creatine Kinase CK-MB (CK-2) C-Reactive Protein Total Protein Albumin Troponin T HDL Cholesterol Arterial Blood Glucose Urine WBC (Auto) Urine Creatinine Urine Total Protein Coronavirus (PCR) Crossmatch 07/19/20 07/19/20 07/19/20 05:54 12:46 17:48 WBC RBC Hgb Hct MCHC RDW Lymph % (Auto) [place] % (Auto) Eos % (Auto) Lymph # [place] # Lymph # (Auto) [place] # (Auto) Seg Neutrophils % Seg Neuts % (Manual) Lymphocytes % (Manual) Seg Neutrophils # Seg Neutrophils # Man Lymphocytes # (Manual) Monocytes % (Manual) Eosinophils % (Manual) Monocytes # (Manual) Eosinophils # (Manual) D-Dimer Heparin Anti-Xa Level ABG pH POC ABG pCO2 POC ABG pO2 ABG pO2 ABG HCO3 ABG O2 Saturation ABG Base Excess ABG Hemoglobin ABG Oxyhemoglobin VBG pH ABG Sodium ABG Potassium ABG Glucose Oxyhemoglobin Sodium Potassium Chloride Carbon Dioxide BUN Creatinine Glucose POC Glucose 176 H 127 H 123 H Lactic Acid Calcium Ferritin AST Alkaline Phosphatase Magnesium Lactate Dehydrogenase Total Creatine Kinase CK-MB (CK-2) C-Reactive Protein Total Protein Albumin Troponin T HDL Cholesterol Arterial Blood Glucose Urine WBC (Auto) Urine Creatinine Urine Total Protein Coronavirus (PCR) Crossmatch 07/20/20 07/20/20 00:34 05:28 WBC RBC Hgb Hct MCHC RDW Lymph % (Auto) [place] % (Auto) Eos % (Auto) Lymph # [place] # Lymph # (Auto) [place] # (Auto) Seg Neutrophils % Seg Neuts % (Manual) Lymphocytes % (Manual) Seg Neutrophils # Seg Neutrophils # Man Lymphocytes # (Manual) Monocytes % (Manual) Eosinophils % (Manual) Monocytes # (Manual) Eosinophils # (Manual) D-Dimer Heparin Anti-Xa Level ABG pH POC ABG pCO2 POC ABG pO2 ABG pO2 ABG HCO3 ABG O2 Saturation ABG Base Excess ABG Hemoglobin ABG Oxyhemoglobin VBG pH ABG Sodium ABG Potassium ABG Glucose Oxyhemoglobin Sodium Potassium Chloride Carbon Dioxide BUN Creatinine Glucose POC Glucose 147 H 110 H Lactic Acid Calcium Ferritin AST Alkaline Phosphatase Magnesium Lactate Dehydrogenase Total Creatine Kinase CK-MB (CK-2) C-Reactive Protein Total Protein Albumin Troponin T HDL Cholesterol Arterial Blood Glucose Urine WBC (Auto) Urine Creatinine Urine Total Protein Coronavirus (PCR) Crossmatch Chest x-ray: image reviewed Allied health notes reviewed: RT
--- NOTE | 2020-07-20 17:46 | Progress Note ---
Assessment and Plan Assessment and plan: --s/p cardiopulmonary arrest on admission, 06/26 and 07/01, s/p CPR per ACLS protocol, refer to code sheet --Possible anoxic brain injury, neurology consulted, neuro requested MRI brain, EEG MRI brain could not be done due to body habitus, EEG not done --Acute hypoxemic respiratory failure; vent dependent intubated on admission, extubated on 06/12/20 then placed on high flow o2 patient developed another respiratory arrest on 06/26 - reintubated Patient not tolerating weaning parameters CC following, Surgery evaluated the patient for trach and PEG COVID-19 test positive x3, trach and PEG pending neuro evaluation -- Hypertension; moderate control Increase hydralazine dose to 75 mg 3 times a day Continue amlodipine, coreg, clonidine and hydralazine --Worsening renal function; creatinine 2.4-2.5-2.9 Vasomotor nephropathy, gentle hydration Avoid nephrotoxins, monitor renal function Reconsult nephrology --Rectal bleeding; Hb dropped from 8.2 -6.9-7.7-6.8 today, Transfused 1 unit PRBC Closely monitor H&H, GI following, no plans of endoscopy --Acute blood loss anemia; Received 2 units of PRBC transfusion, Hb improved from 6.9-7.7-6.8 Patient received 2 units of PRBC in the past, transfuse 1 additional unit today Closely monitor H&H --Severe sepsis; completed antibiotics per ID persistently positive for COVID-19 and Klebsiella pneumoniae --COVID-19 b/l PNA Completed remdesivir on 06/02 Completed dexamethasone - Last dose 06/07 COVID 19 test positive x 3 during this admission --Superficial left cephalic vein DVT/elevated D-dimers[COVID 19] Patient initially started on heparin drip from 05/29/20 D-dimers improved [id number] treated with Eliquis 5 mg twice a day for 1 week[per ID] stop date 06/26/2020 -- Acute toxic metabolic encephalopathy, POA likely from sepsis and s/p cardiac arrest with possible anoxic injury -- Acute renal failure: likely ATN avoid nephrotoxins, reconsult nephrology if no improvement --Klebsiella pneumonia: ID evaluated completed second round of 5 days of cefepime on 07/04/2020 --Acute on chronic systolic heart failure Cardiology following. Ef 45% -- Coffee ground emesis -Stress ulcers Possible stress ulcers, On PPI H/H again dropped - transfuse GI evaluated --Transaminitis. Etiology likely from COVID-19. cont to monitor -- DVT prophylaxis Eliquis, SCD to bilateral lower extremities while in bed -- Advance care planning Patient is critically ill with multiple medical problems Poor prognosis, family updated and requesting full code The high probability of a clinically significant, sudden or life threatening deterioration of the [CVS, renal, respiratory, [employer]] system(s) required my full and direct attention, intervention and personal management. The aggregate critical care time was [31] minutes. This time is in addition to time spent performing reported procedures but includes the following: [x] Data Review and interpretation [x] Patient assessment and monitoring of vital signs [x] Documentation [x] Medication orders and management 07/11/2020. Patient currently on mechanical ventilation AC/PRVC with rate of 12, tidal volume 450, FiO2 30% and PEEP of 6 07/12/2020. Patient placed on CPAP with pressure support of 10 and tolerating well. Continue PSB trials as tolerated. 07/13/2020. Patient currently with AC mode rate 12, tidal volume 450, FiO2 30% and PEEP of 6. Surgery has been consulted for trach and PEG placement. Recall nephrology for renal insufficiency. 07/14/20; surgery evaluated for trach and PEG , pending call with test which is is positive today COVID-19 test positive x3 since admission 07/16; trach and PEG pending neuro evaluation 07/17; vent dependent, trach PEG pending neuro evaluation, pending MRI EEG study[already ordered] 07/18; unable to do MRI, due to body habitus, morbid obesity, radiology consult Patient critically ill very poor prognosis 07/19; remains intubated on vent, clinically no change 07/20; unable to wean, needs trach and PEG, need MRI , unable to do due to body habitus History Interval history: I have seen and examined the patient at the bedside in ICU COVID-19 patient, isolation precautions, PPE protocols strictly followed Patient remains intubated on ventilatory support Noncommunicative Vital signs reviewed and addressed Hospitalist Physical - Constitutional Vitals: Temp Pulse Resp BP Pulse Ox 97.5 F L 63 16 149/61 97 07/20/20 16:00 07/20/20 17:00 07/20/20 17:00 07/20/20 17:00 07/20/20 17:00 General appearance: Present: no acute distress, well-nourished, obese (Morbidly obese), other (Intubated on ventilatory support) - EENT Eyes: Present: PERRL, EOM intact - Neck Neck: Present: supple. Absent: enlarged thyroid - Respiratory Respiratory effort: normal Respiratory: bilateral: diminished, rhonchi, negative: rales, wheezing - Cardiovascular Rhythm: regular Heart Sounds: Present: S1 & S2 - Extremities Extremities: no ischemia Extremity abnormal: edema - Abdominal General gastrointestinal: soft, non-tender, non-distended, normal bowel sounds - Integumentary Integumentary: Present: clear, warm - Psychiatric Psychiatric: other (Intubated on vent) - Neurologic Neurologic: other (Intubated on vent) HEART Score - HEART Score Troponin: Troponin T 0.067 ng/mL (0.00-0.029) H 07/01/20 06:01 Results - Labs CBC & Chem 7: 07/19/20 01:05 07/19/20 01:05 Labs: Laboratory Last Values WBC 8.4 K/mm3 (4.5-11.0) 07/19/20 01:05 RBC 2.76 M/mm3 (3.65-5.03) L 07/19/20 01:05 Hgb 7.9 gm/dl (10.1-14.3) L 07/19/20 01:05 Hct 24.5 % (30.3-42.9) L 07/19/20 01:05 MCV 89 fl (79-97) 07/19/20 01:05 MCH 29 pg (28-32) 07/19/20 01:05 MCHC 32 % (30-34) 07/19/20 01:05 RDW 17.6 % (13.2-15.2) H 07/19/20 01:05 Plt Count 312 K/mm3 (140-440) 07/19/20 01:05 Lymph % (Auto) 11.6 % (13.4-35.0) L 07/19/20 01:05 [place] % (Auto) 13.1 % (0.0-7.3) H 07/19/20 01:05 Eos % (Auto) 3.7 % (0.0-4.3) 07/19/20 01:05 Baso % (Auto) 0.7 % (0.0-1.8) 07/19/20 01:05 Lymph # (Auto) 1.0 K/mm3 (1.2-5.4) L 07/19/20 01:05 [place] # (Auto) 1.1 K/mm3 (0.0-0.8) H 07/19/20 01:05 Eos # (Auto) 0.3 K/mm3 (0.0-0.4) 07/19/20 01:05 Baso # (Auto) 0.1 K/mm3 (0.0-0.1) 07/19/20 01:05 Add Manual Diff Complete 07/13/20 04:53 Total Counted 100 07/13/20 04:53 Seg Neutrophils % 70.9 % (40.0-70.0) H 07/19/20 01:05 Seg Neuts % (Manual) 84.0 % (40.0-70.0) H 07/13/20 04:53 Band Neutrophils % 1.0 % 07/13/20 04:53 Lymphocytes % (Manual) 7.0 % (13.4-35.0) L 07/13/20 04:53 Reactive Lymphs % (Man) 0 % 07/13/20 04:53 Monocytes % (Manual) 5.0 % (0.0-7.3) 07/13/20 04:53 Eosinophils % (Manual) 1.0 % (0.0-4.3) 07/13/20 04:53 Basophils % (Manual) 0 % (0.0-1.8) 07/13/20 04:53 Metamyelocytes % 2.0 % 07/13/20 04:53 Myelocytes % 0 % 07/13/20 04:53 Promyelocytes % 0 % 07/13/20 04:53 Blast Cells % 0 % 07/13/20 04:53 Nucleated RBC % Not Reportable 07/13/20 04:53 Seg Neutrophils # 5.9 K/mm3 (1.8-7.7) 07/19/20 01:05 Seg Neutrophils # Man 7.1 K/mm3 (1.8-7.7) 07/13/20 04:53 Band Neutrophils # 0.1 K/mm3 07/13/20 04:53 Lymphocytes # (Manual) 0.6 K/mm3 (1.2-5.4) L 07/13/20 04:53 Abs React Lymphs (Man) 0.0 K/mm3 07/13/20 04:53 Monocytes # (Manual) 0.4 K/mm3 (0.0-0.8) 07/13/20 04:53 Eosinophils # (Manual) 0.1 K/mm3 (0.0-0.4) 07/13/20 04:53 Basophils # (Manual) 0.0 K/mm3 (0.0-0.1) 07/13/20 04:53 Metamyelocytes # 0.2 K/mm3 07/13/20 04:53 Myelocytes # 0.0 K/mm3 07/13/20 04:53 Promyelocytes # 0.0 K/mm3 07/13/20 04:53 Blast Cells # 0.0 K/mm3 07/13/20 04:53 WBC Morphology Not Reportable 07/13/20 04:53 Hypersegmented Neuts Not Reportable 07/13/20 04:53 Hyposegmented Neuts Not Reportable 07/13/20 04:53 Hypogranular Neuts Not Reportable 07/13/20 04:53 Smudge Cells Not Reportable 07/13/20 04:53 Toxic Granulation Not Reportable 07/13/20 04:53 Toxic Vacuolation Not Reportable 07/13/20 04:53 Dohle Bodies Not Reportable 07/13/20 04:53 Pelger-Huet Anomaly Not Reportable 07/13/20 04:53 Sanjuanita Rods Not Reportable 07/13/20 04:53 Platelet Estimate Consistent w auto 07/13/20 04:53 Clumped Platelets Not Reportable 07/13/20 04:53 Plt Clumps, EDTA Not Reportable 07/13/20 04:53 Large Platelets Not Reportable 07/13/20 04:53 Giant Platelets Not Reportable 07/13/20 04:53 Platelet Satelliting Not Reportable 07/13/20 04:53 Plt Morphology Comment Not Reportable 07/13/20 04:53 RBC Morphology Not Reportable 07/13/20 04:53 Dimorphic RBCs Not Reportable 07/13/20 04:53 Polychromasia Not Reportable 07/13/20 04:53 Hypochromasia Not Reportable 07/13/20 04:53 Poikilocytosis Not Reportable 07/13/20 04:53 Anisocytosis 1+ 07/13/20 04:53 Microcytosis Not Reportable 07/13/20 04:53 Macrocytosis Not Reportable 07/13/20 04:53 Spherocytes Not Reportable 07/13/20 04:53 Pappenheimer Bodies Not Reportable 07/13/20 04:53 Sickle Cells Not Reportable 07/13/20 04:53 Target Cells Not Reportable 07/13/20 04:53 Tear Drop Cells Not Reportable 07/13/20 04:53 Ovalocytes Not Reportable 07/13/20 04:53 Helmet Cells Not Reportable 07/13/20 04:53 Jones-Allouez Bodies Not Reportable 07/13/20 04:53 [place] Rings Not Reportable 07/13/20 04:53 [place] Cells Not Reportable 07/13/20 04:53 Bite Cells Not Reportable 07/13/20 04:53 Crenated Cell Not Reportable 07/13/20 04:53 Elliptocytes Not Reportable 07/13/20 04:53 Acanthocytes (Spur) Not Reportable 07/13/20 04:53 Rouleaux Not Reportable 07/13/20 04:53 Hemoglobin C Crystals Not Reportable 07/13/20 04:53 Schistocytes Not Reportable 07/13/20 04:53 Malaria parasites Not Reportable 07/13/20 04:53 Kev Bodies Not Reportable 07/13/20 04:53 Hem Pathologist Commnt No 07/13/20 04:53 PT 14.2 Sec. (12.2-14.9) 05/29/20 15:10 INR 1.08 (0.87-1.13) 05/29/20 15:10 APTT 27.2 Sec. (24.2-36.6) 05/29/20 15:10 D-Dimer 2310.15 ng/mlDDU (0-234) H 06/29/20 14:45 Heparin Anti-Xa Level 0.34 U.I./ml (0.3-0.7) 06/19/20 10:46 ABG pH 7.382 (7.320-7.450) 07/18/20 04:24 POC ABG pCO2 44.1 mmHg (32.0-48.0) 07/18/20 04:24 ABG pCO2 47.0 mm Hg 07/05/20 13:05 ABG Oxyhemoglobin 92.6 (94-98) L 06/23/20 12:34 POC ABG pO2 86.8 mmHg (83-108) 07/18/20 04:24 ABG pO2 78.3 mm Hg (80.0-90.0) L 07/05/20 13:05 POC ABG HCO3 25.6 07/18/20 04:24 ABG HCO3 23.4 mmol/L (20.0-26.0) 07/05/20 13:05 ABG O2 Saturation 96.1 % (95.0-99.0) 07/05/20 13:05 ABG O2 Content 0.3 (0.0-44) 07/05/20 13:05 POC ABG Base Excess 0.4 07/18/20 04:24 ABG Base Excess -2.6 mmol/L (-2.0-3.0) L 07/05/20 13:05 ABG Hemoglobin 8.8 (12.0-17.5) L 07/18/20 04:24 ABG Carboxyhemoglobin 1.7 % (0.0-5.0) 07/05/20 13:05 ABG Methemoglobin 0.2 % (0.0-1.5) 07/05/20 13:05 VBG pH 7.152 (7.320-7.420) L* 05/28/20 13:47 ABG Sodium 131.6 mmol/L (136.0-145.0) L 07/18/20 04:24 ABG Potassium 4.9 mmol/L (3.40-4.50) H 07/18/20 04:24 ABG Chloride 104.0 mmol/L (98-107) 07/18/20 04:24 ABG Glucose 131 mg/dL (65-95) H 07/18/20 04:24 Carboxyhemoglobin 0.5 (0.5-1.5) 06/23/20 12:34 Oxyhemoglobin 97.4 % (95.0-99.0) 07/05/20 13:05 FiO2 30.0 07/18/20 04:24 Sodium 137 mmol/L (137-145) 07/19/20 01:05 Potassium 4.9 mmol/L (3.6-5.0) 07/19/20 01:05 Chloride 101.6 mmol/L (98-107) 07/19/20 01:05 Carbon Dioxide 22 mmol/L (22-30) 07/19/20 01:05 Anion Gap 18 mmol/L 07/19/20 01:05 BUN 86 mg/dL (7-17) H 07/19/20 01:05 Creatinine 1.7 mg/dL (0.6-1.2) H 07/19/20 01:05 Estimated GFR 30 ml/min 07/19/20 01:05 BUN/Creatinine Ratio 51 % 07/19/20 01:05 Glucose 149 mg/dL (65-100) H 07/19/20 01:05 POC Glucose 173 (70-105) H 07/20/20 17:00 Lactic Acid 0.60 mmol/L (0.7-2.0) L 06/27/20 05:00 Calcium 8.8 mg/dL (8.4-10.2) 07/19/20 01:05 Ferritin 223.6 ng/mL (10.0-200.0) H 06/29/20 14:45 Magnesium 2.50 mg/dL (1.7-2.3) H 07/08/20 04:14 Lactate Dehydrogenase 367 units/L (91-180) H 06/29/20 14:45 Total Bilirubin < 0.20 mg/dL (0.1-1.2) 07/10/20 10:41 AST 25 units/L (5-40) 07/10/20 10:41 ALT 11 units/L (7-56) 07/10/20 10:41 Alkaline Phosphatase 131 units/L (35-129) H 07/10/20 10:41 C-Reactive Protein 3.60 mg/dL (0.00-1.30) H 06/29/20 14:45 Total Creatine Kinase 300 units/L (30-135) H 07/01/20 06:01 CK-MB (CK-2) 2.0 ng/mL (0.0-4.0) 07/01/20 06:01 CK-MB (CK-2) Rel Index 0.6 (0-4) 07/01/20 06:01 Troponin T 0.067 ng/mL (0.00-0.029) H 07/01/20 06:01 Total Protein 5.2 g/dL (6.3-8.2) L 07/10/20 10:41 Albumin 1.6 g/dL (3.9-5) L 07/10/20 10:41 Albumin/Globulin Ratio 0.4 % 07/10/20 10:41 Triglycerides 142 mg/dL (2-149) 07/01/20 06:01 Cholesterol 137 mg/dL (50-199) 07/01/20 06:01 LDL Cholesterol Direct 62 mg/dL (50-130) 07/01/20 06:01 HDL Cholesterol 61 mg/dL (40-59) H 07/01/20 06:01 Cholesterol/HDL Ratio 2.24 % 07/01/20 06:01 Procalcitonin 0.18 ng/mL (<0.15) 07/14/20 04:55 Arterial Blood Glucose 131 mg/dL (65-95) H 07/18/20 04:24 Arterial Blood Ionized Calcium 5.1 mg/dL (4.6-5.3) 07/18/20 04:24 Urine Color Yellow (Yellow) 06/06/20 04:00 Urine Turbidity Cloudy (Clear) 06/06/20 04:00 Urine pH 5.0 (5.0-7.0) 06/06/20 04:00 Ur Specific [place] 1.012 (1.003-1.030) 06/06/20 04:00 Urine Protein 100 mg/dl mg/dL (Negative) 06/06/20 04:00 Urine Glucose (UA) 50 mg/dL (Negative) 06/06/20 04:00 Urine Ketones Neg mg/dL (Negative) 06/06/20 04:00 Urine Blood Sm (Negative) 06/06/20 04:00 Urine Nitrite Neg (Negative) 06/06/20 04:00 Urine Bilirubin Neg (Negative) 06/06/20 04:00 Urine Urobilinogen < 2.0 mg/dL (<2.0) 06/06/20 04:00 Ur Leukocyte Esterase Neg (Negative) 06/06/20 04:00 Urine WBC (Auto) 15.0 /HPF (0.0-6.0) H 06/06/20 04:00 Urine RBC (Auto) 23.0 /HPF (0.0-6.0) 06/06/20 04:00 U Epithel Cells (Auto) 8.0 /HPF (0-13.0) 06/06/20 04:00 Urine Bacteria (Auto) 2+ /HPF (Negative) 06/06/20 04:00 Amorphous Crystals 1+ 06/06/20 04:00 Hyaline Casts 16 /LPF 06/06/20 04:00 Urine Mucus 2+ /HPF 06/06/20 04:00 Urine Yeast (Budding) 2+ /HPF 06/03/20 Unknown Urine Creatinine 33.3 mg/dL (0.1-20.0) H 07/06/20 13:20 Urine Sodium 21 mmol/L 07/06/20 13:20 Urine Total Protein 196 mg/dL (5-11.8) H 06/06/20 04:00 Nasal Screen MRSA (PCR) Negative (Negative) 06/29/20 08:30 Coronavirus (PCR) Positive (Negative) A 07/14/20 08:04 Blood Type A POSITIVE 07/05/20 02:30 Antibody Screen Negative 07/05/20 02:30 Crossmatch See Detail 07/05/20 02:30 - Diagnostic Impressions Diagnostic Impressions: Echocardiogram Limited Views 05/29/20 13:52 Transthoracic Echocardiogram Indication: Pulm Embolus BP: 169/76 HR: 85 Conclusions *Limited study for RV size post cardiopulmonar arrest. *RV is only slightly dilated, no significant difference from prior echo 05/13/2020. *Global left ventricular systolic function is at the lower limits of normal. *The estimated ejection fraction is 45-50%. *Mild to moderate concentric left ventricular hypertrophy is observed. *The left and right atria are both mild to moderately dilated. Findings Left Ventricle: The left ventricular chamber size is mildly dilated. Mild to moderate concentric left ventricular hypertrophy is observed. Global left ventricular systolic function is at the lower limits of normal. The estimated ejection fraction is 45-50%. Left Atrium: The left atrium is mild to moderately dilated. Right Ventricle: The right ventricle is slightly dilated. Right Atrium: The right atrium is mild to moderately dilated. Aortic Valve: The aortic valve leaflets are moderately thickened. Mitral Valve: There is mitral annular calcification. The mitral valve leaflets are moderately thickened. Tricuspid Valve: The tricuspid valve leaflets are mildly thickened. Pericardium: A trivial pericardial effusion is visualized. NDUM: 05/29/20 1808 Amended Report Transthoracic Echocardiogram Indication: Pulm Embolus BP: 169/76 HR: 85 Conclusions *Limited study for RV size post cardiopulmonary arrest. *RV is only slightly dilated, no significant difference from prior echo 05/13/2020. *Global left ventricular systolic function is at the lower limits of normal. *The estimated ejection fraction is 45-50%. *Mild to moderate concentric left ventricular hypertrophy is observed. *The left and right atria are both mild to moderately dilated. Findings Left Ventricle: The left ventricular chamber size is mildly dilated. Mild to moderate concentric left ventricular hypertrophy is observed. Global left ventricular systolic function is at the lower limits of normal. The estimated ejection fraction is 45-50%. Left Atrium: The left atrium is mild to moderately dilated. Right Ventricle: The right ventricle is slightly dilated. Right Atrium: The right atrium is mild to moderately dilated. Aortic Valve: The aortic valve leaflets are moderately thickened. Mitral Valve: There is mitral annular calcification. The mitral valve leaflets are moderately thickened. Tricuspid Valve: The tricuspid valve leaflets are mildly thickened. Pericardium: A trivial pericardial effusion is visualized. Helm/IV: Voiding Method External Female Catheter IV Catheter Type [Left Wrist] Peripheral IV IV Catheter Type [Left Upper Mid-line arm] IV Catheter Type [Right CVL Internal Jugular] IV Catheter Type [Right Hand] Peripheral IV IV Catheter Type [Right Wrist] Not found on patient IV Catheter Type [Left Hand] INT / Saline Lock IV Catheter Type [Left INT / Saline Lock Antecubital] IV Catheter Type [Right Peripheral IV Forearm] IV Catheter Type [Left Leg] Intra-osseous Active Medications - Current Medications Current Medications: Generic Name Dose Route Start Last Admin Trade Name Freq PRN Reason Stop Dose Admin Acetaminophen 650 mg 06/09/20 10:57 06/29/20 21:18 Tylenol FEEDTUBE 650 mg Q6H PRN Administration Fever >101 Amlodipine Besylate 10 mg 06/02/20 11:00 07/20/20 11:14 Amlodipine PO 10 mg DAILY NELOSN Administration Lipase/Protease/Amylase 1 each 05/29/20 13:39 07/07/20 10:36 Pancremu Lawson 10,500 Unit FEEDTUBE 1 each PRN PRN Administration For Clogged Feeding Tube Carvedilol 25 mg 07/20/20 11:00 07/20/20 11:15 Coreg PO 25 mg Q12HR NELSON Administration Clonidine HCl 0.3 mg 07/20/20 11:00 07/20/20 11:14 Catapres PO 0.3 mg Q8H NELSON Administration Glycopyrrolate 2 mg 06/09/20 14:00 07/20/20 16:06 Glycopyrrolate PO 2 mg TID NELSON Administration Heparin Sodium (Porcine) 5,000 unit 06/30/20 14:00 07/20/20 16:07 Heparin SUB-Q 5,000 unit Q8HR NELSON Administration Hydralazine HCl 100 mg 07/14/20 14:00 07/20/20 16:07 Apresoline PO 100 mg TID NELSON Administration Hydrophilic Ointment 1 applic 05/28/20 13:49 Vaseline Lip Therapy TP Q2HR PRN Dry Lips Insulin Glargine 10 units 06/08/20 22:00 07/19/20 22:03 Lantus SUB-Q 10 units QHS NELSON Administration Insulin Human Lispro 0 unit 05/29/20 18:00 07/20/20 12:40 Humalog SUB-Q Not Given Q6H [facility] Protocol Labetalol HCl 20 mg 06/03/20 09:00 07/20/20 05:43 Labetalol IV 20 mg Q4H PRN Administration HYPERTENSION Lansoprazole 30 mg 06/05/20 22:00 07/20/20 11:14 Prevacid Solutab FEEDTUBE 30 mg BID NELSON Administration Multi-Ingred Cream/Lotion/Oil/Oint 1 applic 05/28/20 13:49 Artificial Tears Ophth Oint OU Q4HR PRN Dry Eye(s) Ondansetron HCl 4 mg 06/02/20 09:00 06/09/20 16:48 Zofran IV 4 mg Q8H PRN Administration Nausea And Vomiting Senna 17.6 mg 06/03/20 10:00 07/20/20 11:15 Senokot FEEDTUBE 17.6 mg BID NELSON Administration Simple Syrup 15 ml 05/29/20 13:39 Simple Syrup FEEDTUBE PRN PRN Hypoglycemia Simple Syrup 30 ml 05/29/20 13:39 Simple Syrup FEEDTUBE PRN PRN Hypoglycemia Sodium Bicarbonate 325 mg 05/29/20 13:39 07/07/20 10:36 Sodium Bicarbonate FEEDTUBE 325 mg PRN PRN Administration For Clogged Feeding Tube Sodium Chloride 10 ml 05/28/20 22:00 07/20/20 11:15 Sodium Chloride Flush Syringe 10 Ml IV 10 ml BID NELSON Administration Sodium Chloride 10 ml 05/28/20 19:08 06/16/20 17:50 Sodium Chloride Flush Syringe 10 Ml IV 10 ml PRN PRN Administration LINE FLUSH Nutrition/Malnutrition Assess - Dietary Evaluation Nutrition/Malnutrition Findings: Nutrition Notes Start: 05/29/20 11:45 Freq: Status: Active Protocol: Document 07/20/20 11:28 (Rec: 07/20/20 11:32 [id number]) Nutrition Notes Initial or Follow up Reassessment Current Diagnosis Acute Kidney Injury,Diabetes, Heart Failure,Respiratory Failure Other Pertinent Diagnosis COVID-19 (+), Pulmonary edema, dysphagia Current Diet Nepro at 40 ml/hr Labs/Tests BUN 86 Cr 1.7 Pertinent Medications Reviewed Height 5 ft 6 in Weight 123 kg [place] Body Weight (kg) 59.09 BMI 43.7 Weight Status Morbidly Obese Subjective/Other Information FU for TF tolerance. TF running at goal, pt tolerating . Pt unable to get PEG placed due to COVID test result. Percent of energy/protein needs met: 100%/53% Burn Absent Trauma Absent Current % PO Negligible Minimum of two criteria No physical signs of malnutrition Fluid Accumulation Mild (non-severe) #1 Nutrition Diagnosis Inadequate oral intake Diagnosis Progress(for reassessment Continues documentation) Is patient on ventilator? Yes Is Patient Ambulatory and/or Out of Bed No REE-([facility]-confined to bed) 2172.576 Kcal/Kg value to use for calculation 13 Approximate Energy Requirements Using 1599 kcal/Kg Calculation Used for Recommendations Kcal/kg Additional Notes Protein needs up to 148g (up to 2.5g/kg IBW) Fluid needs 1ml/kcal Nutrition Intervention Change Diet Order: Continue Nutrition Support: Nepro at 40ml/hr Flush 150ml q4h Kcal 1,728 Protein (gm) 78 Fluid (mL) 697 Goal #1 TF tolerance Goal #2 TF to meet at least 65%-70% energy and 80% protein needs Anticipated Discharge Needs: Unable to determine at this time Follow-Up By: 07/27/20 Additional Comments FU for TF tolerance
[2020-07-20] MEDS: INSULIN GLARGINE 100 UNITS/ML SUB-Q SCH (21:38)
[2020-07-21] MEDS: INSULIN LISPRO 100 UNIT/ML VIAL 3 mL SUB-Q SCH ×4 (00:40→18:48)
[2020-07-21] MEDS: cloNIDine 0.2 MG TAB PO SCH ×3 (02:23→18:48)
[2020-07-21] MEDS: HEPARIN 5,000 UNIT/1 ML VIAL SUB-Q SCH ×3 (05:58→21:09)
[2020-07-21] MEDS: GLYCOPYRROLATE 2 MG TAB PO SCH ×3 (08:58→21:08)
[2020-07-21] MEDS: hydrALAZINE 100 MG TAB PO SCH ×3 (08:58→21:08)
[2020-07-21] MEDS: amLODIPine 10 MG TAB PO SCH (09:04)
[2020-07-21] MEDS: carvediloL 25 MG TAB PO SCH ×2 (09:04→21:08)
[2020-07-21] MEDS ORDERED: NIFEdipine XL 30 MG TAB PO SCH (10:00)
[2020-07-21] MEDS: LANSOPRAZOLE 30 MG SOLUTAB FEEDTUBE SCH ×2 (10:24→21:08)
[2020-07-21] MEDS: SENNOSIDES ORAL LIQD 8.8 MG/5 ML ORAL LIQD FEEDTUBE SCH ×2 (10:25→21:06)
--- NOTE | 2020-07-21 10:36 | Progress Note ---
Assessment and Plan Cardiopulmoanry arrest 06/26/2020 with ROSC Acute hypoxemic respiratory failure , extubated now re-intubated Anemia s/p PRBC Severe COVID infection Multifocal pneumonia Morbid obesity Acute toxic metabolic encephalopathy AVANI secondary to COVID/vasomotor nephropathy Bilateral pulmonary edema. Bilateral pleural effusions. History of congestive heart failure. History of pulmonary hypertension. History of hypertension. Diabetes. Obesity hypoventilation syndrome. Oropharyngeal dysphagia Non convulsive status Adjust blood pressure medications-added Minoxidil to therapy Keppra loading and scheduled 1 gram BID Follow up EEG in 48 hours Neurology on consult Continue to trend temperature curve and WCC Continue daily SBTs as tolerated, her mental status precludes liberation from MVS Continue to avoid nephrotoxins, closely monitor renal function, dose all medications for renal function COVID positive, trach /PEG on hold Supportive transfusions as indicated CXR and ABG as clinically indicated - VAP bundle addressed -Aspiration precautions, HOB >40 -lung protective strategies-ARDS. net - continue bronchodilators with pulmonary hygiene per RT - wean per pulmonary driven protocols otherwise - continue to avoid benzodiazepines, reduce the possibility of delirium - prn analgesia per CPOT score - Continue to wean supplemental oxygen for target O2 sats > 92% -Continue to hold sedation, if needed intermittent dosing - conservative fluid management measures as tolerated by hemodynamics and renal function - Bronchodilators with pulmonary hygiene per RT - Accuchecks with glycemic control per SSI (While critically ill target blood glucose of 140-180 mg/dL; avoid hypoglycemia) - Maintenance of sleep-wake cycle, avoid delirium - Aspiration precautions, HOB >40 - Stress ulcer prophylaxis -Famotidine - Mobility protocol, off loading and skin assessment for pressure ulcer preven tion - Supportive transfusions as indicated to keep HgB >7g/dL COVID SPECIFIC INTERVENTIONS -Airborne, contact isolation for COVID per facility protocols - s/p Remdesivir -IV steroids-Dexamethasone -Trend d-dimer,and other inflammatory markers per facility protocol -Convalescent plasma therapy per facility protocol -Continue all supportive care Discussed with the ICU team-RT,RN, Clincal pharmacist and case management Life threatening condition- Cardiopulmonary arrest with ROSC, Sepsis ;COVID 19 acute hypoxemic respiratory failure on MVS Mortality/Morbidity- High Complexity of medical decision making- High CONDITION: CRITICAL PROGNOSIS: GUARDED CODE STATUS: FULL CODE The high probability of a clinically significant, sudden or life-threatening deterioration of the [respiratory & neurology, renal ] system(s) required my full and direct attention, intervention and personal management. The aggregate critical care time was [32] minutes without overlap. Time includes spent on; [x] Data Review and interpretation [x] Patient assessment and monitoring of vital signs [x] Documentation [x] Medication orders and management Subjective Date of service: 07/21/20 Principal diagnosis: Ac hypoxemic resp failure; COVID-19; pneumonia; CHF; Pulm HTN; OHS; DM II Interval history: Patient is seen today for: Ac hypoxemic resp failure s/p Cardiopulmonary arrest with ROSC; Coronavirus-19 infection; pneumonia; Pulmonary edema; Bilateral pleural effusions; CHF; Morbid obesity; pulmonary hypertension; OHS; DM II Seen and examined at bedside; 24hour events reviewed; nursing and respiratory care staff consulted; Vitals, labs,medications, chart reviewed. Remains on MVS, no fevers, Did not tolerate PS trials today Mental status changes persist, but grimaces to pain and will open her eyes with sternal rub Tolerating tube feedings, No adverse overnight events 07/19/2020 Trach on hold secondary to recent positive COVID testing Neurology prognostication unable to be completed as an EEG was apparently cancelled secondary to COVID status, patient's habitus is such that she could not fit into the MRI machine No new issues otherwise, placed on PSV 10 and she is tolerating it No fevers, mental status changes persist, no adverse overnight events reported by RN or RT 07/20/2020 -Persistently elevated blood pressure. Continues to tolerate PSV trials -Mental status changes persist -Will re-order EEG today 07/21/2020 -EEG shows burst suppression pattern, consistent with status epilepticus per Neurology read -Blood pressure control continues to be challenging -Tolerating PSV trials, no fevers, no new respiratory issues Objective Vital Signs - 12hr 07/20/20 07/20/20 07/20/20 23:00 23:27 23:30 Temperature 98.2 F Pulse Rate 62 66 Pulse Rate [ From Monitor] Respiratory 16 18 Rate Blood Pressure 156/64 150/58 O2 Sat by Pulse 97 97 Oximetry 07/20/20 07/21/20 07/21/20 23:52 00:00 00:05 Temperature Pulse Rate 66 66 67 Pulse Rate [ 66 From Monitor] Respiratory 19 17 Rate Blood Pressure 159/60 159/60 O2 Sat by Pulse 98 97 96 Oximetry 07/21/20 07/21/20 07/21/20 00:30 01:00 01:30 Temperature Pulse Rate 67 65 65 Pulse Rate [ From Monitor] Respiratory 17 16 13 Rate Blood Pressure 166/73 167/71 160/83 O2 Sat by Pulse 99 97 96 Oximetry 07/21/20 07/21/20 07/21/20 02:00 02:23 02:30 Temperature Pulse Rate 66 66 65 Pulse Rate [ From Monitor] Respiratory 18 17 Rate Blood Pressure 167/87 167/87 183/86 O2 Sat by Pulse 96 97 Oximetry 07/21/20 07/21/20 07/21/20 03:00 03:30 03:35 Temperature 98.9 F Pulse Rate 64 62 Pulse Rate [ From Monitor] Respiratory 12 13 Rate Blood Pressure 166/68 168/58 O2 Sat by Pulse 97 97 Oximetry 07/21/20 07/21/20 07/21/20 04:00 04:30 04:56 Temperature Pulse Rate 65 65 65 Pulse Rate [ From Monitor] Respiratory 16 19 Rate Blood Pressure 183/73 168/76 168/76 O2 Sat by Pulse 97 97 96 Oximetry 07/21/20 07/21/20 07/21/20 05:00 05:30 05:56 Temperature Pulse Rate 65 65 64 Pulse Rate [ From Monitor] Respiratory 16 17 Rate Blood Pressure 175/71 183/76 183/76 O2 Sat by Pulse 97 97 Oximetry 07/21/20 07/21/20 07/21/20 06:00 06:31 07:00 Temperature Pulse Rate 65 64 64 Pulse Rate [ From Monitor] Respiratory 16 16 16 Rate Blood Pressure 178/75 165/69 169/78 O2 Sat by Pulse 97 97 97 Oximetry 07/21/20 07/21/20 07/21/20 07:30 08:00 09:04 Temperature 98.1 F Pulse Rate 65 65 64 Pulse Rate [ From Monitor] Respiratory 18 16 Rate Blood Pressure 167/83 173/68 166/65 O2 Sat by Pulse 97 96 Oximetry Constitutional: appears uncomfortable, other (elderly looking obese female with mildly increased respiratory effort at rest on MVS) Eyes: non-icteric ENT: oropharynx dry, other (ETT 23-24 cm AYAN) Neck: supple, no lymphadenopathy, no JVD, other (large neck circumference) Effort: mildly labored Ascultation: Bilateral: clear, diminished breath sounds, rales, rhonchi Percussion: Bilateral: not dull Cardiovascular: regular rate and rhythm, other (S1,S2) Gastrointestinal: normoactive bowel sounds, soft, non-tender, non-distended Integumentary: normal Extremities: no cyanosis, pink and warm, pulses normal, no ischemia or petechiae, edema (trace) Neurologic: pupils equal and round, unable to assess, other (lethargic to ob tunded) Psychiatric: other (unable to assess re: AMS) CBC and BMP: 07/19/20 01:05 07/19/20 01:05 ABG, PT/INR, D-dimer: ABG ABG pH 7.382 (7.320-7.450) 07/18/20 04:24 POC ABG pCO2 44.1 mmHg (32.0-48.0) 07/18/20 04:24 ABG pCO2 47.0 mm Hg 07/05/20 13:05 POC ABG pO2 86.8 mmHg (83-108) 07/18/20 04:24 ABG pO2 78.3 mm Hg (80.0-90.0) L 07/05/20 13:05 POC ABG HCO3 25.6 07/18/20 04:24 ABG O2 Saturation 96.1 % (95.0-99.0) 07/05/20 13:05 PT/INR, D-dimer PT 14.2 Sec. (12.2-14.9) 05/29/20 15:10 INR 1.08 (0.87-1.13) 05/29/20 15:10 D-Dimer 2310.15 ng/mlDDU (0-234) H 06/29/20 14:45 Abnormal lab findings: Abnormal Labs 05/28/20 05/28/20 05/28/20 13:29 13:47 13:47 WBC RBC Hgb Hct MCHC RDW 15.3 H Lymph % (Auto) [place] % (Auto) Eos % (Auto) Lymph # [place] # Lymph # (Auto) [place] # (Auto) Seg Neutrophils % Seg Neuts % (Manual) Lymphocytes % (Manual) Seg Neutrophils # Seg Neutrophils # Man Lymphocytes # (Manual) Monocytes % (Manual) Eosinophils % (Manual) Monocytes # (Manual) Eosinophils # (Manual) D-Dimer Heparin Anti-Xa Level ABG pH POC ABG pCO2 POC ABG pO2 ABG pO2 ABG HCO3 ABG O2 Saturation ABG Base Excess ABG Hemoglobin ABG Oxyhemoglobin VBG pH ABG Sodium ABG Potassium ABG Glucose Oxyhemoglobin Sodium Potassium 6.6 H* Chloride 109.2 H Carbon Dioxide 17 L BUN 29 H Creatinine 1.3 H Glucose 265 H POC Glucose 248 H Lactic Acid Calcium 8.1 L Ferritin AST 63 H Alkaline Phosphatase Magnesium Lactate Dehydrogenase Total Creatine Kinase 301 H CK-MB (CK-2) 4.3 H C-Reactive Protein Total Protein 5.4 L Albumin 2.6 L Troponin T HDL Cholesterol Arterial Blood Glucose Urine WBC (Auto) Urine Creatinine Urine Total Protein Coronavirus (PCR) Crossmatch 05/28/20 05/28/20 05/28/20 13:47 13:47 14:46 WBC RBC Hgb Hct MCHC RDW Lymph % (Auto) [place] % (Auto) Eos % (Auto) Lymph # [place] # Lymph # (Auto) [place] # (Auto) Seg Neutrophils % Seg Neuts % (Manual) Lymphocytes % (Manual) Seg Neutrophils # Seg Neutrophils # Man Lymphocytes # (Manual) Monocytes % (Manual) Eosinophils % (Manual) Monocytes # (Manual) Eosinophils # (Manual) D-Dimer Heparin Anti-Xa Level ABG pH POC ABG pCO2 POC ABG pO2 ABG pO2 ABG HCO3 ABG O2 Saturation ABG Base Excess ABG Hemoglobin ABG Oxyhemoglobin VBG pH 7.152 L* ABG Sodium ABG Potassium ABG Glucose Oxyhemoglobin Sodium Potassium 7.2 H* Chloride Carbon Dioxide BUN Creatinine Glucose POC Glucose Lactic Acid 3.40 H* Calcium Ferritin AST Alkaline Phosphatase Magnesium Lactate Dehydrogenase Total Creatine Kinase CK-MB (CK-2) C-Reactive Protein Total Protein Albumin Troponin T HDL Cholesterol Arterial Blood Glucose Urine WBC (Auto) Urine Creatinine Urine Total Protein Coronavirus (PCR) Crossmatch 05/28/20 05/28/20 05/28/20 15:33 15:33 15:51 WBC RBC Hgb Hct MCHC RDW Lymph % (Auto) [place] % (Auto) Eos % (Auto) Lymph # [place] # Lymph # (Auto) [place] # (Auto) Seg Neutrophils % Seg Neuts % (Manual) Lymphocytes % (Manual) Seg Neutrophils # Seg Neutrophils # Man Lymphocytes # (Manual) Monocytes % (Manual) Eosinophils % (Manual) Monocytes # (Manual) Eosinophils # (Manual) D-Dimer 8780.43 H Heparin Anti-Xa Level ABG pH 7.284 L POC ABG pCO2 POC ABG pO2 ABG pO2 273.0 H ABG HCO3 ABG O2 Saturation 99.4 H ABG Base Excess -6.1 L ABG Hemoglobin 17.2 H ABG Oxyhemoglobin VBG pH ABG Sodium ABG Potassium ABG Glucose Oxyhemoglobin Sodium Potassium Chloride Carbon Dioxide BUN Creatinine Glucose 152 H POC Glucose Lactic Acid Calcium Ferritin AST Alkaline Phosphatase Magnesium Lactate Dehydrogenase 365 H Total Creatine Kinase CK-MB (CK-2) C-Reactive Protein Total Protein Albumin Troponin T HDL Cholesterol Arterial Blood Glucose Urine WBC (Auto) Urine Creatinine Urine Total Protein Coronavirus (PCR) Crossmatch 05/28/20 05/28/20 05/28/20 16:30 20:41 23:20 WBC RBC Hgb Hct MCHC RDW Lymph % (Auto) [place] % (Auto) Eos % (Auto) Lymph # [place] # Lymph # (Auto) [place] # (Auto) Seg Neutrophils % Seg Neuts % (Manual) Lymphocytes % (Manual) Seg Neutrophils # Seg Neutrophils # Man Lymphocytes # (Manual) Monocytes % (Manual) Eosinophils % (Manual) Monocytes # (Manual) Eosinophils # (Manual) D-Dimer Heparin Anti-Xa Level ABG pH POC ABG pCO2 POC ABG pO2 ABG pO2 ABG HCO3 ABG O2 Saturation ABG Base Excess ABG Hemoglobin ABG Oxyhemoglobin VBG pH ABG Sodium ABG Potassium ABG Glucose Oxyhemoglobin Sodium Potassium Chloride Carbon Dioxide BUN Creatinine Glucose POC Glucose 225 H 224 H Lactic Acid Calcium Ferritin AST Alkaline Phosphatase Magnesium Lactate Dehydrogenase Total Creatine Kinase CK-MB (CK-2) C-Reactive Protein Total Protein Albumin Troponin T HDL Cholesterol Arterial Blood Glucose Urine WBC (Auto) 17.0 H Urine Creatinine Urine Total Protein Coronavirus (PCR) Crossmatch 05/28/20 05/29/20 05/29/20 Unknown 04:35 04:43 WBC RBC 3.48 L Hgb 9.8 L Hct 29.4 L MCHC RDW 16.0 H Lymph % (Auto) 7.4 L [place] % (Auto) Eos % (Auto) Lymph # 0.7 L [place] # Lymph # (Auto) [place] # (Auto) Seg Neutrophils % 89.1 H Seg Neuts % (Manual) Lymphocytes % (Manual) Seg Neutrophils # 8.1 H Seg Neutrophils # Man Lymphocytes # (Manual) Monocytes % (Manual) Eosinophils % (Manual) Monocytes # (Manual) Eosinophils # (Manual) D-Dimer Heparin Anti-Xa Level ABG pH POC ABG pCO2 POC ABG pO2 ABG pO2 ABG HCO3 19.3 L ABG O2 Saturation ABG Base Excess -4.5 L ABG Hemoglobin 9.7 L ABG Oxyhemoglobin VBG pH ABG Sodium ABG Potassium ABG Glucose Oxyhemoglobin Sodium Potassium Chloride Carbon Dioxide BUN Creatinine Glucose POC Glucose Lactic Acid Calcium Ferritin AST Alkaline Phosphatase Magnesium Lactate Dehydrogenase Total Creatine Kinase CK-MB (CK-2) C-Reactive Protein Total Protein Albumin Troponin T HDL Cholesterol Arterial Blood Glucose Urine WBC (Auto) Urine Creatinine Urine Total Protein Coronavirus (PCR) Positive A Crossmatch 05/29/20 05/29/20 05/29/20 04:43 15:10 17:17 WBC RBC Hgb 9.3 L Hct 28.7 L MCHC RDW Lymph % (Auto) [place] % (Auto) Eos % (Auto) Lymph # [place] # Lymph # (Auto) [place] # (Auto) Seg Neutrophils % Seg Neuts % (Manual) Lymphocytes % (Manual) Seg Neutrophils # Seg Neutrophils # Man Lymphocytes # (Manual) Monocytes % (Manual) Eosinophils % (Manual) Monocytes # (Manual) Eosinophils # (Manual) D-Dimer Heparin Anti-Xa Level ABG pH POC ABG pCO2 POC ABG pO2 ABG pO2 ABG HCO3 ABG O2 Saturation ABG Base Excess ABG Hemoglobin ABG Oxyhemoglobin VBG pH ABG Sodium ABG Potassium ABG Glucose Oxyhemoglobin Sodium Potassium Chloride 110.2 H Carbon Dioxide 18 L BUN 32 H Creatinine 1.4 H Glucose 180 H POC Glucose 147 H Lactic Acid Calcium Ferritin AST Alkaline Phosphatase Magnesium Lactate Dehydrogenase Total Creatine Kinase CK-MB (CK-2) C-Reactive Protein Total Protein Albumin Troponin T HDL Cholesterol Arterial Blood Glucose Urine WBC (Auto) Urine Creatinine Urine Total Protein Coronavirus (PCR) Crossmatch 05/30/20 05/30/20 05/30/20 00:08 00:12 04:15 WBC RBC Hgb Hct MCHC RDW Lymph % (Auto) [place] % (Auto) Eos % (Auto) Lymph # [place] # Lymph # (Auto) [place] # (Auto) Seg Neutrophils % Seg Neuts % (Manual) Lymphocytes % (Manual) Seg Neutrophils # Seg Neutrophils # Man Lymphocytes # (Manual) Monocytes % (Manual) Eosinophils % (Manual) Monocytes # (Manual) Eosinophils # (Manual) D-Dimer Heparin Anti-Xa Level 0.71 H ABG pH 7.460 H POC ABG pCO2 POC ABG pO2 ABG pO2 106.0 H ABG HCO3 18.9 L ABG O2 Saturation ABG Base Excess -4.4 L ABG Hemoglobin 6.8 L ABG Oxyhemoglobin VBG pH ABG Sodium ABG Potassium ABG Glucose Oxyhemoglobin Sodium Potassium Chloride Carbon Dioxide BUN Creatinine Glucose POC Glucose 195 H Lactic Acid Calcium Ferritin AST Alkaline Phosphatase Magnesium Lactate Dehydrogenase Total Creatine Kinase CK-MB (CK-2) C-Reactive Protein Total Protein Albumin Troponin T HDL Cholesterol Arterial Blood Glucose Urine WBC (Auto) Urine Creatinine Urine Total Protein Coronavirus (PCR) Crossmatch 05/30/20 05/30/20 05/30/20 06:07 08:37 12:33 WBC RBC Hgb Hct MCHC RDW Lymph % (Auto) [place] % (Auto) Eos % (Auto) Lymph # [place] # Lymph # (Auto) [place] # (Auto) Seg Neutrophils % Seg Neuts % (Manual) Lymphocytes % (Manual) Seg Neutrophils # Seg Neutrophils # Man Lymphocytes # (Manual) Monocytes % (Manual) Eosinophils % (Manual) Monocytes # (Manual) Eosinophils # (Manual) D-Dimer Heparin Anti-Xa Level 0.85 H ABG pH POC ABG pCO2 POC ABG pO2 ABG pO2 ABG HCO3 ABG O2 Saturation ABG Base Excess ABG Hemoglobin ABG Oxyhemoglobin VBG pH ABG Sodium ABG Potassium ABG Glucose Oxyhemoglobin Sodium Potassium Chloride Carbon Dioxide BUN Creatinine Glucose POC Glucose 182 H 187 H Lactic Acid Calcium Ferritin AST Alkaline Phosphatase Magnesium Lactate Dehydrogenase Total Creatine Kinase CK-MB (CK-2) C-Reactive Protein Total Protein Albumin Troponin T HDL Cholesterol Arterial Blood Glucose Urine WBC (Auto) Urine Creatinine Urine Total Protein Coronavirus (PCR) Crossmatch 05/30/20 05/30/20 05/30/20 15:58 17:57 23:36 WBC RBC Hgb Hct MCHC RDW Lymph % (Auto) [place] % (Auto) Eos % (Auto) Lymph # [place] # Lymph # (Auto) [place] # (Auto) Seg Neutrophils % Seg Neuts % (Manual) Lymphocytes % (Manual) Seg Neutrophils # Seg Neutrophils # Man Lymphocytes # (Manual) Monocytes % (Manual) Eosinophils % (Manual) Monocytes # (Manual) Eosinophils # (Manual) D-Dimer Heparin Anti-Xa Level 1.03 H ABG pH POC ABG pCO2 POC ABG pO2 ABG pO2 ABG HCO3 ABG O2 Saturation ABG Base Excess ABG Hemoglobin ABG Oxyhemoglobin VBG pH ABG Sodium ABG Potassium ABG Glucose Oxyhemoglobin Sodium Potassium Chloride Carbon Dioxide BUN Creatinine Glucose POC Glucose 208 H 185 H Lactic Acid Calcium Ferritin AST Alkaline Phosphatase Magnesium Lactate Dehydrogenase Total Creatine Kinase CK-MB (CK-2) C-Reactive Protein Total Protein Albumin Troponin T HDL Cholesterol Arterial Blood Glucose Urine WBC (Auto) Urine Creatinine Urine Total Protein Coronavirus (PCR) Crossmatch 05/31/20 05/31/20 05/31/20 02:16 03:55 06:16 WBC RBC Hgb 9.2 L Hct 27.5 L MCHC RDW Lymph % (Auto) [place] % (Auto) Eos % (Auto) Lymph # [place] # Lymph # (Auto) [place] # (Auto) Seg Neutrophils % Seg Neuts % (Manual) Lymphocytes % (Manual) Seg Neutrophils # Seg Neutrophils # Man Lymphocytes # (Manual) Monocytes % (Manual) Eosinophils % (Manual) Monocytes # (Manual) Eosinophils # (Manual) D-Dimer Heparin Anti-Xa Level ABG pH POC ABG pCO2 POC ABG pO2 ABG pO2 94.7 H ABG HCO3 18.6 L ABG O2 Saturation ABG Base Excess -5.5 L ABG Hemoglobin 7.9 L ABG Oxyhemoglobin VBG pH ABG Sodium ABG Potassium ABG Glucose Oxyhemoglobin Sodium Potassium Chloride Carbon Dioxide BUN Creatinine Glucose POC Glucose 160 H Lactic Acid Calcium Ferritin AST Alkaline Phosphatase Magnesium Lactate Dehydrogenase Total Creatine Kinase CK-MB (CK-2) C-Reactive Protein Total Protein Albumin Troponin T HDL Cholesterol Arterial Blood Glucose Urine WBC (Auto) Urine Creatinine Urine Total Protein Coronavirus (PCR) Crossmatch 05/31/20 05/31/20 05/31/20 12:20 13:03 18:13 WBC RBC Hgb Hct MCHC RDW Lymph % (Auto) [place] % (Auto) Eos % (Auto) Lymph # [place] # Lymph # (Auto) [place] # (Auto) Seg Neutrophils % Seg Neuts % (Manual) Lymphocytes % (Manual) Seg Neutrophils # Seg Neutrophils # Man Lymphocytes # (Manual) Monocytes % (Manual) Eosinophils % (Manual) Monocytes # (Manual) Eosinophils # (Manual) D-Dimer Heparin Anti-Xa Level ABG pH POC ABG pCO2 POC ABG pO2 ABG pO2 ABG HCO3 ABG O2 Saturation ABG Base Excess ABG Hemoglobin ABG Oxyhemoglobin VBG pH ABG Sodium ABG Potassium ABG Glucose Oxyhemoglobin Sodium Potassium Chloride Carbon Dioxide 18 L BUN 48 H Creatinine 1.6 H Glucose 115 H POC Glucose 128 H 159 H Lactic Acid Calcium 8.3 L Ferritin AST Alkaline Phosphatase Magnesium Lactate Dehydrogenase Total Creatine Kinase CK-MB (CK-2) C-Reactive Protein Total Protein 5.4 L Albumin 2.4 L Troponin T HDL Cholesterol Arterial Blood Glucose Urine WBC (Auto) Urine Creatinine Urine Total Protein Coronavirus (PCR) Crossmatch 05/31/20 06/01/20 06/01/20 23:51 04:00 05:48 WBC RBC Hgb Hct MCHC RDW Lymph % (Auto) [place] % (Auto) Eos % (Auto) Lymph # [place] # Lymph # (Auto) [place] # (Auto) Seg Neutrophils % Seg Neuts % (Manual) Lymphocytes % (Manual) Seg Neutrophils # Seg Neutrophils # Man Lymphocytes # (Manual) Monocytes % (Manual) Eosinophils % (Manual) Monocytes # (Manual) Eosinophils # (Manual) D-Dimer Heparin Anti-Xa Level ABG pH POC ABG pCO2 POC ABG pO2 ABG pO2 109.8 H ABG HCO3 18.8 L ABG O2 Saturation ABG Base Excess -5.9 L ABG Hemoglobin 7.8 L ABG Oxyhemoglobin VBG pH ABG Sodium ABG Potassium ABG Glucose Oxyhemoglobin Sodium Potassium Chloride Carbon Dioxide BUN Creatinine Glucose POC Glucose 171 H 133 H Lactic Acid Calcium Ferritin AST Alkaline Phosphatase Magnesium Lactate Dehydrogenase Total Creatine Kinase CK-MB (CK-2) C-Reactive Protein Total Protein Albumin Troponin T HDL Cholesterol Arterial Blood Glucose Urine WBC (Auto) Urine Creatinine Urine Total Protein Coronavirus (PCR) Crossmatch 06/01/20 06/01/20 06/02/20 12:28 17:29 00:08 WBC RBC Hgb Hct MCHC RDW Lymph % (Auto) [place] % (Auto) Eos % (Auto) Lymph # [place] # Lymph # (Auto) [place] # (Auto) Seg Neutrophils % Seg Neuts % (Manual) Lymphocytes % (Manual) Seg Neutrophils # Seg Neutrophils # Man Lymphocytes # (Manual) Monocytes % (Manual) Eosinophils % (Manual) Monocytes # (Manual) Eosinophils # (Manual) D-Dimer Heparin Anti-Xa Level ABG pH POC ABG pCO2 POC ABG pO2 ABG pO2 ABG HCO3 ABG O2 Saturation ABG Base Excess ABG Hemoglobin ABG Oxyhemoglobin VBG pH ABG Sodium ABG Potassium ABG Glucose Oxyhemoglobin Sodium Potassium Chloride Carbon Dioxide BUN Creatinine Glucose POC Glucose 199 H 209 H 162 H Lactic Acid Calcium Ferritin AST Alkaline Phosphatase Magnesium Lactate Dehydrogenase Total Creatine Kinase CK-MB (CK-2) C-Reactive Protein Total Protein Albumin Troponin T HDL Cholesterol Arterial Blood Glucose Urine WBC (Auto) Urine Creatinine Urine Total Protein Coronavirus (PCR) Crossmatch 06/02/20 06/02/20 06/02/20 04:20 04:20 04:44 WBC RBC Hgb 10.0 L Hct MCHC RDW Lymph % (Auto) [place] % (Auto) Eos % (Auto) Lymph # [place] # Lymph # (Auto) [place] # (Auto) Seg Neutrophils % Seg Neuts % (Manual) Lymphocytes % (Manual) Seg Neutrophils # Seg Neutrophils # Man Lymphocytes # (Manual) Monocytes % (Manual) Eosinophils % (Manual) Monocytes # (Manual) Eosinophils # (Manual) D-Dimer Heparin Anti-Xa Level 0.10 L ABG pH POC ABG pCO2 POC ABG pO2 ABG pO2 150.6 H ABG HCO3 ABG O2 Saturation ABG Base Excess -4.1 L ABG Hemoglobin 11.8 L ABG Oxyhemoglobin VBG pH ABG Sodium ABG Potassium ABG Glucose Oxyhemoglobin Sodium Potassium Chloride Carbon Dioxide BUN Creatinine Glucose POC Glucose Lactic Acid Calcium Ferritin AST Alkaline Phosphatase Magnesium Lactate Dehydrogenase Total Creatine Kinase CK-MB (CK-2) C-Reactive Protein Total Protein Albumin Troponin T HDL Cholesterol Arterial Blood Glucose Urine WBC (Auto) Urine Creatinine Urine Total Protein Coronavirus (PCR) Crossmatch 06/02/20 06/02/20 06/02/20 05:53 12:04 13:49 WBC RBC Hgb Hct MCHC RDW Lymph % (Auto) [place] % (Auto) Eos % (Auto) Lymph # [place] # Lymph # (Auto) [place] # (Auto) Seg Neutrophils % Seg Neuts % (Manual) Lymphocytes % (Manual) Seg Neutrophils # Seg Neutrophils # Man Lymphocytes # (Manual) Monocytes % (Manual) Eosinophils % (Manual) Monocytes # (Manual) Eosinophils # (Manual) D-Dimer Heparin Anti-Xa Level 0.28 L ABG pH POC ABG pCO2 POC ABG pO2 ABG pO2 ABG HCO3 ABG O2 Saturation ABG Base Excess ABG Hemoglobin ABG Oxyhemoglobin VBG pH ABG Sodium ABG Potassium ABG Glucose Oxyhemoglobin Sodium Potassium Chloride Carbon Dioxide BUN Creatinine Glucose POC Glucose 149 H 220 H Lactic Acid Calcium Ferritin AST Alkaline Phosphatase Magnesium Lactate Dehydrogenase Total Creatine Kinase CK-MB (CK-2) C-Reactive Protein Total Protein Albumin Troponin T HDL Cholesterol Arterial Blood Glucose Urine WBC (Auto) Urine Creatinine Urine Total Protein Coronavirus (PCR) Crossmatch 06/02/20 06/02/20 06/03/20 13:49 18:31 00:42 WBC RBC Hgb Hct MCHC RDW Lymph % (Auto) [place] % (Auto) Eos % (Auto) Lymph # [place] # Lymph # (Auto) [place] # (Auto) Seg Neutrophils % Seg Neuts % (Manual) Lymphocytes % (Manual) Seg Neutrophils # Seg Neutrophils # Man Lymphocytes # (Manual) Monocytes % (Manual) Eosinophils % (Manual) Monocytes # (Manual) Eosinophils # (Manual) D-Dimer 769.68 H Heparin Anti-Xa Level ABG pH POC ABG pCO2 POC ABG pO2 ABG pO2 ABG HCO3 ABG O2 Saturation ABG Base Excess ABG Hemoglobin ABG Oxyhemoglobin VBG pH ABG Sodium ABG Potassium ABG Glucose Oxyhemoglobin Sodium Potassium Chloride Carbon Dioxide BUN Creatinine Glucose POC Glucose 225 H 212 H Lactic Acid Calcium Ferritin AST Alkaline Phosphatase Magnesium Lactate Dehydrogenase Total Creatine Kinase CK-MB (CK-2) C-Reactive Protein Total Protein Albumin Troponin T HDL Cholesterol Arterial Blood Glucose Urine WBC (Auto) Urine Creatinine Urine Total Protein Coronavirus (PCR) Crossmatch 06/03/20 06/03/20 06/03/20 05:16 05:16 05:25 WBC 11.4 H RBC Hgb Hct MCHC RDW 16.4 H Lymph % (Auto) [place] % (Auto) Eos % (Auto) Lymph # [place] # Lymph # (Auto) [place] # (Auto) Seg Neutrophils % Seg Neuts % (Manual) Lymphocytes % (Manual) Seg Neutrophils # Seg Neutrophils # Man Lymphocytes # (Manual) Monocytes % (Manual) Eosinophils % (Manual) Monocytes # (Manual) Eosinophils # (Manual) D-Dimer Heparin Anti-Xa Level ABG pH POC ABG pCO2 POC ABG pO2 ABG pO2 160.9 H ABG HCO3 19.4 L ABG O2 Saturation ABG Base Excess -4.9 L ABG Hemoglobin 7.0 L ABG Oxyhemoglobin VBG pH ABG Sodium ABG Potassium ABG Glucose Oxyhemoglobin Sodium Potassium Chloride Carbon Dioxide 18 L BUN 65 H Creatinine 2.0 H Glucose 175 H POC Glucose Lactic Acid Calcium 8.0 L Ferritin AST Alkaline Phosphatase Magnesium Lactate Dehydrogenase Total Creatine Kinase CK-MB (CK-2) C-Reactive Protein Total Protein 5.5 L Albumin 2.2 L Troponin T HDL Cholesterol Arterial Blood Glucose Urine WBC (Auto) Urine Creatinine Urine Total Protein Coronavirus (PCR) Crossmatch 06/03/20 06/03/20 06/03/20 06:07 11:58 18:24 WBC RBC Hgb Hct MCHC RDW Lymph % (Auto) [place] % (Auto) Eos % (Auto) Lymph # [place] # Lymph # (Auto) [place] # (Auto) Seg Neutrophils % Seg Neuts % (Manual) Lymphocytes % (Manual) Seg Neutrophils # Seg Neutrophils # Man Lymphocytes # (Manual) Monocytes % (Manual) Eosinophils % (Manual) Monocytes # (Manual) Eosinophils # (Manual) D-Dimer Heparin Anti-Xa Level ABG pH POC ABG pCO2 POC ABG pO2 ABG pO2 ABG HCO3 ABG O2 Saturation ABG Base Excess ABG Hemoglobin ABG Oxyhemoglobin VBG pH ABG Sodium ABG Potassium ABG Glucose Oxyhemoglobin Sodium Potassium Chloride Carbon Dioxide BUN Creatinine Glucose POC Glucose 177 H 163 H 211 H Lactic Acid Calcium Ferritin AST Alkaline Phosphatase Magnesium Lactate Dehydrogenase Total Creatine Kinase CK-MB (CK-2) C-Reactive Protein Total Protein Albumin Troponin T HDL Cholesterol Arterial Blood Glucose Urine WBC (Auto) Urine Creatinine Urine Total Protein Coronavirus (PCR) Crossmatch 06/03/20 06/03/20 06/04/20 21:50 Unknown 00:26 WBC RBC Hgb Hct MCHC RDW Lymph % (Auto) [place] % (Auto) Eos % (Auto) Lymph # [place] # Lymph # (Auto) [place] # (Auto) Seg Neutrophils % Seg Neuts % (Manual) Lymphocytes % (Manual) Seg Neutrophils # Seg Neutrophils # Man Lymphocytes # (Manual) Monocytes % (Manual) Eosinophils % (Manual) Monocytes # (Manual) Eosinophils # (Manual) D-Dimer Heparin Anti-Xa Level ABG pH POC ABG pCO2 POC ABG pO2 ABG pO2 ABG HCO3 ABG O2 Saturation ABG Base Excess ABG Hemoglobin ABG Oxyhemoglobin VBG pH ABG Sodium ABG Potassium ABG Glucose Oxyhemoglobin Sodium 135 L Potassium Chloride Carbon Dioxide 18 L BUN Creatinine Glucose POC Glucose 241 H Lactic Acid Calcium Ferritin AST Alkaline Phosphatase Magnesium Lactate Dehydrogenase Total Creatine Kinase CK-MB (CK-2) C-Reactive Protein Total Protein Albumin Troponin T HDL Cholesterol Arterial Blood Glucose Urine WBC (Auto) 11.0 H Urine Creatinine Urine Total Protein Coronavirus (PCR) Crossmatch 06/04/20 06/04/20 06/04/20 03:35 04:19 04:19 WBC RBC 3.15 L Hgb 8.9 L Hct 26.8 L D MCHC RDW 15.9 H Lymph % (Auto) 6.0 L [place] % (Auto) Eos % (Auto) Lymph # 0.6 L [place] # Lymph # (Auto) [place] # (Auto) Seg Neutrophils % 86.6 H Seg Neuts % (Manual) Lymphocytes % (Manual) Seg Neutrophils # 9.1 H Seg Neutrophils # Man Lymphocytes # (Manual) Monocytes % (Manual) Eosinophils % (Manual) Monocytes # (Manual) Eosinophils # (Manual) D-Dimer Heparin Anti-Xa Level ABG pH 7.331 L POC ABG pCO2 POC ABG pO2 ABG pO2 ABG HCO3 ABG O2 Saturation ABG Base Excess -4.7 L ABG Hemoglobin 11.0 L ABG Oxyhemoglobin VBG pH ABG Sodium ABG Potassium ABG Glucose Oxyhemoglobin 93.9 L Sodium 136 L Potassium Chloride Carbon Dioxide 20 L BUN 73 H Creatinine 2.0 H Glucose 192 H POC Glucose Lactic Acid Calcium 8.0 L Ferritin AST Alkaline Phosphatase Magnesium Lactate Dehydrogenase 271 H Total Creatine Kinase CK-MB (CK-2) C-Reactive Protein 2.20 H Total Protein 5.0 L Albumin 2.0 L Troponin T HDL Cholesterol Arterial Blood Glucose Urine WBC (Auto) Urine Creatinine Urine Total Protein Coronavirus (PCR) Crossmatch 06/04/20 06/04/20 06/04/20 04:19 05:51 11:48 WBC RBC Hgb Hct MCHC RDW Lymph % (Auto) [place] % (Auto) Eos % (Auto) Lymph # [place] # Lymph # (Auto) [place] # (Auto) Seg Neutrophils % Seg Neuts % (Manual) Lymphocytes % (Manual) Seg Neutrophils # Seg Neutrophils # Man Lymphocytes # (Manual) Monocytes % (Manual) Eosinophils % (Manual) Monocytes # (Manual) Eosinophils # (Manual) D-Dimer 414.52 H Heparin Anti-Xa Level ABG pH POC ABG pCO2 POC ABG pO2 ABG pO2 ABG HCO3 ABG O2 Saturation ABG Base Excess ABG Hemoglobin ABG Oxyhemoglobin VBG pH ABG Sodium ABG Potassium ABG Glucose Oxyhemoglobin Sodium Potassium Chloride Carbon Dioxide BUN Creatinine Glucose POC Glucose 179 H 213 H Lactic Acid Calcium Ferritin AST Alkaline Phosphatase Magnesium Lactate Dehydrogenase Total Creatine Kinase CK-MB (CK-2) C-Reactive Protein Total Protein Albumin Troponin T HDL Cholesterol Arterial Blood Glucose Urine WBC (Auto) Urine Creatinine Urine Total Protein Coronavirus (PCR) Crossmatch 06/04/20 06/05/20 06/05/20 18:25 00:16 05:00 WBC RBC Hgb Hct MCHC RDW Lymph % (Auto) [place] % (Auto) Eos % (Auto) Lymph # [place] # Lymph # (Auto) [place] # (Auto) Seg Neutrophils % Seg Neuts % (Manual) Lymphocytes % (Manual) Seg Neutrophils # Seg Neutrophils # Man Lymphocytes # (Manual) Monocytes % (Manual) Eosinophils % (Manual) Monocytes # (Manual) Eosinophils # (Manual) D-Dimer Heparin Anti-Xa Level ABG pH 7.286 L POC ABG pCO2 POC ABG pO2 ABG pO2 96.2 H ABG HCO3 ABG O2 Saturation ABG Base Excess -6.3 L ABG Hemoglobin 8.8 L ABG Oxyhemoglobin VBG pH ABG Sodium ABG Potassium ABG Glucose Oxyhemoglobin 94.8 L Sodium Potassium Chloride Carbon Dioxide BUN Creatinine Glucose POC Glucose 238 H 183 H Lactic Acid Calcium Ferritin AST Alkaline Phosphatase Magnesium Lactate Dehydrogenase Total Creatine Kinase CK-MB (CK-2) C-Reactive Protein Total Protein Albumin Troponin T HDL Cholesterol Arterial Blood Glucose Urine WBC (Auto) Urine Creatinine Urine Total Protein Coronavirus (PCR) Crossmatch 06/05/20 06/05/20 06/05/20 05:39 07:25 07:25 WBC RBC 2.97 L Hgb 8.7 L Hct 25.7 L MCHC RDW 16.0 H Lymph % (Auto) 8.8 L [place] % (Auto) 13.3 H Eos % (Auto) Lymph # 0.8 L [place] # 1.3 H Lymph # (Auto) [place] # (Auto) Seg Neutrophils % 77.3 H Seg Neuts % (Manual) Lymphocytes % (Manual) Seg Neutrophils # Seg Neutrophils # Man Lymphocytes # (Manual) Monocytes % (Manual) Eosinophils % (Manual) Monocytes # (Manual) Eosinophils # (Manual) D-Dimer Heparin Anti-Xa Level ABG pH POC ABG pCO2 POC ABG pO2 ABG pO2 ABG HCO3 ABG O2 Saturation ABG Base Excess ABG Hemoglobin ABG Oxyhemoglobin VBG pH ABG Sodium ABG Potassium ABG Glucose Oxyhemoglobin Sodium 133 L Potassium Chloride Carbon Dioxide 17 L BUN 89 H Creatinine 2.8 H Glucose 176 H POC Glucose 149 H Lactic Acid Calcium 7.7 L Ferritin AST Alkaline Phosphatase Magnesium Lactate Dehydrogenase Total Creatine Kinase CK-MB (CK-2) C-Reactive Protein Total Protein 4.2 L Albumin 1.9 L Troponin T HDL Cholesterol Arterial Blood Glucose Urine WBC (Auto) Urine Creatinine Urine Total Protein Coronavirus (PCR) Crossmatch 06/05/20 06/05/20 06/05/20 07:25 12:05 15:41 WBC RBC Hgb Hct MCHC RDW Lymph % (Auto) [place] % (Auto) Eos % (Auto) Lymph # [place] # Lymph # (Auto) [place] # (Auto) Seg Neutrophils % Seg Neuts % (Manual) Lymphocytes % (Manual) Seg Neutrophils # Seg Neutrophils # Man Lymphocytes # (Manual) Monocytes % (Manual) Eosinophils % (Manual) Monocytes # (Manual) Eosinophils # (Manual) D-Dimer Heparin Anti-Xa Level 0.76 H 0.81 H ABG pH POC ABG pCO2 POC ABG pO2 ABG pO2 ABG HCO3 ABG O2 Saturation ABG Base Excess ABG Hemoglobin ABG Oxyhemoglobin VBG pH ABG Sodium ABG Potassium ABG Glucose Oxyhemoglobin Sodium Potassium Chloride Carbon Dioxide BUN Creatinine Glucose POC Glucose 198 H Lactic Acid Calcium Ferritin AST Alkaline Phosphatase Magnesium Lactate Dehydrogenase Total Creatine Kinase CK-MB (CK-2) C-Reactive Protein Total Protein Albumin Troponin T HDL Cholesterol Arterial Blood Glucose Urine WBC (Auto) Urine Creatinine Urine Total Protein Coronavirus (PCR) Crossmatch 06/05/20 06/05/20 06/06/20 18:08 23:25 04:00 WBC RBC Hgb Hct MCHC RDW Lymph % (Auto) [place] % (Auto) Eos % (Auto) Lymph # [place] # Lymph # (Auto) [place] # (Auto) Seg Neutrophils % Seg Neuts % (Manual) Lymphocytes % (Manual) Seg Neutrophils # Seg Neutrophils # Man Lymphocytes # (Manual) Monocytes % (Manual) Eosinophils % (Manual) Monocytes # (Manual) Eosinophils # (Manual) D-Dimer Heparin Anti-Xa Level ABG pH POC ABG pCO2 POC ABG pO2 ABG pO2 ABG HCO3 ABG O2 Saturation ABG Base Excess ABG Hemoglobin ABG Oxyhemoglobin VBG pH ABG Sodium ABG Potassium ABG Glucose Oxyhemoglobin Sodium Potassium Chloride Carbon Dioxide BUN Creatinine Glucose POC Glucose 223 H 169 H Lactic Acid Calcium Ferritin AST Alkaline Phosphatase Magnesium Lactate Dehydrogenase Total Creatine Kinase CK-MB (CK-2) C-Reactive Protein Total Protein Albumin Troponin T HDL Cholesterol Arterial Blood Glucose Urine WBC (Auto) 15.0 H Urine Creatinine Urine Total Protein Coronavirus (PCR) Crossmatch 06/06/20 06/06/20 06/06/20 04:00 05:33 05:38 WBC RBC 2.97 L Hgb 8.7 L Hct 26.8 L MCHC RDW 16.8 H Lymph % (Auto) [place] % (Auto) Eos % (Auto) Lymph # [place] # Lymph # (Auto) [place] # (Auto) Seg Neutrophils % Seg Neuts % (Manual) Lymphocytes % (Manual) Seg Neutrophils # Seg Neutrophils # Man Lymphocytes # (Manual) Monocytes % (Manual) Eosinophils % (Manual) Monocytes # (Manual) Eosinophils # (Manual) D-Dimer Heparin Anti-Xa Level ABG pH POC ABG pCO2 POC ABG pO2 ABG pO2 ABG HCO3 ABG O2 Saturation ABG Base Excess ABG Hemoglobin ABG Oxyhemoglobin VBG pH ABG Sodium ABG Potassium ABG Glucose Oxyhemoglobin Sodium Potassium Chloride Carbon Dioxide BUN Creatinine Glucose POC Glucose 186 H Lactic Acid Calcium Ferritin AST Alkaline Phosphatase Magnesium Lactate Dehydrogenase Total Creatine Kinase CK-MB (CK-2) C-Reactive Protein Total Protein Albumin Troponin T HDL Cholesterol Arterial Blood Glucose Urine WBC (Auto) Urine Creatinine 82.2 H Urine Total Protein 196 H Coronavirus (PCR) Crossmatch 06/06/20 06/06/20 06/06/20 05:38 12:25 17:03 WBC RBC Hgb Hct MCHC RDW Lymph % (Auto) [place] % (Auto) Eos % (Auto) Lymph # [place] # Lymph # (Auto) [place] # (Auto) Seg Neutrophils % Seg Neuts % (Manual) Lymphocytes % (Manual) Seg Neutrophils # Seg Neutrophils # Man Lymphocytes # (Manual) Monocytes % (Manual) Eosinophils % (Manual) Monocytes # (Manual) Eosinophils # (Manual) D-Dimer Heparin Anti-Xa Level ABG pH POC ABG pCO2 POC ABG pO2 ABG pO2 ABG HCO3 ABG O2 Saturation ABG Base Excess ABG Hemoglobin ABG Oxyhemoglobin VBG pH ABG Sodium ABG Potassium ABG Glucose Oxyhemoglobin Sodium 134 L Potassium 5.2 H Chloride Carbon Dioxide 18 L BUN 97 H Creatinine 2.5 H Glucose 193 H POC Glucose 239 H 252 H Lactic Acid Calcium 7.5 L Ferritin AST Alkaline Phosphatase Magnesium Lactate Dehydrogenase Total Creatine Kinase CK-MB (CK-2) C-Reactive Protein Total Protein 4.1 L Albumin 1.9 L Troponin T HDL Cholesterol Arterial Blood Glucose Urine WBC (Auto) Urine Creatinine Urine Total Protein Coronavirus (PCR) Crossmatch 06/07/20 06/07/20 06/07/20 00:16 01:49 04:00 WBC RBC 2.91 L Hgb 8.4 L Hct 25.0 L MCHC RDW 16.1 H Lymph % (Auto) 5.7 L [place] % (Auto) 10.5 H Eos % (Auto) Lymph # 0.6 L [place] # 1.1 H Lymph # (Auto) [place] # (Auto) Seg Neutrophils % 83.6 H Seg Neuts % (Manual) Lymphocytes % (Manual) Seg Neutrophils # 9.1 H Seg Neutrophils # Man Lymphocytes # (Manual) Monocytes % (Manual) Eosinophils % (Manual) Monocytes # (Manual) Eosinophils # (Manual) D-Dimer Heparin Anti-Xa Level 0.26 L ABG pH POC ABG pCO2 POC ABG pO2 ABG pO2 ABG HCO3 ABG O2 Saturation ABG Base Excess ABG Hemoglobin ABG Oxyhemoglobin VBG pH ABG Sodium ABG Potassium ABG Glucose Oxyhemoglobin Sodium Potassium Chloride Carbon Dioxide BUN Creatinine Glucose POC Glucose 173 H Lactic Acid Calcium Ferritin AST Alkaline Phosphatase Magnesium Lactate Dehydrogenase Total Creatine Kinase CK-MB (CK-2) C-Reactive Protein Total Protein Albumin Troponin T HDL Cholesterol Arterial Blood Glucose Urine WBC (Auto) Urine Creatinine Urine Total Protein Coronavirus (PCR) Crossmatch 06/07/20 06/07/20 06/07/20 04:00 04:54 05:51 WBC RBC Hgb Hct MCHC RDW Lymph % (Auto) [place] % (Auto) Eos % (Auto) Lymph # [place] # Lymph # (Auto) [place] # (Auto) Seg Neutrophils % Seg Neuts % (Manual) Lymphocytes % (Manual) Seg Neutrophils # Seg Neutrophils # Man Lymphocytes # (Manual) Monocytes % (Manual) Eosinophils % (Manual) Monocytes # (Manual) Eosinophils # (Manual) D-Dimer Heparin Anti-Xa Level ABG pH 7.317 L POC ABG pCO2 POC ABG pO2 ABG pO2 71.4 L ABG HCO3 ABG O2 Saturation 94.3 L ABG Base Excess -4.8 L ABG Hemoglobin 7.1 L ABG Oxyhemoglobin VBG pH ABG Sodium ABG Potassium ABG Glucose Oxyhemoglobin 92.2 L Sodium 133 L Potassium Chloride Carbon Dioxide 18 L BUN 100 H Creatinine 2.5 H Glucose 158 H POC Glucose 168 H Lactic Acid Calcium 7.6 L Ferritin AST Alkaline Phosphatase Magnesium Lactate Dehydrogenase Total Creatine Kinase CK-MB (CK-2) C-Reactive Protein Total Protein 4.7 L Albumin 2.0 L Troponin T HDL Cholesterol Arterial Blood Glucose Urine WBC (Auto) Urine Creatinine Urine Total Protein Coronavirus (PCR) Crossmatch 06/07/20 06/07/20 06/07/20 12:03 17:17 20:10 WBC RBC Hgb Hct MCHC RDW Lymph % (Auto) [place] % (Auto) Eos % (Auto) Lymph # [place] # Lymph # (Auto) [place] # (Auto) Seg Neutrophils % Seg Neuts % (Manual) Lymphocytes % (Manual) Seg Neutrophils # Seg Neutrophils # Man Lymphocytes # (Manual) Monocytes % (Manual) Eosinophils % (Manual) Monocytes # (Manual) Eosinophils # (Manual) D-Dimer Heparin Anti-Xa Level 0.17 L ABG pH POC ABG pCO2 POC ABG pO2 ABG pO2 ABG HCO3 ABG O2 Saturation ABG Base Excess ABG Hemoglobin ABG Oxyhemoglobin VBG pH ABG Sodium ABG Potassium ABG Glucose Oxyhemoglobin Sodium Potassium Chloride Carbon Dioxide BUN Creatinine Glucose POC Glucose 276 H 281 H Lactic Acid Calcium Ferritin AST Alkaline Phosphatase Magnesium Lactate Dehydrogenase Total Creatine Kinase CK-MB (CK-2) C-Reactive Protein Total Protein Albumin Troponin T HDL Cholesterol Arterial Blood Glucose Urine WBC (Auto) Urine Creatinine Urine Total Protein Coronavirus (PCR) Crossmatch 06/08/20 06/08/20 06/08/20 00:02 04:47 04:47 WBC 16.4 H RBC 3.07 L Hgb 8.6 L Hct 26.5 L MCHC RDW 16.3 H Lymph % (Auto) [place] % (Auto) Eos % (Auto) Lymph # [place] # Lymph # (Auto) [place] # (Auto) Seg Neutrophils % Seg Neuts % (Manual) 90.0 H Lymphocytes % (Manual) 3.0 L Seg Neutrophils # Seg Neutrophils # Man 14.8 H Lymphocytes # (Manual) 0.5 L Monocytes % (Manual) Eosinophils % (Manual) Monocytes # (Manual) 1.1 H Eosinophils # (Manual) D-Dimer Heparin Anti-Xa Level ABG pH POC ABG pCO2 POC ABG pO2 ABG pO2 ABG HCO3 ABG O2 Saturation ABG Base Excess ABG Hemoglobin ABG Oxyhemoglobin VBG pH ABG Sodium ABG Potassium ABG Glucose Oxyhemoglobin Sodium 129 L Potassium Chloride 95.6 L Carbon Dioxide 17 L BUN 106 H Creatinine 2.5 H Glucose 213 H POC Glucose 242 H Lactic Acid Calcium 7.6 L Ferritin AST Alkaline Phosphatase Magnesium Lactate Dehydrogenase Total Creatine Kinase CK-MB (CK-2) C-Reactive Protein Total Protein 5.0 L Albumin 2.1 L Troponin T HDL Cholesterol Arterial Blood Glucose Urine WBC (Auto) Urine Creatinine Urine Total Protein Coronavirus (PCR) Crossmatch 06/08/20 06/08/20 06/08/20 05:40 11:55 17:54 WBC RBC Hgb Hct MCHC RDW Lymph % (Auto) [place] % (Auto) Eos % (Auto) Lymph # [place] # Lymph # (Auto) [place] # (Auto) Seg Neutrophils % Seg Neuts % (Manual) Lymphocytes % (Manual) Seg Neutrophils # Seg Neutrophils # Man Lymphocytes # (Manual) Monocytes % (Manual) Eosinophils % (Manual) Monocytes # (Manual) Eosinophils # (Manual) D-Dimer Heparin Anti-Xa Level ABG pH POC ABG pCO2 POC ABG pO2 ABG pO2 ABG HCO3 ABG O2 Saturation ABG Base Excess ABG Hemoglobin ABG Oxyhemoglobin VBG pH ABG Sodium ABG Potassium ABG Glucose Oxyhemoglobin Sodium Potassium Chloride Carbon Dioxide BUN Creatinine Glucose POC Glucose 221 H 218 H 163 H Lactic Acid Calcium Ferritin AST Alkaline Phosphatase Magnesium Lactate Dehydrogenase Total Creatine Kinase CK-MB (CK-2) C-Reactive Protein Total Protein Albumin Troponin T HDL Cholesterol Arterial Blood Glucose Urine WBC (Auto) Urine Creatinine Urine Total Protein Coronavirus (PCR) Crossmatch 0806/09/20 06/09/20 22:01 00:09 05:16 WBC 19.0 H RBC 3.35 L Hgb 9.2 L Hct 28.5 L MCHC RDW 16.3 H Lymph % (Auto) [place] % (Auto) Eos % (Auto) Lymph # [place] # Lymph # (Auto) [place] # (Auto) Seg Neutrophils % Seg Neuts % (Manual) 85.0 H Lymphocytes % (Manual) 7.0 L Seg Neutrophils # Seg Neutrophils # Man 16.2 H Lymphocytes # (Manual) Monocytes % (Manual) Eosinophils % (Manual) Monocytes # (Manual) 1.3 H Eosinophils # (Manual) D-Dimer Heparin Anti-Xa Level ABG pH POC ABG pCO2 POC ABG pO2 ABG pO2 ABG HCO3 ABG O2 Saturation ABG Base Excess ABG Hemoglobin ABG Oxyhemoglobin VBG pH ABG Sodium ABG Potassium ABG Glucose Oxyhemoglobin Sodium Potassium Chloride Carbon Dioxide BUN Creatinine Glucose POC Glucose 182 H 150 H Lactic Acid Calcium Ferritin AST Alkaline Phosphatase Magnesium Lactate Dehydrogenase Total Creatine Kinase CK-MB (CK-2) C-Reactive Protein Total Protein Albumin Troponin T HDL Cholesterol Arterial Blood Glucose Urine WBC (Auto) Urine Creatinine Urine Total Protein Coronavirus (PCR) Crossmatch 06/09/20 06/09/20 06/09/20 05:16 05:24 11:29 WBC RBC Hgb Hct MCHC RDW Lymph % (Auto) [place] % (Auto) Eos % (Auto) Lymph # [place] # Lymph # (Auto) [place] # (Auto) Seg Neutrophils % Seg Neuts % (Manual) Lymphocytes % (Manual) Seg Neutrophils # Seg Neutrophils # Man Lymphocytes # (Manual) Monocytes % (Manual) Eosinophils % (Manual) Monocytes # (Manual) Eosinophils # (Manual) D-Dimer Heparin Anti-Xa Level ABG pH POC ABG pCO2 POC ABG pO2 ABG pO2 ABG HCO3 ABG O2 Saturation ABG Base Excess ABG Hemoglobin ABG Oxyhemoglobin VBG pH ABG Sodium ABG Potassium ABG Glucose Oxyhemoglobin Sodium 133 L Potassium Chloride Carbon Dioxide 19 L BUN 109 H Creatinine 2.1 H Glucose 133 H POC Glucose 128 H 119 H Lactic Acid Calcium 7.7 L Ferritin AST Alkaline Phosphatase < 5 L Magnesium Lactate Dehydrogenase Total Creatine Kinase CK-MB (CK-2) C-Reactive Protein Total Protein 4.6 L Albumin < 0.2 L Troponin T HDL Cholesterol Arterial Blood Glucose Urine WBC (Auto) Urine Creatinine Urine Total Protein Coronavirus (PCR) Crossmatch 06/09/20 06/10/20 06/10/20 17:32 00:00 05:49 WBC RBC Hgb Hct MCHC RDW Lymph % (Auto) [place] % (Auto) Eos % (Auto) Lymph # [place] # Lymph # (Auto) [place] # (Auto) Seg Neutrophils % Seg Neuts % (Manual) Lymphocytes % (Manual) Seg Neutrophils # Seg Neutrophils # Man Lymphocytes # (Manual) Monocytes % (Manual) Eosinophils % (Manual) Monocytes # (Manual) Eosinophils # (Manual) D-Dimer Heparin Anti-Xa Level 0.19 L ABG pH POC ABG pCO2 POC ABG pO2 ABG pO2 ABG HCO3 ABG O2 Saturation ABG Base Excess ABG Hemoglobin ABG Oxyhemoglobin VBG pH ABG Sodium ABG Potassium ABG Glucose Oxyhemoglobin Sodium Potassium Chloride Carbon Dioxide BUN Creatinine Glucose POC Glucose 106 H 117 H Lactic Acid Calcium Ferritin AST Alkaline Phosphatase Magnesium Lactate Dehydrogenase Total Creatine Kinase CK-MB (CK-2) C-Reactive Protein Total Protein Albumin Troponin T HDL Cholesterol Arterial Blood Glucose Urine WBC (Auto) Urine Creatinine Urine Total Protein Coronavirus (PCR) Crossmatch 06/10/20 06/10/20 06/10/20 05:54 07:40 11:40 WBC RBC Hgb Hct MCHC RDW Lymph % (Auto) [place] % (Auto) Eos % (Auto) Lymph # [place] # Lymph # (Auto) [place] # (Auto) Seg Neutrophils % Seg Neuts % (Manual) Lymphocytes % (Manual) Seg Neutrophils # Seg Neutrophils # Man Lymphocytes # (Manual) Monocytes % (Manual) Eosinophils % (Manual) Monocytes # (Manual) Eosinophils # (Manual) D-Dimer Heparin Anti-Xa Level ABG pH POC ABG pCO2 POC ABG pO2 ABG pO2 ABG HCO3 ABG O2 Saturation ABG Base Excess ABG Hemoglobin ABG Oxyhemoglobin VBG pH ABG Sodium ABG Potassium ABG Glucose Oxyhemoglobin Sodium 146 H D Potassium Chloride Carbon Dioxide 20 L BUN 99 H Creatinine 1.9 H Glucose 121 H POC Glucose 127 H 138 H Lactic Acid Calcium 8.2 L Ferritin AST Alkaline Phosphatase Magnesium Lactate Dehydrogenase Total Creatine Kinase CK-MB (CK-2) C-Reactive Protein Total Protein Albumin Troponin T HDL Cholesterol Arterial Blood Glucose Urine WBC (Auto) Urine Creatinine Urine Total Protein Coronavirus (PCR) Crossmatch 06/10/20 06/10/20 06/10/20 14:44 17:31 23:22 WBC RBC Hgb Hct MCHC RDW Lymph % (Auto) [place] % (Auto) Eos % (Auto) Lymph # [place] # Lymph # (Auto) [place] # (Auto) Seg Neutrophils % Seg Neuts % (Manual) Lymphocytes % (Manual) Seg Neutrophils # Seg Neutrophils # Man Lymphocytes # (Manual) Monocytes % (Manual) Eosinophils % (Manual) Monocytes # (Manual) Eosinophils # (Manual) D-Dimer Heparin Anti-Xa Level 0.17 L ABG pH POC ABG pCO2 POC ABG pO2 ABG pO2 ABG HCO3 ABG O2 Saturation ABG Base Excess ABG Hemoglobin ABG Oxyhemoglobin VBG pH ABG Sodium ABG Potassium ABG Glucose Oxyhemoglobin Sodium Potassium Chloride Carbon Dioxide BUN Creatinine Glucose POC Glucose 128 H 114 H Lactic Acid Calcium Ferritin AST Alkaline Phosphatase Magnesium Lactate Dehydrogenase Total Creatine Kinase CK-MB (CK-2) C-Reactive Protein Total Protein Albumin Troponin T HDL Cholesterol Arterial Blood Glucose Urine WBC (Auto) Urine Creatinine Urine Total Protein Coronavirus (PCR) Crossmatch 06/11/20 06/11/20 06/11/20 00:22 03:45 03:45 WBC 14.6 H RBC 2.77 L Hgb 7.9 L Hct 24.3 L MCHC RDW 16.8 H Lymph % (Auto) 6.6 L [place] % (Auto) 8.5 H Eos % (Auto) Lymph # 1.0 L [place] # 1.2 H Lymph # (Auto) [place] # (Auto) Seg Neutrophils % 82.9 H Seg Neuts % (Manual) Lymphocytes % (Manual) Seg Neutrophils # 12.1 H Seg Neutrophils # Man Lymphocytes # (Manual) Monocytes % (Manual) Eosinophils % (Manual) Monocytes # (Manual) Eosinophils # (Manual) D-Dimer Heparin Anti-Xa Level 0.24 L ABG pH POC ABG pCO2 POC ABG pO2 ABG pO2 ABG HCO3 ABG O2 Saturation ABG Base Excess ABG Hemoglobin ABG Oxyhemoglobin VBG pH ABG Sodium ABG Potassium ABG Glucose Oxyhemoglobin Sodium Potassium Chloride Carbon Dioxide 20 L BUN 88 H Creatinine 1.5 H Glucose 111 H POC Glucose Lactic Acid Calcium 8.2 L Ferritin AST Alkaline Phosphatase Magnesium Lactate Dehydrogenase Total Creatine Kinase CK-MB (CK-2) C-Reactive Protein Total Protein Albumin Troponin T HDL Cholesterol Arterial Blood Glucose Urine WBC (Auto) Urine Creatinine Urine Total Protein Coronavirus (PCR) Crossmatch 06/11/20 06/11/20 06/11/20 06:03 10:22 11:11 WBC RBC Hgb Hct MCHC RDW Lymph % (Auto) [place] % (Auto) Eos % (Auto) Lymph # [place] # Lymph # (Auto) [place] # (Auto) Seg Neutrophils % Seg Neuts % (Manual) Lymphocytes % (Manual) Seg Neutrophils # Seg Neutrophils # Man Lymphocytes # (Manual) Monocytes % (Manual) Eosinophils % (Manual) Monocytes # (Manual) Eosinophils # (Manual) D-Dimer Heparin Anti-Xa Level 0.26 L ABG pH POC ABG pCO2 POC ABG pO2 ABG pO2 ABG HCO3 ABG O2 Saturation ABG Base Excess ABG Hemoglobin 9.6 L ABG Oxyhemoglobin VBG pH ABG Sodium ABG Potassium ABG Glucose Oxyhemoglobin Sodium Potassium Chloride Carbon Dioxide BUN Creatinine Glucose POC Glucose 114 H Lactic Acid Calcium Ferritin AST Alkaline Phosphatase Magnesium Lactate Dehydrogenase Total Creatine Kinase CK-MB (CK-2) C-Reactive Protein Total Protein Albumin Troponin T HDL Cholesterol Arterial Blood Glucose Urine WBC (Auto) Urine Creatinine Urine Total Protein Coronavirus (PCR) Crossmatch 06/11/20 06/11/20 06/12/20 12:24 17:24 00:21 WBC RBC Hgb Hct MCHC RDW Lymph % (Auto) [place] % (Auto) Eos % (Auto) Lymph # [place] # Lymph # (Auto) [place] # (Auto) Seg Neutrophils % Seg Neuts % (Manual) Lymphocytes % (Manual) Seg Neutrophils # Seg Neutrophils # Man Lymphocytes # (Manual) Monocytes % (Manual) Eosinophils % (Manual) Monocytes # (Manual) Eosinophils # (Manual) D-Dimer Heparin Anti-Xa Level ABG pH POC ABG pCO2 POC ABG pO2 ABG pO2 ABG HCO3 ABG O2 Saturation ABG Base Excess ABG Hemoglobin ABG Oxyhemoglobin VBG pH ABG Sodium ABG Potassium ABG Glucose Oxyhemoglobin Sodium Potassium Chloride Carbon Dioxide BUN Creatinine Glucose POC Glucose 119 H 126 H 117 H Lactic Acid Calcium Ferritin AST Alkaline Phosphatase Magnesium Lactate Dehydrogenase Total Creatine Kinase CK-MB (CK-2) C-Reactive Protein Total Protein Albumin Troponin T HDL Cholesterol Arterial Blood Glucose Urine WBC (Auto) Urine Creatinine Urine Total Protein Coronavirus (PCR) Crossmatch 06/12/20 06/12/20 06/12/20 02:46 02:46 05:46 WBC 13.2 H RBC 2.83 L Hgb 8.3 L Hct 24.3 L MCHC RDW 16.6 H Lymph % (Auto) 6.2 L [place] % (Auto) 9.5 H Eos % (Auto) Lymph # 0.8 L [place] # 1.3 H Lymph # (Auto) [place] # (Auto) Seg Neutrophils % 81.9 H Seg Neuts % (Manual) Lymphocytes % (Manual) Seg Neutrophils # 10.9 H Seg Neutrophils # Man Lymphocytes # (Manual) Monocytes % (Manual) Eosinophils % (Manual) Monocytes # (Manual) Eosinophils # (Manual) D-Dimer Heparin Anti-Xa Level ABG pH POC ABG pCO2 POC ABG pO2 ABG pO2 ABG HCO3 ABG O2 Saturation ABG Base Excess ABG Hemoglobin ABG Oxyhemoglobin VBG pH ABG Sodium ABG Potassium ABG Glucose Oxyhemoglobin Sodium Potassium 3.5 L Chloride Carbon Dioxide BUN 77 H Creatinine 1.3 H Glucose POC Glucose 132 H Lactic Acid Calcium 8.3 L Ferritin AST Alkaline Phosphatase Magnesium Lactate Dehydrogenase Total Creatine Kinase CK-MB (CK-2) C-Reactive Protein Total Protein Albumin Troponin T HDL Cholesterol Arterial Blood Glucose Urine WBC (Auto) Urine Creatinine Urine Total Protein Coronavirus (PCR) Crossmatch 06/12/20 06/12/20 06/12/20 09:20 12:16 17:48 WBC RBC Hgb Hct MCHC RDW Lymph % (Auto) [place] % (Auto) Eos % (Auto) Lymph # [place] # Lymph # (Auto) [place] # (Auto) Seg Neutrophils % Seg Neuts % (Manual) Lymphocytes % (Manual) Seg Neutrophils # Seg Neutrophils # Man Lymphocytes # (Manual) Monocytes % (Manual) Eosinophils % (Manual) Monocytes # (Manual) Eosinophils # (Manual) D-Dimer Heparin Anti-Xa Level ABG pH POC ABG pCO2 POC ABG pO2 ABG pO2 91.1 H ABG HCO3 ABG O2 Saturation ABG Base Excess ABG Hemoglobin ABG Oxyhemoglobin VBG pH ABG Sodium ABG Potassium ABG Glucose Oxyhemoglobin 94.8 L Sodium Potassium Chloride Carbon Dioxide BUN Creatinine Glucose POC Glucose 167 H 182 H Lactic Acid Calcium Ferritin AST Alkaline Phosphatase Magnesium Lactate Dehydrogenase Total Creatine Kinase CK-MB (CK-2) C-Reactive Protein Total Protein Albumin Troponin T HDL Cholesterol Arterial Blood Glucose Urine WBC (Auto) Urine Creatinine Urine Total Protein Coronavirus (PCR) Crossmatch 06/13/20 06/13/20 06/13/20 00:08 05:37 09:09 WBC RBC Hgb Hct MCHC RDW Lymph % (Auto) [place] % (Auto) Eos % (Auto) Lymph # [place] # Lymph # (Auto) [place] # (Auto) Seg Neutrophils % Seg Neuts % (Manual) Lymphocytes % (Manual) Seg Neutrophils # Seg Neutrophils # Man Lymphocytes # (Manual) Monocytes % (Manual) Eosinophils % (Manual) Monocytes # (Manual) Eosinophils # (Manual) D-Dimer Heparin Anti-Xa Level 0.86 H ABG pH POC ABG pCO2 POC ABG pO2 ABG pO2 ABG HCO3 ABG O2 Saturation ABG Base Excess ABG Hemoglobin ABG Oxyhemoglobin VBG pH ABG Sodium ABG Potassium ABG Glucose Oxyhemoglobin Sodium Potassium Chloride Carbon Dioxide BUN Creatinine Glucose POC Glucose 142 H 119 H Lactic Acid Calcium Ferritin AST Alkaline Phosphatase Magnesium Lactate Dehydrogenase Total Creatine Kinase CK-MB (CK-2) C-Reactive Protein Total Protein Albumin Troponin T HDL Cholesterol Arterial Blood Glucose Urine WBC (Auto) Urine Creatinine Urine Total Protein Coronavirus (PCR) Crossmatch 06/13/20 06/13/20 06/13/20 12:28 17:55 21:17 WBC RBC Hgb Hct MCHC RDW Lymph % (Auto) [place] % (Auto) Eos % (Auto) Lymph # [place] # Lymph # (Auto) [place] # (Auto) Seg Neutrophils % Seg Neuts % (Manual) Lymphocytes % (Manual) Seg Neutrophils # Seg Neutrophils # Man Lymphocytes # (Manual) Monocytes % (Manual) Eosinophils % (Manual) Monocytes # (Manual) Eosinophils # (Manual) D-Dimer Heparin Anti-Xa Level ABG pH POC ABG pCO2 POC ABG pO2 ABG pO2 ABG HCO3 ABG O2 Saturation ABG Base Excess ABG Hemoglobin ABG Oxyhemoglobin VBG pH ABG Sodium ABG Potassium ABG Glucose Oxyhemoglobin Sodium Potassium Chloride Carbon Dioxide BUN 61 H Creatinine Glucose 131 H POC Glucose 165 H 174 H Lactic Acid Calcium Ferritin AST Alkaline Phosphatase Magnesium Lactate Dehydrogenase Total Creatine Kinase CK-MB (CK-2) C-Reactive Protein Total Protein Albumin Troponin T HDL Cholesterol Arterial Blood Glucose Urine WBC (Auto) Urine Creatinine Urine Total Protein Coronavirus (PCR) Crossmatch 06/13/20 06/13/20 06/14/20 21:17 23:50 05:34 WBC RBC Hgb Hct MCHC RDW Lymph % (Auto) [place] % (Auto) Eos % (Auto) Lymph # [place] # Lymph # (Auto) [place] # (Auto) Seg Neutrophils % Seg Neuts % (Manual) Lymphocytes % (Manual) Seg Neutrophils # Seg Neutrophils # Man Lymphocytes # (Manual) Monocytes % (Manual) Eosinophils % (Manual) Monocytes # (Manual) Eosinophils # (Manual) D-Dimer Heparin Anti-Xa Level 0.72 H ABG pH POC ABG pCO2 POC ABG pO2 ABG pO2 ABG HCO3 ABG O2 Saturation ABG Base Excess ABG Hemoglobin ABG Oxyhemoglobin VBG pH ABG Sodium ABG Potassium ABG Glucose Oxyhemoglobin Sodium 146 H Potassium Chloride 107.6 H Carbon Dioxide BUN 61 H Creatinine 1.3 H Glucose 135 H POC Glucose 146 H Lactic Acid Calcium Ferritin AST Alkaline Phosphatase Magnesium Lactate Dehydrogenase Total Creatine Kinase CK-MB (CK-2) C-Reactive Protein Total Protein Albumin Troponin T HDL Cholesterol Arterial Blood Glucose Urine WBC (Auto) Urine Creatinine Urine Total Protein Coronavirus (PCR) Crossmatch 06/14/20 06/14/20 06/14/20 06:11 09:28 11:30 WBC RBC Hgb Hct MCHC RDW Lymph % (Auto) [place] % (Auto) Eos % (Auto) Lymph # [place] # Lymph # (Auto) [place] # (Auto) Seg Neutrophils % Seg Neuts % (Manual) Lymphocytes % (Manual) Seg Neutrophils # Seg Neutrophils # Man Lymphocytes # (Manual) Monocytes % (Manual) Eosinophils % (Manual) Monocytes # (Manual) Eosinophils # (Manual) D-Dimer Heparin Anti-Xa Level 0.90 H ABG pH POC ABG pCO2 POC ABG pO2 ABG pO2 ABG HCO3 ABG O2 Saturation ABG Base Excess ABG Hemoglobin ABG Oxyhemoglobin VBG pH ABG Sodium ABG Potassium ABG Glucose Oxyhemoglobin Sodium Potassium Chloride Carbon Dioxide BUN Creatinine Glucose POC Glucose 141 H 186 H Lactic Acid Calcium Ferritin AST Alkaline Phosphatase Magnesium Lactate Dehydrogenase Total Creatine Kinase CK-MB (CK-2) C-Reactive Protein Total Protein Albumin Troponin T HDL Cholesterol Arterial Blood Glucose Urine WBC (Auto) Urine Creatinine Urine Total Protein Coronavirus (PCR) Crossmatch 06/14/20 06/14/20 06/14/20 16:07 18:16 23:51 WBC RBC Hgb Hct MCHC RDW Lymph % (Auto) [place] % (Auto) Eos % (Auto) Lymph # [place] # Lymph # (Auto) [place] # (Auto) Seg Neutrophils % Seg Neuts % (Manual) Lymphocytes % (Manual) Seg Neutrophils # Seg Neutrophils # Man Lymphocytes # (Manual) Monocytes % (Manual) Eosinophils % (Manual) Monocytes # (Manual) Eosinophils # (Manual) D-Dimer Heparin Anti-Xa Level 0.82 H ABG pH POC ABG pCO2 POC ABG pO2 ABG pO2 ABG HCO3 ABG O2 Saturation ABG Base Excess ABG Hemoglobin ABG Oxyhemoglobin VBG pH ABG Sodium ABG Potassium ABG Glucose Oxyhemoglobin Sodium Potassium Chloride Carbon Dioxide BUN Creatinine Glucose POC Glucose 106 H 154 H Lactic Acid Calcium Ferritin AST Alkaline Phosphatase Magnesium Lactate Dehydrogenase Total Creatine Kinase CK-MB (CK-2) C-Reactive Protein Total Protein Albumin Troponin T HDL Cholesterol Arterial Blood Glucose Urine WBC (Auto) Urine Creatinine Urine Total Protein Coronavirus (PCR) Crossmatch 06/15/20 06/15/20 06/15/20 04:24 04:24 05:59 WBC RBC 2.75 L Hgb 7.9 L Hct 24.0 L MCHC RDW 16.4 H Lymph % (Auto) 12.9 L [place] % (Auto) 8.7 H Eos % (Auto) 4.6 H Lymph # 1.1 L [place] # Lymph # (Auto) [place] # (Auto) Seg Neutrophils % 73.2 H Seg Neuts % (Manual) Lymphocytes % (Manual) Seg Neutrophils # Seg Neutrophils # Man Lymphocytes # (Manual) Monocytes % (Manual) Eosinophils % (Manual) Monocytes # (Manual) Eosinophils # (Manual) D-Dimer Heparin Anti-Xa Level ABG pH POC ABG pCO2 POC ABG pO2 ABG pO2 ABG HCO3 ABG O2 Saturation ABG Base Excess ABG Hemoglobin ABG Oxyhemoglobin VBG pH ABG Sodium ABG Potassium ABG Glucose Oxyhemoglobin Sodium Potassium 3.4 L Chloride Carbon Dioxide BUN 55 H Creatinine 1.3 H Glucose 142 H POC Glucose 131 H Lactic Acid Calcium Ferritin AST Alkaline Phosphatase Magnesium Lactate Dehydrogenase Total Creatine Kinase CK-MB (CK-2) C-Reactive Protein Total Protein Albumin Troponin T HDL Cholesterol Arterial Blood Glucose Urine WBC (Auto) Urine Creatinine Urine Total Protein Coronavirus (PCR) Crossmatch 06/15/20 06/15/20 06/16/20 12:33 17:07 00:22 WBC RBC Hgb Hct MCHC RDW Lymph % (Auto) [place] % (Auto) Eos % (Auto) Lymph # [place] # Lymph # (Auto) [place] # (Auto) Seg Neutrophils % Seg Neuts % (Manual) Lymphocytes % (Manual) Seg Neutrophils # Seg Neutrophils # Man Lymphocytes # (Manual) Monocytes % (Manual) Eosinophils % (Manual) Monocytes # (Manual) Eosinophils # (Manual) D-Dimer Heparin Anti-Xa Level 0.21 L ABG pH POC ABG pCO2 POC ABG pO2 ABG pO2 ABG HCO3 ABG O2 Saturation ABG Base Excess ABG Hemoglobin ABG Oxyhemoglobin VBG pH ABG Sodium ABG Potassium ABG Glucose Oxyhemoglobin Sodium Potassium Chloride Carbon Dioxide BUN Creatinine Glucose POC Glucose 180 H 185 H Lactic Acid Calcium Ferritin AST Alkaline Phosphatase Magnesium Lactate Dehydrogenase Total Creatine Kinase CK-MB (CK-2) C-Reactive Protein Total Protein Albumin Troponin T HDL Cholesterol Arterial Blood Glucose Urine WBC (Auto) Urine Creatinine Urine Total Protein Coronavirus (PCR) Crossmatch 06/16/20 06/16/20 06/16/20 01:45 08:06 09:15 WBC RBC Hgb Hct MCHC RDW Lymph % (Auto) [place] % (Auto) Eos % (Auto) Lymph # [place] # Lymph # (Auto) [place] # (Auto) Seg Neutrophils % Seg Neuts % (Manual) Lymphocytes % (Manual) Seg Neutrophils # Seg Neutrophils # Man Lymphocytes # (Manual) Monocytes % (Manual) Eosinophils % (Manual) Monocytes # (Manual) Eosinophils # (Manual) D-Dimer Heparin Anti-Xa Level ABG pH POC ABG pCO2 POC ABG pO2 ABG pO2 ABG HCO3 ABG O2 Saturation ABG Base Excess ABG Hemoglobin ABG Oxyhemoglobin VBG pH ABG Sodium ABG Potassium ABG Glucose Oxyhemoglobin Sodium Potassium Chloride Carbon Dioxide BUN 49 H Creatinine Glucose 154 H POC Glucose 140 H 171 H Lactic Acid Calcium Ferritin AST Alkaline Phosphatase Magnesium Lactate Dehydrogenase Total Creatine Kinase CK-MB (CK-2) C-Reactive Protein Total Protein Albumin Troponin T HDL Cholesterol Arterial Blood Glucose Urine WBC (Auto) Urine Creatinine Urine Total Protein Coronavirus (PCR) Crossmatch 06/16/20 06/16/20 06/16/20 10:46 12:33 17:54 WBC RBC Hgb Hct MCHC RDW Lymph % (Auto) [place] % (Auto) Eos % (Auto) Lymph # [place] # Lymph # (Auto) [place] # (Auto) Seg Neutrophils % Seg Neuts % (Manual) Lymphocytes % (Manual) Seg Neutrophils # Seg Neutrophils # Man Lymphocytes # (Manual) Monocytes % (Manual) Eosinophils % (Manual) Monocytes # (Manual) Eosinophils # (Manual) D-Dimer Heparin Anti-Xa Level 0.12 L ABG pH POC ABG pCO2 POC ABG pO2 ABG pO2 ABG HCO3 ABG O2 Saturation ABG Base Excess ABG Hemoglobin ABG Oxyhemoglobin VBG pH ABG Sodium ABG Potassium ABG Glucose Oxyhemoglobin Sodium Potassium Chloride Carbon Dioxide BUN Creatinine Glucose POC Glucose 166 H 151 H Lactic Acid Calcium Ferritin AST Alkaline Phosphatase Magnesium Lactate Dehydrogenase Total Creatine Kinase CK-MB (CK-2) C-Reactive Protein Total Protein Albumin Troponin T HDL Cholesterol Arterial Blood Glucose Urine WBC (Auto) Urine Creatinine Urine Total Protein Coronavirus (PCR) Crossmatch 06/16/20 06/17/20 06/17/20 18:47 00:00 02:19 WBC RBC Hgb Hct MCHC RDW Lymph % (Auto) [place] % (Auto) Eos % (Auto) Lymph # [place] # Lymph # (Auto) [place] # (Auto) Seg Neutrophils % Seg Neuts % (Manual) Lymphocytes % (Manual) Seg Neutrophils # Seg Neutrophils # Man Lymphocytes # (Manual) Monocytes % (Manual) Eosinophils % (Manual) Monocytes # (Manual) Eosinophils # (Manual) D-Dimer Heparin Anti-Xa Level 0.73 H 0.77 H ABG pH POC ABG pCO2 POC ABG pO2 ABG pO2 ABG HCO3 ABG O2 Saturation ABG Base Excess ABG Hemoglobin ABG Oxyhemoglobin VBG pH ABG Sodium ABG Potassium ABG Glucose Oxyhemoglobin Sodium Potassium Chloride Carbon Dioxide BUN Creatinine Glucose POC Glucose 139 H Lactic Acid Calcium Ferritin AST Alkaline Phosphatase Magnesium Lactate Dehydrogenase Total Creatine Kinase CK-MB (CK-2) C-Reactive Protein Total Protein Albumin Troponin T HDL Cholesterol Arterial Blood Glucose Urine WBC (Auto) Urine Creatinine Urine Total Protein Coronavirus (PCR) Crossmatch 06/17/20 06/17/20 06/17/20 06:07 11:42 16:43 WBC RBC Hgb Hct MCHC RDW Lymph % (Auto) [place] % (Auto) Eos % (Auto) Lymph # [place] # Lymph # (Auto) [place] # (Auto) Seg Neutrophils % Seg Neuts % (Manual) Lymphocytes % (Manual) Seg Neutrophils # Seg Neutrophils # Man Lymphocytes # (Manual) Monocytes % (Manual) Eosinophils % (Manual) Monocytes # (Manual) Eosinophils # (Manual) D-Dimer Heparin Anti-Xa Level 0.73 H ABG pH POC ABG pCO2 POC ABG pO2 ABG pO2 ABG HCO3 ABG O2 Saturation ABG Base Excess ABG Hemoglobin ABG Oxyhemoglobin VBG pH ABG Sodium ABG Potassium ABG Glucose Oxyhemoglobin Sodium Potassium Chloride Carbon Dioxide BUN Creatinine Glucose POC Glucose 169 H 169 H Lactic Acid Calcium Ferritin AST Alkaline Phosphatase Magnesium Lactate Dehydrogenase Total Creatine Kinase CK-MB (CK-2) C-Reactive Protein Total Protein Albumin Troponin T HDL Cholesterol Arterial Blood Glucose Urine WBC (Auto) Urine Creatinine Urine Total Protein Coronavirus (PCR) Crossmatch 06/17/20 06/17/20 06/17/20 18:18 23:08 23:16 WBC RBC Hgb Hct MCHC RDW Lymph % (Auto) [place] % (Auto) Eos % (Auto) Lymph # [place] # Lymph # (Auto) [place] # (Auto) Seg Neutrophils % Seg Neuts % (Manual) Lymphocytes % (Manual) Seg Neutrophils # Seg Neutrophils # Man Lymphocytes # (Manual) Monocytes % (Manual) Eosinophils % (Manual) Monocytes # (Manual) Eosinophils # (Manual) D-Dimer Heparin Anti-Xa Level 0.71 H ABG pH POC ABG pCO2 POC ABG pO2 ABG pO2 ABG HCO3 ABG O2 Saturation ABG Base Excess ABG Hemoglobin ABG Oxyhemoglobin VBG pH ABG Sodium ABG Potassium ABG Glucose Oxyhemoglobin Sodium Potassium Chloride Carbon Dioxide BUN Creatinine Glucose POC Glucose 159 H 134 H Lactic Acid Calcium Ferritin AST Alkaline Phosphatase Magnesium Lactate Dehydrogenase Total Creatine Kinase CK-MB (CK-2) C-Reactive Protein Total Protein Albumin Troponin T HDL Cholesterol Arterial Blood Glucose Urine WBC (Auto) Urine Creatinine Urine Total Protein Coronavirus (PCR) Crossmatch 06/18/20 06/18/20 06/18/20 04:42 05:52 11:50 WBC RBC Hgb Hct MCHC RDW Lymph % (Auto) [place] % (Auto) Eos % (Auto) Lymph # [place] # Lymph # (Auto) [place] # (Auto) Seg Neutrophils % Seg Neuts % (Manual) Lymphocytes % (Manual) Seg Neutrophils # Seg Neutrophils # Man Lymphocytes # (Manual) Monocytes % (Manual) Eosinophils % (Manual) Monocytes # (Manual) Eosinophils # (Manual) D-Dimer Heparin Anti-Xa Level ABG pH POC ABG pCO2 POC ABG pO2 ABG pO2 ABG HCO3 ABG O2 Saturation ABG Base Excess ABG Hemoglobin ABG Oxyhemoglobin VBG pH ABG Sodium ABG Potassium ABG Glucose Oxyhemoglobin Sodium Potassium Chloride Carbon Dioxide BUN 44 H Creatinine Glucose 115 H POC Glucose 171 H 167 H Lactic Acid Calcium Ferritin AST Alkaline Phosphatase Magnesium Lactate Dehydrogenase Total Creatine Kinase CK-MB (CK-2) C-Reactive Protein Total Protein Albumin Troponin T HDL Cholesterol Arterial Blood Glucose Urine WBC (Auto) Urine Creatinine Urine Total Protein Coronavirus (PCR) Crossmatch 06/18/20 06/19/20 06/19/20 23:46 05:48 07:52 WBC RBC Hgb Hct MCHC RDW Lymph % (Auto) [place] % (Auto) Eos % (Auto) Lymph # [place] # Lymph # (Auto) [place] # (Auto) Seg Neutrophils % Seg Neuts % (Manual) Lymphocytes % (Manual) Seg Neutrophils # Seg Neutrophils # Man Lymphocytes # (Manual) Monocytes % (Manual) Eosinophils % (Manual) Monocytes # (Manual) Eosinophils # (Manual) D-Dimer Heparin Anti-Xa Level ABG pH POC ABG pCO2 POC ABG pO2 ABG pO2 ABG HCO3 ABG O2 Saturation ABG Base Excess ABG Hemoglobin ABG Oxyhemoglobin VBG pH ABG Sodium ABG Potassium ABG Glucose Oxyhemoglobin Sodium Potassium Chloride Carbon Dioxide BUN Creatinine Glucose POC Glucose 130 H 207 H 175 H Lactic Acid Calcium Ferritin AST Alkaline Phosphatase Magnesium Lactate Dehydrogenase Total Creatine Kinase CK-MB (CK-2) C-Reactive Protein Total Protein Albumin Troponin T HDL Cholesterol Arterial Blood Glucose Urine WBC (Auto) Urine Creatinine Urine Total Protein Coronavirus (PCR) Crossmatch 06/19/20 06/19/20 06/20/20 11:42 22:54 05:17 WBC RBC Hgb Hct MCHC RDW Lymph % (Auto) [place] % (Auto) Eos % (Auto) Lymph # [place] # Lymph # (Auto) [place] # (Auto) Seg Neutrophils % Seg Neuts % (Manual) Lymphocytes % (Manual) Seg Neutrophils # Seg Neutrophils # Man Lymphocytes # (Manual) Monocytes % (Manual) Eosinophils % (Manual) Monocytes # (Manual) Eosinophils # (Manual) D-Dimer Heparin Anti-Xa Level ABG pH POC ABG pCO2 POC ABG pO2 ABG pO2 ABG HCO3 ABG O2 Saturation ABG Base Excess ABG Hemoglobin ABG Oxyhemoglobin VBG pH ABG Sodium ABG Potassium ABG Glucose Oxyhemoglobin Sodium Potassium Chloride Carbon Dioxide BUN Creatinine Glucose POC Glucose 166 H 135 H 218 H Lactic Acid Calcium Ferritin AST Alkaline Phosphatase Magnesium Lactate Dehydrogenase Total Creatine Kinase CK-MB (CK-2) C-Reactive Protein Total Protein Albumin Troponin T HDL Cholesterol Arterial Blood Glucose Urine WBC (Auto) Urine Creatinine Urine Total Protein Coronavirus (PCR) Crossmatch 06/20/20 06/20/20 06/20/20 12:04 16:25 16:35 WBC RBC Hgb Hct MCHC RDW Lymph % (Auto) [place] % (Auto) Eos % (Auto) Lymph # [place] # Lymph # (Auto) [place] # (Auto) Seg Neutrophils % Seg Neuts % (Manual) Lymphocytes % (Manual) Seg Neutrophils # Seg Neutrophils # Man Lymphocytes # (Manual) Monocytes % (Manual) Eosinophils % (Manual) Monocytes # (Manual) Eosinophils # (Manual) D-Dimer Heparin Anti-Xa Level ABG pH POC ABG pCO2 POC ABG pO2 ABG pO2 59.6 L ABG HCO3 28.7 H ABG O2 Saturation 93.5 L ABG Base Excess 3.4 H ABG Hemoglobin 7.2 L ABG Oxyhemoglobin VBG pH ABG Sodium ABG Potassium ABG Glucose Oxyhemoglobin 91.3 L Sodium Potassium Chloride Carbon Dioxide BUN Creatinine Glucose POC Glucose 194 H 137 H Lactic Acid Calcium Ferritin AST Alkaline Phosphatase Magnesium Lactate Dehydrogenase Total Creatine Kinase CK-MB (CK-2) C-Reactive Protein Total Protein Albumin Troponin T HDL Cholesterol Arterial Blood Glucose Urine WBC (Auto) Urine Creatinine Urine Total Protein Coronavirus (PCR) Crossmatch 06/20/20 06/21/20 06/21/20 23:59 06:25 12:01 WBC RBC Hgb Hct MCHC RDW Lymph % (Auto) [place] % (Auto) Eos % (Auto) Lymph # [place] # Lymph # (Auto) [place] # (Auto) Seg Neutrophils % Seg Neuts % (Manual) Lymphocytes % (Manual) Seg Neutrophils # Seg Neutrophils # Man Lymphocytes # (Manual) Monocytes % (Manual) Eosinophils % (Manual) Monocytes # (Manual) Eosinophils # (Manual) D-Dimer Heparin Anti-Xa Level ABG pH POC ABG pCO2 POC ABG pO2 ABG pO2 ABG HCO3 ABG O2 Saturation ABG Base Excess ABG Hemoglobin ABG Oxyhemoglobin VBG pH ABG Sodium ABG Potassium ABG Glucose Oxyhemoglobin Sodium Potassium Chloride Carbon Dioxide BUN Creatinine Glucose POC Glucose 156 H 177 H 195 H Lactic Acid Calcium Ferritin AST Alkaline Phosphatase Magnesium Lactate Dehydrogenase Total Creatine Kinase CK-MB (CK-2) C-Reactive Protein Total Protein Albumin Troponin T HDL Cholesterol Arterial Blood Glucose Urine WBC (Auto) Urine Creatinine Urine Total Protein Coronavirus (PCR) Crossmatch 06/21/20 06/21/20 06/22/20 17:04 21:51 05:06 WBC RBC Hgb Hct MCHC RDW Lymph % (Auto) [place] % (Auto) Eos % (Auto) Lymph # [place] # Lymph # (Auto) [place] # (Auto) Seg Neutrophils % Seg Neuts % (Manual) Lymphocytes % (Manual) Seg Neutrophils # Seg Neutrophils # Man Lymphocytes # (Manual) Monocytes % (Manual) Eosinophils % (Manual) Monocytes # (Manual) Eosinophils # (Manual) D-Dimer Heparin Anti-Xa Level ABG pH POC ABG pCO2 POC ABG pO2 ABG pO2 ABG HCO3 ABG O2 Saturation ABG Base Excess ABG Hemoglobin ABG Oxyhemoglobin VBG pH ABG Sodium ABG Potassium ABG Glucose Oxyhemoglobin Sodium Potassium Chloride Carbon Dioxide BUN Creatinine Glucose POC Glucose 156 H 154 H 167 H Lactic Acid Calcium Ferritin AST Alkaline Phosphatase Magnesium Lactate Dehydrogenase Total Creatine Kinase CK-MB (CK-2) C-Reactive Protein Total Protein Albumin Troponin T HDL Cholesterol Arterial Blood Glucose Urine WBC (Auto) Urine Creatinine Urine Total Protein Coronavirus (PCR) Crossmatch 06/22/20 06/22/20 06/22/20 11:20 15:27 16:58 WBC RBC Hgb Hct MCHC RDW Lymph % (Auto) [place] % (Auto) Eos % (Auto) Lymph # [place] # Lymph # (Auto) [place] # (Auto) Seg Neutrophils % Seg Neuts % (Manual) Lymphocytes % (Manual) Seg Neutrophils # Seg Neutrophils # Man Lymphocytes # (Manual) Monocytes % (Manual) Eosinophils % (Manual) Monocytes # (Manual) Eosinophils # (Manual) D-Dimer Heparin Anti-Xa Level ABG pH 7.206 L POC ABG pCO2 79.9 H POC ABG pO2 ABG pO2 ABG HCO3 ABG O2 Saturation ABG Base Excess ABG Hemoglobin 8.3 L ABG Oxyhemoglobin VBG pH ABG Sodium ABG Potassium ABG Glucose Oxyhemoglobin Sodium Potassium Chloride Carbon Dioxide BUN Creatinine Glucose POC Glucose 181 H 230 H Lactic Acid Calcium Ferritin AST Alkaline Phosphatase Magnesium Lactate Dehydrogenase Total Creatine Kinase CK-MB (CK-2) C-Reactive Protein Total Protein Albumin Troponin T HDL Cholesterol Arterial Blood Glucose Urine WBC (Auto) Urine Creatinine Urine Total Protein Coronavirus (PCR) Crossmatch 06/22/20 06/23/20 06/23/20 22:26 05:49 05:49 WBC RBC 2.58 L Hgb 7.4 L Hct 23.2 L MCHC RDW 17.0 H Lymph % (Auto) [place] % (Auto) 11.2 H Eos % (Auto) Lymph # 1.0 L [place] # Lymph # (Auto) [place] # (Auto) Seg Neutrophils % Seg Neuts % (Manual) Lymphocytes % (Manual) Seg Neutrophils # Seg Neutrophils # Man Lymphocytes # (Manual) Monocytes % (Manual) Eosinophils % (Manual) Monocytes # (Manual) Eosinophils # (Manual) D-Dimer Heparin Anti-Xa Level ABG pH POC ABG pCO2 POC ABG pO2 ABG pO2 ABG HCO3 ABG O2 Saturation ABG Base Excess ABG Hemoglobin ABG Oxyhemoglobin VBG pH ABG Sodium ABG Potassium ABG Glucose Oxyhemoglobin Sodium Potassium Chloride Carbon Dioxide BUN 68 H Creatinine 2.4 H Glucose 198 H POC Glucose 195 H Lactic Acid Calcium Ferritin AST Alkaline Phosphatase Magnesium Lactate Dehydrogenase Total Creatine Kinase CK-MB (CK-2) C-Reactive Protein Total Protein Albumin Troponin T HDL Cholesterol Arterial Blood Glucose Urine WBC (Auto) Urine Creatinine Urine Total Protein Coronavirus (PCR) Crossmatch 06/23/20 06/23/20 06/23/20 05:50 12:29 12:34 WBC RBC Hgb Hct MCHC RDW Lymph % (Auto) [place] % (Auto) Eos % (Auto) Lymph # [place] # Lymph # (Auto) [place] # (Auto) Seg Neutrophils % Seg Neuts % (Manual) Lymphocytes % (Manual) Seg Neutrophils # Seg Neutrophils # Man Lymphocytes # (Manual) Monocytes % (Manual) Eosinophils % (Manual) Monocytes # (Manual) Eosinophils # (Manual) D-Dimer Heparin Anti-Xa Level ABG pH POC ABG pCO2 54.7 H POC ABG pO2 68.8 L ABG pO2 ABG HCO3 ABG O2 Saturation ABG Base Excess ABG Hemoglobin 9.8 L ABG Oxyhemoglobin 92.6 L VBG pH ABG Sodium ABG Potassium ABG Glucose Oxyhemoglobin Sodium Potassium Chloride Carbon Dioxide BUN Creatinine Glucose POC Glucose 202 H 218 H Lactic Acid Calcium Ferritin AST Alkaline Phosphatase Magnesium Lactate Dehydrogenase Total Creatine Kinase CK-MB (CK-2) C-Reactive Protein Total Protein Albumin Troponin T HDL Cholesterol Arterial Blood Glucose Urine WBC (Auto) Urine Creatinine Urine Total Protein Coronavirus (PCR) Crossmatch 06/23/20 06/23/20 06/24/20 16:02 22:22 01:06 WBC RBC Hgb Hct MCHC RDW Lymph % (Auto) [place] % (Auto) Eos % (Auto) Lymph # [place] # Lymph # (Auto) [place] # (Auto) Seg Neutrophils % Seg Neuts % (Manual) Lymphocytes % (Manual) Seg Neutrophils # Seg Neutrophils # Man Lymphocytes # (Manual) Monocytes % (Manual) Eosinophils % (Manual) Monocytes # (Manual) Eosinophils # (Manual) D-Dimer Heparin Anti-Xa Level ABG pH POC ABG pCO2 POC ABG pO2 ABG pO2 ABG HCO3 ABG O2 Saturation ABG Base Excess ABG Hemoglobin ABG Oxyhemoglobin VBG pH ABG Sodium ABG Potassium ABG Glucose Oxyhemoglobin Sodium Potassium Chloride Carbon Dioxide BUN Creatinine Glucose POC Glucose 190 H 166 H 171 H Lactic Acid Calcium Ferritin AST Alkaline Phosphatase Magnesium Lactate Dehydrogenase Total Creatine Kinase CK-MB (CK-2) C-Reactive Protein Total Protein Albumin Troponin T HDL Cholesterol Arterial Blood Glucose Urine WBC (Auto) Urine Creatinine Urine Total Protein Coronavirus (PCR) Crossmatch 06/24/20 06/24/20 06/24/20 04:48 05:35 11:48 WBC RBC Hgb Hct MCHC RDW Lymph % (Auto) [place] % (Auto) Eos % (Auto) Lymph # [place] # Lymph # (Auto) [place] # (Auto) Seg Neutrophils % Seg Neuts % (Manual) Lymphocytes % (Manual) Seg Neutrophils # Seg Neutrophils # Man Lymphocytes # (Manual) Monocytes % (Manual) Eosinophils % (Manual) Monocytes # (Manual) Eosinophils # (Manual) D-Dimer Heparin Anti-Xa Level ABG pH POC ABG pCO2 POC ABG pO2 ABG pO2 ABG HCO3 ABG O2 Saturation ABG Base Excess ABG Hemoglobin ABG Oxyhemoglobin VBG pH ABG Sodium ABG Potassium ABG Glucose Oxyhemoglobin Sodium Potassium Chloride Carbon Dioxide BUN 75 H Creatinine 2.6 H Glucose 179 H POC Glucose 172 H 153 H Lactic Acid Calcium Ferritin AST Alkaline Phosphatase Magnesium Lactate Dehydrogenase Total Creatine Kinase CK-MB (CK-2) C-Reactive Protein Total Protein Albumin Troponin T HDL Cholesterol Arterial Blood Glucose Urine WBC (Auto) Urine Creatinine Urine Total Protein Coronavirus (PCR) Crossmatch 06/24/20 06/24/20 06/25/20 16:38 21:52 12:00 WBC RBC Hgb Hct MCHC RDW Lymph % (Auto) [place] % (Auto) Eos % (Auto) Lymph # [place] # Lymph # (Auto) [place] # (Auto) Seg Neutrophils % Seg Neuts % (Manual) Lymphocytes % (Manual) Seg Neutrophils # Seg Neutrophils # Man Lymphocytes # (Manual) Monocytes % (Manual) Eosinophils % (Manual) Monocytes # (Manual) Eosinophils # (Manual) D-Dimer Heparin Anti-Xa Level ABG pH POC ABG pCO2 POC ABG pO2 ABG pO2 ABG HCO3 ABG O2 Saturation ABG Base Excess ABG Hemoglobin ABG Oxyhemoglobin VBG pH ABG Sodium ABG Potassium ABG Glucose Oxyhemoglobin Sodium Potassium Chloride Carbon Dioxide BUN Creatinine Glucose POC Glucose 123 H 115 H 203 H Lactic Acid Calcium Ferritin AST Alkaline Phosphatase Magnesium Lactate Dehydrogenase Total Creatine Kinase CK-MB (CK-2) C-Reactive Protein Total Protein Albumin Troponin T HDL Cholesterol Arterial Blood Glucose Urine WBC (Auto) Urine Creatinine Urine Total Protein Coronavirus (PCR) Crossmatch 06/25/20 06/25/20 06/25/20 15:43 16:37 23:02 WBC RBC Hgb Hct MCHC RDW Lymph % (Auto) [place] % (Auto) Eos % (Auto) Lymph # [place] # Lymph # (Auto) [place] # (Auto) Seg Neutrophils % Seg Neuts % (Manual) Lymphocytes % (Manual) Seg Neutrophils # Seg Neutrophils # Man Lymphocytes # (Manual) Monocytes % (Manual) Eosinophils % (Manual) Monocytes # (Manual) Eosinophils # (Manual) D-Dimer Heparin Anti-Xa Level ABG pH POC ABG pCO2 POC ABG pO2 ABG pO2 ABG HCO3 ABG O2 Saturation ABG Base Excess ABG Hemoglobin ABG Oxyhemoglobin VBG pH ABG Sodium ABG Potassium ABG Glucose Oxyhemoglobin Sodium Potassium Chloride Carbon Dioxide BUN 71 H Creatinine 1.8 H Glucose 170 H POC Glucose 191 H 126 H Lactic Acid Calcium 8.2 L Ferritin AST Alkaline Phosphatase Magnesium Lactate Dehydrogenase Total Creatine Kinase CK-MB (CK-2) C-Reactive Protein Total Protein Albumin Troponin T HDL Cholesterol Arterial Blood Glucose Urine WBC (Auto) Urine Creatinine Urine Total Protein Coronavirus (PCR) Crossmatch 06/26/20 06/26/20 06/26/20 06:34 06:34 09:27 WBC RBC 2.41 L Hgb 6.9 L Hct 21.5 L MCHC RDW 16.7 H Lymph % (Auto) 10.9 L [place] % (Auto) 9.6 H Eos % (Auto) Lymph # 0.7 L [place] # Lymph # (Auto) [place] # (Auto) Seg Neutrophils % 75.4 H Seg Neuts % (Manual) Lymphocytes % (Manual) Seg Neutrophils # Seg Neutrophils # Man Lymphocytes # (Manual) Monocytes % (Manual) Eosinophils % (Manual) Monocytes # (Manual) Eosinophils # (Manual) D-Dimer Heparin Anti-Xa Level ABG pH POC ABG pCO2 POC ABG pO2 ABG pO2 ABG HCO3 ABG O2 Saturation ABG Base Excess ABG Hemoglobin ABG Oxyhemoglobin VBG pH ABG Sodium ABG Potassium ABG Glucose Oxyhemoglobin Sodium Potassium Chloride Carbon Dioxide BUN 77 H Creatinine 1.9 H Glucose 190 H POC Glucose Lactic Acid Calcium Ferritin AST Alkaline Phosphatase Magnesium Lactate Dehydrogenase Total Creatine Kinase CK-MB (CK-2) C-Reactive Protein Total Protein Albumin Troponin T HDL Cholesterol Arterial Blood Glucose Urine WBC (Auto) Urine Creatinine Urine Total Protein Coronavirus (PCR) Crossmatch See Detail 06/26/20 06/26/20 06/26/20 12:15 16:28 17:28 WBC RBC Hgb Hct MCHC RDW Lymph % (Auto) [place] % (Auto) Eos % (Auto) Lymph # [place] # Lymph # (Auto) [place] # (Auto) Seg Neutrophils % Seg Neuts % (Manual) Lymphocytes % (Manual) Seg Neutrophils # Seg Neutrophils # Man Lymphocytes # (Manual) Monocytes % (Manual) Eosinophils % (Manual) Monocytes # (Manual) Eosinophils # (Manual) D-Dimer Heparin Anti-Xa Level ABG pH POC ABG pCO2 POC ABG pO2 ABG pO2 ABG HCO3 ABG O2 Saturation ABG Base Excess ABG Hemoglobin ABG Oxyhemoglobin VBG pH ABG Sodium ABG Potassium ABG Glucose Oxyhemoglobin Sodium Potassium Chloride Carbon Dioxide BUN Creatinine Glucose POC Glucose 187 H 149 H 189 H Lactic Acid Calcium Ferritin AST Alkaline Phosphatase Magnesium Lactate Dehydrogenase Total Creatine Kinase CK-MB (CK-2) C-Reactive Protein Total Protein Albumin Troponin T HDL Cholesterol Arterial Blood Glucose Urine WBC (Auto) Urine Creatinine Urine Total Protein Coronavirus (PCR) Crossmatch 06/26/20 06/26/20 06/26/20 18:30 18:30 18:30 WBC RBC 2.87 L Hgb 8.2 L Hct 25.9 L MCHC RDW 17.8 H Lymph % (Auto) [place] % (Auto) Eos % (Auto) Lymph # [place] # Lymph # (Auto) [place] # (Auto) Seg Neutrophils % Seg Neuts % (Manual) 83.0 H Lymphocytes % (Manual) 8.0 L Seg Neutrophils # Seg Neutrophils # Man Lymphocytes # (Manual) 0.6 L Monocytes % (Manual) Eosinophils % (Manual) Monocytes # (Manual) Eosinophils # (Manual) D-Dimer Heparin Anti-Xa Level ABG pH POC ABG pCO2 POC ABG pO2 ABG pO2 ABG HCO3 ABG O2 Saturation ABG Base Excess ABG Hemoglobin ABG Oxyhemoglobin VBG pH ABG Sodium ABG Potassium ABG Glucose Oxyhemoglobin Sodium Potassium Chloride Carbon Dioxide BUN 80 H Creatinine 2.1 H Glucose 260 H POC Glucose Lactic Acid 4.30 H* Calcium 8.3 L Ferritin AST Alkaline Phosphatase Magnesium Lactate Dehydrogenase Total Creatine Kinase CK-MB (CK-2) C-Reactive Protein Total Protein Albumin Troponin T HDL Cholesterol Arterial Blood Glucose Urine WBC (Auto) Urine Creatinine Urine Total Protein Coronavirus (PCR) Crossmatch 06/26/20 06/27/20 06/27/20 18:50 01:00 04:29 WBC RBC Hgb Hct MCHC RDW Lymph % (Auto) [place] % (Auto) Eos % (Auto) Lymph # [place] # Lymph # (Auto) [place] # (Auto) Seg Neutrophils % Seg Neuts % (Manual) Lymphocytes % (Manual) Seg Neutrophils # Seg Neutrophils # Man Lymphocytes # (Manual) Monocytes % (Manual) Eosinophils % (Manual) Monocytes # (Manual) Eosinophils # (Manual) D-Dimer Heparin Anti-Xa Level ABG pH 7.296 L POC ABG pCO2 POC ABG pO2 ABG pO2 116.5 H 200.5 H ABG HCO3 28.4 H ABG O2 Saturation 99.3 H ABG Base Excess 3.7 H ABG Hemoglobin 5.6 L ABG Oxyhemoglobin VBG pH ABG Sodium ABG Potassium ABG Glucose Oxyhemoglobin Sodium Potassium Chloride Carbon Dioxide BUN Creatinine Glucose POC Glucose 123 H Lactic Acid Calcium Ferritin AST Alkaline Phosphatase Magnesium Lactate Dehydrogenase Total Creatine Kinase CK-MB (CK-2) C-Reactive Protein Total Protein Albumin Troponin T HDL Cholesterol Arterial Blood Glucose Urine WBC (Auto) Urine Creatinine Urine Total Protein Coronavirus (PCR) Crossmatch 06/27/20 06/27/20 06/27/20 05:00 05:00 05:00 WBC RBC 2.75 L Hgb 7.9 L Hct 24.3 L MCHC RDW 17.1 H Lymph % (Auto) 8.5 L [place] % (Auto) 12.6 H Eos % (Auto) Lymph # 0.7 L [place] # 1.0 H Lymph # (Auto) [place] # (Auto) Seg Neutrophils % 77.5 H Seg Neuts % (Manual) Lymphocytes % (Manual) Seg Neutrophils # Seg Neutrophils # Man Lymphocytes # (Manual) Monocytes % (Manual) Eosinophils % (Manual) Monocytes # (Manual) Eosinophils # (Manual) D-Dimer Heparin Anti-Xa Level ABG pH POC ABG pCO2 POC ABG pO2 ABG pO2 ABG HCO3 ABG O2 Saturation ABG Base Excess ABG Hemoglobin ABG Oxyhemoglobin VBG pH ABG Sodium ABG Potassium ABG Glucose Oxyhemoglobin Sodium Potassium Chloride Carbon Dioxide BUN 80 H Creatinine 2.0 H Glucose 129 H POC Glucose Lactic Acid 0.60 L Calcium 7.9 L Ferritin AST Alkaline Phosphatase Magnesium Lactate Dehydrogenase Total Creatine Kinase CK-MB (CK-2) C-Reactive Protein Total Protein Albumin Troponin T HDL Cholesterol Arterial Blood Glucose Urine WBC (Auto) Urine Creatinine Urine Total Protein Coronavirus (PCR) Crossmatch 06/27/20 06/27/20 06/27/20 05:23 13:46 17:25 WBC RBC Hgb Hct MCHC RDW Lymph % (Auto) [place] % (Auto) Eos % (Auto) Lymph # [place] # Lymph # (Auto) [place] # (Auto) Seg Neutrophils % Seg Neuts % (Manual) Lymphocytes % (Manual) Seg Neutrophils # Seg Neutrophils # Man Lymphocytes # (Manual) Monocytes % (Manual) Eosinophils % (Manual) Monocytes # (Manual) Eosinophils # (Manual) D-Dimer Heparin Anti-Xa Level ABG pH POC ABG pCO2 POC ABG pO2 ABG pO2 ABG HCO3 ABG O2 Saturation ABG Base Excess ABG Hemoglobin ABG Oxyhemoglobin VBG pH ABG Sodium ABG Potassium ABG Glucose Oxyhemoglobin Sodium Potassium Chloride Carbon Dioxide BUN Creatinine Glucose POC Glucose 109 H 158 H 162 H Lactic Acid Calcium Ferritin AST Alkaline Phosphatase Magnesium Lactate Dehydrogenase Total Creatine Kinase CK-MB (CK-2) C-Reactive Protein Total Protein Albumin Troponin T HDL Cholesterol Arterial Blood Glucose Urine WBC (Auto) Urine Creatinine Urine Total Protein Coronavirus (PCR) Crossmatch 06/27/20 06/27/20 06/28/20 18:43 23:46 04:05 WBC RBC Hgb 7.7 L Hct 22.1 L MCHC RDW Lymph % (Auto) [place] % (Auto) Eos % (Auto) Lymph # [place] # Lymph # (Auto) [place] # (Auto) Seg Neutrophils % Seg Neuts % (Manual) Lymphocytes % (Manual) Seg Neutrophils # Seg Neutrophils # Man Lymphocytes # (Manual) Monocytes % (Manual) Eosinophils % (Manual) Monocytes # (Manual) Eosinophils # (Manual) D-Dimer Heparin Anti-Xa Level ABG pH POC ABG pCO2 POC ABG pO2 ABG pO2 102.7 H ABG HCO3 28.7 H ABG O2 Saturation ABG Base Excess 3.7 H ABG Hemoglobin ABG Oxyhemoglobin VBG pH ABG Sodium ABG Potassium ABG Glucose Oxyhemoglobin Sodium Potassium Chloride Carbon Dioxide BUN Creatinine Glucose POC Glucose 142 H Lactic Acid Calcium Ferritin AST Alkaline Phosphatase Magnesium Lactate Dehydrogenase Total Creatine Kinase CK-MB (CK-2) C-Reactive Protein Total Protein Albumin Troponin T HDL Cholesterol Arterial Blood Glucose Urine WBC (Auto) Urine Creatinine Urine Total Protein Coronavirus (PCR) Crossmatch 06/28/20 06/28/20 06/28/20 09:47 09:47 12:02 WBC RBC 2.53 L Hgb 7.4 L Hct 22.2 L MCHC RDW 16.8 H Lymph % (Auto) [place] % (Auto) 13.5 H Eos % (Auto) Lymph # 1.1 L [place] # 1.0 H Lymph # (Auto) [place] # (Auto) Seg Neutrophils % Seg Neuts % (Manual) Lymphocytes % (Manual) Seg Neutrophils # Seg Neutrophils # Man Lymphocytes # (Manual) Monocytes % (Manual) Eosinophils % (Manual) Monocytes # (Manual) Eosinophils # (Manual) D-Dimer Heparin Anti-Xa Level ABG pH POC ABG pCO2 POC ABG pO2 ABG pO2 ABG HCO3 ABG O2 Saturation ABG Base Excess ABG Hemoglobin ABG Oxyhemoglobin VBG pH ABG Sodium ABG Potassium ABG Glucose Oxyhemoglobin Sodium Potassium Chloride Carbon Dioxide BUN 80 H Creatinine 1.5 H Glucose 139 H POC Glucose 169 H Lactic Acid Calcium 7.9 L Ferritin AST Alkaline Phosphatase Magnesium Lactate Dehydrogenase Total Creatine Kinase CK-MB (CK-2) C-Reactive Protein Total Protein 5.0 L Albumin 2.1 L Troponin T HDL Cholesterol Arterial Blood Glucose Urine WBC (Auto) Urine Creatinine Urine Total Protein Coronavirus (PCR) Crossmatch 06/28/20 06/28/20 06/28/20 12:30 12:30 17:24 WBC RBC 2.38 L Hgb 7.3 L Hct 20.9 L MCHC 35 H RDW 16.7 H Lymph % (Auto) [place] % (Auto) Eos % (Auto) Lymph # [place] # Lymph # (Auto) [place] # (Auto) Seg Neutrophils % Seg Neuts % (Manual) Lymphocytes % (Manual) Seg Neutrophils # Seg Neutrophils # Man Lymphocytes # (Manual) Monocytes % (Manual) Eosinophils % (Manual) Monocytes # (Manual) Eosinophils # (Manual) D-Dimer Heparin Anti-Xa Level ABG pH POC ABG pCO2 POC ABG pO2 ABG pO2 ABG HCO3 ABG O2 Saturation ABG Base Excess ABG Hemoglobin ABG Oxyhemoglobin VBG pH ABG Sodium ABG Potassium ABG Glucose Oxyhemoglobin Sodium Potassium Chloride Carbon Dioxide BUN 74 H Creatinine 1.5 H Glucose 143 H POC Glucose 173 H Lactic Acid Calcium 7.5 L Ferritin AST Alkaline Phosphatase Magnesium Lactate Dehydrogenase Total Creatine Kinase CK-MB (CK-2) C-Reactive Protein Total Protein Albumin Troponin T HDL Cholesterol Arterial Blood Glucose Urine WBC (Auto) Urine Creatinine Urine Total Protein Coronavirus (PCR) Crossmatch 06/29/20 06/29/20 06/29/20 00:02 03:54 04:38 WBC RBC 2.55 L Hgb 7.3 L Hct 22.4 L MCHC RDW 16.4 H Lymph % (Auto) 13.3 L [place] % (Auto) 12.5 H Eos % (Auto) Lymph # 1.1 L [place] # 1.0 H Lymph # (Auto) [place] # (Auto) Seg Neutrophils % Seg Neuts % (Manual) Lymphocytes % (Manual) Seg Neutrophils # Seg Neutrophils # Man Lymphocytes # (Manual) Monocytes % (Manual) Eosinophils % (Manual) Monocytes # (Manual) Eosinophils # (Manual) D-Dimer Heparin Anti-Xa Level ABG pH POC ABG pCO2 POC ABG pO2 ABG pO2 ABG HCO3 26.9 H ABG O2 Saturation ABG Base Excess ABG Hemoglobin 6.9 L ABG Oxyhemoglobin VBG pH ABG Sodium ABG Potassium ABG Glucose Oxyhemoglobin Sodium Potassium Chloride Carbon Dioxide BUN Creatinine Glucose POC Glucose 142 H Lactic Acid Calcium Ferritin AST Alkaline Phosphatase Magnesium Lactate Dehydrogenase Total Creatine Kinase CK-MB (CK-2) C-Reactive Protein Total Protein Albumin Troponin T HDL Cholesterol Arterial Blood Glucose Urine WBC (Auto) Urine Creatinine Urine Total Protein Coronavirus (PCR) Crossmatch 06/29/20 06/29/20 06/29/20 04:38 05:38 12:25 WBC RBC Hgb Hct MCHC RDW Lymph % (Auto) [place] % (Auto) Eos % (Auto) Lymph # [place] # Lymph # (Auto) [place] # (Auto) Seg Neutrophils % Seg Neuts % (Manual) Lymphocytes % (Manual) Seg Neutrophils # Seg Neutrophils # Man Lymphocytes # (Manual) Monocytes % (Manual) Eosinophils % (Manual) Monocytes # (Manual) Eosinophils # (Manual) D-Dimer Heparin Anti-Xa Level ABG pH POC ABG pCO2 POC ABG pO2 ABG pO2 ABG HCO3 ABG O2 Saturation ABG Base Excess ABG Hemoglobin ABG Oxyhemoglobin VBG pH ABG Sodium ABG Potassium ABG Glucose Oxyhemoglobin Sodium Potassium Chloride 107.8 H Carbon Dioxide BUN 72 H Creatinine 1.4 H Glucose 127 H POC Glucose 122 H 138 H Lactic Acid Calcium 7.4 L Ferritin AST Alkaline Phosphatase Magnesium Lactate Dehydrogenase Total Creatine Kinase CK-MB (CK-2) C-Reactive Protein Total Protein Albumin Troponin T HDL Cholesterol Arterial Blood Glucose Urine WBC (Auto) Urine Creatinine Urine Total Protein Coronavirus (PCR) Crossmatch 06/29/20 06/29/20 06/29/20 14:45 14:45 14:45 WBC RBC Hgb Hct MCHC RDW Lymph % (Auto) [place] % (Auto) Eos % (Auto) Lymph # [place] # Lymph # (Auto) [place] # (Auto) Seg Neutrophils % Seg Neuts % (Manual) Lymphocytes % (Manual) Seg Neutrophils # Seg Neutrophils # Man Lymphocytes # (Manual) Monocytes % (Manual) Eosinophils % (Manual) Monocytes # (Manual) Eosinophils # (Manual) D-Dimer 2310.15 H Heparin Anti-Xa Level ABG pH POC ABG pCO2 POC ABG pO2 ABG pO2 ABG HCO3 ABG O2 Saturation ABG Base Excess ABG Hemoglobin ABG Oxyhemoglobin VBG pH ABG Sodium ABG Potassium ABG Glucose Oxyhemoglobin Sodium Potassium Chloride Carbon Dioxide BUN Creatinine Glucose POC Glucose Lactic Acid Calcium Ferritin 223.6 H AST Alkaline Phosphatase Magnesium Lactate Dehydrogenase 367 H Total Creatine Kinase CK-MB (CK-2) C-Reactive Protein 3.60 H Total Protein Albumin Troponin T HDL Cholesterol Arterial Blood Glucose Urine WBC (Auto) Urine Creatinine Urine Total Protein Coronavirus (PCR) Crossmatch 06/29/20 06/29/20 06/29/20 18:27 23:35 Unknown WBC RBC Hgb Hct MCHC RDW Lymph % (Auto) [place] % (Auto) Eos % (Auto) Lymph # [place] # Lymph # (Auto) [place] # (Auto) Seg Neutrophils % Seg Neuts % (Manual) Lymphocytes % (Manual) Seg Neutrophils # Seg Neutrophils # Man Lymphocytes # (Manual) Monocytes % (Manual) Eosinophils % (Manual) Monocytes # (Manual) Eosinophils # (Manual) D-Dimer Heparin Anti-Xa Level ABG pH POC ABG pCO2 POC ABG pO2 ABG pO2 ABG HCO3 ABG O2 Saturation ABG Base Excess ABG Hemoglobin ABG Oxyhemoglobin VBG pH ABG Sodium ABG Potassium ABG Glucose Oxyhemoglobin Sodium Potassium Chloride Carbon Dioxide BUN Creatinine Glucose POC Glucose 112 H 140 H Lactic Acid Calcium Ferritin AST Alkaline Phosphatase Magnesium Lactate Dehydrogenase Total Creatine Kinase CK-MB (CK-2) C-Reactive Protein Total Protein Albumin Troponin T HDL Cholesterol Arterial Blood Glucose Urine WBC (Auto) Urine Creatinine Urine Total Protein Coronavirus (PCR) Positive A Crossmatch 06/30/20 06/30/20 06/30/20 04:10 04:10 06:09 WBC RBC 2.44 L Hgb 7.1 L Hct 21.5 L MCHC RDW 16.6 H Lymph % (Auto) 11.0 L [place] % (Auto) 10.8 H Eos % (Auto) Lymph # 0.9 L [place] # 0.9 H Lymph # (Auto) [place] # (Auto) Seg Neutrophils % 73.7 H Seg Neuts % (Manual) Lymphocytes % (Manual) Seg Neutrophils # Seg Neutrophils # Man Lymphocytes # (Manual) Monocytes % (Manual) Eosinophils % (Manual) Monocytes # (Manual) Eosinophils # (Manual) D-Dimer Heparin Anti-Xa Level ABG pH POC ABG pCO2 POC ABG pO2 ABG pO2 ABG HCO3 ABG O2 Saturation ABG Base Excess ABG Hemoglobin ABG Oxyhemoglobin VBG pH ABG Sodium ABG Potassium ABG Glucose Oxyhemoglobin Sodium Potassium Chloride 109.1 H Carbon Dioxide BUN 74 H Creatinine 1.3 H Glucose 191 H POC Glucose 187 H Lactic Acid Calcium 7.8 L Ferritin AST Alkaline Phosphatase Magnesium Lactate Dehydrogenase Total Creatine Kinase CK-MB (CK-2) C-Reactive Protein Total Protein Albumin Troponin T HDL Cholesterol Arterial Blood Glucose Urine WBC (Auto) Urine Creatinine Urine Total Protein Coronavirus (PCR) Crossmatch 06/30/20 06/30/20 06/30/20 12:04 17:43 23:41 WBC RBC Hgb Hct MCHC RDW Lymph % (Auto) [place] % (Auto) Eos % (Auto) Lymph # [place] # Lymph # (Auto) [place] # (Auto) Seg Neutrophils % Seg Neuts % (Manual) Lymphocytes % (Manual) Seg Neutrophils # Seg Neutrophils # Man Lymphocytes # (Manual) Monocytes % (Manual) Eosinophils % (Manual) Monocytes # (Manual) Eosinophils # (Manual) D-Dimer Heparin Anti-Xa Level ABG pH POC ABG pCO2 POC ABG pO2 ABG pO2 ABG HCO3 ABG O2 Saturation ABG Base Excess ABG Hemoglobin ABG Oxyhemoglobin VBG pH ABG Sodium ABG Potassium ABG Glucose Oxyhemoglobin Sodium Potassium Chloride Carbon Dioxide BUN Creatinine Glucose POC Glucose 112 H 177 H 143 H Lactic Acid Calcium Ferritin AST Alkaline Phosphatase Magnesium Lactate Dehydrogenase Total Creatine Kinase CK-MB (CK-2) C-Reactive Protein Total Protein Albumin Troponin T HDL Cholesterol Arterial Blood Glucose Urine WBC (Auto) Urine Creatinine Urine Total Protein Coronavirus (PCR) Crossmatch 07/01/20 07/01/20 07/01/20 05:02 05:52 06:01 WBC 12.6 H RBC 2.95 L Hgb 8.2 L Hct 26.0 L MCHC RDW 16.9 H Lymph % (Auto) [place] % (Auto) Eos % (Auto) Lymph # [place] # Lymph # (Auto) [place] # (Auto) Seg Neutrophils % Seg Neuts % (Manual) Lymphocytes % (Manual) Seg Neutrophils # Seg Neutrophils # Man 8.6 H Lymphocytes # (Manual) Monocytes % (Manual) Eosinophils % (Manual) 5.0 H Monocytes # (Manual) Eosinophils # (Manual) 0.6 H D-Dimer Heparin Anti-Xa Level ABG pH POC ABG pCO2 POC ABG pO2 ABG pO2 ABG HCO3 ABG O2 Saturation ABG Base Excess ABG Hemoglobin 8.2 L ABG Oxyhemoglobin VBG pH ABG Sodium ABG Potassium ABG Glucose Oxyhemoglobin Sodium Potassium Chloride Carbon Dioxide BUN Creatinine Glucose POC Glucose 129 H Lactic Acid Calcium Ferritin AST Alkaline Phosphatase Magnesium Lactate Dehydrogenase Total Creatine Kinase CK-MB (CK-2) C-Reactive Protein Total Protein Albumin Troponin T HDL Cholesterol Arterial Blood Glucose Urine WBC (Auto) Urine Creatinine Urine Total Protein Coronavirus (PCR) Crossmatch 07/01/20 07/01/20 07/01/20 06:01 06:01 06:08 WBC RBC Hgb Hct MCHC RDW Lymph % (Auto) [place] % (Auto) Eos % (Auto) Lymph # [place] # Lymph # (Auto) [place] # (Auto) Seg Neutrophils % Seg Neuts % (Manual) Lymphocytes % (Manual) Seg Neutrophils # Seg Neutrophils # Man Lymphocytes # (Manual) Monocytes % (Manual) Eosinophils % (Manual) Monocytes # (Manual) Eosinophils # (Manual) D-Dimer Heparin Anti-Xa Level ABG pH POC ABG pCO2 POC ABG pO2 ABG pO2 ABG HCO3 ABG O2 Saturation ABG Base Excess ABG Hemoglobin ABG Oxyhemoglobin VBG pH ABG Sodium ABG Potassium ABG Glucose Oxyhemoglobin Sodium 147 H Potassium Chloride 108.0 H Carbon Dioxide BUN 71 H Creatinine 1.3 H Glucose 193 H POC Glucose 192 H Lactic Acid Calcium 8.1 L Ferritin AST Alkaline Phosphatase Magnesium Lactate Dehydrogenase Total Creatine Kinase 300 H CK-MB (CK-2) C-Reactive Protein Total Protein Albumin Troponin T 0.067 H HDL Cholesterol 61 H Arterial Blood Glucose Urine WBC (Auto) Urine Creatinine Urine Total Protein Coronavirus (PCR) Crossmatch 07/01/20 07/01/20 07/02/20 12:23 17:40 00:18 WBC RBC Hgb Hct MCHC RDW Lymph % (Auto) [place] % (Auto) Eos % (Auto) Lymph # [place] # Lymph # (Auto) [place] # (Auto) Seg Neutrophils % Seg Neuts % (Manual) Lymphocytes % (Manual) Seg Neutrophils # Seg Neutrophils # Man Lymphocytes # (Manual) Monocytes % (Manual) Eosinophils % (Manual) Monocytes # (Manual) Eosinophils # (Manual) D-Dimer Heparin Anti-Xa Level ABG pH POC ABG pCO2 POC ABG pO2 ABG pO2 ABG HCO3 ABG O2 Saturation ABG Base Excess ABG Hemoglobin ABG Oxyhemoglobin VBG pH ABG Sodium ABG Potassium ABG Glucose Oxyhemoglobin Sodium Potassium Chloride Carbon Dioxide BUN Creatinine Glucose POC Glucose 111 H 135 H 145 H Lactic Acid Calcium Ferritin AST Alkaline Phosphatase Magnesium Lactate Dehydrogenase Total Creatine Kinase CK-MB (CK-2) C-Reactive Protein Total Protein Albumin Troponin T HDL Cholesterol Arterial Blood Glucose Urine WBC (Auto) Urine Creatinine Urine Total Protein Coronavirus (PCR) Crossmatch 07/02/20 07/02/20 07/02/20 04:11 04:23 05:54 WBC RBC Hgb Hct MCHC RDW Lymph % (Auto) [place] % (Auto) Eos % (Auto) Lymph # [place] # Lymph # (Auto) [place] # (Auto) Seg Neutrophils % Seg Neuts % (Manual) Lymphocytes % (Manual) Seg Neutrophils # Seg Neutrophils # Man Lymphocytes # (Manual) Monocytes % (Manual) Eosinophils % (Manual) Monocytes # (Manual) Eosinophils # (Manual) D-Dimer Heparin Anti-Xa Level ABG pH POC ABG pCO2 POC ABG pO2 ABG pO2 ABG HCO3 ABG O2 Saturation ABG Base Excess ABG Hemoglobin 5.4 L ABG Oxyhemoglobin VBG pH ABG Sodium ABG Potassium ABG Glucose Oxyhemoglobin Sodium Potassium Chloride 108.6 H Carbon Dioxide BUN 72 H Creatinine Glucose 112 H POC Glucose 137 H Lactic Acid Calcium 7.8 L Ferritin AST Alkaline Phosphatase Magnesium Lactate Dehydrogenase Total Creatine Kinase CK-MB (CK-2) C-Reactive Protein Total Protein Albumin Troponin T HDL Cholesterol Arterial Blood Glucose Urine WBC (Auto) Urine Creatinine Urine Total Protein Coronavirus (PCR) Crossmatch 07/02/20 07/02/20 07/02/20 11:38 18:04 23:59 WBC RBC Hgb Hct MCHC RDW Lymph % (Auto) [place] % (Auto) Eos % (Auto) Lymph # [place] # Lymph # (Auto) [place] # (Auto) Seg Neutrophils % Seg Neuts % (Manual) Lymphocytes % (Manual) Seg Neutrophils # Seg Neutrophils # Man Lymphocytes # (Manual) Monocytes % (Manual) Eosinophils % (Manual) Monocytes # (Manual) Eosinophils # (Manual) D-Dimer Heparin Anti-Xa Level ABG pH POC ABG pCO2 POC ABG pO2 ABG pO2 ABG HCO3 ABG O2 Saturation ABG Base Excess ABG Hemoglobin ABG Oxyhemoglobin VBG pH ABG Sodium ABG Potassium ABG Glucose Oxyhemoglobin Sodium Potassium Chloride Carbon Dioxide BUN Creatinine Glucose POC Glucose 128 H 135 H 156 H Lactic Acid Calcium Ferritin AST Alkaline Phosphatase Magnesium Lactate Dehydrogenase Total Creatine Kinase CK-MB (CK-2) C-Reactive Protein Total Protein Albumin Troponin T HDL Cholesterol Arterial Blood Glucose Urine WBC (Auto) Urine Creatinine Urine Total Protein Coronavirus (PCR) Crossmatch 07/03/20 07/03/20 07/03/20 03:49 06:00 11:31 WBC RBC Hgb Hct MCHC RDW Lymph % (Auto) [place] % (Auto) Eos % (Auto) Lymph # [place] # Lymph # (Auto) [place] # (Auto) Seg Neutrophils % Seg Neuts % (Manual) Lymphocytes % (Manual) Seg Neutrophils # Seg Neutrophils # Man Lymphocytes # (Manual) Monocytes % (Manual) Eosinophils % (Manual) Monocytes # (Manual) Eosinophils # (Manual) D-Dimer Heparin Anti-Xa Level ABG pH POC ABG pCO2 POC ABG pO2 ABG pO2 121.0 H ABG HCO3 ABG O2 Saturation ABG Base Excess ABG Hemoglobin 8.5 L ABG Oxyhemoglobin VBG pH ABG Sodium ABG Potassium ABG Glucose Oxyhemoglobin Sodium Potassium Chloride Carbon Dioxide BUN Creatinine Glucose POC Glucose 135 H 141 H Lactic Acid Calcium Ferritin AST Alkaline Phosphatase Magnesium Lactate Dehydrogenase Total Creatine Kinase CK-MB (CK-2) C-Reactive Protein Total Protein Albumin Troponin T HDL Cholesterol Arterial Blood Glucose Urine WBC (Auto) Urine Creatinine Urine Total Protein Coronavirus (PCR) Crossmatch 07/03/20 07/03/20 07/04/20 16:07 17:40 05:49 WBC RBC Hgb Hct MCHC RDW Lymph % (Auto) [place] % (Auto) Eos % (Auto) Lymph # [place] # Lymph # (Auto) [place] # (Auto) Seg Neutrophils % Seg Neuts % (Manual) Lymphocytes % (Manual) Seg Neutrophils # Seg Neutrophils # Man Lymphocytes # (Manual) Monocytes % (Manual) Eosinophils % (Manual) Monocytes # (Manual) Eosinophils # (Manual) D-Dimer Heparin Anti-Xa Level ABG pH POC ABG pCO2 POC ABG pO2 ABG pO2 126.9 H ABG HCO3 ABG O2 Saturation ABG Base Excess ABG Hemoglobin 8.1 L ABG Oxyhemoglobin VBG pH ABG Sodium ABG Potassium ABG Glucose Oxyhemoglobin Sodium Potassium Chloride Carbon Dioxide BUN Creatinine Glucose POC Glucose 120 H 128 H Lactic Acid Calcium Ferritin AST Alkaline Phosphatase Magnesium Lactate Dehydrogenase Total Creatine Kinase CK-MB (CK-2) C-Reactive Protein Total Protein Albumin Troponin T HDL Cholesterol Arterial Blood Glucose Urine WBC (Auto) Urine Creatinine Urine Total Protein Coronavirus (PCR) Crossmatch 07/04/20 07/04/20 07/05/20 11:54 18:00 00:07 WBC RBC Hgb Hct MCHC RDW Lymph % (Auto) [place] % (Auto) Eos % (Auto) Lymph # [place] # Lymph # (Auto) [place] # (Auto) Seg Neutrophils % Seg Neuts % (Manual) Lymphocytes % (Manual) Seg Neutrophils # Seg Neutrophils # Man Lymphocytes # (Manual) Monocytes % (Manual) Eosinophils % (Manual) Monocytes # (Manual) Eosinophils # (Manual) D-Dimer Heparin Anti-Xa Level ABG pH POC ABG pCO2 POC ABG pO2 ABG pO2 ABG HCO3 ABG O2 Saturation ABG Base Excess ABG Hemoglobin ABG Oxyhemoglobin VBG pH ABG Sodium ABG Potassium ABG Glucose Oxyhemoglobin Sodium Potassium Chloride Carbon Dioxide BUN Creatinine Glucose POC Glucose 168 H 133 H 121 H Lactic Acid Calcium Ferritin AST Alkaline Phosphatase Magnesium Lactate Dehydrogenase Total Creatine Kinase CK-MB (CK-2) C-Reactive Protein Total Protein Albumin Troponin T HDL Cholesterol Arterial Blood Glucose Urine WBC (Auto) Urine Creatinine Urine Total Protein Coronavirus (PCR) Crossmatch 07/05/20 07/05/20 07/05/20 01:12 02:30 12:09 WBC RBC 2.35 L Hgb 6.9 L Hct 21.1 L MCHC RDW 16.8 H Lymph % (Auto) [place] % (Auto) Eos % (Auto) Lymph # [place] # Lymph # (Auto) [place] # (Auto) Seg Neutrophils % Seg Neuts % (Manual) 74.0 H Lymphocytes % (Manual) 12.0 L Seg Neutrophils # Seg Neutrophils # Man 8.0 H Lymphocytes # (Manual) Monocytes % (Manual) 9.0 H Eosinophils % (Manual) Monocytes # (Manual) 1.0 H Eosinophils # (Manual) D-Dimer Heparin Anti-Xa Level ABG pH POC ABG pCO2 POC ABG pO2 ABG pO2 ABG HCO3 ABG O2 Saturation ABG Base Excess ABG Hemoglobin ABG Oxyhemoglobin VBG pH ABG Sodium ABG Potassium ABG Glucose Oxyhemoglobin Sodium Potassium Chloride Carbon Dioxide BUN Creatinine Glucose POC Glucose 132 H Lactic Acid Calcium Ferritin AST Alkaline Phosphatase Magnesium Lactate Dehydrogenase Total Creatine Kinase CK-MB (CK-2) C-Reactive Protein Total Protein Albumin Troponin T HDL Cholesterol Arterial Blood Glucose Urine WBC (Auto) Urine Creatinine Urine Total Protein Coronavirus (PCR) Crossmatch See Detail 07/05/20 07/05/20 07/05/20 13:05 18:04 23:13 WBC RBC 2.57 L Hgb 7.7 L Hct 23.0 L MCHC RDW 16.9 H Lymph % (Auto) [place] % (Auto) Eos % (Auto) Lymph # [place] # Lymph # (Auto) [place] # (Auto) Seg Neutrophils % Seg Neuts % (Manual) Lymphocytes % (Manual) Seg Neutrophils # Seg Neutrophils # Man Lymphocytes # (Manual) Monocytes % (Manual) Eosinophils % (Manual) Monocytes # (Manual) Eosinophils # (Manual) D-Dimer Heparin Anti-Xa Level ABG pH 7.32 L POC ABG pCO2 POC ABG pO2 ABG pO2 78.3 L ABG HCO3 ABG O2 Saturation ABG Base Excess -2.6 L ABG Hemoglobin 7.3 L ABG Oxyhemoglobin VBG pH ABG Sodium ABG Potassium ABG Glucose Oxyhemoglobin Sodium Potassium Chloride Carbon Dioxide BUN Creatinine Glucose POC Glucose 160 H Lactic Acid Calcium Ferritin AST Alkaline Phosphatase Magnesium Lactate Dehydrogenase Total Creatine Kinase CK-MB (CK-2) C-Reactive Protein Total Protein Albumin Troponin T HDL Cholesterol Arterial Blood Glucose Urine WBC (Auto) Urine Creatinine Urine Total Protein Coronavirus (PCR) Crossmatch 07/05/20 07/05/20 07/06/20 23:13 23:43 13:20 WBC RBC Hgb Hct MCHC RDW Lymph % (Auto) [place] % (Auto) Eos % (Auto) Lymph # [place] # Lymph # (Auto) [place] # (Auto) Seg Neutrophils % Seg Neuts % (Manual) Lymphocytes % (Manual) Seg Neutrophils # Seg Neutrophils # Man Lymphocytes # (Manual) Monocytes % (Manual) Eosinophils % (Manual) Monocytes # (Manual) Eosinophils # (Manual) D-Dimer Heparin Anti-Xa Level ABG pH POC ABG pCO2 POC ABG pO2 ABG pO2 ABG HCO3 ABG O2 Saturation ABG Base Excess ABG Hemoglobin ABG Oxyhemoglobin VBG pH ABG Sodium ABG Potassium ABG Glucose Oxyhemoglobin Sodium Potassium Chloride Carbon Dioxide 20 L BUN 80 H Creatinine 2.4 H D Glucose 124 H POC Glucose 121 H Lactic Acid Calcium 7.6 L Ferritin AST Alkaline Phosphatase Magnesium Lactate Dehydrogenase Total Creatine Kinase CK-MB (CK-2) C-Reactive Protein Total Protein Albumin Troponin T HDL Cholesterol Arterial Blood Glucose Urine WBC (Auto) Urine Creatinine 33.3 H Urine Total Protein Coronavirus (PCR) Crossmatch 07/06/20 07/06/20 07/07/20 14:48 17:28 00:12 WBC RBC Hgb Hct MCHC RDW Lymph % (Auto) [place] % (Auto) Eos % (Auto) Lymph # [place] # Lymph # (Auto) [place] # (Auto) Seg Neutrophils % Seg Neuts % (Manual) Lymphocytes % (Manual) Seg Neutrophils # Seg Neutrophils # Man Lymphocytes # (Manual) Monocytes % (Manual) Eosinophils % (Manual) Monocytes # (Manual) Eosinophils # (Manual) D-Dimer Heparin Anti-Xa Level ABG pH POC ABG pCO2 POC ABG pO2 ABG pO2 ABG HCO3 ABG O2 Saturation ABG Base Excess ABG Hemoglobin ABG Oxyhemoglobin VBG pH ABG Sodium ABG Potassium ABG Glucose Oxyhemoglobin Sodium 136 L Potassium 5.5 H Chloride Carbon Dioxide 19 L BUN 82 H Creatinine 2.5 H Glucose 113 H POC Glucose 133 H 154 H Lactic Acid Calcium 7.7 L Ferritin AST Alkaline Phosphatase Magnesium Lactate Dehydrogenase Total Creatine Kinase CK-MB (CK-2) C-Reactive Protein Total Protein Albumin Troponin T HDL Cholesterol Arterial Blood Glucose Urine WBC (Auto) Urine Creatinine Urine Total Protein Coronavirus (PCR) Crossmatch 07/07/20 07/07/20 07/07/20 04:15 04:15 05:31 WBC RBC 2.28 L Hgb 6.8 L Hct 20.7 L MCHC RDW 16.8 H Lymph % (Auto) [place] % (Auto) Eos % (Auto) Lymph # [place] # Lymph # (Auto) [place] # (Auto) Seg Neutrophils % Seg Neuts % (Manual) Lymphocytes % (Manual) 13.0 L Seg Neutrophils # Seg Neutrophils # Man Lymphocytes # (Manual) 1.0 L Monocytes % (Manual) 11.0 H Eosinophils % (Manual) Monocytes # (Manual) 0.9 H Eosinophils # (Manual) D-Dimer Heparin Anti-Xa Level ABG pH POC ABG pCO2 POC ABG pO2 ABG pO2 ABG HCO3 ABG O2 Saturation ABG Base Excess ABG Hemoglobin ABG Oxyhemoglobin VBG pH ABG Sodium ABG Potassium ABG Glucose Oxyhemoglobin Sodium Potassium Chloride Carbon Dioxide BUN Creatinine Glucose POC Glucose 135 H Lactic Acid Calcium Ferritin AST Alkaline Phosphatase Magnesium 2.50 H Lactate Dehydrogenase Total Creatine Kinase CK-MB (CK-2) C-Reactive Protein Total Protein Albumin Troponin T HDL Cholesterol Arterial Blood Glucose Urine WBC (Auto) Urine Creatinine Urine Total Protein Coronavirus (PCR) Crossmatch 07/07/20 07/07/20 07/07/20 12:31 13:22 17:55 WBC RBC Hgb Hct MCHC RDW Lymph % (Auto) [place] % (Auto) Eos % (Auto) Lymph # [place] # Lymph # (Auto) [place] # (Auto) Seg Neutrophils % Seg Neuts % (Manual) Lymphocytes % (Manual) Seg Neutrophils # Seg Neutrophils # Man Lymphocytes # (Manual) Monocytes % (Manual) Eosinophils % (Manual) Monocytes # (Manual) Eosinophils # (Manual) D-Dimer Heparin Anti-Xa Level ABG pH POC ABG pCO2 POC ABG pO2 ABG pO2 ABG HCO3 ABG O2 Saturation ABG Base Excess ABG Hemoglobin ABG Oxyhemoglobin VBG pH ABG Sodium ABG Potassium ABG Glucose Oxyhemoglobin Sodium Potassium 5.6 H Chloride Carbon Dioxide BUN 86 H Creatinine 2.9 H Glucose 127 H POC Glucose 131 H 136 H Lactic Acid Calcium 8.1 L Ferritin AST Alkaline Phosphatase Magnesium Lactate Dehydrogenase Total Creatine Kinase CK-MB (CK-2) C-Reactive Protein Total Protein Albumin Troponin T HDL Cholesterol Arterial Blood Glucose Urine WBC (Auto) Urine Creatinine Urine Total Protein Coronavirus (PCR) Crossmatch 07/07/20 07/08/20 07/08/20 23:33 04:14 04:14 WBC RBC 3.28 L Hgb 9.7 L Hct 28.9 L D MCHC RDW 16.4 H Lymph % (Auto) 10.3 L [place] % (Auto) 10.0 H Eos % (Auto) Lymph # [place] # Lymph # (Auto) 1.1 L [place] # (Auto) 1.1 H Seg Neutrophils % 77.2 H Seg Neuts % (Manual) Lymphocytes % (Manual) Seg Neutrophils # 8.2 H Seg Neutrophils # Man Lymphocytes # (Manual) Monocytes % (Manual) Eosinophils % (Manual) Monocytes # (Manual) Eosinophils # (Manual) D-Dimer Heparin Anti-Xa Level ABG pH POC ABG pCO2 POC ABG pO2 ABG pO2 ABG HCO3 ABG O2 Saturation ABG Base Excess ABG Hemoglobin ABG Oxyhemoglobin VBG pH ABG Sodium ABG Potassium ABG Glucose Oxyhemoglobin Sodium 136 L Potassium Chloride Carbon Dioxide BUN 84 H Creatinine 2.8 H Glucose 109 H POC Glucose 159 H Lactic Acid Calcium 8.1 L Ferritin AST Alkaline Phosphatase Magnesium 2.50 H Lactate Dehydrogenase Total Creatine Kinase CK-MB (CK-2) C-Reactive Protein Total Protein Albumin Troponin T HDL Cholesterol Arterial Blood Glucose Urine WBC (Auto) Urine Creatinine Urine Total Protein Coronavirus (PCR) Crossmatch 07/08/20 07/08/20 07/08/20 12:10 18:10 23:50 WBC RBC Hgb Hct MCHC RDW Lymph % (Auto) [place] % (Auto) Eos % (Auto) Lymph # [place] # Lymph # (Auto) [place] # (Auto) Seg Neutrophils % Seg Neuts % (Manual) Lymphocytes % (Manual) Seg Neutrophils # Seg Neutrophils # Man Lymphocytes # (Manual) Monocytes % (Manual) Eosinophils % (Manual) Monocytes # (Manual) Eosinophils # (Manual) D-Dimer Heparin Anti-Xa Level ABG pH POC ABG pCO2 POC ABG pO2 ABG pO2 ABG HCO3 ABG O2 Saturation ABG Base Excess ABG Hemoglobin ABG Oxyhemoglobin VBG pH ABG Sodium ABG Potassium ABG Glucose Oxyhemoglobin Sodium Potassium Chloride Carbon Dioxide BUN Creatinine Glucose POC Glucose 108 H 125 H 141 H Lactic Acid Calcium Ferritin AST Alkaline Phosphatase Magnesium Lactate Dehydrogenase Total Creatine Kinase CK-MB (CK-2) C-Reactive Protein Total Protein Albumin Troponin T HDL Cholesterol Arterial Blood Glucose Urine WBC (Auto) Urine Creatinine Urine Total Protein Coronavirus (PCR) Crossmatch 07/09/20 07/09/20 07/09/20 05:39 11:57 17:56 WBC RBC Hgb Hct MCHC RDW Lymph % (Auto) [place] % (Auto) Eos % (Auto) Lymph # [place] # Lymph # (Auto) [place] # (Auto) Seg Neutrophils % Seg Neuts % (Manual) Lymphocytes % (Manual) Seg Neutrophils # Seg Neutrophils # Man Lymphocytes # (Manual) Monocytes % (Manual) Eosinophils % (Manual) Monocytes # (Manual) Eosinophils # (Manual) D-Dimer Heparin Anti-Xa Level ABG pH POC ABG pCO2 POC ABG pO2 ABG pO2 ABG HCO3 ABG O2 Saturation ABG Base Excess ABG Hemoglobin ABG Oxyhemoglobin VBG pH ABG Sodium ABG Potassium ABG Glucose Oxyhemoglobin Sodium Potassium Chloride Carbon Dioxide BUN Creatinine Glucose POC Glucose 121 H 123 H 119 H Lactic Acid Calcium Ferritin AST Alkaline Phosphatase Magnesium Lactate Dehydrogenase Total Creatine Kinase CK-MB (CK-2) C-Reactive Protein Total Protein Albumin Troponin T HDL Cholesterol Arterial Blood Glucose Urine WBC (Auto) Urine Creatinine Urine Total Protein Coronavirus (PCR) Crossmatch 07/10/20 07/10/20 07/10/20 00:29 05:50 10:41 WBC RBC 3.11 L Hgb 9.2 L Hct 27.6 L MCHC RDW 16.6 H Lymph % (Auto) [place] % (Auto) Eos % (Auto) Lymph # [place] # Lymph # (Auto) [place] # (Auto) Seg Neutrophils % Seg Neuts % (Manual) 78.0 H Lymphocytes % (Manual) 11.0 L Seg Neutrophils # Seg Neutrophils # Man Lymphocytes # (Manual) 1.0 L Monocytes % (Manual) Eosinophils % (Manual) Monocytes # (Manual) Eosinophils # (Manual) D-Dimer Heparin Anti-Xa Level ABG pH POC ABG pCO2 POC ABG pO2 ABG pO2 ABG HCO3 ABG O2 Saturation ABG Base Excess ABG Hemoglobin ABG Oxyhemoglobin VBG pH ABG Sodium ABG Potassium ABG Glucose Oxyhemoglobin Sodium Potassium Chloride Carbon Dioxide BUN Creatinine Glucose POC Glucose 122 H 124 H Lactic Acid Calcium Ferritin AST Alkaline Phosphatase Magnesium Lactate Dehydrogenase Total Creatine Kinase CK-MB (CK-2) C-Reactive Protein Total Protein Albumin Troponin T HDL Cholesterol Arterial Blood Glucose Urine WBC (Auto) Urine Creatinine Urine Total Protein Coronavirus (PCR) Crossmatch 07/10/20 07/10/20 07/10/20 10:41 12:25 18:10 WBC RBC Hgb Hct MCHC RDW Lymph % (Auto) [place] % (Auto) Eos % (Auto) Lymph # [place] # Lymph # (Auto) [place] # (Auto) Seg Neutrophils % Seg Neuts % (Manual) Lymphocytes % (Manual) Seg Neutrophils # Seg Neutrophils # Man Lymphocytes # (Manual) Monocytes % (Manual) Eosinophils % (Manual) Monocytes # (Manual) Eosinophils # (Manual) D-Dimer Heparin Anti-Xa Level ABG pH POC ABG pCO2 POC ABG pO2 ABG pO2 ABG HCO3 ABG O2 Saturation ABG Base Excess ABG Hemoglobin ABG Oxyhemoglobin VBG pH ABG Sodium ABG Potassium ABG Glucose Oxyhemoglobin Sodium Potassium Chloride Carbon Dioxide BUN 85 H Creatinine 2.5 H Glucose 133 H POC Glucose 131 H 134 H Lactic Acid Calcium Ferritin AST Alkaline Phosphatase 131 H Magnesium Lactate Dehydrogenase Total Creatine Kinase CK-MB (CK-2) C-Reactive Protein Total Protein 5.2 L Albumin 1.6 L Troponin T HDL Cholesterol Arterial Blood Glucose Urine WBC (Auto) Urine Creatinine Urine Total Protein Coronavirus (PCR) Crossmatch 07/11/20 07/11/20 07/11/20 00:28 05:57 12:14 WBC RBC Hgb Hct MCHC RDW Lymph % (Auto) [place] % (Auto) Eos % (Auto) Lymph # [place] # Lymph # (Auto) [place] # (Auto) Seg Neutrophils % Seg Neuts % (Manual) Lymphocytes % (Manual) Seg Neutrophils # Seg Neutrophils # Man Lymphocytes # (Manual) Monocytes % (Manual) Eosinophils % (Manual) Monocytes # (Manual) Eosinophils # (Manual) D-Dimer Heparin Anti-Xa Level ABG pH POC ABG pCO2 POC ABG pO2 ABG pO2 ABG HCO3 ABG O2 Saturation ABG Base Excess ABG Hemoglobin ABG Oxyhemoglobin VBG pH ABG Sodium ABG Potassium ABG Glucose Oxyhemoglobin Sodium Potassium Chloride Carbon Dioxide BUN Creatinine Glucose POC Glucose 140 H 148 H 147 H Lactic Acid Calcium Ferritin AST Alkaline Phosphatase Magnesium Lactate Dehydrogenase Total Creatine Kinase CK-MB (CK-2) C-Reactive Protein Total Protein Albumin Troponin T HDL Cholesterol Arterial Blood Glucose Urine WBC (Auto) Urine Creatinine Urine Total Protein Coronavirus (PCR) Crossmatch 07/11/20 07/11/20 07/12/20 17:28 23:49 05:14 WBC RBC 2.78 L Hgb 8.5 L Hct 25.3 L MCHC RDW 16.7 H Lymph % (Auto) [place] % (Auto) Eos % (Auto) Lymph # [place] # Lymph # (Auto) [place] # (Auto) Seg Neutrophils % Seg Neuts % (Manual) 81.0 H Lymphocytes % (Manual) 6.0 L Seg Neutrophils # Seg Neutrophils # Man Lymphocytes # (Manual) 0.6 L Monocytes % (Manual) 8.0 H Eosinophils % (Manual) Monocytes # (Manual) Eosinophils # (Manual) D-Dimer Heparin Anti-Xa Level ABG pH POC ABG pCO2 POC ABG pO2 ABG pO2 ABG HCO3 ABG O2 Saturation ABG Base Excess ABG Hemoglobin ABG Oxyhemoglobin VBG pH ABG Sodium ABG Potassium ABG Glucose Oxyhemoglobin Sodium Potassium Chloride Carbon Dioxide BUN Creatinine Glucose POC Glucose 175 H 114 H Lactic Acid Calcium Ferritin AST Alkaline Phosphatase Magnesium Lactate Dehydrogenase Total Creatine Kinase CK-MB (CK-2) C-Reactive Protein Total Protein Albumin Troponin T HDL Cholesterol Arterial Blood Glucose Urine WBC (Auto) Urine Creatinine Urine Total Protein Coronavirus (PCR) Crossmatch 07/12/20 07/12/20 07/12/20 05:14 05:44 11:32 WBC RBC Hgb Hct MCHC RDW Lymph % (Auto) [place] % (Auto) Eos % (Auto) Lymph # [place] # Lymph # (Auto) [place] # (Auto) Seg Neutrophils % Seg Neuts % (Manual) Lymphocytes % (Manual) Seg Neutrophils # Seg Neutrophils # Man Lymphocytes # (Manual) Monocytes % (Manual) Eosinophils % (Manual) Monocytes # (Manual) Eosinophils # (Manual) D-Dimer Heparin Anti-Xa Level ABG pH POC ABG pCO2 POC ABG pO2 ABG pO2 ABG HCO3 ABG O2 Saturation ABG Base Excess ABG Hemoglobin ABG Oxyhemoglobin VBG pH ABG Sodium ABG Potassium ABG Glucose Oxyhemoglobin Sodium Potassium Chloride Carbon Dioxide BUN 79 H Creatinine 2.2 H Glucose 131 H POC Glucose 116 H 132 H Lactic Acid Calcium Ferritin AST Alkaline Phosphatase Magnesium Lactate Dehydrogenase Total Creatine Kinase CK-MB (CK-2) C-Reactive Protein Total Protein Albumin Troponin T HDL Cholesterol Arterial Blood Glucose Urine WBC (Auto) Urine Creatinine Urine Total Protein Coronavirus (PCR) Crossmatch 07/12/20 07/13/20 07/13/20 17:53 00:18 04:53 WBC RBC 2.86 L Hgb 8.4 L Hct 25.7 L MCHC RDW 16.8 H Lymph % (Auto) [place] % (Auto) Eos % (Auto) Lymph # [place] # Lymph # (Auto) [place] # (Auto) Seg Neutrophils % Seg Neuts % (Manual) 84.0 H Lymphocytes % (Manual) 7.0 L Seg Neutrophils # Seg Neutrophils # Man Lymphocytes # (Manual) 0.6 L Monocytes % (Manual) Eosinophils % (Manual) Monocytes # (Manual) Eosinophils # (Manual) D-Dimer Heparin Anti-Xa Level ABG pH POC ABG pCO2 POC ABG pO2 ABG pO2 ABG HCO3 ABG O2 Saturation ABG Base Excess ABG Hemoglobin ABG Oxyhemoglobin VBG pH ABG Sodium ABG Potassium ABG Glucose Oxyhemoglobin Sodium Potassium Chloride Carbon Dioxide BUN Creatinine Glucose POC Glucose 155 H 162 H Lactic Acid Calcium Ferritin AST Alkaline Phosphatase Magnesium Lactate Dehydrogenase Total Creatine Kinase CK-MB (CK-2) C-Reactive Protein Total Protein Albumin Troponin T HDL Cholesterol Arterial Blood Glucose Urine WBC (Auto) Urine Creatinine Urine Total Protein Coronavirus (PCR) Crossmatch 07/13/20 07/13/20 07/13/20 04:53 06:14 12:50 WBC RBC Hgb Hct MCHC RDW Lymph % (Auto) [place] % (Auto) Eos % (Auto) Lymph # [place] # Lymph # (Auto) [place] # (Auto) Seg Neutrophils % Seg Neuts % (Manual) Lymphocytes % (Manual) Seg Neutrophils # Seg Neutrophils # Man Lymphocytes # (Manual) Monocytes % (Manual) Eosinophils % (Manual) Monocytes # (Manual) Eosinophils # (Manual) D-Dimer Heparin Anti-Xa Level ABG pH POC ABG pCO2 POC ABG pO2 ABG pO2 ABG HCO3 ABG O2 Saturation ABG Base Excess ABG Hemoglobin ABG Oxyhemoglobin VBG pH ABG Sodium ABG Potassium ABG Glucose Oxyhemoglobin Sodium 136 L Potassium Chloride Carbon Dioxide BUN 78 H Creatinine 2.0 H Glucose 130 H POC Glucose 141 H 146 H Lactic Acid Calcium Ferritin AST Alkaline Phosphatase Magnesium Lactate Dehydrogenase Total Creatine Kinase CK-MB (CK-2) C-Reactive Protein Total Protein Albumin Troponin T HDL Cholesterol Arterial Blood Glucose Urine WBC (Auto) Urine Creatinine Urine Total Protein Coronavirus (PCR) Crossmatch 07/13/20 07/14/20 07/14/20 18:27 00:22 05:43 WBC RBC Hgb Hct MCHC RDW Lymph % (Auto) [place] % (Auto) Eos % (Auto) Lymph # [place] # Lymph # (Auto) [place] # (Auto) Seg Neutrophils % Seg Neuts % (Manual) Lymphocytes % (Manual) Seg Neutrophils # Seg Neutrophils # Man Lymphocytes # (Manual) Monocytes % (Manual) Eosinophils % (Manual) Monocytes # (Manual) Eosinophils # (Manual) D-Dimer Heparin Anti-Xa Level ABG pH POC ABG pCO2 POC ABG pO2 ABG pO2 ABG HCO3 ABG O2 Saturation ABG Base Excess ABG Hemoglobin ABG Oxyhemoglobin VBG pH ABG Sodium ABG Potassium ABG Glucose Oxyhemoglobin Sodium Potassium Chloride Carbon Dioxide BUN Creatinine Glucose POC Glucose 149 H 157 H 169 H Lactic Acid Calcium Ferritin AST Alkaline Phosphatase Magnesium Lactate Dehydrogenase Total Creatine Kinase CK-MB (CK-2) C-Reactive Protein Total Protein Albumin Troponin T HDL Cholesterol Arterial Blood Glucose Urine WBC (Auto) Urine Creatinine Urine Total Protein Coronavirus (PCR) Crossmatch 07/14/20 07/14/20 07/14/20 08:04 12:12 17:23 WBC RBC Hgb Hct MCHC RDW Lymph % (Auto) [place] % (Auto) Eos % (Auto) Lymph # [place] # Lymph # (Auto) [place] # (Auto) Seg Neutrophils % Seg Neuts % (Manual) Lymphocytes % (Manual) Seg Neutrophils # Seg Neutrophils # Man Lymphocytes # (Manual) Monocytes % (Manual) Eosinophils % (Manual) Monocytes # (Manual) Eosinophils # (Manual) D-Dimer Heparin Anti-Xa Level ABG pH POC ABG pCO2 POC ABG pO2 ABG pO2 ABG HCO3 ABG O2 Saturation ABG Base Excess ABG Hemoglobin ABG Oxyhemoglobin VBG pH ABG Sodium ABG Potassium ABG Glucose Oxyhemoglobin Sodium Potassium Chloride Carbon Dioxide BUN Creatinine Glucose POC Glucose 185 H 138 H Lactic Acid Calcium Ferritin AST Alkaline Phosphatase Magnesium Lactate Dehydrogenase Total Creatine Kinase CK-MB (CK-2) C-Reactive Protein Total Protein Albumin Troponin T HDL Cholesterol Arterial Blood Glucose Urine WBC (Auto) Urine Creatinine Urine Total Protein Coronavirus (PCR) Positive A Crossmatch 07/15/20 07/15/20 07/15/20 00:04 06:06 12:00 WBC RBC Hgb Hct MCHC RDW Lymph % (Auto) [place] % (Auto) Eos % (Auto) Lymph # [place] # Lymph # (Auto) [place] # (Auto) Seg Neutrophils % Seg Neuts % (Manual) Lymphocytes % (Manual) Seg Neutrophils # Seg Neutrophils # Man Lymphocytes # (Manual) Monocytes % (Manual) Eosinophils % (Manual) Monocytes # (Manual) Eosinophils # (Manual) D-Dimer Heparin Anti-Xa Level ABG pH POC ABG pCO2 POC ABG pO2 ABG pO2 ABG HCO3 ABG O2 Saturation ABG Base Excess ABG Hemoglobin ABG Oxyhemoglobin VBG pH ABG Sodium ABG Potassium ABG Glucose Oxyhemoglobin Sodium Potassium Chloride Carbon Dioxide BUN Creatinine Glucose POC Glucose 121 H 140 H 137 H Lactic Acid Calcium Ferritin AST Alkaline Phosphatase Magnesium Lactate Dehydrogenase Total Creatine Kinase CK-MB (CK-2) C-Reactive Protein Total Protein Albumin Troponin T HDL Cholesterol Arterial Blood Glucose Urine WBC (Auto) Urine Creatinine Urine Total Protein Coronavirus (PCR) Crossmatch 07/15/20 07/15/20 07/16/20 17:53 23:53 05:26 WBC RBC Hgb Hct MCHC RDW Lymph % (Auto) [place] % (Auto) Eos % (Auto) Lymph # [place] # Lymph # (Auto) [place] # (Auto) Seg Neutrophils % Seg Neuts % (Manual) Lymphocytes % (Manual) Seg Neutrophils # Seg Neutrophils # Man Lymphocytes # (Manual) Monocytes % (Manual) Eosinophils % (Manual) Monocytes # (Manual) Eosinophils # (Manual) D-Dimer Heparin Anti-Xa Level ABG pH POC ABG pCO2 POC ABG pO2 ABG pO2 ABG HCO3 ABG O2 Saturation ABG Base Excess ABG Hemoglobin ABG Oxyhemoglobin VBG pH ABG Sodium ABG Potassium ABG Glucose Oxyhemoglobin Sodium Potassium Chloride Carbon Dioxide BUN Creatinine Glucose POC Glucose 161 H 156 H 152 H Lactic Acid Calcium Ferritin AST Alkaline Phosphatase Magnesium Lactate Dehydrogenase Total Creatine Kinase CK-MB (CK-2) C-Reactive Protein Total Protein Albumin Troponin T HDL Cholesterol Arterial Blood Glucose Urine WBC (Auto) Urine Creatinine Urine Total Protein Coronavirus (PCR) Crossmatch 07/16/20 07/17/20 07/17/20 17:44 00:07 12:06 WBC RBC Hgb Hct MCHC RDW Lymph % (Auto) [place] % (Auto) Eos % (Auto) Lymph # [place] # Lymph # (Auto) [place] # (Auto) Seg Neutrophils % Seg Neuts % (Manual) Lymphocytes % (Manual) Seg Neutrophils # Seg Neutrophils # Man Lymphocytes # (Manual) Monocytes % (Manual) Eosinophils % (Manual) Monocytes # (Manual) Eosinophils # (Manual) D-Dimer Heparin Anti-Xa Level ABG pH POC ABG pCO2 POC ABG pO2 ABG pO2 ABG HCO3 ABG O2 Saturation ABG Base Excess ABG Hemoglobin ABG Oxyhemoglobin VBG pH ABG Sodium ABG Potassium ABG Glucose Oxyhemoglobin Sodium Potassium Chloride Carbon Dioxide BUN Creatinine Glucose POC Glucose 126 H 189 H 155 H Lactic Acid Calcium Ferritin AST Alkaline Phosphatase Magnesium Lactate Dehydrogenase Total Creatine Kinase CK-MB (CK-2) C-Reactive Protein Total Protein Albumin Troponin T HDL Cholesterol Arterial Blood Glucose Urine WBC (Auto) Urine Creatinine Urine Total Protein Coronavirus (PCR) Crossmatch 07/17/20 07/17/20 07/18/20 18:20 23:25 04:24 WBC RBC Hgb Hct MCHC RDW Lymph % (Auto) [place] % (Auto) Eos % (Auto) Lymph # [place] # Lymph # (Auto) [place] # (Auto) Seg Neutrophils % Seg Neuts % (Manual) Lymphocytes % (Manual) Seg Neutrophils # Seg Neutrophils # Man Lymphocytes # (Manual) Monocytes % (Manual) Eosinophils % (Manual) Monocytes # (Manual) Eosinophils # (Manual) D-Dimer Heparin Anti-Xa Level ABG pH POC ABG pCO2 POC ABG pO2 ABG pO2 ABG HCO3 ABG O2 Saturation ABG Base Excess ABG Hemoglobin 8.8 L ABG Oxyhemoglobin VBG pH ABG Sodium 131.6 L ABG Potassium 4.9 H ABG Glucose 131 H Oxyhemoglobin Sodium Potassium Chloride Carbon Dioxide BUN Creatinine Glucose POC Glucose 206 H 161 H Lactic Acid Calcium Ferritin AST Alkaline Phosphatase Magnesium Lactate Dehydrogenase Total Creatine Kinase CK-MB (CK-2) C-Reactive Protein Total Protein Albumin Troponin T HDL Cholesterol Arterial Blood Glucose 131 H Urine WBC (Auto) Urine Creatinine Urine Total Protein Coronavirus (PCR) Crossmatch 07/18/20 07/18/20 07/18/20 05:16 11:53 18:11 WBC RBC Hgb Hct MCHC RDW Lymph % (Auto) [place] % (Auto) Eos % (Auto) Lymph # [place] # Lymph # (Auto) [place] # (Auto) Seg Neutrophils % Seg Neuts % (Manual) Lymphocytes % (Manual) Seg Neutrophils # Seg Neutrophils # Man Lymphocytes # (Manual) Monocytes % (Manual) Eosinophils % (Manual) Monocytes # (Manual) Eosinophils # (Manual) D-Dimer Heparin Anti-Xa Level ABG pH POC ABG pCO2 POC ABG pO2 ABG pO2 ABG HCO3 ABG O2 Saturation ABG Base Excess ABG Hemoglobin ABG Oxyhemoglobin VBG pH ABG Sodium ABG Potassium ABG Glucose Oxyhemoglobin Sodium Potassium Chloride Carbon Dioxide BUN Creatinine Glucose POC Glucose 140 H 176 H 143 H Lactic Acid Calcium Ferritin AST Alkaline Phosphatase Magnesium Lactate Dehydrogenase Total Creatine Kinase CK-MB (CK-2) C-Reactive Protein Total Protein Albumin Troponin T HDL Cholesterol Arterial Blood Glucose Urine WBC (Auto) Urine Creatinine Urine Total Protein Coronavirus (PCR) Crossmatch 07/18/20 07/19/20 07/19/20 23:51 01:05 01:05 WBC RBC 2.76 L Hgb 7.9 L Hct 24.5 L MCHC RDW 17.6 H Lymph % (Auto) 11.6 L [place] % (Auto) 13.1 H Eos % (Auto) Lymph # [place] # Lymph # (Auto) 1.0 L [place] # (Auto) 1.1 H Seg Neutrophils % 70.9 H Seg Neuts % (Manual) Lymphocytes % (Manual) Seg Neutrophils # Seg Neutrophils # Man Lymphocytes # (Manual) Monocytes % (Manual) Eosinophils % (Manual) Monocytes # (Manual) Eosinophils # (Manual) D-Dimer Heparin Anti-Xa Level ABG pH POC ABG pCO2 POC ABG pO2 ABG pO2 ABG HCO3 ABG O2 Saturation ABG Base Excess ABG Hemoglobin ABG Oxyhemoglobin VBG pH ABG Sodium ABG Potassium ABG Glucose Oxyhemoglobin Sodium Potassium Chloride Carbon Dioxide BUN 86 H Creatinine 1.7 H Glucose 149 H POC Glucose 159 H Lactic Acid Calcium Ferritin AST Alkaline Phosphatase Magnesium Lactate Dehydrogenase Total Creatine Kinase CK-MB (CK-2) C-Reactive Protein Total Protein Albumin Troponin T HDL Cholesterol Arterial Blood Glucose Urine WBC (Auto) Urine Creatinine Urine Total Protein Coronavirus (PCR) Crossmatch 07/19/20 07/19/20 07/19/20 05:54 12:46 17:48 WBC RBC Hgb Hct MCHC RDW Lymph % (Auto) [place] % (Auto) Eos % (Auto) Lymph # [place] # Lymph # (Auto) [place] # (Auto) Seg Neutrophils % Seg Neuts % (Manual) Lymphocytes % (Manual) Seg Neutrophils # Seg Neutrophils # Man Lymphocytes # (Manual) Monocytes % (Manual) Eosinophils % (Manual) Monocytes # (Manual) Eosinophils # (Manual) D-Dimer Heparin Anti-Xa Level ABG pH POC ABG pCO2 POC ABG pO2 ABG pO2 ABG HCO3 ABG O2 Saturation ABG Base Excess ABG Hemoglobin ABG Oxyhemoglobin VBG pH ABG Sodium ABG Potassium ABG Glucose Oxyhemoglobin Sodium Potassium Chloride Carbon Dioxide BUN Creatinine Glucose POC Glucose 176 H 127 H 123 H Lactic Acid Calcium Ferritin AST Alkaline Phosphatase Magnesium Lactate Dehydrogenase Total Creatine Kinase CK-MB (CK-2) C-Reactive Protein Total Protein Albumin Troponin T HDL Cholesterol Arterial Blood Glucose Urine WBC (Auto) Urine Creatinine Urine Total Protein Coronavirus (PCR) Crossmatch 07/20/20 07/20/20 07/20/20 00:34 05:28 12:10 WBC RBC Hgb Hct MCHC RDW Lymph % (Auto) [place] % (Auto) Eos % (Auto) Lymph # [place] # Lymph # (Auto) [place] # (Auto) Seg Neutrophils % Seg Neuts % (Manual) Lymphocytes % (Manual) Seg Neutrophils # Seg Neutrophils # Man Lymphocytes # (Manual) Monocytes % (Manual) Eosinophils % (Manual) Monocytes # (Manual) Eosinophils # (Manual) D-Dimer Heparin Anti-Xa Level ABG pH POC ABG pCO2 POC ABG pO2 ABG pO2 ABG HCO3 ABG O2 Saturation ABG Base Excess ABG Hemoglobin ABG Oxyhemoglobin VBG pH ABG Sodium ABG Potassium ABG Glucose Oxyhemoglobin Sodium Potassium Chloride Carbon Dioxide BUN Creatinine Glucose POC Glucose 147 H 110 H 149 H Lactic Acid Calcium Ferritin AST Alkaline Phosphatase Magnesium Lactate Dehydrogenase Total Creatine Kinase CK-MB (CK-2) C-Reactive Protein Total Protein Albumin Troponin T HDL Cholesterol Arterial Blood Glucose Urine WBC (Auto) Urine Creatinine Urine Total Protein Coronavirus (PCR) Crossmatch 07/20/20 07/21/20 07/21/20 17:00 00:11 05:30 WBC RBC Hgb Hct MCHC RDW Lymph % (Auto) [place] % (Auto) Eos % (Auto) Lymph # [place] # Lymph # (Auto) [place] # (Auto) Seg Neutrophils % Seg Neuts % (Manual) Lymphocytes % (Manual) Seg Neutrophils # Seg Neutrophils # Man Lymphocytes # (Manual) Monocytes % (Manual) Eosinophils % (Manual) Monocytes # (Manual) Eosinophils # (Manual) D-Dimer Heparin Anti-Xa Level ABG pH POC ABG pCO2 POC ABG pO2 ABG pO2 ABG HCO3 ABG O2 Saturation ABG Base Excess ABG Hemoglobin ABG Oxyhemoglobin VBG pH ABG Sodium ABG Potassium ABG Glucose Oxyhemoglobin Sodium Potassium Chloride Carbon Dioxide BUN Creatinine Glucose POC Glucose 173 H 128 H 153 H Lactic Acid Calcium Ferritin AST Alkaline Phosphatase Magnesium Lactate Dehydrogenase Total Creatine Kinase CK-MB (CK-2) C-Reactive Protein Total Protein Albumin Troponin T HDL Cholesterol Arterial Blood Glucose Urine WBC (Auto) Urine Creatinine Urine Total Protein Coronavirus (PCR) Crossmatch Allied health notes reviewed: RT
[2020-07-21] MEDS: MINOXIDIL 2.5 MG TAB PO SCH ×2 (10:57→21:07)
[2020-07-21] MEDS ORDERED: levETIRAcetam 1,000 MG in DEXTROSE 5% IN WATER 100 ML IV ONE (14:00)
--- NOTE | 2020-07-21 17:21 | Progress Note ---
Assessment and Plan Assessment and plan: 05/28/2020 COVID-19 test positive 06/29/2020 COVID-19 test positive 07/14/2020 COVID-19 test positive -- Hypertension; uncontrolled Increase hydralazine dose to 75 mg 3 times a day Continue amlodipine, coreg, clonidine and hydralazine And minoxidil, closely monitor blood pressures PRN labetalol --s/p cardiopulmonary arrest on admission, 06/26 and 07/01, s/p CPR per ACLS protocol, refer to code sheet --Possible anoxic brain injury, neurology consulted, neuro requested MRI brain, EEG MRI brain could not be done due to body habitus, EEG not done --Acute hypoxemic respiratory failure; vent dependent intubated on admission, extubated on 06/12/20 then placed on high flow o2 patient developed another respiratory arrest on 06/26 - reintubated Patient not tolerating weaning parameters CC following, Surgery evaluated the patient for trach and PEG COVID-19 test positive x3, trach and PEG pending neuro evaluation --Acute renal failure : creatinine 2.4-2.5-2.9-1.7 Vasomotor nephropathy, gentle hydration Avoid nephrotoxins, monitor renal function Reconsult nephrology if needed --Rectal bleeding; resolved --Acute blood loss anemia; total 3 units PRBC transfused Closely monitor H&H, GI following, no plans of endoscopy --Severe sepsis; completed antibiotics per ID persistently positive for COVID-19 and Klebsiella pneumoniae --COVID-19 b/l PNA Completed remdesivir on 06/02 Completed dexamethasone - Last dose 06/07 COVID 19 test positive x 3 during this admission --Superficial left cephalic vein DVT/elevated D-dimers[COVID 19] Patient initially started on heparin drip from 05/29/20 D-dimers improved [id number] treated with Eliquis 5 mg twice a day for 1 week[per ID] stop date 06/26/2020 -- Acute toxic metabolic encephalopathy, POA likely from sepsis and s/p cardiac arrest with possible anoxic injury -- Acute renal failure: likely ATN avoid nephrotoxins, reconsult nephrology if no improvement --Klebsiella pneumonia: ID evaluated completed second round of 5 days of cefepime on 07/04/2020 --Acute on chronic systolic heart failure Cardiology following. Ef 45% -- Coffee ground emesis -Stress ulcers Possible stress ulcers, On PPI H/H again dropped - transfuse GI evaluated --Transaminitis. Etiology likely from COVID-19. cont to monitor -- DVT prophylaxis Eliquis, SCD to bilateral lower extremities while in bed -- Advance care planning Patient is critically ill with multiple medical problems Poor prognosis, family updated and requesting full code The high probability of a clinically significant, sudden or life threatening deterioration of the [[facility], renal, respiratory, [employer]IL [employer]] system(s) required my full and direct attention, intervention and personal management. The aggregate critical care time was [31] minutes. This time is in addition to time spent performing reported procedures but includes the following: [x] Data Review and interpretation [x] Patient assessment and monitoring of vital signs [x] Documentation [x] Medication orders and management 07/11/2020. Patient currently on mechanical ventilation AC/PRVC with rate of 12, tidal volume 450, FiO2 30% and PEEP of 6 07/12/2020. Patient placed on CPAP with pressure support of 10 and tolerating we ll. Continue PSB trials as tolerated. 07/13/2020. Patient currently with AC mode rate 12, tidal volume 450, FiO2 30% and PEEP of 6. Surgery has been consulted for trach and PEG placement. Recall nephrology for renal insufficiency. 07/14/20; surgery evaluated for trach and PEG , pending call with test which is is positive today COVID-19 test positive x3 since admission 07/16; trach and PEG pending neuro evaluation 07/17; vent dependent, trach PEG pending neuro evaluation, pending MRI EEG stud y[already ordered] 07/18; unable to do MRI, due to body habitus, morbid obesity, radiology consult Patient critically ill very poor prognosis 07/19; remains intubated on vent, clinically no change 07/20; unable to wean, needs trach and PEG, need MRI , unable to do due to body habitus 07/21; clinically no change, remains intubated on ventilatory support History Interval history: I have seen and examined the patient at the bedside Isolation precautions, PPE protocols followed Patient remains intubated on ventilatory support Clinically no change Vital signs noted Uncontrolled blood pressures Hospitalist Physical - Constitutional Vitals: Temp Pulse Resp BP Pulse Ox 97.8 F 67 14 163/63 97 07/21/20 12:00 07/21/20 14:30 07/21/20 14:30 07/21/20 14:30 07/21/20 14:30 General appearance: Present: no acute distress, well-nourished, obese (Morbidly obese), other (Intubated on ventilatory support) - EENT Eyes: Present: PERRL, EOM intact - Neck Neck: Present: supple, normal ROM - Respiratory Respiratory effort: normal Respiratory: bilateral: diminished, rhonchi, negative: rales, wheezing - Cardiovascular Rhythm: regular Heart Sounds: Present: S1 & S2 - Extremities Extremities: no ischemia Extremity abnormal: edema - Abdominal General gastrointestinal: soft, non-tender, non-distended, normal bowel sounds - Integumentary Integumentary: Present: clear, warm - Psychiatric Psychiatric: other (Intubated on vent) - Neurologic Neurologic: other (Noncommunicative) HEART Score - HEART Score Troponin: Troponin T 0.067 ng/mL (0.00-0.029) H 07/01/20 06:01 Results - Labs CBC & Chem 7: 07/19/20 01:05 07/19/20 01:05 Labs: Laboratory Last Values WBC 8.4 K/mm3 (4.5-11.0) 07/19/20 01:05 RBC 2.76 M/mm3 (3.65-5.03) L 07/19/20 01:05 Hgb 7.9 gm/dl (10.1-14.3) L 07/19/20 01:05 Hct 24.5 % (30.3-42.9) L 07/19/20 01:05 MCV 89 fl (79-97) 07/19/20 01:05 MCH 29 pg (28-32) 07/19/20 01:05 MCHC 32 % (30-34) 07/19/20 01:05 RDW 17.6 % (13.2-15.2) H 07/19/20 01:05 Plt Count 312 K/mm3 (140-440) 07/19/20 01:05 Lymph % (Auto) 11.6 % (13.4-35.0) L 07/19/20 01:05 [place]ison % (Auto) 13.1 % (0.0-7.3) H 07/19/20 01:05 Eos % (Auto) 3.7 % (0.0-4.3) 07/19/20 01:05 Baso % (Auto) 0.7 % (0.0-1.8) 07/19/20 01:05 Lymph # (Auto) 1.0 K/mm3 (1.2-5.4) L 07/19/20 01:05 [place]ison # (Auto) 1.1 K/mm3 (0.0-0.8) H 07/19/20 01:05 Eos # (Auto) 0.3 K/mm3 (0.0-0.4) 07/19/20 01:05 Baso # (Auto) 0.1 K/mm3 (0.0-0.1) 07/19/20 01:05 Add Manual Diff Complete 07/13/20 04:53 Total Counted 100 07/13/20 04:53 Seg Neutrophils % 70.9 % (40.0-70.0) H 07/19/20 01:05 Seg Neuts % (Manual) 84.0 % (40.0-70.0) H 07/13/20 04:53 Band Neutrophils % 1.0 % 07/13/20 04:53 Lymphocytes % (Manual) 7.0 % (13.4-35.0) L 07/13/20 04:53 Reactive Lymphs % (Man) 0 % 07/13/20 04:53 Monocytes % (Manual) 5.0 % (0.0-7.3) 07/13/20 04:53 Eosinophils % (Manual) 1.0 % (0.0-4.3) 07/13/20 04:53 Basophils % (Manual) 0 % (0.0-1.8) 07/13/20 04:53 Metamyelocytes % 2.0 % 07/13/20 04:53 Myelocytes % 0 % 07/13/20 04:53 Promyelocytes % 0 % 07/13/20 04:53 Blast Cells % 0 % 07/13/20 04:53 Nucleated RBC % Not Reportable 07/13/20 04:53 Seg Neutrophils # 5.9 K/mm3 (1.8-7.7) 07/19/20 01:05 Seg Neutrophils # Man 7.1 K/mm3 (1.8-7.7) 07/13/20 04:53 Band Neutrophils # 0.1 K/mm3 07/13/20 04:53 Lymphocytes # (Manual) 0.6 K/mm3 (1.2-5.4) L 07/13/20 04:53 Abs React Lymphs (Man) 0.0 K/mm3 07/13/20 04:53 Monocytes # (Manual) 0.4 K/mm3 (0.0-0.8) 07/13/20 04:53 Eosinophils # (Manual) 0.1 K/mm3 (0.0-0.4) 07/13/20 04:53 Basophils # (Manual) 0.0 K/mm3 (0.0-0.1) 07/13/20 04:53 Metamyelocytes # 0.2 K/mm3 07/13/20 04:53 Myelocytes # 0.0 K/mm3 07/13/20 04:53 Promyelocytes # 0.0 K/mm3 07/13/20 04:53 Blast Cells # 0.0 K/mm3 07/13/20 04:53 WBC Morphology Not Reportable 07/13/20 04:53 Hypersegmented Neuts Not Reportable 07/13/20 04:53 Hyposegmented Neuts Not Reportable 07/13/20 04:53 Hypogranular Neuts Not Reportable 07/13/20 04:53 Smudge Cells Not Reportable 07/13/20 04:53 Toxic Granulation Not Reportable 07/13/20 04:53 Toxic Vacuolation Not Reportable 07/13/20 04:53 Dohle Bodies Not Reportable 07/13/20 04:53 Pelger-Huet Anomaly Not Reportable 07/13/20 04:53 Sanjuanita Rods Not Reportable 07/13/20 04:53 Platelet Estimate Consistent w auto 07/13/20 04:53 Clumped Platelets Not Reportable 07/13/20 04:53 Plt Clumps, EDTA Not Reportable 07/13/20 04:53 Large Platelets Not Reportable 07/13/20 04:53 Giant Platelets Not Reportable 07/13/20 04:53 Platelet Satelliting Not Reportable 07/13/20 04:53 Plt Morphology Comment Not Reportable 07/13/20 04:53 RBC Morphology Not Reportable 07/13/20 04:53 Dimorphic RBCs Not Reportable 07/13/20 04:53 Polychromasia Not Reportable 07/13/20 04:53 Hypochromasia Not Reportable 07/13/20 04:53 Poikilocytosis Not Reportable 07/13/20 04:53 Anisocytosis 1+ 07/13/20 04:53 Microcytosis Not Reportable 07/13/20 04:53 Macrocytosis Not Reportable 07/13/20 04:53 Spherocytes Not Reportable 07/13/20 04:53 Pappenheimer Bodies Not Reportable 07/13/20 04:53 Sickle Cells Not Reportable 07/13/20 04:53 Target Cells Not Reportable 07/13/20 04:53 Tear Drop Cells Not Reportable 07/13/20 04:53 Ovalocytes Not Reportable 07/13/20 04:53 Helmet Cells Not Reportable 07/13/20 04:53 Jones-Cope Bodies Not Reportable 07/13/20 04:53 [place] Rings Not Reportable 07/13/20 04:53 Julia Cells Not Reportable 07/13/20 04:53 Bite Cells Not Reportable 07/13/20 04:53 Crenated Cell Not Reportable 07/13/20 04:53 Elliptocytes Not Reportable 07/13/20 04:53 Acanthocytes (Spur) Not Reportable 07/13/20 04:53 Rouleaux Not Reportable 07/13/20 04:53 Hemoglobin C Crystals Not Reportable 07/13/20 04:53 Schistocytes Not Reportable 07/13/20 04:53 Malaria parasites Not Reportable 07/13/20 04:53 Kev Bodies Not Reportable 07/13/20 04:53 Hem Pathologist Commnt No 07/13/20 04:53 PT 14.2 Sec. (12.2-14.9) 05/29/20 15:10 INR 1.08 (0.87-1.13) 05/29/20 15:10 APTT 27.2 Sec. (24.2-36.6) 05/29/20 15:10 D-Dimer 2310.15 ng/mlDDU (0-234) H 06/29/20 14:45 Heparin Anti-Xa Level 0.34 U.I./ml (0.3-0.7) 06/19/20 10:46 ABG pH 7.382 (7.320-7.450) 07/18/20 04:24 POC ABG pCO2 44.1 mmHg (32.0-48.0) 07/18/20 04:24 ABG pCO2 47.0 mm Hg 07/05/20 13:05 ABG Oxyhemoglobin 92.6 (94-98) L 06/23/20 12:34 POC ABG pO2 86.8 mmHg (83-108) 07/18/20 04:24 ABG pO2 78.3 mm Hg (80.0-90.0) L 07/05/20 13:05 POC ABG HCO3 25.6 07/18/20 04:24 ABG HCO3 23.4 mmol/L (20.0-26.0) 07/05/20 13:05 ABG O2 Saturation 96.1 % (95.0-99.0) 07/05/20 13:05 ABG O2 Content 0.3 (0.0-44) 07/05/20 13:05 POC ABG Base Excess 0.4 07/18/20 04:24 ABG Base Excess -2.6 mmol/L (-2.0-3.0) L 07/05/20 13:05 ABG Hemoglobin 8.8 (12.0-17.5) L 07/18/20 04:24 ABG Carboxyhemoglobin 1.7 % (0.0-5.0) 07/05/20 13:05 ABG Methemoglobin 0.2 % (0.0-1.5) 07/05/20 13:05 VBG pH 7.152 (7.320-7.420) L* 05/28/20 13:47 ABG Sodium 131.6 mmol/L (136.0-145.0) L 07/18/20 04:24 ABG Potassium 4.9 mmol/L (3.40-4.50) H 07/18/20 04:24 ABG Chloride 104.0 mmol/L (98-107) 07/18/20 04:24 ABG Glucose 131 mg/dL (65-95) H 07/18/20 04:24 Carboxyhemoglobin 0.5 (0.5-1.5) 06/23/20 12:34 Oxyhemoglobin 97.4 % (95.0-99.0) 07/05/20 13:05 FiO2 30.0 07/18/20 04:24 Sodium 137 mmol/L (137-145) 07/19/20 01:05 Potassium 4.9 mmol/L (3.6-5.0) 07/19/20 01:05 Chloride 101.6 mmol/L (98-107) 07/19/20 01:05 Carbon Dioxide 22 mmol/L (22-30) 07/19/20 01:05 Anion Gap 18 mmol/L 07/19/20 01:05 BUN 86 mg/dL (7-17) H 07/19/20 01:05 Creatinine 1.7 mg/dL (0.6-1.2) H 07/19/20 01:05 Estimated GFR 30 ml/min 07/19/20 01:05 BUN/Creatinine Ratio 51 % 07/19/20 01:05 Glucose 149 mg/dL (65-100) H 07/19/20 01:05 POC Glucose 144 (70-105) H 07/21/20 12:21 Lactic Acid 0.60 mmol/L (0.7-2.0) L 06/27/20 05:00 Calcium 8.8 mg/dL (8.4-10.2) 07/19/20 01:05 Ferritin 223.6 ng/mL (10.0-200.0) H 06/29/20 14:45 Magnesium 2.50 mg/dL (1.7-2.3) H 07/08/20 04:14 Lactate Dehydrogenase 367 units/L (91-180) H 06/29/20 14:45 Total Bilirubin < 0.20 mg/dL (0.1-1.2) 07/10/20 10:41 AST 25 units/L (5-40) 07/10/20 10:41 ALT 11 units/L (7-56) 07/10/20 10:41 Alkaline Phosphatase 131 units/L (35-129) H 07/10/20 10:41 C-Reactive Protein 3.60 mg/dL (0.00-1.30) H 06/29/20 14:45 Total Creatine Kinase 300 units/L (30-135) H 07/01/20 06:01 CK-MB (CK-2) 2.0 ng/mL (0.0-4.0) 07/01/20 06:01 CK-MB (CK-2) Rel Index 0.6 (0-4) 07/01/20 06:01 Troponin T 0.067 ng/mL (0.00-0.029) H 07/01/20 06:01 Total Protein 5.2 g/dL (6.3-8.2) L 07/10/20 10:41 Albumin 1.6 g/dL (3.9-5) L 07/10/20 10:41 Albumin/Globulin Ratio 0.4 % 07/10/20 10:41 Triglycerides 142 mg/dL (2-149) 07/01/20 06:01 Cholesterol 137 mg/dL (50-199) 07/01/20 06:01 LDL Cholesterol Direct 62 mg/dL (50-130) 07/01/20 06:01 HDL Cholesterol 61 mg/dL (40-59) H 07/01/20 06:01 Cholesterol/HDL Ratio 2.24 % 07/01/20 06:01 Procalcitonin 0.18 ng/mL (<0.15) 07/14/20 04:55 Arterial Blood Glucose 131 mg/dL (65-95) H 07/18/20 04:24 Arterial Blood Ionized Calcium 5.1 mg/dL (4.6-5.3) 07/18/20 04:24 Urine Color Yellow (Yellow) 06/06/20 04:00 Urine Turbidity Cloudy (Clear) 06/06/20 04:00 Urine pH 5.0 (5.0-7.0) 06/06/20 04:00 Ur Specific [place] 1.012 (1.003-1.030) 06/06/20 04:00 Urine Protein 100 mg/dl mg/dL (Negative) 06/06/20 04:00 Urine Glucose (UA) 50 mg/dL (Negative) 06/06/20 04:00 Urine Ketones Neg mg/dL (Negative) 06/06/20 04:00 Urine Blood Sm (Negative) 06/06/20 04:00 Urine Nitrite Neg (Negative) 06/06/20 04:00 Urine Bilirubin Neg (Negative) 06/06/20 04:00 Urine Urobilinogen < 2.0 mg/dL (<2.0) 06/06/20 04:00 Ur Leukocyte Esterase Neg (Negative) 06/06/20 04:00 Urine WBC (Auto) 15.0 /HPF (0.0-6.0) H 06/06/20 04:00 Urine RBC (Auto) 23.0 /HPF (0.0-6.0) 06/06/20 04:00 U Epithel Cells (Auto) 8.0 /HPF (0-13.0) 06/06/20 04:00 Urine Bacteria (Auto) 2+ /HPF (Negative) 06/06/20 04:00 Amorphous Crystals 1+ 06/06/20 04:00 Hyaline Casts 16 /LPF 06/06/20 04:00 Urine Mucus 2+ /HPF 06/06/20 04:00 Urine Yeast (Budding) 2+ /HPF 06/03/20 Unknown Urine Creatinine 33.3 mg/dL (0.1-20.0) H 07/06/20 13:20 Urine Sodium 21 mmol/L 07/06/20 13:20 Urine Total Protein 196 mg/dL (5-11.8) H 06/06/20 04:00 Nasal Screen MRSA (PCR) Negative (Negative) 06/29/20 08:30 Coronavirus (PCR) Positive (Negative) A 07/14/20 08:04 Blood Type A POSITIVE 07/05/20 02:30 Antibody Screen Negative 07/05/20 02:30 Crossmatch See Detail 07/05/20 02:30 - Diagnostic Impressions Diagnostic Impressions: Echocardiogram Limited Views 05/29/20 13:52 Transthoracic Echocardiogram Indication: Pulm Embolus BP: 169/76 HR: 85 Conclusions *Limited study for RV size post cardiopulmonar arrest. *RV is only slightly dilated, no significant difference from prior echo 05/13/2020. *Global left ventricular systolic function is at the lower limits of normal. *The estimated ejection fraction is 45-50%. *Mild to moderate concentric left ventricular hypertrophy is observed. *The left and right atria are both mild to moderately dilated. Findings Left Ventricle: The left ventricular chamber size is mildly dilated. Mild to moderate concentric left ventricular hypertrophy is observed. Global left ventricular systolic function is at the lower limits of normal. The estimated ejection fraction is 45-50%. Left Atrium: The left atrium is mild to moderately dilated. Right Ventricle: The right ventricle is slightly dilated. Right Atrium: The right atrium is mild to moderately dilated. Aortic Valve: The aortic valve leaflets are moderately thickened. Mitral Valve: There is mitral annular calcification. The mitral valve leaflets are moderately thickened. Tricuspid Valve: The tricuspid valve leaflets are mildly thickened. Pericardium: A trivial pericardial effusion is visualized. NDUM: 05/29/20 1808 Amended Report Transthoracic Echocardiogram Indication: Pulm Embolus BP: 169/76 HR: 85 Conclusions *Limited study for RV size post cardiopulmonary arrest. *RV is only slightly dilated, no significant difference from prior echo 05/13/2020. *Global left ventricular systolic function is at the lower limits of normal. *The estimated ejection fraction is 45-50%. *Mild to moderate concentric left ventricular hypertrophy is observed. *The left and right atria are both mild to moderately dilated. Findings Left Ventricle: The left ventricular chamber size is mildly dilated. Mild to moderate concentric left ventricular hypertrophy is observed. Global left ventricular systolic function is at the lower limits of normal. The estimated ejection fraction is 45-50%. Left Atrium: The left atrium is mild to moderately dilated. Right Ventricle: The right ventricle is slightly dilated. Right Atrium: The right atrium is mild to moderately dilated. Aortic Valve: The aortic valve leaflets are moderately thickened. Mitral Valve: There is mitral annular calcification. The mitral valve leaflets are moderately thickened. Tricuspid Valve: The tricuspid valve leaflets are mildly thickened. Pericardium: A trivial pericardial effusion is visualized. Helm/IV: Voiding Method External Female Catheter IV Catheter Type [Left Wrist] Peripheral IV IV Catheter Type [Left Upper INT / Saline Lock arm] IV Catheter Type [Right CVL Internal Jugular] IV Catheter Type [Right Hand] Peripheral IV IV Catheter Type [Right Wrist] Not found on patient IV Catheter Type [Left Hand] INT / Saline Lock IV Catheter Type [Left INT / Saline Lock Antecubital] IV Catheter Type [Right Peripheral IV Forearm] IV Catheter Type [Left Leg] Intra-osseous Active Medications - Current Medications Current Medications: Generic Name Dose Route Start Last Admin Trade Name Freq PRN Reason Stop Dose Admin Acetaminophen 650 mg 06/09/20 10:57 06/29/20 21:18 Tylenol FEEDTUBE 650 mg Q6H PRN Administration Fever >101 Amlodipine Besylate 10 mg 06/02/20 11:00 07/21/20 09:04 Amlodipine PO 10 mg DAILY NELSON Administration Lipase/Protease/Amylase 1 each 05/29/20 13:39 07/07/20 10:36 Pancremu Lawson 10,500 Unit FEEDTUBE 1 each PRN PRN Administration For Clogged Feeding Tube Carvedilol 25 mg 07/20/20 11:00 07/21/20 09:04 Coreg PO 25 mg Q12HR NELSON Administration Clonidine HCl 0.3 mg 07/20/20 11:00 07/21/20 11:24 Catapres PO 0.3 mg Q8H NELSON Administration Glycopyrrolate 2 mg 06/09/20 14:00 07/21/20 14:52 Glycopyrrolate PO 2 mg TID NELSON Administration Heparin Sodium (Porcine) 5,000 unit 06/30/20 14:00 07/21/20 14:52 Heparin SUB-Q 5,000 unit Q8HR NELSON Administration Hydralazine HCl 100 mg 07/14/20 14:00 07/21/20 14:52 Apresoline PO 100 mg TID NELSON Administration Hydrophilic Ointment 1 applic 05/28/20 13:49 Vaseline Lip Therapy TP Q2HR PRN Dry Lips Insulin Glargine 10 units 06/08/20 22:00 07/20/20 21:38 Lantus SUB-Q 10 units QHS NELSON Administration Insulin Human Lispro 0 unit 05/29/20 18:00 07/21/20 12:29 Humalog SUB-Q Not Given Q6H [facility] Protocol Labetalol HCl 20 mg 06/03/20 09:00 07/21/20 05:56 Labetalol IV 20 mg Q4H PRN Administration HYPERTENSION Lansoprazole 30 mg 06/05/20 22:00 07/21/20 10:24 Prevacid Solutab FEEDTUBE 30 mg BID NELSON Administration Levetiracetam 1,000 mg 07/21/20 22:00 Keppra PO BID NELSON Minoxidil 5 mg 07/21/20 10:00 07/21/20 10:57 Loniten PO 5 mg BID NELSON Administration Multi-Ingred Cream/Lotion/Oil/Oint 1 applic 05/28/20 13:49 Artificial Tears Ophth Oint OU Q4HR PRN Dry Eye(s) Ondansetron HCl 4 mg 06/02/20 09:00 06/09/20 16:48 Zofran IV 4 mg Q8H PRN Administration Nausea And Vomiting Senna 17.6 mg 06/03/20 10:00 07/21/20 10:25 Senokot FEEDTUBE Not Given BID NELSON Simple Syrup 15 ml 05/29/20 13:39 Simple Syrup FEEDTUBE PRN PRN Hypoglycemia Simple Syrup 30 ml 05/29/20 13:39 Simple Syrup FEEDTUBE PRN PRN Hypoglycemia Sodium Bicarbonate 325 mg 05/29/20 13:39 07/07/20 10:36 Sodium Bicarbonate FEEDTUBE 325 mg PRN PRN Administration For Clogged Feeding Tube Sodium Chloride 10 ml 05/28/20 22:00 07/21/20 09:05 Sodium Chloride Flush Syringe 10 Ml IV 10 ml BID NELSON Administration Sodium Chloride 10 ml 05/28/20 19:08 06/16/20 17:50 Sodium Chloride Flush Syringe 10 Ml IV 10 ml PRN PRN Administration LINE FLUSH Nutrition/Malnutrition Assess - Dietary Evaluation Nutrition/Malnutrition Findings: Nutrition Notes Start: 05/29/20 11:45 Freq: Status: Active Protocol: Document 07/20/20 11:28 (Rec: 07/20/20 11:32 [id number]) Nutrition Notes Initial or Follow up Reassessment Current Diagnosis Acute Kidney Injury,Diabetes, Heart Failure,Respiratory Failure Other Pertinent Diagnosis COVID-19 (+), Pulmonary edema, dysphagia Current Diet Nepro at 40 ml/hr Labs/Tests BUN 86 Cr 1.7 Pertinent Medications Reviewed Height 5 ft 6 in Weight 123 kg [place] Body Weight (kg) 59.09 BMI 43.7 Weight Status Morbidly Obese Subjective/Other Information FU for TF tolerance. TF running at goal, pt tolerating . Pt unable to get PEG placed due to COVID test result. Percent of energy/protein needs met: 100%/53% Burn Absent Trauma Absent Current % PO Negligible Minimum of two criteria No physical signs of malnutrition Fluid Accumulation Mild (non-severe) #1 Nutrition Diagnosis Inadequate oral intake Diagnosis Progress(for reassessment Continues documentation) Is patient on ventilator? Yes Is Patient Ambulatory and/or Out of Bed No REE-([place]-confined to bed) 2172.576 Kcal/Kg value to use for calculation 13 Approximate Energy Requirements Using 1599 kcal/Kg Calculation Used for Recommendations Kcal/kg Additional Notes Protein needs up to 148g (up to 2.5g/kg IBW) Fluid needs 1ml/kcal Nutrition Intervention Change Diet Order: Continue Nutrition Support: Nepro at 40ml/hr Flush 150ml q4h Kcal 1,728 Protein (gm) 78 Fluid (mL) 697 Goal #1 TF tolerance Goal #2 TF to meet at least 65%-70% energy and 80% protein needs Anticipated Discharge Needs: Unable to determine at this time Follow-Up By: 07/27/20 Additional Comments FU for TF tolerance
[2020-07-21] MEDS: levETIRAcetam 500 MG/5 ML ORAL LIQD PO SCH (21:08)
[2020-07-21] MEDS: INSULIN GLARGINE 100 UNITS/ML SUB-Q SCH (21:09)
[2020-07-22] MEDS: INSULIN LISPRO 100 UNIT/ML VIAL 3 mL SUB-Q SCH ×4 (00:32→18:31)
[2020-07-22] MEDS: cloNIDine 0.2 MG TAB PO SCH ×3 (02:58→20:15)
[2020-07-22] MEDS: HEPARIN 5,000 UNIT/1 ML VIAL SUB-Q SCH ×3 (06:41→22:18)
[2020-07-22] MEDS: GLYCOPYRROLATE 2 MG TAB PO SCH ×3 (08:54→20:15)
[2020-07-22] MEDS: hydrALAZINE 100 MG TAB PO SCH ×3 (08:54→20:16)
[2020-07-22] MEDS: carvediloL 25 MG TAB PO SCH ×2 (10:40→22:18)
[2020-07-22] MEDS: levETIRAcetam 500 MG/5 ML ORAL LIQD PO SCH ×2 (10:40→22:17)
[2020-07-22] MEDS: amLODIPine 10 MG TAB PO SCH (10:40)
[2020-07-22] MEDS: LANSOPRAZOLE 30 MG SOLUTAB FEEDTUBE SCH ×2 (10:41→22:22)
[2020-07-22] MEDS: SENNOSIDES ORAL LIQD 8.8 MG/5 ML ORAL LIQD FEEDTUBE SCH ×2 (10:41→22:18)
[2020-07-22] MEDS: MINOXIDIL 2.5 MG TAB PO SCH ×2 (12:13→22:31)
--- NOTE | 2020-07-22 15:01 | Progress Note ---
Assessment and Plan Acute hypoxemic respiratory failure on MVS Coronavirus-19 infection. Bilateral pulmonary infiltrates, bilateral pneumonia plus likely element of Pulmonary edema. Bilateral pulmonary edema. Bilateral pleural effusions. History of congestive heart failure. Morbid obesity. History of pulmonary hypertension. History of hypertension. Diabetes. Obesity hypoventilation syndrome. Elevated serum inflammatory markers to include D-dimers and LDH levels. Hyperkalemia at presentation. Metabolic acidosis. Oropharyngeal dysphagia. (AMS remains rate limiting factor to safe extubation; she will need a tracheo stomy) - stop AM Seroquel re: AMS - repeat EEG to ensure resolution of epileptiform activity - reduced free water flushes to 50 mls q4h - surgery evaluation ongoing for trach +/- PEG (await negative COVID PCR result) - continue azotemia management per nephrology rec's - continue care as below otherwise; - GI evaluation ongoing - continue Modafinil re: lethargy / somnolence - continue daytime PSV trials as tolerated - Daily SAT and SBT assessment as tolerated - continue to wean supplemental oxygen for target O2 sat's > 90% acutely - VAP bundle addressed - continue lung protective strategies - continue bronchodilators with pulmonary hygiene per RT - wean per pulmonary driven protocols otherwise - continue accuchecks resumed with glycemic control per SSI (While critically ill target blood glucose of 140-180 mg/dL; avoid hypoglycemia) - sedation prn for target RASS 0 to -1 - continue to avoid benzodiazepine's, reduce the possibility of delirium - AB's per ID rec's (following clinically of AB's at this time) - continue enteral nutrition at goal rate as tolerated - AED's per neurology - prn analgesia per CPOT score - Maintenance of sleep-wake cycle, avoid delirium - continue enteral nutritional support at goal rate as tolerated - G.I. & VTE prophylaxis with heparin & famotidine - PT/OT/ROM exercises - continue mobility protocols for pressure ulcer prophylaxis - Monitor hemodynamics closely - continue other care per attending / other consultants - discharge planning ongoing concurrently (LTAC evaluation is appropriate) .... Re-evaluate in am & prn CONDITION: CRITICAL PROGNOSIS: GUARDED CODE STATUS: FULL CODE The high probability of a clinically significant, sudden or life-threatening deterioration of the [respiratory, cardiovascular, GI & neurologic] system(s) required my full and direct attention, intervention and personal management. The aggregate critical care time was [35] minutes without overlap. Time includes spent on; [x] Data Review and interpretation [x] Patient assessment and monitoring of vital signs [x] Documentation [x] Medication orders and management Subjective Date of service: 07/22/20 Principal diagnosis: Ac hypoxemic resp failure; COVID-19; pneumonia; CHF; Pulm HTN; OHS; DM II Interval history: Patient is seen today for: Ac hypoxemic resp failure; Coronavirus-19 infection; pneumonia; Pulmonary edema; Bilateral pleural effusions; CHF; Morbid obesity; pulmonary hypertension; OHS; DM II Seen and examined at bedside; 24hour events reviewed; nursing and respiratory care staff consulted; no adverse overnight events reported to me; resting peac efully in bed; remains on MVS; AMS is oersistent but EEG revealed seizures and now on AED's Objective Vital Signs - 12hr 07/22/20 07/22/20 07/22/20 03:30 04:00 04:30 Temperature 98.8 F Pulse Rate 71 70 71 Pulse Rate [ From Monitor] Respiratory 16 17 17 Rate Blood Pressure 151/58 141/53 151/66 O2 Sat by Pulse 97 96 97 Oximetry 07/22/20 07/22/20 07/22/20 04:52 05:00 05:30 Temperature Pulse Rate 71 70 71 Pulse Rate [ From Monitor] Respiratory 16 16 Rate Blood Pressure 151/66 148/59 152/64 O2 Sat by Pulse 96 97 97 Oximetry 07/22/20 07/22/20 07/22/20 06:00 06:31 07:00 Temperature Pulse Rate 69 71 70 Pulse Rate [ From Monitor] Respiratory 15 18 17 Rate Blood Pressure 151/55 151/55 141/59 O2 Sat by Pulse 97 98 Oximetry 07/22/20 07/22/20 07/22/20 07:30 08:00 08:30 Temperature 98.6 F Pulse Rate 69 69 70 Pulse Rate [ 69 From Monitor] Respiratory 15 17 17 Rate Blood Pressure 144/51 141/52 146/53 O2 Sat by Pulse 97 98 97 Oximetry 07/22/20 07/22/20 07/22/20 08:32 09:00 09:30 Temperature Pulse Rate 68 68 69 Pulse Rate [ From Monitor] Respiratory 18 15 17 Rate Blood Pressure 146/53 141/47 129/48 O2 Sat by Pulse 96 95 95 Oximetry 07/22/20 07/22/2007/22/20 10:00 10:30 10:40 Temperature Pulse Rate 69 67 69 Pulse Rate [ From Monitor] Respiratory 17 15 Rate Blood Pressure 142/61 142/50 142/50 O2 Sat by Pulse 96 97 Oximetry 07/22/20 07/22/20 07/22/20 11:00 11:30 12:00 Temperature 98.7 F Pulse Rate 69 66 68 Pulse Rate [ 68 From Monitor] Respiratory 17 15 19 Rate Blood Pressure 136/56 134/49 128/48 O2 Sat by Pulse 96 97 96 Oximetry 07/22/20 07/22/20 07/22/20 12:30 13:00 13:30 Temperature Pulse Rate 67 66 65 Pulse Rate [ From Monitor] Respiratory 14 15 16 Rate Blood Pressure 132/51 136/53 133/50 O2 Sat by Pulse 97 97 97 Oximetry 07/22/20 07/22/20 14:00 14:30 Temperature Pulse Rate 66 66 Pulse Rate [ From Monitor] Respiratory 14 15 Rate Blood Pressure 130/56 144/59 O2 Sat by Pulse 97 98 Oximetry Constitutional: no acute distress, other (elderly looking female with mildly increased resp effort at rest) Eyes: non-icteric ENT: oropharynx dry, other (ETT 23-24 cm AYAN) Neck: supple, no lymphadenopathy, no JVD, other (large neck circumference) Effort: mildly labored Ascultation: Bilateral: diminished breath sounds, rhonchi (scant) Percussion: Bilateral: not dull Cardiovascular: regular rate and rhythm, other (S1,S2) Gastrointestinal: normoactive bowel sounds, soft, non-tender, non-distended Integumentary: normal Extremities: no cyanosis, pink and warm, pulses normal, no ischemia or petechiae, edema (trace) Neurologic: pupils equal and round, unable to assess, other (lethargic to obtu nded) Psychiatric: other (unable to assess re: AMS) CBC and BMP: 07/25/20 04:24 07/25/20 04:24 ABG, PT/INR, D-dimer: ABG ABG pH 7.382 (7.320-7.450) 07/18/20 04:24 POC ABG pCO2 44.1 mmHg (32.0-48.0) 07/18/20 04:24 ABG pCO2 47.0 mm Hg 07/05/20 13:05 POC ABG pO2 86.8 mmHg (83-108) 07/18/20 04:24 ABG pO2 78.3 mm Hg (80.0-90.0) L 07/05/20 13:05 POC ABG HCO3 25.6 07/18/20 04:24 ABG O2 Saturation 96.1 % (95.0-99.0) 07/05/20 13:05 PT/INR, D-dimer PT 14.2 Sec. (12.2-14.9) 05/29/20 15:10 INR 1.08 (0.87-1.13) 05/29/20 15:10 D-Dimer 2310.15 ng/mlDDU (0-234) H 06/29/20 14:45 Abnormal lab findings: Abnormal Labs 05/28/20 05/28/20 05/28/20 13:29 13:47 13:47 WBC RBC Hgb Hct MCHC RDW 15.3 H Lymph % (Auto) [place] % (Auto) Eos % (Auto) Lymph # [place] # Lymph # (Auto) [place] # (Auto) Seg Neutrophils % Seg Neuts % (Manual) Lymphocytes % (Manual) Seg Neutrophils # Seg Neutrophils # Man Lymphocytes # (Manual) Monocytes % (Manual) Eosinophils % (Manual) Monocytes # (Manual) Eosinophils # (Manual) D-Dimer Heparin Anti-Xa Level ABG pH POC ABG pCO2 POC ABG pO2 ABG pO2 ABG HCO3 ABG O2 Saturation ABG Base Excess ABG Hemoglobin ABG Oxyhemoglobin VBG pH ABG Sodium ABG Potassium ABG Glucose Oxyhemoglobin Sodium Potassium 6.6 H* Chloride 109.2 H Carbon Dioxide 17 L BUN 29 H Creatinine 1.3 H Glucose 265 H POC Glucose 248 H Lactic Acid Calcium 8.1 L Ferritin AST 63 H Alkaline Phosphatase Magnesium Lactate Dehydrogenase Total Creatine Kinase 301 H CK-MB (CK-2) 4.3 H C-Reactive Protein Total Protein 5.4 L Albumin 2.6 L Troponin T HDL Cholesterol Arterial Blood Glucose Urine WBC (Auto) Urine Creatinine Urine Total Protein Coronavirus (PCR) Crossmatch 05/28/20 05/28/20 05/28/20 13:47 13:47 14:46 WBC RBC Hgb Hct MCHC RDW Lymph % (Auto) [place] % (Auto) Eos % (Auto) Lymph # [place] # Lymph # (Auto) [place] # (Auto) Seg Neutrophils % Seg Neuts % (Manual) Lymphocytes % (Manual) Seg Neutrophils # Seg Neutrophils # Man Lymphocytes # (Manual) Monocytes % (Manual) Eosinophils % (Manual) Monocytes # (Manual) Eosinophils # (Manual) D-Dimer Heparin Anti-Xa Level ABG pH POC ABG pCO2 POC ABG pO2 ABG pO2 ABG HCO3 ABG O2 Saturation ABG Base Excess ABG Hemoglobin ABG Oxyhemoglobin VBG pH 7.152 L* ABG Sodium ABG Potassium ABG Glucose Oxyhemoglobin Sodium Potassium 7.2 H* Chloride Carbon Dioxide BUN Creatinine Glucose POC Glucose Lactic Acid 3.40 H* Calcium Ferritin AST Alkaline Phosphatase Magnesium Lactate Dehydrogenase Total Creatine Kinase CK-MB (CK-2) C-Reactive Protein Total Protein Albumin Troponin T HDL Cholesterol Arterial Blood Glucose Urine WBC (Auto) Urine Creatinine Urine Total Protein Coronavirus (PCR) Crossmatch 05/28/20 05/28/20 05/28/20 15:33 15:33 15:51 WBC RBC Hgb Hct MCHC RDW Lymph % (Auto) [place] % (Auto) Eos % (Auto) Lymph # [place] # Lymph # (Auto) [place] # (Auto) Seg Neutrophils % Seg Neuts % (Manual) Lymphocytes % (Manual) Seg Neutrophils # Seg Neutrophils # Man Lymphocytes # (Manual) Monocytes % (Manual) Eosinophils % (Manual) Monocytes # (Manual) Eosinophils # (Manual) D-Dimer 8780.43 H Heparin Anti-Xa Level ABG pH 7.284 L POC ABG pCO2 POC ABG pO2 ABG pO2 273.0 H ABG HCO3 ABG O2 Saturation 99.4 H ABG Base Excess -6.1 L ABG Hemoglobin 17.2 H ABG Oxyhemoglobin VBG pH ABG Sodium ABG Potassium ABG Glucose Oxyhemoglobin Sodium Potassium Chloride Carbon Dioxide BUN Creatinine Glucose 152 H POC Glucose Lactic Acid Calcium Ferritin AST Alkaline Phosphatase Magnesium Lactate Dehydrogenase 365 H Total Creatine Kinase CK-MB (CK-2) C-Reactive Protein Total Protein Albumin Troponin T HDL Cholesterol Arterial Blood Glucose Urine WBC (Auto) Urine Creatinine Urine Total Protein Coronavirus (PCR) Crossmatch 05/28/20 05/28/20 05/28/20 16:30 20:41 23:20 WBC RBC Hgb Hct MCHC RDW Lymph % (Auto) [place] % (Auto) Eos % (Auto) Lymph # [place] # Lymph # (Auto) [place] # (Auto) Seg Neutrophils % Seg Neuts % (Manual) Lymphocytes % (Manual) Seg Neutrophils # Seg Neutrophils # Man Lymphocytes # (Manual) Monocytes % (Manual) Eosinophils % (Manual) Monocytes # (Manual) Eosinophils # (Manual) D-Dimer Heparin Anti-Xa Level ABG pH POC ABG pCO2 POC ABG pO2 ABG pO2 ABG HCO3 ABG O2 Saturation ABG Base Excess ABG Hemoglobin ABG Oxyhemoglobin VBG pH ABG Sodium ABG Potassium ABG Glucose Oxyhemoglobin Sodium Potassium Chloride Carbon Dioxide BUN Creatinine Glucose POC Glucose 225 H 224 H Lactic Acid Calcium Ferritin AST Alkaline Phosphatase Magnesium Lactate Dehydrogenase Total Creatine Kinase CK-MB (CK-2) C-Reactive Protein Total Protein Albumin Troponin T HDL Cholesterol Arterial Blood Glucose Urine WBC (Auto) 17.0 H Urine Creatinine Urine Total Protein Coronavirus (PCR) Crossmatch 05/28/20 05/29/20 05/29/20 Unknown 04:35 04:43 WBC RBC 3.48 L Hgb 9.8 L Hct 29.4 L MCHC RDW 16.0 H Lymph % (Auto) 7.4 L [place] % (Auto) Eos % (Auto) Lymph # 0.7 L [place] # Lymph # (Auto) [place] # (Auto) Seg Neutrophils % 89.1 H Seg Neuts % (Manual) Lymphocytes % (Manual) Seg Neutrophils # 8.1 H Seg Neutrophils # Man Lymphocytes # (Manual) Monocytes % (Manual) Eosinophils % (Manual) Monocytes # (Manual) Eosinophils # (Manual) D-Dimer Heparin Anti-Xa Level ABG pH POC ABG pCO2 POC ABG pO2 ABG pO2 ABG HCO3 19.3 L ABG O2 Saturation ABG Base Excess -4.5 L ABG Hemoglobin 9.7 L ABG Oxyhemoglobin VBG pH ABG Sodium ABG Potassium ABG Glucose Oxyhemoglobin Sodium Potassium Chloride Carbon Dioxide BUN Creatinine Glucose POC Glucose Lactic Acid Calcium Ferritin AST Alkaline Phosphatase Magnesium Lactate Dehydrogenase Total Creatine Kinase CK-MB (CK-2) C-Reactive Protein Total Protein Albumin Troponin T HDL Cholesterol Arterial Blood Glucose Urine WBC (Auto) Urine Creatinine Urine Total Protein Coronavirus (PCR) Positive A Crossmatch 05/29/20 05/29/20 05/29/20 04:43 15:10 17:17 WBC RBC Hgb 9.3 L Hct 28.7 L MCHC RDW Lymph % (Auto) [place] % (Auto) Eos % (Auto) Lymph # [place] # Lymph # (Auto) [place] # (Auto) Seg Neutrophils % Seg Neuts % (Manual) Lymphocytes % (Manual) Seg Neutrophils # Seg Neutrophils # Man Lymphocytes # (Manual) Monocytes % (Manual) Eosinophils % (Manual) Monocytes # (Manual) Eosinophils # (Manual) D-Dimer Heparin Anti-Xa Level ABG pH POC ABG pCO2 POC ABG pO2 ABG pO2 ABG HCO3 ABG O2 Saturation ABG Base Excess ABG Hemoglobin ABG Oxyhemoglobin VBG pH ABG Sodium ABG Potassium ABG Glucose Oxyhemoglobin Sodium Potassium Chloride 110.2 H Carbon Dioxide 18 L BUN 32 H Creatinine 1.4 H Glucose 180 H POC Glucose 147 H Lactic Acid Calcium Ferritin AST Alkaline Phosphatase Magnesium Lactate Dehydrogenase Total Creatine Kinase CK-MB (CK-2) C-Reactive Protein Total Protein Albumin Troponin T HDL Cholesterol Arterial Blood Glucose Urine WBC (Auto) Urine Creatinine Urine Total Protein Coronavirus (PCR) Crossmatch 05/30/20 05/30/20 05/30/20 00:08 00:12 04:15 WBC RBC Hgb Hct MCHC RDW Lymph % (Auto) [place] % (Auto) Eos % (Auto) Lymph # [place] # Lymph # (Auto) [place] # (Auto) Seg Neutrophils % Seg Neuts % (Manual) Lymphocytes % (Manual) Seg Neutrophils # Seg Neutrophils # Man Lymphocytes # (Manual) Monocytes % (Manual) Eosinophils % (Manual) Monocytes # (Manual) Eosinophils # (Manual) D-Dimer Heparin Anti-Xa Level 0.71 H ABG pH 7.460 H POC ABG pCO2 POC ABG pO2 ABG pO2 106.0 H ABG HCO3 18.9 L ABG O2 Saturation ABG Base Excess -4.4 L ABG Hemoglobin 6.8 L ABG Oxyhemoglobin VBG pH ABG Sodium ABG Potassium ABG Glucose Oxyhemoglobin Sodium Potassium Chloride Carbon Dioxide BUN Creatinine Glucose POC Glucose 195 H Lactic Acid Calcium Ferritin AST Alkaline Phosphatase Magnesium Lactate Dehydrogenase Total Creatine Kinase CK-MB (CK-2) C-Reactive Protein Total Protein Albumin Troponin T HDL Cholesterol Arterial Blood Glucose Urine WBC (Auto) Urine Creatinine Urine Total Protein Coronavirus (PCR) Crossmatch 05/30/20 05/30/20 05/30/20 06:07 08:37 12:33 WBC RBC Hgb Hct MCHC RDW Lymph % (Auto) [place] % (Auto) Eos % (Auto) Lymph # [place] # Lymph # (Auto) [place] # (Auto) Seg Neutrophils % Seg Neuts % (Manual) Lymphocytes % (Manual) Seg Neutrophils # Seg Neutrophils # Man Lymphocytes # (Manual) Monocytes % (Manual) Eosinophils % (Manual) Monocytes # (Manual) Eosinophils # (Manual) D-Dimer Heparin Anti-Xa Level 0.85 H ABG pH POC ABG pCO2 POC ABG pO2 ABG pO2 ABG HCO3 ABG O2 Saturation ABG Base Excess ABG Hemoglobin ABG Oxyhemoglobin VBG pH ABG Sodium ABG Potassium ABG Glucose Oxyhemoglobin Sodium Potassium Chloride Carbon Dioxide BUN Creatinine Glucose POC Glucose 182 H 187 H Lactic Acid Calcium Ferritin AST Alkaline Phosphatase Magnesium Lactate Dehydrogenase Total Creatine Kinase CK-MB (CK-2) C-Reactive Protein Total Protein Albumin Troponin T HDL Cholesterol Arterial Blood Glucose Urine WBC (Auto) Urine Creatinine Urine Total Protein Coronavirus (PCR) Crossmatch 05/30/20 05/30/20 05/30/20 15:58 17:57 23:36 WBC RBC Hgb Hct MCHC RDW Lymph % (Auto) [place] % (Auto) Eos % (Auto) Lymph # [place] # Lymph # (Auto) [place] # (Auto) Seg Neutrophils % Seg Neuts % (Manual) Lymphocytes % (Manual) Seg Neutrophils # Seg Neutrophils # Man Lymphocytes # (Manual) Monocytes % (Manual) Eosinophils % (Manual) Monocytes # (Manual) Eosinophils # (Manual) D-Dimer Heparin Anti-Xa Level 1.03 H ABG pH POC ABG pCO2 POC ABG pO2 ABG pO2 ABG HCO3 ABG O2 Saturation ABG Base Excess ABG Hemoglobin ABG Oxyhemoglobin VBG pH ABG Sodium ABG Potassium ABG Glucose Oxyhemoglobin Sodium Potassium Chloride Carbon Dioxide BUN Creatinine Glucose POC Glucose 208 H 185 H Lactic Acid Calcium Ferritin AST Alkaline Phosphatase Magnesium Lactate Dehydrogenase Total Creatine Kinase CK-MB (CK-2) C-Reactive Protein Total Protein Albumin Troponin T HDL Cholesterol Arterial Blood Glucose Urine WBC (Auto) Urine Creatinine Urine Total Protein Coronavirus (PCR) Crossmatch 05/31/20 05/31/20 05/31/20 02:16 03:55 06:16 WBC RBC Hgb 9.2 L Hct 27.5 L MCHC RDW Lymph % (Auto) [place] % (Auto) Eos % (Auto) Lymph # [place] # Lymph # (Auto) [place] # (Auto) Seg Neutrophils % Seg Neuts % (Manual) Lymphocytes % (Manual) Seg Neutrophils # Seg Neutrophils # Man Lymphocytes # (Manual) Monocytes % (Manual) Eosinophils % (Manual) Monocytes # (Manual) Eosinophils # (Manual) D-Dimer Heparin Anti-Xa Level ABG pH POC ABG pCO2 POC ABG pO2 ABG pO2 94.7 H ABG HCO3 18.6 L ABG O2 Saturation ABG Base Excess -5.5 L ABG Hemoglobin 7.9 L ABG Oxyhemoglobin VBG pH ABG Sodium ABG Potassium ABG Glucose Oxyhemoglobin Sodium Potassium Chloride Carbon Dioxide BUN Creatinine Glucose POC Glucose 160 H Lactic Acid Calcium Ferritin AST Alkaline Phosphatase Magnesium Lactate Dehydrogenase Total Creatine Kinase CK-MB (CK-2) C-Reactive Protein Total Protein Albumin Troponin T HDL Cholesterol Arterial Blood Glucose Urine WBC (Auto) Urine Creatinine Urine Total Protein Coronavirus (PCR) Crossmatch 05/31/20 05/31/20 05/31/20 12:20 13:03 18:13 WBC RBC Hgb Hct MCHC RDW Lymph % (Auto) [place] % (Auto) Eos % (Auto) Lymph # [place] # Lymph # (Auto) [place] # (Auto) Seg Neutrophils % Seg Neuts % (Manual) Lymphocytes % (Manual) Seg Neutrophils # Seg Neutrophils # Man Lymphocytes # (Manual) Monocytes % (Manual) Eosinophils % (Manual) Monocytes # (Manual) Eosinophils # (Manual) D-Dimer Heparin Anti-Xa Level ABG pH POC ABG pCO2 POC ABG pO2 ABG pO2 ABG HCO3 ABG O2 Saturation ABG Base Excess ABG Hemoglobin ABG Oxyhemoglobin VBG pH ABG Sodium ABG Potassium ABG Glucose Oxyhemoglobin Sodium Potassium Chloride Carbon Dioxide 18 L BUN 48 H Creatinine 1.6 H Glucose 115 H POC Glucose 128 H 159 H Lactic Acid Calcium 8.3 L Ferritin AST Alkaline Phosphatase Magnesium Lactate Dehydrogenase Total Creatine Kinase CK-MB (CK-2) C-Reactive Protein Total Protein 5.4 L Albumin 2.4 L Troponin T HDL Cholesterol Arterial Blood Glucose Urine WBC (Auto) Urine Creatinine Urine Total Protein Coronavirus (PCR) Crossmatch 05/31/20 06/01/20 06/01/20 23:51 04:00 05:48 WBC RBC Hgb Hct MCHC RDW Lymph % (Auto) [place] % (Auto) Eos % (Auto) Lymph # [place] # Lymph # (Auto) [place] # (Auto) Seg Neutrophils % Seg Neuts % (Manual) Lymphocytes % (Manual) Seg Neutrophils # Seg Neutrophils # Man Lymphocytes # (Manual) Monocytes % (Manual) Eosinophils % (Manual) Monocytes # (Manual) Eosinophils # (Manual) D-Dimer Heparin Anti-Xa Level ABG pH POC ABG pCO2 POC ABG pO2 ABG pO2 109.8 H ABG HCO3 18.8 L ABG O2 Saturation ABG Base Excess -5.9 L ABG Hemoglobin 7.8 L ABG Oxyhemoglobin VBG pH ABG Sodium ABG Potassium ABG Glucose Oxyhemoglobin Sodium Potassium Chloride Carbon Dioxide BUN Creatinine Glucose POC Glucose 171 H 133 H Lactic Acid Calcium Ferritin AST Alkaline Phosphatase Magnesium Lactate Dehydrogenase Total Creatine Kinase CK-MB (CK-2) C-Reactive Protein Total Protein Albumin Troponin T HDL Cholesterol Arterial Blood Glucose Urine WBC (Auto) Urine Creatinine Urine Total Protein Coronavirus (PCR) Crossmatch 06/01/20 06/01/20 06/02/20 12:28 17:29 00:08 WBC RBC Hgb Hct MCHC RDW Lymph % (Auto) [place] % (Auto) Eos % (Auto) Lymph # [place] # Lymph # (Auto) [place] # (Auto) Seg Neutrophils % Seg Neuts % (Manual) Lymphocytes % (Manual) Seg Neutrophils # Seg Neutrophils # Man Lymphocytes # (Manual) Monocytes % (Manual) Eosinophils % (Manual) Monocytes # (Manual) Eosinophils # (Manual) D-Dimer Heparin Anti-Xa Level ABG pH POC ABG pCO2 POC ABG pO2 ABG pO2 ABG HCO3 ABG O2 Saturation ABG Base Excess ABG Hemoglobin ABG Oxyhemoglobin VBG pH ABG Sodium ABG Potassium ABG Glucose Oxyhemoglobin Sodium Potassium Chloride Carbon Dioxide BUN Creatinine Glucose POC Glucose 199 H 209 H 162 H Lactic Acid Calcium Ferritin AST Alkaline Phosphatase Magnesium Lactate Dehydrogenase Total Creatine Kinase CK-MB (CK-2) C-Reactive Protein Total Protein Albumin Troponin T HDL Cholesterol Arterial Blood Glucose Urine WBC (Auto) Urine Creatinine Urine Total Protein Coronavirus (PCR) Crossmatch 06/02/20 06/02/20 06/02/20 04:20 04:20 04:44 WBC RBC Hgb 10.0 L Hct MCHC RDW Lymph % (Auto) [place] % (Auto) Eos % (Auto) Lymph # [place] # Lymph # (Auto) [place] # (Auto) Seg Neutrophils % Seg Neuts % (Manual) Lymphocytes % (Manual) Seg Neutrophils # Seg Neutrophils # Man Lymphocytes # (Manual) Monocytes % (Manual) Eosinophils % (Manual) Monocytes # (Manual) Eosinophils # (Manual) D-Dimer Heparin Anti-Xa Level 0.10 L ABG pH POC ABG pCO2 POC ABG pO2 ABG pO2 150.6 H ABG HCO3 ABG O2 Saturation ABG Base Excess -4.1 L ABG Hemoglobin 11.8 L ABG Oxyhemoglobin VBG pH ABG Sodium ABG Potassium ABG Glucose Oxyhemoglobin Sodium Potassium Chloride Carbon Dioxide BUN Creatinine Glucose POC Glucose Lactic Acid Calcium Ferritin AST Alkaline Phosphatase Magnesium Lactate Dehydrogenase Total Creatine Kinase CK-MB (CK-2) C-Reactive Protein Total Protein Albumin Troponin T HDL Cholesterol Arterial Blood Glucose Urine WBC (Auto) Urine Creatinine Urine Total Protein Coronavirus (PCR) Crossmatch 06/02/20 06/02/20 06/02/20 05:53 12:04 13:49 WBC RBC Hgb Hct MCHC RDW Lymph % (Auto) [place] % (Auto) Eos % (Auto) Lymph # [place] # Lymph # (Auto) [place] # (Auto) Seg Neutrophils % Seg Neuts % (Manual) Lymphocytes % (Manual) Seg Neutrophils # Seg Neutrophils # Man Lymphocytes # (Manual) Monocytes % (Manual) Eosinophils % (Manual) Monocytes # (Manual) Eosinophils # (Manual) D-Dimer Heparin Anti-Xa Level 0.28 L ABG pH POC ABG pCO2 POC ABG pO2 ABG pO2 ABG HCO3 ABG O2 Saturation ABG Base Excess ABG Hemoglobin ABG Oxyhemoglobin VBG pH ABG Sodium ABG Potassium ABG Glucose Oxyhemoglobin Sodium Potassium Chloride Carbon Dioxide BUN Creatinine Glucose POC Glucose 149 H 220 H Lactic Acid Calcium Ferritin AST Alkaline Phosphatase Magnesium Lactate Dehydrogenase Total Creatine Kinase CK-MB (CK-2) C-Reactive Protein Total Protein Albumin Troponin T HDL Cholesterol Arterial Blood Glucose Urine WBC (Auto) Urine Creatinine Urine Total Protein Coronavirus (PCR) Crossmatch 06/02/20 06/02/20 06/03/20 13:49 18:31 00:42 WBC RBC Hgb Hct MCHC RDW Lymph % (Auto) [place] % (Auto) Eos % (Auto) Lymph # [place] # Lymph # (Auto) [place] # (Auto) Seg Neutrophils % Seg Neuts % (Manual) Lymphocytes % (Manual) Seg Neutrophils # Seg Neutrophils # Man Lymphocytes # (Manual) Monocytes % (Manual) Eosinophils % (Manual) Monocytes # (Manual) Eosinophils # (Manual) D-Dimer 769.68 H Heparin Anti-Xa Level ABG pH POC ABG pCO2 POC ABG pO2 ABG pO2 ABG HCO3 ABG O2 Saturation ABG Base Excess ABG Hemoglobin ABG Oxyhemoglobin VBG pH ABG Sodium ABG Potassium ABG Glucose Oxyhemoglobin Sodium Potassium Chloride Carbon Dioxide BUN Creatinine Glucose POC Glucose 225 H 212 H Lactic Acid Calcium Ferritin AST Alkaline Phosphatase Magnesium Lactate Dehydrogenase Total Creatine Kinase CK-MB (CK-2) C-Reactive Protein Total Protein Albumin Troponin T HDL Cholesterol Arterial Blood Glucose Urine WBC (Auto) Urine Creatinine Urine Total Protein Coronavirus (PCR) Crossmatch 06/03/20 06/03/20 06/03/20 05:16 05:16 05:25 WBC 11.4 H RBC Hgb Hct MCHC RDW 16.4 H Lymph % (Auto) [place] % (Auto) Eos % (Auto) Lymph # [place] # Lymph # (Auto) [place] # (Auto) Seg Neutrophils % Seg Neuts % (Manual) Lymphocytes % (Manual) Seg Neutrophils # Seg Neutrophils # Man Lymphocytes # (Manual) Monocytes % (Manual) Eosinophils % (Manual) Monocytes # (Manual) Eosinophils # (Manual) D-Dimer Heparin Anti-Xa Level ABG pH POC ABG pCO2 POC ABG pO2 ABG pO2 160.9 H ABG HCO3 19.4 L ABG O2 Saturation ABG Base Excess -4.9 L ABG Hemoglobin 7.0 L ABG Oxyhemoglobin VBG pH ABG Sodium ABG Potassium ABG Glucose Oxyhemoglobin Sodium Potassium Chloride Carbon Dioxide 18 L BUN 65 H Creatinine 2.0 H Glucose 175 H POC Glucose Lactic Acid Calcium 8.0 L Ferritin AST Alkaline Phosphatase Magnesium Lactate Dehydrogenase Total Creatine Kinase CK-MB (CK-2) C-Reactive Protein Total Protein 5.5 L Albumin 2.2 L Troponin T HDL Cholesterol Arterial Blood Glucose Urine WBC (Auto) Urine Creatinine Urine Total Protein Coronavirus (PCR) Crossmatch 06/03/20 06/03/20 06/03/20 06:07 11:58 18:24 WBC RBC Hgb Hct MCHC RDW Lymph % (Auto) [place] % (Auto) Eos % (Auto) Lymph # [place] # Lymph # (Auto) [place] # (Auto) Seg Neutrophils % Seg Neuts % (Manual) Lymphocytes % (Manual) Seg Neutrophils # Seg Neutrophils # Man Lymphocytes # (Manual) Monocytes % (Manual) Eosinophils % (Manual) Monocytes # (Manual) Eosinophils # (Manual) D-Dimer Heparin Anti-Xa Level ABG pH POC ABG pCO2 POC ABG pO2 ABG pO2 ABG HCO3 ABG O2 Saturation ABG Base Excess ABG Hemoglobin ABG Oxyhemoglobin VBG pH ABG Sodium ABG Potassium ABG Glucose Oxyhemoglobin Sodium Potassium Chloride Carbon Dioxide BUN Creatinine Glucose POC Glucose 177 H 163 H 211 H Lactic Acid Calcium Ferritin AST Alkaline Phosphatase Magnesium Lactate Dehydrogenase Total Creatine Kinase CK-MB (CK-2) C-Reactive Protein Total Protein Albumin Troponin T HDL Cholesterol Arterial Blood Glucose Urine WBC (Auto) Urine Creatinine Urine Total Protein Coronavirus (PCR) Crossmatch 06/03/20 06/03/20 06/04/20 21:50 Unknown 00:26 WBC RBC Hgb Hct MCHC RDW Lymph % (Auto) [place] % (Auto) Eos % (Auto) Lymph # [place] # Lymph # (Auto) [place] # (Auto) Seg Neutrophils % Seg Neuts % (Manual) Lymphocytes % (Manual) Seg Neutrophils # Seg Neutrophils # Man Lymphocytes # (Manual) Monocytes % (Manual) Eosinophils % (Manual) Monocytes # (Manual) Eosinophils # (Manual) D-Dimer Heparin Anti-Xa Level ABG pH POC ABG pCO2 POC ABG pO2 ABG pO2 ABG HCO3 ABG O2 Saturation ABG Base Excess ABG Hemoglobin ABG Oxyhemoglobin VBG pH ABG Sodium ABG Potassium ABG Glucose Oxyhemoglobin Sodium 135 L Potassium Chloride Carbon Dioxide 18 L BUN Creatinine Glucose POC Glucose 241 H Lactic Acid Calcium Ferritin AST Alkaline Phosphatase Magnesium Lactate Dehydrogenase Total Creatine Kinase CK-MB (CK-2) C-Reactive Protein Total Protein Albumin Troponin T HDL Cholesterol Arterial Blood Glucose Urine WBC (Auto) 11.0 H Urine Creatinine Urine Total Protein Coronavirus (PCR) Crossmatch 06/04/20 06/04/20 06/04/20 03:35 04:19 04:19 WBC RBC 3.15 L Hgb 8.9 L Hct 26.8 L D MCHC RDW 15.9 H Lymph % (Auto) 6.0 L [place] % (Auto) Eos % (Auto) Lymph # 0.6 L [place] # Lymph # (Auto) [place] # (Auto) Seg Neutrophils % 86.6 H Seg Neuts % (Manual) Lymphocytes % (Manual) Seg Neutrophils # 9.1 H Seg Neutrophils # Man Lymphocytes # (Manual) Monocytes % (Manual) Eosinophils % (Manual) Monocytes # (Manual) Eosinophils # (Manual) D-Dimer Heparin Anti-Xa Level ABG pH 7.331 L POC ABG pCO2 POC ABG pO2 ABG pO2 ABG HCO3 ABG O2 Saturation ABG Base Excess -4.7 L ABG Hemoglobin 11.0 L ABG Oxyhemoglobin VBG pH ABG Sodium ABG Potassium ABG Glucose Oxyhemoglobin 93.9 L Sodium 136 L Potassium Chloride Carbon Dioxide 20 L BUN 73 H Creatinine 2.0 H Glucose 192 H POC Glucose Lactic Acid Calcium 8.0 L Ferritin AST Alkaline Phosphatase Magnesium Lactate Dehydrogenase 271 H Total Creatine Kinase CK-MB (CK-2) C-Reactive Protein 2.20 H Total Protein 5.0 L Albumin 2.0 L Troponin T HDL Cholesterol Arterial Blood Glucose Urine WBC (Auto) Urine Creatinine Urine Total Protein Coronavirus (PCR) Crossmatch 06/04/20 06/04/20 06/04/20 04:19 05:51 11:48 WBC RBC Hgb Hct MCHC RDW Lymph % (Auto) [place] % (Auto) Eos % (Auto) Lymph # [place] # Lymph # (Auto) [place] # (Auto) Seg Neutrophils % Seg Neuts % (Manual) Lymphocytes % (Manual) Seg Neutrophils # Seg Neutrophils # Man Lymphocytes # (Manual) Monocytes % (Manual) Eosinophils % (Manual) Monocytes # (Manual) Eosinophils # (Manual) D-Dimer 414.52 H Heparin Anti-Xa Level ABG pH POC ABG pCO2 POC ABG pO2 ABG pO2 ABG HCO3 ABG O2 Saturation ABG Base Excess ABG Hemoglobin ABG Oxyhemoglobin VBG pH ABG Sodium ABG Potassium ABG Glucose Oxyhemoglobin Sodium Potassium Chloride Carbon Dioxide BUN Creatinine Glucose POC Glucose 179 H 213 H Lactic Acid Calcium Ferritin AST Alkaline Phosphatase Magnesium Lactate Dehydrogenase Total Creatine Kinase CK-MB (CK-2) C-Reactive Protein Total Protein Albumin Troponin T HDL Cholesterol Arterial Blood Glucose Urine WBC (Auto) Urine Creatinine Urine Total Protein Coronavirus (PCR) Crossmatch 06/04/20 06/05/20 06/05/20 18:25 00:16 05:00 WBC RBC Hgb Hct MCHC RDW Lymph % (Auto) [place] % (Auto) Eos % (Auto) Lymph # [place] # Lymph # (Auto) [place] # (Auto) Seg Neutrophils % Seg Neuts % (Manual) Lymphocytes % (Manual) Seg Neutrophils # Seg Neutrophils # Man Lymphocytes # (Manual) Monocytes % (Manual) Eosinophils % (Manual) Monocytes # (Manual) Eosinophils # (Manual) D-Dimer Heparin Anti-Xa Level ABG pH 7.286 L POC ABG pCO2 POC ABG pO2 ABG pO2 96.2 H ABG HCO3 ABG O2 Saturation ABG Base Excess -6.3 L ABG Hemoglobin 8.8 L ABG Oxyhemoglobin VBG pH ABG Sodium ABG Potassium ABG Glucose Oxyhemoglobin 94.8 L Sodium Potassium Chloride Carbon Dioxide BUN Creatinine Glucose POC Glucose 238 H 183 H Lactic Acid Calcium Ferritin AST Alkaline Phosphatase Magnesium Lactate Dehydrogenase Total Creatine Kinase CK-MB (CK-2) C-Reactive Protein Total Protein Albumin Troponin T HDL Cholesterol Arterial Blood Glucose Urine WBC (Auto) Urine Creatinine Urine Total Protein Coronavirus (PCR) Crossmatch 06/05/20 06/05/20 06/05/20 05:39 07:25 07:25 WBC RBC 2.97 L Hgb 8.7 L Hct 25.7 L MCHC RDW 16.0 H Lymph % (Auto) 8.8 L [place] % (Auto) 13.3 H Eos % (Auto) Lymph # 0.8 L [place] # 1.3 H Lymph # (Auto) [place] # (Auto) Seg Neutrophils % 77.3 H Seg Neuts % (Manual) Lymphocytes % (Manual) Seg Neutrophils # Seg Neutrophils # Man Lymphocytes # (Manual) Monocytes % (Manual) Eosinophils % (Manual) Monocytes # (Manual) Eosinophils # (Manual) D-Dimer Heparin Anti-Xa Level ABG pH POC ABG pCO2 POC ABG pO2 ABG pO2 ABG HCO3 ABG O2 Saturation ABG Base Excess ABG Hemoglobin ABG Oxyhemoglobin VBG pH ABG Sodium ABG Potassium ABG Glucose Oxyhemoglobin Sodium 133 L Potassium Chloride Carbon Dioxide 17 L BUN 89 H Creatinine 2.8 H Glucose 176 H POC Glucose 149 H Lactic Acid Calcium 7.7 L Ferritin AST Alkaline Phosphatase Magnesium Lactate Dehydrogenase Total Creatine Kinase CK-MB (CK-2) C-Reactive Protein Total Protein 4.2 L Albumin 1.9 L Troponin T HDL Cholesterol Arterial Blood Glucose Urine WBC (Auto) Urine Creatinine Urine Total Protein Coronavirus (PCR) Crossmatch 06/05/20 06/05/20 06/05/20 07:25 12:05 15:41 WBC RBC Hgb Hct MCHC RDW Lymph % (Auto) [place] % (Auto) Eos % (Auto) Lymph # [place] # Lymph # (Auto) [place] # (Auto) Seg Neutrophils % Seg Neuts % (Manual) Lymphocytes % (Manual) Seg Neutrophils # Seg Neutrophils # Man Lymphocytes # (Manual) Monocytes % (Manual) Eosinophils % (Manual) Monocytes # (Manual) Eosinophils # (Manual) D-Dimer Heparin Anti-Xa Level 0.76 H 0.81 H ABG pH POC ABG pCO2 POC ABG pO2 ABG pO2 ABG HCO3 ABG O2 Saturation ABG Base Excess ABG Hemoglobin ABG Oxyhemoglobin VBG pH ABG Sodium ABG Potassium ABG Glucose Oxyhemoglobin Sodium Potassium Chloride Carbon Dioxide BUN Creatinine Glucose POC Glucose 198 H Lactic Acid Calcium Ferritin AST Alkaline Phosphatase Magnesium Lactate Dehydrogenase Total Creatine Kinase CK-MB (CK-2) C-Reactive Protein Total Protein Albumin Troponin T HDL Cholesterol Arterial Blood Glucose Urine WBC (Auto) Urine Creatinine Urine Total Protein Coronavirus (PCR) Crossmatch 06/05/20 06/05/20 06/06/20 18:08 23:25 04:00 WBC RBC Hgb Hct MCHC RDW Lymph % (Auto) [place] % (Auto) Eos % (Auto) Lymph # [place] # Lymph # (Auto) [place] # (Auto) Seg Neutrophils % Seg Neuts % (Manual) Lymphocytes % (Manual) Seg Neutrophils # Seg Neutrophils # Man Lymphocytes # (Manual) Monocytes % (Manual) Eosinophils % (Manual) Monocytes # (Manual) Eosinophils # (Manual) D-Dimer Heparin Anti-Xa Level ABG pH POC ABG pCO2 POC ABG pO2 ABG pO2 ABG HCO3 ABG O2 Saturation ABG Base Excess ABG Hemoglobin ABG Oxyhemoglobin VBG pH ABG Sodium ABG Potassium ABG Glucose Oxyhemoglobin Sodium Potassium Chloride Carbon Dioxide BUN Creatinine Glucose POC Glucose 223 H 169 H Lactic Acid Calcium Ferritin AST Alkaline Phosphatase Magnesium Lactate Dehydrogenase Total Creatine Kinase CK-MB (CK-2) C-Reactive Protein Total Protein Albumin Troponin T HDL Cholesterol Arterial Blood Glucose Urine WBC (Auto) 15.0 H Urine Creatinine Urine Total Protein Coronavirus (PCR) Crossmatch 06/06/20 06/06/20 06/06/20 04:00 05:33 05:38 WBC RBC 2.97 L Hgb 8.7 L Hct 26.8 L MCHC RDW 16.8 H Lymph % (Auto) [place] % (Auto) Eos % (Auto) Lymph # [place] # Lymph # (Auto) [place] # (Auto) Seg Neutrophils % Seg Neuts % (Manual) Lymphocytes % (Manual) Seg Neutrophils # Seg Neutrophils # Man Lymphocytes # (Manual) Monocytes % (Manual) Eosinophils % (Manual) Monocytes # (Manual) Eosinophils # (Manual) D-Dimer Heparin Anti-Xa Level ABG pH POC ABG pCO2 POC ABG pO2 ABG pO2 ABG HCO3 ABG O2 Saturation ABG Base Excess ABG Hemoglobin ABG Oxyhemoglobin VBG pH ABG Sodium ABG Potassium ABG Glucose Oxyhemoglobin Sodium Potassium Chloride Carbon Dioxide BUN Creatinine Glucose POC Glucose 186 H Lactic Acid Calcium Ferritin AST Alkaline Phosphatase Magnesium Lactate Dehydrogenase Total Creatine Kinase CK-MB (CK-2) C-Reactive Protein Total Protein Albumin Troponin T HDL Cholesterol Arterial Blood Glucose Urine WBC (Auto) Urine Creatinine 82.2 H Urine Total Protein 196 H Coronavirus (PCR) Crossmatch 06/06/20 06/06/20 06/06/20 05:38 12:25 17:03 WBC RBC Hgb Hct MCHC RDW Lymph % (Auto) [place] % (Auto) Eos % (Auto) Lymph # [place] # Lymph # (Auto) [place] # (Auto) Seg Neutrophils % Seg Neuts % (Manual) Lymphocytes % (Manual) Seg Neutrophils # Seg Neutrophils # Man Lymphocytes # (Manual) Monocytes % (Manual) Eosinophils % (Manual) Monocytes # (Manual) Eosinophils # (Manual) D-Dimer Heparin Anti-Xa Level ABG pH POC ABG pCO2 POC ABG pO2 ABG pO2 ABG HCO3 ABG O2 Saturation ABG Base Excess ABG Hemoglobin ABG Oxyhemoglobin VBG pH ABG Sodium ABG Potassium ABG Glucose Oxyhemoglobin Sodium 134 L Potassium 5.2 H Chloride Carbon Dioxide 18 L BUN 97 H Creatinine 2.5 H Glucose 193 H POC Glucose 239 H 252 H Lactic Acid Calcium 7.5 L Ferritin AST Alkaline Phosphatase Magnesium Lactate Dehydrogenase Total Creatine Kinase CK-MB (CK-2) C-Reactive Protein Total Protein 4.1 L Albumin 1.9 L Troponin T HDL Cholesterol Arterial Blood Glucose Urine WBC (Auto) Urine Creatinine Urine Total Protein Coronavirus (PCR) Crossmatch 06/07/20 06/07/20 06/07/20 00:16 01:49 04:00 WBC RBC 2.91 L Hgb 8.4 L Hct 25.0 L MCHC RDW 16.1 H Lymph % (Auto) 5.7 L [place] % (Auto) 10.5 H Eos % (Auto) Lymph # 0.6 L [place] # 1.1 H Lymph # (Auto) [place] # (Auto) Seg Neutrophils % 83.6 H Seg Neuts % (Manual) Lymphocytes % (Manual) Seg Neutrophils # 9.1 H Seg Neutrophils # Man Lymphocytes # (Manual) Monocytes % (Manual) Eosinophils % (Manual) Monocytes # (Manual) Eosinophils # (Manual) D-Dimer Heparin Anti-Xa Level 0.26 L ABG pH POC ABG pCO2 POC ABG pO2 ABG pO2 ABG HCO3 ABG O2 Saturation ABG Base Excess ABG Hemoglobin ABG Oxyhemoglobin VBG pH ABG Sodium ABG Potassium ABG Glucose Oxyhemoglobin Sodium Potassium Chloride Carbon Dioxide BUN Creatinine Glucose POC Glucose 173 H Lactic Acid Calcium Ferritin AST Alkaline Phosphatase Magnesium Lactate Dehydrogenase Total Creatine Kinase CK-MB (CK-2) C-Reactive Protein Total Protein Albumin Troponin T HDL Cholesterol Arterial Blood Glucose Urine WBC (Auto) Urine Creatinine Urine Total Protein Coronavirus (PCR) Crossmatch 06/07/20 06/07/20 06/07/20 04:00 04:54 05:51 WBC RBC Hgb Hct MCHC RDW Lymph % (Auto) [place] % (Auto) Eos % (Auto) Lymph # [place] # Lymph # (Auto) [place] # (Auto) Seg Neutrophils % Seg Neuts % (Manual) Lymphocytes % (Manual) Seg Neutrophils # Seg Neutrophils # Man Lymphocytes # (Manual) Monocytes % (Manual) Eosinophils % (Manual) Monocytes # (Manual) Eosinophils # (Manual) D-Dimer Heparin Anti-Xa Level ABG pH 7.317 L POC ABG pCO2 POC ABG pO2 ABG pO2 71.4 L ABG HCO3 ABG O2 Saturation 94.3 L ABG Base Excess -4.8 L ABG Hemoglobin 7.1 L ABG Oxyhemoglobin VBG pH ABG Sodium ABG Potassium ABG Glucose Oxyhemoglobin 92.2 L Sodium 133 L Potassium Chloride Carbon Dioxide 18 L BUN 100 H Creatinine 2.5 H Glucose 158 H POC Glucose 168 H Lactic Acid Calcium 7.6 L Ferritin AST Alkaline Phosphatase Magnesium Lactate Dehydrogenase Total Creatine Kinase CK-MB (CK-2) C-Reactive Protein Total Protein 4.7 L Albumin 2.0 L Troponin T HDL Cholesterol Arterial Blood Glucose Urine WBC (Auto) Urine Creatinine Urine Total Protein Coronavirus (PCR) Crossmatch 06/07/20 06/07/20 06/07/20 12:03 17:17 20:10 WBC RBC Hgb Hct MCHC RDW Lymph % (Auto) [place] % (Auto) Eos % (Auto) Lymph # [place] # Lymph # (Auto) [place] # (Auto) Seg Neutrophils % Seg Neuts % (Manual) Lymphocytes % (Manual) Seg Neutrophils # Seg Neutrophils # Man Lymphocytes # (Manual) Monocytes % (Manual) Eosinophils % (Manual) Monocytes # (Manual) Eosinophils # (Manual) D-Dimer Heparin Anti-Xa Level 0.17 L ABG pH POC ABG pCO2 POC ABG pO2 ABG pO2 ABG HCO3 ABG O2 Saturation ABG Base Excess ABG Hemoglobin ABG Oxyhemoglobin VBG pH ABG Sodium ABG Potassium ABG Glucose Oxyhemoglobin Sodium Potassium Chloride Carbon Dioxide BUN Creatinine Glucose POC Glucose 276 H 281 H Lactic Acid Calcium Ferritin AST Alkaline Phosphatase Magnesium Lactate Dehydrogenase Total Creatine Kinase CK-MB (CK-2) C-Reactive Protein Total Protein Albumin Troponin T HDL Cholesterol Arterial Blood Glucose Urine WBC (Auto) Urine Creatinine Urine Total Protein Coronavirus (PCR) Crossmatch 06/08/20 06/08/20 06/08/20 00:02 04:47 04:47 WBC 16.4 H RBC 3.07 L Hgb 8.6 L Hct 26.5 L MCHC RDW 16.3 H Lymph % (Auto) [place] % (Auto) Eos % (Auto) Lymph # [place] # Lymph # (Auto) [place] # (Auto) Seg Neutrophils % Seg Neuts % (Manual) 90.0 H Lymphocytes % (Manual) 3.0 L Seg Neutrophils # Seg Neutrophils # Man 14.8 H Lymphocytes # (Manual) 0.5 L Monocytes % (Manual) Eosinophils % (Manual) Monocytes # (Manual) 1.1 H Eosinophils # (Manual) D-Dimer Heparin Anti-Xa Level ABG pH POC ABG pCO2 POC ABG pO2 ABG pO2 ABG HCO3 ABG O2 Saturation ABG Base Excess ABG Hemoglobin ABG Oxyhemoglobin VBG pH ABG Sodium ABG Potassium ABG Glucose Oxyhemoglobin Sodium 129 L Potassium Chloride 95.6 L Carbon Dioxide 17 L BUN 106 H Creatinine 2.5 H Glucose 213 H POC Glucose 242 H Lactic Acid Calcium 7.6 L Ferritin AST Alkaline Phosphatase Magnesium Lactate Dehydrogenase Total Creatine Kinase CK-MB (CK-2) C-Reactive Protein Total Protein 5.0 L Albumin 2.1 L Troponin T HDL Cholesterol Arterial Blood Glucose Urine WBC (Auto) Urine Creatinine Urine Total Protein Coronavirus (PCR) Crossmatch 06/08/20 06/08/20 06/08/20 05:40 11:55 17:54 WBC RBC Hgb Hct MCHC RDW Lymph % (Auto) [place] % (Auto) Eos % (Auto) Lymph # [place] # Lymph # (Auto) [place] # (Auto) Seg Neutrophils % Seg Neuts % (Manual) Lymphocytes % (Manual) Seg Neutrophils # Seg Neutrophils # Man Lymphocytes # (Manual) Monocytes % (Manual) Eosinophils % (Manual) Monocytes # (Manual) Eosinophils # (Manual) D-Dimer Heparin Anti-Xa Level ABG pH POC ABG pCO2 POC ABG pO2 ABG pO2 ABG HCO3 ABG O2 Saturation ABG Base Excess ABG Hemoglobin ABG Oxyhemoglobin VBG pH ABG Sodium ABG Potassium ABG Glucose Oxyhemoglobin Sodium Potassium Chloride Carbon Dioxide BUN Creatinine Glucose POC Glucose 221 H 218 H 163 H Lactic Acid Calcium Ferritin AST Alkaline Phosphatase Magnesium Lactate Dehydrogenase Total Creatine Kinase CK-MB (CK-2) C-Reactive Protein Total Protein Albumin Troponin T HDL Cholesterol Arterial Blood Glucose Urine WBC (Auto) Urine Creatinine Urine Total Protein Coronavirus (PCR) Crossmatch 06/08/20 06/09/20 06/09/20 22:01 00:09 05:16 WBC 19.0 H RBC 3.35 L Hgb 9.2 L Hct 28.5 L MCHC RDW 16.3 H Lymph % (Auto) [place] % (Auto) Eos % (Auto) Lymph # [place] # Lymph # (Auto) [place] # (Auto) Seg Neutrophils % Seg Neuts % (Manual) 85.0 H Lymphocytes % (Manual) 7.0 L Seg Neutrophils # Seg Neutrophils # Man 16.2 H Lymphocytes # (Manual) Monocytes % (Manual) Eosinophils % (Manual) Monocytes # (Manual) 1.3 H Eosinophils # (Manual) D-Dimer Heparin Anti-Xa Level ABG pH POC ABG pCO2 POC ABG pO2 ABG pO2 ABG HCO3 ABG O2 Saturation ABG Base Excess ABG Hemoglobin ABG Oxyhemoglobin VBG pH ABG Sodium ABG Potassium ABG Glucose Oxyhemoglobin Sodium Potassium Chloride Carbon Dioxide BUN Creatinine Glucose POC Glucose 182 H 150 H Lactic Acid Calcium Ferritin AST Alkaline Phosphatase Magnesium Lactate Dehydrogenase Total Creatine Kinase CK-MB (CK-2) C-Reactive Protein Total Protein Albumin Troponin T HDL Cholesterol Arterial Blood Glucose Urine WBC (Auto) Urine Creatinine Urine Total Protein Coronavirus (PCR) Crossmatch 06/09/20 06/09/20 06/09/20 05:16 05:24 11:29 WBC RBC Hgb Hct MCHC RDW Lymph % (Auto) [place] % (Auto) Eos % (Auto) Lymph # [place] # Lymph # (Auto) [place] # (Auto) Seg Neutrophils % Seg Neuts % (Manual) Lymphocytes % (Manual) Seg Neutrophils # Seg Neutrophils # Man Lymphocytes # (Manual) Monocytes % (Manual) Eosinophils % (Manual) Monocytes # (Manual) Eosinophils # (Manual) D-Dimer Heparin Anti-Xa Level ABG pH POC ABG pCO2 POC ABG pO2 ABG pO2 ABG HCO3 ABG O2 Saturation ABG Base Excess ABG Hemoglobin ABG Oxyhemoglobin VBG pH ABG Sodium ABG Potassium ABG Glucose Oxyhemoglobin Sodium 133 L Potassium Chloride Carbon Dioxide 19 L BUN 109 H Creatinine 2.1 H Glucose 133 H POC Glucose 128 H 119 H Lactic Acid Calcium 7.7 L Ferritin AST Alkaline Phosphatase < 5 L Magnesium Lactate Dehydrogenase Total Creatine Kinase CK-MB (CK-2) C-Reactive Protein Total Protein 4.6 L Albumin < 0.2 L Troponin T HDL Cholesterol Arterial Blood Glucose Urine WBC (Auto) Urine Creatinine Urine Total Protein Coronavirus (PCR) Crossmatch 06/09/20 06/10/20 06/10/20 17:32 00:00 05:49 WBC RBC Hgb Hct MCHC RDW Lymph % (Auto) [place] % (Auto) Eos % (Auto) Lymph # [place] # Lymph # (Auto) [place] # (Auto) Seg Neutrophils % Seg Neuts % (Manual) Lymphocytes % (Manual) Seg Neutrophils # Seg Neutrophils # Man Lymphocytes # (Manual) Monocytes % (Manual) Eosinophils % (Manual) Monocytes # (Manual) Eosinophils # (Manual) D-Dimer Heparin Anti-Xa Level 0.19 L ABG pH POC ABG pCO2 POC ABG pO2 ABG pO2 ABG HCO3 ABG O2 Saturation ABG Base Excess ABG Hemoglobin ABG Oxyhemoglobin VBG pH ABG Sodium ABG Potassium ABG Glucose Oxyhemoglobin Sodium Potassium Chloride Carbon Dioxide BUN Creatinine Glucose POC Glucose 106 H 117 H Lactic Acid Calcium Ferritin AST Alkaline Phosphatase Magnesium Lactate Dehydrogenase Total Creatine Kinase CK-MB (CK-2) C-Reactive Protein Total Protein Albumin Troponin T HDL Cholesterol Arterial Blood Glucose Urine WBC (Auto) Urine Creatinine Urine Total Protein Coronavirus (PCR) Crossmatch 06/10/20 06/10/20 06/10/20 05:54 07:40 11:40 WBC RBC Hgb Hct MCHC RDW Lymph % (Auto) [place] % (Auto) Eos % (Auto) Lymph # [place] # Lymph # (Auto) [place] # (Auto) Seg Neutrophils % Seg Neuts % (Manual) Lymphocytes % (Manual) Seg Neutrophils # Seg Neutrophils # Man Lymphocytes # (Manual) Monocytes % (Manual) Eosinophils % (Manual) Monocytes # (Manual) Eosinophils # (Manual) D-Dimer Heparin Anti-Xa Level ABG pH POC ABG pCO2 POC ABG pO2 ABG pO2 ABG HCO3 ABG O2 Saturation ABG Base Excess ABG Hemoglobin ABG Oxyhemoglobin VBG pH ABG Sodium ABG Potassium ABG Glucose Oxyhemoglobin Sodium 146 H D Potassium Chloride Carbon Dioxide 20 L BUN 99 H Creatinine 1.9 H Glucose 121 H POC Glucose 127 H 138 H Lactic Acid Calcium 8.2 L Ferritin AST Alkaline Phosphatase Magnesium Lactate Dehydrogenase Total Creatine Kinase CK-MB (CK-2) C-Reactive Protein Total Protein Albumin Troponin T HDL Cholesterol Arterial Blood Glucose Urine WBC (Auto) Urine Creatinine Urine Total Protein Coronavirus (PCR) Crossmatch 06/10/20 06/10/20 06/10/20 14:44 17:31 23:22 WBC RBC Hgb Hct MCHC RDW Lymph % (Auto) [place] % (Auto) Eos % (Auto) Lymph # [place] # Lymph # (Auto) [place] # (Auto) Seg Neutrophils % Seg Neuts % (Manual) Lymphocytes % (Manual) Seg Neutrophils # Seg Neutrophils # Man Lymphocytes # (Manual) Monocytes % (Manual) Eosinophils % (Manual) Monocytes # (Manual) Eosinophils # (Manual) D-Dimer Heparin Anti-Xa Level 0.17 L ABG pH POC ABG pCO2 POC ABG pO2 ABG pO2 ABG HCO3 ABG O2 Saturation ABG Base Excess ABG Hemoglobin ABG Oxyhemoglobin VBG pH ABG Sodium ABG Potassium ABG Glucose Oxyhemoglobin Sodium Potassium Chloride Carbon Dioxide BUN Creatinine Glucose POC Glucose 128 H 114 H Lactic Acid Calcium Ferritin AST Alkaline Phosphatase Magnesium Lactate Dehydrogenase Total Creatine Kinase CK-MB (CK-2) C-Reactive Protein Total Protein Albumin Troponin T HDL Cholesterol Arterial Blood Glucose Urine WBC (Auto) Urine Creatinine Urine Total Protein Coronavirus (PCR) Crossmatch 06/11/20 06/11/20 06/11/20 00:22 03:45 03:45 WBC 14.6 H RBC 2.77 L Hgb 7.9 L Hct 24.3 L MCHC RDW 16.8 H Lymph % (Auto) 6.6 L [place] % (Auto) 8.5 H Eos % (Auto) Lymph # 1.0 L [place] # 1.2 H Lymph # (Auto) [place] # (Auto) Seg Neutrophils % 82.9 H Seg Neuts % (Manual) Lymphocytes % (Manual) Seg Neutrophils # 12.1 H Seg Neutrophils # Man Lymphocytes # (Manual) Monocytes % (Manual) Eosinophils % (Manual) Monocytes # (Manual) Eosinophils # (Manual) D-Dimer Heparin Anti-Xa Level 0.24 L ABG pH POC ABG pCO2 POC ABG pO2 ABG pO2 ABG HCO3 ABG O2 Saturation ABG Base Excess ABG Hemoglobin ABG Oxyhemoglobin VBG pH ABG Sodium ABG Potassium ABG Glucose Oxyhemoglobin Sodium Potassium Chloride Carbon Dioxide 20 L BUN 88 H Creatinine 1.5 H Glucose 111 H POC Glucose Lactic Acid Calcium 8.2 L Ferritin AST Alkaline Phosphatase Magnesium Lactate Dehydrogenase Total Creatine Kinase CK-MB (CK-2) C-Reactive Protein Total Protein Albumin Troponin T HDL Cholesterol Arterial Blood Glucose Urine WBC (Auto) Urine Creatinine Urine Total Protein Coronavirus (PCR) Crossmatch 06/11/20 06/11/20 06/11/20 06:03 10:22 11:11 WBC RBC Hgb Hct MCHC RDW Lymph % (Auto) [place] % (Auto) Eos % (Auto) Lymph # [place] # Lymph # (Auto) [place] # (Auto) Seg Neutrophils % Seg Neuts % (Manual) Lymphocytes % (Manual) Seg Neutrophils # Seg Neutrophils # Man Lymphocytes # (Manual) Monocytes % (Manual) Eosinophils % (Manual) Monocytes # (Manual) Eosinophils # (Manual) D-Dimer Heparin Anti-Xa Level 0.26 L ABG pH POC ABG pCO2 POC ABG pO2 ABG pO2 ABG HCO3 ABG O2 Saturation ABG Base Excess ABG Hemoglobin 9.6 L ABG Oxyhemoglobin VBG pH ABG Sodium ABG Potassium ABG Glucose Oxyhemoglobin Sodium Potassium Chloride Carbon Dioxide BUN Creatinine Glucose POC Glucose 114 H Lactic Acid Calcium Ferritin AST Alkaline Phosphatase Magnesium Lactate Dehydrogenase Total Creatine Kinase CK-MB (CK-2) C-Reactive Protein Total Protein Albumin Troponin T HDL Cholesterol Arterial Blood Glucose Urine WBC (Auto) Urine Creatinine Urine Total Protein Coronavirus (PCR) Crossmatch 06/11/20 06/11/20 06/12/20 12:24 17:24 00:21 WBC RBC Hgb Hct MCHC RDW Lymph % (Auto) [place] % (Auto) Eos % (Auto) Lymph # [place] # Lymph # (Auto) [place] # (Auto) Seg Neutrophils % Seg Neuts % (Manual) Lymphocytes % (Manual) Seg Neutrophils # Seg Neutrophils # Man Lymphocytes # (Manual) Monocytes % (Manual) Eosinophils % (Manual) Monocytes # (Manual) Eosinophils # (Manual) D-Dimer Heparin Anti-Xa Level ABG pH POC ABG pCO2 POC ABG pO2 ABG pO2 ABG HCO3 ABG O2 Saturation ABG Base Excess ABG Hemoglobin ABG Oxyhemoglobin VBG pH ABG Sodium ABG Potassium ABG Glucose Oxyhemoglobin Sodium Potassium Chloride Carbon Dioxide BUN Creatinine Glucose POC Glucose 119 H 126 H 117 H Lactic Acid Calcium Ferritin AST Alkaline Phosphatase Magnesium Lactate Dehydrogenase Total Creatine Kinase CK-MB (CK-2) C-Reactive Protein Total Protein Albumin Troponin T HDL Cholesterol Arterial Blood Glucose Urine WBC (Auto) Urine Creatinine Urine Total Protein Coronavirus (PCR) Crossmatch 06/12/20 06/12/20 06/12/20 02:46 02:46 05:46 WBC 13.2 H RBC 2.83 L Hgb 8.3 L Hct 24.3 L MCHC RDW 16.6 H Lymph % (Auto) 6.2 L [place] % (Auto) 9.5 H Eos % (Auto) Lymph # 0.8 L [place] # 1.3 H Lymph # (Auto) [place] # (Auto) Seg Neutrophils % 81.9 H Seg Neuts % (Manual) Lymphocytes % (Manual) Seg Neutrophils # 10.9 H Seg Neutrophils # Man Lymphocytes # (Manual) Monocytes % (Manual) Eosinophils % (Manual) Monocytes # (Manual) Eosinophils # (Manual) D-Dimer Heparin Anti-Xa Level ABG pH POC ABG pCO2 POC ABG pO2 ABG pO2 ABG HCO3 ABG O2 Saturation ABG Base Excess ABG Hemoglobin ABG Oxyhemoglobin VBG pH ABG Sodium ABG Potassium ABG Glucose Oxyhemoglobin Sodium Potassium 3.5 L Chloride Carbon Dioxide BUN 77 H Creatinine 1.3 H Glucose POC Glucose 132 H Lactic Acid Calcium 8.3 L Ferritin AST Alkaline Phosphatase Magnesium Lactate Dehydrogenase Total Creatine Kinase CK-MB (CK-2) C-Reactive Protein Total Protein Albumin Troponin T HDL Cholesterol Arterial Blood Glucose Urine WBC (Auto) Urine Creatinine Urine Total Protein Coronavirus (PCR) Crossmatch 06/12/20 06/12/20 06/12/20 09:20 12:16 17:48 WBC RBC Hgb Hct MCHC RDW Lymph % (Auto) [place] % (Auto) Eos % (Auto) Lymph # [place] # Lymph # (Auto) [place] # (Auto) Seg Neutrophils % Seg Neuts % (Manual) Lymphocytes % (Manual) Seg Neutrophils # Seg Neutrophils # Man Lymphocytes # (Manual) Monocytes % (Manual) Eosinophils % (Manual) Monocytes # (Manual) Eosinophils # (Manual) D-Dimer Heparin Anti-Xa Level ABG pH POC ABG pCO2 POC ABG pO2 ABG pO2 91.1 H ABG HCO3 ABG O2 Saturation ABG Base Excess ABG Hemoglobin ABG Oxyhemoglobin VBG pH ABG Sodium ABG Potassium ABG Glucose Oxyhemoglobin 94.8 L Sodium Potassium Chloride Carbon Dioxide BUN Creatinine Glucose POC Glucose 167 H 182 H Lactic Acid Calcium Ferritin AST Alkaline Phosphatase Magnesium Lactate Dehydrogenase Total Creatine Kinase CK-MB (CK-2) C-Reactive Protein Total Protein Albumin Troponin T HDL Cholesterol Arterial Blood Glucose Urine WBC (Auto) Urine Creatinine Urine Total Protein Coronavirus (PCR) Crossmatch 06/13/20 06/13/20 06/13/20 00:08 05:37 09:09 WBC RBC Hgb Hct MCHC RDW Lymph % (Auto) [place] % (Auto) Eos % (Auto) Lymph # [place] # Lymph # (Auto) [place] # (Auto) Seg Neutrophils % Seg Neuts % (Manual) Lymphocytes % (Manual) Seg Neutrophils # Seg Neutrophils # Man Lymphocytes # (Manual) Monocytes % (Manual) Eosinophils % (Manual) Monocytes # (Manual) Eosinophils # (Manual) D-Dimer Heparin Anti-Xa Level 0.86 H ABG pH POC ABG pCO2 POC ABG pO2 ABG pO2 ABG HCO3 ABG O2 Saturation ABG Base Excess ABG Hemoglobin ABG Oxyhemoglobin VBG pH ABG Sodium ABG Potassium ABG Glucose Oxyhemoglobin Sodium Potassium Chloride Carbon Dioxide BUN Creatinine Glucose POC Glucose 142 H 119 H Lactic Acid Calcium Ferritin AST Alkaline Phosphatase Magnesium Lactate Dehydrogenase Total Creatine Kinase CK-MB (CK-2) C-Reactive Protein Total Protein Albumin Troponin T HDL Cholesterol Arterial Blood Glucose Urine WBC (Auto) Urine Creatinine Urine Total Protein Coronavirus (PCR) Crossmatch 06/13/20 06/13/20 06/13/20 12:28 17:55 21:17 WBC RBC Hgb Hct MCHC RDW Lymph % (Auto) [place] % (Auto) Eos % (Auto) Lymph # [place] # Lymph # (Auto) [place] # (Auto) Seg Neutrophils % Seg Neuts % (Manual) Lymphocytes % (Manual) Seg Neutrophils # Seg Neutrophils # Man Lymphocytes # (Manual) Monocytes % (Manual) Eosinophils % (Manual) Monocytes # (Manual) Eosinophils # (Manual) D-Dimer Heparin Anti-Xa Level ABG pH POC ABG pCO2 POC ABG pO2 ABG pO2 ABG HCO3 ABG O2 Saturation ABG Base Excess ABG Hemoglobin ABG Oxyhemoglobin VBG pH ABG Sodium ABG Potassium ABG Glucose Oxyhemoglobin Sodium Potassium Chloride Carbon Dioxide BUN 61 H Creatinine Glucose 131 H POC Glucose 165 H 174 H Lactic Acid Calcium Ferritin AST Alkaline Phosphatase Magnesium Lactate Dehydrogenase Total Creatine Kinase CK-MB (CK-2) C-Reactive Protein Total Protein Albumin Troponin T HDL Cholesterol Arterial Blood Glucose Urine WBC (Auto) Urine Creatinine Urine Total Protein Coronavirus (PCR) Crossmatch 06/13/20 06/13/20 06/14/20 21:17 23:50 05:34 WBC RBC Hgb Hct MCHC RDW Lymph % (Auto) [place] % (Auto) Eos % (Auto) Lymph # [place] # Lymph # (Auto) [place] # (Auto) Seg Neutrophils % Seg Neuts % (Manual) Lymphocytes % (Manual) Seg Neutrophils # Seg Neutrophils # Man Lymphocytes # (Manual) Monocytes % (Manual) Eosinophils % (Manual) Monocytes # (Manual) Eosinophils # (Manual) D-Dimer Heparin Anti-Xa Level 0.72 H ABG pH POC ABG pCO2 POC ABG pO2 ABG pO2 ABG HCO3 ABG O2 Saturation ABG Base Excess ABG Hemoglobin ABG Oxyhemoglobin VBG pH ABG Sodium ABG Potassium ABG Glucose Oxyhemoglobin Sodium 146 H Potassium Chloride 107.6 H Carbon Dioxide BUN 61 H Creatinine 1.3 H Glucose 135 H POC Glucose 146 H Lactic Acid Calcium Ferritin AST Alkaline Phosphatase Magnesium Lactate Dehydrogenase Total Creatine Kinase CK-MB (CK-2) C-Reactive Protein Total Protein Albumin Troponin T HDL Cholesterol Arterial Blood Glucose Urine WBC (Auto) Urine Creatinine Urine Total Protein Coronavirus (PCR) Crossmatch 06/14/20 06/14/20 06/14/20 06:11 09:28 11:30 WBC RBC Hgb Hct MCHC RDW Lymph % (Auto) [place] % (Auto) Eos % (Auto) Lymph # [place] # Lymph # (Auto) [place] # (Auto) Seg Neutrophils % Seg Neuts % (Manual) Lymphocytes % (Manual) Seg Neutrophils # Seg Neutrophils # Man Lymphocytes # (Manual) Monocytes % (Manual) Eosinophils % (Manual) Monocytes # (Manual) Eosinophils # (Manual) D-Dimer Heparin Anti-Xa Level 0.90 H ABG pH POC ABG pCO2 POC ABG pO2 ABG pO2 ABG HCO3 ABG O2 Saturation ABG Base Excess ABG Hemoglobin ABG Oxyhemoglobin VBG pH ABG Sodium ABG Potassium ABG Glucose Oxyhemoglobin Sodium Potassium Chloride Carbon Dioxide BUN Creatinine Glucose POC Glucose 141 H 186 H Lactic Acid Calcium Ferritin AST Alkaline Phosphatase Magnesium Lactate Dehydrogenase Total Creatine Kinase CK-MB (CK-2) C-Reactive Protein Total Protein Albumin Troponin T HDL Cholesterol Arterial Blood Glucose Urine WBC (Auto) Urine Creatinine Urine Total Protein Coronavirus (PCR) Crossmatch 06/14/20 06/14/20 06/14/20 16:07 18:16 23:51 WBC RBC Hgb Hct MCHC RDW Lymph % (Auto) [place] % (Auto) Eos % (Auto) Lymph # [place] # Lymph # (Auto) [place] # (Auto) Seg Neutrophils % Seg Neuts % (Manual) Lymphocytes % (Manual) Seg Neutrophils # Seg Neutrophils # Man Lymphocytes # (Manual) Monocytes % (Manual) Eosinophils % (Manual) Monocytes # (Manual) Eosinophils # (Manual) D-Dimer Heparin Anti-Xa Level 0.82 H ABG pH POC ABG pCO2 POC ABG pO2 ABG pO2 ABG HCO3 ABG O2 Saturation ABG Base Excess ABG Hemoglobin ABG Oxyhemoglobin VBG pH ABG Sodium ABG Potassium ABG Glucose Oxyhemoglobin Sodium Potassium Chloride Carbon Dioxide BUN Creatinine Glucose POC Glucose 106 H 154 H Lactic Acid Calcium Ferritin AST Alkaline Phosphatase Magnesium Lactate Dehydrogenase Total Creatine Kinase CK-MB (CK-2) C-Reactive Protein Total Protein Albumin Troponin T HDL Cholesterol Arterial Blood Glucose Urine WBC (Auto) Urine Creatinine Urine Total Protein Coronavirus (PCR) Crossmatch 06/15/20 06/15/20 06/15/20 04:24 04:24 05:59 WBC RBC 2.75 L Hgb 7.9 L Hct 24.0 L MCHC RDW 16.4 H Lymph % (Auto) 12.9 L [place] % (Auto) 8.7 H Eos % (Auto) 4.6 H Lymph # 1.1 L [place] # Lymph # (Auto) [place] # (Auto) Seg Neutrophils % 73.2 H Seg Neuts % (Manual) Lymphocytes % (Manual) Seg Neutrophils # Seg Neutrophils # Man Lymphocytes # (Manual) Monocytes % (Manual) Eosinophils % (Manual) Monocytes # (Manual) Eosinophils # (Manual) D-Dimer Heparin Anti-Xa Level ABG pH POC ABG pCO2 POC ABG pO2 ABG pO2 ABG HCO3 ABG O2 Saturation ABG Base Excess ABG Hemoglobin ABG Oxyhemoglobin VBG pH ABG Sodium ABG Potassium ABG Glucose Oxyhemoglobin Sodium Potassium 3.4 L Chloride Carbon Dioxide BUN 55 H Creatinine 1.3 H Glucose 142 H POC Glucose 131 H Lactic Acid Calcium Ferritin AST Alkaline Phosphatase Magnesium Lactate Dehydrogenase Total Creatine Kinase CK-MB (CK-2) C-Reactive Protein Total Protein Albumin Troponin T HDL Cholesterol Arterial Blood Glucose Urine WBC (Auto) Urine Creatinine Urine Total Protein Coronavirus (PCR) Crossmatch 06/15/20 06/15/20 06/16/20 12:33 17:07 00:22 WBC RBC Hgb Hct MCHC RDW Lymph % (Auto) [place] % (Auto) Eos % (Auto) Lymph # [place] # Lymph # (Auto) [place] # (Auto) Seg Neutrophils % Seg Neuts % (Manual) Lymphocytes % (Manual) Seg Neutrophils # Seg Neutrophils # Man Lymphocytes # (Manual) Monocytes % (Manual) Eosinophils % (Manual) Monocytes # (Manual) Eosinophils # (Manual) D-Dimer Heparin Anti-Xa Level 0.21 L ABG pH POC ABG pCO2 POC ABG pO2 ABG pO2 ABG HCO3 ABG O2 Saturation ABG Base Excess ABG Hemoglobin ABG Oxyhemoglobin VBG pH ABG Sodium ABG Potassium ABG Glucose Oxyhemoglobin Sodium Potassium Chloride Carbon Dioxide BUN Creatinine Glucose POC Glucose 180 H 185 H Lactic Acid Calcium Ferritin AST Alkaline Phosphatase Magnesium Lactate Dehydrogenase Total Creatine Kinase CK-MB (CK-2) C-Reactive Protein Total Protein Albumin Troponin T HDL Cholesterol Arterial Blood Glucose Urine WBC (Auto) Urine Creatinine Urine Total Protein Coronavirus (PCR) Crossmatch 06/16/20 06/16/20 06/16/20 01:45 08:06 09:15 WBC RBC Hgb Hct MCHC RDW Lymph % (Auto) [place] % (Auto) Eos % (Auto) Lymph # [place] # Lymph # (Auto) [place] # (Auto) Seg Neutrophils % Seg Neuts % (Manual) Lymphocytes % (Manual) Seg Neutrophils # Seg Neutrophils # Man Lymphocytes # (Manual) Monocytes % (Manual) Eosinophils % (Manual) Monocytes # (Manual) Eosinophils # (Manual) D-Dimer Heparin Anti-Xa Level ABG pH POC ABG pCO2 POC ABG pO2 ABG pO2 ABG HCO3 ABG O2 Saturation ABG Base Excess ABG Hemoglobin ABG Oxyhemoglobin VBG pH ABG Sodium ABG Potassium ABG Glucose Oxyhemoglobin Sodium Potassium Chloride Carbon Dioxide BUN 49 H Creatinine Glucose 154 H POC Glucose 140 H 171 H Lactic Acid Calcium Ferritin AST Alkaline Phosphatase Magnesium Lactate Dehydrogenase Total Creatine Kinase CK-MB (CK-2) C-Reactive Protein Total Protein Albumin Troponin T HDL Cholesterol Arterial Blood Glucose Urine WBC (Auto) Urine Creatinine Urine Total Protein Coronavirus (PCR) Crossmatch 06/16/20 06/16/20 06/16/20 10:46 12:33 17:54 WBC RBC Hgb Hct MCHC RDW Lymph % (Auto) [place] % (Auto) Eos % (Auto) Lymph # [place] # Lymph # (Auto) [place] # (Auto) Seg Neutrophils % Seg Neuts % (Manual) Lymphocytes % (Manual) Seg Neutrophils # Seg Neutrophils # Man Lymphocytes # (Manual) Monocytes % (Manual) Eosinophils % (Manual) Monocytes # (Manual) Eosinophils # (Manual) D-Dimer Heparin Anti-Xa Level 0.12 L ABG pH POC ABG pCO2 POC ABG pO2 ABG pO2 ABG HCO3 ABG O2 Saturation ABG Base Excess ABG Hemoglobin ABG Oxyhemoglobin VBG pH ABG Sodium ABG Potassium ABG Glucose Oxyhemoglobin Sodium Potassium Chloride Carbon Dioxide BUN Creatinine Glucose POC Glucose 166 H 151 H Lactic Acid Calcium Ferritin AST Alkaline Phosphatase Magnesium Lactate Dehydrogenase Total Creatine Kinase CK-MB (CK-2) C-Reactive Protein Total Protein Albumin Troponin T HDL Cholesterol Arterial Blood Glucose Urine WBC (Auto) Urine Creatinine Urine Total Protein Coronavirus (PCR) Crossmatch 06/16/20 06/17/20 06/17/20 18:47 00:00 02:19 WBC RBC Hgb Hct MCHC RDW Lymph % (Auto) [place] % (Auto) Eos % (Auto) Lymph # [place] # Lymph # (Auto) [place] # (Auto) Seg Neutrophils % Seg Neuts % (Manual) Lymphocytes % (Manual) Seg Neutrophils # Seg Neutrophils # Man Lymphocytes # (Manual) Monocytes % (Manual) Eosinophils % (Manual) Monocytes # (Manual) Eosinophils # (Manual) D-Dimer Heparin Anti-Xa Level 0.73 H 0.77 H ABG pH POC ABG pCO2 POC ABG pO2 ABG pO2 ABG HCO3 ABG O2 Saturation ABG Base Excess ABG Hemoglobin ABG Oxyhemoglobin VBG pH ABG Sodium ABG Potassium ABG Glucose Oxyhemoglobin Sodium Potassium Chloride Carbon Dioxide BUN Creatinine Glucose POC Glucose 139 H Lactic Acid Calcium Ferritin AST Alkaline Phosphatase Magnesium Lactate Dehydrogenase Total Creatine Kinase CK-MB (CK-2) C-Reactive Protein Total Protein Albumin Troponin T HDL Cholesterol Arterial Blood Glucose Urine WBC (Auto) Urine Creatinine Urine Total Protein Coronavirus (PCR) Crossmatch 06/17/20 06/17/20 06/17/20 06:07 11:42 16:43 WBC RBC Hgb Hct MCHC RDW Lymph % (Auto) [place] % (Auto) Eos % (Auto) Lymph # [place] # Lymph # (Auto) [place] # (Auto) Seg Neutrophils % Seg Neuts % (Manual) Lymphocytes % (Manual) Seg Neutrophils # Seg Neutrophils # Man Lymphocytes # (Manual) Monocytes % (Manual) Eosinophils % (Manual) Monocytes # (Manual) Eosinophils # (Manual) D-Dimer Heparin Anti-Xa Level 0.73 H ABG pH POC ABG pCO2 POC ABG pO2 ABG pO2 ABG HCO3 ABG O2 Saturation ABG Base Excess ABG Hemoglobin ABG Oxyhemoglobin VBG pH ABG Sodium ABG Potassium ABG Glucose Oxyhemoglobin Sodium Potassium Chloride Carbon Dioxide BUN Creatinine Glucose POC Glucose 169 H 169 H Lactic Acid Calcium Ferritin AST Alkaline Phosphatase Magnesium Lactate Dehydrogenase Total Creatine Kinase CK-MB (CK-2) C-Reactive Protein Total Protein Albumin Troponin T HDL Cholesterol Arterial Blood Glucose Urine WBC (Auto) Urine Creatinine Urine Total Protein Coronavirus (PCR) Crossmatch 09/09/20 09/09/20 09/09/20 18:18 23:08 23:16 WBC RBC Hgb Hct MCHC RDW Lymph % (Auto) [place] % (Auto) Eos % (Auto) Lymph # [place] # Lymph # (Auto) [place] # (Auto) Seg Neutrophils % Seg Neuts % (Manual) Lymphocytes % (Manual) Seg Neutrophils # Seg Neutrophils # Man Lymphocytes # (Manual) Monocytes % (Manual) Eosinophils % (Manual) Monocytes # (Manual) Eosinophils # (Manual) D-Dimer Heparin Anti-Xa Level 0.71 H ABG pH POC ABG pCO2 POC ABG pO2 ABG pO2 ABG HCO3 ABG O2 Saturation ABG Base Excess ABG Hemoglobin ABG Oxyhemoglobin VBG pH ABG Sodium ABG Potassium ABG Glucose Oxyhemoglobin Sodium Potassium Chloride Carbon Dioxide BUN Creatinine Glucose POC Glucose 159 H 134 H Lactic Acid Calcium Ferritin AST Alkaline Phosphatase Magnesium Lactate Dehydrogenase Total Creatine Kinase CK-MB (CK-2) C-Reactive Protein Total Protein Albumin Troponin T HDL Cholesterol Arterial Blood Glucose Urine WBC (Auto) Urine Creatinine Urine Total Protein Coronavirus (PCR) Crossmatch 06/18/20 06/18/20 06/18/20 04:42 05:52 11:50 WBC RBC Hgb Hct MCHC RDW Lymph % (Auto) [place] % (Auto) Eos % (Auto) Lymph # [place] # Lymph # (Auto) [place] # (Auto) Seg Neutrophils % Seg Neuts % (Manual) Lymphocytes % (Manual) Seg Neutrophils # Seg Neutrophils # Man Lymphocytes # (Manual) Monocytes % (Manual) Eosinophils % (Manual) Monocytes # (Manual) Eosinophils # (Manual) D-Dimer Heparin Anti-Xa Level ABG pH POC ABG pCO2 POC ABG pO2 ABG pO2 ABG HCO3 ABG O2 Saturation ABG Base Excess ABG Hemoglobin ABG Oxyhemoglobin VBG pH ABG Sodium ABG Potassium ABG Glucose Oxyhemoglobin Sodium Potassium Chloride Carbon Dioxide BUN 44 H Creatinine Glucose 115 H POC Glucose 171 H 167 H Lactic Acid Calcium Ferritin AST Alkaline Phosphatase Magnesium Lactate Dehydrogenase Total Creatine Kinase CK-MB (CK-2) C-Reactive Protein Total Protein Albumin Troponin T HDL Cholesterol Arterial Blood Glucose Urine WBC (Auto) Urine Creatinine Urine Total Protein Coronavirus (PCR) Crossmatch 06/18/20 06/19/20 06/19/20 23:46 05:48 07:52 WBC RBC Hgb Hct MCHC RDW Lymph % (Auto) [place] % (Auto) Eos % (Auto) Lymph # [place] # Lymph # (Auto) [place] # (Auto) Seg Neutrophils % Seg Neuts % (Manual) Lymphocytes % (Manual) Seg Neutrophils # Seg Neutrophils # Man Lymphocytes # (Manual) Monocytes % (Manual) Eosinophils % (Manual) Monocytes # (Manual) Eosinophils # (Manual) D-Dimer Heparin Anti-Xa Level ABG pH POC ABG pCO2 POC ABG pO2 ABG pO2 ABG HCO3 ABG O2 Saturation ABG Base Excess ABG Hemoglobin ABG Oxyhemoglobin VBG pH ABG Sodium ABG Potassium ABG Glucose Oxyhemoglobin Sodium Potassium Chloride Carbon Dioxide BUN Creatinine Glucose POC Glucose 130 H 207 H 175 H Lactic Acid Calcium Ferritin AST Alkaline Phosphatase Magnesium Lactate Dehydrogenase Total Creatine Kinase CK-MB (CK-2) C-Reactive Protein Total Protein Albumin Troponin T HDL Cholesterol Arterial Blood Glucose Urine WBC (Auto) Urine Creatinine Urine Total Protein Coronavirus (PCR) Crossmatch 06/19/20 06/19/20 06/20/20 11:42 22:54 05:17 WBC RBC Hgb Hct MCHC RDW Lymph % (Auto) [place] % (Auto) Eos % (Auto) Lymph # [place] # Lymph # (Auto) [place] # (Auto) Seg Neutrophils % Seg Neuts % (Manual) Lymphocytes % (Manual) Seg Neutrophils # Seg Neutrophils # Man Lymphocytes # (Manual) Monocytes % (Manual) Eosinophils % (Manual) Monocytes # (Manual) Eosinophils # (Manual) D-Dimer Heparin Anti-Xa Level ABG pH POC ABG pCO2 POC ABG pO2 ABG pO2 ABG HCO3 ABG O2 Saturation ABG Base Excess ABG Hemoglobin ABG Oxyhemoglobin VBG pH ABG Sodium ABG Potassium ABG Glucose Oxyhemoglobin Sodium Potassium Chloride Carbon Dioxide BUN Creatinine Glucose POC Glucose 166 H 135 H 218 H Lactic Acid Calcium Ferritin AST Alkaline Phosphatase Magnesium Lactate Dehydrogenase Total Creatine Kinase CK-MB (CK-2) C-Reactive Protein Total Protein Albumin Troponin T HDL Cholesterol Arterial Blood Glucose Urine WBC (Auto) Urine Creatinine Urine Total Protein Coronavirus (PCR) Crossmatch 06/20/20 06/20/20 06/20/20 12:04 16:25 16:35 WBC RBC Hgb Hct MCHC RDW Lymph % (Auto) [place] % (Auto) Eos % (Auto) Lymph # [place] # Lymph # (Auto) [place] # (Auto) Seg Neutrophils % Seg Neuts % (Manual) Lymphocytes % (Manual) Seg Neutrophils # Seg Neutrophils # Man Lymphocytes # (Manual) Monocytes % (Manual) Eosinophils % (Manual) Monocytes # (Manual) Eosinophils # (Manual) D-Dimer Heparin Anti-Xa Level ABG pH POC ABG pCO2 POC ABG pO2 ABG pO2 59.6 L ABG HCO3 28.7 H ABG O2 Saturation 93.5 L ABG Base Excess 3.4 H ABG Hemoglobin 7.2 L ABG Oxyhemoglobin VBG pH ABG Sodium ABG Potassium ABG Glucose Oxyhemoglobin 91.3 L Sodium Potassium Chloride Carbon Dioxide BUN Creatinine Glucose POC Glucose 194 H 137 H Lactic Acid Calcium Ferritin AST Alkaline Phosphatase Magnesium Lactate Dehydrogenase Total Creatine Kinase CK-MB (CK-2) C-Reactive Protein Total Protein Albumin Troponin T HDL Cholesterol Arterial Blood Glucose Urine WBC (Auto) Urine Creatinine Urine Total Protein Coronavirus (PCR) Crossmatch 06/20/20 06/21/20 06/21/20 23:59 06:25 12:01 WBC RBC Hgb Hct MCHC RDW Lymph % (Auto) [place] % (Auto) Eos % (Auto) Lymph # [place] # Lymph # (Auto) [place] # (Auto) Seg Neutrophils % Seg Neuts % (Manual) Lymphocytes % (Manual) Seg Neutrophils # Seg Neutrophils # Man Lymphocytes # (Manual) Monocytes % (Manual) Eosinophils % (Manual) Monocytes # (Manual) Eosinophils # (Manual) D-Dimer Heparin Anti-Xa Level ABG pH POC ABG pCO2 POC ABG pO2 ABG pO2 ABG HCO3 ABG O2 Saturation ABG Base Excess ABG Hemoglobin ABG Oxyhemoglobin VBG pH ABG Sodium ABG Potassium ABG Glucose Oxyhemoglobin Sodium Potassium Chloride Carbon Dioxide BUN Creatinine Glucose POC Glucose 156 H 177 H 195 H Lactic Acid Calcium Ferritin AST Alkaline Phosphatase Magnesium Lactate Dehydrogenase Total Creatine Kinase CK-MB (CK-2) C-Reactive Protein Total Protein Albumin Troponin T HDL Cholesterol Arterial Blood Glucose Urine WBC (Auto) Urine Creatinine Urine Total Protein Coronavirus (PCR) Crossmatch 06/21/20 06/21/20 06/22/20 17:04 21:51 05:06 WBC RBC Hgb Hct MCHC RDW Lymph % (Auto) [place] % (Auto) Eos % (Auto) Lymph # [place] # Lymph # (Auto) [place] # (Auto) Seg Neutrophils % Seg Neuts % (Manual) Lymphocytes % (Manual) Seg Neutrophils # Seg Neutrophils # Man Lymphocytes # (Manual) Monocytes % (Manual) Eosinophils % (Manual) Monocytes # (Manual) Eosinophils # (Manual) D-Dimer Heparin Anti-Xa Level ABG pH POC ABG pCO2 POC ABG pO2 ABG pO2 ABG HCO3 ABG O2 Saturation ABG Base Excess ABG Hemoglobin ABG Oxyhemoglobin VBG pH ABG Sodium ABG Potassium ABG Glucose Oxyhemoglobin Sodium Potassium Chloride Carbon Dioxide BUN Creatinine Glucose POC Glucose 156 H 154 H 167 H Lactic Acid Calcium Ferritin AST Alkaline Phosphatase Magnesium Lactate Dehydrogenase Total Creatine Kinase CK-MB (CK-2) C-Reactive Protein Total Protein Albumin Troponin T HDL Cholesterol Arterial Blood Glucose Urine WBC (Auto) Urine Creatinine Urine Total Protein Coronavirus (PCR) Crossmatch 06/22/20 06/22/20 06/22/20 11:20 15:27 16:58 WBC RBC Hgb Hct MCHC RDW Lymph % (Auto) [place] % (Auto) Eos % (Auto) Lymph # [place] # Lymph # (Auto) [place] # (Auto) Seg Neutrophils % Seg Neuts % (Manual) Lymphocytes % (Manual) Seg Neutrophils # Seg Neutrophils # Man Lymphocytes # (Manual) Monocytes % (Manual) Eosinophils % (Manual) Monocytes # (Manual) Eosinophils # (Manual) D-Dimer Heparin Anti-Xa Level ABG pH 7.206 L POC ABG pCO2 79.9 H POC ABG pO2 ABG pO2 ABG HCO3 ABG O2 Saturation ABG Base Excess ABG Hemoglobin 8.3 L ABG Oxyhemoglobin VBG pH ABG Sodium ABG Potassium ABG Glucose Oxyhemoglobin Sodium Potassium Chloride Carbon Dioxide BUN Creatinine Glucose POC Glucose 181 H 230 H Lactic Acid Calcium Ferritin AST Alkaline Phosphatase Magnesium Lactate Dehydrogenase Total Creatine Kinase CK-MB (CK-2) C-Reactive Protein Total Protein Albumin Troponin T HDL Cholesterol Arterial Blood Glucose Urine WBC (Auto) Urine Creatinine Urine Total Protein Coronavirus (PCR) Crossmatch 06/22/20 06/23/20 06/23/20 22:26 05:49 05:49 WBC RBC 2.58 L Hgb 7.4 L Hct 23.2 L MCHC RDW 17.0 H Lymph % (Auto) [place] % (Auto) 11.2 H Eos % (Auto) Lymph # 1.0 L [place] # Lymph # (Auto) [place] # (Auto) Seg Neutrophils % Seg Neuts % (Manual) Lymphocytes % (Manual) Seg Neutrophils # Seg Neutrophils # Man Lymphocytes # (Manual) Monocytes % (Manual) Eosinophils % (Manual) Monocytes # (Manual) Eosinophils # (Manual) D-Dimer Heparin Anti-Xa Level ABG pH POC ABG pCO2 POC ABG pO2 ABG pO2 ABG HCO3 ABG O2 Saturation ABG Base Excess ABG Hemoglobin ABG Oxyhemoglobin VBG pH ABG Sodium ABG Potassium ABG Glucose Oxyhemoglobin Sodium Potassium Chloride Carbon Dioxide BUN 68 H Creatinine 2.4 H Glucose 198 H POC Glucose 195 H Lactic Acid Calcium Ferritin AST Alkaline Phosphatase Magnesium Lactate Dehydrogenase Total Creatine Kinase CK-MB (CK-2) C-Reactive Protein Total Protein Albumin Troponin T HDL Cholesterol Arterial Blood Glucose Urine WBC (Auto) Urine Creatinine Urine Total Protein Coronavirus (PCR) Crossmatch 06/23/20 06/23/20 06/23/20 05:50 12:29 12:34 WBC RBC Hgb Hct MCHC RDW Lymph % (Auto) [place] % (Auto) Eos % (Auto) Lymph # [place] # Lymph # (Auto) [place] # (Auto) Seg Neutrophils % Seg Neuts % (Manual) Lymphocytes % (Manual) Seg Neutrophils # Seg Neutrophils # Man Lymphocytes # (Manual) Monocytes % (Manual) Eosinophils % (Manual) Monocytes # (Manual) Eosinophils # (Manual) D-Dimer Heparin Anti-Xa Level ABG pH POC ABG pCO2 54.7 H POC ABG pO2 68.8 L ABG pO2 ABG HCO3 ABG O2 Saturation ABG Base Excess ABG Hemoglobin 9.8 L ABG Oxyhemoglobin 92.6 L VBG pH ABG Sodium ABG Potassium ABG Glucose Oxyhemoglobin Sodium Potassium Chloride Carbon Dioxide BUN Creatinine Glucose POC Glucose 202 H 218 H Lactic Acid Calcium Ferritin AST Alkaline Phosphatase Magnesium Lactate Dehydrogenase Total Creatine Kinase CK-MB (CK-2) C-Reactive Protein Total Protein Albumin Troponin T HDL Cholesterol Arterial Blood Glucose Urine WBC (Auto) Urine Creatinine Urine Total Protein Coronavirus (PCR) Crossmatch 06/23/20 06/23/20 06/24/20 16:02 22:22 01:06 WBC RBC Hgb Hct MCHC RDW Lymph % (Auto) [place] % (Auto) Eos % (Auto) Lymph # [place] # Lymph # (Auto) [place] # (Auto) Seg Neutrophils % Seg Neuts % (Manual) Lymphocytes % (Manual) Seg Neutrophils # Seg Neutrophils # Man Lymphocytes # (Manual) Monocytes % (Manual) Eosinophils % (Manual) Monocytes # (Manual) Eosinophils # (Manual) D-Dimer Heparin Anti-Xa Level ABG pH POC ABG pCO2 POC ABG pO2 ABG pO2 ABG HCO3 ABG O2 Saturation ABG Base Excess ABG Hemoglobin ABG Oxyhemoglobin VBG pH ABG Sodium ABG Potassium ABG Glucose Oxyhemoglobin Sodium Potassium Chloride Carbon Dioxide BUN Creatinine Glucose POC Glucose 190 H 166 H 171 H Lactic Acid Calcium Ferritin AST Alkaline Phosphatase Magnesium Lactate Dehydrogenase Total Creatine Kinase CK-MB (CK-2) C-Reactive Protein Total Protein Albumin Troponin T HDL Cholesterol Arterial Blood Glucose Urine WBC (Auto) Urine Creatinine Urine Total Protein Coronavirus (PCR) Crossmatch 06/24/20 06/24/20 06/24/20 04:48 05:35 11:48 WBC RBC Hgb Hct MCHC RDW Lymph % (Auto) [place] % (Auto) Eos % (Auto) Lymph # [place] # Lymph # (Auto) [place] # (Auto) Seg Neutrophils % Seg Neuts % (Manual) Lymphocytes % (Manual) Seg Neutrophils # Seg Neutrophils # Man Lymphocytes # (Manual) Monocytes % (Manual) Eosinophils % (Manual) Monocytes # (Manual) Eosinophils # (Manual) D-Dimer Heparin Anti-Xa Level ABG pH POC ABG pCO2 POC ABG pO2 ABG pO2 ABG HCO3 ABG O2 Saturation ABG Base Excess ABG Hemoglobin ABG Oxyhemoglobin VBG pH ABG Sodium ABG Potassium ABG Glucose Oxyhemoglobin Sodium Potassium Chloride Carbon Dioxide BUN 75 H Creatinine 2.6 H Glucose 179 H POC Glucose 172 H 153 H Lactic Acid Calcium Ferritin AST Alkaline Phosphatase Magnesium Lactate Dehydrogenase Total Creatine Kinase CK-MB (CK-2) C-Reactive Protein Total Protein Albumin Troponin T HDL Cholesterol Arterial Blood Glucose Urine WBC (Auto) Urine Creatinine Urine Total Protein Coronavirus (PCR) Crossmatch 06/24/20 06/24/20 06/25/20 16:38 21:52 12:00 WBC RBC Hgb Hct MCHC RDW Lymph % (Auto) [place] % (Auto) Eos % (Auto) Lymph # [place] # Lymph # (Auto) [place] # (Auto) Seg Neutrophils % Seg Neuts % (Manual) Lymphocytes % (Manual) Seg Neutrophils # Seg Neutrophils # Man Lymphocytes # (Manual) Monocytes % (Manual) Eosinophils % (Manual) Monocytes # (Manual) Eosinophils # (Manual) D-Dimer Heparin Anti-Xa Level ABG pH POC ABG pCO2 POC ABG pO2 ABG pO2 ABG HCO3 ABG O2 Saturation ABG Base Excess ABG Hemoglobin ABG Oxyhemoglobin VBG pH ABG Sodium ABG Potassium ABG Glucose Oxyhemoglobin Sodium Potassium Chloride Carbon Dioxide BUN Creatinine Glucose POC Glucose 123 H 115 H 203 H Lactic Acid Calcium Ferritin AST Alkaline Phosphatase Magnesium Lactate Dehydrogenase Total Creatine Kinase CK-MB (CK-2) C-Reactive Protein Total Protein Albumin Troponin T HDL Cholesterol Arterial Blood Glucose Urine WBC (Auto) Urine Creatinine Urine Total Protein Coronavirus (PCR) Crossmatch 06/25/20 06/25/20 06/25/20 15:43 16:37 23:02 WBC RBC Hgb Hct MCHC RDW Lymph % (Auto) [place] % (Auto) Eos % (Auto) Lymph # [place] # Lymph # (Auto) [place] # (Auto) Seg Neutrophils % Seg Neuts % (Manual) Lymphocytes % (Manual) Seg Neutrophils # Seg Neutrophils # Man Lymphocytes # (Manual) Monocytes % (Manual) Eosinophils % (Manual) Monocytes # (Manual) Eosinophils # (Manual) D-Dimer Heparin Anti-Xa Level ABG pH POC ABG pCO2 POC ABG pO2 ABG pO2 ABG HCO3 ABG O2 Saturation ABG Base Excess ABG Hemoglobin ABG Oxyhemoglobin VBG pH ABG Sodium ABG Potassium ABG Glucose Oxyhemoglobin Sodium Potassium Chloride Carbon Dioxide BUN 71 H Creatinine 1.8 H Glucose 170 H POC Glucose 191 H 126 H Lactic Acid Calcium 8.2 L Ferritin AST Alkaline Phosphatase Magnesium Lactate Dehydrogenase Total Creatine Kinase CK-MB (CK-2) C-Reactive Protein Total Protein Albumin Troponin T HDL Cholesterol Arterial Blood Glucose Urine WBC (Auto) Urine Creatinine Urine Total Protein Coronavirus (PCR) Crossmatch 06/26/20 06/26/20 06/26/20 06:34 06:34 09:27 WBC RBC 2.41 L Hgb 6.9 L Hct 21.5 L MCHC RDW 16.7 H Lymph % (Auto) 10.9 L [place] % (Auto) 9.6 H Eos % (Auto) Lymph # 0.7 L [place] # Lymph # (Auto) [place] # (Auto) Seg Neutrophils % 75.4 H Seg Neuts % (Manual) Lymphocytes % (Manual) Seg Neutrophils # Seg Neutrophils # Man Lymphocytes # (Manual) Monocytes % (Manual) Eosinophils % (Manual) Monocytes # (Manual) Eosinophils # (Manual) D-Dimer Heparin Anti-Xa Level ABG pH POC ABG pCO2 POC ABG pO2 ABG pO2 ABG HCO3 ABG O2 Saturation ABG Base Excess ABG Hemoglobin ABG Oxyhemoglobin VBG pH ABG Sodium ABG Potassium ABG Glucose Oxyhemoglobin Sodium Potassium Chloride Carbon Dioxide BUN 77 H Creatinine 1.9 H Glucose 190 H POC Glucose Lactic Acid Calcium Ferritin AST Alkaline Phosphatase Magnesium Lactate Dehydrogenase Total Creatine Kinase CK-MB (CK-2) C-Reactive Protein Total Protein Albumin Troponin T HDL Cholesterol Arterial Blood Glucose Urine WBC (Auto) Urine Creatinine Urine Total Protein Coronavirus (PCR) Crossmatch See Detail 06/26/20 06/26/20 06/26/20 12:15 16:28 17:28 WBC RBC Hgb Hct MCHC RDW Lymph % (Auto) [place] % (Auto) Eos % (Auto) Lymph # [place] # Lymph # (Auto) [place] # (Auto) Seg Neutrophils % Seg Neuts % (Manual) Lymphocytes % (Manual) Seg Neutrophils # Seg Neutrophils # Man Lymphocytes # (Manual) Monocytes % (Manual) Eosinophils % (Manual) Monocytes # (Manual) Eosinophils # (Manual) D-Dimer Heparin Anti-Xa Level ABG pH POC ABG pCO2 POC ABG pO2 ABG pO2 ABG HCO3 ABG O2 Saturation ABG Base Excess ABG Hemoglobin ABG Oxyhemoglobin VBG pH ABG Sodium ABG Potassium ABG Glucose Oxyhemoglobin Sodium Potassium Chloride Carbon Dioxide BUN Creatinine Glucose POC Glucose 187 H 149 H 189 H Lactic Acid Calcium Ferritin AST Alkaline Phosphatase Magnesium Lactate Dehydrogenase Total Creatine Kinase CK-MB (CK-2) C-Reactive Protein Total Protein Albumin Troponin T HDL Cholesterol Arterial Blood Glucose Urine WBC (Auto) Urine Creatinine Urine Total Protein Coronavirus (PCR) Crossmatch 06/26/20 06/26/20 06/26/20 18:30 18:30 18:30 WBC RBC 2.87 L Hgb 8.2 L Hct 25.9 L MCHC RDW 17.8 H Lymph % (Auto) [place] % (Auto) Eos % (Auto) Lymph # [place] # Lymph # (Auto) [place] # (Auto) Seg Neutrophils % Seg Neuts % (Manual) 83.0 H Lymphocytes % (Manual) 8.0 L Seg Neutrophils # Seg Neutrophils # Man Lymphocytes # (Manual) 0.6 L Monocytes % (Manual) Eosinophils % (Manual) Monocytes # (Manual) Eosinophils # (Manual) D-Dimer Heparin Anti-Xa Level ABG pH POC ABG pCO2 POC ABG pO2 ABG pO2 ABG HCO3 ABG O2 Saturation ABG Base Excess ABG Hemoglobin ABG Oxyhemoglobin VBG pH ABG Sodium ABG Potassium ABG Glucose Oxyhemoglobin Sodium Potassium Chloride Carbon Dioxide BUN 80 H Creatinine 2.1 H Glucose 260 H POC Glucose Lactic Acid 4.30 H* Calcium 8.3 L Ferritin AST Alkaline Phosphatase Magnesium Lactate Dehydrogenase Total Creatine Kinase CK-MB (CK-2) C-Reactive Protein Total Protein Albumin Troponin T HDL Cholesterol Arterial Blood Glucose Urine WBC (Auto) Urine Creatinine Urine Total Protein Coronavirus (PCR) Crossmatch 06/26/20 06/27/20 06/27/20 18:50 01:00 04:29 WBC RBC Hgb Hct MCHC RDW Lymph % (Auto) [place] % (Auto) Eos % (Auto) Lymph # [place] # Lymph # (Auto) [place] # (Auto) Seg Neutrophils % Seg Neuts % (Manual) Lymphocytes % (Manual) Seg Neutrophils # Seg Neutrophils # Man Lymphocytes # (Manual) Monocytes % (Manual) Eosinophils % (Manual) Monocytes # (Manual) Eosinophils # (Manual) D-Dimer Heparin Anti-Xa Level ABG pH 7.296 L POC ABG pCO2 POC ABG pO2 ABG pO2 116.5 H 200.5 H ABG HCO3 28.4 H ABG O2 Saturation 99.3 H ABG Base Excess 3.7 H ABG Hemoglobin 5.6 L ABG Oxyhemoglobin VBG pH ABG Sodium ABG Potassium ABG Glucose Oxyhemoglobin Sodium Potassium Chloride Carbon Dioxide BUN Creatinine Glucose POC Glucose 123 H Lactic Acid Calcium Ferritin AST Alkaline Phosphatase Magnesium Lactate Dehydrogenase Total Creatine Kinase CK-MB (CK-2) C-Reactive Protein Total Protein Albumin Troponin T HDL Cholesterol Arterial Blood Glucose Urine WBC (Auto) Urine Creatinine Urine Total Protein Coronavirus (PCR) Crossmatch 06/27/20 06/27/20 06/27/20 05:00 05:00 05:00 WBC RBC 2.75 L Hgb 7.9 L Hct 24.3 L MCHC RDW 17.1 H Lymph % (Auto) 8.5 L [place] % (Auto) 12.6 H Eos % (Auto) Lymph # 0.7 L [place] # 1.0 H Lymph # (Auto) [place] # (Auto) Seg Neutrophils % 77.5 H Seg Neuts % (Manual) Lymphocytes % (Manual) Seg Neutrophils # Seg Neutrophils # Man Lymphocytes # (Manual) Monocytes % (Manual) Eosinophils % (Manual) Monocytes # (Manual) Eosinophils # (Manual) D-Dimer Heparin Anti-Xa Level ABG pH POC ABG pCO2 POC ABG pO2 ABG pO2 ABG HCO3 ABG O2 Saturation ABG Base Excess ABG Hemoglobin ABG Oxyhemoglobin VBG pH ABG Sodium ABG Potassium ABG Glucose Oxyhemoglobin Sodium Potassium Chloride Carbon Dioxide BUN 80 H Creatinine 2.0 H Glucose 129 H POC Glucose Lactic Acid 0.60 L Calcium 7.9 L Ferritin AST Alkaline Phosphatase Magnesium Lactate Dehydrogenase Total Creatine Kinase CK-MB (CK-2) C-Reactive Protein Total Protein Albumin Troponin T HDL Cholesterol Arterial Blood Glucose Urine WBC (Auto) Urine Creatinine Urine Total Protein Coronavirus (PCR) Crossmatch 06/27/20 06/27/20 06/27/20 05:23 13:46 17:25 WBC RBC Hgb Hct MCHC RDW Lymph % (Auto) [place] % (Auto) Eos % (Auto) Lymph # [place] # Lymph # (Auto) [place] # (Auto) Seg Neutrophils % Seg Neuts % (Manual) Lymphocytes % (Manual) Seg Neutrophils # Seg Neutrophils # Man Lymphocytes # (Manual) Monocytes % (Manual) Eosinophils % (Manual) Monocytes # (Manual) Eosinophils # (Manual) D-Dimer Heparin Anti-Xa Level ABG pH POC ABG pCO2 POC ABG pO2 ABG pO2 ABG HCO3 ABG O2 Saturation ABG Base Excess ABG Hemoglobin ABG Oxyhemoglobin VBG pH ABG Sodium ABG Potassium ABG Glucose Oxyhemoglobin Sodium Potassium Chloride Carbon Dioxide BUN Creatinine Glucose POC Glucose 109 H 158 H 162 H Lactic Acid Calcium Ferritin AST Alkaline Phosphatase Magnesium Lactate Dehydrogenase Total Creatine Kinase CK-MB (CK-2) C-Reactive Protein Total Protein Albumin Troponin T HDL Cholesterol Arterial Blood Glucose Urine WBC (Auto) Urine Creatinine Urine Total Protein Coronavirus (PCR) Crossmatch 06/27/20 06/27/20 06/28/20 18:43 23:46 04:05 WBC RBC Hgb 7.7 L Hct 22.1 L MCHC RDW Lymph % (Auto) [place] % (Auto) Eos % (Auto) Lymph # [place] # Lymph # (Auto) [place] # (Auto) Seg Neutrophils % Seg Neuts % (Manual) Lymphocytes % (Manual) Seg Neutrophils # Seg Neutrophils # Man Lymphocytes # (Manual) Monocytes % (Manual) Eosinophils % (Manual) Monocytes # (Manual) Eosinophils # (Manual) D-Dimer Heparin Anti-Xa Level ABG pH POC ABG pCO2 POC ABG pO2 ABG pO2 102.7 H ABG HCO3 28.7 H ABG O2 Saturation ABG Base Excess 3.7 H ABG Hemoglobin ABG Oxyhemoglobin VBG pH ABG Sodium ABG Potassium ABG Glucose Oxyhemoglobin Sodium Potassium Chloride Carbon Dioxide BUN Creatinine Glucose POC Glucose 142 H Lactic Acid Calcium Ferritin AST Alkaline Phosphatase Magnesium Lactate Dehydrogenase Total Creatine Kinase CK-MB (CK-2) C-Reactive Protein Total Protein Albumin Troponin T HDL Cholesterol Arterial Blood Glucose Urine WBC (Auto) Urine Creatinine Urine Total Protein Coronavirus (PCR) Crossmatch 06/28/20 06/28/20 06/28/20 09:47 09:47 12:02 WBC RBC 2.53 L Hgb 7.4 L Hct 22.2 L MCHC RDW 16.8 H Lymph % (Auto) [place] % (Auto) 13.5 H Eos % (Auto) Lymph # 1.1 L [place] # 1.0 H Lymph # (Auto) [place] # (Auto) Seg Neutrophils % Seg Neuts % (Manual) Lymphocytes % (Manual) Seg Neutrophils # Seg Neutrophils # Man Lymphocytes # (Manual) Monocytes % (Manual) Eosinophils % (Manual) Monocytes # (Manual) Eosinophils # (Manual) D-Dimer Heparin Anti-Xa Level ABG pH POC ABG pCO2 POC ABG pO2 ABG pO2 ABG HCO3 ABG O2 Saturation ABG Base Excess ABG Hemoglobin ABG Oxyhemoglobin VBG pH ABG Sodium ABG Potassium ABG Glucose Oxyhemoglobin Sodium Potassium Chloride Carbon Dioxide BUN 80 H Creatinine 1.5 H Glucose 139 H POC Glucose 169 H Lactic Acid Calcium 7.9 L Ferritin AST Alkaline Phosphatase Magnesium Lactate Dehydrogenase Total Creatine Kinase CK-MB (CK-2) C-Reactive Protein Total Protein 5.0 L Albumin 2.1 L Troponin T HDL Cholesterol Arterial Blood Glucose Urine WBC (Auto) Urine Creatinine Urine Total Protein Coronavirus (PCR) Crossmatch 06/28/20 06/28/20 06/28/20 12:30 12:30 17:24 WBC RBC 2.38 L Hgb 7.3 L Hct 20.9 L MCHC 35 H RDW 16.7 H Lymph % (Auto) [place] % (Auto) Eos % (Auto) Lymph # [place] # Lymph # (Auto) [place] # (Auto) Seg Neutrophils % Seg Neuts % (Manual) Lymphocytes % (Manual) Seg Neutrophils # Seg Neutrophils # Man Lymphocytes # (Manual) Monocytes % (Manual) Eosinophils % (Manual) Monocytes # (Manual) Eosinophils # (Manual) D-Dimer Heparin Anti-Xa Level ABG pH POC ABG pCO2 POC ABG pO2 ABG pO2 ABG HCO3 ABG O2 Saturation ABG Base Excess ABG Hemoglobin ABG Oxyhemoglobin VBG pH ABG Sodium ABG Potassium ABG Glucose Oxyhemoglobin Sodium Potassium Chloride Carbon Dioxide BUN 74 H Creatinine 1.5 H Glucose 143 H POC Glucose 173 H Lactic Acid Calcium 7.5 L Ferritin AST Alkaline Phosphatase Magnesium Lactate Dehydrogenase Total Creatine Kinase CK-MB (CK-2) C-Reactive Protein Total Protein Albumin Troponin T HDL Cholesterol Arterial Blood Glucose Urine WBC (Auto) Urine Creatinine Urine Total Protein Coronavirus (PCR) Crossmatch 06/29/20 06/29/20 06/29/20 00:02 03:54 04:38 WBC RBC 2.55 L Hgb 7.3 L Hct 22.4 L MCHC RDW 16.4 H Lymph % (Auto) 13.3 L [place] % (Auto) 12.5 H Eos % (Auto) Lymph # 1.1 L [place] # 1.0 H Lymph # (Auto) [place] # (Auto) Seg Neutrophils % Seg Neuts % (Manual) Lymphocytes % (Manual) Seg Neutrophils # Seg Neutrophils # Man Lymphocytes # (Manual) Monocytes % (Manual) Eosinophils % (Manual) Monocytes # (Manual) Eosinophils # (Manual) D-Dimer Heparin Anti-Xa Level ABG pH POC ABG pCO2 POC ABG pO2 ABG pO2 ABG HCO3 26.9 H ABG O2 Saturation ABG Base Excess ABG Hemoglobin 6.9 L ABG Oxyhemoglobin VBG pH ABG Sodium ABG Potassium ABG Glucose Oxyhemoglobin Sodium Potassium Chloride Carbon Dioxide BUN Creatinine Glucose POC Glucose 142 H Lactic Acid Calcium Ferritin AST Alkaline Phosphatase Magnesium Lactate Dehydrogenase Total Creatine Kinase CK-MB (CK-2) C-Reactive Protein Total Protein Albumin Troponin T HDL Cholesterol Arterial Blood Glucose Urine WBC (Auto) Urine Creatinine Urine Total Protein Coronavirus (PCR) Crossmatch 06/29/20 06/29/20 06/29/20 04:38 05:38 12:25 WBC RBC Hgb Hct MCHC RDW Lymph % (Auto) [place] % (Auto) Eos % (Auto) Lymph # [place] # Lymph # (Auto) [place] # (Auto) Seg Neutrophils % Seg Neuts % (Manual) Lymphocytes % (Manual) Seg Neutrophils # Seg Neutrophils # Man Lymphocytes # (Manual) Monocytes % (Manual) Eosinophils % (Manual) Monocytes # (Manual) Eosinophils # (Manual) D-Dimer Heparin Anti-Xa Level ABG pH POC ABG pCO2 POC ABG pO2 ABG pO2 ABG HCO3 ABG O2 Saturation ABG Base Excess ABG Hemoglobin ABG Oxyhemoglobin VBG pH ABG Sodium ABG Potassium ABG Glucose Oxyhemoglobin Sodium Potassium Chloride 107.8 H Carbon Dioxide BUN 72 H Creatinine 1.4 H Glucose 127 H POC Glucose 122 H 138 H Lactic Acid Calcium 7.4 L Ferritin AST Alkaline Phosphatase Magnesium Lactate Dehydrogenase Total Creatine Kinase CK-MB (CK-2) C-Reactive Protein Total Protein Albumin Troponin T HDL Cholesterol Arterial Blood Glucose Urine WBC (Auto) Urine Creatinine Urine Total Protein Coronavirus (PCR) Crossmatch 06/29/20 06/29/20 06/29/20 14:45 14:45 14:45 WBC RBC Hgb Hct MCHC RDW Lymph % (Auto) [place] % (Auto) Eos % (Auto) Lymph # [place] # Lymph # (Auto) [place] # (Auto) Seg Neutrophils % Seg Neuts % (Manual) Lymphocytes % (Manual) Seg Neutrophils # Seg Neutrophils # Man Lymphocytes # (Manual) Monocytes % (Manual) Eosinophils % (Manual) Monocytes # (Manual) Eosinophils # (Manual) D-Dimer 2310.15 H Heparin Anti-Xa Level ABG pH POC ABG pCO2 POC ABG pO2 ABG pO2 ABG HCO3 ABG O2 Saturation ABG Base Excess ABG Hemoglobin ABG Oxyhemoglobin VBG pH ABG Sodium ABG Potassium ABG Glucose Oxyhemoglobin Sodium Potassium Chloride Carbon Dioxide BUN Creatinine Glucose POC Glucose Lactic Acid Calcium Ferritin 223.6 H AST Alkaline Phosphatase Magnesium Lactate Dehydrogenase 367 H Total Creatine Kinase CK-MB (CK-2) C-Reactive Protein 3.60 H Total Protein Albumin Troponin T HDL Cholesterol Arterial Blood Glucose Urine WBC (Auto) Urine Creatinine Urine Total Protein Coronavirus (PCR) Crossmatch 06/29/20 06/29/20 06/29/20 18:27 23:35 Unknown WBC RBC Hgb Hct MCHC RDW Lymph % (Auto) [place] % (Auto) Eos % (Auto) Lymph # [place] # Lymph # (Auto) [place] # (Auto) Seg Neutrophils % Seg Neuts % (Manual) Lymphocytes % (Manual) Seg Neutrophils # Seg Neutrophils # Man Lymphocytes # (Manual) Monocytes % (Manual) Eosinophils % (Manual) Monocytes # (Manual) Eosinophils # (Manual) D-Dimer Heparin Anti-Xa Level ABG pH POC ABG pCO2 POC ABG pO2 ABG pO2 ABG HCO3 ABG O2 Saturation ABG Base Excess ABG Hemoglobin ABG Oxyhemoglobin VBG pH ABG Sodium ABG Potassium ABG Glucose Oxyhemoglobin Sodium Potassium Chloride Carbon Dioxide BUN Creatinine Glucose POC Glucose 112 H 140 H Lactic Acid Calcium Ferritin AST Alkaline Phosphatase Magnesium Lactate Dehydrogenase Total Creatine Kinase CK-MB (CK-2) C-Reactive Protein Total Protein Albumin Troponin T HDL Cholesterol Arterial Blood Glucose Urine WBC (Auto) Urine Creatinine Urine Total Protein Coronavirus (PCR) Positive A Crossmatch 06/30/20 06/30/20 06/30/20 04:10 04:10 06:09 WBC RBC 2.44 L Hgb 7.1 L Hct 21.5 L MCHC RDW 16.6 H Lymph % (Auto) 11.0 L [place] % (Auto) 10.8 H Eos % (Auto) Lymph # 0.9 L [place] # 0.9 H Lymph # (Auto) [place] # (Auto) Seg Neutrophils % 73.7 H Seg Neuts % (Manual) Lymphocytes % (Manual) Seg Neutrophils # Seg Neutrophils # Man Lymphocytes # (Manual) Monocytes % (Manual) Eosinophils % (Manual) Monocytes # (Manual) Eosinophils # (Manual) D-Dimer Heparin Anti-Xa Level ABG pH POC ABG pCO2 POC ABG pO2 ABG pO2 ABG HCO3 ABG O2 Saturation ABG Base Excess ABG Hemoglobin ABG Oxyhemoglobin VBG pH ABG Sodium ABG Potassium ABG Glucose Oxyhemoglobin Sodium Potassium Chloride 109.1 H Carbon Dioxide BUN 74 H Creatinine 1.3 H Glucose 191 H POC Glucose 187 H Lactic Acid Calcium 7.8 L Ferritin AST Alkaline Phosphatase Magnesium Lactate Dehydrogenase Total Creatine Kinase CK-MB (CK-2) C-Reactive Protein Total Protein Albumin Troponin T HDL Cholesterol Arterial Blood Glucose Urine WBC (Auto) Urine Creatinine Urine Total Protein Coronavirus (PCR) Crossmatch 06/30/20 06/30/20 06/30/20 12:04 17:43 23:41 WBC RBC Hgb Hct MCHC RDW Lymph % (Auto) [place] % (Auto) Eos % (Auto) Lymph # [place] # Lymph # (Auto) [place] # (Auto) Seg Neutrophils % Seg Neuts % (Manual) Lymphocytes % (Manual) Seg Neutrophils # Seg Neutrophils # Man Lymphocytes # (Manual) Monocytes % (Manual) Eosinophils % (Manual) Monocytes # (Manual) Eosinophils # (Manual) D-Dimer Heparin Anti-Xa Level ABG pH POC ABG pCO2 POC ABG pO2 ABG pO2 ABG HCO3 ABG O2 Saturation ABG Base Excess ABG Hemoglobin ABG Oxyhemoglobin VBG pH ABG Sodium ABG Potassium ABG Glucose Oxyhemoglobin Sodium Potassium Chloride Carbon Dioxide BUN Creatinine Glucose POC Glucose 112 H 177 H 143 H Lactic Acid Calcium Ferritin AST Alkaline Phosphatase Magnesium Lactate Dehydrogenase Total Creatine Kinase CK-MB (CK-2) C-Reactive Protein Total Protein Albumin Troponin T HDL Cholesterol Arterial Blood Glucose Urine WBC (Auto) Urine Creatinine Urine Total Protein Coronavirus (PCR) Crossmatch 07/01/20 07/01/20 07/01/20 05:02 05:52 06:01 WBC 12.6 H RBC 2.95 L Hgb 8.2 L Hct 26.0 L MCHC RDW 16.9 H Lymph % (Auto) [place] % (Auto) Eos % (Auto) Lymph # [place] # Lymph # (Auto) [place] # (Auto) Seg Neutrophils % Seg Neuts % (Manual) Lymphocytes % (Manual) Seg Neutrophils # Seg Neutrophils # Man 8.6 H Lymphocytes # (Manual) Monocytes % (Manual) Eosinophils % (Manual) 5.0 H Monocytes # (Manual) Eosinophils # (Manual) 0.6 H D-Dimer Heparin Anti-Xa Level ABG pH POC ABG pCO2 POC ABG pO2 ABG pO2 ABG HCO3 ABG O2 Saturation ABG Base Excess ABG Hemoglobin 8.2 L ABG Oxyhemoglobin VBG pH ABG Sodium ABG Potassium ABG Glucose Oxyhemoglobin Sodium Potassium Chloride Carbon Dioxide BUN Creatinine Glucose POC Glucose 129 H Lactic Acid Calcium Ferritin AST Alkaline Phosphatase Magnesium Lactate Dehydrogenase Total Creatine Kinase CK-MB (CK-2) C-Reactive Protein Total Protein Albumin Troponin T HDL Cholesterol Arterial Blood Glucose Urine WBC (Auto) Urine Creatinine Urine Total Protein Coronavirus (PCR) Crossmatch 07/01/20 07/01/20 07/01/20 06:01 06:01 06:08 WBC RBC Hgb Hct MCHC RDW Lymph % (Auto) [place] % (Auto) Eos % (Auto) Lymph # [place] # Lymph # (Auto) [place] # (Auto) Seg Neutrophils % Seg Neuts % (Manual) Lymphocytes % (Manual) Seg Neutrophils # Seg Neutrophils # Man Lymphocytes # (Manual) Monocytes % (Manual) Eosinophils % (Manual) Monocytes # (Manual) Eosinophils # (Manual) D-Dimer Heparin Anti-Xa Level ABG pH POC ABG pCO2 POC ABG pO2 ABG pO2 ABG HCO3 ABG O2 Saturation ABG Base Excess ABG Hemoglobin ABG Oxyhemoglobin VBG pH ABG Sodium ABG Potassium ABG Glucose Oxyhemoglobin Sodium 147 H Potassium Chloride 108.0 H Carbon Dioxide BUN 71 H Creatinine 1.3 H Glucose 193 H POC Glucose 192 H Lactic Acid Calcium 8.1 L Ferritin AST Alkaline Phosphatase Magnesium Lactate Dehydrogenase Total Creatine Kinase 300 H CK-MB (CK-2) C-Reactive Protein Total Protein Albumin Troponin T 0.067 H HDL Cholesterol 61 H Arterial Blood Glucose Urine WBC (Auto) Urine Creatinine Urine Total Protein Coronavirus (PCR) Crossmatch 07/01/20 07/01/20 07/02/20 12:23 17:40 00:18 WBC RBC Hgb Hct MCHC RDW Lymph % (Auto) [place] % (Auto) Eos % (Auto) Lymph # [place] # Lymph # (Auto) [place] # (Auto) Seg Neutrophils % Seg Neuts % (Manual) Lymphocytes % (Manual) Seg Neutrophils # Seg Neutrophils # Man Lymphocytes # (Manual) Monocytes % (Manual) Eosinophils % (Manual) Monocytes # (Manual) Eosinophils # (Manual) D-Dimer Heparin Anti-Xa Level ABG pH POC ABG pCO2 POC ABG pO2 ABG pO2 ABG HCO3 ABG O2 Saturation ABG Base Excess ABG Hemoglobin ABG Oxyhemoglobin VBG pH ABG Sodium ABG Potassium ABG Glucose Oxyhemoglobin Sodium Potassium Chloride Carbon Dioxide BUN Creatinine Glucose POC Glucose 111 H 135 H 145 H Lactic Acid Calcium Ferritin AST Alkaline Phosphatase Magnesium Lactate Dehydrogenase Total Creatine Kinase CK-MB (CK-2) C-Reactive Protein Total Protein Albumin Troponin T HDL Cholesterol Arterial Blood Glucose Urine WBC (Auto) Urine Creatinine Urine Total Protein Coronavirus (PCR) Crossmatch 07/02/20 07/02/20 07/02/20 04:11 04:23 05:54 WBC RBC Hgb Hct MCHC RDW Lymph % (Auto) [place] % (Auto) Eos % (Auto) Lymph # [place] # Lymph # (Auto) [place] # (Auto) Seg Neutrophils % Seg Neuts % (Manual) Lymphocytes % (Manual) Seg Neutrophils # Seg Neutrophils # Man Lymphocytes # (Manual) Monocytes % (Manual) Eosinophils % (Manual) Monocytes # (Manual) Eosinophils # (Manual) D-Dimer Heparin Anti-Xa Level ABG pH POC ABG pCO2 POC ABG pO2 ABG pO2 ABG HCO3 ABG O2 Saturation ABG Base Excess ABG Hemoglobin 5.4 L ABG Oxyhemoglobin VBG pH ABG Sodium ABG Potassium ABG Glucose Oxyhemoglobin Sodium Potassium Chloride 108.6 H Carbon Dioxide BUN 72 H Creatinine Glucose 112 H POC Glucose 137 H Lactic Acid Calcium 7.8 L Ferritin AST Alkaline Phosphatase Magnesium Lactate Dehydrogenase Total Creatine Kinase CK-MB (CK-2) C-Reactive Protein Total Protein Albumin Troponin T HDL Cholesterol Arterial Blood Glucose Urine WBC (Auto) Urine Creatinine Urine Total Protein Coronavirus (PCR) Crossmatch 07/02/20 07/02/20 07/02/20 11:38 18:04 23:59 WBC RBC Hgb Hct MCHC RDW Lymph % (Auto) [place] % (Auto) Eos % (Auto) Lymph # [place] # Lymph # (Auto) [place] # (Auto) Seg Neutrophils % Seg Neuts % (Manual) Lymphocytes % (Manual) Seg Neutrophils # Seg Neutrophils # Man Lymphocytes # (Manual) Monocytes % (Manual) Eosinophils % (Manual) Monocytes # (Manual) Eosinophils # (Manual) D-Dimer Heparin Anti-Xa Level ABG pH POC ABG pCO2 POC ABG pO2 ABG pO2 ABG HCO3 ABG O2 Saturation ABG Base Excess ABG Hemoglobin ABG Oxyhemoglobin VBG pH ABG Sodium ABG Potassium ABG Glucose Oxyhemoglobin Sodium Potassium Chloride Carbon Dioxide BUN Creatinine Glucose POC Glucose 128 H 135 H 156 H Lactic Acid Calcium Ferritin AST Alkaline Phosphatase Magnesium Lactate Dehydrogenase Total Creatine Kinase CK-MB (CK-2) C-Reactive Protein Total Protein Albumin Troponin T HDL Cholesterol Arterial Blood Glucose Urine WBC (Auto) Urine Creatinine Urine Total Protein Coronavirus (PCR) Crossmatch 07/03/20 07/03/20 07/03/20 03:49 06:00 11:31 WBC RBC Hgb Hct MCHC RDW Lymph % (Auto) [place] % (Auto) Eos % (Auto) Lymph # [place] # Lymph # (Auto) [place] # (Auto) Seg Neutrophils % Seg Neuts % (Manual) Lymphocytes % (Manual) Seg Neutrophils # Seg Neutrophils # Man Lymphocytes # (Manual) Monocytes % (Manual) Eosinophils % (Manual) Monocytes # (Manual) Eosinophils # (Manual) D-Dimer Heparin Anti-Xa Level ABG pH POC ABG pCO2 POC ABG pO2 ABG pO2 121.0 H ABG HCO3 ABG O2 Saturation ABG Base Excess ABG Hemoglobin 8.5 L ABG Oxyhemoglobin VBG pH ABG Sodium ABG Potassium ABG Glucose Oxyhemoglobin Sodium Potassium Chloride Carbon Dioxide BUN Creatinine Glucose POC Glucose 135 H 141 H Lactic Acid Calcium Ferritin AST Alkaline Phosphatase Magnesium Lactate Dehydrogenase Total Creatine Kinase CK-MB (CK-2) C-Reactive Protein Total Protein Albumin Troponin T HDL Cholesterol Arterial Blood Glucose Urine WBC (Auto) Urine Creatinine Urine Total Protein Coronavirus (PCR) Crossmatch 07/03/20 07/03/20 07/04/20 16:07 17:40 05:49 WBC RBC Hgb Hct MCHC RDW Lymph % (Auto) [place] % (Auto) Eos % (Auto) Lymph # [place] # Lymph # (Auto) [place] # (Auto) Seg Neutrophils % Seg Neuts % (Manual) Lymphocytes % (Manual) Seg Neutrophils # Seg Neutrophils # Man Lymphocytes # (Manual) Monocytes % (Manual) Eosinophils % (Manual) Monocytes # (Manual) Eosinophils # (Manual) D-Dimer Heparin Anti-Xa Level ABG pH POC ABG pCO2 POC ABG pO2 ABG pO2 126.9 H ABG HCO3 ABG O2 Saturation ABG Base Excess ABG Hemoglobin 8.1 L ABG Oxyhemoglobin VBG pH ABG Sodium ABG Potassium ABG Glucose Oxyhemoglobin Sodium Potassium Chloride Carbon Dioxide BUN Creatinine Glucose POC Glucose 120 H 128 H Lactic Acid Calcium Ferritin AST Alkaline Phosphatase Magnesium Lactate Dehydrogenase Total Creatine Kinase CK-MB (CK-2) C-Reactive Protein Total Protein Albumin Troponin T HDL Cholesterol Arterial Blood Glucose Urine WBC (Auto) Urine Creatinine Urine Total Protein Coronavirus (PCR) Crossmatch 07/04/20 07/04/20 07/05/20 11:54 18:00 00:07 WBC RBC Hgb Hct MCHC RDW Lymph % (Auto) [place] % (Auto) Eos % (Auto) Lymph # [place] # Lymph # (Auto) [place] # (Auto) Seg Neutrophils % Seg Neuts % (Manual) Lymphocytes % (Manual) Seg Neutrophils # Seg Neutrophils # Man Lymphocytes # (Manual) Monocytes % (Manual) Eosinophils % (Manual) Monocytes # (Manual) Eosinophils # (Manual) D-Dimer Heparin Anti-Xa Level ABG pH POC ABG pCO2 POC ABG pO2 ABG pO2 ABG HCO3 ABG O2 Saturation ABG Base Excess ABG Hemoglobin ABG Oxyhemoglobin VBG pH ABG Sodium ABG Potassium ABG Glucose Oxyhemoglobin Sodium Potassium Chloride Carbon Dioxide BUN Creatinine Glucose POC Glucose 168 H 133 H 121 H Lactic Acid Calcium Ferritin AST Alkaline Phosphatase Magnesium Lactate Dehydrogenase Total Creatine Kinase CK-MB (CK-2) C-Reactive Protein Total Protein Albumin Troponin T HDL Cholesterol Arterial Blood Glucose Urine WBC (Auto) Urine Creatinine Urine Total Protein Coronavirus (PCR) Crossmatch 07/05/20 07/05/20 07/05/20 01:12 02:30 12:09 WBC RBC 2.35 L Hgb 6.9 L Hct 21.1 L MCHC RDW 16.8 H Lymph % (Auto) [place] % (Auto) Eos % (Auto) Lymph # [place] # Lymph # (Auto) [place] # (Auto) Seg Neutrophils % Seg Neuts % (Manual) 74.0 H Lymphocytes % (Manual) 12.0 L Seg Neutrophils # Seg Neutrophils # Man 8.0 H Lymphocytes # (Manual) Monocytes % (Manual) 9.0 H Eosinophils % (Manual) Monocytes # (Manual) 1.0 H Eosinophils # (Manual) D-Dimer Heparin Anti-Xa Level ABG pH POC ABG pCO2 POC ABG pO2 ABG pO2 ABG HCO3 ABG O2 Saturation ABG Base Excess ABG Hemoglobin ABG Oxyhemoglobin VBG pH ABG Sodium ABG Potassium ABG Glucose Oxyhemoglobin Sodium Potassium Chloride Carbon Dioxide BUN Creatinine Glucose POC Glucose 132 H Lactic Acid Calcium Ferritin AST Alkaline Phosphatase Magnesium Lactate Dehydrogenase Total Creatine Kinase CK-MB (CK-2) C-Reactive Protein Total Protein Albumin Troponin T HDL Cholesterol Arterial Blood Glucose Urine WBC (Auto) Urine Creatinine Urine Total Protein Coronavirus (PCR) Crossmatch See Detail 07/05/20 07/05/20 07/05/20 13:05 18:04 23:13 WBC RBC 2.57 L Hgb 7.7 L Hct 23.0 L MCHC RDW 16.9 H Lymph % (Auto) [place] % (Auto) Eos % (Auto) Lymph # [place] # Lymph # (Auto) [place] # (Auto) Seg Neutrophils % Seg Neuts % (Manual) Lymphocytes % (Manual) Seg Neutrophils # Seg Neutrophils # Man Lymphocytes # (Manual) Monocytes % (Manual) Eosinophils % (Manual) Monocytes # (Manual) Eosinophils # (Manual) D-Dimer Heparin Anti-Xa Level ABG pH 7.32 L POC ABG pCO2 POC ABG pO2 ABG pO2 78.3 L ABG HCO3 ABG O2 Saturation ABG Base Excess -2.6 L ABG Hemoglobin 7.3 L ABG Oxyhemoglobin VBG pH ABG Sodium ABG Potassium ABG Glucose Oxyhemoglobin Sodium Potassium Chloride Carbon Dioxide BUN Creatinine Glucose POC Glucose 160 H Lactic Acid Calcium Ferritin AST Alkaline Phosphatase Magnesium Lactate Dehydrogenase Total Creatine Kinase CK-MB (CK-2) C-Reactive Protein Total Protein Albumin Troponin T HDL Cholesterol Arterial Blood Glucose Urine WBC (Auto) Urine Creatinine Urine Total Protein Coronavirus (PCR) Crossmatch 07/05/20 07/05/20 07/06/20 23:13 23:43 13:20 WBC RBC Hgb Hct MCHC RDW Lymph % (Auto) [place] % (Auto) Eos % (Auto) Lymph # [place] # Lymph # (Auto) [place] # (Auto) Seg Neutrophils % Seg Neuts % (Manual) Lymphocytes % (Manual) Seg Neutrophils # Seg Neutrophils # Man Lymphocytes # (Manual) Monocytes % (Manual) Eosinophils % (Manual) Monocytes # (Manual) Eosinophils # (Manual) D-Dimer Heparin Anti-Xa Level ABG pH POC ABG pCO2 POC ABG pO2 ABG pO2 ABG HCO3 ABG O2 Saturation ABG Base Excess ABG Hemoglobin ABG Oxyhemoglobin VBG pH ABG Sodium ABG Potassium ABG Glucose Oxyhemoglobin Sodium Potassium Chloride Carbon Dioxide 20 L BUN 80 H Creatinine 2.4 H D Glucose 124 H POC Glucose 121 H Lactic Acid Calcium 7.6 L Ferritin AST Alkaline Phosphatase Magnesium Lactate Dehydrogenase Total Creatine Kinase CK-MB (CK-2) C-Reactive Protein Total Protein Albumin Troponin T HDL Cholesterol Arterial Blood Glucose Urine WBC (Auto) Urine Creatinine 33.3 H Urine Total Protein Coronavirus (PCR) Crossmatch 07/06/20 07/06/20 07/07/20 14:48 17:28 00:12 WBC RBC Hgb Hct MCHC RDW Lymph % (Auto) [place] % (Auto) Eos % (Auto) Lymph # [place] # Lymph # (Auto) [place] # (Auto) Seg Neutrophils % Seg Neuts % (Manual) Lymphocytes % (Manual) Seg Neutrophils # Seg Neutrophils # Man Lymphocytes # (Manual) Monocytes % (Manual) Eosinophils % (Manual) Monocytes # (Manual) Eosinophils # (Manual) D-Dimer Heparin Anti-Xa Level ABG pH POC ABG pCO2 POC ABG pO2 ABG pO2 ABG HCO3 ABG O2 Saturation ABG Base Excess ABG Hemoglobin ABG Oxyhemoglobin VBG pH ABG Sodium ABG Potassium ABG Glucose Oxyhemoglobin Sodium 136 L Potassium 5.5 H Chloride Carbon Dioxide 19 L BUN 82 H Creatinine 2.5 H Glucose 113 H POC Glucose 133 H 154 H Lactic Acid Calcium 7.7 L Ferritin AST Alkaline Phosphatase Magnesium Lactate Dehydrogenase Total Creatine Kinase CK-MB (CK-2) C-Reactive Protein Total Protein Albumin Troponin T HDL Cholesterol Arterial Blood Glucose Urine WBC (Auto) Urine Creatinine Urine Total Protein Coronavirus (PCR) Crossmatch 07/07/20 07/07/20 07/07/20 04:15 04:15 05:31 WBC RBC 2.28 L Hgb 6.8 L Hct 20.7 L MCHC RDW 16.8 H Lymph % (Auto) [place] % (Auto) Eos % (Auto) Lymph # [place] # Lymph # (Auto) [place] # (Auto) Seg Neutrophils % Seg Neuts % (Manual) Lymphocytes % (Manual) 13.0 L Seg Neutrophils # Seg Neutrophils # Man Lymphocytes # (Manual) 1.0 L Monocytes % (Manual) 11.0 H Eosinophils % (Manual) Monocytes # (Manual) 0.9 H Eosinophils # (Manual) D-Dimer Heparin Anti-Xa Level ABG pH POC ABG pCO2 POC ABG pO2 ABG pO2 ABG HCO3 ABG O2 Saturation ABG Base Excess ABG Hemoglobin ABG Oxyhemoglobin VBG pH ABG Sodium ABG Potassium ABG Glucose Oxyhemoglobin Sodium Potassium Chloride Carbon Dioxide BUN Creatinine Glucose POC Glucose 135 H Lactic Acid Calcium Ferritin AST Alkaline Phosphatase Magnesium 2.50 H Lactate Dehydrogenase Total Creatine Kinase CK-MB (CK-2) C-Reactive Protein Total Protein Albumin Troponin T HDL Cholesterol Arterial Blood Glucose Urine WBC (Auto) Urine Creatinine Urine Total Protein Coronavirus (PCR) Crossmatch 07/07/20 07/07/20 07/07/20 12:31 13:22 17:55 WBC RBC Hgb Hct MCHC RDW Lymph % (Auto) [place] % (Auto) Eos % (Auto) Lymph # [place] # Lymph # (Auto) [place] # (Auto) Seg Neutrophils % Seg Neuts % (Manual) Lymphocytes % (Manual) Seg Neutrophils # Seg Neutrophils # Man Lymphocytes # (Manual) Monocytes % (Manual) Eosinophils % (Manual) Monocytes # (Manual) Eosinophils # (Manual) D-Dimer Heparin Anti-Xa Level ABG pH POC ABG pCO2 POC ABG pO2 ABG pO2 ABG HCO3 ABG O2 Saturation ABG Base Excess ABG Hemoglobin ABG Oxyhemoglobin VBG pH ABG Sodium ABG Potassium ABG Glucose Oxyhemoglobin Sodium Potassium 5.6 H Chloride Carbon Dioxide BUN 86 H Creatinine 2.9 H Glucose 127 H POC Glucose 131 H 136 H Lactic Acid Calcium 8.1 L Ferritin AST Alkaline Phosphatase Magnesium Lactate Dehydrogenase Total Creatine Kinase CK-MB (CK-2) C-Reactive Protein Total Protein Albumin Troponin T HDL Cholesterol Arterial Blood Glucose Urine WBC (Auto) Urine Creatinine Urine Total Protein Coronavirus (PCR) Crossmatch 07/07/20 07/08/20 07/08/20 23:33 04:14 04:14 WBC RBC 3.28 L Hgb 9.7 L Hct 28.9 L D MCHC RDW 16.4 H Lymph % (Auto) 10.3 L [place] % (Auto) 10.0 H Eos % (Auto) Lymph # [place] # Lymph # (Auto) 1.1 L [place] # (Auto) 1.1 H Seg Neutrophils % 77.2 H Seg Neuts % (Manual) Lymphocytes % (Manual) Seg Neutrophils # 8.2 H Seg Neutrophils # Man Lymphocytes # (Manual) Monocytes % (Manual) Eosinophils % (Manual) Monocytes # (Manual) Eosinophils # (Manual) D-Dimer Heparin Anti-Xa Level ABG pH POC ABG pCO2 POC ABG pO2 ABG pO2 ABG HCO3 ABG O2 Saturation ABG Base Excess ABG Hemoglobin ABG Oxyhemoglobin VBG pH ABG Sodium ABG Potassium ABG Glucose Oxyhemoglobin Sodium 136 L Potassium Chloride Carbon Dioxide BUN 84 H Creatinine 2.8 H Glucose 109 H POC Glucose 159 H Lactic Acid Calcium 8.1 L Ferritin AST Alkaline Phosphatase Magnesium 2.50 H Lactate Dehydrogenase Total Creatine Kinase CK-MB (CK-2) C-Reactive Protein Total Protein Albumin Troponin T HDL Cholesterol Arterial Blood Glucose Urine WBC (Auto) Urine Creatinine Urine Total Protein Coronavirus (PCR) Crossmatch 07/08/20 07/08/20 07/08/20 12:10 18:10 23:50 WBC RBC Hgb Hct MCHC RDW Lymph % (Auto) [place] % (Auto) Eos % (Auto) Lymph # [place] # Lymph # (Auto) [place] # (Auto) Seg Neutrophils % Seg Neuts % (Manual) Lymphocytes % (Manual) Seg Neutrophils # Seg Neutrophils # Man Lymphocytes # (Manual) Monocytes % (Manual) Eosinophils % (Manual) Monocytes # (Manual) Eosinophils # (Manual) D-Dimer Heparin Anti-Xa Level ABG pH POC ABG pCO2 POC ABG pO2 ABG pO2 ABG HCO3 ABG O2 Saturation ABG Base Excess ABG Hemoglobin ABG Oxyhemoglobin VBG pH ABG Sodium ABG Potassium ABG Glucose Oxyhemoglobin Sodium Potassium Chloride Carbon Dioxide BUN Creatinine Glucose POC Glucose 108 H 125 H 141 H Lactic Acid Calcium Ferritin AST Alkaline Phosphatase Magnesium Lactate Dehydrogenase Total Creatine Kinase CK-MB (CK-2) C-Reactive Protein Total Protein Albumin Troponin T HDL Cholesterol Arterial Blood Glucose Urine WBC (Auto) Urine Creatinine Urine Total Protein Coronavirus (PCR) Crossmatch 07/09/20 07/09/20 07/09/20 05:39 11:57 17:56 WBC RBC Hgb Hct MCHC RDW Lymph % (Auto) [place] % (Auto) Eos % (Auto) Lymph # [place] # Lymph # (Auto) [place] # (Auto) Seg Neutrophils % Seg Neuts % (Manual) Lymphocytes % (Manual) Seg Neutrophils # Seg Neutrophils # Man Lymphocytes # (Manual) Monocytes % (Manual) Eosinophils % (Manual) Monocytes # (Manual) Eosinophils # (Manual) D-Dimer Heparin Anti-Xa Level ABG pH POC ABG pCO2 POC ABG pO2 ABG pO2 ABG HCO3 ABG O2 Saturation ABG Base Excess ABG Hemoglobin ABG Oxyhemoglobin VBG pH ABG Sodium ABG Potassium ABG Glucose Oxyhemoglobin Sodium Potassium Chloride Carbon Dioxide BUN Creatinine Glucose POC Glucose 121 H 123 H 119 H Lactic Acid Calcium Ferritin AST Alkaline Phosphatase Magnesium Lactate Dehydrogenase Total Creatine Kinase CK-MB (CK-2) C-Reactive Protein Total Protein Albumin Troponin T HDL Cholesterol Arterial Blood Glucose Urine WBC (Auto) Urine Creatinine Urine Total Protein Coronavirus (PCR) Crossmatch 07/10/20 07/10/20 07/10/20 00:29 05:50 10:41 WBC RBC 3.11 L Hgb 9.2 L Hct 27.6 L MCHC RDW 16.6 H Lymph % (Auto) [place] % (Auto) Eos % (Auto) Lymph # [place] # Lymph # (Auto) [place] # (Auto) Seg Neutrophils % Seg Neuts % (Manual) 78.0 H Lymphocytes % (Manual) 11.0 L Seg Neutrophils # Seg Neutrophils # Man Lymphocytes # (Manual) 1.0 L Monocytes % (Manual) Eosinophils % (Manual) Monocytes # (Manual) Eosinophils # (Manual) D-Dimer Heparin Anti-Xa Level ABG pH POC ABG pCO2 POC ABG pO2 ABG pO2 ABG HCO3 ABG O2 Saturation ABG Base Excess ABG Hemoglobin ABG Oxyhemoglobin VBG pH ABG Sodium ABG Potassium ABG Glucose Oxyhemoglobin Sodium Potassium Chloride Carbon Dioxide BUN Creatinine Glucose POC Glucose 122 H 124 H Lactic Acid Calcium Ferritin AST Alkaline Phosphatase Magnesium Lactate Dehydrogenase Total Creatine Kinase CK-MB (CK-2) C-Reactive Protein Total Protein Albumin Troponin T HDL Cholesterol Arterial Blood Glucose Urine WBC (Auto) Urine Creatinine Urine Total Protein Coronavirus (PCR) Crossmatch 07/10/20 07/10/20 07/10/20 10:41 12:25 18:10 WBC RBC Hgb Hct MCHC RDW Lymph % (Auto) [place] % (Auto) Eos % (Auto) Lymph # [place] # Lymph # (Auto) [place] # (Auto) Seg Neutrophils % Seg Neuts % (Manual) Lymphocytes % (Manual) Seg Neutrophils # Seg Neutrophils # Man Lymphocytes # (Manual) Monocytes % (Manual) Eosinophils % (Manual) Monocytes # (Manual) Eosinophils # (Manual) D-Dimer Heparin Anti-Xa Level ABG pH POC ABG pCO2 POC ABG pO2 ABG pO2 ABG HCO3 ABG O2 Saturation ABG Base Excess ABG Hemoglobin ABG Oxyhemoglobin VBG pH ABG Sodium ABG Potassium ABG Glucose Oxyhemoglobin Sodium Potassium Chloride Carbon Dioxide BUN 85 H Creatinine 2.5 H Glucose 133 H POC Glucose 131 H 134 H Lactic Acid Calcium Ferritin AST Alkaline Phosphatase 131 H Magnesium Lactate Dehydrogenase Total Creatine Kinase CK-MB (CK-2) C-Reactive Protein Total Protein 5.2 L Albumin 1.6 L Troponin T HDL Cholesterol Arterial Blood Glucose Urine WBC (Auto) Urine Creatinine Urine Total Protein Coronavirus (PCR) Crossmatch 07/11/20 07/11/20 07/11/20 00:28 05:57 12:14 WBC RBC Hgb Hct MCHC RDW Lymph % (Auto) [place] % (Auto) Eos % (Auto) Lymph # [place] # Lymph # (Auto) [place] # (Auto) Seg Neutrophils % Seg Neuts % (Manual) Lymphocytes % (Manual) Seg Neutrophils # Seg Neutrophils # Man Lymphocytes # (Manual) Monocytes % (Manual) Eosinophils % (Manual) Monocytes # (Manual) Eosinophils # (Manual) D-Dimer Heparin Anti-Xa Level ABG pH POC ABG pCO2 POC ABG pO2 ABG pO2 ABG HCO3 ABG O2 Saturation ABG Base Excess ABG Hemoglobin ABG Oxyhemoglobin VBG pH ABG Sodium ABG Potassium ABG Glucose Oxyhemoglobin Sodium Potassium Chloride Carbon Dioxide BUN Creatinine Glucose POC Glucose 140 H 148 H 147 H Lactic Acid Calcium Ferritin AST Alkaline Phosphatase Magnesium Lactate Dehydrogenase Total Creatine Kinase CK-MB (CK-2) C-Reactive Protein Total Protein Albumin Troponin T HDL Cholesterol Arterial Blood Glucose Urine WBC (Auto) Urine Creatinine Urine Total Protein Coronavirus (PCR) Crossmatch 07/11/20 07/11/20 07/12/20 17:28 23:49 05:14 WBC RBC 2.78 L Hgb 8.5 L Hct 25.3 L MCHC RDW 16.7 H Lymph % (Auto) [place] % (Auto) Eos % (Auto) Lymph # [place] # Lymph # (Auto) [place] # (Auto) Seg Neutrophils % Seg Neuts % (Manual) 81.0 H Lymphocytes % (Manual) 6.0 L Seg Neutrophils # Seg Neutrophils # Man Lymphocytes # (Manual) 0.6 L Monocytes % (Manual) 8.0 H Eosinophils % (Manual) Monocytes # (Manual) Eosinophils # (Manual) D-Dimer Heparin Anti-Xa Level ABG pH POC ABG pCO2 POC ABG pO2 ABG pO2 ABG HCO3 ABG O2 Saturation ABG Base Excess ABG Hemoglobin ABG Oxyhemoglobin VBG pH ABG Sodium ABG Potassium ABG Glucose Oxyhemoglobin Sodium Potassium Chloride Carbon Dioxide BUN Creatinine Glucose POC Glucose 175 H 114 H Lactic Acid Calcium Ferritin AST Alkaline Phosphatase Magnesium Lactate Dehydrogenase Total Creatine Kinase CK-MB (CK-2) C-Reactive Protein Total Protein Albumin Troponin T HDL Cholesterol Arterial Blood Glucose Urine WBC (Auto) Urine Creatinine Urine Total Protein Coronavirus (PCR) Crossmatch 07/12/20 07/12/20 07/12/20 05:14 05:44 11:32 WBC RBC Hgb Hct MCHC RDW Lymph % (Auto) [place] % (Auto) Eos % (Auto) Lymph # [place] # Lymph # (Auto) [place] # (Auto) Seg Neutrophils % Seg Neuts % (Manual) Lymphocytes % (Manual) Seg Neutrophils # Seg Neutrophils # Man Lymphocytes # (Manual) Monocytes % (Manual) Eosinophils % (Manual) Monocytes # (Manual) Eosinophils # (Manual) D-Dimer Heparin Anti-Xa Level ABG pH POC ABG pCO2 POC ABG pO2 ABG pO2 ABG HCO3 ABG O2 Saturation ABG Base Excess ABG Hemoglobin ABG Oxyhemoglobin VBG pH ABG Sodium ABG Potassium ABG Glucose Oxyhemoglobin Sodium Potassium Chloride Carbon Dioxide BUN 79 H Creatinine 2.2 H Glucose 131 H POC Glucose 116 H 132 H Lactic Acid Calcium Ferritin AST Alkaline Phosphatase Magnesium Lactate Dehydrogenase Total Creatine Kinase CK-MB (CK-2) C-Reactive Protein Total Protein Albumin Troponin T HDL Cholesterol Arterial Blood Glucose Urine WBC (Auto) Urine Creatinine Urine Total Protein Coronavirus (PCR) Crossmatch 07/12/20 07/13/20 07/13/20 17:53 00:18 04:53 WBC RBC 2.86 L Hgb 8.4 L Hct 25.7 L MCHC RDW 16.8 H Lymph % (Auto) [place] % (Auto) Eos % (Auto) Lymph # [place] # Lymph # (Auto) [place] # (Auto) Seg Neutrophils % Seg Neuts % (Manual) 84.0 H Lymphocytes % (Manual) 7.0 L Seg Neutrophils # Seg Neutrophils # Man Lymphocytes # (Manual) 0.6 L Monocytes % (Manual) Eosinophils % (Manual) Monocytes # (Manual) Eosinophils # (Manual) D-Dimer Heparin Anti-Xa Level ABG pH POC ABG pCO2 POC ABG pO2 ABG pO2 ABG HCO3 ABG O2 Saturation ABG Base Excess ABG Hemoglobin ABG Oxyhemoglobin VBG pH ABG Sodium ABG Potassium ABG Glucose Oxyhemoglobin Sodium Potassium Chloride Carbon Dioxide BUN Creatinine Glucose POC Glucose 155 H 162 H Lactic Acid Calcium Ferritin AST Alkaline Phosphatase Magnesium Lactate Dehydrogenase Total Creatine Kinase CK-MB (CK-2) C-Reactive Protein Total Protein Albumin Troponin T HDL Cholesterol Arterial Blood Glucose Urine WBC (Auto) Urine Creatinine Urine Total Protein Coronavirus (PCR) Crossmatch 07/13/20 07/13/20 07/13/20 04:53 06:14 12:50 WBC RBC Hgb Hct MCHC RDW Lymph % (Auto) [place] % (Auto) Eos % (Auto) Lymph # [place] # Lymph # (Auto) [place] # (Auto) Seg Neutrophils % Seg Neuts % (Manual) Lymphocytes % (Manual) Seg Neutrophils # Seg Neutrophils # Man Lymphocytes # (Manual) Monocytes % (Manual) Eosinophils % (Manual) Monocytes # (Manual) Eosinophils # (Manual) D-Dimer Heparin Anti-Xa Level ABG pH POC ABG pCO2 POC ABG pO2 ABG pO2 ABG HCO3 ABG O2 Saturation ABG Base Excess ABG Hemoglobin ABG Oxyhemoglobin VBG pH ABG Sodium ABG Potassium ABG Glucose Oxyhemoglobin Sodium 136 L Potassium Chloride Carbon Dioxide BUN 78 H Creatinine 2.0 H Glucose 130 H POC Glucose 141 H 146 H Lactic Acid Calcium Ferritin AST Alkaline Phosphatase Magnesium Lactate Dehydrogenase Total Creatine Kinase CK-MB (CK-2) C-Reactive Protein Total Protein Albumin Troponin T HDL Cholesterol Arterial Blood Glucose Urine WBC (Auto) Urine Creatinine Urine Total Protein Coronavirus (PCR) Crossmatch 07/13/20 07/14/20 07/14/20 18:27 00:22 05:43 WBC RBC Hgb Hct MCHC RDW Lymph % (Auto) [place] % (Auto) Eos % (Auto) Lymph # [place] # Lymph # (Auto) [place] # (Auto) Seg Neutrophils % Seg Neuts % (Manual) Lymphocytes % (Manual) Seg Neutrophils # Seg Neutrophils # Man Lymphocytes # (Manual) Monocytes % (Manual) Eosinophils % (Manual) Monocytes # (Manual) Eosinophils # (Manual) D-Dimer Heparin Anti-Xa Level ABG pH POC ABG pCO2 POC ABG pO2 ABG pO2 ABG HCO3 ABG O2 Saturation ABG Base Excess ABG Hemoglobin ABG Oxyhemoglobin VBG pH ABG Sodium ABG Potassium ABG Glucose Oxyhemoglobin Sodium Potassium Chloride Carbon Dioxide BUN Creatinine Glucose POC Glucose 149 H 157 H 169 H Lactic Acid Calcium Ferritin AST Alkaline Phosphatase Magnesium Lactate Dehydrogenase Total Creatine Kinase CK-MB (CK-2) C-Reactive Protein Total Protein Albumin Troponin T HDL Cholesterol Arterial Blood Glucose Urine WBC (Auto) Urine Creatinine Urine Total Protein Coronavirus (PCR) Crossmatch 07/14/20 07/14/20 07/14/20 08:04 12:12 17:23 WBC RBC Hgb Hct MCHC RDW Lymph % (Auto) [place] % (Auto) Eos % (Auto) Lymph # [place] # Lymph # (Auto) [place] # (Auto) Seg Neutrophils % Seg Neuts % (Manual) Lymphocytes % (Manual) Seg Neutrophils # Seg Neutrophils # Man Lymphocytes # (Manual) Monocytes % (Manual) Eosinophils % (Manual) Monocytes # (Manual) Eosinophils # (Manual) D-Dimer Heparin Anti-Xa Level ABG pH POC ABG pCO2 POC ABG pO2 ABG pO2 ABG HCO3 ABG O2 Saturation ABG Base Excess ABG Hemoglobin ABG Oxyhemoglobin VBG pH ABG Sodium ABG Potassium ABG Glucose Oxyhemoglobin Sodium Potassium Chloride Carbon Dioxide BUN Creatinine Glucose POC Glucose 185 H 138 H Lactic Acid Calcium Ferritin AST Alkaline Phosphatase Magnesium Lactate Dehydrogenase Total Creatine Kinase CK-MB (CK-2) C-Reactive Protein Total Protein Albumin Troponin T HDL Cholesterol Arterial Blood Glucose Urine WBC (Auto) Urine Creatinine Urine Total Protein Coronavirus (PCR) Positive A Crossmatch 07/15/20 07/15/20 07/15/20 00:04 06:06 12:00 WBC RBC Hgb Hct MCHC RDW Lymph % (Auto) [place] % (Auto) Eos % (Auto) Lymph # [place] # Lymph # (Auto) [place] # (Auto) Seg Neutrophils % Seg Neuts % (Manual) Lymphocytes % (Manual) Seg Neutrophils # Seg Neutrophils # Man Lymphocytes # (Manual) Monocytes % (Manual) Eosinophils % (Manual) Monocytes # (Manual) Eosinophils # (Manual) D-Dimer Heparin Anti-Xa Level ABG pH POC ABG pCO2 POC ABG pO2 ABG pO2 ABG HCO3 ABG O2 Saturation ABG Base Excess ABG Hemoglobin ABG Oxyhemoglobin VBG pH ABG Sodium ABG Potassium ABG Glucose Oxyhemoglobin Sodium Potassium Chloride Carbon Dioxide BUN Creatinine Glucose POC Glucose 121 H 140 H 137 H Lactic Acid Calcium Ferritin AST Alkaline Phosphatase Magnesium Lactate Dehydrogenase Total Creatine Kinase CK-MB (CK-2) C-Reactive Protein Total Protein Albumin Troponin T HDL Cholesterol Arterial Blood Glucose Urine WBC (Auto) Urine Creatinine Urine Total Protein Coronavirus (PCR) Crossmatch 07/15/20 07/15/20 07/16/20 17:53 23:53 05:26 WBC RBC Hgb Hct MCHC RDW Lymph % (Auto) [place] % (Auto) Eos % (Auto) Lymph # [place] # Lymph # (Auto) [place] # (Auto) Seg Neutrophils % Seg Neuts % (Manual) Lymphocytes % (Manual) Seg Neutrophils # Seg Neutrophils # Man Lymphocytes # (Manual) Monocytes % (Manual) Eosinophils % (Manual) Monocytes # (Manual) Eosinophils # (Manual) D-Dimer Heparin Anti-Xa Level ABG pH POC ABG pCO2 POC ABG pO2 ABG pO2 ABG HCO3 ABG O2 Saturation ABG Base Excess ABG Hemoglobin ABG Oxyhemoglobin VBG pH ABG Sodium ABG Potassium ABG Glucose Oxyhemoglobin Sodium Potassium Chloride Carbon Dioxide BUN Creatinine Glucose POC Glucose 161 H 156 H 152 H Lactic Acid Calcium Ferritin AST Alkaline Phosphatase Magnesium Lactate Dehydrogenase Total Creatine Kinase CK-MB (CK-2) C-Reactive Protein Total Protein Albumin Troponin T HDL Cholesterol Arterial Blood Glucose Urine WBC (Auto) Urine Creatinine Urine Total Protein Coronavirus (PCR) Crossmatch 07/16/20 07/17/20 07/17/20 17:44 00:07 12:06 WBC RBC Hgb Hct MCHC RDW Lymph % (Auto) [place] % (Auto) Eos % (Auto) Lymph # [place] # Lymph # (Auto) [place] # (Auto) Seg Neutrophils % Seg Neuts % (Manual) Lymphocytes % (Manual) Seg Neutrophils # Seg Neutrophils # Man Lymphocytes # (Manual) Monocytes % (Manual) Eosinophils % (Manual) Monocytes # (Manual) Eosinophils # (Manual) D-Dimer Heparin Anti-Xa Level ABG pH POC ABG pCO2 POC ABG pO2 ABG pO2 ABG HCO3 ABG O2 Saturation ABG Base Excess ABG Hemoglobin ABG Oxyhemoglobin VBG pH ABG Sodium ABG Potassium ABG Glucose Oxyhemoglobin Sodium Potassium Chloride Carbon Dioxide BUN Creatinine Glucose POC Glucose 126 H 189 H 155 H Lactic Acid Calcium Ferritin AST Alkaline Phosphatase Magnesium Lactate Dehydrogenase Total Creatine Kinase CK-MB (CK-2) C-Reactive Protein Total Protein Albumin Troponin T HDL Cholesterol Arterial Blood Glucose Urine WBC (Auto) Urine Creatinine Urine Total Protein Coronavirus (PCR) Crossmatch 07/17/20 07/17/20 07/18/20 18:20 23:25 04:24 WBC RBC Hgb Hct MCHC RDW Lymph % (Auto) [place] % (Auto) Eos % (Auto) Lymph # [place] # Lymph # (Auto) [place] # (Auto) Seg Neutrophils % Seg Neuts % (Manual) Lymphocytes % (Manual) Seg Neutrophils # Seg Neutrophils # Man Lymphocytes # (Manual) Monocytes % (Manual) Eosinophils % (Manual) Monocytes # (Manual) Eosinophils # (Manual) D-Dimer Heparin Anti-Xa Level ABG pH POC ABG pCO2 POC ABG pO2 ABG pO2 ABG HCO3 ABG O2 Saturation ABG Base Excess ABG Hemoglobin 8.8 L ABG Oxyhemoglobin VBG pH ABG Sodium 131.6 L ABG Potassium 4.9 H ABG Glucose 131 H Oxyhemoglobin Sodium Potassium Chloride Carbon Dioxide BUN Creatinine Glucose POC Glucose 206 H 161 H Lactic Acid Calcium Ferritin AST Alkaline Phosphatase Magnesium Lactate Dehydrogenase Total Creatine Kinase CK-MB (CK-2) C-Reactive Protein Total Protein Albumin Troponin T HDL Cholesterol Arterial Blood Glucose 131 H Urine WBC (Auto) Urine Creatinine Urine Total Protein Coronavirus (PCR) Crossmatch 07/18/20 07/18/20 07/18/20 05:16 11:53 18:11 WBC RBC Hgb Hct MCHC RDW Lymph % (Auto) [place] % (Auto) Eos % (Auto) Lymph # [place] # Lymph # (Auto) [place] # (Auto) Seg Neutrophils % Seg Neuts % (Manual) Lymphocytes % (Manual) Seg Neutrophils # Seg Neutrophils # Man Lymphocytes # (Manual) Monocytes % (Manual) Eosinophils % (Manual) Monocytes # (Manual) Eosinophils # (Manual) D-Dimer Heparin Anti-Xa Level ABG pH POC ABG pCO2 POC ABG pO2 ABG pO2 ABG HCO3 ABG O2 Saturation ABG Base Excess ABG Hemoglobin ABG Oxyhemoglobin VBG pH ABG Sodium ABG Potassium ABG Glucose Oxyhemoglobin Sodium Potassium Chloride Carbon Dioxide BUN Creatinine Glucose POC Glucose 140 H 176 H 143 H Lactic Acid Calcium Ferritin AST Alkaline Phosphatase Magnesium Lactate Dehydrogenase Total Creatine Kinase CK-MB (CK-2) C-Reactive Protein Total Protein Albumin Troponin T HDL Cholesterol Arterial Blood Glucose Urine WBC (Auto) Urine Creatinine Urine Total Protein Coronavirus (PCR) Crossmatch 07/18/20 07/19/20 07/19/20 23:51 01:05 01:05 WBC RBC 2.76 L Hgb 7.9 L Hct 24.5 L MCHC RDW 17.6 H Lymph % (Auto) 11.6 L [place] % (Auto) 13.1 H Eos % (Auto) Lymph # [place] # Lymph # (Auto) 1.0 L [place] # (Auto) 1.1 H Seg Neutrophils % 70.9 H Seg Neuts % (Manual) Lymphocytes % (Manual) Seg Neutrophils # Seg Neutrophils # Man Lymphocytes # (Manual) Monocytes % (Manual) Eosinophils % (Manual) Monocytes # (Manual) Eosinophils # (Manual) D-Dimer Heparin Anti-Xa Level ABG pH POC ABG pCO2 POC ABG pO2 ABG pO2 ABG HCO3 ABG O2 Saturation ABG Base Excess ABG Hemoglobin ABG Oxyhemoglobin VBG pH ABG Sodium ABG Potassium ABG Glucose Oxyhemoglobin Sodium Potassium Chloride Carbon Dioxide BUN 86 H Creatinine 1.7 H Glucose 149 H POC Glucose 159 H Lactic Acid Calcium Ferritin AST Alkaline Phosphatase Magnesium Lactate Dehydrogenase Total Creatine Kinase CK-MB (CK-2) C-Reactive Protein Total Protein Albumin Troponin T HDL Cholesterol Arterial Blood Glucose Urine WBC (Auto) Urine Creatinine Urine Total Protein Coronavirus (PCR) Crossmatch 07/19/20 07/19/20 07/19/20 05:54 12:46 17:48 WBC RBC Hgb Hct MCHC RDW Lymph % (Auto) [place] % (Auto) Eos % (Auto) Lymph # [place] # Lymph # (Auto) [place] # (Auto) Seg Neutrophils % Seg Neuts % (Manual) Lymphocytes % (Manual) Seg Neutrophils # Seg Neutrophils # Man Lymphocytes # (Manual) Monocytes % (Manual) Eosinophils % (Manual) Monocytes # (Manual) Eosinophils # (Manual) D-Dimer Heparin Anti-Xa Level ABG pH POC ABG pCO2 POC ABG pO2 ABG pO2 ABG HCO3 ABG O2 Saturation ABG Base Excess ABG Hemoglobin ABG Oxyhemoglobin VBG pH ABG Sodium ABG Potassium ABG Glucose Oxyhemoglobin Sodium Potassium Chloride Carbon Dioxide BUN Creatinine Glucose POC Glucose 176 H 127 H 123 H Lactic Acid Calcium Ferritin AST Alkaline Phosphatase Magnesium Lactate Dehydrogenase Total Creatine Kinase CK-MB (CK-2) C-Reactive Protein Total Protein Albumin Troponin T HDL Cholesterol Arterial Blood Glucose Urine WBC (Auto) Urine Creatinine Urine Total Protein Coronavirus (PCR) Crossmatch 07/20/20 07/20/20 07/20/20 00:34 05:28 12:10 WBC RBC Hgb Hct MCHC RDW Lymph % (Auto) [place] % (Auto) Eos % (Auto) Lymph # [place] # Lymph # (Auto) [place] # (Auto) Seg Neutrophils % Seg Neuts % (Manual) Lymphocytes % (Manual) Seg Neutrophils # Seg Neutrophils # Man Lymphocytes # (Manual) Monocytes % (Manual) Eosinophils % (Manual) Monocytes # (Manual) Eosinophils # (Manual) D-Dimer Heparin Anti-Xa Level ABG pH POC ABG pCO2 POC ABG pO2 ABG pO2 ABG HCO3 ABG O2 Saturation ABG Base Excess ABG Hemoglobin ABG Oxyhemoglobin VBG pH ABG Sodium ABG Potassium ABG Glucose Oxyhemoglobin Sodium Potassium Chloride Carbon Dioxide BUN Creatinine Glucose POC Glucose 147 H 110 H 149 H Lactic Acid Calcium Ferritin AST Alkaline Phosphatase Magnesium Lactate Dehydrogenase Total Creatine Kinase CK-MB (CK-2) C-Reactive Protein Total Protein Albumin Troponin T HDL Cholesterol Arterial Blood Glucose Urine WBC (Auto) Urine Creatinine Urine Total Protein Coronavirus (PCR) Crossmatch 07/20/20 07/21/20 07/21/20 17:00 00:11 05:30 WBC RBC Hgb Hct MCHC RDW Lymph % (Auto) [place] % (Auto) Eos % (Auto) Lymph # [place] # Lymph # (Auto) [place] # (Auto) Seg Neutrophils % Seg Neuts % (Manual) Lymphocytes % (Manual) Seg Neutrophils # Seg Neutrophils # Man Lymphocytes # (Manual) Monocytes % (Manual) Eosinophils % (Manual) Monocytes # (Manual) Eosinophils # (Manual) D-Dimer Heparin Anti-Xa Level ABG pH POC ABG pCO2 POC ABG pO2 ABG pO2 ABG HCO3 ABG O2 Saturation ABG Base Excess ABG Hemoglobin ABG Oxyhemoglobin VBG pH ABG Sodium ABG Potassium ABG Glucose Oxyhemoglobin Sodium Potassium Chloride Carbon Dioxide BUN Creatinine Glucose POC Glucose 173 H 128 H 153 H Lactic Acid Calcium Ferritin AST Alkaline Phosphatase Magnesium Lactate Dehydrogenase Total Creatine Kinase CK-MB (CK-2) C-Reactive Protein Total Protein Albumin Troponin T HDL Cholesterol Arterial Blood Glucose Urine WBC (Auto) Urine Creatinine Urine Total Protein Coronavirus (PCR) Crossmatch 07/21/20 07/21/20 07/22/20 12:21 18:17 00:45 WBC RBC Hgb Hct MCHC RDW Lymph % (Auto) [place] % (Auto) Eos % (Auto) Lymph # [place] # Lymph # (Auto) [place] # (Auto) Seg Neutrophils % Seg Neuts % (Manual) Lymphocytes % (Manual) Seg Neutrophils # Seg Neutrophils # Man Lymphocytes # (Manual) Monocytes % (Manual) Eosinophils % (Manual) Monocytes # (Manual) Eosinophils # (Manual) D-Dimer Heparin Anti-Xa Level ABG pH POC ABG pCO2 POC ABG pO2 ABG pO2 ABG HCO3 ABG O2 Saturation ABG Base Excess ABG Hemoglobin ABG Oxyhemoglobin VBG pH ABG Sodium ABG Potassium ABG Glucose Oxyhemoglobin Sodium Potassium Chloride Carbon Dioxide BUN Creatinine Glucose POC Glucose 144 H 160 H 128 H Lactic Acid Calcium Ferritin AST Alkaline Phosphatase Magnesium Lactate Dehydrogenase Total Creatine Kinase CK-MB (CK-2) C-Reactive Protein Total Protein Albumin Troponin T HDL Cholesterol Arterial Blood Glucose Urine WBC (Auto) Urine Creatinine Urine Total Protein Coronavirus (PCR) Crossmatch 07/22/20 05:52 WBC RBC Hgb Hct MCHC RDW Lymph % (Auto) [place] % (Auto) Eos % (Auto) Lymph # [place] # Lymph # (Auto) [place] # (Auto) Seg Neutrophils % Seg Neuts % (Manual) Lymphocytes % (Manual) Seg Neutrophils # Seg Neutrophils # Man Lymphocytes # (Manual) Monocytes % (Manual) Eosinophils % (Manual) Monocytes # (Manual) Eosinophils # (Manual) D-Dimer Heparin Anti-Xa Level ABG pH POC ABG pCO2 POC ABG pO2 ABG pO2 ABG HCO3 ABG O2 Saturation ABG Base Excess ABG Hemoglobin ABG Oxyhemoglobin VBG pH ABG Sodium ABG Potassium ABG Glucose Oxyhemoglobin Sodium Potassium Chloride Carbon Dioxide BUN Creatinine Glucose POC Glucose 126 H Lactic Acid Calcium Ferritin AST Alkaline Phosphatase Magnesium Lactate Dehydrogenase Total Creatine Kinase CK-MB (CK-2) C-Reactive Protein Total Protein Albumin Troponin T HDL Cholesterol Arterial Blood Glucose Urine WBC (Auto) Urine Creatinine Urine Total Protein Coronavirus (PCR) Crossmatch Chest x-ray: pending Allied health notes reviewed: nursing
--- NOTE | 2020-07-22 19:21 | Progress Note ---
Assessment and Plan Assessment and plan: 05/28/2020 COVID-19 test positive 06/29/2020 COVID-19 test positive 07/14/2020 COVID-19 test positive --Acute hypoxemic respiratory failure; vent dependent intubated on admission, extubated on 06/12/20 then placed on high flow o2 patient developed another respiratory arrest on 06/26 - reintubated Patient not tolerating weaning parameters CC following, Surgery evaluated the patient for trach and PEG COVID-19 test positive x3, trach and PEG pending neuro evaluation -- Hypertension; uncontrolled Increase hydralazine dose to 75 mg 3 times a day Continue amlodipine, coreg, clonidine and hydralazine And minoxidil, closely monitor blood pressures PRN labetalol --s/p cardiopulmonary arrest on admission, 06/26 and 07/01, s/p CPR per ACLS protocol, refer to code sheet --Possible anoxic brain injury, neurology consulted, neuro requested MRI brain, EEG MRI brain could not be done due to body habitus, EEG not done --Seizures seizure precautions;, continue Keppra, neurology following --Acute renal failure : creatinine 2.4-2.5-2.9-1.7 Vasomotor nephropathy, gentle hydration Avoid nephrotoxins, monitor renal function Reconsult nephrology if needed --Rectal bleeding; resolved --Acute blood loss anemia; total 3 units PRBC transfused Closely monitor H&H, GI following, no plans of endoscopy --Severe sepsis; completed antibiotics per ID persistently positive for COVID-19 and Klebsiella pneumoniae --COVID-19 b/l PNA Completed remdesivir on 06/02 Completed dexamethasone - Last dose 06/07 COVID 19 test positive x 3 during this admission --Superficial left cephalic vein DVT/elevated D-dimers[COVID 19] Patient initially started on heparin drip from 05/29/20 D-dimers improved [phone] treated with Eliquis 5 mg twice a day for 1 week[per ID] stop date 06/26/2020 -- Acute toxic metabolic encephalopathy, POA likely from sepsis and s/p cardiac arrest with possible anoxic injury -- Acute renal failure: likely ATN avoid nephrotoxins, reconsult nephrology if no improvement --Klebsiella pneumonia: ID evaluated completed second round of 5 days of cefepime on 07/04/2020 --Acute on chronic systolic heart failure Cardiology following. Ef 45% -- Coffee ground emesis -Stress ulcers Possible stress ulcers, On PPI H/H again dropped - transfuse GI evaluated --Transaminitis. Etiology likely from COVID-19. cont to monitor -- DVT prophylaxis Eliquis, SCD to bilateral lower extremities while in bed -- Advance care planning Patient is critically ill with multiple medical problems Poor prognosis, family updated and requesting full code The high probability of a clinically significant, sudden or life threatening deterioration of the [CVS, renal, respiratory, [employer]] system(s) required my full and direct attention, intervention and personal management. The aggregate critical care time was [31] minutes. This time is in addition to time spent performing reported procedures but includes the following: [x] Data Review and interpretation [x] Patient assessment and monitoring of vital signs [x] Documentation [x] Medication orders and management 07/11/2020. Patient currently on mechanical ventilation AC/PRVC with rate of 12, tidal volume 450, FiO2 30% and PEEP of 6 07/12/2020. Patient placed on CPAP with pressure support of 10 and tolerating well. Continue PSB trials as tolerated. 07/13/2020. Patient currently with AC mode rate 12, tidal volume 450, FiO2 30% and PEEP of 6. Surgery has been consulted for trach and PEG placement. Recall nephrology for renal insufficiency. 07/14/20; surgery evaluated for trach and PEG , pending call with test which is is positive today COVID-19 test positive x3 since admission 07/16; trach and PEG pending neuro evaluation 07/17; vent dependent, trach PEG pending neuro evaluation, pending MRI EEG study[already ordered] 07/18; unable to do MRI, due to body habitus, morbid obesity, radiology consult Patient critically ill very poor prognosis 07/19; remains intubated on vent, clinically no change 07/20; unable to wean, needs trach and PEG, need MRI , unable to do due to body habitus 07/21; clinically no change, remains intubated on ventilatory support 07/22; I recommend family meeting, to discuss the goals of treatment, discussed with case management History Interval history: I have seen and examined the patient this morning in ICU at the bedside Isolation precautions, PPE protocols strictly followed Patient remains intubated on ventilatory support Noncommunicative Clinically no change Vital signs reviewed Hospitalist Physical - Constitutional Vitals: Temp Pulse Resp BP Pulse Ox 98.7 F 68 15 144/57 97 07/22/20 12:00 07/22/20 18:00 07/22/20 18:00 07/22/20 18:00 07/22/20 18:00 General appearance: Present: no acute distress, well-nourished, obese (Morbidly obese), other (Intubated on ventilatory support) - EENT Eyes: Present: PERRL, EOM intact - Neck Neck: Present: supple, normal ROM - Respiratory Respiratory effort: normal Respiratory: bilateral: diminished, rhonchi, negative: rales, wheezing - Cardiovascular Rhythm: regular Heart Sounds: Present: S1 & S2 - Extremities Extremities: no ischemia, No edema - Abdominal General gastrointestinal: soft, non-tender, non-distended, normal bowel sounds - Integumentary Integumentary: Present: clear, warm - Psychiatric Psychiatric: other (Intubated on vent) - Neurologic Neurologic: other (Unresponsive intubated on vent) HEART Score - HEART Score Troponin: Troponin T 0.067 ng/mL (0.00-0.029) H 07/01/20 06:01 Results - Labs CBC & Chem 7: 07/19/20 01:05 07/19/20 01:05 Labs: Laboratory Last Values WBC 8.4 K/mm3 (4.5-11.0) 07/19/20 01:05 RBC 2.76 M/mm3 (3.65-5.03) L 07/19/20 01:05 Hgb 7.9 gm/dl (10.1-14.3) L 07/19/20 01:05 Hct 24.5 % (30.3-42.9) L 07/19/20 01:05 MCV 89 fl (79-97) 07/19/20 01:05 MCH 29 pg (28-32) 07/19/20 01:05 MCHC 32 % (30-34) 07/19/20 01:05 RDW 17.6 % (13.2-15.2) H 07/19/20 01:05 Plt Count 312 K/mm3 (140-440) 07/19/20 01:05 Lymph % (Auto) 11.6 % (13.4-35.0) L 07/19/20 01:05 Menard % (Auto) 13.1 % (0.0-7.3) H 07/19/20 01:05 Eos % (Auto) 3.7 % (0.0-4.3) 07/19/20 01:05 Baso % (Auto) 0.7 % (0.0-1.8) 07/19/20 01:05 Lymph # (Auto) 1.0 K/mm3 (1.2-5.4) L 07/19/20 01:05 Menard # (Auto) 1.1 K/mm3 (0.0-0.8) H 07/19/20 01:05 Eos # (Auto) 0.3 K/mm3 (0.0-0.4) 07/19/20 01:05 Baso # (Auto) 0.1 K/mm3 (0.0-0.1) 07/19/20 01:05 Add Manual Diff Complete 07/13/20 04:53 Total Counted 100 07/13/20 04:53 Seg Neutrophils % 70.9 % (40.0-70.0) H 07/19/20 01:05 Seg Neuts % (Manual) 84.0 % (40.0-70.0) H 07/13/20 04:53 Band Neutrophils % 1.0 % 07/13/20 04:53 Lymphocytes % (Manual) 7.0 % (13.4-35.0) L 07/13/20 04:53 Reactive Lymphs % (Man) 0 % 07/13/20 04:53 Monocytes % (Manual) 5.0 % (0.0-7.3) 07/13/20 04:53 Eosinophils % (Manual) 1.0 % (0.0-4.3) 07/13/20 04:53 Basophils % (Manual) 0 % (0.0-1.8) 07/13/20 04:53 Metamyelocytes % 2.0 % 07/13/20 04:53 Myelocytes % 0 % 07/13/20 04:53 Promyelocytes % 0 % 07/13/20 04:53 Blast Cells % 0 % 07/13/20 04:53 Nucleated RBC % Not Reportable 07/13/20 04:53 Seg Neutrophils # 5.9 K/mm3 (1.8-7.7) 07/19/20 01:05 Seg Neutrophils # Man 7.1 K/mm3 (1.8-7.7) 07/13/20 04:53 Band Neutrophils # 0.1 K/mm3 07/13/20 04:53 Lymphocytes # (Manual) 0.6 K/mm3 (1.2-5.4) L 07/13/20 04:53 Abs React Lymphs (Man) 0.0 K/mm3 07/13/20 04:53 Monocytes # (Manual) 0.4 K/mm3 (0.0-0.8) 07/13/20 04:53 Eosinophils # (Manual) 0.1 K/mm3 (0.0-0.4) 07/13/20 04:53 Basophils # (Manual) 0.0 K/mm3 (0.0-0.1) 07/13/20 04:53 Metamyelocytes # 0.2 K/mm3 07/13/20 04:53 Myelocytes # 0.0 K/mm3 07/13/20 04:53 Promyelocytes # 0.0 K/mm3 07/13/20 04:53 Blast Cells # 0.0 K/mm3 07/13/20 04:53 WBC Morphology Not Reportable 07/13/20 04:53 Hypersegmented Neuts Not Reportable 07/13/20 04:53 Hyposegmented Neuts Not Reportable 07/13/20 04:53 Hypogranular Neuts Not Reportable 07/13/20 04:53 Smudge Cells Not Reportable 07/13/20 04:53 Toxic Granulation Not Reportable 07/13/20 04:53 Toxic Vacuolation Not Reportable 07/13/20 04:53 Dohle Bodies Not Reportable 07/13/20 04:53 Pelger-Huet Anomaly Not Reportable 07/13/20 04:53 Sanjuanita Rods Not Reportable 07/13/20 04:53 Platelet Estimate Consistent w auto 07/13/20 04:53 Clumped Platelets Not Reportable 07/13/20 04:53 Plt Clumps, EDTA Not Reportable 07/13/20 04:53 Large Platelets Not Reportable 07/13/20 04:53 Giant Platelets Not Reportable 07/13/20 04:53 Platelet Satelliting Not Reportable 07/13/20 04:53 Plt Morphology Comment Not Reportable 07/13/20 04:53 RBC Morphology Not Reportable 07/13/20 04:53 Dimorphic RBCs Not Reportable 07/13/20 04:53 Polychromasia Not Reportable 07/13/20 04:53 Hypochromasia Not Reportable 07/13/20 04:53 Poikilocytosis Not Reportable 07/13/20 04:53 Anisocytosis 1+ 07/13/20 04:53 Microcytosis Not Reportable 07/13/20 04:53 Macrocytosis Not Reportable 07/13/20 04:53 Spherocytes Not Reportable 07/13/20 04:53 Pappenheimer Bodies Not Reportable 07/13/20 04:53 Sickle Cells Not Reportable 07/13/20 04:53 Target Cells Not Reportable 07/13/20 04:53 Tear Drop Cells Not Reportable 07/13/20 04:53 Ovalocytes Not Reportable 07/13/20 04:53 Helmet Cells Not Reportable 07/13/20 04:53 [employer] Bodies Not Reportable 07/13/20 04:53 Baring Rings Not Reportable 07/13/20 04:53 Julia Cells Not Reportable 07/13/20 04:53 Bite Cells Not Reportable 07/13/20 04:53 Crenated Cell Not Reportable 07/13/20 04:53 Elliptocytes Not Reportable 07/13/20 04:53 Acanthocytes (Spur) Not Reportable 07/13/20 04:53 Rouleaux Not Reportable 07/13/20 04:53 Hemoglobin C Crystals Not Reportable 07/13/20 04:53 Schistocytes Not Reportable 07/13/20 04:53 Malaria parasites Not Reportable 07/13/20 04:53 Kev Bodies Not Reportable 07/13/20 04:53 Hem Pathologist Commnt No 07/13/20 04:53 PT 14.2 Sec. (12.2-14.9) 05/29/20 15:10 INR 1.08 (0.87-1.13) 05/29/20 15:10 APTT 27.2 Sec. (24.2-36.6) 05/29/20 15:10 D-Dimer 2310.15 ng/mlDDU (0-234) H 06/29/20 14:45 Heparin Anti-Xa Level 0.34 U.I./ml (0.3-0.7) 06/19/20 10:46 ABG pH 7.382 (7.320-7.450) 07/18/20 04:24 POC ABG pCO2 44.1 mmHg (32.0-48.0) 07/18/20 04:24 ABG pCO2 47.0 mm Hg 07/05/20 13:05 ABG Oxyhemoglobin 92.6 (94-98) L 06/23/20 12:34 POC ABG pO2 86.8 mmHg (83-108) 07/18/20 04:24 ABG pO2 78.3 mm Hg (80.0-90.0) L 07/05/20 13:05 POC ABG HCO3 25.6 07/18/20 04:24 ABG HCO3 23.4 mmol/L (20.0-26.0) 07/05/20 13:05 ABG O2 Saturation 96.1 % (95.0-99.0) 07/05/20 13:05 ABG O2 Content 0.3 (0.0-44) 07/05/20 13:05 POC ABG Base Excess 0.4 07/18/20 04:24 ABG Base Excess -2.6 mmol/L (-2.0-3.0) L 07/05/20 13:05 ABG Hemoglobin 8.8 (12.0-17.5) L 07/18/20 04:24 ABG Carboxyhemoglobin 1.7 % (0.0-5.0) 07/05/20 13:05 ABG Methemoglobin 0.2 % (0.0-1.5) 07/05/20 13:05 VBG pH 7.152 (7.320-7.420) L* 05/28/20 13:47 ABG Sodium 131.6 mmol/L (136.0-145.0) L 07/18/20 04:24 ABG Potassium 4.9 mmol/L (3.40-4.50) H 07/18/20 04:24 ABG Chloride 104.0 mmol/L (98-107) 07/18/20 04:24 ABG Glucose 131 mg/dL (65-95) H 07/18/20 04:24 Carboxyhemoglobin 0.5 (0.5-1.5) 06/23/20 12:34 Oxyhemoglobin 97.4 % (95.0-99.0) 07/05/20 13:05 FiO2 30.0 07/18/20 04:24 Sodium 137 mmol/L (137-145) 07/19/20 01:05 Potassium 4.9 mmol/L (3.6-5.0) 07/19/20 01:05 Chloride 101.6 mmol/L (98-107) 07/19/20 01:05 Carbon Dioxide 22 mmol/L (22-30) 07/19/20 01:05 Anion Gap 18 mmol/L 07/19/20 01:05 BUN 86 mg/dL (7-17) H 07/19/20 01:05 Creatinine 1.7 mg/dL (0.6-1.2) H 07/19/20 01:05 Estimated GFR 30 ml/min 07/19/20 01:05 BUN/Creatinine Ratio 51 % 07/19/20 01:05 Glucose 149 mg/dL (65-100) H 07/19/20 01:05 POC Glucose 152 (70-105) H 07/22/20 18:23 Lactic Acid 0.60 mmol/L (0.7-2.0) L 06/27/20 05:00 Calcium 8.8 mg/dL (8.4-10.2) 07/19/20 01:05 Ferritin 223.6 ng/mL (10.0-200.0) H 06/29/20 14:45 Magnesium 2.50 mg/dL (1.7-2.3) H 07/08/20 04:14 Lactate Dehydrogenase 367 units/L (91-180) H 06/29/20 14:45 Total Bilirubin < 0.20 mg/dL (0.1-1.2) 07/10/20 10:41 AST 25 units/L (5-40) 07/10/20 10:41 ALT 11 units/L (7-56) 07/10/20 10:41 Alkaline Phosphatase 131 units/L (35-129) H 07/10/20 10:41 C-Reactive Protein 3.60 mg/dL (0.00-1.30) H 06/29/20 14:45 Total Creatine Kinase 300 units/L (30-135) H 07/01/20 06:01 CK-MB (CK-2) 2.0 ng/mL (0.0-4.0) 07/01/20 06:01 CK-MB (CK-2) Rel Index 0.6 (0-4) 07/01/20 06:01 Troponin T 0.067 ng/mL (0.00-0.029) H 07/01/20 06:01 Total Protein 5.2 g/dL (6.3-8.2) L 07/10/20 10:41 Albumin 1.6 g/dL (3.9-5) L 07/10/20 10:41 Albumin/Globulin Ratio 0.4 % 07/10/20 10:41 Triglycerides 142 mg/dL (2-149) 07/01/20 06:01 Cholesterol 137 mg/dL (50-199) 07/01/20 06:01 LDL Cholesterol Direct 62 mg/dL (50-130) 07/01/20 06:01 HDL Cholesterol 61 mg/dL (40-59) H 07/01/20 06:01 Cholesterol/HDL Ratio 2.24 % 07/01/20 06:01 Procalcitonin 0.18 ng/mL (<0.15) 07/14/20 04:55 Arterial Blood Glucose 131 mg/dL (65-95) H 07/18/20 04:24 Arterial Blood Ionized Calcium 5.1 mg/dL (4.6-5.3) 07/18/20 04:24 Urine Color Yellow (Yellow) 06/06/20 04:00 Urine Turbidity Cloudy (Clear) 06/06/20 04:00 Urine pH 5.0 (5.0-7.0) 06/06/20 04:00 Ur Specific [place] 1.012 (1.003-1.030) 06/06/20 04:00 Urine Protein 100 mg/dl mg/dL (Negative) 06/06/20 04:00 Urine Glucose (UA) 50 mg/dL (Negative) 06/06/20 04:00 Urine Ketones Neg mg/dL (Negative) 06/06/20 04:00 Urine Blood Sm (Negative) 06/06/20 04:00 Urine Nitrite Neg (Negative) 06/06/20 04:00 Urine Bilirubin Neg (Negative) 06/06/20 04:00 Urine Urobilinogen < 2.0 mg/dL (<2.0) 06/06/20 04:00 Ur Leukocyte Esterase Neg (Negative) 06/06/20 04:00 Urine WBC (Auto) 15.0 /HPF (0.0-6.0) H 06/06/20 04:00 Urine RBC (Auto) 23.0 /HPF (0.0-6.0) 06/06/20 04:00 U Epithel Cells (Auto) 8.0 /HPF (0-13.0) 06/06/20 04:00 Urine Bacteria (Auto) 2+ /HPF (Negative) 06/06/20 04:00 Amorphous Crystals 1+ 06/06/20 04:00 Hyaline Casts 16 /LPF 06/06/20 04:00 Urine Mucus 2+ /HPF 06/06/20 04:00 Urine Yeast (Budding) 2+ /HPF 06/03/20 Unknown Urine Creatinine 33.3 mg/dL (0.1-20.0) H 07/06/20 13:20 Urine Sodium 21 mmol/L 07/06/20 13:20 Urine Total Protein 196 mg/dL (5-11.8) H 06/06/20 04:00 Nasal Screen MRSA (PCR) Negative (Negative) 06/29/20 08:30 Coronavirus (PCR) Positive (Negative) A 07/14/20 08:04 Blood Type A POSITIVE 07/05/20 02:30 Antibody Screen Negative 07/05/20 02:30 Crossmatch See Detail 07/05/20 02:30 - Diagnostic Impressions Diagnostic Impressions: Echocardiogram Limited Views 05/29/20 13:52 Transthoracic Echocardiogram Indication: Pulm Embolus BP: 169/76 HR: 85 Conclusions *Limited study for RV size post cardiopulmonar arrest. *RV is only slightly dilated, no significant difference from prior echo 05/13/2020. *Global left ventricular systolic function is at the lower limits of normal. *The estimated ejection fraction is 45-50%. *Mild to moderate concentric left ventricular hypertrophy is observed. *The left and right atria are both mild to moderately dilated. Findings Left Ventricle: The left ventricular chamber size is mildly dilated. Mild to moderate concentric left ventricular hypertrophy is observed. Global left ventricular systolic function is at the lower limits of normal. The estimated ejection fraction is 45-50%. Left Atrium: The left atrium is mild to moderately dilated. Right Ventricle: The right ventricle is slightly dilated. Right Atrium: The right atrium is mild to moderately dilated. Aortic Valve: The aortic valve leaflets are moderately thickened. Mitral Valve: There is mitral annular calcification. The mitral valve leaflets are moderately thickened. Tricuspid Valve: The tricuspid valve leaflets are mildly thickened. Pericardium: A trivial pericardial effusion is visualized. NDUM: 05/29/20 1808 Amended Report Transthoracic Echocardiogram Indication: Pulm Embolus BP: 169/76 HR: 85 Conclusions *Limited study for RV size post cardiopulmonary arrest. *RV is only slightly dilated, no significant difference from prior echo 05/13/2020. *Global left ventricular systolic function is at the lower limits of normal. *The estimated ejection fraction is 45-50%. *Mild to moderate concentric left ventricular hypertrophy is observed. *The left and right atria are both mild to moderately dilated. Findings Left Ventricle: The left ventricular chamber size is mildly dilated. Mild to moderate concentric left ventricular hypertrophy is observed. Global left ventricular systolic function is at the lower limits of normal. The estimated ejection fraction is 45-50%. Left Atrium: The left atrium is mild to moderately dilated. Right Ventricle: The right ventricle is slightly dilated. Right Atrium: The right atrium is mild to moderately dilated. Aortic Valve: The aortic valve leaflets are moderately thickened. Mitral Valve: There is mitral annular calcification. The mitral valve leaflets are moderately thickened. Tricuspid Valve: The tricuspid valve leaflets are mildly thickened. Pericardium: A trivial pericardial effusion is visualized. Helm/IV: Voiding Method External Female Catheter IV Catheter Type [Left Wrist] Peripheral IV IV Catheter Type [Left Upper INT / Saline Lock arm] IV Catheter Type [Right CVL Internal Jugular] IV Catheter Type [Right Hand] Peripheral IV IV Catheter Type [Right Wrist] Not found on patient IV Catheter Type [Left Hand] INT / Saline Lock IV Catheter Type [Left INT / Saline Lock Antecubital] IV Catheter Type [Right Peripheral IV Forearm] IV Catheter Type [Left Leg] Intra-osseous Active Medications - Current Medications Current Medications: Generic Name Dose Route Start Last Admin Trade Name Freq PRN Reason Stop Dose Admin Acetaminophen 650 mg 06/09/20 10:57 06/29/20 21:18 Tylenol FEEDTUBE 650 mg Q6H PRN Administration Fever >101 Amlodipine Besylate 10 mg 06/02/20 11:00 07/22/20 10:40 Amlodipine PO 10 mg DAILY NELSON Administration Lipase/Protease/Amylase 1 each 05/29/20 13:39 07/07/20 10:36 Pancreaze 10,500 Unit FEEDTUBE 1 each PRN PRN Administration For Clogged Feeding Tube Carvedilol 25 mg 07/20/20 11:00 07/22/20 10:40 Coreg PO 25 mg Q12HR NELSON Administration Clonidine HCl 0.3 mg 07/20/20 11:00 07/22/20 10:40 Catapres PO 0.3 mg Q8H NELSON Administration Glycopyrrolate 2 mg 06/09/20 14:00 07/22/20 14:47 Glycopyrrolate PO 2 mg TID NELSON Administration Heparin Sodium (Porcine) 5,000 unit 06/30/20 14:00 07/22/20 14:47 Heparin SUB-Q 5,000 unit Q8HR NELSON Administration Hydralazine HCl 100 mg 07/14/20 14:00 07/22/20 14:46 Apresoline PO 100 mg TID NELSON Administration Hydrophilic Ointment 1 applic 05/28/20 13:49 Vaseline Lip Therapy TP Q2HR PRN Dry Lips Insulin Glargine 10 units 06/08/20 22:00 07/21/20 21:09 Lantus SUB-Q 10 units QHS NELSON Administration Insulin Human Lispro 0 unit 05/29/20 18:00 07/22/20 18:31 Humalog SUB-Q 3 unit Q6H NELSON Administration Protocol Labetalol HCl 20 mg 06/03/20 09:00 07/21/20 05:56 Labetalol IV 20 mg Q4H PRN Administration HYPERTENSION Lansoprazole 30 mg 06/05/20 22:00 07/22/20 10:41 Prevacid Solutab FEEDTUBE 30 mg BID NELSON Administration Levetiracetam 1,000 mg 07/21/20 22:00 07/22/20 10:40 Keppra PO 1,000 mg BID NELSON Administration Minoxidil 5 mg 07/21/20 10:00 07/22/20 12:13 Loniten PO Not Given BID [facility] Multi-Ingred Cream/Lotion/Oil/Oint 1 applic 05/28/20 13:49 Artificial Tears Ophth Oint OU Q4HR PRN Dry Eye(s) Ondansetron HCl 4 mg 06/02/20 09:00 06/09/20 16:48 Zofran IV 4 mg Q8H PRN Administration Nausea And Vomiting Senna 17.6 mg 06/03/20 10:00 07/22/20 10:41 Senokot FEEDTUBE 17.6 mg BID NELSON Administration Simple Syrup 15 ml 05/29/20 13:39 Simple Syrup FEEDTUBE PRN PRN Hypoglycemia Simple Syrup 30 ml 05/29/20 13:39 Simple Syrup FEEDTUBE PRN PRN Hypoglycemia Sodium Bicarbonate 325 mg 05/29/20 13:39 07/07/20 10:36 Sodium Bicarbonate FEEDTUBE 325 mg PRN PRN Administration For Clogged Feeding Tube Sodium Chloride 10 ml 05/28/20 22:00 07/22/20 16:00 Sodium Chloride Flush Syringe 10 Ml IV Not Given BID NELSON Sodium Chloride 10 ml 05/28/20 19:08 06/16/20 17:50 Sodium Chloride Flush Syringe 10 Ml IV 10 ml PRN PRN Administration LINE FLUSH Nutrition/Malnutrition Assess - Dietary Evaluation Nutrition/Malnutrition Findings: Nutrition Notes Start: 05/29/20 11:4 5 Freq: Status: Active Protocol: Document 07/20/20 11:28 (Rec: 07/20/20 11:32 [id number]) Nutrition Notes Initial or Follow up Reassessment Current Diagnosis Acute Kidney Injury,Diabetes, Heart Failure,Respiratory Failure Other Pertinent Diagnosis COVID-19 (+), Pulmonary edema, dysphagia Current Diet Nepro at 40 ml/hr Labs/Tests BUN 86 Cr 1.7 Pertinent Medications Reviewed Height 5 ft 6 in Weight 123 kg [place] Body Weight (kg) 59.09 BMI 43.7 Weight Status Morbidly Obese Subjective/Other Information FU for TF tolerance. TF running at goal, pt tolerating . Pt unable to get PEG placed due to COVID test result. Percent of energy/protein needs met: 100%/53% Burn Absent Trauma Absent Current % PO Negligible Minimum of two criteria No physical signs of malnutrition Fluid Accumulation Mild (non-severe) #1 Nutrition Diagnosis Inadequate oral intake Diagnosis Progress(for reassessment Continues documentation) Is patient on ventilator? Yes Is Patient Ambulatory and/or Out of Bed No REE-([place]-St. Jeor-confined to bed) 2172.576 Kcal/Kg value to use for calculation 13 Approximate Energy Requirements Using 1599 kcal/Kg Calculation Used for Recommendations Kcal/kg Additional Notes Protein needs up to 148g (up to 2.5g/kg IBW) Fluid needs 1ml/kcal Nutrition Intervention Change Diet Order: Continue Nutrition Support: Nepro at 40ml/hr Flush 150ml q4h Kcal 1,728 Protein (gm) 78 Fluid (mL) 697 Goal #1 TF tolerance Goal #2 TF to meet at least 65%-70% energy and 80% protein needs Anticipated Discharge Needs: Unable to determine at this time Follow-Up By: 07/27/20 Additional Comments FU for TF tolerance
[2020-07-22] MEDS: INSULIN GLARGINE 100 UNITS/ML SUB-Q SCH (22:31)
[2020-07-23] MEDS: INSULIN LISPRO 100 UNIT/ML VIAL 3 mL SUB-Q SCH ×5 (00:05→23:49)
[2020-07-23] MEDS: cloNIDine 0.2 MG TAB PO SCH ×4 (04:01→18:16)
[2020-07-23] MEDS: HEPARIN 5,000 UNIT/1 ML VIAL SUB-Q SCH ×3 (06:00→23:01)
[2020-07-23] MEDS: hydrALAZINE 100 MG TAB PO SCH ×3 (07:55→23:04)
[2020-07-23] MEDS: GLYCOPYRROLATE 2 MG TAB PO SCH ×3 (07:55→20:08)
--- NOTE | 2020-07-23 08:53 | Progress Note ---
Assessment and Plan Assessment and plan: 05/28/2020 COVID-19 test positive 06/29/2020 COVID-19 test positive 07/14/2020 COVID-19 test positive --Acute hypoxemic respiratory failure; vent dependent intubated on admission, extubated on 06/12/20 then placed on high flow o2 patient developed another respiratory arrest on 06/26 - reintubated Patient not tolerating weaning parameters CC following, Surgery evaluated the patient for trach and PEG COVID-19 test positive x3, trach and PEG pending neuro evaluation to evaluate severity of anoxic brain injury -- Hypertension; well controlled Increase hydralazine dose to 75 mg 3 times a day Continue amlodipine, coreg, clonidine and hydralazine And minoxidil, closely monitor blood pressures PRN labetalol --s/p cardiopulmonary arrest on admission, 06/26 and 07/01, s/p CPR per ACLS protocol, refer to code sheet --Possible anoxic brain injury, neurology consulted, neuro requested MRI brain, EEG MRI brain could not be done due to body habitus, EEG not done --Seizures seizure precautions; continue Keppra, follow EEG neurology following --Acute renal failure : creatinine 2.4-2.5-2.9-1.7 --Acute renal failure : creatinine 2.4-2.5-2.9-1.7 Vasomotor nephropathy, gentle hydration Avoid nephrotoxins, monitor renal function Reconsult nephrology if needed --Rectal bleeding; resolved --Acute blood loss anemia; total 3 units PRBC transfused Closely monitor H&H, GI following, no plans of endoscopy --Severe sepsis; completed antibiotics per ID persistently positive for COVID-19 and Klebsiella pneumoniae --COVID-19 b/l PNA Completed remdesivir on 06/02 Completed dexamethasone - Last dose 06/07 COVID 19 test positive x 3 during this admission --Superficial left cephalic vein DVT/elevated D-dimers[COVID 19] Patient initially started on heparin drip from 05/29/20 D-dimers improved [id number] treated with Eliquis 5 mg twice a day for 1 week[per ID] stop date 06/26/2020 -- Acute toxic metabolic encephalopathy, POA likely from sepsis and s/p cardiac arrest with possible anoxic injury -- Acute renal failure: likely ATN avoid nephrotoxins, reconsult nephrology if no improvement --Klebsiella pneumonia: ID evaluated completed second round of 5 days of cefepime on 07/04/2020 --Acute on chronic systolic heart failure Cardiology following. Ef 45% -- Coffee ground emesis -Stress ulcers Possible stress ulcers, On PPI H/H again dropped - transfuse GI evaluated --Transaminitis. Etiology likely from COVID-19. cont to monitor -- DVT prophylaxis Eliquis, SCD to bilateral lower extremities while in bed -- Advance care planning Patient is critically ill with multiple medical problems Poor prognosis, family updated and requesting full code The high probability of a clinically significant, sudden or life threatening deterioration of the [CVS, renal, respiratory, APPLICATION DESIGN ENGINEER] system(s) required my full and direct attention, intervention and personal management. The aggregate critical care time was [31] minutes. This time is in addition to time spent performing reported procedures but includes the following: [x] Data Review and interpretation [x] Patient assessment and monitoring of vital signs [x] Documentation [x] Medication orders and management 07/11/2020. Patient currently on mechanical ventilation AC/PRVC with rate of 12, tidal volume 450, FiO2 30% and PEEP of 6 07/12/2020. Patient placed on CPAP with pressure support of 10 and tolerating well. Continue PSB trials as tolerated. 07/13/2020. Patient currently with AC mode rate 12, tidal volume 450, FiO2 30% a nd PEEP of 6. Surgery has been consulted for trach and PEG placement. Recall nephrology for renal insufficiency. 07/14/20; surgery evaluated for trach and PEG , pending call with test which is is positive today COVID-19 test positive x3 since admission 07/16; trach and PEG pending neuro evaluation 07/17; vent dependent, trach PEG pending neuro evaluation, pending MRI EEG study[already ordered] 07/18; unable to do MRI, due to body habitus, morbid obesity, radiology consult Patient critically ill very poor prognosis 07/19; remains intubated on vent, clinically no change 07/20; unable to wean, needs trach and PEG, need MRI , unable to do due to body habitus 07/21; clinically no change, remains intubated on ventilatory support 07/22; I recommend family meeting, to discuss the goals of treatment, discussed with case management 07/23; patient's blood pressures in the lower range, will hold an tihypertensives, fluid bolus, if no improvement Levophed per protocol Disposition; recommend family conference to decide the goals of treatment, prognosis, CODE STATUS. Brief history: 64 YO Female with a medical history of HTN, Diastolic CHF, Pulmonary HTN, DM, Obesity Hypoventilation Syndrome presents to ED for evaluation of shortness of breath. As per staff, the EMS was notified for difficulty breathing. Upon arrival to the patient's home the patient was found to be in distress and was subsequently transported to [facility] for further evaluation and care. In route to [facility] the patient developed cardiac arrest and was treated in accordance with ACLS protocol with return of ROSC. Patient was seen and evaluated in the emergency department and was intubated and placed on ventilatory support. Patient admitted to ICU. Critical care team consulted in ED. She was found to have COVID-19 infection and was started on steroids and remdesivir. ID was consulted. Cardiology was consulted for her systolic heart failure and cardiac arrest. Patient completed treatment for COVID-19, then develop superimposed bacterial pneumonia with Klebsiella. She is now extubated, 06/12/2020 but remains confused and requiring high flow O2 and intermittent BiPAP. Patient had another cardiac arrest reintubated 06/26/2020, currently in ICU vent dependent, unable to do trach and PEG due to persistent COVID-19 positive state, as well as anoxic brain injury, unable to get MRI , neurology following. History Interval history: I have seen and examined the patient this morning at the bedside in ICU Patient is COVID 19 test positive x3 Patient remains intubated on ventilatory support, unable to wean Noncommunicative, not in acute distress Vital signs reviewed Hospitalist Physical - Constitutional Vitals: Temp Pulse Resp BP Pulse Ox 98.7 F 72 22 162/66 97 07/23/20 08:00 07/23/20 08:10 07/23/20 08:10 07/23/20 08:10 07/23/20 08:10 General appearance: Present: no acute distress, well-nourished, obese (Morbidly obese), other (Intubated on ventilatory support) - EENT Eyes: Present: PERRL, EOM intact - Neck Neck: Present: supple. Absent: enlarged thyroid - Respiratory Respiratory effort: normal Respiratory: bilateral: diminished, rhonchi, negative: rales, wheezing - Cardiovascular Rhythm: regular Heart Sounds: Present: S1 & S2 - Extremities Extremities: no ischemia Extremity abnormal: edema - Abdominal General gastrointestinal: soft, non-tender, non-distended, normal bowel sounds - Integumentary Integumentary: Present: clear, warm - Psychiatric Psychiatric: other (Intubated on vent) - Neurologic Neurologic: other (Intubated on vent) HEART Score - HEART Score Troponin: Troponin T 0.067 ng/mL (0.00-0.029) H 07/01/20 06:01 Results - Labs CBC & Chem 7: 07/19/20 01:05 07/23/20 19:23 Labs: Laboratory Last Values WBC 8.4 K/mm3 (4.5-11.0) 07/19/20 01:05 RBC 2.76 M/mm3 (3.65-5.03) L 07/19/20 01:05 Hgb 7.9 gm/dl (10.1-14.3) L 07/19/20 01:05 Hct 24.5 % (30.3-42.9) L 07/19/20 01:05 MCV 89 fl (79-97) 07/19/20 01:05 MCH 29 pg (28-32) 07/19/20 01:05 MCHC 32 % (30-34) 07/19/20 01:05 RDW 17.6 % (13.2-15.2) H 07/19/20 01:05 Plt Count 312 K/mm3 (140-440) 07/19/20 01:05 Lymph % (Auto) 11.6 % (13.4-35.0) L 07/19/20 01:05 [place] % (Auto) 13.1 % (0.0-7.3) H 07/19/20 01:05 Eos % (Auto) 3.7 % (0.0-4.3) 07/19/20 01:05 Baso % (Auto) 0.7 % (0.0-1.8) 07/19/20 01:05 Lymph # (Auto) 1.0 K/mm3 (1.2-5.4) L 07/19/20 01:05 [place] # (Auto) 1.1 K/mm3 (0.0-0.8) H 07/19/20 01:05 Eos # (Auto) 0.3 K/mm3 (0.0-0.4) 07/19/20 01:05 Baso # (Auto) 0.1 K/mm3 (0.0-0.1) 07/19/20 01:05 Add Manual Diff Complete 07/13/20 04:53 Total Counted 100 07/13/20 04:53 Seg Neutrophils % 70.9 % (40.0-70.0) H 07/19/20 01:05 Seg Neuts % (Manual) 84.0 % (40.0-70.0) H 07/13/20 04:53 Band Neutrophils % 1.0 % 07/13/20 04:53 Lymphocytes % (Manual) 7.0 % (13.4-35.0) L 07/13/20 04:53 Reactive Lymphs % (Man) 0 % 07/13/20 04:53 Monocytes % (Manual) 5.0 % (0.0-7.3) 07/13/20 04:53 Eosinophils % (Manual) 1.0 % (0.0-4.3) 07/13/20 04:53 Basophils % (Manual) 0 % (0.0-1.8) 07/13/20 04:53 Metamyelocytes % 2.0 % 07/13/20 04:53 Myelocytes % 0 % 07/13/20 04:53 Promyelocytes % 0 % 07/13/20 04:53 Blast Cells % 0 % 07/13/20 04:53 Nucleated RBC % Not Reportable 07/13/20 04:53 Seg Neutrophils # 5.9 K/mm3 (1.8-7.7) 07/19/20 01:05 Seg Neutrophils # Man 7.1 K/mm3 (1.8-7.7) 07/13/20 04:53 Band Neutrophils # 0.1 K/mm3 07/13/20 04:53 Lymphocytes # (Manual) 0.6 K/mm3 (1.2-5.4) L 07/13/20 04:53 Abs React Lymphs (Man) 0.0 K/mm3 07/13/20 04:53 Monocytes # (Manual) 0.4 K/mm3 (0.0-0.8) 07/13/20 04:53 Eosinophils # (Manual) 0.1 K/mm3 (0.0-0.4) 07/13/20 04:53 Basophils # (Manual) 0.0 K/mm3 (0.0-0.1) 07/13/20 04:53 Metamyelocytes # 0.2 K/mm3 07/13/20 04:53 Myelocytes # 0.0 K/mm3 07/13/20 04:53 Promyelocytes # 0.0 K/mm3 07/13/20 04:53 Blast Cells # 0.0 K/mm3 07/13/20 04:53 WBC Morphology Not Reportable 07/13/20 04:53 Hypersegmented Neuts Not Reportable 07/13/20 04:53 Hyposegmented Neuts Not Reportable 07/13/20 04:53 Hypogranular Neuts Not Reportable 07/13/20 04:53 Smudge Cells Not Reportable 07/13/20 04:53 Toxic Granulation Not Reportable 07/13/20 04:53 Toxic Vacuolation Not Reportable 07/13/20 04:53 Dohle Bodies Not Reportable 07/13/20 04:53 Pelger-Huet Anomaly Not Reportable 07/13/20 04:53 Sanjuanita Rods Not Reportable 07/13/20 04:53 Platelet Estimate Consistent w auto 07/13/20 04:53 Clumped Platelets Not Reportable 07/13/20 04:53 Plt Clumps, EDTA Not Reportable 07/13/20 04:53 Large Platelets Not Reportable 07/13/20 04:53 Giant Platelets Not Reportable 07/13/20 04:53 Platelet Satelliting Not Reportable 07/13/20 04:53 Plt Morphology Comment Not Reportable 07/13/20 04:53 RBC Morphology Not Reportable 07/13/20 04:53 Dimorphic RBCs Not Reportable 07/13/20 04:53 Polychromasia Not Reportable 07/13/20 04:53 Hypochromasia Not Reportable 07/13/20 04:53 Poikilocytosis Not Reportable 07/13/20 04:53 Anisocytosis 1+ 07/13/20 04:53 Microcytosis Not Reportable 07/13/20 04:53 Macrocytosis Not Reportable 07/13/20 04:53 Spherocytes Not Reportable 07/13/20 04:53 Pappenheimer Bodies Not Reportable 07/13/20 04:53 Sickle Cells Not Reportable 07/13/20 04:53 Target Cells Not Reportable 07/13/20 04:53 Tear Drop Cells Not Reportable 07/13/20 04:53 Ovalocytes Not Reportable 07/13/20 04:53 Helmet Cells Not Reportable 07/13/20 04:53 Jones-Lomira Bodies Not Reportable 07/13/20 04:53 Tamiment Rings Not Reportable 07/13/20 04:53 Julia Cells Not Reportable 07/13/20 04:53 Bite Cells Not Reportable 07/13/20 04:53 Crenated Cell Not Reportable 07/13/20 04:53 Elliptocytes Not Reportable 07/13/20 04:53 Acanthocytes (Spur) Not Reportable 07/13/20 04:53 Rouleaux Not Reportable 07/13/20 04:53 Hemoglobin C Crystals Not Reportable 07/13/20 04:53 Schistocytes Not Reportable 07/13/20 04:53 Malaria parasites Not Reportable 07/13/20 04:53 Kev Bodies Not Reportable 07/13/20 04:53 Hem Pathologist Commnt No 07/13/20 04:53 PT 14.2 Sec. (12.2-14.9) 05/29/20 15:10 INR 1.08 (0.87-1.13) 05/29/20 15:10 APTT 27.2 Sec. (24.2-36.6) 05/29/20 15:10 D-Dimer 2310.15 ng/mlDDU (0-234) H 06/29/20 14:45 Heparin Anti-Xa Level 0.34 U.I./ml (0.3-0.7) 06/19/20 10:46 ABG pH 7.382 (7.320-7.450) 07/18/20 04:24 POC ABG pCO2 44.1 mmHg (32.0-48.0) 07/18/20 04:24 ABG pCO2 47.0 mm Hg 07/05/20 13:05 ABG Oxyhemoglobin 92.6 (94-98) L 06/23/20 12:34 POC ABG pO2 86.8 mmHg (83-108) 07/18/20 04:24 ABG pO2 78.3 mm Hg (80.0-90.0) L 07/05/20 13:05 POC ABG HCO3 25.6 07/18/20 04:24 ABG HCO3 23.4 mmol/L (20.0-26.0) 07/05/20 13:05 ABG O2 Saturation 96.1 % (95.0-99.0) 07/05/20 13:05 ABG O2 Content 0.3 (0.0-44) 07/05/20 13:05 POC ABG Base Excess 0.4 07/18/20 04:24 ABG Base Excess -2.6 mmol/L (-2.0-3.0) L 07/05/20 13:05 ABG Hemoglobin 8.8 (12.0-17.5) L 07/18/20 04:24 ABG Carboxyhemoglobin 1.7 % (0.0-5.0) 07/05/20 13:05 ABG Methemoglobin 0.2 % (0.0-1.5) 07/05/20 13:05 VBG pH 7.152 (7.320-7.420) L* 05/28/20 13:47 ABG Sodium 131.6 mmol/L (136.0-145.0) L 07/18/20 04:24 ABG Potassium 4.9 mmol/L (3.40-4.50) H 07/18/20 04:24 ABG Chloride 104.0 mmol/L (98-107) 07/18/20 04:24 ABG Glucose 131 mg/dL (65-95) H 07/18/20 04:24 Carboxyhemoglobin 0.5 (0.5-1.5) 06/23/20 12:34 Oxyhemoglobin 97.4 % (95.0-99.0) 07/05/20 13:05 FiO2 30.0 07/18/20 04:24 Sodium 137 mmol/L (137-145) 07/19/20 01:05 Potassium 4.9 mmol/L (3.6-5.0) 07/19/20 01:05 Chloride 101.6 mmol/L (98-107) 07/19/20 01:05 Carbon Dioxide 22 mmol/L (22-30) 07/19/20 01:05 Anion Gap 18 mmol/L 07/19/20 01:05 BUN 86 mg/dL (7-17) H 07/19/20 01:05 Creatinine 1.7 mg/dL (0.6-1.2) H 07/19/20 01:05 Estimated GFR 30 ml/min 07/19/20 01:05 BUN/Creatinine Ratio 51 % 07/19/20 01:05 Glucose 149 mg/dL (65-100) H 07/19/20 01:05 POC Glucose 143 (70-105) H 07/23/20 06:06 Lactic Acid 0.60 mmol/L (0.7-2.0) L 06/27/20 05:00 Calcium 8.8 mg/dL (8.4-10.2) 07/19/20 01:05 Ferritin 223.6 ng/mL (10.0-200.0) H 06/29/20 14:45 Magnesium 2.50 mg/dL (1.7-2.3) H 07/08/20 04:14 Lactate Dehydrogenase 367 units/L (91-180) H 06/29/20 14:45 Total Bilirubin < 0.20 mg/dL (0.1-1.2) 07/10/20 10:41 AST 25 units/L (5-40) 07/10/20 10:41 ALT 11 units/L (7-56) 07/10/20 10:41 Alkaline Phosphatase 131 units/L (35-129) H 07/10/20 10:41 C-Reactive Protein 3.60 mg/dL (0.00-1.30) H 06/29/20 14:45 Total Creatine Kinase 300 units/L (30-135) H 07/01/20 06:01 CK-MB (CK-2) 2.0 ng/mL (0.0-4.0) 07/01/20 06:01 CK-MB (CK-2) Rel Index 0.6 (0-4) 07/01/20 06:01 Troponin T 0.067 ng/mL (0.00-0.029) H 07/01/20 06:01 Total Protein 5.2 g/dL (6.3-8.2) L 07/10/20 10:41 Albumin 1.6 g/dL (3.9-5) L 07/10/20 10:41 Albumin/Globulin Ratio 0.4 % 07/10/20 10:41 Triglycerides 142 mg/dL (2-149) 07/01/20 06:01 Cholesterol 137 mg/dL (50-199) 07/01/20 06:01 LDL Cholesterol Direct 62 mg/dL (50-130) 07/01/20 06:01 HDL Cholesterol 61 mg/dL (40-59) H 07/01/20 06:01 Cholesterol/HDL Ratio 2.24 % 07/01/20 06:01 Procalcitonin 0.18 ng/mL (<0.15) 07/14/20 04:55 Arterial Blood Glucose 131 mg/dL (65-95) H 07/18/20 04:24 Arterial Blood Ionized Calcium 5.1 mg/dL (4.6-5.3) 07/18/20 04:24 Urine Color Yellow (Yellow) 06/06/20 04:00 Urine Turbidity Cloudy (Clear) 06/06/20 04:00 Urine pH 5.0 (5.0-7.0) 06/06/20 04:00 Ur Specific [place] 1.012 (1.003-1.030) 06/06/20 04:00 Urine Protein 100 mg/dl mg/dL (Negative) 06/06/20 04:00 Urine Glucose (UA) 50 mg/dL (Negative) 06/06/20 04:00 Urine Ketones Neg mg/dL (Negative) 06/06/20 04:00 Urine Blood Sm (Negative) 06/06/20 04:00 Urine Nitrite Neg (Negative) 06/06/20 04:00 Urine Bilirubin Neg (Negative) 06/06/20 04:00 Urine Urobilinogen < 2.0 mg/dL (<2.0) 06/06/20 04:00 Ur Leukocyte Esterase Neg (Negative) 06/06/20 04:00 Urine WBC (Auto) 15.0 /HPF (0.0-6.0) H 06/06/20 04:00 Urine RBC (Auto) 23.0 /HPF (0.0-6.0) 06/06/20 04:00 U Epithel Cells (Auto) 8.0 /HPF (0-13.0) 06/06/20 04:00 Urine Bacteria (Auto) 2+ /HPF (Negative) 06/06/20 04:00 Amorphous Crystals 1+ 06/06/20 04:00 Hyaline Casts 16 /LPF 06/06/20 04:00 Urine Mucus 2+ /HPF 06/06/20 04:00 Urine Yeast (Budding) 2+ /HPF 06/03/20 Unknown Urine Creatinine 33.3 mg/dL (0.1-20.0) H 07/06/20 13:20 Urine Sodium 21 mmol/L 07/06/20 13:20 Urine Total Protein 196 mg/dL (5-11.8) H 06/06/20 04:00 Nasal Screen MRSA (PCR) Negative (Negative) 06/29/20 08:30 Coronavirus (PCR) Positive (Negative) A 07/14/20 08:04 Blood Type A POSITIVE 07/05/20 02:30 Antibody Screen Negative 07/05/20 02:30 Crossmatch See Detail 07/05/20 02:30 - Diagnostic Impressions Diagnostic Impressions: Echocardiogram Limited Views 05/29/20 13:52 Transthoracic Echocardiogram Indication: Pulm Embolus BP: 169/76 HR: 85 Conclusions *Limited study for RV size post cardiopulmonar arrest. *RV is only slightly dilated, no significant difference from prior echo 05/13/2020. *Global left ventricular systolic function is at the lower limits of normal. *The estimated ejection fraction is 45-50%. *Mild to moderate concentric left ventricular hypertrophy is observed. *The left and right atria are both mild to moderately dilated. Findings Left Ventricle: The left ventricular chamber size is mildly dilated. Mild to moderate concentric left ventricular hypertrophy is observed. Global left ventricular systolic function is at the lower limits of normal. The estimated ejection fraction is 45-50%. Left Atrium: The left atrium is mild to moderately dilated. Right Ventricle: The right ventricle is slightly dilated. Right Atrium: The right atrium is mild to moderately dilated. Aortic Valve: The aortic valve leaflets are moderately thickened. Mitral Valve: There is mitral annular calcification. The mitral valve leaflets are moderately thickened. Tricuspid Valve: The tricuspid valve leaflets are mildly thickened. Pericardium: A trivial pericardial effusion is visualized. NDUM: 05/29/20 1808 Amended Report Transthoracic Echocardiogram Indication: Pulm Embolus BP: 169/76 HR: 85 Conclusions *Limited study for RV size post cardiopulmonary arrest. *RV is only slightly dilated, no significant difference from prior echo 05/13/2020. *Global left ventricular systolic function is at the lower limits of normal. *The estimated ejection fraction is 45-50%. *Mild to moderate concentric left ventricular hypertrophy is observed. *The left and right atria are both mild to moderately dilated. Findings Left Ventricle: The left ventricular chamber size is mildly dilated. Mild to moderate concentric left ventricular hypertrophy is observed. Global left ventricular systolic function is at the lower limits of normal. The estimated ejection fraction is 45-50%. Left Atrium: The left atrium is mild to moderately dilated. Right Ventricle: The right ventricle is slightly dilated. Right Atrium: The right atrium is mild to moderately dilated. Aortic Valve: The aortic valve leaflets are moderately thickened. Mitral Valve: There is mitral annular calcification. The mitral valve leaflets are moderately thickened. Tricuspid Valve: The tricuspid valve leaflets are mildly thickened. Pericardium: A trivial pericardial effusion is visualized. Helm/IV: Voiding Method External Female Catheter IV Catheter Type [Left Wrist] Peripheral IV IV Catheter Type [Left Upper INT / Saline Lock arm] IV Catheter Type [Right CVL Internal Jugular] IV Catheter Type [Right Hand] Peripheral IV IV Catheter Type [Right Wrist] Not found on patient IV Catheter Type [Left Hand] INT / Saline Lock IV Catheter Type [Left INT / Saline Lock Antecubital] IV Catheter Type [Right Peripheral IV Forearm] IV Catheter Type [Left Leg] Intra-osseous Active Medications - Current Medications Current Medications: Generic Name Dose Route Start Last Admin Trade Name Freq PRN Reason Stop Dose Admin Acetaminophen 650 mg 06/09/20 10:57 06/29/20 21:18 Tylenol FEEDTUBE 650 mg Q6H PRN Administration Fever >101 Amlodipine Besylate 10 mg 06/02/20 11:00 07/22/20 10:40 Amlodipine PO 10 mg DAILY NELSON Administration Lipase/Protease/Amylase 1 each 05/29/20 13:39 07/07/20 10:[address] 10,500 Unit FEEDTUBE 1 each PRN PRN Administration For Clogged Feeding Tube Carvedilol 25 mg 07/20/20 11:00 07/22/20 22:18 Coreg PO 25 mg Q12HR NELSON Administration Clonidine HCl 0.3 mg 07/20/20 11:00 07/23/20 04:01 Catapres PO 0.3 mg Q8H NELSON Administration Glycopyrrolate 2 mg 06/09/20 14:00 07/23/20 07:55 Glycopyrrolate PO 2 mg TID NELSON Administration Heparin Sodium (Porcine) 5,000 unit 06/30/20 14:00 07/23/20 06:00 Heparin SUB-Q 5,000 unit Q8HR NELSON Administration Hydralazine HCl 100 mg 07/14/20 14:00 07/23/20 07:55 Apresoline PO 100 mg TID NELSON Administration Hydrophilic Ointment 1 applic 05/28/20 13:49 Vaseline Lip Therapy TP Q2HR PRN Dry Lips Insulin Glargine 10 units 06/08/20 22:00 07/22/20 22:31 Lantus SUB-Q 10 units QHS NELSON Administration Insulin Human Lispro 0 unit 05/29/20 18:00 07/23/20 05:59 Humalog SUB-Q Not Given Q6H [facility] Protocol Labetalol HCl 20 mg 06/03/20 09:00 07/21/20 05:56 Labetalol IV 20 mg Q4H PRN Administration HYPERTENSION Lansoprazole 30 mg 06/05/20 22:00 07/22/20 22:22 Prevacid Solutab FEEDTUBE 30 mg BID NELSON Administration Levetiracetam 1,000 mg 07/21/20 22:00 07/22/20 22:17 Keppra PO 1,000 mg BID NELSON Administration Minoxidil 5 mg 07/21/20 10:00 07/22/20 22:31 Loniten PO 5 mg BID NELSON Administration Multi-Ingred Cream/Lotion/Oil/Oint 1 applic 05/28/20 13:49 Artificial Tears Ophth Oint OU Q4HR PRN Dry Eye(s) Ondansetron HCl 4 mg 06/02/20 09:00 06/09/20 16:48 Zofran IV 4 mg Q8H PRN Administration Nausea And Vomiting Senna 17.6 mg 06/03/20 10:00 07/22/20 22:18 Senokot FEEDTUBE 17.6 mg BID NELSON Administration Simple Syrup 15 ml 05/29/20 13:39 Simple Syrup FEEDTUBE PRN PRN Hypoglycemia Simple Syrup 30 ml 05/29/20 13:39 Simple Syrup FEEDTUBE PRN PRN Hypoglycemia Sodium Bicarbonate 325 mg 05/29/20 13:39 07/07/20 10:36 Sodium Bicarbonate FEEDTUBE 325 mg PRN PRN Administration For Clogged Feeding Tube Sodium Chloride 10 ml 05/28/20 22:00 07/22/20 22:19 Sodium Chloride Flush Syringe 10 Ml IV 10 ml BID NELSON Administration Sodium Chloride 10 ml 05/28/20 19:08 06/16/20 17:50 Sodium Chloride Flush Syringe 10 Ml IV 10 ml PRN PRN Administration LINE FLUSH Nutrition/Malnutrition Assess - Dietary Evaluation Nutrition/Malnutrition Findings: Nutrition Notes Start: 05/29/20 11:45 Freq: Status: Active Protocol: Document 07/20/20 11:28 (Rec: 07/20/20 11:32 [id number]) Nutrition Notes Initial or Follow up Reassessment Current Diagnosis Acute Kidney Injury,Diabetes, Heart Failure,Respiratory Failure Other Pertinent Diagnosis COVID-19 (+), Pulmonary edema, dysphagia Current Diet Nepro at 40 ml/hr Labs/Tests BUN 86 Cr 1.7 Pertinent Medications Reviewed Height 5 ft 6 in Weight 123 kg [place] Body Weight (kg) 59.09 BMI 43.7 Weight Status Morbidly Obese Subjective/Other Information FU for TF tolerance. TF running at goal, pt tolerating . Pt unable to get PEG placed due to COVID test result. Percent of energy/protein needs met: 100%/53% Burn Absent Trauma Absent Current % PO Negligible Minimum of two criteria No physical signs of malnutrition Fluid Accumulation Mild (non-severe) #1 Nutrition Diagnosis Inadequate oral intake Diagnosis Progress(for reassessment Continues documentation) Is patient on ventilator? Yes Is Patient Ambulatory and/or Out of Bed No REE-([facility]-confined to bed) 2172.576 Kcal/Kg value to use for calculation 13 Approximate Energy Requirements Using 1599 kcal/Kg Calculation Used for Recommendations Kcal/kg Additional Notes Protein needs up to 148g (up to 2.5g/kg IBW) Fluid needs 1ml/kcal Nutrition Intervention Change Diet Order: Continue Nutrition Support: Nepro at 40ml/hr Flush 150ml q4h Kcal 1,728 Protein (gm) 78 Fluid (mL) 697 Goal #1 TF tolerance Goal #2 TF to meet at least 65%-70% energy and 80% protein needs Anticipated Discharge Needs: Unable to determine at this time Follow-Up By: 07/27/20 Additional Comments FU for TF tolerance
[2020-07-23] MEDS: amLODIPine 10 MG TAB PO SCH (09:06)
[2020-07-23] MEDS: levETIRAcetam 500 MG/5 ML ORAL LIQD PO SCH ×2 (09:06→23:02)
[2020-07-23] MEDS: MINOXIDIL 2.5 MG TAB PO SCH ×2 (09:07→22:01)
[2020-07-23] MEDS: carvediloL 25 MG TAB PO SCH ×2 (09:07→23:07)
[2020-07-23] MEDS: LANSOPRAZOLE 30 MG SOLUTAB FEEDTUBE SCH ×2 (09:10→23:02)
[2020-07-23] MEDS: SENNOSIDES ORAL LIQD 8.8 MG/5 ML ORAL LIQD FEEDTUBE SCH ×2 (09:11→23:05)
[2020-07-23] MEDS ORDERED: LACOSAMIDE 100 MG TAB PO SCH (10:00)
--- NOTE | 2020-07-23 11:25 | Progress Note ---
Assessment and Plan Cardiopulmoanry arrest 06/26/2020 with ROSC Acute hypoxemic respiratory failure , extubated now re-intubated Anemia s/p PRBC Severe COVID infection Multifocal pneumonia Morbid obesity Acute toxic metabolic encephalopathy AVANI secondary to COVID/vasomotor nephropathy Bilateral pulmonary edema. Bilateral pleural effusions. History of congestive heart failure. History of pulmonary hypertension. History of hypertension. Diabetes. Obesity hypoventilation syndrome. Oropharyngeal dysphagia Non convulsive status Adjust blood pressure medications-added Minoxidil to therapy, monitor hemodynamics closely Keppra loading and scheduled 1 gram BID Added Vimpat for ongoing seizures Continue to trend temperature curve and WCC Continue daily SBTs as tolerated, her mental status precludes liberation from MV S Continue to avoid nephrotoxins, closely monitor renal function, dose all medications for renal function COVID positive, trach /PEG on hold Supportive transfusions as indicated CXR and ABG as clinically indicated - VAP bundle addressed -Aspiration precautions, HOB >40 -lung protective strategies-ARDS. net - continue bronchodilators with pulmonary hygiene per RT - wean per pulmonary driven protocols otherwise - continue to avoid benzodiazepines, reduce the possibility of delirium - prn analgesia per CPOT score - Continue to wean supplemental oxygen for target O2 sats > 92% -Continue to hold sedation, if needed intermittent dosing - conservative fluid management measures as tolerated by hemodynamics and renal function - Bronchodilators with pulmonary hygiene per RT - Accuchecks with glycemic control per SSI (While critically ill target blood glucose of 140-180 mg/dL; avoid hypoglycemia) - Maintenance of sleep-wake cycle, avoid delirium - Aspiration precautions, HOB >40 - Stress ulcer prophylaxis -Famotidine - Mobility protocol, off loading and skin assessment for pressure ulcer prevention - Supportive transfusions as indicated to keep HgB >7g/dL COVID SPECIFIC INTERVENTIONS -Airborne, contact isolation for COVID per facility protocols - s/p Remdesivir -IV steroids-Dexamethasone -Trend d-dimer,and other inflammatory markers per facility protocol -Convalescent plasma therapy per facility protocol -Continue all supportive care Discussed with the ICU team-RT,RN, Clincal pharmacist and case management Life threatening condition- Cardiopulmonary arrest with ROSC, Sepsis ;COVID 19 acute hypoxemic respiratory failure on MVS Mortality/Morbidity- High Complexity of medical decision making- High CONDITION: CRITICAL PROGNOSIS: GUARDED CODE STATUS: FULL CODE The high probability of a clinically significant, sudden or life-threatening deterioration of the [respiratory & neurology, renal ] system(s) required my full and direct attention, intervention and personal management. The aggregate critical care time was [32] minutes without overlap. Time includes spent on; [x] Data Review and interpretation [x] Patient assessment and monitoring of vital signs [x] Documentation [x] Medication orders and management Subjective Date of service: 07/23/20 Principal diagnosis: Ac hypoxemic resp failure; COVID-19; pneumonia; CHF; Pulm HTN; OHS; DM II Interval history: Patient is seen today for: Ac hypoxemic resp failure s/p Cardiopulmonary arrest with ROSC; Coronavirus-19 infection; pneumonia; Pulmonary edema; Bilateral pleural effusions; CHF; Morbid obesity; pulmonary hypertension; OHS; DM II Seen and examined at bedside; 24hour events reviewed; nursing and respiratory care staff consulted; Vitals, labs,medications, chart reviewed. Remains on MVS, no fevers, Did not tolerate PS trials today Mental status changes persist, but grimaces to pain and will open her eyes with sternal rub Tolerating tube feedings, No adverse overnight events 07/19/2020 Trach on hold secondary to recent positive COVID testing Neurology prognostication unable to be completed as an EEG was apparently cancelled secondary to COVID status, patient's habitus is such that she could not fit into the MRI machine No new issues otherwise, placed on PSV 10 and she is tolerating it No fevers, mental status changes persist, no adverse overnight events reported by RN or RT 07/20/2020 -Persistently elevated blood pressure. Continues to tolerate PSV trials -Mental status changes persist -Will re-order EEG today 07/21/2020 -EEG shows burst suppression pattern, consistent with status epilepticus per Neurology read -Blood pressure control continues to be challenging -Tolerating PSV trials, no fevers, no new respiratory issues Objective Vital Signs - 12hr 07/22/20 07/22/20 07/23/20 23:30 23:42 00:00 Temperature 97.5 F L Pulse Rate 66 68 69 Pulse Rate [ 69 From Monitor] Respiratory 14 16 16 Rate Blood Pressure 157/59 157/59 159/61 O2 Sat by Pulse 97 97 98 Oximetry 07/23/20 07/23/20 07/23/20 00:12 00:30 01:00 Temperature Pulse Rate 68 70 69 Pulse Rate [ From Monitor] Respiratory 22 17 Rate Blood Pressure 159/61 170/60 169/65 O2 Sat by Pulse 96 97 97 Oximetry 07/23/20 07/23/20 07/23/20 01:10 01:30 02:00 Temperature 97.5 F L Pulse Rate 69 69 Pulse Rate [ From Monitor] Respiratory 14 17 Rate Blood Pressure 161/72 167/59 O2 Sat by Pulse 97 97 Oximetry 07/23/20 07/23/20 07/23/20 02:30 03:00 03:30 Temperature Pulse Rate 70 71 70 Pulse Rate [ From Monitor] Respiratory 21 22 19 Rate Blood Pressure 149/53 154/55 147/53 O2 Sat by Pulse 96 96 95 Oximetry 07/23/20 07/23/20 07/23/20 04:00 04:01 04:18 Temperature 97.6 F Pulse Rate 72 72 71 Pulse Rate [ 72 From Monitor] Respiratory 29 H Rate Blood Pressure 158/79 158/79 155/79 O2 Sat by Pulse 97 96 Oximetry 07/23/20 07/23/20 07/23/20 04:31 05:00 05:30 Temperature Pulse Rate 67 69 69 Pulse Rate [ From Monitor] Respiratory 17 17 12 Rate Blood Pressure 170/57 159/72 171/56 O2 Sat by Pulse 96 98 97 Oximetry 07/23/20 07/23/20 07/23/20 06:00 06:30 08:00 Temperature 98.7 F Pulse Rate 69 70 Pulse Rate [ From Monitor] Respiratory 17 16 Rate Blood Pressure 169/87 157/61 O2 Sat by Pulse 97 98 Oximetry 07/23/20 08:10 Temperature Pulse Rate 72 Pulse Rate [ From Monitor] Respiratory 22 Rate Blood Pressure 162/66 O2 Sat by Pulse 97 Oximetry Constitutional: appears uncomfortable, other (elderly looking obese female with mildly increased respiratory effort at rest on MVS) Eyes: non-icteric ENT: oropharynx dry, other (ETT 23-24 cm AYAN) Neck: supple, no lymphadenopathy, no JVD, other (large neck circumference) Effort: mildly labored Ascultation: Bilateral: clear, diminished breath sounds, rales, rhonchi Percussion: Bilateral: not dull Cardiovascular: regular rate and rhythm, other (S1,S2) Gastrointestinal: normoactive bowel sounds, soft, non-tender, non-distended Integumentary: normal Extremities: no cyanosis, pink and warm, pulses normal, no ischemia or petechiae, anasarca Neurologic: pupils equal and round, unable to assess, other (lethargic to obtunded) Psychiatric: other (unable to assess re: AMS) CBC and BMP: 07/24/20 04:29 07/24/20 04:29 ABG, PT/INR, D-dimer: ABG ABG pH 7.382 (7.320-7.450) 07/18/20 04:24 POC ABG pCO2 44.1 mmHg (32.0-48.0) 07/18/20 04:24 ABG pCO2 47.0 mm Hg 07/05/20 13:05 POC ABG pO2 86.8 mmHg (83-108) 07/18/20 04:24 ABG pO2 78.3 mm Hg (80.0-90.0) L 07/05/20 13:05 POC ABG HCO3 25.6 07/18/20 04:24 ABG O2 Saturation 96.1 % (95.0-99.0) 07/05/20 13:05 PT/INR, D-dimer PT 14.2 Sec. (12.2-14.9) 05/29/20 15:10 INR 1.08 (0.87-1.13) 05/29/20 15:10 D-Dimer 2310.15 ng/mlDDU (0-234) H 06/29/20 14:45 Abnormal lab findings: Abnormal Labs 05/28/20 05/28/20 05/28/20 13:29 13:47 13:47 WBC RBC Hgb Hct MCHC RDW 15.3 H Lymph % (Auto) Rush % (Auto) Eos % (Auto) Lymph # Rush # Lymph # (Auto) Rush # (Auto) Seg Neutrophils % Seg Neuts % (Manual) Lymphocytes % (Manual) Seg Neutrophils # Seg Neutrophils # Man Lymphocytes # (Manual) Monocytes % (Manual) Eosinophils % (Manual) Monocytes # (Manual) Eosinophils # (Manual) D-Dimer Heparin Anti-Xa Level ABG pH POC ABG pCO2 POC ABG pO2 ABG pO2 ABG HCO3 ABG O2 Saturation ABG Base Excess ABG Hemoglobin ABG Oxyhemoglobin VBG pH ABG Sodium ABG Potassium ABG Glucose Oxyhemoglobin Sodium Potassium 6.6 H* Chloride 109.2 H Carbon Dioxide 17 L BUN 29 H Creatinine 1.3 H Glucose 265 H POC Glucose 248 H Lactic Acid Calcium 8.1 L Ferritin AST 63 H Alkaline Phosphatase Magnesium Lactate Dehydrogenase Total Creatine Kinase 301 H CK-MB (CK-2) 4.3 H C-Reactive Protein Total Protein 5.4 L Albumin 2.6 L Troponin T HDL Cholesterol Arterial Blood Glucose Urine WBC (Auto) Urine Creatinine Urine Total Protein Coronavirus (PCR) Crossmatch 05/28/20 05/28/20 05/28/20 13:47 13:47 14:46 WBC RBC Hgb Hct MCHC RDW Lymph % (Auto) Rush % (Auto) Eos % (Auto) Lymph # Rush # Lymph # (Auto) Rush # (Auto) Seg Neutrophils % Seg Neuts % (Manual) Lymphocytes % (Manual) Seg Neutrophils # Seg Neutrophils # Man Lymphocytes # (Manual) Monocytes % (Manual) Eosinophils % (Manual) Monocytes # (Manual) Eosinophils # (Manual) D-Dimer Heparin Anti-Xa Level ABG pH POC ABG pCO2 POC ABG pO2 ABG pO2 ABG HCO3 ABG O2 Saturation ABG Base Excess ABG Hemoglobin ABG Oxyhemoglobin VBG pH 7.152 L* ABG Sodium ABG Potassium ABG Glucose Oxyhemoglobin Sodium Potassium 7.2 H* Chloride Carbon Dioxide BUN Creatinine Glucose POC Glucose Lactic Acid 3.40 H* Calcium Ferritin AST Alkaline Phosphatase Magnesium Lactate Dehydrogenase Total Creatine Kinase CK-MB (CK-2) C-Reactive Protein Total Protein Albumin Troponin T HDL Cholesterol Arterial Blood Glucose Urine WBC (Auto) Urine Creatinine Urine Total Protein Coronavirus (PCR) Crossmatch 05/28/20 05/28/20 05/28/20 15:33 15:33 15:51 WBC RBC Hgb Hct MCHC RDW Lymph % (Auto) Rush % (Auto) Eos % (Auto) Lymph # Rush # Lymph # (Auto) Rush # (Auto) Seg Neutrophils % Seg Neuts % (Manual) Lymphocytes % (Manual) Seg Neutrophils # Seg Neutrophils # Man Lymphocytes # (Manual) Monocytes % (Manual) Eosinophils % (Manual) Monocytes # (Manual) Eosinophils # (Manual) D-Dimer 8780.43 H Heparin Anti-Xa Level ABG pH 7.284 L POC ABG pCO2 POC ABG pO2 ABG pO2 273.0 H ABG HCO3 ABG O2 Saturation 99.4 H ABG Base Excess -6.1 L ABG Hemoglobin 17.2 H ABG Oxyhemoglobin VBG pH ABG Sodium ABG Potassium ABG Glucose Oxyhemoglobin Sodium Potassium Chloride Carbon Dioxide BUN Creatinine Glucose 152 H POC Glucose Lactic Acid Calcium Ferritin AST Alkaline Phosphatase Magnesium Lactate Dehydrogenase 365 H Total Creatine Kinase CK-MB (CK-2) C-Reactive Protein Total Protein Albumin Troponin T HDL Cholesterol Arterial Blood Glucose Urine WBC (Auto) Urine Creatinine Urine Total Protein Coronavirus (PCR) Crossmatch 05/28/20 05/28/20 05/28/20 16:30 20:41 23:20 WBC RBC Hgb Hct MCHC RDW Lymph % (Auto) Rush % (Auto) Eos % (Auto) Lymph # Rush # Lymph # (Auto) Rush # (Auto) Seg Neutrophils % Seg Neuts % (Manual) Lymphocytes % (Manual) Seg Neutrophils # Seg Neutrophils # Man Lymphocytes # (Manual) Monocytes % (Manual) Eosinophils % (Manual) Monocytes # (Manual) Eosinophils # (Manual) D-Dimer Heparin Anti-Xa Level ABG pH POC ABG pCO2 POC ABG pO2 ABG pO2 ABG HCO3 ABG O2 Saturation ABG Base Excess ABG Hemoglobin ABG Oxyhemoglobin VBG pH ABG Sodium ABG Potassium ABG Glucose Oxyhemoglobin Sodium Potassium Chloride Carbon Dioxide BUN Creatinine Glucose POC Glucose 225 H 224 H Lactic Acid Calcium Ferritin AST Alkaline Phosphatase Magnesium Lactate Dehydrogenase Total Creatine Kinase CK-MB (CK-2) C-Reactive Protein Total Protein Albumin Troponin T HDL Cholesterol Arterial Blood Glucose Urine WBC (Auto) 17.0 H Urine Creatinine Urine Total Protein Coronavirus (PCR) Crossmatch 05/28/20 05/29/20 05/29/20 Unknown 04:35 04:43 WBC RBC 3.48 L Hgb 9.8 L Hct 29.4 L MCHC RDW 16.0 H Lymph % (Auto) 7.4 L Rush % (Auto) Eos % (Auto) Lymph # 0.7 L Rush # Lymph # (Auto) Rush # (Auto) Seg Neutrophils % 89.1 H Seg Neuts % (Manual) Lymphocytes % (Manual) Seg Neutrophils # 8.1 H Seg Neutrophils # Man Lymphocytes # (Manual) Monocytes % (Manual) Eosinophils % (Manual) Monocytes # (Manual) Eosinophils # (Manual) D-Dimer Heparin Anti-Xa Level ABG pH POC ABG pCO2 POC ABG pO2 ABG pO2 ABG HCO3 19.3 L ABG O2 Saturation ABG Base Excess -4.5 L ABG Hemoglobin 9.7 L ABG Oxyhemoglobin VBG pH ABG Sodium ABG Potassium ABG Glucose Oxyhemoglobin Sodium Potassium Chloride Carbon Dioxide BUN Creatinine Glucose POC Glucose Lactic Acid Calcium Ferritin AST Alkaline Phosphatase Magnesium Lactate Dehydrogenase Total Creatine Kinase CK-MB (CK-2) C-Reactive Protein Total Protein Albumin Troponin T HDL Cholesterol Arterial Blood Glucose Urine WBC (Auto) Urine Creatinine Urine Total Protein Coronavirus (PCR) Positive A Crossmatch 05/29/20 05/29/20 05/29/20 04:43 15:10 17:17 WBC RBC Hgb 9.3 L Hct 28.7 L MCHC RDW Lymph % (Auto) Rush % (Auto) Eos % (Auto) Lymph # Rush # Lymph # (Auto) Rush # (Auto) Seg Neutrophils % Seg Neuts % (Manual) Lymphocytes % (Manual) Seg Neutrophils # Seg Neutrophils # Man Lymphocytes # (Manual) Monocytes % (Manual) Eosinophils % (Manual) Monocytes # (Manual) Eosinophils # (Manual) D-Dimer Heparin Anti-Xa Level ABG pH POC ABG pCO2 POC ABG pO2 ABG pO2 ABG HCO3 ABG O2 Saturation ABG Base Excess ABG Hemoglobin ABG Oxyhemoglobin VBG pH ABG Sodium ABG Potassium ABG Glucose Oxyhemoglobin Sodium Potassium Chloride 110.2 H Carbon Dioxide 18 L BUN 32 H Creatinine 1.4 H Glucose 180 H POC Glucose 147 H Lactic Acid Calcium Ferritin AST Alkaline Phosphatase Magnesium Lactate Dehydrogenase Total Creatine Kinase CK-MB (CK-2) C-Reactive Protein Total Protein Albumin Troponin T HDL Cholesterol Arterial Blood Glucose Urine WBC (Auto) Urine Creatinine Urine Total Protein Coronavirus (PCR) Crossmatch 05/30/20 05/30/20 05/30/20 00:08 00:12 04:15 WBC RBC Hgb Hct MCHC RDW Lymph % (Auto) Rush % (Auto) Eos % (Auto) Lymph # Rush # Lymph # (Auto) Rush # (Auto) Seg Neutrophils % Seg Neuts % (Manual) Lymphocytes % (Manual) Seg Neutrophils # Seg Neutrophils # Man Lymphocytes # (Manual) Monocytes % (Manual) Eosinophils % (Manual) Monocytes # (Manual) Eosinophils # (Manual) D-Dimer Heparin Anti-Xa Level 0.71 H ABG pH 7.460 H POC ABG pCO2 POC ABG pO2 ABG pO2 106.0 H ABG HCO3 18.9 L ABG O2 Saturation ABG Base Excess -4.4 L ABG Hemoglobin 6.8 L ABG Oxyhemoglobin VBG pH ABG Sodium ABG Potassium ABG Glucose Oxyhemoglobin Sodium Potassium Chloride Carbon Dioxide BUN Creatinine Glucose POC Glucose 195 H Lactic Acid Calcium Ferritin AST Alkaline Phosphatase Magnesium Lactate Dehydrogenase Total Creatine Kinase CK-MB (CK-2) C-Reactive Protein Total Protein Albumin Troponin T HDL Cholesterol Arterial Blood Glucose Urine WBC (Auto) Urine Creatinine Urine Total Protein Coronavirus (PCR) Crossmatch 05/30/20 05/30/20 05/30/20 06:07 08:37 12:33 WBC RBC Hgb Hct MCHC RDW Lymph % (Auto) Rush % (Auto) Eos % (Auto) Lymph # Rush # Lymph # (Auto) Rush # (Auto) Seg Neutrophils % Seg Neuts % (Manual) Lymphocytes % (Manual) Seg Neutrophils # Seg Neutrophils # Man Lymphocytes # (Manual) Monocytes % (Manual) Eosinophils % (Manual) Monocytes # (Manual) Eosinophils # (Manual) D-Dimer Heparin Anti-Xa Level 0.85 H ABG pH POC ABG pCO2 POC ABG pO2 ABG pO2 ABG HCO3 ABG O2 Saturation ABG Base Excess ABG Hemoglobin ABG Oxyhemoglobin VBG pH ABG Sodium ABG Potassium ABG Glucose Oxyhemoglobin Sodium Potassium Chloride Carbon Dioxide BUN Creatinine Glucose POC Glucose 182 H 187 H Lactic Acid Calcium Ferritin AST Alkaline Phosphatase Magnesium Lactate Dehydrogenase Total Creatine Kinase CK-MB (CK-2) C-Reactive Protein Total Protein Albumin Troponin T HDL Cholesterol Arterial Blood Glucose Urine WBC (Auto) Urine Creatinine Urine Total Protein Coronavirus (PCR) Crossmatch 05/30/20 05/30/20 05/30/20 15:58 17:57 23:36 WBC RBC Hgb Hct MCHC RDW Lymph % (Auto) Rush % (Auto) Eos % (Auto) Lymph # Rush # Lymph # (Auto) Rush # (Auto) Seg Neutrophils % Seg Neuts % (Manual) Lymphocytes % (Manual) Seg Neutrophils # Seg Neutrophils # Man Lymphocytes # (Manual) Monocytes % (Manual) Eosinophils % (Manual) Monocytes # (Manual) Eosinophils # (Manual) D-Dimer Heparin Anti-Xa Level 1.03 H ABG pH POC ABG pCO2 POC ABG pO2 ABG pO2 ABG HCO3 ABG O2 Saturation ABG Base Excess ABG Hemoglobin ABG Oxyhemoglobin VBG pH ABG Sodium ABG Potassium ABG Glucose Oxyhemoglobin Sodium Potassium Chloride Carbon Dioxide BUN Creatinine Glucose POC Glucose 208 H 185 H Lactic Acid Calcium Ferritin AST Alkaline Phosphatase Magnesium Lactate Dehydrogenase Total Creatine Kinase CK-MB (CK-2) C-Reactive Protein Total Protein Albumin Troponin T HDL Cholesterol Arterial Blood Glucose Urine WBC (Auto) Urine Creatinine Urine Total Protein Coronavirus (PCR) Crossmatch 05/31/20 05/31/20 05/31/20 02:16 03:55 06:16 WBC RBC Hgb 9.2 L Hct 27.5 L MCHC RDW Lymph % (Auto) Rush % (Auto) Eos % (Auto) Lymph # Rush # Lymph # (Auto) Rush # (Auto) Seg Neutrophils % Seg Neuts % (Manual) Lymphocytes % (Manual) Seg Neutrophils # Seg Neutrophils # Man Lymphocytes # (Manual) Monocytes % (Manual) Eosinophils % (Manual) Monocytes # (Manual) Eosinophils # (Manual) D-Dimer Heparin Anti-Xa Level ABG pH POC ABG pCO2 POC ABG pO2 ABG pO2 94.7 H ABG HCO3 18.6 L ABG O2 Saturation ABG Base Excess -5.5 L ABG Hemoglobin 7.9 L ABG Oxyhemoglobin VBG pH ABG Sodium ABG Potassium ABG Glucose Oxyhemoglobin Sodium Potassium Chloride Carbon Dioxide BUN Creatinine Glucose POC Glucose 160 H Lactic Acid Calcium Ferritin AST Alkaline Phosphatase Magnesium Lactate Dehydrogenase Total Creatine Kinase CK-MB (CK-2) C-Reactive Protein Total Protein Albumin Troponin T HDL Cholesterol Arterial Blood Glucose Urine WBC (Auto) Urine Creatinine Urine Total Protein Coronavirus (PCR) Crossmatch 05/31/20 05/31/20 05/31/20 12:20 13:03 18:13 WBC RBC Hgb Hct MCHC RDW Lymph % (Auto) Rush % (Auto) Eos % (Auto) Lymph # Rush # Lymph # (Auto) Rush # (Auto) Seg Neutrophils % Seg Neuts % (Manual) Lymphocytes % (Manual) Seg Neutrophils # Seg Neutrophils # Man Lymphocytes # (Manual) Monocytes % (Manual) Eosinophils % (Manual) Monocytes # (Manual) Eosinophils # (Manual) D-Dimer Heparin Anti-Xa Level ABG pH POC ABG pCO2 POC ABG pO2 ABG pO2 ABG HCO3 ABG O2 Saturation ABG Base Excess ABG Hemoglobin ABG Oxyhemoglobin VBG pH ABG Sodium ABG Potassium ABG Glucose Oxyhemoglobin Sodium Potassium Chloride Carbon Dioxide 18 L BUN 48 H Creatinine 1.6 H Glucose 115 H POC Glucose 128 H 159 H Lactic Acid Calcium 8.3 L Ferritin AST Alkaline Phosphatase Magnesium Lactate Dehydrogenase Total Creatine Kinase CK-MB (CK-2) C-Reactive Protein Total Protein 5.4 L Albumin 2.4 L Troponin T HDL Cholesterol Arterial Blood Glucose Urine WBC (Auto) Urine Creatinine Urine Total Protein Coronavirus (PCR) Crossmatch 05/31/20 06/01/20 06/01/20 23:51 04:00 05:48 WBC RBC Hgb Hct MCHC RDW Lymph % (Auto) Rush % (Auto) Eos % (Auto) Lymph # Rush # Lymph # (Auto) Rush # (Auto) Seg Neutrophils % Seg Neuts % (Manual) Lymphocytes % (Manual) Seg Neutrophils # Seg Neutrophils # Man Lymphocytes # (Manual) Monocytes % (Manual) Eosinophils % (Manual) Monocytes # (Manual) Eosinophils # (Manual) D-Dimer Heparin Anti-Xa Level ABG pH POC ABG pCO2 POC ABG pO2 ABG pO2 109.8 H ABG HCO3 18.8 L ABG O2 Saturation ABG Base Excess -5.9 L ABG Hemoglobin 7.8 L ABG Oxyhemoglobin VBG pH ABG Sodium ABG Potassium ABG Glucose Oxyhemoglobin Sodium Potassium Chloride Carbon Dioxide BUN Creatinine Glucose POC Glucose 171 H 133 H Lactic Acid Calcium Ferritin AST Alkaline Phosphatase Magnesium Lactate Dehydrogenase Total Creatine Kinase CK-MB (CK-2) C-Reactive Protein Total Protein Albumin Troponin T HDL Cholesterol Arterial Blood Glucose Urine WBC (Auto) Urine Creatinine Urine Total Protein Coronavirus (PCR) Crossmatch 06/01/20 06/01/20 06/02/20 12:28 17:29 00:08 WBC RBC Hgb Hct MCHC RDW Lymph % (Auto) Rush % (Auto) Eos % (Auto) Lymph # Rush # Lymph # (Auto) Rush # (Auto) Seg Neutrophils % Seg Neuts % (Manual) Lymphocytes % (Manual) Seg Neutrophils # Seg Neutrophils # Man Lymphocytes # (Manual) Monocytes % (Manual) Eosinophils % (Manual) Monocytes # (Manual) Eosinophils # (Manual) D-Dimer Heparin Anti-Xa Level ABG pH POC ABG pCO2 POC ABG pO2 ABG pO2 ABG HCO3 ABG O2 Saturation ABG Base Excess ABG Hemoglobin ABG Oxyhemoglobin VBG pH ABG Sodium ABG Potassium ABG Glucose Oxyhemoglobin Sodium Potassium Chloride Carbon Dioxide BUN Creatinine Glucose POC Glucose 199 H 209 H 162 H Lactic Acid Calcium Ferritin AST Alkaline Phosphatase Magnesium Lactate Dehydrogenase Total Creatine Kinase CK-MB (CK-2) C-Reactive Protein Total Protein Albumin Troponin T HDL Cholesterol Arterial Blood Glucose Urine WBC (Auto) Urine Creatinine Urine Total Protein Coronavirus (PCR) Crossmatch 06/02/20 06/02/20 06/02/20 04:20 04:20 04:44 WBC RBC Hgb 10.0 L Hct MCHC RDW Lymph % (Auto) Rush % (Auto) Eos % (Auto) Lymph # Rush # Lymph # (Auto) Rush # (Auto) Seg Neutrophils % Seg Neuts % (Manual) Lymphocytes % (Manual) Seg Neutrophils # Seg Neutrophils # Man Lymphocytes # (Manual) Monocytes % (Manual) Eosinophils % (Manual) Monocytes # (Manual) Eosinophils # (Manual) D-Dimer Heparin Anti-Xa Level 0.10 L ABG pH POC ABG pCO2 POC ABG pO2 ABG pO2 150.6 H ABG HCO3 ABG O2 Saturation ABG Base Excess -4.1 L ABG Hemoglobin 11.8 L ABG Oxyhemoglobin VBG pH ABG Sodium ABG Potassium ABG Glucose Oxyhemoglobin Sodium Potassium Chloride Carbon Dioxide BUN Creatinine Glucose POC Glucose Lactic Acid Calcium Ferritin AST Alkaline Phosphatase Magnesium Lactate Dehydrogenase Total Creatine Kinase CK-MB (CK-2) C-Reactive Protein Total Protein Albumin Troponin T HDL Cholesterol Arterial Blood Glucose Urine WBC (Auto) Urine Creatinine Urine Total Protein Coronavirus (PCR) Crossmatch 06/02/20 06/02/20 06/02/20 05:53 12:04 13:49 WBC RBC Hgb Hct MCHC RDW Lymph % (Auto) Rush % (Auto) Eos % (Auto) Lymph # Rush # Lymph # (Auto) Rush # (Auto) Seg Neutrophils % Seg Neuts % (Manual) Lymphocytes % (Manual) Seg Neutrophils # Seg Neutrophils # Man Lymphocytes # (Manual) Monocytes % (Manual) Eosinophils % (Manual) Monocytes # (Manual) Eosinophils # (Manual) D-Dimer Heparin Anti-Xa Level 0.28 L ABG pH POC ABG pCO2 POC ABG pO2 ABG pO2 ABG HCO3 ABG O2 Saturation ABG Base Excess ABG Hemoglobin ABG Oxyhemoglobin VBG pH ABG Sodium ABG Potassium ABG Glucose Oxyhemoglobin Sodium Potassium Chloride Carbon Dioxide BUN Creatinine Glucose POC Glucose 149 H 220 H Lactic Acid Calcium Ferritin AST Alkaline Phosphatase Magnesium Lactate Dehydrogenase Total Creatine Kinase CK-MB (CK-2) C-Reactive Protein Total Protein Albumin Troponin T HDL Cholesterol Arterial Blood Glucose Urine WBC (Auto) Urine Creatinine Urine Total Protein Coronavirus (PCR) Crossmatch 06/02/20 06/02/20 06/03/20 13:49 18:31 00:42 WBC RBC Hgb Hct MCHC RDW Lymph % (Auto) Rush % (Auto) Eos % (Auto) Lymph # Rush # Lymph # (Auto) Rush # (Auto) Seg Neutrophils % Seg Neuts % (Manual) Lymphocytes % (Manual) Seg Neutrophils # Seg Neutrophils # Man Lymphocytes # (Manual) Monocytes % (Manual) Eosinophils % (Manual) Monocytes # (Manual) Eosinophils # (Manual) D-Dimer 769.68 H Heparin Anti-Xa Level ABG pH POC ABG pCO2 POC ABG pO2 ABG pO2 ABG HCO3 ABG O2 Saturation ABG Base Excess ABG Hemoglobin ABG Oxyhemoglobin VBG pH ABG Sodium ABG Potassium ABG Glucose Oxyhemoglobin Sodium Potassium Chloride Carbon Dioxide BUN Creatinine Glucose POC Glucose 225 H 212 H Lactic Acid Calcium Ferritin AST Alkaline Phosphatase Magnesium Lactate Dehydrogenase Total Creatine Kinase CK-MB (CK-2) C-Reactive Protein Total Protein Albumin Troponin T HDL Cholesterol Arterial Blood Glucose Urine WBC (Auto) Urine Creatinine Urine Total Protein Coronavirus (PCR) Crossmatch 06/03/20 06/03/20 06/03/20 05:16 05:16 05:25 WBC 11.4 H RBC Hgb Hct MCHC RDW 16.4 H Lymph % (Auto) Rush % (Auto) Eos % (Auto) Lymph # Rush # Lymph # (Auto) Rush # (Auto) Seg Neutrophils % Seg Neuts % (Manual) Lymphocytes % (Manual) Seg Neutrophils # Seg Neutrophils # Man Lymphocytes # (Manual) Monocytes % (Manual) Eosinophils % (Manual) Monocytes # (Manual) Eosinophils # (Manual) D-Dimer Heparin Anti-Xa Level ABG pH POC ABG pCO2 POC ABG pO2 ABG pO2 160.9 H ABG HCO3 19.4 L ABG O2 Saturation ABG Base Excess -4.9 L ABG Hemoglobin 7.0 L ABG Oxyhemoglobin VBG pH ABG Sodium ABG Potassium ABG Glucose Oxyhemoglobin Sodium Potassium Chloride Carbon Dioxide 18 L BUN 65 H Creatinine 2.0 H Glucose 175 H POC Glucose Lactic Acid Calcium 8.0 L Ferritin AST Alkaline Phosphatase Magnesium Lactate Dehydrogenase Total Creatine Kinase CK-MB (CK-2) C-Reactive Protein Total Protein 5.5 L Albumin 2.2 L Troponin T HDL Cholesterol Arterial Blood Glucose Urine WBC (Auto) Urine Creatinine Urine Total Protein Coronavirus (PCR) Crossmatch 06/03/20 06/03/20 06/03/20 06:07 11:58 18:24 WBC RBC Hgb Hct MCHC RDW Lymph % (Auto) [place] % (Auto) Eos % (Auto) Lymph # Rush # Lymph # (Auto) [place] # (Auto) Seg Neutrophils % Seg Neuts % (Manual) Lymphocytes % (Manual) Seg Neutrophils # Seg Neutrophils # Man Lymphocytes # (Manual) Monocytes % (Manual) Eosinophils % (Manual) Monocytes # (Manual) Eosinophils # (Manual) D-Dimer Heparin Anti-Xa Level ABG pH POC ABG pCO2 POC ABG pO2 ABG pO2 ABG HCO3 ABG O2 Saturation ABG Base Excess ABG Hemoglobin ABG Oxyhemoglobin VBG pH ABG Sodium ABG Potassium ABG Glucose Oxyhemoglobin Sodium Potassium Chloride Carbon Dioxide BUN Creatinine Glucose POC Glucose 177 H 163 H 211 H Lactic Acid Calcium Ferritin AST Alkaline Phosphatase Magnesium Lactate Dehydrogenase Total Creatine Kinase CK-MB (CK-2) C-Reactive Protein Total Protein Albumin Troponin T HDL Cholesterol Arterial Blood Glucose Urine WBC (Auto) Urine Creatinine Urine Total Protein Coronavirus (PCR) Crossmatch 06/03/20 06/03/20 06/04/20 21:50 Unknown 00:26 WBC RBC Hgb Hct MCHC RDW Lymph % (Auto) [place] % (Auto) Eos % (Auto) Lymph # Rush # Lymph # (Auto) [place] # (Auto) Seg Neutrophils % Seg Neuts % (Manual) Lymphocytes % (Manual) Seg Neutrophils # Seg Neutrophils # Man Lymphocytes # (Manual) Monocytes % (Manual) Eosinophils % (Manual) Monocytes # (Manual) Eosinophils # (Manual) D-Dimer Heparin Anti-Xa Level ABG pH POC ABG pCO2 POC ABG pO2 ABG pO2 ABG HCO3 ABG O2 Saturation ABG Base Excess ABG Hemoglobin ABG Oxyhemoglobin VBG pH ABG Sodium ABG Potassium ABG Glucose Oxyhemoglobin Sodium 135 L Potassium Chloride Carbon Dioxide 18 L BUN Creatinine Glucose POC Glucose 241 H Lactic Acid Calcium Ferritin AST Alkaline Phosphatase Magnesium Lactate Dehydrogenase Total Creatine Kinase CK-MB (CK-2) C-Reactive Protein Total Protein Albumin Troponin T HDL Cholesterol Arterial Blood Glucose Urine WBC (Auto) 11.0 H Urine Creatinine Urine Total Protein Coronavirus (PCR) Crossmatch 06/04/20 06/04/20 06/04/20 03:35 04:19 04:19 WBC RBC 3.15 L Hgb 8.9 L Hct 26.8 L D MCHC RDW 15.9 H Lymph % (Auto) 6.0 L [place] % (Auto) Eos % (Auto) Lymph # 0.6 L [place] # Lymph # (Auto) [place] # (Auto) Seg Neutrophils % 86.6 H Seg Neuts % (Manual) Lymphocytes % (Manual) Seg Neutrophils # 9.1 H Seg Neutrophils # Man Lymphocytes # (Manual) Monocytes % (Manual) Eosinophils % (Manual) Monocytes # (Manual) Eosinophils # (Manual) D-Dimer Heparin Anti-Xa Level ABG pH 7.331 L POC ABG pCO2 POC ABG pO2 ABG pO2 ABG HCO3 ABG O2 Saturation ABG Base Excess -4.7 L ABG Hemoglobin 11.0 L ABG Oxyhemoglobin VBG pH ABG Sodium ABG Potassium ABG Glucose Oxyhemoglobin 93.9 L Sodium 136 L Potassium Chloride Carbon Dioxide 20 L BUN 73 H Creatinine 2.0 H Glucose 192 H POC Glucose Lactic Acid Calcium 8.0 L Ferritin AST Alkaline Phosphatase Magnesium Lactate Dehydrogenase 271 H Total Creatine Kinase CK-MB (CK-2) C-Reactive Protein 2.20 H Total Protein 5.0 L Albumin 2.0 L Troponin T HDL Cholesterol Arterial Blood Glucose Urine WBC (Auto) Urine Creatinine Urine Total Protein Coronavirus (PCR) Crossmatch 06/04/20 06/04/20 06/04/20 04:19 05:51 11:48 WBC RBC Hgb Hct MCHC RDW Lymph % (Auto) [place] % (Auto) Eos % (Auto) Lymph # Rush # Lymph # (Auto) [place] # (Auto) Seg Neutrophils % Seg Neuts % (Manual) Lymphocytes % (Manual) Seg Neutrophils # Seg Neutrophils # Man Lymphocytes # (Manual) Monocytes % (Manual) Eosinophils % (Manual) Monocytes # (Manual) Eosinophils # (Manual) D-Dimer 414.52 H Heparin Anti-Xa Level ABG pH POC ABG pCO2 POC ABG pO2 ABG pO2 ABG HCO3 ABG O2 Saturation ABG Base Excess ABG Hemoglobin ABG Oxyhemoglobin VBG pH ABG Sodium ABG Potassium ABG Glucose Oxyhemoglobin Sodium Potassium Chloride Carbon Dioxide BUN Creatinine Glucose POC Glucose 179 H 213 H Lactic Acid Calcium Ferritin AST Alkaline Phosphatase Magnesium Lactate Dehydrogenase Total Creatine Kinase CK-MB (CK-2) C-Reactive Protein Total Protein Albumin Troponin T HDL Cholesterol Arterial Blood Glucose Urine WBC (Auto) Urine Creatinine Urine Total Protein Coronavirus (PCR) Crossmatch 06/04/20 06/05/20 06/05/20 18:25 00:16 05:00 WBC RBC Hgb Hct MCHC RDW Lymph % (Auto) [place] % (Auto) Eos % (Auto) Lymph # Rush # Lymph # (Auto) [place] # (Auto) Seg Neutrophils % Seg Neuts % (Manual) Lymphocytes % (Manual) Seg Neutrophils # Seg Neutrophils # Man Lymphocytes # (Manual) Monocytes % (Manual) Eosinophils % (Manual) Monocytes # (Manual) Eosinophils # (Manual) D-Dimer Heparin Anti-Xa Level ABG pH 7.286 L POC ABG pCO2 POC ABG pO2 ABG pO2 96.2 H ABG HCO3 ABG O2 Saturation ABG Base Excess -6.3 L ABG Hemoglobin 8.8 L ABG Oxyhemoglobin VBG pH ABG Sodium ABG Potassium ABG Glucose Oxyhemoglobin 94.8 L Sodium Potassium Chloride Carbon Dioxide BUN Creatinine Glucose POC Glucose 238 H 183 H Lactic Acid Calcium Ferritin AST Alkaline Phosphatase Magnesium Lactate Dehydrogenase Total Creatine Kinase CK-MB (CK-2) C-Reactive Protein Total Protein Albumin Troponin T HDL Cholesterol Arterial Blood Glucose Urine WBC (Auto) Urine Creatinine Urine Total Protein Coronavirus (PCR) Crossmatch 06/05/20 06/05/20 06/05/20 05:39 07:25 07:25 WBC RBC 2.97 L Hgb 8.7 L Hct 25.7 L MCHC RDW 16.0 H Lymph % (Auto) 8.8 L [place] % (Auto) 13.3 H Eos % (Auto) Lymph # 0.8 L [place] # 1.3 H Lymph # (Auto) [place] # (Auto) Seg Neutrophils % 77.3 H Seg Neuts % (Manual) Lymphocytes % (Manual) Seg Neutrophils # Seg Neutrophils # Man Lymphocytes # (Manual) Monocytes % (Manual) Eosinophils % (Manual) Monocytes # (Manual) Eosinophils # (Manual) D-Dimer Heparin Anti-Xa Level ABG pH POC ABG pCO2 POC ABG pO2 ABG pO2 ABG HCO3 ABG O2 Saturation ABG Base Excess ABG Hemoglobin ABG Oxyhemoglobin VBG pH ABG Sodium ABG Potassium ABG Glucose Oxyhemoglobin Sodium 133 L Potassium Chloride Carbon Dioxide 17 L BUN 89 H Creatinine 2.8 H Glucose 176 H POC Glucose 149 H Lactic Acid Calcium 7.7 L Ferritin AST Alkaline Phosphatase Magnesium Lactate Dehydrogenase Total Creatine Kinase CK-MB (CK-2) C-Reactive Protein Total Protein 4.2 L Albumin 1.9 L Troponin T HDL Cholesterol Arterial Blood Glucose Urine WBC (Auto) Urine Creatinine Urine Total Protein Coronavirus (PCR) Crossmatch 06/05/20 06/05/20 06/05/20 07:25 12:05 15:41 WBC RBC Hgb Hct MCHC RDW Lymph % (Auto) [place] % (Auto) Eos % (Auto) Lymph # Rush # Lymph # (Auto) [place] # (Auto) Seg Neutrophils % Seg Neuts % (Manual) Lymphocytes % (Manual) Seg Neutrophils # Seg Neutrophils # Man Lymphocytes # (Manual) Monocytes % (Manual) Eosinophils % (Manual) Monocytes # (Manual) Eosinophils # (Manual) D-Dimer Heparin Anti-Xa Level 0.76 H 0.81 H ABG pH POC ABG pCO2 POC ABG pO2 ABG pO2 ABG HCO3 ABG O2 Saturation ABG Base Excess ABG Hemoglobin ABG Oxyhemoglobin VBG pH ABG Sodium ABG Potassium ABG Glucose Oxyhemoglobin Sodium Potassium Chloride Carbon Dioxide BUN Creatinine Glucose POC Glucose 198 H Lactic Acid Calcium Ferritin AST Alkaline Phosphatase Magnesium Lactate Dehydrogenase Total Creatine Kinase CK-MB (CK-2) C-Reactive Protein Total Protein Albumin Troponin T HDL Cholesterol Arterial Blood Glucose Urine WBC (Auto) Urine Creatinine Urine Total Protein Coronavirus (PCR) Crossmatch 06/05/20 06/05/20 06/06/20 18:08 23:25 04:00 WBC RBC Hgb Hct MCHC RDW Lymph % (Auto) [place] % (Auto) Eos % (Auto) Lymph # Rush # Lymph # (Auto) [place] # (Auto) Seg Neutrophils % Seg Neuts % (Manual) Lymphocytes % (Manual) Seg Neutrophils # Seg Neutrophils # Man Lymphocytes # (Manual) Monocytes % (Manual) Eosinophils % (Manual) Monocytes # (Manual) Eosinophils # (Manual) D-Dimer Heparin Anti-Xa Level ABG pH POC ABG pCO2 POC ABG pO2 ABG pO2 ABG HCO3 ABG O2 Saturation ABG Base Excess ABG Hemoglobin ABG Oxyhemoglobin VBG pH ABG Sodium ABG Potassium ABG Glucose Oxyhemoglobin Sodium Potassium Chloride Carbon Dioxide BUN Creatinine Glucose POC Glucose 223 H 169 H Lactic Acid Calcium Ferritin AST Alkaline Phosphatase Magnesium Lactate Dehydrogenase Total Creatine Kinase CK-MB (CK-2) C-Reactive Protein Total Protein Albumin Troponin T HDL Cholesterol Arterial Blood Glucose Urine WBC (Auto) 15.0 H Urine Creatinine Urine Total Protein Coronavirus (PCR) Crossmatch 06/06/20 06/06/20 06/06/20 04:00 05:33 05:38 WBC RBC 2.97 L Hgb 8.7 L Hct 26.8 L MCHC RDW 16.8 H Lymph % (Auto) [place] % (Auto) Eos % (Auto) Lymph # Rush # Lymph # (Auto) [place] # (Auto) Seg Neutrophils % Seg Neuts % (Manual) Lymphocytes % (Manual) Seg Neutrophils # Seg Neutrophils # Man Lymphocytes # (Manual) Monocytes % (Manual) Eosinophils % (Manual) Monocytes # (Manual) Eosinophils # (Manual) D-Dimer Heparin Anti-Xa Level ABG pH POC ABG pCO2 POC ABG pO2 ABG pO2 ABG HCO3 ABG O2 Saturation ABG Base Excess ABG Hemoglobin ABG Oxyhemoglobin VBG pH ABG Sodium ABG Potassium ABG Glucose Oxyhemoglobin Sodium Potassium Chloride Carbon Dioxide BUN Creatinine Glucose POC Glucose 186 H Lactic Acid Calcium Ferritin AST Alkaline Phosphatase Magnesium Lactate Dehydrogenase Total Creatine Kinase CK-MB (CK-2) C-Reactive Protein Total Protein Albumin Troponin T HDL Cholesterol Arterial Blood Glucose Urine WBC (Auto) Urine Creatinine 82.2 H Urine Total Protein 196 H Coronavirus (PCR) Crossmatch 06/06/20 06/06/20 06/06/20 05:38 12:25 17:03 WBC RBC Hgb Hct MCHC RDW Lymph % (Auto) [place] % (Auto) Eos % (Auto) Lymph # Rush # Lymph # (Auto) [place] # (Auto) Seg Neutrophils % Seg Neuts % (Manual) Lymphocytes % (Manual) Seg Neutrophils # Seg Neutrophils # Man Lymphocytes # (Manual) Monocytes % (Manual) Eosinophils % (Manual) Monocytes # (Manual) Eosinophils # (Manual) D-Dimer Heparin Anti-Xa Level ABG pH POC ABG pCO2 POC ABG pO2 ABG pO2 ABG HCO3 ABG O2 Saturation ABG Base Excess ABG Hemoglobin ABG Oxyhemoglobin VBG pH ABG Sodium ABG Potassium ABG Glucose Oxyhemoglobin Sodium 134 L Potassium 5.2 H Chloride Carbon Dioxide 18 L BUN 97 H Creatinine 2.5 H Glucose 193 H POC Glucose 239 H 252 H Lactic Acid Calcium 7.5 L Ferritin AST Alkaline Phosphatase Magnesium Lactate Dehydrogenase Total Creatine Kinase CK-MB (CK-2) C-Reactive Protein Total Protein 4.1 L Albumin 1.9 L Troponin T HDL Cholesterol Arterial Blood Glucose Urine WBC (Auto) Urine Creatinine Urine Total Protein Coronavirus (PCR) Crossmatch 06/07/20 06/07/20 06/07/20 00:16 01:49 04:00 WBC RBC 2.91 L Hgb 8.4 L Hct 25.0 L MCHC RDW 16.1 H Lymph % (Auto) 5.7 L [place] % (Auto) 10.5 H Eos % (Auto) Lymph # 0.6 L Rush # 1.1 H Lymph # (Auto) [place] # (Auto) Seg Neutrophils % 83.6 H Seg Neuts % (Manual) Lymphocytes % (Manual) Seg Neutrophils # 9.1 H Seg Neutrophils # Man Lymphocytes # (Manual) Monocytes % (Manual) Eosinophils % (Manual) Monocytes # (Manual) Eosinophils # (Manual) D-Dimer Heparin Anti-Xa Level 0.26 L ABG pH POC ABG pCO2 POC ABG pO2 ABG pO2 ABG HCO3 ABG O2 Saturation ABG Base Excess ABG Hemoglobin ABG Oxyhemoglobin VBG pH ABG Sodium ABG Potassium ABG Glucose Oxyhemoglobin Sodium Potassium Chloride Carbon Dioxide BUN Creatinine Glucose POC Glucose 173 H Lactic Acid Calcium Ferritin AST Alkaline Phosphatase Magnesium Lactate Dehydrogenase Total Creatine Kinase CK-MB (CK-2) C-Reactive Protein Total Protein Albumin Troponin T HDL Cholesterol Arterial Blood Glucose Urine WBC (Auto) Urine Creatinine Urine Total Protein Coronavirus (PCR) Crossmatch 06/07/20 06/07/20 06/07/20 04:00 04:54 05:51 WBC RBC Hgb Hct MCHC RDW Lymph % (Auto) [place] % (Auto) Eos % (Auto) Lymph # Rush # Lymph # (Auto) [place] # (Auto) Seg Neutrophils % Seg Neuts % (Manual) Lymphocytes % (Manual) Seg Neutrophils # Seg Neutrophils # Man Lymphocytes # (Manual) Monocytes % (Manual) Eosinophils % (Manual) Monocytes # (Manual) Eosinophils # (Manual) D-Dimer Heparin Anti-Xa Level ABG pH 7.317 L POC ABG pCO2 POC ABG pO2 ABG pO2 71.4 L ABG HCO3 ABG O2 Saturation 94.3 L ABG Base Excess -4.8 L ABG Hemoglobin 7.1 L ABG Oxyhemoglobin VBG pH ABG Sodium ABG Potassium ABG Glucose Oxyhemoglobin 92.2 L Sodium 133 L Potassium Chloride Carbon Dioxide 18 L BUN 100 H Creatinine 2.5 H Glucose 158 H POC Glucose 168 H Lactic Acid Calcium 7.6 L Ferritin AST Alkaline Phosphatase Magnesium Lactate Dehydrogenase Total Creatine Kinase CK-MB (CK-2) C-Reactive Protein Total Protein 4.7 L Albumin 2.0 L Troponin T HDL Cholesterol Arterial Blood Glucose Urine WBC (Auto) Urine Creatinine Urine Total Protein Coronavirus (PCR) Crossmatch 06/07/20 06/07/20 06/07/20 12:03 17:17 20:10 WBC RBC Hgb Hct MCHC RDW Lymph % (Auto) [place] % (Auto) Eos % (Auto) Lymph # Rush # Lymph # (Auto) [place] # (Auto) Seg Neutrophils % Seg Neuts % (Manual) Lymphocytes % (Manual) Seg Neutrophils # Seg Neutrophils # Man Lymphocytes # (Manual) Monocytes % (Manual) Eosinophils % (Manual) Monocytes # (Manual) Eosinophils # (Manual) D-Dimer Heparin Anti-Xa Level 0.17 L ABG pH POC ABG pCO2 POC ABG pO2 ABG pO2 ABG HCO3 ABG O2 Saturation ABG Base Excess ABG Hemoglobin ABG Oxyhemoglobin VBG pH ABG Sodium ABG Potassium ABG Glucose Oxyhemoglobin Sodium Potassium Chloride Carbon Dioxide BUN Creatinine Glucose POC Glucose 276 H 281 H Lactic Acid Calcium Ferritin AST Alkaline Phosphatase Magnesium Lactate Dehydrogenase Total Creatine Kinase CK-MB (CK-2) C-Reactive Protein Total Protein Albumin Troponin T HDL Cholesterol Arterial Blood Glucose Urine WBC (Auto) Urine Creatinine Urine Total Protein Coronavirus (PCR) Crossmatch 06/08/20 06/08/20 06/08/20 00:02 04:47 04:47 WBC 16.4 H RBC 3.07 L Hgb 8.6 L Hct 26.5 L MCHC RDW 16.3 H Lymph % (Auto) [place] % (Auto) Eos % (Auto) Lymph # Rush # Lymph # (Auto) [place] # (Auto) Seg Neutrophils % Seg Neuts % (Manual) 90.0 H Lymphocytes % (Manual) 3.0 L Seg Neutrophils # Seg Neutrophils # Man 14.8 H Lymphocytes # (Manual) 0.5 L Monocytes % (Manual) Eosinophils % (Manual) Monocytes # (Manual) 1.1 H Eosinophils # (Manual) D-Dimer Heparin Anti-Xa Level ABG pH POC ABG pCO2 POC ABG pO2 ABG pO2 ABG HCO3 ABG O2 Saturation ABG Base Excess ABG Hemoglobin ABG Oxyhemoglobin VBG pH ABG Sodium ABG Potassium ABG Glucose Oxyhemoglobin Sodium 129 L Potassium Chloride 95.6 L Carbon Dioxide 17 L BUN 106 H Creatinine 2.5 H Glucose 213 H POC Glucose 242 H Lactic Acid Calcium 7.6 L Ferritin AST Alkaline Phosphatase Magnesium Lactate Dehydrogenase Total Creatine Kinase CK-MB (CK-2) C-Reactive Protein Total Protein 5.0 L Albumin 2.1 L Troponin T HDL Cholesterol Arterial Blood Glucose Urine WBC (Auto) Urine Creatinine Urine Total Protein Coronavirus (PCR) Crossmatch 06/08/20 06/08/20 06/08/20 05:40 11:55 17:54 WBC RBC Hgb Hct MCHC RDW Lymph % (Auto) [place] % (Auto) Eos % (Auto) Lymph # Rush # Lymph # (Auto) [place] # (Auto) Seg Neutrophils % Seg Neuts % (Manual) Lymphocytes % (Manual) Seg Neutrophils # Seg Neutrophils # Man Lymphocytes # (Manual) Monocytes % (Manual) Eosinophils % (Manual) Monocytes # (Manual) Eosinophils # (Manual) D-Dimer Heparin Anti-Xa Level ABG pH POC ABG pCO2 POC ABG pO2 ABG pO2 ABG HCO3 ABG O2 Saturation ABG Base Excess ABG Hemoglobin ABG Oxyhemoglobin VBG pH ABG Sodium ABG Potassium ABG Glucose Oxyhemoglobin Sodium Potassium Chloride Carbon Dioxide BUN Creatinine Glucose POC Glucose 221 H 218 H 163 H Lactic Acid Calcium Ferritin AST Alkaline Phosphatase Magnesium Lactate Dehydrogenase Total Creatine Kinase CK-MB (CK-2) C-Reactive Protein Total Protein Albumin Troponin T HDL Cholesterol Arterial Blood Glucose Urine WBC (Auto) Urine Creatinine Urine Total Protein Coronavirus (PCR) Crossmatch 06/08/20 06/09/20 06/09/20 22:01 00:09 05:16 WBC 19.0 H RBC 3.35 L Hgb 9.2 L Hct 28.5 L MCHC RDW 16.3 H Lymph % (Auto) [place] % (Auto) Eos % (Auto) Lymph # Rush # Lymph # (Auto) [place] # (Auto) Seg Neutrophils % Seg Neuts % (Manual) 85.0 H Lymphocytes % (Manual) 7.0 L Seg Neutrophils # Seg Neutrophils # Man 16.2 H Lymphocytes # (Manual) Monocytes % (Manual) Eosinophils % (Manual) Monocytes # (Manual) 1.3 H Eosinophils # (Manual) D-Dimer Heparin Anti-Xa Level ABG pH POC ABG pCO2 POC ABG pO2 ABG pO2 ABG HCO3 ABG O2 Saturation ABG Base Excess ABG Hemoglobin ABG Oxyhemoglobin VBG pH ABG Sodium ABG Potassium ABG Glucose Oxyhemoglobin Sodium Potassium Chloride Carbon Dioxide BUN Creatinine Glucose POC Glucose 182 H 150 H Lactic Acid Calcium Ferritin AST Alkaline Phosphatase Magnesium Lactate Dehydrogenase Total Creatine Kinase CK-MB (CK-2) C-Reactive Protein Total Protein Albumin Troponin T HDL Cholesterol Arterial Blood Glucose Urine WBC (Auto) Urine Creatinine Urine Total Protein Coronavirus (PCR) Crossmatch 06/09/20 06/09/20 06/09/20 05:16 05:24 11:29 WBC RBC Hgb Hct MCHC RDW Lymph % (Auto) [place] % (Auto) Eos % (Auto) Lymph # Rush # Lymph # (Auto) [place] # (Auto) Seg Neutrophils % Seg Neuts % (Manual) Lymphocytes % (Manual) Seg Neutrophils # Seg Neutrophils # Man Lymphocytes # (Manual) Monocytes % (Manual) Eosinophils % (Manual) Monocytes # (Manual) Eosinophils # (Manual) D-Dimer Heparin Anti-Xa Level ABG pH POC ABG pCO2 POC ABG pO2 ABG pO2 ABG HCO3 ABG O2 Saturation ABG Base Excess ABG Hemoglobin ABG Oxyhemoglobin VBG pH ABG Sodium ABG Potassium ABG Glucose Oxyhemoglobin Sodium 133 L Potassium Chloride Carbon Dioxide 19 L BUN 109 H Creatinine 2.1 H Glucose 133 H POC Glucose 128 H 119 H Lactic Acid Calcium 7.7 L Ferritin AST Alkaline Phosphatase < 5 L Magnesium Lactate Dehydrogenase Total Creatine Kinase CK-MB (CK-2) C-Reactive Protein Total Protein 4.6 L Albumin < 0.2 L Troponin T HDL Cholesterol Arterial Blood Glucose Urine WBC (Auto) Urine Creatinine Urine Total Protein Coronavirus (PCR) Crossmatch 06/09/20 06/10/20 06/10/20 17:32 00:00 05:49 WBC RBC Hgb Hct MCHC RDW Lymph % (Auto) [place] % (Auto) Eos % (Auto) Lymph # Rush # Lymph # (Auto) [place] # (Auto) Seg Neutrophils % Seg Neuts % (Manual) Lymphocytes % (Manual) Seg Neutrophils # Seg Neutrophils # Man Lymphocytes # (Manual) Monocytes % (Manual) Eosinophils % (Manual) Monocytes # (Manual) Eosinophils # (Manual) D-Dimer Heparin Anti-Xa Level 0.19 L ABG pH POC ABG pCO2 POC ABG pO2 ABG pO2 ABG HCO3 ABG O2 Saturation ABG Base Excess ABG Hemoglobin ABG Oxyhemoglobin VBG pH ABG Sodium ABG Potassium ABG Glucose Oxyhemoglobin Sodium Potassium Chloride Carbon Dioxide BUN Creatinine Glucose POC Glucose 106 H 117 H Lactic Acid Calcium Ferritin AST Alkaline Phosphatase Magnesium Lactate Dehydrogenase Total Creatine Kinase CK-MB (CK-2) C-Reactive Protein Total Protein Albumin Troponin T HDL Cholesterol Arterial Blood Glucose Urine WBC (Auto) Urine Creatinine Urine Total Protein Coronavirus (PCR) Crossmatch 06/10/20 06/10/20 06/10/20 05:54 07:40 11:40 WBC RBC Hgb Hct MCHC RDW Lymph % (Auto) [place] % (Auto) Eos % (Auto) Lymph # Rush # Lymph # (Auto) [place] # (Auto) Seg Neutrophils % Seg Neuts % (Manual) Lymphocytes % (Manual) Seg Neutrophils # Seg Neutrophils # Man Lymphocytes # (Manual) Monocytes % (Manual) Eosinophils % (Manual) Monocytes # (Manual) Eosinophils # (Manual) D-Dimer Heparin Anti-Xa Level ABG pH POC ABG pCO2 POC ABG pO2 ABG pO2 ABG HCO3 ABG O2 Saturation ABG Base Excess ABG Hemoglobin ABG Oxyhemoglobin VBG pH ABG Sodium ABG Potassium ABG Glucose Oxyhemoglobin Sodium 146 H D Potassium Chloride Carbon Dioxide 20 L BUN 99 H Creatinine 1.9 H Glucose 121 H POC Glucose 127 H 138 H Lactic Acid Calcium 8.2 L Ferritin AST Alkaline Phosphatase Magnesium Lactate Dehydrogenase Total Creatine Kinase CK-MB (CK-2) C-Reactive Protein Total Protein Albumin Troponin T HDL Cholesterol Arterial Blood Glucose Urine WBC (Auto) Urine Creatinine Urine Total Protein Coronavirus (PCR) Crossmatch 06/10/20 06/10/20 06/10/20 14:44 17:31 23:22 WBC RBC Hgb Hct MCHC RDW Lymph % (Auto) [place] % (Auto) Eos % (Auto) Lymph # Rush # Lymph # (Auto) [place] # (Auto) Seg Neutrophils % Seg Neuts % (Manual) Lymphocytes % (Manual) Seg Neutrophils # Seg Neutrophils # Man Lymphocytes # (Manual) Monocytes % (Manual) Eosinophils % (Manual) Monocytes # (Manual) Eosinophils # (Manual) D-Dimer Heparin Anti-Xa Level 0.17 L ABG pH POC ABG pCO2 POC ABG pO2 ABG pO2 ABG HCO3 ABG O2 Saturation ABG Base Excess ABG Hemoglobin ABG Oxyhemoglobin VBG pH ABG Sodium ABG Potassium ABG Glucose Oxyhemoglobin Sodium Potassium Chloride Carbon Dioxide BUN Creatinine Glucose POC Glucose 128 H 114 H Lactic Acid Calcium Ferritin AST Alkaline Phosphatase Magnesium Lactate Dehydrogenase Total Creatine Kinase CK-MB (CK-2) C-Reactive Protein Total Protein Albumin Troponin T HDL Cholesterol Arterial Blood Glucose Urine WBC (Auto) Urine Creatinine Urine Total Protein Coronavirus (PCR) Crossmatch 06/11/20 06/11/20 06/11/20 00:22 03:45 03:45 WBC 14.6 H RBC 2.77 L Hgb 7.9 L Hct 24.3 L MCHC RDW 16.8 H Lymph % (Auto) 6.6 L [place] % (Auto) 8.5 H Eos % (Auto) Lymph # 1.0 L Rush # 1.2 H Lymph # (Auto) [place] # (Auto) Seg Neutrophils % 82.9 H Seg Neuts % (Manual) Lymphocytes % (Manual) Seg Neutrophils # 12.1 H Seg Neutrophils # Man Lymphocytes # (Manual) Monocytes % (Manual) Eosinophils % (Manual) Monocytes # (Manual) Eosinophils # (Manual) D-Dimer Heparin Anti-Xa Level 0.24 L ABG pH POC ABG pCO2 POC ABG pO2 ABG pO2 ABG HCO3 ABG O2 Saturation ABG Base Excess ABG Hemoglobin ABG Oxyhemoglobin VBG pH ABG Sodium ABG Potassium ABG Glucose Oxyhemoglobin Sodium Potassium Chloride Carbon Dioxide 20 L BUN 88 H Creatinine 1.5 H Glucose 111 H POC Glucose Lactic Acid Calcium 8.2 L Ferritin AST Alkaline Phosphatase Magnesium Lactate Dehydrogenase Total Creatine Kinase CK-MB (CK-2) C-Reactive Protein Total Protein Albumin Troponin T HDL Cholesterol Arterial Blood Glucose Urine WBC (Auto) Urine Creatinine Urine Total Protein Coronavirus (PCR) Crossmatch 06/11/20 06/11/20 06/11/20 06:03 10:22 11:11 WBC RBC Hgb Hct MCHC RDW Lymph % (Auto) [place] % (Auto) Eos % (Auto) Lymph # Rush # Lymph # (Auto) [place] # (Auto) Seg Neutrophils % Seg Neuts % (Manual) Lymphocytes % (Manual) Seg Neutrophils # Seg Neutrophils # Man Lymphocytes # (Manual) Monocytes % (Manual) Eosinophils % (Manual) Monocytes # (Manual) Eosinophils # (Manual) D-Dimer Heparin Anti-Xa Level 0.26 L ABG pH POC ABG pCO2 POC ABG pO2 ABG pO2 ABG HCO3 ABG O2 Saturation ABG Base Excess ABG Hemoglobin 9.6 L ABG Oxyhemoglobin VBG pH ABG Sodium ABG Potassium ABG Glucose Oxyhemoglobin Sodium Potassium Chloride Carbon Dioxide BUN Creatinine Glucose POC Glucose 114 H Lactic Acid Calcium Ferritin AST Alkaline Phosphatase Magnesium Lactate Dehydrogenase Total Creatine Kinase CK-MB (CK-2) C-Reactive Protein Total Protein Albumin Troponin T HDL Cholesterol Arterial Blood Glucose Urine WBC (Auto) Urine Creatinine Urine Total Protein Coronavirus (PCR) Crossmatch 06/11/20 06/11/20 06/12/20 12:24 17:24 00:21 WBC RBC Hgb Hct MCHC RDW Lymph % (Auto) [place] % (Auto) Eos % (Auto) Lymph # Rush # Lymph # (Auto) [place] # (Auto) Seg Neutrophils % Seg Neuts % (Manual) Lymphocytes % (Manual) Seg Neutrophils # Seg Neutrophils # Man Lymphocytes # (Manual) Monocytes % (Manual) Eosinophils % (Manual) Monocytes # (Manual) Eosinophils # (Manual) D-Dimer Heparin Anti-Xa Level ABG pH POC ABG pCO2 POC ABG pO2 ABG pO2 ABG HCO3 ABG O2 Saturation ABG Base Excess ABG Hemoglobin ABG Oxyhemoglobin VBG pH ABG Sodium ABG Potassium ABG Glucose Oxyhemoglobin Sodium Potassium Chloride Carbon Dioxide BUN Creatinine Glucose POC Glucose 119 H 126 H 117 H Lactic Acid Calcium Ferritin AST Alkaline Phosphatase Magnesium Lactate Dehydrogenase Total Creatine Kinase CK-MB (CK-2) C-Reactive Protein Total Protein Albumin Troponin T HDL Cholesterol Arterial Blood Glucose Urine WBC (Auto) Urine Creatinine Urine Total Protein Coronavirus (PCR) Crossmatch 06/12/20 06/12/20 06/12/20 02:46 02:46 05:46 WBC 13.2 H RBC 2.83 L Hgb 8.3 L Hct 24.3 L MCHC RDW 16.6 H Lymph % (Auto) 6.2 L [place] % (Auto) 9.5 H Eos % (Auto) Lymph # 0.8 L Rush # 1.3 H Lymph # (Auto) [place] # (Auto) Seg Neutrophils % 81.9 H Seg Neuts % (Manual) Lymphocytes % (Manual) Seg Neutrophils # 10.9 H Seg Neutrophils # Man Lymphocytes # (Manual) Monocytes % (Manual) Eosinophils % (Manual) Monocytes # (Manual) Eosinophils # (Manual) D-Dimer Heparin Anti-Xa Level ABG pH POC ABG pCO2 POC ABG pO2 ABG pO2 ABG HCO3 ABG O2 Saturation ABG Base Excess ABG Hemoglobin ABG Oxyhemoglobin VBG pH ABG Sodium ABG Potassium ABG Glucose Oxyhemoglobin Sodium Potassium 3.5 L Chloride Carbon Dioxide BUN 77 H Creatinine 1.3 H Glucose POC Glucose 132 H Lactic Acid Calcium 8.3 L Ferritin AST Alkaline Phosphatase Magnesium Lactate Dehydrogenase Total Creatine Kinase CK-MB (CK-2) C-Reactive Protein Total Protein Albumin Troponin T HDL Cholesterol Arterial Blood Glucose Urine WBC (Auto) Urine Creatinine Urine Total Protein Coronavirus (PCR) Crossmatch 06/12/20 06/12/20 06/12/20 09:20 12:16 17:48 WBC RBC Hgb Hct MCHC RDW Lymph % (Auto) [place] % (Auto) Eos % (Auto) Lymph # Rush # Lymph # (Auto) [place] # (Auto) Seg Neutrophils % Seg Neuts % (Manual) Lymphocytes % (Manual) Seg Neutrophils # Seg Neutrophils # Man Lymphocytes # (Manual) Monocytes % (Manual) Eosinophils % (Manual) Monocytes # (Manual) Eosinophils # (Manual) D-Dimer Heparin Anti-Xa Level ABG pH POC ABG pCO2 POC ABG pO2 ABG pO2 91.1 H ABG HCO3 ABG O2 Saturation ABG Base Excess ABG Hemoglobin ABG Oxyhemoglobin VBG pH ABG Sodium ABG Potassium ABG Glucose Oxyhemoglobin 94.8 L Sodium Potassium Chloride Carbon Dioxide BUN Creatinine Glucose POC Glucose 167 H 182 H Lactic Acid Calcium Ferritin AST Alkaline Phosphatase Magnesium Lactate Dehydrogenase Total Creatine Kinase CK-MB (CK-2) C-Reactive Protein Total Protein Albumin Troponin T HDL Cholesterol Arterial Blood Glucose Urine WBC (Auto) Urine Creatinine Urine Total Protein Coronavirus (PCR) Crossmatch 06/13/20 06/13/20 06/13/20 00:08 05:37 09:09 WBC RBC Hgb Hct MCHC RDW Lymph % (Auto) [place] % (Auto) Eos % (Auto) Lymph # [place] # Lymph # (Auto) [place] # (Auto) Seg Neutrophils % Seg Neuts % (Manual) Lymphocytes % (Manual) Seg Neutrophils # Seg Neutrophils # Man Lymphocytes # (Manual) Monocytes % (Manual) Eosinophils % (Manual) Monocytes # (Manual) Eosinophils # (Manual) D-Dimer Heparin Anti-Xa Level 0.86 H ABG pH POC ABG pCO2 POC ABG pO2 ABG pO2 ABG HCO3 ABG O2 Saturation ABG Base Excess ABG Hemoglobin ABG Oxyhemoglobin VBG pH ABG Sodium ABG Potassium ABG Glucose Oxyhemoglobin Sodium Potassium Chloride Carbon Dioxide BUN Creatinine Glucose POC Glucose 142 H 119 H Lactic Acid Calcium Ferritin AST Alkaline Phosphatase Magnesium Lactate Dehydrogenase Total Creatine Kinase CK-MB (CK-2) C-Reactive Protein Total Protein Albumin Troponin T HDL Cholesterol Arterial Blood Glucose Urine WBC (Auto) Urine Creatinine Urine Total Protein Coronavirus (PCR) Crossmatch 06/13/20 06/13/20 06/13/20 12:28 17:55 21:17 WBC RBC Hgb Hct MCHC RDW Lymph % (Auto) [place] % (Auto) Eos % (Auto) Lymph # [place] # Lymph # (Auto) [place] # (Auto) Seg Neutrophils % Seg Neuts % (Manual) Lymphocytes % (Manual) Seg Neutrophils # Seg Neutrophils # Man Lymphocytes # (Manual) Monocytes % (Manual) Eosinophils % (Manual) Monocytes # (Manual) Eosinophils # (Manual) D-Dimer Heparin Anti-Xa Level ABG pH POC ABG pCO2 POC ABG pO2 ABG pO2 ABG HCO3 ABG O2 Saturation ABG Base Excess ABG Hemoglobin ABG Oxyhemoglobin VBG pH ABG Sodium ABG Potassium ABG Glucose Oxyhemoglobin Sodium Potassium Chloride Carbon Dioxide BUN 61 H Creatinine Glucose 131 H POC Glucose 165 H 174 H Lactic Acid Calcium Ferritin AST Alkaline Phosphatase Magnesium Lactate Dehydrogenase Total Creatine Kinase CK-MB (CK-2) C-Reactive Protein Total Protein Albumin Troponin T HDL Cholesterol Arterial Blood Glucose Urine WBC (Auto) Urine Creatinine Urine Total Protein Coronavirus (PCR) Crossmatch 06/13/20 06/13/20 06/14/20 21:17 23:50 05:34 WBC RBC Hgb Hct MCHC RDW Lymph % (Auto) [place] % (Auto) Eos % (Auto) Lymph # [place] # Lymph # (Auto) [place] # (Auto) Seg Neutrophils % Seg Neuts % (Manual) Lymphocytes % (Manual) Seg Neutrophils # Seg Neutrophils # Man Lymphocytes # (Manual) Monocytes % (Manual) Eosinophils % (Manual) Monocytes # (Manual) Eosinophils # (Manual) D-Dimer Heparin Anti-Xa Level 0.72 H ABG pH POC ABG pCO2 POC ABG pO2 ABG pO2 ABG HCO3 ABG O2 Saturation ABG Base Excess ABG Hemoglobin ABG Oxyhemoglobin VBG pH ABG Sodium ABG Potassium ABG Glucose Oxyhemoglobin Sodium 146 H Potassium Chloride 107.6 H Carbon Dioxide BUN 61 H Creatinine 1.3 H Glucose 135 H POC Glucose 146 H Lactic Acid Calcium Ferritin AST Alkaline Phosphatase Magnesium Lactate Dehydrogenase Total Creatine Kinase CK-MB (CK-2) C-Reactive Protein Total Protein Albumin Troponin T HDL Cholesterol Arterial Blood Glucose Urine WBC (Auto) Urine Creatinine Urine Total Protein Coronavirus (PCR) Crossmatch 06/14/20 06/14/20 06/14/20 06:11 09:28 11:30 WBC RBC Hgb Hct MCHC RDW Lymph % (Auto) [place] % (Auto) Eos % (Auto) Lymph # [place] # Lymph # (Auto) [place] # (Auto) Seg Neutrophils % Seg Neuts % (Manual) Lymphocytes % (Manual) Seg Neutrophils # Seg Neutrophils # Man Lymphocytes # (Manual) Monocytes % (Manual) Eosinophils % (Manual) Monocytes # (Manual) Eosinophils # (Manual) D-Dimer Heparin Anti-Xa Level 0.90 H ABG pH POC ABG pCO2 POC ABG pO2 ABG pO2 ABG HCO3 ABG O2 Saturation ABG Base Excess ABG Hemoglobin ABG Oxyhemoglobin VBG pH ABG Sodium ABG Potassium ABG Glucose Oxyhemoglobin Sodium Potassium Chloride Carbon Dioxide BUN Creatinine Glucose POC Glucose 141 H 186 H Lactic Acid Calcium Ferritin AST Alkaline Phosphatase Magnesium Lactate Dehydrogenase Total Creatine Kinase CK-MB (CK-2) C-Reactive Protein Total Protein Albumin Troponin T HDL Cholesterol Arterial Blood Glucose Urine WBC (Auto) Urine Creatinine Urine Total Protein Coronavirus (PCR) Crossmatch 06/14/20 06/14/20 06/14/20 16:07 18:16 23:51 WBC RBC Hgb Hct MCHC RDW Lymph % (Auto) [place] % (Auto) Eos % (Auto) Lymph # [place] # Lymph # (Auto) [place] # (Auto) Seg Neutrophils % Seg Neuts % (Manual) Lymphocytes % (Manual) Seg Neutrophils # Seg Neutrophils # Man Lymphocytes # (Manual) Monocytes % (Manual) Eosinophils % (Manual) Monocytes # (Manual) Eosinophils # (Manual) D-Dimer Heparin Anti-Xa Level 0.82 H ABG pH POC ABG pCO2 POC ABG pO2 ABG pO2 ABG HCO3 ABG O2 Saturation ABG Base Excess ABG Hemoglobin ABG Oxyhemoglobin VBG pH ABG Sodium ABG Potassium ABG Glucose Oxyhemoglobin Sodium Potassium Chloride Carbon Dioxide BUN Creatinine Glucose POC Glucose 106 H 154 H Lactic Acid Calcium Ferritin AST Alkaline Phosphatase Magnesium Lactate Dehydrogenase Total Creatine Kinase CK-MB (CK-2) C-Reactive Protein Total Protein Albumin Troponin T HDL Cholesterol Arterial Blood Glucose Urine WBC (Auto) Urine Creatinine Urine Total Protein Coronavirus (PCR) Crossmatch 06/15/20 06/15/20 06/15/20 04:24 04:24 05:59 WBC RBC 2.75 L Hgb 7.9 L Hct 24.0 L MCHC RDW 16.4 H Lymph % (Auto) 12.9 L [place] % (Auto) 8.7 H Eos % (Auto) 4.6 H Lymph # 1.1 L [place] # Lymph # (Auto) [place] # (Auto) Seg Neutrophils % 73.2 H Seg Neuts % (Manual) Lymphocytes % (Manual) Seg Neutrophils # Seg Neutrophils # Man Lymphocytes # (Manual) Monocytes % (Manual) Eosinophils % (Manual) Monocytes # (Manual) Eosinophils # (Manual) D-Dimer Heparin Anti-Xa Level ABG pH POC ABG pCO2 POC ABG pO2 ABG pO2 ABG HCO3 ABG O2 Saturation ABG Base Excess ABG Hemoglobin ABG Oxyhemoglobin VBG pH ABG Sodium ABG Potassium ABG Glucose Oxyhemoglobin Sodium Potassium 3.4 L Chloride Carbon Dioxide BUN 55 H Creatinine 1.3 H Glucose 142 H POC Glucose 131 H Lactic Acid Calcium Ferritin AST Alkaline Phosphatase Magnesium Lactate Dehydrogenase Total Creatine Kinase CK-MB (CK-2) C-Reactive Protein Total Protein Albumin Troponin T HDL Cholesterol Arterial Blood Glucose Urine WBC (Auto) Urine Creatinine Urine Total Protein Coronavirus (PCR) Crossmatch 06/15/20 06/15/20 06/16/20 12:33 17:07 00:22 WBC RBC Hgb Hct MCHC RDW Lymph % (Auto) [place] % (Auto) Eos % (Auto) Lymph # [place] # Lymph # (Auto) [place] # (Auto) Seg Neutrophils % Seg Neuts % (Manual) Lymphocytes % (Manual) Seg Neutrophils # Seg Neutrophils # Man Lymphocytes # (Manual) Monocytes % (Manual) Eosinophils % (Manual) Monocytes # (Manual) Eosinophils # (Manual) D-Dimer Heparin Anti-Xa Level 0.21 L ABG pH POC ABG pCO2 POC ABG pO2 ABG pO2 ABG HCO3 ABG O2 Saturation ABG Base Excess ABG Hemoglobin ABG Oxyhemoglobin VBG pH ABG Sodium ABG Potassium ABG Glucose Oxyhemoglobin Sodium Potassium Chloride Carbon Dioxide BUN Creatinine Glucose POC Glucose 180 H 185 H Lactic Acid Calcium Ferritin AST Alkaline Phosphatase Magnesium Lactate Dehydrogenase Total Creatine Kinase CK-MB (CK-2) C-Reactive Protein Total Protein Albumin Troponin T HDL Cholesterol Arterial Blood Glucose Urine WBC (Auto) Urine Creatinine Urine Total Protein Coronavirus (PCR) Crossmatch 06/16/20 06/16/20 06/16/20 01:45 08:06 09:15 WBC RBC Hgb Hct MCHC RDW Lymph % (Auto) [place] % (Auto) Eos % (Auto) Lymph # [place] # Lymph # (Auto) [place] # (Auto) Seg Neutrophils % Seg Neuts % (Manual) Lymphocytes % (Manual) Seg Neutrophils # Seg Neutrophils # Man Lymphocytes # (Manual) Monocytes % (Manual) Eosinophils % (Manual) Monocytes # (Manual) Eosinophils # (Manual) D-Dimer Heparin Anti-Xa Level ABG pH POC ABG pCO2 POC ABG pO2 ABG pO2 ABG HCO3 ABG O2 Saturation ABG Base Excess ABG Hemoglobin ABG Oxyhemoglobin VBG pH ABG Sodium ABG Potassium ABG Glucose Oxyhemoglobin Sodium Potassium Chloride Carbon Dioxide BUN 49 H Creatinine Glucose 154 H POC Glucose 140 H 171 H Lactic Acid Calcium Ferritin AST Alkaline Phosphatase Magnesium Lactate Dehydrogenase Total Creatine Kinase CK-MB (CK-2) C-Reactive Protein Total Protein Albumin Troponin T HDL Cholesterol Arterial Blood Glucose Urine WBC (Auto) Urine Creatinine Urine Total Protein Coronavirus (PCR) Crossmatch 06/16/20 06/16/20 06/16/20 10:46 12:33 17:54 WBC RBC Hgb Hct MCHC RDW Lymph % (Auto) [place] % (Auto) Eos % (Auto) Lymph # [place] # Lymph # (Auto) [place] # (Auto) Seg Neutrophils % Seg Neuts % (Manual) Lymphocytes % (Manual) Seg Neutrophils # Seg Neutrophils # Man Lymphocytes # (Manual) Monocytes % (Manual) Eosinophils % (Manual) Monocytes # (Manual) Eosinophils # (Manual) D-Dimer Heparin Anti-Xa Level 0.12 L ABG pH POC ABG pCO2 POC ABG pO2 ABG pO2 ABG HCO3 ABG O2 Saturation ABG Base Excess ABG Hemoglobin ABG Oxyhemoglobin VBG pH ABG Sodium ABG Potassium ABG Glucose Oxyhemoglobin Sodium Potassium Chloride Carbon Dioxide BUN Creatinine Glucose POC Glucose 166 H 151 H Lactic Acid Calcium Ferritin AST Alkaline Phosphatase Magnesium Lactate Dehydrogenase Total Creatine Kinase CK-MB (CK-2) C-Reactive Protein Total Protein Albumin Troponin T HDL Cholesterol Arterial Blood Glucose Urine WBC (Auto) Urine Creatinine Urine Total Protein Coronavirus (PCR) Crossmatch 06/16/20 06/17/20 06/17/20 18:47 00:00 02:19 WBC RBC Hgb Hct MCHC RDW Lymph % (Auto) [place] % (Auto) Eos % (Auto) Lymph # [place] # Lymph # (Auto) [place] # (Auto) Seg Neutrophils % Seg Neuts % (Manual) Lymphocytes % (Manual) Seg Neutrophils # Seg Neutrophils # Man Lymphocytes # (Manual) Monocytes % (Manual) Eosinophils % (Manual) Monocytes # (Manual) Eosinophils # (Manual) D-Dimer Heparin Anti-Xa Level 0.73 H 0.77 H ABG pH POC ABG pCO2 POC ABG pO2 ABG pO2 ABG HCO3 ABG O2 Saturation ABG Base Excess ABG Hemoglobin ABG Oxyhemoglobin VBG pH ABG Sodium ABG Potassium ABG Glucose Oxyhemoglobin Sodium Potassium Chloride Carbon Dioxide BUN Creatinine Glucose POC Glucose 139 H Lactic Acid Calcium Ferritin AST Alkaline Phosphatase Magnesium Lactate Dehydrogenase Total Creatine Kinase CK-MB (CK-2) C-Reactive Protein Total Protein Albumin Troponin T HDL Cholesterol Arterial Blood Glucose Urine WBC (Auto) Urine Creatinine Urine Total Protein Coronavirus (PCR) Crossmatch 06/17/20 06/17/20 06/17/20 06:07 11:42 16:43 WBC RBC Hgb Hct MCHC RDW Lymph % (Auto) [place] % (Auto) Eos % (Auto) Lymph # [place] # Lymph # (Auto) [place] # (Auto) Seg Neutrophils % Seg Neuts % (Manual) Lymphocytes % (Manual) Seg Neutrophils # Seg Neutrophils # Man Lymphocytes # (Manual) Monocytes % (Manual) Eosinophils % (Manual) Monocytes # (Manual) Eosinophils # (Manual) D-Dimer Heparin Anti-Xa Level 0.73 H ABG pH POC ABG pCO2 POC ABG pO2 ABG pO2 ABG HCO3 ABG O2 Saturation ABG Base Excess ABG Hemoglobin ABG Oxyhemoglobin VBG pH ABG Sodium ABG Potassium ABG Glucose Oxyhemoglobin Sodium Potassium Chloride Carbon Dioxide BUN Creatinine Glucose POC Glucose 169 H 169 H Lactic Acid Calcium Ferritin AST Alkaline Phosphatase Magnesium Lactate Dehydrogenase Total Creatine Kinase CK-MB (CK-2) C-Reactive Protein Total Protein Albumin Troponin T HDL Cholesterol Arterial Blood Glucose Urine WBC (Auto) Urine Creatinine Urine Total Protein Coronavirus (PCR) Crossmatch 06/17/20 06/17/20 06/17/20 18:18 23:08 23:16 WBC RBC Hgb Hct MCHC RDW Lymph % (Auto) [place] % (Auto) Eos % (Auto) Lymph # [place] # Lymph # (Auto) [place] # (Auto) Seg Neutrophils % Seg Neuts % (Manual) Lymphocytes % (Manual) Seg Neutrophils # Seg Neutrophils # Man Lymphocytes # (Manual) Monocytes % (Manual) Eosinophils % (Manual) Monocytes # (Manual) Eosinophils # (Manual) D-Dimer Heparin Anti-Xa Level 0.71 H ABG pH POC ABG pCO2 POC ABG pO2 ABG pO2 ABG HCO3 ABG O2 Saturation ABG Base Excess ABG Hemoglobin ABG Oxyhemoglobin VBG pH ABG Sodium ABG Potassium ABG Glucose Oxyhemoglobin Sodium Potassium Chloride Carbon Dioxide BUN Creatinine Glucose POC Glucose 159 H 134 H Lactic Acid Calcium Ferritin AST Alkaline Phosphatase Magnesium Lactate Dehydrogenase Total Creatine Kinase CK-MB (CK-2) C-Reactive Protein Total Protein Albumin Troponin T HDL Cholesterol Arterial Blood Glucose Urine WBC (Auto) Urine Creatinine Urine Total Protein Coronavirus (PCR) Crossmatch 06/18/20 06/18/20 06/18/20 04:42 05:52 11:50 WBC RBC Hgb Hct MCHC RDW Lymph % (Auto) [place] % (Auto) Eos % (Auto) Lymph # [place] # Lymph # (Auto) [place] # (Auto) Seg Neutrophils % Seg Neuts % (Manual) Lymphocytes % (Manual) Seg Neutrophils # Seg Neutrophils # Man Lymphocytes # (Manual) Monocytes % (Manual) Eosinophils % (Manual) Monocytes # (Manual) Eosinophils # (Manual) D-Dimer Heparin Anti-Xa Level ABG pH POC ABG pCO2 POC ABG pO2 ABG pO2 ABG HCO3 ABG O2 Saturation ABG Base Excess ABG Hemoglobin ABG Oxyhemoglobin VBG pH ABG Sodium ABG Potassium ABG Glucose Oxyhemoglobin Sodium Potassium Chloride Carbon Dioxide BUN 44 H Creatinine Glucose 115 H POC Glucose 171 H 167 H Lactic Acid Calcium Ferritin AST Alkaline Phosphatase Magnesium Lactate Dehydrogenase Total Creatine Kinase CK-MB (CK-2) C-Reactive Protein Total Protein Albumin Troponin T HDL Cholesterol Arterial Blood Glucose Urine WBC (Auto) Urine Creatinine Urine Total Protein Coronavirus (PCR) Crossmatch 06/18/20 06/19/20 06/19/20 23:46 05:48 07:52 WBC RBC Hgb Hct MCHC RDW Lymph % (Auto) [place] % (Auto) Eos % (Auto) Lymph # [place] # Lymph # (Auto) [place] # (Auto) Seg Neutrophils % Seg Neuts % (Manual) Lymphocytes % (Manual) Seg Neutrophils # Seg Neutrophils # Man Lymphocytes # (Manual) Monocytes % (Manual) Eosinophils % (Manual) Monocytes # (Manual) Eosinophils # (Manual) D-Dimer Heparin Anti-Xa Level ABG pH POC ABG pCO2 POC ABG pO2 ABG pO2 ABG HCO3 ABG O2 Saturation ABG Base Excess ABG Hemoglobin ABG Oxyhemoglobin VBG pH ABG Sodium ABG Potassium ABG Glucose Oxyhemoglobin Sodium Potassium Chloride Carbon Dioxide BUN Creatinine Glucose POC Glucose 130 H 207 H 175 H Lactic Acid Calcium Ferritin AST Alkaline Phosphatase Magnesium Lactate Dehydrogenase Total Creatine Kinase CK-MB (CK-2) C-Reactive Protein Total Protein Albumin Troponin T HDL Cholesterol Arterial Blood Glucose Urine WBC (Auto) Urine Creatinine Urine Total Protein Coronavirus (PCR) Crossmatch 06/19/20 06/19/20 06/20/20 11:42 22:54 05:17 WBC RBC Hgb Hct MCHC RDW Lymph % (Auto) [place] % (Auto) Eos % (Auto) Lymph # [place] # Lymph # (Auto) [place] # (Auto) Seg Neutrophils % Seg Neuts % (Manual) Lymphocytes % (Manual) Seg Neutrophils # Seg Neutrophils # Man Lymphocytes # (Manual) Monocytes % (Manual) Eosinophils % (Manual) Monocytes # (Manual) Eosinophils # (Manual) D-Dimer Heparin Anti-Xa Level ABG pH POC ABG pCO2 POC ABG pO2 ABG pO2 ABG HCO3 ABG O2 Saturation ABG Base Excess ABG Hemoglobin ABG Oxyhemoglobin VBG pH ABG Sodium ABG Potassium ABG Glucose Oxyhemoglobin Sodium Potassium Chloride Carbon Dioxide BUN Creatinine Glucose POC Glucose 166 H 135 H 218 H Lactic Acid Calcium Ferritin AST Alkaline Phosphatase Magnesium Lactate Dehydrogenase Total Creatine Kinase CK-MB (CK-2) C-Reactive Protein Total Protein Albumin Troponin T HDL Cholesterol Arterial Blood Glucose Urine WBC (Auto) Urine Creatinine Urine Total Protein Coronavirus (PCR) Crossmatch 06/20/20 06/20/20 06/20/20 12:04 16:25 16:35 WBC RBC Hgb Hct MCHC RDW Lymph % (Auto) [place] % (Auto) Eos % (Auto) Lymph # [place] # Lymph # (Auto) [place] # (Auto) Seg Neutrophils % Seg Neuts % (Manual) Lymphocytes % (Manual) Seg Neutrophils # Seg Neutrophils # Man Lymphocytes # (Manual) Monocytes % (Manual) Eosinophils % (Manual) Monocytes # (Manual) Eosinophils # (Manual) D-Dimer Heparin Anti-Xa Level ABG pH POC ABG pCO2 POC ABG pO2 ABG pO2 59.6 L ABG HCO3 28.7 H ABG O2 Saturation 93.5 L ABG Base Excess 3.4 H ABG Hemoglobin 7.2 L ABG Oxyhemoglobin VBG pH ABG Sodium ABG Potassium ABG Glucose Oxyhemoglobin 91.3 L Sodium Potassium Chloride Carbon Dioxide BUN Creatinine Glucose POC Glucose 194 H 137 H Lactic Acid Calcium Ferritin AST Alkaline Phosphatase Magnesium Lactate Dehydrogenase Total Creatine Kinase CK-MB (CK-2) C-Reactive Protein Total Protein Albumin Troponin T HDL Cholesterol Arterial Blood Glucose Urine WBC (Auto) Urine Creatinine Urine Total Protein Coronavirus (PCR) Crossmatch 06/20/20 06/21/20 06/21/20 23:59 06:25 12:01 WBC RBC Hgb Hct MCHC RDW Lymph % (Auto) [place] % (Auto) Eos % (Auto) Lymph # [place] # Lymph # (Auto) [place] # (Auto) Seg Neutrophils % Seg Neuts % (Manual) Lymphocytes % (Manual) Seg Neutrophils # Seg Neutrophils # Man Lymphocytes # (Manual) Monocytes % (Manual) Eosinophils % (Manual) Monocytes # (Manual) Eosinophils # (Manual) D-Dimer Heparin Anti-Xa Level ABG pH POC ABG pCO2 POC ABG pO2 ABG pO2 ABG HCO3 ABG O2 Saturation ABG Base Excess ABG Hemoglobin ABG Oxyhemoglobin VBG pH ABG Sodium ABG Potassium ABG Glucose Oxyhemoglobin Sodium Potassium Chloride Carbon Dioxide BUN Creatinine Glucose POC Glucose 156 H 177 H 195 H Lactic Acid Calcium Ferritin AST Alkaline Phosphatase Magnesium Lactate Dehydrogenase Total Creatine Kinase CK-MB (CK-2) C-Reactive Protein Total Protein Albumin Troponin T HDL Cholesterol Arterial Blood Glucose Urine WBC (Auto) Urine Creatinine Urine Total Protein Coronavirus (PCR) Crossmatch 06/21/20 06/21/20 06/22/20 17:04 21:51 05:06 WBC RBC Hgb Hct MCHC RDW Lymph % (Auto) [place] % (Auto) Eos % (Auto) Lymph # [place] # Lymph # (Auto) [place] # (Auto) Seg Neutrophils % Seg Neuts % (Manual) Lymphocytes % (Manual) Seg Neutrophils # Seg Neutrophils # Man Lymphocytes # (Manual) Monocytes % (Manual) Eosinophils % (Manual) Monocytes # (Manual) Eosinophils # (Manual) D-Dimer Heparin Anti-Xa Level ABG pH POC ABG pCO2 POC ABG pO2 ABG pO2 ABG HCO3 ABG O2 Saturation ABG Base Excess ABG Hemoglobin ABG Oxyhemoglobin VBG pH ABG Sodium ABG Potassium ABG Glucose Oxyhemoglobin Sodium Potassium Chloride Carbon Dioxide BUN Creatinine Glucose POC Glucose 156 H 154 H 167 H Lactic Acid Calcium Ferritin AST Alkaline Phosphatase Magnesium Lactate Dehydrogenase Total Creatine Kinase CK-MB (CK-2) C-Reactive Protein Total Protein Albumin Troponin T HDL Cholesterol Arterial Blood Glucose Urine WBC (Auto) Urine Creatinine Urine Total Protein Coronavirus (PCR) Crossmatch 06/22/20 06/22/20 06/22/20 11:20 15:27 16:58 WBC RBC Hgb Hct MCHC RDW Lymph % (Auto) [place] % (Auto) Eos % (Auto) Lymph # [place] # Lymph # (Auto) [place] # (Auto) Seg Neutrophils % Seg Neuts % (Manual) Lymphocytes % (Manual) Seg Neutrophils # Seg Neutrophils # Man Lymphocytes # (Manual) Monocytes % (Manual) Eosinophils % (Manual) Monocytes # (Manual) Eosinophils # (Manual) D-Dimer Heparin Anti-Xa Level ABG pH 7.206 L POC ABG pCO2 79.9 H POC ABG pO2 ABG pO2 ABG HCO3 ABG O2 Saturation ABG Base Excess ABG Hemoglobin 8.3 L ABG Oxyhemoglobin VBG pH ABG Sodium ABG Potassium ABG Glucose Oxyhemoglobin Sodium Potassium Chloride Carbon Dioxide BUN Creatinine Glucose POC Glucose 181 H 230 H Lactic Acid Calcium Ferritin AST Alkaline Phosphatase Magnesium Lactate Dehydrogenase Total Creatine Kinase CK-MB (CK-2) C-Reactive Protein Total Protein Albumin Troponin T HDL Cholesterol Arterial Blood Glucose Urine WBC (Auto) Urine Creatinine Urine Total Protein Coronavirus (PCR) Crossmatch 06/22/20 06/23/20 06/23/20 22:26 05:49 05:49 WBC RBC 2.58 L Hgb 7.4 L Hct 23.2 L MCHC RDW 17.0 H Lymph % (Auto) [place] % (Auto) 11.2 H Eos % (Auto) Lymph # 1.0 L [place] # Lymph # (Auto) [place] # (Auto) Seg Neutrophils % Seg Neuts % (Manual) Lymphocytes % (Manual) Seg Neutrophils # Seg Neutrophils # Man Lymphocytes # (Manual) Monocytes % (Manual) Eosinophils % (Manual) Monocytes # (Manual) Eosinophils # (Manual) D-Dimer Heparin Anti-Xa Level ABG pH POC ABG pCO2 POC ABG pO2 ABG pO2 ABG HCO3 ABG O2 Saturation ABG Base Excess ABG Hemoglobin ABG Oxyhemoglobin VBG pH ABG Sodium ABG Potassium ABG Glucose Oxyhemoglobin Sodium Potassium Chloride Carbon Dioxide BUN 68 H Creatinine 2.4 H Glucose 198 H POC Glucose 195 H Lactic Acid Calcium Ferritin AST Alkaline Phosphatase Magnesium Lactate Dehydrogenase Total Creatine Kinase CK-MB (CK-2) C-Reactive Protein Total Protein Albumin Troponin T HDL Cholesterol Arterial Blood Glucose Urine WBC (Auto) Urine Creatinine Urine Total Protein Coronavirus (PCR) Crossmatch 06/23/20 06/23/20 06/23/20 05:50 12:29 12:34 WBC RBC Hgb Hct MCHC RDW Lymph % (Auto) [place] % (Auto) Eos % (Auto) Lymph # [place] # Lymph # (Auto) [place] # (Auto) Seg Neutrophils % Seg Neuts % (Manual) Lymphocytes % (Manual) Seg Neutrophils # Seg Neutrophils # Man Lymphocytes # (Manual) Monocytes % (Manual) Eosinophils % (Manual) Monocytes # (Manual) Eosinophils # (Manual) D-Dimer Heparin Anti-Xa Level ABG pH POC ABG pCO2 54.7 H POC ABG pO2 68.8 L ABG pO2 ABG HCO3 ABG O2 Saturation ABG Base Excess ABG Hemoglobin 9.8 L ABG Oxyhemoglobin 92.6 L VBG pH ABG Sodium ABG Potassium ABG Glucose Oxyhemoglobin Sodium Potassium Chloride Carbon Dioxide BUN Creatinine Glucose POC Glucose 202 H 218 H Lactic Acid Calcium Ferritin AST Alkaline Phosphatase Magnesium Lactate Dehydrogenase Total Creatine Kinase CK-MB (CK-2) C-Reactive Protein Total Protein Albumin Troponin T HDL Cholesterol Arterial Blood Glucose Urine WBC (Auto) Urine Creatinine Urine Total Protein Coronavirus (PCR) Crossmatch 06/23/20 06/23/20 06/24/20 16:02 22:22 01:06 WBC RBC Hgb Hct MCHC RDW Lymph % (Auto) [place] % (Auto) Eos % (Auto) Lymph # [place] # Lymph # (Auto) [place] # (Auto) Seg Neutrophils % Seg Neuts % (Manual) Lymphocytes % (Manual) Seg Neutrophils # Seg Neutrophils # Man Lymphocytes # (Manual) Monocytes % (Manual) Eosinophils % (Manual) Monocytes # (Manual) Eosinophils # (Manual) D-Dimer Heparin Anti-Xa Level ABG pH POC ABG pCO2 POC ABG pO2 ABG pO2 ABG HCO3 ABG O2 Saturation ABG Base Excess ABG Hemoglobin ABG Oxyhemoglobin VBG pH ABG Sodium ABG Potassium ABG Glucose Oxyhemoglobin Sodium Potassium Chloride Carbon Dioxide BUN Creatinine Glucose POC Glucose 190 H 166 H 171 H Lactic Acid Calcium Ferritin AST Alkaline Phosphatase Magnesium Lactate Dehydrogenase Total Creatine Kinase CK-MB (CK-2) C-Reactive Protein Total Protein Albumin Troponin T HDL Cholesterol Arterial Blood Glucose Urine WBC (Auto) Urine Creatinine Urine Total Protein Coronavirus (PCR) Crossmatch 06/24/20 06/24/20 06/24/20 04:48 05:35 11:48 WBC RBC Hgb Hct MCHC RDW Lymph % (Auto) [place] % (Auto) Eos % (Auto) Lymph # [place] # Lymph # (Auto) [place] # (Auto) Seg Neutrophils % Seg Neuts % (Manual) Lymphocytes % (Manual) Seg Neutrophils # Seg Neutrophils # Man Lymphocytes # (Manual) Monocytes % (Manual) Eosinophils % (Manual) Monocytes # (Manual) Eosinophils # (Manual) D-Dimer Heparin Anti-Xa Level ABG pH POC ABG pCO2 POC ABG pO2 ABG pO2 ABG HCO3 ABG O2 Saturation ABG Base Excess ABG Hemoglobin ABG Oxyhemoglobin VBG pH ABG Sodium ABG Potassium ABG Glucose Oxyhemoglobin Sodium Potassium Chloride Carbon Dioxide BUN 75 H Creatinine 2.6 H Glucose 179 H POC Glucose 172 H 153 H Lactic Acid Calcium Ferritin AST Alkaline Phosphatase Magnesium Lactate Dehydrogenase Total Creatine Kinase CK-MB (CK-2) C-Reactive Protein Total Protein Albumin Troponin T HDL Cholesterol Arterial Blood Glucose Urine WBC (Auto) Urine Creatinine Urine Total Protein Coronavirus (PCR) Crossmatch 06/24/20 06/24/20 06/25/20 16:38 21:52 12:00 WBC RBC Hgb Hct MCHC RDW Lymph % (Auto) [place] % (Auto) Eos % (Auto) Lymph # [place] # Lymph # (Auto) [place] # (Auto) Seg Neutrophils % Seg Neuts % (Manual) Lymphocytes % (Manual) Seg Neutrophils # Seg Neutrophils # Man Lymphocytes # (Manual) Monocytes % (Manual) Eosinophils % (Manual) Monocytes # (Manual) Eosinophils # (Manual) D-Dimer Heparin Anti-Xa Level ABG pH POC ABG pCO2 POC ABG pO2 ABG pO2 ABG HCO3 ABG O2 Saturation ABG Base Excess ABG Hemoglobin ABG Oxyhemoglobin VBG pH ABG Sodium ABG Potassium ABG Glucose Oxyhemoglobin Sodium Potassium Chloride Carbon Dioxide BUN Creatinine Glucose POC Glucose 123 H 115 H 203 H Lactic Acid Calcium Ferritin AST Alkaline Phosphatase Magnesium Lactate Dehydrogenase Total Creatine Kinase CK-MB (CK-2) C-Reactive Protein Total Protein Albumin Troponin T HDL Cholesterol Arterial Blood Glucose Urine WBC (Auto) Urine Creatinine Urine Total Protein Coronavirus (PCR) Crossmatch 06/25/20 06/25/20 06/25/20 15:43 16:37 23:02 WBC RBC Hgb Hct MCHC RDW Lymph % (Auto) [place] % (Auto) Eos % (Auto) Lymph # Rush # Lymph # (Auto) [place] # (Auto) Seg Neutrophils % Seg Neuts % (Manual) Lymphocytes % (Manual) Seg Neutrophils # Seg Neutrophils # Man Lymphocytes # (Manual) Monocytes % (Manual) Eosinophils % (Manual) Monocytes # (Manual) Eosinophils # (Manual) D-Dimer Heparin Anti-Xa Level ABG pH POC ABG pCO2 POC ABG pO2 ABG pO2 ABG HCO3 ABG O2 Saturation ABG Base Excess ABG Hemoglobin ABG Oxyhemoglobin VBG pH ABG Sodium ABG Potassium ABG Glucose Oxyhemoglobin Sodium Potassium Chloride Carbon Dioxide BUN 71 H Creatinine 1.8 H Glucose 170 H POC Glucose 191 H 126 H Lactic Acid Calcium 8.2 L Ferritin AST Alkaline Phosphatase Magnesium Lactate Dehydrogenase Total Creatine Kinase CK-MB (CK-2) C-Reactive Protein Total Protein Albumin Troponin T HDL Cholesterol Arterial Blood Glucose Urine WBC (Auto) Urine Creatinine Urine Total Protein Coronavirus (PCR) Crossmatch 09/18/20 09/18/20 09/18/20 06:34 06:34 09:27 WBC RBC 2.41 L Hgb 6.9 L Hct 21.5 L MCHC RDW 16.7 H Lymph % (Auto) 10.9 L [place] % (Auto) 9.6 H Eos % (Auto) Lymph # 0.7 L [place] # Lymph # (Auto) [place] # (Auto) Seg Neutrophils % 75.4 H Seg Neuts % (Manual) Lymphocytes % (Manual) Seg Neutrophils # Seg Neutrophils # Man Lymphocytes # (Manual) Monocytes % (Manual) Eosinophils % (Manual) Monocytes # (Manual) Eosinophils # (Manual) D-Dimer Heparin Anti-Xa Level ABG pH POC ABG pCO2 POC ABG pO2 ABG pO2 ABG HCO3 ABG O2 Saturation ABG Base Excess ABG Hemoglobin ABG Oxyhemoglobin VBG pH ABG Sodium ABG Potassium ABG Glucose Oxyhemoglobin Sodium Potassium Chloride Carbon Dioxide BUN 77 H Creatinine 1.9 H Glucose 190 H POC Glucose Lactic Acid Calcium Ferritin AST Alkaline Phosphatase Magnesium Lactate Dehydrogenase Total Creatine Kinase CK-MB (CK-2) C-Reactive Protein Total Protein Albumin Troponin T HDL Cholesterol Arterial Blood Glucose Urine WBC (Auto) Urine Creatinine Urine Total Protein Coronavirus (PCR) Crossmatch See Detail 06/26/20 06/26/20 06/26/20 12:15 16:28 17:28 WBC RBC Hgb Hct MCHC RDW Lymph % (Auto) [place] % (Auto) Eos % (Auto) Lymph # [place] # Lymph # (Auto) [place] # (Auto) Seg Neutrophils % Seg Neuts % (Manual) Lymphocytes % (Manual) Seg Neutrophils # Seg Neutrophils # Man Lymphocytes # (Manual) Monocytes % (Manual) Eosinophils % (Manual) Monocytes # (Manual) Eosinophils # (Manual) D-Dimer Heparin Anti-Xa Level ABG pH POC ABG pCO2 POC ABG pO2 ABG pO2 ABG HCO3 ABG O2 Saturation ABG Base Excess ABG Hemoglobin ABG Oxyhemoglobin VBG pH ABG Sodium ABG Potassium ABG Glucose Oxyhemoglobin Sodium Potassium Chloride Carbon Dioxide BUN Creatinine Glucose POC Glucose 187 H 149 H 189 H Lactic Acid Calcium Ferritin AST Alkaline Phosphatase Magnesium Lactate Dehydrogenase Total Creatine Kinase CK-MB (CK-2) C-Reactive Protein Total Protein Albumin Troponin T HDL Cholesterol Arterial Blood Glucose Urine WBC (Auto) Urine Creatinine Urine Total Protein Coronavirus (PCR) Crossmatch 06/26/20 06/26/20 06/26/20 18:30 18:30 18:30 WBC RBC 2.87 L Hgb 8.2 L Hct 25.9 L MCHC RDW 17.8 H Lymph % (Auto) [place] % (Auto) Eos % (Auto) Lymph # [place] # Lymph # (Auto) [place] # (Auto) Seg Neutrophils % Seg Neuts % (Manual) 83.0 H Lymphocytes % (Manual) 8.0 L Seg Neutrophils # Seg Neutrophils # Man Lymphocytes # (Manual) 0.6 L Monocytes % (Manual) Eosinophils % (Manual) Monocytes # (Manual) Eosinophils # (Manual) D-Dimer Heparin Anti-Xa Level ABG pH POC ABG pCO2 POC ABG pO2 ABG pO2 ABG HCO3 ABG O2 Saturation ABG Base Excess ABG Hemoglobin ABG Oxyhemoglobin VBG pH ABG Sodium ABG Potassium ABG Glucose Oxyhemoglobin Sodium Potassium Chloride Carbon Dioxide BUN 80 H Creatinine 2.1 H Glucose 260 H POC Glucose Lactic Acid 4.30 H* Calcium 8.3 L Ferritin AST Alkaline Phosphatase Magnesium Lactate Dehydrogenase Total Creatine Kinase CK-MB (CK-2) C-Reactive Protein Total Protein Albumin Troponin T HDL Cholesterol Arterial Blood Glucose Urine WBC (Auto) Urine Creatinine Urine Total Protein Coronavirus (PCR) Crossmatch 06/26/20 06/27/20 06/27/20 18:50 01:00 04:29 WBC RBC Hgb Hct MCHC RDW Lymph % (Auto) [place] % (Auto) Eos % (Auto) Lymph # [place] # Lymph # (Auto) [place] # (Auto) Seg Neutrophils % Seg Neuts % (Manual) Lymphocytes % (Manual) Seg Neutrophils # Seg Neutrophils # Man Lymphocytes # (Manual) Monocytes % (Manual) Eosinophils % (Manual) Monocytes # (Manual) Eosinophils # (Manual) D-Dimer Heparin Anti-Xa Level ABG pH 7.296 L POC ABG pCO2 POC ABG pO2 ABG pO2 116.5 H 200.5 H ABG HCO3 28.4 H ABG O2 Saturation 99.3 H ABG Base Excess 3.7 H ABG Hemoglobin 5.6 L ABG Oxyhemoglobin VBG pH ABG Sodium ABG Potassium ABG Glucose Oxyhemoglobin Sodium Potassium Chloride Carbon Dioxide BUN Creatinine Glucose POC Glucose 123 H Lactic Acid Calcium Ferritin AST Alkaline Phosphatase Magnesium Lactate Dehydrogenase Total Creatine Kinase CK-MB (CK-2) C-Reactive Protein Total Protein Albumin Troponin T HDL Cholesterol Arterial Blood Glucose Urine WBC (Auto) Urine Creatinine Urine Total Protein Coronavirus (PCR) Crossmatch 06/27/20 06/27/20 06/27/20 05:00 05:00 05:00 WBC RBC 2.75 L Hgb 7.9 L Hct 24.3 L MCHC RDW 17.1 H Lymph % (Auto) 8.5 L [place] % (Auto) 12.6 H Eos % (Auto) Lymph # 0.7 L [place] # 1.0 H Lymph # (Auto) [place] # (Auto) Seg Neutrophils % 77.5 H Seg Neuts % (Manual) Lymphocytes % (Manual) Seg Neutrophils # Seg Neutrophils # Man Lymphocytes # (Manual) Monocytes % (Manual) Eosinophils % (Manual) Monocytes # (Manual) Eosinophils # (Manual) D-Dimer Heparin Anti-Xa Level ABG pH POC ABG pCO2 POC ABG pO2 ABG pO2 ABG HCO3 ABG O2 Saturation ABG Base Excess ABG Hemoglobin ABG Oxyhemoglobin VBG pH ABG Sodium ABG Potassium ABG Glucose Oxyhemoglobin Sodium Potassium Chloride Carbon Dioxide BUN 80 H Creatinine 2.0 H Glucose 129 H POC Glucose Lactic Acid 0.60 L Calcium 7.9 L Ferritin AST Alkaline Phosphatase Magnesium Lactate Dehydrogenase Total Creatine Kinase CK-MB (CK-2) C-Reactive Protein Total Protein Albumin Troponin T HDL Cholesterol Arterial Blood Glucose Urine WBC (Auto) Urine Creatinine Urine Total Protein Coronavirus (PCR) Crossmatch 06/27/20 06/27/20 06/27/20 05:23 13:46 17:25 WBC RBC Hgb Hct MCHC RDW Lymph % (Auto) [place] % (Auto) Eos % (Auto) Lymph # [place] # Lymph # (Auto) [place] # (Auto) Seg Neutrophils % Seg Neuts % (Manual) Lymphocytes % (Manual) Seg Neutrophils # Seg Neutrophils # Man Lymphocytes # (Manual) Monocytes % (Manual) Eosinophils % (Manual) Monocytes # (Manual) Eosinophils # (Manual) D-Dimer Heparin Anti-Xa Level ABG pH POC ABG pCO2 POC ABG pO2 ABG pO2 ABG HCO3 ABG O2 Saturation ABG Base Excess ABG Hemoglobin ABG Oxyhemoglobin VBG pH ABG Sodium ABG Potassium ABG Glucose Oxyhemoglobin Sodium Potassium Chloride Carbon Dioxide BUN Creatinine Glucose POC Glucose 109 H 158 H 162 H Lactic Acid Calcium Ferritin AST Alkaline Phosphatase Magnesium Lactate Dehydrogenase Total Creatine Kinase CK-MB (CK-2) C-Reactive Protein Total Protein Albumin Troponin T HDL Cholesterol Arterial Blood Glucose Urine WBC (Auto) Urine Creatinine Urine Total Protein Coronavirus (PCR) Crossmatch 06/27/20 06/27/20 06/28/20 18:43 23:46 04:05 WBC RBC Hgb 7.7 L Hct 22.1 L MCHC RDW Lymph % (Auto) [place] % (Auto) Eos % (Auto) Lymph # [place] # Lymph # (Auto) [place] # (Auto) Seg Neutrophils % Seg Neuts % (Manual) Lymphocytes % (Manual) Seg Neutrophils # Seg Neutrophils # Man Lymphocytes # (Manual) Monocytes % (Manual) Eosinophils % (Manual) Monocytes # (Manual) Eosinophils # (Manual) D-Dimer Heparin Anti-Xa Level ABG pH POC ABG pCO2 POC ABG pO2 ABG pO2 102.7 H ABG HCO3 28.7 H ABG O2 Saturation ABG Base Excess 3.7 H ABG Hemoglobin ABG Oxyhemoglobin VBG pH ABG Sodium ABG Potassium ABG Glucose Oxyhemoglobin Sodium Potassium Chloride Carbon Dioxide BUN Creatinine Glucose POC Glucose 142 H Lactic Acid Calcium Ferritin AST Alkaline Phosphatase Magnesium Lactate Dehydrogenase Total Creatine Kinase CK-MB (CK-2) C-Reactive Protein Total Protein Albumin Troponin T HDL Cholesterol Arterial Blood Glucose Urine WBC (Auto) Urine Creatinine Urine Total Protein Coronavirus (PCR) Crossmatch 06/28/20 06/28/20 06/28/20 09:47 09:47 12:02 WBC RBC 2.53 L Hgb 7.4 L Hct 22.2 L MCHC RDW 16.8 H Lymph % (Auto) [place] % (Auto) 13.5 H Eos % (Auto) Lymph # 1.1 L [place] # 1.0 H Lymph # (Auto) [place] # (Auto) Seg Neutrophils % Seg Neuts % (Manual) Lymphocytes % (Manual) Seg Neutrophils # Seg Neutrophils # Man Lymphocytes # (Manual) Monocytes % (Manual) Eosinophils % (Manual) Monocytes # (Manual) Eosinophils # (Manual) D-Dimer Heparin Anti-Xa Level ABG pH POC ABG pCO2 POC ABG pO2 ABG pO2 ABG HCO3 ABG O2 Saturation ABG Base Excess ABG Hemoglobin ABG Oxyhemoglobin VBG pH ABG Sodium ABG Potassium ABG Glucose Oxyhemoglobin Sodium Potassium Chloride Carbon Dioxide BUN 80 H Creatinine 1.5 H Glucose 139 H POC Glucose 169 H Lactic Acid Calcium 7.9 L Ferritin AST Alkaline Phosphatase Magnesium Lactate Dehydrogenase Total Creatine Kinase CK-MB (CK-2) C-Reactive Protein Total Protein 5.0 L Albumin 2.1 L Troponin T HDL Cholesterol Arterial Blood Glucose Urine WBC (Auto) Urine Creatinine Urine Total Protein Coronavirus (PCR) Crossmatch 06/28/20 06/28/20 06/28/20 12:30 12:30 17:24 WBC RBC 2.38 L Hgb 7.3 L Hct 20.9 L MCHC 35 H RDW 16.7 H Lymph % (Auto) [place] % (Auto) Eos % (Auto) Lymph # [place] # Lymph # (Auto) [place] # (Auto) Seg Neutrophils % Seg Neuts % (Manual) Lymphocytes % (Manual) Seg Neutrophils # Seg Neutrophils # Man Lymphocytes # (Manual) Monocytes % (Manual) Eosinophils % (Manual) Monocytes # (Manual) Eosinophils # (Manual) D-Dimer Heparin Anti-Xa Level ABG pH POC ABG pCO2 POC ABG pO2 ABG pO2 ABG HCO3 ABG O2 Saturation ABG Base Excess ABG Hemoglobin ABG Oxyhemoglobin VBG pH ABG Sodium ABG Potassium ABG Glucose Oxyhemoglobin Sodium Potassium Chloride Carbon Dioxide BUN 74 H Creatinine 1.5 H Glucose 143 H POC Glucose 173 H Lactic Acid Calcium 7.5 L Ferritin AST Alkaline Phosphatase Magnesium Lactate Dehydrogenase Total Creatine Kinase CK-MB (CK-2) C-Reactive Protein Total Protein Albumin Troponin T HDL Cholesterol Arterial Blood Glucose Urine WBC (Auto) Urine Creatinine Urine Total Protein Coronavirus (PCR) Crossmatch 06/29/20 06/29/20 06/29/20 00:02 03:54 04:38 WBC RBC 2.55 L Hgb 7.3 L Hct 22.4 L MCHC RDW 16.4 H Lymph % (Auto) 13.3 L [place] % (Auto) 12.5 H Eos % (Auto) Lymph # 1.1 L [place] # 1.0 H Lymph # (Auto) [place] # (Auto) Seg Neutrophils % Seg Neuts % (Manual) Lymphocytes % (Manual) Seg Neutrophils # Seg Neutrophils # Man Lymphocytes # (Manual) Monocytes % (Manual) Eosinophils % (Manual) Monocytes # (Manual) Eosinophils # (Manual) D-Dimer Heparin Anti-Xa Level ABG pH POC ABG pCO2 POC ABG pO2 ABG pO2 ABG HCO3 26.9 H ABG O2 Saturation ABG Base Excess ABG Hemoglobin 6.9 L ABG Oxyhemoglobin VBG pH ABG Sodium ABG Potassium ABG Glucose Oxyhemoglobin Sodium Potassium Chloride Carbon Dioxide BUN Creatinine Glucose POC Glucose 142 H Lactic Acid Calcium Ferritin AST Alkaline Phosphatase Magnesium Lactate Dehydrogenase Total Creatine Kinase CK-MB (CK-2) C-Reactive Protein Total Protein Albumin Troponin T HDL Cholesterol Arterial Blood Glucose Urine WBC (Auto) Urine Creatinine Urine Total Protein Coronavirus (PCR) Crossmatch 06/29/20 06/29/20 06/29/20 04:38 05:38 12:25 WBC RBC Hgb Hct MCHC RDW Lymph % (Auto) [place] % (Auto) Eos % (Auto) Lymph # [place] # Lymph # (Auto) [place] # (Auto) Seg Neutrophils % Seg Neuts % (Manual) Lymphocytes % (Manual) Seg Neutrophils # Seg Neutrophils # Man Lymphocytes # (Manual) Monocytes % (Manual) Eosinophils % (Manual) Monocytes # (Manual) Eosinophils # (Manual) D-Dimer Heparin Anti-Xa Level ABG pH POC ABG pCO2 POC ABG pO2 ABG pO2 ABG HCO3 ABG O2 Saturation ABG Base Excess ABG Hemoglobin ABG Oxyhemoglobin VBG pH ABG Sodium ABG Potassium ABG Glucose Oxyhemoglobin Sodium Potassium Chloride 107.8 H Carbon Dioxide BUN 72 H Creatinine 1.4 H Glucose 127 H POC Glucose 122 H 138 H Lactic Acid Calcium 7.4 L Ferritin AST Alkaline Phosphatase Magnesium Lactate Dehydrogenase Total Creatine Kinase CK-MB (CK-2) C-Reactive Protein Total Protein Albumin Troponin T HDL Cholesterol Arterial Blood Glucose Urine WBC (Auto) Urine Creatinine Urine Total Protein Coronavirus (PCR) Crossmatch 06/29/20 06/29/20 06/29/20 14:45 14:45 14:45 WBC RBC Hgb Hct MCHC RDW Lymph % (Auto) [place] % (Auto) Eos % (Auto) Lymph # [place] # Lymph # (Auto) [place] # (Auto) Seg Neutrophils % Seg Neuts % (Manual) Lymphocytes % (Manual) Seg Neutrophils # Seg Neutrophils # Man Lymphocytes # (Manual) Monocytes % (Manual) Eosinophils % (Manual) Monocytes # (Manual) Eosinophils # (Manual) D-Dimer 2310.15 H Heparin Anti-Xa Level ABG pH POC ABG pCO2 POC ABG pO2 ABG pO2 ABG HCO3 ABG O2 Saturation ABG Base Excess ABG Hemoglobin ABG Oxyhemoglobin VBG pH ABG Sodium ABG Potassium ABG Glucose Oxyhemoglobin Sodium Potassium Chloride Carbon Dioxide BUN Creatinine Glucose POC Glucose Lactic Acid Calcium Ferritin 223.6 H AST Alkaline Phosphatase Magnesium Lactate Dehydrogenase 367 H Total Creatine Kinase CK-MB (CK-2) C-Reactive Protein 3.60 H Total Protein Albumin Troponin T HDL Cholesterol Arterial Blood Glucose Urine WBC (Auto) Urine Creatinine Urine Total Protein Coronavirus (PCR) Crossmatch 06/29/20 06/29/20 06/29/20 18:27 23:35 Unknown WBC RBC Hgb Hct MCHC RDW Lymph % (Auto) [place] % (Auto) Eos % (Auto) Lymph # [place] # Lymph # (Auto) [place] # (Auto) Seg Neutrophils % Seg Neuts % (Manual) Lymphocytes % (Manual) Seg Neutrophils # Seg Neutrophils # Man Lymphocytes # (Manual) Monocytes % (Manual) Eosinophils % (Manual) Monocytes # (Manual) Eosinophils # (Manual) D-Dimer Heparin Anti-Xa Level ABG pH POC ABG pCO2 POC ABG pO2 ABG pO2 ABG HCO3 ABG O2 Saturation ABG Base Excess ABG Hemoglobin ABG Oxyhemoglobin VBG pH ABG Sodium ABG Potassium ABG Glucose Oxyhemoglobin Sodium Potassium Chloride Carbon Dioxide BUN Creatinine Glucose POC Glucose 112 H 140 H Lactic Acid Calcium Ferritin AST Alkaline Phosphatase Magnesium Lactate Dehydrogenase Total Creatine Kinase CK-MB (CK-2) C-Reactive Protein Total Protein Albumin Troponin T HDL Cholesterol Arterial Blood Glucose Urine WBC (Auto) Urine Creatinine Urine Total Protein Coronavirus (PCR) Positive A Crossmatch 06/30/20 06/30/20 06/30/20 04:10 04:10 06:09 WBC RBC 2.44 L Hgb 7.1 L Hct 21.5 L MCHC RDW 16.6 H Lymph % (Auto) 11.0 L [place] % (Auto) 10.8 H Eos % (Auto) Lymph # 0.9 L [place] # 0.9 H Lymph # (Auto) [place] # (Auto) Seg Neutrophils % 73.7 H Seg Neuts % (Manual) Lymphocytes % (Manual) Seg Neutrophils # Seg Neutrophils # Man Lymphocytes # (Manual) Monocytes % (Manual) Eosinophils % (Manual) Monocytes # (Manual) Eosinophils # (Manual) D-Dimer Heparin Anti-Xa Level ABG pH POC ABG pCO2 POC ABG pO2 ABG pO2 ABG HCO3 ABG O2 Saturation ABG Base Excess ABG Hemoglobin ABG Oxyhemoglobin VBG pH ABG Sodium ABG Potassium ABG Glucose Oxyhemoglobin Sodium Potassium Chloride 109.1 H Carbon Dioxide BUN 74 H Creatinine 1.3 H Glucose 191 H POC Glucose 187 H Lactic Acid Calcium 7.8 L Ferritin AST Alkaline Phosphatase Magnesium Lactate Dehydrogenase Total Creatine Kinase CK-MB (CK-2) C-Reactive Protein Total Protein Albumin Troponin T HDL Cholesterol Arterial Blood Glucose Urine WBC (Auto) Urine Creatinine Urine Total Protein Coronavirus (PCR) Crossmatch 06/30/20 06/30/20 06/30/20 12:04 17:43 23:41 WBC RBC Hgb Hct MCHC RDW Lymph % (Auto) [place] % (Auto) Eos % (Auto) Lymph # [place] # Lymph # (Auto) [place] # (Auto) Seg Neutrophils % Seg Neuts % (Manual) Lymphocytes % (Manual) Seg Neutrophils # Seg Neutrophils # Man Lymphocytes # (Manual) Monocytes % (Manual) Eosinophils % (Manual) Monocytes # (Manual) Eosinophils # (Manual) D-Dimer Heparin Anti-Xa Level ABG pH POC ABG pCO2 POC ABG pO2 ABG pO2 ABG HCO3 ABG O2 Saturation ABG Base Excess ABG Hemoglobin ABG Oxyhemoglobin VBG pH ABG Sodium ABG Potassium ABG Glucose Oxyhemoglobin Sodium Potassium Chloride Carbon Dioxide BUN Creatinine Glucose POC Glucose 112 H 177 H 143 H Lactic Acid Calcium Ferritin AST Alkaline Phosphatase Magnesium Lactate Dehydrogenase Total Creatine Kinase CK-MB (CK-2) C-Reactive Protein Total Protein Albumin Troponin T HDL Cholesterol Arterial Blood Glucose Urine WBC (Auto) Urine Creatinine Urine Total Protein Coronavirus (PCR) Crossmatch 07/01/20 07/01/20 07/01/20 05:02 05:52 06:01 WBC 12.6 H RBC 2.95 L Hgb 8.2 L Hct 26.0 L MCHC RDW 16.9 H Lymph % (Auto) [place] % (Auto) Eos % (Auto) Lymph # [place] # Lymph # (Auto) [place] # (Auto) Seg Neutrophils % Seg Neuts % (Manual) Lymphocytes % (Manual) Seg Neutrophils # Seg Neutrophils # Man 8.6 H Lymphocytes # (Manual) Monocytes % (Manual) Eosinophils % (Manual) 5.0 H Monocytes # (Manual) Eosinophils # (Manual) 0.6 H D-Dimer Heparin Anti-Xa Level ABG pH POC ABG pCO2 POC ABG pO2 ABG pO2 ABG HCO3 ABG O2 Saturation ABG Base Excess ABG Hemoglobin 8.2 L ABG Oxyhemoglobin VBG pH ABG Sodium ABG Potassium ABG Glucose Oxyhemoglobin Sodium Potassium Chloride Carbon Dioxide BUN Creatinine Glucose POC Glucose 129 H Lactic Acid Calcium Ferritin AST Alkaline Phosphatase Magnesium Lactate Dehydrogenase Total Creatine Kinase CK-MB (CK-2) C-Reactive Protein Total Protein Albumin Troponin T HDL Cholesterol Arterial Blood Glucose Urine WBC (Auto) Urine Creatinine Urine Total Protein Coronavirus (PCR) Crossmatch 07/01/20 07/01/20 07/01/20 06:01 06:01 06:08 WBC RBC Hgb Hct MCHC RDW Lymph % (Auto) [place] % (Auto) Eos % (Auto) Lymph # [place] # Lymph # (Auto) [place] # (Auto) Seg Neutrophils % Seg Neuts % (Manual) Lymphocytes % (Manual) Seg Neutrophils # Seg Neutrophils # Man Lymphocytes # (Manual) Monocytes % (Manual) Eosinophils % (Manual) Monocytes # (Manual) Eosinophils # (Manual) D-Dimer Heparin Anti-Xa Level ABG pH POC ABG pCO2 POC ABG pO2 ABG pO2 ABG HCO3 ABG O2 Saturation ABG Base Excess ABG Hemoglobin ABG Oxyhemoglobin VBG pH ABG Sodium ABG Potassium ABG Glucose Oxyhemoglobin Sodium 147 H Potassium Chloride 108.0 H Carbon Dioxide BUN 71 H Creatinine 1.3 H Glucose 193 H POC Glucose 192 H Lactic Acid Calcium 8.1 L Ferritin AST Alkaline Phosphatase Magnesium Lactate Dehydrogenase Total Creatine Kinase 300 H CK-MB (CK-2) C-Reactive Protein Total Protein Albumin Troponin T 0.067 H HDL Cholesterol 61 H Arterial Blood Glucose Urine WBC (Auto) Urine Creatinine Urine Total Protein Coronavirus (PCR) Crossmatch 07/01/20 07/01/20 07/02/20 12:23 17:40 00:18 WBC RBC Hgb Hct MCHC RDW Lymph % (Auto) [place] % (Auto) Eos % (Auto) Lymph # [place] # Lymph # (Auto) [place] # (Auto) Seg Neutrophils % Seg Neuts % (Manual) Lymphocytes % (Manual) Seg Neutrophils # Seg Neutrophils # Man Lymphocytes # (Manual) Monocytes % (Manual) Eosinophils % (Manual) Monocytes # (Manual) Eosinophils # (Manual) D-Dimer Heparin Anti-Xa Level ABG pH POC ABG pCO2 POC ABG pO2 ABG pO2 ABG HCO3 ABG O2 Saturation ABG Base Excess ABG Hemoglobin ABG Oxyhemoglobin VBG pH ABG Sodium ABG Potassium ABG Glucose Oxyhemoglobin Sodium Potassium Chloride Carbon Dioxide BUN Creatinine Glucose POC Glucose 111 H 135 H 145 H Lactic Acid Calcium Ferritin AST Alkaline Phosphatase Magnesium Lactate Dehydrogenase Total Creatine Kinase CK-MB (CK-2) C-Reactive Protein Total Protein Albumin Troponin T HDL Cholesterol Arterial Blood Glucose Urine WBC (Auto) Urine Creatinine Urine Total Protein Coronavirus (PCR) Crossmatch 07/02/20 07/02/20 07/02/20 04:11 04:23 05:54 WBC RBC Hgb Hct MCHC RDW Lymph % (Auto) [place] % (Auto) Eos % (Auto) Lymph # [place] # Lymph # (Auto) [place] # (Auto) Seg Neutrophils % Seg Neuts % (Manual) Lymphocytes % (Manual) Seg Neutrophils # Seg Neutrophils # Man Lymphocytes # (Manual) Monocytes % (Manual) Eosinophils % (Manual) Monocytes # (Manual) Eosinophils # (Manual) D-Dimer Heparin Anti-Xa Level ABG pH POC ABG pCO2 POC ABG pO2 ABG pO2 ABG HCO3 ABG O2 Saturation ABG Base Excess ABG Hemoglobin 5.4 L ABG Oxyhemoglobin VBG pH ABG Sodium ABG Potassium ABG Glucose Oxyhemoglobin Sodium Potassium Chloride 108.6 H Carbon Dioxide BUN 72 H Creatinine Glucose 112 H POC Glucose 137 H Lactic Acid Calcium 7.8 L Ferritin AST Alkaline Phosphatase Magnesium Lactate Dehydrogenase Total Creatine Kinase CK-MB (CK-2) C-Reactive Protein Total Protein Albumin Troponin T HDL Cholesterol Arterial Blood Glucose Urine WBC (Auto) Urine Creatinine Urine Total Protein Coronavirus (PCR) Crossmatch 07/02/20 07/02/20 07/02/20 11:38 18:04 23:59 WBC RBC Hgb Hct MCHC RDW Lymph % (Auto) [place] % (Auto) Eos % (Auto) Lymph # [place] # Lymph # (Auto) [place] # (Auto) Seg Neutrophils % Seg Neuts % (Manual) Lymphocytes % (Manual) Seg Neutrophils # Seg Neutrophils # Man Lymphocytes # (Manual) Monocytes % (Manual) Eosinophils % (Manual) Monocytes # (Manual) Eosinophils # (Manual) D-Dimer Heparin Anti-Xa Level ABG pH POC ABG pCO2 POC ABG pO2 ABG pO2 ABG HCO3 ABG O2 Saturation ABG Base Excess ABG Hemoglobin ABG Oxyhemoglobin VBG pH ABG Sodium ABG Potassium ABG Glucose Oxyhemoglobin Sodium Potassium Chloride Carbon Dioxide BUN Creatinine Glucose POC Glucose 128 H 135 H 156 H Lactic Acid Calcium Ferritin AST Alkaline Phosphatase Magnesium Lactate Dehydrogenase Total Creatine Kinase CK-MB (CK-2) C-Reactive Protein Total Protein Albumin Troponin T HDL Cholesterol Arterial Blood Glucose Urine WBC (Auto) Urine Creatinine Urine Total Protein Coronavirus (PCR) Crossmatch 07/03/20 07/03/20 07/03/20 03:49 06:00 11:31 WBC RBC Hgb Hct MCHC RDW Lymph % (Auto) [place] % (Auto) Eos % (Auto) Lymph # [place] # Lymph # (Auto) [place] # (Auto) Seg Neutrophils % Seg Neuts % (Manual) Lymphocytes % (Manual) Seg Neutrophils # Seg Neutrophils # Man Lymphocytes # (Manual) Monocytes % (Manual) Eosinophils % (Manual) Monocytes # (Manual) Eosinophils # (Manual) D-Dimer Heparin Anti-Xa Level ABG pH POC ABG pCO2 POC ABG pO2 ABG pO2 121.0 H ABG HCO3 ABG O2 Saturation ABG Base Excess ABG Hemoglobin 8.5 L ABG Oxyhemoglobin VBG pH ABG Sodium ABG Potassium ABG Glucose Oxyhemoglobin Sodium Potassium Chloride Carbon Dioxide BUN Creatinine Glucose POC Glucose 135 H 141 H Lactic Acid Calcium Ferritin AST Alkaline Phosphatase Magnesium Lactate Dehydrogenase Total Creatine Kinase CK-MB (CK-2) C-Reactive Protein Total Protein Albumin Troponin T HDL Cholesterol Arterial Blood Glucose Urine WBC (Auto) Urine Creatinine Urine Total Protein Coronavirus (PCR) Crossmatch 07/03/20 07/03/20 07/04/20 16:07 17:40 05:49 WBC RBC Hgb Hct MCHC RDW Lymph % (Auto) [place] % (Auto) Eos % (Auto) Lymph # [place] # Lymph # (Auto) [place] # (Auto) Seg Neutrophils % Seg Neuts % (Manual) Lymphocytes % (Manual) Seg Neutrophils # Seg Neutrophils # Man Lymphocytes # (Manual) Monocytes % (Manual) Eosinophils % (Manual) Monocytes # (Manual) Eosinophils # (Manual) D-Dimer Heparin Anti-Xa Level ABG pH POC ABG pCO2 POC ABG pO2 ABG pO2 126.9 H ABG HCO3 ABG O2 Saturation ABG Base Excess ABG Hemoglobin 8.1 L ABG Oxyhemoglobin VBG pH ABG Sodium ABG Potassium ABG Glucose Oxyhemoglobin Sodium Potassium Chloride Carbon Dioxide BUN Creatinine Glucose POC Glucose 120 H 128 H Lactic Acid Calcium Ferritin AST Alkaline Phosphatase Magnesium Lactate Dehydrogenase Total Creatine Kinase CK-MB (CK-2) C-Reactive Protein Total Protein Albumin Troponin T HDL Cholesterol Arterial Blood Glucose Urine WBC (Auto) Urine Creatinine Urine Total Protein Coronavirus (PCR) Crossmatch 07/04/20 07/04/20 07/05/20 11:54 18:00 00:07 WBC RBC Hgb Hct MCHC RDW Lymph % (Auto) [place] % (Auto) Eos % (Auto) Lymph # [place] # Lymph # (Auto) [place] # (Auto) Seg Neutrophils % Seg Neuts % (Manual) Lymphocytes % (Manual) Seg Neutrophils # Seg Neutrophils # Man Lymphocytes # (Manual) Monocytes % (Manual) Eosinophils % (Manual) Monocytes # (Manual) Eosinophils # (Manual) D-Dimer Heparin Anti-Xa Level ABG pH POC ABG pCO2 POC ABG pO2 ABG pO2 ABG HCO3 ABG O2 Saturation ABG Base Excess ABG Hemoglobin ABG Oxyhemoglobin VBG pH ABG Sodium ABG Potassium ABG Glucose Oxyhemoglobin Sodium Potassium Chloride Carbon Dioxide BUN Creatinine Glucose POC Glucose 168 H 133 H 121 H Lactic Acid Calcium Ferritin AST Alkaline Phosphatase Magnesium Lactate Dehydrogenase Total Creatine Kinase CK-MB (CK-2) C-Reactive Protein Total Protein Albumin Troponin T HDL Cholesterol Arterial Blood Glucose Urine WBC (Auto) Urine Creatinine Urine Total Protein Coronavirus (PCR) Crossmatch 07/05/20 07/05/20 07/05/20 01:12 02:30 12:09 WBC RBC 2.35 L Hgb 6.9 L Hct 21.1 L MCHC RDW 16.8 H Lymph % (Auto) Rush % (Auto) Eos % (Auto) Lymph # Rush # Lymph # (Auto) Rush # (Auto) Seg Neutrophils % Seg Neuts % (Manual) 74.0 H Lymphocytes % (Manual) 12.0 L Seg Neutrophils # Seg Neutrophils # Man 8.0 H Lymphocytes # (Manual) Monocytes % (Manual) 9.0 H Eosinophils % (Manual) Monocytes # (Manual) 1.0 H Eosinophils # (Manual) D-Dimer Heparin Anti-Xa Level ABG pH POC ABG pCO2 POC ABG pO2 ABG pO2 ABG HCO3 ABG O2 Saturation ABG Base Excess ABG Hemoglobin ABG Oxyhemoglobin VBG pH ABG Sodium ABG Potassium ABG Glucose Oxyhemoglobin Sodium Potassium Chloride Carbon Dioxide BUN Creatinine Glucose POC Glucose 132 H Lactic Acid Calcium Ferritin AST Alkaline Phosphatase Magnesium Lactate Dehydrogenase Total Creatine Kinase CK-MB (CK-2) C-Reactive Protein Total Protein Albumin Troponin T HDL Cholesterol Arterial Blood Glucose Urine WBC (Auto) Urine Creatinine Urine Total Protein Coronavirus (PCR) Crossmatch See Detail 07/05/20 07/05/20 07/05/20 13:05 18:04 23:13 WBC RBC 2.57 L Hgb 7.7 L Hct 23.0 L MCHC RDW 16.9 H Lymph % (Auto) Rush % (Auto) Eos % (Auto) Lymph # Rush # Lymph # (Auto) Rush # (Auto) Seg Neutrophils % Seg Neuts % (Manual) Lymphocytes % (Manual) Seg Neutrophils # Seg Neutrophils # Man Lymphocytes # (Manual) Monocytes % (Manual) Eosinophils % (Manual) Monocytes # (Manual) Eosinophils # (Manual) D-Dimer Heparin Anti-Xa Level ABG pH 7.32 L POC ABG pCO2 POC ABG pO2 ABG pO2 78.3 L ABG HCO3 ABG O2 Saturation ABG Base Excess -2.6 L ABG Hemoglobin 7.3 L ABG Oxyhemoglobin VBG pH ABG Sodium ABG Potassium ABG Glucose Oxyhemoglobin Sodium Potassium Chloride Carbon Dioxide BUN Creatinine Glucose POC Glucose 160 H Lactic Acid Calcium Ferritin AST Alkaline Phosphatase Magnesium Lactate Dehydrogenase Total Creatine Kinase CK-MB (CK-2) C-Reactive Protein Total Protein Albumin Troponin T HDL Cholesterol Arterial Blood Glucose Urine WBC (Auto) Urine Creatinine Urine Total Protein Coronavirus (PCR) Crossmatch 07/05/20 07/05/20 07/06/20 23:13 23:43 13:20 WBC RBC Hgb Hct MCHC RDW Lymph % (Auto) Rush % (Auto) Eos % (Auto) Lymph # Rush # Lymph # (Auto) [place] # (Auto) Seg Neutrophils % Seg Neuts % (Manual) Lymphocytes % (Manual) Seg Neutrophils # Seg Neutrophils # Man Lymphocytes # (Manual) Monocytes % (Manual) Eosinophils % (Manual) Monocytes # (Manual) Eosinophils # (Manual) D-Dimer Heparin Anti-Xa Level ABG pH POC ABG pCO2 POC ABG pO2 ABG pO2 ABG HCO3 ABG O2 Saturation ABG Base Excess ABG Hemoglobin ABG Oxyhemoglobin VBG pH ABG Sodium ABG Potassium ABG Glucose Oxyhemoglobin Sodium Potassium Chloride Carbon Dioxide 20 L BUN 80 H Creatinine 2.4 H D Glucose 124 H POC Glucose 121 H Lactic Acid Calcium 7.6 L Ferritin AST Alkaline Phosphatase Magnesium Lactate Dehydrogenase Total Creatine Kinase CK-MB (CK-2) C-Reactive Protein Total Protein Albumin Troponin T HDL Cholesterol Arterial Blood Glucose Urine WBC (Auto) Urine Creatinine 33.3 H Urine Total Protein Coronavirus (PCR) Crossmatch 07/06/20 07/06/20 07/07/20 14:48 17:28 00:12 WBC RBC Hgb Hct MCHC RDW Lymph % (Auto) [place] % (Auto) Eos % (Auto) Lymph # Rush # Lymph # (Auto) [place] # (Auto) Seg Neutrophils % Seg Neuts % (Manual) Lymphocytes % (Manual) Seg Neutrophils # Seg Neutrophils # Man Lymphocytes # (Manual) Monocytes % (Manual) Eosinophils % (Manual) Monocytes # (Manual) Eosinophils # (Manual) D-Dimer Heparin Anti-Xa Level ABG pH POC ABG pCO2 POC ABG pO2 ABG pO2 ABG HCO3 ABG O2 Saturation ABG Base Excess ABG Hemoglobin ABG Oxyhemoglobin VBG pH ABG Sodium ABG Potassium ABG Glucose Oxyhemoglobin Sodium 136 L Potassium 5.5 H Chloride Carbon Dioxide 19 L BUN 82 H Creatinine 2.5 H Glucose 113 H POC Glucose 133 H 154 H Lactic Acid Calcium 7.7 L Ferritin AST Alkaline Phosphatase Magnesium Lactate Dehydrogenase Total Creatine Kinase CK-MB (CK-2) C-Reactive Protein Total Protein Albumin Troponin T HDL Cholesterol Arterial Blood Glucose Urine WBC (Auto) Urine Creatinine Urine Total Protein Coronavirus (PCR) Crossmatch 07/07/20 07/07/20 07/07/20 04:15 04:15 05:31 WBC RBC 2.28 L Hgb 6.8 L Hct 20.7 L MCHC RDW 16.8 H Lymph % (Auto) [place] % (Auto) Eos % (Auto) Lymph # Rush # Lymph # (Auto) [place] # (Auto) Seg Neutrophils % Seg Neuts % (Manual) Lymphocytes % (Manual) 13.0 L Seg Neutrophils # Seg Neutrophils # Man Lymphocytes # (Manual) 1.0 L Monocytes % (Manual) 11.0 H Eosinophils % (Manual) Monocytes # (Manual) 0.9 H Eosinophils # (Manual) D-Dimer Heparin Anti-Xa Level ABG pH POC ABG pCO2 POC ABG pO2 ABG pO2 ABG HCO3 ABG O2 Saturation ABG Base Excess ABG Hemoglobin ABG Oxyhemoglobin VBG pH ABG Sodium ABG Potassium ABG Glucose Oxyhemoglobin Sodium Potassium Chloride Carbon Dioxide BUN Creatinine Glucose POC Glucose 135 H Lactic Acid Calcium Ferritin AST Alkaline Phosphatase Magnesium 2.50 H Lactate Dehydrogenase Total Creatine Kinase CK-MB (CK-2) C-Reactive Protein Total Protein Albumin Troponin T HDL Cholesterol Arterial Blood Glucose Urine WBC (Auto) Urine Creatinine Urine Total Protein Coronavirus (PCR) Crossmatch 07/07/20 07/07/20 07/07/20 12:31 13:22 17:55 WBC RBC Hgb Hct MCHC RDW Lymph % (Auto) [place] % (Auto) Eos % (Auto) Lymph # Rush # Lymph # (Auto) [place] # (Auto) Seg Neutrophils % Seg Neuts % (Manual) Lymphocytes % (Manual) Seg Neutrophils # Seg Neutrophils # Man Lymphocytes # (Manual) Monocytes % (Manual) Eosinophils % (Manual) Monocytes # (Manual) Eosinophils # (Manual) D-Dimer Heparin Anti-Xa Level ABG pH POC ABG pCO2 POC ABG pO2 ABG pO2 ABG HCO3 ABG O2 Saturation ABG Base Excess ABG Hemoglobin ABG Oxyhemoglobin VBG pH ABG Sodium ABG Potassium ABG Glucose Oxyhemoglobin Sodium Potassium 5.6 H Chloride Carbon Dioxide BUN 86 H Creatinine 2.9 H Glucose 127 H POC Glucose 131 H 136 H Lactic Acid Calcium 8.1 L Ferritin AST Alkaline Phosphatase Magnesium Lactate Dehydrogenase Total Creatine Kinase CK-MB (CK-2) C-Reactive Protein Total Protein Albumin Troponin T HDL Cholesterol Arterial Blood Glucose Urine WBC (Auto) Urine Creatinine Urine Total Protein Coronavirus (PCR) Crossmatch 07/07/20 07/08/20 07/08/20 23:33 04:14 04:14 WBC RBC 3.28 L Hgb 9.7 L Hct 28.9 L D MCHC RDW 16.4 H Lymph % (Auto) 10.3 L [place] % (Auto) 10.0 H Eos % (Auto) Lymph # Rush # Lymph # (Auto) 1.1 L [place] # (Auto) 1.1 H Seg Neutrophils % 77.2 H Seg Neuts % (Manual) Lymphocytes % (Manual) Seg Neutrophils # 8.2 H Seg Neutrophils # Man Lymphocytes # (Manual) Monocytes % (Manual) Eosinophils % (Manual) Monocytes # (Manual) Eosinophils # (Manual) D-Dimer Heparin Anti-Xa Level ABG pH POC ABG pCO2 POC ABG pO2 ABG pO2 ABG HCO3 ABG O2 Saturation ABG Base Excess ABG Hemoglobin ABG Oxyhemoglobin VBG pH ABG Sodium ABG Potassium ABG Glucose Oxyhemoglobin Sodium 136 L Potassium Chloride Carbon Dioxide BUN 84 H Creatinine 2.8 H Glucose 109 H POC Glucose 159 H Lactic Acid Calcium 8.1 L Ferritin AST Alkaline Phosphatase Magnesium 2.50 H Lactate Dehydrogenase Total Creatine Kinase CK-MB (CK-2) C-Reactive Protein Total Protein Albumin Troponin T HDL Cholesterol Arterial Blood Glucose Urine WBC (Auto) Urine Creatinine Urine Total Protein Coronavirus (PCR) Crossmatch 07/08/20 07/08/20 07/08/20 12:10 18:10 23:50 WBC RBC Hgb Hct MCHC RDW Lymph % (Auto) [place] % (Auto) Eos % (Auto) Lymph # Rush # Lymph # (Auto) [place] # (Auto) Seg Neutrophils % Seg Neuts % (Manual) Lymphocytes % (Manual) Seg Neutrophils # Seg Neutrophils # Man Lymphocytes # (Manual) Monocytes % (Manual) Eosinophils % (Manual) Monocytes # (Manual) Eosinophils # (Manual) D-Dimer Heparin Anti-Xa Level ABG pH POC ABG pCO2 POC ABG pO2 ABG pO2 ABG HCO3 ABG O2 Saturation ABG Base Excess ABG Hemoglobin ABG Oxyhemoglobin VBG pH ABG Sodium ABG Potassium ABG Glucose Oxyhemoglobin Sodium Potassium Chloride Carbon Dioxide BUN Creatinine Glucose POC Glucose 108 H 125 H 141 H Lactic Acid Calcium Ferritin AST Alkaline Phosphatase Magnesium Lactate Dehydrogenase Total Creatine Kinase CK-MB (CK-2) C-Reactive Protein Total Protein Albumin Troponin T HDL Cholesterol Arterial Blood Glucose Urine WBC (Auto) Urine Creatinine Urine Total Protein Coronavirus (PCR) Crossmatch 07/09/20 07/09/20 07/09/20 05:39 11:57 17:56 WBC RBC Hgb Hct MCHC RDW Lymph % (Auto) [place] % (Auto) Eos % (Auto) Lymph # Rush # Lymph # (Auto) [place] # (Auto) Seg Neutrophils % Seg Neuts % (Manual) Lymphocytes % (Manual) Seg Neutrophils # Seg Neutrophils # Man Lymphocytes # (Manual) Monocytes % (Manual) Eosinophils % (Manual) Monocytes # (Manual) Eosinophils # (Manual) D-Dimer Heparin Anti-Xa Level ABG pH POC ABG pCO2 POC ABG pO2 ABG pO2 ABG HCO3 ABG O2 Saturation ABG Base Excess ABG Hemoglobin ABG Oxyhemoglobin VBG pH ABG Sodium ABG Potassium ABG Glucose Oxyhemoglobin Sodium Potassium Chloride Carbon Dioxide BUN Creatinine Glucose POC Glucose 121 H 123 H 119 H Lactic Acid Calcium Ferritin AST Alkaline Phosphatase Magnesium Lactate Dehydrogenase Total Creatine Kinase CK-MB (CK-2) C-Reactive Protein Total Protein Albumin Troponin T HDL Cholesterol Arterial Blood Glucose Urine WBC (Auto) Urine Creatinine Urine Total Protein Coronavirus (PCR) Crossmatch 07/10/20 07/10/20 07/10/20 00:29 05:50 10:41 WBC RBC 3.11 L Hgb 9.2 L Hct 27.6 L MCHC RDW 16.6 H Lymph % (Auto) [place] % (Auto) Eos % (Auto) Lymph # Rush # Lymph # (Auto) [place] # (Auto) Seg Neutrophils % Seg Neuts % (Manual) 78.0 H Lymphocytes % (Manual) 11.0 L Seg Neutrophils # Seg Neutrophils # Man Lymphocytes # (Manual) 1.0 L Monocytes % (Manual) Eosinophils % (Manual) Monocytes # (Manual) Eosinophils # (Manual) D-Dimer Heparin Anti-Xa Level ABG pH POC ABG pCO2 POC ABG pO2 ABG pO2 ABG HCO3 ABG O2 Saturation ABG Base Excess ABG Hemoglobin ABG Oxyhemoglobin VBG pH ABG Sodium ABG Potassium ABG Glucose Oxyhemoglobin Sodium Potassium Chloride Carbon Dioxide BUN Creatinine Glucose POC Glucose 122 H 124 H Lactic Acid Calcium Ferritin AST Alkaline Phosphatase Magnesium Lactate Dehydrogenase Total Creatine Kinase CK-MB (CK-2) C-Reactive Protein Total Protein Albumin Troponin T HDL Cholesterol Arterial Blood Glucose Urine WBC (Auto) Urine Creatinine Urine Total Protein Coronavirus (PCR) Crossmatch 07/10/20 07/10/20 07/10/20 10:41 12:25 18:10 WBC RBC Hgb Hct MCHC RDW Lymph % (Auto) [place] % (Auto) Eos % (Auto) Lymph # Rush # Lymph # (Auto) [place] # (Auto) Seg Neutrophils % Seg Neuts % (Manual) Lymphocytes % (Manual) Seg Neutrophils # Seg Neutrophils # Man Lymphocytes # (Manual) Monocytes % (Manual) Eosinophils % (Manual) Monocytes # (Manual) Eosinophils # (Manual) D-Dimer Heparin Anti-Xa Level ABG pH POC ABG pCO2 POC ABG pO2 ABG pO2 ABG HCO3 ABG O2 Saturation ABG Base Excess ABG Hemoglobin ABG Oxyhemoglobin VBG pH ABG Sodium ABG Potassium ABG Glucose Oxyhemoglobin Sodium Potassium Chloride Carbon Dioxide BUN 85 H Creatinine 2.5 H Glucose 133 H POC Glucose 131 H 134 H Lactic Acid Calcium Ferritin AST Alkaline Phosphatase 131 H Magnesium Lactate Dehydrogenase Total Creatine Kinase CK-MB (CK-2) C-Reactive Protein Total Protein 5.2 L Albumin 1.6 L Troponin T HDL Cholesterol Arterial Blood Glucose Urine WBC (Auto) Urine Creatinine Urine Total Protein Coronavirus (PCR) Crossmatch 07/11/20 07/11/20 07/11/20 00:28 05:57 12:14 WBC RBC Hgb Hct MCHC RDW Lymph % (Auto) [place] % (Auto) Eos % (Auto) Lymph # Rush # Lymph # (Auto) [place] # (Auto) Seg Neutrophils % Seg Neuts % (Manual) Lymphocytes % (Manual) Seg Neutrophils # Seg Neutrophils # Man Lymphocytes # (Manual) Monocytes % (Manual) Eosinophils % (Manual) Monocytes # (Manual) Eosinophils # (Manual) D-Dimer Heparin Anti-Xa Level ABG pH POC ABG pCO2 POC ABG pO2 ABG pO2 ABG HCO3 ABG O2 Saturation ABG Base Excess ABG Hemoglobin ABG Oxyhemoglobin VBG pH ABG Sodium ABG Potassium ABG Glucose Oxyhemoglobin Sodium Potassium Chloride Carbon Dioxide BUN Creatinine Glucose POC Glucose 140 H 148 H 147 H Lactic Acid Calcium Ferritin AST Alkaline Phosphatase Magnesium Lactate Dehydrogenase Total Creatine Kinase CK-MB (CK-2) C-Reactive Protein Total Protein Albumin Troponin T HDL Cholesterol Arterial Blood Glucose Urine WBC (Auto) Urine Creatinine Urine Total Protein Coronavirus (PCR) Crossmatch 07/11/20 07/11/20 07/12/20 17:28 23:49 05:14 WBC RBC 2.78 L Hgb 8.5 L Hct 25.3 L MCHC RDW 16.7 H Lymph % (Auto) Rush % (Auto) Eos % (Auto) Lymph # Rush # Lymph # (Auto) Rush # (Auto) Seg Neutrophils % Seg Neuts % (Manual) 81.0 H Lymphocytes % (Manual) 6.0 L Seg Neutrophils # Seg Neutrophils # Man Lymphocytes # (Manual) 0.6 L Monocytes % (Manual) 8.0 H Eosinophils % (Manual) Monocytes # (Manual) Eosinophils # (Manual) D-Dimer Heparin Anti-Xa Level ABG pH POC ABG pCO2 POC ABG pO2 ABG pO2 ABG HCO3 ABG O2 Saturation ABG Base Excess ABG Hemoglobin ABG Oxyhemoglobin VBG pH ABG Sodium ABG Potassium ABG Glucose Oxyhemoglobin Sodium Potassium Chloride Carbon Dioxide BUN Creatinine Glucose POC Glucose 175 H 114 H Lactic Acid Calcium Ferritin AST Alkaline Phosphatase Magnesium Lactate Dehydrogenase Total Creatine Kinase CK-MB (CK-2) C-Reactive Protein Total Protein Albumin Troponin T HDL Cholesterol Arterial Blood Glucose Urine WBC (Auto) Urine Creatinine Urine Total Protein Coronavirus (PCR) Crossmatch 07/12/20 07/12/20 07/12/20 05:14 05:44 11:32 WBC RBC Hgb Hct MCHC RDW Lymph % (Auto) [place] % (Auto) Eos % (Auto) Lymph # Rush # Lymph # (Auto) [place] # (Auto) Seg Neutrophils % Seg Neuts % (Manual) Lymphocytes % (Manual) Seg Neutrophils # Seg Neutrophils # Man Lymphocytes # (Manual) Monocytes % (Manual) Eosinophils % (Manual) Monocytes # (Manual) Eosinophils # (Manual) D-Dimer Heparin Anti-Xa Level ABG pH POC ABG pCO2 POC ABG pO2 ABG pO2 ABG HCO3 ABG O2 Saturation ABG Base Excess ABG Hemoglobin ABG Oxyhemoglobin VBG pH ABG Sodium ABG Potassium ABG Glucose Oxyhemoglobin Sodium Potassium Chloride Carbon Dioxide BUN 79 H Creatinine 2.2 H Glucose 131 H POC Glucose 116 H 132 H Lactic Acid Calcium Ferritin AST Alkaline Phosphatase Magnesium Lactate Dehydrogenase Total Creatine Kinase CK-MB (CK-2) C-Reactive Protein Total Protein Albumin Troponin T HDL Cholesterol Arterial Blood Glucose Urine WBC (Auto) Urine Creatinine Urine Total Protein Coronavirus (PCR) Crossmatch 07/12/20 07/13/20 07/13/20 17:53 00:18 04:53 WBC RBC 2.86 L Hgb 8.4 L Hct 25.7 L MCHC RDW 16.8 H Lymph % (Auto) [place] % (Auto) Eos % (Auto) Lymph # Rush # Lymph # (Auto) Rush # (Auto) Seg Neutrophils % Seg Neuts % (Manual) 84.0 H Lymphocytes % (Manual) 7.0 L Seg Neutrophils # Seg Neutrophils # Man Lymphocytes # (Manual) 0.6 L Monocytes % (Manual) Eosinophils % (Manual) Monocytes # (Manual) Eosinophils # (Manual) D-Dimer Heparin Anti-Xa Level ABG pH POC ABG pCO2 POC ABG pO2 ABG pO2 ABG HCO3 ABG O2 Saturation ABG Base Excess ABG Hemoglobin ABG Oxyhemoglobin VBG pH ABG Sodium ABG Potassium ABG Glucose Oxyhemoglobin Sodium Potassium Chloride Carbon Dioxide BUN Creatinine Glucose POC Glucose 155 H 162 H Lactic Acid Calcium Ferritin AST Alkaline Phosphatase Magnesium Lactate Dehydrogenase Total Creatine Kinase CK-MB (CK-2) C-Reactive Protein Total Protein Albumin Troponin T HDL Cholesterol Arterial Blood Glucose Urine WBC (Auto) Urine Creatinine Urine Total Protein Coronavirus (PCR) Crossmatch 07/13/20 07/13/20 07/13/20 04:53 06:14 12:50 WBC RBC Hgb Hct MCHC RDW Lymph % (Auto) [place] % (Auto) Eos % (Auto) Lymph # Rush # Lymph # (Auto) [place] # (Auto) Seg Neutrophils % Seg Neuts % (Manual) Lymphocytes % (Manual) Seg Neutrophils # Seg Neutrophils # Man Lymphocytes # (Manual) Monocytes % (Manual) Eosinophils % (Manual) Monocytes # (Manual) Eosinophils # (Manual) D-Dimer Heparin Anti-Xa Level ABG pH POC ABG pCO2 POC ABG pO2 ABG pO2 ABG HCO3 ABG O2 Saturation ABG Base Excess ABG Hemoglobin ABG Oxyhemoglobin VBG pH ABG Sodium ABG Potassium ABG Glucose Oxyhemoglobin Sodium 136 L Potassium Chloride Carbon Dioxide BUN 78 H Creatinine 2.0 H Glucose 130 H POC Glucose 141 H 146 H Lactic Acid Calcium Ferritin AST Alkaline Phosphatase Magnesium Lactate Dehydrogenase Total Creatine Kinase CK-MB (CK-2) C-Reactive Protein Total Protein Albumin Troponin T HDL Cholesterol Arterial Blood Glucose Urine WBC (Auto) Urine Creatinine Urine Total Protein Coronavirus (PCR) Crossmatch 07/13/20 07/14/20 07/14/20 18:27 00:22 05:43 WBC RBC Hgb Hct MCHC RDW Lymph % (Auto) [place] % (Auto) Eos % (Auto) Lymph # Rush # Lymph # (Auto) [place] # (Auto) Seg Neutrophils % Seg Neuts % (Manual) Lymphocytes % (Manual) Seg Neutrophils # Seg Neutrophils # Man Lymphocytes # (Manual) Monocytes % (Manual) Eosinophils % (Manual) Monocytes # (Manual) Eosinophils # (Manual) D-Dimer Heparin Anti-Xa Level ABG pH POC ABG pCO2 POC ABG pO2 ABG pO2 ABG HCO3 ABG O2 Saturation ABG Base Excess ABG Hemoglobin ABG Oxyhemoglobin VBG pH ABG Sodium ABG Potassium ABG Glucose Oxyhemoglobin Sodium Potassium Chloride Carbon Dioxide BUN Creatinine Glucose POC Glucose 149 H 157 H 169 H Lactic Acid Calcium Ferritin AST Alkaline Phosphatase Magnesium Lactate Dehydrogenase Total Creatine Kinase CK-MB (CK-2) C-Reactive Protein Total Protein Albumin Troponin T HDL Cholesterol Arterial Blood Glucose Urine WBC (Auto) Urine Creatinine Urine Total Protein Coronavirus (PCR) Crossmatch 07/14/20 07/14/20 07/14/20 08:04 12:12 17:23 WBC RBC Hgb Hct MCHC RDW Lymph % (Auto) [place] % (Auto) Eos % (Auto) Lymph # Rush # Lymph # (Auto) [place] # (Auto) Seg Neutrophils % Seg Neuts % (Manual) Lymphocytes % (Manual) Seg Neutrophils # Seg Neutrophils # Man Lymphocytes # (Manual) Monocytes % (Manual) Eosinophils % (Manual) Monocytes # (Manual) Eosinophils # (Manual) D-Dimer Heparin Anti-Xa Level ABG pH POC ABG pCO2 POC ABG pO2 ABG pO2 ABG HCO3 ABG O2 Saturation ABG Base Excess ABG Hemoglobin ABG Oxyhemoglobin VBG pH ABG Sodium ABG Potassium ABG Glucose Oxyhemoglobin Sodium Potassium Chloride Carbon Dioxide BUN Creatinine Glucose POC Glucose 185 H 138 H Lactic Acid Calcium Ferritin AST Alkaline Phosphatase Magnesium Lactate Dehydrogenase Total Creatine Kinase CK-MB (CK-2) C-Reactive Protein Total Protein Albumin Troponin T HDL Cholesterol Arterial Blood Glucose Urine WBC (Auto) Urine Creatinine Urine Total Protein Coronavirus (PCR) Positive A Crossmatch 07/15/20 07/15/20 07/15/20 00:04 06:06 12:00 WBC RBC Hgb Hct MCHC RDW Lymph % (Auto) [place] % (Auto) Eos % (Auto) Lymph # Rush # Lymph # (Auto) [place] # (Auto) Seg Neutrophils % Seg Neuts % (Manual) Lymphocytes % (Manual) Seg Neutrophils # Seg Neutrophils # Man Lymphocytes # (Manual) Monocytes % (Manual) Eosinophils % (Manual) Monocytes # (Manual) Eosinophils # (Manual) D-Dimer Heparin Anti-Xa Level ABG pH POC ABG pCO2 POC ABG pO2 ABG pO2 ABG HCO3 ABG O2 Saturation ABG Base Excess ABG Hemoglobin ABG Oxyhemoglobin VBG pH ABG Sodium ABG Potassium ABG Glucose Oxyhemoglobin Sodium Potassium Chloride Carbon Dioxide BUN Creatinine Glucose POC Glucose 121 H 140 H 137 H Lactic Acid Calcium Ferritin AST Alkaline Phosphatase Magnesium Lactate Dehydrogenase Total Creatine Kinase CK-MB (CK-2) C-Reactive Protein Total Protein Albumin Troponin T HDL Cholesterol Arterial Blood Glucose Urine WBC (Auto) Urine Creatinine Urine Total Protein Coronavirus (PCR) Crossmatch 07/15/20 07/15/20 07/16/20 17:53 23:53 05:26 WBC RBC Hgb Hct MCHC RDW Lymph % (Auto) [place] % (Auto) Eos % (Auto) Lymph # Rush # Lymph # (Auto) [place] # (Auto) Seg Neutrophils % Seg Neuts % (Manual) Lymphocytes % (Manual) Seg Neutrophils # Seg Neutrophils # Man Lymphocytes # (Manual) Monocytes % (Manual) Eosinophils % (Manual) Monocytes # (Manual) Eosinophils # (Manual) D-Dimer Heparin Anti-Xa Level ABG pH POC ABG pCO2 POC ABG pO2 ABG pO2 ABG HCO3 ABG O2 Saturation ABG Base Excess ABG Hemoglobin ABG Oxyhemoglobin VBG pH ABG Sodium ABG Potassium ABG Glucose Oxyhemoglobin Sodium Potassium Chloride Carbon Dioxide BUN Creatinine Glucose POC Glucose 161 H 156 H 152 H Lactic Acid Calcium Ferritin AST Alkaline Phosphatase Magnesium Lactate Dehydrogenase Total Creatine Kinase CK-MB (CK-2) C-Reactive Protein Total Protein Albumin Troponin T HDL Cholesterol Arterial Blood Glucose Urine WBC (Auto) Urine Creatinine Urine Total Protein Coronavirus (PCR) Crossmatch 07/16/20 07/17/20 07/17/20 17:44 00:07 12:06 WBC RBC Hgb Hct MCHC RDW Lymph % (Auto) [place] % (Auto) Eos % (Auto) Lymph # Rush # Lymph # (Auto) [place] # (Auto) Seg Neutrophils % Seg Neuts % (Manual) Lymphocytes % (Manual) Seg Neutrophils # Seg Neutrophils # Man Lymphocytes # (Manual) Monocytes % (Manual) Eosinophils % (Manual) Monocytes # (Manual) Eosinophils # (Manual) D-Dimer Heparin Anti-Xa Level ABG pH POC ABG pCO2 POC ABG pO2 ABG pO2 ABG HCO3 ABG O2 Saturation ABG Base Excess ABG Hemoglobin ABG Oxyhemoglobin VBG pH ABG Sodium ABG Potassium ABG Glucose Oxyhemoglobin Sodium Potassium Chloride Carbon Dioxide BUN Creatinine Glucose POC Glucose 126 H 189 H 155 H Lactic Acid Calcium Ferritin AST Alkaline Phosphatase Magnesium Lactate Dehydrogenase Total Creatine Kinase CK-MB (CK-2) C-Reactive Protein Total Protein Albumin Troponin T HDL Cholesterol Arterial Blood Glucose Urine WBC (Auto) Urine Creatinine Urine Total Protein Coronavirus (PCR) Crossmatch 07/17/20 07/17/20 07/18/20 18:20 23:25 04:24 WBC RBC Hgb Hct MCHC RDW Lymph % (Auto) [place] % (Auto) Eos % (Auto) Lymph # Rush # Lymph # (Auto) [place] # (Auto) Seg Neutrophils % Seg Neuts % (Manual) Lymphocytes % (Manual) Seg Neutrophils # Seg Neutrophils # Man Lymphocytes # (Manual) Monocytes % (Manual) Eosinophils % (Manual) Monocytes # (Manual) Eosinophils # (Manual) D-Dimer Heparin Anti-Xa Level ABG pH POC ABG pCO2 POC ABG pO2 ABG pO2 ABG HCO3 ABG O2 Saturation ABG Base Excess ABG Hemoglobin 8.8 L ABG Oxyhemoglobin VBG pH ABG Sodium 131.6 L ABG Potassium 4.9 H ABG Glucose 131 H Oxyhemoglobin Sodium Potassium Chloride Carbon Dioxide BUN Creatinine Glucose POC Glucose 206 H 161 H Lactic Acid Calcium Ferritin AST Alkaline Phosphatase Magnesium Lactate Dehydrogenase Total Creatine Kinase CK-MB (CK-2) C-Reactive Protein Total Protein Albumin Troponin T HDL Cholesterol Arterial Blood Glucose 131 H Urine WBC (Auto) Urine Creatinine Urine Total Protein Coronavirus (PCR) Crossmatch 07/18/20 07/18/20 07/18/20 05:16 11:53 18:11 WBC RBC Hgb Hct MCHC RDW Lymph % (Auto) [place] % (Auto) Eos % (Auto) Lymph # Rush # Lymph # (Auto) [place] # (Auto) Seg Neutrophils % Seg Neuts % (Manual) Lymphocytes % (Manual) Seg Neutrophils # Seg Neutrophils # Man Lymphocytes # (Manual) Monocytes % (Manual) Eosinophils % (Manual) Monocytes # (Manual) Eosinophils # (Manual) D-Dimer Heparin Anti-Xa Level ABG pH POC ABG pCO2 POC ABG pO2 ABG pO2 ABG HCO3 ABG O2 Saturation ABG Base Excess ABG Hemoglobin ABG Oxyhemoglobin VBG pH ABG Sodium ABG Potassium ABG Glucose Oxyhemoglobin Sodium Potassium Chloride Carbon Dioxide BUN Creatinine Glucose POC Glucose 140 H 176 H 143 H Lactic Acid Calcium Ferritin AST Alkaline Phosphatase Magnesium Lactate Dehydrogenase Total Creatine Kinase CK-MB (CK-2) C-Reactive Protein Total Protein Albumin Troponin T HDL Cholesterol Arterial Blood Glucose Urine WBC (Auto) Urine Creatinine Urine Total Protein Coronavirus (PCR) Crossmatch 07/18/20 07/19/20 07/19/20 23:51 01:05 01:05 WBC RBC 2.76 L Hgb 7.9 L Hct 24.5 L MCHC RDW 17.6 H Lymph % (Auto) 11.6 L [place] % (Auto) 13.1 H Eos % (Auto) Lymph # Rush # Lymph # (Auto) 1.0 L [place] # (Auto) 1.1 H Seg Neutrophils % 70.9 H Seg Neuts % (Manual) Lymphocytes % (Manual) Seg Neutrophils # Seg Neutrophils # Man Lymphocytes # (Manual) Monocytes % (Manual) Eosinophils % (Manual) Monocytes # (Manual) Eosinophils # (Manual) D-Dimer Heparin Anti-Xa Level ABG pH POC ABG pCO2 POC ABG pO2 ABG pO2 ABG HCO3 ABG O2 Saturation ABG Base Excess ABG Hemoglobin ABG Oxyhemoglobin VBG pH ABG Sodium ABG Potassium ABG Glucose Oxyhemoglobin Sodium Potassium Chloride Carbon Dioxide BUN 86 H Creatinine 1.7 H Glucose 149 H POC Glucose 159 H Lactic Acid Calcium Ferritin AST Alkaline Phosphatase Magnesium Lactate Dehydrogenase Total Creatine Kinase CK-MB (CK-2) C-Reactive Protein Total Protein Albumin Troponin T HDL Cholesterol Arterial Blood Glucose Urine WBC (Auto) Urine Creatinine Urine Total Protein Coronavirus (PCR) Crossmatch 07/19/20 07/19/20 07/19/20 05:54 12:46 17:48 WBC RBC Hgb Hct MCHC RDW Lymph % (Auto) Rush % (Auto) Eos % (Auto) Lymph # Rush # Lymph # (Auto) Rush # (Auto) Seg Neutrophils % Seg Neuts % (Manual) Lymphocytes % (Manual) Seg Neutrophils # Seg Neutrophils # Man Lymphocytes # (Manual) Monocytes % (Manual) Eosinophils % (Manual) Monocytes # (Manual) Eosinophils # (Manual) D-Dimer Heparin Anti-Xa Level ABG pH POC ABG pCO2 POC ABG pO2 ABG pO2 ABG HCO3 ABG O2 Saturation ABG Base Excess ABG Hemoglobin ABG Oxyhemoglobin VBG pH ABG Sodium ABG Potassium ABG Glucose Oxyhemoglobin Sodium Potassium Chloride Carbon Dioxide BUN Creatinine Glucose POC Glucose 176 H 127 H 123 H Lactic Acid Calcium Ferritin AST Alkaline Phosphatase Magnesium Lactate Dehydrogenase Total Creatine Kinase CK-MB (CK-2) C-Reactive Protein Total Protein Albumin Troponin T HDL Cholesterol Arterial Blood Glucose Urine WBC (Auto) Urine Creatinine Urine Total Protein Coronavirus (PCR) Crossmatch 07/20/20 07/20/2020 00:34 05:28 12:10 WBC RBC Hgb Hct MCHC RDW Lymph % (Auto) Rush % (Auto) Eos % (Auto) Lymph # Rush # Lymph # (Auto) Rush # (Auto) Seg Neutrophils % Seg Neuts % (Manual) Lymphocytes % (Manual) Seg Neutrophils # Seg Neutrophils # Man Lymphocytes # (Manual) Monocytes % (Manual) Eosinophils % (Manual) Monocytes # (Manual) Eosinophils # (Manual) D-Dimer Heparin Anti-Xa Level ABG pH POC ABG pCO2 POC ABG pO2 ABG pO2 ABG HCO3 ABG O2 Saturation ABG Base Excess ABG Hemoglobin ABG Oxyhemoglobin VBG pH ABG Sodium ABG Potassium ABG Glucose Oxyhemoglobin Sodium Potassium Chloride Carbon Dioxide BUN Creatinine Glucose POC Glucose 147 H 110 H 149 H Lactic Acid Calcium Ferritin AST Alkaline Phosphatase Magnesium Lactate Dehydrogenase Total Creatine Kinase CK-MB (CK-2) C-Reactive Protein Total Protein Albumin Troponin T HDL Cholesterol Arterial Blood Glucose Urine WBC (Auto) Urine Creatinine Urine Total Protein Coronavirus (PCR) Crossmatch 07/20/20 07/21/20 07/21/20 17:00 00:11 05:30 WBC RBC Hgb Hct MCHC RDW Lymph % (Auto) Rush % (Auto) Eos % (Auto) Lymph # Rush # Lymph # (Auto) Rush # (Auto) Seg Neutrophils % Seg Neuts % (Manual) Lymphocytes % (Manual) Seg Neutrophils # Seg Neutrophils # Man Lymphocytes # (Manual) Monocytes % (Manual) Eosinophils % (Manual) Monocytes # (Manual) Eosinophils # (Manual) D-Dimer Heparin Anti-Xa Level ABG pH POC ABG pCO2 POC ABG pO2 ABG pO2 ABG HCO3 ABG O2 Saturation ABG Base Excess ABG Hemoglobin ABG Oxyhemoglobin VBG pH ABG Sodium ABG Potassium ABG Glucose Oxyhemoglobin Sodium Potassium Chloride Carbon Dioxide BUN Creatinine Glucose POC Glucose 173 H 128 H 153 H Lactic Acid Calcium Ferritin AST Alkaline Phosphatase Magnesium Lactate Dehydrogenase Total Creatine Kinase CK-MB (CK-2) C-Reactive Protein Total Protein Albumin Troponin T HDL Cholesterol Arterial Blood Glucose Urine WBC (Auto) Urine Creatinine Urine Total Protein Coronavirus (PCR) Crossmatch 07/21/20 07/21/20 07/22/20 12:21 18:17 00:45 WBC RBC Hgb Hct MCHC RDW Lymph % (Auto) Rush % (Auto) Eos % (Auto) Lymph # Rush # Lymph # (Auto) Rush # (Auto) Seg Neutrophils % Seg Neuts % (Manual) Lymphocytes % (Manual) Seg Neutrophils # Seg Neutrophils # Man Lymphocytes # (Manual) Monocytes % (Manual) Eosinophils % (Manual) Monocytes # (Manual) Eosinophils # (Manual) D-Dimer Heparin Anti-Xa Level ABG pH POC ABG pCO2 POC ABG pO2 ABG pO2 ABG HCO3 ABG O2 Saturation ABG Base Excess ABG Hemoglobin ABG Oxyhemoglobin VBG pH ABG Sodium ABG Potassium ABG Glucose Oxyhemoglobin Sodium Potassium Chloride Carbon Dioxide BUN Creatinine Glucose POC Glucose 144 H 160 H 128 H Lactic Acid Calcium Ferritin AST Alkaline Phosphatase Magnesium Lactate Dehydrogenase Total Creatine Kinase CK-MB (CK-2) C-Reactive Protein Total Protein Albumin Troponin T HDL Cholesterol Arterial Blood Glucose Urine WBC (Auto) Urine Creatinine Urine Total Protein Coronavirus (PCR) Crossmatch 07/22/20 07/22/20 07/22/20 05:52 12:03 18:23 WBC RBC Hgb Hct MCHC RDW Lymph % (Auto) Rush % (Auto) Eos % (Auto) Lymph # Rush # Lymph # (Auto) Rush # (Auto) Seg Neutrophils % Seg Neuts % (Manual) Lymphocytes % (Manual) Seg Neutrophils # Seg Neutrophils # Man Lymphocytes # (Manual) Monocytes % (Manual) Eosinophils % (Manual) Monocytes # (Manual) Eosinophils # (Manual) D-Dimer Heparin Anti-Xa Level ABG pH POC ABG pCO2 POC ABG pO2 ABG pO2 ABG HCO3 ABG O2 Saturation ABG Base Excess ABG Hemoglobin ABG Oxyhemoglobin VBG pH ABG Sodium ABG Potassium ABG Glucose Oxyhemoglobin Sodium Potassium Chloride Carbon Dioxide BUN Creatinine Glucose POC Glucose 126 H 157 H 152 H Lactic Acid Calcium Ferritin AST Alkaline Phosphatase Magnesium Lactate Dehydrogenase Total Creatine Kinase CK-MB (CK-2) C-Reactive Protein Total Protein Albumin Troponin T HDL Cholesterol Arterial Blood Glucose Urine WBC (Auto) Urine Creatinine Urine Total Protein Coronavirus (PCR) Crossmatch 07/22/20 07/23/20 23:20 06:06 WBC RBC Hgb Hct MCHC RDW Lymph % (Auto) Rush % (Auto) Eos % (Auto) Lymph # Rush # Lymph # (Auto) Rush # (Auto) Seg Neutrophils % Seg Neuts % (Manual) Lymphocytes % (Manual) Seg Neutrophils # Seg Neutrophils # Man Lymphocytes # (Manual) Monocytes % (Manual) Eosinophils % (Manual) Monocytes # (Manual) Eosinophils # (Manual) D-Dimer Heparin Anti-Xa Level ABG pH POC ABG pCO2 POC ABG pO2 ABG pO2 ABG HCO3 ABG O2 Saturation ABG Base Excess ABG Hemoglobin ABG Oxyhemoglobin VBG pH ABG Sodium ABG Potassium ABG Glucose Oxyhemoglobin Sodium Potassium Chloride Carbon Dioxide BUN Creatinine Glucose POC Glucose 122 H 143 H Lactic Acid Calcium Ferritin AST Alkaline Phosphatase Magnesium Lactate Dehydrogenase Total Creatine Kinase CK-MB (CK-2) C-Reactive Protein Total Protein Albumin Troponin T HDL Cholesterol Arterial Blood Glucose Urine WBC (Auto) Urine Creatinine Urine Total Protein Coronavirus (PCR) Crossmatch Allied health notes reviewed: RT
[2020-07-23] MEDS ORDERED: FOSPHENYTOIN 500 MG PE/10 ML INJ IV ONE (13:02)
--- NOTE | 2020-07-23 13:08 | Progress Note ---
Assessment and Plan 64 yo female with htn, dm, chf, pulm htn, presented to the ED in May w/ shortness of breath that led to cardiac arrest en route to the hospital on 05/28/2020. Hospital course is noteful for acute respiratory failure, covid infection, multifocal pneumonia, morbid obesity, acute toxic/metabolic encephalopathy, acute renal failure, bilateral pulmonary edema/effusions, and noted continued encephalopathy. The patient suffered a second cardiopulmonary arrest on 06/26/2020. She underwent two NCHCT on 05/28/2020 and 06/02/2020 which were both unremarkable for an acute process. Currently, the patient just tested positive for COVID again on 07/14/2020 and is in continued isolation. 1. Hypoxic Encephalopathy - pt's body habitus prevents MRI Brain at this facility's scanner; recommend transfer to a facility w/ MRI scanner that can possibly accomodate pt's body habitus. 2. Seizure - EEG reveals epileptiform discharges and cerebral activity; continue Keppra 1 gram bid; d/c Vimpat; Fosphenytoin 1850 mg IV x 1 dose stat and then dilantin 100 mg iv q8. 3. Therapeutic Drug Monitoring - check dilantin & albumin level in AM and adjust dosing accordingly. 4. Metabolic Encephalopathy - in the setting of underlying infection and meta bolic derangements. 5. Cardiac Arrest - 2 events noted which raises concern regarding the patient's cardiac status/prognosis. 6. COVID-19 - in itself, may trigger seizures; treatment per primary / pulmonology teams. Abdirizak Suero MD Neurology Subjective Date of service: 07/23/20 Principal diagnosis: Ac hypoxemic resp failure; COVID-19; pneumonia; CHF; Pulm HTN; OHS; DM II Interval history: Noted with epileptiform activity and cerebral activity on EEG w/o evidence of brain . Objective - Vital Sign Vital Signs - 12hr 07/23/20 07/23/20 07/23/20 01:10 01:30 02:00 Temperature 97.5 F L Pulse Rate 69 69 Pulse Rate [ From Monitor] Respiratory 14 17 Rate Blood Pressure 161/72 167/59 O2 Sat by Pulse 97 97 Oximetry 07/23/20 07/23/20 07/23/20 02:30 03:00 03:30 Temperature Pulse Rate 70 71 70 Pulse Rate [ From Monitor] Respiratory 21 22 19 Rate Blood Pressure 149/53 154/55 147/53 O2 Sat by Pulse 96 96 95 Oximetry 07/23/20 07/23/20 07/23/20 04:00 04:01 04:18 Temperature 97.6 F Pulse Rate 72 72 71 Pulse Rate [ 72 From Monitor] Respiratory 29 H Rate Blood Pressure 158/79 158/79 155/79 O2 Sat by Pulse 97 96 Oximetry 07/23/20 07/23/20 07/23/20 04:31 05:00 05:30 Temperature Pulse Rate 67 69 69 Pulse Rate [ From Monitor] Respiratory 17 17 12 Rate Blood Pressure 170/57 159/72 171/56 O2 Sat by Pulse 96 98 97 Oximetry 07/23/20 07/23/20 07/23/20 06:00 06:30 07:00 Temperature Pulse Rate 69 70 70 Pulse Rate [ From Monitor] Respiratory 17 16 17 Rate Blood Pressure 169/87 157/61 149/67 O2 Sat by Pulse 97 98 97 Oximetry 07/23/20 07/23/20 07/23/20 07:30 08:00 08:10 Temperature 98.7 F Pulse Rate 71 70 72 Pulse Rate [ 72 From Monitor] Respiratory 16 17 22 Rate Blood Pressure 154/64 162/66 162/66 O2 Sat by Pulse 97 97 97 Oximetry 07/23/20 07/23/20 07/23/20 08:30 09:00 09:30 Temperature Pulse Rate 75 75 70 Pulse Rate [ From Monitor] Respiratory 25 H 23 18 Rate Blood Pressure 150/66 153/44 151/46 O2 Sat by Pulse 96 93 95 Oximetry 07/23/20 07/23/20 07/23/20 10:00 10:31 11:00 Temperature Pulse Rate 70 74 73 Pulse Rate [ From Monitor] Respiratory 18 24 24 Rate Blood Pressure 137/58 138/59 151/44 O2 Sat by Pulse 95 95 86 Oximetry 07/23/20 07/23/20 07/23/20 11:25 11:30 12:00 Temperature Pulse Rate 73 73 Pulse Rate [ 70 From Monitor] Respiratory 25 H 24 25 H Rate Blood Pressure 151/44 124/32 O2 Sat by Pulse 92 94 95 Oximetry - Laboratory Findings CBC and BMP: 07/19/20 01:05 07/19/20 01:05 Abnormal Lab Findings: Abnormal Labs 08/20/20 08/20/20 08/20/20 13:29 13:47 13:47 WBC RBC Hgb Hct MCHC RDW 15.3 H Lymph % (Auto) Mitchell % (Auto) Eos % (Auto) Lymph # Mitchell # Lymph # (Auto) Mitchell # (Auto) Seg Neutrophils % Seg Neuts % (Manual) Lymphocytes % (Manual) Seg Neutrophils # Seg Neutrophils # Man Lymphocytes # (Manual) Monocytes % (Manual) Eosinophils % (Manual) Monocytes # (Manual) Eosinophils # (Manual) D-Dimer Heparin Anti-Xa Level ABG pH POC ABG pCO2 POC ABG pO2 ABG pO2 ABG HCO3 ABG O2 Saturation ABG Base Excess ABG Hemoglobin ABG Oxyhemoglobin VBG pH ABG Sodium ABG Potassium ABG Glucose Oxyhemoglobin Sodium Potassium 6.6 H* Chloride 109.2 H Carbon Dioxide 17 L BUN 29 H Creatinine 1.3 H Glucose 265 H POC Glucose 248 H Lactic Acid Calcium 8.1 L Ferritin AST 63 H Alkaline Phosphatase Magnesium Lactate Dehydrogenase Total Creatine Kinase 301 H CK-MB (CK-2) 4.3 H C-Reactive Protein Total Protein 5.4 L Albumin 2.6 L Troponin T HDL Cholesterol Arterial Blood Glucose Urine WBC (Auto) Urine Creatinine Urine Total Protein Coronavirus (PCR) Crossmatch 05/28/20 05/28/20 05/28/20 13:47 13:47 14:46 WBC RBC Hgb Hct MCHC RDW Lymph % (Auto) Mitchell % (Auto) Eos % (Auto) Lymph # Mitchell # Lymph # (Auto) Mitchell # (Auto) Seg Neutrophils % Seg Neuts % (Manual) Lymphocytes % (Manual) Seg Neutrophils # Seg Neutrophils # Man Lymphocytes # (Manual) Monocytes % (Manual) Eosinophils % (Manual) Monocytes # (Manual) Eosinophils # (Manual) D-Dimer Heparin Anti-Xa Level ABG pH POC ABG pCO2 POC ABG pO2 ABG pO2 ABG HCO3 ABG O2 Saturation ABG Base Excess ABG Hemoglobin ABG Oxyhemoglobin VBG pH 7.152 L* ABG Sodium ABG Potassium ABG Glucose Oxyhemoglobin Sodium Potassium 7.2 H* Chloride Carbon Dioxide BUN Creatinine Glucose POC Glucose Lactic Acid 3.40 H* Calcium Ferritin AST Alkaline Phosphatase Magnesium Lactate Dehydrogenase Total Creatine Kinase CK-MB (CK-2) C-Reactive Protein Total Protein Albumin Troponin T HDL Cholesterol Arterial Blood Glucose Urine WBC (Auto) Urine Creatinine Urine Total Protein Coronavirus (PCR) Crossmatch 05/28/20 05/28/20 05/28/20 15:33 15:33 15:51 WBC RBC Hgb Hct MCHC RDW Lymph % (Auto) Mitchell % (Auto) Eos % (Auto) Lymph # Mitchell # Lymph # (Auto) Mitchell # (Auto) Seg Neutrophils % Seg Neuts % (Manual) Lymphocytes % (Manual) Seg Neutrophils # Seg Neutrophils # Man Lymphocytes # (Manual) Monocytes % (Manual) Eosinophils % (Manual) Monocytes # (Manual) Eosinophils # (Manual) D-Dimer 8780.43 H Heparin Anti-Xa Level ABG pH 7.284 L POC ABG pCO2 POC ABG pO2 ABG pO2 273.0 H ABG HCO3 ABG O2 Saturation 99.4 H ABG Base Excess -6.1 L ABG Hemoglobin 17.2 H ABG Oxyhemoglobin VBG pH ABG Sodium ABG Potassium ABG Glucose Oxyhemoglobin Sodium Potassium Chloride Carbon Dioxide BUN Creatinine Glucose 152 H POC Glucose Lactic Acid Calcium Ferritin AST Alkaline Phosphatase Magnesium Lactate Dehydrogenase 365 H Total Creatine Kinase CK-MB (CK-2) C-Reactive Protein Total Protein Albumin Troponin T HDL Cholesterol Arterial Blood Glucose Urine WBC (Auto) Urine Creatinine Urine Total Protein Coronavirus (PCR) Crossmatch 05/28/20 05/28/20 05/28/20 16:30 20:41 23:20 WBC RBC Hgb Hct MCHC RDW Lymph % (Auto) Mitchell % (Auto) Eos % (Auto) Lymph # Mitchell # Lymph # (Auto) Mitchell # (Auto) Seg Neutrophils % Seg Neuts % (Manual) Lymphocytes % (Manual) Seg Neutrophils # Seg Neutrophils # Man Lymphocytes # (Manual) Monocytes % (Manual) Eosinophils % (Manual) Monocytes # (Manual) Eosinophils # (Manual) D-Dimer Heparin Anti-Xa Level ABG pH POC ABG pCO2 POC ABG pO2 ABG pO2 ABG HCO3 ABG O2 Saturation ABG Base Excess ABG Hemoglobin ABG Oxyhemoglobin VBG pH ABG Sodium ABG Potassium ABG Glucose Oxyhemoglobin Sodium Potassium Chloride Carbon Dioxide BUN Creatinine Glucose POC Glucose 225 H 224 H Lactic Acid Calcium Ferritin AST Alkaline Phosphatase Magnesium Lactate Dehydrogenase Total Creatine Kinase CK-MB (CK-2) C-Reactive Protein Total Protein Albumin Troponin T HDL Cholesterol Arterial Blood Glucose Urine WBC (Auto) 17.0 H Urine Creatinine Urine Total Protein Coronavirus (PCR) Crossmatch 05/28/20 05/29/2020 Unknown 04:35 04:43 WBC RBC 3.48 L Hgb 9.8 L Hct 29.4 L MCHC RDW 16.0 H Lymph % (Auto) 7.4 L Mitchell % (Auto) Eos % (Auto) Lymph # 0.7 L Mitchell # Lymph # (Auto) Mitchell # (Auto) Seg Neutrophils % 89.1 H Seg Neuts % (Manual) Lymphocytes % (Manual) Seg Neutrophils # 8.1 H Seg Neutrophils # Man Lymphocytes # (Manual) Monocytes % (Manual) Eosinophils % (Manual) Monocytes # (Manual) Eosinophils # (Manual) D-Dimer Heparin Anti-Xa Level ABG pH POC ABG pCO2 POC ABG pO2 ABG pO2 ABG HCO3 19.3 L ABG O2 Saturation ABG Base Excess -4.5 L ABG Hemoglobin 9.7 L ABG Oxyhemoglobin VBG pH ABG Sodium ABG Potassium ABG Glucose Oxyhemoglobin Sodium Potassium Chloride Carbon Dioxide BUN Creatinine Glucose POC Glucose Lactic Acid Calcium Ferritin AST Alkaline Phosphatase Magnesium Lactate Dehydrogenase Total Creatine Kinase CK-MB (CK-2) C-Reactive Protein Total Protein Albumin Troponin T HDL Cholesterol Arterial Blood Glucose Urine WBC (Auto) Urine Creatinine Urine Total Protein Coronavirus (PCR) Positive A Crossmatch 05/29/20 05/29/20 05/29/20 04:43 15:10 17:17 WBC RBC Hgb 9.3 L Hct 28.7 L MCHC RDW Lymph % (Auto) Mitchell % (Auto) Eos % (Auto) Lymph # Mitchell # Lymph # (Auto) Mitchell # (Auto) Seg Neutrophils % Seg Neuts % (Manual) Lymphocytes % (Manual) Seg Neutrophils # Seg Neutrophils # Man Lymphocytes # (Manual) Monocytes % (Manual) Eosinophils % (Manual) Monocytes # (Manual) Eosinophils # (Manual) D-Dimer Heparin Anti-Xa Level ABG pH POC ABG pCO2 POC ABG pO2 ABG pO2 ABG HCO3 ABG O2 Saturation ABG Base Excess ABG Hemoglobin ABG Oxyhemoglobin VBG pH ABG Sodium ABG Potassium ABG Glucose Oxyhemoglobin Sodium Potassium Chloride 110.2 H Carbon Dioxide 18 L BUN 32 H Creatinine 1.4 H Glucose 180 H POC Glucose 147 H Lactic Acid Calcium Ferritin AST Alkaline Phosphatase Magnesium Lactate Dehydrogenase Total Creatine Kinase CK-MB (CK-2) C-Reactive Protein Total Protein Albumin Troponin T HDL Cholesterol Arterial Blood Glucose Urine WBC (Auto) Urine Creatinine Urine Total Protein Coronavirus (PCR) Crossmatch 05/30/20 05/30/20 05/30/20 00:08 00:12 04:15 WBC RBC Hgb Hct MCHC RDW Lymph % (Auto) Mitchell % (Auto) Eos % (Auto) Lymph # Mitchell # Lymph # (Auto) Mitchell # (Auto) Seg Neutrophils % Seg Neuts % (Manual) Lymphocytes % (Manual) Seg Neutrophils # Seg Neutrophils # Man Lymphocytes # (Manual) Monocytes % (Manual) Eosinophils % (Manual) Monocytes # (Manual) Eosinophils # (Manual) D-Dimer Heparin Anti-Xa Level 0.71 H ABG pH 7.460 H POC ABG pCO2 POC ABG pO2 ABG pO2 106.0 H ABG HCO3 18.9 L ABG O2 Saturation ABG Base Excess -4.4 L ABG Hemoglobin 6.8 L ABG Oxyhemoglobin VBG pH ABG Sodium ABG Potassium ABG Glucose Oxyhemoglobin Sodium Potassium Chloride Carbon Dioxide BUN Creatinine Glucose POC Glucose 195 H Lactic Acid Calcium Ferritin AST Alkaline Phosphatase Magnesium Lactate Dehydrogenase Total Creatine Kinase CK-MB (CK-2) C-Reactive Protein Total Protein Albumin Troponin T HDL Cholesterol Arterial Blood Glucose Urine WBC (Auto) Urine Creatinine Urine Total Protein Coronavirus (PCR) Crossmatch 05/30/20 05/30/20 05/30/20 06:07 08:37 12:33 WBC RBC Hgb Hct MCHC RDW Lymph % (Auto) Mitchell % (Auto) Eos % (Auto) Lymph # Mitchell # Lymph # (Auto) Mitchell # (Auto) Seg Neutrophils % Seg Neuts % (Manual) Lymphocytes % (Manual) Seg Neutrophils # Seg Neutrophils # Man Lymphocytes # (Manual) Monocytes % (Manual) Eosinophils % (Manual) Monocytes # (Manual) Eosinophils # (Manual) D-Dimer Heparin Anti-Xa Level 0.85 H ABG pH POC ABG pCO2 POC ABG pO2 ABG pO2 ABG HCO3 ABG O2 Saturation ABG Base Excess ABG Hemoglobin ABG Oxyhemoglobin VBG pH ABG Sodium ABG Potassium ABG Glucose Oxyhemoglobin Sodium Potassium Chloride Carbon Dioxide BUN Creatinine Glucose POC Glucose 182 H 187 H Lactic Acid Calcium Ferritin AST Alkaline Phosphatase Magnesium Lactate Dehydrogenase Total Creatine Kinase CK-MB (CK-2) C-Reactive Protein Total Protein Albumin Troponin T HDL Cholesterol Arterial Blood Glucose Urine WBC (Auto) Urine Creatinine Urine Total Protein Coronavirus (PCR) Crossmatch 05/30/20 05/30/20 05/30/20 15:58 17:57 23:36 WBC RBC Hgb Hct MCHC RDW Lymph % (Auto) Mitchell % (Auto) Eos % (Auto) Lymph # Mitchell # Lymph # (Auto) Mitchell # (Auto) Seg Neutrophils % Seg Neuts % (Manual) Lymphocytes % (Manual) Seg Neutrophils # Seg Neutrophils # Man Lymphocytes # (Manual) Monocytes % (Manual) Eosinophils % (Manual) Monocytes # (Manual) Eosinophils # (Manual) D-Dimer Heparin Anti-Xa Level 1.03 H ABG pH POC ABG pCO2 POC ABG pO2 ABG pO2 ABG HCO3 ABG O2 Saturation ABG Base Excess ABG Hemoglobin ABG Oxyhemoglobin VBG pH ABG Sodium ABG Potassium ABG Glucose Oxyhemoglobin Sodium Potassium Chloride Carbon Dioxide BUN Creatinine Glucose POC Glucose 208 H 185 H Lactic Acid Calcium Ferritin AST Alkaline Phosphatase Magnesium Lactate Dehydrogenase Total Creatine Kinase CK-MB (CK-2) C-Reactive Protein Total Protein Albumin Troponin T HDL Cholesterol Arterial Blood Glucose Urine WBC (Auto) Urine Creatinine Urine Total Protein Coronavirus (PCR) Crossmatch 05/31/20 05/31/20 05/31/20 02:16 03:55 06:16 WBC RBC Hgb 9.2 L Hct 27.5 L MCHC RDW Lymph % (Auto) Mitchell % (Auto) Eos % (Auto) Lymph # Mitchell # Lymph # (Auto) Mitchell # (Auto) Seg Neutrophils % Seg Neuts % (Manual) Lymphocytes % (Manual) Seg Neutrophils # Seg Neutrophils # Man Lymphocytes # (Manual) Monocytes % (Manual) Eosinophils % (Manual) Monocytes # (Manual) Eosinophils # (Manual) D-Dimer Heparin Anti-Xa Level ABG pH POC ABG pCO2 POC ABG pO2 ABG pO2 94.7 H ABG HCO3 18.6 L ABG O2 Saturation ABG Base Excess -5.5 L ABG Hemoglobin 7.9 L ABG Oxyhemoglobin VBG pH ABG Sodium ABG Potassium ABG Glucose Oxyhemoglobin Sodium Potassium Chloride Carbon Dioxide BUN Creatinine Glucose POC Glucose 160 H Lactic Acid Calcium Ferritin AST Alkaline Phosphatase Magnesium Lactate Dehydrogenase Total Creatine Kinase CK-MB (CK-2) C-Reactive Protein Total Protein Albumin Troponin T HDL Cholesterol Arterial Blood Glucose Urine WBC (Auto) Urine Creatinine Urine Total Protein Coronavirus (PCR) Crossmatch 05/31/20 05/31/20 05/31/20 12:20 13:03 18:13 WBC RBC Hgb Hct MCHC RDW Lymph % (Auto) Mitchell % (Auto) Eos % (Auto) Lymph # Mitchell # Lymph # (Auto) Mitchell # (Auto) Seg Neutrophils % Seg Neuts % (Manual) Lymphocytes % (Manual) Seg Neutrophils # Seg Neutrophils # Man Lymphocytes # (Manual) Monocytes % (Manual) Eosinophils % (Manual) Monocytes # (Manual) Eosinophils # (Manual) D-Dimer Heparin Anti-Xa Level ABG pH POC ABG pCO2 POC ABG pO2 ABG pO2 ABG HCO3 ABG O2 Saturation ABG Base Excess ABG Hemoglobin ABG Oxyhemoglobin VBG pH ABG Sodium ABG Potassium ABG Glucose Oxyhemoglobin Sodium Potassium Chloride Carbon Dioxide 18 L BUN 48 H Creatinine 1.6 H Glucose 115 H POC Glucose 128 H 159 H Lactic Acid Calcium 8.3 L Ferritin AST Alkaline Phosphatase Magnesium Lactate Dehydrogenase Total Creatine Kinase CK-MB (CK-2) C-Reactive Protein Total Protein 5.4 L Albumin 2.4 L Troponin T HDL Cholesterol Arterial Blood Glucose Urine WBC (Auto) Urine Creatinine Urine Total Protein Coronavirus (PCR) Crossmatch 05/31/20 06/01/20 06/01/20 23:51 04:00 05:48 WBC RBC Hgb Hct MCHC RDW Lymph % (Auto) Mitchell % (Auto) Eos % (Auto) Lymph # Mitchell # Lymph # (Auto) Mitchell # (Auto) Seg Neutrophils % Seg Neuts % (Manual) Lymphocytes % (Manual) Seg Neutrophils # Seg Neutrophils # Man Lymphocytes # (Manual) Monocytes % (Manual) Eosinophils % (Manual) Monocytes # (Manual) Eosinophils # (Manual) D-Dimer Heparin Anti-Xa Level ABG pH POC ABG pCO2 POC ABG pO2 ABG pO2 109.8 H ABG HCO3 18.8 L ABG O2 Saturation ABG Base Excess -5.9 L ABG Hemoglobin 7.8 L ABG Oxyhemoglobin VBG pH ABG Sodium ABG Potassium ABG Glucose Oxyhemoglobin Sodium Potassium Chloride Carbon Dioxide BUN Creatinine Glucose POC Glucose 171 H 133 H Lactic Acid Calcium Ferritin AST Alkaline Phosphatase Magnesium Lactate Dehydrogenase Total Creatine Kinase CK-MB (CK-2) C-Reactive Protein Total Protein Albumin Troponin T HDL Cholesterol Arterial Blood Glucose Urine WBC (Auto) Urine Creatinine Urine Total Protein Coronavirus (PCR) Crossmatch 06/01/20 06/01/20 06/02/20 12:28 17:29 00:08 WBC RBC Hgb Hct MCHC RDW Lymph % (Auto) Mitchell % (Auto) Eos % (Auto) Lymph # Mitchell # Lymph # (Auto) Mitchell # (Auto) Seg Neutrophils % Seg Neuts % (Manual) Lymphocytes % (Manual) Seg Neutrophils # Seg Neutrophils # Man Lymphocytes # (Manual) Monocytes % (Manual) Eosinophils % (Manual) Monocytes # (Manual) Eosinophils # (Manual) D-Dimer Heparin Anti-Xa Level ABG pH POC ABG pCO2 POC ABG pO2 ABG pO2 ABG HCO3 ABG O2 Saturation ABG Base Excess ABG Hemoglobin ABG Oxyhemoglobin VBG pH ABG Sodium ABG Potassium ABG Glucose Oxyhemoglobin Sodium Potassium Chloride Carbon Dioxide BUN Creatinine Glucose POC Glucose 199 H 209 H 162 H Lactic Acid Calcium Ferritin AST Alkaline Phosphatase Magnesium Lactate Dehydrogenase Total Creatine Kinase CK-MB (CK-2) C-Reactive Protein Total Protein Albumin Troponin T HDL Cholesterol Arterial Blood Glucose Urine WBC (Auto) Urine Creatinine Urine Total Protein Coronavirus (PCR) Crossmatch 06/02/20 06/02/20 06/02/20 04:20 04:20 04:44 WBC RBC Hgb 10.0 L Hct MCHC RDW Lymph % (Auto) Mitchell % (Auto) Eos % (Auto) Lymph # Mitchell # Lymph # (Auto) Mitchell # (Auto) Seg Neutrophils % Seg Neuts % (Manual) Lymphocytes % (Manual) Seg Neutrophils # Seg Neutrophils # Man Lymphocytes # (Manual) Monocytes % (Manual) Eosinophils % (Manual) Monocytes # (Manual) Eosinophils # (Manual) D-Dimer Heparin Anti-Xa Level 0.10 L ABG pH POC ABG pCO2 POC ABG pO2 ABG pO2 150.6 H ABG HCO3 ABG O2 Saturation ABG Base Excess -4.1 L ABG Hemoglobin 11.8 L ABG Oxyhemoglobin VBG pH ABG Sodium ABG Potassium ABG Glucose Oxyhemoglobin Sodium Potassium Chloride Carbon Dioxide BUN Creatinine Glucose POC Glucose Lactic Acid Calcium Ferritin AST Alkaline Phosphatase Magnesium Lactate Dehydrogenase Total Creatine Kinase CK-MB (CK-2) C-Reactive Protein Total Protein Albumin Troponin T HDL Cholesterol Arterial Blood Glucose Urine WBC (Auto) Urine Creatinine Urine Total Protein Coronavirus (PCR) Crossmatch 06/02/20 06/02/20 06/02/20 05:53 12:04 13:49 WBC RBC Hgb Hct MCHC RDW Lymph % (Auto) Mitchell % (Auto) Eos % (Auto) Lymph # Mitchell # Lymph # (Auto) Mitchell # (Auto) Seg Neutrophils % Seg Neuts % (Manual) Lymphocytes % (Manual) Seg Neutrophils # Seg Neutrophils # Man Lymphocytes # (Manual) Monocytes % (Manual) Eosinophils % (Manual) Monocytes # (Manual) Eosinophils # (Manual) D-Dimer Heparin Anti-Xa Level 0.28 L ABG pH POC ABG pCO2 POC ABG pO2 ABG pO2 ABG HCO3 ABG O2 Saturation ABG Base Excess ABG Hemoglobin ABG Oxyhemoglobin VBG pH ABG Sodium ABG Potassium ABG Glucose Oxyhemoglobin Sodium Potassium Chloride Carbon Dioxide BUN Creatinine Glucose POC Glucose 149 H 220 H Lactic Acid Calcium Ferritin AST Alkaline Phosphatase Magnesium Lactate Dehydrogenase Total Creatine Kinase CK-MB (CK-2) C-Reactive Protein Total Protein Albumin Troponin T HDL Cholesterol Arterial Blood Glucose Urine WBC (Auto) Urine Creatinine Urine Total Protein Coronavirus (PCR) Crossmatch 06/02/20 06/02/20 06/03/20 13:49 18:31 00:42 WBC RBC Hgb Hct MCHC RDW Lymph % (Auto) Mitchell % (Auto) Eos % (Auto) Lymph # Mitchell # Lymph # (Auto) Mitchell # (Auto) Seg Neutrophils % Seg Neuts % (Manual) Lymphocytes % (Manual) Seg Neutrophils # Seg Neutrophils # Man Lymphocytes # (Manual) Monocytes % (Manual) Eosinophils % (Manual) Monocytes # (Manual) Eosinophils # (Manual) D-Dimer 769.68 H Heparin Anti-Xa Level ABG pH POC ABG pCO2 POC ABG pO2 ABG pO2 ABG HCO3 ABG O2 Saturation ABG Base Excess ABG Hemoglobin ABG Oxyhemoglobin VBG pH ABG Sodium ABG Potassium ABG Glucose Oxyhemoglobin Sodium Potassium Chloride Carbon Dioxide BUN Creatinine Glucose POC Glucose 225 H 212 H Lactic Acid Calcium Ferritin AST Alkaline Phosphatase Magnesium Lactate Dehydrogenase Total Creatine Kinase CK-MB (CK-2) C-Reactive Protein Total Protein Albumin Troponin T HDL Cholesterol Arterial Blood Glucose Urine WBC (Auto) Urine Creatinine Urine Total Protein Coronavirus (PCR) Crossmatch 06/03/20 06/03/20 06/03/20 05:16 05:16 05:25 WBC 11.4 H RBC Hgb Hct MCHC RDW 16.4 H Lymph % (Auto) Mitchell % (Auto) Eos % (Auto) Lymph # Mitchell # Lymph # (Auto) Mitchell # (Auto) Seg Neutrophils % Seg Neuts % (Manual) Lymphocytes % (Manual) Seg Neutrophils # Seg Neutrophils # Man Lymphocytes # (Manual) Monocytes % (Manual) Eosinophils % (Manual) Monocytes # (Manual) Eosinophils # (Manual) D-Dimer Heparin Anti-Xa Level ABG pH POC ABG pCO2 POC ABG pO2 ABG pO2 160.9 H ABG HCO3 19.4 L ABG O2 Saturation ABG Base Excess -4.9 L ABG Hemoglobin 7.0 L ABG Oxyhemoglobin VBG pH ABG Sodium ABG Potassium ABG Glucose Oxyhemoglobin Sodium Potassium Chloride Carbon Dioxide 18 L BUN 65 H Creatinine 2.0 H Glucose 175 H POC Glucose Lactic Acid Calcium 8.0 L Ferritin AST Alkaline Phosphatase Magnesium Lactate Dehydrogenase Total Creatine Kinase CK-MB (CK-2) C-Reactive Protein Total Protein 5.5 L Albumin 2.2 L Troponin T HDL Cholesterol Arterial Blood Glucose Urine WBC (Auto) Urine Creatinine Urine Total Protein Coronavirus (PCR) Crossmatch 06/03/20 06/03/20 06/03/20 06:07 11:58 18:24 WBC RBC Hgb Hct MCHC RDW Lymph % (Auto) Mitchell % (Auto) Eos % (Auto) Lymph # Mitchell # Lymph # (Auto) Mitchell # (Auto) Seg Neutrophils % Seg Neuts % (Manual) Lymphocytes % (Manual) Seg Neutrophils # Seg Neutrophils # Man Lymphocytes # (Manual) Monocytes % (Manual) Eosinophils % (Manual) Monocytes # (Manual) Eosinophils # (Manual) D-Dimer Heparin Anti-Xa Level ABG pH POC ABG pCO2 POC ABG pO2 ABG pO2 ABG HCO3 ABG O2 Saturation ABG Base Excess ABG Hemoglobin ABG Oxyhemoglobin VBG pH ABG Sodium ABG Potassium ABG Glucose Oxyhemoglobin Sodium Potassium Chloride Carbon Dioxide BUN Creatinine Glucose POC Glucose 177 H 163 H 211 H Lactic Acid Calcium Ferritin AST Alkaline Phosphatase Magnesium Lactate Dehydrogenase Total Creatine Kinase CK-MB (CK-2) C-Reactive Protein Total Protein Albumin Troponin T HDL Cholesterol Arterial Blood Glucose Urine WBC (Auto) Urine Creatinine Urine Total Protein Coronavirus (PCR) Crossmatch 06/03/20 06/03/20 06/04/20 21:50 Unknown 00:26 WBC RBC Hgb Hct MCHC RDW Lymph % (Auto) Mitchell % (Auto) Eos % (Auto) Lymph # Mitchell # Lymph # (Auto) Mitchell # (Auto) Seg Neutrophils % Seg Neuts % (Manual) Lymphocytes % (Manual) Seg Neutrophils # Seg Neutrophils # Man Lymphocytes # (Manual) Monocytes % (Manual) Eosinophils % (Manual) Monocytes # (Manual) Eosinophils # (Manual) D-Dimer Heparin Anti-Xa Level ABG pH POC ABG pCO2 POC ABG pO2 ABG pO2 ABG HCO3 ABG O2 Saturation ABG Base Excess ABG Hemoglobin ABG Oxyhemoglobin VBG pH ABG Sodium ABG Potassium ABG Glucose Oxyhemoglobin Sodium 135 L Potassium Chloride Carbon Dioxide 18 L BUN Creatinine Glucose POC Glucose 241 H Lactic Acid Calcium Ferritin AST Alkaline Phosphatase Magnesium Lactate Dehydrogenase Total Creatine Kinase CK-MB (CK-2) C-Reactive Protein Total Protein Albumin Troponin T HDL Cholesterol Arterial Blood Glucose Urine WBC (Auto) 11.0 H Urine Creatinine Urine Total Protein Coronavirus (PCR) Crossmatch 06/04/20 06/04/20 06/04/20 03:35 04:19 04:19 WBC RBC 3.15 L Hgb 8.9 L Hct 26.8 L D MCHC RDW 15.9 H Lymph % (Auto) 6.0 L Mitchell % (Auto) Eos % (Auto) Lymph # 0.6 L Mitchell # Lymph # (Auto) Mitchell # (Auto) Seg Neutrophils % 86.6 H Seg Neuts % (Manual) Lymphocytes % (Manual) Seg Neutrophils # 9.1 H Seg Neutrophils # Man Lymphocytes # (Manual) Monocytes % (Manual) Eosinophils % (Manual) Monocytes # (Manual) Eosinophils # (Manual) D-Dimer Heparin Anti-Xa Level ABG pH 7.331 L POC ABG pCO2 POC ABG pO2 ABG pO2 ABG HCO3 ABG O2 Saturation ABG Base Excess -4.7 L ABG Hemoglobin 11.0 L ABG Oxyhemoglobin VBG pH ABG Sodium ABG Potassium ABG Glucose Oxyhemoglobin 93.9 L Sodium 136 L Potassium Chloride Carbon Dioxide 20 L BUN 73 H Creatinine 2.0 H Glucose 192 H POC Glucose Lactic Acid Calcium 8.0 L Ferritin AST Alkaline Phosphatase Magnesium Lactate Dehydrogenase 271 H Total Creatine Kinase CK-MB (CK-2) C-Reactive Protein 2.20 H Total Protein 5.0 L Albumin 2.0 L Troponin T HDL Cholesterol Arterial Blood Glucose Urine WBC (Auto) Urine Creatinine Urine Total Protein Coronavirus (PCR) Crossmatch 06/04/20 06/04/20 06/04/20 04:19 05:51 11:48 WBC RBC Hgb Hct MCHC RDW Lymph % (Auto) Mitchell % (Auto) Eos % (Auto) Lymph # Mitchell # Lymph # (Auto) Mitchell # (Auto) Seg Neutrophils % Seg Neuts % (Manual) Lymphocytes % (Manual) Seg Neutrophils # Seg Neutrophils # Man Lymphocytes # (Manual) Monocytes % (Manual) Eosinophils % (Manual) Monocytes # (Manual) Eosinophils # (Manual) D-Dimer 414.52 H Heparin Anti-Xa Level ABG pH POC ABG pCO2 POC ABG pO2 ABG pO2 ABG HCO3 ABG O2 Saturation ABG Base Excess ABG Hemoglobin ABG Oxyhemoglobin VBG pH ABG Sodium ABG Potassium ABG Glucose Oxyhemoglobin Sodium Potassium Chloride Carbon Dioxide BUN Creatinine Glucose POC Glucose 179 H 213 H Lactic Acid Calcium Ferritin AST Alkaline Phosphatase Magnesium Lactate Dehydrogenase Total Creatine Kinase CK-MB (CK-2) C-Reactive Protein Total Protein Albumin Troponin T HDL Cholesterol Arterial Blood Glucose Urine WBC (Auto) Urine Creatinine Urine Total Protein Coronavirus (PCR) Crossmatch 06/04/20 06/05/20 06/05/20 18:25 00:16 05:00 WBC RBC Hgb Hct MCHC RDW Lymph % (Auto) Mitchell % (Auto) Eos % (Auto) Lymph # Mitchell # Lymph # (Auto) Mitchell # (Auto) Seg Neutrophils % Seg Neuts % (Manual) Lymphocytes % (Manual) Seg Neutrophils # Seg Neutrophils # Man Lymphocytes # (Manual) Monocytes % (Manual) Eosinophils % (Manual) Monocytes # (Manual) Eosinophils # (Manual) D-Dimer Heparin Anti-Xa Level ABG pH 7.286 L POC ABG pCO2 POC ABG pO2 ABG pO2 96.2 H ABG HCO3 ABG O2 Saturation ABG Base Excess -6.3 L ABG Hemoglobin 8.8 L ABG Oxyhemoglobin VBG pH ABG Sodium ABG Potassium ABG Glucose Oxyhemoglobin 94.8 L Sodium Potassium Chloride Carbon Dioxide BUN Creatinine Glucose POC Glucose 238 H 183 H Lactic Acid Calcium Ferritin AST Alkaline Phosphatase Magnesium Lactate Dehydrogenase Total Creatine Kinase CK-MB (CK-2) C-Reactive Protein Total Protein Albumin Troponin T HDL Cholesterol Arterial Blood Glucose Urine WBC (Auto) Urine Creatinine Urine Total Protein Coronavirus (PCR) Crossmatch 06/05/20 06/05/20 06/05/20 05:39 07:25 07:25 WBC RBC 2.97 L Hgb 8.7 L Hct 25.7 L MCHC RDW 16.0 H Lymph % (Auto) 8.8 L Mitchell % (Auto) 13.3 H Eos % (Auto) Lymph # 0.8 L Mitchell # 1.3 H Lymph # (Auto) Mitchell # (Auto) Seg Neutrophils % 77.3 H Seg Neuts % (Manual) Lymphocytes % (Manual) Seg Neutrophils # Seg Neutrophils # Man Lymphocytes # (Manual) Monocytes % (Manual) Eosinophils % (Manual) Monocytes # (Manual) Eosinophils # (Manual) D-Dimer Heparin Anti-Xa Level ABG pH POC ABG pCO2 POC ABG pO2 ABG pO2 ABG HCO3 ABG O2 Saturation ABG Base Excess ABG Hemoglobin ABG Oxyhemoglobin VBG pH ABG Sodium ABG Potassium ABG Glucose Oxyhemoglobin Sodium 133 L Potassium Chloride Carbon Dioxide 17 L BUN 89 H Creatinine 2.8 H Glucose 176 H POC Glucose 149 H Lactic Acid Calcium 7.7 L Ferritin AST Alkaline Phosphatase Magnesium Lactate Dehydrogenase Total Creatine Kinase CK-MB (CK-2) C-Reactive Protein Total Protein 4.2 L Albumin 1.9 L Troponin T HDL Cholesterol Arterial Blood Glucose Urine WBC (Auto) Urine Creatinine Urine Total Protein Coronavirus (PCR) Crossmatch 06/05/20 06/05/20 06/05/20 07:25 12:05 15:41 WBC RBC Hgb Hct MCHC RDW Lymph % (Auto) Mitchell % (Auto) Eos % (Auto) Lymph # Mitchell # Lymph # (Auto) Mitchell # (Auto) Seg Neutrophils % Seg Neuts % (Manual) Lymphocytes % (Manual) Seg Neutrophils # Seg Neutrophils # Man Lymphocytes # (Manual) Monocytes % (Manual) Eosinophils % (Manual) Monocytes # (Manual) Eosinophils # (Manual) D-Dimer Heparin Anti-Xa Level 0.76 H 0.81 H ABG pH POC ABG pCO2 POC ABG pO2 ABG pO2 ABG HCO3 ABG O2 Saturation ABG Base Excess ABG Hemoglobin ABG Oxyhemoglobin VBG pH ABG Sodium ABG Potassium ABG Glucose Oxyhemoglobin Sodium Potassium Chloride Carbon Dioxide BUN Creatinine Glucose POC Glucose 198 H Lactic Acid Calcium Ferritin AST Alkaline Phosphatase Magnesium Lactate Dehydrogenase Total Creatine Kinase CK-MB (CK-2) C-Reactive Protein Total Protein Albumin Troponin T HDL Cholesterol Arterial Blood Glucose Urine WBC (Auto) Urine Creatinine Urine Total Protein Coronavirus (PCR) Crossmatch 06/05/20 06/05/20 06/06/20 18:08 23:25 04:00 WBC RBC Hgb Hct MCHC RDW Lymph % (Auto) Mitchell % (Auto) Eos % (Auto) Lymph # Mitchell # Lymph # (Auto) Mitchell # (Auto) Seg Neutrophils % Seg Neuts % (Manual) Lymphocytes % (Manual) Seg Neutrophils # Seg Neutrophils # Man Lymphocytes # (Manual) Monocytes % (Manual) Eosinophils % (Manual) Monocytes # (Manual) Eosinophils # (Manual) D-Dimer Heparin Anti-Xa Level ABG pH POC ABG pCO2 POC ABG pO2 ABG pO2 ABG HCO3 ABG O2 Saturation ABG Base Excess ABG Hemoglobin ABG Oxyhemoglobin VBG pH ABG Sodium ABG Potassium ABG Glucose Oxyhemoglobin Sodium Potassium Chloride Carbon Dioxide BUN Creatinine Glucose POC Glucose 223 H 169 H Lactic Acid Calcium Ferritin AST Alkaline Phosphatase Magnesium Lactate Dehydrogenase Total Creatine Kinase CK-MB (CK-2) C-Reactive Protein Total Protein Albumin Troponin T HDL Cholesterol Arterial Blood Glucose Urine WBC (Auto) 15.0 H Urine Creatinine Urine Total Protein Coronavirus (PCR) Crossmatch 06/06/20 06/06/20 06/06/20 04:00 05:33 05:38 WBC RBC 2.97 L Hgb 8.7 L Hct 26.8 L MCHC RDW 16.8 H Lymph % (Auto) Mitchell % (Auto) Eos % (Auto) Lymph # Mitchell # Lymph # (Auto) Mitchell # (Auto) Seg Neutrophils % Seg Neuts % (Manual) Lymphocytes % (Manual) Seg Neutrophils # Seg Neutrophils # Man Lymphocytes # (Manual) Monocytes % (Manual) Eosinophils % (Manual) Monocytes # (Manual) Eosinophils # (Manual) D-Dimer Heparin Anti-Xa Level ABG pH POC ABG pCO2 POC ABG pO2 ABG pO2 ABG HCO3 ABG O2 Saturation ABG Base Excess ABG Hemoglobin ABG Oxyhemoglobin VBG pH ABG Sodium ABG Potassium ABG Glucose Oxyhemoglobin Sodium Potassium Chloride Carbon Dioxide BUN Creatinine Glucose POC Glucose 186 H Lactic Acid Calcium Ferritin AST Alkaline Phosphatase Magnesium Lactate Dehydrogenase Total Creatine Kinase CK-MB (CK-2) C-Reactive Protein Total Protein Albumin Troponin T HDL Cholesterol Arterial Blood Glucose Urine WBC (Auto) Urine Creatinine 82.2 H Urine Total Protein 196 H Coronavirus (PCR) Crossmatch 06/06/20 06/06/20 06/06/20 05:38 12:25 17:03 WBC RBC Hgb Hct MCHC RDW Lymph % (Auto) Mitchell % (Auto) Eos % (Auto) Lymph # Mitchell # Lymph # (Auto) Mitchell # (Auto) Seg Neutrophils % Seg Neuts % (Manual) Lymphocytes % (Manual) Seg Neutrophils # Seg Neutrophils # Man Lymphocytes # (Manual) Monocytes % (Manual) Eosinophils % (Manual) Monocytes # (Manual) Eosinophils # (Manual) D-Dimer Heparin Anti-Xa Level ABG pH POC ABG pCO2 POC ABG pO2 ABG pO2 ABG HCO3 ABG O2 Saturation ABG Base Excess ABG Hemoglobin ABG Oxyhemoglobin VBG pH ABG Sodium ABG Potassium ABG Glucose Oxyhemoglobin Sodium 134 L Potassium 5.2 H Chloride Carbon Dioxide 18 L BUN 97 H Creatinine 2.5 H Glucose 193 H POC Glucose 239 H 252 H Lactic Acid Calcium 7.5 L Ferritin AST Alkaline Phosphatase Magnesium Lactate Dehydrogenase Total Creatine Kinase CK-MB (CK-2) C-Reactive Protein Total Protein 4.1 L Albumin 1.9 L Troponin T HDL Cholesterol Arterial Blood Glucose Urine WBC (Auto) Urine Creatinine Urine Total Protein Coronavirus (PCR) Crossmatch 06/07/20 06/07/20 06/07/20 00:16 01:49 04:00 WBC RBC 2.91 L Hgb 8.4 L Hct 25.0 L MCHC RDW 16.1 H Lymph % (Auto) 5.7 L Mitchell % (Auto) 10.5 H Eos % (Auto) Lymph # 0.6 L Mitchell # 1.1 H Lymph # (Auto) Mitchell # (Auto) Seg Neutrophils % 83.6 H Seg Neuts % (Manual) Lymphocytes % (Manual) Seg Neutrophils # 9.1 H Seg Neutrophils # Man Lymphocytes # (Manual) Monocytes % (Manual) Eosinophils % (Manual) Monocytes # (Manual) Eosinophils # (Manual) D-Dimer Heparin Anti-Xa Level 0.26 L ABG pH POC ABG pCO2 POC ABG pO2 ABG pO2 ABG HCO3 ABG O2 Saturation ABG Base Excess ABG Hemoglobin ABG Oxyhemoglobin VBG pH ABG Sodium ABG Potassium ABG Glucose Oxyhemoglobin Sodium Potassium Chloride Carbon Dioxide BUN Creatinine Glucose POC Glucose 173 H Lactic Acid Calcium Ferritin AST Alkaline Phosphatase Magnesium Lactate Dehydrogenase Total Creatine Kinase CK-MB (CK-2) C-Reactive Protein Total Protein Albumin Troponin T HDL Cholesterol Arterial Blood Glucose Urine WBC (Auto) Urine Creatinine Urine Total Protein Coronavirus (PCR) Crossmatch 06/07/20 06/07/20 06/07/20 04:00 04:54 05:51 WBC RBC Hgb Hct MCHC RDW Lymph % (Auto) Mitchell % (Auto) Eos % (Auto) Lymph # Mitchell # Lymph # (Auto) Mitchell # (Auto) Seg Neutrophils % Seg Neuts % (Manual) Lymphocytes % (Manual) Seg Neutrophils # Seg Neutrophils # Man Lymphocytes # (Manual) Monocytes % (Manual) Eosinophils % (Manual) Monocytes # (Manual) Eosinophils # (Manual) D-Dimer Heparin Anti-Xa Level ABG pH 7.317 L POC ABG pCO2 POC ABG pO2 ABG pO2 71.4 L ABG HCO3 ABG O2 Saturation 94.3 L ABG Base Excess -4.8 L ABG Hemoglobin 7.1 L ABG Oxyhemoglobin VBG pH ABG Sodium ABG Potassium ABG Glucose Oxyhemoglobin 92.2 L Sodium 133 L Potassium Chloride Carbon Dioxide 18 L BUN 100 H Creatinine 2.5 H Glucose 158 H POC Glucose 168 H Lactic Acid Calcium 7.6 L Ferritin AST Alkaline Phosphatase Magnesium Lactate Dehydrogenase Total Creatine Kinase CK-MB (CK-2) C-Reactive Protein Total Protein 4.7 L Albumin 2.0 L Troponin T HDL Cholesterol Arterial Blood Glucose Urine WBC (Auto) Urine Creatinine Urine Total Protein Coronavirus (PCR) Crossmatch 06/07/20 06/07/20 06/07/20 12:03 17:17 20:10 WBC RBC Hgb Hct MCHC RDW Lymph % (Auto) Mitchell % (Auto) Eos % (Auto) Lymph # Mitchell # Lymph # (Auto) Mitchell # (Auto) Seg Neutrophils % Seg Neuts % (Manual) Lymphocytes % (Manual) Seg Neutrophils # Seg Neutrophils # Man Lymphocytes # (Manual) Monocytes % (Manual) Eosinophils % (Manual) Monocytes # (Manual) Eosinophils # (Manual) D-Dimer Heparin Anti-Xa Level 0.17 L ABG pH POC ABG pCO2 POC ABG pO2 ABG pO2 ABG HCO3 ABG O2 Saturation ABG Base Excess ABG Hemoglobin ABG Oxyhemoglobin VBG pH ABG Sodium ABG Potassium ABG Glucose Oxyhemoglobin Sodium Potassium Chloride Carbon Dioxide BUN Creatinine Glucose POC Glucose 276 H 281 H Lactic Acid Calcium Ferritin AST Alkaline Phosphatase Magnesium Lactate Dehydrogenase Total Creatine Kinase CK-MB (CK-2) C-Reactive Protein Total Protein Albumin Troponin T HDL Cholesterol Arterial Blood Glucose Urine WBC (Auto) Urine Creatinine Urine Total Protein Coronavirus (PCR) Crossmatch 06/08/20 06/08/20 06/08/20 00:02 04:47 04:47 WBC 16.4 H RBC 3.07 L Hgb 8.6 L Hct 26.5 L MCHC RDW 16.3 H Lymph % (Auto) Mitchell % (Auto) Eos % (Auto) Lymph # Mitchell # Lymph # (Auto) Mitchell # (Auto) Seg Neutrophils % Seg Neuts % (Manual) 90.0 H Lymphocytes % (Manual) 3.0 L Seg Neutrophils # Seg Neutrophils # Man 14.8 H Lymphocytes # (Manual) 0.5 L Monocytes % (Manual) Eosinophils % (Manual) Monocytes # (Manual) 1.1 H Eosinophils # (Manual) D-Dimer Heparin Anti-Xa Level ABG pH POC ABG pCO2 POC ABG pO2 ABG pO2 ABG HCO3 ABG O2 Saturation ABG Base Excess ABG Hemoglobin ABG Oxyhemoglobin VBG pH ABG Sodium ABG Potassium ABG Glucose Oxyhemoglobin Sodium 129 L Potassium Chloride 95.6 L Carbon Dioxide 17 L BUN 106 H Creatinine 2.5 H Glucose 213 H POC Glucose 242 H Lactic Acid Calcium 7.6 L Ferritin AST Alkaline Phosphatase Magnesium Lactate Dehydrogenase Total Creatine Kinase CK-MB (CK-2) C-Reactive Protein Total Protein 5.0 L Albumin 2.1 L Troponin T HDL Cholesterol Arterial Blood Glucose Urine WBC (Auto) Urine Creatinine Urine Total Protein Coronavirus (PCR) Crossmatch 06/08/20 06/08/20 06/08/20 05:40 11:55 17:54 WBC RBC Hgb Hct MCHC RDW Lymph % (Auto) Mitchell % (Auto) Eos % (Auto) Lymph # Mitchell # Lymph # (Auto) Mitchell # (Auto) Seg Neutrophils % Seg Neuts % (Manual) Lymphocytes % (Manual) Seg Neutrophils # Seg Neutrophils # Man Lymphocytes # (Manual) Monocytes % (Manual) Eosinophils % (Manual) Monocytes # (Manual) Eosinophils # (Manual) D-Dimer Heparin Anti-Xa Level ABG pH POC ABG pCO2 POC ABG pO2 ABG pO2 ABG HCO3 ABG O2 Saturation ABG Base Excess ABG Hemoglobin ABG Oxyhemoglobin VBG pH ABG Sodium ABG Potassium ABG Glucose Oxyhemoglobin Sodium Potassium Chloride Carbon Dioxide BUN Creatinine Glucose POC Glucose 221 H 218 H 163 H Lactic Acid Calcium Ferritin AST Alkaline Phosphatase Magnesium Lactate Dehydrogenase Total Creatine Kinase CK-MB (CK-2) C-Reactive Protein Total Protein Albumin Troponin T HDL Cholesterol Arterial Blood Glucose Urine WBC (Auto) Urine Creatinine Urine Total Protein Coronavirus (PCR) Crossmatch 06/08/20 06/09/20 06/09/20 22:01 00:09 05:16 WBC 19.0 H RBC 3.35 L Hgb 9.2 L Hct 28.5 L MCHC RDW 16.3 H Lymph % (Auto) Mitchell % (Auto) Eos % (Auto) Lymph # Mitchell # Lymph # (Auto) Mitchell # (Auto) Seg Neutrophils % Seg Neuts % (Manual) 85.0 H Lymphocytes % (Manual) 7.0 L Seg Neutrophils # Seg Neutrophils # Man 16.2 H Lymphocytes # (Manual) Monocytes % (Manual) Eosinophils % (Manual) Monocytes # (Manual) 1.3 H Eosinophils # (Manual) D-Dimer Heparin Anti-Xa Level ABG pH POC ABG pCO2 POC ABG pO2 ABG pO2 ABG HCO3 ABG O2 Saturation ABG Base Excess ABG Hemoglobin ABG Oxyhemoglobin VBG pH ABG Sodium ABG Potassium ABG Glucose Oxyhemoglobin Sodium Potassium Chloride Carbon Dioxide BUN Creatinine Glucose POC Glucose 182 H 150 H Lactic Acid Calcium Ferritin AST Alkaline Phosphatase Magnesium Lactate Dehydrogenase Total Creatine Kinase CK-MB (CK-2) C-Reactive Protein Total Protein Albumin Troponin T HDL Cholesterol Arterial Blood Glucose Urine WBC (Auto) Urine Creatinine Urine Total Protein Coronavirus (PCR) Crossmatch 06/09/20 06/09/20 06/09/20 05:16 05:24 11:29 WBC RBC Hgb Hct MCHC RDW Lymph % (Auto) Mitchell % (Auto) Eos % (Auto) Lymph # Mitchell # Lymph # (Auto) Mitchell # (Auto) Seg Neutrophils % Seg Neuts % (Manual) Lymphocytes % (Manual) Seg Neutrophils # Seg Neutrophils # Man Lymphocytes # (Manual) Monocytes % (Manual) Eosinophils % (Manual) Monocytes # (Manual) Eosinophils # (Manual) D-Dimer Heparin Anti-Xa Level ABG pH POC ABG pCO2 POC ABG pO2 ABG pO2 ABG HCO3 ABG O2 Saturation ABG Base Excess ABG Hemoglobin ABG Oxyhemoglobin VBG pH ABG Sodium ABG Potassium ABG Glucose Oxyhemoglobin Sodium 133 L Potassium Chloride Carbon Dioxide 19 L BUN 109 H Creatinine 2.1 H Glucose 133 H POC Glucose 128 H 119 H Lactic Acid Calcium 7.7 L Ferritin AST Alkaline Phosphatase < 5 L Magnesium Lactate Dehydrogenase Total Creatine Kinase CK-MB (CK-2) C-Reactive Protein Total Protein 4.6 L Albumin < 0.2 L Troponin T HDL Cholesterol Arterial Blood Glucose Urine WBC (Auto) Urine Creatinine Urine Total Protein Coronavirus (PCR) Crossmatch 06/09/20 06/10/20 06/10/20 17:32 00:00 05:49 WBC RBC Hgb Hct MCHC RDW Lymph % (Auto) Mitchell % (Auto) Eos % (Auto) Lymph # Mitchell # Lymph # (Auto) Mitchell # (Auto) Seg Neutrophils % Seg Neuts % (Manual) Lymphocytes % (Manual) Seg Neutrophils # Seg Neutrophils # Man Lymphocytes # (Manual) Monocytes % (Manual) Eosinophils % (Manual) Monocytes # (Manual) Eosinophils # (Manual) D-Dimer Heparin Anti-Xa Level 0.19 L ABG pH POC ABG pCO2 POC ABG pO2 ABG pO2 ABG HCO3 ABG O2 Saturation ABG Base Excess ABG Hemoglobin ABG Oxyhemoglobin VBG pH ABG Sodium ABG Potassium ABG Glucose Oxyhemoglobin Sodium Potassium Chloride Carbon Dioxide BUN Creatinine Glucose POC Glucose 106 H 117 H Lactic Acid Calcium Ferritin AST Alkaline Phosphatase Magnesium Lactate Dehydrogenase Total Creatine Kinase CK-MB (CK-2) C-Reactive Protein Total Protein Albumin Troponin T HDL Cholesterol Arterial Blood Glucose Urine WBC (Auto) Urine Creatinine Urine Total Protein Coronavirus (PCR) Crossmatch 06/10/20 06/10/20 06/10/20 05:54 07:40 11:40 WBC RBC Hgb Hct MCHC RDW Lymph % (Auto) Mitchell % (Auto) Eos % (Auto) Lymph # Mitchell # Lymph # (Auto) Mitchell # (Auto) Seg Neutrophils % Seg Neuts % (Manual) Lymphocytes % (Manual) Seg Neutrophils # Seg Neutrophils # Man Lymphocytes # (Manual) Monocytes % (Manual) Eosinophils % (Manual) Monocytes # (Manual) Eosinophils # (Manual) D-Dimer Heparin Anti-Xa Level ABG pH POC ABG pCO2 POC ABG pO2 ABG pO2 ABG HCO3 ABG O2 Saturation ABG Base Excess ABG Hemoglobin ABG Oxyhemoglobin VBG pH ABG Sodium ABG Potassium ABG Glucose Oxyhemoglobin Sodium 146 H D Potassium Chloride Carbon Dioxide 20 L BUN 99 H Creatinine 1.9 H Glucose 121 H POC Glucose 127 H 138 H Lactic Acid Calcium 8.2 L Ferritin AST Alkaline Phosphatase Magnesium Lactate Dehydrogenase Total Creatine Kinase CK-MB (CK-2) C-Reactive Protein Total Protein Albumin Troponin T HDL Cholesterol Arterial Blood Glucose Urine WBC (Auto) Urine Creatinine Urine Total Protein Coronavirus (PCR) Crossmatch 06/10/20 06/10/20 06/10/20 14:44 17:31 23:22 WBC RBC Hgb Hct MCHC RDW Lymph % (Auto) Mitchell % (Auto) Eos % (Auto) Lymph # Mitchell # Lymph # (Auto) Mitchell # (Auto) Seg Neutrophils % Seg Neuts % (Manual) Lymphocytes % (Manual) Seg Neutrophils # Seg Neutrophils # Man Lymphocytes # (Manual) Monocytes % (Manual) Eosinophils % (Manual) Monocytes # (Manual) Eosinophils # (Manual) D-Dimer Heparin Anti-Xa Level 0.17 L ABG pH POC ABG pCO2 POC ABG pO2 ABG pO2 ABG HCO3 ABG O2 Saturation ABG Base Excess ABG Hemoglobin ABG Oxyhemoglobin VBG pH ABG Sodium ABG Potassium ABG Glucose Oxyhemoglobin Sodium Potassium Chloride Carbon Dioxide BUN Creatinine Glucose POC Glucose 128 H 114 H Lactic Acid Calcium Ferritin AST Alkaline Phosphatase Magnesium Lactate Dehydrogenase Total Creatine Kinase CK-MB (CK-2) C-Reactive Protein Total Protein Albumin Troponin T HDL Cholesterol Arterial Blood Glucose Urine WBC (Auto) Urine Creatinine Urine Total Protein Coronavirus (PCR) Crossmatch 06/11/20 06/11/20 06/11/20 00:22 03:45 03:45 WBC 14.6 H RBC 2.77 L Hgb 7.9 L Hct 24.3 L MCHC RDW 16.8 H Lymph % (Auto) 6.6 L Mitchell % (Auto) 8.5 H Eos % (Auto) Lymph # 1.0 L Mitchell # 1.2 H Lymph # (Auto) Mitchell # (Auto) Seg Neutrophils % 82.9 H Seg Neuts % (Manual) Lymphocytes % (Manual) Seg Neutrophils # 12.1 H Seg Neutrophils # Man Lymphocytes # (Manual) Monocytes % (Manual) Eosinophils % (Manual) Monocytes # (Manual) Eosinophils # (Manual) D-Dimer Heparin Anti-Xa Level 0.24 L ABG pH POC ABG pCO2 POC ABG pO2 ABG pO2 ABG HCO3 ABG O2 Saturation ABG Base Excess ABG Hemoglobin ABG Oxyhemoglobin VBG pH ABG Sodium ABG Potassium ABG Glucose Oxyhemoglobin Sodium Potassium Chloride Carbon Dioxide 20 L BUN 88 H Creatinine 1.5 H Glucose 111 H POC Glucose Lactic Acid Calcium 8.2 L Ferritin AST Alkaline Phosphatase Magnesium Lactate Dehydrogenase Total Creatine Kinase CK-MB (CK-2) C-Reactive Protein Total Protein Albumin Troponin T HDL Cholesterol Arterial Blood Glucose Urine WBC (Auto) Urine Creatinine Urine Total Protein Coronavirus (PCR) Crossmatch 06/11/20 06/11/20 06/11/20 06:03 10:22 11:11 WBC RBC Hgb Hct MCHC RDW Lymph % (Auto) Mitchell % (Auto) Eos % (Auto) Lymph # Mitchell # Lymph # (Auto) Mitchell # (Auto) Seg Neutrophils % Seg Neuts % (Manual) Lymphocytes % (Manual) Seg Neutrophils # Seg Neutrophils # Man Lymphocytes # (Manual) Monocytes % (Manual) Eosinophils % (Manual) Monocytes # (Manual) Eosinophils # (Manual) D-Dimer Heparin Anti-Xa Level 0.26 L ABG pH POC ABG pCO2 POC ABG pO2 ABG pO2 ABG HCO3 ABG O2 Saturation ABG Base Excess ABG Hemoglobin 9.6 L ABG Oxyhemoglobin VBG pH ABG Sodium ABG Potassium ABG Glucose Oxyhemoglobin Sodium Potassium Chloride Carbon Dioxide BUN Creatinine Glucose POC Glucose 114 H Lactic Acid Calcium Ferritin AST Alkaline Phosphatase Magnesium Lactate Dehydrogenase Total Creatine Kinase CK-MB (CK-2) C-Reactive Protein Total Protein Albumin Troponin T HDL Cholesterol Arterial Blood Glucose Urine WBC (Auto) Urine Creatinine Urine Total Protein Coronavirus (PCR) Crossmatch 06/11/20 06/11/20 06/12/20 12:24 17:24 00:21 WBC RBC Hgb Hct MCHC RDW Lymph % (Auto) Mitchell % (Auto) Eos % (Auto) Lymph # Mitchell # Lymph # (Auto) Mitchell # (Auto) Seg Neutrophils % Seg Neuts % (Manual) Lymphocytes % (Manual) Seg Neutrophils # Seg Neutrophils # Man Lymphocytes # (Manual) Monocytes % (Manual) Eosinophils % (Manual) Monocytes # (Manual) Eosinophils # (Manual) D-Dimer Heparin Anti-Xa Level ABG pH POC ABG pCO2 POC ABG pO2 ABG pO2 ABG HCO3 ABG O2 Saturation ABG Base Excess ABG Hemoglobin ABG Oxyhemoglobin VBG pH ABG Sodium ABG Potassium ABG Glucose Oxyhemoglobin Sodium Potassium Chloride Carbon Dioxide BUN Creatinine Glucose POC Glucose 119 H 126 H 117 H Lactic Acid Calcium Ferritin AST Alkaline Phosphatase Magnesium Lactate Dehydrogenase Total Creatine Kinase CK-MB (CK-2) C-Reactive Protein Total Protein Albumin Troponin T HDL Cholesterol Arterial Blood Glucose Urine WBC (Auto) Urine Creatinine Urine Total Protein Coronavirus (PCR) Crossmatch 06/12/20 06/12/20 06/12/20 02:46 02:46 05:46 WBC 13.2 H RBC 2.83 L Hgb 8.3 L Hct 24.3 L MCHC RDW 16.6 H Lymph % (Auto) 6.2 L [place] % (Auto) 9.5 H Eos % (Auto) Lymph # 0.8 L Mitchell # 1.3 H Lymph # (Auto) Mitchell # (Auto) Seg Neutrophils % 81.9 H Seg Neuts % (Manual) Lymphocytes % (Manual) Seg Neutrophils # 10.9 H Seg Neutrophils # Man Lymphocytes # (Manual) Monocytes % (Manual) Eosinophils % (Manual) Monocytes # (Manual) Eosinophils # (Manual) D-Dimer Heparin Anti-Xa Level ABG pH POC ABG pCO2 POC ABG pO2 ABG pO2 ABG HCO3 ABG O2 Saturation ABG Base Excess ABG Hemoglobin ABG Oxyhemoglobin VBG pH ABG Sodium ABG Potassium ABG Glucose Oxyhemoglobin Sodium Potassium 3.5 L Chloride Carbon Dioxide BUN 77 H Creatinine 1.3 H Glucose POC Glucose 132 H Lactic Acid Calcium 8.3 L Ferritin AST Alkaline Phosphatase Magnesium Lactate Dehydrogenase Total Creatine Kinase CK-MB (CK-2) C-Reactive Protein Total Protein Albumin Troponin T HDL Cholesterol Arterial Blood Glucose Urine WBC (Auto) Urine Creatinine Urine Total Protein Coronavirus (PCR) Crossmatch 06/12/20 06/12/20 06/12/20 09:20 12:16 17:48 WBC RBC Hgb Hct MCHC RDW Lymph % (Auto) Mitchell % (Auto) Eos % (Auto) Lymph # Mitchell # Lymph # (Auto) Mitchell # (Auto) Seg Neutrophils % Seg Neuts % (Manual) Lymphocytes % (Manual) Seg Neutrophils # Seg Neutrophils # Man Lymphocytes # (Manual) Monocytes % (Manual) Eosinophils % (Manual) Monocytes # (Manual) Eosinophils # (Manual) D-Dimer Heparin Anti-Xa Level ABG pH POC ABG pCO2 POC ABG pO2 ABG pO2 91.1 H ABG HCO3 ABG O2 Saturation ABG Base Excess ABG Hemoglobin ABG Oxyhemoglobin VBG pH ABG Sodium ABG Potassium ABG Glucose Oxyhemoglobin 94.8 L Sodium Potassium Chloride Carbon Dioxide BUN Creatinine Glucose POC Glucose 167 H 182 H Lactic Acid Calcium Ferritin AST Alkaline Phosphatase Magnesium Lactate Dehydrogenase Total Creatine Kinase CK-MB (CK-2) C-Reactive Protein Total Protein Albumin Troponin T HDL Cholesterol Arterial Blood Glucose Urine WBC (Auto) Urine Creatinine Urine Total Protein Coronavirus (PCR) Crossmatch 06/13/20 06/13/20 06/13/20 00:08 05:37 09:09 WBC RBC Hgb Hct MCHC RDW Lymph % (Auto) Mitchell % (Auto) Eos % (Auto) Lymph # Mitchell # Lymph # (Auto) Mitchell # (Auto) Seg Neutrophils % Seg Neuts % (Manual) Lymphocytes % (Manual) Seg Neutrophils # Seg Neutrophils # Man Lymphocytes # (Manual) Monocytes % (Manual) Eosinophils % (Manual) Monocytes # (Manual) Eosinophils # (Manual) D-Dimer Heparin Anti-Xa Level 0.86 H ABG pH POC ABG pCO2 POC ABG pO2 ABG pO2 ABG HCO3 ABG O2 Saturation ABG Base Excess ABG Hemoglobin ABG Oxyhemoglobin VBG pH ABG Sodium ABG Potassium ABG Glucose Oxyhemoglobin Sodium Potassium Chloride Carbon Dioxide BUN Creatinine Glucose POC Glucose 142 H 119 H Lactic Acid Calcium Ferritin AST Alkaline Phosphatase Magnesium Lactate Dehydrogenase Total Creatine Kinase CK-MB (CK-2) C-Reactive Protein Total Protein Albumin Troponin T HDL Cholesterol Arterial Blood Glucose Urine WBC (Auto) Urine Creatinine Urine Total Protein Coronavirus (PCR) Crossmatch 06/13/20 06/13/20 06/13/20 12:28 17:55 21:17 WBC RBC Hgb Hct MCHC RDW Lymph % (Auto) Mitchell % (Auto) Eos % (Auto) Lymph # Mitchell # Lymph # (Auto) Mitchell # (Auto) Seg Neutrophils % Seg Neuts % (Manual) Lymphocytes % (Manual) Seg Neutrophils # Seg Neutrophils # Man Lymphocytes # (Manual) Monocytes % (Manual) Eosinophils % (Manual) Monocytes # (Manual) Eosinophils # (Manual) D-Dimer Heparin Anti-Xa Level ABG pH POC ABG pCO2 POC ABG pO2 ABG pO2 ABG HCO3 ABG O2 Saturation ABG Base Excess ABG Hemoglobin ABG Oxyhemoglobin VBG pH ABG Sodium ABG Potassium ABG Glucose Oxyhemoglobin Sodium Potassium Chloride Carbon Dioxide BUN 61 H Creatinine Glucose 131 H POC Glucose 165 H 174 H Lactic Acid Calcium Ferritin AST Alkaline Phosphatase Magnesium Lactate Dehydrogenase Total Creatine Kinase CK-MB (CK-2) C-Reactive Protein Total Protein Albumin Troponin T HDL Cholesterol Arterial Blood Glucose Urine WBC (Auto) Urine Creatinine Urine Total Protein Coronavirus (PCR) Crossmatch 06/13/20 06/13/20 06/14/20 21:17 23:50 05:34 WBC RBC Hgb Hct MCHC RDW Lymph % (Auto) [place] % (Auto) Eos % (Auto) Lymph # Mitchell # Lymph # (Auto) Mitchell # (Auto) Seg Neutrophils % Seg Neuts % (Manual) Lymphocytes % (Manual) Seg Neutrophils # Seg Neutrophils # Man Lymphocytes # (Manual) Monocytes % (Manual) Eosinophils % (Manual) Monocytes # (Manual) Eosinophils # (Manual) D-Dimer Heparin Anti-Xa Level 0.72 H ABG pH POC ABG pCO2 POC ABG pO2 ABG pO2 ABG HCO3 ABG O2 Saturation ABG Base Excess ABG Hemoglobin ABG Oxyhemoglobin VBG pH ABG Sodium ABG Potassium ABG Glucose Oxyhemoglobin Sodium 146 H Potassium Chloride 107.6 H Carbon Dioxide BUN 61 H Creatinine 1.3 H Glucose 135 H POC Glucose 146 H Lactic Acid Calcium Ferritin AST Alkaline Phosphatase Magnesium Lactate Dehydrogenase Total Creatine Kinase CK-MB (CK-2) C-Reactive Protein Total Protein Albumin Troponin T HDL Cholesterol Arterial Blood Glucose Urine WBC (Auto) Urine Creatinine Urine Total Protein Coronavirus (PCR) Crossmatch 06/14/20 06/14/20 06/14/20 06:11 09:28 11:30 WBC RBC Hgb Hct MCHC RDW Lymph % (Auto) Mitchell % (Auto) Eos % (Auto) Lymph # Mitchell # Lymph # (Auto) Mitchell # (Auto) Seg Neutrophils % Seg Neuts % (Manual) Lymphocytes % (Manual) Seg Neutrophils # Seg Neutrophils # Man Lymphocytes # (Manual) Monocytes % (Manual) Eosinophils % (Manual) Monocytes # (Manual) Eosinophils # (Manual) D-Dimer Heparin Anti-Xa Level 0.90 H ABG pH POC ABG pCO2 POC ABG pO2 ABG pO2 ABG HCO3 ABG O2 Saturation ABG Base Excess ABG Hemoglobin ABG Oxyhemoglobin VBG pH ABG Sodium ABG Potassium ABG Glucose Oxyhemoglobin Sodium Potassium Chloride Carbon Dioxide BUN Creatinine Glucose POC Glucose 141 H 186 H Lactic Acid Calcium Ferritin AST Alkaline Phosphatase Magnesium Lactate Dehydrogenase Total Creatine Kinase CK-MB (CK-2) C-Reactive Protein Total Protein Albumin Troponin T HDL Cholesterol Arterial Blood Glucose Urine WBC (Auto) Urine Creatinine Urine Total Protein Coronavirus (PCR) Crossmatch 06/14/20 06/14/20 06/14/20 16:07 18:16 23:51 WBC RBC Hgb Hct MCHC RDW Lymph % (Auto) Mitchell % (Auto) Eos % (Auto) Lymph # Mitchell # Lymph # (Auto) Mitchell # (Auto) Seg Neutrophils % Seg Neuts % (Manual) Lymphocytes % (Manual) Seg Neutrophils # Seg Neutrophils # Man Lymphocytes # (Manual) Monocytes % (Manual) Eosinophils % (Manual) Monocytes # (Manual) Eosinophils # (Manual) D-Dimer Heparin Anti-Xa Level 0.82 H ABG pH POC ABG pCO2 POC ABG pO2 ABG pO2 ABG HCO3 ABG O2 Saturation ABG Base Excess ABG Hemoglobin ABG Oxyhemoglobin VBG pH ABG Sodium ABG Potassium ABG Glucose Oxyhemoglobin Sodium Potassium Chloride Carbon Dioxide BUN Creatinine Glucose POC Glucose 106 H 154 H Lactic Acid Calcium Ferritin AST Alkaline Phosphatase Magnesium Lactate Dehydrogenase Total Creatine Kinase CK-MB (CK-2) C-Reactive Protein Total Protein Albumin Troponin T HDL Cholesterol Arterial Blood Glucose Urine WBC (Auto) Urine Creatinine Urine Total Protein Coronavirus (PCR) Crossmatch 06/15/20 06/15/20 06/15/20 04:24 04:24 05:59 WBC RBC 2.75 L Hgb 7.9 L Hct 24.0 L MCHC RDW 16.4 H Lymph % (Auto) 12.9 L Mitchell % (Auto) 8.7 H Eos % (Auto) 4.6 H Lymph # 1.1 L Mitchell # Lymph # (Auto) Mitchell # (Auto) Seg Neutrophils % 73.2 H Seg Neuts % (Manual) Lymphocytes % (Manual) Seg Neutrophils # Seg Neutrophils # Man Lymphocytes # (Manual) Monocytes % (Manual) Eosinophils % (Manual) Monocytes # (Manual) Eosinophils # (Manual) D-Dimer Heparin Anti-Xa Level ABG pH POC ABG pCO2 POC ABG pO2 ABG pO2 ABG HCO3 ABG O2 Saturation ABG Base Excess ABG Hemoglobin ABG Oxyhemoglobin VBG pH ABG Sodium ABG Potassium ABG Glucose Oxyhemoglobin Sodium Potassium 3.4 L Chloride Carbon Dioxide BUN 55 H Creatinine 1.3 H Glucose 142 H POC Glucose 131 H Lactic Acid Calcium Ferritin AST Alkaline Phosphatase Magnesium Lactate Dehydrogenase Total Creatine Kinase CK-MB (CK-2) C-Reactive Protein Total Protein Albumin Troponin T HDL Cholesterol Arterial Blood Glucose Urine WBC (Auto) Urine Creatinine Urine Total Protein Coronavirus (PCR) Crossmatch 06/15/20 06/15/20 06/16/20 12:33 17:07 00:22 WBC RBC Hgb Hct MCHC RDW Lymph % (Auto) Mitchell % (Auto) Eos % (Auto) Lymph # Mitchell # Lymph # (Auto) Mitchell # (Auto) Seg Neutrophils % Seg Neuts % (Manual) Lymphocytes % (Manual) Seg Neutrophils # Seg Neutrophils # Man Lymphocytes # (Manual) Monocytes % (Manual) Eosinophils % (Manual) Monocytes # (Manual) Eosinophils # (Manual) D-Dimer Heparin Anti-Xa Level 0.21 L ABG pH POC ABG pCO2 POC ABG pO2 ABG pO2 ABG HCO3 ABG O2 Saturation ABG Base Excess ABG Hemoglobin ABG Oxyhemoglobin VBG pH ABG Sodium ABG Potassium ABG Glucose Oxyhemoglobin Sodium Potassium Chloride Carbon Dioxide BUN Creatinine Glucose POC Glucose 180 H 185 H Lactic Acid Calcium Ferritin AST Alkaline Phosphatase Magnesium Lactate Dehydrogenase Total Creatine Kinase CK-MB (CK-2) C-Reactive Protein Total Protein Albumin Troponin T HDL Cholesterol Arterial Blood Glucose Urine WBC (Auto) Urine Creatinine Urine Total Protein Coronavirus (PCR) Crossmatch 06/16/20 06/16/20 06/16/20 01:45 08:06 09:15 WBC RBC Hgb Hct MCHC RDW Lymph % (Auto) [place] % (Auto) Eos % (Auto) Lymph # Mitchell # Lymph # (Auto) Mitchell # (Auto) Seg Neutrophils % Seg Neuts % (Manual) Lymphocytes % (Manual) Seg Neutrophils # Seg Neutrophils # Man Lymphocytes # (Manual) Monocytes % (Manual) Eosinophils % (Manual) Monocytes # (Manual) Eosinophils # (Manual) D-Dimer Heparin Anti-Xa Level ABG pH POC ABG pCO2 POC ABG pO2 ABG pO2 ABG HCO3 ABG O2 Saturation ABG Base Excess ABG Hemoglobin ABG Oxyhemoglobin VBG pH ABG Sodium ABG Potassium ABG Glucose Oxyhemoglobin Sodium Potassium Chloride Carbon Dioxide BUN 49 H Creatinine Glucose 154 H POC Glucose 140 H 171 H Lactic Acid Calcium Ferritin AST Alkaline Phosphatase Magnesium Lactate Dehydrogenase Total Creatine Kinase CK-MB (CK-2) C-Reactive Protein Total Protein Albumin Troponin T HDL Cholesterol Arterial Blood Glucose Urine WBC (Auto) Urine Creatinine Urine Total Protein Coronavirus (PCR) Crossmatch 06/16/20 06/16/20 06/16/20 10:46 12:33 17:54 WBC RBC Hgb Hct MCHC RDW Lymph % (Auto) [place] % (Auto) Eos % (Auto) Lymph # Mitchell # Lymph # (Auto) Mitchell # (Auto) Seg Neutrophils % Seg Neuts % (Manual) Lymphocytes % (Manual) Seg Neutrophils # Seg Neutrophils # Man Lymphocytes # (Manual) Monocytes % (Manual) Eosinophils % (Manual) Monocytes # (Manual) Eosinophils # (Manual) D-Dimer Heparin Anti-Xa Level 0.12 L ABG pH POC ABG pCO2 POC ABG pO2 ABG pO2 ABG HCO3 ABG O2 Saturation ABG Base Excess ABG Hemoglobin ABG Oxyhemoglobin VBG pH ABG Sodium ABG Potassium ABG Glucose Oxyhemoglobin Sodium Potassium Chloride Carbon Dioxide BUN Creatinine Glucose POC Glucose 166 H 151 H Lactic Acid Calcium Ferritin AST Alkaline Phosphatase Magnesium Lactate Dehydrogenase Total Creatine Kinase CK-MB (CK-2) C-Reactive Protein Total Protein Albumin Troponin T HDL Cholesterol Arterial Blood Glucose Urine WBC (Auto) Urine Creatinine Urine Total Protein Coronavirus (PCR) Crossmatch 06/16/20 06/17/20 06/17/20 18:47 00:00 02:19 WBC RBC Hgb Hct MCHC RDW Lymph % (Auto) [place] % (Auto) Eos % (Auto) Lymph # Mitchell # Lymph # (Auto) Mitchell # (Auto) Seg Neutrophils % Seg Neuts % (Manual) Lymphocytes % (Manual) Seg Neutrophils # Seg Neutrophils # Man Lymphocytes # (Manual) Monocytes % (Manual) Eosinophils % (Manual) Monocytes # (Manual) Eosinophils # (Manual) D-Dimer Heparin Anti-Xa Level 0.73 H 0.77 H ABG pH POC ABG pCO2 POC ABG pO2 ABG pO2 ABG HCO3 ABG O2 Saturation ABG Base Excess ABG Hemoglobin ABG Oxyhemoglobin VBG pH ABG Sodium ABG Potassium ABG Glucose Oxyhemoglobin Sodium Potassium Chloride Carbon Dioxide BUN Creatinine Glucose POC Glucose 139 H Lactic Acid Calcium Ferritin AST Alkaline Phosphatase Magnesium Lactate Dehydrogenase Total Creatine Kinase CK-MB (CK-2) C-Reactive Protein Total Protein Albumin Troponin T HDL Cholesterol Arterial Blood Glucose Urine WBC (Auto) Urine Creatinine Urine Total Protein Coronavirus (PCR) Crossmatch 06/17/20 06/17/20 06/17/20 06:07 11:42 16:43 WBC RBC Hgb Hct MCHC RDW Lymph % (Auto) [place] % (Auto) Eos % (Auto) Lymph # Mitchell # Lymph # (Auto) Mitchell # (Auto) Seg Neutrophils % Seg Neuts % (Manual) Lymphocytes % (Manual) Seg Neutrophils # Seg Neutrophils # Man Lymphocytes # (Manual) Monocytes % (Manual) Eosinophils % (Manual) Monocytes # (Manual) Eosinophils # (Manual) D-Dimer Heparin Anti-Xa Level 0.73 H ABG pH POC ABG pCO2 POC ABG pO2 ABG pO2 ABG HCO3 ABG O2 Saturation ABG Base Excess ABG Hemoglobin ABG Oxyhemoglobin VBG pH ABG Sodium ABG Potassium ABG Glucose Oxyhemoglobin Sodium Potassium Chloride Carbon Dioxide BUN Creatinine Glucose POC Glucose 169 H 169 H Lactic Acid Calcium Ferritin AST Alkaline Phosphatase Magnesium Lactate Dehydrogenase Total Creatine Kinase CK-MB (CK-2) C-Reactive Protein Total Protein Albumin Troponin T HDL Cholesterol Arterial Blood Glucose Urine WBC (Auto) Urine Creatinine Urine Total Protein Coronavirus (PCR) Crossmatch 06/17/20 06/17/20 06/17/20 18:18 23:08 23:16 WBC RBC Hgb Hct MCHC RDW Lymph % (Auto) Mitchell % (Auto) Eos % (Auto) Lymph # Mitchell # Lymph # (Auto) Mitchell # (Auto) Seg Neutrophils % Seg Neuts % (Manual) Lymphocytes % (Manual) Seg Neutrophils # Seg Neutrophils # Man Lymphocytes # (Manual) Monocytes % (Manual) Eosinophils % (Manual) Monocytes # (Manual) Eosinophils # (Manual) D-Dimer Heparin Anti-Xa Level 0.71 H ABG pH POC ABG pCO2 POC ABG pO2 ABG pO2 ABG HCO3 ABG O2 Saturation ABG Base Excess ABG Hemoglobin ABG Oxyhemoglobin VBG pH ABG Sodium ABG Potassium ABG Glucose Oxyhemoglobin Sodium Potassium Chloride Carbon Dioxide BUN Creatinine Glucose POC Glucose 159 H 134 H Lactic Acid Calcium Ferritin AST Alkaline Phosphatase Magnesium Lactate Dehydrogenase Total Creatine Kinase CK-MB (CK-2) C-Reactive Protein Total Protein Albumin Troponin T HDL Cholesterol Arterial Blood Glucose Urine WBC (Auto) Urine Creatinine Urine Total Protein Coronavirus (PCR) Crossmatch 06/18/20 06/18/20 06/18/20 04:42 05:52 11:50 WBC RBC Hgb Hct MCHC RDW Lymph % (Auto) [place] % (Auto) Eos % (Auto) Lymph # Mitchell # Lymph # (Auto) Mitchell # (Auto) Seg Neutrophils % Seg Neuts % (Manual) Lymphocytes % (Manual) Seg Neutrophils # Seg Neutrophils # Man Lymphocytes # (Manual) Monocytes % (Manual) Eosinophils % (Manual) Monocytes # (Manual) Eosinophils # (Manual) D-Dimer Heparin Anti-Xa Level ABG pH POC ABG pCO2 POC ABG pO2 ABG pO2 ABG HCO3 ABG O2 Saturation ABG Base Excess ABG Hemoglobin ABG Oxyhemoglobin VBG pH ABG Sodium ABG Potassium ABG Glucose Oxyhemoglobin Sodium Potassium Chloride Carbon Dioxide BUN 44 H Creatinine Glucose 115 H POC Glucose 171 H 167 H Lactic Acid Calcium Ferritin AST Alkaline Phosphatase Magnesium Lactate Dehydrogenase Total Creatine Kinase CK-MB (CK-2) C-Reactive Protein Total Protein Albumin Troponin T HDL Cholesterol Arterial Blood Glucose Urine WBC (Auto) Urine Creatinine Urine Total Protein Coronavirus (PCR) Crossmatch 06/18/20 06/19/20 06/19/20 23:46 05:48 07:52 WBC RBC Hgb Hct MCHC RDW Lymph % (Auto) Mitchell % (Auto) Eos % (Auto) Lymph # Mitchell # Lymph # (Auto) Mitchell # (Auto) Seg Neutrophils % Seg Neuts % (Manual) Lymphocytes % (Manual) Seg Neutrophils # Seg Neutrophils # Man Lymphocytes # (Manual) Monocytes % (Manual) Eosinophils % (Manual) Monocytes # (Manual) Eosinophils # (Manual) D-Dimer Heparin Anti-Xa Level ABG pH POC ABG pCO2 POC ABG pO2 ABG pO2 ABG HCO3 ABG O2 Saturation ABG Base Excess ABG Hemoglobin ABG Oxyhemoglobin VBG pH ABG Sodium ABG Potassium ABG Glucose Oxyhemoglobin Sodium Potassium Chloride Carbon Dioxide BUN Creatinine Glucose POC Glucose 130 H 207 H 175 H Lactic Acid Calcium Ferritin AST Alkaline Phosphatase Magnesium Lactate Dehydrogenase Total Creatine Kinase CK-MB (CK-2) C-Reactive Protein Total Protein Albumin Troponin T HDL Cholesterol Arterial Blood Glucose Urine WBC (Auto) Urine Creatinine Urine Total Protein Coronavirus (PCR) Crossmatch 09/08/2806/19/20 06/20/20 11:42 22:54 05:17 WBC RBC Hgb Hct MCHC RDW Lymph % (Auto) [place] % (Auto) Eos % (Auto) Lymph # Mitchell # Lymph # (Auto) Mitchell # (Auto) Seg Neutrophils % Seg Neuts % (Manual) Lymphocytes % (Manual) Seg Neutrophils # Seg Neutrophils # Man Lymphocytes # (Manual) Monocytes % (Manual) Eosinophils % (Manual) Monocytes # (Manual) Eosinophils # (Manual) D-Dimer Heparin Anti-Xa Level ABG pH POC ABG pCO2 POC ABG pO2 ABG pO2 ABG HCO3 ABG O2 Saturation ABG Base Excess ABG Hemoglobin ABG Oxyhemoglobin VBG pH ABG Sodium ABG Potassium ABG Glucose Oxyhemoglobin Sodium Potassium Chloride Carbon Dioxide BUN Creatinine Glucose POC Glucose 166 H 135 H 218 H Lactic Acid Calcium Ferritin AST Alkaline Phosphatase Magnesium Lactate Dehydrogenase Total Creatine Kinase CK-MB (CK-2) C-Reactive Protein Total Protein Albumin Troponin T HDL Cholesterol Arterial Blood Glucose Urine WBC (Auto) Urine Creatinine Urine Total Protein Coronavirus (PCR) Crossmatch 06/20/20 06/20/20 06/20/20 12:04 16:25 16:35 WBC RBC Hgb Hct MCHC RDW Lymph % (Auto) [place] % (Auto) Eos % (Auto) Lymph # Mitchell # Lymph # (Auto) Mitchell # (Auto) Seg Neutrophils % Seg Neuts % (Manual) Lymphocytes % (Manual) Seg Neutrophils # Seg Neutrophils # Man Lymphocytes # (Manual) Monocytes % (Manual) Eosinophils % (Manual) Monocytes # (Manual) Eosinophils # (Manual) D-Dimer Heparin Anti-Xa Level ABG pH POC ABG pCO2 POC ABG pO2 ABG pO2 59.6 L ABG HCO3 28.7 H ABG O2 Saturation 93.5 L ABG Base Excess 3.4 H ABG Hemoglobin 7.2 L ABG Oxyhemoglobin VBG pH ABG Sodium ABG Potassium ABG Glucose Oxyhemoglobin 91.3 L Sodium Potassium Chloride Carbon Dioxide BUN Creatinine Glucose POC Glucose 194 H 137 H Lactic Acid Calcium Ferritin AST Alkaline Phosphatase Magnesium Lactate Dehydrogenase Total Creatine Kinase CK-MB (CK-2) C-Reactive Protein Total Protein Albumin Troponin T HDL Cholesterol Arterial Blood Glucose Urine WBC (Auto) Urine Creatinine Urine Total Protein Coronavirus (PCR) Crossmatch 06/20/20 06/21/20 06/21/20 23:59 06:25 12:01 WBC RBC Hgb Hct MCHC RDW Lymph % (Auto) Mitchell % (Auto) Eos % (Auto) Lymph # Mitchell # Lymph # (Auto) Mitchell # (Auto) Seg Neutrophils % Seg Neuts % (Manual) Lymphocytes % (Manual) Seg Neutrophils # Seg Neutrophils # Man Lymphocytes # (Manual) Monocytes % (Manual) Eosinophils % (Manual) Monocytes # (Manual) Eosinophils # (Manual) D-Dimer Heparin Anti-Xa Level ABG pH POC ABG pCO2 POC ABG pO2 ABG pO2 ABG HCO3 ABG O2 Saturation ABG Base Excess ABG Hemoglobin ABG Oxyhemoglobin VBG pH ABG Sodium ABG Potassium ABG Glucose Oxyhemoglobin Sodium Potassium Chloride Carbon Dioxide BUN Creatinine Glucose POC Glucose 156 H 177 H 195 H Lactic Acid Calcium Ferritin AST Alkaline Phosphatase Magnesium Lactate Dehydrogenase Total Creatine Kinase CK-MB (CK-2) C-Reactive Protein Total Protein Albumin Troponin T HDL Cholesterol Arterial Blood Glucose Urine WBC (Auto) Urine Creatinine Urine Total Protein Coronavirus (PCR) Crossmatch 06/21/20 06/21/20 06/22/20 17:04 21:51 05:06 WBC RBC Hgb Hct MCHC RDW Lymph % (Auto) Mitchell % (Auto) Eos % (Auto) Lymph # Mitchell # Lymph # (Auto) Mitchell # (Auto) Seg Neutrophils % Seg Neuts % (Manual) Lymphocytes % (Manual) Seg Neutrophils # Seg Neutrophils # Man Lymphocytes # (Manual) Monocytes % (Manual) Eosinophils % (Manual) Monocytes # (Manual) Eosinophils # (Manual) D-Dimer Heparin Anti-Xa Level ABG pH POC ABG pCO2 POC ABG pO2 ABG pO2 ABG HCO3 ABG O2 Saturation ABG Base Excess ABG Hemoglobin ABG Oxyhemoglobin VBG pH ABG Sodium ABG Potassium ABG Glucose Oxyhemoglobin Sodium Potassium Chloride Carbon Dioxide BUN Creatinine Glucose POC Glucose 156 H 154 H 167 H Lactic Acid Calcium Ferritin AST Alkaline Phosphatase Magnesium Lactate Dehydrogenase Total Creatine Kinase CK-MB (CK-2) C-Reactive Protein Total Protein Albumin Troponin T HDL Cholesterol Arterial Blood Glucose Urine WBC (Auto) Urine Creatinine Urine Total Protein Coronavirus (PCR) Crossmatch 06/22/20 06/22/20 06/22/20 11:20 15:27 16:58 WBC RBC Hgb Hct MCHC RDW Lymph % (Auto) Mitchell % (Auto) Eos % (Auto) Lymph # Mitchell # Lymph # (Auto) Mitchell # (Auto) Seg Neutrophils % Seg Neuts % (Manual) Lymphocytes % (Manual) Seg Neutrophils # Seg Neutrophils # Man Lymphocytes # (Manual) Monocytes % (Manual) Eosinophils % (Manual) Monocytes # (Manual) Eosinophils # (Manual) D-Dimer Heparin Anti-Xa Level ABG pH 7.206 L POC ABG pCO2 79.9 H POC ABG pO2 ABG pO2 ABG HCO3 ABG O2 Saturation ABG Base Excess ABG Hemoglobin 8.3 L ABG Oxyhemoglobin VBG pH ABG Sodium ABG Potassium ABG Glucose Oxyhemoglobin Sodium Potassium Chloride Carbon Dioxide BUN Creatinine Glucose POC Glucose 181 H 230 H Lactic Acid Calcium Ferritin AST Alkaline Phosphatase Magnesium Lactate Dehydrogenase Total Creatine Kinase CK-MB (CK-2) C-Reactive Protein Total Protein Albumin Troponin T HDL Cholesterol Arterial Blood Glucose Urine WBC (Auto) Urine Creatinine Urine Total Protein Coronavirus (PCR) Crossmatch 06/22/20 06/23/20 06/23/20 22:26 05:49 05:49 WBC RBC 2.58 L Hgb 7.4 L Hct 23.2 L MCHC RDW 17.0 H Lymph % (Auto) Mitchell % (Auto) 11.2 H Eos % (Auto) Lymph # 1.0 L Mitchell # Lymph # (Auto) Mitchell # (Auto) Seg Neutrophils % Seg Neuts % (Manual) Lymphocytes % (Manual) Seg Neutrophils # Seg Neutrophils # Man Lymphocytes # (Manual) Monocytes % (Manual) Eosinophils % (Manual) Monocytes # (Manual) Eosinophils # (Manual) D-Dimer Heparin Anti-Xa Level ABG pH POC ABG pCO2 POC ABG pO2 ABG pO2 ABG HCO3 ABG O2 Saturation ABG Base Excess ABG Hemoglobin ABG Oxyhemoglobin VBG pH ABG Sodium ABG Potassium ABG Glucose Oxyhemoglobin Sodium Potassium Chloride Carbon Dioxide BUN 68 H Creatinine 2.4 H Glucose 198 H POC Glucose 195 H Lactic Acid Calcium Ferritin AST Alkaline Phosphatase Magnesium Lactate Dehydrogenase Total Creatine Kinase CK-MB (CK-2) C-Reactive Protein Total Protein Albumin Troponin T HDL Cholesterol Arterial Blood Glucose Urine WBC (Auto) Urine Creatinine Urine Total Protein Coronavirus (PCR) Crossmatch 06/23/20 06/23/20 06/23/20 05:50 12:29 12:34 WBC RBC Hgb Hct MCHC RDW Lymph % (Auto) Mitchell % (Auto) Eos % (Auto) Lymph # Mitchell # Lymph # (Auto) Mitchell # (Auto) Seg Neutrophils % Seg Neuts % (Manual) Lymphocytes % (Manual) Seg Neutrophils # Seg Neutrophils # Man Lymphocytes # (Manual) Monocytes % (Manual) Eosinophils % (Manual) Monocytes # (Manual) Eosinophils # (Manual) D-Dimer Heparin Anti-Xa Level ABG pH POC ABG pCO2 54.7 H POC ABG pO2 68.8 L ABG pO2 ABG HCO3 ABG O2 Saturation ABG Base Excess ABG Hemoglobin 9.8 L ABG Oxyhemoglobin 92.6 L VBG pH ABG Sodium ABG Potassium ABG Glucose Oxyhemoglobin Sodium Potassium Chloride Carbon Dioxide BUN Creatinine Glucose POC Glucose 202 H 218 H Lactic Acid Calcium Ferritin AST Alkaline Phosphatase Magnesium Lactate Dehydrogenase Total Creatine Kinase CK-MB (CK-2) C-Reactive Protein Total Protein Albumin Troponin T HDL Cholesterol Arterial Blood Glucose Urine WBC (Auto) Urine Creatinine Urine Total Protein Coronavirus (PCR) Crossmatch 06/23/20 06/23/20 06/24/20 16:02 22:22 01:06 WBC RBC Hgb Hct MCHC RDW Lymph % (Auto) Mitchell % (Auto) Eos % (Auto) Lymph # Mitchell # Lymph # (Auto) Mitchell # (Auto) Seg Neutrophils % Seg Neuts % (Manual) Lymphocytes % (Manual) Seg Neutrophils # Seg Neutrophils # Man Lymphocytes # (Manual) Monocytes % (Manual) Eosinophils % (Manual) Monocytes # (Manual) Eosinophils # (Manual) D-Dimer Heparin Anti-Xa Level ABG pH POC ABG pCO2 POC ABG pO2 ABG pO2 ABG HCO3 ABG O2 Saturation ABG Base Excess ABG Hemoglobin ABG Oxyhemoglobin VBG pH ABG Sodium ABG Potassium ABG Glucose Oxyhemoglobin Sodium Potassium Chloride Carbon Dioxide BUN Creatinine Glucose POC Glucose 190 H 166 H 171 H Lactic Acid Calcium Ferritin AST Alkaline Phosphatase Magnesium Lactate Dehydrogenase Total Creatine Kinase CK-MB (CK-2) C-Reactive Protein Total Protein Albumin Troponin T HDL Cholesterol Arterial Blood Glucose Urine WBC (Auto) Urine Creatinine Urine Total Protein Coronavirus (PCR) Crossmatch 06/24/20 06/24/20 06/24/20 04:48 05:35 11:48 WBC RBC Hgb Hct MCHC RDW Lymph % (Auto) Mitchell % (Auto) Eos % (Auto) Lymph # Mitchell # Lymph # (Auto) Mitchell # (Auto) Seg Neutrophils % Seg Neuts % (Manual) Lymphocytes % (Manual) Seg Neutrophils # Seg Neutrophils # Man Lymphocytes # (Manual) Monocytes % (Manual) Eosinophils % (Manual) Monocytes # (Manual) Eosinophils # (Manual) D-Dimer Heparin Anti-Xa Level ABG pH POC ABG pCO2 POC ABG pO2 ABG pO2 ABG HCO3 ABG O2 Saturation ABG Base Excess ABG Hemoglobin ABG Oxyhemoglobin VBG pH ABG Sodium ABG Potassium ABG Glucose Oxyhemoglobin Sodium Potassium Chloride Carbon Dioxide BUN 75 H Creatinine 2.6 H Glucose 179 H POC Glucose 172 H 153 H Lactic Acid Calcium Ferritin AST Alkaline Phosphatase Magnesium Lactate Dehydrogenase Total Creatine Kinase CK-MB (CK-2) C-Reactive Protein Total Protein Albumin Troponin T HDL Cholesterol Arterial Blood Glucose Urine WBC (Auto) Urine Creatinine Urine Total Protein Coronavirus (PCR) Crossmatch 06/24/20 06/24/20 06/25/20 16:38 21:52 12:00 WBC RBC Hgb Hct MCHC RDW Lymph % (Auto) Mitchell % (Auto) Eos % (Auto) Lymph # Mitchell # Lymph # (Auto) Mitchell # (Auto) Seg Neutrophils % Seg Neuts % (Manual) Lymphocytes % (Manual) Seg Neutrophils # Seg Neutrophils # Man Lymphocytes # (Manual) Monocytes % (Manual) Eosinophils % (Manual) Monocytes # (Manual) Eosinophils # (Manual) D-Dimer Heparin Anti-Xa Level ABG pH POC ABG pCO2 POC ABG pO2 ABG pO2 ABG HCO3 ABG O2 Saturation ABG Base Excess ABG Hemoglobin ABG Oxyhemoglobin VBG pH ABG Sodium ABG Potassium ABG Glucose Oxyhemoglobin Sodium Potassium Chloride Carbon Dioxide BUN Creatinine Glucose POC Glucose 123 H 115 H 203 H Lactic Acid Calcium Ferritin AST Alkaline Phosphatase Magnesium Lactate Dehydrogenase Total Creatine Kinase CK-MB (CK-2) C-Reactive Protein Total Protein Albumin Troponin T HDL Cholesterol Arterial Blood Glucose Urine WBC (Auto) Urine Creatinine Urine Total Protein Coronavirus (PCR) Crossmatch 06/25/20 06/25/20 06/25/20 15:43 16:37 23:02 WBC RBC Hgb Hct MCHC RDW Lymph % (Auto) Mitchell % (Auto) Eos % (Auto) Lymph # Mitchell # Lymph # (Auto) Mitchell # (Auto) Seg Neutrophils % Seg Neuts % (Manual) Lymphocytes % (Manual) Seg Neutrophils # Seg Neutrophils # Man Lymphocytes # (Manual) Monocytes % (Manual) Eosinophils % (Manual) Monocytes # (Manual) Eosinophils # (Manual) D-Dimer Heparin Anti-Xa Level ABG pH POC ABG pCO2 POC ABG pO2 ABG pO2 ABG HCO3 ABG O2 Saturation ABG Base Excess ABG Hemoglobin ABG Oxyhemoglobin VBG pH ABG Sodium ABG Potassium ABG Glucose Oxyhemoglobin Sodium Potassium Chloride Carbon Dioxide BUN 71 H Creatinine 1.8 H Glucose 170 H POC Glucose 191 H 126 H Lactic Acid Calcium 8.2 L Ferritin AST Alkaline Phosphatase Magnesium Lactate Dehydrogenase Total Creatine Kinase CK-MB (CK-2) C-Reactive Protein Total Protein Albumin Troponin T HDL Cholesterol Arterial Blood Glucose Urine WBC (Auto) Urine Creatinine Urine Total Protein Coronavirus (PCR) Crossmatch 06/26/20 06/26/20 06/26/20 06:34 06:34 09:27 WBC RBC 2.41 L Hgb 6.9 L Hct 21.5 L MCHC RDW 16.7 H Lymph % (Auto) 10.9 L [place] % (Auto) 9.6 H Eos % (Auto) Lymph # 0.7 L Mitchell # Lymph # (Auto) Mitchell # (Auto) Seg Neutrophils % 75.4 H Seg Neuts % (Manual) Lymphocytes % (Manual) Seg Neutrophils # Seg Neutrophils # Man Lymphocytes # (Manual) Monocytes % (Manual) Eosinophils % (Manual) Monocytes # (Manual) Eosinophils # (Manual) D-Dimer Heparin Anti-Xa Level ABG pH POC ABG pCO2 POC ABG pO2 ABG pO2 ABG HCO3 ABG O2 Saturation ABG Base Excess ABG Hemoglobin ABG Oxyhemoglobin VBG pH ABG Sodium ABG Potassium ABG Glucose Oxyhemoglobin Sodium Potassium Chloride Carbon Dioxide BUN 77 H Creatinine 1.9 H Glucose 190 H POC Glucose Lactic Acid Calcium Ferritin AST Alkaline Phosphatase Magnesium Lactate Dehydrogenase Total Creatine Kinase CK-MB (CK-2) C-Reactive Protein Total Protein Albumin Troponin T HDL Cholesterol Arterial Blood Glucose Urine WBC (Auto) Urine Creatinine Urine Total Protein Coronavirus (PCR) Crossmatch See Detail 06/26/20 06/26/20 06/26/20 12:15 16:28 17:28 WBC RBC Hgb Hct MCHC RDW Lymph % (Auto) Mitchell % (Auto) Eos % (Auto) Lymph # Mitchell # Lymph # (Auto) Mitchell # (Auto) Seg Neutrophils % Seg Neuts % (Manual) Lymphocytes % (Manual) Seg Neutrophils # Seg Neutrophils # Man Lymphocytes # (Manual) Monocytes % (Manual) Eosinophils % (Manual) Monocytes # (Manual) Eosinophils # (Manual) D-Dimer Heparin Anti-Xa Level ABG pH POC ABG pCO2 POC ABG pO2 ABG pO2 ABG HCO3 ABG O2 Saturation ABG Base Excess ABG Hemoglobin ABG Oxyhemoglobin VBG pH ABG Sodium ABG Potassium ABG Glucose Oxyhemoglobin Sodium Potassium Chloride Carbon Dioxide BUN Creatinine Glucose POC Glucose 187 H 149 H 189 H Lactic Acid Calcium Ferritin AST Alkaline Phosphatase Magnesium Lactate Dehydrogenase Total Creatine Kinase CK-MB (CK-2) C-Reactive Protein Total Protein Albumin Troponin T HDL Cholesterol Arterial Blood Glucose Urine WBC (Auto) Urine Creatinine Urine Total Protein Coronavirus (PCR) Crossmatch 06/26/20 06/26/20 06/26/20 18:30 18:30 18:30 WBC RBC 2.87 L Hgb 8.2 L Hct 25.9 L MCHC RDW 17.8 H Lymph % (Auto) Mitchell % (Auto) Eos % (Auto) Lymph # Mitchell # Lymph # (Auto) Mitchell # (Auto) Seg Neutrophils % Seg Neuts % (Manual) 83.0 H Lymphocytes % (Manual) 8.0 L Seg Neutrophils # Seg Neutrophils # Man Lymphocytes # (Manual) 0.6 L Monocytes % (Manual) Eosinophils % (Manual) Monocytes # (Manual) Eosinophils # (Manual) D-Dimer Heparin Anti-Xa Level ABG pH POC ABG pCO2 POC ABG pO2 ABG pO2 ABG HCO3 ABG O2 Saturation ABG Base Excess ABG Hemoglobin ABG Oxyhemoglobin VBG pH ABG Sodium ABG Potassium ABG Glucose Oxyhemoglobin Sodium Potassium Chloride Carbon Dioxide BUN 80 H Creatinine 2.1 H Glucose 260 H POC Glucose Lactic Acid 4.30 H* Calcium 8.3 L Ferritin AST Alkaline Phosphatase Magnesium Lactate Dehydrogenase Total Creatine Kinase CK-MB (CK-2) C-Reactive Protein Total Protein Albumin Troponin T HDL Cholesterol Arterial Blood Glucose Urine WBC (Auto) Urine Creatinine Urine Total Protein Coronavirus (PCR) Crossmatch 06/26/20 06/27/20 06/27/20 18:50 01:00 04:29 WBC RBC Hgb Hct MCHC RDW Lymph % (Auto) Mitchell % (Auto) Eos % (Auto) Lymph # Mitchell # Lymph # (Auto) Mitchell # (Auto) Seg Neutrophils % Seg Neuts % (Manual) Lymphocytes % (Manual) Seg Neutrophils # Seg Neutrophils # Man Lymphocytes # (Manual) Monocytes % (Manual) Eosinophils % (Manual) Monocytes # (Manual) Eosinophils # (Manual) D-Dimer Heparin Anti-Xa Level ABG pH 7.296 L POC ABG pCO2 POC ABG pO2 ABG pO2 116.5 H 200.5 H ABG HCO3 28.4 H ABG O2 Saturation 99.3 H ABG Base Excess 3.7 H ABG Hemoglobin 5.6 L ABG Oxyhemoglobin VBG pH ABG Sodium ABG Potassium ABG Glucose Oxyhemoglobin Sodium Potassium Chloride Carbon Dioxide BUN Creatinine Glucose POC Glucose 123 H Lactic Acid Calcium Ferritin AST Alkaline Phosphatase Magnesium Lactate Dehydrogenase Total Creatine Kinase CK-MB (CK-2) C-Reactive Protein Total Protein Albumin Troponin T HDL Cholesterol Arterial Blood Glucose Urine WBC (Auto) Urine Creatinine Urine Total Protein Coronavirus (PCR) Crossmatch 06/27/20 06/27/20 06/27/20 05:00 05:00 05:00 WBC RBC 2.75 L Hgb 7.9 L Hct 24.3 L MCHC RDW 17.1 H Lymph % (Auto) 8.5 L Mitchell % (Auto) 12.6 H Eos % (Auto) Lymph # 0.7 L Mitchell # 1.0 H Lymph # (Auto) Mitchell # (Auto) Seg Neutrophils % 77.5 H Seg Neuts % (Manual) Lymphocytes % (Manual) Seg Neutrophils # Seg Neutrophils # Man Lymphocytes # (Manual) Monocytes % (Manual) Eosinophils % (Manual) Monocytes # (Manual) Eosinophils # (Manual) D-Dimer Heparin Anti-Xa Level ABG pH POC ABG pCO2 POC ABG pO2 ABG pO2 ABG HCO3 ABG O2 Saturation ABG Base Excess ABG Hemoglobin ABG Oxyhemoglobin VBG pH ABG Sodium ABG Potassium ABG Glucose Oxyhemoglobin Sodium Potassium Chloride Carbon Dioxide BUN 80 H Creatinine 2.0 H Glucose 129 H POC Glucose Lactic Acid 0.60 L Calcium 7.9 L Ferritin AST Alkaline Phosphatase Magnesium Lactate Dehydrogenase Total Creatine Kinase CK-MB (CK-2) C-Reactive Protein Total Protein Albumin Troponin T HDL Cholesterol Arterial Blood Glucose Urine WBC (Auto) Urine Creatinine Urine Total Protein Coronavirus (PCR) Crossmatch 06/27/20 06/27/20 06/27/20 05:23 13:46 17:25 WBC RBC Hgb Hct MCHC RDW Lymph % (Auto) Mitchell % (Auto) Eos % (Auto) Lymph # Mitchell # Lymph # (Auto) Mitchell # (Auto) Seg Neutrophils % Seg Neuts % (Manual) Lymphocytes % (Manual) Seg Neutrophils # Seg Neutrophils # Man Lymphocytes # (Manual) Monocytes % (Manual) Eosinophils % (Manual) Monocytes # (Manual) Eosinophils # (Manual) D-Dimer Heparin Anti-Xa Level ABG pH POC ABG pCO2 POC ABG pO2 ABG pO2 ABG HCO3 ABG O2 Saturation ABG Base Excess ABG Hemoglobin ABG Oxyhemoglobin VBG pH ABG Sodium ABG Potassium ABG Glucose Oxyhemoglobin Sodium Potassium Chloride Carbon Dioxide BUN Creatinine Glucose POC Glucose 109 H 158 H 162 H Lactic Acid Calcium Ferritin AST Alkaline Phosphatase Magnesium Lactate Dehydrogenase Total Creatine Kinase CK-MB (CK-2) C-Reactive Protein Total Protein Albumin Troponin T HDL Cholesterol Arterial Blood Glucose Urine WBC (Auto) Urine Creatinine Urine Total Protein Coronavirus (PCR) Crossmatch 06/27/20 06/27/20 06/28/20 18:43 23:46 04:05 WBC RBC Hgb 7.7 L Hct 22.1 L MCHC RDW Lymph % (Auto) Mitchell % (Auto) Eos % (Auto) Lymph # Mitchell # Lymph # (Auto) Mitchell # (Auto) Seg Neutrophils % Seg Neuts % (Manual) Lymphocytes % (Manual) Seg Neutrophils # Seg Neutrophils # Man Lymphocytes # (Manual) Monocytes % (Manual) Eosinophils % (Manual) Monocytes # (Manual) Eosinophils # (Manual) D-Dimer Heparin Anti-Xa Level ABG pH POC ABG pCO2 POC ABG pO2 ABG pO2 102.7 H ABG HCO3 28.7 H ABG O2 Saturation ABG Base Excess 3.7 H ABG Hemoglobin ABG Oxyhemoglobin VBG pH ABG Sodium ABG Potassium ABG Glucose Oxyhemoglobin Sodium Potassium Chloride Carbon Dioxide BUN Creatinine Glucose POC Glucose 142 H Lactic Acid Calcium Ferritin AST Alkaline Phosphatase Magnesium Lactate Dehydrogenase Total Creatine Kinase CK-MB (CK-2) C-Reactive Protein Total Protein Albumin Troponin T HDL Cholesterol Arterial Blood Glucose Urine WBC (Auto) Urine Creatinine Urine Total Protein Coronavirus (PCR) Crossmatch 06/28/20 06/28/20 06/28/20 09:47 09:47 12:02 WBC RBC 2.53 L Hgb 7.4 L Hct 22.2 L MCHC RDW 16.8 H Lymph % (Auto) Mitchell % (Auto) 13.5 H Eos % (Auto) Lymph # 1.1 L Mitchell # 1.0 H Lymph # (Auto) Mitchell # (Auto) Seg Neutrophils % Seg Neuts % (Manual) Lymphocytes % (Manual) Seg Neutrophils # Seg Neutrophils # Man Lymphocytes # (Manual) Monocytes % (Manual) Eosinophils % (Manual) Monocytes # (Manual) Eosinophils # (Manual) D-Dimer Heparin Anti-Xa Level ABG pH POC ABG pCO2 POC ABG pO2 ABG pO2 ABG HCO3 ABG O2 Saturation ABG Base Excess ABG Hemoglobin ABG Oxyhemoglobin VBG pH ABG Sodium ABG Potassium ABG Glucose Oxyhemoglobin Sodium Potassium Chloride Carbon Dioxide BUN 80 H Creatinine 1.5 H Glucose 139 H POC Glucose 169 H Lactic Acid Calcium 7.9 L Ferritin AST Alkaline Phosphatase Magnesium Lactate Dehydrogenase Total Creatine Kinase CK-MB (CK-2) C-Reactive Protein Total Protein 5.0 L Albumin 2.1 L Troponin T HDL Cholesterol Arterial Blood Glucose Urine WBC (Auto) Urine Creatinine Urine Total Protein Coronavirus (PCR) Crossmatch 06/28/20 06/28/20 06/28/20 12:30 12:30 17:24 WBC RBC 2.38 L Hgb 7.3 L Hct 20.9 L MCHC 35 H RDW 16.7 H Lymph % (Auto) Mitchell % (Auto) Eos % (Auto) Lymph # Mitchell # Lymph # (Auto) Mitchell # (Auto) Seg Neutrophils % Seg Neuts % (Manual) Lymphocytes % (Manual) Seg Neutrophils # Seg Neutrophils # Man Lymphocytes # (Manual) Monocytes % (Manual) Eosinophils % (Manual) Monocytes # (Manual) Eosinophils # (Manual) D-Dimer Heparin Anti-Xa Level ABG pH POC ABG pCO2 POC ABG pO2 ABG pO2 ABG HCO3 ABG O2 Saturation ABG Base Excess ABG Hemoglobin ABG Oxyhemoglobin VBG pH ABG Sodium ABG Potassium ABG Glucose Oxyhemoglobin Sodium Potassium Chloride Carbon Dioxide BUN 74 H Creatinine 1.5 H Glucose 143 H POC Glucose 173 H Lactic Acid Calcium 7.5 L Ferritin AST Alkaline Phosphatase Magnesium Lactate Dehydrogenase Total Creatine Kinase CK-MB (CK-2) C-Reactive Protein Total Protein Albumin Troponin T HDL Cholesterol Arterial Blood Glucose Urine WBC (Auto) Urine Creatinine Urine Total Protein Coronavirus (PCR) Crossmatch 0906/29/20 06/29/20 00:02 03:54 04:38 WBC RBC 2.55 L Hgb 7.3 L Hct 22.4 L MCHC RDW 16.4 H Lymph % (Auto) 13.3 L [place] % (Auto) 12.5 H Eos % (Auto) Lymph # 1.1 L Mitchell # 1.0 H Lymph # (Auto) Mitchell # (Auto) Seg Neutrophils % Seg Neuts % (Manual) Lymphocytes % (Manual) Seg Neutrophils # Seg Neutrophils # Man Lymphocytes # (Manual) Monocytes % (Manual) Eosinophils % (Manual) Monocytes # (Manual) Eosinophils # (Manual) D-Dimer Heparin Anti-Xa Level ABG pH POC ABG pCO2 POC ABG pO2 ABG pO2 ABG HCO3 26.9 H ABG O2 Saturation ABG Base Excess ABG Hemoglobin 6.9 L ABG Oxyhemoglobin VBG pH ABG Sodium ABG Potassium ABG Glucose Oxyhemoglobin Sodium Potassium Chloride Carbon Dioxide BUN Creatinine Glucose POC Glucose 142 H Lactic Acid Calcium Ferritin AST Alkaline Phosphatase Magnesium Lactate Dehydrogenase Total Creatine Kinase CK-MB (CK-2) C-Reactive Protein Total Protein Albumin Troponin T HDL Cholesterol Arterial Blood Glucose Urine WBC (Auto) Urine Creatinine Urine Total Protein Coronavirus (PCR) Crossmatch 06/29/20 06/29/20 06/29/20 04:38 05:38 12:25 WBC RBC Hgb Hct MCHC RDW Lymph % (Auto) Mitchell % (Auto) Eos % (Auto) Lymph # Mitchell # Lymph # (Auto) Mitchell # (Auto) Seg Neutrophils % Seg Neuts % (Manual) Lymphocytes % (Manual) Seg Neutrophils # Seg Neutrophils # Man Lymphocytes # (Manual) Monocytes % (Manual) Eosinophils % (Manual) Monocytes # (Manual) Eosinophils # (Manual) D-Dimer Heparin Anti-Xa Level ABG pH POC ABG pCO2 POC ABG pO2 ABG pO2 ABG HCO3 ABG O2 Saturation ABG Base Excess ABG Hemoglobin ABG Oxyhemoglobin VBG pH ABG Sodium ABG Potassium ABG Glucose Oxyhemoglobin Sodium Potassium Chloride 107.8 H Carbon Dioxide BUN 72 H Creatinine 1.4 H Glucose 127 H POC Glucose 122 H 138 H Lactic Acid Calcium 7.4 L Ferritin AST Alkaline Phosphatase Magnesium Lactate Dehydrogenase Total Creatine Kinase CK-MB (CK-2) C-Reactive Protein Total Protein Albumin Troponin T HDL Cholesterol Arterial Blood Glucose Urine WBC (Auto) Urine Creatinine Urine Total Protein Coronavirus (PCR) Crossmatch 06/29/20 06/29/20 06/29/20 14:45 14:45 14:45 WBC RBC Hgb Hct MCHC RDW Lymph % (Auto) Mitchell % (Auto) Eos % (Auto) Lymph # Mitchell # Lymph # (Auto) Mitchell # (Auto) Seg Neutrophils % Seg Neuts % (Manual) Lymphocytes % (Manual) Seg Neutrophils # Seg Neutrophils # Man Lymphocytes # (Manual) Monocytes % (Manual) Eosinophils % (Manual) Monocytes # (Manual) Eosinophils # (Manual) D-Dimer 2310.15 H Heparin Anti-Xa Level ABG pH POC ABG pCO2 POC ABG pO2 ABG pO2 ABG HCO3 ABG O2 Saturation ABG Base Excess ABG Hemoglobin ABG Oxyhemoglobin VBG pH ABG Sodium ABG Potassium ABG Glucose Oxyhemoglobin Sodium Potassium Chloride Carbon Dioxide BUN Creatinine Glucose POC Glucose Lactic Acid Calcium Ferritin 223.6 H AST Alkaline Phosphatase Magnesium Lactate Dehydrogenase 367 H Total Creatine Kinase CK-MB (CK-2) C-Reactive Protein 3.60 H Total Protein Albumin Troponin T HDL Cholesterol Arterial Blood Glucose Urine WBC (Auto) Urine Creatinine Urine Total Protein Coronavirus (PCR) Crossmatch 06/29/20 06/29/20 06/29/20 18:27 23:35 Unknown WBC RBC Hgb Hct MCHC RDW Lymph % (Auto) Mitchell % (Auto) Eos % (Auto) Lymph # Mitchell # Lymph # (Auto) Mitchell # (Auto) Seg Neutrophils % Seg Neuts % (Manual) Lymphocytes % (Manual) Seg Neutrophils # Seg Neutrophils # Man Lymphocytes # (Manual) Monocytes % (Manual) Eosinophils % (Manual) Monocytes # (Manual) Eosinophils # (Manual) D-Dimer Heparin Anti-Xa Level ABG pH POC ABG pCO2 POC ABG pO2 ABG pO2 ABG HCO3 ABG O2 Saturation ABG Base Excess ABG Hemoglobin ABG Oxyhemoglobin VBG pH ABG Sodium ABG Potassium ABG Glucose Oxyhemoglobin Sodium Potassium Chloride Carbon Dioxide BUN Creatinine Glucose POC Glucose 112 H 140 H Lactic Acid Calcium Ferritin AST Alkaline Phosphatase Magnesium Lactate Dehydrogenase Total Creatine Kinase CK-MB (CK-2) C-Reactive Protein Total Protein Albumin Troponin T HDL Cholesterol Arterial Blood Glucose Urine WBC (Auto) Urine Creatinine Urine Total Protein Coronavirus (PCR) Positive A Crossmatch 06/30/20 06/30/20 06/30/20 04:10 04:10 06:09 WBC RBC 2.44 L Hgb 7.1 L Hct 21.5 L MCHC RDW 16.6 H Lymph % (Auto) 11.0 L [place] % (Auto) 10.8 H Eos % (Auto) Lymph # 0.9 L Mitchell # 0.9 H Lymph # (Auto) Mitchell # (Auto) Seg Neutrophils % 73.7 H Seg Neuts % (Manual) Lymphocytes % (Manual) Seg Neutrophils # Seg Neutrophils # Man Lymphocytes # (Manual) Monocytes % (Manual) Eosinophils % (Manual) Monocytes # (Manual) Eosinophils # (Manual) D-Dimer Heparin Anti-Xa Level ABG pH POC ABG pCO2 POC ABG pO2 ABG pO2 ABG HCO3 ABG O2 Saturation ABG Base Excess ABG Hemoglobin ABG Oxyhemoglobin VBG pH ABG Sodium ABG Potassium ABG Glucose Oxyhemoglobin Sodium Potassium Chloride 109.1 H Carbon Dioxide BUN 74 H Creatinine 1.3 H Glucose 191 H POC Glucose 187 H Lactic Acid Calcium 7.8 L Ferritin AST Alkaline Phosphatase Magnesium Lactate Dehydrogenase Total Creatine Kinase CK-MB (CK-2) C-Reactive Protein Total Protein Albumin Troponin T HDL Cholesterol Arterial Blood Glucose Urine WBC (Auto) Urine Creatinine Urine Total Protein Coronavirus (PCR) Crossmatch 06/30/20 06/30/20 06/30/20 12:04 17:43 23:41 WBC RBC Hgb Hct MCHC RDW Lymph % (Auto) Mitchell % (Auto) Eos % (Auto) Lymph # Mitchell # Lymph # (Auto) Mitchell # (Auto) Seg Neutrophils % Seg Neuts % (Manual) Lymphocytes % (Manual) Seg Neutrophils # Seg Neutrophils # Man Lymphocytes # (Manual) Monocytes % (Manual) Eosinophils % (Manual) Monocytes # (Manual) Eosinophils # (Manual) D-Dimer Heparin Anti-Xa Level ABG pH POC ABG pCO2 POC ABG pO2 ABG pO2 ABG HCO3 ABG O2 Saturation ABG Base Excess ABG Hemoglobin ABG Oxyhemoglobin VBG pH ABG Sodium ABG Potassium ABG Glucose Oxyhemoglobin Sodium Potassium Chloride Carbon Dioxide BUN Creatinine Glucose POC Glucose 112 H 177 H 143 H Lactic Acid Calcium Ferritin AST Alkaline Phosphatase Magnesium Lactate Dehydrogenase Total Creatine Kinase CK-MB (CK-2) C-Reactive Protein Total Protein Albumin Troponin T HDL Cholesterol Arterial Blood Glucose Urine WBC (Auto) Urine Creatinine Urine Total Protein Coronavirus (PCR) Crossmatch 07/01/20 07/01/20 07/01/20 05:02 05:52 06:01 WBC 12.6 H RBC 2.95 L Hgb 8.2 L Hct 26.0 L MCHC RDW 16.9 H Lymph % (Auto) Mitchell % (Auto) Eos % (Auto) Lymph # Mitchell # Lymph # (Auto) Mitchell # (Auto) Seg Neutrophils % Seg Neuts % (Manual) Lymphocytes % (Manual) Seg Neutrophils # Seg Neutrophils # Man 8.6 H Lymphocytes # (Manual) Monocytes % (Manual) Eosinophils % (Manual) 5.0 H Monocytes # (Manual) Eosinophils # (Manual) 0.6 H D-Dimer Heparin Anti-Xa Level ABG pH POC ABG pCO2 POC ABG pO2 ABG pO2 ABG HCO3 ABG O2 Saturation ABG Base Excess ABG Hemoglobin 8.2 L ABG Oxyhemoglobin VBG pH ABG Sodium ABG Potassium ABG Glucose Oxyhemoglobin Sodium Potassium Chloride Carbon Dioxide BUN Creatinine Glucose POC Glucose 129 H Lactic Acid Calcium Ferritin AST Alkaline Phosphatase Magnesium Lactate Dehydrogenase Total Creatine Kinase CK-MB (CK-2) C-Reactive Protein Total Protein Albumin Troponin T HDL Cholesterol Arterial Blood Glucose Urine WBC (Auto) Urine Creatinine Urine Total Protein Coronavirus (PCR) Crossmatch 07/01/20 07/01/20 07/01/20 06:01 06:01 06:08 WBC RBC Hgb Hct MCHC RDW Lymph % (Auto) Mitchell % (Auto) Eos % (Auto) Lymph # Mitchell # Lymph # (Auto) Mitchell # (Auto) Seg Neutrophils % Seg Neuts % (Manual) Lymphocytes % (Manual) Seg Neutrophils # Seg Neutrophils # Man Lymphocytes # (Manual) Monocytes % (Manual) Eosinophils % (Manual) Monocytes # (Manual) Eosinophils # (Manual) D-Dimer Heparin Anti-Xa Level ABG pH POC ABG pCO2 POC ABG pO2 ABG pO2 ABG HCO3 ABG O2 Saturation ABG Base Excess ABG Hemoglobin ABG Oxyhemoglobin VBG pH ABG Sodium ABG Potassium ABG Glucose Oxyhemoglobin Sodium 147 H Potassium Chloride 108.0 H Carbon Dioxide BUN 71 H Creatinine 1.3 H Glucose 193 H POC Glucose 192 H Lactic Acid Calcium 8.1 L Ferritin AST Alkaline Phosphatase Magnesium Lactate Dehydrogenase Total Creatine Kinase 300 H CK-MB (CK-2) C-Reactive Protein Total Protein Albumin Troponin T 0.067 H HDL Cholesterol 61 H Arterial Blood Glucose Urine WBC (Auto) Urine Creatinine Urine Total Protein Coronavirus (PCR) Crossmatch 07/01/20 07/01/20 07/02/20 12:23 17:40 00:18 WBC RBC Hgb Hct MCHC RDW Lymph % (Auto) Mitchell % (Auto) Eos % (Auto) Lymph # Mitchell # Lymph # (Auto) Mitchell # (Auto) Seg Neutrophils % Seg Neuts % (Manual) Lymphocytes % (Manual) Seg Neutrophils # Seg Neutrophils # Man Lymphocytes # (Manual) Monocytes % (Manual) Eosinophils % (Manual) Monocytes # (Manual) Eosinophils # (Manual) D-Dimer Heparin Anti-Xa Level ABG pH POC ABG pCO2 POC ABG pO2 ABG pO2 ABG HCO3 ABG O2 Saturation ABG Base Excess ABG Hemoglobin ABG Oxyhemoglobin VBG pH ABG Sodium ABG Potassium ABG Glucose Oxyhemoglobin Sodium Potassium Chloride Carbon Dioxide BUN Creatinine Glucose POC Glucose 111 H 135 H 145 H Lactic Acid Calcium Ferritin AST Alkaline Phosphatase Magnesium Lactate Dehydrogenase Total Creatine Kinase CK-MB (CK-2) C-Reactive Protein Total Protein Albumin Troponin T HDL Cholesterol Arterial Blood Glucose Urine WBC (Auto) Urine Creatinine Urine Total Protein Coronavirus (PCR) Crossmatch 07/02/20 07/02/20 07/02/20 04:11 04:23 05:54 WBC RBC Hgb Hct MCHC RDW Lymph % (Auto) Mitchell % (Auto) Eos % (Auto) Lymph # Mitchell # Lymph # (Auto) Mitchell # (Auto) Seg Neutrophils % Seg Neuts % (Manual) Lymphocytes % (Manual) Seg Neutrophils # Seg Neutrophils # Man Lymphocytes # (Manual) Monocytes % (Manual) Eosinophils % (Manual) Monocytes # (Manual) Eosinophils # (Manual) D-Dimer Heparin Anti-Xa Level ABG pH POC ABG pCO2 POC ABG pO2 ABG pO2 ABG HCO3 ABG O2 Saturation ABG Base Excess ABG Hemoglobin 5.4 L ABG Oxyhemoglobin VBG pH ABG Sodium ABG Potassium ABG Glucose Oxyhemoglobin Sodium Potassium Chloride 108.6 H Carbon Dioxide BUN 72 H Creatinine Glucose 112 H POC Glucose 137 H Lactic Acid Calcium 7.8 L Ferritin AST Alkaline Phosphatase Magnesium Lactate Dehydrogenase Total Creatine Kinase CK-MB (CK-2) C-Reactive Protein Total Protein Albumin Troponin T HDL Cholesterol Arterial Blood Glucose Urine WBC (Auto) Urine Creatinine Urine Total Protein Coronavirus (PCR) Crossmatch 07/02/20 07/02/20 07/02/20 11:38 18:04 23:59 WBC RBC Hgb Hct MCHC RDW Lymph % (Auto) Mitchell % (Auto) Eos % (Auto) Lymph # Mitchell # Lymph # (Auto) Mitchell # (Auto) Seg Neutrophils % Seg Neuts % (Manual) Lymphocytes % (Manual) Seg Neutrophils # Seg Neutrophils # Man Lymphocytes # (Manual) Monocytes % (Manual) Eosinophils % (Manual) Monocytes # (Manual) Eosinophils # (Manual) D-Dimer Heparin Anti-Xa Level ABG pH POC ABG pCO2 POC ABG pO2 ABG pO2 ABG HCO3 ABG O2 Saturation ABG Base Excess ABG Hemoglobin ABG Oxyhemoglobin VBG pH ABG Sodium ABG Potassium ABG Glucose Oxyhemoglobin Sodium Potassium Chloride Carbon Dioxide BUN Creatinine Glucose POC Glucose 128 H 135 H 156 H Lactic Acid Calcium Ferritin AST Alkaline Phosphatase Magnesium Lactate Dehydrogenase Total Creatine Kinase CK-MB (CK-2) C-Reactive Protein Total Protein Albumin Troponin T HDL Cholesterol Arterial Blood Glucose Urine WBC (Auto) Urine Creatinine Urine Total Protein Coronavirus (PCR) Crossmatch 07/03/20 07/03/20 07/03/20 03:49 06:00 11:31 WBC RBC Hgb Hct MCHC RDW Lymph % (Auto) Mitchell % (Auto) Eos % (Auto) Lymph # Mitchell # Lymph # (Auto) Mitchell # (Auto) Seg Neutrophils % Seg Neuts % (Manual) Lymphocytes % (Manual) Seg Neutrophils # Seg Neutrophils # Man Lymphocytes # (Manual) Monocytes % (Manual) Eosinophils % (Manual) Monocytes # (Manual) Eosinophils # (Manual) D-Dimer Heparin Anti-Xa Level ABG pH POC ABG pCO2 POC ABG pO2 ABG pO2 121.0 H ABG HCO3 ABG O2 Saturation ABG Base Excess ABG Hemoglobin 8.5 L ABG Oxyhemoglobin VBG pH ABG Sodium ABG Potassium ABG Glucose Oxyhemoglobin Sodium Potassium Chloride Carbon Dioxide BUN Creatinine Glucose POC Glucose 135 H 141 H Lactic Acid Calcium Ferritin AST Alkaline Phosphatase Magnesium Lactate Dehydrogenase Total Creatine Kinase CK-MB (CK-2) C-Reactive Protein Total Protein Albumin Troponin T HDL Cholesterol Arterial Blood Glucose Urine WBC (Auto) Urine Creatinine Urine Total Protein Coronavirus (PCR) Crossmatch 07/03/20 07/03/20 07/04/20 16:07 17:40 05:49 WBC RBC Hgb Hct MCHC RDW Lymph % (Auto) Mitchell % (Auto) Eos % (Auto) Lymph # Mitchell # Lymph # (Auto) Mitchell # (Auto) Seg Neutrophils % Seg Neuts % (Manual) Lymphocytes % (Manual) Seg Neutrophils # Seg Neutrophils # Man Lymphocytes # (Manual) Monocytes % (Manual) Eosinophils % (Manual) Monocytes # (Manual) Eosinophils # (Manual) D-Dimer Heparin Anti-Xa Level ABG pH POC ABG pCO2 POC ABG pO2 ABG pO2 126.9 H ABG HCO3 ABG O2 Saturation ABG Base Excess ABG Hemoglobin 8.1 L ABG Oxyhemoglobin VBG pH ABG Sodium ABG Potassium ABG Glucose Oxyhemoglobin Sodium Potassium Chloride Carbon Dioxide BUN Creatinine Glucose POC Glucose 120 H 128 H Lactic Acid Calcium Ferritin AST Alkaline Phosphatase Magnesium Lactate Dehydrogenase Total Creatine Kinase CK-MB (CK-2) C-Reactive Protein Total Protein Albumin Troponin T HDL Cholesterol Arterial Blood Glucose Urine WBC (Auto) Urine Creatinine Urine Total Protein Coronavirus (PCR) Crossmatch 07/04/20 07/04/20 07/05/20 11:54 18:00 00:07 WBC RBC Hgb Hct MCHC RDW Lymph % (Auto) Mitchell % (Auto) Eos % (Auto) Lymph # Mitchell # Lymph # (Auto) Mitchell # (Auto) Seg Neutrophils % Seg Neuts % (Manual) Lymphocytes % (Manual) Seg Neutrophils # Seg Neutrophils # Man Lymphocytes # (Manual) Monocytes % (Manual) Eosinophils % (Manual) Monocytes # (Manual) Eosinophils # (Manual) D-Dimer Heparin Anti-Xa Level ABG pH POC ABG pCO2 POC ABG pO2 ABG pO2 ABG HCO3 ABG O2 Saturation ABG Base Excess ABG Hemoglobin ABG Oxyhemoglobin VBG pH ABG Sodium ABG Potassium ABG Glucose Oxyhemoglobin Sodium Potassium Chloride Carbon Dioxide BUN Creatinine Glucose POC Glucose 168 H 133 H 121 H Lactic Acid Calcium Ferritin AST Alkaline Phosphatase Magnesium Lactate Dehydrogenase Total Creatine Kinase CK-MB (CK-2) C-Reactive Protein Total Protein Albumin Troponin T HDL Cholesterol Arterial Blood Glucose Urine WBC (Auto) Urine Creatinine Urine Total Protein Coronavirus (PCR) Crossmatch 07/05/20 07/05/20 07/05/20 01:12 02:30 12:09 WBC RBC 2.35 L Hgb 6.9 L Hct 21.1 L MCHC RDW 16.8 H Lymph % (Auto) [place] % (Auto) Eos % (Auto) Lymph # Mitchell # Lymph # (Auto) Mitchell # (Auto) Seg Neutrophils % Seg Neuts % (Manual) 74.0 H Lymphocytes % (Manual) 12.0 L Seg Neutrophils # Seg Neutrophils # Man 8.0 H Lymphocytes # (Manual) Monocytes % (Manual) 9.0 H Eosinophils % (Manual) Monocytes # (Manual) 1.0 H Eosinophils # (Manual) D-Dimer Heparin Anti-Xa Level ABG pH POC ABG pCO2 POC ABG pO2 ABG pO2 ABG HCO3 ABG O2 Saturation ABG Base Excess ABG Hemoglobin ABG Oxyhemoglobin VBG pH ABG Sodium ABG Potassium ABG Glucose Oxyhemoglobin Sodium Potassium Chloride Carbon Dioxide BUN Creatinine Glucose POC Glucose 132 H Lactic Acid Calcium Ferritin AST Alkaline Phosphatase Magnesium Lactate Dehydrogenase Total Creatine Kinase CK-MB (CK-2) C-Reactive Protein Total Protein Albumin Troponin T HDL Cholesterol Arterial Blood Glucose Urine WBC (Auto) Urine Creatinine Urine Total Protein Coronavirus (PCR) Crossmatch See Detail 07/05/20 07/05/20 07/05/20 13:05 18:04 23:13 WBC RBC 2.57 L Hgb 7.7 L Hct 23.0 L MCHC RDW 16.9 H Lymph % (Auto) [place] % (Auto) Eos % (Auto) Lymph # Mitchell # Lymph # (Auto) Mitchell # (Auto) Seg Neutrophils % Seg Neuts % (Manual) Lymphocytes % (Manual) Seg Neutrophils # Seg Neutrophils # Man Lymphocytes # (Manual) Monocytes % (Manual) Eosinophils % (Manual) Monocytes # (Manual) Eosinophils # (Manual) D-Dimer Heparin Anti-Xa Level ABG pH 7.32 L POC ABG pCO2 POC ABG pO2 ABG pO2 78.3 L ABG HCO3 ABG O2 Saturation ABG Base Excess -2.6 L ABG Hemoglobin 7.3 L ABG Oxyhemoglobin VBG pH ABG Sodium ABG Potassium ABG Glucose Oxyhemoglobin Sodium Potassium Chloride Carbon Dioxide BUN Creatinine Glucose POC Glucose 160 H Lactic Acid Calcium Ferritin AST Alkaline Phosphatase Magnesium Lactate Dehydrogenase Total Creatine Kinase CK-MB (CK-2) C-Reactive Protein Total Protein Albumin Troponin T HDL Cholesterol Arterial Blood Glucose Urine WBC (Auto) Urine Creatinine Urine Total Protein Coronavirus (PCR) Crossmatch 07/05/20 07/05/20 07/06/20 23:13 23:43 13:20 WBC RBC Hgb Hct MCHC RDW Lymph % (Auto) Mitchell % (Auto) Eos % (Auto) Lymph # Mitchell # Lymph # (Auto) Mitchell # (Auto) Seg Neutrophils % Seg Neuts % (Manual) Lymphocytes % (Manual) Seg Neutrophils # Seg Neutrophils # Man Lymphocytes # (Manual) Monocytes % (Manual) Eosinophils % (Manual) Monocytes # (Manual) Eosinophils # (Manual) D-Dimer Heparin Anti-Xa Level ABG pH POC ABG pCO2 POC ABG pO2 ABG pO2 ABG HCO3 ABG O2 Saturation ABG Base Excess ABG Hemoglobin ABG Oxyhemoglobin VBG pH ABG Sodium ABG Potassium ABG Glucose Oxyhemoglobin Sodium Potassium Chloride Carbon Dioxide 20 L BUN 80 H Creatinine 2.4 H D Glucose 124 H POC Glucose 121 H Lactic Acid Calcium 7.6 L Ferritin AST Alkaline Phosphatase Magnesium Lactate Dehydrogenase Total Creatine Kinase CK-MB (CK-2) C-Reactive Protein Total Protein Albumin Troponin T HDL Cholesterol Arterial Blood Glucose Urine WBC (Auto) Urine Creatinine 33.3 H Urine Total Protein Coronavirus (PCR) Crossmatch 07/06/20 07/06/20 07/07/20 14:48 17:28 00:12 WBC RBC Hgb Hct MCHC RDW Lymph % (Auto) Mitchell % (Auto) Eos % (Auto) Lymph # Mitchell # Lymph # (Auto) Mitchell # (Auto) Seg Neutrophils % Seg Neuts % (Manual) Lymphocytes % (Manual) Seg Neutrophils # Seg Neutrophils # Man Lymphocytes # (Manual) Monocytes % (Manual) Eosinophils % (Manual) Monocytes # (Manual) Eosinophils # (Manual) D-Dimer Heparin Anti-Xa Level ABG pH POC ABG pCO2 POC ABG pO2 ABG pO2 ABG HCO3 ABG O2 Saturation ABG Base Excess ABG Hemoglobin ABG Oxyhemoglobin VBG pH ABG Sodium ABG Potassium ABG Glucose Oxyhemoglobin Sodium 136 L Potassium 5.5 H Chloride Carbon Dioxide 19 L BUN 82 H Creatinine 2.5 H Glucose 113 H POC Glucose 133 H 154 H Lactic Acid Calcium 7.7 L Ferritin AST Alkaline Phosphatase Magnesium Lactate Dehydrogenase Total Creatine Kinase CK-MB (CK-2) C-Reactive Protein Total Protein Albumin Troponin T HDL Cholesterol Arterial Blood Glucose Urine WBC (Auto) Urine Creatinine Urine Total Protein Coronavirus (PCR) Crossmatch 07/07/20 07/07/20 07/07/20 04:15 04:15 05:31 WBC RBC 2.28 L Hgb 6.8 L Hct 20.7 L MCHC RDW 16.8 H Lymph % (Auto) Mitchell % (Auto) Eos % (Auto) Lymph # Mitchell # Lymph # (Auto) Mitchell # (Auto) Seg Neutrophils % Seg Neuts % (Manual) Lymphocytes % (Manual) 13.0 L Seg Neutrophils # Seg Neutrophils # Man Lymphocytes # (Manual) 1.0 L Monocytes % (Manual) 11.0 H Eosinophils % (Manual) Monocytes # (Manual) 0.9 H Eosinophils # (Manual) D-Dimer Heparin Anti-Xa Level ABG pH POC ABG pCO2 POC ABG pO2 ABG pO2 ABG HCO3 ABG O2 Saturation ABG Base Excess ABG Hemoglobin ABG Oxyhemoglobin VBG pH ABG Sodium ABG Potassium ABG Glucose Oxyhemoglobin Sodium Potassium Chloride Carbon Dioxide BUN Creatinine Glucose POC Glucose 135 H Lactic Acid Calcium Ferritin AST Alkaline Phosphatase Magnesium 2.50 H Lactate Dehydrogenase Total Creatine Kinase CK-MB (CK-2) C-Reactive Protein Total Protein Albumin Troponin T HDL Cholesterol Arterial Blood Glucose Urine WBC (Auto) Urine Creatinine Urine Total Protein Coronavirus (PCR) Crossmatch 07/07/20 07/07/20 07/07/20 12:31 13:22 17:55 WBC RBC Hgb Hct MCHC RDW Lymph % (Auto) Mitchell % (Auto) Eos % (Auto) Lymph # Mitchell # Lymph # (Auto) Mitchell # (Auto) Seg Neutrophils % Seg Neuts % (Manual) Lymphocytes % (Manual) Seg Neutrophils # Seg Neutrophils # Man Lymphocytes # (Manual) Monocytes % (Manual) Eosinophils % (Manual) Monocytes # (Manual) Eosinophils # (Manual) D-Dimer Heparin Anti-Xa Level ABG pH POC ABG pCO2 POC ABG pO2 ABG pO2 ABG HCO3 ABG O2 Saturation ABG Base Excess ABG Hemoglobin ABG Oxyhemoglobin VBG pH ABG Sodium ABG Potassium ABG Glucose Oxyhemoglobin Sodium Potassium 5.6 H Chloride Carbon Dioxide BUN 86 H Creatinine 2.9 H Glucose 127 H POC Glucose 131 H 136 H Lactic Acid Calcium 8.1 L Ferritin AST Alkaline Phosphatase Magnesium Lactate Dehydrogenase Total Creatine Kinase CK-MB (CK-2) C-Reactive Protein Total Protein Albumin Troponin T HDL Cholesterol Arterial Blood Glucose Urine WBC (Auto) Urine Creatinine Urine Total Protein Coronavirus (PCR) Crossmatch 07/07/20 07/08/20 07/08/20 23:33 04:14 04:14 WBC RBC 3.28 L Hgb 9.7 L Hct 28.9 L D MCHC RDW 16.4 H Lymph % (Auto) 10.3 L Mitchell % (Auto) 10.0 H Eos % (Auto) Lymph # Mitchell # Lymph # (Auto) 1.1 L Mitchell # (Auto) 1.1 H Seg Neutrophils % 77.2 H Seg Neuts % (Manual) Lymphocytes % (Manual) Seg Neutrophils # 8.2 H Seg Neutrophils # Man Lymphocytes # (Manual) Monocytes % (Manual) Eosinophils % (Manual) Monocytes # (Manual) Eosinophils # (Manual) D-Dimer Heparin Anti-Xa Level ABG pH POC ABG pCO2 POC ABG pO2 ABG pO2 ABG HCO3 ABG O2 Saturation ABG Base Excess ABG Hemoglobin ABG Oxyhemoglobin VBG pH ABG Sodium ABG Potassium ABG Glucose Oxyhemoglobin Sodium 136 L Potassium Chloride Carbon Dioxide BUN 84 H Creatinine 2.8 H Glucose 109 H POC Glucose 159 H Lactic Acid Calcium 8.1 L Ferritin AST Alkaline Phosphatase Magnesium 2.50 H Lactate Dehydrogenase Total Creatine Kinase CK-MB (CK-2) C-Reactive Protein Total Protein Albumin Troponin T HDL Cholesterol Arterial Blood Glucose Urine WBC (Auto) Urine Creatinine Urine Total Protein Coronavirus (PCR) Crossmatch 07/08/20 07/08/20 07/08/20 12:10 18:10 23:50 WBC RBC Hgb Hct MCHC RDW Lymph % (Auto) Mitchell % (Auto) Eos % (Auto) Lymph # Mitchell # Lymph # (Auto) Mitchell # (Auto) Seg Neutrophils % Seg Neuts % (Manual) Lymphocytes % (Manual) Seg Neutrophils # Seg Neutrophils # Man Lymphocytes # (Manual) Monocytes % (Manual) Eosinophils % (Manual) Monocytes # (Manual) Eosinophils # (Manual) D-Dimer Heparin Anti-Xa Level ABG pH POC ABG pCO2 POC ABG pO2 ABG pO2 ABG HCO3 ABG O2 Saturation ABG Base Excess ABG Hemoglobin ABG Oxyhemoglobin VBG pH ABG Sodium ABG Potassium ABG Glucose Oxyhemoglobin Sodium Potassium Chloride Carbon Dioxide BUN Creatinine Glucose POC Glucose 108 H 125 H 141 H Lactic Acid Calcium Ferritin AST Alkaline Phosphatase Magnesium Lactate Dehydrogenase Total Creatine Kinase CK-MB (CK-2) C-Reactive Protein Total Protein Albumin Troponin T HDL Cholesterol Arterial Blood Glucose Urine WBC (Auto) Urine Creatinine Urine Total Protein Coronavirus (PCR) Crossmatch 07/09/20 07/09/20 07/09/20 05:39 11:57 17:56 WBC RBC Hgb Hct MCHC RDW Lymph % (Auto) Mitchell % (Auto) Eos % (Auto) Lymph # Mitchell # Lymph # (Auto) Mitchell # (Auto) Seg Neutrophils % Seg Neuts % (Manual) Lymphocytes % (Manual) Seg Neutrophils # Seg Neutrophils # Man Lymphocytes # (Manual) Monocytes % (Manual) Eosinophils % (Manual) Monocytes # (Manual) Eosinophils # (Manual) D-Dimer Heparin Anti-Xa Level ABG pH POC ABG pCO2 POC ABG pO2 ABG pO2 ABG HCO3 ABG O2 Saturation ABG Base Excess ABG Hemoglobin ABG Oxyhemoglobin VBG pH ABG Sodium ABG Potassium ABG Glucose Oxyhemoglobin Sodium Potassium Chloride Carbon Dioxide BUN Creatinine Glucose POC Glucose 121 H 123 H 119 H Lactic Acid Calcium Ferritin AST Alkaline Phosphatase Magnesium Lactate Dehydrogenase Total Creatine Kinase CK-MB (CK-2) C-Reactive Protein Total Protein Albumin Troponin T HDL Cholesterol Arterial Blood Glucose Urine WBC (Auto) Urine Creatinine Urine Total Protein Coronavirus (PCR) Crossmatch 07/10/20 07/10/20 07/10/20 00:29 05:50 10:41 WBC RBC 3.11 L Hgb 9.2 L Hct 27.6 L MCHC RDW 16.6 H Lymph % (Auto) Mitchell % (Auto) Eos % (Auto) Lymph # Mitchell # Lymph # (Auto) Mitchell # (Auto) Seg Neutrophils % Seg Neuts % (Manual) 78.0 H Lymphocytes % (Manual) 11.0 L Seg Neutrophils # Seg Neutrophils # Man Lymphocytes # (Manual) 1.0 L Monocytes % (Manual) Eosinophils % (Manual) Monocytes # (Manual) Eosinophils # (Manual) D-Dimer Heparin Anti-Xa Level ABG pH POC ABG pCO2 POC ABG pO2 ABG pO2 ABG HCO3 ABG O2 Saturation ABG Base Excess ABG Hemoglobin ABG Oxyhemoglobin VBG pH ABG Sodium ABG Potassium ABG Glucose Oxyhemoglobin Sodium Potassium Chloride Carbon Dioxide BUN Creatinine Glucose POC Glucose 122 H 124 H Lactic Acid Calcium Ferritin AST Alkaline Phosphatase Magnesium Lactate Dehydrogenase Total Creatine Kinase CK-MB (CK-2) C-Reactive Protein Total Protein Albumin Troponin T HDL Cholesterol Arterial Blood Glucose Urine WBC (Auto) Urine Creatinine Urine Total Protein Coronavirus (PCR) Crossmatch 07/10/20 07/10/20 07/10/20 10:41 12:25 18:10 WBC RBC Hgb Hct MCHC RDW Lymph % (Auto) Mitchell % (Auto) Eos % (Auto) Lymph # Mitchell # Lymph # (Auto) Mitchell # (Auto) Seg Neutrophils % Seg Neuts % (Manual) Lymphocytes % (Manual) Seg Neutrophils # Seg Neutrophils # Man Lymphocytes # (Manual) Monocytes % (Manual) Eosinophils % (Manual) Monocytes # (Manual) Eosinophils # (Manual) D-Dimer Heparin Anti-Xa Level ABG pH POC ABG pCO2 POC ABG pO2 ABG pO2 ABG HCO3 ABG O2 Saturation ABG Base Excess ABG Hemoglobin ABG Oxyhemoglobin VBG pH ABG Sodium ABG Potassium ABG Glucose Oxyhemoglobin Sodium Potassium Chloride Carbon Dioxide BUN 85 H Creatinine 2.5 H Glucose 133 H POC Glucose 131 H 134 H Lactic Acid Calcium Ferritin AST Alkaline Phosphatase 131 H Magnesium Lactate Dehydrogenase Total Creatine Kinase CK-MB (CK-2) C-Reactive Protein Total Protein 5.2 L Albumin 1.6 L Troponin T HDL Cholesterol Arterial Blood Glucose Urine WBC (Auto) Urine Creatinine Urine Total Protein Coronavirus (PCR) Crossmatch 07/11/20 07/11/20 07/11/20 00:28 05:57 12:14 WBC RBC Hgb Hct MCHC RDW Lymph % (Auto) Mitchell % (Auto) Eos % (Auto) Lymph # Mitchell # Lymph # (Auto) Mitchell # (Auto) Seg Neutrophils % Seg Neuts % (Manual) Lymphocytes % (Manual) Seg Neutrophils # Seg Neutrophils # Man Lymphocytes # (Manual) Monocytes % (Manual) Eosinophils % (Manual) Monocytes # (Manual) Eosinophils # (Manual) D-Dimer Heparin Anti-Xa Level ABG pH POC ABG pCO2 POC ABG pO2 ABG pO2 ABG HCO3 ABG O2 Saturation ABG Base Excess ABG Hemoglobin ABG Oxyhemoglobin VBG pH ABG Sodium ABG Potassium ABG Glucose Oxyhemoglobin Sodium Potassium Chloride Carbon Dioxide BUN Creatinine Glucose POC Glucose 140 H 148 H 147 H Lactic Acid Calcium Ferritin AST Alkaline Phosphatase Magnesium Lactate Dehydrogenase Total Creatine Kinase CK-MB (CK-2) C-Reactive Protein Total Protein Albumin Troponin T HDL Cholesterol Arterial Blood Glucose Urine WBC (Auto) Urine Creatinine Urine Total Protein Coronavirus (PCR) Crossmatch 07/11/20 07/11/20 07/12/20 17:28 23:49 05:14 WBC RBC 2.78 L Hgb 8.5 L Hct 25.3 L MCHC RDW 16.7 H Lymph % (Auto) Mitchell % (Auto) Eos % (Auto) Lymph # Mitchell # Lymph # (Auto) Mitchell # (Auto) Seg Neutrophils % Seg Neuts % (Manual) 81.0 H Lymphocytes % (Manual) 6.0 L Seg Neutrophils # Seg Neutrophils # Man Lymphocytes # (Manual) 0.6 L Monocytes % (Manual) 8.0 H Eosinophils % (Manual) Monocytes # (Manual) Eosinophils # (Manual) D-Dimer Heparin Anti-Xa Level ABG pH POC ABG pCO2 POC ABG pO2 ABG pO2 ABG HCO3 ABG O2 Saturation ABG Base Excess ABG Hemoglobin ABG Oxyhemoglobin VBG pH ABG Sodium ABG Potassium ABG Glucose Oxyhemoglobin Sodium Potassium Chloride Carbon Dioxide BUN Creatinine Glucose POC Glucose 175 H 114 H Lactic Acid Calcium Ferritin AST Alkaline Phosphatase Magnesium Lactate Dehydrogenase Total Creatine Kinase CK-MB (CK-2) C-Reactive Protein Total Protein Albumin Troponin T HDL Cholesterol Arterial Blood Glucose Urine WBC (Auto) Urine Creatinine Urine Total Protein Coronavirus (PCR) Crossmatch 07/12/20 07/12/20 07/12/20 05:14 05:44 11:32 WBC RBC Hgb Hct MCHC RDW Lymph % (Auto) Mitchell % (Auto) Eos % (Auto) Lymph # Mitchell # Lymph # (Auto) Mitchell # (Auto) Seg Neutrophils % Seg Neuts % (Manual) Lymphocytes % (Manual) Seg Neutrophils # Seg Neutrophils # Man Lymphocytes # (Manual) Monocytes % (Manual) Eosinophils % (Manual) Monocytes # (Manual) Eosinophils # (Manual) D-Dimer Heparin Anti-Xa Level ABG pH POC ABG pCO2 POC ABG pO2 ABG pO2 ABG HCO3 ABG O2 Saturation ABG Base Excess ABG Hemoglobin ABG Oxyhemoglobin VBG pH ABG Sodium ABG Potassium ABG Glucose Oxyhemoglobin Sodium Potassium Chloride Carbon Dioxide BUN 79 H Creatinine 2.2 H Glucose 131 H POC Glucose 116 H 132 H Lactic Acid Calcium Ferritin AST Alkaline Phosphatase Magnesium Lactate Dehydrogenase Total Creatine Kinase CK-MB (CK-2) C-Reactive Protein Total Protein Albumin Troponin T HDL Cholesterol Arterial Blood Glucose Urine WBC (Auto) Urine Creatinine Urine Total Protein Coronavirus (PCR) Crossmatch 07/12/20 07/13/20 07/13/20 17:53 00:18 04:53 WBC RBC 2.86 L Hgb 8.4 L Hct 25.7 L MCHC RDW 16.8 H Lymph % (Auto) Mitchell % (Auto) Eos % (Auto) Lymph # Mitchell # Lymph # (Auto) Mitchell # (Auto) Seg Neutrophils % Seg Neuts % (Manual) 84.0 H Lymphocytes % (Manual) 7.0 L Seg Neutrophils # Seg Neutrophils # Man Lymphocytes # (Manual) 0.6 L Monocytes % (Manual) Eosinophils % (Manual) Monocytes # (Manual) Eosinophils # (Manual) D-Dimer Heparin Anti-Xa Level ABG pH POC ABG pCO2 POC ABG pO2 ABG pO2 ABG HCO3 ABG O2 Saturation ABG Base Excess ABG Hemoglobin ABG Oxyhemoglobin VBG pH ABG Sodium ABG Potassium ABG Glucose Oxyhemoglobin Sodium Potassium Chloride Carbon Dioxide BUN Creatinine Glucose POC Glucose 155 H 162 H Lactic Acid Calcium Ferritin AST Alkaline Phosphatase Magnesium Lactate Dehydrogenase Total Creatine Kinase CK-MB (CK-2) C-Reactive Protein Total Protein Albumin Troponin T HDL Cholesterol Arterial Blood Glucose Urine WBC (Auto) Urine Creatinine Urine Total Protein Coronavirus (PCR) Crossmatch 07/13/20 07/13/20 07/13/20 04:53 06:14 12:50 WBC RBC Hgb Hct MCHC RDW Lymph % (Auto) Mitchell % (Auto) Eos % (Auto) Lymph # Mitchell # Lymph # (Auto) Mitchell # (Auto) Seg Neutrophils % Seg Neuts % (Manual) Lymphocytes % (Manual) Seg Neutrophils # Seg Neutrophils # Man Lymphocytes # (Manual) Monocytes % (Manual) Eosinophils % (Manual) Monocytes # (Manual) Eosinophils # (Manual) D-Dimer Heparin Anti-Xa Level ABG pH POC ABG pCO2 POC ABG pO2 ABG pO2 ABG HCO3 ABG O2 Saturation ABG Base Excess ABG Hemoglobin ABG Oxyhemoglobin VBG pH ABG Sodium ABG Potassium ABG Glucose Oxyhemoglobin Sodium 136 L Potassium Chloride Carbon Dioxide BUN 78 H Creatinine 2.0 H Glucose 130 H POC Glucose 141 H 146 H Lactic Acid Calcium Ferritin AST Alkaline Phosphatase Magnesium Lactate Dehydrogenase Total Creatine Kinase CK-MB (CK-2) C-Reactive Protein Total Protein Albumin Troponin T HDL Cholesterol Arterial Blood Glucose Urine WBC (Auto) Urine Creatinine Urine Total Protein Coronavirus (PCR) Crossmatch 07/13/20 07/14/20 07/14/20 18:27 00:22 05:43 WBC RBC Hgb Hct MCHC RDW Lymph % (Auto) Mitchell % (Auto) Eos % (Auto) Lymph # Mitchell # Lymph # (Auto) Mitchell # (Auto) Seg Neutrophils % Seg Neuts % (Manual) Lymphocytes % (Manual) Seg Neutrophils # Seg Neutrophils # Man Lymphocytes # (Manual) Monocytes % (Manual) Eosinophils % (Manual) Monocytes # (Manual) Eosinophils # (Manual) D-Dimer Heparin Anti-Xa Level ABG pH POC ABG pCO2 POC ABG pO2 ABG pO2 ABG HCO3 ABG O2 Saturation ABG Base Excess ABG Hemoglobin ABG Oxyhemoglobin VBG pH ABG Sodium ABG Potassium ABG Glucose Oxyhemoglobin Sodium Potassium Chloride Carbon Dioxide BUN Creatinine Glucose POC Glucose 149 H 157 H 169 H Lactic Acid Calcium Ferritin AST Alkaline Phosphatase Magnesium Lactate Dehydrogenase Total Creatine Kinase CK-MB (CK-2) C-Reactive Protein Total Protein Albumin Troponin T HDL Cholesterol Arterial Blood Glucose Urine WBC (Auto) Urine Creatinine Urine Total Protein Coronavirus (PCR) Crossmatch 07/14/20 07/14/20 07/14/20 08:04 12:12 17:23 WBC RBC Hgb Hct MCHC RDW Lymph % (Auto) Mitchell % (Auto) Eos % (Auto) Lymph # Mitchell # Lymph # (Auto) Mitchell # (Auto) Seg Neutrophils % Seg Neuts % (Manual) Lymphocytes % (Manual) Seg Neutrophils # Seg Neutrophils # Man Lymphocytes # (Manual) Monocytes % (Manual) Eosinophils % (Manual) Monocytes # (Manual) Eosinophils # (Manual) D-Dimer Heparin Anti-Xa Level ABG pH POC ABG pCO2 POC ABG pO2 ABG pO2 ABG HCO3 ABG O2 Saturation ABG Base Excess ABG Hemoglobin ABG Oxyhemoglobin VBG pH ABG Sodium ABG Potassium ABG Glucose Oxyhemoglobin Sodium Potassium Chloride Carbon Dioxide BUN Creatinine Glucose POC Glucose 185 H 138 H Lactic Acid Calcium Ferritin AST Alkaline Phosphatase Magnesium Lactate Dehydrogenase Total Creatine Kinase CK-MB (CK-2) C-Reactive Protein Total Protein Albumin Troponin T HDL Cholesterol Arterial Blood Glucose Urine WBC (Auto) Urine Creatinine Urine Total Protein Coronavirus (PCR) Positive A Crossmatch 07/15/20 07/15/20 07/15/20 00:04 06:06 12:00 WBC RBC Hgb Hct MCHC RDW Lymph % (Auto) Mitchell % (Auto) Eos % (Auto) Lymph # Mitchell # Lymph # (Auto) Mitchell # (Auto) Seg Neutrophils % Seg Neuts % (Manual) Lymphocytes % (Manual) Seg Neutrophils # Seg Neutrophils # Man Lymphocytes # (Manual) Monocytes % (Manual) Eosinophils % (Manual) Monocytes # (Manual) Eosinophils # (Manual) D-Dimer Heparin Anti-Xa Level ABG pH POC ABG pCO2 POC ABG pO2 ABG pO2 ABG HCO3 ABG O2 Saturation ABG Base Excess ABG Hemoglobin ABG Oxyhemoglobin VBG pH ABG Sodium ABG Potassium ABG Glucose Oxyhemoglobin Sodium Potassium Chloride Carbon Dioxide BUN Creatinine Glucose POC Glucose 121 H 140 H 137 H Lactic Acid Calcium Ferritin AST Alkaline Phosphatase Magnesium Lactate Dehydrogenase Total Creatine Kinase CK-MB (CK-2) C-Reactive Protein Total Protein Albumin Troponin T HDL Cholesterol Arterial Blood Glucose Urine WBC (Auto) Urine Creatinine Urine Total Protein Coronavirus (PCR) Crossmatch 07/15/20 07/15/20 07/16/20 17:53 23:53 05:26 WBC RBC Hgb Hct MCHC RDW Lymph % (Auto) Mitchell % (Auto) Eos % (Auto) Lymph # Mitchell # Lymph # (Auto) Mitchell # (Auto) Seg Neutrophils % Seg Neuts % (Manual) Lymphocytes % (Manual) Seg Neutrophils # Seg Neutrophils # Man Lymphocytes # (Manual) Monocytes % (Manual) Eosinophils % (Manual) Monocytes # (Manual) Eosinophils # (Manual) D-Dimer Heparin Anti-Xa Level ABG pH POC ABG pCO2 POC ABG pO2 ABG pO2 ABG HCO3 ABG O2 Saturation ABG Base Excess ABG Hemoglobin ABG Oxyhemoglobin VBG pH ABG Sodium ABG Potassium ABG Glucose Oxyhemoglobin Sodium Potassium Chloride Carbon Dioxide BUN Creatinine Glucose POC Glucose 161 H 156 H 152 H Lactic Acid Calcium Ferritin AST Alkaline Phosphatase Magnesium Lactate Dehydrogenase Total Creatine Kinase CK-MB (CK-2) C-Reactive Protein Total Protein Albumin Troponin T HDL Cholesterol Arterial Blood Glucose Urine WBC (Auto) Urine Creatinine Urine Total Protein Coronavirus (PCR) Crossmatch 07/16/20 07/17/20 07/17/20 17:44 00:07 12:06 WBC RBC Hgb Hct MCHC RDW Lymph % (Auto) Mitchell % (Auto) Eos % (Auto) Lymph # Mitchell # Lymph # (Auto) Mitchell # (Auto) Seg Neutrophils % Seg Neuts % (Manual) Lymphocytes % (Manual) Seg Neutrophils # Seg Neutrophils # Man Lymphocytes # (Manual) Monocytes % (Manual) Eosinophils % (Manual) Monocytes # (Manual) Eosinophils # (Manual) D-Dimer Heparin Anti-Xa Level ABG pH POC ABG pCO2 POC ABG pO2 ABG pO2 ABG HCO3 ABG O2 Saturation ABG Base Excess ABG Hemoglobin ABG Oxyhemoglobin VBG pH ABG Sodium ABG Potassium ABG Glucose Oxyhemoglobin Sodium Potassium Chloride Carbon Dioxide BUN Creatinine Glucose POC Glucose 126 H 189 H 155 H Lactic Acid Calcium Ferritin AST Alkaline Phosphatase Magnesium Lactate Dehydrogenase Total Creatine Kinase CK-MB (CK-2) C-Reactive Protein Total Protein Albumin Troponin T HDL Cholesterol Arterial Blood Glucose Urine WBC (Auto) Urine Creatinine Urine Total Protein Coronavirus (PCR) Crossmatch 07/17/20 07/17/20 07/18/20 18:20 23:25 04:24 WBC RBC Hgb Hct MCHC RDW Lymph % (Auto) Mitchell % (Auto) Eos % (Auto) Lymph # Mitchell # Lymph # (Auto) Mitchell # (Auto) Seg Neutrophils % Seg Neuts % (Manual) Lymphocytes % (Manual) Seg Neutrophils # Seg Neutrophils # Man Lymphocytes # (Manual) Monocytes % (Manual) Eosinophils % (Manual) Monocytes # (Manual) Eosinophils # (Manual) D-Dimer Heparin Anti-Xa Level ABG pH POC ABG pCO2 POC ABG pO2 ABG pO2 ABG HCO3 ABG O2 Saturation ABG Base Excess ABG Hemoglobin 8.8 L ABG Oxyhemoglobin VBG pH ABG Sodium 131.6 L ABG Potassium 4.9 H ABG Glucose 131 H Oxyhemoglobin Sodium Potassium Chloride Carbon Dioxide BUN Creatinine Glucose POC Glucose 206 H 161 H Lactic Acid Calcium Ferritin AST Alkaline Phosphatase Magnesium Lactate Dehydrogenase Total Creatine Kinase CK-MB (CK-2) C-Reactive Protein Total Protein Albumin Troponin T HDL Cholesterol Arterial Blood Glucose 131 H Urine WBC (Auto) Urine Creatinine Urine Total Protein Coronavirus (PCR) Crossmatch 07/18/20 07/18/20 07/18/20 05:16 11:53 18:11 WBC RBC Hgb Hct MCHC RDW Lymph % (Auto) Mitchell % (Auto) Eos % (Auto) Lymph # Mitchell # Lymph # (Auto) Mitchell # (Auto) Seg Neutrophils % Seg Neuts % (Manual) Lymphocytes % (Manual) Seg Neutrophils # Seg Neutrophils # Man Lymphocytes # (Manual) Monocytes % (Manual) Eosinophils % (Manual) Monocytes # (Manual) Eosinophils # (Manual) D-Dimer Heparin Anti-Xa Level ABG pH POC ABG pCO2 POC ABG pO2 ABG pO2 ABG HCO3 ABG O2 Saturation ABG Base Excess ABG Hemoglobin ABG Oxyhemoglobin VBG pH ABG Sodium ABG Potassium ABG Glucose Oxyhemoglobin Sodium Potassium Chloride Carbon Dioxide BUN Creatinine Glucose POC Glucose 140 H 176 H 143 H Lactic Acid Calcium Ferritin AST Alkaline Phosphatase Magnesium Lactate Dehydrogenase Total Creatine Kinase CK-MB (CK-2) C-Reactive Protein Total Protein Albumin Troponin T HDL Cholesterol Arterial Blood Glucose Urine WBC (Auto) Urine Creatinine Urine Total Protein Coronavirus (PCR) Crossmatch 07/18/20 07/19/20 07/19/20 23:51 01:05 01:05 WBC RBC 2.76 L Hgb 7.9 L Hct 24.5 L MCHC RDW 17.6 H Lymph % (Auto) 11.6 L [place] % (Auto) 13.1 H Eos % (Auto) Lymph # Mitchell # Lymph # (Auto) 1.0 L Mitchell # (Auto) 1.1 H Seg Neutrophils % 70.9 H Seg Neuts % (Manual) Lymphocytes % (Manual) Seg Neutrophils # Seg Neutrophils # Man Lymphocytes # (Manual) Monocytes % (Manual) Eosinophils % (Manual) Monocytes # (Manual) Eosinophils # (Manual) D-Dimer Heparin Anti-Xa Level ABG pH POC ABG pCO2 POC ABG pO2 ABG pO2 ABG HCO3 ABG O2 Saturation ABG Base Excess ABG Hemoglobin ABG Oxyhemoglobin VBG pH ABG Sodium ABG Potassium ABG Glucose Oxyhemoglobin Sodium Potassium Chloride Carbon Dioxide BUN 86 H Creatinine 1.7 H Glucose 149 H POC Glucose 159 H Lactic Acid Calcium Ferritin AST Alkaline Phosphatase Magnesium Lactate Dehydrogenase Total Creatine Kinase CK-MB (CK-2) C-Reactive Protein Total Protein Albumin Troponin T HDL Cholesterol Arterial Blood Glucose Urine WBC (Auto) Urine Creatinine Urine Total Protein Coronavirus (PCR) Crossmatch 07/19/20 07/19/20 07/19/20 05:54 12:46 17:48 WBC RBC Hgb Hct MCHC RDW Lymph % (Auto) [place] % (Auto) Eos % (Auto) Lymph # Mitchell # Lymph # (Auto) Mitchell # (Auto) Seg Neutrophils % Seg Neuts % (Manual) Lymphocytes % (Manual) Seg Neutrophils # Seg Neutrophils # Man Lymphocytes # (Manual) Monocytes % (Manual) Eosinophils % (Manual) Monocytes # (Manual) Eosinophils # (Manual) D-Dimer Heparin Anti-Xa Level ABG pH POC ABG pCO2 POC ABG pO2 ABG pO2 ABG HCO3 ABG O2 Saturation ABG Base Excess ABG Hemoglobin ABG Oxyhemoglobin VBG pH ABG Sodium ABG Potassium ABG Glucose Oxyhemoglobin Sodium Potassium Chloride Carbon Dioxide BUN Creatinine Glucose POC Glucose 176 H 127 H 123 H Lactic Acid Calcium Ferritin AST Alkaline Phosphatase Magnesium Lactate Dehydrogenase Total Creatine Kinase CK-MB (CK-2) C-Reactive Protein Total Protein Albumin Troponin T HDL Cholesterol Arterial Blood Glucose Urine WBC (Auto) Urine Creatinine Urine Total Protein Coronavirus (PCR) Crossmatch 07/20/20 07/20/20 07/20/20 00:34 05:28 12:10 WBC RBC Hgb Hct MCHC RDW Lymph % (Auto) Mitchell % (Auto) Eos % (Auto) Lymph # Mitchell # Lymph # (Auto) Mitchell # (Auto) Seg Neutrophils % Seg Neuts % (Manual) Lymphocytes % (Manual) Seg Neutrophils # Seg Neutrophils # Man Lymphocytes # (Manual) Monocytes % (Manual) Eosinophils % (Manual) Monocytes # (Manual) Eosinophils # (Manual) D-Dimer Heparin Anti-Xa Level ABG pH POC ABG pCO2 POC ABG pO2 ABG pO2 ABG HCO3 ABG O2 Saturation ABG Base Excess ABG Hemoglobin ABG Oxyhemoglobin VBG pH ABG Sodium ABG Potassium ABG Glucose Oxyhemoglobin Sodium Potassium Chloride Carbon Dioxide BUN Creatinine Glucose POC Glucose 147 H 110 H 149 H Lactic Acid Calcium Ferritin AST Alkaline Phosphatase Magnesium Lactate Dehydrogenase Total Creatine Kinase CK-MB (CK-2) C-Reactive Protein Total Protein Albumin Troponin T HDL Cholesterol Arterial Blood Glucose Urine WBC (Auto) Urine Creatinine Urine Total Protein Coronavirus (PCR) Crossmatch 07/20/20 07/21/20 07/21/20 17:00 00:11 05:30 WBC RBC Hgb Hct MCHC RDW Lymph % (Auto) [place] % (Auto) Eos % (Auto) Lymph # Mitchell # Lymph # (Auto) Mitchell # (Auto) Seg Neutrophils % Seg Neuts % (Manual) Lymphocytes % (Manual) Seg Neutrophils # Seg Neutrophils # Man Lymphocytes # (Manual) Monocytes % (Manual) Eosinophils % (Manual) Monocytes # (Manual) Eosinophils # (Manual) D-Dimer Heparin Anti-Xa Level ABG pH POC ABG pCO2 POC ABG pO2 ABG pO2 ABG HCO3 ABG O2 Saturation ABG Base Excess ABG Hemoglobin ABG Oxyhemoglobin VBG pH ABG Sodium ABG Potassium ABG Glucose Oxyhemoglobin Sodium Potassium Chloride Carbon Dioxide BUN Creatinine Glucose POC Glucose 173 H 128 H 153 H Lactic Acid Calcium Ferritin AST Alkaline Phosphatase Magnesium Lactate Dehydrogenase Total Creatine Kinase CK-MB (CK-2) C-Reactive Protein Total Protein Albumin Troponin T HDL Cholesterol Arterial Blood Glucose Urine WBC (Auto) Urine Creatinine Urine Total Protein Coronavirus (PCR) Crossmatch 07/21/20 07/21/20 07/22/20 12:21 18:17 00:45 WBC RBC Hgb Hct MCHC RDW Lymph % (Auto) Mitchell % (Auto) Eos % (Auto) Lymph # Mitchell # Lymph # (Auto) Mitchell # (Auto) Seg Neutrophils % Seg Neuts % (Manual) Lymphocytes % (Manual) Seg Neutrophils # Seg Neutrophils # Man Lymphocytes # (Manual) Monocytes % (Manual) Eosinophils % (Manual) Monocytes # (Manual) Eosinophils # (Manual) D-Dimer Heparin Anti-Xa Level ABG pH POC ABG pCO2 POC ABG pO2 ABG pO2 ABG HCO3 ABG O2 Saturation ABG Base Excess ABG Hemoglobin ABG Oxyhemoglobin VBG pH ABG Sodium ABG Potassium ABG Glucose Oxyhemoglobin Sodium Potassium Chloride Carbon Dioxide BUN Creatinine Glucose POC Glucose 144 H 160 H 128 H Lactic Acid Calcium Ferritin AST Alkaline Phosphatase Magnesium Lactate Dehydrogenase Total Creatine Kinase CK-MB (CK-2) C-Reactive Protein Total Protein Albumin Troponin T HDL Cholesterol Arterial Blood Glucose Urine WBC (Auto) Urine Creatinine Urine Total Protein Coronavirus (PCR) Crossmatch 07/22/20 07/22/20 07/22/20 05:52 12:03 18:23 WBC RBC Hgb Hct MCHC RDW Lymph % (Auto) Mitchell % (Auto) Eos % (Auto) Lymph # Mitchell # Lymph # (Auto) Mitchell # (Auto) Seg Neutrophils % Seg Neuts % (Manual) Lymphocytes % (Manual) Seg Neutrophils # Seg Neutrophils # Man Lymphocytes # (Manual) Monocytes % (Manual) Eosinophils % (Manual) Monocytes # (Manual) Eosinophils # (Manual) D-Dimer Heparin Anti-Xa Level ABG pH POC ABG pCO2 POC ABG pO2 ABG pO2 ABG HCO3 ABG O2 Saturation ABG Base Excess ABG Hemoglobin ABG Oxyhemoglobin VBG pH ABG Sodium ABG Potassium ABG Glucose Oxyhemoglobin Sodium Potassium Chloride Carbon Dioxide BUN Creatinine Glucose POC Glucose 126 H 157 H 152 H Lactic Acid Calcium Ferritin AST Alkaline Phosphatase Magnesium Lactate Dehydrogenase Total Creatine Kinase CK-MB (CK-2) C-Reactive Protein Total Protein Albumin Troponin T HDL Cholesterol Arterial Blood Glucose Urine WBC (Auto) Urine Creatinine Urine Total Protein Coronavirus (PCR) Crossmatch 07/22/20 07/23/20 23:20 06:06 WBC RBC Hgb Hct MCHC RDW Lymph % (Auto) Mitchell % (Auto) Eos % (Auto) Lymph # Mitchell # Lymph # (Auto) Mitchell # (Auto) Seg Neutrophils % Seg Neuts % (Manual) Lymphocytes % (Manual) Seg Neutrophils # Seg Neutrophils # Man Lymphocytes # (Manual) Monocytes % (Manual) Eosinophils % (Manual) Monocytes # (Manual) Eosinophils # (Manual) D-Dimer Heparin Anti-Xa Level ABG pH POC ABG pCO2 POC ABG pO2 ABG pO2 ABG HCO3 ABG O2 Saturation ABG Base Excess ABG Hemoglobin ABG Oxyhemoglobin VBG pH ABG Sodium ABG Potassium ABG Glucose Oxyhemoglobin Sodium Potassium Chloride Carbon Dioxide BUN Creatinine Glucose POC Glucose 122 H 143 H Lactic Acid Calcium Ferritin AST Alkaline Phosphatase Magnesium Lactate Dehydrogenase Total Creatine Kinase CK-MB (CK-2) C-Reactive Protein Total Protein Albumin Troponin T HDL Cholesterol Arterial Blood Glucose Urine WBC (Auto) Urine Creatinine Urine Total Protein Coronavirus (PCR) Crossmatch
[2020-07-23] MEDS ORDERED: PHENYTOIN 100 MG/2 ML VIAL IV SCH ×2 (14:00)
[2020-07-23] MEDS ORDERED: SODIUM CHLORIDE IV ONE (14:00)
[2020-07-23] MEDS ORDERED: FOSPHENYTOIN IV ONE (14:00)
[2020-07-23] MEDS ORDERED: [UNRECOGNIZED DRUG - OTHER] IV ONE (14:00)
[2020-07-23] MEDS ORDERED: SODIUM CHLORIDE 0.9% 250ML 250 ML IV ONE (14:15)
[2020-07-23] MEDS ORDERED: SODIUM CHLORIDE 0.9% 1000 ML 500 ML IV ONE (17:00)
[2020-07-23] MEDS ORDERED: SODIUM CHLORIDE 0.9% 1000 ML 1,000 ML IV ONE (19:23)
[2020-07-23] MEDS ORDERED: SODIUM CHLORIDE 0.9% 1000 ML 250 ML IV ONE (19:30)
[2020-07-23 20:09] LABS: Albumin 2.2 g/dL (3.9-5); Calcium 8.9 mg/dL (8.4-10.2)
[2020-07-23] MEDS: NORepinephrine/NS 4 MG-250 ML 4 MG/250 ML BAG IV SCH (20:11)
[2020-07-23] MEDS ORDERED: CALCIUM GLUCONATE 1,000 MG in SODIUM CHLORIDE 0.9% 100 ML IV ONE (21:30)
[2020-07-23] MEDS ORDERED: SODIUM POLYSTYRENE 15 GM/60 ML ORAL LIQD PO ONE (21:30)
[2020-07-23] MEDS: PHENYTOIN IV SCH (23:00)
[2020-07-23] MEDS: SODIUM CHLORIDE 0.9% IV SCH (23:00)
[2020-07-23] MEDS: INSULIN GLARGINE 100 UNITS/ML SUB-Q SCH (23:05)
[2020-07-24 05:22] LABS: Basophils # (Auto) 0.1 K/mm3 (0.0-0.1); Basophils % (Auto) 0.8 % (0.0-1.8); Eosinophils # (Auto) 0.5 K/mm3 (0.0-0.4); Eosinophils % (Auto) 5.9 % (0.0-4.3); Hematocrit 22.8 % (30.3-42.9); Hemoglobin 7.5 gm/dl (10.1-14.3); Lymphocytes # (Auto) 0.8 K/mm3 (1.2-5.4); Lymphocytes % (Auto) 9.4 % (13.4-35.0); Mean Corpuscular HGB Conc 33 % (30-34); Mean Corpuscular Volume 90 fl (79-97); Monocytes # (Auto) 0.9 K/mm3 (0.0-0.8); Monocytes % (Auto) 10.4 % (0.0-7.3); Platelet Count 350 K/mm3 (140-440); Red Blood Count 2.53 M/mm3 (3.65-5.03); Red Cell Distribution Width 16.8 % (13.2-15.2)
[2020-07-24 05:37] LABS: Calcium 8.6 mg/dL (8.4-10.2)
[2020-07-24] MEDS: HEPARIN 5,000 UNIT/1 ML VIAL SUB-Q SCH ×4 (06:26→21:14)
[2020-07-24] MEDS: SODIUM CHLORIDE 0.9% IV SCH ×3 (06:27→21:59)
[2020-07-24] MEDS: PHENYTOIN IV SCH ×3 (06:27→21:59)
[2020-07-24] MEDS: INSULIN LISPRO 100 UNIT/ML VIAL 3 mL SUB-Q SCH ×3 (07:25→17:58)
[2020-07-24] MEDS: GLYCOPYRROLATE 2 MG TAB PO SCH ×3 (08:10→20:49)
[2020-07-24] MEDS: hydrALAZINE 100 MG TAB PO SCH ×3 (08:14→20:12)
--- NOTE | 2020-07-24 08:16 | Progress Note ---
Assessment and Plan Assessment and plan: 64 YO Female with a medical history of HTN, Diastolic CHF, Pulmonary HTN, DM, Obesity Hypoventilation Syndrome presents to ED for evaluation of shortness of breath. As per staff, the EMS was notified for difficulty breathing. Upon arrival to the patient's home the patient was found to be in distress and was subsequently transported to [facility] for further evaluation and care. In route to [facility] the patient developed cardiac arrest and was treated in accordance with ACLS protocol with return of ROSC. Patient was seen and evaluated in the emergency department and was intubated and placed on ventilatory support. Patient admitted to ICU. Critical care team consulted in ED. She was found to have COVID-19 infection and was started on steroids and remdesivir. ID was consulted. Cardiology was consulted for her systolic heart failure and cardiac arrest. Patient completed treatment for COVID-19, then develop superimposed bacterial pneumonia with Klebsiella. She is now extubated, 06/12/2020 but remains confused and requiring high flow O2 and intermittent BiPAP. Patient had another cardiac arrest reintubated 06/26/2020, currently in ICU vent dependent, unable to do trach and PEG due to persistent COVID-19 positive state, as well as anoxic brain injury, unable to get MRI , neurology following. Assessment and plan: 05/28/2020 COVID-19 test positive 06/29/2020 COVID-19 test positive 07/14/2020 COVID-19 test positive --Acute hypoxemic respiratory failure; vent dependent intubated on admission, extubated on 06/12/20 then placed on high flow o2 patient developed another respiratory arrest on 06/26 - reintubated Patient not tolerating weaning parameters CC following, Surgery evaluated the patient for trach and PEG COVID-19 test positive x3, trach and PEG pending neuro evaluation to evaluate severity of anoxic brain injury -- Hypertension; well controlled Increase hydralazine dose to 75 mg 3 times a day Continue amlodipine, coreg, clonidine and hydralazine And minoxidil, closely monitor blood pressures PRN labetalol --s/p cardiopulmonary arrest on admission, 06/26 and 07/01, s/p CPR per ACLS protocol, refer to code sheet --Possible anoxic brain injury, neurology consulted, neuro requested MRI brain, EEG MRI brain could not be done due to body habitus, EEG not done --Seizures seizure precautions; continue Keppra, follow EEG neurology following --Acute renal failure : creatinine 2.4-2.5-2.9-1.7 --Acute renal failure : creatinine 2.4-2.5-2.9-1.7 Vasomotor nephropathy, gentle hydration Avoid nephrotoxins, monitor renal function Reconsult nephrology if needed --Rectal bleeding; resolved --Acute blood loss anemia; total 3 units PRBC transfused Closely monitor H&H, GI following, no plans of endoscopy --Severe sepsis; completed antibiotics per ID persistently positive for COVID-19 and Klebsiella pneumoniae --COVID-19 b/l PNA Completed remdesivir on 06/02 Completed dexamethasone - Last dose 06/07 COVID 19 test positive x 3 during this admission --Superficial left cephalic vein DVT/elevated D-dimers[COVID 19] Patient initially started on heparin drip from 05/29/20 D-dimers improved [id number] treated with Eliquis 5 mg twice a day for 1 week[per ID] stop date 06/26/2020 -- Acute toxic metabolic encephalopathy, POA likely from sepsis and s/p cardiac arrest with possible anoxic injury -- Acute renal failure: likely ATN avoid nephrotoxins, reconsult nephrology if no improvement --Klebsiella pneumonia: ID evaluated completed second round of 5 days of cefepime on 07/04/2020 --Acute on chronic systolic heart failure Cardiology following. Ef 45% -- Coffee ground emesis -Stress ulcers Possible stress ulcers, On PPI H/H again dropped - transfuse GI evaluated --Transaminitis. Etiology likely from COVID-19. cont to monitor --Hyperkalemia; calcium gluconate, Kayexalate, monitor electrolytes --Shock; fluid bolus, Levophed per protocol Patient critically ill poor prognosis -- DVT prophylaxis Eliquis, SCD to bilateral lower extremities while in bed -- Advance care planning Patient is critically ill with multiple medical problems Poor prognosis, family updated and requesting full code The high probability of a clinically significant, sudden or life threatening deterioration of the [CVS, renal, respiratory, CAREER RESOURCE TECHNICIAN] system(s) required my full and direct attention, intervention and personal management. The aggregate critical care time was [35] minutes. This time is in addition to time spent performing reported procedures but includes the following: [x] Data Review and interpretation [x] Patient assessment and monitoring of vital signs [x] Documentation [x] Medication orders and management 07/11/2020. Patient currently on mechanical ventilation AC/PRVC with rate of 12, tidal volume 450, FiO2 30% and PEEP of 6 07/12/2020. Patient placed on CPAP with pressure support of 10 and tolerating well. Continue PSB trials as tolerated. 07/13/2020. Patient currently with AC mode rate 12, tidal volume 450, FiO2 30% and PEEP of 6. Surgery has been consulted for trach and PEG placement. Recall nephrology for renal insufficiency. 07/14/20; surgery evaluated for trach and PEG , pending call with test which is is positive today COVID-19 test positive x3 since admission 07/16; trach and PEG pending neuro evaluation 07/17; vent dependent, trach PEG pending neuro evaluation, pending MRI EEG study[already ordered] 07/18; unable to do MRI, due to body habitus, morbid obesity, radiology consult Patient critically ill very poor prognosis 07/19; remains intubated on vent, clinically no change 07/20; unable to wean, needs trach and PEG, need MRI , unable to do due to body habitus 07/21; clinically no change, remains intubated on ventilatory support 07/22; I recommend family meeting, to discuss the goals of treatment, discussed with case management 07/23; patient's blood pressures in the lower range, will hold antihypertensives, fluid bolus, if no improvement Levophed per protocol 07/24: Patient remains critically ill, unable to obtain MRI at this facility and unstable for transfer, Will reconsult Nephrology as creatinine now worse, with worsening Hypotension and Hyperkalemia- Overnight the patient required pressors Secondary to Hypotension, Will place PICC line. Will give kayxalate, continue to hold all BP meds. Hyponatermia improving. Disposition; recommend family conference to decide the goals of treatment, prognosis, CODE STATUS. History Interval history: Patient seen and examined, no clinical change Hospitalist Physical - Physical exam Narrative exam: General appearance: Present: no acute distress, well-nourished, obese (Morbidly obese), other (Intubated on ventilatory support) - EENT Eyes: Present: PERRL, EOM intact - Neck Neck: Present: supple. Absent: enlarged thyroid - Respiratory Respiratory effort: normal Respiratory: bilateral: diminished, rhonchi, negative: rales, wheezing - Cardiovascular Rhythm: regular Heart Sounds: Present: S1 & S2 - Extremities Extremities: no ischemia Extremity abnormal: edema - Abdominal General gastrointestinal: soft, non-tender, non-distended, normal bowel sounds - Integumentary Integumentary: Present: clear, warm - Psychiatric Psychiatric: other (Intubated on vent) - Neurologic Neurologic: other (Intubated on vent) - Constitutional Vitals: Temp Pulse Resp BP Pulse Ox 98 F 59 L 16 128/42 96 07/24/20 04:00 07/24/20 07:00 07/24/20 07:00 07/24/20 07:00 07/24/20 07:00 General appearance: Present: no acute distress, well-nourished, obese (Morbidly obese), other (Intubated on ventilatory support) HEART Score - HEART Score Troponin: Troponin T 0.067 ng/mL (0.00-0.029) H 07/01/20 06:01 Results - Labs CBC & Chem 7: 07/24/20 04:29 07/24/20 04:29 Labs: Laboratory Last Values WBC 8.3 K/mm3 (4.5-11.0) 07/24/20 04:29 RBC 2.53 M/mm3 (3.65-5.03) L 07/24/20 04:29 Hgb 7.5 gm/dl (10.1-14.3) L 07/24/20 04:29 Hct 22.8 % (30.3-42.9) L 07/24/20 04:29 MCV 90 fl (79-97) 07/24/20 04:29 MCH 30 pg (28-32) 07/24/20 04:29 MCHC 33 % (30-34) 07/24/20 04:29 RDW 16.8 % (13.2-15.2) H 07/24/20 04:29 Plt Count 350 K/mm3 (140-440) 07/24/20 04:29 Lymph % (Auto) 9.4 % (13.4-35.0) L 07/24/20 04:29 Gregg % (Auto) 10.4 % (0.0-7.3) H 07/24/20 04:29 Eos % (Auto) 5.9 % (0.0-4.3) H 07/24/20 04:29 Baso % (Auto) 0.8 % (0.0-1.8) 07/24/20 04:29 Lymph # (Auto) 0.8 K/mm3 (1.2-5.4) L 07/24/20 04:29 Gregg # (Auto) 0.9 K/mm3 (0.0-0.8) H 07/24/20 04:29 Eos # (Auto) 0.5 K/mm3 (0.0-0.4) H 07/24/20 04:29 Baso # (Auto) 0.1 K/mm3 (0.0-0.1) 07/24/20 04:29 Add Manual Diff Complete 07/13/20 04:53 Total Counted 100 07/13/20 04:53 Seg Neutrophils % 73.5 % (40.0-70.0) H 07/24/20 04:29 Seg Neuts % (Manual) 84.0 % (40.0-70.0) H 07/13/20 04:53 Band Neutrophils % 1.0 % 07/13/20 04:53 Lymphocytes % (Manual) 7.0 % (13.4-35.0) L 07/13/20 04:53 Reactive Lymphs % (Man) 0 % 07/13/20 04:53 Monocytes % (Manual) 5.0 % (0.0-7.3) 07/13/20 04:53 Eosinophils % (Manual) 1.0 % (0.0-4.3) 07/13/20 04:53 Basophils % (Manual) 0 % (0.0-1.8) 07/13/20 04:53 Metamyelocytes % 2.0 % 07/13/20 04:53 Myelocytes % 0 % 07/13/20 04:53 Promyelocytes % 0 % 07/13/20 04:53 Blast Cells % 0 % 07/13/20 04:53 Nucleated RBC % Not Reportable 07/13/20 04:53 Seg Neutrophils # 6.1 K/mm3 (1.8-7.7) 07/24/20 04:29 Seg Neutrophils # Man 7.1 K/mm3 (1.8-7.7) 07/13/20 04:53 Band Neutrophils # 0.1 K/mm3 07/13/20 04:53 Lymphocytes # (Manual) 0.6 K/mm3 (1.2-5.4) L 07/13/20 04:53 Abs React Lymphs (Man) 0.0 K/mm3 07/13/20 04:53 Monocytes # (Manual) 0.4 K/mm3 (0.0-0.8) 07/13/20 04:53 Eosinophils # (Manual) 0.1 K/mm3 (0.0-0.4) 07/13/20 04:53 Basophils # (Manual) 0.0 K/mm3 (0.0-0.1) 07/13/20 04:53 Metamyelocytes # 0.2 K/mm3 07/13/20 04:53 Myelocytes # 0.0 K/mm3 07/13/20 04:53 Promyelocytes # 0.0 K/mm3 07/13/20 04:53 Blast Cells # 0.0 K/mm3 07/13/20 04:53 WBC Morphology Not Reportable 07/13/20 04:53 Hypersegmented Neuts Not Reportable 07/13/20 04:53 Hyposegmented Neuts Not Reportable 07/13/20 04:53 Hypogranular Neuts Not Reportable 07/13/20 04:53 Smudge Cells Not Reportable 07/13/20 04:53 Toxic Granulation Not Reportable 07/13/20 04:53 Toxic Vacuolation Not Reportable 07/13/20 04:53 Dohle Bodies Not Reportable 07/13/20 04:53 Pelger-Huet Anomaly Not Reportable 07/13/20 04:53 Sanjuanita Rods Not Reportable 07/13/20 04:53 Platelet Estimate Consistent w auto 07/13/20 04:53 Clumped Platelets Not Reportable 07/13/20 04:53 Plt Clumps, EDTA Not Reportable 07/13/20 04:53 Large Platelets Not Reportable 07/13/20 04:53 Giant Platelets Not Reportable 07/13/20 04:53 Platelet Satelliting Not Reportable 07/13/20 04:53 Plt Morphology Comment Not Reportable 07/13/20 04:53 RBC Morphology Not Reportable 07/13/20 04:53 Dimorphic RBCs Not Reportable 07/13/20 04:53 Polychromasia Not Reportable 07/13/20 04:53 Hypochromasia Not Reportable 07/13/20 04:53 Poikilocytosis Not Reportable 07/13/20 04:53 Anisocytosis 1+ 07/13/20 04:53 Microcytosis Not Reportable 07/13/20 04:53 Macrocytosis Not Reportable 07/13/20 04:53 Spherocytes Not Reportable 07/13/20 04:53 Pappenheimer Bodies Not Reportable 07/13/20 04:53 Sickle Cells Not Reportable 07/13/20 04:53 Target Cells Not Reportable 07/13/20 04:53 Tear Drop Cells Not Reportable 07/13/20 04:53 Ovalocytes Not Reportable 07/13/20 04:53 Helmet Cells Not Reportable 07/13/20 04:53 [place] Bodies Not Reportable 07/13/20 04:53 [place] Rings Not Reportable 07/13/20 04:53 Julia Cells Not Reportable 07/13/20 04:53 Bite Cells Not Reportable 07/13/20 04:53 Crenated Cell Not Reportable 07/13/20 04:53 Elliptocytes Not Reportable 07/13/20 04:53 Acanthocytes (Spur) Not Reportable 07/13/20 04:53 Rouleaux Not Reportable 07/13/20 04:53 Hemoglobin C Crystals Not Reportable 07/13/20 04:53 Schistocytes Not Reportable 07/13/20 04:53 Malaria parasites Not Reportable 07/13/20 04:53 Kev Bodies Not Reportable 07/13/20 04:53 Hem Pathologist Commnt No 07/13/20 04:53 PT 14.2 Sec. (12.2-14.9) 05/29/20 15:10 INR 1.08 (0.87-1.13) 05/29/20 15:10 APTT 27.2 Sec. (24.2-36.6) 05/29/20 15:10 D-Dimer 2310.15 ng/mlDDU (0-234) H 06/29/20 14:45 Heparin Anti-Xa Level 0.34 U.I./ml (0.3-0.7) 06/19/20 10:46 ABG pH 7.382 (7.320-7.450) 07/18/20 04:24 POC ABG pCO2 44.1 mmHg (32.0-48.0) 07/18/20 04:24 ABG pCO2 47.0 mm Hg 07/05/20 13:05 ABG Oxyhemoglobin 92.6 (94-98) L 06/23/20 12:34 POC ABG pO2 86.8 mmHg (83-108) 07/18/20 04:24 ABG pO2 78.3 mm Hg (80.0-90.0) L 07/05/20 13:05 POC ABG HCO3 25.6 07/18/20 04:24 ABG HCO3 23.4 mmol/L (20.0-26.0) 07/05/20 13:05 ABG O2 Saturation 96.1 % (95.0-99.0) 07/05/20 13:05 ABG O2 Content 0.3 (0.0-44) 07/05/20 13:05 POC ABG Base Excess 0.4 07/18/20 04:24 ABG Base Excess -2.6 mmol/L (-2.0-3.0) L 07/05/20 13:05 ABG Hemoglobin 8.8 (12.0-17.5) L 07/18/20 04:24 ABG Carboxyhemoglobin 1.7 % (0.0-5.0) 07/05/20 13:05 ABG Methemoglobin 0.2 % (0.0-1.5) 07/05/20 13:05 VBG pH 7.152 (7.320-7.420) L* 05/28/20 13:47 ABG Sodium 131.6 mmol/L (136.0-145.0) L 07/18/20 04:24 ABG Potassium 4.9 mmol/L (3.40-4.50) H 07/18/20 04:24 ABG Chloride 104.0 mmol/L (98-107) 07/18/20 04:24 ABG Glucose 131 mg/dL (65-95) H 07/18/20 04:24 Carboxyhemoglobin 0.5 (0.5-1.5) 06/23/20 12:34 Oxyhemoglobin 97.4 % (95.0-99.0) 07/05/20 13:05 FiO2 30.0 07/18/20 04:24 Sodium 134 mmol/L (137-145) L 07/24/20 04:29 Potassium 5.5 mmol/L (3.6-5.0) H 07/24/20 04:29 Chloride 98.7 mmol/L (98-107) 07/24/20 04:29 Carbon Dioxide 24 mmol/L (22-30) 07/24/20 04:29 Anion Gap 17 mmol/L 07/24/20 04:29 BUN 97 mg/dL (7-17) H 07/24/20 04:29 Creatinine 2.2 mg/dL (0.6-1.2) H 07/24/20 04:29 Estimated GFR 23 ml/min 07/24/20 04:29 BUN/Creatinine Ratio 44 % 07/24/20 04:29 Glucose 149 mg/dL (65-100) H 07/24/20 04:29 POC Glucose 142 (70-105) H 07/24/20 05:11 Lactic Acid 0.60 mmol/L (0.7-2.0) L 06/27/20 05:00 Calcium 8.6 mg/dL (8.4-10.2) 07/24/20 04:29 Ferritin 223.6 ng/mL (10.0-200.0) H 06/29/20 14:45 Magnesium 2.60 mg/dL (1.7-2.3) H 07/24/20 04:29 Lactate Dehydrogenase 367 units/L (91-180) H 06/29/20 14:45 Total Bilirubin 0.20 mg/dL (0.1-1.2) 07/23/20 19:23 AST 35 units/L (5-40) 07/23/20 19:23 ALT 14 units/L (7-56) 07/23/20 19:23 Alkaline Phosphatase 124 units/L (35-129) 07/23/20 19:23 C-Reactive Protein 3.60 mg/dL (0.00-1.30) H 06/29/20 14:45 Total Creatine Kinase 300 units/L (30-135) H 07/01/20 06:01 CK-MB (CK-2) 2.0 ng/mL (0.0-4.0) 07/01/20 06:01 CK-MB (CK-2) Rel Index 0.6 (0-4) 07/01/20 06:01 Troponin T 0.067 ng/mL (0.00-0.029) H 07/01/20 06:01 Total Protein 6.3 g/dL (6.3-8.2) 07/23/20 19: Albumin 2.2 g/dL (3.9-5) L 07/23/20 19: Albumin/Globulin Ratio 0.5 % 07/23/20 19:23 Triglycerides 142 mg/dL (2-149) 07/01/20 06:01 Cholesterol 137 mg/dL (50-199) 07/01/20 06:01 LDL Cholesterol Direct 62 mg/dL (50-130) 07/01/20 06:01 HDL Cholesterol 61 mg/dL (40-59) H 07/01/20 06:01 Cholesterol/HDL Ratio 2.24 % 07/01/20 06:01 Procalcitonin 0.18 ng/mL (<0.15) 07/14/20 04:55 Arterial Blood Glucose 131 mg/dL (65-95) H 07/18/20 04:24 Arterial Blood Ionized Calcium 5.1 mg/dL (4.6-5.3) 07/18/20 04:24 Urine Color Yellow (Yellow) 06/06/20 04:00 Urine Turbidity Cloudy (Clear) 06/06/20 04:00 Urine pH 5.0 (5.0-7.0) 06/06/20 04:00 Ur Specific [place] 1.012 (1.003-1.030) 06/06/20 04:00 Urine Protein 100 mg/dl mg/dL (Negative) 06/06/20 04:00 Urine Glucose (UA) 50 mg/dL (Negative) 06/06/20 04:00 Urine Ketones Neg mg/dL (Negative) 06/06/20 04:00 Urine Blood Sm (Negative) 06/06/20 04:00 Urine Nitrite Neg (Negative) 06/06/20 04:00 Urine Bilirubin Neg (Negative) 06/06/20 04:00 Urine Urobilinogen < 2.0 mg/dL (<2.0) 06/06/20 04:00 Ur Leukocyte Esterase Neg (Negative) 06/06/20 04:00 Urine WBC (Auto) 15.0 /HPF (0.0-6.0) H 06/06/20 04:00 Urine RBC (Auto) 23.0 /HPF (0.0-6.0) 06/06/20 04:00 U Epithel Cells (Auto) 8.0 /HPF (0-13.0) 06/06/20 04:00 Urine Bacteria (Auto) 2+ /HPF (Negative) 06/06/20 04:00 Amorphous Crystals 1+ 06/06/20 04:00 Hyaline Casts 16 /LPF 06/06/20 04:00 Urine Mucus 2+ /HPF 06/06/20 04:00 Urine Yeast (Budding) 2+ /HPF 06/03/20 Unknown Urine Creatinine 33.3 mg/dL (0.1-20.0) H 07/06/20 13:20 Urine Sodium 21 mmol/L 07/06/20 13:20 Urine Total Protein 196 mg/dL (5-11.8) H 06/06/20 04:00 Nasal Screen MRSA (PCR) Negative (Negative) 06/29/20 08:30 Phenytoin 9.4 ug/mL (10.0-20.0) L 07/24/20 04:29 Coronavirus (PCR) Positive (Negative) A 07/14/20 08:04 Blood Type A POSITIVE 07/05/20 02:30 Antibody Screen Negative 07/05/20 02:30 Crossmatch See Detail 07/05/20 02:30 - Diagnostic Impressions Diagnostic Impressions: Echocardiogram Limited Views 05/29/20 13:52 Transthoracic Echocardiogram Indication: Pulm Embolus BP: 169/76 HR: 85 Conclusions *Limited study for RV size post cardiopulmonar arrest. *RV is only slightly dilated, no significant difference from prior echo 05/13/2020. *Global left ventricular systolic function is at the lower limits of normal. *The estimated ejection fraction is 45-50%. *Mild to moderate concentric left ventricular hypertrophy is observed. *The left and right atria are both mild to moderately dilated. Findings Left Ventricle: The left ventricular chamber size is mildly dilated. Mild to moderate concentric left ventricular hypertrophy is observed. Global left ventricular systolic function is at the lower limits of normal. The estimated ejection fraction is 45-50%. Left Atrium: The left atrium is mild to moderately dilated. Right Ventricle: The right ventricle is slightly dilated. Right Atrium: The right atrium is mild to moderately dilated. Aortic Valve: The aortic valve leaflets are moderately thickened. Mitral Valve: There is mitral annular calcification. The mitral valve leaflets are moderately thickened. Tricuspid Valve: The tricuspid valve leaflets are mildly thickened. Pericardium: A trivial pericardial effusion is visualized. NDUM: 05/29/20 1808 Amended Report Transthoracic Echocardiogram Indication: Pulm Embolus BP: 169/76 HR: 85 Conclusions *Limited study for RV size post cardiopulmonary arrest. *RV is only slightly dilated, no significant difference from prior echo 05/13/2020. *Global left ventricular systolic function is at the lower limits of normal. *The estimated ejection fraction is 45-50%. *Mild to moderate concentric left ventricular hypertrophy is observed. *The left and right atria are both mild to moderately dilated. Findings Left Ventricle: The left ventricular chamber size is mildly dilated. Mild to moderate concentric left ventricular hypertrophy is observed. Global left ventricular systolic function is at the lower limits of normal. The estimated ejection fraction is 45-50%. Left Atrium: The left atrium is mild to moderately dilated. Right Ventricle: The right ventricle is slightly dilated. Right Atrium: The right atrium is mild to moderately dilated. Aortic Valve: The aortic valve leaflets are moderately thickened. Mitral Valve: There is mitral annular calcification. The mitral valve leaflets are moderately thickened. Tricuspid Valve: The tricuspid valve leaflets are mildly thickened. Pericardium: A trivial pericardial effusion is visualized. Helm/IV: Voiding Method External Female Catheter IV Catheter Type [Left Wrist] Peripheral IV IV Catheter Type [Left Upper Peripheral IV arm] IV Catheter Type [Right CVL Internal Jugular] IV Catheter Type [Right Hand] Peripheral IV IV Catheter Type [Right Wrist] Not found on patient IV Catheter Type [Left Hand] INT / Saline Lock IV Catheter Type [Left INT / Saline Lock Antecubital] IV Catheter Type [Right Peripheral IV Forearm] IV Catheter Type [Left Leg] Intra-osseous Active Medications - Current Medications Current Medications: Generic Name Dose Route Start Last Admin Trade Name Freq PRN Reason Stop Dose Admin Acetaminophen 650 mg 06/09/20 10:57 06/29/20 21:18 Tylenol FEEDTUBE 650 mg Q6H PRN Administration Fever >101 Amlodipine Besylate 10 mg 06/02/20 11:00 07/23/20 09:06 Amlodipine PO 10 mg DAILY NELSON Administration Lipase/Protease/Amylase 1 each 05/29/20 13:39 07/07/20 10:[address] 10,500 Unit FEEDTUBE 1 each PRN PRN Administration For Clogged Feeding Tube Carvedilol 25 mg 07/20/20 11:00 07/23/20 23:07 Coreg PO Not Given Q12HR [facility] Clonidine HCl 0.3 mg 07/20/20 11:00 07/23/20 18:16 Catapres PO Not Given Q8H NELSON Glycopyrrolate 2 mg 06/09/20 14:00 07/23/20 20:08 Glycopyrrolate PO 2 mg TID [facility] Administration Heparin Sodium (Porcine) 5,000 unit 06/30/20 14:00 07/24/20 06:26 Heparin SUB-Q 5,000 unit Q8HR NELSON Administration Hydralazine HCl 100 mg 07/14/20 14:00 07/24/20 08:14 Apresoline PO Not Given TID [facility] Hydrophilic Ointment 1 applic 05/28/20 13:49 Vaseline Lip Therapy TP Q2HR PRN Dry Lips Phenytoin 150 mg/ Sodium 103 mls @ 408 mls/hr 07/23/20 22:00 07/24/20 06:27 Chloride IV 408 mls/hr Q8HR NELSON Administration Sodium Chloride 250 mls @ 5 mls/hr 07/23/20 14:15 07/23/20 14:21 Nacl 0.9% 250ml IV 07/25/20 16:14 5 mls/hr ONCE ONE Administration Norepinephrine 4 mg in 250 mls @ 7.5 mls/hr 07/23/20 20:00 07/24/20 07:15 Levophed Drip 4 Mg/Ns 250 Ml IV 0 mcg/min TITR NELSON 0 mls/hr Titration Protocol 2 MCG/MIN Insulin Glargine 10 units 06/08/20 22:00 07/23/20 23:05 Lantus SUB-Q 10 units QHS NELSON Administration Insulin Human Lispro 0 unit 05/29/20 18:00 07/24/20 07:25 Humalog SUB-Q Not Given Q6H [facility] Protocol Labetalol HCl 20 mg 06/03/20 09:00 07/21/20 05:56 Labetalol IV 20 mg Q4H PRN Administration HYPERTENSION Lansoprazole 30 mg 06/05/20 22:00 07/23/20 23:02 Prevacid Solutab FEEDTUBE 30 mg BID NELSON Administration Levetiracetam 1,000 mg 07/21/20 22:00 07/23/20 23:02 Keppra PO 1,000 mg BID NELSON Administration Minoxidil 5 mg 07/21/20 10:00 07/23/20 22:01 Loniten PO 5 mg BID NELSON Administration Multi-Ingred Cream/Lotion/Oil/Oint 1 applic 05/28/20 13:49 Artificial Tears Ophth Oint OU Q4HR PRN Dry Eye(s) Ondansetron HCl 4 mg 06/02/20 09:00 06/09/20 16:48 Zofran IV 4 mg Q8H PRN Administration Nausea And Vomiting Senna 17.6 mg 06/03/20 10:00 07/23/20 23:05 Senokot FEEDTUBE 17.6 mg BID NELSON Administration Simple Syrup 15 ml 05/29/20 13:39 Simple Syrup FEEDTUBE PRN PRN Hypoglycemia Simple Syrup 30 ml 05/29/20 13:39 Simple Syrup FEEDTUBE PRN PRN Hypoglycemia Sodium Bicarbonate 325 mg 05/29/20 13:39 07/07/20 10:36 Sodium Bicarbonate FEEDTUBE 325 mg PRN PRN Administration For Clogged Feeding Tube Sodium Chloride 10 ml 05/28/20 22:00 07/23/20 22:00 Sodium Chloride Flush Syringe 10 Ml IV 10 ml BID NELSON Administration Sodium Chloride 10 ml 05/28/20 19:08 06/16/20 17:50 Sodium Chloride Flush Syringe 10 Ml IV 10 ml PRN PRN Administration LINE FLUSH Nutrition/Malnutrition Assess - Dietary Evaluation Nutrition/Malnutrition Findings: Nutrition Notes Start: 05/29/20 11:45 Freq: Status: Active Protocol: Document 07/20/20 11:28 (Rec: 07/20/20 11:32 [id number]) Nutrition Notes Initial or Follow up Reassessment Current Diagnosis Acute Kidney Injury,Diabetes, Heart Failure,Respiratory Failure Other Pertinent Diagnosis COVID-19 (+), Pulmonary edema, dysphagia Current Diet Nepro at 40 ml/hr Labs/Tests BUN 86 Cr 1.7 Pertinent Medications Reviewed Height 5 ft 6 in Weight 123 kg Adel Body Weight (kg) 59.09 BMI 43.7 Weight Status Morbidly Obese Subjective/Other Information FU for TF tolerance. TF running at goal, pt tolerating . Pt unable to get PEG placed due to COVID test result. Percent of energy/protein needs met: 100%/53% Burn Absent Trauma Absent Current % PO Negligible Minimum of two criteria No physical signs of malnutrition Fluid Accumulation Mild (non-severe) #1 Nutrition Diagnosis Inadequate oral intake Diagnosis Progress(for reassessment Continues documentation) Is patient on ventilator? Yes Is Patient Ambulatory and/or Out of Bed No REE-([place]-St. Jeor-confined to bed) 2172.576 Kcal/Kg value to use for calculation 13 Approximate Energy Requirements Using 1599 kcal/Kg Calculation Used for Recommendations Kcal/kg Additional Notes Protein needs up to 148g (up to 2.5g/kg IBW) Fluid needs 1ml/kcal Nutrition Intervention Change Diet Order: Continue Nutrition Support: Nepro at 40ml/hr Flush 150ml q4h Kcal 1,728 Protein (gm) 78 Fluid (mL) 697 Goal #1 TF tolerance Goal #2 TF to meet at least 65%-70% energy and 80% protein needs Anticipated Discharge Needs: Unable to determine at this time Follow-Up By: 07/27/20 Additional Comments FU for TF tolerance
--- NOTE | 2020-07-24 08:42 | Progress Note ---
Assessment and Plan - Patient Problems (1) Acute kidney injury (AVANI) with acute tubular necrosis (ATN) Current Visit: Yes Status: Acute Plan to address problem: With prolonged hospitalization course and worsening renal injury in the setting of worsening hemodynamics over the last 24 hours that required re-intitiation fo pressor support. Pressors have been weaned off this am. Will add on gentle IVF hydration with NS @ 75 cc/hr. (2) Hyperkalemia Current Visit: Yes Status: Acute Plan to address problem: in the setting of acute kidney injury. Medical management of hyperkalemia. Anticipate with increased distal sodium delivery with IVF, potassium secretion should enhance. (3) Acute hypoxemic respiratory failure Current Visit: Yes Status: Acute Plan to address problem: management per pulmonary team. Remains intubated at this time. (4) Pneumonia due to COVID-19 virus Current Visit: Yes Status: Acute Plan to address problem: management per ID recommendations. Completed course of remdesivir and steroids. Remains on positive on repeat testing and remains in isolation protocol. Subjective Date of service: 07/24/20 Principal diagnosis: Ac hypoxemic resp failure; COVID-19; pneumonia; CHF; Pulm HTN; OHS; DM II Interval history: Re-consulted for worsening renal function and decreased urine output. Remains COVID-19(+). Remains intubated, Fio2 30%. Renal function noted. Restarted on levophed 2 mcg/kg/min overnight, but has been stopped at present time. Objective - Exam Narrative Exam: patient was not directly examined secondary to preservation of PPE - Vital Signs Vital signs: Vital Signs - 12hr 07/23/20 07/23/20 07/23/20 21:00 21:30 21:54 Temperature Pulse Rate 61 61 62 Pulse Rate [ From Monitor] Respiratory 12 13 13 Rate Blood Pressure 115/47 116/49 115/53 O2 Sat by Pulse 96 97 97 Oximetry 07/23/20 07/23/20 07/23/20 22:01 22:02 22:31 Temperature Pulse Rate 61 62 62 Pulse Rate [ From Monitor] Respiratory 14 12 16 Rate Blood Pressure 115/53 115/53 115/53 O2 Sat by Pulse 97 98 96 Oximetry 07/23/20 07/23/20 07/24/20 23:01 23:30 00:00 Temperature 97.9 F Pulse Rate 62 60 62 Pulse Rate [ 66 From Monitor] Respiratory 14 14 12 Rate Blood Pressure 129/54 120/52 O2 Sat by Pulse 96 96 95 Oximetry 07/24/20 07/24/20 07/24/20 00:30 01:00 01:30 Temperature Pulse Rate 63 61 63 Pulse Rate [ From Monitor] Respiratory 16 13 18 Rate Blood Pressure 129/61 130/58 129/57 O2 Sat by Pulse 97 97 98 Oximetry 07/24/20 07/24/20 07/24/20 02:00 02:30 03:00 Temperature Pulse Rate 61 61 63 Pulse Rate [ From Monitor] Respiratory 14 16 19 Rate Blood Pressure 125/59 131/49 140/60 O2 Sat by Pulse 98 97 98 Oximetry 07/24/20 07/24/20 07/24/20 03:31 03:45 04:00 Temperature 98 F Pulse Rate 62 62 62 Pulse Rate [ From Monitor] Respiratory 18 17 Rate Blood Pressure 140/60 150/63 O2 Sat by Pulse 96 97 97 Oximetry 07/24/20 07/24/20 07/24/20 04:31 05:00 05:31 Temperature Pulse Rate 62 62 61 Pulse Rate [ From Monitor] Respiratory 16 15 15 Rate Blood Pressure 150/63 157/68 157/68 O2 Sat by Pulse 96 97 97 Oximetry 07/24/20 07/24/20 07/24/20 06:00 06:31 07:00 Temperature Pulse Rate 61 61 59 L Pulse Rate [ From Monitor] Respiratory 18 16 16 Rate Blood Pressure 164/65 164/65 128/42 O2 Sat by Pulse 97 97 96 Oximetry 07/24/20 07/24/20 07/24/20 07:31 08:00 08:01 Temperature Pulse Rate 59 L 59 L 59 L Pulse Rate [ 58 L From Monitor] Respiratory 16 25 H 15 Rate Blood Pressure 128/42 126/47 O2 Sat by Pulse 96 95 97 Oximetry - Lab 07/24/20 04:29 07/24/20 04:29 Most recent lab results ABG pH 7.382 (7.320-7.450) 07/18/20 04:24 ABG pCO2 47.0 mm Hg 07/05/20 13:05 ABG pO2 78.3 mm Hg (80.0-90.0) L 07/05/20 13:05 ABG HCO3 23.4 mmol/L (20.0-26.0) 07/05/20 13:05 ABG O2 Saturation 96.1 % (95.0-99.0) 07/05/20 13:05 Calcium 8.6 mg/dL (8.4-10.2) 07/24/20 04:29 Magnesium 2.60 mg/dL (1.7-2.3) H 07/24/20 04:29 Urine Creatinine 33.3 mg/dL (0.1-20.0) H 07/06/20 13:20 Urine Sodium 21 mmol/L 07/06/20 13:20 Urine Total Protein 196 mg/dL (5-11.8) H 06/06/20 04:00 Medications & Allergies - Medications Allergies/Adverse Reactions: Allergies No Known Allergies Allergy (Verified 01/21/20 12:28) Home Medications: Home Medications Medication Instructions Recorded Confirmed Last Taken Type AtorvaSTATin [Lipitor] 20 mg PO QHS 05/12/20 05/29/20 Unknown History lisinopriL [Zestril TAB] 40 mg PO QDAY 05/12/20 05/29/20 Unknown History metFORMIN [Glucophage] 850 mg PO BID 05/12/20 05/29/20 Unknown History Acetaminophen [Acetaminophen TAB] 650 mg PO Q4H PRN tablet 05/13/20 05/29/20 Unknown Rx Dicyclomine [Bentyl] 20 mg PO BID #20 tablet 05/13/20 05/29/20 Unknown Rx Famotidine [Pepcid] 20 mg PO BID #30 tablet 05/13/20 05/29/20 Unknown Rx carvediloL [Coreg] 6.25 mg PO BID #60 05/13/20 05/29/20 Unknown Rx Active Medications: Generic Name Dose Route Start Last Admin Trade Name Freq PRN Reason Stop Dose Admin Acetaminophen 650 mg 06/09/20 10:57 06/29/20 21:18 Tylenol FEEDTUBE 650 mg Q6H PRN Administration Fever >101 Amlodipine Besylate 10 mg 06/02/20 11:00 07/23/20 09:06 Amlodipine PO 10 mg DAILY NELSON Administration Lipase/Protease/Amylase 1 each 05/29/20 13:39 07/07/20 10:[address] 10,500 Unit FEEDTUBE 1 each PRN PRN Administration For Clogged Feeding Tube Carvedilol 25 mg 07/20/20 11:00 07/23/20 23:07 Coreg PO Not Given Q12HR NELSON Clonidine HCl 0.3 mg 07/20/20 11:00 07/23/20 18:16 Catapres PO Not Given Q8H NELSON Glycopyrrolate 2 mg 06/09/20 14:00 07/23/20 20:08 Glycopyrrolate PO 2 mg TID NELSON Administration Heparin Sodium (Porcine) 5,000 unit 06/30/20 14:00 07/24/20 06:26 Heparin SUB-Q 5,000 unit Q8HR NELSON Administration Hydralazine HCl 100 mg 07/14/20 14:00 07/24/20 08:14 Apresoline PO Not Given TID [facility] Hydrophilic Ointment 1 applic 05/28/20 13:49 Vaseline Lip Therapy TP Q2HR PRN Dry Lips Phenytoin 150 mg/ Sodium 103 mls @ 408 mls/hr 07/23/20 22:00 07/24/20 06:27 Chloride IV 408 mls/hr Q8HR NELSON Administration Sodium Chloride 250 mls @ 5 mls/hr 07/23/20 14:15 07/23/20 14:21 Nacl 0.9% 250ml IV 07/25/20 16:14 5 mls/hr ONCE ONE Administration Norepinephrine 4 mg in 250 mls @ 7.5 mls/hr 07/23/20 20:00 07/24/20 07:15 Levophed Drip 4 Mg/Ns 250 Ml IV 0 mcg/min TITR NELSON 0 mls/hr Titration Protocol 2 MCG/MIN Insulin Glargine 10 units 06/08/20 22:00 07/23/20 23:05 Lantus SUB-Q 10 units QHS NELSON Administration Insulin Human Lispro 0 unit 05/29/20 18:00 07/24/20 07:25 Humalog SUB-Q Not Given Q6H [facility] Protocol Labetalol HCl 20 mg 06/03/20 09:00 07/21/20 05:56 Labetalol IV 20 mg Q4H PRN Administration HYPERTENSION Lansoprazole 30 mg 06/05/20 22:00 07/23/20 23:02 Prevacid Solutab FEEDTUBE 30 mg BID NELSON Administration Levetiracetam 1,000 mg 07/21/20 22:00 07/23/20 23:02 Keppra PO 1,000 mg BID NELSON Administration Minoxidil 5 mg 07/21/20 10:00 07/23/20 22:01 Loniten PO 5 mg BID NELSON Administration Multi-Ingred Cream/Lotion/Oil/Oint 1 applic 05/28/20 13:49 Artificial Tears Ophth Oint OU Q4HR PRN Dry Eye(s) Ondansetron HCl 4 mg 06/02/20 09:00 06/09/20 16:48 Zofran IV 4 mg Q8H PRN Administration Nausea And Vomiting Senna 17.6 mg 06/03/20 10:00 07/23/20 23:05 Senokot FEEDTUBE 17.6 mg BID NELSON Administration Simple Syrup 15 ml 05/29/20 13:39 Simple Syrup FEEDTUBE PRN PRN Hypoglycemia Simple Syrup 30 ml 05/29/20 13:39 Simple Syrup FEEDTUBE PRN PRN Hypoglycemia Sodium Bicarbonate 325 mg 05/29/20 13:39 07/07/20 10:36 Sodium Bicarbonate FEEDTUBE 325 mg PRN PRN Administration For Clogged Feeding Tube Sodium Chloride 10 ml 05/28/20 22:00 07/23/20 22:00 Sodium Chloride Flush Syringe 10 Ml IV 10 ml BID NELSON Administration Sodium Chloride 10 ml 05/28/20 19:08 06/16/20 17:50 Sodium Chloride Flush Syringe 10 Ml IV 10 ml PRN PRN Administration LINE FLUSH
[2020-07-24] MEDS: amLODIPine 10 MG TAB PO SCH (09:37)
[2020-07-24] MEDS: MINOXIDIL 2.5 MG TAB PO SCH ×2 (09:38→20:50)
[2020-07-24] MEDS: carvediloL 25 MG TAB PO SCH ×2 (09:38→21:08)
[2020-07-24] MEDS: LANSOPRAZOLE 30 MG SOLUTAB FEEDTUBE SCH ×3 (09:39→20:56)
[2020-07-24] MEDS: SENNOSIDES ORAL LIQD 8.8 MG/5 ML ORAL LIQD FEEDTUBE SCH ×2 (09:39→22:10)
[2020-07-24] MEDS: SODIUM CHLORIDE 0.9% 1000 ML 1,000 ML IV SCH ×2 (09:41→22:01)
[2020-07-24] MEDS: levETIRAcetam 500 MG/5 ML ORAL LIQD PO SCH ×3 (10:10→20:47)
[2020-07-24] MEDS: cloNIDine 0.2 MG TAB PO SCH ×2 (11:36→18:52)
--- NOTE | 2020-07-24 13:20 | Progress Note ---
Assessment and Plan Cardiopulmoanry arrest 06/26/2020 with ROSC Acute hypoxemic respiratory failure , extubated now re-intubated Anemia s/p PRBC Severe COVID infection Multifocal pneumonia Morbid obesity Acute toxic metabolic encephalopathy AVANI secondary to COVID/vasomotor nephropathy Bilateral pulmonary edema. Bilateral pleural effusions. History of congestive heart failure. History of pulmonary hypertension. History of hypertension. Diabetes. Obesity hypoventilation syndrome. Oropharyngeal dysphagia Non convulsive status Hold all antihypertensives Discussed with Renal- patient is 3rd spacing with worsening renal function Continue AEDs per Neurology Get ABG to assess acid base and oxygenation CXR in am Continue to trend temperature curve and WCC Continue daily SBTs as tolerated, her mental status precludes liberation from MVS Continue to avoid nephrotoxins, closely monitor renal function, dose all medicat ions for renal function COVID positive, trach /PEG on hold Supportive transfusions as indicated - VAP bundle addressed -Aspiration precautions, HOB >40 -lung protective strategies-ARDS. net - continue bronchodilators with pulmonary hygiene per RT - wean per pulmonary driven protocols otherwise - continue to avoid benzodiazepines, reduce the possibility of delirium - prn analgesia per CPOT score - Continue to wean supplemental oxygen for target O2 sats > 92% -Continue to hold sedation, if needed intermittent dosing - conservative fluid management measures as tolerated by hemodynamics and renal function - Bronchodilators with pulmonary hygiene per RT - Accuchecks with glycemic control per SSI (While critically ill target blood glucose of 140-180 mg/dL; avoid hypoglycemia) - Maintenance of sleep-wake cycle, avoid delirium - Aspiration precautions, HOB >40 - Stress ulcer prophylaxis -Famotidine - Mobility protocol, off loading and skin assessment for pressure ulcer preven tion - Supportive transfusions as indicated to keep HgB >7g/dL COVID SPECIFIC INTERVENTIONS -Airborne, contact isolation for COVID per facility protocols - s/p Remdesivir -IV steroids-Dexamethasone -Trend d-dimer,and other inflammatory markers per facility protocol -Convalescent plasma therapy per facility protocol -Continue all supportive care Discussed with the ICU team-RT,RN, Clincal pharmacist and case management Life threatening condition- Cardiopulmonary arrest with ROSC, Sepsis ;COVID 19 acute hypoxemic respiratory failure on MVS Mortality/Morbidity- High Complexity of medical decision making- High CONDITION: CRITICAL PROGNOSIS: GUARDED-POOR CODE STATUS: FULL CODE The high probability of a clinically significant, sudden or life-threatening deterioration of the [respiratory & neurology, renal ] system(s) required my full and direct attention, intervention and personal management. The aggregate critical care time was [32] minutes without overlap. Time includes spent on; [x] Data Review and interpretation [x] Patient assessment and monitoring of vital signs [x] Documentation [x] Medication orders and management Subjective Date of service: 07/24/20 Principal diagnosis: Ac hypoxemic resp failure; COVID-19; pneumonia; CHF; Pulm HTN; OHS; DM II Interval history: Patient is seen today for: Ac hypoxemic resp failure s/p Cardiopulmonary arrest with ROSC; Coronavirus-19 infection; pneumonia; Pulmonary edema; Bilateral pleural effusions; CHF; Morbid obesity; pulmonary hypertension; OHS; DM II Seen and examined at bedside; 24hour events reviewed; nursing and respiratory care staff consulted; Vitals, labs,medications, chart reviewed. Remains on MVS, no fevers, Tolerating PS trials Mental status changes persist, but grimaces to pain and will open her eyes with sternal rub Tolerating tube feedings, Hemodynamic instability overnight requiring volume resuscitation. Was on Norepinephrine at 2mcg briefly. Recieved medical therapies and re-distribution therapies for hyperkalemia. Neurology discontinued Vimpat and started Fosphenytoin for seizure activity Objective Vital Signs - 12hr 07/24/20 07/24/20 07/24/20 01:30 02:00 02:30 Temperature Pulse Rate 63 61 61 Pulse Rate [ From Monitor] Respiratory 18 14 16 Rate Blood Pressure 129/57 125/59 131/49 O2 Sat by Pulse 98 98 97 Oximetry 07/24/20 07/24/20 07/24/20 03:00 03:31 03:45 Temperature Pulse Rate 63 62 62 Pulse Rate [ From Monitor] Respiratory 19 18 Rate Blood Pressure 140/60 140/60 O2 Sat by Pulse 98 96 97 Oximetry 07/24/20 07/24/20 07/24/20 04:00 04:31 05:00 Temperature 98 F Pulse Rate 62 62 62 Pulse Rate [ From Monitor] Respiratory 17 16 15 Rate Blood Pressure 150/63 150/63 157/68 O2 Sat by Pulse 97 96 97 Oximetry 07/24/20 07/24/20 07/24/20 05:31 06:00 06:31 Temperature Pulse Rate 61 61 61 Pulse Rate [ From Monitor] Respiratory 15 18 16 Rate Blood Pressure 157/68 164/65 164/65 O2 Sat by Pulse 97 97 97 Oximetry 07/24/20 07/24/20 07/24/20 07:00 07:31 08:00 Temperature 97.6 F Pulse Rate 59 L 59 L 59 L Pulse Rate [ 58 L From Monitor] Respiratory 16 16 25 H Rate Blood Pressure 128/42 128/42 O2 Sat by Pulse 96 96 95 Oximetry 07/24/20 07/24/20 07/24/20 08:01 08:31 09:00 Temperature Pulse Rate 59 L 59 L 60 Pulse Rate [ From Monitor] Respiratory 15 17 17 Rate Blood Pressure 126/47 126/47 128/53 O2 Sat by Pulse 97 96 97 Oximetry 07/24/20 07/24/20 07/24/20 09:13 09:31 09:37 Temperature Pulse Rate 61 62 78 Pulse Rate [ From Monitor] Respiratory 19 25 H Rate Blood Pressure 128/53 128/53 128/53 O2 Sat by Pulse 98 96 Oximetry 07/24/20 07/24/20 07/24/20 09:38 10:00 10:31 Temperature Pulse Rate 78 61 61 Pulse Rate [ From Monitor] Respiratory 25 H 27 H Rate Blood Pressure 128/53 130/45 130/45 O2 Sat by Pulse 96 95 Oximetry 07/24/20 07/24/20 07/24/20 11:00 11:31 11:36 Temperature Pulse Rate 62 61 61 Pulse Rate [ From Monitor] Respiratory 24 27 H Rate Blood Pressure 128/36 128/36 128/36 O2 Sat by Pulse 95 95 Oximetry 07/24/20 07/24/20 07/24/20 12:00 12:17 12:31 Temperature Pulse Rate 61 60 60 Pulse Rate [ 60 From Monitor] Respiratory 28 H 25 H 26 H Rate Blood Pressure 123/49 123/49 123/49 O2 Sat by Pulse 93 94 93 Oximetry 07/24/20 13:00 Temperature Pulse Rate 60 Pulse Rate [ From Monitor] Respiratory 28 H Rate Blood Pressure 119/46 O2 Sat by Pulse 95 Oximetry Constitutional: appears uncomfortable, other (elderly looking obese female with mildly increased respiratory effort at rest on MVS) Eyes: non-icteric ENT: oropharynx dry, other (ETT 23-24 cm AYAN) Neck: supple, no lymphadenopathy, no JVD, other (large neck circumference) Effort: mildly labored Ascultation: Bilateral: clear, diminished breath sounds, rales, rhonchi Percussion: Bilateral: not dull Cardiovascular: regular rate and rhythm, other (S1,S2) Gastrointestinal: normoactive bowel sounds, soft, non-tender, non-distended Integumentary: rash, other Extremities: no cyanosis, pink and warm, pulses normal, no ischemia or petechiae, anasarca Neurologic: pupils equal and round, unable to assess, other (lethargic to obtunded) Psychiatric: other (unable to assess re: AMS) CBC and BMP: 07/25/20 04:24 07/25/20 04:24 ABG, PT/INR, D-dimer: ABG ABG pH 7.382 (7.320-7.450) 07/18/20 04:24 POC ABG pCO2 44.1 mmHg (32.0-48.0) 07/18/20 04:24 ABG pCO2 47.0 mm Hg 07/05/20 13:05 POC ABG pO2 86.8 mmHg (83-108) 07/18/20 04:24 ABG pO2 78.3 mm Hg (80.0-90.0) L 07/05/20 13:05 POC ABG HCO3 25.6 07/18/20 04:24 ABG O2 Saturation 96.1 % (95.0-99.0) 07/05/20 13:05 PT/INR, D-dimer PT 14.2 Sec. (12.2-14.9) 05/29/20 15:10 INR 1.08 (0.87-1.13) 05/29/20 15:10 D-Dimer 2310.15 ng/mlDDU (0-234) H 06/29/20 14:45 Abnormal lab findings: Abnormal Labs 05/28/20 05/28/20 05/28/20 13:29 13:47 13:47 WBC RBC Hgb Hct MCHC RDW 15.3 H Lymph % (Auto) [place] % (Auto) Eos % (Auto) Lymph # [place] # Lymph # (Auto) [place] # (Auto) Eos # (Auto) Seg Neutrophils % Seg Neuts % (Manual) Lymphocytes % (Manual) Seg Neutrophils # Seg Neutrophils # Man Lymphocytes # (Manual) Monocytes % (Manual) Eosinophils % (Manual) Monocytes # (Manual) Eosinophils # (Manual) D-Dimer Heparin Anti-Xa Level ABG pH POC ABG pCO2 POC ABG pO2 ABG pO2 ABG HCO3 ABG O2 Saturation ABG Base Excess ABG Hemoglobin ABG Oxyhemoglobin VBG pH ABG Sodium ABG Potassium ABG Glucose Oxyhemoglobin Sodium Potassium 6.6 H* Chloride 109.2 H Carbon Dioxide 17 L BUN 29 H Creatinine 1.3 H Glucose 265 H POC Glucose 248 H Lactic Acid Calcium 8.1 L Ferritin AST 63 H Alkaline Phosphatase Magnesium Lactate Dehydrogenase Total Creatine Kinase 301 H CK-MB (CK-2) 4.3 H C-Reactive Protein Total Protein 5.4 L Albumin 2.6 L Troponin T HDL Cholesterol Arterial Blood Glucose Urine WBC (Auto) Urine Creatinine Urine Total Protein Phenytoin Coronavirus (PCR) Crossmatch 05/28/20 05/28/20 05/28/20 13:47 13:47 14:46 WBC RBC Hgb Hct MCHC RDW Lymph % (Auto) [place] % (Auto) Eos % (Auto) Lymph # [place] # Lymph # (Auto) [place] # (Auto) Eos # (Auto) Seg Neutrophils % Seg Neuts % (Manual) Lymphocytes % (Manual) Seg Neutrophils # Seg Neutrophils # Man Lymphocytes # (Manual) Monocytes % (Manual) Eosinophils % (Manual) Monocytes # (Manual) Eosinophils # (Manual) D-Dimer Heparin Anti-Xa Level ABG pH POC ABG pCO2 POC ABG pO2 ABG pO2 ABG HCO3 ABG O2 Saturation ABG Base Excess ABG Hemoglobin ABG Oxyhemoglobin VBG pH 7.152 L* ABG Sodium ABG Potassium ABG Glucose Oxyhemoglobin Sodium Potassium 7.2 H* Chloride Carbon Dioxide BUN Creatinine Glucose POC Glucose Lactic Acid 3.40 H* Calcium Ferritin AST Alkaline Phosphatase Magnesium Lactate Dehydrogenase Total Creatine Kinase CK-MB (CK-2) C-Reactive Protein Total Protein Albumin Troponin T HDL Cholesterol Arterial Blood Glucose Urine WBC (Auto) Urine Creatinine Urine Total Protein Phenytoin Coronavirus (PCR) Crossmatch 05/28/20 05/28/20 05/28/20 15:33 15:33 15:51 WBC RBC Hgb Hct MCHC RDW Lymph % (Auto) [place] % (Auto) Eos % (Auto) Lymph # [place] # Lymph # (Auto) [place] # (Auto) Eos # (Auto) Seg Neutrophils % Seg Neuts % (Manual) Lymphocytes % (Manual) Seg Neutrophils # Seg Neutrophils # Man Lymphocytes # (Manual) Monocytes % (Manual) Eosinophils % (Manual) Monocytes # (Manual) Eosinophils # (Manual) D-Dimer 8780.43 H Heparin Anti-Xa Level ABG pH 7.284 L POC ABG pCO2 POC ABG pO2 ABG pO2 273.0 H ABG HCO3 ABG O2 Saturation 99.4 H ABG Base Excess -6.1 L ABG Hemoglobin 17.2 H ABG Oxyhemoglobin VBG pH ABG Sodium ABG Potassium ABG Glucose Oxyhemoglobin Sodium Potassium Chloride Carbon Dioxide BUN Creatinine Glucose 152 H POC Glucose Lactic Acid Calcium Ferritin AST Alkaline Phosphatase Magnesium Lactate Dehydrogenase 365 H Total Creatine Kinase CK-MB (CK-2) C-Reactive Protein Total Protein Albumin Troponin T HDL Cholesterol Arterial Blood Glucose Urine WBC (Auto) Urine Creatinine Urine Total Protein Phenytoin Coronavirus (PCR) Crossmatch 05/28/20 05/28/20 05/28/20 16:30 20:41 23:20 WBC RBC Hgb Hct MCHC RDW Lymph % (Auto) [place] % (Auto) Eos % (Auto) Lymph # [place] # Lymph # (Auto) [place] # (Auto) Eos # (Auto) Seg Neutrophils % Seg Neuts % (Manual) Lymphocytes % (Manual) Seg Neutrophils # Seg Neutrophils # Man Lymphocytes # (Manual) Monocytes % (Manual) Eosinophils % (Manual) Monocytes # (Manual) Eosinophils # (Manual) D-Dimer Heparin Anti-Xa Level ABG pH POC ABG pCO2 POC ABG pO2 ABG pO2 ABG HCO3 ABG O2 Saturation ABG Base Excess ABG Hemoglobin ABG Oxyhemoglobin VBG pH ABG Sodium ABG Potassium ABG Glucose Oxyhemoglobin Sodium Potassium Chloride Carbon Dioxide BUN Creatinine Glucose POC Glucose 225 H 224 H Lactic Acid Calcium Ferritin AST Alkaline Phosphatase Magnesium Lactate Dehydrogenase Total Creatine Kinase CK-MB (CK-2) C-Reactive Protein Total Protein Albumin Troponin T HDL Cholesterol Arterial Blood Glucose Urine WBC (Auto) 17.0 H Urine Creatinine Urine Total Protein Phenytoin Coronavirus (PCR) Crossmatch 05/28/20 05/29/20 05/29/20 Unknown 04:35 04:43 WBC RBC 3.48 L Hgb 9.8 L Hct 29.4 L MCHC RDW 16.0 H Lymph % (Auto) 7.4 L [place] % (Auto) Eos % (Auto) Lymph # 0.7 L [place] # Lymph # (Auto) [place] # (Auto) Eos # (Auto) Seg Neutrophils % 89.1 H Seg Neuts % (Manual) Lymphocytes % (Manual) Seg Neutrophils # 8.1 H Seg Neutrophils # Man Lymphocytes # (Manual) Monocytes % (Manual) Eosinophils % (Manual) Monocytes # (Manual) Eosinophils # (Manual) D-Dimer Heparin Anti-Xa Level ABG pH POC ABG pCO2 POC ABG pO2 ABG pO2 ABG HCO3 19.3 L ABG O2 Saturation ABG Base Excess -4.5 L ABG Hemoglobin 9.7 L ABG Oxyhemoglobin VBG pH ABG Sodium ABG Potassium ABG Glucose Oxyhemoglobin Sodium Potassium Chloride Carbon Dioxide BUN Creatinine Glucose POC Glucose Lactic Acid Calcium Ferritin AST Alkaline Phosphatase Magnesium Lactate Dehydrogenase Total Creatine Kinase CK-MB (CK-2) C-Reactive Protein Total Protein Albumin Troponin T HDL Cholesterol Arterial Blood Glucose Urine WBC (Auto) Urine Creatinine Urine Total Protein Phenytoin Coronavirus (PCR) Positive A Crossmatch 05/29/20 05/29/20 05/29/20 04:43 15:10 17:17 WBC RBC Hgb 9.3 L Hct 28.7 L MCHC RDW Lymph % (Auto) [place] % (Auto) Eos % (Auto) Lymph # [place] # Lymph # (Auto) [place] # (Auto) Eos # (Auto) Seg Neutrophils % Seg Neuts % (Manual) Lymphocytes % (Manual) Seg Neutrophils # Seg Neutrophils # Man Lymphocytes # (Manual) Monocytes % (Manual) Eosinophils % (Manual) Monocytes # (Manual) Eosinophils # (Manual) D-Dimer Heparin Anti-Xa Level ABG pH POC ABG pCO2 POC ABG pO2 ABG pO2 ABG HCO3 ABG O2 Saturation ABG Base Excess ABG Hemoglobin ABG Oxyhemoglobin VBG pH ABG Sodium ABG Potassium ABG Glucose Oxyhemoglobin Sodium Potassium Chloride 110.2 H Carbon Dioxide 18 L BUN 32 H Creatinine 1.4 H Glucose 180 H POC Glucose 147 H Lactic Acid Calcium Ferritin AST Alkaline Phosphatase Magnesium Lactate Dehydrogenase Total Creatine Kinase CK-MB (CK-2) C-Reactive Protein Total Protein Albumin Troponin T HDL Cholesterol Arterial Blood Glucose Urine WBC (Auto) Urine Creatinine Urine Total Protein Phenytoin Coronavirus (PCR) Crossmatch 05/30/20 05/30/20 05/30/20 00:08 00:12 04:15 WBC RBC Hgb Hct MCHC RDW Lymph % (Auto) [place] % (Auto) Eos % (Auto) Lymph # [place] # Lymph # (Auto) [place] # (Auto) Eos # (Auto) Seg Neutrophils % Seg Neuts % (Manual) Lymphocytes % (Manual) Seg Neutrophils # Seg Neutrophils # Man Lymphocytes # (Manual) Monocytes % (Manual) Eosinophils % (Manual) Monocytes # (Manual) Eosinophils # (Manual) D-Dimer Heparin Anti-Xa Level 0.71 H ABG pH 7.460 H POC ABG pCO2 POC ABG pO2 ABG pO2 106.0 H ABG HCO3 18.9 L ABG O2 Saturation ABG Base Excess -4.4 L ABG Hemoglobin 6.8 L ABG Oxyhemoglobin VBG pH ABG Sodium ABG Potassium ABG Glucose Oxyhemoglobin Sodium Potassium Chloride Carbon Dioxide BUN Creatinine Glucose POC Glucose 195 H Lactic Acid Calcium Ferritin AST Alkaline Phosphatase Magnesium Lactate Dehydrogenase Total Creatine Kinase CK-MB (CK-2) C-Reactive Protein Total Protein Albumin Troponin T HDL Cholesterol Arterial Blood Glucose Urine WBC (Auto) Urine Creatinine Urine Total Protein Phenytoin Coronavirus (PCR) Crossmatch 05/30/20 05/30/20 05/30/20 06:07 08:37 12:33 WBC RBC Hgb Hct MCHC RDW Lymph % (Auto) [place] % (Auto) Eos % (Auto) Lymph # [place] # Lymph # (Auto) [place] # (Auto) Eos # (Auto) Seg Neutrophils % Seg Neuts % (Manual) Lymphocytes % (Manual) Seg Neutrophils # Seg Neutrophils # Man Lymphocytes # (Manual) Monocytes % (Manual) Eosinophils % (Manual) Monocytes # (Manual) Eosinophils # (Manual) D-Dimer Heparin Anti-Xa Level 0.85 H ABG pH POC ABG pCO2 POC ABG pO2 ABG pO2 ABG HCO3 ABG O2 Saturation ABG Base Excess ABG Hemoglobin ABG Oxyhemoglobin VBG pH ABG Sodium ABG Potassium ABG Glucose Oxyhemoglobin Sodium Potassium Chloride Carbon Dioxide BUN Creatinine Glucose POC Glucose 182 H 187 H Lactic Acid Calcium Ferritin AST Alkaline Phosphatase Magnesium Lactate Dehydrogenase Total Creatine Kinase CK-MB (CK-2) C-Reactive Protein Total Protein Albumin Troponin T HDL Cholesterol Arterial Blood Glucose Urine WBC (Auto) Urine Creatinine Urine Total Protein Phenytoin Coronavirus (PCR) Crossmatch 05/30/20 05/30/20 05/30/20 15:58 17:57 23:36 WBC RBC Hgb Hct MCHC RDW Lymph % (Auto) [place] % (Auto) Eos % (Auto) Lymph # [place] # Lymph # (Auto) [place] # (Auto) Eos # (Auto) Seg Neutrophils % Seg Neuts % (Manual) Lymphocytes % (Manual) Seg Neutrophils # Seg Neutrophils # Man Lymphocytes # (Manual) Monocytes % (Manual) Eosinophils % (Manual) Monocytes # (Manual) Eosinophils # (Manual) D-Dimer Heparin Anti-Xa Level 1.03 H ABG pH POC ABG pCO2 POC ABG pO2 ABG pO2 ABG HCO3 ABG O2 Saturation ABG Base Excess ABG Hemoglobin ABG Oxyhemoglobin VBG pH ABG Sodium ABG Potassium ABG Glucose Oxyhemoglobin Sodium Potassium Chloride Carbon Dioxide BUN Creatinine Glucose POC Glucose 208 H 185 H Lactic Acid Calcium Ferritin AST Alkaline Phosphatase Magnesium Lactate Dehydrogenase Total Creatine Kinase CK-MB (CK-2) C-Reactive Protein Total Protein Albumin Troponin T HDL Cholesterol Arterial Blood Glucose Urine WBC (Auto) Urine Creatinine Urine Total Protein Phenytoin Coronavirus (PCR) Crossmatch 05/31/20 05/31/20 05/31/20 02:16 03:55 06:16 WBC RBC Hgb 9.2 L Hct 27.5 L MCHC RDW Lymph % (Auto) [place] % (Auto) Eos % (Auto) Lymph # [place] # Lymph # (Auto) [place] # (Auto) Eos # (Auto) Seg Neutrophils % Seg Neuts % (Manual) Lymphocytes % (Manual) Seg Neutrophils # Seg Neutrophils # Man Lymphocytes # (Manual) Monocytes % (Manual) Eosinophils % (Manual) Monocytes # (Manual) Eosinophils # (Manual) D-Dimer Heparin Anti-Xa Level ABG pH POC ABG pCO2 POC ABG pO2 ABG pO2 94.7 H ABG HCO3 18.6 L ABG O2 Saturation ABG Base Excess -5.5 L ABG Hemoglobin 7.9 L ABG Oxyhemoglobin VBG pH ABG Sodium ABG Potassium ABG Glucose Oxyhemoglobin Sodium Potassium Chloride Carbon Dioxide BUN Creatinine Glucose POC Glucose 160 H Lactic Acid Calcium Ferritin AST Alkaline Phosphatase Magnesium Lactate Dehydrogenase Total Creatine Kinase CK-MB (CK-2) C-Reactive Protein Total Protein Albumin Troponin T HDL Cholesterol Arterial Blood Glucose Urine WBC (Auto) Urine Creatinine Urine Total Protein Phenytoin Coronavirus (PCR) Crossmatch 05/31/20 05/31/20 05/31/20 12:20 13:03 18:13 WBC RBC Hgb Hct MCHC RDW Lymph % (Auto) [place] % (Auto) Eos % (Auto) Lymph # [place] # Lymph # (Auto) [place] # (Auto) Eos # (Auto) Seg Neutrophils % Seg Neuts % (Manual) Lymphocytes % (Manual) Seg Neutrophils # Seg Neutrophils # Man Lymphocytes # (Manual) Monocytes % (Manual) Eosinophils % (Manual) Monocytes # (Manual) Eosinophils # (Manual) D-Dimer Heparin Anti-Xa Level ABG pH POC ABG pCO2 POC ABG pO2 ABG pO2 ABG HCO3 ABG O2 Saturation ABG Base Excess ABG Hemoglobin ABG Oxyhemoglobin VBG pH ABG Sodium ABG Potassium ABG Glucose Oxyhemoglobin Sodium Potassium Chloride Carbon Dioxide 18 L BUN 48 H Creatinine 1.6 H Glucose 115 H POC Glucose 128 H 159 H Lactic Acid Calcium 8.3 L Ferritin AST Alkaline Phosphatase Magnesium Lactate Dehydrogenase Total Creatine Kinase CK-MB (CK-2) C-Reactive Protein Total Protein 5.4 L Albumin 2.4 L Troponin T HDL Cholesterol Arterial Blood Glucose Urine WBC (Auto) Urine Creatinine Urine Total Protein Phenytoin Coronavirus (PCR) Crossmatch 05/31/20 06/01/20 06/01/20 23:51 04:00 05:48 WBC RBC Hgb Hct MCHC RDW Lymph % (Auto) [place] % (Auto) Eos % (Auto) Lymph # [place] # Lymph # (Auto) [place] # (Auto) Eos # (Auto) Seg Neutrophils % Seg Neuts % (Manual) Lymphocytes % (Manual) Seg Neutrophils # Seg Neutrophils # Man Lymphocytes # (Manual) Monocytes % (Manual) Eosinophils % (Manual) Monocytes # (Manual) Eosinophils # (Manual) D-Dimer Heparin Anti-Xa Level ABG pH POC ABG pCO2 POC ABG pO2 ABG pO2 109.8 H ABG HCO3 18.8 L ABG O2 Saturation ABG Base Excess -5.9 L ABG Hemoglobin 7.8 L ABG Oxyhemoglobin VBG pH ABG Sodium ABG Potassium ABG Glucose Oxyhemoglobin Sodium Potassium Chloride Carbon Dioxide BUN Creatinine Glucose POC Glucose 171 H 133 H Lactic Acid Calcium Ferritin AST Alkaline Phosphatase Magnesium Lactate Dehydrogenase Total Creatine Kinase CK-MB (CK-2) C-Reactive Protein Total Protein Albumin Troponin T HDL Cholesterol Arterial Blood Glucose Urine WBC (Auto) Urine Creatinine Urine Total Protein Phenytoin Coronavirus (PCR) Crossmatch 06/01/20 06/01/20 06/02/20 12:28 17:29 00:08 WBC RBC Hgb Hct MCHC RDW Lymph % (Auto) [place] % (Auto) Eos % (Auto) Lymph # [place] # Lymph # (Auto) [place] # (Auto) Eos # (Auto) Seg Neutrophils % Seg Neuts % (Manual) Lymphocytes % (Manual) Seg Neutrophils # Seg Neutrophils # Man Lymphocytes # (Manual) Monocytes % (Manual) Eosinophils % (Manual) Monocytes # (Manual) Eosinophils # (Manual) D-Dimer Heparin Anti-Xa Level ABG pH POC ABG pCO2 POC ABG pO2 ABG pO2 ABG HCO3 ABG O2 Saturation ABG Base Excess ABG Hemoglobin ABG Oxyhemoglobin VBG pH ABG Sodium ABG Potassium ABG Glucose Oxyhemoglobin Sodium Potassium Chloride Carbon Dioxide BUN Creatinine Glucose POC Glucose 199 H 209 H 162 H Lactic Acid Calcium Ferritin AST Alkaline Phosphatase Magnesium Lactate Dehydrogenase Total Creatine Kinase CK-MB (CK-2) C-Reactive Protein Total Protein Albumin Troponin T HDL Cholesterol Arterial Blood Glucose Urine WBC (Auto) Urine Creatinine Urine Total Protein Phenytoin Coronavirus (PCR) Crossmatch 06/02/20 06/02/20 06/02/20 04:20 04:20 04:44 WBC RBC Hgb 10.0 L Hct MCHC RDW Lymph % (Auto) [place] % (Auto) Eos % (Auto) Lymph # [place] # Lymph # (Auto) [place] # (Auto) Eos # (Auto) Seg Neutrophils % Seg Neuts % (Manual) Lymphocytes % (Manual) Seg Neutrophils # Seg Neutrophils # Man Lymphocytes # (Manual) Monocytes % (Manual) Eosinophils % (Manual) Monocytes # (Manual) Eosinophils # (Manual) D-Dimer Heparin Anti-Xa Level 0.10 L ABG pH POC ABG pCO2 POC ABG pO2 ABG pO2 150.6 H ABG HCO3 ABG O2 Saturation ABG Base Excess -4.1 L ABG Hemoglobin 11.8 L ABG Oxyhemoglobin VBG pH ABG Sodium ABG Potassium ABG Glucose Oxyhemoglobin Sodium Potassium Chloride Carbon Dioxide BUN Creatinine Glucose POC Glucose Lactic Acid Calcium Ferritin AST Alkaline Phosphatase Magnesium Lactate Dehydrogenase Total Creatine Kinase CK-MB (CK-2) C-Reactive Protein Total Protein Albumin Troponin T HDL Cholesterol Arterial Blood Glucose Urine WBC (Auto) Urine Creatinine Urine Total Protein Phenytoin Coronavirus (PCR) Crossmatch 06/02/20 06/02/20 06/02/20 05:53 12:04 13:49 WBC RBC Hgb Hct MCHC RDW Lymph % (Auto) [place] % (Auto) Eos % (Auto) Lymph # [place] # Lymph # (Auto) [place] # (Auto) Eos # (Auto) Seg Neutrophils % Seg Neuts % (Manual) Lymphocytes % (Manual) Seg Neutrophils # Seg Neutrophils # Man Lymphocytes # (Manual) Monocytes % (Manual) Eosinophils % (Manual) Monocytes # (Manual) Eosinophils # (Manual) D-Dimer Heparin Anti-Xa Level 0.28 L ABG pH POC ABG pCO2 POC ABG pO2 ABG pO2 ABG HCO3 ABG O2 Saturation ABG Base Excess ABG Hemoglobin ABG Oxyhemoglobin VBG pH ABG Sodium ABG Potassium ABG Glucose Oxyhemoglobin Sodium Potassium Chloride Carbon Dioxide BUN Creatinine Glucose POC Glucose 149 H 220 H Lactic Acid Calcium Ferritin AST Alkaline Phosphatase Magnesium Lactate Dehydrogenase Total Creatine Kinase CK-MB (CK-2) C-Reactive Protein Total Protein Albumin Troponin T HDL Cholesterol Arterial Blood Glucose Urine WBC (Auto) Urine Creatinine Urine Total Protein Phenytoin Coronavirus (PCR) Crossmatch 06/02/20 06/02/20 06/03/20 13:49 18:31 00:42 WBC RBC Hgb Hct MCHC RDW Lymph % (Auto) [place] % (Auto) Eos % (Auto) Lymph # [place] # Lymph # (Auto) [place] # (Auto) Eos # (Auto) Seg Neutrophils % Seg Neuts % (Manual) Lymphocytes % (Manual) Seg Neutrophils # Seg Neutrophils # Man Lymphocytes # (Manual) Monocytes % (Manual) Eosinophils % (Manual) Monocytes # (Manual) Eosinophils # (Manual) D-Dimer 769.68 H Heparin Anti-Xa Level ABG pH POC ABG pCO2 POC ABG pO2 ABG pO2 ABG HCO3 ABG O2 Saturation ABG Base Excess ABG Hemoglobin ABG Oxyhemoglobin VBG pH ABG Sodium ABG Potassium ABG Glucose Oxyhemoglobin Sodium Potassium Chloride Carbon Dioxide BUN Creatinine Glucose POC Glucose 225 H 212 H Lactic Acid Calcium Ferritin AST Alkaline Phosphatase Magnesium Lactate Dehydrogenase Total Creatine Kinase CK-MB (CK-2) C-Reactive Protein Total Protein Albumin Troponin T HDL Cholesterol Arterial Blood Glucose Urine WBC (Auto) Urine Creatinine Urine Total Protein Phenytoin Coronavirus (PCR) Crossmatch 06/03/20 06/03/20 06/03/20 05:16 05:16 05:25 WBC 11.4 H RBC Hgb Hct MCHC RDW 16.4 H Lymph % (Auto) [place] % (Auto) Eos % (Auto) Lymph # [place] # Lymph # (Auto) [place] # (Auto) Eos # (Auto) Seg Neutrophils % Seg Neuts % (Manual) Lymphocytes % (Manual) Seg Neutrophils # Seg Neutrophils # Man Lymphocytes # (Manual) Monocytes % (Manual) Eosinophils % (Manual) Monocytes # (Manual) Eosinophils # (Manual) D-Dimer Heparin Anti-Xa Level ABG pH POC ABG pCO2 POC ABG pO2 ABG pO2 160.9 H ABG HCO3 19.4 L ABG O2 Saturation ABG Base Excess -4.9 L ABG Hemoglobin 7.0 L ABG Oxyhemoglobin VBG pH ABG Sodium ABG Potassium ABG Glucose Oxyhemoglobin Sodium Potassium Chloride Carbon Dioxide 18 L BUN 65 H Creatinine 2.0 H Glucose 175 H POC Glucose Lactic Acid Calcium 8.0 L Ferritin AST Alkaline Phosphatase Magnesium Lactate Dehydrogenase Total Creatine Kinase CK-MB (CK-2) C-Reactive Protein Total Protein 5.5 L Albumin 2.2 L Troponin T HDL Cholesterol Arterial Blood Glucose Urine WBC (Auto) Urine Creatinine Urine Total Protein Phenytoin Coronavirus (PCR) Crossmatch 06/03/20 06/03/20 06/03/20 06:07 11:58 18:24 WBC RBC Hgb Hct MCHC RDW Lymph % (Auto) [place] % (Auto) Eos % (Auto) Lymph # [place] # Lymph # (Auto) [place] # (Auto) Eos # (Auto) Seg Neutrophils % Seg Neuts % (Manual) Lymphocytes % (Manual) Seg Neutrophils # Seg Neutrophils # Man Lymphocytes # (Manual) Monocytes % (Manual) Eosinophils % (Manual) Monocytes # (Manual) Eosinophils # (Manual) D-Dimer Heparin Anti-Xa Level ABG pH POC ABG pCO2 POC ABG pO2 ABG pO2 ABG HCO3 ABG O2 Saturation ABG Base Excess ABG Hemoglobin ABG Oxyhemoglobin VBG pH ABG Sodium ABG Potassium ABG Glucose Oxyhemoglobin Sodium Potassium Chloride Carbon Dioxide BUN Creatinine Glucose POC Glucose 177 H 163 H 211 H Lactic Acid Calcium Ferritin AST Alkaline Phosphatase Magnesium Lactate Dehydrogenase Total Creatine Kinase CK-MB (CK-2) C-Reactive Protein Total Protein Albumin Troponin T HDL Cholesterol Arterial Blood Glucose Urine WBC (Auto) Urine Creatinine Urine Total Protein Phenytoin Coronavirus (PCR) Crossmatch 06/03/20 06/03/20 06/04/20 21:50 Unknown 00:26 WBC RBC Hgb Hct MCHC RDW Lymph % (Auto) [place] % (Auto) Eos % (Auto) Lymph # [place] # Lymph # (Auto) [place] # (Auto) Eos # (Auto) Seg Neutrophils % Seg Neuts % (Manual) Lymphocytes % (Manual) Seg Neutrophils # Seg Neutrophils # Man Lymphocytes # (Manual) Monocytes % (Manual) Eosinophils % (Manual) Monocytes # (Manual) Eosinophils # (Manual) D-Dimer Heparin Anti-Xa Level ABG pH POC ABG pCO2 POC ABG pO2 ABG pO2 ABG HCO3 ABG O2 Saturation ABG Base Excess ABG Hemoglobin ABG Oxyhemoglobin VBG pH ABG Sodium ABG Potassium ABG Glucose Oxyhemoglobin Sodium 135 L Potassium Chloride Carbon Dioxide 18 L BUN Creatinine Glucose POC Glucose 241 H Lactic Acid Calcium Ferritin AST Alkaline Phosphatase Magnesium Lactate Dehydrogenase Total Creatine Kinase CK-MB (CK-2) C-Reactive Protein Total Protein Albumin Troponin T HDL Cholesterol Arterial Blood Glucose Urine WBC (Auto) 11.0 H Urine Creatinine Urine Total Protein Phenytoin Coronavirus (PCR) Crossmatch 06/04/20 06/04/20 06/04/20 03:35 04:19 04:19 WBC RBC 3.15 L Hgb 8.9 L Hct 26.8 L D MCHC RDW 15.9 H Lymph % (Auto) 6.0 L [place] % (Auto) Eos % (Auto) Lymph # 0.6 L [place] # Lymph # (Auto) [place] # (Auto) Eos # (Auto) Seg Neutrophils % 86.6 H Seg Neuts % (Manual) Lymphocytes % (Manual) Seg Neutrophils # 9.1 H Seg Neutrophils # Man Lymphocytes # (Manual) Monocytes % (Manual) Eosinophils % (Manual) Monocytes # (Manual) Eosinophils # (Manual) D-Dimer Heparin Anti-Xa Level ABG pH 7.331 L POC ABG pCO2 POC ABG pO2 ABG pO2 ABG HCO3 ABG O2 Saturation ABG Base Excess -4.7 L ABG Hemoglobin 11.0 L ABG Oxyhemoglobin VBG pH ABG Sodium ABG Potassium ABG Glucose Oxyhemoglobin 93.9 L Sodium 136 L Potassium Chloride Carbon Dioxide 20 L BUN 73 H Creatinine 2.0 H Glucose 192 H POC Glucose Lactic Acid Calcium 8.0 L Ferritin AST Alkaline Phosphatase Magnesium Lactate Dehydrogenase 271 H Total Creatine Kinase CK-MB (CK-2) C-Reactive Protein 2.20 H Total Protein 5.0 L Albumin 2.0 L Troponin T HDL Cholesterol Arterial Blood Glucose Urine WBC (Auto) Urine Creatinine Urine Total Protein Phenytoin Coronavirus (PCR) Crossmatch 06/04/20 06/04/20 06/04/20 04:19 05:51 11:48 WBC RBC Hgb Hct MCHC RDW Lymph % (Auto) [place] % (Auto) Eos % (Auto) Lymph # [place] # Lymph # (Auto) [place] # (Auto) Eos # (Auto) Seg Neutrophils % Seg Neuts % (Manual) Lymphocytes % (Manual) Seg Neutrophils # Seg Neutrophils # Man Lymphocytes # (Manual) Monocytes % (Manual) Eosinophils % (Manual) Monocytes # (Manual) Eosinophils # (Manual) D-Dimer 414.52 H Heparin Anti-Xa Level ABG pH POC ABG pCO2 POC ABG pO2 ABG pO2 ABG HCO3 ABG O2 Saturation ABG Base Excess ABG Hemoglobin ABG Oxyhemoglobin VBG pH ABG Sodium ABG Potassium ABG Glucose Oxyhemoglobin Sodium Potassium Chloride Carbon Dioxide BUN Creatinine Glucose POC Glucose 179 H 213 H Lactic Acid Calcium Ferritin AST Alkaline Phosphatase Magnesium Lactate Dehydrogenase Total Creatine Kinase CK-MB (CK-2) C-Reactive Protein Total Protein Albumin Troponin T HDL Cholesterol Arterial Blood Glucose Urine WBC (Auto) Urine Creatinine Urine Total Protein Phenytoin Coronavirus (PCR) Crossmatch 06/04/20 06/05/20 06/05/20 18:25 00:16 05:00 WBC RBC Hgb Hct MCHC RDW Lymph % (Auto) [place] % (Auto) Eos % (Auto) Lymph # [place] # Lymph # (Auto) [place] # (Auto) Eos # (Auto) Seg Neutrophils % Seg Neuts % (Manual) Lymphocytes % (Manual) Seg Neutrophils # Seg Neutrophils # Man Lymphocytes # (Manual) Monocytes % (Manual) Eosinophils % (Manual) Monocytes # (Manual) Eosinophils # (Manual) D-Dimer Heparin Anti-Xa Level ABG pH 7.286 L POC ABG pCO2 POC ABG pO2 ABG pO2 96.2 H ABG HCO3 ABG O2 Saturation ABG Base Excess -6.3 L ABG Hemoglobin 8.8 L ABG Oxyhemoglobin VBG pH ABG Sodium ABG Potassium ABG Glucose Oxyhemoglobin 94.8 L Sodium Potassium Chloride Carbon Dioxide BUN Creatinine Glucose POC Glucose 238 H 183 H Lactic Acid Calcium Ferritin AST Alkaline Phosphatase Magnesium Lactate Dehydrogenase Total Creatine Kinase CK-MB (CK-2) C-Reactive Protein Total Protein Albumin Troponin T HDL Cholesterol Arterial Blood Glucose Urine WBC (Auto) Urine Creatinine Urine Total Protein Phenytoin Coronavirus (PCR) Crossmatch 06/05/20 06/05/20 06/05/20 05:39 07:25 07:25 WBC RBC 2.97 L Hgb 8.7 L Hct 25.7 L MCHC RDW 16.0 H Lymph % (Auto) 8.8 L [place] % (Auto) 13.3 H Eos % (Auto) Lymph # 0.8 L [place] # 1.3 H Lymph # (Auto) [place] # (Auto) Eos # (Auto) Seg Neutrophils % 77.3 H Seg Neuts % (Manual) Lymphocytes % (Manual) Seg Neutrophils # Seg Neutrophils # Man Lymphocytes # (Manual) Monocytes % (Manual) Eosinophils % (Manual) Monocytes # (Manual) Eosinophils # (Manual) D-Dimer Heparin Anti-Xa Level ABG pH POC ABG pCO2 POC ABG pO2 ABG pO2 ABG HCO3 ABG O2 Saturation ABG Base Excess ABG Hemoglobin ABG Oxyhemoglobin VBG pH ABG Sodium ABG Potassium ABG Glucose Oxyhemoglobin Sodium 133 L Potassium Chloride Carbon Dioxide 17 L BUN 89 H Creatinine 2.8 H Glucose 176 H POC Glucose 149 H Lactic Acid Calcium 7.7 L Ferritin AST Alkaline Phosphatase Magnesium Lactate Dehydrogenase Total Creatine Kinase CK-MB (CK-2) C-Reactive Protein Total Protein 4.2 L Albumin 1.9 L Troponin T HDL Cholesterol Arterial Blood Glucose Urine WBC (Auto) Urine Creatinine Urine Total Protein Phenytoin Coronavirus (PCR) Crossmatch 06/05/20 06/05/20 06/05/20 07:25 12:05 15:41 WBC RBC Hgb Hct MCHC RDW Lymph % (Auto) [place] % (Auto) Eos % (Auto) Lymph # [place] # Lymph # (Auto) [place] # (Auto) Eos # (Auto) Seg Neutrophils % Seg Neuts % (Manual) Lymphocytes % (Manual) Seg Neutrophils # Seg Neutrophils # Man Lymphocytes # (Manual) Monocytes % (Manual) Eosinophils % (Manual) Monocytes # (Manual) Eosinophils # (Manual) D-Dimer Heparin Anti-Xa Level 0.76 H 0.81 H ABG pH POC ABG pCO2 POC ABG pO2 ABG pO2 ABG HCO3 ABG O2 Saturation ABG Base Excess ABG Hemoglobin ABG Oxyhemoglobin VBG pH ABG Sodium ABG Potassium ABG Glucose Oxyhemoglobin Sodium Potassium Chloride Carbon Dioxide BUN Creatinine Glucose POC Glucose 198 H Lactic Acid Calcium Ferritin AST Alkaline Phosphatase Magnesium Lactate Dehydrogenase Total Creatine Kinase CK-MB (CK-2) C-Reactive Protein Total Protein Albumin Troponin T HDL Cholesterol Arterial Blood Glucose Urine WBC (Auto) Urine Creatinine Urine Total Protein Phenytoin Coronavirus (PCR) Crossmatch 06/05/20 06/05/20 06/06/20 18:08 23:25 04:00 WBC RBC Hgb Hct MCHC RDW Lymph % (Auto) [place] % (Auto) Eos % (Auto) Lymph # [place] # Lymph # (Auto) [place] # (Auto) Eos # (Auto) Seg Neutrophils % Seg Neuts % (Manual) Lymphocytes % (Manual) Seg Neutrophils # Seg Neutrophils # Man Lymphocytes # (Manual) Monocytes % (Manual) Eosinophils % (Manual) Monocytes # (Manual) Eosinophils # (Manual) D-Dimer Heparin Anti-Xa Level ABG pH POC ABG pCO2 POC ABG pO2 ABG pO2 ABG HCO3 ABG O2 Saturation ABG Base Excess ABG Hemoglobin ABG Oxyhemoglobin VBG pH ABG Sodium ABG Potassium ABG Glucose Oxyhemoglobin Sodium Potassium Chloride Carbon Dioxide BUN Creatinine Glucose POC Glucose 223 H 169 H Lactic Acid Calcium Ferritin AST Alkaline Phosphatase Magnesium Lactate Dehydrogenase Total Creatine Kinase CK-MB (CK-2) C-Reactive Protein Total Protein Albumin Troponin T HDL Cholesterol Arterial Blood Glucose Urine WBC (Auto) 15.0 H Urine Creatinine Urine Total Protein Phenytoin Coronavirus (PCR) Crossmatch 06/06/20 06/06/20 06/06/20 04:00 05:33 05:38 WBC RBC 2.97 L Hgb 8.7 L Hct 26.8 L MCHC RDW 16.8 H Lymph % (Auto) [place] % (Auto) Eos % (Auto) Lymph # [place] # Lymph # (Auto) [place] # (Auto) Eos # (Auto) Seg Neutrophils % Seg Neuts % (Manual) Lymphocytes % (Manual) Seg Neutrophils # Seg Neutrophils # Man Lymphocytes # (Manual) Monocytes % (Manual) Eosinophils % (Manual) Monocytes # (Manual) Eosinophils # (Manual) D-Dimer Heparin Anti-Xa Level ABG pH POC ABG pCO2 POC ABG pO2 ABG pO2 ABG HCO3 ABG O2 Saturation ABG Base Excess ABG Hemoglobin ABG Oxyhemoglobin VBG pH ABG Sodium ABG Potassium ABG Glucose Oxyhemoglobin Sodium Potassium Chloride Carbon Dioxide BUN Creatinine Glucose POC Glucose 186 H Lactic Acid Calcium Ferritin AST Alkaline Phosphatase Magnesium Lactate Dehydrogenase Total Creatine Kinase CK-MB (CK-2) C-Reactive Protein Total Protein Albumin Troponin T HDL Cholesterol Arterial Blood Glucose Urine WBC (Auto) Urine Creatinine 82.2 H Urine Total Protein 196 H Phenytoin Coronavirus (PCR) Crossmatch 06/06/20 06/06/20 06/06/20 05:38 12:25 17:03 WBC RBC Hgb Hct MCHC RDW Lymph % (Auto) [place] % (Auto) Eos % (Auto) Lymph # [place] # Lymph # (Auto) [place] # (Auto) Eos # (Auto) Seg Neutrophils % Seg Neuts % (Manual) Lymphocytes % (Manual) Seg Neutrophils # Seg Neutrophils # Man Lymphocytes # (Manual) Monocytes % (Manual) Eosinophils % (Manual) Monocytes # (Manual) Eosinophils # (Manual) D-Dimer Heparin Anti-Xa Level ABG pH POC ABG pCO2 POC ABG pO2 ABG pO2 ABG HCO3 ABG O2 Saturation ABG Base Excess ABG Hemoglobin ABG Oxyhemoglobin VBG pH ABG Sodium ABG Potassium ABG Glucose Oxyhemoglobin Sodium 134 L Potassium 5.2 H Chloride Carbon Dioxide 18 L BUN 97 H Creatinine 2.5 H Glucose 193 H POC Glucose 239 H 252 H Lactic Acid Calcium 7.5 L Ferritin AST Alkaline Phosphatase Magnesium Lactate Dehydrogenase Total Creatine Kinase CK-MB (CK-2) C-Reactive Protein Total Protein 4.1 L Albumin 1.9 L Troponin T HDL Cholesterol Arterial Blood Glucose Urine WBC (Auto) Urine Creatinine Urine Total Protein Phenytoin Coronavirus (PCR) Crossmatch 06/07/20 06/07/20 06/07/20 00:16 01:49 04:00 WBC RBC 2.91 L Hgb 8.4 L Hct 25.0 L MCHC RDW 16.1 H Lymph % (Auto) 5.7 L [place] % (Auto) 10.5 H Eos % (Auto) Lymph # 0.6 L [place] # 1.1 H Lymph # (Auto) [place] # (Auto) Eos # (Auto) Seg Neutrophils % 83.6 H Seg Neuts % (Manual) Lymphocytes % (Manual) Seg Neutrophils # 9.1 H Seg Neutrophils # Man Lymphocytes # (Manual) Monocytes % (Manual) Eosinophils % (Manual) Monocytes # (Manual) Eosinophils # (Manual) D-Dimer Heparin Anti-Xa Level 0.26 L ABG pH POC ABG pCO2 POC ABG pO2 ABG pO2 ABG HCO3 ABG O2 Saturation ABG Base Excess ABG Hemoglobin ABG Oxyhemoglobin VBG pH ABG Sodium ABG Potassium ABG Glucose Oxyhemoglobin Sodium Potassium Chloride Carbon Dioxide BUN Creatinine Glucose POC Glucose 173 H Lactic Acid Calcium Ferritin AST Alkaline Phosphatase Magnesium Lactate Dehydrogenase Total Creatine Kinase CK-MB (CK-2) C-Reactive Protein Total Protein Albumin Troponin T HDL Cholesterol Arterial Blood Glucose Urine WBC (Auto) Urine Creatinine Urine Total Protein Phenytoin Coronavirus (PCR) Crossmatch 06/07/20 06/07/20 06/07/20 04:00 04:54 05:51 WBC RBC Hgb Hct MCHC RDW Lymph % (Auto) [place] % (Auto) Eos % (Auto) Lymph # [place] # Lymph # (Auto) [place] # (Auto) Eos # (Auto) Seg Neutrophils % Seg Neuts % (Manual) Lymphocytes % (Manual) Seg Neutrophils # Seg Neutrophils # Man Lymphocytes # (Manual) Monocytes % (Manual) Eosinophils % (Manual) Monocytes # (Manual) Eosinophils # (Manual) D-Dimer Heparin Anti-Xa Level ABG pH 7.317 L POC ABG pCO2 POC ABG pO2 ABG pO2 71.4 L ABG HCO3 ABG O2 Saturation 94.3 L ABG Base Excess -4.8 L ABG Hemoglobin 7.1 L ABG Oxyhemoglobin VBG pH ABG Sodium ABG Potassium ABG Glucose Oxyhemoglobin 92.2 L Sodium 133 L Potassium Chloride Carbon Dioxide 18 L BUN 100 H Creatinine 2.5 H Glucose 158 H POC Glucose 168 H Lactic Acid Calcium 7.6 L Ferritin AST Alkaline Phosphatase Magnesium Lactate Dehydrogenase Total Creatine Kinase CK-MB (CK-2) C-Reactive Protein Total Protein 4.7 L Albumin 2.0 L Troponin T HDL Cholesterol Arterial Blood Glucose Urine WBC (Auto) Urine Creatinine Urine Total Protein Phenytoin Coronavirus (PCR) Crossmatch 06/07/20 06/07/20 06/07/20 12:03 17:17 20:10 WBC RBC Hgb Hct MCHC RDW Lymph % (Auto) [place] % (Auto) Eos % (Auto) Lymph # [place] # Lymph # (Auto) [place] # (Auto) Eos # (Auto) Seg Neutrophils % Seg Neuts % (Manual) Lymphocytes % (Manual) Seg Neutrophils # Seg Neutrophils # Man Lymphocytes # (Manual) Monocytes % (Manual) Eosinophils % (Manual) Monocytes # (Manual) Eosinophils # (Manual) D-Dimer Heparin Anti-Xa Level 0.17 L ABG pH POC ABG pCO2 POC ABG pO2 ABG pO2 ABG HCO3 ABG O2 Saturation ABG Base Excess ABG Hemoglobin ABG Oxyhemoglobin VBG pH ABG Sodium ABG Potassium ABG Glucose Oxyhemoglobin Sodium Potassium Chloride Carbon Dioxide BUN Creatinine Glucose POC Glucose 276 H 281 H Lactic Acid Calcium Ferritin AST Alkaline Phosphatase Magnesium Lactate Dehydrogenase Total Creatine Kinase CK-MB (CK-2) C-Reactive Protein Total Protein Albumin Troponin T HDL Cholesterol Arterial Blood Glucose Urine WBC (Auto) Urine Creatinine Urine Total Protein Phenytoin Coronavirus (PCR) Crossmatch 06/08/20 06/08/20 06/08/20 00:02 04:47 04:47 WBC 16.4 H RBC 3.07 L Hgb 8.6 L Hct 26.5 L MCHC RDW 16.3 H Lymph % (Auto) [place] % (Auto) Eos % (Auto) Lymph # [place] # Lymph # (Auto) [place] # (Auto) Eos # (Auto) Seg Neutrophils % Seg Neuts % (Manual) 90.0 H Lymphocytes % (Manual) 3.0 L Seg Neutrophils # Seg Neutrophils # Man 14.8 H Lymphocytes # (Manual) 0.5 L Monocytes % (Manual) Eosinophils % (Manual) Monocytes # (Manual) 1.1 H Eosinophils # (Manual) D-Dimer Heparin Anti-Xa Level ABG pH POC ABG pCO2 POC ABG pO2 ABG pO2 ABG HCO3 ABG O2 Saturation ABG Base Excess ABG Hemoglobin ABG Oxyhemoglobin VBG pH ABG Sodium ABG Potassium ABG Glucose Oxyhemoglobin Sodium 129 L Potassium Chloride 95.6 L Carbon Dioxide 17 L BUN 106 H Creatinine 2.5 H Glucose 213 H POC Glucose 242 H Lactic Acid Calcium 7.6 L Ferritin AST Alkaline Phosphatase Magnesium Lactate Dehydrogenase Total Creatine Kinase CK-MB (CK-2) C-Reactive Protein Total Protein 5.0 L Albumin 2.1 L Troponin T HDL Cholesterol Arterial Blood Glucose Urine WBC (Auto) Urine Creatinine Urine Total Protein Phenytoin Coronavirus (PCR) Crossmatch 06/08/20 06/08/20 06/08/20 05:40 11:55 17:54 WBC RBC Hgb Hct MCHC RDW Lymph % (Auto) [place] % (Auto) Eos % (Auto) Lymph # [place] # Lymph # (Auto) [place] # (Auto) Eos # (Auto) Seg Neutrophils % Seg Neuts % (Manual) Lymphocytes % (Manual) Seg Neutrophils # Seg Neutrophils # Man Lymphocytes # (Manual) Monocytes % (Manual) Eosinophils % (Manual) Monocytes # (Manual) Eosinophils # (Manual) D-Dimer Heparin Anti-Xa Level ABG pH POC ABG pCO2 POC ABG pO2 ABG pO2 ABG HCO3 ABG O2 Saturation ABG Base Excess ABG Hemoglobin ABG Oxyhemoglobin VBG pH ABG Sodium ABG Potassium ABG Glucose Oxyhemoglobin Sodium Potassium Chloride Carbon Dioxide BUN Creatinine Glucose POC Glucose 221 H 218 H 163 H Lactic Acid Calcium Ferritin AST Alkaline Phosphatase Magnesium Lactate Dehydrogenase Total Creatine Kinase CK-MB (CK-2) C-Reactive Protein Total Protein Albumin Troponin T HDL Cholesterol Arterial Blood Glucose Urine WBC (Auto) Urine Creatinine Urine Total Protein Phenytoin Coronavirus (PCR) Crossmatch 06/08/20 06/09/20 06/09/20 22:01 00:09 05:16 WBC 19.0 H RBC 3.35 L Hgb 9.2 L Hct 28.5 L MCHC RDW 16.3 H Lymph % (Auto) [place] % (Auto) Eos % (Auto) Lymph # [place] # Lymph # (Auto) [place] # (Auto) Eos # (Auto) Seg Neutrophils % Seg Neuts % (Manual) 85.0 H Lymphocytes % (Manual) 7.0 L Seg Neutrophils # Seg Neutrophils # Man 16.2 H Lymphocytes # (Manual) Monocytes % (Manual) Eosinophils % (Manual) Monocytes # (Manual) 1.3 H Eosinophils # (Manual) D-Dimer Heparin Anti-Xa Level ABG pH POC ABG pCO2 POC ABG pO2 ABG pO2 ABG HCO3 ABG O2 Saturation ABG Base Excess ABG Hemoglobin ABG Oxyhemoglobin VBG pH ABG Sodium ABG Potassium ABG Glucose Oxyhemoglobin Sodium Potassium Chloride Carbon Dioxide BUN Creatinine Glucose POC Glucose 182 H 150 H Lactic Acid Calcium Ferritin AST Alkaline Phosphatase Magnesium Lactate Dehydrogenase Total Creatine Kinase CK-MB (CK-2) C-Reactive Protein Total Protein Albumin Troponin T HDL Cholesterol Arterial Blood Glucose Urine WBC (Auto) Urine Creatinine Urine Total Protein Phenytoin Coronavirus (PCR) Crossmatch 06/09/20 06/09/2006/09/20 05:16 05:24 11:29 WBC RBC Hgb Hct MCHC RDW Lymph % (Auto) [place] % (Auto) Eos % (Auto) Lymph # [place] # Lymph # (Auto) [place] # (Auto) Eos # (Auto) Seg Neutrophils % Seg Neuts % (Manual) Lymphocytes % (Manual) Seg Neutrophils # Seg Neutrophils # Man Lymphocytes # (Manual) Monocytes % (Manual) Eosinophils % (Manual) Monocytes # (Manual) Eosinophils # (Manual) D-Dimer Heparin Anti-Xa Level ABG pH POC ABG pCO2 POC ABG pO2 ABG pO2 ABG HCO3 ABG O2 Saturation ABG Base Excess ABG Hemoglobin ABG Oxyhemoglobin VBG pH ABG Sodium ABG Potassium ABG Glucose Oxyhemoglobin Sodium 133 L Potassium Chloride Carbon Dioxide 19 L BUN 109 H Creatinine 2.1 H Glucose 133 H POC Glucose 128 H 119 H Lactic Acid Calcium 7.7 L Ferritin AST Alkaline Phosphatase < 5 L Magnesium Lactate Dehydrogenase Total Creatine Kinase CK-MB (CK-2) C-Reactive Protein Total Protein 4.6 L Albumin < 0.2 L Troponin T HDL Cholesterol Arterial Blood Glucose Urine WBC (Auto) Urine Creatinine Urine Total Protein Phenytoin Coronavirus (PCR) Crossmatch 06/09/20 06/10/20 06/10/20 17:32 00:00 05:49 WBC RBC Hgb Hct MCHC RDW Lymph % (Auto) [place] % (Auto) Eos % (Auto) Lymph # [place] # Lymph # (Auto) [place] # (Auto) Eos # (Auto) Seg Neutrophils % Seg Neuts % (Manual) Lymphocytes % (Manual) Seg Neutrophils # Seg Neutrophils # Man Lymphocytes # (Manual) Monocytes % (Manual) Eosinophils % (Manual) Monocytes # (Manual) Eosinophils # (Manual) D-Dimer Heparin Anti-Xa Level 0.19 L ABG pH POC ABG pCO2 POC ABG pO2 ABG pO2 ABG HCO3 ABG O2 Saturation ABG Base Excess ABG Hemoglobin ABG Oxyhemoglobin VBG pH ABG Sodium ABG Potassium ABG Glucose Oxyhemoglobin Sodium Potassium Chloride Carbon Dioxide BUN Creatinine Glucose POC Glucose 106 H 117 H Lactic Acid Calcium Ferritin AST Alkaline Phosphatase Magnesium Lactate Dehydrogenase Total Creatine Kinase CK-MB (CK-2) C-Reactive Protein Total Protein Albumin Troponin T HDL Cholesterol Arterial Blood Glucose Urine WBC (Auto) Urine Creatinine Urine Total Protein Phenytoin Coronavirus (PCR) Crossmatch 06/10/20 06/10/20 06/10/20 05:54 07:40 11:40 WBC RBC Hgb Hct MCHC RDW Lymph % (Auto) [place] % (Auto) Eos % (Auto) Lymph # [place] # Lymph # (Auto) [place] # (Auto) Eos # (Auto) Seg Neutrophils % Seg Neuts % (Manual) Lymphocytes % (Manual) Seg Neutrophils # Seg Neutrophils # Man Lymphocytes # (Manual) Monocytes % (Manual) Eosinophils % (Manual) Monocytes # (Manual) Eosinophils # (Manual) D-Dimer Heparin Anti-Xa Level ABG pH POC ABG pCO2 POC ABG pO2 ABG pO2 ABG HCO3 ABG O2 Saturation ABG Base Excess ABG Hemoglobin ABG Oxyhemoglobin VBG pH ABG Sodium ABG Potassium ABG Glucose Oxyhemoglobin Sodium 146 H D Potassium Chloride Carbon Dioxide 20 L BUN 99 H Creatinine 1.9 H Glucose 121 H POC Glucose 127 H 138 H Lactic Acid Calcium 8.2 L Ferritin AST Alkaline Phosphatase Magnesium Lactate Dehydrogenase Total Creatine Kinase CK-MB (CK-2) C-Reactive Protein Total Protein Albumin Troponin T HDL Cholesterol Arterial Blood Glucose Urine WBC (Auto) Urine Creatinine Urine Total Protein Phenytoin Coronavirus (PCR) Crossmatch 06/10/20 06/10/20 06/10/20 14:44 17:31 23:22 WBC RBC Hgb Hct MCHC RDW Lymph % (Auto) [place] % (Auto) Eos % (Auto) Lymph # [place] # Lymph # (Auto) [place] # (Auto) Eos # (Auto) Seg Neutrophils % Seg Neuts % (Manual) Lymphocytes % (Manual) Seg Neutrophils # Seg Neutrophils # Man Lymphocytes # (Manual) Monocytes % (Manual) Eosinophils % (Manual) Monocytes # (Manual) Eosinophils # (Manual) D-Dimer Heparin Anti-Xa Level 0.17 L ABG pH POC ABG pCO2 POC ABG pO2 ABG pO2 ABG HCO3 ABG O2 Saturation ABG Base Excess ABG Hemoglobin ABG Oxyhemoglobin VBG pH ABG Sodium ABG Potassium ABG Glucose Oxyhemoglobin Sodium Potassium Chloride Carbon Dioxide BUN Creatinine Glucose POC Glucose 128 H 114 H Lactic Acid Calcium Ferritin AST Alkaline Phosphatase Magnesium Lactate Dehydrogenase Total Creatine Kinase CK-MB (CK-2) C-Reactive Protein Total Protein Albumin Troponin T HDL Cholesterol Arterial Blood Glucose Urine WBC (Auto) Urine Creatinine Urine Total Protein Phenytoin Coronavirus (PCR) Crossmatch 06/11/20 06/11/20 06/11/20 00:22 03:45 03:45 WBC 14.6 H RBC 2.77 L Hgb 7.9 L Hct 24.3 L MCHC RDW 16.8 H Lymph % (Auto) 6.6 L [place] % (Auto) 8.5 H Eos % (Auto) Lymph # 1.0 L [place] # 1.2 H Lymph # (Auto) [place] # (Auto) Eos # (Auto) Seg Neutrophils % 82.9 H Seg Neuts % (Manual) Lymphocytes % (Manual) Seg Neutrophils # 12.1 H Seg Neutrophils # Man Lymphocytes # (Manual) Monocytes % (Manual) Eosinophils % (Manual) Monocytes # (Manual) Eosinophils # (Manual) D-Dimer Heparin Anti-Xa Level 0.24 L ABG pH POC ABG pCO2 POC ABG pO2 ABG pO2 ABG HCO3 ABG O2 Saturation ABG Base Excess ABG Hemoglobin ABG Oxyhemoglobin VBG pH ABG Sodium ABG Potassium ABG Glucose Oxyhemoglobin Sodium Potassium Chloride Carbon Dioxide 20 L BUN 88 H Creatinine 1.5 H Glucose 111 H POC Glucose Lactic Acid Calcium 8.2 L Ferritin AST Alkaline Phosphatase Magnesium Lactate Dehydrogenase Total Creatine Kinase CK-MB (CK-2) C-Reactive Protein Total Protein Albumin Troponin T HDL Cholesterol Arterial Blood Glucose Urine WBC (Auto) Urine Creatinine Urine Total Protein Phenytoin Coronavirus (PCR) Crossmatch 06/11/20 06/11/20 06/11/20 06:03 10:22 11:11 WBC RBC Hgb Hct MCHC RDW Lymph % (Auto) [place] % (Auto) Eos % (Auto) Lymph # [place] # Lymph # (Auto) [place] # (Auto) Eos # (Auto) Seg Neutrophils % Seg Neuts % (Manual) Lymphocytes % (Manual) Seg Neutrophils # Seg Neutrophils # Man Lymphocytes # (Manual) Monocytes % (Manual) Eosinophils % (Manual) Monocytes # (Manual) Eosinophils # (Manual) D-Dimer Heparin Anti-Xa Level 0.26 L ABG pH POC ABG pCO2 POC ABG pO2 ABG pO2 ABG HCO3 ABG O2 Saturation ABG Base Excess ABG Hemoglobin 9.6 L ABG Oxyhemoglobin VBG pH ABG Sodium ABG Potassium ABG Glucose Oxyhemoglobin Sodium Potassium Chloride Carbon Dioxide BUN Creatinine Glucose POC Glucose 114 H Lactic Acid Calcium Ferritin AST Alkaline Phosphatase Magnesium Lactate Dehydrogenase Total Creatine Kinase CK-MB (CK-2) C-Reactive Protein Total Protein Albumin Troponin T HDL Cholesterol Arterial Blood Glucose Urine WBC (Auto) Urine Creatinine Urine Total Protein Phenytoin Coronavirus (PCR) Crossmatch 06/11/20 06/11/20 06/12/20 12:24 17:24 00:21 WBC RBC Hgb Hct MCHC RDW Lymph % (Auto) [place] % (Auto) Eos % (Auto) Lymph # [place] # Lymph # (Auto) [place] # (Auto) Eos # (Auto) Seg Neutrophils % Seg Neuts % (Manual) Lymphocytes % (Manual) Seg Neutrophils # Seg Neutrophils # Man Lymphocytes # (Manual) Monocytes % (Manual) Eosinophils % (Manual) Monocytes # (Manual) Eosinophils # (Manual) D-Dimer Heparin Anti-Xa Level ABG pH POC ABG pCO2 POC ABG pO2 ABG pO2 ABG HCO3 ABG O2 Saturation ABG Base Excess ABG Hemoglobin ABG Oxyhemoglobin VBG pH ABG Sodium ABG Potassium ABG Glucose Oxyhemoglobin Sodium Potassium Chloride Carbon Dioxide BUN Creatinine Glucose POC Glucose 119 H 126 H 117 H Lactic Acid Calcium Ferritin AST Alkaline Phosphatase Magnesium Lactate Dehydrogenase Total Creatine Kinase CK-MB (CK-2) C-Reactive Protein Total Protein Albumin Troponin T HDL Cholesterol Arterial Blood Glucose Urine WBC (Auto) Urine Creatinine Urine Total Protein Phenytoin Coronavirus (PCR) Crossmatch 06/12/20 06/12/20 06/12/20 02:46 02:46 05:46 WBC 13.2 H RBC 2.83 L Hgb 8.3 L Hct 24.3 L MCHC RDW 16.6 H Lymph % (Auto) 6.2 L [place] % (Auto) 9.5 H Eos % (Auto) Lymph # 0.8 L [place] # 1.3 H Lymph # (Auto) [place] # (Auto) Eos # (Auto) Seg Neutrophils % 81.9 H Seg Neuts % (Manual) Lymphocytes % (Manual) Seg Neutrophils # 10.9 H Seg Neutrophils # Man Lymphocytes # (Manual) Monocytes % (Manual) Eosinophils % (Manual) Monocytes # (Manual) Eosinophils # (Manual) D-Dimer Heparin Anti-Xa Level ABG pH POC ABG pCO2 POC ABG pO2 ABG pO2 ABG HCO3 ABG O2 Saturation ABG Base Excess ABG Hemoglobin ABG Oxyhemoglobin VBG pH ABG Sodium ABG Potassium ABG Glucose Oxyhemoglobin Sodium Potassium 3.5 L Chloride Carbon Dioxide BUN 77 H Creatinine 1.3 H Glucose POC Glucose 132 H Lactic Acid Calcium 8.3 L Ferritin AST Alkaline Phosphatase Magnesium Lactate Dehydrogenase Total Creatine Kinase CK-MB (CK-2) C-Reactive Protein Total Protein Albumin Troponin T HDL Cholesterol Arterial Blood Glucose Urine WBC (Auto) Urine Creatinine Urine Total Protein Phenytoin Coronavirus (PCR) Crossmatch 06/12/20 06/12/20 06/12/20 09:20 12:16 17:48 WBC RBC Hgb Hct MCHC RDW Lymph % (Auto) [place] % (Auto) Eos % (Auto) Lymph # [place] # Lymph # (Auto) [place] # (Auto) Eos # (Auto) Seg Neutrophils % Seg Neuts % (Manual) Lymphocytes % (Manual) Seg Neutrophils # Seg Neutrophils # Man Lymphocytes # (Manual) Monocytes % (Manual) Eosinophils % (Manual) Monocytes # (Manual) Eosinophils # (Manual) D-Dimer Heparin Anti-Xa Level ABG pH POC ABG pCO2 POC ABG pO2 ABG pO2 91.1 H ABG HCO3 ABG O2 Saturation ABG Base Excess ABG Hemoglobin ABG Oxyhemoglobin VBG pH ABG Sodium ABG Potassium ABG Glucose Oxyhemoglobin 94.8 L Sodium Potassium Chloride Carbon Dioxide BUN Creatinine Glucose POC Glucose 167 H 182 H Lactic Acid Calcium Ferritin AST Alkaline Phosphatase Magnesium Lactate Dehydrogenase Total Creatine Kinase CK-MB (CK-2) C-Reactive Protein Total Protein Albumin Troponin T HDL Cholesterol Arterial Blood Glucose Urine WBC (Auto) Urine Creatinine Urine Total Protein Phenytoin Coronavirus (PCR) Crossmatch 06/13/20 06/13/20 06/13/20 00:08 05:37 09:09 WBC RBC Hgb Hct MCHC RDW Lymph % (Auto) [place] % (Auto) Eos % (Auto) Lymph # [place] # Lymph # (Auto) [place] # (Auto) Eos # (Auto) Seg Neutrophils % Seg Neuts % (Manual) Lymphocytes % (Manual) Seg Neutrophils # Seg Neutrophils # Man Lymphocytes # (Manual) Monocytes % (Manual) Eosinophils % (Manual) Monocytes # (Manual) Eosinophils # (Manual) D-Dimer Heparin Anti-Xa Level 0.86 H ABG pH POC ABG pCO2 POC ABG pO2 ABG pO2 ABG HCO3 ABG O2 Saturation ABG Base Excess ABG Hemoglobin ABG Oxyhemoglobin VBG pH ABG Sodium ABG Potassium ABG Glucose Oxyhemoglobin Sodium Potassium Chloride Carbon Dioxide BUN Creatinine Glucose POC Glucose 142 H 119 H Lactic Acid Calcium Ferritin AST Alkaline Phosphatase Magnesium Lactate Dehydrogenase Total Creatine Kinase CK-MB (CK-2) C-Reactive Protein Total Protein Albumin Troponin T HDL Cholesterol Arterial Blood Glucose Urine WBC (Auto) Urine Creatinine Urine Total Protein Phenytoin Coronavirus (PCR) Crossmatch 06/13/20 06/13/20 06/13/20 12:28 17:55 21:17 WBC RBC Hgb Hct MCHC RDW Lymph % (Auto) [place] % (Auto) Eos % (Auto) Lymph # [place] # Lymph # (Auto) [place] # (Auto) Eos # (Auto) Seg Neutrophils % Seg Neuts % (Manual) Lymphocytes % (Manual) Seg Neutrophils # Seg Neutrophils # Man Lymphocytes # (Manual) Monocytes % (Manual) Eosinophils % (Manual) Monocytes # (Manual) Eosinophils # (Manual) D-Dimer Heparin Anti-Xa Level ABG pH POC ABG pCO2 POC ABG pO2 ABG pO2 ABG HCO3 ABG O2 Saturation ABG Base Excess ABG Hemoglobin ABG Oxyhemoglobin VBG pH ABG Sodium ABG Potassium ABG Glucose Oxyhemoglobin Sodium Potassium Chloride Carbon Dioxide BUN 61 H Creatinine Glucose 131 H POC Glucose 165 H 174 H Lactic Acid Calcium Ferritin AST Alkaline Phosphatase Magnesium Lactate Dehydrogenase Total Creatine Kinase CK-MB (CK-2) C-Reactive Protein Total Protein Albumin Troponin T HDL Cholesterol Arterial Blood Glucose Urine WBC (Auto) Urine Creatinine Urine Total Protein Phenytoin Coronavirus (PCR) Crossmatch 06/13/20 06/13/20 06/14/20 21:17 23:50 05:34 WBC RBC Hgb Hct MCHC RDW Lymph % (Auto) [place] % (Auto) Eos % (Auto) Lymph # [place] # Lymph # (Auto) [place] # (Auto) Eos # (Auto) Seg Neutrophils % Seg Neuts % (Manual) Lymphocytes % (Manual) Seg Neutrophils # Seg Neutrophils # Man Lymphocytes # (Manual) Monocytes % (Manual) Eosinophils % (Manual) Monocytes # (Manual) Eosinophils # (Manual) D-Dimer Heparin Anti-Xa Level 0.72 H ABG pH POC ABG pCO2 POC ABG pO2 ABG pO2 ABG HCO3 ABG O2 Saturation ABG Base Excess ABG Hemoglobin ABG Oxyhemoglobin VBG pH ABG Sodium ABG Potassium ABG Glucose Oxyhemoglobin Sodium 146 H Potassium Chloride 107.6 H Carbon Dioxide BUN 61 H Creatinine 1.3 H Glucose 135 H POC Glucose 146 H Lactic Acid Calcium Ferritin AST Alkaline Phosphatase Magnesium Lactate Dehydrogenase Total Creatine Kinase CK-MB (CK-2) C-Reactive Protein Total Protein Albumin Troponin T HDL Cholesterol Arterial Blood Glucose Urine WBC (Auto) Urine Creatinine Urine Total Protein Phenytoin Coronavirus (PCR) Crossmatch 06/14/20 06/14/20 06/14/20 06:11 09:28 11:30 WBC RBC Hgb Hct MCHC RDW Lymph % (Auto) [place] % (Auto) Eos % (Auto) Lymph # [place] # Lymph # (Auto) [place] # (Auto) Eos # (Auto) Seg Neutrophils % Seg Neuts % (Manual) Lymphocytes % (Manual) Seg Neutrophils # Seg Neutrophils # Man Lymphocytes # (Manual) Monocytes % (Manual) Eosinophils % (Manual) Monocytes # (Manual) Eosinophils # (Manual) D-Dimer Heparin Anti-Xa Level 0.90 H ABG pH POC ABG pCO2 POC ABG pO2 ABG pO2 ABG HCO3 ABG O2 Saturation ABG Base Excess ABG Hemoglobin ABG Oxyhemoglobin VBG pH ABG Sodium ABG Potassium ABG Glucose Oxyhemoglobin Sodium Potassium Chloride Carbon Dioxide BUN Creatinine Glucose POC Glucose 141 H 186 H Lactic Acid Calcium Ferritin AST Alkaline Phosphatase Magnesium Lactate Dehydrogenase Total Creatine Kinase CK-MB (CK-2) C-Reactive Protein Total Protein Albumin Troponin T HDL Cholesterol Arterial Blood Glucose Urine WBC (Auto) Urine Creatinine Urine Total Protein Phenytoin Coronavirus (PCR) Crossmatch 06/14/20 06/14/20 06/14/20 16:07 18:16 23:51 WBC RBC Hgb Hct MCHC RDW Lymph % (Auto) [place] % (Auto) Eos % (Auto) Lymph # [place] # Lymph # (Auto) [place] # (Auto) Eos # (Auto) Seg Neutrophils % Seg Neuts % (Manual) Lymphocytes % (Manual) Seg Neutrophils # Seg Neutrophils # Man Lymphocytes # (Manual) Monocytes % (Manual) Eosinophils % (Manual) Monocytes # (Manual) Eosinophils # (Manual) D-Dimer Heparin Anti-Xa Level 0.82 H ABG pH POC ABG pCO2 POC ABG pO2 ABG pO2 ABG HCO3 ABG O2 Saturation ABG Base Excess ABG Hemoglobin ABG Oxyhemoglobin VBG pH ABG Sodium ABG Potassium ABG Glucose Oxyhemoglobin Sodium Potassium Chloride Carbon Dioxide BUN Creatinine Glucose POC Glucose 106 H 154 H Lactic Acid Calcium Ferritin AST Alkaline Phosphatase Magnesium Lactate Dehydrogenase Total Creatine Kinase CK-MB (CK-2) C-Reactive Protein Total Protein Albumin Troponin T HDL Cholesterol Arterial Blood Glucose Urine WBC (Auto) Urine Creatinine Urine Total Protein Phenytoin Coronavirus (PCR) Crossmatch 06/15/20 06/15/20 06/15/20 04:24 04:24 05:59 WBC RBC 2.75 L Hgb 7.9 L Hct 24.0 L MCHC RDW 16.4 H Lymph % (Auto) 12.9 L [place] % (Auto) 8.7 H Eos % (Auto) 4.6 H Lymph # 1.1 L [place] # Lymph # (Auto) [place] # (Auto) Eos # (Auto) Seg Neutrophils % 73.2 H Seg Neuts % (Manual) Lymphocytes % (Manual) Seg Neutrophils # Seg Neutrophils # Man Lymphocytes # (Manual) Monocytes % (Manual) Eosinophils % (Manual) Monocytes # (Manual) Eosinophils # (Manual) D-Dimer Heparin Anti-Xa Level ABG pH POC ABG pCO2 POC ABG pO2 ABG pO2 ABG HCO3 ABG O2 Saturation ABG Base Excess ABG Hemoglobin ABG Oxyhemoglobin VBG pH ABG Sodium ABG Potassium ABG Glucose Oxyhemoglobin Sodium Potassium 3.4 L Chloride Carbon Dioxide BUN 55 H Creatinine 1.3 H Glucose 142 H POC Glucose 131 H Lactic Acid Calcium Ferritin AST Alkaline Phosphatase Magnesium Lactate Dehydrogenase Total Creatine Kinase CK-MB (CK-2) C-Reactive Protein Total Protein Albumin Troponin T HDL Cholesterol Arterial Blood Glucose Urine WBC (Auto) Urine Creatinine Urine Total Protein Phenytoin Coronavirus (PCR) Crossmatch 06/15/20 06/15/20 06/16/20 12:33 17:07 00:22 WBC RBC Hgb Hct MCHC RDW Lymph % (Auto) [place] % (Auto) Eos % (Auto) Lymph # [place] # Lymph # (Auto) [place] # (Auto) Eos # (Auto) Seg Neutrophils % Seg Neuts % (Manual) Lymphocytes % (Manual) Seg Neutrophils # Seg Neutrophils # Man Lymphocytes # (Manual) Monocytes % (Manual) Eosinophils % (Manual) Monocytes # (Manual) Eosinophils # (Manual) D-Dimer Heparin Anti-Xa Level 0.21 L ABG pH POC ABG pCO2 POC ABG pO2 ABG pO2 ABG HCO3 ABG O2 Saturation ABG Base Excess ABG Hemoglobin ABG Oxyhemoglobin VBG pH ABG Sodium ABG Potassium ABG Glucose Oxyhemoglobin Sodium Potassium Chloride Carbon Dioxide BUN Creatinine Glucose POC Glucose 180 H 185 H Lactic Acid Calcium Ferritin AST Alkaline Phosphatase Magnesium Lactate Dehydrogenase Total Creatine Kinase CK-MB (CK-2) C-Reactive Protein Total Protein Albumin Troponin T HDL Cholesterol Arterial Blood Glucose Urine WBC (Auto) Urine Creatinine Urine Total Protein Phenytoin Coronavirus (PCR) Crossmatch 06/16/20 06/16/20 06/16/20 01:45 08:06 09:15 WBC RBC Hgb Hct MCHC RDW Lymph % (Auto) [place] % (Auto) Eos % (Auto) Lymph # [place] # Lymph # (Auto) [place] # (Auto) Eos # (Auto) Seg Neutrophils % Seg Neuts % (Manual) Lymphocytes % (Manual) Seg Neutrophils # Seg Neutrophils # Man Lymphocytes # (Manual) Monocytes % (Manual) Eosinophils % (Manual) Monocytes # (Manual) Eosinophils # (Manual) D-Dimer Heparin Anti-Xa Level ABG pH POC ABG pCO2 POC ABG pO2 ABG pO2 ABG HCO3 ABG O2 Saturation ABG Base Excess ABG Hemoglobin ABG Oxyhemoglobin VBG pH ABG Sodium ABG Potassium ABG Glucose Oxyhemoglobin Sodium Potassium Chloride Carbon Dioxide BUN 49 H Creatinine Glucose 154 H POC Glucose 140 H 171 H Lactic Acid Calcium Ferritin AST Alkaline Phosphatase Magnesium Lactate Dehydrogenase Total Creatine Kinase CK-MB (CK-2) C-Reactive Protein Total Protein Albumin Troponin T HDL Cholesterol Arterial Blood Glucose Urine WBC (Auto) Urine Creatinine Urine Total Protein Phenytoin Coronavirus (PCR) Crossmatch 06/16/20 06/16/20 06/16/20 10:46 12:33 17:54 WBC RBC Hgb Hct MCHC RDW Lymph % (Auto) [place] % (Auto) Eos % (Auto) Lymph # [place] # Lymph # (Auto) [place] # (Auto) Eos # (Auto) Seg Neutrophils % Seg Neuts % (Manual) Lymphocytes % (Manual) Seg Neutrophils # Seg Neutrophils # Man Lymphocytes # (Manual) Monocytes % (Manual) Eosinophils % (Manual) Monocytes # (Manual) Eosinophils # (Manual) D-Dimer Heparin Anti-Xa Level 0.12 L ABG pH POC ABG pCO2 POC ABG pO2 ABG pO2 ABG HCO3 ABG O2 Saturation ABG Base Excess ABG Hemoglobin ABG Oxyhemoglobin VBG pH ABG Sodium ABG Potassium ABG Glucose Oxyhemoglobin Sodium Potassium Chloride Carbon Dioxide BUN Creatinine Glucose POC Glucose 166 H 151 H Lactic Acid Calcium Ferritin AST Alkaline Phosphatase Magnesium Lactate Dehydrogenase Total Creatine Kinase CK-MB (CK-2) C-Reactive Protein Total Protein Albumin Troponin T HDL Cholesterol Arterial Blood Glucose Urine WBC (Auto) Urine Creatinine Urine Total Protein Phenytoin Coronavirus (PCR) Crossmatch 06/16/20 06/17/20 06/17/20 18:47 00:00 02:19 WBC RBC Hgb Hct MCHC RDW Lymph % (Auto) [place] % (Auto) Eos % (Auto) Lymph # [place] # Lymph # (Auto) [place] # (Auto) Eos # (Auto) Seg Neutrophils % Seg Neuts % (Manual) Lymphocytes % (Manual) Seg Neutrophils # Seg Neutrophils # Man Lymphocytes # (Manual) Monocytes % (Manual) Eosinophils % (Manual) Monocytes # (Manual) Eosinophils # (Manual) D-Dimer Heparin Anti-Xa Level 0.73 H 0.77 H ABG pH POC ABG pCO2 POC ABG pO2 ABG pO2 ABG HCO3 ABG O2 Saturation ABG Base Excess ABG Hemoglobin ABG Oxyhemoglobin VBG pH ABG Sodium ABG Potassium ABG Glucose Oxyhemoglobin Sodium Potassium Chloride Carbon Dioxide BUN Creatinine Glucose POC Glucose 139 H Lactic Acid Calcium Ferritin AST Alkaline Phosphatase Magnesium Lactate Dehydrogenase Total Creatine Kinase CK-MB (CK-2) C-Reactive Protein Total Protein Albumin Troponin T HDL Cholesterol Arterial Blood Glucose Urine WBC (Auto) Urine Creatinine Urine Total Protein Phenytoin Coronavirus (PCR) Crossmatch 06/17/20 06/17/20 06/17/20 06:07 11:42 16:43 WBC RBC Hgb Hct MCHC RDW Lymph % (Auto) [place] % (Auto) Eos % (Auto) Lymph # [place] # Lymph # (Auto) [place] # (Auto) Eos # (Auto) Seg Neutrophils % Seg Neuts % (Manual) Lymphocytes % (Manual) Seg Neutrophils # Seg Neutrophils # Man Lymphocytes # (Manual) Monocytes % (Manual) Eosinophils % (Manual) Monocytes # (Manual) Eosinophils # (Manual) D-Dimer Heparin Anti-Xa Level 0.73 H ABG pH POC ABG pCO2 POC ABG pO2 ABG pO2 ABG HCO3 ABG O2 Saturation ABG Base Excess ABG Hemoglobin ABG Oxyhemoglobin VBG pH ABG Sodium ABG Potassium ABG Glucose Oxyhemoglobin Sodium Potassium Chloride Carbon Dioxide BUN Creatinine Glucose POC Glucose 169 H 169 H Lactic Acid Calcium Ferritin AST Alkaline Phosphatase Magnesium Lactate Dehydrogenase Total Creatine Kinase CK-MB (CK-2) C-Reactive Protein Total Protein Albumin Troponin T HDL Cholesterol Arterial Blood Glucose Urine WBC (Auto) Urine Creatinine Urine Total Protein Phenytoin Coronavirus (PCR) Crossmatch 06/17/20 06/17/20 06/17/20 18:18 23:08 23:16 WBC RBC Hgb Hct MCHC RDW Lymph % (Auto) [place] % (Auto) Eos % (Auto) Lymph # [place] # Lymph # (Auto) [place] # (Auto) Eos # (Auto) Seg Neutrophils % Seg Neuts % (Manual) Lymphocytes % (Manual) Seg Neutrophils # Seg Neutrophils # Man Lymphocytes # (Manual) Monocytes % (Manual) Eosinophils % (Manual) Monocytes # (Manual) Eosinophils # (Manual) D-Dimer Heparin Anti-Xa Level 0.71 H ABG pH POC ABG pCO2 POC ABG pO2 ABG pO2 ABG HCO3 ABG O2 Saturation ABG Base Excess ABG Hemoglobin ABG Oxyhemoglobin VBG pH ABG Sodium ABG Potassium ABG Glucose Oxyhemoglobin Sodium Potassium Chloride Carbon Dioxide BUN Creatinine Glucose POC Glucose 159 H 134 H Lactic Acid Calcium Ferritin AST Alkaline Phosphatase Magnesium Lactate Dehydrogenase Total Creatine Kinase CK-MB (CK-2) C-Reactive Protein Total Protein Albumin Troponin T HDL Cholesterol Arterial Blood Glucose Urine WBC (Auto) Urine Creatinine Urine Total Protein Phenytoin Coronavirus (PCR) Crossmatch 06/18/20 06/18/20 06/18/20 04:42 05:52 11:50 WBC RBC Hgb Hct MCHC RDW Lymph % (Auto) [place] % (Auto) Eos % (Auto) Lymph # [place] # Lymph # (Auto) [place] # (Auto) Eos # (Auto) Seg Neutrophils % Seg Neuts % (Manual) Lymphocytes % (Manual) Seg Neutrophils # Seg Neutrophils # Man Lymphocytes # (Manual) Monocytes % (Manual) Eosinophils % (Manual) Monocytes # (Manual) Eosinophils # (Manual) D-Dimer Heparin Anti-Xa Level ABG pH POC ABG pCO2 POC ABG pO2 ABG pO2 ABG HCO3 ABG O2 Saturation ABG Base Excess ABG Hemoglobin ABG Oxyhemoglobin VBG pH ABG Sodium ABG Potassium ABG Glucose Oxyhemoglobin Sodium Potassium Chloride Carbon Dioxide BUN 44 H Creatinine Glucose 115 H POC Glucose 171 H 167 H Lactic Acid Calcium Ferritin AST Alkaline Phosphatase Magnesium Lactate Dehydrogenase Total Creatine Kinase CK-MB (CK-2) C-Reactive Protein Total Protein Albumin Troponin T HDL Cholesterol Arterial Blood Glucose Urine WBC (Auto) Urine Creatinine Urine Total Protein Phenytoin Coronavirus (PCR) Crossmatch 06/18/20 06/19/20 06/19/20 23:46 05:48 07:52 WBC RBC Hgb Hct MCHC RDW Lymph % (Auto) [place] % (Auto) Eos % (Auto) Lymph # [place] # Lymph # (Auto) [place] # (Auto) Eos # (Auto) Seg Neutrophils % Seg Neuts % (Manual) Lymphocytes % (Manual) Seg Neutrophils # Seg Neutrophils # Man Lymphocytes # (Manual) Monocytes % (Manual) Eosinophils % (Manual) Monocytes # (Manual) Eosinophils # (Manual) D-Dimer Heparin Anti-Xa Level ABG pH POC ABG pCO2 POC ABG pO2 ABG pO2 ABG HCO3 ABG O2 Saturation ABG Base Excess ABG Hemoglobin ABG Oxyhemoglobin VBG pH ABG Sodium ABG Potassium ABG Glucose Oxyhemoglobin Sodium Potassium Chloride Carbon Dioxide BUN Creatinine Glucose POC Glucose 130 H 207 H 175 H Lactic Acid Calcium Ferritin AST Alkaline Phosphatase Magnesium Lactate Dehydrogenase Total Creatine Kinase CK-MB (CK-2) C-Reactive Protein Total Protein Albumin Troponin T HDL Cholesterol Arterial Blood Glucose Urine WBC (Auto) Urine Creatinine Urine Total Protein Phenytoin Coronavirus (PCR) Crossmatch 06/19/20 06/19/20 06/20/20 11:42 22:54 05:17 WBC RBC Hgb Hct MCHC RDW Lymph % (Auto) [place] % (Auto) Eos % (Auto) Lymph # [place] # Lymph # (Auto) [place] # (Auto) Eos # (Auto) Seg Neutrophils % Seg Neuts % (Manual) Lymphocytes % (Manual) Seg Neutrophils # Seg Neutrophils # Man Lymphocytes # (Manual) Monocytes % (Manual) Eosinophils % (Manual) Monocytes # (Manual) Eosinophils # (Manual) D-Dimer Heparin Anti-Xa Level ABG pH POC ABG pCO2 POC ABG pO2 ABG pO2 ABG HCO3 ABG O2 Saturation ABG Base Excess ABG Hemoglobin ABG Oxyhemoglobin VBG pH ABG Sodium ABG Potassium ABG Glucose Oxyhemoglobin Sodium Potassium Chloride Carbon Dioxide BUN Creatinine Glucose POC Glucose 166 H 135 H 218 H Lactic Acid Calcium Ferritin AST Alkaline Phosphatase Magnesium Lactate Dehydrogenase Total Creatine Kinase CK-MB (CK-2) C-Reactive Protein Total Protein Albumin Troponin T HDL Cholesterol Arterial Blood Glucose Urine WBC (Auto) Urine Creatinine Urine Total Protein Phenytoin Coronavirus (PCR) Crossmatch 06/20/20 06/20/20 06/20/20 12:04 16:25 16:35 WBC RBC Hgb Hct MCHC RDW Lymph % (Auto) [place] % (Auto) Eos % (Auto) Lymph # [place] # Lymph # (Auto) [place] # (Auto) Eos # (Auto) Seg Neutrophils % Seg Neuts % (Manual) Lymphocytes % (Manual) Seg Neutrophils # Seg Neutrophils # Man Lymphocytes # (Manual) Monocytes % (Manual) Eosinophils % (Manual) Monocytes # (Manual) Eosinophils # (Manual) D-Dimer Heparin Anti-Xa Level ABG pH POC ABG pCO2 POC ABG pO2 ABG pO2 59.6 L ABG HCO3 28.7 H ABG O2 Saturation 93.5 L ABG Base Excess 3.4 H ABG Hemoglobin 7.2 L ABG Oxyhemoglobin VBG pH ABG Sodium ABG Potassium ABG Glucose Oxyhemoglobin 91.3 L Sodium Potassium Chloride Carbon Dioxide BUN Creatinine Glucose POC Glucose 194 H 137 H Lactic Acid Calcium Ferritin AST Alkaline Phosphatase Magnesium Lactate Dehydrogenase Total Creatine Kinase CK-MB (CK-2) C-Reactive Protein Total Protein Albumin Troponin T HDL Cholesterol Arterial Blood Glucose Urine WBC (Auto) Urine Creatinine Urine Total Protein Phenytoin Coronavirus (PCR) Crossmatch 06/20/20 06/21/20 06/21/20 23:59 06:25 12:01 WBC RBC Hgb Hct MCHC RDW Lymph % (Auto) [place] % (Auto) Eos % (Auto) Lymph # [place] # Lymph # (Auto) [place] # (Auto) Eos # (Auto) Seg Neutrophils % Seg Neuts % (Manual) Lymphocytes % (Manual) Seg Neutrophils # Seg Neutrophils # Man Lymphocytes # (Manual) Monocytes % (Manual) Eosinophils % (Manual) Monocytes # (Manual) Eosinophils # (Manual) D-Dimer Heparin Anti-Xa Level ABG pH POC ABG pCO2 POC ABG pO2 ABG pO2 ABG HCO3 ABG O2 Saturation ABG Base Excess ABG Hemoglobin ABG Oxyhemoglobin VBG pH ABG Sodium ABG Potassium ABG Glucose Oxyhemoglobin Sodium Potassium Chloride Carbon Dioxide BUN Creatinine Glucose POC Glucose 156 H 177 H 195 H Lactic Acid Calcium Ferritin AST Alkaline Phosphatase Magnesium Lactate Dehydrogenase Total Creatine Kinase CK-MB (CK-2) C-Reactive Protein Total Protein Albumin Troponin T HDL Cholesterol Arterial Blood Glucose Urine WBC (Auto) Urine Creatinine Urine Total Protein Phenytoin Coronavirus (PCR) Crossmatch 06/21/20 06/21/20 06/22/20 17:04 21:51 05:06 WBC RBC Hgb Hct MCHC RDW Lymph % (Auto) [place] % (Auto) Eos % (Auto) Lymph # [place] # Lymph # (Auto) [place] # (Auto) Eos # (Auto) Seg Neutrophils % Seg Neuts % (Manual) Lymphocytes % (Manual) Seg Neutrophils # Seg Neutrophils # Man Lymphocytes # (Manual) Monocytes % (Manual) Eosinophils % (Manual) Monocytes # (Manual) Eosinophils # (Manual) D-Dimer Heparin Anti-Xa Level ABG pH POC ABG pCO2 POC ABG pO2 ABG pO2 ABG HCO3 ABG O2 Saturation ABG Base Excess ABG Hemoglobin ABG Oxyhemoglobin VBG pH ABG Sodium ABG Potassium ABG Glucose Oxyhemoglobin Sodium Potassium Chloride Carbon Dioxide BUN Creatinine Glucose POC Glucose 156 H 154 H 167 H Lactic Acid Calcium Ferritin AST Alkaline Phosphatase Magnesium Lactate Dehydrogenase Total Creatine Kinase CK-MB (CK-2) C-Reactive Protein Total Protein Albumin Troponin T HDL Cholesterol Arterial Blood Glucose Urine WBC (Auto) Urine Creatinine Urine Total Protein Phenytoin Coronavirus (PCR) Crossmatch 06/22/20 06/22/20 06/22/20 11:20 15:27 16:58 WBC RBC Hgb Hct MCHC RDW Lymph % (Auto) [place] % (Auto) Eos % (Auto) Lymph # [place] # Lymph # (Auto) [place] # (Auto) Eos # (Auto) Seg Neutrophils % Seg Neuts % (Manual) Lymphocytes % (Manual) Seg Neutrophils # Seg Neutrophils # Man Lymphocytes # (Manual) Monocytes % (Manual) Eosinophils % (Manual) Monocytes # (Manual) Eosinophils # (Manual) D-Dimer Heparin Anti-Xa Level ABG pH 7.206 L POC ABG pCO2 79.9 H POC ABG pO2 ABG pO2 ABG HCO3 ABG O2 Saturation ABG Base Excess ABG Hemoglobin 8.3 L ABG Oxyhemoglobin VBG pH ABG Sodium ABG Potassium ABG Glucose Oxyhemoglobin Sodium Potassium Chloride Carbon Dioxide BUN Creatinine Glucose POC Glucose 181 H 230 H Lactic Acid Calcium Ferritin AST Alkaline Phosphatase Magnesium Lactate Dehydrogenase Total Creatine Kinase CK-MB (CK-2) C-Reactive Protein Total Protein Albumin Troponin T HDL Cholesterol Arterial Blood Glucose Urine WBC (Auto) Urine Creatinine Urine Total Protein Phenytoin Coronavirus (PCR) Crossmatch 06/22/20 06/23/20 06/23/20 22:26 05:49 05:49 WBC RBC 2.58 L Hgb 7.4 L Hct 23.2 L MCHC RDW 17.0 H Lymph % (Auto) [place] % (Auto) 11.2 H Eos % (Auto) Lymph # 1.0 L [place] # Lymph # (Auto) [place] # (Auto) Eos # (Auto) Seg Neutrophils % Seg Neuts % (Manual) Lymphocytes % (Manual) Seg Neutrophils # Seg Neutrophils # Man Lymphocytes # (Manual) Monocytes % (Manual) Eosinophils % (Manual) Monocytes # (Manual) Eosinophils # (Manual) D-Dimer Heparin Anti-Xa Level ABG pH POC ABG pCO2 POC ABG pO2 ABG pO2 ABG HCO3 ABG O2 Saturation ABG Base Excess ABG Hemoglobin ABG Oxyhemoglobin VBG pH ABG Sodium ABG Potassium ABG Glucose Oxyhemoglobin Sodium Potassium Chloride Carbon Dioxide BUN 68 H Creatinine 2.4 H Glucose 198 H POC Glucose 195 H Lactic Acid Calcium Ferritin AST Alkaline Phosphatase Magnesium Lactate Dehydrogenase Total Creatine Kinase CK-MB (CK-2) C-Reactive Protein Total Protein Albumin Troponin T HDL Cholesterol Arterial Blood Glucose Urine WBC (Auto) Urine Creatinine Urine Total Protein Phenytoin Coronavirus (PCR) Crossmatch 06/23/20 06/23/20 06/23/20 05:50 12:29 12:34 WBC RBC Hgb Hct MCHC RDW Lymph % (Auto) [place] % (Auto) Eos % (Auto) Lymph # [place] # Lymph # (Auto) [place] # (Auto) Eos # (Auto) Seg Neutrophils % Seg Neuts % (Manual) Lymphocytes % (Manual) Seg Neutrophils # Seg Neutrophils # Man Lymphocytes # (Manual) Monocytes % (Manual) Eosinophils % (Manual) Monocytes # (Manual) Eosinophils # (Manual) D-Dimer Heparin Anti-Xa Level ABG pH POC ABG pCO2 54.7 H POC ABG pO2 68.8 L ABG pO2 ABG HCO3 ABG O2 Saturation ABG Base Excess ABG Hemoglobin 9.8 L ABG Oxyhemoglobin 92.6 L VBG pH ABG Sodium ABG Potassium ABG Glucose Oxyhemoglobin Sodium Potassium Chloride Carbon Dioxide BUN Creatinine Glucose POC Glucose 202 H 218 H Lactic Acid Calcium Ferritin AST Alkaline Phosphatase Magnesium Lactate Dehydrogenase Total Creatine Kinase CK-MB (CK-2) C-Reactive Protein Total Protein Albumin Troponin T HDL Cholesterol Arterial Blood Glucose Urine WBC (Auto) Urine Creatinine Urine Total Protein Phenytoin Coronavirus (PCR) Crossmatch 06/23/20 06/23/20 06/24/20 16:02 22:22 01:06 WBC RBC Hgb Hct MCHC RDW Lymph % (Auto) [place] % (Auto) Eos % (Auto) Lymph # [place] # Lymph # (Auto) [place] # (Auto) Eos # (Auto) Seg Neutrophils % Seg Neuts % (Manual) Lymphocytes % (Manual) Seg Neutrophils # Seg Neutrophils # Man Lymphocytes # (Manual) Monocytes % (Manual) Eosinophils % (Manual) Monocytes # (Manual) Eosinophils # (Manual) D-Dimer Heparin Anti-Xa Level ABG pH POC ABG pCO2 POC ABG pO2 ABG pO2 ABG HCO3 ABG O2 Saturation ABG Base Excess ABG Hemoglobin ABG Oxyhemoglobin VBG pH ABG Sodium ABG Potassium ABG Glucose Oxyhemoglobin Sodium Potassium Chloride Carbon Dioxide BUN Creatinine Glucose POC Glucose 190 H 166 H 171 H Lactic Acid Calcium Ferritin AST Alkaline Phosphatase Magnesium Lactate Dehydrogenase Total Creatine Kinase CK-MB (CK-2) C-Reactive Protein Total Protein Albumin Troponin T HDL Cholesterol Arterial Blood Glucose Urine WBC (Auto) Urine Creatinine Urine Total Protein Phenytoin Coronavirus (PCR) Crossmatch 06/24/20 06/24/20 06/24/20 04:48 05:35 11:48 WBC RBC Hgb Hct MCHC RDW Lymph % (Auto) [place] % (Auto) Eos % (Auto) Lymph # [place] # Lymph # (Auto) [place] # (Auto) Eos # (Auto) Seg Neutrophils % Seg Neuts % (Manual) Lymphocytes % (Manual) Seg Neutrophils # Seg Neutrophils # Man Lymphocytes # (Manual) Monocytes % (Manual) Eosinophils % (Manual) Monocytes # (Manual) Eosinophils # (Manual) D-Dimer Heparin Anti-Xa Level ABG pH POC ABG pCO2 POC ABG pO2 ABG pO2 ABG HCO3 ABG O2 Saturation ABG Base Excess ABG Hemoglobin ABG Oxyhemoglobin VBG pH ABG Sodium ABG Potassium ABG Glucose Oxyhemoglobin Sodium Potassium Chloride Carbon Dioxide BUN 75 H Creatinine 2.6 H Glucose 179 H POC Glucose 172 H 153 H Lactic Acid Calcium Ferritin AST Alkaline Phosphatase Magnesium Lactate Dehydrogenase Total Creatine Kinase CK-MB (CK-2) C-Reactive Protein Total Protein Albumin Troponin T HDL Cholesterol Arterial Blood Glucose Urine WBC (Auto) Urine Creatinine Urine Total Protein Phenytoin Coronavirus (PCR) Crossmatch 06/24/20 06/24/20 06/25/20 16:38 21:52 12:00 WBC RBC Hgb Hct MCHC RDW Lymph % (Auto) [place] % (Auto) Eos % (Auto) Lymph # [place] # Lymph # (Auto) [place] # (Auto) Eos # (Auto) Seg Neutrophils % Seg Neuts % (Manual) Lymphocytes % (Manual) Seg Neutrophils # Seg Neutrophils # Man Lymphocytes # (Manual) Monocytes % (Manual) Eosinophils % (Manual) Monocytes # (Manual) Eosinophils # (Manual) D-Dimer Heparin Anti-Xa Level ABG pH POC ABG pCO2 POC ABG pO2 ABG pO2 ABG HCO3 ABG O2 Saturation ABG Base Excess ABG Hemoglobin ABG Oxyhemoglobin VBG pH ABG Sodium ABG Potassium ABG Glucose Oxyhemoglobin Sodium Potassium Chloride Carbon Dioxide BUN Creatinine Glucose POC Glucose 123 H 115 H 203 H Lactic Acid Calcium Ferritin AST Alkaline Phosphatase Magnesium Lactate Dehydrogenase Total Creatine Kinase CK-MB (CK-2) C-Reactive Protein Total Protein Albumin Troponin T HDL Cholesterol Arterial Blood Glucose Urine WBC (Auto) Urine Creatinine Urine Total Protein Phenytoin Coronavirus (PCR) Crossmatch 06/25/20 06/25/20 06/25/20 15:43 16:37 23:02 WBC RBC Hgb Hct MCHC RDW Lymph % (Auto) [place] % (Auto) Eos % (Auto) Lymph # [place] # Lymph # (Auto) [place] # (Auto) Eos # (Auto) Seg Neutrophils % Seg Neuts % (Manual) Lymphocytes % (Manual) Seg Neutrophils # Seg Neutrophils # Man Lymphocytes # (Manual) Monocytes % (Manual) Eosinophils % (Manual) Monocytes # (Manual) Eosinophils # (Manual) D-Dimer Heparin Anti-Xa Level ABG pH POC ABG pCO2 POC ABG pO2 ABG pO2 ABG HCO3 ABG O2 Saturation ABG Base Excess ABG Hemoglobin ABG Oxyhemoglobin VBG pH ABG Sodium ABG Potassium ABG Glucose Oxyhemoglobin Sodium Potassium Chloride Carbon Dioxide BUN 71 H Creatinine 1.8 H Glucose 170 H POC Glucose 191 H 126 H Lactic Acid Calcium 8.2 L Ferritin AST Alkaline Phosphatase Magnesium Lactate Dehydrogenase Total Creatine Kinase CK-MB (CK-2) C-Reactive Protein Total Protein Albumin Troponin T HDL Cholesterol Arterial Blood Glucose Urine WBC (Auto) Urine Creatinine Urine Total Protein Phenytoin Coronavirus (PCR) Crossmatch 06/26/20 06/26/20 06/26/20 06:34 06:34 09:27 WBC RBC 2.41 L Hgb 6.9 L Hct 21.5 L MCHC RDW 16.7 H Lymph % (Auto) 10.9 L [place] % (Auto) 9.6 H Eos % (Auto) Lymph # 0.7 L [place] # Lymph # (Auto) [place] # (Auto) Eos # (Auto) Seg Neutrophils % 75.4 H Seg Neuts % (Manual) Lymphocytes % (Manual) Seg Neutrophils # Seg Neutrophils # Man Lymphocytes # (Manual) Monocytes % (Manual) Eosinophils % (Manual) Monocytes # (Manual) Eosinophils # (Manual) D-Dimer Heparin Anti-Xa Level ABG pH POC ABG pCO2 POC ABG pO2 ABG pO2 ABG HCO3 ABG O2 Saturation ABG Base Excess ABG Hemoglobin ABG Oxyhemoglobin VBG pH ABG Sodium ABG Potassium ABG Glucose Oxyhemoglobin Sodium Potassium Chloride Carbon Dioxide BUN 77 H Creatinine 1.9 H Glucose 190 H POC Glucose Lactic Acid Calcium Ferritin AST Alkaline Phosphatase Magnesium Lactate Dehydrogenase Total Creatine Kinase CK-MB (CK-2) C-Reactive Protein Total Protein Albumin Troponin T HDL Cholesterol Arterial Blood Glucose Urine WBC (Auto) Urine Creatinine Urine Total Protein Phenytoin Coronavirus (PCR) Crossmatch See Detail 06/26/20 06/26/20 06/26/20 12:15 16:28 17:28 WBC RBC Hgb Hct MCHC RDW Lymph % (Auto) [place] % (Auto) Eos % (Auto) Lymph # [place] # Lymph # (Auto) [place] # (Auto) Eos # (Auto) Seg Neutrophils % Seg Neuts % (Manual) Lymphocytes % (Manual) Seg Neutrophils # Seg Neutrophils # Man Lymphocytes # (Manual) Monocytes % (Manual) Eosinophils % (Manual) Monocytes # (Manual) Eosinophils # (Manual) D-Dimer Heparin Anti-Xa Level ABG pH POC ABG pCO2 POC ABG pO2 ABG pO2 ABG HCO3 ABG O2 Saturation ABG Base Excess ABG Hemoglobin ABG Oxyhemoglobin VBG pH ABG Sodium ABG Potassium ABG Glucose Oxyhemoglobin Sodium Potassium Chloride Carbon Dioxide BUN Creatinine Glucose POC Glucose 187 H 149 H 189 H Lactic Acid Calcium Ferritin AST Alkaline Phosphatase Magnesium Lactate Dehydrogenase Total Creatine Kinase CK-MB (CK-2) C-Reactive Protein Total Protein Albumin Troponin T HDL Cholesterol Arterial Blood Glucose Urine WBC (Auto) Urine Creatinine Urine Total Protein Phenytoin Coronavirus (PCR) Crossmatch 06/26/20 06/26/20 06/26/20 18:30 18:30 18:30 WBC RBC 2.87 L Hgb 8.2 L Hct 25.9 L MCHC RDW 17.8 H Lymph % (Auto) [place] % (Auto) Eos % (Auto) Lymph # [place] # Lymph # (Auto) [place] # (Auto) Eos # (Auto) Seg Neutrophils % Seg Neuts % (Manual) 83.0 H Lymphocytes % (Manual) 8.0 L Seg Neutrophils # Seg Neutrophils # Man Lymphocytes # (Manual) 0.6 L Monocytes % (Manual) Eosinophils % (Manual) Monocytes # (Manual) Eosinophils # (Manual) D-Dimer Heparin Anti-Xa Level ABG pH POC ABG pCO2 POC ABG pO2 ABG pO2 ABG HCO3 ABG O2 Saturation ABG Base Excess ABG Hemoglobin ABG Oxyhemoglobin VBG pH ABG Sodium ABG Potassium ABG Glucose Oxyhemoglobin Sodium Potassium Chloride Carbon Dioxide BUN 80 H Creatinine 2.1 H Glucose 260 H POC Glucose Lactic Acid 4.30 H* Calcium 8.3 L Ferritin AST Alkaline Phosphatase Magnesium Lactate Dehydrogenase Total Creatine Kinase CK-MB (CK-2) C-Reactive Protein Total Protein Albumin Troponin T HDL Cholesterol Arterial Blood Glucose Urine WBC (Auto) Urine Creatinine Urine Total Protein Phenytoin Coronavirus (PCR) Crossmatch 06/26/20 06/27/20 06/27/20 18:50 01:00 04:29 WBC RBC Hgb Hct MCHC RDW Lymph % (Auto) [place] % (Auto) Eos % (Auto) Lymph # [place] # Lymph # (Auto) [place] # (Auto) Eos # (Auto) Seg Neutrophils % Seg Neuts % (Manual) Lymphocytes % (Manual) Seg Neutrophils # Seg Neutrophils # Man Lymphocytes # (Manual) Monocytes % (Manual) Eosinophils % (Manual) Monocytes # (Manual) Eosinophils # (Manual) D-Dimer Heparin Anti-Xa Level ABG pH 7.296 L POC ABG pCO2 POC ABG pO2 ABG pO2 116.5 H 200.5 H ABG HCO3 28.4 H ABG O2 Saturation 99.3 H ABG Base Excess 3.7 H ABG Hemoglobin 5.6 L ABG Oxyhemoglobin VBG pH ABG Sodium ABG Potassium ABG Glucose Oxyhemoglobin Sodium Potassium Chloride Carbon Dioxide BUN Creatinine Glucose POC Glucose 123 H Lactic Acid Calcium Ferritin AST Alkaline Phosphatase Magnesium Lactate Dehydrogenase Total Creatine Kinase CK-MB (CK-2) C-Reactive Protein Total Protein Albumin Troponin T HDL Cholesterol Arterial Blood Glucose Urine WBC (Auto) Urine Creatinine Urine Total Protein Phenytoin Coronavirus (PCR) Crossmatch 06/27/20 06/27/20 06/27/20 05:00 05:00 05:00 WBC RBC 2.75 L Hgb 7.9 L Hct 24.3 L MCHC RDW 17.1 H Lymph % (Auto) 8.5 L [place] % (Auto) 12.6 H Eos % (Auto) Lymph # 0.7 L [place] # 1.0 H Lymph # (Auto) [place] # (Auto) Eos # (Auto) Seg Neutrophils % 77.5 H Seg Neuts % (Manual) Lymphocytes % (Manual) Seg Neutrophils # Seg Neutrophils # Man Lymphocytes # (Manual) Monocytes % (Manual) Eosinophils % (Manual) Monocytes # (Manual) Eosinophils # (Manual) D-Dimer Heparin Anti-Xa Level ABG pH POC ABG pCO2 POC ABG pO2 ABG pO2 ABG HCO3 ABG O2 Saturation ABG Base Excess ABG Hemoglobin ABG Oxyhemoglobin VBG pH ABG Sodium ABG Potassium ABG Glucose Oxyhemoglobin Sodium Potassium Chloride Carbon Dioxide BUN 80 H Creatinine 2.0 H Glucose 129 H POC Glucose Lactic Acid 0.60 L Calcium 7.9 L Ferritin AST Alkaline Phosphatase Magnesium Lactate Dehydrogenase Total Creatine Kinase CK-MB (CK-2) C-Reactive Protein Total Protein Albumin Troponin T HDL Cholesterol Arterial Blood Glucose Urine WBC (Auto) Urine Creatinine Urine Total Protein Phenytoin Coronavirus (PCR) Crossmatch 06/27/20 06/27/20 06/27/20 05:23 13:46 17:25 WBC RBC Hgb Hct MCHC RDW Lymph % (Auto) [place] % (Auto) Eos % (Auto) Lymph # [place] # Lymph # (Auto) [place] # (Auto) Eos # (Auto) Seg Neutrophils % Seg Neuts % (Manual) Lymphocytes % (Manual) Seg Neutrophils # Seg Neutrophils # Man Lymphocytes # (Manual) Monocytes % (Manual) Eosinophils % (Manual) Monocytes # (Manual) Eosinophils # (Manual) D-Dimer Heparin Anti-Xa Level ABG pH POC ABG pCO2 POC ABG pO2 ABG pO2 ABG HCO3 ABG O2 Saturation ABG Base Excess ABG Hemoglobin ABG Oxyhemoglobin VBG pH ABG Sodium ABG Potassium ABG Glucose Oxyhemoglobin Sodium Potassium Chloride Carbon Dioxide BUN Creatinine Glucose POC Glucose 109 H 158 H 162 H Lactic Acid Calcium Ferritin AST Alkaline Phosphatase Magnesium Lactate Dehydrogenase Total Creatine Kinase CK-MB (CK-2) C-Reactive Protein Total Protein Albumin Troponin T HDL Cholesterol Arterial Blood Glucose Urine WBC (Auto) Urine Creatinine Urine Total Protein Phenytoin Coronavirus (PCR) Crossmatch 06/27/20 06/27/20 06/28/20 18:43 23:46 04:05 WBC RBC Hgb 7.7 L Hct 22.1 L MCHC RDW Lymph % (Auto) [place] % (Auto) Eos % (Auto) Lymph # [place] # Lymph # (Auto) [place] # (Auto) Eos # (Auto) Seg Neutrophils % Seg Neuts % (Manual) Lymphocytes % (Manual) Seg Neutrophils # Seg Neutrophils # Man Lymphocytes # (Manual) Monocytes % (Manual) Eosinophils % (Manual) Monocytes # (Manual) Eosinophils # (Manual) D-Dimer Heparin Anti-Xa Level ABG pH POC ABG pCO2 POC ABG pO2 ABG pO2 102.7 H ABG HCO3 28.7 H ABG O2 Saturation ABG Base Excess 3.7 H ABG Hemoglobin ABG Oxyhemoglobin VBG pH ABG Sodium ABG Potassium ABG Glucose Oxyhemoglobin Sodium Potassium Chloride Carbon Dioxide BUN Creatinine Glucose POC Glucose 142 H Lactic Acid Calcium Ferritin AST Alkaline Phosphatase Magnesium Lactate Dehydrogenase Total Creatine Kinase CK-MB (CK-2) C-Reactive Protein Total Protein Albumin Troponin T HDL Cholesterol Arterial Blood Glucose Urine WBC (Auto) Urine Creatinine Urine Total Protein Phenytoin Coronavirus (PCR) Crossmatch 06/28/20 06/28/20 06/28/20 09:47 09:47 12:02 WBC RBC 2.53 L Hgb 7.4 L Hct 22.2 L MCHC RDW 16.8 H Lymph % (Auto) [place] % (Auto) 13.5 H Eos % (Auto) Lymph # 1.1 L [place] # 1.0 H Lymph # (Auto) [place] # (Auto) Eos # (Auto) Seg Neutrophils % Seg Neuts % (Manual) Lymphocytes % (Manual) Seg Neutrophils # Seg Neutrophils # Man Lymphocytes # (Manual) Monocytes % (Manual) Eosinophils % (Manual) Monocytes # (Manual) Eosinophils # (Manual) D-Dimer Heparin Anti-Xa Level ABG pH POC ABG pCO2 POC ABG pO2 ABG pO2 ABG HCO3 ABG O2 Saturation ABG Base Excess ABG Hemoglobin ABG Oxyhemoglobin VBG pH ABG Sodium ABG Potassium ABG Glucose Oxyhemoglobin Sodium Potassium Chloride Carbon Dioxide BUN 80 H Creatinine 1.5 H Glucose 139 H POC Glucose 169 H Lactic Acid Calcium 7.9 L Ferritin AST Alkaline Phosphatase Magnesium Lactate Dehydrogenase Total Creatine Kinase CK-MB (CK-2) C-Reactive Protein Total Protein 5.0 L Albumin 2.1 L Troponin T HDL Cholesterol Arterial Blood Glucose Urine WBC (Auto) Urine Creatinine Urine Total Protein Phenytoin Coronavirus (PCR) Crossmatch 06/28/20 06/28/20 06/28/20 12:30 12:30 17:24 WBC RBC 2.38 L Hgb 7.3 L Hct 20.9 L MCHC 35 H RDW 16.7 H Lymph % (Auto) [place] % (Auto) Eos % (Auto) Lymph # [place] # Lymph # (Auto) [place] # (Auto) Eos # (Auto) Seg Neutrophils % Seg Neuts % (Manual) Lymphocytes % (Manual) Seg Neutrophils # Seg Neutrophils # Man Lymphocytes # (Manual) Monocytes % (Manual) Eosinophils % (Manual) Monocytes # (Manual) Eosinophils # (Manual) D-Dimer Heparin Anti-Xa Level ABG pH POC ABG pCO2 POC ABG pO2 ABG pO2 ABG HCO3 ABG O2 Saturation ABG Base Excess ABG Hemoglobin ABG Oxyhemoglobin VBG pH ABG Sodium ABG Potassium ABG Glucose Oxyhemoglobin Sodium Potassium Chloride Carbon Dioxide BUN 74 H Creatinine 1.5 H Glucose 143 H POC Glucose 173 H Lactic Acid Calcium 7.5 L Ferritin AST Alkaline Phosphatase Magnesium Lactate Dehydrogenase Total Creatine Kinase CK-MB (CK-2) C-Reactive Protein Total Protein Albumin Troponin T HDL Cholesterol Arterial Blood Glucose Urine WBC (Auto) Urine Creatinine Urine Total Protein Phenytoin Coronavirus (PCR) Crossmatch 06/29/20 06/29/20 06/29/20 00:02 03:54 04:38 WBC RBC 2.55 L Hgb 7.3 L Hct 22.4 L MCHC RDW 16.4 H Lymph % (Auto) 13.3 L [place] % (Auto) 12.5 H Eos % (Auto) Lymph # 1.1 L [place] # 1.0 H Lymph # (Auto) [place] # (Auto) Eos # (Auto) Seg Neutrophils % Seg Neuts % (Manual) Lymphocytes % (Manual) Seg Neutrophils # Seg Neutrophils # Man Lymphocytes # (Manual) Monocytes % (Manual) Eosinophils % (Manual) Monocytes # (Manual) Eosinophils # (Manual) D-Dimer Heparin Anti-Xa Level ABG pH POC ABG pCO2 POC ABG pO2 ABG pO2 ABG HCO3 26.9 H ABG O2 Saturation ABG Base Excess ABG Hemoglobin 6.9 L ABG Oxyhemoglobin VBG pH ABG Sodium ABG Potassium ABG Glucose Oxyhemoglobin Sodium Potassium Chloride Carbon Dioxide BUN Creatinine Glucose POC Glucose 142 H Lactic Acid Calcium Ferritin AST Alkaline Phosphatase Magnesium Lactate Dehydrogenase Total Creatine Kinase CK-MB (CK-2) C-Reactive Protein Total Protein Albumin Troponin T HDL Cholesterol Arterial Blood Glucose Urine WBC (Auto) Urine Creatinine Urine Total Protein Phenytoin Coronavirus (PCR) Crossmatch 06/29/20 06/29/20 06/29/20 04:38 05:38 12:25 WBC RBC Hgb Hct MCHC RDW Lymph % (Auto) [place] % (Auto) Eos % (Auto) Lymph # [place] # Lymph # (Auto) [place] # (Auto) Eos # (Auto) Seg Neutrophils % Seg Neuts % (Manual) Lymphocytes % (Manual) Seg Neutrophils # Seg Neutrophils # Man Lymphocytes # (Manual) Monocytes % (Manual) Eosinophils % (Manual) Monocytes # (Manual) Eosinophils # (Manual) D-Dimer Heparin Anti-Xa Level ABG pH POC ABG pCO2 POC ABG pO2 ABG pO2 ABG HCO3 ABG O2 Saturation ABG Base Excess ABG Hemoglobin ABG Oxyhemoglobin VBG pH ABG Sodium ABG Potassium ABG Glucose Oxyhemoglobin Sodium Potassium Chloride 107.8 H Carbon Dioxide BUN 72 H Creatinine 1.4 H Glucose 127 H POC Glucose 122 H 138 H Lactic Acid Calcium 7.4 L Ferritin AST Alkaline Phosphatase Magnesium Lactate Dehydrogenase Total Creatine Kinase CK-MB (CK-2) C-Reactive Protein Total Protein Albumin Troponin T HDL Cholesterol Arterial Blood Glucose Urine WBC (Auto) Urine Creatinine Urine Total Protein Phenytoin Coronavirus (PCR) Crossmatch 06/29/20 06/29/20 06/29/20 14:45 14:45 14:45 WBC RBC Hgb Hct MCHC RDW Lymph % (Auto) [place] % (Auto) Eos % (Auto) Lymph # [place] # Lymph # (Auto) [place] # (Auto) Eos # (Auto) Seg Neutrophils % Seg Neuts % (Manual) Lymphocytes % (Manual) Seg Neutrophils # Seg Neutrophils # Man Lymphocytes # (Manual) Monocytes % (Manual) Eosinophils % (Manual) Monocytes # (Manual) Eosinophils # (Manual) D-Dimer 2310.15 H Heparin Anti-Xa Level ABG pH POC ABG pCO2 POC ABG pO2 ABG pO2 ABG HCO3 ABG O2 Saturation ABG Base Excess ABG Hemoglobin ABG Oxyhemoglobin VBG pH ABG Sodium ABG Potassium ABG Glucose Oxyhemoglobin Sodium Potassium Chloride Carbon Dioxide BUN Creatinine Glucose POC Glucose Lactic Acid Calcium Ferritin 223.6 H AST Alkaline Phosphatase Magnesium Lactate Dehydrogenase 367 H Total Creatine Kinase CK-MB (CK-2) C-Reactive Protein 3.60 H Total Protein Albumin Troponin T HDL Cholesterol Arterial Blood Glucose Urine WBC (Auto) Urine Creatinine Urine Total Protein Phenytoin Coronavirus (PCR) Crossmatch 06/29/20 06/29/20 06/29/20 18:27 23:35 Unknown WBC RBC Hgb Hct MCHC RDW Lymph % (Auto) [place] % (Auto) Eos % (Auto) Lymph # [place] # Lymph # (Auto) [place] # (Auto) Eos # (Auto) Seg Neutrophils % Seg Neuts % (Manual) Lymphocytes % (Manual) Seg Neutrophils # Seg Neutrophils # Man Lymphocytes # (Manual) Monocytes % (Manual) Eosinophils % (Manual) Monocytes # (Manual) Eosinophils # (Manual) D-Dimer Heparin Anti-Xa Level ABG pH POC ABG pCO2 POC ABG pO2 ABG pO2 ABG HCO3 ABG O2 Saturation ABG Base Excess ABG Hemoglobin ABG Oxyhemoglobin VBG pH ABG Sodium ABG Potassium ABG Glucose Oxyhemoglobin Sodium Potassium Chloride Carbon Dioxide BUN Creatinine Glucose POC Glucose 112 H 140 H Lactic Acid Calcium Ferritin AST Alkaline Phosphatase Magnesium Lactate Dehydrogenase Total Creatine Kinase CK-MB (CK-2) C-Reactive Protein Total Protein Albumin Troponin T HDL Cholesterol Arterial Blood Glucose Urine WBC (Auto) Urine Creatinine Urine Total Protein Phenytoin Coronavirus (PCR) Positive A Crossmatch 06/30/20 06/30/20 06/30/20 04:10 04:10 06:09 WBC RBC 2.44 L Hgb 7.1 L Hct 21.5 L MCHC RDW 16.6 H Lymph % (Auto) 11.0 L [place] % (Auto) 10.8 H Eos % (Auto) Lymph # 0.9 L [place] # 0.9 H Lymph # (Auto) [place] # (Auto) Eos # (Auto) Seg Neutrophils % 73.7 H Seg Neuts % (Manual) Lymphocytes % (Manual) Seg Neutrophils # Seg Neutrophils # Man Lymphocytes # (Manual) Monocytes % (Manual) Eosinophils % (Manual) Monocytes # (Manual) Eosinophils # (Manual) D-Dimer Heparin Anti-Xa Level ABG pH POC ABG pCO2 POC ABG pO2 ABG pO2 ABG HCO3 ABG O2 Saturation ABG Base Excess ABG Hemoglobin ABG Oxyhemoglobin VBG pH ABG Sodium ABG Potassium ABG Glucose Oxyhemoglobin Sodium Potassium Chloride 109.1 H Carbon Dioxide BUN 74 H Creatinine 1.3 H Glucose 191 H POC Glucose 187 H Lactic Acid Calcium 7.8 L Ferritin AST Alkaline Phosphatase Magnesium Lactate Dehydrogenase Total Creatine Kinase CK-MB (CK-2) C-Reactive Protein Total Protein Albumin Troponin T HDL Cholesterol Arterial Blood Glucose Urine WBC (Auto) Urine Creatinine Urine Total Protein Phenytoin Coronavirus (PCR) Crossmatch 06/30/20 06/30/20 06/30/20 12:04 17:43 23:41 WBC RBC Hgb Hct MCHC RDW Lymph % (Auto) [place] % (Auto) Eos % (Auto) Lymph # [place] # Lymph # (Auto) [place] # (Auto) Eos # (Auto) Seg Neutrophils % Seg Neuts % (Manual) Lymphocytes % (Manual) Seg Neutrophils # Seg Neutrophils # Man Lymphocytes # (Manual) Monocytes % (Manual) Eosinophils % (Manual) Monocytes # (Manual) Eosinophils # (Manual) D-Dimer Heparin Anti-Xa Level ABG pH POC ABG pCO2 POC ABG pO2 ABG pO2 ABG HCO3 ABG O2 Saturation ABG Base Excess ABG Hemoglobin ABG Oxyhemoglobin VBG pH ABG Sodium ABG Potassium ABG Glucose Oxyhemoglobin Sodium Potassium Chloride Carbon Dioxide BUN Creatinine Glucose POC Glucose 112 H 177 H 143 H Lactic Acid Calcium Ferritin AST Alkaline Phosphatase Magnesium Lactate Dehydrogenase Total Creatine Kinase CK-MB (CK-2) C-Reactive Protein Total Protein Albumin Troponin T HDL Cholesterol Arterial Blood Glucose Urine WBC (Auto) Urine Creatinine Urine Total Protein Phenytoin Coronavirus (PCR) Crossmatch 07/01/20 07/01/20 07/01/20 05:02 05:52 06:01 WBC 12.6 H RBC 2.95 L Hgb 8.2 L Hct 26.0 L MCHC RDW 16.9 H Lymph % (Auto) [place] % (Auto) Eos % (Auto) Lymph # [place] # Lymph # (Auto) [place] # (Auto) Eos # (Auto) Seg Neutrophils % Seg Neuts % (Manual) Lymphocytes % (Manual) Seg Neutrophils # Seg Neutrophils # Man 8.6 H Lymphocytes # (Manual) Monocytes % (Manual) Eosinophils % (Manual) 5.0 H Monocytes # (Manual) Eosinophils # (Manual) 0.6 H D-Dimer Heparin Anti-Xa Level ABG pH POC ABG pCO2 POC ABG pO2 ABG pO2 ABG HCO3 ABG O2 Saturation ABG Base Excess ABG Hemoglobin 8.2 L ABG Oxyhemoglobin VBG pH ABG Sodium ABG Potassium ABG Glucose Oxyhemoglobin Sodium Potassium Chloride Carbon Dioxide BUN Creatinine Glucose POC Glucose 129 H Lactic Acid Calcium Ferritin AST Alkaline Phosphatase Magnesium Lactate Dehydrogenase Total Creatine Kinase CK-MB (CK-2) C-Reactive Protein Total Protein Albumin Troponin T HDL Cholesterol Arterial Blood Glucose Urine WBC (Auto) Urine Creatinine Urine Total Protein Phenytoin Coronavirus (PCR) Crossmatch 07/01/20 07/01/20 07/01/20 06:01 06:01 06:08 WBC RBC Hgb Hct MCHC RDW Lymph % (Auto) [place] % (Auto) Eos % (Auto) Lymph # [place] # Lymph # (Auto) [place] # (Auto) Eos # (Auto) Seg Neutrophils % Seg Neuts % (Manual) Lymphocytes % (Manual) Seg Neutrophils # Seg Neutrophils # Man Lymphocytes # (Manual) Monocytes % (Manual) Eosinophils % (Manual) Monocytes # (Manual) Eosinophils # (Manual) D-Dimer Heparin Anti-Xa Level ABG pH POC ABG pCO2 POC ABG pO2 ABG pO2 ABG HCO3 ABG O2 Saturation ABG Base Excess ABG Hemoglobin ABG Oxyhemoglobin VBG pH ABG Sodium ABG Potassium ABG Glucose Oxyhemoglobin Sodium 147 H Potassium Chloride 108.0 H Carbon Dioxide BUN 71 H Creatinine 1.3 H Glucose 193 H POC Glucose 192 H Lactic Acid Calcium 8.1 L Ferritin AST Alkaline Phosphatase Magnesium Lactate Dehydrogenase Total Creatine Kinase 300 H CK-MB (CK-2) C-Reactive Protein Total Protein Albumin Troponin T 0.067 H HDL Cholesterol 61 H Arterial Blood Glucose Urine WBC (Auto) Urine Creatinine Urine Total Protein Phenytoin Coronavirus (PCR) Crossmatch 07/01/20 07/01/20 07/02/20 12:23 17:40 00:18 WBC RBC Hgb Hct MCHC RDW Lymph % (Auto) [place] % (Auto) Eos % (Auto) Lymph # [place] # Lymph # (Auto) [place] # (Auto) Eos # (Auto) Seg Neutrophils % Seg Neuts % (Manual) Lymphocytes % (Manual) Seg Neutrophils # Seg Neutrophils # Man Lymphocytes # (Manual) Monocytes % (Manual) Eosinophils % (Manual) Monocytes # (Manual) Eosinophils # (Manual) D-Dimer Heparin Anti-Xa Level ABG pH POC ABG pCO2 POC ABG pO2 ABG pO2 ABG HCO3 ABG O2 Saturation ABG Base Excess ABG Hemoglobin ABG Oxyhemoglobin VBG pH ABG Sodium ABG Potassium ABG Glucose Oxyhemoglobin Sodium Potassium Chloride Carbon Dioxide BUN Creatinine Glucose POC Glucose 111 H 135 H 145 H Lactic Acid Calcium Ferritin AST Alkaline Phosphatase Magnesium Lactate Dehydrogenase Total Creatine Kinase CK-MB (CK-2) C-Reactive Protein Total Protein Albumin Troponin T HDL Cholesterol Arterial Blood Glucose Urine WBC (Auto) Urine Creatinine Urine Total Protein Phenytoin Coronavirus (PCR) Crossmatch 07/02/20 07/02/20 07/02/20 04:11 04:23 05:54 WBC RBC Hgb Hct MCHC RDW Lymph % (Auto) [place] % (Auto) Eos % (Auto) Lymph # [place] # Lymph # (Auto) [place] # (Auto) Eos # (Auto) Seg Neutrophils % Seg Neuts % (Manual) Lymphocytes % (Manual) Seg Neutrophils # Seg Neutrophils # Man Lymphocytes # (Manual) Monocytes % (Manual) Eosinophils % (Manual) Monocytes # (Manual) Eosinophils # (Manual) D-Dimer Heparin Anti-Xa Level ABG pH POC ABG pCO2 POC ABG pO2 ABG pO2 ABG HCO3 ABG O2 Saturation ABG Base Excess ABG Hemoglobin 5.4 L ABG Oxyhemoglobin VBG pH ABG Sodium ABG Potassium ABG Glucose Oxyhemoglobin Sodium Potassium Chloride 108.6 H Carbon Dioxide BUN 72 H Creatinine Glucose 112 H POC Glucose 137 H Lactic Acid Calcium 7.8 L Ferritin AST Alkaline Phosphatase Magnesium Lactate Dehydrogenase Total Creatine Kinase CK-MB (CK-2) C-Reactive Protein Total Protein Albumin Troponin T HDL Cholesterol Arterial Blood Glucose Urine WBC (Auto) Urine Creatinine Urine Total Protein Phenytoin Coronavirus (PCR) Crossmatch 07/02/20 07/02/20 07/02/20 11:38 18:04 23:59 WBC RBC Hgb Hct MCHC RDW Lymph % (Auto) [place] % (Auto) Eos % (Auto) Lymph # [place] # Lymph # (Auto) [place] # (Auto) Eos # (Auto) Seg Neutrophils % Seg Neuts % (Manual) Lymphocytes % (Manual) Seg Neutrophils # Seg Neutrophils # Man Lymphocytes # (Manual) Monocytes % (Manual) Eosinophils % (Manual) Monocytes # (Manual) Eosinophils # (Manual) D-Dimer Heparin Anti-Xa Level ABG pH POC ABG pCO2 POC ABG pO2 ABG pO2 ABG HCO3 ABG O2 Saturation ABG Base Excess ABG Hemoglobin ABG Oxyhemoglobin VBG pH ABG Sodium ABG Potassium ABG Glucose Oxyhemoglobin Sodium Potassium Chloride Carbon Dioxide BUN Creatinine Glucose POC Glucose 128 H 135 H 156 H Lactic Acid Calcium Ferritin AST Alkaline Phosphatase Magnesium Lactate Dehydrogenase Total Creatine Kinase CK-MB (CK-2) C-Reactive Protein Total Protein Albumin Troponin T HDL Cholesterol Arterial Blood Glucose Urine WBC (Auto) Urine Creatinine Urine Total Protein Phenytoin Coronavirus (PCR) Crossmatch 07/03/20 07/03/20 07/03/20 03:49 06:00 11:31 WBC RBC Hgb Hct MCHC RDW Lymph % (Auto) [place] % (Auto) Eos % (Auto) Lymph # [place] # Lymph # (Auto) [place] # (Auto) Eos # (Auto) Seg Neutrophils % Seg Neuts % (Manual) Lymphocytes % (Manual) Seg Neutrophils # Seg Neutrophils # Man Lymphocytes # (Manual) Monocytes % (Manual) Eosinophils % (Manual) Monocytes # (Manual) Eosinophils # (Manual) D-Dimer Heparin Anti-Xa Level ABG pH POC ABG pCO2 POC ABG pO2 ABG pO2 121.0 H ABG HCO3 ABG O2 Saturation ABG Base Excess ABG Hemoglobin 8.5 L ABG Oxyhemoglobin VBG pH ABG Sodium ABG Potassium ABG Glucose Oxyhemoglobin Sodium Potassium Chloride Carbon Dioxide BUN Creatinine Glucose POC Glucose 135 H 141 H Lactic Acid Calcium Ferritin AST Alkaline Phosphatase Magnesium Lactate Dehydrogenase Total Creatine Kinase CK-MB (CK-2) C-Reactive Protein Total Protein Albumin Troponin T HDL Cholesterol Arterial Blood Glucose Urine WBC (Auto) Urine Creatinine Urine Total Protein Phenytoin Coronavirus (PCR) Crossmatch 09/07/03/20 07/04/20 16:07 17:40 05:49 WBC RBC Hgb Hct MCHC RDW Lymph % (Auto) [place] % (Auto) Eos % (Auto) Lymph # [place] # Lymph # (Auto) [place] # (Auto) Eos # (Auto) Seg Neutrophils % Seg Neuts % (Manual) Lymphocytes % (Manual) Seg Neutrophils # Seg Neutrophils # Man Lymphocytes # (Manual) Monocytes % (Manual) Eosinophils % (Manual) Monocytes # (Manual) Eosinophils # (Manual) D-Dimer Heparin Anti-Xa Level ABG pH POC ABG pCO2 POC ABG pO2 ABG pO2 126.9 H ABG HCO3 ABG O2 Saturation ABG Base Excess ABG Hemoglobin 8.1 L ABG Oxyhemoglobin VBG pH ABG Sodium ABG Potassium ABG Glucose Oxyhemoglobin Sodium Potassium Chloride Carbon Dioxide BUN Creatinine Glucose POC Glucose 120 H 128 H Lactic Acid Calcium Ferritin AST Alkaline Phosphatase Magnesium Lactate Dehydrogenase Total Creatine Kinase CK-MB (CK-2) C-Reactive Protein Total Protein Albumin Troponin T HDL Cholesterol Arterial Blood Glucose Urine WBC (Auto) Urine Creatinine Urine Total Protein Phenytoin Coronavirus (PCR) Crossmatch 07/04/20 07/04/20 07/05/20 11:54 18:00 00:07 WBC RBC Hgb Hct MCHC RDW Lymph % (Auto) [place] % (Auto) Eos % (Auto) Lymph # [place] # Lymph # (Auto) [place] # (Auto) Eos # (Auto) Seg Neutrophils % Seg Neuts % (Manual) Lymphocytes % (Manual) Seg Neutrophils # Seg Neutrophils # Man Lymphocytes # (Manual) Monocytes % (Manual) Eosinophils % (Manual) Monocytes # (Manual) Eosinophils # (Manual) D-Dimer Heparin Anti-Xa Level ABG pH POC ABG pCO2 POC ABG pO2 ABG pO2 ABG HCO3 ABG O2 Saturation ABG Base Excess ABG Hemoglobin ABG Oxyhemoglobin VBG pH ABG Sodium ABG Potassium ABG Glucose Oxyhemoglobin Sodium Potassium Chloride Carbon Dioxide BUN Creatinine Glucose POC Glucose 168 H 133 H 121 H Lactic Acid Calcium Ferritin AST Alkaline Phosphatase Magnesium Lactate Dehydrogenase Total Creatine Kinase CK-MB (CK-2) C-Reactive Protein Total Protein Albumin Troponin T HDL Cholesterol Arterial Blood Glucose Urine WBC (Auto) Urine Creatinine Urine Total Protein Phenytoin Coronavirus (PCR) Crossmatch 09/27/20 09/27/20 09/27/20 01:12 02:30 12:09 WBC RBC 2.35 L Hgb 6.9 L Hct 21.1 L MCHC RDW 16.8 H Lymph % (Auto) [place] % (Auto) Eos % (Auto) Lymph # [place] # Lymph # (Auto) [place] # (Auto) Eos # (Auto) Seg Neutrophils % Seg Neuts % (Manual) 74.0 H Lymphocytes % (Manual) 12.0 L Seg Neutrophils # Seg Neutrophils # Man 8.0 H Lymphocytes # (Manual) Monocytes % (Manual) 9.0 H Eosinophils % (Manual) Monocytes # (Manual) 1.0 H Eosinophils # (Manual) D-Dimer Heparin Anti-Xa Level ABG pH POC ABG pCO2 POC ABG pO2 ABG pO2 ABG HCO3 ABG O2 Saturation ABG Base Excess ABG Hemoglobin ABG Oxyhemoglobin VBG pH ABG Sodium ABG Potassium ABG Glucose Oxyhemoglobin Sodium Potassium Chloride Carbon Dioxide BUN Creatinine Glucose POC Glucose 132 H Lactic Acid Calcium Ferritin AST Alkaline Phosphatase Magnesium Lactate Dehydrogenase Total Creatine Kinase CK-MB (CK-2) C-Reactive Protein Total Protein Albumin Troponin T HDL Cholesterol Arterial Blood Glucose Urine WBC (Auto) Urine Creatinine Urine Total Protein Phenytoin Coronavirus (PCR) Crossmatch See Detail 07/05/20 07/05/20 07/05/20 13:05 18:04 23:13 WBC RBC 2.57 L Hgb 7.7 L Hct 23.0 L MCHC RDW 16.9 H Lymph % (Auto) [place] % (Auto) Eos % (Auto) Lymph # [place] # Lymph # (Auto) [place] # (Auto) Eos # (Auto) Seg Neutrophils % Seg Neuts % (Manual) Lymphocytes % (Manual) Seg Neutrophils # Seg Neutrophils # Man Lymphocytes # (Manual) Monocytes % (Manual) Eosinophils % (Manual) Monocytes # (Manual) Eosinophils # (Manual) D-Dimer Heparin Anti-Xa Level ABG pH 7.32 L POC ABG pCO2 POC ABG pO2 ABG pO2 78.3 L ABG HCO3 ABG O2 Saturation ABG Base Excess -2.6 L ABG Hemoglobin 7.3 L ABG Oxyhemoglobin VBG pH ABG Sodium ABG Potassium ABG Glucose Oxyhemoglobin Sodium Potassium Chloride Carbon Dioxide BUN Creatinine Glucose POC Glucose 160 H Lactic Acid Calcium Ferritin AST Alkaline Phosphatase Magnesium Lactate Dehydrogenase Total Creatine Kinase CK-MB (CK-2) C-Reactive Protein Total Protein Albumin Troponin T HDL Cholesterol Arterial Blood Glucose Urine WBC (Auto) Urine Creatinine Urine Total Protein Phenytoin Coronavirus (PCR) Crossmatch 07/05/20 07/05/20 07/06/20 23:13 23:43 13:20 WBC RBC Hgb Hct MCHC RDW Lymph % (Auto) [place] % (Auto) Eos % (Auto) Lymph # [place] # Lymph # (Auto) [place] # (Auto) Eos # (Auto) Seg Neutrophils % Seg Neuts % (Manual) Lymphocytes % (Manual) Seg Neutrophils # Seg Neutrophils # Man Lymphocytes # (Manual) Monocytes % (Manual) Eosinophils % (Manual) Monocytes # (Manual) Eosinophils # (Manual) D-Dimer Heparin Anti-Xa Level ABG pH POC ABG pCO2 POC ABG pO2 ABG pO2 ABG HCO3 ABG O2 Saturation ABG Base Excess ABG Hemoglobin ABG Oxyhemoglobin VBG pH ABG Sodium ABG Potassium ABG Glucose Oxyhemoglobin Sodium Potassium Chloride Carbon Dioxide 20 L BUN 80 H Creatinine 2.4 H D Glucose 124 H POC Glucose 121 H Lactic Acid Calcium 7.6 L Ferritin AST Alkaline Phosphatase Magnesium Lactate Dehydrogenase Total Creatine Kinase CK-MB (CK-2) C-Reactive Protein Total Protein Albumin Troponin T HDL Cholesterol Arterial Blood Glucose Urine WBC (Auto) Urine Creatinine 33.3 H Urine Total Protein Phenytoin Coronavirus (PCR) Crossmatch 07/06/20 07/06/20 07/07/20 14:48 17:28 00:12 WBC RBC Hgb Hct MCHC RDW Lymph % (Auto) [place] % (Auto) Eos % (Auto) Lymph # [place] # Lymph # (Auto) [place] # (Auto) Eos # (Auto) Seg Neutrophils % Seg Neuts % (Manual) Lymphocytes % (Manual) Seg Neutrophils # Seg Neutrophils # Man Lymphocytes # (Manual) Monocytes % (Manual) Eosinophils % (Manual) Monocytes # (Manual) Eosinophils # (Manual) D-Dimer Heparin Anti-Xa Level ABG pH POC ABG pCO2 POC ABG pO2 ABG pO2 ABG HCO3 ABG O2 Saturation ABG Base Excess ABG Hemoglobin ABG Oxyhemoglobin VBG pH ABG Sodium ABG Potassium ABG Glucose Oxyhemoglobin Sodium 136 L Potassium 5.5 H Chloride Carbon Dioxide 19 L BUN 82 H Creatinine 2.5 H Glucose 113 H POC Glucose 133 H 154 H Lactic Acid Calcium 7.7 L Ferritin AST Alkaline Phosphatase Magnesium Lactate Dehydrogenase Total Creatine Kinase CK-MB (CK-2) C-Reactive Protein Total Protein Albumin Troponin T HDL Cholesterol Arterial Blood Glucose Urine WBC (Auto) Urine Creatinine Urine Total Protein Phenytoin Coronavirus (PCR) Crossmatch 07/07/20 07/07/20 07/07/20 04:15 04:15 05:31 WBC RBC 2.28 L Hgb 6.8 L Hct 20.7 L MCHC RDW 16.8 H Lymph % (Auto) [place] % (Auto) Eos % (Auto) Lymph # [place] # Lymph # (Auto) [place] # (Auto) Eos # (Auto) Seg Neutrophils % Seg Neuts % (Manual) Lymphocytes % (Manual) 13.0 L Seg Neutrophils # Seg Neutrophils # Man Lymphocytes # (Manual) 1.0 L Monocytes % (Manual) 11.0 H Eosinophils % (Manual) Monocytes # (Manual) 0.9 H Eosinophils # (Manual) D-Dimer Heparin Anti-Xa Level ABG pH POC ABG pCO2 POC ABG pO2 ABG pO2 ABG HCO3 ABG O2 Saturation ABG Base Excess ABG Hemoglobin ABG Oxyhemoglobin VBG pH ABG Sodium ABG Potassium ABG Glucose Oxyhemoglobin Sodium Potassium Chloride Carbon Dioxide BUN Creatinine Glucose POC Glucose 135 H Lactic Acid Calcium Ferritin AST Alkaline Phosphatase Magnesium 2.50 H Lactate Dehydrogenase Total Creatine Kinase CK-MB (CK-2) C-Reactive Protein Total Protein Albumin Troponin T HDL Cholesterol Arterial Blood Glucose Urine WBC (Auto) Urine Creatinine Urine Total Protein Phenytoin Coronavirus (PCR) Crossmatch 07/07/20 07/07/20 07/07/20 12:31 13:22 17:55 WBC RBC Hgb Hct MCHC RDW Lymph % (Auto) [place] % (Auto) Eos % (Auto) Lymph # [place] # Lymph # (Auto) [place] # (Auto) Eos # (Auto) Seg Neutrophils % Seg Neuts % (Manual) Lymphocytes % (Manual) Seg Neutrophils # Seg Neutrophils # Man Lymphocytes # (Manual) Monocytes % (Manual) Eosinophils % (Manual) Monocytes # (Manual) Eosinophils # (Manual) D-Dimer Heparin Anti-Xa Level ABG pH POC ABG pCO2 POC ABG pO2 ABG pO2 ABG HCO3 ABG O2 Saturation ABG Base Excess ABG Hemoglobin ABG Oxyhemoglobin VBG pH ABG Sodium ABG Potassium ABG Glucose Oxyhemoglobin Sodium Potassium 5.6 H Chloride Carbon Dioxide BUN 86 H Creatinine 2.9 H Glucose 127 H POC Glucose 131 H 136 H Lactic Acid Calcium 8.1 L Ferritin AST Alkaline Phosphatase Magnesium Lactate Dehydrogenase Total Creatine Kinase CK-MB (CK-2) C-Reactive Protein Total Protein Albumin Troponin T HDL Cholesterol Arterial Blood Glucose Urine WBC (Auto) Urine Creatinine Urine Total Protein Phenytoin Coronavirus (PCR) Crossmatch 07/07/20 07/08/20 07/08/20 23:33 04:14 04:14 WBC RBC 3.28 L Hgb 9.7 L Hct 28.9 L D MCHC RDW 16.4 H Lymph % (Auto) 10.3 L [place] % (Auto) 10.0 H Eos % (Auto) Lymph # [place] # Lymph # (Auto) 1.1 L [place] # (Auto) 1.1 H Eos # (Auto) Seg Neutrophils % 77.2 H Seg Neuts % (Manual) Lymphocytes % (Manual) Seg Neutrophils # 8.2 H Seg Neutrophils # Man Lymphocytes # (Manual) Monocytes % (Manual) Eosinophils % (Manual) Monocytes # (Manual) Eosinophils # (Manual) D-Dimer Heparin Anti-Xa Level ABG pH POC ABG pCO2 POC ABG pO2 ABG pO2 ABG HCO3 ABG O2 Saturation ABG Base Excess ABG Hemoglobin ABG Oxyhemoglobin VBG pH ABG Sodium ABG Potassium ABG Glucose Oxyhemoglobin Sodium 136 L Potassium Chloride Carbon Dioxide BUN 84 H Creatinine 2.8 H Glucose 109 H POC Glucose 159 H Lactic Acid Calcium 8.1 L Ferritin AST Alkaline Phosphatase Magnesium 2.50 H Lactate Dehydrogenase Total Creatine Kinase CK-MB (CK-2) C-Reactive Protein Total Protein Albumin Troponin T HDL Cholesterol Arterial Blood Glucose Urine WBC (Auto) Urine Creatinine Urine Total Protein Phenytoin Coronavirus (PCR) Crossmatch 07/08/20 07/08/20 07/08/20 12:10 18:10 23:50 WBC RBC Hgb Hct MCHC RDW Lymph % (Auto) [place] % (Auto) Eos % (Auto) Lymph # [place] # Lymph # (Auto) [place] # (Auto) Eos # (Auto) Seg Neutrophils % Seg Neuts % (Manual) Lymphocytes % (Manual) Seg Neutrophils # Seg Neutrophils # Man Lymphocytes # (Manual) Monocytes % (Manual) Eosinophils % (Manual) Monocytes # (Manual) Eosinophils # (Manual) D-Dimer Heparin Anti-Xa Level ABG pH POC ABG pCO2 POC ABG pO2 ABG pO2 ABG HCO3 ABG O2 Saturation ABG Base Excess ABG Hemoglobin ABG Oxyhemoglobin VBG pH ABG Sodium ABG Potassium ABG Glucose Oxyhemoglobin Sodium Potassium Chloride Carbon Dioxide BUN Creatinine Glucose POC Glucose 108 H 125 H 141 H Lactic Acid Calcium Ferritin AST Alkaline Phosphatase Magnesium Lactate Dehydrogenase Total Creatine Kinase CK-MB (CK-2) C-Reactive Protein Total Protein Albumin Troponin T HDL Cholesterol Arterial Blood Glucose Urine WBC (Auto) Urine Creatinine Urine Total Protein Phenytoin Coronavirus (PCR) Crossmatch 07/09/20 07/09/20 07/09/20 05:39 11:57 17:56 WBC RBC Hgb Hct MCHC RDW Lymph % (Auto) [place] % (Auto) Eos % (Auto) Lymph # [place] # Lymph # (Auto) [place] # (Auto) Eos # (Auto) Seg Neutrophils % Seg Neuts % (Manual) Lymphocytes % (Manual) Seg Neutrophils # Seg Neutrophils # Man Lymphocytes # (Manual) Monocytes % (Manual) Eosinophils % (Manual) Monocytes # (Manual) Eosinophils # (Manual) D-Dimer Heparin Anti-Xa Level ABG pH POC ABG pCO2 POC ABG pO2 ABG pO2 ABG HCO3 ABG O2 Saturation ABG Base Excess ABG Hemoglobin ABG Oxyhemoglobin VBG pH ABG Sodium ABG Potassium ABG Glucose Oxyhemoglobin Sodium Potassium Chloride Carbon Dioxide BUN Creatinine Glucose POC Glucose 121 H 123 H 119 H Lactic Acid Calcium Ferritin AST Alkaline Phosphatase Magnesium Lactate Dehydrogenase Total Creatine Kinase CK-MB (CK-2) C-Reactive Protein Total Protein Albumin Troponin T HDL Cholesterol Arterial Blood Glucose Urine WBC (Auto) Urine Creatinine Urine Total Protein Phenytoin Coronavirus (PCR) Crossmatch 07/10/20 07/10/20 07/10/20 00:29 05:50 10:41 WBC RBC 3.11 L Hgb 9.2 L Hct 27.6 L MCHC RDW 16.6 H Lymph % (Auto) [place] % (Auto) Eos % (Auto) Lymph # [place] # Lymph # (Auto) [place] # (Auto) Eos # (Auto) Seg Neutrophils % Seg Neuts % (Manual) 78.0 H Lymphocytes % (Manual) 11.0 L Seg Neutrophils # Seg Neutrophils # Man Lymphocytes # (Manual) 1.0 L Monocytes % (Manual) Eosinophils % (Manual) Monocytes # (Manual) Eosinophils # (Manual) D-Dimer Heparin Anti-Xa Level ABG pH POC ABG pCO2 POC ABG pO2 ABG pO2 ABG HCO3 ABG O2 Saturation ABG Base Excess ABG Hemoglobin ABG Oxyhemoglobin VBG pH ABG Sodium ABG Potassium ABG Glucose Oxyhemoglobin Sodium Potassium Chloride Carbon Dioxide BUN Creatinine Glucose POC Glucose 122 H 124 H Lactic Acid Calcium Ferritin AST Alkaline Phosphatase Magnesium Lactate Dehydrogenase Total Creatine Kinase CK-MB (CK-2) C-Reactive Protein Total Protein Albumin Troponin T HDL Cholesterol Arterial Blood Glucose Urine WBC (Auto) Urine Creatinine Urine Total Protein Phenytoin Coronavirus (PCR) Crossmatch 07/10/20 07/10/20 07/10/20 10:41 12:25 18:10 WBC RBC Hgb Hct MCHC RDW Lymph % (Auto) [place] % (Auto) Eos % (Auto) Lymph # [place] # Lymph # (Auto) [place] # (Auto) Eos # (Auto) Seg Neutrophils % Seg Neuts % (Manual) Lymphocytes % (Manual) Seg Neutrophils # Seg Neutrophils # Man Lymphocytes # (Manual) Monocytes % (Manual) Eosinophils % (Manual) Monocytes # (Manual) Eosinophils # (Manual) D-Dimer Heparin Anti-Xa Level ABG pH POC ABG pCO2 POC ABG pO2 ABG pO2 ABG HCO3 ABG O2 Saturation ABG Base Excess ABG Hemoglobin ABG Oxyhemoglobin VBG pH ABG Sodium ABG Potassium ABG Glucose Oxyhemoglobin Sodium Potassium Chloride Carbon Dioxide BUN 85 H Creatinine 2.5 H Glucose 133 H POC Glucose 131 H 134 H Lactic Acid Calcium Ferritin AST Alkaline Phosphatase 131 H Magnesium Lactate Dehydrogenase Total Creatine Kinase CK-MB (CK-2) C-Reactive Protein Total Protein 5.2 L Albumin 1.6 L Troponin T HDL Cholesterol Arterial Blood Glucose Urine WBC (Auto) Urine Creatinine Urine Total Protein Phenytoin Coronavirus (PCR) Crossmatch 07/11/20 07/11/20 07/11/20 00:28 05:57 12:14 WBC RBC Hgb Hct MCHC RDW Lymph % (Auto) [place] % (Auto) Eos % (Auto) Lymph # [place] # Lymph # (Auto) [place] # (Auto) Eos # (Auto) Seg Neutrophils % Seg Neuts % (Manual) Lymphocytes % (Manual) Seg Neutrophils # Seg Neutrophils # Man Lymphocytes # (Manual) Monocytes % (Manual) Eosinophils % (Manual) Monocytes # (Manual) Eosinophils # (Manual) D-Dimer Heparin Anti-Xa Level ABG pH POC ABG pCO2 POC ABG pO2 ABG pO2 ABG HCO3 ABG O2 Saturation ABG Base Excess ABG Hemoglobin ABG Oxyhemoglobin VBG pH ABG Sodium ABG Potassium ABG Glucose Oxyhemoglobin Sodium Potassium Chloride Carbon Dioxide BUN Creatinine Glucose POC Glucose 140 H 148 H 147 H Lactic Acid Calcium Ferritin AST Alkaline Phosphatase Magnesium Lactate Dehydrogenase Total Creatine Kinase CK-MB (CK-2) C-Reactive Protein Total Protein Albumin Troponin T HDL Cholesterol Arterial Blood Glucose Urine WBC (Auto) Urine Creatinine Urine Total Protein Phenytoin Coronavirus (PCR) Crossmatch 07/11/20 07/11/20 07/12/20 17:28 23:49 05:14 WBC RBC 2.78 L Hgb 8.5 L Hct 25.3 L MCHC RDW 16.7 H Lymph % (Auto) [place] % (Auto) Eos % (Auto) Lymph # [place] # Lymph # (Auto) [place] # (Auto) Eos # (Auto) Seg Neutrophils % Seg Neuts % (Manual) 81.0 H Lymphocytes % (Manual) 6.0 L Seg Neutrophils # Seg Neutrophils # Man Lymphocytes # (Manual) 0.6 L Monocytes % (Manual) 8.0 H Eosinophils % (Manual) Monocytes # (Manual) Eosinophils # (Manual) D-Dimer Heparin Anti-Xa Level ABG pH POC ABG pCO2 POC ABG pO2 ABG pO2 ABG HCO3 ABG O2 Saturation ABG Base Excess ABG Hemoglobin ABG Oxyhemoglobin VBG pH ABG Sodium ABG Potassium ABG Glucose Oxyhemoglobin Sodium Potassium Chloride Carbon Dioxide BUN Creatinine Glucose POC Glucose 175 H 114 H Lactic Acid Calcium Ferritin AST Alkaline Phosphatase Magnesium Lactate Dehydrogenase Total Creatine Kinase CK-MB (CK-2) C-Reactive Protein Total Protein Albumin Troponin T HDL Cholesterol Arterial Blood Glucose Urine WBC (Auto) Urine Creatinine Urine Total Protein Phenytoin Coronavirus (PCR) Crossmatch 07/12/20 07/12/20 07/12/20 05:14 05:44 11:32 WBC RBC Hgb Hct MCHC RDW Lymph % (Auto) [place] % (Auto) Eos % (Auto) Lymph # [place] # Lymph # (Auto) [place] # (Auto) Eos # (Auto) Seg Neutrophils % Seg Neuts % (Manual) Lymphocytes % (Manual) Seg Neutrophils # Seg Neutrophils # Man Lymphocytes # (Manual) Monocytes % (Manual) Eosinophils % (Manual) Monocytes # (Manual) Eosinophils # (Manual) D-Dimer Heparin Anti-Xa Level ABG pH POC ABG pCO2 POC ABG pO2 ABG pO2 ABG HCO3 ABG O2 Saturation ABG Base Excess ABG Hemoglobin ABG Oxyhemoglobin VBG pH ABG Sodium ABG Potassium ABG Glucose Oxyhemoglobin Sodium Potassium Chloride Carbon Dioxide BUN 79 H Creatinine 2.2 H Glucose 131 H POC Glucose 116 H 132 H Lactic Acid Calcium Ferritin AST Alkaline Phosphatase Magnesium Lactate Dehydrogenase Total Creatine Kinase CK-MB (CK-2) C-Reactive Protein Total Protein Albumin Troponin T HDL Cholesterol Arterial Blood Glucose Urine WBC (Auto) Urine Creatinine Urine Total Protein Phenytoin Coronavirus (PCR) Crossmatch 07/12/20 07/13/20 07/13/20 17:53 00:18 04:53 WBC RBC 2.86 L Hgb 8.4 L Hct 25.7 L MCHC RDW 16.8 H Lymph % (Auto) [place] % (Auto) Eos % (Auto) Lymph # [place] # Lymph # (Auto) [place] # (Auto) Eos # (Auto) Seg Neutrophils % Seg Neuts % (Manual) 84.0 H Lymphocytes % (Manual) 7.0 L Seg Neutrophils # Seg Neutrophils # Man Lymphocytes # (Manual) 0.6 L Monocytes % (Manual) Eosinophils % (Manual) Monocytes # (Manual) Eosinophils # (Manual) D-Dimer Heparin Anti-Xa Level ABG pH POC ABG pCO2 POC ABG pO2 ABG pO2 ABG HCO3 ABG O2 Saturation ABG Base Excess ABG Hemoglobin ABG Oxyhemoglobin VBG pH ABG Sodium ABG Potassium ABG Glucose Oxyhemoglobin Sodium Potassium Chloride Carbon Dioxide BUN Creatinine Glucose POC Glucose 155 H 162 H Lactic Acid Calcium Ferritin AST Alkaline Phosphatase Magnesium Lactate Dehydrogenase Total Creatine Kinase CK-MB (CK-2) C-Reactive Protein Total Protein Albumin Troponin T HDL Cholesterol Arterial Blood Glucose Urine WBC (Auto) Urine Creatinine Urine Total Protein Phenytoin Coronavirus (PCR) Crossmatch 07/13/20 07/13/20 07/13/20 04:53 06:14 12:50 WBC RBC Hgb Hct MCHC RDW Lymph % (Auto) [place] % (Auto) Eos % (Auto) Lymph # [place] # Lymph # (Auto) [place] # (Auto) Eos # (Auto) Seg Neutrophils % Seg Neuts % (Manual) Lymphocytes % (Manual) Seg Neutrophils # Seg Neutrophils # Man Lymphocytes # (Manual) Monocytes % (Manual) Eosinophils % (Manual) Monocytes # (Manual) Eosinophils # (Manual) D-Dimer Heparin Anti-Xa Level ABG pH POC ABG pCO2 POC ABG pO2 ABG pO2 ABG HCO3 ABG O2 Saturation ABG Base Excess ABG Hemoglobin ABG Oxyhemoglobin VBG pH ABG Sodium ABG Potassium ABG Glucose Oxyhemoglobin Sodium 136 L Potassium Chloride Carbon Dioxide BUN 78 H Creatinine 2.0 H Glucose 130 H POC Glucose 141 H 146 H Lactic Acid Calcium Ferritin AST Alkaline Phosphatase Magnesium Lactate Dehydrogenase Total Creatine Kinase CK-MB (CK-2) C-Reactive Protein Total Protein Albumin Troponin T HDL Cholesterol Arterial Blood Glucose Urine WBC (Auto) Urine Creatinine Urine Total Protein Phenytoin Coronavirus (PCR) Crossmatch 07/13/20 07/14/20 07/14/20 18:27 00:22 05:43 WBC RBC Hgb Hct MCHC RDW Lymph % (Auto) [place] % (Auto) Eos % (Auto) Lymph # [place] # Lymph # (Auto) [place] # (Auto) Eos # (Auto) Seg Neutrophils % Seg Neuts % (Manual) Lymphocytes % (Manual) Seg Neutrophils # Seg Neutrophils # Man Lymphocytes # (Manual) Monocytes % (Manual) Eosinophils % (Manual) Monocytes # (Manual) Eosinophils # (Manual) D-Dimer Heparin Anti-Xa Level ABG pH POC ABG pCO2 POC ABG pO2 ABG pO2 ABG HCO3 ABG O2 Saturation ABG Base Excess ABG Hemoglobin ABG Oxyhemoglobin VBG pH ABG Sodium ABG Potassium ABG Glucose Oxyhemoglobin Sodium Potassium Chloride Carbon Dioxide BUN Creatinine Glucose POC Glucose 149 H 157 H 169 H Lactic Acid Calcium Ferritin AST Alkaline Phosphatase Magnesium Lactate Dehydrogenase Total Creatine Kinase CK-MB (CK-2) C-Reactive Protein Total Protein Albumin Troponin T HDL Cholesterol Arterial Blood Glucose Urine WBC (Auto) Urine Creatinine Urine Total Protein Phenytoin Coronavirus (PCR) Crossmatch 07/14/20 07/14/20 07/14/20 08:04 12:12 17:23 WBC RBC Hgb Hct MCHC RDW Lymph % (Auto) [place] % (Auto) Eos % (Auto) Lymph # [place] # Lymph # (Auto) [place] # (Auto) Eos # (Auto) Seg Neutrophils % Seg Neuts % (Manual) Lymphocytes % (Manual) Seg Neutrophils # Seg Neutrophils # Man Lymphocytes # (Manual) Monocytes % (Manual) Eosinophils % (Manual) Monocytes # (Manual) Eosinophils # (Manual) D-Dimer Heparin Anti-Xa Level ABG pH POC ABG pCO2 POC ABG pO2 ABG pO2 ABG HCO3 ABG O2 Saturation ABG Base Excess ABG Hemoglobin ABG Oxyhemoglobin VBG pH ABG Sodium ABG Potassium ABG Glucose Oxyhemoglobin Sodium Potassium Chloride Carbon Dioxide BUN Creatinine Glucose POC Glucose 185 H 138 H Lactic Acid Calcium Ferritin AST Alkaline Phosphatase Magnesium Lactate Dehydrogenase Total Creatine Kinase CK-MB (CK-2) C-Reactive Protein Total Protein Albumin Troponin T HDL Cholesterol Arterial Blood Glucose Urine WBC (Auto) Urine Creatinine Urine Total Protein Phenytoin Coronavirus (PCR) Positive A Crossmatch 07/15/20 07/15/20 07/15/20 00:04 06:06 12:00 WBC RBC Hgb Hct MCHC RDW Lymph % (Auto) [place] % (Auto) Eos % (Auto) Lymph # [place] # Lymph # (Auto) [place] # (Auto) Eos # (Auto) Seg Neutrophils % Seg Neuts % (Manual) Lymphocytes % (Manual) Seg Neutrophils # Seg Neutrophils # Man Lymphocytes # (Manual) Monocytes % (Manual) Eosinophils % (Manual) Monocytes # (Manual) Eosinophils # (Manual) D-Dimer Heparin Anti-Xa Level ABG pH POC ABG pCO2 POC ABG pO2 ABG pO2 ABG HCO3 ABG O2 Saturation ABG Base Excess ABG Hemoglobin ABG Oxyhemoglobin VBG pH ABG Sodium ABG Potassium ABG Glucose Oxyhemoglobin Sodium Potassium Chloride Carbon Dioxide BUN Creatinine Glucose POC Glucose 121 H 140 H 137 H Lactic Acid Calcium Ferritin AST Alkaline Phosphatase Magnesium Lactate Dehydrogenase Total Creatine Kinase CK-MB (CK-2) C-Reactive Protein Total Protein Albumin Troponin T HDL Cholesterol Arterial Blood Glucose Urine WBC (Auto) Urine Creatinine Urine Total Protein Phenytoin Coronavirus (PCR) Crossmatch 07/15/20 07/15/20 07/16/20 17:53 23:53 05:26 WBC RBC Hgb Hct MCHC RDW Lymph % (Auto) [place] % (Auto) Eos % (Auto) Lymph # [place] # Lymph # (Auto) [place] # (Auto) Eos # (Auto) Seg Neutrophils % Seg Neuts % (Manual) Lymphocytes % (Manual) Seg Neutrophils # Seg Neutrophils # Man Lymphocytes # (Manual) Monocytes % (Manual) Eosinophils % (Manual) Monocytes # (Manual) Eosinophils # (Manual) D-Dimer Heparin Anti-Xa Level ABG pH POC ABG pCO2 POC ABG pO2 ABG pO2 ABG HCO3 ABG O2 Saturation ABG Base Excess ABG Hemoglobin ABG Oxyhemoglobin VBG pH ABG Sodium ABG Potassium ABG Glucose Oxyhemoglobin Sodium Potassium Chloride Carbon Dioxide BUN Creatinine Glucose POC Glucose 161 H 156 H 152 H Lactic Acid Calcium Ferritin AST Alkaline Phosphatase Magnesium Lactate Dehydrogenase Total Creatine Kinase CK-MB (CK-2) C-Reactive Protein Total Protein Albumin Troponin T HDL Cholesterol Arterial Blood Glucose Urine WBC (Auto) Urine Creatinine Urine Total Protein Phenytoin Coronavirus (PCR) Crossmatch 07/16/20 07/17/20 07/17/20 17:44 00:07 12:06 WBC RBC Hgb Hct MCHC RDW Lymph % (Auto) [place] % (Auto) Eos % (Auto) Lymph # [place] # Lymph # (Auto) [place] # (Auto) Eos # (Auto) Seg Neutrophils % Seg Neuts % (Manual) Lymphocytes % (Manual) Seg Neutrophils # Seg Neutrophils # Man Lymphocytes # (Manual) Monocytes % (Manual) Eosinophils % (Manual) Monocytes # (Manual) Eosinophils # (Manual) D-Dimer Heparin Anti-Xa Level ABG pH POC ABG pCO2 POC ABG pO2 ABG pO2 ABG HCO3 ABG O2 Saturation ABG Base Excess ABG Hemoglobin ABG Oxyhemoglobin VBG pH ABG Sodium ABG Potassium ABG Glucose Oxyhemoglobin Sodium Potassium Chloride Carbon Dioxide BUN Creatinine Glucose POC Glucose 126 H 189 H 155 H Lactic Acid Calcium Ferritin AST Alkaline Phosphatase Magnesium Lactate Dehydrogenase Total Creatine Kinase CK-MB (CK-2) C-Reactive Protein Total Protein Albumin Troponin T HDL Cholesterol Arterial Blood Glucose Urine WBC (Auto) Urine Creatinine Urine Total Protein Phenytoin Coronavirus (PCR) Crossmatch 07/17/20 07/17/20 07/18/20 18:20 23:25 04:24 WBC RBC Hgb Hct MCHC RDW Lymph % (Auto) [place] % (Auto) Eos % (Auto) Lymph # [place] # Lymph # (Auto) [place] # (Auto) Eos # (Auto) Seg Neutrophils % Seg Neuts % (Manual) Lymphocytes % (Manual) Seg Neutrophils # Seg Neutrophils # Man Lymphocytes # (Manual) Monocytes % (Manual) Eosinophils % (Manual) Monocytes # (Manual) Eosinophils # (Manual) D-Dimer Heparin Anti-Xa Level ABG pH POC ABG pCO2 POC ABG pO2 ABG pO2 ABG HCO3 ABG O2 Saturation ABG Base Excess ABG Hemoglobin 8.8 L ABG Oxyhemoglobin VBG pH ABG Sodium 131.6 L ABG Potassium 4.9 H ABG Glucose 131 H Oxyhemoglobin Sodium Potassium Chloride Carbon Dioxide BUN Creatinine Glucose POC Glucose 206 H 161 H Lactic Acid Calcium Ferritin AST Alkaline Phosphatase Magnesium Lactate Dehydrogenase Total Creatine Kinase CK-MB (CK-2) C-Reactive Protein Total Protein Albumin Troponin T HDL Cholesterol Arterial Blood Glucose 131 H Urine WBC (Auto) Urine Creatinine Urine Total Protein Phenytoin Coronavirus (PCR) Crossmatch 07/18/20 07/18/20 07/18/20 05:16 11:53 18:11 WBC RBC Hgb Hct MCHC RDW Lymph % (Auto) [place] % (Auto) Eos % (Auto) Lymph # [place] # Lymph # (Auto) [place] # (Auto) Eos # (Auto) Seg Neutrophils % Seg Neuts % (Manual) Lymphocytes % (Manual) Seg Neutrophils # Seg Neutrophils # Man Lymphocytes # (Manual) Monocytes % (Manual) Eosinophils % (Manual) Monocytes # (Manual) Eosinophils # (Manual) D-Dimer Heparin Anti-Xa Level ABG pH POC ABG pCO2 POC ABG pO2 ABG pO2 ABG HCO3 ABG O2 Saturation ABG Base Excess ABG Hemoglobin ABG Oxyhemoglobin VBG pH ABG Sodium ABG Potassium ABG Glucose Oxyhemoglobin Sodium Potassium Chloride Carbon Dioxide BUN Creatinine Glucose POC Glucose 140 H 176 H 143 H Lactic Acid Calcium Ferritin AST Alkaline Phosphatase Magnesium Lactate Dehydrogenase Total Creatine Kinase CK-MB (CK-2) C-Reactive Protein Total Protein Albumin Troponin T HDL Cholesterol Arterial Blood Glucose Urine WBC (Auto) Urine Creatinine Urine Total Protein Phenytoin Coronavirus (PCR) Crossmatch 07/18/20 07/19/20 07/19/20 23:51 01:05 01:05 WBC RBC 2.76 L Hgb 7.9 L Hct 24.5 L MCHC RDW 17.6 H Lymph % (Auto) 11.6 L [place] % (Auto) 13.1 H Eos % (Auto) Lymph # [place] # Lymph # (Auto) 1.0 L [place] # (Auto) 1.1 H Eos # (Auto) Seg Neutrophils % 70.9 H Seg Neuts % (Manual) Lymphocytes % (Manual) Seg Neutrophils # Seg Neutrophils # Man Lymphocytes # (Manual) Monocytes % (Manual) Eosinophils % (Manual) Monocytes # (Manual) Eosinophils # (Manual) D-Dimer Heparin Anti-Xa Level ABG pH POC ABG pCO2 POC ABG pO2 ABG pO2 ABG HCO3 ABG O2 Saturation ABG Base Excess ABG Hemoglobin ABG Oxyhemoglobin VBG pH ABG Sodium ABG Potassium ABG Glucose Oxyhemoglobin Sodium Potassium Chloride Carbon Dioxide BUN 86 H Creatinine 1.7 H Glucose 149 H POC Glucose 159 H Lactic Acid Calcium Ferritin AST Alkaline Phosphatase Magnesium Lactate Dehydrogenase Total Creatine Kinase CK-MB (CK-2) C-Reactive Protein Total Protein Albumin Troponin T HDL Cholesterol Arterial Blood Glucose Urine WBC (Auto) Urine Creatinine Urine Total Protein Phenytoin Coronavirus (PCR) Crossmatch 07/19/20 07/19/20 07/19/20 05:54 12:46 17:48 WBC RBC Hgb Hct MCHC RDW Lymph % (Auto) [place] % (Auto) Eos % (Auto) Lymph # [place] # Lymph # (Auto) [place] # (Auto) Eos # (Auto) Seg Neutrophils % Seg Neuts % (Manual) Lymphocytes % (Manual) Seg Neutrophils # Seg Neutrophils # Man Lymphocytes # (Manual) Monocytes % (Manual) Eosinophils % (Manual) Monocytes # (Manual) Eosinophils # (Manual) D-Dimer Heparin Anti-Xa Level ABG pH POC ABG pCO2 POC ABG pO2 ABG pO2 ABG HCO3 ABG O2 Saturation ABG Base Excess ABG Hemoglobin ABG Oxyhemoglobin VBG pH ABG Sodium ABG Potassium ABG Glucose Oxyhemoglobin Sodium Potassium Chloride Carbon Dioxide BUN Creatinine Glucose POC Glucose 176 H 127 H 123 H Lactic Acid Calcium Ferritin AST Alkaline Phosphatase Magnesium Lactate Dehydrogenase Total Creatine Kinase CK-MB (CK-2) C-Reactive Protein Total Protein Albumin Troponin T HDL Cholesterol Arterial Blood Glucose Urine WBC (Auto) Urine Creatinine Urine Total Protein Phenytoin Coronavirus (PCR) Crossmatch 07/20/20 07/20/20 07/20/20 00:34 05:28 12:10 WBC RBC Hgb Hct MCHC RDW Lymph % (Auto) [place] % (Auto) Eos % (Auto) Lymph # [place] # Lymph # (Auto) [place] # (Auto) Eos # (Auto) Seg Neutrophils % Seg Neuts % (Manual) Lymphocytes % (Manual) Seg Neutrophils # Seg Neutrophils # Man Lymphocytes # (Manual) Monocytes % (Manual) Eosinophils % (Manual) Monocytes # (Manual) Eosinophils # (Manual) D-Dimer Heparin Anti-Xa Level ABG pH POC ABG pCO2 POC ABG pO2 ABG pO2 ABG HCO3 ABG O2 Saturation ABG Base Excess ABG Hemoglobin ABG Oxyhemoglobin VBG pH ABG Sodium ABG Potassium ABG Glucose Oxyhemoglobin Sodium Potassium Chloride Carbon Dioxide BUN Creatinine Glucose POC Glucose 147 H 110 H 149 H Lactic Acid Calcium Ferritin AST Alkaline Phosphatase Magnesium Lactate Dehydrogenase Total Creatine Kinase CK-MB (CK-2) C-Reactive Protein Total Protein Albumin Troponin T HDL Cholesterol Arterial Blood Glucose Urine WBC (Auto) Urine Creatinine Urine Total Protein Phenytoin Coronavirus (PCR) Crossmatch 07/20/20 07/21/20 07/21/20 17:00 00:11 05:30 WBC RBC Hgb Hct MCHC RDW Lymph % (Auto) [place] % (Auto) Eos % (Auto) Lymph # [place] # Lymph # (Auto) [place] # (Auto) Eos # (Auto) Seg Neutrophils % Seg Neuts % (Manual) Lymphocytes % (Manual) Seg Neutrophils # Seg Neutrophils # Man Lymphocytes # (Manual) Monocytes % (Manual) Eosinophils % (Manual) Monocytes # (Manual) Eosinophils # (Manual) D-Dimer Heparin Anti-Xa Level ABG pH POC ABG pCO2 POC ABG pO2 ABG pO2 ABG HCO3 ABG O2 Saturation ABG Base Excess ABG Hemoglobin ABG Oxyhemoglobin VBG pH ABG Sodium ABG Potassium ABG Glucose Oxyhemoglobin Sodium Potassium Chloride Carbon Dioxide BUN Creatinine Glucose POC Glucose 173 H 128 H 153 H Lactic Acid Calcium Ferritin AST Alkaline Phosphatase Magnesium Lactate Dehydrogenase Total Creatine Kinase CK-MB (CK-2) C-Reactive Protein Total Protein Albumin Troponin T HDL Cholesterol Arterial Blood Glucose Urine WBC (Auto) Urine Creatinine Urine Total Protein Phenytoin Coronavirus (PCR) Crossmatch 07/21/20 07/21/20 07/22/20 12:21 18:17 00:45 WBC RBC Hgb Hct MCHC RDW Lymph % (Auto) [place] % (Auto) Eos % (Auto) Lymph # [place] # Lymph # (Auto) [place] # (Auto) Eos # (Auto) Seg Neutrophils % Seg Neuts % (Manual) Lymphocytes % (Manual) Seg Neutrophils # Seg Neutrophils # Man Lymphocytes # (Manual) Monocytes % (Manual) Eosinophils % (Manual) Monocytes # (Manual) Eosinophils # (Manual) D-Dimer Heparin Anti-Xa Level ABG pH POC ABG pCO2 POC ABG pO2 ABG pO2 ABG HCO3 ABG O2 Saturation ABG Base Excess ABG Hemoglobin ABG Oxyhemoglobin VBG pH ABG Sodium ABG Potassium ABG Glucose Oxyhemoglobin Sodium Potassium Chloride Carbon Dioxide BUN Creatinine Glucose POC Glucose 144 H 160 H 128 H Lactic Acid Calcium Ferritin AST Alkaline Phosphatase Magnesium Lactate Dehydrogenase Total Creatine Kinase CK-MB (CK-2) C-Reactive Protein Total Protein Albumin Troponin T HDL Cholesterol Arterial Blood Glucose Urine WBC (Auto) Urine Creatinine Urine Total Protein Phenytoin Coronavirus (PCR) Crossmatch 07/22/20 07/22/20 07/22/20 05:52 12:03 18:23 WBC RBC Hgb Hct MCHC RDW Lymph % (Auto) [place] % (Auto) Eos % (Auto) Lymph # [place] # Lymph # (Auto) [place] # (Auto) Eos # (Auto) Seg Neutrophils % Seg Neuts % (Manual) Lymphocytes % (Manual) Seg Neutrophils # Seg Neutrophils # Man Lymphocytes # (Manual) Monocytes % (Manual) Eosinophils % (Manual) Monocytes # (Manual) Eosinophils # (Manual) D-Dimer Heparin Anti-Xa Level ABG pH POC ABG pCO2 POC ABG pO2 ABG pO2 ABG HCO3 ABG O2 Saturation ABG Base Excess ABG Hemoglobin ABG Oxyhemoglobin VBG pH ABG Sodium ABG Potassium ABG Glucose Oxyhemoglobin Sodium Potassium Chloride Carbon Dioxide BUN Creatinine Glucose POC Glucose 126 H 157 H 152 H Lactic Acid Calcium Ferritin AST Alkaline Phosphatase Magnesium Lactate Dehydrogenase Total Creatine Kinase CK-MB (CK-2) C-Reactive Protein Total Protein Albumin Troponin T HDL Cholesterol Arterial Blood Glucose Urine WBC (Auto) Urine Creatinine Urine Total Protein Phenytoin Coronavirus (PCR) Crossmatch 07/22/20 07/23/20 07/23/20 23:20 06:06 12:11 WBC RBC Hgb Hct MCHC RDW Lymph % (Auto) [place] % (Auto) Eos % (Auto) Lymph # [place] # Lymph # (Auto) [place] # (Auto) Eos # (Auto) Seg Neutrophils % Seg Neuts % (Manual) Lymphocytes % (Manual) Seg Neutrophils # Seg Neutrophils # Man Lymphocytes # (Manual) Monocytes % (Manual) Eosinophils % (Manual) Monocytes # (Manual) Eosinophils # (Manual) D-Dimer Heparin Anti-Xa Level ABG pH POC ABG pCO2 POC ABG pO2 ABG pO2 ABG HCO3 ABG O2 Saturation ABG Base Excess ABG Hemoglobin ABG Oxyhemoglobin VBG pH ABG Sodium ABG Potassium ABG Glucose Oxyhemoglobin Sodium Potassium Chloride Carbon Dioxide BUN Creatinine Glucose POC Glucose 122 H 143 H 210 H Lactic Acid Calcium Ferritin AST Alkaline Phosphatase Magnesium Lactate Dehydrogenase Total Creatine Kinase CK-MB (CK-2) C-Reactive Protein Total Protein Albumin Troponin T HDL Cholesterol Arterial Blood Glucose Urine WBC (Auto) Urine Creatinine Urine Total Protein Phenytoin Coronavirus (PCR) Crossmatch 07/23/20 07/23/20 07/24/20 17:38 19:23 00:00 WBC RBC Hgb Hct MCHC RDW Lymph % (Auto) [place] % (Auto) Eos % (Auto) Lymph # [place] # Lymph # (Auto) [place] # (Auto) Eos # (Auto) Seg Neutrophils % Seg Neuts % (Manual) Lymphocytes % (Manual) Seg Neutrophils # Seg Neutrophils # Man Lymphocytes # (Manual) Monocytes % (Manual) Eosinophils % (Manual) Monocytes # (Manual) Eosinophils # (Manual) D-Dimer Heparin Anti-Xa Level ABG pH POC ABG pCO2 POC ABG pO2 ABG pO2 ABG HCO3 ABG O2 Saturation ABG Base Excess ABG Hemoglobin ABG Oxyhemoglobin VBG pH ABG Sodium ABG Potassium ABG Glucose Oxyhemoglobin Sodium 129 L D Potassium 5.8 H Chloride 95.6 L Carbon Dioxide BUN 98 H Creatinine 2.1 H Glucose 167 H POC Glucose 181 H 201 H Lactic Acid Calcium Ferritin AST Alkaline Phosphatase Magnesium Lactate Dehydrogenase Total Creatine Kinase CK-MB (CK-2) C-Reactive Protein Total Protein Albumin 2.2 L Troponin T HDL Cholesterol Arterial Blood Glucose Urine WBC (Auto) Urine Creatinine Urine Total Protein Phenytoin Coronavirus (PCR) Crossmatch 07/24/20 07/24/20 07/24/20 04:29 04:29 04:29 WBC RBC 2.53 L Hgb 7.5 L Hct 22.8 L MCHC RDW 16.8 H Lymph % (Auto) 9.4 L [place] % (Auto) 10.4 H Eos % (Auto) 5.9 H Lymph # [place] # Lymph # (Auto) 0.8 L [place] # (Auto) 0.9 H Eos # (Auto) 0.5 H Seg Neutrophils % 73.5 H Seg Neuts % (Manual) Lymphocytes % (Manual) Seg Neutrophils # Seg Neutrophils # Man Lymphocytes # (Manual) Monocytes % (Manual) Eosinophils % (Manual) Monocytes # (Manual) Eosinophils # (Manual) D-Dimer Heparin Anti-Xa Level ABG pH POC ABG pCO2 POC ABG pO2 ABG pO2 ABG HCO3 ABG O2 Saturation ABG Base Excess ABG Hemoglobin ABG Oxyhemoglobin VBG pH ABG Sodium ABG Potassium ABG Glucose Oxyhemoglobin Sodium 134 L Potassium 5.5 H Chloride Carbon Dioxide BUN 97 H Creatinine 2.2 H Glucose 149 H POC Glucose Lactic Acid Calcium Ferritin AST Alkaline Phosphatase Magnesium 2.60 H Lactate Dehydrogenase Total Creatine Kinase CK-MB (CK-2) C-Reactive Protein Total Protein Albumin Troponin T HDL Cholesterol Arterial Blood Glucose Urine WBC (Auto) Urine Creatinine Urine Total Protein Phenytoin 9.4 L Coronavirus (PCR) Crossmatch 07/24/20 05:11 WBC RBC Hgb Hct MCHC RDW Lymph % (Auto) [place] % (Auto) Eos % (Auto) Lymph # [place] # Lymph # (Auto) [place] # (Auto) Eos # (Auto) Seg Neutrophils % Seg Neuts % (Manual) Lymphocytes % (Manual) Seg Neutrophils # Seg Neutrophils # Man Lymphocytes # (Manual) Monocytes % (Manual) Eosinophils % (Manual) Monocytes # (Manual) Eosinophils # (Manual) D-Dimer Heparin Anti-Xa Level ABG pH POC ABG pCO2 POC ABG pO2 ABG pO2 ABG HCO3 ABG O2 Saturation ABG Base Excess ABG Hemoglobin ABG Oxyhemoglobin VBG pH ABG Sodium ABG Potassium ABG Glucose Oxyhemoglobin Sodium Potassium Chloride Carbon Dioxide BUN Creatinine Glucose POC Glucose 142 H Lactic Acid Calcium Ferritin AST Alkaline Phosphatase Magnesium Lactate Dehydrogenase Total Creatine Kinase CK-MB (CK-2) C-Reactive Protein Total Protein Albumin Troponin T HDL Cholesterol Arterial Blood Glucose Urine WBC (Auto) Urine Creatinine Urine Total Protein Phenytoin Coronavirus (PCR) Crossmatch Chest x-ray: image reviewed (Last CXR 07/18) Allied health notes reviewed: RT
[2020-07-24] MEDS ORDERED: FUROSEMIDE 40 MG/4 ML INJ IV NR (15:49)
[2020-07-24] MEDS: INSULIN GLARGINE 100 UNITS/ML SUB-Q SCH ×2 (20:44→22:07)
[2020-07-25] MEDS: INSULIN LISPRO 100 UNIT/ML VIAL 3 mL SUB-Q SCH ×4 (00:08→18:52)
[2020-07-25] MEDS: cloNIDine 0.2 MG TAB PO SCH ×4 (02:52→18:52)
[2020-07-25 05:17] LABS: Hematocrit 22.3 % (30.3-42.9); Hemoglobin 7.5 gm/dl (10.1-14.3); Mean Corpuscular HGB Conc 34 % (30-34); Mean Corpuscular Volume 89 fl (79-97); Platelet Count 379 K/mm3 (140-440); Red Blood Count 2.51 M/mm3 (3.65-5.03); Red Cell Distribution Width 17.4 % (13.2-15.2)
[2020-07-25 05:24] LABS: Calcium 8.5 mg/dL (8.4-10.2)
[2020-07-25] MEDS: HEPARIN 5,000 UNIT/1 ML VIAL SUB-Q SCH ×4 (07:15→22:08)
[2020-07-25] MEDS: PHENYTOIN IV SCH ×3 (07:16→22:00)
[2020-07-25] MEDS: SODIUM CHLORIDE 0.9% IV SCH ×3 (07:16→22:00)
[2020-07-25] MEDS: hydrALAZINE 100 MG TAB PO SCH ×3 (07:58→19:55)
[2020-07-25] MEDS: GLYCOPYRROLATE 2 MG TAB PO SCH ×3 (07:59→19:55)
--- NOTE | 2020-07-25 08:29 | Progress Note ---
Assessment and Plan Assessment and plan: 64 YO Female with a medical history of HTN, Diastolic CHF, Pulmonary HTN, DM, Obesity Hypoventilation Syndrome presents to ED for evaluation of shortness of breath. As per staff, the EMS was notified for difficulty breathing. Upon arrival to the patient's home the patient was found to be in distress and was subsequently transported to [facility] for further evaluation and care. In route to [facility] the patient developed cardiac arrest and was treated in accordance with ACLS protocol with return of ROSC. Patient was seen and evaluated in the emergency department and was intubated and placed on ventilatory support. Patient admitted to ICU. Critical care team consulted in ED. She was found to have COVID-19 infection and was started on steroids and remdesivir. ID was consulted. Cardiology was consulted for her systolic heart failure and cardiac arrest. Patient completed treatment for COVID-19, then develop superimposed bacterial pneumonia with Klebsiella. She is now extubated, 06/12/2020 but remains confused and requiring high flow O2 and intermittent BiPAP. Patient had another cardiac arrest reintubated 06/26/2020, currently in ICU vent dependent, unable to do trach and PEG due to persistent COVID-19 positive state, as well as anoxic brain injury, unable to get MRI , neurology following. Assessment and plan: 05/28/2020 COVID-19 test positive 06/29/2020 COVID-19 test positive 07/14/2020 COVID-19 test positive --Acute hypoxemic respiratory failure; vent dependent intubated on admission, extubated on 06/12/20 then placed on high flow o2 patient developed another respiratory arrest on 06/26 - reintubated Patient not tolerating weaning parameters CC following, Surgery evaluated the patient for trach and PEG COVID-19 test positive x3, trach and PEG pending neuro evaluation to evaluate severity of anoxic brain injury -- Hypertension; well controlled Increase hydralazine dose to 75 mg 3 times a day Continue amlodipine, coreg, clonidine and hydralazine And minoxidil, closely monitor blood pressures PRN labetalol --s/p cardiopulmonary arrest on admission, 06/26 and 07/01, s/p CPR per ACLS protocol, refer to code sheet --Possible anoxic brain injury, neurology consulted, neuro requested MRI brain, EEG MRI brain could not be done due to body habitus, EEG not done --Seizures seizure precautions; continue Keppra, follow EEG neurology following --Acute renal failure : creatinine 2.4-2.5-2.9-1.7 --Acute renal failure : creatinine 2.4-2.5-2.9-1.7 Vasomotor nephropathy, gentle hydration Avoid nephrotoxins, monitor renal function Reconsult nephrology if needed --Rectal bleeding; resolved --Acute blood loss anemia; total 3 units PRBC transfused Closely monitor H&H, GI following, no plans of endoscopy --Severe sepsis; completed antibiotics per ID persistently positive for COVID-19 and Klebsiella pneumoniae --COVID-19 b/l PNA Completed remdesivir on 06/02 Completed dexamethasone - Last dose 06/07 COVID 19 test positive x 3 during this admission --Superficial left cephalic vein DVT/elevated D-dimers[COVID 19] Patient initially started on heparin drip from 05/29/20 D-dimers improved [id number] treated with Eliquis 5 mg twice a day for 1 week[per ID] stop date 06/26/2020 -- Acute toxic metabolic encephalopathy, POA likely from sepsis and s/p cardiac arrest with possible anoxic injury -- Acute renal failure: likely ATN avoid nephrotoxins, reconsult nephrology if no improvement --Klebsiella pneumonia: ID evaluated completed second round of 5 days of cefepime on 07/04/2020 --Acute on chronic systolic heart failure Cardiology following. Ef 45% -- Coffee ground emesis -Stress ulcers Possible stress ulcers, On PPI H/H again dropped - transfuse GI evaluated --Transaminitis. Etiology likely from COVID-19. cont to monitor --Hyperkalemia; calcium gluconate, Kayexalate, monitor electrolytes --Shock; fluid bolus, Levophed per protocol Patient critically ill poor prognosis -- DVT prophylaxis Eliquis, SCD to bilateral lower extremities while in bed -- Advance care planning Patient is critically ill with multiple medical problems Poor prognosis, family updated and requesting full code The high probability of a clinically significant, sudden or life threatening deterioration of the [CVS, renal, respiratory, DIAMOND POWDER TECHNICIAN] system(s) required my full and direct attention, intervention and personal management. The aggregate critical care time was [35] minutes. This time is in addition to time spent performing reported procedures but includes the following: [x] Data Review and interpretation [x] Patient assessment and monitoring of vital signs [x] Documentation [x] Medication orders and management 07/11/2020. Patient currently on mechanical ventilation AC/PRVC with rate of 12, tidal volume 450, FiO2 30% and PEEP of 6 07/12/2020. Patient placed on CPAP with pressure support of 10 and tolerating well. Continue PSB trials as tolerated. 07/13/2020. Patient currently with AC mode rate 12, tidal volume 450, FiO2 30% and PEEP of 6. Surgery has been consulted for trach and PEG placement. Recall nephrology for renal insufficiency. 07/14/20; surgery evaluated for trach and PEG , pending call with test which is is positive today COVID-19 test positive x3 since admission 07/16; trach and PEG pending neuro evaluation 07/17; vent dependent, trach PEG pending neuro evaluation, pending MRI EEG study[already ordered] 07/18; unable to do MRI, due to body habitus, morbid obesity, radiology consult Patient critically ill very poor prognosis 07/19; remains intubated on vent, clinically no change 07/20; unable to wean, needs trach and PEG, need MRI , unable to do due to body habitus 07/21; clinically no change, remains intubated on ventilatory support 07/22; I recommend family meeting, to discuss the goals of treatment, discussed with case management 07/23; patient's blood pressures in the lower range, will hold antihypertensives, fluid bolus, if no improvement Levophed per protocol 07/24: Patient remains critically ill, unable to obtain MRI at this facility and unstable for transfer, Will reconsult Nephrology as creatinine now worse, with worsening Hypotension and Hyperkalemia- Overnight the patient required pressors Secondary to Hypotension, Will place PICC line. Will give kayxalate, continue to hold all BP meds. Hyponatermia improving. 07/24; patient remains to critically ill, nephrology consult appreciated, creatinine is worsening. Hypotension resolved with. Still patient is hypern atremic Disposition; recommend family conference to decide the goals of treatment, prognosis, CODE STATUS. History Interval history: Patient was seen and evaluated this morning Patient is intubated and on mechanical ventilation Hospitalist Physical - Physical exam Narrative exam: Intubated The patient appeared well nourished and normally developed. Vital signs as documented. Head exam is unremarkable. No scleral icterus . Neck is without jugular venous distension, thyromegaly, or carotid bruits. Lungs are clear to auscultation. Cardiac exam reveals regular rate and Rhythm. Abdominal exam reveals normal bowel sounds, nontender, no organomegaly. Extremities are nonedematous and both femoral and pedal pulses are normal. DIAMOND POWDER TECHNICIAN: Intubated - Constitutional Vitals: Temp Pulse Resp BP Pulse Ox 98.3 F 69 21 154/55 95 07/25/20 07:50 07/25/20 06:30 07/25/20 06:30 07/25/20 06:30 07/25/20 06:30 General appearance: Present: no acute distress, well-nourished, obese (Morbidly obese), other (Intubated on ventilatory support) HEART Score - HEART Score Troponin: Troponin T 0.067 ng/mL (0.00-0.029) H 07/01/20 06:01 Results - Labs CBC & Chem 7: 07/25/20 04:24 07/25/20 04:24 Labs: Laboratory Last Values WBC 7.7 K/mm3 (4.5-11.0) 07/25/20 04:24 RBC 2.51 M/mm3 (3.65-5.03) L 07/25/20 04:24 Hgb 7.5 gm/dl (10.1-14.3) L 07/25/20 04:24 Hct 22.3 % (30.3-42.9) L 07/25/20 04:24 MCV 89 fl (79-97) 07/25/20 04:24 MCH 30 pg (28-32) 07/25/20 04:24 MCHC 34 % (30-34) 07/25/20 04:24 RDW 17.4 % (13.2-15.2) H 07/25/20 04:24 Plt Count 379 K/mm3 (140-440) 07/25/20 04:24 Lymph % (Auto) 9.4 % (13.4-35.0) L 07/24/20 04:29 Wetzel % (Auto) 10.4 % (0.0-7.3) H 07/24/20 04:29 Eos % (Auto) 5.9 % (0.0-4.3) H 07/24/20 04:29 Baso % (Auto) 0.8 % (0.0-1.8) 07/24/20 04:29 Lymph # (Auto) 0.8 K/mm3 (1.2-5.4) L 07/24/20 04:29 Wetzel # (Auto) 0.9 K/mm3 (0.0-0.8) H 07/24/20 04:29 Eos # (Auto) 0.5 K/mm3 (0.0-0.4) H 07/24/20 04:29 Baso # (Auto) 0.1 K/mm3 (0.0-0.1) 07/24/20 04:29 Add Manual Diff Complete 07/13/20 04:53 Total Counted 100 07/13/20 04:53 Seg Neutrophils % 73.5 % (40.0-70.0) H 07/24/20 04:29 Seg Neuts % (Manual) 84.0 % (40.0-70.0) H 07/13/20 04:53 Band Neutrophils % 1.0 % 07/13/20 04:53 Lymphocytes % (Manual) 7.0 % (13.4-35.0) L 07/13/20 04:53 Reactive Lymphs % (Man) 0 % 07/13/20 04:53 Monocytes % (Manual) 5.0 % (0.0-7.3) 07/13/20 04:53 Eosinophils % (Manual) 1.0 % (0.0-4.3) 07/13/20 04:53 Basophils % (Manual) 0 % (0.0-1.8) 07/13/20 04:53 Metamyelocytes % 2.0 % 07/13/20 04:53 Myelocytes % 0 % 07/13/20 04:53 Promyelocytes % 0 % 07/13/20 04:53 Blast Cells % 0 % 07/13/20 04:53 Nucleated RBC % Not Reportable 07/13/20 04:53 Seg Neutrophils # 6.1 K/mm3 (1.8-7.7) 07/24/20 04:29 Seg Neutrophils # Man 7.1 K/mm3 (1.8-7.7) 07/13/20 04:53 Band Neutrophils # 0.1 K/mm3 07/13/20 04:53 Lymphocytes # (Manual) 0.6 K/mm3 (1.2-5.4) L 07/13/20 04:53 Abs React Lymphs (Man) 0.0 K/mm3 07/13/20 04:53 Monocytes # (Manual) 0.4 K/mm3 (0.0-0.8) 07/13/20 04:53 Eosinophils # (Manual) 0.1 K/mm3 (0.0-0.4) 07/13/20 04:53 Basophils # (Manual) 0.0 K/mm3 (0.0-0.1) 07/13/20 04:53 Metamyelocytes # 0.2 K/mm3 07/13/20 04:53 Myelocytes # 0.0 K/mm3 07/13/20 04:53 Promyelocytes # 0.0 K/mm3 07/13/20 04:53 Blast Cells # 0.0 K/mm3 07/13/20 04:53 WBC Morphology Not Reportable 07/13/20 04:53 Hypersegmented Neuts Not Reportable 07/13/20 04:53 Hyposegmented Neuts Not Reportable 07/13/20 04:53 Hypogranular Neuts Not Reportable 07/13/20 04:53 Smudge Cells Not Reportable 07/13/20 04:53 Toxic Granulation Not Reportable 07/13/20 04:53 Toxic Vacuolation Not Reportable 07/13/20 04:53 Dohle Bodies Not Reportable 07/13/20 04:53 Pelger-Huet Anomaly Not Reportable 07/13/20 04:53 Sanjuanita Rods Not Reportable 07/13/20 04:53 Platelet Estimate Consistent w auto 07/13/20 04:53 Clumped Platelets Not Reportable 07/13/20 04:53 Plt Clumps, EDTA Not Reportable 07/13/20 04:53 Large Platelets Not Reportable 07/13/20 04:53 Giant Platelets Not Reportable 07/13/20 04:53 Platelet Satelliting Not Reportable 07/13/20 04:53 Plt Morphology Comment Not Reportable 07/13/20 04:53 RBC Morphology Not Reportable 07/13/20 04:53 Dimorphic RBCs Not Reportable 07/13/20 04:53 Polychromasia Not Reportable 07/13/20 04:53 Hypochromasia Not Reportable 07/13/20 04:53 Poikilocytosis Not Reportable 07/13/20 04:53 Anisocytosis 1+ 07/13/20 04:53 Microcytosis Not Reportable 07/13/20 04:53 Macrocytosis Not Reportable 07/13/20 04:53 Spherocytes Not Reportable 07/13/20 04:53 Pappenheimer Bodies Not Reportable 07/13/20 04:53 Sickle Cells Not Reportable 07/13/20 04:53 Target Cells Not Reportable 07/13/20 04:53 Tear Drop Cells Not Reportable 07/13/20 04:53 Ovalocytes Not Reportable 07/13/20 04:53 Helmet Cells Not Reportable 07/13/20 04:53 Jones-Spiritwood Bodies Not Reportable 07/13/20 04:53 [place] Rings Not Reportable 07/13/20 04:53 Julia Cells Not Reportable 07/13/20 04:53 Bite Cells Not Reportable 07/13/20 04:53 Crenated Cell Not Reportable 07/13/20 04:53 Elliptocytes Not Reportable 07/13/20 04:53 Acanthocytes (Spur) Not Reportable 07/13/20 04:53 Rouleaux Not Reportable 07/13/20 04:53 Hemoglobin C Crystals Not Reportable 07/13/20 04:53 Schistocytes Not Reportable 07/13/20 04:53 Malaria parasites Not Reportable 07/13/20 04:53 Kev Bodies Not Reportable 07/13/20 04:53 Hem Pathologist Commnt No 07/13/20 04:53 PT 14.2 Sec. (12.2-14.9) 05/29/20 15:10 INR 1.08 (0.87-1.13) 05/29/20 15:10 APTT 27.2 Sec. (24.2-36.6) 05/29/20 15:10 D-Dimer 2310.15 ng/mlDDU (0-234) H 06/29/20 14:45 Heparin Anti-Xa Level 0.34 U.I./ml (0.3-0.7) 06/19/20 10:46 ABG pH 7.382 (7.320-7.450) 07/18/20 04:24 POC ABG pCO2 44.1 mmHg (32.0-48.0) 07/18/20 04:24 ABG pCO2 47.0 mm Hg 07/05/20 13:05 ABG Oxyhemoglobin 92.6 (94-98) L 06/23/20 12:34 POC ABG pO2 86.8 mmHg (83-108) 07/18/20 04:24 ABG pO2 78.3 mm Hg (80.0-90.0) L 07/05/20 13:05 POC ABG HCO3 25.6 07/18/20 04:24 ABG HCO3 23.4 mmol/L (20.0-26.0) 07/05/20 13:05 ABG O2 Saturation 96.1 % (95.0-99.0) 07/05/20 13:05 ABG O2 Content 0.3 (0.0-44) 07/05/20 13:05 POC ABG Base Excess 0.4 07/18/20 04:24 ABG Base Excess -2.6 mmol/L (-2.0-3.0) L 07/05/20 13:05 ABG Hemoglobin 8.8 (12.0-17.5) L 07/18/20 04:24 ABG Carboxyhemoglobin 1.7 % (0.0-5.0) 07/05/20 13:05 ABG Methemoglobin 0.2 % (0.0-1.5) 07/05/20 13:05 VBG pH 7.152 (7.320-7.420) L* 05/28/20 13:47 ABG Sodium 131.6 mmol/L (136.0-145.0) L 07/18/20 04:24 ABG Potassium 4.9 mmol/L (3.40-4.50) H 07/18/20 04:24 ABG Chloride 104.0 mmol/L (98-107) 07/18/20 04:24 ABG Glucose 131 mg/dL (65-95) H 07/18/20 04:24 Carboxyhemoglobin 0.5 (0.5-1.5) 06/23/20 12:34 Oxyhemoglobin 97.4 % (95.0-99.0) 07/05/20 13:05 FiO2 30.0 07/18/20 04:24 Sodium 132 mmol/L (137-145) L 07/25/20 04:24 Potassium 4.8 mmol/L (3.6-5.0) 07/25/20 04:24 Chloride 95.1 mmol/L (98-107) L 07/25/20 04:24 Carbon Dioxide 21 mmol/L (22-30) L 07/25/20 04:24 Anion Gap 21 mmol/L 07/25/20 04:24 BUN 95 mg/dL (7-17) H 07/25/20 04:24 Creatinine 2.5 mg/dL (0.6-1.2) H 07/25/20 04:24 Estimated GFR 20 ml/min 07/25/20 04:24 BUN/Creatinine Ratio 38 % 07/25/20 04:24 Glucose 108 mg/dL (65-100) H 07/25/20 04:24 POC Glucose 101 (70-105) 07/25/20 05:24 Lactic Acid 0.60 mmol/L (0.7-2.0) L 06/27/20 05:00 Calcium 8.5 mg/dL (8.4-10.2) 07/25/20 04:24 Ferritin 223.6 ng/mL (10.0-200.0) H 06/29/20 14:45 Magnesium 2.60 mg/dL (1.7-2.3) H 07/24/20 04:29 Lactate Dehydrogenase 367 units/L (91-180) H 06/29/20 14:45 Total Bilirubin 0.20 mg/dL (0.1-1.2) 07/23/20 19:23 AST 35 units/L (5-40) 07/23/20 19:23 ALT 14 units/L (7-56) 07/23/20 19:23 Alkaline Phosphatase 124 units/L (35-129) 07/23/20 19:23 C-Reactive Protein 3.60 mg/dL (0.00-1.30) H 06/29/20 14:45 Total Creatine Kinase 300 units/L (30-135) H 07/01/20 06:01 CK-MB (CK-2) 2.0 ng/mL (0.0-4.0) 07/01/20 06:01 CK-MB (CK-2) Rel Index 0.6 (0-4) 07/01/20 06:01 Troponin T 0.067 ng/mL (0.00-0.029) H 07/01/20 06:01 Total Protein 6.3 g/dL (6.3-8.2) 07/23/20 19: Albumin 2.2 g/dL (3.9-5) L 07/23/20 19: Albumin/Globulin Ratio 0.5 % 07/23/20 19:23 Triglycerides 142 mg/dL (2-149) 07/01/20 06:01 Cholesterol 137 mg/dL (50-199) 07/01/20 06:01 LDL Cholesterol Direct 62 mg/dL (50-130) 07/01/20 06:01 HDL Cholesterol 61 mg/dL (40-59) H 07/01/20 06:01 Cholesterol/HDL Ratio 2.24 % 07/01/20 06:01 Procalcitonin 0.18 ng/mL (<0.15) 07/14/20 04:55 Arterial Blood Glucose 131 mg/dL (65-95) H 07/18/20 04:24 Arterial Blood Ionized Calcium 5.1 mg/dL (4.6-5.3) 07/18/20 04:24 Urine Color Yellow (Yellow) 06/06/20 04:00 Urine Turbidity Cloudy (Clear) 06/06/20 04:00 Urine pH 5.0 (5.0-7.0) 06/06/20 04:00 Ur Specific Wilbur 1.012 (1.003-1.030) 06/06/20 04:00 Urine Protein 100 mg/dl mg/dL (Negative) 06/06/20 04:00 Urine Glucose (UA) 50 mg/dL (Negative) 06/06/20 04:00 Urine Ketones Neg mg/dL (Negative) 06/06/20 04:00 Urine Blood Sm (Negative) 06/06/20 04:00 Urine Nitrite Neg (Negative) 06/06/20 04:00 Urine Bilirubin Neg (Negative) 06/06/20 04:00 Urine Urobilinogen < 2.0 mg/dL (<2.0) 06/06/20 04:00 Ur Leukocyte Esterase Neg (Negative) 06/06/20 04:00 Urine WBC (Auto) 15.0 /HPF (0.0-6.0) H 06/06/20 04:00 Urine RBC (Auto) 23.0 /HPF (0.0-6.0) 06/06/20 04:00 U Epithel Cells (Auto) 8.0 /HPF (0-13.0) 06/06/20 04:00 Urine Bacteria (Auto) 2+ /HPF (Negative) 06/06/20 04:00 Amorphous Crystals 1+ 06/06/20 04:00 Hyaline Casts 16 /LPF 06/06/20 04:00 Urine Mucus 2+ /HPF 06/06/20 04:00 Urine Yeast (Budding) 2+ /HPF 06/03/20 Unknown Urine Creatinine 33.3 mg/dL (0.1-20.0) H 07/06/20 13:20 Urine Sodium 21 mmol/L 07/06/20 13:20 Urine Total Protein 196 mg/dL (5-11.8) H 06/06/20 04:00 Nasal Screen MRSA (PCR) Negative (Negative) 06/29/20 08:30 Phenytoin 9.4 ug/mL (10.0-20.0) L 07/24/20 04:29 Coronavirus (PCR) Positive (Negative) A 07/14/20 08:04 Blood Type A POSITIVE 07/05/20 02:30 Antibody Screen Negative 07/05/20 02:30 Crossmatch See Detail 07/05/20 02:30 - Diagnostic Impressions Diagnostic Impressions: Echocardiogram Limited Views 05/29/20 13:52 Transthoracic Echocardiogram Indication: Pulm Embolus BP: 169/76 HR: 85 Conclusions *Limited study for RV size post cardiopulmonar arrest. *RV is only slightly dilated, no significant difference from prior echo 05/13/2020. *Global left ventricular systolic function is at the lower limits of normal. *The estimated ejection fraction is 45-50%. *Mild to moderate concentric left ventricular hypertrophy is observed. *The left and right atria are both mild to moderately dilated. Findings Left Ventricle: The left ventricular chamber size is mildly dilated. Mild to moderate concentric left ventricular hypertrophy is observed. Global left ventricular systolic function is at the lower limits of normal. The estimated ejection fraction is 45-50%. Left Atrium: The left atrium is mild to moderately dilated. Right Ventricle: The right ventricle is slightly dilated. Right Atrium: The right atrium is mild to moderately dilated. Aortic Valve: The aortic valve leaflets are moderately thickened. Mitral Valve: There is mitral annular calcification. The mitral valve leaflets are moderately thickened. Tricuspid Valve: The tricuspid valve leaflets are mildly thickened. Pericardium: A trivial pericardial effusion is visualized. NDUM: 05/29/20 1808 Amended Report Transthoracic Echocardiogram Indication: Pulm Embolus BP: 169/76 HR: 85 Conclusions *Limited study for RV size post cardiopulmonary arrest. *RV is only slightly dilated, no significant difference from prior echo 05/13/2020. *Global left ventricular systolic function is at the lower limits of normal. *The estimated ejection fraction is 45-50%. *Mild to moderate concentric left ventricular hypertrophy is observed. *The left and right atria are both mild to moderately dilated. Findings Left Ventricle: The left ventricular chamber size is mildly dilated. Mild to moderate concentric left ventricular hypertrophy is observed. Global left ventricular systolic function is at the lower limits of normal. The estimated ejection fraction is 45-50%. Left Atrium: The left atrium is mild to moderately dilated. Right Ventricle: The right ventricle is slightly dilated. Right Atrium: The right atrium is mild to moderately dilated. Aortic Valve: The aortic valve leaflets are moderately thickened. Mitral Valve: There is mitral annular calcification. The mitral valve leaflets are moderately thickened. Tricuspid Valve: The tricuspid valve leaflets are mildly thickened. Pericardium: A trivial pericardial effusion is visualized. Helm/IV: Voiding Method External Female Catheter IV Catheter Type [Left Forearm INT / Saline Lock ] IV Catheter Type [Left Wrist] Peripheral IV IV Catheter Type [Left Upper Peripheral IV arm] IV Catheter Type [Right CVL Internal Jugular] IV Catheter Type [Right Hand] Peripheral IV IV Catheter Type [Right Wrist] Not found on patient IV Catheter Type [Left Hand] INT / Saline Lock IV Catheter Type [Left INT / Saline Lock Antecubital] IV Catheter Type [Right Peripheral IV Forearm] IV Catheter Type [Left Leg] Intra-osseous Active Medications - Current Medications Current Medications: Generic Name Dose Route Start Last Admin Trade Name Freq PRN Reason Stop Dose Admin Acetaminophen 650 mg 06/09/20 10:57 06/29/20 21:18 Tylenol FEEDTUBE 650 mg Q6H PRN Administration Fever >101 Amlodipine Besylate 10 mg 06/02/20 11:00 07/24/20 09:37 Amlodipine PO Not Given DAILY NELSON Lipase/Protease/Amylase 1 each 05/29/20 13:39 07/07/20 10:36 Pancremu Lawson 10,500 Unit FEEDTUBE 1 each PRN PRN Administration For Clogged Feeding Tube Carvedilol 25 mg 07/20/20 11:00 07/24/20 21:08 Coreg PO Not Given Q12HR NELSON Clonidine HCl 0.3 mg 07/20/20 11:00 07/25/20 03:00 Catapres PO Not Given Q8H NELSON Glycopyrrolate 2 mg 06/09/20 14:00 07/25/20 07:59 Glycopyrrolate PO 2 mg TID NELSON Administration Heparin Sodium (Porcine) 5,000 unit 06/30/20 14:00 07/25/20 07:59 Heparin SUB-Q 5,000 unit Q8HR NELSON Administration Hydralazine HCl 100 mg 07/14/20 14:00 07/25/20 07:58 Apresoline PO 100 mg TID NELSON Administration Hydrophilic Ointment 1 applic 05/28/20 13:49 Vaseline Lip Therapy TP Q2HR PRN Dry Lips Phenytoin 150 mg/ Sodium 103 mls @ 408 mls/hr 07/23/20 22:00 07/25/20 07:16 Chloride IV Not Given Q8HR NELSON Sodium Chloride 250 mls @ 5 mls/hr 07/23/20 14:15 07/23/20 14:21 Nacl 0.9% 250ml IV 07/25/20 16:14 5 mls/hr ONCE ONE Administration Norepinephrine 4 mg in 250 mls @ 7.5 mls/hr 07/23/20 20:00 07/24/20 07:15 Levophed Drip 4 Mg/Ns 250 Ml IV 0 mcg/min TITR NELSON 0 mls/hr Titration Protocol 2 MCG/MIN Sodium Chloride 1,000 mls @ 75 mls/hr 07/24/20 09:00 07/24/20 22:01 Nacl 0.9% 1000 Ml IV 75 mls/hr DIRECT NELSON Administration Dopamine HCl/Dextrose 800 mg in 250 mls @ 4.613 mls/hr 07/24/20 11:30 Intropin Drip 800 Mg/D5w 250 Ml IV TITR NELSON Protocol 2 MCG/KG/MIN Insulin Glargine 10 units 06/08/20 22:00 07/24/20 22:07 Lantus SUB-Q Not Given QHS [facility] Insulin Human Lispro 0 unit 05/29/20 18:00 07/25/20 05:24 Humalog SUB-Q Not Given Q6H [facility] Protocol Labetalol HCl 20 mg 06/03/20 09:00 07/21/20 05:56 Labetalol IV 20 mg Q4H PRN Administration HYPERTENSION Lansoprazole 30 mg 06/05/20 22:00 07/24/20 20:56 Prevacid Solutab FEEDTUBE 30 mg BID NELSON Administration Levetiracetam 1,000 mg 07/21/20 22:00 07/24/20 20:47 Keppra PO 1,000 mg BID [facility] Administration Minoxidil 5 mg 07/21/20 10:00 07/24/20 20:50 Loniten PO Not Given BID [facility] Multi-Ingred Cream/Lotion/Oil/Oint 1 applic 05/28/20 13:49 Artificial Tears Ophth Oint OU Q4HR PRN Dry Eye(s) Ondansetron HCl 4 mg 06/02/20 09:00 06/09/20 16:48 Zofran IV 4 mg Q8H PRN Administration Nausea And Vomiting Senna 17.6 mg 06/03/20 10:00 07/24/20 22:10 Senokot FEEDTUBE Not Given BID NELSON Simple Syrup 15 ml 05/29/20 13:39 Simple Syrup FEEDTUBE PRN PRN Hypoglycemia Simple Syrup 30 ml 05/29/20 13:39 Simple Syrup FEEDTUBE PRN PRN Hypoglycemia Sodium Bicarbonate 325 mg 05/29/20 13:39 07/07/20 10:36 Sodium Bicarbonate FEEDTUBE 325 mg PRN PRN Administration For Clogged Feeding Tube Sodium Chloride 10 ml 05/28/20 22:00 07/24/20 22:01 Sodium Chloride Flush Syringe 10 Ml IV 10 ml BID NELSON Administration Sodium Chloride 10 ml 05/28/20 19:08 06/16/20 17:50 Sodium Chloride Flush Syringe 10 Ml IV 10 ml PRN PRN Administration LINE FLUSH Nutrition/Malnutrition Assess - Dietary Evaluation Nutrition/Malnutrition Findings: Nutrition Notes Start: 05/29/20 11:45 Freq: Status: Active Protocol: Document 07/20/20 11:28 MK (Rec: 07/20/20 11:32 [id number]) Nutrition Notes Initial or Follow up Reassessment Current Diagnosis Acute Kidney Injury,Diabetes, Heart Failure,Respiratory Failure Other Pertinent Diagnosis COVID-19 (+), Pulmonary edema, dysphagia Current Diet Nepro at 40 ml/hr Labs/Tests BUN 86 Cr 1.7 Pertinent Medications Reviewed Height 5 ft 6 in Weight 123 kg [place] Body Weight (kg) 59.09 BMI 43.7 Weight Status Morbidly Obese Subjective/Other Information FU for TF tolerance. TF running at goal, pt tolerating . Pt unable to get PEG placed due to COVID test result. Percent of energy/protein needs met: 100%/53% Burn Absent Trauma Absent Current % PO Negligible Minimum of two criteria No physical signs of malnutrition Fluid Accumulation Mild (non-severe) #1 Nutrition Diagnosis Inadequate oral intake Diagnosis Progress(for reassessment Continues documentation) Is patient on ventilator? Yes Is Patient Ambulatory and/or Out of Bed No REE-([facility]-confined to bed) 2172.576 Kcal/Kg value to use for calculation 13 Approximate Energy Requirements Using 1599 kcal/Kg Calculation Used for Recommendations Kcal/kg Additional Notes Protein needs up to 148g (up to 2.5g/kg IBW) Fluid needs 1ml/kcal Nutrition Intervention Change Diet Order: Continue Nutrition Support: Nepro at 40ml/hr Flush 150ml q4h Kcal 1,728 Protein (gm) 78 Fluid (mL) 697 Goal #1 TF tolerance Goal #2 TF to meet at least 65%-70% energy and 80% protein needs Anticipated Discharge Needs: Unable to determine at this time Follow-Up By: 07/27/20 Additional Comments FU for TF tolerance
--- NOTE | 2020-07-25 09:31 | XRay Report ---
CHEST 1 VIEW INDICATION / CLINICAL INFORMATION: respiratory failure, COVID, alveolar edema. COMPARISON: 07/18/2020 FINDINGS: SUPPORT DEVICES: Endotracheal tube, nasogastric tube HEART / MEDIASTINUM: No significant abnormality. LUNGS / PLEURA: Bilateral airspace disease No pneumothorax. ADDITIONAL FINDINGS: No significant additional findings. IMPRESSION: Bilateral airspace disease unchanged from 07/18/2020 Signer Name: Mario Alberto Brower MD [facility] Signed: 07/25/2020 9:26 AM Workstation Name: [id number]
[2020-07-25] MEDS: SENNOSIDES ORAL LIQD 8.8 MG/5 ML ORAL LIQD FEEDTUBE SCH ×2 (09:40→22:32)
[2020-07-25] MEDS: carvediloL 25 MG TAB PO SCH ×2 (10:02→22:46)
[2020-07-25] MEDS: amLODIPine 10 MG TAB PO SCH (10:02)
[2020-07-25] MEDS: levETIRAcetam 500 MG/5 ML ORAL LIQD PO SCH ×2 (10:03→22:06)
[2020-07-25] MEDS: LANSOPRAZOLE 30 MG SOLUTAB FEEDTUBE SCH ×2 (10:03→22:08)
[2020-07-25] MEDS: MINOXIDIL 2.5 MG TAB PO SCH ×2 (10:03→22:46)
--- NOTE | 2020-07-25 11:17 | Progress Note ---
Assessment and Plan - Patient Problems (1) Acute kidney injury (AVANI) with acute tubular necrosis (ATN) Current Visit: Yes Status: Acute Plan to address problem: With prolonged hospitalization course and worsening renal injury in the setting of worsening hemodynamics over the last 24 hours that required re-intitiation fo pressor support. Pressors have been weaned off this am. Added on gentle IVF hydration. Would recommend that franco catheter be placed for close monitoring of I/O as there had been concern for possible urinary retention. Will place order at this time. (2) Hyperkalemia Current Visit: Yes Status: Acute Plan to address problem: in the setting of acute kidney injury. Medical management of hyperkalemia. Anticipate with increased distal sodium delivery with IVF, potassium secretion should enhance. Serum potassium levels improved this am. (3) Acute hypoxemic respiratory failure Current Visit: Yes Status: Acute Plan to address problem: management per pulmonary team. Remains intubated at this time. (4) Pneumonia due to COVID-19 virus Current Visit: Yes Status: Acute Plan to address problem: management per ID recommendations. Completed course of remdesivir and steroids. Remains on positive on repeat testing and remains in isolation protocol. Subjective Date of service: 07/25/20 Principal diagnosis: Ac hypoxemic resp failure; COVID-19; pneumonia; CHF; Pulm HTN; OHS; DM II Interval history: Re-consulted for worsening renal function and decreased urine output. Remains COVID-19(+). Remains intubated. Renal function noted. Ordered for one dose of lasix 40 mg IV yesterday. Charted that she had ~ 400 cc UOP along with 3BM with likely UOP each time. Have discussed with staff, and we may need to place franco to better monitor her I/O. Objective - Exam Narrative Exam: patient was not directly examined secondary to preservation of PPE - Vital Signs Vital signs: Vital Signs - 12hr 07/24/20 07/24/20 07/24/20 23:29 23:31 23:39 Temperature 97.9 F Pulse Rate 63 65 Pulse Rate [ From Monitor] Respiratory 16 20 Rate Blood Pressure 132/51 132/51 O2 Sat by Pulse 94 95 Oximetry 07/25/20 07/25/20 07/25/20 00:00 00:18 00:30 Temperature Pulse Rate 65 67 Pulse Rate [ 75 From Monitor] Respiratory 21 17 Rate Blood Pressure 135/52 141/57 O2 Sat by Pulse 96 97 96 Oximetry 07/25/20 07/25/20 07/25/20 00:31 00:40 01:01 Temperature Pulse Rate 66 66 67 Pulse Rate [ From Monitor] Respiratory 20 21 Rate Blood Pressure 135/52 147/56 O2 Sat by Pulse 94 93 Oximetry 07/25/20 07/25/20 07/25/20 01:31 02:00 02:20 Temperature Pulse Rate 67 67 66 Pulse Rate [ 75 From Monitor] Respiratory 21 21 17 Rate Blood Pressure 147/56 157/65 O2 Sat by Pulse 94 94 96 Oximetry 07/25/20 07/25/20 07/25/20 02:31 02:52 03:00 Temperature Pulse Rate 67 67 68 Pulse Rate [ From Monitor] Respiratory 20 21 Rate Blood Pressure 157/65 157/65 146/49 O2 Sat by Pulse 94 94 Oximetry 07/25/20 07/25/20 07/25/20 03:31 03:43 04:00 Temperature 98.4 F Pulse Rate 68 68 Pulse Rate [ From Monitor] Respiratory 18 24 Rate Blood Pressure 146/49 146/49 O2 Sat by Pulse 94 93 Oximetry 07/25/20 07/25/20 07/25/20 04:18 04:30 05:00 Temperature Pulse Rate 59 L 68 69 Pulse Rate [ From Monitor] Respiratory 20 20 Rate Blood Pressure 142/5 144/55 144/55 O2 Sat by Pulse 98 94 95 Oximetry 07/25/20 07/25/20 07/25/20 05:21 05:30 06:00 Temperature Pulse Rate 69 69 70 Pulse Rate [ 75 From Monitor] Respiratory 17 21 24 Rate Blood Pressure 183/56 154/55 O2 Sat by Pulse 96 95 95 Oximetry 07/25/20 07/25/20 07/25/20 06:30 07:00 07:30 Temperature Pulse Rate 69 68 70 Pulse Rate [ From Monitor] Respiratory 21 20 21 Rate Blood Pressure 154/55 178/61 178/61 O2 Sat by Pulse 95 95 95 Oximetry 07/25/20 07/25/20 07/25/20 07:50 08:00 08:30 Temperature 98.3 F Pulse Rate 70 70 Pulse Rate [ 71 From Monitor] Respiratory 20 21 Rate Blood Pressure 178/61 167/53 O2 Sat by Pulse 95 95 Oximetry 07/25/20 07/25/20 07/25/20 08:58 09:00 09:30 Temperature Pulse Rate 72 74 74 Pulse Rate [ From Monitor] Respiratory 29 H 33 H Rate Blood Pressure 167/53 181/50 181/50 O2 Sat by Pulse 95 92 92 Oximetry 07/25/20 07/25/20 07/25/20 10:00 10:02 10:30 Temperature Pulse Rate 73 74 71 Pulse Rate [ From Monitor] Respiratory 32 H 23 Rate Blood Pressure 167/66 167/66 167/66 O2 Sat by Pulse 91 95 Oximetry 07/25/20 11:00 Temperature Pulse Rate 68 Pulse Rate [ From Monitor] Respiratory 18 Rate Blood Pressure 167/48 O2 Sat by Pulse 96 Oximetry - Lab 07/25/20 04:24 07/25/20 04:24 Most recent lab results ABG pH 7.382 (7.320-7.450) 07/18/20 04:24 ABG pCO2 47.0 mm Hg 07/05/20 13:05 ABG pO2 78.3 mm Hg (80.0-90.0) L 07/05/20 13:05 ABG HCO3 23.4 mmol/L (20.0-26.0) 07/05/20 13:05 ABG O2 Saturation 96.1 % (95.0-99.0) 07/05/20 13:05 Calcium 8.5 mg/dL (8.4-10.2) 07/25/20 04:24 Magnesium 2.60 mg/dL (1.7-2.3) H 07/24/20 04:29 Urine Creatinine 33.3 mg/dL (0.1-20.0) H 07/06/20 13:20 Urine Sodium 21 mmol/L 07/06/20 13:20 Urine Total Protein 196 mg/dL (5-11.8) H 06/06/20 04:00 Medications & Allergies - Medications Allergies/Adverse Reactions: Allergies No Known Allergies Allergy (Verified 01/21/20 12:28) Home Medications: Home Medications Medication Instructions Recorded Confirmed Last Taken Type AtorvaSTATin [Lipitor] 20 mg PO QHS 05/12/20 05/29/20 Unknown History lisinopriL [Zestril TAB] 40 mg PO QDAY 05/12/20 05/29/20 Unknown History metFORMIN [Glucophage] 850 mg PO BID 05/12/20 05/29/20 Unknown History Acetaminophen [Acetaminophen TAB] 650 mg PO Q4H PRN tablet 05/13/20 05/29/20 Unknown Rx Dicyclomine [Bentyl] 20 mg PO BID #20 tablet 05/13/20 05/29/20 Unknown Rx Famotidine [Pepcid] 20 mg PO BID #30 tablet 05/13/20 05/29/20 Unknown Rx carvediloL [Coreg] 6.25 mg PO BID #60 05/13/20 05/29/20 Unknown Rx Active Medications: Generic Name Dose Route Start Last Admin Trade Name Freq PRN Reason Stop Dose Admin Acetaminophen 650 mg 06/09/20 10:57 06/29/20 21:18 Tylenol FEEDTUBE 650 mg Q6H PRN Administration Fever >101 Amlodipine Besylate 10 mg 06/02/20 11:00 07/25/20 10:02 Amlodipine PO 10 mg DAILY NELSON Administration Lipase/Protease/Amylase 1 each 05/29/20 13:39 07/07/20 10:36 Pancreaze 10,500 Unit FEEDTUBE 1 each PRN PRN Administration For Clogged Feeding Tube Carvedilol 25 mg 07/20/20 11:00 07/25/20 10:02 Coreg PO 25 mg Q12HR NELSON Administration Clonidine HCl 0.3 mg 07/20/20 11:00 07/25/20 11:02 Catapres PO Not Given Q8H NELSON Glycopyrrolate 2 mg 06/09/20 14:00 07/25/20 07:59 Glycopyrrolate PO 2 mg TID NELSON Administration Heparin Sodium (Porcine) 5,000 unit 06/30/20 14:00 07/25/20 07:59 Heparin SUB-Q 5,000 unit Q8HR NELSON Administration Hydralazine HCl 100 mg 07/14/20 14:00 07/25/20 07:58 Apresoline PO 100 mg TID NELSON Administration Hydrophilic Ointment 1 applic 05/28/20 13:49 Vaseline Lip Therapy TP Q2HR PRN Dry Lips Phenytoin 150 mg/ Sodium 103 mls @ 408 mls/hr 07/23/20 22:00 07/25/20 07:16 Chloride IV Not Given Q8HR NELSON Sodium Chloride 250 mls @ 5 mls/hr 07/23/20 14:15 07/23/20 14:21 Nacl 0.9% 250ml IV 07/25/20 16:14 5 mls/hr ONCE ONE Administration Norepinephrine 4 mg in 250 mls @ 7.5 mls/hr 07/23/20 20:00 07/24/20 07:15 Levophed Drip 4 Mg/Ns 250 Ml IV 0 mcg/min TITR NELSON 0 mls/hr Titration Protocol 2 MCG/MIN Sodium Chloride 1,000 mls @ 75 mls/hr 07/24/20 09:00 07/24/20 22:01 Nacl 0.9% 1000 Ml IV 75 mls/hr DIRECT NELSON Administration Dopamine HCl/Dextrose 800 mg in 250 mls @ 4.613 mls/hr 07/24/20 11:30 Intropin Drip 800 Mg/D5w 250 Ml IV TITR NELSON Protocol 2 MCG/KG/MIN Insulin Glargine 10 units 06/08/20 22:00 07/24/20 22:07 Lantus SUB-Q Not Given QHS NELSON Insulin Human Lispro 0 unit 05/29/20 18:00 07/25/20 05:24 Humalog SUB-Q Not Given Q6H [facility] Protocol Labetalol HCl 20 mg 06/03/20 09:00 07/21/20 05:56 Labetalol IV 20 mg Q4H PRN Administration HYPERTENSION Lansoprazole 30 mg 06/05/20 22:00 07/25/20 10:03 Prevacid Solutab FEEDTUBE 30 mg BID NELSON Administration Levetiracetam 1,000 mg 07/21/20 22:00 07/25/20 10:03 Keppra PO 1,000 mg BID NELSON Administration Minoxidil 5 mg 07/21/20 10:00 07/25/20 10:03 Loniten PO 5 mg BID NELSON Administration Multi-Ingred Cream/Lotion/Oil/Oint 1 applic 05/28/20 13:49 Artificial Tears Ophth Oint OU Q4HR PRN Dry Eye(s) Ondansetron HCl 4 mg 06/02/20 09:00 06/09/20 16:48 Zofran IV 4 mg Q8H PRN Administration Nausea And Vomiting Senna 17.6 mg 06/03/20 10:00 07/25/20 09:40 Senokot FEEDTUBE Not Given BID NELSON Simple Syrup 15 ml 05/29/20 13:39 Simple Syrup FEEDTUBE PRN PRN Hypoglycemia Simple Syrup 30 ml 05/29/20 13:39 Simple Syrup FEEDTUBE PRN PRN Hypoglycemia Sodium Bicarbonate 325 mg 05/29/20 13:39 07/07/20 10:36 Sodium Bicarbonate FEEDTUBE 325 mg PRN PRN Administration For Clogged Feeding Tube Sodium Chloride 10 ml 05/28/20 22:00 07/25/20 10:03 Sodium Chloride Flush Syringe 10 Ml IV 10 ml BID NELSON Administration Sodium Chloride 10 ml 05/28/20 19:08 06/16/20 17:50 Sodium Chloride Flush Syringe 10 Ml IV 10 ml PRN PRN Administration LINE FLUSH
[2020-07-25] MEDS: FUROSEMIDE 40 MG/4 ML INJ IV SCH (12:09)
[2020-07-25] MEDS ORDERED: MINERAL OIL/PETROLATUM, WHITE OPHTH OINT 3.5 GM OU PRN (14:47)
[2020-07-25] MEDS ORDERED: LIP THERAPY VASELINE TP PRN (14:47)
--- NOTE | 2020-07-25 15:01 | Progress Note ---
Assessment and Plan Acute hypoxemic respiratory failure on MVS Coronavirus-19 infection. Bilateral pulmonary infiltrates, bilateral pneumonia plus likely element of Pulmonary edema. Bilateral pulmonary edema. Bilateral pleural effusions. History of congestive heart failure. Morbid obesity. History of pulmonary hypertension. History of hypertension. Diabetes. Obesity hypoventilation syndrome. Elevated serum inflammatory markers to include D-dimers and LDH levels. Hyperkalemia at presentation. Metabolic acidosis. Oropharyngeal dysphagia. (AMS remains rate limiting factor to safe extubation; she will need a tracheo stomy) - repeat EEG showed persistent epileptiform activity - AED's adjusted per neurology (added Phosphenytoin) - surgery evaluation ongoing for trach +/- PEG (await negative COVID PCR result) - continue azotemia management per nephrology rec's - continue care as below otherwise; - GI evaluation ongoing - continue Modafinil re: lethargy / somnolence - continue daytime PSV trials as tolerated - Daily SAT and SBT assessment as tolerated - continue to wean supplemental oxygen for target O2 sat's > 90% acutely - VAP bundle addressed - continue lung protective strategies - continue bronchodilators with pulmonary hygiene per RT - wean per pulmonary driven protocols otherwise - continue accuchecks resumed with glycemic control per SSI (While critically ill target blood glucose of 140-180 mg/dL; avoid hypoglycemia) - sedation prn for target RASS 0 to -1 - continue to avoid benzodiazepine's, reduce the possibility of delirium - AB's per ID rec's (following clinically of AB's at this time) - continue enteral nutrition at goal rate as tolerated - AED's per neurology - prn analgesia per CPOT score - Maintenance of sleep-wake cycle, avoid delirium - continue enteral nutritional support at goal rate as tolerated - G.I. & VTE prophylaxis with heparin & famotidine - PT/OT/ROM exercises - continue mobility protocols for pressure ulcer prophylaxis - Monitor hemodynamics closely - continue other care per attending / other consultants - discharge planning ongoing concurrently (LTAC evaluation is appropriate) .... Re-evaluate in am & prn CONDITION: CRITICAL PROGNOSIS: GUARDED CODE STATUS: FULL CODE The high probability of a clinically significant, sudden or life-threatening deterioration of the [respiratory, cardiovascular, GI & neurologic] system(s) required my full and direct attention, intervention and personal management. The aggregate critical care time was [31] minutes without overlap. Time includes spent on; [x] Data Review and interpretation [x] Patient assessment and monitoring of vital signs [x] Documentation [x] Medication orders and management Subjective Date of service: 07/25/20 Principal diagnosis: Ac hypoxemic resp failure; COVID-19; pneumonia; CHF; Pulm HTN; OHS; DM II Interval history: Patient is seen today for: Ac hypoxemic resp failure; Coronavirus-19 infection; pneumonia; Pulmonary edema; Bilateral pleural effusions; CHF; Morbid obesity; pulmonary hypertension; OHS; DM II Seen and examined at bedside; 24hour events reviewed; nursing and respiratory care staff consulted; no adverse overnight events reported to me; resting peacefully in bed; remains on MVS; AMS is persistent; no clinical seizures Objective Vital Signs - 12hr 07/25/20 07/25/20 07/25/20 03:31 03:43 04:00 Temperature 98.4 F Pulse Rate 68 68 Pulse Rate [ From Monitor] Respiratory 18 24 Rate Blood Pressure 146/49 146/49 O2 Sat by Pulse 94 93 Oximetry 07/25/20 07/25/20 07/25/20 04:18 04:30 05:00 Temperature Pulse Rate 59 L 68 69 Pulse Rate [ From Monitor] Respiratory 20 20 Rate Blood Pressure 142/5 144/55 144/55 O2 Sat by Pulse 98 94 95 Oximetry 07/25/20 07/25/20 07/25/20 05:21 05:30 06:00 Temperature Pulse Rate 69 69 70 Pulse Rate [ 75 From Monitor] Respiratory 17 21 24 Rate Blood Pressure 183/56 154/55 O2 Sat by Pulse 96 95 95 Oximetry 07/25/20 07/25/20 07/25/20 06:30 07:00 07:30 Temperature Pulse Rate 69 68 70 Pulse Rate [ From Monitor] Respiratory 21 20 21 Rate Blood Pressure 154/55 178/61 178/61 O2 Sat by Pulse 95 95 95 Oximetry 07/25/20 07/25/20 07/25/20 07:50 08:00 08:30 Temperature 98.3 F Pulse Rate 70 70 Pulse Rate [ 71 From Monitor] Respiratory 20 21 Rate Blood Pressure 178/61 167/53 O2 Sat by Pulse 95 95 Oximetry 07/25/20 07/25/20 07/25/20 08:58 09:00 09:30 Temperature Pulse Rate 72 74 74 Pulse Rate [ From Monitor] Respiratory 29 H 33 H Rate Blood Pressure 167/53 181/50 181/50 O2 Sat by Pulse 95 92 92 Oximetry 07/25/20 07/25/20 07/25/20 10:00 10:02 10:30 Temperature Pulse Rate 73 74 71 Pulse Rate [ From Monitor] Respiratory 32 H 23 Rate Blood Pressure 167/66 167/66 167/66 O2 Sat by Pulse 91 95 Oximetry 07/25/20 07/25/20 07/25/20 11:00 11:30 12:00 Temperature 98.4 F Pulse Rate 68 67 68 Pulse Rate [ 68 From Monitor] Respiratory 18 22 28 H Rate Blood Pressure 167/48 167/48 162/42 O2 Sat by Pulse 96 95 97 Oximetry 07/25/20 07/25/20 07/25/20 12:30 12:40 13:00 Temperature Pulse Rate 66 64 64 Pulse Rate [ From Monitor] Respiratory 19 14 Rate Blood Pressure 162/42 162/42 136/44 O2 Sat by Pulse 96 96 96 Oximetry Constitutional: no acute distress, other (elderly looking female with mildly increased resp effort at rest) Eyes: non-icteric ENT: oropharynx dry, other (ETT 23-24 cm AYAN) Neck: supple, no lymphadenopathy, no JVD, other (large neck circumference) Effort: mildly labored Ascultation: Bilateral: diminished breath sounds, rhonchi (scant) Percussion: Bilateral: not dull Cardiovascular: regular rate and rhythm, other (S1,S2) Gastrointestinal: normoactive bowel sounds, soft, non-tender, non-distended Integumentary: normal Extremities: no cyanosis, pink and warm, pulses normal, no ischemia or petechiae, edema (trace) Neurologic: pupils equal and round, unable to assess, other (lethargic to obtunded) Psychiatric: other (unable to assess re: AMS) CBC and BMP: 07/25/20 04:24 07/26/20 04:22 ABG, PT/INR, D-dimer: ABG ABG pH 7.382 (7.320-7.450) 07/18/20 04:24 POC ABG pCO2 44.1 mmHg (32.0-48.0) 07/18/20 04:24 ABG pCO2 47.0 mm Hg 07/05/20 13:05 POC ABG pO2 86.8 mmHg (83-108) 07/18/20 04:24 ABG pO2 78.3 mm Hg (80.0-90.0) L 07/05/20 13:05 POC ABG HCO3 25.6 07/18/20 04:24 ABG O2 Saturation 96.1 % (95.0-99.0) 07/05/20 13:05 PT/INR, D-dimer PT 14.2 Sec. (12.2-14.9) 05/29/20 15:10 INR 1.08 (0.87-1.13) 05/29/20 15:10 D-Dimer 2310.15 ng/mlDDU (0-234) H 06/29/20 14:45 Abnormal lab findings: Abnormal Labs 05/28/20 05/28/20 05/28/20 13:29 13:47 13:47 WBC RBC Hgb Hct MCHC RDW 15.3 H Lymph % (Auto) [place] % (Auto) Eos % (Auto) Lymph # [place] # Lymph # (Auto) [place] # (Auto) Eos # (Auto) Seg Neutrophils % Seg Neuts % (Manual) Lymphocytes % (Manual) Seg Neutrophils # Seg Neutrophils # Man Lymphocytes # (Manual) Monocytes % (Manual) Eosinophils % (Manual) Monocytes # (Manual) Eosinophils # (Manual) D-Dimer Heparin Anti-Xa Level ABG pH POC ABG pCO2 POC ABG pO2 ABG pO2 ABG HCO3 ABG O2 Saturation ABG Base Excess ABG Hemoglobin ABG Oxyhemoglobin VBG pH ABG Sodium ABG Potassium ABG Glucose Oxyhemoglobin Sodium Potassium 6.6 H* Chloride 109.2 H Carbon Dioxide 17 L BUN 29 H Creatinine 1.3 H Glucose 265 H POC Glucose 248 H Lactic Acid Calcium 8.1 L Ferritin AST 63 H Alkaline Phosphatase Magnesium Lactate Dehydrogenase Total Creatine Kinase 301 H CK-MB (CK-2) 4.3 H C-Reactive Protein Total Protein 5.4 L Albumin 2.6 L Troponin T HDL Cholesterol Arterial Blood Glucose Urine WBC (Auto) Urine Creatinine Urine Total Protein Phenytoin Coronavirus (PCR) Crossmatch 05/28/20 05/28/20 05/28/20 13:47 13:47 14:46 WBC RBC Hgb Hct MCHC RDW Lymph % (Auto) [place] % (Auto) Eos % (Auto) Lymph # [place] # Lymph # (Auto) [place] # (Auto) Eos # (Auto) Seg Neutrophils % Seg Neuts % (Manual) Lymphocytes % (Manual) Seg Neutrophils # Seg Neutrophils # Man Lymphocytes # (Manual) Monocytes % (Manual) Eosinophils % (Manual) Monocytes # (Manual) Eosinophils # (Manual) D-Dimer Heparin Anti-Xa Level ABG pH POC ABG pCO2 POC ABG pO2 ABG pO2 ABG HCO3 ABG O2 Saturation ABG Base Excess ABG Hemoglobin ABG Oxyhemoglobin VBG pH 7.152 L* ABG Sodium ABG Potassium ABG Glucose Oxyhemoglobin Sodium Potassium 7.2 H* Chloride Carbon Dioxide BUN Creatinine Glucose POC Glucose Lactic Acid 3.40 H* Calcium Ferritin AST Alkaline Phosphatase Magnesium Lactate Dehydrogenase Total Creatine Kinase CK-MB (CK-2) C-Reactive Protein Total Protein Albumin Troponin T HDL Cholesterol Arterial Blood Glucose Urine WBC (Auto) Urine Creatinine Urine Total Protein Phenytoin Coronavirus (PCR) Crossmatch 05/28/20 05/28/20 05/28/20 15:33 15:33 15:51 WBC RBC Hgb Hct MCHC RDW Lymph % (Auto) [place] % (Auto) Eos % (Auto) Lymph # [place] # Lymph # (Auto) [place] # (Auto) Eos # (Auto) Seg Neutrophils % Seg Neuts % (Manual) Lymphocytes % (Manual) Seg Neutrophils # Seg Neutrophils # Man Lymphocytes # (Manual) Monocytes % (Manual) Eosinophils % (Manual) Monocytes # (Manual) Eosinophils # (Manual) D-Dimer 8780.43 H Heparin Anti-Xa Level ABG pH 7.284 L POC ABG pCO2 POC ABG pO2 ABG pO2 273.0 H ABG HCO3 ABG O2 Saturation 99.4 H ABG Base Excess -6.1 L ABG Hemoglobin 17.2 H ABG Oxyhemoglobin VBG pH ABG Sodium ABG Potassium ABG Glucose Oxyhemoglobin Sodium Potassium Chloride Carbon Dioxide BUN Creatinine Glucose 152 H POC Glucose Lactic Acid Calcium Ferritin AST Alkaline Phosphatase Magnesium Lactate Dehydrogenase 365 H Total Creatine Kinase CK-MB (CK-2) C-Reactive Protein Total Protein Albumin Troponin T HDL Cholesterol Arterial Blood Glucose Urine WBC (Auto) Urine Creatinine Urine Total Protein Phenytoin Coronavirus (PCR) Crossmatch 05/28/20 05/28/20 05/28/20 16:30 20:41 23:20 WBC RBC Hgb Hct MCHC RDW Lymph % (Auto) [place] % (Auto) Eos % (Auto) Lymph # [place] # Lymph # (Auto) [place] # (Auto) Eos # (Auto) Seg Neutrophils % Seg Neuts % (Manual) Lymphocytes % (Manual) Seg Neutrophils # Seg Neutrophils # Man Lymphocytes # (Manual) Monocytes % (Manual) Eosinophils % (Manual) Monocytes # (Manual) Eosinophils # (Manual) D-Dimer Heparin Anti-Xa Level ABG pH POC ABG pCO2 POC ABG pO2 ABG pO2 ABG HCO3 ABG O2 Saturation ABG Base Excess ABG Hemoglobin ABG Oxyhemoglobin VBG pH ABG Sodium ABG Potassium ABG Glucose Oxyhemoglobin Sodium Potassium Chloride Carbon Dioxide BUN Creatinine Glucose POC Glucose 225 H 224 H Lactic Acid Calcium Ferritin AST Alkaline Phosphatase Magnesium Lactate Dehydrogenase Total Creatine Kinase CK-MB (CK-2) C-Reactive Protein Total Protein Albumin Troponin T HDL Cholesterol Arterial Blood Glucose Urine WBC (Auto) 17.0 H Urine Creatinine Urine Total Protein Phenytoin Coronavirus (PCR) Crossmatch 05/28/20 05/29/20 05/29/20 Unknown 04:35 04:43 WBC RBC 3.48 L Hgb 9.8 L Hct 29.4 L MCHC RDW 16.0 H Lymph % (Auto) 7.4 L [place] % (Auto) Eos % (Auto) Lymph # 0.7 L [place] # Lymph # (Auto) [place] # (Auto) Eos # (Auto) Seg Neutrophils % 89.1 H Seg Neuts % (Manual) Lymphocytes % (Manual) Seg Neutrophils # 8.1 H Seg Neutrophils # Man Lymphocytes # (Manual) Monocytes % (Manual) Eosinophils % (Manual) Monocytes # (Manual) Eosinophils # (Manual) D-Dimer Heparin Anti-Xa Level ABG pH POC ABG pCO2 POC ABG pO2 ABG pO2 ABG HCO3 19.3 L ABG O2 Saturation ABG Base Excess -4.5 L ABG Hemoglobin 9.7 L ABG Oxyhemoglobin VBG pH ABG Sodium ABG Potassium ABG Glucose Oxyhemoglobin Sodium Potassium Chloride Carbon Dioxide BUN Creatinine Glucose POC Glucose Lactic Acid Calcium Ferritin AST Alkaline Phosphatase Magnesium Lactate Dehydrogenase Total Creatine Kinase CK-MB (CK-2) C-Reactive Protein Total Protein Albumin Troponin T HDL Cholesterol Arterial Blood Glucose Urine WBC (Auto) Urine Creatinine Urine Total Protein Phenytoin Coronavirus (PCR) Positive A Crossmatch 05/29/20 05/29/20 05/29/20 04:43 15:10 17:17 WBC RBC Hgb 9.3 L Hct 28.7 L MCHC RDW Lymph % (Auto) [place] % (Auto) Eos % (Auto) Lymph # [place] # Lymph # (Auto) [place] # (Auto) Eos # (Auto) Seg Neutrophils % Seg Neuts % (Manual) Lymphocytes % (Manual) Seg Neutrophils # Seg Neutrophils # Man Lymphocytes # (Manual) Monocytes % (Manual) Eosinophils % (Manual) Monocytes # (Manual) Eosinophils # (Manual) D-Dimer Heparin Anti-Xa Level ABG pH POC ABG pCO2 POC ABG pO2 ABG pO2 ABG HCO3 ABG O2 Saturation ABG Base Excess ABG Hemoglobin ABG Oxyhemoglobin VBG pH ABG Sodium ABG Potassium ABG Glucose Oxyhemoglobin Sodium Potassium Chloride 110.2 H Carbon Dioxide 18 L BUN 32 H Creatinine 1.4 H Glucose 180 H POC Glucose 147 H Lactic Acid Calcium Ferritin AST Alkaline Phosphatase Magnesium Lactate Dehydrogenase Total Creatine Kinase CK-MB (CK-2) C-Reactive Protein Total Protein Albumin Troponin T HDL Cholesterol Arterial Blood Glucose Urine WBC (Auto) Urine Creatinine Urine Total Protein Phenytoin Coronavirus (PCR) Crossmatch 05/30/20 05/30/20 05/30/20 00:08 00:12 04:15 WBC RBC Hgb Hct MCHC RDW Lymph % (Auto) [place] % (Auto) Eos % (Auto) Lymph # [place] # Lymph # (Auto) [place] # (Auto) Eos # (Auto) Seg Neutrophils % Seg Neuts % (Manual) Lymphocytes % (Manual) Seg Neutrophils # Seg Neutrophils # Man Lymphocytes # (Manual) Monocytes % (Manual) Eosinophils % (Manual) Monocytes # (Manual) Eosinophils # (Manual) D-Dimer Heparin Anti-Xa Level 0.71 H ABG pH 7.460 H POC ABG pCO2 POC ABG pO2 ABG pO2 106.0 H ABG HCO3 18.9 L ABG O2 Saturation ABG Base Excess -4.4 L ABG Hemoglobin 6.8 L ABG Oxyhemoglobin VBG pH ABG Sodium ABG Potassium ABG Glucose Oxyhemoglobin Sodium Potassium Chloride Carbon Dioxide BUN Creatinine Glucose POC Glucose 195 H Lactic Acid Calcium Ferritin AST Alkaline Phosphatase Magnesium Lactate Dehydrogenase Total Creatine Kinase CK-MB (CK-2) C-Reactive Protein Total Protein Albumin Troponin T HDL Cholesterol Arterial Blood Glucose Urine WBC (Auto) Urine Creatinine Urine Total Protein Phenytoin Coronavirus (PCR) Crossmatch 08/05/30/20 05/30/20 06:07 08:37 12:33 WBC RBC Hgb Hct MCHC RDW Lymph % (Auto) [place] % (Auto) Eos % (Auto) Lymph # [place] # Lymph # (Auto) [place] # (Auto) Eos # (Auto) Seg Neutrophils % Seg Neuts % (Manual) Lymphocytes % (Manual) Seg Neutrophils # Seg Neutrophils # Man Lymphocytes # (Manual) Monocytes % (Manual) Eosinophils % (Manual) Monocytes # (Manual) Eosinophils # (Manual) D-Dimer Heparin Anti-Xa Level 0.85 H ABG pH POC ABG pCO2 POC ABG pO2 ABG pO2 ABG HCO3 ABG O2 Saturation ABG Base Excess ABG Hemoglobin ABG Oxyhemoglobin VBG pH ABG Sodium ABG Potassium ABG Glucose Oxyhemoglobin Sodium Potassium Chloride Carbon Dioxide BUN Creatinine Glucose POC Glucose 182 H 187 H Lactic Acid Calcium Ferritin AST Alkaline Phosphatase Magnesium Lactate Dehydrogenase Total Creatine Kinase CK-MB (CK-2) C-Reactive Protein Total Protein Albumin Troponin T HDL Cholesterol Arterial Blood Glucose Urine WBC (Auto) Urine Creatinine Urine Total Protein Phenytoin Coronavirus (PCR) Crossmatch 05/30/20 05/30/20 05/30/20 15:58 17:57 23:36 WBC RBC Hgb Hct MCHC RDW Lymph % (Auto) [place] % (Auto) Eos % (Auto) Lymph # [place] # Lymph # (Auto) [place] # (Auto) Eos # (Auto) Seg Neutrophils % Seg Neuts % (Manual) Lymphocytes % (Manual) Seg Neutrophils # Seg Neutrophils # Man Lymphocytes # (Manual) Monocytes % (Manual) Eosinophils % (Manual) Monocytes # (Manual) Eosinophils # (Manual) D-Dimer Heparin Anti-Xa Level 1.03 H ABG pH POC ABG pCO2 POC ABG pO2 ABG pO2 ABG HCO3 ABG O2 Saturation ABG Base Excess ABG Hemoglobin ABG Oxyhemoglobin VBG pH ABG Sodium ABG Potassium ABG Glucose Oxyhemoglobin Sodium Potassium Chloride Carbon Dioxide BUN Creatinine Glucose POC Glucose 208 H 185 H Lactic Acid Calcium Ferritin AST Alkaline Phosphatase Magnesium Lactate Dehydrogenase Total Creatine Kinase CK-MB (CK-2) C-Reactive Protein Total Protein Albumin Troponin T HDL Cholesterol Arterial Blood Glucose Urine WBC (Auto) Urine Creatinine Urine Total Protein Phenytoin Coronavirus (PCR) Crossmatch 05/31/20 05/31/20 05/31/20 02:16 03:55 06:16 WBC RBC Hgb 9.2 L Hct 27.5 L MCHC RDW Lymph % (Auto) [place] % (Auto) Eos % (Auto) Lymph # [place] # Lymph # (Auto) [place] # (Auto) Eos # (Auto) Seg Neutrophils % Seg Neuts % (Manual) Lymphocytes % (Manual) Seg Neutrophils # Seg Neutrophils # Man Lymphocytes # (Manual) Monocytes % (Manual) Eosinophils % (Manual) Monocytes # (Manual) Eosinophils # (Manual) D-Dimer Heparin Anti-Xa Level ABG pH POC ABG pCO2 POC ABG pO2 ABG pO2 94.7 H ABG HCO3 18.6 L ABG O2 Saturation ABG Base Excess -5.5 L ABG Hemoglobin 7.9 L ABG Oxyhemoglobin VBG pH ABG Sodium ABG Potassium ABG Glucose Oxyhemoglobin Sodium Potassium Chloride Carbon Dioxide BUN Creatinine Glucose POC Glucose 160 H Lactic Acid Calcium Ferritin AST Alkaline Phosphatase Magnesium Lactate Dehydrogenase Total Creatine Kinase CK-MB (CK-2) C-Reactive Protein Total Protein Albumin Troponin T HDL Cholesterol Arterial Blood Glucose Urine WBC (Auto) Urine Creatinine Urine Total Protein Phenytoin Coronavirus (PCR) Crossmatch 05/31/20 05/31/20 05/31/20 12:20 13:03 18:13 WBC RBC Hgb Hct MCHC RDW Lymph % (Auto) [place] % (Auto) Eos % (Auto) Lymph # [place] # Lymph # (Auto) [place] # (Auto) Eos # (Auto) Seg Neutrophils % Seg Neuts % (Manual) Lymphocytes % (Manual) Seg Neutrophils # Seg Neutrophils # Man Lymphocytes # (Manual) Monocytes % (Manual) Eosinophils % (Manual) Monocytes # (Manual) Eosinophils # (Manual) D-Dimer Heparin Anti-Xa Level ABG pH POC ABG pCO2 POC ABG pO2 ABG pO2 ABG HCO3 ABG O2 Saturation ABG Base Excess ABG Hemoglobin ABG Oxyhemoglobin VBG pH ABG Sodium ABG Potassium ABG Glucose Oxyhemoglobin Sodium Potassium Chloride Carbon Dioxide 18 L BUN 48 H Creatinine 1.6 H Glucose 115 H POC Glucose 128 H 159 H Lactic Acid Calcium 8.3 L Ferritin AST Alkaline Phosphatase Magnesium Lactate Dehydrogenase Total Creatine Kinase CK-MB (CK-2) C-Reactive Protein Total Protein 5.4 L Albumin 2.4 L Troponin T HDL Cholesterol Arterial Blood Glucose Urine WBC (Auto) Urine Creatinine Urine Total Protein Phenytoin Coronavirus (PCR) Crossmatch 05/31/20 06/01/20 06/01/20 23:51 04:00 05:48 WBC RBC Hgb Hct MCHC RDW Lymph % (Auto) [place] % (Auto) Eos % (Auto) Lymph # [place] # Lymph # (Auto) [place] # (Auto) Eos # (Auto) Seg Neutrophils % Seg Neuts % (Manual) Lymphocytes % (Manual) Seg Neutrophils # Seg Neutrophils # Man Lymphocytes # (Manual) Monocytes % (Manual) Eosinophils % (Manual) Monocytes # (Manual) Eosinophils # (Manual) D-Dimer Heparin Anti-Xa Level ABG pH POC ABG pCO2 POC ABG pO2 ABG pO2 109.8 H ABG HCO3 18.8 L ABG O2 Saturation ABG Base Excess -5.9 L ABG Hemoglobin 7.8 L ABG Oxyhemoglobin VBG pH ABG Sodium ABG Potassium ABG Glucose Oxyhemoglobin Sodium Potassium Chloride Carbon Dioxide BUN Creatinine Glucose POC Glucose 171 H 133 H Lactic Acid Calcium Ferritin AST Alkaline Phosphatase Magnesium Lactate Dehydrogenase Total Creatine Kinase CK-MB (CK-2) C-Reactive Protein Total Protein Albumin Troponin T HDL Cholesterol Arterial Blood Glucose Urine WBC (Auto) Urine Creatinine Urine Total Protein Phenytoin Coronavirus (PCR) Crossmatch 06/01/20 06/01/20 06/02/20 12:28 17:29 00:08 WBC RBC Hgb Hct MCHC RDW Lymph % (Auto) [place] % (Auto) Eos % (Auto) Lymph # [place] # Lymph # (Auto) [place] # (Auto) Eos # (Auto) Seg Neutrophils % Seg Neuts % (Manual) Lymphocytes % (Manual) Seg Neutrophils # Seg Neutrophils # Man Lymphocytes # (Manual) Monocytes % (Manual) Eosinophils % (Manual) Monocytes # (Manual) Eosinophils # (Manual) D-Dimer Heparin Anti-Xa Level ABG pH POC ABG pCO2 POC ABG pO2 ABG pO2 ABG HCO3 ABG O2 Saturation ABG Base Excess ABG Hemoglobin ABG Oxyhemoglobin VBG pH ABG Sodium ABG Potassium ABG Glucose Oxyhemoglobin Sodium Potassium Chloride Carbon Dioxide BUN Creatinine Glucose POC Glucose 199 H 209 H 162 H Lactic Acid Calcium Ferritin AST Alkaline Phosphatase Magnesium Lactate Dehydrogenase Total Creatine Kinase CK-MB (CK-2) C-Reactive Protein Total Protein Albumin Troponin T HDL Cholesterol Arterial Blood Glucose Urine WBC (Auto) Urine Creatinine Urine Total Protein Phenytoin Coronavirus (PCR) Crossmatch 06/02/20 06/02/20 06/02/20 04:20 04:20 04:44 WBC RBC Hgb 10.0 L Hct MCHC RDW Lymph % (Auto) [place] % (Auto) Eos % (Auto) Lymph # [place] # Lymph # (Auto) [place] # (Auto) Eos # (Auto) Seg Neutrophils % Seg Neuts % (Manual) Lymphocytes % (Manual) Seg Neutrophils # Seg Neutrophils # Man Lymphocytes # (Manual) Monocytes % (Manual) Eosinophils % (Manual) Monocytes # (Manual) Eosinophils # (Manual) D-Dimer Heparin Anti-Xa Level 0.10 L ABG pH POC ABG pCO2 POC ABG pO2 ABG pO2 150.6 H ABG HCO3 ABG O2 Saturation ABG Base Excess -4.1 L ABG Hemoglobin 11.8 L ABG Oxyhemoglobin VBG pH ABG Sodium ABG Potassium ABG Glucose Oxyhemoglobin Sodium Potassium Chloride Carbon Dioxide BUN Creatinine Glucose POC Glucose Lactic Acid Calcium Ferritin AST Alkaline Phosphatase Magnesium Lactate Dehydrogenase Total Creatine Kinase CK-MB (CK-2) C-Reactive Protein Total Protein Albumin Troponin T HDL Cholesterol Arterial Blood Glucose Urine WBC (Auto) Urine Creatinine Urine Total Protein Phenytoin Coronavirus (PCR) Crossmatch 06/02/20 06/02/20 06/02/20 05:53 12:04 13:49 WBC RBC Hgb Hct MCHC RDW Lymph % (Auto) [place] % (Auto) Eos % (Auto) Lymph # [place] # Lymph # (Auto) [place] # (Auto) Eos # (Auto) Seg Neutrophils % Seg Neuts % (Manual) Lymphocytes % (Manual) Seg Neutrophils # Seg Neutrophils # Man Lymphocytes # (Manual) Monocytes % (Manual) Eosinophils % (Manual) Monocytes # (Manual) Eosinophils # (Manual) D-Dimer Heparin Anti-Xa Level 0.28 L ABG pH POC ABG pCO2 POC ABG pO2 ABG pO2 ABG HCO3 ABG O2 Saturation ABG Base Excess ABG Hemoglobin ABG Oxyhemoglobin VBG pH ABG Sodium ABG Potassium ABG Glucose Oxyhemoglobin Sodium Potassium Chloride Carbon Dioxide BUN Creatinine Glucose POC Glucose 149 H 220 H Lactic Acid Calcium Ferritin AST Alkaline Phosphatase Magnesium Lactate Dehydrogenase Total Creatine Kinase CK-MB (CK-2) C-Reactive Protein Total Protein Albumin Troponin T HDL Cholesterol Arterial Blood Glucose Urine WBC (Auto) Urine Creatinine Urine Total Protein Phenytoin Coronavirus (PCR) Crossmatch 06/02/20 06/02/20 06/03/20 13:49 18:31 00:42 WBC RBC Hgb Hct MCHC RDW Lymph % (Auto) [place] % (Auto) Eos % (Auto) Lymph # [place] # Lymph # (Auto) [place] # (Auto) Eos # (Auto) Seg Neutrophils % Seg Neuts % (Manual) Lymphocytes % (Manual) Seg Neutrophils # Seg Neutrophils # Man Lymphocytes # (Manual) Monocytes % (Manual) Eosinophils % (Manual) Monocytes # (Manual) Eosinophils # (Manual) D-Dimer 769.68 H Heparin Anti-Xa Level ABG pH POC ABG pCO2 POC ABG pO2 ABG pO2 ABG HCO3 ABG O2 Saturation ABG Base Excess ABG Hemoglobin ABG Oxyhemoglobin VBG pH ABG Sodium ABG Potassium ABG Glucose Oxyhemoglobin Sodium Potassium Chloride Carbon Dioxide BUN Creatinine Glucose POC Glucose 225 H 212 H Lactic Acid Calcium Ferritin AST Alkaline Phosphatase Magnesium Lactate Dehydrogenase Total Creatine Kinase CK-MB (CK-2) C-Reactive Protein Total Protein Albumin Troponin T HDL Cholesterol Arterial Blood Glucose Urine WBC (Auto) Urine Creatinine Urine Total Protein Phenytoin Coronavirus (PCR) Crossmatch 06/03/20 06/03/20 06/03/20 05:16 05:16 05:25 WBC 11.4 H RBC Hgb Hct MCHC RDW 16.4 H Lymph % (Auto) [place] % (Auto) Eos % (Auto) Lymph # [place] # Lymph # (Auto) [place] # (Auto) Eos # (Auto) Seg Neutrophils % Seg Neuts % (Manual) Lymphocytes % (Manual) Seg Neutrophils # Seg Neutrophils # Man Lymphocytes # (Manual) Monocytes % (Manual) Eosinophils % (Manual) Monocytes # (Manual) Eosinophils # (Manual) D-Dimer Heparin Anti-Xa Level ABG pH POC ABG pCO2 POC ABG pO2 ABG pO2 160.9 H ABG HCO3 19.4 L ABG O2 Saturation ABG Base Excess -4.9 L ABG Hemoglobin 7.0 L ABG Oxyhemoglobin VBG pH ABG Sodium ABG Potassium ABG Glucose Oxyhemoglobin Sodium Potassium Chloride Carbon Dioxide 18 L BUN 65 H Creatinine 2.0 H Glucose 175 H POC Glucose Lactic Acid Calcium 8.0 L Ferritin AST Alkaline Phosphatase Magnesium Lactate Dehydrogenase Total Creatine Kinase CK-MB (CK-2) C-Reactive Protein Total Protein 5.5 L Albumin 2.2 L Troponin T HDL Cholesterol Arterial Blood Glucose Urine WBC (Auto) Urine Creatinine Urine Total Protein Phenytoin Coronavirus (PCR) Crossmatch 06/03/20 06/03/20 06/03/20 06:07 11:58 18:24 WBC RBC Hgb Hct MCHC RDW Lymph % (Auto) [place] % (Auto) Eos % (Auto) Lymph # [place] # Lymph # (Auto) [place] # (Auto) Eos # (Auto) Seg Neutrophils % Seg Neuts % (Manual) Lymphocytes % (Manual) Seg Neutrophils # Seg Neutrophils # Man Lymphocytes # (Manual) Monocytes % (Manual) Eosinophils % (Manual) Monocytes # (Manual) Eosinophils # (Manual) D-Dimer Heparin Anti-Xa Level ABG pH POC ABG pCO2 POC ABG pO2 ABG pO2 ABG HCO3 ABG O2 Saturation ABG Base Excess ABG Hemoglobin ABG Oxyhemoglobin VBG pH ABG Sodium ABG Potassium ABG Glucose Oxyhemoglobin Sodium Potassium Chloride Carbon Dioxide BUN Creatinine Glucose POC Glucose 177 H 163 H 211 H Lactic Acid Calcium Ferritin AST Alkaline Phosphatase Magnesium Lactate Dehydrogenase Total Creatine Kinase CK-MB (CK-2) C-Reactive Protein Total Protein Albumin Troponin T HDL Cholesterol Arterial Blood Glucose Urine WBC (Auto) Urine Creatinine Urine Total Protein Phenytoin Coronavirus (PCR) Crossmatch 06/03/20 06/03/20 06/04/20 21:50 Unknown 00:26 WBC RBC Hgb Hct MCHC RDW Lymph % (Auto) [place] % (Auto) Eos % (Auto) Lymph # [place] # Lymph # (Auto) [place] # (Auto) Eos # (Auto) Seg Neutrophils % Seg Neuts % (Manual) Lymphocytes % (Manual) Seg Neutrophils # Seg Neutrophils # Man Lymphocytes # (Manual) Monocytes % (Manual) Eosinophils % (Manual) Monocytes # (Manual) Eosinophils # (Manual) D-Dimer Heparin Anti-Xa Level ABG pH POC ABG pCO2 POC ABG pO2 ABG pO2 ABG HCO3 ABG O2 Saturation ABG Base Excess ABG Hemoglobin ABG Oxyhemoglobin VBG pH ABG Sodium ABG Potassium ABG Glucose Oxyhemoglobin Sodium 135 L Potassium Chloride Carbon Dioxide 18 L BUN Creatinine Glucose POC Glucose 241 H Lactic Acid Calcium Ferritin AST Alkaline Phosphatase Magnesium Lactate Dehydrogenase Total Creatine Kinase CK-MB (CK-2) C-Reactive Protein Total Protein Albumin Troponin T HDL Cholesterol Arterial Blood Glucose Urine WBC (Auto) 11.0 H Urine Creatinine Urine Total Protein Phenytoin Coronavirus (PCR) Crossmatch 06/04/20 06/04/20 06/04/20 03:35 04:19 04:19 WBC RBC 3.15 L Hgb 8.9 L Hct 26.8 L D MCHC RDW 15.9 H Lymph % (Auto) 6.0 L [place] % (Auto) Eos % (Auto) Lymph # 0.6 L [place] # Lymph # (Auto) [place] # (Auto) Eos # (Auto) Seg Neutrophils % 86.6 H Seg Neuts % (Manual) Lymphocytes % (Manual) Seg Neutrophils # 9.1 H Seg Neutrophils # Man Lymphocytes # (Manual) Monocytes % (Manual) Eosinophils % (Manual) Monocytes # (Manual) Eosinophils # (Manual) D-Dimer Heparin Anti-Xa Level ABG pH 7.331 L POC ABG pCO2 POC ABG pO2 ABG pO2 ABG HCO3 ABG O2 Saturation ABG Base Excess -4.7 L ABG Hemoglobin 11.0 L ABG Oxyhemoglobin VBG pH ABG Sodium ABG Potassium ABG Glucose Oxyhemoglobin 93.9 L Sodium 136 L Potassium Chloride Carbon Dioxide 20 L BUN 73 H Creatinine 2.0 H Glucose 192 H POC Glucose Lactic Acid Calcium 8.0 L Ferritin AST Alkaline Phosphatase Magnesium Lactate Dehydrogenase 271 H Total Creatine Kinase CK-MB (CK-2) C-Reactive Protein 2.20 H Total Protein 5.0 L Albumin 2.0 L Troponin T HDL Cholesterol Arterial Blood Glucose Urine WBC (Auto) Urine Creatinine Urine Total Protein Phenytoin Coronavirus (PCR) Crossmatch 06/04/20 06/04/20 06/04/20 04:19 05:51 11:48 WBC RBC Hgb Hct MCHC RDW Lymph % (Auto) [place] % (Auto) Eos % (Auto) Lymph # [place] # Lymph # (Auto) [place] # (Auto) Eos # (Auto) Seg Neutrophils % Seg Neuts % (Manual) Lymphocytes % (Manual) Seg Neutrophils # Seg Neutrophils # Man Lymphocytes # (Manual) Monocytes % (Manual) Eosinophils % (Manual) Monocytes # (Manual) Eosinophils # (Manual) D-Dimer 414.52 H Heparin Anti-Xa Level ABG pH POC ABG pCO2 POC ABG pO2 ABG pO2 ABG HCO3 ABG O2 Saturation ABG Base Excess ABG Hemoglobin ABG Oxyhemoglobin VBG pH ABG Sodium ABG Potassium ABG Glucose Oxyhemoglobin Sodium Potassium Chloride Carbon Dioxide BUN Creatinine Glucose POC Glucose 179 H 213 H Lactic Acid Calcium Ferritin AST Alkaline Phosphatase Magnesium Lactate Dehydrogenase Total Creatine Kinase CK-MB (CK-2) C-Reactive Protein Total Protein Albumin Troponin T HDL Cholesterol Arterial Blood Glucose Urine WBC (Auto) Urine Creatinine Urine Total Protein Phenytoin Coronavirus (PCR) Crossmatch 06/04/20 06/05/20 06/05/20 18:25 00:16 05:00 WBC RBC Hgb Hct MCHC RDW Lymph % (Auto) [place] % (Auto) Eos % (Auto) Lymph # [place] # Lymph # (Auto) [place] # (Auto) Eos # (Auto) Seg Neutrophils % Seg Neuts % (Manual) Lymphocytes % (Manual) Seg Neutrophils # Seg Neutrophils # Man Lymphocytes # (Manual) Monocytes % (Manual) Eosinophils % (Manual) Monocytes # (Manual) Eosinophils # (Manual) D-Dimer Heparin Anti-Xa Level ABG pH 7.286 L POC ABG pCO2 POC ABG pO2 ABG pO2 96.2 H ABG HCO3 ABG O2 Saturation ABG Base Excess -6.3 L ABG Hemoglobin 8.8 L ABG Oxyhemoglobin VBG pH ABG Sodium ABG Potassium ABG Glucose Oxyhemoglobin 94.8 L Sodium Potassium Chloride Carbon Dioxide BUN Creatinine Glucose POC Glucose 238 H 183 H Lactic Acid Calcium Ferritin AST Alkaline Phosphatase Magnesium Lactate Dehydrogenase Total Creatine Kinase CK-MB (CK-2) C-Reactive Protein Total Protein Albumin Troponin T HDL Cholesterol Arterial Blood Glucose Urine WBC (Auto) Urine Creatinine Urine Total Protein Phenytoin Coronavirus (PCR) Crossmatch 06/05/20 06/05/20 06/05/20 05:39 07:25 07:25 WBC RBC 2.97 L Hgb 8.7 L Hct 25.7 L MCHC RDW 16.0 H Lymph % (Auto) 8.8 L [place] % (Auto) 13.3 H Eos % (Auto) Lymph # 0.8 L [place] # 1.3 H Lymph # (Auto) [place] # (Auto) Eos # (Auto) Seg Neutrophils % 77.3 H Seg Neuts % (Manual) Lymphocytes % (Manual) Seg Neutrophils # Seg Neutrophils # Man Lymphocytes # (Manual) Monocytes % (Manual) Eosinophils % (Manual) Monocytes # (Manual) Eosinophils # (Manual) D-Dimer Heparin Anti-Xa Level ABG pH POC ABG pCO2 POC ABG pO2 ABG pO2 ABG HCO3 ABG O2 Saturation ABG Base Excess ABG Hemoglobin ABG Oxyhemoglobin VBG pH ABG Sodium ABG Potassium ABG Glucose Oxyhemoglobin Sodium 133 L Potassium Chloride Carbon Dioxide 17 L BUN 89 H Creatinine 2.8 H Glucose 176 H POC Glucose 149 H Lactic Acid Calcium 7.7 L Ferritin AST Alkaline Phosphatase Magnesium Lactate Dehydrogenase Total Creatine Kinase CK-MB (CK-2) C-Reactive Protein Total Protein 4.2 L Albumin 1.9 L Troponin T HDL Cholesterol Arterial Blood Glucose Urine WBC (Auto) Urine Creatinine Urine Total Protein Phenytoin Coronavirus (PCR) Crossmatch 06/05/20 06/05/20 06/05/20 07:25 12:05 15:41 WBC RBC Hgb Hct MCHC RDW Lymph % (Auto) [place] % (Auto) Eos % (Auto) Lymph # [place] # Lymph # (Auto) [place] # (Auto) Eos # (Auto) Seg Neutrophils % Seg Neuts % (Manual) Lymphocytes % (Manual) Seg Neutrophils # Seg Neutrophils # Man Lymphocytes # (Manual) Monocytes % (Manual) Eosinophils % (Manual) Monocytes # (Manual) Eosinophils # (Manual) D-Dimer Heparin Anti-Xa Level 0.76 H 0.81 H ABG pH POC ABG pCO2 POC ABG pO2 ABG pO2 ABG HCO3 ABG O2 Saturation ABG Base Excess ABG Hemoglobin ABG Oxyhemoglobin VBG pH ABG Sodium ABG Potassium ABG Glucose Oxyhemoglobin Sodium Potassium Chloride Carbon Dioxide BUN Creatinine Glucose POC Glucose 198 H Lactic Acid Calcium Ferritin AST Alkaline Phosphatase Magnesium Lactate Dehydrogenase Total Creatine Kinase CK-MB (CK-2) C-Reactive Protein Total Protein Albumin Troponin T HDL Cholesterol Arterial Blood Glucose Urine WBC (Auto) Urine Creatinine Urine Total Protein Phenytoin Coronavirus (PCR) Crossmatch 06/05/20 06/05/20 06/06/20 18:08 23:25 04:00 WBC RBC Hgb Hct MCHC RDW Lymph % (Auto) [place] % (Auto) Eos % (Auto) Lymph # [place] # Lymph # (Auto) [place] # (Auto) Eos # (Auto) Seg Neutrophils % Seg Neuts % (Manual) Lymphocytes % (Manual) Seg Neutrophils # Seg Neutrophils # Man Lymphocytes # (Manual) Monocytes % (Manual) Eosinophils % (Manual) Monocytes # (Manual) Eosinophils # (Manual) D-Dimer Heparin Anti-Xa Level ABG pH POC ABG pCO2 POC ABG pO2 ABG pO2 ABG HCO3 ABG O2 Saturation ABG Base Excess ABG Hemoglobin ABG Oxyhemoglobin VBG pH ABG Sodium ABG Potassium ABG Glucose Oxyhemoglobin Sodium Potassium Chloride Carbon Dioxide BUN Creatinine Glucose POC Glucose 223 H 169 H Lactic Acid Calcium Ferritin AST Alkaline Phosphatase Magnesium Lactate Dehydrogenase Total Creatine Kinase CK-MB (CK-2) C-Reactive Protein Total Protein Albumin Troponin T HDL Cholesterol Arterial Blood Glucose Urine WBC (Auto) 15.0 H Urine Creatinine Urine Total Protein Phenytoin Coronavirus (PCR) Crossmatch 06/06/20 06/06/20 06/06/20 04:00 05:33 05:38 WBC RBC 2.97 L Hgb 8.7 L Hct 26.8 L MCHC RDW 16.8 H Lymph % (Auto) [place] % (Auto) Eos % (Auto) Lymph # [place] # Lymph # (Auto) [place] # (Auto) Eos # (Auto) Seg Neutrophils % Seg Neuts % (Manual) Lymphocytes % (Manual) Seg Neutrophils # Seg Neutrophils # Man Lymphocytes # (Manual) Monocytes % (Manual) Eosinophils % (Manual) Monocytes # (Manual) Eosinophils # (Manual) D-Dimer Heparin Anti-Xa Level ABG pH POC ABG pCO2 POC ABG pO2 ABG pO2 ABG HCO3 ABG O2 Saturation ABG Base Excess ABG Hemoglobin ABG Oxyhemoglobin VBG pH ABG Sodium ABG Potassium ABG Glucose Oxyhemoglobin Sodium Potassium Chloride Carbon Dioxide BUN Creatinine Glucose POC Glucose 186 H Lactic Acid Calcium Ferritin AST Alkaline Phosphatase Magnesium Lactate Dehydrogenase Total Creatine Kinase CK-MB (CK-2) C-Reactive Protein Total Protein Albumin Troponin T HDL Cholesterol Arterial Blood Glucose Urine WBC (Auto) Urine Creatinine 82.2 H Urine Total Protein 196 H Phenytoin Coronavirus (PCR) Crossmatch 06/06/20 06/06/20 06/06/20 05:38 12:25 17:03 WBC RBC Hgb Hct MCHC RDW Lymph % (Auto) [place] % (Auto) Eos % (Auto) Lymph # [place] # Lymph # (Auto) [place] # (Auto) Eos # (Auto) Seg Neutrophils % Seg Neuts % (Manual) Lymphocytes % (Manual) Seg Neutrophils # Seg Neutrophils # Man Lymphocytes # (Manual) Monocytes % (Manual) Eosinophils % (Manual) Monocytes # (Manual) Eosinophils # (Manual) D-Dimer Heparin Anti-Xa Level ABG pH POC ABG pCO2 POC ABG pO2 ABG pO2 ABG HCO3 ABG O2 Saturation ABG Base Excess ABG Hemoglobin ABG Oxyhemoglobin VBG pH ABG Sodium ABG Potassium ABG Glucose Oxyhemoglobin Sodium 134 L Potassium 5.2 H Chloride Carbon Dioxide 18 L BUN 97 H Creatinine 2.5 H Glucose 193 H POC Glucose 239 H 252 H Lactic Acid Calcium 7.5 L Ferritin AST Alkaline Phosphatase Magnesium Lactate Dehydrogenase Total Creatine Kinase CK-MB (CK-2) C-Reactive Protein Total Protein 4.1 L Albumin 1.9 L Troponin T HDL Cholesterol Arterial Blood Glucose Urine WBC (Auto) Urine Creatinine Urine Total Protein Phenytoin Coronavirus (PCR) Crossmatch 06/07/20 06/07/20 06/07/20 00:16 01:49 04:00 WBC RBC 2.91 L Hgb 8.4 L Hct 25.0 L MCHC RDW 16.1 H Lymph % (Auto) 5.7 L [place] % (Auto) 10.5 H Eos % (Auto) Lymph # 0.6 L [place] # 1.1 H Lymph # (Auto) [place] # (Auto) Eos # (Auto) Seg Neutrophils % 83.6 H Seg Neuts % (Manual) Lymphocytes % (Manual) Seg Neutrophils # 9.1 H Seg Neutrophils # Man Lymphocytes # (Manual) Monocytes % (Manual) Eosinophils % (Manual) Monocytes # (Manual) Eosinophils # (Manual) D-Dimer Heparin Anti-Xa Level 0.26 L ABG pH POC ABG pCO2 POC ABG pO2 ABG pO2 ABG HCO3 ABG O2 Saturation ABG Base Excess ABG Hemoglobin ABG Oxyhemoglobin VBG pH ABG Sodium ABG Potassium ABG Glucose Oxyhemoglobin Sodium Potassium Chloride Carbon Dioxide BUN Creatinine Glucose POC Glucose 173 H Lactic Acid Calcium Ferritin AST Alkaline Phosphatase Magnesium Lactate Dehydrogenase Total Creatine Kinase CK-MB (CK-2) C-Reactive Protein Total Protein Albumin Troponin T HDL Cholesterol Arterial Blood Glucose Urine WBC (Auto) Urine Creatinine Urine Total Protein Phenytoin Coronavirus (PCR) Crossmatch 06/07/20 06/07/20 06/07/20 04:00 04:54 05:51 WBC RBC Hgb Hct MCHC RDW Lymph % (Auto) [place] % (Auto) Eos % (Auto) Lymph # [place] # Lymph # (Auto) [place] # (Auto) Eos # (Auto) Seg Neutrophils % Seg Neuts % (Manual) Lymphocytes % (Manual) Seg Neutrophils # Seg Neutrophils # Man Lymphocytes # (Manual) Monocytes % (Manual) Eosinophils % (Manual) Monocytes # (Manual) Eosinophils # (Manual) D-Dimer Heparin Anti-Xa Level ABG pH 7.317 L POC ABG pCO2 POC ABG pO2 ABG pO2 71.4 L ABG HCO3 ABG O2 Saturation 94.3 L ABG Base Excess -4.8 L ABG Hemoglobin 7.1 L ABG Oxyhemoglobin VBG pH ABG Sodium ABG Potassium ABG Glucose Oxyhemoglobin 92.2 L Sodium 133 L Potassium Chloride Carbon Dioxide 18 L BUN 100 H Creatinine 2.5 H Glucose 158 H POC Glucose 168 H Lactic Acid Calcium 7.6 L Ferritin AST Alkaline Phosphatase Magnesium Lactate Dehydrogenase Total Creatine Kinase CK-MB (CK-2) C-Reactive Protein Total Protein 4.7 L Albumin 2.0 L Troponin T HDL Cholesterol Arterial Blood Glucose Urine WBC (Auto) Urine Creatinine Urine Total Protein Phenytoin Coronavirus (PCR) Crossmatch 06/07/20 06/07/20 06/07/20 12:03 17:17 20:10 WBC RBC Hgb Hct MCHC RDW Lymph % (Auto) [place] % (Auto) Eos % (Auto) Lymph # [place] # Lymph # (Auto) [place] # (Auto) Eos # (Auto) Seg Neutrophils % Seg Neuts % (Manual) Lymphocytes % (Manual) Seg Neutrophils # Seg Neutrophils # Man Lymphocytes # (Manual) Monocytes % (Manual) Eosinophils % (Manual) Monocytes # (Manual) Eosinophils # (Manual) D-Dimer Heparin Anti-Xa Level 0.17 L ABG pH POC ABG pCO2 POC ABG pO2 ABG pO2 ABG HCO3 ABG O2 Saturation ABG Base Excess ABG Hemoglobin ABG Oxyhemoglobin VBG pH ABG Sodium ABG Potassium ABG Glucose Oxyhemoglobin Sodium Potassium Chloride Carbon Dioxide BUN Creatinine Glucose POC Glucose 276 H 281 H Lactic Acid Calcium Ferritin AST Alkaline Phosphatase Magnesium Lactate Dehydrogenase Total Creatine Kinase CK-MB (CK-2) C-Reactive Protein Total Protein Albumin Troponin T HDL Cholesterol Arterial Blood Glucose Urine WBC (Auto) Urine Creatinine Urine Total Protein Phenytoin Coronavirus (PCR) Crossmatch 06/08/20 06/08/20 06/08/20 00:02 04:47 04:47 WBC 16.4 H RBC 3.07 L Hgb 8.6 L Hct 26.5 L MCHC RDW 16.3 H Lymph % (Auto) [place] % (Auto) Eos % (Auto) Lymph # [place] # Lymph # (Auto) [place] # (Auto) Eos # (Auto) Seg Neutrophils % Seg Neuts % (Manual) 90.0 H Lymphocytes % (Manual) 3.0 L Seg Neutrophils # Seg Neutrophils # Man 14.8 H Lymphocytes # (Manual) 0.5 L Monocytes % (Manual) Eosinophils % (Manual) Monocytes # (Manual) 1.1 H Eosinophils # (Manual) D-Dimer Heparin Anti-Xa Level ABG pH POC ABG pCO2 POC ABG pO2 ABG pO2 ABG HCO3 ABG O2 Saturation ABG Base Excess ABG Hemoglobin ABG Oxyhemoglobin VBG pH ABG Sodium ABG Potassium ABG Glucose Oxyhemoglobin Sodium 129 L Potassium Chloride 95.6 L Carbon Dioxide 17 L BUN 106 H Creatinine 2.5 H Glucose 213 H POC Glucose 242 H Lactic Acid Calcium 7.6 L Ferritin AST Alkaline Phosphatase Magnesium Lactate Dehydrogenase Total Creatine Kinase CK-MB (CK-2) C-Reactive Protein Total Protein 5.0 L Albumin 2.1 L Troponin T HDL Cholesterol Arterial Blood Glucose Urine WBC (Auto) Urine Creatinine Urine Total Protein Phenytoin Coronavirus (PCR) Crossmatch 06/08/20 06/08/20 06/08/20 05:40 11:55 17:54 WBC RBC Hgb Hct MCHC RDW Lymph % (Auto) [place] % (Auto) Eos % (Auto) Lymph # [place] # Lymph # (Auto) [place] # (Auto) Eos # (Auto) Seg Neutrophils % Seg Neuts % (Manual) Lymphocytes % (Manual) Seg Neutrophils # Seg Neutrophils # Man Lymphocytes # (Manual) Monocytes % (Manual) Eosinophils % (Manual) Monocytes # (Manual) Eosinophils # (Manual) D-Dimer Heparin Anti-Xa Level ABG pH POC ABG pCO2 POC ABG pO2 ABG pO2 ABG HCO3 ABG O2 Saturation ABG Base Excess ABG Hemoglobin ABG Oxyhemoglobin VBG pH ABG Sodium ABG Potassium ABG Glucose Oxyhemoglobin Sodium Potassium Chloride Carbon Dioxide BUN Creatinine Glucose POC Glucose 221 H 218 H 163 H Lactic Acid Calcium Ferritin AST Alkaline Phosphatase Magnesium Lactate Dehydrogenase Total Creatine Kinase CK-MB (CK-2) C-Reactive Protein Total Protein Albumin Troponin T HDL Cholesterol Arterial Blood Glucose Urine WBC (Auto) Urine Creatinine Urine Total Protein Phenytoin Coronavirus (PCR) Crossmatch 08/06/09/20 06/09/20 22:01 00:09 05:16 WBC 19.0 H RBC 3.35 L Hgb 9.2 L Hct 28.5 L MCHC RDW 16.3 H Lymph % (Auto) [place] % (Auto) Eos % (Auto) Lymph # [place] # Lymph # (Auto) [place] # (Auto) Eos # (Auto) Seg Neutrophils % Seg Neuts % (Manual) 85.0 H Lymphocytes % (Manual) 7.0 L Seg Neutrophils # Seg Neutrophils # Man 16.2 H Lymphocytes # (Manual) Monocytes % (Manual) Eosinophils % (Manual) Monocytes # (Manual) 1.3 H Eosinophils # (Manual) D-Dimer Heparin Anti-Xa Level ABG pH POC ABG pCO2 POC ABG pO2 ABG pO2 ABG HCO3 ABG O2 Saturation ABG Base Excess ABG Hemoglobin ABG Oxyhemoglobin VBG pH ABG Sodium ABG Potassium ABG Glucose Oxyhemoglobin Sodium Potassium Chloride Carbon Dioxide BUN Creatinine Glucose POC Glucose 182 H 150 H Lactic Acid Calcium Ferritin AST Alkaline Phosphatase Magnesium Lactate Dehydrogenase Total Creatine Kinase CK-MB (CK-2) C-Reactive Protein Total Protein Albumin Troponin T HDL Cholesterol Arterial Blood Glucose Urine WBC (Auto) Urine Creatinine Urine Total Protein Phenytoin Coronavirus (PCR) Crossmatch 06/09/20 06/09/20 06/09/20 05:16 05:24 11:29 WBC RBC Hgb Hct MCHC RDW Lymph % (Auto) [place] % (Auto) Eos % (Auto) Lymph # [place] # Lymph # (Auto) [place] # (Auto) Eos # (Auto) Seg Neutrophils % Seg Neuts % (Manual) Lymphocytes % (Manual) Seg Neutrophils # Seg Neutrophils # Man Lymphocytes # (Manual) Monocytes % (Manual) Eosinophils % (Manual) Monocytes # (Manual) Eosinophils # (Manual) D-Dimer Heparin Anti-Xa Level ABG pH POC ABG pCO2 POC ABG pO2 ABG pO2 ABG HCO3 ABG O2 Saturation ABG Base Excess ABG Hemoglobin ABG Oxyhemoglobin VBG pH ABG Sodium ABG Potassium ABG Glucose Oxyhemoglobin Sodium 133 L Potassium Chloride Carbon Dioxide 19 L BUN 109 H Creatinine 2.1 H Glucose 133 H POC Glucose 128 H 119 H Lactic Acid Calcium 7.7 L Ferritin AST Alkaline Phosphatase < 5 L Magnesium Lactate Dehydrogenase Total Creatine Kinase CK-MB (CK-2) C-Reactive Protein Total Protein 4.6 L Albumin < 0.2 L Troponin T HDL Cholesterol Arterial Blood Glucose Urine WBC (Auto) Urine Creatinine Urine Total Protein Phenytoin Coronavirus (PCR) Crossmatch 06/09/20 06/10/20 06/10/20 17:32 00:00 05:49 WBC RBC Hgb Hct MCHC RDW Lymph % (Auto) [place] % (Auto) Eos % (Auto) Lymph # [place] # Lymph # (Auto) [place] # (Auto) Eos # (Auto) Seg Neutrophils % Seg Neuts % (Manual) Lymphocytes % (Manual) Seg Neutrophils # Seg Neutrophils # Man Lymphocytes # (Manual) Monocytes % (Manual) Eosinophils % (Manual) Monocytes # (Manual) Eosinophils # (Manual) D-Dimer Heparin Anti-Xa Level 0.19 L ABG pH POC ABG pCO2 POC ABG pO2 ABG pO2 ABG HCO3 ABG O2 Saturation ABG Base Excess ABG Hemoglobin ABG Oxyhemoglobin VBG pH ABG Sodium ABG Potassium ABG Glucose Oxyhemoglobin Sodium Potassium Chloride Carbon Dioxide BUN Creatinine Glucose POC Glucose 106 H 117 H Lactic Acid Calcium Ferritin AST Alkaline Phosphatase Magnesium Lactate Dehydrogenase Total Creatine Kinase CK-MB (CK-2) C-Reactive Protein Total Protein Albumin Troponin T HDL Cholesterol Arterial Blood Glucose Urine WBC (Auto) Urine Creatinine Urine Total Protein Phenytoin Coronavirus (PCR) Crossmatch 06/10/20 06/10/20 06/10/20 05:54 07:40 11:40 WBC RBC Hgb Hct MCHC RDW Lymph % (Auto) [place] % (Auto) Eos % (Auto) Lymph # [place] # Lymph # (Auto) [place] # (Auto) Eos # (Auto) Seg Neutrophils % Seg Neuts % (Manual) Lymphocytes % (Manual) Seg Neutrophils # Seg Neutrophils # Man Lymphocytes # (Manual) Monocytes % (Manual) Eosinophils % (Manual) Monocytes # (Manual) Eosinophils # (Manual) D-Dimer Heparin Anti-Xa Level ABG pH POC ABG pCO2 POC ABG pO2 ABG pO2 ABG HCO3 ABG O2 Saturation ABG Base Excess ABG Hemoglobin ABG Oxyhemoglobin VBG pH ABG Sodium ABG Potassium ABG Glucose Oxyhemoglobin Sodium 146 H D Potassium Chloride Carbon Dioxide 20 L BUN 99 H Creatinine 1.9 H Glucose 121 H POC Glucose 127 H 138 H Lactic Acid Calcium 8.2 L Ferritin AST Alkaline Phosphatase Magnesium Lactate Dehydrogenase Total Creatine Kinase CK-MB (CK-2) C-Reactive Protein Total Protein Albumin Troponin T HDL Cholesterol Arterial Blood Glucose Urine WBC (Auto) Urine Creatinine Urine Total Protein Phenytoin Coronavirus (PCR) Crossmatch 06/10/20 06/10/20 06/10/20 14:44 17:31 23:22 WBC RBC Hgb Hct MCHC RDW Lymph % (Auto) [place] % (Auto) Eos % (Auto) Lymph # [place] # Lymph # (Auto) [place] # (Auto) Eos # (Auto) Seg Neutrophils % Seg Neuts % (Manual) Lymphocytes % (Manual) Seg Neutrophils # Seg Neutrophils # Man Lymphocytes # (Manual) Monocytes % (Manual) Eosinophils % (Manual) Monocytes # (Manual) Eosinophils # (Manual) D-Dimer Heparin Anti-Xa Level 0.17 L ABG pH POC ABG pCO2 POC ABG pO2 ABG pO2 ABG HCO3 ABG O2 Saturation ABG Base Excess ABG Hemoglobin ABG Oxyhemoglobin VBG pH ABG Sodium ABG Potassium ABG Glucose Oxyhemoglobin Sodium Potassium Chloride Carbon Dioxide BUN Creatinine Glucose POC Glucose 128 H 114 H Lactic Acid Calcium Ferritin AST Alkaline Phosphatase Magnesium Lactate Dehydrogenase Total Creatine Kinase CK-MB (CK-2) C-Reactive Protein Total Protein Albumin Troponin T HDL Cholesterol Arterial Blood Glucose Urine WBC (Auto) Urine Creatinine Urine Total Protein Phenytoin Coronavirus (PCR) Crossmatch 06/11/20 06/11/20 06/11/20 00:22 03:45 03:45 WBC 14.6 H RBC 2.77 L Hgb 7.9 L Hct 24.3 L MCHC RDW 16.8 H Lymph % (Auto) 6.6 L [place] % (Auto) 8.5 H Eos % (Auto) Lymph # 1.0 L [place] # 1.2 H Lymph # (Auto) [place] # (Auto) Eos # (Auto) Seg Neutrophils % 82.9 H Seg Neuts % (Manual) Lymphocytes % (Manual) Seg Neutrophils # 12.1 H Seg Neutrophils # Man Lymphocytes # (Manual) Monocytes % (Manual) Eosinophils % (Manual) Monocytes # (Manual) Eosinophils # (Manual) D-Dimer Heparin Anti-Xa Level 0.24 L ABG pH POC ABG pCO2 POC ABG pO2 ABG pO2 ABG HCO3 ABG O2 Saturation ABG Base Excess ABG Hemoglobin ABG Oxyhemoglobin VBG pH ABG Sodium ABG Potassium ABG Glucose Oxyhemoglobin Sodium Potassium Chloride Carbon Dioxide 20 L BUN 88 H Creatinine 1.5 H Glucose 111 H POC Glucose Lactic Acid Calcium 8.2 L Ferritin AST Alkaline Phosphatase Magnesium Lactate Dehydrogenase Total Creatine Kinase CK-MB (CK-2) C-Reactive Protein Total Protein Albumin Troponin T HDL Cholesterol Arterial Blood Glucose Urine WBC (Auto) Urine Creatinine Urine Total Protein Phenytoin Coronavirus (PCR) Crossmatch 06/11/20 06/11/20 06/11/20 06:03 10:22 11:11 WBC RBC Hgb Hct MCHC RDW Lymph % (Auto) [place] % (Auto) Eos % (Auto) Lymph # [place] # Lymph # (Auto) [place] # (Auto) Eos # (Auto) Seg Neutrophils % Seg Neuts % (Manual) Lymphocytes % (Manual) Seg Neutrophils # Seg Neutrophils # Man Lymphocytes # (Manual) Monocytes % (Manual) Eosinophils % (Manual) Monocytes # (Manual) Eosinophils # (Manual) D-Dimer Heparin Anti-Xa Level 0.26 L ABG pH POC ABG pCO2 POC ABG pO2 ABG pO2 ABG HCO3 ABG O2 Saturation ABG Base Excess ABG Hemoglobin 9.6 L ABG Oxyhemoglobin VBG pH ABG Sodium ABG Potassium ABG Glucose Oxyhemoglobin Sodium Potassium Chloride Carbon Dioxide BUN Creatinine Glucose POC Glucose 114 H Lactic Acid Calcium Ferritin AST Alkaline Phosphatase Magnesium Lactate Dehydrogenase Total Creatine Kinase CK-MB (CK-2) C-Reactive Protein Total Protein Albumin Troponin T HDL Cholesterol Arterial Blood Glucose Urine WBC (Auto) Urine Creatinine Urine Total Protein Phenytoin Coronavirus (PCR) Crossmatch 06/11/20 06/11/20 06/12/20 12:24 17:24 00:21 WBC RBC Hgb Hct MCHC RDW Lymph % (Auto) [place] % (Auto) Eos % (Auto) Lymph # [place] # Lymph # (Auto) [place] # (Auto) Eos # (Auto) Seg Neutrophils % Seg Neuts % (Manual) Lymphocytes % (Manual) Seg Neutrophils # Seg Neutrophils # Man Lymphocytes # (Manual) Monocytes % (Manual) Eosinophils % (Manual) Monocytes # (Manual) Eosinophils # (Manual) D-Dimer Heparin Anti-Xa Level ABG pH POC ABG pCO2 POC ABG pO2 ABG pO2 ABG HCO3 ABG O2 Saturation ABG Base Excess ABG Hemoglobin ABG Oxyhemoglobin VBG pH ABG Sodium ABG Potassium ABG Glucose Oxyhemoglobin Sodium Potassium Chloride Carbon Dioxide BUN Creatinine Glucose POC Glucose 119 H 126 H 117 H Lactic Acid Calcium Ferritin AST Alkaline Phosphatase Magnesium Lactate Dehydrogenase Total Creatine Kinase CK-MB (CK-2) C-Reactive Protein Total Protein Albumin Troponin T HDL Cholesterol Arterial Blood Glucose Urine WBC (Auto) Urine Creatinine Urine Total Protein Phenytoin Coronavirus (PCR) Crossmatch 06/12/20 06/12/20 06/12/20 02:46 02:46 05:46 WBC 13.2 H RBC 2.83 L Hgb 8.3 L Hct 24.3 L MCHC RDW 16.6 H Lymph % (Auto) 6.2 L [place] % (Auto) 9.5 H Eos % (Auto) Lymph # 0.8 L [place] # 1.3 H Lymph # (Auto) [place] # (Auto) Eos # (Auto) Seg Neutrophils % 81.9 H Seg Neuts % (Manual) Lymphocytes % (Manual) Seg Neutrophils # 10.9 H Seg Neutrophils # Man Lymphocytes # (Manual) Monocytes % (Manual) Eosinophils % (Manual) Monocytes # (Manual) Eosinophils # (Manual) D-Dimer Heparin Anti-Xa Level ABG pH POC ABG pCO2 POC ABG pO2 ABG pO2 ABG HCO3 ABG O2 Saturation ABG Base Excess ABG Hemoglobin ABG Oxyhemoglobin VBG pH ABG Sodium ABG Potassium ABG Glucose Oxyhemoglobin Sodium Potassium 3.5 L Chloride Carbon Dioxide BUN 77 H Creatinine 1.3 H Glucose POC Glucose 132 H Lactic Acid Calcium 8.3 L Ferritin AST Alkaline Phosphatase Magnesium Lactate Dehydrogenase Total Creatine Kinase CK-MB (CK-2) C-Reactive Protein Total Protein Albumin Troponin T HDL Cholesterol Arterial Blood Glucose Urine WBC (Auto) Urine Creatinine Urine Total Protein Phenytoin Coronavirus (PCR) Crossmatch 06/12/20 06/12/20 06/12/20 09:20 12:16 17:48 WBC RBC Hgb Hct MCHC RDW Lymph % (Auto) [place] % (Auto) Eos % (Auto) Lymph # [place] # Lymph # (Auto) [place] # (Auto) Eos # (Auto) Seg Neutrophils % Seg Neuts % (Manual) Lymphocytes % (Manual) Seg Neutrophils # Seg Neutrophils # Man Lymphocytes # (Manual) Monocytes % (Manual) Eosinophils % (Manual) Monocytes # (Manual) Eosinophils # (Manual) D-Dimer Heparin Anti-Xa Level ABG pH POC ABG pCO2 POC ABG pO2 ABG pO2 91.1 H ABG HCO3 ABG O2 Saturation ABG Base Excess ABG Hemoglobin ABG Oxyhemoglobin VBG pH ABG Sodium ABG Potassium ABG Glucose Oxyhemoglobin 94.8 L Sodium Potassium Chloride Carbon Dioxide BUN Creatinine Glucose POC Glucose 167 H 182 H Lactic Acid Calcium Ferritin AST Alkaline Phosphatase Magnesium Lactate Dehydrogenase Total Creatine Kinase CK-MB (CK-2) C-Reactive Protein Total Protein Albumin Troponin T HDL Cholesterol Arterial Blood Glucose Urine WBC (Auto) Urine Creatinine Urine Total Protein Phenytoin Coronavirus (PCR) Crossmatch 06/13/20 06/13/20 06/13/20 00:08 05:37 09:09 WBC RBC Hgb Hct MCHC RDW Lymph % (Auto) [place] % (Auto) Eos % (Auto) Lymph # [place] # Lymph # (Auto) [place] # (Auto) Eos # (Auto) Seg Neutrophils % Seg Neuts % (Manual) Lymphocytes % (Manual) Seg Neutrophils # Seg Neutrophils # Man Lymphocytes # (Manual) Monocytes % (Manual) Eosinophils % (Manual) Monocytes # (Manual) Eosinophils # (Manual) D-Dimer Heparin Anti-Xa Level 0.86 H ABG pH POC ABG pCO2 POC ABG pO2 ABG pO2 ABG HCO3 ABG O2 Saturation ABG Base Excess ABG Hemoglobin ABG Oxyhemoglobin VBG pH ABG Sodium ABG Potassium ABG Glucose Oxyhemoglobin Sodium Potassium Chloride Carbon Dioxide BUN Creatinine Glucose POC Glucose 142 H 119 H Lactic Acid Calcium Ferritin AST Alkaline Phosphatase Magnesium Lactate Dehydrogenase Total Creatine Kinase CK-MB (CK-2) C-Reactive Protein Total Protein Albumin Troponin T HDL Cholesterol Arterial Blood Glucose Urine WBC (Auto) Urine Creatinine Urine Total Protein Phenytoin Coronavirus (PCR) Crossmatch 06/13/20 06/13/20 06/13/20 12:28 17:55 21:17 WBC RBC Hgb Hct MCHC RDW Lymph % (Auto) [place] % (Auto) Eos % (Auto) Lymph # [place] # Lymph # (Auto) [place] # (Auto) Eos # (Auto) Seg Neutrophils % Seg Neuts % (Manual) Lymphocytes % (Manual) Seg Neutrophils # Seg Neutrophils # Man Lymphocytes # (Manual) Monocytes % (Manual) Eosinophils % (Manual) Monocytes # (Manual) Eosinophils # (Manual) D-Dimer Heparin Anti-Xa Level ABG pH POC ABG pCO2 POC ABG pO2 ABG pO2 ABG HCO3 ABG O2 Saturation ABG Base Excess ABG Hemoglobin ABG Oxyhemoglobin VBG pH ABG Sodium ABG Potassium ABG Glucose Oxyhemoglobin Sodium Potassium Chloride Carbon Dioxide BUN 61 H Creatinine Glucose 131 H POC Glucose 165 H 174 H Lactic Acid Calcium Ferritin AST Alkaline Phosphatase Magnesium Lactate Dehydrogenase Total Creatine Kinase CK-MB (CK-2) C-Reactive Protein Total Protein Albumin Troponin T HDL Cholesterol Arterial Blood Glucose Urine WBC (Auto) Urine Creatinine Urine Total Protein Phenytoin Coronavirus (PCR) Crossmatch 06/13/20 06/13/20 06/14/20 21:17 23:50 05:34 WBC RBC Hgb Hct MCHC RDW Lymph % (Auto) [place] % (Auto) Eos % (Auto) Lymph # [place] # Lymph # (Auto) [place] # (Auto) Eos # (Auto) Seg Neutrophils % Seg Neuts % (Manual) Lymphocytes % (Manual) Seg Neutrophils # Seg Neutrophils # Man Lymphocytes # (Manual) Monocytes % (Manual) Eosinophils % (Manual) Monocytes # (Manual) Eosinophils # (Manual) D-Dimer Heparin Anti-Xa Level 0.72 H ABG pH POC ABG pCO2 POC ABG pO2 ABG pO2 ABG HCO3 ABG O2 Saturation ABG Base Excess ABG Hemoglobin ABG Oxyhemoglobin VBG pH ABG Sodium ABG Potassium ABG Glucose Oxyhemoglobin Sodium 146 H Potassium Chloride 107.6 H Carbon Dioxide BUN 61 H Creatinine 1.3 H Glucose 135 H POC Glucose 146 H Lactic Acid Calcium Ferritin AST Alkaline Phosphatase Magnesium Lactate Dehydrogenase Total Creatine Kinase CK-MB (CK-2) C-Reactive Protein Total Protein Albumin Troponin T HDL Cholesterol Arterial Blood Glucose Urine WBC (Auto) Urine Creatinine Urine Total Protein Phenytoin Coronavirus (PCR) Crossmatch 06/14/20 06/14/20 06/14/20 06:11 09:28 11:30 WBC RBC Hgb Hct MCHC RDW Lymph % (Auto) [place] % (Auto) Eos % (Auto) Lymph # [place] # Lymph # (Auto) [place] # (Auto) Eos # (Auto) Seg Neutrophils % Seg Neuts % (Manual) Lymphocytes % (Manual) Seg Neutrophils # Seg Neutrophils # Man Lymphocytes # (Manual) Monocytes % (Manual) Eosinophils % (Manual) Monocytes # (Manual) Eosinophils # (Manual) D-Dimer Heparin Anti-Xa Level 0.90 H ABG pH POC ABG pCO2 POC ABG pO2 ABG pO2 ABG HCO3 ABG O2 Saturation ABG Base Excess ABG Hemoglobin ABG Oxyhemoglobin VBG pH ABG Sodium ABG Potassium ABG Glucose Oxyhemoglobin Sodium Potassium Chloride Carbon Dioxide BUN Creatinine Glucose POC Glucose 141 H 186 H Lactic Acid Calcium Ferritin AST Alkaline Phosphatase Magnesium Lactate Dehydrogenase Total Creatine Kinase CK-MB (CK-2) C-Reactive Protein Total Protein Albumin Troponin T HDL Cholesterol Arterial Blood Glucose Urine WBC (Auto) Urine Creatinine Urine Total Protein Phenytoin Coronavirus (PCR) Crossmatch 06/14/20 06/14/20 06/14/20 16:07 18:16 23:51 WBC RBC Hgb Hct MCHC RDW Lymph % (Auto) [place] % (Auto) Eos % (Auto) Lymph # [place] # Lymph # (Auto) [place] # (Auto) Eos # (Auto) Seg Neutrophils % Seg Neuts % (Manual) Lymphocytes % (Manual) Seg Neutrophils # Seg Neutrophils # Man Lymphocytes # (Manual) Monocytes % (Manual) Eosinophils % (Manual) Monocytes # (Manual) Eosinophils # (Manual) D-Dimer Heparin Anti-Xa Level 0.82 H ABG pH POC ABG pCO2 POC ABG pO2 ABG pO2 ABG HCO3 ABG O2 Saturation ABG Base Excess ABG Hemoglobin ABG Oxyhemoglobin VBG pH ABG Sodium ABG Potassium ABG Glucose Oxyhemoglobin Sodium Potassium Chloride Carbon Dioxide BUN Creatinine Glucose POC Glucose 106 H 154 H Lactic Acid Calcium Ferritin AST Alkaline Phosphatase Magnesium Lactate Dehydrogenase Total Creatine Kinase CK-MB (CK-2) C-Reactive Protein Total Protein Albumin Troponin T HDL Cholesterol Arterial Blood Glucose Urine WBC (Auto) Urine Creatinine Urine Total Protein Phenytoin Coronavirus (PCR) Crossmatch 06/15/20 06/15/20 06/15/20 04:24 04:24 05:59 WBC RBC 2.75 L Hgb 7.9 L Hct 24.0 L MCHC RDW 16.4 H Lymph % (Auto) 12.9 L [place] % (Auto) 8.7 H Eos % (Auto) 4.6 H Lymph # 1.1 L [place] # Lymph # (Auto) [place] # (Auto) Eos # (Auto) Seg Neutrophils % 73.2 H Seg Neuts % (Manual) Lymphocytes % (Manual) Seg Neutrophils # Seg Neutrophils # Man Lymphocytes # (Manual) Monocytes % (Manual) Eosinophils % (Manual) Monocytes # (Manual) Eosinophils # (Manual) D-Dimer Heparin Anti-Xa Level ABG pH POC ABG pCO2 POC ABG pO2 ABG pO2 ABG HCO3 ABG O2 Saturation ABG Base Excess ABG Hemoglobin ABG Oxyhemoglobin VBG pH ABG Sodium ABG Potassium ABG Glucose Oxyhemoglobin Sodium Potassium 3.4 L Chloride Carbon Dioxide BUN 55 H Creatinine 1.3 H Glucose 142 H POC Glucose 131 H Lactic Acid Calcium Ferritin AST Alkaline Phosphatase Magnesium Lactate Dehydrogenase Total Creatine Kinase CK-MB (CK-2) C-Reactive Protein Total Protein Albumin Troponin T HDL Cholesterol Arterial Blood Glucose Urine WBC (Auto) Urine Creatinine Urine Total Protein Phenytoin Coronavirus (PCR) Crossmatch 06/15/20 06/15/20 06/16/20 12:33 17:07 00:22 WBC RBC Hgb Hct MCHC RDW Lymph % (Auto) [place] % (Auto) Eos % (Auto) Lymph # [place] # Lymph # (Auto) [place] # (Auto) Eos # (Auto) Seg Neutrophils % Seg Neuts % (Manual) Lymphocytes % (Manual) Seg Neutrophils # Seg Neutrophils # Man Lymphocytes # (Manual) Monocytes % (Manual) Eosinophils % (Manual) Monocytes # (Manual) Eosinophils # (Manual) D-Dimer Heparin Anti-Xa Level 0.21 L ABG pH POC ABG pCO2 POC ABG pO2 ABG pO2 ABG HCO3 ABG O2 Saturation ABG Base Excess ABG Hemoglobin ABG Oxyhemoglobin VBG pH ABG Sodium ABG Potassium ABG Glucose Oxyhemoglobin Sodium Potassium Chloride Carbon Dioxide BUN Creatinine Glucose POC Glucose 180 H 185 H Lactic Acid Calcium Ferritin AST Alkaline Phosphatase Magnesium Lactate Dehydrogenase Total Creatine Kinase CK-MB (CK-2) C-Reactive Protein Total Protein Albumin Troponin T HDL Cholesterol Arterial Blood Glucose Urine WBC (Auto) Urine Creatinine Urine Total Protein Phenytoin Coronavirus (PCR) Crossmatch 06/16/20 06/16/20 06/16/20 01:45 08:06 09:15 WBC RBC Hgb Hct MCHC RDW Lymph % (Auto) [place] % (Auto) Eos % (Auto) Lymph # [place] # Lymph # (Auto) [place] # (Auto) Eos # (Auto) Seg Neutrophils % Seg Neuts % (Manual) Lymphocytes % (Manual) Seg Neutrophils # Seg Neutrophils # Man Lymphocytes # (Manual) Monocytes % (Manual) Eosinophils % (Manual) Monocytes # (Manual) Eosinophils # (Manual) D-Dimer Heparin Anti-Xa Level ABG pH POC ABG pCO2 POC ABG pO2 ABG pO2 ABG HCO3 ABG O2 Saturation ABG Base Excess ABG Hemoglobin ABG Oxyhemoglobin VBG pH ABG Sodium ABG Potassium ABG Glucose Oxyhemoglobin Sodium Potassium Chloride Carbon Dioxide BUN 49 H Creatinine Glucose 154 H POC Glucose 140 H 171 H Lactic Acid Calcium Ferritin AST Alkaline Phosphatase Magnesium Lactate Dehydrogenase Total Creatine Kinase CK-MB (CK-2) C-Reactive Protein Total Protein Albumin Troponin T HDL Cholesterol Arterial Blood Glucose Urine WBC (Auto) Urine Creatinine Urine Total Protein Phenytoin Coronavirus (PCR) Crossmatch 06/16/20 06/16/20 06/16/20 10:46 12:33 17:54 WBC RBC Hgb Hct MCHC RDW Lymph % (Auto) [place] % (Auto) Eos % (Auto) Lymph # [place] # Lymph # (Auto) [place] # (Auto) Eos # (Auto) Seg Neutrophils % Seg Neuts % (Manual) Lymphocytes % (Manual) Seg Neutrophils # Seg Neutrophils # Man Lymphocytes # (Manual) Monocytes % (Manual) Eosinophils % (Manual) Monocytes # (Manual) Eosinophils # (Manual) D-Dimer Heparin Anti-Xa Level 0.12 L ABG pH POC ABG pCO2 POC ABG pO2 ABG pO2 ABG HCO3 ABG O2 Saturation ABG Base Excess ABG Hemoglobin ABG Oxyhemoglobin VBG pH ABG Sodium ABG Potassium ABG Glucose Oxyhemoglobin Sodium Potassium Chloride Carbon Dioxide BUN Creatinine Glucose POC Glucose 166 H 151 H Lactic Acid Calcium Ferritin AST Alkaline Phosphatase Magnesium Lactate Dehydrogenase Total Creatine Kinase CK-MB (CK-2) C-Reactive Protein Total Protein Albumin Troponin T HDL Cholesterol Arterial Blood Glucose Urine WBC (Auto) Urine Creatinine Urine Total Protein Phenytoin Coronavirus (PCR) Crossmatch 06/16/20 06/17/20 06/17/20 18:47 00:00 02:19 WBC RBC Hgb Hct MCHC RDW Lymph % (Auto) [place] % (Auto) Eos % (Auto) Lymph # [place] # Lymph # (Auto) [place] # (Auto) Eos # (Auto) Seg Neutrophils % Seg Neuts % (Manual) Lymphocytes % (Manual) Seg Neutrophils # Seg Neutrophils # Man Lymphocytes # (Manual) Monocytes % (Manual) Eosinophils % (Manual) Monocytes # (Manual) Eosinophils # (Manual) D-Dimer Heparin Anti-Xa Level 0.73 H 0.77 H ABG pH POC ABG pCO2 POC ABG pO2 ABG pO2 ABG HCO3 ABG O2 Saturation ABG Base Excess ABG Hemoglobin ABG Oxyhemoglobin VBG pH ABG Sodium ABG Potassium ABG Glucose Oxyhemoglobin Sodium Potassium Chloride Carbon Dioxide BUN Creatinine Glucose POC Glucose 139 H Lactic Acid Calcium Ferritin AST Alkaline Phosphatase Magnesium Lactate Dehydrogenase Total Creatine Kinase CK-MB (CK-2) C-Reactive Protein Total Protein Albumin Troponin T HDL Cholesterol Arterial Blood Glucose Urine WBC (Auto) Urine Creatinine Urine Total Protein Phenytoin Coronavirus (PCR) Crossmatch 06/17/20 06/17/20 06/17/20 06:07 11:42 16:43 WBC RBC Hgb Hct MCHC RDW Lymph % (Auto) [place] % (Auto) Eos % (Auto) Lymph # [place] # Lymph # (Auto) [place] # (Auto) Eos # (Auto) Seg Neutrophils % Seg Neuts % (Manual) Lymphocytes % (Manual) Seg Neutrophils # Seg Neutrophils # Man Lymphocytes # (Manual) Monocytes % (Manual) Eosinophils % (Manual) Monocytes # (Manual) Eosinophils # (Manual) D-Dimer Heparin Anti-Xa Level 0.73 H ABG pH POC ABG pCO2 POC ABG pO2 ABG pO2 ABG HCO3 ABG O2 Saturation ABG Base Excess ABG Hemoglobin ABG Oxyhemoglobin VBG pH ABG Sodium ABG Potassium ABG Glucose Oxyhemoglobin Sodium Potassium Chloride Carbon Dioxide BUN Creatinine Glucose POC Glucose 169 H 169 H Lactic Acid Calcium Ferritin AST Alkaline Phosphatase Magnesium Lactate Dehydrogenase Total Creatine Kinase CK-MB (CK-2) C-Reactive Protein Total Protein Albumin Troponin T HDL Cholesterol Arterial Blood Glucose Urine WBC (Auto) Urine Creatinine Urine Total Protein Phenytoin Coronavirus (PCR) Crossmatch 06/17/20 06/17/20 06/17/20 18:18 23:08 23:16 WBC RBC Hgb Hct MCHC RDW Lymph % (Auto) [place] % (Auto) Eos % (Auto) Lymph # [place] # Lymph # (Auto) [place] # (Auto) Eos # (Auto) Seg Neutrophils % Seg Neuts % (Manual) Lymphocytes % (Manual) Seg Neutrophils # Seg Neutrophils # Man Lymphocytes # (Manual) Monocytes % (Manual) Eosinophils % (Manual) Monocytes # (Manual) Eosinophils # (Manual) D-Dimer Heparin Anti-Xa Level 0.71 H ABG pH POC ABG pCO2 POC ABG pO2 ABG pO2 ABG HCO3 ABG O2 Saturation ABG Base Excess ABG Hemoglobin ABG Oxyhemoglobin VBG pH ABG Sodium ABG Potassium ABG Glucose Oxyhemoglobin Sodium Potassium Chloride Carbon Dioxide BUN Creatinine Glucose POC Glucose 159 H 134 H Lactic Acid Calcium Ferritin AST Alkaline Phosphatase Magnesium Lactate Dehydrogenase Total Creatine Kinase CK-MB (CK-2) C-Reactive Protein Total Protein Albumin Troponin T HDL Cholesterol Arterial Blood Glucose Urine WBC (Auto) Urine Creatinine Urine Total Protein Phenytoin Coronavirus (PCR) Crossmatch 06/18/20 06/18/20 06/18/20 04:42 05:52 11:50 WBC RBC Hgb Hct MCHC RDW Lymph % (Auto) [place] % (Auto) Eos % (Auto) Lymph # [place] # Lymph # (Auto) [place] # (Auto) Eos # (Auto) Seg Neutrophils % Seg Neuts % (Manual) Lymphocytes % (Manual) Seg Neutrophils # Seg Neutrophils # Man Lymphocytes # (Manual) Monocytes % (Manual) Eosinophils % (Manual) Monocytes # (Manual) Eosinophils # (Manual) D-Dimer Heparin Anti-Xa Level ABG pH POC ABG pCO2 POC ABG pO2 ABG pO2 ABG HCO3 ABG O2 Saturation ABG Base Excess ABG Hemoglobin ABG Oxyhemoglobin VBG pH ABG Sodium ABG Potassium ABG Glucose Oxyhemoglobin Sodium Potassium Chloride Carbon Dioxide BUN 44 H Creatinine Glucose 115 H POC Glucose 171 H 167 H Lactic Acid Calcium Ferritin AST Alkaline Phosphatase Magnesium Lactate Dehydrogenase Total Creatine Kinase CK-MB (CK-2) C-Reactive Protein Total Protein Albumin Troponin T HDL Cholesterol Arterial Blood Glucose Urine WBC (Auto) Urine Creatinine Urine Total Protein Phenytoin Coronavirus (PCR) Crossmatch 06/18/20 06/19/20 06/19/20 23:46 05:48 07:52 WBC RBC Hgb Hct MCHC RDW Lymph % (Auto) [place] % (Auto) Eos % (Auto) Lymph # [place] # Lymph # (Auto) [place] # (Auto) Eos # (Auto) Seg Neutrophils % Seg Neuts % (Manual) Lymphocytes % (Manual) Seg Neutrophils # Seg Neutrophils # Man Lymphocytes # (Manual) Monocytes % (Manual) Eosinophils % (Manual) Monocytes # (Manual) Eosinophils # (Manual) D-Dimer Heparin Anti-Xa Level ABG pH POC ABG pCO2 POC ABG pO2 ABG pO2 ABG HCO3 ABG O2 Saturation ABG Base Excess ABG Hemoglobin ABG Oxyhemoglobin VBG pH ABG Sodium ABG Potassium ABG Glucose Oxyhemoglobin Sodium Potassium Chloride Carbon Dioxide BUN Creatinine Glucose POC Glucose 130 H 207 H 175 H Lactic Acid Calcium Ferritin AST Alkaline Phosphatase Magnesium Lactate Dehydrogenase Total Creatine Kinase CK-MB (CK-2) C-Reactive Protein Total Protein Albumin Troponin T HDL Cholesterol Arterial Blood Glucose Urine WBC (Auto) Urine Creatinine Urine Total Protein Phenytoin Coronavirus (PCR) Crossmatch 06/19/20 06/19/20 06/20/20 11:42 22:54 05:17 WBC RBC Hgb Hct MCHC RDW Lymph % (Auto) [place] % (Auto) Eos % (Auto) Lymph # [place] # Lymph # (Auto) [place] # (Auto) Eos # (Auto) Seg Neutrophils % Seg Neuts % (Manual) Lymphocytes % (Manual) Seg Neutrophils # Seg Neutrophils # Man Lymphocytes # (Manual) Monocytes % (Manual) Eosinophils % (Manual) Monocytes # (Manual) Eosinophils # (Manual) D-Dimer Heparin Anti-Xa Level ABG pH POC ABG pCO2 POC ABG pO2 ABG pO2 ABG HCO3 ABG O2 Saturation ABG Base Excess ABG Hemoglobin ABG Oxyhemoglobin VBG pH ABG Sodium ABG Potassium ABG Glucose Oxyhemoglobin Sodium Potassium Chloride Carbon Dioxide BUN Creatinine Glucose POC Glucose 166 H 135 H 218 H Lactic Acid Calcium Ferritin AST Alkaline Phosphatase Magnesium Lactate Dehydrogenase Total Creatine Kinase CK-MB (CK-2) C-Reactive Protein Total Protein Albumin Troponin T HDL Cholesterol Arterial Blood Glucose Urine WBC (Auto) Urine Creatinine Urine Total Protein Phenytoin Coronavirus (PCR) Crossmatch 06/20/20 06/20/20 06/20/20 12:04 16:25 16:35 WBC RBC Hgb Hct MCHC RDW Lymph % (Auto) [place] % (Auto) Eos % (Auto) Lymph # [place] # Lymph # (Auto) [place] # (Auto) Eos # (Auto) Seg Neutrophils % Seg Neuts % (Manual) Lymphocytes % (Manual) Seg Neutrophils # Seg Neutrophils # Man Lymphocytes # (Manual) Monocytes % (Manual) Eosinophils % (Manual) Monocytes # (Manual) Eosinophils # (Manual) D-Dimer Heparin Anti-Xa Level ABG pH POC ABG pCO2 POC ABG pO2 ABG pO2 59.6 L ABG HCO3 28.7 H ABG O2 Saturation 93.5 L ABG Base Excess 3.4 H ABG Hemoglobin 7.2 L ABG Oxyhemoglobin VBG pH ABG Sodium ABG Potassium ABG Glucose Oxyhemoglobin 91.3 L Sodium Potassium Chloride Carbon Dioxide BUN Creatinine Glucose POC Glucose 194 H 137 H Lactic Acid Calcium Ferritin AST Alkaline Phosphatase Magnesium Lactate Dehydrogenase Total Creatine Kinase CK-MB (CK-2) C-Reactive Protein Total Protein Albumin Troponin T HDL Cholesterol Arterial Blood Glucose Urine WBC (Auto) Urine Creatinine Urine Total Protein Phenytoin Coronavirus (PCR) Crossmatch 06/20/20 06/21/20 06/21/20 23:59 06:25 12:01 WBC RBC Hgb Hct MCHC RDW Lymph % (Auto) [place] % (Auto) Eos % (Auto) Lymph # [place] # Lymph # (Auto) [place] # (Auto) Eos # (Auto) Seg Neutrophils % Seg Neuts % (Manual) Lymphocytes % (Manual) Seg Neutrophils # Seg Neutrophils # Man Lymphocytes # (Manual) Monocytes % (Manual) Eosinophils % (Manual) Monocytes # (Manual) Eosinophils # (Manual) D-Dimer Heparin Anti-Xa Level ABG pH POC ABG pCO2 POC ABG pO2 ABG pO2 ABG HCO3 ABG O2 Saturation ABG Base Excess ABG Hemoglobin ABG Oxyhemoglobin VBG pH ABG Sodium ABG Potassium ABG Glucose Oxyhemoglobin Sodium Potassium Chloride Carbon Dioxide BUN Creatinine Glucose POC Glucose 156 H 177 H 195 H Lactic Acid Calcium Ferritin AST Alkaline Phosphatase Magnesium Lactate Dehydrogenase Total Creatine Kinase CK-MB (CK-2) C-Reactive Protein Total Protein Albumin Troponin T HDL Cholesterol Arterial Blood Glucose Urine WBC (Auto) Urine Creatinine Urine Total Protein Phenytoin Coronavirus (PCR) Crossmatch 06/21/20 06/21/20 06/22/20 17:04 21:51 05:06 WBC RBC Hgb Hct MCHC RDW Lymph % (Auto) [place] % (Auto) Eos % (Auto) Lymph # [place] # Lymph # (Auto) [place] # (Auto) Eos # (Auto) Seg Neutrophils % Seg Neuts % (Manual) Lymphocytes % (Manual) Seg Neutrophils # Seg Neutrophils # Man Lymphocytes # (Manual) Monocytes % (Manual) Eosinophils % (Manual) Monocytes # (Manual) Eosinophils # (Manual) D-Dimer Heparin Anti-Xa Level ABG pH POC ABG pCO2 POC ABG pO2 ABG pO2 ABG HCO3 ABG O2 Saturation ABG Base Excess ABG Hemoglobin ABG Oxyhemoglobin VBG pH ABG Sodium ABG Potassium ABG Glucose Oxyhemoglobin Sodium Potassium Chloride Carbon Dioxide BUN Creatinine Glucose POC Glucose 156 H 154 H 167 H Lactic Acid Calcium Ferritin AST Alkaline Phosphatase Magnesium Lactate Dehydrogenase Total Creatine Kinase CK-MB (CK-2) C-Reactive Protein Total Protein Albumin Troponin T HDL Cholesterol Arterial Blood Glucose Urine WBC (Auto) Urine Creatinine Urine Total Protein Phenytoin Coronavirus (PCR) Crossmatch 06/22/20 06/22/20 06/22/20 11:20 15:27 16:58 WBC RBC Hgb Hct MCHC RDW Lymph % (Auto) [place] % (Auto) Eos % (Auto) Lymph # [place] # Lymph # (Auto) [place] # (Auto) Eos # (Auto) Seg Neutrophils % Seg Neuts % (Manual) Lymphocytes % (Manual) Seg Neutrophils # Seg Neutrophils # Man Lymphocytes # (Manual) Monocytes % (Manual) Eosinophils % (Manual) Monocytes # (Manual) Eosinophils # (Manual) D-Dimer Heparin Anti-Xa Level ABG pH 7.206 L POC ABG pCO2 79.9 H POC ABG pO2 ABG pO2 ABG HCO3 ABG O2 Saturation ABG Base Excess ABG Hemoglobin 8.3 L ABG Oxyhemoglobin VBG pH ABG Sodium ABG Potassium ABG Glucose Oxyhemoglobin Sodium Potassium Chloride Carbon Dioxide BUN Creatinine Glucose POC Glucose 181 H 230 H Lactic Acid Calcium Ferritin AST Alkaline Phosphatase Magnesium Lactate Dehydrogenase Total Creatine Kinase CK-MB (CK-2) C-Reactive Protein Total Protein Albumin Troponin T HDL Cholesterol Arterial Blood Glucose Urine WBC (Auto) Urine Creatinine Urine Total Protein Phenytoin Coronavirus (PCR) Crossmatch 06/22/20 06/23/20 06/23/20 22:26 05:49 05:49 WBC RBC 2.58 L Hgb 7.4 L Hct 23.2 L MCHC RDW 17.0 H Lymph % (Auto) [place] % (Auto) 11.2 H Eos % (Auto) Lymph # 1.0 L [place] # Lymph # (Auto) [place] # (Auto) Eos # (Auto) Seg Neutrophils % Seg Neuts % (Manual) Lymphocytes % (Manual) Seg Neutrophils # Seg Neutrophils # Man Lymphocytes # (Manual) Monocytes % (Manual) Eosinophils % (Manual) Monocytes # (Manual) Eosinophils # (Manual) D-Dimer Heparin Anti-Xa Level ABG pH POC ABG pCO2 POC ABG pO2 ABG pO2 ABG HCO3 ABG O2 Saturation ABG Base Excess ABG Hemoglobin ABG Oxyhemoglobin VBG pH ABG Sodium ABG Potassium ABG Glucose Oxyhemoglobin Sodium Potassium Chloride Carbon Dioxide BUN 68 H Creatinine 2.4 H Glucose 198 H POC Glucose 195 H Lactic Acid Calcium Ferritin AST Alkaline Phosphatase Magnesium Lactate Dehydrogenase Total Creatine Kinase CK-MB (CK-2) C-Reactive Protein Total Protein Albumin Troponin T HDL Cholesterol Arterial Blood Glucose Urine WBC (Auto) Urine Creatinine Urine Total Protein Phenytoin Coronavirus (PCR) Crossmatch 06/23/20 06/23/20 06/23/20 05:50 12:29 12:34 WBC RBC Hgb Hct MCHC RDW Lymph % (Auto) [place] % (Auto) Eos % (Auto) Lymph # [place] # Lymph # (Auto) [place] # (Auto) Eos # (Auto) Seg Neutrophils % Seg Neuts % (Manual) Lymphocytes % (Manual) Seg Neutrophils # Seg Neutrophils # Man Lymphocytes # (Manual) Monocytes % (Manual) Eosinophils % (Manual) Monocytes # (Manual) Eosinophils # (Manual) D-Dimer Heparin Anti-Xa Level ABG pH POC ABG pCO2 54.7 H POC ABG pO2 68.8 L ABG pO2 ABG HCO3 ABG O2 Saturation ABG Base Excess ABG Hemoglobin 9.8 L ABG Oxyhemoglobin 92.6 L VBG pH ABG Sodium ABG Potassium ABG Glucose Oxyhemoglobin Sodium Potassium Chloride Carbon Dioxide BUN Creatinine Glucose POC Glucose 202 H 218 H Lactic Acid Calcium Ferritin AST Alkaline Phosphatase Magnesium Lactate Dehydrogenase Total Creatine Kinase CK-MB (CK-2) C-Reactive Protein Total Protein Albumin Troponin T HDL Cholesterol Arterial Blood Glucose Urine WBC (Auto) Urine Creatinine Urine Total Protein Phenytoin Coronavirus (PCR) Crossmatch 06/23/20 06/23/20 06/24/20 16:02 22:22 01:06 WBC RBC Hgb Hct MCHC RDW Lymph % (Auto) [place] % (Auto) Eos % (Auto) Lymph # [place] # Lymph # (Auto) [place] # (Auto) Eos # (Auto) Seg Neutrophils % Seg Neuts % (Manual) Lymphocytes % (Manual) Seg Neutrophils # Seg Neutrophils # Man Lymphocytes # (Manual) Monocytes % (Manual) Eosinophils % (Manual) Monocytes # (Manual) Eosinophils # (Manual) D-Dimer Heparin Anti-Xa Level ABG pH POC ABG pCO2 POC ABG pO2 ABG pO2 ABG HCO3 ABG O2 Saturation ABG Base Excess ABG Hemoglobin ABG Oxyhemoglobin VBG pH ABG Sodium ABG Potassium ABG Glucose Oxyhemoglobin Sodium Potassium Chloride Carbon Dioxide BUN Creatinine Glucose POC Glucose 190 H 166 H 171 H Lactic Acid Calcium Ferritin AST Alkaline Phosphatase Magnesium Lactate Dehydrogenase Total Creatine Kinase CK-MB (CK-2) C-Reactive Protein Total Protein Albumin Troponin T HDL Cholesterol Arterial Blood Glucose Urine WBC (Auto) Urine Creatinine Urine Total Protein Phenytoin Coronavirus (PCR) Crossmatch 06/24/20 06/24/20 06/24/20 04:48 05:35 11:48 WBC RBC Hgb Hct MCHC RDW Lymph % (Auto) [place] % (Auto) Eos % (Auto) Lymph # [place] # Lymph # (Auto) [place] # (Auto) Eos # (Auto) Seg Neutrophils % Seg Neuts % (Manual) Lymphocytes % (Manual) Seg Neutrophils # Seg Neutrophils # Man Lymphocytes # (Manual) Monocytes % (Manual) Eosinophils % (Manual) Monocytes # (Manual) Eosinophils # (Manual) D-Dimer Heparin Anti-Xa Level ABG pH POC ABG pCO2 POC ABG pO2 ABG pO2 ABG HCO3 ABG O2 Saturation ABG Base Excess ABG Hemoglobin ABG Oxyhemoglobin VBG pH ABG Sodium ABG Potassium ABG Glucose Oxyhemoglobin Sodium Potassium Chloride Carbon Dioxide BUN 75 H Creatinine 2.6 H Glucose 179 H POC Glucose 172 H 153 H Lactic Acid Calcium Ferritin AST Alkaline Phosphatase Magnesium Lactate Dehydrogenase Total Creatine Kinase CK-MB (CK-2) C-Reactive Protein Total Protein Albumin Troponin T HDL Cholesterol Arterial Blood Glucose Urine WBC (Auto) Urine Creatinine Urine Total Protein Phenytoin Coronavirus (PCR) Crossmatch 06/24/20 06/24/20 06/25/20 16:38 21:52 12:00 WBC RBC Hgb Hct MCHC RDW Lymph % (Auto) [place] % (Auto) Eos % (Auto) Lymph # [place] # Lymph # (Auto) [place] # (Auto) Eos # (Auto) Seg Neutrophils % Seg Neuts % (Manual) Lymphocytes % (Manual) Seg Neutrophils # Seg Neutrophils # Man Lymphocytes # (Manual) Monocytes % (Manual) Eosinophils % (Manual) Monocytes # (Manual) Eosinophils # (Manual) D-Dimer Heparin Anti-Xa Level ABG pH POC ABG pCO2 POC ABG pO2 ABG pO2 ABG HCO3 ABG O2 Saturation ABG Base Excess ABG Hemoglobin ABG Oxyhemoglobin VBG pH ABG Sodium ABG Potassium ABG Glucose Oxyhemoglobin Sodium Potassium Chloride Carbon Dioxide BUN Creatinine Glucose POC Glucose 123 H 115 H 203 H Lactic Acid Calcium Ferritin AST Alkaline Phosphatase Magnesium Lactate Dehydrogenase Total Creatine Kinase CK-MB (CK-2) C-Reactive Protein Total Protein Albumin Troponin T HDL Cholesterol Arterial Blood Glucose Urine WBC (Auto) Urine Creatinine Urine Total Protein Phenytoin Coronavirus (PCR) Crossmatch 06/25/20 06/25/20 06/25/20 15:43 16:37 23:02 WBC RBC Hgb Hct MCHC RDW Lymph % (Auto) [place] % (Auto) Eos % (Auto) Lymph # [place] # Lymph # (Auto) [place] # (Auto) Eos # (Auto) Seg Neutrophils % Seg Neuts % (Manual) Lymphocytes % (Manual) Seg Neutrophils # Seg Neutrophils # Man Lymphocytes # (Manual) Monocytes % (Manual) Eosinophils % (Manual) Monocytes # (Manual) Eosinophils # (Manual) D-Dimer Heparin Anti-Xa Level ABG pH POC ABG pCO2 POC ABG pO2 ABG pO2 ABG HCO3 ABG O2 Saturation ABG Base Excess ABG Hemoglobin ABG Oxyhemoglobin VBG pH ABG Sodium ABG Potassium ABG Glucose Oxyhemoglobin Sodium Potassium Chloride Carbon Dioxide BUN 71 H Creatinine 1.8 H Glucose 170 H POC Glucose 191 H 126 H Lactic Acid Calcium 8.2 L Ferritin AST Alkaline Phosphatase Magnesium Lactate Dehydrogenase Total Creatine Kinase CK-MB (CK-2) C-Reactive Protein Total Protein Albumin Troponin T HDL Cholesterol Arterial Blood Glucose Urine WBC (Auto) Urine Creatinine Urine Total Protein Phenytoin Coronavirus (PCR) Crossmatch 06/26/20 06/26/20 06/26/20 06:34 06:34 09:27 WBC RBC 2.41 L Hgb 6.9 L Hct 21.5 L MCHC RDW 16.7 H Lymph % (Auto) 10.9 L [place] % (Auto) 9.6 H Eos % (Auto) Lymph # 0.7 L [place] # Lymph # (Auto) [place] # (Auto) Eos # (Auto) Seg Neutrophils % 75.4 H Seg Neuts % (Manual) Lymphocytes % (Manual) Seg Neutrophils # Seg Neutrophils # Man Lymphocytes # (Manual) Monocytes % (Manual) Eosinophils % (Manual) Monocytes # (Manual) Eosinophils # (Manual) D-Dimer Heparin Anti-Xa Level ABG pH POC ABG pCO2 POC ABG pO2 ABG pO2 ABG HCO3 ABG O2 Saturation ABG Base Excess ABG Hemoglobin ABG Oxyhemoglobin VBG pH ABG Sodium ABG Potassium ABG Glucose Oxyhemoglobin Sodium Potassium Chloride Carbon Dioxide BUN 77 H Creatinine 1.9 H Glucose 190 H POC Glucose Lactic Acid Calcium Ferritin AST Alkaline Phosphatase Magnesium Lactate Dehydrogenase Total Creatine Kinase CK-MB (CK-2) C-Reactive Protein Total Protein Albumin Troponin T HDL Cholesterol Arterial Blood Glucose Urine WBC (Auto) Urine Creatinine Urine Total Protein Phenytoin Coronavirus (PCR) Crossmatch See Detail 06/26/20 06/26/20 06/26/20 12:15 16:28 17:28 WBC RBC Hgb Hct MCHC RDW Lymph % (Auto) [place] % (Auto) Eos % (Auto) Lymph # [place] # Lymph # (Auto) [place] # (Auto) Eos # (Auto) Seg Neutrophils % Seg Neuts % (Manual) Lymphocytes % (Manual) Seg Neutrophils # Seg Neutrophils # Man Lymphocytes # (Manual) Monocytes % (Manual) Eosinophils % (Manual) Monocytes # (Manual) Eosinophils # (Manual) D-Dimer Heparin Anti-Xa Level ABG pH POC ABG pCO2 POC ABG pO2 ABG pO2 ABG HCO3 ABG O2 Saturation ABG Base Excess ABG Hemoglobin ABG Oxyhemoglobin VBG pH ABG Sodium ABG Potassium ABG Glucose Oxyhemoglobin Sodium Potassium Chloride Carbon Dioxide BUN Creatinine Glucose POC Glucose 187 H 149 H 189 H Lactic Acid Calcium Ferritin AST Alkaline Phosphatase Magnesium Lactate Dehydrogenase Total Creatine Kinase CK-MB (CK-2) C-Reactive Protein Total Protein Albumin Troponin T HDL Cholesterol Arterial Blood Glucose Urine WBC (Auto) Urine Creatinine Urine Total Protein Phenytoin Coronavirus (PCR) Crossmatch 06/26/20 06/26/20 06/26/20 18:30 18:30 18:30 WBC RBC 2.87 L Hgb 8.2 L Hct 25.9 L MCHC RDW 17.8 H Lymph % (Auto) [place] % (Auto) Eos % (Auto) Lymph # [place] # Lymph # (Auto) [place] # (Auto) Eos # (Auto) Seg Neutrophils % Seg Neuts % (Manual) 83.0 H Lymphocytes % (Manual) 8.0 L Seg Neutrophils # Seg Neutrophils # Man Lymphocytes # (Manual) 0.6 L Monocytes % (Manual) Eosinophils % (Manual) Monocytes # (Manual) Eosinophils # (Manual) D-Dimer Heparin Anti-Xa Level ABG pH POC ABG pCO2 POC ABG pO2 ABG pO2 ABG HCO3 ABG O2 Saturation ABG Base Excess ABG Hemoglobin ABG Oxyhemoglobin VBG pH ABG Sodium ABG Potassium ABG Glucose Oxyhemoglobin Sodium Potassium Chloride Carbon Dioxide BUN 80 H Creatinine 2.1 H Glucose 260 H POC Glucose Lactic Acid 4.30 H* Calcium 8.3 L Ferritin AST Alkaline Phosphatase Magnesium Lactate Dehydrogenase Total Creatine Kinase CK-MB (CK-2) C-Reactive Protein Total Protein Albumin Troponin T HDL Cholesterol Arterial Blood Glucose Urine WBC (Auto) Urine Creatinine Urine Total Protein Phenytoin Coronavirus (PCR) Crossmatch 06/26/20 06/27/20 06/27/20 18:50 01:00 04:29 WBC RBC Hgb Hct MCHC RDW Lymph % (Auto) [place] % (Auto) Eos % (Auto) Lymph # [place] # Lymph # (Auto) [place] # (Auto) Eos # (Auto) Seg Neutrophils % Seg Neuts % (Manual) Lymphocytes % (Manual) Seg Neutrophils # Seg Neutrophils # Man Lymphocytes # (Manual) Monocytes % (Manual) Eosinophils % (Manual) Monocytes # (Manual) Eosinophils # (Manual) D-Dimer Heparin Anti-Xa Level ABG pH 7.296 L POC ABG pCO2 POC ABG pO2 ABG pO2 116.5 H 200.5 H ABG HCO3 28.4 H ABG O2 Saturation 99.3 H ABG Base Excess 3.7 H ABG Hemoglobin 5.6 L ABG Oxyhemoglobin VBG pH ABG Sodium ABG Potassium ABG Glucose Oxyhemoglobin Sodium Potassium Chloride Carbon Dioxide BUN Creatinine Glucose POC Glucose 123 H Lactic Acid Calcium Ferritin AST Alkaline Phosphatase Magnesium Lactate Dehydrogenase Total Creatine Kinase CK-MB (CK-2) C-Reactive Protein Total Protein Albumin Troponin T HDL Cholesterol Arterial Blood Glucose Urine WBC (Auto) Urine Creatinine Urine Total Protein Phenytoin Coronavirus (PCR) Crossmatch 06/27/20 06/27/20 06/27/20 05:00 05:00 05:00 WBC RBC 2.75 L Hgb 7.9 L Hct 24.3 L MCHC RDW 17.1 H Lymph % (Auto) 8.5 L [place] % (Auto) 12.6 H Eos % (Auto) Lymph # 0.7 L [place] # 1.0 H Lymph # (Auto) [place] # (Auto) Eos # (Auto) Seg Neutrophils % 77.5 H Seg Neuts % (Manual) Lymphocytes % (Manual) Seg Neutrophils # Seg Neutrophils # Man Lymphocytes # (Manual) Monocytes % (Manual) Eosinophils % (Manual) Monocytes # (Manual) Eosinophils # (Manual) D-Dimer Heparin Anti-Xa Level ABG pH POC ABG pCO2 POC ABG pO2 ABG pO2 ABG HCO3 ABG O2 Saturation ABG Base Excess ABG Hemoglobin ABG Oxyhemoglobin VBG pH ABG Sodium ABG Potassium ABG Glucose Oxyhemoglobin Sodium Potassium Chloride Carbon Dioxide BUN 80 H Creatinine 2.0 H Glucose 129 H POC Glucose Lactic Acid 0.60 L Calcium 7.9 L Ferritin AST Alkaline Phosphatase Magnesium Lactate Dehydrogenase Total Creatine Kinase CK-MB (CK-2) C-Reactive Protein Total Protein Albumin Troponin T HDL Cholesterol Arterial Blood Glucose Urine WBC (Auto) Urine Creatinine Urine Total Protein Phenytoin Coronavirus (PCR) Crossmatch 06/27/20 06/27/20 06/27/20 05:23 13:46 17:25 WBC RBC Hgb Hct MCHC RDW Lymph % (Auto) [place] % (Auto) Eos % (Auto) Lymph # [place] # Lymph # (Auto) [place] # (Auto) Eos # (Auto) Seg Neutrophils % Seg Neuts % (Manual) Lymphocytes % (Manual) Seg Neutrophils # Seg Neutrophils # Man Lymphocytes # (Manual) Monocytes % (Manual) Eosinophils % (Manual) Monocytes # (Manual) Eosinophils # (Manual) D-Dimer Heparin Anti-Xa Level ABG pH POC ABG pCO2 POC ABG pO2 ABG pO2 ABG HCO3 ABG O2 Saturation ABG Base Excess ABG Hemoglobin ABG Oxyhemoglobin VBG pH ABG Sodium ABG Potassium ABG Glucose Oxyhemoglobin Sodium Potassium Chloride Carbon Dioxide BUN Creatinine Glucose POC Glucose 109 H 158 H 162 H Lactic Acid Calcium Ferritin AST Alkaline Phosphatase Magnesium Lactate Dehydrogenase Total Creatine Kinase CK-MB (CK-2) C-Reactive Protein Total Protein Albumin Troponin T HDL Cholesterol Arterial Blood Glucose Urine WBC (Auto) Urine Creatinine Urine Total Protein Phenytoin Coronavirus (PCR) Crossmatch 06/27/20 06/27/20 06/28/20 18:43 23:46 04:05 WBC RBC Hgb 7.7 L Hct 22.1 L MCHC RDW Lymph % (Auto) [place] % (Auto) Eos % (Auto) Lymph # [place] # Lymph # (Auto) [place] # (Auto) Eos # (Auto) Seg Neutrophils % Seg Neuts % (Manual) Lymphocytes % (Manual) Seg Neutrophils # Seg Neutrophils # Man Lymphocytes # (Manual) Monocytes % (Manual) Eosinophils % (Manual) Monocytes # (Manual) Eosinophils # (Manual) D-Dimer Heparin Anti-Xa Level ABG pH POC ABG pCO2 POC ABG pO2 ABG pO2 102.7 H ABG HCO3 28.7 H ABG O2 Saturation ABG Base Excess 3.7 H ABG Hemoglobin ABG Oxyhemoglobin VBG pH ABG Sodium ABG Potassium ABG Glucose Oxyhemoglobin Sodium Potassium Chloride Carbon Dioxide BUN Creatinine Glucose POC Glucose 142 H Lactic Acid Calcium Ferritin AST Alkaline Phosphatase Magnesium Lactate Dehydrogenase Total Creatine Kinase CK-MB (CK-2) C-Reactive Protein Total Protein Albumin Troponin T HDL Cholesterol Arterial Blood Glucose Urine WBC (Auto) Urine Creatinine Urine Total Protein Phenytoin Coronavirus (PCR) Crossmatch 06/28/20 06/28/20 06/28/20 09:47 09:47 12:02 WBC RBC 2.53 L Hgb 7.4 L Hct 22.2 L MCHC RDW 16.8 H Lymph % (Auto) [place] % (Auto) 13.5 H Eos % (Auto) Lymph # 1.1 L [place] # 1.0 H Lymph # (Auto) [place] # (Auto) Eos # (Auto) Seg Neutrophils % Seg Neuts % (Manual) Lymphocytes % (Manual) Seg Neutrophils # Seg Neutrophils # Man Lymphocytes # (Manual) Monocytes % (Manual) Eosinophils % (Manual) Monocytes # (Manual) Eosinophils # (Manual) D-Dimer Heparin Anti-Xa Level ABG pH POC ABG pCO2 POC ABG pO2 ABG pO2 ABG HCO3 ABG O2 Saturation ABG Base Excess ABG Hemoglobin ABG Oxyhemoglobin VBG pH ABG Sodium ABG Potassium ABG Glucose Oxyhemoglobin Sodium Potassium Chloride Carbon Dioxide BUN 80 H Creatinine 1.5 H Glucose 139 H POC Glucose 169 H Lactic Acid Calcium 7.9 L Ferritin AST Alkaline Phosphatase Magnesium Lactate Dehydrogenase Total Creatine Kinase CK-MB (CK-2) C-Reactive Protein Total Protein 5.0 L Albumin 2.1 L Troponin T HDL Cholesterol Arterial Blood Glucose Urine WBC (Auto) Urine Creatinine Urine Total Protein Phenytoin Coronavirus (PCR) Crossmatch 06/28/20 06/28/20 06/28/20 12:30 12:30 17:24 WBC RBC 2.38 L Hgb 7.3 L Hct 20.9 L MCHC 35 H RDW 16.7 H Lymph % (Auto) [place] % (Auto) Eos % (Auto) Lymph # [place] # Lymph # (Auto) [place] # (Auto) Eos # (Auto) Seg Neutrophils % Seg Neuts % (Manual) Lymphocytes % (Manual) Seg Neutrophils # Seg Neutrophils # Man Lymphocytes # (Manual) Monocytes % (Manual) Eosinophils % (Manual) Monocytes # (Manual) Eosinophils # (Manual) D-Dimer Heparin Anti-Xa Level ABG pH POC ABG pCO2 POC ABG pO2 ABG pO2 ABG HCO3 ABG O2 Saturation ABG Base Excess ABG Hemoglobin ABG Oxyhemoglobin VBG pH ABG Sodium ABG Potassium ABG Glucose Oxyhemoglobin Sodium Potassium Chloride Carbon Dioxide BUN 74 H Creatinine 1.5 H Glucose 143 H POC Glucose 173 H Lactic Acid Calcium 7.5 L Ferritin AST Alkaline Phosphatase Magnesium Lactate Dehydrogenase Total Creatine Kinase CK-MB (CK-2) C-Reactive Protein Total Protein Albumin Troponin T HDL Cholesterol Arterial Blood Glucose Urine WBC (Auto) Urine Creatinine Urine Total Protein Phenytoin Coronavirus (PCR) Crossmatch 06/29/20 06/29/20 06/29/20 00:02 03:54 04:38 WBC RBC 2.55 L Hgb 7.3 L Hct 22.4 L MCHC RDW 16.4 H Lymph % (Auto) 13.3 L [place] % (Auto) 12.5 H Eos % (Auto) Lymph # 1.1 L [place] # 1.0 H Lymph # (Auto) [place] # (Auto) Eos # (Auto) Seg Neutrophils % Seg Neuts % (Manual) Lymphocytes % (Manual) Seg Neutrophils # Seg Neutrophils # Man Lymphocytes # (Manual) Monocytes % (Manual) Eosinophils % (Manual) Monocytes # (Manual) Eosinophils # (Manual) D-Dimer Heparin Anti-Xa Level ABG pH POC ABG pCO2 POC ABG pO2 ABG pO2 ABG HCO3 26.9 H ABG O2 Saturation ABG Base Excess ABG Hemoglobin 6.9 L ABG Oxyhemoglobin VBG pH ABG Sodium ABG Potassium ABG Glucose Oxyhemoglobin Sodium Potassium Chloride Carbon Dioxide BUN Creatinine Glucose POC Glucose 142 H Lactic Acid Calcium Ferritin AST Alkaline Phosphatase Magnesium Lactate Dehydrogenase Total Creatine Kinase CK-MB (CK-2) C-Reactive Protein Total Protein Albumin Troponin T HDL Cholesterol Arterial Blood Glucose Urine WBC (Auto) Urine Creatinine Urine Total Protein Phenytoin Coronavirus (PCR) Crossmatch 06/29/20 06/29/20 06/29/20 04:38 05:38 12:25 WBC RBC Hgb Hct MCHC RDW Lymph % (Auto) [place] % (Auto) Eos % (Auto) Lymph # [place] # Lymph # (Auto) [place] # (Auto) Eos # (Auto) Seg Neutrophils % Seg Neuts % (Manual) Lymphocytes % (Manual) Seg Neutrophils # Seg Neutrophils # Man Lymphocytes # (Manual) Monocytes % (Manual) Eosinophils % (Manual) Monocytes # (Manual) Eosinophils # (Manual) D-Dimer Heparin Anti-Xa Level ABG pH POC ABG pCO2 POC ABG pO2 ABG pO2 ABG HCO3 ABG O2 Saturation ABG Base Excess ABG Hemoglobin ABG Oxyhemoglobin VBG pH ABG Sodium ABG Potassium ABG Glucose Oxyhemoglobin Sodium Potassium Chloride 107.8 H Carbon Dioxide BUN 72 H Creatinine 1.4 H Glucose 127 H POC Glucose 122 H 138 H Lactic Acid Calcium 7.4 L Ferritin AST Alkaline Phosphatase Magnesium Lactate Dehydrogenase Total Creatine Kinase CK-MB (CK-2) C-Reactive Protein Total Protein Albumin Troponin T HDL Cholesterol Arterial Blood Glucose Urine WBC (Auto) Urine Creatinine Urine Total Protein Phenytoin Coronavirus (PCR) Crossmatch 06/29/20 06/29/20 06/29/20 14:45 14:45 14:45 WBC RBC Hgb Hct MCHC RDW Lymph % (Auto) [place] % (Auto) Eos % (Auto) Lymph # [place] # Lymph # (Auto) [place] # (Auto) Eos # (Auto) Seg Neutrophils % Seg Neuts % (Manual) Lymphocytes % (Manual) Seg Neutrophils # Seg Neutrophils # Man Lymphocytes # (Manual) Monocytes % (Manual) Eosinophils % (Manual) Monocytes # (Manual) Eosinophils # (Manual) D-Dimer 2310.15 H Heparin Anti-Xa Level ABG pH POC ABG pCO2 POC ABG pO2 ABG pO2 ABG HCO3 ABG O2 Saturation ABG Base Excess ABG Hemoglobin ABG Oxyhemoglobin VBG pH ABG Sodium ABG Potassium ABG Glucose Oxyhemoglobin Sodium Potassium Chloride Carbon Dioxide BUN Creatinine Glucose POC Glucose Lactic Acid Calcium Ferritin 223.6 H AST Alkaline Phosphatase Magnesium Lactate Dehydrogenase 367 H Total Creatine Kinase CK-MB (CK-2) C-Reactive Protein 3.60 H Total Protein Albumin Troponin T HDL Cholesterol Arterial Blood Glucose Urine WBC (Auto) Urine Creatinine Urine Total Protein Phenytoin Coronavirus (PCR) Crossmatch 09/21/20 09/21/20 09/21/20 18:27 23:35 Unknown WBC RBC Hgb Hct MCHC RDW Lymph % (Auto) [place] % (Auto) Eos % (Auto) Lymph # [place] # Lymph # (Auto) [place] # (Auto) Eos # (Auto) Seg Neutrophils % Seg Neuts % (Manual) Lymphocytes % (Manual) Seg Neutrophils # Seg Neutrophils # Man Lymphocytes # (Manual) Monocytes % (Manual) Eosinophils % (Manual) Monocytes # (Manual) Eosinophils # (Manual) D-Dimer Heparin Anti-Xa Level ABG pH POC ABG pCO2 POC ABG pO2 ABG pO2 ABG HCO3 ABG O2 Saturation ABG Base Excess ABG Hemoglobin ABG Oxyhemoglobin VBG pH ABG Sodium ABG Potassium ABG Glucose Oxyhemoglobin Sodium Potassium Chloride Carbon Dioxide BUN Creatinine Glucose POC Glucose 112 H 140 H Lactic Acid Calcium Ferritin AST Alkaline Phosphatase Magnesium Lactate Dehydrogenase Total Creatine Kinase CK-MB (CK-2) C-Reactive Protein Total Protein Albumin Troponin T HDL Cholesterol Arterial Blood Glucose Urine WBC (Auto) Urine Creatinine Urine Total Protein Phenytoin Coronavirus (PCR) Positive A Crossmatch 06/30/20 06/30/20 06/30/20 04:10 04:10 06:09 WBC RBC 2.44 L Hgb 7.1 L Hct 21.5 L MCHC RDW 16.6 H Lymph % (Auto) 11.0 L [place] % (Auto) 10.8 H Eos % (Auto) Lymph # 0.9 L [place] # 0.9 H Lymph # (Auto) [place] # (Auto) Eos # (Auto) Seg Neutrophils % 73.7 H Seg Neuts % (Manual) Lymphocytes % (Manual) Seg Neutrophils # Seg Neutrophils # Man Lymphocytes # (Manual) Monocytes % (Manual) Eosinophils % (Manual) Monocytes # (Manual) Eosinophils # (Manual) D-Dimer Heparin Anti-Xa Level ABG pH POC ABG pCO2 POC ABG pO2 ABG pO2 ABG HCO3 ABG O2 Saturation ABG Base Excess ABG Hemoglobin ABG Oxyhemoglobin VBG pH ABG Sodium ABG Potassium ABG Glucose Oxyhemoglobin Sodium Potassium Chloride 109.1 H Carbon Dioxide BUN 74 H Creatinine 1.3 H Glucose 191 H POC Glucose 187 H Lactic Acid Calcium 7.8 L Ferritin AST Alkaline Phosphatase Magnesium Lactate Dehydrogenase Total Creatine Kinase CK-MB (CK-2) C-Reactive Protein Total Protein Albumin Troponin T HDL Cholesterol Arterial Blood Glucose Urine WBC (Auto) Urine Creatinine Urine Total Protein Phenytoin Coronavirus (PCR) Crossmatch 06/30/20 06/30/20 06/30/20 12:04 17:43 23:41 WBC RBC Hgb Hct MCHC RDW Lymph % (Auto) [place] % (Auto) Eos % (Auto) Lymph # [place] # Lymph # (Auto) [place] # (Auto) Eos # (Auto) Seg Neutrophils % Seg Neuts % (Manual) Lymphocytes % (Manual) Seg Neutrophils # Seg Neutrophils # Man Lymphocytes # (Manual) Monocytes % (Manual) Eosinophils % (Manual) Monocytes # (Manual) Eosinophils # (Manual) D-Dimer Heparin Anti-Xa Level ABG pH POC ABG pCO2 POC ABG pO2 ABG pO2 ABG HCO3 ABG O2 Saturation ABG Base Excess ABG Hemoglobin ABG Oxyhemoglobin VBG pH ABG Sodium ABG Potassium ABG Glucose Oxyhemoglobin Sodium Potassium Chloride Carbon Dioxide BUN Creatinine Glucose POC Glucose 112 H 177 H 143 H Lactic Acid Calcium Ferritin AST Alkaline Phosphatase Magnesium Lactate Dehydrogenase Total Creatine Kinase CK-MB (CK-2) C-Reactive Protein Total Protein Albumin Troponin T HDL Cholesterol Arterial Blood Glucose Urine WBC (Auto) Urine Creatinine Urine Total Protein Phenytoin Coronavirus (PCR) Crossmatch 07/01/20 07/01/20 07/01/20 05:02 05:52 06:01 WBC 12.6 H RBC 2.95 L Hgb 8.2 L Hct 26.0 L MCHC RDW 16.9 H Lymph % (Auto) [place] % (Auto) Eos % (Auto) Lymph # [place] # Lymph # (Auto) [place] # (Auto) Eos # (Auto) Seg Neutrophils % Seg Neuts % (Manual) Lymphocytes % (Manual) Seg Neutrophils # Seg Neutrophils # Man 8.6 H Lymphocytes # (Manual) Monocytes % (Manual) Eosinophils % (Manual) 5.0 H Monocytes # (Manual) Eosinophils # (Manual) 0.6 H D-Dimer Heparin Anti-Xa Level ABG pH POC ABG pCO2 POC ABG pO2 ABG pO2 ABG HCO3 ABG O2 Saturation ABG Base Excess ABG Hemoglobin 8.2 L ABG Oxyhemoglobin VBG pH ABG Sodium ABG Potassium ABG Glucose Oxyhemoglobin Sodium Potassium Chloride Carbon Dioxide BUN Creatinine Glucose POC Glucose 129 H Lactic Acid Calcium Ferritin AST Alkaline Phosphatase Magnesium Lactate Dehydrogenase Total Creatine Kinase CK-MB (CK-2) C-Reactive Protein Total Protein Albumin Troponin T HDL Cholesterol Arterial Blood Glucose Urine WBC (Auto) Urine Creatinine Urine Total Protein Phenytoin Coronavirus (PCR) Crossmatch 07/01/20 07/01/20 07/01/20 06:01 06:01 06:08 WBC RBC Hgb Hct MCHC RDW Lymph % (Auto) [place] % (Auto) Eos % (Auto) Lymph # [place] # Lymph # (Auto) [place] # (Auto) Eos # (Auto) Seg Neutrophils % Seg Neuts % (Manual) Lymphocytes % (Manual) Seg Neutrophils # Seg Neutrophils # Man Lymphocytes # (Manual) Monocytes % (Manual) Eosinophils % (Manual) Monocytes # (Manual) Eosinophils # (Manual) D-Dimer Heparin Anti-Xa Level ABG pH POC ABG pCO2 POC ABG pO2 ABG pO2 ABG HCO3 ABG O2 Saturation ABG Base Excess ABG Hemoglobin ABG Oxyhemoglobin VBG pH ABG Sodium ABG Potassium ABG Glucose Oxyhemoglobin Sodium 147 H Potassium Chloride 108.0 H Carbon Dioxide BUN 71 H Creatinine 1.3 H Glucose 193 H POC Glucose 192 H Lactic Acid Calcium 8.1 L Ferritin AST Alkaline Phosphatase Magnesium Lactate Dehydrogenase Total Creatine Kinase 300 H CK-MB (CK-2) C-Reactive Protein Total Protein Albumin Troponin T 0.067 H HDL Cholesterol 61 H Arterial Blood Glucose Urine WBC (Auto) Urine Creatinine Urine Total Protein Phenytoin Coronavirus (PCR) Crossmatch 07/01/20 07/01/20 07/02/20 12:23 17:40 00:18 WBC RBC Hgb Hct MCHC RDW Lymph % (Auto) [place] % (Auto) Eos % (Auto) Lymph # [place] # Lymph # (Auto) [place] # (Auto) Eos # (Auto) Seg Neutrophils % Seg Neuts % (Manual) Lymphocytes % (Manual) Seg Neutrophils # Seg Neutrophils # Man Lymphocytes # (Manual) Monocytes % (Manual) Eosinophils % (Manual) Monocytes # (Manual) Eosinophils # (Manual) D-Dimer Heparin Anti-Xa Level ABG pH POC ABG pCO2 POC ABG pO2 ABG pO2 ABG HCO3 ABG O2 Saturation ABG Base Excess ABG Hemoglobin ABG Oxyhemoglobin VBG pH ABG Sodium ABG Potassium ABG Glucose Oxyhemoglobin Sodium Potassium Chloride Carbon Dioxide BUN Creatinine Glucose POC Glucose 111 H 135 H 145 H Lactic Acid Calcium Ferritin AST Alkaline Phosphatase Magnesium Lactate Dehydrogenase Total Creatine Kinase CK-MB (CK-2) C-Reactive Protein Total Protein Albumin Troponin T HDL Cholesterol Arterial Blood Glucose Urine WBC (Auto) Urine Creatinine Urine Total Protein Phenytoin Coronavirus (PCR) Crossmatch 07/02/20 07/02/20 07/02/20 04:11 04:23 05:54 WBC RBC Hgb Hct MCHC RDW Lymph % (Auto) [place] % (Auto) Eos % (Auto) Lymph # [place] # Lymph # (Auto) [place] # (Auto) Eos # (Auto) Seg Neutrophils % Seg Neuts % (Manual) Lymphocytes % (Manual) Seg Neutrophils # Seg Neutrophils # Man Lymphocytes # (Manual) Monocytes % (Manual) Eosinophils % (Manual) Monocytes # (Manual) Eosinophils # (Manual) D-Dimer Heparin Anti-Xa Level ABG pH POC ABG pCO2 POC ABG pO2 ABG pO2 ABG HCO3 ABG O2 Saturation ABG Base Excess ABG Hemoglobin 5.4 L ABG Oxyhemoglobin VBG pH ABG Sodium ABG Potassium ABG Glucose Oxyhemoglobin Sodium Potassium Chloride 108.6 H Carbon Dioxide BUN 72 H Creatinine Glucose 112 H POC Glucose 137 H Lactic Acid Calcium 7.8 L Ferritin AST Alkaline Phosphatase Magnesium Lactate Dehydrogenase Total Creatine Kinase CK-MB (CK-2) C-Reactive Protein Total Protein Albumin Troponin T HDL Cholesterol Arterial Blood Glucose Urine WBC (Auto) Urine Creatinine Urine Total Protein Phenytoin Coronavirus (PCR) Crossmatch 07/02/20 07/02/20 07/02/20 11:38 18:04 23:59 WBC RBC Hgb Hct MCHC RDW Lymph % (Auto) [place] % (Auto) Eos % (Auto) Lymph # [place] # Lymph # (Auto) [place] # (Auto) Eos # (Auto) Seg Neutrophils % Seg Neuts % (Manual) Lymphocytes % (Manual) Seg Neutrophils # Seg Neutrophils # Man Lymphocytes # (Manual) Monocytes % (Manual) Eosinophils % (Manual) Monocytes # (Manual) Eosinophils # (Manual) D-Dimer Heparin Anti-Xa Level ABG pH POC ABG pCO2 POC ABG pO2 ABG pO2 ABG HCO3 ABG O2 Saturation ABG Base Excess ABG Hemoglobin ABG Oxyhemoglobin VBG pH ABG Sodium ABG Potassium ABG Glucose Oxyhemoglobin Sodium Potassium Chloride Carbon Dioxide BUN Creatinine Glucose POC Glucose 128 H 135 H 156 H Lactic Acid Calcium Ferritin AST Alkaline Phosphatase Magnesium Lactate Dehydrogenase Total Creatine Kinase CK-MB (CK-2) C-Reactive Protein Total Protein Albumin Troponin T HDL Cholesterol Arterial Blood Glucose Urine WBC (Auto) Urine Creatinine Urine Total Protein Phenytoin Coronavirus (PCR) Crossmatch 07/03/20 07/03/20 07/03/20 03:49 06:00 11:31 WBC RBC Hgb Hct MCHC RDW Lymph % (Auto) [place] % (Auto) Eos % (Auto) Lymph # [place] # Lymph # (Auto) [place] # (Auto) Eos # (Auto) Seg Neutrophils % Seg Neuts % (Manual) Lymphocytes % (Manual) Seg Neutrophils # Seg Neutrophils # Man Lymphocytes # (Manual) Monocytes % (Manual) Eosinophils % (Manual) Monocytes # (Manual) Eosinophils # (Manual) D-Dimer Heparin Anti-Xa Level ABG pH POC ABG pCO2 POC ABG pO2 ABG pO2 121.0 H ABG HCO3 ABG O2 Saturation ABG Base Excess ABG Hemoglobin 8.5 L ABG Oxyhemoglobin VBG pH ABG Sodium ABG Potassium ABG Glucose Oxyhemoglobin Sodium Potassium Chloride Carbon Dioxide BUN Creatinine Glucose POC Glucose 135 H 141 H Lactic Acid Calcium Ferritin AST Alkaline Phosphatase Magnesium Lactate Dehydrogenase Total Creatine Kinase CK-MB (CK-2) C-Reactive Protein Total Protein Albumin Troponin T HDL Cholesterol Arterial Blood Glucose Urine WBC (Auto) Urine Creatinine Urine Total Protein Phenytoin Coronavirus (PCR) Crossmatch 07/03/20 07/03/20 07/03/20 16:00 16:07 17:40 WBC RBC Hgb Hct MCHC RDW Lymph % (Auto) [place] % (Auto) Eos % (Auto) Lymph # [place] # Lymph # (Auto) [place] # (Auto) Eos # (Auto) Seg Neutrophils % Seg Neuts % (Manual) Lymphocytes % (Manual) Seg Neutrophils # Seg Neutrophils # Man Lymphocytes # (Manual) Monocytes % (Manual) Eosinophils % (Manual) Monocytes # (Manual) Eosinophils # (Manual) D-Dimer Heparin Anti-Xa Level ABG pH 7.271 L POC ABG pCO2 POC ABG pO2 ABG pO2 126.9 H ABG HCO3 ABG O2 Saturation ABG Base Excess ABG Hemoglobin 8.2 L 8.1 L ABG Oxyhemoglobin VBG pH ABG Sodium 130.3 L ABG Potassium 4.9 H ABG Glucose 163 H Oxyhemoglobin Sodium Potassium Chloride Carbon Dioxide BUN Creatinine Glucose POC Glucose 120 H Lactic Acid Calcium Ferritin AST Alkaline Phosphatase Magnesium Lactate Dehydrogenase Total Creatine Kinase CK-MB (CK-2) C-Reactive Protein Total Protein Albumin Troponin T HDL Cholesterol Arterial Blood Glucose 163 H Urine WBC (Auto) Urine Creatinine Urine Total Protein Phenytoin Coronavirus (PCR) Crossmatch 07/04/20 07/04/20 07/04/20 05:49 11:54 18:00 WBC RBC Hgb Hct MCHC RDW Lymph % (Auto) [place] % (Auto) Eos % (Auto) Lymph # [place] # Lymph # (Auto) [place] # (Auto) Eos # (Auto) Seg Neutrophils % Seg Neuts % (Manual) Lymphocytes % (Manual) Seg Neutrophils # Seg Neutrophils # Man Lymphocytes # (Manual) Monocytes % (Manual) Eosinophils % (Manual) Monocytes # (Manual) Eosinophils # (Manual) D-Dimer Heparin Anti-Xa Level ABG pH POC ABG pCO2 POC ABG pO2 ABG pO2 ABG HCO3 ABG O2 Saturation ABG Base Excess ABG Hemoglobin ABG Oxyhemoglobin VBG pH ABG Sodium ABG Potassium ABG Glucose Oxyhemoglobin Sodium Potassium Chloride Carbon Dioxide BUN Creatinine Glucose POC Glucose 128 H 168 H 133 H Lactic Acid Calcium Ferritin AST Alkaline Phosphatase Magnesium Lactate Dehydrogenase Total Creatine Kinase CK-MB (CK-2) C-Reactive Protein Total Protein Albumin Troponin T HDL Cholesterol Arterial Blood Glucose Urine WBC (Auto) Urine Creatinine Urine Total Protein Phenytoin Coronavirus (PCR) Crossmatch 07/05/20 07/05/20 07/05/20 00:07 01:12 02:30 WBC RBC 2.35 L Hgb 6.9 L Hct 21.1 L MCHC RDW 16.8 H Lymph % (Auto) [place] % (Auto) Eos % (Auto) Lymph # [place] # Lymph # (Auto) [place] # (Auto) Eos # (Auto) Seg Neutrophils % Seg Neuts % (Manual) 74.0 H Lymphocytes % (Manual) 12.0 L Seg Neutrophils # Seg Neutrophils # Man 8.0 H Lymphocytes # (Manual) Monocytes % (Manual) 9.0 H Eosinophils % (Manual) Monocytes # (Manual) 1.0 H Eosinophils # (Manual) D-Dimer Heparin Anti-Xa Level ABG pH POC ABG pCO2 POC ABG pO2 ABG pO2 ABG HCO3 ABG O2 Saturation ABG Base Excess ABG Hemoglobin ABG Oxyhemoglobin VBG pH ABG Sodium ABG Potassium ABG Glucose Oxyhemoglobin Sodium Potassium Chloride Carbon Dioxide BUN Creatinine Glucose POC Glucose 121 H Lactic Acid Calcium Ferritin AST Alkaline Phosphatase Magnesium Lactate Dehydrogenase Total Creatine Kinase CK-MB (CK-2) C-Reactive Protein Total Protein Albumin Troponin T HDL Cholesterol Arterial Blood Glucose Urine WBC (Auto) Urine Creatinine Urine Total Protein Phenytoin Coronavirus (PCR) Crossmatch See Detail 07/05/20 07/05/20 07/05/20 12:09 13:05 18:04 WBC RBC Hgb Hct MCHC RDW Lymph % (Auto) [place] % (Auto) Eos % (Auto) Lymph # [place] # Lymph # (Auto) [place] # (Auto) Eos # (Auto) Seg Neutrophils % Seg Neuts % (Manual) Lymphocytes % (Manual) Seg Neutrophils # Seg Neutrophils # Man Lymphocytes # (Manual) Monocytes % (Manual) Eosinophils % (Manual) Monocytes # (Manual) Eosinophils # (Manual) D-Dimer Heparin Anti-Xa Level ABG pH 7.32 L POC ABG pCO2 POC ABG pO2 ABG pO2 78.3 L ABG HCO3 ABG O2 Saturation ABG Base Excess -2.6 L ABG Hemoglobin 7.3 L ABG Oxyhemoglobin VBG pH ABG Sodium ABG Potassium ABG Glucose Oxyhemoglobin Sodium Potassium Chloride Carbon Dioxide BUN Creatinine Glucose POC Glucose 132 H 160 H Lactic Acid Calcium Ferritin AST Alkaline Phosphatase Magnesium Lactate Dehydrogenase Total Creatine Kinase CK-MB (CK-2) C-Reactive Protein Total Protein Albumin Troponin T HDL Cholesterol Arterial Blood Glucose Urine WBC (Auto) Urine Creatinine Urine Total Protein Phenytoin Coronavirus (PCR) Crossmatch 07/05/20 07/05/20 07/05/20 23:13 23:13 23:43 WBC RBC 2.57 L Hgb 7.7 L Hct 23.0 L MCHC RDW 16.9 H Lymph % (Auto) [place] % (Auto) Eos % (Auto) Lymph # [place] # Lymph # (Auto) [place] # (Auto) Eos # (Auto) Seg Neutrophils % Seg Neuts % (Manual) Lymphocytes % (Manual) Seg Neutrophils # Seg Neutrophils # Man Lymphocytes # (Manual) Monocytes % (Manual) Eosinophils % (Manual) Monocytes # (Manual) Eosinophils # (Manual) D-Dimer Heparin Anti-Xa Level ABG pH POC ABG pCO2 POC ABG pO2 ABG pO2 ABG HCO3 ABG O2 Saturation ABG Base Excess ABG Hemoglobin ABG Oxyhemoglobin VBG pH ABG Sodium ABG Potassium ABG Glucose Oxyhemoglobin Sodium Potassium Chloride Carbon Dioxide 20 L BUN 80 H Creatinine 2.4 H D Glucose 124 H POC Glucose 121 H Lactic Acid Calcium 7.6 L Ferritin AST Alkaline Phosphatase Magnesium Lactate Dehydrogenase Total Creatine Kinase CK-MB (CK-2) C-Reactive Protein Total Protein Albumin Troponin T HDL Cholesterol Arterial Blood Glucose Urine WBC (Auto) Urine Creatinine Urine Total Protein Phenytoin Coronavirus (PCR) Crossmatch 07/06/20 07/06/20 07/06/20 13:20 14:48 17:28 WBC RBC Hgb Hct MCHC RDW Lymph % (Auto) [place] % (Auto) Eos % (Auto) Lymph # [place] # Lymph # (Auto) [place] # (Auto) Eos # (Auto) Seg Neutrophils % Seg Neuts % (Manual) Lymphocytes % (Manual) Seg Neutrophils # Seg Neutrophils # Man Lymphocytes # (Manual) Monocytes % (Manual) Eosinophils % (Manual) Monocytes # (Manual) Eosinophils # (Manual) D-Dimer Heparin Anti-Xa Level ABG pH POC ABG pCO2 POC ABG pO2 ABG pO2 ABG HCO3 ABG O2 Saturation ABG Base Excess ABG Hemoglobin ABG Oxyhemoglobin VBG pH ABG Sodium ABG Potassium ABG Glucose Oxyhemoglobin Sodium 136 L Potassium 5.5 H Chloride Carbon Dioxide 19 L BUN 82 H Creatinine 2.5 H Glucose 113 H POC Glucose 133 H Lactic Acid Calcium 7.7 L Ferritin AST Alkaline Phosphatase Magnesium Lactate Dehydrogenase Total Creatine Kinase CK-MB (CK-2) C-Reactive Protein Total Protein Albumin Troponin T HDL Cholesterol Arterial Blood Glucose Urine WBC (Auto) Urine Creatinine 33.3 H Urine Total Protein Phenytoin Coronavirus (PCR) Crossmatch 07/07/20 07/07/20 07/07/20 00:12 04:15 04:15 WBC RBC 2.28 L Hgb 6.8 L Hct 20.7 L MCHC RDW 16.8 H Lymph % (Auto) [place] % (Auto) Eos % (Auto) Lymph # [place] # Lymph # (Auto) [place] # (Auto) Eos # (Auto) Seg Neutrophils % Seg Neuts % (Manual) Lymphocytes % (Manual) 13.0 L Seg Neutrophils # Seg Neutrophils # Man Lymphocytes # (Manual) 1.0 L Monocytes % (Manual) 11.0 H Eosinophils % (Manual) Monocytes # (Manual) 0.9 H Eosinophils # (Manual) D-Dimer Heparin Anti-Xa Level ABG pH POC ABG pCO2 POC ABG pO2 ABG pO2 ABG HCO3 ABG O2 Saturation ABG Base Excess ABG Hemoglobin ABG Oxyhemoglobin VBG pH ABG Sodium ABG Potassium ABG Glucose Oxyhemoglobin Sodium Potassium Chloride Carbon Dioxide BUN Creatinine Glucose POC Glucose 154 H Lactic Acid Calcium Ferritin AST Alkaline Phosphatase Magnesium 2.50 H Lactate Dehydrogenase Total Creatine Kinase CK-MB (CK-2) C-Reactive Protein Total Protein Albumin Troponin T HDL Cholesterol Arterial Blood Glucose Urine WBC (Auto) Urine Creatinine Urine Total Protein Phenytoin Coronavirus (PCR) Crossmatch 07/07/20 07/07/20 07/07/20 05:31 12:31 13:22 WBC RBC Hgb Hct MCHC RDW Lymph % (Auto) [place] % (Auto) Eos % (Auto) Lymph # [place] # Lymph # (Auto) [place] # (Auto) Eos # (Auto) Seg Neutrophils % Seg Neuts % (Manual) Lymphocytes % (Manual) Seg Neutrophils # Seg Neutrophils # Man Lymphocytes # (Manual) Monocytes % (Manual) Eosinophils % (Manual) Monocytes # (Manual) Eosinophils # (Manual) D-Dimer Heparin Anti-Xa Level ABG pH POC ABG pCO2 POC ABG pO2 ABG pO2 ABG HCO3 ABG O2 Saturation ABG Base Excess ABG Hemoglobin ABG Oxyhemoglobin VBG pH ABG Sodium ABG Potassium ABG Glucose Oxyhemoglobin Sodium Potassium 5.6 H Chloride Carbon Dioxide BUN 86 H Creatinine 2.9 H Glucose 127 H POC Glucose 135 H 131 H Lactic Acid Calcium 8.1 L Ferritin AST Alkaline Phosphatase Magnesium Lactate Dehydrogenase Total Creatine Kinase CK-MB (CK-2) C-Reactive Protein Total Protein Albumin Troponin T HDL Cholesterol Arterial Blood Glucose Urine WBC (Auto) Urine Creatinine Urine Total Protein Phenytoin Coronavirus (PCR) Crossmatch 07/07/20 07/07/20 07/08/20 17:55 23:33 04:14 WBC RBC 3.28 L Hgb 9.7 L Hct 28.9 L D MCHC RDW 16.4 H Lymph % (Auto) 10.3 L [place] % (Auto) 10.0 H Eos % (Auto) Lymph # [place] # Lymph # (Auto) 1.1 L [place] # (Auto) 1.1 H Eos # (Auto) Seg Neutrophils % 77.2 H Seg Neuts % (Manual) Lymphocytes % (Manual) Seg Neutrophils # 8.2 H Seg Neutrophils # Man Lymphocytes # (Manual) Monocytes % (Manual) Eosinophils % (Manual) Monocytes # (Manual) Eosinophils # (Manual) D-Dimer Heparin Anti-Xa Level ABG pH POC ABG pCO2 POC ABG pO2 ABG pO2 ABG HCO3 ABG O2 Saturation ABG Base Excess ABG Hemoglobin ABG Oxyhemoglobin VBG pH ABG Sodium ABG Potassium ABG Glucose Oxyhemoglobin Sodium Potassium Chloride Carbon Dioxide BUN Creatinine Glucose POC Glucose 136 H 159 H Lactic Acid Calcium Ferritin AST Alkaline Phosphatase Magnesium Lactate Dehydrogenase Total Creatine Kinase CK-MB (CK-2) C-Reactive Protein Total Protein Albumin Troponin T HDL Cholesterol Arterial Blood Glucose Urine WBC (Auto) Urine Creatinine Urine Total Protein Phenytoin Coronavirus (PCR) Crossmatch 07/08/20 07/08/20 07/08/20 04:14 12:10 18:10 WBC RBC Hgb Hct MCHC RDW Lymph % (Auto) [place] % (Auto) Eos % (Auto) Lymph # [place] # Lymph # (Auto) [place] # (Auto) Eos # (Auto) Seg Neutrophils % Seg Neuts % (Manual) Lymphocytes % (Manual) Seg Neutrophils # Seg Neutrophils # Man Lymphocytes # (Manual) Monocytes % (Manual) Eosinophils % (Manual) Monocytes # (Manual) Eosinophils # (Manual) D-Dimer Heparin Anti-Xa Level ABG pH POC ABG pCO2 POC ABG pO2 ABG pO2 ABG HCO3 ABG O2 Saturation ABG Base Excess ABG Hemoglobin ABG Oxyhemoglobin VBG pH ABG Sodium ABG Potassium ABG Glucose Oxyhemoglobin Sodium 136 L Potassium Chloride Carbon Dioxide BUN 84 H Creatinine 2.8 H Glucose 109 H POC Glucose 108 H 125 H Lactic Acid Calcium 8.1 L Ferritin AST Alkaline Phosphatase Magnesium 2.50 H Lactate Dehydrogenase Total Creatine Kinase CK-MB (CK-2) C-Reactive Protein Total Protein Albumin Troponin T HDL Cholesterol Arterial Blood Glucose Urine WBC (Auto) Urine Creatinine Urine Total Protein Phenytoin Coronavirus (PCR) Crossmatch 07/08/20 07/09/20 07/09/20 23:50 05:39 11:57 WBC RBC Hgb Hct MCHC RDW Lymph % (Auto) [place] % (Auto) Eos % (Auto) Lymph # [place] # Lymph # (Auto) [place] # (Auto) Eos # (Auto) Seg Neutrophils % Seg Neuts % (Manual) Lymphocytes % (Manual) Seg Neutrophils # Seg Neutrophils # Man Lymphocytes # (Manual) Monocytes % (Manual) Eosinophils % (Manual) Monocytes # (Manual) Eosinophils # (Manual) D-Dimer Heparin Anti-Xa Level ABG pH POC ABG pCO2 POC ABG pO2 ABG pO2 ABG HCO3 ABG O2 Saturation ABG Base Excess ABG Hemoglobin ABG Oxyhemoglobin VBG pH ABG Sodium ABG Potassium ABG Glucose Oxyhemoglobin Sodium Potassium Chloride Carbon Dioxide BUN Creatinine Glucose POC Glucose 141 H 121 H 123 H Lactic Acid Calcium Ferritin AST Alkaline Phosphatase Magnesium Lactate Dehydrogenase Total Creatine Kinase CK-MB (CK-2) C-Reactive Protein Total Protein Albumin Troponin T HDL Cholesterol Arterial Blood Glucose Urine WBC (Auto) Urine Creatinine Urine Total Protein Phenytoin Coronavirus (PCR) Crossmatch 07/09/20 07/10/20 07/10/20 17:56 00:29 05:50 WBC RBC Hgb Hct MCHC RDW Lymph % (Auto) [place] % (Auto) Eos % (Auto) Lymph # [place] # Lymph # (Auto) [place] # (Auto) Eos # (Auto) Seg Neutrophils % Seg Neuts % (Manual) Lymphocytes % (Manual) Seg Neutrophils # Seg Neutrophils # Man Lymphocytes # (Manual) Monocytes % (Manual) Eosinophils % (Manual) Monocytes # (Manual) Eosinophils # (Manual) D-Dimer Heparin Anti-Xa Level ABG pH POC ABG pCO2 POC ABG pO2 ABG pO2 ABG HCO3 ABG O2 Saturation ABG Base Excess ABG Hemoglobin ABG Oxyhemoglobin VBG pH ABG Sodium ABG Potassium ABG Glucose Oxyhemoglobin Sodium Potassium Chloride Carbon Dioxide BUN Creatinine Glucose POC Glucose 119 H 122 H 124 H Lactic Acid Calcium Ferritin AST Alkaline Phosphatase Magnesium Lactate Dehydrogenase Total Creatine Kinase CK-MB (CK-2) C-Reactive Protein Total Protein Albumin Troponin T HDL Cholesterol Arterial Blood Glucose Urine WBC (Auto) Urine Creatinine Urine Total Protein Phenytoin Coronavirus (PCR) Crossmatch 07/10/20 07/10/20 07/10/20 10:41 10:41 12:25 WBC RBC 3.11 L Hgb 9.2 L Hct 27.6 L MCHC RDW 16.6 H Lymph % (Auto) [place] % (Auto) Eos % (Auto) Lymph # [place] # Lymph # (Auto) [place] # (Auto) Eos # (Auto) Seg Neutrophils % Seg Neuts % (Manual) 78.0 H Lymphocytes % (Manual) 11.0 L Seg Neutrophils # Seg Neutrophils # Man Lymphocytes # (Manual) 1.0 L Monocytes % (Manual) Eosinophils % (Manual) Monocytes # (Manual) Eosinophils # (Manual) D-Dimer Heparin Anti-Xa Level ABG pH POC ABG pCO2 POC ABG pO2 ABG pO2 ABG HCO3 ABG O2 Saturation ABG Base Excess ABG Hemoglobin ABG Oxyhemoglobin VBG pH ABG Sodium ABG Potassium ABG Glucose Oxyhemoglobin Sodium Potassium Chloride Carbon Dioxide BUN 85 H Creatinine 2.5 H Glucose 133 H POC Glucose 131 H Lactic Acid Calcium Ferritin AST Alkaline Phosphatase 131 H Magnesium Lactate Dehydrogenase Total Creatine Kinase CK-MB (CK-2) C-Reactive Protein Total Protein 5.2 L Albumin 1.6 L Troponin T HDL Cholesterol Arterial Blood Glucose Urine WBC (Auto) Urine Creatinine Urine Total Protein Phenytoin Coronavirus (PCR) Crossmatch 07/10/20 07/11/20 07/11/20 18:10 00:28 05:57 WBC RBC Hgb Hct MCHC RDW Lymph % (Auto) [place] % (Auto) Eos % (Auto) Lymph # [place] # Lymph # (Auto) [place] # (Auto) Eos # (Auto) Seg Neutrophils % Seg Neuts % (Manual) Lymphocytes % (Manual) Seg Neutrophils # Seg Neutrophils # Man Lymphocytes # (Manual) Monocytes % (Manual) Eosinophils % (Manual) Monocytes # (Manual) Eosinophils # (Manual) D-Dimer Heparin Anti-Xa Level ABG pH POC ABG pCO2 POC ABG pO2 ABG pO2 ABG HCO3 ABG O2 Saturation ABG Base Excess ABG Hemoglobin ABG Oxyhemoglobin VBG pH ABG Sodium ABG Potassium ABG Glucose Oxyhemoglobin Sodium Potassium Chloride Carbon Dioxide BUN Creatinine Glucose POC Glucose 134 H 140 H 148 H Lactic Acid Calcium Ferritin AST Alkaline Phosphatase Magnesium Lactate Dehydrogenase Total Creatine Kinase CK-MB (CK-2) C-Reactive Protein Total Protein Albumin Troponin T HDL Cholesterol Arterial Blood Glucose Urine WBC (Auto) Urine Creatinine Urine Total Protein Phenytoin Coronavirus (PCR) Crossmatch 07/11/20 07/11/20 07/11/20 12:14 17:28 23:49 WBC RBC Hgb Hct MCHC RDW Lymph % (Auto) [place] % (Auto) Eos % (Auto) Lymph # [place] # Lymph # (Auto) [place] # (Auto) Eos # (Auto) Seg Neutrophils % Seg Neuts % (Manual) Lymphocytes % (Manual) Seg Neutrophils # Seg Neutrophils # Man Lymphocytes # (Manual) Monocytes % (Manual) Eosinophils % (Manual) Monocytes # (Manual) Eosinophils # (Manual) D-Dimer Heparin Anti-Xa Level ABG pH POC ABG pCO2 POC ABG pO2 ABG pO2 ABG HCO3 ABG O2 Saturation ABG Base Excess ABG Hemoglobin ABG Oxyhemoglobin VBG pH ABG Sodium ABG Potassium ABG Glucose Oxyhemoglobin Sodium Potassium Chloride Carbon Dioxide BUN Creatinine Glucose POC Glucose 147 H 175 H 114 H Lactic Acid Calcium Ferritin AST Alkaline Phosphatase Magnesium Lactate Dehydrogenase Total Creatine Kinase CK-MB (CK-2) C-Reactive Protein Total Protein Albumin Troponin T HDL Cholesterol Arterial Blood Glucose Urine WBC (Auto) Urine Creatinine Urine Total Protein Phenytoin Coronavirus (PCR) Crossmatch 07/12/20 07/12/20 07/12/20 05:14 05:14 05:44 WBC RBC 2.78 L Hgb 8.5 L Hct 25.3 L MCHC RDW 16.7 H Lymph % (Auto) [place] % (Auto) Eos % (Auto) Lymph # [place] # Lymph # (Auto) [place] # (Auto) Eos # (Auto) Seg Neutrophils % Seg Neuts % (Manual) 81.0 H Lymphocytes % (Manual) 6.0 L Seg Neutrophils # Seg Neutrophils # Man Lymphocytes # (Manual) 0.6 L Monocytes % (Manual) 8.0 H Eosinophils % (Manual) Monocytes # (Manual) Eosinophils # (Manual) D-Dimer Heparin Anti-Xa Level ABG pH POC ABG pCO2 POC ABG pO2 ABG pO2 ABG HCO3 ABG O2 Saturation ABG Base Excess ABG Hemoglobin ABG Oxyhemoglobin VBG pH ABG Sodium ABG Potassium ABG Glucose Oxyhemoglobin Sodium Potassium Chloride Carbon Dioxide BUN 79 H Creatinine 2.2 H Glucose 131 H POC Glucose 116 H Lactic Acid Calcium Ferritin AST Alkaline Phosphatase Magnesium Lactate Dehydrogenase Total Creatine Kinase CK-MB (CK-2) C-Reactive Protein Total Protein Albumin Troponin T HDL Cholesterol Arterial Blood Glucose Urine WBC (Auto) Urine Creatinine Urine Total Protein Phenytoin Coronavirus (PCR) Crossmatch 07/12/20 07/12/20 07/13/20 11:32 17:53 00:18 WBC RBC Hgb Hct MCHC RDW Lymph % (Auto) [place] % (Auto) Eos % (Auto) Lymph # [place] # Lymph # (Auto) [place] # (Auto) Eos # (Auto) Seg Neutrophils % Seg Neuts % (Manual) Lymphocytes % (Manual) Seg Neutrophils # Seg Neutrophils # Man Lymphocytes # (Manual) Monocytes % (Manual) Eosinophils % (Manual) Monocytes # (Manual) Eosinophils # (Manual) D-Dimer Heparin Anti-Xa Level ABG pH POC ABG pCO2 POC ABG pO2 ABG pO2 ABG HCO3 ABG O2 Saturation ABG Base Excess ABG Hemoglobin ABG Oxyhemoglobin VBG pH ABG Sodium ABG Potassium ABG Glucose Oxyhemoglobin Sodium Potassium Chloride Carbon Dioxide BUN Creatinine Glucose POC Glucose 132 H 155 H 162 H Lactic Acid Calcium Ferritin AST Alkaline Phosphatase Magnesium Lactate Dehydrogenase Total Creatine Kinase CK-MB (CK-2) C-Reactive Protein Total Protein Albumin Troponin T HDL Cholesterol Arterial Blood Glucose Urine WBC (Auto) Urine Creatinine Urine Total Protein Phenytoin Coronavirus (PCR) Crossmatch 07/13/20 07/13/20 07/13/20 04:53 04:53 06:14 WBC RBC 2.86 L Hgb 8.4 L Hct 25.7 L MCHC RDW 16.8 H Lymph % (Auto) [place] % (Auto) Eos % (Auto) Lymph # [place] # Lymph # (Auto) [place] # (Auto) Eos # (Auto) Seg Neutrophils % Seg Neuts % (Manual) 84.0 H Lymphocytes % (Manual) 7.0 L Seg Neutrophils # Seg Neutrophils # Man Lymphocytes # (Manual) 0.6 L Monocytes % (Manual) Eosinophils % (Manual) Monocytes # (Manual) Eosinophils # (Manual) D-Dimer Heparin Anti-Xa Level ABG pH POC ABG pCO2 POC ABG pO2 ABG pO2 ABG HCO3 ABG O2 Saturation ABG Base Excess ABG Hemoglobin ABG Oxyhemoglobin VBG pH ABG Sodium ABG Potassium ABG Glucose Oxyhemoglobin Sodium 136 L Potassium Chloride Carbon Dioxide BUN 78 H Creatinine 2.0 H Glucose 130 H POC Glucose 141 H Lactic Acid Calcium Ferritin AST Alkaline Phosphatase Magnesium Lactate Dehydrogenase Total Creatine Kinase CK-MB (CK-2) C-Reactive Protein Total Protein Albumin Troponin T HDL Cholesterol Arterial Blood Glucose Urine WBC (Auto) Urine Creatinine Urine Total Protein Phenytoin Coronavirus (PCR) Crossmatch 07/13/20 07/13/20 07/14/20 12:50 18:27 00:22 WBC RBC Hgb Hct MCHC RDW Lymph % (Auto) [place] % (Auto) Eos % (Auto) Lymph # [place] # Lymph # (Auto) [place] # (Auto) Eos # (Auto) Seg Neutrophils % Seg Neuts % (Manual) Lymphocytes % (Manual) Seg Neutrophils # Seg Neutrophils # Man Lymphocytes # (Manual) Monocytes % (Manual) Eosinophils % (Manual) Monocytes # (Manual) Eosinophils # (Manual) D-Dimer Heparin Anti-Xa Level ABG pH POC ABG pCO2 POC ABG pO2 ABG pO2 ABG HCO3 ABG O2 Saturation ABG Base Excess ABG Hemoglobin ABG Oxyhemoglobin VBG pH ABG Sodium ABG Potassium ABG Glucose Oxyhemoglobin Sodium Potassium Chloride Carbon Dioxide BUN Creatinine Glucose POC Glucose 146 H 149 H 157 H Lactic Acid Calcium Ferritin AST Alkaline Phosphatase Magnesium Lactate Dehydrogenase Total Creatine Kinase CK-MB (CK-2) C-Reactive Protein Total Protein Albumin Troponin T HDL Cholesterol Arterial Blood Glucose Urine WBC (Auto) Urine Creatinine Urine Total Protein Phenytoin Coronavirus (PCR) Crossmatch 07/14/20 07/14/20 07/14/20 05:43 08:04 12:12 WBC RBC Hgb Hct MCHC RDW Lymph % (Auto) [place] % (Auto) Eos % (Auto) Lymph # [place] # Lymph # (Auto) [place] # (Auto) Eos # (Auto) Seg Neutrophils % Seg Neuts % (Manual) Lymphocytes % (Manual) Seg Neutrophils # Seg Neutrophils # Man Lymphocytes # (Manual) Monocytes % (Manual) Eosinophils % (Manual) Monocytes # (Manual) Eosinophils # (Manual) D-Dimer Heparin Anti-Xa Level ABG pH POC ABG pCO2 POC ABG pO2 ABG pO2 ABG HCO3 ABG O2 Saturation ABG Base Excess ABG Hemoglobin ABG Oxyhemoglobin VBG pH ABG Sodium ABG Potassium ABG Glucose Oxyhemoglobin Sodium Potassium Chloride Carbon Dioxide BUN Creatinine Glucose POC Glucose 169 H 185 H Lactic Acid Calcium Ferritin AST Alkaline Phosphatase Magnesium Lactate Dehydrogenase Total Creatine Kinase CK-MB (CK-2) C-Reactive Protein Total Protein Albumin Troponin T HDL Cholesterol Arterial Blood Glucose Urine WBC (Auto) Urine Creatinine Urine Total Protein Phenytoin Coronavirus (PCR) Positive A Crossmatch 07/14/20 07/15/20 07/15/20 17:23 00:04 06:06 WBC RBC Hgb Hct MCHC RDW Lymph % (Auto) [place] % (Auto) Eos % (Auto) Lymph # [place] # Lymph # (Auto) [place] # (Auto) Eos # (Auto) Seg Neutrophils % Seg Neuts % (Manual) Lymphocytes % (Manual) Seg Neutrophils # Seg Neutrophils # Man Lymphocytes # (Manual) Monocytes % (Manual) Eosinophils % (Manual) Monocytes # (Manual) Eosinophils # (Manual) D-Dimer Heparin Anti-Xa Level ABG pH POC ABG pCO2 POC ABG pO2 ABG pO2 ABG HCO3 ABG O2 Saturation ABG Base Excess ABG Hemoglobin ABG Oxyhemoglobin VBG pH ABG Sodium ABG Potassium ABG Glucose Oxyhemoglobin Sodium Potassium Chloride Carbon Dioxide BUN Creatinine Glucose POC Glucose 138 H 121 H 140 H Lactic Acid Calcium Ferritin AST Alkaline Phosphatase Magnesium Lactate Dehydrogenase Total Creatine Kinase CK-MB (CK-2) C-Reactive Protein Total Protein Albumin Troponin T HDL Cholesterol Arterial Blood Glucose Urine WBC (Auto) Urine Creatinine Urine Total Protein Phenytoin Coronavirus (PCR) Crossmatch 07/15/20 07/15/20 07/15/20 12:00 17:53 23:53 WBC RBC Hgb Hct MCHC RDW Lymph % (Auto) [place] % (Auto) Eos % (Auto) Lymph # [place] # Lymph # (Auto) [place] # (Auto) Eos # (Auto) Seg Neutrophils % Seg Neuts % (Manual) Lymphocytes % (Manual) Seg Neutrophils # Seg Neutrophils # Man Lymphocytes # (Manual) Monocytes % (Manual) Eosinophils % (Manual) Monocytes # (Manual) Eosinophils # (Manual) D-Dimer Heparin Anti-Xa Level ABG pH POC ABG pCO2 POC ABG pO2 ABG pO2 ABG HCO3 ABG O2 Saturation ABG Base Excess ABG Hemoglobin ABG Oxyhemoglobin VBG pH ABG Sodium ABG Potassium ABG Glucose Oxyhemoglobin Sodium Potassium Chloride Carbon Dioxide BUN Creatinine Glucose POC Glucose 137 H 161 H 156 H Lactic Acid Calcium Ferritin AST Alkaline Phosphatase Magnesium Lactate Dehydrogenase Total Creatine Kinase CK-MB (CK-2) C-Reactive Protein Total Protein Albumin Troponin T HDL Cholesterol Arterial Blood Glucose Urine WBC (Auto) Urine Creatinine Urine Total Protein Phenytoin Coronavirus (PCR) Crossmatch 07/16/20 07/16/20 07/17/20 05:26 17:44 00:07 WBC RBC Hgb Hct MCHC RDW Lymph % (Auto) [place] % (Auto) Eos % (Auto) Lymph # [place] # Lymph # (Auto) [place] # (Auto) Eos # (Auto) Seg Neutrophils % Seg Neuts % (Manual) Lymphocytes % (Manual) Seg Neutrophils # Seg Neutrophils # Man Lymphocytes # (Manual) Monocytes % (Manual) Eosinophils % (Manual) Monocytes # (Manual) Eosinophils # (Manual) D-Dimer Heparin Anti-Xa Level ABG pH POC ABG pCO2 POC ABG pO2 ABG pO2 ABG HCO3 ABG O2 Saturation ABG Base Excess ABG Hemoglobin ABG Oxyhemoglobin VBG pH ABG Sodium ABG Potassium ABG Glucose Oxyhemoglobin Sodium Potassium Chloride Carbon Dioxide BUN Creatinine Glucose POC Glucose 152 H 126 H 189 H Lactic Acid Calcium Ferritin AST Alkaline Phosphatase Magnesium Lactate Dehydrogenase Total Creatine Kinase CK-MB (CK-2) C-Reactive Protein Total Protein Albumin Troponin T HDL Cholesterol Arterial Blood Glucose Urine WBC (Auto) Urine Creatinine Urine Total Protein Phenytoin Coronavirus (PCR) Crossmatch 07/17/20 07/17/20 07/17/20 12:06 18:20 23:25 WBC RBC Hgb Hct MCHC RDW Lymph % (Auto) [place] % (Auto) Eos % (Auto) Lymph # [place] # Lymph # (Auto) [place] # (Auto) Eos # (Auto) Seg Neutrophils % Seg Neuts % (Manual) Lymphocytes % (Manual) Seg Neutrophils # Seg Neutrophils # Man Lymphocytes # (Manual) Monocytes % (Manual) Eosinophils % (Manual) Monocytes # (Manual) Eosinophils # (Manual) D-Dimer Heparin Anti-Xa Level ABG pH POC ABG pCO2 POC ABG pO2 ABG pO2 ABG HCO3 ABG O2 Saturation ABG Base Excess ABG Hemoglobin ABG Oxyhemoglobin VBG pH ABG Sodium ABG Potassium ABG Glucose Oxyhemoglobin Sodium Potassium Chloride Carbon Dioxide BUN Creatinine Glucose POC Glucose 155 H 206 H 161 H Lactic Acid Calcium Ferritin AST Alkaline Phosphatase Magnesium Lactate Dehydrogenase Total Creatine Kinase CK-MB (CK-2) C-Reactive Protein Total Protein Albumin Troponin T HDL Cholesterol Arterial Blood Glucose Urine WBC (Auto) Urine Creatinine Urine Total Protein Phenytoin Coronavirus (PCR) Crossmatch 07/18/20 07/18/20 07/18/20 04:24 05:16 11:53 WBC RBC Hgb Hct MCHC RDW Lymph % (Auto) [place] % (Auto) Eos % (Auto) Lymph # [place] # Lymph # (Auto) [place] # (Auto) Eos # (Auto) Seg Neutrophils % Seg Neuts % (Manual) Lymphocytes % (Manual) Seg Neutrophils # Seg Neutrophils # Man Lymphocytes # (Manual) Monocytes % (Manual) Eosinophils % (Manual) Monocytes # (Manual) Eosinophils # (Manual) D-Dimer Heparin Anti-Xa Level ABG pH POC ABG pCO2 POC ABG pO2 ABG pO2 ABG HCO3 ABG O2 Saturation ABG Base Excess ABG Hemoglobin 8.8 L ABG Oxyhemoglobin VBG pH ABG Sodium 131.6 L ABG Potassium 4.9 H ABG Glucose 131 H Oxyhemoglobin Sodium Potassium Chloride Carbon Dioxide BUN Creatinine Glucose POC Glucose 140 H 176 H Lactic Acid Calcium Ferritin AST Alkaline Phosphatase Magnesium Lactate Dehydrogenase Total Creatine Kinase CK-MB (CK-2) C-Reactive Protein Total Protein Albumin Troponin T HDL Cholesterol Arterial Blood Glucose 131 H Urine WBC (Auto) Urine Creatinine Urine Total Protein Phenytoin Coronavirus (PCR) Crossmatch 07/18/20 07/18/20 07/19/20 18:11 23:51 01:05 WBC RBC 2.76 L Hgb 7.9 L Hct 24.5 L MCHC RDW 17.6 H Lymph % (Auto) 11.6 L [place] % (Auto) 13.1 H Eos % (Auto) Lymph # [place] # Lymph # (Auto) 1.0 L [place] # (Auto) 1.1 H Eos # (Auto) Seg Neutrophils % 70.9 H Seg Neuts % (Manual) Lymphocytes % (Manual) Seg Neutrophils # Seg Neutrophils # Man Lymphocytes # (Manual) Monocytes % (Manual) Eosinophils % (Manual) Monocytes # (Manual) Eosinophils # (Manual) D-Dimer Heparin Anti-Xa Level ABG pH POC ABG pCO2 POC ABG pO2 ABG pO2 ABG HCO3 ABG O2 Saturation ABG Base Excess ABG Hemoglobin ABG Oxyhemoglobin VBG pH ABG Sodium ABG Potassium ABG Glucose Oxyhemoglobin Sodium Potassium Chloride Carbon Dioxide BUN Creatinine Glucose POC Glucose 143 H 159 H Lactic Acid Calcium Ferritin AST Alkaline Phosphatase Magnesium Lactate Dehydrogenase Total Creatine Kinase CK-MB (CK-2) C-Reactive Protein Total Protein Albumin Troponin T HDL Cholesterol Arterial Blood Glucose Urine WBC (Auto) Urine Creatinine Urine Total Protein Phenytoin Coronavirus (PCR) Crossmatch 07/19/20 07/19/20 07/19/20 01:05 05:54 12:46 WBC RBC Hgb Hct MCHC RDW Lymph % (Auto) [place] % (Auto) Eos % (Auto) Lymph # [place] # Lymph # (Auto) [place] # (Auto) Eos # (Auto) Seg Neutrophils % Seg Neuts % (Manual) Lymphocytes % (Manual) Seg Neutrophils # Seg Neutrophils # Man Lymphocytes # (Manual) Monocytes % (Manual) Eosinophils % (Manual) Monocytes # (Manual) Eosinophils # (Manual) D-Dimer Heparin Anti-Xa Level ABG pH POC ABG pCO2 POC ABG pO2 ABG pO2 ABG HCO3 ABG O2 Saturation ABG Base Excess ABG Hemoglobin ABG Oxyhemoglobin VBG pH ABG Sodium ABG Potassium ABG Glucose Oxyhemoglobin Sodium Potassium Chloride Carbon Dioxide BUN 86 H Creatinine 1.7 H Glucose 149 H POC Glucose 176 H 127 H Lactic Acid Calcium Ferritin AST Alkaline Phosphatase Magnesium Lactate Dehydrogenase Total Creatine Kinase CK-MB (CK-2) C-Reactive Protein Total Protein Albumin Troponin T HDL Cholesterol Arterial Blood Glucose Urine WBC (Auto) Urine Creatinine Urine Total Protein Phenytoin Coronavirus (PCR) Crossmatch 07/19/20 07/20/20 07/20/20 17:48 00:34 05:28 WBC RBC Hgb Hct MCHC RDW Lymph % (Auto) [place] % (Auto) Eos % (Auto) Lymph # [place] # Lymph # (Auto) [place] # (Auto) Eos # (Auto) Seg Neutrophils % Seg Neuts % (Manual) Lymphocytes % (Manual) Seg Neutrophils # Seg Neutrophils # Man Lymphocytes # (Manual) Monocytes % (Manual) Eosinophils % (Manual) Monocytes # (Manual) Eosinophils # (Manual) D-Dimer Heparin Anti-Xa Level ABG pH POC ABG pCO2 POC ABG pO2 ABG pO2 ABG HCO3 ABG O2 Saturation ABG Base Excess ABG Hemoglobin ABG Oxyhemoglobin VBG pH ABG Sodium ABG Potassium ABG Glucose Oxyhemoglobin Sodium Potassium Chloride Carbon Dioxide BUN Creatinine Glucose POC Glucose 123 H 147 H 110 H Lactic Acid Calcium Ferritin AST Alkaline Phosphatase Magnesium Lactate Dehydrogenase Total Creatine Kinase CK-MB (CK-2) C-Reactive Protein Total Protein Albumin Troponin T HDL Cholesterol Arterial Blood Glucose Urine WBC (Auto) Urine Creatinine Urine Total Protein Phenytoin Coronavirus (PCR) Crossmatch 07/20/20 07/20/20 07/21/20 12:10 17:00 00:11 WBC RBC Hgb Hct MCHC RDW Lymph % (Auto) [place] % (Auto) Eos % (Auto) Lymph # [place] # Lymph # (Auto) [place] # (Auto) Eos # (Auto) Seg Neutrophils % Seg Neuts % (Manual) Lymphocytes % (Manual) Seg Neutrophils # Seg Neutrophils # Man Lymphocytes # (Manual) Monocytes % (Manual) Eosinophils % (Manual) Monocytes # (Manual) Eosinophils # (Manual) D-Dimer Heparin Anti-Xa Level ABG pH POC ABG pCO2 POC ABG pO2 ABG pO2 ABG HCO3 ABG O2 Saturation ABG Base Excess ABG Hemoglobin ABG Oxyhemoglobin VBG pH ABG Sodium ABG Potassium ABG Glucose Oxyhemoglobin Sodium Potassium Chloride Carbon Dioxide BUN Creatinine Glucose POC Glucose 149 H 173 H 128 H Lactic Acid Calcium Ferritin AST Alkaline Phosphatase Magnesium Lactate Dehydrogenase Total Creatine Kinase CK-MB (CK-2) C-Reactive Protein Total Protein Albumin Troponin T HDL Cholesterol Arterial Blood Glucose Urine WBC (Auto) Urine Creatinine Urine Total Protein Phenytoin Coronavirus (PCR) Crossmatch 07/21/20 07/21/20 07/21/20 05:30 12:21 18:17 WBC RBC Hgb Hct MCHC RDW Lymph % (Auto) [place] % (Auto) Eos % (Auto) Lymph # [place] # Lymph # (Auto) [place] # (Auto) Eos # (Auto) Seg Neutrophils % Seg Neuts % (Manual) Lymphocytes % (Manual) Seg Neutrophils # Seg Neutrophils # Man Lymphocytes # (Manual) Monocytes % (Manual) Eosinophils % (Manual) Monocytes # (Manual) Eosinophils # (Manual) D-Dimer Heparin Anti-Xa Level ABG pH POC ABG pCO2 POC ABG pO2 ABG pO2 ABG HCO3 ABG O2 Saturation ABG Base Excess ABG Hemoglobin ABG Oxyhemoglobin VBG pH ABG Sodium ABG Potassium ABG Glucose Oxyhemoglobin Sodium Potassium Chloride Carbon Dioxide BUN Creatinine Glucose POC Glucose 153 H 144 H 160 H Lactic Acid Calcium Ferritin AST Alkaline Phosphatase Magnesium Lactate Dehydrogenase Total Creatine Kinase CK-MB (CK-2) C-Reactive Protein Total Protein Albumin Troponin T HDL Cholesterol Arterial Blood Glucose Urine WBC (Auto) Urine Creatinine Urine Total Protein Phenytoin Coronavirus (PCR) Crossmatch 07/22/20 07/22/20 07/22/20 00:45 05:52 12:03 WBC RBC Hgb Hct MCHC RDW Lymph % (Auto) [place] % (Auto) Eos % (Auto) Lymph # [place] # Lymph # (Auto) [place] # (Auto) Eos # (Auto) Seg Neutrophils % Seg Neuts % (Manual) Lymphocytes % (Manual) Seg Neutrophils # Seg Neutrophils # Man Lymphocytes # (Manual) Monocytes % (Manual) Eosinophils % (Manual) Monocytes # (Manual) Eosinophils # (Manual) D-Dimer Heparin Anti-Xa Level ABG pH POC ABG pCO2 POC ABG pO2 ABG pO2 ABG HCO3 ABG O2 Saturation ABG Base Excess ABG Hemoglobin ABG Oxyhemoglobin VBG pH ABG Sodium ABG Potassium ABG Glucose Oxyhemoglobin Sodium Potassium Chloride Carbon Dioxide BUN Creatinine Glucose POC Glucose 128 H 126 H 157 H Lactic Acid Calcium Ferritin AST Alkaline Phosphatase Magnesium Lactate Dehydrogenase Total Creatine Kinase CK-MB (CK-2) C-Reactive Protein Total Protein Albumin Troponin T HDL Cholesterol Arterial Blood Glucose Urine WBC (Auto) Urine Creatinine Urine Total Protein Phenytoin Coronavirus (PCR) Crossmatch 07/22/20 07/22/20 07/23/20 18:23 23:20 06:06 WBC RBC Hgb Hct MCHC RDW Lymph % (Auto) [place] % (Auto) Eos % (Auto) Lymph # [place] # Lymph # (Auto) [place] # (Auto) Eos # (Auto) Seg Neutrophils % Seg Neuts % (Manual) Lymphocytes % (Manual) Seg Neutrophils # Seg Neutrophils # Man Lymphocytes # (Manual) Monocytes % (Manual) Eosinophils % (Manual) Monocytes # (Manual) Eosinophils # (Manual) D-Dimer Heparin Anti-Xa Level ABG pH POC ABG pCO2 POC ABG pO2 ABG pO2 ABG HCO3 ABG O2 Saturation ABG Base Excess ABG Hemoglobin ABG Oxyhemoglobin VBG pH ABG Sodium ABG Potassium ABG Glucose Oxyhemoglobin Sodium Potassium Chloride Carbon Dioxide BUN Creatinine Glucose POC Glucose 152 H 122 H 143 H Lactic Acid Calcium Ferritin AST Alkaline Phosphatase Magnesium Lactate Dehydrogenase Total Creatine Kinase CK-MB (CK-2) C-Reactive Protein Total Protein Albumin Troponin T HDL Cholesterol Arterial Blood Glucose Urine WBC (Auto) Urine Creatinine Urine Total Protein Phenytoin Coronavirus (PCR) Crossmatch 07/23/20 07/23/20 07/23/20 12:11 17:38 19:23 WBC RBC Hgb Hct MCHC RDW Lymph % (Auto) [place] % (Auto) Eos % (Auto) Lymph # [place] # Lymph # (Auto) [place] # (Auto) Eos # (Auto) Seg Neutrophils % Seg Neuts % (Manual) Lymphocytes % (Manual) Seg Neutrophils # Seg Neutrophils # Man Lymphocytes # (Manual) Monocytes % (Manual) Eosinophils % (Manual) Monocytes # (Manual) Eosinophils # (Manual) D-Dimer Heparin Anti-Xa Level ABG pH POC ABG pCO2 POC ABG pO2 ABG pO2 ABG HCO3 ABG O2 Saturation ABG Base Excess ABG Hemoglobin ABG Oxyhemoglobin VBG pH ABG Sodium ABG Potassium ABG Glucose Oxyhemoglobin Sodium 129 L D Potassium 5.8 H Chloride 95.6 L Carbon Dioxide BUN 98 H Creatinine 2.1 H Glucose 167 H POC Glucose 210 H 181 H Lactic Acid Calcium Ferritin AST Alkaline Phosphatase Magnesium Lactate Dehydrogenase Total Creatine Kinase CK-MB (CK-2) C-Reactive Protein Total Protein Albumin 2.2 L Troponin T HDL Cholesterol Arterial Blood Glucose Urine WBC (Auto) Urine Creatinine Urine Total Protein Phenytoin Coronavirus (PCR) Crossmatch 07/24/20 07/24/20 07/24/20 00:00 04:29 04:29 WBC RBC 2.53 L Hgb 7.5 L Hct 22.8 L MCHC RDW 16.8 H Lymph % (Auto) 9.4 L [place] % (Auto) 10.4 H Eos % (Auto) 5.9 H Lymph # [place] # Lymph # (Auto) 0.8 L [place] # (Auto) 0.9 H Eos # (Auto) 0.5 H Seg Neutrophils % 73.5 H Seg Neuts % (Manual) Lymphocytes % (Manual) Seg Neutrophils # Seg Neutrophils # Man Lymphocytes # (Manual) Monocytes % (Manual) Eosinophils % (Manual) Monocytes # (Manual) Eosinophils # (Manual) D-Dimer Heparin Anti-Xa Level ABG pH POC ABG pCO2 POC ABG pO2 ABG pO2 ABG HCO3 ABG O2 Saturation ABG Base Excess ABG Hemoglobin ABG Oxyhemoglobin VBG pH ABG Sodium ABG Potassium ABG Glucose Oxyhemoglobin Sodium Potassium Chloride Carbon Dioxide BUN Creatinine Glucose POC Glucose 201 H Lactic Acid Calcium Ferritin AST Alkaline Phosphatase Magnesium Lactate Dehydrogenase Total Creatine Kinase CK-MB (CK-2) C-Reactive Protein Total Protein Albumin Troponin T HDL Cholesterol Arterial Blood Glucose Urine WBC (Auto) Urine Creatinine Urine Total Protein Phenytoin 9.4 L Coronavirus (PCR) Crossmatch 07/24/20 07/24/20 07/24/20 04:29 05:11 12:14 WBC RBC Hgb Hct MCHC RDW Lymph % (Auto) [place] % (Auto) Eos % (Auto) Lymph # [place] # Lymph # (Auto) [place] # (Auto) Eos # (Auto) Seg Neutrophils % Seg Neuts % (Manual) Lymphocytes % (Manual) Seg Neutrophils # Seg Neutrophils # Man Lymphocytes # (Manual) Monocytes % (Manual) Eosinophils % (Manual) Monocytes # (Manual) Eosinophils # (Manual) D-Dimer Heparin Anti-Xa Level ABG pH POC ABG pCO2 POC ABG pO2 ABG pO2 ABG HCO3 ABG O2 Saturation ABG Base Excess ABG Hemoglobin ABG Oxyhemoglobin VBG pH ABG Sodium ABG Potassium ABG Glucose Oxyhemoglobin Sodium 134 L Potassium 5.5 H Chloride Carbon Dioxide BUN 97 H Creatinine 2.2 H Glucose 149 H POC Glucose 142 H 146 H Lactic Acid Calcium Ferritin AST Alkaline Phosphatase Magnesium 2.60 H Lactate Dehydrogenase Total Creatine Kinase CK-MB (CK-2) C-Reactive Protein Total Protein Albumin Troponin T HDL Cholesterol Arterial Blood Glucose Urine WBC (Auto) Urine Creatinine Urine Total Protein Phenytoin Coronavirus (PCR) Crossmatch 07/24/20 07/24/20 07/25/20 18:12 21:00 00:08 WBC RBC Hgb Hct MCHC RDW Lymph % (Auto) [place] % (Auto) Eos % (Auto) Lymph # [place] # Lymph # (Auto) [place] # (Auto) Eos # (Auto) Seg Neutrophils % Seg Neuts % (Manual) Lymphocytes % (Manual) Seg Neutrophils # Seg Neutrophils # Man Lymphocytes # (Manual) Monocytes % (Manual) Eosinophils % (Manual) Monocytes # (Manual) Eosinophils # (Manual) D-Dimer Heparin Anti-Xa Level ABG pH POC ABG pCO2 POC ABG pO2 ABG pO2 ABG HCO3 ABG O2 Saturation ABG Base Excess ABG Hemoglobin ABG Oxyhemoglobin VBG pH ABG Sodium ABG Potassium ABG Glucose Oxyhemoglobin Sodium Potassium Chloride Carbon Dioxide BUN Creatinine Glucose POC Glucose 182 H 170 H 129 H Lactic Acid Calcium Ferritin AST Alkaline Phosphatase Magnesium Lactate Dehydrogenase Total Creatine Kinase CK-MB (CK-2) C-Reactive Protein Total Protein Albumin Troponin T HDL Cholesterol Arterial Blood Glucose Urine WBC (Auto) Urine Creatinine Urine Total Protein Phenytoin Coronavirus (PCR) Crossmatch 07/25/20 07/25/20 07/25/20 04:24 04:24 12:19 WBC RBC 2.51 L Hgb 7.5 L Hct 22.3 L MCHC RDW 17.4 H Lymph % (Auto) [place] % (Auto) Eos % (Auto) Lymph # [place] # Lymph # (Auto) [place] # (Auto) Eos # (Auto) Seg Neutrophils % Seg Neuts % (Manual) Lymphocytes % (Manual) Seg Neutrophils # Seg Neutrophils # Man Lymphocytes # (Manual) Monocytes % (Manual) Eosinophils % (Manual) Monocytes # (Manual) Eosinophils # (Manual) D-Dimer Heparin Anti-Xa Level ABG pH POC ABG pCO2 POC ABG pO2 ABG pO2 ABG HCO3 ABG O2 Saturation ABG Base Excess ABG Hemoglobin ABG Oxyhemoglobin VBG pH ABG Sodium ABG Potassium ABG Glucose Oxyhemoglobin Sodium 132 L Potassium Chloride 95.1 L Carbon Dioxide 21 L BUN 95 H Creatinine 2.5 H Glucose 108 H POC Glucose 122 H Lactic Acid Calcium Ferritin AST Alkaline Phosphatase Magnesium Lactate Dehydrogenase Total Creatine Kinase CK-MB (CK-2) C-Reactive Protein Total Protein Albumin Troponin T HDL Cholesterol Arterial Blood Glucose Urine WBC (Auto) Urine Creatinine Urine Total Protein Phenytoin Coronavirus (PCR) Crossmatch Chest x-ray: pending Allied health notes reviewed: nursing
[2020-07-25] MEDS: INSULIN GLARGINE 100 UNITS/ML SUB-Q SCH (23:34)
[2020-07-26] MEDS: INSULIN LISPRO 100 UNIT/ML VIAL 3 mL SUB-Q SCH ×4 (00:19→17:53)
[2020-07-26] MEDS: cloNIDine 0.2 MG TAB PO SCH ×2 (02:32→11:47)
[2020-07-26 05:11] LABS: Calcium 8.2 mg/dL (8.4-10.2)
[2020-07-26] MEDS: PHENYTOIN IV SCH ×3 (06:04→22:18)
[2020-07-26] MEDS: SODIUM CHLORIDE 0.9% IV SCH ×3 (06:04→22:18)
[2020-07-26] MEDS: HEPARIN 5,000 UNIT/1 ML VIAL SUB-Q SCH ×3 (06:05→22:08)
[2020-07-26] MEDS: hydrALAZINE 100 MG TAB PO SCH ×3 (09:21→21:02)
[2020-07-26] MEDS: FUROSEMIDE 40 MG/4 ML INJ IV SCH ×2 (09:30→22:08)
[2020-07-26] MEDS: amLODIPine 10 MG TAB PO SCH (09:30)
[2020-07-26] MEDS: GLYCOPYRROLATE 2 MG TAB PO SCH ×3 (09:30→21:02)
[2020-07-26] MEDS: levETIRAcetam 500 MG/5 ML ORAL LIQD PO SCH ×2 (09:31→22:18)
[2020-07-26] MEDS: carvediloL 25 MG TAB PO SCH ×2 (09:31→22:13)
[2020-07-26] MEDS: LANSOPRAZOLE 30 MG SOLUTAB FEEDTUBE SCH ×2 (09:32→22:08)
[2020-07-26] MEDS: SENNOSIDES ORAL LIQD 8.8 MG/5 ML ORAL LIQD FEEDTUBE SCH ×2 (09:32→22:14)
[2020-07-26] MEDS: MINOXIDIL 2.5 MG TAB PO SCH ×2 (09:32→22:19)
--- NOTE | 2020-07-26 10:01 | Progress Note ---
Assessment and Plan Assessment and plan: 64 YO Female with a medical history of HTN, Diastolic CHF, Pulmonary HTN, DM, Obesity Hypoventilation Syndrome presents to ED for evaluation of shortness of breath. As per staff, the EMS was notified for difficulty breathing. Upon arrival to the patient's home the patient was found to be in distress and was subsequently transported to [facility] for further evaluation and care. In route to [facility] the patient developed cardiac arrest and was treated in accordance with ACLS protocol with return of ROSC. Patient was seen and evaluated in the emergency department and was intubated and placed on ventilatory support. Patient admitted to ICU. Critical care team consulted in ED. She was found to have COVID-19 infection and was started on steroids and remdesivir. ID was consulted. Cardiology was consulted for her systolic heart failure and cardiac arrest. Patient completed treatment for COVID-19, then develop superimposed bacterial pneumonia with Klebsiella. She is now extubated, 06/12/2020 but remains confused and requiring high flow O2 and intermittent BiPAP. Patient had another cardiac arrest reintubated 06/26/2020, currently in ICU vent dependent, unable to do trach and PEG due to persistent COVID-19 positive state, as well as anoxic brain injury, unable to get MRI , neurology following. Assessment and plan: 05/28/2020 COVID-19 test positive 06/29/2020 COVID-19 test positive 07/14/2020 COVID-19 test positive --Acute hypoxemic respiratory failure; vent dependent intubated on admission, extubated on 06/12/20 then placed on high flow o2 patient developed another respiratory arrest on 06/26 - reintubated Patient not tolerating weaning parameters CC following, Surgery evaluated the patient for trach and PEG COVID-19 test positive x3, trach and PEG pending neuro evaluation to evaluate severity of anoxic brain injury -- Hypertension; well controlled Increase hydralazine dose to 75 mg 3 times a day Continue amlodipine, coreg, clonidine and hydralazine And minoxidil, closely monitor blood pressures PRN labetalol --s/p cardiopulmonary arrest on admission, 06/26 and 07/01, s/p CPR per ACLS protocol, refer to code sheet --Possible anoxic brain injury, neurology consulted, neuro requested MRI brain, EEG MRI brain could not be done due to body habitus, EEG not done --Seizures seizure precautions; continue Keppra, follow EEG neurology following --Acute renal failure : creatinine 2.4-2.5-2.9-1.7 --Acute renal failure : creatinine 2.4-2.5-2.9-1.7 Vasomotor nephropathy, gentle hydration Avoid nephrotoxins, monitor renal function Reconsult nephrology if needed --Rectal bleeding; resolved --Acute blood loss anemia; total 3 units PRBC transfused Closely monitor H&H, GI following, no plans of endoscopy --Severe sepsis; completed antibiotics per ID persistently positive for COVID-19 and Klebsiella pneumoniae --COVID-19 b/l PNA Completed remdesivir on 06/02 Completed dexamethasone - Last dose 06/07 COVID 19 test positive x 3 during this admission --Superficial left cephalic vein DVT/elevated D-dimers[COVID 19] Patient initially started on heparin drip from 05/29/20 D-dimers improved [phone] treated with Eliquis 5 mg twice a day for 1 week[per ID] stop date 06/26/2020 -- Acute toxic metabolic encephalopathy, POA likely from sepsis and s/p cardiac arrest with possible anoxic injury -- Acute renal failure: likely ATN avoid nephrotoxins, reconsult nephrology if no improvement --Klebsiella pneumonia: ID evaluated completed second round of 5 days of cefepime on 07/04/2020 --Acute on chronic systolic heart failure Cardiology following. Ef 45% -- Coffee ground emesis -Stress ulcers Possible stress ulcers, On PPI H/H again dropped - transfuse GI evaluated --Transaminitis. Etiology likely from COVID-19. cont to monitor --Hyperkalemia; calcium gluconate, Kayexalate, monitor electrolytes --Shock; fluid bolus, Levophed per protocol Patient critically ill poor prognosis Currently patient is hypertensive -- DVT prophylaxis Eliquis, SCD to bilateral lower extremities while in bed -- Advance care planning Patient is critically ill with multiple medical problems Poor prognosis, family updated and requesting full code The high probability of a clinically significant, sudden or life threatening deterioration of the [CVS, renal, respiratory, MOUNTER CLARINETS] system(s) required my full and direct attention, intervention and personal management. The aggregate critical care time was [35] minutes. This time is in addition to time spent performing reported procedures but includes the following: [x] Data Review and interpretation [x] Patient assessment and monitoring of vital signs [x] Documentation [x] Medication orders and management 07/11/2020. Patient currently on mechanical ventilation AC/PRVC with rate of 12, tidal volume 450, FiO2 30% and PEEP of 6 07/12/2020. Patient placed on CPAP with pressure support of 10 and tolerating well. Continue PSB trials as tolerated. 07/13/2020. Patient currently with AC mode rate 12, tidal volume 450, FiO2 30% and PEEP of 6. Surgery has been consulted for trach and PEG placement. Recall nephrology for renal insufficiency. 07/14/20; surgery evaluated for trach and PEG , pending call with test which is is positive today COVID-19 test positive x3 since admission 07/16; trach and PEG pending neuro evaluation 07/17; vent dependent, trach PEG pending neuro evaluation, pending MRI EEG study[already ordered] 07/18; unable to do MRI, due to body habitus, morbid obesity, radiology consult Patient critically ill very poor prognosis 07/19; remains intubated on vent, clinically no change 07/20; unable to wean, needs trach and PEG, need MRI , unable to do due to body habitus 07/21; clinically no change, remains intubated on ventilatory support 07/22; I recommend family meeting, to discuss the goals of treatment, discussed with case management 07/23; patient's blood pressures in the lower range, will hold antihypertensives, fluid bolus, if no improvement Levophed per protocol 07/24: Patient remains critically ill, unable to obtain MRI at this facility and unstable for transfer, Will reconsult Nephrology as creatinine now worse, with worsening Hypotension and Hyperkalemia- Overnight the patient required pressors Secondary to Hypotension, Will place PICC line. Will give kayxalate, continue to hold all BP meds. Hyponatermia improving. 07/24; patient remains to critically ill, nephrology consult appreciated, creatinine is worsening. Hypotension resolved with. Still patient is hypernatremic 07/26; patient is hypertensive and her blood pressure medications were resumed and as needed medications also started. Patient is being followed by nephrology for hyponatremia and AVANI. Patient has anemia. We will check labs in the morning. Disposition; recommend family conference to decide the goals of treatment, prognosis, CODE STATUS. History Interval history: Patient was seen and evaluated this morning Patient is intubated and on mechanical ventilation Hospitalist Physical - Physical exam Narrative exam: Intubated and on mechanical ventilation The patient is morbidly obese. Vital signs as documented. Head exam is unremarkable. No scleral icterus . Neck is without jugular venous distension, thyromegaly, or carotid bruits. Lungs are clear to auscultation. Cardiac exam reveals regular rate and Rhythm. Abdominal exam reveals normal bowel sounds, nontender, no organomegaly. Extremities are nonedematous and both femoral and pedal pulses are normal. MOUNTER CLARINETS: Intubated. - Constitutional Vitals: Temp Pulse Resp BP Pulse Ox 98.8 F 69 29 H 165/43 95 07/26/20 08:00 07/26/20 09:31 07/26/20 09:01 07/26/20 09:31 07/26/20 09:01 General appearance: Present: no acute distress, well-nourished, obese (Morbidly obese), other (Intubated on ventilatory support) HEART Score - HEART Score Troponin: Troponin T 0.067 ng/mL (0.00-0.029) H 07/01/20 06:01 Results - Labs CBC & Chem 7: 07/25/20 04:24 07/26/20 04:22 Labs: Laboratory Last Values WBC 7.7 K/mm3 (4.5-11.0) 07/25/20 04:24 RBC 2.51 M/mm3 (3.65-5.03) L 07/25/20 04:24 Hgb 7.5 gm/dl (10.1-14.3) L 07/25/20 04:24 Hct 22.3 % (30.3-42.9) L 07/25/20 04:24 MCV 89 fl (79-97) 07/25/20 04:24 MCH 30 pg (28-32) 07/25/20 04:24 MCHC 34 % (30-34) 07/25/20 04:24 RDW 17.4 % (13.2-15.2) H 07/25/20 04:24 Plt Count 379 K/mm3 (140-440) 07/25/20 04:24 Lymph % (Auto) 9.4 % (13.4-35.0) L 07/24/20 04:29 Churchill % (Auto) 10.4 % (0.0-7.3) H 07/24/20 04:29 Eos % (Auto) 5.9 % (0.0-4.3) H 07/24/20 04:29 Baso % (Auto) 0.8 % (0.0-1.8) 07/24/20 04:29 Lymph # (Auto) 0.8 K/mm3 (1.2-5.4) L 07/24/20 04:29 Churchill # (Auto) 0.9 K/mm3 (0.0-0.8) H 07/24/20 04:29 Eos # (Auto) 0.5 K/mm3 (0.0-0.4) H 07/24/20 04:29 Baso # (Auto) 0.1 K/mm3 (0.0-0.1) 07/24/20 04:29 Add Manual Diff Complete 07/13/20 04:53 Total Counted 100 07/13/20 04:53 Seg Neutrophils % 73.5 % (40.0-70.0) H 07/24/20 04:29 Seg Neuts % (Manual) 84.0 % (40.0-70.0) H 07/13/20 04:53 Band Neutrophils % 1.0 % 07/13/20 04:53 Lymphocytes % (Manual) 7.0 % (13.4-35.0) L 07/13/20 04:53 Reactive Lymphs % (Man) 0 % 07/13/20 04:53 Monocytes % (Manual) 5.0 % (0.0-7.3) 07/13/20 04:53 Eosinophils % (Manual) 1.0 % (0.0-4.3) 07/13/20 04:53 Basophils % (Manual) 0 % (0.0-1.8) 07/13/20 04:53 Metamyelocytes % 2.0 % 07/13/20 04:53 Myelocytes % 0 % 07/13/20 04:53 Promyelocytes % 0 % 07/13/20 04:53 Blast Cells % 0 % 07/13/20 04:53 Nucleated RBC % Not Reportable 07/13/20 04:53 Seg Neutrophils # 6.1 K/mm3 (1.8-7.7) 07/24/20 04:29 Seg Neutrophils # Man 7.1 K/mm3 (1.8-7.7) 07/13/20 04:53 Band Neutrophils # 0.1 K/mm3 07/13/20 04:53 Lymphocytes # (Manual) 0.6 K/mm3 (1.2-5.4) L 07/13/20 04:53 Abs React Lymphs (Man) 0.0 K/mm3 07/13/20 04:53 Monocytes # (Manual) 0.4 K/mm3 (0.0-0.8) 07/13/20 04:53 Eosinophils # (Manual) 0.1 K/mm3 (0.0-0.4) 07/13/20 04:53 Basophils # (Manual) 0.0 K/mm3 (0.0-0.1) 07/13/20 04:53 Metamyelocytes # 0.2 K/mm3 07/13/20 04:53 Myelocytes # 0.0 K/mm3 07/13/20 04:53 Promyelocytes # 0.0 K/mm3 07/13/20 04:53 Blast Cells # 0.0 K/mm3 07/13/20 04:53 WBC Morphology Not Reportable 07/13/20 04:53 Hypersegmented Neuts Not Reportable 07/13/20 04:53 Hyposegmented Neuts Not Reportable 07/13/20 04:53 Hypogranular Neuts Not Reportable 07/13/20 04:53 Smudge Cells Not Reportable 07/13/20 04:53 Toxic Granulation Not Reportable 07/13/20 04:53 Toxic Vacuolation Not Reportable 07/13/20 04:53 Dohle Bodies Not Reportable 07/13/20 04:53 Pelger-Huet Anomaly Not Reportable 07/13/20 04:53 Sanjuanita Rods Not Reportable 07/13/20 04:53 Platelet Estimate Consistent w auto 07/13/20 04:53 Clumped Platelets Not Reportable 07/13/20 04:53 Plt Clumps, EDTA Not Reportable 07/13/20 04:53 Large Platelets Not Reportable 07/13/20 04:53 Giant Platelets Not Reportable 07/13/20 04:53 Platelet Satelliting Not Reportable 07/13/20 04:53 Plt Morphology Comment Not Reportable 07/13/20 04:53 RBC Morphology Not Reportable 07/13/20 04:53 Dimorphic RBCs Not Reportable 07/13/20 04:53 Polychromasia Not Reportable 07/13/20 04:53 Hypochromasia Not Reportable 07/13/20 04:53 Poikilocytosis Not Reportable 07/13/20 04:53 Anisocytosis 1+ 07/13/20 04:53 Microcytosis Not Reportable 07/13/20 04:53 Macrocytosis Not Reportable 07/13/20 04:53 Spherocytes Not Reportable 07/13/20 04:53 Pappenheimer Bodies Not Reportable 07/13/20 04:53 Sickle Cells Not Reportable 07/13/20 04:53 Target Cells Not Reportable 07/13/20 04:53 Tear Drop Cells Not Reportable 07/13/20 04:53 Ovalocytes Not Reportable 07/13/20 04:53 Helmet Cells Not Reportable 07/13/20 04:[address] [place] Bodies Not Reportable 07/13/20 04:53 [place] Rings Not Reportable 07/13/20 04:53 [place] Cells Not Reportable 07/13/20 04:53 Bite Cells Not Reportable 07/13/20 04:53 Crenated Cell Not Reportable 07/13/20 04:53 Elliptocytes Not Reportable 07/13/20 04:53 Acanthocytes (Spur) Not Reportable 07/13/20 04:53 Rouleaux Not Reportable 07/13/20 04:53 Hemoglobin C Crystals Not Reportable 07/13/20 04:53 Schistocytes Not Reportable 07/13/20 04:53 Malaria parasites Not Reportable 07/13/20 04:53 Kev Bodies Not Reportable 07/13/20 04:53 Hem Pathologist Commnt No 07/13/20 04:53 PT 14.2 Sec. (12.2-14.9) 05/29/20 15:10 INR 1.08 (0.87-1.13) 05/29/20 15:10 APTT 27.2 Sec. (24.2-36.6) 05/29/20 15:10 D-Dimer 2310.15 ng/mlDDU (0-234) H 06/29/20 14:45 Heparin Anti-Xa Level 0.34 U.I./ml (0.3-0.7) 06/19/20 10:46 ABG pH 7.382 (7.320-7.450) 07/18/20 04:24 POC ABG pCO2 44.1 mmHg (32.0-48.0) 07/18/20 04:24 ABG pCO2 47.0 mm Hg 07/05/20 13:05 ABG Oxyhemoglobin 92.6 (94-98) L 06/23/20 12:34 POC ABG pO2 86.8 mmHg (83-108) 07/18/20 04:24 ABG pO2 78.3 mm Hg (80.0-90.0) L 07/05/20 13:05 POC ABG HCO3 25.6 07/18/20 04:24 ABG HCO3 23.4 mmol/L (20.0-26.0) 07/05/20 13:05 ABG O2 Saturation 96.1 % (95.0-99.0) 07/05/20 13:05 ABG O2 Content 0.3 (0.0-44) 07/05/20 13:05 POC ABG Base Excess 0.4 07/18/20 04:24 ABG Base Excess -2.6 mmol/L (-2.0-3.0) L 07/05/20 13:05 ABG Hemoglobin 8.8 (12.0-17.5) L 07/18/20 04:24 ABG Carboxyhemoglobin 1.7 % (0.0-5.0) 07/05/20 13:05 ABG Methemoglobin 0.2 % (0.0-1.5) 07/05/20 13:05 VBG pH 7.152 (7.320-7.420) L* 05/28/20 13:47 ABG Sodium 131.6 mmol/L (136.0-145.0) L 07/18/20 04:24 ABG Potassium 4.9 mmol/L (3.40-4.50) H 07/18/20 04:24 ABG Chloride 104.0 mmol/L (98-107) 07/18/20 04:24 ABG Glucose 131 mg/dL (65-95) H 07/18/20 04:24 Carboxyhemoglobin 0.5 (0.5-1.5) 06/23/20 12:34 Oxyhemoglobin 97.4 % (95.0-99.0) 07/05/20 13:05 FiO2 30.0 07/18/20 04:24 Sodium 132 mmol/L (137-145) L 07/26/20 04:22 Potassium 5.0 mmol/L (3.6-5.0) 07/26/20 04:22 Chloride 96.2 mmol/L (98-107) L 07/26/20 04:22 Carbon Dioxide 21 mmol/L (22-30) L 07/26/20 04:22 Anion Gap 20 mmol/L 07/26/20 04:22 BUN 99 mg/dL (7-17) H 07/26/20 04:22 Creatinine 2.5 mg/dL (0.6-1.2) H 07/26/20 04:22 Estimated GFR 20 ml/min 07/26/20 04:22 BUN/Creatinine Ratio 40 % 07/26/20 04:22 Glucose 132 mg/dL (65-100) H 07/26/20 04:22 POC Glucose 110 (70-105) H 07/26/20 05:58 Lactic Acid 0.60 mmol/L (0.7-2.0) L 06/27/20 05:00 Calcium 8.2 mg/dL (8.4-10.2) L 07/26/20 04:22 Ferritin 223.6 ng/mL (10.0-200.0) H 06/29/20 14:45 Magnesium 2.60 mg/dL (1.7-2.3) H 07/24/20 04:29 Lactate Dehydrogenase 367 units/L (91-180) H 06/29/20 14:45 Total Bilirubin 0.20 mg/dL (0.1-1.2) 07/23/20 19:23 AST 35 units/L (5-40) 07/23/20 19:23 ALT 14 units/L (7-56) 07/23/20 19:23 Alkaline Phosphatase 124 units/L (35-129) 07/23/20 19:23 C-Reactive Protein 3.60 mg/dL (0.00-1.30) H 06/29/20 14:45 Total Creatine Kinase 300 units/L (30-135) H 07/01/20 06:01 CK-MB (CK-2) 2.0 ng/mL (0.0-4.0) 07/01/20 06:01 CK-MB (CK-2) Rel Index 0.6 (0-4) 07/01/20 06:01 Troponin T 0.067 ng/mL (0.00-0.029) H 07/01/20 06:01 Total Protein 6.3 g/dL (6.3-8.2) 07/23/20 19: Albumin 2.2 g/dL (3.9-5) L 07/23/20 19: Albumin/Globulin Ratio 0.5 % 07/23/20 19:23 Triglycerides 142 mg/dL (2-149) 07/01/20 06:01 Cholesterol 137 mg/dL (50-199) 07/01/20 06:01 LDL Cholesterol Direct 62 mg/dL (50-130) 07/01/20 06:01 HDL Cholesterol 61 mg/dL (40-59) H 07/01/20 06:01 Cholesterol/HDL Ratio 2.24 % 07/01/20 06:01 Procalcitonin 0.18 ng/mL (<0.15) 07/14/20 04:55 Arterial Blood Glucose 131 mg/dL (65-95) H 07/18/20 04:24 Arterial Blood Ionized Calcium 5.1 mg/dL (4.6-5.3) 07/18/20 04:24 Urine Color Yellow (Yellow) 06/06/20 04:00 Urine Turbidity Cloudy (Clear) 06/06/20 04:00 Urine pH 5.0 (5.0-7.0) 06/06/20 04:00 Ur Specific Totz 1.012 (1.003-1.030) 06/06/20 04:00 Urine Protein 100 mg/dl mg/dL (Negative) 06/06/20 04:00 Urine Glucose (UA) 50 mg/dL (Negative) 06/06/20 04:00 Urine Ketones Neg mg/dL (Negative) 06/06/20 04:00 Urine Blood Sm (Negative) 06/06/20 04:00 Urine Nitrite Neg (Negative) 06/06/20 04:00 Urine Bilirubin Neg (Negative) 06/06/20 04:00 Urine Urobilinogen < 2.0 mg/dL (<2.0) 06/06/20 04:00 Ur Leukocyte Esterase Neg (Negative) 06/06/20 04:00 Urine WBC (Auto) 15.0 /HPF (0.0-6.0) H 06/06/20 04:00 Urine RBC (Auto) 23.0 /HPF (0.0-6.0) 06/06/20 04:00 U Epithel Cells (Auto) 8.0 /HPF (0-13.0) 06/06/20 04:00 Urine Bacteria (Auto) 2+ /HPF (Negative) 06/06/20 04:00 Amorphous Crystals 1+ 06/06/20 04:00 Hyaline Casts 16 /LPF 06/06/20 04:00 Urine Mucus 2+ /HPF 06/06/20 04:00 Urine Yeast (Budding) 2+ /HPF 06/03/20 Unknown Urine Creatinine 33.3 mg/dL (0.1-20.0) H 07/06/20 13:20 Urine Sodium 21 mmol/L 07/06/20 13:20 Urine Total Protein 196 mg/dL (5-11.8) H 06/06/20 04:00 Nasal Screen MRSA (PCR) Negative (Negative) 06/29/20 08:30 Phenytoin 9.4 ug/mL (10.0-20.0) L 07/24/20 04:29 Coronavirus (PCR) Positive (Negative) A 07/14/20 08:04 Blood Type A POSITIVE 07/05/20 02:30 Antibody Screen Negative 07/05/20 02:30 Crossmatch See Detail 07/05/20 02:30 - Diagnostic Impressions Diagnostic Impressions: Echocardiogram Limited Views 05/29/20 13:52 Transthoracic Echocardiogram Indication: Pulm Embolus BP: 169/76 HR: 85 Conclusions *Limited study for RV size post cardiopulmonar arrest. *RV is only slightly dilated, no significant difference from prior echo 05/13/2020. *Global left ventricular systolic function is at the lower limits of normal. *The estimated ejection fraction is 45-50%. *Mild to moderate concentric left ventricular hypertrophy is observed. *The left and right atria are both mild to moderately dilated. Findings Left Ventricle: The left ventricular chamber size is mildly dilated. Mild to moderate concentric left ventricular hypertrophy is observed. Global left ventricular systolic function is at the lower limits of normal. The estimated ejection fraction is 45-50%. Left Atrium: The left atrium is mild to moderately dilated. Right Ventricle: The right ventricle is slightly dilated. Right Atrium: The right atrium is mild to moderately dilated. Aortic Valve: The aortic valve leaflets are moderately thickened. Mitral Valve: There is mitral annular calcification. The mitral valve leaflets are moderately thickened. Tricuspid Valve: The tricuspid valve leaflets are mildly thickened. Pericardium: A trivial pericardial effusion is visualized. NDUM: 05/29/20 1808 Amended Report Transthoracic Echocardiogram Indication: Pulm Embolus BP: 169/76 HR: 85 Conclusions *Limited study for RV size post cardiopulmonary arrest. *RV is only slightly dilated, no significant difference from prior echo 05/13/2020. *Global left ventricular systolic function is at the lower limits of normal. *The estimated ejection fraction is 45-50%. *Mild to moderate concentric left ventricular hypertrophy is observed. *The left and right atria are both mild to moderately dilated. Findings Left Ventricle: The left ventricular chamber size is mildly dilated. Mild to moderate concentric left ventricular hypertrophy is observed. Global left ventricular systolic function is at the lower limits of normal. The estimated ejection fraction is 45-50%. Left Atrium: The left atrium is mild to moderately dilated. Right Ventricle: The right ventricle is slightly dilated. Right Atrium: The right atrium is mild to moderately dilated. Aortic Valve: The aortic valve leaflets are moderately thickened. Mitral Valve: There is mitral annular calcification. The mitral valve leaflets are moderately thickened. Tricuspid Valve: The tricuspid valve leaflets are mildly thickened. Pericardium: A trivial pericardial effusion is visualized. Helm/IV: Voiding Method Indwelling Catheter IV Catheter Type [Left Forearm INT / Saline Lock ] IV Catheter Type [Left Wrist] INT / Saline Lock IV Catheter Type [Left Upper Peripheral IV arm] IV Catheter Type [Right CVL Internal Jugular] IV Catheter Type [Right Hand] Peripheral IV IV Catheter Type [Right Wrist] Not found on patient IV Catheter Type [Left Hand] INT / Saline Lock IV Catheter Type [Left INT / Saline Lock Antecubital] IV Catheter Type [Right Peripheral IV Forearm] IV Catheter Type [Left Leg] Intra-osseous Active Medications - Current Medications Current Medications: Generic Name Dose Route Start Last Admin Trade Name Freq PRN Reason Stop Dose Admin Acetaminophen 650 mg 06/09/20 10:57 06/29/20 21:18 Tylenol FEEDTUBE 650 mg Q6H PRN Administration Fever >101 Amlodipine Besylate 10 mg 06/02/20 11:00 07/26/20 09:30 Amlodipine PO 10 mg DAILY NELSON Administration Lipase/Protease/Amylase 1 each 05/29/20 13:39 07/07/20 10:[address] 10,500 Unit FEEDTUBE 1 each PRN PRN Administration For Clogged Feeding Tube Carvedilol 25 mg 07/20/20 11:00 07/26/20 09:31 Coreg PO 25 mg Q12HR NELSON Administration Clonidine HCl 0.3 mg 07/20/20 11:00 07/26/20 02:32 Catapres PO Not Given Q8H NELSON Furosemide 60 mg 07/25/20 11:20 07/26/20 09:30 Lasix IV 60 mg QDAY NELSON Administration Glycopyrrolate 2 mg 06/09/20 14:00 07/26/20 09:30 Glycopyrrolate PO 2 mg TID NELSON Administration Heparin Sodium (Porcine) 5,000 unit 06/30/20 14:00 07/26/20 06:05 Heparin SUB-Q 5,000 unit Q8HR NELSON Administration Hydralazine HCl 100 mg 07/14/20 14:00 07/26/20 09:21 Apresoline PO Not Given TID NELSON Hydrophilic Ointment 1 applic 05/28/20 13:49 Vaseline Lip Therapy TP Q2HR PRN Dry Lips Phenytoin 150 mg/ Sodium 103 mls @ 408 mls/hr 07/23/20 22:00 07/26/20 06:04 Chloride IV 408 mls/hr Q8HR NELSON Administration Norepinephrine 4 mg in 250 mls @ 7.5 mls/hr 07/23/20 20:00 07/24/20 07:15 Levophed Drip 4 Mg/Ns 250 Ml IV 0 mcg/min TITR NELSON 0 mls/hr Titration Protocol 2 MCG/MIN Sodium Chloride 1,000 mls @ 75 mls/hr 07/24/20 09:00 07/24/20 22:01 Nacl 0.9% 1000 Ml IV 75 mls/hr DIRECT NELSON Administration Dopamine HCl/Dextrose 800 mg in 250 mls @ 4.613 mls/hr 07/24/20 11:30 Intropin Drip 800 Mg/D5w 250 Ml IV TITR COUNTS INCLUDE 234 BEDS AT THE [facility] Protocol 2 MCG/KG/MIN Insulin Glargine 10 units 06/08/20 22:00 07/25/20 23:34 Lantus SUB-Q Not Given QHS NELSON Insulin Human Lispro 0 unit 05/29/20 18:00 07/26/20 06:14 Humalog SUB-Q Not Given Q6H COUNTS INCLUDE 234 BEDS AT THE [facility] Protocol Labetalol HCl 20 mg 06/03/20 09:00 07/21/20 05:56 Labetalol IV 20 mg Q4H PRN Administration HYPERTENSION Lansoprazole 30 mg 06/05/20 22:00 07/26/20 09:32 Prevacid Solutab FEEDTUBE 30 mg BID COUNTS INCLUDE 234 BEDS AT THE [facility] Administration Levetiracetam 1,000 mg 07/21/20 22:00 07/26/20 09:31 Keppra PO 1,000 mg BID COUNTS INCLUDE 234 BEDS AT THE [facility] Administration Minoxidil 5 mg 07/21/20 10:00 07/26/20 09:32 Loniten PO Not Given BID COUNTS INCLUDE 234 BEDS AT THE [facility] Multi-Ingred Cream/Lotion/Oil/Oint 1 applic 05/28/20 13:49 Artificial Tears Ophth Oint OU Q4HR PRN Dry Eye(s) Ondansetron HCl 4 mg 06/02/20 09:00 06/09/20 16:48 Zofran IV 4 mg Q8H PRN Administration Nausea And Vomiting Senna 17.6 mg 06/03/20 10:00 07/26/20 09:32 Senokot FEEDTUBE Not Given BID COUNTS INCLUDE 234 BEDS AT THE [facility] Simple Syrup 15 ml 05/29/20 13:39 Simple Syrup FEEDTUBE PRN PRN Hypoglycemia Simple Syrup 30 ml 05/29/20 13:39 Simple Syrup FEEDTUBE PRN PRN Hypoglycemia Sodium Bicarbonate 325 mg 05/29/20 13:39 07/07/20 10:36 Sodium Bicarbonate FEEDTUBE 325 mg PRN PRN Administration For Clogged Feeding Tube Sodium Chloride 10 ml 05/28/20 22:00 07/26/20 09:31 Sodium Chloride Flush Syringe 10 Ml IV 10 ml BID NELSON Administration Sodium Chloride 10 ml 05/28/20 19:08 06/16/20 17:50 Sodium Chloride Flush Syringe 10 Ml IV 10 ml PRN PRN Administration LINE FLUSH Nutrition/Malnutrition Assess - Dietary Evaluation Nutrition/Malnutrition Findings: Nutrition Notes Start: 05/29/20 11:45 Freq: Status: Active Protocol: Document 07/20/20 11:28 (Rec: 07/20/20 11:32 [id number]) Nutrition Notes Initial or Follow up Reassessment Current Diagnosis Acute Kidney Injury,Diabetes, Heart Failure,Respiratory Failure Other Pertinent Diagnosis COVID-19 (+), Pulmonary edema, dysphagia Current Diet Nepro at 40 ml/hr Labs/Tests BUN 86 Cr 1.7 Pertinent Medications Reviewed Height 5 ft 6 in Weight 123 kg [place] Body Weight (kg) 59.09 BMI 43.7 Weight Status Morbidly Obese Subjective/Other Information FU for TF tolerance. TF running at goal, pt tolerating . Pt unable to get PEG placed due to COVID test result. Percent of energy/protein needs met: 100%/53% Burn Absent Trauma Absent Current % PO Negligible Minimum of two criteria No physical signs of malnutrition Fluid Accumulation Mild (non-severe) #1 Nutrition Diagnosis Inadequate oral intake Diagnosis Progress(for reassessment Continues documentation) Is patient on ventilator? Yes Is Patient Ambulatory and/or Out of Bed No REE-([place]-confined to bed) 2172.576 Kcal/Kg value to use for calculation 13 Approximate Energy Requirements Using 1599 kcal/Kg Calculation Used for Recommendations Kcal/kg Additional Notes Protein needs up to 148g (up to 2.5g/kg IBW) Fluid needs 1ml/kcal Nutrition Intervention Change Diet Order: Continue Nutrition Support: Nepro at 40ml/hr Flush 150ml q4h Kcal 1,728 Protein (gm) 78 Fluid (mL) 697 Goal #1 TF tolerance Goal #2 TF to meet at least 65%-70% energy and 80% protein needs Anticipated Discharge Needs: Unable to determine at this time Follow-Up By: 07/27/20 Additional Comments FU for TF tolerance
--- NOTE | 2020-07-26 13:41 | Progress Note ---
Assessment and Plan - Patient Problems (1) Acute kidney injury (AVANI) with acute tubular necrosis (ATN) Current Visit: Yes Status: Acute Plan to address problem: With prolonged hospitalization course and worsening renal injury in the setting of worsening hemodynamics over the last 24 hours that required re-intitiation fo pressor support. Pressors have been weaned off this am. Added on gentle IVF hydration. Currently off IVF since this am secondary to normalized blood pressure parameters. Franco catheter placed for monitoring of strict I/O. Currently on lasix 60 mg daily which we will adjust to BID dosing. Overall her prognosis remains guarded/poor. (2) Hyperkalemia Current Visit: Yes Status: Acute Plan to address problem: in the setting of acute kidney injury. Medical management of hyperkalemia. Anticipate with increased distal sodium delivery with IVF, potassium secretion should enhance. Serum potassium levels stable. (3) Acute hypoxemic respiratory failure Current Visit: Yes Status: Acute Plan to address problem: management per pulmonary team. Remains intubated at this time. (4) Pneumonia due to COVID-19 virus Current Visit: Yes Status: Acute Plan to address problem: management per ID recommendations. Completed course of remdesivir and steroids. Remains on positive on repeat testing and remains in isolation protocol. Subjective Date of service: 07/26/20 Principal diagnosis: Ac hypoxemic resp failure; COVID-19; pneumonia; CHF; Pulm HTN; OHS; DM II Interval history: No acute changes. Had franco inserted, with evidence of urinary retention, as per nurse she had ~ 900 cc UOP almost immediately. No changes neurologically. Remains unresponsive, comatose off sedation. Remains intubated. Pending MRI per nursing staff. Objective - Exam Narrative Exam: patient was not directly examined secondary to preservation of PPE - Vital Signs Vital signs: Vital Signs - 12hr 07/26/20 07/26/20 07/26/20 02:00 02:32 03:00 Temperature Pulse Rate 67 69 68 Pulse Rate [ From Monitor] Respiratory 22 19 Rate Blood Pressure 156/53 162/62 O2 Sat by Pulse 97 97 Oximetry 07/26/20 07/26/20 07/26/20 04:00 05:00 05:24 Temperature 98.0 F Pulse Rate 69 68 68 Pulse Rate [ From Monitor] Respiratory 22 19 Rate Blood Pressure 159/49 161/52 161/52 O2 Sat by Pulse 97 97 96 Oximetry 07/26/20 07/26/20 07/26/20 06:00 07:00 08:00 Temperature 98.8 F Pulse Rate 67 69 69 Pulse Rate [ 69 From Monitor] Respiratory 16 20 20 Rate Blood Pressure 158/52 165/57 167/56 O2 Sat by Pulse 97 97 96 Oximetry 07/26/20 07/26/20 07/26/20 08:56 09:01 09:30 Temperature Pulse Rate 67 70 69 Pulse Rate [ From Monitor] Respiratory 29 H Rate Blood Pressure 167/56 165/43 165/43 O2 Sat by Pulse 98 95 Oximetry 07/26/20 07/26/20 07/26/20 09:31 10:00 11:00 Temperature Pulse Rate 69 69 65 Pulse Rate [ From Monitor] Respiratory 26 H 27 H Rate Blood Pressure 165/43 163/47 154/47 O2 Sat by Pulse 95 95 Oximetry 07/26/20 12:00 Temperature 98 F Pulse Rate 64 Pulse Rate [ 63 From Monitor] Respiratory 32 H Rate Blood Pressure 161/57 O2 Sat by Pulse 94 Oximetry - Lab 07/25/20 04:24 07/26/20 04:22 Most recent lab results ABG pH 7.382 (7.320-7.450) 07/18/20 04:24 ABG pCO2 47.0 mm Hg 07/05/20 13:05 ABG pO2 78.3 mm Hg (80.0-90.0) L 07/05/20 13:05 ABG HCO3 23.4 mmol/L (20.0-26.0) 07/05/20 13:05 ABG O2 Saturation 96.1 % (95.0-99.0) 07/05/20 13:05 Calcium 8.2 mg/dL (8.4-10.2) L 07/26/20 04:22 Magnesium 2.60 mg/dL (1.7-2.3) H 07/24/20 04:29 Urine Creatinine 33.3 mg/dL (0.1-20.0) H 07/06/20 13:20 Urine Sodium 21 mmol/L 07/06/20 13:20 Urine Total Protein 196 mg/dL (5-11.8) H 06/06/20 04:00 Medications & Allergies - Medications Allergies/Adverse Reactions: Allergies No Known Allergies Allergy (Verified 01/21/20 12:28) Home Medications: Home Medications Medication Instructions Recorded Confirmed Last Taken Type AtorvaSTATin [Lipitor] 20 mg PO QHS 05/12/20 05/29/20 Unknown History lisinopriL [Zestril TAB] 40 mg PO QDAY 05/12/20 05/29/20 Unknown History metFORMIN [Glucophage] 850 mg PO BID 05/12/20 05/29/20 Unknown History Acetaminophen [Acetaminophen TAB] 650 mg PO Q4H PRN tablet 05/13/20 05/29/20 Unknown Rx Dicyclomine [Bentyl] 20 mg PO BID #20 tablet 05/13/20 05/29/20 Unknown Rx Famotidine [Pepcid] 20 mg PO BID #30 tablet 05/13/20 05/29/20 Unknown Rx carvediloL [Coreg] 6.25 mg PO BID #60 05/13/20 05/29/20 Unknown Rx Active Medications: Generic Name Dose Route Start Last Admin Trade Name Freq PRN Reason Stop Dose Admin Acetaminophen 650 mg 06/09/20 10:57 06/29/20 21:18 Tylenol FEEDTUBE 650 mg Q6H PRN Administration Fever >101 Amlodipine Besylate 10 mg 06/02/20 11:00 07/26/20 09:30 Amlodipine PO 10 mg DAILY NELSON Administration Lipase/Protease/Amylase 1 each 05/29/20 13:39 07/07/20 10:[address] 10,500 Unit FEEDTUBE 1 each PRN PRN Administration For Clogged Feeding Tube Carvedilol 25 mg 07/20/20 11:00 07/26/20 09:31 Coreg PO 25 mg Q12HR NELSON Administration Clonidine HCl 0.3 mg 07/20/20 11:00 07/26/20 11:47 Catapres PO Not Given Q8H NELSON Furosemide 60 mg 07/25/20 11:20 07/26/20 09:30 Lasix IV 60 mg QDAY NELSON Administration Glycopyrrolate 2 mg 06/09/20 14:00 07/26/20 09:30 Glycopyrrolate PO 2 mg TID NELSON Administration Heparin Sodium (Porcine) 5,000 unit 06/30/20 14:00 07/26/20 06:05 Heparin SUB-Q 5,000 unit Q8HR NELSON Administration Hydralazine HCl 100 mg 07/14/20 14:00 07/26/20 09:21 Apresoline PO Not Given TID NELSON Hydrophilic Ointment 1 applic 05/28/20 13:49 Vaseline Lip Therapy TP Q2HR PRN Dry Lips Phenytoin 150 mg/ Sodium 103 mls @ 408 mls/hr 07/23/20 22:00 07/26/20 06:04 Chloride IV 408 mls/hr Q8HR NELSON Administration Norepinephrine 4 mg in 250 mls @ 7.5 mls/hr 07/23/20 20:00 07/24/20 07:15 Levophed Drip 4 Mg/Ns 250 Ml IV 0 mcg/min TITR NELSON 0 mls/hr Titration Protocol 2 MCG/MIN Sodium Chloride 1,000 mls @ 75 mls/hr 07/24/20 09:00 07/24/20 22:01 Nacl 0.9% 1000 Ml IV 75 mls/hr DIRECT NELSON Administration Dopamine HCl/Dextrose 800 mg in 250 mls @ 4.613 mls/hr 07/24/20 11:30 Intropin Drip 800 Mg/D5w 250 Ml IV TITR NELSON Protocol 2 MCG/KG/MIN Insulin Glargine 10 units 06/08/20 22:00 07/25/20 23:34 Lantus SUB-Q Not Given QHS [facility] Insulin Human Lispro 0 unit 05/29/20 18:00 07/26/20 12:12 Humalog SUB-Q Not Given Q6H [facility] Protocol Labetalol HCl 20 mg 06/03/20 09:00 07/21/20 05:56 Labetalol IV 20 mg Q4H PRN Administration HYPERTENSION Lansoprazole 30 mg 06/05/20 22:00 07/26/20 09:32 Prevacid Solutab FEEDTUBE 30 mg BID NELSON Administration Levetiracetam 1,000 mg 07/21/20 22:00 07/26/20 09:31 Keppra PO 1,000 mg BID NELSON Administration Minoxidil 5 mg 07/21/20 10:00 07/26/20 09:32 Loniten PO Not Given BID [facility] Multi-Ingred Cream/Lotion/Oil/Oint 1 applic 05/28/20 13:49 Artificial Tears Ophth Oint OU Q4HR PRN Dry Eye(s) Ondansetron HCl 4 mg 06/02/20 09:00 06/09/20 16:48 Zofran IV 4 mg Q8H PRN Administration Nausea And Vomiting Senna 17.6 mg 06/03/20 10:00 07/26/20 09:32 Senokot FEEDTUBE Not Given BID NELSON Simple Syrup 15 ml 05/29/20 13:39 Simple Syrup FEEDTUBE PRN PRN Hypoglycemia Simple Syrup 30 ml 05/29/20 13:39 Simple Syrup FEEDTUBE PRN PRN Hypoglycemia Sodium Bicarbonate 325 mg 05/29/20 13:39 07/07/20 10:36 Sodium Bicarbonate FEEDTUBE 325 mg PRN PRN Administration For Clogged Feeding Tube Sodium Chloride 10 ml 05/28/20 22:00 07/26/20 09:31 Sodium Chloride Flush Syringe 10 Ml IV 10 ml BID NELSON Administration Sodium Chloride 10 ml 05/28/20 19:08 06/16/20 17:50 Sodium Chloride Flush Syringe 10 Ml IV 10 ml PRN PRN Administration LINE FLUSH
--- NOTE | 2020-07-26 13:46 | Progress Note ---
Assessment and Plan Acute hypoxemic respiratory failure on MVS Coronavirus-19 infection. Bilateral pulmonary infiltrates, bilateral pneumonia plus likely element of Pulmonary edema. Bilateral pulmonary edema. Bilateral pleural effusions. History of congestive heart failure. Morbid obesity. History of pulmonary hypertension. History of hypertension. Diabetes. Obesity hypoventilation syndrome. Elevated serum inflammatory markers to include D-dimers and LDH levels. Hyperkalemia at presentation. Metabolic acidosis. Oropharyngeal dysphagia. (AMS remains rate limiting factor to safe extubation; she will need a tracheo stomy) - reduced Clonidine to 0.1mh q8h as doses being held - azotemia per nephrology team, may need LUNG PULLER ultimately - prn CXR's and ABG's at this point - repeat EEG next per neurology rec's - AED's per neurology - surgery evaluation ongoing for trach +/- PEG (await negative COVID PCR result) - continue care as below otherwise; - GI evaluation ongoing - continue Modafinil re: lethargy / somnolence - continue daytime PSV trials as tolerated - Daily SAT and SBT assessment as tolerated - continue to wean supplemental oxygen for target O2 sat's > 90% acutely - VAP bundle addressed - continue lung protective strategies - continue bronchodilators with pulmonary hygiene per RT - wean per pulmonary driven protocols otherwise - continue accuchecks resumed with glycemic control per SSI (While critically ill target blood glucose of 140-180 mg/dL; avoid hypoglycemia) - sedation prn for target RASS 0 to -1 - continue to avoid benzodiazepine's, reduce the possibility of delirium - AB's per ID rec's (following clinically of AB's at this time) - continue enteral nutrition at goal rate as tolerated - AED's per neurology - prn analgesia per CPOT score - Maintenance of sleep-wake cycle, avoid delirium - continue enteral nutritional support at goal rate as tolerated - G.I. & VTE prophylaxis with heparin & famotidine - PT/OT/ROM exercises - continue mobility protocols for pressure ulcer prophylaxis - Monitor hemodynamics closely - continue other care per attending / other consultants - discharge planning ongoing concurrently (LTAC evaluation is appropriate) .... Re-evaluate in am & prn CONDITION: CRITICAL PROGNOSIS: GUARDED CODE STATUS: FULL CODE The high probability of a clinically significant, sudden or life-threatening deterioration of the [respiratory, cardiovascular, GI & neurologic] system(s) required my full and direct attention, intervention and personal management. The aggregate critical care time was [35] minutes without overlap. Time includes spent on; [x] Data Review and interpretation [x] Patient assessment and monitoring of vital signs [x] Documentation [x] Medication orders and management Subjective Date of service: 07/26/20 Principal diagnosis: Ac hypoxemic resp failure; COVID-19; pneumonia; CHF; Pulm HTN; OHS; DM II Interval history: Patient is seen today for: Ac hypoxemic resp failure; Coronavirus-19 infection; pneumonia; Pulmonary edema; Bilateral pleural effusions; CHF; Morbid obesity; pulmonary hypertension; OHS; DM II Seen and examined at bedside; 24hour events reviewed; nursing and respiratory care staff consulted; no adverse overnight events reported to me; resting peace fully in bed; remains on MVS; AMS is persistent but perhaps somewhat more facial grimacing; no active seizures clinically; no emesis or overt aspiration Objective Vital Signs - 12hr 07/26/20 07/26/20 07/26/20 02:00 02:32 03:00 Temperature Pulse Rate 67 69 68 Pulse Rate [ From Monitor] Respiratory 22 19 Rate Blood Pressure 156/53 162/62 O2 Sat by Pulse 97 97 Oximetry 07/26/20 07/26/20 07/26/20 04:00 05:00 05:24 Temperature 98.0 F Pulse Rate 69 68 68 Pulse Rate [ From Monitor] Respiratory 22 19 Rate Blood Pressure 159/49 161/52 161/52 O2 Sat by Pulse 97 97 96 Oximetry 07/26/20 07/26/20 07/26/20 06:00 07:00 08:00 Temperature 98.8 F Pulse Rate 67 69 69 Pulse Rate [ 69 From Monitor] Respiratory 16 20 20 Rate Blood Pressure 158/52 165/57 167/56 O2 Sat by Pulse 97 97 96 Oximetry 07/26/20 07/26/20 07/26/20 08:56 09:01 09:30 Temperature Pulse Rate 67 70 69 Pulse Rate [ From Monitor] Respiratory 29 H Rate Blood Pressure 167/56 165/43 165/43 O2 Sat by Pulse 98 95 Oximetry 07/26/20 07/26/20 07/26/20 09:31 10:00 11:00 Temperature Pulse Rate 69 69 65 Pulse Rate [ From Monitor] Respiratory 26 H 27 H Rate Blood Pressure 165/43 163/47 154/47 O2 Sat by Pulse 95 95 Oximetry 07/26/20 12:00 Temperature 98 F Pulse Rate 64 Pulse Rate [ 63 From Monitor] Respiratory 32 H Rate Blood Pressure 161/57 O2 Sat by Pulse 94 Oximetry Constitutional: no acute distress, other (elderly looking female with mildly increased resp effort at rest) Eyes: non-icteric ENT: oropharynx dry, other (ETT 23-24 cm AYAN) Neck: supple, no lymphadenopathy, no JVD, other (large neck circumference) Effort: mildly labored Ascultation: Bilateral: diminished breath sounds, rhonchi Percussion: Bilateral: not dull Cardiovascular: regular rate and rhythm, other (S1,S2) Gastrointestinal: normoactive bowel sounds, soft, non-tender, non-distended Integumentary: normal Extremities: no cyanosis, pink and warm, pulses normal, no ischemia or petechiae, edema (trace) Neurologic: pupils equal and round, unable to assess, other (lethargic to obtunded) Psychiatric: other (unable to assess re: AMS) CBC and BMP: 07/28/20 04:30 07/28/20 04:30 ABG, PT/INR, D-dimer: ABG ABG pH 7.382 (7.320-7.450) 07/18/20 04:24 POC ABG pCO2 44.1 mmHg (32.0-48.0) 07/18/20 04:24 ABG pCO2 47.0 mm Hg 07/05/20 13:05 POC ABG pO2 86.8 mmHg (83-108) 07/18/20 04:24 ABG pO2 78.3 mm Hg (80.0-90.0) L 07/05/20 13:05 POC ABG HCO3 25.6 07/18/20 04:24 ABG O2 Saturation 96.1 % (95.0-99.0) 07/05/20 13:05 PT/INR, D-dimer PT 14.2 Sec. (12.2-14.9) 05/29/20 15:10 INR 1.08 (0.87-1.13) 05/29/20 15:10 D-Dimer 2310.15 ng/mlDDU (0-234) H 06/29/20 14:45 Abnormal lab findings: Abnormal Labs 05/28/20 05/28/20 05/28/20 13:29 13:47 13:47 WBC RBC Hgb Hct MCHC RDW 15.3 H Lymph % (Auto) [place] % (Auto) Eos % (Auto) Lymph # [place] # Lymph # (Auto) [place] # (Auto) Eos # (Auto) Seg Neutrophils % Seg Neuts % (Manual) Lymphocytes % (Manual) Seg Neutrophils # Seg Neutrophils # Man Lymphocytes # (Manual) Monocytes % (Manual) Eosinophils % (Manual) Monocytes # (Manual) Eosinophils # (Manual) D-Dimer Heparin Anti-Xa Level ABG pH POC ABG pCO2 POC ABG pO2 ABG pO2 ABG HCO3 ABG O2 Saturation ABG Base Excess ABG Hemoglobin ABG Oxyhemoglobin VBG pH ABG Sodium ABG Potassium ABG Glucose Oxyhemoglobin Sodium Potassium 6.6 H* Chloride 109.2 H Carbon Dioxide 17 L BUN 29 H Creatinine 1.3 H Glucose 265 H POC Glucose 248 H Lactic Acid Calcium 8.1 L Ferritin AST 63 H Alkaline Phosphatase Magnesium Lactate Dehydrogenase Total Creatine Kinase 301 H CK-MB (CK-2) 4.3 H C-Reactive Protein Total Protein 5.4 L Albumin 2.6 L Troponin T HDL Cholesterol Arterial Blood Glucose Urine WBC (Auto) Urine Creatinine Urine Total Protein Phenytoin Coronavirus (PCR) Crossmatch 05/28/20 05/28/20 05/28/20 13:47 13:47 14:46 WBC RBC Hgb Hct MCHC RDW Lymph % (Auto) [place] % (Auto) Eos % (Auto) Lymph # [place] # Lymph # (Auto) [place] # (Auto) Eos # (Auto) Seg Neutrophils % Seg Neuts % (Manual) Lymphocytes % (Manual) Seg Neutrophils # Seg Neutrophils # Man Lymphocytes # (Manual) Monocytes % (Manual) Eosinophils % (Manual) Monocytes # (Manual) Eosinophils # (Manual) D-Dimer Heparin Anti-Xa Level ABG pH POC ABG pCO2 POC ABG pO2 ABG pO2 ABG HCO3 ABG O2 Saturation ABG Base Excess ABG Hemoglobin ABG Oxyhemoglobin VBG pH 7.152 L* ABG Sodium ABG Potassium ABG Glucose Oxyhemoglobin Sodium Potassium 7.2 H* Chloride Carbon Dioxide BUN Creatinine Glucose POC Glucose Lactic Acid 3.40 H* Calcium Ferritin AST Alkaline Phosphatase Magnesium Lactate Dehydrogenase Total Creatine Kinase CK-MB (CK-2) C-Reactive Protein Total Protein Albumin Troponin T HDL Cholesterol Arterial Blood Glucose Urine WBC (Auto) Urine Creatinine Urine Total Protein Phenytoin Coronavirus (PCR) Crossmatch 05/28/20 05/28/20 05/28/20 15:33 15:33 15:51 WBC RBC Hgb Hct MCHC RDW Lymph % (Auto) [place] % (Auto) Eos % (Auto) Lymph # [place] # Lymph # (Auto) [place] # (Auto) Eos # (Auto) Seg Neutrophils % Seg Neuts % (Manual) Lymphocytes % (Manual) Seg Neutrophils # Seg Neutrophils # Man Lymphocytes # (Manual) Monocytes % (Manual) Eosinophils % (Manual) Monocytes # (Manual) Eosinophils # (Manual) D-Dimer 8780.43 H Heparin Anti-Xa Level ABG pH 7.284 L POC ABG pCO2 POC ABG pO2 ABG pO2 273.0 H ABG HCO3 ABG O2 Saturation 99.4 H ABG Base Excess -6.1 L ABG Hemoglobin 17.2 H ABG Oxyhemoglobin VBG pH ABG Sodium ABG Potassium ABG Glucose Oxyhemoglobin Sodium Potassium Chloride Carbon Dioxide BUN Creatinine Glucose 152 H POC Glucose Lactic Acid Calcium Ferritin AST Alkaline Phosphatase Magnesium Lactate Dehydrogenase 365 H Total Creatine Kinase CK-MB (CK-2) C-Reactive Protein Total Protein Albumin Troponin T HDL Cholesterol Arterial Blood Glucose Urine WBC (Auto) Urine Creatinine Urine Total Protein Phenytoin Coronavirus (PCR) Crossmatch 05/28/20 05/28/20 05/28/20 16:30 20:41 23:20 WBC RBC Hgb Hct MCHC RDW Lymph % (Auto) [place] % (Auto) Eos % (Auto) Lymph # [place] # Lymph # (Auto) [place] # (Auto) Eos # (Auto) Seg Neutrophils % Seg Neuts % (Manual) Lymphocytes % (Manual) Seg Neutrophils # Seg Neutrophils # Man Lymphocytes # (Manual) Monocytes % (Manual) Eosinophils % (Manual) Monocytes # (Manual) Eosinophils # (Manual) D-Dimer Heparin Anti-Xa Level ABG pH POC ABG pCO2 POC ABG pO2 ABG pO2 ABG HCO3 ABG O2 Saturation ABG Base Excess ABG Hemoglobin ABG Oxyhemoglobin VBG pH ABG Sodium ABG Potassium ABG Glucose Oxyhemoglobin Sodium Potassium Chloride Carbon Dioxide BUN Creatinine Glucose POC Glucose 225 H 224 H Lactic Acid Calcium Ferritin AST Alkaline Phosphatase Magnesium Lactate Dehydrogenase Total Creatine Kinase CK-MB (CK-2) C-Reactive Protein Total Protein Albumin Troponin T HDL Cholesterol Arterial Blood Glucose Urine WBC (Auto) 17.0 H Urine Creatinine Urine Total Protein Phenytoin Coronavirus (PCR) Crossmatch 05/28/20 05/29/20 05/29/20 Unknown 04:35 04:43 WBC RBC 3.48 L Hgb 9.8 L Hct 29.4 L MCHC RDW 16.0 H Lymph % (Auto) 7.4 L [place] % (Auto) Eos % (Auto) Lymph # 0.7 L [place] # Lymph # (Auto) [place] # (Auto) Eos # (Auto) Seg Neutrophils % 89.1 H Seg Neuts % (Manual) Lymphocytes % (Manual) Seg Neutrophils # 8.1 H Seg Neutrophils # Man Lymphocytes # (Manual) Monocytes % (Manual) Eosinophils % (Manual) Monocytes # (Manual) Eosinophils # (Manual) D-Dimer Heparin Anti-Xa Level ABG pH POC ABG pCO2 POC ABG pO2 ABG pO2 ABG HCO3 19.3 L ABG O2 Saturation ABG Base Excess -4.5 L ABG Hemoglobin 9.7 L ABG Oxyhemoglobin VBG pH ABG Sodium ABG Potassium ABG Glucose Oxyhemoglobin Sodium Potassium Chloride Carbon Dioxide BUN Creatinine Glucose POC Glucose Lactic Acid Calcium Ferritin AST Alkaline Phosphatase Magnesium Lactate Dehydrogenase Total Creatine Kinase CK-MB (CK-2) C-Reactive Protein Total Protein Albumin Troponin T HDL Cholesterol Arterial Blood Glucose Urine WBC (Auto) Urine Creatinine Urine Total Protein Phenytoin Coronavirus (PCR) Positive A Crossmatch 05/29/20 05/29/20 05/29/20 04:43 15:10 17:17 WBC RBC Hgb 9.3 L Hct 28.7 L MCHC RDW Lymph % (Auto) [place] % (Auto) Eos % (Auto) Lymph # [place] # Lymph # (Auto) [place] # (Auto) Eos # (Auto) Seg Neutrophils % Seg Neuts % (Manual) Lymphocytes % (Manual) Seg Neutrophils # Seg Neutrophils # Man Lymphocytes # (Manual) Monocytes % (Manual) Eosinophils % (Manual) Monocytes # (Manual) Eosinophils # (Manual) D-Dimer Heparin Anti-Xa Level ABG pH POC ABG pCO2 POC ABG pO2 ABG pO2 ABG HCO3 ABG O2 Saturation ABG Base Excess ABG Hemoglobin ABG Oxyhemoglobin VBG pH ABG Sodium ABG Potassium ABG Glucose Oxyhemoglobin Sodium Potassium Chloride 110.2 H Carbon Dioxide 18 L BUN 32 H Creatinine 1.4 H Glucose 180 H POC Glucose 147 H Lactic Acid Calcium Ferritin AST Alkaline Phosphatase Magnesium Lactate Dehydrogenase Total Creatine Kinase CK-MB (CK-2) C-Reactive Protein Total Protein Albumin Troponin T HDL Cholesterol Arterial Blood Glucose Urine WBC (Auto) Urine Creatinine Urine Total Protein Phenytoin Coronavirus (PCR) Crossmatch 05/30/20 05/30/20 05/30/20 00:08 00:12 04:15 WBC RBC Hgb Hct MCHC RDW Lymph % (Auto) [place] % (Auto) Eos % (Auto) Lymph # [place] # Lymph # (Auto) [place] # (Auto) Eos # (Auto) Seg Neutrophils % Seg Neuts % (Manual) Lymphocytes % (Manual) Seg Neutrophils # Seg Neutrophils # Man Lymphocytes # (Manual) Monocytes % (Manual) Eosinophils % (Manual) Monocytes # (Manual) Eosinophils # (Manual) D-Dimer Heparin Anti-Xa Level 0.71 H ABG pH 7.460 H POC ABG pCO2 POC ABG pO2 ABG pO2 106.0 H ABG HCO3 18.9 L ABG O2 Saturation ABG Base Excess -4.4 L ABG Hemoglobin 6.8 L ABG Oxyhemoglobin VBG pH ABG Sodium ABG Potassium ABG Glucose Oxyhemoglobin Sodium Potassium Chloride Carbon Dioxide BUN Creatinine Glucose POC Glucose 195 H Lactic Acid Calcium Ferritin AST Alkaline Phosphatase Magnesium Lactate Dehydrogenase Total Creatine Kinase CK-MB (CK-2) C-Reactive Protein Total Protein Albumin Troponin T HDL Cholesterol Arterial Blood Glucose Urine WBC (Auto) Urine Creatinine Urine Total Protein Phenytoin Coronavirus (PCR) Crossmatch 05/30/20 05/30/20 05/30/20 06:07 08:37 12:33 WBC RBC Hgb Hct MCHC RDW Lymph % (Auto) [place] % (Auto) Eos % (Auto) Lymph # [place] # Lymph # (Auto) [place] # (Auto) Eos # (Auto) Seg Neutrophils % Seg Neuts % (Manual) Lymphocytes % (Manual) Seg Neutrophils # Seg Neutrophils # Man Lymphocytes # (Manual) Monocytes % (Manual) Eosinophils % (Manual) Monocytes # (Manual) Eosinophils # (Manual) D-Dimer Heparin Anti-Xa Level 0.85 H ABG pH POC ABG pCO2 POC ABG pO2 ABG pO2 ABG HCO3 ABG O2 Saturation ABG Base Excess ABG Hemoglobin ABG Oxyhemoglobin VBG pH ABG Sodium ABG Potassium ABG Glucose Oxyhemoglobin Sodium Potassium Chloride Carbon Dioxide BUN Creatinine Glucose POC Glucose 182 H 187 H Lactic Acid Calcium Ferritin AST Alkaline Phosphatase Magnesium Lactate Dehydrogenase Total Creatine Kinase CK-MB (CK-2) C-Reactive Protein Total Protein Albumin Troponin T HDL Cholesterol Arterial Blood Glucose Urine WBC (Auto) Urine Creatinine Urine Total Protein Phenytoin Coronavirus (PCR) Crossmatch 05/30/20 05/30/20 05/30/20 15:58 17:57 23:36 WBC RBC Hgb Hct MCHC RDW Lymph % (Auto) [place] % (Auto) Eos % (Auto) Lymph # [place] # Lymph # (Auto) [place] # (Auto) Eos # (Auto) Seg Neutrophils % Seg Neuts % (Manual) Lymphocytes % (Manual) Seg Neutrophils # Seg Neutrophils # Man Lymphocytes # (Manual) Monocytes % (Manual) Eosinophils % (Manual) Monocytes # (Manual) Eosinophils # (Manual) D-Dimer Heparin Anti-Xa Level 1.03 H ABG pH POC ABG pCO2 POC ABG pO2 ABG pO2 ABG HCO3 ABG O2 Saturation ABG Base Excess ABG Hemoglobin ABG Oxyhemoglobin VBG pH ABG Sodium ABG Potassium ABG Glucose Oxyhemoglobin Sodium Potassium Chloride Carbon Dioxide BUN Creatinine Glucose POC Glucose 208 H 185 H Lactic Acid Calcium Ferritin AST Alkaline Phosphatase Magnesium Lactate Dehydrogenase Total Creatine Kinase CK-MB (CK-2) C-Reactive Protein Total Protein Albumin Troponin T HDL Cholesterol Arterial Blood Glucose Urine WBC (Auto) Urine Creatinine Urine Total Protein Phenytoin Coronavirus (PCR) Crossmatch 05/31/20 05/31/20 05/31/20 02:16 03:55 06:16 WBC RBC Hgb 9.2 L Hct 27.5 L MCHC RDW Lymph % (Auto) [place] % (Auto) Eos % (Auto) Lymph # [place] # Lymph # (Auto) [place] # (Auto) Eos # (Auto) Seg Neutrophils % Seg Neuts % (Manual) Lymphocytes % (Manual) Seg Neutrophils # Seg Neutrophils # Man Lymphocytes # (Manual) Monocytes % (Manual) Eosinophils % (Manual) Monocytes # (Manual) Eosinophils # (Manual) D-Dimer Heparin Anti-Xa Level ABG pH POC ABG pCO2 POC ABG pO2 ABG pO2 94.7 H ABG HCO3 18.6 L ABG O2 Saturation ABG Base Excess -5.5 L ABG Hemoglobin 7.9 L ABG Oxyhemoglobin VBG pH ABG Sodium ABG Potassium ABG Glucose Oxyhemoglobin Sodium Potassium Chloride Carbon Dioxide BUN Creatinine Glucose POC Glucose 160 H Lactic Acid Calcium Ferritin AST Alkaline Phosphatase Magnesium Lactate Dehydrogenase Total Creatine Kinase CK-MB (CK-2) C-Reactive Protein Total Protein Albumin Troponin T HDL Cholesterol Arterial Blood Glucose Urine WBC (Auto) Urine Creatinine Urine Total Protein Phenytoin Coronavirus (PCR) Crossmatch 05/31/20 05/31/20 05/31/20 12:20 13:03 18:13 WBC RBC Hgb Hct MCHC RDW Lymph % (Auto) [place] % (Auto) Eos % (Auto) Lymph # [place] # Lymph # (Auto) [place] # (Auto) Eos # (Auto) Seg Neutrophils % Seg Neuts % (Manual) Lymphocytes % (Manual) Seg Neutrophils # Seg Neutrophils # Man Lymphocytes # (Manual) Monocytes % (Manual) Eosinophils % (Manual) Monocytes # (Manual) Eosinophils # (Manual) D-Dimer Heparin Anti-Xa Level ABG pH POC ABG pCO2 POC ABG pO2 ABG pO2 ABG HCO3 ABG O2 Saturation ABG Base Excess ABG Hemoglobin ABG Oxyhemoglobin VBG pH ABG Sodium ABG Potassium ABG Glucose Oxyhemoglobin Sodium Potassium Chloride Carbon Dioxide 18 L BUN 48 H Creatinine 1.6 H Glucose 115 H POC Glucose 128 H 159 H Lactic Acid Calcium 8.3 L Ferritin AST Alkaline Phosphatase Magnesium Lactate Dehydrogenase Total Creatine Kinase CK-MB (CK-2) C-Reactive Protein Total Protein 5.4 L Albumin 2.4 L Troponin T HDL Cholesterol Arterial Blood Glucose Urine WBC (Auto) Urine Creatinine Urine Total Protein Phenytoin Coronavirus (PCR) Crossmatch 05/31/20 06/01/20 06/01/20 23:51 04:00 05:48 WBC RBC Hgb Hct MCHC RDW Lymph % (Auto) [place] % (Auto) Eos % (Auto) Lymph # [place] # Lymph # (Auto) [place] # (Auto) Eos # (Auto) Seg Neutrophils % Seg Neuts % (Manual) Lymphocytes % (Manual) Seg Neutrophils # Seg Neutrophils # Man Lymphocytes # (Manual) Monocytes % (Manual) Eosinophils % (Manual) Monocytes # (Manual) Eosinophils # (Manual) D-Dimer Heparin Anti-Xa Level ABG pH POC ABG pCO2 POC ABG pO2 ABG pO2 109.8 H ABG HCO3 18.8 L ABG O2 Saturation ABG Base Excess -5.9 L ABG Hemoglobin 7.8 L ABG Oxyhemoglobin VBG pH ABG Sodium ABG Potassium ABG Glucose Oxyhemoglobin Sodium Potassium Chloride Carbon Dioxide BUN Creatinine Glucose POC Glucose 171 H 133 H Lactic Acid Calcium Ferritin AST Alkaline Phosphatase Magnesium Lactate Dehydrogenase Total Creatine Kinase CK-MB (CK-2) C-Reactive Protein Total Protein Albumin Troponin T HDL Cholesterol Arterial Blood Glucose Urine WBC (Auto) Urine Creatinine Urine Total Protein Phenytoin Coronavirus (PCR) Crossmatch 06/01/20 06/01/20 06/02/20 12:28 17:29 00:08 WBC RBC Hgb Hct MCHC RDW Lymph % (Auto) [place] % (Auto) Eos % (Auto) Lymph # [place] # Lymph # (Auto) [place] # (Auto) Eos # (Auto) Seg Neutrophils % Seg Neuts % (Manual) Lymphocytes % (Manual) Seg Neutrophils # Seg Neutrophils # Man Lymphocytes # (Manual) Monocytes % (Manual) Eosinophils % (Manual) Monocytes # (Manual) Eosinophils # (Manual) D-Dimer Heparin Anti-Xa Level ABG pH POC ABG pCO2 POC ABG pO2 ABG pO2 ABG HCO3 ABG O2 Saturation ABG Base Excess ABG Hemoglobin ABG Oxyhemoglobin VBG pH ABG Sodium ABG Potassium ABG Glucose Oxyhemoglobin Sodium Potassium Chloride Carbon Dioxide BUN Creatinine Glucose POC Glucose 199 H 209 H 162 H Lactic Acid Calcium Ferritin AST Alkaline Phosphatase Magnesium Lactate Dehydrogenase Total Creatine Kinase CK-MB (CK-2) C-Reactive Protein Total Protein Albumin Troponin T HDL Cholesterol Arterial Blood Glucose Urine WBC (Auto) Urine Creatinine Urine Total Protein Phenytoin Coronavirus (PCR) Crossmatch 06/02/20 06/02/20 06/02/20 04:20 04:20 04:44 WBC RBC Hgb 10.0 L Hct MCHC RDW Lymph % (Auto) [place] % (Auto) Eos % (Auto) Lymph # [place] # Lymph # (Auto) [place] # (Auto) Eos # (Auto) Seg Neutrophils % Seg Neuts % (Manual) Lymphocytes % (Manual) Seg Neutrophils # Seg Neutrophils # Man Lymphocytes # (Manual) Monocytes % (Manual) Eosinophils % (Manual) Monocytes # (Manual) Eosinophils # (Manual) D-Dimer Heparin Anti-Xa Level 0.10 L ABG pH POC ABG pCO2 POC ABG pO2 ABG pO2 150.6 H ABG HCO3 ABG O2 Saturation ABG Base Excess -4.1 L ABG Hemoglobin 11.8 L ABG Oxyhemoglobin VBG pH ABG Sodium ABG Potassium ABG Glucose Oxyhemoglobin Sodium Potassium Chloride Carbon Dioxide BUN Creatinine Glucose POC Glucose Lactic Acid Calcium Ferritin AST Alkaline Phosphatase Magnesium Lactate Dehydrogenase Total Creatine Kinase CK-MB (CK-2) C-Reactive Protein Total Protein Albumin Troponin T HDL Cholesterol Arterial Blood Glucose Urine WBC (Auto) Urine Creatinine Urine Total Protein Phenytoin Coronavirus (PCR) Crossmatch 06/02/20 06/02/20 06/02/20 05:53 12:04 13:49 WBC RBC Hgb Hct MCHC RDW Lymph % (Auto) [place] % (Auto) Eos % (Auto) Lymph # [place] # Lymph # (Auto) [place] # (Auto) Eos # (Auto) Seg Neutrophils % Seg Neuts % (Manual) Lymphocytes % (Manual) Seg Neutrophils # Seg Neutrophils # Man Lymphocytes # (Manual) Monocytes % (Manual) Eosinophils % (Manual) Monocytes # (Manual) Eosinophils # (Manual) D-Dimer Heparin Anti-Xa Level 0.28 L ABG pH POC ABG pCO2 POC ABG pO2 ABG pO2 ABG HCO3 ABG O2 Saturation ABG Base Excess ABG Hemoglobin ABG Oxyhemoglobin VBG pH ABG Sodium ABG Potassium ABG Glucose Oxyhemoglobin Sodium Potassium Chloride Carbon Dioxide BUN Creatinine Glucose POC Glucose 149 H 220 H Lactic Acid Calcium Ferritin AST Alkaline Phosphatase Magnesium Lactate Dehydrogenase Total Creatine Kinase CK-MB (CK-2) C-Reactive Protein Total Protein Albumin Troponin T HDL Cholesterol Arterial Blood Glucose Urine WBC (Auto) Urine Creatinine Urine Total Protein Phenytoin Coronavirus (PCR) Crossmatch 06/02/20 06/02/20 06/03/20 13:49 18:31 00:42 WBC RBC Hgb Hct MCHC RDW Lymph % (Auto) [place] % (Auto) Eos % (Auto) Lymph # [place] # Lymph # (Auto) [place] # (Auto) Eos # (Auto) Seg Neutrophils % Seg Neuts % (Manual) Lymphocytes % (Manual) Seg Neutrophils # Seg Neutrophils # Man Lymphocytes # (Manual) Monocytes % (Manual) Eosinophils % (Manual) Monocytes # (Manual) Eosinophils # (Manual) D-Dimer 769.68 H Heparin Anti-Xa Level ABG pH POC ABG pCO2 POC ABG pO2 ABG pO2 ABG HCO3 ABG O2 Saturation ABG Base Excess ABG Hemoglobin ABG Oxyhemoglobin VBG pH ABG Sodium ABG Potassium ABG Glucose Oxyhemoglobin Sodium Potassium Chloride Carbon Dioxide BUN Creatinine Glucose POC Glucose 225 H 212 H Lactic Acid Calcium Ferritin AST Alkaline Phosphatase Magnesium Lactate Dehydrogenase Total Creatine Kinase CK-MB (CK-2) C-Reactive Protein Total Protein Albumin Troponin T HDL Cholesterol Arterial Blood Glucose Urine WBC (Auto) Urine Creatinine Urine Total Protein Phenytoin Coronavirus (PCR) Crossmatch 06/03/20 06/03/20 06/03/20 05:16 05:16 05:25 WBC 11.4 H RBC Hgb Hct MCHC RDW 16.4 H Lymph % (Auto) [place] % (Auto) Eos % (Auto) Lymph # [place] # Lymph # (Auto) [place] # (Auto) Eos # (Auto) Seg Neutrophils % Seg Neuts % (Manual) Lymphocytes % (Manual) Seg Neutrophils # Seg Neutrophils # Man Lymphocytes # (Manual) Monocytes % (Manual) Eosinophils % (Manual) Monocytes # (Manual) Eosinophils # (Manual) D-Dimer Heparin Anti-Xa Level ABG pH POC ABG pCO2 POC ABG pO2 ABG pO2 160.9 H ABG HCO3 19.4 L ABG O2 Saturation ABG Base Excess -4.9 L ABG Hemoglobin 7.0 L ABG Oxyhemoglobin VBG pH ABG Sodium ABG Potassium ABG Glucose Oxyhemoglobin Sodium Potassium Chloride Carbon Dioxide 18 L BUN 65 H Creatinine 2.0 H Glucose 175 H POC Glucose Lactic Acid Calcium 8.0 L Ferritin AST Alkaline Phosphatase Magnesium Lactate Dehydrogenase Total Creatine Kinase CK-MB (CK-2) C-Reactive Protein Total Protein 5.5 L Albumin 2.2 L Troponin T HDL Cholesterol Arterial Blood Glucose Urine WBC (Auto) Urine Creatinine Urine Total Protein Phenytoin Coronavirus (PCR) Crossmatch 06/03/20 06/03/20 06/03/20 06:07 11:58 18:24 WBC RBC Hgb Hct MCHC RDW Lymph % (Auto) [place] % (Auto) Eos % (Auto) Lymph # [place] # Lymph # (Auto) [place] # (Auto) Eos # (Auto) Seg Neutrophils % Seg Neuts % (Manual) Lymphocytes % (Manual) Seg Neutrophils # Seg Neutrophils # Man Lymphocytes # (Manual) Monocytes % (Manual) Eosinophils % (Manual) Monocytes # (Manual) Eosinophils # (Manual) D-Dimer Heparin Anti-Xa Level ABG pH POC ABG pCO2 POC ABG pO2 ABG pO2 ABG HCO3 ABG O2 Saturation ABG Base Excess ABG Hemoglobin ABG Oxyhemoglobin VBG pH ABG Sodium ABG Potassium ABG Glucose Oxyhemoglobin Sodium Potassium Chloride Carbon Dioxide BUN Creatinine Glucose POC Glucose 177 H 163 H 211 H Lactic Acid Calcium Ferritin AST Alkaline Phosphatase Magnesium Lactate Dehydrogenase Total Creatine Kinase CK-MB (CK-2) C-Reactive Protein Total Protein Albumin Troponin T HDL Cholesterol Arterial Blood Glucose Urine WBC (Auto) Urine Creatinine Urine Total Protein Phenytoin Coronavirus (PCR) Crossmatch 06/03/20 06/03/20 06/04/20 21:50 Unknown 00:26 WBC RBC Hgb Hct MCHC RDW Lymph % (Auto) [place] % (Auto) Eos % (Auto) Lymph # [place] # Lymph # (Auto) [place] # (Auto) Eos # (Auto) Seg Neutrophils % Seg Neuts % (Manual) Lymphocytes % (Manual) Seg Neutrophils # Seg Neutrophils # Man Lymphocytes # (Manual) Monocytes % (Manual) Eosinophils % (Manual) Monocytes # (Manual) Eosinophils # (Manual) D-Dimer Heparin Anti-Xa Level ABG pH POC ABG pCO2 POC ABG pO2 ABG pO2 ABG HCO3 ABG O2 Saturation ABG Base Excess ABG Hemoglobin ABG Oxyhemoglobin VBG pH ABG Sodium ABG Potassium ABG Glucose Oxyhemoglobin Sodium 135 L Potassium Chloride Carbon Dioxide 18 L BUN Creatinine Glucose POC Glucose 241 H Lactic Acid Calcium Ferritin AST Alkaline Phosphatase Magnesium Lactate Dehydrogenase Total Creatine Kinase CK-MB (CK-2) C-Reactive Protein Total Protein Albumin Troponin T HDL Cholesterol Arterial Blood Glucose Urine WBC (Auto) 11.0 H Urine Creatinine Urine Total Protein Phenytoin Coronavirus (PCR) Crossmatch 06/04/20 06/04/20 06/04/20 03:35 04:19 04:19 WBC RBC 3.15 L Hgb 8.9 L Hct 26.8 L D MCHC RDW 15.9 H Lymph % (Auto) 6.0 L [place] % (Auto) Eos % (Auto) Lymph # 0.6 L [place] # Lymph # (Auto) [place] # (Auto) Eos # (Auto) Seg Neutrophils % 86.6 H Seg Neuts % (Manual) Lymphocytes % (Manual) Seg Neutrophils # 9.1 H Seg Neutrophils # Man Lymphocytes # (Manual) Monocytes % (Manual) Eosinophils % (Manual) Monocytes # (Manual) Eosinophils # (Manual) D-Dimer Heparin Anti-Xa Level ABG pH 7.331 L POC ABG pCO2 POC ABG pO2 ABG pO2 ABG HCO3 ABG O2 Saturation ABG Base Excess -4.7 L ABG Hemoglobin 11.0 L ABG Oxyhemoglobin VBG pH ABG Sodium ABG Potassium ABG Glucose Oxyhemoglobin 93.9 L Sodium 136 L Potassium Chloride Carbon Dioxide 20 L BUN 73 H Creatinine 2.0 H Glucose 192 H POC Glucose Lactic Acid Calcium 8.0 L Ferritin AST Alkaline Phosphatase Magnesium Lactate Dehydrogenase 271 H Total Creatine Kinase CK-MB (CK-2) C-Reactive Protein 2.20 H Total Protein 5.0 L Albumin 2.0 L Troponin T HDL Cholesterol Arterial Blood Glucose Urine WBC (Auto) Urine Creatinine Urine Total Protein Phenytoin Coronavirus (PCR) Crossmatch 06/04/20 06/04/20 06/04/20 04:19 05:51 11:48 WBC RBC Hgb Hct MCHC RDW Lymph % (Auto) [place] % (Auto) Eos % (Auto) Lymph # [place] # Lymph # (Auto) [place] # (Auto) Eos # (Auto) Seg Neutrophils % Seg Neuts % (Manual) Lymphocytes % (Manual) Seg Neutrophils # Seg Neutrophils # Man Lymphocytes # (Manual) Monocytes % (Manual) Eosinophils % (Manual) Monocytes # (Manual) Eosinophils # (Manual) D-Dimer 414.52 H Heparin Anti-Xa Level ABG pH POC ABG pCO2 POC ABG pO2 ABG pO2 ABG HCO3 ABG O2 Saturation ABG Base Excess ABG Hemoglobin ABG Oxyhemoglobin VBG pH ABG Sodium ABG Potassium ABG Glucose Oxyhemoglobin Sodium Potassium Chloride Carbon Dioxide BUN Creatinine Glucose POC Glucose 179 H 213 H Lactic Acid Calcium Ferritin AST Alkaline Phosphatase Magnesium Lactate Dehydrogenase Total Creatine Kinase CK-MB (CK-2) C-Reactive Protein Total Protein Albumin Troponin T HDL Cholesterol Arterial Blood Glucose Urine WBC (Auto) Urine Creatinine Urine Total Protein Phenytoin Coronavirus (PCR) Crossmatch 06/04/20 06/05/20 06/05/20 18:25 00:16 05:00 WBC RBC Hgb Hct MCHC RDW Lymph % (Auto) [place] % (Auto) Eos % (Auto) Lymph # [place] # Lymph # (Auto) [place] # (Auto) Eos # (Auto) Seg Neutrophils % Seg Neuts % (Manual) Lymphocytes % (Manual) Seg Neutrophils # Seg Neutrophils # Man Lymphocytes # (Manual) Monocytes % (Manual) Eosinophils % (Manual) Monocytes # (Manual) Eosinophils # (Manual) D-Dimer Heparin Anti-Xa Level ABG pH 7.286 L POC ABG pCO2 POC ABG pO2 ABG pO2 96.2 H ABG HCO3 ABG O2 Saturation ABG Base Excess -6.3 L ABG Hemoglobin 8.8 L ABG Oxyhemoglobin VBG pH ABG Sodium ABG Potassium ABG Glucose Oxyhemoglobin 94.8 L Sodium Potassium Chloride Carbon Dioxide BUN Creatinine Glucose POC Glucose 238 H 183 H Lactic Acid Calcium Ferritin AST Alkaline Phosphatase Magnesium Lactate Dehydrogenase Total Creatine Kinase CK-MB (CK-2) C-Reactive Protein Total Protein Albumin Troponin T HDL Cholesterol Arterial Blood Glucose Urine WBC (Auto) Urine Creatinine Urine Total Protein Phenytoin Coronavirus (PCR) Crossmatch 06/05/20 06/05/20 06/05/20 05:39 07:25 07:25 WBC RBC 2.97 L Hgb 8.7 L Hct 25.7 L MCHC RDW 16.0 H Lymph % (Auto) 8.8 L [place] % (Auto) 13.3 H Eos % (Auto) Lymph # 0.8 L [place] # 1.3 H Lymph # (Auto) [place] # (Auto) Eos # (Auto) Seg Neutrophils % 77.3 H Seg Neuts % (Manual) Lymphocytes % (Manual) Seg Neutrophils # Seg Neutrophils # Man Lymphocytes # (Manual) Monocytes % (Manual) Eosinophils % (Manual) Monocytes # (Manual) Eosinophils # (Manual) D-Dimer Heparin Anti-Xa Level ABG pH POC ABG pCO2 POC ABG pO2 ABG pO2 ABG HCO3 ABG O2 Saturation ABG Base Excess ABG Hemoglobin ABG Oxyhemoglobin VBG pH ABG Sodium ABG Potassium ABG Glucose Oxyhemoglobin Sodium 133 L Potassium Chloride Carbon Dioxide 17 L BUN 89 H Creatinine 2.8 H Glucose 176 H POC Glucose 149 H Lactic Acid Calcium 7.7 L Ferritin AST Alkaline Phosphatase Magnesium Lactate Dehydrogenase Total Creatine Kinase CK-MB (CK-2) C-Reactive Protein Total Protein 4.2 L Albumin 1.9 L Troponin T HDL Cholesterol Arterial Blood Glucose Urine WBC (Auto) Urine Creatinine Urine Total Protein Phenytoin Coronavirus (PCR) Crossmatch 06/05/20 06/05/20 06/05/20 07:25 12:05 15:41 WBC RBC Hgb Hct MCHC RDW Lymph % (Auto) [place] % (Auto) Eos % (Auto) Lymph # [place] # Lymph # (Auto) [place] # (Auto) Eos # (Auto) Seg Neutrophils % Seg Neuts % (Manual) Lymphocytes % (Manual) Seg Neutrophils # Seg Neutrophils # Man Lymphocytes # (Manual) Monocytes % (Manual) Eosinophils % (Manual) Monocytes # (Manual) Eosinophils # (Manual) D-Dimer Heparin Anti-Xa Level 0.76 H 0.81 H ABG pH POC ABG pCO2 POC ABG pO2 ABG pO2 ABG HCO3 ABG O2 Saturation ABG Base Excess ABG Hemoglobin ABG Oxyhemoglobin VBG pH ABG Sodium ABG Potassium ABG Glucose Oxyhemoglobin Sodium Potassium Chloride Carbon Dioxide BUN Creatinine Glucose POC Glucose 198 H Lactic Acid Calcium Ferritin AST Alkaline Phosphatase Magnesium Lactate Dehydrogenase Total Creatine Kinase CK-MB (CK-2) C-Reactive Protein Total Protein Albumin Troponin T HDL Cholesterol Arterial Blood Glucose Urine WBC (Auto) Urine Creatinine Urine Total Protein Phenytoin Coronavirus (PCR) Crossmatch 06/05/20 06/05/20 06/06/20 18:08 23:25 04:00 WBC RBC Hgb Hct MCHC RDW Lymph % (Auto) [place] % (Auto) Eos % (Auto) Lymph # [place] # Lymph # (Auto) [place] # (Auto) Eos # (Auto) Seg Neutrophils % Seg Neuts % (Manual) Lymphocytes % (Manual) Seg Neutrophils # Seg Neutrophils # Man Lymphocytes # (Manual) Monocytes % (Manual) Eosinophils % (Manual) Monocytes # (Manual) Eosinophils # (Manual) D-Dimer Heparin Anti-Xa Level ABG pH POC ABG pCO2 POC ABG pO2 ABG pO2 ABG HCO3 ABG O2 Saturation ABG Base Excess ABG Hemoglobin ABG Oxyhemoglobin VBG pH ABG Sodium ABG Potassium ABG Glucose Oxyhemoglobin Sodium Potassium Chloride Carbon Dioxide BUN Creatinine Glucose POC Glucose 223 H 169 H Lactic Acid Calcium Ferritin AST Alkaline Phosphatase Magnesium Lactate Dehydrogenase Total Creatine Kinase CK-MB (CK-2) C-Reactive Protein Total Protein Albumin Troponin T HDL Cholesterol Arterial Blood Glucose Urine WBC (Auto) 15.0 H Urine Creatinine Urine Total Protein Phenytoin Coronavirus (PCR) Crossmatch 06/06/20 06/06/20 06/06/20 04:00 05:33 05:38 WBC RBC 2.97 L Hgb 8.7 L Hct 26.8 L MCHC RDW 16.8 H Lymph % (Auto) [place] % (Auto) Eos % (Auto) Lymph # [place] # Lymph # (Auto) [place] # (Auto) Eos # (Auto) Seg Neutrophils % Seg Neuts % (Manual) Lymphocytes % (Manual) Seg Neutrophils # Seg Neutrophils # Man Lymphocytes # (Manual) Monocytes % (Manual) Eosinophils % (Manual) Monocytes # (Manual) Eosinophils # (Manual) D-Dimer Heparin Anti-Xa Level ABG pH POC ABG pCO2 POC ABG pO2 ABG pO2 ABG HCO3 ABG O2 Saturation ABG Base Excess ABG Hemoglobin ABG Oxyhemoglobin VBG pH ABG Sodium ABG Potassium ABG Glucose Oxyhemoglobin Sodium Potassium Chloride Carbon Dioxide BUN Creatinine Glucose POC Glucose 186 H Lactic Acid Calcium Ferritin AST Alkaline Phosphatase Magnesium Lactate Dehydrogenase Total Creatine Kinase CK-MB (CK-2) C-Reactive Protein Total Protein Albumin Troponin T HDL Cholesterol Arterial Blood Glucose Urine WBC (Auto) Urine Creatinine 82.2 H Urine Total Protein 196 H Phenytoin Coronavirus (PCR) Crossmatch 06/06/20 06/06/20 06/06/20 05:38 12:25 17:03 WBC RBC Hgb Hct MCHC RDW Lymph % (Auto) [place] % (Auto) Eos % (Auto) Lymph # [place] # Lymph # (Auto) [place] # (Auto) Eos # (Auto) Seg Neutrophils % Seg Neuts % (Manual) Lymphocytes % (Manual) Seg Neutrophils # Seg Neutrophils # Man Lymphocytes # (Manual) Monocytes % (Manual) Eosinophils % (Manual) Monocytes # (Manual) Eosinophils # (Manual) D-Dimer Heparin Anti-Xa Level ABG pH POC ABG pCO2 POC ABG pO2 ABG pO2 ABG HCO3 ABG O2 Saturation ABG Base Excess ABG Hemoglobin ABG Oxyhemoglobin VBG pH ABG Sodium ABG Potassium ABG Glucose Oxyhemoglobin Sodium 134 L Potassium 5.2 H Chloride Carbon Dioxide 18 L BUN 97 H Creatinine 2.5 H Glucose 193 H POC Glucose 239 H 252 H Lactic Acid Calcium 7.5 L Ferritin AST Alkaline Phosphatase Magnesium Lactate Dehydrogenase Total Creatine Kinase CK-MB (CK-2) C-Reactive Protein Total Protein 4.1 L Albumin 1.9 L Troponin T HDL Cholesterol Arterial Blood Glucose Urine WBC (Auto) Urine Creatinine Urine Total Protein Phenytoin Coronavirus (PCR) Crossmatch 06/07/20 06/07/20 06/07/20 00:16 01:49 04:00 WBC RBC 2.91 L Hgb 8.4 L Hct 25.0 L MCHC RDW 16.1 H Lymph % (Auto) 5.7 L [place] % (Auto) 10.5 H Eos % (Auto) Lymph # 0.6 L [place] # 1.1 H Lymph # (Auto) [place] # (Auto) Eos # (Auto) Seg Neutrophils % 83.6 H Seg Neuts % (Manual) Lymphocytes % (Manual) Seg Neutrophils # 9.1 H Seg Neutrophils # Man Lymphocytes # (Manual) Monocytes % (Manual) Eosinophils % (Manual) Monocytes # (Manual) Eosinophils # (Manual) D-Dimer Heparin Anti-Xa Level 0.26 L ABG pH POC ABG pCO2 POC ABG pO2 ABG pO2 ABG HCO3 ABG O2 Saturation ABG Base Excess ABG Hemoglobin ABG Oxyhemoglobin VBG pH ABG Sodium ABG Potassium ABG Glucose Oxyhemoglobin Sodium Potassium Chloride Carbon Dioxide BUN Creatinine Glucose POC Glucose 173 H Lactic Acid Calcium Ferritin AST Alkaline Phosphatase Magnesium Lactate Dehydrogenase Total Creatine Kinase CK-MB (CK-2) C-Reactive Protein Total Protein Albumin Troponin T HDL Cholesterol Arterial Blood Glucose Urine WBC (Auto) Urine Creatinine Urine Total Protein Phenytoin Coronavirus (PCR) Crossmatch 06/07/20 06/07/20 06/07/20 04:00 04:54 05:51 WBC RBC Hgb Hct MCHC RDW Lymph % (Auto) [place] % (Auto) Eos % (Auto) Lymph # [place] # Lymph # (Auto) [place] # (Auto) Eos # (Auto) Seg Neutrophils % Seg Neuts % (Manual) Lymphocytes % (Manual) Seg Neutrophils # Seg Neutrophils # Man Lymphocytes # (Manual) Monocytes % (Manual) Eosinophils % (Manual) Monocytes # (Manual) Eosinophils # (Manual) D-Dimer Heparin Anti-Xa Level ABG pH 7.317 L POC ABG pCO2 POC ABG pO2 ABG pO2 71.4 L ABG HCO3 ABG O2 Saturation 94.3 L ABG Base Excess -4.8 L ABG Hemoglobin 7.1 L ABG Oxyhemoglobin VBG pH ABG Sodium ABG Potassium ABG Glucose Oxyhemoglobin 92.2 L Sodium 133 L Potassium Chloride Carbon Dioxide 18 L BUN 100 H Creatinine 2.5 H Glucose 158 H POC Glucose 168 H Lactic Acid Calcium 7.6 L Ferritin AST Alkaline Phosphatase Magnesium Lactate Dehydrogenase Total Creatine Kinase CK-MB (CK-2) C-Reactive Protein Total Protein 4.7 L Albumin 2.0 L Troponin T HDL Cholesterol Arterial Blood Glucose Urine WBC (Auto) Urine Creatinine Urine Total Protein Phenytoin Coronavirus (PCR) Crossmatch 06/07/20 06/07/20 06/07/20 12:03 17:17 20:10 WBC RBC Hgb Hct MCHC RDW Lymph % (Auto) [place] % (Auto) Eos % (Auto) Lymph # [place] # Lymph # (Auto) [place] # (Auto) Eos # (Auto) Seg Neutrophils % Seg Neuts % (Manual) Lymphocytes % (Manual) Seg Neutrophils # Seg Neutrophils # Man Lymphocytes # (Manual) Monocytes % (Manual) Eosinophils % (Manual) Monocytes # (Manual) Eosinophils # (Manual) D-Dimer Heparin Anti-Xa Level 0.17 L ABG pH POC ABG pCO2 POC ABG pO2 ABG pO2 ABG HCO3 ABG O2 Saturation ABG Base Excess ABG Hemoglobin ABG Oxyhemoglobin VBG pH ABG Sodium ABG Potassium ABG Glucose Oxyhemoglobin Sodium Potassium Chloride Carbon Dioxide BUN Creatinine Glucose POC Glucose 276 H 281 H Lactic Acid Calcium Ferritin AST Alkaline Phosphatase Magnesium Lactate Dehydrogenase Total Creatine Kinase CK-MB (CK-2) C-Reactive Protein Total Protein Albumin Troponin T HDL Cholesterol Arterial Blood Glucose Urine WBC (Auto) Urine Creatinine Urine Total Protein Phenytoin Coronavirus (PCR) Crossmatch 06/08/20 06/08/20 06/08/20 00:02 04:47 04:47 WBC 16.4 H RBC 3.07 L Hgb 8.6 L Hct 26.5 L MCHC RDW 16.3 H Lymph % (Auto) [place] % (Auto) Eos % (Auto) Lymph # [place] # Lymph # (Auto) [place] # (Auto) Eos # (Auto) Seg Neutrophils % Seg Neuts % (Manual) 90.0 H Lymphocytes % (Manual) 3.0 L Seg Neutrophils # Seg Neutrophils # Man 14.8 H Lymphocytes # (Manual) 0.5 L Monocytes % (Manual) Eosinophils % (Manual) Monocytes # (Manual) 1.1 H Eosinophils # (Manual) D-Dimer Heparin Anti-Xa Level ABG pH POC ABG pCO2 POC ABG pO2 ABG pO2 ABG HCO3 ABG O2 Saturation ABG Base Excess ABG Hemoglobin ABG Oxyhemoglobin VBG pH ABG Sodium ABG Potassium ABG Glucose Oxyhemoglobin Sodium 129 L Potassium Chloride 95.6 L Carbon Dioxide 17 L BUN 106 H Creatinine 2.5 H Glucose 213 H POC Glucose 242 H Lactic Acid Calcium 7.6 L Ferritin AST Alkaline Phosphatase Magnesium Lactate Dehydrogenase Total Creatine Kinase CK-MB (CK-2) C-Reactive Protein Total Protein 5.0 L Albumin 2.1 L Troponin T HDL Cholesterol Arterial Blood Glucose Urine WBC (Auto) Urine Creatinine Urine Total Protein Phenytoin Coronavirus (PCR) Crossmatch 06/08/20 06/08/20 06/08/20 05:40 11:55 17:54 WBC RBC Hgb Hct MCHC RDW Lymph % (Auto) [place] % (Auto) Eos % (Auto) Lymph # [place] # Lymph # (Auto) [place] # (Auto) Eos # (Auto) Seg Neutrophils % Seg Neuts % (Manual) Lymphocytes % (Manual) Seg Neutrophils # Seg Neutrophils # Man Lymphocytes # (Manual) Monocytes % (Manual) Eosinophils % (Manual) Monocytes # (Manual) Eosinophils # (Manual) D-Dimer Heparin Anti-Xa Level ABG pH POC ABG pCO2 POC ABG pO2 ABG pO2 ABG HCO3 ABG O2 Saturation ABG Base Excess ABG Hemoglobin ABG Oxyhemoglobin VBG pH ABG Sodium ABG Potassium ABG Glucose Oxyhemoglobin Sodium Potassium Chloride Carbon Dioxide BUN Creatinine Glucose POC Glucose 221 H 218 H 163 H Lactic Acid Calcium Ferritin AST Alkaline Phosphatase Magnesium Lactate Dehydrogenase Total Creatine Kinase CK-MB (CK-2) C-Reactive Protein Total Protein Albumin Troponin T HDL Cholesterol Arterial Blood Glucose Urine WBC (Auto) Urine Creatinine Urine Total Protein Phenytoin Coronavirus (PCR) Crossmatch 06/08/20 06/09/20 06/09/20 22:01 00:09 05:16 WBC 19.0 H RBC 3.35 L Hgb 9.2 L Hct 28.5 L MCHC RDW 16.3 H Lymph % (Auto) [place] % (Auto) Eos % (Auto) Lymph # [place] # Lymph # (Auto) [place] # (Auto) Eos # (Auto) Seg Neutrophils % Seg Neuts % (Manual) 85.0 H Lymphocytes % (Manual) 7.0 L Seg Neutrophils # Seg Neutrophils # Man 16.2 H Lymphocytes # (Manual) Monocytes % (Manual) Eosinophils % (Manual) Monocytes # (Manual) 1.3 H Eosinophils # (Manual) D-Dimer Heparin Anti-Xa Level ABG pH POC ABG pCO2 POC ABG pO2 ABG pO2 ABG HCO3 ABG O2 Saturation ABG Base Excess ABG Hemoglobin ABG Oxyhemoglobin VBG pH ABG Sodium ABG Potassium ABG Glucose Oxyhemoglobin Sodium Potassium Chloride Carbon Dioxide BUN Creatinine Glucose POC Glucose 182 H 150 H Lactic Acid Calcium Ferritin AST Alkaline Phosphatase Magnesium Lactate Dehydrogenase Total Creatine Kinase CK-MB (CK-2) C-Reactive Protein Total Protein Albumin Troponin T HDL Cholesterol Arterial Blood Glucose Urine WBC (Auto) Urine Creatinine Urine Total Protein Phenytoin Coronavirus (PCR) Crossmatch 06/09/20 06/09/20 06/09/20 05:16 05:24 11:29 WBC RBC Hgb Hct MCHC RDW Lymph % (Auto) [place] % (Auto) Eos % (Auto) Lymph # [place] # Lymph # (Auto) [place] # (Auto) Eos # (Auto) Seg Neutrophils % Seg Neuts % (Manual) Lymphocytes % (Manual) Seg Neutrophils # Seg Neutrophils # Man Lymphocytes # (Manual) Monocytes % (Manual) Eosinophils % (Manual) Monocytes # (Manual) Eosinophils # (Manual) D-Dimer Heparin Anti-Xa Level ABG pH POC ABG pCO2 POC ABG pO2 ABG pO2 ABG HCO3 ABG O2 Saturation ABG Base Excess ABG Hemoglobin ABG Oxyhemoglobin VBG pH ABG Sodium ABG Potassium ABG Glucose Oxyhemoglobin Sodium 133 L Potassium Chloride Carbon Dioxide 19 L BUN 109 H Creatinine 2.1 H Glucose 133 H POC Glucose 128 H 119 H Lactic Acid Calcium 7.7 L Ferritin AST Alkaline Phosphatase < 5 L Magnesium Lactate Dehydrogenase Total Creatine Kinase CK-MB (CK-2) C-Reactive Protein Total Protein 4.6 L Albumin < 0.2 L Troponin T HDL Cholesterol Arterial Blood Glucose Urine WBC (Auto) Urine Creatinine Urine Total Protein Phenytoin Coronavirus (PCR) Crossmatch 06/09/20 06/10/20 06/10/20 17:32 00:00 05:49 WBC RBC Hgb Hct MCHC RDW Lymph % (Auto) [place] % (Auto) Eos % (Auto) Lymph # [place] # Lymph # (Auto) [place] # (Auto) Eos # (Auto) Seg Neutrophils % Seg Neuts % (Manual) Lymphocytes % (Manual) Seg Neutrophils # Seg Neutrophils # Man Lymphocytes # (Manual) Monocytes % (Manual) Eosinophils % (Manual) Monocytes # (Manual) Eosinophils # (Manual) D-Dimer Heparin Anti-Xa Level 0.19 L ABG pH POC ABG pCO2 POC ABG pO2 ABG pO2 ABG HCO3 ABG O2 Saturation ABG Base Excess ABG Hemoglobin ABG Oxyhemoglobin VBG pH ABG Sodium ABG Potassium ABG Glucose Oxyhemoglobin Sodium Potassium Chloride Carbon Dioxide BUN Creatinine Glucose POC Glucose 106 H 117 H Lactic Acid Calcium Ferritin AST Alkaline Phosphatase Magnesium Lactate Dehydrogenase Total Creatine Kinase CK-MB (CK-2) C-Reactive Protein Total Protein Albumin Troponin T HDL Cholesterol Arterial Blood Glucose Urine WBC (Auto) Urine Creatinine Urine Total Protein Phenytoin Coronavirus (PCR) Crossmatch 06/10/20 06/10/20 06/10/20 05:54 07:40 11:40 WBC RBC Hgb Hct MCHC RDW Lymph % (Auto) [place] % (Auto) Eos % (Auto) Lymph # [place] # Lymph # (Auto) [place] # (Auto) Eos # (Auto) Seg Neutrophils % Seg Neuts % (Manual) Lymphocytes % (Manual) Seg Neutrophils # Seg Neutrophils # Man Lymphocytes # (Manual) Monocytes % (Manual) Eosinophils % (Manual) Monocytes # (Manual) Eosinophils # (Manual) D-Dimer Heparin Anti-Xa Level ABG pH POC ABG pCO2 POC ABG pO2 ABG pO2 ABG HCO3 ABG O2 Saturation ABG Base Excess ABG Hemoglobin ABG Oxyhemoglobin VBG pH ABG Sodium ABG Potassium ABG Glucose Oxyhemoglobin Sodium 146 H D Potassium Chloride Carbon Dioxide 20 L BUN 99 H Creatinine 1.9 H Glucose 121 H POC Glucose 127 H 138 H Lactic Acid Calcium 8.2 L Ferritin AST Alkaline Phosphatase Magnesium Lactate Dehydrogenase Total Creatine Kinase CK-MB (CK-2) C-Reactive Protein Total Protein Albumin Troponin T HDL Cholesterol Arterial Blood Glucose Urine WBC (Auto) Urine Creatinine Urine Total Protein Phenytoin Coronavirus (PCR) Crossmatch 06/10/20 06/10/20 06/10/20 14:44 17:31 23:22 WBC RBC Hgb Hct MCHC RDW Lymph % (Auto) [place] % (Auto) Eos % (Auto) Lymph # [place] # Lymph # (Auto) [place] # (Auto) Eos # (Auto) Seg Neutrophils % Seg Neuts % (Manual) Lymphocytes % (Manual) Seg Neutrophils # Seg Neutrophils # Man Lymphocytes # (Manual) Monocytes % (Manual) Eosinophils % (Manual) Monocytes # (Manual) Eosinophils # (Manual) D-Dimer Heparin Anti-Xa Level 0.17 L ABG pH POC ABG pCO2 POC ABG pO2 ABG pO2 ABG HCO3 ABG O2 Saturation ABG Base Excess ABG Hemoglobin ABG Oxyhemoglobin VBG pH ABG Sodium ABG Potassium ABG Glucose Oxyhemoglobin Sodium Potassium Chloride Carbon Dioxide BUN Creatinine Glucose POC Glucose 128 H 114 H Lactic Acid Calcium Ferritin AST Alkaline Phosphatase Magnesium Lactate Dehydrogenase Total Creatine Kinase CK-MB (CK-2) C-Reactive Protein Total Protein Albumin Troponin T HDL Cholesterol Arterial Blood Glucose Urine WBC (Auto) Urine Creatinine Urine Total Protein Phenytoin Coronavirus (PCR) Crossmatch 06/11/20 06/11/20 06/11/20 00:22 03:45 03:45 WBC 14.6 H RBC 2.77 L Hgb 7.9 L Hct 24.3 L MCHC RDW 16.8 H Lymph % (Auto) 6.6 L [place] % (Auto) 8.5 H Eos % (Auto) Lymph # 1.0 L [place] # 1.2 H Lymph # (Auto) [place] # (Auto) Eos # (Auto) Seg Neutrophils % 82.9 H Seg Neuts % (Manual) Lymphocytes % (Manual) Seg Neutrophils # 12.1 H Seg Neutrophils # Man Lymphocytes # (Manual) Monocytes % (Manual) Eosinophils % (Manual) Monocytes # (Manual) Eosinophils # (Manual) D-Dimer Heparin Anti-Xa Level 0.24 L ABG pH POC ABG pCO2 POC ABG pO2 ABG pO2 ABG HCO3 ABG O2 Saturation ABG Base Excess ABG Hemoglobin ABG Oxyhemoglobin VBG pH ABG Sodium ABG Potassium ABG Glucose Oxyhemoglobin Sodium Potassium Chloride Carbon Dioxide 20 L BUN 88 H Creatinine 1.5 H Glucose 111 H POC Glucose Lactic Acid Calcium 8.2 L Ferritin AST Alkaline Phosphatase Magnesium Lactate Dehydrogenase Total Creatine Kinase CK-MB (CK-2) C-Reactive Protein Total Protein Albumin Troponin T HDL Cholesterol Arterial Blood Glucose Urine WBC (Auto) Urine Creatinine Urine Total Protein Phenytoin Coronavirus (PCR) Crossmatch 06/11/20 06/11/20 06/11/20 06:03 10:22 11:11 WBC RBC Hgb Hct MCHC RDW Lymph % (Auto) [place] % (Auto) Eos % (Auto) Lymph # [place] # Lymph # (Auto) [place] # (Auto) Eos # (Auto) Seg Neutrophils % Seg Neuts % (Manual) Lymphocytes % (Manual) Seg Neutrophils # Seg Neutrophils # Man Lymphocytes # (Manual) Monocytes % (Manual) Eosinophils % (Manual) Monocytes # (Manual) Eosinophils # (Manual) D-Dimer Heparin Anti-Xa Level 0.26 L ABG pH POC ABG pCO2 POC ABG pO2 ABG pO2 ABG HCO3 ABG O2 Saturation ABG Base Excess ABG Hemoglobin 9.6 L ABG Oxyhemoglobin VBG pH ABG Sodium ABG Potassium ABG Glucose Oxyhemoglobin Sodium Potassium Chloride Carbon Dioxide BUN Creatinine Glucose POC Glucose 114 H Lactic Acid Calcium Ferritin AST Alkaline Phosphatase Magnesium Lactate Dehydrogenase Total Creatine Kinase CK-MB (CK-2) C-Reactive Protein Total Protein Albumin Troponin T HDL Cholesterol Arterial Blood Glucose Urine WBC (Auto) Urine Creatinine Urine Total Protein Phenytoin Coronavirus (PCR) Crossmatch 06/11/20 06/11/20 06/12/20 12:24 17:24 00:21 WBC RBC Hgb Hct MCHC RDW Lymph % (Auto) [place] % (Auto) Eos % (Auto) Lymph # [place] # Lymph # (Auto) [place] # (Auto) Eos # (Auto) Seg Neutrophils % Seg Neuts % (Manual) Lymphocytes % (Manual) Seg Neutrophils # Seg Neutrophils # Man Lymphocytes # (Manual) Monocytes % (Manual) Eosinophils % (Manual) Monocytes # (Manual) Eosinophils # (Manual) D-Dimer Heparin Anti-Xa Level ABG pH POC ABG pCO2 POC ABG pO2 ABG pO2 ABG HCO3 ABG O2 Saturation ABG Base Excess ABG Hemoglobin ABG Oxyhemoglobin VBG pH ABG Sodium ABG Potassium ABG Glucose Oxyhemoglobin Sodium Potassium Chloride Carbon Dioxide BUN Creatinine Glucose POC Glucose 119 H 126 H 117 H Lactic Acid Calcium Ferritin AST Alkaline Phosphatase Magnesium Lactate Dehydrogenase Total Creatine Kinase CK-MB (CK-2) C-Reactive Protein Total Protein Albumin Troponin T HDL Cholesterol Arterial Blood Glucose Urine WBC (Auto) Urine Creatinine Urine Total Protein Phenytoin Coronavirus (PCR) Crossmatch 06/12/20 06/12/20 06/12/20 02:46 02:46 05:46 WBC 13.2 H RBC 2.83 L Hgb 8.3 L Hct 24.3 L MCHC RDW 16.6 H Lymph % (Auto) 6.2 L [place] % (Auto) 9.5 H Eos % (Auto) Lymph # 0.8 L [place] # 1.3 H Lymph # (Auto) [place] # (Auto) Eos # (Auto) Seg Neutrophils % 81.9 H Seg Neuts % (Manual) Lymphocytes % (Manual) Seg Neutrophils # 10.9 H Seg Neutrophils # Man Lymphocytes # (Manual) Monocytes % (Manual) Eosinophils % (Manual) Monocytes # (Manual) Eosinophils # (Manual) D-Dimer Heparin Anti-Xa Level ABG pH POC ABG pCO2 POC ABG pO2 ABG pO2 ABG HCO3 ABG O2 Saturation ABG Base Excess ABG Hemoglobin ABG Oxyhemoglobin VBG pH ABG Sodium ABG Potassium ABG Glucose Oxyhemoglobin Sodium Potassium 3.5 L Chloride Carbon Dioxide BUN 77 H Creatinine 1.3 H Glucose POC Glucose 132 H Lactic Acid Calcium 8.3 L Ferritin AST Alkaline Phosphatase Magnesium Lactate Dehydrogenase Total Creatine Kinase CK-MB (CK-2) C-Reactive Protein Total Protein Albumin Troponin T HDL Cholesterol Arterial Blood Glucose Urine WBC (Auto) Urine Creatinine Urine Total Protein Phenytoin Coronavirus (PCR) Crossmatch 06/12/20 06/12/20 06/12/20 09:20 12:16 17:48 WBC RBC Hgb Hct MCHC RDW Lymph % (Auto) [place] % (Auto) Eos % (Auto) Lymph # [place] # Lymph # (Auto) [place] # (Auto) Eos # (Auto) Seg Neutrophils % Seg Neuts % (Manual) Lymphocytes % (Manual) Seg Neutrophils # Seg Neutrophils # Man Lymphocytes # (Manual) Monocytes % (Manual) Eosinophils % (Manual) Monocytes # (Manual) Eosinophils # (Manual) D-Dimer Heparin Anti-Xa Level ABG pH POC ABG pCO2 POC ABG pO2 ABG pO2 91.1 H ABG HCO3 ABG O2 Saturation ABG Base Excess ABG Hemoglobin ABG Oxyhemoglobin VBG pH ABG Sodium ABG Potassium ABG Glucose Oxyhemoglobin 94.8 L Sodium Potassium Chloride Carbon Dioxide BUN Creatinine Glucose POC Glucose 167 H 182 H Lactic Acid Calcium Ferritin AST Alkaline Phosphatase Magnesium Lactate Dehydrogenase Total Creatine Kinase CK-MB (CK-2) C-Reactive Protein Total Protein Albumin Troponin T HDL Cholesterol Arterial Blood Glucose Urine WBC (Auto) Urine Creatinine Urine Total Protein Phenytoin Coronavirus (PCR) Crossmatch 06/13/20 06/13/20 06/13/20 00:08 05:37 09:09 WBC RBC Hgb Hct MCHC RDW Lymph % (Auto) [place] % (Auto) Eos % (Auto) Lymph # [place] # Lymph # (Auto) [place] # (Auto) Eos # (Auto) Seg Neutrophils % Seg Neuts % (Manual) Lymphocytes % (Manual) Seg Neutrophils # Seg Neutrophils # Man Lymphocytes # (Manual) Monocytes % (Manual) Eosinophils % (Manual) Monocytes # (Manual) Eosinophils # (Manual) D-Dimer Heparin Anti-Xa Level 0.86 H ABG pH POC ABG pCO2 POC ABG pO2 ABG pO2 ABG HCO3 ABG O2 Saturation ABG Base Excess ABG Hemoglobin ABG Oxyhemoglobin VBG pH ABG Sodium ABG Potassium ABG Glucose Oxyhemoglobin Sodium Potassium Chloride Carbon Dioxide BUN Creatinine Glucose POC Glucose 142 H 119 H Lactic Acid Calcium Ferritin AST Alkaline Phosphatase Magnesium Lactate Dehydrogenase Total Creatine Kinase CK-MB (CK-2) C-Reactive Protein Total Protein Albumin Troponin T HDL Cholesterol Arterial Blood Glucose Urine WBC (Auto) Urine Creatinine Urine Total Protein Phenytoin Coronavirus (PCR) Crossmatch 06/13/20 06/13/20 06/13/20 12:28 17:55 21:17 WBC RBC Hgb Hct MCHC RDW Lymph % (Auto) [place] % (Auto) Eos % (Auto) Lymph # [place] # Lymph # (Auto) [place] # (Auto) Eos # (Auto) Seg Neutrophils % Seg Neuts % (Manual) Lymphocytes % (Manual) Seg Neutrophils # Seg Neutrophils # Man Lymphocytes # (Manual) Monocytes % (Manual) Eosinophils % (Manual) Monocytes # (Manual) Eosinophils # (Manual) D-Dimer Heparin Anti-Xa Level ABG pH POC ABG pCO2 POC ABG pO2 ABG pO2 ABG HCO3 ABG O2 Saturation ABG Base Excess ABG Hemoglobin ABG Oxyhemoglobin VBG pH ABG Sodium ABG Potassium ABG Glucose Oxyhemoglobin Sodium Potassium Chloride Carbon Dioxide BUN 61 H Creatinine Glucose 131 H POC Glucose 165 H 174 H Lactic Acid Calcium Ferritin AST Alkaline Phosphatase Magnesium Lactate Dehydrogenase Total Creatine Kinase CK-MB (CK-2) C-Reactive Protein Total Protein Albumin Troponin T HDL Cholesterol Arterial Blood Glucose Urine WBC (Auto) Urine Creatinine Urine Total Protein Phenytoin Coronavirus (PCR) Crossmatch 06/13/20 06/13/20 06/14/20 21:17 23:50 05:34 WBC RBC Hgb Hct MCHC RDW Lymph % (Auto) [place] % (Auto) Eos % (Auto) Lymph # [place] # Lymph # (Auto) [place] # (Auto) Eos # (Auto) Seg Neutrophils % Seg Neuts % (Manual) Lymphocytes % (Manual) Seg Neutrophils # Seg Neutrophils # Man Lymphocytes # (Manual) Monocytes % (Manual) Eosinophils % (Manual) Monocytes # (Manual) Eosinophils # (Manual) D-Dimer Heparin Anti-Xa Level 0.72 H ABG pH POC ABG pCO2 POC ABG pO2 ABG pO2 ABG HCO3 ABG O2 Saturation ABG Base Excess ABG Hemoglobin ABG Oxyhemoglobin VBG pH ABG Sodium ABG Potassium ABG Glucose Oxyhemoglobin Sodium 146 H Potassium Chloride 107.6 H Carbon Dioxide BUN 61 H Creatinine 1.3 H Glucose 135 H POC Glucose 146 H Lactic Acid Calcium Ferritin AST Alkaline Phosphatase Magnesium Lactate Dehydrogenase Total Creatine Kinase CK-MB (CK-2) C-Reactive Protein Total Protein Albumin Troponin T HDL Cholesterol Arterial Blood Glucose Urine WBC (Auto) Urine Creatinine Urine Total Protein Phenytoin Coronavirus (PCR) Crossmatch 06/14/20 06/14/20 06/14/20 06:11 09:28 11:30 WBC RBC Hgb Hct MCHC RDW Lymph % (Auto) [place] % (Auto) Eos % (Auto) Lymph # [place] # Lymph # (Auto) [place] # (Auto) Eos # (Auto) Seg Neutrophils % Seg Neuts % (Manual) Lymphocytes % (Manual) Seg Neutrophils # Seg Neutrophils # Man Lymphocytes # (Manual) Monocytes % (Manual) Eosinophils % (Manual) Monocytes # (Manual) Eosinophils # (Manual) D-Dimer Heparin Anti-Xa Level 0.90 H ABG pH POC ABG pCO2 POC ABG pO2 ABG pO2 ABG HCO3 ABG O2 Saturation ABG Base Excess ABG Hemoglobin ABG Oxyhemoglobin VBG pH ABG Sodium ABG Potassium ABG Glucose Oxyhemoglobin Sodium Potassium Chloride Carbon Dioxide BUN Creatinine Glucose POC Glucose 141 H 186 H Lactic Acid Calcium Ferritin AST Alkaline Phosphatase Magnesium Lactate Dehydrogenase Total Creatine Kinase CK-MB (CK-2) C-Reactive Protein Total Protein Albumin Troponin T HDL Cholesterol Arterial Blood Glucose Urine WBC (Auto) Urine Creatinine Urine Total Protein Phenytoin Coronavirus (PCR) Crossmatch 06/14/20 06/14/20 06/14/20 16:07 18:16 23:51 WBC RBC Hgb Hct MCHC RDW Lymph % (Auto) [place] % (Auto) Eos % (Auto) Lymph # [place] # Lymph # (Auto) [place] # (Auto) Eos # (Auto) Seg Neutrophils % Seg Neuts % (Manual) Lymphocytes % (Manual) Seg Neutrophils # Seg Neutrophils # Man Lymphocytes # (Manual) Monocytes % (Manual) Eosinophils % (Manual) Monocytes # (Manual) Eosinophils # (Manual) D-Dimer Heparin Anti-Xa Level 0.82 H ABG pH POC ABG pCO2 POC ABG pO2 ABG pO2 ABG HCO3 ABG O2 Saturation ABG Base Excess ABG Hemoglobin ABG Oxyhemoglobin VBG pH ABG Sodium ABG Potassium ABG Glucose Oxyhemoglobin Sodium Potassium Chloride Carbon Dioxide BUN Creatinine Glucose POC Glucose 106 H 154 H Lactic Acid Calcium Ferritin AST Alkaline Phosphatase Magnesium Lactate Dehydrogenase Total Creatine Kinase CK-MB (CK-2) C-Reactive Protein Total Protein Albumin Troponin T HDL Cholesterol Arterial Blood Glucose Urine WBC (Auto) Urine Creatinine Urine Total Protein Phenytoin Coronavirus (PCR) Crossmatch 06/15/20 06/15/20 06/15/20 04:24 04:24 05:59 WBC RBC 2.75 L Hgb 7.9 L Hct 24.0 L MCHC RDW 16.4 H Lymph % (Auto) 12.9 L [place] % (Auto) 8.7 H Eos % (Auto) 4.6 H Lymph # 1.1 L [place] # Lymph # (Auto) [place] # (Auto) Eos # (Auto) Seg Neutrophils % 73.2 H Seg Neuts % (Manual) Lymphocytes % (Manual) Seg Neutrophils # Seg Neutrophils # Man Lymphocytes # (Manual) Monocytes % (Manual) Eosinophils % (Manual) Monocytes # (Manual) Eosinophils # (Manual) D-Dimer Heparin Anti-Xa Level ABG pH POC ABG pCO2 POC ABG pO2 ABG pO2 ABG HCO3 ABG O2 Saturation ABG Base Excess ABG Hemoglobin ABG Oxyhemoglobin VBG pH ABG Sodium ABG Potassium ABG Glucose Oxyhemoglobin Sodium Potassium 3.4 L Chloride Carbon Dioxide BUN 55 H Creatinine 1.3 H Glucose 142 H POC Glucose 131 H Lactic Acid Calcium Ferritin AST Alkaline Phosphatase Magnesium Lactate Dehydrogenase Total Creatine Kinase CK-MB (CK-2) C-Reactive Protein Total Protein Albumin Troponin T HDL Cholesterol Arterial Blood Glucose Urine WBC (Auto) Urine Creatinine Urine Total Protein Phenytoin Coronavirus (PCR) Crossmatch 06/15/20 06/15/20 06/16/20 12:33 17:07 00:22 WBC RBC Hgb Hct MCHC RDW Lymph % (Auto) [place] % (Auto) Eos % (Auto) Lymph # [place] # Lymph # (Auto) [place] # (Auto) Eos # (Auto) Seg Neutrophils % Seg Neuts % (Manual) Lymphocytes % (Manual) Seg Neutrophils # Seg Neutrophils # Man Lymphocytes # (Manual) Monocytes % (Manual) Eosinophils % (Manual) Monocytes # (Manual) Eosinophils # (Manual) D-Dimer Heparin Anti-Xa Level 0.21 L ABG pH POC ABG pCO2 POC ABG pO2 ABG pO2 ABG HCO3 ABG O2 Saturation ABG Base Excess ABG Hemoglobin ABG Oxyhemoglobin VBG pH ABG Sodium ABG Potassium ABG Glucose Oxyhemoglobin Sodium Potassium Chloride Carbon Dioxide BUN Creatinine Glucose POC Glucose 180 H 185 H Lactic Acid Calcium Ferritin AST Alkaline Phosphatase Magnesium Lactate Dehydrogenase Total Creatine Kinase CK-MB (CK-2) C-Reactive Protein Total Protein Albumin Troponin T HDL Cholesterol Arterial Blood Glucose Urine WBC (Auto) Urine Creatinine Urine Total Protein Phenytoin Coronavirus (PCR) Crossmatch 06/16/20 06/16/20 06/16/20 01:45 08:06 09:15 WBC RBC Hgb Hct MCHC RDW Lymph % (Auto) [place] % (Auto) Eos % (Auto) Lymph # [place] # Lymph # (Auto) [place] # (Auto) Eos # (Auto) Seg Neutrophils % Seg Neuts % (Manual) Lymphocytes % (Manual) Seg Neutrophils # Seg Neutrophils # Man Lymphocytes # (Manual) Monocytes % (Manual) Eosinophils % (Manual) Monocytes # (Manual) Eosinophils # (Manual) D-Dimer Heparin Anti-Xa Level ABG pH POC ABG pCO2 POC ABG pO2 ABG pO2 ABG HCO3 ABG O2 Saturation ABG Base Excess ABG Hemoglobin ABG Oxyhemoglobin VBG pH ABG Sodium ABG Potassium ABG Glucose Oxyhemoglobin Sodium Potassium Chloride Carbon Dioxide BUN 49 H Creatinine Glucose 154 H POC Glucose 140 H 171 H Lactic Acid Calcium Ferritin AST Alkaline Phosphatase Magnesium Lactate Dehydrogenase Total Creatine Kinase CK-MB (CK-2) C-Reactive Protein Total Protein Albumin Troponin T HDL Cholesterol Arterial Blood Glucose Urine WBC (Auto) Urine Creatinine Urine Total Protein Phenytoin Coronavirus (PCR) Crossmatch 06/16/20 06/16/20 06/16/20 10:46 12:33 17:54 WBC RBC Hgb Hct MCHC RDW Lymph % (Auto) [place] % (Auto) Eos % (Auto) Lymph # [place] # Lymph # (Auto) [place] # (Auto) Eos # (Auto) Seg Neutrophils % Seg Neuts % (Manual) Lymphocytes % (Manual) Seg Neutrophils # Seg Neutrophils # Man Lymphocytes # (Manual) Monocytes % (Manual) Eosinophils % (Manual) Monocytes # (Manual) Eosinophils # (Manual) D-Dimer Heparin Anti-Xa Level 0.12 L ABG pH POC ABG pCO2 POC ABG pO2 ABG pO2 ABG HCO3 ABG O2 Saturation ABG Base Excess ABG Hemoglobin ABG Oxyhemoglobin VBG pH ABG Sodium ABG Potassium ABG Glucose Oxyhemoglobin Sodium Potassium Chloride Carbon Dioxide BUN Creatinine Glucose POC Glucose 166 H 151 H Lactic Acid Calcium Ferritin AST Alkaline Phosphatase Magnesium Lactate Dehydrogenase Total Creatine Kinase CK-MB (CK-2) C-Reactive Protein Total Protein Albumin Troponin T HDL Cholesterol Arterial Blood Glucose Urine WBC (Auto) Urine Creatinine Urine Total Protein Phenytoin Coronavirus (PCR) Crossmatch 06/16/20 06/17/20 06/17/20 18:47 00:00 02:19 WBC RBC Hgb Hct MCHC RDW Lymph % (Auto) [place] % (Auto) Eos % (Auto) Lymph # [place] # Lymph # (Auto) [place] # (Auto) Eos # (Auto) Seg Neutrophils % Seg Neuts % (Manual) Lymphocytes % (Manual) Seg Neutrophils # Seg Neutrophils # Man Lymphocytes # (Manual) Monocytes % (Manual) Eosinophils % (Manual) Monocytes # (Manual) Eosinophils # (Manual) D-Dimer Heparin Anti-Xa Level 0.73 H 0.77 H ABG pH POC ABG pCO2 POC ABG pO2 ABG pO2 ABG HCO3 ABG O2 Saturation ABG Base Excess ABG Hemoglobin ABG Oxyhemoglobin VBG pH ABG Sodium ABG Potassium ABG Glucose Oxyhemoglobin Sodium Potassium Chloride Carbon Dioxide BUN Creatinine Glucose POC Glucose 139 H Lactic Acid Calcium Ferritin AST Alkaline Phosphatase Magnesium Lactate Dehydrogenase Total Creatine Kinase CK-MB (CK-2) C-Reactive Protein Total Protein Albumin Troponin T HDL Cholesterol Arterial Blood Glucose Urine WBC (Auto) Urine Creatinine Urine Total Protein Phenytoin Coronavirus (PCR) Crossmatch 06/17/20 06/17/20 06/17/20 06:07 11:42 16:43 WBC RBC Hgb Hct MCHC RDW Lymph % (Auto) [place] % (Auto) Eos % (Auto) Lymph # [place] # Lymph # (Auto) [place] # (Auto) Eos # (Auto) Seg Neutrophils % Seg Neuts % (Manual) Lymphocytes % (Manual) Seg Neutrophils # Seg Neutrophils # Man Lymphocytes # (Manual) Monocytes % (Manual) Eosinophils % (Manual) Monocytes # (Manual) Eosinophils # (Manual) D-Dimer Heparin Anti-Xa Level 0.73 H ABG pH POC ABG pCO2 POC ABG pO2 ABG pO2 ABG HCO3 ABG O2 Saturation ABG Base Excess ABG Hemoglobin ABG Oxyhemoglobin VBG pH ABG Sodium ABG Potassium ABG Glucose Oxyhemoglobin Sodium Potassium Chloride Carbon Dioxide BUN Creatinine Glucose POC Glucose 169 H 169 H Lactic Acid Calcium Ferritin AST Alkaline Phosphatase Magnesium Lactate Dehydrogenase Total Creatine Kinase CK-MB (CK-2) C-Reactive Protein Total Protein Albumin Troponin T HDL Cholesterol Arterial Blood Glucose Urine WBC (Auto) Urine Creatinine Urine Total Protein Phenytoin Coronavirus (PCR) Crossmatch 06/17/20 06/17/20 06/17/20 18:18 23:08 23:16 WBC RBC Hgb Hct MCHC RDW Lymph % (Auto) [place] % (Auto) Eos % (Auto) Lymph # [place] # Lymph # (Auto) [place] # (Auto) Eos # (Auto) Seg Neutrophils % Seg Neuts % (Manual) Lymphocytes % (Manual) Seg Neutrophils # Seg Neutrophils # Man Lymphocytes # (Manual) Monocytes % (Manual) Eosinophils % (Manual) Monocytes # (Manual) Eosinophils # (Manual) D-Dimer Heparin Anti-Xa Level 0.71 H ABG pH POC ABG pCO2 POC ABG pO2 ABG pO2 ABG HCO3 ABG O2 Saturation ABG Base Excess ABG Hemoglobin ABG Oxyhemoglobin VBG pH ABG Sodium ABG Potassium ABG Glucose Oxyhemoglobin Sodium Potassium Chloride Carbon Dioxide BUN Creatinine Glucose POC Glucose 159 H 134 H Lactic Acid Calcium Ferritin AST Alkaline Phosphatase Magnesium Lactate Dehydrogenase Total Creatine Kinase CK-MB (CK-2) C-Reactive Protein Total Protein Albumin Troponin T HDL Cholesterol Arterial Blood Glucose Urine WBC (Auto) Urine Creatinine Urine Total Protein Phenytoin Coronavirus (PCR) Crossmatch 06/18/20 06/18/20 06/18/20 04:42 05:52 11:50 WBC RBC Hgb Hct MCHC RDW Lymph % (Auto) [place] % (Auto) Eos % (Auto) Lymph # [place] # Lymph # (Auto) [place] # (Auto) Eos # (Auto) Seg Neutrophils % Seg Neuts % (Manual) Lymphocytes % (Manual) Seg Neutrophils # Seg Neutrophils # Man Lymphocytes # (Manual) Monocytes % (Manual) Eosinophils % (Manual) Monocytes # (Manual) Eosinophils # (Manual) D-Dimer Heparin Anti-Xa Level ABG pH POC ABG pCO2 POC ABG pO2 ABG pO2 ABG HCO3 ABG O2 Saturation ABG Base Excess ABG Hemoglobin ABG Oxyhemoglobin VBG pH ABG Sodium ABG Potassium ABG Glucose Oxyhemoglobin Sodium Potassium Chloride Carbon Dioxide BUN 44 H Creatinine Glucose 115 H POC Glucose 171 H 167 H Lactic Acid Calcium Ferritin AST Alkaline Phosphatase Magnesium Lactate Dehydrogenase Total Creatine Kinase CK-MB (CK-2) C-Reactive Protein Total Protein Albumin Troponin T HDL Cholesterol Arterial Blood Glucose Urine WBC (Auto) Urine Creatinine Urine Total Protein Phenytoin Coronavirus (PCR) Crossmatch 06/18/20 06/19/20 06/19/20 23:46 05:48 07:52 WBC RBC Hgb Hct MCHC RDW Lymph % (Auto) [place] % (Auto) Eos % (Auto) Lymph # [place] # Lymph # (Auto) [place] # (Auto) Eos # (Auto) Seg Neutrophils % Seg Neuts % (Manual) Lymphocytes % (Manual) Seg Neutrophils # Seg Neutrophils # Man Lymphocytes # (Manual) Monocytes % (Manual) Eosinophils % (Manual) Monocytes # (Manual) Eosinophils # (Manual) D-Dimer Heparin Anti-Xa Level ABG pH POC ABG pCO2 POC ABG pO2 ABG pO2 ABG HCO3 ABG O2 Saturation ABG Base Excess ABG Hemoglobin ABG Oxyhemoglobin VBG pH ABG Sodium ABG Potassium ABG Glucose Oxyhemoglobin Sodium Potassium Chloride Carbon Dioxide BUN Creatinine Glucose POC Glucose 130 H 207 H 175 H Lactic Acid Calcium Ferritin AST Alkaline Phosphatase Magnesium Lactate Dehydrogenase Total Creatine Kinase CK-MB (CK-2) C-Reactive Protein Total Protein Albumin Troponin T HDL Cholesterol Arterial Blood Glucose Urine WBC (Auto) Urine Creatinine Urine Total Protein Phenytoin Coronavirus (PCR) Crossmatch 06/19/20 06/19/20 06/20/20 11:42 22:54 05:17 WBC RBC Hgb Hct MCHC RDW Lymph % (Auto) [place] % (Auto) Eos % (Auto) Lymph # [place] # Lymph # (Auto) [place] # (Auto) Eos # (Auto) Seg Neutrophils % Seg Neuts % (Manual) Lymphocytes % (Manual) Seg Neutrophils # Seg Neutrophils # Man Lymphocytes # (Manual) Monocytes % (Manual) Eosinophils % (Manual) Monocytes # (Manual) Eosinophils # (Manual) D-Dimer Heparin Anti-Xa Level ABG pH POC ABG pCO2 POC ABG pO2 ABG pO2 ABG HCO3 ABG O2 Saturation ABG Base Excess ABG Hemoglobin ABG Oxyhemoglobin VBG pH ABG Sodium ABG Potassium ABG Glucose Oxyhemoglobin Sodium Potassium Chloride Carbon Dioxide BUN Creatinine Glucose POC Glucose 166 H 135 H 218 H Lactic Acid Calcium Ferritin AST Alkaline Phosphatase Magnesium Lactate Dehydrogenase Total Creatine Kinase CK-MB (CK-2) C-Reactive Protein Total Protein Albumin Troponin T HDL Cholesterol Arterial Blood Glucose Urine WBC (Auto) Urine Creatinine Urine Total Protein Phenytoin Coronavirus (PCR) Crossmatch 06/20/20 06/20/20 06/20/20 12:04 16:25 16:35 WBC RBC Hgb Hct MCHC RDW Lymph % (Auto) [place] % (Auto) Eos % (Auto) Lymph # [place] # Lymph # (Auto) [place] # (Auto) Eos # (Auto) Seg Neutrophils % Seg Neuts % (Manual) Lymphocytes % (Manual) Seg Neutrophils # Seg Neutrophils # Man Lymphocytes # (Manual) Monocytes % (Manual) Eosinophils % (Manual) Monocytes # (Manual) Eosinophils # (Manual) D-Dimer Heparin Anti-Xa Level ABG pH POC ABG pCO2 POC ABG pO2 ABG pO2 59.6 L ABG HCO3 28.7 H ABG O2 Saturation 93.5 L ABG Base Excess 3.4 H ABG Hemoglobin 7.2 L ABG Oxyhemoglobin VBG pH ABG Sodium ABG Potassium ABG Glucose Oxyhemoglobin 91.3 L Sodium Potassium Chloride Carbon Dioxide BUN Creatinine Glucose POC Glucose 194 H 137 H Lactic Acid Calcium Ferritin AST Alkaline Phosphatase Magnesium Lactate Dehydrogenase Total Creatine Kinase CK-MB (CK-2) C-Reactive Protein Total Protein Albumin Troponin T HDL Cholesterol Arterial Blood Glucose Urine WBC (Auto) Urine Creatinine Urine Total Protein Phenytoin Coronavirus (PCR) Crossmatch 06/20/20 06/21/20 06/21/20 23:59 06:25 12:01 WBC RBC Hgb Hct MCHC RDW Lymph % (Auto) [place] % (Auto) Eos % (Auto) Lymph # [place] # Lymph # (Auto) [place] # (Auto) Eos # (Auto) Seg Neutrophils % Seg Neuts % (Manual) Lymphocytes % (Manual) Seg Neutrophils # Seg Neutrophils # Man Lymphocytes # (Manual) Monocytes % (Manual) Eosinophils % (Manual) Monocytes # (Manual) Eosinophils # (Manual) D-Dimer Heparin Anti-Xa Level ABG pH POC ABG pCO2 POC ABG pO2 ABG pO2 ABG HCO3 ABG O2 Saturation ABG Base Excess ABG Hemoglobin ABG Oxyhemoglobin VBG pH ABG Sodium ABG Potassium ABG Glucose Oxyhemoglobin Sodium Potassium Chloride Carbon Dioxide BUN Creatinine Glucose POC Glucose 156 H 177 H 195 H Lactic Acid Calcium Ferritin AST Alkaline Phosphatase Magnesium Lactate Dehydrogenase Total Creatine Kinase CK-MB (CK-2) C-Reactive Protein Total Protein Albumin Troponin T HDL Cholesterol Arterial Blood Glucose Urine WBC (Auto) Urine Creatinine Urine Total Protein Phenytoin Coronavirus (PCR) Crossmatch 06/21/20 06/21/20 06/22/20 17:04 21:51 05:06 WBC RBC Hgb Hct MCHC RDW Lymph % (Auto) [place] % (Auto) Eos % (Auto) Lymph # [place] # Lymph # (Auto) [place] # (Auto) Eos # (Auto) Seg Neutrophils % Seg Neuts % (Manual) Lymphocytes % (Manual) Seg Neutrophils # Seg Neutrophils # Man Lymphocytes # (Manual) Monocytes % (Manual) Eosinophils % (Manual) Monocytes # (Manual) Eosinophils # (Manual) D-Dimer Heparin Anti-Xa Level ABG pH POC ABG pCO2 POC ABG pO2 ABG pO2 ABG HCO3 ABG O2 Saturation ABG Base Excess ABG Hemoglobin ABG Oxyhemoglobin VBG pH ABG Sodium ABG Potassium ABG Glucose Oxyhemoglobin Sodium Potassium Chloride Carbon Dioxide BUN Creatinine Glucose POC Glucose 156 H 154 H 167 H Lactic Acid Calcium Ferritin AST Alkaline Phosphatase Magnesium Lactate Dehydrogenase Total Creatine Kinase CK-MB (CK-2) C-Reactive Protein Total Protein Albumin Troponin T HDL Cholesterol Arterial Blood Glucose Urine WBC (Auto) Urine Creatinine Urine Total Protein Phenytoin Coronavirus (PCR) Crossmatch 06/22/20 06/22/20 06/22/20 11:20 15:27 16:58 WBC RBC Hgb Hct MCHC RDW Lymph % (Auto) [place] % (Auto) Eos % (Auto) Lymph # [place] # Lymph # (Auto) [place] # (Auto) Eos # (Auto) Seg Neutrophils % Seg Neuts % (Manual) Lymphocytes % (Manual) Seg Neutrophils # Seg Neutrophils # Man Lymphocytes # (Manual) Monocytes % (Manual) Eosinophils % (Manual) Monocytes # (Manual) Eosinophils # (Manual) D-Dimer Heparin Anti-Xa Level ABG pH 7.206 L POC ABG pCO2 79.9 H POC ABG pO2 ABG pO2 ABG HCO3 ABG O2 Saturation ABG Base Excess ABG Hemoglobin 8.3 L ABG Oxyhemoglobin VBG pH ABG Sodium ABG Potassium ABG Glucose Oxyhemoglobin Sodium Potassium Chloride Carbon Dioxide BUN Creatinine Glucose POC Glucose 181 H 230 H Lactic Acid Calcium Ferritin AST Alkaline Phosphatase Magnesium Lactate Dehydrogenase Total Creatine Kinase CK-MB (CK-2) C-Reactive Protein Total Protein Albumin Troponin T HDL Cholesterol Arterial Blood Glucose Urine WBC (Auto) Urine Creatinine Urine Total Protein Phenytoin Coronavirus (PCR) Crossmatch 06/22/20 06/23/20 06/23/20 22:26 05:49 05:49 WBC RBC 2.58 L Hgb 7.4 L Hct 23.2 L MCHC RDW 17.0 H Lymph % (Auto) [place] % (Auto) 11.2 H Eos % (Auto) Lymph # 1.0 L [place] # Lymph # (Auto) [place] # (Auto) Eos # (Auto) Seg Neutrophils % Seg Neuts % (Manual) Lymphocytes % (Manual) Seg Neutrophils # Seg Neutrophils # Man Lymphocytes # (Manual) Monocytes % (Manual) Eosinophils % (Manual) Monocytes # (Manual) Eosinophils # (Manual) D-Dimer Heparin Anti-Xa Level ABG pH POC ABG pCO2 POC ABG pO2 ABG pO2 ABG HCO3 ABG O2 Saturation ABG Base Excess ABG Hemoglobin ABG Oxyhemoglobin VBG pH ABG Sodium ABG Potassium ABG Glucose Oxyhemoglobin Sodium Potassium Chloride Carbon Dioxide BUN 68 H Creatinine 2.4 H Glucose 198 H POC Glucose 195 H Lactic Acid Calcium Ferritin AST Alkaline Phosphatase Magnesium Lactate Dehydrogenase Total Creatine Kinase CK-MB (CK-2) C-Reactive Protein Total Protein Albumin Troponin T HDL Cholesterol Arterial Blood Glucose Urine WBC (Auto) Urine Creatinine Urine Total Protein Phenytoin Coronavirus (PCR) Crossmatch 06/23/20 06/23/20 06/23/20 05:50 12:29 12:34 WBC RBC Hgb Hct MCHC RDW Lymph % (Auto) [place] % (Auto) Eos % (Auto) Lymph # [place] # Lymph # (Auto) [place] # (Auto) Eos # (Auto) Seg Neutrophils % Seg Neuts % (Manual) Lymphocytes % (Manual) Seg Neutrophils # Seg Neutrophils # Man Lymphocytes # (Manual) Monocytes % (Manual) Eosinophils % (Manual) Monocytes # (Manual) Eosinophils # (Manual) D-Dimer Heparin Anti-Xa Level ABG pH POC ABG pCO2 54.7 H POC ABG pO2 68.8 L ABG pO2 ABG HCO3 ABG O2 Saturation ABG Base Excess ABG Hemoglobin 9.8 L ABG Oxyhemoglobin 92.6 L VBG pH ABG Sodium ABG Potassium ABG Glucose Oxyhemoglobin Sodium Potassium Chloride Carbon Dioxide BUN Creatinine Glucose POC Glucose 202 H 218 H Lactic Acid Calcium Ferritin AST Alkaline Phosphatase Magnesium Lactate Dehydrogenase Total Creatine Kinase CK-MB (CK-2) C-Reactive Protein Total Protein Albumin Troponin T HDL Cholesterol Arterial Blood Glucose Urine WBC (Auto) Urine Creatinine Urine Total Protein Phenytoin Coronavirus (PCR) Crossmatch 06/23/20 06/23/20 06/24/20 16:02 22:22 01:06 WBC RBC Hgb Hct MCHC RDW Lymph % (Auto) [place] % (Auto) Eos % (Auto) Lymph # [place] # Lymph # (Auto) [place] # (Auto) Eos # (Auto) Seg Neutrophils % Seg Neuts % (Manual) Lymphocytes % (Manual) Seg Neutrophils # Seg Neutrophils # Man Lymphocytes # (Manual) Monocytes % (Manual) Eosinophils % (Manual) Monocytes # (Manual) Eosinophils # (Manual) D-Dimer Heparin Anti-Xa Level ABG pH POC ABG pCO2 POC ABG pO2 ABG pO2 ABG HCO3 ABG O2 Saturation ABG Base Excess ABG Hemoglobin ABG Oxyhemoglobin VBG pH ABG Sodium ABG Potassium ABG Glucose Oxyhemoglobin Sodium Potassium Chloride Carbon Dioxide BUN Creatinine Glucose POC Glucose 190 H 166 H 171 H Lactic Acid Calcium Ferritin AST Alkaline Phosphatase Magnesium Lactate Dehydrogenase Total Creatine Kinase CK-MB (CK-2) C-Reactive Protein Total Protein Albumin Troponin T HDL Cholesterol Arterial Blood Glucose Urine WBC (Auto) Urine Creatinine Urine Total Protein Phenytoin Coronavirus (PCR) Crossmatch 06/24/20 06/24/20 06/24/20 04:48 05:35 11:48 WBC RBC Hgb Hct MCHC RDW Lymph % (Auto) [place] % (Auto) Eos % (Auto) Lymph # [place] # Lymph # (Auto) [place] # (Auto) Eos # (Auto) Seg Neutrophils % Seg Neuts % (Manual) Lymphocytes % (Manual) Seg Neutrophils # Seg Neutrophils # Man Lymphocytes # (Manual) Monocytes % (Manual) Eosinophils % (Manual) Monocytes # (Manual) Eosinophils # (Manual) D-Dimer Heparin Anti-Xa Level ABG pH POC ABG pCO2 POC ABG pO2 ABG pO2 ABG HCO3 ABG O2 Saturation ABG Base Excess ABG Hemoglobin ABG Oxyhemoglobin VBG pH ABG Sodium ABG Potassium ABG Glucose Oxyhemoglobin Sodium Potassium Chloride Carbon Dioxide BUN 75 H Creatinine 2.6 H Glucose 179 H POC Glucose 172 H 153 H Lactic Acid Calcium Ferritin AST Alkaline Phosphatase Magnesium Lactate Dehydrogenase Total Creatine Kinase CK-MB (CK-2) C-Reactive Protein Total Protein Albumin Troponin T HDL Cholesterol Arterial Blood Glucose Urine WBC (Auto) Urine Creatinine Urine Total Protein Phenytoin Coronavirus (PCR) Crossmatch 06/24/20 06/24/20 06/25/20 16:38 21:52 12:00 WBC RBC Hgb Hct MCHC RDW Lymph % (Auto) [place] % (Auto) Eos % (Auto) Lymph # [place] # Lymph # (Auto) [place] # (Auto) Eos # (Auto) Seg Neutrophils % Seg Neuts % (Manual) Lymphocytes % (Manual) Seg Neutrophils # Seg Neutrophils # Man Lymphocytes # (Manual) Monocytes % (Manual) Eosinophils % (Manual) Monocytes # (Manual) Eosinophils # (Manual) D-Dimer Heparin Anti-Xa Level ABG pH POC ABG pCO2 POC ABG pO2 ABG pO2 ABG HCO3 ABG O2 Saturation ABG Base Excess ABG Hemoglobin ABG Oxyhemoglobin VBG pH ABG Sodium ABG Potassium ABG Glucose Oxyhemoglobin Sodium Potassium Chloride Carbon Dioxide BUN Creatinine Glucose POC Glucose 123 H 115 H 203 H Lactic Acid Calcium Ferritin AST Alkaline Phosphatase Magnesium Lactate Dehydrogenase Total Creatine Kinase CK-MB (CK-2) C-Reactive Protein Total Protein Albumin Troponin T HDL Cholesterol Arterial Blood Glucose Urine WBC (Auto) Urine Creatinine Urine Total Protein Phenytoin Coronavirus (PCR) Crossmatch 06/25/20 06/25/20 06/25/20 15:43 16:37 23:02 WBC RBC Hgb Hct MCHC RDW Lymph % (Auto) [place] % (Auto) Eos % (Auto) Lymph # [place] # Lymph # (Auto) [place] # (Auto) Eos # (Auto) Seg Neutrophils % Seg Neuts % (Manual) Lymphocytes % (Manual) Seg Neutrophils # Seg Neutrophils # Man Lymphocytes # (Manual) Monocytes % (Manual) Eosinophils % (Manual) Monocytes # (Manual) Eosinophils # (Manual) D-Dimer Heparin Anti-Xa Level ABG pH POC ABG pCO2 POC ABG pO2 ABG pO2 ABG HCO3 ABG O2 Saturation ABG Base Excess ABG Hemoglobin ABG Oxyhemoglobin VBG pH ABG Sodium ABG Potassium ABG Glucose Oxyhemoglobin Sodium Potassium Chloride Carbon Dioxide BUN 71 H Creatinine 1.8 H Glucose 170 H POC Glucose 191 H 126 H Lactic Acid Calcium 8.2 L Ferritin AST Alkaline Phosphatase Magnesium Lactate Dehydrogenase Total Creatine Kinase CK-MB (CK-2) C-Reactive Protein Total Protein Albumin Troponin T HDL Cholesterol Arterial Blood Glucose Urine WBC (Auto) Urine Creatinine Urine Total Protein Phenytoin Coronavirus (PCR) Crossmatch 06/26/20 06/26/20 06/26/20 06:34 06:34 09:27 WBC RBC 2.41 L Hgb 6.9 L Hct 21.5 L MCHC RDW 16.7 H Lymph % (Auto) 10.9 L [place] % (Auto) 9.6 H Eos % (Auto) Lymph # 0.7 L [place] # Lymph # (Auto) [place] # (Auto) Eos # (Auto) Seg Neutrophils % 75.4 H Seg Neuts % (Manual) Lymphocytes % (Manual) Seg Neutrophils # Seg Neutrophils # Man Lymphocytes # (Manual) Monocytes % (Manual) Eosinophils % (Manual) Monocytes # (Manual) Eosinophils # (Manual) D-Dimer Heparin Anti-Xa Level ABG pH POC ABG pCO2 POC ABG pO2 ABG pO2 ABG HCO3 ABG O2 Saturation ABG Base Excess ABG Hemoglobin ABG Oxyhemoglobin VBG pH ABG Sodium ABG Potassium ABG Glucose Oxyhemoglobin Sodium Potassium Chloride Carbon Dioxide BUN 77 H Creatinine 1.9 H Glucose 190 H POC Glucose Lactic Acid Calcium Ferritin AST Alkaline Phosphatase Magnesium Lactate Dehydrogenase Total Creatine Kinase CK-MB (CK-2) C-Reactive Protein Total Protein Albumin Troponin T HDL Cholesterol Arterial Blood Glucose Urine WBC (Auto) Urine Creatinine Urine Total Protein Phenytoin Coronavirus (PCR) Crossmatch See Detail 06/26/20 06/26/20 06/26/20 12:15 16:28 17:28 WBC RBC Hgb Hct MCHC RDW Lymph % (Auto) [place] % (Auto) Eos % (Auto) Lymph # [place] # Lymph # (Auto) [place] # (Auto) Eos # (Auto) Seg Neutrophils % Seg Neuts % (Manual) Lymphocytes % (Manual) Seg Neutrophils # Seg Neutrophils # Man Lymphocytes # (Manual) Monocytes % (Manual) Eosinophils % (Manual) Monocytes # (Manual) Eosinophils # (Manual) D-Dimer Heparin Anti-Xa Level ABG pH POC ABG pCO2 POC ABG pO2 ABG pO2 ABG HCO3 ABG O2 Saturation ABG Base Excess ABG Hemoglobin ABG Oxyhemoglobin VBG pH ABG Sodium ABG Potassium ABG Glucose Oxyhemoglobin Sodium Potassium Chloride Carbon Dioxide BUN Creatinine Glucose POC Glucose 187 H 149 H 189 H Lactic Acid Calcium Ferritin AST Alkaline Phosphatase Magnesium Lactate Dehydrogenase Total Creatine Kinase CK-MB (CK-2) C-Reactive Protein Total Protein Albumin Troponin T HDL Cholesterol Arterial Blood Glucose Urine WBC (Auto) Urine Creatinine Urine Total Protein Phenytoin Coronavirus (PCR) Crossmatch 06/26/20 06/26/20 06/26/20 18:30 18:30 18:30 WBC RBC 2.87 L Hgb 8.2 L Hct 25.9 L MCHC RDW 17.8 H Lymph % (Auto) [place] % (Auto) Eos % (Auto) Lymph # [place] # Lymph # (Auto) [place] # (Auto) Eos # (Auto) Seg Neutrophils % Seg Neuts % (Manual) 83.0 H Lymphocytes % (Manual) 8.0 L Seg Neutrophils # Seg Neutrophils # Man Lymphocytes # (Manual) 0.6 L Monocytes % (Manual) Eosinophils % (Manual) Monocytes # (Manual) Eosinophils # (Manual) D-Dimer Heparin Anti-Xa Level ABG pH POC ABG pCO2 POC ABG pO2 ABG pO2 ABG HCO3 ABG O2 Saturation ABG Base Excess ABG Hemoglobin ABG Oxyhemoglobin VBG pH ABG Sodium ABG Potassium ABG Glucose Oxyhemoglobin Sodium Potassium Chloride Carbon Dioxide BUN 80 H Creatinine 2.1 H Glucose 260 H POC Glucose Lactic Acid 4.30 H* Calcium 8.3 L Ferritin AST Alkaline Phosphatase Magnesium Lactate Dehydrogenase Total Creatine Kinase CK-MB (CK-2) C-Reactive Protein Total Protein Albumin Troponin T HDL Cholesterol Arterial Blood Glucose Urine WBC (Auto) Urine Creatinine Urine Total Protein Phenytoin Coronavirus (PCR) Crossmatch 06/26/20 06/27/20 06/27/20 18:50 01:00 04:29 WBC RBC Hgb Hct MCHC RDW Lymph % (Auto) [place] % (Auto) Eos % (Auto) Lymph # [place] # Lymph # (Auto) [place] # (Auto) Eos # (Auto) Seg Neutrophils % Seg Neuts % (Manual) Lymphocytes % (Manual) Seg Neutrophils # Seg Neutrophils # Man Lymphocytes # (Manual) Monocytes % (Manual) Eosinophils % (Manual) Monocytes # (Manual) Eosinophils # (Manual) D-Dimer Heparin Anti-Xa Level ABG pH 7.296 L POC ABG pCO2 POC ABG pO2 ABG pO2 116.5 H 200.5 H ABG HCO3 28.4 H ABG O2 Saturation 99.3 H ABG Base Excess 3.7 H ABG Hemoglobin 5.6 L ABG Oxyhemoglobin VBG pH ABG Sodium ABG Potassium ABG Glucose Oxyhemoglobin Sodium Potassium Chloride Carbon Dioxide BUN Creatinine Glucose POC Glucose 123 H Lactic Acid Calcium Ferritin AST Alkaline Phosphatase Magnesium Lactate Dehydrogenase Total Creatine Kinase CK-MB (CK-2) C-Reactive Protein Total Protein Albumin Troponin T HDL Cholesterol Arterial Blood Glucose Urine WBC (Auto) Urine Creatinine Urine Total Protein Phenytoin Coronavirus (PCR) Crossmatch 06/27/20 06/27/20 06/27/20 05:00 05:00 05:00 WBC RBC 2.75 L Hgb 7.9 L Hct 24.3 L MCHC RDW 17.1 H Lymph % (Auto) 8.5 L [place] % (Auto) 12.6 H Eos % (Auto) Lymph # 0.7 L [place] # 1.0 H Lymph # (Auto) [place] # (Auto) Eos # (Auto) Seg Neutrophils % 77.5 H Seg Neuts % (Manual) Lymphocytes % (Manual) Seg Neutrophils # Seg Neutrophils # Man Lymphocytes # (Manual) Monocytes % (Manual) Eosinophils % (Manual) Monocytes # (Manual) Eosinophils # (Manual) D-Dimer Heparin Anti-Xa Level ABG pH POC ABG pCO2 POC ABG pO2 ABG pO2 ABG HCO3 ABG O2 Saturation ABG Base Excess ABG Hemoglobin ABG Oxyhemoglobin VBG pH ABG Sodium ABG Potassium ABG Glucose Oxyhemoglobin Sodium Potassium Chloride Carbon Dioxide BUN 80 H Creatinine 2.0 H Glucose 129 H POC Glucose Lactic Acid 0.60 L Calcium 7.9 L Ferritin AST Alkaline Phosphatase Magnesium Lactate Dehydrogenase Total Creatine Kinase CK-MB (CK-2) C-Reactive Protein Total Protein Albumin Troponin T HDL Cholesterol Arterial Blood Glucose Urine WBC (Auto) Urine Creatinine Urine Total Protein Phenytoin Coronavirus (PCR) Crossmatch 09/19/20 09/19/20 09/19/20 05:23 13:46 17:25 WBC RBC Hgb Hct MCHC RDW Lymph % (Auto) [place] % (Auto) Eos % (Auto) Lymph # [place] # Lymph # (Auto) [place] # (Auto) Eos # (Auto) Seg Neutrophils % Seg Neuts % (Manual) Lymphocytes % (Manual) Seg Neutrophils # Seg Neutrophils # Man Lymphocytes # (Manual) Monocytes % (Manual) Eosinophils % (Manual) Monocytes # (Manual) Eosinophils # (Manual) D-Dimer Heparin Anti-Xa Level ABG pH POC ABG pCO2 POC ABG pO2 ABG pO2 ABG HCO3 ABG O2 Saturation ABG Base Excess ABG Hemoglobin ABG Oxyhemoglobin VBG pH ABG Sodium ABG Potassium ABG Glucose Oxyhemoglobin Sodium Potassium Chloride Carbon Dioxide BUN Creatinine Glucose POC Glucose 109 H 158 H 162 H Lactic Acid Calcium Ferritin AST Alkaline Phosphatase Magnesium Lactate Dehydrogenase Total Creatine Kinase CK-MB (CK-2) C-Reactive Protein Total Protein Albumin Troponin T HDL Cholesterol Arterial Blood Glucose Urine WBC (Auto) Urine Creatinine Urine Total Protein Phenytoin Coronavirus (PCR) Crossmatch 06/27/20 06/27/20 06/28/20 18:43 23:46 04:05 WBC RBC Hgb 7.7 L Hct 22.1 L MCHC RDW Lymph % (Auto) [place] % (Auto) Eos % (Auto) Lymph # [place] # Lymph # (Auto) [place] # (Auto) Eos # (Auto) Seg Neutrophils % Seg Neuts % (Manual) Lymphocytes % (Manual) Seg Neutrophils # Seg Neutrophils # Man Lymphocytes # (Manual) Monocytes % (Manual) Eosinophils % (Manual) Monocytes # (Manual) Eosinophils # (Manual) D-Dimer Heparin Anti-Xa Level ABG pH POC ABG pCO2 POC ABG pO2 ABG pO2 102.7 H ABG HCO3 28.7 H ABG O2 Saturation ABG Base Excess 3.7 H ABG Hemoglobin ABG Oxyhemoglobin VBG pH ABG Sodium ABG Potassium ABG Glucose Oxyhemoglobin Sodium Potassium Chloride Carbon Dioxide BUN Creatinine Glucose POC Glucose 142 H Lactic Acid Calcium Ferritin AST Alkaline Phosphatase Magnesium Lactate Dehydrogenase Total Creatine Kinase CK-MB (CK-2) C-Reactive Protein Total Protein Albumin Troponin T HDL Cholesterol Arterial Blood Glucose Urine WBC (Auto) Urine Creatinine Urine Total Protein Phenytoin Coronavirus (PCR) Crossmatch 06/28/20 06/28/20 06/28/20 09:47 09:47 12:02 WBC RBC 2.53 L Hgb 7.4 L Hct 22.2 L MCHC RDW 16.8 H Lymph % (Auto) [place] % (Auto) 13.5 H Eos % (Auto) Lymph # 1.1 L [place] # 1.0 H Lymph # (Auto) [place] # (Auto) Eos # (Auto) Seg Neutrophils % Seg Neuts % (Manual) Lymphocytes % (Manual) Seg Neutrophils # Seg Neutrophils # Man Lymphocytes # (Manual) Monocytes % (Manual) Eosinophils % (Manual) Monocytes # (Manual) Eosinophils # (Manual) D-Dimer Heparin Anti-Xa Level ABG pH POC ABG pCO2 POC ABG pO2 ABG pO2 ABG HCO3 ABG O2 Saturation ABG Base Excess ABG Hemoglobin ABG Oxyhemoglobin VBG pH ABG Sodium ABG Potassium ABG Glucose Oxyhemoglobin Sodium Potassium Chloride Carbon Dioxide BUN 80 H Creatinine 1.5 H Glucose 139 H POC Glucose 169 H Lactic Acid Calcium 7.9 L Ferritin AST Alkaline Phosphatase Magnesium Lactate Dehydrogenase Total Creatine Kinase CK-MB (CK-2) C-Reactive Protein Total Protein 5.0 L Albumin 2.1 L Troponin T HDL Cholesterol Arterial Blood Glucose Urine WBC (Auto) Urine Creatinine Urine Total Protein Phenytoin Coronavirus (PCR) Crossmatch 06/28/20 06/28/20 06/28/20 12:30 12:30 17:24 WBC RBC 2.38 L Hgb 7.3 L Hct 20.9 L MCHC 35 H RDW 16.7 H Lymph % (Auto) [place] % (Auto) Eos % (Auto) Lymph # [place] # Lymph # (Auto) [place] # (Auto) Eos # (Auto) Seg Neutrophils % Seg Neuts % (Manual) Lymphocytes % (Manual) Seg Neutrophils # Seg Neutrophils # Man Lymphocytes # (Manual) Monocytes % (Manual) Eosinophils % (Manual) Monocytes # (Manual) Eosinophils # (Manual) D-Dimer Heparin Anti-Xa Level ABG pH POC ABG pCO2 POC ABG pO2 ABG pO2 ABG HCO3 ABG O2 Saturation ABG Base Excess ABG Hemoglobin ABG Oxyhemoglobin VBG pH ABG Sodium ABG Potassium ABG Glucose Oxyhemoglobin Sodium Potassium Chloride Carbon Dioxide BUN 74 H Creatinine 1.5 H Glucose 143 H POC Glucose 173 H Lactic Acid Calcium 7.5 L Ferritin AST Alkaline Phosphatase Magnesium Lactate Dehydrogenase Total Creatine Kinase CK-MB (CK-2) C-Reactive Protein Total Protein Albumin Troponin T HDL Cholesterol Arterial Blood Glucose Urine WBC (Auto) Urine Creatinine Urine Total Protein Phenytoin Coronavirus (PCR) Crossmatch 06/29/20 06/29/20 06/29/20 00:02 03:54 04:38 WBC RBC 2.55 L Hgb 7.3 L Hct 22.4 L MCHC RDW 16.4 H Lymph % (Auto) 13.3 L [place] % (Auto) 12.5 H Eos % (Auto) Lymph # 1.1 L [place] # 1.0 H Lymph # (Auto) [place] # (Auto) Eos # (Auto) Seg Neutrophils % Seg Neuts % (Manual) Lymphocytes % (Manual) Seg Neutrophils # Seg Neutrophils # Man Lymphocytes # (Manual) Monocytes % (Manual) Eosinophils % (Manual) Monocytes # (Manual) Eosinophils # (Manual) D-Dimer Heparin Anti-Xa Level ABG pH POC ABG pCO2 POC ABG pO2 ABG pO2 ABG HCO3 26.9 H ABG O2 Saturation ABG Base Excess ABG Hemoglobin 6.9 L ABG Oxyhemoglobin VBG pH ABG Sodium ABG Potassium ABG Glucose Oxyhemoglobin Sodium Potassium Chloride Carbon Dioxide BUN Creatinine Glucose POC Glucose 142 H Lactic Acid Calcium Ferritin AST Alkaline Phosphatase Magnesium Lactate Dehydrogenase Total Creatine Kinase CK-MB (CK-2) C-Reactive Protein Total Protein Albumin Troponin T HDL Cholesterol Arterial Blood Glucose Urine WBC (Auto) Urine Creatinine Urine Total Protein Phenytoin Coronavirus (PCR) Crossmatch 06/29/20 06/29/20 06/29/20 04:38 05:38 12:25 WBC RBC Hgb Hct MCHC RDW Lymph % (Auto) [place] % (Auto) Eos % (Auto) Lymph # [place] # Lymph # (Auto) [place] # (Auto) Eos # (Auto) Seg Neutrophils % Seg Neuts % (Manual) Lymphocytes % (Manual) Seg Neutrophils # Seg Neutrophils # Man Lymphocytes # (Manual) Monocytes % (Manual) Eosinophils % (Manual) Monocytes # (Manual) Eosinophils # (Manual) D-Dimer Heparin Anti-Xa Level ABG pH POC ABG pCO2 POC ABG pO2 ABG pO2 ABG HCO3 ABG O2 Saturation ABG Base Excess ABG Hemoglobin ABG Oxyhemoglobin VBG pH ABG Sodium ABG Potassium ABG Glucose Oxyhemoglobin Sodium Potassium Chloride 107.8 H Carbon Dioxide BUN 72 H Creatinine 1.4 H Glucose 127 H POC Glucose 122 H 138 H Lactic Acid Calcium 7.4 L Ferritin AST Alkaline Phosphatase Magnesium Lactate Dehydrogenase Total Creatine Kinase CK-MB (CK-2) C-Reactive Protein Total Protein Albumin Troponin T HDL Cholesterol Arterial Blood Glucose Urine WBC (Auto) Urine Creatinine Urine Total Protein Phenytoin Coronavirus (PCR) Crossmatch 06/29/20 06/29/20 06/29/20 14:45 14:45 14:45 WBC RBC Hgb Hct MCHC RDW Lymph % (Auto) [place] % (Auto) Eos % (Auto) Lymph # [place] # Lymph # (Auto) [place] # (Auto) Eos # (Auto) Seg Neutrophils % Seg Neuts % (Manual) Lymphocytes % (Manual) Seg Neutrophils # Seg Neutrophils # Man Lymphocytes # (Manual) Monocytes % (Manual) Eosinophils % (Manual) Monocytes # (Manual) Eosinophils # (Manual) D-Dimer 2310.15 H Heparin Anti-Xa Level ABG pH POC ABG pCO2 POC ABG pO2 ABG pO2 ABG HCO3 ABG O2 Saturation ABG Base Excess ABG Hemoglobin ABG Oxyhemoglobin VBG pH ABG Sodium ABG Potassium ABG Glucose Oxyhemoglobin Sodium Potassium Chloride Carbon Dioxide BUN Creatinine Glucose POC Glucose Lactic Acid Calcium Ferritin 223.6 H AST Alkaline Phosphatase Magnesium Lactate Dehydrogenase 367 H Total Creatine Kinase CK-MB (CK-2) C-Reactive Protein 3.60 H Total Protein Albumin Troponin T HDL Cholesterol Arterial Blood Glucose Urine WBC (Auto) Urine Creatinine Urine Total Protein Phenytoin Coronavirus (PCR) Crossmatch 06/29/20 06/29/20 06/29/20 18:27 23:35 Unknown WBC RBC Hgb Hct MCHC RDW Lymph % (Auto) [place] % (Auto) Eos % (Auto) Lymph # [place] # Lymph # (Auto) [place] # (Auto) Eos # (Auto) Seg Neutrophils % Seg Neuts % (Manual) Lymphocytes % (Manual) Seg Neutrophils # Seg Neutrophils # Man Lymphocytes # (Manual) Monocytes % (Manual) Eosinophils % (Manual) Monocytes # (Manual) Eosinophils # (Manual) D-Dimer Heparin Anti-Xa Level ABG pH POC ABG pCO2 POC ABG pO2 ABG pO2 ABG HCO3 ABG O2 Saturation ABG Base Excess ABG Hemoglobin ABG Oxyhemoglobin VBG pH ABG Sodium ABG Potassium ABG Glucose Oxyhemoglobin Sodium Potassium Chloride Carbon Dioxide BUN Creatinine Glucose POC Glucose 112 H 140 H Lactic Acid Calcium Ferritin AST Alkaline Phosphatase Magnesium Lactate Dehydrogenase Total Creatine Kinase CK-MB (CK-2) C-Reactive Protein Total Protein Albumin Troponin T HDL Cholesterol Arterial Blood Glucose Urine WBC (Auto) Urine Creatinine Urine Total Protein Phenytoin Coronavirus (PCR) Positive A Crossmatch 06/30/20 06/30/20 06/30/20 04:10 04:10 06:09 WBC RBC 2.44 L Hgb 7.1 L Hct 21.5 L MCHC RDW 16.6 H Lymph % (Auto) 11.0 L [place] % (Auto) 10.8 H Eos % (Auto) Lymph # 0.9 L [place] # 0.9 H Lymph # (Auto) [place] # (Auto) Eos # (Auto) Seg Neutrophils % 73.7 H Seg Neuts % (Manual) Lymphocytes % (Manual) Seg Neutrophils # Seg Neutrophils # Man Lymphocytes # (Manual) Monocytes % (Manual) Eosinophils % (Manual) Monocytes # (Manual) Eosinophils # (Manual) D-Dimer Heparin Anti-Xa Level ABG pH POC ABG pCO2 POC ABG pO2 ABG pO2 ABG HCO3 ABG O2 Saturation ABG Base Excess ABG Hemoglobin ABG Oxyhemoglobin VBG pH ABG Sodium ABG Potassium ABG Glucose Oxyhemoglobin Sodium Potassium Chloride 109.1 H Carbon Dioxide BUN 74 H Creatinine 1.3 H Glucose 191 H POC Glucose 187 H Lactic Acid Calcium 7.8 L Ferritin AST Alkaline Phosphatase Magnesium Lactate Dehydrogenase Total Creatine Kinase CK-MB (CK-2) C-Reactive Protein Total Protein Albumin Troponin T HDL Cholesterol Arterial Blood Glucose Urine WBC (Auto) Urine Creatinine Urine Total Protein Phenytoin Coronavirus (PCR) Crossmatch 06/30/20 06/30/20 06/30/20 12:04 17:43 23:41 WBC RBC Hgb Hct MCHC RDW Lymph % (Auto) [place] % (Auto) Eos % (Auto) Lymph # [place] # Lymph # (Auto) [place] # (Auto) Eos # (Auto) Seg Neutrophils % Seg Neuts % (Manual) Lymphocytes % (Manual) Seg Neutrophils # Seg Neutrophils # Man Lymphocytes # (Manual) Monocytes % (Manual) Eosinophils % (Manual) Monocytes # (Manual) Eosinophils # (Manual) D-Dimer Heparin Anti-Xa Level ABG pH POC ABG pCO2 POC ABG pO2 ABG pO2 ABG HCO3 ABG O2 Saturation ABG Base Excess ABG Hemoglobin ABG Oxyhemoglobin VBG pH ABG Sodium ABG Potassium ABG Glucose Oxyhemoglobin Sodium Potassium Chloride Carbon Dioxide BUN Creatinine Glucose POC Glucose 112 H 177 H 143 H Lactic Acid Calcium Ferritin AST Alkaline Phosphatase Magnesium Lactate Dehydrogenase Total Creatine Kinase CK-MB (CK-2) C-Reactive Protein Total Protein Albumin Troponin T HDL Cholesterol Arterial Blood Glucose Urine WBC (Auto) Urine Creatinine Urine Total Protein Phenytoin Coronavirus (PCR) Crossmatch 07/01/20 07/01/20 07/01/20 05:02 05:52 06:01 WBC 12.6 H RBC 2.95 L Hgb 8.2 L Hct 26.0 L MCHC RDW 16.9 H Lymph % (Auto) [place] % (Auto) Eos % (Auto) Lymph # [place] # Lymph # (Auto) [place] # (Auto) Eos # (Auto) Seg Neutrophils % Seg Neuts % (Manual) Lymphocytes % (Manual) Seg Neutrophils # Seg Neutrophils # Man 8.6 H Lymphocytes # (Manual) Monocytes % (Manual) Eosinophils % (Manual) 5.0 H Monocytes # (Manual) Eosinophils # (Manual) 0.6 H D-Dimer Heparin Anti-Xa Level ABG pH POC ABG pCO2 POC ABG pO2 ABG pO2 ABG HCO3 ABG O2 Saturation ABG Base Excess ABG Hemoglobin 8.2 L ABG Oxyhemoglobin VBG pH ABG Sodium ABG Potassium ABG Glucose Oxyhemoglobin Sodium Potassium Chloride Carbon Dioxide BUN Creatinine Glucose POC Glucose 129 H Lactic Acid Calcium Ferritin AST Alkaline Phosphatase Magnesium Lactate Dehydrogenase Total Creatine Kinase CK-MB (CK-2) C-Reactive Protein Total Protein Albumin Troponin T HDL Cholesterol Arterial Blood Glucose Urine WBC (Auto) Urine Creatinine Urine Total Protein Phenytoin Coronavirus (PCR) Crossmatch 07/01/20 07/01/20 07/01/20 06:01 06:01 06:08 WBC RBC Hgb Hct MCHC RDW Lymph % (Auto) [place] % (Auto) Eos % (Auto) Lymph # [place] # Lymph # (Auto) [place] # (Auto) Eos # (Auto) Seg Neutrophils % Seg Neuts % (Manual) Lymphocytes % (Manual) Seg Neutrophils # Seg Neutrophils # Man Lymphocytes # (Manual) Monocytes % (Manual) Eosinophils % (Manual) Monocytes # (Manual) Eosinophils # (Manual) D-Dimer Heparin Anti-Xa Level ABG pH POC ABG pCO2 POC ABG pO2 ABG pO2 ABG HCO3 ABG O2 Saturation ABG Base Excess ABG Hemoglobin ABG Oxyhemoglobin VBG pH ABG Sodium ABG Potassium ABG Glucose Oxyhemoglobin Sodium 147 H Potassium Chloride 108.0 H Carbon Dioxide BUN 71 H Creatinine 1.3 H Glucose 193 H POC Glucose 192 H Lactic Acid Calcium 8.1 L Ferritin AST Alkaline Phosphatase Magnesium Lactate Dehydrogenase Total Creatine Kinase 300 H CK-MB (CK-2) C-Reactive Protein Total Protein Albumin Troponin T 0.067 H HDL Cholesterol 61 H Arterial Blood Glucose Urine WBC (Auto) Urine Creatinine Urine Total Protein Phenytoin Coronavirus (PCR) Crossmatch 07/01/20 07/01/20 07/02/20 12:23 17:40 00:18 WBC RBC Hgb Hct MCHC RDW Lymph % (Auto) [place] % (Auto) Eos % (Auto) Lymph # [place] # Lymph # (Auto) [place] # (Auto) Eos # (Auto) Seg Neutrophils % Seg Neuts % (Manual) Lymphocytes % (Manual) Seg Neutrophils # Seg Neutrophils # Man Lymphocytes # (Manual) Monocytes % (Manual) Eosinophils % (Manual) Monocytes # (Manual) Eosinophils # (Manual) D-Dimer Heparin Anti-Xa Level ABG pH POC ABG pCO2 POC ABG pO2 ABG pO2 ABG HCO3 ABG O2 Saturation ABG Base Excess ABG Hemoglobin ABG Oxyhemoglobin VBG pH ABG Sodium ABG Potassium ABG Glucose Oxyhemoglobin Sodium Potassium Chloride Carbon Dioxide BUN Creatinine Glucose POC Glucose 111 H 135 H 145 H Lactic Acid Calcium Ferritin AST Alkaline Phosphatase Magnesium Lactate Dehydrogenase Total Creatine Kinase CK-MB (CK-2) C-Reactive Protein Total Protein Albumin Troponin T HDL Cholesterol Arterial Blood Glucose Urine WBC (Auto) Urine Creatinine Urine Total Protein Phenytoin Coronavirus (PCR) Crossmatch 07/02/20 07/02/20 07/02/20 04:11 04:23 05:54 WBC RBC Hgb Hct MCHC RDW Lymph % (Auto) [place] % (Auto) Eos % (Auto) Lymph # [place] # Lymph # (Auto) [place] # (Auto) Eos # (Auto) Seg Neutrophils % Seg Neuts % (Manual) Lymphocytes % (Manual) Seg Neutrophils # Seg Neutrophils # Man Lymphocytes # (Manual) Monocytes % (Manual) Eosinophils % (Manual) Monocytes # (Manual) Eosinophils # (Manual) D-Dimer Heparin Anti-Xa Level ABG pH POC ABG pCO2 POC ABG pO2 ABG pO2 ABG HCO3 ABG O2 Saturation ABG Base Excess ABG Hemoglobin 5.4 L ABG Oxyhemoglobin VBG pH ABG Sodium ABG Potassium ABG Glucose Oxyhemoglobin Sodium Potassium Chloride 108.6 H Carbon Dioxide BUN 72 H Creatinine Glucose 112 H POC Glucose 137 H Lactic Acid Calcium 7.8 L Ferritin AST Alkaline Phosphatase Magnesium Lactate Dehydrogenase Total Creatine Kinase CK-MB (CK-2) C-Reactive Protein Total Protein Albumin Troponin T HDL Cholesterol Arterial Blood Glucose Urine WBC (Auto) Urine Creatinine Urine Total Protein Phenytoin Coronavirus (PCR) Crossmatch 07/02/20 07/02/20 07/02/20 11:38 18:04 23:59 WBC RBC Hgb Hct MCHC RDW Lymph % (Auto) [place] % (Auto) Eos % (Auto) Lymph # [place] # Lymph # (Auto) [place] # (Auto) Eos # (Auto) Seg Neutrophils % Seg Neuts % (Manual) Lymphocytes % (Manual) Seg Neutrophils # Seg Neutrophils # Man Lymphocytes # (Manual) Monocytes % (Manual) Eosinophils % (Manual) Monocytes # (Manual) Eosinophils # (Manual) D-Dimer Heparin Anti-Xa Level ABG pH POC ABG pCO2 POC ABG pO2 ABG pO2 ABG HCO3 ABG O2 Saturation ABG Base Excess ABG Hemoglobin ABG Oxyhemoglobin VBG pH ABG Sodium ABG Potassium ABG Glucose Oxyhemoglobin Sodium Potassium Chloride Carbon Dioxide BUN Creatinine Glucose POC Glucose 128 H 135 H 156 H Lactic Acid Calcium Ferritin AST Alkaline Phosphatase Magnesium Lactate Dehydrogenase Total Creatine Kinase CK-MB (CK-2) C-Reactive Protein Total Protein Albumin Troponin T HDL Cholesterol Arterial Blood Glucose Urine WBC (Auto) Urine Creatinine Urine Total Protein Phenytoin Coronavirus (PCR) Crossmatch 07/03/20 07/03/20 07/03/20 03:49 06:00 11:31 WBC RBC Hgb Hct MCHC RDW Lymph % (Auto) [place] % (Auto) Eos % (Auto) Lymph # [place] # Lymph # (Auto) [place] # (Auto) Eos # (Auto) Seg Neutrophils % Seg Neuts % (Manual) Lymphocytes % (Manual) Seg Neutrophils # Seg Neutrophils # Man Lymphocytes # (Manual) Monocytes % (Manual) Eosinophils % (Manual) Monocytes # (Manual) Eosinophils # (Manual) D-Dimer Heparin Anti-Xa Level ABG pH POC ABG pCO2 POC ABG pO2 ABG pO2 121.0 H ABG HCO3 ABG O2 Saturation ABG Base Excess ABG Hemoglobin 8.5 L ABG Oxyhemoglobin VBG pH ABG Sodium ABG Potassium ABG Glucose Oxyhemoglobin Sodium Potassium Chloride Carbon Dioxide BUN Creatinine Glucose POC Glucose 135 H 141 H Lactic Acid Calcium Ferritin AST Alkaline Phosphatase Magnesium Lactate Dehydrogenase Total Creatine Kinase CK-MB (CK-2) C-Reactive Protein Total Protein Albumin Troponin T HDL Cholesterol Arterial Blood Glucose Urine WBC (Auto) Urine Creatinine Urine Total Protein Phenytoin Coronavirus (PCR) Crossmatch 07/03/20 07/03/20 07/03/20 16:00 16:07 17:40 WBC RBC Hgb Hct MCHC RDW Lymph % (Auto) [place] % (Auto) Eos % (Auto) Lymph # [place] # Lymph # (Auto) [place] # (Auto) Eos # (Auto) Seg Neutrophils % Seg Neuts % (Manual) Lymphocytes % (Manual) Seg Neutrophils # Seg Neutrophils # Man Lymphocytes # (Manual) Monocytes % (Manual) Eosinophils % (Manual) Monocytes # (Manual) Eosinophils # (Manual) D-Dimer Heparin Anti-Xa Level ABG pH 7.271 L POC ABG pCO2 POC ABG pO2 ABG pO2 126.9 H ABG HCO3 ABG O2 Saturation ABG Base Excess ABG Hemoglobin 8.2 L 8.1 L ABG Oxyhemoglobin VBG pH ABG Sodium 130.3 L ABG Potassium 4.9 H ABG Glucose 163 H Oxyhemoglobin Sodium Potassium Chloride Carbon Dioxide BUN Creatinine Glucose POC Glucose 120 H Lactic Acid Calcium Ferritin AST Alkaline Phosphatase Magnesium Lactate Dehydrogenase Total Creatine Kinase CK-MB (CK-2) C-Reactive Protein Total Protein Albumin Troponin T HDL Cholesterol Arterial Blood Glucose 163 H Urine WBC (Auto) Urine Creatinine Urine Total Protein Phenytoin Coronavirus (PCR) Crossmatch 07/04/20 07/04/20 07/04/20 05:49 11:54 18:00 WBC RBC Hgb Hct MCHC RDW Lymph % (Auto) [place] % (Auto) Eos % (Auto) Lymph # [place] # Lymph # (Auto) [place] # (Auto) Eos # (Auto) Seg Neutrophils % Seg Neuts % (Manual) Lymphocytes % (Manual) Seg Neutrophils # Seg Neutrophils # Man Lymphocytes # (Manual) Monocytes % (Manual) Eosinophils % (Manual) Monocytes # (Manual) Eosinophils # (Manual) D-Dimer Heparin Anti-Xa Level ABG pH POC ABG pCO2 POC ABG pO2 ABG pO2 ABG HCO3 ABG O2 Saturation ABG Base Excess ABG Hemoglobin ABG Oxyhemoglobin VBG pH ABG Sodium ABG Potassium ABG Glucose Oxyhemoglobin Sodium Potassium Chloride Carbon Dioxide BUN Creatinine Glucose POC Glucose 128 H 168 H 133 H Lactic Acid Calcium Ferritin AST Alkaline Phosphatase Magnesium Lactate Dehydrogenase Total Creatine Kinase CK-MB (CK-2) C-Reactive Protein Total Protein Albumin Troponin T HDL Cholesterol Arterial Blood Glucose Urine WBC (Auto) Urine Creatinine Urine Total Protein Phenytoin Coronavirus (PCR) Crossmatch 07/05/20 07/05/20 07/05/20 00:07 01:12 02:30 WBC RBC 2.35 L Hgb 6.9 L Hct 21.1 L MCHC RDW 16.8 H Lymph % (Auto) [place] % (Auto) Eos % (Auto) Lymph # [place] # Lymph # (Auto) [place] # (Auto) Eos # (Auto) Seg Neutrophils % Seg Neuts % (Manual) 74.0 H Lymphocytes % (Manual) 12.0 L Seg Neutrophils # Seg Neutrophils # Man 8.0 H Lymphocytes # (Manual) Monocytes % (Manual) 9.0 H Eosinophils % (Manual) Monocytes # (Manual) 1.0 H Eosinophils # (Manual) D-Dimer Heparin Anti-Xa Level ABG pH POC ABG pCO2 POC ABG pO2 ABG pO2 ABG HCO3 ABG O2 Saturation ABG Base Excess ABG Hemoglobin ABG Oxyhemoglobin VBG pH ABG Sodium ABG Potassium ABG Glucose Oxyhemoglobin Sodium Potassium Chloride Carbon Dioxide BUN Creatinine Glucose POC Glucose 121 H Lactic Acid Calcium Ferritin AST Alkaline Phosphatase Magnesium Lactate Dehydrogenase Total Creatine Kinase CK-MB (CK-2) C-Reactive Protein Total Protein Albumin Troponin T HDL Cholesterol Arterial Blood Glucose Urine WBC (Auto) Urine Creatinine Urine Total Protein Phenytoin Coronavirus (PCR) Crossmatch See Detail 07/05/20 07/05/20 07/05/20 12:09 13:05 18:04 WBC RBC Hgb Hct MCHC RDW Lymph % (Auto) [place] % (Auto) Eos % (Auto) Lymph # [place] # Lymph # (Auto) [place] # (Auto) Eos # (Auto) Seg Neutrophils % Seg Neuts % (Manual) Lymphocytes % (Manual) Seg Neutrophils # Seg Neutrophils # Man Lymphocytes # (Manual) Monocytes % (Manual) Eosinophils % (Manual) Monocytes # (Manual) Eosinophils # (Manual) D-Dimer Heparin Anti-Xa Level ABG pH 7.32 L POC ABG pCO2 POC ABG pO2 ABG pO2 78.3 L ABG HCO3 ABG O2 Saturation ABG Base Excess -2.6 L ABG Hemoglobin 7.3 L ABG Oxyhemoglobin VBG pH ABG Sodium ABG Potassium ABG Glucose Oxyhemoglobin Sodium Potassium Chloride Carbon Dioxide BUN Creatinine Glucose POC Glucose 132 H 160 H Lactic Acid Calcium Ferritin AST Alkaline Phosphatase Magnesium Lactate Dehydrogenase Total Creatine Kinase CK-MB (CK-2) C-Reactive Protein Total Protein Albumin Troponin T HDL Cholesterol Arterial Blood Glucose Urine WBC (Auto) Urine Creatinine Urine Total Protein Phenytoin Coronavirus (PCR) Crossmatch 07/05/20 07/05/20 07/05/20 23:13 23:13 23:43 WBC RBC 2.57 L Hgb 7.7 L Hct 23.0 L MCHC RDW 16.9 H Lymph % (Auto) [place] % (Auto) Eos % (Auto) Lymph # [place] # Lymph # (Auto) [place] # (Auto) Eos # (Auto) Seg Neutrophils % Seg Neuts % (Manual) Lymphocytes % (Manual) Seg Neutrophils # Seg Neutrophils # Man Lymphocytes # (Manual) Monocytes % (Manual) Eosinophils % (Manual) Monocytes # (Manual) Eosinophils # (Manual) D-Dimer Heparin Anti-Xa Level ABG pH POC ABG pCO2 POC ABG pO2 ABG pO2 ABG HCO3 ABG O2 Saturation ABG Base Excess ABG Hemoglobin ABG Oxyhemoglobin VBG pH ABG Sodium ABG Potassium ABG Glucose Oxyhemoglobin Sodium Potassium Chloride Carbon Dioxide 20 L BUN 80 H Creatinine 2.4 H D Glucose 124 H POC Glucose 121 H Lactic Acid Calcium 7.6 L Ferritin AST Alkaline Phosphatase Magnesium Lactate Dehydrogenase Total Creatine Kinase CK-MB (CK-2) C-Reactive Protein Total Protein Albumin Troponin T HDL Cholesterol Arterial Blood Glucose Urine WBC (Auto) Urine Creatinine Urine Total Protein Phenytoin Coronavirus (PCR) Crossmatch 07/06/20 07/06/20 07/06/20 13:20 14:48 17:28 WBC RBC Hgb Hct MCHC RDW Lymph % (Auto) [place] % (Auto) Eos % (Auto) Lymph # [place] # Lymph # (Auto) [place] # (Auto) Eos # (Auto) Seg Neutrophils % Seg Neuts % (Manual) Lymphocytes % (Manual) Seg Neutrophils # Seg Neutrophils # Man Lymphocytes # (Manual) Monocytes % (Manual) Eosinophils % (Manual) Monocytes # (Manual) Eosinophils # (Manual) D-Dimer Heparin Anti-Xa Level ABG pH POC ABG pCO2 POC ABG pO2 ABG pO2 ABG HCO3 ABG O2 Saturation ABG Base Excess ABG Hemoglobin ABG Oxyhemoglobin VBG pH ABG Sodium ABG Potassium ABG Glucose Oxyhemoglobin Sodium 136 L Potassium 5.5 H Chloride Carbon Dioxide 19 L BUN 82 H Creatinine 2.5 H Glucose 113 H POC Glucose 133 H Lactic Acid Calcium 7.7 L Ferritin AST Alkaline Phosphatase Magnesium Lactate Dehydrogenase Total Creatine Kinase CK-MB (CK-2) C-Reactive Protein Total Protein Albumin Troponin T HDL Cholesterol Arterial Blood Glucose Urine WBC (Auto) Urine Creatinine 33.3 H Urine Total Protein Phenytoin Coronavirus (PCR) Crossmatch 07/07/20 07/07/20 07/07/20 00:12 04:15 04:15 WBC RBC 2.28 L Hgb 6.8 L Hct 20.7 L MCHC RDW 16.8 H Lymph % (Auto) [place] % (Auto) Eos % (Auto) Lymph # [place] # Lymph # (Auto) [place] # (Auto) Eos # (Auto) Seg Neutrophils % Seg Neuts % (Manual) Lymphocytes % (Manual) 13.0 L Seg Neutrophils # Seg Neutrophils # Man Lymphocytes # (Manual) 1.0 L Monocytes % (Manual) 11.0 H Eosinophils % (Manual) Monocytes # (Manual) 0.9 H Eosinophils # (Manual) D-Dimer Heparin Anti-Xa Level ABG pH POC ABG pCO2 POC ABG pO2 ABG pO2 ABG HCO3 ABG O2 Saturation ABG Base Excess ABG Hemoglobin ABG Oxyhemoglobin VBG pH ABG Sodium ABG Potassium ABG Glucose Oxyhemoglobin Sodium Potassium Chloride Carbon Dioxide BUN Creatinine Glucose POC Glucose 154 H Lactic Acid Calcium Ferritin AST Alkaline Phosphatase Magnesium 2.50 H Lactate Dehydrogenase Total Creatine Kinase CK-MB (CK-2) C-Reactive Protein Total Protein Albumin Troponin T HDL Cholesterol Arterial Blood Glucose Urine WBC (Auto) Urine Creatinine Urine Total Protein Phenytoin Coronavirus (PCR) Crossmatch 07/07/20 07/07/20 07/07/20 05:31 12:31 13:22 WBC RBC Hgb Hct MCHC RDW Lymph % (Auto) [place] % (Auto) Eos % (Auto) Lymph # [place] # Lymph # (Auto) [place] # (Auto) Eos # (Auto) Seg Neutrophils % Seg Neuts % (Manual) Lymphocytes % (Manual) Seg Neutrophils # Seg Neutrophils # Man Lymphocytes # (Manual) Monocytes % (Manual) Eosinophils % (Manual) Monocytes # (Manual) Eosinophils # (Manual) D-Dimer Heparin Anti-Xa Level ABG pH POC ABG pCO2 POC ABG pO2 ABG pO2 ABG HCO3 ABG O2 Saturation ABG Base Excess ABG Hemoglobin ABG Oxyhemoglobin VBG pH ABG Sodium ABG Potassium ABG Glucose Oxyhemoglobin Sodium Potassium 5.6 H Chloride Carbon Dioxide BUN 86 H Creatinine 2.9 H Glucose 127 H POC Glucose 135 H 131 H Lactic Acid Calcium 8.1 L Ferritin AST Alkaline Phosphatase Magnesium Lactate Dehydrogenase Total Creatine Kinase CK-MB (CK-2) C-Reactive Protein Total Protein Albumin Troponin T HDL Cholesterol Arterial Blood Glucose Urine WBC (Auto) Urine Creatinine Urine Total Protein Phenytoin Coronavirus (PCR) Crossmatch 07/07/20 07/07/20 07/08/20 17:55 23:33 04:14 WBC RBC 3.28 L Hgb 9.7 L Hct 28.9 L D MCHC RDW 16.4 H Lymph % (Auto) 10.3 L [place] % (Auto) 10.0 H Eos % (Auto) Lymph # [place] # Lymph # (Auto) 1.1 L [place] # (Auto) 1.1 H Eos # (Auto) Seg Neutrophils % 77.2 H Seg Neuts % (Manual) Lymphocytes % (Manual) Seg Neutrophils # 8.2 H Seg Neutrophils # Man Lymphocytes # (Manual) Monocytes % (Manual) Eosinophils % (Manual) Monocytes # (Manual) Eosinophils # (Manual) D-Dimer Heparin Anti-Xa Level ABG pH POC ABG pCO2 POC ABG pO2 ABG pO2 ABG HCO3 ABG O2 Saturation ABG Base Excess ABG Hemoglobin ABG Oxyhemoglobin VBG pH ABG Sodium ABG Potassium ABG Glucose Oxyhemoglobin Sodium Potassium Chloride Carbon Dioxide BUN Creatinine Glucose POC Glucose 136 H 159 H Lactic Acid Calcium Ferritin AST Alkaline Phosphatase Magnesium Lactate Dehydrogenase Total Creatine Kinase CK-MB (CK-2) C-Reactive Protein Total Protein Albumin Troponin T HDL Cholesterol Arterial Blood Glucose Urine WBC (Auto) Urine Creatinine Urine Total Protein Phenytoin Coronavirus (PCR) Crossmatch 07/08/20 07/08/20 07/08/20 04:14 12:10 18:10 WBC RBC Hgb Hct MCHC RDW Lymph % (Auto) [place] % (Auto) Eos % (Auto) Lymph # [place] # Lymph # (Auto) [place] # (Auto) Eos # (Auto) Seg Neutrophils % Seg Neuts % (Manual) Lymphocytes % (Manual) Seg Neutrophils # Seg Neutrophils # Man Lymphocytes # (Manual) Monocytes % (Manual) Eosinophils % (Manual) Monocytes # (Manual) Eosinophils # (Manual) D-Dimer Heparin Anti-Xa Level ABG pH POC ABG pCO2 POC ABG pO2 ABG pO2 ABG HCO3 ABG O2 Saturation ABG Base Excess ABG Hemoglobin ABG Oxyhemoglobin VBG pH ABG Sodium ABG Potassium ABG Glucose Oxyhemoglobin Sodium 136 L Potassium Chloride Carbon Dioxide BUN 84 H Creatinine 2.8 H Glucose 109 H POC Glucose 108 H 125 H Lactic Acid Calcium 8.1 L Ferritin AST Alkaline Phosphatase Magnesium 2.50 H Lactate Dehydrogenase Total Creatine Kinase CK-MB (CK-2) C-Reactive Protein Total Protein Albumin Troponin T HDL Cholesterol Arterial Blood Glucose Urine WBC (Auto) Urine Creatinine Urine Total Protein Phenytoin Coronavirus (PCR) Crossmatch 07/08/20 07/09/20 07/09/20 23:50 05:39 11:57 WBC RBC Hgb Hct MCHC RDW Lymph % (Auto) [place] % (Auto) Eos % (Auto) Lymph # [place] # Lymph # (Auto) [place] # (Auto) Eos # (Auto) Seg Neutrophils % Seg Neuts % (Manual) Lymphocytes % (Manual) Seg Neutrophils # Seg Neutrophils # Man Lymphocytes # (Manual) Monocytes % (Manual) Eosinophils % (Manual) Monocytes # (Manual) Eosinophils # (Manual) D-Dimer Heparin Anti-Xa Level ABG pH POC ABG pCO2 POC ABG pO2 ABG pO2 ABG HCO3 ABG O2 Saturation ABG Base Excess ABG Hemoglobin ABG Oxyhemoglobin VBG pH ABG Sodium ABG Potassium ABG Glucose Oxyhemoglobin Sodium Potassium Chloride Carbon Dioxide BUN Creatinine Glucose POC Glucose 141 H 121 H 123 H Lactic Acid Calcium Ferritin AST Alkaline Phosphatase Magnesium Lactate Dehydrogenase Total Creatine Kinase CK-MB (CK-2) C-Reactive Protein Total Protein Albumin Troponin T HDL Cholesterol Arterial Blood Glucose Urine WBC (Auto) Urine Creatinine Urine Total Protein Phenytoin Coronavirus (PCR) Crossmatch 07/09/20 07/10/20 07/10/20 17:56 00:29 05:50 WBC RBC Hgb Hct MCHC RDW Lymph % (Auto) [place] % (Auto) Eos % (Auto) Lymph # [place] # Lymph # (Auto) [place] # (Auto) Eos # (Auto) Seg Neutrophils % Seg Neuts % (Manual) Lymphocytes % (Manual) Seg Neutrophils # Seg Neutrophils # Man Lymphocytes # (Manual) Monocytes % (Manual) Eosinophils % (Manual) Monocytes # (Manual) Eosinophils # (Manual) D-Dimer Heparin Anti-Xa Level ABG pH POC ABG pCO2 POC ABG pO2 ABG pO2 ABG HCO3 ABG O2 Saturation ABG Base Excess ABG Hemoglobin ABG Oxyhemoglobin VBG pH ABG Sodium ABG Potassium ABG Glucose Oxyhemoglobin Sodium Potassium Chloride Carbon Dioxide BUN Creatinine Glucose POC Glucose 119 H 122 H 124 H Lactic Acid Calcium Ferritin AST Alkaline Phosphatase Magnesium Lactate Dehydrogenase Total Creatine Kinase CK-MB (CK-2) C-Reactive Protein Total Protein Albumin Troponin T HDL Cholesterol Arterial Blood Glucose Urine WBC (Auto) Urine Creatinine Urine Total Protein Phenytoin Coronavirus (PCR) Crossmatch 07/10/20 07/10/20 07/10/20 10:41 10:41 12:25 WBC RBC 3.11 L Hgb 9.2 L Hct 27.6 L MCHC RDW 16.6 H Lymph % (Auto) [place] % (Auto) Eos % (Auto) Lymph # [place] # Lymph # (Auto) [place] # (Auto) Eos # (Auto) Seg Neutrophils % Seg Neuts % (Manual) 78.0 H Lymphocytes % (Manual) 11.0 L Seg Neutrophils # Seg Neutrophils # Man Lymphocytes # (Manual) 1.0 L Monocytes % (Manual) Eosinophils % (Manual) Monocytes # (Manual) Eosinophils # (Manual) D-Dimer Heparin Anti-Xa Level ABG pH POC ABG pCO2 POC ABG pO2 ABG pO2 ABG HCO3 ABG O2 Saturation ABG Base Excess ABG Hemoglobin ABG Oxyhemoglobin VBG pH ABG Sodium ABG Potassium ABG Glucose Oxyhemoglobin Sodium Potassium Chloride Carbon Dioxide BUN 85 H Creatinine 2.5 H Glucose 133 H POC Glucose 131 H Lactic Acid Calcium Ferritin AST Alkaline Phosphatase 131 H Magnesium Lactate Dehydrogenase Total Creatine Kinase CK-MB (CK-2) C-Reactive Protein Total Protein 5.2 L Albumin 1.6 L Troponin T HDL Cholesterol Arterial Blood Glucose Urine WBC (Auto) Urine Creatinine Urine Total Protein Phenytoin Coronavirus (PCR) Crossmatch 07/10/20 07/11/20 07/11/20 18:10 00:28 05:57 WBC RBC Hgb Hct MCHC RDW Lymph % (Auto) [place] % (Auto) Eos % (Auto) Lymph # [place] # Lymph # (Auto) [place] # (Auto) Eos # (Auto) Seg Neutrophils % Seg Neuts % (Manual) Lymphocytes % (Manual) Seg Neutrophils # Seg Neutrophils # Man Lymphocytes # (Manual) Monocytes % (Manual) Eosinophils % (Manual) Monocytes # (Manual) Eosinophils # (Manual) D-Dimer Heparin Anti-Xa Level ABG pH POC ABG pCO2 POC ABG pO2 ABG pO2 ABG HCO3 ABG O2 Saturation ABG Base Excess ABG Hemoglobin ABG Oxyhemoglobin VBG pH ABG Sodium ABG Potassium ABG Glucose Oxyhemoglobin Sodium Potassium Chloride Carbon Dioxide BUN Creatinine Glucose POC Glucose 134 H 140 H 148 H Lactic Acid Calcium Ferritin AST Alkaline Phosphatase Magnesium Lactate Dehydrogenase Total Creatine Kinase CK-MB (CK-2) C-Reactive Protein Total Protein Albumin Troponin T HDL Cholesterol Arterial Blood Glucose Urine WBC (Auto) Urine Creatinine Urine Total Protein Phenytoin Coronavirus (PCR) Crossmatch 07/11/20 07/11/20 07/11/20 12:14 17:28 23:49 WBC RBC Hgb Hct MCHC RDW Lymph % (Auto) [place] % (Auto) Eos % (Auto) Lymph # [place] # Lymph # (Auto) [place] # (Auto) Eos # (Auto) Seg Neutrophils % Seg Neuts % (Manual) Lymphocytes % (Manual) Seg Neutrophils # Seg Neutrophils # Man Lymphocytes # (Manual) Monocytes % (Manual) Eosinophils % (Manual) Monocytes # (Manual) Eosinophils # (Manual) D-Dimer Heparin Anti-Xa Level ABG pH POC ABG pCO2 POC ABG pO2 ABG pO2 ABG HCO3 ABG O2 Saturation ABG Base Excess ABG Hemoglobin ABG Oxyhemoglobin VBG pH ABG Sodium ABG Potassium ABG Glucose Oxyhemoglobin Sodium Potassium Chloride Carbon Dioxide BUN Creatinine Glucose POC Glucose 147 H 175 H 114 H Lactic Acid Calcium Ferritin AST Alkaline Phosphatase Magnesium Lactate Dehydrogenase Total Creatine Kinase CK-MB (CK-2) C-Reactive Protein Total Protein Albumin Troponin T HDL Cholesterol Arterial Blood Glucose Urine WBC (Auto) Urine Creatinine Urine Total Protein Phenytoin Coronavirus (PCR) Crossmatch 07/12/20 07/12/20 07/12/20 05:14 05:14 05:44 WBC RBC 2.78 L Hgb 8.5 L Hct 25.3 L MCHC RDW 16.7 H Lymph % (Auto) [place] % (Auto) Eos % (Auto) Lymph # [place] # Lymph # (Auto) [place] # (Auto) Eos # (Auto) Seg Neutrophils % Seg Neuts % (Manual) 81.0 H Lymphocytes % (Manual) 6.0 L Seg Neutrophils # Seg Neutrophils # Man Lymphocytes # (Manual) 0.6 L Monocytes % (Manual) 8.0 H Eosinophils % (Manual) Monocytes # (Manual) Eosinophils # (Manual) D-Dimer Heparin Anti-Xa Level ABG pH POC ABG pCO2 POC ABG pO2 ABG pO2 ABG HCO3 ABG O2 Saturation ABG Base Excess ABG Hemoglobin ABG Oxyhemoglobin VBG pH ABG Sodium ABG Potassium ABG Glucose Oxyhemoglobin Sodium Potassium Chloride Carbon Dioxide BUN 79 H Creatinine 2.2 H Glucose 131 H POC Glucose 116 H Lactic Acid Calcium Ferritin AST Alkaline Phosphatase Magnesium Lactate Dehydrogenase Total Creatine Kinase CK-MB (CK-2) C-Reactive Protein Total Protein Albumin Troponin T HDL Cholesterol Arterial Blood Glucose Urine WBC (Auto) Urine Creatinine Urine Total Protein Phenytoin Coronavirus (PCR) Crossmatch 07/12/20 07/12/20 07/13/20 11:32 17:53 00:18 WBC RBC Hgb Hct MCHC RDW Lymph % (Auto) [place] % (Auto) Eos % (Auto) Lymph # [place] # Lymph # (Auto) [place] # (Auto) Eos # (Auto) Seg Neutrophils % Seg Neuts % (Manual) Lymphocytes % (Manual) Seg Neutrophils # Seg Neutrophils # Man Lymphocytes # (Manual) Monocytes % (Manual) Eosinophils % (Manual) Monocytes # (Manual) Eosinophils # (Manual) D-Dimer Heparin Anti-Xa Level ABG pH POC ABG pCO2 POC ABG pO2 ABG pO2 ABG HCO3 ABG O2 Saturation ABG Base Excess ABG Hemoglobin ABG Oxyhemoglobin VBG pH ABG Sodium ABG Potassium ABG Glucose Oxyhemoglobin Sodium Potassium Chloride Carbon Dioxide BUN Creatinine Glucose POC Glucose 132 H 155 H 162 H Lactic Acid Calcium Ferritin AST Alkaline Phosphatase Magnesium Lactate Dehydrogenase Total Creatine Kinase CK-MB (CK-2) C-Reactive Protein Total Protein Albumin Troponin T HDL Cholesterol Arterial Blood Glucose Urine WBC (Auto) Urine Creatinine Urine Total Protein Phenytoin Coronavirus (PCR) Crossmatch 07/13/20 07/13/20 07/13/20 04:53 04:53 06:14 WBC RBC 2.86 L Hgb 8.4 L Hct 25.7 L MCHC RDW 16.8 H Lymph % (Auto) [place] % (Auto) Eos % (Auto) Lymph # [place] # Lymph # (Auto) [place] # (Auto) Eos # (Auto) Seg Neutrophils % Seg Neuts % (Manual) 84.0 H Lymphocytes % (Manual) 7.0 L Seg Neutrophils # Seg Neutrophils # Man Lymphocytes # (Manual) 0.6 L Monocytes % (Manual) Eosinophils % (Manual) Monocytes # (Manual) Eosinophils # (Manual) D-Dimer Heparin Anti-Xa Level ABG pH POC ABG pCO2 POC ABG pO2 ABG pO2 ABG HCO3 ABG O2 Saturation ABG Base Excess ABG Hemoglobin ABG Oxyhemoglobin VBG pH ABG Sodium ABG Potassium ABG Glucose Oxyhemoglobin Sodium 136 L Potassium Chloride Carbon Dioxide BUN 78 H Creatinine 2.0 H Glucose 130 H POC Glucose 141 H Lactic Acid Calcium Ferritin AST Alkaline Phosphatase Magnesium Lactate Dehydrogenase Total Creatine Kinase CK-MB (CK-2) C-Reactive Protein Total Protein Albumin Troponin T HDL Cholesterol Arterial Blood Glucose Urine WBC (Auto) Urine Creatinine Urine Total Protein Phenytoin Coronavirus (PCR) Crossmatch 07/13/20 07/13/20 07/14/20 12:50 18:27 00:22 WBC RBC Hgb Hct MCHC RDW Lymph % (Auto) [place] % (Auto) Eos % (Auto) Lymph # [place] # Lymph # (Auto) [place] # (Auto) Eos # (Auto) Seg Neutrophils % Seg Neuts % (Manual) Lymphocytes % (Manual) Seg Neutrophils # Seg Neutrophils # Man Lymphocytes # (Manual) Monocytes % (Manual) Eosinophils % (Manual) Monocytes # (Manual) Eosinophils # (Manual) D-Dimer Heparin Anti-Xa Level ABG pH POC ABG pCO2 POC ABG pO2 ABG pO2 ABG HCO3 ABG O2 Saturation ABG Base Excess ABG Hemoglobin ABG Oxyhemoglobin VBG pH ABG Sodium ABG Potassium ABG Glucose Oxyhemoglobin Sodium Potassium Chloride Carbon Dioxide BUN Creatinine Glucose POC Glucose 146 H 149 H 157 H Lactic Acid Calcium Ferritin AST Alkaline Phosphatase Magnesium Lactate Dehydrogenase Total Creatine Kinase CK-MB (CK-2) C-Reactive Protein Total Protein Albumin Troponin T HDL Cholesterol Arterial Blood Glucose Urine WBC (Auto) Urine Creatinine Urine Total Protein Phenytoin Coronavirus (PCR) Crossmatch 07/14/20 07/14/20 07/14/20 05:43 08:04 12:12 WBC RBC Hgb Hct MCHC RDW Lymph % (Auto) [place] % (Auto) Eos % (Auto) Lymph # [place] # Lymph # (Auto) [place] # (Auto) Eos # (Auto) Seg Neutrophils % Seg Neuts % (Manual) Lymphocytes % (Manual) Seg Neutrophils # Seg Neutrophils # Man Lymphocytes # (Manual) Monocytes % (Manual) Eosinophils % (Manual) Monocytes # (Manual) Eosinophils # (Manual) D-Dimer Heparin Anti-Xa Level ABG pH POC ABG pCO2 POC ABG pO2 ABG pO2 ABG HCO3 ABG O2 Saturation ABG Base Excess ABG Hemoglobin ABG Oxyhemoglobin VBG pH ABG Sodium ABG Potassium ABG Glucose Oxyhemoglobin Sodium Potassium Chloride Carbon Dioxide BUN Creatinine Glucose POC Glucose 169 H 185 H Lactic Acid Calcium Ferritin AST Alkaline Phosphatase Magnesium Lactate Dehydrogenase Total Creatine Kinase CK-MB (CK-2) C-Reactive Protein Total Protein Albumin Troponin T HDL Cholesterol Arterial Blood Glucose Urine WBC (Auto) Urine Creatinine Urine Total Protein Phenytoin Coronavirus (PCR) Positive A Crossmatch 07/14/20 07/15/20 07/15/20 17:23 00:04 06:06 WBC RBC Hgb Hct MCHC RDW Lymph % (Auto) [place] % (Auto) Eos % (Auto) Lymph # [place] # Lymph # (Auto) [place] # (Auto) Eos # (Auto) Seg Neutrophils % Seg Neuts % (Manual) Lymphocytes % (Manual) Seg Neutrophils # Seg Neutrophils # Man Lymphocytes # (Manual) Monocytes % (Manual) Eosinophils % (Manual) Monocytes # (Manual) Eosinophils # (Manual) D-Dimer Heparin Anti-Xa Level ABG pH POC ABG pCO2 POC ABG pO2 ABG pO2 ABG HCO3 ABG O2 Saturation ABG Base Excess ABG Hemoglobin ABG Oxyhemoglobin VBG pH ABG Sodium ABG Potassium ABG Glucose Oxyhemoglobin Sodium Potassium Chloride Carbon Dioxide BUN Creatinine Glucose POC Glucose 138 H 121 H 140 H Lactic Acid Calcium Ferritin AST Alkaline Phosphatase Magnesium Lactate Dehydrogenase Total Creatine Kinase CK-MB (CK-2) C-Reactive Protein Total Protein Albumin Troponin T HDL Cholesterol Arterial Blood Glucose Urine WBC (Auto) Urine Creatinine Urine Total Protein Phenytoin Coronavirus (PCR) Crossmatch 07/15/20 07/15/20 07/15/20 12:00 17:53 23:53 WBC RBC Hgb Hct MCHC RDW Lymph % (Auto) [place] % (Auto) Eos % (Auto) Lymph # [place] # Lymph # (Auto) [place] # (Auto) Eos # (Auto) Seg Neutrophils % Seg Neuts % (Manual) Lymphocytes % (Manual) Seg Neutrophils # Seg Neutrophils # Man Lymphocytes # (Manual) Monocytes % (Manual) Eosinophils % (Manual) Monocytes # (Manual) Eosinophils # (Manual) D-Dimer Heparin Anti-Xa Level ABG pH POC ABG pCO2 POC ABG pO2 ABG pO2 ABG HCO3 ABG O2 Saturation ABG Base Excess ABG Hemoglobin ABG Oxyhemoglobin VBG pH ABG Sodium ABG Potassium ABG Glucose Oxyhemoglobin Sodium Potassium Chloride Carbon Dioxide BUN Creatinine Glucose POC Glucose 137 H 161 H 156 H Lactic Acid Calcium Ferritin AST Alkaline Phosphatase Magnesium Lactate Dehydrogenase Total Creatine Kinase CK-MB (CK-2) C-Reactive Protein Total Protein Albumin Troponin T HDL Cholesterol Arterial Blood Glucose Urine WBC (Auto) Urine Creatinine Urine Total Protein Phenytoin Coronavirus (PCR) Crossmatch 07/16/20 07/16/20 07/17/20 05:26 17:44 00:07 WBC RBC Hgb Hct MCHC RDW Lymph % (Auto) [place] % (Auto) Eos % (Auto) Lymph # [place] # Lymph # (Auto) [place] # (Auto) Eos # (Auto) Seg Neutrophils % Seg Neuts % (Manual) Lymphocytes % (Manual) Seg Neutrophils # Seg Neutrophils # Man Lymphocytes # (Manual) Monocytes % (Manual) Eosinophils % (Manual) Monocytes # (Manual) Eosinophils # (Manual) D-Dimer Heparin Anti-Xa Level ABG pH POC ABG pCO2 POC ABG pO2 ABG pO2 ABG HCO3 ABG O2 Saturation ABG Base Excess ABG Hemoglobin ABG Oxyhemoglobin VBG pH ABG Sodium ABG Potassium ABG Glucose Oxyhemoglobin Sodium Potassium Chloride Carbon Dioxide BUN Creatinine Glucose POC Glucose 152 H 126 H 189 H Lactic Acid Calcium Ferritin AST Alkaline Phosphatase Magnesium Lactate Dehydrogenase Total Creatine Kinase CK-MB (CK-2) C-Reactive Protein Total Protein Albumin Troponin T HDL Cholesterol Arterial Blood Glucose Urine WBC (Auto) Urine Creatinine Urine Total Protein Phenytoin Coronavirus (PCR) Crossmatch 07/17/20 07/17/20 07/17/20 12:06 18:20 23:25 WBC RBC Hgb Hct MCHC RDW Lymph % (Auto) [place] % (Auto) Eos % (Auto) Lymph # [place] # Lymph # (Auto) [place] # (Auto) Eos # (Auto) Seg Neutrophils % Seg Neuts % (Manual) Lymphocytes % (Manual) Seg Neutrophils # Seg Neutrophils # Man Lymphocytes # (Manual) Monocytes % (Manual) Eosinophils % (Manual) Monocytes # (Manual) Eosinophils # (Manual) D-Dimer Heparin Anti-Xa Level ABG pH POC ABG pCO2 POC ABG pO2 ABG pO2 ABG HCO3 ABG O2 Saturation ABG Base Excess ABG Hemoglobin ABG Oxyhemoglobin VBG pH ABG Sodium ABG Potassium ABG Glucose Oxyhemoglobin Sodium Potassium Chloride Carbon Dioxide BUN Creatinine Glucose POC Glucose 155 H 206 H 161 H Lactic Acid Calcium Ferritin AST Alkaline Phosphatase Magnesium Lactate Dehydrogenase Total Creatine Kinase CK-MB (CK-2) C-Reactive Protein Total Protein Albumin Troponin T HDL Cholesterol Arterial Blood Glucose Urine WBC (Auto) Urine Creatinine Urine Total Protein Phenytoin Coronavirus (PCR) Crossmatch 07/18/20 07/18/20 07/18/20 04:24 05:16 11:53 WBC RBC Hgb Hct MCHC RDW Lymph % (Auto) [place] % (Auto) Eos % (Auto) Lymph # [place] # Lymph # (Auto) [place] # (Auto) Eos # (Auto) Seg Neutrophils % Seg Neuts % (Manual) Lymphocytes % (Manual) Seg Neutrophils # Seg Neutrophils # Man Lymphocytes # (Manual) Monocytes % (Manual) Eosinophils % (Manual) Monocytes # (Manual) Eosinophils # (Manual) D-Dimer Heparin Anti-Xa Level ABG pH POC ABG pCO2 POC ABG pO2 ABG pO2 ABG HCO3 ABG O2 Saturation ABG Base Excess ABG Hemoglobin 8.8 L ABG Oxyhemoglobin VBG pH ABG Sodium 131.6 L ABG Potassium 4.9 H ABG Glucose 131 H Oxyhemoglobin Sodium Potassium Chloride Carbon Dioxide BUN Creatinine Glucose POC Glucose 140 H 176 H Lactic Acid Calcium Ferritin AST Alkaline Phosphatase Magnesium Lactate Dehydrogenase Total Creatine Kinase CK-MB (CK-2) C-Reactive Protein Total Protein Albumin Troponin T HDL Cholesterol Arterial Blood Glucose 131 H Urine WBC (Auto) Urine Creatinine Urine Total Protein Phenytoin Coronavirus (PCR) Crossmatch 07/18/20 07/18/20 07/19/20 18:11 23:51 01:05 WBC RBC 2.76 L Hgb 7.9 L Hct 24.5 L MCHC RDW 17.6 H Lymph % (Auto) 11.6 L [place] % (Auto) 13.1 H Eos % (Auto) Lymph # [place] # Lymph # (Auto) 1.0 L [place] # (Auto) 1.1 H Eos # (Auto) Seg Neutrophils % 70.9 H Seg Neuts % (Manual) Lymphocytes % (Manual) Seg Neutrophils # Seg Neutrophils # Man Lymphocytes # (Manual) Monocytes % (Manual) Eosinophils % (Manual) Monocytes # (Manual) Eosinophils # (Manual) D-Dimer Heparin Anti-Xa Level ABG pH POC ABG pCO2 POC ABG pO2 ABG pO2 ABG HCO3 ABG O2 Saturation ABG Base Excess ABG Hemoglobin ABG Oxyhemoglobin VBG pH ABG Sodium ABG Potassium ABG Glucose Oxyhemoglobin Sodium Potassium Chloride Carbon Dioxide BUN Creatinine Glucose POC Glucose 143 H 159 H Lactic Acid Calcium Ferritin AST Alkaline Phosphatase Magnesium Lactate Dehydrogenase Total Creatine Kinase CK-MB (CK-2) C-Reactive Protein Total Protein Albumin Troponin T HDL Cholesterol Arterial Blood Glucose Urine WBC (Auto) Urine Creatinine Urine Total Protein Phenytoin Coronavirus (PCR) Crossmatch 07/19/20 07/19/20 07/19/20 01:05 05:54 12:46 WBC RBC Hgb Hct MCHC RDW Lymph % (Auto) [place] % (Auto) Eos % (Auto) Lymph # [place] # Lymph # (Auto) [place] # (Auto) Eos # (Auto) Seg Neutrophils % Seg Neuts % (Manual) Lymphocytes % (Manual) Seg Neutrophils # Seg Neutrophils # Man Lymphocytes # (Manual) Monocytes % (Manual) Eosinophils % (Manual) Monocytes # (Manual) Eosinophils # (Manual) D-Dimer Heparin Anti-Xa Level ABG pH POC ABG pCO2 POC ABG pO2 ABG pO2 ABG HCO3 ABG O2 Saturation ABG Base Excess ABG Hemoglobin ABG Oxyhemoglobin VBG pH ABG Sodium ABG Potassium ABG Glucose Oxyhemoglobin Sodium Potassium Chloride Carbon Dioxide BUN 86 H Creatinine 1.7 H Glucose 149 H POC Glucose 176 H 127 H Lactic Acid Calcium Ferritin AST Alkaline Phosphatase Magnesium Lactate Dehydrogenase Total Creatine Kinase CK-MB (CK-2) C-Reactive Protein Total Protein Albumin Troponin T HDL Cholesterol Arterial Blood Glucose Urine WBC (Auto) Urine Creatinine Urine Total Protein Phenytoin Coronavirus (PCR) Crossmatch 07/19/20 07/20/20 07/20/20 17:48 00:34 05:28 WBC RBC Hgb Hct MCHC RDW Lymph % (Auto) [place] % (Auto) Eos % (Auto) Lymph # [place] # Lymph # (Auto) [place] # (Auto) Eos # (Auto) Seg Neutrophils % Seg Neuts % (Manual) Lymphocytes % (Manual) Seg Neutrophils # Seg Neutrophils # Man Lymphocytes # (Manual) Monocytes % (Manual) Eosinophils % (Manual) Monocytes # (Manual) Eosinophils # (Manual) D-Dimer Heparin Anti-Xa Level ABG pH POC ABG pCO2 POC ABG pO2 ABG pO2 ABG HCO3 ABG O2 Saturation ABG Base Excess ABG Hemoglobin ABG Oxyhemoglobin VBG pH ABG Sodium ABG Potassium ABG Glucose Oxyhemoglobin Sodium Potassium Chloride Carbon Dioxide BUN Creatinine Glucose POC Glucose 123 H 147 H 110 H Lactic Acid Calcium Ferritin AST Alkaline Phosphatase Magnesium Lactate Dehydrogenase Total Creatine Kinase CK-MB (CK-2) C-Reactive Protein Total Protein Albumin Troponin T HDL Cholesterol Arterial Blood Glucose Urine WBC (Auto) Urine Creatinine Urine Total Protein Phenytoin Coronavirus (PCR) Crossmatch 07/20/20 07/20/20 07/21/20 12:10 17:00 00:11 WBC RBC Hgb Hct MCHC RDW Lymph % (Auto) [place] % (Auto) Eos % (Auto) Lymph # [place] # Lymph # (Auto) [place] # (Auto) Eos # (Auto) Seg Neutrophils % Seg Neuts % (Manual) Lymphocytes % (Manual) Seg Neutrophils # Seg Neutrophils # Man Lymphocytes # (Manual) Monocytes % (Manual) Eosinophils % (Manual) Monocytes # (Manual) Eosinophils # (Manual) D-Dimer Heparin Anti-Xa Level ABG pH POC ABG pCO2 POC ABG pO2 ABG pO2 ABG HCO3 ABG O2 Saturation ABG Base Excess ABG Hemoglobin ABG Oxyhemoglobin VBG pH ABG Sodium ABG Potassium ABG Glucose Oxyhemoglobin Sodium Potassium Chloride Carbon Dioxide BUN Creatinine Glucose POC Glucose 149 H 173 H 128 H Lactic Acid Calcium Ferritin AST Alkaline Phosphatase Magnesium Lactate Dehydrogenase Total Creatine Kinase CK-MB (CK-2) C-Reactive Protein Total Protein Albumin Troponin T HDL Cholesterol Arterial Blood Glucose Urine WBC (Auto) Urine Creatinine Urine Total Protein Phenytoin Coronavirus (PCR) Crossmatch 07/21/20 07/21/20 07/21/20 05:30 12:21 18:17 WBC RBC Hgb Hct MCHC RDW Lymph % (Auto) [place] % (Auto) Eos % (Auto) Lymph # [place] # Lymph # (Auto) [place] # (Auto) Eos # (Auto) Seg Neutrophils % Seg Neuts % (Manual) Lymphocytes % (Manual) Seg Neutrophils # Seg Neutrophils # Man Lymphocytes # (Manual) Monocytes % (Manual) Eosinophils % (Manual) Monocytes # (Manual) Eosinophils # (Manual) D-Dimer Heparin Anti-Xa Level ABG pH POC ABG pCO2 POC ABG pO2 ABG pO2 ABG HCO3 ABG O2 Saturation ABG Base Excess ABG Hemoglobin ABG Oxyhemoglobin VBG pH ABG Sodium ABG Potassium ABG Glucose Oxyhemoglobin Sodium Potassium Chloride Carbon Dioxide BUN Creatinine Glucose POC Glucose 153 H 144 H 160 H Lactic Acid Calcium Ferritin AST Alkaline Phosphatase Magnesium Lactate Dehydrogenase Total Creatine Kinase CK-MB (CK-2) C-Reactive Protein Total Protein Albumin Troponin T HDL Cholesterol Arterial Blood Glucose Urine WBC (Auto) Urine Creatinine Urine Total Protein Phenytoin Coronavirus (PCR) Crossmatch 07/22/20 07/22/20 07/22/20 00:45 05:52 12:03 WBC RBC Hgb Hct MCHC RDW Lymph % (Auto) [place] % (Auto) Eos % (Auto) Lymph # [place] # Lymph # (Auto) [place] # (Auto) Eos # (Auto) Seg Neutrophils % Seg Neuts % (Manual) Lymphocytes % (Manual) Seg Neutrophils # Seg Neutrophils # Man Lymphocytes # (Manual) Monocytes % (Manual) Eosinophils % (Manual) Monocytes # (Manual) Eosinophils # (Manual) D-Dimer Heparin Anti-Xa Level ABG pH POC ABG pCO2 POC ABG pO2 ABG pO2 ABG HCO3 ABG O2 Saturation ABG Base Excess ABG Hemoglobin ABG Oxyhemoglobin VBG pH ABG Sodium ABG Potassium ABG Glucose Oxyhemoglobin Sodium Potassium Chloride Carbon Dioxide BUN Creatinine Glucose POC Glucose 128 H 126 H 157 H Lactic Acid Calcium Ferritin AST Alkaline Phosphatase Magnesium Lactate Dehydrogenase Total Creatine Kinase CK-MB (CK-2) C-Reactive Protein Total Protein Albumin Troponin T HDL Cholesterol Arterial Blood Glucose Urine WBC (Auto) Urine Creatinine Urine Total Protein Phenytoin Coronavirus (PCR) Crossmatch 07/22/20 07/22/20 07/23/20 18:23 23:20 06:06 WBC RBC Hgb Hct MCHC RDW Lymph % (Auto) [place] % (Auto) Eos % (Auto) Lymph # [place] # Lymph # (Auto) [place] # (Auto) Eos # (Auto) Seg Neutrophils % Seg Neuts % (Manual) Lymphocytes % (Manual) Seg Neutrophils # Seg Neutrophils # Man Lymphocytes # (Manual) Monocytes % (Manual) Eosinophils % (Manual) Monocytes # (Manual) Eosinophils # (Manual) D-Dimer Heparin Anti-Xa Level ABG pH POC ABG pCO2 POC ABG pO2 ABG pO2 ABG HCO3 ABG O2 Saturation ABG Base Excess ABG Hemoglobin ABG Oxyhemoglobin VBG pH ABG Sodium ABG Potassium ABG Glucose Oxyhemoglobin Sodium Potassium Chloride Carbon Dioxide BUN Creatinine Glucose POC Glucose 152 H 122 H 143 H Lactic Acid Calcium Ferritin AST Alkaline Phosphatase Magnesium Lactate Dehydrogenase Total Creatine Kinase CK-MB (CK-2) C-Reactive Protein Total Protein Albumin Troponin T HDL Cholesterol Arterial Blood Glucose Urine WBC (Auto) Urine Creatinine Urine Total Protein Phenytoin Coronavirus (PCR) Crossmatch 07/23/20 07/23/20 07/23/20 12:11 17:38 19:23 WBC RBC Hgb Hct MCHC RDW Lymph % (Auto) [place] % (Auto) Eos % (Auto) Lymph # [place] # Lymph # (Auto) [place] # (Auto) Eos # (Auto) Seg Neutrophils % Seg Neuts % (Manual) Lymphocytes % (Manual) Seg Neutrophils # Seg Neutrophils # Man Lymphocytes # (Manual) Monocytes % (Manual) Eosinophils % (Manual) Monocytes # (Manual) Eosinophils # (Manual) D-Dimer Heparin Anti-Xa Level ABG pH POC ABG pCO2 POC ABG pO2 ABG pO2 ABG HCO3 ABG O2 Saturation ABG Base Excess ABG Hemoglobin ABG Oxyhemoglobin VBG pH ABG Sodium ABG Potassium ABG Glucose Oxyhemoglobin Sodium 129 L D Potassium 5.8 H Chloride 95.6 L Carbon Dioxide BUN 98 H Creatinine 2.1 H Glucose 167 H POC Glucose 210 H 181 H Lactic Acid Calcium Ferritin AST Alkaline Phosphatase Magnesium Lactate Dehydrogenase Total Creatine Kinase CK-MB (CK-2) C-Reactive Protein Total Protein Albumin 2.2 L Troponin T HDL Cholesterol Arterial Blood Glucose Urine WBC (Auto) Urine Creatinine Urine Total Protein Phenytoin Coronavirus (PCR) Crossmatch 07/24/20 07/24/20 07/24/20 00:00 04:29 04:29 WBC RBC 2.53 L Hgb 7.5 L Hct 22.8 L MCHC RDW 16.8 H Lymph % (Auto) 9.4 L [place] % (Auto) 10.4 H Eos % (Auto) 5.9 H Lymph # [place] # Lymph # (Auto) 0.8 L [place] # (Auto) 0.9 H Eos # (Auto) 0.5 H Seg Neutrophils % 73.5 H Seg Neuts % (Manual) Lymphocytes % (Manual) Seg Neutrophils # Seg Neutrophils # Man Lymphocytes # (Manual) Monocytes % (Manual) Eosinophils % (Manual) Monocytes # (Manual) Eosinophils # (Manual) D-Dimer Heparin Anti-Xa Level ABG pH POC ABG pCO2 POC ABG pO2 ABG pO2 ABG HCO3 ABG O2 Saturation ABG Base Excess ABG Hemoglobin ABG Oxyhemoglobin VBG pH ABG Sodium ABG Potassium ABG Glucose Oxyhemoglobin Sodium Potassium Chloride Carbon Dioxide BUN Creatinine Glucose POC Glucose 201 H Lactic Acid Calcium Ferritin AST Alkaline Phosphatase Magnesium Lactate Dehydrogenase Total Creatine Kinase CK-MB (CK-2) C-Reactive Protein Total Protein Albumin Troponin T HDL Cholesterol Arterial Blood Glucose Urine WBC (Auto) Urine Creatinine Urine Total Protein Phenytoin 9.4 L Coronavirus (PCR) Crossmatch 07/24/20 07/24/20 07/24/20 04:29 05:11 12:14 WBC RBC Hgb Hct MCHC RDW Lymph % (Auto) [place] % (Auto) Eos % (Auto) Lymph # [place] # Lymph # (Auto) [place] # (Auto) Eos # (Auto) Seg Neutrophils % Seg Neuts % (Manual) Lymphocytes % (Manual) Seg Neutrophils # Seg Neutrophils # Man Lymphocytes # (Manual) Monocytes % (Manual) Eosinophils % (Manual) Monocytes # (Manual) Eosinophils # (Manual) D-Dimer Heparin Anti-Xa Level ABG pH POC ABG pCO2 POC ABG pO2 ABG pO2 ABG HCO3 ABG O2 Saturation ABG Base Excess ABG Hemoglobin ABG Oxyhemoglobin VBG pH ABG Sodium ABG Potassium ABG Glucose Oxyhemoglobin Sodium 134 L Potassium 5.5 H Chloride Carbon Dioxide BUN 97 H Creatinine 2.2 H Glucose 149 H POC Glucose 142 H 146 H Lactic Acid Calcium Ferritin AST Alkaline Phosphatase Magnesium 2.60 H Lactate Dehydrogenase Total Creatine Kinase CK-MB (CK-2) C-Reactive Protein Total Protein Albumin Troponin T HDL Cholesterol Arterial Blood Glucose Urine WBC (Auto) Urine Creatinine Urine Total Protein Phenytoin Coronavirus (PCR) Crossmatch 07/24/20 07/24/20 07/25/20 18:12 21:00 00:08 WBC RBC Hgb Hct MCHC RDW Lymph % (Auto) [place] % (Auto) Eos % (Auto) Lymph # [place] # Lymph # (Auto) [place] # (Auto) Eos # (Auto) Seg Neutrophils % Seg Neuts % (Manual) Lymphocytes % (Manual) Seg Neutrophils # Seg Neutrophils # Man Lymphocytes # (Manual) Monocytes % (Manual) Eosinophils % (Manual) Monocytes # (Manual) Eosinophils # (Manual) D-Dimer Heparin Anti-Xa Level ABG pH POC ABG pCO2 POC ABG pO2 ABG pO2 ABG HCO3 ABG O2 Saturation ABG Base Excess ABG Hemoglobin ABG Oxyhemoglobin VBG pH ABG Sodium ABG Potassium ABG Glucose Oxyhemoglobin Sodium Potassium Chloride Carbon Dioxide BUN Creatinine Glucose POC Glucose 182 H 170 H 129 H Lactic Acid Calcium Ferritin AST Alkaline Phosphatase Magnesium Lactate Dehydrogenase Total Creatine Kinase CK-MB (CK-2) C-Reactive Protein Total Protein Albumin Troponin T HDL Cholesterol Arterial Blood Glucose Urine WBC (Auto) Urine Creatinine Urine Total Protein Phenytoin Coronavirus (PCR) Crossmatch 07/25/20 07/25/20 07/25/20 04:24 04:24 12:19 WBC RBC 2.51 L Hgb 7.5 L Hct 22.3 L MCHC RDW 17.4 H Lymph % (Auto) [place] % (Auto) Eos % (Auto) Lymph # [place] # Lymph # (Auto) [place] # (Auto) Eos # (Auto) Seg Neutrophils % Seg Neuts % (Manual) Lymphocytes % (Manual) Seg Neutrophils # Seg Neutrophils # Man Lymphocytes # (Manual) Monocytes % (Manual) Eosinophils % (Manual) Monocytes # (Manual) Eosinophils # (Manual) D-Dimer Heparin Anti-Xa Level ABG pH POC ABG pCO2 POC ABG pO2 ABG pO2 ABG HCO3 ABG O2 Saturation ABG Base Excess ABG Hemoglobin ABG Oxyhemoglobin VBG pH ABG Sodium ABG Potassium ABG Glucose Oxyhemoglobin Sodium 132 L Potassium Chloride 95.1 L Carbon Dioxide 21 L BUN 95 H Creatinine 2.5 H Glucose 108 H POC Glucose 122 H Lactic Acid Calcium Ferritin AST Alkaline Phosphatase Magnesium Lactate Dehydrogenase Total Creatine Kinase CK-MB (CK-2) C-Reactive Protein Total Protein Albumin Troponin T HDL Cholesterol Arterial Blood Glucose Urine WBC (Auto) Urine Creatinine Urine Total Protein Phenytoin Coronavirus (PCR) Crossmatch 07/25/20 07/25/20 07/26/20 18:11 23:24 04:22 WBC RBC Hgb Hct MCHC RDW Lymph % (Auto) [place] % (Auto) Eos % (Auto) Lymph # [place] # Lymph # (Auto) [place] # (Auto) Eos # (Auto) Seg Neutrophils % Seg Neuts % (Manual) Lymphocytes % (Manual) Seg Neutrophils # Seg Neutrophils # Man Lymphocytes # (Manual) Monocytes % (Manual) Eosinophils % (Manual) Monocytes # (Manual) Eosinophils # (Manual) D-Dimer Heparin Anti-Xa Level ABG pH POC ABG pCO2 POC ABG pO2 ABG pO2 ABG HCO3 ABG O2 Saturation ABG Base Excess ABG Hemoglobin ABG Oxyhemoglobin VBG pH ABG Sodium ABG Potassium ABG Glucose Oxyhemoglobin Sodium 132 L Potassium Chloride 96.2 L Carbon Dioxide 21 L BUN 99 H Creatinine 2.5 H Glucose 132 H POC Glucose 137 H 117 H Lactic Acid Calcium 8.2 L Ferritin AST Alkaline Phosphatase Magnesium Lactate Dehydrogenase Total Creatine Kinase CK-MB (CK-2) C-Reactive Protein Total Protein Albumin Troponin T HDL Cholesterol Arterial Blood Glucose Urine WBC (Auto) Urine Creatinine Urine Total Protein Phenytoin Coronavirus (PCR) Crossmatch 07/26/20 07/26/20 05:58 12:21 WBC RBC Hgb Hct MCHC RDW Lymph % (Auto) [place] % (Auto) Eos % (Auto) Lymph # [place] # Lymph # (Auto) [place] # (Auto) Eos # (Auto) Seg Neutrophils % Seg Neuts % (Manual) Lymphocytes % (Manual) Seg Neutrophils # Seg Neutrophils # Man Lymphocytes # (Manual) Monocytes % (Manual) Eosinophils % (Manual) Monocytes # (Manual) Eosinophils # (Manual) D-Dimer Heparin Anti-Xa Level ABG pH POC ABG pCO2 POC ABG pO2 ABG pO2 ABG HCO3 ABG O2 Saturation ABG Base Excess ABG Hemoglobin ABG Oxyhemoglobin VBG pH ABG Sodium ABG Potassium ABG Glucose Oxyhemoglobin Sodium Potassium Chloride Carbon Dioxide BUN Creatinine Glucose POC Glucose 110 H 142 H Lactic Acid Calcium Ferritin AST Alkaline Phosphatase Magnesium Lactate Dehydrogenase Total Creatine Kinase CK-MB (CK-2) C-Reactive Protein Total Protein Albumin Troponin T HDL Cholesterol Arterial Blood Glucose Urine WBC (Auto) Urine Creatinine Urine Total Protein Phenytoin Coronavirus (PCR) Crossmatch Chest x-ray: other (none today) Allied health notes reviewed: nursing
[2020-07-26] MEDS ORDERED: cloNIDine 0.1 MG TAB PO SCH (14:00)
[2020-07-26] MEDS ORDERED: cloNIDine 0.2 MG TAB PO SCH (14:03)
[2020-07-26] MEDS: cloNIDine 0.1 MG TAB PO SCH ×2 (15:30→22:19)
[2020-07-26] MEDS: INSULIN GLARGINE 100 UNITS/ML SUB-Q SCH (22:18)
[2020-07-27] MEDS: SODIUM CHLORIDE 0.9% IV SCH ×5 (06:06→21:53)
[2020-07-27] MEDS: PHENYTOIN IV SCH ×3 (06:06→21:53)
[2020-07-27] MEDS: HEPARIN 5,000 UNIT/1 ML VIAL SUB-Q SCH ×3 (06:07→21:55)
[2020-07-27 06:22] LABS: Hematocrit 22.2 % (30.3-42.9); Hemoglobin 7.3 gm/dl (10.1-14.3); Mean Corpuscular HGB Conc 33 % (30-34); Mean Corpuscular Volume 89 fl (79-97); Platelet Count 400 K/mm3 (140-440); Red Blood Count 2.49 M/mm3 (3.65-5.03); Red Cell Distribution Width 17.2 % (13.2-15.2)
[2020-07-27] MEDS: INSULIN LISPRO 100 UNIT/ML VIAL 3 mL SUB-Q SCH ×4 (06:24→17:22)
[2020-07-27 06:33] LABS: Basophils # (Auto) 0.1 K/mm3 (0.0-0.1); Basophils % (Auto) 0.8 % (0.0-1.8); Eosinophils # (Auto) 0.3 K/mm3 (0.0-0.4); Eosinophils % (Auto) 4.2 % (0.0-4.3); Lymphocytes # (Auto) 0.8 K/mm3 (1.2-5.4); Monocytes # (Auto) 0.9 K/mm3 (0.0-0.8); Monocytes % (Auto) 11.7 % (0.0-7.3)
[2020-07-27 06:36] LABS: Calcium 8.1 mg/dL (8.4-10.2)
[2020-07-27] MEDS: cloNIDine 0.1 MG TAB PO SCH ×3 (07:34→23:16)
[2020-07-27] MEDS: hydrALAZINE 100 MG TAB PO SCH ×3 (08:35→20:19)
[2020-07-27] MEDS: GLYCOPYRROLATE 2 MG TAB PO SCH ×3 (08:36→20:19)
--- NOTE | 2020-07-27 08:49 | Progress Note ---
Assessment and Plan Cardiopulmoanry arrest 06/26/2020 with ROSC Acute hypoxemic respiratory failure , extubated now re-intubated Anemia s/p PRBC Severe COVID infection Multifocal pneumonia Morbid obesity Acute toxic metabolic encephalopathy AVANI secondary to COVID/vasomotor nephropathy Bilateral pulmonary edema. Bilateral pleural effusions. History of congestive heart failure. History of pulmonary hypertension. History of hypertension. Diabetes. Obesity hypoventilation syndrome. Oropharyngeal dysphagia Non convulsive status -IV Albumin with lasix , 1 dose -Discussed with Renal- patient is 3rd spacing with worsening renal function, not responding to diuretic therapy. Plan is to trial a Bumetanide infusion and if no response whe will have discussions with the family as to next steps -Continue AEDs per Neurology -CXR, ABG as clinically indicated -Continue to trend temperature curve and WCC -Continue daily SBTs as tolerated, her mental status precludes liberation from MVS -Continue to avoid nephrotoxins, closely monitor renal function, dose all medications for renal function -COVID positive, trach /PEG on hold -Supportive transfusions as indicated - VAP bundle addressed -Aspiration precautions, HOB >40 -lung protective strategies-ARDS. net - continue bronchodilators with pulmonary hygiene per RT - wean per pulmonary driven protocols otherwise - continue to avoid benzodiazepines, reduce the possibility of delirium - prn analgesia per CPOT score - Continue to wean supplemental oxygen for target O2 sats > 92% -Continue to hold sedation, if needed intermittent dosing - conservative fluid management measures as tolerated by hemodynamics and renal function - Bronchodilators with pulmonary hygiene per RT - Accuchecks with glycemic control per SSI (While critically ill target blood g lucose of 140-180 mg/dL; avoid hypoglycemia) - Maintenance of sleep-wake cycle, avoid delirium - Aspiration precautions, HOB >40 - Stress ulcer prophylaxis -Famotidine - Mobility protocol, off loading and skin assessment for pressure ulcer prevention - Supportive transfusions as indicated to keep HgB >7g/dL COVID SPECIFIC INTERVENTIONS -Airborne, contact isolation for COVID per facility protocols - s/p Remdesivir -IV steroids-Dexamethasone -Trend d-dimer,and other inflammatory markers per facility protocol -Convalescent plasma therapy per facility protocol -Continue all supportive care Discussed with the ICU team-RT,RN, Clincal pharmacist and case management Life threatening condition- Cardiopulmonary arrest with ROSC, Sepsis ;COVID 19 acute hypoxemic respiratory failure on MVS Mortality/Morbidity- High Complexity of medical decision making- High CONDITION: CRITICAL PROGNOSIS: GUARDED-POOR CODE STATUS: FULL CODE The high probability of a clinically significant, sudden or life-threatening deterioration of the [respiratory & neurology, renal ] system(s) required my full and direct attention, intervention and personal management. The aggregate critical care time was [32] minutes without overlap. Time includes spent on; [x] Data Review and interpretation [x] Patient assessment and monitoring of vital signs [x] Documentation [x] Medication orders and management Subjective Date of service: 07/27/20 Principal diagnosis: Ac hypoxemic resp failure; COVID-19; pneumonia; CHF; Pulm HTN; OHS; DM II Interval history: Patient is seen today for: Ac hypoxemic resp failure s/p Cardiopulmonary arrest with ROSC; Coronavirus-19 infection; pneumonia; Pulmonary edema; Bilateral pleural effusions; CHF; Morbid obesity; pulmonary hypertension; OHS; DM II Seen and examined at bedside; 24hour events reviewed; nursing and respiratory care staff consulted; Vitals, labs,medications, chart reviewed. Remains on MVS, no fevers, Tolerating PS trials Mental status changes persist, but grimaces to pain Tolerating tube feedings, Helm catheter placed over the weekend, anuric. Not responding to diuretics Objective Vital Signs - 12hr 07/26/20 07/26/20 07/26/20 21:00 21:28 22:01 Temperature Pulse Rate 61 60 59 L Pulse Rate [ From Monitor] Respiratory 20 19 Rate Blood Pressure 166/76 166/76 171/61 O2 Sat by Pulse 97 97 97 Oximetry 07/26/20 07/26/20 07/26/20 22:13 23:01 23:35 Temperature Pulse Rate 61 59 L 58 L Pulse Rate [ From Monitor] Respiratory 20 18 Rate Blood Pressure 171/61 191/53 191/53 O2 Sat by Pulse 96 97 Oximetry 07/27/20 07/27/20 07/27/20 00:00 01:00 02:00 Temperature 97.6 F Pulse Rate 59 L 59 L 59 L Pulse Rate [ 57 L From Monitor] Respiratory 20 20 21 Rate Blood Pressure 157/83 167/71 164/74 O2 Sat by Pulse 97 97 97 Oximetry 07/27/20 07/27/20 07/27/20 03:00 04:00 05:00 Temperature 97.6 F Pulse Rate 58 L 59 L 57 L Pulse Rate [ 59 L From Monitor] Respiratory 17 21 20 Rate Blood Pressure 162/83 167/74 162/57 O2 Sat by Pulse 97 97 96 Oximetry 07/27/20 07/27/20 07/27/20 05:26 06:00 07:00 Temperature Pulse Rate 59 L 58 L 59 L Pulse Rate [ From Monitor] Respiratory 19 20 Rate Blood Pressure 162/57 163/59 162/64 O2 Sat by Pulse 95 95 96 Oximetry 07/27/20 07/27/20 07/27/20 08:00 08:34 08:37 Temperature 97.6 F Pulse Rate 59 L 59 L 60 Pulse Rate [ 59 L From Monitor] Respiratory 22 20 Rate Blood Pressure 162/64 162/64 162/64 O2 Sat by Pulse 95 96 95 Oximetry Constitutional: no acute distress, other (elderly looking female with mildly increased resp effort at rest) Eyes: non-icteric ENT: oropharynx dry, other (ETT 7.5 cm at 23-24 cm at the lip) Neck: supple, no lymphadenopathy, no JVD, other (large neck circumference) Effort: mildly labored Ascultation: Bilateral: clear, diminished breath sounds, rales, rhonchi (scant) Percussion: Bilateral: not dull Cardiovascular: regular rate and rhythm, other (S1,S2) Gastrointestinal: normoactive bowel sounds, soft, non-tender, non-distended, other (Helm catheter) Integumentary: normal Extremities: no cyanosis, pink and warm, pulses normal, no ischemia or petechiae, anasarca Neurologic: pupils equal and round, unable to assess, other (lethargic to obtunded) Psychiatric: other (unable to assess re: AMS) CBC and BMP: 07/27/20 05:36 07/27/20 05:36 ABG, PT/INR, D-dimer: ABG ABG pH 7.382 (7.320-7.450) 07/18/20 04:24 POC ABG pCO2 44.1 mmHg (32.0-48.0) 07/18/20 04:24 ABG pCO2 47.0 mm Hg 07/05/20 13:05 POC ABG pO2 86.8 mmHg (83-108) 07/18/20 04:24 ABG pO2 78.3 mm Hg (80.0-90.0) L 07/05/20 13:05 POC ABG HCO3 25.6 07/18/20 04:24 ABG O2 Saturation 96.1 % (95.0-99.0) 07/05/20 13:05 PT/INR, D-dimer PT 14.2 Sec. (12.2-14.9) 05/29/20 15:10 INR 1.08 (0.87-1.13) 05/29/20 15:10 D-Dimer 2310.15 ng/mlDDU (0-234) H 06/29/20 14:45 Abnormal lab findings: Abnormal Labs 05/28/20 05/28/20 05/28/20 13:29 13:47 13:47 WBC RBC Hgb Hct MCHC RDW 15.3 H Lymph % (Auto) Evans % (Auto) Eos % (Auto) Lymph # Evans # Lymph # (Auto) Evans # (Auto) Eos # (Auto) Seg Neutrophils % Seg Neuts % (Manual) Lymphocytes % (Manual) Seg Neutrophils # Seg Neutrophils # Man Lymphocytes # (Manual) Monocytes % (Manual) Eosinophils % (Manual) Monocytes # (Manual) Eosinophils # (Manual) D-Dimer Heparin Anti-Xa Level ABG pH POC ABG pCO2 POC ABG pO2 ABG pO2 ABG HCO3 ABG O2 Saturation ABG Base Excess ABG Hemoglobin ABG Oxyhemoglobin VBG pH ABG Sodium ABG Potassium ABG Glucose Oxyhemoglobin Sodium Potassium 6.6 H* Chloride 109.2 H Carbon Dioxide 17 L BUN 29 H Creatinine 1.3 H Glucose 265 H POC Glucose 248 H Lactic Acid Calcium 8.1 L Ferritin AST 63 H Alkaline Phosphatase Magnesium Lactate Dehydrogenase Total Creatine Kinase 301 H CK-MB (CK-2) 4.3 H C-Reactive Protein Total Protein 5.4 L Albumin 2.6 L Troponin T HDL Cholesterol Arterial Blood Glucose Urine WBC (Auto) Urine Creatinine Urine Total Protein Phenytoin Coronavirus (PCR) Crossmatch 05/28/20 05/28/20 05/28/20 13:47 13:47 14:46 WBC RBC Hgb Hct MCHC RDW Lymph % (Auto) Evans % (Auto) Eos % (Auto) Lymph # Evans # Lymph # (Auto) Evans # (Auto) Eos # (Auto) Seg Neutrophils % Seg Neuts % (Manual) Lymphocytes % (Manual) Seg Neutrophils # Seg Neutrophils # Man Lymphocytes # (Manual) Monocytes % (Manual) Eosinophils % (Manual) Monocytes # (Manual) Eosinophils # (Manual) D-Dimer Heparin Anti-Xa Level ABG pH POC ABG pCO2 POC ABG pO2 ABG pO2 ABG HCO3 ABG O2 Saturation ABG Base Excess ABG Hemoglobin ABG Oxyhemoglobin VBG pH 7.152 L* ABG Sodium ABG Potassium ABG Glucose Oxyhemoglobin Sodium Potassium 7.2 H* Chloride Carbon Dioxide BUN Creatinine Glucose POC Glucose Lactic Acid 3.40 H* Calcium Ferritin AST Alkaline Phosphatase Magnesium Lactate Dehydrogenase Total Creatine Kinase CK-MB (CK-2) C-Reactive Protein Total Protein Albumin Troponin T HDL Cholesterol Arterial Blood Glucose Urine WBC (Auto) Urine Creatinine Urine Total Protein Phenytoin Coronavirus (PCR) Crossmatch 05/28/20 05/28/20 05/28/20 15:33 15:33 15:51 WBC RBC Hgb Hct MCHC RDW Lymph % (Auto) Evans % (Auto) Eos % (Auto) Lymph # Evans # Lymph # (Auto) Evans # (Auto) Eos # (Auto) Seg Neutrophils % Seg Neuts % (Manual) Lymphocytes % (Manual) Seg Neutrophils # Seg Neutrophils # Man Lymphocytes # (Manual) Monocytes % (Manual) Eosinophils % (Manual) Monocytes # (Manual) Eosinophils # (Manual) D-Dimer 8780.43 H Heparin Anti-Xa Level ABG pH 7.284 L POC ABG pCO2 POC ABG pO2 ABG pO2 273.0 H ABG HCO3 ABG O2 Saturation 99.4 H ABG Base Excess -6.1 L ABG Hemoglobin 17.2 H ABG Oxyhemoglobin VBG pH ABG Sodium ABG Potassium ABG Glucose Oxyhemoglobin Sodium Potassium Chloride Carbon Dioxide BUN Creatinine Glucose 152 H POC Glucose Lactic Acid Calcium Ferritin AST Alkaline Phosphatase Magnesium Lactate Dehydrogenase 365 H Total Creatine Kinase CK-MB (CK-2) C-Reactive Protein Total Protein Albumin Troponin T HDL Cholesterol Arterial Blood Glucose Urine WBC (Auto) Urine Creatinine Urine Total Protein Phenytoin Coronavirus (PCR) Crossmatch 05/28/20 05/28/20 05/28/20 16:30 20:41 23:20 WBC RBC Hgb Hct MCHC RDW Lymph % (Auto) Evans % (Auto) Eos % (Auto) Lymph # Evans # Lymph # (Auto) Evans # (Auto) Eos # (Auto) Seg Neutrophils % Seg Neuts % (Manual) Lymphocytes % (Manual) Seg Neutrophils # Seg Neutrophils # Man Lymphocytes # (Manual) Monocytes % (Manual) Eosinophils % (Manual) Monocytes # (Manual) Eosinophils # (Manual) D-Dimer Heparin Anti-Xa Level ABG pH POC ABG pCO2 POC ABG pO2 ABG pO2 ABG HCO3 ABG O2 Saturation ABG Base Excess ABG Hemoglobin ABG Oxyhemoglobin VBG pH ABG Sodium ABG Potassium ABG Glucose Oxyhemoglobin Sodium Potassium Chloride Carbon Dioxide BUN Creatinine Glucose POC Glucose 225 H 224 H Lactic Acid Calcium Ferritin AST Alkaline Phosphatase Magnesium Lactate Dehydrogenase Total Creatine Kinase CK-MB (CK-2) C-Reactive Protein Total Protein Albumin Troponin T HDL Cholesterol Arterial Blood Glucose Urine WBC (Auto) 17.0 H Urine Creatinine Urine Total Protein Phenytoin Coronavirus (PCR) Crossmatch 05/28/20 05/29/20 05/29/20 Unknown 04:35 04:43 WBC RBC 3.48 L Hgb 9.8 L Hct 29.4 L MCHC RDW 16.0 H Lymph % (Auto) 7.4 L Evans % (Auto) Eos % (Auto) Lymph # 0.7 L Evans # Lymph # (Auto) Evans # (Auto) Eos # (Auto) Seg Neutrophils % 89.1 H Seg Neuts % (Manual) Lymphocytes % (Manual) Seg Neutrophils # 8.1 H Seg Neutrophils # Man Lymphocytes # (Manual) Monocytes % (Manual) Eosinophils % (Manual) Monocytes # (Manual) Eosinophils # (Manual) D-Dimer Heparin Anti-Xa Level ABG pH POC ABG pCO2 POC ABG pO2 ABG pO2 ABG HCO3 19.3 L ABG O2 Saturation ABG Base Excess -4.5 L ABG Hemoglobin 9.7 L ABG Oxyhemoglobin VBG pH ABG Sodium ABG Potassium ABG Glucose Oxyhemoglobin Sodium Potassium Chloride Carbon Dioxide BUN Creatinine Glucose POC Glucose Lactic Acid Calcium Ferritin AST Alkaline Phosphatase Magnesium Lactate Dehydrogenase Total Creatine Kinase CK-MB (CK-2) C-Reactive Protein Total Protein Albumin Troponin T HDL Cholesterol Arterial Blood Glucose Urine WBC (Auto) Urine Creatinine Urine Total Protein Phenytoin Coronavirus (PCR) Positive A Crossmatch 05/29/20 05/29/20 05/29/20 04:43 15:10 17:17 WBC RBC Hgb 9.3 L Hct 28.7 L MCHC RDW Lymph % (Auto) Evans % (Auto) Eos % (Auto) Lymph # Evans # Lymph # (Auto) Evans # (Auto) Eos # (Auto) Seg Neutrophils % Seg Neuts % (Manual) Lymphocytes % (Manual) Seg Neutrophils # Seg Neutrophils # Man Lymphocytes # (Manual) Monocytes % (Manual) Eosinophils % (Manual) Monocytes # (Manual) Eosinophils # (Manual) D-Dimer Heparin Anti-Xa Level ABG pH POC ABG pCO2 POC ABG pO2 ABG pO2 ABG HCO3 ABG O2 Saturation ABG Base Excess ABG Hemoglobin ABG Oxyhemoglobin VBG pH ABG Sodium ABG Potassium ABG Glucose Oxyhemoglobin Sodium Potassium Chloride 110.2 H Carbon Dioxide 18 L BUN 32 H Creatinine 1.4 H Glucose 180 H POC Glucose 147 H Lactic Acid Calcium Ferritin AST Alkaline Phosphatase Magnesium Lactate Dehydrogenase Total Creatine Kinase CK-MB (CK-2) C-Reactive Protein Total Protein Albumin Troponin T HDL Cholesterol Arterial Blood Glucose Urine WBC (Auto) Urine Creatinine Urine Total Protein Phenytoin Coronavirus (PCR) Crossmatch 05/30/20 05/30/20 05/30/20 00:08 00:12 04:15 WBC RBC Hgb Hct MCHC RDW Lymph % (Auto) Evans % (Auto) Eos % (Auto) Lymph # Evans # Lymph # (Auto) Evans # (Auto) Eos # (Auto) Seg Neutrophils % Seg Neuts % (Manual) Lymphocytes % (Manual) Seg Neutrophils # Seg Neutrophils # Man Lymphocytes # (Manual) Monocytes % (Manual) Eosinophils % (Manual) Monocytes # (Manual) Eosinophils # (Manual) D-Dimer Heparin Anti-Xa Level 0.71 H ABG pH 7.460 H POC ABG pCO2 POC ABG pO2 ABG pO2 106.0 H ABG HCO3 18.9 L ABG O2 Saturation ABG Base Excess -4.4 L ABG Hemoglobin 6.8 L ABG Oxyhemoglobin VBG pH ABG Sodium ABG Potassium ABG Glucose Oxyhemoglobin Sodium Potassium Chloride Carbon Dioxide BUN Creatinine Glucose POC Glucose 195 H Lactic Acid Calcium Ferritin AST Alkaline Phosphatase Magnesium Lactate Dehydrogenase Total Creatine Kinase CK-MB (CK-2) C-Reactive Protein Total Protein Albumin Troponin T HDL Cholesterol Arterial Blood Glucose Urine WBC (Auto) Urine Creatinine Urine Total Protein Phenytoin Coronavirus (PCR) Crossmatch 05/30/20 05/30/20 05/30/20 06:07 08:37 12:33 WBC RBC Hgb Hct MCHC RDW Lymph % (Auto) Evans % (Auto) Eos % (Auto) Lymph # Evans # Lymph # (Auto) Evans # (Auto) Eos # (Auto) Seg Neutrophils % Seg Neuts % (Manual) Lymphocytes % (Manual) Seg Neutrophils # Seg Neutrophils # Man Lymphocytes # (Manual) Monocytes % (Manual) Eosinophils % (Manual) Monocytes # (Manual) Eosinophils # (Manual) D-Dimer Heparin Anti-Xa Level 0.85 H ABG pH POC ABG pCO2 POC ABG pO2 ABG pO2 ABG HCO3 ABG O2 Saturation ABG Base Excess ABG Hemoglobin ABG Oxyhemoglobin VBG pH ABG Sodium ABG Potassium ABG Glucose Oxyhemoglobin Sodium Potassium Chloride Carbon Dioxide BUN Creatinine Glucose POC Glucose 182 H 187 H Lactic Acid Calcium Ferritin AST Alkaline Phosphatase Magnesium Lactate Dehydrogenase Total Creatine Kinase CK-MB (CK-2) C-Reactive Protein Total Protein Albumin Troponin T HDL Cholesterol Arterial Blood Glucose Urine WBC (Auto) Urine Creatinine Urine Total Protein Phenytoin Coronavirus (PCR) Crossmatch 05/30/20 05/30/20 05/30/20 15:58 17:57 23:36 WBC RBC Hgb Hct MCHC RDW Lymph % (Auto) Evans % (Auto) Eos % (Auto) Lymph # Evans # Lymph # (Auto) Evans # (Auto) Eos # (Auto) Seg Neutrophils % Seg Neuts % (Manual) Lymphocytes % (Manual) Seg Neutrophils # Seg Neutrophils # Man Lymphocytes # (Manual) Monocytes % (Manual) Eosinophils % (Manual) Monocytes # (Manual) Eosinophils # (Manual) D-Dimer Heparin Anti-Xa Level 1.03 H ABG pH POC ABG pCO2 POC ABG pO2 ABG pO2 ABG HCO3 ABG O2 Saturation ABG Base Excess ABG Hemoglobin ABG Oxyhemoglobin VBG pH ABG Sodium ABG Potassium ABG Glucose Oxyhemoglobin Sodium Potassium Chloride Carbon Dioxide BUN Creatinine Glucose POC Glucose 208 H 185 H Lactic Acid Calcium Ferritin AST Alkaline Phosphatase Magnesium Lactate Dehydrogenase Total Creatine Kinase CK-MB (CK-2) C-Reactive Protein Total Protein Albumin Troponin T HDL Cholesterol Arterial Blood Glucose Urine WBC (Auto) Urine Creatinine Urine Total Protein Phenytoin Coronavirus (PCR) Crossmatch 05/31/20 05/31/20 05/31/20 02:16 03:55 06:16 WBC RBC Hgb 9.2 L Hct 27.5 L MCHC RDW Lymph % (Auto) Evans % (Auto) Eos % (Auto) Lymph # Evans # Lymph # (Auto) Evans # (Auto) Eos # (Auto) Seg Neutrophils % Seg Neuts % (Manual) Lymphocytes % (Manual) Seg Neutrophils # Seg Neutrophils # Man Lymphocytes # (Manual) Monocytes % (Manual) Eosinophils % (Manual) Monocytes # (Manual) Eosinophils # (Manual) D-Dimer Heparin Anti-Xa Level ABG pH POC ABG pCO2 POC ABG pO2 ABG pO2 94.7 H ABG HCO3 18.6 L ABG O2 Saturation ABG Base Excess -5.5 L ABG Hemoglobin 7.9 L ABG Oxyhemoglobin VBG pH ABG Sodium ABG Potassium ABG Glucose Oxyhemoglobin Sodium Potassium Chloride Carbon Dioxide BUN Creatinine Glucose POC Glucose 160 H Lactic Acid Calcium Ferritin AST Alkaline Phosphatase Magnesium Lactate Dehydrogenase Total Creatine Kinase CK-MB (CK-2) C-Reactive Protein Total Protein Albumin Troponin T HDL Cholesterol Arterial Blood Glucose Urine WBC (Auto) Urine Creatinine Urine Total Protein Phenytoin Coronavirus (PCR) Crossmatch 05/31/20 05/31/20 05/31/20 12:20 13:03 18:13 WBC RBC Hgb Hct MCHC RDW Lymph % (Auto) Evans % (Auto) Eos % (Auto) Lymph # Evans # Lymph # (Auto) Evans # (Auto) Eos # (Auto) Seg Neutrophils % Seg Neuts % (Manual) Lymphocytes % (Manual) Seg Neutrophils # Seg Neutrophils # Man Lymphocytes # (Manual) Monocytes % (Manual) Eosinophils % (Manual) Monocytes # (Manual) Eosinophils # (Manual) D-Dimer Heparin Anti-Xa Level ABG pH POC ABG pCO2 POC ABG pO2 ABG pO2 ABG HCO3 ABG O2 Saturation ABG Base Excess ABG Hemoglobin ABG Oxyhemoglobin VBG pH ABG Sodium ABG Potassium ABG Glucose Oxyhemoglobin Sodium Potassium Chloride Carbon Dioxide 18 L BUN 48 H Creatinine 1.6 H Glucose 115 H POC Glucose 128 H 159 H Lactic Acid Calcium 8.3 L Ferritin AST Alkaline Phosphatase Magnesium Lactate Dehydrogenase Total Creatine Kinase CK-MB (CK-2) C-Reactive Protein Total Protein 5.4 L Albumin 2.4 L Troponin T HDL Cholesterol Arterial Blood Glucose Urine WBC (Auto) Urine Creatinine Urine Total Protein Phenytoin Coronavirus (PCR) Crossmatch 05/31/20 06/01/20 06/01/20 23:51 04:00 05:48 WBC RBC Hgb Hct MCHC RDW Lymph % (Auto) Evans % (Auto) Eos % (Auto) Lymph # Evans # Lymph # (Auto) Evans # (Auto) Eos # (Auto) Seg Neutrophils % Seg Neuts % (Manual) Lymphocytes % (Manual) Seg Neutrophils # Seg Neutrophils # Man Lymphocytes # (Manual) Monocytes % (Manual) Eosinophils % (Manual) Monocytes # (Manual) Eosinophils # (Manual) D-Dimer Heparin Anti-Xa Level ABG pH POC ABG pCO2 POC ABG pO2 ABG pO2 109.8 H ABG HCO3 18.8 L ABG O2 Saturation ABG Base Excess -5.9 L ABG Hemoglobin 7.8 L ABG Oxyhemoglobin VBG pH ABG Sodium ABG Potassium ABG Glucose Oxyhemoglobin Sodium Potassium Chloride Carbon Dioxide BUN Creatinine Glucose POC Glucose 171 H 133 H Lactic Acid Calcium Ferritin AST Alkaline Phosphatase Magnesium Lactate Dehydrogenase Total Creatine Kinase CK-MB (CK-2) C-Reactive Protein Total Protein Albumin Troponin T HDL Cholesterol Arterial Blood Glucose Urine WBC (Auto) Urine Creatinine Urine Total Protein Phenytoin Coronavirus (PCR) Crossmatch 06/01/20 06/01/20 06/02/20 12:28 17:29 00:08 WBC RBC Hgb Hct MCHC RDW Lymph % (Auto) Evans % (Auto) Eos % (Auto) Lymph # Evans # Lymph # (Auto) Evans # (Auto) Eos # (Auto) Seg Neutrophils % Seg Neuts % (Manual) Lymphocytes % (Manual) Seg Neutrophils # Seg Neutrophils # Man Lymphocytes # (Manual) Monocytes % (Manual) Eosinophils % (Manual) Monocytes # (Manual) Eosinophils # (Manual) D-Dimer Heparin Anti-Xa Level ABG pH POC ABG pCO2 POC ABG pO2 ABG pO2 ABG HCO3 ABG O2 Saturation ABG Base Excess ABG Hemoglobin ABG Oxyhemoglobin VBG pH ABG Sodium ABG Potassium ABG Glucose Oxyhemoglobin Sodium Potassium Chloride Carbon Dioxide BUN Creatinine Glucose POC Glucose 199 H 209 H 162 H Lactic Acid Calcium Ferritin AST Alkaline Phosphatase Magnesium Lactate Dehydrogenase Total Creatine Kinase CK-MB (CK-2) C-Reactive Protein Total Protein Albumin Troponin T HDL Cholesterol Arterial Blood Glucose Urine WBC (Auto) Urine Creatinine Urine Total Protein Phenytoin Coronavirus (PCR) Crossmatch 06/02/20 06/02/20 06/02/20 04:20 04:20 04:44 WBC RBC Hgb 10.0 L Hct MCHC RDW Lymph % (Auto) Evans % (Auto) Eos % (Auto) Lymph # Evans # Lymph # (Auto) Evans # (Auto) Eos # (Auto) Seg Neutrophils % Seg Neuts % (Manual) Lymphocytes % (Manual) Seg Neutrophils # Seg Neutrophils # Man Lymphocytes # (Manual) Monocytes % (Manual) Eosinophils % (Manual) Monocytes # (Manual) Eosinophils # (Manual) D-Dimer Heparin Anti-Xa Level 0.10 L ABG pH POC ABG pCO2 POC ABG pO2 ABG pO2 150.6 H ABG HCO3 ABG O2 Saturation ABG Base Excess -4.1 L ABG Hemoglobin 11.8 L ABG Oxyhemoglobin VBG pH ABG Sodium ABG Potassium ABG Glucose Oxyhemoglobin Sodium Potassium Chloride Carbon Dioxide BUN Creatinine Glucose POC Glucose Lactic Acid Calcium Ferritin AST Alkaline Phosphatase Magnesium Lactate Dehydrogenase Total Creatine Kinase CK-MB (CK-2) C-Reactive Protein Total Protein Albumin Troponin T HDL Cholesterol Arterial Blood Glucose Urine WBC (Auto) Urine Creatinine Urine Total Protein Phenytoin Coronavirus (PCR) Crossmatch 06/02/20 06/02/20 06/02/20 05:53 12:04 13:49 WBC RBC Hgb Hct MCHC RDW Lymph % (Auto) Evans % (Auto) Eos % (Auto) Lymph # Evans # Lymph # (Auto) Evans # (Auto) Eos # (Auto) Seg Neutrophils % Seg Neuts % (Manual) Lymphocytes % (Manual) Seg Neutrophils # Seg Neutrophils # Man Lymphocytes # (Manual) Monocytes % (Manual) Eosinophils % (Manual) Monocytes # (Manual) Eosinophils # (Manual) D-Dimer Heparin Anti-Xa Level 0.28 L ABG pH POC ABG pCO2 POC ABG pO2 ABG pO2 ABG HCO3 ABG O2 Saturation ABG Base Excess ABG Hemoglobin ABG Oxyhemoglobin VBG pH ABG Sodium ABG Potassium ABG Glucose Oxyhemoglobin Sodium Potassium Chloride Carbon Dioxide BUN Creatinine Glucose POC Glucose 149 H 220 H Lactic Acid Calcium Ferritin AST Alkaline Phosphatase Magnesium Lactate Dehydrogenase Total Creatine Kinase CK-MB (CK-2) C-Reactive Protein Total Protein Albumin Troponin T HDL Cholesterol Arterial Blood Glucose Urine WBC (Auto) Urine Creatinine Urine Total Protein Phenytoin Coronavirus (PCR) Crossmatch 06/02/20 06/02/20 06/03/20 13:49 18:31 00:42 WBC RBC Hgb Hct MCHC RDW Lymph % (Auto) Evans % (Auto) Eos % (Auto) Lymph # Evans # Lymph # (Auto) Evans # (Auto) Eos # (Auto) Seg Neutrophils % Seg Neuts % (Manual) Lymphocytes % (Manual) Seg Neutrophils # Seg Neutrophils # Man Lymphocytes # (Manual) Monocytes % (Manual) Eosinophils % (Manual) Monocytes # (Manual) Eosinophils # (Manual) D-Dimer 769.68 H Heparin Anti-Xa Level ABG pH POC ABG pCO2 POC ABG pO2 ABG pO2 ABG HCO3 ABG O2 Saturation ABG Base Excess ABG Hemoglobin ABG Oxyhemoglobin VBG pH ABG Sodium ABG Potassium ABG Glucose Oxyhemoglobin Sodium Potassium Chloride Carbon Dioxide BUN Creatinine Glucose POC Glucose 225 H 212 H Lactic Acid Calcium Ferritin AST Alkaline Phosphatase Magnesium Lactate Dehydrogenase Total Creatine Kinase CK-MB (CK-2) C-Reactive Protein Total Protein Albumin Troponin T HDL Cholesterol Arterial Blood Glucose Urine WBC (Auto) Urine Creatinine Urine Total Protein Phenytoin Coronavirus (PCR) Crossmatch 06/03/20 06/03/20 06/03/20 05:16 05:16 05:25 WBC 11.4 H RBC Hgb Hct MCHC RDW 16.4 H Lymph % (Auto) Evans % (Auto) Eos % (Auto) Lymph # Evans # Lymph # (Auto) Evans # (Auto) Eos # (Auto) Seg Neutrophils % Seg Neuts % (Manual) Lymphocytes % (Manual) Seg Neutrophils # Seg Neutrophils # Man Lymphocytes # (Manual) Monocytes % (Manual) Eosinophils % (Manual) Monocytes # (Manual) Eosinophils # (Manual) D-Dimer Heparin Anti-Xa Level ABG pH POC ABG pCO2 POC ABG pO2 ABG pO2 160.9 H ABG HCO3 19.4 L ABG O2 Saturation ABG Base Excess -4.9 L ABG Hemoglobin 7.0 L ABG Oxyhemoglobin VBG pH ABG Sodium ABG Potassium ABG Glucose Oxyhemoglobin Sodium Potassium Chloride Carbon Dioxide 18 L BUN 65 H Creatinine 2.0 H Glucose 175 H POC Glucose Lactic Acid Calcium 8.0 L Ferritin AST Alkaline Phosphatase Magnesium Lactate Dehydrogenase Total Creatine Kinase CK-MB (CK-2) C-Reactive Protein Total Protein 5.5 L Albumin 2.2 L Troponin T HDL Cholesterol Arterial Blood Glucose Urine WBC (Auto) Urine Creatinine Urine Total Protein Phenytoin Coronavirus (PCR) Crossmatch 06/03/20 06/03/20 06/03/20 06:07 11:58 18:24 WBC RBC Hgb Hct MCHC RDW Lymph % (Auto) Evans % (Auto) Eos % (Auto) Lymph # Evans # Lymph # (Auto) Evans # (Auto) Eos # (Auto) Seg Neutrophils % Seg Neuts % (Manual) Lymphocytes % (Manual) Seg Neutrophils # Seg Neutrophils # Man Lymphocytes # (Manual) Monocytes % (Manual) Eosinophils % (Manual) Monocytes # (Manual) Eosinophils # (Manual) D-Dimer Heparin Anti-Xa Level ABG pH POC ABG pCO2 POC ABG pO2 ABG pO2 ABG HCO3 ABG O2 Saturation ABG Base Excess ABG Hemoglobin ABG Oxyhemoglobin VBG pH ABG Sodium ABG Potassium ABG Glucose Oxyhemoglobin Sodium Potassium Chloride Carbon Dioxide BUN Creatinine Glucose POC Glucose 177 H 163 H 211 H Lactic Acid Calcium Ferritin AST Alkaline Phosphatase Magnesium Lactate Dehydrogenase Total Creatine Kinase CK-MB (CK-2) C-Reactive Protein Total Protein Albumin Troponin T HDL Cholesterol Arterial Blood Glucose Urine WBC (Auto) Urine Creatinine Urine Total Protein Phenytoin Coronavirus (PCR) Crossmatch 06/03/20 06/03/20 06/04/20 21:50 Unknown 00:26 WBC RBC Hgb Hct MCHC RDW Lymph % (Auto) Evans % (Auto) Eos % (Auto) Lymph # Evans # Lymph # (Auto) Evans # (Auto) Eos # (Auto) Seg Neutrophils % Seg Neuts % (Manual) Lymphocytes % (Manual) Seg Neutrophils # Seg Neutrophils # Man Lymphocytes # (Manual) Monocytes % (Manual) Eosinophils % (Manual) Monocytes # (Manual) Eosinophils # (Manual) D-Dimer Heparin Anti-Xa Level ABG pH POC ABG pCO2 POC ABG pO2 ABG pO2 ABG HCO3 ABG O2 Saturation ABG Base Excess ABG Hemoglobin ABG Oxyhemoglobin VBG pH ABG Sodium ABG Potassium ABG Glucose Oxyhemoglobin Sodium 135 L Potassium Chloride Carbon Dioxide 18 L BUN Creatinine Glucose POC Glucose 241 H Lactic Acid Calcium Ferritin AST Alkaline Phosphatase Magnesium Lactate Dehydrogenase Total Creatine Kinase CK-MB (CK-2) C-Reactive Protein Total Protein Albumin Troponin T HDL Cholesterol Arterial Blood Glucose Urine WBC (Auto) 11.0 H Urine Creatinine Urine Total Protein Phenytoin Coronavirus (PCR) Crossmatch 08/27/20 08/27/20 08/27/20 03:35 04:19 04:19 WBC RBC 3.15 L Hgb 8.9 L Hct 26.8 L D MCHC RDW 15.9 H Lymph % (Auto) 6.0 L Evans % (Auto) Eos % (Auto) Lymph # 0.6 L Evans # Lymph # (Auto) Evans # (Auto) Eos # (Auto) Seg Neutrophils % 86.6 H Seg Neuts % (Manual) Lymphocytes % (Manual) Seg Neutrophils # 9.1 H Seg Neutrophils # Man Lymphocytes # (Manual) Monocytes % (Manual) Eosinophils % (Manual) Monocytes # (Manual) Eosinophils # (Manual) D-Dimer Heparin Anti-Xa Level ABG pH 7.331 L POC ABG pCO2 POC ABG pO2 ABG pO2 ABG HCO3 ABG O2 Saturation ABG Base Excess -4.7 L ABG Hemoglobin 11.0 L ABG Oxyhemoglobin VBG pH ABG Sodium ABG Potassium ABG Glucose Oxyhemoglobin 93.9 L Sodium 136 L Potassium Chloride Carbon Dioxide 20 L BUN 73 H Creatinine 2.0 H Glucose 192 H POC Glucose Lactic Acid Calcium 8.0 L Ferritin AST Alkaline Phosphatase Magnesium Lactate Dehydrogenase 271 H Total Creatine Kinase CK-MB (CK-2) C-Reactive Protein 2.20 H Total Protein 5.0 L Albumin 2.0 L Troponin T HDL Cholesterol Arterial Blood Glucose Urine WBC (Auto) Urine Creatinine Urine Total Protein Phenytoin Coronavirus (PCR) Crossmatch 06/04/20 06/04/20 06/04/20 04:19 05:51 11:48 WBC RBC Hgb Hct MCHC RDW Lymph % (Auto) Evans % (Auto) Eos % (Auto) Lymph # Evans # Lymph # (Auto) Evans # (Auto) Eos # (Auto) Seg Neutrophils % Seg Neuts % (Manual) Lymphocytes % (Manual) Seg Neutrophils # Seg Neutrophils # Man Lymphocytes # (Manual) Monocytes % (Manual) Eosinophils % (Manual) Monocytes # (Manual) Eosinophils # (Manual) D-Dimer 414.52 H Heparin Anti-Xa Level ABG pH POC ABG pCO2 POC ABG pO2 ABG pO2 ABG HCO3 ABG O2 Saturation ABG Base Excess ABG Hemoglobin ABG Oxyhemoglobin VBG pH ABG Sodium ABG Potassium ABG Glucose Oxyhemoglobin Sodium Potassium Chloride Carbon Dioxide BUN Creatinine Glucose POC Glucose 179 H 213 H Lactic Acid Calcium Ferritin AST Alkaline Phosphatase Magnesium Lactate Dehydrogenase Total Creatine Kinase CK-MB (CK-2) C-Reactive Protein Total Protein Albumin Troponin T HDL Cholesterol Arterial Blood Glucose Urine WBC (Auto) Urine Creatinine Urine Total Protein Phenytoin Coronavirus (PCR) Crossmatch 06/04/20 06/05/20 06/05/20 18:25 00:16 05:00 WBC RBC Hgb Hct MCHC RDW Lymph % (Auto) Evans % (Auto) Eos % (Auto) Lymph # Evans # Lymph # (Auto) Evans # (Auto) Eos # (Auto) Seg Neutrophils % Seg Neuts % (Manual) Lymphocytes % (Manual) Seg Neutrophils # Seg Neutrophils # Man Lymphocytes # (Manual) Monocytes % (Manual) Eosinophils % (Manual) Monocytes # (Manual) Eosinophils # (Manual) D-Dimer Heparin Anti-Xa Level ABG pH 7.286 L POC ABG pCO2 POC ABG pO2 ABG pO2 96.2 H ABG HCO3 ABG O2 Saturation ABG Base Excess -6.3 L ABG Hemoglobin 8.8 L ABG Oxyhemoglobin VBG pH ABG Sodium ABG Potassium ABG Glucose Oxyhemoglobin 94.8 L Sodium Potassium Chloride Carbon Dioxide BUN Creatinine Glucose POC Glucose 238 H 183 H Lactic Acid Calcium Ferritin AST Alkaline Phosphatase Magnesium Lactate Dehydrogenase Total Creatine Kinase CK-MB (CK-2) C-Reactive Protein Total Protein Albumin Troponin T HDL Cholesterol Arterial Blood Glucose Urine WBC (Auto) Urine Creatinine Urine Total Protein Phenytoin Coronavirus (PCR) Crossmatch 06/05/20 06/05/20 06/05/20 05:39 07:25 07:25 WBC RBC 2.97 L Hgb 8.7 L Hct 25.7 L MCHC RDW 16.0 H Lymph % (Auto) 8.8 L Evans % (Auto) 13.3 H Eos % (Auto) Lymph # 0.8 L Evans # 1.3 H Lymph # (Auto) Evans # (Auto) Eos # (Auto) Seg Neutrophils % 77.3 H Seg Neuts % (Manual) Lymphocytes % (Manual) Seg Neutrophils # Seg Neutrophils # Man Lymphocytes # (Manual) Monocytes % (Manual) Eosinophils % (Manual) Monocytes # (Manual) Eosinophils # (Manual) D-Dimer Heparin Anti-Xa Level ABG pH POC ABG pCO2 POC ABG pO2 ABG pO2 ABG HCO3 ABG O2 Saturation ABG Base Excess ABG Hemoglobin ABG Oxyhemoglobin VBG pH ABG Sodium ABG Potassium ABG Glucose Oxyhemoglobin Sodium 133 L Potassium Chloride Carbon Dioxide 17 L BUN 89 H Creatinine 2.8 H Glucose 176 H POC Glucose 149 H Lactic Acid Calcium 7.7 L Ferritin AST Alkaline Phosphatase Magnesium Lactate Dehydrogenase Total Creatine Kinase CK-MB (CK-2) C-Reactive Protein Total Protein 4.2 L Albumin 1.9 L Troponin T HDL Cholesterol Arterial Blood Glucose Urine WBC (Auto) Urine Creatinine Urine Total Protein Phenytoin Coronavirus (PCR) Crossmatch 06/05/20 06/05/20 06/05/20 07:25 12:05 15:41 WBC RBC Hgb Hct MCHC RDW Lymph % (Auto) Evans % (Auto) Eos % (Auto) Lymph # Evans # Lymph # (Auto) Evans # (Auto) Eos # (Auto) Seg Neutrophils % Seg Neuts % (Manual) Lymphocytes % (Manual) Seg Neutrophils # Seg Neutrophils # Man Lymphocytes # (Manual) Monocytes % (Manual) Eosinophils % (Manual) Monocytes # (Manual) Eosinophils # (Manual) D-Dimer Heparin Anti-Xa Level 0.76 H 0.81 H ABG pH POC ABG pCO2 POC ABG pO2 ABG pO2 ABG HCO3 ABG O2 Saturation ABG Base Excess ABG Hemoglobin ABG Oxyhemoglobin VBG pH ABG Sodium ABG Potassium ABG Glucose Oxyhemoglobin Sodium Potassium Chloride Carbon Dioxide BUN Creatinine Glucose POC Glucose 198 H Lactic Acid Calcium Ferritin AST Alkaline Phosphatase Magnesium Lactate Dehydrogenase Total Creatine Kinase CK-MB (CK-2) C-Reactive Protein Total Protein Albumin Troponin T HDL Cholesterol Arterial Blood Glucose Urine WBC (Auto) Urine Creatinine Urine Total Protein Phenytoin Coronavirus (PCR) Crossmatch 06/05/20 06/05/20 06/06/20 18:08 23:25 04:00 WBC RBC Hgb Hct MCHC RDW Lymph % (Auto) Evans % (Auto) Eos % (Auto) Lymph # Evans # Lymph # (Auto) Evans # (Auto) Eos # (Auto) Seg Neutrophils % Seg Neuts % (Manual) Lymphocytes % (Manual) Seg Neutrophils # Seg Neutrophils # Man Lymphocytes # (Manual) Monocytes % (Manual) Eosinophils % (Manual) Monocytes # (Manual) Eosinophils # (Manual) D-Dimer Heparin Anti-Xa Level ABG pH POC ABG pCO2 POC ABG pO2 ABG pO2 ABG HCO3 ABG O2 Saturation ABG Base Excess ABG Hemoglobin ABG Oxyhemoglobin VBG pH ABG Sodium ABG Potassium ABG Glucose Oxyhemoglobin Sodium Potassium Chloride Carbon Dioxide BUN Creatinine Glucose POC Glucose 223 H 169 H Lactic Acid Calcium Ferritin AST Alkaline Phosphatase Magnesium Lactate Dehydrogenase Total Creatine Kinase CK-MB (CK-2) C-Reactive Protein Total Protein Albumin Troponin T HDL Cholesterol Arterial Blood Glucose Urine WBC (Auto) 15.0 H Urine Creatinine Urine Total Protein Phenytoin Coronavirus (PCR) Crossmatch 06/06/20 06/06/20 06/06/20 04:00 05:33 05:38 WBC RBC 2.97 L Hgb 8.7 L Hct 26.8 L MCHC RDW 16.8 H Lymph % (Auto) Evans % (Auto) Eos % (Auto) Lymph # Evans # Lymph # (Auto) Evans # (Auto) Eos # (Auto) Seg Neutrophils % Seg Neuts % (Manual) Lymphocytes % (Manual) Seg Neutrophils # Seg Neutrophils # Man Lymphocytes # (Manual) Monocytes % (Manual) Eosinophils % (Manual) Monocytes # (Manual) Eosinophils # (Manual) D-Dimer Heparin Anti-Xa Level ABG pH POC ABG pCO2 POC ABG pO2 ABG pO2 ABG HCO3 ABG O2 Saturation ABG Base Excess ABG Hemoglobin ABG Oxyhemoglobin VBG pH ABG Sodium ABG Potassium ABG Glucose Oxyhemoglobin Sodium Potassium Chloride Carbon Dioxide BUN Creatinine Glucose POC Glucose 186 H Lactic Acid Calcium Ferritin AST Alkaline Phosphatase Magnesium Lactate Dehydrogenase Total Creatine Kinase CK-MB (CK-2) C-Reactive Protein Total Protein Albumin Troponin T HDL Cholesterol Arterial Blood Glucose Urine WBC (Auto) Urine Creatinine 82.2 H Urine Total Protein 196 H Phenytoin Coronavirus (PCR) Crossmatch 06/06/20 06/06/20 06/06/20 05:38 12:25 17:03 WBC RBC Hgb Hct MCHC RDW Lymph % (Auto) Evans % (Auto) Eos % (Auto) Lymph # Evans # Lymph # (Auto) Evans # (Auto) Eos # (Auto) Seg Neutrophils % Seg Neuts % (Manual) Lymphocytes % (Manual) Seg Neutrophils # Seg Neutrophils # Man Lymphocytes # (Manual) Monocytes % (Manual) Eosinophils % (Manual) Monocytes # (Manual) Eosinophils # (Manual) D-Dimer Heparin Anti-Xa Level ABG pH POC ABG pCO2 POC ABG pO2 ABG pO2 ABG HCO3 ABG O2 Saturation ABG Base Excess ABG Hemoglobin ABG Oxyhemoglobin VBG pH ABG Sodium ABG Potassium ABG Glucose Oxyhemoglobin Sodium 134 L Potassium 5.2 H Chloride Carbon Dioxide 18 L BUN 97 H Creatinine 2.5 H Glucose 193 H POC Glucose 239 H 252 H Lactic Acid Calcium 7.5 L Ferritin AST Alkaline Phosphatase Magnesium Lactate Dehydrogenase Total Creatine Kinase CK-MB (CK-2) C-Reactive Protein Total Protein 4.1 L Albumin 1.9 L Troponin T HDL Cholesterol Arterial Blood Glucose Urine WBC (Auto) Urine Creatinine Urine Total Protein Phenytoin Coronavirus (PCR) Crossmatch 06/07/20 06/07/20 06/07/20 00:16 01:49 04:00 WBC RBC 2.91 L Hgb 8.4 L Hct 25.0 L MCHC RDW 16.1 H Lymph % (Auto) 5.7 L Evans % (Auto) 10.5 H Eos % (Auto) Lymph # 0.6 L Evans # 1.1 H Lymph # (Auto) Evans # (Auto) Eos # (Auto) Seg Neutrophils % 83.6 H Seg Neuts % (Manual) Lymphocytes % (Manual) Seg Neutrophils # 9.1 H Seg Neutrophils # Man Lymphocytes # (Manual) Monocytes % (Manual) Eosinophils % (Manual) Monocytes # (Manual) Eosinophils # (Manual) D-Dimer Heparin Anti-Xa Level 0.26 L ABG pH POC ABG pCO2 POC ABG pO2 ABG pO2 ABG HCO3 ABG O2 Saturation ABG Base Excess ABG Hemoglobin ABG Oxyhemoglobin VBG pH ABG Sodium ABG Potassium ABG Glucose Oxyhemoglobin Sodium Potassium Chloride Carbon Dioxide BUN Creatinine Glucose POC Glucose 173 H Lactic Acid Calcium Ferritin AST Alkaline Phosphatase Magnesium Lactate Dehydrogenase Total Creatine Kinase CK-MB (CK-2) C-Reactive Protein Total Protein Albumin Troponin T HDL Cholesterol Arterial Blood Glucose Urine WBC (Auto) Urine Creatinine Urine Total Protein Phenytoin Coronavirus (PCR) Crossmatch 06/07/20 06/07/20 06/07/20 04:00 04:54 05:51 WBC RBC Hgb Hct MCHC RDW Lymph % (Auto) Evans % (Auto) Eos % (Auto) Lymph # Evans # Lymph # (Auto) Evans # (Auto) Eos # (Auto) Seg Neutrophils % Seg Neuts % (Manual) Lymphocytes % (Manual) Seg Neutrophils # Seg Neutrophils # Man Lymphocytes # (Manual) Monocytes % (Manual) Eosinophils % (Manual) Monocytes # (Manual) Eosinophils # (Manual) D-Dimer Heparin Anti-Xa Level ABG pH 7.317 L POC ABG pCO2 POC ABG pO2 ABG pO2 71.4 L ABG HCO3 ABG O2 Saturation 94.3 L ABG Base Excess -4.8 L ABG Hemoglobin 7.1 L ABG Oxyhemoglobin VBG pH ABG Sodium ABG Potassium ABG Glucose Oxyhemoglobin 92.2 L Sodium 133 L Potassium Chloride Carbon Dioxide 18 L BUN 100 H Creatinine 2.5 H Glucose 158 H POC Glucose 168 H Lactic Acid Calcium 7.6 L Ferritin AST Alkaline Phosphatase Magnesium Lactate Dehydrogenase Total Creatine Kinase CK-MB (CK-2) C-Reactive Protein Total Protein 4.7 L Albumin 2.0 L Troponin T HDL Cholesterol Arterial Blood Glucose Urine WBC (Auto) Urine Creatinine Urine Total Protein Phenytoin Coronavirus (PCR) Crossmatch 06/07/20 06/07/20 06/07/20 12:03 17:17 20:10 WBC RBC Hgb Hct MCHC RDW Lymph % (Auto) Evans % (Auto) Eos % (Auto) Lymph # Evans # Lymph # (Auto) Evans # (Auto) Eos # (Auto) Seg Neutrophils % Seg Neuts % (Manual) Lymphocytes % (Manual) Seg Neutrophils # Seg Neutrophils # Man Lymphocytes # (Manual) Monocytes % (Manual) Eosinophils % (Manual) Monocytes # (Manual) Eosinophils # (Manual) D-Dimer Heparin Anti-Xa Level 0.17 L ABG pH POC ABG pCO2 POC ABG pO2 ABG pO2 ABG HCO3 ABG O2 Saturation ABG Base Excess ABG Hemoglobin ABG Oxyhemoglobin VBG pH ABG Sodium ABG Potassium ABG Glucose Oxyhemoglobin Sodium Potassium Chloride Carbon Dioxide BUN Creatinine Glucose POC Glucose 276 H 281 H Lactic Acid Calcium Ferritin AST Alkaline Phosphatase Magnesium Lactate Dehydrogenase Total Creatine Kinase CK-MB (CK-2) C-Reactive Protein Total Protein Albumin Troponin T HDL Cholesterol Arterial Blood Glucose Urine WBC (Auto) Urine Creatinine Urine Total Protein Phenytoin Coronavirus (PCR) Crossmatch 06/08/20 06/08/20 06/08/20 00:02 04:47 04:47 WBC 16.4 H RBC 3.07 L Hgb 8.6 L Hct 26.5 L MCHC RDW 16.3 H Lymph % (Auto) Evans % (Auto) Eos % (Auto) Lymph # Evans # Lymph # (Auto) Evans # (Auto) Eos # (Auto) Seg Neutrophils % Seg Neuts % (Manual) 90.0 H Lymphocytes % (Manual) 3.0 L Seg Neutrophils # Seg Neutrophils # Man 14.8 H Lymphocytes # (Manual) 0.5 L Monocytes % (Manual) Eosinophils % (Manual) Monocytes # (Manual) 1.1 H Eosinophils # (Manual) D-Dimer Heparin Anti-Xa Level ABG pH POC ABG pCO2 POC ABG pO2 ABG pO2 ABG HCO3 ABG O2 Saturation ABG Base Excess ABG Hemoglobin ABG Oxyhemoglobin VBG pH ABG Sodium ABG Potassium ABG Glucose Oxyhemoglobin Sodium 129 L Potassium Chloride 95.6 L Carbon Dioxide 17 L BUN 106 H Creatinine 2.5 H Glucose 213 H POC Glucose 242 H Lactic Acid Calcium 7.6 L Ferritin AST Alkaline Phosphatase Magnesium Lactate Dehydrogenase Total Creatine Kinase CK-MB (CK-2) C-Reactive Protein Total Protein 5.0 L Albumin 2.1 L Troponin T HDL Cholesterol Arterial Blood Glucose Urine WBC (Auto) Urine Creatinine Urine Total Protein Phenytoin Coronavirus (PCR) Crossmatch 06/08/20 06/08/20 06/08/20 05:40 11:55 17:54 WBC RBC Hgb Hct MCHC RDW Lymph % (Auto) Evans % (Auto) Eos % (Auto) Lymph # Evans # Lymph # (Auto) Evans # (Auto) Eos # (Auto) Seg Neutrophils % Seg Neuts % (Manual) Lymphocytes % (Manual) Seg Neutrophils # Seg Neutrophils # Man Lymphocytes # (Manual) Monocytes % (Manual) Eosinophils % (Manual) Monocytes # (Manual) Eosinophils # (Manual) D-Dimer Heparin Anti-Xa Level ABG pH POC ABG pCO2 POC ABG pO2 ABG pO2 ABG HCO3 ABG O2 Saturation ABG Base Excess ABG Hemoglobin ABG Oxyhemoglobin VBG pH ABG Sodium ABG Potassium ABG Glucose Oxyhemoglobin Sodium Potassium Chloride Carbon Dioxide BUN Creatinine Glucose POC Glucose 221 H 218 H 163 H Lactic Acid Calcium Ferritin AST Alkaline Phosphatase Magnesium Lactate Dehydrogenase Total Creatine Kinase CK-MB (CK-2) C-Reactive Protein Total Protein Albumin Troponin T HDL Cholesterol Arterial Blood Glucose Urine WBC (Auto) Urine Creatinine Urine Total Protein Phenytoin Coronavirus (PCR) Crossmatch 06/08/20 06/09/20 06/09/20 22:01 00:09 05:16 WBC 19.0 H RBC 3.35 L Hgb 9.2 L Hct 28.5 L MCHC RDW 16.3 H Lymph % (Auto) Evans % (Auto) Eos % (Auto) Lymph # Evans # Lymph # (Auto) Evans # (Auto) Eos # (Auto) Seg Neutrophils % Seg Neuts % (Manual) 85.0 H Lymphocytes % (Manual) 7.0 L Seg Neutrophils # Seg Neutrophils # Man 16.2 H Lymphocytes # (Manual) Monocytes % (Manual) Eosinophils % (Manual) Monocytes # (Manual) 1.3 H Eosinophils # (Manual) D-Dimer Heparin Anti-Xa Level ABG pH POC ABG pCO2 POC ABG pO2 ABG pO2 ABG HCO3 ABG O2 Saturation ABG Base Excess ABG Hemoglobin ABG Oxyhemoglobin VBG pH ABG Sodium ABG Potassium ABG Glucose Oxyhemoglobin Sodium Potassium Chloride Carbon Dioxide BUN Creatinine Glucose POC Glucose 182 H 150 H Lactic Acid Calcium Ferritin AST Alkaline Phosphatase Magnesium Lactate Dehydrogenase Total Creatine Kinase CK-MB (CK-2) C-Reactive Protein Total Protein Albumin Troponin T HDL Cholesterol Arterial Blood Glucose Urine WBC (Auto) Urine Creatinine Urine Total Protein Phenytoin Coronavirus (PCR) Crossmatch 06/09/20 06/09/20 06/09/20 05:16 05:24 11:29 WBC RBC Hgb Hct MCHC RDW Lymph % (Auto) Evans % (Auto) Eos % (Auto) Lymph # Evans # Lymph # (Auto) Evans # (Auto) Eos # (Auto) Seg Neutrophils % Seg Neuts % (Manual) Lymphocytes % (Manual) Seg Neutrophils # Seg Neutrophils # Man Lymphocytes # (Manual) Monocytes % (Manual) Eosinophils % (Manual) Monocytes # (Manual) Eosinophils # (Manual) D-Dimer Heparin Anti-Xa Level ABG pH POC ABG pCO2 POC ABG pO2 ABG pO2 ABG HCO3 ABG O2 Saturation ABG Base Excess ABG Hemoglobin ABG Oxyhemoglobin VBG pH ABG Sodium ABG Potassium ABG Glucose Oxyhemoglobin Sodium 133 L Potassium Chloride Carbon Dioxide 19 L BUN 109 H Creatinine 2.1 H Glucose 133 H POC Glucose 128 H 119 H Lactic Acid Calcium 7.7 L Ferritin AST Alkaline Phosphatase < 5 L Magnesium Lactate Dehydrogenase Total Creatine Kinase CK-MB (CK-2) C-Reactive Protein Total Protein 4.6 L Albumin < 0.2 L Troponin T HDL Cholesterol Arterial Blood Glucose Urine WBC (Auto) Urine Creatinine Urine Total Protein Phenytoin Coronavirus (PCR) Crossmatch 06/09/20 06/10/20 06/10/20 17:32 00:00 05:49 WBC RBC Hgb Hct MCHC RDW Lymph % (Auto) Evans % (Auto) Eos % (Auto) Lymph # Evans # Lymph # (Auto) Evans # (Auto) Eos # (Auto) Seg Neutrophils % Seg Neuts % (Manual) Lymphocytes % (Manual) Seg Neutrophils # Seg Neutrophils # Man Lymphocytes # (Manual) Monocytes % (Manual) Eosinophils % (Manual) Monocytes # (Manual) Eosinophils # (Manual) D-Dimer Heparin Anti-Xa Level 0.19 L ABG pH POC ABG pCO2 POC ABG pO2 ABG pO2 ABG HCO3 ABG O2 Saturation ABG Base Excess ABG Hemoglobin ABG Oxyhemoglobin VBG pH ABG Sodium ABG Potassium ABG Glucose Oxyhemoglobin Sodium Potassium Chloride Carbon Dioxide BUN Creatinine Glucose POC Glucose 106 H 117 H Lactic Acid Calcium Ferritin AST Alkaline Phosphatase Magnesium Lactate Dehydrogenase Total Creatine Kinase CK-MB (CK-2) C-Reactive Protein Total Protein Albumin Troponin T HDL Cholesterol Arterial Blood Glucose Urine WBC (Auto) Urine Creatinine Urine Total Protein Phenytoin Coronavirus (PCR) Crossmatch 06/10/20 06/10/20 06/10/20 05:54 07:40 11:40 WBC RBC Hgb Hct MCHC RDW Lymph % (Auto) Evans % (Auto) Eos % (Auto) Lymph # Evans # Lymph # (Auto) Evans # (Auto) Eos # (Auto) Seg Neutrophils % Seg Neuts % (Manual) Lymphocytes % (Manual) Seg Neutrophils # Seg Neutrophils # Man Lymphocytes # (Manual) Monocytes % (Manual) Eosinophils % (Manual) Monocytes # (Manual) Eosinophils # (Manual) D-Dimer Heparin Anti-Xa Level ABG pH POC ABG pCO2 POC ABG pO2 ABG pO2 ABG HCO3 ABG O2 Saturation ABG Base Excess ABG Hemoglobin ABG Oxyhemoglobin VBG pH ABG Sodium ABG Potassium ABG Glucose Oxyhemoglobin Sodium 146 H D Potassium Chloride Carbon Dioxide 20 L BUN 99 H Creatinine 1.9 H Glucose 121 H POC Glucose 127 H 138 H Lactic Acid Calcium 8.2 L Ferritin AST Alkaline Phosphatase Magnesium Lactate Dehydrogenase Total Creatine Kinase CK-MB (CK-2) C-Reactive Protein Total Protein Albumin Troponin T HDL Cholesterol Arterial Blood Glucose Urine WBC (Auto) Urine Creatinine Urine Total Protein Phenytoin Coronavirus (PCR) Crossmatch 06/10/20 06/10/20 06/10/20 14:44 17:31 23:22 WBC RBC Hgb Hct MCHC RDW Lymph % (Auto) Evans % (Auto) Eos % (Auto) Lymph # Evans # Lymph # (Auto) Evans # (Auto) Eos # (Auto) Seg Neutrophils % Seg Neuts % (Manual) Lymphocytes % (Manual) Seg Neutrophils # Seg Neutrophils # Man Lymphocytes # (Manual) Monocytes % (Manual) Eosinophils % (Manual) Monocytes # (Manual) Eosinophils # (Manual) D-Dimer Heparin Anti-Xa Level 0.17 L ABG pH POC ABG pCO2 POC ABG pO2 ABG pO2 ABG HCO3 ABG O2 Saturation ABG Base Excess ABG Hemoglobin ABG Oxyhemoglobin VBG pH ABG Sodium ABG Potassium ABG Glucose Oxyhemoglobin Sodium Potassium Chloride Carbon Dioxide BUN Creatinine Glucose POC Glucose 128 H 114 H Lactic Acid Calcium Ferritin AST Alkaline Phosphatase Magnesium Lactate Dehydrogenase Total Creatine Kinase CK-MB (CK-2) C-Reactive Protein Total Protein Albumin Troponin T HDL Cholesterol Arterial Blood Glucose Urine WBC (Auto) Urine Creatinine Urine Total Protein Phenytoin Coronavirus (PCR) Crossmatch 06/11/20 06/11/20 06/11/20 00:22 03:45 03:45 WBC 14.6 H RBC 2.77 L Hgb 7.9 L Hct 24.3 L MCHC RDW 16.8 H Lymph % (Auto) 6.6 L Evans % (Auto) 8.5 H Eos % (Auto) Lymph # 1.0 L Evans # 1.2 H Lymph # (Auto) Evans # (Auto) Eos # (Auto) Seg Neutrophils % 82.9 H Seg Neuts % (Manual) Lymphocytes % (Manual) Seg Neutrophils # 12.1 H Seg Neutrophils # Man Lymphocytes # (Manual) Monocytes % (Manual) Eosinophils % (Manual) Monocytes # (Manual) Eosinophils # (Manual) D-Dimer Heparin Anti-Xa Level 0.24 L ABG pH POC ABG pCO2 POC ABG pO2 ABG pO2 ABG HCO3 ABG O2 Saturation ABG Base Excess ABG Hemoglobin ABG Oxyhemoglobin VBG pH ABG Sodium ABG Potassium ABG Glucose Oxyhemoglobin Sodium Potassium Chloride Carbon Dioxide 20 L BUN 88 H Creatinine 1.5 H Glucose 111 H POC Glucose Lactic Acid Calcium 8.2 L Ferritin AST Alkaline Phosphatase Magnesium Lactate Dehydrogenase Total Creatine Kinase CK-MB (CK-2) C-Reactive Protein Total Protein Albumin Troponin T HDL Cholesterol Arterial Blood Glucose Urine WBC (Auto) Urine Creatinine Urine Total Protein Phenytoin Coronavirus (PCR) Crossmatch 06/11/20 06/11/20 06/11/20 06:03 10:22 11:11 WBC RBC Hgb Hct MCHC RDW Lymph % (Auto) Evans % (Auto) Eos % (Auto) Lymph # Evans # Lymph # (Auto) Evans # (Auto) Eos # (Auto) Seg Neutrophils % Seg Neuts % (Manual) Lymphocytes % (Manual) Seg Neutrophils # Seg Neutrophils # Man Lymphocytes # (Manual) Monocytes % (Manual) Eosinophils % (Manual) Monocytes # (Manual) Eosinophils # (Manual) D-Dimer Heparin Anti-Xa Level 0.26 L ABG pH POC ABG pCO2 POC ABG pO2 ABG pO2 ABG HCO3 ABG O2 Saturation ABG Base Excess ABG Hemoglobin 9.6 L ABG Oxyhemoglobin VBG pH ABG Sodium ABG Potassium ABG Glucose Oxyhemoglobin Sodium Potassium Chloride Carbon Dioxide BUN Creatinine Glucose POC Glucose 114 H Lactic Acid Calcium Ferritin AST Alkaline Phosphatase Magnesium Lactate Dehydrogenase Total Creatine Kinase CK-MB (CK-2) C-Reactive Protein Total Protein Albumin Troponin T HDL Cholesterol Arterial Blood Glucose Urine WBC (Auto) Urine Creatinine Urine Total Protein Phenytoin Coronavirus (PCR) Crossmatch 06/11/20 06/11/20 06/12/20 12:24 17:24 00:21 WBC RBC Hgb Hct MCHC RDW Lymph % (Auto) Evans % (Auto) Eos % (Auto) Lymph # Evans # Lymph # (Auto) Evans # (Auto) Eos # (Auto) Seg Neutrophils % Seg Neuts % (Manual) Lymphocytes % (Manual) Seg Neutrophils # Seg Neutrophils # Man Lymphocytes # (Manual) Monocytes % (Manual) Eosinophils % (Manual) Monocytes # (Manual) Eosinophils # (Manual) D-Dimer Heparin Anti-Xa Level ABG pH POC ABG pCO2 POC ABG pO2 ABG pO2 ABG HCO3 ABG O2 Saturation ABG Base Excess ABG Hemoglobin ABG Oxyhemoglobin VBG pH ABG Sodium ABG Potassium ABG Glucose Oxyhemoglobin Sodium Potassium Chloride Carbon Dioxide BUN Creatinine Glucose POC Glucose 119 H 126 H 117 H Lactic Acid Calcium Ferritin AST Alkaline Phosphatase Magnesium Lactate Dehydrogenase Total Creatine Kinase CK-MB (CK-2) C-Reactive Protein Total Protein Albumin Troponin T HDL Cholesterol Arterial Blood Glucose Urine WBC (Auto) Urine Creatinine Urine Total Protein Phenytoin Coronavirus (PCR) Crossmatch 06/12/20 06/12/20 06/12/20 02:46 02:46 05:46 WBC 13.2 H RBC 2.83 L Hgb 8.3 L Hct 24.3 L MCHC RDW 16.6 H Lymph % (Auto) 6.2 L Evans % (Auto) 9.5 H Eos % (Auto) Lymph # 0.8 L Evans # 1.3 H Lymph # (Auto) Evans # (Auto) Eos # (Auto) Seg Neutrophils % 81.9 H Seg Neuts % (Manual) Lymphocytes % (Manual) Seg Neutrophils # 10.9 H Seg Neutrophils # Man Lymphocytes # (Manual) Monocytes % (Manual) Eosinophils % (Manual) Monocytes # (Manual) Eosinophils # (Manual) D-Dimer Heparin Anti-Xa Level ABG pH POC ABG pCO2 POC ABG pO2 ABG pO2 ABG HCO3 ABG O2 Saturation ABG Base Excess ABG Hemoglobin ABG Oxyhemoglobin VBG pH ABG Sodium ABG Potassium ABG Glucose Oxyhemoglobin Sodium Potassium 3.5 L Chloride Carbon Dioxide BUN 77 H Creatinine 1.3 H Glucose POC Glucose 132 H Lactic Acid Calcium 8.3 L Ferritin AST Alkaline Phosphatase Magnesium Lactate Dehydrogenase Total Creatine Kinase CK-MB (CK-2) C-Reactive Protein Total Protein Albumin Troponin T HDL Cholesterol Arterial Blood Glucose Urine WBC (Auto) Urine Creatinine Urine Total Protein Phenytoin Coronavirus (PCR) Crossmatch 06/12/20 06/12/20 06/12/20 09:20 12:16 17:48 WBC RBC Hgb Hct MCHC RDW Lymph % (Auto) Evans % (Auto) Eos % (Auto) Lymph # Evans # Lymph # (Auto) Evans # (Auto) Eos # (Auto) Seg Neutrophils % Seg Neuts % (Manual) Lymphocytes % (Manual) Seg Neutrophils # Seg Neutrophils # Man Lymphocytes # (Manual) Monocytes % (Manual) Eosinophils % (Manual) Monocytes # (Manual) Eosinophils # (Manual) D-Dimer Heparin Anti-Xa Level ABG pH POC ABG pCO2 POC ABG pO2 ABG pO2 91.1 H ABG HCO3 ABG O2 Saturation ABG Base Excess ABG Hemoglobin ABG Oxyhemoglobin VBG pH ABG Sodium ABG Potassium ABG Glucose Oxyhemoglobin 94.8 L Sodium Potassium Chloride Carbon Dioxide BUN Creatinine Glucose POC Glucose 167 H 182 H Lactic Acid Calcium Ferritin AST Alkaline Phosphatase Magnesium Lactate Dehydrogenase Total Creatine Kinase CK-MB (CK-2) C-Reactive Protein Total Protein Albumin Troponin T HDL Cholesterol Arterial Blood Glucose Urine WBC (Auto) Urine Creatinine Urine Total Protein Phenytoin Coronavirus (PCR) Crossmatch 06/13/20 06/13/20 06/13/20 00:08 05:37 09:09 WBC RBC Hgb Hct MCHC RDW Lymph % (Auto) Evans % (Auto) Eos % (Auto) Lymph # Evans # Lymph # (Auto) Evans # (Auto) Eos # (Auto) Seg Neutrophils % Seg Neuts % (Manual) Lymphocytes % (Manual) Seg Neutrophils # Seg Neutrophils # Man Lymphocytes # (Manual) Monocytes % (Manual) Eosinophils % (Manual) Monocytes # (Manual) Eosinophils # (Manual) D-Dimer Heparin Anti-Xa Level 0.86 H ABG pH POC ABG pCO2 POC ABG pO2 ABG pO2 ABG HCO3 ABG O2 Saturation ABG Base Excess ABG Hemoglobin ABG Oxyhemoglobin VBG pH ABG Sodium ABG Potassium ABG Glucose Oxyhemoglobin Sodium Potassium Chloride Carbon Dioxide BUN Creatinine Glucose POC Glucose 142 H 119 H Lactic Acid Calcium Ferritin AST Alkaline Phosphatase Magnesium Lactate Dehydrogenase Total Creatine Kinase CK-MB (CK-2) C-Reactive Protein Total Protein Albumin Troponin T HDL Cholesterol Arterial Blood Glucose Urine WBC (Auto) Urine Creatinine Urine Total Protein Phenytoin Coronavirus (PCR) Crossmatch 06/13/20 06/13/20 06/13/20 12:28 17:55 21:17 WBC RBC Hgb Hct MCHC RDW Lymph % (Auto) Evans % (Auto) Eos % (Auto) Lymph # Evans # Lymph # (Auto) Evans # (Auto) Eos # (Auto) Seg Neutrophils % Seg Neuts % (Manual) Lymphocytes % (Manual) Seg Neutrophils # Seg Neutrophils # Man Lymphocytes # (Manual) Monocytes % (Manual) Eosinophils % (Manual) Monocytes # (Manual) Eosinophils # (Manual) D-Dimer Heparin Anti-Xa Level ABG pH POC ABG pCO2 POC ABG pO2 ABG pO2 ABG HCO3 ABG O2 Saturation ABG Base Excess ABG Hemoglobin ABG Oxyhemoglobin VBG pH ABG Sodium ABG Potassium ABG Glucose Oxyhemoglobin Sodium Potassium Chloride Carbon Dioxide BUN 61 H Creatinine Glucose 131 H POC Glucose 165 H 174 H Lactic Acid Calcium Ferritin AST Alkaline Phosphatase Magnesium Lactate Dehydrogenase Total Creatine Kinase CK-MB (CK-2) C-Reactive Protein Total Protein Albumin Troponin T HDL Cholesterol Arterial Blood Glucose Urine WBC (Auto) Urine Creatinine Urine Total Protein Phenytoin Coronavirus (PCR) Crossmatch 06/13/20 06/13/20 06/14/20 21:17 23:50 05:34 WBC RBC Hgb Hct MCHC RDW Lymph % (Auto) Evans % (Auto) Eos % (Auto) Lymph # Evans # Lymph # (Auto) Evans # (Auto) Eos # (Auto) Seg Neutrophils % Seg Neuts % (Manual) Lymphocytes % (Manual) Seg Neutrophils # Seg Neutrophils # Man Lymphocytes # (Manual) Monocytes % (Manual) Eosinophils % (Manual) Monocytes # (Manual) Eosinophils # (Manual) D-Dimer Heparin Anti-Xa Level 0.72 H ABG pH POC ABG pCO2 POC ABG pO2 ABG pO2 ABG HCO3 ABG O2 Saturation ABG Base Excess ABG Hemoglobin ABG Oxyhemoglobin VBG pH ABG Sodium ABG Potassium ABG Glucose Oxyhemoglobin Sodium 146 H Potassium Chloride 107.6 H Carbon Dioxide BUN 61 H Creatinine 1.3 H Glucose 135 H POC Glucose 146 H Lactic Acid Calcium Ferritin AST Alkaline Phosphatase Magnesium Lactate Dehydrogenase Total Creatine Kinase CK-MB (CK-2) C-Reactive Protein Total Protein Albumin Troponin T HDL Cholesterol Arterial Blood Glucose Urine WBC (Auto) Urine Creatinine Urine Total Protein Phenytoin Coronavirus (PCR) Crossmatch 06/14/20 06/14/20 06/14/20 06:11 09:28 11:30 WBC RBC Hgb Hct MCHC RDW Lymph % (Auto) Evans % (Auto) Eos % (Auto) Lymph # Evans # Lymph # (Auto) Evans # (Auto) Eos # (Auto) Seg Neutrophils % Seg Neuts % (Manual) Lymphocytes % (Manual) Seg Neutrophils # Seg Neutrophils # Man Lymphocytes # (Manual) Monocytes % (Manual) Eosinophils % (Manual) Monocytes # (Manual) Eosinophils # (Manual) D-Dimer Heparin Anti-Xa Level 0.90 H ABG pH POC ABG pCO2 POC ABG pO2 ABG pO2 ABG HCO3 ABG O2 Saturation ABG Base Excess ABG Hemoglobin ABG Oxyhemoglobin VBG pH ABG Sodium ABG Potassium ABG Glucose Oxyhemoglobin Sodium Potassium Chloride Carbon Dioxide BUN Creatinine Glucose POC Glucose 141 H 186 H Lactic Acid Calcium Ferritin AST Alkaline Phosphatase Magnesium Lactate Dehydrogenase Total Creatine Kinase CK-MB (CK-2) C-Reactive Protein Total Protein Albumin Troponin T HDL Cholesterol Arterial Blood Glucose Urine WBC (Auto) Urine Creatinine Urine Total Protein Phenytoin Coronavirus (PCR) Crossmatch 06/14/20 06/14/20 06/14/20 16:07 18:16 23:51 WBC RBC Hgb Hct MCHC RDW Lymph % (Auto) Evans % (Auto) Eos % (Auto) Lymph # Evans # Lymph # (Auto) Evans # (Auto) Eos # (Auto) Seg Neutrophils % Seg Neuts % (Manual) Lymphocytes % (Manual) Seg Neutrophils # Seg Neutrophils # Man Lymphocytes # (Manual) Monocytes % (Manual) Eosinophils % (Manual) Monocytes # (Manual) Eosinophils # (Manual) D-Dimer Heparin Anti-Xa Level 0.82 H ABG pH POC ABG pCO2 POC ABG pO2 ABG pO2 ABG HCO3 ABG O2 Saturation ABG Base Excess ABG Hemoglobin ABG Oxyhemoglobin VBG pH ABG Sodium ABG Potassium ABG Glucose Oxyhemoglobin Sodium Potassium Chloride Carbon Dioxide BUN Creatinine Glucose POC Glucose 106 H 154 H Lactic Acid Calcium Ferritin AST Alkaline Phosphatase Magnesium Lactate Dehydrogenase Total Creatine Kinase CK-MB (CK-2) C-Reactive Protein Total Protein Albumin Troponin T HDL Cholesterol Arterial Blood Glucose Urine WBC (Auto) Urine Creatinine Urine Total Protein Phenytoin Coronavirus (PCR) Crossmatch 06/15/20 06/15/20 06/15/20 04:24 04:24 05:59 WBC RBC 2.75 L Hgb 7.9 L Hct 24.0 L MCHC RDW 16.4 H Lymph % (Auto) 12.9 L Evans % (Auto) 8.7 H Eos % (Auto) 4.6 H Lymph # 1.1 L Evans # Lymph # (Auto) Evans # (Auto) Eos # (Auto) Seg Neutrophils % 73.2 H Seg Neuts % (Manual) Lymphocytes % (Manual) Seg Neutrophils # Seg Neutrophils # Man Lymphocytes # (Manual) Monocytes % (Manual) Eosinophils % (Manual) Monocytes # (Manual) Eosinophils # (Manual) D-Dimer Heparin Anti-Xa Level ABG pH POC ABG pCO2 POC ABG pO2 ABG pO2 ABG HCO3 ABG O2 Saturation ABG Base Excess ABG Hemoglobin ABG Oxyhemoglobin VBG pH ABG Sodium ABG Potassium ABG Glucose Oxyhemoglobin Sodium Potassium 3.4 L Chloride Carbon Dioxide BUN 55 H Creatinine 1.3 H Glucose 142 H POC Glucose 131 H Lactic Acid Calcium Ferritin AST Alkaline Phosphatase Magnesium Lactate Dehydrogenase Total Creatine Kinase CK-MB (CK-2) C-Reactive Protein Total Protein Albumin Troponin T HDL Cholesterol Arterial Blood Glucose Urine WBC (Auto) Urine Creatinine Urine Total Protein Phenytoin Coronavirus (PCR) Crossmatch 06/15/20 06/15/20 06/16/20 12:33 17:07 00:22 WBC RBC Hgb Hct MCHC RDW Lymph % (Auto) Evans % (Auto) Eos % (Auto) Lymph # Evans # Lymph # (Auto) Evans # (Auto) Eos # (Auto) Seg Neutrophils % Seg Neuts % (Manual) Lymphocytes % (Manual) Seg Neutrophils # Seg Neutrophils # Man Lymphocytes # (Manual) Monocytes % (Manual) Eosinophils % (Manual) Monocytes # (Manual) Eosinophils # (Manual) D-Dimer Heparin Anti-Xa Level 0.21 L ABG pH POC ABG pCO2 POC ABG pO2 ABG pO2 ABG HCO3 ABG O2 Saturation ABG Base Excess ABG Hemoglobin ABG Oxyhemoglobin VBG pH ABG Sodium ABG Potassium ABG Glucose Oxyhemoglobin Sodium Potassium Chloride Carbon Dioxide BUN Creatinine Glucose POC Glucose 180 H 185 H Lactic Acid Calcium Ferritin AST Alkaline Phosphatase Magnesium Lactate Dehydrogenase Total Creatine Kinase CK-MB (CK-2) C-Reactive Protein Total Protein Albumin Troponin T HDL Cholesterol Arterial Blood Glucose Urine WBC (Auto) Urine Creatinine Urine Total Protein Phenytoin Coronavirus (PCR) Crossmatch 06/16/20 06/16/20 06/16/20 01:45 08:06 09:15 WBC RBC Hgb Hct MCHC RDW Lymph % (Auto) Evans % (Auto) Eos % (Auto) Lymph # Evans # Lymph # (Auto) Evans # (Auto) Eos # (Auto) Seg Neutrophils % Seg Neuts % (Manual) Lymphocytes % (Manual) Seg Neutrophils # Seg Neutrophils # Man Lymphocytes # (Manual) Monocytes % (Manual) Eosinophils % (Manual) Monocytes # (Manual) Eosinophils # (Manual) D-Dimer Heparin Anti-Xa Level ABG pH POC ABG pCO2 POC ABG pO2 ABG pO2 ABG HCO3 ABG O2 Saturation ABG Base Excess ABG Hemoglobin ABG Oxyhemoglobin VBG pH ABG Sodium ABG Potassium ABG Glucose Oxyhemoglobin Sodium Potassium Chloride Carbon Dioxide BUN 49 H Creatinine Glucose 154 H POC Glucose 140 H 171 H Lactic Acid Calcium Ferritin AST Alkaline Phosphatase Magnesium Lactate Dehydrogenase Total Creatine Kinase CK-MB (CK-2) C-Reactive Protein Total Protein Albumin Troponin T HDL Cholesterol Arterial Blood Glucose Urine WBC (Auto) Urine Creatinine Urine Total Protein Phenytoin Coronavirus (PCR) Crossmatch 06/16/20 06/16/20 06/16/20 10:46 12:33 17:54 WBC RBC Hgb Hct MCHC RDW Lymph % (Auto) Evans % (Auto) Eos % (Auto) Lymph # Evans # Lymph # (Auto) Evans # (Auto) Eos # (Auto) Seg Neutrophils % Seg Neuts % (Manual) Lymphocytes % (Manual) Seg Neutrophils # Seg Neutrophils # Man Lymphocytes # (Manual) Monocytes % (Manual) Eosinophils % (Manual) Monocytes # (Manual) Eosinophils # (Manual) D-Dimer Heparin Anti-Xa Level 0.12 L ABG pH POC ABG pCO2 POC ABG pO2 ABG pO2 ABG HCO3 ABG O2 Saturation ABG Base Excess ABG Hemoglobin ABG Oxyhemoglobin VBG pH ABG Sodium ABG Potassium ABG Glucose Oxyhemoglobin Sodium Potassium Chloride Carbon Dioxide BUN Creatinine Glucose POC Glucose 166 H 151 H Lactic Acid Calcium Ferritin AST Alkaline Phosphatase Magnesium Lactate Dehydrogenase Total Creatine Kinase CK-MB (CK-2) C-Reactive Protein Total Protein Albumin Troponin T HDL Cholesterol Arterial Blood Glucose Urine WBC (Auto) Urine Creatinine Urine Total Protein Phenytoin Coronavirus (PCR) Crossmatch 06/16/20 06/17/20 06/17/20 18:47 00:00 02:19 WBC RBC Hgb Hct MCHC RDW Lymph % (Auto) Evans % (Auto) Eos % (Auto) Lymph # Evans # Lymph # (Auto) Evans # (Auto) Eos # (Auto) Seg Neutrophils % Seg Neuts % (Manual) Lymphocytes % (Manual) Seg Neutrophils # Seg Neutrophils # Man Lymphocytes # (Manual) Monocytes % (Manual) Eosinophils % (Manual) Monocytes # (Manual) Eosinophils # (Manual) D-Dimer Heparin Anti-Xa Level 0.73 H 0.77 H ABG pH POC ABG pCO2 POC ABG pO2 ABG pO2 ABG HCO3 ABG O2 Saturation ABG Base Excess ABG Hemoglobin ABG Oxyhemoglobin VBG pH ABG Sodium ABG Potassium ABG Glucose Oxyhemoglobin Sodium Potassium Chloride Carbon Dioxide BUN Creatinine Glucose POC Glucose 139 H Lactic Acid Calcium Ferritin AST Alkaline Phosphatase Magnesium Lactate Dehydrogenase Total Creatine Kinase CK-MB (CK-2) C-Reactive Protein Total Protein Albumin Troponin T HDL Cholesterol Arterial Blood Glucose Urine WBC (Auto) Urine Creatinine Urine Total Protein Phenytoin Coronavirus (PCR) Crossmatch 06/17/20 06/17/20 06/17/20 06:07 11:42 16:43 WBC RBC Hgb Hct MCHC RDW Lymph % (Auto) Evans % (Auto) Eos % (Auto) Lymph # Evans # Lymph # (Auto) Evans # (Auto) Eos # (Auto) Seg Neutrophils % Seg Neuts % (Manual) Lymphocytes % (Manual) Seg Neutrophils # Seg Neutrophils # Man Lymphocytes # (Manual) Monocytes % (Manual) Eosinophils % (Manual) Monocytes # (Manual) Eosinophils # (Manual) D-Dimer Heparin Anti-Xa Level 0.73 H ABG pH POC ABG pCO2 POC ABG pO2 ABG pO2 ABG HCO3 ABG O2 Saturation ABG Base Excess ABG Hemoglobin ABG Oxyhemoglobin VBG pH ABG Sodium ABG Potassium ABG Glucose Oxyhemoglobin Sodium Potassium Chloride Carbon Dioxide BUN Creatinine Glucose POC Glucose 169 H 169 H Lactic Acid Calcium Ferritin AST Alkaline Phosphatase Magnesium Lactate Dehydrogenase Total Creatine Kinase CK-MB (CK-2) C-Reactive Protein Total Protein Albumin Troponin T HDL Cholesterol Arterial Blood Glucose Urine WBC (Auto) Urine Creatinine Urine Total Protein Phenytoin Coronavirus (PCR) Crossmatch 06/17/20 06/17/20 06/17/20 18:18 23:08 23:16 WBC RBC Hgb Hct MCHC RDW Lymph % (Auto) Evans % (Auto) Eos % (Auto) Lymph # Evans # Lymph # (Auto) Evans # (Auto) Eos # (Auto) Seg Neutrophils % Seg Neuts % (Manual) Lymphocytes % (Manual) Seg Neutrophils # Seg Neutrophils # Man Lymphocytes # (Manual) Monocytes % (Manual) Eosinophils % (Manual) Monocytes # (Manual) Eosinophils # (Manual) D-Dimer Heparin Anti-Xa Level 0.71 H ABG pH POC ABG pCO2 POC ABG pO2 ABG pO2 ABG HCO3 ABG O2 Saturation ABG Base Excess ABG Hemoglobin ABG Oxyhemoglobin VBG pH ABG Sodium ABG Potassium ABG Glucose Oxyhemoglobin Sodium Potassium Chloride Carbon Dioxide BUN Creatinine Glucose POC Glucose 159 H 134 H Lactic Acid Calcium Ferritin AST Alkaline Phosphatase Magnesium Lactate Dehydrogenase Total Creatine Kinase CK-MB (CK-2) C-Reactive Protein Total Protein Albumin Troponin T HDL Cholesterol Arterial Blood Glucose Urine WBC (Auto) Urine Creatinine Urine Total Protein Phenytoin Coronavirus (PCR) Crossmatch 06/18/20 06/18/20 06/18/20 04:42 05:52 11:50 WBC RBC Hgb Hct MCHC RDW Lymph % (Auto) Evans % (Auto) Eos % (Auto) Lymph # Evans # Lymph # (Auto) Evans # (Auto) Eos # (Auto) Seg Neutrophils % Seg Neuts % (Manual) Lymphocytes % (Manual) Seg Neutrophils # Seg Neutrophils # Man Lymphocytes # (Manual) Monocytes % (Manual) Eosinophils % (Manual) Monocytes # (Manual) Eosinophils # (Manual) D-Dimer Heparin Anti-Xa Level ABG pH POC ABG pCO2 POC ABG pO2 ABG pO2 ABG HCO3 ABG O2 Saturation ABG Base Excess ABG Hemoglobin ABG Oxyhemoglobin VBG pH ABG Sodium ABG Potassium ABG Glucose Oxyhemoglobin Sodium Potassium Chloride Carbon Dioxide BUN 44 H Creatinine Glucose 115 H POC Glucose 171 H 167 H Lactic Acid Calcium Ferritin AST Alkaline Phosphatase Magnesium Lactate Dehydrogenase Total Creatine Kinase CK-MB (CK-2) C-Reactive Protein Total Protein Albumin Troponin T HDL Cholesterol Arterial Blood Glucose Urine WBC (Auto) Urine Creatinine Urine Total Protein Phenytoin Coronavirus (PCR) Crossmatch 06/18/20 06/19/20 06/19/20 23:46 05:48 07:52 WBC RBC Hgb Hct MCHC RDW Lymph % (Auto) Evans % (Auto) Eos % (Auto) Lymph # Evans # Lymph # (Auto) Evans # (Auto) Eos # (Auto) Seg Neutrophils % Seg Neuts % (Manual) Lymphocytes % (Manual) Seg Neutrophils # Seg Neutrophils # Man Lymphocytes # (Manual) Monocytes % (Manual) Eosinophils % (Manual) Monocytes # (Manual) Eosinophils # (Manual) D-Dimer Heparin Anti-Xa Level ABG pH POC ABG pCO2 POC ABG pO2 ABG pO2 ABG HCO3 ABG O2 Saturation ABG Base Excess ABG Hemoglobin ABG Oxyhemoglobin VBG pH ABG Sodium ABG Potassium ABG Glucose Oxyhemoglobin Sodium Potassium Chloride Carbon Dioxide BUN Creatinine Glucose POC Glucose 130 H 207 H 175 H Lactic Acid Calcium Ferritin AST Alkaline Phosphatase Magnesium Lactate Dehydrogenase Total Creatine Kinase CK-MB (CK-2) C-Reactive Protein Total Protein Albumin Troponin T HDL Cholesterol Arterial Blood Glucose Urine WBC (Auto) Urine Creatinine Urine Total Protein Phenytoin Coronavirus (PCR) Crossmatch 06/19/20 06/19/20 06/20/20 11:42 22:54 05:17 WBC RBC Hgb Hct MCHC RDW Lymph % (Auto) Evans % (Auto) Eos % (Auto) Lymph # Evans # Lymph # (Auto) Evans # (Auto) Eos # (Auto) Seg Neutrophils % Seg Neuts % (Manual) Lymphocytes % (Manual) Seg Neutrophils # Seg Neutrophils # Man Lymphocytes # (Manual) Monocytes % (Manual) Eosinophils % (Manual) Monocytes # (Manual) Eosinophils # (Manual) D-Dimer Heparin Anti-Xa Level ABG pH POC ABG pCO2 POC ABG pO2 ABG pO2 ABG HCO3 ABG O2 Saturation ABG Base Excess ABG Hemoglobin ABG Oxyhemoglobin VBG pH ABG Sodium ABG Potassium ABG Glucose Oxyhemoglobin Sodium Potassium Chloride Carbon Dioxide BUN Creatinine Glucose POC Glucose 166 H 135 H 218 H Lactic Acid Calcium Ferritin AST Alkaline Phosphatase Magnesium Lactate Dehydrogenase Total Creatine Kinase CK-MB (CK-2) C-Reactive Protein Total Protein Albumin Troponin T HDL Cholesterol Arterial Blood Glucose Urine WBC (Auto) Urine Creatinine Urine Total Protein Phenytoin Coronavirus (PCR) Crossmatch 06/20/20 06/20/20 06/20/20 12:04 16:25 16:35 WBC RBC Hgb Hct MCHC RDW Lymph % (Auto) Evans % (Auto) Eos % (Auto) Lymph # Evans # Lymph # (Auto) Evans # (Auto) Eos # (Auto) Seg Neutrophils % Seg Neuts % (Manual) Lymphocytes % (Manual) Seg Neutrophils # Seg Neutrophils # Man Lymphocytes # (Manual) Monocytes % (Manual) Eosinophils % (Manual) Monocytes # (Manual) Eosinophils # (Manual) D-Dimer Heparin Anti-Xa Level ABG pH POC ABG pCO2 POC ABG pO2 ABG pO2 59.6 L ABG HCO3 28.7 H ABG O2 Saturation 93.5 L ABG Base Excess 3.4 H ABG Hemoglobin 7.2 L ABG Oxyhemoglobin VBG pH ABG Sodium ABG Potassium ABG Glucose Oxyhemoglobin 91.3 L Sodium Potassium Chloride Carbon Dioxide BUN Creatinine Glucose POC Glucose 194 H 137 H Lactic Acid Calcium Ferritin AST Alkaline Phosphatase Magnesium Lactate Dehydrogenase Total Creatine Kinase CK-MB (CK-2) C-Reactive Protein Total Protein Albumin Troponin T HDL Cholesterol Arterial Blood Glucose Urine WBC (Auto) Urine Creatinine Urine Total Protein Phenytoin Coronavirus (PCR) Crossmatch 06/20/20 06/21/20 06/21/20 23:59 06:25 12:01 WBC RBC Hgb Hct MCHC RDW Lymph % (Auto) Evans % (Auto) Eos % (Auto) Lymph # Evans # Lymph # (Auto) Evans # (Auto) Eos # (Auto) Seg Neutrophils % Seg Neuts % (Manual) Lymphocytes % (Manual) Seg Neutrophils # Seg Neutrophils # Man Lymphocytes # (Manual) Monocytes % (Manual) Eosinophils % (Manual) Monocytes # (Manual) Eosinophils # (Manual) D-Dimer Heparin Anti-Xa Level ABG pH POC ABG pCO2 POC ABG pO2 ABG pO2 ABG HCO3 ABG O2 Saturation ABG Base Excess ABG Hemoglobin ABG Oxyhemoglobin VBG pH ABG Sodium ABG Potassium ABG Glucose Oxyhemoglobin Sodium Potassium Chloride Carbon Dioxide BUN Creatinine Glucose POC Glucose 156 H 177 H 195 H Lactic Acid Calcium Ferritin AST Alkaline Phosphatase Magnesium Lactate Dehydrogenase Total Creatine Kinase CK-MB (CK-2) C-Reactive Protein Total Protein Albumin Troponin T HDL Cholesterol Arterial Blood Glucose Urine WBC (Auto) Urine Creatinine Urine Total Protein Phenytoin Coronavirus (PCR) Crossmatch 06/21/20 06/21/20 06/22/20 17:04 21:51 05:06 WBC RBC Hgb Hct MCHC RDW Lymph % (Auto) Evans % (Auto) Eos % (Auto) Lymph # Evans # Lymph # (Auto) Evans # (Auto) Eos # (Auto) Seg Neutrophils % Seg Neuts % (Manual) Lymphocytes % (Manual) Seg Neutrophils # Seg Neutrophils # Man Lymphocytes # (Manual) Monocytes % (Manual) Eosinophils % (Manual) Monocytes # (Manual) Eosinophils # (Manual) D-Dimer Heparin Anti-Xa Level ABG pH POC ABG pCO2 POC ABG pO2 ABG pO2 ABG HCO3 ABG O2 Saturation ABG Base Excess ABG Hemoglobin ABG Oxyhemoglobin VBG pH ABG Sodium ABG Potassium ABG Glucose Oxyhemoglobin Sodium Potassium Chloride Carbon Dioxide BUN Creatinine Glucose POC Glucose 156 H 154 H 167 H Lactic Acid Calcium Ferritin AST Alkaline Phosphatase Magnesium Lactate Dehydrogenase Total Creatine Kinase CK-MB (CK-2) C-Reactive Protein Total Protein Albumin Troponin T HDL Cholesterol Arterial Blood Glucose Urine WBC (Auto) Urine Creatinine Urine Total Protein Phenytoin Coronavirus (PCR) Crossmatch 06/22/20 06/22/20 06/22/20 11:20 15:27 16:58 WBC RBC Hgb Hct MCHC RDW Lymph % (Auto) Evans % (Auto) Eos % (Auto) Lymph # Evans # Lymph # (Auto) Evans # (Auto) Eos # (Auto) Seg Neutrophils % Seg Neuts % (Manual) Lymphocytes % (Manual) Seg Neutrophils # Seg Neutrophils # Man Lymphocytes # (Manual) Monocytes % (Manual) Eosinophils % (Manual) Monocytes # (Manual) Eosinophils # (Manual) D-Dimer Heparin Anti-Xa Level ABG pH 7.206 L POC ABG pCO2 79.9 H POC ABG pO2 ABG pO2 ABG HCO3 ABG O2 Saturation ABG Base Excess ABG Hemoglobin 8.3 L ABG Oxyhemoglobin VBG pH ABG Sodium ABG Potassium ABG Glucose Oxyhemoglobin Sodium Potassium Chloride Carbon Dioxide BUN Creatinine Glucose POC Glucose 181 H 230 H Lactic Acid Calcium Ferritin AST Alkaline Phosphatase Magnesium Lactate Dehydrogenase Total Creatine Kinase CK-MB (CK-2) C-Reactive Protein Total Protein Albumin Troponin T HDL Cholesterol Arterial Blood Glucose Urine WBC (Auto) Urine Creatinine Urine Total Protein Phenytoin Coronavirus (PCR) Crossmatch 06/22/20 06/23/20 06/23/20 22:26 05:49 05:49 WBC RBC 2.58 L Hgb 7.4 L Hct 23.2 L MCHC RDW 17.0 H Lymph % (Auto) Evans % (Auto) 11.2 H Eos % (Auto) Lymph # 1.0 L Evans # Lymph # (Auto) Evans # (Auto) Eos # (Auto) Seg Neutrophils % Seg Neuts % (Manual) Lymphocytes % (Manual) Seg Neutrophils # Seg Neutrophils # Man Lymphocytes # (Manual) Monocytes % (Manual) Eosinophils % (Manual) Monocytes # (Manual) Eosinophils # (Manual) D-Dimer Heparin Anti-Xa Level ABG pH POC ABG pCO2 POC ABG pO2 ABG pO2 ABG HCO3 ABG O2 Saturation ABG Base Excess ABG Hemoglobin ABG Oxyhemoglobin VBG pH ABG Sodium ABG Potassium ABG Glucose Oxyhemoglobin Sodium Potassium Chloride Carbon Dioxide BUN 68 H Creatinine 2.4 H Glucose 198 H POC Glucose 195 H Lactic Acid Calcium Ferritin AST Alkaline Phosphatase Magnesium Lactate Dehydrogenase Total Creatine Kinase CK-MB (CK-2) C-Reactive Protein Total Protein Albumin Troponin T HDL Cholesterol Arterial Blood Glucose Urine WBC (Auto) Urine Creatinine Urine Total Protein Phenytoin Coronavirus (PCR) Crossmatch 06/23/20 06/23/20 06/23/20 05:50 12:29 12:34 WBC RBC Hgb Hct MCHC RDW Lymph % (Auto) Evans % (Auto) Eos % (Auto) Lymph # Evans # Lymph # (Auto) Evans # (Auto) Eos # (Auto) Seg Neutrophils % Seg Neuts % (Manual) Lymphocytes % (Manual) Seg Neutrophils # Seg Neutrophils # Man Lymphocytes # (Manual) Monocytes % (Manual) Eosinophils % (Manual) Monocytes # (Manual) Eosinophils # (Manual) D-Dimer Heparin Anti-Xa Level ABG pH POC ABG pCO2 54.7 H POC ABG pO2 68.8 L ABG pO2 ABG HCO3 ABG O2 Saturation ABG Base Excess ABG Hemoglobin 9.8 L ABG Oxyhemoglobin 92.6 L VBG pH ABG Sodium ABG Potassium ABG Glucose Oxyhemoglobin Sodium Potassium Chloride Carbon Dioxide BUN Creatinine Glucose POC Glucose 202 H 218 H Lactic Acid Calcium Ferritin AST Alkaline Phosphatase Magnesium Lactate Dehydrogenase Total Creatine Kinase CK-MB (CK-2) C-Reactive Protein Total Protein Albumin Troponin T HDL Cholesterol Arterial Blood Glucose Urine WBC (Auto) Urine Creatinine Urine Total Protein Phenytoin Coronavirus (PCR) Crossmatch 06/23/20 06/23/20 06/24/20 16:02 22:22 01:06 WBC RBC Hgb Hct MCHC RDW Lymph % (Auto) Evans % (Auto) Eos % (Auto) Lymph # Evans # Lymph # (Auto) Evans # (Auto) Eos # (Auto) Seg Neutrophils % Seg Neuts % (Manual) Lymphocytes % (Manual) Seg Neutrophils # Seg Neutrophils # Man Lymphocytes # (Manual) Monocytes % (Manual) Eosinophils % (Manual) Monocytes # (Manual) Eosinophils # (Manual) D-Dimer Heparin Anti-Xa Level ABG pH POC ABG pCO2 POC ABG pO2 ABG pO2 ABG HCO3 ABG O2 Saturation ABG Base Excess ABG Hemoglobin ABG Oxyhemoglobin VBG pH ABG Sodium ABG Potassium ABG Glucose Oxyhemoglobin Sodium Potassium Chloride Carbon Dioxide BUN Creatinine Glucose POC Glucose 190 H 166 H 171 H Lactic Acid Calcium Ferritin AST Alkaline Phosphatase Magnesium Lactate Dehydrogenase Total Creatine Kinase CK-MB (CK-2) C-Reactive Protein Total Protein Albumin Troponin T HDL Cholesterol Arterial Blood Glucose Urine WBC (Auto) Urine Creatinine Urine Total Protein Phenytoin Coronavirus (PCR) Crossmatch 06/24/20 06/24/20 06/24/20 04:48 05:35 11:48 WBC RBC Hgb Hct MCHC RDW Lymph % (Auto) Evans % (Auto) Eos % (Auto) Lymph # Evans # Lymph # (Auto) Evans # (Auto) Eos # (Auto) Seg Neutrophils % Seg Neuts % (Manual) Lymphocytes % (Manual) Seg Neutrophils # Seg Neutrophils # Man Lymphocytes # (Manual) Monocytes % (Manual) Eosinophils % (Manual) Monocytes # (Manual) Eosinophils # (Manual) D-Dimer Heparin Anti-Xa Level ABG pH POC ABG pCO2 POC ABG pO2 ABG pO2 ABG HCO3 ABG O2 Saturation ABG Base Excess ABG Hemoglobin ABG Oxyhemoglobin VBG pH ABG Sodium ABG Potassium ABG Glucose Oxyhemoglobin Sodium Potassium Chloride Carbon Dioxide BUN 75 H Creatinine 2.6 H Glucose 179 H POC Glucose 172 H 153 H Lactic Acid Calcium Ferritin AST Alkaline Phosphatase Magnesium Lactate Dehydrogenase Total Creatine Kinase CK-MB (CK-2) C-Reactive Protein Total Protein Albumin Troponin T HDL Cholesterol Arterial Blood Glucose Urine WBC (Auto) Urine Creatinine Urine Total Protein Phenytoin Coronavirus (PCR) Crossmatch 06/24/20 06/24/20 06/25/20 16:38 21:52 12:00 WBC RBC Hgb Hct MCHC RDW Lymph % (Auto) Evans % (Auto) Eos % (Auto) Lymph # Evans # Lymph # (Auto) Evans # (Auto) Eos # (Auto) Seg Neutrophils % Seg Neuts % (Manual) Lymphocytes % (Manual) Seg Neutrophils # Seg Neutrophils # Man Lymphocytes # (Manual) Monocytes % (Manual) Eosinophils % (Manual) Monocytes # (Manual) Eosinophils # (Manual) D-Dimer Heparin Anti-Xa Level ABG pH POC ABG pCO2 POC ABG pO2 ABG pO2 ABG HCO3 ABG O2 Saturation ABG Base Excess ABG Hemoglobin ABG Oxyhemoglobin VBG pH ABG Sodium ABG Potassium ABG Glucose Oxyhemoglobin Sodium Potassium Chloride Carbon Dioxide BUN Creatinine Glucose POC Glucose 123 H 115 H 203 H Lactic Acid Calcium Ferritin AST Alkaline Phosphatase Magnesium Lactate Dehydrogenase Total Creatine Kinase CK-MB (CK-2) C-Reactive Protein Total Protein Albumin Troponin T HDL Cholesterol Arterial Blood Glucose Urine WBC (Auto) Urine Creatinine Urine Total Protein Phenytoin Coronavirus (PCR) Crossmatch 06/25/20 06/25/20 06/25/20 15:43 16:37 23:02 WBC RBC Hgb Hct MCHC RDW Lymph % (Auto) Evans % (Auto) Eos % (Auto) Lymph # Evans # Lymph # (Auto) Evans # (Auto) Eos # (Auto) Seg Neutrophils % Seg Neuts % (Manual) Lymphocytes % (Manual) Seg Neutrophils # Seg Neutrophils # Man Lymphocytes # (Manual) Monocytes % (Manual) Eosinophils % (Manual) Monocytes # (Manual) Eosinophils # (Manual) D-Dimer Heparin Anti-Xa Level ABG pH POC ABG pCO2 POC ABG pO2 ABG pO2 ABG HCO3 ABG O2 Saturation ABG Base Excess ABG Hemoglobin ABG Oxyhemoglobin VBG pH ABG Sodium ABG Potassium ABG Glucose Oxyhemoglobin Sodium Potassium Chloride Carbon Dioxide BUN 71 H Creatinine 1.8 H Glucose 170 H POC Glucose 191 H 126 H Lactic Acid Calcium 8.2 L Ferritin AST Alkaline Phosphatase Magnesium Lactate Dehydrogenase Total Creatine Kinase CK-MB (CK-2) C-Reactive Protein Total Protein Albumin Troponin T HDL Cholesterol Arterial Blood Glucose Urine WBC (Auto) Urine Creatinine Urine Total Protein Phenytoin Coronavirus (PCR) Crossmatch 06/26/20 06/26/20 06/26/20 06:34 06:34 09:27 WBC RBC 2.41 L Hgb 6.9 L Hct 21.5 L MCHC RDW 16.7 H Lymph % (Auto) 10.9 L Evans % (Auto) 9.6 H Eos % (Auto) Lymph # 0.7 L Evans # Lymph # (Auto) Evans # (Auto) Eos # (Auto) Seg Neutrophils % 75.4 H Seg Neuts % (Manual) Lymphocytes % (Manual) Seg Neutrophils # Seg Neutrophils # Man Lymphocytes # (Manual) Monocytes % (Manual) Eosinophils % (Manual) Monocytes # (Manual) Eosinophils # (Manual) D-Dimer Heparin Anti-Xa Level ABG pH POC ABG pCO2 POC ABG pO2 ABG pO2 ABG HCO3 ABG O2 Saturation ABG Base Excess ABG Hemoglobin ABG Oxyhemoglobin VBG pH ABG Sodium ABG Potassium ABG Glucose Oxyhemoglobin Sodium Potassium Chloride Carbon Dioxide BUN 77 H Creatinine 1.9 H Glucose 190 H POC Glucose Lactic Acid Calcium Ferritin AST Alkaline Phosphatase Magnesium Lactate Dehydrogenase Total Creatine Kinase CK-MB (CK-2) C-Reactive Protein Total Protein Albumin Troponin T HDL Cholesterol Arterial Blood Glucose Urine WBC (Auto) Urine Creatinine Urine Total Protein Phenytoin Coronavirus (PCR) Crossmatch See Detail 06/26/20 06/26/20 06/26/20 12:15 16:28 17:28 WBC RBC Hgb Hct MCHC RDW Lymph % (Auto) Evans % (Auto) Eos % (Auto) Lymph # Evans # Lymph # (Auto) Evans # (Auto) Eos # (Auto) Seg Neutrophils % Seg Neuts % (Manual) Lymphocytes % (Manual) Seg Neutrophils # Seg Neutrophils # Man Lymphocytes # (Manual) Monocytes % (Manual) Eosinophils % (Manual) Monocytes # (Manual) Eosinophils # (Manual) D-Dimer Heparin Anti-Xa Level ABG pH POC ABG pCO2 POC ABG pO2 ABG pO2 ABG HCO3 ABG O2 Saturation ABG Base Excess ABG Hemoglobin ABG Oxyhemoglobin VBG pH ABG Sodium ABG Potassium ABG Glucose Oxyhemoglobin Sodium Potassium Chloride Carbon Dioxide BUN Creatinine Glucose POC Glucose 187 H 149 H 189 H Lactic Acid Calcium Ferritin AST Alkaline Phosphatase Magnesium Lactate Dehydrogenase Total Creatine Kinase CK-MB (CK-2) C-Reactive Protein Total Protein Albumin Troponin T HDL Cholesterol Arterial Blood Glucose Urine WBC (Auto) Urine Creatinine Urine Total Protein Phenytoin Coronavirus (PCR) Crossmatch 06/26/20 06/26/20 06/26/20 18:30 18:30 18:30 WBC RBC 2.87 L Hgb 8.2 L Hct 25.9 L MCHC RDW 17.8 H Lymph % (Auto) Evans % (Auto) Eos % (Auto) Lymph # Evans # Lymph # (Auto) Evans # (Auto) Eos # (Auto) Seg Neutrophils % Seg Neuts % (Manual) 83.0 H Lymphocytes % (Manual) 8.0 L Seg Neutrophils # Seg Neutrophils # Man Lymphocytes # (Manual) 0.6 L Monocytes % (Manual) Eosinophils % (Manual) Monocytes # (Manual) Eosinophils # (Manual) D-Dimer Heparin Anti-Xa Level ABG pH POC ABG pCO2 POC ABG pO2 ABG pO2 ABG HCO3 ABG O2 Saturation ABG Base Excess ABG Hemoglobin ABG Oxyhemoglobin VBG pH ABG Sodium ABG Potassium ABG Glucose Oxyhemoglobin Sodium Potassium Chloride Carbon Dioxide BUN 80 H Creatinine 2.1 H Glucose 260 H POC Glucose Lactic Acid 4.30 H* Calcium 8.3 L Ferritin AST Alkaline Phosphatase Magnesium Lactate Dehydrogenase Total Creatine Kinase CK-MB (CK-2) C-Reactive Protein Total Protein Albumin Troponin T HDL Cholesterol Arterial Blood Glucose Urine WBC (Auto) Urine Creatinine Urine Total Protein Phenytoin Coronavirus (PCR) Crossmatch 06/26/20 06/27/20 06/27/20 18:50 01:00 04:29 WBC RBC Hgb Hct MCHC RDW Lymph % (Auto) Evans % (Auto) Eos % (Auto) Lymph # Evans # Lymph # (Auto) Evans # (Auto) Eos # (Auto) Seg Neutrophils % Seg Neuts % (Manual) Lymphocytes % (Manual) Seg Neutrophils # Seg Neutrophils # Man Lymphocytes # (Manual) Monocytes % (Manual) Eosinophils % (Manual) Monocytes # (Manual) Eosinophils # (Manual) D-Dimer Heparin Anti-Xa Level ABG pH 7.296 L POC ABG pCO2 POC ABG pO2 ABG pO2 116.5 H 200.5 H ABG HCO3 28.4 H ABG O2 Saturation 99.3 H ABG Base Excess 3.7 H ABG Hemoglobin 5.6 L ABG Oxyhemoglobin VBG pH ABG Sodium ABG Potassium ABG Glucose Oxyhemoglobin Sodium Potassium Chloride Carbon Dioxide BUN Creatinine Glucose POC Glucose 123 H Lactic Acid Calcium Ferritin AST Alkaline Phosphatase Magnesium Lactate Dehydrogenase Total Creatine Kinase CK-MB (CK-2) C-Reactive Protein Total Protein Albumin Troponin T HDL Cholesterol Arterial Blood Glucose Urine WBC (Auto) Urine Creatinine Urine Total Protein Phenytoin Coronavirus (PCR) Crossmatch 06/27/20 06/27/20 06/27/20 05:00 05:00 05:00 WBC RBC 2.75 L Hgb 7.9 L Hct 24.3 L MCHC RDW 17.1 H Lymph % (Auto) 8.5 L Evans % (Auto) 12.6 H Eos % (Auto) Lymph # 0.7 L Evans # 1.0 H Lymph # (Auto) Evans # (Auto) Eos # (Auto) Seg Neutrophils % 77.5 H Seg Neuts % (Manual) Lymphocytes % (Manual) Seg Neutrophils # Seg Neutrophils # Man Lymphocytes # (Manual) Monocytes % (Manual) Eosinophils % (Manual) Monocytes # (Manual) Eosinophils # (Manual) D-Dimer Heparin Anti-Xa Level ABG pH POC ABG pCO2 POC ABG pO2 ABG pO2 ABG HCO3 ABG O2 Saturation ABG Base Excess ABG Hemoglobin ABG Oxyhemoglobin VBG pH ABG Sodium ABG Potassium ABG Glucose Oxyhemoglobin Sodium Potassium Chloride Carbon Dioxide BUN 80 H Creatinine 2.0 H Glucose 129 H POC Glucose Lactic Acid 0.60 L Calcium 7.9 L Ferritin AST Alkaline Phosphatase Magnesium Lactate Dehydrogenase Total Creatine Kinase CK-MB (CK-2) C-Reactive Protein Total Protein Albumin Troponin T HDL Cholesterol Arterial Blood Glucose Urine WBC (Auto) Urine Creatinine Urine Total Protein Phenytoin Coronavirus (PCR) Crossmatch 06/27/20 06/27/20 06/27/20 05:23 13:46 17:25 WBC RBC Hgb Hct MCHC RDW Lymph % (Auto) Evans % (Auto) Eos % (Auto) Lymph # Evans # Lymph # (Auto) Evans # (Auto) Eos # (Auto) Seg Neutrophils % Seg Neuts % (Manual) Lymphocytes % (Manual) Seg Neutrophils # Seg Neutrophils # Man Lymphocytes # (Manual) Monocytes % (Manual) Eosinophils % (Manual) Monocytes # (Manual) Eosinophils # (Manual) D-Dimer Heparin Anti-Xa Level ABG pH POC ABG pCO2 POC ABG pO2 ABG pO2 ABG HCO3 ABG O2 Saturation ABG Base Excess ABG Hemoglobin ABG Oxyhemoglobin VBG pH ABG Sodium ABG Potassium ABG Glucose Oxyhemoglobin Sodium Potassium Chloride Carbon Dioxide BUN Creatinine Glucose POC Glucose 109 H 158 H 162 H Lactic Acid Calcium Ferritin AST Alkaline Phosphatase Magnesium Lactate Dehydrogenase Total Creatine Kinase CK-MB (CK-2) C-Reactive Protein Total Protein Albumin Troponin T HDL Cholesterol Arterial Blood Glucose Urine WBC (Auto) Urine Creatinine Urine Total Protein Phenytoin Coronavirus (PCR) Crossmatch 06/27/20 06/27/20 06/28/20 18:43 23:46 04:05 WBC RBC Hgb 7.7 L Hct 22.1 L MCHC RDW Lymph % (Auto) Evans % (Auto) Eos % (Auto) Lymph # Evans # Lymph # (Auto) Evans # (Auto) Eos # (Auto) Seg Neutrophils % Seg Neuts % (Manual) Lymphocytes % (Manual) Seg Neutrophils # Seg Neutrophils # Man Lymphocytes # (Manual) Monocytes % (Manual) Eosinophils % (Manual) Monocytes # (Manual) Eosinophils # (Manual) D-Dimer Heparin Anti-Xa Level ABG pH POC ABG pCO2 POC ABG pO2 ABG pO2 102.7 H ABG HCO3 28.7 H ABG O2 Saturation ABG Base Excess 3.7 H ABG Hemoglobin ABG Oxyhemoglobin VBG pH ABG Sodium ABG Potassium ABG Glucose Oxyhemoglobin Sodium Potassium Chloride Carbon Dioxide BUN Creatinine Glucose POC Glucose 142 H Lactic Acid Calcium Ferritin AST Alkaline Phosphatase Magnesium Lactate Dehydrogenase Total Creatine Kinase CK-MB (CK-2) C-Reactive Protein Total Protein Albumin Troponin T HDL Cholesterol Arterial Blood Glucose Urine WBC (Auto) Urine Creatinine Urine Total Protein Phenytoin Coronavirus (PCR) Crossmatch 06/28/20 06/28/20 06/28/20 09:47 09:47 12:02 WBC RBC 2.53 L Hgb 7.4 L Hct 22.2 L MCHC RDW 16.8 H Lymph % (Auto) Evans % (Auto) 13.5 H Eos % (Auto) Lymph # 1.1 L Evans # 1.0 H Lymph # (Auto) Evans # (Auto) Eos # (Auto) Seg Neutrophils % Seg Neuts % (Manual) Lymphocytes % (Manual) Seg Neutrophils # Seg Neutrophils # Man Lymphocytes # (Manual) Monocytes % (Manual) Eosinophils % (Manual) Monocytes # (Manual) Eosinophils # (Manual) D-Dimer Heparin Anti-Xa Level ABG pH POC ABG pCO2 POC ABG pO2 ABG pO2 ABG HCO3 ABG O2 Saturation ABG Base Excess ABG Hemoglobin ABG Oxyhemoglobin VBG pH ABG Sodium ABG Potassium ABG Glucose Oxyhemoglobin Sodium Potassium Chloride Carbon Dioxide BUN 80 H Creatinine 1.5 H Glucose 139 H POC Glucose 169 H Lactic Acid Calcium 7.9 L Ferritin AST Alkaline Phosphatase Magnesium Lactate Dehydrogenase Total Creatine Kinase CK-MB (CK-2) C-Reactive Protein Total Protein 5.0 L Albumin 2.1 L Troponin T HDL Cholesterol Arterial Blood Glucose Urine WBC (Auto) Urine Creatinine Urine Total Protein Phenytoin Coronavirus (PCR) Crossmatch 06/28/20 06/28/20 06/28/20 12:30 12:30 17:24 WBC RBC 2.38 L Hgb 7.3 L Hct 20.9 L MCHC 35 H RDW 16.7 H Lymph % (Auto) Evans % (Auto) Eos % (Auto) Lymph # Evans # Lymph # (Auto) Evans # (Auto) Eos # (Auto) Seg Neutrophils % Seg Neuts % (Manual) Lymphocytes % (Manual) Seg Neutrophils # Seg Neutrophils # Man Lymphocytes # (Manual) Monocytes % (Manual) Eosinophils % (Manual) Monocytes # (Manual) Eosinophils # (Manual) D-Dimer Heparin Anti-Xa Level ABG pH POC ABG pCO2 POC ABG pO2 ABG pO2 ABG HCO3 ABG O2 Saturation ABG Base Excess ABG Hemoglobin ABG Oxyhemoglobin VBG pH ABG Sodium ABG Potassium ABG Glucose Oxyhemoglobin Sodium Potassium Chloride Carbon Dioxide BUN 74 H Creatinine 1.5 H Glucose 143 H POC Glucose 173 H Lactic Acid Calcium 7.5 L Ferritin AST Alkaline Phosphatase Magnesium Lactate Dehydrogenase Total Creatine Kinase CK-MB (CK-2) C-Reactive Protein Total Protein Albumin Troponin T HDL Cholesterol Arterial Blood Glucose Urine WBC (Auto) Urine Creatinine Urine Total Protein Phenytoin Coronavirus (PCR) Crossmatch 06/29/20 06/29/20 06/29/20 00:02 03:54 04:38 WBC RBC 2.55 L Hgb 7.3 L Hct 22.4 L MCHC RDW 16.4 H Lymph % (Auto) 13.3 L Evans % (Auto) 12.5 H Eos % (Auto) Lymph # 1.1 L Evans # 1.0 H Lymph # (Auto) Evans # (Auto) Eos # (Auto) Seg Neutrophils % Seg Neuts % (Manual) Lymphocytes % (Manual) Seg Neutrophils # Seg Neutrophils # Man Lymphocytes # (Manual) Monocytes % (Manual) Eosinophils % (Manual) Monocytes # (Manual) Eosinophils # (Manual) D-Dimer Heparin Anti-Xa Level ABG pH POC ABG pCO2 POC ABG pO2 ABG pO2 ABG HCO3 26.9 H ABG O2 Saturation ABG Base Excess ABG Hemoglobin 6.9 L ABG Oxyhemoglobin VBG pH ABG Sodium ABG Potassium ABG Glucose Oxyhemoglobin Sodium Potassium Chloride Carbon Dioxide BUN Creatinine Glucose POC Glucose 142 H Lactic Acid Calcium Ferritin AST Alkaline Phosphatase Magnesium Lactate Dehydrogenase Total Creatine Kinase CK-MB (CK-2) C-Reactive Protein Total Protein Albumin Troponin T HDL Cholesterol Arterial Blood Glucose Urine WBC (Auto) Urine Creatinine Urine Total Protein Phenytoin Coronavirus (PCR) Crossmatch 06/29/20 06/29/20 06/29/20 04:38 05:38 12:25 WBC RBC Hgb Hct MCHC RDW Lymph % (Auto) Evans % (Auto) Eos % (Auto) Lymph # Evans # Lymph # (Auto) Evans # (Auto) Eos # (Auto) Seg Neutrophils % Seg Neuts % (Manual) Lymphocytes % (Manual) Seg Neutrophils # Seg Neutrophils # Man Lymphocytes # (Manual) Monocytes % (Manual) Eosinophils % (Manual) Monocytes # (Manual) Eosinophils # (Manual) D-Dimer Heparin Anti-Xa Level ABG pH POC ABG pCO2 POC ABG pO2 ABG pO2 ABG HCO3 ABG O2 Saturation ABG Base Excess ABG Hemoglobin ABG Oxyhemoglobin VBG pH ABG Sodium ABG Potassium ABG Glucose Oxyhemoglobin Sodium Potassium Chloride 107.8 H Carbon Dioxide BUN 72 H Creatinine 1.4 H Glucose 127 H POC Glucose 122 H 138 H Lactic Acid Calcium 7.4 L Ferritin AST Alkaline Phosphatase Magnesium Lactate Dehydrogenase Total Creatine Kinase CK-MB (CK-2) C-Reactive Protein Total Protein Albumin Troponin T HDL Cholesterol Arterial Blood Glucose Urine WBC (Auto) Urine Creatinine Urine Total Protein Phenytoin Coronavirus (PCR) Crossmatch 06/29/20 06/29/20 06/29/20 14:45 14:45 14:45 WBC RBC Hgb Hct MCHC RDW Lymph % (Auto) Evans % (Auto) Eos % (Auto) Lymph # Evans # Lymph # (Auto) Evans # (Auto) Eos # (Auto) Seg Neutrophils % Seg Neuts % (Manual) Lymphocytes % (Manual) Seg Neutrophils # Seg Neutrophils # Man Lymphocytes # (Manual) Monocytes % (Manual) Eosinophils % (Manual) Monocytes # (Manual) Eosinophils # (Manual) D-Dimer 2310.15 H Heparin Anti-Xa Level ABG pH POC ABG pCO2 POC ABG pO2 ABG pO2 ABG HCO3 ABG O2 Saturation ABG Base Excess ABG Hemoglobin ABG Oxyhemoglobin VBG pH ABG Sodium ABG Potassium ABG Glucose Oxyhemoglobin Sodium Potassium Chloride Carbon Dioxide BUN Creatinine Glucose POC Glucose Lactic Acid Calcium Ferritin 223.6 H AST Alkaline Phosphatase Magnesium Lactate Dehydrogenase 367 H Total Creatine Kinase CK-MB (CK-2) C-Reactive Protein 3.60 H Total Protein Albumin Troponin T HDL Cholesterol Arterial Blood Glucose Urine WBC (Auto) Urine Creatinine Urine Total Protein Phenytoin Coronavirus (PCR) Crossmatch 06/29/20 06/29/20 06/29/20 18:27 23:35 Unknown WBC RBC Hgb Hct MCHC RDW Lymph % (Auto) Evans % (Auto) Eos % (Auto) Lymph # Evans # Lymph # (Auto) Evans # (Auto) Eos # (Auto) Seg Neutrophils % Seg Neuts % (Manual) Lymphocytes % (Manual) Seg Neutrophils # Seg Neutrophils # Man Lymphocytes # (Manual) Monocytes % (Manual) Eosinophils % (Manual) Monocytes # (Manual) Eosinophils # (Manual) D-Dimer Heparin Anti-Xa Level ABG pH POC ABG pCO2 POC ABG pO2 ABG pO2 ABG HCO3 ABG O2 Saturation ABG Base Excess ABG Hemoglobin ABG Oxyhemoglobin VBG pH ABG Sodium ABG Potassium ABG Glucose Oxyhemoglobin Sodium Potassium Chloride Carbon Dioxide BUN Creatinine Glucose POC Glucose 112 H 140 H Lactic Acid Calcium Ferritin AST Alkaline Phosphatase Magnesium Lactate Dehydrogenase Total Creatine Kinase CK-MB (CK-2) C-Reactive Protein Total Protein Albumin Troponin T HDL Cholesterol Arterial Blood Glucose Urine WBC (Auto) Urine Creatinine Urine Total Protein Phenytoin Coronavirus (PCR) Positive A Crossmatch 06/30/20 06/30/20 06/30/20 04:10 04:10 06:09 WBC RBC 2.44 L Hgb 7.1 L Hct 21.5 L MCHC RDW 16.6 H Lymph % (Auto) 11.0 L Evans % (Auto) 10.8 H Eos % (Auto) Lymph # 0.9 L Evans # 0.9 H Lymph # (Auto) Evans # (Auto) Eos # (Auto) Seg Neutrophils % 73.7 H Seg Neuts % (Manual) Lymphocytes % (Manual) Seg Neutrophils # Seg Neutrophils # Man Lymphocytes # (Manual) Monocytes % (Manual) Eosinophils % (Manual) Monocytes # (Manual) Eosinophils # (Manual) D-Dimer Heparin Anti-Xa Level ABG pH POC ABG pCO2 POC ABG pO2 ABG pO2 ABG HCO3 ABG O2 Saturation ABG Base Excess ABG Hemoglobin ABG Oxyhemoglobin VBG pH ABG Sodium ABG Potassium ABG Glucose Oxyhemoglobin Sodium Potassium Chloride 109.1 H Carbon Dioxide BUN 74 H Creatinine 1.3 H Glucose 191 H POC Glucose 187 H Lactic Acid Calcium 7.8 L Ferritin AST Alkaline Phosphatase Magnesium Lactate Dehydrogenase Total Creatine Kinase CK-MB (CK-2) C-Reactive Protein Total Protein Albumin Troponin T HDL Cholesterol Arterial Blood Glucose Urine WBC (Auto) Urine Creatinine Urine Total Protein Phenytoin Coronavirus (PCR) Crossmatch 06/30/20 06/30/20 06/30/20 12:04 17:43 23:41 WBC RBC Hgb Hct MCHC RDW Lymph % (Auto) Evans % (Auto) Eos % (Auto) Lymph # Evans # Lymph # (Auto) Evans # (Auto) Eos # (Auto) Seg Neutrophils % Seg Neuts % (Manual) Lymphocytes % (Manual) Seg Neutrophils # Seg Neutrophils # Man Lymphocytes # (Manual) Monocytes % (Manual) Eosinophils % (Manual) Monocytes # (Manual) Eosinophils # (Manual) D-Dimer Heparin Anti-Xa Level ABG pH POC ABG pCO2 POC ABG pO2 ABG pO2 ABG HCO3 ABG O2 Saturation ABG Base Excess ABG Hemoglobin ABG Oxyhemoglobin VBG pH ABG Sodium ABG Potassium ABG Glucose Oxyhemoglobin Sodium Potassium Chloride Carbon Dioxide BUN Creatinine Glucose POC Glucose 112 H 177 H 143 H Lactic Acid Calcium Ferritin AST Alkaline Phosphatase Magnesium Lactate Dehydrogenase Total Creatine Kinase CK-MB (CK-2) C-Reactive Protein Total Protein Albumin Troponin T HDL Cholesterol Arterial Blood Glucose Urine WBC (Auto) Urine Creatinine Urine Total Protein Phenytoin Coronavirus (PCR) Crossmatch 07/01/20 07/01/20 07/01/20 05:02 05:52 06:01 WBC 12.6 H RBC 2.95 L Hgb 8.2 L Hct 26.0 L MCHC RDW 16.9 H Lymph % (Auto) Evans % (Auto) Eos % (Auto) Lymph # Evans # Lymph # (Auto) Evans # (Auto) Eos # (Auto) Seg Neutrophils % Seg Neuts % (Manual) Lymphocytes % (Manual) Seg Neutrophils # Seg Neutrophils # Man 8.6 H Lymphocytes # (Manual) Monocytes % (Manual) Eosinophils % (Manual) 5.0 H Monocytes # (Manual) Eosinophils # (Manual) 0.6 H D-Dimer Heparin Anti-Xa Level ABG pH POC ABG pCO2 POC ABG pO2 ABG pO2 ABG HCO3 ABG O2 Saturation ABG Base Excess ABG Hemoglobin 8.2 L ABG Oxyhemoglobin VBG pH ABG Sodium ABG Potassium ABG Glucose Oxyhemoglobin Sodium Potassium Chloride Carbon Dioxide BUN Creatinine Glucose POC Glucose 129 H Lactic Acid Calcium Ferritin AST Alkaline Phosphatase Magnesium Lactate Dehydrogenase Total Creatine Kinase CK-MB (CK-2) C-Reactive Protein Total Protein Albumin Troponin T HDL Cholesterol Arterial Blood Glucose Urine WBC (Auto) Urine Creatinine Urine Total Protein Phenytoin Coronavirus (PCR) Crossmatch 07/01/20 07/01/20 07/01/20 06:01 06:01 06:08 WBC RBC Hgb Hct MCHC RDW Lymph % (Auto) Evans % (Auto) Eos % (Auto) Lymph # Evans # Lymph # (Auto) Evans # (Auto) Eos # (Auto) Seg Neutrophils % Seg Neuts % (Manual) Lymphocytes % (Manual) Seg Neutrophils # Seg Neutrophils # Man Lymphocytes # (Manual) Monocytes % (Manual) Eosinophils % (Manual) Monocytes # (Manual) Eosinophils # (Manual) D-Dimer Heparin Anti-Xa Level ABG pH POC ABG pCO2 POC ABG pO2 ABG pO2 ABG HCO3 ABG O2 Saturation ABG Base Excess ABG Hemoglobin ABG Oxyhemoglobin VBG pH ABG Sodium ABG Potassium ABG Glucose Oxyhemoglobin Sodium 147 H Potassium Chloride 108.0 H Carbon Dioxide BUN 71 H Creatinine 1.3 H Glucose 193 H POC Glucose 192 H Lactic Acid Calcium 8.1 L Ferritin AST Alkaline Phosphatase Magnesium Lactate Dehydrogenase Total Creatine Kinase 300 H CK-MB (CK-2) C-Reactive Protein Total Protein Albumin Troponin T 0.067 H HDL Cholesterol 61 H Arterial Blood Glucose Urine WBC (Auto) Urine Creatinine Urine Total Protein Phenytoin Coronavirus (PCR) Crossmatch 07/01/20 07/01/20 07/02/20 12:23 17:40 00:18 WBC RBC Hgb Hct MCHC RDW Lymph % (Auto) Evans % (Auto) Eos % (Auto) Lymph # Evans # Lymph # (Auto) Evans # (Auto) Eos # (Auto) Seg Neutrophils % Seg Neuts % (Manual) Lymphocytes % (Manual) Seg Neutrophils # Seg Neutrophils # Man Lymphocytes # (Manual) Monocytes % (Manual) Eosinophils % (Manual) Monocytes # (Manual) Eosinophils # (Manual) D-Dimer Heparin Anti-Xa Level ABG pH POC ABG pCO2 POC ABG pO2 ABG pO2 ABG HCO3 ABG O2 Saturation ABG Base Excess ABG Hemoglobin ABG Oxyhemoglobin VBG pH ABG Sodium ABG Potassium ABG Glucose Oxyhemoglobin Sodium Potassium Chloride Carbon Dioxide BUN Creatinine Glucose POC Glucose 111 H 135 H 145 H Lactic Acid Calcium Ferritin AST Alkaline Phosphatase Magnesium Lactate Dehydrogenase Total Creatine Kinase CK-MB (CK-2) C-Reactive Protein Total Protein Albumin Troponin T HDL Cholesterol Arterial Blood Glucose Urine WBC (Auto) Urine Creatinine Urine Total Protein Phenytoin Coronavirus (PCR) Crossmatch 07/02/20 07/02/20 07/02/20 04:11 04:23 05:54 WBC RBC Hgb Hct MCHC RDW Lymph % (Auto) Evans % (Auto) Eos % (Auto) Lymph # Evans # Lymph # (Auto) Evans # (Auto) Eos # (Auto) Seg Neutrophils % Seg Neuts % (Manual) Lymphocytes % (Manual) Seg Neutrophils # Seg Neutrophils # Man Lymphocytes # (Manual) Monocytes % (Manual) Eosinophils % (Manual) Monocytes # (Manual) Eosinophils # (Manual) D-Dimer Heparin Anti-Xa Level ABG pH POC ABG pCO2 POC ABG pO2 ABG pO2 ABG HCO3 ABG O2 Saturation ABG Base Excess ABG Hemoglobin 5.4 L ABG Oxyhemoglobin VBG pH ABG Sodium ABG Potassium ABG Glucose Oxyhemoglobin Sodium Potassium Chloride 108.6 H Carbon Dioxide BUN 72 H Creatinine Glucose 112 H POC Glucose 137 H Lactic Acid Calcium 7.8 L Ferritin AST Alkaline Phosphatase Magnesium Lactate Dehydrogenase Total Creatine Kinase CK-MB (CK-2) C-Reactive Protein Total Protein Albumin Troponin T HDL Cholesterol Arterial Blood Glucose Urine WBC (Auto) Urine Creatinine Urine Total Protein Phenytoin Coronavirus (PCR) Crossmatch 07/02/20 07/02/20 07/02/20 11:38 18:04 23:59 WBC RBC Hgb Hct MCHC RDW Lymph % (Auto) Evans % (Auto) Eos % (Auto) Lymph # Evans # Lymph # (Auto) Evans # (Auto) Eos # (Auto) Seg Neutrophils % Seg Neuts % (Manual) Lymphocytes % (Manual) Seg Neutrophils # Seg Neutrophils # Man Lymphocytes # (Manual) Monocytes % (Manual) Eosinophils % (Manual) Monocytes # (Manual) Eosinophils # (Manual) D-Dimer Heparin Anti-Xa Level ABG pH POC ABG pCO2 POC ABG pO2 ABG pO2 ABG HCO3 ABG O2 Saturation ABG Base Excess ABG Hemoglobin ABG Oxyhemoglobin VBG pH ABG Sodium ABG Potassium ABG Glucose Oxyhemoglobin Sodium Potassium Chloride Carbon Dioxide BUN Creatinine Glucose POC Glucose 128 H 135 H 156 H Lactic Acid Calcium Ferritin AST Alkaline Phosphatase Magnesium Lactate Dehydrogenase Total Creatine Kinase CK-MB (CK-2) C-Reactive Protein Total Protein Albumin Troponin T HDL Cholesterol Arterial Blood Glucose Urine WBC (Auto) Urine Creatinine Urine Total Protein Phenytoin Coronavirus (PCR) Crossmatch 07/03/20 07/03/20 07/03/20 03:49 06:00 11:31 WBC RBC Hgb Hct MCHC RDW Lymph % (Auto) Evans % (Auto) Eos % (Auto) Lymph # Evans # Lymph # (Auto) Evans # (Auto) Eos # (Auto) Seg Neutrophils % Seg Neuts % (Manual) Lymphocytes % (Manual) Seg Neutrophils # Seg Neutrophils # Man Lymphocytes # (Manual) Monocytes % (Manual) Eosinophils % (Manual) Monocytes # (Manual) Eosinophils # (Manual) D-Dimer Heparin Anti-Xa Level ABG pH POC ABG pCO2 POC ABG pO2 ABG pO2 121.0 H ABG HCO3 ABG O2 Saturation ABG Base Excess ABG Hemoglobin 8.5 L ABG Oxyhemoglobin VBG pH ABG Sodium ABG Potassium ABG Glucose Oxyhemoglobin Sodium Potassium Chloride Carbon Dioxide BUN Creatinine Glucose POC Glucose 135 H 141 H Lactic Acid Calcium Ferritin AST Alkaline Phosphatase Magnesium Lactate Dehydrogenase Total Creatine Kinase CK-MB (CK-2) C-Reactive Protein Total Protein Albumin Troponin T HDL Cholesterol Arterial Blood Glucose Urine WBC (Auto) Urine Creatinine Urine Total Protein Phenytoin Coronavirus (PCR) Crossmatch 07/03/20 07/03/20 07/03/20 16:00 16:07 17:40 WBC RBC Hgb Hct MCHC RDW Lymph % (Auto) Evans % (Auto) Eos % (Auto) Lymph # Evans # Lymph # (Auto) Evans # (Auto) Eos # (Auto) Seg Neutrophils % Seg Neuts % (Manual) Lymphocytes % (Manual) Seg Neutrophils # Seg Neutrophils # Man Lymphocytes # (Manual) Monocytes % (Manual) Eosinophils % (Manual) Monocytes # (Manual) Eosinophils # (Manual) D-Dimer Heparin Anti-Xa Level ABG pH 7.271 L POC ABG pCO2 POC ABG pO2 ABG pO2 126.9 H ABG HCO3 ABG O2 Saturation ABG Base Excess ABG Hemoglobin 8.2 L 8.1 L ABG Oxyhemoglobin VBG pH ABG Sodium 130.3 L ABG Potassium 4.9 H ABG Glucose 163 H Oxyhemoglobin Sodium Potassium Chloride Carbon Dioxide BUN Creatinine Glucose POC Glucose 120 H Lactic Acid Calcium Ferritin AST Alkaline Phosphatase Magnesium Lactate Dehydrogenase Total Creatine Kinase CK-MB (CK-2) C-Reactive Protein Total Protein Albumin Troponin T HDL Cholesterol Arterial Blood Glucose 163 H Urine WBC (Auto) Urine Creatinine Urine Total Protein Phenytoin Coronavirus (PCR) Crossmatch 07/04/20 07/04/20 07/04/20 05:49 11:54 18:00 WBC RBC Hgb Hct MCHC RDW Lymph % (Auto) Evans % (Auto) Eos % (Auto) Lymph # Evans # Lymph # (Auto) Evans # (Auto) Eos # (Auto) Seg Neutrophils % Seg Neuts % (Manual) Lymphocytes % (Manual) Seg Neutrophils # Seg Neutrophils # Man Lymphocytes # (Manual) Monocytes % (Manual) Eosinophils % (Manual) Monocytes # (Manual) Eosinophils # (Manual) D-Dimer Heparin Anti-Xa Level ABG pH POC ABG pCO2 POC ABG pO2 ABG pO2 ABG HCO3 ABG O2 Saturation ABG Base Excess ABG Hemoglobin ABG Oxyhemoglobin VBG pH ABG Sodium ABG Potassium ABG Glucose Oxyhemoglobin Sodium Potassium Chloride Carbon Dioxide BUN Creatinine Glucose POC Glucose 128 H 168 H 133 H Lactic Acid Calcium Ferritin AST Alkaline Phosphatase Magnesium Lactate Dehydrogenase Total Creatine Kinase CK-MB (CK-2) C-Reactive Protein Total Protein Albumin Troponin T HDL Cholesterol Arterial Blood Glucose Urine WBC (Auto) Urine Creatinine Urine Total Protein Phenytoin Coronavirus (PCR) Crossmatch 07/05/20 07/05/20 07/05/20 00:07 01:12 02:30 WBC RBC 2.35 L Hgb 6.9 L Hct 21.1 L MCHC RDW 16.8 H Lymph % (Auto) Evans % (Auto) Eos % (Auto) Lymph # Evans # Lymph # (Auto) Evans # (Auto) Eos # (Auto) Seg Neutrophils % Seg Neuts % (Manual) 74.0 H Lymphocytes % (Manual) 12.0 L Seg Neutrophils # Seg Neutrophils # Man 8.0 H Lymphocytes # (Manual) Monocytes % (Manual) 9.0 H Eosinophils % (Manual) Monocytes # (Manual) 1.0 H Eosinophils # (Manual) D-Dimer Heparin Anti-Xa Level ABG pH POC ABG pCO2 POC ABG pO2 ABG pO2 ABG HCO3 ABG O2 Saturation ABG Base Excess ABG Hemoglobin ABG Oxyhemoglobin VBG pH ABG Sodium ABG Potassium ABG Glucose Oxyhemoglobin Sodium Potassium Chloride Carbon Dioxide BUN Creatinine Glucose POC Glucose 121 H Lactic Acid Calcium Ferritin AST Alkaline Phosphatase Magnesium Lactate Dehydrogenase Total Creatine Kinase CK-MB (CK-2) C-Reactive Protein Total Protein Albumin Troponin T HDL Cholesterol Arterial Blood Glucose Urine WBC (Auto) Urine Creatinine Urine Total Protein Phenytoin Coronavirus (PCR) Crossmatch See Detail 07/05/20 07/05/20 07/05/20 12:09 13:05 18:04 WBC RBC Hgb Hct MCHC RDW Lymph % (Auto) Evans % (Auto) Eos % (Auto) Lymph # Evans # Lymph # (Auto) Evans # (Auto) Eos # (Auto) Seg Neutrophils % Seg Neuts % (Manual) Lymphocytes % (Manual) Seg Neutrophils # Seg Neutrophils # Man Lymphocytes # (Manual) Monocytes % (Manual) Eosinophils % (Manual) Monocytes # (Manual) Eosinophils # (Manual) D-Dimer Heparin Anti-Xa Level ABG pH 7.32 L POC ABG pCO2 POC ABG pO2 ABG pO2 78.3 L ABG HCO3 ABG O2 Saturation ABG Base Excess -2.6 L ABG Hemoglobin 7.3 L ABG Oxyhemoglobin VBG pH ABG Sodium ABG Potassium ABG Glucose Oxyhemoglobin Sodium Potassium Chloride Carbon Dioxide BUN Creatinine Glucose POC Glucose 132 H 160 H Lactic Acid Calcium Ferritin AST Alkaline Phosphatase Magnesium Lactate Dehydrogenase Total Creatine Kinase CK-MB (CK-2) C-Reactive Protein Total Protein Albumin Troponin T HDL Cholesterol Arterial Blood Glucose Urine WBC (Auto) Urine Creatinine Urine Total Protein Phenytoin Coronavirus (PCR) Crossmatch 07/05/20 07/05/20 07/05/20 23:13 23:13 23:43 WBC RBC 2.57 L Hgb 7.7 L Hct 23.0 L MCHC RDW 16.9 H Lymph % (Auto) Evans % (Auto) Eos % (Auto) Lymph # Evans # Lymph # (Auto) Evans # (Auto) Eos # (Auto) Seg Neutrophils % Seg Neuts % (Manual) Lymphocytes % (Manual) Seg Neutrophils # Seg Neutrophils # Man Lymphocytes # (Manual) Monocytes % (Manual) Eosinophils % (Manual) Monocytes # (Manual) Eosinophils # (Manual) D-Dimer Heparin Anti-Xa Level ABG pH POC ABG pCO2 POC ABG pO2 ABG pO2 ABG HCO3 ABG O2 Saturation ABG Base Excess ABG Hemoglobin ABG Oxyhemoglobin VBG pH ABG Sodium ABG Potassium ABG Glucose Oxyhemoglobin Sodium Potassium Chloride Carbon Dioxide 20 L BUN 80 H Creatinine 2.4 H D Glucose 124 H POC Glucose 121 H Lactic Acid Calcium 7.6 L Ferritin AST Alkaline Phosphatase Magnesium Lactate Dehydrogenase Total Creatine Kinase CK-MB (CK-2) C-Reactive Protein Total Protein Albumin Troponin T HDL Cholesterol Arterial Blood Glucose Urine WBC (Auto) Urine Creatinine Urine Total Protein Phenytoin Coronavirus (PCR) Crossmatch 07/06/20 07/06/20 07/06/20 13:20 14:48 17:28 WBC RBC Hgb Hct MCHC RDW Lymph % (Auto) Evans % (Auto) Eos % (Auto) Lymph # Evans # Lymph # (Auto) Evans # (Auto) Eos # (Auto) Seg Neutrophils % Seg Neuts % (Manual) Lymphocytes % (Manual) Seg Neutrophils # Seg Neutrophils # Man Lymphocytes # (Manual) Monocytes % (Manual) Eosinophils % (Manual) Monocytes # (Manual) Eosinophils # (Manual) D-Dimer Heparin Anti-Xa Level ABG pH POC ABG pCO2 POC ABG pO2 ABG pO2 ABG HCO3 ABG O2 Saturation ABG Base Excess ABG Hemoglobin ABG Oxyhemoglobin VBG pH ABG Sodium ABG Potassium ABG Glucose Oxyhemoglobin Sodium 136 L Potassium 5.5 H Chloride Carbon Dioxide 19 L BUN 82 H Creatinine 2.5 H Glucose 113 H POC Glucose 133 H Lactic Acid Calcium 7.7 L Ferritin AST Alkaline Phosphatase Magnesium Lactate Dehydrogenase Total Creatine Kinase CK-MB (CK-2) C-Reactive Protein Total Protein Albumin Troponin T HDL Cholesterol Arterial Blood Glucose Urine WBC (Auto) Urine Creatinine 33.3 H Urine Total Protein Phenytoin Coronavirus (PCR) Crossmatch 07/07/20 07/07/20 07/07/20 00:12 04:15 04:15 WBC RBC 2.28 L Hgb 6.8 L Hct 20.7 L MCHC RDW 16.8 H Lymph % (Auto) Evans % (Auto) Eos % (Auto) Lymph # Evans # Lymph # (Auto) Evans # (Auto) Eos # (Auto) Seg Neutrophils % Seg Neuts % (Manual) Lymphocytes % (Manual) 13.0 L Seg Neutrophils # Seg Neutrophils # Man Lymphocytes # (Manual) 1.0 L Monocytes % (Manual) 11.0 H Eosinophils % (Manual) Monocytes # (Manual) 0.9 H Eosinophils # (Manual) D-Dimer Heparin Anti-Xa Level ABG pH POC ABG pCO2 POC ABG pO2 ABG pO2 ABG HCO3 ABG O2 Saturation ABG Base Excess ABG Hemoglobin ABG Oxyhemoglobin VBG pH ABG Sodium ABG Potassium ABG Glucose Oxyhemoglobin Sodium Potassium Chloride Carbon Dioxide BUN Creatinine Glucose POC Glucose 154 H Lactic Acid Calcium Ferritin AST Alkaline Phosphatase Magnesium 2.50 H Lactate Dehydrogenase Total Creatine Kinase CK-MB (CK-2) C-Reactive Protein Total Protein Albumin Troponin T HDL Cholesterol Arterial Blood Glucose Urine WBC (Auto) Urine Creatinine Urine Total Protein Phenytoin Coronavirus (PCR) Crossmatch 07/07/20 07/07/20 07/07/20 05:31 12:31 13:22 WBC RBC Hgb Hct MCHC RDW Lymph % (Auto) Evans % (Auto) Eos % (Auto) Lymph # Evans # Lymph # (Auto) Evans # (Auto) Eos # (Auto) Seg Neutrophils % Seg Neuts % (Manual) Lymphocytes % (Manual) Seg Neutrophils # Seg Neutrophils # Man Lymphocytes # (Manual) Monocytes % (Manual) Eosinophils % (Manual) Monocytes # (Manual) Eosinophils # (Manual) D-Dimer Heparin Anti-Xa Level ABG pH POC ABG pCO2 POC ABG pO2 ABG pO2 ABG HCO3 ABG O2 Saturation ABG Base Excess ABG Hemoglobin ABG Oxyhemoglobin VBG pH ABG Sodium ABG Potassium ABG Glucose Oxyhemoglobin Sodium Potassium 5.6 H Chloride Carbon Dioxide BUN 86 H Creatinine 2.9 H Glucose 127 H POC Glucose 135 H 131 H Lactic Acid Calcium 8.1 L Ferritin AST Alkaline Phosphatase Magnesium Lactate Dehydrogenase Total Creatine Kinase CK-MB (CK-2) C-Reactive Protein Total Protein Albumin Troponin T HDL Cholesterol Arterial Blood Glucose Urine WBC (Auto) Urine Creatinine Urine Total Protein Phenytoin Coronavirus (PCR) Crossmatch 07/07/20 07/07/20 07/08/20 17:55 23:33 04:14 WBC RBC 3.28 L Hgb 9.7 L Hct 28.9 L D MCHC RDW 16.4 H Lymph % (Auto) 10.3 L Evans % (Auto) 10.0 H Eos % (Auto) Lymph # Evans # Lymph # (Auto) 1.1 L Evans # (Auto) 1.1 H Eos # (Auto) Seg Neutrophils % 77.2 H Seg Neuts % (Manual) Lymphocytes % (Manual) Seg Neutrophils # 8.2 H Seg Neutrophils # Man Lymphocytes # (Manual) Monocytes % (Manual) Eosinophils % (Manual) Monocytes # (Manual) Eosinophils # (Manual) D-Dimer Heparin Anti-Xa Level ABG pH POC ABG pCO2 POC ABG pO2 ABG pO2 ABG HCO3 ABG O2 Saturation ABG Base Excess ABG Hemoglobin ABG Oxyhemoglobin VBG pH ABG Sodium ABG Potassium ABG Glucose Oxyhemoglobin Sodium Potassium Chloride Carbon Dioxide BUN Creatinine Glucose POC Glucose 136 H 159 H Lactic Acid Calcium Ferritin AST Alkaline Phosphatase Magnesium Lactate Dehydrogenase Total Creatine Kinase CK-MB (CK-2) C-Reactive Protein Total Protein Albumin Troponin T HDL Cholesterol Arterial Blood Glucose Urine WBC (Auto) Urine Creatinine Urine Total Protein Phenytoin Coronavirus (PCR) Crossmatch 07/08/20 07/08/20 07/08/20 04:14 12:10 18:10 WBC RBC Hgb Hct MCHC RDW Lymph % (Auto) Evans % (Auto) Eos % (Auto) Lymph # Evans # Lymph # (Auto) Evans # (Auto) Eos # (Auto) Seg Neutrophils % Seg Neuts % (Manual) Lymphocytes % (Manual) Seg Neutrophils # Seg Neutrophils # Man Lymphocytes # (Manual) Monocytes % (Manual) Eosinophils % (Manual) Monocytes # (Manual) Eosinophils # (Manual) D-Dimer Heparin Anti-Xa Level ABG pH POC ABG pCO2 POC ABG pO2 ABG pO2 ABG HCO3 ABG O2 Saturation ABG Base Excess ABG Hemoglobin ABG Oxyhemoglobin VBG pH ABG Sodium ABG Potassium ABG Glucose Oxyhemoglobin Sodium 136 L Potassium Chloride Carbon Dioxide BUN 84 H Creatinine 2.8 H Glucose 109 H POC Glucose 108 H 125 H Lactic Acid Calcium 8.1 L Ferritin AST Alkaline Phosphatase Magnesium 2.50 H Lactate Dehydrogenase Total Creatine Kinase CK-MB (CK-2) C-Reactive Protein Total Protein Albumin Troponin T HDL Cholesterol Arterial Blood Glucose Urine WBC (Auto) Urine Creatinine Urine Total Protein Phenytoin Coronavirus (PCR) Crossmatch 07/08/20 07/09/20 07/09/20 23:50 05:39 11:57 WBC RBC Hgb Hct MCHC RDW Lymph % (Auto) Evans % (Auto) Eos % (Auto) Lymph # Evans # Lymph # (Auto) Evans # (Auto) Eos # (Auto) Seg Neutrophils % Seg Neuts % (Manual) Lymphocytes % (Manual) Seg Neutrophils # Seg Neutrophils # Man Lymphocytes # (Manual) Monocytes % (Manual) Eosinophils % (Manual) Monocytes # (Manual) Eosinophils # (Manual) D-Dimer Heparin Anti-Xa Level ABG pH POC ABG pCO2 POC ABG pO2 ABG pO2 ABG HCO3 ABG O2 Saturation ABG Base Excess ABG Hemoglobin ABG Oxyhemoglobin VBG pH ABG Sodium ABG Potassium ABG Glucose Oxyhemoglobin Sodium Potassium Chloride Carbon Dioxide BUN Creatinine Glucose POC Glucose 141 H 121 H 123 H Lactic Acid Calcium Ferritin AST Alkaline Phosphatase Magnesium Lactate Dehydrogenase Total Creatine Kinase CK-MB (CK-2) C-Reactive Protein Total Protein Albumin Troponin T HDL Cholesterol Arterial Blood Glucose Urine WBC (Auto) Urine Creatinine Urine Total Protein Phenytoin Coronavirus (PCR) Crossmatch 07/09/20 07/10/20 07/10/20 17:56 00:29 05:50 WBC RBC Hgb Hct MCHC RDW Lymph % (Auto) Evans % (Auto) Eos % (Auto) Lymph # Evans # Lymph # (Auto) Evans # (Auto) Eos # (Auto) Seg Neutrophils % Seg Neuts % (Manual) Lymphocytes % (Manual) Seg Neutrophils # Seg Neutrophils # Man Lymphocytes # (Manual) Monocytes % (Manual) Eosinophils % (Manual) Monocytes # (Manual) Eosinophils # (Manual) D-Dimer Heparin Anti-Xa Level ABG pH POC ABG pCO2 POC ABG pO2 ABG pO2 ABG HCO3 ABG O2 Saturation ABG Base Excess ABG Hemoglobin ABG Oxyhemoglobin VBG pH ABG Sodium ABG Potassium ABG Glucose Oxyhemoglobin Sodium Potassium Chloride Carbon Dioxide BUN Creatinine Glucose POC Glucose 119 H 122 H 124 H Lactic Acid Calcium Ferritin AST Alkaline Phosphatase Magnesium Lactate Dehydrogenase Total Creatine Kinase CK-MB (CK-2) C-Reactive Protein Total Protein Albumin Troponin T HDL Cholesterol Arterial Blood Glucose Urine WBC (Auto) Urine Creatinine Urine Total Protein Phenytoin Coronavirus (PCR) Crossmatch 07/10/20 07/10/20 07/10/20 10:41 10:41 12:25 WBC RBC 3.11 L Hgb 9.2 L Hct 27.6 L MCHC RDW 16.6 H Lymph % (Auto) Evans % (Auto) Eos % (Auto) Lymph # Evans # Lymph # (Auto) Evans # (Auto) Eos # (Auto) Seg Neutrophils % Seg Neuts % (Manual) 78.0 H Lymphocytes % (Manual) 11.0 L Seg Neutrophils # Seg Neutrophils # Man Lymphocytes # (Manual) 1.0 L Monocytes % (Manual) Eosinophils % (Manual) Monocytes # (Manual) Eosinophils # (Manual) D-Dimer Heparin Anti-Xa Level ABG pH POC ABG pCO2 POC ABG pO2 ABG pO2 ABG HCO3 ABG O2 Saturation ABG Base Excess ABG Hemoglobin ABG Oxyhemoglobin VBG pH ABG Sodium ABG Potassium ABG Glucose Oxyhemoglobin Sodium Potassium Chloride Carbon Dioxide BUN 85 H Creatinine 2.5 H Glucose 133 H POC Glucose 131 H Lactic Acid Calcium Ferritin AST Alkaline Phosphatase 131 H Magnesium Lactate Dehydrogenase Total Creatine Kinase CK-MB (CK-2) C-Reactive Protein Total Protein 5.2 L Albumin 1.6 L Troponin T HDL Cholesterol Arterial Blood Glucose Urine WBC (Auto) Urine Creatinine Urine Total Protein Phenytoin Coronavirus (PCR) Crossmatch 07/10/20 07/11/20 07/11/20 18:10 00:28 05:57 WBC RBC Hgb Hct MCHC RDW Lymph % (Auto) Evans % (Auto) Eos % (Auto) Lymph # Evans # Lymph # (Auto) Evans # (Auto) Eos # (Auto) Seg Neutrophils % Seg Neuts % (Manual) Lymphocytes % (Manual) Seg Neutrophils # Seg Neutrophils # Man Lymphocytes # (Manual) Monocytes % (Manual) Eosinophils % (Manual) Monocytes # (Manual) Eosinophils # (Manual) D-Dimer Heparin Anti-Xa Level ABG pH POC ABG pCO2 POC ABG pO2 ABG pO2 ABG HCO3 ABG O2 Saturation ABG Base Excess ABG Hemoglobin ABG Oxyhemoglobin VBG pH ABG Sodium ABG Potassium ABG Glucose Oxyhemoglobin Sodium Potassium Chloride Carbon Dioxide BUN Creatinine Glucose POC Glucose 134 H 140 H 148 H Lactic Acid Calcium Ferritin AST Alkaline Phosphatase Magnesium Lactate Dehydrogenase Total Creatine Kinase CK-MB (CK-2) C-Reactive Protein Total Protein Albumin Troponin T HDL Cholesterol Arterial Blood Glucose Urine WBC (Auto) Urine Creatinine Urine Total Protein Phenytoin Coronavirus (PCR) Crossmatch 07/11/20 07/11/20 07/11/20 12:14 17:28 23:49 WBC RBC Hgb Hct MCHC RDW Lymph % (Auto) Evans % (Auto) Eos % (Auto) Lymph # Evans # Lymph # (Auto) Evans # (Auto) Eos # (Auto) Seg Neutrophils % Seg Neuts % (Manual) Lymphocytes % (Manual) Seg Neutrophils # Seg Neutrophils # Man Lymphocytes # (Manual) Monocytes % (Manual) Eosinophils % (Manual) Monocytes # (Manual) Eosinophils # (Manual) D-Dimer Heparin Anti-Xa Level ABG pH POC ABG pCO2 POC ABG pO2 ABG pO2 ABG HCO3 ABG O2 Saturation ABG Base Excess ABG Hemoglobin ABG Oxyhemoglobin VBG pH ABG Sodium ABG Potassium ABG Glucose Oxyhemoglobin Sodium Potassium Chloride Carbon Dioxide BUN Creatinine Glucose POC Glucose 147 H 175 H 114 H Lactic Acid Calcium Ferritin AST Alkaline Phosphatase Magnesium Lactate Dehydrogenase Total Creatine Kinase CK-MB (CK-2) C-Reactive Protein Total Protein Albumin Troponin T HDL Cholesterol Arterial Blood Glucose Urine WBC (Auto) Urine Creatinine Urine Total Protein Phenytoin Coronavirus (PCR) Crossmatch 07/12/20 07/12/20 07/12/20 05:14 05:14 05:44 WBC RBC 2.78 L Hgb 8.5 L Hct 25.3 L MCHC RDW 16.7 H Lymph % (Auto) Evans % (Auto) Eos % (Auto) Lymph # Evans # Lymph # (Auto) Evans # (Auto) Eos # (Auto) Seg Neutrophils % Seg Neuts % (Manual) 81.0 H Lymphocytes % (Manual) 6.0 L Seg Neutrophils # Seg Neutrophils # Man Lymphocytes # (Manual) 0.6 L Monocytes % (Manual) 8.0 H Eosinophils % (Manual) Monocytes # (Manual) Eosinophils # (Manual) D-Dimer Heparin Anti-Xa Level ABG pH POC ABG pCO2 POC ABG pO2 ABG pO2 ABG HCO3 ABG O2 Saturation ABG Base Excess ABG Hemoglobin ABG Oxyhemoglobin VBG pH ABG Sodium ABG Potassium ABG Glucose Oxyhemoglobin Sodium Potassium Chloride Carbon Dioxide BUN 79 H Creatinine 2.2 H Glucose 131 H POC Glucose 116 H Lactic Acid Calcium Ferritin AST Alkaline Phosphatase Magnesium Lactate Dehydrogenase Total Creatine Kinase CK-MB (CK-2) C-Reactive Protein Total Protein Albumin Troponin T HDL Cholesterol Arterial Blood Glucose Urine WBC (Auto) Urine Creatinine Urine Total Protein Phenytoin Coronavirus (PCR) Crossmatch 07/12/20 07/12/20 07/13/20 11:32 17:53 00:18 WBC RBC Hgb Hct MCHC RDW Lymph % (Auto) Evans % (Auto) Eos % (Auto) Lymph # Evans # Lymph # (Auto) Evans # (Auto) Eos # (Auto) Seg Neutrophils % Seg Neuts % (Manual) Lymphocytes % (Manual) Seg Neutrophils # Seg Neutrophils # Man Lymphocytes # (Manual) Monocytes % (Manual) Eosinophils % (Manual) Monocytes # (Manual) Eosinophils # (Manual) D-Dimer Heparin Anti-Xa Level ABG pH POC ABG pCO2 POC ABG pO2 ABG pO2 ABG HCO3 ABG O2 Saturation ABG Base Excess ABG Hemoglobin ABG Oxyhemoglobin VBG pH ABG Sodium ABG Potassium ABG Glucose Oxyhemoglobin Sodium Potassium Chloride Carbon Dioxide BUN Creatinine Glucose POC Glucose 132 H 155 H 162 H Lactic Acid Calcium Ferritin AST Alkaline Phosphatase Magnesium Lactate Dehydrogenase Total Creatine Kinase CK-MB (CK-2) C-Reactive Protein Total Protein Albumin Troponin T HDL Cholesterol Arterial Blood Glucose Urine WBC (Auto) Urine Creatinine Urine Total Protein Phenytoin Coronavirus (PCR) Crossmatch 07/13/20 07/13/20 07/13/20 04:53 04:53 06:14 WBC RBC 2.86 L Hgb 8.4 L Hct 25.7 L MCHC RDW 16.8 H Lymph % (Auto) Evans % (Auto) Eos % (Auto) Lymph # Evans # Lymph # (Auto) Evans # (Auto) Eos # (Auto) Seg Neutrophils % Seg Neuts % (Manual) 84.0 H Lymphocytes % (Manual) 7.0 L Seg Neutrophils # Seg Neutrophils # Man Lymphocytes # (Manual) 0.6 L Monocytes % (Manual) Eosinophils % (Manual) Monocytes # (Manual) Eosinophils # (Manual) D-Dimer Heparin Anti-Xa Level ABG pH POC ABG pCO2 POC ABG pO2 ABG pO2 ABG HCO3 ABG O2 Saturation ABG Base Excess ABG Hemoglobin ABG Oxyhemoglobin VBG pH ABG Sodium ABG Potassium ABG Glucose Oxyhemoglobin Sodium 136 L Potassium Chloride Carbon Dioxide BUN 78 H Creatinine 2.0 H Glucose 130 H POC Glucose 141 H Lactic Acid Calcium Ferritin AST Alkaline Phosphatase Magnesium Lactate Dehydrogenase Total Creatine Kinase CK-MB (CK-2) C-Reactive Protein Total Protein Albumin Troponin T HDL Cholesterol Arterial Blood Glucose Urine WBC (Auto) Urine Creatinine Urine Total Protein Phenytoin Coronavirus (PCR) Crossmatch 07/13/20 07/13/20 07/14/20 12:50 18:27 00:22 WBC RBC Hgb Hct MCHC RDW Lymph % (Auto) Evans % (Auto) Eos % (Auto) Lymph # Evans # Lymph # (Auto) Evans # (Auto) Eos # (Auto) Seg Neutrophils % Seg Neuts % (Manual) Lymphocytes % (Manual) Seg Neutrophils # Seg Neutrophils # Man Lymphocytes # (Manual) Monocytes % (Manual) Eosinophils % (Manual) Monocytes # (Manual) Eosinophils # (Manual) D-Dimer Heparin Anti-Xa Level ABG pH POC ABG pCO2 POC ABG pO2 ABG pO2 ABG HCO3 ABG O2 Saturation ABG Base Excess ABG Hemoglobin ABG Oxyhemoglobin VBG pH ABG Sodium ABG Potassium ABG Glucose Oxyhemoglobin Sodium Potassium Chloride Carbon Dioxide BUN Creatinine Glucose POC Glucose 146 H 149 H 157 H Lactic Acid Calcium Ferritin AST Alkaline Phosphatase Magnesium Lactate Dehydrogenase Total Creatine Kinase CK-MB (CK-2) C-Reactive Protein Total Protein Albumin Troponin T HDL Cholesterol Arterial Blood Glucose Urine WBC (Auto) Urine Creatinine Urine Total Protein Phenytoin Coronavirus (PCR) Crossmatch 07/14/20 07/14/20 07/14/20 05:43 08:04 12:12 WBC RBC Hgb Hct MCHC RDW Lymph % (Auto) Evans % (Auto) Eos % (Auto) Lymph # Evans # Lymph # (Auto) Evans # (Auto) Eos # (Auto) Seg Neutrophils % Seg Neuts % (Manual) Lymphocytes % (Manual) Seg Neutrophils # Seg Neutrophils # Man Lymphocytes # (Manual) Monocytes % (Manual) Eosinophils % (Manual) Monocytes # (Manual) Eosinophils # (Manual) D-Dimer Heparin Anti-Xa Level ABG pH POC ABG pCO2 POC ABG pO2 ABG pO2 ABG HCO3 ABG O2 Saturation ABG Base Excess ABG Hemoglobin ABG Oxyhemoglobin VBG pH ABG Sodium ABG Potassium ABG Glucose Oxyhemoglobin Sodium Potassium Chloride Carbon Dioxide BUN Creatinine Glucose POC Glucose 169 H 185 H Lactic Acid Calcium Ferritin AST Alkaline Phosphatase Magnesium Lactate Dehydrogenase Total Creatine Kinase CK-MB (CK-2) C-Reactive Protein Total Protein Albumin Troponin T HDL Cholesterol Arterial Blood Glucose Urine WBC (Auto) Urine Creatinine Urine Total Protein Phenytoin Coronavirus (PCR) Positive A Crossmatch 07/14/20 07/15/20 07/15/20 17:23 00:04 06:06 WBC RBC Hgb Hct MCHC RDW Lymph % (Auto) Evans % (Auto) Eos % (Auto) Lymph # Evans # Lymph # (Auto) Evans # (Auto) Eos # (Auto) Seg Neutrophils % Seg Neuts % (Manual) Lymphocytes % (Manual) Seg Neutrophils # Seg Neutrophils # Man Lymphocytes # (Manual) Monocytes % (Manual) Eosinophils % (Manual) Monocytes # (Manual) Eosinophils # (Manual) D-Dimer Heparin Anti-Xa Level ABG pH POC ABG pCO2 POC ABG pO2 ABG pO2 ABG HCO3 ABG O2 Saturation ABG Base Excess ABG Hemoglobin ABG Oxyhemoglobin VBG pH ABG Sodium ABG Potassium ABG Glucose Oxyhemoglobin Sodium Potassium Chloride Carbon Dioxide BUN Creatinine Glucose POC Glucose 138 H 121 H 140 H Lactic Acid Calcium Ferritin AST Alkaline Phosphatase Magnesium Lactate Dehydrogenase Total Creatine Kinase CK-MB (CK-2) C-Reactive Protein Total Protein Albumin Troponin T HDL Cholesterol Arterial Blood Glucose Urine WBC (Auto) Urine Creatinine Urine Total Protein Phenytoin Coronavirus (PCR) Crossmatch 07/15/20 07/15/20 07/15/20 12:00 17:53 23:53 WBC RBC Hgb Hct MCHC RDW Lymph % (Auto) Evans % (Auto) Eos % (Auto) Lymph # Evans # Lymph # (Auto) Evans # (Auto) Eos # (Auto) Seg Neutrophils % Seg Neuts % (Manual) Lymphocytes % (Manual) Seg Neutrophils # Seg Neutrophils # Man Lymphocytes # (Manual) Monocytes % (Manual) Eosinophils % (Manual) Monocytes # (Manual) Eosinophils # (Manual) D-Dimer Heparin Anti-Xa Level ABG pH POC ABG pCO2 POC ABG pO2 ABG pO2 ABG HCO3 ABG O2 Saturation ABG Base Excess ABG Hemoglobin ABG Oxyhemoglobin VBG pH ABG Sodium ABG Potassium ABG Glucose Oxyhemoglobin Sodium Potassium Chloride Carbon Dioxide BUN Creatinine Glucose POC Glucose 137 H 161 H 156 H Lactic Acid Calcium Ferritin AST Alkaline Phosphatase Magnesium Lactate Dehydrogenase Total Creatine Kinase CK-MB (CK-2) C-Reactive Protein Total Protein Albumin Troponin T HDL Cholesterol Arterial Blood Glucose Urine WBC (Auto) Urine Creatinine Urine Total Protein Phenytoin Coronavirus (PCR) Crossmatch 07/16/20 07/16/20 07/17/20 05:26 17:44 00:07 WBC RBC Hgb Hct MCHC RDW Lymph % (Auto) Evans % (Auto) Eos % (Auto) Lymph # Evans # Lymph # (Auto) Evans # (Auto) Eos # (Auto) Seg Neutrophils % Seg Neuts % (Manual) Lymphocytes % (Manual) Seg Neutrophils # Seg Neutrophils # Man Lymphocytes # (Manual) Monocytes % (Manual) Eosinophils % (Manual) Monocytes # (Manual) Eosinophils # (Manual) D-Dimer Heparin Anti-Xa Level ABG pH POC ABG pCO2 POC ABG pO2 ABG pO2 ABG HCO3 ABG O2 Saturation ABG Base Excess ABG Hemoglobin ABG Oxyhemoglobin VBG pH ABG Sodium ABG Potassium ABG Glucose Oxyhemoglobin Sodium Potassium Chloride Carbon Dioxide BUN Creatinine Glucose POC Glucose 152 H 126 H 189 H Lactic Acid Calcium Ferritin AST Alkaline Phosphatase Magnesium Lactate Dehydrogenase Total Creatine Kinase CK-MB (CK-2) C-Reactive Protein Total Protein Albumin Troponin T HDL Cholesterol Arterial Blood Glucose Urine WBC (Auto) Urine Creatinine Urine Total Protein Phenytoin Coronavirus (PCR) Crossmatch 07/17/20 07/17/20 07/17/20 12:06 18:20 23:25 WBC RBC Hgb Hct MCHC RDW Lymph % (Auto) Evans % (Auto) Eos % (Auto) Lymph # Evans # Lymph # (Auto) Evans # (Auto) Eos # (Auto) Seg Neutrophils % Seg Neuts % (Manual) Lymphocytes % (Manual) Seg Neutrophils # Seg Neutrophils # Man Lymphocytes # (Manual) Monocytes % (Manual) Eosinophils % (Manual) Monocytes # (Manual) Eosinophils # (Manual) D-Dimer Heparin Anti-Xa Level ABG pH POC ABG pCO2 POC ABG pO2 ABG pO2 ABG HCO3 ABG O2 Saturation ABG Base Excess ABG Hemoglobin ABG Oxyhemoglobin VBG pH ABG Sodium ABG Potassium ABG Glucose Oxyhemoglobin Sodium Potassium Chloride Carbon Dioxide BUN Creatinine Glucose POC Glucose 155 H 206 H 161 H Lactic Acid Calcium Ferritin AST Alkaline Phosphatase Magnesium Lactate Dehydrogenase Total Creatine Kinase CK-MB (CK-2) C-Reactive Protein Total Protein Albumin Troponin T HDL Cholesterol Arterial Blood Glucose Urine WBC (Auto) Urine Creatinine Urine Total Protein Phenytoin Coronavirus (PCR) Crossmatch 07/18/20 07/18/20 07/18/20 04:24 05:16 11:53 WBC RBC Hgb Hct MCHC RDW Lymph % (Auto) Evans % (Auto) Eos % (Auto) Lymph # Evans # Lymph # (Auto) Evans # (Auto) Eos # (Auto) Seg Neutrophils % Seg Neuts % (Manual) Lymphocytes % (Manual) Seg Neutrophils # Seg Neutrophils # Man Lymphocytes # (Manual) Monocytes % (Manual) Eosinophils % (Manual) Monocytes # (Manual) Eosinophils # (Manual) D-Dimer Heparin Anti-Xa Level ABG pH POC ABG pCO2 POC ABG pO2 ABG pO2 ABG HCO3 ABG O2 Saturation ABG Base Excess ABG Hemoglobin 8.8 L ABG Oxyhemoglobin VBG pH ABG Sodium 131.6 L ABG Potassium 4.9 H ABG Glucose 131 H Oxyhemoglobin Sodium Potassium Chloride Carbon Dioxide BUN Creatinine Glucose POC Glucose 140 H 176 H Lactic Acid Calcium Ferritin AST Alkaline Phosphatase Magnesium Lactate Dehydrogenase Total Creatine Kinase CK-MB (CK-2) C-Reactive Protein Total Protein Albumin Troponin T HDL Cholesterol Arterial Blood Glucose 131 H Urine WBC (Auto) Urine Creatinine Urine Total Protein Phenytoin Coronavirus (PCR) Crossmatch 07/18/20 07/18/20 07/19/20 18:11 23:51 01:05 WBC RBC 2.76 L Hgb 7.9 L Hct 24.5 L MCHC RDW 17.6 H Lymph % (Auto) 11.6 L Evans % (Auto) 13.1 H Eos % (Auto) Lymph # Evans # Lymph # (Auto) 1.0 L Evans # (Auto) 1.1 H Eos # (Auto) Seg Neutrophils % 70.9 H Seg Neuts % (Manual) Lymphocytes % (Manual) Seg Neutrophils # Seg Neutrophils # Man Lymphocytes # (Manual) Monocytes % (Manual) Eosinophils % (Manual) Monocytes # (Manual) Eosinophils # (Manual) D-Dimer Heparin Anti-Xa Level ABG pH POC ABG pCO2 POC ABG pO2 ABG pO2 ABG HCO3 ABG O2 Saturation ABG Base Excess ABG Hemoglobin ABG Oxyhemoglobin VBG pH ABG Sodium ABG Potassium ABG Glucose Oxyhemoglobin Sodium Potassium Chloride Carbon Dioxide BUN Creatinine Glucose POC Glucose 143 H 159 H Lactic Acid Calcium Ferritin AST Alkaline Phosphatase Magnesium Lactate Dehydrogenase Total Creatine Kinase CK-MB (CK-2) C-Reactive Protein Total Protein Albumin Troponin T HDL Cholesterol Arterial Blood Glucose Urine WBC (Auto) Urine Creatinine Urine Total Protein Phenytoin Coronavirus (PCR) Crossmatch 07/19/20 07/19/20 07/19/20 01:05 05:54 12:46 WBC RBC Hgb Hct MCHC RDW Lymph % (Auto) Evans % (Auto) Eos % (Auto) Lymph # Evans # Lymph # (Auto) Evans # (Auto) Eos # (Auto) Seg Neutrophils % Seg Neuts % (Manual) Lymphocytes % (Manual) Seg Neutrophils # Seg Neutrophils # Man Lymphocytes # (Manual) Monocytes % (Manual) Eosinophils % (Manual) Monocytes # (Manual) Eosinophils # (Manual) D-Dimer Heparin Anti-Xa Level ABG pH POC ABG pCO2 POC ABG pO2 ABG pO2 ABG HCO3 ABG O2 Saturation ABG Base Excess ABG Hemoglobin ABG Oxyhemoglobin VBG pH ABG Sodium ABG Potassium ABG Glucose Oxyhemoglobin Sodium Potassium Chloride Carbon Dioxide BUN 86 H Creatinine 1.7 H Glucose 149 H POC Glucose 176 H 127 H Lactic Acid Calcium Ferritin AST Alkaline Phosphatase Magnesium Lactate Dehydrogenase Total Creatine Kinase CK-MB (CK-2) C-Reactive Protein Total Protein Albumin Troponin T HDL Cholesterol Arterial Blood Glucose Urine WBC (Auto) Urine Creatinine Urine Total Protein Phenytoin Coronavirus (PCR) Crossmatch 07/19/20 07/20/20 07/20/20 17:48 00:34 05:28 WBC RBC Hgb Hct MCHC RDW Lymph % (Auto) Evans % (Auto) Eos % (Auto) Lymph # Evans # Lymph # (Auto) Evans # (Auto) Eos # (Auto) Seg Neutrophils % Seg Neuts % (Manual) Lymphocytes % (Manual) Seg Neutrophils # Seg Neutrophils # Man Lymphocytes # (Manual) Monocytes % (Manual) Eosinophils % (Manual) Monocytes # (Manual) Eosinophils # (Manual) D-Dimer Heparin Anti-Xa Level ABG pH POC ABG pCO2 POC ABG pO2 ABG pO2 ABG HCO3 ABG O2 Saturation ABG Base Excess ABG Hemoglobin ABG Oxyhemoglobin VBG pH ABG Sodium ABG Potassium ABG Glucose Oxyhemoglobin Sodium Potassium Chloride Carbon Dioxide BUN Creatinine Glucose POC Glucose 123 H 147 H 110 H Lactic Acid Calcium Ferritin AST Alkaline Phosphatase Magnesium Lactate Dehydrogenase Total Creatine Kinase CK-MB (CK-2) C-Reactive Protein Total Protein Albumin Troponin T HDL Cholesterol Arterial Blood Glucose Urine WBC (Auto) Urine Creatinine Urine Total Protein Phenytoin Coronavirus (PCR) Crossmatch 07/20/20 07/20/20 07/21/20 12:10 17:00 00:11 WBC RBC Hgb Hct MCHC RDW Lymph % (Auto) Evans % (Auto) Eos % (Auto) Lymph # Evans # Lymph # (Auto) Evans # (Auto) Eos # (Auto) Seg Neutrophils % Seg Neuts % (Manual) Lymphocytes % (Manual) Seg Neutrophils # Seg Neutrophils # Man Lymphocytes # (Manual) Monocytes % (Manual) Eosinophils % (Manual) Monocytes # (Manual) Eosinophils # (Manual) D-Dimer Heparin Anti-Xa Level ABG pH POC ABG pCO2 POC ABG pO2 ABG pO2 ABG HCO3 ABG O2 Saturation ABG Base Excess ABG Hemoglobin ABG Oxyhemoglobin VBG pH ABG Sodium ABG Potassium ABG Glucose Oxyhemoglobin Sodium Potassium Chloride Carbon Dioxide BUN Creatinine Glucose POC Glucose 149 H 173 H 128 H Lactic Acid Calcium Ferritin AST Alkaline Phosphatase Magnesium Lactate Dehydrogenase Total Creatine Kinase CK-MB (CK-2) C-Reactive Protein Total Protein Albumin Troponin T HDL Cholesterol Arterial Blood Glucose Urine WBC (Auto) Urine Creatinine Urine Total Protein Phenytoin Coronavirus (PCR) Crossmatch 07/21/20 07/21/20 07/21/20 05:30 12:21 18:17 WBC RBC Hgb Hct MCHC RDW Lymph % (Auto) Evans % (Auto) Eos % (Auto) Lymph # Evans # Lymph # (Auto) Evans # (Auto) Eos # (Auto) Seg Neutrophils % Seg Neuts % (Manual) Lymphocytes % (Manual) Seg Neutrophils # Seg Neutrophils # Man Lymphocytes # (Manual) Monocytes % (Manual) Eosinophils % (Manual) Monocytes # (Manual) Eosinophils # (Manual) D-Dimer Heparin Anti-Xa Level ABG pH POC ABG pCO2 POC ABG pO2 ABG pO2 ABG HCO3 ABG O2 Saturation ABG Base Excess ABG Hemoglobin ABG Oxyhemoglobin VBG pH ABG Sodium ABG Potassium ABG Glucose Oxyhemoglobin Sodium Potassium Chloride Carbon Dioxide BUN Creatinine Glucose POC Glucose 153 H 144 H 160 H Lactic Acid Calcium Ferritin AST Alkaline Phosphatase Magnesium Lactate Dehydrogenase Total Creatine Kinase CK-MB (CK-2) C-Reactive Protein Total Protein Albumin Troponin T HDL Cholesterol Arterial Blood Glucose Urine WBC (Auto) Urine Creatinine Urine Total Protein Phenytoin Coronavirus (PCR) Crossmatch 07/22/20 07/22/20 07/22/20 00:45 05:52 12:03 WBC RBC Hgb Hct MCHC RDW Lymph % (Auto) Evans % (Auto) Eos % (Auto) Lymph # Evans # Lymph # (Auto) Evans # (Auto) Eos # (Auto) Seg Neutrophils % Seg Neuts % (Manual) Lymphocytes % (Manual) Seg Neutrophils # Seg Neutrophils # Man Lymphocytes # (Manual) Monocytes % (Manual) Eosinophils % (Manual) Monocytes # (Manual) Eosinophils # (Manual) D-Dimer Heparin Anti-Xa Level ABG pH POC ABG pCO2 POC ABG pO2 ABG pO2 ABG HCO3 ABG O2 Saturation ABG Base Excess ABG Hemoglobin ABG Oxyhemoglobin VBG pH ABG Sodium ABG Potassium ABG Glucose Oxyhemoglobin Sodium Potassium Chloride Carbon Dioxide BUN Creatinine Glucose POC Glucose 128 H 126 H 157 H Lactic Acid Calcium Ferritin AST Alkaline Phosphatase Magnesium Lactate Dehydrogenase Total Creatine Kinase CK-MB (CK-2) C-Reactive Protein Total Protein Albumin Troponin T HDL Cholesterol Arterial Blood Glucose Urine WBC (Auto) Urine Creatinine Urine Total Protein Phenytoin Coronavirus (PCR) Crossmatch 07/22/20 07/22/20 07/23/20 18:23 23:20 06:06 WBC RBC Hgb Hct MCHC RDW Lymph % (Auto) Evans % (Auto) Eos % (Auto) Lymph # Evans # Lymph # (Auto) Evans # (Auto) Eos # (Auto) Seg Neutrophils % Seg Neuts % (Manual) Lymphocytes % (Manual) Seg Neutrophils # Seg Neutrophils # Man Lymphocytes # (Manual) Monocytes % (Manual) Eosinophils % (Manual) Monocytes # (Manual) Eosinophils # (Manual) D-Dimer Heparin Anti-Xa Level ABG pH POC ABG pCO2 POC ABG pO2 ABG pO2 ABG HCO3 ABG O2 Saturation ABG Base Excess ABG Hemoglobin ABG Oxyhemoglobin VBG pH ABG Sodium ABG Potassium ABG Glucose Oxyhemoglobin Sodium Potassium Chloride Carbon Dioxide BUN Creatinine Glucose POC Glucose 152 H 122 H 143 H Lactic Acid Calcium Ferritin AST Alkaline Phosphatase Magnesium Lactate Dehydrogenase Total Creatine Kinase CK-MB (CK-2) C-Reactive Protein Total Protein Albumin Troponin T HDL Cholesterol Arterial Blood Glucose Urine WBC (Auto) Urine Creatinine Urine Total Protein Phenytoin Coronavirus (PCR) Crossmatch 07/23/20 07/23/20 07/23/20 12:11 17:38 19:23 WBC RBC Hgb Hct MCHC RDW Lymph % (Auto) Evans % (Auto) Eos % (Auto) Lymph # Evans # Lymph # (Auto) Evans # (Auto) Eos # (Auto) Seg Neutrophils % Seg Neuts % (Manual) Lymphocytes % (Manual) Seg Neutrophils # Seg Neutrophils # Man Lymphocytes # (Manual) Monocytes % (Manual) Eosinophils % (Manual) Monocytes # (Manual) Eosinophils # (Manual) D-Dimer Heparin Anti-Xa Level ABG pH POC ABG pCO2 POC ABG pO2 ABG pO2 ABG HCO3 ABG O2 Saturation ABG Base Excess ABG Hemoglobin ABG Oxyhemoglobin VBG pH ABG Sodium ABG Potassium ABG Glucose Oxyhemoglobin Sodium 129 L D Potassium 5.8 H Chloride 95.6 L Carbon Dioxide BUN 98 H Creatinine 2.1 H Glucose 167 H POC Glucose 210 H 181 H Lactic Acid Calcium Ferritin AST Alkaline Phosphatase Magnesium Lactate Dehydrogenase Total Creatine Kinase CK-MB (CK-2) C-Reactive Protein Total Protein Albumin 2.2 L Troponin T HDL Cholesterol Arterial Blood Glucose Urine WBC (Auto) Urine Creatinine Urine Total Protein Phenytoin Coronavirus (PCR) Crossmatch 07/24/20 07/24/20 07/24/20 00:00 04:29 04:29 WBC RBC 2.53 L Hgb 7.5 L Hct 22.8 L MCHC RDW 16.8 H Lymph % (Auto) 9.4 L Evans % (Auto) 10.4 H Eos % (Auto) 5.9 H Lymph # Evans # Lymph # (Auto) 0.8 L Evans # (Auto) 0.9 H Eos # (Auto) 0.5 H Seg Neutrophils % 73.5 H Seg Neuts % (Manual) Lymphocytes % (Manual) Seg Neutrophils # Seg Neutrophils # Man Lymphocytes # (Manual) Monocytes % (Manual) Eosinophils % (Manual) Monocytes # (Manual) Eosinophils # (Manual) D-Dimer Heparin Anti-Xa Level ABG pH POC ABG pCO2 POC ABG pO2 ABG pO2 ABG HCO3 ABG O2 Saturation ABG Base Excess ABG Hemoglobin ABG Oxyhemoglobin VBG pH ABG Sodium ABG Potassium ABG Glucose Oxyhemoglobin Sodium Potassium Chloride Carbon Dioxide BUN Creatinine Glucose POC Glucose 201 H Lactic Acid Calcium Ferritin AST Alkaline Phosphatase Magnesium Lactate Dehydrogenase Total Creatine Kinase CK-MB (CK-2) C-Reactive Protein Total Protein Albumin Troponin T HDL Cholesterol Arterial Blood Glucose Urine WBC (Auto) Urine Creatinine Urine Total Protein Phenytoin 9.4 L Coronavirus (PCR) Crossmatch 07/24/20 07/24/20 07/24/20 04:29 05:11 12:14 WBC RBC Hgb Hct MCHC RDW Lymph % (Auto) Evans % (Auto) Eos % (Auto) Lymph # Evans # Lymph # (Auto) Evans # (Auto) Eos # (Auto) Seg Neutrophils % Seg Neuts % (Manual) Lymphocytes % (Manual) Seg Neutrophils # Seg Neutrophils # Man Lymphocytes # (Manual) Monocytes % (Manual) Eosinophils % (Manual) Monocytes # (Manual) Eosinophils # (Manual) D-Dimer Heparin Anti-Xa Level ABG pH POC ABG pCO2 POC ABG pO2 ABG pO2 ABG HCO3 ABG O2 Saturation ABG Base Excess ABG Hemoglobin ABG Oxyhemoglobin VBG pH ABG Sodium ABG Potassium ABG Glucose Oxyhemoglobin Sodium 134 L Potassium 5.5 H Chloride Carbon Dioxide BUN 97 H Creatinine 2.2 H Glucose 149 H POC Glucose 142 H 146 H Lactic Acid Calcium Ferritin AST Alkaline Phosphatase Magnesium 2.60 H Lactate Dehydrogenase Total Creatine Kinase CK-MB (CK-2) C-Reactive Protein Total Protein Albumin Troponin T HDL Cholesterol Arterial Blood Glucose Urine WBC (Auto) Urine Creatinine Urine Total Protein Phenytoin Coronavirus (PCR) Crossmatch 07/24/20 07/24/20 07/25/20 18:12 21:00 00:08 WBC RBC Hgb Hct MCHC RDW Lymph % (Auto) Evans % (Auto) Eos % (Auto) Lymph # Evans # Lymph # (Auto) Evans # (Auto) Eos # (Auto) Seg Neutrophils % Seg Neuts % (Manual) Lymphocytes % (Manual) Seg Neutrophils # Seg Neutrophils # Man Lymphocytes # (Manual) Monocytes % (Manual) Eosinophils % (Manual) Monocytes # (Manual) Eosinophils # (Manual) D-Dimer Heparin Anti-Xa Level ABG pH POC ABG pCO2 POC ABG pO2 ABG pO2 ABG HCO3 ABG O2 Saturation ABG Base Excess ABG Hemoglobin ABG Oxyhemoglobin VBG pH ABG Sodium ABG Potassium ABG Glucose Oxyhemoglobin Sodium Potassium Chloride Carbon Dioxide BUN Creatinine Glucose POC Glucose 182 H 170 H 129 H Lactic Acid Calcium Ferritin AST Alkaline Phosphatase Magnesium Lactate Dehydrogenase Total Creatine Kinase CK-MB (CK-2) C-Reactive Protein Total Protein Albumin Troponin T HDL Cholesterol Arterial Blood Glucose Urine WBC (Auto) Urine Creatinine Urine Total Protein Phenytoin Coronavirus (PCR) Crossmatch 07/25/20 07/25/20 07/25/20 04:24 04:24 12:19 WBC RBC 2.51 L Hgb 7.5 L Hct 22.3 L MCHC RDW 17.4 H Lymph % (Auto) Evans % (Auto) Eos % (Auto) Lymph # Evans # Lymph # (Auto) Evans # (Auto) Eos # (Auto) Seg Neutrophils % Seg Neuts % (Manual) Lymphocytes % (Manual) Seg Neutrophils # Seg Neutrophils # Man Lymphocytes # (Manual) Monocytes % (Manual) Eosinophils % (Manual) Monocytes # (Manual) Eosinophils # (Manual) D-Dimer Heparin Anti-Xa Level ABG pH POC ABG pCO2 POC ABG pO2 ABG pO2 ABG HCO3 ABG O2 Saturation ABG Base Excess ABG Hemoglobin ABG Oxyhemoglobin VBG pH ABG Sodium ABG Potassium ABG Glucose Oxyhemoglobin Sodium 132 L Potassium Chloride 95.1 L Carbon Dioxide 21 L BUN 95 H Creatinine 2.5 H Glucose 108 H POC Glucose 122 H Lactic Acid Calcium Ferritin AST Alkaline Phosphatase Magnesium Lactate Dehydrogenase Total Creatine Kinase CK-MB (CK-2) C-Reactive Protein Total Protein Albumin Troponin T HDL Cholesterol Arterial Blood Glucose Urine WBC (Auto) Urine Creatinine Urine Total Protein Phenytoin Coronavirus (PCR) Crossmatch 07/25/20 07/25/20 07/26/20 18:11 23:24 04:22 WBC RBC Hgb Hct MCHC RDW Lymph % (Auto) Evans % (Auto) Eos % (Auto) Lymph # Evans # Lymph # (Auto) Evans # (Auto) Eos # (Auto) Seg Neutrophils % Seg Neuts % (Manual) Lymphocytes % (Manual) Seg Neutrophils # Seg Neutrophils # Man Lymphocytes # (Manual) Monocytes % (Manual) Eosinophils % (Manual) Monocytes # (Manual) Eosinophils # (Manual) D-Dimer Heparin Anti-Xa Level ABG pH POC ABG pCO2 POC ABG pO2 ABG pO2 ABG HCO3 ABG O2 Saturation ABG Base Excess ABG Hemoglobin ABG Oxyhemoglobin VBG pH ABG Sodium ABG Potassium ABG Glucose Oxyhemoglobin Sodium 132 L Potassium Chloride 96.2 L Carbon Dioxide 21 L BUN 99 H Creatinine 2.5 H Glucose 132 H POC Glucose 137 H 117 H Lactic Acid Calcium 8.2 L Ferritin AST Alkaline Phosphatase Magnesium Lactate Dehydrogenase Total Creatine Kinase CK-MB (CK-2) C-Reactive Protein Total Protein Albumin Troponin T HDL Cholesterol Arterial Blood Glucose Urine WBC (Auto) Urine Creatinine Urine Total Protein Phenytoin Coronavirus (PCR) Crossmatch 07/26/20 07/26/20 07/26/20 05:58 12:21 17:31 WBC RBC Hgb Hct MCHC RDW Lymph % (Auto) Evans % (Auto) Eos % (Auto) Lymph # Evans # Lymph # (Auto) Evans # (Auto) Eos # (Auto) Seg Neutrophils % Seg Neuts % (Manual) Lymphocytes % (Manual) Seg Neutrophils # Seg Neutrophils # Man Lymphocytes # (Manual) Monocytes % (Manual) Eosinophils % (Manual) Monocytes # (Manual) Eosinophils # (Manual) D-Dimer Heparin Anti-Xa Level ABG pH POC ABG pCO2 POC ABG pO2 ABG pO2 ABG HCO3 ABG O2 Saturation ABG Base Excess ABG Hemoglobin ABG Oxyhemoglobin VBG pH ABG Sodium ABG Potassium ABG Glucose Oxyhemoglobin Sodium Potassium Chloride Carbon Dioxide BUN Creatinine Glucose POC Glucose 110 H 142 H 180 H Lactic Acid Calcium Ferritin AST Alkaline Phosphatase Magnesium Lactate Dehydrogenase Total Creatine Kinase CK-MB (CK-2) C-Reactive Protein Total Protein Albumin Troponin T HDL Cholesterol Arterial Blood Glucose Urine WBC (Auto) Urine Creatinine Urine Total Protein Phenytoin Coronavirus (PCR) Crossmatch 07/26/20 07/27/20 07/27/20 23:36 03:36 05:36 WBC RBC 2.49 L Hgb 7.3 L Hct 22.2 L MCHC RDW 17.2 H Lymph % (Auto) 11.0 L Evans % (Auto) 11.7 H Eos % (Auto) Lymph # Evans # Lymph # (Auto) 0.8 L Evans # (Auto) 0.9 H Eos # (Auto) Seg Neutrophils % 72.3 H Seg Neuts % (Manual) Lymphocytes % (Manual) Seg Neutrophils # Seg Neutrophils # Man Lymphocytes # (Manual) Monocytes % (Manual) Eosinophils % (Manual) Monocytes # (Manual) Eosinophils # (Manual) D-Dimer Heparin Anti-Xa Level ABG pH POC ABG pCO2 POC ABG pO2 ABG pO2 ABG HCO3 ABG O2 Saturation ABG Base Excess ABG Hemoglobin ABG Oxyhemoglobin VBG pH ABG Sodium ABG Potassium ABG Glucose Oxyhemoglobin Sodium Potassium Chloride Carbon Dioxide BUN Creatinine Glucose POC Glucose 162 H 118 H Lactic Acid Calcium Ferritin AST Alkaline Phosphatase Magnesium Lactate Dehydrogenase Total Creatine Kinase CK-MB (CK-2) C-Reactive Protein Total Protein Albumin Troponin T HDL Cholesterol Arterial Blood Glucose Urine WBC (Auto) Urine Creatinine Urine Total Protein Phenytoin Coronavirus (PCR) Crossmatch 07/27/20 05:36 WBC RBC Hgb Hct MCHC RDW Lymph % (Auto) Evans % (Auto) Eos % (Auto) Lymph # Evans # Lymph # (Auto) Evans # (Auto) Eos # (Auto) Seg Neutrophils % Seg Neuts % (Manual) Lymphocytes % (Manual) Seg Neutrophils # Seg Neutrophils # Man Lymphocytes # (Manual) Monocytes % (Manual) Eosinophils % (Manual) Monocytes # (Manual) Eosinophils # (Manual) D-Dimer Heparin Anti-Xa Level ABG pH POC ABG pCO2 POC ABG pO2 ABG pO2 ABG HCO3 ABG O2 Saturation ABG Base Excess ABG Hemoglobin ABG Oxyhemoglobin VBG pH ABG Sodium ABG Potassium ABG Glucose Oxyhemoglobin Sodium 135 L Potassium 5.3 H Chloride Carbon Dioxide 21 L BUN 103 H Creatinine 2.6 H Glucose 113 H POC Glucose Lactic Acid Calcium 8.1 L Ferritin AST Alkaline Phosphatase Magnesium Lactate Dehydrogenase Total Creatine Kinase CK-MB (CK-2) C-Reactive Protein Total Protein Albumin Troponin T HDL Cholesterol Arterial Blood Glucose Urine WBC (Auto) Urine Creatinine Urine Total Protein Phenytoin Coronavirus (PCR) Crossmatch Allied health notes reviewed: RT
--- NOTE | 2020-07-27 08:56 | Progress Note ---
Assessment and Plan Assessment and plan: 64 YO Female with a medical history of HTN, Diastolic CHF, Pulmonary HTN, DM, Obesity Hypoventilation Syndrome presents to ED for evaluation of shortness of breath. As per staff, the EMS was notified for difficulty breathing. Upon arrival to the patient's home the patient was found to be in distress and was subsequently transported to [facility] for further evaluation and care. In route to [facility] the patient developed cardiac arrest and was treated in accordance with ACLS protocol with return of ROSC. Patient was seen and evaluated in the emergency department and was intubated and placed on ventilatory support. Patient admitted to ICU. Critical care team consulted in ED. She was found to have COVID-19 infection and was started on steroids and remdesivir. ID was consulted. Cardiology was consulted for her systolic heart failure and cardiac arrest. Patient completed treatment for COVID-19, then develop superimposed bacterial pneumonia with Klebsiella. She is now extubated, 06/12/2020 but remains confused and requiring high flow O2 and intermittent BiPAP. Patient had another cardiac arrest reintubated 06/26/2020, currently in ICU vent dependent, unable to do trach and PEG due to persistent COVID-19 positive state, as well as anoxic brain injury, unable to get MRI , neurology following. Assessment and plan: 05/28/2020 COVID-19 test positive 06/29/2020 COVID-19 test positive 07/14/2020 COVID-19 test positive --Acute hypoxemic respiratory failure; vent dependent intubated on admission, extubated on 06/12/20 then placed on high flow o2 patient developed another respiratory arrest on 06/26 - reintubated Patient not tolerating weaning parameters CC following, Surgery evaluated the patient for trach and PEG COVID-19 test positive x3, trach and PEG pending neuro evaluation to evaluate severity of anoxic brain injury -- Hypertension; well controlled Increase hydralazine dose to 75 mg 3 times a day Continue amlodipine, coreg, clonidine and hydralazine And minoxidil, closely monitor blood pressures PRN labetalol --s/p cardiopulmonary arrest on admission, 06/26 and 07/01, s/p CPR per ACLS protocol, refer to code sheet --Possible anoxic brain injury, neurology consulted, neuro requested MRI brain, EEG MRI brain could not be done due to body habitus, EEG not done --Seizures seizure precautions; continue Keppra, follow EEG neurology following --Acute renal failure : creatinine 2.4-2.5-2.9-1.7 --Acute renal failure : creatinine 2.4-2.5-2.9-1.7 Vasomotor nephropathy, gentle hydration Avoid nephrotoxins, monitor renal function Reconsult nephrology if needed --Rectal bleeding; resolved --Acute blood loss anemia; total 3 units PRBC transfused Closely monitor H&H, GI following, no plans of endoscopy --Severe sepsis; completed antibiotics per ID persistently positive for COVID-19 and Klebsiella pneumoniae --COVID-19 b/l PNA Completed remdesivir on 06/02 Completed dexamethasone - Last dose 06/07 COVID 19 test positive x 3 during this admission --Superficial left cephalic vein DVT/elevated D-dimers[COVID 19] Patient initially started on heparin drip from 05/29/20 D-dimers improved [id number] treated with Eliquis 5 mg twice a day for 1 week[per ID] stop date 06/26/2020 -- Acute toxic metabolic encephalopathy, POA likely from sepsis and s/p cardiac arrest with possible anoxic injury -- Acute renal failure: likely ATN avoid nephrotoxins, reconsult nephrology if no improvement --Klebsiella pneumonia: ID evaluated completed second round of 5 days of cefepime on 07/04/2020 --Acute on chronic systolic heart failure Cardiology following. Ef 45% -- Coffee ground emesis -Stress ulcers Possible stress ulcers, On PPI H/H again dropped - transfuse GI evaluated --Transaminitis. Etiology likely from COVID-19. cont to monitor --Hyperkalemia; calcium gluconate, Kayexalate, monitor electrolytes --Shock; fluid bolus, Levophed per protocol Patient critically ill poor prognosis Currently patient is hypertensive -- DVT prophylaxis Eliquis, SCD to bilateral lower extremities while in bed -- Advance care planning Patient is critically ill with multiple medical problems Poor prognosis, family updated and requesting full code The high probability of a clinically significant, sudden or life threatening deterioration of the [CVS, renal, respiratory, [employer]] system(s) required my full and direct attention, intervention and personal management. The aggregate critical care time was [35] minutes. This time is in addition to time spent performing reported procedures but includes the following: [x] Data Review and interpretation [x] Patient assessment and monitoring of vital signs [x] Documentation [x] Medication orders and management 07/11/2020. Patient currently on mechanical ventilation AC/PRVC with rate of 12, tidal volume 450, FiO2 30% and PEEP of 6 07/12/2020. Patient placed on CPAP with pressure support of 10 and tolerating well. Continue PSB trials as tolerated. 07/13/2020. Patient currently with AC mode rate 12, tidal volume 450, FiO2 30% and PEEP of 6. Surgery has been consulted for trach and PEG placement. Recall nephrology for renal insufficiency. 07/14/20; surgery evaluated for trach and PEG , pending call with test which is is positive today COVID-19 test positive x3 since admission 07/16; trach and PEG pending neuro evaluation 07/17; vent dependent, trach PEG pending neuro evaluation, pending MRI EEG study[already ordered] 07/18; unable to do MRI, due to body habitus, morbid obesity, radiology consult Patient critically ill very poor prognosis 07/19; remains intubated on vent, clinically no change 07/20; unable to wean, needs trach and PEG, need MRI , unable to do due to body habitus 07/21; clinically no change, remains intubated on ventilatory support 07/22; I recommend family meeting, to discuss the goals of treatment, discussed with case management 07/23; patient's blood pressures in the lower range, will hold antihypertensives, fluid bolus, if no improvement Levophed per protocol 07/24: Patient remains critically ill, unable to obtain MRI at this facility and unstable for transfer, Will reconsult Nephrology as creatinine now worse, with worsening Hypotension and Hyperkalemia- Overnight the patient required pressors Secondary to Hypotension, Will place PICC line. Will give kayxalate, continue to hold all BP meds. Hyponatermia improving. 07/24; patient remains to critically ill, nephrology consult appreciated, creatinine is worsening. Hypotension resolved with. Still patient is hypernatremic 07/26; patient is hypertensive and her blood pressure medications were resumed and as needed medications also started. Patient is being followed by nephrology for hyponatremia and AVANI. Patient has anemia. We will check labs in the morning. 07/27; patient is still intubated and on mechanical ventilation. Followed by pulmonary critical care. Nephrology is considering to dialyze the patient after discussing with the family. History Interval history: Patient was seen and evaluated this morning Patient is intubated and on mechanical ventilation Hospitalist Physical - Physical exam Narrative exam: Intubated and on mechanical ventilation The patient is morbidly obese. Vital signs as documented. Head exam is unremarkable. No scleral icterus . Neck is without jugular venous distension, thyromegaly, or carotid bruits. Lungs are clear to auscultation. Cardiac exam reveals regular rate and Rhythm. Abdominal exam reveals normal bowel sounds, nontender, no organomegaly. Extremities are nonedematous and both femoral and pedal pulses are normal. [employer]: Intubated. - Constitutional Vitals: Temp Pulse Resp BP Pulse Ox 97.6 F 60 20 162/64 95 07/27/20 08:00 07/27/20 08:37 07/27/20 08:37 07/27/20 08:37 07/27/20 08:37 General appearance: Present: no acute distress, well-nourished, obese (Morbidly obese), other (Intubated on ventilatory support) HEART Score - HEART Score Troponin: Troponin T 0.067 ng/mL (0.00-0.029) H 07/01/20 06:01 Results - Labs CBC & Chem 7: 07/27/20 05:36 07/27/20 05:36 Labs: Laboratory Last Values WBC 7.3 K/mm3 (4.5-11.0) 07/27/20 05:36 RBC 2.49 M/mm3 (3.65-5.03) L 07/27/20 05:36 Hgb 7.3 gm/dl (10.1-14.3) L 07/27/20 05:36 Hct 22.2 % (30.3-42.9) L 07/27/20 05:36 MCV 89 fl (79-97) 07/27/20 05:36 MCH 29 pg (28-32) 07/27/20 05:36 MCHC 33 % (30-34) 07/27/20 05:36 RDW 17.2 % (13.2-15.2) H 07/27/20 05:36 Plt Count 400 K/mm3 (140-440) 07/27/20 05:36 Lymph % (Auto) 11.0 % (13.4-35.0) L 07/27/20 05:36 [place] % (Auto) 11.7 % (0.0-7.3) H 07/27/20 05:36 Eos % (Auto) 4.2 % (0.0-4.3) 07/27/20 05:36 Baso % (Auto) 0.8 % (0.0-1.8) 07/27/20 05:36 Lymph # (Auto) 0.8 K/mm3 (1.2-5.4) L 07/27/20 05:36 [place] # (Auto) 0.9 K/mm3 (0.0-0.8) H 07/27/20 05:36 Eos # (Auto) 0.3 K/mm3 (0.0-0.4) 07/27/20 05:36 Baso # (Auto) 0.1 K/mm3 (0.0-0.1) 07/27/20 05:36 Add Manual Diff Complete 07/13/20 04:53 Total Counted 100 07/13/20 04:53 Seg Neutrophils % 72.3 % (40.0-70.0) H 07/27/20 05:36 Seg Neuts % (Manual) 84.0 % (40.0-70.0) H 07/13/20 04:53 Band Neutrophils % 1.0 % 07/13/20 04:53 Lymphocytes % (Manual) 7.0 % (13.4-35.0) L 07/13/20 04:53 Reactive Lymphs % (Man) 0 % 07/13/20 04:53 Monocytes % (Manual) 5.0 % (0.0-7.3) 07/13/20 04:53 Eosinophils % (Manual) 1.0 % (0.0-4.3) 07/13/20 04:53 Basophils % (Manual) 0 % (0.0-1.8) 07/13/20 04:53 Metamyelocytes % 2.0 % 07/13/20 04:53 Myelocytes % 0 % 07/13/20 04:53 Promyelocytes % 0 % 07/13/20 04:53 Blast Cells % 0 % 07/13/20 04:53 Nucleated RBC % Not Reportable 07/13/20 04:53 Seg Neutrophils # 5.3 K/mm3 (1.8-7.7) 07/27/20 05:36 Seg Neutrophils # Man 7.1 K/mm3 (1.8-7.7) 07/13/20 04:53 Band Neutrophils # 0.1 K/mm3 07/13/20 04:53 Lymphocytes # (Manual) 0.6 K/mm3 (1.2-5.4) L 07/13/20 04:53 Abs React Lymphs (Man) 0.0 K/mm3 07/13/20 04:53 Monocytes # (Manual) 0.4 K/mm3 (0.0-0.8) 07/13/20 04:53 Eosinophils # (Manual) 0.1 K/mm3 (0.0-0.4) 07/13/20 04:53 Basophils # (Manual) 0.0 K/mm3 (0.0-0.1) 07/13/20 04:53 Metamyelocytes # 0.2 K/mm3 07/13/20 04:53 Myelocytes # 0.0 K/mm3 07/13/20 04:53 Promyelocytes # 0.0 K/mm3 07/13/20 04:53 Blast Cells # 0.0 K/mm3 07/13/20 04:53 WBC Morphology Not Reportable 07/13/20 04:53 Hypersegmented Neuts Not Reportable 07/13/20 04:53 Hyposegmented Neuts Not Reportable 07/13/20 04:53 Hypogranular Neuts Not Reportable 07/13/20 04:53 Smudge Cells Not Reportable 07/13/20 04:53 Toxic Granulation Not Reportable 07/13/20 04:53 Toxic Vacuolation Not Reportable 07/13/20 04:53 Dohle Bodies Not Reportable 07/13/20 04:53 Pelger-Huet Anomaly Not Reportable 07/13/20 04:53 Sanjuanita Rods Not Reportable 07/13/20 04:53 Platelet Estimate Consistent w auto 07/13/20 04:53 Clumped Platelets Not Reportable 07/13/20 04:53 Plt Clumps, EDTA Not Reportable 07/13/20 04:53 Large Platelets Not Reportable 07/13/20 04:53 Giant Platelets Not Reportable 07/13/20 04:53 Platelet Satelliting Not Reportable 07/13/20 04:53 Plt Morphology Comment Not Reportable 07/13/20 04:53 RBC Morphology Not Reportable 07/13/20 04:53 Dimorphic RBCs Not Reportable 07/13/20 04:53 Polychromasia Not Reportable 07/13/20 04:53 Hypochromasia Not Reportable 07/13/20 04:53 Poikilocytosis Not Reportable 07/13/20 04:53 Anisocytosis 1+ 07/13/20 04:53 Microcytosis Not Reportable 07/13/20 04:53 Macrocytosis Not Reportable 07/13/20 04:53 Spherocytes Not Reportable 07/13/20 04:53 Pappenheimer Bodies Not Reportable 07/13/20 04:53 Sickle Cells Not Reportable 07/13/20 04:53 Target Cells Not Reportable 07/13/20 04:53 Tear Drop Cells Not Reportable 07/13/20 04:53 Ovalocytes Not Reportable 07/13/20 04:53 Helmet Cells Not Reportable 07/13/20 04:53 [place] Bodies Not Reportable 07/13/20 04:53 [place] Rings Not Reportable 07/13/20 04:53 [place] Cells Not Reportable 07/13/20 04:53 Bite Cells Not Reportable 07/13/20 04:53 Crenated Cell Not Reportable 07/13/20 04:53 Elliptocytes Not Reportable 07/13/20 04:53 Acanthocytes (Spur) Not Reportable 07/13/20 04:53 Rouleaux Not Reportable 07/13/20 04:53 Hemoglobin C Crystals Not Reportable 07/13/20 04:53 Schistocytes Not Reportable 07/13/20 04:53 Malaria parasites Not Reportable 07/13/20 04:53 Kev Bodies Not Reportable 07/13/20 04:53 Hem Pathologist Commnt No 07/13/20 04:53 PT 14.2 Sec. (12.2-14.9) 05/29/20 15:10 INR 1.08 (0.87-1.13) 05/29/20 15:10 APTT 27.2 Sec. (24.2-36.6) 05/29/20 15:10 D-Dimer 2310.15 ng/mlDDU (0-234) H 06/29/20 14:45 Heparin Anti-Xa Level 0.34 U.I./ml (0.3-0.7) 06/19/20 10:46 ABG pH 7.382 (7.320-7.450) 07/18/20 04:24 POC ABG pCO2 44.1 mmHg (32.0-48.0) 07/18/20 04:24 ABG pCO2 47.0 mm Hg 07/05/20 13:05 ABG Oxyhemoglobin 92.6 (94-98) L 06/23/20 12:34 POC ABG pO2 86.8 mmHg (83-108) 07/18/20 04:24 ABG pO2 78.3 mm Hg (80.0-90.0) L 07/05/20 13:05 POC ABG HCO3 25.6 07/18/20 04:24 ABG HCO3 23.4 mmol/L (20.0-26.0) 07/05/20 13:05 ABG O2 Saturation 96.1 % (95.0-99.0) 07/05/20 13:05 ABG O2 Content 0.3 (0.0-44) 07/05/20 13:05 POC ABG Base Excess 0.4 07/18/20 04:24 ABG Base Excess -2.6 mmol/L (-2.0-3.0) L 07/05/20 13:05 ABG Hemoglobin 8.8 (12.0-17.5) L 07/18/20 04:24 ABG Carboxyhemoglobin 1.7 % (0.0-5.0) 07/05/20 13:05 ABG Methemoglobin 0.2 % (0.0-1.5) 07/05/20 13:05 VBG pH 7.152 (7.320-7.420) L* 05/28/20 13:47 ABG Sodium 131.6 mmol/L (136.0-145.0) L 07/18/20 04:24 ABG Potassium 4.9 mmol/L (3.40-4.50) H 07/18/20 04:24 ABG Chloride 104.0 mmol/L (98-107) 07/18/20 04:24 ABG Glucose 131 mg/dL (65-95) H 07/18/20 04:24 Carboxyhemoglobin 0.5 (0.5-1.5) 06/23/20 12:34 Oxyhemoglobin 97.4 % (95.0-99.0) 07/05/20 13:05 FiO2 30.0 07/18/20 04:24 Sodium 135 mmol/L (137-145) L 07/27/20 05:36 Potassium 5.3 mmol/L (3.6-5.0) H 07/27/20 05:36 Chloride 98.5 mmol/L (98-107) 07/27/20 05:36 Carbon Dioxide 21 mmol/L (22-30) L 07/27/20 05:36 Anion Gap 21 mmol/L 07/27/20 05:36 BUN 103 mg/dL (7-17) H 07/27/20 05:36 Creatinine 2.6 mg/dL (0.6-1.2) H 07/27/20 05:36 Estimated GFR 19 ml/min 07/27/20 05:36 BUN/Creatinine Ratio 40 % 07/27/20 05:36 Glucose 113 mg/dL (65-100) H 07/27/20 05:36 POC Glucose 118 (70-105) H 07/27/20 03:36 Lactic Acid 0.60 mmol/L (0.7-2.0) L 06/27/20 05:00 Calcium 8.1 mg/dL (8.4-10.2) L 07/27/20 05:36 Ferritin 223.6 ng/mL (10.0-200.0) H 06/29/20 14:45 Magnesium 2.60 mg/dL (1.7-2.3) H 07/24/20 04:29 Lactate Dehydrogenase 367 units/L (91-180) H 06/29/20 14:45 Total Bilirubin 0.20 mg/dL (0.1-1.2) 07/23/20 19:23 AST 35 units/L (5-40) 07/23/20 19:23 ALT 14 units/L (7-56) 07/23/20 19:23 Alkaline Phosphatase 124 units/L (35-129) 07/23/20 19:23 C-Reactive Protein 3.60 mg/dL (0.00-1.30) H 06/29/20 14:45 Total Creatine Kinase 300 units/L (30-135) H 07/01/20 06:01 CK-MB (CK-2) 2.0 ng/mL (0.0-4.0) 07/01/20 06:01 CK-MB (CK-2) Rel Index 0.6 (0-4) 07/01/20 06:01 Troponin T 0.067 ng/mL (0.00-0.029) H 07/01/20 06:01 Total Protein 6.3 g/dL (6.3-8.2) 07/23/20 19: Albumin 2.2 g/dL (3.9-5) L 07/23/20 19: Albumin/Globulin Ratio 0.5 % 07/23/20 19:23 Triglycerides 142 mg/dL (2-149) 07/01/20 06:01 Cholesterol 137 mg/dL (50-199) 07/01/20 06:01 LDL Cholesterol Direct 62 mg/dL (50-130) 07/01/20 06:01 HDL Cholesterol 61 mg/dL (40-59) H 07/01/20 06:01 Cholesterol/HDL Ratio 2.24 % 07/01/20 06:01 Procalcitonin 0.18 ng/mL (<0.15) 07/14/20 04:55 Arterial Blood Glucose 131 mg/dL (65-95) H 07/18/20 04:24 Arterial Blood Ionized Calcium 5.1 mg/dL (4.6-5.3) 07/18/20 04:24 Urine Color Yellow (Yellow) 06/06/20 04:00 Urine Turbidity Cloudy (Clear) 06/06/20 04:00 Urine pH 5.0 (5.0-7.0) 06/06/20 04:00 Ur Specific [place] 1.012 (1.003-1.030) 06/06/20 04:00 Urine Protein 100 mg/dl mg/dL (Negative) 06/06/20 04:00 Urine Glucose (UA) 50 mg/dL (Negative) 06/06/20 04:00 Urine Ketones Neg mg/dL (Negative) 06/06/20 04:00 Urine Blood Sm (Negative) 06/06/20 04:00 Urine Nitrite Neg (Negative) 06/06/20 04:00 Urine Bilirubin Neg (Negative) 06/06/20 04:00 Urine Urobilinogen < 2.0 mg/dL (<2.0) 06/06/20 04:00 Ur Leukocyte Esterase Neg (Negative) 06/06/20 04:00 Urine WBC (Auto) 15.0 /HPF (0.0-6.0) H 06/06/20 04:00 Urine RBC (Auto) 23.0 /HPF (0.0-6.0) 06/06/20 04:00 U Epithel Cells (Auto) 8.0 /HPF (0-13.0) 06/06/20 04:00 Urine Bacteria (Auto) 2+ /HPF (Negative) 06/06/20 04:00 Amorphous Crystals 1+ 06/06/20 04:00 Hyaline Casts 16 /LPF 06/06/20 04:00 Urine Mucus 2+ /HPF 06/06/20 04:00 Urine Yeast (Budding) 2+ /HPF 06/03/20 Unknown Urine Creatinine 33.3 mg/dL (0.1-20.0) H 07/06/20 13:20 Urine Sodium 21 mmol/L 07/06/20 13:20 Urine Total Protein 196 mg/dL (5-11.8) H 06/06/20 04:00 Nasal Screen MRSA (PCR) Negative (Negative) 06/29/20 08:30 Phenytoin 9.4 ug/mL (10.0-20.0) L 07/24/20 04:29 Coronavirus (PCR) Positive (Negative) A 07/14/20 08:04 Blood Type A POSITIVE 07/05/20 02:30 Antibody Screen Negative 07/05/20 02:30 Crossmatch See Detail 07/05/20 02:30 - Diagnostic Impressions Diagnostic Impressions: Echocardiogram Limited Views 05/29/20 13:52 Transthoracic Echocardiogram Indication: Pulm Embolus BP: 169/76 HR: 85 Conclusions *Limited study for RV size post cardiopulmonar arrest. *RV is only slightly dilated, no significant difference from prior echo 05/13/2020. *Global left ventricular systolic function is at the lower limits of normal. *The estimated ejection fraction is 45-50%. *Mild to moderate concentric left ventricular hypertrophy is observed. *The left and right atria are both mild to moderately dilated. Findings Left Ventricle: The left ventricular chamber size is mildly dilated. Mild to moderate concentric left ventricular hypertrophy is observed. Global left ventricular systolic function is at the lower limits of normal. The estimated ejection fraction is 45-50%. Left Atrium: The left atrium is mild to moderately dilated. Right Ventricle: The right ventricle is slightly dilated. Right Atrium: The right atrium is mild to moderately dilated. Aortic Valve: The aortic valve leaflets are moderately thickened. Mitral Valve: There is mitral annular calcification. The mitral valve leaflets are moderately thickened. Tricuspid Valve: The tricuspid valve leaflets are mildly thickened. Pericardium: A trivial pericardial effusion is visualized. NDUM: 05/29/20 1808 Amended Report Transthoracic Echocardiogram Indication: Pulm Embolus BP: 169/76 HR: 85 Conclusions *Limited study for RV size post cardiopulmonary arrest. *RV is only slightly dilated, no significant difference from prior echo 05/13/2020. *Global left ventricular systolic function is at the lower limits of normal. *The estimated ejection fraction is 45-50%. *Mild to moderate concentric left ventricular hypertrophy is observed. *The left and right atria are both mild to moderately dilated. Findings Left Ventricle: The left ventricular chamber size is mildly dilated. Mild to moderate concentric left ventricular hypertrophy is observed. Global left ventricular systolic function is at the lower limits of normal. The estimated ejection fraction is 45-50%. Left Atrium: The left atrium is mild to moderately dilated. Right Ventricle: The right ventricle is slightly dilated. Right Atrium: The right atrium is mild to moderately dilated. Aortic Valve: The aortic valve leaflets are moderately thickened. Mitral Valve: There is mitral annular calcification. The mitral valve leaflets are moderately thickened. Tricuspid Valve: The tricuspid valve leaflets are mildly thickened. Pericardium: A trivial pericardial effusion is visualized. Helm/IV: Voiding Method Indwelling Catheter IV Catheter Type [Left Forearm INT / Saline Lock ] IV Catheter Type [Left Wrist] INT / Saline Lock IV Catheter Type [Left Upper Peripheral IV arm] IV Catheter Type [Right CVL Internal Jugular] IV Catheter Type [Right Hand] Peripheral IV IV Catheter Type [Right Wrist] Not found on patient IV Catheter Type [Left Hand] INT / Saline Lock IV Catheter Type [Left INT / Saline Lock Antecubital] IV Catheter Type [Right Peripheral IV Forearm] IV Catheter Type [Left Leg] Intra-osseous Active Medications - Current Medications Current Medications: Generic Name Dose Route Start Last Admin Trade Name Freq PRN Reason Stop Dose Admin Acetaminophen 650 mg 06/09/20 10:57 06/29/20 21:18 Tylenol FEEDTUBE 650 mg Q6H PRN Administration Fever >101 Amlodipine Besylate 10 mg 06/02/20 11:00 07/26/20 09:30 Amlodipine PO 10 mg DAILY NELSON Administration Lipase/Protease/Amylase 1 each 05/29/20 13:39 07/07/20 10:[address] 10,500 Unit FEEDTUBE 1 each PRN PRN Administration For Clogged Feeding Tube Carvedilol 25 mg 07/20/20 11:00 07/26/20 22:13 Coreg PO 25 mg Q12HR NELSON Administration Clonidine HCl 0.1 mg 07/26/20 15:00 07/26/20 22:19 Catapres PO Not Given Q8H NELSON Furosemide 60 mg 07/26/20 22:00 07/26/20 22:08 Lasix IV 60 mg BID NELSON Administration Glycopyrrolate 2 mg 06/09/20 14:00 07/26/20 21:02 Glycopyrrolate PO 2 mg TID NELSON Administration Heparin Sodium (Porcine) 5,000 unit 06/30/20 14:00 07/27/20 06:07 Heparin SUB-Q 5,000 unit Q8HR NELSON Administration Hydralazine HCl 100 mg 07/14/20 14:00 07/26/20 21:02 Apresoline PO 100 mg TID NELSON Administration Hydrophilic Ointment 1 applic 05/28/20 13:49 Vaseline Lip Therapy TP Q2HR PRN Dry Lips Phenytoin 150 mg/ Sodium 103 mls @ 408 mls/hr 07/23/20 22:00 07/27/20 06:06 Chloride IV 408 mls/hr Q8HR NELSON Administration Norepinephrine 4 mg in 250 mls @ 7.5 mls/hr 07/23/20 20:00 07/24/20 07:15 Levophed Drip 4 Mg/Ns 250 Ml IV 0 mcg/min TITR NELSON 0 mls/hr Titration Protocol 2 MCG/MIN Sodium Chloride 1,000 mls @ 75 mls/hr 07/24/20 09:00 07/24/20 22:01 Nacl 0.9% 1000 Ml IV 75 mls/hr DIRECT NELSON Administration Dopamine HCl/Dextrose 800 mg in 250 mls @ 4.613 mls/hr 07/24/20 11:30 Intropin Drip 800 Mg/D5w 250 Ml IV TITR NELSON Protocol 2 MCG/KG/MIN Insulin Glargine 10 units 06/08/20 22:00 07/26/20 22:18 Lantus SUB-Q 10 units QHS NELSON Administration Insulin Human Lispro 0 unit 05/29/20 18:00 07/27/20 06:24 Humalog SUB-Q Not Given Q6H [facility] Protocol Labetalol HCl 20 mg 06/03/20 09:00 07/21/20 05:56 Labetalol IV 20 mg Q4H PRN Administration HYPERTENSION Lansoprazole 30 mg 06/05/20 22:00 07/26/20 22:08 Prevacid Solutab FEEDTUBE 30 mg BID NELSON Administration Levetiracetam 1,000 mg 07/21/20 22:00 07/26/20 22:18 Keppra PO 1,000 mg BID NELSON Administration Minoxidil 5 mg 07/21/20 10:00 07/26/20 22:19 Loniten PO 5 mg BID NELSON Administration Multi-Ingred Cream/Lotion/Oil/Oint 1 applic 05/28/20 13:49 Artificial Tears Ophth Oint OU Q4HR PRN Dry Eye(s) Ondansetron HCl 4 mg 06/02/20 09:00 06/09/20 16:48 Zofran IV 4 mg Q8H PRN Administration Nausea And Vomiting Senna 17.6 mg 06/03/20 10:00 07/26/20 22:14 Senokot FEEDTUBE Not Given BID NELSON Simple Syrup 15 ml 05/29/20 13:39 Simple Syrup FEEDTUBE PRN PRN Hypoglycemia Simple Syrup 30 ml 05/29/20 13:39 Simple Syrup FEEDTUBE PRN PRN Hypoglycemia Sodium Bicarbonate 325 mg 05/29/20 13:39 07/07/20 10:36 Sodium Bicarbonate FEEDTUBE 325 mg PRN PRN Administration For Clogged Feeding Tube Sodium Chloride 10 ml 05/28/20 22:00 07/26/20 22:14 Sodium Chloride Flush Syringe 10 Ml IV 10 ml BID NELSON Administration Sodium Chloride 10 ml 05/28/20 19:08 06/16/20 17:50 Sodium Chloride Flush Syringe 10 Ml IV 10 ml PRN PRN Administration LINE FLUSH Nutrition/Malnutrition Assess - Dietary Evaluation Nutrition/Malnutrition Findings: Nutrition Notes Start: 05/29/20 11:45 Freq: Status: Active Protocol: Document 07/20/20 11:28 MK (Rec: 07/20/20 11:32 MK [id number]) Nutrition Notes Initial or Follow up Reassessment Current Diagnosis Acute Kidney Injury,Diabetes, Heart Failure,Respiratory Failure Other Pertinent Diagnosis COVID-19 (+), Pulmonary edema, dysphagia Current Diet Nepro at 40 ml/hr Labs/Tests BUN 86 Cr 1.7 Pertinent Medications Reviewed Height 5 ft 6 in Weight 123 kg [place] Body Weight (kg) 59.09 BMI 43.7 Weight Status Morbidly Obese Subjective/Other Information FU for TF tolerance. TF running at goal, pt tolerating . Pt unable to get PEG placed due to COVID test result. Percent of energy/protein needs met: 100%/53% Burn Absent Trauma Absent Current % PO Negligible Minimum of two criteria No physical signs of malnutrition Fluid Accumulation Mild (non-severe) #1 Nutrition Diagnosis Inadequate oral intake Diagnosis Progress(for reassessment Continues documentation) Is patient on ventilator? Yes Is Patient Ambulatory and/or Out of Bed No REE-([place]-confined to bed) [phone] Kcal/Kg value to use for calculation 13 Approximate Energy Requirements Using 1599 kcal/Kg Calculation Used for Recommendations Kcal/kg Additional Notes Protein needs up to 148g (up to 2.5g/kg IBW) Fluid needs 1ml/kcal Nutrition Intervention Change Diet Order: Continue Nutrition Support: Nepro at 40ml/hr Flush 150ml q4h Kcal 1,728 Protein (gm) 78 Fluid (mL) 697 Goal #1 TF tolerance Goal #2 TF to meet at least 65%-70% energy and 80% protein needs Anticipated Discharge Needs: Unable to determine at this time Follow-Up By: 07/27/20 Additional Comments FU for TF tolerance
[2020-07-27] MEDS: levETIRAcetam 500 MG/5 ML ORAL LIQD PO SCH ×2 (09:35→21:53)
[2020-07-27] MEDS: FUROSEMIDE 40 MG/4 ML INJ IV SCH (09:35)
[2020-07-27] MEDS: MINOXIDIL 2.5 MG TAB PO SCH ×2 (09:35→21:53)
[2020-07-27] MEDS: carvediloL 25 MG TAB PO SCH ×2 (09:36→21:55)
[2020-07-27] MEDS: LANSOPRAZOLE 30 MG SOLUTAB FEEDTUBE SCH ×2 (09:38→21:56)
[2020-07-27] MEDS: amLODIPine 10 MG TAB PO SCH (09:44)
[2020-07-27] MEDS ORDERED: ALBUMIN HUMAN 25% (25 GM/100 ML) INJ IV ONE (10:00)
--- NOTE | 2020-07-27 10:29 | Progress Note ---
Assessment and Plan - Patient Problems (1) Acute kidney injury (AVANI) with acute tubular necrosis (ATN) Current Visit: Yes Status: Acute Plan to address problem: Kidney function had been worsening. Patient had poor diuretic response to Lasix IV. Will start on Bumex drip. If she does not respond to the ER will need to discuss with family about dialysis. (2) Acute hypoxemic respiratory failure Current Visit: Yes Status: Acute Plan to address problem: Being managed by pulmonary. S/p Extubation 06/12. Back on respirator. Continue management by pulmonary/critical care (3) Cardiac arrest Current Visit: Yes Status: Acute Plan to address problem: Patient is improving (4) Metabolic encephalopathy Current Visit: Yes Status: Acute Plan to address problem: Mental status is improving (5) Pneumonia due to COVID-19 virus Current Visit: Yes Status: Acute Plan to address problem: Patient has completed 5 days of Remdesevir. Completed course of steroids. (6) Cardiomyopathy Current Visit: No Status: Acute Qualifiers: Cardiomyopathy type: unspecified Qualified Code(s): I42.9 - Cardiomyopathy, unspecified Plan to address problem: Patient has peripheral edema. Will start Bumex drip. Follow-up electrolytes a nd renal function (7) Hyperglycemia due to type 2 diabetes mellitus Current Visit: No Status: Acute Qualifiers: Diabetes mellitus long term care pharmacist insulin use: without long term care pharmacist use Qualified Code(s): E11.65 - Type 2 diabetes mellitus with hyperglycemia Plan to address problem: Blood sugar management by primary attending Subjective Date of service: 07/27/20 Principal diagnosis: Ac hypoxemic resp failure; COVID-19; pneumonia; CHF; Pulm HTN; OHS; DM II Interval history: Chart reviewed. I did not do physical exam at the bedside due to PPE conservation with the current COVID-19 pandemic, discussed with RN on the medical floor patient on FiO2 30%. Still with poor urine output on Lasix 60 mg every 12 hours and albumin infusion. Objective - Exam Narrative Exam: I did not do physical exam at the bedside due to PPE conservation with the current COVID-19 pandemic - Vital Signs Vital signs: Vital Signs - 12hr 07/26/20 07/26/20 07/27/20 23:01 23:35 00:00 Temperature 97.6 F Pulse Rate 59 L 58 L 59 L Pulse Rate [ 57 L From Monitor] Respiratory 20 18 20 Rate Blood Pressure 191/53 191/53 157/83 O2 Sat by Pulse 96 97 97 Oximetry 07/27/20 07/27/20 07/27/20 01:00 02:00 03:00 Temperature Pulse Rate 59 L 59 L 58 L Pulse Rate [ From Monitor] Respiratory 20 21 17 Rate Blood Pressure 167/71 164/74 162/83 O2 Sat by Pulse 97 97 97 Oximetry 07/27/20 07/27/20 07/27/20 04:00 05:00 05:26 Temperature 97.6 F Pulse Rate 59 L 57 L 59 L Pulse Rate [ 59 L From Monitor] Respiratory 21 20 Rate Blood Pressure 167/74 162/57 162/57 O2 Sat by Pulse 97 96 95 Oximetry 07/27/20 07/27/20 07/27/20 06:00 07:00 07:34 Temperature Pulse Rate 58 L 59 L 59 L Pulse Rate [ From Monitor] Respiratory 19 20 Rate Blood Pressure 163/59 162/64 162/64 O2 Sat by Pulse 95 96 Oximetry 07/27/20 07/27/20 07/27/20 08:00 08:34 08:37 Temperature 97.6 F Pulse Rate 59 L 59 L 60 Pulse Rate [ 59 L From Monitor] Respiratory 22 20 Rate Blood Pressure 162/64 162/64 162/64 O2 Sat by Pulse 95 96 95 Oximetry 07/27/20 07/27/20 09:36 09:44 Temperature Pulse Rate 58 L 58 L Pulse Rate [ From Monitor] Respiratory Rate Blood Pressure 150/45 150/45 O2 Sat by Pulse Oximetry - Lab 07/27/20 05:36 07/27/20 05:36 Most recent lab results ABG pH 7.382 (7.320-7.450) 07/18/20 04:24 ABG pCO2 47.0 mm Hg 07/05/20 13:05 ABG pO2 78.3 mm Hg (80.0-90.0) L 07/05/20 13:05 ABG HCO3 23.4 mmol/L (20.0-26.0) 07/05/20 13:05 ABG O2 Saturation 96.1 % (95.0-99.0) 07/05/20 13:05 Calcium 8.1 mg/dL (8.4-10.2) L 07/27/20 05:36 Magnesium 2.60 mg/dL (1.7-2.3) H 07/24/20 04:29 Urine Creatinine 33.3 mg/dL (0.1-20.0) H 07/06/20 13:20 Urine Sodium 21 mmol/L 07/06/20 13:20 Urine Total Protein 196 mg/dL (5-11.8) H 06/06/20 04:00 Medications & Allergies - Medications Allergies/Adverse Reactions: Allergies No Known Allergies Allergy (Verified 01/21/20 12:28) Home Medications: Home Medications Medication Instructions Recorded Confirmed Last Taken Type AtorvaSTATin [Lipitor] 20 mg PO QHS 05/12/20 05/29/20 Unknown History lisinopriL [Zestril TAB] 40 mg PO QDAY 05/12/20 05/29/20 Unknown History metFORMIN [Glucophage] 850 mg PO BID 05/12/20 05/29/20 Unknown History Acetaminophen [Acetaminophen TAB] 650 mg PO Q4H PRN tablet 05/13/20 05/29/20 Unknown Rx Dicyclomine [Bentyl] 20 mg PO BID #20 tablet 05/13/20 05/29/20 Unknown Rx Famotidine [Pepcid] 20 mg PO BID #30 tablet 05/13/20 05/29/20 Unknown Rx carvediloL [Coreg] 6.25 mg PO BID #60 05/13/20 05/29/20 Unknown Rx Active Medications: Generic Name Dose Route Start Last Admin Trade Name Freq PRN Reason Stop Dose Admin Acetaminophen 650 mg 06/09/20 10:57 06/29/20 21:18 Tylenol FEEDTUBE 650 mg Q6H PRN Administration Fever >101 Amlodipine Besylate 10 mg 06/02/20 11:00 07/27/20 09:44 Amlodipine PO 10 mg DAILY NELSON Administration Lipase/Protease/Amylase 1 each 05/29/20 13:39 07/07/20 10:[address] 10,500 Unit FEEDTUBE 1 each PRN PRN Administration For Clogged Feeding Tube Carvedilol 25 mg 07/20/20 11:00 07/27/20 09:36 Coreg PO Not Given Q12HR NELSON Clonidine HCl 0.1 mg 07/26/20 15:00 07/27/20 07:34 Catapres PO 0.1 mg Q8H NELSON Administration Furosemide 60 mg 07/26/20 22:00 07/27/20 09:35 Lasix IV 60 mg BID NELSON Administration Glycopyrrolate 2 mg 06/09/20 14:00 07/27/20 08:36 Glycopyrrolate PO 2 mg TID NELSON Administration Heparin Sodium (Porcine) 5,000 unit 06/30/20 14:00 07/27/20 06:07 Heparin SUB-Q 5,000 unit Q8HR NELSON Administration Hydralazine HCl 100 mg 07/14/20 14:00 07/27/20 08:35 Apresoline PO 100 mg TID NELSON Administration Hydrophilic Ointment 1 applic 05/28/20 13:49 Vaseline Lip Therapy TP Q2HR PRN Dry Lips Phenytoin 150 mg/ Sodium 103 mls @ 408 mls/hr 07/23/20 22:00 07/27/20 06:06 Chloride IV 408 mls/hr Q8HR NELSON Administration Norepinephrine 4 mg in 250 mls @ 7.5 mls/hr 07/23/20 20:00 07/24/20 07:15 Levophed Drip 4 Mg/Ns 250 Ml IV 0 mcg/min TITR NELSON 0 mls/hr Titration Protocol 2 MCG/MIN Dopamine HCl/Dextrose 800 mg in 250 mls @ 4.613 mls/hr 07/24/20 11:30 Intropin Drip 800 Mg/D5w 250 Ml IV TITR NELSON Protocol 2 MCG/KG/MIN Insulin Glargine 10 units 06/08/20 22:00 07/26/20 22:18 Lantus SUB-Q 10 units QHS NELSON Administration Insulin Human Lispro 0 unit 05/29/20 18:00 07/27/20 06:24 Humalog SUB-Q Not Given Q6H [facility] Protocol Labetalol HCl 20 mg 06/03/20 09:00 07/21/20 05:56 Labetalol IV 20 mg Q4H PRN Administration HYPERTENSION Lansoprazole 30 mg 06/05/20 22:00 07/27/20 09:38 Prevacid Solutab FEEDTUBE 30 mg BID NELSON Administration Levetiracetam 1,000 mg 07/21/20 22:00 07/27/20 09:35 Keppra PO 1,000 mg BID NELSON Administration Minoxidil 5 mg 07/21/20 10:00 07/27/20 09:35 Loniten PO 5 mg BID NELSON Administration Multi-Ingred Cream/Lotion/Oil/Oint 1 applic 05/28/20 13:49 Artificial Tears Ophth Oint OU Q4HR PRN Dry Eye(s) Ondansetron HCl 4 mg 06/02/20 09:00 06/09/20 16:48 Zofran IV 4 mg Q8H PRN Administration Nausea And Vomiting Senna 17.6 mg 06/03/20 10:00 07/26/20 22:14 Senokot FEEDTUBE Not Given BID NELSON Simple Syrup 15 ml 05/29/20 13:39 Simple Syrup FEEDTUBE PRN PRN Hypoglycemia Simple Syrup 30 ml 05/29/20 13:39 Simple Syrup FEEDTUBE PRN PRN Hypoglycemia Sodium Bicarbonate 325 mg 05/29/20 13:39 07/07/20 10:36 Sodium Bicarbonate FEEDTUBE 325 mg PRN PRN Administration For Clogged Feeding Tube Sodium Chloride 10 ml 05/28/20 22:00 07/27/20 09:45 Sodium Chloride Flush Syringe 10 Ml IV 10 ml BID NELSON Administration Sodium Chloride 10 ml 05/28/20 19:08 06/16/20 17:50 Sodium Chloride Flush Syringe 10 Ml IV 10 ml PRN PRN Administration LINE FLUSH
[2020-07-27] MEDS: SENNOSIDES ORAL LIQD 8.8 MG/5 ML ORAL LIQD FEEDTUBE SCH ×2 (10:36→21:53)
[2020-07-27] MEDS: BUMETANIDE IV SCH ×2 (11:25→17:47)
--- NOTE | 2020-07-27 11:50 | XRay Report ---
ABDOMEN 1 VIEW(S) INDICATION / CLINICAL INFORMATION: ngt placement. COMPARISON: None available. FINDINGS: TUBES / LINES: Satisfactory NG tube placement. BOWEL GAS PATTERN: No significant abnormality. ADDITIONAL FINDINGS: No significant additional findings. IMPRESSION: 1. No significant abnormality. Signer Name: Kendall Mcbride MD Signed: 07/27/2020 11:45 AM Workstation Name: [employer]
[2020-07-27] MEDS: INSULIN GLARGINE 100 UNITS/ML SUB-Q SCH (21:55)
[2020-07-28] MEDS: SODIUM CHLORIDE 0.9% IV SCH ×3 (00:07→05:43)
[2020-07-28] MEDS: BUMETANIDE IV SCH ×2 (00:07→05:43)
[2020-07-28] MEDS: INSULIN LISPRO 100 UNIT/ML VIAL 3 mL SUB-Q SCH ×4 (00:07→17:20)
[2020-07-28] MEDS: PHENYTOIN IV SCH (05:43)
[2020-07-28] MEDS: HEPARIN 5,000 UNIT/1 ML VIAL SUB-Q SCH ×3 (05:43→21:42)
[2020-07-28 06:22] LABS: Hematocrit 22.2 % (30.3-42.9); Hemoglobin 7.3 gm/dl (10.1-14.3); Mean Corpuscular HGB Conc 33 % (30-34); Mean Corpuscular Volume 89 fl (79-97); Platelet Count 433 K/mm3 (140-440); Red Cell Distribution Width 17.3 % (13.2-15.2)
[2020-07-28 06:23] LABS: Basophils # (Auto) 0.1 K/mm3 (0.0-0.1); Basophils % (Auto) 0.6 % (0.0-1.8); Eosinophils # (Auto) 0.3 K/mm3 (0.0-0.4); Eosinophils % (Auto) 3.3 % (0.0-4.3); Lymphocytes # (Auto) 0.7 K/mm3 (1.2-5.4); Lymphocytes % (Auto) 8.7 % (13.4-35.0); Monocytes # (Auto) 0.7 K/mm3 (0.0-0.8); Monocytes % (Auto) 8.3 % (0.0-7.3)
[2020-07-28] MEDS: cloNIDine 0.1 MG TAB PO SCH ×3 (06:44→23:57)
[2020-07-28 06:48] LABS: Calcium 8.2 mg/dL (8.4-10.2)
[2020-07-28] MEDS: GLYCOPYRROLATE 2 MG TAB PO SCH ×3 (08:43→21:42)
[2020-07-28] MEDS: hydrALAZINE 100 MG TAB PO SCH ×3 (08:45→21:42)
[2020-07-28] MEDS: amLODIPine 10 MG TAB PO SCH (09:42)
[2020-07-28] MEDS: levETIRAcetam 500 MG/5 ML ORAL LIQD PO SCH ×2 (09:43→21:05)
[2020-07-28] MEDS: LANSOPRAZOLE 30 MG SOLUTAB FEEDTUBE SCH ×2 (09:44→21:06)
[2020-07-28] MEDS: SENNOSIDES ORAL LIQD 8.8 MG/5 ML ORAL LIQD FEEDTUBE SCH ×2 (09:44→21:55)
[2020-07-28] MEDS: MINOXIDIL 2.5 MG TAB PO SCH ×2 (09:45→21:55)
[2020-07-28] MEDS: carvediloL 25 MG TAB PO SCH ×2 (10:31→21:07)
--- NOTE | 2020-07-28 10:33 | Progress Note ---
Assessment and Plan - Patient Problems (1) Acute kidney injury (AVANI) with acute tubular necrosis (ATN) Current Visit: Yes Status: Acute Plan to address problem: Kidney function had been worsening. Patient had poor diuretic response to Lasix IV. Patient is also not responded to Bumex and infusions with albumin infusion. Will need to start dialysis. Called patient's daughters, left message to call me back (2) Acute hypoxemic respiratory failure Current Visit: Yes Status: Acute Plan to address problem: Being managed by pulmonary. S/p Extubation 06/12. Back on respirator. Continue management by pulmonary/critical care (3) Cardiac arrest Current Visit: Yes Status: Acute Plan to address problem: Patient is improving (4) Metabolic encephalopathy Current Visit: Yes Status: Acute Plan to address problem: Mental status is improving (5) Pneumonia due to COVID-19 virus Current Visit: Yes Status: Acute Plan to address problem: Patient has completed 5 days of Remdesevir. Completed course of steroids. (6) Cardiomyopathy Current Visit: No Status: Acute Qualifiers: Cardiomyopathy type: unspecified Qualified Code(s): I42.9 - Cardiomyopathy, unspecified Plan to address problem: Patient has peripheral edema. Has not responded to Bumex infusion.we will need to discuss about starting dialysis follow-up electrolytes and renal function (7) Hyperglycemia due to type 2 diabetes mellitus Current Visit: No Status: Acute Qualifiers: Diabetes mellitus correction insulin use: without decorating consultant use Qualified Code(s): E11.65 - Type 2 diabetes mellitus with hyperglycemia Plan to address problem: Blood sugar management by primary attending Subjective Date of service: 07/28/20 Principal diagnosis: Ac hypoxemic resp failure; COVID-19; pneumonia; CHF; Pulm HTN; OHS; DM II Interval history: Chart reviewed. I did not do physical exam at the bedside due to PPE co nservation with the current COVID-19 pandemic. Patient is still oliguric despite scheduled Bumex drip and albumin infusions. Will need to discuss about initiating dialysis. I called both daughters listed on the face sheet and left messages for them to call me back. Objective - Exam Narrative Exam: I did not do physical exam at the bedside due to PPE conservation with the current COVID-19 pandemic - Vital Signs Vital signs: Vital Signs - 12hr 07/27/20 07/27/20 07/27/20 23:00 23:05 23:16 Temperature Pulse Rate 63 65 65 Pulse Rate [ From Monitor] Respiratory 20 21 Rate Blood Pressure 183/50 183/50 183/50 O2 Sat by Pulse 95 94 Oximetry 07/27/20 07/28/20 07/28/20 23:55 00:00 00:14 Temperature 98.4 F Pulse Rate 65 66 Pulse Rate [ 65 From Monitor] Respiratory 20 Rate Blood Pressure 178/51 168/51 O2 Sat by Pulse 96 95 Oximetry 07/28/20 07/28/20 07/28/20 01:00 02:00 03:01 Temperature Pulse Rate 67 66 67 Pulse Rate [ From Monitor] Respiratory 18 19 22 Rate Blood Pressure 172/62 172/58 182/50 O2 Sat by Pulse 96 94 95 Oximetry 07/28/20 07/28/20 07/28/20 04:00 04:35 05:00 Temperature 98.1 F Pulse Rate 67 66 66 Pulse Rate [ 67 From Monitor] Respiratory 22 22 Rate Blood Pressure 172/48 172/48 169/49 O2 Sat by Pulse 97 97 96 Oximetry 07/28/20 07/28/20 07/28/20 06:01 06:44 07:00 Temperature Pulse Rate 64 66 66 Pulse Rate [ From Monitor] Respiratory 18 22 Rate Blood Pressure 164/41 164/41 160/46 O2 Sat by Pulse 96 96 Oximetry 07/28/20 07/28/20 07/28/20 07:36 07:39 08:00 Temperature Pulse Rate 65 66 65 Pulse Rate [ 65 From Monitor] Respiratory 23 22 Rate Blood Pressure 171/51 171/51 O2 Sat by Pulse 97 95 94 Oximetry 07/28/20 07/28/20 07/28/20 08:01 09:00 09:42 Temperature Pulse Rate 67 65 65 Pulse Rate [ From Monitor] Respiratory 28 H 29 H Rate Blood Pressure 154/31 150/40 150/40 O2 Sat by Pulse 94 94 Oximetry 07/28/20 10:00 Temperature Pulse Rate 63 Pulse Rate [ From Monitor] Respiratory 12 Rate Blood Pressure 153/37 O2 Sat by Pulse 93 Oximetry - Lab 07/28/20 04:30 07/28/20 04:30 Most recent lab results ABG pH 7.382 (7.320-7.450) 07/18/20 04:24 ABG pCO2 47.0 mm Hg 07/05/20 13:05 ABG pO2 78.3 mm Hg (80.0-90.0) L 07/05/20 13:05 ABG HCO3 23.4 mmol/L (20.0-26.0) 07/05/20 13:05 ABG O2 Saturation 96.1 % (95.0-99.0) 07/05/20 13:05 Calcium 8.2 mg/dL (8.4-10.2) L 07/28/20 04:30 Magnesium 2.70 mg/dL (1.7-2.3) H 07/28/20 04:30 Urine Creatinine 33.3 mg/dL (0.1-20.0) H 07/06/20 13:20 Urine Sodium 21 mmol/L 07/06/20 13:20 Urine Total Protein 196 mg/dL (5-11.8) H 06/06/20 04:00 Medications & Allergies - Medications Allergies/Adverse Reactions: Allergies No Known Allergies Allergy (Verified 01/21/20 12:28) Home Medications: Home Medications Medication Instructions Recorded Confirmed Last Taken Type AtorvaSTATin [Lipitor] 20 mg PO QHS 05/12/20 05/29/20 Unknown History lisinopriL [Zestril TAB] 40 mg PO QDAY 05/12/20 05/29/20 Unknown History metFORMIN [Glucophage] 850 mg PO BID 05/12/20 05/29/20 Unknown History Acetaminophen [Acetaminophen TAB] 650 mg PO Q4H PRN tablet 05/13/20 05/29/20 Unknown Rx Dicyclomine [Bentyl] 20 mg PO BID #20 tablet 05/13/20 05/29/20 Unknown Rx Famotidine [Pepcid] 20 mg PO BID #30 tablet 05/13/20 05/29/20 Unknown Rx carvediloL [Coreg] 6.25 mg PO BID #60 05/13/20 05/29/20 Unknown Rx Active Medications: Generic Name Dose Route Start Last Admin Trade Name Freq PRN Reason Stop Dose Admin Acetaminophen 650 mg 06/09/20 10:57 06/29/20 21:18 Tylenol FEEDTUBE 650 mg Q6H PRN Administration Fever >101 Amlodipine Besylate 10 mg 06/02/20 11:00 07/28/20 09:42 Amlodipine PO 10 mg DAILY NELSON Administration Lipase/Protease/Amylase 1 each 05/29/20 13:39 07/07/20 10:[address] 10,500 Unit FEEDTUBE 1 each PRN PRN Administration For Clogged Feeding Tube Carvedilol 25 mg 07/20/20 11:00 07/27/20 21:55 Coreg PO 25 mg Q12HR NELSON Administration Clonidine HCl 0.1 mg 07/26/20 15:00 07/28/20 06:44 Catapres PO 0.1 mg Q8H NELSON Administration Glycopyrrolate 2 mg 06/09/20 14:00 07/28/20 08:43 Glycopyrrolate PO 2 mg TID NELSON Administration Heparin Sodium (Porcine) 5,000 unit 06/30/20 14:00 07/28/20 05:43 Heparin SUB-Q 5,000 unit Q8HR NELSON Administration Hydralazine HCl 100 mg 07/14/20 14:00 07/28/20 08:45 Apresoline PO 100 mg TID NELSON Administration Hydrophilic Ointment 1 applic 05/28/20 13:49 Vaseline Lip Therapy TP Q2HR PRN Dry Lips Norepinephrine 4 mg in 250 mls @ 7.5 mls/hr 07/23/20 20:00 07/24/20 07:15 Levophed Drip 4 Mg/Ns 250 Ml IV 0 mcg/min TITR NELSON 0 mls/hr Titration Protocol 2 MCG/MIN Dopamine HCl/Dextrose 800 mg in 250 mls @ 4.613 mls/hr 07/24/20 11:30 Intropin Drip 800 Mg/D5w 250 Ml IV TITR NELSON Protocol 2 MCG/KG/MIN Bumetanide 6 mg/ Sodium 60 mls @ 10 mls/hr 07/27/20 12:00 07/28/20 05:43 Chloride IV 10 mls/hr Q6HR NELSON Administration Insulin Glargine 10 units 06/08/20 22:00 07/27/20 21:55 Lantus SUB-Q 10 units QHS NELSON Administration Insulin Human Lispro 0 unit 05/29/20 18:00 07/28/20 05:46 Humalog SUB-Q Not Given Q6H [facility] Protocol Labetalol HCl 20 mg 06/03/20 09:00 07/21/20 05:56 Labetalol IV 20 mg Q4H PRN Administration HYPERTENSION Lansoprazole 30 mg 06/05/20 22:00 07/28/20 09:44 Prevacid Solutab FEEDTUBE 30 mg BID NELSON Administration Levetiracetam 1,000 mg 07/21/20 22:00 07/28/20 09:43 Keppra PO 1,000 mg BID NELSON Administration Minoxidil 5 mg 07/21/20 10:00 07/28/20 09:45 Loniten PO 5 mg BID NELSON Administration Multi-Ingred Cream/Lotion/Oil/Oint 1 applic 05/28/20 13:49 Artificial Tears Ophth Oint OU Q4HR PRN Dry Eye(s) Ondansetron HCl 4 mg 06/02/20 09:00 06/09/20 16:48 Zofran IV 4 mg Q8H PRN Administration Nausea And Vomiting Phenytoin 150 mg 07/28/20 14:00 Dilantin FEEDTUBE Q8HR NELSON Senna 17.6 mg 06/03/20 10:00 07/28/20 09:44 Senokot FEEDTUBE 17.6 mg BID NELSON Administration Simple Syrup 15 ml 05/29/20 13:39 Simple Syrup FEEDTUBE PRN PRN Hypoglycemia Simple Syrup 30 ml 05/29/20 13:39 Simple Syrup FEEDTUBE PRN PRN Hypoglycemia Sodium Bicarbonate 325 mg 05/29/20 13:39 07/07/20 10:36 Sodium Bicarbonate FEEDTUBE 325 mg PRN PRN Administration For Clogged Feeding Tube Sodium Chloride 10 ml 05/28/20 22:00 07/28/20 09:47 Sodium Chloride Flush Syringe 10 Ml IV 10 ml BID NELSON Administration Sodium Chloride 10 ml 05/28/20 19:08 06/16/20 17:50 Sodium Chloride Flush Syringe 10 Ml IV 10 ml PRN PRN Administration LINE FLUSH
--- NOTE | 2020-07-28 12:13 | Progress Note ---
Assessment and Plan Acute hypoxemic respiratory failure on MVS Coronavirus-19 infection. Bilateral pulmonary infiltrates, bilateral pneumonia plus likely element of Pulmonary edema. Bilateral pulmonary edema. Bilateral pleural effusions. History of congestive heart failure. Morbid obesity. History of pulmonary hypertension. History of hypertension. Diabetes. Obesity hypoventilation syndrome. Elevated serum inflammatory markers to include D-dimers and LDH levels. Hyperkalemia at presentation. Metabolic acidosis. Oropharyngeal dysphagia. (AMS remains rate limiting factor to safe extubation; she will need a tracheo stomy) - tentatively to begin HD/UF for toxin and volume clearance - prn CXR's and ABG's at this point - repeat EEG next per neurology rec's - AED's per neurology ([facility] [employer] [facility]) - surgery evaluation ongoing for trach +/- PEG (await negative COVID PCR result) - continue care as below otherwise; - GI evaluation ongoing - continue Modafinil re: lethargy / somnolence - continue daytime PSV trials as tolerated - Daily SAT and SBT assessment as tolerated - continue to wean supplemental oxygen for target O2 sat's > 90% acutely - VAP bundle addressed - continue lung protective strategies - continue bronchodilators with pulmonary hygiene per RT - wean per pulmonary driven protocols otherwise - continue accuchecks resumed with glycemic control per SSI (While critically ill target blood glucose of 140-180 mg/dL; avoid hypoglycemia) - sedation prn for target RASS 0 to -1 - continue to avoid benzodiazepine's, reduce the possibility of delirium - AB's per ID rec's (following clinically of AB's at this time) - continue enteral nutrition at goal rate as tolerated - AED's per neurology - prn analgesia per CPOT score - Maintenance of sleep-wake cycle, avoid delirium - continue enteral nutritional support at goal rate as tolerated - G.I. & VTE prophylaxis with heparin & famotidine - PT/OT/ROM exercises - continue mobility protocols for pressure ulcer prophylaxis - Monitor hemodynamics closely - continue other care per attending / other consultants - discharge planning ongoing concurrently (LTAC evaluation is appropriate) .... Re-evaluate in am & prn CONDITION: CRITICAL PROGNOSIS: GUARDED CODE STATUS: FULL CODE The high probability of a clinically significant, sudden or life-threatening deterioration of the [respiratory, cardiovascular, GI & neurologic] system(s) required my full and direct attention, intervention and personal management. The aggregate critical care time was [35] minutes without overlap. Time includes spent on; [x] Data Review and interpretation [x] Patient assessment and monitoring of vital signs [x] Documentation [x] Medication orders and management Subjective Date of service: 07/28/20 Principal diagnosis: Ac hypoxemic resp failure; COVID-19; pneumonia; CHF; Pulm HTN; OHS; DM II Interval history: Patient is seen today for: Ac hypoxemic resp failure; Coronavirus-19 infection; pneumonia; Pulmonary edema; Bilateral pleural effusions; CHF; Morbid obesity; pulmonary hypertension; OHS; DM II Seen and examined at bedside; 24hour events reviewed; nursing and respiratory care staff consulted; no adverse overnight events reported to me; resting peacefully in bed; remains on MVS; AMS is persistent; to tentatively begin dialysis once contact made with [facility]; no new issues otherwise Objective Vital Signs - 12hr 07/28/20 07/28/20 07/28/20 00:14 01:00 02:00 Temperature Pulse Rate 66 67 66 Pulse Rate [ From Monitor] Respiratory 18 19 Rate Blood Pressure 168/51 172/62 172/58 O2 Sat by Pulse 95 96 94 Oximetry 07/28/20 07/28/20 07/28/20 03:01 04:00 04:35 Temperature 98.1 F Pulse Rate 67 67 66 Pulse Rate [ 67 From Monitor] Respiratory 22 22 Rate Blood Pressure 182/50 172/48 172/48 O2 Sat by Pulse 95 97 97 Oximetry 07/28/20 07/28/20 07/28/20 05:00 06:01 06:44 Temperature Pulse Rate 66 64 66 Pulse Rate [ From Monitor] Respiratory 22 18 Rate Blood Pressure 169/49 164/41 164/41 O2 Sat by Pulse 96 96 Oximetry 07/28/20 07/28/20 07/28/20 07:00 07:36 07:39 Temperature Pulse Rate 66 65 66 Pulse Rate [ From Monitor] Respiratory 22 23 Rate Blood Pressure 160/46 171/51 171/51 O2 Sat by Pulse 96 97 95 Oximetry 07/28/20 07/28/20 07/28/20 08:00 08:01 09:00 Temperature Pulse Rate 65 67 65 Pulse Rate [ 65 From Monitor] Respiratory 22 28 H 29 H Rate Blood Pressure 154/31 150/40 O2 Sat by Pulse 94 94 94 Oximetry 10/07/28/20 07/28/20 09:42 10:00 11:53 Temperature Pulse Rate 65 63 62 Pulse Rate [ From Monitor] Respiratory 12 29 H Rate Blood Pressure 150/40 153/37 156/40 O2 Sat by Pulse 93 95 Oximetry Constitutional: no acute distress, other (elderly looking female with mildly increased resp effort at rest) Eyes: non-icteric ENT: oropharynx dry, other (ETT 23-24 cm AYAN) Neck: supple, no lymphadenopathy, no JVD Effort: mildly labored Ascultation: Bilateral: diminished breath sounds, rhonchi Percussion: Bilateral: not dull Cardiovascular: regular rate and rhythm, other (S1,S2) Gastrointestinal: normoactive bowel sounds, soft, non-tender, non-distended Integumentary: normal Extremities: no cyanosis, pink and warm, pulses normal, no ischemia or petechiae, edema (trace) Neurologic: pupils equal and round, unable to assess, other (lethargic to obtunded) Psychiatric: other (unable to assess re: AMS) CBC and BMP: 07/28/20 04:30 07/28/20 04:30 ABG, PT/INR, D-dimer: ABG ABG pH 7.382 (7.320-7.450) 07/18/20 04:24 POC ABG pCO2 44.1 mmHg (32.0-48.0) 07/18/20 04:24 ABG pCO2 47.0 mm Hg 07/05/20 13:05 POC ABG pO2 86.8 mmHg (83-108) 07/18/20 04:24 ABG pO2 78.3 mm Hg (80.0-90.0) L 07/05/20 13:05 POC ABG HCO3 25.6 07/18/20 04:24 ABG O2 Saturation 96.1 % (95.0-99.0) 07/05/20 13:05 PT/INR, D-dimer PT 14.2 Sec. (12.2-14.9) 05/29/20 15:10 INR 1.08 (0.87-1.13) 05/29/20 15:10 D-Dimer 2310.15 ng/mlDDU (0-234) H 06/29/20 14:45 Abnormal lab findings: Abnormal Labs 05/28/20 05/28/2005/28/20 13:29 13:47 13:47 WBC RBC Hgb Hct MCHC RDW 15.3 H Lymph % (Auto) [place] % (Auto) Eos % (Auto) Lymph # [place] # Lymph # (Auto) [place] # (Auto) Eos # (Auto) Seg Neutrophils % Seg Neuts % (Manual) Lymphocytes % (Manual) Seg Neutrophils # Seg Neutrophils # Man Lymphocytes # (Manual) Monocytes % (Manual) Eosinophils % (Manual) Monocytes # (Manual) Eosinophils # (Manual) D-Dimer Heparin Anti-Xa Level ABG pH POC ABG pCO2 POC ABG pO2 ABG pO2 ABG HCO3 ABG O2 Saturation ABG Base Excess ABG Hemoglobin ABG Oxyhemoglobin VBG pH ABG Sodium ABG Potassium ABG Glucose Oxyhemoglobin Sodium Potassium 6.6 H* Chloride 109.2 H Carbon Dioxide 17 L BUN 29 H Creatinine 1.3 H Glucose 265 H POC Glucose 248 H Lactic Acid Calcium 8.1 L Ferritin AST 63 H Alkaline Phosphatase Magnesium Lactate Dehydrogenase Total Creatine Kinase 301 H CK-MB (CK-2) 4.3 H C-Reactive Protein Total Protein 5.4 L Albumin 2.6 L Troponin T HDL Cholesterol Arterial Blood Glucose Urine WBC (Auto) Urine Creatinine Urine Total Protein Phenytoin Coronavirus (PCR) Crossmatch 05/28/20 05/28/20 05/28/20 13:47 13:47 14:46 WBC RBC Hgb Hct MCHC RDW Lymph % (Auto) [place] % (Auto) Eos % (Auto) Lymph # [place] # Lymph # (Auto) [place] # (Auto) Eos # (Auto) Seg Neutrophils % Seg Neuts % (Manual) Lymphocytes % (Manual) Seg Neutrophils # Seg Neutrophils # Man Lymphocytes # (Manual) Monocytes % (Manual) Eosinophils % (Manual) Monocytes # (Manual) Eosinophils # (Manual) D-Dimer Heparin Anti-Xa Level ABG pH POC ABG pCO2 POC ABG pO2 ABG pO2 ABG HCO3 ABG O2 Saturation ABG Base Excess ABG Hemoglobin ABG Oxyhemoglobin VBG pH 7.152 L* ABG Sodium ABG Potassium ABG Glucose Oxyhemoglobin Sodium Potassium 7.2 H* Chloride Carbon Dioxide BUN Creatinine Glucose POC Glucose Lactic Acid 3.40 H* Calcium Ferritin AST Alkaline Phosphatase Magnesium Lactate Dehydrogenase Total Creatine Kinase CK-MB (CK-2) C-Reactive Protein Total Protein Albumin Troponin T HDL Cholesterol Arterial Blood Glucose Urine WBC (Auto) Urine Creatinine Urine Total Protein Phenytoin Coronavirus (PCR) Crossmatch 05/28/20 05/28/20 05/28/20 15:33 15:33 15:51 WBC RBC Hgb Hct MCHC RDW Lymph % (Auto) [place] % (Auto) Eos % (Auto) Lymph # [place] # Lymph # (Auto) [place] # (Auto) Eos # (Auto) Seg Neutrophils % Seg Neuts % (Manual) Lymphocytes % (Manual) Seg Neutrophils # Seg Neutrophils # Man Lymphocytes # (Manual) Monocytes % (Manual) Eosinophils % (Manual) Monocytes # (Manual) Eosinophils # (Manual) D-Dimer 8780.43 H Heparin Anti-Xa Level ABG pH 7.284 L POC ABG pCO2 POC ABG pO2 ABG pO2 273.0 H ABG HCO3 ABG O2 Saturation 99.4 H ABG Base Excess -6.1 L ABG Hemoglobin 17.2 H ABG Oxyhemoglobin VBG pH ABG Sodium ABG Potassium ABG Glucose Oxyhemoglobin Sodium Potassium Chloride Carbon Dioxide BUN Creatinine Glucose 152 H POC Glucose Lactic Acid Calcium Ferritin AST Alkaline Phosphatase Magnesium Lactate Dehydrogenase 365 H Total Creatine Kinase CK-MB (CK-2) C-Reactive Protein Total Protein Albumin Troponin T HDL Cholesterol Arterial Blood Glucose Urine WBC (Auto) Urine Creatinine Urine Total Protein Phenytoin Coronavirus (PCR) Crossmatch 05/28/20 05/28/20 05/28/20 16:30 20:41 23:20 WBC RBC Hgb Hct MCHC RDW Lymph % (Auto) [place] % (Auto) Eos % (Auto) Lymph # [place] # Lymph # (Auto) [place] # (Auto) Eos # (Auto) Seg Neutrophils % Seg Neuts % (Manual) Lymphocytes % (Manual) Seg Neutrophils # Seg Neutrophils # Man Lymphocytes # (Manual) Monocytes % (Manual) Eosinophils % (Manual) Monocytes # (Manual) Eosinophils # (Manual) D-Dimer Heparin Anti-Xa Level ABG pH POC ABG pCO2 POC ABG pO2 ABG pO2 ABG HCO3 ABG O2 Saturation ABG Base Excess ABG Hemoglobin ABG Oxyhemoglobin VBG pH ABG Sodium ABG Potassium ABG Glucose Oxyhemoglobin Sodium Potassium Chloride Carbon Dioxide BUN Creatinine Glucose POC Glucose 225 H 224 H Lactic Acid Calcium Ferritin AST Alkaline Phosphatase Magnesium Lactate Dehydrogenase Total Creatine Kinase CK-MB (CK-2) C-Reactive Protein Total Protein Albumin Troponin T HDL Cholesterol Arterial Blood Glucose Urine WBC (Auto) 17.0 H Urine Creatinine Urine Total Protein Phenytoin Coronavirus (PCR) Crossmatch 05/28/20 05/29/20 05/29/20 Unknown 04:35 04:43 WBC RBC 3.48 L Hgb 9.8 L Hct 29.4 L MCHC RDW 16.0 H Lymph % (Auto) 7.4 L [place] % (Auto) Eos % (Auto) Lymph # 0.7 L [place] # Lymph # (Auto) [place] # (Auto) Eos # (Auto) Seg Neutrophils % 89.1 H Seg Neuts % (Manual) Lymphocytes % (Manual) Seg Neutrophils # 8.1 H Seg Neutrophils # Man Lymphocytes # (Manual) Monocytes % (Manual) Eosinophils % (Manual) Monocytes # (Manual) Eosinophils # (Manual) D-Dimer Heparin Anti-Xa Level ABG pH POC ABG pCO2 POC ABG pO2 ABG pO2 ABG HCO3 19.3 L ABG O2 Saturation ABG Base Excess -4.5 L ABG Hemoglobin 9.7 L ABG Oxyhemoglobin VBG pH ABG Sodium ABG Potassium ABG Glucose Oxyhemoglobin Sodium Potassium Chloride Carbon Dioxide BUN Creatinine Glucose POC Glucose Lactic Acid Calcium Ferritin AST Alkaline Phosphatase Magnesium Lactate Dehydrogenase Total Creatine Kinase CK-MB (CK-2) C-Reactive Protein Total Protein Albumin Troponin T HDL Cholesterol Arterial Blood Glucose Urine WBC (Auto) Urine Creatinine Urine Total Protein Phenytoin Coronavirus (PCR) Positive A Crossmatch 05/29/20 05/29/20 05/29/20 04:43 15:10 17:17 WBC RBC Hgb 9.3 L Hct 28.7 L MCHC RDW Lymph % (Auto) [place] % (Auto) Eos % (Auto) Lymph # [place] # Lymph # (Auto) [place] # (Auto) Eos # (Auto) Seg Neutrophils % Seg Neuts % (Manual) Lymphocytes % (Manual) Seg Neutrophils # Seg Neutrophils # Man Lymphocytes # (Manual) Monocytes % (Manual) Eosinophils % (Manual) Monocytes # (Manual) Eosinophils # (Manual) D-Dimer Heparin Anti-Xa Level ABG pH POC ABG pCO2 POC ABG pO2 ABG pO2 ABG HCO3 ABG O2 Saturation ABG Base Excess ABG Hemoglobin ABG Oxyhemoglobin VBG pH ABG Sodium ABG Potassium ABG Glucose Oxyhemoglobin Sodium Potassium Chloride 110.2 H Carbon Dioxide 18 L BUN 32 H Creatinine 1.4 H Glucose 180 H POC Glucose 147 H Lactic Acid Calcium Ferritin AST Alkaline Phosphatase Magnesium Lactate Dehydrogenase Total Creatine Kinase CK-MB (CK-2) C-Reactive Protein Total Protein Albumin Troponin T HDL Cholesterol Arterial Blood Glucose Urine WBC (Auto) Urine Creatinine Urine Total Protein Phenytoin Coronavirus (PCR) Crossmatch 05/30/20 05/30/20 05/30/20 00:08 00:12 04:15 WBC RBC Hgb Hct MCHC RDW Lymph % (Auto) [place] % (Auto) Eos % (Auto) Lymph # [place] # Lymph # (Auto) [place] # (Auto) Eos # (Auto) Seg Neutrophils % Seg Neuts % (Manual) Lymphocytes % (Manual) Seg Neutrophils # Seg Neutrophils # Man Lymphocytes # (Manual) Monocytes % (Manual) Eosinophils % (Manual) Monocytes # (Manual) Eosinophils # (Manual) D-Dimer Heparin Anti-Xa Level 0.71 H ABG pH 7.460 H POC ABG pCO2 POC ABG pO2 ABG pO2 106.0 H ABG HCO3 18.9 L ABG O2 Saturation ABG Base Excess -4.4 L ABG Hemoglobin 6.8 L ABG Oxyhemoglobin VBG pH ABG Sodium ABG Potassium ABG Glucose Oxyhemoglobin Sodium Potassium Chloride Carbon Dioxide BUN Creatinine Glucose POC Glucose 195 H Lactic Acid Calcium Ferritin AST Alkaline Phosphatase Magnesium Lactate Dehydrogenase Total Creatine Kinase CK-MB (CK-2) C-Reactive Protein Total Protein Albumin Troponin T HDL Cholesterol Arterial Blood Glucose Urine WBC (Auto) Urine Creatinine Urine Total Protein Phenytoin Coronavirus (PCR) Crossmatch 05/30/20 05/30/20 05/30/20 06:07 08:37 12:33 WBC RBC Hgb Hct MCHC RDW Lymph % (Auto) [place] % (Auto) Eos % (Auto) Lymph # [place] # Lymph # (Auto) [place] # (Auto) Eos # (Auto) Seg Neutrophils % Seg Neuts % (Manual) Lymphocytes % (Manual) Seg Neutrophils # Seg Neutrophils # Man Lymphocytes # (Manual) Monocytes % (Manual) Eosinophils % (Manual) Monocytes # (Manual) Eosinophils # (Manual) D-Dimer Heparin Anti-Xa Level 0.85 H ABG pH POC ABG pCO2 POC ABG pO2 ABG pO2 ABG HCO3 ABG O2 Saturation ABG Base Excess ABG Hemoglobin ABG Oxyhemoglobin VBG pH ABG Sodium ABG Potassium ABG Glucose Oxyhemoglobin Sodium Potassium Chloride Carbon Dioxide BUN Creatinine Glucose POC Glucose 182 H 187 H Lactic Acid Calcium Ferritin AST Alkaline Phosphatase Magnesium Lactate Dehydrogenase Total Creatine Kinase CK-MB (CK-2) C-Reactive Protein Total Protein Albumin Troponin T HDL Cholesterol Arterial Blood Glucose Urine WBC (Auto) Urine Creatinine Urine Total Protein Phenytoin Coronavirus (PCR) Crossmatch 05/30/20 05/30/20 05/30/20 15:58 17:57 23:36 WBC RBC Hgb Hct MCHC RDW Lymph % (Auto) [place] % (Auto) Eos % (Auto) Lymph # [place] # Lymph # (Auto) [place] # (Auto) Eos # (Auto) Seg Neutrophils % Seg Neuts % (Manual) Lymphocytes % (Manual) Seg Neutrophils # Seg Neutrophils # Man Lymphocytes # (Manual) Monocytes % (Manual) Eosinophils % (Manual) Monocytes # (Manual) Eosinophils # (Manual) D-Dimer Heparin Anti-Xa Level 1.03 H ABG pH POC ABG pCO2 POC ABG pO2 ABG pO2 ABG HCO3 ABG O2 Saturation ABG Base Excess ABG Hemoglobin ABG Oxyhemoglobin VBG pH ABG Sodium ABG Potassium ABG Glucose Oxyhemoglobin Sodium Potassium Chloride Carbon Dioxide BUN Creatinine Glucose POC Glucose 208 H 185 H Lactic Acid Calcium Ferritin AST Alkaline Phosphatase Magnesium Lactate Dehydrogenase Total Creatine Kinase CK-MB (CK-2) C-Reactive Protein Total Protein Albumin Troponin T HDL Cholesterol Arterial Blood Glucose Urine WBC (Auto) Urine Creatinine Urine Total Protein Phenytoin Coronavirus (PCR) Crossmatch 05/31/20 05/31/20 05/31/20 02:16 03:55 06:16 WBC RBC Hgb 9.2 L Hct 27.5 L MCHC RDW Lymph % (Auto) [place] % (Auto) Eos % (Auto) Lymph # [place] # Lymph # (Auto) [place] # (Auto) Eos # (Auto) Seg Neutrophils % Seg Neuts % (Manual) Lymphocytes % (Manual) Seg Neutrophils # Seg Neutrophils # Man Lymphocytes # (Manual) Monocytes % (Manual) Eosinophils % (Manual) Monocytes # (Manual) Eosinophils # (Manual) D-Dimer Heparin Anti-Xa Level ABG pH POC ABG pCO2 POC ABG pO2 ABG pO2 94.7 H ABG HCO3 18.6 L ABG O2 Saturation ABG Base Excess -5.5 L ABG Hemoglobin 7.9 L ABG Oxyhemoglobin VBG pH ABG Sodium ABG Potassium ABG Glucose Oxyhemoglobin Sodium Potassium Chloride Carbon Dioxide BUN Creatinine Glucose POC Glucose 160 H Lactic Acid Calcium Ferritin AST Alkaline Phosphatase Magnesium Lactate Dehydrogenase Total Creatine Kinase CK-MB (CK-2) C-Reactive Protein Total Protein Albumin Troponin T HDL Cholesterol Arterial Blood Glucose Urine WBC (Auto) Urine Creatinine Urine Total Protein Phenytoin Coronavirus (PCR) Crossmatch 05/31/20 05/31/20 05/31/20 12:20 13:03 18:13 WBC RBC Hgb Hct MCHC RDW Lymph % (Auto) [place] % (Auto) Eos % (Auto) Lymph # [place] # Lymph # (Auto) [place] # (Auto) Eos # (Auto) Seg Neutrophils % Seg Neuts % (Manual) Lymphocytes % (Manual) Seg Neutrophils # Seg Neutrophils # Man Lymphocytes # (Manual) Monocytes % (Manual) Eosinophils % (Manual) Monocytes # (Manual) Eosinophils # (Manual) D-Dimer Heparin Anti-Xa Level ABG pH POC ABG pCO2 POC ABG pO2 ABG pO2 ABG HCO3 ABG O2 Saturation ABG Base Excess ABG Hemoglobin ABG Oxyhemoglobin VBG pH ABG Sodium ABG Potassium ABG Glucose Oxyhemoglobin Sodium Potassium Chloride Carbon Dioxide 18 L BUN 48 H Creatinine 1.6 H Glucose 115 H POC Glucose 128 H 159 H Lactic Acid Calcium 8.3 L Ferritin AST Alkaline Phosphatase Magnesium Lactate Dehydrogenase Total Creatine Kinase CK-MB (CK-2) C-Reactive Protein Total Protein 5.4 L Albumin 2.4 L Troponin T HDL Cholesterol Arterial Blood Glucose Urine WBC (Auto) Urine Creatinine Urine Total Protein Phenytoin Coronavirus (PCR) Crossmatch 05/31/20 06/01/20 06/01/20 23:51 04:00 05:48 WBC RBC Hgb Hct MCHC RDW Lymph % (Auto) [place] % (Auto) Eos % (Auto) Lymph # [place] # Lymph # (Auto) [place] # (Auto) Eos # (Auto) Seg Neutrophils % Seg Neuts % (Manual) Lymphocytes % (Manual) Seg Neutrophils # Seg Neutrophils # Man Lymphocytes # (Manual) Monocytes % (Manual) Eosinophils % (Manual) Monocytes # (Manual) Eosinophils # (Manual) D-Dimer Heparin Anti-Xa Level ABG pH POC ABG pCO2 POC ABG pO2 ABG pO2 109.8 H ABG HCO3 18.8 L ABG O2 Saturation ABG Base Excess -5.9 L ABG Hemoglobin 7.8 L ABG Oxyhemoglobin VBG pH ABG Sodium ABG Potassium ABG Glucose Oxyhemoglobin Sodium Potassium Chloride Carbon Dioxide BUN Creatinine Glucose POC Glucose 171 H 133 H Lactic Acid Calcium Ferritin AST Alkaline Phosphatase Magnesium Lactate Dehydrogenase Total Creatine Kinase CK-MB (CK-2) C-Reactive Protein Total Protein Albumin Troponin T HDL Cholesterol Arterial Blood Glucose Urine WBC (Auto) Urine Creatinine Urine Total Protein Phenytoin Coronavirus (PCR) Crossmatch 06/01/20 06/01/20 06/02/20 12:28 17:29 00:08 WBC RBC Hgb Hct MCHC RDW Lymph % (Auto) [place] % (Auto) Eos % (Auto) Lymph # [place] # Lymph # (Auto) [place] # (Auto) Eos # (Auto) Seg Neutrophils % Seg Neuts % (Manual) Lymphocytes % (Manual) Seg Neutrophils # Seg Neutrophils # Man Lymphocytes # (Manual) Monocytes % (Manual) Eosinophils % (Manual) Monocytes # (Manual) Eosinophils # (Manual) D-Dimer Heparin Anti-Xa Level ABG pH POC ABG pCO2 POC ABG pO2 ABG pO2 ABG HCO3 ABG O2 Saturation ABG Base Excess ABG Hemoglobin ABG Oxyhemoglobin VBG pH ABG Sodium ABG Potassium ABG Glucose Oxyhemoglobin Sodium Potassium Chloride Carbon Dioxide BUN Creatinine Glucose POC Glucose 199 H 209 H 162 H Lactic Acid Calcium Ferritin AST Alkaline Phosphatase Magnesium Lactate Dehydrogenase Total Creatine Kinase CK-MB (CK-2) C-Reactive Protein Total Protein Albumin Troponin T HDL Cholesterol Arterial Blood Glucose Urine WBC (Auto) Urine Creatinine Urine Total Protein Phenytoin Coronavirus (PCR) Crossmatch 06/02/20 06/02/20 06/02/20 04:20 04:20 04:44 WBC RBC Hgb 10.0 L Hct MCHC RDW Lymph % (Auto) [place] % (Auto) Eos % (Auto) Lymph # [place] # Lymph # (Auto) [place] # (Auto) Eos # (Auto) Seg Neutrophils % Seg Neuts % (Manual) Lymphocytes % (Manual) Seg Neutrophils # Seg Neutrophils # Man Lymphocytes # (Manual) Monocytes % (Manual) Eosinophils % (Manual) Monocytes # (Manual) Eosinophils # (Manual) D-Dimer Heparin Anti-Xa Level 0.10 L ABG pH POC ABG pCO2 POC ABG pO2 ABG pO2 150.6 H ABG HCO3 ABG O2 Saturation ABG Base Excess -4.1 L ABG Hemoglobin 11.8 L ABG Oxyhemoglobin VBG pH ABG Sodium ABG Potassium ABG Glucose Oxyhemoglobin Sodium Potassium Chloride Carbon Dioxide BUN Creatinine Glucose POC Glucose Lactic Acid Calcium Ferritin AST Alkaline Phosphatase Magnesium Lactate Dehydrogenase Total Creatine Kinase CK-MB (CK-2) C-Reactive Protein Total Protein Albumin Troponin T HDL Cholesterol Arterial Blood Glucose Urine WBC (Auto) Urine Creatinine Urine Total Protein Phenytoin Coronavirus (PCR) Crossmatch 06/02/20 06/02/20 06/02/20 05:53 12:04 13:49 WBC RBC Hgb Hct MCHC RDW Lymph % (Auto) [place] % (Auto) Eos % (Auto) Lymph # [place] # Lymph # (Auto) [place] # (Auto) Eos # (Auto) Seg Neutrophils % Seg Neuts % (Manual) Lymphocytes % (Manual) Seg Neutrophils # Seg Neutrophils # Man Lymphocytes # (Manual) Monocytes % (Manual) Eosinophils % (Manual) Monocytes # (Manual) Eosinophils # (Manual) D-Dimer Heparin Anti-Xa Level 0.28 L ABG pH POC ABG pCO2 POC ABG pO2 ABG pO2 ABG HCO3 ABG O2 Saturation ABG Base Excess ABG Hemoglobin ABG Oxyhemoglobin VBG pH ABG Sodium ABG Potassium ABG Glucose Oxyhemoglobin Sodium Potassium Chloride Carbon Dioxide BUN Creatinine Glucose POC Glucose 149 H 220 H Lactic Acid Calcium Ferritin AST Alkaline Phosphatase Magnesium Lactate Dehydrogenase Total Creatine Kinase CK-MB (CK-2) C-Reactive Protein Total Protein Albumin Troponin T HDL Cholesterol Arterial Blood Glucose Urine WBC (Auto) Urine Creatinine Urine Total Protein Phenytoin Coronavirus (PCR) Crossmatch 06/02/20 06/02/20 06/03/20 13:49 18:31 00:42 WBC RBC Hgb Hct MCHC RDW Lymph % (Auto) [place] % (Auto) Eos % (Auto) Lymph # [place] # Lymph # (Auto) [place] # (Auto) Eos # (Auto) Seg Neutrophils % Seg Neuts % (Manual) Lymphocytes % (Manual) Seg Neutrophils # Seg Neutrophils # Man Lymphocytes # (Manual) Monocytes % (Manual) Eosinophils % (Manual) Monocytes # (Manual) Eosinophils # (Manual) D-Dimer 769.68 H Heparin Anti-Xa Level ABG pH POC ABG pCO2 POC ABG pO2 ABG pO2 ABG HCO3 ABG O2 Saturation ABG Base Excess ABG Hemoglobin ABG Oxyhemoglobin VBG pH ABG Sodium ABG Potassium ABG Glucose Oxyhemoglobin Sodium Potassium Chloride Carbon Dioxide BUN Creatinine Glucose POC Glucose 225 H 212 H Lactic Acid Calcium Ferritin AST Alkaline Phosphatase Magnesium Lactate Dehydrogenase Total Creatine Kinase CK-MB (CK-2) C-Reactive Protein Total Protein Albumin Troponin T HDL Cholesterol Arterial Blood Glucose Urine WBC (Auto) Urine Creatinine Urine Total Protein Phenytoin Coronavirus (PCR) Crossmatch 06/03/20 06/03/20 06/03/20 05:16 05:16 05:25 WBC 11.4 H RBC Hgb Hct MCHC RDW 16.4 H Lymph % (Auto) [place] % (Auto) Eos % (Auto) Lymph # [place] # Lymph # (Auto) [place] # (Auto) Eos # (Auto) Seg Neutrophils % Seg Neuts % (Manual) Lymphocytes % (Manual) Seg Neutrophils # Seg Neutrophils # Man Lymphocytes # (Manual) Monocytes % (Manual) Eosinophils % (Manual) Monocytes # (Manual) Eosinophils # (Manual) D-Dimer Heparin Anti-Xa Level ABG pH POC ABG pCO2 POC ABG pO2 ABG pO2 160.9 H ABG HCO3 19.4 L ABG O2 Saturation ABG Base Excess -4.9 L ABG Hemoglobin 7.0 L ABG Oxyhemoglobin VBG pH ABG Sodium ABG Potassium ABG Glucose Oxyhemoglobin Sodium Potassium Chloride Carbon Dioxide 18 L BUN 65 H Creatinine 2.0 H Glucose 175 H POC Glucose Lactic Acid Calcium 8.0 L Ferritin AST Alkaline Phosphatase Magnesium Lactate Dehydrogenase Total Creatine Kinase CK-MB (CK-2) C-Reactive Protein Total Protein 5.5 L Albumin 2.2 L Troponin T HDL Cholesterol Arterial Blood Glucose Urine WBC (Auto) Urine Creatinine Urine Total Protein Phenytoin Coronavirus (PCR) Crossmatch 06/03/20 06/03/20 06/03/20 06:07 11:58 18:24 WBC RBC Hgb Hct MCHC RDW Lymph % (Auto) [place] % (Auto) Eos % (Auto) Lymph # [place] # Lymph # (Auto) [place] # (Auto) Eos # (Auto) Seg Neutrophils % Seg Neuts % (Manual) Lymphocytes % (Manual) Seg Neutrophils # Seg Neutrophils # Man Lymphocytes # (Manual) Monocytes % (Manual) Eosinophils % (Manual) Monocytes # (Manual) Eosinophils # (Manual) D-Dimer Heparin Anti-Xa Level ABG pH POC ABG pCO2 POC ABG pO2 ABG pO2 ABG HCO3 ABG O2 Saturation ABG Base Excess ABG Hemoglobin ABG Oxyhemoglobin VBG pH ABG Sodium ABG Potassium ABG Glucose Oxyhemoglobin Sodium Potassium Chloride Carbon Dioxide BUN Creatinine Glucose POC Glucose 177 H 163 H 211 H Lactic Acid Calcium Ferritin AST Alkaline Phosphatase Magnesium Lactate Dehydrogenase Total Creatine Kinase CK-MB (CK-2) C-Reactive Protein Total Protein Albumin Troponin T HDL Cholesterol Arterial Blood Glucose Urine WBC (Auto) Urine Creatinine Urine Total Protein Phenytoin Coronavirus (PCR) Crossmatch 06/03/20 06/03/20 06/04/20 21:50 Unknown 00:26 WBC RBC Hgb Hct MCHC RDW Lymph % (Auto) [place] % (Auto) Eos % (Auto) Lymph # [place] # Lymph # (Auto) [place] # (Auto) Eos # (Auto) Seg Neutrophils % Seg Neuts % (Manual) Lymphocytes % (Manual) Seg Neutrophils # Seg Neutrophils # Man Lymphocytes # (Manual) Monocytes % (Manual) Eosinophils % (Manual) Monocytes # (Manual) Eosinophils # (Manual) D-Dimer Heparin Anti-Xa Level ABG pH POC ABG pCO2 POC ABG pO2 ABG pO2 ABG HCO3 ABG O2 Saturation ABG Base Excess ABG Hemoglobin ABG Oxyhemoglobin VBG pH ABG Sodium ABG Potassium ABG Glucose Oxyhemoglobin Sodium 135 L Potassium Chloride Carbon Dioxide 18 L BUN Creatinine Glucose POC Glucose 241 H Lactic Acid Calcium Ferritin AST Alkaline Phosphatase Magnesium Lactate Dehydrogenase Total Creatine Kinase CK-MB (CK-2) C-Reactive Protein Total Protein Albumin Troponin T HDL Cholesterol Arterial Blood Glucose Urine WBC (Auto) 11.0 H Urine Creatinine Urine Total Protein Phenytoin Coronavirus (PCR) Crossmatch 06/04/20 06/04/20 06/04/20 03:35 04:19 04:19 WBC RBC 3.15 L Hgb 8.9 L Hct 26.8 L D MCHC RDW 15.9 H Lymph % (Auto) 6.0 L [place] % (Auto) Eos % (Auto) Lymph # 0.6 L [place] # Lymph # (Auto) [place] # (Auto) Eos # (Auto) Seg Neutrophils % 86.6 H Seg Neuts % (Manual) Lymphocytes % (Manual) Seg Neutrophils # 9.1 H Seg Neutrophils # Man Lymphocytes # (Manual) Monocytes % (Manual) Eosinophils % (Manual) Monocytes # (Manual) Eosinophils # (Manual) D-Dimer Heparin Anti-Xa Level ABG pH 7.331 L POC ABG pCO2 POC ABG pO2 ABG pO2 ABG HCO3 ABG O2 Saturation ABG Base Excess -4.7 L ABG Hemoglobin 11.0 L ABG Oxyhemoglobin VBG pH ABG Sodium ABG Potassium ABG Glucose Oxyhemoglobin 93.9 L Sodium 136 L Potassium Chloride Carbon Dioxide 20 L BUN 73 H Creatinine 2.0 H Glucose 192 H POC Glucose Lactic Acid Calcium 8.0 L Ferritin AST Alkaline Phosphatase Magnesium Lactate Dehydrogenase 271 H Total Creatine Kinase CK-MB (CK-2) C-Reactive Protein 2.20 H Total Protein 5.0 L Albumin 2.0 L Troponin T HDL Cholesterol Arterial Blood Glucose Urine WBC (Auto) Urine Creatinine Urine Total Protein Phenytoin Coronavirus (PCR) Crossmatch 06/04/20 06/04/20 06/04/20 04:19 05:51 11:48 WBC RBC Hgb Hct MCHC RDW Lymph % (Auto) [place] % (Auto) Eos % (Auto) Lymph # [place] # Lymph # (Auto) [place] # (Auto) Eos # (Auto) Seg Neutrophils % Seg Neuts % (Manual) Lymphocytes % (Manual) Seg Neutrophils # Seg Neutrophils # Man Lymphocytes # (Manual) Monocytes % (Manual) Eosinophils % (Manual) Monocytes # (Manual) Eosinophils # (Manual) D-Dimer 414.52 H Heparin Anti-Xa Level ABG pH POC ABG pCO2 POC ABG pO2 ABG pO2 ABG HCO3 ABG O2 Saturation ABG Base Excess ABG Hemoglobin ABG Oxyhemoglobin VBG pH ABG Sodium ABG Potassium ABG Glucose Oxyhemoglobin Sodium Potassium Chloride Carbon Dioxide BUN Creatinine Glucose POC Glucose 179 H 213 H Lactic Acid Calcium Ferritin AST Alkaline Phosphatase Magnesium Lactate Dehydrogenase Total Creatine Kinase CK-MB (CK-2) C-Reactive Protein Total Protein Albumin Troponin T HDL Cholesterol Arterial Blood Glucose Urine WBC (Auto) Urine Creatinine Urine Total Protein Phenytoin Coronavirus (PCR) Crossmatch 06/04/20 06/05/20 06/05/20 18:25 00:16 05:00 WBC RBC Hgb Hct MCHC RDW Lymph % (Auto) [place] % (Auto) Eos % (Auto) Lymph # [place] # Lymph # (Auto) [place] # (Auto) Eos # (Auto) Seg Neutrophils % Seg Neuts % (Manual) Lymphocytes % (Manual) Seg Neutrophils # Seg Neutrophils # Man Lymphocytes # (Manual) Monocytes % (Manual) Eosinophils % (Manual) Monocytes # (Manual) Eosinophils # (Manual) D-Dimer Heparin Anti-Xa Level ABG pH 7.286 L POC ABG pCO2 POC ABG pO2 ABG pO2 96.2 H ABG HCO3 ABG O2 Saturation ABG Base Excess -6.3 L ABG Hemoglobin 8.8 L ABG Oxyhemoglobin VBG pH ABG Sodium ABG Potassium ABG Glucose Oxyhemoglobin 94.8 L Sodium Potassium Chloride Carbon Dioxide BUN Creatinine Glucose POC Glucose 238 H 183 H Lactic Acid Calcium Ferritin AST Alkaline Phosphatase Magnesium Lactate Dehydrogenase Total Creatine Kinase CK-MB (CK-2) C-Reactive Protein Total Protein Albumin Troponin T HDL Cholesterol Arterial Blood Glucose Urine WBC (Auto) Urine Creatinine Urine Total Protein Phenytoin Coronavirus (PCR) Crossmatch 06/05/20 06/05/20 06/05/20 05:39 07:25 07:25 WBC RBC 2.97 L Hgb 8.7 L Hct 25.7 L MCHC RDW 16.0 H Lymph % (Auto) 8.8 L [place] % (Auto) 13.3 H Eos % (Auto) Lymph # 0.8 L [place] # 1.3 H Lymph # (Auto) [place] # (Auto) Eos # (Auto) Seg Neutrophils % 77.3 H Seg Neuts % (Manual) Lymphocytes % (Manual) Seg Neutrophils # Seg Neutrophils # Man Lymphocytes # (Manual) Monocytes % (Manual) Eosinophils % (Manual) Monocytes # (Manual) Eosinophils # (Manual) D-Dimer Heparin Anti-Xa Level ABG pH POC ABG pCO2 POC ABG pO2 ABG pO2 ABG HCO3 ABG O2 Saturation ABG Base Excess ABG Hemoglobin ABG Oxyhemoglobin VBG pH ABG Sodium ABG Potassium ABG Glucose Oxyhemoglobin Sodium 133 L Potassium Chloride Carbon Dioxide 17 L BUN 89 H Creatinine 2.8 H Glucose 176 H POC Glucose 149 H Lactic Acid Calcium 7.7 L Ferritin AST Alkaline Phosphatase Magnesium Lactate Dehydrogenase Total Creatine Kinase CK-MB (CK-2) C-Reactive Protein Total Protein 4.2 L Albumin 1.9 L Troponin T HDL Cholesterol Arterial Blood Glucose Urine WBC (Auto) Urine Creatinine Urine Total Protein Phenytoin Coronavirus (PCR) Crossmatch 06/05/20 06/05/20 06/05/20 07:25 12:05 15:41 WBC RBC Hgb Hct MCHC RDW Lymph % (Auto) [place] % (Auto) Eos % (Auto) Lymph # [place] # Lymph # (Auto) [place] # (Auto) Eos # (Auto) Seg Neutrophils % Seg Neuts % (Manual) Lymphocytes % (Manual) Seg Neutrophils # Seg Neutrophils # Man Lymphocytes # (Manual) Monocytes % (Manual) Eosinophils % (Manual) Monocytes # (Manual) Eosinophils # (Manual) D-Dimer Heparin Anti-Xa Level 0.76 H 0.81 H ABG pH POC ABG pCO2 POC ABG pO2 ABG pO2 ABG HCO3 ABG O2 Saturation ABG Base Excess ABG Hemoglobin ABG Oxyhemoglobin VBG pH ABG Sodium ABG Potassium ABG Glucose Oxyhemoglobin Sodium Potassium Chloride Carbon Dioxide BUN Creatinine Glucose POC Glucose 198 H Lactic Acid Calcium Ferritin AST Alkaline Phosphatase Magnesium Lactate Dehydrogenase Total Creatine Kinase CK-MB (CK-2) C-Reactive Protein Total Protein Albumin Troponin T HDL Cholesterol Arterial Blood Glucose Urine WBC (Auto) Urine Creatinine Urine Total Protein Phenytoin Coronavirus (PCR) Crossmatch 06/05/20 06/05/20 06/06/20 18:08 23:25 04:00 WBC RBC Hgb Hct MCHC RDW Lymph % (Auto) [place] % (Auto) Eos % (Auto) Lymph # [place] # Lymph # (Auto) [place] # (Auto) Eos # (Auto) Seg Neutrophils % Seg Neuts % (Manual) Lymphocytes % (Manual) Seg Neutrophils # Seg Neutrophils # Man Lymphocytes # (Manual) Monocytes % (Manual) Eosinophils % (Manual) Monocytes # (Manual) Eosinophils # (Manual) D-Dimer Heparin Anti-Xa Level ABG pH POC ABG pCO2 POC ABG pO2 ABG pO2 ABG HCO3 ABG O2 Saturation ABG Base Excess ABG Hemoglobin ABG Oxyhemoglobin VBG pH ABG Sodium ABG Potassium ABG Glucose Oxyhemoglobin Sodium Potassium Chloride Carbon Dioxide BUN Creatinine Glucose POC Glucose 223 H 169 H Lactic Acid Calcium Ferritin AST Alkaline Phosphatase Magnesium Lactate Dehydrogenase Total Creatine Kinase CK-MB (CK-2) C-Reactive Protein Total Protein Albumin Troponin T HDL Cholesterol Arterial Blood Glucose Urine WBC (Auto) 15.0 H Urine Creatinine Urine Total Protein Phenytoin Coronavirus (PCR) Crossmatch 06/06/20 06/06/20 06/06/20 04:00 05:33 05:38 WBC RBC 2.97 L Hgb 8.7 L Hct 26.8 L MCHC RDW 16.8 H Lymph % (Auto) [place] % (Auto) Eos % (Auto) Lymph # [place] # Lymph # (Auto) [place] # (Auto) Eos # (Auto) Seg Neutrophils % Seg Neuts % (Manual) Lymphocytes % (Manual) Seg Neutrophils # Seg Neutrophils # Man Lymphocytes # (Manual) Monocytes % (Manual) Eosinophils % (Manual) Monocytes # (Manual) Eosinophils # (Manual) D-Dimer Heparin Anti-Xa Level ABG pH POC ABG pCO2 POC ABG pO2 ABG pO2 ABG HCO3 ABG O2 Saturation ABG Base Excess ABG Hemoglobin ABG Oxyhemoglobin VBG pH ABG Sodium ABG Potassium ABG Glucose Oxyhemoglobin Sodium Potassium Chloride Carbon Dioxide BUN Creatinine Glucose POC Glucose 186 H Lactic Acid Calcium Ferritin AST Alkaline Phosphatase Magnesium Lactate Dehydrogenase Total Creatine Kinase CK-MB (CK-2) C-Reactive Protein Total Protein Albumin Troponin T HDL Cholesterol Arterial Blood Glucose Urine WBC (Auto) Urine Creatinine 82.2 H Urine Total Protein 196 H Phenytoin Coronavirus (PCR) Crossmatch 06/06/20 06/06/20 06/06/20 05:38 12:25 17:03 WBC RBC Hgb Hct MCHC RDW Lymph % (Auto) [place] % (Auto) Eos % (Auto) Lymph # [place] # Lymph # (Auto) [place] # (Auto) Eos # (Auto) Seg Neutrophils % Seg Neuts % (Manual) Lymphocytes % (Manual) Seg Neutrophils # Seg Neutrophils # Man Lymphocytes # (Manual) Monocytes % (Manual) Eosinophils % (Manual) Monocytes # (Manual) Eosinophils # (Manual) D-Dimer Heparin Anti-Xa Level ABG pH POC ABG pCO2 POC ABG pO2 ABG pO2 ABG HCO3 ABG O2 Saturation ABG Base Excess ABG Hemoglobin ABG Oxyhemoglobin VBG pH ABG Sodium ABG Potassium ABG Glucose Oxyhemoglobin Sodium 134 L Potassium 5.2 H Chloride Carbon Dioxide 18 L BUN 97 H Creatinine 2.5 H Glucose 193 H POC Glucose 239 H 252 H Lactic Acid Calcium 7.5 L Ferritin AST Alkaline Phosphatase Magnesium Lactate Dehydrogenase Total Creatine Kinase CK-MB (CK-2) C-Reactive Protein Total Protein 4.1 L Albumin 1.9 L Troponin T HDL Cholesterol Arterial Blood Glucose Urine WBC (Auto) Urine Creatinine Urine Total Protein Phenytoin Coronavirus (PCR) Crossmatch 06/07/20 06/07/20 06/07/20 00:16 01:49 04:00 WBC RBC 2.91 L Hgb 8.4 L Hct 25.0 L MCHC RDW 16.1 H Lymph % (Auto) 5.7 L [place] % (Auto) 10.5 H Eos % (Auto) Lymph # 0.6 L [place] # 1.1 H Lymph # (Auto) [place] # (Auto) Eos # (Auto) Seg Neutrophils % 83.6 H Seg Neuts % (Manual) Lymphocytes % (Manual) Seg Neutrophils # 9.1 H Seg Neutrophils # Man Lymphocytes # (Manual) Monocytes % (Manual) Eosinophils % (Manual) Monocytes # (Manual) Eosinophils # (Manual) D-Dimer Heparin Anti-Xa Level 0.26 L ABG pH POC ABG pCO2 POC ABG pO2 ABG pO2 ABG HCO3 ABG O2 Saturation ABG Base Excess ABG Hemoglobin ABG Oxyhemoglobin VBG pH ABG Sodium ABG Potassium ABG Glucose Oxyhemoglobin Sodium Potassium Chloride Carbon Dioxide BUN Creatinine Glucose POC Glucose 173 H Lactic Acid Calcium Ferritin AST Alkaline Phosphatase Magnesium Lactate Dehydrogenase Total Creatine Kinase CK-MB (CK-2) C-Reactive Protein Total Protein Albumin Troponin T HDL Cholesterol Arterial Blood Glucose Urine WBC (Auto) Urine Creatinine Urine Total Protein Phenytoin Coronavirus (PCR) Crossmatch 06/07/20 06/07/20 06/07/20 04:00 04:54 05:51 WBC RBC Hgb Hct MCHC RDW Lymph % (Auto) [place] % (Auto) Eos % (Auto) Lymph # [place] # Lymph # (Auto) [place] # (Auto) Eos # (Auto) Seg Neutrophils % Seg Neuts % (Manual) Lymphocytes % (Manual) Seg Neutrophils # Seg Neutrophils # Man Lymphocytes # (Manual) Monocytes % (Manual) Eosinophils % (Manual) Monocytes # (Manual) Eosinophils # (Manual) D-Dimer Heparin Anti-Xa Level ABG pH 7.317 L POC ABG pCO2 POC ABG pO2 ABG pO2 71.4 L ABG HCO3 ABG O2 Saturation 94.3 L ABG Base Excess -4.8 L ABG Hemoglobin 7.1 L ABG Oxyhemoglobin VBG pH ABG Sodium ABG Potassium ABG Glucose Oxyhemoglobin 92.2 L Sodium 133 L Potassium Chloride Carbon Dioxide 18 L BUN 100 H Creatinine 2.5 H Glucose 158 H POC Glucose 168 H Lactic Acid Calcium 7.6 L Ferritin AST Alkaline Phosphatase Magnesium Lactate Dehydrogenase Total Creatine Kinase CK-MB (CK-2) C-Reactive Protein Total Protein 4.7 L Albumin 2.0 L Troponin T HDL Cholesterol Arterial Blood Glucose Urine WBC (Auto) Urine Creatinine Urine Total Protein Phenytoin Coronavirus (PCR) Crossmatch 06/07/20 06/07/20 06/07/20 12:03 17:17 20:10 WBC RBC Hgb Hct MCHC RDW Lymph % (Auto) [place] % (Auto) Eos % (Auto) Lymph # [place] # Lymph # (Auto) [place] # (Auto) Eos # (Auto) Seg Neutrophils % Seg Neuts % (Manual) Lymphocytes % (Manual) Seg Neutrophils # Seg Neutrophils # Man Lymphocytes # (Manual) Monocytes % (Manual) Eosinophils % (Manual) Monocytes # (Manual) Eosinophils # (Manual) D-Dimer Heparin Anti-Xa Level 0.17 L ABG pH POC ABG pCO2 POC ABG pO2 ABG pO2 ABG HCO3 ABG O2 Saturation ABG Base Excess ABG Hemoglobin ABG Oxyhemoglobin VBG pH ABG Sodium ABG Potassium ABG Glucose Oxyhemoglobin Sodium Potassium Chloride Carbon Dioxide BUN Creatinine Glucose POC Glucose 276 H 281 H Lactic Acid Calcium Ferritin AST Alkaline Phosphatase Magnesium Lactate Dehydrogenase Total Creatine Kinase CK-MB (CK-2) C-Reactive Protein Total Protein Albumin Troponin T HDL Cholesterol Arterial Blood Glucose Urine WBC (Auto) Urine Creatinine Urine Total Protein Phenytoin Coronavirus (PCR) Crossmatch 06/08/20 06/08/20 06/08/20 00:02 04:47 04:47 WBC 16.4 H RBC 3.07 L Hgb 8.6 L Hct 26.5 L MCHC RDW 16.3 H Lymph % (Auto) [place] % (Auto) Eos % (Auto) Lymph # [place] # Lymph # (Auto) [place] # (Auto) Eos # (Auto) Seg Neutrophils % Seg Neuts % (Manual) 90.0 H Lymphocytes % (Manual) 3.0 L Seg Neutrophils # Seg Neutrophils # Man 14.8 H Lymphocytes # (Manual) 0.5 L Monocytes % (Manual) Eosinophils % (Manual) Monocytes # (Manual) 1.1 H Eosinophils # (Manual) D-Dimer Heparin Anti-Xa Level ABG pH POC ABG pCO2 POC ABG pO2 ABG pO2 ABG HCO3 ABG O2 Saturation ABG Base Excess ABG Hemoglobin ABG Oxyhemoglobin VBG pH ABG Sodium ABG Potassium ABG Glucose Oxyhemoglobin Sodium 129 L Potassium Chloride 95.6 L Carbon Dioxide 17 L BUN 106 H Creatinine 2.5 H Glucose 213 H POC Glucose 242 H Lactic Acid Calcium 7.6 L Ferritin AST Alkaline Phosphatase Magnesium Lactate Dehydrogenase Total Creatine Kinase CK-MB (CK-2) C-Reactive Protein Total Protein 5.0 L Albumin 2.1 L Troponin T HDL Cholesterol Arterial Blood Glucose Urine WBC (Auto) Urine Creatinine Urine Total Protein Phenytoin Coronavirus (PCR) Crossmatch 06/08/20 06/08/20 06/08/20 05:40 11:55 17:54 WBC RBC Hgb Hct MCHC RDW Lymph % (Auto) [place] % (Auto) Eos % (Auto) Lymph # [place] # Lymph # (Auto) [place] # (Auto) Eos # (Auto) Seg Neutrophils % Seg Neuts % (Manual) Lymphocytes % (Manual) Seg Neutrophils # Seg Neutrophils # Man Lymphocytes # (Manual) Monocytes % (Manual) Eosinophils % (Manual) Monocytes # (Manual) Eosinophils # (Manual) D-Dimer Heparin Anti-Xa Level ABG pH POC ABG pCO2 POC ABG pO2 ABG pO2 ABG HCO3 ABG O2 Saturation ABG Base Excess ABG Hemoglobin ABG Oxyhemoglobin VBG pH ABG Sodium ABG Potassium ABG Glucose Oxyhemoglobin Sodium Potassium Chloride Carbon Dioxide BUN Creatinine Glucose POC Glucose 221 H 218 H 163 H Lactic Acid Calcium Ferritin AST Alkaline Phosphatase Magnesium Lactate Dehydrogenase Total Creatine Kinase CK-MB (CK-2) C-Reactive Protein Total Protein Albumin Troponin T HDL Cholesterol Arterial Blood Glucose Urine WBC (Auto) Urine Creatinine Urine Total Protein Phenytoin Coronavirus (PCR) Crossmatch 06/08/20 06/09/20 06/09/20 22:01 00:09 05:16 WBC 19.0 H RBC 3.35 L Hgb 9.2 L Hct 28.5 L MCHC RDW 16.3 H Lymph % (Auto) [place] % (Auto) Eos % (Auto) Lymph # [place] # Lymph # (Auto) [place] # (Auto) Eos # (Auto) Seg Neutrophils % Seg Neuts % (Manual) 85.0 H Lymphocytes % (Manual) 7.0 L Seg Neutrophils # Seg Neutrophils # Man 16.2 H Lymphocytes # (Manual) Monocytes % (Manual) Eosinophils % (Manual) Monocytes # (Manual) 1.3 H Eosinophils # (Manual) D-Dimer Heparin Anti-Xa Level ABG pH POC ABG pCO2 POC ABG pO2 ABG pO2 ABG HCO3 ABG O2 Saturation ABG Base Excess ABG Hemoglobin ABG Oxyhemoglobin VBG pH ABG Sodium ABG Potassium ABG Glucose Oxyhemoglobin Sodium Potassium Chloride Carbon Dioxide BUN Creatinine Glucose POC Glucose 182 H 150 H Lactic Acid Calcium Ferritin AST Alkaline Phosphatase Magnesium Lactate Dehydrogenase Total Creatine Kinase CK-MB (CK-2) C-Reactive Protein Total Protein Albumin Troponin T HDL Cholesterol Arterial Blood Glucose Urine WBC (Auto) Urine Creatinine Urine Total Protein Phenytoin Coronavirus (PCR) Crossmatch 06/09/20 06/09/20 06/09/20 05:16 05:24 11:29 WBC RBC Hgb Hct MCHC RDW Lymph % (Auto) [place] % (Auto) Eos % (Auto) Lymph # [place] # Lymph # (Auto) [place] # (Auto) Eos # (Auto) Seg Neutrophils % Seg Neuts % (Manual) Lymphocytes % (Manual) Seg Neutrophils # Seg Neutrophils # Man Lymphocytes # (Manual) Monocytes % (Manual) Eosinophils % (Manual) Monocytes # (Manual) Eosinophils # (Manual) D-Dimer Heparin Anti-Xa Level ABG pH POC ABG pCO2 POC ABG pO2 ABG pO2 ABG HCO3 ABG O2 Saturation ABG Base Excess ABG Hemoglobin ABG Oxyhemoglobin VBG pH ABG Sodium ABG Potassium ABG Glucose Oxyhemoglobin Sodium 133 L Potassium Chloride Carbon Dioxide 19 L BUN 109 H Creatinine 2.1 H Glucose 133 H POC Glucose 128 H 119 H Lactic Acid Calcium 7.7 L Ferritin AST Alkaline Phosphatase < 5 L Magnesium Lactate Dehydrogenase Total Creatine Kinase CK-MB (CK-2) C-Reactive Protein Total Protein 4.6 L Albumin < 0.2 L Troponin T HDL Cholesterol Arterial Blood Glucose Urine WBC (Auto) Urine Creatinine Urine Total Protein Phenytoin Coronavirus (PCR) Crossmatch 06/09/20 06/10/20 06/10/20 17:32 00:00 05:49 WBC RBC Hgb Hct MCHC RDW Lymph % (Auto) [place] % (Auto) Eos % (Auto) Lymph # [place] # Lymph # (Auto) [place] # (Auto) Eos # (Auto) Seg Neutrophils % Seg Neuts % (Manual) Lymphocytes % (Manual) Seg Neutrophils # Seg Neutrophils # Man Lymphocytes # (Manual) Monocytes % (Manual) Eosinophils % (Manual) Monocytes # (Manual) Eosinophils # (Manual) D-Dimer Heparin Anti-Xa Level 0.19 L ABG pH POC ABG pCO2 POC ABG pO2 ABG pO2 ABG HCO3 ABG O2 Saturation ABG Base Excess ABG Hemoglobin ABG Oxyhemoglobin VBG pH ABG Sodium ABG Potassium ABG Glucose Oxyhemoglobin Sodium Potassium Chloride Carbon Dioxide BUN Creatinine Glucose POC Glucose 106 H 117 H Lactic Acid Calcium Ferritin AST Alkaline Phosphatase Magnesium Lactate Dehydrogenase Total Creatine Kinase CK-MB (CK-2) C-Reactive Protein Total Protein Albumin Troponin T HDL Cholesterol Arterial Blood Glucose Urine WBC (Auto) Urine Creatinine Urine Total Protein Phenytoin Coronavirus (PCR) Crossmatch 06/10/20 06/10/20 06/10/20 05:54 07:40 11:40 WBC RBC Hgb Hct MCHC RDW Lymph % (Auto) [place] % (Auto) Eos % (Auto) Lymph # [place] # Lymph # (Auto) [place] # (Auto) Eos # (Auto) Seg Neutrophils % Seg Neuts % (Manual) Lymphocytes % (Manual) Seg Neutrophils # Seg Neutrophils # Man Lymphocytes # (Manual) Monocytes % (Manual) Eosinophils % (Manual) Monocytes # (Manual) Eosinophils # (Manual) D-Dimer Heparin Anti-Xa Level ABG pH POC ABG pCO2 POC ABG pO2 ABG pO2 ABG HCO3 ABG O2 Saturation ABG Base Excess ABG Hemoglobin ABG Oxyhemoglobin VBG pH ABG Sodium ABG Potassium ABG Glucose Oxyhemoglobin Sodium 146 H D Potassium Chloride Carbon Dioxide 20 L BUN 99 H Creatinine 1.9 H Glucose 121 H POC Glucose 127 H 138 H Lactic Acid Calcium 8.2 L Ferritin AST Alkaline Phosphatase Magnesium Lactate Dehydrogenase Total Creatine Kinase CK-MB (CK-2) C-Reactive Protein Total Protein Albumin Troponin T HDL Cholesterol Arterial Blood Glucose Urine WBC (Auto) Urine Creatinine Urine Total Protein Phenytoin Coronavirus (PCR) Crossmatch 06/10/20 06/10/20 06/10/20 14:44 17:31 23:22 WBC RBC Hgb Hct MCHC RDW Lymph % (Auto) [place] % (Auto) Eos % (Auto) Lymph # [place] # Lymph # (Auto) [place] # (Auto) Eos # (Auto) Seg Neutrophils % Seg Neuts % (Manual) Lymphocytes % (Manual) Seg Neutrophils # Seg Neutrophils # Man Lymphocytes # (Manual) Monocytes % (Manual) Eosinophils % (Manual) Monocytes # (Manual) Eosinophils # (Manual) D-Dimer Heparin Anti-Xa Level 0.17 L ABG pH POC ABG pCO2 POC ABG pO2 ABG pO2 ABG HCO3 ABG O2 Saturation ABG Base Excess ABG Hemoglobin ABG Oxyhemoglobin VBG pH ABG Sodium ABG Potassium ABG Glucose Oxyhemoglobin Sodium Potassium Chloride Carbon Dioxide BUN Creatinine Glucose POC Glucose 128 H 114 H Lactic Acid Calcium Ferritin AST Alkaline Phosphatase Magnesium Lactate Dehydrogenase Total Creatine Kinase CK-MB (CK-2) C-Reactive Protein Total Protein Albumin Troponin T HDL Cholesterol Arterial Blood Glucose Urine WBC (Auto) Urine Creatinine Urine Total Protein Phenytoin Coronavirus (PCR) Crossmatch 06/11/20 06/11/20 06/11/20 00:22 03:45 03:45 WBC 14.6 H RBC 2.77 L Hgb 7.9 L Hct 24.3 L MCHC RDW 16.8 H Lymph % (Auto) 6.6 L [place] % (Auto) 8.5 H Eos % (Auto) Lymph # 1.0 L [place] # 1.2 H Lymph # (Auto) [place] # (Auto) Eos # (Auto) Seg Neutrophils % 82.9 H Seg Neuts % (Manual) Lymphocytes % (Manual) Seg Neutrophils # 12.1 H Seg Neutrophils # Man Lymphocytes # (Manual) Monocytes % (Manual) Eosinophils % (Manual) Monocytes # (Manual) Eosinophils # (Manual) D-Dimer Heparin Anti-Xa Level 0.24 L ABG pH POC ABG pCO2 POC ABG pO2 ABG pO2 ABG HCO3 ABG O2 Saturation ABG Base Excess ABG Hemoglobin ABG Oxyhemoglobin VBG pH ABG Sodium ABG Potassium ABG Glucose Oxyhemoglobin Sodium Potassium Chloride Carbon Dioxide 20 L BUN 88 H Creatinine 1.5 H Glucose 111 H POC Glucose Lactic Acid Calcium 8.2 L Ferritin AST Alkaline Phosphatase Magnesium Lactate Dehydrogenase Total Creatine Kinase CK-MB (CK-2) C-Reactive Protein Total Protein Albumin Troponin T HDL Cholesterol Arterial Blood Glucose Urine WBC (Auto) Urine Creatinine Urine Total Protein Phenytoin Coronavirus (PCR) Crossmatch 06/11/20 06/11/20 06/11/20 06:03 10:22 11:11 WBC RBC Hgb Hct MCHC RDW Lymph % (Auto) [place] % (Auto) Eos % (Auto) Lymph # [place] # Lymph # (Auto) [place] # (Auto) Eos # (Auto) Seg Neutrophils % Seg Neuts % (Manual) Lymphocytes % (Manual) Seg Neutrophils # Seg Neutrophils # Man Lymphocytes # (Manual) Monocytes % (Manual) Eosinophils % (Manual) Monocytes # (Manual) Eosinophils # (Manual) D-Dimer Heparin Anti-Xa Level 0.26 L ABG pH POC ABG pCO2 POC ABG pO2 ABG pO2 ABG HCO3 ABG O2 Saturation ABG Base Excess ABG Hemoglobin 9.6 L ABG Oxyhemoglobin VBG pH ABG Sodium ABG Potassium ABG Glucose Oxyhemoglobin Sodium Potassium Chloride Carbon Dioxide BUN Creatinine Glucose POC Glucose 114 H Lactic Acid Calcium Ferritin AST Alkaline Phosphatase Magnesium Lactate Dehydrogenase Total Creatine Kinase CK-MB (CK-2) C-Reactive Protein Total Protein Albumin Troponin T HDL Cholesterol Arterial Blood Glucose Urine WBC (Auto) Urine Creatinine Urine Total Protein Phenytoin Coronavirus (PCR) Crossmatch 06/11/20 06/11/20 06/12/20 12:24 17:24 00:21 WBC RBC Hgb Hct MCHC RDW Lymph % (Auto) [place] % (Auto) Eos % (Auto) Lymph # [place] # Lymph # (Auto) [place] # (Auto) Eos # (Auto) Seg Neutrophils % Seg Neuts % (Manual) Lymphocytes % (Manual) Seg Neutrophils # Seg Neutrophils # Man Lymphocytes # (Manual) Monocytes % (Manual) Eosinophils % (Manual) Monocytes # (Manual) Eosinophils # (Manual) D-Dimer Heparin Anti-Xa Level ABG pH POC ABG pCO2 POC ABG pO2 ABG pO2 ABG HCO3 ABG O2 Saturation ABG Base Excess ABG Hemoglobin ABG Oxyhemoglobin VBG pH ABG Sodium ABG Potassium ABG Glucose Oxyhemoglobin Sodium Potassium Chloride Carbon Dioxide BUN Creatinine Glucose POC Glucose 119 H 126 H 117 H Lactic Acid Calcium Ferritin AST Alkaline Phosphatase Magnesium Lactate Dehydrogenase Total Creatine Kinase CK-MB (CK-2) C-Reactive Protein Total Protein Albumin Troponin T HDL Cholesterol Arterial Blood Glucose Urine WBC (Auto) Urine Creatinine Urine Total Protein Phenytoin Coronavirus (PCR) Crossmatch 06/12/20 06/12/20 06/12/20 02:46 02:46 05:46 WBC 13.2 H RBC 2.83 L Hgb 8.3 L Hct 24.3 L MCHC RDW 16.6 H Lymph % (Auto) 6.2 L [place] % (Auto) 9.5 H Eos % (Auto) Lymph # 0.8 L [place] # 1.3 H Lymph # (Auto) [place] # (Auto) Eos # (Auto) Seg Neutrophils % 81.9 H Seg Neuts % (Manual) Lymphocytes % (Manual) Seg Neutrophils # 10.9 H Seg Neutrophils # Man Lymphocytes # (Manual) Monocytes % (Manual) Eosinophils % (Manual) Monocytes # (Manual) Eosinophils # (Manual) D-Dimer Heparin Anti-Xa Level ABG pH POC ABG pCO2 POC ABG pO2 ABG pO2 ABG HCO3 ABG O2 Saturation ABG Base Excess ABG Hemoglobin ABG Oxyhemoglobin VBG pH ABG Sodium ABG Potassium ABG Glucose Oxyhemoglobin Sodium Potassium 3.5 L Chloride Carbon Dioxide BUN 77 H Creatinine 1.3 H Glucose POC Glucose 132 H Lactic Acid Calcium 8.3 L Ferritin AST Alkaline Phosphatase Magnesium Lactate Dehydrogenase Total Creatine Kinase CK-MB (CK-2) C-Reactive Protein Total Protein Albumin Troponin T HDL Cholesterol Arterial Blood Glucose Urine WBC (Auto) Urine Creatinine Urine Total Protein Phenytoin Coronavirus (PCR) Crossmatch 06/12/20 06/12/20 06/12/20 09:20 12:16 17:48 WBC RBC Hgb Hct MCHC RDW Lymph % (Auto) [place] % (Auto) Eos % (Auto) Lymph # [place] # Lymph # (Auto) [place] # (Auto) Eos # (Auto) Seg Neutrophils % Seg Neuts % (Manual) Lymphocytes % (Manual) Seg Neutrophils # Seg Neutrophils # Man Lymphocytes # (Manual) Monocytes % (Manual) Eosinophils % (Manual) Monocytes # (Manual) Eosinophils # (Manual) D-Dimer Heparin Anti-Xa Level ABG pH POC ABG pCO2 POC ABG pO2 ABG pO2 91.1 H ABG HCO3 ABG O2 Saturation ABG Base Excess ABG Hemoglobin ABG Oxyhemoglobin VBG pH ABG Sodium ABG Potassium ABG Glucose Oxyhemoglobin 94.8 L Sodium Potassium Chloride Carbon Dioxide BUN Creatinine Glucose POC Glucose 167 H 182 H Lactic Acid Calcium Ferritin AST Alkaline Phosphatase Magnesium Lactate Dehydrogenase Total Creatine Kinase CK-MB (CK-2) C-Reactive Protein Total Protein Albumin Troponin T HDL Cholesterol Arterial Blood Glucose Urine WBC (Auto) Urine Creatinine Urine Total Protein Phenytoin Coronavirus (PCR) Crossmatch 06/13/20 06/13/20 06/13/20 00:08 05:37 09:09 WBC RBC Hgb Hct MCHC RDW Lymph % (Auto) [place] % (Auto) Eos % (Auto) Lymph # [place] # Lymph # (Auto) [place] # (Auto) Eos # (Auto) Seg Neutrophils % Seg Neuts % (Manual) Lymphocytes % (Manual) Seg Neutrophils # Seg Neutrophils # Man Lymphocytes # (Manual) Monocytes % (Manual) Eosinophils % (Manual) Monocytes # (Manual) Eosinophils # (Manual) D-Dimer Heparin Anti-Xa Level 0.86 H ABG pH POC ABG pCO2 POC ABG pO2 ABG pO2 ABG HCO3 ABG O2 Saturation ABG Base Excess ABG Hemoglobin ABG Oxyhemoglobin VBG pH ABG Sodium ABG Potassium ABG Glucose Oxyhemoglobin Sodium Potassium Chloride Carbon Dioxide BUN Creatinine Glucose POC Glucose 142 H 119 H Lactic Acid Calcium Ferritin AST Alkaline Phosphatase Magnesium Lactate Dehydrogenase Total Creatine Kinase CK-MB (CK-2) C-Reactive Protein Total Protein Albumin Troponin T HDL Cholesterol Arterial Blood Glucose Urine WBC (Auto) Urine Creatinine Urine Total Protein Phenytoin Coronavirus (PCR) Crossmatch 06/13/20 06/13/20 06/13/20 12:28 17:55 21:17 WBC RBC Hgb Hct MCHC RDW Lymph % (Auto) [place] % (Auto) Eos % (Auto) Lymph # [place] # Lymph # (Auto) [place] # (Auto) Eos # (Auto) Seg Neutrophils % Seg Neuts % (Manual) Lymphocytes % (Manual) Seg Neutrophils # Seg Neutrophils # Man Lymphocytes # (Manual) Monocytes % (Manual) Eosinophils % (Manual) Monocytes # (Manual) Eosinophils # (Manual) D-Dimer Heparin Anti-Xa Level ABG pH POC ABG pCO2 POC ABG pO2 ABG pO2 ABG HCO3 ABG O2 Saturation ABG Base Excess ABG Hemoglobin ABG Oxyhemoglobin VBG pH ABG Sodium ABG Potassium ABG Glucose Oxyhemoglobin Sodium Potassium Chloride Carbon Dioxide BUN 61 H Creatinine Glucose 131 H POC Glucose 165 H 174 H Lactic Acid Calcium Ferritin AST Alkaline Phosphatase Magnesium Lactate Dehydrogenase Total Creatine Kinase CK-MB (CK-2) C-Reactive Protein Total Protein Albumin Troponin T HDL Cholesterol Arterial Blood Glucose Urine WBC (Auto) Urine Creatinine Urine Total Protein Phenytoin Coronavirus (PCR) Crossmatch 06/13/20 06/13/20 06/14/20 21:17 23:50 05:34 WBC RBC Hgb Hct MCHC RDW Lymph % (Auto) [place] % (Auto) Eos % (Auto) Lymph # [place] # Lymph # (Auto) [place] # (Auto) Eos # (Auto) Seg Neutrophils % Seg Neuts % (Manual) Lymphocytes % (Manual) Seg Neutrophils # Seg Neutrophils # Man Lymphocytes # (Manual) Monocytes % (Manual) Eosinophils % (Manual) Monocytes # (Manual) Eosinophils # (Manual) D-Dimer Heparin Anti-Xa Level 0.72 H ABG pH POC ABG pCO2 POC ABG pO2 ABG pO2 ABG HCO3 ABG O2 Saturation ABG Base Excess ABG Hemoglobin ABG Oxyhemoglobin VBG pH ABG Sodium ABG Potassium ABG Glucose Oxyhemoglobin Sodium 146 H Potassium Chloride 107.6 H Carbon Dioxide BUN 61 H Creatinine 1.3 H Glucose 135 H POC Glucose 146 H Lactic Acid Calcium Ferritin AST Alkaline Phosphatase Magnesium Lactate Dehydrogenase Total Creatine Kinase CK-MB (CK-2) C-Reactive Protein Total Protein Albumin Troponin T HDL Cholesterol Arterial Blood Glucose Urine WBC (Auto) Urine Creatinine Urine Total Protein Phenytoin Coronavirus (PCR) Crossmatch 06/14/20 06/14/20 06/14/20 06:11 09:28 11:30 WBC RBC Hgb Hct MCHC RDW Lymph % (Auto) [place] % (Auto) Eos % (Auto) Lymph # [place] # Lymph # (Auto) [place] # (Auto) Eos # (Auto) Seg Neutrophils % Seg Neuts % (Manual) Lymphocytes % (Manual) Seg Neutrophils # Seg Neutrophils # Man Lymphocytes # (Manual) Monocytes % (Manual) Eosinophils % (Manual) Monocytes # (Manual) Eosinophils # (Manual) D-Dimer Heparin Anti-Xa Level 0.90 H ABG pH POC ABG pCO2 POC ABG pO2 ABG pO2 ABG HCO3 ABG O2 Saturation ABG Base Excess ABG Hemoglobin ABG Oxyhemoglobin VBG pH ABG Sodium ABG Potassium ABG Glucose Oxyhemoglobin Sodium Potassium Chloride Carbon Dioxide BUN Creatinine Glucose POC Glucose 141 H 186 H Lactic Acid Calcium Ferritin AST Alkaline Phosphatase Magnesium Lactate Dehydrogenase Total Creatine Kinase CK-MB (CK-2) C-Reactive Protein Total Protein Albumin Troponin T HDL Cholesterol Arterial Blood Glucose Urine WBC (Auto) Urine Creatinine Urine Total Protein Phenytoin Coronavirus (PCR) Crossmatch 06/14/20 06/14/20 06/14/20 16:07 18:16 23:51 WBC RBC Hgb Hct MCHC RDW Lymph % (Auto) [place] % (Auto) Eos % (Auto) Lymph # [place] # Lymph # (Auto) [place] # (Auto) Eos # (Auto) Seg Neutrophils % Seg Neuts % (Manual) Lymphocytes % (Manual) Seg Neutrophils # Seg Neutrophils # Man Lymphocytes # (Manual) Monocytes % (Manual) Eosinophils % (Manual) Monocytes # (Manual) Eosinophils # (Manual) D-Dimer Heparin Anti-Xa Level 0.82 H ABG pH POC ABG pCO2 POC ABG pO2 ABG pO2 ABG HCO3 ABG O2 Saturation ABG Base Excess ABG Hemoglobin ABG Oxyhemoglobin VBG pH ABG Sodium ABG Potassium ABG Glucose Oxyhemoglobin Sodium Potassium Chloride Carbon Dioxide BUN Creatinine Glucose POC Glucose 106 H 154 H Lactic Acid Calcium Ferritin AST Alkaline Phosphatase Magnesium Lactate Dehydrogenase Total Creatine Kinase CK-MB (CK-2) C-Reactive Protein Total Protein Albumin Troponin T HDL Cholesterol Arterial Blood Glucose Urine WBC (Auto) Urine Creatinine Urine Total Protein Phenytoin Coronavirus (PCR) Crossmatch 06/15/20 06/15/20 06/15/20 04:24 04:24 05:59 WBC RBC 2.75 L Hgb 7.9 L Hct 24.0 L MCHC RDW 16.4 H Lymph % (Auto) 12.9 L [place] % (Auto) 8.7 H Eos % (Auto) 4.6 H Lymph # 1.1 L [place] # Lymph # (Auto) [place] # (Auto) Eos # (Auto) Seg Neutrophils % 73.2 H Seg Neuts % (Manual) Lymphocytes % (Manual) Seg Neutrophils # Seg Neutrophils # Man Lymphocytes # (Manual) Monocytes % (Manual) Eosinophils % (Manual) Monocytes # (Manual) Eosinophils # (Manual) D-Dimer Heparin Anti-Xa Level ABG pH POC ABG pCO2 POC ABG pO2 ABG pO2 ABG HCO3 ABG O2 Saturation ABG Base Excess ABG Hemoglobin ABG Oxyhemoglobin VBG pH ABG Sodium ABG Potassium ABG Glucose Oxyhemoglobin Sodium Potassium 3.4 L Chloride Carbon Dioxide BUN 55 H Creatinine 1.3 H Glucose 142 H POC Glucose 131 H Lactic Acid Calcium Ferritin AST Alkaline Phosphatase Magnesium Lactate Dehydrogenase Total Creatine Kinase CK-MB (CK-2) C-Reactive Protein Total Protein Albumin Troponin T HDL Cholesterol Arterial Blood Glucose Urine WBC (Auto) Urine Creatinine Urine Total Protein Phenytoin Coronavirus (PCR) Crossmatch 06/15/20 06/15/20 06/16/20 12:33 17:07 00:22 WBC RBC Hgb Hct MCHC RDW Lymph % (Auto) [place] % (Auto) Eos % (Auto) Lymph # [place] # Lymph # (Auto) [place] # (Auto) Eos # (Auto) Seg Neutrophils % Seg Neuts % (Manual) Lymphocytes % (Manual) Seg Neutrophils # Seg Neutrophils # Man Lymphocytes # (Manual) Monocytes % (Manual) Eosinophils % (Manual) Monocytes # (Manual) Eosinophils # (Manual) D-Dimer Heparin Anti-Xa Level 0.21 L ABG pH POC ABG pCO2 POC ABG pO2 ABG pO2 ABG HCO3 ABG O2 Saturation ABG Base Excess ABG Hemoglobin ABG Oxyhemoglobin VBG pH ABG Sodium ABG Potassium ABG Glucose Oxyhemoglobin Sodium Potassium Chloride Carbon Dioxide BUN Creatinine Glucose POC Glucose 180 H 185 H Lactic Acid Calcium Ferritin AST Alkaline Phosphatase Magnesium Lactate Dehydrogenase Total Creatine Kinase CK-MB (CK-2) C-Reactive Protein Total Protein Albumin Troponin T HDL Cholesterol Arterial Blood Glucose Urine WBC (Auto) Urine Creatinine Urine Total Protein Phenytoin Coronavirus (PCR) Crossmatch 06/16/20 06/16/20 06/16/20 01:45 08:06 09:15 WBC RBC Hgb Hct MCHC RDW Lymph % (Auto) [place] % (Auto) Eos % (Auto) Lymph # [place] # Lymph # (Auto) [place] # (Auto) Eos # (Auto) Seg Neutrophils % Seg Neuts % (Manual) Lymphocytes % (Manual) Seg Neutrophils # Seg Neutrophils # Man Lymphocytes # (Manual) Monocytes % (Manual) Eosinophils % (Manual) Monocytes # (Manual) Eosinophils # (Manual) D-Dimer Heparin Anti-Xa Level ABG pH POC ABG pCO2 POC ABG pO2 ABG pO2 ABG HCO3 ABG O2 Saturation ABG Base Excess ABG Hemoglobin ABG Oxyhemoglobin VBG pH ABG Sodium ABG Potassium ABG Glucose Oxyhemoglobin Sodium Potassium Chloride Carbon Dioxide BUN 49 H Creatinine Glucose 154 H POC Glucose 140 H 171 H Lactic Acid Calcium Ferritin AST Alkaline Phosphatase Magnesium Lactate Dehydrogenase Total Creatine Kinase CK-MB (CK-2) C-Reactive Protein Total Protein Albumin Troponin T HDL Cholesterol Arterial Blood Glucose Urine WBC (Auto) Urine Creatinine Urine Total Protein Phenytoin Coronavirus (PCR) Crossmatch 06/16/20 06/16/20 06/16/20 10:46 12:33 17:54 WBC RBC Hgb Hct MCHC RDW Lymph % (Auto) [place] % (Auto) Eos % (Auto) Lymph # [place] # Lymph # (Auto) [place] # (Auto) Eos # (Auto) Seg Neutrophils % Seg Neuts % (Manual) Lymphocytes % (Manual) Seg Neutrophils # Seg Neutrophils # Man Lymphocytes # (Manual) Monocytes % (Manual) Eosinophils % (Manual) Monocytes # (Manual) Eosinophils # (Manual) D-Dimer Heparin Anti-Xa Level 0.12 L ABG pH POC ABG pCO2 POC ABG pO2 ABG pO2 ABG HCO3 ABG O2 Saturation ABG Base Excess ABG Hemoglobin ABG Oxyhemoglobin VBG pH ABG Sodium ABG Potassium ABG Glucose Oxyhemoglobin Sodium Potassium Chloride Carbon Dioxide BUN Creatinine Glucose POC Glucose 166 H 151 H Lactic Acid Calcium Ferritin AST Alkaline Phosphatase Magnesium Lactate Dehydrogenase Total Creatine Kinase CK-MB (CK-2) C-Reactive Protein Total Protein Albumin Troponin T HDL Cholesterol Arterial Blood Glucose Urine WBC (Auto) Urine Creatinine Urine Total Protein Phenytoin Coronavirus (PCR) Crossmatch 06/16/20 06/17/20 06/17/20 18:47 00:00 02:19 WBC RBC Hgb Hct MCHC RDW Lymph % (Auto) [place] % (Auto) Eos % (Auto) Lymph # [place] # Lymph # (Auto) [place] # (Auto) Eos # (Auto) Seg Neutrophils % Seg Neuts % (Manual) Lymphocytes % (Manual) Seg Neutrophils # Seg Neutrophils # Man Lymphocytes # (Manual) Monocytes % (Manual) Eosinophils % (Manual) Monocytes # (Manual) Eosinophils # (Manual) D-Dimer Heparin Anti-Xa Level 0.73 H 0.77 H ABG pH POC ABG pCO2 POC ABG pO2 ABG pO2 ABG HCO3 ABG O2 Saturation ABG Base Excess ABG Hemoglobin ABG Oxyhemoglobin VBG pH ABG Sodium ABG Potassium ABG Glucose Oxyhemoglobin Sodium Potassium Chloride Carbon Dioxide BUN Creatinine Glucose POC Glucose 139 H Lactic Acid Calcium Ferritin AST Alkaline Phosphatase Magnesium Lactate Dehydrogenase Total Creatine Kinase CK-MB (CK-2) C-Reactive Protein Total Protein Albumin Troponin T HDL Cholesterol Arterial Blood Glucose Urine WBC (Auto) Urine Creatinine Urine Total Protein Phenytoin Coronavirus (PCR) Crossmatch 06/17/20 06/17/20 06/17/20 06:07 11:42 16:43 WBC RBC Hgb Hct MCHC RDW Lymph % (Auto) [place] % (Auto) Eos % (Auto) Lymph # [place] # Lymph # (Auto) [place] # (Auto) Eos # (Auto) Seg Neutrophils % Seg Neuts % (Manual) Lymphocytes % (Manual) Seg Neutrophils # Seg Neutrophils # Man Lymphocytes # (Manual) Monocytes % (Manual) Eosinophils % (Manual) Monocytes # (Manual) Eosinophils # (Manual) D-Dimer Heparin Anti-Xa Level 0.73 H ABG pH POC ABG pCO2 POC ABG pO2 ABG pO2 ABG HCO3 ABG O2 Saturation ABG Base Excess ABG Hemoglobin ABG Oxyhemoglobin VBG pH ABG Sodium ABG Potassium ABG Glucose Oxyhemoglobin Sodium Potassium Chloride Carbon Dioxide BUN Creatinine Glucose POC Glucose 169 H 169 H Lactic Acid Calcium Ferritin AST Alkaline Phosphatase Magnesium Lactate Dehydrogenase Total Creatine Kinase CK-MB (CK-2) C-Reactive Protein Total Protein Albumin Troponin T HDL Cholesterol Arterial Blood Glucose Urine WBC (Auto) Urine Creatinine Urine Total Protein Phenytoin Coronavirus (PCR) Crossmatch 06/17/20 06/17/20 06/17/20 18:18 23:08 23:16 WBC RBC Hgb Hct MCHC RDW Lymph % (Auto) [place] % (Auto) Eos % (Auto) Lymph # [place] # Lymph # (Auto) [place] # (Auto) Eos # (Auto) Seg Neutrophils % Seg Neuts % (Manual) Lymphocytes % (Manual) Seg Neutrophils # Seg Neutrophils # Man Lymphocytes # (Manual) Monocytes % (Manual) Eosinophils % (Manual) Monocytes # (Manual) Eosinophils # (Manual) D-Dimer Heparin Anti-Xa Level 0.71 H ABG pH POC ABG pCO2 POC ABG pO2 ABG pO2 ABG HCO3 ABG O2 Saturation ABG Base Excess ABG Hemoglobin ABG Oxyhemoglobin VBG pH ABG Sodium ABG Potassium ABG Glucose Oxyhemoglobin Sodium Potassium Chloride Carbon Dioxide BUN Creatinine Glucose POC Glucose 159 H 134 H Lactic Acid Calcium Ferritin AST Alkaline Phosphatase Magnesium Lactate Dehydrogenase Total Creatine Kinase CK-MB (CK-2) C-Reactive Protein Total Protein Albumin Troponin T HDL Cholesterol Arterial Blood Glucose Urine WBC (Auto) Urine Creatinine Urine Total Protein Phenytoin Coronavirus (PCR) Crossmatch 06/18/20 06/18/20 06/18/20 04:42 05:52 11:50 WBC RBC Hgb Hct MCHC RDW Lymph % (Auto) [place] % (Auto) Eos % (Auto) Lymph # [place] # Lymph # (Auto) [place] # (Auto) Eos # (Auto) Seg Neutrophils % Seg Neuts % (Manual) Lymphocytes % (Manual) Seg Neutrophils # Seg Neutrophils # Man Lymphocytes # (Manual) Monocytes % (Manual) Eosinophils % (Manual) Monocytes # (Manual) Eosinophils # (Manual) D-Dimer Heparin Anti-Xa Level ABG pH POC ABG pCO2 POC ABG pO2 ABG pO2 ABG HCO3 ABG O2 Saturation ABG Base Excess ABG Hemoglobin ABG Oxyhemoglobin VBG pH ABG Sodium ABG Potassium ABG Glucose Oxyhemoglobin Sodium Potassium Chloride Carbon Dioxide BUN 44 H Creatinine Glucose 115 H POC Glucose 171 H 167 H Lactic Acid Calcium Ferritin AST Alkaline Phosphatase Magnesium Lactate Dehydrogenase Total Creatine Kinase CK-MB (CK-2) C-Reactive Protein Total Protein Albumin Troponin T HDL Cholesterol Arterial Blood Glucose Urine WBC (Auto) Urine Creatinine Urine Total Protein Phenytoin Coronavirus (PCR) Crossmatch 06/18/20 06/19/20 06/19/20 23:46 05:48 07:52 WBC RBC Hgb Hct MCHC RDW Lymph % (Auto) [place] % (Auto) Eos % (Auto) Lymph # [place] # Lymph # (Auto) [place] # (Auto) Eos # (Auto) Seg Neutrophils % Seg Neuts % (Manual) Lymphocytes % (Manual) Seg Neutrophils # Seg Neutrophils # Man Lymphocytes # (Manual) Monocytes % (Manual) Eosinophils % (Manual) Monocytes # (Manual) Eosinophils # (Manual) D-Dimer Heparin Anti-Xa Level ABG pH POC ABG pCO2 POC ABG pO2 ABG pO2 ABG HCO3 ABG O2 Saturation ABG Base Excess ABG Hemoglobin ABG Oxyhemoglobin VBG pH ABG Sodium ABG Potassium ABG Glucose Oxyhemoglobin Sodium Potassium Chloride Carbon Dioxide BUN Creatinine Glucose POC Glucose 130 H 207 H 175 H Lactic Acid Calcium Ferritin AST Alkaline Phosphatase Magnesium Lactate Dehydrogenase Total Creatine Kinase CK-MB (CK-2) C-Reactive Protein Total Protein Albumin Troponin T HDL Cholesterol Arterial Blood Glucose Urine WBC (Auto) Urine Creatinine Urine Total Protein Phenytoin Coronavirus (PCR) Crossmatch 06/19/20 06/19/20 06/20/20 11:42 22:54 05:17 WBC RBC Hgb Hct MCHC RDW Lymph % (Auto) [place] % (Auto) Eos % (Auto) Lymph # [place] # Lymph # (Auto) [place] # (Auto) Eos # (Auto) Seg Neutrophils % Seg Neuts % (Manual) Lymphocytes % (Manual) Seg Neutrophils # Seg Neutrophils # Man Lymphocytes # (Manual) Monocytes % (Manual) Eosinophils % (Manual) Monocytes # (Manual) Eosinophils # (Manual) D-Dimer Heparin Anti-Xa Level ABG pH POC ABG pCO2 POC ABG pO2 ABG pO2 ABG HCO3 ABG O2 Saturation ABG Base Excess ABG Hemoglobin ABG Oxyhemoglobin VBG pH ABG Sodium ABG Potassium ABG Glucose Oxyhemoglobin Sodium Potassium Chloride Carbon Dioxide BUN Creatinine Glucose POC Glucose 166 H 135 H 218 H Lactic Acid Calcium Ferritin AST Alkaline Phosphatase Magnesium Lactate Dehydrogenase Total Creatine Kinase CK-MB (CK-2) C-Reactive Protein Total Protein Albumin Troponin T HDL Cholesterol Arterial Blood Glucose Urine WBC (Auto) Urine Creatinine Urine Total Protein Phenytoin Coronavirus (PCR) Crossmatch 06/20/20 06/20/20 06/20/20 12:04 16:25 16:35 WBC RBC Hgb Hct MCHC RDW Lymph % (Auto) [place] % (Auto) Eos % (Auto) Lymph # [place] # Lymph # (Auto) [place] # (Auto) Eos # (Auto) Seg Neutrophils % Seg Neuts % (Manual) Lymphocytes % (Manual) Seg Neutrophils # Seg Neutrophils # Man Lymphocytes # (Manual) Monocytes % (Manual) Eosinophils % (Manual) Monocytes # (Manual) Eosinophils # (Manual) D-Dimer Heparin Anti-Xa Level ABG pH POC ABG pCO2 POC ABG pO2 ABG pO2 59.6 L ABG HCO3 28.7 H ABG O2 Saturation 93.5 L ABG Base Excess 3.4 H ABG Hemoglobin 7.2 L ABG Oxyhemoglobin VBG pH ABG Sodium ABG Potassium ABG Glucose Oxyhemoglobin 91.3 L Sodium Potassium Chloride Carbon Dioxide BUN Creatinine Glucose POC Glucose 194 H 137 H Lactic Acid Calcium Ferritin AST Alkaline Phosphatase Magnesium Lactate Dehydrogenase Total Creatine Kinase CK-MB (CK-2) C-Reactive Protein Total Protein Albumin Troponin T HDL Cholesterol Arterial Blood Glucose Urine WBC (Auto) Urine Creatinine Urine Total Protein Phenytoin Coronavirus (PCR) Crossmatch 06/20/20 06/21/20 06/21/20 23:59 06:25 12:01 WBC RBC Hgb Hct MCHC RDW Lymph % (Auto) [place] % (Auto) Eos % (Auto) Lymph # [place] # Lymph # (Auto) [place] # (Auto) Eos # (Auto) Seg Neutrophils % Seg Neuts % (Manual) Lymphocytes % (Manual) Seg Neutrophils # Seg Neutrophils # Man Lymphocytes # (Manual) Monocytes % (Manual) Eosinophils % (Manual) Monocytes # (Manual) Eosinophils # (Manual) D-Dimer Heparin Anti-Xa Level ABG pH POC ABG pCO2 POC ABG pO2 ABG pO2 ABG HCO3 ABG O2 Saturation ABG Base Excess ABG Hemoglobin ABG Oxyhemoglobin VBG pH ABG Sodium ABG Potassium ABG Glucose Oxyhemoglobin Sodium Potassium Chloride Carbon Dioxide BUN Creatinine Glucose POC Glucose 156 H 177 H 195 H Lactic Acid Calcium Ferritin AST Alkaline Phosphatase Magnesium Lactate Dehydrogenase Total Creatine Kinase CK-MB (CK-2) C-Reactive Protein Total Protein Albumin Troponin T HDL Cholesterol Arterial Blood Glucose Urine WBC (Auto) Urine Creatinine Urine Total Protein Phenytoin Coronavirus (PCR) Crossmatch 06/21/20 06/21/20 06/22/20 17:04 21:51 05:06 WBC RBC Hgb Hct MCHC RDW Lymph % (Auto) [place] % (Auto) Eos % (Auto) Lymph # [place] # Lymph # (Auto) [place] # (Auto) Eos # (Auto) Seg Neutrophils % Seg Neuts % (Manual) Lymphocytes % (Manual) Seg Neutrophils # Seg Neutrophils # Man Lymphocytes # (Manual) Monocytes % (Manual) Eosinophils % (Manual) Monocytes # (Manual) Eosinophils # (Manual) D-Dimer Heparin Anti-Xa Level ABG pH POC ABG pCO2 POC ABG pO2 ABG pO2 ABG HCO3 ABG O2 Saturation ABG Base Excess ABG Hemoglobin ABG Oxyhemoglobin VBG pH ABG Sodium ABG Potassium ABG Glucose Oxyhemoglobin Sodium Potassium Chloride Carbon Dioxide BUN Creatinine Glucose POC Glucose 156 H 154 H 167 H Lactic Acid Calcium Ferritin AST Alkaline Phosphatase Magnesium Lactate Dehydrogenase Total Creatine Kinase CK-MB (CK-2) C-Reactive Protein Total Protein Albumin Troponin T HDL Cholesterol Arterial Blood Glucose Urine WBC (Auto) Urine Creatinine Urine Total Protein Phenytoin Coronavirus (PCR) Crossmatch 06/22/20 06/22/20 06/22/20 11:20 15:27 16:58 WBC RBC Hgb Hct MCHC RDW Lymph % (Auto) [place] % (Auto) Eos % (Auto) Lymph # [place] # Lymph # (Auto) [place] # (Auto) Eos # (Auto) Seg Neutrophils % Seg Neuts % (Manual) Lymphocytes % (Manual) Seg Neutrophils # Seg Neutrophils # Man Lymphocytes # (Manual) Monocytes % (Manual) Eosinophils % (Manual) Monocytes # (Manual) Eosinophils # (Manual) D-Dimer Heparin Anti-Xa Level ABG pH 7.206 L POC ABG pCO2 79.9 H POC ABG pO2 ABG pO2 ABG HCO3 ABG O2 Saturation ABG Base Excess ABG Hemoglobin 8.3 L ABG Oxyhemoglobin VBG pH ABG Sodium ABG Potassium ABG Glucose Oxyhemoglobin Sodium Potassium Chloride Carbon Dioxide BUN Creatinine Glucose POC Glucose 181 H 230 H Lactic Acid Calcium Ferritin AST Alkaline Phosphatase Magnesium Lactate Dehydrogenase Total Creatine Kinase CK-MB (CK-2) C-Reactive Protein Total Protein Albumin Troponin T HDL Cholesterol Arterial Blood Glucose Urine WBC (Auto) Urine Creatinine Urine Total Protein Phenytoin Coronavirus (PCR) Crossmatch 06/22/20 06/23/20 06/23/20 22:26 05:49 05:49 WBC RBC 2.58 L Hgb 7.4 L Hct 23.2 L MCHC RDW 17.0 H Lymph % (Auto) [place] % (Auto) 11.2 H Eos % (Auto) Lymph # 1.0 L [place] # Lymph # (Auto) [place] # (Auto) Eos # (Auto) Seg Neutrophils % Seg Neuts % (Manual) Lymphocytes % (Manual) Seg Neutrophils # Seg Neutrophils # Man Lymphocytes # (Manual) Monocytes % (Manual) Eosinophils % (Manual) Monocytes # (Manual) Eosinophils # (Manual) D-Dimer Heparin Anti-Xa Level ABG pH POC ABG pCO2 POC ABG pO2 ABG pO2 ABG HCO3 ABG O2 Saturation ABG Base Excess ABG Hemoglobin ABG Oxyhemoglobin VBG pH ABG Sodium ABG Potassium ABG Glucose Oxyhemoglobin Sodium Potassium Chloride Carbon Dioxide BUN 68 H Creatinine 2.4 H Glucose 198 H POC Glucose 195 H Lactic Acid Calcium Ferritin AST Alkaline Phosphatase Magnesium Lactate Dehydrogenase Total Creatine Kinase CK-MB (CK-2) C-Reactive Protein Total Protein Albumin Troponin T HDL Cholesterol Arterial Blood Glucose Urine WBC (Auto) Urine Creatinine Urine Total Protein Phenytoin Coronavirus (PCR) Crossmatch 06/23/20 06/23/20 06/23/20 05:50 12:29 12:34 WBC RBC Hgb Hct MCHC RDW Lymph % (Auto) [place] % (Auto) Eos % (Auto) Lymph # [place] # Lymph # (Auto) [place] # (Auto) Eos # (Auto) Seg Neutrophils % Seg Neuts % (Manual) Lymphocytes % (Manual) Seg Neutrophils # Seg Neutrophils # Man Lymphocytes # (Manual) Monocytes % (Manual) Eosinophils % (Manual) Monocytes # (Manual) Eosinophils # (Manual) D-Dimer Heparin Anti-Xa Level ABG pH POC ABG pCO2 54.7 H POC ABG pO2 68.8 L ABG pO2 ABG HCO3 ABG O2 Saturation ABG Base Excess ABG Hemoglobin 9.8 L ABG Oxyhemoglobin 92.6 L VBG pH ABG Sodium ABG Potassium ABG Glucose Oxyhemoglobin Sodium Potassium Chloride Carbon Dioxide BUN Creatinine Glucose POC Glucose 202 H 218 H Lactic Acid Calcium Ferritin AST Alkaline Phosphatase Magnesium Lactate Dehydrogenase Total Creatine Kinase CK-MB (CK-2) C-Reactive Protein Total Protein Albumin Troponin T HDL Cholesterol Arterial Blood Glucose Urine WBC (Auto) Urine Creatinine Urine Total Protein Phenytoin Coronavirus (PCR) Crossmatch 06/23/20 06/23/20 06/24/20 16:02 22:22 01:06 WBC RBC Hgb Hct MCHC RDW Lymph % (Auto) [place] % (Auto) Eos % (Auto) Lymph # [place] # Lymph # (Auto) [place] # (Auto) Eos # (Auto) Seg Neutrophils % Seg Neuts % (Manual) Lymphocytes % (Manual) Seg Neutrophils # Seg Neutrophils # Man Lymphocytes # (Manual) Monocytes % (Manual) Eosinophils % (Manual) Monocytes # (Manual) Eosinophils # (Manual) D-Dimer Heparin Anti-Xa Level ABG pH POC ABG pCO2 POC ABG pO2 ABG pO2 ABG HCO3 ABG O2 Saturation ABG Base Excess ABG Hemoglobin ABG Oxyhemoglobin VBG pH ABG Sodium ABG Potassium ABG Glucose Oxyhemoglobin Sodium Potassium Chloride Carbon Dioxide BUN Creatinine Glucose POC Glucose 190 H 166 H 171 H Lactic Acid Calcium Ferritin AST Alkaline Phosphatase Magnesium Lactate Dehydrogenase Total Creatine Kinase CK-MB (CK-2) C-Reactive Protein Total Protein Albumin Troponin T HDL Cholesterol Arterial Blood Glucose Urine WBC (Auto) Urine Creatinine Urine Total Protein Phenytoin Coronavirus (PCR) Crossmatch 06/24/20 06/24/20 06/24/20 04:48 05:35 11:48 WBC RBC Hgb Hct MCHC RDW Lymph % (Auto) [place] % (Auto) Eos % (Auto) Lymph # [place] # Lymph # (Auto) [place] # (Auto) Eos # (Auto) Seg Neutrophils % Seg Neuts % (Manual) Lymphocytes % (Manual) Seg Neutrophils # Seg Neutrophils # Man Lymphocytes # (Manual) Monocytes % (Manual) Eosinophils % (Manual) Monocytes # (Manual) Eosinophils # (Manual) D-Dimer Heparin Anti-Xa Level ABG pH POC ABG pCO2 POC ABG pO2 ABG pO2 ABG HCO3 ABG O2 Saturation ABG Base Excess ABG Hemoglobin ABG Oxyhemoglobin VBG pH ABG Sodium ABG Potassium ABG Glucose Oxyhemoglobin Sodium Potassium Chloride Carbon Dioxide BUN 75 H Creatinine 2.6 H Glucose 179 H POC Glucose 172 H 153 H Lactic Acid Calcium Ferritin AST Alkaline Phosphatase Magnesium Lactate Dehydrogenase Total Creatine Kinase CK-MB (CK-2) C-Reactive Protein Total Protein Albumin Troponin T HDL Cholesterol Arterial Blood Glucose Urine WBC (Auto) Urine Creatinine Urine Total Protein Phenytoin Coronavirus (PCR) Crossmatch 06/24/20 06/24/20 06/25/20 16:38 21:52 12:00 WBC RBC Hgb Hct MCHC RDW Lymph % (Auto) [place] % (Auto) Eos % (Auto) Lymph # [place] # Lymph # (Auto) [place] # (Auto) Eos # (Auto) Seg Neutrophils % Seg Neuts % (Manual) Lymphocytes % (Manual) Seg Neutrophils # Seg Neutrophils # Man Lymphocytes # (Manual) Monocytes % (Manual) Eosinophils % (Manual) Monocytes # (Manual) Eosinophils # (Manual) D-Dimer Heparin Anti-Xa Level ABG pH POC ABG pCO2 POC ABG pO2 ABG pO2 ABG HCO3 ABG O2 Saturation ABG Base Excess ABG Hemoglobin ABG Oxyhemoglobin VBG pH ABG Sodium ABG Potassium ABG Glucose Oxyhemoglobin Sodium Potassium Chloride Carbon Dioxide BUN Creatinine Glucose POC Glucose 123 H 115 H 203 H Lactic Acid Calcium Ferritin AST Alkaline Phosphatase Magnesium Lactate Dehydrogenase Total Creatine Kinase CK-MB (CK-2) C-Reactive Protein Total Protein Albumin Troponin T HDL Cholesterol Arterial Blood Glucose Urine WBC (Auto) Urine Creatinine Urine Total Protein Phenytoin Coronavirus (PCR) Crossmatch 06/25/20 06/25/20 06/25/20 15:43 16:37 23:02 WBC RBC Hgb Hct MCHC RDW Lymph % (Auto) [place] % (Auto) Eos % (Auto) Lymph # [place] # Lymph # (Auto) [place] # (Auto) Eos # (Auto) Seg Neutrophils % Seg Neuts % (Manual) Lymphocytes % (Manual) Seg Neutrophils # Seg Neutrophils # Man Lymphocytes # (Manual) Monocytes % (Manual) Eosinophils % (Manual) Monocytes # (Manual) Eosinophils # (Manual) D-Dimer Heparin Anti-Xa Level ABG pH POC ABG pCO2 POC ABG pO2 ABG pO2 ABG HCO3 ABG O2 Saturation ABG Base Excess ABG Hemoglobin ABG Oxyhemoglobin VBG pH ABG Sodium ABG Potassium ABG Glucose Oxyhemoglobin Sodium Potassium Chloride Carbon Dioxide BUN 71 H Creatinine 1.8 H Glucose 170 H POC Glucose 191 H 126 H Lactic Acid Calcium 8.2 L Ferritin AST Alkaline Phosphatase Magnesium Lactate Dehydrogenase Total Creatine Kinase CK-MB (CK-2) C-Reactive Protein Total Protein Albumin Troponin T HDL Cholesterol Arterial Blood Glucose Urine WBC (Auto) Urine Creatinine Urine Total Protein Phenytoin Coronavirus (PCR) Crossmatch 06/26/20 06/26/20 06/26/20 06:34 06:34 09:27 WBC RBC 2.41 L Hgb 6.9 L Hct 21.5 L MCHC RDW 16.7 H Lymph % (Auto) 10.9 L [place] % (Auto) 9.6 H Eos % (Auto) Lymph # 0.7 L [place] # Lymph # (Auto) [place] # (Auto) Eos # (Auto) Seg Neutrophils % 75.4 H Seg Neuts % (Manual) Lymphocytes % (Manual) Seg Neutrophils # Seg Neutrophils # Man Lymphocytes # (Manual) Monocytes % (Manual) Eosinophils % (Manual) Monocytes # (Manual) Eosinophils # (Manual) D-Dimer Heparin Anti-Xa Level ABG pH POC ABG pCO2 POC ABG pO2 ABG pO2 ABG HCO3 ABG O2 Saturation ABG Base Excess ABG Hemoglobin ABG Oxyhemoglobin VBG pH ABG Sodium ABG Potassium ABG Glucose Oxyhemoglobin Sodium Potassium Chloride Carbon Dioxide BUN 77 H Creatinine 1.9 H Glucose 190 H POC Glucose Lactic Acid Calcium Ferritin AST Alkaline Phosphatase Magnesium Lactate Dehydrogenase Total Creatine Kinase CK-MB (CK-2) C-Reactive Protein Total Protein Albumin Troponin T HDL Cholesterol Arterial Blood Glucose Urine WBC (Auto) Urine Creatinine Urine Total Protein Phenytoin Coronavirus (PCR) Crossmatch See Detail 06/26/20 06/26/20 06/26/20 12:15 16:28 17:28 WBC RBC Hgb Hct MCHC RDW Lymph % (Auto) [place] % (Auto) Eos % (Auto) Lymph # [place] # Lymph # (Auto) [place] # (Auto) Eos # (Auto) Seg Neutrophils % Seg Neuts % (Manual) Lymphocytes % (Manual) Seg Neutrophils # Seg Neutrophils # Man Lymphocytes # (Manual) Monocytes % (Manual) Eosinophils % (Manual) Monocytes # (Manual) Eosinophils # (Manual) D-Dimer Heparin Anti-Xa Level ABG pH POC ABG pCO2 POC ABG pO2 ABG pO2 ABG HCO3 ABG O2 Saturation ABG Base Excess ABG Hemoglobin ABG Oxyhemoglobin VBG pH ABG Sodium ABG Potassium ABG Glucose Oxyhemoglobin Sodium Potassium Chloride Carbon Dioxide BUN Creatinine Glucose POC Glucose 187 H 149 H 189 H Lactic Acid Calcium Ferritin AST Alkaline Phosphatase Magnesium Lactate Dehydrogenase Total Creatine Kinase CK-MB (CK-2) C-Reactive Protein Total Protein Albumin Troponin T HDL Cholesterol Arterial Blood Glucose Urine WBC (Auto) Urine Creatinine Urine Total Protein Phenytoin Coronavirus (PCR) Crossmatch 06/26/20 06/26/20 06/26/20 18:30 18:30 18:30 WBC RBC 2.87 L Hgb 8.2 L Hct 25.9 L MCHC RDW 17.8 H Lymph % (Auto) [place] % (Auto) Eos % (Auto) Lymph # [place] # Lymph # (Auto) [place] # (Auto) Eos # (Auto) Seg Neutrophils % Seg Neuts % (Manual) 83.0 H Lymphocytes % (Manual) 8.0 L Seg Neutrophils # Seg Neutrophils # Man Lymphocytes # (Manual) 0.6 L Monocytes % (Manual) Eosinophils % (Manual) Monocytes # (Manual) Eosinophils # (Manual) D-Dimer Heparin Anti-Xa Level ABG pH POC ABG pCO2 POC ABG pO2 ABG pO2 ABG HCO3 ABG O2 Saturation ABG Base Excess ABG Hemoglobin ABG Oxyhemoglobin VBG pH ABG Sodium ABG Potassium ABG Glucose Oxyhemoglobin Sodium Potassium Chloride Carbon Dioxide BUN 80 H Creatinine 2.1 H Glucose 260 H POC Glucose Lactic Acid 4.30 H* Calcium 8.3 L Ferritin AST Alkaline Phosphatase Magnesium Lactate Dehydrogenase Total Creatine Kinase CK-MB (CK-2) C-Reactive Protein Total Protein Albumin Troponin T HDL Cholesterol Arterial Blood Glucose Urine WBC (Auto) Urine Creatinine Urine Total Protein Phenytoin Coronavirus (PCR) Crossmatch 06/26/20 06/27/20 06/27/20 18:50 01:00 04:29 WBC RBC Hgb Hct MCHC RDW Lymph % (Auto) [place] % (Auto) Eos % (Auto) Lymph # [place] # Lymph # (Auto) [place] # (Auto) Eos # (Auto) Seg Neutrophils % Seg Neuts % (Manual) Lymphocytes % (Manual) Seg Neutrophils # Seg Neutrophils # Man Lymphocytes # (Manual) Monocytes % (Manual) Eosinophils % (Manual) Monocytes # (Manual) Eosinophils # (Manual) D-Dimer Heparin Anti-Xa Level ABG pH 7.296 L POC ABG pCO2 POC ABG pO2 ABG pO2 116.5 H 200.5 H ABG HCO3 28.4 H ABG O2 Saturation 99.3 H ABG Base Excess 3.7 H ABG Hemoglobin 5.6 L ABG Oxyhemoglobin VBG pH ABG Sodium ABG Potassium ABG Glucose Oxyhemoglobin Sodium Potassium Chloride Carbon Dioxide BUN Creatinine Glucose POC Glucose 123 H Lactic Acid Calcium Ferritin AST Alkaline Phosphatase Magnesium Lactate Dehydrogenase Total Creatine Kinase CK-MB (CK-2) C-Reactive Protein Total Protein Albumin Troponin T HDL Cholesterol Arterial Blood Glucose Urine WBC (Auto) Urine Creatinine Urine Total Protein Phenytoin Coronavirus (PCR) Crossmatch 06/27/20 06/27/20 06/27/20 05:00 05:00 05:00 WBC RBC 2.75 L Hgb 7.9 L Hct 24.3 L MCHC RDW 17.1 H Lymph % (Auto) 8.5 L [place] % (Auto) 12.6 H Eos % (Auto) Lymph # 0.7 L [place] # 1.0 H Lymph # (Auto) [place] # (Auto) Eos # (Auto) Seg Neutrophils % 77.5 H Seg Neuts % (Manual) Lymphocytes % (Manual) Seg Neutrophils # Seg Neutrophils # Man Lymphocytes # (Manual) Monocytes % (Manual) Eosinophils % (Manual) Monocytes # (Manual) Eosinophils # (Manual) D-Dimer Heparin Anti-Xa Level ABG pH POC ABG pCO2 POC ABG pO2 ABG pO2 ABG HCO3 ABG O2 Saturation ABG Base Excess ABG Hemoglobin ABG Oxyhemoglobin VBG pH ABG Sodium ABG Potassium ABG Glucose Oxyhemoglobin Sodium Potassium Chloride Carbon Dioxide BUN 80 H Creatinine 2.0 H Glucose 129 H POC Glucose Lactic Acid 0.60 L Calcium 7.9 L Ferritin AST Alkaline Phosphatase Magnesium Lactate Dehydrogenase Total Creatine Kinase CK-MB (CK-2) C-Reactive Protein Total Protein Albumin Troponin T HDL Cholesterol Arterial Blood Glucose Urine WBC (Auto) Urine Creatinine Urine Total Protein Phenytoin Coronavirus (PCR) Crossmatch 06/27/20 06/27/20 06/27/20 05:23 13:46 17:25 WBC RBC Hgb Hct MCHC RDW Lymph % (Auto) [place] % (Auto) Eos % (Auto) Lymph # [place] # Lymph # (Auto) [place] # (Auto) Eos # (Auto) Seg Neutrophils % Seg Neuts % (Manual) Lymphocytes % (Manual) Seg Neutrophils # Seg Neutrophils # Man Lymphocytes # (Manual) Monocytes % (Manual) Eosinophils % (Manual) Monocytes # (Manual) Eosinophils # (Manual) D-Dimer Heparin Anti-Xa Level ABG pH POC ABG pCO2 POC ABG pO2 ABG pO2 ABG HCO3 ABG O2 Saturation ABG Base Excess ABG Hemoglobin ABG Oxyhemoglobin VBG pH ABG Sodium ABG Potassium ABG Glucose Oxyhemoglobin Sodium Potassium Chloride Carbon Dioxide BUN Creatinine Glucose POC Glucose 109 H 158 H 162 H Lactic Acid Calcium Ferritin AST Alkaline Phosphatase Magnesium Lactate Dehydrogenase Total Creatine Kinase CK-MB (CK-2) C-Reactive Protein Total Protein Albumin Troponin T HDL Cholesterol Arterial Blood Glucose Urine WBC (Auto) Urine Creatinine Urine Total Protein Phenytoin Coronavirus (PCR) Crossmatch 06/27/20 06/27/20 06/28/20 18:43 23:46 04:05 WBC RBC Hgb 7.7 L Hct 22.1 L MCHC RDW Lymph % (Auto) [place] % (Auto) Eos % (Auto) Lymph # [place] # Lymph # (Auto) [place] # (Auto) Eos # (Auto) Seg Neutrophils % Seg Neuts % (Manual) Lymphocytes % (Manual) Seg Neutrophils # Seg Neutrophils # Man Lymphocytes # (Manual) Monocytes % (Manual) Eosinophils % (Manual) Monocytes # (Manual) Eosinophils # (Manual) D-Dimer Heparin Anti-Xa Level ABG pH POC ABG pCO2 POC ABG pO2 ABG pO2 102.7 H ABG HCO3 28.7 H ABG O2 Saturation ABG Base Excess 3.7 H ABG Hemoglobin ABG Oxyhemoglobin VBG pH ABG Sodium ABG Potassium ABG Glucose Oxyhemoglobin Sodium Potassium Chloride Carbon Dioxide BUN Creatinine Glucose POC Glucose 142 H Lactic Acid Calcium Ferritin AST Alkaline Phosphatase Magnesium Lactate Dehydrogenase Total Creatine Kinase CK-MB (CK-2) C-Reactive Protein Total Protein Albumin Troponin T HDL Cholesterol Arterial Blood Glucose Urine WBC (Auto) Urine Creatinine Urine Total Protein Phenytoin Coronavirus (PCR) Crossmatch 06/28/20 06/28/20 06/28/20 09:47 09:47 12:02 WBC RBC 2.53 L Hgb 7.4 L Hct 22.2 L MCHC RDW 16.8 H Lymph % (Auto) [place] % (Auto) 13.5 H Eos % (Auto) Lymph # 1.1 L [place] # 1.0 H Lymph # (Auto) [place] # (Auto) Eos # (Auto) Seg Neutrophils % Seg Neuts % (Manual) Lymphocytes % (Manual) Seg Neutrophils # Seg Neutrophils # Man Lymphocytes # (Manual) Monocytes % (Manual) Eosinophils % (Manual) Monocytes # (Manual) Eosinophils # (Manual) D-Dimer Heparin Anti-Xa Level ABG pH POC ABG pCO2 POC ABG pO2 ABG pO2 ABG HCO3 ABG O2 Saturation ABG Base Excess ABG Hemoglobin ABG Oxyhemoglobin VBG pH ABG Sodium ABG Potassium ABG Glucose Oxyhemoglobin Sodium Potassium Chloride Carbon Dioxide BUN 80 H Creatinine 1.5 H Glucose 139 H POC Glucose 169 H Lactic Acid Calcium 7.9 L Ferritin AST Alkaline Phosphatase Magnesium Lactate Dehydrogenase Total Creatine Kinase CK-MB (CK-2) C-Reactive Protein Total Protein 5.0 L Albumin 2.1 L Troponin T HDL Cholesterol Arterial Blood Glucose Urine WBC (Auto) Urine Creatinine Urine Total Protein Phenytoin Coronavirus (PCR) Crossmatch 06/28/20 06/28/20 06/28/20 12:30 12:30 17:24 WBC RBC 2.38 L Hgb 7.3 L Hct 20.9 L MCHC 35 H RDW 16.7 H Lymph % (Auto) [place] % (Auto) Eos % (Auto) Lymph # [place] # Lymph # (Auto) [place] # (Auto) Eos # (Auto) Seg Neutrophils % Seg Neuts % (Manual) Lymphocytes % (Manual) Seg Neutrophils # Seg Neutrophils # Man Lymphocytes # (Manual) Monocytes % (Manual) Eosinophils % (Manual) Monocytes # (Manual) Eosinophils # (Manual) D-Dimer Heparin Anti-Xa Level ABG pH POC ABG pCO2 POC ABG pO2 ABG pO2 ABG HCO3 ABG O2 Saturation ABG Base Excess ABG Hemoglobin ABG Oxyhemoglobin VBG pH ABG Sodium ABG Potassium ABG Glucose Oxyhemoglobin Sodium Potassium Chloride Carbon Dioxide BUN 74 H Creatinine 1.5 H Glucose 143 H POC Glucose 173 H Lactic Acid Calcium 7.5 L Ferritin AST Alkaline Phosphatase Magnesium Lactate Dehydrogenase Total Creatine Kinase CK-MB (CK-2) C-Reactive Protein Total Protein Albumin Troponin T HDL Cholesterol Arterial Blood Glucose Urine WBC (Auto) Urine Creatinine Urine Total Protein Phenytoin Coronavirus (PCR) Crossmatch 06/29/20 06/29/20 06/29/20 00:02 03:54 04:38 WBC RBC 2.55 L Hgb 7.3 L Hct 22.4 L MCHC RDW 16.4 H Lymph % (Auto) 13.3 L [place] % (Auto) 12.5 H Eos % (Auto) Lymph # 1.1 L [place] # 1.0 H Lymph # (Auto) [place] # (Auto) Eos # (Auto) Seg Neutrophils % Seg Neuts % (Manual) Lymphocytes % (Manual) Seg Neutrophils # Seg Neutrophils # Man Lymphocytes # (Manual) Monocytes % (Manual) Eosinophils % (Manual) Monocytes # (Manual) Eosinophils # (Manual) D-Dimer Heparin Anti-Xa Level ABG pH POC ABG pCO2 POC ABG pO2 ABG pO2 ABG HCO3 26.9 H ABG O2 Saturation ABG Base Excess ABG Hemoglobin 6.9 L ABG Oxyhemoglobin VBG pH ABG Sodium ABG Potassium ABG Glucose Oxyhemoglobin Sodium Potassium Chloride Carbon Dioxide BUN Creatinine Glucose POC Glucose 142 H Lactic Acid Calcium Ferritin AST Alkaline Phosphatase Magnesium Lactate Dehydrogenase Total Creatine Kinase CK-MB (CK-2) C-Reactive Protein Total Protein Albumin Troponin T HDL Cholesterol Arterial Blood Glucose Urine WBC (Auto) Urine Creatinine Urine Total Protein Phenytoin Coronavirus (PCR) Crossmatch 06/29/20 06/29/20 06/29/20 04:38 05:38 12:25 WBC RBC Hgb Hct MCHC RDW Lymph % (Auto) [place] % (Auto) Eos % (Auto) Lymph # [place] # Lymph # (Auto) [place] # (Auto) Eos # (Auto) Seg Neutrophils % Seg Neuts % (Manual) Lymphocytes % (Manual) Seg Neutrophils # Seg Neutrophils # Man Lymphocytes # (Manual) Monocytes % (Manual) Eosinophils % (Manual) Monocytes # (Manual) Eosinophils # (Manual) D-Dimer Heparin Anti-Xa Level ABG pH POC ABG pCO2 POC ABG pO2 ABG pO2 ABG HCO3 ABG O2 Saturation ABG Base Excess ABG Hemoglobin ABG Oxyhemoglobin VBG pH ABG Sodium ABG Potassium ABG Glucose Oxyhemoglobin Sodium Potassium Chloride 107.8 H Carbon Dioxide BUN 72 H Creatinine 1.4 H Glucose 127 H POC Glucose 122 H 138 H Lactic Acid Calcium 7.4 L Ferritin AST Alkaline Phosphatase Magnesium Lactate Dehydrogenase Total Creatine Kinase CK-MB (CK-2) C-Reactive Protein Total Protein Albumin Troponin T HDL Cholesterol Arterial Blood Glucose Urine WBC (Auto) Urine Creatinine Urine Total Protein Phenytoin Coronavirus (PCR) Crossmatch 06/29/20 06/29/20 06/29/20 14:45 14:45 14:45 WBC RBC Hgb Hct MCHC RDW Lymph % (Auto) [place] % (Auto) Eos % (Auto) Lymph # [place] # Lymph # (Auto) [place] # (Auto) Eos # (Auto) Seg Neutrophils % Seg Neuts % (Manual) Lymphocytes % (Manual) Seg Neutrophils # Seg Neutrophils # Man Lymphocytes # (Manual) Monocytes % (Manual) Eosinophils % (Manual) Monocytes # (Manual) Eosinophils # (Manual) D-Dimer 2310.15 H Heparin Anti-Xa Level ABG pH POC ABG pCO2 POC ABG pO2 ABG pO2 ABG HCO3 ABG O2 Saturation ABG Base Excess ABG Hemoglobin ABG Oxyhemoglobin VBG pH ABG Sodium ABG Potassium ABG Glucose Oxyhemoglobin Sodium Potassium Chloride Carbon Dioxide BUN Creatinine Glucose POC Glucose Lactic Acid Calcium Ferritin 223.6 H AST Alkaline Phosphatase Magnesium Lactate Dehydrogenase 367 H Total Creatine Kinase CK-MB (CK-2) C-Reactive Protein 3.60 H Total Protein Albumin Troponin T HDL Cholesterol Arterial Blood Glucose Urine WBC (Auto) Urine Creatinine Urine Total Protein Phenytoin Coronavirus (PCR) Crossmatch 06/29/20 06/29/20 06/29/20 18:27 23:35 Unknown WBC RBC Hgb Hct MCHC RDW Lymph % (Auto) [place] % (Auto) Eos % (Auto) Lymph # [place] # Lymph # (Auto) [place] # (Auto) Eos # (Auto) Seg Neutrophils % Seg Neuts % (Manual) Lymphocytes % (Manual) Seg Neutrophils # Seg Neutrophils # Man Lymphocytes # (Manual) Monocytes % (Manual) Eosinophils % (Manual) Monocytes # (Manual) Eosinophils # (Manual) D-Dimer Heparin Anti-Xa Level ABG pH POC ABG pCO2 POC ABG pO2 ABG pO2 ABG HCO3 ABG O2 Saturation ABG Base Excess ABG Hemoglobin ABG Oxyhemoglobin VBG pH ABG Sodium ABG Potassium ABG Glucose Oxyhemoglobin Sodium Potassium Chloride Carbon Dioxide BUN Creatinine Glucose POC Glucose 112 H 140 H Lactic Acid Calcium Ferritin AST Alkaline Phosphatase Magnesium Lactate Dehydrogenase Total Creatine Kinase CK-MB (CK-2) C-Reactive Protein Total Protein Albumin Troponin T HDL Cholesterol Arterial Blood Glucose Urine WBC (Auto) Urine Creatinine Urine Total Protein Phenytoin Coronavirus (PCR) Positive A Crossmatch 06/30/20 06/30/20 06/30/20 04:10 04:10 06:09 WBC RBC 2.44 L Hgb 7.1 L Hct 21.5 L MCHC RDW 16.6 H Lymph % (Auto) 11.0 L [place] % (Auto) 10.8 H Eos % (Auto) Lymph # 0.9 L [place] # 0.9 H Lymph # (Auto) [place] # (Auto) Eos # (Auto) Seg Neutrophils % 73.7 H Seg Neuts % (Manual) Lymphocytes % (Manual) Seg Neutrophils # Seg Neutrophils # Man Lymphocytes # (Manual) Monocytes % (Manual) Eosinophils % (Manual) Monocytes # (Manual) Eosinophils # (Manual) D-Dimer Heparin Anti-Xa Level ABG pH POC ABG pCO2 POC ABG pO2 ABG pO2 ABG HCO3 ABG O2 Saturation ABG Base Excess ABG Hemoglobin ABG Oxyhemoglobin VBG pH ABG Sodium ABG Potassium ABG Glucose Oxyhemoglobin Sodium Potassium Chloride 109.1 H Carbon Dioxide BUN 74 H Creatinine 1.3 H Glucose 191 H POC Glucose 187 H Lactic Acid Calcium 7.8 L Ferritin AST Alkaline Phosphatase Magnesium Lactate Dehydrogenase Total Creatine Kinase CK-MB (CK-2) C-Reactive Protein Total Protein Albumin Troponin T HDL Cholesterol Arterial Blood Glucose Urine WBC (Auto) Urine Creatinine Urine Total Protein Phenytoin Coronavirus (PCR) Crossmatch 06/30/20 06/30/20 06/30/20 12:04 17:43 23:41 WBC RBC Hgb Hct MCHC RDW Lymph % (Auto) [place] % (Auto) Eos % (Auto) Lymph # [place] # Lymph # (Auto) [place] # (Auto) Eos # (Auto) Seg Neutrophils % Seg Neuts % (Manual) Lymphocytes % (Manual) Seg Neutrophils # Seg Neutrophils # Man Lymphocytes # (Manual) Monocytes % (Manual) Eosinophils % (Manual) Monocytes # (Manual) Eosinophils # (Manual) D-Dimer Heparin Anti-Xa Level ABG pH POC ABG pCO2 POC ABG pO2 ABG pO2 ABG HCO3 ABG O2 Saturation ABG Base Excess ABG Hemoglobin ABG Oxyhemoglobin VBG pH ABG Sodium ABG Potassium ABG Glucose Oxyhemoglobin Sodium Potassium Chloride Carbon Dioxide BUN Creatinine Glucose POC Glucose 112 H 177 H 143 H Lactic Acid Calcium Ferritin AST Alkaline Phosphatase Magnesium Lactate Dehydrogenase Total Creatine Kinase CK-MB (CK-2) C-Reactive Protein Total Protein Albumin Troponin T HDL Cholesterol Arterial Blood Glucose Urine WBC (Auto) Urine Creatinine Urine Total Protein Phenytoin Coronavirus (PCR) Crossmatch 07/01/20 07/01/20 07/01/20 05:02 05:52 06:01 WBC 12.6 H RBC 2.95 L Hgb 8.2 L Hct 26.0 L MCHC RDW 16.9 H Lymph % (Auto) [place] % (Auto) Eos % (Auto) Lymph # [place] # Lymph # (Auto) [place] # (Auto) Eos # (Auto) Seg Neutrophils % Seg Neuts % (Manual) Lymphocytes % (Manual) Seg Neutrophils # Seg Neutrophils # Man 8.6 H Lymphocytes # (Manual) Monocytes % (Manual) Eosinophils % (Manual) 5.0 H Monocytes # (Manual) Eosinophils # (Manual) 0.6 H D-Dimer Heparin Anti-Xa Level ABG pH POC ABG pCO2 POC ABG pO2 ABG pO2 ABG HCO3 ABG O2 Saturation ABG Base Excess ABG Hemoglobin 8.2 L ABG Oxyhemoglobin VBG pH ABG Sodium ABG Potassium ABG Glucose Oxyhemoglobin Sodium Potassium Chloride Carbon Dioxide BUN Creatinine Glucose POC Glucose 129 H Lactic Acid Calcium Ferritin AST Alkaline Phosphatase Magnesium Lactate Dehydrogenase Total Creatine Kinase CK-MB (CK-2) C-Reactive Protein Total Protein Albumin Troponin T HDL Cholesterol Arterial Blood Glucose Urine WBC (Auto) Urine Creatinine Urine Total Protein Phenytoin Coronavirus (PCR) Crossmatch 07/01/20 07/01/20 07/01/20 06:01 06:01 06:08 WBC RBC Hgb Hct MCHC RDW Lymph % (Auto) [place] % (Auto) Eos % (Auto) Lymph # [place] # Lymph # (Auto) [place] # (Auto) Eos # (Auto) Seg Neutrophils % Seg Neuts % (Manual) Lymphocytes % (Manual) Seg Neutrophils # Seg Neutrophils # Man Lymphocytes # (Manual) Monocytes % (Manual) Eosinophils % (Manual) Monocytes # (Manual) Eosinophils # (Manual) D-Dimer Heparin Anti-Xa Level ABG pH POC ABG pCO2 POC ABG pO2 ABG pO2 ABG HCO3 ABG O2 Saturation ABG Base Excess ABG Hemoglobin ABG Oxyhemoglobin VBG pH ABG Sodium ABG Potassium ABG Glucose Oxyhemoglobin Sodium 147 H Potassium Chloride 108.0 H Carbon Dioxide BUN 71 H Creatinine 1.3 H Glucose 193 H POC Glucose 192 H Lactic Acid Calcium 8.1 L Ferritin AST Alkaline Phosphatase Magnesium Lactate Dehydrogenase Total Creatine Kinase 300 H CK-MB (CK-2) C-Reactive Protein Total Protein Albumin Troponin T 0.067 H HDL Cholesterol 61 H Arterial Blood Glucose Urine WBC (Auto) Urine Creatinine Urine Total Protein Phenytoin Coronavirus (PCR) Crossmatch 07/01/20 07/01/20 07/02/20 12:23 17:40 00:18 WBC RBC Hgb Hct MCHC RDW Lymph % (Auto) [place] % (Auto) Eos % (Auto) Lymph # [place] # Lymph # (Auto) [place] # (Auto) Eos # (Auto) Seg Neutrophils % Seg Neuts % (Manual) Lymphocytes % (Manual) Seg Neutrophils # Seg Neutrophils # Man Lymphocytes # (Manual) Monocytes % (Manual) Eosinophils % (Manual) Monocytes # (Manual) Eosinophils # (Manual) D-Dimer Heparin Anti-Xa Level ABG pH POC ABG pCO2 POC ABG pO2 ABG pO2 ABG HCO3 ABG O2 Saturation ABG Base Excess ABG Hemoglobin ABG Oxyhemoglobin VBG pH ABG Sodium ABG Potassium ABG Glucose Oxyhemoglobin Sodium Potassium Chloride Carbon Dioxide BUN Creatinine Glucose POC Glucose 111 H 135 H 145 H Lactic Acid Calcium Ferritin AST Alkaline Phosphatase Magnesium Lactate Dehydrogenase Total Creatine Kinase CK-MB (CK-2) C-Reactive Protein Total Protein Albumin Troponin T HDL Cholesterol Arterial Blood Glucose Urine WBC (Auto) Urine Creatinine Urine Total Protein Phenytoin Coronavirus (PCR) Crossmatch 07/02/20 07/02/20 07/02/20 04:11 04:23 05:54 WBC RBC Hgb Hct MCHC RDW Lymph % (Auto) [place] % (Auto) Eos % (Auto) Lymph # [place] # Lymph # (Auto) [place] # (Auto) Eos # (Auto) Seg Neutrophils % Seg Neuts % (Manual) Lymphocytes % (Manual) Seg Neutrophils # Seg Neutrophils # Man Lymphocytes # (Manual) Monocytes % (Manual) Eosinophils % (Manual) Monocytes # (Manual) Eosinophils # (Manual) D-Dimer Heparin Anti-Xa Level ABG pH POC ABG pCO2 POC ABG pO2 ABG pO2 ABG HCO3 ABG O2 Saturation ABG Base Excess ABG Hemoglobin 5.4 L ABG Oxyhemoglobin VBG pH ABG Sodium ABG Potassium ABG Glucose Oxyhemoglobin Sodium Potassium Chloride 108.6 H Carbon Dioxide BUN 72 H Creatinine Glucose 112 H POC Glucose 137 H Lactic Acid Calcium 7.8 L Ferritin AST Alkaline Phosphatase Magnesium Lactate Dehydrogenase Total Creatine Kinase CK-MB (CK-2) C-Reactive Protein Total Protein Albumin Troponin T HDL Cholesterol Arterial Blood Glucose Urine WBC (Auto) Urine Creatinine Urine Total Protein Phenytoin Coronavirus (PCR) Crossmatch 07/02/20 07/02/20 07/02/20 11:38 18:04 23:59 WBC RBC Hgb Hct MCHC RDW Lymph % (Auto) [place] % (Auto) Eos % (Auto) Lymph # [place] # Lymph # (Auto) [place] # (Auto) Eos # (Auto) Seg Neutrophils % Seg Neuts % (Manual) Lymphocytes % (Manual) Seg Neutrophils # Seg Neutrophils # Man Lymphocytes # (Manual) Monocytes % (Manual) Eosinophils % (Manual) Monocytes # (Manual) Eosinophils # (Manual) D-Dimer Heparin Anti-Xa Level ABG pH POC ABG pCO2 POC ABG pO2 ABG pO2 ABG HCO3 ABG O2 Saturation ABG Base Excess ABG Hemoglobin ABG Oxyhemoglobin VBG pH ABG Sodium ABG Potassium ABG Glucose Oxyhemoglobin Sodium Potassium Chloride Carbon Dioxide BUN Creatinine Glucose POC Glucose 128 H 135 H 156 H Lactic Acid Calcium Ferritin AST Alkaline Phosphatase Magnesium Lactate Dehydrogenase Total Creatine Kinase CK-MB (CK-2) C-Reactive Protein Total Protein Albumin Troponin T HDL Cholesterol Arterial Blood Glucose Urine WBC (Auto) Urine Creatinine Urine Total Protein Phenytoin Coronavirus (PCR) Crossmatch 07/03/20 07/03/20 07/03/20 03:49 06:00 11:31 WBC RBC Hgb Hct MCHC RDW Lymph % (Auto) [place] % (Auto) Eos % (Auto) Lymph # [place] # Lymph # (Auto) [place] # (Auto) Eos # (Auto) Seg Neutrophils % Seg Neuts % (Manual) Lymphocytes % (Manual) Seg Neutrophils # Seg Neutrophils # Man Lymphocytes # (Manual) Monocytes % (Manual) Eosinophils % (Manual) Monocytes # (Manual) Eosinophils # (Manual) D-Dimer Heparin Anti-Xa Level ABG pH POC ABG pCO2 POC ABG pO2 ABG pO2 121.0 H ABG HCO3 ABG O2 Saturation ABG Base Excess ABG Hemoglobin 8.5 L ABG Oxyhemoglobin VBG pH ABG Sodium ABG Potassium ABG Glucose Oxyhemoglobin Sodium Potassium Chloride Carbon Dioxide BUN Creatinine Glucose POC Glucose 135 H 141 H Lactic Acid Calcium Ferritin AST Alkaline Phosphatase Magnesium Lactate Dehydrogenase Total Creatine Kinase CK-MB (CK-2) C-Reactive Protein Total Protein Albumin Troponin T HDL Cholesterol Arterial Blood Glucose Urine WBC (Auto) Urine Creatinine Urine Total Protein Phenytoin Coronavirus (PCR) Crossmatch 07/03/20 07/03/20 07/03/20 16:00 16:07 17:40 WBC RBC Hgb Hct MCHC RDW Lymph % (Auto) [place] % (Auto) Eos % (Auto) Lymph # [place] # Lymph # (Auto) [place] # (Auto) Eos # (Auto) Seg Neutrophils % Seg Neuts % (Manual) Lymphocytes % (Manual) Seg Neutrophils # Seg Neutrophils # Man Lymphocytes # (Manual) Monocytes % (Manual) Eosinophils % (Manual) Monocytes # (Manual) Eosinophils # (Manual) D-Dimer Heparin Anti-Xa Level ABG pH 7.271 L POC ABG pCO2 POC ABG pO2 ABG pO2 126.9 H ABG HCO3 ABG O2 Saturation ABG Base Excess ABG Hemoglobin 8.2 L 8.1 L ABG Oxyhemoglobin VBG pH ABG Sodium 130.3 L ABG Potassium 4.9 H ABG Glucose 163 H Oxyhemoglobin Sodium Potassium Chloride Carbon Dioxide BUN Creatinine Glucose POC Glucose 120 H Lactic Acid Calcium Ferritin AST Alkaline Phosphatase Magnesium Lactate Dehydrogenase Total Creatine Kinase CK-MB (CK-2) C-Reactive Protein Total Protein Albumin Troponin T HDL Cholesterol Arterial Blood Glucose 163 H Urine WBC (Auto) Urine Creatinine Urine Total Protein Phenytoin Coronavirus (PCR) Crossmatch 07/04/20 07/04/20 07/04/20 05:49 11:54 18:00 WBC RBC Hgb Hct MCHC RDW Lymph % (Auto) [place] % (Auto) Eos % (Auto) Lymph # [place] # Lymph # (Auto) [place] # (Auto) Eos # (Auto) Seg Neutrophils % Seg Neuts % (Manual) Lymphocytes % (Manual) Seg Neutrophils # Seg Neutrophils # Man Lymphocytes # (Manual) Monocytes % (Manual) Eosinophils % (Manual) Monocytes # (Manual) Eosinophils # (Manual) D-Dimer Heparin Anti-Xa Level ABG pH POC ABG pCO2 POC ABG pO2 ABG pO2 ABG HCO3 ABG O2 Saturation ABG Base Excess ABG Hemoglobin ABG Oxyhemoglobin VBG pH ABG Sodium ABG Potassium ABG Glucose Oxyhemoglobin Sodium Potassium Chloride Carbon Dioxide BUN Creatinine Glucose POC Glucose 128 H 168 H 133 H Lactic Acid Calcium Ferritin AST Alkaline Phosphatase Magnesium Lactate Dehydrogenase Total Creatine Kinase CK-MB (CK-2) C-Reactive Protein Total Protein Albumin Troponin T HDL Cholesterol Arterial Blood Glucose Urine WBC (Auto) Urine Creatinine Urine Total Protein Phenytoin Coronavirus (PCR) Crossmatch 07/05/20 07/05/20 07/05/20 00:07 01:12 02:30 WBC RBC 2.35 L Hgb 6.9 L Hct 21.1 L MCHC RDW 16.8 H Lymph % (Auto) [place] % (Auto) Eos % (Auto) Lymph # [place] # Lymph # (Auto) [place] # (Auto) Eos # (Auto) Seg Neutrophils % Seg Neuts % (Manual) 74.0 H Lymphocytes % (Manual) 12.0 L Seg Neutrophils # Seg Neutrophils # Man 8.0 H Lymphocytes # (Manual) Monocytes % (Manual) 9.0 H Eosinophils % (Manual) Monocytes # (Manual) 1.0 H Eosinophils # (Manual) D-Dimer Heparin Anti-Xa Level ABG pH POC ABG pCO2 POC ABG pO2 ABG pO2 ABG HCO3 ABG O2 Saturation ABG Base Excess ABG Hemoglobin ABG Oxyhemoglobin VBG pH ABG Sodium ABG Potassium ABG Glucose Oxyhemoglobin Sodium Potassium Chloride Carbon Dioxide BUN Creatinine Glucose POC Glucose 121 H Lactic Acid Calcium Ferritin AST Alkaline Phosphatase Magnesium Lactate Dehydrogenase Total Creatine Kinase CK-MB (CK-2) C-Reactive Protein Total Protein Albumin Troponin T HDL Cholesterol Arterial Blood Glucose Urine WBC (Auto) Urine Creatinine Urine Total Protein Phenytoin Coronavirus (PCR) Crossmatch See Detail 07/05/20 07/05/20 07/05/20 12:09 13:05 18:04 WBC RBC Hgb Hct MCHC RDW Lymph % (Auto) [place] % (Auto) Eos % (Auto) Lymph # [place] # Lymph # (Auto) [place] # (Auto) Eos # (Auto) Seg Neutrophils % Seg Neuts % (Manual) Lymphocytes % (Manual) Seg Neutrophils # Seg Neutrophils # Man Lymphocytes # (Manual) Monocytes % (Manual) Eosinophils % (Manual) Monocytes # (Manual) Eosinophils # (Manual) D-Dimer Heparin Anti-Xa Level ABG pH 7.32 L POC ABG pCO2 POC ABG pO2 ABG pO2 78.3 L ABG HCO3 ABG O2 Saturation ABG Base Excess -2.6 L ABG Hemoglobin 7.3 L ABG Oxyhemoglobin VBG pH ABG Sodium ABG Potassium ABG Glucose Oxyhemoglobin Sodium Potassium Chloride Carbon Dioxide BUN Creatinine Glucose POC Glucose 132 H 160 H Lactic Acid Calcium Ferritin AST Alkaline Phosphatase Magnesium Lactate Dehydrogenase Total Creatine Kinase CK-MB (CK-2) C-Reactive Protein Total Protein Albumin Troponin T HDL Cholesterol Arterial Blood Glucose Urine WBC (Auto) Urine Creatinine Urine Total Protein Phenytoin Coronavirus (PCR) Crossmatch 07/05/20 07/05/20 07/05/20 23:13 23:13 23:43 WBC RBC 2.57 L Hgb 7.7 L Hct 23.0 L MCHC RDW 16.9 H Lymph % (Auto) [place] % (Auto) Eos % (Auto) Lymph # [place] # Lymph # (Auto) [place] # (Auto) Eos # (Auto) Seg Neutrophils % Seg Neuts % (Manual) Lymphocytes % (Manual) Seg Neutrophils # Seg Neutrophils # Man Lymphocytes # (Manual) Monocytes % (Manual) Eosinophils % (Manual) Monocytes # (Manual) Eosinophils # (Manual) D-Dimer Heparin Anti-Xa Level ABG pH POC ABG pCO2 POC ABG pO2 ABG pO2 ABG HCO3 ABG O2 Saturation ABG Base Excess ABG Hemoglobin ABG Oxyhemoglobin VBG pH ABG Sodium ABG Potassium ABG Glucose Oxyhemoglobin Sodium Potassium Chloride Carbon Dioxide 20 L BUN 80 H Creatinine 2.4 H D Glucose 124 H POC Glucose 121 H Lactic Acid Calcium 7.6 L Ferritin AST Alkaline Phosphatase Magnesium Lactate Dehydrogenase Total Creatine Kinase CK-MB (CK-2) C-Reactive Protein Total Protein Albumin Troponin T HDL Cholesterol Arterial Blood Glucose Urine WBC (Auto) Urine Creatinine Urine Total Protein Phenytoin Coronavirus (PCR) Crossmatch 07/06/20 07/06/20 07/06/20 13:20 14:48 17:28 WBC RBC Hgb Hct MCHC RDW Lymph % (Auto) [place] % (Auto) Eos % (Auto) Lymph # [place] # Lymph # (Auto) [place] # (Auto) Eos # (Auto) Seg Neutrophils % Seg Neuts % (Manual) Lymphocytes % (Manual) Seg Neutrophils # Seg Neutrophils # Man Lymphocytes # (Manual) Monocytes % (Manual) Eosinophils % (Manual) Monocytes # (Manual) Eosinophils # (Manual) D-Dimer Heparin Anti-Xa Level ABG pH POC ABG pCO2 POC ABG pO2 ABG pO2 ABG HCO3 ABG O2 Saturation ABG Base Excess ABG Hemoglobin ABG Oxyhemoglobin VBG pH ABG Sodium ABG Potassium ABG Glucose Oxyhemoglobin Sodium 136 L Potassium 5.5 H Chloride Carbon Dioxide 19 L BUN 82 H Creatinine 2.5 H Glucose 113 H POC Glucose 133 H Lactic Acid Calcium 7.7 L Ferritin AST Alkaline Phosphatase Magnesium Lactate Dehydrogenase Total Creatine Kinase CK-MB (CK-2) C-Reactive Protein Total Protein Albumin Troponin T HDL Cholesterol Arterial Blood Glucose Urine WBC (Auto) Urine Creatinine 33.3 H Urine Total Protein Phenytoin Coronavirus (PCR) Crossmatch 07/07/20 07/07/20 07/07/20 00:12 04:15 04:15 WBC RBC 2.28 L Hgb 6.8 L Hct 20.7 L MCHC RDW 16.8 H Lymph % (Auto) [place] % (Auto) Eos % (Auto) Lymph # [place] # Lymph # (Auto) [place] # (Auto) Eos # (Auto) Seg Neutrophils % Seg Neuts % (Manual) Lymphocytes % (Manual) 13.0 L Seg Neutrophils # Seg Neutrophils # Man Lymphocytes # (Manual) 1.0 L Monocytes % (Manual) 11.0 H Eosinophils % (Manual) Monocytes # (Manual) 0.9 H Eosinophils # (Manual) D-Dimer Heparin Anti-Xa Level ABG pH POC ABG pCO2 POC ABG pO2 ABG pO2 ABG HCO3 ABG O2 Saturation ABG Base Excess ABG Hemoglobin ABG Oxyhemoglobin VBG pH ABG Sodium ABG Potassium ABG Glucose Oxyhemoglobin Sodium Potassium Chloride Carbon Dioxide BUN Creatinine Glucose POC Glucose 154 H Lactic Acid Calcium Ferritin AST Alkaline Phosphatase Magnesium 2.50 H Lactate Dehydrogenase Total Creatine Kinase CK-MB (CK-2) C-Reactive Protein Total Protein Albumin Troponin T HDL Cholesterol Arterial Blood Glucose Urine WBC (Auto) Urine Creatinine Urine Total Protein Phenytoin Coronavirus (PCR) Crossmatch 07/07/20 07/07/20 07/07/20 05:31 12:31 13:22 WBC RBC Hgb Hct MCHC RDW Lymph % (Auto) [place] % (Auto) Eos % (Auto) Lymph # [place] # Lymph # (Auto) [place] # (Auto) Eos # (Auto) Seg Neutrophils % Seg Neuts % (Manual) Lymphocytes % (Manual) Seg Neutrophils # Seg Neutrophils # Man Lymphocytes # (Manual) Monocytes % (Manual) Eosinophils % (Manual) Monocytes # (Manual) Eosinophils # (Manual) D-Dimer Heparin Anti-Xa Level ABG pH POC ABG pCO2 POC ABG pO2 ABG pO2 ABG HCO3 ABG O2 Saturation ABG Base Excess ABG Hemoglobin ABG Oxyhemoglobin VBG pH ABG Sodium ABG Potassium ABG Glucose Oxyhemoglobin Sodium Potassium 5.6 H Chloride Carbon Dioxide BUN 86 H Creatinine 2.9 H Glucose 127 H POC Glucose 135 H 131 H Lactic Acid Calcium 8.1 L Ferritin AST Alkaline Phosphatase Magnesium Lactate Dehydrogenase Total Creatine Kinase CK-MB (CK-2) C-Reactive Protein Total Protein Albumin Troponin T HDL Cholesterol Arterial Blood Glucose Urine WBC (Auto) Urine Creatinine Urine Total Protein Phenytoin Coronavirus (PCR) Crossmatch 07/07/20 07/07/20 07/08/20 17:55 23:33 04:14 WBC RBC 3.28 L Hgb 9.7 L Hct 28.9 L D MCHC RDW 16.4 H Lymph % (Auto) 10.3 L [place] % (Auto) 10.0 H Eos % (Auto) Lymph # [place] # Lymph # (Auto) 1.1 L [place] # (Auto) 1.1 H Eos # (Auto) Seg Neutrophils % 77.2 H Seg Neuts % (Manual) Lymphocytes % (Manual) Seg Neutrophils # 8.2 H Seg Neutrophils # Man Lymphocytes # (Manual) Monocytes % (Manual) Eosinophils % (Manual) Monocytes # (Manual) Eosinophils # (Manual) D-Dimer Heparin Anti-Xa Level ABG pH POC ABG pCO2 POC ABG pO2 ABG pO2 ABG HCO3 ABG O2 Saturation ABG Base Excess ABG Hemoglobin ABG Oxyhemoglobin VBG pH ABG Sodium ABG Potassium ABG Glucose Oxyhemoglobin Sodium Potassium Chloride Carbon Dioxide BUN Creatinine Glucose POC Glucose 136 H 159 H Lactic Acid Calcium Ferritin AST Alkaline Phosphatase Magnesium Lactate Dehydrogenase Total Creatine Kinase CK-MB (CK-2) C-Reactive Protein Total Protein Albumin Troponin T HDL Cholesterol Arterial Blood Glucose Urine WBC (Auto) Urine Creatinine Urine Total Protein Phenytoin Coronavirus (PCR) Crossmatch 09/30/20 09/30/20 09/30/20 04:14 12:10 18:10 WBC RBC Hgb Hct MCHC RDW Lymph % (Auto) [place] % (Auto) Eos % (Auto) Lymph # [place] # Lymph # (Auto) [place] # (Auto) Eos # (Auto) Seg Neutrophils % Seg Neuts % (Manual) Lymphocytes % (Manual) Seg Neutrophils # Seg Neutrophils # Man Lymphocytes # (Manual) Monocytes % (Manual) Eosinophils % (Manual) Monocytes # (Manual) Eosinophils # (Manual) D-Dimer Heparin Anti-Xa Level ABG pH POC ABG pCO2 POC ABG pO2 ABG pO2 ABG HCO3 ABG O2 Saturation ABG Base Excess ABG Hemoglobin ABG Oxyhemoglobin VBG pH ABG Sodium ABG Potassium ABG Glucose Oxyhemoglobin Sodium 136 L Potassium Chloride Carbon Dioxide BUN 84 H Creatinine 2.8 H Glucose 109 H POC Glucose 108 H 125 H Lactic Acid Calcium 8.1 L Ferritin AST Alkaline Phosphatase Magnesium 2.50 H Lactate Dehydrogenase Total Creatine Kinase CK-MB (CK-2) C-Reactive Protein Total Protein Albumin Troponin T HDL Cholesterol Arterial Blood Glucose Urine WBC (Auto) Urine Creatinine Urine Total Protein Phenytoin Coronavirus (PCR) Crossmatch 07/08/20 07/09/20 07/09/20 23:50 05:39 11:57 WBC RBC Hgb Hct MCHC RDW Lymph % (Auto) [place] % (Auto) Eos % (Auto) Lymph # [place] # Lymph # (Auto) [place] # (Auto) Eos # (Auto) Seg Neutrophils % Seg Neuts % (Manual) Lymphocytes % (Manual) Seg Neutrophils # Seg Neutrophils # Man Lymphocytes # (Manual) Monocytes % (Manual) Eosinophils % (Manual) Monocytes # (Manual) Eosinophils # (Manual) D-Dimer Heparin Anti-Xa Level ABG pH POC ABG pCO2 POC ABG pO2 ABG pO2 ABG HCO3 ABG O2 Saturation ABG Base Excess ABG Hemoglobin ABG Oxyhemoglobin VBG pH ABG Sodium ABG Potassium ABG Glucose Oxyhemoglobin Sodium Potassium Chloride Carbon Dioxide BUN Creatinine Glucose POC Glucose 141 H 121 H 123 H Lactic Acid Calcium Ferritin AST Alkaline Phosphatase Magnesium Lactate Dehydrogenase Total Creatine Kinase CK-MB (CK-2) C-Reactive Protein Total Protein Albumin Troponin T HDL Cholesterol Arterial Blood Glucose Urine WBC (Auto) Urine Creatinine Urine Total Protein Phenytoin Coronavirus (PCR) Crossmatch 07/09/20 07/10/20 07/10/20 17:56 00:29 05:50 WBC RBC Hgb Hct MCHC RDW Lymph % (Auto) [place] % (Auto) Eos % (Auto) Lymph # [place] # Lymph # (Auto) [place] # (Auto) Eos # (Auto) Seg Neutrophils % Seg Neuts % (Manual) Lymphocytes % (Manual) Seg Neutrophils # Seg Neutrophils # Man Lymphocytes # (Manual) Monocytes % (Manual) Eosinophils % (Manual) Monocytes # (Manual) Eosinophils # (Manual) D-Dimer Heparin Anti-Xa Level ABG pH POC ABG pCO2 POC ABG pO2 ABG pO2 ABG HCO3 ABG O2 Saturation ABG Base Excess ABG Hemoglobin ABG Oxyhemoglobin VBG pH ABG Sodium ABG Potassium ABG Glucose Oxyhemoglobin Sodium Potassium Chloride Carbon Dioxide BUN Creatinine Glucose POC Glucose 119 H 122 H 124 H Lactic Acid Calcium Ferritin AST Alkaline Phosphatase Magnesium Lactate Dehydrogenase Total Creatine Kinase CK-MB (CK-2) C-Reactive Protein Total Protein Albumin Troponin T HDL Cholesterol Arterial Blood Glucose Urine WBC (Auto) Urine Creatinine Urine Total Protein Phenytoin Coronavirus (PCR) Crossmatch 07/10/20 07/10/20 07/10/20 10:41 10:41 12:25 WBC RBC 3.11 L Hgb 9.2 L Hct 27.6 L MCHC RDW 16.6 H Lymph % (Auto) [place] % (Auto) Eos % (Auto) Lymph # [place] # Lymph # (Auto) [place] # (Auto) Eos # (Auto) Seg Neutrophils % Seg Neuts % (Manual) 78.0 H Lymphocytes % (Manual) 11.0 L Seg Neutrophils # Seg Neutrophils # Man Lymphocytes # (Manual) 1.0 L Monocytes % (Manual) Eosinophils % (Manual) Monocytes # (Manual) Eosinophils # (Manual) D-Dimer Heparin Anti-Xa Level ABG pH POC ABG pCO2 POC ABG pO2 ABG pO2 ABG HCO3 ABG O2 Saturation ABG Base Excess ABG Hemoglobin ABG Oxyhemoglobin VBG pH ABG Sodium ABG Potassium ABG Glucose Oxyhemoglobin Sodium Potassium Chloride Carbon Dioxide BUN 85 H Creatinine 2.5 H Glucose 133 H POC Glucose 131 H Lactic Acid Calcium Ferritin AST Alkaline Phosphatase 131 H Magnesium Lactate Dehydrogenase Total Creatine Kinase CK-MB (CK-2) C-Reactive Protein Total Protein 5.2 L Albumin 1.6 L Troponin T HDL Cholesterol Arterial Blood Glucose Urine WBC (Auto) Urine Creatinine Urine Total Protein Phenytoin Coronavirus (PCR) Crossmatch 07/10/20 07/11/20 07/11/20 18:10 00:28 05:57 WBC RBC Hgb Hct MCHC RDW Lymph % (Auto) [place] % (Auto) Eos % (Auto) Lymph # [place] # Lymph # (Auto) [place] # (Auto) Eos # (Auto) Seg Neutrophils % Seg Neuts % (Manual) Lymphocytes % (Manual) Seg Neutrophils # Seg Neutrophils # Man Lymphocytes # (Manual) Monocytes % (Manual) Eosinophils % (Manual) Monocytes # (Manual) Eosinophils # (Manual) D-Dimer Heparin Anti-Xa Level ABG pH POC ABG pCO2 POC ABG pO2 ABG pO2 ABG HCO3 ABG O2 Saturation ABG Base Excess ABG Hemoglobin ABG Oxyhemoglobin VBG pH ABG Sodium ABG Potassium ABG Glucose Oxyhemoglobin Sodium Potassium Chloride Carbon Dioxide BUN Creatinine Glucose POC Glucose 134 H 140 H 148 H Lactic Acid Calcium Ferritin AST Alkaline Phosphatase Magnesium Lactate Dehydrogenase Total Creatine Kinase CK-MB (CK-2) C-Reactive Protein Total Protein Albumin Troponin T HDL Cholesterol Arterial Blood Glucose Urine WBC (Auto) Urine Creatinine Urine Total Protein Phenytoin Coronavirus (PCR) Crossmatch 07/11/20 07/11/20 07/11/20 12:14 17:28 23:49 WBC RBC Hgb Hct MCHC RDW Lymph % (Auto) [place] % (Auto) Eos % (Auto) Lymph # [place] # Lymph # (Auto) [place] # (Auto) Eos # (Auto) Seg Neutrophils % Seg Neuts % (Manual) Lymphocytes % (Manual) Seg Neutrophils # Seg Neutrophils # Man Lymphocytes # (Manual) Monocytes % (Manual) Eosinophils % (Manual) Monocytes # (Manual) Eosinophils # (Manual) D-Dimer Heparin Anti-Xa Level ABG pH POC ABG pCO2 POC ABG pO2 ABG pO2 ABG HCO3 ABG O2 Saturation ABG Base Excess ABG Hemoglobin ABG Oxyhemoglobin VBG pH ABG Sodium ABG Potassium ABG Glucose Oxyhemoglobin Sodium Potassium Chloride Carbon Dioxide BUN Creatinine Glucose POC Glucose 147 H 175 H 114 H Lactic Acid Calcium Ferritin AST Alkaline Phosphatase Magnesium Lactate Dehydrogenase Total Creatine Kinase CK-MB (CK-2) C-Reactive Protein Total Protein Albumin Troponin T HDL Cholesterol Arterial Blood Glucose Urine WBC (Auto) Urine Creatinine Urine Total Protein Phenytoin Coronavirus (PCR) Crossmatch 07/12/20 07/12/20 07/12/20 05:14 05:14 05:44 WBC RBC 2.78 L Hgb 8.5 L Hct 25.3 L MCHC RDW 16.7 H Lymph % (Auto) [place] % (Auto) Eos % (Auto) Lymph # [place] # Lymph # (Auto) [place] # (Auto) Eos # (Auto) Seg Neutrophils % Seg Neuts % (Manual) 81.0 H Lymphocytes % (Manual) 6.0 L Seg Neutrophils # Seg Neutrophils # Man Lymphocytes # (Manual) 0.6 L Monocytes % (Manual) 8.0 H Eosinophils % (Manual) Monocytes # (Manual) Eosinophils # (Manual) D-Dimer Heparin Anti-Xa Level ABG pH POC ABG pCO2 POC ABG pO2 ABG pO2 ABG HCO3 ABG O2 Saturation ABG Base Excess ABG Hemoglobin ABG Oxyhemoglobin VBG pH ABG Sodium ABG Potassium ABG Glucose Oxyhemoglobin Sodium Potassium Chloride Carbon Dioxide BUN 79 H Creatinine 2.2 H Glucose 131 H POC Glucose 116 H Lactic Acid Calcium Ferritin AST Alkaline Phosphatase Magnesium Lactate Dehydrogenase Total Creatine Kinase CK-MB (CK-2) C-Reactive Protein Total Protein Albumin Troponin T HDL Cholesterol Arterial Blood Glucose Urine WBC (Auto) Urine Creatinine Urine Total Protein Phenytoin Coronavirus (PCR) Crossmatch 07/12/20 07/12/20 07/13/20 11:32 17:53 00:18 WBC RBC Hgb Hct MCHC RDW Lymph % (Auto) [place] % (Auto) Eos % (Auto) Lymph # [place] # Lymph # (Auto) [place] # (Auto) Eos # (Auto) Seg Neutrophils % Seg Neuts % (Manual) Lymphocytes % (Manual) Seg Neutrophils # Seg Neutrophils # Man Lymphocytes # (Manual) Monocytes % (Manual) Eosinophils % (Manual) Monocytes # (Manual) Eosinophils # (Manual) D-Dimer Heparin Anti-Xa Level ABG pH POC ABG pCO2 POC ABG pO2 ABG pO2 ABG HCO3 ABG O2 Saturation ABG Base Excess ABG Hemoglobin ABG Oxyhemoglobin VBG pH ABG Sodium ABG Potassium ABG Glucose Oxyhemoglobin Sodium Potassium Chloride Carbon Dioxide BUN Creatinine Glucose POC Glucose 132 H 155 H 162 H Lactic Acid Calcium Ferritin AST Alkaline Phosphatase Magnesium Lactate Dehydrogenase Total Creatine Kinase CK-MB (CK-2) C-Reactive Protein Total Protein Albumin Troponin T HDL Cholesterol Arterial Blood Glucose Urine WBC (Auto) Urine Creatinine Urine Total Protein Phenytoin Coronavirus (PCR) Crossmatch 07/13/20 07/13/20 07/13/20 04:53 04:53 06:14 WBC RBC 2.86 L Hgb 8.4 L Hct 25.7 L MCHC RDW 16.8 H Lymph % (Auto) [place] % (Auto) Eos % (Auto) Lymph # [place] # Lymph # (Auto) [place] # (Auto) Eos # (Auto) Seg Neutrophils % Seg Neuts % (Manual) 84.0 H Lymphocytes % (Manual) 7.0 L Seg Neutrophils # Seg Neutrophils # Man Lymphocytes # (Manual) 0.6 L Monocytes % (Manual) Eosinophils % (Manual) Monocytes # (Manual) Eosinophils # (Manual) D-Dimer Heparin Anti-Xa Level ABG pH POC ABG pCO2 POC ABG pO2 ABG pO2 ABG HCO3 ABG O2 Saturation ABG Base Excess ABG Hemoglobin ABG Oxyhemoglobin VBG pH ABG Sodium ABG Potassium ABG Glucose Oxyhemoglobin Sodium 136 L Potassium Chloride Carbon Dioxide BUN 78 H Creatinine 2.0 H Glucose 130 H POC Glucose 141 H Lactic Acid Calcium Ferritin AST Alkaline Phosphatase Magnesium Lactate Dehydrogenase Total Creatine Kinase CK-MB (CK-2) C-Reactive Protein Total Protein Albumin Troponin T HDL Cholesterol Arterial Blood Glucose Urine WBC (Auto) Urine Creatinine Urine Total Protein Phenytoin Coronavirus (PCR) Crossmatch 07/13/20 07/13/20 07/14/20 12:50 18:27 00:22 WBC RBC Hgb Hct MCHC RDW Lymph % (Auto) [place] % (Auto) Eos % (Auto) Lymph # [place] # Lymph # (Auto) [place] # (Auto) Eos # (Auto) Seg Neutrophils % Seg Neuts % (Manual) Lymphocytes % (Manual) Seg Neutrophils # Seg Neutrophils # Man Lymphocytes # (Manual) Monocytes % (Manual) Eosinophils % (Manual) Monocytes # (Manual) Eosinophils # (Manual) D-Dimer Heparin Anti-Xa Level ABG pH POC ABG pCO2 POC ABG pO2 ABG pO2 ABG HCO3 ABG O2 Saturation ABG Base Excess ABG Hemoglobin ABG Oxyhemoglobin VBG pH ABG Sodium ABG Potassium ABG Glucose Oxyhemoglobin Sodium Potassium Chloride Carbon Dioxide BUN Creatinine Glucose POC Glucose 146 H 149 H 157 H Lactic Acid Calcium Ferritin AST Alkaline Phosphatase Magnesium Lactate Dehydrogenase Total Creatine Kinase CK-MB (CK-2) C-Reactive Protein Total Protein Albumin Troponin T HDL Cholesterol Arterial Blood Glucose Urine WBC (Auto) Urine Creatinine Urine Total Protein Phenytoin Coronavirus (PCR) Crossmatch 07/14/20 07/14/20 07/14/20 05:43 08:04 12:12 WBC RBC Hgb Hct MCHC RDW Lymph % (Auto) [place] % (Auto) Eos % (Auto) Lymph # [place] # Lymph # (Auto) [place] # (Auto) Eos # (Auto) Seg Neutrophils % Seg Neuts % (Manual) Lymphocytes % (Manual) Seg Neutrophils # Seg Neutrophils # Man Lymphocytes # (Manual) Monocytes % (Manual) Eosinophils % (Manual) Monocytes # (Manual) Eosinophils # (Manual) D-Dimer Heparin Anti-Xa Level ABG pH POC ABG pCO2 POC ABG pO2 ABG pO2 ABG HCO3 ABG O2 Saturation ABG Base Excess ABG Hemoglobin ABG Oxyhemoglobin VBG pH ABG Sodium ABG Potassium ABG Glucose Oxyhemoglobin Sodium Potassium Chloride Carbon Dioxide BUN Creatinine Glucose POC Glucose 169 H 185 H Lactic Acid Calcium Ferritin AST Alkaline Phosphatase Magnesium Lactate Dehydrogenase Total Creatine Kinase CK-MB (CK-2) C-Reactive Protein Total Protein Albumin Troponin T HDL Cholesterol Arterial Blood Glucose Urine WBC (Auto) Urine Creatinine Urine Total Protein Phenytoin Coronavirus (PCR) Positive A Crossmatch 07/14/20 07/15/20 07/15/20 17:23 00:04 06:06 WBC RBC Hgb Hct MCHC RDW Lymph % (Auto) [place] % (Auto) Eos % (Auto) Lymph # [place] # Lymph # (Auto) [place] # (Auto) Eos # (Auto) Seg Neutrophils % Seg Neuts % (Manual) Lymphocytes % (Manual) Seg Neutrophils # Seg Neutrophils # Man Lymphocytes # (Manual) Monocytes % (Manual) Eosinophils % (Manual) Monocytes # (Manual) Eosinophils # (Manual) D-Dimer Heparin Anti-Xa Level ABG pH POC ABG pCO2 POC ABG pO2 ABG pO2 ABG HCO3 ABG O2 Saturation ABG Base Excess ABG Hemoglobin ABG Oxyhemoglobin VBG pH ABG Sodium ABG Potassium ABG Glucose Oxyhemoglobin Sodium Potassium Chloride Carbon Dioxide BUN Creatinine Glucose POC Glucose 138 H 121 H 140 H Lactic Acid Calcium Ferritin AST Alkaline Phosphatase Magnesium Lactate Dehydrogenase Total Creatine Kinase CK-MB (CK-2) C-Reactive Protein Total Protein Albumin Troponin T HDL Cholesterol Arterial Blood Glucose Urine WBC (Auto) Urine Creatinine Urine Total Protein Phenytoin Coronavirus (PCR) Crossmatch 07/15/20 07/15/20 07/15/20 12:00 17:53 23:53 WBC RBC Hgb Hct MCHC RDW Lymph % (Auto) [place] % (Auto) Eos % (Auto) Lymph # [place] # Lymph # (Auto) [place] # (Auto) Eos # (Auto) Seg Neutrophils % Seg Neuts % (Manual) Lymphocytes % (Manual) Seg Neutrophils # Seg Neutrophils # Man Lymphocytes # (Manual) Monocytes % (Manual) Eosinophils % (Manual) Monocytes # (Manual) Eosinophils # (Manual) D-Dimer Heparin Anti-Xa Level ABG pH POC ABG pCO2 POC ABG pO2 ABG pO2 ABG HCO3 ABG O2 Saturation ABG Base Excess ABG Hemoglobin ABG Oxyhemoglobin VBG pH ABG Sodium ABG Potassium ABG Glucose Oxyhemoglobin Sodium Potassium Chloride Carbon Dioxide BUN Creatinine Glucose POC Glucose 137 H 161 H 156 H Lactic Acid Calcium Ferritin AST Alkaline Phosphatase Magnesium Lactate Dehydrogenase Total Creatine Kinase CK-MB (CK-2) C-Reactive Protein Total Protein Albumin Troponin T HDL Cholesterol Arterial Blood Glucose Urine WBC (Auto) Urine Creatinine Urine Total Protein Phenytoin Coronavirus (PCR) Crossmatch 07/16/20 07/16/20 07/17/20 05:26 17:44 00:07 WBC RBC Hgb Hct MCHC RDW Lymph % (Auto) [place] % (Auto) Eos % (Auto) Lymph # [place] # Lymph # (Auto) [place] # (Auto) Eos # (Auto) Seg Neutrophils % Seg Neuts % (Manual) Lymphocytes % (Manual) Seg Neutrophils # Seg Neutrophils # Man Lymphocytes # (Manual) Monocytes % (Manual) Eosinophils % (Manual) Monocytes # (Manual) Eosinophils # (Manual) D-Dimer Heparin Anti-Xa Level ABG pH POC ABG pCO2 POC ABG pO2 ABG pO2 ABG HCO3 ABG O2 Saturation ABG Base Excess ABG Hemoglobin ABG Oxyhemoglobin VBG pH ABG Sodium ABG Potassium ABG Glucose Oxyhemoglobin Sodium Potassium Chloride Carbon Dioxide BUN Creatinine Glucose POC Glucose 152 H 126 H 189 H Lactic Acid Calcium Ferritin AST Alkaline Phosphatase Magnesium Lactate Dehydrogenase Total Creatine Kinase CK-MB (CK-2) C-Reactive Protein Total Protein Albumin Troponin T HDL Cholesterol Arterial Blood Glucose Urine WBC (Auto) Urine Creatinine Urine Total Protein Phenytoin Coronavirus (PCR) Crossmatch 07/17/20 07/17/20 07/17/20 12:06 18:20 23:25 WBC RBC Hgb Hct MCHC RDW Lymph % (Auto) [place] % (Auto) Eos % (Auto) Lymph # [place] # Lymph # (Auto) [place] # (Auto) Eos # (Auto) Seg Neutrophils % Seg Neuts % (Manual) Lymphocytes % (Manual) Seg Neutrophils # Seg Neutrophils # Man Lymphocytes # (Manual) Monocytes % (Manual) Eosinophils % (Manual) Monocytes # (Manual) Eosinophils # (Manual) D-Dimer Heparin Anti-Xa Level ABG pH POC ABG pCO2 POC ABG pO2 ABG pO2 ABG HCO3 ABG O2 Saturation ABG Base Excess ABG Hemoglobin ABG Oxyhemoglobin VBG pH ABG Sodium ABG Potassium ABG Glucose Oxyhemoglobin Sodium Potassium Chloride Carbon Dioxide BUN Creatinine Glucose POC Glucose 155 H 206 H 161 H Lactic Acid Calcium Ferritin AST Alkaline Phosphatase Magnesium Lactate Dehydrogenase Total Creatine Kinase CK-MB (CK-2) C-Reactive Protein Total Protein Albumin Troponin T HDL Cholesterol Arterial Blood Glucose Urine WBC (Auto) Urine Creatinine Urine Total Protein Phenytoin Coronavirus (PCR) Crossmatch 07/18/20 07/18/20 07/18/20 04:24 05:16 11:53 WBC RBC Hgb Hct MCHC RDW Lymph % (Auto) [place] % (Auto) Eos % (Auto) Lymph # [place] # Lymph # (Auto) [place] # (Auto) Eos # (Auto) Seg Neutrophils % Seg Neuts % (Manual) Lymphocytes % (Manual) Seg Neutrophils # Seg Neutrophils # Man Lymphocytes # (Manual) Monocytes % (Manual) Eosinophils % (Manual) Monocytes # (Manual) Eosinophils # (Manual) D-Dimer Heparin Anti-Xa Level ABG pH POC ABG pCO2 POC ABG pO2 ABG pO2 ABG HCO3 ABG O2 Saturation ABG Base Excess ABG Hemoglobin 8.8 L ABG Oxyhemoglobin VBG pH ABG Sodium 131.6 L ABG Potassium 4.9 H ABG Glucose 131 H Oxyhemoglobin Sodium Potassium Chloride Carbon Dioxide BUN Creatinine Glucose POC Glucose 140 H 176 H Lactic Acid Calcium Ferritin AST Alkaline Phosphatase Magnesium Lactate Dehydrogenase Total Creatine Kinase CK-MB (CK-2) C-Reactive Protein Total Protein Albumin Troponin T HDL Cholesterol Arterial Blood Glucose 131 H Urine WBC (Auto) Urine Creatinine Urine Total Protein Phenytoin Coronavirus (PCR) Crossmatch 07/18/20 07/18/20 07/19/20 18:11 23:51 01:05 WBC RBC 2.76 L Hgb 7.9 L Hct 24.5 L MCHC RDW 17.6 H Lymph % (Auto) 11.6 L [place] % (Auto) 13.1 H Eos % (Auto) Lymph # [place] # Lymph # (Auto) 1.0 L [place] # (Auto) 1.1 H Eos # (Auto) Seg Neutrophils % 70.9 H Seg Neuts % (Manual) Lymphocytes % (Manual) Seg Neutrophils # Seg Neutrophils # Man Lymphocytes # (Manual) Monocytes % (Manual) Eosinophils % (Manual) Monocytes # (Manual) Eosinophils # (Manual) D-Dimer Heparin Anti-Xa Level ABG pH POC ABG pCO2 POC ABG pO2 ABG pO2 ABG HCO3 ABG O2 Saturation ABG Base Excess ABG Hemoglobin ABG Oxyhemoglobin VBG pH ABG Sodium ABG Potassium ABG Glucose Oxyhemoglobin Sodium Potassium Chloride Carbon Dioxide BUN Creatinine Glucose POC Glucose 143 H 159 H Lactic Acid Calcium Ferritin AST Alkaline Phosphatase Magnesium Lactate Dehydrogenase Total Creatine Kinase CK-MB (CK-2) C-Reactive Protein Total Protein Albumin Troponin T HDL Cholesterol Arterial Blood Glucose Urine WBC (Auto) Urine Creatinine Urine Total Protein Phenytoin Coronavirus (PCR) Crossmatch 07/19/20 07/19/20 07/19/20 01:05 05:54 12:46 WBC RBC Hgb Hct MCHC RDW Lymph % (Auto) [place] % (Auto) Eos % (Auto) Lymph # [place] # Lymph # (Auto) [place] # (Auto) Eos # (Auto) Seg Neutrophils % Seg Neuts % (Manual) Lymphocytes % (Manual) Seg Neutrophils # Seg Neutrophils # Man Lymphocytes # (Manual) Monocytes % (Manual) Eosinophils % (Manual) Monocytes # (Manual) Eosinophils # (Manual) D-Dimer Heparin Anti-Xa Level ABG pH POC ABG pCO2 POC ABG pO2 ABG pO2 ABG HCO3 ABG O2 Saturation ABG Base Excess ABG Hemoglobin ABG Oxyhemoglobin VBG pH ABG Sodium ABG Potassium ABG Glucose Oxyhemoglobin Sodium Potassium Chloride Carbon Dioxide BUN 86 H Creatinine 1.7 H Glucose 149 H POC Glucose 176 H 127 H Lactic Acid Calcium Ferritin AST Alkaline Phosphatase Magnesium Lactate Dehydrogenase Total Creatine Kinase CK-MB (CK-2) C-Reactive Protein Total Protein Albumin Troponin T HDL Cholesterol Arterial Blood Glucose Urine WBC (Auto) Urine Creatinine Urine Total Protein Phenytoin Coronavirus (PCR) Crossmatch 07/19/20 07/20/20 07/20/20 17:48 00:34 05:28 WBC RBC Hgb Hct MCHC RDW Lymph % (Auto) [place] % (Auto) Eos % (Auto) Lymph # [place] # Lymph # (Auto) [place] # (Auto) Eos # (Auto) Seg Neutrophils % Seg Neuts % (Manual) Lymphocytes % (Manual) Seg Neutrophils # Seg Neutrophils # Man Lymphocytes # (Manual) Monocytes % (Manual) Eosinophils % (Manual) Monocytes # (Manual) Eosinophils # (Manual) D-Dimer Heparin Anti-Xa Level ABG pH POC ABG pCO2 POC ABG pO2 ABG pO2 ABG HCO3 ABG O2 Saturation ABG Base Excess ABG Hemoglobin ABG Oxyhemoglobin VBG pH ABG Sodium ABG Potassium ABG Glucose Oxyhemoglobin Sodium Potassium Chloride Carbon Dioxide BUN Creatinine Glucose POC Glucose 123 H 147 H 110 H Lactic Acid Calcium Ferritin AST Alkaline Phosphatase Magnesium Lactate Dehydrogenase Total Creatine Kinase CK-MB (CK-2) C-Reactive Protein Total Protein Albumin Troponin T HDL Cholesterol Arterial Blood Glucose Urine WBC (Auto) Urine Creatinine Urine Total Protein Phenytoin Coronavirus (PCR) Crossmatch 07/20/20 07/20/20 07/21/20 12:10 17:00 00:11 WBC RBC Hgb Hct MCHC RDW Lymph % (Auto) [place] % (Auto) Eos % (Auto) Lymph # [place] # Lymph # (Auto) [place] # (Auto) Eos # (Auto) Seg Neutrophils % Seg Neuts % (Manual) Lymphocytes % (Manual) Seg Neutrophils # Seg Neutrophils # Man Lymphocytes # (Manual) Monocytes % (Manual) Eosinophils % (Manual) Monocytes # (Manual) Eosinophils # (Manual) D-Dimer Heparin Anti-Xa Level ABG pH POC ABG pCO2 POC ABG pO2 ABG pO2 ABG HCO3 ABG O2 Saturation ABG Base Excess ABG Hemoglobin ABG Oxyhemoglobin VBG pH ABG Sodium ABG Potassium ABG Glucose Oxyhemoglobin Sodium Potassium Chloride Carbon Dioxide BUN Creatinine Glucose POC Glucose 149 H 173 H 128 H Lactic Acid Calcium Ferritin AST Alkaline Phosphatase Magnesium Lactate Dehydrogenase Total Creatine Kinase CK-MB (CK-2) C-Reactive Protein Total Protein Albumin Troponin T HDL Cholesterol Arterial Blood Glucose Urine WBC (Auto) Urine Creatinine Urine Total Protein Phenytoin Coronavirus (PCR) Crossmatch 07/21/20 07/21/20 07/21/20 05:30 12:21 18:17 WBC RBC Hgb Hct MCHC RDW Lymph % (Auto) [place] % (Auto) Eos % (Auto) Lymph # [place] # Lymph # (Auto) [place] # (Auto) Eos # (Auto) Seg Neutrophils % Seg Neuts % (Manual) Lymphocytes % (Manual) Seg Neutrophils # Seg Neutrophils # Man Lymphocytes # (Manual) Monocytes % (Manual) Eosinophils % (Manual) Monocytes # (Manual) Eosinophils # (Manual) D-Dimer Heparin Anti-Xa Level ABG pH POC ABG pCO2 POC ABG pO2 ABG pO2 ABG HCO3 ABG O2 Saturation ABG Base Excess ABG Hemoglobin ABG Oxyhemoglobin VBG pH ABG Sodium ABG Potassium ABG Glucose Oxyhemoglobin Sodium Potassium Chloride Carbon Dioxide BUN Creatinine Glucose POC Glucose 153 H 144 H 160 H Lactic Acid Calcium Ferritin AST Alkaline Phosphatase Magnesium Lactate Dehydrogenase Total Creatine Kinase CK-MB (CK-2) C-Reactive Protein Total Protein Albumin Troponin T HDL Cholesterol Arterial Blood Glucose Urine WBC (Auto) Urine Creatinine Urine Total Protein Phenytoin Coronavirus (PCR) Crossmatch 07/22/20 07/22/20 07/22/20 00:45 05:52 12:03 WBC RBC Hgb Hct MCHC RDW Lymph % (Auto) [place] % (Auto) Eos % (Auto) Lymph # [place] # Lymph # (Auto) [place] # (Auto) Eos # (Auto) Seg Neutrophils % Seg Neuts % (Manual) Lymphocytes % (Manual) Seg Neutrophils # Seg Neutrophils # Man Lymphocytes # (Manual) Monocytes % (Manual) Eosinophils % (Manual) Monocytes # (Manual) Eosinophils # (Manual) D-Dimer Heparin Anti-Xa Level ABG pH POC ABG pCO2 POC ABG pO2 ABG pO2 ABG HCO3 ABG O2 Saturation ABG Base Excess ABG Hemoglobin ABG Oxyhemoglobin VBG pH ABG Sodium ABG Potassium ABG Glucose Oxyhemoglobin Sodium Potassium Chloride Carbon Dioxide BUN Creatinine Glucose POC Glucose 128 H 126 H 157 H Lactic Acid Calcium Ferritin AST Alkaline Phosphatase Magnesium Lactate Dehydrogenase Total Creatine Kinase CK-MB (CK-2) C-Reactive Protein Total Protein Albumin Troponin T HDL Cholesterol Arterial Blood Glucose Urine WBC (Auto) Urine Creatinine Urine Total Protein Phenytoin Coronavirus (PCR) Crossmatch 07/22/20 07/22/20 07/23/20 18:23 23:20 06:06 WBC RBC Hgb Hct MCHC RDW Lymph % (Auto) [place] % (Auto) Eos % (Auto) Lymph # [place] # Lymph # (Auto) [place] # (Auto) Eos # (Auto) Seg Neutrophils % Seg Neuts % (Manual) Lymphocytes % (Manual) Seg Neutrophils # Seg Neutrophils # Man Lymphocytes # (Manual) Monocytes % (Manual) Eosinophils % (Manual) Monocytes # (Manual) Eosinophils # (Manual) D-Dimer Heparin Anti-Xa Level ABG pH POC ABG pCO2 POC ABG pO2 ABG pO2 ABG HCO3 ABG O2 Saturation ABG Base Excess ABG Hemoglobin ABG Oxyhemoglobin VBG pH ABG Sodium ABG Potassium ABG Glucose Oxyhemoglobin Sodium Potassium Chloride Carbon Dioxide BUN Creatinine Glucose POC Glucose 152 H 122 H 143 H Lactic Acid Calcium Ferritin AST Alkaline Phosphatase Magnesium Lactate Dehydrogenase Total Creatine Kinase CK-MB (CK-2) C-Reactive Protein Total Protein Albumin Troponin T HDL Cholesterol Arterial Blood Glucose Urine WBC (Auto) Urine Creatinine Urine Total Protein Phenytoin Coronavirus (PCR) Crossmatch 07/23/20 07/23/20 07/23/20 12:11 17:38 19:23 WBC RBC Hgb Hct MCHC RDW Lymph % (Auto) [place] % (Auto) Eos % (Auto) Lymph # [place] # Lymph # (Auto) [place] # (Auto) Eos # (Auto) Seg Neutrophils % Seg Neuts % (Manual) Lymphocytes % (Manual) Seg Neutrophils # Seg Neutrophils # Man Lymphocytes # (Manual) Monocytes % (Manual) Eosinophils % (Manual) Monocytes # (Manual) Eosinophils # (Manual) D-Dimer Heparin Anti-Xa Level ABG pH POC ABG pCO2 POC ABG pO2 ABG pO2 ABG HCO3 ABG O2 Saturation ABG Base Excess ABG Hemoglobin ABG Oxyhemoglobin VBG pH ABG Sodium ABG Potassium ABG Glucose Oxyhemoglobin Sodium 129 L D Potassium 5.8 H Chloride 95.6 L Carbon Dioxide BUN 98 H Creatinine 2.1 H Glucose 167 H POC Glucose 210 H 181 H Lactic Acid Calcium Ferritin AST Alkaline Phosphatase Magnesium Lactate Dehydrogenase Total Creatine Kinase CK-MB (CK-2) C-Reactive Protein Total Protein Albumin 2.2 L Troponin T HDL Cholesterol Arterial Blood Glucose Urine WBC (Auto) Urine Creatinine Urine Total Protein Phenytoin Coronavirus (PCR) Crossmatch 07/24/20 07/24/20 07/24/20 00:00 04:29 04:29 WBC RBC 2.53 L Hgb 7.5 L Hct 22.8 L MCHC RDW 16.8 H Lymph % (Auto) 9.4 L [place] % (Auto) 10.4 H Eos % (Auto) 5.9 H Lymph # [place] # Lymph # (Auto) 0.8 L [place] # (Auto) 0.9 H Eos # (Auto) 0.5 H Seg Neutrophils % 73.5 H Seg Neuts % (Manual) Lymphocytes % (Manual) Seg Neutrophils # Seg Neutrophils # Man Lymphocytes # (Manual) Monocytes % (Manual) Eosinophils % (Manual) Monocytes # (Manual) Eosinophils # (Manual) D-Dimer Heparin Anti-Xa Level ABG pH POC ABG pCO2 POC ABG pO2 ABG pO2 ABG HCO3 ABG O2 Saturation ABG Base Excess ABG Hemoglobin ABG Oxyhemoglobin VBG pH ABG Sodium ABG Potassium ABG Glucose Oxyhemoglobin Sodium Potassium Chloride Carbon Dioxide BUN Creatinine Glucose POC Glucose 201 H Lactic Acid Calcium Ferritin AST Alkaline Phosphatase Magnesium Lactate Dehydrogenase Total Creatine Kinase CK-MB (CK-2) C-Reactive Protein Total Protein Albumin Troponin T HDL Cholesterol Arterial Blood Glucose Urine WBC (Auto) Urine Creatinine Urine Total Protein Phenytoin 9.4 L Coronavirus (PCR) Crossmatch 07/24/20 07/24/20 07/24/20 04:29 05:11 12:14 WBC RBC Hgb Hct MCHC RDW Lymph % (Auto) [place] % (Auto) Eos % (Auto) Lymph # [place] # Lymph # (Auto) [place] # (Auto) Eos # (Auto) Seg Neutrophils % Seg Neuts % (Manual) Lymphocytes % (Manual) Seg Neutrophils # Seg Neutrophils # Man Lymphocytes # (Manual) Monocytes % (Manual) Eosinophils % (Manual) Monocytes # (Manual) Eosinophils # (Manual) D-Dimer Heparin Anti-Xa Level ABG pH POC ABG pCO2 POC ABG pO2 ABG pO2 ABG HCO3 ABG O2 Saturation ABG Base Excess ABG Hemoglobin ABG Oxyhemoglobin VBG pH ABG Sodium ABG Potassium ABG Glucose Oxyhemoglobin Sodium 134 L Potassium 5.5 H Chloride Carbon Dioxide BUN 97 H Creatinine 2.2 H Glucose 149 H POC Glucose 142 H 146 H Lactic Acid Calcium Ferritin AST Alkaline Phosphatase Magnesium 2.60 H Lactate Dehydrogenase Total Creatine Kinase CK-MB (CK-2) C-Reactive Protein Total Protein Albumin Troponin T HDL Cholesterol Arterial Blood Glucose Urine WBC (Auto) Urine Creatinine Urine Total Protein Phenytoin Coronavirus (PCR) Crossmatch 07/24/20 07/24/20 07/25/20 18:12 21:00 00:08 WBC RBC Hgb Hct MCHC RDW Lymph % (Auto) [place] % (Auto) Eos % (Auto) Lymph # [place] # Lymph # (Auto) [place] # (Auto) Eos # (Auto) Seg Neutrophils % Seg Neuts % (Manual) Lymphocytes % (Manual) Seg Neutrophils # Seg Neutrophils # Man Lymphocytes # (Manual) Monocytes % (Manual) Eosinophils % (Manual) Monocytes # (Manual) Eosinophils # (Manual) D-Dimer Heparin Anti-Xa Level ABG pH POC ABG pCO2 POC ABG pO2 ABG pO2 ABG HCO3 ABG O2 Saturation ABG Base Excess ABG Hemoglobin ABG Oxyhemoglobin VBG pH ABG Sodium ABG Potassium ABG Glucose Oxyhemoglobin Sodium Potassium Chloride Carbon Dioxide BUN Creatinine Glucose POC Glucose 182 H 170 H 129 H Lactic Acid Calcium Ferritin AST Alkaline Phosphatase Magnesium Lactate Dehydrogenase Total Creatine Kinase CK-MB (CK-2) C-Reactive Protein Total Protein Albumin Troponin T HDL Cholesterol Arterial Blood Glucose Urine WBC (Auto) Urine Creatinine Urine Total Protein Phenytoin Coronavirus (PCR) Crossmatch 07/25/20 07/25/20 07/25/20 04:24 04:24 12:19 WBC RBC 2.51 L Hgb 7.5 L Hct 22.3 L MCHC RDW 17.4 H Lymph % (Auto) [place] % (Auto) Eos % (Auto) Lymph # [place] # Lymph # (Auto) [place] # (Auto) Eos # (Auto) Seg Neutrophils % Seg Neuts % (Manual) Lymphocytes % (Manual) Seg Neutrophils # Seg Neutrophils # Man Lymphocytes # (Manual) Monocytes % (Manual) Eosinophils % (Manual) Monocytes # (Manual) Eosinophils # (Manual) D-Dimer Heparin Anti-Xa Level ABG pH POC ABG pCO2 POC ABG pO2 ABG pO2 ABG HCO3 ABG O2 Saturation ABG Base Excess ABG Hemoglobin ABG Oxyhemoglobin VBG pH ABG Sodium ABG Potassium ABG Glucose Oxyhemoglobin Sodium 132 L Potassium Chloride 95.1 L Carbon Dioxide 21 L BUN 95 H Creatinine 2.5 H Glucose 108 H POC Glucose 122 H Lactic Acid Calcium Ferritin AST Alkaline Phosphatase Magnesium Lactate Dehydrogenase Total Creatine Kinase CK-MB (CK-2) C-Reactive Protein Total Protein Albumin Troponin T HDL Cholesterol Arterial Blood Glucose Urine WBC (Auto) Urine Creatinine Urine Total Protein Phenytoin Coronavirus (PCR) Crossmatch 07/25/20 07/25/20 07/26/20 18:11 23:24 04:22 WBC RBC Hgb Hct MCHC RDW Lymph % (Auto) [place] % (Auto) Eos % (Auto) Lymph # [place] # Lymph # (Auto) [place] # (Auto) Eos # (Auto) Seg Neutrophils % Seg Neuts % (Manual) Lymphocytes % (Manual) Seg Neutrophils # Seg Neutrophils # Man Lymphocytes # (Manual) Monocytes % (Manual) Eosinophils % (Manual) Monocytes # (Manual) Eosinophils # (Manual) D-Dimer Heparin Anti-Xa Level ABG pH POC ABG pCO2 POC ABG pO2 ABG pO2 ABG HCO3 ABG O2 Saturation ABG Base Excess ABG Hemoglobin ABG Oxyhemoglobin VBG pH ABG Sodium ABG Potassium ABG Glucose Oxyhemoglobin Sodium 132 L Potassium Chloride 96.2 L Carbon Dioxide 21 L BUN 99 H Creatinine 2.5 H Glucose 132 H POC Glucose 137 H 117 H Lactic Acid Calcium 8.2 L Ferritin AST Alkaline Phosphatase Magnesium Lactate Dehydrogenase Total Creatine Kinase CK-MB (CK-2) C-Reactive Protein Total Protein Albumin Troponin T HDL Cholesterol Arterial Blood Glucose Urine WBC (Auto) Urine Creatinine Urine Total Protein Phenytoin Coronavirus (PCR) Crossmatch 07/26/20 07/26/20 07/26/20 05:58 12:21 17:31 WBC RBC Hgb Hct MCHC RDW Lymph % (Auto) [place] % (Auto) Eos % (Auto) Lymph # [place] # Lymph # (Auto) [place] # (Auto) Eos # (Auto) Seg Neutrophils % Seg Neuts % (Manual) Lymphocytes % (Manual) Seg Neutrophils # Seg Neutrophils # Man Lymphocytes # (Manual) Monocytes % (Manual) Eosinophils % (Manual) Monocytes # (Manual) Eosinophils # (Manual) D-Dimer Heparin Anti-Xa Level ABG pH POC ABG pCO2 POC ABG pO2 ABG pO2 ABG HCO3 ABG O2 Saturation ABG Base Excess ABG Hemoglobin ABG Oxyhemoglobin VBG pH ABG Sodium ABG Potassium ABG Glucose Oxyhemoglobin Sodium Potassium Chloride Carbon Dioxide BUN Creatinine Glucose POC Glucose 110 H 142 H 180 H Lactic Acid Calcium Ferritin AST Alkaline Phosphatase Magnesium Lactate Dehydrogenase Total Creatine Kinase CK-MB (CK-2) C-Reactive Protein Total Protein Albumin Troponin T HDL Cholesterol Arterial Blood Glucose Urine WBC (Auto) Urine Creatinine Urine Total Protein Phenytoin Coronavirus (PCR) Crossmatch 07/26/20 07/27/20 07/27/20 23:36 03:36 05:36 WBC RBC 2.49 L Hgb 7.3 L Hct 22.2 L MCHC RDW 17.2 H Lymph % (Auto) 11.0 L [place] % (Auto) 11.7 H Eos % (Auto) Lymph # [place] # Lymph # (Auto) 0.8 L [place] # (Auto) 0.9 H Eos # (Auto) Seg Neutrophils % 72.3 H Seg Neuts % (Manual) Lymphocytes % (Manual) Seg Neutrophils # Seg Neutrophils # Man Lymphocytes # (Manual) Monocytes % (Manual) Eosinophils % (Manual) Monocytes # (Manual) Eosinophils # (Manual) D-Dimer Heparin Anti-Xa Level ABG pH POC ABG pCO2 POC ABG pO2 ABG pO2 ABG HCO3 ABG O2 Saturation ABG Base Excess ABG Hemoglobin ABG Oxyhemoglobin VBG pH ABG Sodium ABG Potassium ABG Glucose Oxyhemoglobin Sodium Potassium Chloride Carbon Dioxide BUN Creatinine Glucose POC Glucose 162 H 118 H Lactic Acid Calcium Ferritin AST Alkaline Phosphatase Magnesium Lactate Dehydrogenase Total Creatine Kinase CK-MB (CK-2) C-Reactive Protein Total Protein Albumin Troponin T HDL Cholesterol Arterial Blood Glucose Urine WBC (Auto) Urine Creatinine Urine Total Protein Phenytoin Coronavirus (PCR) Crossmatch 07/27/20 07/27/20 07/27/20 05:36 12:19 17:36 WBC RBC Hgb Hct MCHC RDW Lymph % (Auto) [place] % (Auto) Eos % (Auto) Lymph # [place] # Lymph # (Auto) [place] # (Auto) Eos # (Auto) Seg Neutrophils % Seg Neuts % (Manual) Lymphocytes % (Manual) Seg Neutrophils # Seg Neutrophils # Man Lymphocytes # (Manual) Monocytes % (Manual) Eosinophils % (Manual) Monocytes # (Manual) Eosinophils # (Manual) D-Dimer Heparin Anti-Xa Level ABG pH POC ABG pCO2 POC ABG pO2 ABG pO2 ABG HCO3 ABG O2 Saturation ABG Base Excess ABG Hemoglobin ABG Oxyhemoglobin VBG pH ABG Sodium ABG Potassium ABG Glucose Oxyhemoglobin Sodium 135 L Potassium 5.3 H Chloride Carbon Dioxide 21 L BUN 103 H Creatinine 2.6 H Glucose 113 H POC Glucose 131 H 151 H Lactic Acid Calcium 8.1 L Ferritin AST Alkaline Phosphatase Magnesium Lactate Dehydrogenase Total Creatine Kinase CK-MB (CK-2) C-Reactive Protein Total Protein Albumin Troponin T HDL Cholesterol Arterial Blood Glucose Urine WBC (Auto) Urine Creatinine Urine Total Protein Phenytoin Coronavirus (PCR) Crossmatch 07/27/20 07/28/20 07/28/20 23:29 04:30 04:30 WBC RBC 2.50 L Hgb 7.3 L Hct 22.2 L MCHC RDW 17.3 H Lymph % (Auto) 8.7 L [place] % (Auto) 8.3 H Eos % (Auto) Lymph # [place] # Lymph # (Auto) 0.7 L [place] # (Auto) Eos # (Auto) Seg Neutrophils % 79.1 H Seg Neuts % (Manual) Lymphocytes % (Manual) Seg Neutrophils # Seg Neutrophils # Man Lymphocytes # (Manual) Monocytes % (Manual) Eosinophils % (Manual) Monocytes # (Manual) Eosinophils # (Manual) D-Dimer Heparin Anti-Xa Level ABG pH POC ABG pCO2 POC ABG pO2 ABG pO2 ABG HCO3 ABG O2 Saturation ABG Base Excess ABG Hemoglobin ABG Oxyhemoglobin VBG pH ABG Sodium ABG Potassium ABG Glucose Oxyhemoglobin Sodium 135 L Potassium 5.2 H Chloride 96.8 L Carbon Dioxide 20 L BUN 107 H Creatinine 2.9 H Glucose POC Glucose 124 H Lactic Acid Calcium 8.2 L Ferritin AST Alkaline Phosphatase Magnesium 2.70 H Lactate Dehydrogenase Total Creatine Kinase CK-MB (CK-2) C-Reactive Protein Total Protein Albumin Troponin T HDL Cholesterol Arterial Blood Glucose Urine WBC (Auto) Urine Creatinine Urine Total Protein Phenytoin Coronavirus (PCR) Crossmatch Chest x-ray: pending Allied health notes reviewed: nursing
[2020-07-28] MEDS: PHENYTOIN 100 MG/4 ML ORAL.LIQD FEEDTUBE SCH ×2 (13:28→21:05)
--- NOTE | 2020-07-28 13:58 | Progress Note ---
Assessment and Plan Assessment and plan: 64 YO Female with a medical history of HTN, Diastolic CHF, Pulmonary HTN, DM, Obesity Hypoventilation Syndrome presents to ED for evaluation of shortness of breath. As per staff, the EMS was notified for difficulty breathing. Upon arrival to the patient's home the patient was found to be in distress and was subsequently transported to [facility] for further evaluation and care. In route to [facility] the patient developed cardiac arrest and was treated in accordance with ACLS protocol with return of ROSC. Patient was seen and evaluated in the emergency department and was intubated and placed on ventilatory support. Patient admitted to ICU. Critical care team consulted in ED. She was found to have COVID-19 infection and was started on steroids and remdesivir. ID was consulted. Cardiology was consulted for her systolic heart failure and cardiac arrest. Patient completed treatment for COVID-19, then develop superimposed bacterial pneumonia with Klebsiella. She is now extubated, 06/12/2020 but remains confused and requiring high flow O2 and intermittent BiPAP. Patient had another cardiac arrest reintubated 06/26/2020, currently in ICU vent dependent, unable to do trach and PEG due to persistent COVID-19 positive state, as well as anoxic brain injury, unable to get MRI , neurology following. Assessment and plan: 05/28/2020 COVID-19 test positive 06/29/2020 COVID-19 test positive 07/14/2020 COVID-19 test positive --Acute hypoxemic respiratory failure; vent dependent intubated on admission, extubated on 06/12/20 then placed on high flow o2 patient developed another respiratory arrest on 06/26 - reintubated Patient not tolerating weaning parameters CC following, Surgery evaluated the patient for trach and PEG COVID-19 test positive x3, trach and PEG pending neuro evaluation to evaluate severity of anoxic brain injury -- Hypertension; well controlled Increase hydralazine dose to 75 mg 3 times a day Continue amlodipine, coreg, clonidine and hydralazine And minoxidil, closely monitor blood pressures PRN labetalol --s/p cardiopulmonary arrest on admission, 06/26 and 07/01, s/p CPR per ACLS protocol, refer to code sheet --Possible anoxic brain injury, neurology consulted, neuro requested MRI brain, EEG MRI brain could not be done due to body habitus, EEG not done --Seizures seizure precautions; continue Keppra, follow EEG neurology following --Acute renal failure : creatinine 2.4-2.5-2.9-1.7 --Acute renal failure : creatinine 2.4-2.5-2.9-1.7 Vasomotor nephropathy, gentle hydration Avoid nephrotoxins, monitor renal function Reconsult nephrology if needed --Rectal bleeding; resolved --Acute blood loss anemia; total 3 units PRBC transfused Closely monitor H&H, GI following, no plans of endoscopy --Severe sepsis; completed antibiotics per ID persistently positive for COVID-19 and Klebsiella pneumoniae --COVID-19 b/l PNA Completed remdesivir on 06/02 Completed dexamethasone - Last dose 06/07 COVID 19 test positive x 3 during this admission --Superficial left cephalic vein DVT/elevated D-dimers[COVID 19] Patient initially started on heparin drip from 05/29/20 D-dimers improved [id number] treated with Eliquis 5 mg twice a day for 1 week[per ID] stop date 06/26/2020 -- Acute toxic metabolic encephalopathy, POA likely from sepsis and s/p cardiac arrest with possible anoxic injury -- Acute renal failure: likely ATN avoid nephrotoxins, reconsult nephrology if no improvement --Klebsiella pneumonia: ID evaluated completed second round of 5 days of cefepime on 07/04/2020 --Acute on chronic systolic heart failure Cardiology following. Ef 45% -- Coffee ground emesis -Stress ulcers Possible stress ulcers, On PPI H/H again dropped - transfuse GI evaluated --Transaminitis. Etiology likely from COVID-19. cont to monitor --Hyperkalemia; calcium gluconate, Kayexalate, monitor electrolytes --Shock; fluid bolus, Levophed per protocol Patient critically ill poor prognosis Currently patient is hypertensive -- DVT prophylaxis Eliquis, SCD to bilateral lower extremities while in bed -- Advance care planning Patient is critically ill with multiple medical problems Poor prognosis, family updated and requesting full code The high probability of a clinically significant, sudden or life threatening deterioration of the [CVS, renal, respiratory, COMPRESS ENGINEER] system(s) required my full and direct attention, intervention and personal management. The aggregate critical care time was [35] minutes. This time is in addition to time spent performing reported procedures but includes the following: [x] Data Review and interpretation [x] Patient assessment and monitoring of vital signs [x] Documentation [x] Medication orders and management 07/11/2020. Patient currently on mechanical ventilation AC/PRVC with rate of 12, tidal volume 450, FiO2 30% and PEEP of 6 07/12/2020. Patient placed on CPAP with pressure support of 10 and tolerating well. Continue PSB trials as tolerated. 07/13/2020. Patient currently with AC mode rate 12, tidal volume 450, FiO2 30% and PEEP of 6. Surgery has been consulted for trach and PEG placement. Recall nephrology for renal insufficiency. 07/14/20; surgery evaluated for trach and PEG , pending call with test which is is positive today COVID-19 test positive x3 since admission 07/16; trach and PEG pending neuro evaluation 07/17; vent dependent, trach PEG pending neuro evaluation, pending MRI EEG study[already ordered] 07/18; unable to do MRI, due to body habitus, morbid obesity, radiology consult Patient critically ill very poor prognosis 07/19; remains intubated on vent, clinically no change 07/20; unable to wean, needs trach and PEG, need MRI , unable to do due to body habitus 07/21; clinically no change, remains intubated on ventilatory support 07/22; I recommend family meeting, to discuss the goals of treatment, discussed with case management 07/23; patient's blood pressures in the lower range, will hold antihypertensives, fluid bolus, if no improvement Levophed per protocol 07/24: Patient remains critically ill, unable to obtain MRI at this facility and unstable for transfer, Will reconsult Nephrology as creatinine now worse, with worsening Hypotension and Hyperkalemia- Overnight the patient required pressors Secondary to Hypotension, Will place PICC line. Will give kayxalate, continue to hold all BP meds. Hyponatermia improving. 07/24; patient remains to critically ill, nephrology consult appreciated, creatinine is worsening. Hypotension resolved with. Still patient is hypernatremic 07/26; patient is hypertensive and her blood pressure medications were resumed and as needed medications also started. Patient is being followed by nephrology for hyponatremia and AVANI. Patient has anemia. We will check labs in the morning. 07/27; patient is still intubated and on mechanical ventilation. Followed by pulmonary critical care. Nephrology is considering to dialyze the patient after discussing with the family. 07/28; patient is intubated and on mechanical ventilation, patient is nonresponsive without pressors. Creatinine is trending up and nephrology is considering to dialysis. I called her son Toño at [phone] and discussed about the prognosis of the patient and I gave the option of hospice care/withdraw care and he said he is going to talk to his sister and will get back to me. History Interval history: Patient was seen and evaluated this morning Patient is intubated and on mechanical ventilation Not responding Hospitalist Physical - Physical exam Narrative exam: Intubated and on mechanical ventilation The patient is morbidly obese. Vital signs as documented. Head exam is unremarkable. No scleral icterus . Neck is without jugular venous distension, thyromegaly, or carotid bruits. Lungs are clear to auscultation. Cardiac exam reveals regular rate and Rhythm. Abdominal exam reveals normal bowel sounds, nontender, no organomegaly. Extremities are nonedematous and both femoral and pedal pulses are normal. COMPRESS ENGINEER: Intubated. - Constitutional Vitals: Temp Pulse Resp BP Pulse Ox 98.1 F 61 34 H 168/30 93 07/28/20 04:00 07/28/20 12:01 07/28/20 12:01 07/28/20 12:01 07/28/20 12:01 General appearance: Present: no acute distress, well-nourished, obese (Morbidly obese), other (Intubated on ventilatory support) HEART Score - HEART Score Troponin: Troponin T 0.067 ng/mL (0.00-0.029) H 07/01/20 06:01 Results - Labs CBC & Chem 7: 07/28/20 04:30 07/28/20 04:30 Labs: Laboratory Last Values WBC 8.1 K/mm3 (4.5-11.0) 07/28/20 04:30 RBC 2.50 M/mm3 (3.65-5.03) L 07/28/20 04:30 Hgb 7.3 gm/dl (10.1-14.3) L 07/28/20 04:30 Hct 22.2 % (30.3-42.9) L 07/28/20 04:30 MCV 89 fl (79-97) 07/28/20 04:30 MCH 29 pg (28-32) 07/28/20 04:30 MCHC 33 % (30-34) 07/28/20 04:30 RDW 17.3 % (13.2-15.2) H 07/28/20 04:30 Plt Count 433 K/mm3 (140-440) 07/28/20 04:30 Lymph % (Auto) 8.7 % (13.4-35.0) L 07/28/20 04:30 [place] % (Auto) 8.3 % (0.0-7.3) H 07/28/20 04:30 Eos % (Auto) 3.3 % (0.0-4.3) 07/28/20 04:30 Baso % (Auto) 0.6 % (0.0-1.8) 07/28/20 04:30 Lymph # (Auto) 0.7 K/mm3 (1.2-5.4) L 07/28/20 04:30 [place] # (Auto) 0.7 K/mm3 (0.0-0.8) 07/28/20 04:30 Eos # (Auto) 0.3 K/mm3 (0.0-0.4) 07/28/20 04:30 Baso # (Auto) 0.1 K/mm3 (0.0-0.1) 07/28/20 04:30 Add Manual Diff Complete 07/13/20 04:53 Total Counted 100 07/13/20 04:53 Seg Neutrophils % 79.1 % (40.0-70.0) H 07/28/20 04:30 Seg Neuts % (Manual) 84.0 % (40.0-70.0) H 07/13/20 04:53 Band Neutrophils % 1.0 % 07/13/20 04:53 Lymphocytes % (Manual) 7.0 % (13.4-35.0) L 07/13/20 04:53 Reactive Lymphs % (Man) 0 % 07/13/20 04:53 Monocytes % (Manual) 5.0 % (0.0-7.3) 07/13/20 04:53 Eosinophils % (Manual) 1.0 % (0.0-4.3) 07/13/20 04:53 Basophils % (Manual) 0 % (0.0-1.8) 07/13/20 04:53 Metamyelocytes % 2.0 % 07/13/20 04:53 Myelocytes % 0 % 07/13/20 04:53 Promyelocytes % 0 % 07/13/20 04:53 Blast Cells % 0 % 07/13/20 04:53 Nucleated RBC % Not Reportable 07/13/20 04:53 Seg Neutrophils # 6.4 K/mm3 (1.8-7.7) 07/28/20 04:30 Seg Neutrophils # Man 7.1 K/mm3 (1.8-7.7) 07/13/20 04:53 Band Neutrophils # 0.1 K/mm3 07/13/20 04:53 Lymphocytes # (Manual) 0.6 K/mm3 (1.2-5.4) L 07/13/20 04:53 Abs React Lymphs (Man) 0.0 K/mm3 07/13/20 04:53 Monocytes # (Manual) 0.4 K/mm3 (0.0-0.8) 07/13/20 04:53 Eosinophils # (Manual) 0.1 K/mm3 (0.0-0.4) 07/13/20 04:53 Basophils # (Manual) 0.0 K/mm3 (0.0-0.1) 07/13/20 04:53 Metamyelocytes # 0.2 K/mm3 07/13/20 04:53 Myelocytes # 0.0 K/mm3 07/13/20 04:53 Promyelocytes # 0.0 K/mm3 07/13/20 04:53 Blast Cells # 0.0 K/mm3 07/13/20 04:53 WBC Morphology Not Reportable 07/13/20 04:53 Hypersegmented Neuts Not Reportable 07/13/20 04:53 Hyposegmented Neuts Not Reportable 07/13/20 04:53 Hypogranular Neuts Not Reportable 07/13/20 04:53 Smudge Cells Not Reportable 07/13/20 04:53 Toxic Granulation Not Reportable 07/13/20 04:53 Toxic Vacuolation Not Reportable 07/13/20 04:53 Dohle Bodies Not Reportable 07/13/20 04:53 Pelger-Huet Anomaly Not Reportable 07/13/20 04:53 Sanjuanita Rods Not Reportable 07/13/20 04:53 Platelet Estimate Consistent w auto 07/13/20 04:53 Clumped Platelets Not Reportable 07/13/20 04:53 Plt Clumps, EDTA Not Reportable 07/13/20 04:53 Large Platelets Not Reportable 07/13/20 04:53 Giant Platelets Not Reportable 07/13/20 04:53 Platelet Satelliting Not Reportable 07/13/20 04:53 Plt Morphology Comment Not Reportable 07/13/20 04:53 RBC Morphology Not Reportable 07/13/20 04:53 Dimorphic RBCs Not Reportable 07/13/20 04:53 Polychromasia Not Reportable 07/13/20 04:53 Hypochromasia Not Reportable 07/13/20 04:53 Poikilocytosis Not Reportable 07/13/20 04:53 Anisocytosis 1+ 07/13/20 04:53 Microcytosis Not Reportable 07/13/20 04:53 Macrocytosis Not Reportable 07/13/20 04:53 Spherocytes Not Reportable 07/13/20 04:53 Pappenheimer Bodies Not Reportable 07/13/20 04:53 Sickle Cells Not Reportable 07/13/20 04:53 Target Cells Not Reportable 07/13/20 04:53 Tear Drop Cells Not Reportable 07/13/20 04:53 Ovalocytes Not Reportable 07/13/20 04:53 Helmet Cells Not Reportable 07/13/20 04:53 [place] Bodies Not Reportable 07/13/20 04:53 [place] Rings Not Reportable 07/13/20 04:53 [place] Cells Not Reportable 07/13/20 04:53 Bite Cells Not Reportable 07/13/20 04:53 Crenated Cell Not Reportable 07/13/20 04:53 Elliptocytes Not Reportable 07/13/20 04:53 Acanthocytes (Spur) Not Reportable 07/13/20 04:53 Rouleaux Not Reportable 07/13/20 04:53 Hemoglobin C Crystals Not Reportable 07/13/20 04:53 Schistocytes Not Reportable 07/13/20 04:53 Malaria parasites Not Reportable 07/13/20 04:53 Kev Bodies Not Reportable 07/13/20 04:53 Hem Pathologist Commnt No 07/13/20 04:53 PT 14.2 Sec. (12.2-14.9) 05/29/20 15:10 INR 1.08 (0.87-1.13) 05/29/20 15:10 APTT 27.2 Sec. (24.2-36.6) 05/29/20 15:10 D-Dimer 2310.15 ng/mlDDU (0-234) H 06/29/20 14:45 Heparin Anti-Xa Level 0.34 U.I./ml (0.3-0.7) 06/19/20 10:46 ABG pH 7.382 (7.320-7.450) 07/18/20 04:24 POC ABG pCO2 44.1 mmHg (32.0-48.0) 07/18/20 04:24 ABG pCO2 47.0 mm Hg 07/05/20 13:05 ABG Oxyhemoglobin 92.6 (94-98) L 06/23/20 12:34 POC ABG pO2 86.8 mmHg (83-108) 07/18/20 04:24 ABG pO2 78.3 mm Hg (80.0-90.0) L 07/05/20 13:05 POC ABG HCO3 25.6 07/18/20 04:24 ABG HCO3 23.4 mmol/L (20.0-26.0) 07/05/20 13:05 ABG O2 Saturation 96.1 % (95.0-99.0) 07/05/20 13:05 ABG O2 Content 0.3 (0.0-44) 07/05/20 13:05 POC ABG Base Excess 0.4 07/18/20 04:24 ABG Base Excess -2.6 mmol/L (-2.0-3.0) L 07/05/20 13:05 ABG Hemoglobin 8.8 (12.0-17.5) L 07/18/20 04:24 ABG Carboxyhemoglobin 1.7 % (0.0-5.0) 07/05/20 13:05 ABG Methemoglobin 0.2 % (0.0-1.5) 07/05/20 13:05 VBG pH 7.152 (7.320-7.420) L* 05/28/20 13:47 ABG Sodium 131.6 mmol/L (136.0-145.0) L 07/18/20 04:24 ABG Potassium 4.9 mmol/L (3.40-4.50) H 07/18/20 04:24 ABG Chloride 104.0 mmol/L (98-107) 07/18/20 04:24 ABG Glucose 131 mg/dL (65-95) H 07/18/20 04:24 Carboxyhemoglobin 0.5 (0.5-1.5) 06/23/20 12:34 Oxyhemoglobin 97.4 % (95.0-99.0) 07/05/20 13:05 FiO2 30.0 07/18/20 04:24 Sodium 135 mmol/L (137-145) L 07/28/20 04:30 Potassium 5.2 mmol/L (3.6-5.0) H 07/28/20 04:30 Chloride 96.8 mmol/L (98-107) L 07/28/20 04:30 Carbon Dioxide 20 mmol/L (22-30) L 07/28/20 04:30 Anion Gap 23 mmol/L 07/28/20 04:30 BUN 107 mg/dL (7-17) H 07/28/20 04:30 Creatinine 2.9 mg/dL (0.6-1.2) H 07/28/20 04:30 Estimated GFR 16 ml/min 07/28/20 04:30 BUN/Creatinine Ratio 37 % 07/28/20 04:30 Glucose 98 mg/dL (65-100) 07/28/20 04:30 POC Glucose 103 (70-105) 07/28/20 05:54 Lactic Acid 0.60 mmol/L (0.7-2.0) L 06/27/20 05:00 Calcium 8.2 mg/dL (8.4-10.2) L 07/28/20 04:30 Ferritin 223.6 ng/mL (10.0-200.0) H 06/29/20 14:45 Magnesium 2.70 mg/dL (1.7-2.3) H 07/28/20 04:30 Lactate Dehydrogenase 367 units/L (91-180) H 06/29/20 14:45 Total Bilirubin 0.20 mg/dL (0.1-1.2) 07/23/20 19:23 AST 35 units/L (5-40) 07/23/20 19:23 ALT 14 units/L (7-56) 07/23/20 19:23 Alkaline Phosphatase 124 units/L (35-129) 07/23/20 19:23 C-Reactive Protein 3.60 mg/dL (0.00-1.30) H 06/29/20 14:45 Total Creatine Kinase 300 units/L (30-135) H 07/01/20 06:01 CK-MB (CK-2) 2.0 ng/mL (0.0-4.0) 07/01/20 06:01 CK-MB (CK-2) Rel Index 0.6 (0-4) 07/01/20 06:01 Troponin T 0.067 ng/mL (0.00-0.029) H 07/01/20 06:01 Total Protein 6.3 g/dL (6.3-8.2) 07/23/20 19: Albumin 2.2 g/dL (3.9-5) L 07/23/20 19: Albumin/Globulin Ratio 0.5 % 07/23/20 19: Triglycerides 142 mg/dL (2-149) 07/01/20 06:01 Cholesterol 137 mg/dL (50-199) 07/01/20 06:01 LDL Cholesterol Direct 62 mg/dL (50-130) 07/01/20 06:01 HDL Cholesterol 61 mg/dL (40-59) H 07/01/20 06:01 Cholesterol/HDL Ratio 2.24 % 07/01/20 06:01 Procalcitonin 0.18 ng/mL (<0.15) 07/14/20 04:55 Arterial Blood Glucose 131 mg/dL (65-95) H 07/18/20 04:24 Arterial Blood Ionized Calcium 5.1 mg/dL (4.6-5.3) 07/18/20 04:24 Urine Color Yellow (Yellow) 06/06/20 04:00 Urine Turbidity Cloudy (Clear) 06/06/20 04:00 Urine pH 5.0 (5.0-7.0) 06/06/20 04:00 Ur Specific [place] 1.012 (1.003-1.030) 06/06/20 04:00 Urine Protein 100 mg/dl mg/dL (Negative) 06/06/20 04:00 Urine Glucose (UA) 50 mg/dL (Negative) 06/06/20 04:00 Urine Ketones Neg mg/dL (Negative) 06/06/20 04:00 Urine Blood Sm (Negative) 06/06/20 04:00 Urine Nitrite Neg (Negative) 06/06/20 04:00 Urine Bilirubin Neg (Negative) 06/06/20 04:00 Urine Urobilinogen < 2.0 mg/dL (<2.0) 06/06/20 04:00 Ur Leukocyte Esterase Neg (Negative) 06/06/20 04:00 Urine WBC (Auto) 15.0 /HPF (0.0-6.0) H 06/06/20 04:00 Urine RBC (Auto) 23.0 /HPF (0.0-6.0) 06/06/20 04:00 U Epithel Cells (Auto) 8.0 /HPF (0-13.0) 06/06/20 04:00 Urine Bacteria (Auto) 2+ /HPF (Negative) 06/06/20 04:00 Amorphous Crystals 1+ 06/06/20 04:00 Hyaline Casts 16 /LPF 06/06/20 04:00 Urine Mucus 2+ /HPF 06/06/20 04:00 Urine Yeast (Budding) 2+ /HPF 06/03/20 Unknown Urine Creatinine 33.3 mg/dL (0.1-20.0) H 07/06/20 13:20 Urine Sodium 21 mmol/L 07/06/20 13:20 Urine Total Protein 196 mg/dL (5-11.8) H 06/06/20 04:00 Nasal Screen MRSA (PCR) Negative (Negative) 06/29/20 08:30 Phenytoin 9.4 ug/mL (10.0-20.0) L 07/24/20 04:29 Coronavirus (PCR) Positive (Negative) A 07/14/20 08:04 Blood Type A POSITIVE 07/05/20 02:30 Antibody Screen Negative 07/05/20 02:30 Crossmatch See Detail 07/05/20 02:30 - Diagnostic Impressions Diagnostic Impressions: Echocardiogram Limited Views 05/29/20 13:52 Transthoracic Echocardiogram Indication: Pulm Embolus BP: 169/76 HR: 85 Conclusions *Limited study for RV size post cardiopulmonar arrest. *RV is only slightly dilated, no significant difference from prior echo 05/13/2020. *Global left ventricular systolic function is at the lower limits of normal. *The estimated ejection fraction is 45-50%. *Mild to moderate concentric left ventricular hypertrophy is observed. *The left and right atria are both mild to moderately dilated. Findings Left Ventricle: The left ventricular chamber size is mildly dilated. Mild to moderate concentric left ventricular hypertrophy is observed. Global left ventricular systolic function is at the lower limits of normal. The estimated ejection fraction is 45-50%. Left Atrium: The left atrium is mild to moderately dilated. Right Ventricle: The right ventricle is slightly dilated. Right Atrium: The right atrium is mild to moderately dilated. Aortic Valve: The aortic valve leaflets are moderately thickened. Mitral Valve: There is mitral annular calcification. The mitral valve leaflets are moderately thickened. Tricuspid Valve: The tricuspid valve leaflets are mildly thickened. Pericardium: A trivial pericardial effusion is visualized. NDUM: 05/29/20 1808 Amended Report Transthoracic Echocardiogram Indication: Pulm Embolus BP: 169/76 HR: 85 Conclusions *Limited study for RV size post cardiopulmonary arrest. *RV is only slightly dilated, no significant difference from prior echo 05/13/2020. *Global left ventricular systolic function is at the lower limits of normal. *The estimated ejection fraction is 45-50%. *Mild to moderate concentric left ventricular hypertrophy is observed. *The left and right atria are both mild to moderately dilated. Findings Left Ventricle: The left ventricular chamber size is mildly dilated. Mild to moderate concentric left ventricular hypertrophy is observed. Global left ventricular systolic function is at the lower limits of normal. The estimated ejection fraction is 45-50%. Left Atrium: The left atrium is mild to moderately dilated. Right Ventricle: The right ventricle is slightly dilated. Right Atrium: The right atrium is mild to moderately dilated. Aortic Valve: The aortic valve leaflets are moderately thickened. Mitral Valve: There is mitral annular calcification. The mitral valve leaflets are moderately thickened. Tricuspid Valve: The tricuspid valve leaflets are mildly thickened. Pericardium: A trivial pericardial effusion is visualized. Helm/IV: Voiding Method Indwelling Catheter IV Catheter Type [Left Forearm INT / Saline Lock ] IV Catheter Type [Left Wrist] INT / Saline Lock IV Catheter Type [Left Upper Peripheral IV arm] IV Catheter Type [Right CVL Internal Jugular] IV Catheter Type [Right Hand] INT / Saline Lock IV Catheter Type [Right Wrist] Not found on patient IV Catheter Type [Left Hand] INT / Saline Lock IV Catheter Type [Left INT / Saline Lock Antecubital] IV Catheter Type [Right Peripheral IV Forearm] IV Catheter Type [Left Leg] Intra-osseous Active Medications - Current Medications Current Medications: Generic Name Dose Route Start Last Admin Trade Name Freq PRN Reason Stop Dose Admin Acetaminophen 650 mg 06/09/20 10:57 06/29/20 21:18 Tylenol FEEDTUBE 650 mg Q6H PRN Administration Fever >101 Amlodipine Besylate 10 mg 06/02/20 11:00 07/28/20 09:42 Amlodipine PO 10 mg DAILY NELSON Administration Lipase/Protease/Amylase 1 each 05/29/20 13:39 07/07/20 10:[address] 10,500 Unit FEEDTUBE 1 each PRN PRN Administration For Clogged Feeding Tube Carvedilol 25 mg 07/20/20 11:00 07/28/20 10:31 Coreg PO 25 mg Q12HR NELSON Administration Clonidine HCl 0.1 mg 07/26/20 15:00 07/28/20 06:44 Catapres PO 0.1 mg Q8H NELSON Administration Glycopyrrolate 2 mg 06/09/20 14:00 07/28/20 13:30 Glycopyrrolate PO 2 mg TID NELSON Administration Heparin Sodium (Porcine) 5,000 unit 06/30/20 14:00 07/28/20 13:30 Heparin SUB-Q 5,000 unit Q8HR NELSON Administration Hydralazine HCl 100 mg 07/14/20 14:00 07/28/20 08:45 Apresoline PO 100 mg TID NELSON Administration Hydrophilic Ointment 1 applic 05/28/20 13:49 Vaseline Lip Therapy TP Q2HR PRN Dry Lips Norepinephrine 4 mg in 250 mls @ 7.5 mls/hr 07/23/20 20:00 07/24/20 07:15 Levophed Drip 4 Mg/Ns 250 Ml IV 0 mcg/min TITR NELSON 0 mls/hr Titration Protocol 2 MCG/MIN Dopamine HCl/Dextrose 800 mg in 250 mls @ 4.613 mls/hr 07/24/20 11:30 Intropin Drip 800 Mg/D5w 250 Ml IV TITR NELSON Protocol 2 MCG/KG/MIN Insulin Glargine 10 units 06/08/20 22:00 07/27/20 21:55 Lantus SUB-Q 10 units QHS NELSON Administration Insulin Human Lispro 0 unit 05/29/20 18:00 07/28/20 12:57 Humalog SUB-Q Not Given Q6H [facility] Protocol Labetalol HCl 20 mg 06/03/20 09:00 07/21/20 05:56 Labetalol IV 20 mg Q4H PRN Administration HYPERTENSION Lansoprazole 30 mg 06/05/20 22:00 07/28/20 09:44 Prevacid Solutab FEEDTUBE 30 mg BID NELSON Administration Levetiracetam 1,000 mg 07/21/20 22:00 07/28/20 09:43 Keppra PO 1,000 mg BID NELSON Administration Minoxidil 5 mg 07/21/20 10:00 07/28/20 09:45 Loniten PO 5 mg BID NELSON Administration Multi-Ingred Cream/Lotion/Oil/Oint 1 applic 05/28/20 13:49 Artificial Tears Ophth Oint OU Q4HR PRN Dry Eye(s) Ondansetron HCl 4 mg 06/02/20 09:00 06/09/20 16:48 Zofran IV 4 mg Q8H PRN Administration Nausea And Vomiting Phenytoin 150 mg 07/28/20 14:00 07/28/20 13:28 Dilantin FEEDTUBE 150 mg Q8HR NELSON Administration Senna 17.6 mg 06/03/20 10:00 07/28/20 09:44 Senokot FEEDTUBE 17.6 mg BID NELSON Administration Simple Syrup 15 ml 05/29/20 13:39 Simple Syrup FEEDTUBE PRN PRN Hypoglycemia Simple Syrup 30 ml 05/29/20 13:39 Simple Syrup FEEDTUBE PRN PRN Hypoglycemia Sodium Bicarbonate 325 mg 05/29/20 13:39 07/07/20 10:36 Sodium Bicarbonate FEEDTUBE 325 mg PRN PRN Administration For Clogged Feeding Tube Sodium Chloride 10 ml 05/28/20 22:00 07/28/20 09:47 Sodium Chloride Flush Syringe 10 Ml IV 10 ml BID NELSON Administration Sodium Chloride 10 ml 05/28/20 19:08 06/16/20 17:50 Sodium Chloride Flush Syringe 10 Ml IV 10 ml PRN PRN Administration LINE FLUSH Nutrition/Malnutrition Assess - Dietary Evaluation Nutrition/Malnutrition Findings: Nutrition Notes Start: 05/29/20 11:45 Freq: Status: Active Protocol: Document 07/27/20 08:59 LP (Rec: 07/27/20 09:05 LP [id number]) Nutrition Notes Initial or Follow up Reassessment Current Diagnosis Acute Kidney Injury,Diabetes, Heart Failure,Respiratory Failure Other Pertinent Diagnosis COVID-19 (+), Pulmonary edema, dysphagia Current Diet Nepro at 40 ml/hr Labs/Tests Na 135 K 3.5 BUN 103 Cr 2.6 BG 113 Pertinent Medications Reviewed Height 5 ft 6 in Weight 123 kg [place] Body Weight (kg) 59.09 BMI 43.7 Weight Status Morbidly Obese Subjective/Other Information Pt continues on vent. Pt tolerating TF at goal rate. Pt already on low K TF. Percent of energy/protein needs met: 100%/80% Protein calculated based on 0. 8g/kg ABW Burn Absent Trauma Absent Current % PO Negligible Minimum of two criteria No physical signs of malnutrition Fluid Accumulation Mild (non-severe) #1 Nutrition Diagnosis Inadequate oral intake Diagnosis Progress(for reassessment Continues documentation) Is patient on ventilator? Yes Is Patient Ambulatory and/or Out of Bed No REE-([facility]-confined to bed) 2172.576 Kcal/Kg value to use for calculation 14 Approximate Energy Requirements Using 1722 kcal/Kg Calculation Used for Recommendations Kcal/kg Additional Notes Protein needs up to 148g (up to 2.5g/kg IBW) Fluid needs 1ml/kcal Nutrition Intervention Change Diet Order: Continue Nutrition Support: Nepro at 40ml/hr Flush 150ml q4h Kcal 1,728 Protein (gm) 78 Fluid (mL) 697 Goal #1 TF tolerance Goal #2 Meet at least 75% of kcal and protein needs Anticipated Discharge Needs: Unable to determine at this time Follow-Up By: 08/03/20 Additional Comments Follow for stable TF
[2020-07-28] MEDS: INSULIN GLARGINE 100 UNITS/ML SUB-Q SCH (21:54)
[2020-07-29] MEDS: INSULIN LISPRO 100 UNIT/ML VIAL 3 mL SUB-Q SCH ×4 (00:27→18:53)
[2020-07-29] MEDS: HEPARIN 5,000 UNIT/1 ML VIAL SUB-Q SCH ×3 (06:30→22:13)
[2020-07-29] MEDS: cloNIDine 0.1 MG TAB PO SCH ×3 (06:30→22:01)
[2020-07-29] MEDS: PHENYTOIN 100 MG/4 ML ORAL.LIQD FEEDTUBE SCH ×2 (06:30→22:12)
--- NOTE | 2020-07-29 07:44 | Progress Note ---
Assessment and Plan Assessment and plan: 64 YO Female with a medical history of HTN, Diastolic CHF, Pulmonary HTN, DM, Obesity Hypoventilation Syndrome presents to ED for evaluation of shortness of breath. As per staff, the EMS was notified for difficulty breathing. Upon arrival to the patient's home the patient was found to be in distress and was subsequently transported to [facility] for further evaluation and care. In route to [facility] the patient developed cardiac arrest and was treated in accordance with ACLS protocol with return of ROSC. Patient was seen and evaluated in the emergency department and was intubated and placed on ventilatory support. Patient admitted to ICU. Critical care team consulted in ED. She was found to have COVID-19 infection and was started on steroids and remdesivir. ID was consulted. Cardiology was consulted for her systolic heart failure and cardiac arrest. Patient completed treatment for COVID-19, then develop superimposed bacterial pneumonia with Klebsiella. She is now extubated, 06/12/2020 but remains confused and requiring high flow O2 and intermittent BiPAP. Patient had another cardiac arrest reintubated 06/26/2020, currently in ICU vent dependent, unable to do trach and PEG due to persistent COVID-19 positive state, as well as anoxic brain injury, unable to get MRI , neurology following. Assessment and plan: 05/28/2020 COVID-19 test positive 06/29/2020 COVID-19 test positive 07/14/2020 COVID-19 test positive --Acute hypoxemic respiratory failure; vent dependent intubated on admission, extubated on 06/12/20 then placed on high flow o2 patient developed another respiratory arrest on 06/26 - reintubated Patient not tolerating weaning parameters CC following, Surgery evaluated the patient for trach and PEG COVID-19 test positive x3, trach and PEG pending neuro evaluation to evaluate severity of anoxic brain injury -- Hypertension; well controlled Increase hydralazine dose to 75 mg 3 times a day Continue amlodipine, coreg, clonidine and hydralazine And minoxidil, closely monitor blood pressures PRN labetalol --s/p cardiopulmonary arrest on admission, 06/26 and 07/01, s/p CPR per ACLS protocol, refer to code sheet --Possible anoxic brain injury, neurology consulted, neuro requested MRI brain, EEG MRI brain could not be done due to body habitus, EEG not done --Seizures seizure precautions; continue Keppra, follow EEG neurology following --Acute renal failure : creatinine 2.4-2.5-2.9-1.7 --Acute renal failure : creatinine 2.4-2.5-2.9-1.7 Vasomotor nephropathy, gentle hydration Avoid nephrotoxins, monitor renal function Reconsult nephrology if needed --Rectal bleeding; resolved --Acute blood loss anemia; total 3 units PRBC transfused Closely monitor H&H, GI following, no plans of endoscopy --Severe sepsis; completed antibiotics per ID persistently positive for COVID-19 and Klebsiella pneumoniae --COVID-19 b/l PNA Completed remdesivir on 06/02 Completed dexamethasone - Last dose 06/07 COVID 19 test positive x 3 during this admission --Superficial left cephalic vein DVT/elevated D-dimers[COVID 19] Patient initially started on heparin drip from 05/29/20 D-dimers improved [id number] treated with Eliquis 5 mg twice a day for 1 week[per ID] stop date 06/26/2020 -- Acute toxic metabolic encephalopathy, POA likely from sepsis and s/p cardiac arrest with possible anoxic injury -- Acute renal failure: likely ATN avoid nephrotoxins, reconsult nephrology if no improvement --Klebsiella pneumonia: ID evaluated completed second round of 5 days of cefepime on 07/04/2020 --Acute on chronic systolic heart failure Cardiology following. Ef 45% -- Coffee ground emesis -Stress ulcers Possible stress ulcers, On PPI H/H again dropped - transfuse GI evaluated --Transaminitis. Etiology likely from COVID-19. cont to monitor --Hyperkalemia; calcium gluconate, Kayexalate, monitor electrolytes --Shock; fluid bolus, Levophed per protocol Patient critically ill poor prognosis Currently patient is hypertensive -- DVT prophylaxis Eliquis, SCD to bilateral lower extremities while in bed -- Advance care planning Patient is critically ill with multiple medical problems Poor prognosis, family updated and requesting full code The high probability of a clinically significant, sudden or life threatening deterioration of the [CVS, renal, respiratory, SENIOR SYSTEMS ENGINEER] system(s) required my full and direct attention, intervention and personal management. The aggregate critical care time was [35] minutes. This time is in addition to time spent performing reported procedures but includes the following: [x] Data Review and interpretation [x] Patient assessment and monitoring of vital signs [x] Documentation [x] Medication orders and management 07/11/2020. Patient currently on mechanical ventilation AC/PRVC with rate of 12, tidal volume 450, FiO2 30% and PEEP of 6 07/12/2020. Patient placed on CPAP with pressure support of 10 and tolerating well. Continue PSB trials as tolerated. 07/13/2020. Patient currently with AC mode rate 12, tidal volume 450, FiO2 30% and PEEP of 6. Surgery has been consulted for trach and PEG placement. Recall nephrology for renal insufficiency. 07/14/20; surgery evaluated for trach and PEG , pending call with test which is is positive today COVID-19 test positive x3 since admission 07/16; trach and PEG pending neuro evaluation 07/17; vent dependent, trach PEG pending neuro evaluation, pending MRI EEG study[already ordered] 07/18; unable to do MRI, due to body habitus, morbid obesity, radiology consult Patient critically ill very poor prognosis 07/19; remains intubated on vent, clinically no change 07/20; unable to wean, needs trach and PEG, need MRI , unable to do due to body habitus 07/21; clinically no change, remains intubated on ventilatory support 07/22; I recommend family meeting, to discuss the goals of treatment, discussed with case management 07/23; patient's blood pressures in the lower range, will hold antihypertensives, fluid bolus, if no improvement Levophed per protocol 07/24: Patient remains critically ill, unable to obtain MRI at this facility and unstable for transfer, Will reconsult Nephrology as creatinine now worse, with worsening Hypotension and Hyperkalemia- Overnight the patient required pressors Secondary to Hypotension, Will place PICC line. Will give kayxalate, continue to hold all BP meds. Hyponatermia improving. 07/24; patient remains to critically ill, nephrology consult appreciated, creatinine is worsening. Hypotension resolved with. Still patient is hypernatremic 07/26; patient is hypertensive and her blood pressure medications were resumed and as needed medications also started. Patient is being followed by nephrology for hyponatremia and AVANI. Patient has anemia. We will check labs in the morning. 07/27; patient is still intubated and on mechanical ventilation. Followed by pulmonary critical care. Nephrology is considering to dialyze the patient after discussing with the family. 07/28; patient is intubated and on mechanical ventilation, patient is nonresponsive without pressors. Creatinine is trending up and nephrology is considering to dialysis. I called her son Toño at [phone] and discussed about the prognosis of the patient and I gave the option of hospice care/withdraw care and he said he is going to talk to his sister and will get back to me. 07/29/2020;patient is intubated and on mechanical ventilation, patient is nonresponsive without pressors. Creatinine is trending up and nephrology is considering to dialysis. I called her son Toño on 07/28 at [phone] and discussed about the prognosis of the patient and I gave the option of hospice care/withdraw care and he said he is going to talk to his sister and will get back to me. Nephrology discussed with the son this morning and the son said he want aggressive management and she is going to be started on dialysis. History Interval history: Patient was seen and evaluated this morning Patient is intubated and on mechanical ventilation Not responding Hospitalist Physical - Physical exam Narrative exam: Intubated and on mechanical ventilation The patient is morbidly obese. Vital signs as documented. Head exam is unremarkable. No scleral icterus . Neck is without jugular venous distension, thyromegaly, or carotid bruits. Lungs are clear to auscultation. Cardiac exam reveals regular rate and Rhythm. Abdominal exam reveals normal bowel sounds, nontender, no organomegaly. Extremities are nonedematous and both femoral and pedal pulses are normal. SENIOR SYSTEMS ENGINEER: Intubated. - Constitutional Vitals: Temp Pulse Resp BP Pulse Ox 98.1 F 62 17 159/46 96 07/29/20 04:00 07/29/20 06:30 07/29/20 06:00 07/29/20 06:30 07/29/20 06:00 General appearance: Present: no acute distress, well-nourished, obese (Morbidly obese), other (Intubated on ventilatory support) HEART Score - HEART Score Troponin: Troponin T 0.067 ng/mL (0.00-0.029) H 07/01/20 06:01 Results - Labs CBC & Chem 7: 07/28/20 04:30 07/28/20 04:30 Labs: Laboratory Last Values WBC 8.1 K/mm3 (4.5-11.0) 07/28/20 04:30 RBC 2.50 M/mm3 (3.65-5.03) L 07/28/20 04:30 Hgb 7.3 gm/dl (10.1-14.3) L 07/28/20 04:30 Hct 22.2 % (30.3-42.9) L 07/28/20 04:30 MCV 89 fl (79-97) 07/28/20 04:30 MCH 29 pg (28-32) 07/28/20 04:30 MCHC 33 % (30-34) 07/28/20 04:30 RDW 17.3 % (13.2-15.2) H 07/28/20 04:30 Plt Count 433 K/mm3 (140-440) 07/28/20 04:30 Lymph % (Auto) 8.7 % (13.4-35.0) L 07/28/20 04:30 [place] % (Auto) 8.3 % (0.0-7.3) H 07/28/20 04:30 Eos % (Auto) 3.3 % (0.0-4.3) 07/28/20 04:30 Baso % (Auto) 0.6 % (0.0-1.8) 07/28/20 04:30 Lymph # (Auto) 0.7 K/mm3 (1.2-5.4) L 07/28/20 04:30 [place] # (Auto) 0.7 K/mm3 (0.0-0.8) 07/28/20 04:30 Eos # (Auto) 0.3 K/mm3 (0.0-0.4) 07/28/20 04:30 Baso # (Auto) 0.1 K/mm3 (0.0-0.1) 07/28/20 04:30 Add Manual Diff Complete 07/13/20 04:53 Total Counted 100 07/13/20 04:53 Seg Neutrophils % 79.1 % (40.0-70.0) H 07/28/20 04:30 Seg Neuts % (Manual) 84.0 % (40.0-70.0) H 07/13/20 04:53 Band Neutrophils % 1.0 % 07/13/20 04:53 Lymphocytes % (Manual) 7.0 % (13.4-35.0) L 07/13/20 04:53 Reactive Lymphs % (Man) 0 % 07/13/20 04:53 Monocytes % (Manual) 5.0 % (0.0-7.3) 07/13/20 04:53 Eosinophils % (Manual) 1.0 % (0.0-4.3) 07/13/20 04:53 Basophils % (Manual) 0 % (0.0-1.8) 07/13/20 04:53 Metamyelocytes % 2.0 % 07/13/20 04:53 Myelocytes % 0 % 07/13/20 04:53 Promyelocytes % 0 % 07/13/20 04:53 Blast Cells % 0 % 07/13/20 04:53 Nucleated RBC % Not Reportable 07/13/20 04:53 Seg Neutrophils # 6.4 K/mm3 (1.8-7.7) 07/28/20 04:30 Seg Neutrophils # Man 7.1 K/mm3 (1.8-7.7) 07/13/20 04:53 Band Neutrophils # 0.1 K/mm3 07/13/20 04:53 Lymphocytes # (Manual) 0.6 K/mm3 (1.2-5.4) L 07/13/20 04:53 Abs React Lymphs (Man) 0.0 K/mm3 07/13/20 04:53 Monocytes # (Manual) 0.4 K/mm3 (0.0-0.8) 07/13/20 04:53 Eosinophils # (Manual) 0.1 K/mm3 (0.0-0.4) 07/13/20 04:53 Basophils # (Manual) 0.0 K/mm3 (0.0-0.1) 07/13/20 04:53 Metamyelocytes # 0.2 K/mm3 07/13/20 04:53 Myelocytes # 0.0 K/mm3 07/13/20 04:53 Promyelocytes # 0.0 K/mm3 07/13/20 04:53 Blast Cells # 0.0 K/mm3 07/13/20 04:53 WBC Morphology Not Reportable 07/13/20 04:53 Hypersegmented Neuts Not Reportable 07/13/20 04:53 Hyposegmented Neuts Not Reportable 07/13/20 04:53 Hypogranular Neuts Not Reportable 07/13/20 04:53 Smudge Cells Not Reportable 07/13/20 04:53 Toxic Granulation Not Reportable 07/13/20 04:53 Toxic Vacuolation Not Reportable 07/13/20 04:53 Dohle Bodies Not Reportable 07/13/20 04:53 Pelger-Huet Anomaly Not Reportable 07/13/20 04:53 Sanjuanita Rods Not Reportable 07/13/20 04:53 Platelet Estimate Consistent w auto 07/13/20 04:53 Clumped Platelets Not Reportable 07/13/20 04:53 Plt Clumps, EDTA Not Reportable 07/13/20 04:53 Large Platelets Not Reportable 07/13/20 04:53 Giant Platelets Not Reportable 07/13/20 04:53 Platelet Satelliting Not Reportable 07/13/20 04:53 Plt Morphology Comment Not Reportable 07/13/20 04:53 RBC Morphology Not Reportable 07/13/20 04:53 Dimorphic RBCs Not Reportable 07/13/20 04:53 Polychromasia Not Reportable 07/13/20 04:53 Hypochromasia Not Reportable 07/13/20 04:53 Poikilocytosis Not Reportable 07/13/20 04:53 Anisocytosis 1+ 07/13/20 04:53 Microcytosis Not Reportable 07/13/20 04:53 Macrocytosis Not Reportable 07/13/20 04:53 Spherocytes Not Reportable 07/13/20 04:53 Pappenheimer Bodies Not Reportable 07/13/20 04:53 Sickle Cells Not Reportable 07/13/20 04:53 Target Cells Not Reportable 07/13/20 04:53 Tear Drop Cells Not Reportable 07/13/20 04:53 Ovalocytes Not Reportable 07/13/20 04:53 Helmet Cells Not Reportable 07/13/20 04:53 Jones-Leighton Bodies Not Reportable 07/13/20 04:53 Redig Rings Not Reportable 07/13/20 04:53 Julia Cells Not Reportable 07/13/20 04:53 Bite Cells Not Reportable 07/13/20 04:53 Crenated Cell Not Reportable 07/13/20 04:53 Elliptocytes Not Reportable 07/13/20 04:53 Acanthocytes (Spur) Not Reportable 07/13/20 04:53 Rouleaux Not Reportable 07/13/20 04:53 Hemoglobin C Crystals Not Reportable 07/13/20 04:53 Schistocytes Not Reportable 07/13/20 04:53 Malaria parasites Not Reportable 07/13/20 04:53 Kev Bodies Not Reportable 07/13/20 04:53 Hem Pathologist Commnt No 07/13/20 04:53 PT 14.2 Sec. (12.2-14.9) 05/29/20 15:10 INR 1.08 (0.87-1.13) 05/29/20 15:10 APTT 27.2 Sec. (24.2-36.6) 05/29/20 15:10 D-Dimer 2310.15 ng/mlDDU (0-234) H 06/29/20 14:45 Heparin Anti-Xa Level 0.34 U.I./ml (0.3-0.7) 06/19/20 10:46 ABG pH 7.382 (7.320-7.450) 07/18/20 04:24 POC ABG pCO2 44.1 mmHg (32.0-48.0) 07/18/20 04:24 ABG pCO2 47.0 mm Hg 07/05/20 13:05 ABG Oxyhemoglobin 92.6 (94-98) L 06/23/20 12:34 POC ABG pO2 86.8 mmHg (83-108) 07/18/20 04:24 ABG pO2 78.3 mm Hg (80.0-90.0) L 07/05/20 13:05 POC ABG HCO3 25.6 07/18/20 04:24 ABG HCO3 23.4 mmol/L (20.0-26.0) 07/05/20 13:05 ABG O2 Saturation 96.1 % (95.0-99.0) 07/05/20 13:05 ABG O2 Content 0.3 (0.0-44) 07/05/20 13:05 POC ABG Base Excess 0.4 07/18/20 04:24 ABG Base Excess -2.6 mmol/L (-2.0-3.0) L 07/05/20 13:05 ABG Hemoglobin 8.8 (12.0-17.5) L 07/18/20 04:24 ABG Carboxyhemoglobin 1.7 % (0.0-5.0) 07/05/20 13:05 ABG Methemoglobin 0.2 % (0.0-1.5) 07/05/20 13:05 VBG pH 7.152 (7.320-7.420) L* 05/28/20 13:47 ABG Sodium 131.6 mmol/L (136.0-145.0) L 07/18/20 04:24 ABG Potassium 4.9 mmol/L (3.40-4.50) H 07/18/20 04:24 ABG Chloride 104.0 mmol/L (98-107) 07/18/20 04:24 ABG Glucose 131 mg/dL (65-95) H 07/18/20 04:24 Carboxyhemoglobin 0.5 (0.5-1.5) 06/23/20 12:34 Oxyhemoglobin 97.4 % (95.0-99.0) 07/05/20 13:05 FiO2 30.0 07/18/20 04:24 Sodium 135 mmol/L (137-145) L 07/28/20 04:30 Potassium 5.2 mmol/L (3.6-5.0) H 07/28/20 04:30 Chloride 96.8 mmol/L (98-107) L 07/28/20 04:30 Carbon Dioxide 20 mmol/L (22-30) L 07/28/20 04:30 Anion Gap 23 mmol/L 07/28/20 04:30 BUN 107 mg/dL (7-17) H 07/28/20 04:30 Creatinine 2.9 mg/dL (0.6-1.2) H 07/28/20 04:30 Estimated GFR 16 ml/min 07/28/20 04:30 BUN/Creatinine Ratio 37 % 07/28/20 04:30 Glucose 98 mg/dL (65-100) 07/28/20 04:30 POC Glucose 179 mg/dL (70-105) H 07/29/20 06:45 Lactic Acid 0.60 mmol/L (0.7-2.0) L 06/27/20 05:00 Calcium 8.2 mg/dL (8.4-10.2) L 07/28/20 04:30 Ferritin 223.6 ng/mL (10.0-200.0) H 06/29/20 14:45 Magnesium 2.70 mg/dL (1.7-2.3) H 07/28/20 04:30 Lactate Dehydrogenase 367 units/L (91-180) H 06/29/20 14:45 Total Bilirubin 0.20 mg/dL (0.1-1.2) 07/23/20 19: AST 35 units/L (5-40) 07/23/20 19:23 ALT 14 units/L (7-56) 07/23/20 19:23 Alkaline Phosphatase 124 units/L (35-129) 07/23/20 19: C-Reactive Protein 3.60 mg/dL (0.00-1.30) H 06/29/20 14:45 Total Creatine Kinase 300 units/L (30-135) H 07/01/20 06:01 CK-MB (CK-2) 2.0 ng/mL (0.0-4.0) 07/01/20 06:01 CK-MB (CK-2) Rel Index 0.6 (0-4) 07/01/20 06:01 Troponin T 0.067 ng/mL (0.00-0.029) H 07/01/20 06:01 Total Protein 6.3 g/dL (6.3-8.2) 07/23/20 19: Albumin 2.2 g/dL (3.9-5) L 07/23/20 19: Albumin/Globulin Ratio 0.5 % 07/23/20 19:23 Triglycerides 142 mg/dL (2-149) 07/01/20 06:01 Cholesterol 137 mg/dL (50-199) 07/01/20 06:01 LDL Cholesterol Direct 62 mg/dL (50-130) 07/01/20 06:01 HDL Cholesterol 61 mg/dL (40-59) H 07/01/20 06:01 Cholesterol/HDL Ratio 2.24 % 07/01/20 06:01 Procalcitonin 0.18 ng/mL (<0.15) 07/14/20 04:55 Arterial Blood Glucose 131 mg/dL (65-95) H 07/18/20 04:24 Arterial Blood Ionized Calcium 5.1 mg/dL (4.6-5.3) 07/18/20 04:24 Urine Color Yellow (Yellow) 06/06/20 04:00 Urine Turbidity Cloudy (Clear) 06/06/20 04:00 Urine pH 5.0 (5.0-7.0) 06/06/20 04:00 Ur Specific Notus 1.012 (1.003-1.030) 06/06/20 04:00 Urine Protein 100 mg/dl mg/dL (Negative) 06/06/20 04:00 Urine Glucose (UA) 50 mg/dL (Negative) 06/06/20 04:00 Urine Ketones Neg mg/dL (Negative) 06/06/20 04:00 Urine Blood Sm (Negative) 06/06/20 04:00 Urine Nitrite Neg (Negative) 06/06/20 04:00 Urine Bilirubin Neg (Negative) 06/06/20 04:00 Urine Urobilinogen < 2.0 mg/dL (<2.0) 06/06/20 04:00 Ur Leukocyte Esterase Neg (Negative) 06/06/20 04:00 Urine WBC (Auto) 15.0 /HPF (0.0-6.0) H 06/06/20 04:00 Urine RBC (Auto) 23.0 /HPF (0.0-6.0) 06/06/20 04:00 U Epithel Cells (Auto) 8.0 /HPF (0-13.0) 06/06/20 04:00 Urine Bacteria (Auto) 2+ /HPF (Negative) 06/06/20 04:00 Amorphous Crystals 1+ 06/06/20 04:00 Hyaline Casts 16 /LPF 06/06/20 04:00 Urine Mucus 2+ /HPF 06/06/20 04:00 Urine Yeast (Budding) 2+ /HPF 06/03/20 Unknown Urine Creatinine 33.3 mg/dL (0.1-20.0) H 07/06/20 13:20 Urine Sodium 21 mmol/L 07/06/20 13:20 Urine Total Protein 196 mg/dL (5-11.8) H 06/06/20 04:00 Nasal Screen MRSA (PCR) Negative (Negative) 06/29/20 08:30 Phenytoin 9.4 ug/mL (10.0-20.0) L 07/24/20 04:29 Coronavirus (PCR) Positive (Negative) A 07/14/20 08:04 Blood Type A POSITIVE 07/05/20 02:30 Antibody Screen Negative 07/05/20 02:30 Crossmatch See Detail 07/05/20 02:30 - Diagnostic Impressions Diagnostic Impressions: Echocardiogram Limited Views 05/29/20 13:52 Transthoracic Echocardiogram Indication: Pulm Embolus BP: 169/76 HR: 85 Conclusions *Limited study for RV size post cardiopulmonar arrest. *RV is only slightly dilated, no significant difference from prior echo 05/13/2020. *Global left ventricular systolic function is at the lower limits of normal. *The estimated ejection fraction is 45-50%. *Mild to moderate concentric left ventricular hypertrophy is observed. *The left and right atria are both mild to moderately dilated. Findings Left Ventricle: The left ventricular chamber size is mildly dilated. Mild to moderate concentric left ventricular hypertrophy is observed. Global left ventricular systolic function is at the lower limits of normal. The estimated ejection fraction is 45-50%. Left Atrium: The left atrium is mild to moderately dilated. Right Ventricle: The right ventricle is slightly dilated. Right Atrium: The right atrium is mild to moderately dilated. Aortic Valve: The aortic valve leaflets are moderately thickened. Mitral Valve: There is mitral annular calcification. The mitral valve leaflets are moderately thickened. Tricuspid Valve: The tricuspid valve leaflets are mildly thickened. Pericardium: A trivial pericardial effusion is visualized. NDUM: 05/29/20 1808 Amended Report Transthoracic Echocardiogram Indication: Pulm Embolus BP: 169/76 HR: 85 Conclusions *Limited study for RV size post cardiopulmonary arrest. *RV is only slightly dilated, no significant difference from prior echo 05/13/2020. *Global left ventricular systolic function is at the lower limits of normal. *The estimated ejection fraction is 45-50%. *Mild to moderate concentric left ventricular hypertrophy is observed. *The left and right atria are both mild to moderately dilated. Findings Left Ventricle: The left ventricular chamber size is mildly dilated. Mild to moderate concentric left ventricular hypertrophy is observed. Global left ventricular systolic function is at the lower limits of normal. The estimated ejection fraction is 45-50%. Left Atrium: The left atrium is mild to moderately dilated. Right Ventricle: The right ventricle is slightly dilated. Right Atrium: The right atrium is mild to moderately dilated. Aortic Valve: The aortic valve leaflets are moderately thickened. Mitral Valve: There is mitral annular calcification. The mitral valve leaflets are moderately thickened. Tricuspid Valve: The tricuspid valve leaflets are mildly thickened. Pericardium: A trivial pericardial effusion is visualized. Helm/IV: Voiding Method Indwelling Catheter IV Catheter Type [Left Forearm INT / Saline Lock ] IV Catheter Type [Left Wrist] INT / Saline Lock IV Catheter Type [Left Upper Peripheral IV arm] IV Catheter Type [Right CVL Internal Jugular] IV Catheter Type [Right Hand] INT / Saline Lock IV Catheter Type [Right Wrist] Not found on patient IV Catheter Type [Left Hand] INT / Saline Lock IV Catheter Type [Left INT / Saline Lock Antecubital] IV Catheter Type [Right Peripheral IV Forearm] IV Catheter Type [Left Leg] Intra-osseous Active Medications - Current Medications Current Medications: Generic Name Dose Route Start Last Admin Trade Name Freq PRN Reason Stop Dose Admin Acetaminophen 650 mg 06/09/20 10:57 06/29/20 21:18 Tylenol FEEDTUBE 650 mg Q6H PRN Administration Fever >101 Amlodipine Besylate 10 mg 06/02/20 11:00 07/28/20 09:42 Amlodipine PO 10 mg DAILY NELSON Administration Lipase/Protease/Amylase 1 each 05/29/20 13:39 07/07/20 10:[address] 10,500 Unit FEEDTUBE 1 each PRN PRN Administration For Clogged Feeding Tube Carvedilol 25 mg 07/20/20 11:00 07/28/20 21:07 Coreg PO 25 mg Q12HR NELSON Administration Clonidine HCl 0.1 mg 07/26/20 15:00 07/29/20 06:30 Catapres PO 0.1 mg Q8H NELSON Administration Glycopyrrolate 2 mg 06/09/20 14:00 07/28/20 21:42 Glycopyrrolate PO 2 mg TID NELSON Administration Heparin Sodium (Porcine) 5,000 unit 06/30/20 14:00 07/29/20 06:30 Heparin SUB-Q 5,000 unit Q8HR NELSON Administration Hydralazine HCl 100 mg 07/14/20 14:00 07/28/20 21:42 Apresoline PO 100 mg TID NELSON Administration Hydrophilic Ointment 1 applic 05/28/20 13:49 Vaseline Lip Therapy TP Q2HR PRN Dry Lips Norepinephrine 4 mg in 250 mls @ 7.5 mls/hr 07/23/20 20:00 07/24/20 07:15 Levophed Drip 4 Mg/Ns 250 Ml IV 0 mcg/min TITR NELSON 0 mls/hr Titration Protocol 2 MCG/MIN Dopamine HCl/Dextrose 800 mg in 250 mls @ 4.613 mls/hr 07/24/20 11:30 Intropin Drip 800 Mg/D5w 250 Ml IV TITR NELSON Protocol 2 MCG/KG/MIN Insulin Glargine 10 units 06/08/20 22:00 07/28/20 21:54 Lantus SUB-Q 10 units QHS NELSON Administration Insulin Human Lispro 0 unit 05/29/20 18:00 07/29/20 06:31 Humalog SUB-Q 3 unit Q6H NELSON Administration Protocol Labetalol HCl 20 mg 06/03/20 09:00 07/21/20 05:56 Labetalol IV 20 mg Q4H PRN Administration HYPERTENSION Lansoprazole 30 mg 06/05/20 22:00 07/28/20 21:06 Prevacid Solutab FEEDTUBE 30 mg BID NELSON Administration Levetiracetam 1,000 mg 07/21/20 22:00 07/28/20 21:05 Keppra PO 1,000 mg BID NELSON Administration Minoxidil 5 mg 07/21/20 10:00 07/28/20 21:55 Loniten PO 5 mg BID NELSON Administration Multi-Ingred Cream/Lotion/Oil/Oint 1 applic 05/28/20 13:49 Artificial Tears Ophth Oint OU Q4HR PRN Dry Eye(s) Ondansetron HCl 4 mg 06/02/20 09:00 06/09/20 16:48 Zofran IV 4 mg Q8H PRN Administration Nausea And Vomiting Phenytoin 150 mg 07/28/20 14:00 07/29/20 06:30 Dilantin FEEDTUBE 150 mg Q8HR NELSON Administration Senna 17.6 mg 06/03/20 10:00 07/28/20 21:55 Senokot FEEDTUBE 17.6 mg BID NELSON Administration Simple Syrup 15 ml 05/29/20 13:39 Simple Syrup FEEDTUBE PRN PRN Hypoglycemia Simple Syrup 30 ml 05/29/20 13:39 Simple Syrup FEEDTUBE PRN PRN Hypoglycemia Sodium Bicarbonate 325 mg 05/29/20 13:39 07/07/20 10:36 Sodium Bicarbonate FEEDTUBE 325 mg PRN PRN Administration For Clogged Feeding Tube Sodium Chloride 10 ml 05/28/20 22:00 07/28/20 21:55 Sodium Chloride Flush Syringe 10 Ml IV 10 ml BID NELSON Administration Sodium Chloride 10 ml 05/28/20 19:08 06/16/20 17:50 Sodium Chloride Flush Syringe 10 Ml IV 10 ml PRN PRN Administration LINE FLUSH Nutrition/Malnutrition Assess - Dietary Evaluation Nutrition/Malnutrition Findings: Nutrition Notes Start: 05/29/20 11:45 Freq: Status: Active Protocol: Document 07/27/20 08:59 LP (Rec: 07/27/20 09:05 LP [id number]) Nutrition Notes Initial or Follow up Reassessment Current Diagnosis Acute Kidney Injury,Diabetes, Heart Failure,Respiratory Failure Other Pertinent Diagnosis COVID-19 (+), Pulmonary edema, dysphagia Current Diet Nepro at 40 ml/hr Labs/Tests Na 135 K 3.5 BUN 103 Cr 2.6 BG 113 Pertinent Medications Reviewed Height 5 ft 6 in Weight 123 kg [place] Body Weight (kg) 59.09 BMI 43.7 Weight Status Morbidly Obese Subjective/Other Information Pt continues on vent. Pt tolerating TF at goal rate. Pt already on low K TF. Percent of energy/protein needs met: 100%/80% Protein calculated based on 0. 8g/kg ABW Burn Absent Trauma Absent Current % PO Negligible Minimum of two criteria No physical signs of malnutrition Fluid Accumulation Mild (non-severe) #1 Nutrition Diagnosis Inadequate oral intake Diagnosis Progress(for reassessment Continues documentation) Is patient on ventilator? Yes Is Patient Ambulatory and/or Out of Bed No REE-([facility]-confined to bed) 2172.576 Kcal/Kg value to use for calculation 14 Approximate Energy Requirements Using 1722 kcal/Kg Calculation Used for Recommendations Kcal/kg Additional Notes Protein needs up to 148g (up to 2.5g/kg IBW) Fluid needs 1ml/kcal Nutrition Intervention Change Diet Order: Continue Nutrition Support: Nepro at 40ml/hr Flush 150ml q4h Kcal 1,728 Protein (gm) 78 Fluid (mL) 697 Goal #1 TF tolerance Goal #2 Meet at least 75% of kcal and protein needs Anticipated Discharge Needs: Unable to determine at this time Follow-Up By: 08/03/20 Additional Comments Follow for stable TF
[2020-07-29] MEDS: levETIRAcetam 500 MG/5 ML ORAL LIQD PO SCH ×2 (09:12→22:17)
[2020-07-29] MEDS: carvediloL 25 MG TAB PO SCH ×2 (09:12→22:12)
[2020-07-29] MEDS: amLODIPine 10 MG TAB PO SCH (09:13)
[2020-07-29] MEDS: hydrALAZINE 100 MG TAB PO SCH ×3 (09:14→20:57)
[2020-07-29] MEDS: SENNOSIDES ORAL LIQD 8.8 MG/5 ML ORAL LIQD FEEDTUBE SCH ×2 (09:14→22:18)
[2020-07-29] MEDS: GLYCOPYRROLATE 2 MG TAB PO SCH ×3 (09:14→20:58)
[2020-07-29] MEDS: MINOXIDIL 2.5 MG TAB PO SCH ×2 (09:14→22:11)
[2020-07-29] MEDS: LANSOPRAZOLE 30 MG SOLUTAB FEEDTUBE SCH ×2 (09:16→22:12)
[2020-07-29] MEDS ORDERED: HEPARIN 10,000 UNIT/1 ML VIAL IV PRN (11:29)
[2020-07-29] MEDS ORDERED: SODIUM CHLORIDE 0.9% 100 ML IV PRN (11:29)
--- NOTE | 2020-07-29 12:54 | Progress Note ---
Assessment and Plan - Patient Problems (1) Acute kidney injury (AVANI) with acute tubular necrosis (ATN) Current Visit: Yes Status: Acute Plan to address problem: Kidney function had been worsening. Patient had poor diuretic response to Lasix IV. She also did not respond to Bumex and infusions with albumin infusion. Will need to start dialysis. Called patient's son and discussed benefits and risk. Patient has been in hospital for more than a month with COVID-19 and numerous complications and is not doing well. Prognosis is poor. Patient son would like to do a trial of dialysis and see how patient tolerates.. Will initiate dialysis. Vascular surgery consulted for Vas-Cath placement. (2) Acute hypoxemic respiratory failure Current Visit: Yes Status: Acute Plan to address problem: Being managed by pulmonary. S/p Extubation 06/12. Back on respirator. Continue management by pulmonary/critical care (3) Cardiac arrest Current Visit: Yes Status: Acute Plan to address problem: Patient is improving (4) Metabolic encephalopathy Current Visit: Yes Status: Acute Plan to address problem: Mental status is improving (5) Pneumonia due to COVID-19 virus Current Visit: Yes Status: Acute Plan to address problem: Patient has completed 5 days of Remdesevir. Completed course of steroids. (6) Cardiomyopathy Current Visit: No Status: Acute Qualifiers: Cardiomyopathy type: unspecified Qualified Code(s): I42.9 - Cardiomyopathy, unspecified Plan to address problem: Patient has peripheral edema. Has not responded to Bumex infusion. 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 I did not do physical exam at the bedside due to PPE conservation with the current COVID-19 pandemic. Patient is still oliguric despite scheduled Bumex drip and albumin infusions which we thought was stopped yesterday. I called patient's son yesterday and was unable to reach family and her daughters. I called son again this morning I discussed at length with him. Objective - Exam Narrative Exam: I did not do physical exam at the bedside due to PPE conservation with the current COVID-19 pandemic - Vital Signs Vital signs: Vital Signs - 12hr 07/29/20 07/29/20 07/29/20 01:00 02:00 03:00 Temperature Pulse Rate 60 61 61 Pulse Rate [ From Monitor] Respiratory 19 19 20 Rate Blood Pressure 142/53 151/59 156/48 O2 Sat by Pulse 96 96 96 Oximetry 07/29/20 07/29/20 07/29/20 04:00 04:30 05:00 Temperature 98.1 F Pulse Rate 63 63 63 Pulse Rate [ 61 From Monitor] Respiratory 21 21 Rate Blood Pressure 162/48 162/48 163/49 O2 Sat by Pulse 96 97 96 Oximetry 07/29/20 07/29/20 07/29/20 06:00 06:30 07:00 Temperature Pulse Rate 62 62 63 Pulse Rate [ From Monitor] Respiratory 17 16 Rate Blood Pressure 159/46 159/46 141/33 O2 Sat by Pulse 96 96 Oximetry 07/29/20 07/29/20 07/29/20 07:47 08:00 08:47 Temperature 98.6 F Pulse Rate 64 66 Pulse Rate [ From Monitor] Respiratory 14 30 H Rate Blood Pressure 149/47 149/47 O2 Sat by Pulse 97 96 Oximetry 07/29/20 07/29/20 07/29/20 09:00 09:12 09:13 Temperature Pulse Rate 66 66 65 Pulse Rate [ From Monitor] Respiratory 33 H Rate Blood Pressure 158/31 158/31 158/31 O2 Sat by Pulse 95 Oximetry 07/29/20 07/29/20 07/29/20 10:00 10:09 11:00 Temperature Pulse Rate 51 L 60 61 Pulse Rate [ From Monitor] Respiratory 28 H 10 L Rate Blood Pressure 158/31 155/28 162/39 O2 Sat by Pulse 87 95 97 Oximetry 07/29/20 07/29/20 12:00 12:38 Temperature 98.2 F Pulse Rate 60 59 L Pulse Rate [ From Monitor] Respiratory 15 Rate Blood Pressure 163/49 163/49 O2 Sat by Pulse 98 97 Oximetry - Lab 07/28/20 04:30 07/28/20 04:30 Most recent lab results ABG pH 7.382 (7.320-7.450) 07/18/20 04:24 ABG pCO2 47.0 mm Hg 07/05/20 13:05 ABG pO2 78.3 mm Hg (80.0-90.0) L 07/05/20 13:05 ABG HCO3 23.4 mmol/L (20.0-26.0) 07/05/20 13:05 ABG O2 Saturation 96.1 % (95.0-99.0) 07/05/20 13:05 Calcium 8.2 mg/dL (8.4-10.2) L 07/28/20 04:30 Magnesium 2.70 mg/dL (1.7-2.3) H 07/28/20 04:30 Urine Creatinine 33.3 mg/dL (0.1-20.0) H 07/06/20 13:20 Urine Sodium 21 mmol/L 07/06/20 13:20 Urine Total Protein 196 mg/dL (5-11.8) H 06/06/20 04:00 Medications & Allergies - Medications Allergies/Adverse Reactions: Allergies No Known Allergies Allergy (Verified 01/21/20 12:28) Home Medications: Home Medications Medication Instructions Recorded Confirmed Last Taken Type AtorvaSTATin [Lipitor] 20 mg PO QHS 05/12/20 05/29/20 Unknown History lisinopriL [Zestril TAB] 40 mg PO QDAY 05/12/20 05/29/20 Unknown History metFORMIN [Glucophage] 850 mg PO BID 05/12/20 05/29/20 Unknown History Acetaminophen [Acetaminophen TAB] 650 mg PO Q4H PRN tablet 05/13/20 05/29/20 Unknown Rx Dicyclomine [Bentyl] 20 mg PO BID #20 tablet 05/13/20 05/29/20 Unknown Rx Famotidine [Pepcid] 20 mg PO BID #30 tablet 05/13/20 05/29/20 Unknown Rx carvediloL [Coreg] 6.25 mg PO BID #60 05/13/20 05/29/20 Unknown Rx Active Medications: Generic Name Dose Route Start Last Admin Trade Name Freq PRN Reason Stop Dose Admin Acetaminophen 650 mg 06/09/20 10:57 06/29/20 21:18 Tylenol FEEDTUBE 650 mg Q6H PRN Administration Fever >101 Amlodipine Besylate 10 mg 06/02/20 11:00 07/29/20 09:13 Amlodipine PO 10 mg DAILY NELSON Administration Lipase/Protease/Amylase 1 each 05/29/20 13:39 07/07/20 10:[address] 10,500 Unit FEEDTUBE 1 each PRN PRN Administration For Clogged Feeding Tube Carvedilol 25 mg 07/20/20 11:00 07/29/20 09:12 Coreg PO 25 mg Q12HR NELSON Administration Clonidine HCl 0.1 mg 07/26/20 15:00 07/29/20 06:30 Catapres PO 0.1 mg Q8H NELSON Administration Epoetin Javon 10,000 unit 07/29/20 11:29 Procrit IV SCOTTY PRN hemodialysis Glycopyrrolate 2 mg 06/09/20 14:00 07/29/20 09:14 Glycopyrrolate PO 2 mg TID NELSON Administration Heparin Sodium (Porcine) 5,000 unit 06/30/20 14:00 07/29/20 06:30 Heparin SUB-Q 5,000 unit Q8HR NELSON Administration Heparin Sodium (Porcine) 5,000 unit 07/29/20 11:29 Heparin IV SCOTTY PRN hemodialysis Hydralazine HCl 100 mg 07/14/20 14:00 07/29/20 09:14 Apresoline PO 100 mg TID NELSON Administration Hydrophilic Ointment 1 applic 05/28/20 13:49 Vaseline Lip Therapy TP Q2HR PRN Dry Lips Norepinephrine 4 mg in 250 mls @ 7.5 mls/hr 07/23/20 20:00 07/24/20 07:15 Levophed Drip 4 Mg/Ns 250 Ml IV 0 mcg/min TITR NELSON 0 mls/hr Titration Protocol 2 MCG/MIN Dopamine HCl/Dextrose 800 mg in 250 mls @ 4.613 mls/hr 07/24/20 11:30 Intropin Drip 800 Mg/D5w 250 Ml IV TITR NELSON Protocol 2 MCG/KG/MIN Sodium Chloride 100 mls @ 999 mls/hr 07/29/20 11:29 Nacl 0.9% IV SCOTTY PRN Hypotension Insulin Glargine 10 units 06/08/20 22:00 07/28/20 21:54 Lantus SUB-Q 10 units QHS NELSON Administration Insulin Human Lispro 0 unit 05/29/20 18:00 07/29/20 06:31 Humalog SUB-Q 3 unit Q6H NELSON Administration Protocol Labetalol HCl 20 mg 06/03/20 09:00 07/21/20 05:56 Labetalol IV 20 mg Q4H PRN Administration HYPERTENSION Lansoprazole 30 mg 06/05/20 22:00 07/29/20 09:16 Prevacid Solutab FEEDTUBE 30 mg BID NELSON Administration Levetiracetam 1,000 mg 07/21/20 22:00 07/29/20 09:12 Keppra PO 1,000 mg BID NELSON Administration Minoxidil 5 mg 07/21/20 10:00 07/29/20 09:14 Loniten PO 5 mg BID NELSON Administration Multi-Ingred Cream/Lotion/Oil/Oint 1 applic 05/28/20 13:49 Artificial Tears Ophth Oint OU Q4HR PRN Dry Eye(s) Ondansetron HCl 4 mg 06/02/20 09:00 06/09/20 16:48 Zofran IV 4 mg Q8H PRN Administration Nausea And Vomiting Phenytoin 225 mg 07/29/20 22:00 Dilantin FEEDTUBE BID NELSON Senna 17.6 mg 06/03/20 10:00 07/29/20 09:14 Senokot FEEDTUBE 17.6 mg BID NELSON Administration Simple Syrup 15 ml 05/29/20 13:39 Simple Syrup FEEDTUBE PRN PRN Hypoglycemia Simple Syrup 30 ml 05/29/20 13:39 Simple Syrup FEEDTUBE PRN PRN Hypoglycemia Sodium Bicarbonate 325 mg 05/29/20 13:39 07/07/20 10:36 Sodium Bicarbonate FEEDTUBE 325 mg PRN PRN Administration For Clogged Feeding Tube Sodium Chloride 10 ml 05/28/20 22:00 07/29/20 09:16 Sodium Chloride Flush Syringe 10 Ml IV 10 ml BID NELSON Administration Sodium Chloride 10 ml 05/28/20 19:08 06/16/20 17:50 Sodium Chloride Flush Syringe 10 Ml IV 10 ml PRN PRN Administration LINE FLUSH
--- NOTE | 2020-07-29 13:10 | Progress Note ---
Assessment and Plan Acute hypoxemic respiratory failure on MVS Coronavirus-19 infection. Bilateral pulmonary infiltrates, bilateral pneumonia plus likely element of Pulmonary edema. Bilateral pulmonary edema. Bilateral pleural effusions. History of congestive heart failure. Morbid obesity. History of pulmonary hypertension. History of hypertension. Diabetes. Obesity hypoventilation syndrome. Elevated serum inflammatory markers to include D-dimers and LDH levels. Hyperkalemia at presentation. Metabolic acidosis. Oropharyngeal dysphagia. (AMS remains rate limiting factor to safe extubation; she will need a tracheo stomy) - tentatively to begin HD/UF for toxin and volume clearance today - prn CXR's and ABG's at this point - repeat EEG next per neurology rec's - AED's per neurology ([facility] [employer] [facility]) - surgery evaluation ongoing for trach +/- PEG (await negative COVID PCR result) - continue care as below otherwise; - GI evaluation ongoing - continue Modafinil re: lethargy / somnolence - continue daytime PSV trials as tolerated - Daily SAT and SBT assessment as tolerated - continue to wean supplemental oxygen for target O2 sat's > 90% acutely - VAP bundle addressed - continue lung protective strategies - continue bronchodilators with pulmonary hygiene per RT - wean per pulmonary driven protocols otherwise - continue accuchecks resumed with glycemic control per SSI (While critically ill target blood glucose of 140-180 mg/dL; avoid hypoglycemia) - sedation prn for target RASS 0 to -1 - continue to avoid benzodiazepine's, reduce the possibility of delirium - AB's per ID rec's (following clinically of AB's at this time) - continue enteral nutrition at goal rate as tolerated - AED's per neurology - prn analgesia per CPOT score - Maintenance of sleep-wake cycle, avoid delirium - continue enteral nutritional support at goal rate as tolerated - G.I. & VTE prophylaxis with heparin & famotidine - PT/OT/ROM exercises - continue mobility protocols for pressure ulcer prophylaxis - Monitor hemodynamics closely - continue other care per attending / other consultants - discharge planning ongoing concurrently (LTAC evaluation is appropriate) .... Re-evaluate in am & prn CONDITION: CRITICAL PROGNOSIS: GUARDED CODE STATUS: FULL CODE The high probability of a clinically significant, sudden or life-threatening deterioration of the [respiratory, cardiovascular, GI & neurologic] system(s) required my full and direct attention, intervention and personal management. The aggregate critical care time was [31] minutes without overlap. Time includes spent on; [x] Data Review and interpretation [x] Patient assessment and monitoring of vital signs [x] Documentation [x] Medication orders and management Subjective Date of service: 07/29/20 Principal diagnosis: Ac hypoxemic resp failure; COVID-19; pneumonia; CHF; Pulm H TN; OHS; DM II Interval history: Patient is seen today for: Ac hypoxemic resp failure; Coronavirus-19 infection; pneumonia; Pulmonary edema; Bilateral pleural effusions; CHF; Morbid obesity; pulmonary hypertension; OHS; DM II Seen and examined at bedside; 24hour events reviewed; nursing and respiratory care staff consulted; no adverse overnight events reported to me; resting peacefully in bed; remains on MVS; AMS is persistent; secretions moderate; awaiting vascath; weaning tenuously today Objective Vital Signs - 12hr 07/29/20 07/29/20 07/29/20 02:00 03:00 04:00 Temperature 98.1 F Pulse Rate 61 61 63 Pulse Rate [ 61 From Monitor] Respiratory 19 20 21 Rate Blood Pressure 151/59 156/48 162/48 O2 Sat by Pulse 96 96 96 Oximetry 07/29/20 07/29/20 07/29/20 04:30 05:00 06:00 Temperature Pulse Rate 63 63 62 Pulse Rate [ From Monitor] Respiratory 21 17 Rate Blood Pressure 162/48 163/49 159/46 O2 Sat by Pulse 97 96 96 Oximetry 07/29/20 07/29/20 07/29/20 06:30 07:00 07:47 Temperature 98.6 F Pulse Rate 62 63 Pulse Rate [ From Monitor] Respiratory 16 Rate Blood Pressure 159/46 141/33 O2 Sat by Pulse 96 Oximetry 07/29/20 07/29/20 07/29/20 08:00 08:47 09:00 Temperature Pulse Rate 64 66 66 Pulse Rate [ From Monitor] Respiratory 14 30 H 33 H Rate Blood Pressure 149/47 149/47 158/31 O2 Sat by Pulse 97 96 95 Oximetry 07/29/20 07/29/20 07/29/20 09:12 09:13 10:00 Temperature Pulse Rate 66 65 51 L Pulse Rate [ From Monitor] Respiratory 28 H Rate Blood Pressure 158/31 158/31 158/31 O2 Sat by Pulse 87 Oximetry 10/07/29/20 07/29/20 10:09 11:00 12:00 Temperature 98.2 F Pulse Rate 60 61 60 Pulse Rate [ From Monitor] Respiratory 10 L 15 Rate Blood Pressure 155/28 162/39 163/49 O2 Sat by Pulse 95 97 98 Oximetry 07/29/20 12:38 Temperature Pulse Rate 59 L Pulse Rate [ From Monitor] Respiratory Rate Blood Pressure 163/49 O2 Sat by Pulse 97 Oximetry Constitutional: appears uncomfortable, other (elderly looking female with mildly increased resp effort at rest) Eyes: non-icteric ENT: oropharynx dry, other (ETT 23-24 cm AYAN) Neck: supple, no lymphadenopathy, no JVD Effort: mildly labored Ascultation: Bilateral: diminished breath sounds, rhonchi Percussion: Bilateral: not dull Cardiovascular: regular rate and rhythm, other (S1,S2) Gastrointestinal: normoactive bowel sounds, soft, non-tender, non-distended Integumentary: normal Extremities: no cyanosis, pink and warm, pulses normal, no ischemia or petechiae, edema (trace) Neurologic: pupils equal and round, unable to assess, other (lethargic to obtunded) Psychiatric: other (unable to assess re: AMS) CBC and BMP: 07/29/20 13:01 07/29/20 13:01 ABG, PT/INR, D-dimer: ABG ABG pH 7.382 (7.320-7.450) 07/18/20 04:24 POC ABG pCO2 44.1 mmHg (32.0-48.0) 07/18/20 04:24 ABG pCO2 47.0 mm Hg 07/05/20 13:05 POC ABG pO2 86.8 mmHg (83-108) 07/18/20 04:24 ABG pO2 78.3 mm Hg (80.0-90.0) L 07/05/20 13:05 POC ABG HCO3 25.6 07/18/20 04:24 ABG O2 Saturation 96.1 % (95.0-99.0) 07/05/20 13:05 PT/INR, D-dimer PT 14.2 Sec. (12.2-14.9) 05/29/20 15:10 INR 1.08 (0.87-1.13) 08/21/20 15:10 D-Dimer 2310.15 ng/mlDDU (0-234) H 06/29/20 14:45 Abnormal lab findings: Abnormal Labs 05/28/20 05/28/20 05/28/20 13:29 13:47 13:47 WBC RBC Hgb Hct MCHC RDW 15.3 H Lymph % (Auto) Kay % (Auto) Eos % (Auto) Lymph # Kay # Lymph # (Auto) Kay # (Auto) Eos # (Auto) Seg Neutrophils % Seg Neuts % (Manual) Lymphocytes % (Manual) Seg Neutrophils # Seg Neutrophils # Man Lymphocytes # (Manual) Monocytes % (Manual) Eosinophils % (Manual) Monocytes # (Manual) Eosinophils # (Manual) D-Dimer Heparin Anti-Xa Level ABG pH POC ABG pCO2 POC ABG pO2 ABG pO2 ABG HCO3 ABG O2 Saturation ABG Base Excess ABG Hemoglobin ABG Oxyhemoglobin VBG pH ABG Sodium ABG Potassium ABG Glucose Oxyhemoglobin Sodium Potassium 6.6 H* Chloride 109.2 H Carbon Dioxide 17 L BUN 29 H Creatinine 1.3 H Glucose 265 H POC Glucose 248 H Lactic Acid Calcium 8.1 L Ferritin AST 63 H Alkaline Phosphatase Magnesium Lactate Dehydrogenase Total Creatine Kinase 301 H CK-MB (CK-2) 4.3 H C-Reactive Protein Total Protein 5.4 L Albumin 2.6 L Troponin T HDL Cholesterol Arterial Blood Glucose Urine WBC (Auto) Urine Creatinine Urine Total Protein Phenytoin Coronavirus (PCR) Crossmatch 05/28/20 05/28/20 05/28/20 13:47 13:47 14:46 WBC RBC Hgb Hct MCHC RDW Lymph % (Auto) Kay % (Auto) Eos % (Auto) Lymph # Kay # Lymph # (Auto) Kay # (Auto) Eos # (Auto) Seg Neutrophils % Seg Neuts % (Manual) Lymphocytes % (Manual) Seg Neutrophils # Seg Neutrophils # Man Lymphocytes # (Manual) Monocytes % (Manual) Eosinophils % (Manual) Monocytes # (Manual) Eosinophils # (Manual) D-Dimer Heparin Anti-Xa Level ABG pH POC ABG pCO2 POC ABG pO2 ABG pO2 ABG HCO3 ABG O2 Saturation ABG Base Excess ABG Hemoglobin ABG Oxyhemoglobin VBG pH 7.152 L* ABG Sodium ABG Potassium ABG Glucose Oxyhemoglobin Sodium Potassium 7.2 H* Chloride Carbon Dioxide BUN Creatinine Glucose POC Glucose Lactic Acid 3.40 H* Calcium Ferritin AST Alkaline Phosphatase Magnesium Lactate Dehydrogenase Total Creatine Kinase CK-MB (CK-2) C-Reactive Protein Total Protein Albumin Troponin T HDL Cholesterol Arterial Blood Glucose Urine WBC (Auto) Urine Creatinine Urine Total Protein Phenytoin Coronavirus (PCR) Crossmatch 05/28/20 05/28/20 05/28/20 15:33 15:33 15:51 WBC RBC Hgb Hct MCHC RDW Lymph % (Auto) Kay % (Auto) Eos % (Auto) Lymph # Kay # Lymph # (Auto) Kay # (Auto) Eos # (Auto) Seg Neutrophils % Seg Neuts % (Manual) Lymphocytes % (Manual) Seg Neutrophils # Seg Neutrophils # Man Lymphocytes # (Manual) Monocytes % (Manual) Eosinophils % (Manual) Monocytes # (Manual) Eosinophils # (Manual) D-Dimer 8780.43 H Heparin Anti-Xa Level ABG pH 7.284 L POC ABG pCO2 POC ABG pO2 ABG pO2 273.0 H ABG HCO3 ABG O2 Saturation 99.4 H ABG Base Excess -6.1 L ABG Hemoglobin 17.2 H ABG Oxyhemoglobin VBG pH ABG Sodium ABG Potassium ABG Glucose Oxyhemoglobin Sodium Potassium Chloride Carbon Dioxide BUN Creatinine Glucose 152 H POC Glucose Lactic Acid Calcium Ferritin AST Alkaline Phosphatase Magnesium Lactate Dehydrogenase 365 H Total Creatine Kinase CK-MB (CK-2) C-Reactive Protein Total Protein Albumin Troponin T HDL Cholesterol Arterial Blood Glucose Urine WBC (Auto) Urine Creatinine Urine Total Protein Phenytoin Coronavirus (PCR) Crossmatch 05/28/20 05/28/20 05/28/20 16:30 20:41 23:20 WBC RBC Hgb Hct MCHC RDW Lymph % (Auto) Kay % (Auto) Eos % (Auto) Lymph # Kay # Lymph # (Auto) Kay # (Auto) Eos # (Auto) Seg Neutrophils % Seg Neuts % (Manual) Lymphocytes % (Manual) Seg Neutrophils # Seg Neutrophils # Man Lymphocytes # (Manual) Monocytes % (Manual) Eosinophils % (Manual) Monocytes # (Manual) Eosinophils # (Manual) D-Dimer Heparin Anti-Xa Level ABG pH POC ABG pCO2 POC ABG pO2 ABG pO2 ABG HCO3 ABG O2 Saturation ABG Base Excess ABG Hemoglobin ABG Oxyhemoglobin VBG pH ABG Sodium ABG Potassium ABG Glucose Oxyhemoglobin Sodium Potassium Chloride Carbon Dioxide BUN Creatinine Glucose POC Glucose 225 H 224 H Lactic Acid Calcium Ferritin AST Alkaline Phosphatase Magnesium Lactate Dehydrogenase Total Creatine Kinase CK-MB (CK-2) C-Reactive Protein Total Protein Albumin Troponin T HDL Cholesterol Arterial Blood Glucose Urine WBC (Auto) 17.0 H Urine Creatinine Urine Total Protein Phenytoin Coronavirus (PCR) Crossmatch 05/28/20 05/29/20 05/29/20 Unknown 04:35 04:43 WBC RBC 3.48 L Hgb 9.8 L Hct 29.4 L MCHC RDW 16.0 H Lymph % (Auto) 7.4 L Kay % (Auto) Eos % (Auto) Lymph # 0.7 L Kay # Lymph # (Auto) Kay # (Auto) Eos # (Auto) Seg Neutrophils % 89.1 H Seg Neuts % (Manual) Lymphocytes % (Manual) Seg Neutrophils # 8.1 H Seg Neutrophils # Man Lymphocytes # (Manual) Monocytes % (Manual) Eosinophils % (Manual) Monocytes # (Manual) Eosinophils # (Manual) D-Dimer Heparin Anti-Xa Level ABG pH POC ABG pCO2 POC ABG pO2 ABG pO2 ABG HCO3 19.3 L ABG O2 Saturation ABG Base Excess -4.5 L ABG Hemoglobin 9.7 L ABG Oxyhemoglobin VBG pH ABG Sodium ABG Potassium ABG Glucose Oxyhemoglobin Sodium Potassium Chloride Carbon Dioxide BUN Creatinine Glucose POC Glucose Lactic Acid Calcium Ferritin AST Alkaline Phosphatase Magnesium Lactate Dehydrogenase Total Creatine Kinase CK-MB (CK-2) C-Reactive Protein Total Protein Albumin Troponin T HDL Cholesterol Arterial Blood Glucose Urine WBC (Auto) Urine Creatinine Urine Total Protein Phenytoin Coronavirus (PCR) Positive A Crossmatch 05/29/20 05/29/20 05/29/20 04:43 15:10 17:17 WBC RBC Hgb 9.3 L Hct 28.7 L MCHC RDW Lymph % (Auto) Kay % (Auto) Eos % (Auto) Lymph # Kay # Lymph # (Auto) Kay # (Auto) Eos # (Auto) Seg Neutrophils % Seg Neuts % (Manual) Lymphocytes % (Manual) Seg Neutrophils # Seg Neutrophils # Man Lymphocytes # (Manual) Monocytes % (Manual) Eosinophils % (Manual) Monocytes # (Manual) Eosinophils # (Manual) D-Dimer Heparin Anti-Xa Level ABG pH POC ABG pCO2 POC ABG pO2 ABG pO2 ABG HCO3 ABG O2 Saturation ABG Base Excess ABG Hemoglobin ABG Oxyhemoglobin VBG pH ABG Sodium ABG Potassium ABG Glucose Oxyhemoglobin Sodium Potassium Chloride 110.2 H Carbon Dioxide 18 L BUN 32 H Creatinine 1.4 H Glucose 180 H POC Glucose 147 H Lactic Acid Calcium Ferritin AST Alkaline Phosphatase Magnesium Lactate Dehydrogenase Total Creatine Kinase CK-MB (CK-2) C-Reactive Protein Total Protein Albumin Troponin T HDL Cholesterol Arterial Blood Glucose Urine WBC (Auto) Urine Creatinine Urine Total Protein Phenytoin Coronavirus (PCR) Crossmatch 05/30/20 05/30/20 05/30/20 00:08 00:12 04:15 WBC RBC Hgb Hct MCHC RDW Lymph % (Auto) Kay % (Auto) Eos % (Auto) Lymph # Kay # Lymph # (Auto) Kay # (Auto) Eos # (Auto) Seg Neutrophils % Seg Neuts % (Manual) Lymphocytes % (Manual) Seg Neutrophils # Seg Neutrophils # Man Lymphocytes # (Manual) Monocytes % (Manual) Eosinophils % (Manual) Monocytes # (Manual) Eosinophils # (Manual) D-Dimer Heparin Anti-Xa Level 0.71 H ABG pH 7.460 H POC ABG pCO2 POC ABG pO2 ABG pO2 106.0 H ABG HCO3 18.9 L ABG O2 Saturation ABG Base Excess -4.4 L ABG Hemoglobin 6.8 L ABG Oxyhemoglobin VBG pH ABG Sodium ABG Potassium ABG Glucose Oxyhemoglobin Sodium Potassium Chloride Carbon Dioxide BUN Creatinine Glucose POC Glucose 195 H Lactic Acid Calcium Ferritin AST Alkaline Phosphatase Magnesium Lactate Dehydrogenase Total Creatine Kinase CK-MB (CK-2) C-Reactive Protein Total Protein Albumin Troponin T HDL Cholesterol Arterial Blood Glucose Urine WBC (Auto) Urine Creatinine Urine Total Protein Phenytoin Coronavirus (PCR) Crossmatch 05/30/20 05/30/20 05/30/20 06:07 08:37 12:33 WBC RBC Hgb Hct MCHC RDW Lymph % (Auto) Kay % (Auto) Eos % (Auto) Lymph # Kay # Lymph # (Auto) Kay # (Auto) Eos # (Auto) Seg Neutrophils % Seg Neuts % (Manual) Lymphocytes % (Manual) Seg Neutrophils # Seg Neutrophils # Man Lymphocytes # (Manual) Monocytes % (Manual) Eosinophils % (Manual) Monocytes # (Manual) Eosinophils # (Manual) D-Dimer Heparin Anti-Xa Level 0.85 H ABG pH POC ABG pCO2 POC ABG pO2 ABG pO2 ABG HCO3 ABG O2 Saturation ABG Base Excess ABG Hemoglobin ABG Oxyhemoglobin VBG pH ABG Sodium ABG Potassium ABG Glucose Oxyhemoglobin Sodium Potassium Chloride Carbon Dioxide BUN Creatinine Glucose POC Glucose 182 H 187 H Lactic Acid Calcium Ferritin AST Alkaline Phosphatase Magnesium Lactate Dehydrogenase Total Creatine Kinase CK-MB (CK-2) C-Reactive Protein Total Protein Albumin Troponin T HDL Cholesterol Arterial Blood Glucose Urine WBC (Auto) Urine Creatinine Urine Total Protein Phenytoin Coronavirus (PCR) Crossmatch 05/30/20 05/30/20 05/30/20 15:58 17:57 23:36 WBC RBC Hgb Hct MCHC RDW Lymph % (Auto) Kay % (Auto) Eos % (Auto) Lymph # Kay # Lymph # (Auto) Kay # (Auto) Eos # (Auto) Seg Neutrophils % Seg Neuts % (Manual) Lymphocytes % (Manual) Seg Neutrophils # Seg Neutrophils # Man Lymphocytes # (Manual) Monocytes % (Manual) Eosinophils % (Manual) Monocytes # (Manual) Eosinophils # (Manual) D-Dimer Heparin Anti-Xa Level 1.03 H ABG pH POC ABG pCO2 POC ABG pO2 ABG pO2 ABG HCO3 ABG O2 Saturation ABG Base Excess ABG Hemoglobin ABG Oxyhemoglobin VBG pH ABG Sodium ABG Potassium ABG Glucose Oxyhemoglobin Sodium Potassium Chloride Carbon Dioxide BUN Creatinine Glucose POC Glucose 208 H 185 H Lactic Acid Calcium Ferritin AST Alkaline Phosphatase Magnesium Lactate Dehydrogenase Total Creatine Kinase CK-MB (CK-2) C-Reactive Protein Total Protein Albumin Troponin T HDL Cholesterol Arterial Blood Glucose Urine WBC (Auto) Urine Creatinine Urine Total Protein Phenytoin Coronavirus (PCR) Crossmatch 05/31/20 05/31/20 05/31/20 02:16 03:55 06:16 WBC RBC Hgb 9.2 L Hct 27.5 L MCHC RDW Lymph % (Auto) Kay % (Auto) Eos % (Auto) Lymph # Kay # Lymph # (Auto) Kay # (Auto) Eos # (Auto) Seg Neutrophils % Seg Neuts % (Manual) Lymphocytes % (Manual) Seg Neutrophils # Seg Neutrophils # Man Lymphocytes # (Manual) Monocytes % (Manual) Eosinophils % (Manual) Monocytes # (Manual) Eosinophils # (Manual) D-Dimer Heparin Anti-Xa Level ABG pH POC ABG pCO2 POC ABG pO2 ABG pO2 94.7 H ABG HCO3 18.6 L ABG O2 Saturation ABG Base Excess -5.5 L ABG Hemoglobin 7.9 L ABG Oxyhemoglobin VBG pH ABG Sodium ABG Potassium ABG Glucose Oxyhemoglobin Sodium Potassium Chloride Carbon Dioxide BUN Creatinine Glucose POC Glucose 160 H Lactic Acid Calcium Ferritin AST Alkaline Phosphatase Magnesium Lactate Dehydrogenase Total Creatine Kinase CK-MB (CK-2) C-Reactive Protein Total Protein Albumin Troponin T HDL Cholesterol Arterial Blood Glucose Urine WBC (Auto) Urine Creatinine Urine Total Protein Phenytoin Coronavirus (PCR) Crossmatch 05/31/20 05/31/20 05/31/20 12:20 13:03 18:13 WBC RBC Hgb Hct MCHC RDW Lymph % (Auto) Kay % (Auto) Eos % (Auto) Lymph # Kay # Lymph # (Auto) Kay # (Auto) Eos # (Auto) Seg Neutrophils % Seg Neuts % (Manual) Lymphocytes % (Manual) Seg Neutrophils # Seg Neutrophils # Man Lymphocytes # (Manual) Monocytes % (Manual) Eosinophils % (Manual) Monocytes # (Manual) Eosinophils # (Manual) D-Dimer Heparin Anti-Xa Level ABG pH POC ABG pCO2 POC ABG pO2 ABG pO2 ABG HCO3 ABG O2 Saturation ABG Base Excess ABG Hemoglobin ABG Oxyhemoglobin VBG pH ABG Sodium ABG Potassium ABG Glucose Oxyhemoglobin Sodium Potassium Chloride Carbon Dioxide 18 L BUN 48 H Creatinine 1.6 H Glucose 115 H POC Glucose 128 H 159 H Lactic Acid Calcium 8.3 L Ferritin AST Alkaline Phosphatase Magnesium Lactate Dehydrogenase Total Creatine Kinase CK-MB (CK-2) C-Reactive Protein Total Protein 5.4 L Albumin 2.4 L Troponin T HDL Cholesterol Arterial Blood Glucose Urine WBC (Auto) Urine Creatinine Urine Total Protein Phenytoin Coronavirus (PCR) Crossmatch 05/31/20 06/01/20 06/01/20 23:51 04:00 05:48 WBC RBC Hgb Hct MCHC RDW Lymph % (Auto) Kay % (Auto) Eos % (Auto) Lymph # Kay # Lymph # (Auto) Kay # (Auto) Eos # (Auto) Seg Neutrophils % Seg Neuts % (Manual) Lymphocytes % (Manual) Seg Neutrophils # Seg Neutrophils # Man Lymphocytes # (Manual) Monocytes % (Manual) Eosinophils % (Manual) Monocytes # (Manual) Eosinophils # (Manual) D-Dimer Heparin Anti-Xa Level ABG pH POC ABG pCO2 POC ABG pO2 ABG pO2 109.8 H ABG HCO3 18.8 L ABG O2 Saturation ABG Base Excess -5.9 L ABG Hemoglobin 7.8 L ABG Oxyhemoglobin VBG pH ABG Sodium ABG Potassium ABG Glucose Oxyhemoglobin Sodium Potassium Chloride Carbon Dioxide BUN Creatinine Glucose POC Glucose 171 H 133 H Lactic Acid Calcium Ferritin AST Alkaline Phosphatase Magnesium Lactate Dehydrogenase Total Creatine Kinase CK-MB (CK-2) C-Reactive Protein Total Protein Albumin Troponin T HDL Cholesterol Arterial Blood Glucose Urine WBC (Auto) Urine Creatinine Urine Total Protein Phenytoin Coronavirus (PCR) Crossmatch 06/01/20 06/01/20 06/02/20 12:28 17:29 00:08 WBC RBC Hgb Hct MCHC RDW Lymph % (Auto) Kay % (Auto) Eos % (Auto) Lymph # Kay # Lymph # (Auto) Kay # (Auto) Eos # (Auto) Seg Neutrophils % Seg Neuts % (Manual) Lymphocytes % (Manual) Seg Neutrophils # Seg Neutrophils # Man Lymphocytes # (Manual) Monocytes % (Manual) Eosinophils % (Manual) Monocytes # (Manual) Eosinophils # (Manual) D-Dimer Heparin Anti-Xa Level ABG pH POC ABG pCO2 POC ABG pO2 ABG pO2 ABG HCO3 ABG O2 Saturation ABG Base Excess ABG Hemoglobin ABG Oxyhemoglobin VBG pH ABG Sodium ABG Potassium ABG Glucose Oxyhemoglobin Sodium Potassium Chloride Carbon Dioxide BUN Creatinine Glucose POC Glucose 199 H 209 H 162 H Lactic Acid Calcium Ferritin AST Alkaline Phosphatase Magnesium Lactate Dehydrogenase Total Creatine Kinase CK-MB (CK-2) C-Reactive Protein Total Protein Albumin Troponin T HDL Cholesterol Arterial Blood Glucose Urine WBC (Auto) Urine Creatinine Urine Total Protein Phenytoin Coronavirus (PCR) Crossmatch 06/02/20 06/02/20 06/02/20 04:20 04:20 04:44 WBC RBC Hgb 10.0 L Hct MCHC RDW Lymph % (Auto) Kay % (Auto) Eos % (Auto) Lymph # Kay # Lymph # (Auto) Kay # (Auto) Eos # (Auto) Seg Neutrophils % Seg Neuts % (Manual) Lymphocytes % (Manual) Seg Neutrophils # Seg Neutrophils # Man Lymphocytes # (Manual) Monocytes % (Manual) Eosinophils % (Manual) Monocytes # (Manual) Eosinophils # (Manual) D-Dimer Heparin Anti-Xa Level 0.10 L ABG pH POC ABG pCO2 POC ABG pO2 ABG pO2 150.6 H ABG HCO3 ABG O2 Saturation ABG Base Excess -4.1 L ABG Hemoglobin 11.8 L ABG Oxyhemoglobin VBG pH ABG Sodium ABG Potassium ABG Glucose Oxyhemoglobin Sodium Potassium Chloride Carbon Dioxide BUN Creatinine Glucose POC Glucose Lactic Acid Calcium Ferritin AST Alkaline Phosphatase Magnesium Lactate Dehydrogenase Total Creatine Kinase CK-MB (CK-2) C-Reactive Protein Total Protein Albumin Troponin T HDL Cholesterol Arterial Blood Glucose Urine WBC (Auto) Urine Creatinine Urine Total Protein Phenytoin Coronavirus (PCR) Crossmatch 06/02/20 06/02/20 06/02/20 05:53 12:04 13:49 WBC RBC Hgb Hct MCHC RDW Lymph % (Auto) Kay % (Auto) Eos % (Auto) Lymph # Kay # Lymph # (Auto) Kay # (Auto) Eos # (Auto) Seg Neutrophils % Seg Neuts % (Manual) Lymphocytes % (Manual) Seg Neutrophils # Seg Neutrophils # Man Lymphocytes # (Manual) Monocytes % (Manual) Eosinophils % (Manual) Monocytes # (Manual) Eosinophils # (Manual) D-Dimer Heparin Anti-Xa Level 0.28 L ABG pH POC ABG pCO2 POC ABG pO2 ABG pO2 ABG HCO3 ABG O2 Saturation ABG Base Excess ABG Hemoglobin ABG Oxyhemoglobin VBG pH ABG Sodium ABG Potassium ABG Glucose Oxyhemoglobin Sodium Potassium Chloride Carbon Dioxide BUN Creatinine Glucose POC Glucose 149 H 220 H Lactic Acid Calcium Ferritin AST Alkaline Phosphatase Magnesium Lactate Dehydrogenase Total Creatine Kinase CK-MB (CK-2) C-Reactive Protein Total Protein Albumin Troponin T HDL Cholesterol Arterial Blood Glucose Urine WBC (Auto) Urine Creatinine Urine Total Protein Phenytoin Coronavirus (PCR) Crossmatch 06/02/20 06/02/20 06/03/20 13:49 18:31 00:42 WBC RBC Hgb Hct MCHC RDW Lymph % (Auto) Kay % (Auto) Eos % (Auto) Lymph # Kay # Lymph # (Auto) Kay # (Auto) Eos # (Auto) Seg Neutrophils % Seg Neuts % (Manual) Lymphocytes % (Manual) Seg Neutrophils # Seg Neutrophils # Man Lymphocytes # (Manual) Monocytes % (Manual) Eosinophils % (Manual) Monocytes # (Manual) Eosinophils # (Manual) D-Dimer 769.68 H Heparin Anti-Xa Level ABG pH POC ABG pCO2 POC ABG pO2 ABG pO2 ABG HCO3 ABG O2 Saturation ABG Base Excess ABG Hemoglobin ABG Oxyhemoglobin VBG pH ABG Sodium ABG Potassium ABG Glucose Oxyhemoglobin Sodium Potassium Chloride Carbon Dioxide BUN Creatinine Glucose POC Glucose 225 H 212 H Lactic Acid Calcium Ferritin AST Alkaline Phosphatase Magnesium Lactate Dehydrogenase Total Creatine Kinase CK-MB (CK-2) C-Reactive Protein Total Protein Albumin Troponin T HDL Cholesterol Arterial Blood Glucose Urine WBC (Auto) Urine Creatinine Urine Total Protein Phenytoin Coronavirus (PCR) Crossmatch 06/03/20 06/03/20 06/03/20 05:16 05:16 05:25 WBC 11.4 H RBC Hgb Hct MCHC RDW 16.4 H Lymph % (Auto) Kay % (Auto) Eos % (Auto) Lymph # Kay # Lymph # (Auto) Kay # (Auto) Eos # (Auto) Seg Neutrophils % Seg Neuts % (Manual) Lymphocytes % (Manual) Seg Neutrophils # Seg Neutrophils # Man Lymphocytes # (Manual) Monocytes % (Manual) Eosinophils % (Manual) Monocytes # (Manual) Eosinophils # (Manual) D-Dimer Heparin Anti-Xa Level ABG pH POC ABG pCO2 POC ABG pO2 ABG pO2 160.9 H ABG HCO3 19.4 L ABG O2 Saturation ABG Base Excess -4.9 L ABG Hemoglobin 7.0 L ABG Oxyhemoglobin VBG pH ABG Sodium ABG Potassium ABG Glucose Oxyhemoglobin Sodium Potassium Chloride Carbon Dioxide 18 L BUN 65 H Creatinine 2.0 H Glucose 175 H POC Glucose Lactic Acid Calcium 8.0 L Ferritin AST Alkaline Phosphatase Magnesium Lactate Dehydrogenase Total Creatine Kinase CK-MB (CK-2) C-Reactive Protein Total Protein 5.5 L Albumin 2.2 L Troponin T HDL Cholesterol Arterial Blood Glucose Urine WBC (Auto) Urine Creatinine Urine Total Protein Phenytoin Coronavirus (PCR) Crossmatch 06/03/20 06/03/20 06/03/20 06:07 11:58 18:24 WBC RBC Hgb Hct MCHC RDW Lymph % (Auto) Kay % (Auto) Eos % (Auto) Lymph # Kay # Lymph # (Auto) Kay # (Auto) Eos # (Auto) Seg Neutrophils % Seg Neuts % (Manual) Lymphocytes % (Manual) Seg Neutrophils # Seg Neutrophils # Man Lymphocytes # (Manual) Monocytes % (Manual) Eosinophils % (Manual) Monocytes # (Manual) Eosinophils # (Manual) D-Dimer Heparin Anti-Xa Level ABG pH POC ABG pCO2 POC ABG pO2 ABG pO2 ABG HCO3 ABG O2 Saturation ABG Base Excess ABG Hemoglobin ABG Oxyhemoglobin VBG pH ABG Sodium ABG Potassium ABG Glucose Oxyhemoglobin Sodium Potassium Chloride Carbon Dioxide BUN Creatinine Glucose POC Glucose 177 H 163 H 211 H Lactic Acid Calcium Ferritin AST Alkaline Phosphatase Magnesium Lactate Dehydrogenase Total Creatine Kinase CK-MB (CK-2) C-Reactive Protein Total Protein Albumin Troponin T HDL Cholesterol Arterial Blood Glucose Urine WBC (Auto) Urine Creatinine Urine Total Protein Phenytoin Coronavirus (PCR) Crossmatch 06/03/20 06/03/20 06/04/20 21:50 Unknown 00:26 WBC RBC Hgb Hct MCHC RDW Lymph % (Auto) Kay % (Auto) Eos % (Auto) Lymph # Kay # Lymph # (Auto) Kay # (Auto) Eos # (Auto) Seg Neutrophils % Seg Neuts % (Manual) Lymphocytes % (Manual) Seg Neutrophils # Seg Neutrophils # Man Lymphocytes # (Manual) Monocytes % (Manual) Eosinophils % (Manual) Monocytes # (Manual) Eosinophils # (Manual) D-Dimer Heparin Anti-Xa Level ABG pH POC ABG pCO2 POC ABG pO2 ABG pO2 ABG HCO3 ABG O2 Saturation ABG Base Excess ABG Hemoglobin ABG Oxyhemoglobin VBG pH ABG Sodium ABG Potassium ABG Glucose Oxyhemoglobin Sodium 135 L Potassium Chloride Carbon Dioxide 18 L BUN Creatinine Glucose POC Glucose 241 H Lactic Acid Calcium Ferritin AST Alkaline Phosphatase Magnesium Lactate Dehydrogenase Total Creatine Kinase CK-MB (CK-2) C-Reactive Protein Total Protein Albumin Troponin T HDL Cholesterol Arterial Blood Glucose Urine WBC (Auto) 11.0 H Urine Creatinine Urine Total Protein Phenytoin Coronavirus (PCR) Crossmatch 06/04/20 06/04/20 06/04/20 03:35 04:19 04:19 WBC RBC 3.15 L Hgb 8.9 L Hct 26.8 L D MCHC RDW 15.9 H Lymph % (Auto) 6.0 L Kay % (Auto) Eos % (Auto) Lymph # 0.6 L Kay # Lymph # (Auto) Kay # (Auto) Eos # (Auto) Seg Neutrophils % 86.6 H Seg Neuts % (Manual) Lymphocytes % (Manual) Seg Neutrophils # 9.1 H Seg Neutrophils # Man Lymphocytes # (Manual) Monocytes % (Manual) Eosinophils % (Manual) Monocytes # (Manual) Eosinophils # (Manual) D-Dimer Heparin Anti-Xa Level ABG pH 7.331 L POC ABG pCO2 POC ABG pO2 ABG pO2 ABG HCO3 ABG O2 Saturation ABG Base Excess -4.7 L ABG Hemoglobin 11.0 L ABG Oxyhemoglobin VBG pH ABG Sodium ABG Potassium ABG Glucose Oxyhemoglobin 93.9 L Sodium 136 L Potassium Chloride Carbon Dioxide 20 L BUN 73 H Creatinine 2.0 H Glucose 192 H POC Glucose Lactic Acid Calcium 8.0 L Ferritin AST Alkaline Phosphatase Magnesium Lactate Dehydrogenase 271 H Total Creatine Kinase CK-MB (CK-2) C-Reactive Protein 2.20 H Total Protein 5.0 L Albumin 2.0 L Troponin T HDL Cholesterol Arterial Blood Glucose Urine WBC (Auto) Urine Creatinine Urine Total Protein Phenytoin Coronavirus (PCR) Crossmatch 06/04/20 06/04/20 06/04/20 04:19 05:51 11:48 WBC RBC Hgb Hct MCHC RDW Lymph % (Auto) Kay % (Auto) Eos % (Auto) Lymph # Kay # Lymph # (Auto) Kay # (Auto) Eos # (Auto) Seg Neutrophils % Seg Neuts % (Manual) Lymphocytes % (Manual) Seg Neutrophils # Seg Neutrophils # Man Lymphocytes # (Manual) Monocytes % (Manual) Eosinophils % (Manual) Monocytes # (Manual) Eosinophils # (Manual) D-Dimer 414.52 H Heparin Anti-Xa Level ABG pH POC ABG pCO2 POC ABG pO2 ABG pO2 ABG HCO3 ABG O2 Saturation ABG Base Excess ABG Hemoglobin ABG Oxyhemoglobin VBG pH ABG Sodium ABG Potassium ABG Glucose Oxyhemoglobin Sodium Potassium Chloride Carbon Dioxide BUN Creatinine Glucose POC Glucose 179 H 213 H Lactic Acid Calcium Ferritin AST Alkaline Phosphatase Magnesium Lactate Dehydrogenase Total Creatine Kinase CK-MB (CK-2) C-Reactive Protein Total Protein Albumin Troponin T HDL Cholesterol Arterial Blood Glucose Urine WBC (Auto) Urine Creatinine Urine Total Protein Phenytoin Coronavirus (PCR) Crossmatch 06/04/20 06/05/20 06/05/20 18:25 00:16 05:00 WBC RBC Hgb Hct MCHC RDW Lymph % (Auto) Kay % (Auto) Eos % (Auto) Lymph # Kay # Lymph # (Auto) Kay # (Auto) Eos # (Auto) Seg Neutrophils % Seg Neuts % (Manual) Lymphocytes % (Manual) Seg Neutrophils # Seg Neutrophils # Man Lymphocytes # (Manual) Monocytes % (Manual) Eosinophils % (Manual) Monocytes # (Manual) Eosinophils # (Manual) D-Dimer Heparin Anti-Xa Level ABG pH 7.286 L POC ABG pCO2 POC ABG pO2 ABG pO2 96.2 H ABG HCO3 ABG O2 Saturation ABG Base Excess -6.3 L ABG Hemoglobin 8.8 L ABG Oxyhemoglobin VBG pH ABG Sodium ABG Potassium ABG Glucose Oxyhemoglobin 94.8 L Sodium Potassium Chloride Carbon Dioxide BUN Creatinine Glucose POC Glucose 238 H 183 H Lactic Acid Calcium Ferritin AST Alkaline Phosphatase Magnesium Lactate Dehydrogenase Total Creatine Kinase CK-MB (CK-2) C-Reactive Protein Total Protein Albumin Troponin T HDL Cholesterol Arterial Blood Glucose Urine WBC (Auto) Urine Creatinine Urine Total Protein Phenytoin Coronavirus (PCR) Crossmatch 06/05/20 06/05/20 06/05/20 05:39 07:25 07:25 WBC RBC 2.97 L Hgb 8.7 L Hct 25.7 L MCHC RDW 16.0 H Lymph % (Auto) 8.8 L Kay % (Auto) 13.3 H Eos % (Auto) Lymph # 0.8 L Kay # 1.3 H Lymph # (Auto) Kay # (Auto) Eos # (Auto) Seg Neutrophils % 77.3 H Seg Neuts % (Manual) Lymphocytes % (Manual) Seg Neutrophils # Seg Neutrophils # Man Lymphocytes # (Manual) Monocytes % (Manual) Eosinophils % (Manual) Monocytes # (Manual) Eosinophils # (Manual) D-Dimer Heparin Anti-Xa Level ABG pH POC ABG pCO2 POC ABG pO2 ABG pO2 ABG HCO3 ABG O2 Saturation ABG Base Excess ABG Hemoglobin ABG Oxyhemoglobin VBG pH ABG Sodium ABG Potassium ABG Glucose Oxyhemoglobin Sodium 133 L Potassium Chloride Carbon Dioxide 17 L BUN 89 H Creatinine 2.8 H Glucose 176 H POC Glucose 149 H Lactic Acid Calcium 7.7 L Ferritin AST Alkaline Phosphatase Magnesium Lactate Dehydrogenase Total Creatine Kinase CK-MB (CK-2) C-Reactive Protein Total Protein 4.2 L Albumin 1.9 L Troponin T HDL Cholesterol Arterial Blood Glucose Urine WBC (Auto) Urine Creatinine Urine Total Protein Phenytoin Coronavirus (PCR) Crossmatch 06/05/20 06/05/20 06/05/20 07:25 12:05 15:41 WBC RBC Hgb Hct MCHC RDW Lymph % (Auto) Kay % (Auto) Eos % (Auto) Lymph # Kay # Lymph # (Auto) Kay # (Auto) Eos # (Auto) Seg Neutrophils % Seg Neuts % (Manual) Lymphocytes % (Manual) Seg Neutrophils # Seg Neutrophils # Man Lymphocytes # (Manual) Monocytes % (Manual) Eosinophils % (Manual) Monocytes # (Manual) Eosinophils # (Manual) D-Dimer Heparin Anti-Xa Level 0.76 H 0.81 H ABG pH POC ABG pCO2 POC ABG pO2 ABG pO2 ABG HCO3 ABG O2 Saturation ABG Base Excess ABG Hemoglobin ABG Oxyhemoglobin VBG pH ABG Sodium ABG Potassium ABG Glucose Oxyhemoglobin Sodium Potassium Chloride Carbon Dioxide BUN Creatinine Glucose POC Glucose 198 H Lactic Acid Calcium Ferritin AST Alkaline Phosphatase Magnesium Lactate Dehydrogenase Total Creatine Kinase CK-MB (CK-2) C-Reactive Protein Total Protein Albumin Troponin T HDL Cholesterol Arterial Blood Glucose Urine WBC (Auto) Urine Creatinine Urine Total Protein Phenytoin Coronavirus (PCR) Crossmatch 06/05/20 06/05/20 06/06/20 18:08 23:25 04:00 WBC RBC Hgb Hct MCHC RDW Lymph % (Auto) Kay % (Auto) Eos % (Auto) Lymph # Kay # Lymph # (Auto) Kay # (Auto) Eos # (Auto) Seg Neutrophils % Seg Neuts % (Manual) Lymphocytes % (Manual) Seg Neutrophils # Seg Neutrophils # Man Lymphocytes # (Manual) Monocytes % (Manual) Eosinophils % (Manual) Monocytes # (Manual) Eosinophils # (Manual) D-Dimer Heparin Anti-Xa Level ABG pH POC ABG pCO2 POC ABG pO2 ABG pO2 ABG HCO3 ABG O2 Saturation ABG Base Excess ABG Hemoglobin ABG Oxyhemoglobin VBG pH ABG Sodium ABG Potassium ABG Glucose Oxyhemoglobin Sodium Potassium Chloride Carbon Dioxide BUN Creatinine Glucose POC Glucose 223 H 169 H Lactic Acid Calcium Ferritin AST Alkaline Phosphatase Magnesium Lactate Dehydrogenase Total Creatine Kinase CK-MB (CK-2) C-Reactive Protein Total Protein Albumin Troponin T HDL Cholesterol Arterial Blood Glucose Urine WBC (Auto) 15.0 H Urine Creatinine Urine Total Protein Phenytoin Coronavirus (PCR) Crossmatch 06/06/20 06/06/20 06/06/20 04:00 05:33 05:38 WBC RBC 2.97 L Hgb 8.7 L Hct 26.8 L MCHC RDW 16.8 H Lymph % (Auto) Kay % (Auto) Eos % (Auto) Lymph # Kay # Lymph # (Auto) Kay # (Auto) Eos # (Auto) Seg Neutrophils % Seg Neuts % (Manual) Lymphocytes % (Manual) Seg Neutrophils # Seg Neutrophils # Man Lymphocytes # (Manual) Monocytes % (Manual) Eosinophils % (Manual) Monocytes # (Manual) Eosinophils # (Manual) D-Dimer Heparin Anti-Xa Level ABG pH POC ABG pCO2 POC ABG pO2 ABG pO2 ABG HCO3 ABG O2 Saturation ABG Base Excess ABG Hemoglobin ABG Oxyhemoglobin VBG pH ABG Sodium ABG Potassium ABG Glucose Oxyhemoglobin Sodium Potassium Chloride Carbon Dioxide BUN Creatinine Glucose POC Glucose 186 H Lactic Acid Calcium Ferritin AST Alkaline Phosphatase Magnesium Lactate Dehydrogenase Total Creatine Kinase CK-MB (CK-2) C-Reactive Protein Total Protein Albumin Troponin T HDL Cholesterol Arterial Blood Glucose Urine WBC (Auto) Urine Creatinine 82.2 H Urine Total Protein 196 H Phenytoin Coronavirus (PCR) Crossmatch 06/06/20 06/06/20 06/06/20 05:38 12:25 17:03 WBC RBC Hgb Hct MCHC RDW Lymph % (Auto) Kay % (Auto) Eos % (Auto) Lymph # Kay # Lymph # (Auto) Kay # (Auto) Eos # (Auto) Seg Neutrophils % Seg Neuts % (Manual) Lymphocytes % (Manual) Seg Neutrophils # Seg Neutrophils # Man Lymphocytes # (Manual) Monocytes % (Manual) Eosinophils % (Manual) Monocytes # (Manual) Eosinophils # (Manual) D-Dimer Heparin Anti-Xa Level ABG pH POC ABG pCO2 POC ABG pO2 ABG pO2 ABG HCO3 ABG O2 Saturation ABG Base Excess ABG Hemoglobin ABG Oxyhemoglobin VBG pH ABG Sodium ABG Potassium ABG Glucose Oxyhemoglobin Sodium 134 L Potassium 5.2 H Chloride Carbon Dioxide 18 L BUN 97 H Creatinine 2.5 H Glucose 193 H POC Glucose 239 H 252 H Lactic Acid Calcium 7.5 L Ferritin AST Alkaline Phosphatase Magnesium Lactate Dehydrogenase Total Creatine Kinase CK-MB (CK-2) C-Reactive Protein Total Protein 4.1 L Albumin 1.9 L Troponin T HDL Cholesterol Arterial Blood Glucose Urine WBC (Auto) Urine Creatinine Urine Total Protein Phenytoin Coronavirus (PCR) Crossmatch 06/07/20 06/07/20 06/07/20 00:16 01:49 04:00 WBC RBC 2.91 L Hgb 8.4 L Hct 25.0 L MCHC RDW 16.1 H Lymph % (Auto) 5.7 L Kay % (Auto) 10.5 H Eos % (Auto) Lymph # 0.6 L Kay # 1.1 H Lymph # (Auto) Kay # (Auto) Eos # (Auto) Seg Neutrophils % 83.6 H Seg Neuts % (Manual) Lymphocytes % (Manual) Seg Neutrophils # 9.1 H Seg Neutrophils # Man Lymphocytes # (Manual) Monocytes % (Manual) Eosinophils % (Manual) Monocytes # (Manual) Eosinophils # (Manual) D-Dimer Heparin Anti-Xa Level 0.26 L ABG pH POC ABG pCO2 POC ABG pO2 ABG pO2 ABG HCO3 ABG O2 Saturation ABG Base Excess ABG Hemoglobin ABG Oxyhemoglobin VBG pH ABG Sodium ABG Potassium ABG Glucose Oxyhemoglobin Sodium Potassium Chloride Carbon Dioxide BUN Creatinine Glucose POC Glucose 173 H Lactic Acid Calcium Ferritin AST Alkaline Phosphatase Magnesium Lactate Dehydrogenase Total Creatine Kinase CK-MB (CK-2) C-Reactive Protein Total Protein Albumin Troponin T HDL Cholesterol Arterial Blood Glucose Urine WBC (Auto) Urine Creatinine Urine Total Protein Phenytoin Coronavirus (PCR) Crossmatch 06/07/20 06/07/20 06/07/20 04:00 04:54 05:51 WBC RBC Hgb Hct MCHC RDW Lymph % (Auto) Kay % (Auto) Eos % (Auto) Lymph # Kay # Lymph # (Auto) Kay # (Auto) Eos # (Auto) Seg Neutrophils % Seg Neuts % (Manual) Lymphocytes % (Manual) Seg Neutrophils # Seg Neutrophils # Man Lymphocytes # (Manual) Monocytes % (Manual) Eosinophils % (Manual) Monocytes # (Manual) Eosinophils # (Manual) D-Dimer Heparin Anti-Xa Level ABG pH 7.317 L POC ABG pCO2 POC ABG pO2 ABG pO2 71.4 L ABG HCO3 ABG O2 Saturation 94.3 L ABG Base Excess -4.8 L ABG Hemoglobin 7.1 L ABG Oxyhemoglobin VBG pH ABG Sodium ABG Potassium ABG Glucose Oxyhemoglobin 92.2 L Sodium 133 L Potassium Chloride Carbon Dioxide 18 L BUN 100 H Creatinine 2.5 H Glucose 158 H POC Glucose 168 H Lactic Acid Calcium 7.6 L Ferritin AST Alkaline Phosphatase Magnesium Lactate Dehydrogenase Total Creatine Kinase CK-MB (CK-2) C-Reactive Protein Total Protein 4.7 L Albumin 2.0 L Troponin T HDL Cholesterol Arterial Blood Glucose Urine WBC (Auto) Urine Creatinine Urine Total Protein Phenytoin Coronavirus (PCR) Crossmatch 06/07/20 06/07/20 06/07/20 12:03 17:17 20:10 WBC RBC Hgb Hct MCHC RDW Lymph % (Auto) Kay % (Auto) Eos % (Auto) Lymph # Kay # Lymph # (Auto) Kay # (Auto) Eos # (Auto) Seg Neutrophils % Seg Neuts % (Manual) Lymphocytes % (Manual) Seg Neutrophils # Seg Neutrophils # Man Lymphocytes # (Manual) Monocytes % (Manual) Eosinophils % (Manual) Monocytes # (Manual) Eosinophils # (Manual) D-Dimer Heparin Anti-Xa Level 0.17 L ABG pH POC ABG pCO2 POC ABG pO2 ABG pO2 ABG HCO3 ABG O2 Saturation ABG Base Excess ABG Hemoglobin ABG Oxyhemoglobin VBG pH ABG Sodium ABG Potassium ABG Glucose Oxyhemoglobin Sodium Potassium Chloride Carbon Dioxide BUN Creatinine Glucose POC Glucose 276 H 281 H Lactic Acid Calcium Ferritin AST Alkaline Phosphatase Magnesium Lactate Dehydrogenase Total Creatine Kinase CK-MB (CK-2) C-Reactive Protein Total Protein Albumin Troponin T HDL Cholesterol Arterial Blood Glucose Urine WBC (Auto) Urine Creatinine Urine Total Protein Phenytoin Coronavirus (PCR) Crossmatch 06/08/20 06/08/20 06/08/20 00:02 04:47 04:47 WBC 16.4 H RBC 3.07 L Hgb 8.6 L Hct 26.5 L MCHC RDW 16.3 H Lymph % (Auto) Kay % (Auto) Eos % (Auto) Lymph # Kay # Lymph # (Auto) Kay # (Auto) Eos # (Auto) Seg Neutrophils % Seg Neuts % (Manual) 90.0 H Lymphocytes % (Manual) 3.0 L Seg Neutrophils # Seg Neutrophils # Man 14.8 H Lymphocytes # (Manual) 0.5 L Monocytes % (Manual) Eosinophils % (Manual) Monocytes # (Manual) 1.1 H Eosinophils # (Manual) D-Dimer Heparin Anti-Xa Level ABG pH POC ABG pCO2 POC ABG pO2 ABG pO2 ABG HCO3 ABG O2 Saturation ABG Base Excess ABG Hemoglobin ABG Oxyhemoglobin VBG pH ABG Sodium ABG Potassium ABG Glucose Oxyhemoglobin Sodium 129 L Potassium Chloride 95.6 L Carbon Dioxide 17 L BUN 106 H Creatinine 2.5 H Glucose 213 H POC Glucose 242 H Lactic Acid Calcium 7.6 L Ferritin AST Alkaline Phosphatase Magnesium Lactate Dehydrogenase Total Creatine Kinase CK-MB (CK-2) C-Reactive Protein Total Protein 5.0 L Albumin 2.1 L Troponin T HDL Cholesterol Arterial Blood Glucose Urine WBC (Auto) Urine Creatinine Urine Total Protein Phenytoin Coronavirus (PCR) Crossmatch 06/08/20 06/08/20 06/08/20 05:40 11:55 17:54 WBC RBC Hgb Hct MCHC RDW Lymph % (Auto) Kay % (Auto) Eos % (Auto) Lymph # Kay # Lymph # (Auto) Kay # (Auto) Eos # (Auto) Seg Neutrophils % Seg Neuts % (Manual) Lymphocytes % (Manual) Seg Neutrophils # Seg Neutrophils # Man Lymphocytes # (Manual) Monocytes % (Manual) Eosinophils % (Manual) Monocytes # (Manual) Eosinophils # (Manual) D-Dimer Heparin Anti-Xa Level ABG pH POC ABG pCO2 POC ABG pO2 ABG pO2 ABG HCO3 ABG O2 Saturation ABG Base Excess ABG Hemoglobin ABG Oxyhemoglobin VBG pH ABG Sodium ABG Potassium ABG Glucose Oxyhemoglobin Sodium Potassium Chloride Carbon Dioxide BUN Creatinine Glucose POC Glucose 221 H 218 H 163 H Lactic Acid Calcium Ferritin AST Alkaline Phosphatase Magnesium Lactate Dehydrogenase Total Creatine Kinase CK-MB (CK-2) C-Reactive Protein Total Protein Albumin Troponin T HDL Cholesterol Arterial Blood Glucose Urine WBC (Auto) Urine Creatinine Urine Total Protein Phenytoin Coronavirus (PCR) Crossmatch 06/08/20 06/09/20 06/09/20 22:01 00:09 05:16 WBC 19.0 H RBC 3.35 L Hgb 9.2 L Hct 28.5 L MCHC RDW 16.3 H Lymph % (Auto) Kay % (Auto) Eos % (Auto) Lymph # Kay # Lymph # (Auto) Kay # (Auto) Eos # (Auto) Seg Neutrophils % Seg Neuts % (Manual) 85.0 H Lymphocytes % (Manual) 7.0 L Seg Neutrophils # Seg Neutrophils # Man 16.2 H Lymphocytes # (Manual) Monocytes % (Manual) Eosinophils % (Manual) Monocytes # (Manual) 1.3 H Eosinophils # (Manual) D-Dimer Heparin Anti-Xa Level ABG pH POC ABG pCO2 POC ABG pO2 ABG pO2 ABG HCO3 ABG O2 Saturation ABG Base Excess ABG Hemoglobin ABG Oxyhemoglobin VBG pH ABG Sodium ABG Potassium ABG Glucose Oxyhemoglobin Sodium Potassium Chloride Carbon Dioxide BUN Creatinine Glucose POC Glucose 182 H 150 H Lactic Acid Calcium Ferritin AST Alkaline Phosphatase Magnesium Lactate Dehydrogenase Total Creatine Kinase CK-MB (CK-2) C-Reactive Protein Total Protein Albumin Troponin T HDL Cholesterol Arterial Blood Glucose Urine WBC (Auto) Urine Creatinine Urine Total Protein Phenytoin Coronavirus (PCR) Crossmatch 06/09/20 06/09/20 06/09/20 05:16 05:24 11:29 WBC RBC Hgb Hct MCHC RDW Lymph % (Auto) Kay % (Auto) Eos % (Auto) Lymph # Kay # Lymph # (Auto) Kay # (Auto) Eos # (Auto) Seg Neutrophils % Seg Neuts % (Manual) Lymphocytes % (Manual) Seg Neutrophils # Seg Neutrophils # Man Lymphocytes # (Manual) Monocytes % (Manual) Eosinophils % (Manual) Monocytes # (Manual) Eosinophils # (Manual) D-Dimer Heparin Anti-Xa Level ABG pH POC ABG pCO2 POC ABG pO2 ABG pO2 ABG HCO3 ABG O2 Saturation ABG Base Excess ABG Hemoglobin ABG Oxyhemoglobin VBG pH ABG Sodium ABG Potassium ABG Glucose Oxyhemoglobin Sodium 133 L Potassium Chloride Carbon Dioxide 19 L BUN 109 H Creatinine 2.1 H Glucose 133 H POC Glucose 128 H 119 H Lactic Acid Calcium 7.7 L Ferritin AST Alkaline Phosphatase < 5 L Magnesium Lactate Dehydrogenase Total Creatine Kinase CK-MB (CK-2) C-Reactive Protein Total Protein 4.6 L Albumin < 0.2 L Troponin T HDL Cholesterol Arterial Blood Glucose Urine WBC (Auto) Urine Creatinine Urine Total Protein Phenytoin Coronavirus (PCR) Crossmatch 06/09/20 06/10/20 06/10/20 17:32 00:00 05:49 WBC RBC Hgb Hct MCHC RDW Lymph % (Auto) Kay % (Auto) Eos % (Auto) Lymph # Kay # Lymph # (Auto) Kay # (Auto) Eos # (Auto) Seg Neutrophils % Seg Neuts % (Manual) Lymphocytes % (Manual) Seg Neutrophils # Seg Neutrophils # Man Lymphocytes # (Manual) Monocytes % (Manual) Eosinophils % (Manual) Monocytes # (Manual) Eosinophils # (Manual) D-Dimer Heparin Anti-Xa Level 0.19 L ABG pH POC ABG pCO2 POC ABG pO2 ABG pO2 ABG HCO3 ABG O2 Saturation ABG Base Excess ABG Hemoglobin ABG Oxyhemoglobin VBG pH ABG Sodium ABG Potassium ABG Glucose Oxyhemoglobin Sodium Potassium Chloride Carbon Dioxide BUN Creatinine Glucose POC Glucose 106 H 117 H Lactic Acid Calcium Ferritin AST Alkaline Phosphatase Magnesium Lactate Dehydrogenase Total Creatine Kinase CK-MB (CK-2) C-Reactive Protein Total Protein Albumin Troponin T HDL Cholesterol Arterial Blood Glucose Urine WBC (Auto) Urine Creatinine Urine Total Protein Phenytoin Coronavirus (PCR) Crossmatch 06/10/20 06/10/20 06/10/20 05:54 07:40 11:40 WBC RBC Hgb Hct MCHC RDW Lymph % (Auto) Kay % (Auto) Eos % (Auto) Lymph # Kay # Lymph # (Auto) Kay # (Auto) Eos # (Auto) Seg Neutrophils % Seg Neuts % (Manual) Lymphocytes % (Manual) Seg Neutrophils # Seg Neutrophils # Man Lymphocytes # (Manual) Monocytes % (Manual) Eosinophils % (Manual) Monocytes # (Manual) Eosinophils # (Manual) D-Dimer Heparin Anti-Xa Level ABG pH POC ABG pCO2 POC ABG pO2 ABG pO2 ABG HCO3 ABG O2 Saturation ABG Base Excess ABG Hemoglobin ABG Oxyhemoglobin VBG pH ABG Sodium ABG Potassium ABG Glucose Oxyhemoglobin Sodium 146 H D Potassium Chloride Carbon Dioxide 20 L BUN 99 H Creatinine 1.9 H Glucose 121 H POC Glucose 127 H 138 H Lactic Acid Calcium 8.2 L Ferritin AST Alkaline Phosphatase Magnesium Lactate Dehydrogenase Total Creatine Kinase CK-MB (CK-2) C-Reactive Protein Total Protein Albumin Troponin T HDL Cholesterol Arterial Blood Glucose Urine WBC (Auto) Urine Creatinine Urine Total Protein Phenytoin Coronavirus (PCR) Crossmatch 06/10/20 06/10/20 06/10/20 14:44 17:31 23:22 WBC RBC Hgb Hct MCHC RDW Lymph % (Auto) Kay % (Auto) Eos % (Auto) Lymph # Kay # Lymph # (Auto) Kay # (Auto) Eos # (Auto) Seg Neutrophils % Seg Neuts % (Manual) Lymphocytes % (Manual) Seg Neutrophils # Seg Neutrophils # Man Lymphocytes # (Manual) Monocytes % (Manual) Eosinophils % (Manual) Monocytes # (Manual) Eosinophils # (Manual) D-Dimer Heparin Anti-Xa Level 0.17 L ABG pH POC ABG pCO2 POC ABG pO2 ABG pO2 ABG HCO3 ABG O2 Saturation ABG Base Excess ABG Hemoglobin ABG Oxyhemoglobin VBG pH ABG Sodium ABG Potassium ABG Glucose Oxyhemoglobin Sodium Potassium Chloride Carbon Dioxide BUN Creatinine Glucose POC Glucose 128 H 114 H Lactic Acid Calcium Ferritin AST Alkaline Phosphatase Magnesium Lactate Dehydrogenase Total Creatine Kinase CK-MB (CK-2) C-Reactive Protein Total Protein Albumin Troponin T HDL Cholesterol Arterial Blood Glucose Urine WBC (Auto) Urine Creatinine Urine Total Protein Phenytoin Coronavirus (PCR) Crossmatch 06/11/20 06/11/20 06/11/20 00:22 03:45 03:45 WBC 14.6 H RBC 2.77 L Hgb 7.9 L Hct 24.3 L MCHC RDW 16.8 H Lymph % (Auto) 6.6 L Kay % (Auto) 8.5 H Eos % (Auto) Lymph # 1.0 L Kay # 1.2 H Lymph # (Auto) Kay # (Auto) Eos # (Auto) Seg Neutrophils % 82.9 H Seg Neuts % (Manual) Lymphocytes % (Manual) Seg Neutrophils # 12.1 H Seg Neutrophils # Man Lymphocytes # (Manual) Monocytes % (Manual) Eosinophils % (Manual) Monocytes # (Manual) Eosinophils # (Manual) D-Dimer Heparin Anti-Xa Level 0.24 L ABG pH POC ABG pCO2 POC ABG pO2 ABG pO2 ABG HCO3 ABG O2 Saturation ABG Base Excess ABG Hemoglobin ABG Oxyhemoglobin VBG pH ABG Sodium ABG Potassium ABG Glucose Oxyhemoglobin Sodium Potassium Chloride Carbon Dioxide 20 L BUN 88 H Creatinine 1.5 H Glucose 111 H POC Glucose Lactic Acid Calcium 8.2 L Ferritin AST Alkaline Phosphatase Magnesium Lactate Dehydrogenase Total Creatine Kinase CK-MB (CK-2) C-Reactive Protein Total Protein Albumin Troponin T HDL Cholesterol Arterial Blood Glucose Urine WBC (Auto) Urine Creatinine Urine Total Protein Phenytoin Coronavirus (PCR) Crossmatch 06/11/20 06/11/20 06/11/20 06:03 10:22 11:11 WBC RBC Hgb Hct MCHC RDW Lymph % (Auto) Kay % (Auto) Eos % (Auto) Lymph # Kay # Lymph # (Auto) Kay # (Auto) Eos # (Auto) Seg Neutrophils % Seg Neuts % (Manual) Lymphocytes % (Manual) Seg Neutrophils # Seg Neutrophils # Man Lymphocytes # (Manual) Monocytes % (Manual) Eosinophils % (Manual) Monocytes # (Manual) Eosinophils # (Manual) D-Dimer Heparin Anti-Xa Level 0.26 L ABG pH POC ABG pCO2 POC ABG pO2 ABG pO2 ABG HCO3 ABG O2 Saturation ABG Base Excess ABG Hemoglobin 9.6 L ABG Oxyhemoglobin VBG pH ABG Sodium ABG Potassium ABG Glucose Oxyhemoglobin Sodium Potassium Chloride Carbon Dioxide BUN Creatinine Glucose POC Glucose 114 H Lactic Acid Calcium Ferritin AST Alkaline Phosphatase Magnesium Lactate Dehydrogenase Total Creatine Kinase CK-MB (CK-2) C-Reactive Protein Total Protein Albumin Troponin T HDL Cholesterol Arterial Blood Glucose Urine WBC (Auto) Urine Creatinine Urine Total Protein Phenytoin Coronavirus (PCR) Crossmatch 06/11/20 06/11/20 06/12/20 12:24 17:24 00:21 WBC RBC Hgb Hct MCHC RDW Lymph % (Auto) Kay % (Auto) Eos % (Auto) Lymph # Kay # Lymph # (Auto) Kay # (Auto) Eos # (Auto) Seg Neutrophils % Seg Neuts % (Manual) Lymphocytes % (Manual) Seg Neutrophils # Seg Neutrophils # Man Lymphocytes # (Manual) Monocytes % (Manual) Eosinophils % (Manual) Monocytes # (Manual) Eosinophils # (Manual) D-Dimer Heparin Anti-Xa Level ABG pH POC ABG pCO2 POC ABG pO2 ABG pO2 ABG HCO3 ABG O2 Saturation ABG Base Excess ABG Hemoglobin ABG Oxyhemoglobin VBG pH ABG Sodium ABG Potassium ABG Glucose Oxyhemoglobin Sodium Potassium Chloride Carbon Dioxide BUN Creatinine Glucose POC Glucose 119 H 126 H 117 H Lactic Acid Calcium Ferritin AST Alkaline Phosphatase Magnesium Lactate Dehydrogenase Total Creatine Kinase CK-MB (CK-2) C-Reactive Protein Total Protein Albumin Troponin T HDL Cholesterol Arterial Blood Glucose Urine WBC (Auto) Urine Creatinine Urine Total Protein Phenytoin Coronavirus (PCR) Crossmatch 06/12/20 06/12/20 06/12/20 02:46 02:46 05:46 WBC 13.2 H RBC 2.83 L Hgb 8.3 L Hct 24.3 L MCHC RDW 16.6 H Lymph % (Auto) 6.2 L Kay % (Auto) 9.5 H Eos % (Auto) Lymph # 0.8 L Kay # 1.3 H Lymph # (Auto) Kay # (Auto) Eos # (Auto) Seg Neutrophils % 81.9 H Seg Neuts % (Manual) Lymphocytes % (Manual) Seg Neutrophils # 10.9 H Seg Neutrophils # Man Lymphocytes # (Manual) Monocytes % (Manual) Eosinophils % (Manual) Monocytes # (Manual) Eosinophils # (Manual) D-Dimer Heparin Anti-Xa Level ABG pH POC ABG pCO2 POC ABG pO2 ABG pO2 ABG HCO3 ABG O2 Saturation ABG Base Excess ABG Hemoglobin ABG Oxyhemoglobin VBG pH ABG Sodium ABG Potassium ABG Glucose Oxyhemoglobin Sodium Potassium 3.5 L Chloride Carbon Dioxide BUN 77 H Creatinine 1.3 H Glucose POC Glucose 132 H Lactic Acid Calcium 8.3 L Ferritin AST Alkaline Phosphatase Magnesium Lactate Dehydrogenase Total Creatine Kinase CK-MB (CK-2) C-Reactive Protein Total Protein Albumin Troponin T HDL Cholesterol Arterial Blood Glucose Urine WBC (Auto) Urine Creatinine Urine Total Protein Phenytoin Coronavirus (PCR) Crossmatch 06/12/20 06/12/20 06/12/20 09:20 12:16 17:48 WBC RBC Hgb Hct MCHC RDW Lymph % (Auto) Kay % (Auto) Eos % (Auto) Lymph # Kay # Lymph # (Auto) Kay # (Auto) Eos # (Auto) Seg Neutrophils % Seg Neuts % (Manual) Lymphocytes % (Manual) Seg Neutrophils # Seg Neutrophils # Man Lymphocytes # (Manual) Monocytes % (Manual) Eosinophils % (Manual) Monocytes # (Manual) Eosinophils # (Manual) D-Dimer Heparin Anti-Xa Level ABG pH POC ABG pCO2 POC ABG pO2 ABG pO2 91.1 H ABG HCO3 ABG O2 Saturation ABG Base Excess ABG Hemoglobin ABG Oxyhemoglobin VBG pH ABG Sodium ABG Potassium ABG Glucose Oxyhemoglobin 94.8 L Sodium Potassium Chloride Carbon Dioxide BUN Creatinine Glucose POC Glucose 167 H 182 H Lactic Acid Calcium Ferritin AST Alkaline Phosphatase Magnesium Lactate Dehydrogenase Total Creatine Kinase CK-MB (CK-2) C-Reactive Protein Total Protein Albumin Troponin T HDL Cholesterol Arterial Blood Glucose Urine WBC (Auto) Urine Creatinine Urine Total Protein Phenytoin Coronavirus (PCR) Crossmatch 06/13/20 06/13/20 06/13/20 00:08 05:37 09:09 WBC RBC Hgb Hct MCHC RDW Lymph % (Auto) Kay % (Auto) Eos % (Auto) Lymph # Kay # Lymph # (Auto) Kay # (Auto) Eos # (Auto) Seg Neutrophils % Seg Neuts % (Manual) Lymphocytes % (Manual) Seg Neutrophils # Seg Neutrophils # Man Lymphocytes # (Manual) Monocytes % (Manual) Eosinophils % (Manual) Monocytes # (Manual) Eosinophils # (Manual) D-Dimer Heparin Anti-Xa Level 0.86 H ABG pH POC ABG pCO2 POC ABG pO2 ABG pO2 ABG HCO3 ABG O2 Saturation ABG Base Excess ABG Hemoglobin ABG Oxyhemoglobin VBG pH ABG Sodium ABG Potassium ABG Glucose Oxyhemoglobin Sodium Potassium Chloride Carbon Dioxide BUN Creatinine Glucose POC Glucose 142 H 119 H Lactic Acid Calcium Ferritin AST Alkaline Phosphatase Magnesium Lactate Dehydrogenase Total Creatine Kinase CK-MB (CK-2) C-Reactive Protein Total Protein Albumin Troponin T HDL Cholesterol Arterial Blood Glucose Urine WBC (Auto) Urine Creatinine Urine Total Protein Phenytoin Coronavirus (PCR) Crossmatch 06/13/20 06/13/20 06/13/20 12:28 17:55 21:17 WBC RBC Hgb Hct MCHC RDW Lymph % (Auto) Kay % (Auto) Eos % (Auto) Lymph # Kay # Lymph # (Auto) Kay # (Auto) Eos # (Auto) Seg Neutrophils % Seg Neuts % (Manual) Lymphocytes % (Manual) Seg Neutrophils # Seg Neutrophils # Man Lymphocytes # (Manual) Monocytes % (Manual) Eosinophils % (Manual) Monocytes # (Manual) Eosinophils # (Manual) D-Dimer Heparin Anti-Xa Level ABG pH POC ABG pCO2 POC ABG pO2 ABG pO2 ABG HCO3 ABG O2 Saturation ABG Base Excess ABG Hemoglobin ABG Oxyhemoglobin VBG pH ABG Sodium ABG Potassium ABG Glucose Oxyhemoglobin Sodium Potassium Chloride Carbon Dioxide BUN 61 H Creatinine Glucose 131 H POC Glucose 165 H 174 H Lactic Acid Calcium Ferritin AST Alkaline Phosphatase Magnesium Lactate Dehydrogenase Total Creatine Kinase CK-MB (CK-2) C-Reactive Protein Total Protein Albumin Troponin T HDL Cholesterol Arterial Blood Glucose Urine WBC (Auto) Urine Creatinine Urine Total Protein Phenytoin Coronavirus (PCR) Crossmatch 06/13/20 06/13/20 06/14/20 21:17 23:50 05:34 WBC RBC Hgb Hct MCHC RDW Lymph % (Auto) Kay % (Auto) Eos % (Auto) Lymph # Kay # Lymph # (Auto) Kay # (Auto) Eos # (Auto) Seg Neutrophils % Seg Neuts % (Manual) Lymphocytes % (Manual) Seg Neutrophils # Seg Neutrophils # Man Lymphocytes # (Manual) Monocytes % (Manual) Eosinophils % (Manual) Monocytes # (Manual) Eosinophils # (Manual) D-Dimer Heparin Anti-Xa Level 0.72 H ABG pH POC ABG pCO2 POC ABG pO2 ABG pO2 ABG HCO3 ABG O2 Saturation ABG Base Excess ABG Hemoglobin ABG Oxyhemoglobin VBG pH ABG Sodium ABG Potassium ABG Glucose Oxyhemoglobin Sodium 146 H Potassium Chloride 107.6 H Carbon Dioxide BUN 61 H Creatinine 1.3 H Glucose 135 H POC Glucose 146 H Lactic Acid Calcium Ferritin AST Alkaline Phosphatase Magnesium Lactate Dehydrogenase Total Creatine Kinase CK-MB (CK-2) C-Reactive Protein Total Protein Albumin Troponin T HDL Cholesterol Arterial Blood Glucose Urine WBC (Auto) Urine Creatinine Urine Total Protein Phenytoin Coronavirus (PCR) Crossmatch 06/14/20 06/14/20 06/14/20 06:11 09:28 11:30 WBC RBC Hgb Hct MCHC RDW Lymph % (Auto) Kay % (Auto) Eos % (Auto) Lymph # Kay # Lymph # (Auto) Kay # (Auto) Eos # (Auto) Seg Neutrophils % Seg Neuts % (Manual) Lymphocytes % (Manual) Seg Neutrophils # Seg Neutrophils # Man Lymphocytes # (Manual) Monocytes % (Manual) Eosinophils % (Manual) Monocytes # (Manual) Eosinophils # (Manual) D-Dimer Heparin Anti-Xa Level 0.90 H ABG pH POC ABG pCO2 POC ABG pO2 ABG pO2 ABG HCO3 ABG O2 Saturation ABG Base Excess ABG Hemoglobin ABG Oxyhemoglobin VBG pH ABG Sodium ABG Potassium ABG Glucose Oxyhemoglobin Sodium Potassium Chloride Carbon Dioxide BUN Creatinine Glucose POC Glucose 141 H 186 H Lactic Acid Calcium Ferritin AST Alkaline Phosphatase Magnesium Lactate Dehydrogenase Total Creatine Kinase CK-MB (CK-2) C-Reactive Protein Total Protein Albumin Troponin T HDL Cholesterol Arterial Blood Glucose Urine WBC (Auto) Urine Creatinine Urine Total Protein Phenytoin Coronavirus (PCR) Crossmatch 06/14/20 06/14/20 06/14/20 16:07 18:16 23:51 WBC RBC Hgb Hct MCHC RDW Lymph % (Auto) Kay % (Auto) Eos % (Auto) Lymph # Kay # Lymph # (Auto) Kay # (Auto) Eos # (Auto) Seg Neutrophils % Seg Neuts % (Manual) Lymphocytes % (Manual) Seg Neutrophils # Seg Neutrophils # Man Lymphocytes # (Manual) Monocytes % (Manual) Eosinophils % (Manual) Monocytes # (Manual) Eosinophils # (Manual) D-Dimer Heparin Anti-Xa Level 0.82 H ABG pH POC ABG pCO2 POC ABG pO2 ABG pO2 ABG HCO3 ABG O2 Saturation ABG Base Excess ABG Hemoglobin ABG Oxyhemoglobin VBG pH ABG Sodium ABG Potassium ABG Glucose Oxyhemoglobin Sodium Potassium Chloride Carbon Dioxide BUN Creatinine Glucose POC Glucose 106 H 154 H Lactic Acid Calcium Ferritin AST Alkaline Phosphatase Magnesium Lactate Dehydrogenase Total Creatine Kinase CK-MB (CK-2) C-Reactive Protein Total Protein Albumin Troponin T HDL Cholesterol Arterial Blood Glucose Urine WBC (Auto) Urine Creatinine Urine Total Protein Phenytoin Coronavirus (PCR) Crossmatch 06/15/20 06/15/20 06/15/20 04:24 04:24 05:59 WBC RBC 2.75 L Hgb 7.9 L Hct 24.0 L MCHC RDW 16.4 H Lymph % (Auto) 12.9 L Kay % (Auto) 8.7 H Eos % (Auto) 4.6 H Lymph # 1.1 L Kay # Lymph # (Auto) Kay # (Auto) Eos # (Auto) Seg Neutrophils % 73.2 H Seg Neuts % (Manual) Lymphocytes % (Manual) Seg Neutrophils # Seg Neutrophils # Man Lymphocytes # (Manual) Monocytes % (Manual) Eosinophils % (Manual) Monocytes # (Manual) Eosinophils # (Manual) D-Dimer Heparin Anti-Xa Level ABG pH POC ABG pCO2 POC ABG pO2 ABG pO2 ABG HCO3 ABG O2 Saturation ABG Base Excess ABG Hemoglobin ABG Oxyhemoglobin VBG pH ABG Sodium ABG Potassium ABG Glucose Oxyhemoglobin Sodium Potassium 3.4 L Chloride Carbon Dioxide BUN 55 H Creatinine 1.3 H Glucose 142 H POC Glucose 131 H Lactic Acid Calcium Ferritin AST Alkaline Phosphatase Magnesium Lactate Dehydrogenase Total Creatine Kinase CK-MB (CK-2) C-Reactive Protein Total Protein Albumin Troponin T HDL Cholesterol Arterial Blood Glucose Urine WBC (Auto) Urine Creatinine Urine Total Protein Phenytoin Coronavirus (PCR) Crossmatch 06/15/20 06/15/2020 12:33 17:07 00:22 WBC RBC Hgb Hct MCHC RDW Lymph % (Auto) Kay % (Auto) Eos % (Auto) Lymph # Kay # Lymph # (Auto) Kay # (Auto) Eos # (Auto) Seg Neutrophils % Seg Neuts % (Manual) Lymphocytes % (Manual) Seg Neutrophils # Seg Neutrophils # Man Lymphocytes # (Manual) Monocytes % (Manual) Eosinophils % (Manual) Monocytes # (Manual) Eosinophils # (Manual) D-Dimer Heparin Anti-Xa Level 0.21 L ABG pH POC ABG pCO2 POC ABG pO2 ABG pO2 ABG HCO3 ABG O2 Saturation ABG Base Excess ABG Hemoglobin ABG Oxyhemoglobin VBG pH ABG Sodium ABG Potassium ABG Glucose Oxyhemoglobin Sodium Potassium Chloride Carbon Dioxide BUN Creatinine Glucose POC Glucose 180 H 185 H Lactic Acid Calcium Ferritin AST Alkaline Phosphatase Magnesium Lactate Dehydrogenase Total Creatine Kinase CK-MB (CK-2) C-Reactive Protein Total Protein Albumin Troponin T HDL Cholesterol Arterial Blood Glucose Urine WBC (Auto) Urine Creatinine Urine Total Protein Phenytoin Coronavirus (PCR) Crossmatch 06/16/20 06/16/20 06/16/20 01:45 08:06 09:15 WBC RBC Hgb Hct MCHC RDW Lymph % (Auto) Kay % (Auto) Eos % (Auto) Lymph # Kay # Lymph # (Auto) Kay # (Auto) Eos # (Auto) Seg Neutrophils % Seg Neuts % (Manual) Lymphocytes % (Manual) Seg Neutrophils # Seg Neutrophils # Man Lymphocytes # (Manual) Monocytes % (Manual) Eosinophils % (Manual) Monocytes # (Manual) Eosinophils # (Manual) D-Dimer Heparin Anti-Xa Level ABG pH POC ABG pCO2 POC ABG pO2 ABG pO2 ABG HCO3 ABG O2 Saturation ABG Base Excess ABG Hemoglobin ABG Oxyhemoglobin VBG pH ABG Sodium ABG Potassium ABG Glucose Oxyhemoglobin Sodium Potassium Chloride Carbon Dioxide BUN 49 H Creatinine Glucose 154 H POC Glucose 140 H 171 H Lactic Acid Calcium Ferritin AST Alkaline Phosphatase Magnesium Lactate Dehydrogenase Total Creatine Kinase CK-MB (CK-2) C-Reactive Protein Total Protein Albumin Troponin T HDL Cholesterol Arterial Blood Glucose Urine WBC (Auto) Urine Creatinine Urine Total Protein Phenytoin Coronavirus (PCR) Crossmatch 06/16/20 06/16/20 06/16/20 10:46 12:33 17:54 WBC RBC Hgb Hct MCHC RDW Lymph % (Auto) Kay % (Auto) Eos % (Auto) Lymph # Kay # Lymph # (Auto) Kay # (Auto) Eos # (Auto) Seg Neutrophils % Seg Neuts % (Manual) Lymphocytes % (Manual) Seg Neutrophils # Seg Neutrophils # Man Lymphocytes # (Manual) Monocytes % (Manual) Eosinophils % (Manual) Monocytes # (Manual) Eosinophils # (Manual) D-Dimer Heparin Anti-Xa Level 0.12 L ABG pH POC ABG pCO2 POC ABG pO2 ABG pO2 ABG HCO3 ABG O2 Saturation ABG Base Excess ABG Hemoglobin ABG Oxyhemoglobin VBG pH ABG Sodium ABG Potassium ABG Glucose Oxyhemoglobin Sodium Potassium Chloride Carbon Dioxide BUN Creatinine Glucose POC Glucose 166 H 151 H Lactic Acid Calcium Ferritin AST Alkaline Phosphatase Magnesium Lactate Dehydrogenase Total Creatine Kinase CK-MB (CK-2) C-Reactive Protein Total Protein Albumin Troponin T HDL Cholesterol Arterial Blood Glucose Urine WBC (Auto) Urine Creatinine Urine Total Protein Phenytoin Coronavirus (PCR) Crossmatch 06/16/20 06/17/20 06/17/20 18:47 00:00 02:19 WBC RBC Hgb Hct MCHC RDW Lymph % (Auto) Kay % (Auto) Eos % (Auto) Lymph # Kay # Lymph # (Auto) Kay # (Auto) Eos # (Auto) Seg Neutrophils % Seg Neuts % (Manual) Lymphocytes % (Manual) Seg Neutrophils # Seg Neutrophils # Man Lymphocytes # (Manual) Monocytes % (Manual) Eosinophils % (Manual) Monocytes # (Manual) Eosinophils # (Manual) D-Dimer Heparin Anti-Xa Level 0.73 H 0.77 H ABG pH POC ABG pCO2 POC ABG pO2 ABG pO2 ABG HCO3 ABG O2 Saturation ABG Base Excess ABG Hemoglobin ABG Oxyhemoglobin VBG pH ABG Sodium ABG Potassium ABG Glucose Oxyhemoglobin Sodium Potassium Chloride Carbon Dioxide BUN Creatinine Glucose POC Glucose 139 H Lactic Acid Calcium Ferritin AST Alkaline Phosphatase Magnesium Lactate Dehydrogenase Total Creatine Kinase CK-MB (CK-2) C-Reactive Protein Total Protein Albumin Troponin T HDL Cholesterol Arterial Blood Glucose Urine WBC (Auto) Urine Creatinine Urine Total Protein Phenytoin Coronavirus (PCR) Crossmatch 06/17/20 06/17/20 06/17/20 06:07 11:42 16:43 WBC RBC Hgb Hct MCHC RDW Lymph % (Auto) Kay % (Auto) Eos % (Auto) Lymph # Kay # Lymph # (Auto) Kay # (Auto) Eos # (Auto) Seg Neutrophils % Seg Neuts % (Manual) Lymphocytes % (Manual) Seg Neutrophils # Seg Neutrophils # Man Lymphocytes # (Manual) Monocytes % (Manual) Eosinophils % (Manual) Monocytes # (Manual) Eosinophils # (Manual) D-Dimer Heparin Anti-Xa Level 0.73 H ABG pH POC ABG pCO2 POC ABG pO2 ABG pO2 ABG HCO3 ABG O2 Saturation ABG Base Excess ABG Hemoglobin ABG Oxyhemoglobin VBG pH ABG Sodium ABG Potassium ABG Glucose Oxyhemoglobin Sodium Potassium Chloride Carbon Dioxide BUN Creatinine Glucose POC Glucose 169 H 169 H Lactic Acid Calcium Ferritin AST Alkaline Phosphatase Magnesium Lactate Dehydrogenase Total Creatine Kinase CK-MB (CK-2) C-Reactive Protein Total Protein Albumin Troponin T HDL Cholesterol Arterial Blood Glucose Urine WBC (Auto) Urine Creatinine Urine Total Protein Phenytoin Coronavirus (PCR) Crossmatch 06/17/20 06/17/20 06/17/20 18:18 23:08 23:16 WBC RBC Hgb Hct MCHC RDW Lymph % (Auto) Kay % (Auto) Eos % (Auto) Lymph # Kay # Lymph # (Auto) Kay # (Auto) Eos # (Auto) Seg Neutrophils % Seg Neuts % (Manual) Lymphocytes % (Manual) Seg Neutrophils # Seg Neutrophils # Man Lymphocytes # (Manual) Monocytes % (Manual) Eosinophils % (Manual) Monocytes # (Manual) Eosinophils # (Manual) D-Dimer Heparin Anti-Xa Level 0.71 H ABG pH POC ABG pCO2 POC ABG pO2 ABG pO2 ABG HCO3 ABG O2 Saturation ABG Base Excess ABG Hemoglobin ABG Oxyhemoglobin VBG pH ABG Sodium ABG Potassium ABG Glucose Oxyhemoglobin Sodium Potassium Chloride Carbon Dioxide BUN Creatinine Glucose POC Glucose 159 H 134 H Lactic Acid Calcium Ferritin AST Alkaline Phosphatase Magnesium Lactate Dehydrogenase Total Creatine Kinase CK-MB (CK-2) C-Reactive Protein Total Protein Albumin Troponin T HDL Cholesterol Arterial Blood Glucose Urine WBC (Auto) Urine Creatinine Urine Total Protein Phenytoin Coronavirus (PCR) Crossmatch 06/18/20 06/18/20 06/18/20 04:42 05:52 11:50 WBC RBC Hgb Hct MCHC RDW Lymph % (Auto) Kay % (Auto) Eos % (Auto) Lymph # Kay # Lymph # (Auto) Kay # (Auto) Eos # (Auto) Seg Neutrophils % Seg Neuts % (Manual) Lymphocytes % (Manual) Seg Neutrophils # Seg Neutrophils # Man Lymphocytes # (Manual) Monocytes % (Manual) Eosinophils % (Manual) Monocytes # (Manual) Eosinophils # (Manual) D-Dimer Heparin Anti-Xa Level ABG pH POC ABG pCO2 POC ABG pO2 ABG pO2 ABG HCO3 ABG O2 Saturation ABG Base Excess ABG Hemoglobin ABG Oxyhemoglobin VBG pH ABG Sodium ABG Potassium ABG Glucose Oxyhemoglobin Sodium Potassium Chloride Carbon Dioxide BUN 44 H Creatinine Glucose 115 H POC Glucose 171 H 167 H Lactic Acid Calcium Ferritin AST Alkaline Phosphatase Magnesium Lactate Dehydrogenase Total Creatine Kinase CK-MB (CK-2) C-Reactive Protein Total Protein Albumin Troponin T HDL Cholesterol Arterial Blood Glucose Urine WBC (Auto) Urine Creatinine Urine Total Protein Phenytoin Coronavirus (PCR) Crossmatch 06/18/20 06/19/20 06/19/20 23:46 05:48 07:52 WBC RBC Hgb Hct MCHC RDW Lymph % (Auto) Kay % (Auto) Eos % (Auto) Lymph # Kay # Lymph # (Auto) Kay # (Auto) Eos # (Auto) Seg Neutrophils % Seg Neuts % (Manual) Lymphocytes % (Manual) Seg Neutrophils # Seg Neutrophils # Man Lymphocytes # (Manual) Monocytes % (Manual) Eosinophils % (Manual) Monocytes # (Manual) Eosinophils # (Manual) D-Dimer Heparin Anti-Xa Level ABG pH POC ABG pCO2 POC ABG pO2 ABG pO2 ABG HCO3 ABG O2 Saturation ABG Base Excess ABG Hemoglobin ABG Oxyhemoglobin VBG pH ABG Sodium ABG Potassium ABG Glucose Oxyhemoglobin Sodium Potassium Chloride Carbon Dioxide BUN Creatinine Glucose POC Glucose 130 H 207 H 175 H Lactic Acid Calcium Ferritin AST Alkaline Phosphatase Magnesium Lactate Dehydrogenase Total Creatine Kinase CK-MB (CK-2) C-Reactive Protein Total Protein Albumin Troponin T HDL Cholesterol Arterial Blood Glucose Urine WBC (Auto) Urine Creatinine Urine Total Protein Phenytoin Coronavirus (PCR) Crossmatch 06/19/20 06/19/20 06/20/20 11:42 22:54 05:17 WBC RBC Hgb Hct MCHC RDW Lymph % (Auto) Kay % (Auto) Eos % (Auto) Lymph # Kay # Lymph # (Auto) Kay # (Auto) Eos # (Auto) Seg Neutrophils % Seg Neuts % (Manual) Lymphocytes % (Manual) Seg Neutrophils # Seg Neutrophils # Man Lymphocytes # (Manual) Monocytes % (Manual) Eosinophils % (Manual) Monocytes # (Manual) Eosinophils # (Manual) D-Dimer Heparin Anti-Xa Level ABG pH POC ABG pCO2 POC ABG pO2 ABG pO2 ABG HCO3 ABG O2 Saturation ABG Base Excess ABG Hemoglobin ABG Oxyhemoglobin VBG pH ABG Sodium ABG Potassium ABG Glucose Oxyhemoglobin Sodium Potassium Chloride Carbon Dioxide BUN Creatinine Glucose POC Glucose 166 H 135 H 218 H Lactic Acid Calcium Ferritin AST Alkaline Phosphatase Magnesium Lactate Dehydrogenase Total Creatine Kinase CK-MB (CK-2) C-Reactive Protein Total Protein Albumin Troponin T HDL Cholesterol Arterial Blood Glucose Urine WBC (Auto) Urine Creatinine Urine Total Protein Phenytoin Coronavirus (PCR) Crossmatch 06/20/20 06/20/20 06/20/20 12:04 16:25 16:35 WBC RBC Hgb Hct MCHC RDW Lymph % (Auto) Kay % (Auto) Eos % (Auto) Lymph # Kay # Lymph # (Auto) Kay # (Auto) Eos # (Auto) Seg Neutrophils % Seg Neuts % (Manual) Lymphocytes % (Manual) Seg Neutrophils # Seg Neutrophils # Man Lymphocytes # (Manual) Monocytes % (Manual) Eosinophils % (Manual) Monocytes # (Manual) Eosinophils # (Manual) D-Dimer Heparin Anti-Xa Level ABG pH POC ABG pCO2 POC ABG pO2 ABG pO2 59.6 L ABG HCO3 28.7 H ABG O2 Saturation 93.5 L ABG Base Excess 3.4 H ABG Hemoglobin 7.2 L ABG Oxyhemoglobin VBG pH ABG Sodium ABG Potassium ABG Glucose Oxyhemoglobin 91.3 L Sodium Potassium Chloride Carbon Dioxide BUN Creatinine Glucose POC Glucose 194 H 137 H Lactic Acid Calcium Ferritin AST Alkaline Phosphatase Magnesium Lactate Dehydrogenase Total Creatine Kinase CK-MB (CK-2) C-Reactive Protein Total Protein Albumin Troponin T HDL Cholesterol Arterial Blood Glucose Urine WBC (Auto) Urine Creatinine Urine Total Protein Phenytoin Coronavirus (PCR) Crossmatch 06/20/20 06/21/20 06/21/20 23:59 06:25 12:01 WBC RBC Hgb Hct MCHC RDW Lymph % (Auto) Kay % (Auto) Eos % (Auto) Lymph # Kay # Lymph # (Auto) Kay # (Auto) Eos # (Auto) Seg Neutrophils % Seg Neuts % (Manual) Lymphocytes % (Manual) Seg Neutrophils # Seg Neutrophils # Man Lymphocytes # (Manual) Monocytes % (Manual) Eosinophils % (Manual) Monocytes # (Manual) Eosinophils # (Manual) D-Dimer Heparin Anti-Xa Level ABG pH POC ABG pCO2 POC ABG pO2 ABG pO2 ABG HCO3 ABG O2 Saturation ABG Base Excess ABG Hemoglobin ABG Oxyhemoglobin VBG pH ABG Sodium ABG Potassium ABG Glucose Oxyhemoglobin Sodium Potassium Chloride Carbon Dioxide BUN Creatinine Glucose POC Glucose 156 H 177 H 195 H Lactic Acid Calcium Ferritin AST Alkaline Phosphatase Magnesium Lactate Dehydrogenase Total Creatine Kinase CK-MB (CK-2) C-Reactive Protein Total Protein Albumin Troponin T HDL Cholesterol Arterial Blood Glucose Urine WBC (Auto) Urine Creatinine Urine Total Protein Phenytoin Coronavirus (PCR) Crossmatch 06/21/20 06/21/20 06/22/20 17:04 21:51 05:06 WBC RBC Hgb Hct MCHC RDW Lymph % (Auto) Kay % (Auto) Eos % (Auto) Lymph # Kay # Lymph # (Auto) Kay # (Auto) Eos # (Auto) Seg Neutrophils % Seg Neuts % (Manual) Lymphocytes % (Manual) Seg Neutrophils # Seg Neutrophils # Man Lymphocytes # (Manual) Monocytes % (Manual) Eosinophils % (Manual) Monocytes # (Manual) Eosinophils # (Manual) D-Dimer Heparin Anti-Xa Level ABG pH POC ABG pCO2 POC ABG pO2 ABG pO2 ABG HCO3 ABG O2 Saturation ABG Base Excess ABG Hemoglobin ABG Oxyhemoglobin VBG pH ABG Sodium ABG Potassium ABG Glucose Oxyhemoglobin Sodium Potassium Chloride Carbon Dioxide BUN Creatinine Glucose POC Glucose 156 H 154 H 167 H Lactic Acid Calcium Ferritin AST Alkaline Phosphatase Magnesium Lactate Dehydrogenase Total Creatine Kinase CK-MB (CK-2) C-Reactive Protein Total Protein Albumin Troponin T HDL Cholesterol Arterial Blood Glucose Urine WBC (Auto) Urine Creatinine Urine Total Protein Phenytoin Coronavirus (PCR) Crossmatch 06/22/20 06/22/20 06/22/20 11:20 15:27 16:58 WBC RBC Hgb Hct MCHC RDW Lymph % (Auto) Kay % (Auto) Eos % (Auto) Lymph # Kay # Lymph # (Auto) Kay # (Auto) Eos # (Auto) Seg Neutrophils % Seg Neuts % (Manual) Lymphocytes % (Manual) Seg Neutrophils # Seg Neutrophils # Man Lymphocytes # (Manual) Monocytes % (Manual) Eosinophils % (Manual) Monocytes # (Manual) Eosinophils # (Manual) D-Dimer Heparin Anti-Xa Level ABG pH 7.206 L POC ABG pCO2 79.9 H POC ABG pO2 ABG pO2 ABG HCO3 ABG O2 Saturation ABG Base Excess ABG Hemoglobin 8.3 L ABG Oxyhemoglobin VBG pH ABG Sodium ABG Potassium ABG Glucose Oxyhemoglobin Sodium Potassium Chloride Carbon Dioxide BUN Creatinine Glucose POC Glucose 181 H 230 H Lactic Acid Calcium Ferritin AST Alkaline Phosphatase Magnesium Lactate Dehydrogenase Total Creatine Kinase CK-MB (CK-2) C-Reactive Protein Total Protein Albumin Troponin T HDL Cholesterol Arterial Blood Glucose Urine WBC (Auto) Urine Creatinine Urine Total Protein Phenytoin Coronavirus (PCR) Crossmatch 06/22/20 06/23/20 06/23/20 22:26 05:49 05:49 WBC RBC 2.58 L Hgb 7.4 L Hct 23.2 L MCHC RDW 17.0 H Lymph % (Auto) Kay % (Auto) 11.2 H Eos % (Auto) Lymph # 1.0 L Kay # Lymph # (Auto) Kay # (Auto) Eos # (Auto) Seg Neutrophils % Seg Neuts % (Manual) Lymphocytes % (Manual) Seg Neutrophils # Seg Neutrophils # Man Lymphocytes # (Manual) Monocytes % (Manual) Eosinophils % (Manual) Monocytes # (Manual) Eosinophils # (Manual) D-Dimer Heparin Anti-Xa Level ABG pH POC ABG pCO2 POC ABG pO2 ABG pO2 ABG HCO3 ABG O2 Saturation ABG Base Excess ABG Hemoglobin ABG Oxyhemoglobin VBG pH ABG Sodium ABG Potassium ABG Glucose Oxyhemoglobin Sodium Potassium Chloride Carbon Dioxide BUN 68 H Creatinine 2.4 H Glucose 198 H POC Glucose 195 H Lactic Acid Calcium Ferritin AST Alkaline Phosphatase Magnesium Lactate Dehydrogenase Total Creatine Kinase CK-MB (CK-2) C-Reactive Protein Total Protein Albumin Troponin T HDL Cholesterol Arterial Blood Glucose Urine WBC (Auto) Urine Creatinine Urine Total Protein Phenytoin Coronavirus (PCR) Crossmatch 06/23/20 06/23/20 06/23/20 05:50 12:29 12:34 WBC RBC Hgb Hct MCHC RDW Lymph % (Auto) Kay % (Auto) Eos % (Auto) Lymph # Kay # Lymph # (Auto) Kay # (Auto) Eos # (Auto) Seg Neutrophils % Seg Neuts % (Manual) Lymphocytes % (Manual) Seg Neutrophils # Seg Neutrophils # Man Lymphocytes # (Manual) Monocytes % (Manual) Eosinophils % (Manual) Monocytes # (Manual) Eosinophils # (Manual) D-Dimer Heparin Anti-Xa Level ABG pH POC ABG pCO2 54.7 H POC ABG pO2 68.8 L ABG pO2 ABG HCO3 ABG O2 Saturation ABG Base Excess ABG Hemoglobin 9.8 L ABG Oxyhemoglobin 92.6 L VBG pH ABG Sodium ABG Potassium ABG Glucose Oxyhemoglobin Sodium Potassium Chloride Carbon Dioxide BUN Creatinine Glucose POC Glucose 202 H 218 H Lactic Acid Calcium Ferritin AST Alkaline Phosphatase Magnesium Lactate Dehydrogenase Total Creatine Kinase CK-MB (CK-2) C-Reactive Protein Total Protein Albumin Troponin T HDL Cholesterol Arterial Blood Glucose Urine WBC (Auto) Urine Creatinine Urine Total Protein Phenytoin Coronavirus (PCR) Crossmatch 06/23/20 06/23/20 06/24/20 16:02 22:22 01:06 WBC RBC Hgb Hct MCHC RDW Lymph % (Auto) Kay % (Auto) Eos % (Auto) Lymph # Kay # Lymph # (Auto) Kay # (Auto) Eos # (Auto) Seg Neutrophils % Seg Neuts % (Manual) Lymphocytes % (Manual) Seg Neutrophils # Seg Neutrophils # Man Lymphocytes # (Manual) Monocytes % (Manual) Eosinophils % (Manual) Monocytes # (Manual) Eosinophils # (Manual) D-Dimer Heparin Anti-Xa Level ABG pH POC ABG pCO2 POC ABG pO2 ABG pO2 ABG HCO3 ABG O2 Saturation ABG Base Excess ABG Hemoglobin ABG Oxyhemoglobin VBG pH ABG Sodium ABG Potassium ABG Glucose Oxyhemoglobin Sodium Potassium Chloride Carbon Dioxide BUN Creatinine Glucose POC Glucose 190 H 166 H 171 H Lactic Acid Calcium Ferritin AST Alkaline Phosphatase Magnesium Lactate Dehydrogenase Total Creatine Kinase CK-MB (CK-2) C-Reactive Protein Total Protein Albumin Troponin T HDL Cholesterol Arterial Blood Glucose Urine WBC (Auto) Urine Creatinine Urine Total Protein Phenytoin Coronavirus (PCR) Crossmatch 06/24/20 06/24/20 06/24/20 04:48 05:35 11:48 WBC RBC Hgb Hct MCHC RDW Lymph % (Auto) Kay % (Auto) Eos % (Auto) Lymph # Kay # Lymph # (Auto) Kay # (Auto) Eos # (Auto) Seg Neutrophils % Seg Neuts % (Manual) Lymphocytes % (Manual) Seg Neutrophils # Seg Neutrophils # Man Lymphocytes # (Manual) Monocytes % (Manual) Eosinophils % (Manual) Monocytes # (Manual) Eosinophils # (Manual) D-Dimer Heparin Anti-Xa Level ABG pH POC ABG pCO2 POC ABG pO2 ABG pO2 ABG HCO3 ABG O2 Saturation ABG Base Excess ABG Hemoglobin ABG Oxyhemoglobin VBG pH ABG Sodium ABG Potassium ABG Glucose Oxyhemoglobin Sodium Potassium Chloride Carbon Dioxide BUN 75 H Creatinine 2.6 H Glucose 179 H POC Glucose 172 H 153 H Lactic Acid Calcium Ferritin AST Alkaline Phosphatase Magnesium Lactate Dehydrogenase Total Creatine Kinase CK-MB (CK-2) C-Reactive Protein Total Protein Albumin Troponin T HDL Cholesterol Arterial Blood Glucose Urine WBC (Auto) Urine Creatinine Urine Total Protein Phenytoin Coronavirus (PCR) Crossmatch 06/24/20 06/24/20 06/25/20 16:38 21:52 12:00 WBC RBC Hgb Hct MCHC RDW Lymph % (Auto) Kay % (Auto) Eos % (Auto) Lymph # Kay # Lymph # (Auto) Kay # (Auto) Eos # (Auto) Seg Neutrophils % Seg Neuts % (Manual) Lymphocytes % (Manual) Seg Neutrophils # Seg Neutrophils # Man Lymphocytes # (Manual) Monocytes % (Manual) Eosinophils % (Manual) Monocytes # (Manual) Eosinophils # (Manual) D-Dimer Heparin Anti-Xa Level ABG pH POC ABG pCO2 POC ABG pO2 ABG pO2 ABG HCO3 ABG O2 Saturation ABG Base Excess ABG Hemoglobin ABG Oxyhemoglobin VBG pH ABG Sodium ABG Potassium ABG Glucose Oxyhemoglobin Sodium Potassium Chloride Carbon Dioxide BUN Creatinine Glucose POC Glucose 123 H 115 H 203 H Lactic Acid Calcium Ferritin AST Alkaline Phosphatase Magnesium Lactate Dehydrogenase Total Creatine Kinase CK-MB (CK-2) C-Reactive Protein Total Protein Albumin Troponin T HDL Cholesterol Arterial Blood Glucose Urine WBC (Auto) Urine Creatinine Urine Total Protein Phenytoin Coronavirus (PCR) Crossmatch 06/25/20 06/25/20 06/25/20 15:43 16:37 23:02 WBC RBC Hgb Hct MCHC RDW Lymph % (Auto) Kay % (Auto) Eos % (Auto) Lymph # Kay # Lymph # (Auto) Kay # (Auto) Eos # (Auto) Seg Neutrophils % Seg Neuts % (Manual) Lymphocytes % (Manual) Seg Neutrophils # Seg Neutrophils # Man Lymphocytes # (Manual) Monocytes % (Manual) Eosinophils % (Manual) Monocytes # (Manual) Eosinophils # (Manual) D-Dimer Heparin Anti-Xa Level ABG pH POC ABG pCO2 POC ABG pO2 ABG pO2 ABG HCO3 ABG O2 Saturation ABG Base Excess ABG Hemoglobin ABG Oxyhemoglobin VBG pH ABG Sodium ABG Potassium ABG Glucose Oxyhemoglobin Sodium Potassium Chloride Carbon Dioxide BUN 71 H Creatinine 1.8 H Glucose 170 H POC Glucose 191 H 126 H Lactic Acid Calcium 8.2 L Ferritin AST Alkaline Phosphatase Magnesium Lactate Dehydrogenase Total Creatine Kinase CK-MB (CK-2) C-Reactive Protein Total Protein Albumin Troponin T HDL Cholesterol Arterial Blood Glucose Urine WBC (Auto) Urine Creatinine Urine Total Protein Phenytoin Coronavirus (PCR) Crossmatch 06/26/20 06/26/20 06/26/20 06:34 06:34 09:27 WBC RBC 2.41 L Hgb 6.9 L Hct 21.5 L MCHC RDW 16.7 H Lymph % (Auto) 10.9 L Kay % (Auto) 9.6 H Eos % (Auto) Lymph # 0.7 L Kay # Lymph # (Auto) Kay # (Auto) Eos # (Auto) Seg Neutrophils % 75.4 H Seg Neuts % (Manual) Lymphocytes % (Manual) Seg Neutrophils # Seg Neutrophils # Man Lymphocytes # (Manual) Monocytes % (Manual) Eosinophils % (Manual) Monocytes # (Manual) Eosinophils # (Manual) D-Dimer Heparin Anti-Xa Level ABG pH POC ABG pCO2 POC ABG pO2 ABG pO2 ABG HCO3 ABG O2 Saturation ABG Base Excess ABG Hemoglobin ABG Oxyhemoglobin VBG pH ABG Sodium ABG Potassium ABG Glucose Oxyhemoglobin Sodium Potassium Chloride Carbon Dioxide BUN 77 H Creatinine 1.9 H Glucose 190 H POC Glucose Lactic Acid Calcium Ferritin AST Alkaline Phosphatase Magnesium Lactate Dehydrogenase Total Creatine Kinase CK-MB (CK-2) C-Reactive Protein Total Protein Albumin Troponin T HDL Cholesterol Arterial Blood Glucose Urine WBC (Auto) Urine Creatinine Urine Total Protein Phenytoin Coronavirus (PCR) Crossmatch See Detail 06/26/20 06/26/20 06/26/20 12:15 16:28 17:28 WBC RBC Hgb Hct MCHC RDW Lymph % (Auto) Kay % (Auto) Eos % (Auto) Lymph # Kay # Lymph # (Auto) Kay # (Auto) Eos # (Auto) Seg Neutrophils % Seg Neuts % (Manual) Lymphocytes % (Manual) Seg Neutrophils # Seg Neutrophils # Man Lymphocytes # (Manual) Monocytes % (Manual) Eosinophils % (Manual) Monocytes # (Manual) Eosinophils # (Manual) D-Dimer Heparin Anti-Xa Level ABG pH POC ABG pCO2 POC ABG pO2 ABG pO2 ABG HCO3 ABG O2 Saturation ABG Base Excess ABG Hemoglobin ABG Oxyhemoglobin VBG pH ABG Sodium ABG Potassium ABG Glucose Oxyhemoglobin Sodium Potassium Chloride Carbon Dioxide BUN Creatinine Glucose POC Glucose 187 H 149 H 189 H Lactic Acid Calcium Ferritin AST Alkaline Phosphatase Magnesium Lactate Dehydrogenase Total Creatine Kinase CK-MB (CK-2) C-Reactive Protein Total Protein Albumin Troponin T HDL Cholesterol Arterial Blood Glucose Urine WBC (Auto) Urine Creatinine Urine Total Protein Phenytoin Coronavirus (PCR) Crossmatch 06/26/20 06/26/20 06/26/20 18:30 18:30 18:30 WBC RBC 2.87 L Hgb 8.2 L Hct 25.9 L MCHC RDW 17.8 H Lymph % (Auto) Kay % (Auto) Eos % (Auto) Lymph # Kay # Lymph # (Auto) Kay # (Auto) Eos # (Auto) Seg Neutrophils % Seg Neuts % (Manual) 83.0 H Lymphocytes % (Manual) 8.0 L Seg Neutrophils # Seg Neutrophils # Man Lymphocytes # (Manual) 0.6 L Monocytes % (Manual) Eosinophils % (Manual) Monocytes # (Manual) Eosinophils # (Manual) D-Dimer Heparin Anti-Xa Level ABG pH POC ABG pCO2 POC ABG pO2 ABG pO2 ABG HCO3 ABG O2 Saturation ABG Base Excess ABG Hemoglobin ABG Oxyhemoglobin VBG pH ABG Sodium ABG Potassium ABG Glucose Oxyhemoglobin Sodium Potassium Chloride Carbon Dioxide BUN 80 H Creatinine 2.1 H Glucose 260 H POC Glucose Lactic Acid 4.30 H* Calcium 8.3 L Ferritin AST Alkaline Phosphatase Magnesium Lactate Dehydrogenase Total Creatine Kinase CK-MB (CK-2) C-Reactive Protein Total Protein Albumin Troponin T HDL Cholesterol Arterial Blood Glucose Urine WBC (Auto) Urine Creatinine Urine Total Protein Phenytoin Coronavirus (PCR) Crossmatch 06/26/20 06/27/20 06/27/20 18:50 01:00 04:29 WBC RBC Hgb Hct MCHC RDW Lymph % (Auto) Kay % (Auto) Eos % (Auto) Lymph # Kay # Lymph # (Auto) Kay # (Auto) Eos # (Auto) Seg Neutrophils % Seg Neuts % (Manual) Lymphocytes % (Manual) Seg Neutrophils # Seg Neutrophils # Man Lymphocytes # (Manual) Monocytes % (Manual) Eosinophils % (Manual) Monocytes # (Manual) Eosinophils # (Manual) D-Dimer Heparin Anti-Xa Level ABG pH 7.296 L POC ABG pCO2 POC ABG pO2 ABG pO2 116.5 H 200.5 H ABG HCO3 28.4 H ABG O2 Saturation 99.3 H ABG Base Excess 3.7 H ABG Hemoglobin 5.6 L ABG Oxyhemoglobin VBG pH ABG Sodium ABG Potassium ABG Glucose Oxyhemoglobin Sodium Potassium Chloride Carbon Dioxide BUN Creatinine Glucose POC Glucose 123 H Lactic Acid Calcium Ferritin AST Alkaline Phosphatase Magnesium Lactate Dehydrogenase Total Creatine Kinase CK-MB (CK-2) C-Reactive Protein Total Protein Albumin Troponin T HDL Cholesterol Arterial Blood Glucose Urine WBC (Auto) Urine Creatinine Urine Total Protein Phenytoin Coronavirus (PCR) Crossmatch 06/27/20 06/27/20 06/27/20 05:00 05:00 05:00 WBC RBC 2.75 L Hgb 7.9 L Hct 24.3 L MCHC RDW 17.1 H Lymph % (Auto) 8.5 L Kay % (Auto) 12.6 H Eos % (Auto) Lymph # 0.7 L Kay # 1.0 H Lymph # (Auto) Kay # (Auto) Eos # (Auto) Seg Neutrophils % 77.5 H Seg Neuts % (Manual) Lymphocytes % (Manual) Seg Neutrophils # Seg Neutrophils # Man Lymphocytes # (Manual) Monocytes % (Manual) Eosinophils % (Manual) Monocytes # (Manual) Eosinophils # (Manual) D-Dimer Heparin Anti-Xa Level ABG pH POC ABG pCO2 POC ABG pO2 ABG pO2 ABG HCO3 ABG O2 Saturation ABG Base Excess ABG Hemoglobin ABG Oxyhemoglobin VBG pH ABG Sodium ABG Potassium ABG Glucose Oxyhemoglobin Sodium Potassium Chloride Carbon Dioxide BUN 80 H Creatinine 2.0 H Glucose 129 H POC Glucose Lactic Acid 0.60 L Calcium 7.9 L Ferritin AST Alkaline Phosphatase Magnesium Lactate Dehydrogenase Total Creatine Kinase CK-MB (CK-2) C-Reactive Protein Total Protein Albumin Troponin T HDL Cholesterol Arterial Blood Glucose Urine WBC (Auto) Urine Creatinine Urine Total Protein Phenytoin Coronavirus (PCR) Crossmatch 06/27/20 06/27/20 06/27/20 05:23 13:46 17:25 WBC RBC Hgb Hct MCHC RDW Lymph % (Auto) Kay % (Auto) Eos % (Auto) Lymph # Kay # Lymph # (Auto) Kay # (Auto) Eos # (Auto) Seg Neutrophils % Seg Neuts % (Manual) Lymphocytes % (Manual) Seg Neutrophils # Seg Neutrophils # Man Lymphocytes # (Manual) Monocytes % (Manual) Eosinophils % (Manual) Monocytes # (Manual) Eosinophils # (Manual) D-Dimer Heparin Anti-Xa Level ABG pH POC ABG pCO2 POC ABG pO2 ABG pO2 ABG HCO3 ABG O2 Saturation ABG Base Excess ABG Hemoglobin ABG Oxyhemoglobin VBG pH ABG Sodium ABG Potassium ABG Glucose Oxyhemoglobin Sodium Potassium Chloride Carbon Dioxide BUN Creatinine Glucose POC Glucose 109 H 158 H 162 H Lactic Acid Calcium Ferritin AST Alkaline Phosphatase Magnesium Lactate Dehydrogenase Total Creatine Kinase CK-MB (CK-2) C-Reactive Protein Total Protein Albumin Troponin T HDL Cholesterol Arterial Blood Glucose Urine WBC (Auto) Urine Creatinine Urine Total Protein Phenytoin Coronavirus (PCR) Crossmatch 06/27/20 06/27/20 06/28/20 18:43 23:46 04:05 WBC RBC Hgb 7.7 L Hct 22.1 L MCHC RDW Lymph % (Auto) Kay % (Auto) Eos % (Auto) Lymph # Kay # Lymph # (Auto) Kay # (Auto) Eos # (Auto) Seg Neutrophils % Seg Neuts % (Manual) Lymphocytes % (Manual) Seg Neutrophils # Seg Neutrophils # Man Lymphocytes # (Manual) Monocytes % (Manual) Eosinophils % (Manual) Monocytes # (Manual) Eosinophils # (Manual) D-Dimer Heparin Anti-Xa Level ABG pH POC ABG pCO2 POC ABG pO2 ABG pO2 102.7 H ABG HCO3 28.7 H ABG O2 Saturation ABG Base Excess 3.7 H ABG Hemoglobin ABG Oxyhemoglobin VBG pH ABG Sodium ABG Potassium ABG Glucose Oxyhemoglobin Sodium Potassium Chloride Carbon Dioxide BUN Creatinine Glucose POC Glucose 142 H Lactic Acid Calcium Ferritin AST Alkaline Phosphatase Magnesium Lactate Dehydrogenase Total Creatine Kinase CK-MB (CK-2) C-Reactive Protein Total Protein Albumin Troponin T HDL Cholesterol Arterial Blood Glucose Urine WBC (Auto) Urine Creatinine Urine Total Protein Phenytoin Coronavirus (PCR) Crossmatch 06/28/20 06/28/20 06/28/20 09:47 09:47 12:02 WBC RBC 2.53 L Hgb 7.4 L Hct 22.2 L MCHC RDW 16.8 H Lymph % (Auto) Kay % (Auto) 13.5 H Eos % (Auto) Lymph # 1.1 L Kay # 1.0 H Lymph # (Auto) Kay # (Auto) Eos # (Auto) Seg Neutrophils % Seg Neuts % (Manual) Lymphocytes % (Manual) Seg Neutrophils # Seg Neutrophils # Man Lymphocytes # (Manual) Monocytes % (Manual) Eosinophils % (Manual) Monocytes # (Manual) Eosinophils # (Manual) D-Dimer Heparin Anti-Xa Level ABG pH POC ABG pCO2 POC ABG pO2 ABG pO2 ABG HCO3 ABG O2 Saturation ABG Base Excess ABG Hemoglobin ABG Oxyhemoglobin VBG pH ABG Sodium ABG Potassium ABG Glucose Oxyhemoglobin Sodium Potassium Chloride Carbon Dioxide BUN 80 H Creatinine 1.5 H Glucose 139 H POC Glucose 169 H Lactic Acid Calcium 7.9 L Ferritin AST Alkaline Phosphatase Magnesium Lactate Dehydrogenase Total Creatine Kinase CK-MB (CK-2) C-Reactive Protein Total Protein 5.0 L Albumin 2.1 L Troponin T HDL Cholesterol Arterial Blood Glucose Urine WBC (Auto) Urine Creatinine Urine Total Protein Phenytoin Coronavirus (PCR) Crossmatch 06/28/20 06/28/20 06/28/20 12:30 12:30 17:24 WBC RBC 2.38 L Hgb 7.3 L Hct 20.9 L MCHC 35 H RDW 16.7 H Lymph % (Auto) Kay % (Auto) Eos % (Auto) Lymph # Kay # Lymph # (Auto) Kay # (Auto) Eos # (Auto) Seg Neutrophils % Seg Neuts % (Manual) Lymphocytes % (Manual) Seg Neutrophils # Seg Neutrophils # Man Lymphocytes # (Manual) Monocytes % (Manual) Eosinophils % (Manual) Monocytes # (Manual) Eosinophils # (Manual) D-Dimer Heparin Anti-Xa Level ABG pH POC ABG pCO2 POC ABG pO2 ABG pO2 ABG HCO3 ABG O2 Saturation ABG Base Excess ABG Hemoglobin ABG Oxyhemoglobin VBG pH ABG Sodium ABG Potassium ABG Glucose Oxyhemoglobin Sodium Potassium Chloride Carbon Dioxide BUN 74 H Creatinine 1.5 H Glucose 143 H POC Glucose 173 H Lactic Acid Calcium 7.5 L Ferritin AST Alkaline Phosphatase Magnesium Lactate Dehydrogenase Total Creatine Kinase CK-MB (CK-2) C-Reactive Protein Total Protein Albumin Troponin T HDL Cholesterol Arterial Blood Glucose Urine WBC (Auto) Urine Creatinine Urine Total Protein Phenytoin Coronavirus (PCR) Crossmatch 06/29/20 06/29/20 06/29/20 00:02 03:54 04:38 WBC RBC 2.55 L Hgb 7.3 L Hct 22.4 L MCHC RDW 16.4 H Lymph % (Auto) 13.3 L Kay % (Auto) 12.5 H Eos % (Auto) Lymph # 1.1 L Kay # 1.0 H Lymph # (Auto) Kay # (Auto) Eos # (Auto) Seg Neutrophils % Seg Neuts % (Manual) Lymphocytes % (Manual) Seg Neutrophils # Seg Neutrophils # Man Lymphocytes # (Manual) Monocytes % (Manual) Eosinophils % (Manual) Monocytes # (Manual) Eosinophils # (Manual) D-Dimer Heparin Anti-Xa Level ABG pH POC ABG pCO2 POC ABG pO2 ABG pO2 ABG HCO3 26.9 H ABG O2 Saturation ABG Base Excess ABG Hemoglobin 6.9 L ABG Oxyhemoglobin VBG pH ABG Sodium ABG Potassium ABG Glucose Oxyhemoglobin Sodium Potassium Chloride Carbon Dioxide BUN Creatinine Glucose POC Glucose 142 H Lactic Acid Calcium Ferritin AST Alkaline Phosphatase Magnesium Lactate Dehydrogenase Total Creatine Kinase CK-MB (CK-2) C-Reactive Protein Total Protein Albumin Troponin T HDL Cholesterol Arterial Blood Glucose Urine WBC (Auto) Urine Creatinine Urine Total Protein Phenytoin Coronavirus (PCR) Crossmatch 06/29/20 06/29/20 06/29/20 04:38 05:38 12:25 WBC RBC Hgb Hct MCHC RDW Lymph % (Auto) Kay % (Auto) Eos % (Auto) Lymph # Kay # Lymph # (Auto) Kay # (Auto) Eos # (Auto) Seg Neutrophils % Seg Neuts % (Manual) Lymphocytes % (Manual) Seg Neutrophils # Seg Neutrophils # Man Lymphocytes # (Manual) Monocytes % (Manual) Eosinophils % (Manual) Monocytes # (Manual) Eosinophils # (Manual) D-Dimer Heparin Anti-Xa Level ABG pH POC ABG pCO2 POC ABG pO2 ABG pO2 ABG HCO3 ABG O2 Saturation ABG Base Excess ABG Hemoglobin ABG Oxyhemoglobin VBG pH ABG Sodium ABG Potassium ABG Glucose Oxyhemoglobin Sodium Potassium Chloride 107.8 H Carbon Dioxide BUN 72 H Creatinine 1.4 H Glucose 127 H POC Glucose 122 H 138 H Lactic Acid Calcium 7.4 L Ferritin AST Alkaline Phosphatase Magnesium Lactate Dehydrogenase Total Creatine Kinase CK-MB (CK-2) C-Reactive Protein Total Protein Albumin Troponin T HDL Cholesterol Arterial Blood Glucose Urine WBC (Auto) Urine Creatinine Urine Total Protein Phenytoin Coronavirus (PCR) Crossmatch 06/29/20 06/29/20 06/29/20 14:45 14:45 14:45 WBC RBC Hgb Hct MCHC RDW Lymph % (Auto) Kay % (Auto) Eos % (Auto) Lymph # Kay # Lymph # (Auto) Kay # (Auto) Eos # (Auto) Seg Neutrophils % Seg Neuts % (Manual) Lymphocytes % (Manual) Seg Neutrophils # Seg Neutrophils # Man Lymphocytes # (Manual) Monocytes % (Manual) Eosinophils % (Manual) Monocytes # (Manual) Eosinophils # (Manual) D-Dimer 2310.15 H Heparin Anti-Xa Level ABG pH POC ABG pCO2 POC ABG pO2 ABG pO2 ABG HCO3 ABG O2 Saturation ABG Base Excess ABG Hemoglobin ABG Oxyhemoglobin VBG pH ABG Sodium ABG Potassium ABG Glucose Oxyhemoglobin Sodium Potassium Chloride Carbon Dioxide BUN Creatinine Glucose POC Glucose Lactic Acid Calcium Ferritin 223.6 H AST Alkaline Phosphatase Magnesium Lactate Dehydrogenase 367 H Total Creatine Kinase CK-MB (CK-2) C-Reactive Protein 3.60 H Total Protein Albumin Troponin T HDL Cholesterol Arterial Blood Glucose Urine WBC (Auto) Urine Creatinine Urine Total Protein Phenytoin Coronavirus (PCR) Crossmatch 06/29/20 06/29/20 06/29/20 18:27 23:35 Unknown WBC RBC Hgb Hct MCHC RDW Lymph % (Auto) Kay % (Auto) Eos % (Auto) Lymph # Kay # Lymph # (Auto) Kay # (Auto) Eos # (Auto) Seg Neutrophils % Seg Neuts % (Manual) Lymphocytes % (Manual) Seg Neutrophils # Seg Neutrophils # Man Lymphocytes # (Manual) Monocytes % (Manual) Eosinophils % (Manual) Monocytes # (Manual) Eosinophils # (Manual) D-Dimer Heparin Anti-Xa Level ABG pH POC ABG pCO2 POC ABG pO2 ABG pO2 ABG HCO3 ABG O2 Saturation ABG Base Excess ABG Hemoglobin ABG Oxyhemoglobin VBG pH ABG Sodium ABG Potassium ABG Glucose Oxyhemoglobin Sodium Potassium Chloride Carbon Dioxide BUN Creatinine Glucose POC Glucose 112 H 140 H Lactic Acid Calcium Ferritin AST Alkaline Phosphatase Magnesium Lactate Dehydrogenase Total Creatine Kinase CK-MB (CK-2) C-Reactive Protein Total Protein Albumin Troponin T HDL Cholesterol Arterial Blood Glucose Urine WBC (Auto) Urine Creatinine Urine Total Protein Phenytoin Coronavirus (PCR) Positive A Crossmatch 06/30/20 06/30/20 06/30/20 04:10 04:10 06:09 WBC RBC 2.44 L Hgb 7.1 L Hct 21.5 L MCHC RDW 16.6 H Lymph % (Auto) 11.0 L Kay % (Auto) 10.8 H Eos % (Auto) Lymph # 0.9 L Kay # 0.9 H Lymph # (Auto) Kay # (Auto) Eos # (Auto) Seg Neutrophils % 73.7 H Seg Neuts % (Manual) Lymphocytes % (Manual) Seg Neutrophils # Seg Neutrophils # Man Lymphocytes # (Manual) Monocytes % (Manual) Eosinophils % (Manual) Monocytes # (Manual) Eosinophils # (Manual) D-Dimer Heparin Anti-Xa Level ABG pH POC ABG pCO2 POC ABG pO2 ABG pO2 ABG HCO3 ABG O2 Saturation ABG Base Excess ABG Hemoglobin ABG Oxyhemoglobin VBG pH ABG Sodium ABG Potassium ABG Glucose Oxyhemoglobin Sodium Potassium Chloride 109.1 H Carbon Dioxide BUN 74 H Creatinine 1.3 H Glucose 191 H POC Glucose 187 H Lactic Acid Calcium 7.8 L Ferritin AST Alkaline Phosphatase Magnesium Lactate Dehydrogenase Total Creatine Kinase CK-MB (CK-2) C-Reactive Protein Total Protein Albumin Troponin T HDL Cholesterol Arterial Blood Glucose Urine WBC (Auto) Urine Creatinine Urine Total Protein Phenytoin Coronavirus (PCR) Crossmatch 06/30/20 06/30/20 06/30/20 12:04 17:43 23:41 WBC RBC Hgb Hct MCHC RDW Lymph % (Auto) Kay % (Auto) Eos % (Auto) Lymph # Kay # Lymph # (Auto) Kay # (Auto) Eos # (Auto) Seg Neutrophils % Seg Neuts % (Manual) Lymphocytes % (Manual) Seg Neutrophils # Seg Neutrophils # Man Lymphocytes # (Manual) Monocytes % (Manual) Eosinophils % (Manual) Monocytes # (Manual) Eosinophils # (Manual) D-Dimer Heparin Anti-Xa Level ABG pH POC ABG pCO2 POC ABG pO2 ABG pO2 ABG HCO3 ABG O2 Saturation ABG Base Excess ABG Hemoglobin ABG Oxyhemoglobin VBG pH ABG Sodium ABG Potassium ABG Glucose Oxyhemoglobin Sodium Potassium Chloride Carbon Dioxide BUN Creatinine Glucose POC Glucose 112 H 177 H 143 H Lactic Acid Calcium Ferritin AST Alkaline Phosphatase Magnesium Lactate Dehydrogenase Total Creatine Kinase CK-MB (CK-2) C-Reactive Protein Total Protein Albumin Troponin T HDL Cholesterol Arterial Blood Glucose Urine WBC (Auto) Urine Creatinine Urine Total Protein Phenytoin Coronavirus (PCR) Crossmatch 07/01/20 07/01/20 07/01/20 05:02 05:52 06:01 WBC 12.6 H RBC 2.95 L Hgb 8.2 L Hct 26.0 L MCHC RDW 16.9 H Lymph % (Auto) Kay % (Auto) Eos % (Auto) Lymph # Kay # Lymph # (Auto) Kay # (Auto) Eos # (Auto) Seg Neutrophils % Seg Neuts % (Manual) Lymphocytes % (Manual) Seg Neutrophils # Seg Neutrophils # Man 8.6 H Lymphocytes # (Manual) Monocytes % (Manual) Eosinophils % (Manual) 5.0 H Monocytes # (Manual) Eosinophils # (Manual) 0.6 H D-Dimer Heparin Anti-Xa Level ABG pH POC ABG pCO2 POC ABG pO2 ABG pO2 ABG HCO3 ABG O2 Saturation ABG Base Excess ABG Hemoglobin 8.2 L ABG Oxyhemoglobin VBG pH ABG Sodium ABG Potassium ABG Glucose Oxyhemoglobin Sodium Potassium Chloride Carbon Dioxide BUN Creatinine Glucose POC Glucose 129 H Lactic Acid Calcium Ferritin AST Alkaline Phosphatase Magnesium Lactate Dehydrogenase Total Creatine Kinase CK-MB (CK-2) C-Reactive Protein Total Protein Albumin Troponin T HDL Cholesterol Arterial Blood Glucose Urine WBC (Auto) Urine Creatinine Urine Total Protein Phenytoin Coronavirus (PCR) Crossmatch 07/01/20 07/01/20 07/01/20 06:01 06:01 06:08 WBC RBC Hgb Hct MCHC RDW Lymph % (Auto) Kay % (Auto) Eos % (Auto) Lymph # Kay # Lymph # (Auto) Kay # (Auto) Eos # (Auto) Seg Neutrophils % Seg Neuts % (Manual) Lymphocytes % (Manual) Seg Neutrophils # Seg Neutrophils # Man Lymphocytes # (Manual) Monocytes % (Manual) Eosinophils % (Manual) Monocytes # (Manual) Eosinophils # (Manual) D-Dimer Heparin Anti-Xa Level ABG pH POC ABG pCO2 POC ABG pO2 ABG pO2 ABG HCO3 ABG O2 Saturation ABG Base Excess ABG Hemoglobin ABG Oxyhemoglobin VBG pH ABG Sodium ABG Potassium ABG Glucose Oxyhemoglobin Sodium 147 H Potassium Chloride 108.0 H Carbon Dioxide BUN 71 H Creatinine 1.3 H Glucose 193 H POC Glucose 192 H Lactic Acid Calcium 8.1 L Ferritin AST Alkaline Phosphatase Magnesium Lactate Dehydrogenase Total Creatine Kinase 300 H CK-MB (CK-2) C-Reactive Protein Total Protein Albumin Troponin T 0.067 H HDL Cholesterol 61 H Arterial Blood Glucose Urine WBC (Auto) Urine Creatinine Urine Total Protein Phenytoin Coronavirus (PCR) Crossmatch 07/01/20 07/01/20 07/02/20 12:23 17:40 00:18 WBC RBC Hgb Hct MCHC RDW Lymph % (Auto) Kay % (Auto) Eos % (Auto) Lymph # Kay # Lymph # (Auto) Kay # (Auto) Eos # (Auto) Seg Neutrophils % Seg Neuts % (Manual) Lymphocytes % (Manual) Seg Neutrophils # Seg Neutrophils # Man Lymphocytes # (Manual) Monocytes % (Manual) Eosinophils % (Manual) Monocytes # (Manual) Eosinophils # (Manual) D-Dimer Heparin Anti-Xa Level ABG pH POC ABG pCO2 POC ABG pO2 ABG pO2 ABG HCO3 ABG O2 Saturation ABG Base Excess ABG Hemoglobin ABG Oxyhemoglobin VBG pH ABG Sodium ABG Potassium ABG Glucose Oxyhemoglobin Sodium Potassium Chloride Carbon Dioxide BUN Creatinine Glucose POC Glucose 111 H 135 H 145 H Lactic Acid Calcium Ferritin AST Alkaline Phosphatase Magnesium Lactate Dehydrogenase Total Creatine Kinase CK-MB (CK-2) C-Reactive Protein Total Protein Albumin Troponin T HDL Cholesterol Arterial Blood Glucose Urine WBC (Auto) Urine Creatinine Urine Total Protein Phenytoin Coronavirus (PCR) Crossmatch 07/02/20 07/02/20 07/02/20 04:11 04:23 05:54 WBC RBC Hgb Hct MCHC RDW Lymph % (Auto) Kay % (Auto) Eos % (Auto) Lymph # Kay # Lymph # (Auto) Kay # (Auto) Eos # (Auto) Seg Neutrophils % Seg Neuts % (Manual) Lymphocytes % (Manual) Seg Neutrophils # Seg Neutrophils # Man Lymphocytes # (Manual) Monocytes % (Manual) Eosinophils % (Manual) Monocytes # (Manual) Eosinophils # (Manual) D-Dimer Heparin Anti-Xa Level ABG pH POC ABG pCO2 POC ABG pO2 ABG pO2 ABG HCO3 ABG O2 Saturation ABG Base Excess ABG Hemoglobin 5.4 L ABG Oxyhemoglobin VBG pH ABG Sodium ABG Potassium ABG Glucose Oxyhemoglobin Sodium Potassium Chloride 108.6 H Carbon Dioxide BUN 72 H Creatinine Glucose 112 H POC Glucose 137 H Lactic Acid Calcium 7.8 L Ferritin AST Alkaline Phosphatase Magnesium Lactate Dehydrogenase Total Creatine Kinase CK-MB (CK-2) C-Reactive Protein Total Protein Albumin Troponin T HDL Cholesterol Arterial Blood Glucose Urine WBC (Auto) Urine Creatinine Urine Total Protein Phenytoin Coronavirus (PCR) Crossmatch 07/02/20 07/02/20 07/02/20 11:38 18:04 23:59 WBC RBC Hgb Hct MCHC RDW Lymph % (Auto) Kay % (Auto) Eos % (Auto) Lymph # Kay # Lymph # (Auto) Kay # (Auto) Eos # (Auto) Seg Neutrophils % Seg Neuts % (Manual) Lymphocytes % (Manual) Seg Neutrophils # Seg Neutrophils # Man Lymphocytes # (Manual) Monocytes % (Manual) Eosinophils % (Manual) Monocytes # (Manual) Eosinophils # (Manual) D-Dimer Heparin Anti-Xa Level ABG pH POC ABG pCO2 POC ABG pO2 ABG pO2 ABG HCO3 ABG O2 Saturation ABG Base Excess ABG Hemoglobin ABG Oxyhemoglobin VBG pH ABG Sodium ABG Potassium ABG Glucose Oxyhemoglobin Sodium Potassium Chloride Carbon Dioxide BUN Creatinine Glucose POC Glucose 128 H 135 H 156 H Lactic Acid Calcium Ferritin AST Alkaline Phosphatase Magnesium Lactate Dehydrogenase Total Creatine Kinase CK-MB (CK-2) C-Reactive Protein Total Protein Albumin Troponin T HDL Cholesterol Arterial Blood Glucose Urine WBC (Auto) Urine Creatinine Urine Total Protein Phenytoin Coronavirus (PCR) Crossmatch 07/03/20 07/03/20 07/03/20 03:49 06:00 11:31 WBC RBC Hgb Hct MCHC RDW Lymph % (Auto) Kay % (Auto) Eos % (Auto) Lymph # Kay # Lymph # (Auto) Kay # (Auto) Eos # (Auto) Seg Neutrophils % Seg Neuts % (Manual) Lymphocytes % (Manual) Seg Neutrophils # Seg Neutrophils # Man Lymphocytes # (Manual) Monocytes % (Manual) Eosinophils % (Manual) Monocytes # (Manual) Eosinophils # (Manual) D-Dimer Heparin Anti-Xa Level ABG pH POC ABG pCO2 POC ABG pO2 ABG pO2 121.0 H ABG HCO3 ABG O2 Saturation ABG Base Excess ABG Hemoglobin 8.5 L ABG Oxyhemoglobin VBG pH ABG Sodium ABG Potassium ABG Glucose Oxyhemoglobin Sodium Potassium Chloride Carbon Dioxide BUN Creatinine Glucose POC Glucose 135 H 141 H Lactic Acid Calcium Ferritin AST Alkaline Phosphatase Magnesium Lactate Dehydrogenase Total Creatine Kinase CK-MB (CK-2) C-Reactive Protein Total Protein Albumin Troponin T HDL Cholesterol Arterial Blood Glucose Urine WBC (Auto) Urine Creatinine Urine Total Protein Phenytoin Coronavirus (PCR) Crossmatch 07/03/20 07/03/20 07/03/20 16:00 16:07 17:40 WBC RBC Hgb Hct MCHC RDW Lymph % (Auto) Kay % (Auto) Eos % (Auto) Lymph # Kay # Lymph # (Auto) Kay # (Auto) Eos # (Auto) Seg Neutrophils % Seg Neuts % (Manual) Lymphocytes % (Manual) Seg Neutrophils # Seg Neutrophils # Man Lymphocytes # (Manual) Monocytes % (Manual) Eosinophils % (Manual) Monocytes # (Manual) Eosinophils # (Manual) D-Dimer Heparin Anti-Xa Level ABG pH 7.271 L POC ABG pCO2 POC ABG pO2 ABG pO2 126.9 H ABG HCO3 ABG O2 Saturation ABG Base Excess ABG Hemoglobin 8.2 L 8.1 L ABG Oxyhemoglobin VBG pH ABG Sodium 130.3 L ABG Potassium 4.9 H ABG Glucose 163 H Oxyhemoglobin Sodium Potassium Chloride Carbon Dioxide BUN Creatinine Glucose POC Glucose 120 H Lactic Acid Calcium Ferritin AST Alkaline Phosphatase Magnesium Lactate Dehydrogenase Total Creatine Kinase CK-MB (CK-2) C-Reactive Protein Total Protein Albumin Troponin T HDL Cholesterol Arterial Blood Glucose 163 H Urine WBC (Auto) Urine Creatinine Urine Total Protein Phenytoin Coronavirus (PCR) Crossmatch 07/04/20 07/04/20 07/04/20 05:49 11:54 18:00 WBC RBC Hgb Hct MCHC RDW Lymph % (Auto) Kay % (Auto) Eos % (Auto) Lymph # Kay # Lymph # (Auto) Kay # (Auto) Eos # (Auto) Seg Neutrophils % Seg Neuts % (Manual) Lymphocytes % (Manual) Seg Neutrophils # Seg Neutrophils # Man Lymphocytes # (Manual) Monocytes % (Manual) Eosinophils % (Manual) Monocytes # (Manual) Eosinophils # (Manual) D-Dimer Heparin Anti-Xa Level ABG pH POC ABG pCO2 POC ABG pO2 ABG pO2 ABG HCO3 ABG O2 Saturation ABG Base Excess ABG Hemoglobin ABG Oxyhemoglobin VBG pH ABG Sodium ABG Potassium ABG Glucose Oxyhemoglobin Sodium Potassium Chloride Carbon Dioxide BUN Creatinine Glucose POC Glucose 128 H 168 H 133 H Lactic Acid Calcium Ferritin AST Alkaline Phosphatase Magnesium Lactate Dehydrogenase Total Creatine Kinase CK-MB (CK-2) C-Reactive Protein Total Protein Albumin Troponin T HDL Cholesterol Arterial Blood Glucose Urine WBC (Auto) Urine Creatinine Urine Total Protein Phenytoin Coronavirus (PCR) Crossmatch 07/05/20 07/05/20 07/05/20 00:07 01:12 02:30 WBC RBC 2.35 L Hgb 6.9 L Hct 21.1 L MCHC RDW 16.8 H Lymph % (Auto) Kay % (Auto) Eos % (Auto) Lymph # Kay # Lymph # (Auto) Kay # (Auto) Eos # (Auto) Seg Neutrophils % Seg Neuts % (Manual) 74.0 H Lymphocytes % (Manual) 12.0 L Seg Neutrophils # Seg Neutrophils # Man 8.0 H Lymphocytes # (Manual) Monocytes % (Manual) 9.0 H Eosinophils % (Manual) Monocytes # (Manual) 1.0 H Eosinophils # (Manual) D-Dimer Heparin Anti-Xa Level ABG pH POC ABG pCO2 POC ABG pO2 ABG pO2 ABG HCO3 ABG O2 Saturation ABG Base Excess ABG Hemoglobin ABG Oxyhemoglobin VBG pH ABG Sodium ABG Potassium ABG Glucose Oxyhemoglobin Sodium Potassium Chloride Carbon Dioxide BUN Creatinine Glucose POC Glucose 121 H Lactic Acid Calcium Ferritin AST Alkaline Phosphatase Magnesium Lactate Dehydrogenase Total Creatine Kinase CK-MB (CK-2) C-Reactive Protein Total Protein Albumin Troponin T HDL Cholesterol Arterial Blood Glucose Urine WBC (Auto) Urine Creatinine Urine Total Protein Phenytoin Coronavirus (PCR) Crossmatch See Detail 07/05/20 07/05/20 07/05/20 12:09 13:05 18:04 WBC RBC Hgb Hct MCHC RDW Lymph % (Auto) Kay % (Auto) Eos % (Auto) Lymph # Kay # Lymph # (Auto) Kay # (Auto) Eos # (Auto) Seg Neutrophils % Seg Neuts % (Manual) Lymphocytes % (Manual) Seg Neutrophils # Seg Neutrophils # Man Lymphocytes # (Manual) Monocytes % (Manual) Eosinophils % (Manual) Monocytes # (Manual) Eosinophils # (Manual) D-Dimer Heparin Anti-Xa Level ABG pH 7.32 L POC ABG pCO2 POC ABG pO2 ABG pO2 78.3 L ABG HCO3 ABG O2 Saturation ABG Base Excess -2.6 L ABG Hemoglobin 7.3 L ABG Oxyhemoglobin VBG pH ABG Sodium ABG Potassium ABG Glucose Oxyhemoglobin Sodium Potassium Chloride Carbon Dioxide BUN Creatinine Glucose POC Glucose 132 H 160 H Lactic Acid Calcium Ferritin AST Alkaline Phosphatase Magnesium Lactate Dehydrogenase Total Creatine Kinase CK-MB (CK-2) C-Reactive Protein Total Protein Albumin Troponin T HDL Cholesterol Arterial Blood Glucose Urine WBC (Auto) Urine Creatinine Urine Total Protein Phenytoin Coronavirus (PCR) Crossmatch 07/05/20 07/05/20 07/05/20 23:13 23:13 23:43 WBC RBC 2.57 L Hgb 7.7 L Hct 23.0 L MCHC RDW 16.9 H Lymph % (Auto) Kay % (Auto) Eos % (Auto) Lymph # Kay # Lymph # (Auto) Kay # (Auto) Eos # (Auto) Seg Neutrophils % Seg Neuts % (Manual) Lymphocytes % (Manual) Seg Neutrophils # Seg Neutrophils # Man Lymphocytes # (Manual) Monocytes % (Manual) Eosinophils % (Manual) Monocytes # (Manual) Eosinophils # (Manual) D-Dimer Heparin Anti-Xa Level ABG pH POC ABG pCO2 POC ABG pO2 ABG pO2 ABG HCO3 ABG O2 Saturation ABG Base Excess ABG Hemoglobin ABG Oxyhemoglobin VBG pH ABG Sodium ABG Potassium ABG Glucose Oxyhemoglobin Sodium Potassium Chloride Carbon Dioxide 20 L BUN 80 H Creatinine 2.4 H D Glucose 124 H POC Glucose 121 H Lactic Acid Calcium 7.6 L Ferritin AST Alkaline Phosphatase Magnesium Lactate Dehydrogenase Total Creatine Kinase CK-MB (CK-2) C-Reactive Protein Total Protein Albumin Troponin T HDL Cholesterol Arterial Blood Glucose Urine WBC (Auto) Urine Creatinine Urine Total Protein Phenytoin Coronavirus (PCR) Crossmatch 07/06/20 07/06/20 07/06/20 13:20 14:48 17:28 WBC RBC Hgb Hct MCHC RDW Lymph % (Auto) Kay % (Auto) Eos % (Auto) Lymph # Kay # Lymph # (Auto) Kay # (Auto) Eos # (Auto) Seg Neutrophils % Seg Neuts % (Manual) Lymphocytes % (Manual) Seg Neutrophils # Seg Neutrophils # Man Lymphocytes # (Manual) Monocytes % (Manual) Eosinophils % (Manual) Monocytes # (Manual) Eosinophils # (Manual) D-Dimer Heparin Anti-Xa Level ABG pH POC ABG pCO2 POC ABG pO2 ABG pO2 ABG HCO3 ABG O2 Saturation ABG Base Excess ABG Hemoglobin ABG Oxyhemoglobin VBG pH ABG Sodium ABG Potassium ABG Glucose Oxyhemoglobin Sodium 136 L Potassium 5.5 H Chloride Carbon Dioxide 19 L BUN 82 H Creatinine 2.5 H Glucose 113 H POC Glucose 133 H Lactic Acid Calcium 7.7 L Ferritin AST Alkaline Phosphatase Magnesium Lactate Dehydrogenase Total Creatine Kinase CK-MB (CK-2) C-Reactive Protein Total Protein Albumin Troponin T HDL Cholesterol Arterial Blood Glucose Urine WBC (Auto) Urine Creatinine 33.3 H Urine Total Protein Phenytoin Coronavirus (PCR) Crossmatch 07/07/20 07/07/20 07/07/20 00:12 04:15 04:15 WBC RBC 2.28 L Hgb 6.8 L Hct 20.7 L MCHC RDW 16.8 H Lymph % (Auto) Kay % (Auto) Eos % (Auto) Lymph # Kay # Lymph # (Auto) Kay # (Auto) Eos # (Auto) Seg Neutrophils % Seg Neuts % (Manual) Lymphocytes % (Manual) 13.0 L Seg Neutrophils # Seg Neutrophils # Man Lymphocytes # (Manual) 1.0 L Monocytes % (Manual) 11.0 H Eosinophils % (Manual) Monocytes # (Manual) 0.9 H Eosinophils # (Manual) D-Dimer Heparin Anti-Xa Level ABG pH POC ABG pCO2 POC ABG pO2 ABG pO2 ABG HCO3 ABG O2 Saturation ABG Base Excess ABG Hemoglobin ABG Oxyhemoglobin VBG pH ABG Sodium ABG Potassium ABG Glucose Oxyhemoglobin Sodium Potassium Chloride Carbon Dioxide BUN Creatinine Glucose POC Glucose 154 H Lactic Acid Calcium Ferritin AST Alkaline Phosphatase Magnesium 2.50 H Lactate Dehydrogenase Total Creatine Kinase CK-MB (CK-2) C-Reactive Protein Total Protein Albumin Troponin T HDL Cholesterol Arterial Blood Glucose Urine WBC (Auto) Urine Creatinine Urine Total Protein Phenytoin Coronavirus (PCR) Crossmatch 07/07/20 07/07/20 07/07/20 05:31 12:31 13:22 WBC RBC Hgb Hct MCHC RDW Lymph % (Auto) Kay % (Auto) Eos % (Auto) Lymph # Kay # Lymph # (Auto) Kay # (Auto) Eos # (Auto) Seg Neutrophils % Seg Neuts % (Manual) Lymphocytes % (Manual) Seg Neutrophils # Seg Neutrophils # Man Lymphocytes # (Manual) Monocytes % (Manual) Eosinophils % (Manual) Monocytes # (Manual) Eosinophils # (Manual) D-Dimer Heparin Anti-Xa Level ABG pH POC ABG pCO2 POC ABG pO2 ABG pO2 ABG HCO3 ABG O2 Saturation ABG Base Excess ABG Hemoglobin ABG Oxyhemoglobin VBG pH ABG Sodium ABG Potassium ABG Glucose Oxyhemoglobin Sodium Potassium 5.6 H Chloride Carbon Dioxide BUN 86 H Creatinine 2.9 H Glucose 127 H POC Glucose 135 H 131 H Lactic Acid Calcium 8.1 L Ferritin AST Alkaline Phosphatase Magnesium Lactate Dehydrogenase Total Creatine Kinase CK-MB (CK-2) C-Reactive Protein Total Protein Albumin Troponin T HDL Cholesterol Arterial Blood Glucose Urine WBC (Auto) Urine Creatinine Urine Total Protein Phenytoin Coronavirus (PCR) Crossmatch 07/07/20 07/07/20 07/08/20 17:55 23:33 04:14 WBC RBC 3.28 L Hgb 9.7 L Hct 28.9 L D MCHC RDW 16.4 H Lymph % (Auto) 10.3 L Kay % (Auto) 10.0 H Eos % (Auto) Lymph # Kay # Lymph # (Auto) 1.1 L Kay # (Auto) 1.1 H Eos # (Auto) Seg Neutrophils % 77.2 H Seg Neuts % (Manual) Lymphocytes % (Manual) Seg Neutrophils # 8.2 H Seg Neutrophils # Man Lymphocytes # (Manual) Monocytes % (Manual) Eosinophils % (Manual) Monocytes # (Manual) Eosinophils # (Manual) D-Dimer Heparin Anti-Xa Level ABG pH POC ABG pCO2 POC ABG pO2 ABG pO2 ABG HCO3 ABG O2 Saturation ABG Base Excess ABG Hemoglobin ABG Oxyhemoglobin VBG pH ABG Sodium ABG Potassium ABG Glucose Oxyhemoglobin Sodium Potassium Chloride Carbon Dioxide BUN Creatinine Glucose POC Glucose 136 H 159 H Lactic Acid Calcium Ferritin AST Alkaline Phosphatase Magnesium Lactate Dehydrogenase Total Creatine Kinase CK-MB (CK-2) C-Reactive Protein Total Protein Albumin Troponin T HDL Cholesterol Arterial Blood Glucose Urine WBC (Auto) Urine Creatinine Urine Total Protein Phenytoin Coronavirus (PCR) Crossmatch 07/08/20 07/08/20 07/08/20 04:14 12:10 18:10 WBC RBC Hgb Hct MCHC RDW Lymph % (Auto) Kay % (Auto) Eos % (Auto) Lymph # Kay # Lymph # (Auto) Kay # (Auto) Eos # (Auto) Seg Neutrophils % Seg Neuts % (Manual) Lymphocytes % (Manual) Seg Neutrophils # Seg Neutrophils # Man Lymphocytes # (Manual) Monocytes % (Manual) Eosinophils % (Manual) Monocytes # (Manual) Eosinophils # (Manual) D-Dimer Heparin Anti-Xa Level ABG pH POC ABG pCO2 POC ABG pO2 ABG pO2 ABG HCO3 ABG O2 Saturation ABG Base Excess ABG Hemoglobin ABG Oxyhemoglobin VBG pH ABG Sodium ABG Potassium ABG Glucose Oxyhemoglobin Sodium 136 L Potassium Chloride Carbon Dioxide BUN 84 H Creatinine 2.8 H Glucose 109 H POC Glucose 108 H 125 H Lactic Acid Calcium 8.1 L Ferritin AST Alkaline Phosphatase Magnesium 2.50 H Lactate Dehydrogenase Total Creatine Kinase CK-MB (CK-2) C-Reactive Protein Total Protein Albumin Troponin T HDL Cholesterol Arterial Blood Glucose Urine WBC (Auto) Urine Creatinine Urine Total Protein Phenytoin Coronavirus (PCR) Crossmatch 07/08/20 07/09/20 07/09/20 23:50 05:39 11:57 WBC RBC Hgb Hct MCHC RDW Lymph % (Auto) Kay % (Auto) Eos % (Auto) Lymph # Kay # Lymph # (Auto) Kay # (Auto) Eos # (Auto) Seg Neutrophils % Seg Neuts % (Manual) Lymphocytes % (Manual) Seg Neutrophils # Seg Neutrophils # Man Lymphocytes # (Manual) Monocytes % (Manual) Eosinophils % (Manual) Monocytes # (Manual) Eosinophils # (Manual) D-Dimer Heparin Anti-Xa Level ABG pH POC ABG pCO2 POC ABG pO2 ABG pO2 ABG HCO3 ABG O2 Saturation ABG Base Excess ABG Hemoglobin ABG Oxyhemoglobin VBG pH ABG Sodium ABG Potassium ABG Glucose Oxyhemoglobin Sodium Potassium Chloride Carbon Dioxide BUN Creatinine Glucose POC Glucose 141 H 121 H 123 H Lactic Acid Calcium Ferritin AST Alkaline Phosphatase Magnesium Lactate Dehydrogenase Total Creatine Kinase CK-MB (CK-2) C-Reactive Protein Total Protein Albumin Troponin T HDL Cholesterol Arterial Blood Glucose Urine WBC (Auto) Urine Creatinine Urine Total Protein Phenytoin Coronavirus (PCR) Crossmatch 07/09/20 07/10/20 07/10/20 17:56 00:29 05:50 WBC RBC Hgb Hct MCHC RDW Lymph % (Auto) Kay % (Auto) Eos % (Auto) Lymph # Kay # Lymph # (Auto) Kay # (Auto) Eos # (Auto) Seg Neutrophils % Seg Neuts % (Manual) Lymphocytes % (Manual) Seg Neutrophils # Seg Neutrophils # Man Lymphocytes # (Manual) Monocytes % (Manual) Eosinophils % (Manual) Monocytes # (Manual) Eosinophils # (Manual) D-Dimer Heparin Anti-Xa Level ABG pH POC ABG pCO2 POC ABG pO2 ABG pO2 ABG HCO3 ABG O2 Saturation ABG Base Excess ABG Hemoglobin ABG Oxyhemoglobin VBG pH ABG Sodium ABG Potassium ABG Glucose Oxyhemoglobin Sodium Potassium Chloride Carbon Dioxide BUN Creatinine Glucose POC Glucose 119 H 122 H 124 H Lactic Acid Calcium Ferritin AST Alkaline Phosphatase Magnesium Lactate Dehydrogenase Total Creatine Kinase CK-MB (CK-2) C-Reactive Protein Total Protein Albumin Troponin T HDL Cholesterol Arterial Blood Glucose Urine WBC (Auto) Urine Creatinine Urine Total Protein Phenytoin Coronavirus (PCR) Crossmatch 07/10/20 07/10/20 07/10/20 10:41 10:41 12:25 WBC RBC 3.11 L Hgb 9.2 L Hct 27.6 L MCHC RDW 16.6 H Lymph % (Auto) Kay % (Auto) Eos % (Auto) Lymph # Kay # Lymph # (Auto) Kay # (Auto) Eos # (Auto) Seg Neutrophils % Seg Neuts % (Manual) 78.0 H Lymphocytes % (Manual) 11.0 L Seg Neutrophils # Seg Neutrophils # Man Lymphocytes # (Manual) 1.0 L Monocytes % (Manual) Eosinophils % (Manual) Monocytes # (Manual) Eosinophils # (Manual) D-Dimer Heparin Anti-Xa Level ABG pH POC ABG pCO2 POC ABG pO2 ABG pO2 ABG HCO3 ABG O2 Saturation ABG Base Excess ABG Hemoglobin ABG Oxyhemoglobin VBG pH ABG Sodium ABG Potassium ABG Glucose Oxyhemoglobin Sodium Potassium Chloride Carbon Dioxide BUN 85 H Creatinine 2.5 H Glucose 133 H POC Glucose 131 H Lactic Acid Calcium Ferritin AST Alkaline Phosphatase 131 H Magnesium Lactate Dehydrogenase Total Creatine Kinase CK-MB (CK-2) C-Reactive Protein Total Protein 5.2 L Albumin 1.6 L Troponin T HDL Cholesterol Arterial Blood Glucose Urine WBC (Auto) Urine Creatinine Urine Total Protein Phenytoin Coronavirus (PCR) Crossmatch 07/10/20 07/11/20 07/11/20 18:10 00:28 05:57 WBC RBC Hgb Hct MCHC RDW Lymph % (Auto) Kay % (Auto) Eos % (Auto) Lymph # Kay # Lymph # (Auto) Kay # (Auto) Eos # (Auto) Seg Neutrophils % Seg Neuts % (Manual) Lymphocytes % (Manual) Seg Neutrophils # Seg Neutrophils # Man Lymphocytes # (Manual) Monocytes % (Manual) Eosinophils % (Manual) Monocytes # (Manual) Eosinophils # (Manual) D-Dimer Heparin Anti-Xa Level ABG pH POC ABG pCO2 POC ABG pO2 ABG pO2 ABG HCO3 ABG O2 Saturation ABG Base Excess ABG Hemoglobin ABG Oxyhemoglobin VBG pH ABG Sodium ABG Potassium ABG Glucose Oxyhemoglobin Sodium Potassium Chloride Carbon Dioxide BUN Creatinine Glucose POC Glucose 134 H 140 H 148 H Lactic Acid Calcium Ferritin AST Alkaline Phosphatase Magnesium Lactate Dehydrogenase Total Creatine Kinase CK-MB (CK-2) C-Reactive Protein Total Protein Albumin Troponin T HDL Cholesterol Arterial Blood Glucose Urine WBC (Auto) Urine Creatinine Urine Total Protein Phenytoin Coronavirus (PCR) Crossmatch 07/11/20 07/11/20 07/11/20 12:14 17:28 23:49 WBC RBC Hgb Hct MCHC RDW Lymph % (Auto) Kay % (Auto) Eos % (Auto) Lymph # Kay # Lymph # (Auto) Kay # (Auto) Eos # (Auto) Seg Neutrophils % Seg Neuts % (Manual) Lymphocytes % (Manual) Seg Neutrophils # Seg Neutrophils # Man Lymphocytes # (Manual) Monocytes % (Manual) Eosinophils % (Manual) Monocytes # (Manual) Eosinophils # (Manual) D-Dimer Heparin Anti-Xa Level ABG pH POC ABG pCO2 POC ABG pO2 ABG pO2 ABG HCO3 ABG O2 Saturation ABG Base Excess ABG Hemoglobin ABG Oxyhemoglobin VBG pH ABG Sodium ABG Potassium ABG Glucose Oxyhemoglobin Sodium Potassium Chloride Carbon Dioxide BUN Creatinine Glucose POC Glucose 147 H 175 H 114 H Lactic Acid Calcium Ferritin AST Alkaline Phosphatase Magnesium Lactate Dehydrogenase Total Creatine Kinase CK-MB (CK-2) C-Reactive Protein Total Protein Albumin Troponin T HDL Cholesterol Arterial Blood Glucose Urine WBC (Auto) Urine Creatinine Urine Total Protein Phenytoin Coronavirus (PCR) Crossmatch 07/12/20 07/12/20 07/12/20 05:14 05:14 05:44 WBC RBC 2.78 L Hgb 8.5 L Hct 25.3 L MCHC RDW 16.7 H Lymph % (Auto) Kay % (Auto) Eos % (Auto) Lymph # Kay # Lymph # (Auto) Kay # (Auto) Eos # (Auto) Seg Neutrophils % Seg Neuts % (Manual) 81.0 H Lymphocytes % (Manual) 6.0 L Seg Neutrophils # Seg Neutrophils # Man Lymphocytes # (Manual) 0.6 L Monocytes % (Manual) 8.0 H Eosinophils % (Manual) Monocytes # (Manual) Eosinophils # (Manual) D-Dimer Heparin Anti-Xa Level ABG pH POC ABG pCO2 POC ABG pO2 ABG pO2 ABG HCO3 ABG O2 Saturation ABG Base Excess ABG Hemoglobin ABG Oxyhemoglobin VBG pH ABG Sodium ABG Potassium ABG Glucose Oxyhemoglobin Sodium Potassium Chloride Carbon Dioxide BUN 79 H Creatinine 2.2 H Glucose 131 H POC Glucose 116 H Lactic Acid Calcium Ferritin AST Alkaline Phosphatase Magnesium Lactate Dehydrogenase Total Creatine Kinase CK-MB (CK-2) C-Reactive Protein Total Protein Albumin Troponin T HDL Cholesterol Arterial Blood Glucose Urine WBC (Auto) Urine Creatinine Urine Total Protein Phenytoin Coronavirus (PCR) Crossmatch 07/12/20 07/12/20 07/13/20 11:32 17:53 00:18 WBC RBC Hgb Hct MCHC RDW Lymph % (Auto) Kay % (Auto) Eos % (Auto) Lymph # Kay # Lymph # (Auto) Kay # (Auto) Eos # (Auto) Seg Neutrophils % Seg Neuts % (Manual) Lymphocytes % (Manual) Seg Neutrophils # Seg Neutrophils # Man Lymphocytes # (Manual) Monocytes % (Manual) Eosinophils % (Manual) Monocytes # (Manual) Eosinophils # (Manual) D-Dimer Heparin Anti-Xa Level ABG pH POC ABG pCO2 POC ABG pO2 ABG pO2 ABG HCO3 ABG O2 Saturation ABG Base Excess ABG Hemoglobin ABG Oxyhemoglobin VBG pH ABG Sodium ABG Potassium ABG Glucose Oxyhemoglobin Sodium Potassium Chloride Carbon Dioxide BUN Creatinine Glucose POC Glucose 132 H 155 H 162 H Lactic Acid Calcium Ferritin AST Alkaline Phosphatase Magnesium Lactate Dehydrogenase Total Creatine Kinase CK-MB (CK-2) C-Reactive Protein Total Protein Albumin Troponin T HDL Cholesterol Arterial Blood Glucose Urine WBC (Auto) Urine Creatinine Urine Total Protein Phenytoin Coronavirus (PCR) Crossmatch 07/13/20 07/13/20 07/13/20 04:53 04:53 06:14 WBC RBC 2.86 L Hgb 8.4 L Hct 25.7 L MCHC RDW 16.8 H Lymph % (Auto) Kay % (Auto) Eos % (Auto) Lymph # Kay # Lymph # (Auto) Kay # (Auto) Eos # (Auto) Seg Neutrophils % Seg Neuts % (Manual) 84.0 H Lymphocytes % (Manual) 7.0 L Seg Neutrophils # Seg Neutrophils # Man Lymphocytes # (Manual) 0.6 L Monocytes % (Manual) Eosinophils % (Manual) Monocytes # (Manual) Eosinophils # (Manual) D-Dimer Heparin Anti-Xa Level ABG pH POC ABG pCO2 POC ABG pO2 ABG pO2 ABG HCO3 ABG O2 Saturation ABG Base Excess ABG Hemoglobin ABG Oxyhemoglobin VBG pH ABG Sodium ABG Potassium ABG Glucose Oxyhemoglobin Sodium 136 L Potassium Chloride Carbon Dioxide BUN 78 H Creatinine 2.0 H Glucose 130 H POC Glucose 141 H Lactic Acid Calcium Ferritin AST Alkaline Phosphatase Magnesium Lactate Dehydrogenase Total Creatine Kinase CK-MB (CK-2) C-Reactive Protein Total Protein Albumin Troponin T HDL Cholesterol Arterial Blood Glucose Urine WBC (Auto) Urine Creatinine Urine Total Protein Phenytoin Coronavirus (PCR) Crossmatch 07/13/20 07/13/20 07/14/20 12:50 18:27 00:22 WBC RBC Hgb Hct MCHC RDW Lymph % (Auto) Kay % (Auto) Eos % (Auto) Lymph # Kay # Lymph # (Auto) Kay # (Auto) Eos # (Auto) Seg Neutrophils % Seg Neuts % (Manual) Lymphocytes % (Manual) Seg Neutrophils # Seg Neutrophils # Man Lymphocytes # (Manual) Monocytes % (Manual) Eosinophils % (Manual) Monocytes # (Manual) Eosinophils # (Manual) D-Dimer Heparin Anti-Xa Level ABG pH POC ABG pCO2 POC ABG pO2 ABG pO2 ABG HCO3 ABG O2 Saturation ABG Base Excess ABG Hemoglobin ABG Oxyhemoglobin VBG pH ABG Sodium ABG Potassium ABG Glucose Oxyhemoglobin Sodium Potassium Chloride Carbon Dioxide BUN Creatinine Glucose POC Glucose 146 H 149 H 157 H Lactic Acid Calcium Ferritin AST Alkaline Phosphatase Magnesium Lactate Dehydrogenase Total Creatine Kinase CK-MB (CK-2) C-Reactive Protein Total Protein Albumin Troponin T HDL Cholesterol Arterial Blood Glucose Urine WBC (Auto) Urine Creatinine Urine Total Protein Phenytoin Coronavirus (PCR) Crossmatch 07/14/20 07/14/20 07/14/20 05:43 08:04 12:12 WBC RBC Hgb Hct MCHC RDW Lymph % (Auto) Kay % (Auto) Eos % (Auto) Lymph # Kay # Lymph # (Auto) Kay # (Auto) Eos # (Auto) Seg Neutrophils % Seg Neuts % (Manual) Lymphocytes % (Manual) Seg Neutrophils # Seg Neutrophils # Man Lymphocytes # (Manual) Monocytes % (Manual) Eosinophils % (Manual) Monocytes # (Manual) Eosinophils # (Manual) D-Dimer Heparin Anti-Xa Level ABG pH POC ABG pCO2 POC ABG pO2 ABG pO2 ABG HCO3 ABG O2 Saturation ABG Base Excess ABG Hemoglobin ABG Oxyhemoglobin VBG pH ABG Sodium ABG Potassium ABG Glucose Oxyhemoglobin Sodium Potassium Chloride Carbon Dioxide BUN Creatinine Glucose POC Glucose 169 H 185 H Lactic Acid Calcium Ferritin AST Alkaline Phosphatase Magnesium Lactate Dehydrogenase Total Creatine Kinase CK-MB (CK-2) C-Reactive Protein Total Protein Albumin Troponin T HDL Cholesterol Arterial Blood Glucose Urine WBC (Auto) Urine Creatinine Urine Total Protein Phenytoin Coronavirus (PCR) Positive A Crossmatch 07/14/20 07/15/20 07/15/20 17:23 00:04 06:06 WBC RBC Hgb Hct MCHC RDW Lymph % (Auto) Kay % (Auto) Eos % (Auto) Lymph # Kay # Lymph # (Auto) Kay # (Auto) Eos # (Auto) Seg Neutrophils % Seg Neuts % (Manual) Lymphocytes % (Manual) Seg Neutrophils # Seg Neutrophils # Man Lymphocytes # (Manual) Monocytes % (Manual) Eosinophils % (Manual) Monocytes # (Manual) Eosinophils # (Manual) D-Dimer Heparin Anti-Xa Level ABG pH POC ABG pCO2 POC ABG pO2 ABG pO2 ABG HCO3 ABG O2 Saturation ABG Base Excess ABG Hemoglobin ABG Oxyhemoglobin VBG pH ABG Sodium ABG Potassium ABG Glucose Oxyhemoglobin Sodium Potassium Chloride Carbon Dioxide BUN Creatinine Glucose POC Glucose 138 H 121 H 140 H Lactic Acid Calcium Ferritin AST Alkaline Phosphatase Magnesium Lactate Dehydrogenase Total Creatine Kinase CK-MB (CK-2) C-Reactive Protein Total Protein Albumin Troponin T HDL Cholesterol Arterial Blood Glucose Urine WBC (Auto) Urine Creatinine Urine Total Protein Phenytoin Coronavirus (PCR) Crossmatch 07/15/20 07/15/20 07/15/20 12:00 17:53 23:53 WBC RBC Hgb Hct MCHC RDW Lymph % (Auto) Kay % (Auto) Eos % (Auto) Lymph # Kay # Lymph # (Auto) Kay # (Auto) Eos # (Auto) Seg Neutrophils % Seg Neuts % (Manual) Lymphocytes % (Manual) Seg Neutrophils # Seg Neutrophils # Man Lymphocytes # (Manual) Monocytes % (Manual) Eosinophils % (Manual) Monocytes # (Manual) Eosinophils # (Manual) D-Dimer Heparin Anti-Xa Level ABG pH POC ABG pCO2 POC ABG pO2 ABG pO2 ABG HCO3 ABG O2 Saturation ABG Base Excess ABG Hemoglobin ABG Oxyhemoglobin VBG pH ABG Sodium ABG Potassium ABG Glucose Oxyhemoglobin Sodium Potassium Chloride Carbon Dioxide BUN Creatinine Glucose POC Glucose 137 H 161 H 156 H Lactic Acid Calcium Ferritin AST Alkaline Phosphatase Magnesium Lactate Dehydrogenase Total Creatine Kinase CK-MB (CK-2) C-Reactive Protein Total Protein Albumin Troponin T HDL Cholesterol Arterial Blood Glucose Urine WBC (Auto) Urine Creatinine Urine Total Protein Phenytoin Coronavirus (PCR) Crossmatch 07/16/20 07/16/20 07/17/20 05:26 17:44 00:07 WBC RBC Hgb Hct MCHC RDW Lymph % (Auto) Kay % (Auto) Eos % (Auto) Lymph # Kay # Lymph # (Auto) Kay # (Auto) Eos # (Auto) Seg Neutrophils % Seg Neuts % (Manual) Lymphocytes % (Manual) Seg Neutrophils # Seg Neutrophils # Man Lymphocytes # (Manual) Monocytes % (Manual) Eosinophils % (Manual) Monocytes # (Manual) Eosinophils # (Manual) D-Dimer Heparin Anti-Xa Level ABG pH POC ABG pCO2 POC ABG pO2 ABG pO2 ABG HCO3 ABG O2 Saturation ABG Base Excess ABG Hemoglobin ABG Oxyhemoglobin VBG pH ABG Sodium ABG Potassium ABG Glucose Oxyhemoglobin Sodium Potassium Chloride Carbon Dioxide BUN Creatinine Glucose POC Glucose 152 H 126 H 189 H Lactic Acid Calcium Ferritin AST Alkaline Phosphatase Magnesium Lactate Dehydrogenase Total Creatine Kinase CK-MB (CK-2) C-Reactive Protein Total Protein Albumin Troponin T HDL Cholesterol Arterial Blood Glucose Urine WBC (Auto) Urine Creatinine Urine Total Protein Phenytoin Coronavirus (PCR) Crossmatch 07/17/20 07/17/20 07/17/20 12:06 18:20 23:25 WBC RBC Hgb Hct MCHC RDW Lymph % (Auto) Kay % (Auto) Eos % (Auto) Lymph # Kay # Lymph # (Auto) Kay # (Auto) Eos # (Auto) Seg Neutrophils % Seg Neuts % (Manual) Lymphocytes % (Manual) Seg Neutrophils # Seg Neutrophils # Man Lymphocytes # (Manual) Monocytes % (Manual) Eosinophils % (Manual) Monocytes # (Manual) Eosinophils # (Manual) D-Dimer Heparin Anti-Xa Level ABG pH POC ABG pCO2 POC ABG pO2 ABG pO2 ABG HCO3 ABG O2 Saturation ABG Base Excess ABG Hemoglobin ABG Oxyhemoglobin VBG pH ABG Sodium ABG Potassium ABG Glucose Oxyhemoglobin Sodium Potassium Chloride Carbon Dioxide BUN Creatinine Glucose POC Glucose 155 H 206 H 161 H Lactic Acid Calcium Ferritin AST Alkaline Phosphatase Magnesium Lactate Dehydrogenase Total Creatine Kinase CK-MB (CK-2) C-Reactive Protein Total Protein Albumin Troponin T HDL Cholesterol Arterial Blood Glucose Urine WBC (Auto) Urine Creatinine Urine Total Protein Phenytoin Coronavirus (PCR) Crossmatch 07/18/20 07/18/20 07/18/20 04:24 05:16 11:53 WBC RBC Hgb Hct MCHC RDW Lymph % (Auto) Kay % (Auto) Eos % (Auto) Lymph # Kay # Lymph # (Auto) Kay # (Auto) Eos # (Auto) Seg Neutrophils % Seg Neuts % (Manual) Lymphocytes % (Manual) Seg Neutrophils # Seg Neutrophils # Man Lymphocytes # (Manual) Monocytes % (Manual) Eosinophils % (Manual) Monocytes # (Manual) Eosinophils # (Manual) D-Dimer Heparin Anti-Xa Level ABG pH POC ABG pCO2 POC ABG pO2 ABG pO2 ABG HCO3 ABG O2 Saturation ABG Base Excess ABG Hemoglobin 8.8 L ABG Oxyhemoglobin VBG pH ABG Sodium 131.6 L ABG Potassium 4.9 H ABG Glucose 131 H Oxyhemoglobin Sodium Potassium Chloride Carbon Dioxide BUN Creatinine Glucose POC Glucose 140 H 176 H Lactic Acid Calcium Ferritin AST Alkaline Phosphatase Magnesium Lactate Dehydrogenase Total Creatine Kinase CK-MB (CK-2) C-Reactive Protein Total Protein Albumin Troponin T HDL Cholesterol Arterial Blood Glucose 131 H Urine WBC (Auto) Urine Creatinine Urine Total Protein Phenytoin Coronavirus (PCR) Crossmatch 07/18/20 07/18/20 07/19/20 18:11 23:51 01:05 WBC RBC 2.76 L Hgb 7.9 L Hct 24.5 L MCHC RDW 17.6 H Lymph % (Auto) 11.6 L Kay % (Auto) 13.1 H Eos % (Auto) Lymph # Kay # Lymph # (Auto) 1.0 L Kay # (Auto) 1.1 H Eos # (Auto) Seg Neutrophils % 70.9 H Seg Neuts % (Manual) Lymphocytes % (Manual) Seg Neutrophils # Seg Neutrophils # Man Lymphocytes # (Manual) Monocytes % (Manual) Eosinophils % (Manual) Monocytes # (Manual) Eosinophils # (Manual) D-Dimer Heparin Anti-Xa Level ABG pH POC ABG pCO2 POC ABG pO2 ABG pO2 ABG HCO3 ABG O2 Saturation ABG Base Excess ABG Hemoglobin ABG Oxyhemoglobin VBG pH ABG Sodium ABG Potassium ABG Glucose Oxyhemoglobin Sodium Potassium Chloride Carbon Dioxide BUN Creatinine Glucose POC Glucose 143 H 159 H Lactic Acid Calcium Ferritin AST Alkaline Phosphatase Magnesium Lactate Dehydrogenase Total Creatine Kinase CK-MB (CK-2) C-Reactive Protein Total Protein Albumin Troponin T HDL Cholesterol Arterial Blood Glucose Urine WBC (Auto) Urine Creatinine Urine Total Protein Phenytoin Coronavirus (PCR) Crossmatch 07/19/20 07/19/20 07/19/20 01:05 05:54 12:46 WBC RBC Hgb Hct MCHC RDW Lymph % (Auto) Kay % (Auto) Eos % (Auto) Lymph # Kay # Lymph # (Auto) Kay # (Auto) Eos # (Auto) Seg Neutrophils % Seg Neuts % (Manual) Lymphocytes % (Manual) Seg Neutrophils # Seg Neutrophils # Man Lymphocytes # (Manual) Monocytes % (Manual) Eosinophils % (Manual) Monocytes # (Manual) Eosinophils # (Manual) D-Dimer Heparin Anti-Xa Level ABG pH POC ABG pCO2 POC ABG pO2 ABG pO2 ABG HCO3 ABG O2 Saturation ABG Base Excess ABG Hemoglobin ABG Oxyhemoglobin VBG pH ABG Sodium ABG Potassium ABG Glucose Oxyhemoglobin Sodium Potassium Chloride Carbon Dioxide BUN 86 H Creatinine 1.7 H Glucose 149 H POC Glucose 176 H 127 H Lactic Acid Calcium Ferritin AST Alkaline Phosphatase Magnesium Lactate Dehydrogenase Total Creatine Kinase CK-MB (CK-2) C-Reactive Protein Total Protein Albumin Troponin T HDL Cholesterol Arterial Blood Glucose Urine WBC (Auto) Urine Creatinine Urine Total Protein Phenytoin Coronavirus (PCR) Crossmatch 07/19/20 07/20/20 07/20/20 17:48 00:34 05:28 WBC RBC Hgb Hct MCHC RDW Lymph % (Auto) Kay % (Auto) Eos % (Auto) Lymph # Kay # Lymph # (Auto) Kay # (Auto) Eos # (Auto) Seg Neutrophils % Seg Neuts % (Manual) Lymphocytes % (Manual) Seg Neutrophils # Seg Neutrophils # Man Lymphocytes # (Manual) Monocytes % (Manual) Eosinophils % (Manual) Monocytes # (Manual) Eosinophils # (Manual) D-Dimer Heparin Anti-Xa Level ABG pH POC ABG pCO2 POC ABG pO2 ABG pO2 ABG HCO3 ABG O2 Saturation ABG Base Excess ABG Hemoglobin ABG Oxyhemoglobin VBG pH ABG Sodium ABG Potassium ABG Glucose Oxyhemoglobin Sodium Potassium Chloride Carbon Dioxide BUN Creatinine Glucose POC Glucose 123 H 147 H 110 H Lactic Acid Calcium Ferritin AST Alkaline Phosphatase Magnesium Lactate Dehydrogenase Total Creatine Kinase CK-MB (CK-2) C-Reactive Protein Total Protein Albumin Troponin T HDL Cholesterol Arterial Blood Glucose Urine WBC (Auto) Urine Creatinine Urine Total Protein Phenytoin Coronavirus (PCR) Crossmatch 07/20/20 07/20/20 07/21/20 12:10 17:00 00:11 WBC RBC Hgb Hct MCHC RDW Lymph % (Auto) Kay % (Auto) Eos % (Auto) Lymph # Kay # Lymph # (Auto) Kay # (Auto) Eos # (Auto) Seg Neutrophils % Seg Neuts % (Manual) Lymphocytes % (Manual) Seg Neutrophils # Seg Neutrophils # Man Lymphocytes # (Manual) Monocytes % (Manual) Eosinophils % (Manual) Monocytes # (Manual) Eosinophils # (Manual) D-Dimer Heparin Anti-Xa Level ABG pH POC ABG pCO2 POC ABG pO2 ABG pO2 ABG HCO3 ABG O2 Saturation ABG Base Excess ABG Hemoglobin ABG Oxyhemoglobin VBG pH ABG Sodium ABG Potassium ABG Glucose Oxyhemoglobin Sodium Potassium Chloride Carbon Dioxide BUN Creatinine Glucose POC Glucose 149 H 173 H 128 H Lactic Acid Calcium Ferritin AST Alkaline Phosphatase Magnesium Lactate Dehydrogenase Total Creatine Kinase CK-MB (CK-2) C-Reactive Protein Total Protein Albumin Troponin T HDL Cholesterol Arterial Blood Glucose Urine WBC (Auto) Urine Creatinine Urine Total Protein Phenytoin Coronavirus (PCR) Crossmatch 07/21/20 07/21/20 07/21/20 05:30 12:21 18:17 WBC RBC Hgb Hct MCHC RDW Lymph % (Auto) Kay % (Auto) Eos % (Auto) Lymph # Kay # Lymph # (Auto) Kay # (Auto) Eos # (Auto) Seg Neutrophils % Seg Neuts % (Manual) Lymphocytes % (Manual) Seg Neutrophils # Seg Neutrophils # Man Lymphocytes # (Manual) Monocytes % (Manual) Eosinophils % (Manual) Monocytes # (Manual) Eosinophils # (Manual) D-Dimer Heparin Anti-Xa Level ABG pH POC ABG pCO2 POC ABG pO2 ABG pO2 ABG HCO3 ABG O2 Saturation ABG Base Excess ABG Hemoglobin ABG Oxyhemoglobin VBG pH ABG Sodium ABG Potassium ABG Glucose Oxyhemoglobin Sodium Potassium Chloride Carbon Dioxide BUN Creatinine Glucose POC Glucose 153 H 144 H 160 H Lactic Acid Calcium Ferritin AST Alkaline Phosphatase Magnesium Lactate Dehydrogenase Total Creatine Kinase CK-MB (CK-2) C-Reactive Protein Total Protein Albumin Troponin T HDL Cholesterol Arterial Blood Glucose Urine WBC (Auto) Urine Creatinine Urine Total Protein Phenytoin Coronavirus (PCR) Crossmatch 07/22/20 07/22/20 07/22/20 00:45 05:52 12:03 WBC RBC Hgb Hct MCHC RDW Lymph % (Auto) Kay % (Auto) Eos % (Auto) Lymph # Kay # Lymph # (Auto) Kay # (Auto) Eos # (Auto) Seg Neutrophils % Seg Neuts % (Manual) Lymphocytes % (Manual) Seg Neutrophils # Seg Neutrophils # Man Lymphocytes # (Manual) Monocytes % (Manual) Eosinophils % (Manual) Monocytes # (Manual) Eosinophils # (Manual) D-Dimer Heparin Anti-Xa Level ABG pH POC ABG pCO2 POC ABG pO2 ABG pO2 ABG HCO3 ABG O2 Saturation ABG Base Excess ABG Hemoglobin ABG Oxyhemoglobin VBG pH ABG Sodium ABG Potassium ABG Glucose Oxyhemoglobin Sodium Potassium Chloride Carbon Dioxide BUN Creatinine Glucose POC Glucose 128 H 126 H 157 H Lactic Acid Calcium Ferritin AST Alkaline Phosphatase Magnesium Lactate Dehydrogenase Total Creatine Kinase CK-MB (CK-2) C-Reactive Protein Total Protein Albumin Troponin T HDL Cholesterol Arterial Blood Glucose Urine WBC (Auto) Urine Creatinine Urine Total Protein Phenytoin Coronavirus (PCR) Crossmatch 07/22/20 07/22/20 07/23/20 18:23 23:20 06:06 WBC RBC Hgb Hct MCHC RDW Lymph % (Auto) Kay % (Auto) Eos % (Auto) Lymph # Kay # Lymph # (Auto) Kay # (Auto) Eos # (Auto) Seg Neutrophils % Seg Neuts % (Manual) Lymphocytes % (Manual) Seg Neutrophils # Seg Neutrophils # Man Lymphocytes # (Manual) Monocytes % (Manual) Eosinophils % (Manual) Monocytes # (Manual) Eosinophils # (Manual) D-Dimer Heparin Anti-Xa Level ABG pH POC ABG pCO2 POC ABG pO2 ABG pO2 ABG HCO3 ABG O2 Saturation ABG Base Excess ABG Hemoglobin ABG Oxyhemoglobin VBG pH ABG Sodium ABG Potassium ABG Glucose Oxyhemoglobin Sodium Potassium Chloride Carbon Dioxide BUN Creatinine Glucose POC Glucose 152 H 122 H 143 H Lactic Acid Calcium Ferritin AST Alkaline Phosphatase Magnesium Lactate Dehydrogenase Total Creatine Kinase CK-MB (CK-2) C-Reactive Protein Total Protein Albumin Troponin T HDL Cholesterol Arterial Blood Glucose Urine WBC (Auto) Urine Creatinine Urine Total Protein Phenytoin Coronavirus (PCR) Crossmatch 07/23/20 07/23/20 07/23/20 12:11 17:38 19:23 WBC RBC Hgb Hct MCHC RDW Lymph % (Auto) Kay % (Auto) Eos % (Auto) Lymph # Kay # Lymph # (Auto) Kay # (Auto) Eos # (Auto) Seg Neutrophils % Seg Neuts % (Manual) Lymphocytes % (Manual) Seg Neutrophils # Seg Neutrophils # Man Lymphocytes # (Manual) Monocytes % (Manual) Eosinophils % (Manual) Monocytes # (Manual) Eosinophils # (Manual) D-Dimer Heparin Anti-Xa Level ABG pH POC ABG pCO2 POC ABG pO2 ABG pO2 ABG HCO3 ABG O2 Saturation ABG Base Excess ABG Hemoglobin ABG Oxyhemoglobin VBG pH ABG Sodium ABG Potassium ABG Glucose Oxyhemoglobin Sodium 129 L D Potassium 5.8 H Chloride 95.6 L Carbon Dioxide BUN 98 H Creatinine 2.1 H Glucose 167 H POC Glucose 210 H 181 H Lactic Acid Calcium Ferritin AST Alkaline Phosphatase Magnesium Lactate Dehydrogenase Total Creatine Kinase CK-MB (CK-2) C-Reactive Protein Total Protein Albumin 2.2 L Troponin T HDL Cholesterol Arterial Blood Glucose Urine WBC (Auto) Urine Creatinine Urine Total Protein Phenytoin Coronavirus (PCR) Crossmatch 07/24/20 07/24/20 07/24/20 00:00 04:29 04:29 WBC RBC 2.53 L Hgb 7.5 L Hct 22.8 L MCHC RDW 16.8 H Lymph % (Auto) 9.4 L Kay % (Auto) 10.4 H Eos % (Auto) 5.9 H Lymph # Kay # Lymph # (Auto) 0.8 L Kay # (Auto) 0.9 H Eos # (Auto) 0.5 H Seg Neutrophils % 73.5 H Seg Neuts % (Manual) Lymphocytes % (Manual) Seg Neutrophils # Seg Neutrophils # Man Lymphocytes # (Manual) Monocytes % (Manual) Eosinophils % (Manual) Monocytes # (Manual) Eosinophils # (Manual) D-Dimer Heparin Anti-Xa Level ABG pH POC ABG pCO2 POC ABG pO2 ABG pO2 ABG HCO3 ABG O2 Saturation ABG Base Excess ABG Hemoglobin ABG Oxyhemoglobin VBG pH ABG Sodium ABG Potassium ABG Glucose Oxyhemoglobin Sodium Potassium Chloride Carbon Dioxide BUN Creatinine Glucose POC Glucose 201 H Lactic Acid Calcium Ferritin AST Alkaline Phosphatase Magnesium Lactate Dehydrogenase Total Creatine Kinase CK-MB (CK-2) C-Reactive Protein Total Protein Albumin Troponin T HDL Cholesterol Arterial Blood Glucose Urine WBC (Auto) Urine Creatinine Urine Total Protein Phenytoin 9.4 L Coronavirus (PCR) Crossmatch 07/24/20 07/24/20 07/24/20 04:29 05:11 12:14 WBC RBC Hgb Hct MCHC RDW Lymph % (Auto) Kay % (Auto) Eos % (Auto) Lymph # Kay # Lymph # (Auto) Kay # (Auto) Eos # (Auto) Seg Neutrophils % Seg Neuts % (Manual) Lymphocytes % (Manual) Seg Neutrophils # Seg Neutrophils # Man Lymphocytes # (Manual) Monocytes % (Manual) Eosinophils % (Manual) Monocytes # (Manual) Eosinophils # (Manual) D-Dimer Heparin Anti-Xa Level ABG pH POC ABG pCO2 POC ABG pO2 ABG pO2 ABG HCO3 ABG O2 Saturation ABG Base Excess ABG Hemoglobin ABG Oxyhemoglobin VBG pH ABG Sodium ABG Potassium ABG Glucose Oxyhemoglobin Sodium 134 L Potassium 5.5 H Chloride Carbon Dioxide BUN 97 H Creatinine 2.2 H Glucose 149 H POC Glucose 142 H 146 H Lactic Acid Calcium Ferritin AST Alkaline Phosphatase Magnesium 2.60 H Lactate Dehydrogenase Total Creatine Kinase CK-MB (CK-2) C-Reactive Protein Total Protein Albumin Troponin T HDL Cholesterol Arterial Blood Glucose Urine WBC (Auto) Urine Creatinine Urine Total Protein Phenytoin Coronavirus (PCR) Crossmatch 07/24/20 07/24/20 07/25/20 18:12 21:00 00:08 WBC RBC Hgb Hct MCHC RDW Lymph % (Auto) Kay % (Auto) Eos % (Auto) Lymph # Kay # Lymph # (Auto) Kay # (Auto) Eos # (Auto) Seg Neutrophils % Seg Neuts % (Manual) Lymphocytes % (Manual) Seg Neutrophils # Seg Neutrophils # Man Lymphocytes # (Manual) Monocytes % (Manual) Eosinophils % (Manual) Monocytes # (Manual) Eosinophils # (Manual) D-Dimer Heparin Anti-Xa Level ABG pH POC ABG pCO2 POC ABG pO2 ABG pO2 ABG HCO3 ABG O2 Saturation ABG Base Excess ABG Hemoglobin ABG Oxyhemoglobin VBG pH ABG Sodium ABG Potassium ABG Glucose Oxyhemoglobin Sodium Potassium Chloride Carbon Dioxide BUN Creatinine Glucose POC Glucose 182 H 170 H 129 H Lactic Acid Calcium Ferritin AST Alkaline Phosphatase Magnesium Lactate Dehydrogenase Total Creatine Kinase CK-MB (CK-2) C-Reactive Protein Total Protein Albumin Troponin T HDL Cholesterol Arterial Blood Glucose Urine WBC (Auto) Urine Creatinine Urine Total Protein Phenytoin Coronavirus (PCR) Crossmatch 07/25/20 07/25/20 07/25/20 04:24 04:24 12:19 WBC RBC 2.51 L Hgb 7.5 L Hct 22.3 L MCHC RDW 17.4 H Lymph % (Auto) Kay % (Auto) Eos % (Auto) Lymph # Kay # Lymph # (Auto) Kay # (Auto) Eos # (Auto) Seg Neutrophils % Seg Neuts % (Manual) Lymphocytes % (Manual) Seg Neutrophils # Seg Neutrophils # Man Lymphocytes # (Manual) Monocytes % (Manual) Eosinophils % (Manual) Monocytes # (Manual) Eosinophils # (Manual) D-Dimer Heparin Anti-Xa Level ABG pH POC ABG pCO2 POC ABG pO2 ABG pO2 ABG HCO3 ABG O2 Saturation ABG Base Excess ABG Hemoglobin ABG Oxyhemoglobin VBG pH ABG Sodium ABG Potassium ABG Glucose Oxyhemoglobin Sodium 132 L Potassium Chloride 95.1 L Carbon Dioxide 21 L BUN 95 H Creatinine 2.5 H Glucose 108 H POC Glucose 122 H Lactic Acid Calcium Ferritin AST Alkaline Phosphatase Magnesium Lactate Dehydrogenase Total Creatine Kinase CK-MB (CK-2) C-Reactive Protein Total Protein Albumin Troponin T HDL Cholesterol Arterial Blood Glucose Urine WBC (Auto) Urine Creatinine Urine Total Protein Phenytoin Coronavirus (PCR) Crossmatch 07/25/20 07/25/20 07/26/20 18:11 23:24 04:22 WBC RBC Hgb Hct MCHC RDW Lymph % (Auto) Kay % (Auto) Eos % (Auto) Lymph # Kay # Lymph # (Auto) Kay # (Auto) Eos # (Auto) Seg Neutrophils % Seg Neuts % (Manual) Lymphocytes % (Manual) Seg Neutrophils # Seg Neutrophils # Man Lymphocytes # (Manual) Monocytes % (Manual) Eosinophils % (Manual) Monocytes # (Manual) Eosinophils # (Manual) D-Dimer Heparin Anti-Xa Level ABG pH POC ABG pCO2 POC ABG pO2 ABG pO2 ABG HCO3 ABG O2 Saturation ABG Base Excess ABG Hemoglobin ABG Oxyhemoglobin VBG pH ABG Sodium ABG Potassium ABG Glucose Oxyhemoglobin Sodium 132 L Potassium Chloride 96.2 L Carbon Dioxide 21 L BUN 99 H Creatinine 2.5 H Glucose 132 H POC Glucose 137 H 117 H Lactic Acid Calcium 8.2 L Ferritin AST Alkaline Phosphatase Magnesium Lactate Dehydrogenase Total Creatine Kinase CK-MB (CK-2) C-Reactive Protein Total Protein Albumin Troponin T HDL Cholesterol Arterial Blood Glucose Urine WBC (Auto) Urine Creatinine Urine Total Protein Phenytoin Coronavirus (PCR) Crossmatch 07/26/20 07/26/20 07/26/20 05:58 12:21 17:31 WBC RBC Hgb Hct MCHC RDW Lymph % (Auto) Kay % (Auto) Eos % (Auto) Lymph # Kay # Lymph # (Auto) Kay # (Auto) Eos # (Auto) Seg Neutrophils % Seg Neuts % (Manual) Lymphocytes % (Manual) Seg Neutrophils # Seg Neutrophils # Man Lymphocytes # (Manual) Monocytes % (Manual) Eosinophils % (Manual) Monocytes # (Manual) Eosinophils # (Manual) D-Dimer Heparin Anti-Xa Level ABG pH POC ABG pCO2 POC ABG pO2 ABG pO2 ABG HCO3 ABG O2 Saturation ABG Base Excess ABG Hemoglobin ABG Oxyhemoglobin VBG pH ABG Sodium ABG Potassium ABG Glucose Oxyhemoglobin Sodium Potassium Chloride Carbon Dioxide BUN Creatinine Glucose POC Glucose 110 H 142 H 180 H Lactic Acid Calcium Ferritin AST Alkaline Phosphatase Magnesium Lactate Dehydrogenase Total Creatine Kinase CK-MB (CK-2) C-Reactive Protein Total Protein Albumin Troponin T HDL Cholesterol Arterial Blood Glucose Urine WBC (Auto) Urine Creatinine Urine Total Protein Phenytoin Coronavirus (PCR) Crossmatch 07/26/20 07/27/20 07/27/20 23:36 03:36 05:36 WBC RBC 2.49 L Hgb 7.3 L Hct 22.2 L MCHC RDW 17.2 H Lymph % (Auto) 11.0 L Kay % (Auto) 11.7 H Eos % (Auto) Lymph # Kay # Lymph # (Auto) 0.8 L Kay # (Auto) 0.9 H Eos # (Auto) Seg Neutrophils % 72.3 H Seg Neuts % (Manual) Lymphocytes % (Manual) Seg Neutrophils # Seg Neutrophils # Man Lymphocytes # (Manual) Monocytes % (Manual) Eosinophils % (Manual) Monocytes # (Manual) Eosinophils # (Manual) D-Dimer Heparin Anti-Xa Level ABG pH POC ABG pCO2 POC ABG pO2 ABG pO2 ABG HCO3 ABG O2 Saturation ABG Base Excess ABG Hemoglobin ABG Oxyhemoglobin VBG pH ABG Sodium ABG Potassium ABG Glucose Oxyhemoglobin Sodium Potassium Chloride Carbon Dioxide BUN Creatinine Glucose POC Glucose 162 H 118 H Lactic Acid Calcium Ferritin AST Alkaline Phosphatase Magnesium Lactate Dehydrogenase Total Creatine Kinase CK-MB (CK-2) C-Reactive Protein Total Protein Albumin Troponin T HDL Cholesterol Arterial Blood Glucose Urine WBC (Auto) Urine Creatinine Urine Total Protein Phenytoin Coronavirus (PCR) Crossmatch 07/27/20 07/27/20 07/27/20 05:36 12:19 17:36 WBC RBC Hgb Hct MCHC RDW Lymph % (Auto) Kay % (Auto) Eos % (Auto) Lymph # Kay # Lymph # (Auto) Kay # (Auto) Eos # (Auto) Seg Neutrophils % Seg Neuts % (Manual) Lymphocytes % (Manual) Seg Neutrophils # Seg Neutrophils # Man Lymphocytes # (Manual) Monocytes % (Manual) Eosinophils % (Manual) Monocytes # (Manual) Eosinophils # (Manual) D-Dimer Heparin Anti-Xa Level ABG pH POC ABG pCO2 POC ABG pO2 ABG pO2 ABG HCO3 ABG O2 Saturation ABG Base Excess ABG Hemoglobin ABG Oxyhemoglobin VBG pH ABG Sodium ABG Potassium ABG Glucose Oxyhemoglobin Sodium 135 L Potassium 5.3 H Chloride Carbon Dioxide 21 L BUN 103 H Creatinine 2.6 H Glucose 113 H POC Glucose 131 H 151 H Lactic Acid Calcium 8.1 L Ferritin AST Alkaline Phosphatase Magnesium Lactate Dehydrogenase Total Creatine Kinase CK-MB (CK-2) C-Reactive Protein Total Protein Albumin Troponin T HDL Cholesterol Arterial Blood Glucose Urine WBC (Auto) Urine Creatinine Urine Total Protein Phenytoin Coronavirus (PCR) Crossmatch 07/27/20 07/28/20 07/28/20 23:29 04:30 04:30 WBC RBC 2.50 L Hgb 7.3 L Hct 22.2 L MCHC RDW 17.3 H Lymph % (Auto) 8.7 L Kay % (Auto) 8.3 H Eos % (Auto) Lymph # Kay # Lymph # (Auto) 0.7 L Kay # (Auto) Eos # (Auto) Seg Neutrophils % 79.1 H Seg Neuts % (Manual) Lymphocytes % (Manual) Seg Neutrophils # Seg Neutrophils # Man Lymphocytes # (Manual) Monocytes % (Manual) Eosinophils % (Manual) Monocytes # (Manual) Eosinophils # (Manual) D-Dimer Heparin Anti-Xa Level ABG pH POC ABG pCO2 POC ABG pO2 ABG pO2 ABG HCO3 ABG O2 Saturation ABG Base Excess ABG Hemoglobin ABG Oxyhemoglobin VBG pH ABG Sodium ABG Potassium ABG Glucose Oxyhemoglobin Sodium 135 L Potassium 5.2 H Chloride 96.8 L Carbon Dioxide 20 L BUN 107 H Creatinine 2.9 H Glucose POC Glucose 124 H Lactic Acid Calcium 8.2 L Ferritin AST Alkaline Phosphatase Magnesium 2.70 H Lactate Dehydrogenase Total Creatine Kinase CK-MB (CK-2) C-Reactive Protein Total Protein Albumin Troponin T HDL Cholesterol Arterial Blood Glucose Urine WBC (Auto) Urine Creatinine Urine Total Protein Phenytoin Coronavirus (PCR) Crossmatch 07/29/20 07/29/20 00:11 06:45 WBC RBC Hgb Hct MCHC RDW Lymph % (Auto) Kay % (Auto) Eos % (Auto) Lymph # Kay # Lymph # (Auto) Kay # (Auto) Eos # (Auto) Seg Neutrophils % Seg Neuts % (Manual) Lymphocytes % (Manual) Seg Neutrophils # Seg Neutrophils # Man Lymphocytes # (Manual) Monocytes % (Manual) Eosinophils % (Manual) Monocytes # (Manual) Eosinophils # (Manual) D-Dimer Heparin Anti-Xa Level ABG pH POC ABG pCO2 POC ABG pO2 ABG pO2 ABG HCO3 ABG O2 Saturation ABG Base Excess ABG Hemoglobin ABG Oxyhemoglobin VBG pH ABG Sodium ABG Potassium ABG Glucose Oxyhemoglobin Sodium Potassium Chloride Carbon Dioxide BUN Creatinine Glucose POC Glucose 143 H 179 H Lactic Acid Calcium Ferritin AST Alkaline Phosphatase Magnesium Lactate Dehydrogenase Total Creatine Kinase CK-MB (CK-2) C-Reactive Protein Total Protein Albumin Troponin T HDL Cholesterol Arterial Blood Glucose Urine WBC (Auto) Urine Creatinine Urine Total Protein Phenytoin Coronavirus (PCR) Crossmatch Chest x-ray: pending Allied health notes reviewed: nursing
[2020-07-29 13:29] LABS: Hematocrit 20.9 % (30.3-42.9); Hemoglobin 7.1 gm/dl (10.1-14.3); Mean Corpuscular HGB Conc 34 % (30-34); Mean Corpuscular Volume 87 fl (79-97); Platelet Count 430 K/mm3 (140-440); Red Cell Distribution Width 17.5 % (13.2-15.2)
[2020-07-29 13:45] LABS: Calcium 7.9 mg/dL (8.4-10.2)
[2020-07-29 14:30] LABS: Basophils % (Manual) 0 % (0.0-1.8); Eosinophils % (Manual) 0 % (0.0-4.3); Total Cells Counted 100
[2020-07-29 14:31] LABS: Platelet Estimate Consistent w Auto; RBC Morphology Normal
[2020-07-29 14:50] LABS: Hepatitis B Surface Antigen Non-Reactive (Negative)
[2020-07-29 14:51] LABS: Hepatitis C Virus Antibody Non-Reactive (NonReactive)
--- NOTE | 2020-07-29 15:47 | Event Note ---
Date: 07/29/20 Informed by the child welfare caseworker, Zeny, that the son contacted her stating that the family has decided against Dialysis and wishes to send their mother to Hospice. We will hold off on placing a Vascath at this time. Please re-consult if the family decides to change this decision.
--- NOTE | 2020-07-29 16:27 | Event Note ---
Date: 07/29/20 Patient's chart reviewed. No change in mental status. Patient's last COVID test was positive. Nephrology recommended starting hemodialysis. Discussed case with KAY Moura. The patient's family is declining dialysis and looking to move forward with hospice. Will sign off at this time. If trach and PEG is reconsidered, please reconsult. Thank you for this consultation. Please call with any questions or concerns.
[2020-07-29] MEDS: INSULIN GLARGINE 100 UNITS/ML SUB-Q SCH (22:13)
[2020-07-30] MEDS: hydrALAZINE 100 MG TAB PO SCH ×4 (07:50→20:23)
[2020-07-30] MEDS: HEPARIN 5,000 UNIT/1 ML VIAL SUB-Q SCH ×3 (07:50→22:08)
[2020-07-30] MEDS: INSULIN LISPRO 100 UNIT/ML VIAL 3 mL SUB-Q SCH ×4 (07:51→17:39)
--- NOTE | 2020-07-30 09:25 | Progress Note ---
Assessment and Plan Assessment and plan: 64 YO Female with a medical history of HTN, Diastolic CHF, Pulmonary HTN, DM, Obesity Hypoventilation Syndrome presents to ED for evaluation of shortness of breath. As per staff, the EMS was notified for difficulty breathing. Upon arrival to the patient's home the patient was found to be in distress and was subsequently transported to [facility] for further evaluation and care. In route to [facility] the patient developed cardiac arrest and was treated in accordance with ACLS protocol with return of ROSC. Patient was seen and evaluated in the emergency department and was intubated and placed on ventilatory support. Patient admitted to ICU. Critical care team consulted in ED. She was found to have COVID-19 infection and was started on steroids and remdesivir. ID was consulted. Cardiology was consulted for her systolic heart failure and cardiac arrest. Patient completed treatment for COVID-19, then develop superimposed bacterial pneumonia with Klebsiella. She is now extubated, 06/12/2020 but remains confused and requiring high flow O2 and intermittent BiPAP. Patient had another cardiac arrest reintubated 06/26/2020, currently in ICU vent dependent, unable to do trach and PEG due to persistent COVID-19 positive state, as well as anoxic brain injury, unable to get MRI , neurology following. Assessment and plan: 05/28/2020 COVID-19 test positive 06/29/2020 COVID-19 test positive 07/14/2020 COVID-19 test positive --Acute hypoxemic respiratory failure; vent dependent intubated on admission, extubated on 06/12/20 then placed on high flow o2 patient developed another respiratory arrest on 06/26 - reintubated Patient not tolerating weaning parameters CC following, Surgery evaluated the patient for trach and PEG COVID-19 test positive x3, trach and PEG pending neuro evaluation to evaluate severity of anoxic brain injury -- Hypertension; well controlled Increase hydralazine dose to 75 mg 3 times a day Continue amlodipine, coreg, clonidine and hydralazine And minoxidil, closely monitor blood pressures PRN labetalol --s/p cardiopulmonary arrest on admission, 06/26 and 07/01, s/p CPR per ACLS protocol, refer to code sheet --Possible anoxic brain injury, neurology consulted, neuro requested MRI brain, EEG MRI brain could not be done due to body habitus, EEG not done --Seizures seizure precautions; continue Keppra, follow EEG neurology following --Acute renal failure : creatinine 2.4-2.5-2.9-1.7 --Acute renal failure : creatinine 2.4-2.5-2.9-1.7 Vasomotor nephropathy, gentle hydration Avoid nephrotoxins, monitor renal function Reconsult nephrology if needed --Rectal bleeding; resolved --Acute blood loss anemia; total 3 units PRBC transfused Closely monitor H&H, GI following, no plans of endoscopy --Severe sepsis; completed antibiotics per ID persistently positive for COVID-19 and Klebsiella pneumoniae --COVID-19 b/l PNA Completed remdesivir on 06/02 Completed dexamethasone - Last dose 06/07 COVID 19 test positive x 3 during this admission --Superficial left cephalic vein DVT/elevated D-dimers[COVID 19] Patient initially started on heparin drip from 05/29/20 D-dimers improved [phone] treated with Eliquis 5 mg twice a day for 1 week[per ID] stop date 06/26/2020 -- Acute toxic metabolic encephalopathy, POA likely from sepsis and s/p cardiac arrest with possible anoxic injury -- Acute renal failure: likely ATN avoid nephrotoxins, reconsult nephrology if no improvement --Klebsiella pneumonia: ID evaluated completed second round of 5 days of cefepime on 07/04/2020 --Acute on chronic systolic heart failure Cardiology following. Ef 45% -- Coffee ground emesis -Stress ulcers Possible stress ulcers, On PPI H/H again dropped - transfuse GI evaluated --Transaminitis. Etiology likely from COVID-19. cont to monitor --Hyperkalemia; calcium gluconate, Kayexalate, monitor electrolytes --Shock; fluid bolus, Levophed per protocol Patient critically ill poor prognosis Currently patient is hypertensive -- DVT prophylaxis Eliquis, SCD to bilateral lower extremities while in bed -- Advance care planning Patient is critically ill with multiple medical problems Poor prognosis, family updated and requesting full code The high probability of a clinically significant, sudden or life threatening deterioration of the [CVS, renal, respiratory, SAP GATHERER] system(s) required my full and direct attention, intervention and personal management. The aggregate critical care time was [35] minutes. This time is in addition to time spent performing reported procedures but includes the following: [x] Data Review and interpretation [x] Patient assessment and monitoring of vital signs [x] Documentation [x] Medication orders and management 07/11/2020. Patient currently on mechanical ventilation AC/PRVC with rate of 12, tidal volume 450, FiO2 30% and PEEP of 6 07/12/2020. Patient placed on CPAP with pressure support of 10 and tolerating well. Continue PSB trials as tolerated. 07/13/2020. Patient currently with AC mode rate 12, tidal volume 450, FiO2 30% and PEEP of 6. Surgery has been consulted for trach and PEG placement. Recall nephrology for renal insufficiency. 07/14/20; surgery evaluated for trach and PEG , pending call with test which is is positive today COVID-19 test positive x3 since admission 07/16; trach and PEG pending neuro evaluation 07/17; vent dependent, trach PEG pending neuro evaluation, pending MRI EEG study[already ordered] 07/18; unable to do MRI, due to body habitus, morbid obesity, radiology consult Patient critically ill very poor prognosis 07/19; remains intubated on vent, clinically no change 07/20; unable to wean, needs trach and PEG, need MRI , unable to do due to body habitus 07/21; clinically no change, remains intubated on ventilatory support 07/22; I recommend family meeting, to discuss the goals of treatment, discussed with case management 07/23; patient's blood pressures in the lower range, will hold antihypertensives, fluid bolus, if no improvement Levophed per protocol 07/24: Patient remains critically ill, unable to obtain MRI at this facility and unstable for transfer, Will reconsult Nephrology as creatinine now worse, with worsening Hypotension and Hyperkalemia- Overnight the patient required pressors Secondary to Hypotension, Will place PICC line. Will give kayxalate, continue to hold all BP meds. Hyponatermia improving. 07/24; patient remains to critically ill, nephrology consult appreciated, creatinine is worsening. Hypotension resolved with. Still patient is hypernatremic 07/26; patient is hypertensive and her blood pressure medications were resumed and as needed medications also started. Patient is being followed by nephrology for hyponatremia and AVANI. Patient has anemia. We will check labs in the morning. 07/27; patient is still intubated and on mechanical ventilation. Followed by pulmonary critical care. Nephrology is considering to dialyze the patient after discussing with the family. 07/28; patient is intubated and on mechanical ventilation, patient is nonresponsive without pressors. Creatinine is trending up and nephrology is considering to dialysis. I called her son Toño at [phone] and discussed about the prognosis of the patient and I gave the option of hospice care/withdraw care and he said he is going to talk to his sister and will get back to me. 07/29/2020;patient is intubated and on mechanical ventilation, patient is nonresponsive without pressors. Creatinine is trending up and nephrology is considering to dialysis. I called her son Toño on 07/28 at [phone] and discussed about the prognosis of the patient and I gave the option of hospice care/withdraw care and he said he is going to talk to his sister and will get back to me. Nephrology discussed with the son this morning and the son said he want aggressive management and she is going to be started on dialysis. 07/30; patient's son wants hospice. Declined dialysis. History Interval history: Patient was seen and evaluated this morning Patient is intubated and on mechanical ventilation Not responding Hospitalist Physical - Physical exam Narrative exam: Intubated and on mechanical ventilation The patient is morbidly obese. Vital signs as documented. Head exam is unremarkable. No scleral icterus . Neck is without jugular venous distension, thyromegaly, or carotid bruits. Lungs are clear to auscultation. Cardiac exam reveals regular rate and Rhythm. Abdominal exam reveals normal bowel sounds, nontender, no organomegaly. Extremities are nonedematous and both femoral and pedal pulses are normal. SAP GATHERER: Intubated. - Constitutional Vitals: Temp Pulse Resp BP Pulse Ox 98 F 57 L 26 H 134/51 98 07/30/20 08:00 07/30/20 08:39 07/30/20 08:39 07/30/20 08:39 07/30/20 08:39 General appearance: Present: no acute distress, well-nourished, obese (Morbidly obese), other (Intubated on ventilatory support) HEART Score - HEART Score Troponin: Troponin T 0.067 ng/mL (0.00-0.029) H 07/01/20 06:01 Results - Labs CBC & Chem 7: 07/29/20 13:01 07/29/20 13:01 Labs: Laboratory Last Values WBC 10.3 K/mm3 (4.5-11.0) 07/29/20 13:01 RBC 2.40 M/mm3 (3.65-5.03) L 07/29/20 13:01 Hgb 7.1 gm/dl (10.1-14.3) L 07/29/20 13:01 Hct 20.9 % (30.3-42.9) L 07/29/20 13:01 MCV 87 fl (79-97) 07/29/20 13:01 MCH 30 pg (28-32) 07/29/20 13:01 MCHC 34 % (30-34) 07/29/20 13:01 RDW 17.5 % (13.2-15.2) H 07/29/20 13:01 Plt Count 430 K/mm3 (140-440) 07/29/20 13:01 Lymph % (Auto) 8.7 % (13.4-35.0) L 07/28/20 04:30 [place] % (Auto) 8.3 % (0.0-7.3) H 07/28/20 04:30 Eos % (Auto) 3.3 % (0.0-4.3) 07/28/20 04:30 Baso % (Auto) 0.6 % (0.0-1.8) 07/28/20 04:30 Lymph # (Auto) 0.7 K/mm3 (1.2-5.4) L 07/28/20 04:30 [place] # (Auto) 0.7 K/mm3 (0.0-0.8) 07/28/20 04:30 Eos # (Auto) 0.3 K/mm3 (0.0-0.4) 07/28/20 04:30 Baso # (Auto) 0.1 K/mm3 (0.0-0.1) 07/28/20 04:30 Add Manual Diff Complete 07/29/20 13:01 Total Counted 100 07/29/20 13:01 Seg Neutrophils % 79.1 % (40.0-70.0) H 07/28/20 04:30 Seg Neuts % (Manual) 86.0 % (40.0-70.0) H 07/29/20 13:01 Band Neutrophils % 0 % 07/29/20 13:01 Lymphocytes % (Manual) 6.0 % (13.4-35.0) L 07/29/20 13:01 Reactive Lymphs % (Man) 0 % 07/29/20 13:01 Monocytes % (Manual) 8.0 % (0.0-7.3) H 07/29/20 13:01 Eosinophils % (Manual) 0 % (0.0-4.3) 07/29/20 13:01 Basophils % (Manual) 0 % (0.0-1.8) 07/29/20 13:01 Metamyelocytes % 0 % 07/29/20 13:01 Myelocytes % 0 % 07/29/20 13:01 Promyelocytes % 0 % 07/29/20 13:01 Blast Cells % 0 % 07/29/20 13:01 Nucleated RBC % Not Reportable 07/29/20 13:01 Seg Neutrophils # 6.4 K/mm3 (1.8-7.7) 07/28/20 04:30 Seg Neutrophils # Man 8.9 K/mm3 (1.8-7.7) H 07/29/20 13:01 Band Neutrophils # 0.0 K/mm3 07/29/20 13:01 Lymphocytes # (Manual) 0.6 K/mm3 (1.2-5.4) L 07/29/20 13:01 Abs React Lymphs (Man) 0.0 K/mm3 07/29/20 13:01 Monocytes # (Manual) 0.8 K/mm3 (0.0-0.8) 07/29/20 13:01 Eosinophils # (Manual) 0.0 K/mm3 (0.0-0.4) 07/29/20 13:01 Basophils # (Manual) 0.0 K/mm3 (0.0-0.1) 07/29/20 13:01 Metamyelocytes # 0.0 K/mm3 07/29/20 13:01 Myelocytes # 0.0 K/mm3 07/29/20 13:01 Promyelocytes # 0.0 K/mm3 07/29/20 13:01 Blast Cells # 0.0 K/mm3 07/29/20 13:01 WBC Morphology Not Reportable 07/29/20 13:01 Hypersegmented Neuts Not Reportable 07/29/20 13:01 Hyposegmented Neuts Not Reportable 07/29/20 13:01 Hypogranular Neuts Not Reportable 07/29/20 13:01 Smudge Cells Not Reportable 07/29/20 13:01 Toxic Granulation Not Reportable 07/29/20 13:01 Toxic Vacuolation Not Reportable 07/29/20 13:01 Dohle Bodies Not Reportable 07/29/20 13:01 Pelger-Huet Anomaly Not Reportable 07/29/20 13:01 Sanjuanita Rods Not Reportable 07/29/20 13:01 Platelet Estimate Consistent w auto 07/29/20 13:01 Clumped Platelets Not Reportable 07/29/20 13:01 Plt Clumps, EDTA Not Reportable 07/29/20 13:01 Large Platelets Not Reportable 07/29/20 13:01 Giant Platelets Not Reportable 07/29/20 13:01 Platelet Satelliting Not Reportable 07/29/20 13:01 Plt Morphology Comment Not Reportable 07/29/20 13:01 RBC Morphology Normal 07/29/20 13:01 Dimorphic RBCs Not Reportable 07/29/20 13:01 Polychromasia Not Reportable 07/29/20 13:01 Hypochromasia Not Reportable 07/29/20 13:01 Poikilocytosis Not Reportable 07/29/20 13:01 Anisocytosis Not Reportable 07/29/20 13:01 Microcytosis Not Reportable 07/29/20 13:01 Macrocytosis Not Reportable 07/29/20 13:01 Spherocytes Not Reportable 07/29/20 13:01 Pappenheimer Bodies Not Reportable 07/29/20 13:01 Sickle Cells Not Reportable 07/29/20 13:01 Target Cells Not Reportable 07/29/20 13:01 Tear Drop Cells Not Reportable 07/29/20 13:01 Ovalocytes Not Reportable 07/29/20 13:01 Helmet Cells Not Reportable 07/29/20 13:01 Jones-Tenino Bodies Not Reportable 07/29/20 13:01 Kuna Rings Not Reportable 07/29/20 13:01 Papillion Cells Not Reportable 07/29/20 13:01 Bite Cells Not Reportable 07/29/20 13:01 Crenated Cell Not Reportable 07/29/20 13:01 Elliptocytes Not Reportable 07/29/20 13:01 Acanthocytes (Spur) Not Reportable 07/29/20 13:01 Rouleaux Not Reportable 07/29/20 13:01 Hemoglobin C Crystals Not Reportable 07/29/20 13:01 Schistocytes Not Reportable 07/29/20 13:01 Malaria parasites Not Reportable 07/29/20 13:01 Kev Bodies Not Reportable 07/29/20 13:01 Hem Pathologist Commnt No 07/29/20 13:01 PT 14.2 Sec. (12.2-14.9) 05/29/20 15:10 INR 1.08 (0.87-1.13) 05/29/20 15:10 APTT 27.2 Sec. (24.2-36.6) 05/29/20 15:10 D-Dimer 2310.15 ng/mlDDU (0-234) H 06/29/20 14:45 Heparin Anti-Xa Level 0.34 U.I./ml (0.3-0.7) 06/19/20 10:46 ABG pH 7.382 (7.320-7.450) 07/18/20 04:24 POC ABG pCO2 44.1 mmHg (32.0-48.0) 07/18/20 04:24 ABG pCO2 47.0 mm Hg 07/05/20 13:05 ABG Oxyhemoglobin 92.6 (94-98) L 06/23/20 12:34 POC ABG pO2 86.8 mmHg (83-108) 07/18/20 04:24 ABG pO2 78.3 mm Hg (80.0-90.0) L 07/05/20 13:05 POC ABG HCO3 25.6 07/18/20 04:24 ABG HCO3 23.4 mmol/L (20.0-26.0) 07/05/20 13:05 ABG O2 Saturation 96.1 % (95.0-99.0) 07/05/20 13:05 ABG O2 Content 0.3 (0.0-44) 07/05/20 13:05 POC ABG Base Excess 0.4 07/18/20 04:24 ABG Base Excess -2.6 mmol/L (-2.0-3.0) L 07/05/20 13:05 ABG Hemoglobin 8.8 (12.0-17.5) L 07/18/20 04:24 ABG Carboxyhemoglobin 1.7 % (0.0-5.0) 07/05/20 13:05 ABG Methemoglobin 0.2 % (0.0-1.5) 07/05/20 13:05 VBG pH 7.152 (7.320-7.420) L* 05/28/20 13:47 ABG Sodium 131.6 mmol/L (136.0-145.0) L 07/18/20 04:24 ABG Potassium 4.9 mmol/L (3.40-4.50) H 07/18/20 04:24 ABG Chloride 104.0 mmol/L (98-107) 07/18/20 04:24 ABG Glucose 131 mg/dL (65-95) H 07/18/20 04:24 Carboxyhemoglobin 0.5 (0.5-1.5) 06/23/20 12:34 Oxyhemoglobin 97.4 % (95.0-99.0) 07/05/20 13:05 FiO2 30.0 07/18/20 04:24 Sodium 129 mmol/L (137-145) L 07/29/20 13:01 Potassium 4.9 mmol/L (3.6-5.0) 07/29/20 13:01 Chloride 92.9 mmol/L (98-107) L 07/29/20 13:01 Carbon Dioxide 23 mmol/L (22-30) 07/29/20 13:01 Anion Gap 18 mmol/L 07/29/20 13:01 BUN 112 mg/dL (7-17) H 07/29/20 13:01 Creatinine 3.0 mg/dL (0.6-1.2) H 07/29/20 13:01 Estimated GFR 16 ml/min 07/29/20 13:01 BUN/Creatinine Ratio 37 % 07/29/20 13:01 Glucose 142 mg/dL (65-100) H 07/29/20 13:01 POC Glucose 150 mg/dL (70-105) H 07/30/20 05:01 Lactic Acid 0.60 mmol/L (0.7-2.0) L 06/27/20 05:00 Calcium 7.9 mg/dL (8.4-10.2) L 07/29/20 13:01 Ferritin 223.6 ng/mL (10.0-200.0) H 06/29/20 14:45 Magnesium 2.70 mg/dL (1.7-2.3) H 07/28/20 04:30 Lactate Dehydrogenase 367 units/L (91-180) H 06/29/20 14:45 Total Bilirubin 0.20 mg/dL (0.1-1.2) 07/23/20 19: AST 35 units/L (5-40) 07/23/20 19: ALT 14 units/L (7-56) 07/23/20 19: Alkaline Phosphatase 124 units/L (35-129) 07/23/20 19: C-Reactive Protein 3.60 mg/dL (0.00-1.30) H 06/29/20 14:45 Total Creatine Kinase 300 units/L (30-135) H 07/01/20 06:01 CK-MB (CK-2) 2.0 ng/mL (0.0-4.0) 07/01/20 06:01 CK-MB (CK-2) Rel Index 0.6 (0-4) 07/01/20 06:01 Troponin T 0.067 ng/mL (0.00-0.029) H 07/01/20 06:01 Total Protein 6.3 g/dL (6.3-8.2) 07/23/20 19: Albumin 2.2 g/dL (3.9-5) L 07/23/20 19: Albumin/Globulin Ratio 0.5 % 07/23/20 19:23 Triglycerides 142 mg/dL (2-149) 07/01/20 06:01 Cholesterol 137 mg/dL (50-199) 07/01/20 06:01 LDL Cholesterol Direct 62 mg/dL (50-130) 07/01/20 06:01 HDL Cholesterol 61 mg/dL (40-59) H 07/01/20 06:01 Cholesterol/HDL Ratio 2.24 % 07/01/20 06:01 Procalcitonin 0.18 ng/mL (<0.15) 07/14/20 04:55 Arterial Blood Glucose 131 mg/dL (65-95) H 07/18/20 04:24 Arterial Blood Ionized Calcium 5.1 mg/dL (4.6-5.3) 07/18/20 04:24 Urine Color Yellow (Yellow) 06/06/20 04:00 Urine Turbidity Cloudy (Clear) 06/06/20 04:00 Urine pH 5.0 (5.0-7.0) 06/06/20 04:00 Ur Specific [place] 1.012 (1.003-1.030) 06/06/20 04:00 Urine Protein 100 mg/dl mg/dL (Negative) 06/06/20 04:00 Urine Glucose (UA) 50 mg/dL (Negative) 06/06/20 04:00 Urine Ketones Neg mg/dL (Negative) 06/06/20 04:00 Urine Blood Sm (Negative) 06/06/20 04:00 Urine Nitrite Neg (Negative) 06/06/20 04:00 Urine Bilirubin Neg (Negative) 06/06/20 04:00 Urine Urobilinogen < 2.0 mg/dL (<2.0) 06/06/20 04:00 Ur Leukocyte Esterase Neg (Negative) 06/06/20 04:00 Urine WBC (Auto) 15.0 /HPF (0.0-6.0) H 06/06/20 04:00 Urine RBC (Auto) 23.0 /HPF (0.0-6.0) 06/06/20 04:00 U Epithel Cells (Auto) 8.0 /HPF (0-13.0) 06/06/20 04:00 Urine Bacteria (Auto) 2+ /HPF (Negative) 06/06/20 04:00 Amorphous Crystals 1+ 06/06/20 04:00 Hyaline Casts 16 /LPF 06/06/20 04:00 Urine Mucus 2+ /HPF 06/06/20 04:00 Urine Yeast (Budding) 2+ /HPF 06/03/20 Unknown Urine Creatinine 33.3 mg/dL (0.1-20.0) H 07/06/20 13:20 Urine Sodium 21 mmol/L 07/06/20 13:20 Urine Total Protein 196 mg/dL (5-11.8) H 06/06/20 04:00 Nasal Screen MRSA (PCR) Negative (Negative) 06/29/20 08:30 Phenytoin 9.4 ug/mL (10.0-20.0) L 07/24/20 04:29 Coronavirus (PCR) Positive (Negative) A 07/14/20 08:04 Hepatitis A IgM Ab Non-reactive (NonReactive) 07/29/20 13:01 Hep Bs Antigen Non-reactive (Negative) 07/29/20 13:01 Hep B Core IgM Ab Non-reactive (NonReactive) 07/29/20 13:01 Hepatitis C Antibody Non-reactive (NonReactive) 07/29/20 13:01 Blood Type A POSITIVE 07/05/20 02:30 Antibody Screen Negative 07/05/20 02:30 Crossmatch See Detail 07/05/20 02:30 - Diagnostic Impressions Diagnostic Impressions: Echocardiogram Limited Views 05/29/20 13:52 Transthoracic Echocardiogram Indication: Pulm Embolus BP: 169/76 HR: 85 Conclusions *Limited study for RV size post cardiopulmonar arrest. *RV is only slightly dilated, no significant difference from prior echo 05/13/2020. *Global left ventricular systolic function is at the lower limits of normal. *The estimated ejection fraction is 45-50%. *Mild to moderate concentric left ventricular hypertrophy is observed. *The left and right atria are both mild to moderately dilated. Findings Left Ventricle: The left ventricular chamber size is mildly dilated. Mild to moderate concentric left ventricular hypertrophy is observed. Global left ventricular systolic function is at the lower limits of normal. The estimated ejection fraction is 45-50%. Left Atrium: The left atrium is mild to moderately dilated. Right Ventricle: The right ventricle is slightly dilated. Right Atrium: The right atrium is mild to moderately dilated. Aortic Valve: The aortic valve leaflets are moderately thickened. Mitral Valve: There is mitral annular calcification. The mitral valve leaflets are moderately thickened. Tricuspid Valve: The tricuspid valve leaflets are mildly thickened. Pericardium: A trivial pericardial effusion is visualized. NDUM: 05/29/20 1808 Amended Report Transthoracic Echocardiogram Indication: Pulm Embolus BP: 169/76 HR: 85 Conclusions *Limited study for RV size post cardiopulmonary arrest. *RV is only slightly dilated, no significant difference from prior echo 05/13/2020. *Global left ventricular systolic function is at the lower limits of normal. *The estimated ejection fraction is 45-50%. *Mild to moderate concentric left ventricular hypertrophy is observed. *The left and right atria are both mild to moderately dilated. Findings Left Ventricle: The left ventricular chamber size is mildly dilated. Mild to moderate concentric left ventricular hypertrophy is observed. Global left ventricular systolic function is at the lower limits of normal. The estimated ejection fraction is 45-50%. Left Atrium: The left atrium is mild to moderately dilated. Right Ventricle: The right ventricle is slightly dilated. Right Atrium: The right atrium is mild to moderately dilated. Aortic Valve: The aortic valve leaflets are moderately thickened. Mitral Valve: There is mitral annular calcification. The mitral valve leaflets are moderately thickened. Tricuspid Valve: The tricuspid valve leaflets are mildly thickened. Pericardium: A trivial pericardial effusion is visualized. Helm/IV: Voiding Method Indwelling Catheter IV Catheter Type [Left Forearm INT / Saline Lock ] IV Catheter Type [Left Wrist] INT / Saline Lock IV Catheter Type [Left Upper Peripheral IV arm] IV Catheter Type [Right CVL Internal Jugular] IV Catheter Type [Right Hand] INT / Saline Lock IV Catheter Type [Right Wrist] Not found on patient IV Catheter Type [Left Hand] INT / Saline Lock IV Catheter Type [Left INT / Saline Lock Antecubital] IV Catheter Type [Right Peripheral IV Forearm] IV Catheter Type [Left Leg] Intra-osseous Active Medications - Current Medications Current Medications: Generic Name Dose Route Start Last Admin Trade Name Freq PRN Reason Stop Dose Admin Acetaminophen 650 mg 06/09/20 10:57 06/29/20 21:18 Tylenol FEEDTUBE 650 mg Q6H PRN Administration Fever >101 Amlodipine Besylate 10 mg 06/02/20 11:00 07/29/20 09:13 Amlodipine PO 10 mg DAILY NELSON Administration Lipase/Protease/Amylase 1 each 05/29/20 13:39 07/07/20 10:[address] 10,500 Unit FEEDTUBE 1 each PRN PRN Administration For Clogged Feeding Tube Carvedilol 25 mg 07/20/20 11:00 07/29/20 22:12 Coreg PO 25 mg Q12HR NELSON Administration Clonidine HCl 0.1 mg 07/26/20 15:00 07/29/20 22:01 Catapres PO 0.1 mg Q8H NELSON Administration Epoetin Javon 10,000 unit 07/29/20 11:29 Procrit IV SCOTTY PRN hemodialysis Glycopyrrolate 2 mg 06/09/20 14:00 07/29/20 20:58 Glycopyrrolate PO 2 mg TID NELSON Administration Heparin Sodium (Porcine) 5,000 unit 06/30/20 14:00 07/30/20 07:50 Heparin SUB-Q 5,000 unit Q8HR NELSON Administration Heparin Sodium (Porcine) 5,000 unit 07/29/20 11:29 Heparin IV SCOTTY PRN hemodialysis Hydralazine HCl 100 mg 07/14/20 14:00 07/30/20 07:50 Apresoline PO 100 mg TID NELSON Administration Hydrophilic Ointment 1 applic 05/28/20 13:49 Vaseline Lip Therapy TP Q2HR PRN Dry Lips Norepinephrine 4 mg in 250 mls @ 7.5 mls/hr 07/23/20 20:00 07/24/20 07:15 Levophed Drip 4 Mg/Ns 250 Ml IV 0 mcg/min TITR NELSON 0 mls/hr Titration Protocol 2 MCG/MIN Dopamine HCl/Dextrose 800 mg in 250 mls @ 4.613 mls/hr 07/24/20 11:30 Intropin Drip 800 Mg/D5w 250 Ml IV TITR NELSON Protocol 2 MCG/KG/MIN Sodium Chloride 100 mls @ 999 mls/hr 07/29/20 11:29 Nacl 0.9% IV SCOTTY PRN Hypotension Insulin Glargine 10 units 06/08/20 22:00 07/29/20 22:13 Lantus SUB-Q 10 units QHS NELSON Administration Insulin Human Lispro 0 unit 05/29/20 18:00 07/30/20 07:51 Humalog SUB-Q 3 unit Q6H NELSON Administration Protocol Labetalol HCl 20 mg 06/03/20 09:00 07/21/20 05:56 Labetalol IV 20 mg Q4H PRN Administration HYPERTENSION Lansoprazole 30 mg 06/05/20 22:00 07/29/20 22:12 Prevacid Solutab FEEDTUBE 30 mg BID NELSON Administration Levetiracetam 1,000 mg 07/21/20 22:00 07/29/20 22:17 Keppra PO 1,000 mg BID NELSON Administration Minoxidil 5 mg 07/21/20 10:00 07/29/20 22:11 Loniten PO 5 mg BID NELSON Administration Multi-Ingred Cream/Lotion/Oil/Oint 1 applic 05/28/20 13:49 Artificial Tears Ophth Oint OU Q4HR PRN Dry Eye(s) Ondansetron HCl 4 mg 06/02/20 09:00 06/09/20 16:48 Zofran IV 4 mg Q8H PRN Administration Nausea And Vomiting Phenytoin 225 mg 07/29/20 22:00 07/29/20 22:12 Dilantin FEEDTUBE 225 mg BID NELSON Administration Senna 17.6 mg 06/03/20 10:00 07/29/20 22:18 Senokot FEEDTUBE Not Given BID NELSON Simple Syrup 15 ml 05/29/20 13:39 Simple Syrup FEEDTUBE PRN PRN Hypoglycemia Simple Syrup 30 ml 05/29/20 13:39 Simple Syrup FEEDTUBE PRN PRN Hypoglycemia Sodium Bicarbonate 325 mg 05/29/20 13:39 07/07/20 10:36 Sodium Bicarbonate FEEDTUBE 325 mg PRN PRN Administration For Clogged Feeding Tube Sodium Chloride 10 ml 05/28/20 22:00 07/29/20 22:18 Sodium Chloride Flush Syringe 10 Ml IV 10 ml BID NELSON Administration Sodium Chloride 10 ml 05/28/20 19:08 06/16/20 17:50 Sodium Chloride Flush Syringe 10 Ml IV 10 ml PRN PRN Administration LINE FLUSH Nutrition/Malnutrition Assess - Dietary Evaluation Nutrition/Malnutrition Findings: Nutrition Notes Start: 05/29/20 11:45 Freq: Status: Active Protocol: Document 07/27/20 08:59 LP (Rec: 07/27/20 09:05 LP [id number]) Nutrition Notes Initial or Follow up Reassessment Current Diagnosis Acute Kidney Injury,Diabetes, Heart Failure,Respiratory Failure Other Pertinent Diagnosis COVID-19 (+), Pulmonary edema, dysphagia Current Diet Nepro at 40 ml/hr Labs/Tests Na 135 K 3.5 BUN 103 Cr 2.6 BG 113 Pertinent Medications Reviewed Height 5 ft 6 in Weight 123 kg [place] Body Weight (kg) 59.09 BMI 43.7 Weight Status Morbidly Obese Subjective/Other Information Pt continues on vent. Pt tolerating TF at goal rate. Pt already on low K TF. Percent of energy/protein needs met: 100%/80% Protein calculated based on 0. 8g/kg ABW Burn Absent Trauma Absent Current % PO Negligible Minimum of two criteria No physical signs of malnutrition Fluid Accumulation Mild (non-severe) #1 Nutrition Diagnosis Inadequate oral intake Diagnosis Progress(for reassessment Continues documentation) Is patient on ventilator? Yes Is Patient Ambulatory and/or Out of Bed No REE-([facility]-confined to bed) 2172.576 Kcal/Kg value to use for calculation 14 Approximate Energy Requirements Using 1722 kcal/Kg Calculation Used for Recommendations Kcal/kg Additional Notes Protein needs up to 148g (up to 2.5g/kg IBW) Fluid needs 1ml/kcal Nutrition Intervention Change Diet Order: Continue Nutrition Support: Nepro at 40ml/hr Flush 150ml q4h Kcal 1,728 Protein (gm) 78 Fluid (mL) 697 Goal #1 TF tolerance Goal #2 Meet at least 75% of kcal and protein needs Anticipated Discharge Needs: Unable to determine at this time Follow-Up By: 08/03/20 Additional Comments Follow for stable TF
[2020-07-30] MEDS: cloNIDine 0.1 MG TAB PO SCH ×3 (10:24→22:23)
[2020-07-30] MEDS: amLODIPine 10 MG TAB PO SCH (10:24)
[2020-07-30] MEDS: carvediloL 25 MG TAB PO SCH ×2 (10:25→22:05)
[2020-07-30] MEDS: levETIRAcetam 500 MG/5 ML ORAL LIQD PO SCH ×2 (10:25→22:07)
[2020-07-30] MEDS: SENNOSIDES ORAL LIQD 8.8 MG/5 ML ORAL LIQD FEEDTUBE SCH ×2 (10:26→22:14)
[2020-07-30] MEDS: LANSOPRAZOLE 30 MG SOLUTAB FEEDTUBE SCH ×2 (10:26→22:08)
[2020-07-30] MEDS: PHENYTOIN 100 MG/4 ML ORAL.LIQD FEEDTUBE SCH ×2 (10:26→22:12)
[2020-07-30] MEDS: MINOXIDIL 2.5 MG TAB PO SCH ×2 (10:29→22:15)
--- NOTE | 2020-07-30 10:36 | Progress Note ---
Assessment and Plan - Patient Problems (1) Acute kidney injury (AVANI) with acute tubular necrosis (ATN) Current Visit: Yes Status: Acute Plan to address problem: Kidney function had been worsening. Patient had poor diuretic response to Lasix IV. She also did not respond to Bumex and infusions with albumin infusion. Will need to start dialysis. Called patient's son and discussed benefits and risk. Patient has been in hospital for more than a month with COVID-19 and numerous complications and is not doing well. Prognosis is poor. Patient son wanted to do a trial of dialysis and see how patient tolerates. Apparently after discussing with his sister, they decided to opt for hospice. No further recommendations at this point. We will sign off (2) Acute hypoxemic respiratory failure Current Visit: Yes Status: Acute Plan to address problem: Being managed by pulmonary. S/p Extubation 06/12. Back on respirator. Continue management by pulmonary/critical care (3) Cardiac arrest Current Visit: Yes Status: Acute Plan to address problem: Patient is improving (4) Metabolic encephalopathy Current Visit: Yes Status: Acute Plan to address problem: Mental status is improving (5) Pneumonia due to COVID-19 virus Current Visit: Yes Status: Acute Plan to address problem: Patient has completed 5 days of Remdesevir. Completed course of steroids. (6) Cardiomyopathy Current Visit: No Status: Acute Qualifiers: Cardiomyopathy type: unspecified Qualified Code(s): I42.9 - Cardiomyopathy, unspecified Plan to address problem: Patient has peripheral edema. Has not responded to Bumex infusion. Will start dialysis and monitor response (7) Hyperglycemia due to type 2 diabetes mellitus Current Visit: No Status: Acute Qualifiers: Diabetes mellitus shelter insulin use: without shelter use Qualified Code(s): E11.65 - Type 2 diabetes mellitus with hyperglycemia Plan to address problem: Blood sugar management by primary attending Subjective Date of service: 07/30/20 Principal diagnosis: Ac hypoxemic resp failure; COVID-19; pneumonia; CHF; Pulm HTN; OHS; DM II Interval history: Chart reviewed. I did not do physical exam at the bedside due to PPE conser vation with the current COVID-19 pandemic. Patient is still oliguric despite scheduled Bumex drip and albumin infusions has been stopped. I called patient's son yesterday and discussed at length with him. He opted to start dialysis at that time understanding benefits and risk and patient poor prognosis. Apparently after discussing with his sister, patient's family decided not to start dialysis and to go to hospice. Objective - Exam Narrative Exam: I did not do physical exam at the bedside due to PPE conservation with the cu rrent COVID-19 pandemic - Vital Signs Vital signs: Vital Signs - 12hr 07/29/20 07/29/20 07/30/20 23:00 23:18 00:00 Temperature 97.5 F L Pulse Rate 53 L 56 L 60 Pulse Rate [ From Monitor] Respiratory 12 12 16 Rate Blood Pressure 140/37 140/37 144/51 O2 Sat by Pulse 97 97 97 Oximetry 07/30/20 07/30/20 07/30/20 00:32 01:00 02:01 Temperature Pulse Rate 60 59 L 60 Pulse Rate [ From Monitor] Respiratory 17 13 Rate Blood Pressure 144/51 145/46 150/37 O2 Sat by Pulse 96 97 97 Oximetry 07/30/20 07/30/20 07/30/20 03:00 04:00 04:08 Temperature 98.6 F Pulse Rate 60 60 63 Pulse Rate [ From Monitor] Respiratory 13 14 Rate Blood Pressure 158/41 165/37 165/37 O2 Sat by Pulse 97 96 97 Oximetry 07/30/20 07/30/20 07/30/20 05:00 06:01 07:01 Temperature Pulse Rate 61 56 L 56 L Pulse Rate [ From Monitor] Respiratory 12 15 12 Rate Blood Pressure 169/59 142/38 138/46 O2 Sat by Pulse 98 98 98 Oximetry 07/30/20 07/30/20 07/30/20 08:00 08:39 09:01 Temperature 98 F Pulse Rate 56 L 57 L 54 L Pulse Rate [ 56 L From Monitor] Respiratory 13 26 H 18 Rate Blood Pressure 134/51 134/51 116/31 O2 Sat by Pulse 98 98 97 Oximetry 07/30/20 07/30/20 07/30/20 10:01 10:24 10:25 Temperature Pulse Rate 43 L 48 L 48 L Pulse Rate [ From Monitor] Respiratory 20 Rate Blood Pressure 131/23 131/23 131/23 O2 Sat by Pulse 89 Oximetry - Lab 07/29/20 13:01 07/29/20 13:01 Most recent lab results ABG pH 7.382 (7.320-7.450) 07/18/20 04:24 ABG pCO2 47.0 mm Hg 07/05/20 13:05 ABG pO2 78.3 mm Hg (80.0-90.0) L 07/05/20 13:05 ABG HCO3 23.4 mmol/L (20.0-26.0) 07/05/20 13:05 ABG O2 Saturation 96.1 % (95.0-99.0) 07/05/20 13:05 Calcium 7.9 mg/dL (8.4-10.2) L 07/29/20 13:01 Magnesium 2.70 mg/dL (1.7-2.3) H 07/28/20 04:30 Urine Creatinine 33.3 mg/dL (0.1-20.0) H 07/06/20 13:20 Urine Sodium 21 mmol/L 07/06/20 13:20 Urine Total Protein 196 mg/dL (5-11.8) H 06/06/20 04:00 Medications & Allergies - Medications Allergies/Adverse Reactions: Allergies No Known Allergies Allergy (Verified 01/21/20 12:28) Home Medications: Home Medications Medication Instructions Recorded Confirmed Last Taken Type AtorvaSTATin [Lipitor] 20 mg PO QHS 05/12/20 05/29/20 Unknown History lisinopriL [Zestril TAB] 40 mg PO QDAY 05/12/20 05/29/20 Unknown History metFORMIN [Glucophage] 850 mg PO BID 05/12/20 05/29/20 Unknown History Acetaminophen [Acetaminophen TAB] 650 mg PO Q4H PRN tablet 05/13/20 05/29/20 Unknown Rx Dicyclomine [Bentyl] 20 mg PO BID #20 tablet 05/13/20 05/29/20 Unknown Rx Famotidine [Pepcid] 20 mg PO BID #30 tablet 05/13/20 05/29/20 Unknown Rx carvediloL [Coreg] 6.25 mg PO BID #60 05/13/20 05/29/20 Unknown Rx Active Medications: Generic Name Dose Route Start Last Admin Trade Name Freq PRN Reason Stop Dose Admin Acetaminophen 650 mg 06/09/20 10:57 06/29/20 21:18 Tylenol FEEDTUBE 650 mg Q6H PRN Administration Fever >101 Amlodipine Besylate 10 mg 06/02/20 11:00 07/30/20 10:24 Amlodipine PO Not Given DAILY [facility] Lipase/Protease/Amylase 1 each 05/29/20 13:39 07/07/20 10:[address] 10,500 Unit FEEDTUBE 1 each PRN PRN Administration For Clogged Feeding Tube Carvedilol 25 mg 07/20/20 11:00 07/30/20 10:25 Coreg PO Not Given Q12HR NELSON Clonidine HCl 0.1 mg 07/26/20 15:00 07/30/20 10:24 Catapres PO Not Given Q8H NELSON Epoetin Javon 10,000 unit 07/29/20 11:29 Procrit IV SCOTTY PRN hemodialysis Glycopyrrolate 2 mg 06/09/20 14:00 07/29/20 20:58 Glycopyrrolate PO 2 mg TID NELSON Administration Heparin Sodium (Porcine) 5,000 unit 06/30/20 14:00 07/30/20 07:50 Heparin SUB-Q 5,000 unit Q8HR NELSON Administration Heparin Sodium (Porcine) 5,000 unit 07/29/20 11:29 Heparin IV SCOTTY PRN hemodialysis Hydralazine HCl 100 mg 07/14/20 14:00 07/29/20 20:57 Apresoline PO 100 mg TID NELSON Administration Hydrophilic Ointment 1 applic 05/28/20 13:49 Vaseline Lip Therapy TP Q2HR PRN Dry Lips Norepinephrine 4 mg in 250 mls @ 7.5 mls/hr 07/23/20 20:00 07/24/20 07:15 Levophed Drip 4 Mg/Ns 250 Ml IV 0 mcg/min TITR NELSON 0 mls/hr Titration Protocol 2 MCG/MIN Dopamine HCl/Dextrose 800 mg in 250 mls @ 4.613 mls/hr 07/24/20 11:30 Intropin Drip 800 Mg/D5w 250 Ml IV TITR NELSON Protocol 2 MCG/KG/MIN Sodium Chloride 100 mls @ 999 mls/hr 07/29/20 11:29 Nacl 0.9% IV SCOTTY PRN Hypotension Insulin Glargine 10 units 06/08/20 22:00 07/29/20 22:13 Lantus SUB-Q 10 units QHS NELSON Administration Insulin Human Lispro 0 unit 05/29/20 18:00 07/30/20 07:51 Humalog SUB-Q 3 unit Q6H NELSON Administration Protocol Labetalol HCl 20 mg 06/03/20 09:00 07/21/20 05:56 Labetalol IV 20 mg Q4H PRN Administration HYPERTENSION Lansoprazole 30 mg 06/05/20 22:00 07/30/20 10:26 Prevacid Solutab FEEDTUBE 30 mg BID NELSON Administration Levetiracetam 1,000 mg 07/21/20 22:00 07/30/20 10:25 Keppra PO 1,000 mg BID NELSON Administration Minoxidil 5 mg 07/21/20 10:00 07/30/20 10:29 Loniten PO Not Given BID NELSON Multi-Ingred Cream/Lotion/Oil/Oint 1 applic 05/28/20 13:49 Artificial Tears Ophth Oint OU Q4HR PRN Dry Eye(s) Ondansetron HCl 4 mg 06/02/20 09:00 06/09/20 16:48 Zofran IV 4 mg Q8H PRN Administration Nausea And Vomiting Phenytoin 225 mg 07/29/20 22:00 07/30/20 10:26 Dilantin FEEDTUBE 225 mg BID NELSON Administration Senna 17.6 mg 06/03/20 10:00 07/30/20 10:26 Senokot FEEDTUBE 17.6 mg BID NELSON Administration Simple Syrup 15 ml 05/29/20 13:39 Simple Syrup FEEDTUBE PRN PRN Hypoglycemia Simple Syrup 30 ml 05/29/20 13:39 Simple Syrup FEEDTUBE PRN PRN Hypoglycemia Sodium Bicarbonate 325 mg 05/29/20 13:39 07/07/20 10:36 Sodium Bicarbonate FEEDTUBE 325 mg PRN PRN Administration For Clogged Feeding Tube Sodium Chloride 10 ml 05/28/20 22:00 07/29/20 22:18 Sodium Chloride Flush Syringe 10 Ml IV 10 ml BID NELSON Administration Sodium Chloride 10 ml 05/28/20 19:08 06/16/20 17:50 Sodium Chloride Flush Syringe 10 Ml IV 10 ml PRN PRN Administration LINE FLUSH
[2020-07-30] MEDS: GLYCOPYRROLATE 2 MG TAB PO SCH ×3 (12:38→20:44)
--- NOTE | 2020-07-30 14:21 | Progress Note ---
Assessment and Plan Acute hypoxemic respiratory failure on MVS Coronavirus-19 infection. Bilateral pulmonary infiltrates, bilateral pneumonia plus likely element of Pulmonary edema. Bilateral pulmonary edema. Bilateral pleural effusions. History of congestive heart failure. Morbid obesity. History of pulmonary hypertension. History of hypertension. Diabetes. Obesity hypoventilation syndrome. Elevated serum inflammatory markers to include D-dimers and LDH levels. Hyperkalemia at presentation. Metabolic acidosis. Oropharyngeal dysphagia. (AMS remains rate limiting factor to safe extubation; she will need a tracheo stomy) - dialysis on hold due to hospice transition contemplation - continue care as below otherwise; - prn CXR's and ABG's at this point - repeat EEG next per neurology rec's - AED's per neurology ([facility] [employer] [facility]) - surgery evaluation ongoing for trach +/- PEG (await negative COVID PCR result) - continue Modafinil re: lethargy / somnolence - continue daytime PSV trials as tolerated - Daily SAT and SBT assessment as tolerated - continue to wean supplemental oxygen for target O2 sat's > 90% acutely - VAP bundle addressed - continue lung protective strategies - continue bronchodilators with pulmonary hygiene per RT - wean per pulmonary driven protocols otherwise - continue accuchecks resumed with glycemic control per SSI (While critically ill target blood glucose of 140-180 mg/dL; avoid hypoglycemia) - sedation prn for target RASS 0 to -1 - continue to avoid benzodiazepine's, reduce the possibility of delirium - AB's per ID rec's (following clinically of AB's at this time) - continue enteral nutrition at goal rate as tolerated - AED's per neurology - prn analgesia per CPOT score - Maintenance of sleep-wake cycle, avoid delirium - continue enteral nutritional support at goal rate as tolerated - G.I. & VTE prophylaxis with heparin & famotidine - PT/OT/ROM exercises - continue mobility protocols for pressure ulcer prophylaxis - Monitor hemodynamics closely - continue other care per attending / other consultants - discharge planning ongoing concurrently (LTAC evaluation is appropriate) .... Re-evaluate in am & prn; will continue aggressive care until clear family wants to decelerate CONDITION: CRITICAL PROGNOSIS: GUARDED CODE STATUS: FULL CODE The high probability of a clinically significant, sudden or life-threatening deterioration of the [respiratory, cardiovascular, GI & neurologic] system(s) required my full and direct attention, intervention and personal management. The aggregate critical care time was [34] minutes without overlap. Time includes spent on; [x] Data Review and interpretation [x] Patient assessment and monitoring of vital signs [x] Documentation [x] Medication orders and management Subjective Date of service: 07/30/20 Principal diagnosis: Ac hypoxemic resp failure; COVID-19; pneumonia; CHF; Pulm HTN; OHS; DM II Interval history: Patient is seen today for: Ac hypoxemic resp failure; Coronavirus-19 infection; pneumonia; Pulmonary edema; Bilateral pleural effusions; CHF; Morbid obesity; pulmonary hypertension; OHS; DM II Seen and examined at bedside; 24hour events reviewed; nursing and respiratory care staff consulted; no adverse overnight events reported to me; resting peacefully in bed; remains on MVS; AMS is persistent; family contemplating hospice care; afebrile; no emesis or overt aspiration Objective Vital Signs - 12hr 07/30/20 07/30/20 07/30/20 03:00 04:00 04:08 Temperature 98.6 F Pulse Rate 60 60 63 Pulse Rate [ From Monitor] Respiratory 13 14 Rate Blood Pressure 158/41 165/37 165/37 O2 Sat by Pulse 97 96 97 Oximetry 07/30/20 07/30/20 07/30/20 05:00 06:01 07:01 Temperature Pulse Rate 61 56 L 56 L Pulse Rate [ From Monitor] Respiratory 12 15 12 Rate Blood Pressure 169/59 142/38 138/46 O2 Sat by Pulse 98 98 98 Oximetry 07/30/20 07/30/20 07/30/20 08:00 08:39 09:01 Temperature 98 F Pulse Rate 56 L 57 L 54 L Pulse Rate [ 56 L From Monitor] Respiratory 13 26 H 18 Rate Blood Pressure 134/51 134/51 116/31 O2 Sat by Pulse 98 98 97 Oximetry 07/30/20 07/30/20 07/30/20 10:01 10:24 10:25 Temperature Pulse Rate 43 L 48 L 48 L Pulse Rate [ From Monitor] Respiratory 20 Rate Blood Pressure 131/23 131/23 131/23 O2 Sat by Pulse 89 Oximetry 07/30/20 07/30/20 07/30/20 11:00 12:00 12:01 Temperature Pulse Rate 52 L 51 L Pulse Rate [ 52 L From Monitor] Respiratory 15 12 17 Rate Blood Pressure 133/37 146/30 O2 Sat by Pulse 96 99 97 Oximetry 07/30/20 12:26 Temperature Pulse Rate 52 L Pulse Rate [ From Monitor] Respiratory Rate Blood Pressure 146/30 O2 Sat by Pulse 98 Oximetry Constitutional: appears uncomfortable, other (elderly looking female with mildly increased resp effort at rest) Eyes: non-icteric ENT: oropharynx dry, other (ETT 23-24 cm AYAN) Neck: supple, no lymphadenopathy, no JVD Effort: mildly labored Ascultation: Bilateral: diminished breath sounds, rhonchi Percussion: Bilateral: not dull Cardiovascular: regular rate and rhythm, other (S1,S2) Gastrointestinal: normoactive bowel sounds, soft, non-tender, non-distended Integumentary: normal Extremities: no cyanosis, pink and warm, pulses normal, no ischemia or petechiae, edema (trace) Neurologic: pupils equal and round, unable to assess, other (lethargic to obtunded) Psychiatric: other (unable to assess re: AMS) CBC and BMP: 07/29/20 13:01 07/29/20 13:01 ABG, PT/INR, D-dimer: ABG ABG pH 7.382 (7.320-7.450) 07/18/20 04:24 POC ABG pCO2 44.1 mmHg (32.0-48.0) 07/18/20 04:24 ABG pCO2 47.0 mm Hg 07/05/20 13:05 POC ABG pO2 86.8 mmHg (83-108) 07/18/20 04:24 ABG pO2 78.3 mm Hg (80.0-90.0) L 07/05/20 13:05 POC ABG HCO3 25.6 07/18/20 04:24 ABG O2 Saturation 96.1 % (95.0-99.0) 07/05/20 13:05 PT/INR, D-dimer PT 14.2 Sec. (12.2-14.9) 05/29/20 15:10 INR 1.08 (0.87-1.13) 05/29/20 15:10 D-Dimer 2310.15 ng/mlDDU (0-234) H 06/29/20 14:45 Abnormal lab findings: Abnormal Labs 05/28/20 05/28/20 05/28/20 13:29 13:47 13:47 WBC RBC Hgb Hct MCHC RDW 15.3 H Lymph % (Auto) [place] % (Auto) Eos % (Auto) Lymph # [place] # Lymph # (Auto) [place] # (Auto) Eos # (Auto) Seg Neutrophils % Seg Neuts % (Manual) Lymphocytes % (Manual) Seg Neutrophils # Seg Neutrophils # Man Lymphocytes # (Manual) Monocytes % (Manual) Eosinophils % (Manual) Monocytes # (Manual) Eosinophils # (Manual) D-Dimer Heparin Anti-Xa Level ABG pH POC ABG pCO2 POC ABG pO2 ABG pO2 ABG HCO3 ABG O2 Saturation ABG Base Excess ABG Hemoglobin ABG Oxyhemoglobin VBG pH ABG Sodium ABG Potassium ABG Glucose Oxyhemoglobin Sodium Potassium 6.6 H* Chloride 109.2 H Carbon Dioxide 17 L BUN 29 H Creatinine 1.3 H Glucose 265 H POC Glucose 248 H Lactic Acid Calcium 8.1 L Ferritin AST 63 H Alkaline Phosphatase Magnesium Lactate Dehydrogenase Total Creatine Kinase 301 H CK-MB (CK-2) 4.3 H C-Reactive Protein Total Protein 5.4 L Albumin 2.6 L Troponin T HDL Cholesterol Arterial Blood Glucose Urine WBC (Auto) Urine Creatinine Urine Total Protein Phenytoin Coronavirus (PCR) Crossmatch 05/28/20 05/28/20 05/28/20 13:47 13:47 14:46 WBC RBC Hgb Hct MCHC RDW Lymph % (Auto) [place] % (Auto) Eos % (Auto) Lymph # [place] # Lymph # (Auto) [place] # (Auto) Eos # (Auto) Seg Neutrophils % Seg Neuts % (Manual) Lymphocytes % (Manual) Seg Neutrophils # Seg Neutrophils # Man Lymphocytes # (Manual) Monocytes % (Manual) Eosinophils % (Manual) Monocytes # (Manual) Eosinophils # (Manual) D-Dimer Heparin Anti-Xa Level ABG pH POC ABG pCO2 POC ABG pO2 ABG pO2 ABG HCO3 ABG O2 Saturation ABG Base Excess ABG Hemoglobin ABG Oxyhemoglobin VBG pH 7.152 L* ABG Sodium ABG Potassium ABG Glucose Oxyhemoglobin Sodium Potassium 7.2 H* Chloride Carbon Dioxide BUN Creatinine Glucose POC Glucose Lactic Acid 3.40 H* Calcium Ferritin AST Alkaline Phosphatase Magnesium Lactate Dehydrogenase Total Creatine Kinase CK-MB (CK-2) C-Reactive Protein Total Protein Albumin Troponin T HDL Cholesterol Arterial Blood Glucose Urine WBC (Auto) Urine Creatinine Urine Total Protein Phenytoin Coronavirus (PCR) Crossmatch 05/28/20 05/28/20 05/28/20 15:33 15:33 15:51 WBC RBC Hgb Hct MCHC RDW Lymph % (Auto) [place] % (Auto) Eos % (Auto) Lymph # [place] # Lymph # (Auto) [place] # (Auto) Eos # (Auto) Seg Neutrophils % Seg Neuts % (Manual) Lymphocytes % (Manual) Seg Neutrophils # Seg Neutrophils # Man Lymphocytes # (Manual) Monocytes % (Manual) Eosinophils % (Manual) Monocytes # (Manual) Eosinophils # (Manual) D-Dimer 8780.43 H Heparin Anti-Xa Level ABG pH 7.284 L POC ABG pCO2 POC ABG pO2 ABG pO2 273.0 H ABG HCO3 ABG O2 Saturation 99.4 H ABG Base Excess -6.1 L ABG Hemoglobin 17.2 H ABG Oxyhemoglobin VBG pH ABG Sodium ABG Potassium ABG Glucose Oxyhemoglobin Sodium Potassium Chloride Carbon Dioxide BUN Creatinine Glucose 152 H POC Glucose Lactic Acid Calcium Ferritin AST Alkaline Phosphatase Magnesium Lactate Dehydrogenase 365 H Total Creatine Kinase CK-MB (CK-2) C-Reactive Protein Total Protein Albumin Troponin T HDL Cholesterol Arterial Blood Glucose Urine WBC (Auto) Urine Creatinine Urine Total Protein Phenytoin Coronavirus (PCR) Crossmatch 05/28/20 05/28/20 05/28/20 16:30 20:41 23:20 WBC RBC Hgb Hct MCHC RDW Lymph % (Auto) [place] % (Auto) Eos % (Auto) Lymph # [place] # Lymph # (Auto) [place] # (Auto) Eos # (Auto) Seg Neutrophils % Seg Neuts % (Manual) Lymphocytes % (Manual) Seg Neutrophils # Seg Neutrophils # Man Lymphocytes # (Manual) Monocytes % (Manual) Eosinophils % (Manual) Monocytes # (Manual) Eosinophils # (Manual) D-Dimer Heparin Anti-Xa Level ABG pH POC ABG pCO2 POC ABG pO2 ABG pO2 ABG HCO3 ABG O2 Saturation ABG Base Excess ABG Hemoglobin ABG Oxyhemoglobin VBG pH ABG Sodium ABG Potassium ABG Glucose Oxyhemoglobin Sodium Potassium Chloride Carbon Dioxide BUN Creatinine Glucose POC Glucose 225 H 224 H Lactic Acid Calcium Ferritin AST Alkaline Phosphatase Magnesium Lactate Dehydrogenase Total Creatine Kinase CK-MB (CK-2) C-Reactive Protein Total Protein Albumin Troponin T HDL Cholesterol Arterial Blood Glucose Urine WBC (Auto) 17.0 H Urine Creatinine Urine Total Protein Phenytoin Coronavirus (PCR) Crossmatch 05/28/20 05/29/20 05/29/20 Unknown 04:35 04:43 WBC RBC 3.48 L Hgb 9.8 L Hct 29.4 L MCHC RDW 16.0 H Lymph % (Auto) 7.4 L [place] % (Auto) Eos % (Auto) Lymph # 0.7 L [place] # Lymph # (Auto) [place] # (Auto) Eos # (Auto) Seg Neutrophils % 89.1 H Seg Neuts % (Manual) Lymphocytes % (Manual) Seg Neutrophils # 8.1 H Seg Neutrophils # Man Lymphocytes # (Manual) Monocytes % (Manual) Eosinophils % (Manual) Monocytes # (Manual) Eosinophils # (Manual) D-Dimer Heparin Anti-Xa Level ABG pH POC ABG pCO2 POC ABG pO2 ABG pO2 ABG HCO3 19.3 L ABG O2 Saturation ABG Base Excess -4.5 L ABG Hemoglobin 9.7 L ABG Oxyhemoglobin VBG pH ABG Sodium ABG Potassium ABG Glucose Oxyhemoglobin Sodium Potassium Chloride Carbon Dioxide BUN Creatinine Glucose POC Glucose Lactic Acid Calcium Ferritin AST Alkaline Phosphatase Magnesium Lactate Dehydrogenase Total Creatine Kinase CK-MB (CK-2) C-Reactive Protein Total Protein Albumin Troponin T HDL Cholesterol Arterial Blood Glucose Urine WBC (Auto) Urine Creatinine Urine Total Protein Phenytoin Coronavirus (PCR) Positive A Crossmatch 05/29/20 05/29/20 05/29/20 04:43 15:10 17:17 WBC RBC Hgb 9.3 L Hct 28.7 L MCHC RDW Lymph % (Auto) [place] % (Auto) Eos % (Auto) Lymph # [place] # Lymph # (Auto) [place] # (Auto) Eos # (Auto) Seg Neutrophils % Seg Neuts % (Manual) Lymphocytes % (Manual) Seg Neutrophils # Seg Neutrophils # Man Lymphocytes # (Manual) Monocytes % (Manual) Eosinophils % (Manual) Monocytes # (Manual) Eosinophils # (Manual) D-Dimer Heparin Anti-Xa Level ABG pH POC ABG pCO2 POC ABG pO2 ABG pO2 ABG HCO3 ABG O2 Saturation ABG Base Excess ABG Hemoglobin ABG Oxyhemoglobin VBG pH ABG Sodium ABG Potassium ABG Glucose Oxyhemoglobin Sodium Potassium Chloride 110.2 H Carbon Dioxide 18 L BUN 32 H Creatinine 1.4 H Glucose 180 H POC Glucose 147 H Lactic Acid Calcium Ferritin AST Alkaline Phosphatase Magnesium Lactate Dehydrogenase Total Creatine Kinase CK-MB (CK-2) C-Reactive Protein Total Protein Albumin Troponin T HDL Cholesterol Arterial Blood Glucose Urine WBC (Auto) Urine Creatinine Urine Total Protein Phenytoin Coronavirus (PCR) Crossmatch 05/30/20 05/30/20 05/30/20 00:08 00:12 04:15 WBC RBC Hgb Hct MCHC RDW Lymph % (Auto) [place] % (Auto) Eos % (Auto) Lymph # [place] # Lymph # (Auto) [place] # (Auto) Eos # (Auto) Seg Neutrophils % Seg Neuts % (Manual) Lymphocytes % (Manual) Seg Neutrophils # Seg Neutrophils # Man Lymphocytes # (Manual) Monocytes % (Manual) Eosinophils % (Manual) Monocytes # (Manual) Eosinophils # (Manual) D-Dimer Heparin Anti-Xa Level 0.71 H ABG pH 7.460 H POC ABG pCO2 POC ABG pO2 ABG pO2 106.0 H ABG HCO3 18.9 L ABG O2 Saturation ABG Base Excess -4.4 L ABG Hemoglobin 6.8 L ABG Oxyhemoglobin VBG pH ABG Sodium ABG Potassium ABG Glucose Oxyhemoglobin Sodium Potassium Chloride Carbon Dioxide BUN Creatinine Glucose POC Glucose 195 H Lactic Acid Calcium Ferritin AST Alkaline Phosphatase Magnesium Lactate Dehydrogenase Total Creatine Kinase CK-MB (CK-2) C-Reactive Protein Total Protein Albumin Troponin T HDL Cholesterol Arterial Blood Glucose Urine WBC (Auto) Urine Creatinine Urine Total Protein Phenytoin Coronavirus (PCR) Crossmatch 05/30/20 05/30/20 05/30/20 06:07 08:37 12:33 WBC RBC Hgb Hct MCHC RDW Lymph % (Auto) [place] % (Auto) Eos % (Auto) Lymph # [place] # Lymph # (Auto) [place] # (Auto) Eos # (Auto) Seg Neutrophils % Seg Neuts % (Manual) Lymphocytes % (Manual) Seg Neutrophils # Seg Neutrophils # Man Lymphocytes # (Manual) Monocytes % (Manual) Eosinophils % (Manual) Monocytes # (Manual) Eosinophils # (Manual) D-Dimer Heparin Anti-Xa Level 0.85 H ABG pH POC ABG pCO2 POC ABG pO2 ABG pO2 ABG HCO3 ABG O2 Saturation ABG Base Excess ABG Hemoglobin ABG Oxyhemoglobin VBG pH ABG Sodium ABG Potassium ABG Glucose Oxyhemoglobin Sodium Potassium Chloride Carbon Dioxide BUN Creatinine Glucose POC Glucose 182 H 187 H Lactic Acid Calcium Ferritin AST Alkaline Phosphatase Magnesium Lactate Dehydrogenase Total Creatine Kinase CK-MB (CK-2) C-Reactive Protein Total Protein Albumin Troponin T HDL Cholesterol Arterial Blood Glucose Urine WBC (Auto) Urine Creatinine Urine Total Protein Phenytoin Coronavirus (PCR) Crossmatch 05/30/20 05/30/20 05/30/20 15:58 17:57 23:36 WBC RBC Hgb Hct MCHC RDW Lymph % (Auto) [place] % (Auto) Eos % (Auto) Lymph # [place] # Lymph # (Auto) [place] # (Auto) Eos # (Auto) Seg Neutrophils % Seg Neuts % (Manual) Lymphocytes % (Manual) Seg Neutrophils # Seg Neutrophils # Man Lymphocytes # (Manual) Monocytes % (Manual) Eosinophils % (Manual) Monocytes # (Manual) Eosinophils # (Manual) D-Dimer Heparin Anti-Xa Level 1.03 H ABG pH POC ABG pCO2 POC ABG pO2 ABG pO2 ABG HCO3 ABG O2 Saturation ABG Base Excess ABG Hemoglobin ABG Oxyhemoglobin VBG pH ABG Sodium ABG Potassium ABG Glucose Oxyhemoglobin Sodium Potassium Chloride Carbon Dioxide BUN Creatinine Glucose POC Glucose 208 H 185 H Lactic Acid Calcium Ferritin AST Alkaline Phosphatase Magnesium Lactate Dehydrogenase Total Creatine Kinase CK-MB (CK-2) C-Reactive Protein Total Protein Albumin Troponin T HDL Cholesterol Arterial Blood Glucose Urine WBC (Auto) Urine Creatinine Urine Total Protein Phenytoin Coronavirus (PCR) Crossmatch 05/31/20 05/31/20 05/31/20 02:16 03:55 06:16 WBC RBC Hgb 9.2 L Hct 27.5 L MCHC RDW Lymph % (Auto) [place] % (Auto) Eos % (Auto) Lymph # [place] # Lymph # (Auto) [place] # (Auto) Eos # (Auto) Seg Neutrophils % Seg Neuts % (Manual) Lymphocytes % (Manual) Seg Neutrophils # Seg Neutrophils # Man Lymphocytes # (Manual) Monocytes % (Manual) Eosinophils % (Manual) Monocytes # (Manual) Eosinophils # (Manual) D-Dimer Heparin Anti-Xa Level ABG pH POC ABG pCO2 POC ABG pO2 ABG pO2 94.7 H ABG HCO3 18.6 L ABG O2 Saturation ABG Base Excess -5.5 L ABG Hemoglobin 7.9 L ABG Oxyhemoglobin VBG pH ABG Sodium ABG Potassium ABG Glucose Oxyhemoglobin Sodium Potassium Chloride Carbon Dioxide BUN Creatinine Glucose POC Glucose 160 H Lactic Acid Calcium Ferritin AST Alkaline Phosphatase Magnesium Lactate Dehydrogenase Total Creatine Kinase CK-MB (CK-2) C-Reactive Protein Total Protein Albumin Troponin T HDL Cholesterol Arterial Blood Glucose Urine WBC (Auto) Urine Creatinine Urine Total Protein Phenytoin Coronavirus (PCR) Crossmatch 05/31/20 05/31/20 05/31/20 12:20 13:03 18:13 WBC RBC Hgb Hct MCHC RDW Lymph % (Auto) [place] % (Auto) Eos % (Auto) Lymph # [place] # Lymph # (Auto) [place] # (Auto) Eos # (Auto) Seg Neutrophils % Seg Neuts % (Manual) Lymphocytes % (Manual) Seg Neutrophils # Seg Neutrophils # Man Lymphocytes # (Manual) Monocytes % (Manual) Eosinophils % (Manual) Monocytes # (Manual) Eosinophils # (Manual) D-Dimer Heparin Anti-Xa Level ABG pH POC ABG pCO2 POC ABG pO2 ABG pO2 ABG HCO3 ABG O2 Saturation ABG Base Excess ABG Hemoglobin ABG Oxyhemoglobin VBG pH ABG Sodium ABG Potassium ABG Glucose Oxyhemoglobin Sodium Potassium Chloride Carbon Dioxide 18 L BUN 48 H Creatinine 1.6 H Glucose 115 H POC Glucose 128 H 159 H Lactic Acid Calcium 8.3 L Ferritin AST Alkaline Phosphatase Magnesium Lactate Dehydrogenase Total Creatine Kinase CK-MB (CK-2) C-Reactive Protein Total Protein 5.4 L Albumin 2.4 L Troponin T HDL Cholesterol Arterial Blood Glucose Urine WBC (Auto) Urine Creatinine Urine Total Protein Phenytoin Coronavirus (PCR) Crossmatch 05/31/20 06/01/20 06/01/20 23:51 04:00 05:48 WBC RBC Hgb Hct MCHC RDW Lymph % (Auto) [place] % (Auto) Eos % (Auto) Lymph # [place] # Lymph # (Auto) [place] # (Auto) Eos # (Auto) Seg Neutrophils % Seg Neuts % (Manual) Lymphocytes % (Manual) Seg Neutrophils # Seg Neutrophils # Man Lymphocytes # (Manual) Monocytes % (Manual) Eosinophils % (Manual) Monocytes # (Manual) Eosinophils # (Manual) D-Dimer Heparin Anti-Xa Level ABG pH POC ABG pCO2 POC ABG pO2 ABG pO2 109.8 H ABG HCO3 18.8 L ABG O2 Saturation ABG Base Excess -5.9 L ABG Hemoglobin 7.8 L ABG Oxyhemoglobin VBG pH ABG Sodium ABG Potassium ABG Glucose Oxyhemoglobin Sodium Potassium Chloride Carbon Dioxide BUN Creatinine Glucose POC Glucose 171 H 133 H Lactic Acid Calcium Ferritin AST Alkaline Phosphatase Magnesium Lactate Dehydrogenase Total Creatine Kinase CK-MB (CK-2) C-Reactive Protein Total Protein Albumin Troponin T HDL Cholesterol Arterial Blood Glucose Urine WBC (Auto) Urine Creatinine Urine Total Protein Phenytoin Coronavirus (PCR) Crossmatch 06/01/20 06/01/20 06/02/20 12:28 17:29 00:08 WBC RBC Hgb Hct MCHC RDW Lymph % (Auto) [place] % (Auto) Eos % (Auto) Lymph # [place] # Lymph # (Auto) [place] # (Auto) Eos # (Auto) Seg Neutrophils % Seg Neuts % (Manual) Lymphocytes % (Manual) Seg Neutrophils # Seg Neutrophils # Man Lymphocytes # (Manual) Monocytes % (Manual) Eosinophils % (Manual) Monocytes # (Manual) Eosinophils # (Manual) D-Dimer Heparin Anti-Xa Level ABG pH POC ABG pCO2 POC ABG pO2 ABG pO2 ABG HCO3 ABG O2 Saturation ABG Base Excess ABG Hemoglobin ABG Oxyhemoglobin VBG pH ABG Sodium ABG Potassium ABG Glucose Oxyhemoglobin Sodium Potassium Chloride Carbon Dioxide BUN Creatinine Glucose POC Glucose 199 H 209 H 162 H Lactic Acid Calcium Ferritin AST Alkaline Phosphatase Magnesium Lactate Dehydrogenase Total Creatine Kinase CK-MB (CK-2) C-Reactive Protein Total Protein Albumin Troponin T HDL Cholesterol Arterial Blood Glucose Urine WBC (Auto) Urine Creatinine Urine Total Protein Phenytoin Coronavirus (PCR) Crossmatch 06/02/20 06/02/20 06/02/20 04:20 04:20 04:44 WBC RBC Hgb 10.0 L Hct MCHC RDW Lymph % (Auto) [place] % (Auto) Eos % (Auto) Lymph # [place] # Lymph # (Auto) [place] # (Auto) Eos # (Auto) Seg Neutrophils % Seg Neuts % (Manual) Lymphocytes % (Manual) Seg Neutrophils # Seg Neutrophils # Man Lymphocytes # (Manual) Monocytes % (Manual) Eosinophils % (Manual) Monocytes # (Manual) Eosinophils # (Manual) D-Dimer Heparin Anti-Xa Level 0.10 L ABG pH POC ABG pCO2 POC ABG pO2 ABG pO2 150.6 H ABG HCO3 ABG O2 Saturation ABG Base Excess -4.1 L ABG Hemoglobin 11.8 L ABG Oxyhemoglobin VBG pH ABG Sodium ABG Potassium ABG Glucose Oxyhemoglobin Sodium Potassium Chloride Carbon Dioxide BUN Creatinine Glucose POC Glucose Lactic Acid Calcium Ferritin AST Alkaline Phosphatase Magnesium Lactate Dehydrogenase Total Creatine Kinase CK-MB (CK-2) C-Reactive Protein Total Protein Albumin Troponin T HDL Cholesterol Arterial Blood Glucose Urine WBC (Auto) Urine Creatinine Urine Total Protein Phenytoin Coronavirus (PCR) Crossmatch 06/02/20 06/02/20 06/02/20 05:53 12:04 13:49 WBC RBC Hgb Hct MCHC RDW Lymph % (Auto) [place] % (Auto) Eos % (Auto) Lymph # [place] # Lymph # (Auto) [place] # (Auto) Eos # (Auto) Seg Neutrophils % Seg Neuts % (Manual) Lymphocytes % (Manual) Seg Neutrophils # Seg Neutrophils # Man Lymphocytes # (Manual) Monocytes % (Manual) Eosinophils % (Manual) Monocytes # (Manual) Eosinophils # (Manual) D-Dimer Heparin Anti-Xa Level 0.28 L ABG pH POC ABG pCO2 POC ABG pO2 ABG pO2 ABG HCO3 ABG O2 Saturation ABG Base Excess ABG Hemoglobin ABG Oxyhemoglobin VBG pH ABG Sodium ABG Potassium ABG Glucose Oxyhemoglobin Sodium Potassium Chloride Carbon Dioxide BUN Creatinine Glucose POC Glucose 149 H 220 H Lactic Acid Calcium Ferritin AST Alkaline Phosphatase Magnesium Lactate Dehydrogenase Total Creatine Kinase CK-MB (CK-2) C-Reactive Protein Total Protein Albumin Troponin T HDL Cholesterol Arterial Blood Glucose Urine WBC (Auto) Urine Creatinine Urine Total Protein Phenytoin Coronavirus (PCR) Crossmatch 06/02/20 06/02/20 06/03/20 13:49 18:31 00:42 WBC RBC Hgb Hct MCHC RDW Lymph % (Auto) [place] % (Auto) Eos % (Auto) Lymph # [place] # Lymph # (Auto) [place] # (Auto) Eos # (Auto) Seg Neutrophils % Seg Neuts % (Manual) Lymphocytes % (Manual) Seg Neutrophils # Seg Neutrophils # Man Lymphocytes # (Manual) Monocytes % (Manual) Eosinophils % (Manual) Monocytes # (Manual) Eosinophils # (Manual) D-Dimer 769.68 H Heparin Anti-Xa Level ABG pH POC ABG pCO2 POC ABG pO2 ABG pO2 ABG HCO3 ABG O2 Saturation ABG Base Excess ABG Hemoglobin ABG Oxyhemoglobin VBG pH ABG Sodium ABG Potassium ABG Glucose Oxyhemoglobin Sodium Potassium Chloride Carbon Dioxide BUN Creatinine Glucose POC Glucose 225 H 212 H Lactic Acid Calcium Ferritin AST Alkaline Phosphatase Magnesium Lactate Dehydrogenase Total Creatine Kinase CK-MB (CK-2) C-Reactive Protein Total Protein Albumin Troponin T HDL Cholesterol Arterial Blood Glucose Urine WBC (Auto) Urine Creatinine Urine Total Protein Phenytoin Coronavirus (PCR) Crossmatch 06/03/20 06/03/20 06/03/20 05:16 05:16 05:25 WBC 11.4 H RBC Hgb Hct MCHC RDW 16.4 H Lymph % (Auto) [place] % (Auto) Eos % (Auto) Lymph # [place] # Lymph # (Auto) [place] # (Auto) Eos # (Auto) Seg Neutrophils % Seg Neuts % (Manual) Lymphocytes % (Manual) Seg Neutrophils # Seg Neutrophils # Man Lymphocytes # (Manual) Monocytes % (Manual) Eosinophils % (Manual) Monocytes # (Manual) Eosinophils # (Manual) D-Dimer Heparin Anti-Xa Level ABG pH POC ABG pCO2 POC ABG pO2 ABG pO2 160.9 H ABG HCO3 19.4 L ABG O2 Saturation ABG Base Excess -4.9 L ABG Hemoglobin 7.0 L ABG Oxyhemoglobin VBG pH ABG Sodium ABG Potassium ABG Glucose Oxyhemoglobin Sodium Potassium Chloride Carbon Dioxide 18 L BUN 65 H Creatinine 2.0 H Glucose 175 H POC Glucose Lactic Acid Calcium 8.0 L Ferritin AST Alkaline Phosphatase Magnesium Lactate Dehydrogenase Total Creatine Kinase CK-MB (CK-2) C-Reactive Protein Total Protein 5.5 L Albumin 2.2 L Troponin T HDL Cholesterol Arterial Blood Glucose Urine WBC (Auto) Urine Creatinine Urine Total Protein Phenytoin Coronavirus (PCR) Crossmatch 06/03/20 06/03/20 06/03/20 06:07 11:58 18:24 WBC RBC Hgb Hct MCHC RDW Lymph % (Auto) [place] % (Auto) Eos % (Auto) Lymph # [place] # Lymph # (Auto) [place] # (Auto) Eos # (Auto) Seg Neutrophils % Seg Neuts % (Manual) Lymphocytes % (Manual) Seg Neutrophils # Seg Neutrophils # Man Lymphocytes # (Manual) Monocytes % (Manual) Eosinophils % (Manual) Monocytes # (Manual) Eosinophils # (Manual) D-Dimer Heparin Anti-Xa Level ABG pH POC ABG pCO2 POC ABG pO2 ABG pO2 ABG HCO3 ABG O2 Saturation ABG Base Excess ABG Hemoglobin ABG Oxyhemoglobin VBG pH ABG Sodium ABG Potassium ABG Glucose Oxyhemoglobin Sodium Potassium Chloride Carbon Dioxide BUN Creatinine Glucose POC Glucose 177 H 163 H 211 H Lactic Acid Calcium Ferritin AST Alkaline Phosphatase Magnesium Lactate Dehydrogenase Total Creatine Kinase CK-MB (CK-2) C-Reactive Protein Total Protein Albumin Troponin T HDL Cholesterol Arterial Blood Glucose Urine WBC (Auto) Urine Creatinine Urine Total Protein Phenytoin Coronavirus (PCR) Crossmatch 06/03/20 06/03/20 06/04/20 21:50 Unknown 00:26 WBC RBC Hgb Hct MCHC RDW Lymph % (Auto) [place] % (Auto) Eos % (Auto) Lymph # [place] # Lymph # (Auto) [place] # (Auto) Eos # (Auto) Seg Neutrophils % Seg Neuts % (Manual) Lymphocytes % (Manual) Seg Neutrophils # Seg Neutrophils # Man Lymphocytes # (Manual) Monocytes % (Manual) Eosinophils % (Manual) Monocytes # (Manual) Eosinophils # (Manual) D-Dimer Heparin Anti-Xa Level ABG pH POC ABG pCO2 POC ABG pO2 ABG pO2 ABG HCO3 ABG O2 Saturation ABG Base Excess ABG Hemoglobin ABG Oxyhemoglobin VBG pH ABG Sodium ABG Potassium ABG Glucose Oxyhemoglobin Sodium 135 L Potassium Chloride Carbon Dioxide 18 L BUN Creatinine Glucose POC Glucose 241 H Lactic Acid Calcium Ferritin AST Alkaline Phosphatase Magnesium Lactate Dehydrogenase Total Creatine Kinase CK-MB (CK-2) C-Reactive Protein Total Protein Albumin Troponin T HDL Cholesterol Arterial Blood Glucose Urine WBC (Auto) 11.0 H Urine Creatinine Urine Total Protein Phenytoin Coronavirus (PCR) Crossmatch 06/04/20 06/04/20 06/04/20 03:35 04:19 04:19 WBC RBC 3.15 L Hgb 8.9 L Hct 26.8 L D MCHC RDW 15.9 H Lymph % (Auto) 6.0 L [place] % (Auto) Eos % (Auto) Lymph # 0.6 L [place] # Lymph # (Auto) [place] # (Auto) Eos # (Auto) Seg Neutrophils % 86.6 H Seg Neuts % (Manual) Lymphocytes % (Manual) Seg Neutrophils # 9.1 H Seg Neutrophils # Man Lymphocytes # (Manual) Monocytes % (Manual) Eosinophils % (Manual) Monocytes # (Manual) Eosinophils # (Manual) D-Dimer Heparin Anti-Xa Level ABG pH 7.331 L POC ABG pCO2 POC ABG pO2 ABG pO2 ABG HCO3 ABG O2 Saturation ABG Base Excess -4.7 L ABG Hemoglobin 11.0 L ABG Oxyhemoglobin VBG pH ABG Sodium ABG Potassium ABG Glucose Oxyhemoglobin 93.9 L Sodium 136 L Potassium Chloride Carbon Dioxide 20 L BUN 73 H Creatinine 2.0 H Glucose 192 H POC Glucose Lactic Acid Calcium 8.0 L Ferritin AST Alkaline Phosphatase Magnesium Lactate Dehydrogenase 271 H Total Creatine Kinase CK-MB (CK-2) C-Reactive Protein 2.20 H Total Protein 5.0 L Albumin 2.0 L Troponin T HDL Cholesterol Arterial Blood Glucose Urine WBC (Auto) Urine Creatinine Urine Total Protein Phenytoin Coronavirus (PCR) Crossmatch 06/04/20 06/04/20 06/04/20 04:19 05:51 11:48 WBC RBC Hgb Hct MCHC RDW Lymph % (Auto) [place] % (Auto) Eos % (Auto) Lymph # [place] # Lymph # (Auto) [place] # (Auto) Eos # (Auto) Seg Neutrophils % Seg Neuts % (Manual) Lymphocytes % (Manual) Seg Neutrophils # Seg Neutrophils # Man Lymphocytes # (Manual) Monocytes % (Manual) Eosinophils % (Manual) Monocytes # (Manual) Eosinophils # (Manual) D-Dimer 414.52 H Heparin Anti-Xa Level ABG pH POC ABG pCO2 POC ABG pO2 ABG pO2 ABG HCO3 ABG O2 Saturation ABG Base Excess ABG Hemoglobin ABG Oxyhemoglobin VBG pH ABG Sodium ABG Potassium ABG Glucose Oxyhemoglobin Sodium Potassium Chloride Carbon Dioxide BUN Creatinine Glucose POC Glucose 179 H 213 H Lactic Acid Calcium Ferritin AST Alkaline Phosphatase Magnesium Lactate Dehydrogenase Total Creatine Kinase CK-MB (CK-2) C-Reactive Protein Total Protein Albumin Troponin T HDL Cholesterol Arterial Blood Glucose Urine WBC (Auto) Urine Creatinine Urine Total Protein Phenytoin Coronavirus (PCR) Crossmatch 06/04/20 06/05/20 06/05/20 18:25 00:16 05:00 WBC RBC Hgb Hct MCHC RDW Lymph % (Auto) [place] % (Auto) Eos % (Auto) Lymph # [place] # Lymph # (Auto) [place] # (Auto) Eos # (Auto) Seg Neutrophils % Seg Neuts % (Manual) Lymphocytes % (Manual) Seg Neutrophils # Seg Neutrophils # Man Lymphocytes # (Manual) Monocytes % (Manual) Eosinophils % (Manual) Monocytes # (Manual) Eosinophils # (Manual) D-Dimer Heparin Anti-Xa Level ABG pH 7.286 L POC ABG pCO2 POC ABG pO2 ABG pO2 96.2 H ABG HCO3 ABG O2 Saturation ABG Base Excess -6.3 L ABG Hemoglobin 8.8 L ABG Oxyhemoglobin VBG pH ABG Sodium ABG Potassium ABG Glucose Oxyhemoglobin 94.8 L Sodium Potassium Chloride Carbon Dioxide BUN Creatinine Glucose POC Glucose 238 H 183 H Lactic Acid Calcium Ferritin AST Alkaline Phosphatase Magnesium Lactate Dehydrogenase Total Creatine Kinase CK-MB (CK-2) C-Reactive Protein Total Protein Albumin Troponin T HDL Cholesterol Arterial Blood Glucose Urine WBC (Auto) Urine Creatinine Urine Total Protein Phenytoin Coronavirus (PCR) Crossmatch 06/05/20 06/05/20 06/05/20 05:39 07:25 07:25 WBC RBC 2.97 L Hgb 8.7 L Hct 25.7 L MCHC RDW 16.0 H Lymph % (Auto) 8.8 L [place] % (Auto) 13.3 H Eos % (Auto) Lymph # 0.8 L [place] # 1.3 H Lymph # (Auto) [place] # (Auto) Eos # (Auto) Seg Neutrophils % 77.3 H Seg Neuts % (Manual) Lymphocytes % (Manual) Seg Neutrophils # Seg Neutrophils # Man Lymphocytes # (Manual) Monocytes % (Manual) Eosinophils % (Manual) Monocytes # (Manual) Eosinophils # (Manual) D-Dimer Heparin Anti-Xa Level ABG pH POC ABG pCO2 POC ABG pO2 ABG pO2 ABG HCO3 ABG O2 Saturation ABG Base Excess ABG Hemoglobin ABG Oxyhemoglobin VBG pH ABG Sodium ABG Potassium ABG Glucose Oxyhemoglobin Sodium 133 L Potassium Chloride Carbon Dioxide 17 L BUN 89 H Creatinine 2.8 H Glucose 176 H POC Glucose 149 H Lactic Acid Calcium 7.7 L Ferritin AST Alkaline Phosphatase Magnesium Lactate Dehydrogenase Total Creatine Kinase CK-MB (CK-2) C-Reactive Protein Total Protein 4.2 L Albumin 1.9 L Troponin T HDL Cholesterol Arterial Blood Glucose Urine WBC (Auto) Urine Creatinine Urine Total Protein Phenytoin Coronavirus (PCR) Crossmatch 06/05/20 06/05/20 06/05/20 07:25 12:05 15:41 WBC RBC Hgb Hct MCHC RDW Lymph % (Auto) [place] % (Auto) Eos % (Auto) Lymph # [place] # Lymph # (Auto) [place] # (Auto) Eos # (Auto) Seg Neutrophils % Seg Neuts % (Manual) Lymphocytes % (Manual) Seg Neutrophils # Seg Neutrophils # Man Lymphocytes # (Manual) Monocytes % (Manual) Eosinophils % (Manual) Monocytes # (Manual) Eosinophils # (Manual) D-Dimer Heparin Anti-Xa Level 0.76 H 0.81 H ABG pH POC ABG pCO2 POC ABG pO2 ABG pO2 ABG HCO3 ABG O2 Saturation ABG Base Excess ABG Hemoglobin ABG Oxyhemoglobin VBG pH ABG Sodium ABG Potassium ABG Glucose Oxyhemoglobin Sodium Potassium Chloride Carbon Dioxide BUN Creatinine Glucose POC Glucose 198 H Lactic Acid Calcium Ferritin AST Alkaline Phosphatase Magnesium Lactate Dehydrogenase Total Creatine Kinase CK-MB (CK-2) C-Reactive Protein Total Protein Albumin Troponin T HDL Cholesterol Arterial Blood Glucose Urine WBC (Auto) Urine Creatinine Urine Total Protein Phenytoin Coronavirus (PCR) Crossmatch 06/05/20 06/05/20 06/06/20 18:08 23:25 04:00 WBC RBC Hgb Hct MCHC RDW Lymph % (Auto) [place] % (Auto) Eos % (Auto) Lymph # [place] # Lymph # (Auto) [place] # (Auto) Eos # (Auto) Seg Neutrophils % Seg Neuts % (Manual) Lymphocytes % (Manual) Seg Neutrophils # Seg Neutrophils # Man Lymphocytes # (Manual) Monocytes % (Manual) Eosinophils % (Manual) Monocytes # (Manual) Eosinophils # (Manual) D-Dimer Heparin Anti-Xa Level ABG pH POC ABG pCO2 POC ABG pO2 ABG pO2 ABG HCO3 ABG O2 Saturation ABG Base Excess ABG Hemoglobin ABG Oxyhemoglobin VBG pH ABG Sodium ABG Potassium ABG Glucose Oxyhemoglobin Sodium Potassium Chloride Carbon Dioxide BUN Creatinine Glucose POC Glucose 223 H 169 H Lactic Acid Calcium Ferritin AST Alkaline Phosphatase Magnesium Lactate Dehydrogenase Total Creatine Kinase CK-MB (CK-2) C-Reactive Protein Total Protein Albumin Troponin T HDL Cholesterol Arterial Blood Glucose Urine WBC (Auto) 15.0 H Urine Creatinine Urine Total Protein Phenytoin Coronavirus (PCR) Crossmatch 06/06/20 06/06/20 06/06/20 04:00 05:33 05:38 WBC RBC 2.97 L Hgb 8.7 L Hct 26.8 L MCHC RDW 16.8 H Lymph % (Auto) [place] % (Auto) Eos % (Auto) Lymph # [place] # Lymph # (Auto) [place] # (Auto) Eos # (Auto) Seg Neutrophils % Seg Neuts % (Manual) Lymphocytes % (Manual) Seg Neutrophils # Seg Neutrophils # Man Lymphocytes # (Manual) Monocytes % (Manual) Eosinophils % (Manual) Monocytes # (Manual) Eosinophils # (Manual) D-Dimer Heparin Anti-Xa Level ABG pH POC ABG pCO2 POC ABG pO2 ABG pO2 ABG HCO3 ABG O2 Saturation ABG Base Excess ABG Hemoglobin ABG Oxyhemoglobin VBG pH ABG Sodium ABG Potassium ABG Glucose Oxyhemoglobin Sodium Potassium Chloride Carbon Dioxide BUN Creatinine Glucose POC Glucose 186 H Lactic Acid Calcium Ferritin AST Alkaline Phosphatase Magnesium Lactate Dehydrogenase Total Creatine Kinase CK-MB (CK-2) C-Reactive Protein Total Protein Albumin Troponin T HDL Cholesterol Arterial Blood Glucose Urine WBC (Auto) Urine Creatinine 82.2 H Urine Total Protein 196 H Phenytoin Coronavirus (PCR) Crossmatch 06/06/20 06/06/20 06/06/20 05:38 12:25 17:03 WBC RBC Hgb Hct MCHC RDW Lymph % (Auto) [place] % (Auto) Eos % (Auto) Lymph # [place] # Lymph # (Auto) [place] # (Auto) Eos # (Auto) Seg Neutrophils % Seg Neuts % (Manual) Lymphocytes % (Manual) Seg Neutrophils # Seg Neutrophils # Man Lymphocytes # (Manual) Monocytes % (Manual) Eosinophils % (Manual) Monocytes # (Manual) Eosinophils # (Manual) D-Dimer Heparin Anti-Xa Level ABG pH POC ABG pCO2 POC ABG pO2 ABG pO2 ABG HCO3 ABG O2 Saturation ABG Base Excess ABG Hemoglobin ABG Oxyhemoglobin VBG pH ABG Sodium ABG Potassium ABG Glucose Oxyhemoglobin Sodium 134 L Potassium 5.2 H Chloride Carbon Dioxide 18 L BUN 97 H Creatinine 2.5 H Glucose 193 H POC Glucose 239 H 252 H Lactic Acid Calcium 7.5 L Ferritin AST Alkaline Phosphatase Magnesium Lactate Dehydrogenase Total Creatine Kinase CK-MB (CK-2) C-Reactive Protein Total Protein 4.1 L Albumin 1.9 L Troponin T HDL Cholesterol Arterial Blood Glucose Urine WBC (Auto) Urine Creatinine Urine Total Protein Phenytoin Coronavirus (PCR) Crossmatch 06/07/20 06/07/20 06/07/20 00:16 01:49 04:00 WBC RBC 2.91 L Hgb 8.4 L Hct 25.0 L MCHC RDW 16.1 H Lymph % (Auto) 5.7 L [place] % (Auto) 10.5 H Eos % (Auto) Lymph # 0.6 L [place] # 1.1 H Lymph # (Auto) [place] # (Auto) Eos # (Auto) Seg Neutrophils % 83.6 H Seg Neuts % (Manual) Lymphocytes % (Manual) Seg Neutrophils # 9.1 H Seg Neutrophils # Man Lymphocytes # (Manual) Monocytes % (Manual) Eosinophils % (Manual) Monocytes # (Manual) Eosinophils # (Manual) D-Dimer Heparin Anti-Xa Level 0.26 L ABG pH POC ABG pCO2 POC ABG pO2 ABG pO2 ABG HCO3 ABG O2 Saturation ABG Base Excess ABG Hemoglobin ABG Oxyhemoglobin VBG pH ABG Sodium ABG Potassium ABG Glucose Oxyhemoglobin Sodium Potassium Chloride Carbon Dioxide BUN Creatinine Glucose POC Glucose 173 H Lactic Acid Calcium Ferritin AST Alkaline Phosphatase Magnesium Lactate Dehydrogenase Total Creatine Kinase CK-MB (CK-2) C-Reactive Protein Total Protein Albumin Troponin T HDL Cholesterol Arterial Blood Glucose Urine WBC (Auto) Urine Creatinine Urine Total Protein Phenytoin Coronavirus (PCR) Crossmatch 06/07/20 06/07/20 06/07/20 04:00 04:54 05:51 WBC RBC Hgb Hct MCHC RDW Lymph % (Auto) [place] % (Auto) Eos % (Auto) Lymph # [place] # Lymph # (Auto) [place] # (Auto) Eos # (Auto) Seg Neutrophils % Seg Neuts % (Manual) Lymphocytes % (Manual) Seg Neutrophils # Seg Neutrophils # Man Lymphocytes # (Manual) Monocytes % (Manual) Eosinophils % (Manual) Monocytes # (Manual) Eosinophils # (Manual) D-Dimer Heparin Anti-Xa Level ABG pH 7.317 L POC ABG pCO2 POC ABG pO2 ABG pO2 71.4 L ABG HCO3 ABG O2 Saturation 94.3 L ABG Base Excess -4.8 L ABG Hemoglobin 7.1 L ABG Oxyhemoglobin VBG pH ABG Sodium ABG Potassium ABG Glucose Oxyhemoglobin 92.2 L Sodium 133 L Potassium Chloride Carbon Dioxide 18 L BUN 100 H Creatinine 2.5 H Glucose 158 H POC Glucose 168 H Lactic Acid Calcium 7.6 L Ferritin AST Alkaline Phosphatase Magnesium Lactate Dehydrogenase Total Creatine Kinase CK-MB (CK-2) C-Reactive Protein Total Protein 4.7 L Albumin 2.0 L Troponin T HDL Cholesterol Arterial Blood Glucose Urine WBC (Auto) Urine Creatinine Urine Total Protein Phenytoin Coronavirus (PCR) Crossmatch 06/07/20 06/07/20 06/07/20 12:03 17:17 20:10 WBC RBC Hgb Hct MCHC RDW Lymph % (Auto) [place] % (Auto) Eos % (Auto) Lymph # [place] # Lymph # (Auto) [place] # (Auto) Eos # (Auto) Seg Neutrophils % Seg Neuts % (Manual) Lymphocytes % (Manual) Seg Neutrophils # Seg Neutrophils # Man Lymphocytes # (Manual) Monocytes % (Manual) Eosinophils % (Manual) Monocytes # (Manual) Eosinophils # (Manual) D-Dimer Heparin Anti-Xa Level 0.17 L ABG pH POC ABG pCO2 POC ABG pO2 ABG pO2 ABG HCO3 ABG O2 Saturation ABG Base Excess ABG Hemoglobin ABG Oxyhemoglobin VBG pH ABG Sodium ABG Potassium ABG Glucose Oxyhemoglobin Sodium Potassium Chloride Carbon Dioxide BUN Creatinine Glucose POC Glucose 276 H 281 H Lactic Acid Calcium Ferritin AST Alkaline Phosphatase Magnesium Lactate Dehydrogenase Total Creatine Kinase CK-MB (CK-2) C-Reactive Protein Total Protein Albumin Troponin T HDL Cholesterol Arterial Blood Glucose Urine WBC (Auto) Urine Creatinine Urine Total Protein Phenytoin Coronavirus (PCR) Crossmatch 06/08/20 06/08/20 06/08/20 00:02 04:47 04:47 WBC 16.4 H RBC 3.07 L Hgb 8.6 L Hct 26.5 L MCHC RDW 16.3 H Lymph % (Auto) [place] % (Auto) Eos % (Auto) Lymph # [place] # Lymph # (Auto) [place] # (Auto) Eos # (Auto) Seg Neutrophils % Seg Neuts % (Manual) 90.0 H Lymphocytes % (Manual) 3.0 L Seg Neutrophils # Seg Neutrophils # Man 14.8 H Lymphocytes # (Manual) 0.5 L Monocytes % (Manual) Eosinophils % (Manual) Monocytes # (Manual) 1.1 H Eosinophils # (Manual) D-Dimer Heparin Anti-Xa Level ABG pH POC ABG pCO2 POC ABG pO2 ABG pO2 ABG HCO3 ABG O2 Saturation ABG Base Excess ABG Hemoglobin ABG Oxyhemoglobin VBG pH ABG Sodium ABG Potassium ABG Glucose Oxyhemoglobin Sodium 129 L Potassium Chloride 95.6 L Carbon Dioxide 17 L BUN 106 H Creatinine 2.5 H Glucose 213 H POC Glucose 242 H Lactic Acid Calcium 7.6 L Ferritin AST Alkaline Phosphatase Magnesium Lactate Dehydrogenase Total Creatine Kinase CK-MB (CK-2) C-Reactive Protein Total Protein 5.0 L Albumin 2.1 L Troponin T HDL Cholesterol Arterial Blood Glucose Urine WBC (Auto) Urine Creatinine Urine Total Protein Phenytoin Coronavirus (PCR) Crossmatch 06/08/20 06/08/20 06/08/20 05:40 11:55 17:54 WBC RBC Hgb Hct MCHC RDW Lymph % (Auto) [place] % (Auto) Eos % (Auto) Lymph # [place] # Lymph # (Auto) [place] # (Auto) Eos # (Auto) Seg Neutrophils % Seg Neuts % (Manual) Lymphocytes % (Manual) Seg Neutrophils # Seg Neutrophils # Man Lymphocytes # (Manual) Monocytes % (Manual) Eosinophils % (Manual) Monocytes # (Manual) Eosinophils # (Manual) D-Dimer Heparin Anti-Xa Level ABG pH POC ABG pCO2 POC ABG pO2 ABG pO2 ABG HCO3 ABG O2 Saturation ABG Base Excess ABG Hemoglobin ABG Oxyhemoglobin VBG pH ABG Sodium ABG Potassium ABG Glucose Oxyhemoglobin Sodium Potassium Chloride Carbon Dioxide BUN Creatinine Glucose POC Glucose 221 H 218 H 163 H Lactic Acid Calcium Ferritin AST Alkaline Phosphatase Magnesium Lactate Dehydrogenase Total Creatine Kinase CK-MB (CK-2) C-Reactive Protein Total Protein Albumin Troponin T HDL Cholesterol Arterial Blood Glucose Urine WBC (Auto) Urine Creatinine Urine Total Protein Phenytoin Coronavirus (PCR) Crossmatch 06/08/20 06/09/20 06/09/20 22:01 00:09 05:16 WBC 19.0 H RBC 3.35 L Hgb 9.2 L Hct 28.5 L MCHC RDW 16.3 H Lymph % (Auto) [place] % (Auto) Eos % (Auto) Lymph # [place] # Lymph # (Auto) [place] # (Auto) Eos # (Auto) Seg Neutrophils % Seg Neuts % (Manual) 85.0 H Lymphocytes % (Manual) 7.0 L Seg Neutrophils # Seg Neutrophils # Man 16.2 H Lymphocytes # (Manual) Monocytes % (Manual) Eosinophils % (Manual) Monocytes # (Manual) 1.3 H Eosinophils # (Manual) D-Dimer Heparin Anti-Xa Level ABG pH POC ABG pCO2 POC ABG pO2 ABG pO2 ABG HCO3 ABG O2 Saturation ABG Base Excess ABG Hemoglobin ABG Oxyhemoglobin VBG pH ABG Sodium ABG Potassium ABG Glucose Oxyhemoglobin Sodium Potassium Chloride Carbon Dioxide BUN Creatinine Glucose POC Glucose 182 H 150 H Lactic Acid Calcium Ferritin AST Alkaline Phosphatase Magnesium Lactate Dehydrogenase Total Creatine Kinase CK-MB (CK-2) C-Reactive Protein Total Protein Albumin Troponin T HDL Cholesterol Arterial Blood Glucose Urine WBC (Auto) Urine Creatinine Urine Total Protein Phenytoin Coronavirus (PCR) Crossmatch 06/09/20 06/09/20 06/09/20 05:16 05:24 11:29 WBC RBC Hgb Hct MCHC RDW Lymph % (Auto) [place] % (Auto) Eos % (Auto) Lymph # [place] # Lymph # (Auto) [place] # (Auto) Eos # (Auto) Seg Neutrophils % Seg Neuts % (Manual) Lymphocytes % (Manual) Seg Neutrophils # Seg Neutrophils # Man Lymphocytes # (Manual) Monocytes % (Manual) Eosinophils % (Manual) Monocytes # (Manual) Eosinophils # (Manual) D-Dimer Heparin Anti-Xa Level ABG pH POC ABG pCO2 POC ABG pO2 ABG pO2 ABG HCO3 ABG O2 Saturation ABG Base Excess ABG Hemoglobin ABG Oxyhemoglobin VBG pH ABG Sodium ABG Potassium ABG Glucose Oxyhemoglobin Sodium 133 L Potassium Chloride Carbon Dioxide 19 L BUN 109 H Creatinine 2.1 H Glucose 133 H POC Glucose 128 H 119 H Lactic Acid Calcium 7.7 L Ferritin AST Alkaline Phosphatase < 5 L Magnesium Lactate Dehydrogenase Total Creatine Kinase CK-MB (CK-2) C-Reactive Protein Total Protein 4.6 L Albumin < 0.2 L Troponin T HDL Cholesterol Arterial Blood Glucose Urine WBC (Auto) Urine Creatinine Urine Total Protein Phenytoin Coronavirus (PCR) Crossmatch 06/09/20 06/10/20 06/10/20 17:32 00:00 05:49 WBC RBC Hgb Hct MCHC RDW Lymph % (Auto) [place] % (Auto) Eos % (Auto) Lymph # [place] # Lymph # (Auto) [place] # (Auto) Eos # (Auto) Seg Neutrophils % Seg Neuts % (Manual) Lymphocytes % (Manual) Seg Neutrophils # Seg Neutrophils # Man Lymphocytes # (Manual) Monocytes % (Manual) Eosinophils % (Manual) Monocytes # (Manual) Eosinophils # (Manual) D-Dimer Heparin Anti-Xa Level 0.19 L ABG pH POC ABG pCO2 POC ABG pO2 ABG pO2 ABG HCO3 ABG O2 Saturation ABG Base Excess ABG Hemoglobin ABG Oxyhemoglobin VBG pH ABG Sodium ABG Potassium ABG Glucose Oxyhemoglobin Sodium Potassium Chloride Carbon Dioxide BUN Creatinine Glucose POC Glucose 106 H 117 H Lactic Acid Calcium Ferritin AST Alkaline Phosphatase Magnesium Lactate Dehydrogenase Total Creatine Kinase CK-MB (CK-2) C-Reactive Protein Total Protein Albumin Troponin T HDL Cholesterol Arterial Blood Glucose Urine WBC (Auto) Urine Creatinine Urine Total Protein Phenytoin Coronavirus (PCR) Crossmatch 06/10/20 06/10/20 06/10/20 05:54 07:40 11:40 WBC RBC Hgb Hct MCHC RDW Lymph % (Auto) [place] % (Auto) Eos % (Auto) Lymph # [place] # Lymph # (Auto) [place] # (Auto) Eos # (Auto) Seg Neutrophils % Seg Neuts % (Manual) Lymphocytes % (Manual) Seg Neutrophils # Seg Neutrophils # Man Lymphocytes # (Manual) Monocytes % (Manual) Eosinophils % (Manual) Monocytes # (Manual) Eosinophils # (Manual) D-Dimer Heparin Anti-Xa Level ABG pH POC ABG pCO2 POC ABG pO2 ABG pO2 ABG HCO3 ABG O2 Saturation ABG Base Excess ABG Hemoglobin ABG Oxyhemoglobin VBG pH ABG Sodium ABG Potassium ABG Glucose Oxyhemoglobin Sodium 146 H D Potassium Chloride Carbon Dioxide 20 L BUN 99 H Creatinine 1.9 H Glucose 121 H POC Glucose 127 H 138 H Lactic Acid Calcium 8.2 L Ferritin AST Alkaline Phosphatase Magnesium Lactate Dehydrogenase Total Creatine Kinase CK-MB (CK-2) C-Reactive Protein Total Protein Albumin Troponin T HDL Cholesterol Arterial Blood Glucose Urine WBC (Auto) Urine Creatinine Urine Total Protein Phenytoin Coronavirus (PCR) Crossmatch 06/10/20 06/10/20 06/10/20 14:44 17:31 23:22 WBC RBC Hgb Hct MCHC RDW Lymph % (Auto) [place] % (Auto) Eos % (Auto) Lymph # [place] # Lymph # (Auto) [place] # (Auto) Eos # (Auto) Seg Neutrophils % Seg Neuts % (Manual) Lymphocytes % (Manual) Seg Neutrophils # Seg Neutrophils # Man Lymphocytes # (Manual) Monocytes % (Manual) Eosinophils % (Manual) Monocytes # (Manual) Eosinophils # (Manual) D-Dimer Heparin Anti-Xa Level 0.17 L ABG pH POC ABG pCO2 POC ABG pO2 ABG pO2 ABG HCO3 ABG O2 Saturation ABG Base Excess ABG Hemoglobin ABG Oxyhemoglobin VBG pH ABG Sodium ABG Potassium ABG Glucose Oxyhemoglobin Sodium Potassium Chloride Carbon Dioxide BUN Creatinine Glucose POC Glucose 128 H 114 H Lactic Acid Calcium Ferritin AST Alkaline Phosphatase Magnesium Lactate Dehydrogenase Total Creatine Kinase CK-MB (CK-2) C-Reactive Protein Total Protein Albumin Troponin T HDL Cholesterol Arterial Blood Glucose Urine WBC (Auto) Urine Creatinine Urine Total Protein Phenytoin Coronavirus (PCR) Crossmatch 06/11/20 06/11/20 06/11/20 00:22 03:45 03:45 WBC 14.6 H RBC 2.77 L Hgb 7.9 L Hct 24.3 L MCHC RDW 16.8 H Lymph % (Auto) 6.6 L [place] % (Auto) 8.5 H Eos % (Auto) Lymph # 1.0 L [place] # 1.2 H Lymph # (Auto) [place] # (Auto) Eos # (Auto) Seg Neutrophils % 82.9 H Seg Neuts % (Manual) Lymphocytes % (Manual) Seg Neutrophils # 12.1 H Seg Neutrophils # Man Lymphocytes # (Manual) Monocytes % (Manual) Eosinophils % (Manual) Monocytes # (Manual) Eosinophils # (Manual) D-Dimer Heparin Anti-Xa Level 0.24 L ABG pH POC ABG pCO2 POC ABG pO2 ABG pO2 ABG HCO3 ABG O2 Saturation ABG Base Excess ABG Hemoglobin ABG Oxyhemoglobin VBG pH ABG Sodium ABG Potassium ABG Glucose Oxyhemoglobin Sodium Potassium Chloride Carbon Dioxide 20 L BUN 88 H Creatinine 1.5 H Glucose 111 H POC Glucose Lactic Acid Calcium 8.2 L Ferritin AST Alkaline Phosphatase Magnesium Lactate Dehydrogenase Total Creatine Kinase CK-MB (CK-2) C-Reactive Protein Total Protein Albumin Troponin T HDL Cholesterol Arterial Blood Glucose Urine WBC (Auto) Urine Creatinine Urine Total Protein Phenytoin Coronavirus (PCR) Crossmatch 06/11/20 06/11/20 06/11/20 06:03 10:22 11:11 WBC RBC Hgb Hct MCHC RDW Lymph % (Auto) [place] % (Auto) Eos % (Auto) Lymph # [place] # Lymph # (Auto) [place] # (Auto) Eos # (Auto) Seg Neutrophils % Seg Neuts % (Manual) Lymphocytes % (Manual) Seg Neutrophils # Seg Neutrophils # Man Lymphocytes # (Manual) Monocytes % (Manual) Eosinophils % (Manual) Monocytes # (Manual) Eosinophils # (Manual) D-Dimer Heparin Anti-Xa Level 0.26 L ABG pH POC ABG pCO2 POC ABG pO2 ABG pO2 ABG HCO3 ABG O2 Saturation ABG Base Excess ABG Hemoglobin 9.6 L ABG Oxyhemoglobin VBG pH ABG Sodium ABG Potassium ABG Glucose Oxyhemoglobin Sodium Potassium Chloride Carbon Dioxide BUN Creatinine Glucose POC Glucose 114 H Lactic Acid Calcium Ferritin AST Alkaline Phosphatase Magnesium Lactate Dehydrogenase Total Creatine Kinase CK-MB (CK-2) C-Reactive Protein Total Protein Albumin Troponin T HDL Cholesterol Arterial Blood Glucose Urine WBC (Auto) Urine Creatinine Urine Total Protein Phenytoin Coronavirus (PCR) Crossmatch 06/11/20 06/11/20 06/12/20 12:24 17:24 00:21 WBC RBC Hgb Hct MCHC RDW Lymph % (Auto) [place] % (Auto) Eos % (Auto) Lymph # [place] # Lymph # (Auto) [place] # (Auto) Eos # (Auto) Seg Neutrophils % Seg Neuts % (Manual) Lymphocytes % (Manual) Seg Neutrophils # Seg Neutrophils # Man Lymphocytes # (Manual) Monocytes % (Manual) Eosinophils % (Manual) Monocytes # (Manual) Eosinophils # (Manual) D-Dimer Heparin Anti-Xa Level ABG pH POC ABG pCO2 POC ABG pO2 ABG pO2 ABG HCO3 ABG O2 Saturation ABG Base Excess ABG Hemoglobin ABG Oxyhemoglobin VBG pH ABG Sodium ABG Potassium ABG Glucose Oxyhemoglobin Sodium Potassium Chloride Carbon Dioxide BUN Creatinine Glucose POC Glucose 119 H 126 H 117 H Lactic Acid Calcium Ferritin AST Alkaline Phosphatase Magnesium Lactate Dehydrogenase Total Creatine Kinase CK-MB (CK-2) C-Reactive Protein Total Protein Albumin Troponin T HDL Cholesterol Arterial Blood Glucose Urine WBC (Auto) Urine Creatinine Urine Total Protein Phenytoin Coronavirus (PCR) Crossmatch 06/12/20 06/12/20 06/12/20 02:46 02:46 05:46 WBC 13.2 H RBC 2.83 L Hgb 8.3 L Hct 24.3 L MCHC RDW 16.6 H Lymph % (Auto) 6.2 L [place] % (Auto) 9.5 H Eos % (Auto) Lymph # 0.8 L [place] # 1.3 H Lymph # (Auto) [place] # (Auto) Eos # (Auto) Seg Neutrophils % 81.9 H Seg Neuts % (Manual) Lymphocytes % (Manual) Seg Neutrophils # 10.9 H Seg Neutrophils # Man Lymphocytes # (Manual) Monocytes % (Manual) Eosinophils % (Manual) Monocytes # (Manual) Eosinophils # (Manual) D-Dimer Heparin Anti-Xa Level ABG pH POC ABG pCO2 POC ABG pO2 ABG pO2 ABG HCO3 ABG O2 Saturation ABG Base Excess ABG Hemoglobin ABG Oxyhemoglobin VBG pH ABG Sodium ABG Potassium ABG Glucose Oxyhemoglobin Sodium Potassium 3.5 L Chloride Carbon Dioxide BUN 77 H Creatinine 1.3 H Glucose POC Glucose 132 H Lactic Acid Calcium 8.3 L Ferritin AST Alkaline Phosphatase Magnesium Lactate Dehydrogenase Total Creatine Kinase CK-MB (CK-2) C-Reactive Protein Total Protein Albumin Troponin T HDL Cholesterol Arterial Blood Glucose Urine WBC (Auto) Urine Creatinine Urine Total Protein Phenytoin Coronavirus (PCR) Crossmatch 06/12/20 06/12/20 06/12/20 09:20 12:16 17:48 WBC RBC Hgb Hct MCHC RDW Lymph % (Auto) [place] % (Auto) Eos % (Auto) Lymph # [place] # Lymph # (Auto) [place] # (Auto) Eos # (Auto) Seg Neutrophils % Seg Neuts % (Manual) Lymphocytes % (Manual) Seg Neutrophils # Seg Neutrophils # Man Lymphocytes # (Manual) Monocytes % (Manual) Eosinophils % (Manual) Monocytes # (Manual) Eosinophils # (Manual) D-Dimer Heparin Anti-Xa Level ABG pH POC ABG pCO2 POC ABG pO2 ABG pO2 91.1 H ABG HCO3 ABG O2 Saturation ABG Base Excess ABG Hemoglobin ABG Oxyhemoglobin VBG pH ABG Sodium ABG Potassium ABG Glucose Oxyhemoglobin 94.8 L Sodium Potassium Chloride Carbon Dioxide BUN Creatinine Glucose POC Glucose 167 H 182 H Lactic Acid Calcium Ferritin AST Alkaline Phosphatase Magnesium Lactate Dehydrogenase Total Creatine Kinase CK-MB (CK-2) C-Reactive Protein Total Protein Albumin Troponin T HDL Cholesterol Arterial Blood Glucose Urine WBC (Auto) Urine Creatinine Urine Total Protein Phenytoin Coronavirus (PCR) Crossmatch 06/13/20 06/13/20 06/13/20 00:08 05:37 09:09 WBC RBC Hgb Hct MCHC RDW Lymph % (Auto) [place] % (Auto) Eos % (Auto) Lymph # [place] # Lymph # (Auto) [place] # (Auto) Eos # (Auto) Seg Neutrophils % Seg Neuts % (Manual) Lymphocytes % (Manual) Seg Neutrophils # Seg Neutrophils # Man Lymphocytes # (Manual) Monocytes % (Manual) Eosinophils % (Manual) Monocytes # (Manual) Eosinophils # (Manual) D-Dimer Heparin Anti-Xa Level 0.86 H ABG pH POC ABG pCO2 POC ABG pO2 ABG pO2 ABG HCO3 ABG O2 Saturation ABG Base Excess ABG Hemoglobin ABG Oxyhemoglobin VBG pH ABG Sodium ABG Potassium ABG Glucose Oxyhemoglobin Sodium Potassium Chloride Carbon Dioxide BUN Creatinine Glucose POC Glucose 142 H 119 H Lactic Acid Calcium Ferritin AST Alkaline Phosphatase Magnesium Lactate Dehydrogenase Total Creatine Kinase CK-MB (CK-2) C-Reactive Protein Total Protein Albumin Troponin T HDL Cholesterol Arterial Blood Glucose Urine WBC (Auto) Urine Creatinine Urine Total Protein Phenytoin Coronavirus (PCR) Crossmatch 06/13/20 06/13/20 06/13/20 12:28 17:55 21:17 WBC RBC Hgb Hct MCHC RDW Lymph % (Auto) [place] % (Auto) Eos % (Auto) Lymph # [place] # Lymph # (Auto) [place] # (Auto) Eos # (Auto) Seg Neutrophils % Seg Neuts % (Manual) Lymphocytes % (Manual) Seg Neutrophils # Seg Neutrophils # Man Lymphocytes # (Manual) Monocytes % (Manual) Eosinophils % (Manual) Monocytes # (Manual) Eosinophils # (Manual) D-Dimer Heparin Anti-Xa Level ABG pH POC ABG pCO2 POC ABG pO2 ABG pO2 ABG HCO3 ABG O2 Saturation ABG Base Excess ABG Hemoglobin ABG Oxyhemoglobin VBG pH ABG Sodium ABG Potassium ABG Glucose Oxyhemoglobin Sodium Potassium Chloride Carbon Dioxide BUN 61 H Creatinine Glucose 131 H POC Glucose 165 H 174 H Lactic Acid Calcium Ferritin AST Alkaline Phosphatase Magnesium Lactate Dehydrogenase Total Creatine Kinase CK-MB (CK-2) C-Reactive Protein Total Protein Albumin Troponin T HDL Cholesterol Arterial Blood Glucose Urine WBC (Auto) Urine Creatinine Urine Total Protein Phenytoin Coronavirus (PCR) Crossmatch 06/13/20 06/13/20 06/14/20 21:17 23:50 05:34 WBC RBC Hgb Hct MCHC RDW Lymph % (Auto) [place] % (Auto) Eos % (Auto) Lymph # [place] # Lymph # (Auto) [place] # (Auto) Eos # (Auto) Seg Neutrophils % Seg Neuts % (Manual) Lymphocytes % (Manual) Seg Neutrophils # Seg Neutrophils # Man Lymphocytes # (Manual) Monocytes % (Manual) Eosinophils % (Manual) Monocytes # (Manual) Eosinophils # (Manual) D-Dimer Heparin Anti-Xa Level 0.72 H ABG pH POC ABG pCO2 POC ABG pO2 ABG pO2 ABG HCO3 ABG O2 Saturation ABG Base Excess ABG Hemoglobin ABG Oxyhemoglobin VBG pH ABG Sodium ABG Potassium ABG Glucose Oxyhemoglobin Sodium 146 H Potassium Chloride 107.6 H Carbon Dioxide BUN 61 H Creatinine 1.3 H Glucose 135 H POC Glucose 146 H Lactic Acid Calcium Ferritin AST Alkaline Phosphatase Magnesium Lactate Dehydrogenase Total Creatine Kinase CK-MB (CK-2) C-Reactive Protein Total Protein Albumin Troponin T HDL Cholesterol Arterial Blood Glucose Urine WBC (Auto) Urine Creatinine Urine Total Protein Phenytoin Coronavirus (PCR) Crossmatch 06/14/20 06/14/20 06/14/20 06:11 09:28 11:30 WBC RBC Hgb Hct MCHC RDW Lymph % (Auto) [place] % (Auto) Eos % (Auto) Lymph # [place] # Lymph # (Auto) [place] # (Auto) Eos # (Auto) Seg Neutrophils % Seg Neuts % (Manual) Lymphocytes % (Manual) Seg Neutrophils # Seg Neutrophils # Man Lymphocytes # (Manual) Monocytes % (Manual) Eosinophils % (Manual) Monocytes # (Manual) Eosinophils # (Manual) D-Dimer Heparin Anti-Xa Level 0.90 H ABG pH POC ABG pCO2 POC ABG pO2 ABG pO2 ABG HCO3 ABG O2 Saturation ABG Base Excess ABG Hemoglobin ABG Oxyhemoglobin VBG pH ABG Sodium ABG Potassium ABG Glucose Oxyhemoglobin Sodium Potassium Chloride Carbon Dioxide BUN Creatinine Glucose POC Glucose 141 H 186 H Lactic Acid Calcium Ferritin AST Alkaline Phosphatase Magnesium Lactate Dehydrogenase Total Creatine Kinase CK-MB (CK-2) C-Reactive Protein Total Protein Albumin Troponin T HDL Cholesterol Arterial Blood Glucose Urine WBC (Auto) Urine Creatinine Urine Total Protein Phenytoin Coronavirus (PCR) Crossmatch 06/14/20 06/14/20 06/14/20 16:07 18:16 23:51 WBC RBC Hgb Hct MCHC RDW Lymph % (Auto) [place] % (Auto) Eos % (Auto) Lymph # [place] # Lymph # (Auto) [place] # (Auto) Eos # (Auto) Seg Neutrophils % Seg Neuts % (Manual) Lymphocytes % (Manual) Seg Neutrophils # Seg Neutrophils # Man Lymphocytes # (Manual) Monocytes % (Manual) Eosinophils % (Manual) Monocytes # (Manual) Eosinophils # (Manual) D-Dimer Heparin Anti-Xa Level 0.82 H ABG pH POC ABG pCO2 POC ABG pO2 ABG pO2 ABG HCO3 ABG O2 Saturation ABG Base Excess ABG Hemoglobin ABG Oxyhemoglobin VBG pH ABG Sodium ABG Potassium ABG Glucose Oxyhemoglobin Sodium Potassium Chloride Carbon Dioxide BUN Creatinine Glucose POC Glucose 106 H 154 H Lactic Acid Calcium Ferritin AST Alkaline Phosphatase Magnesium Lactate Dehydrogenase Total Creatine Kinase CK-MB (CK-2) C-Reactive Protein Total Protein Albumin Troponin T HDL Cholesterol Arterial Blood Glucose Urine WBC (Auto) Urine Creatinine Urine Total Protein Phenytoin Coronavirus (PCR) Crossmatch 06/15/20 06/15/20 06/15/20 04:24 04:24 05:59 WBC RBC 2.75 L Hgb 7.9 L Hct 24.0 L MCHC RDW 16.4 H Lymph % (Auto) 12.9 L [place] % (Auto) 8.7 H Eos % (Auto) 4.6 H Lymph # 1.1 L [place] # Lymph # (Auto) [place] # (Auto) Eos # (Auto) Seg Neutrophils % 73.2 H Seg Neuts % (Manual) Lymphocytes % (Manual) Seg Neutrophils # Seg Neutrophils # Man Lymphocytes # (Manual) Monocytes % (Manual) Eosinophils % (Manual) Monocytes # (Manual) Eosinophils # (Manual) D-Dimer Heparin Anti-Xa Level ABG pH POC ABG pCO2 POC ABG pO2 ABG pO2 ABG HCO3 ABG O2 Saturation ABG Base Excess ABG Hemoglobin ABG Oxyhemoglobin VBG pH ABG Sodium ABG Potassium ABG Glucose Oxyhemoglobin Sodium Potassium 3.4 L Chloride Carbon Dioxide BUN 55 H Creatinine 1.3 H Glucose 142 H POC Glucose 131 H Lactic Acid Calcium Ferritin AST Alkaline Phosphatase Magnesium Lactate Dehydrogenase Total Creatine Kinase CK-MB (CK-2) C-Reactive Protein Total Protein Albumin Troponin T HDL Cholesterol Arterial Blood Glucose Urine WBC (Auto) Urine Creatinine Urine Total Protein Phenytoin Coronavirus (PCR) Crossmatch 06/15/20 06/15/20 06/16/20 12:33 17:07 00:22 WBC RBC Hgb Hct MCHC RDW Lymph % (Auto) [place] % (Auto) Eos % (Auto) Lymph # [place] # Lymph # (Auto) [place] # (Auto) Eos # (Auto) Seg Neutrophils % Seg Neuts % (Manual) Lymphocytes % (Manual) Seg Neutrophils # Seg Neutrophils # Man Lymphocytes # (Manual) Monocytes % (Manual) Eosinophils % (Manual) Monocytes # (Manual) Eosinophils # (Manual) D-Dimer Heparin Anti-Xa Level 0.21 L ABG pH POC ABG pCO2 POC ABG pO2 ABG pO2 ABG HCO3 ABG O2 Saturation ABG Base Excess ABG Hemoglobin ABG Oxyhemoglobin VBG pH ABG Sodium ABG Potassium ABG Glucose Oxyhemoglobin Sodium Potassium Chloride Carbon Dioxide BUN Creatinine Glucose POC Glucose 180 H 185 H Lactic Acid Calcium Ferritin AST Alkaline Phosphatase Magnesium Lactate Dehydrogenase Total Creatine Kinase CK-MB (CK-2) C-Reactive Protein Total Protein Albumin Troponin T HDL Cholesterol Arterial Blood Glucose Urine WBC (Auto) Urine Creatinine Urine Total Protein Phenytoin Coronavirus (PCR) Crossmatch 06/16/20 06/16/20 06/16/20 01:45 08:06 09:15 WBC RBC Hgb Hct MCHC RDW Lymph % (Auto) [place] % (Auto) Eos % (Auto) Lymph # [place] # Lymph # (Auto) [place] # (Auto) Eos # (Auto) Seg Neutrophils % Seg Neuts % (Manual) Lymphocytes % (Manual) Seg Neutrophils # Seg Neutrophils # Man Lymphocytes # (Manual) Monocytes % (Manual) Eosinophils % (Manual) Monocytes # (Manual) Eosinophils # (Manual) D-Dimer Heparin Anti-Xa Level ABG pH POC ABG pCO2 POC ABG pO2 ABG pO2 ABG HCO3 ABG O2 Saturation ABG Base Excess ABG Hemoglobin ABG Oxyhemoglobin VBG pH ABG Sodium ABG Potassium ABG Glucose Oxyhemoglobin Sodium Potassium Chloride Carbon Dioxide BUN 49 H Creatinine Glucose 154 H POC Glucose 140 H 171 H Lactic Acid Calcium Ferritin AST Alkaline Phosphatase Magnesium Lactate Dehydrogenase Total Creatine Kinase CK-MB (CK-2) C-Reactive Protein Total Protein Albumin Troponin T HDL Cholesterol Arterial Blood Glucose Urine WBC (Auto) Urine Creatinine Urine Total Protein Phenytoin Coronavirus (PCR) Crossmatch 06/16/20 06/16/20 06/16/20 10:46 12:33 17:54 WBC RBC Hgb Hct MCHC RDW Lymph % (Auto) [place] % (Auto) Eos % (Auto) Lymph # [place] # Lymph # (Auto) [place] # (Auto) Eos # (Auto) Seg Neutrophils % Seg Neuts % (Manual) Lymphocytes % (Manual) Seg Neutrophils # Seg Neutrophils # Man Lymphocytes # (Manual) Monocytes % (Manual) Eosinophils % (Manual) Monocytes # (Manual) Eosinophils # (Manual) D-Dimer Heparin Anti-Xa Level 0.12 L ABG pH POC ABG pCO2 POC ABG pO2 ABG pO2 ABG HCO3 ABG O2 Saturation ABG Base Excess ABG Hemoglobin ABG Oxyhemoglobin VBG pH ABG Sodium ABG Potassium ABG Glucose Oxyhemoglobin Sodium Potassium Chloride Carbon Dioxide BUN Creatinine Glucose POC Glucose 166 H 151 H Lactic Acid Calcium Ferritin AST Alkaline Phosphatase Magnesium Lactate Dehydrogenase Total Creatine Kinase CK-MB (CK-2) C-Reactive Protein Total Protein Albumin Troponin T HDL Cholesterol Arterial Blood Glucose Urine WBC (Auto) Urine Creatinine Urine Total Protein Phenytoin Coronavirus (PCR) Crossmatch 06/16/20 06/17/20 06/17/20 18:47 00:00 02:19 WBC RBC Hgb Hct MCHC RDW Lymph % (Auto) [place] % (Auto) Eos % (Auto) Lymph # [place] # Lymph # (Auto) [place] # (Auto) Eos # (Auto) Seg Neutrophils % Seg Neuts % (Manual) Lymphocytes % (Manual) Seg Neutrophils # Seg Neutrophils # Man Lymphocytes # (Manual) Monocytes % (Manual) Eosinophils % (Manual) Monocytes # (Manual) Eosinophils # (Manual) D-Dimer Heparin Anti-Xa Level 0.73 H 0.77 H ABG pH POC ABG pCO2 POC ABG pO2 ABG pO2 ABG HCO3 ABG O2 Saturation ABG Base Excess ABG Hemoglobin ABG Oxyhemoglobin VBG pH ABG Sodium ABG Potassium ABG Glucose Oxyhemoglobin Sodium Potassium Chloride Carbon Dioxide BUN Creatinine Glucose POC Glucose 139 H Lactic Acid Calcium Ferritin AST Alkaline Phosphatase Magnesium Lactate Dehydrogenase Total Creatine Kinase CK-MB (CK-2) C-Reactive Protein Total Protein Albumin Troponin T HDL Cholesterol Arterial Blood Glucose Urine WBC (Auto) Urine Creatinine Urine Total Protein Phenytoin Coronavirus (PCR) Crossmatch 06/17/20 06/17/20 06/17/20 06:07 11:42 16:43 WBC RBC Hgb Hct MCHC RDW Lymph % (Auto) [place] % (Auto) Eos % (Auto) Lymph # [place] # Lymph # (Auto) [place] # (Auto) Eos # (Auto) Seg Neutrophils % Seg Neuts % (Manual) Lymphocytes % (Manual) Seg Neutrophils # Seg Neutrophils # Man Lymphocytes # (Manual) Monocytes % (Manual) Eosinophils % (Manual) Monocytes # (Manual) Eosinophils # (Manual) D-Dimer Heparin Anti-Xa Level 0.73 H ABG pH POC ABG pCO2 POC ABG pO2 ABG pO2 ABG HCO3 ABG O2 Saturation ABG Base Excess ABG Hemoglobin ABG Oxyhemoglobin VBG pH ABG Sodium ABG Potassium ABG Glucose Oxyhemoglobin Sodium Potassium Chloride Carbon Dioxide BUN Creatinine Glucose POC Glucose 169 H 169 H Lactic Acid Calcium Ferritin AST Alkaline Phosphatase Magnesium Lactate Dehydrogenase Total Creatine Kinase CK-MB (CK-2) C-Reactive Protein Total Protein Albumin Troponin T HDL Cholesterol Arterial Blood Glucose Urine WBC (Auto) Urine Creatinine Urine Total Protein Phenytoin Coronavirus (PCR) Crossmatch 06/17/20 06/17/20 06/17/20 18:18 23:08 23:16 WBC RBC Hgb Hct MCHC RDW Lymph % (Auto) [place] % (Auto) Eos % (Auto) Lymph # [place] # Lymph # (Auto) [place] # (Auto) Eos # (Auto) Seg Neutrophils % Seg Neuts % (Manual) Lymphocytes % (Manual) Seg Neutrophils # Seg Neutrophils # Man Lymphocytes # (Manual) Monocytes % (Manual) Eosinophils % (Manual) Monocytes # (Manual) Eosinophils # (Manual) D-Dimer Heparin Anti-Xa Level 0.71 H ABG pH POC ABG pCO2 POC ABG pO2 ABG pO2 ABG HCO3 ABG O2 Saturation ABG Base Excess ABG Hemoglobin ABG Oxyhemoglobin VBG pH ABG Sodium ABG Potassium ABG Glucose Oxyhemoglobin Sodium Potassium Chloride Carbon Dioxide BUN Creatinine Glucose POC Glucose 159 H 134 H Lactic Acid Calcium Ferritin AST Alkaline Phosphatase Magnesium Lactate Dehydrogenase Total Creatine Kinase CK-MB (CK-2) C-Reactive Protein Total Protein Albumin Troponin T HDL Cholesterol Arterial Blood Glucose Urine WBC (Auto) Urine Creatinine Urine Total Protein Phenytoin Coronavirus (PCR) Crossmatch 06/18/20 06/18/20 06/18/20 04:42 05:52 11:50 WBC RBC Hgb Hct MCHC RDW Lymph % (Auto) [place] % (Auto) Eos % (Auto) Lymph # [place] # Lymph # (Auto) [place] # (Auto) Eos # (Auto) Seg Neutrophils % Seg Neuts % (Manual) Lymphocytes % (Manual) Seg Neutrophils # Seg Neutrophils # Man Lymphocytes # (Manual) Monocytes % (Manual) Eosinophils % (Manual) Monocytes # (Manual) Eosinophils # (Manual) D-Dimer Heparin Anti-Xa Level ABG pH POC ABG pCO2 POC ABG pO2 ABG pO2 ABG HCO3 ABG O2 Saturation ABG Base Excess ABG Hemoglobin ABG Oxyhemoglobin VBG pH ABG Sodium ABG Potassium ABG Glucose Oxyhemoglobin Sodium Potassium Chloride Carbon Dioxide BUN 44 H Creatinine Glucose 115 H POC Glucose 171 H 167 H Lactic Acid Calcium Ferritin AST Alkaline Phosphatase Magnesium Lactate Dehydrogenase Total Creatine Kinase CK-MB (CK-2) C-Reactive Protein Total Protein Albumin Troponin T HDL Cholesterol Arterial Blood Glucose Urine WBC (Auto) Urine Creatinine Urine Total Protein Phenytoin Coronavirus (PCR) Crossmatch 06/18/20 06/19/20 06/19/20 23:46 05:48 07:52 WBC RBC Hgb Hct MCHC RDW Lymph % (Auto) [place] % (Auto) Eos % (Auto) Lymph # [place] # Lymph # (Auto) [place] # (Auto) Eos # (Auto) Seg Neutrophils % Seg Neuts % (Manual) Lymphocytes % (Manual) Seg Neutrophils # Seg Neutrophils # Man Lymphocytes # (Manual) Monocytes % (Manual) Eosinophils % (Manual) Monocytes # (Manual) Eosinophils # (Manual) D-Dimer Heparin Anti-Xa Level ABG pH POC ABG pCO2 POC ABG pO2 ABG pO2 ABG HCO3 ABG O2 Saturation ABG Base Excess ABG Hemoglobin ABG Oxyhemoglobin VBG pH ABG Sodium ABG Potassium ABG Glucose Oxyhemoglobin Sodium Potassium Chloride Carbon Dioxide BUN Creatinine Glucose POC Glucose 130 H 207 H 175 H Lactic Acid Calcium Ferritin AST Alkaline Phosphatase Magnesium Lactate Dehydrogenase Total Creatine Kinase CK-MB (CK-2) C-Reactive Protein Total Protein Albumin Troponin T HDL Cholesterol Arterial Blood Glucose Urine WBC (Auto) Urine Creatinine Urine Total Protein Phenytoin Coronavirus (PCR) Crossmatch 06/19/20 06/19/20 06/20/20 11:42 22:54 05:17 WBC RBC Hgb Hct MCHC RDW Lymph % (Auto) [place] % (Auto) Eos % (Auto) Lymph # [place] # Lymph # (Auto) [place] # (Auto) Eos # (Auto) Seg Neutrophils % Seg Neuts % (Manual) Lymphocytes % (Manual) Seg Neutrophils # Seg Neutrophils # Man Lymphocytes # (Manual) Monocytes % (Manual) Eosinophils % (Manual) Monocytes # (Manual) Eosinophils # (Manual) D-Dimer Heparin Anti-Xa Level ABG pH POC ABG pCO2 POC ABG pO2 ABG pO2 ABG HCO3 ABG O2 Saturation ABG Base Excess ABG Hemoglobin ABG Oxyhemoglobin VBG pH ABG Sodium ABG Potassium ABG Glucose Oxyhemoglobin Sodium Potassium Chloride Carbon Dioxide BUN Creatinine Glucose POC Glucose 166 H 135 H 218 H Lactic Acid Calcium Ferritin AST Alkaline Phosphatase Magnesium Lactate Dehydrogenase Total Creatine Kinase CK-MB (CK-2) C-Reactive Protein Total Protein Albumin Troponin T HDL Cholesterol Arterial Blood Glucose Urine WBC (Auto) Urine Creatinine Urine Total Protein Phenytoin Coronavirus (PCR) Crossmatch 06/20/20 06/20/20 06/20/20 12:04 16:25 16:35 WBC RBC Hgb Hct MCHC RDW Lymph % (Auto) [place] % (Auto) Eos % (Auto) Lymph # [place] # Lymph # (Auto) [place] # (Auto) Eos # (Auto) Seg Neutrophils % Seg Neuts % (Manual) Lymphocytes % (Manual) Seg Neutrophils # Seg Neutrophils # Man Lymphocytes # (Manual) Monocytes % (Manual) Eosinophils % (Manual) Monocytes # (Manual) Eosinophils # (Manual) D-Dimer Heparin Anti-Xa Level ABG pH POC ABG pCO2 POC ABG pO2 ABG pO2 59.6 L ABG HCO3 28.7 H ABG O2 Saturation 93.5 L ABG Base Excess 3.4 H ABG Hemoglobin 7.2 L ABG Oxyhemoglobin VBG pH ABG Sodium ABG Potassium ABG Glucose Oxyhemoglobin 91.3 L Sodium Potassium Chloride Carbon Dioxide BUN Creatinine Glucose POC Glucose 194 H 137 H Lactic Acid Calcium Ferritin AST Alkaline Phosphatase Magnesium Lactate Dehydrogenase Total Creatine Kinase CK-MB (CK-2) C-Reactive Protein Total Protein Albumin Troponin T HDL Cholesterol Arterial Blood Glucose Urine WBC (Auto) Urine Creatinine Urine Total Protein Phenytoin Coronavirus (PCR) Crossmatch 06/20/20 06/21/20 06/21/20 23:59 06:25 12:01 WBC RBC Hgb Hct MCHC RDW Lymph % (Auto) [place] % (Auto) Eos % (Auto) Lymph # [place] # Lymph # (Auto) [place] # (Auto) Eos # (Auto) Seg Neutrophils % Seg Neuts % (Manual) Lymphocytes % (Manual) Seg Neutrophils # Seg Neutrophils # Man Lymphocytes # (Manual) Monocytes % (Manual) Eosinophils % (Manual) Monocytes # (Manual) Eosinophils # (Manual) D-Dimer Heparin Anti-Xa Level ABG pH POC ABG pCO2 POC ABG pO2 ABG pO2 ABG HCO3 ABG O2 Saturation ABG Base Excess ABG Hemoglobin ABG Oxyhemoglobin VBG pH ABG Sodium ABG Potassium ABG Glucose Oxyhemoglobin Sodium Potassium Chloride Carbon Dioxide BUN Creatinine Glucose POC Glucose 156 H 177 H 195 H Lactic Acid Calcium Ferritin AST Alkaline Phosphatase Magnesium Lactate Dehydrogenase Total Creatine Kinase CK-MB (CK-2) C-Reactive Protein Total Protein Albumin Troponin T HDL Cholesterol Arterial Blood Glucose Urine WBC (Auto) Urine Creatinine Urine Total Protein Phenytoin Coronavirus (PCR) Crossmatch 06/21/20 06/21/20 06/22/20 17:04 21:51 05:06 WBC RBC Hgb Hct MCHC RDW Lymph % (Auto) [place] % (Auto) Eos % (Auto) Lymph # [place] # Lymph # (Auto) [place] # (Auto) Eos # (Auto) Seg Neutrophils % Seg Neuts % (Manual) Lymphocytes % (Manual) Seg Neutrophils # Seg Neutrophils # Man Lymphocytes # (Manual) Monocytes % (Manual) Eosinophils % (Manual) Monocytes # (Manual) Eosinophils # (Manual) D-Dimer Heparin Anti-Xa Level ABG pH POC ABG pCO2 POC ABG pO2 ABG pO2 ABG HCO3 ABG O2 Saturation ABG Base Excess ABG Hemoglobin ABG Oxyhemoglobin VBG pH ABG Sodium ABG Potassium ABG Glucose Oxyhemoglobin Sodium Potassium Chloride Carbon Dioxide BUN Creatinine Glucose POC Glucose 156 H 154 H 167 H Lactic Acid Calcium Ferritin AST Alkaline Phosphatase Magnesium Lactate Dehydrogenase Total Creatine Kinase CK-MB (CK-2) C-Reactive Protein Total Protein Albumin Troponin T HDL Cholesterol Arterial Blood Glucose Urine WBC (Auto) Urine Creatinine Urine Total Protein Phenytoin Coronavirus (PCR) Crossmatch 06/22/20 06/22/20 06/22/20 11:20 15:27 16:58 WBC RBC Hgb Hct MCHC RDW Lymph % (Auto) [place] % (Auto) Eos % (Auto) Lymph # [place] # Lymph # (Auto) [place] # (Auto) Eos # (Auto) Seg Neutrophils % Seg Neuts % (Manual) Lymphocytes % (Manual) Seg Neutrophils # Seg Neutrophils # Man Lymphocytes # (Manual) Monocytes % (Manual) Eosinophils % (Manual) Monocytes # (Manual) Eosinophils # (Manual) D-Dimer Heparin Anti-Xa Level ABG pH 7.206 L POC ABG pCO2 79.9 H POC ABG pO2 ABG pO2 ABG HCO3 ABG O2 Saturation ABG Base Excess ABG Hemoglobin 8.3 L ABG Oxyhemoglobin VBG pH ABG Sodium ABG Potassium ABG Glucose Oxyhemoglobin Sodium Potassium Chloride Carbon Dioxide BUN Creatinine Glucose POC Glucose 181 H 230 H Lactic Acid Calcium Ferritin AST Alkaline Phosphatase Magnesium Lactate Dehydrogenase Total Creatine Kinase CK-MB (CK-2) C-Reactive Protein Total Protein Albumin Troponin T HDL Cholesterol Arterial Blood Glucose Urine WBC (Auto) Urine Creatinine Urine Total Protein Phenytoin Coronavirus (PCR) Crossmatch 06/22/20 06/23/20 06/23/20 22:26 05:49 05:49 WBC RBC 2.58 L Hgb 7.4 L Hct 23.2 L MCHC RDW 17.0 H Lymph % (Auto) [place] % (Auto) 11.2 H Eos % (Auto) Lymph # 1.0 L [place] # Lymph # (Auto) [place] # (Auto) Eos # (Auto) Seg Neutrophils % Seg Neuts % (Manual) Lymphocytes % (Manual) Seg Neutrophils # Seg Neutrophils # Man Lymphocytes # (Manual) Monocytes % (Manual) Eosinophils % (Manual) Monocytes # (Manual) Eosinophils # (Manual) D-Dimer Heparin Anti-Xa Level ABG pH POC ABG pCO2 POC ABG pO2 ABG pO2 ABG HCO3 ABG O2 Saturation ABG Base Excess ABG Hemoglobin ABG Oxyhemoglobin VBG pH ABG Sodium ABG Potassium ABG Glucose Oxyhemoglobin Sodium Potassium Chloride Carbon Dioxide BUN 68 H Creatinine 2.4 H Glucose 198 H POC Glucose 195 H Lactic Acid Calcium Ferritin AST Alkaline Phosphatase Magnesium Lactate Dehydrogenase Total Creatine Kinase CK-MB (CK-2) C-Reactive Protein Total Protein Albumin Troponin T HDL Cholesterol Arterial Blood Glucose Urine WBC (Auto) Urine Creatinine Urine Total Protein Phenytoin Coronavirus (PCR) Crossmatch 06/23/20 06/23/20 06/23/20 05:50 12:29 12:34 WBC RBC Hgb Hct MCHC RDW Lymph % (Auto) [place] % (Auto) Eos % (Auto) Lymph # [place] # Lymph # (Auto) [place] # (Auto) Eos # (Auto) Seg Neutrophils % Seg Neuts % (Manual) Lymphocytes % (Manual) Seg Neutrophils # Seg Neutrophils # Man Lymphocytes # (Manual) Monocytes % (Manual) Eosinophils % (Manual) Monocytes # (Manual) Eosinophils # (Manual) D-Dimer Heparin Anti-Xa Level ABG pH POC ABG pCO2 54.7 H POC ABG pO2 68.8 L ABG pO2 ABG HCO3 ABG O2 Saturation ABG Base Excess ABG Hemoglobin 9.8 L ABG Oxyhemoglobin 92.6 L VBG pH ABG Sodium ABG Potassium ABG Glucose Oxyhemoglobin Sodium Potassium Chloride Carbon Dioxide BUN Creatinine Glucose POC Glucose 202 H 218 H Lactic Acid Calcium Ferritin AST Alkaline Phosphatase Magnesium Lactate Dehydrogenase Total Creatine Kinase CK-MB (CK-2) C-Reactive Protein Total Protein Albumin Troponin T HDL Cholesterol Arterial Blood Glucose Urine WBC (Auto) Urine Creatinine Urine Total Protein Phenytoin Coronavirus (PCR) Crossmatch 06/23/20 06/23/20 06/24/20 16:02 22:22 01:06 WBC RBC Hgb Hct MCHC RDW Lymph % (Auto) [place] % (Auto) Eos % (Auto) Lymph # [place] # Lymph # (Auto) [place] # (Auto) Eos # (Auto) Seg Neutrophils % Seg Neuts % (Manual) Lymphocytes % (Manual) Seg Neutrophils # Seg Neutrophils # Man Lymphocytes # (Manual) Monocytes % (Manual) Eosinophils % (Manual) Monocytes # (Manual) Eosinophils # (Manual) D-Dimer Heparin Anti-Xa Level ABG pH POC ABG pCO2 POC ABG pO2 ABG pO2 ABG HCO3 ABG O2 Saturation ABG Base Excess ABG Hemoglobin ABG Oxyhemoglobin VBG pH ABG Sodium ABG Potassium ABG Glucose Oxyhemoglobin Sodium Potassium Chloride Carbon Dioxide BUN Creatinine Glucose POC Glucose 190 H 166 H 171 H Lactic Acid Calcium Ferritin AST Alkaline Phosphatase Magnesium Lactate Dehydrogenase Total Creatine Kinase CK-MB (CK-2) C-Reactive Protein Total Protein Albumin Troponin T HDL Cholesterol Arterial Blood Glucose Urine WBC (Auto) Urine Creatinine Urine Total Protein Phenytoin Coronavirus (PCR) Crossmatch 06/24/20 06/24/20 06/24/20 04:48 05:35 11:48 WBC RBC Hgb Hct MCHC RDW Lymph % (Auto) [place] % (Auto) Eos % (Auto) Lymph # [place] # Lymph # (Auto) [place] # (Auto) Eos # (Auto) Seg Neutrophils % Seg Neuts % (Manual) Lymphocytes % (Manual) Seg Neutrophils # Seg Neutrophils # Man Lymphocytes # (Manual) Monocytes % (Manual) Eosinophils % (Manual) Monocytes # (Manual) Eosinophils # (Manual) D-Dimer Heparin Anti-Xa Level ABG pH POC ABG pCO2 POC ABG pO2 ABG pO2 ABG HCO3 ABG O2 Saturation ABG Base Excess ABG Hemoglobin ABG Oxyhemoglobin VBG pH ABG Sodium ABG Potassium ABG Glucose Oxyhemoglobin Sodium Potassium Chloride Carbon Dioxide BUN 75 H Creatinine 2.6 H Glucose 179 H POC Glucose 172 H 153 H Lactic Acid Calcium Ferritin AST Alkaline Phosphatase Magnesium Lactate Dehydrogenase Total Creatine Kinase CK-MB (CK-2) C-Reactive Protein Total Protein Albumin Troponin T HDL Cholesterol Arterial Blood Glucose Urine WBC (Auto) Urine Creatinine Urine Total Protein Phenytoin Coronavirus (PCR) Crossmatch 06/24/20 06/24/20 06/25/20 16:38 21:52 12:00 WBC RBC Hgb Hct MCHC RDW Lymph % (Auto) [place] % (Auto) Eos % (Auto) Lymph # [place] # Lymph # (Auto) [place] # (Auto) Eos # (Auto) Seg Neutrophils % Seg Neuts % (Manual) Lymphocytes % (Manual) Seg Neutrophils # Seg Neutrophils # Man Lymphocytes # (Manual) Monocytes % (Manual) Eosinophils % (Manual) Monocytes # (Manual) Eosinophils # (Manual) D-Dimer Heparin Anti-Xa Level ABG pH POC ABG pCO2 POC ABG pO2 ABG pO2 ABG HCO3 ABG O2 Saturation ABG Base Excess ABG Hemoglobin ABG Oxyhemoglobin VBG pH ABG Sodium ABG Potassium ABG Glucose Oxyhemoglobin Sodium Potassium Chloride Carbon Dioxide BUN Creatinine Glucose POC Glucose 123 H 115 H 203 H Lactic Acid Calcium Ferritin AST Alkaline Phosphatase Magnesium Lactate Dehydrogenase Total Creatine Kinase CK-MB (CK-2) C-Reactive Protein Total Protein Albumin Troponin T HDL Cholesterol Arterial Blood Glucose Urine WBC (Auto) Urine Creatinine Urine Total Protein Phenytoin Coronavirus (PCR) Crossmatch 06/25/20 06/25/20 06/25/20 15:43 16:37 23:02 WBC RBC Hgb Hct MCHC RDW Lymph % (Auto) [place] % (Auto) Eos % (Auto) Lymph # [place] # Lymph # (Auto) [place] # (Auto) Eos # (Auto) Seg Neutrophils % Seg Neuts % (Manual) Lymphocytes % (Manual) Seg Neutrophils # Seg Neutrophils # Man Lymphocytes # (Manual) Monocytes % (Manual) Eosinophils % (Manual) Monocytes # (Manual) Eosinophils # (Manual) D-Dimer Heparin Anti-Xa Level ABG pH POC ABG pCO2 POC ABG pO2 ABG pO2 ABG HCO3 ABG O2 Saturation ABG Base Excess ABG Hemoglobin ABG Oxyhemoglobin VBG pH ABG Sodium ABG Potassium ABG Glucose Oxyhemoglobin Sodium Potassium Chloride Carbon Dioxide BUN 71 H Creatinine 1.8 H Glucose 170 H POC Glucose 191 H 126 H Lactic Acid Calcium 8.2 L Ferritin AST Alkaline Phosphatase Magnesium Lactate Dehydrogenase Total Creatine Kinase CK-MB (CK-2) C-Reactive Protein Total Protein Albumin Troponin T HDL Cholesterol Arterial Blood Glucose Urine WBC (Auto) Urine Creatinine Urine Total Protein Phenytoin Coronavirus (PCR) Crossmatch 06/26/20 06/26/20 06/26/20 06:34 06:34 09:27 WBC RBC 2.41 L Hgb 6.9 L Hct 21.5 L MCHC RDW 16.7 H Lymph % (Auto) 10.9 L [place] % (Auto) 9.6 H Eos % (Auto) Lymph # 0.7 L [place] # Lymph # (Auto) [place] # (Auto) Eos # (Auto) Seg Neutrophils % 75.4 H Seg Neuts % (Manual) Lymphocytes % (Manual) Seg Neutrophils # Seg Neutrophils # Man Lymphocytes # (Manual) Monocytes % (Manual) Eosinophils % (Manual) Monocytes # (Manual) Eosinophils # (Manual) D-Dimer Heparin Anti-Xa Level ABG pH POC ABG pCO2 POC ABG pO2 ABG pO2 ABG HCO3 ABG O2 Saturation ABG Base Excess ABG Hemoglobin ABG Oxyhemoglobin VBG pH ABG Sodium ABG Potassium ABG Glucose Oxyhemoglobin Sodium Potassium Chloride Carbon Dioxide BUN 77 H Creatinine 1.9 H Glucose 190 H POC Glucose Lactic Acid Calcium Ferritin AST Alkaline Phosphatase Magnesium Lactate Dehydrogenase Total Creatine Kinase CK-MB (CK-2) C-Reactive Protein Total Protein Albumin Troponin T HDL Cholesterol Arterial Blood Glucose Urine WBC (Auto) Urine Creatinine Urine Total Protein Phenytoin Coronavirus (PCR) Crossmatch See Detail 06/26/20 06/26/20 06/26/20 12:15 16:28 17:28 WBC RBC Hgb Hct MCHC RDW Lymph % (Auto) [place] % (Auto) Eos % (Auto) Lymph # [place] # Lymph # (Auto) [place] # (Auto) Eos # (Auto) Seg Neutrophils % Seg Neuts % (Manual) Lymphocytes % (Manual) Seg Neutrophils # Seg Neutrophils # Man Lymphocytes # (Manual) Monocytes % (Manual) Eosinophils % (Manual) Monocytes # (Manual) Eosinophils # (Manual) D-Dimer Heparin Anti-Xa Level ABG pH POC ABG pCO2 POC ABG pO2 ABG pO2 ABG HCO3 ABG O2 Saturation ABG Base Excess ABG Hemoglobin ABG Oxyhemoglobin VBG pH ABG Sodium ABG Potassium ABG Glucose Oxyhemoglobin Sodium Potassium Chloride Carbon Dioxide BUN Creatinine Glucose POC Glucose 187 H 149 H 189 H Lactic Acid Calcium Ferritin AST Alkaline Phosphatase Magnesium Lactate Dehydrogenase Total Creatine Kinase CK-MB (CK-2) C-Reactive Protein Total Protein Albumin Troponin T HDL Cholesterol Arterial Blood Glucose Urine WBC (Auto) Urine Creatinine Urine Total Protein Phenytoin Coronavirus (PCR) Crossmatch 06/26/20 06/26/20 06/26/20 18:30 18:30 18:30 WBC RBC 2.87 L Hgb 8.2 L Hct 25.9 L MCHC RDW 17.8 H Lymph % (Auto) [place] % (Auto) Eos % (Auto) Lymph # [place] # Lymph # (Auto) [place] # (Auto) Eos # (Auto) Seg Neutrophils % Seg Neuts % (Manual) 83.0 H Lymphocytes % (Manual) 8.0 L Seg Neutrophils # Seg Neutrophils # Man Lymphocytes # (Manual) 0.6 L Monocytes % (Manual) Eosinophils % (Manual) Monocytes # (Manual) Eosinophils # (Manual) D-Dimer Heparin Anti-Xa Level ABG pH POC ABG pCO2 POC ABG pO2 ABG pO2 ABG HCO3 ABG O2 Saturation ABG Base Excess ABG Hemoglobin ABG Oxyhemoglobin VBG pH ABG Sodium ABG Potassium ABG Glucose Oxyhemoglobin Sodium Potassium Chloride Carbon Dioxide BUN 80 H Creatinine 2.1 H Glucose 260 H POC Glucose Lactic Acid 4.30 H* Calcium 8.3 L Ferritin AST Alkaline Phosphatase Magnesium Lactate Dehydrogenase Total Creatine Kinase CK-MB (CK-2) C-Reactive Protein Total Protein Albumin Troponin T HDL Cholesterol Arterial Blood Glucose Urine WBC (Auto) Urine Creatinine Urine Total Protein Phenytoin Coronavirus (PCR) Crossmatch 06/26/20 06/27/20 06/27/20 18:50 01:00 04:29 WBC RBC Hgb Hct MCHC RDW Lymph % (Auto) [place] % (Auto) Eos % (Auto) Lymph # [place] # Lymph # (Auto) [place] # (Auto) Eos # (Auto) Seg Neutrophils % Seg Neuts % (Manual) Lymphocytes % (Manual) Seg Neutrophils # Seg Neutrophils # Man Lymphocytes # (Manual) Monocytes % (Manual) Eosinophils % (Manual) Monocytes # (Manual) Eosinophils # (Manual) D-Dimer Heparin Anti-Xa Level ABG pH 7.296 L POC ABG pCO2 POC ABG pO2 ABG pO2 116.5 H 200.5 H ABG HCO3 28.4 H ABG O2 Saturation 99.3 H ABG Base Excess 3.7 H ABG Hemoglobin 5.6 L ABG Oxyhemoglobin VBG pH ABG Sodium ABG Potassium ABG Glucose Oxyhemoglobin Sodium Potassium Chloride Carbon Dioxide BUN Creatinine Glucose POC Glucose 123 H Lactic Acid Calcium Ferritin AST Alkaline Phosphatase Magnesium Lactate Dehydrogenase Total Creatine Kinase CK-MB (CK-2) C-Reactive Protein Total Protein Albumin Troponin T HDL Cholesterol Arterial Blood Glucose Urine WBC (Auto) Urine Creatinine Urine Total Protein Phenytoin Coronavirus (PCR) Crossmatch 06/27/20 06/27/20 06/27/20 05:00 05:00 05:00 WBC RBC 2.75 L Hgb 7.9 L Hct 24.3 L MCHC RDW 17.1 H Lymph % (Auto) 8.5 L [place] % (Auto) 12.6 H Eos % (Auto) Lymph # 0.7 L [place] # 1.0 H Lymph # (Auto) [place] # (Auto) Eos # (Auto) Seg Neutrophils % 77.5 H Seg Neuts % (Manual) Lymphocytes % (Manual) Seg Neutrophils # Seg Neutrophils # Man Lymphocytes # (Manual) Monocytes % (Manual) Eosinophils % (Manual) Monocytes # (Manual) Eosinophils # (Manual) D-Dimer Heparin Anti-Xa Level ABG pH POC ABG pCO2 POC ABG pO2 ABG pO2 ABG HCO3 ABG O2 Saturation ABG Base Excess ABG Hemoglobin ABG Oxyhemoglobin VBG pH ABG Sodium ABG Potassium ABG Glucose Oxyhemoglobin Sodium Potassium Chloride Carbon Dioxide BUN 80 H Creatinine 2.0 H Glucose 129 H POC Glucose Lactic Acid 0.60 L Calcium 7.9 L Ferritin AST Alkaline Phosphatase Magnesium Lactate Dehydrogenase Total Creatine Kinase CK-MB (CK-2) C-Reactive Protein Total Protein Albumin Troponin T HDL Cholesterol Arterial Blood Glucose Urine WBC (Auto) Urine Creatinine Urine Total Protein Phenytoin Coronavirus (PCR) Crossmatch 06/27/20 06/27/20 06/27/20 05:23 13:46 17:25 WBC RBC Hgb Hct MCHC RDW Lymph % (Auto) [place] % (Auto) Eos % (Auto) Lymph # [place] # Lymph # (Auto) [place] # (Auto) Eos # (Auto) Seg Neutrophils % Seg Neuts % (Manual) Lymphocytes % (Manual) Seg Neutrophils # Seg Neutrophils # Man Lymphocytes # (Manual) Monocytes % (Manual) Eosinophils % (Manual) Monocytes # (Manual) Eosinophils # (Manual) D-Dimer Heparin Anti-Xa Level ABG pH POC ABG pCO2 POC ABG pO2 ABG pO2 ABG HCO3 ABG O2 Saturation ABG Base Excess ABG Hemoglobin ABG Oxyhemoglobin VBG pH ABG Sodium ABG Potassium ABG Glucose Oxyhemoglobin Sodium Potassium Chloride Carbon Dioxide BUN Creatinine Glucose POC Glucose 109 H 158 H 162 H Lactic Acid Calcium Ferritin AST Alkaline Phosphatase Magnesium Lactate Dehydrogenase Total Creatine Kinase CK-MB (CK-2) C-Reactive Protein Total Protein Albumin Troponin T HDL Cholesterol Arterial Blood Glucose Urine WBC (Auto) Urine Creatinine Urine Total Protein Phenytoin Coronavirus (PCR) Crossmatch 06/27/20 06/27/20 06/28/20 18:43 23:46 04:05 WBC RBC Hgb 7.7 L Hct 22.1 L MCHC RDW Lymph % (Auto) [place] % (Auto) Eos % (Auto) Lymph # [place] # Lymph # (Auto) [place] # (Auto) Eos # (Auto) Seg Neutrophils % Seg Neuts % (Manual) Lymphocytes % (Manual) Seg Neutrophils # Seg Neutrophils # Man Lymphocytes # (Manual) Monocytes % (Manual) Eosinophils % (Manual) Monocytes # (Manual) Eosinophils # (Manual) D-Dimer Heparin Anti-Xa Level ABG pH POC ABG pCO2 POC ABG pO2 ABG pO2 102.7 H ABG HCO3 28.7 H ABG O2 Saturation ABG Base Excess 3.7 H ABG Hemoglobin ABG Oxyhemoglobin VBG pH ABG Sodium ABG Potassium ABG Glucose Oxyhemoglobin Sodium Potassium Chloride Carbon Dioxide BUN Creatinine Glucose POC Glucose 142 H Lactic Acid Calcium Ferritin AST Alkaline Phosphatase Magnesium Lactate Dehydrogenase Total Creatine Kinase CK-MB (CK-2) C-Reactive Protein Total Protein Albumin Troponin T HDL Cholesterol Arterial Blood Glucose Urine WBC (Auto) Urine Creatinine Urine Total Protein Phenytoin Coronavirus (PCR) Crossmatch 09/20/20 09/20/20 09/20/20 09:47 09:47 12:02 WBC RBC 2.53 L Hgb 7.4 L Hct 22.2 L MCHC RDW 16.8 H Lymph % (Auto) [place] % (Auto) 13.5 H Eos % (Auto) Lymph # 1.1 L [place] # 1.0 H Lymph # (Auto) [place] # (Auto) Eos # (Auto) Seg Neutrophils % Seg Neuts % (Manual) Lymphocytes % (Manual) Seg Neutrophils # Seg Neutrophils # Man Lymphocytes # (Manual) Monocytes % (Manual) Eosinophils % (Manual) Monocytes # (Manual) Eosinophils # (Manual) D-Dimer Heparin Anti-Xa Level ABG pH POC ABG pCO2 POC ABG pO2 ABG pO2 ABG HCO3 ABG O2 Saturation ABG Base Excess ABG Hemoglobin ABG Oxyhemoglobin VBG pH ABG Sodium ABG Potassium ABG Glucose Oxyhemoglobin Sodium Potassium Chloride Carbon Dioxide BUN 80 H Creatinine 1.5 H Glucose 139 H POC Glucose 169 H Lactic Acid Calcium 7.9 L Ferritin AST Alkaline Phosphatase Magnesium Lactate Dehydrogenase Total Creatine Kinase CK-MB (CK-2) C-Reactive Protein Total Protein 5.0 L Albumin 2.1 L Troponin T HDL Cholesterol Arterial Blood Glucose Urine WBC (Auto) Urine Creatinine Urine Total Protein Phenytoin Coronavirus (PCR) Crossmatch 06/28/20 06/28/20 06/28/20 12:30 12:30 17:24 WBC RBC 2.38 L Hgb 7.3 L Hct 20.9 L MCHC 35 H RDW 16.7 H Lymph % (Auto) [place] % (Auto) Eos % (Auto) Lymph # [place] # Lymph # (Auto) [place] # (Auto) Eos # (Auto) Seg Neutrophils % Seg Neuts % (Manual) Lymphocytes % (Manual) Seg Neutrophils # Seg Neutrophils # Man Lymphocytes # (Manual) Monocytes % (Manual) Eosinophils % (Manual) Monocytes # (Manual) Eosinophils # (Manual) D-Dimer Heparin Anti-Xa Level ABG pH POC ABG pCO2 POC ABG pO2 ABG pO2 ABG HCO3 ABG O2 Saturation ABG Base Excess ABG Hemoglobin ABG Oxyhemoglobin VBG pH ABG Sodium ABG Potassium ABG Glucose Oxyhemoglobin Sodium Potassium Chloride Carbon Dioxide BUN 74 H Creatinine 1.5 H Glucose 143 H POC Glucose 173 H Lactic Acid Calcium 7.5 L Ferritin AST Alkaline Phosphatase Magnesium Lactate Dehydrogenase Total Creatine Kinase CK-MB (CK-2) C-Reactive Protein Total Protein Albumin Troponin T HDL Cholesterol Arterial Blood Glucose Urine WBC (Auto) Urine Creatinine Urine Total Protein Phenytoin Coronavirus (PCR) Crossmatch 06/29/20 06/29/20 06/29/20 00:02 03:54 04:38 WBC RBC 2.55 L Hgb 7.3 L Hct 22.4 L MCHC RDW 16.4 H Lymph % (Auto) 13.3 L [place] % (Auto) 12.5 H Eos % (Auto) Lymph # 1.1 L [place] # 1.0 H Lymph # (Auto) [place] # (Auto) Eos # (Auto) Seg Neutrophils % Seg Neuts % (Manual) Lymphocytes % (Manual) Seg Neutrophils # Seg Neutrophils # Man Lymphocytes # (Manual) Monocytes % (Manual) Eosinophils % (Manual) Monocytes # (Manual) Eosinophils # (Manual) D-Dimer Heparin Anti-Xa Level ABG pH POC ABG pCO2 POC ABG pO2 ABG pO2 ABG HCO3 26.9 H ABG O2 Saturation ABG Base Excess ABG Hemoglobin 6.9 L ABG Oxyhemoglobin VBG pH ABG Sodium ABG Potassium ABG Glucose Oxyhemoglobin Sodium Potassium Chloride Carbon Dioxide BUN Creatinine Glucose POC Glucose 142 H Lactic Acid Calcium Ferritin AST Alkaline Phosphatase Magnesium Lactate Dehydrogenase Total Creatine Kinase CK-MB (CK-2) C-Reactive Protein Total Protein Albumin Troponin T HDL Cholesterol Arterial Blood Glucose Urine WBC (Auto) Urine Creatinine Urine Total Protein Phenytoin Coronavirus (PCR) Crossmatch 06/29/20 06/29/20 06/29/20 04:38 05:38 12:25 WBC RBC Hgb Hct MCHC RDW Lymph % (Auto) [place] % (Auto) Eos % (Auto) Lymph # [place] # Lymph # (Auto) [place] # (Auto) Eos # (Auto) Seg Neutrophils % Seg Neuts % (Manual) Lymphocytes % (Manual) Seg Neutrophils # Seg Neutrophils # Man Lymphocytes # (Manual) Monocytes % (Manual) Eosinophils % (Manual) Monocytes # (Manual) Eosinophils # (Manual) D-Dimer Heparin Anti-Xa Level ABG pH POC ABG pCO2 POC ABG pO2 ABG pO2 ABG HCO3 ABG O2 Saturation ABG Base Excess ABG Hemoglobin ABG Oxyhemoglobin VBG pH ABG Sodium ABG Potassium ABG Glucose Oxyhemoglobin Sodium Potassium Chloride 107.8 H Carbon Dioxide BUN 72 H Creatinine 1.4 H Glucose 127 H POC Glucose 122 H 138 H Lactic Acid Calcium 7.4 L Ferritin AST Alkaline Phosphatase Magnesium Lactate Dehydrogenase Total Creatine Kinase CK-MB (CK-2) C-Reactive Protein Total Protein Albumin Troponin T HDL Cholesterol Arterial Blood Glucose Urine WBC (Auto) Urine Creatinine Urine Total Protein Phenytoin Coronavirus (PCR) Crossmatch 06/29/20 06/29/20 06/29/20 14:45 14:45 14:45 WBC RBC Hgb Hct MCHC RDW Lymph % (Auto) [place] % (Auto) Eos % (Auto) Lymph # [place] # Lymph # (Auto) [place] # (Auto) Eos # (Auto) Seg Neutrophils % Seg Neuts % (Manual) Lymphocytes % (Manual) Seg Neutrophils # Seg Neutrophils # Man Lymphocytes # (Manual) Monocytes % (Manual) Eosinophils % (Manual) Monocytes # (Manual) Eosinophils # (Manual) D-Dimer 2310.15 H Heparin Anti-Xa Level ABG pH POC ABG pCO2 POC ABG pO2 ABG pO2 ABG HCO3 ABG O2 Saturation ABG Base Excess ABG Hemoglobin ABG Oxyhemoglobin VBG pH ABG Sodium ABG Potassium ABG Glucose Oxyhemoglobin Sodium Potassium Chloride Carbon Dioxide BUN Creatinine Glucose POC Glucose Lactic Acid Calcium Ferritin 223.6 H AST Alkaline Phosphatase Magnesium Lactate Dehydrogenase 367 H Total Creatine Kinase CK-MB (CK-2) C-Reactive Protein 3.60 H Total Protein Albumin Troponin T HDL Cholesterol Arterial Blood Glucose Urine WBC (Auto) Urine Creatinine Urine Total Protein Phenytoin Coronavirus (PCR) Crossmatch 06/29/20 06/29/20 06/29/20 18:27 23:35 Unknown WBC RBC Hgb Hct MCHC RDW Lymph % (Auto) [place] % (Auto) Eos % (Auto) Lymph # [place] # Lymph # (Auto) [place] # (Auto) Eos # (Auto) Seg Neutrophils % Seg Neuts % (Manual) Lymphocytes % (Manual) Seg Neutrophils # Seg Neutrophils # Man Lymphocytes # (Manual) Monocytes % (Manual) Eosinophils % (Manual) Monocytes # (Manual) Eosinophils # (Manual) D-Dimer Heparin Anti-Xa Level ABG pH POC ABG pCO2 POC ABG pO2 ABG pO2 ABG HCO3 ABG O2 Saturation ABG Base Excess ABG Hemoglobin ABG Oxyhemoglobin VBG pH ABG Sodium ABG Potassium ABG Glucose Oxyhemoglobin Sodium Potassium Chloride Carbon Dioxide BUN Creatinine Glucose POC Glucose 112 H 140 H Lactic Acid Calcium Ferritin AST Alkaline Phosphatase Magnesium Lactate Dehydrogenase Total Creatine Kinase CK-MB (CK-2) C-Reactive Protein Total Protein Albumin Troponin T HDL Cholesterol Arterial Blood Glucose Urine WBC (Auto) Urine Creatinine Urine Total Protein Phenytoin Coronavirus (PCR) Positive A Crossmatch 06/30/20 06/30/20 06/30/20 04:10 04:10 06:09 WBC RBC 2.44 L Hgb 7.1 L Hct 21.5 L MCHC RDW 16.6 H Lymph % (Auto) 11.0 L [place] % (Auto) 10.8 H Eos % (Auto) Lymph # 0.9 L [place] # 0.9 H Lymph # (Auto) [place] # (Auto) Eos # (Auto) Seg Neutrophils % 73.7 H Seg Neuts % (Manual) Lymphocytes % (Manual) Seg Neutrophils # Seg Neutrophils # Man Lymphocytes # (Manual) Monocytes % (Manual) Eosinophils % (Manual) Monocytes # (Manual) Eosinophils # (Manual) D-Dimer Heparin Anti-Xa Level ABG pH POC ABG pCO2 POC ABG pO2 ABG pO2 ABG HCO3 ABG O2 Saturation ABG Base Excess ABG Hemoglobin ABG Oxyhemoglobin VBG pH ABG Sodium ABG Potassium ABG Glucose Oxyhemoglobin Sodium Potassium Chloride 109.1 H Carbon Dioxide BUN 74 H Creatinine 1.3 H Glucose 191 H POC Glucose 187 H Lactic Acid Calcium 7.8 L Ferritin AST Alkaline Phosphatase Magnesium Lactate Dehydrogenase Total Creatine Kinase CK-MB (CK-2) C-Reactive Protein Total Protein Albumin Troponin T HDL Cholesterol Arterial Blood Glucose Urine WBC (Auto) Urine Creatinine Urine Total Protein Phenytoin Coronavirus (PCR) Crossmatch 06/30/20 06/30/20 06/30/20 12:04 17:43 23:41 WBC RBC Hgb Hct MCHC RDW Lymph % (Auto) [place] % (Auto) Eos % (Auto) Lymph # [place] # Lymph # (Auto) [place] # (Auto) Eos # (Auto) Seg Neutrophils % Seg Neuts % (Manual) Lymphocytes % (Manual) Seg Neutrophils # Seg Neutrophils # Man Lymphocytes # (Manual) Monocytes % (Manual) Eosinophils % (Manual) Monocytes # (Manual) Eosinophils # (Manual) D-Dimer Heparin Anti-Xa Level ABG pH POC ABG pCO2 POC ABG pO2 ABG pO2 ABG HCO3 ABG O2 Saturation ABG Base Excess ABG Hemoglobin ABG Oxyhemoglobin VBG pH ABG Sodium ABG Potassium ABG Glucose Oxyhemoglobin Sodium Potassium Chloride Carbon Dioxide BUN Creatinine Glucose POC Glucose 112 H 177 H 143 H Lactic Acid Calcium Ferritin AST Alkaline Phosphatase Magnesium Lactate Dehydrogenase Total Creatine Kinase CK-MB (CK-2) C-Reactive Protein Total Protein Albumin Troponin T HDL Cholesterol Arterial Blood Glucose Urine WBC (Auto) Urine Creatinine Urine Total Protein Phenytoin Coronavirus (PCR) Crossmatch 07/01/20 07/01/20 07/01/20 05:02 05:52 06:01 WBC 12.6 H RBC 2.95 L Hgb 8.2 L Hct 26.0 L MCHC RDW 16.9 H Lymph % (Auto) [place] % (Auto) Eos % (Auto) Lymph # [place] # Lymph # (Auto) [place] # (Auto) Eos # (Auto) Seg Neutrophils % Seg Neuts % (Manual) Lymphocytes % (Manual) Seg Neutrophils # Seg Neutrophils # Man 8.6 H Lymphocytes # (Manual) Monocytes % (Manual) Eosinophils % (Manual) 5.0 H Monocytes # (Manual) Eosinophils # (Manual) 0.6 H D-Dimer Heparin Anti-Xa Level ABG pH POC ABG pCO2 POC ABG pO2 ABG pO2 ABG HCO3 ABG O2 Saturation ABG Base Excess ABG Hemoglobin 8.2 L ABG Oxyhemoglobin VBG pH ABG Sodium ABG Potassium ABG Glucose Oxyhemoglobin Sodium Potassium Chloride Carbon Dioxide BUN Creatinine Glucose POC Glucose 129 H Lactic Acid Calcium Ferritin AST Alkaline Phosphatase Magnesium Lactate Dehydrogenase Total Creatine Kinase CK-MB (CK-2) C-Reactive Protein Total Protein Albumin Troponin T HDL Cholesterol Arterial Blood Glucose Urine WBC (Auto) Urine Creatinine Urine Total Protein Phenytoin Coronavirus (PCR) Crossmatch 07/01/20 07/01/20 07/01/20 06:01 06:01 06:08 WBC RBC Hgb Hct MCHC RDW Lymph % (Auto) [place] % (Auto) Eos % (Auto) Lymph # [place] # Lymph # (Auto) [place] # (Auto) Eos # (Auto) Seg Neutrophils % Seg Neuts % (Manual) Lymphocytes % (Manual) Seg Neutrophils # Seg Neutrophils # Man Lymphocytes # (Manual) Monocytes % (Manual) Eosinophils % (Manual) Monocytes # (Manual) Eosinophils # (Manual) D-Dimer Heparin Anti-Xa Level ABG pH POC ABG pCO2 POC ABG pO2 ABG pO2 ABG HCO3 ABG O2 Saturation ABG Base Excess ABG Hemoglobin ABG Oxyhemoglobin VBG pH ABG Sodium ABG Potassium ABG Glucose Oxyhemoglobin Sodium 147 H Potassium Chloride 108.0 H Carbon Dioxide BUN 71 H Creatinine 1.3 H Glucose 193 H POC Glucose 192 H Lactic Acid Calcium 8.1 L Ferritin AST Alkaline Phosphatase Magnesium Lactate Dehydrogenase Total Creatine Kinase 300 H CK-MB (CK-2) C-Reactive Protein Total Protein Albumin Troponin T 0.067 H HDL Cholesterol 61 H Arterial Blood Glucose Urine WBC (Auto) Urine Creatinine Urine Total Protein Phenytoin Coronavirus (PCR) Crossmatch 07/01/20 07/01/20 07/02/20 12:23 17:40 00:18 WBC RBC Hgb Hct MCHC RDW Lymph % (Auto) [place] % (Auto) Eos % (Auto) Lymph # [place] # Lymph # (Auto) [place] # (Auto) Eos # (Auto) Seg Neutrophils % Seg Neuts % (Manual) Lymphocytes % (Manual) Seg Neutrophils # Seg Neutrophils # Man Lymphocytes # (Manual) Monocytes % (Manual) Eosinophils % (Manual) Monocytes # (Manual) Eosinophils # (Manual) D-Dimer Heparin Anti-Xa Level ABG pH POC ABG pCO2 POC ABG pO2 ABG pO2 ABG HCO3 ABG O2 Saturation ABG Base Excess ABG Hemoglobin ABG Oxyhemoglobin VBG pH ABG Sodium ABG Potassium ABG Glucose Oxyhemoglobin Sodium Potassium Chloride Carbon Dioxide BUN Creatinine Glucose POC Glucose 111 H 135 H 145 H Lactic Acid Calcium Ferritin AST Alkaline Phosphatase Magnesium Lactate Dehydrogenase Total Creatine Kinase CK-MB (CK-2) C-Reactive Protein Total Protein Albumin Troponin T HDL Cholesterol Arterial Blood Glucose Urine WBC (Auto) Urine Creatinine Urine Total Protein Phenytoin Coronavirus (PCR) Crossmatch 07/02/20 07/02/20 07/02/20 04:11 04:23 05:54 WBC RBC Hgb Hct MCHC RDW Lymph % (Auto) [place] % (Auto) Eos % (Auto) Lymph # [place] # Lymph # (Auto) [place] # (Auto) Eos # (Auto) Seg Neutrophils % Seg Neuts % (Manual) Lymphocytes % (Manual) Seg Neutrophils # Seg Neutrophils # Man Lymphocytes # (Manual) Monocytes % (Manual) Eosinophils % (Manual) Monocytes # (Manual) Eosinophils # (Manual) D-Dimer Heparin Anti-Xa Level ABG pH POC ABG pCO2 POC ABG pO2 ABG pO2 ABG HCO3 ABG O2 Saturation ABG Base Excess ABG Hemoglobin 5.4 L ABG Oxyhemoglobin VBG pH ABG Sodium ABG Potassium ABG Glucose Oxyhemoglobin Sodium Potassium Chloride 108.6 H Carbon Dioxide BUN 72 H Creatinine Glucose 112 H POC Glucose 137 H Lactic Acid Calcium 7.8 L Ferritin AST Alkaline Phosphatase Magnesium Lactate Dehydrogenase Total Creatine Kinase CK-MB (CK-2) C-Reactive Protein Total Protein Albumin Troponin T HDL Cholesterol Arterial Blood Glucose Urine WBC (Auto) Urine Creatinine Urine Total Protein Phenytoin Coronavirus (PCR) Crossmatch 07/02/20 07/02/20 07/02/20 11:38 18:04 23:59 WBC RBC Hgb Hct MCHC RDW Lymph % (Auto) [place] % (Auto) Eos % (Auto) Lymph # [place] # Lymph # (Auto) [place] # (Auto) Eos # (Auto) Seg Neutrophils % Seg Neuts % (Manual) Lymphocytes % (Manual) Seg Neutrophils # Seg Neutrophils # Man Lymphocytes # (Manual) Monocytes % (Manual) Eosinophils % (Manual) Monocytes # (Manual) Eosinophils # (Manual) D-Dimer Heparin Anti-Xa Level ABG pH POC ABG pCO2 POC ABG pO2 ABG pO2 ABG HCO3 ABG O2 Saturation ABG Base Excess ABG Hemoglobin ABG Oxyhemoglobin VBG pH ABG Sodium ABG Potassium ABG Glucose Oxyhemoglobin Sodium Potassium Chloride Carbon Dioxide BUN Creatinine Glucose POC Glucose 128 H 135 H 156 H Lactic Acid Calcium Ferritin AST Alkaline Phosphatase Magnesium Lactate Dehydrogenase Total Creatine Kinase CK-MB (CK-2) C-Reactive Protein Total Protein Albumin Troponin T HDL Cholesterol Arterial Blood Glucose Urine WBC (Auto) Urine Creatinine Urine Total Protein Phenytoin Coronavirus (PCR) Crossmatch 07/03/20 07/03/20 07/03/20 03:49 06:00 11:31 WBC RBC Hgb Hct MCHC RDW Lymph % (Auto) [place] % (Auto) Eos % (Auto) Lymph # [place] # Lymph # (Auto) [place] # (Auto) Eos # (Auto) Seg Neutrophils % Seg Neuts % (Manual) Lymphocytes % (Manual) Seg Neutrophils # Seg Neutrophils # Man Lymphocytes # (Manual) Monocytes % (Manual) Eosinophils % (Manual) Monocytes # (Manual) Eosinophils # (Manual) D-Dimer Heparin Anti-Xa Level ABG pH POC ABG pCO2 POC ABG pO2 ABG pO2 121.0 H ABG HCO3 ABG O2 Saturation ABG Base Excess ABG Hemoglobin 8.5 L ABG Oxyhemoglobin VBG pH ABG Sodium ABG Potassium ABG Glucose Oxyhemoglobin Sodium Potassium Chloride Carbon Dioxide BUN Creatinine Glucose POC Glucose 135 H 141 H Lactic Acid Calcium Ferritin AST Alkaline Phosphatase Magnesium Lactate Dehydrogenase Total Creatine Kinase CK-MB (CK-2) C-Reactive Protein Total Protein Albumin Troponin T HDL Cholesterol Arterial Blood Glucose Urine WBC (Auto) Urine Creatinine Urine Total Protein Phenytoin Coronavirus (PCR) Crossmatch 07/03/20 07/03/20 07/03/20 16:00 16:07 17:40 WBC RBC Hgb Hct MCHC RDW Lymph % (Auto) [place] % (Auto) Eos % (Auto) Lymph # [place] # Lymph # (Auto) [place] # (Auto) Eos # (Auto) Seg Neutrophils % Seg Neuts % (Manual) Lymphocytes % (Manual) Seg Neutrophils # Seg Neutrophils # Man Lymphocytes # (Manual) Monocytes % (Manual) Eosinophils % (Manual) Monocytes # (Manual) Eosinophils # (Manual) D-Dimer Heparin Anti-Xa Level ABG pH 7.271 L POC ABG pCO2 POC ABG pO2 ABG pO2 126.9 H ABG HCO3 ABG O2 Saturation ABG Base Excess ABG Hemoglobin 8.2 L 8.1 L ABG Oxyhemoglobin VBG pH ABG Sodium 130.3 L ABG Potassium 4.9 H ABG Glucose 163 H Oxyhemoglobin Sodium Potassium Chloride Carbon Dioxide BUN Creatinine Glucose POC Glucose 120 H Lactic Acid Calcium Ferritin AST Alkaline Phosphatase Magnesium Lactate Dehydrogenase Total Creatine Kinase CK-MB (CK-2) C-Reactive Protein Total Protein Albumin Troponin T HDL Cholesterol Arterial Blood Glucose 163 H Urine WBC (Auto) Urine Creatinine Urine Total Protein Phenytoin Coronavirus (PCR) Crossmatch 07/04/20 07/04/20 07/04/20 05:49 11:54 18:00 WBC RBC Hgb Hct MCHC RDW Lymph % (Auto) [place] % (Auto) Eos % (Auto) Lymph # [place] # Lymph # (Auto) [place] # (Auto) Eos # (Auto) Seg Neutrophils % Seg Neuts % (Manual) Lymphocytes % (Manual) Seg Neutrophils # Seg Neutrophils # Man Lymphocytes # (Manual) Monocytes % (Manual) Eosinophils % (Manual) Monocytes # (Manual) Eosinophils # (Manual) D-Dimer Heparin Anti-Xa Level ABG pH POC ABG pCO2 POC ABG pO2 ABG pO2 ABG HCO3 ABG O2 Saturation ABG Base Excess ABG Hemoglobin ABG Oxyhemoglobin VBG pH ABG Sodium ABG Potassium ABG Glucose Oxyhemoglobin Sodium Potassium Chloride Carbon Dioxide BUN Creatinine Glucose POC Glucose 128 H 168 H 133 H Lactic Acid Calcium Ferritin AST Alkaline Phosphatase Magnesium Lactate Dehydrogenase Total Creatine Kinase CK-MB (CK-2) C-Reactive Protein Total Protein Albumin Troponin T HDL Cholesterol Arterial Blood Glucose Urine WBC (Auto) Urine Creatinine Urine Total Protein Phenytoin Coronavirus (PCR) Crossmatch 07/05/20 07/05/20 07/05/20 00:07 01:12 02:30 WBC RBC 2.35 L Hgb 6.9 L Hct 21.1 L MCHC RDW 16.8 H Lymph % (Auto) [place] % (Auto) Eos % (Auto) Lymph # [place] # Lymph # (Auto) [place] # (Auto) Eos # (Auto) Seg Neutrophils % Seg Neuts % (Manual) 74.0 H Lymphocytes % (Manual) 12.0 L Seg Neutrophils # Seg Neutrophils # Man 8.0 H Lymphocytes # (Manual) Monocytes % (Manual) 9.0 H Eosinophils % (Manual) Monocytes # (Manual) 1.0 H Eosinophils # (Manual) D-Dimer Heparin Anti-Xa Level ABG pH POC ABG pCO2 POC ABG pO2 ABG pO2 ABG HCO3 ABG O2 Saturation ABG Base Excess ABG Hemoglobin ABG Oxyhemoglobin VBG pH ABG Sodium ABG Potassium ABG Glucose Oxyhemoglobin Sodium Potassium Chloride Carbon Dioxide BUN Creatinine Glucose POC Glucose 121 H Lactic Acid Calcium Ferritin AST Alkaline Phosphatase Magnesium Lactate Dehydrogenase Total Creatine Kinase CK-MB (CK-2) C-Reactive Protein Total Protein Albumin Troponin T HDL Cholesterol Arterial Blood Glucose Urine WBC (Auto) Urine Creatinine Urine Total Protein Phenytoin Coronavirus (PCR) Crossmatch See Detail 07/05/20 07/05/20 07/05/20 12:09 13:05 18:04 WBC RBC Hgb Hct MCHC RDW Lymph % (Auto) [place] % (Auto) Eos % (Auto) Lymph # [place] # Lymph # (Auto) [place] # (Auto) Eos # (Auto) Seg Neutrophils % Seg Neuts % (Manual) Lymphocytes % (Manual) Seg Neutrophils # Seg Neutrophils # Man Lymphocytes # (Manual) Monocytes % (Manual) Eosinophils % (Manual) Monocytes # (Manual) Eosinophils # (Manual) D-Dimer Heparin Anti-Xa Level ABG pH 7.32 L POC ABG pCO2 POC ABG pO2 ABG pO2 78.3 L ABG HCO3 ABG O2 Saturation ABG Base Excess -2.6 L ABG Hemoglobin 7.3 L ABG Oxyhemoglobin VBG pH ABG Sodium ABG Potassium ABG Glucose Oxyhemoglobin Sodium Potassium Chloride Carbon Dioxide BUN Creatinine Glucose POC Glucose 132 H 160 H Lactic Acid Calcium Ferritin AST Alkaline Phosphatase Magnesium Lactate Dehydrogenase Total Creatine Kinase CK-MB (CK-2) C-Reactive Protein Total Protein Albumin Troponin T HDL Cholesterol Arterial Blood Glucose Urine WBC (Auto) Urine Creatinine Urine Total Protein Phenytoin Coronavirus (PCR) Crossmatch 07/05/20 07/05/20 07/05/20 23:13 23:13 23:43 WBC RBC 2.57 L Hgb 7.7 L Hct 23.0 L MCHC RDW 16.9 H Lymph % (Auto) [place] % (Auto) Eos % (Auto) Lymph # [place] # Lymph # (Auto) [place] # (Auto) Eos # (Auto) Seg Neutrophils % Seg Neuts % (Manual) Lymphocytes % (Manual) Seg Neutrophils # Seg Neutrophils # Man Lymphocytes # (Manual) Monocytes % (Manual) Eosinophils % (Manual) Monocytes # (Manual) Eosinophils # (Manual) D-Dimer Heparin Anti-Xa Level ABG pH POC ABG pCO2 POC ABG pO2 ABG pO2 ABG HCO3 ABG O2 Saturation ABG Base Excess ABG Hemoglobin ABG Oxyhemoglobin VBG pH ABG Sodium ABG Potassium ABG Glucose Oxyhemoglobin Sodium Potassium Chloride Carbon Dioxide 20 L BUN 80 H Creatinine 2.4 H D Glucose 124 H POC Glucose 121 H Lactic Acid Calcium 7.6 L Ferritin AST Alkaline Phosphatase Magnesium Lactate Dehydrogenase Total Creatine Kinase CK-MB (CK-2) C-Reactive Protein Total Protein Albumin Troponin T HDL Cholesterol Arterial Blood Glucose Urine WBC (Auto) Urine Creatinine Urine Total Protein Phenytoin Coronavirus (PCR) Crossmatch 07/06/20 07/06/20 07/06/20 13:20 14:48 17:28 WBC RBC Hgb Hct MCHC RDW Lymph % (Auto) [place] % (Auto) Eos % (Auto) Lymph # [place] # Lymph # (Auto) [place] # (Auto) Eos # (Auto) Seg Neutrophils % Seg Neuts % (Manual) Lymphocytes % (Manual) Seg Neutrophils # Seg Neutrophils # Man Lymphocytes # (Manual) Monocytes % (Manual) Eosinophils % (Manual) Monocytes # (Manual) Eosinophils # (Manual) D-Dimer Heparin Anti-Xa Level ABG pH POC ABG pCO2 POC ABG pO2 ABG pO2 ABG HCO3 ABG O2 Saturation ABG Base Excess ABG Hemoglobin ABG Oxyhemoglobin VBG pH ABG Sodium ABG Potassium ABG Glucose Oxyhemoglobin Sodium 136 L Potassium 5.5 H Chloride Carbon Dioxide 19 L BUN 82 H Creatinine 2.5 H Glucose 113 H POC Glucose 133 H Lactic Acid Calcium 7.7 L Ferritin AST Alkaline Phosphatase Magnesium Lactate Dehydrogenase Total Creatine Kinase CK-MB (CK-2) C-Reactive Protein Total Protein Albumin Troponin T HDL Cholesterol Arterial Blood Glucose Urine WBC (Auto) Urine Creatinine 33.3 H Urine Total Protein Phenytoin Coronavirus (PCR) Crossmatch 07/07/20 07/07/20 07/07/20 00:12 04:15 04:15 WBC RBC 2.28 L Hgb 6.8 L Hct 20.7 L MCHC RDW 16.8 H Lymph % (Auto) [place] % (Auto) Eos % (Auto) Lymph # [place] # Lymph # (Auto) [place] # (Auto) Eos # (Auto) Seg Neutrophils % Seg Neuts % (Manual) Lymphocytes % (Manual) 13.0 L Seg Neutrophils # Seg Neutrophils # Man Lymphocytes # (Manual) 1.0 L Monocytes % (Manual) 11.0 H Eosinophils % (Manual) Monocytes # (Manual) 0.9 H Eosinophils # (Manual) D-Dimer Heparin Anti-Xa Level ABG pH POC ABG pCO2 POC ABG pO2 ABG pO2 ABG HCO3 ABG O2 Saturation ABG Base Excess ABG Hemoglobin ABG Oxyhemoglobin VBG pH ABG Sodium ABG Potassium ABG Glucose Oxyhemoglobin Sodium Potassium Chloride Carbon Dioxide BUN Creatinine Glucose POC Glucose 154 H Lactic Acid Calcium Ferritin AST Alkaline Phosphatase Magnesium 2.50 H Lactate Dehydrogenase Total Creatine Kinase CK-MB (CK-2) C-Reactive Protein Total Protein Albumin Troponin T HDL Cholesterol Arterial Blood Glucose Urine WBC (Auto) Urine Creatinine Urine Total Protein Phenytoin Coronavirus (PCR) Crossmatch 07/07/20 07/07/20 07/07/20 05:31 12:31 13:22 WBC RBC Hgb Hct MCHC RDW Lymph % (Auto) [place] % (Auto) Eos % (Auto) Lymph # [place] # Lymph # (Auto) [place] # (Auto) Eos # (Auto) Seg Neutrophils % Seg Neuts % (Manual) Lymphocytes % (Manual) Seg Neutrophils # Seg Neutrophils # Man Lymphocytes # (Manual) Monocytes % (Manual) Eosinophils % (Manual) Monocytes # (Manual) Eosinophils # (Manual) D-Dimer Heparin Anti-Xa Level ABG pH POC ABG pCO2 POC ABG pO2 ABG pO2 ABG HCO3 ABG O2 Saturation ABG Base Excess ABG Hemoglobin ABG Oxyhemoglobin VBG pH ABG Sodium ABG Potassium ABG Glucose Oxyhemoglobin Sodium Potassium 5.6 H Chloride Carbon Dioxide BUN 86 H Creatinine 2.9 H Glucose 127 H POC Glucose 135 H 131 H Lactic Acid Calcium 8.1 L Ferritin AST Alkaline Phosphatase Magnesium Lactate Dehydrogenase Total Creatine Kinase CK-MB (CK-2) C-Reactive Protein Total Protein Albumin Troponin T HDL Cholesterol Arterial Blood Glucose Urine WBC (Auto) Urine Creatinine Urine Total Protein Phenytoin Coronavirus (PCR) Crossmatch 07/07/20 07/07/20 07/08/20 17:55 23:33 04:14 WBC RBC 3.28 L Hgb 9.7 L Hct 28.9 L D MCHC RDW 16.4 H Lymph % (Auto) 10.3 L [place] % (Auto) 10.0 H Eos % (Auto) Lymph # [place] # Lymph # (Auto) 1.1 L [place] # (Auto) 1.1 H Eos # (Auto) Seg Neutrophils % 77.2 H Seg Neuts % (Manual) Lymphocytes % (Manual) Seg Neutrophils # 8.2 H Seg Neutrophils # Man Lymphocytes # (Manual) Monocytes % (Manual) Eosinophils % (Manual) Monocytes # (Manual) Eosinophils # (Manual) D-Dimer Heparin Anti-Xa Level ABG pH POC ABG pCO2 POC ABG pO2 ABG pO2 ABG HCO3 ABG O2 Saturation ABG Base Excess ABG Hemoglobin ABG Oxyhemoglobin VBG pH ABG Sodium ABG Potassium ABG Glucose Oxyhemoglobin Sodium Potassium Chloride Carbon Dioxide BUN Creatinine Glucose POC Glucose 136 H 159 H Lactic Acid Calcium Ferritin AST Alkaline Phosphatase Magnesium Lactate Dehydrogenase Total Creatine Kinase CK-MB (CK-2) C-Reactive Protein Total Protein Albumin Troponin T HDL Cholesterol Arterial Blood Glucose Urine WBC (Auto) Urine Creatinine Urine Total Protein Phenytoin Coronavirus (PCR) Crossmatch 07/08/20 07/08/20 07/08/20 04:14 12:10 18:10 WBC RBC Hgb Hct MCHC RDW Lymph % (Auto) [place] % (Auto) Eos % (Auto) Lymph # [place] # Lymph # (Auto) [place] # (Auto) Eos # (Auto) Seg Neutrophils % Seg Neuts % (Manual) Lymphocytes % (Manual) Seg Neutrophils # Seg Neutrophils # Man Lymphocytes # (Manual) Monocytes % (Manual) Eosinophils % (Manual) Monocytes # (Manual) Eosinophils # (Manual) D-Dimer Heparin Anti-Xa Level ABG pH POC ABG pCO2 POC ABG pO2 ABG pO2 ABG HCO3 ABG O2 Saturation ABG Base Excess ABG Hemoglobin ABG Oxyhemoglobin VBG pH ABG Sodium ABG Potassium ABG Glucose Oxyhemoglobin Sodium 136 L Potassium Chloride Carbon Dioxide BUN 84 H Creatinine 2.8 H Glucose 109 H POC Glucose 108 H 125 H Lactic Acid Calcium 8.1 L Ferritin AST Alkaline Phosphatase Magnesium 2.50 H Lactate Dehydrogenase Total Creatine Kinase CK-MB (CK-2) C-Reactive Protein Total Protein Albumin Troponin T HDL Cholesterol Arterial Blood Glucose Urine WBC (Auto) Urine Creatinine Urine Total Protein Phenytoin Coronavirus (PCR) Crossmatch 07/08/20 07/09/20 07/09/20 23:50 05:39 11:57 WBC RBC Hgb Hct MCHC RDW Lymph % (Auto) [place] % (Auto) Eos % (Auto) Lymph # [place] # Lymph # (Auto) [place] # (Auto) Eos # (Auto) Seg Neutrophils % Seg Neuts % (Manual) Lymphocytes % (Manual) Seg Neutrophils # Seg Neutrophils # Man Lymphocytes # (Manual) Monocytes % (Manual) Eosinophils % (Manual) Monocytes # (Manual) Eosinophils # (Manual) D-Dimer Heparin Anti-Xa Level ABG pH POC ABG pCO2 POC ABG pO2 ABG pO2 ABG HCO3 ABG O2 Saturation ABG Base Excess ABG Hemoglobin ABG Oxyhemoglobin VBG pH ABG Sodium ABG Potassium ABG Glucose Oxyhemoglobin Sodium Potassium Chloride Carbon Dioxide BUN Creatinine Glucose POC Glucose 141 H 121 H 123 H Lactic Acid Calcium Ferritin AST Alkaline Phosphatase Magnesium Lactate Dehydrogenase Total Creatine Kinase CK-MB (CK-2) C-Reactive Protein Total Protein Albumin Troponin T HDL Cholesterol Arterial Blood Glucose Urine WBC (Auto) Urine Creatinine Urine Total Protein Phenytoin Coronavirus (PCR) Crossmatch 07/09/20 07/10/20 07/10/20 17:56 00:29 05:50 WBC RBC Hgb Hct MCHC RDW Lymph % (Auto) [place] % (Auto) Eos % (Auto) Lymph # [place] # Lymph # (Auto) [place] # (Auto) Eos # (Auto) Seg Neutrophils % Seg Neuts % (Manual) Lymphocytes % (Manual) Seg Neutrophils # Seg Neutrophils # Man Lymphocytes # (Manual) Monocytes % (Manual) Eosinophils % (Manual) Monocytes # (Manual) Eosinophils # (Manual) D-Dimer Heparin Anti-Xa Level ABG pH POC ABG pCO2 POC ABG pO2 ABG pO2 ABG HCO3 ABG O2 Saturation ABG Base Excess ABG Hemoglobin ABG Oxyhemoglobin VBG pH ABG Sodium ABG Potassium ABG Glucose Oxyhemoglobin Sodium Potassium Chloride Carbon Dioxide BUN Creatinine Glucose POC Glucose 119 H 122 H 124 H Lactic Acid Calcium Ferritin AST Alkaline Phosphatase Magnesium Lactate Dehydrogenase Total Creatine Kinase CK-MB (CK-2) C-Reactive Protein Total Protein Albumin Troponin T HDL Cholesterol Arterial Blood Glucose Urine WBC (Auto) Urine Creatinine Urine Total Protein Phenytoin Coronavirus (PCR) Crossmatch 07/10/20 07/10/20 07/10/20 10:41 10:41 12:25 WBC RBC 3.11 L Hgb 9.2 L Hct 27.6 L MCHC RDW 16.6 H Lymph % (Auto) [place] % (Auto) Eos % (Auto) Lymph # [place] # Lymph # (Auto) [place] # (Auto) Eos # (Auto) Seg Neutrophils % Seg Neuts % (Manual) 78.0 H Lymphocytes % (Manual) 11.0 L Seg Neutrophils # Seg Neutrophils # Man Lymphocytes # (Manual) 1.0 L Monocytes % (Manual) Eosinophils % (Manual) Monocytes # (Manual) Eosinophils # (Manual) D-Dimer Heparin Anti-Xa Level ABG pH POC ABG pCO2 POC ABG pO2 ABG pO2 ABG HCO3 ABG O2 Saturation ABG Base Excess ABG Hemoglobin ABG Oxyhemoglobin VBG pH ABG Sodium ABG Potassium ABG Glucose Oxyhemoglobin Sodium Potassium Chloride Carbon Dioxide BUN 85 H Creatinine 2.5 H Glucose 133 H POC Glucose 131 H Lactic Acid Calcium Ferritin AST Alkaline Phosphatase 131 H Magnesium Lactate Dehydrogenase Total Creatine Kinase CK-MB (CK-2) C-Reactive Protein Total Protein 5.2 L Albumin 1.6 L Troponin T HDL Cholesterol Arterial Blood Glucose Urine WBC (Auto) Urine Creatinine Urine Total Protein Phenytoin Coronavirus (PCR) Crossmatch 07/10/20 07/11/20 07/11/20 18:10 00:28 05:57 WBC RBC Hgb Hct MCHC RDW Lymph % (Auto) [place] % (Auto) Eos % (Auto) Lymph # [place] # Lymph # (Auto) [place] # (Auto) Eos # (Auto) Seg Neutrophils % Seg Neuts % (Manual) Lymphocytes % (Manual) Seg Neutrophils # Seg Neutrophils # Man Lymphocytes # (Manual) Monocytes % (Manual) Eosinophils % (Manual) Monocytes # (Manual) Eosinophils # (Manual) D-Dimer Heparin Anti-Xa Level ABG pH POC ABG pCO2 POC ABG pO2 ABG pO2 ABG HCO3 ABG O2 Saturation ABG Base Excess ABG Hemoglobin ABG Oxyhemoglobin VBG pH ABG Sodium ABG Potassium ABG Glucose Oxyhemoglobin Sodium Potassium Chloride Carbon Dioxide BUN Creatinine Glucose POC Glucose 134 H 140 H 148 H Lactic Acid Calcium Ferritin AST Alkaline Phosphatase Magnesium Lactate Dehydrogenase Total Creatine Kinase CK-MB (CK-2) C-Reactive Protein Total Protein Albumin Troponin T HDL Cholesterol Arterial Blood Glucose Urine WBC (Auto) Urine Creatinine Urine Total Protein Phenytoin Coronavirus (PCR) Crossmatch 07/11/20 07/11/20 07/11/20 12:14 17:28 23:49 WBC RBC Hgb Hct MCHC RDW Lymph % (Auto) [place] % (Auto) Eos % (Auto) Lymph # [place] # Lymph # (Auto) [place] # (Auto) Eos # (Auto) Seg Neutrophils % Seg Neuts % (Manual) Lymphocytes % (Manual) Seg Neutrophils # Seg Neutrophils # Man Lymphocytes # (Manual) Monocytes % (Manual) Eosinophils % (Manual) Monocytes # (Manual) Eosinophils # (Manual) D-Dimer Heparin Anti-Xa Level ABG pH POC ABG pCO2 POC ABG pO2 ABG pO2 ABG HCO3 ABG O2 Saturation ABG Base Excess ABG Hemoglobin ABG Oxyhemoglobin VBG pH ABG Sodium ABG Potassium ABG Glucose Oxyhemoglobin Sodium Potassium Chloride Carbon Dioxide BUN Creatinine Glucose POC Glucose 147 H 175 H 114 H Lactic Acid Calcium Ferritin AST Alkaline Phosphatase Magnesium Lactate Dehydrogenase Total Creatine Kinase CK-MB (CK-2) C-Reactive Protein Total Protein Albumin Troponin T HDL Cholesterol Arterial Blood Glucose Urine WBC (Auto) Urine Creatinine Urine Total Protein Phenytoin Coronavirus (PCR) Crossmatch 10/04/20 10/04/20 10/04/20 05:14 05:14 05:44 WBC RBC 2.78 L Hgb 8.5 L Hct 25.3 L MCHC RDW 16.7 H Lymph % (Auto) [place] % (Auto) Eos % (Auto) Lymph # [place] # Lymph # (Auto) [place] # (Auto) Eos # (Auto) Seg Neutrophils % Seg Neuts % (Manual) 81.0 H Lymphocytes % (Manual) 6.0 L Seg Neutrophils # Seg Neutrophils # Man Lymphocytes # (Manual) 0.6 L Monocytes % (Manual) 8.0 H Eosinophils % (Manual) Monocytes # (Manual) Eosinophils # (Manual) D-Dimer Heparin Anti-Xa Level ABG pH POC ABG pCO2 POC ABG pO2 ABG pO2 ABG HCO3 ABG O2 Saturation ABG Base Excess ABG Hemoglobin ABG Oxyhemoglobin VBG pH ABG Sodium ABG Potassium ABG Glucose Oxyhemoglobin Sodium Potassium Chloride Carbon Dioxide BUN 79 H Creatinine 2.2 H Glucose 131 H POC Glucose 116 H Lactic Acid Calcium Ferritin AST Alkaline Phosphatase Magnesium Lactate Dehydrogenase Total Creatine Kinase CK-MB (CK-2) C-Reactive Protein Total Protein Albumin Troponin T HDL Cholesterol Arterial Blood Glucose Urine WBC (Auto) Urine Creatinine Urine Total Protein Phenytoin Coronavirus (PCR) Crossmatch 07/12/20 07/12/20 07/13/20 11:32 17:53 00:18 WBC RBC Hgb Hct MCHC RDW Lymph % (Auto) [place] % (Auto) Eos % (Auto) Lymph # [place] # Lymph # (Auto) [place] # (Auto) Eos # (Auto) Seg Neutrophils % Seg Neuts % (Manual) Lymphocytes % (Manual) Seg Neutrophils # Seg Neutrophils # Man Lymphocytes # (Manual) Monocytes % (Manual) Eosinophils % (Manual) Monocytes # (Manual) Eosinophils # (Manual) D-Dimer Heparin Anti-Xa Level ABG pH POC ABG pCO2 POC ABG pO2 ABG pO2 ABG HCO3 ABG O2 Saturation ABG Base Excess ABG Hemoglobin ABG Oxyhemoglobin VBG pH ABG Sodium ABG Potassium ABG Glucose Oxyhemoglobin Sodium Potassium Chloride Carbon Dioxide BUN Creatinine Glucose POC Glucose 132 H 155 H 162 H Lactic Acid Calcium Ferritin AST Alkaline Phosphatase Magnesium Lactate Dehydrogenase Total Creatine Kinase CK-MB (CK-2) C-Reactive Protein Total Protein Albumin Troponin T HDL Cholesterol Arterial Blood Glucose Urine WBC (Auto) Urine Creatinine Urine Total Protein Phenytoin Coronavirus (PCR) Crossmatch 07/13/20 07/13/20 07/13/20 04:53 04:53 06:14 WBC RBC 2.86 L Hgb 8.4 L Hct 25.7 L MCHC RDW 16.8 H Lymph % (Auto) [place] % (Auto) Eos % (Auto) Lymph # [place] # Lymph # (Auto) [place] # (Auto) Eos # (Auto) Seg Neutrophils % Seg Neuts % (Manual) 84.0 H Lymphocytes % (Manual) 7.0 L Seg Neutrophils # Seg Neutrophils # Man Lymphocytes # (Manual) 0.6 L Monocytes % (Manual) Eosinophils % (Manual) Monocytes # (Manual) Eosinophils # (Manual) D-Dimer Heparin Anti-Xa Level ABG pH POC ABG pCO2 POC ABG pO2 ABG pO2 ABG HCO3 ABG O2 Saturation ABG Base Excess ABG Hemoglobin ABG Oxyhemoglobin VBG pH ABG Sodium ABG Potassium ABG Glucose Oxyhemoglobin Sodium 136 L Potassium Chloride Carbon Dioxide BUN 78 H Creatinine 2.0 H Glucose 130 H POC Glucose 141 H Lactic Acid Calcium Ferritin AST Alkaline Phosphatase Magnesium Lactate Dehydrogenase Total Creatine Kinase CK-MB (CK-2) C-Reactive Protein Total Protein Albumin Troponin T HDL Cholesterol Arterial Blood Glucose Urine WBC (Auto) Urine Creatinine Urine Total Protein Phenytoin Coronavirus (PCR) Crossmatch 07/13/20 07/13/20 07/14/20 12:50 18:27 00:22 WBC RBC Hgb Hct MCHC RDW Lymph % (Auto) [place] % (Auto) Eos % (Auto) Lymph # [place] # Lymph # (Auto) [place] # (Auto) Eos # (Auto) Seg Neutrophils % Seg Neuts % (Manual) Lymphocytes % (Manual) Seg Neutrophils # Seg Neutrophils # Man Lymphocytes # (Manual) Monocytes % (Manual) Eosinophils % (Manual) Monocytes # (Manual) Eosinophils # (Manual) D-Dimer Heparin Anti-Xa Level ABG pH POC ABG pCO2 POC ABG pO2 ABG pO2 ABG HCO3 ABG O2 Saturation ABG Base Excess ABG Hemoglobin ABG Oxyhemoglobin VBG pH ABG Sodium ABG Potassium ABG Glucose Oxyhemoglobin Sodium Potassium Chloride Carbon Dioxide BUN Creatinine Glucose POC Glucose 146 H 149 H 157 H Lactic Acid Calcium Ferritin AST Alkaline Phosphatase Magnesium Lactate Dehydrogenase Total Creatine Kinase CK-MB (CK-2) C-Reactive Protein Total Protein Albumin Troponin T HDL Cholesterol Arterial Blood Glucose Urine WBC (Auto) Urine Creatinine Urine Total Protein Phenytoin Coronavirus (PCR) Crossmatch 07/14/20 07/14/20 07/14/20 05:43 08:04 12:12 WBC RBC Hgb Hct MCHC RDW Lymph % (Auto) [place] % (Auto) Eos % (Auto) Lymph # [place] # Lymph # (Auto) [place] # (Auto) Eos # (Auto) Seg Neutrophils % Seg Neuts % (Manual) Lymphocytes % (Manual) Seg Neutrophils # Seg Neutrophils # Man Lymphocytes # (Manual) Monocytes % (Manual) Eosinophils % (Manual) Monocytes # (Manual) Eosinophils # (Manual) D-Dimer Heparin Anti-Xa Level ABG pH POC ABG pCO2 POC ABG pO2 ABG pO2 ABG HCO3 ABG O2 Saturation ABG Base Excess ABG Hemoglobin ABG Oxyhemoglobin VBG pH ABG Sodium ABG Potassium ABG Glucose Oxyhemoglobin Sodium Potassium Chloride Carbon Dioxide BUN Creatinine Glucose POC Glucose 169 H 185 H Lactic Acid Calcium Ferritin AST Alkaline Phosphatase Magnesium Lactate Dehydrogenase Total Creatine Kinase CK-MB (CK-2) C-Reactive Protein Total Protein Albumin Troponin T HDL Cholesterol Arterial Blood Glucose Urine WBC (Auto) Urine Creatinine Urine Total Protein Phenytoin Coronavirus (PCR) Positive A Crossmatch 07/14/20 07/15/20 07/15/20 17:23 00:04 06:06 WBC RBC Hgb Hct MCHC RDW Lymph % (Auto) [place] % (Auto) Eos % (Auto) Lymph # [place] # Lymph # (Auto) [place] # (Auto) Eos # (Auto) Seg Neutrophils % Seg Neuts % (Manual) Lymphocytes % (Manual) Seg Neutrophils # Seg Neutrophils # Man Lymphocytes # (Manual) Monocytes % (Manual) Eosinophils % (Manual) Monocytes # (Manual) Eosinophils # (Manual) D-Dimer Heparin Anti-Xa Level ABG pH POC ABG pCO2 POC ABG pO2 ABG pO2 ABG HCO3 ABG O2 Saturation ABG Base Excess ABG Hemoglobin ABG Oxyhemoglobin VBG pH ABG Sodium ABG Potassium ABG Glucose Oxyhemoglobin Sodium Potassium Chloride Carbon Dioxide BUN Creatinine Glucose POC Glucose 138 H 121 H 140 H Lactic Acid Calcium Ferritin AST Alkaline Phosphatase Magnesium Lactate Dehydrogenase Total Creatine Kinase CK-MB (CK-2) C-Reactive Protein Total Protein Albumin Troponin T HDL Cholesterol Arterial Blood Glucose Urine WBC (Auto) Urine Creatinine Urine Total Protein Phenytoin Coronavirus (PCR) Crossmatch 07/15/20 07/15/20 07/15/20 12:00 17:53 23:53 WBC RBC Hgb Hct MCHC RDW Lymph % (Auto) [place] % (Auto) Eos % (Auto) Lymph # [place] # Lymph # (Auto) [place] # (Auto) Eos # (Auto) Seg Neutrophils % Seg Neuts % (Manual) Lymphocytes % (Manual) Seg Neutrophils # Seg Neutrophils # Man Lymphocytes # (Manual) Monocytes % (Manual) Eosinophils % (Manual) Monocytes # (Manual) Eosinophils # (Manual) D-Dimer Heparin Anti-Xa Level ABG pH POC ABG pCO2 POC ABG pO2 ABG pO2 ABG HCO3 ABG O2 Saturation ABG Base Excess ABG Hemoglobin ABG Oxyhemoglobin VBG pH ABG Sodium ABG Potassium ABG Glucose Oxyhemoglobin Sodium Potassium Chloride Carbon Dioxide BUN Creatinine Glucose POC Glucose 137 H 161 H 156 H Lactic Acid Calcium Ferritin AST Alkaline Phosphatase Magnesium Lactate Dehydrogenase Total Creatine Kinase CK-MB (CK-2) C-Reactive Protein Total Protein Albumin Troponin T HDL Cholesterol Arterial Blood Glucose Urine WBC (Auto) Urine Creatinine Urine Total Protein Phenytoin Coronavirus (PCR) Crossmatch 07/16/20 07/16/20 07/17/20 05:26 17:44 00:07 WBC RBC Hgb Hct MCHC RDW Lymph % (Auto) [place] % (Auto) Eos % (Auto) Lymph # [place] # Lymph # (Auto) [place] # (Auto) Eos # (Auto) Seg Neutrophils % Seg Neuts % (Manual) Lymphocytes % (Manual) Seg Neutrophils # Seg Neutrophils # Man Lymphocytes # (Manual) Monocytes % (Manual) Eosinophils % (Manual) Monocytes # (Manual) Eosinophils # (Manual) D-Dimer Heparin Anti-Xa Level ABG pH POC ABG pCO2 POC ABG pO2 ABG pO2 ABG HCO3 ABG O2 Saturation ABG Base Excess ABG Hemoglobin ABG Oxyhemoglobin VBG pH ABG Sodium ABG Potassium ABG Glucose Oxyhemoglobin Sodium Potassium Chloride Carbon Dioxide BUN Creatinine Glucose POC Glucose 152 H 126 H 189 H Lactic Acid Calcium Ferritin AST Alkaline Phosphatase Magnesium Lactate Dehydrogenase Total Creatine Kinase CK-MB (CK-2) C-Reactive Protein Total Protein Albumin Troponin T HDL Cholesterol Arterial Blood Glucose Urine WBC (Auto) Urine Creatinine Urine Total Protein Phenytoin Coronavirus (PCR) Crossmatch 07/17/20 07/17/20 07/17/20 12:06 18:20 23:25 WBC RBC Hgb Hct MCHC RDW Lymph % (Auto) [place] % (Auto) Eos % (Auto) Lymph # [place] # Lymph # (Auto) [place] # (Auto) Eos # (Auto) Seg Neutrophils % Seg Neuts % (Manual) Lymphocytes % (Manual) Seg Neutrophils # Seg Neutrophils # Man Lymphocytes # (Manual) Monocytes % (Manual) Eosinophils % (Manual) Monocytes # (Manual) Eosinophils # (Manual) D-Dimer Heparin Anti-Xa Level ABG pH POC ABG pCO2 POC ABG pO2 ABG pO2 ABG HCO3 ABG O2 Saturation ABG Base Excess ABG Hemoglobin ABG Oxyhemoglobin VBG pH ABG Sodium ABG Potassium ABG Glucose Oxyhemoglobin Sodium Potassium Chloride Carbon Dioxide BUN Creatinine Glucose POC Glucose 155 H 206 H 161 H Lactic Acid Calcium Ferritin AST Alkaline Phosphatase Magnesium Lactate Dehydrogenase Total Creatine Kinase CK-MB (CK-2) C-Reactive Protein Total Protein Albumin Troponin T HDL Cholesterol Arterial Blood Glucose Urine WBC (Auto) Urine Creatinine Urine Total Protein Phenytoin Coronavirus (PCR) Crossmatch 07/18/20 07/18/20 07/18/20 04:24 05:16 11:53 WBC RBC Hgb Hct MCHC RDW Lymph % (Auto) [place] % (Auto) Eos % (Auto) Lymph # [place] # Lymph # (Auto) [place] # (Auto) Eos # (Auto) Seg Neutrophils % Seg Neuts % (Manual) Lymphocytes % (Manual) Seg Neutrophils # Seg Neutrophils # Man Lymphocytes # (Manual) Monocytes % (Manual) Eosinophils % (Manual) Monocytes # (Manual) Eosinophils # (Manual) D-Dimer Heparin Anti-Xa Level ABG pH POC ABG pCO2 POC ABG pO2 ABG pO2 ABG HCO3 ABG O2 Saturation ABG Base Excess ABG Hemoglobin 8.8 L ABG Oxyhemoglobin VBG pH ABG Sodium 131.6 L ABG Potassium 4.9 H ABG Glucose 131 H Oxyhemoglobin Sodium Potassium Chloride Carbon Dioxide BUN Creatinine Glucose POC Glucose 140 H 176 H Lactic Acid Calcium Ferritin AST Alkaline Phosphatase Magnesium Lactate Dehydrogenase Total Creatine Kinase CK-MB (CK-2) C-Reactive Protein Total Protein Albumin Troponin T HDL Cholesterol Arterial Blood Glucose 131 H Urine WBC (Auto) Urine Creatinine Urine Total Protein Phenytoin Coronavirus (PCR) Crossmatch 07/18/20 07/18/20 07/19/20 18:11 23:51 01:05 WBC RBC 2.76 L Hgb 7.9 L Hct 24.5 L MCHC RDW 17.6 H Lymph % (Auto) 11.6 L [place] % (Auto) 13.1 H Eos % (Auto) Lymph # [place] # Lymph # (Auto) 1.0 L [place] # (Auto) 1.1 H Eos # (Auto) Seg Neutrophils % 70.9 H Seg Neuts % (Manual) Lymphocytes % (Manual) Seg Neutrophils # Seg Neutrophils # Man Lymphocytes # (Manual) Monocytes % (Manual) Eosinophils % (Manual) Monocytes # (Manual) Eosinophils # (Manual) D-Dimer Heparin Anti-Xa Level ABG pH POC ABG pCO2 POC ABG pO2 ABG pO2 ABG HCO3 ABG O2 Saturation ABG Base Excess ABG Hemoglobin ABG Oxyhemoglobin VBG pH ABG Sodium ABG Potassium ABG Glucose Oxyhemoglobin Sodium Potassium Chloride Carbon Dioxide BUN Creatinine Glucose POC Glucose 143 H 159 H Lactic Acid Calcium Ferritin AST Alkaline Phosphatase Magnesium Lactate Dehydrogenase Total Creatine Kinase CK-MB (CK-2) C-Reactive Protein Total Protein Albumin Troponin T HDL Cholesterol Arterial Blood Glucose Urine WBC (Auto) Urine Creatinine Urine Total Protein Phenytoin Coronavirus (PCR) Crossmatch 07/19/20 07/19/20 07/19/20 01:05 05:54 12:46 WBC RBC Hgb Hct MCHC RDW Lymph % (Auto) [place] % (Auto) Eos % (Auto) Lymph # [place] # Lymph # (Auto) [place] # (Auto) Eos # (Auto) Seg Neutrophils % Seg Neuts % (Manual) Lymphocytes % (Manual) Seg Neutrophils # Seg Neutrophils # Man Lymphocytes # (Manual) Monocytes % (Manual) Eosinophils % (Manual) Monocytes # (Manual) Eosinophils # (Manual) D-Dimer Heparin Anti-Xa Level ABG pH POC ABG pCO2 POC ABG pO2 ABG pO2 ABG HCO3 ABG O2 Saturation ABG Base Excess ABG Hemoglobin ABG Oxyhemoglobin VBG pH ABG Sodium ABG Potassium ABG Glucose Oxyhemoglobin Sodium Potassium Chloride Carbon Dioxide BUN 86 H Creatinine 1.7 H Glucose 149 H POC Glucose 176 H 127 H Lactic Acid Calcium Ferritin AST Alkaline Phosphatase Magnesium Lactate Dehydrogenase Total Creatine Kinase CK-MB (CK-2) C-Reactive Protein Total Protein Albumin Troponin T HDL Cholesterol Arterial Blood Glucose Urine WBC (Auto) Urine Creatinine Urine Total Protein Phenytoin Coronavirus (PCR) Crossmatch 07/19/20 07/20/20 07/20/20 17:48 00:34 05:28 WBC RBC Hgb Hct MCHC RDW Lymph % (Auto) [place] % (Auto) Eos % (Auto) Lymph # [place] # Lymph # (Auto) [place] # (Auto) Eos # (Auto) Seg Neutrophils % Seg Neuts % (Manual) Lymphocytes % (Manual) Seg Neutrophils # Seg Neutrophils # Man Lymphocytes # (Manual) Monocytes % (Manual) Eosinophils % (Manual) Monocytes # (Manual) Eosinophils # (Manual) D-Dimer Heparin Anti-Xa Level ABG pH POC ABG pCO2 POC ABG pO2 ABG pO2 ABG HCO3 ABG O2 Saturation ABG Base Excess ABG Hemoglobin ABG Oxyhemoglobin VBG pH ABG Sodium ABG Potassium ABG Glucose Oxyhemoglobin Sodium Potassium Chloride Carbon Dioxide BUN Creatinine Glucose POC Glucose 123 H 147 H 110 H Lactic Acid Calcium Ferritin AST Alkaline Phosphatase Magnesium Lactate Dehydrogenase Total Creatine Kinase CK-MB (CK-2) C-Reactive Protein Total Protein Albumin Troponin T HDL Cholesterol Arterial Blood Glucose Urine WBC (Auto) Urine Creatinine Urine Total Protein Phenytoin Coronavirus (PCR) Crossmatch 07/20/20 07/20/20 07/21/20 12:10 17:00 00:11 WBC RBC Hgb Hct MCHC RDW Lymph % (Auto) [place] % (Auto) Eos % (Auto) Lymph # [place] # Lymph # (Auto) [place] # (Auto) Eos # (Auto) Seg Neutrophils % Seg Neuts % (Manual) Lymphocytes % (Manual) Seg Neutrophils # Seg Neutrophils # Man Lymphocytes # (Manual) Monocytes % (Manual) Eosinophils % (Manual) Monocytes # (Manual) Eosinophils # (Manual) D-Dimer Heparin Anti-Xa Level ABG pH POC ABG pCO2 POC ABG pO2 ABG pO2 ABG HCO3 ABG O2 Saturation ABG Base Excess ABG Hemoglobin ABG Oxyhemoglobin VBG pH ABG Sodium ABG Potassium ABG Glucose Oxyhemoglobin Sodium Potassium Chloride Carbon Dioxide BUN Creatinine Glucose POC Glucose 149 H 173 H 128 H Lactic Acid Calcium Ferritin AST Alkaline Phosphatase Magnesium Lactate Dehydrogenase Total Creatine Kinase CK-MB (CK-2) C-Reactive Protein Total Protein Albumin Troponin T HDL Cholesterol Arterial Blood Glucose Urine WBC (Auto) Urine Creatinine Urine Total Protein Phenytoin Coronavirus (PCR) Crossmatch 07/21/20 07/21/20 07/21/20 05:30 12:21 18:17 WBC RBC Hgb Hct MCHC RDW Lymph % (Auto) [place] % (Auto) Eos % (Auto) Lymph # [place] # Lymph # (Auto) [place] # (Auto) Eos # (Auto) Seg Neutrophils % Seg Neuts % (Manual) Lymphocytes % (Manual) Seg Neutrophils # Seg Neutrophils # Man Lymphocytes # (Manual) Monocytes % (Manual) Eosinophils % (Manual) Monocytes # (Manual) Eosinophils # (Manual) D-Dimer Heparin Anti-Xa Level ABG pH POC ABG pCO2 POC ABG pO2 ABG pO2 ABG HCO3 ABG O2 Saturation ABG Base Excess ABG Hemoglobin ABG Oxyhemoglobin VBG pH ABG Sodium ABG Potassium ABG Glucose Oxyhemoglobin Sodium Potassium Chloride Carbon Dioxide BUN Creatinine Glucose POC Glucose 153 H 144 H 160 H Lactic Acid Calcium Ferritin AST Alkaline Phosphatase Magnesium Lactate Dehydrogenase Total Creatine Kinase CK-MB (CK-2) C-Reactive Protein Total Protein Albumin Troponin T HDL Cholesterol Arterial Blood Glucose Urine WBC (Auto) Urine Creatinine Urine Total Protein Phenytoin Coronavirus (PCR) Crossmatch 07/22/20 07/22/20 07/22/20 00:45 05:52 12:03 WBC RBC Hgb Hct MCHC RDW Lymph % (Auto) [place] % (Auto) Eos % (Auto) Lymph # [place] # Lymph # (Auto) [place] # (Auto) Eos # (Auto) Seg Neutrophils % Seg Neuts % (Manual) Lymphocytes % (Manual) Seg Neutrophils # Seg Neutrophils # Man Lymphocytes # (Manual) Monocytes % (Manual) Eosinophils % (Manual) Monocytes # (Manual) Eosinophils # (Manual) D-Dimer Heparin Anti-Xa Level ABG pH POC ABG pCO2 POC ABG pO2 ABG pO2 ABG HCO3 ABG O2 Saturation ABG Base Excess ABG Hemoglobin ABG Oxyhemoglobin VBG pH ABG Sodium ABG Potassium ABG Glucose Oxyhemoglobin Sodium Potassium Chloride Carbon Dioxide BUN Creatinine Glucose POC Glucose 128 H 126 H 157 H Lactic Acid Calcium Ferritin AST Alkaline Phosphatase Magnesium Lactate Dehydrogenase Total Creatine Kinase CK-MB (CK-2) C-Reactive Protein Total Protein Albumin Troponin T HDL Cholesterol Arterial Blood Glucose Urine WBC (Auto) Urine Creatinine Urine Total Protein Phenytoin Coronavirus (PCR) Crossmatch 07/22/20 07/22/20 07/23/20 18:23 23:20 06:06 WBC RBC Hgb Hct MCHC RDW Lymph % (Auto) [place] % (Auto) Eos % (Auto) Lymph # [place] # Lymph # (Auto) [place] # (Auto) Eos # (Auto) Seg Neutrophils % Seg Neuts % (Manual) Lymphocytes % (Manual) Seg Neutrophils # Seg Neutrophils # Man Lymphocytes # (Manual) Monocytes % (Manual) Eosinophils % (Manual) Monocytes # (Manual) Eosinophils # (Manual) D-Dimer Heparin Anti-Xa Level ABG pH POC ABG pCO2 POC ABG pO2 ABG pO2 ABG HCO3 ABG O2 Saturation ABG Base Excess ABG Hemoglobin ABG Oxyhemoglobin VBG pH ABG Sodium ABG Potassium ABG Glucose Oxyhemoglobin Sodium Potassium Chloride Carbon Dioxide BUN Creatinine Glucose POC Glucose 152 H 122 H 143 H Lactic Acid Calcium Ferritin AST Alkaline Phosphatase Magnesium Lactate Dehydrogenase Total Creatine Kinase CK-MB (CK-2) C-Reactive Protein Total Protein Albumin Troponin T HDL Cholesterol Arterial Blood Glucose Urine WBC (Auto) Urine Creatinine Urine Total Protein Phenytoin Coronavirus (PCR) Crossmatch 07/23/20 07/23/20 07/23/20 12:11 17:38 19:23 WBC RBC Hgb Hct MCHC RDW Lymph % (Auto) [place] % (Auto) Eos % (Auto) Lymph # [place] # Lymph # (Auto) [place] # (Auto) Eos # (Auto) Seg Neutrophils % Seg Neuts % (Manual) Lymphocytes % (Manual) Seg Neutrophils # Seg Neutrophils # Man Lymphocytes # (Manual) Monocytes % (Manual) Eosinophils % (Manual) Monocytes # (Manual) Eosinophils # (Manual) D-Dimer Heparin Anti-Xa Level ABG pH POC ABG pCO2 POC ABG pO2 ABG pO2 ABG HCO3 ABG O2 Saturation ABG Base Excess ABG Hemoglobin ABG Oxyhemoglobin VBG pH ABG Sodium ABG Potassium ABG Glucose Oxyhemoglobin Sodium 129 L D Potassium 5.8 H Chloride 95.6 L Carbon Dioxide BUN 98 H Creatinine 2.1 H Glucose 167 H POC Glucose 210 H 181 H Lactic Acid Calcium Ferritin AST Alkaline Phosphatase Magnesium Lactate Dehydrogenase Total Creatine Kinase CK-MB (CK-2) C-Reactive Protein Total Protein Albumin 2.2 L Troponin T HDL Cholesterol Arterial Blood Glucose Urine WBC (Auto) Urine Creatinine Urine Total Protein Phenytoin Coronavirus (PCR) Crossmatch 07/24/20 07/24/20 07/24/20 00:00 04:29 04:29 WBC RBC 2.53 L Hgb 7.5 L Hct 22.8 L MCHC RDW 16.8 H Lymph % (Auto) 9.4 L [place] % (Auto) 10.4 H Eos % (Auto) 5.9 H Lymph # [place] # Lymph # (Auto) 0.8 L [place] # (Auto) 0.9 H Eos # (Auto) 0.5 H Seg Neutrophils % 73.5 H Seg Neuts % (Manual) Lymphocytes % (Manual) Seg Neutrophils # Seg Neutrophils # Man Lymphocytes # (Manual) Monocytes % (Manual) Eosinophils % (Manual) Monocytes # (Manual) Eosinophils # (Manual) D-Dimer Heparin Anti-Xa Level ABG pH POC ABG pCO2 POC ABG pO2 ABG pO2 ABG HCO3 ABG O2 Saturation ABG Base Excess ABG Hemoglobin ABG Oxyhemoglobin VBG pH ABG Sodium ABG Potassium ABG Glucose Oxyhemoglobin Sodium Potassium Chloride Carbon Dioxide BUN Creatinine Glucose POC Glucose 201 H Lactic Acid Calcium Ferritin AST Alkaline Phosphatase Magnesium Lactate Dehydrogenase Total Creatine Kinase CK-MB (CK-2) C-Reactive Protein Total Protein Albumin Troponin T HDL Cholesterol Arterial Blood Glucose Urine WBC (Auto) Urine Creatinine Urine Total Protein Phenytoin 9.4 L Coronavirus (PCR) Crossmatch 07/24/20 07/24/20 07/24/20 04:29 05:11 12:14 WBC RBC Hgb Hct MCHC RDW Lymph % (Auto) [place] % (Auto) Eos % (Auto) Lymph # [place] # Lymph # (Auto) [place] # (Auto) Eos # (Auto) Seg Neutrophils % Seg Neuts % (Manual) Lymphocytes % (Manual) Seg Neutrophils # Seg Neutrophils # Man Lymphocytes # (Manual) Monocytes % (Manual) Eosinophils % (Manual) Monocytes # (Manual) Eosinophils # (Manual) D-Dimer Heparin Anti-Xa Level ABG pH POC ABG pCO2 POC ABG pO2 ABG pO2 ABG HCO3 ABG O2 Saturation ABG Base Excess ABG Hemoglobin ABG Oxyhemoglobin VBG pH ABG Sodium ABG Potassium ABG Glucose Oxyhemoglobin Sodium 134 L Potassium 5.5 H Chloride Carbon Dioxide BUN 97 H Creatinine 2.2 H Glucose 149 H POC Glucose 142 H 146 H Lactic Acid Calcium Ferritin AST Alkaline Phosphatase Magnesium 2.60 H Lactate Dehydrogenase Total Creatine Kinase CK-MB (CK-2) C-Reactive Protein Total Protein Albumin Troponin T HDL Cholesterol Arterial Blood Glucose Urine WBC (Auto) Urine Creatinine Urine Total Protein Phenytoin Coronavirus (PCR) Crossmatch 07/24/20 07/24/20 07/25/20 18:12 21:00 00:08 WBC RBC Hgb Hct MCHC RDW Lymph % (Auto) [place] % (Auto) Eos % (Auto) Lymph # [place] # Lymph # (Auto) [place] # (Auto) Eos # (Auto) Seg Neutrophils % Seg Neuts % (Manual) Lymphocytes % (Manual) Seg Neutrophils # Seg Neutrophils # Man Lymphocytes # (Manual) Monocytes % (Manual) Eosinophils % (Manual) Monocytes # (Manual) Eosinophils # (Manual) D-Dimer Heparin Anti-Xa Level ABG pH POC ABG pCO2 POC ABG pO2 ABG pO2 ABG HCO3 ABG O2 Saturation ABG Base Excess ABG Hemoglobin ABG Oxyhemoglobin VBG pH ABG Sodium ABG Potassium ABG Glucose Oxyhemoglobin Sodium Potassium Chloride Carbon Dioxide BUN Creatinine Glucose POC Glucose 182 H 170 H 129 H Lactic Acid Calcium Ferritin AST Alkaline Phosphatase Magnesium Lactate Dehydrogenase Total Creatine Kinase CK-MB (CK-2) C-Reactive Protein Total Protein Albumin Troponin T HDL Cholesterol Arterial Blood Glucose Urine WBC (Auto) Urine Creatinine Urine Total Protein Phenytoin Coronavirus (PCR) Crossmatch 07/25/20 07/25/20 07/25/20 04:24 04:24 12:19 WBC RBC 2.51 L Hgb 7.5 L Hct 22.3 L MCHC RDW 17.4 H Lymph % (Auto) [place] % (Auto) Eos % (Auto) Lymph # [place] # Lymph # (Auto) [place] # (Auto) Eos # (Auto) Seg Neutrophils % Seg Neuts % (Manual) Lymphocytes % (Manual) Seg Neutrophils # Seg Neutrophils # Man Lymphocytes # (Manual) Monocytes % (Manual) Eosinophils % (Manual) Monocytes # (Manual) Eosinophils # (Manual) D-Dimer Heparin Anti-Xa Level ABG pH POC ABG pCO2 POC ABG pO2 ABG pO2 ABG HCO3 ABG O2 Saturation ABG Base Excess ABG Hemoglobin ABG Oxyhemoglobin VBG pH ABG Sodium ABG Potassium ABG Glucose Oxyhemoglobin Sodium 132 L Potassium Chloride 95.1 L Carbon Dioxide 21 L BUN 95 H Creatinine 2.5 H Glucose 108 H POC Glucose 122 H Lactic Acid Calcium Ferritin AST Alkaline Phosphatase Magnesium Lactate Dehydrogenase Total Creatine Kinase CK-MB (CK-2) C-Reactive Protein Total Protein Albumin Troponin T HDL Cholesterol Arterial Blood Glucose Urine WBC (Auto) Urine Creatinine Urine Total Protein Phenytoin Coronavirus (PCR) Crossmatch 07/25/20 07/25/20 07/26/20 18:11 23:24 04:22 WBC RBC Hgb Hct MCHC RDW Lymph % (Auto) [place] % (Auto) Eos % (Auto) Lymph # [place] # Lymph # (Auto) [place] # (Auto) Eos # (Auto) Seg Neutrophils % Seg Neuts % (Manual) Lymphocytes % (Manual) Seg Neutrophils # Seg Neutrophils # Man Lymphocytes # (Manual) Monocytes % (Manual) Eosinophils % (Manual) Monocytes # (Manual) Eosinophils # (Manual) D-Dimer Heparin Anti-Xa Level ABG pH POC ABG pCO2 POC ABG pO2 ABG pO2 ABG HCO3 ABG O2 Saturation ABG Base Excess ABG Hemoglobin ABG Oxyhemoglobin VBG pH ABG Sodium ABG Potassium ABG Glucose Oxyhemoglobin Sodium 132 L Potassium Chloride 96.2 L Carbon Dioxide 21 L BUN 99 H Creatinine 2.5 H Glucose 132 H POC Glucose 137 H 117 H Lactic Acid Calcium 8.2 L Ferritin AST Alkaline Phosphatase Magnesium Lactate Dehydrogenase Total Creatine Kinase CK-MB (CK-2) C-Reactive Protein Total Protein Albumin Troponin T HDL Cholesterol Arterial Blood Glucose Urine WBC (Auto) Urine Creatinine Urine Total Protein Phenytoin Coronavirus (PCR) Crossmatch 07/26/20 07/26/20 07/26/20 05:58 12:21 17:31 WBC RBC Hgb Hct MCHC RDW Lymph % (Auto) [place] % (Auto) Eos % (Auto) Lymph # [place] # Lymph # (Auto) [place] # (Auto) Eos # (Auto) Seg Neutrophils % Seg Neuts % (Manual) Lymphocytes % (Manual) Seg Neutrophils # Seg Neutrophils # Man Lymphocytes # (Manual) Monocytes % (Manual) Eosinophils % (Manual) Monocytes # (Manual) Eosinophils # (Manual) D-Dimer Heparin Anti-Xa Level ABG pH POC ABG pCO2 POC ABG pO2 ABG pO2 ABG HCO3 ABG O2 Saturation ABG Base Excess ABG Hemoglobin ABG Oxyhemoglobin VBG pH ABG Sodium ABG Potassium ABG Glucose Oxyhemoglobin Sodium Potassium Chloride Carbon Dioxide BUN Creatinine Glucose POC Glucose 110 H 142 H 180 H Lactic Acid Calcium Ferritin AST Alkaline Phosphatase Magnesium Lactate Dehydrogenase Total Creatine Kinase CK-MB (CK-2) C-Reactive Protein Total Protein Albumin Troponin T HDL Cholesterol Arterial Blood Glucose Urine WBC (Auto) Urine Creatinine Urine Total Protein Phenytoin Coronavirus (PCR) Crossmatch 07/26/20 07/27/20 07/27/20 23:36 03:36 05:36 WBC RBC 2.49 L Hgb 7.3 L Hct 22.2 L MCHC RDW 17.2 H Lymph % (Auto) 11.0 L [place] % (Auto) 11.7 H Eos % (Auto) Lymph # [place] # Lymph # (Auto) 0.8 L [place] # (Auto) 0.9 H Eos # (Auto) Seg Neutrophils % 72.3 H Seg Neuts % (Manual) Lymphocytes % (Manual) Seg Neutrophils # Seg Neutrophils # Man Lymphocytes # (Manual) Monocytes % (Manual) Eosinophils % (Manual) Monocytes # (Manual) Eosinophils # (Manual) D-Dimer Heparin Anti-Xa Level ABG pH POC ABG pCO2 POC ABG pO2 ABG pO2 ABG HCO3 ABG O2 Saturation ABG Base Excess ABG Hemoglobin ABG Oxyhemoglobin VBG pH ABG Sodium ABG Potassium ABG Glucose Oxyhemoglobin Sodium Potassium Chloride Carbon Dioxide BUN Creatinine Glucose POC Glucose 162 H 118 H Lactic Acid Calcium Ferritin AST Alkaline Phosphatase Magnesium Lactate Dehydrogenase Total Creatine Kinase CK-MB (CK-2) C-Reactive Protein Total Protein Albumin Troponin T HDL Cholesterol Arterial Blood Glucose Urine WBC (Auto) Urine Creatinine Urine Total Protein Phenytoin Coronavirus (PCR) Crossmatch 07/27/20 07/27/20 07/27/20 05:36 12:19 17:36 WBC RBC Hgb Hct MCHC RDW Lymph % (Auto) [place] % (Auto) Eos % (Auto) Lymph # [place] # Lymph # (Auto) [place] # (Auto) Eos # (Auto) Seg Neutrophils % Seg Neuts % (Manual) Lymphocytes % (Manual) Seg Neutrophils # Seg Neutrophils # Man Lymphocytes # (Manual) Monocytes % (Manual) Eosinophils % (Manual) Monocytes # (Manual) Eosinophils # (Manual) D-Dimer Heparin Anti-Xa Level ABG pH POC ABG pCO2 POC ABG pO2 ABG pO2 ABG HCO3 ABG O2 Saturation ABG Base Excess ABG Hemoglobin ABG Oxyhemoglobin VBG pH ABG Sodium ABG Potassium ABG Glucose Oxyhemoglobin Sodium 135 L Potassium 5.3 H Chloride Carbon Dioxide 21 L BUN 103 H Creatinine 2.6 H Glucose 113 H POC Glucose 131 H 151 H Lactic Acid Calcium 8.1 L Ferritin AST Alkaline Phosphatase Magnesium Lactate Dehydrogenase Total Creatine Kinase CK-MB (CK-2) C-Reactive Protein Total Protein Albumin Troponin T HDL Cholesterol Arterial Blood Glucose Urine WBC (Auto) Urine Creatinine Urine Total Protein Phenytoin Coronavirus (PCR) Crossmatch 07/27/20 07/28/20 07/28/20 23:29 04:30 04:30 WBC RBC 2.50 L Hgb 7.3 L Hct 22.2 L MCHC RDW 17.3 H Lymph % (Auto) 8.7 L [place] % (Auto) 8.3 H Eos % (Auto) Lymph # [place] # Lymph # (Auto) 0.7 L [place] # (Auto) Eos # (Auto) Seg Neutrophils % 79.1 H Seg Neuts % (Manual) Lymphocytes % (Manual) Seg Neutrophils # Seg Neutrophils # Man Lymphocytes # (Manual) Monocytes % (Manual) Eosinophils % (Manual) Monocytes # (Manual) Eosinophils # (Manual) D-Dimer Heparin Anti-Xa Level ABG pH POC ABG pCO2 POC ABG pO2 ABG pO2 ABG HCO3 ABG O2 Saturation ABG Base Excess ABG Hemoglobin ABG Oxyhemoglobin VBG pH ABG Sodium ABG Potassium ABG Glucose Oxyhemoglobin Sodium 135 L Potassium 5.2 H Chloride 96.8 L Carbon Dioxide 20 L BUN 107 H Creatinine 2.9 H Glucose POC Glucose 124 H Lactic Acid Calcium 8.2 L Ferritin AST Alkaline Phosphatase Magnesium 2.70 H Lactate Dehydrogenase Total Creatine Kinase CK-MB (CK-2) C-Reactive Protein Total Protein Albumin Troponin T HDL Cholesterol Arterial Blood Glucose Urine WBC (Auto) Urine Creatinine Urine Total Protein Phenytoin Coronavirus (PCR) Crossmatch 07/28/20 07/29/20 07/29/20 17:35 00:11 06:45 WBC RBC Hgb Hct MCHC RDW Lymph % (Auto) [place] % (Auto) Eos % (Auto) Lymph # [place] # Lymph # (Auto) [place] # (Auto) Eos # (Auto) Seg Neutrophils % Seg Neuts % (Manual) Lymphocytes % (Manual) Seg Neutrophils # Seg Neutrophils # Man Lymphocytes # (Manual) Monocytes % (Manual) Eosinophils % (Manual) Monocytes # (Manual) Eosinophils # (Manual) D-Dimer Heparin Anti-Xa Level ABG pH POC ABG pCO2 POC ABG pO2 ABG pO2 ABG HCO3 ABG O2 Saturation ABG Base Excess ABG Hemoglobin ABG Oxyhemoglobin VBG pH ABG Sodium ABG Potassium ABG Glucose Oxyhemoglobin Sodium Potassium Chloride Carbon Dioxide BUN Creatinine Glucose POC Glucose 146 H 143 H 179 H Lactic Acid Calcium Ferritin AST Alkaline Phosphatase Magnesium Lactate Dehydrogenase Total Creatine Kinase CK-MB (CK-2) C-Reactive Protein Total Protein Albumin Troponin T HDL Cholesterol Arterial Blood Glucose Urine WBC (Auto) Urine Creatinine Urine Total Protein Phenytoin Coronavirus (PCR) Crossmatch 07/29/20 07/29/20 07/29/20 11:54 13:01 13:01 WBC RBC 2.40 L Hgb 7.1 L Hct 20.9 L MCHC RDW 17.5 H Lymph % (Auto) [place] % (Auto) Eos % (Auto) Lymph # [place] # Lymph # (Auto) [place] # (Auto) Eos # (Auto) Seg Neutrophils % Seg Neuts % (Manual) 86.0 H Lymphocytes % (Manual) 6.0 L Seg Neutrophils # Seg Neutrophils # Man 8.9 H Lymphocytes # (Manual) 0.6 L Monocytes % (Manual) 8.0 H Eosinophils % (Manual) Monocytes # (Manual) Eosinophils # (Manual) D-Dimer Heparin Anti-Xa Level ABG pH POC ABG pCO2 POC ABG pO2 ABG pO2 ABG HCO3 ABG O2 Saturation ABG Base Excess ABG Hemoglobin ABG Oxyhemoglobin VBG pH ABG Sodium ABG Potassium ABG Glucose Oxyhemoglobin Sodium 129 L Potassium Chloride 92.9 L Carbon Dioxide BUN 112 H Creatinine 3.0 H Glucose 142 H POC Glucose 170 H Lactic Acid Calcium 7.9 L Ferritin AST Alkaline Phosphatase Magnesium Lactate Dehydrogenase Total Creatine Kinase CK-MB (CK-2) C-Reactive Protein Total Protein Albumin Troponin T HDL Cholesterol Arterial Blood Glucose Urine WBC (Auto) Urine Creatinine Urine Total Protein Phenytoin Coronavirus (PCR) Crossmatch 07/29/20 07/30/20 07/30/20 22:45 05:01 11:45 WBC RBC Hgb Hct MCHC RDW Lymph % (Auto) [place] % (Auto) Eos % (Auto) Lymph # [place] # Lymph # (Auto) [place] # (Auto) Eos # (Auto) Seg Neutrophils % Seg Neuts % (Manual) Lymphocytes % (Manual) Seg Neutrophils # Seg Neutrophils # Man Lymphocytes # (Manual) Monocytes % (Manual) Eosinophils % (Manual) Monocytes # (Manual) Eosinophils # (Manual) D-Dimer Heparin Anti-Xa Level ABG pH POC ABG pCO2 POC ABG pO2 ABG pO2 ABG HCO3 ABG O2 Saturation ABG Base Excess ABG Hemoglobin ABG Oxyhemoglobin VBG pH ABG Sodium ABG Potassium ABG Glucose Oxyhemoglobin Sodium Potassium Chloride Carbon Dioxide BUN Creatinine Glucose POC Glucose 129 H 150 H 130 H Lactic Acid Calcium Ferritin AST Alkaline Phosphatase Magnesium Lactate Dehydrogenase Total Creatine Kinase CK-MB (CK-2) C-Reactive Protein Total Protein Albumin Troponin T HDL Cholesterol Arterial Blood Glucose Urine WBC (Auto) Urine Creatinine Urine Total Protein Phenytoin Coronavirus (PCR) Crossmatch Chest x-ray: pending Allied health notes reviewed: nursing
[2020-07-30] MEDS: INSULIN GLARGINE 100 UNITS/ML SUB-Q SCH (22:13)
[2020-07-31] MEDS: HEPARIN 5,000 UNIT/1 ML VIAL SUB-Q SCH ×3 (06:01→21:58)
[2020-07-31] MEDS: INSULIN LISPRO 100 UNIT/ML VIAL 3 mL SUB-Q SCH ×4 (06:07→17:52)
[2020-07-31] MEDS: cloNIDine 0.1 MG TAB PO SCH ×3 (07:21→23:01)
[2020-07-31] MEDS: hydrALAZINE 100 MG TAB PO SCH ×3 (07:57→22:03)
--- NOTE | 2020-07-31 10:10 | Progress Note ---
Assessment and Plan Assessment and plan: 64 YO Female with a medical history of HTN, Diastolic CHF, Pulmonary HTN, DM, Obesity Hypoventilation Syndrome presents to ED for evaluation of shortness of breath. As per staff, the EMS was notified for difficulty breathing. Upon arrival to the patient's home the patient was found to be in distress and was subsequently transported to [facility] for further evaluation and care. In route to [facility] the patient developed cardiac arrest and was treated in accordance with ACLS protocol with return of ROSC. Patient was seen and evaluated in the emergency department and was intubated and placed on ventilatory support. Patient admitted to ICU. Critical care team consulted in ED. She was found to have COVID-19 infection and was started on steroids and remdesivir. ID was consulted. Cardiology was consulted for her systolic heart failure and cardiac arrest. Patient completed treatment for COVID-19, then develop superimposed bacterial pneumonia with Klebsiella. She is now extubated, 06/12/2020 but remains confused and requiring high flow O2 and intermittent BiPAP. Patient had another cardiac arrest reintubated 06/26/2020, currently in ICU vent dependent, unable to do trach and PEG due to persistent COVID-19 positive state, as well as anoxic brain injury, unable to get MRI , neurology following. Assessment and plan: 05/28/2020 COVID-19 test positive 06/29/2020 COVID-19 test positive 07/14/2020 COVID-19 test positive --Acute hypoxemic respiratory failure; vent dependent intubated on admission, extubated on 06/12/20 then placed on high flow o2 patient developed another respiratory arrest on 06/26 - reintubated Patient not tolerating weaning parameters CC following, Surgery evaluated the patient for trach and PEG COVID-19 test positive x3, trach and PEG pending neuro evaluation to evaluate severity of anoxic brain injury -- Hypertension; well controlled Increase hydralazine dose to 75 mg 3 times a day Continue amlodipine, coreg, clonidine and hydralazine And minoxidil, closely monitor blood pressures PRN labetalol --s/p cardiopulmonary arrest on admission, 06/26 and 07/01, s/p CPR per ACLS protocol, refer to code sheet --Possible anoxic brain injury, neurology consulted, neuro requested MRI brain, EEG MRI brain could not be done due to body habitus, EEG not done --Seizures seizure precautions; continue Keppra, follow EEG neurology following --Acute renal failure : creatinine 2.4-2.5-2.9-1.7 --Acute renal failure : creatinine 2.4-2.5-2.9-1.7 Vasomotor nephropathy, gentle hydration Avoid nephrotoxins, monitor renal function Reconsult nephrology if needed --Rectal bleeding; resolved --Acute blood loss anemia; total 3 units PRBC transfused Closely monitor H&H, GI following, no plans of endoscopy --Severe sepsis; completed antibiotics per ID persistently positive for COVID-19 and Klebsiella pneumoniae --COVID-19 b/l PNA Completed remdesivir on 06/02 Completed dexamethasone - Last dose 06/07 COVID 19 test positive x 3 during this admission --Superficial left cephalic vein DVT/elevated D-dimers[COVID 19] Patient initially started on heparin drip from 05/29/20 D-dimers improved [phone] treated with Eliquis 5 mg twice a day for 1 week[per ID] stop date 06/26/2020 -- Acute toxic metabolic encephalopathy, POA likely from sepsis and s/p cardiac arrest with possible anoxic injury -- Acute renal failure: likely ATN avoid nephrotoxins, reconsult nephrology if no improvement --Klebsiella pneumonia: ID evaluated completed second round of 5 days of cefepime on 07/04/2020 --Acute on chronic systolic heart failure Cardiology following. Ef 45% -- Coffee ground emesis -Stress ulcers Possible stress ulcers, On PPI H/H again dropped - transfuse GI evaluated --Transaminitis. Etiology likely from COVID-19. cont to monitor --Hyperkalemia; calcium gluconate, Kayexalate, monitor electrolytes --Shock; fluid bolus, Levophed per protocol Patient critically ill poor prognosis Currently patient is hypertensive -- DVT prophylaxis Eliquis, SCD to bilateral lower extremities while in bed -- Advance care planning Patient is critically ill with multiple medical problems Poor prognosis, family updated and requesting full code The high probability of a clinically significant, sudden or life threatening deterioration of the [CVS, renal, respiratory, HVAC TECHNICIAN] system(s) required my full and direct attention, intervention and personal management. The aggregate critical care time was [35] minutes. This time is in addition to time spent performing reported procedures but includes the following: [x] Data Review and interpretation [x] Patient assessment and monitoring of vital signs [x] Documentation [x] Medication orders and management 07/11/2020. Patient currently on mechanical ventilation AC/PRVC with rate of 12, tidal volume 450, FiO2 30% and PEEP of 6 07/12/2020. Patient placed on CPAP with pressure support of 10 and tolerating well. Continue PSB trials as tolerated. 07/13/2020. Patient currently with AC mode rate 12, tidal volume 450, FiO2 30% and PEEP of 6. Surgery has been consulted for trach and PEG placement. Recall nephrology for renal insufficiency. 07/14/20; surgery evaluated for trach and PEG , pending call with test which is is positive today COVID-19 test positive x3 since admission 07/16; trach and PEG pending neuro evaluation 07/17; vent dependent, trach PEG pending neuro evaluation, pending MRI EEG study[already ordered] 07/18; unable to do MRI, due to body habitus, morbid obesity, radiology consult Patient critically ill very poor prognosis 07/19; remains intubated on vent, clinically no change 07/20; unable to wean, needs trach and PEG, need MRI , unable to do due to body habitus 07/21; clinically no change, remains intubated on ventilatory support 07/22; I recommend family meeting, to discuss the goals of treatment, discussed with case management 07/23; patient's blood pressures in the lower range, will hold antihypertensives, fluid bolus, if no improvement Levophed per protocol 07/24: Patient remains critically ill, unable to obtain MRI at this facility and unstable for transfer, Will reconsult Nephrology as creatinine now worse, with worsening Hypotension and Hyperkalemia- Overnight the patient required pressors Secondary to Hypotension, Will place PICC line. Will give kayxalate, continue to hold all BP meds. Hyponatermia improving. 07/24; patient remains to critically ill, nephrology consult appreciated, creatinine is worsening. Hypotension resolved with. Still patient is hypernatremic 07/26; patient is hypertensive and her blood pressure medications were resumed and as needed medications also started. Patient is being followed by nephrology for hyponatremia and AVANI. Patient has anemia. We will check labs in the morning. 07/27; patient is still intubated and on mechanical ventilation. Followed by pulmonary critical care. Nephrology is considering to dialyze the patient after discussing with the family. 07/28; patient is intubated and on mechanical ventilation, patient is nonresponsive without pressors. Creatinine is trending up and nephrology is considering to dialysis. I called her son Toño at [phone] and discussed about the prognosis of the patient and I gave the option of hospice care/withdraw care and he said he is going to talk to his sister and will get back to me. 07/29/2020;patient is intubated and on mechanical ventilation, patient is nonresponsive without pressors. Creatinine is trending up and nephrology is considering to dialysis. I called her son Toño on 07/28 at [phone] and discussed about the prognosis of the patient and I gave the option of hospice care/withdraw care and he said he is going to talk to his sister and will get back to me. Nephrology discussed with the son this morning and the son said he want aggressive management and she is going to be started on dialysis. 07/30; patient's son wants hospice. Declined dialysis. 07/31; plan was to send the patient to hospice but her son does not want to sign AND. Family declined dialysis. Going to talk to the son. History Interval history: Patient was seen and evaluated this morning Patient is intubated and on mechanical ventilation Not responding Hospitalist Physical - Physical exam Narrative exam: Intubated and on mechanical ventilation The patient is morbidly obese. Vital signs as documented. Head exam is unremarkable. No scleral icterus . Neck is without jugular venous distension, thyromegaly, or carotid bruits. Lungs are clear to auscultation. Cardiac exam reveals regular rate and Rhythm. Abdominal exam reveals normal bowel sounds, nontender, no organomegaly. Extremities are nonedematous and both femoral and pedal pulses are normal. HVAC TECHNICIAN: Intubated. - Constitutional Vitals: Temp Pulse Resp BP Pulse Ox 97.6 F 57 L 12 200/53 98 07/31/20 08:00 07/31/20 09:01 07/31/20 09:01 07/31/20 09:01 07/31/20 09:01 General appearance: Present: no acute distress, well-nourished, obese (Morbidly obese), other (Intubated on ventilatory support) HEART Score - HEART Score Troponin: Troponin T 0.067 ng/mL (0.00-0.029) H 07/01/20 06:01 Results - Labs CBC & Chem 7: 07/29/20 13:01 07/29/20 13:01 Labs: Laboratory Last Values WBC 10.3 K/mm3 (4.5-11.0) 07/29/20 13:01 RBC 2.40 M/mm3 (3.65-5.03) L 07/29/20 13:01 Hgb 7.1 gm/dl (10.1-14.3) L 07/29/20 13:01 Hct 20.9 % (30.3-42.9) L 07/29/20 13:01 MCV 87 fl (79-97) 07/29/20 13:01 MCH 30 pg (28-32) 07/29/20 13:01 MCHC 34 % (30-34) 07/29/20 13:01 RDW 17.5 % (13.2-15.2) H 07/29/20 13:01 Plt Count 430 K/mm3 (140-440) 07/29/20 13:01 Lymph % (Auto) 8.7 % (13.4-35.0) L 07/28/20 04:30 [place] % (Auto) 8.3 % (0.0-7.3) H 07/28/20 04:30 Eos % (Auto) 3.3 % (0.0-4.3) 07/28/20 04:30 Baso % (Auto) 0.6 % (0.0-1.8) 07/28/20 04:30 Lymph # (Auto) 0.7 K/mm3 (1.2-5.4) L 07/28/20 04:30 [place] # (Auto) 0.7 K/mm3 (0.0-0.8) 07/28/20 04:30 Eos # (Auto) 0.3 K/mm3 (0.0-0.4) 07/28/20 04:30 Baso # (Auto) 0.1 K/mm3 (0.0-0.1) 07/28/20 04:30 Add Manual Diff Complete 07/29/20 13:01 Total Counted 100 07/29/20 13:01 Seg Neutrophils % 79.1 % (40.0-70.0) H 07/28/20 04:30 Seg Neuts % (Manual) 86.0 % (40.0-70.0) H 07/29/20 13:01 Band Neutrophils % 0 % 07/29/20 13:01 Lymphocytes % (Manual) 6.0 % (13.4-35.0) L 07/29/20 13:01 Reactive Lymphs % (Man) 0 % 07/29/20 13:01 Monocytes % (Manual) 8.0 % (0.0-7.3) H 07/29/20 13:01 Eosinophils % (Manual) 0 % (0.0-4.3) 07/29/20 13:01 Basophils % (Manual) 0 % (0.0-1.8) 07/29/20 13:01 Metamyelocytes % 0 % 07/29/20 13:01 Myelocytes % 0 % 07/29/20 13:01 Promyelocytes % 0 % 07/29/20 13:01 Blast Cells % 0 % 07/29/20 13:01 Nucleated RBC % Not Reportable 07/29/20 13:01 Seg Neutrophils # 6.4 K/mm3 (1.8-7.7) 07/28/20 04:30 Seg Neutrophils # Man 8.9 K/mm3 (1.8-7.7) H 07/29/20 13:01 Band Neutrophils # 0.0 K/mm3 07/29/20 13:01 Lymphocytes # (Manual) 0.6 K/mm3 (1.2-5.4) L 07/29/20 13:01 Abs React Lymphs (Man) 0.0 K/mm3 07/29/20 13:01 Monocytes # (Manual) 0.8 K/mm3 (0.0-0.8) 07/29/20 13:01 Eosinophils # (Manual) 0.0 K/mm3 (0.0-0.4) 07/29/20 13:01 Basophils # (Manual) 0.0 K/mm3 (0.0-0.1) 07/29/20 13:01 Metamyelocytes # 0.0 K/mm3 07/29/20 13:01 Myelocytes # 0.0 K/mm3 07/29/20 13:01 Promyelocytes # 0.0 K/mm3 07/29/20 13:01 Blast Cells # 0.0 K/mm3 07/29/20 13:01 WBC Morphology Not Reportable 07/29/20 13:01 Hypersegmented Neuts Not Reportable 07/29/20 13:01 Hyposegmented Neuts Not Reportable 07/29/20 13:01 Hypogranular Neuts Not Reportable 07/29/20 13:01 Smudge Cells Not Reportable 07/29/20 13:01 Toxic Granulation Not Reportable 07/29/20 13:01 Toxic Vacuolation Not Reportable 07/29/20 13:01 Dohle Bodies Not Reportable 07/29/20 13:01 Pelger-Huet Anomaly Not Reportable 07/29/20 13:01 Sanjuanita Rods Not Reportable 07/29/20 13:01 Platelet Estimate Consistent w auto 07/29/20 13:01 Clumped Platelets Not Reportable 07/29/20 13:01 Plt Clumps, EDTA Not Reportable 07/29/20 13:01 Large Platelets Not Reportable 07/29/20 13:01 Giant Platelets Not Reportable 07/29/20 13:01 Platelet Satelliting Not Reportable 07/29/20 13:01 Plt Morphology Comment Not Reportable 07/29/20 13:01 RBC Morphology Normal 07/29/20 13:01 Dimorphic RBCs Not Reportable 07/29/20 13:01 Polychromasia Not Reportable 07/29/20 13:01 Hypochromasia Not Reportable 07/29/20 13:01 Poikilocytosis Not Reportable 07/29/20 13:01 Anisocytosis Not Reportable 07/29/20 13:01 Microcytosis Not Reportable 07/29/20 13:01 Macrocytosis Not Reportable 07/29/20 13:01 Spherocytes Not Reportable 07/29/20 13:01 Pappenheimer Bodies Not Reportable 07/29/20 13:01 Sickle Cells Not Reportable 07/29/20 13:01 Target Cells Not Reportable 07/29/20 13:01 Tear Drop Cells Not Reportable 07/29/20 13:01 Ovalocytes Not Reportable 07/29/20 13:01 Helmet Cells Not Reportable 07/29/20 13:01 [place] Bodies Not Reportable 07/29/20 13:01 [place] Rings Not Reportable 07/29/20 13:01 [place] Cells Not Reportable 07/29/20 13:01 Bite Cells Not Reportable 07/29/20 13:01 Crenated Cell Not Reportable 07/29/20 13:01 Elliptocytes Not Reportable 07/29/20 13:01 Acanthocytes (Spur) Not Reportable 07/29/20 13:01 Rouleaux Not Reportable 07/29/20 13:01 Hemoglobin C Crystals Not Reportable 07/29/20 13:01 Schistocytes Not Reportable 07/29/20 13:01 Malaria parasites Not Reportable 07/29/20 13:01 Kev Bodies Not Reportable 07/29/20 13:01 Hem Pathologist Commnt No 07/29/20 13:01 PT 14.2 Sec. (12.2-14.9) 05/29/20 15:10 INR 1.08 (0.87-1.13) 05/29/20 15:10 APTT 27.2 Sec. (24.2-36.6) 05/29/20 15:10 D-Dimer 2310.15 ng/mlDDU (0-234) H 06/29/20 14:45 Heparin Anti-Xa Level 0.34 U.I./ml (0.3-0.7) 06/19/20 10:46 ABG pH 7.382 (7.320-7.450) 07/18/20 04:24 POC ABG pCO2 44.1 mmHg (32.0-48.0) 07/18/20 04:24 ABG pCO2 47.0 mm Hg 07/05/20 13:05 ABG Oxyhemoglobin 92.6 (94-98) L 06/23/20 12:34 POC ABG pO2 86.8 mmHg (83-108) 07/18/20 04:24 ABG pO2 78.3 mm Hg (80.0-90.0) L 07/05/20 13:05 POC ABG HCO3 25.6 07/18/20 04:24 ABG HCO3 23.4 mmol/L (20.0-26.0) 07/05/20 13:05 ABG O2 Saturation 96.1 % (95.0-99.0) 07/05/20 13:05 ABG O2 Content 0.3 (0.0-44) 07/05/20 13:05 POC ABG Base Excess 0.4 07/18/20 04:24 ABG Base Excess -2.6 mmol/L (-2.0-3.0) L 07/05/20 13:05 ABG Hemoglobin 8.8 (12.0-17.5) L 07/18/20 04:24 ABG Carboxyhemoglobin 1.7 % (0.0-5.0) 07/05/20 13:05 ABG Methemoglobin 0.2 % (0.0-1.5) 07/05/20 13:05 VBG pH 7.152 (7.320-7.420) L* 05/28/20 13:47 ABG Sodium 131.6 mmol/L (136.0-145.0) L 07/18/20 04:24 ABG Potassium 4.9 mmol/L (3.40-4.50) H 07/18/20 04:24 ABG Chloride 104.0 mmol/L (98-107) 07/18/20 04:24 ABG Glucose 131 mg/dL (65-95) H 07/18/20 04:24 Carboxyhemoglobin 0.5 (0.5-1.5) 06/23/20 12:34 Oxyhemoglobin 97.4 % (95.0-99.0) 07/05/20 13:05 FiO2 30.0 07/18/20 04:24 Sodium 129 mmol/L (137-145) L 07/29/20 13:01 Potassium 4.9 mmol/L (3.6-5.0) 07/29/20 13:01 Chloride 92.9 mmol/L (98-107) L 07/29/20 13:01 Carbon Dioxide 23 mmol/L (22-30) 07/29/20 13:01 Anion Gap 18 mmol/L 07/29/20 13:01 BUN 112 mg/dL (7-17) H 07/29/20 13:01 Creatinine 3.0 mg/dL (0.6-1.2) H 07/29/20 13:01 Estimated GFR 16 ml/min 07/29/20 13:01 BUN/Creatinine Ratio 37 % 07/29/20 13:01 Glucose 142 mg/dL (65-100) H 07/29/20 13:01 POC Glucose 152 mg/dL (70-105) H 07/31/20 05:43 Lactic Acid 0.60 mmol/L (0.7-2.0) L 06/27/20 05:00 Calcium 7.9 mg/dL (8.4-10.2) L 07/29/20 13:01 Ferritin 223.6 ng/mL (10.0-200.0) H 06/29/20 14:45 Magnesium 2.70 mg/dL (1.7-2.3) H 07/28/20 04:30 Lactate Dehydrogenase 367 units/L (91-180) H 06/29/20 14:45 Total Bilirubin 0.20 mg/dL (0.1-1.2) 07/23/20 19: AST 35 units/L (5-40) 07/23/20 19: ALT 14 units/L (7-56) 07/23/20 19: Alkaline Phosphatase 124 units/L (35-129) 07/23/20 19: C-Reactive Protein 3.60 mg/dL (0.00-1.30) H 06/29/20 14:45 Total Creatine Kinase 300 units/L (30-135) H 07/01/20 06:01 CK-MB (CK-2) 2.0 ng/mL (0.0-4.0) 07/01/20 06:01 CK-MB (CK-2) Rel Index 0.6 (0-4) 07/01/20 06:01 Troponin T 0.067 ng/mL (0.00-0.029) H 07/01/20 06:01 Total Protein 6.3 g/dL (6.3-8.2) 07/23/20 19: Albumin 2.2 g/dL (3.9-5) L 07/23/20 19: Albumin/Globulin Ratio 0.5 % 07/23/20 19:23 Triglycerides 142 mg/dL (2-149) 07/01/20 06:01 Cholesterol 137 mg/dL (50-199) 07/01/20 06:01 LDL Cholesterol Direct 62 mg/dL (50-130) 07/01/20 06:01 HDL Cholesterol 61 mg/dL (40-59) H 07/01/20 06:01 Cholesterol/HDL Ratio 2.24 % 07/01/20 06:01 Procalcitonin 0.18 ng/mL (<0.15) 07/14/20 04:55 Arterial Blood Glucose 131 mg/dL (65-95) H 07/18/20 04:24 Arterial Blood Ionized Calcium 5.1 mg/dL (4.6-5.3) 07/18/20 04:24 Urine Color Yellow (Yellow) 06/06/20 04:00 Urine Turbidity Cloudy (Clear) 06/06/20 04:00 Urine pH 5.0 (5.0-7.0) 06/06/20 04:00 Ur Specific [place] 1.012 (1.003-1.030) 06/06/20 04:00 Urine Protein 100 mg/dl mg/dL (Negative) 06/06/20 04:00 Urine Glucose (UA) 50 mg/dL (Negative) 06/06/20 04:00 Urine Ketones Neg mg/dL (Negative) 06/06/20 04:00 Urine Blood Sm (Negative) 06/06/20 04:00 Urine Nitrite Neg (Negative) 06/06/20 04:00 Urine Bilirubin Neg (Negative) 06/06/20 04:00 Urine Urobilinogen < 2.0 mg/dL (<2.0) 06/06/20 04:00 Ur Leukocyte Esterase Neg (Negative) 06/06/20 04:00 Urine WBC (Auto) 15.0 /HPF (0.0-6.0) H 06/06/20 04:00 Urine RBC (Auto) 23.0 /HPF (0.0-6.0) 06/06/20 04:00 U Epithel Cells (Auto) 8.0 /HPF (0-13.0) 06/06/20 04:00 Urine Bacteria (Auto) 2+ /HPF (Negative) 06/06/20 04:00 Amorphous Crystals 1+ 06/06/20 04:00 Hyaline Casts 16 /LPF 06/06/20 04:00 Urine Mucus 2+ /HPF 06/06/20 04:00 Urine Yeast (Budding) 2+ /HPF 06/03/20 Unknown Urine Creatinine 33.3 mg/dL (0.1-20.0) H 07/06/20 13:20 Urine Sodium 21 mmol/L 07/06/20 13:20 Urine Total Protein 196 mg/dL (5-11.8) H 06/06/20 04:00 Nasal Screen MRSA (PCR) Negative (Negative) 06/29/20 08:30 Phenytoin 9.4 ug/mL (10.0-20.0) L 07/24/20 04:29 Coronavirus (PCR) Positive (Negative) A 07/14/20 08:04 Hepatitis A IgM Ab Non-reactive (NonReactive) 07/29/20 13:01 Hep Bs Antigen Non-reactive (Negative) 07/29/20 13:01 Hep B Core IgM Ab Non-reactive (NonReactive) 07/29/20 13:01 Hepatitis C Antibody Non-reactive (NonReactive) 07/29/20 13:01 Blood Type A POSITIVE 07/05/20 02:30 Antibody Screen Negative 07/05/20 02:30 Crossmatch See Detail 07/05/20 02:30 - Diagnostic Impressions Diagnostic Impressions: Echocardiogram Limited Views 05/29/20 13:52 Transthoracic Echocardiogram Indication: Pulm Embolus BP: 169/76 HR: 85 Conclusions *Limited study for RV size post cardiopulmonar arrest. *RV is only slightly dilated, no significant difference from prior echo 05/13/2020. *Global left ventricular systolic function is at the lower limits of normal. *The estimated ejection fraction is 45-50%. *Mild to moderate concentric left ventricular hypertrophy is observed. *The left and right atria are both mild to moderately dilated. Findings Left Ventricle: The left ventricular chamber size is mildly dilated. Mild to moderate concentric left ventricular hypertrophy is observed. Global left ventricular systolic function is at the lower limits of normal. The estimated ejection fraction is 45-50%. Left Atrium: The left atrium is mild to moderately dilated. Right Ventricle: The right ventricle is slightly dilated. Right Atrium: The right atrium is mild to moderately dilated. Aortic Valve: The aortic valve leaflets are moderately thickened. Mitral Valve: There is mitral annular calcification. The mitral valve leaflets are moderately thickened. Tricuspid Valve: The tricuspid valve leaflets are mildly thickened. Pericardium: A trivial pericardial effusion is visualized. NDUM: 05/29/20 1808 Amended Report Transthoracic Echocardiogram Indication: Pulm Embolus BP: 169/76 HR: 85 Conclusions *Limited study for RV size post cardiopulmonary arrest. *RV is only slightly dilated, no significant difference from prior echo 05/13/2020. *Global left ventricular systolic function is at the lower limits of normal. *The estimated ejection fraction is 45-50%. *Mild to moderate concentric left ventricular hypertrophy is observed. *The left and right atria are both mild to moderately dilated. Findings Left Ventricle: The left ventricular chamber size is mildly dilated. Mild to moderate concentric left ventricular hypertrophy is observed. Global left ventricular systolic function is at the lower limits of normal. The estimated ejection fraction is 45-50%. Left Atrium: The left atrium is mild to moderately dilated. Right Ventricle: The right ventricle is slightly dilated. Right Atrium: The right atrium is mild to moderately dilated. Aortic Valve: The aortic valve leaflets are moderately thickened. Mitral Valve: There is mitral annular calcification. The mitral valve leaflets are moderately thickened. Tricuspid Valve: The tricuspid valve leaflets are mildly thickened. Pericardium: A trivial pericardial effusion is visualized. Helm/IV: Voiding Method Indwelling Catheter IV Catheter Type [Left Forearm INT / Saline Lock ] IV Catheter Type [Left Wrist] INT / Saline Lock IV Catheter Type [Left Upper Peripheral IV arm] IV Catheter Type [Right CVL Internal Jugular] IV Catheter Type [Right Hand] INT / Saline Lock IV Catheter Type [Right Wrist] Not found on patient IV Catheter Type [Left Hand] INT / Saline Lock IV Catheter Type [Left INT / Saline Lock Antecubital] IV Catheter Type [Right Peripheral IV Forearm] IV Catheter Type [Left Leg] Intra-osseous Active Medications - Current Medications Current Medications: Generic Name Dose Route Start Last Admin Trade Name Freq PRN Reason Stop Dose Admin Acetaminophen 650 mg 06/09/20 10:57 06/29/20 21:18 Tylenol FEEDTUBE 650 mg Q6H PRN Administration Fever >101 Amlodipine Besylate 10 mg 06/02/20 11:00 07/30/20 10:24 Amlodipine PO Not Given DAILY NELSON Lipase/Protease/Amylase 1 each 05/29/20 13:39 07/07/20 10:[address] 10,500 Unit FEEDTUBE 1 each PRN PRN Administration For Clogged Feeding Tube Carvedilol 25 mg 07/20/20 11:00 07/30/20 22:05 Coreg PO 25 mg Q12HR NELSON Administration Clonidine HCl 0.1 mg 07/26/20 15:00 07/31/20 07:21 Catapres PO Not Given Q8H NELSON Epoetin Javon 10,000 unit 07/29/20 11:29 Procrit IV SCOTTY PRN hemodialysis Glycopyrrolate 2 mg 06/09/20 14:00 07/30/20 20:44 Glycopyrrolate PO 2 mg TID NELSON Administration Heparin Sodium (Porcine) 5,000 unit 06/30/20 14:00 07/31/20 06:01 Heparin SUB-Q 5,000 unit Q8HR NELSON Administration Heparin Sodium (Porcine) 5,000 unit 07/29/20 11:29 Heparin IV SCOTTY PRN hemodialysis Hydralazine HCl 100 mg 07/14/20 14:00 07/31/20 07:57 Apresoline PO 100 mg TID [facility] Administration Hydrophilic Ointment 1 applic 05/28/20 13:49 Vaseline Lip Therapy TP Q2HR PRN Dry Lips Norepinephrine 4 mg in 250 mls @ 7.5 mls/hr 07/23/20 20:00 07/24/20 07:15 Levophed Drip 4 Mg/Ns 250 Ml IV 0 mcg/min TITR NELSON 0 mls/hr Titration Protocol 2 MCG/MIN Dopamine HCl/Dextrose 800 mg in 250 mls @ 4.613 mls/hr 07/24/20 11:30 Intropin Drip 800 Mg/D5w 250 Ml IV TITR NELSON Protocol 2 MCG/KG/MIN Sodium Chloride 100 mls @ 999 mls/hr 07/29/20 11:29 Nacl 0.9% IV SCOTTY PRN Hypotension Insulin Glargine 10 units 06/08/20 22:00 07/30/20 22:13 Lantus SUB-Q Not Given QHS [facility] Insulin Human Lispro 0 unit 05/29/20 18:00 07/31/20 06:07 Humalog SUB-Q 3 unit Q6H [facility] Administration Protocol Labetalol HCl 20 mg 06/03/20 09:00 07/21/20 05:56 Labetalol IV 20 mg Q4H PRN Administration HYPERTENSION Lansoprazole 30 mg 06/05/20 22:00 07/30/20 22:08 Prevacid Solutab FEEDTUBE 30 mg BID [facility] Administration Levetiracetam 1,000 mg 07/21/20 22:00 07/30/20 22:07 Keppra PO 1,000 mg BID NELSON Administration Minoxidil 5 mg 07/21/20 10:00 07/30/20 22:15 Loniten PO Not Given BID NELSON Multi-Ingred Cream/Lotion/Oil/Oint 1 applic 05/28/20 13:49 Artificial Tears Ophth Oint OU Q4HR PRN Dry Eye(s) Ondansetron HCl 4 mg 06/02/20 09:00 06/09/20 16:48 Zofran IV 4 mg Q8H PRN Administration Nausea And Vomiting Phenytoin 225 mg 07/29/20 22:00 07/30/20 22:12 Dilantin FEEDTUBE 225 mg BID NELSON Administration Senna 17.6 mg 06/03/20 10:00 07/30/20 22:14 Senokot FEEDTUBE Not Given BID NELSON Simple Syrup 15 ml 05/29/20 13:39 Simple Syrup FEEDTUBE PRN PRN Hypoglycemia Simple Syrup 30 ml 05/29/20 13:39 Simple Syrup FEEDTUBE PRN PRN Hypoglycemia Sodium Bicarbonate 325 mg 05/29/20 13:39 07/07/20 10:36 Sodium Bicarbonate FEEDTUBE 325 mg PRN PRN Administration For Clogged Feeding Tube Sodium Chloride 10 ml 05/28/20 22:00 07/30/20 22:15 Sodium Chloride Flush Syringe 10 Ml IV 10 ml BID NELSON Administration Sodium Chloride 10 ml 05/28/20 19:08 06/16/20 17:50 Sodium Chloride Flush Syringe 10 Ml IV 10 ml PRN PRN Administration LINE FLUSH Nutrition/Malnutrition Assess - Dietary Evaluation Nutrition/Malnutrition Findings: Nutrition Notes Start: 05/29/20 11:45 Freq: Status: Active Protocol: Document 07/27/20 08:59 LP (Rec: 07/27/20 09:05 LP [id number]) Nutrition Notes Initial or Follow up Reassessment Current Diagnosis Acute Kidney Injury,Diabetes, Heart Failure,Respiratory Failure Other Pertinent Diagnosis COVID-19 (+), Pulmonary edema, dysphagia Current Diet Nepro at 40 ml/hr Labs/Tests Na 135 K 3.5 BUN 103 Cr 2.6 BG 113 Pertinent Medications Reviewed Height 5 ft 6 in Weight 123 kg [place] Body Weight (kg) 59.09 BMI 43.7 Weight Status Morbidly Obese Subjective/Other Information Pt continues on vent. Pt tolerating TF at goal rate. Pt already on low K TF. Percent of energy/protein needs met: 100%/80% Protein calculated based on 0. 8g/kg ABW Burn Absent Trauma Absent Current % PO Negligible Minimum of two criteria No physical signs of malnutrition Fluid Accumulation Mild (non-severe) #1 Nutrition Diagnosis Inadequate oral intake Diagnosis Progress(for reassessment Continues documentation) Is patient on ventilator? Yes Is Patient Ambulatory and/or Out of Bed No REE-([facility]-confined to bed) 2172.576 Kcal/Kg value to use for calculation 14 Approximate Energy Requirements Using 1722 kcal/Kg Calculation Used for Recommendations Kcal/kg Additional Notes Protein needs up to 148g (up to 2.5g/kg IBW) Fluid needs 1ml/kcal Nutrition Intervention Change Diet Order: Continue Nutrition Support: Nepro at 40ml/hr Flush 150ml q4h Kcal 1,728 Protein (gm) 78 Fluid (mL) 697 Goal #1 TF tolerance Goal #2 Meet at least 75% of kcal and protein needs Anticipated Discharge Needs: Unable to determine at this time Follow-Up By: 08/03/20 Additional Comments Follow for stable TF
[2020-07-31] MEDS: SENNOSIDES ORAL LIQD 8.8 MG/5 ML ORAL LIQD FEEDTUBE SCH ×2 (10:40→21:42)
[2020-07-31] MEDS: PHENYTOIN 100 MG/4 ML ORAL.LIQD FEEDTUBE SCH ×2 (10:40→22:00)
[2020-07-31] MEDS: amLODIPine 10 MG TAB PO SCH (10:41)
[2020-07-31] MEDS: LANSOPRAZOLE 30 MG SOLUTAB FEEDTUBE SCH ×2 (10:41→22:09)
[2020-07-31] MEDS: levETIRAcetam 500 MG/5 ML ORAL LIQD PO SCH (10:41)
[2020-07-31] MEDS: GLYCOPYRROLATE 2 MG TAB PO SCH ×3 (10:42→22:03)
[2020-07-31] MEDS: carvediloL 25 MG TAB PO SCH ×2 (10:42→22:10)
[2020-07-31] MEDS: MINOXIDIL 2.5 MG TAB PO SCH ×2 (10:42→22:02)
--- NOTE | 2020-07-31 13:31 | Progress Note ---
Assessment and Plan Acute hypoxemic respiratory failure on MVS Coronavirus-19 infection. Bilateral pulmonary infiltrates, bilateral pneumonia plus likely element of Pulmonary edema. Bilateral pulmonary edema. Bilateral pleural effusions. History of congestive heart failure. Morbid obesity. History of pulmonary hypertension. History of hypertension. Diabetes. Obesity hypoventilation syndrome. Elevated serum inflammatory markers to include D-dimers and LDH levels. Hyperkalemia at presentation. Metabolic acidosis. Oropharyngeal dysphagia. (AMS remains rate limiting factor to safe extubation; she will need a tracheo stomy) - dialysis remains on hold due to hospice transition contemplation - no new issues otherwise, continue care as below; - prn CXR's and ABG's at this point - repeat EEG next per neurology rec's - AED's per neurology ([facility] [employer] [facility]) - surgery evaluation ongoing for trach +/- PEG (await negative COVID PCR result) - continue Modafinil re: lethargy / somnolence - continue daytime PSV trials as tolerated - Daily SAT and SBT assessment as tolerated - continue to wean supplemental oxygen for target O2 sat's > 90% acutely - VAP bundle addressed - continue lung protective strategies - continue bronchodilators with pulmonary hygiene per RT - wean per pulmonary driven protocols otherwise - continue accuchecks resumed with glycemic control per SSI (While critically ill target blood glucose of 140-180 mg/dL; avoid hypoglycemia) - sedation prn for target RASS 0 to -1 - continue to avoid benzodiazepine's, reduce the possibility of delirium - AB's per ID rec's (following clinically of AB's at this time) - continue enteral nutrition at goal rate as tolerated - AED's per neurology - prn analgesia per CPOT score - Maintenance of sleep-wake cycle, avoid delirium - continue enteral nutritional support at goal rate as tolerated - G.I. & VTE prophylaxis with heparin & famotidine - PT/OT/ROM exercises - continue mobility protocols for pressure ulcer prophylaxis - Monitor hemodynamics closely - continue other care per attending / other consultants - discharge planning ongoing concurrently (LTAC evaluation is appropriate) .... Re-evaluate in am & prn; will continue aggressive care until clear family wants to decelerate CONDITION: CRITICAL PROGNOSIS: GUARDED CODE STATUS: FULL CODE The high probability of a clinically significant, sudden or life-threatening deterioration of the [respiratory, cardiovascular, GI & neurologic] system(s) required my full and direct attention, intervention and personal management. The aggregate critical care time was [34] minutes without overlap. Time includes spent on; [x] Data Review and interpretation [x] Patient assessment and monitoring of vital signs [x] Documentation [x] Medication orders and management Subjective Date of service: 07/31/20 Principal diagnosis: Ac hypoxemic resp failure; COVID-19; pneumonia; CHF; Pulm HTN; OHS; DM II Interval history: Patient is seen today for: Ac hypoxemic resp failure; Coronavirus-19 infection; pneumonia; Pulmonary edema; Bilateral pleural effusions; CHF; Morbid obesity; pulmonary hypertension; OHS; DM II Seen and examined at bedside; 24hour events reviewed; nursing and respiratory care staff consulted; no adverse overnight events reported to me; resting peacefully in bed; remains on MVS; AMS is persistent; daughter reportedly undecided about AND status / continuing with hospice transition, meanwhile no new issues clinically Objective Vital Signs - 12hr 07/31/20 07/31/20 07/31/20 02:01 03:01 03:22 Temperature 99.2 F Pulse Rate 56 L 55 L Pulse Rate [ From Monitor] Respiratory 14 16 Rate Blood Pressure 156/60 166/59 O2 Sat by Pulse 98 98 Oximetry 07/31/20 07/31/20 07/31/20 03:55 04:00 04:01 Temperature Pulse Rate 55 L 55 L 55 L Pulse Rate [ 56 L From Monitor] Respiratory 12 10 L Rate Blood Pressure 166/59 163/49 O2 Sat by Pulse 99 99 99 Oximetry 07/31/20 07/31/20 07/31/20 05:01 06:01 07:01 Temperature Pulse Rate 55 L 53 L 55 L Pulse Rate [ From Monitor] Respiratory 13 13 18 Rate Blood Pressure 168/62 162/50 163/56 O2 Sat by Pulse 98 97 97 Oximetry 07/31/20 07/31/20 07/31/20 07:21 07:48 08:00 Temperature 97.6 F Pulse Rate 55 L 54 L Pulse Rate [ 56 L From Monitor] Respiratory 21 Rate Blood Pressure 163/56 200/53 O2 Sat by Pulse 98 99 Oximetry 07/31/20 07/31/20 07/31/20 08:01 09:00 09:01 Temperature Pulse Rate 55 L 56 L 57 L Pulse Rate [ From Monitor] Respiratory 10 L 23 12 Rate Blood Pressure 190/48 182/62 200/53 O2 Sat by Pulse 98 98 98 Oximetry 07/31/20 07/31/20 07/31/20 10:01 10:41 10:42 Temperature Pulse Rate 57 L 56 L 56 L Pulse Rate [ From Monitor] Respiratory 11 L Rate Blood Pressure 182/62 182/62 182/62 O2 Sat by Pulse 98 Oximetry 07/31/20 07/31/20 07/31/20 11:00 12:00 12:01 Temperature 97.6 F Pulse Rate 48 L 53 L 53 L Pulse Rate [ 61 From Monitor] Respiratory 13 14 16 Rate Blood Pressure 182/62 181/40 O2 Sat by Pulse 88 99 98 Oximetry 07/31/20 07/31/20 12:14 12:30 Temperature Pulse Rate 62 49 L Pulse Rate [ From Monitor] Respiratory Rate Blood Pressure 181/40 139/55 O2 Sat by Pulse 99 Oximetry Constitutional: appears uncomfortable, other (elderly looking female with mildly increased resp effort at rest) Eyes: non-icteric ENT: oropharynx dry, other (ETT 23-24 cm AYAN) Neck: supple, no lymphadenopathy, no JVD Effort: mildly labored Ascultation: Bilateral: diminished breath sounds, rales Percussion: Bilateral: not dull Cardiovascular: regular rate and rhythm, other (S1,S2) Gastrointestinal: normoactive bowel sounds, soft, non-tender, non-distended Integumentary: normal Extremities: no cyanosis, pink and warm, pulses normal, no ischemia or petechiae, edema (trace) Neurologic: pupils equal and round, unable to assess, other (lethargic to obtunded) Psychiatric: other (unable to assess re: AMS) CBC and BMP: 07/29/20 13:01 08/01/20 04:43 ABG, PT/INR, D-dimer: ABG ABG pH 7.382 (7.320-7.450) 07/18/20 04:24 POC ABG pCO2 44.1 mmHg (32.0-48.0) 07/18/20 04:24 ABG pCO2 47.0 mm Hg 07/05/20 13:05 POC ABG pO2 86.8 mmHg (83-108) 07/18/20 04:24 ABG pO2 78.3 mm Hg (80.0-90.0) L 07/05/20 13:05 POC ABG HCO3 25.6 07/18/20 04:24 ABG O2 Saturation 96.1 % (95.0-99.0) 07/05/20 13:05 PT/INR, D-dimer PT 14.2 Sec. (12.2-14.9) 05/29/20 15:10 INR 1.08 (0.87-1.13) 05/29/20 15:10 D-Dimer 2310.15 ng/mlDDU (0-234) H 06/29/20 14:45 Abnormal lab findings: Abnormal Labs 05/28/20 05/28/20 05/28/20 13:29 13:47 13:47 WBC RBC Hgb Hct MCHC RDW 15.3 H Lymph % (Auto) [place] % (Auto) Eos % (Auto) Lymph # [place] # Lymph # (Auto) [place] # (Auto) Eos # (Auto) Seg Neutrophils % Seg Neuts % (Manual) Lymphocytes % (Manual) Seg Neutrophils # Seg Neutrophils # Man Lymphocytes # (Manual) Monocytes % (Manual) Eosinophils % (Manual) Monocytes # (Manual) Eosinophils # (Manual) D-Dimer Heparin Anti-Xa Level ABG pH POC ABG pCO2 POC ABG pO2 ABG pO2 ABG HCO3 ABG O2 Saturation ABG Base Excess ABG Hemoglobin ABG Oxyhemoglobin VBG pH ABG Sodium ABG Potassium ABG Glucose Oxyhemoglobin Sodium Potassium 6.6 H* Chloride 109.2 H Carbon Dioxide 17 L BUN 29 H Creatinine 1.3 H Glucose 265 H POC Glucose 248 H Lactic Acid Calcium 8.1 L Ferritin AST 63 H Alkaline Phosphatase Magnesium Lactate Dehydrogenase Total Creatine Kinase 301 H CK-MB (CK-2) 4.3 H C-Reactive Protein Total Protein 5.4 L Albumin 2.6 L Troponin T HDL Cholesterol Arterial Blood Glucose Urine WBC (Auto) Urine Creatinine Urine Total Protein Phenytoin Coronavirus (PCR) Crossmatch 05/28/20 05/28/20 05/28/20 13:47 13:47 14:46 WBC RBC Hgb Hct MCHC RDW Lymph % (Auto) [place] % (Auto) Eos % (Auto) Lymph # [place] # Lymph # (Auto) [place] # (Auto) Eos # (Auto) Seg Neutrophils % Seg Neuts % (Manual) Lymphocytes % (Manual) Seg Neutrophils # Seg Neutrophils # Man Lymphocytes # (Manual) Monocytes % (Manual) Eosinophils % (Manual) Monocytes # (Manual) Eosinophils # (Manual) D-Dimer Heparin Anti-Xa Level ABG pH POC ABG pCO2 POC ABG pO2 ABG pO2 ABG HCO3 ABG O2 Saturation ABG Base Excess ABG Hemoglobin ABG Oxyhemoglobin VBG pH 7.152 L* ABG Sodium ABG Potassium ABG Glucose Oxyhemoglobin Sodium Potassium 7.2 H* Chloride Carbon Dioxide BUN Creatinine Glucose POC Glucose Lactic Acid 3.40 H* Calcium Ferritin AST Alkaline Phosphatase Magnesium Lactate Dehydrogenase Total Creatine Kinase CK-MB (CK-2) C-Reactive Protein Total Protein Albumin Troponin T HDL Cholesterol Arterial Blood Glucose Urine WBC (Auto) Urine Creatinine Urine Total Protein Phenytoin Coronavirus (PCR) Crossmatch 05/28/20 05/28/20 05/28/20 15:33 15:33 15:51 WBC RBC Hgb Hct MCHC RDW Lymph % (Auto) [place] % (Auto) Eos % (Auto) Lymph # [place] # Lymph # (Auto) [place] # (Auto) Eos # (Auto) Seg Neutrophils % Seg Neuts % (Manual) Lymphocytes % (Manual) Seg Neutrophils # Seg Neutrophils # Man Lymphocytes # (Manual) Monocytes % (Manual) Eosinophils % (Manual) Monocytes # (Manual) Eosinophils # (Manual) D-Dimer 8780.43 H Heparin Anti-Xa Level ABG pH 7.284 L POC ABG pCO2 POC ABG pO2 ABG pO2 273.0 H ABG HCO3 ABG O2 Saturation 99.4 H ABG Base Excess -6.1 L ABG Hemoglobin 17.2 H ABG Oxyhemoglobin VBG pH ABG Sodium ABG Potassium ABG Glucose Oxyhemoglobin Sodium Potassium Chloride Carbon Dioxide BUN Creatinine Glucose 152 H POC Glucose Lactic Acid Calcium Ferritin AST Alkaline Phosphatase Magnesium Lactate Dehydrogenase 365 H Total Creatine Kinase CK-MB (CK-2) C-Reactive Protein Total Protein Albumin Troponin T HDL Cholesterol Arterial Blood Glucose Urine WBC (Auto) Urine Creatinine Urine Total Protein Phenytoin Coronavirus (PCR) Crossmatch 05/28/20 05/28/20 05/28/20 16:30 20:41 23:20 WBC RBC Hgb Hct MCHC RDW Lymph % (Auto) [place] % (Auto) Eos % (Auto) Lymph # [place] # Lymph # (Auto) [place] # (Auto) Eos # (Auto) Seg Neutrophils % Seg Neuts % (Manual) Lymphocytes % (Manual) Seg Neutrophils # Seg Neutrophils # Man Lymphocytes # (Manual) Monocytes % (Manual) Eosinophils % (Manual) Monocytes # (Manual) Eosinophils # (Manual) D-Dimer Heparin Anti-Xa Level ABG pH POC ABG pCO2 POC ABG pO2 ABG pO2 ABG HCO3 ABG O2 Saturation ABG Base Excess ABG Hemoglobin ABG Oxyhemoglobin VBG pH ABG Sodium ABG Potassium ABG Glucose Oxyhemoglobin Sodium Potassium Chloride Carbon Dioxide BUN Creatinine Glucose POC Glucose 225 H 224 H Lactic Acid Calcium Ferritin AST Alkaline Phosphatase Magnesium Lactate Dehydrogenase Total Creatine Kinase CK-MB (CK-2) C-Reactive Protein Total Protein Albumin Troponin T HDL Cholesterol Arterial Blood Glucose Urine WBC (Auto) 17.0 H Urine Creatinine Urine Total Protein Phenytoin Coronavirus (PCR) Crossmatch 05/28/20 05/29/20 05/29/20 Unknown 04:35 04:43 WBC RBC 3.48 L Hgb 9.8 L Hct 29.4 L MCHC RDW 16.0 H Lymph % (Auto) 7.4 L [place] % (Auto) Eos % (Auto) Lymph # 0.7 L [place] # Lymph # (Auto) [place] # (Auto) Eos # (Auto) Seg Neutrophils % 89.1 H Seg Neuts % (Manual) Lymphocytes % (Manual) Seg Neutrophils # 8.1 H Seg Neutrophils # Man Lymphocytes # (Manual) Monocytes % (Manual) Eosinophils % (Manual) Monocytes # (Manual) Eosinophils # (Manual) D-Dimer Heparin Anti-Xa Level ABG pH POC ABG pCO2 POC ABG pO2 ABG pO2 ABG HCO3 19.3 L ABG O2 Saturation ABG Base Excess -4.5 L ABG Hemoglobin 9.7 L ABG Oxyhemoglobin VBG pH ABG Sodium ABG Potassium ABG Glucose Oxyhemoglobin Sodium Potassium Chloride Carbon Dioxide BUN Creatinine Glucose POC Glucose Lactic Acid Calcium Ferritin AST Alkaline Phosphatase Magnesium Lactate Dehydrogenase Total Creatine Kinase CK-MB (CK-2) C-Reactive Protein Total Protein Albumin Troponin T HDL Cholesterol Arterial Blood Glucose Urine WBC (Auto) Urine Creatinine Urine Total Protein Phenytoin Coronavirus (PCR) Positive A Crossmatch 05/29/20 05/29/20 05/29/20 04:43 15:10 17:17 WBC RBC Hgb 9.3 L Hct 28.7 L MCHC RDW Lymph % (Auto) [place] % (Auto) Eos % (Auto) Lymph # [place] # Lymph # (Auto) [place] # (Auto) Eos # (Auto) Seg Neutrophils % Seg Neuts % (Manual) Lymphocytes % (Manual) Seg Neutrophils # Seg Neutrophils # Man Lymphocytes # (Manual) Monocytes % (Manual) Eosinophils % (Manual) Monocytes # (Manual) Eosinophils # (Manual) D-Dimer Heparin Anti-Xa Level ABG pH POC ABG pCO2 POC ABG pO2 ABG pO2 ABG HCO3 ABG O2 Saturation ABG Base Excess ABG Hemoglobin ABG Oxyhemoglobin VBG pH ABG Sodium ABG Potassium ABG Glucose Oxyhemoglobin Sodium Potassium Chloride 110.2 H Carbon Dioxide 18 L BUN 32 H Creatinine 1.4 H Glucose 180 H POC Glucose 147 H Lactic Acid Calcium Ferritin AST Alkaline Phosphatase Magnesium Lactate Dehydrogenase Total Creatine Kinase CK-MB (CK-2) C-Reactive Protein Total Protein Albumin Troponin T HDL Cholesterol Arterial Blood Glucose Urine WBC (Auto) Urine Creatinine Urine Total Protein Phenytoin Coronavirus (PCR) Crossmatch 05/30/20 05/30/20 05/30/20 00:08 00:12 04:15 WBC RBC Hgb Hct MCHC RDW Lymph % (Auto) [place] % (Auto) Eos % (Auto) Lymph # [place] # Lymph # (Auto) [place] # (Auto) Eos # (Auto) Seg Neutrophils % Seg Neuts % (Manual) Lymphocytes % (Manual) Seg Neutrophils # Seg Neutrophils # Man Lymphocytes # (Manual) Monocytes % (Manual) Eosinophils % (Manual) Monocytes # (Manual) Eosinophils # (Manual) D-Dimer Heparin Anti-Xa Level 0.71 H ABG pH 7.460 H POC ABG pCO2 POC ABG pO2 ABG pO2 106.0 H ABG HCO3 18.9 L ABG O2 Saturation ABG Base Excess -4.4 L ABG Hemoglobin 6.8 L ABG Oxyhemoglobin VBG pH ABG Sodium ABG Potassium ABG Glucose Oxyhemoglobin Sodium Potassium Chloride Carbon Dioxide BUN Creatinine Glucose POC Glucose 195 H Lactic Acid Calcium Ferritin AST Alkaline Phosphatase Magnesium Lactate Dehydrogenase Total Creatine Kinase CK-MB (CK-2) C-Reactive Protein Total Protein Albumin Troponin T HDL Cholesterol Arterial Blood Glucose Urine WBC (Auto) Urine Creatinine Urine Total Protein Phenytoin Coronavirus (PCR) Crossmatch 05/30/20 05/30/20 05/30/20 06:07 08:37 12:33 WBC RBC Hgb Hct MCHC RDW Lymph % (Auto) [place] % (Auto) Eos % (Auto) Lymph # [place] # Lymph # (Auto) [place] # (Auto) Eos # (Auto) Seg Neutrophils % Seg Neuts % (Manual) Lymphocytes % (Manual) Seg Neutrophils # Seg Neutrophils # Man Lymphocytes # (Manual) Monocytes % (Manual) Eosinophils % (Manual) Monocytes # (Manual) Eosinophils # (Manual) D-Dimer Heparin Anti-Xa Level 0.85 H ABG pH POC ABG pCO2 POC ABG pO2 ABG pO2 ABG HCO3 ABG O2 Saturation ABG Base Excess ABG Hemoglobin ABG Oxyhemoglobin VBG pH ABG Sodium ABG Potassium ABG Glucose Oxyhemoglobin Sodium Potassium Chloride Carbon Dioxide BUN Creatinine Glucose POC Glucose 182 H 187 H Lactic Acid Calcium Ferritin AST Alkaline Phosphatase Magnesium Lactate Dehydrogenase Total Creatine Kinase CK-MB (CK-2) C-Reactive Protein Total Protein Albumin Troponin T HDL Cholesterol Arterial Blood Glucose Urine WBC (Auto) Urine Creatinine Urine Total Protein Phenytoin Coronavirus (PCR) Crossmatch 05/30/20 05/30/20 05/30/20 15:58 17:57 23:36 WBC RBC Hgb Hct MCHC RDW Lymph % (Auto) [place] % (Auto) Eos % (Auto) Lymph # [place] # Lymph # (Auto) [place] # (Auto) Eos # (Auto) Seg Neutrophils % Seg Neuts % (Manual) Lymphocytes % (Manual) Seg Neutrophils # Seg Neutrophils # Man Lymphocytes # (Manual) Monocytes % (Manual) Eosinophils % (Manual) Monocytes # (Manual) Eosinophils # (Manual) D-Dimer Heparin Anti-Xa Level 1.03 H ABG pH POC ABG pCO2 POC ABG pO2 ABG pO2 ABG HCO3 ABG O2 Saturation ABG Base Excess ABG Hemoglobin ABG Oxyhemoglobin VBG pH ABG Sodium ABG Potassium ABG Glucose Oxyhemoglobin Sodium Potassium Chloride Carbon Dioxide BUN Creatinine Glucose POC Glucose 208 H 185 H Lactic Acid Calcium Ferritin AST Alkaline Phosphatase Magnesium Lactate Dehydrogenase Total Creatine Kinase CK-MB (CK-2) C-Reactive Protein Total Protein Albumin Troponin T HDL Cholesterol Arterial Blood Glucose Urine WBC (Auto) Urine Creatinine Urine Total Protein Phenytoin Coronavirus (PCR) Crossmatch 05/31/20 05/31/20 05/31/20 02:16 03:55 06:16 WBC RBC Hgb 9.2 L Hct 27.5 L MCHC RDW Lymph % (Auto) [place] % (Auto) Eos % (Auto) Lymph # [place] # Lymph # (Auto) [place] # (Auto) Eos # (Auto) Seg Neutrophils % Seg Neuts % (Manual) Lymphocytes % (Manual) Seg Neutrophils # Seg Neutrophils # Man Lymphocytes # (Manual) Monocytes % (Manual) Eosinophils % (Manual) Monocytes # (Manual) Eosinophils # (Manual) D-Dimer Heparin Anti-Xa Level ABG pH POC ABG pCO2 POC ABG pO2 ABG pO2 94.7 H ABG HCO3 18.6 L ABG O2 Saturation ABG Base Excess -5.5 L ABG Hemoglobin 7.9 L ABG Oxyhemoglobin VBG pH ABG Sodium ABG Potassium ABG Glucose Oxyhemoglobin Sodium Potassium Chloride Carbon Dioxide BUN Creatinine Glucose POC Glucose 160 H Lactic Acid Calcium Ferritin AST Alkaline Phosphatase Magnesium Lactate Dehydrogenase Total Creatine Kinase CK-MB (CK-2) C-Reactive Protein Total Protein Albumin Troponin T HDL Cholesterol Arterial Blood Glucose Urine WBC (Auto) Urine Creatinine Urine Total Protein Phenytoin Coronavirus (PCR) Crossmatch 05/31/20 05/31/20 05/31/20 12:20 13:03 18:13 WBC RBC Hgb Hct MCHC RDW Lymph % (Auto) [place] % (Auto) Eos % (Auto) Lymph # [place] # Lymph # (Auto) [place] # (Auto) Eos # (Auto) Seg Neutrophils % Seg Neuts % (Manual) Lymphocytes % (Manual) Seg Neutrophils # Seg Neutrophils # Man Lymphocytes # (Manual) Monocytes % (Manual) Eosinophils % (Manual) Monocytes # (Manual) Eosinophils # (Manual) D-Dimer Heparin Anti-Xa Level ABG pH POC ABG pCO2 POC ABG pO2 ABG pO2 ABG HCO3 ABG O2 Saturation ABG Base Excess ABG Hemoglobin ABG Oxyhemoglobin VBG pH ABG Sodium ABG Potassium ABG Glucose Oxyhemoglobin Sodium Potassium Chloride Carbon Dioxide 18 L BUN 48 H Creatinine 1.6 H Glucose 115 H POC Glucose 128 H 159 H Lactic Acid Calcium 8.3 L Ferritin AST Alkaline Phosphatase Magnesium Lactate Dehydrogenase Total Creatine Kinase CK-MB (CK-2) C-Reactive Protein Total Protein 5.4 L Albumin 2.4 L Troponin T HDL Cholesterol Arterial Blood Glucose Urine WBC (Auto) Urine Creatinine Urine Total Protein Phenytoin Coronavirus (PCR) Crossmatch 05/31/20 06/01/20 06/01/20 23:51 04:00 05:48 WBC RBC Hgb Hct MCHC RDW Lymph % (Auto) [place] % (Auto) Eos % (Auto) Lymph # [place] # Lymph # (Auto) [place] # (Auto) Eos # (Auto) Seg Neutrophils % Seg Neuts % (Manual) Lymphocytes % (Manual) Seg Neutrophils # Seg Neutrophils # Man Lymphocytes # (Manual) Monocytes % (Manual) Eosinophils % (Manual) Monocytes # (Manual) Eosinophils # (Manual) D-Dimer Heparin Anti-Xa Level ABG pH POC ABG pCO2 POC ABG pO2 ABG pO2 109.8 H ABG HCO3 18.8 L ABG O2 Saturation ABG Base Excess -5.9 L ABG Hemoglobin 7.8 L ABG Oxyhemoglobin VBG pH ABG Sodium ABG Potassium ABG Glucose Oxyhemoglobin Sodium Potassium Chloride Carbon Dioxide BUN Creatinine Glucose POC Glucose 171 H 133 H Lactic Acid Calcium Ferritin AST Alkaline Phosphatase Magnesium Lactate Dehydrogenase Total Creatine Kinase CK-MB (CK-2) C-Reactive Protein Total Protein Albumin Troponin T HDL Cholesterol Arterial Blood Glucose Urine WBC (Auto) Urine Creatinine Urine Total Protein Phenytoin Coronavirus (PCR) Crossmatch 06/01/20 06/01/20 06/02/20 12:28 17:29 00:08 WBC RBC Hgb Hct MCHC RDW Lymph % (Auto) [place] % (Auto) Eos % (Auto) Lymph # [place] # Lymph # (Auto) [place] # (Auto) Eos # (Auto) Seg Neutrophils % Seg Neuts % (Manual) Lymphocytes % (Manual) Seg Neutrophils # Seg Neutrophils # Man Lymphocytes # (Manual) Monocytes % (Manual) Eosinophils % (Manual) Monocytes # (Manual) Eosinophils # (Manual) D-Dimer Heparin Anti-Xa Level ABG pH POC ABG pCO2 POC ABG pO2 ABG pO2 ABG HCO3 ABG O2 Saturation ABG Base Excess ABG Hemoglobin ABG Oxyhemoglobin VBG pH ABG Sodium ABG Potassium ABG Glucose Oxyhemoglobin Sodium Potassium Chloride Carbon Dioxide BUN Creatinine Glucose POC Glucose 199 H 209 H 162 H Lactic Acid Calcium Ferritin AST Alkaline Phosphatase Magnesium Lactate Dehydrogenase Total Creatine Kinase CK-MB (CK-2) C-Reactive Protein Total Protein Albumin Troponin T HDL Cholesterol Arterial Blood Glucose Urine WBC (Auto) Urine Creatinine Urine Total Protein Phenytoin Coronavirus (PCR) Crossmatch 06/02/20 06/02/20 06/02/20 04:20 04:20 04:44 WBC RBC Hgb 10.0 L Hct MCHC RDW Lymph % (Auto) [place] % (Auto) Eos % (Auto) Lymph # [place] # Lymph # (Auto) [place] # (Auto) Eos # (Auto) Seg Neutrophils % Seg Neuts % (Manual) Lymphocytes % (Manual) Seg Neutrophils # Seg Neutrophils # Man Lymphocytes # (Manual) Monocytes % (Manual) Eosinophils % (Manual) Monocytes # (Manual) Eosinophils # (Manual) D-Dimer Heparin Anti-Xa Level 0.10 L ABG pH POC ABG pCO2 POC ABG pO2 ABG pO2 150.6 H ABG HCO3 ABG O2 Saturation ABG Base Excess -4.1 L ABG Hemoglobin 11.8 L ABG Oxyhemoglobin VBG pH ABG Sodium ABG Potassium ABG Glucose Oxyhemoglobin Sodium Potassium Chloride Carbon Dioxide BUN Creatinine Glucose POC Glucose Lactic Acid Calcium Ferritin AST Alkaline Phosphatase Magnesium Lactate Dehydrogenase Total Creatine Kinase CK-MB (CK-2) C-Reactive Protein Total Protein Albumin Troponin T HDL Cholesterol Arterial Blood Glucose Urine WBC (Auto) Urine Creatinine Urine Total Protein Phenytoin Coronavirus (PCR) Crossmatch 06/02/20 06/02/20 06/02/20 05:53 12:04 13:49 WBC RBC Hgb Hct MCHC RDW Lymph % (Auto) [place] % (Auto) Eos % (Auto) Lymph # [place] # Lymph # (Auto) [place] # (Auto) Eos # (Auto) Seg Neutrophils % Seg Neuts % (Manual) Lymphocytes % (Manual) Seg Neutrophils # Seg Neutrophils # Man Lymphocytes # (Manual) Monocytes % (Manual) Eosinophils % (Manual) Monocytes # (Manual) Eosinophils # (Manual) D-Dimer Heparin Anti-Xa Level 0.28 L ABG pH POC ABG pCO2 POC ABG pO2 ABG pO2 ABG HCO3 ABG O2 Saturation ABG Base Excess ABG Hemoglobin ABG Oxyhemoglobin VBG pH ABG Sodium ABG Potassium ABG Glucose Oxyhemoglobin Sodium Potassium Chloride Carbon Dioxide BUN Creatinine Glucose POC Glucose 149 H 220 H Lactic Acid Calcium Ferritin AST Alkaline Phosphatase Magnesium Lactate Dehydrogenase Total Creatine Kinase CK-MB (CK-2) C-Reactive Protein Total Protein Albumin Troponin T HDL Cholesterol Arterial Blood Glucose Urine WBC (Auto) Urine Creatinine Urine Total Protein Phenytoin Coronavirus (PCR) Crossmatch 06/02/20 06/02/20 06/03/20 13:49 18:31 00:42 WBC RBC Hgb Hct MCHC RDW Lymph % (Auto) [place] % (Auto) Eos % (Auto) Lymph # [place] # Lymph # (Auto) [place] # (Auto) Eos # (Auto) Seg Neutrophils % Seg Neuts % (Manual) Lymphocytes % (Manual) Seg Neutrophils # Seg Neutrophils # Man Lymphocytes # (Manual) Monocytes % (Manual) Eosinophils % (Manual) Monocytes # (Manual) Eosinophils # (Manual) D-Dimer 769.68 H Heparin Anti-Xa Level ABG pH POC ABG pCO2 POC ABG pO2 ABG pO2 ABG HCO3 ABG O2 Saturation ABG Base Excess ABG Hemoglobin ABG Oxyhemoglobin VBG pH ABG Sodium ABG Potassium ABG Glucose Oxyhemoglobin Sodium Potassium Chloride Carbon Dioxide BUN Creatinine Glucose POC Glucose 225 H 212 H Lactic Acid Calcium Ferritin AST Alkaline Phosphatase Magnesium Lactate Dehydrogenase Total Creatine Kinase CK-MB (CK-2) C-Reactive Protein Total Protein Albumin Troponin T HDL Cholesterol Arterial Blood Glucose Urine WBC (Auto) Urine Creatinine Urine Total Protein Phenytoin Coronavirus (PCR) Crossmatch 06/03/20 06/03/20 06/03/20 05:16 05:16 05:25 WBC 11.4 H RBC Hgb Hct MCHC RDW 16.4 H Lymph % (Auto) [place] % (Auto) Eos % (Auto) Lymph # [place] # Lymph # (Auto) [place] # (Auto) Eos # (Auto) Seg Neutrophils % Seg Neuts % (Manual) Lymphocytes % (Manual) Seg Neutrophils # Seg Neutrophils # Man Lymphocytes # (Manual) Monocytes % (Manual) Eosinophils % (Manual) Monocytes # (Manual) Eosinophils # (Manual) D-Dimer Heparin Anti-Xa Level ABG pH POC ABG pCO2 POC ABG pO2 ABG pO2 160.9 H ABG HCO3 19.4 L ABG O2 Saturation ABG Base Excess -4.9 L ABG Hemoglobin 7.0 L ABG Oxyhemoglobin VBG pH ABG Sodium ABG Potassium ABG Glucose Oxyhemoglobin Sodium Potassium Chloride Carbon Dioxide 18 L BUN 65 H Creatinine 2.0 H Glucose 175 H POC Glucose Lactic Acid Calcium 8.0 L Ferritin AST Alkaline Phosphatase Magnesium Lactate Dehydrogenase Total Creatine Kinase CK-MB (CK-2) C-Reactive Protein Total Protein 5.5 L Albumin 2.2 L Troponin T HDL Cholesterol Arterial Blood Glucose Urine WBC (Auto) Urine Creatinine Urine Total Protein Phenytoin Coronavirus (PCR) Crossmatch 06/03/20 06/03/20 06/03/20 06:07 11:58 18:24 WBC RBC Hgb Hct MCHC RDW Lymph % (Auto) [place] % (Auto) Eos % (Auto) Lymph # [place] # Lymph # (Auto) [place] # (Auto) Eos # (Auto) Seg Neutrophils % Seg Neuts % (Manual) Lymphocytes % (Manual) Seg Neutrophils # Seg Neutrophils # Man Lymphocytes # (Manual) Monocytes % (Manual) Eosinophils % (Manual) Monocytes # (Manual) Eosinophils # (Manual) D-Dimer Heparin Anti-Xa Level ABG pH POC ABG pCO2 POC ABG pO2 ABG pO2 ABG HCO3 ABG O2 Saturation ABG Base Excess ABG Hemoglobin ABG Oxyhemoglobin VBG pH ABG Sodium ABG Potassium ABG Glucose Oxyhemoglobin Sodium Potassium Chloride Carbon Dioxide BUN Creatinine Glucose POC Glucose 177 H 163 H 211 H Lactic Acid Calcium Ferritin AST Alkaline Phosphatase Magnesium Lactate Dehydrogenase Total Creatine Kinase CK-MB (CK-2) C-Reactive Protein Total Protein Albumin Troponin T HDL Cholesterol Arterial Blood Glucose Urine WBC (Auto) Urine Creatinine Urine Total Protein Phenytoin Coronavirus (PCR) Crossmatch 06/03/20 06/03/20 06/04/20 21:50 Unknown 00:26 WBC RBC Hgb Hct MCHC RDW Lymph % (Auto) [place] % (Auto) Eos % (Auto) Lymph # [place] # Lymph # (Auto) [place] # (Auto) Eos # (Auto) Seg Neutrophils % Seg Neuts % (Manual) Lymphocytes % (Manual) Seg Neutrophils # Seg Neutrophils # Man Lymphocytes # (Manual) Monocytes % (Manual) Eosinophils % (Manual) Monocytes # (Manual) Eosinophils # (Manual) D-Dimer Heparin Anti-Xa Level ABG pH POC ABG pCO2 POC ABG pO2 ABG pO2 ABG HCO3 ABG O2 Saturation ABG Base Excess ABG Hemoglobin ABG Oxyhemoglobin VBG pH ABG Sodium ABG Potassium ABG Glucose Oxyhemoglobin Sodium 135 L Potassium Chloride Carbon Dioxide 18 L BUN Creatinine Glucose POC Glucose 241 H Lactic Acid Calcium Ferritin AST Alkaline Phosphatase Magnesium Lactate Dehydrogenase Total Creatine Kinase CK-MB (CK-2) C-Reactive Protein Total Protein Albumin Troponin T HDL Cholesterol Arterial Blood Glucose Urine WBC (Auto) 11.0 H Urine Creatinine Urine Total Protein Phenytoin Coronavirus (PCR) Crossmatch 06/04/20 06/04/20 06/04/20 03:35 04:19 04:19 WBC RBC 3.15 L Hgb 8.9 L Hct 26.8 L D MCHC RDW 15.9 H Lymph % (Auto) 6.0 L [place] % (Auto) Eos % (Auto) Lymph # 0.6 L [place] # Lymph # (Auto) [place] # (Auto) Eos # (Auto) Seg Neutrophils % 86.6 H Seg Neuts % (Manual) Lymphocytes % (Manual) Seg Neutrophils # 9.1 H Seg Neutrophils # Man Lymphocytes # (Manual) Monocytes % (Manual) Eosinophils % (Manual) Monocytes # (Manual) Eosinophils # (Manual) D-Dimer Heparin Anti-Xa Level ABG pH 7.331 L POC ABG pCO2 POC ABG pO2 ABG pO2 ABG HCO3 ABG O2 Saturation ABG Base Excess -4.7 L ABG Hemoglobin 11.0 L ABG Oxyhemoglobin VBG pH ABG Sodium ABG Potassium ABG Glucose Oxyhemoglobin 93.9 L Sodium 136 L Potassium Chloride Carbon Dioxide 20 L BUN 73 H Creatinine 2.0 H Glucose 192 H POC Glucose Lactic Acid Calcium 8.0 L Ferritin AST Alkaline Phosphatase Magnesium Lactate Dehydrogenase 271 H Total Creatine Kinase CK-MB (CK-2) C-Reactive Protein 2.20 H Total Protein 5.0 L Albumin 2.0 L Troponin T HDL Cholesterol Arterial Blood Glucose Urine WBC (Auto) Urine Creatinine Urine Total Protein Phenytoin Coronavirus (PCR) Crossmatch 06/04/20 06/04/20 06/04/20 04:19 05:51 11:48 WBC RBC Hgb Hct MCHC RDW Lymph % (Auto) [place] % (Auto) Eos % (Auto) Lymph # [place] # Lymph # (Auto) [place] # (Auto) Eos # (Auto) Seg Neutrophils % Seg Neuts % (Manual) Lymphocytes % (Manual) Seg Neutrophils # Seg Neutrophils # Man Lymphocytes # (Manual) Monocytes % (Manual) Eosinophils % (Manual) Monocytes # (Manual) Eosinophils # (Manual) D-Dimer 414.52 H Heparin Anti-Xa Level ABG pH POC ABG pCO2 POC ABG pO2 ABG pO2 ABG HCO3 ABG O2 Saturation ABG Base Excess ABG Hemoglobin ABG Oxyhemoglobin VBG pH ABG Sodium ABG Potassium ABG Glucose Oxyhemoglobin Sodium Potassium Chloride Carbon Dioxide BUN Creatinine Glucose POC Glucose 179 H 213 H Lactic Acid Calcium Ferritin AST Alkaline Phosphatase Magnesium Lactate Dehydrogenase Total Creatine Kinase CK-MB (CK-2) C-Reactive Protein Total Protein Albumin Troponin T HDL Cholesterol Arterial Blood Glucose Urine WBC (Auto) Urine Creatinine Urine Total Protein Phenytoin Coronavirus (PCR) Crossmatch 06/04/20 06/05/20 06/05/20 18:25 00:16 05:00 WBC RBC Hgb Hct MCHC RDW Lymph % (Auto) [place] % (Auto) Eos % (Auto) Lymph # [place] # Lymph # (Auto) [place] # (Auto) Eos # (Auto) Seg Neutrophils % Seg Neuts % (Manual) Lymphocytes % (Manual) Seg Neutrophils # Seg Neutrophils # Man Lymphocytes # (Manual) Monocytes % (Manual) Eosinophils % (Manual) Monocytes # (Manual) Eosinophils # (Manual) D-Dimer Heparin Anti-Xa Level ABG pH 7.286 L POC ABG pCO2 POC ABG pO2 ABG pO2 96.2 H ABG HCO3 ABG O2 Saturation ABG Base Excess -6.3 L ABG Hemoglobin 8.8 L ABG Oxyhemoglobin VBG pH ABG Sodium ABG Potassium ABG Glucose Oxyhemoglobin 94.8 L Sodium Potassium Chloride Carbon Dioxide BUN Creatinine Glucose POC Glucose 238 H 183 H Lactic Acid Calcium Ferritin AST Alkaline Phosphatase Magnesium Lactate Dehydrogenase Total Creatine Kinase CK-MB (CK-2) C-Reactive Protein Total Protein Albumin Troponin T HDL Cholesterol Arterial Blood Glucose Urine WBC (Auto) Urine Creatinine Urine Total Protein Phenytoin Coronavirus (PCR) Crossmatch 06/05/20 06/05/20 06/05/20 05:39 07:25 07:25 WBC RBC 2.97 L Hgb 8.7 L Hct 25.7 L MCHC RDW 16.0 H Lymph % (Auto) 8.8 L [place] % (Auto) 13.3 H Eos % (Auto) Lymph # 0.8 L [place] # 1.3 H Lymph # (Auto) [place] # (Auto) Eos # (Auto) Seg Neutrophils % 77.3 H Seg Neuts % (Manual) Lymphocytes % (Manual) Seg Neutrophils # Seg Neutrophils # Man Lymphocytes # (Manual) Monocytes % (Manual) Eosinophils % (Manual) Monocytes # (Manual) Eosinophils # (Manual) D-Dimer Heparin Anti-Xa Level ABG pH POC ABG pCO2 POC ABG pO2 ABG pO2 ABG HCO3 ABG O2 Saturation ABG Base Excess ABG Hemoglobin ABG Oxyhemoglobin VBG pH ABG Sodium ABG Potassium ABG Glucose Oxyhemoglobin Sodium 133 L Potassium Chloride Carbon Dioxide 17 L BUN 89 H Creatinine 2.8 H Glucose 176 H POC Glucose 149 H Lactic Acid Calcium 7.7 L Ferritin AST Alkaline Phosphatase Magnesium Lactate Dehydrogenase Total Creatine Kinase CK-MB (CK-2) C-Reactive Protein Total Protein 4.2 L Albumin 1.9 L Troponin T HDL Cholesterol Arterial Blood Glucose Urine WBC (Auto) Urine Creatinine Urine Total Protein Phenytoin Coronavirus (PCR) Crossmatch 06/05/20 06/05/20 06/05/20 07:25 12:05 15:41 WBC RBC Hgb Hct MCHC RDW Lymph % (Auto) [place] % (Auto) Eos % (Auto) Lymph # [place] # Lymph # (Auto) [place] # (Auto) Eos # (Auto) Seg Neutrophils % Seg Neuts % (Manual) Lymphocytes % (Manual) Seg Neutrophils # Seg Neutrophils # Man Lymphocytes # (Manual) Monocytes % (Manual) Eosinophils % (Manual) Monocytes # (Manual) Eosinophils # (Manual) D-Dimer Heparin Anti-Xa Level 0.76 H 0.81 H ABG pH POC ABG pCO2 POC ABG pO2 ABG pO2 ABG HCO3 ABG O2 Saturation ABG Base Excess ABG Hemoglobin ABG Oxyhemoglobin VBG pH ABG Sodium ABG Potassium ABG Glucose Oxyhemoglobin Sodium Potassium Chloride Carbon Dioxide BUN Creatinine Glucose POC Glucose 198 H Lactic Acid Calcium Ferritin AST Alkaline Phosphatase Magnesium Lactate Dehydrogenase Total Creatine Kinase CK-MB (CK-2) C-Reactive Protein Total Protein Albumin Troponin T HDL Cholesterol Arterial Blood Glucose Urine WBC (Auto) Urine Creatinine Urine Total Protein Phenytoin Coronavirus (PCR) Crossmatch 06/05/20 06/05/20 06/06/20 18:08 23:25 04:00 WBC RBC Hgb Hct MCHC RDW Lymph % (Auto) [place] % (Auto) Eos % (Auto) Lymph # [place] # Lymph # (Auto) [place] # (Auto) Eos # (Auto) Seg Neutrophils % Seg Neuts % (Manual) Lymphocytes % (Manual) Seg Neutrophils # Seg Neutrophils # Man Lymphocytes # (Manual) Monocytes % (Manual) Eosinophils % (Manual) Monocytes # (Manual) Eosinophils # (Manual) D-Dimer Heparin Anti-Xa Level ABG pH POC ABG pCO2 POC ABG pO2 ABG pO2 ABG HCO3 ABG O2 Saturation ABG Base Excess ABG Hemoglobin ABG Oxyhemoglobin VBG pH ABG Sodium ABG Potassium ABG Glucose Oxyhemoglobin Sodium Potassium Chloride Carbon Dioxide BUN Creatinine Glucose POC Glucose 223 H 169 H Lactic Acid Calcium Ferritin AST Alkaline Phosphatase Magnesium Lactate Dehydrogenase Total Creatine Kinase CK-MB (CK-2) C-Reactive Protein Total Protein Albumin Troponin T HDL Cholesterol Arterial Blood Glucose Urine WBC (Auto) 15.0 H Urine Creatinine Urine Total Protein Phenytoin Coronavirus (PCR) Crossmatch 06/06/20 06/06/20 06/06/20 04:00 05:33 05:38 WBC RBC 2.97 L Hgb 8.7 L Hct 26.8 L MCHC RDW 16.8 H Lymph % (Auto) [place] % (Auto) Eos % (Auto) Lymph # [place] # Lymph # (Auto) [place] # (Auto) Eos # (Auto) Seg Neutrophils % Seg Neuts % (Manual) Lymphocytes % (Manual) Seg Neutrophils # Seg Neutrophils # Man Lymphocytes # (Manual) Monocytes % (Manual) Eosinophils % (Manual) Monocytes # (Manual) Eosinophils # (Manual) D-Dimer Heparin Anti-Xa Level ABG pH POC ABG pCO2 POC ABG pO2 ABG pO2 ABG HCO3 ABG O2 Saturation ABG Base Excess ABG Hemoglobin ABG Oxyhemoglobin VBG pH ABG Sodium ABG Potassium ABG Glucose Oxyhemoglobin Sodium Potassium Chloride Carbon Dioxide BUN Creatinine Glucose POC Glucose 186 H Lactic Acid Calcium Ferritin AST Alkaline Phosphatase Magnesium Lactate Dehydrogenase Total Creatine Kinase CK-MB (CK-2) C-Reactive Protein Total Protein Albumin Troponin T HDL Cholesterol Arterial Blood Glucose Urine WBC (Auto) Urine Creatinine 82.2 H Urine Total Protein 196 H Phenytoin Coronavirus (PCR) Crossmatch 06/06/20 06/06/20 06/06/20 05:38 12:25 17:03 WBC RBC Hgb Hct MCHC RDW Lymph % (Auto) [place] % (Auto) Eos % (Auto) Lymph # [place] # Lymph # (Auto) [place] # (Auto) Eos # (Auto) Seg Neutrophils % Seg Neuts % (Manual) Lymphocytes % (Manual) Seg Neutrophils # Seg Neutrophils # Man Lymphocytes # (Manual) Monocytes % (Manual) Eosinophils % (Manual) Monocytes # (Manual) Eosinophils # (Manual) D-Dimer Heparin Anti-Xa Level ABG pH POC ABG pCO2 POC ABG pO2 ABG pO2 ABG HCO3 ABG O2 Saturation ABG Base Excess ABG Hemoglobin ABG Oxyhemoglobin VBG pH ABG Sodium ABG Potassium ABG Glucose Oxyhemoglobin Sodium 134 L Potassium 5.2 H Chloride Carbon Dioxide 18 L BUN 97 H Creatinine 2.5 H Glucose 193 H POC Glucose 239 H 252 H Lactic Acid Calcium 7.5 L Ferritin AST Alkaline Phosphatase Magnesium Lactate Dehydrogenase Total Creatine Kinase CK-MB (CK-2) C-Reactive Protein Total Protein 4.1 L Albumin 1.9 L Troponin T HDL Cholesterol Arterial Blood Glucose Urine WBC (Auto) Urine Creatinine Urine Total Protein Phenytoin Coronavirus (PCR) Crossmatch 06/07/20 06/07/20 06/07/20 00:16 01:49 04:00 WBC RBC 2.91 L Hgb 8.4 L Hct 25.0 L MCHC RDW 16.1 H Lymph % (Auto) 5.7 L [place] % (Auto) 10.5 H Eos % (Auto) Lymph # 0.6 L [place] # 1.1 H Lymph # (Auto) [place] # (Auto) Eos # (Auto) Seg Neutrophils % 83.6 H Seg Neuts % (Manual) Lymphocytes % (Manual) Seg Neutrophils # 9.1 H Seg Neutrophils # Man Lymphocytes # (Manual) Monocytes % (Manual) Eosinophils % (Manual) Monocytes # (Manual) Eosinophils # (Manual) D-Dimer Heparin Anti-Xa Level 0.26 L ABG pH POC ABG pCO2 POC ABG pO2 ABG pO2 ABG HCO3 ABG O2 Saturation ABG Base Excess ABG Hemoglobin ABG Oxyhemoglobin VBG pH ABG Sodium ABG Potassium ABG Glucose Oxyhemoglobin Sodium Potassium Chloride Carbon Dioxide BUN Creatinine Glucose POC Glucose 173 H Lactic Acid Calcium Ferritin AST Alkaline Phosphatase Magnesium Lactate Dehydrogenase Total Creatine Kinase CK-MB (CK-2) C-Reactive Protein Total Protein Albumin Troponin T HDL Cholesterol Arterial Blood Glucose Urine WBC (Auto) Urine Creatinine Urine Total Protein Phenytoin Coronavirus (PCR) Crossmatch 06/07/20 06/07/20 06/07/20 04:00 04:54 05:51 WBC RBC Hgb Hct MCHC RDW Lymph % (Auto) [place] % (Auto) Eos % (Auto) Lymph # [place] # Lymph # (Auto) [place] # (Auto) Eos # (Auto) Seg Neutrophils % Seg Neuts % (Manual) Lymphocytes % (Manual) Seg Neutrophils # Seg Neutrophils # Man Lymphocytes # (Manual) Monocytes % (Manual) Eosinophils % (Manual) Monocytes # (Manual) Eosinophils # (Manual) D-Dimer Heparin Anti-Xa Level ABG pH 7.317 L POC ABG pCO2 POC ABG pO2 ABG pO2 71.4 L ABG HCO3 ABG O2 Saturation 94.3 L ABG Base Excess -4.8 L ABG Hemoglobin 7.1 L ABG Oxyhemoglobin VBG pH ABG Sodium ABG Potassium ABG Glucose Oxyhemoglobin 92.2 L Sodium 133 L Potassium Chloride Carbon Dioxide 18 L BUN 100 H Creatinine 2.5 H Glucose 158 H POC Glucose 168 H Lactic Acid Calcium 7.6 L Ferritin AST Alkaline Phosphatase Magnesium Lactate Dehydrogenase Total Creatine Kinase CK-MB (CK-2) C-Reactive Protein Total Protein 4.7 L Albumin 2.0 L Troponin T HDL Cholesterol Arterial Blood Glucose Urine WBC (Auto) Urine Creatinine Urine Total Protein Phenytoin Coronavirus (PCR) Crossmatch 06/07/20 06/07/20 06/07/20 12:03 17:17 20:10 WBC RBC Hgb Hct MCHC RDW Lymph % (Auto) [place] % (Auto) Eos % (Auto) Lymph # [place] # Lymph # (Auto) [place] # (Auto) Eos # (Auto) Seg Neutrophils % Seg Neuts % (Manual) Lymphocytes % (Manual) Seg Neutrophils # Seg Neutrophils # Man Lymphocytes # (Manual) Monocytes % (Manual) Eosinophils % (Manual) Monocytes # (Manual) Eosinophils # (Manual) D-Dimer Heparin Anti-Xa Level 0.17 L ABG pH POC ABG pCO2 POC ABG pO2 ABG pO2 ABG HCO3 ABG O2 Saturation ABG Base Excess ABG Hemoglobin ABG Oxyhemoglobin VBG pH ABG Sodium ABG Potassium ABG Glucose Oxyhemoglobin Sodium Potassium Chloride Carbon Dioxide BUN Creatinine Glucose POC Glucose 276 H 281 H Lactic Acid Calcium Ferritin AST Alkaline Phosphatase Magnesium Lactate Dehydrogenase Total Creatine Kinase CK-MB (CK-2) C-Reactive Protein Total Protein Albumin Troponin T HDL Cholesterol Arterial Blood Glucose Urine WBC (Auto) Urine Creatinine Urine Total Protein Phenytoin Coronavirus (PCR) Crossmatch 06/08/20 06/08/20 06/08/20 00:02 04:47 04:47 WBC 16.4 H RBC 3.07 L Hgb 8.6 L Hct 26.5 L MCHC RDW 16.3 H Lymph % (Auto) [place] % (Auto) Eos % (Auto) Lymph # [place] # Lymph # (Auto) [place] # (Auto) Eos # (Auto) Seg Neutrophils % Seg Neuts % (Manual) 90.0 H Lymphocytes % (Manual) 3.0 L Seg Neutrophils # Seg Neutrophils # Man 14.8 H Lymphocytes # (Manual) 0.5 L Monocytes % (Manual) Eosinophils % (Manual) Monocytes # (Manual) 1.1 H Eosinophils # (Manual) D-Dimer Heparin Anti-Xa Level ABG pH POC ABG pCO2 POC ABG pO2 ABG pO2 ABG HCO3 ABG O2 Saturation ABG Base Excess ABG Hemoglobin ABG Oxyhemoglobin VBG pH ABG Sodium ABG Potassium ABG Glucose Oxyhemoglobin Sodium 129 L Potassium Chloride 95.6 L Carbon Dioxide 17 L BUN 106 H Creatinine 2.5 H Glucose 213 H POC Glucose 242 H Lactic Acid Calcium 7.6 L Ferritin AST Alkaline Phosphatase Magnesium Lactate Dehydrogenase Total Creatine Kinase CK-MB (CK-2) C-Reactive Protein Total Protein 5.0 L Albumin 2.1 L Troponin T HDL Cholesterol Arterial Blood Glucose Urine WBC (Auto) Urine Creatinine Urine Total Protein Phenytoin Coronavirus (PCR) Crossmatch 06/08/20 06/08/20 06/08/20 05:40 11:55 17:54 WBC RBC Hgb Hct MCHC RDW Lymph % (Auto) [place] % (Auto) Eos % (Auto) Lymph # [place] # Lymph # (Auto) [place] # (Auto) Eos # (Auto) Seg Neutrophils % Seg Neuts % (Manual) Lymphocytes % (Manual) Seg Neutrophils # Seg Neutrophils # Man Lymphocytes # (Manual) Monocytes % (Manual) Eosinophils % (Manual) Monocytes # (Manual) Eosinophils # (Manual) D-Dimer Heparin Anti-Xa Level ABG pH POC ABG pCO2 POC ABG pO2 ABG pO2 ABG HCO3 ABG O2 Saturation ABG Base Excess ABG Hemoglobin ABG Oxyhemoglobin VBG pH ABG Sodium ABG Potassium ABG Glucose Oxyhemoglobin Sodium Potassium Chloride Carbon Dioxide BUN Creatinine Glucose POC Glucose 221 H 218 H 163 H Lactic Acid Calcium Ferritin AST Alkaline Phosphatase Magnesium Lactate Dehydrogenase Total Creatine Kinase CK-MB (CK-2) C-Reactive Protein Total Protein Albumin Troponin T HDL Cholesterol Arterial Blood Glucose Urine WBC (Auto) Urine Creatinine Urine Total Protein Phenytoin Coronavirus (PCR) Crossmatch 06/08/20 06/09/20 06/09/20 22:01 00:09 05:16 WBC 19.0 H RBC 3.35 L Hgb 9.2 L Hct 28.5 L MCHC RDW 16.3 H Lymph % (Auto) [place] % (Auto) Eos % (Auto) Lymph # [place] # Lymph # (Auto) [place] # (Auto) Eos # (Auto) Seg Neutrophils % Seg Neuts % (Manual) 85.0 H Lymphocytes % (Manual) 7.0 L Seg Neutrophils # Seg Neutrophils # Man 16.2 H Lymphocytes # (Manual) Monocytes % (Manual) Eosinophils % (Manual) Monocytes # (Manual) 1.3 H Eosinophils # (Manual) D-Dimer Heparin Anti-Xa Level ABG pH POC ABG pCO2 POC ABG pO2 ABG pO2 ABG HCO3 ABG O2 Saturation ABG Base Excess ABG Hemoglobin ABG Oxyhemoglobin VBG pH ABG Sodium ABG Potassium ABG Glucose Oxyhemoglobin Sodium Potassium Chloride Carbon Dioxide BUN Creatinine Glucose POC Glucose 182 H 150 H Lactic Acid Calcium Ferritin AST Alkaline Phosphatase Magnesium Lactate Dehydrogenase Total Creatine Kinase CK-MB (CK-2) C-Reactive Protein Total Protein Albumin Troponin T HDL Cholesterol Arterial Blood Glucose Urine WBC (Auto) Urine Creatinine Urine Total Protein Phenytoin Coronavirus (PCR) Crossmatch 06/09/20 06/09/20 06/09/20 05:16 05:24 11:29 WBC RBC Hgb Hct MCHC RDW Lymph % (Auto) [place] % (Auto) Eos % (Auto) Lymph # [place] # Lymph # (Auto) [place] # (Auto) Eos # (Auto) Seg Neutrophils % Seg Neuts % (Manual) Lymphocytes % (Manual) Seg Neutrophils # Seg Neutrophils # Man Lymphocytes # (Manual) Monocytes % (Manual) Eosinophils % (Manual) Monocytes # (Manual) Eosinophils # (Manual) D-Dimer Heparin Anti-Xa Level ABG pH POC ABG pCO2 POC ABG pO2 ABG pO2 ABG HCO3 ABG O2 Saturation ABG Base Excess ABG Hemoglobin ABG Oxyhemoglobin VBG pH ABG Sodium ABG Potassium ABG Glucose Oxyhemoglobin Sodium 133 L Potassium Chloride Carbon Dioxide 19 L BUN 109 H Creatinine 2.1 H Glucose 133 H POC Glucose 128 H 119 H Lactic Acid Calcium 7.7 L Ferritin AST Alkaline Phosphatase < 5 L Magnesium Lactate Dehydrogenase Total Creatine Kinase CK-MB (CK-2) C-Reactive Protein Total Protein 4.6 L Albumin < 0.2 L Troponin T HDL Cholesterol Arterial Blood Glucose Urine WBC (Auto) Urine Creatinine Urine Total Protein Phenytoin Coronavirus (PCR) Crossmatch 06/09/20 06/10/20 06/10/20 17:32 00:00 05:49 WBC RBC Hgb Hct MCHC RDW Lymph % (Auto) [place] % (Auto) Eos % (Auto) Lymph # [place] # Lymph # (Auto) [place] # (Auto) Eos # (Auto) Seg Neutrophils % Seg Neuts % (Manual) Lymphocytes % (Manual) Seg Neutrophils # Seg Neutrophils # Man Lymphocytes # (Manual) Monocytes % (Manual) Eosinophils % (Manual) Monocytes # (Manual) Eosinophils # (Manual) D-Dimer Heparin Anti-Xa Level 0.19 L ABG pH POC ABG pCO2 POC ABG pO2 ABG pO2 ABG HCO3 ABG O2 Saturation ABG Base Excess ABG Hemoglobin ABG Oxyhemoglobin VBG pH ABG Sodium ABG Potassium ABG Glucose Oxyhemoglobin Sodium Potassium Chloride Carbon Dioxide BUN Creatinine Glucose POC Glucose 106 H 117 H Lactic Acid Calcium Ferritin AST Alkaline Phosphatase Magnesium Lactate Dehydrogenase Total Creatine Kinase CK-MB (CK-2) C-Reactive Protein Total Protein Albumin Troponin T HDL Cholesterol Arterial Blood Glucose Urine WBC (Auto) Urine Creatinine Urine Total Protein Phenytoin Coronavirus (PCR) Crossmatch 06/10/20 06/10/20 06/10/20 05:54 07:40 11:40 WBC RBC Hgb Hct MCHC RDW Lymph % (Auto) [place] % (Auto) Eos % (Auto) Lymph # [place] # Lymph # (Auto) [place] # (Auto) Eos # (Auto) Seg Neutrophils % Seg Neuts % (Manual) Lymphocytes % (Manual) Seg Neutrophils # Seg Neutrophils # Man Lymphocytes # (Manual) Monocytes % (Manual) Eosinophils % (Manual) Monocytes # (Manual) Eosinophils # (Manual) D-Dimer Heparin Anti-Xa Level ABG pH POC ABG pCO2 POC ABG pO2 ABG pO2 ABG HCO3 ABG O2 Saturation ABG Base Excess ABG Hemoglobin ABG Oxyhemoglobin VBG pH ABG Sodium ABG Potassium ABG Glucose Oxyhemoglobin Sodium 146 H D Potassium Chloride Carbon Dioxide 20 L BUN 99 H Creatinine 1.9 H Glucose 121 H POC Glucose 127 H 138 H Lactic Acid Calcium 8.2 L Ferritin AST Alkaline Phosphatase Magnesium Lactate Dehydrogenase Total Creatine Kinase CK-MB (CK-2) C-Reactive Protein Total Protein Albumin Troponin T HDL Cholesterol Arterial Blood Glucose Urine WBC (Auto) Urine Creatinine Urine Total Protein Phenytoin Coronavirus (PCR) Crossmatch 06/10/20 06/10/20 06/10/20 14:44 17:31 23:22 WBC RBC Hgb Hct MCHC RDW Lymph % (Auto) [place] % (Auto) Eos % (Auto) Lymph # [place] # Lymph # (Auto) [place] # (Auto) Eos # (Auto) Seg Neutrophils % Seg Neuts % (Manual) Lymphocytes % (Manual) Seg Neutrophils # Seg Neutrophils # Man Lymphocytes # (Manual) Monocytes % (Manual) Eosinophils % (Manual) Monocytes # (Manual) Eosinophils # (Manual) D-Dimer Heparin Anti-Xa Level 0.17 L ABG pH POC ABG pCO2 POC ABG pO2 ABG pO2 ABG HCO3 ABG O2 Saturation ABG Base Excess ABG Hemoglobin ABG Oxyhemoglobin VBG pH ABG Sodium ABG Potassium ABG Glucose Oxyhemoglobin Sodium Potassium Chloride Carbon Dioxide BUN Creatinine Glucose POC Glucose 128 H 114 H Lactic Acid Calcium Ferritin AST Alkaline Phosphatase Magnesium Lactate Dehydrogenase Total Creatine Kinase CK-MB (CK-2) C-Reactive Protein Total Protein Albumin Troponin T HDL Cholesterol Arterial Blood Glucose Urine WBC (Auto) Urine Creatinine Urine Total Protein Phenytoin Coronavirus (PCR) Crossmatch 06/11/20 06/11/20 06/11/20 00:22 03:45 03:45 WBC 14.6 H RBC 2.77 L Hgb 7.9 L Hct 24.3 L MCHC RDW 16.8 H Lymph % (Auto) 6.6 L [place] % (Auto) 8.5 H Eos % (Auto) Lymph # 1.0 L [place] # 1.2 H Lymph # (Auto) [place] # (Auto) Eos # (Auto) Seg Neutrophils % 82.9 H Seg Neuts % (Manual) Lymphocytes % (Manual) Seg Neutrophils # 12.1 H Seg Neutrophils # Man Lymphocytes # (Manual) Monocytes % (Manual) Eosinophils % (Manual) Monocytes # (Manual) Eosinophils # (Manual) D-Dimer Heparin Anti-Xa Level 0.24 L ABG pH POC ABG pCO2 POC ABG pO2 ABG pO2 ABG HCO3 ABG O2 Saturation ABG Base Excess ABG Hemoglobin ABG Oxyhemoglobin VBG pH ABG Sodium ABG Potassium ABG Glucose Oxyhemoglobin Sodium Potassium Chloride Carbon Dioxide 20 L BUN 88 H Creatinine 1.5 H Glucose 111 H POC Glucose Lactic Acid Calcium 8.2 L Ferritin AST Alkaline Phosphatase Magnesium Lactate Dehydrogenase Total Creatine Kinase CK-MB (CK-2) C-Reactive Protein Total Protein Albumin Troponin T HDL Cholesterol Arterial Blood Glucose Urine WBC (Auto) Urine Creatinine Urine Total Protein Phenytoin Coronavirus (PCR) Crossmatch 06/11/20 06/11/20 06/11/20 06:03 10:22 11:11 WBC RBC Hgb Hct MCHC RDW Lymph % (Auto) [place] % (Auto) Eos % (Auto) Lymph # [place] # Lymph # (Auto) [place] # (Auto) Eos # (Auto) Seg Neutrophils % Seg Neuts % (Manual) Lymphocytes % (Manual) Seg Neutrophils # Seg Neutrophils # Man Lymphocytes # (Manual) Monocytes % (Manual) Eosinophils % (Manual) Monocytes # (Manual) Eosinophils # (Manual) D-Dimer Heparin Anti-Xa Level 0.26 L ABG pH POC ABG pCO2 POC ABG pO2 ABG pO2 ABG HCO3 ABG O2 Saturation ABG Base Excess ABG Hemoglobin 9.6 L ABG Oxyhemoglobin VBG pH ABG Sodium ABG Potassium ABG Glucose Oxyhemoglobin Sodium Potassium Chloride Carbon Dioxide BUN Creatinine Glucose POC Glucose 114 H Lactic Acid Calcium Ferritin AST Alkaline Phosphatase Magnesium Lactate Dehydrogenase Total Creatine Kinase CK-MB (CK-2) C-Reactive Protein Total Protein Albumin Troponin T HDL Cholesterol Arterial Blood Glucose Urine WBC (Auto) Urine Creatinine Urine Total Protein Phenytoin Coronavirus (PCR) Crossmatch 06/11/20 06/11/20 06/12/20 12:24 17:24 00:21 WBC RBC Hgb Hct MCHC RDW Lymph % (Auto) [place] % (Auto) Eos % (Auto) Lymph # [place] # Lymph # (Auto) [place] # (Auto) Eos # (Auto) Seg Neutrophils % Seg Neuts % (Manual) Lymphocytes % (Manual) Seg Neutrophils # Seg Neutrophils # Man Lymphocytes # (Manual) Monocytes % (Manual) Eosinophils % (Manual) Monocytes # (Manual) Eosinophils # (Manual) D-Dimer Heparin Anti-Xa Level ABG pH POC ABG pCO2 POC ABG pO2 ABG pO2 ABG HCO3 ABG O2 Saturation ABG Base Excess ABG Hemoglobin ABG Oxyhemoglobin VBG pH ABG Sodium ABG Potassium ABG Glucose Oxyhemoglobin Sodium Potassium Chloride Carbon Dioxide BUN Creatinine Glucose POC Glucose 119 H 126 H 117 H Lactic Acid Calcium Ferritin AST Alkaline Phosphatase Magnesium Lactate Dehydrogenase Total Creatine Kinase CK-MB (CK-2) C-Reactive Protein Total Protein Albumin Troponin T HDL Cholesterol Arterial Blood Glucose Urine WBC (Auto) Urine Creatinine Urine Total Protein Phenytoin Coronavirus (PCR) Crossmatch 06/12/20 06/12/20 06/12/20 02:46 02:46 05:46 WBC 13.2 H RBC 2.83 L Hgb 8.3 L Hct 24.3 L MCHC RDW 16.6 H Lymph % (Auto) 6.2 L [place] % (Auto) 9.5 H Eos % (Auto) Lymph # 0.8 L [place] # 1.3 H Lymph # (Auto) [place] # (Auto) Eos # (Auto) Seg Neutrophils % 81.9 H Seg Neuts % (Manual) Lymphocytes % (Manual) Seg Neutrophils # 10.9 H Seg Neutrophils # Man Lymphocytes # (Manual) Monocytes % (Manual) Eosinophils % (Manual) Monocytes # (Manual) Eosinophils # (Manual) D-Dimer Heparin Anti-Xa Level ABG pH POC ABG pCO2 POC ABG pO2 ABG pO2 ABG HCO3 ABG O2 Saturation ABG Base Excess ABG Hemoglobin ABG Oxyhemoglobin VBG pH ABG Sodium ABG Potassium ABG Glucose Oxyhemoglobin Sodium Potassium 3.5 L Chloride Carbon Dioxide BUN 77 H Creatinine 1.3 H Glucose POC Glucose 132 H Lactic Acid Calcium 8.3 L Ferritin AST Alkaline Phosphatase Magnesium Lactate Dehydrogenase Total Creatine Kinase CK-MB (CK-2) C-Reactive Protein Total Protein Albumin Troponin T HDL Cholesterol Arterial Blood Glucose Urine WBC (Auto) Urine Creatinine Urine Total Protein Phenytoin Coronavirus (PCR) Crossmatch 06/12/20 06/12/20 06/12/20 09:20 12:16 17:48 WBC RBC Hgb Hct MCHC RDW Lymph % (Auto) [place] % (Auto) Eos % (Auto) Lymph # [place] # Lymph # (Auto) [place] # (Auto) Eos # (Auto) Seg Neutrophils % Seg Neuts % (Manual) Lymphocytes % (Manual) Seg Neutrophils # Seg Neutrophils # Man Lymphocytes # (Manual) Monocytes % (Manual) Eosinophils % (Manual) Monocytes # (Manual) Eosinophils # (Manual) D-Dimer Heparin Anti-Xa Level ABG pH POC ABG pCO2 POC ABG pO2 ABG pO2 91.1 H ABG HCO3 ABG O2 Saturation ABG Base Excess ABG Hemoglobin ABG Oxyhemoglobin VBG pH ABG Sodium ABG Potassium ABG Glucose Oxyhemoglobin 94.8 L Sodium Potassium Chloride Carbon Dioxide BUN Creatinine Glucose POC Glucose 167 H 182 H Lactic Acid Calcium Ferritin AST Alkaline Phosphatase Magnesium Lactate Dehydrogenase Total Creatine Kinase CK-MB (CK-2) C-Reactive Protein Total Protein Albumin Troponin T HDL Cholesterol Arterial Blood Glucose Urine WBC (Auto) Urine Creatinine Urine Total Protein Phenytoin Coronavirus (PCR) Crossmatch 06/13/20 06/13/20 06/13/20 00:08 05:37 09:09 WBC RBC Hgb Hct MCHC RDW Lymph % (Auto) [place] % (Auto) Eos % (Auto) Lymph # [place] # Lymph # (Auto) [place] # (Auto) Eos # (Auto) Seg Neutrophils % Seg Neuts % (Manual) Lymphocytes % (Manual) Seg Neutrophils # Seg Neutrophils # Man Lymphocytes # (Manual) Monocytes % (Manual) Eosinophils % (Manual) Monocytes # (Manual) Eosinophils # (Manual) D-Dimer Heparin Anti-Xa Level 0.86 H ABG pH POC ABG pCO2 POC ABG pO2 ABG pO2 ABG HCO3 ABG O2 Saturation ABG Base Excess ABG Hemoglobin ABG Oxyhemoglobin VBG pH ABG Sodium ABG Potassium ABG Glucose Oxyhemoglobin Sodium Potassium Chloride Carbon Dioxide BUN Creatinine Glucose POC Glucose 142 H 119 H Lactic Acid Calcium Ferritin AST Alkaline Phosphatase Magnesium Lactate Dehydrogenase Total Creatine Kinase CK-MB (CK-2) C-Reactive Protein Total Protein Albumin Troponin T HDL Cholesterol Arterial Blood Glucose Urine WBC (Auto) Urine Creatinine Urine Total Protein Phenytoin Coronavirus (PCR) Crossmatch 06/13/20 06/13/20 06/13/20 12:28 17:55 21:17 WBC RBC Hgb Hct MCHC RDW Lymph % (Auto) [place] % (Auto) Eos % (Auto) Lymph # [place] # Lymph # (Auto) [place] # (Auto) Eos # (Auto) Seg Neutrophils % Seg Neuts % (Manual) Lymphocytes % (Manual) Seg Neutrophils # Seg Neutrophils # Man Lymphocytes # (Manual) Monocytes % (Manual) Eosinophils % (Manual) Monocytes # (Manual) Eosinophils # (Manual) D-Dimer Heparin Anti-Xa Level ABG pH POC ABG pCO2 POC ABG pO2 ABG pO2 ABG HCO3 ABG O2 Saturation ABG Base Excess ABG Hemoglobin ABG Oxyhemoglobin VBG pH ABG Sodium ABG Potassium ABG Glucose Oxyhemoglobin Sodium Potassium Chloride Carbon Dioxide BUN 61 H Creatinine Glucose 131 H POC Glucose 165 H 174 H Lactic Acid Calcium Ferritin AST Alkaline Phosphatase Magnesium Lactate Dehydrogenase Total Creatine Kinase CK-MB (CK-2) C-Reactive Protein Total Protein Albumin Troponin T HDL Cholesterol Arterial Blood Glucose Urine WBC (Auto) Urine Creatinine Urine Total Protein Phenytoin Coronavirus (PCR) Crossmatch 06/13/20 06/13/20 06/14/20 21:17 23:50 05:34 WBC RBC Hgb Hct MCHC RDW Lymph % (Auto) [place] % (Auto) Eos % (Auto) Lymph # [place] # Lymph # (Auto) [place] # (Auto) Eos # (Auto) Seg Neutrophils % Seg Neuts % (Manual) Lymphocytes % (Manual) Seg Neutrophils # Seg Neutrophils # Man Lymphocytes # (Manual) Monocytes % (Manual) Eosinophils % (Manual) Monocytes # (Manual) Eosinophils # (Manual) D-Dimer Heparin Anti-Xa Level 0.72 H ABG pH POC ABG pCO2 POC ABG pO2 ABG pO2 ABG HCO3 ABG O2 Saturation ABG Base Excess ABG Hemoglobin ABG Oxyhemoglobin VBG pH ABG Sodium ABG Potassium ABG Glucose Oxyhemoglobin Sodium 146 H Potassium Chloride 107.6 H Carbon Dioxide BUN 61 H Creatinine 1.3 H Glucose 135 H POC Glucose 146 H Lactic Acid Calcium Ferritin AST Alkaline Phosphatase Magnesium Lactate Dehydrogenase Total Creatine Kinase CK-MB (CK-2) C-Reactive Protein Total Protein Albumin Troponin T HDL Cholesterol Arterial Blood Glucose Urine WBC (Auto) Urine Creatinine Urine Total Protein Phenytoin Coronavirus (PCR) Crossmatch 06/14/20 06/14/20 06/14/20 06:11 09:28 11:30 WBC RBC Hgb Hct MCHC RDW Lymph % (Auto) [place] % (Auto) Eos % (Auto) Lymph # [place] # Lymph # (Auto) [place] # (Auto) Eos # (Auto) Seg Neutrophils % Seg Neuts % (Manual) Lymphocytes % (Manual) Seg Neutrophils # Seg Neutrophils # Man Lymphocytes # (Manual) Monocytes % (Manual) Eosinophils % (Manual) Monocytes # (Manual) Eosinophils # (Manual) D-Dimer Heparin Anti-Xa Level 0.90 H ABG pH POC ABG pCO2 POC ABG pO2 ABG pO2 ABG HCO3 ABG O2 Saturation ABG Base Excess ABG Hemoglobin ABG Oxyhemoglobin VBG pH ABG Sodium ABG Potassium ABG Glucose Oxyhemoglobin Sodium Potassium Chloride Carbon Dioxide BUN Creatinine Glucose POC Glucose 141 H 186 H Lactic Acid Calcium Ferritin AST Alkaline Phosphatase Magnesium Lactate Dehydrogenase Total Creatine Kinase CK-MB (CK-2) C-Reactive Protein Total Protein Albumin Troponin T HDL Cholesterol Arterial Blood Glucose Urine WBC (Auto) Urine Creatinine Urine Total Protein Phenytoin Coronavirus (PCR) Crossmatch 06/14/20 06/14/20 06/14/20 16:07 18:16 23:51 WBC RBC Hgb Hct MCHC RDW Lymph % (Auto) [place] % (Auto) Eos % (Auto) Lymph # [place] # Lymph # (Auto) [place] # (Auto) Eos # (Auto) Seg Neutrophils % Seg Neuts % (Manual) Lymphocytes % (Manual) Seg Neutrophils # Seg Neutrophils # Man Lymphocytes # (Manual) Monocytes % (Manual) Eosinophils % (Manual) Monocytes # (Manual) Eosinophils # (Manual) D-Dimer Heparin Anti-Xa Level 0.82 H ABG pH POC ABG pCO2 POC ABG pO2 ABG pO2 ABG HCO3 ABG O2 Saturation ABG Base Excess ABG Hemoglobin ABG Oxyhemoglobin VBG pH ABG Sodium ABG Potassium ABG Glucose Oxyhemoglobin Sodium Potassium Chloride Carbon Dioxide BUN Creatinine Glucose POC Glucose 106 H 154 H Lactic Acid Calcium Ferritin AST Alkaline Phosphatase Magnesium Lactate Dehydrogenase Total Creatine Kinase CK-MB (CK-2) C-Reactive Protein Total Protein Albumin Troponin T HDL Cholesterol Arterial Blood Glucose Urine WBC (Auto) Urine Creatinine Urine Total Protein Phenytoin Coronavirus (PCR) Crossmatch 06/15/20 06/15/20 06/15/20 04:24 04:24 05:59 WBC RBC 2.75 L Hgb 7.9 L Hct 24.0 L MCHC RDW 16.4 H Lymph % (Auto) 12.9 L [place] % (Auto) 8.7 H Eos % (Auto) 4.6 H Lymph # 1.1 L [place] # Lymph # (Auto) [place] # (Auto) Eos # (Auto) Seg Neutrophils % 73.2 H Seg Neuts % (Manual) Lymphocytes % (Manual) Seg Neutrophils # Seg Neutrophils # Man Lymphocytes # (Manual) Monocytes % (Manual) Eosinophils % (Manual) Monocytes # (Manual) Eosinophils # (Manual) D-Dimer Heparin Anti-Xa Level ABG pH POC ABG pCO2 POC ABG pO2 ABG pO2 ABG HCO3 ABG O2 Saturation ABG Base Excess ABG Hemoglobin ABG Oxyhemoglobin VBG pH ABG Sodium ABG Potassium ABG Glucose Oxyhemoglobin Sodium Potassium 3.4 L Chloride Carbon Dioxide BUN 55 H Creatinine 1.3 H Glucose 142 H POC Glucose 131 H Lactic Acid Calcium Ferritin AST Alkaline Phosphatase Magnesium Lactate Dehydrogenase Total Creatine Kinase CK-MB (CK-2) C-Reactive Protein Total Protein Albumin Troponin T HDL Cholesterol Arterial Blood Glucose Urine WBC (Auto) Urine Creatinine Urine Total Protein Phenytoin Coronavirus (PCR) Crossmatch 06/15/20 06/15/20 06/16/20 12:33 17:07 00:22 WBC RBC Hgb Hct MCHC RDW Lymph % (Auto) [place] % (Auto) Eos % (Auto) Lymph # [place] # Lymph # (Auto) [place] # (Auto) Eos # (Auto) Seg Neutrophils % Seg Neuts % (Manual) Lymphocytes % (Manual) Seg Neutrophils # Seg Neutrophils # Man Lymphocytes # (Manual) Monocytes % (Manual) Eosinophils % (Manual) Monocytes # (Manual) Eosinophils # (Manual) D-Dimer Heparin Anti-Xa Level 0.21 L ABG pH POC ABG pCO2 POC ABG pO2 ABG pO2 ABG HCO3 ABG O2 Saturation ABG Base Excess ABG Hemoglobin ABG Oxyhemoglobin VBG pH ABG Sodium ABG Potassium ABG Glucose Oxyhemoglobin Sodium Potassium Chloride Carbon Dioxide BUN Creatinine Glucose POC Glucose 180 H 185 H Lactic Acid Calcium Ferritin AST Alkaline Phosphatase Magnesium Lactate Dehydrogenase Total Creatine Kinase CK-MB (CK-2) C-Reactive Protein Total Protein Albumin Troponin T HDL Cholesterol Arterial Blood Glucose Urine WBC (Auto) Urine Creatinine Urine Total Protein Phenytoin Coronavirus (PCR) Crossmatch 06/16/20 06/16/20 06/16/20 01:45 08:06 09:15 WBC RBC Hgb Hct MCHC RDW Lymph % (Auto) [place] % (Auto) Eos % (Auto) Lymph # [place] # Lymph # (Auto) [place] # (Auto) Eos # (Auto) Seg Neutrophils % Seg Neuts % (Manual) Lymphocytes % (Manual) Seg Neutrophils # Seg Neutrophils # Man Lymphocytes # (Manual) Monocytes % (Manual) Eosinophils % (Manual) Monocytes # (Manual) Eosinophils # (Manual) D-Dimer Heparin Anti-Xa Level ABG pH POC ABG pCO2 POC ABG pO2 ABG pO2 ABG HCO3 ABG O2 Saturation ABG Base Excess ABG Hemoglobin ABG Oxyhemoglobin VBG pH ABG Sodium ABG Potassium ABG Glucose Oxyhemoglobin Sodium Potassium Chloride Carbon Dioxide BUN 49 H Creatinine Glucose 154 H POC Glucose 140 H 171 H Lactic Acid Calcium Ferritin AST Alkaline Phosphatase Magnesium Lactate Dehydrogenase Total Creatine Kinase CK-MB (CK-2) C-Reactive Protein Total Protein Albumin Troponin T HDL Cholesterol Arterial Blood Glucose Urine WBC (Auto) Urine Creatinine Urine Total Protein Phenytoin Coronavirus (PCR) Crossmatch 06/16/20 06/16/20 06/16/20 10:46 12:33 17:54 WBC RBC Hgb Hct MCHC RDW Lymph % (Auto) [place] % (Auto) Eos % (Auto) Lymph # [place] # Lymph # (Auto) [place] # (Auto) Eos # (Auto) Seg Neutrophils % Seg Neuts % (Manual) Lymphocytes % (Manual) Seg Neutrophils # Seg Neutrophils # Man Lymphocytes # (Manual) Monocytes % (Manual) Eosinophils % (Manual) Monocytes # (Manual) Eosinophils # (Manual) D-Dimer Heparin Anti-Xa Level 0.12 L ABG pH POC ABG pCO2 POC ABG pO2 ABG pO2 ABG HCO3 ABG O2 Saturation ABG Base Excess ABG Hemoglobin ABG Oxyhemoglobin VBG pH ABG Sodium ABG Potassium ABG Glucose Oxyhemoglobin Sodium Potassium Chloride Carbon Dioxide BUN Creatinine Glucose POC Glucose 166 H 151 H Lactic Acid Calcium Ferritin AST Alkaline Phosphatase Magnesium Lactate Dehydrogenase Total Creatine Kinase CK-MB (CK-2) C-Reactive Protein Total Protein Albumin Troponin T HDL Cholesterol Arterial Blood Glucose Urine WBC (Auto) Urine Creatinine Urine Total Protein Phenytoin Coronavirus (PCR) Crossmatch 06/16/20 06/17/20 06/17/20 18:47 00:00 02:19 WBC RBC Hgb Hct MCHC RDW Lymph % (Auto) [place] % (Auto) Eos % (Auto) Lymph # [place] # Lymph # (Auto) [place] # (Auto) Eos # (Auto) Seg Neutrophils % Seg Neuts % (Manual) Lymphocytes % (Manual) Seg Neutrophils # Seg Neutrophils # Man Lymphocytes # (Manual) Monocytes % (Manual) Eosinophils % (Manual) Monocytes # (Manual) Eosinophils # (Manual) D-Dimer Heparin Anti-Xa Level 0.73 H 0.77 H ABG pH POC ABG pCO2 POC ABG pO2 ABG pO2 ABG HCO3 ABG O2 Saturation ABG Base Excess ABG Hemoglobin ABG Oxyhemoglobin VBG pH ABG Sodium ABG Potassium ABG Glucose Oxyhemoglobin Sodium Potassium Chloride Carbon Dioxide BUN Creatinine Glucose POC Glucose 139 H Lactic Acid Calcium Ferritin AST Alkaline Phosphatase Magnesium Lactate Dehydrogenase Total Creatine Kinase CK-MB (CK-2) C-Reactive Protein Total Protein Albumin Troponin T HDL Cholesterol Arterial Blood Glucose Urine WBC (Auto) Urine Creatinine Urine Total Protein Phenytoin Coronavirus (PCR) Crossmatch 06/17/20 06/17/20 06/17/20 06:07 11:42 16:43 WBC RBC Hgb Hct MCHC RDW Lymph % (Auto) [place] % (Auto) Eos % (Auto) Lymph # [place] # Lymph # (Auto) [place] # (Auto) Eos # (Auto) Seg Neutrophils % Seg Neuts % (Manual) Lymphocytes % (Manual) Seg Neutrophils # Seg Neutrophils # Man Lymphocytes # (Manual) Monocytes % (Manual) Eosinophils % (Manual) Monocytes # (Manual) Eosinophils # (Manual) D-Dimer Heparin Anti-Xa Level 0.73 H ABG pH POC ABG pCO2 POC ABG pO2 ABG pO2 ABG HCO3 ABG O2 Saturation ABG Base Excess ABG Hemoglobin ABG Oxyhemoglobin VBG pH ABG Sodium ABG Potassium ABG Glucose Oxyhemoglobin Sodium Potassium Chloride Carbon Dioxide BUN Creatinine Glucose POC Glucose 169 H 169 H Lactic Acid Calcium Ferritin AST Alkaline Phosphatase Magnesium Lactate Dehydrogenase Total Creatine Kinase CK-MB (CK-2) C-Reactive Protein Total Protein Albumin Troponin T HDL Cholesterol Arterial Blood Glucose Urine WBC (Auto) Urine Creatinine Urine Total Protein Phenytoin Coronavirus (PCR) Crossmatch 06/17/20 06/17/20 06/17/20 18:18 23:08 23:16 WBC RBC Hgb Hct MCHC RDW Lymph % (Auto) [place] % (Auto) Eos % (Auto) Lymph # [place] # Lymph # (Auto) [place] # (Auto) Eos # (Auto) Seg Neutrophils % Seg Neuts % (Manual) Lymphocytes % (Manual) Seg Neutrophils # Seg Neutrophils # Man Lymphocytes # (Manual) Monocytes % (Manual) Eosinophils % (Manual) Monocytes # (Manual) Eosinophils # (Manual) D-Dimer Heparin Anti-Xa Level 0.71 H ABG pH POC ABG pCO2 POC ABG pO2 ABG pO2 ABG HCO3 ABG O2 Saturation ABG Base Excess ABG Hemoglobin ABG Oxyhemoglobin VBG pH ABG Sodium ABG Potassium ABG Glucose Oxyhemoglobin Sodium Potassium Chloride Carbon Dioxide BUN Creatinine Glucose POC Glucose 159 H 134 H Lactic Acid Calcium Ferritin AST Alkaline Phosphatase Magnesium Lactate Dehydrogenase Total Creatine Kinase CK-MB (CK-2) C-Reactive Protein Total Protein Albumin Troponin T HDL Cholesterol Arterial Blood Glucose Urine WBC (Auto) Urine Creatinine Urine Total Protein Phenytoin Coronavirus (PCR) Crossmatch 06/18/20 06/18/20 06/18/20 04:42 05:52 11:50 WBC RBC Hgb Hct MCHC RDW Lymph % (Auto) [place] % (Auto) Eos % (Auto) Lymph # [place] # Lymph # (Auto) [place] # (Auto) Eos # (Auto) Seg Neutrophils % Seg Neuts % (Manual) Lymphocytes % (Manual) Seg Neutrophils # Seg Neutrophils # Man Lymphocytes # (Manual) Monocytes % (Manual) Eosinophils % (Manual) Monocytes # (Manual) Eosinophils # (Manual) D-Dimer Heparin Anti-Xa Level ABG pH POC ABG pCO2 POC ABG pO2 ABG pO2 ABG HCO3 ABG O2 Saturation ABG Base Excess ABG Hemoglobin ABG Oxyhemoglobin VBG pH ABG Sodium ABG Potassium ABG Glucose Oxyhemoglobin Sodium Potassium Chloride Carbon Dioxide BUN 44 H Creatinine Glucose 115 H POC Glucose 171 H 167 H Lactic Acid Calcium Ferritin AST Alkaline Phosphatase Magnesium Lactate Dehydrogenase Total Creatine Kinase CK-MB (CK-2) C-Reactive Protein Total Protein Albumin Troponin T HDL Cholesterol Arterial Blood Glucose Urine WBC (Auto) Urine Creatinine Urine Total Protein Phenytoin Coronavirus (PCR) Crossmatch 06/18/20 06/19/20 06/19/20 23:46 05:48 07:52 WBC RBC Hgb Hct MCHC RDW Lymph % (Auto) [place] % (Auto) Eos % (Auto) Lymph # [place] # Lymph # (Auto) [place] # (Auto) Eos # (Auto) Seg Neutrophils % Seg Neuts % (Manual) Lymphocytes % (Manual) Seg Neutrophils # Seg Neutrophils # Man Lymphocytes # (Manual) Monocytes % (Manual) Eosinophils % (Manual) Monocytes # (Manual) Eosinophils # (Manual) D-Dimer Heparin Anti-Xa Level ABG pH POC ABG pCO2 POC ABG pO2 ABG pO2 ABG HCO3 ABG O2 Saturation ABG Base Excess ABG Hemoglobin ABG Oxyhemoglobin VBG pH ABG Sodium ABG Potassium ABG Glucose Oxyhemoglobin Sodium Potassium Chloride Carbon Dioxide BUN Creatinine Glucose POC Glucose 130 H 207 H 175 H Lactic Acid Calcium Ferritin AST Alkaline Phosphatase Magnesium Lactate Dehydrogenase Total Creatine Kinase CK-MB (CK-2) C-Reactive Protein Total Protein Albumin Troponin T HDL Cholesterol Arterial Blood Glucose Urine WBC (Auto) Urine Creatinine Urine Total Protein Phenytoin Coronavirus (PCR) Crossmatch 06/19/20 06/19/20 06/20/20 11:42 22:54 05:17 WBC RBC Hgb Hct MCHC RDW Lymph % (Auto) [place] % (Auto) Eos % (Auto) Lymph # [place] # Lymph # (Auto) [place] # (Auto) Eos # (Auto) Seg Neutrophils % Seg Neuts % (Manual) Lymphocytes % (Manual) Seg Neutrophils # Seg Neutrophils # Man Lymphocytes # (Manual) Monocytes % (Manual) Eosinophils % (Manual) Monocytes # (Manual) Eosinophils # (Manual) D-Dimer Heparin Anti-Xa Level ABG pH POC ABG pCO2 POC ABG pO2 ABG pO2 ABG HCO3 ABG O2 Saturation ABG Base Excess ABG Hemoglobin ABG Oxyhemoglobin VBG pH ABG Sodium ABG Potassium ABG Glucose Oxyhemoglobin Sodium Potassium Chloride Carbon Dioxide BUN Creatinine Glucose POC Glucose 166 H 135 H 218 H Lactic Acid Calcium Ferritin AST Alkaline Phosphatase Magnesium Lactate Dehydrogenase Total Creatine Kinase CK-MB (CK-2) C-Reactive Protein Total Protein Albumin Troponin T HDL Cholesterol Arterial Blood Glucose Urine WBC (Auto) Urine Creatinine Urine Total Protein Phenytoin Coronavirus (PCR) Crossmatch 06/20/20 06/20/20 06/20/20 12:04 16:25 16:35 WBC RBC Hgb Hct MCHC RDW Lymph % (Auto) [place] % (Auto) Eos % (Auto) Lymph # [place] # Lymph # (Auto) [place] # (Auto) Eos # (Auto) Seg Neutrophils % Seg Neuts % (Manual) Lymphocytes % (Manual) Seg Neutrophils # Seg Neutrophils # Man Lymphocytes # (Manual) Monocytes % (Manual) Eosinophils % (Manual) Monocytes # (Manual) Eosinophils # (Manual) D-Dimer Heparin Anti-Xa Level ABG pH POC ABG pCO2 POC ABG pO2 ABG pO2 59.6 L ABG HCO3 28.7 H ABG O2 Saturation 93.5 L ABG Base Excess 3.4 H ABG Hemoglobin 7.2 L ABG Oxyhemoglobin VBG pH ABG Sodium ABG Potassium ABG Glucose Oxyhemoglobin 91.3 L Sodium Potassium Chloride Carbon Dioxide BUN Creatinine Glucose POC Glucose 194 H 137 H Lactic Acid Calcium Ferritin AST Alkaline Phosphatase Magnesium Lactate Dehydrogenase Total Creatine Kinase CK-MB (CK-2) C-Reactive Protein Total Protein Albumin Troponin T HDL Cholesterol Arterial Blood Glucose Urine WBC (Auto) Urine Creatinine Urine Total Protein Phenytoin Coronavirus (PCR) Crossmatch 06/20/20 06/21/20 06/21/20 23:59 06:25 12:01 WBC RBC Hgb Hct MCHC RDW Lymph % (Auto) [place] % (Auto) Eos % (Auto) Lymph # [place] # Lymph # (Auto) [place] # (Auto) Eos # (Auto) Seg Neutrophils % Seg Neuts % (Manual) Lymphocytes % (Manual) Seg Neutrophils # Seg Neutrophils # Man Lymphocytes # (Manual) Monocytes % (Manual) Eosinophils % (Manual) Monocytes # (Manual) Eosinophils # (Manual) D-Dimer Heparin Anti-Xa Level ABG pH POC ABG pCO2 POC ABG pO2 ABG pO2 ABG HCO3 ABG O2 Saturation ABG Base Excess ABG Hemoglobin ABG Oxyhemoglobin VBG pH ABG Sodium ABG Potassium ABG Glucose Oxyhemoglobin Sodium Potassium Chloride Carbon Dioxide BUN Creatinine Glucose POC Glucose 156 H 177 H 195 H Lactic Acid Calcium Ferritin AST Alkaline Phosphatase Magnesium Lactate Dehydrogenase Total Creatine Kinase CK-MB (CK-2) C-Reactive Protein Total Protein Albumin Troponin T HDL Cholesterol Arterial Blood Glucose Urine WBC (Auto) Urine Creatinine Urine Total Protein Phenytoin Coronavirus (PCR) Crossmatch 06/21/20 06/21/20 06/22/20 17:04 21:51 05:06 WBC RBC Hgb Hct MCHC RDW Lymph % (Auto) [place] % (Auto) Eos % (Auto) Lymph # [place] # Lymph # (Auto) [place] # (Auto) Eos # (Auto) Seg Neutrophils % Seg Neuts % (Manual) Lymphocytes % (Manual) Seg Neutrophils # Seg Neutrophils # Man Lymphocytes # (Manual) Monocytes % (Manual) Eosinophils % (Manual) Monocytes # (Manual) Eosinophils # (Manual) D-Dimer Heparin Anti-Xa Level ABG pH POC ABG pCO2 POC ABG pO2 ABG pO2 ABG HCO3 ABG O2 Saturation ABG Base Excess ABG Hemoglobin ABG Oxyhemoglobin VBG pH ABG Sodium ABG Potassium ABG Glucose Oxyhemoglobin Sodium Potassium Chloride Carbon Dioxide BUN Creatinine Glucose POC Glucose 156 H 154 H 167 H Lactic Acid Calcium Ferritin AST Alkaline Phosphatase Magnesium Lactate Dehydrogenase Total Creatine Kinase CK-MB (CK-2) C-Reactive Protein Total Protein Albumin Troponin T HDL Cholesterol Arterial Blood Glucose Urine WBC (Auto) Urine Creatinine Urine Total Protein Phenytoin Coronavirus (PCR) Crossmatch 06/22/20 06/22/20 06/22/20 11:20 15:27 16:58 WBC RBC Hgb Hct MCHC RDW Lymph % (Auto) [place] % (Auto) Eos % (Auto) Lymph # [place] # Lymph # (Auto) [place] # (Auto) Eos # (Auto) Seg Neutrophils % Seg Neuts % (Manual) Lymphocytes % (Manual) Seg Neutrophils # Seg Neutrophils # Man Lymphocytes # (Manual) Monocytes % (Manual) Eosinophils % (Manual) Monocytes # (Manual) Eosinophils # (Manual) D-Dimer Heparin Anti-Xa Level ABG pH 7.206 L POC ABG pCO2 79.9 H POC ABG pO2 ABG pO2 ABG HCO3 ABG O2 Saturation ABG Base Excess ABG Hemoglobin 8.3 L ABG Oxyhemoglobin VBG pH ABG Sodium ABG Potassium ABG Glucose Oxyhemoglobin Sodium Potassium Chloride Carbon Dioxide BUN Creatinine Glucose POC Glucose 181 H 230 H Lactic Acid Calcium Ferritin AST Alkaline Phosphatase Magnesium Lactate Dehydrogenase Total Creatine Kinase CK-MB (CK-2) C-Reactive Protein Total Protein Albumin Troponin T HDL Cholesterol Arterial Blood Glucose Urine WBC (Auto) Urine Creatinine Urine Total Protein Phenytoin Coronavirus (PCR) Crossmatch 06/22/20 06/23/20 06/23/20 22:26 05:49 05:49 WBC RBC 2.58 L Hgb 7.4 L Hct 23.2 L MCHC RDW 17.0 H Lymph % (Auto) [place] % (Auto) 11.2 H Eos % (Auto) Lymph # 1.0 L [place] # Lymph # (Auto) [place] # (Auto) Eos # (Auto) Seg Neutrophils % Seg Neuts % (Manual) Lymphocytes % (Manual) Seg Neutrophils # Seg Neutrophils # Man Lymphocytes # (Manual) Monocytes % (Manual) Eosinophils % (Manual) Monocytes # (Manual) Eosinophils # (Manual) D-Dimer Heparin Anti-Xa Level ABG pH POC ABG pCO2 POC ABG pO2 ABG pO2 ABG HCO3 ABG O2 Saturation ABG Base Excess ABG Hemoglobin ABG Oxyhemoglobin VBG pH ABG Sodium ABG Potassium ABG Glucose Oxyhemoglobin Sodium Potassium Chloride Carbon Dioxide BUN 68 H Creatinine 2.4 H Glucose 198 H POC Glucose 195 H Lactic Acid Calcium Ferritin AST Alkaline Phosphatase Magnesium Lactate Dehydrogenase Total Creatine Kinase CK-MB (CK-2) C-Reactive Protein Total Protein Albumin Troponin T HDL Cholesterol Arterial Blood Glucose Urine WBC (Auto) Urine Creatinine Urine Total Protein Phenytoin Coronavirus (PCR) Crossmatch 06/23/20 06/23/20 06/23/20 05:50 12:29 12:34 WBC RBC Hgb Hct MCHC RDW Lymph % (Auto) [place] % (Auto) Eos % (Auto) Lymph # [place] # Lymph # (Auto) [place] # (Auto) Eos # (Auto) Seg Neutrophils % Seg Neuts % (Manual) Lymphocytes % (Manual) Seg Neutrophils # Seg Neutrophils # Man Lymphocytes # (Manual) Monocytes % (Manual) Eosinophils % (Manual) Monocytes # (Manual) Eosinophils # (Manual) D-Dimer Heparin Anti-Xa Level ABG pH POC ABG pCO2 54.7 H POC ABG pO2 68.8 L ABG pO2 ABG HCO3 ABG O2 Saturation ABG Base Excess ABG Hemoglobin 9.8 L ABG Oxyhemoglobin 92.6 L VBG pH ABG Sodium ABG Potassium ABG Glucose Oxyhemoglobin Sodium Potassium Chloride Carbon Dioxide BUN Creatinine Glucose POC Glucose 202 H 218 H Lactic Acid Calcium Ferritin AST Alkaline Phosphatase Magnesium Lactate Dehydrogenase Total Creatine Kinase CK-MB (CK-2) C-Reactive Protein Total Protein Albumin Troponin T HDL Cholesterol Arterial Blood Glucose Urine WBC (Auto) Urine Creatinine Urine Total Protein Phenytoin Coronavirus (PCR) Crossmatch 06/23/20 06/23/20 06/24/20 16:02 22:22 01:06 WBC RBC Hgb Hct MCHC RDW Lymph % (Auto) [place] % (Auto) Eos % (Auto) Lymph # [place] # Lymph # (Auto) [place] # (Auto) Eos # (Auto) Seg Neutrophils % Seg Neuts % (Manual) Lymphocytes % (Manual) Seg Neutrophils # Seg Neutrophils # Man Lymphocytes # (Manual) Monocytes % (Manual) Eosinophils % (Manual) Monocytes # (Manual) Eosinophils # (Manual) D-Dimer Heparin Anti-Xa Level ABG pH POC ABG pCO2 POC ABG pO2 ABG pO2 ABG HCO3 ABG O2 Saturation ABG Base Excess ABG Hemoglobin ABG Oxyhemoglobin VBG pH ABG Sodium ABG Potassium ABG Glucose Oxyhemoglobin Sodium Potassium Chloride Carbon Dioxide BUN Creatinine Glucose POC Glucose 190 H 166 H 171 H Lactic Acid Calcium Ferritin AST Alkaline Phosphatase Magnesium Lactate Dehydrogenase Total Creatine Kinase CK-MB (CK-2) C-Reactive Protein Total Protein Albumin Troponin T HDL Cholesterol Arterial Blood Glucose Urine WBC (Auto) Urine Creatinine Urine Total Protein Phenytoin Coronavirus (PCR) Crossmatch 06/24/20 06/24/20 06/24/20 04:48 05:35 11:48 WBC RBC Hgb Hct MCHC RDW Lymph % (Auto) [place] % (Auto) Eos % (Auto) Lymph # [place] # Lymph # (Auto) [place] # (Auto) Eos # (Auto) Seg Neutrophils % Seg Neuts % (Manual) Lymphocytes % (Manual) Seg Neutrophils # Seg Neutrophils # Man Lymphocytes # (Manual) Monocytes % (Manual) Eosinophils % (Manual) Monocytes # (Manual) Eosinophils # (Manual) D-Dimer Heparin Anti-Xa Level ABG pH POC ABG pCO2 POC ABG pO2 ABG pO2 ABG HCO3 ABG O2 Saturation ABG Base Excess ABG Hemoglobin ABG Oxyhemoglobin VBG pH ABG Sodium ABG Potassium ABG Glucose Oxyhemoglobin Sodium Potassium Chloride Carbon Dioxide BUN 75 H Creatinine 2.6 H Glucose 179 H POC Glucose 172 H 153 H Lactic Acid Calcium Ferritin AST Alkaline Phosphatase Magnesium Lactate Dehydrogenase Total Creatine Kinase CK-MB (CK-2) C-Reactive Protein Total Protein Albumin Troponin T HDL Cholesterol Arterial Blood Glucose Urine WBC (Auto) Urine Creatinine Urine Total Protein Phenytoin Coronavirus (PCR) Crossmatch 06/24/20 06/24/20 06/25/20 16:38 21:52 12:00 WBC RBC Hgb Hct MCHC RDW Lymph % (Auto) [place] % (Auto) Eos % (Auto) Lymph # [place] # Lymph # (Auto) [place] # (Auto) Eos # (Auto) Seg Neutrophils % Seg Neuts % (Manual) Lymphocytes % (Manual) Seg Neutrophils # Seg Neutrophils # Man Lymphocytes # (Manual) Monocytes % (Manual) Eosinophils % (Manual) Monocytes # (Manual) Eosinophils # (Manual) D-Dimer Heparin Anti-Xa Level ABG pH POC ABG pCO2 POC ABG pO2 ABG pO2 ABG HCO3 ABG O2 Saturation ABG Base Excess ABG Hemoglobin ABG Oxyhemoglobin VBG pH ABG Sodium ABG Potassium ABG Glucose Oxyhemoglobin Sodium Potassium Chloride Carbon Dioxide BUN Creatinine Glucose POC Glucose 123 H 115 H 203 H Lactic Acid Calcium Ferritin AST Alkaline Phosphatase Magnesium Lactate Dehydrogenase Total Creatine Kinase CK-MB (CK-2) C-Reactive Protein Total Protein Albumin Troponin T HDL Cholesterol Arterial Blood Glucose Urine WBC (Auto) Urine Creatinine Urine Total Protein Phenytoin Coronavirus (PCR) Crossmatch 06/25/20 06/25/20 06/25/20 15:43 16:37 23:02 WBC RBC Hgb Hct MCHC RDW Lymph % (Auto) [place] % (Auto) Eos % (Auto) Lymph # [place] # Lymph # (Auto) [place] # (Auto) Eos # (Auto) Seg Neutrophils % Seg Neuts % (Manual) Lymphocytes % (Manual) Seg Neutrophils # Seg Neutrophils # Man Lymphocytes # (Manual) Monocytes % (Manual) Eosinophils % (Manual) Monocytes # (Manual) Eosinophils # (Manual) D-Dimer Heparin Anti-Xa Level ABG pH POC ABG pCO2 POC ABG pO2 ABG pO2 ABG HCO3 ABG O2 Saturation ABG Base Excess ABG Hemoglobin ABG Oxyhemoglobin VBG pH ABG Sodium ABG Potassium ABG Glucose Oxyhemoglobin Sodium Potassium Chloride Carbon Dioxide BUN 71 H Creatinine 1.8 H Glucose 170 H POC Glucose 191 H 126 H Lactic Acid Calcium 8.2 L Ferritin AST Alkaline Phosphatase Magnesium Lactate Dehydrogenase Total Creatine Kinase CK-MB (CK-2) C-Reactive Protein Total Protein Albumin Troponin T HDL Cholesterol Arterial Blood Glucose Urine WBC (Auto) Urine Creatinine Urine Total Protein Phenytoin Coronavirus (PCR) Crossmatch 06/26/20 06/26/20 06/26/20 06:34 06:34 09:27 WBC RBC 2.41 L Hgb 6.9 L Hct 21.5 L MCHC RDW 16.7 H Lymph % (Auto) 10.9 L [place] % (Auto) 9.6 H Eos % (Auto) Lymph # 0.7 L [place] # Lymph # (Auto) [place] # (Auto) Eos # (Auto) Seg Neutrophils % 75.4 H Seg Neuts % (Manual) Lymphocytes % (Manual) Seg Neutrophils # Seg Neutrophils # Man Lymphocytes # (Manual) Monocytes % (Manual) Eosinophils % (Manual) Monocytes # (Manual) Eosinophils # (Manual) D-Dimer Heparin Anti-Xa Level ABG pH POC ABG pCO2 POC ABG pO2 ABG pO2 ABG HCO3 ABG O2 Saturation ABG Base Excess ABG Hemoglobin ABG Oxyhemoglobin VBG pH ABG Sodium ABG Potassium ABG Glucose Oxyhemoglobin Sodium Potassium Chloride Carbon Dioxide BUN 77 H Creatinine 1.9 H Glucose 190 H POC Glucose Lactic Acid Calcium Ferritin AST Alkaline Phosphatase Magnesium Lactate Dehydrogenase Total Creatine Kinase CK-MB (CK-2) C-Reactive Protein Total Protein Albumin Troponin T HDL Cholesterol Arterial Blood Glucose Urine WBC (Auto) Urine Creatinine Urine Total Protein Phenytoin Coronavirus (PCR) Crossmatch See Detail 06/26/20 06/26/20 06/26/20 12:15 16:28 17:28 WBC RBC Hgb Hct MCHC RDW Lymph % (Auto) [place] % (Auto) Eos % (Auto) Lymph # [place] # Lymph # (Auto) [place] # (Auto) Eos # (Auto) Seg Neutrophils % Seg Neuts % (Manual) Lymphocytes % (Manual) Seg Neutrophils # Seg Neutrophils # Man Lymphocytes # (Manual) Monocytes % (Manual) Eosinophils % (Manual) Monocytes # (Manual) Eosinophils # (Manual) D-Dimer Heparin Anti-Xa Level ABG pH POC ABG pCO2 POC ABG pO2 ABG pO2 ABG HCO3 ABG O2 Saturation ABG Base Excess ABG Hemoglobin ABG Oxyhemoglobin VBG pH ABG Sodium ABG Potassium ABG Glucose Oxyhemoglobin Sodium Potassium Chloride Carbon Dioxide BUN Creatinine Glucose POC Glucose 187 H 149 H 189 H Lactic Acid Calcium Ferritin AST Alkaline Phosphatase Magnesium Lactate Dehydrogenase Total Creatine Kinase CK-MB (CK-2) C-Reactive Protein Total Protein Albumin Troponin T HDL Cholesterol Arterial Blood Glucose Urine WBC (Auto) Urine Creatinine Urine Total Protein Phenytoin Coronavirus (PCR) Crossmatch 06/26/20 06/26/20 06/26/20 18:30 18:30 18:30 WBC RBC 2.87 L Hgb 8.2 L Hct 25.9 L MCHC RDW 17.8 H Lymph % (Auto) [place] % (Auto) Eos % (Auto) Lymph # [place] # Lymph # (Auto) [place] # (Auto) Eos # (Auto) Seg Neutrophils % Seg Neuts % (Manual) 83.0 H Lymphocytes % (Manual) 8.0 L Seg Neutrophils # Seg Neutrophils # Man Lymphocytes # (Manual) 0.6 L Monocytes % (Manual) Eosinophils % (Manual) Monocytes # (Manual) Eosinophils # (Manual) D-Dimer Heparin Anti-Xa Level ABG pH POC ABG pCO2 POC ABG pO2 ABG pO2 ABG HCO3 ABG O2 Saturation ABG Base Excess ABG Hemoglobin ABG Oxyhemoglobin VBG pH ABG Sodium ABG Potassium ABG Glucose Oxyhemoglobin Sodium Potassium Chloride Carbon Dioxide BUN 80 H Creatinine 2.1 H Glucose 260 H POC Glucose Lactic Acid 4.30 H* Calcium 8.3 L Ferritin AST Alkaline Phosphatase Magnesium Lactate Dehydrogenase Total Creatine Kinase CK-MB (CK-2) C-Reactive Protein Total Protein Albumin Troponin T HDL Cholesterol Arterial Blood Glucose Urine WBC (Auto) Urine Creatinine Urine Total Protein Phenytoin Coronavirus (PCR) Crossmatch 06/26/20 06/27/20 06/27/20 18:50 01:00 04:29 WBC RBC Hgb Hct MCHC RDW Lymph % (Auto) [place] % (Auto) Eos % (Auto) Lymph # [place] # Lymph # (Auto) [place] # (Auto) Eos # (Auto) Seg Neutrophils % Seg Neuts % (Manual) Lymphocytes % (Manual) Seg Neutrophils # Seg Neutrophils # Man Lymphocytes # (Manual) Monocytes % (Manual) Eosinophils % (Manual) Monocytes # (Manual) Eosinophils # (Manual) D-Dimer Heparin Anti-Xa Level ABG pH 7.296 L POC ABG pCO2 POC ABG pO2 ABG pO2 116.5 H 200.5 H ABG HCO3 28.4 H ABG O2 Saturation 99.3 H ABG Base Excess 3.7 H ABG Hemoglobin 5.6 L ABG Oxyhemoglobin VBG pH ABG Sodium ABG Potassium ABG Glucose Oxyhemoglobin Sodium Potassium Chloride Carbon Dioxide BUN Creatinine Glucose POC Glucose 123 H Lactic Acid Calcium Ferritin AST Alkaline Phosphatase Magnesium Lactate Dehydrogenase Total Creatine Kinase CK-MB (CK-2) C-Reactive Protein Total Protein Albumin Troponin T HDL Cholesterol Arterial Blood Glucose Urine WBC (Auto) Urine Creatinine Urine Total Protein Phenytoin Coronavirus (PCR) Crossmatch 06/27/20 06/27/20 06/27/20 05:00 05:00 05:00 WBC RBC 2.75 L Hgb 7.9 L Hct 24.3 L MCHC RDW 17.1 H Lymph % (Auto) 8.5 L [place] % (Auto) 12.6 H Eos % (Auto) Lymph # 0.7 L [place] # 1.0 H Lymph # (Auto) [place] # (Auto) Eos # (Auto) Seg Neutrophils % 77.5 H Seg Neuts % (Manual) Lymphocytes % (Manual) Seg Neutrophils # Seg Neutrophils # Man Lymphocytes # (Manual) Monocytes % (Manual) Eosinophils % (Manual) Monocytes # (Manual) Eosinophils # (Manual) D-Dimer Heparin Anti-Xa Level ABG pH POC ABG pCO2 POC ABG pO2 ABG pO2 ABG HCO3 ABG O2 Saturation ABG Base Excess ABG Hemoglobin ABG Oxyhemoglobin VBG pH ABG Sodium ABG Potassium ABG Glucose Oxyhemoglobin Sodium Potassium Chloride Carbon Dioxide BUN 80 H Creatinine 2.0 H Glucose 129 H POC Glucose Lactic Acid 0.60 L Calcium 7.9 L Ferritin AST Alkaline Phosphatase Magnesium Lactate Dehydrogenase Total Creatine Kinase CK-MB (CK-2) C-Reactive Protein Total Protein Albumin Troponin T HDL Cholesterol Arterial Blood Glucose Urine WBC (Auto) Urine Creatinine Urine Total Protein Phenytoin Coronavirus (PCR) Crossmatch 06/27/20 06/27/20 06/27/20 05:23 13:46 17:25 WBC RBC Hgb Hct MCHC RDW Lymph % (Auto) [place] % (Auto) Eos % (Auto) Lymph # [place] # Lymph # (Auto) [place] # (Auto) Eos # (Auto) Seg Neutrophils % Seg Neuts % (Manual) Lymphocytes % (Manual) Seg Neutrophils # Seg Neutrophils # Man Lymphocytes # (Manual) Monocytes % (Manual) Eosinophils % (Manual) Monocytes # (Manual) Eosinophils # (Manual) D-Dimer Heparin Anti-Xa Level ABG pH POC ABG pCO2 POC ABG pO2 ABG pO2 ABG HCO3 ABG O2 Saturation ABG Base Excess ABG Hemoglobin ABG Oxyhemoglobin VBG pH ABG Sodium ABG Potassium ABG Glucose Oxyhemoglobin Sodium Potassium Chloride Carbon Dioxide BUN Creatinine Glucose POC Glucose 109 H 158 H 162 H Lactic Acid Calcium Ferritin AST Alkaline Phosphatase Magnesium Lactate Dehydrogenase Total Creatine Kinase CK-MB (CK-2) C-Reactive Protein Total Protein Albumin Troponin T HDL Cholesterol Arterial Blood Glucose Urine WBC (Auto) Urine Creatinine Urine Total Protein Phenytoin Coronavirus (PCR) Crossmatch 06/27/20 06/27/20 06/28/20 18:43 23:46 04:05 WBC RBC Hgb 7.7 L Hct 22.1 L MCHC RDW Lymph % (Auto) [place] % (Auto) Eos % (Auto) Lymph # [place] # Lymph # (Auto) [place] # (Auto) Eos # (Auto) Seg Neutrophils % Seg Neuts % (Manual) Lymphocytes % (Manual) Seg Neutrophils # Seg Neutrophils # Man Lymphocytes # (Manual) Monocytes % (Manual) Eosinophils % (Manual) Monocytes # (Manual) Eosinophils # (Manual) D-Dimer Heparin Anti-Xa Level ABG pH POC ABG pCO2 POC ABG pO2 ABG pO2 102.7 H ABG HCO3 28.7 H ABG O2 Saturation ABG Base Excess 3.7 H ABG Hemoglobin ABG Oxyhemoglobin VBG pH ABG Sodium ABG Potassium ABG Glucose Oxyhemoglobin Sodium Potassium Chloride Carbon Dioxide BUN Creatinine Glucose POC Glucose 142 H Lactic Acid Calcium Ferritin AST Alkaline Phosphatase Magnesium Lactate Dehydrogenase Total Creatine Kinase CK-MB (CK-2) C-Reactive Protein Total Protein Albumin Troponin T HDL Cholesterol Arterial Blood Glucose Urine WBC (Auto) Urine Creatinine Urine Total Protein Phenytoin Coronavirus (PCR) Crossmatch 06/28/20 06/28/20 06/28/20 09:47 09:47 12:02 WBC RBC 2.53 L Hgb 7.4 L Hct 22.2 L MCHC RDW 16.8 H Lymph % (Auto) [place] % (Auto) 13.5 H Eos % (Auto) Lymph # 1.1 L [place] # 1.0 H Lymph # (Auto) [place] # (Auto) Eos # (Auto) Seg Neutrophils % Seg Neuts % (Manual) Lymphocytes % (Manual) Seg Neutrophils # Seg Neutrophils # Man Lymphocytes # (Manual) Monocytes % (Manual) Eosinophils % (Manual) Monocytes # (Manual) Eosinophils # (Manual) D-Dimer Heparin Anti-Xa Level ABG pH POC ABG pCO2 POC ABG pO2 ABG pO2 ABG HCO3 ABG O2 Saturation ABG Base Excess ABG Hemoglobin ABG Oxyhemoglobin VBG pH ABG Sodium ABG Potassium ABG Glucose Oxyhemoglobin Sodium Potassium Chloride Carbon Dioxide BUN 80 H Creatinine 1.5 H Glucose 139 H POC Glucose 169 H Lactic Acid Calcium 7.9 L Ferritin AST Alkaline Phosphatase Magnesium Lactate Dehydrogenase Total Creatine Kinase CK-MB (CK-2) C-Reactive Protein Total Protein 5.0 L Albumin 2.1 L Troponin T HDL Cholesterol Arterial Blood Glucose Urine WBC (Auto) Urine Creatinine Urine Total Protein Phenytoin Coronavirus (PCR) Crossmatch 06/28/20 06/28/20 06/28/20 12:30 12:30 17:24 WBC RBC 2.38 L Hgb 7.3 L Hct 20.9 L MCHC 35 H RDW 16.7 H Lymph % (Auto) [place] % (Auto) Eos % (Auto) Lymph # [place] # Lymph # (Auto) [place] # (Auto) Eos # (Auto) Seg Neutrophils % Seg Neuts % (Manual) Lymphocytes % (Manual) Seg Neutrophils # Seg Neutrophils # Man Lymphocytes # (Manual) Monocytes % (Manual) Eosinophils % (Manual) Monocytes # (Manual) Eosinophils # (Manual) D-Dimer Heparin Anti-Xa Level ABG pH POC ABG pCO2 POC ABG pO2 ABG pO2 ABG HCO3 ABG O2 Saturation ABG Base Excess ABG Hemoglobin ABG Oxyhemoglobin VBG pH ABG Sodium ABG Potassium ABG Glucose Oxyhemoglobin Sodium Potassium Chloride Carbon Dioxide BUN 74 H Creatinine 1.5 H Glucose 143 H POC Glucose 173 H Lactic Acid Calcium 7.5 L Ferritin AST Alkaline Phosphatase Magnesium Lactate Dehydrogenase Total Creatine Kinase CK-MB (CK-2) C-Reactive Protein Total Protein Albumin Troponin T HDL Cholesterol Arterial Blood Glucose Urine WBC (Auto) Urine Creatinine Urine Total Protein Phenytoin Coronavirus (PCR) Crossmatch 06/29/20 06/29/20 06/29/20 00:02 03:54 04:38 WBC RBC 2.55 L Hgb 7.3 L Hct 22.4 L MCHC RDW 16.4 H Lymph % (Auto) 13.3 L [place] % (Auto) 12.5 H Eos % (Auto) Lymph # 1.1 L [place] # 1.0 H Lymph # (Auto) [place] # (Auto) Eos # (Auto) Seg Neutrophils % Seg Neuts % (Manual) Lymphocytes % (Manual) Seg Neutrophils # Seg Neutrophils # Man Lymphocytes # (Manual) Monocytes % (Manual) Eosinophils % (Manual) Monocytes # (Manual) Eosinophils # (Manual) D-Dimer Heparin Anti-Xa Level ABG pH POC ABG pCO2 POC ABG pO2 ABG pO2 ABG HCO3 26.9 H ABG O2 Saturation ABG Base Excess ABG Hemoglobin 6.9 L ABG Oxyhemoglobin VBG pH ABG Sodium ABG Potassium ABG Glucose Oxyhemoglobin Sodium Potassium Chloride Carbon Dioxide BUN Creatinine Glucose POC Glucose 142 H Lactic Acid Calcium Ferritin AST Alkaline Phosphatase Magnesium Lactate Dehydrogenase Total Creatine Kinase CK-MB (CK-2) C-Reactive Protein Total Protein Albumin Troponin T HDL Cholesterol Arterial Blood Glucose Urine WBC (Auto) Urine Creatinine Urine Total Protein Phenytoin Coronavirus (PCR) Crossmatch 06/29/20 06/29/20 06/29/20 04:38 05:38 12:25 WBC RBC Hgb Hct MCHC RDW Lymph % (Auto) [place] % (Auto) Eos % (Auto) Lymph # [place] # Lymph # (Auto) [place] # (Auto) Eos # (Auto) Seg Neutrophils % Seg Neuts % (Manual) Lymphocytes % (Manual) Seg Neutrophils # Seg Neutrophils # Man Lymphocytes # (Manual) Monocytes % (Manual) Eosinophils % (Manual) Monocytes # (Manual) Eosinophils # (Manual) D-Dimer Heparin Anti-Xa Level ABG pH POC ABG pCO2 POC ABG pO2 ABG pO2 ABG HCO3 ABG O2 Saturation ABG Base Excess ABG Hemoglobin ABG Oxyhemoglobin VBG pH ABG Sodium ABG Potassium ABG Glucose Oxyhemoglobin Sodium Potassium Chloride 107.8 H Carbon Dioxide BUN 72 H Creatinine 1.4 H Glucose 127 H POC Glucose 122 H 138 H Lactic Acid Calcium 7.4 L Ferritin AST Alkaline Phosphatase Magnesium Lactate Dehydrogenase Total Creatine Kinase CK-MB (CK-2) C-Reactive Protein Total Protein Albumin Troponin T HDL Cholesterol Arterial Blood Glucose Urine WBC (Auto) Urine Creatinine Urine Total Protein Phenytoin Coronavirus (PCR) Crossmatch 06/29/20 06/29/20 06/29/20 14:45 14:45 14:45 WBC RBC Hgb Hct MCHC RDW Lymph % (Auto) [place] % (Auto) Eos % (Auto) Lymph # [place] # Lymph # (Auto) [place] # (Auto) Eos # (Auto) Seg Neutrophils % Seg Neuts % (Manual) Lymphocytes % (Manual) Seg Neutrophils # Seg Neutrophils # Man Lymphocytes # (Manual) Monocytes % (Manual) Eosinophils % (Manual) Monocytes # (Manual) Eosinophils # (Manual) D-Dimer 2310.15 H Heparin Anti-Xa Level ABG pH POC ABG pCO2 POC ABG pO2 ABG pO2 ABG HCO3 ABG O2 Saturation ABG Base Excess ABG Hemoglobin ABG Oxyhemoglobin VBG pH ABG Sodium ABG Potassium ABG Glucose Oxyhemoglobin Sodium Potassium Chloride Carbon Dioxide BUN Creatinine Glucose POC Glucose Lactic Acid Calcium Ferritin 223.6 H AST Alkaline Phosphatase Magnesium Lactate Dehydrogenase 367 H Total Creatine Kinase CK-MB (CK-2) C-Reactive Protein 3.60 H Total Protein Albumin Troponin T HDL Cholesterol Arterial Blood Glucose Urine WBC (Auto) Urine Creatinine Urine Total Protein Phenytoin Coronavirus (PCR) Crossmatch 06/29/20 06/29/20 06/29/20 18:27 23:35 Unknown WBC RBC Hgb Hct MCHC RDW Lymph % (Auto) [place] % (Auto) Eos % (Auto) Lymph # [place] # Lymph # (Auto) [place] # (Auto) Eos # (Auto) Seg Neutrophils % Seg Neuts % (Manual) Lymphocytes % (Manual) Seg Neutrophils # Seg Neutrophils # Man Lymphocytes # (Manual) Monocytes % (Manual) Eosinophils % (Manual) Monocytes # (Manual) Eosinophils # (Manual) D-Dimer Heparin Anti-Xa Level ABG pH POC ABG pCO2 POC ABG pO2 ABG pO2 ABG HCO3 ABG O2 Saturation ABG Base Excess ABG Hemoglobin ABG Oxyhemoglobin VBG pH ABG Sodium ABG Potassium ABG Glucose Oxyhemoglobin Sodium Potassium Chloride Carbon Dioxide BUN Creatinine Glucose POC Glucose 112 H 140 H Lactic Acid Calcium Ferritin AST Alkaline Phosphatase Magnesium Lactate Dehydrogenase Total Creatine Kinase CK-MB (CK-2) C-Reactive Protein Total Protein Albumin Troponin T HDL Cholesterol Arterial Blood Glucose Urine WBC (Auto) Urine Creatinine Urine Total Protein Phenytoin Coronavirus (PCR) Positive A Crossmatch 06/30/20 06/30/20 06/30/20 04:10 04:10 06:09 WBC RBC 2.44 L Hgb 7.1 L Hct 21.5 L MCHC RDW 16.6 H Lymph % (Auto) 11.0 L [place] % (Auto) 10.8 H Eos % (Auto) Lymph # 0.9 L [place] # 0.9 H Lymph # (Auto) [place] # (Auto) Eos # (Auto) Seg Neutrophils % 73.7 H Seg Neuts % (Manual) Lymphocytes % (Manual) Seg Neutrophils # Seg Neutrophils # Man Lymphocytes # (Manual) Monocytes % (Manual) Eosinophils % (Manual) Monocytes # (Manual) Eosinophils # (Manual) D-Dimer Heparin Anti-Xa Level ABG pH POC ABG pCO2 POC ABG pO2 ABG pO2 ABG HCO3 ABG O2 Saturation ABG Base Excess ABG Hemoglobin ABG Oxyhemoglobin VBG pH ABG Sodium ABG Potassium ABG Glucose Oxyhemoglobin Sodium Potassium Chloride 109.1 H Carbon Dioxide BUN 74 H Creatinine 1.3 H Glucose 191 H POC Glucose 187 H Lactic Acid Calcium 7.8 L Ferritin AST Alkaline Phosphatase Magnesium Lactate Dehydrogenase Total Creatine Kinase CK-MB (CK-2) C-Reactive Protein Total Protein Albumin Troponin T HDL Cholesterol Arterial Blood Glucose Urine WBC (Auto) Urine Creatinine Urine Total Protein Phenytoin Coronavirus (PCR) Crossmatch 06/30/20 06/30/20 06/30/20 12:04 17:43 23:41 WBC RBC Hgb Hct MCHC RDW Lymph % (Auto) [place] % (Auto) Eos % (Auto) Lymph # [place] # Lymph # (Auto) [place] # (Auto) Eos # (Auto) Seg Neutrophils % Seg Neuts % (Manual) Lymphocytes % (Manual) Seg Neutrophils # Seg Neutrophils # Man Lymphocytes # (Manual) Monocytes % (Manual) Eosinophils % (Manual) Monocytes # (Manual) Eosinophils # (Manual) D-Dimer Heparin Anti-Xa Level ABG pH POC ABG pCO2 POC ABG pO2 ABG pO2 ABG HCO3 ABG O2 Saturation ABG Base Excess ABG Hemoglobin ABG Oxyhemoglobin VBG pH ABG Sodium ABG Potassium ABG Glucose Oxyhemoglobin Sodium Potassium Chloride Carbon Dioxide BUN Creatinine Glucose POC Glucose 112 H 177 H 143 H Lactic Acid Calcium Ferritin AST Alkaline Phosphatase Magnesium Lactate Dehydrogenase Total Creatine Kinase CK-MB (CK-2) C-Reactive Protein Total Protein Albumin Troponin T HDL Cholesterol Arterial Blood Glucose Urine WBC (Auto) Urine Creatinine Urine Total Protein Phenytoin Coronavirus (PCR) Crossmatch 07/01/20 07/01/20 07/01/20 05:02 05:52 06:01 WBC 12.6 H RBC 2.95 L Hgb 8.2 L Hct 26.0 L MCHC RDW 16.9 H Lymph % (Auto) [place] % (Auto) Eos % (Auto) Lymph # [place] # Lymph # (Auto) [place] # (Auto) Eos # (Auto) Seg Neutrophils % Seg Neuts % (Manual) Lymphocytes % (Manual) Seg Neutrophils # Seg Neutrophils # Man 8.6 H Lymphocytes # (Manual) Monocytes % (Manual) Eosinophils % (Manual) 5.0 H Monocytes # (Manual) Eosinophils # (Manual) 0.6 H D-Dimer Heparin Anti-Xa Level ABG pH POC ABG pCO2 POC ABG pO2 ABG pO2 ABG HCO3 ABG O2 Saturation ABG Base Excess ABG Hemoglobin 8.2 L ABG Oxyhemoglobin VBG pH ABG Sodium ABG Potassium ABG Glucose Oxyhemoglobin Sodium Potassium Chloride Carbon Dioxide BUN Creatinine Glucose POC Glucose 129 H Lactic Acid Calcium Ferritin AST Alkaline Phosphatase Magnesium Lactate Dehydrogenase Total Creatine Kinase CK-MB (CK-2) C-Reactive Protein Total Protein Albumin Troponin T HDL Cholesterol Arterial Blood Glucose Urine WBC (Auto) Urine Creatinine Urine Total Protein Phenytoin Coronavirus (PCR) Crossmatch 07/01/20 07/01/20 07/01/20 06:01 06:01 06:08 WBC RBC Hgb Hct MCHC RDW Lymph % (Auto) [place] % (Auto) Eos % (Auto) Lymph # [place] # Lymph # (Auto) [place] # (Auto) Eos # (Auto) Seg Neutrophils % Seg Neuts % (Manual) Lymphocytes % (Manual) Seg Neutrophils # Seg Neutrophils # Man Lymphocytes # (Manual) Monocytes % (Manual) Eosinophils % (Manual) Monocytes # (Manual) Eosinophils # (Manual) D-Dimer Heparin Anti-Xa Level ABG pH POC ABG pCO2 POC ABG pO2 ABG pO2 ABG HCO3 ABG O2 Saturation ABG Base Excess ABG Hemoglobin ABG Oxyhemoglobin VBG pH ABG Sodium ABG Potassium ABG Glucose Oxyhemoglobin Sodium 147 H Potassium Chloride 108.0 H Carbon Dioxide BUN 71 H Creatinine 1.3 H Glucose 193 H POC Glucose 192 H Lactic Acid Calcium 8.1 L Ferritin AST Alkaline Phosphatase Magnesium Lactate Dehydrogenase Total Creatine Kinase 300 H CK-MB (CK-2) C-Reactive Protein Total Protein Albumin Troponin T 0.067 H HDL Cholesterol 61 H Arterial Blood Glucose Urine WBC (Auto) Urine Creatinine Urine Total Protein Phenytoin Coronavirus (PCR) Crossmatch 07/01/20 07/01/20 07/02/20 12:23 17:40 00:18 WBC RBC Hgb Hct MCHC RDW Lymph % (Auto) [place] % (Auto) Eos % (Auto) Lymph # [place] # Lymph # (Auto) [place] # (Auto) Eos # (Auto) Seg Neutrophils % Seg Neuts % (Manual) Lymphocytes % (Manual) Seg Neutrophils # Seg Neutrophils # Man Lymphocytes # (Manual) Monocytes % (Manual) Eosinophils % (Manual) Monocytes # (Manual) Eosinophils # (Manual) D-Dimer Heparin Anti-Xa Level ABG pH POC ABG pCO2 POC ABG pO2 ABG pO2 ABG HCO3 ABG O2 Saturation ABG Base Excess ABG Hemoglobin ABG Oxyhemoglobin VBG pH ABG Sodium ABG Potassium ABG Glucose Oxyhemoglobin Sodium Potassium Chloride Carbon Dioxide BUN Creatinine Glucose POC Glucose 111 H 135 H 145 H Lactic Acid Calcium Ferritin AST Alkaline Phosphatase Magnesium Lactate Dehydrogenase Total Creatine Kinase CK-MB (CK-2) C-Reactive Protein Total Protein Albumin Troponin T HDL Cholesterol Arterial Blood Glucose Urine WBC (Auto) Urine Creatinine Urine Total Protein Phenytoin Coronavirus (PCR) Crossmatch 07/02/20 07/02/20 07/02/20 04:11 04:23 05:54 WBC RBC Hgb Hct MCHC RDW Lymph % (Auto) [place] % (Auto) Eos % (Auto) Lymph # [place] # Lymph # (Auto) [place] # (Auto) Eos # (Auto) Seg Neutrophils % Seg Neuts % (Manual) Lymphocytes % (Manual) Seg Neutrophils # Seg Neutrophils # Man Lymphocytes # (Manual) Monocytes % (Manual) Eosinophils % (Manual) Monocytes # (Manual) Eosinophils # (Manual) D-Dimer Heparin Anti-Xa Level ABG pH POC ABG pCO2 POC ABG pO2 ABG pO2 ABG HCO3 ABG O2 Saturation ABG Base Excess ABG Hemoglobin 5.4 L ABG Oxyhemoglobin VBG pH ABG Sodium ABG Potassium ABG Glucose Oxyhemoglobin Sodium Potassium Chloride 108.6 H Carbon Dioxide BUN 72 H Creatinine Glucose 112 H POC Glucose 137 H Lactic Acid Calcium 7.8 L Ferritin AST Alkaline Phosphatase Magnesium Lactate Dehydrogenase Total Creatine Kinase CK-MB (CK-2) C-Reactive Protein Total Protein Albumin Troponin T HDL Cholesterol Arterial Blood Glucose Urine WBC (Auto) Urine Creatinine Urine Total Protein Phenytoin Coronavirus (PCR) Crossmatch 07/02/20 07/02/20 07/02/20 11:38 18:04 23:59 WBC RBC Hgb Hct MCHC RDW Lymph % (Auto) [place] % (Auto) Eos % (Auto) Lymph # [place] # Lymph # (Auto) [place] # (Auto) Eos # (Auto) Seg Neutrophils % Seg Neuts % (Manual) Lymphocytes % (Manual) Seg Neutrophils # Seg Neutrophils # Man Lymphocytes # (Manual) Monocytes % (Manual) Eosinophils % (Manual) Monocytes # (Manual) Eosinophils # (Manual) D-Dimer Heparin Anti-Xa Level ABG pH POC ABG pCO2 POC ABG pO2 ABG pO2 ABG HCO3 ABG O2 Saturation ABG Base Excess ABG Hemoglobin ABG Oxyhemoglobin VBG pH ABG Sodium ABG Potassium ABG Glucose Oxyhemoglobin Sodium Potassium Chloride Carbon Dioxide BUN Creatinine Glucose POC Glucose 128 H 135 H 156 H Lactic Acid Calcium Ferritin AST Alkaline Phosphatase Magnesium Lactate Dehydrogenase Total Creatine Kinase CK-MB (CK-2) C-Reactive Protein Total Protein Albumin Troponin T HDL Cholesterol Arterial Blood Glucose Urine WBC (Auto) Urine Creatinine Urine Total Protein Phenytoin Coronavirus (PCR) Crossmatch 07/03/20 07/03/20 07/03/20 03:49 06:00 11:31 WBC RBC Hgb Hct MCHC RDW Lymph % (Auto) [place] % (Auto) Eos % (Auto) Lymph # [place] # Lymph # (Auto) [place] # (Auto) Eos # (Auto) Seg Neutrophils % Seg Neuts % (Manual) Lymphocytes % (Manual) Seg Neutrophils # Seg Neutrophils # Man Lymphocytes # (Manual) Monocytes % (Manual) Eosinophils % (Manual) Monocytes # (Manual) Eosinophils # (Manual) D-Dimer Heparin Anti-Xa Level ABG pH POC ABG pCO2 POC ABG pO2 ABG pO2 121.0 H ABG HCO3 ABG O2 Saturation ABG Base Excess ABG Hemoglobin 8.5 L ABG Oxyhemoglobin VBG pH ABG Sodium ABG Potassium ABG Glucose Oxyhemoglobin Sodium Potassium Chloride Carbon Dioxide BUN Creatinine Glucose POC Glucose 135 H 141 H Lactic Acid Calcium Ferritin AST Alkaline Phosphatase Magnesium Lactate Dehydrogenase Total Creatine Kinase CK-MB (CK-2) C-Reactive Protein Total Protein Albumin Troponin T HDL Cholesterol Arterial Blood Glucose Urine WBC (Auto) Urine Creatinine Urine Total Protein Phenytoin Coronavirus (PCR) Crossmatch 07/03/20 07/03/20 07/03/20 16:00 16:07 17:40 WBC RBC Hgb Hct MCHC RDW Lymph % (Auto) [place] % (Auto) Eos % (Auto) Lymph # [place] # Lymph # (Auto) [place] # (Auto) Eos # (Auto) Seg Neutrophils % Seg Neuts % (Manual) Lymphocytes % (Manual) Seg Neutrophils # Seg Neutrophils # Man Lymphocytes # (Manual) Monocytes % (Manual) Eosinophils % (Manual) Monocytes # (Manual) Eosinophils # (Manual) D-Dimer Heparin Anti-Xa Level ABG pH 7.271 L POC ABG pCO2 POC ABG pO2 ABG pO2 126.9 H ABG HCO3 ABG O2 Saturation ABG Base Excess ABG Hemoglobin 8.2 L 8.1 L ABG Oxyhemoglobin VBG pH ABG Sodium 130.3 L ABG Potassium 4.9 H ABG Glucose 163 H Oxyhemoglobin Sodium Potassium Chloride Carbon Dioxide BUN Creatinine Glucose POC Glucose 120 H Lactic Acid Calcium Ferritin AST Alkaline Phosphatase Magnesium Lactate Dehydrogenase Total Creatine Kinase CK-MB (CK-2) C-Reactive Protein Total Protein Albumin Troponin T HDL Cholesterol Arterial Blood Glucose 163 H Urine WBC (Auto) Urine Creatinine Urine Total Protein Phenytoin Coronavirus (PCR) Crossmatch 07/04/20 07/04/20 07/04/20 05:49 11:54 18:00 WBC RBC Hgb Hct MCHC RDW Lymph % (Auto) [place] % (Auto) Eos % (Auto) Lymph # [place] # Lymph # (Auto) [place] # (Auto) Eos # (Auto) Seg Neutrophils % Seg Neuts % (Manual) Lymphocytes % (Manual) Seg Neutrophils # Seg Neutrophils # Man Lymphocytes # (Manual) Monocytes % (Manual) Eosinophils % (Manual) Monocytes # (Manual) Eosinophils # (Manual) D-Dimer Heparin Anti-Xa Level ABG pH POC ABG pCO2 POC ABG pO2 ABG pO2 ABG HCO3 ABG O2 Saturation ABG Base Excess ABG Hemoglobin ABG Oxyhemoglobin VBG pH ABG Sodium ABG Potassium ABG Glucose Oxyhemoglobin Sodium Potassium Chloride Carbon Dioxide BUN Creatinine Glucose POC Glucose 128 H 168 H 133 H Lactic Acid Calcium Ferritin AST Alkaline Phosphatase Magnesium Lactate Dehydrogenase Total Creatine Kinase CK-MB (CK-2) C-Reactive Protein Total Protein Albumin Troponin T HDL Cholesterol Arterial Blood Glucose Urine WBC (Auto) Urine Creatinine Urine Total Protein Phenytoin Coronavirus (PCR) Crossmatch 07/05/20 07/05/20 07/05/20 00:07 01:12 02:30 WBC RBC 2.35 L Hgb 6.9 L Hct 21.1 L MCHC RDW 16.8 H Lymph % (Auto) [place] % (Auto) Eos % (Auto) Lymph # [place] # Lymph # (Auto) [place] # (Auto) Eos # (Auto) Seg Neutrophils % Seg Neuts % (Manual) 74.0 H Lymphocytes % (Manual) 12.0 L Seg Neutrophils # Seg Neutrophils # Man 8.0 H Lymphocytes # (Manual) Monocytes % (Manual) 9.0 H Eosinophils % (Manual) Monocytes # (Manual) 1.0 H Eosinophils # (Manual) D-Dimer Heparin Anti-Xa Level ABG pH POC ABG pCO2 POC ABG pO2 ABG pO2 ABG HCO3 ABG O2 Saturation ABG Base Excess ABG Hemoglobin ABG Oxyhemoglobin VBG pH ABG Sodium ABG Potassium ABG Glucose Oxyhemoglobin Sodium Potassium Chloride Carbon Dioxide BUN Creatinine Glucose POC Glucose 121 H Lactic Acid Calcium Ferritin AST Alkaline Phosphatase Magnesium Lactate Dehydrogenase Total Creatine Kinase CK-MB (CK-2) C-Reactive Protein Total Protein Albumin Troponin T HDL Cholesterol Arterial Blood Glucose Urine WBC (Auto) Urine Creatinine Urine Total Protein Phenytoin Coronavirus (PCR) Crossmatch See Detail 07/05/20 07/05/20 07/05/20 12:09 13:05 18:04 WBC RBC Hgb Hct MCHC RDW Lymph % (Auto) [place] % (Auto) Eos % (Auto) Lymph # [place] # Lymph # (Auto) [place] # (Auto) Eos # (Auto) Seg Neutrophils % Seg Neuts % (Manual) Lymphocytes % (Manual) Seg Neutrophils # Seg Neutrophils # Man Lymphocytes # (Manual) Monocytes % (Manual) Eosinophils % (Manual) Monocytes # (Manual) Eosinophils # (Manual) D-Dimer Heparin Anti-Xa Level ABG pH 7.32 L POC ABG pCO2 POC ABG pO2 ABG pO2 78.3 L ABG HCO3 ABG O2 Saturation ABG Base Excess -2.6 L ABG Hemoglobin 7.3 L ABG Oxyhemoglobin VBG pH ABG Sodium ABG Potassium ABG Glucose Oxyhemoglobin Sodium Potassium Chloride Carbon Dioxide BUN Creatinine Glucose POC Glucose 132 H 160 H Lactic Acid Calcium Ferritin AST Alkaline Phosphatase Magnesium Lactate Dehydrogenase Total Creatine Kinase CK-MB (CK-2) C-Reactive Protein Total Protein Albumin Troponin T HDL Cholesterol Arterial Blood Glucose Urine WBC (Auto) Urine Creatinine Urine Total Protein Phenytoin Coronavirus (PCR) Crossmatch 07/05/20 07/05/20 07/05/20 23:13 23:13 23:43 WBC RBC 2.57 L Hgb 7.7 L Hct 23.0 L MCHC RDW 16.9 H Lymph % (Auto) [place] % (Auto) Eos % (Auto) Lymph # [place] # Lymph # (Auto) [place] # (Auto) Eos # (Auto) Seg Neutrophils % Seg Neuts % (Manual) Lymphocytes % (Manual) Seg Neutrophils # Seg Neutrophils # Man Lymphocytes # (Manual) Monocytes % (Manual) Eosinophils % (Manual) Monocytes # (Manual) Eosinophils # (Manual) D-Dimer Heparin Anti-Xa Level ABG pH POC ABG pCO2 POC ABG pO2 ABG pO2 ABG HCO3 ABG O2 Saturation ABG Base Excess ABG Hemoglobin ABG Oxyhemoglobin VBG pH ABG Sodium ABG Potassium ABG Glucose Oxyhemoglobin Sodium Potassium Chloride Carbon Dioxide 20 L BUN 80 H Creatinine 2.4 H D Glucose 124 H POC Glucose 121 H Lactic Acid Calcium 7.6 L Ferritin AST Alkaline Phosphatase Magnesium Lactate Dehydrogenase Total Creatine Kinase CK-MB (CK-2) C-Reactive Protein Total Protein Albumin Troponin T HDL Cholesterol Arterial Blood Glucose Urine WBC (Auto) Urine Creatinine Urine Total Protein Phenytoin Coronavirus (PCR) Crossmatch 07/06/20 07/06/20 07/06/20 13:20 14:48 17:28 WBC RBC Hgb Hct MCHC RDW Lymph % (Auto) [place] % (Auto) Eos % (Auto) Lymph # [place] # Lymph # (Auto) [place] # (Auto) Eos # (Auto) Seg Neutrophils % Seg Neuts % (Manual) Lymphocytes % (Manual) Seg Neutrophils # Seg Neutrophils # Man Lymphocytes # (Manual) Monocytes % (Manual) Eosinophils % (Manual) Monocytes # (Manual) Eosinophils # (Manual) D-Dimer Heparin Anti-Xa Level ABG pH POC ABG pCO2 POC ABG pO2 ABG pO2 ABG HCO3 ABG O2 Saturation ABG Base Excess ABG Hemoglobin ABG Oxyhemoglobin VBG pH ABG Sodium ABG Potassium ABG Glucose Oxyhemoglobin Sodium 136 L Potassium 5.5 H Chloride Carbon Dioxide 19 L BUN 82 H Creatinine 2.5 H Glucose 113 H POC Glucose 133 H Lactic Acid Calcium 7.7 L Ferritin AST Alkaline Phosphatase Magnesium Lactate Dehydrogenase Total Creatine Kinase CK-MB (CK-2) C-Reactive Protein Total Protein Albumin Troponin T HDL Cholesterol Arterial Blood Glucose Urine WBC (Auto) Urine Creatinine 33.3 H Urine Total Protein Phenytoin Coronavirus (PCR) Crossmatch 07/07/20 07/07/20 07/07/20 00:12 04:15 04:15 WBC RBC 2.28 L Hgb 6.8 L Hct 20.7 L MCHC RDW 16.8 H Lymph % (Auto) [place] % (Auto) Eos % (Auto) Lymph # [place] # Lymph # (Auto) [place] # (Auto) Eos # (Auto) Seg Neutrophils % Seg Neuts % (Manual) Lymphocytes % (Manual) 13.0 L Seg Neutrophils # Seg Neutrophils # Man Lymphocytes # (Manual) 1.0 L Monocytes % (Manual) 11.0 H Eosinophils % (Manual) Monocytes # (Manual) 0.9 H Eosinophils # (Manual) D-Dimer Heparin Anti-Xa Level ABG pH POC ABG pCO2 POC ABG pO2 ABG pO2 ABG HCO3 ABG O2 Saturation ABG Base Excess ABG Hemoglobin ABG Oxyhemoglobin VBG pH ABG Sodium ABG Potassium ABG Glucose Oxyhemoglobin Sodium Potassium Chloride Carbon Dioxide BUN Creatinine Glucose POC Glucose 154 H Lactic Acid Calcium Ferritin AST Alkaline Phosphatase Magnesium 2.50 H Lactate Dehydrogenase Total Creatine Kinase CK-MB (CK-2) C-Reactive Protein Total Protein Albumin Troponin T HDL Cholesterol Arterial Blood Glucose Urine WBC (Auto) Urine Creatinine Urine Total Protein Phenytoin Coronavirus (PCR) Crossmatch 07/07/20 07/07/20 07/07/20 05:31 12:31 13:22 WBC RBC Hgb Hct MCHC RDW Lymph % (Auto) [place] % (Auto) Eos % (Auto) Lymph # [place] # Lymph # (Auto) [place] # (Auto) Eos # (Auto) Seg Neutrophils % Seg Neuts % (Manual) Lymphocytes % (Manual) Seg Neutrophils # Seg Neutrophils # Man Lymphocytes # (Manual) Monocytes % (Manual) Eosinophils % (Manual) Monocytes # (Manual) Eosinophils # (Manual) D-Dimer Heparin Anti-Xa Level ABG pH POC ABG pCO2 POC ABG pO2 ABG pO2 ABG HCO3 ABG O2 Saturation ABG Base Excess ABG Hemoglobin ABG Oxyhemoglobin VBG pH ABG Sodium ABG Potassium ABG Glucose Oxyhemoglobin Sodium Potassium 5.6 H Chloride Carbon Dioxide BUN 86 H Creatinine 2.9 H Glucose 127 H POC Glucose 135 H 131 H Lactic Acid Calcium 8.1 L Ferritin AST Alkaline Phosphatase Magnesium Lactate Dehydrogenase Total Creatine Kinase CK-MB (CK-2) C-Reactive Protein Total Protein Albumin Troponin T HDL Cholesterol Arterial Blood Glucose Urine WBC (Auto) Urine Creatinine Urine Total Protein Phenytoin Coronavirus (PCR) Crossmatch 07/07/20 07/07/20 07/08/20 17:55 23:33 04:14 WBC RBC 3.28 L Hgb 9.7 L Hct 28.9 L D MCHC RDW 16.4 H Lymph % (Auto) 10.3 L [place] % (Auto) 10.0 H Eos % (Auto) Lymph # [place] # Lymph # (Auto) 1.1 L [place] # (Auto) 1.1 H Eos # (Auto) Seg Neutrophils % 77.2 H Seg Neuts % (Manual) Lymphocytes % (Manual) Seg Neutrophils # 8.2 H Seg Neutrophils # Man Lymphocytes # (Manual) Monocytes % (Manual) Eosinophils % (Manual) Monocytes # (Manual) Eosinophils # (Manual) D-Dimer Heparin Anti-Xa Level ABG pH POC ABG pCO2 POC ABG pO2 ABG pO2 ABG HCO3 ABG O2 Saturation ABG Base Excess ABG Hemoglobin ABG Oxyhemoglobin VBG pH ABG Sodium ABG Potassium ABG Glucose Oxyhemoglobin Sodium Potassium Chloride Carbon Dioxide BUN Creatinine Glucose POC Glucose 136 H 159 H Lactic Acid Calcium Ferritin AST Alkaline Phosphatase Magnesium Lactate Dehydrogenase Total Creatine Kinase CK-MB (CK-2) C-Reactive Protein Total Protein Albumin Troponin T HDL Cholesterol Arterial Blood Glucose Urine WBC (Auto) Urine Creatinine Urine Total Protein Phenytoin Coronavirus (PCR) Crossmatch 07/08/20 07/08/20 07/08/20 04:14 12:10 18:10 WBC RBC Hgb Hct MCHC RDW Lymph % (Auto) [place] % (Auto) Eos % (Auto) Lymph # [place] # Lymph # (Auto) [place] # (Auto) Eos # (Auto) Seg Neutrophils % Seg Neuts % (Manual) Lymphocytes % (Manual) Seg Neutrophils # Seg Neutrophils # Man Lymphocytes # (Manual) Monocytes % (Manual) Eosinophils % (Manual) Monocytes # (Manual) Eosinophils # (Manual) D-Dimer Heparin Anti-Xa Level ABG pH POC ABG pCO2 POC ABG pO2 ABG pO2 ABG HCO3 ABG O2 Saturation ABG Base Excess ABG Hemoglobin ABG Oxyhemoglobin VBG pH ABG Sodium ABG Potassium ABG Glucose Oxyhemoglobin Sodium 136 L Potassium Chloride Carbon Dioxide BUN 84 H Creatinine 2.8 H Glucose 109 H POC Glucose 108 H 125 H Lactic Acid Calcium 8.1 L Ferritin AST Alkaline Phosphatase Magnesium 2.50 H Lactate Dehydrogenase Total Creatine Kinase CK-MB (CK-2) C-Reactive Protein Total Protein Albumin Troponin T HDL Cholesterol Arterial Blood Glucose Urine WBC (Auto) Urine Creatinine Urine Total Protein Phenytoin Coronavirus (PCR) Crossmatch 07/08/20 07/09/20 07/09/20 23:50 05:39 11:57 WBC RBC Hgb Hct MCHC RDW Lymph % (Auto) [place] % (Auto) Eos % (Auto) Lymph # [place] # Lymph # (Auto) [place] # (Auto) Eos # (Auto) Seg Neutrophils % Seg Neuts % (Manual) Lymphocytes % (Manual) Seg Neutrophils # Seg Neutrophils # Man Lymphocytes # (Manual) Monocytes % (Manual) Eosinophils % (Manual) Monocytes # (Manual) Eosinophils # (Manual) D-Dimer Heparin Anti-Xa Level ABG pH POC ABG pCO2 POC ABG pO2 ABG pO2 ABG HCO3 ABG O2 Saturation ABG Base Excess ABG Hemoglobin ABG Oxyhemoglobin VBG pH ABG Sodium ABG Potassium ABG Glucose Oxyhemoglobin Sodium Potassium Chloride Carbon Dioxide BUN Creatinine Glucose POC Glucose 141 H 121 H 123 H Lactic Acid Calcium Ferritin AST Alkaline Phosphatase Magnesium Lactate Dehydrogenase Total Creatine Kinase CK-MB (CK-2) C-Reactive Protein Total Protein Albumin Troponin T HDL Cholesterol Arterial Blood Glucose Urine WBC (Auto) Urine Creatinine Urine Total Protein Phenytoin Coronavirus (PCR) Crossmatch 07/09/20 07/10/20 07/10/20 17:56 00:29 05:50 WBC RBC Hgb Hct MCHC RDW Lymph % (Auto) [place] % (Auto) Eos % (Auto) Lymph # [place] # Lymph # (Auto) [place] # (Auto) Eos # (Auto) Seg Neutrophils % Seg Neuts % (Manual) Lymphocytes % (Manual) Seg Neutrophils # Seg Neutrophils # Man Lymphocytes # (Manual) Monocytes % (Manual) Eosinophils % (Manual) Monocytes # (Manual) Eosinophils # (Manual) D-Dimer Heparin Anti-Xa Level ABG pH POC ABG pCO2 POC ABG pO2 ABG pO2 ABG HCO3 ABG O2 Saturation ABG Base Excess ABG Hemoglobin ABG Oxyhemoglobin VBG pH ABG Sodium ABG Potassium ABG Glucose Oxyhemoglobin Sodium Potassium Chloride Carbon Dioxide BUN Creatinine Glucose POC Glucose 119 H 122 H 124 H Lactic Acid Calcium Ferritin AST Alkaline Phosphatase Magnesium Lactate Dehydrogenase Total Creatine Kinase CK-MB (CK-2) C-Reactive Protein Total Protein Albumin Troponin T HDL Cholesterol Arterial Blood Glucose Urine WBC (Auto) Urine Creatinine Urine Total Protein Phenytoin Coronavirus (PCR) Crossmatch 07/10/20 07/10/20 07/10/20 10:41 10:41 12:25 WBC RBC 3.11 L Hgb 9.2 L Hct 27.6 L MCHC RDW 16.6 H Lymph % (Auto) [place] % (Auto) Eos % (Auto) Lymph # [place] # Lymph # (Auto) [place] # (Auto) Eos # (Auto) Seg Neutrophils % Seg Neuts % (Manual) 78.0 H Lymphocytes % (Manual) 11.0 L Seg Neutrophils # Seg Neutrophils # Man Lymphocytes # (Manual) 1.0 L Monocytes % (Manual) Eosinophils % (Manual) Monocytes # (Manual) Eosinophils # (Manual) D-Dimer Heparin Anti-Xa Level ABG pH POC ABG pCO2 POC ABG pO2 ABG pO2 ABG HCO3 ABG O2 Saturation ABG Base Excess ABG Hemoglobin ABG Oxyhemoglobin VBG pH ABG Sodium ABG Potassium ABG Glucose Oxyhemoglobin Sodium Potassium Chloride Carbon Dioxide BUN 85 H Creatinine 2.5 H Glucose 133 H POC Glucose 131 H Lactic Acid Calcium Ferritin AST Alkaline Phosphatase 131 H Magnesium Lactate Dehydrogenase Total Creatine Kinase CK-MB (CK-2) C-Reactive Protein Total Protein 5.2 L Albumin 1.6 L Troponin T HDL Cholesterol Arterial Blood Glucose Urine WBC (Auto) Urine Creatinine Urine Total Protein Phenytoin Coronavirus (PCR) Crossmatch 07/10/20 07/11/20 07/11/20 18:10 00:28 05:57 WBC RBC Hgb Hct MCHC RDW Lymph % (Auto) [place] % (Auto) Eos % (Auto) Lymph # [place] # Lymph # (Auto) [place] # (Auto) Eos # (Auto) Seg Neutrophils % Seg Neuts % (Manual) Lymphocytes % (Manual) Seg Neutrophils # Seg Neutrophils # Man Lymphocytes # (Manual) Monocytes % (Manual) Eosinophils % (Manual) Monocytes # (Manual) Eosinophils # (Manual) D-Dimer Heparin Anti-Xa Level ABG pH POC ABG pCO2 POC ABG pO2 ABG pO2 ABG HCO3 ABG O2 Saturation ABG Base Excess ABG Hemoglobin ABG Oxyhemoglobin VBG pH ABG Sodium ABG Potassium ABG Glucose Oxyhemoglobin Sodium Potassium Chloride Carbon Dioxide BUN Creatinine Glucose POC Glucose 134 H 140 H 148 H Lactic Acid Calcium Ferritin AST Alkaline Phosphatase Magnesium Lactate Dehydrogenase Total Creatine Kinase CK-MB (CK-2) C-Reactive Protein Total Protein Albumin Troponin T HDL Cholesterol Arterial Blood Glucose Urine WBC (Auto) Urine Creatinine Urine Total Protein Phenytoin Coronavirus (PCR) Crossmatch 07/11/20 07/11/20 07/11/20 12:14 17:28 23:49 WBC RBC Hgb Hct MCHC RDW Lymph % (Auto) [place] % (Auto) Eos % (Auto) Lymph # [place] # Lymph # (Auto) [place] # (Auto) Eos # (Auto) Seg Neutrophils % Seg Neuts % (Manual) Lymphocytes % (Manual) Seg Neutrophils # Seg Neutrophils # Man Lymphocytes # (Manual) Monocytes % (Manual) Eosinophils % (Manual) Monocytes # (Manual) Eosinophils # (Manual) D-Dimer Heparin Anti-Xa Level ABG pH POC ABG pCO2 POC ABG pO2 ABG pO2 ABG HCO3 ABG O2 Saturation ABG Base Excess ABG Hemoglobin ABG Oxyhemoglobin VBG pH ABG Sodium ABG Potassium ABG Glucose Oxyhemoglobin Sodium Potassium Chloride Carbon Dioxide BUN Creatinine Glucose POC Glucose 147 H 175 H 114 H Lactic Acid Calcium Ferritin AST Alkaline Phosphatase Magnesium Lactate Dehydrogenase Total Creatine Kinase CK-MB (CK-2) C-Reactive Protein Total Protein Albumin Troponin T HDL Cholesterol Arterial Blood Glucose Urine WBC (Auto) Urine Creatinine Urine Total Protein Phenytoin Coronavirus (PCR) Crossmatch 07/12/20 07/12/20 07/12/20 05:14 05:14 05:44 WBC RBC 2.78 L Hgb 8.5 L Hct 25.3 L MCHC RDW 16.7 H Lymph % (Auto) [place] % (Auto) Eos % (Auto) Lymph # [place] # Lymph # (Auto) [place] # (Auto) Eos # (Auto) Seg Neutrophils % Seg Neuts % (Manual) 81.0 H Lymphocytes % (Manual) 6.0 L Seg Neutrophils # Seg Neutrophils # Man Lymphocytes # (Manual) 0.6 L Monocytes % (Manual) 8.0 H Eosinophils % (Manual) Monocytes # (Manual) Eosinophils # (Manual) D-Dimer Heparin Anti-Xa Level ABG pH POC ABG pCO2 POC ABG pO2 ABG pO2 ABG HCO3 ABG O2 Saturation ABG Base Excess ABG Hemoglobin ABG Oxyhemoglobin VBG pH ABG Sodium ABG Potassium ABG Glucose Oxyhemoglobin Sodium Potassium Chloride Carbon Dioxide BUN 79 H Creatinine 2.2 H Glucose 131 H POC Glucose 116 H Lactic Acid Calcium Ferritin AST Alkaline Phosphatase Magnesium Lactate Dehydrogenase Total Creatine Kinase CK-MB (CK-2) C-Reactive Protein Total Protein Albumin Troponin T HDL Cholesterol Arterial Blood Glucose Urine WBC (Auto) Urine Creatinine Urine Total Protein Phenytoin Coronavirus (PCR) Crossmatch 07/12/20 07/12/20 07/13/20 11:32 17:53 00:18 WBC RBC Hgb Hct MCHC RDW Lymph % (Auto) [place] % (Auto) Eos % (Auto) Lymph # [place] # Lymph # (Auto) [place] # (Auto) Eos # (Auto) Seg Neutrophils % Seg Neuts % (Manual) Lymphocytes % (Manual) Seg Neutrophils # Seg Neutrophils # Man Lymphocytes # (Manual) Monocytes % (Manual) Eosinophils % (Manual) Monocytes # (Manual) Eosinophils # (Manual) D-Dimer Heparin Anti-Xa Level ABG pH POC ABG pCO2 POC ABG pO2 ABG pO2 ABG HCO3 ABG O2 Saturation ABG Base Excess ABG Hemoglobin ABG Oxyhemoglobin VBG pH ABG Sodium ABG Potassium ABG Glucose Oxyhemoglobin Sodium Potassium Chloride Carbon Dioxide BUN Creatinine Glucose POC Glucose 132 H 155 H 162 H Lactic Acid Calcium Ferritin AST Alkaline Phosphatase Magnesium Lactate Dehydrogenase Total Creatine Kinase CK-MB (CK-2) C-Reactive Protein Total Protein Albumin Troponin T HDL Cholesterol Arterial Blood Glucose Urine WBC (Auto) Urine Creatinine Urine Total Protein Phenytoin Coronavirus (PCR) Crossmatch 07/13/20 07/13/20 07/13/20 04:53 04:53 06:14 WBC RBC 2.86 L Hgb 8.4 L Hct 25.7 L MCHC RDW 16.8 H Lymph % (Auto) [place] % (Auto) Eos % (Auto) Lymph # [place] # Lymph # (Auto) [place] # (Auto) Eos # (Auto) Seg Neutrophils % Seg Neuts % (Manual) 84.0 H Lymphocytes % (Manual) 7.0 L Seg Neutrophils # Seg Neutrophils # Man Lymphocytes # (Manual) 0.6 L Monocytes % (Manual) Eosinophils % (Manual) Monocytes # (Manual) Eosinophils # (Manual) D-Dimer Heparin Anti-Xa Level ABG pH POC ABG pCO2 POC ABG pO2 ABG pO2 ABG HCO3 ABG O2 Saturation ABG Base Excess ABG Hemoglobin ABG Oxyhemoglobin VBG pH ABG Sodium ABG Potassium ABG Glucose Oxyhemoglobin Sodium 136 L Potassium Chloride Carbon Dioxide BUN 78 H Creatinine 2.0 H Glucose 130 H POC Glucose 141 H Lactic Acid Calcium Ferritin AST Alkaline Phosphatase Magnesium Lactate Dehydrogenase Total Creatine Kinase CK-MB (CK-2) C-Reactive Protein Total Protein Albumin Troponin T HDL Cholesterol Arterial Blood Glucose Urine WBC (Auto) Urine Creatinine Urine Total Protein Phenytoin Coronavirus (PCR) Crossmatch 07/13/20 07/13/20 07/14/20 12:50 18:27 00:22 WBC RBC Hgb Hct MCHC RDW Lymph % (Auto) [place] % (Auto) Eos % (Auto) Lymph # [place] # Lymph # (Auto) [place] # (Auto) Eos # (Auto) Seg Neutrophils % Seg Neuts % (Manual) Lymphocytes % (Manual) Seg Neutrophils # Seg Neutrophils # Man Lymphocytes # (Manual) Monocytes % (Manual) Eosinophils % (Manual) Monocytes # (Manual) Eosinophils # (Manual) D-Dimer Heparin Anti-Xa Level ABG pH POC ABG pCO2 POC ABG pO2 ABG pO2 ABG HCO3 ABG O2 Saturation ABG Base Excess ABG Hemoglobin ABG Oxyhemoglobin VBG pH ABG Sodium ABG Potassium ABG Glucose Oxyhemoglobin Sodium Potassium Chloride Carbon Dioxide BUN Creatinine Glucose POC Glucose 146 H 149 H 157 H Lactic Acid Calcium Ferritin AST Alkaline Phosphatase Magnesium Lactate Dehydrogenase Total Creatine Kinase CK-MB (CK-2) C-Reactive Protein Total Protein Albumin Troponin T HDL Cholesterol Arterial Blood Glucose Urine WBC (Auto) Urine Creatinine Urine Total Protein Phenytoin Coronavirus (PCR) Crossmatch 07/14/20 07/14/20 07/14/20 05:43 08:04 12:12 WBC RBC Hgb Hct MCHC RDW Lymph % (Auto) [place] % (Auto) Eos % (Auto) Lymph # [place] # Lymph # (Auto) [place] # (Auto) Eos # (Auto) Seg Neutrophils % Seg Neuts % (Manual) Lymphocytes % (Manual) Seg Neutrophils # Seg Neutrophils # Man Lymphocytes # (Manual) Monocytes % (Manual) Eosinophils % (Manual) Monocytes # (Manual) Eosinophils # (Manual) D-Dimer Heparin Anti-Xa Level ABG pH POC ABG pCO2 POC ABG pO2 ABG pO2 ABG HCO3 ABG O2 Saturation ABG Base Excess ABG Hemoglobin ABG Oxyhemoglobin VBG pH ABG Sodium ABG Potassium ABG Glucose Oxyhemoglobin Sodium Potassium Chloride Carbon Dioxide BUN Creatinine Glucose POC Glucose 169 H 185 H Lactic Acid Calcium Ferritin AST Alkaline Phosphatase Magnesium Lactate Dehydrogenase Total Creatine Kinase CK-MB (CK-2) C-Reactive Protein Total Protein Albumin Troponin T HDL Cholesterol Arterial Blood Glucose Urine WBC (Auto) Urine Creatinine Urine Total Protein Phenytoin Coronavirus (PCR) Positive A Crossmatch 07/14/20 07/15/20 07/15/20 17:23 00:04 06:06 WBC RBC Hgb Hct MCHC RDW Lymph % (Auto) [place] % (Auto) Eos % (Auto) Lymph # [place] # Lymph # (Auto) [place] # (Auto) Eos # (Auto) Seg Neutrophils % Seg Neuts % (Manual) Lymphocytes % (Manual) Seg Neutrophils # Seg Neutrophils # Man Lymphocytes # (Manual) Monocytes % (Manual) Eosinophils % (Manual) Monocytes # (Manual) Eosinophils # (Manual) D-Dimer Heparin Anti-Xa Level ABG pH POC ABG pCO2 POC ABG pO2 ABG pO2 ABG HCO3 ABG O2 Saturation ABG Base Excess ABG Hemoglobin ABG Oxyhemoglobin VBG pH ABG Sodium ABG Potassium ABG Glucose Oxyhemoglobin Sodium Potassium Chloride Carbon Dioxide BUN Creatinine Glucose POC Glucose 138 H 121 H 140 H Lactic Acid Calcium Ferritin AST Alkaline Phosphatase Magnesium Lactate Dehydrogenase Total Creatine Kinase CK-MB (CK-2) C-Reactive Protein Total Protein Albumin Troponin T HDL Cholesterol Arterial Blood Glucose Urine WBC (Auto) Urine Creatinine Urine Total Protein Phenytoin Coronavirus (PCR) Crossmatch 07/15/20 07/15/20 07/15/20 12:00 17:53 23:53 WBC RBC Hgb Hct MCHC RDW Lymph % (Auto) [place] % (Auto) Eos % (Auto) Lymph # [place] # Lymph # (Auto) [place] # (Auto) Eos # (Auto) Seg Neutrophils % Seg Neuts % (Manual) Lymphocytes % (Manual) Seg Neutrophils # Seg Neutrophils # Man Lymphocytes # (Manual) Monocytes % (Manual) Eosinophils % (Manual) Monocytes # (Manual) Eosinophils # (Manual) D-Dimer Heparin Anti-Xa Level ABG pH POC ABG pCO2 POC ABG pO2 ABG pO2 ABG HCO3 ABG O2 Saturation ABG Base Excess ABG Hemoglobin ABG Oxyhemoglobin VBG pH ABG Sodium ABG Potassium ABG Glucose Oxyhemoglobin Sodium Potassium Chloride Carbon Dioxide BUN Creatinine Glucose POC Glucose 137 H 161 H 156 H Lactic Acid Calcium Ferritin AST Alkaline Phosphatase Magnesium Lactate Dehydrogenase Total Creatine Kinase CK-MB (CK-2) C-Reactive Protein Total Protein Albumin Troponin T HDL Cholesterol Arterial Blood Glucose Urine WBC (Auto) Urine Creatinine Urine Total Protein Phenytoin Coronavirus (PCR) Crossmatch 07/16/20 07/16/20 07/17/20 05:26 17:44 00:07 WBC RBC Hgb Hct MCHC RDW Lymph % (Auto) [place] % (Auto) Eos % (Auto) Lymph # [place] # Lymph # (Auto) [place] # (Auto) Eos # (Auto) Seg Neutrophils % Seg Neuts % (Manual) Lymphocytes % (Manual) Seg Neutrophils # Seg Neutrophils # Man Lymphocytes # (Manual) Monocytes % (Manual) Eosinophils % (Manual) Monocytes # (Manual) Eosinophils # (Manual) D-Dimer Heparin Anti-Xa Level ABG pH POC ABG pCO2 POC ABG pO2 ABG pO2 ABG HCO3 ABG O2 Saturation ABG Base Excess ABG Hemoglobin ABG Oxyhemoglobin VBG pH ABG Sodium ABG Potassium ABG Glucose Oxyhemoglobin Sodium Potassium Chloride Carbon Dioxide BUN Creatinine Glucose POC Glucose 152 H 126 H 189 H Lactic Acid Calcium Ferritin AST Alkaline Phosphatase Magnesium Lactate Dehydrogenase Total Creatine Kinase CK-MB (CK-2) C-Reactive Protein Total Protein Albumin Troponin T HDL Cholesterol Arterial Blood Glucose Urine WBC (Auto) Urine Creatinine Urine Total Protein Phenytoin Coronavirus (PCR) Crossmatch 07/17/20 07/17/20 07/17/20 12:06 18:20 23:25 WBC RBC Hgb Hct MCHC RDW Lymph % (Auto) [place] % (Auto) Eos % (Auto) Lymph # [place] # Lymph # (Auto) [place] # (Auto) Eos # (Auto) Seg Neutrophils % Seg Neuts % (Manual) Lymphocytes % (Manual) Seg Neutrophils # Seg Neutrophils # Man Lymphocytes # (Manual) Monocytes % (Manual) Eosinophils % (Manual) Monocytes # (Manual) Eosinophils # (Manual) D-Dimer Heparin Anti-Xa Level ABG pH POC ABG pCO2 POC ABG pO2 ABG pO2 ABG HCO3 ABG O2 Saturation ABG Base Excess ABG Hemoglobin ABG Oxyhemoglobin VBG pH ABG Sodium ABG Potassium ABG Glucose Oxyhemoglobin Sodium Potassium Chloride Carbon Dioxide BUN Creatinine Glucose POC Glucose 155 H 206 H 161 H Lactic Acid Calcium Ferritin AST Alkaline Phosphatase Magnesium Lactate Dehydrogenase Total Creatine Kinase CK-MB (CK-2) C-Reactive Protein Total Protein Albumin Troponin T HDL Cholesterol Arterial Blood Glucose Urine WBC (Auto) Urine Creatinine Urine Total Protein Phenytoin Coronavirus (PCR) Crossmatch 07/18/20 07/18/20 07/18/20 04:24 05:16 11:53 WBC RBC Hgb Hct MCHC RDW Lymph % (Auto) [place] % (Auto) Eos % (Auto) Lymph # [place] # Lymph # (Auto) [place] # (Auto) Eos # (Auto) Seg Neutrophils % Seg Neuts % (Manual) Lymphocytes % (Manual) Seg Neutrophils # Seg Neutrophils # Man Lymphocytes # (Manual) Monocytes % (Manual) Eosinophils % (Manual) Monocytes # (Manual) Eosinophils # (Manual) D-Dimer Heparin Anti-Xa Level ABG pH POC ABG pCO2 POC ABG pO2 ABG pO2 ABG HCO3 ABG O2 Saturation ABG Base Excess ABG Hemoglobin 8.8 L ABG Oxyhemoglobin VBG pH ABG Sodium 131.6 L ABG Potassium 4.9 H ABG Glucose 131 H Oxyhemoglobin Sodium Potassium Chloride Carbon Dioxide BUN Creatinine Glucose POC Glucose 140 H 176 H Lactic Acid Calcium Ferritin AST Alkaline Phosphatase Magnesium Lactate Dehydrogenase Total Creatine Kinase CK-MB (CK-2) C-Reactive Protein Total Protein Albumin Troponin T HDL Cholesterol Arterial Blood Glucose 131 H Urine WBC (Auto) Urine Creatinine Urine Total Protein Phenytoin Coronavirus (PCR) Crossmatch 07/18/20 07/18/20 07/19/20 18:11 23:51 01:05 WBC RBC 2.76 L Hgb 7.9 L Hct 24.5 L MCHC RDW 17.6 H Lymph % (Auto) 11.6 L [place] % (Auto) 13.1 H Eos % (Auto) Lymph # [place] # Lymph # (Auto) 1.0 L [place] # (Auto) 1.1 H Eos # (Auto) Seg Neutrophils % 70.9 H Seg Neuts % (Manual) Lymphocytes % (Manual) Seg Neutrophils # Seg Neutrophils # Man Lymphocytes # (Manual) Monocytes % (Manual) Eosinophils % (Manual) Monocytes # (Manual) Eosinophils # (Manual) D-Dimer Heparin Anti-Xa Level ABG pH POC ABG pCO2 POC ABG pO2 ABG pO2 ABG HCO3 ABG O2 Saturation ABG Base Excess ABG Hemoglobin ABG Oxyhemoglobin VBG pH ABG Sodium ABG Potassium ABG Glucose Oxyhemoglobin Sodium Potassium Chloride Carbon Dioxide BUN Creatinine Glucose POC Glucose 143 H 159 H Lactic Acid Calcium Ferritin AST Alkaline Phosphatase Magnesium Lactate Dehydrogenase Total Creatine Kinase CK-MB (CK-2) C-Reactive Protein Total Protein Albumin Troponin T HDL Cholesterol Arterial Blood Glucose Urine WBC (Auto) Urine Creatinine Urine Total Protein Phenytoin Coronavirus (PCR) Crossmatch 07/19/20 07/19/20 07/19/20 01:05 05:54 12:46 WBC RBC Hgb Hct MCHC RDW Lymph % (Auto) [place] % (Auto) Eos % (Auto) Lymph # [place] # Lymph # (Auto) [place] # (Auto) Eos # (Auto) Seg Neutrophils % Seg Neuts % (Manual) Lymphocytes % (Manual) Seg Neutrophils # Seg Neutrophils # Man Lymphocytes # (Manual) Monocytes % (Manual) Eosinophils % (Manual) Monocytes # (Manual) Eosinophils # (Manual) D-Dimer Heparin Anti-Xa Level ABG pH POC ABG pCO2 POC ABG pO2 ABG pO2 ABG HCO3 ABG O2 Saturation ABG Base Excess ABG Hemoglobin ABG Oxyhemoglobin VBG pH ABG Sodium ABG Potassium ABG Glucose Oxyhemoglobin Sodium Potassium Chloride Carbon Dioxide BUN 86 H Creatinine 1.7 H Glucose 149 H POC Glucose 176 H 127 H Lactic Acid Calcium Ferritin AST Alkaline Phosphatase Magnesium Lactate Dehydrogenase Total Creatine Kinase CK-MB (CK-2) C-Reactive Protein Total Protein Albumin Troponin T HDL Cholesterol Arterial Blood Glucose Urine WBC (Auto) Urine Creatinine Urine Total Protein Phenytoin Coronavirus (PCR) Crossmatch 07/19/20 07/20/20 07/20/20 17:48 00:34 05:28 WBC RBC Hgb Hct MCHC RDW Lymph % (Auto) [place] % (Auto) Eos % (Auto) Lymph # [place] # Lymph # (Auto) [place] # (Auto) Eos # (Auto) Seg Neutrophils % Seg Neuts % (Manual) Lymphocytes % (Manual) Seg Neutrophils # Seg Neutrophils # Man Lymphocytes # (Manual) Monocytes % (Manual) Eosinophils % (Manual) Monocytes # (Manual) Eosinophils # (Manual) D-Dimer Heparin Anti-Xa Level ABG pH POC ABG pCO2 POC ABG pO2 ABG pO2 ABG HCO3 ABG O2 Saturation ABG Base Excess ABG Hemoglobin ABG Oxyhemoglobin VBG pH ABG Sodium ABG Potassium ABG Glucose Oxyhemoglobin Sodium Potassium Chloride Carbon Dioxide BUN Creatinine Glucose POC Glucose 123 H 147 H 110 H Lactic Acid Calcium Ferritin AST Alkaline Phosphatase Magnesium Lactate Dehydrogenase Total Creatine Kinase CK-MB (CK-2) C-Reactive Protein Total Protein Albumin Troponin T HDL Cholesterol Arterial Blood Glucose Urine WBC (Auto) Urine Creatinine Urine Total Protein Phenytoin Coronavirus (PCR) Crossmatch 07/20/20 07/20/20 07/21/20 12:10 17:00 00:11 WBC RBC Hgb Hct MCHC RDW Lymph % (Auto) [place] % (Auto) Eos % (Auto) Lymph # [place] # Lymph # (Auto) [place] # (Auto) Eos # (Auto) Seg Neutrophils % Seg Neuts % (Manual) Lymphocytes % (Manual) Seg Neutrophils # Seg Neutrophils # Man Lymphocytes # (Manual) Monocytes % (Manual) Eosinophils % (Manual) Monocytes # (Manual) Eosinophils # (Manual) D-Dimer Heparin Anti-Xa Level ABG pH POC ABG pCO2 POC ABG pO2 ABG pO2 ABG HCO3 ABG O2 Saturation ABG Base Excess ABG Hemoglobin ABG Oxyhemoglobin VBG pH ABG Sodium ABG Potassium ABG Glucose Oxyhemoglobin Sodium Potassium Chloride Carbon Dioxide BUN Creatinine Glucose POC Glucose 149 H 173 H 128 H Lactic Acid Calcium Ferritin AST Alkaline Phosphatase Magnesium Lactate Dehydrogenase Total Creatine Kinase CK-MB (CK-2) C-Reactive Protein Total Protein Albumin Troponin T HDL Cholesterol Arterial Blood Glucose Urine WBC (Auto) Urine Creatinine Urine Total Protein Phenytoin Coronavirus (PCR) Crossmatch 07/21/20 07/21/20 07/21/20 05:30 12:21 18:17 WBC RBC Hgb Hct MCHC RDW Lymph % (Auto) [place] % (Auto) Eos % (Auto) Lymph # [place] # Lymph # (Auto) [place] # (Auto) Eos # (Auto) Seg Neutrophils % Seg Neuts % (Manual) Lymphocytes % (Manual) Seg Neutrophils # Seg Neutrophils # Man Lymphocytes # (Manual) Monocytes % (Manual) Eosinophils % (Manual) Monocytes # (Manual) Eosinophils # (Manual) D-Dimer Heparin Anti-Xa Level ABG pH POC ABG pCO2 POC ABG pO2 ABG pO2 ABG HCO3 ABG O2 Saturation ABG Base Excess ABG Hemoglobin ABG Oxyhemoglobin VBG pH ABG Sodium ABG Potassium ABG Glucose Oxyhemoglobin Sodium Potassium Chloride Carbon Dioxide BUN Creatinine Glucose POC Glucose 153 H 144 H 160 H Lactic Acid Calcium Ferritin AST Alkaline Phosphatase Magnesium Lactate Dehydrogenase Total Creatine Kinase CK-MB (CK-2) C-Reactive Protein Total Protein Albumin Troponin T HDL Cholesterol Arterial Blood Glucose Urine WBC (Auto) Urine Creatinine Urine Total Protein Phenytoin Coronavirus (PCR) Crossmatch 07/22/20 07/22/20 07/22/20 00:45 05:52 12:03 WBC RBC Hgb Hct MCHC RDW Lymph % (Auto) [place] % (Auto) Eos % (Auto) Lymph # [place] # Lymph # (Auto) [place] # (Auto) Eos # (Auto) Seg Neutrophils % Seg Neuts % (Manual) Lymphocytes % (Manual) Seg Neutrophils # Seg Neutrophils # Man Lymphocytes # (Manual) Monocytes % (Manual) Eosinophils % (Manual) Monocytes # (Manual) Eosinophils # (Manual) D-Dimer Heparin Anti-Xa Level ABG pH POC ABG pCO2 POC ABG pO2 ABG pO2 ABG HCO3 ABG O2 Saturation ABG Base Excess ABG Hemoglobin ABG Oxyhemoglobin VBG pH ABG Sodium ABG Potassium ABG Glucose Oxyhemoglobin Sodium Potassium Chloride Carbon Dioxide BUN Creatinine Glucose POC Glucose 128 H 126 H 157 H Lactic Acid Calcium Ferritin AST Alkaline Phosphatase Magnesium Lactate Dehydrogenase Total Creatine Kinase CK-MB (CK-2) C-Reactive Protein Total Protein Albumin Troponin T HDL Cholesterol Arterial Blood Glucose Urine WBC (Auto) Urine Creatinine Urine Total Protein Phenytoin Coronavirus (PCR) Crossmatch 07/22/20 07/22/20 07/23/20 18:23 23:20 06:06 WBC RBC Hgb Hct MCHC RDW Lymph % (Auto) [place] % (Auto) Eos % (Auto) Lymph # [place] # Lymph # (Auto) [place] # (Auto) Eos # (Auto) Seg Neutrophils % Seg Neuts % (Manual) Lymphocytes % (Manual) Seg Neutrophils # Seg Neutrophils # Man Lymphocytes # (Manual) Monocytes % (Manual) Eosinophils % (Manual) Monocytes # (Manual) Eosinophils # (Manual) D-Dimer Heparin Anti-Xa Level ABG pH POC ABG pCO2 POC ABG pO2 ABG pO2 ABG HCO3 ABG O2 Saturation ABG Base Excess ABG Hemoglobin ABG Oxyhemoglobin VBG pH ABG Sodium ABG Potassium ABG Glucose Oxyhemoglobin Sodium Potassium Chloride Carbon Dioxide BUN Creatinine Glucose POC Glucose 152 H 122 H 143 H Lactic Acid Calcium Ferritin AST Alkaline Phosphatase Magnesium Lactate Dehydrogenase Total Creatine Kinase CK-MB (CK-2) C-Reactive Protein Total Protein Albumin Troponin T HDL Cholesterol Arterial Blood Glucose Urine WBC (Auto) Urine Creatinine Urine Total Protein Phenytoin Coronavirus (PCR) Crossmatch 07/23/20 07/23/20 07/23/20 12:11 17:38 19:23 WBC RBC Hgb Hct MCHC RDW Lymph % (Auto) [place] % (Auto) Eos % (Auto) Lymph # [place] # Lymph # (Auto) [place] # (Auto) Eos # (Auto) Seg Neutrophils % Seg Neuts % (Manual) Lymphocytes % (Manual) Seg Neutrophils # Seg Neutrophils # Man Lymphocytes # (Manual) Monocytes % (Manual) Eosinophils % (Manual) Monocytes # (Manual) Eosinophils # (Manual) D-Dimer Heparin Anti-Xa Level ABG pH POC ABG pCO2 POC ABG pO2 ABG pO2 ABG HCO3 ABG O2 Saturation ABG Base Excess ABG Hemoglobin ABG Oxyhemoglobin VBG pH ABG Sodium ABG Potassium ABG Glucose Oxyhemoglobin Sodium 129 L D Potassium 5.8 H Chloride 95.6 L Carbon Dioxide BUN 98 H Creatinine 2.1 H Glucose 167 H POC Glucose 210 H 181 H Lactic Acid Calcium Ferritin AST Alkaline Phosphatase Magnesium Lactate Dehydrogenase Total Creatine Kinase CK-MB (CK-2) C-Reactive Protein Total Protein Albumin 2.2 L Troponin T HDL Cholesterol Arterial Blood Glucose Urine WBC (Auto) Urine Creatinine Urine Total Protein Phenytoin Coronavirus (PCR) Crossmatch 07/24/20 07/24/20 07/24/20 00:00 04:29 04:29 WBC RBC 2.53 L Hgb 7.5 L Hct 22.8 L MCHC RDW 16.8 H Lymph % (Auto) 9.4 L [place] % (Auto) 10.4 H Eos % (Auto) 5.9 H Lymph # [place] # Lymph # (Auto) 0.8 L [place] # (Auto) 0.9 H Eos # (Auto) 0.5 H Seg Neutrophils % 73.5 H Seg Neuts % (Manual) Lymphocytes % (Manual) Seg Neutrophils # Seg Neutrophils # Man Lymphocytes # (Manual) Monocytes % (Manual) Eosinophils % (Manual) Monocytes # (Manual) Eosinophils # (Manual) D-Dimer Heparin Anti-Xa Level ABG pH POC ABG pCO2 POC ABG pO2 ABG pO2 ABG HCO3 ABG O2 Saturation ABG Base Excess ABG Hemoglobin ABG Oxyhemoglobin VBG pH ABG Sodium ABG Potassium ABG Glucose Oxyhemoglobin Sodium Potassium Chloride Carbon Dioxide BUN Creatinine Glucose POC Glucose 201 H Lactic Acid Calcium Ferritin AST Alkaline Phosphatase Magnesium Lactate Dehydrogenase Total Creatine Kinase CK-MB (CK-2) C-Reactive Protein Total Protein Albumin Troponin T HDL Cholesterol Arterial Blood Glucose Urine WBC (Auto) Urine Creatinine Urine Total Protein Phenytoin 9.4 L Coronavirus (PCR) Crossmatch 07/24/20 07/24/20 07/24/20 04:29 05:11 12:14 WBC RBC Hgb Hct MCHC RDW Lymph % (Auto) [place] % (Auto) Eos % (Auto) Lymph # [place] # Lymph # (Auto) [place] # (Auto) Eos # (Auto) Seg Neutrophils % Seg Neuts % (Manual) Lymphocytes % (Manual) Seg Neutrophils # Seg Neutrophils # Man Lymphocytes # (Manual) Monocytes % (Manual) Eosinophils % (Manual) Monocytes # (Manual) Eosinophils # (Manual) D-Dimer Heparin Anti-Xa Level ABG pH POC ABG pCO2 POC ABG pO2 ABG pO2 ABG HCO3 ABG O2 Saturation ABG Base Excess ABG Hemoglobin ABG Oxyhemoglobin VBG pH ABG Sodium ABG Potassium ABG Glucose Oxyhemoglobin Sodium 134 L Potassium 5.5 H Chloride Carbon Dioxide BUN 97 H Creatinine 2.2 H Glucose 149 H POC Glucose 142 H 146 H Lactic Acid Calcium Ferritin AST Alkaline Phosphatase Magnesium 2.60 H Lactate Dehydrogenase Total Creatine Kinase CK-MB (CK-2) C-Reactive Protein Total Protein Albumin Troponin T HDL Cholesterol Arterial Blood Glucose Urine WBC (Auto) Urine Creatinine Urine Total Protein Phenytoin Coronavirus (PCR) Crossmatch 07/24/20 07/24/20 07/25/20 18:12 21:00 00:08 WBC RBC Hgb Hct MCHC RDW Lymph % (Auto) [place] % (Auto) Eos % (Auto) Lymph # [place] # Lymph # (Auto) [place] # (Auto) Eos # (Auto) Seg Neutrophils % Seg Neuts % (Manual) Lymphocytes % (Manual) Seg Neutrophils # Seg Neutrophils # Man Lymphocytes # (Manual) Monocytes % (Manual) Eosinophils % (Manual) Monocytes # (Manual) Eosinophils # (Manual) D-Dimer Heparin Anti-Xa Level ABG pH POC ABG pCO2 POC ABG pO2 ABG pO2 ABG HCO3 ABG O2 Saturation ABG Base Excess ABG Hemoglobin ABG Oxyhemoglobin VBG pH ABG Sodium ABG Potassium ABG Glucose Oxyhemoglobin Sodium Potassium Chloride Carbon Dioxide BUN Creatinine Glucose POC Glucose 182 H 170 H 129 H Lactic Acid Calcium Ferritin AST Alkaline Phosphatase Magnesium Lactate Dehydrogenase Total Creatine Kinase CK-MB (CK-2) C-Reactive Protein Total Protein Albumin Troponin T HDL Cholesterol Arterial Blood Glucose Urine WBC (Auto) Urine Creatinine Urine Total Protein Phenytoin Coronavirus (PCR) Crossmatch 07/25/20 07/25/20 07/25/20 04:24 04:24 12:19 WBC RBC 2.51 L Hgb 7.5 L Hct 22.3 L MCHC RDW 17.4 H Lymph % (Auto) [place] % (Auto) Eos % (Auto) Lymph # [place] # Lymph # (Auto) [place] # (Auto) Eos # (Auto) Seg Neutrophils % Seg Neuts % (Manual) Lymphocytes % (Manual) Seg Neutrophils # Seg Neutrophils # Man Lymphocytes # (Manual) Monocytes % (Manual) Eosinophils % (Manual) Monocytes # (Manual) Eosinophils # (Manual) D-Dimer Heparin Anti-Xa Level ABG pH POC ABG pCO2 POC ABG pO2 ABG pO2 ABG HCO3 ABG O2 Saturation ABG Base Excess ABG Hemoglobin ABG Oxyhemoglobin VBG pH ABG Sodium ABG Potassium ABG Glucose Oxyhemoglobin Sodium 132 L Potassium Chloride 95.1 L Carbon Dioxide 21 L BUN 95 H Creatinine 2.5 H Glucose 108 H POC Glucose 122 H Lactic Acid Calcium Ferritin AST Alkaline Phosphatase Magnesium Lactate Dehydrogenase Total Creatine Kinase CK-MB (CK-2) C-Reactive Protein Total Protein Albumin Troponin T HDL Cholesterol Arterial Blood Glucose Urine WBC (Auto) Urine Creatinine Urine Total Protein Phenytoin Coronavirus (PCR) Crossmatch 07/25/20 07/25/20 07/26/20 18:11 23:24 04:22 WBC RBC Hgb Hct MCHC RDW Lymph % (Auto) [place] % (Auto) Eos % (Auto) Lymph # [place] # Lymph # (Auto) [place] # (Auto) Eos # (Auto) Seg Neutrophils % Seg Neuts % (Manual) Lymphocytes % (Manual) Seg Neutrophils # Seg Neutrophils # Man Lymphocytes # (Manual) Monocytes % (Manual) Eosinophils % (Manual) Monocytes # (Manual) Eosinophils # (Manual) D-Dimer Heparin Anti-Xa Level ABG pH POC ABG pCO2 POC ABG pO2 ABG pO2 ABG HCO3 ABG O2 Saturation ABG Base Excess ABG Hemoglobin ABG Oxyhemoglobin VBG pH ABG Sodium ABG Potassium ABG Glucose Oxyhemoglobin Sodium 132 L Potassium Chloride 96.2 L Carbon Dioxide 21 L BUN 99 H Creatinine 2.5 H Glucose 132 H POC Glucose 137 H 117 H Lactic Acid Calcium 8.2 L Ferritin AST Alkaline Phosphatase Magnesium Lactate Dehydrogenase Total Creatine Kinase CK-MB (CK-2) C-Reactive Protein Total Protein Albumin Troponin T HDL Cholesterol Arterial Blood Glucose Urine WBC (Auto) Urine Creatinine Urine Total Protein Phenytoin Coronavirus (PCR) Crossmatch 07/26/20 07/26/20 07/26/20 05:58 12:21 17:31 WBC RBC Hgb Hct MCHC RDW Lymph % (Auto) [place] % (Auto) Eos % (Auto) Lymph # [place] # Lymph # (Auto) [place] # (Auto) Eos # (Auto) Seg Neutrophils % Seg Neuts % (Manual) Lymphocytes % (Manual) Seg Neutrophils # Seg Neutrophils # Man Lymphocytes # (Manual) Monocytes % (Manual) Eosinophils % (Manual) Monocytes # (Manual) Eosinophils # (Manual) D-Dimer Heparin Anti-Xa Level ABG pH POC ABG pCO2 POC ABG pO2 ABG pO2 ABG HCO3 ABG O2 Saturation ABG Base Excess ABG Hemoglobin ABG Oxyhemoglobin VBG pH ABG Sodium ABG Potassium ABG Glucose Oxyhemoglobin Sodium Potassium Chloride Carbon Dioxide BUN Creatinine Glucose POC Glucose 110 H 142 H 180 H Lactic Acid Calcium Ferritin AST Alkaline Phosphatase Magnesium Lactate Dehydrogenase Total Creatine Kinase CK-MB (CK-2) C-Reactive Protein Total Protein Albumin Troponin T HDL Cholesterol Arterial Blood Glucose Urine WBC (Auto) Urine Creatinine Urine Total Protein Phenytoin Coronavirus (PCR) Crossmatch 07/26/20 07/27/20 07/27/20 23:36 03:36 05:36 WBC RBC 2.49 L Hgb 7.3 L Hct 22.2 L MCHC RDW 17.2 H Lymph % (Auto) 11.0 L [place] % (Auto) 11.7 H Eos % (Auto) Lymph # [place] # Lymph # (Auto) 0.8 L [place] # (Auto) 0.9 H Eos # (Auto) Seg Neutrophils % 72.3 H Seg Neuts % (Manual) Lymphocytes % (Manual) Seg Neutrophils # Seg Neutrophils # Man Lymphocytes # (Manual) Monocytes % (Manual) Eosinophils % (Manual) Monocytes # (Manual) Eosinophils # (Manual) D-Dimer Heparin Anti-Xa Level ABG pH POC ABG pCO2 POC ABG pO2 ABG pO2 ABG HCO3 ABG O2 Saturation ABG Base Excess ABG Hemoglobin ABG Oxyhemoglobin VBG pH ABG Sodium ABG Potassium ABG Glucose Oxyhemoglobin Sodium Potassium Chloride Carbon Dioxide BUN Creatinine Glucose POC Glucose 162 H 118 H Lactic Acid Calcium Ferritin AST Alkaline Phosphatase Magnesium Lactate Dehydrogenase Total Creatine Kinase CK-MB (CK-2) C-Reactive Protein Total Protein Albumin Troponin T HDL Cholesterol Arterial Blood Glucose Urine WBC (Auto) Urine Creatinine Urine Total Protein Phenytoin Coronavirus (PCR) Crossmatch 07/27/20 07/27/20 07/27/20 05:36 12:19 17:36 WBC RBC Hgb Hct MCHC RDW Lymph % (Auto) [place] % (Auto) Eos % (Auto) Lymph # [place] # Lymph # (Auto) [place] # (Auto) Eos # (Auto) Seg Neutrophils % Seg Neuts % (Manual) Lymphocytes % (Manual) Seg Neutrophils # Seg Neutrophils # Man Lymphocytes # (Manual) Monocytes % (Manual) Eosinophils % (Manual) Monocytes # (Manual) Eosinophils # (Manual) D-Dimer Heparin Anti-Xa Level ABG pH POC ABG pCO2 POC ABG pO2 ABG pO2 ABG HCO3 ABG O2 Saturation ABG Base Excess ABG Hemoglobin ABG Oxyhemoglobin VBG pH ABG Sodium ABG Potassium ABG Glucose Oxyhemoglobin Sodium 135 L Potassium 5.3 H Chloride Carbon Dioxide 21 L BUN 103 H Creatinine 2.6 H Glucose 113 H POC Glucose 131 H 151 H Lactic Acid Calcium 8.1 L Ferritin AST Alkaline Phosphatase Magnesium Lactate Dehydrogenase Total Creatine Kinase CK-MB (CK-2) C-Reactive Protein Total Protein Albumin Troponin T HDL Cholesterol Arterial Blood Glucose Urine WBC (Auto) Urine Creatinine Urine Total Protein Phenytoin Coronavirus (PCR) Crossmatch 07/27/20 07/28/20 07/28/20 23:29 04:30 04:30 WBC RBC 2.50 L Hgb 7.3 L Hct 22.2 L MCHC RDW 17.3 H Lymph % (Auto) 8.7 L [place] % (Auto) 8.3 H Eos % (Auto) Lymph # [place] # Lymph # (Auto) 0.7 L [place] # (Auto) Eos # (Auto) Seg Neutrophils % 79.1 H Seg Neuts % (Manual) Lymphocytes % (Manual) Seg Neutrophils # Seg Neutrophils # Man Lymphocytes # (Manual) Monocytes % (Manual) Eosinophils % (Manual) Monocytes # (Manual) Eosinophils # (Manual) D-Dimer Heparin Anti-Xa Level ABG pH POC ABG pCO2 POC ABG pO2 ABG pO2 ABG HCO3 ABG O2 Saturation ABG Base Excess ABG Hemoglobin ABG Oxyhemoglobin VBG pH ABG Sodium ABG Potassium ABG Glucose Oxyhemoglobin Sodium 135 L Potassium 5.2 H Chloride 96.8 L Carbon Dioxide 20 L BUN 107 H Creatinine 2.9 H Glucose POC Glucose 124 H Lactic Acid Calcium 8.2 L Ferritin AST Alkaline Phosphatase Magnesium 2.70 H Lactate Dehydrogenase Total Creatine Kinase CK-MB (CK-2) C-Reactive Protein Total Protein Albumin Troponin T HDL Cholesterol Arterial Blood Glucose Urine WBC (Auto) Urine Creatinine Urine Total Protein Phenytoin Coronavirus (PCR) Crossmatch 07/28/20 07/29/20 07/29/20 17:35 00:11 06:45 WBC RBC Hgb Hct MCHC RDW Lymph % (Auto) [place] % (Auto) Eos % (Auto) Lymph # [place] # Lymph # (Auto) [place] # (Auto) Eos # (Auto) Seg Neutrophils % Seg Neuts % (Manual) Lymphocytes % (Manual) Seg Neutrophils # Seg Neutrophils # Man Lymphocytes # (Manual) Monocytes % (Manual) Eosinophils % (Manual) Monocytes # (Manual) Eosinophils # (Manual) D-Dimer Heparin Anti-Xa Level ABG pH POC ABG pCO2 POC ABG pO2 ABG pO2 ABG HCO3 ABG O2 Saturation ABG Base Excess ABG Hemoglobin ABG Oxyhemoglobin VBG pH ABG Sodium ABG Potassium ABG Glucose Oxyhemoglobin Sodium Potassium Chloride Carbon Dioxide BUN Creatinine Glucose POC Glucose 146 H 143 H 179 H Lactic Acid Calcium Ferritin AST Alkaline Phosphatase Magnesium Lactate Dehydrogenase Total Creatine Kinase CK-MB (CK-2) C-Reactive Protein Total Protein Albumin Troponin T HDL Cholesterol Arterial Blood Glucose Urine WBC (Auto) Urine Creatinine Urine Total Protein Phenytoin Coronavirus (PCR) Crossmatch 07/29/20 07/29/20 07/29/20 11:54 13:01 13:01 WBC RBC 2.40 L Hgb 7.1 L Hct 20.9 L MCHC RDW 17.5 H Lymph % (Auto) [place] % (Auto) Eos % (Auto) Lymph # [place] # Lymph # (Auto) [place] # (Auto) Eos # (Auto) Seg Neutrophils % Seg Neuts % (Manual) 86.0 H Lymphocytes % (Manual) 6.0 L Seg Neutrophils # Seg Neutrophils # Man 8.9 H Lymphocytes # (Manual) 0.6 L Monocytes % (Manual) 8.0 H Eosinophils % (Manual) Monocytes # (Manual) Eosinophils # (Manual) D-Dimer Heparin Anti-Xa Level ABG pH POC ABG pCO2 POC ABG pO2 ABG pO2 ABG HCO3 ABG O2 Saturation ABG Base Excess ABG Hemoglobin ABG Oxyhemoglobin VBG pH ABG Sodium ABG Potassium ABG Glucose Oxyhemoglobin Sodium 129 L Potassium Chloride 92.9 L Carbon Dioxide BUN 112 H Creatinine 3.0 H Glucose 142 H POC Glucose 170 H Lactic Acid Calcium 7.9 L Ferritin AST Alkaline Phosphatase Magnesium Lactate Dehydrogenase Total Creatine Kinase CK-MB (CK-2) C-Reactive Protein Total Protein Albumin Troponin T HDL Cholesterol Arterial Blood Glucose Urine WBC (Auto) Urine Creatinine Urine Total Protein Phenytoin Coronavirus (PCR) Crossmatch 07/29/20 07/30/20 07/30/20 22:45 05:01 11:45 WBC RBC Hgb Hct MCHC RDW Lymph % (Auto) [place] % (Auto) Eos % (Auto) Lymph # [place] # Lymph # (Auto) [place] # (Auto) Eos # (Auto) Seg Neutrophils % Seg Neuts % (Manual) Lymphocytes % (Manual) Seg Neutrophils # Seg Neutrophils # Man Lymphocytes # (Manual) Monocytes % (Manual) Eosinophils % (Manual) Monocytes # (Manual) Eosinophils # (Manual) D-Dimer Heparin Anti-Xa Level ABG pH POC ABG pCO2 POC ABG pO2 ABG pO2 ABG HCO3 ABG O2 Saturation ABG Base Excess ABG Hemoglobin ABG Oxyhemoglobin VBG pH ABG Sodium ABG Potassium ABG Glucose Oxyhemoglobin Sodium Potassium Chloride Carbon Dioxide BUN Creatinine Glucose POC Glucose 129 H 150 H 130 H Lactic Acid Calcium Ferritin AST Alkaline Phosphatase Magnesium Lactate Dehydrogenase Total Creatine Kinase CK-MB (CK-2) C-Reactive Protein Total Protein Albumin Troponin T HDL Cholesterol Arterial Blood Glucose Urine WBC (Auto) Urine Creatinine Urine Total Protein Phenytoin Coronavirus (PCR) Crossmatch 07/30/20 07/30/20 07/30/20 17:54 21:26 23:58 WBC RBC Hgb Hct MCHC RDW Lymph % (Auto) [place] % (Auto) Eos % (Auto) Lymph # [place] # Lymph # (Auto) [place] # (Auto) Eos # (Auto) Seg Neutrophils % Seg Neuts % (Manual) Lymphocytes % (Manual) Seg Neutrophils # Seg Neutrophils # Man Lymphocytes # (Manual) Monocytes % (Manual) Eosinophils % (Manual) Monocytes # (Manual) Eosinophils # (Manual) D-Dimer Heparin Anti-Xa Level ABG pH POC ABG pCO2 POC ABG pO2 ABG pO2 ABG HCO3 ABG O2 Saturation ABG Base Excess ABG Hemoglobin ABG Oxyhemoglobin VBG pH ABG Sodium ABG Potassium ABG Glucose Oxyhemoglobin Sodium Potassium Chloride Carbon Dioxide BUN Creatinine Glucose POC Glucose 143 H 124 H 142 H Lactic Acid Calcium Ferritin AST Alkaline Phosphatase Magnesium Lactate Dehydrogenase Total Creatine Kinase CK-MB (CK-2) C-Reactive Protein Total Protein Albumin Troponin T HDL Cholesterol Arterial Blood Glucose Urine WBC (Auto) Urine Creatinine Urine Total Protein Phenytoin Coronavirus (PCR) Crossmatch 07/31/20 07/31/20 05:43 11:35 WBC RBC Hgb Hct MCHC RDW Lymph % (Auto) [place] % (Auto) Eos % (Auto) Lymph # [place] # Lymph # (Auto) [place] # (Auto) Eos # (Auto) Seg Neutrophils % Seg Neuts % (Manual) Lymphocytes % (Manual) Seg Neutrophils # Seg Neutrophils # Man Lymphocytes # (Manual) Monocytes % (Manual) Eosinophils % (Manual) Monocytes # (Manual) Eosinophils # (Manual) D-Dimer Heparin Anti-Xa Level ABG pH POC ABG pCO2 POC ABG pO2 ABG pO2 ABG HCO3 ABG O2 Saturation ABG Base Excess ABG Hemoglobin ABG Oxyhemoglobin VBG pH ABG Sodium ABG Potassium ABG Glucose Oxyhemoglobin Sodium Potassium Chloride Carbon Dioxide BUN Creatinine Glucose POC Glucose 152 H 179 H Lactic Acid Calcium Ferritin AST Alkaline Phosphatase Magnesium Lactate Dehydrogenase Total Creatine Kinase CK-MB (CK-2) C-Reactive Protein Total Protein Albumin Troponin T HDL Cholesterol Arterial Blood Glucose Urine WBC (Auto) Urine Creatinine Urine Total Protein Phenytoin Coronavirus (PCR) Crossmatch Chest x-ray: pending Allied health notes reviewed: nursing
[2020-07-31] MEDS: INSULIN GLARGINE 100 UNITS/ML SUB-Q SCH (21:56)
[2020-08-01] MEDS: INSULIN LISPRO 100 UNIT/ML VIAL 3 mL SUB-Q SCH ×3 (00:25→14:10)
[2020-08-01] MEDS: levETIRAcetam 500 MG/5 ML ORAL LIQD PO SCH ×3 (02:12→23:52)
[2020-08-01] MEDS: HEPARIN 5,000 UNIT/1 ML VIAL SUB-Q SCH ×3 (05:51→23:55)
[2020-08-01] MEDS: cloNIDine 0.1 MG TAB PO SCH ×2 (07:16→15:16)
[2020-08-01] MEDS ORDERED: SODIUM POLYSTYRENE 15 GM/60 ML ORAL LIQD PO ONE (08:34)
--- NOTE | 2020-08-01 08:39 | Progress Note ---
Assessment and Plan Assessment and plan: 64 YO Female with a medical history of HTN, Diastolic CHF, Pulmonary HTN, DM, Obesity Hypoventilation Syndrome presents to ED for evaluation of shortness of breath. As per staff, the EMS was notified for difficulty breathing. Upon arrival to the patient's home the patient was found to be in distress and was subsequently transported to [facility] for further evaluation and care. In route to [facility] the patient developed cardiac arrest and was treated in accordance with ACLS protocol with return of ROSC. Patient was seen and evaluated in the emergency department and was intubated and placed on ventilatory support. Patient admitted to ICU. Critical care team consulted in ED. She was found to have COVID-19 infection and was started on steroids and remdesivir. ID was consulted. Cardiology was consulted for her systolic heart failure and cardiac arrest. Patient completed treatment for COVID-19, then develop superimposed bacterial pneumonia with Klebsiella. She is now extubated, 06/12/2020 but remains confused and requiring high flow O2 and intermittent BiPAP. Patient had another cardiac arrest reintubated 06/26/2020, currently in ICU vent dependent, unable to do trach and PEG due to persistent COVID-19 positive state, as well as anoxic brain injury, unable to get MRI , neurology following. Assessment and plan: 05/28/2020 COVID-19 test positive 06/29/2020 COVID-19 test positive 07/14/2020 COVID-19 test positive --Acute hypoxemic respiratory failure; vent dependent intubated on admission, extubated on 06/12/20 then placed on high flow o2 patient developed another respiratory arrest on 06/26 - reintubated Patient not tolerating weaning parameters CC following, Surgery evaluated the patient for trach and PEG COVID-19 test positive x3, trach and PEG pending neuro evaluation to evaluate severity of anoxic brain injury -- Hypertension; well controlled Increase hydralazine dose to 75 mg 3 times a day Continue amlodipine, coreg, clonidine and hydralazine And minoxidil, closely monitor blood pressures PRN labetalol --s/p cardiopulmonary arrest on admission, 06/26 and 07/01, s/p CPR per ACLS protocol, refer to code sheet --Possible anoxic brain injury, neurology consulted, neuro requested MRI brain, EEG MRI brain could not be done due to body habitus, EEG not done --Seizures seizure precautions; continue Keppra, follow EEG neurology following --Acute renal failure : creatinine 2.4-2.5-2.9-1.7 --Acute renal failure : creatinine 2.4-2.5-2.9-1.7 Vasomotor nephropathy, gentle hydration Avoid nephrotoxins, monitor renal function Reconsult nephrology if needed --Rectal bleeding; resolved --Acute blood loss anemia; total 3 units PRBC transfused Closely monitor H&H, GI following, no plans of endoscopy --Severe sepsis; completed antibiotics per ID persistently positive for COVID-19 and Klebsiella pneumoniae --COVID-19 b/l PNA Completed remdesivir on 06/02 Completed dexamethasone - Last dose 06/07 COVID 19 test positive x 3 during this admission --Superficial left cephalic vein DVT/elevated D-dimers[COVID 19] Patient initially started on heparin drip from 05/29/20 D-dimers improved [phone] treated with Eliquis 5 mg twice a day for 1 week[per ID] stop date 06/26/2020 -- Acute toxic metabolic encephalopathy, POA likely from sepsis and s/p cardiac arrest with possible anoxic injury -- Acute renal failure: likely ATN avoid nephrotoxins, reconsult nephrology if no improvement --Klebsiella pneumonia: ID evaluated completed second round of 5 days of cefepime on 07/04/2020 --Acute on chronic systolic heart failure Cardiology following. Ef 45% -- Coffee ground emesis -Stress ulcers Possible stress ulcers, On PPI H/H again dropped - transfuse GI evaluated --Transaminitis. Etiology likely from COVID-19. cont to monitor --Hyperkalemia; calcium gluconate, Kayexalate, monitor electrolytes --Shock; fluid bolus, Levophed per protocol Patient critically ill poor prognosis Currently patient is hypertensive -- DVT prophylaxis Eliquis, SCD to bilateral lower extremities while in bed -- Advance care planning Patient is critically ill with multiple medical problems Poor prognosis, family updated and requesting full code The high probability of a clinically significant, sudden or life threatening deterioration of the [CVS, renal, respiratory, [employer]PERVISOR [employer]HY[employer]OGENATION] system(s) required my full and direct attention, intervention and personal management. The aggregate critical care time was [35] minutes. This time is in addition to time spent performing reported procedures but includes the following: [x] Data Review and interpretation [x] Patient assessment and monitoring of vital signs [x] Documentation [x] Medication orders and management 07/11/2020. Patient currently on mechanical ventilation AC/PRVC with rate of 12, tidal volume 450, FiO2 30% and PEEP of 6 07/12/2020. Patient placed on CPAP with pressure support of 10 and tolerating well. Continue PSB trials as tolerated. 07/13/2020. Patient currently with AC mode rate 12, tidal volume 450, FiO2 30% and PEEP of 6. Surgery has been consulted for trach and PEG placement. Recall nephrology for renal insufficiency. 07/14/20; surgery evaluated for trach and PEG , pending call with test which is is positive today COVID-19 test positive x3 since admission 07/16; trach and PEG pending neuro evaluation 07/17; vent dependent, trach PEG pending neuro evaluation, pending MRI EEG study[already ordered] 07/18; unable to do MRI, due to body habitus, morbid obesity, radiology consult Patient critically ill very poor prognosis 07/19; remains intubated on vent, clinically no change 07/20; unable to wean, needs trach and PEG, need MRI , unable to do due to body habitus 07/21; clinically no change, remains intubated on ventilatory support 07/22; I recommend family meeting, to discuss the goals of treatment, discussed with case management 07/23; patient's blood pressures in the lower range, will hold antihypertensives, fluid bolus, if no improvement Levophed per protocol 07/24: Patient remains critically ill, unable to obtain MRI at this facility and unstable for transfer, Will reconsult Nephrology as creatinine now worse, with worsening Hypotension and Hyperkalemia- Overnight the patient required pressors Secondary to Hypotension, Will place PICC line. Will give kayxalate, continue to hold all BP meds. Hyponatermia improving. 07/24; patient remains to critically ill, nephrology consult appreciated, creatinine is worsening. Hypotension resolved with. Still patient is hypernatremic 07/26; patient is hypertensive and her blood pressure medications were resumed and as needed medications also started. Patient is being followed by nephrology for hyponatremia and AVANI. Patient has anemia. We will check labs in the morning. 07/27; patient is still intubated and on mechanical ventilation. Followed by pulmonary critical care. Nephrology is considering to dialyze the patient after discussing with the family. 07/28; patient is intubated and on mechanical ventilation, patient is nonresponsive without pressors. Creatinine is trending up and nephrology is considering to dialysis. I called her son Toño at [phone] and discussed about the prognosis of the patient and I gave the option of hospice care/withdraw care and he said he is going to talk to his sister and will get back to me. 07/29/2020;patient is intubated and on mechanical ventilation, patient is nonresponsive without pressors. Creatinine is trending up and nephrology is considering to dialysis. I called her son Toño on 07/28 at [phone] and discussed about the prognosis of the patient and I gave the option of hospice care/withdraw care and he said he is going to talk to his sister and will get back to me. Nephrology discussed with the son this morning and the son said he want aggressive management and she is going to be started on dialysis. 07/30; patient's son wants hospice. Declined dialysis. 07/31; plan was to send the patient to hospice but her son does not want to sign AND. Family declined dialysis. Going to talk to the son. 08/01; plans to send the patient to hospice. Patient does not want to sign AND. We called him back but he did not answer. History Interval history: Patient was seen and evaluated this morning Patient is intubated and on mechanical ventilation Not responding Hospitalist Physical - Physical exam Narrative exam: Intubated and on mechanical ventilation The patient is morbidly obese. Vital signs as documented. Head exam is unremarkable. No scleral icterus . Neck is without jugular venous distension, thyromegaly, or carotid bruits. Lungs are clear to auscultation. Cardiac exam reveals regular rate and Rhythm. Abdominal exam reveals normal bowel sounds, nontender, no organomegaly. Extremities are nonedematous and both femoral and pedal pulses are normal. [employer]: Intubated. - Constitutional Vitals: Temp Pulse Resp BP Pulse Ox 98.4 F 55 L 13 163/62 98 08/01/20 08:00 08/01/20 08:01 08/01/20 08:01 08/01/20 08:01 08/01/20 08:01 General appearance: Present: no acute distress, well-nourished, obese (Morbidly obese), other (Intubated on ventilatory support) HEART Score - HEART Score Troponin: Troponin T 0.067 ng/mL (0.00-0.029) H 07/01/20 06:01 Results - Labs CBC & Chem 7: 07/29/20 13:01 08/01/20 04:43 Labs: Laboratory Last Values WBC 10.3 K/mm3 (4.5-11.0) 07/29/20 13:01 RBC 2.40 M/mm3 (3.65-5.03) L 07/29/20 13:01 Hgb 7.1 gm/dl (10.1-14.3) L 07/29/20 13:01 Hct 20.9 % (30.3-42.9) L 07/29/20 13:01 MCV 87 fl (79-97) 07/29/20 13:01 MCH 30 pg (28-32) 07/29/20 13:01 MCHC 34 % (30-34) 07/29/20 13:01 RDW 17.5 % (13.2-15.2) H 07/29/20 13:01 Plt Count 430 K/mm3 (140-440) 07/29/20 13:01 Lymph % (Auto) 8.7 % (13.4-35.0) L 07/28/20 04:30 [place] % (Auto) 8.3 % (0.0-7.3) H 07/28/20 04:30 Eos % (Auto) 3.3 % (0.0-4.3) 07/28/20 04:30 Baso % (Auto) 0.6 % (0.0-1.8) 07/28/20 04:30 Lymph # (Auto) 0.7 K/mm3 (1.2-5.4) L 07/28/20 04:30 [place] # (Auto) 0.7 K/mm3 (0.0-0.8) 07/28/20 04:30 Eos # (Auto) 0.3 K/mm3 (0.0-0.4) 07/28/20 04:30 Baso # (Auto) 0.1 K/mm3 (0.0-0.1) 07/28/20 04:30 Add Manual Diff Complete 07/29/20 13:01 Total Counted 100 07/29/20 13:01 Seg Neutrophils % 79.1 % (40.0-70.0) H 07/28/20 04:30 Seg Neuts % (Manual) 86.0 % (40.0-70.0) H 07/29/20 13:01 Band Neutrophils % 0 % 07/29/20 13:01 Lymphocytes % (Manual) 6.0 % (13.4-35.0) L 07/29/20 13:01 Reactive Lymphs % (Man) 0 % 07/29/20 13:01 Monocytes % (Manual) 8.0 % (0.0-7.3) H 07/29/20 13:01 Eosinophils % (Manual) 0 % (0.0-4.3) 07/29/20 13:01 Basophils % (Manual) 0 % (0.0-1.8) 07/29/20 13:01 Metamyelocytes % 0 % 07/29/20 13:01 Myelocytes % 0 % 07/29/20 13:01 Promyelocytes % 0 % 07/29/20 13:01 Blast Cells % 0 % 07/29/20 13:01 Nucleated RBC % Not Reportable 07/29/20 13:01 Seg Neutrophils # 6.4 K/mm3 (1.8-7.7) 07/28/20 04:30 Seg Neutrophils # Man 8.9 K/mm3 (1.8-7.7) H 07/29/20 13:01 Band Neutrophils # 0.0 K/mm3 07/29/20 13:01 Lymphocytes # (Manual) 0.6 K/mm3 (1.2-5.4) L 07/29/20 13:01 Abs React Lymphs (Man) 0.0 K/mm3 07/29/20 13:01 Monocytes # (Manual) 0.8 K/mm3 (0.0-0.8) 07/29/20 13:01 Eosinophils # (Manual) 0.0 K/mm3 (0.0-0.4) 07/29/20 13:01 Basophils # (Manual) 0.0 K/mm3 (0.0-0.1) 07/29/20 13:01 Metamyelocytes # 0.0 K/mm3 07/29/20 13:01 Myelocytes # 0.0 K/mm3 07/29/20 13:01 Promyelocytes # 0.0 K/mm3 07/29/20 13:01 Blast Cells # 0.0 K/mm3 07/29/20 13:01 WBC Morphology Not Reportable 07/29/20 13:01 Hypersegmented Neuts Not Reportable 07/29/20 13:01 Hyposegmented Neuts Not Reportable 07/29/20 13:01 Hypogranular Neuts Not Reportable 07/29/20 13:01 Smudge Cells Not Reportable 07/29/20 13:01 Toxic Granulation Not Reportable 07/29/20 13:01 Toxic Vacuolation Not Reportable 07/29/20 13:01 Dohle Bodies Not Reportable 07/29/20 13:01 Pelger-Huet Anomaly Not Reportable 07/29/20 13:01 Sanjuanita Rods Not Reportable 07/29/20 13:01 Platelet Estimate Consistent w auto 07/29/20 13:01 Clumped Platelets Not Reportable 07/29/20 13:01 Plt Clumps, EDTA Not Reportable 07/29/20 13:01 Large Platelets Not Reportable 07/29/20 13:01 Giant Platelets Not Reportable 07/29/20 13:01 Platelet Satelliting Not Reportable 07/29/20 13:01 Plt Morphology Comment Not Reportable 07/29/20 13:01 RBC Morphology Normal 07/29/20 13:01 Dimorphic RBCs Not Reportable 07/29/20 13:01 Polychromasia Not Reportable 07/29/20 13:01 Hypochromasia Not Reportable 07/29/20 13:01 Poikilocytosis Not Reportable 07/29/20 13:01 Anisocytosis Not Reportable 07/29/20 13:01 Microcytosis Not Reportable 07/29/20 13:01 Macrocytosis Not Reportable 07/29/20 13:01 Spherocytes Not Reportable 07/29/20 13:01 Pappenheimer Bodies Not Reportable 07/29/20 13:01 Sickle Cells Not Reportable 07/29/20 13:01 Target Cells Not Reportable 07/29/20 13:01 Tear Drop Cells Not Reportable 07/29/20 13:01 Ovalocytes Not Reportable 07/29/20 13:01 Helmet Cells Not Reportable 07/29/20 13:01 Jones-Norman Bodies Not Reportable 07/29/20 13:01 Lily Rings Not Reportable 07/29/20 13:01 [place] Cells Not Reportable 07/29/20 13:01 Bite Cells Not Reportable 07/29/20 13:01 Crenated Cell Not Reportable 07/29/20 13:01 Elliptocytes Not Reportable 07/29/20 13:01 Acanthocytes (Spur) Not Reportable 07/29/20 13:01 Rouleaux Not Reportable 07/29/20 13:01 Hemoglobin C Crystals Not Reportable 07/29/20 13:01 Schistocytes Not Reportable 07/29/20 13:01 Malaria parasites Not Reportable 07/29/20 13:01 Kev Bodies Not Reportable 07/29/20 13:01 Hem Pathologist Commnt No 07/29/20 13:01 PT 14.2 Sec. (12.2-14.9) 05/29/20 15:10 INR 1.08 (0.87-1.13) 05/29/20 15:10 APTT 27.2 Sec. (24.2-36.6) 05/29/20 15:10 D-Dimer 2310.15 ng/mlDDU (0-234) H 06/29/20 14:45 Heparin Anti-Xa Level 0.34 U.I./ml (0.3-0.7) 06/19/20 10:46 ABG pH 7.382 (7.320-7.450) 07/18/20 04:24 POC ABG pCO2 44.1 mmHg (32.0-48.0) 07/18/20 04:24 ABG pCO2 47.0 mm Hg 07/05/20 13:05 ABG Oxyhemoglobin 92.6 (94-98) L 06/23/20 12:34 POC ABG pO2 86.8 mmHg (83-108) 07/18/20 04:24 ABG pO2 78.3 mm Hg (80.0-90.0) L 07/05/20 13:05 POC ABG HCO3 25.6 07/18/20 04:24 ABG HCO3 23.4 mmol/L (20.0-26.0) 07/05/20 13:05 ABG O2 Saturation 96.1 % (95.0-99.0) 07/05/20 13:05 ABG O2 Content 0.3 (0.0-44) 07/05/20 13:05 POC ABG Base Excess 0.4 07/18/20 04:24 ABG Base Excess -2.6 mmol/L (-2.0-3.0) L 07/05/20 13:05 ABG Hemoglobin 8.8 (12.0-17.5) L 07/18/20 04:24 ABG Carboxyhemoglobin 1.7 % (0.0-5.0) 07/05/20 13:05 ABG Methemoglobin 0.2 % (0.0-1.5) 07/05/20 13:05 VBG pH 7.152 (7.320-7.420) L* 05/28/20 13:47 ABG Sodium 131.6 mmol/L (136.0-145.0) L 07/18/20 04:24 ABG Potassium 4.9 mmol/L (3.40-4.50) H 07/18/20 04:24 ABG Chloride 104.0 mmol/L (98-107) 07/18/20 04:24 ABG Glucose 131 mg/dL (65-95) H 07/18/20 04:24 Carboxyhemoglobin 0.5 (0.5-1.5) 06/23/20 12:34 Oxyhemoglobin 97.4 % (95.0-99.0) 07/05/20 13:05 FiO2 30.0 07/18/20 04:24 Sodium 128 mmol/L (137-145) L 08/01/20 04:43 Potassium 5.8 mmol/L (3.6-5.0) H 08/01/20 04:43 Chloride 90.5 mmol/L (98-107) L 08/01/20 04:43 Carbon Dioxide 19 mmol/L (22-30) L 08/01/20 04:43 Anion Gap 24 mmol/L 08/01/20 04:43 BUN 122 mg/dL (7-17) H 08/01/20 04:43 Creatinine 3.4 mg/dL (0.6-1.2) H 08/01/20 04:43 Estimated GFR 14 ml/min 08/01/20 04:43 BUN/Creatinine Ratio 36 % 08/01/20 04:43 Glucose 124 mg/dL (65-100) H 08/01/20 04:43 POC Glucose 130 mg/dL (70-105) H 08/01/20 05:41 Lactic Acid 0.60 mmol/L (0.7-2.0) L 06/27/20 05:00 Calcium 8.0 mg/dL (8.4-10.2) L 08/01/20 04:43 Ferritin 223.6 ng/mL (10.0-200.0) H 06/29/20 14:45 Magnesium 2.70 mg/dL (1.7-2.3) H 07/28/20 04:30 Lactate Dehydrogenase 367 units/L (91-180) H 06/29/20 14:45 Total Bilirubin 0.20 mg/dL (0.1-1.2) 07/23/20 19:23 AST 35 units/L (5-40) 07/23/20 19: ALT 14 units/L (7-56) 07/23/20 19:23 Alkaline Phosphatase 124 units/L (35-129) 07/23/20 19:23 C-Reactive Protein 3.60 mg/dL (0.00-1.30) H 06/29/20 14:45 Total Creatine Kinase 300 units/L (30-135) H 07/01/20 06:01 CK-MB (CK-2) 2.0 ng/mL (0.0-4.0) 07/01/20 06:01 CK-MB (CK-2) Rel Index 0.6 (0-4) 07/01/20 06:01 Troponin T 0.067 ng/mL (0.00-0.029) H 07/01/20 06:01 Total Protein 6.3 g/dL (6.3-8.2) 07/23/20 19: Albumin 2.2 g/dL (3.9-5) L 07/23/20 19: Albumin/Globulin Ratio 0.5 % 07/23/20 19: Triglycerides 142 mg/dL (2-149) 07/01/20 06:01 Cholesterol 137 mg/dL (50-199) 07/01/20 06:01 LDL Cholesterol Direct 62 mg/dL (50-130) 07/01/20 06:01 HDL Cholesterol 61 mg/dL (40-59) H 07/01/20 06:01 Cholesterol/HDL Ratio 2.24 % 07/01/20 06:01 Procalcitonin 0.18 ng/mL (<0.15) 07/14/20 04:55 Arterial Blood Glucose 131 mg/dL (65-95) H 07/18/20 04:24 Arterial Blood Ionized Calcium 5.1 mg/dL (4.6-5.3) 07/18/20 04:24 Urine Color Yellow (Yellow) 06/06/20 04:00 Urine Turbidity Cloudy (Clear) 06/06/20 04:00 Urine pH 5.0 (5.0-7.0) 06/06/20 04:00 Ur Specific [place] 1.012 (1.003-1.030) 06/06/20 04:00 Urine Protein 100 mg/dl mg/dL (Negative) 06/06/20 04:00 Urine Glucose (UA) 50 mg/dL (Negative) 06/06/20 04:00 Urine Ketones Neg mg/dL (Negative) 06/06/20 04:00 Urine Blood Sm (Negative) 06/06/20 04:00 Urine Nitrite Neg (Negative) 06/06/20 04:00 Urine Bilirubin Neg (Negative) 06/06/20 04:00 Urine Urobilinogen < 2.0 mg/dL (<2.0) 06/06/20 04:00 Ur Leukocyte Esterase Neg (Negative) 06/06/20 04:00 Urine WBC (Auto) 15.0 /HPF (0.0-6.0) H 06/06/20 04:00 Urine RBC (Auto) 23.0 /HPF (0.0-6.0) 06/06/20 04:00 U Epithel Cells (Auto) 8.0 /HPF (0-13.0) 06/06/20 04:00 Urine Bacteria (Auto) 2+ /HPF (Negative) 06/06/20 04:00 Amorphous Crystals 1+ 06/06/20 04:00 Hyaline Casts 16 /LPF 06/06/20 04:00 Urine Mucus 2+ /HPF 06/06/20 04:00 Urine Yeast (Budding) 2+ /HPF 06/03/20 Unknown Urine Creatinine 33.3 mg/dL (0.1-20.0) H 07/06/20 13:20 Urine Sodium 21 mmol/L 07/06/20 13:20 Urine Total Protein 196 mg/dL (5-11.8) H 06/06/20 04:00 Nasal Screen MRSA (PCR) Negative (Negative) 06/29/20 08:30 Phenytoin 9.4 ug/mL (10.0-20.0) L 07/24/20 04:29 Coronavirus (PCR) Positive (Negative) A 07/14/20 08:04 Hepatitis A IgM Ab Non-reactive (NonReactive) 07/29/20 13:01 Hep Bs Antigen Non-reactive (Negative) 07/29/20 13:01 Hep B Core IgM Ab Non-reactive (NonReactive) 07/29/20 13:01 Hepatitis C Antibody Non-reactive (NonReactive) 07/29/20 13:01 Blood Type A POSITIVE 07/05/20 02:30 Antibody Screen Negative 07/05/20 02:30 Crossmatch See Detail 07/05/20 02:30 - Diagnostic Impressions Diagnostic Impressions: Echocardiogram Limited Views 05/29/20 13:52 Transthoracic Echocardiogram Indication: Pulm Embolus BP: 169/76 HR: 85 Conclusions *Limited study for RV size post cardiopulmonar arrest. *RV is only slightly dilated, no significant difference from prior echo 05/13/2020. *Global left ventricular systolic function is at the lower limits of normal. *The estimated ejection fraction is 45-50%. *Mild to moderate concentric left ventricular hypertrophy is observed. *The left and right atria are both mild to moderately dilated. Findings Left Ventricle: The left ventricular chamber size is mildly dilated. Mild to moderate concentric left ventricular hypertrophy is observed. Global left ventricular systolic function is at the lower limits of normal. The estimated ejection fraction is 45-50%. Left Atrium: The left atrium is mild to moderately dilated. Right Ventricle: The right ventricle is slightly dilated. Right Atrium: The right atrium is mild to moderately dilated. Aortic Valve: The aortic valve leaflets are moderately thickened. Mitral Valve: There is mitral annular calcification. The mitral valve leaflets are moderately thickened. Tricuspid Valve: The tricuspid valve leaflets are mildly thickened. Pericardium: A trivial pericardial effusion is visualized. NDUM: 05/29/20 1808 Amended Report Transthoracic Echocardiogram Indication: Pulm Embolus BP: 169/76 HR: 85 Conclusions *Limited study for RV size post cardiopulmonary arrest. *RV is only slightly dilated, no significant difference from prior echo 05/13/2020. *Global left ventricular systolic function is at the lower limits of normal. *The estimated ejection fraction is 45-50%. *Mild to moderate concentric left ventricular hypertrophy is observed. *The left and right atria are both mild to moderately dilated. Findings Left Ventricle: The left ventricular chamber size is mildly dilated. Mild to moderate concentric left ventricular hypertrophy is observed. Global left ventricular systolic function is at the lower limits of normal. The estimated ejection fraction is 45-50%. Left Atrium: The left atrium is mild to moderately dilated. Right Ventricle: The right ventricle is slightly dilated. Right Atrium: The right atrium is mild to moderately dilated. Aortic Valve: The aortic valve leaflets are moderately thickened. Mitral Valve: There is mitral annular calcification. The mitral valve leaflets are moderately thickened. Tricuspid Valve: The tricuspid valve leaflets are mildly thickened. Pericardium: A trivial pericardial effusion is visualized. Helm/IV: Voiding Method Indwelling Catheter IV Catheter Type [Left Forearm INT / Saline Lock ] IV Catheter Type [Left Wrist] INT / Saline Lock IV Catheter Type [Left Upper Peripheral IV arm] IV Catheter Type [Right CVL Internal Jugular] IV Catheter Type [Right Hand] INT / Saline Lock IV Catheter Type [Right Wrist] Not found on patient IV Catheter Type [Left Hand] INT / Saline Lock IV Catheter Type [Left INT / Saline Lock Antecubital] IV Catheter Type [Right Peripheral IV Forearm] IV Catheter Type [Left Leg] Intra-osseous Active Medications - Current Medications Current Medications: Generic Name Dose Route Start Last Admin Trade Name Freq PRN Reason Stop Dose Admin Acetaminophen 650 mg 06/09/20 10:57 06/29/20 21:18 Tylenol FEEDTUBE 650 mg Q6H PRN Administration Fever >101 Amlodipine Besylate 10 mg 06/02/20 11:00 07/31/20 10:41 Amlodipine PO 10 mg DAILY NELSON Administration Lipase/Protease/Amylase 1 each 05/29/20 13:39 07/07/20 10:[address] 10,500 Unit FEEDTUBE 1 each PRN PRN Administration For Clogged Feeding Tube Carvedilol 25 mg 07/20/20 11:00 07/31/20 22:10 Coreg PO Not Given Q12HR NELSON Clonidine HCl 0.1 mg 07/26/20 15:00 08/01/20 07:16 Catapres PO Not Given Q8H [facility] Epoetin Javon 10,000 unit 07/29/20 11:29 Procrit IV SCOTTY PRN hemodialysis Glycopyrrolate 2 mg 06/09/20 14:00 07/31/20 22:03 Glycopyrrolate PO 2 mg TID NELSON Administration Heparin Sodium (Porcine) 5,000 unit 06/30/20 14:00 08/01/20 05:51 Heparin SUB-Q 5,000 unit Q8HR NELSON Administration Heparin Sodium (Porcine) 5,000 unit 07/29/20 11:29 Heparin IV SCOTTY PRN hemodialysis Hydralazine HCl 100 mg 07/14/20 14:00 07/31/20 22:03 Apresoline PO 100 mg TID NELSON Administration Hydrophilic Ointment 1 applic 05/28/20 13:49 Vaseline Lip Therapy TP Q2HR PRN Dry Lips Norepinephrine 4 mg in 250 mls @ 7.5 mls/hr 07/23/20 20:00 07/24/20 07:15 Levophed Drip 4 Mg/Ns 250 Ml IV 0 mcg/min TITR NELSON 0 mls/hr Titration Protocol 2 MCG/MIN Dopamine HCl/Dextrose 800 mg in 250 mls @ 4.613 mls/hr 07/24/20 11:30 Intropin Drip 800 Mg/D5w 250 Ml IV TITR NELSON Protocol 2 MCG/KG/MIN Sodium Chloride 100 mls @ 999 mls/hr 07/29/20 11:29 Nacl 0.9% IV SCOTTY PRN Hypotension Insulin Glargine 10 units 06/08/20 22:00 07/31/20 21:56 Lantus SUB-Q 10 units QHS [facility] Administration Insulin Human Lispro 0 unit 05/29/20 18:00 08/01/20 00:41 Humalog SUB-Q Not Given Q6H [facility] Protocol Labetalol HCl 20 mg 06/03/20 09:00 07/31/20 12:14 Labetalol IV 20 mg Q4H PRN Administration HYPERTENSION Lansoprazole 30 mg 06/05/20 22:00 07/31/20 22:09 Prevacid Solutab FEEDTUBE 30 mg BID NELSON Administration Levetiracetam 1,000 mg 07/21/20 22:00 08/01/20 02:12 Keppra PO 1,000 mg BID NELSON Administration Minoxidil 5 mg 07/21/20 10:00 07/31/20 22:02 Loniten PO 5 mg BID NELSON Administration Multi-Ingred Cream/Lotion/Oil/Oint 1 applic 05/28/20 13:49 Artificial Tears Ophth Oint OU Q4HR PRN Dry Eye(s) Ondansetron HCl 4 mg 06/02/20 09:00 06/09/20 16:48 Zofran IV 4 mg Q8H PRN Administration Nausea And Vomiting Phenytoin 225 mg 07/29/20 22:00 07/31/20 22:00 Dilantin FEEDTUBE 225 mg BID NELSON Administration Senna 17.6 mg 06/03/20 10:00 07/31/20 21:42 Senokot FEEDTUBE Not Given BID NELSON Simple Syrup 15 ml 05/29/20 13:39 Simple Syrup FEEDTUBE PRN PRN Hypoglycemia Simple Syrup 30 ml 05/29/20 13:39 Simple Syrup FEEDTUBE PRN PRN Hypoglycemia Sodium Bicarbonate 325 mg 05/29/20 13:39 07/07/20 10:36 Sodium Bicarbonate FEEDTUBE 325 mg PRN PRN Administration For Clogged Feeding Tube Sodium Chloride 10 ml 05/28/20 22:00 07/31/20 22:04 Sodium Chloride Flush Syringe 10 Ml IV 10 ml BID NELSON Administration Sodium Chloride 10 ml 05/28/20 19:08 06/16/20 17:50 Sodium Chloride Flush Syringe 10 Ml IV 10 ml PRN PRN Administration LINE FLUSH Sodium Polystyrene Sulfonate 30 gm 08/01/20 08:34 Kionex PO 08/01/20 08:35 ONCE ONE Nutrition/Malnutrition Assess - Dietary Evaluation Nutrition/Malnutrition Findings: Nutrition Notes Start: 05/29/20 11:45 Freq: Status: Active Protocol: Document 07/27/20 08:59 LP (Rec: 07/27/20 09:05 LP [id number]) Nutrition Notes Initial or Follow up Reassessment Current Diagnosis Acute Kidney Injury,Diabetes, Heart Failure,Respiratory Failure Other Pertinent Diagnosis COVID-19 (+), Pulmonary edema, dysphagia Current Diet Nepro at 40 ml/hr Labs/Tests Na 135 K 3.5 BUN 103 Cr 2.6 BG 113 Pertinent Medications Reviewed Height 5 ft 6 in Weight 123 kg [place] Body Weight (kg) 59.09 BMI 43.7 Weight Status Morbidly Obese Subjective/Other Information Pt continues on vent. Pt tolerating TF at goal rate. Pt already on low K TF. Percent of energy/protein needs met: 100%/80% Protein calculated based on 0. 8g/kg ABW Burn Absent Trauma Absent Current % PO Negligible Minimum of two criteria No physical signs of malnutrition Fluid Accumulation Mild (non-severe) #1 Nutrition Diagnosis Inadequate oral intake Diagnosis Progress(for reassessment Continues documentation) Is patient on ventilator? Yes Is Patient Ambulatory and/or Out of Bed No REE-([place]-confined to bed) 2172.576 Kcal/Kg value to use for calculation 14 Approximate Energy Requirements Using 1722 kcal/Kg Calculation Used for Recommendations Kcal/kg Additional Notes Protein needs up to 148g (up to 2.5g/kg IBW) Fluid needs 1ml/kcal Nutrition Intervention Change Diet Order: Continue Nutrition Support: Nepro at 40ml/hr Flush 150ml q4h Kcal 1,728 Protein (gm) 78 Fluid (mL) 697 Goal #1 TF tolerance Goal #2 Meet at least 75% of kcal and protein needs Anticipated Discharge Needs: Unable to determine at this time Follow-Up By: 08/03/20 Additional Comments Follow for stable TF
[2020-08-01] MEDS: hydrALAZINE 100 MG TAB PO SCH ×3 (08:54→19:53)
[2020-08-01] MEDS: GLYCOPYRROLATE 2 MG TAB PO SCH ×3 (08:54→19:53)
[2020-08-01] MEDS: MINOXIDIL 2.5 MG TAB PO SCH ×2 (09:04→23:56)
[2020-08-01] MEDS: LANSOPRAZOLE 30 MG SOLUTAB FEEDTUBE SCH ×2 (09:05→23:56)
[2020-08-01] MEDS: amLODIPine 10 MG TAB PO SCH (09:05)
[2020-08-01] MEDS: PHENYTOIN 100 MG/4 ML ORAL.LIQD FEEDTUBE SCH (09:05)
[2020-08-01] MEDS: carvediloL 25 MG TAB PO SCH ×2 (09:23→23:53)
[2020-08-01] MEDS: SENNOSIDES ORAL LIQD 8.8 MG/5 ML ORAL LIQD FEEDTUBE SCH (09:24)
[2020-08-01] MEDS ORDERED: hydrALAZINE 20 MG/1 ML INJ IV PRN ×2 (11:27→11:36)
--- NOTE | 2020-08-01 11:59 | Progress Note ---
Assessment and Plan Acute hypoxemic respiratory failure on MVS Coronavirus-19 infection. Bilateral pulmonary infiltrates, bilateral pneumonia plus likely element of Pulmonary edema. Bilateral pulmonary edema. Bilateral pleural effusions. History of congestive heart failure. Morbid obesity. History of pulmonary hypertension. History of hypertension. Diabetes. Obesity hypoventilation syndrome. Elevated serum inflammatory markers to include D-dimers and LDH levels. Hyperkalemia at presentation. Metabolic acidosis. Oropharyngeal dysphagia. (AMS remains rate limiting factor to safe extubation; she will need a tracheo stomy) - discussed at length with all four children and they want top proceed with dialysis / aggressive care as they believe that is what their mother would want - nephrology reconsulted - begin vasopressors if needed to keep MASP > 65 mmHg / support dialysis - no new issues otherwise, continue care as below; - prn CXR's and ABG's at this point - repeat EEG next per neurology rec's - AED's per neurology ([facility] [employer] [facility]) - surgery evaluation ongoing for trach +/- PEG (await negative COVID PCR result) - continue Modafinil re: lethargy / somnolence - continue daytime PSV trials as tolerated - Daily SAT and SBT assessment as tolerated - continue to wean supplemental oxygen for target O2 sat's > 90% acutely - VAP bundle addressed - continue lung protective strategies - continue bronchodilators with pulmonary hygiene per RT - wean per pulmonary driven protocols otherwise - continue accuchecks resumed with glycemic control per SSI (While critically ill target blood glucose of 140-180 mg/dL; avoid hypoglycemia) - sedation prn for target RASS 0 to -1 - continue to avoid benzodiazepine's, reduce the possibility of delirium - AB's per ID rec's (following clinically of AB's at this time) - continue enteral nutrition at goal rate as tolerated - AED's per neurology - prn analgesia per CPOT score - Maintenance of sleep-wake cycle, avoid delirium - continue enteral nutritional support at goal rate as tolerated - G.I. & VTE prophylaxis with heparin & famotidine - PT/OT/ROM exercises - continue mobility protocols for pressure ulcer prophylaxis - Monitor hemodynamics closely - continue other care per attending / other consultants - discharge planning ongoing concurrently (LTAC evaluation is appropriate) .... Re-evaluate in am & prn; will continue aggressive care until clear family wants to decelerate CONDITION: CRITICAL PROGNOSIS: GUARDED CODE STATUS: FULL CODE The high probability of a clinically significant, sudden or life-threatening deterioration of the [respiratory, cardiovascular, GI & neurologic] system(s) required my full and direct attention, intervention and personal management. The aggregate critical care time was [45] minutes without overlap. Time includes spe nt on; [x] Data Review and interpretation [x] Patient assessment and monitoring of vital signs [x] Documentation [x] Medication orders and management Subjective Date of service: 08/01/20 Principal diagnosis: Ac hypoxemic resp failure; COVID-19; pneumonia; CHF; Pulm HTN; OHS; DM II Interval history: Patient is seen today for: Ac hypoxemic resp failure; Coronavirus-19 infection; pneumonia; Pulmonary edema; Bilateral pleural effusions; CHF; Morbid obesity; pulmonary hypertension; OHS; DM II Seen and examined at bedside; 24hour events reviewed; nursing and respiratory care staff consulted; no adverse overnight events reported to me; resting peacefully in bed; remains on MVS; AMS is persistent; secretions moderate; afebrile; no clinical seizures Objective Vital Signs - 12hr 08/01/20 08/01/20 08/01/20 00:01 00:20 00:27 Temperature Pulse Rate 57 L 58 L Pulse Rate [ 55 L From Monitor] Respiratory 18 18 Rate Blood Pressure 160/49 160/49 O2 Sat by Pulse 98 98 98 Oximetry 08/01/20 08/01/20 08/01/20 01:01 02:01 02:20 Temperature Pulse Rate 56 L 57 L Pulse Rate [ 55 L From Monitor] Respiratory 13 16 18 Rate Blood Pressure 150/52 155/50 O2 Sat by Pulse 98 98 98 Oximetry 08/01/20 08/01/20 08/01/20 03:01 03:25 04:01 Temperature 98.8 F Pulse Rate 54 L 56 L Pulse Rate [ From Monitor] Respiratory 13 11 L Rate Blood Pressure 151/47 153/53 O2 Sat by Pulse 97 97 Oximetry 08/01/20 08/01/20 08/01/20 04:21 05:01 05:23 Temperature Pulse Rate 57 L 57 L 57 L Pulse Rate [ 55 L From Monitor] Respiratory 14 18 Rate Blood Pressure 153/53 157/52 O2 Sat by Pulse 98 98 98 Oximetry 08/01/20 08/01/20 08/01/20 06:01 07:01 07:16 Temperature Pulse Rate 57 L 57 L 55 L Pulse Rate [ From Monitor] Respiratory 12 19 Rate Blood Pressure 161/61 162/62 162/62 O2 Sat by Pulse 98 98 Oximetry 08/01/20 08/01/20 08/01/20 07:23 08:00 08:01 Temperature 98.4 F Pulse Rate 57 L 50 L 55 L Pulse Rate [ 55 L From Monitor] Respiratory 13 13 Rate Blood Pressure 162/62 163/62 O2 Sat by Pulse 98 98 98 Oximetry 08/01/20 08/01/20 08/01/20 09:01 09:05 09:23 Temperature Pulse Rate 57 L 58 L 54 L Pulse Rate [ From Monitor] Respiratory 13 Rate Blood Pressure 160/46 160/46 160/45 O2 Sat by Pulse 98 Oximetry 08/01/20 08/01/20 08/01/20 10:01 11:00 11:28 Temperature Pulse Rate 66 65 55 L Pulse Rate [ From Monitor] Respiratory 12 14 Rate Blood Pressure 171/48 156/47 156/47 O2 Sat by Pulse 98 97 98 Oximetry Constitutional: appears uncomfortable, other (elderly looking female with mildly increased resp effort at rest) Eyes: non-icteric ENT: oropharynx dry, other (ETT 23-24 cm AYAN) Neck: supple, no lymphadenopathy, no JVD Effort: mildly labored Ascultation: Bilateral: diminished breath sounds, rales Percussion: Bilateral: not dull Cardiovascular: regular rate and rhythm, other (S1,S2) Gastrointestinal: normoactive bowel sounds, soft, non-tender, non-distended Integumentary: normal Extremities: no cyanosis, pink and warm, pulses normal, no ischemia or petechiae, edema (trace) Neurologic: pupils equal and round, unable to assess, other (lethargic to obtunded) Psychiatric: other (unable to assess re: AMS) CBC and BMP: 07/29/20 13:01 08/01/20 04:43 ABG, PT/INR, D-dimer: ABG ABG pH 7.382 (7.320-7.450) 07/18/20 04:24 POC ABG pCO2 44.1 mmHg (32.0-48.0) 07/18/20 04:24 ABG pCO2 47.0 mm Hg 07/05/20 13:05 POC ABG pO2 86.8 mmHg (83-108) 07/18/20 04:24 ABG pO2 78.3 mm Hg (80.0-90.0) L 07/05/20 13:05 POC ABG HCO3 25.6 07/18/20 04:24 ABG O2 Saturation 96.1 % (95.0-99.0) 07/05/20 13:05 PT/INR, D-dimer PT 14.2 Sec. (12.2-14.9) 05/29/20 15:10 INR 1.08 (0.87-1.13) 05/29/20 15:10 D-Dimer 2310.15 ng/mlDDU (0-234) H 06/29/20 14:45 Abnormal lab findings: Abnormal Labs 05/28/20 05/28/20 05/28/20 13:29 13:47 13:47 WBC RBC Hgb Hct MCHC RDW 15.3 H Lymph % (Auto) [place] % (Auto) Eos % (Auto) Lymph # [place] # Lymph # (Auto) [place] # (Auto) Eos # (Auto) Seg Neutrophils % Seg Neuts % (Manual) Lymphocytes % (Manual) Seg Neutrophils # Seg Neutrophils # Man Lymphocytes # (Manual) Monocytes % (Manual) Eosinophils % (Manual) Monocytes # (Manual) Eosinophils # (Manual) D-Dimer Heparin Anti-Xa Level ABG pH POC ABG pCO2 POC ABG pO2 ABG pO2 ABG HCO3 ABG O2 Saturation ABG Base Excess ABG Hemoglobin ABG Oxyhemoglobin VBG pH ABG Sodium ABG Potassium ABG Glucose Oxyhemoglobin Sodium Potassium 6.6 H* Chloride 109.2 H Carbon Dioxide 17 L BUN 29 H Creatinine 1.3 H Glucose 265 H POC Glucose 248 H Lactic Acid Calcium 8.1 L Ferritin AST 63 H Alkaline Phosphatase Magnesium Lactate Dehydrogenase Total Creatine Kinase 301 H CK-MB (CK-2) 4.3 H C-Reactive Protein Total Protein 5.4 L Albumin 2.6 L Troponin T HDL Cholesterol Arterial Blood Glucose Urine WBC (Auto) Urine Creatinine Urine Total Protein Phenytoin Coronavirus (PCR) Crossmatch 05/28/20 05/28/20 05/28/20 13:47 13:47 14:46 WBC RBC Hgb Hct MCHC RDW Lymph % (Auto) [place] % (Auto) Eos % (Auto) Lymph # [place] # Lymph # (Auto) [place] # (Auto) Eos # (Auto) Seg Neutrophils % Seg Neuts % (Manual) Lymphocytes % (Manual) Seg Neutrophils # Seg Neutrophils # Man Lymphocytes # (Manual) Monocytes % (Manual) Eosinophils % (Manual) Monocytes # (Manual) Eosinophils # (Manual) D-Dimer Heparin Anti-Xa Level ABG pH POC ABG pCO2 POC ABG pO2 ABG pO2 ABG HCO3 ABG O2 Saturation ABG Base Excess ABG Hemoglobin ABG Oxyhemoglobin VBG pH 7.152 L* ABG Sodium ABG Potassium ABG Glucose Oxyhemoglobin Sodium Potassium 7.2 H* Chloride Carbon Dioxide BUN Creatinine Glucose POC Glucose Lactic Acid 3.40 H* Calcium Ferritin AST Alkaline Phosphatase Magnesium Lactate Dehydrogenase Total Creatine Kinase CK-MB (CK-2) C-Reactive Protein Total Protein Albumin Troponin T HDL Cholesterol Arterial Blood Glucose Urine WBC (Auto) Urine Creatinine Urine Total Protein Phenytoin Coronavirus (PCR) Crossmatch 05/28/20 05/28/20 05/28/20 15:33 15:33 15:51 WBC RBC Hgb Hct MCHC RDW Lymph % (Auto) [place] % (Auto) Eos % (Auto) Lymph # [place] # Lymph # (Auto) [place] # (Auto) Eos # (Auto) Seg Neutrophils % Seg Neuts % (Manual) Lymphocytes % (Manual) Seg Neutrophils # Seg Neutrophils # Man Lymphocytes # (Manual) Monocytes % (Manual) Eosinophils % (Manual) Monocytes # (Manual) Eosinophils # (Manual) D-Dimer 8780.43 H Heparin Anti-Xa Level ABG pH 7.284 L POC ABG pCO2 POC ABG pO2 ABG pO2 273.0 H ABG HCO3 ABG O2 Saturation 99.4 H ABG Base Excess -6.1 L ABG Hemoglobin 17.2 H ABG Oxyhemoglobin VBG pH ABG Sodium ABG Potassium ABG Glucose Oxyhemoglobin Sodium Potassium Chloride Carbon Dioxide BUN Creatinine Glucose 152 H POC Glucose Lactic Acid Calcium Ferritin AST Alkaline Phosphatase Magnesium Lactate Dehydrogenase 365 H Total Creatine Kinase CK-MB (CK-2) C-Reactive Protein Total Protein Albumin Troponin T HDL Cholesterol Arterial Blood Glucose Urine WBC (Auto) Urine Creatinine Urine Total Protein Phenytoin Coronavirus (PCR) Crossmatch 05/28/20 05/28/20 05/28/20 16:30 20:41 23:20 WBC RBC Hgb Hct MCHC RDW Lymph % (Auto) [place] % (Auto) Eos % (Auto) Lymph # [place] # Lymph # (Auto) [place] # (Auto) Eos # (Auto) Seg Neutrophils % Seg Neuts % (Manual) Lymphocytes % (Manual) Seg Neutrophils # Seg Neutrophils # Man Lymphocytes # (Manual) Monocytes % (Manual) Eosinophils % (Manual) Monocytes # (Manual) Eosinophils # (Manual) D-Dimer Heparin Anti-Xa Level ABG pH POC ABG pCO2 POC ABG pO2 ABG pO2 ABG HCO3 ABG O2 Saturation ABG Base Excess ABG Hemoglobin ABG Oxyhemoglobin VBG pH ABG Sodium ABG Potassium ABG Glucose Oxyhemoglobin Sodium Potassium Chloride Carbon Dioxide BUN Creatinine Glucose POC Glucose 225 H 224 H Lactic Acid Calcium Ferritin AST Alkaline Phosphatase Magnesium Lactate Dehydrogenase Total Creatine Kinase CK-MB (CK-2) C-Reactive Protein Total Protein Albumin Troponin T HDL Cholesterol Arterial Blood Glucose Urine WBC (Auto) 17.0 H Urine Creatinine Urine Total Protein Phenytoin Coronavirus (PCR) Crossmatch 05/28/20 05/29/20 05/29/20 Unknown 04:35 04:43 WBC RBC 3.48 L Hgb 9.8 L Hct 29.4 L MCHC RDW 16.0 H Lymph % (Auto) 7.4 L [place] % (Auto) Eos % (Auto) Lymph # 0.7 L [place] # Lymph # (Auto) [place] # (Auto) Eos # (Auto) Seg Neutrophils % 89.1 H Seg Neuts % (Manual) Lymphocytes % (Manual) Seg Neutrophils # 8.1 H Seg Neutrophils # Man Lymphocytes # (Manual) Monocytes % (Manual) Eosinophils % (Manual) Monocytes # (Manual) Eosinophils # (Manual) D-Dimer Heparin Anti-Xa Level ABG pH POC ABG pCO2 POC ABG pO2 ABG pO2 ABG HCO3 19.3 L ABG O2 Saturation ABG Base Excess -4.5 L ABG Hemoglobin 9.7 L ABG Oxyhemoglobin VBG pH ABG Sodium ABG Potassium ABG Glucose Oxyhemoglobin Sodium Potassium Chloride Carbon Dioxide BUN Creatinine Glucose POC Glucose Lactic Acid Calcium Ferritin AST Alkaline Phosphatase Magnesium Lactate Dehydrogenase Total Creatine Kinase CK-MB (CK-2) C-Reactive Protein Total Protein Albumin Troponin T HDL Cholesterol Arterial Blood Glucose Urine WBC (Auto) Urine Creatinine Urine Total Protein Phenytoin Coronavirus (PCR) Positive A Crossmatch 05/29/20 05/29/20 05/29/20 04:43 15:10 17:17 WBC RBC Hgb 9.3 L Hct 28.7 L MCHC RDW Lymph % (Auto) [place] % (Auto) Eos % (Auto) Lymph # [place] # Lymph # (Auto) [place] # (Auto) Eos # (Auto) Seg Neutrophils % Seg Neuts % (Manual) Lymphocytes % (Manual) Seg Neutrophils # Seg Neutrophils # Man Lymphocytes # (Manual) Monocytes % (Manual) Eosinophils % (Manual) Monocytes # (Manual) Eosinophils # (Manual) D-Dimer Heparin Anti-Xa Level ABG pH POC ABG pCO2 POC ABG pO2 ABG pO2 ABG HCO3 ABG O2 Saturation ABG Base Excess ABG Hemoglobin ABG Oxyhemoglobin VBG pH ABG Sodium ABG Potassium ABG Glucose Oxyhemoglobin Sodium Potassium Chloride 110.2 H Carbon Dioxide 18 L BUN 32 H Creatinine 1.4 H Glucose 180 H POC Glucose 147 H Lactic Acid Calcium Ferritin AST Alkaline Phosphatase Magnesium Lactate Dehydrogenase Total Creatine Kinase CK-MB (CK-2) C-Reactive Protein Total Protein Albumin Troponin T HDL Cholesterol Arterial Blood Glucose Urine WBC (Auto) Urine Creatinine Urine Total Protein Phenytoin Coronavirus (PCR) Crossmatch 05/30/20 05/30/20 05/30/20 00:08 00:12 04:15 WBC RBC Hgb Hct MCHC RDW Lymph % (Auto) [place] % (Auto) Eos % (Auto) Lymph # [place] # Lymph # (Auto) [place] # (Auto) Eos # (Auto) Seg Neutrophils % Seg Neuts % (Manual) Lymphocytes % (Manual) Seg Neutrophils # Seg Neutrophils # Man Lymphocytes # (Manual) Monocytes % (Manual) Eosinophils % (Manual) Monocytes # (Manual) Eosinophils # (Manual) D-Dimer Heparin Anti-Xa Level 0.71 H ABG pH 7.460 H POC ABG pCO2 POC ABG pO2 ABG pO2 106.0 H ABG HCO3 18.9 L ABG O2 Saturation ABG Base Excess -4.4 L ABG Hemoglobin 6.8 L ABG Oxyhemoglobin VBG pH ABG Sodium ABG Potassium ABG Glucose Oxyhemoglobin Sodium Potassium Chloride Carbon Dioxide BUN Creatinine Glucose POC Glucose 195 H Lactic Acid Calcium Ferritin AST Alkaline Phosphatase Magnesium Lactate Dehydrogenase Total Creatine Kinase CK-MB (CK-2) C-Reactive Protein Total Protein Albumin Troponin T HDL Cholesterol Arterial Blood Glucose Urine WBC (Auto) Urine Creatinine Urine Total Protein Phenytoin Coronavirus (PCR) Crossmatch 05/30/20 05/30/20 05/30/20 06:07 08:37 12:33 WBC RBC Hgb Hct MCHC RDW Lymph % (Auto) [place] % (Auto) Eos % (Auto) Lymph # [place] # Lymph # (Auto) [place] # (Auto) Eos # (Auto) Seg Neutrophils % Seg Neuts % (Manual) Lymphocytes % (Manual) Seg Neutrophils # Seg Neutrophils # Man Lymphocytes # (Manual) Monocytes % (Manual) Eosinophils % (Manual) Monocytes # (Manual) Eosinophils # (Manual) D-Dimer Heparin Anti-Xa Level 0.85 H ABG pH POC ABG pCO2 POC ABG pO2 ABG pO2 ABG HCO3 ABG O2 Saturation ABG Base Excess ABG Hemoglobin ABG Oxyhemoglobin VBG pH ABG Sodium ABG Potassium ABG Glucose Oxyhemoglobin Sodium Potassium Chloride Carbon Dioxide BUN Creatinine Glucose POC Glucose 182 H 187 H Lactic Acid Calcium Ferritin AST Alkaline Phosphatase Magnesium Lactate Dehydrogenase Total Creatine Kinase CK-MB (CK-2) C-Reactive Protein Total Protein Albumin Troponin T HDL Cholesterol Arterial Blood Glucose Urine WBC (Auto) Urine Creatinine Urine Total Protein Phenytoin Coronavirus (PCR) Crossmatch 05/30/20 05/30/20 05/30/20 15:58 17:57 23:36 WBC RBC Hgb Hct MCHC RDW Lymph % (Auto) [place] % (Auto) Eos % (Auto) Lymph # [place] # Lymph # (Auto) [place] # (Auto) Eos # (Auto) Seg Neutrophils % Seg Neuts % (Manual) Lymphocytes % (Manual) Seg Neutrophils # Seg Neutrophils # Man Lymphocytes # (Manual) Monocytes % (Manual) Eosinophils % (Manual) Monocytes # (Manual) Eosinophils # (Manual) D-Dimer Heparin Anti-Xa Level 1.03 H ABG pH POC ABG pCO2 POC ABG pO2 ABG pO2 ABG HCO3 ABG O2 Saturation ABG Base Excess ABG Hemoglobin ABG Oxyhemoglobin VBG pH ABG Sodium ABG Potassium ABG Glucose Oxyhemoglobin Sodium Potassium Chloride Carbon Dioxide BUN Creatinine Glucose POC Glucose 208 H 185 H Lactic Acid Calcium Ferritin AST Alkaline Phosphatase Magnesium Lactate Dehydrogenase Total Creatine Kinase CK-MB (CK-2) C-Reactive Protein Total Protein Albumin Troponin T HDL Cholesterol Arterial Blood Glucose Urine WBC (Auto) Urine Creatinine Urine Total Protein Phenytoin Coronavirus (PCR) Crossmatch 05/31/20 05/31/2005/31/20 02:16 03:55 06:16 WBC RBC Hgb 9.2 L Hct 27.5 L MCHC RDW Lymph % (Auto) [place] % (Auto) Eos % (Auto) Lymph # [place] # Lymph # (Auto) [place] # (Auto) Eos # (Auto) Seg Neutrophils % Seg Neuts % (Manual) Lymphocytes % (Manual) Seg Neutrophils # Seg Neutrophils # Man Lymphocytes # (Manual) Monocytes % (Manual) Eosinophils % (Manual) Monocytes # (Manual) Eosinophils # (Manual) D-Dimer Heparin Anti-Xa Level ABG pH POC ABG pCO2 POC ABG pO2 ABG pO2 94.7 H ABG HCO3 18.6 L ABG O2 Saturation ABG Base Excess -5.5 L ABG Hemoglobin 7.9 L ABG Oxyhemoglobin VBG pH ABG Sodium ABG Potassium ABG Glucose Oxyhemoglobin Sodium Potassium Chloride Carbon Dioxide BUN Creatinine Glucose POC Glucose 160 H Lactic Acid Calcium Ferritin AST Alkaline Phosphatase Magnesium Lactate Dehydrogenase Total Creatine Kinase CK-MB (CK-2) C-Reactive Protein Total Protein Albumin Troponin T HDL Cholesterol Arterial Blood Glucose Urine WBC (Auto) Urine Creatinine Urine Total Protein Phenytoin Coronavirus (PCR) Crossmatch 05/31/20 05/31/20 05/31/20 12:20 13:03 18:13 WBC RBC Hgb Hct MCHC RDW Lymph % (Auto) [place] % (Auto) Eos % (Auto) Lymph # [place] # Lymph # (Auto) [place] # (Auto) Eos # (Auto) Seg Neutrophils % Seg Neuts % (Manual) Lymphocytes % (Manual) Seg Neutrophils # Seg Neutrophils # Man Lymphocytes # (Manual) Monocytes % (Manual) Eosinophils % (Manual) Monocytes # (Manual) Eosinophils # (Manual) D-Dimer Heparin Anti-Xa Level ABG pH POC ABG pCO2 POC ABG pO2 ABG pO2 ABG HCO3 ABG O2 Saturation ABG Base Excess ABG Hemoglobin ABG Oxyhemoglobin VBG pH ABG Sodium ABG Potassium ABG Glucose Oxyhemoglobin Sodium Potassium Chloride Carbon Dioxide 18 L BUN 48 H Creatinine 1.6 H Glucose 115 H POC Glucose 128 H 159 H Lactic Acid Calcium 8.3 L Ferritin AST Alkaline Phosphatase Magnesium Lactate Dehydrogenase Total Creatine Kinase CK-MB (CK-2) C-Reactive Protein Total Protein 5.4 L Albumin 2.4 L Troponin T HDL Cholesterol Arterial Blood Glucose Urine WBC (Auto) Urine Creatinine Urine Total Protein Phenytoin Coronavirus (PCR) Crossmatch 05/31/20 06/01/20 06/01/20 23:51 04:00 05:48 WBC RBC Hgb Hct MCHC RDW Lymph % (Auto) [place] % (Auto) Eos % (Auto) Lymph # [place] # Lymph # (Auto) [place] # (Auto) Eos # (Auto) Seg Neutrophils % Seg Neuts % (Manual) Lymphocytes % (Manual) Seg Neutrophils # Seg Neutrophils # Man Lymphocytes # (Manual) Monocytes % (Manual) Eosinophils % (Manual) Monocytes # (Manual) Eosinophils # (Manual) D-Dimer Heparin Anti-Xa Level ABG pH POC ABG pCO2 POC ABG pO2 ABG pO2 109.8 H ABG HCO3 18.8 L ABG O2 Saturation ABG Base Excess -5.9 L ABG Hemoglobin 7.8 L ABG Oxyhemoglobin VBG pH ABG Sodium ABG Potassium ABG Glucose Oxyhemoglobin Sodium Potassium Chloride Carbon Dioxide BUN Creatinine Glucose POC Glucose 171 H 133 H Lactic Acid Calcium Ferritin AST Alkaline Phosphatase Magnesium Lactate Dehydrogenase Total Creatine Kinase CK-MB (CK-2) C-Reactive Protein Total Protein Albumin Troponin T HDL Cholesterol Arterial Blood Glucose Urine WBC (Auto) Urine Creatinine Urine Total Protein Phenytoin Coronavirus (PCR) Crossmatch 06/01/20 06/01/20 06/02/20 12:28 17:29 00:08 WBC RBC Hgb Hct MCHC RDW Lymph % (Auto) [place] % (Auto) Eos % (Auto) Lymph # [place] # Lymph # (Auto) [place] # (Auto) Eos # (Auto) Seg Neutrophils % Seg Neuts % (Manual) Lymphocytes % (Manual) Seg Neutrophils # Seg Neutrophils # Man Lymphocytes # (Manual) Monocytes % (Manual) Eosinophils % (Manual) Monocytes # (Manual) Eosinophils # (Manual) D-Dimer Heparin Anti-Xa Level ABG pH POC ABG pCO2 POC ABG pO2 ABG pO2 ABG HCO3 ABG O2 Saturation ABG Base Excess ABG Hemoglobin ABG Oxyhemoglobin VBG pH ABG Sodium ABG Potassium ABG Glucose Oxyhemoglobin Sodium Potassium Chloride Carbon Dioxide BUN Creatinine Glucose POC Glucose 199 H 209 H 162 H Lactic Acid Calcium Ferritin AST Alkaline Phosphatase Magnesium Lactate Dehydrogenase Total Creatine Kinase CK-MB (CK-2) C-Reactive Protein Total Protein Albumin Troponin T HDL Cholesterol Arterial Blood Glucose Urine WBC (Auto) Urine Creatinine Urine Total Protein Phenytoin Coronavirus (PCR) Crossmatch 06/02/20 06/02/20 06/02/20 04:20 04:20 04:44 WBC RBC Hgb 10.0 L Hct MCHC RDW Lymph % (Auto) [place] % (Auto) Eos % (Auto) Lymph # [place] # Lymph # (Auto) [place] # (Auto) Eos # (Auto) Seg Neutrophils % Seg Neuts % (Manual) Lymphocytes % (Manual) Seg Neutrophils # Seg Neutrophils # Man Lymphocytes # (Manual) Monocytes % (Manual) Eosinophils % (Manual) Monocytes # (Manual) Eosinophils # (Manual) D-Dimer Heparin Anti-Xa Level 0.10 L ABG pH POC ABG pCO2 POC ABG pO2 ABG pO2 150.6 H ABG HCO3 ABG O2 Saturation ABG Base Excess -4.1 L ABG Hemoglobin 11.8 L ABG Oxyhemoglobin VBG pH ABG Sodium ABG Potassium ABG Glucose Oxyhemoglobin Sodium Potassium Chloride Carbon Dioxide BUN Creatinine Glucose POC Glucose Lactic Acid Calcium Ferritin AST Alkaline Phosphatase Magnesium Lactate Dehydrogenase Total Creatine Kinase CK-MB (CK-2) C-Reactive Protein Total Protein Albumin Troponin T HDL Cholesterol Arterial Blood Glucose Urine WBC (Auto) Urine Creatinine Urine Total Protein Phenytoin Coronavirus (PCR) Crossmatch 06/02/20 06/02/20 06/02/20 05:53 12:04 13:49 WBC RBC Hgb Hct MCHC RDW Lymph % (Auto) [place] % (Auto) Eos % (Auto) Lymph # [place] # Lymph # (Auto) [place] # (Auto) Eos # (Auto) Seg Neutrophils % Seg Neuts % (Manual) Lymphocytes % (Manual) Seg Neutrophils # Seg Neutrophils # Man Lymphocytes # (Manual) Monocytes % (Manual) Eosinophils % (Manual) Monocytes # (Manual) Eosinophils # (Manual) D-Dimer Heparin Anti-Xa Level 0.28 L ABG pH POC ABG pCO2 POC ABG pO2 ABG pO2 ABG HCO3 ABG O2 Saturation ABG Base Excess ABG Hemoglobin ABG Oxyhemoglobin VBG pH ABG Sodium ABG Potassium ABG Glucose Oxyhemoglobin Sodium Potassium Chloride Carbon Dioxide BUN Creatinine Glucose POC Glucose 149 H 220 H Lactic Acid Calcium Ferritin AST Alkaline Phosphatase Magnesium Lactate Dehydrogenase Total Creatine Kinase CK-MB (CK-2) C-Reactive Protein Total Protein Albumin Troponin T HDL Cholesterol Arterial Blood Glucose Urine WBC (Auto) Urine Creatinine Urine Total Protein Phenytoin Coronavirus (PCR) Crossmatch 06/02/20 06/02/20 06/03/20 13:49 18:31 00:42 WBC RBC Hgb Hct MCHC RDW Lymph % (Auto) [place] % (Auto) Eos % (Auto) Lymph # [place] # Lymph # (Auto) [place] # (Auto) Eos # (Auto) Seg Neutrophils % Seg Neuts % (Manual) Lymphocytes % (Manual) Seg Neutrophils # Seg Neutrophils # Man Lymphocytes # (Manual) Monocytes % (Manual) Eosinophils % (Manual) Monocytes # (Manual) Eosinophils # (Manual) D-Dimer 769.68 H Heparin Anti-Xa Level ABG pH POC ABG pCO2 POC ABG pO2 ABG pO2 ABG HCO3 ABG O2 Saturation ABG Base Excess ABG Hemoglobin ABG Oxyhemoglobin VBG pH ABG Sodium ABG Potassium ABG Glucose Oxyhemoglobin Sodium Potassium Chloride Carbon Dioxide BUN Creatinine Glucose POC Glucose 225 H 212 H Lactic Acid Calcium Ferritin AST Alkaline Phosphatase Magnesium Lactate Dehydrogenase Total Creatine Kinase CK-MB (CK-2) C-Reactive Protein Total Protein Albumin Troponin T HDL Cholesterol Arterial Blood Glucose Urine WBC (Auto) Urine Creatinine Urine Total Protein Phenytoin Coronavirus (PCR) Crossmatch 06/03/20 06/03/20 06/03/20 05:16 05:16 05:25 WBC 11.4 H RBC Hgb Hct MCHC RDW 16.4 H Lymph % (Auto) [place] % (Auto) Eos % (Auto) Lymph # [place] # Lymph # (Auto) [place] # (Auto) Eos # (Auto) Seg Neutrophils % Seg Neuts % (Manual) Lymphocytes % (Manual) Seg Neutrophils # Seg Neutrophils # Man Lymphocytes # (Manual) Monocytes % (Manual) Eosinophils % (Manual) Monocytes # (Manual) Eosinophils # (Manual) D-Dimer Heparin Anti-Xa Level ABG pH POC ABG pCO2 POC ABG pO2 ABG pO2 160.9 H ABG HCO3 19.4 L ABG O2 Saturation ABG Base Excess -4.9 L ABG Hemoglobin 7.0 L ABG Oxyhemoglobin VBG pH ABG Sodium ABG Potassium ABG Glucose Oxyhemoglobin Sodium Potassium Chloride Carbon Dioxide 18 L BUN 65 H Creatinine 2.0 H Glucose 175 H POC Glucose Lactic Acid Calcium 8.0 L Ferritin AST Alkaline Phosphatase Magnesium Lactate Dehydrogenase Total Creatine Kinase CK-MB (CK-2) C-Reactive Protein Total Protein 5.5 L Albumin 2.2 L Troponin T HDL Cholesterol Arterial Blood Glucose Urine WBC (Auto) Urine Creatinine Urine Total Protein Phenytoin Coronavirus (PCR) Crossmatch 06/03/20 06/03/20 06/03/20 06:07 11:58 18:24 WBC RBC Hgb Hct MCHC RDW Lymph % (Auto) [place] % (Auto) Eos % (Auto) Lymph # [place] # Lymph # (Auto) [place] # (Auto) Eos # (Auto) Seg Neutrophils % Seg Neuts % (Manual) Lymphocytes % (Manual) Seg Neutrophils # Seg Neutrophils # Man Lymphocytes # (Manual) Monocytes % (Manual) Eosinophils % (Manual) Monocytes # (Manual) Eosinophils # (Manual) D-Dimer Heparin Anti-Xa Level ABG pH POC ABG pCO2 POC ABG pO2 ABG pO2 ABG HCO3 ABG O2 Saturation ABG Base Excess ABG Hemoglobin ABG Oxyhemoglobin VBG pH ABG Sodium ABG Potassium ABG Glucose Oxyhemoglobin Sodium Potassium Chloride Carbon Dioxide BUN Creatinine Glucose POC Glucose 177 H 163 H 211 H Lactic Acid Calcium Ferritin AST Alkaline Phosphatase Magnesium Lactate Dehydrogenase Total Creatine Kinase CK-MB (CK-2) C-Reactive Protein Total Protein Albumin Troponin T HDL Cholesterol Arterial Blood Glucose Urine WBC (Auto) Urine Creatinine Urine Total Protein Phenytoin Coronavirus (PCR) Crossmatch 06/03/20 06/03/20 06/04/20 21:50 Unknown 00:26 WBC RBC Hgb Hct MCHC RDW Lymph % (Auto) [place] % (Auto) Eos % (Auto) Lymph # [place] # Lymph # (Auto) [place] # (Auto) Eos # (Auto) Seg Neutrophils % Seg Neuts % (Manual) Lymphocytes % (Manual) Seg Neutrophils # Seg Neutrophils # Man Lymphocytes # (Manual) Monocytes % (Manual) Eosinophils % (Manual) Monocytes # (Manual) Eosinophils # (Manual) D-Dimer Heparin Anti-Xa Level ABG pH POC ABG pCO2 POC ABG pO2 ABG pO2 ABG HCO3 ABG O2 Saturation ABG Base Excess ABG Hemoglobin ABG Oxyhemoglobin VBG pH ABG Sodium ABG Potassium ABG Glucose Oxyhemoglobin Sodium 135 L Potassium Chloride Carbon Dioxide 18 L BUN Creatinine Glucose POC Glucose 241 H Lactic Acid Calcium Ferritin AST Alkaline Phosphatase Magnesium Lactate Dehydrogenase Total Creatine Kinase CK-MB (CK-2) C-Reactive Protein Total Protein Albumin Troponin T HDL Cholesterol Arterial Blood Glucose Urine WBC (Auto) 11.0 H Urine Creatinine Urine Total Protein Phenytoin Coronavirus (PCR) Crossmatch 06/04/20 06/04/20 06/04/20 03:35 04:19 04:19 WBC RBC 3.15 L Hgb 8.9 L Hct 26.8 L D MCHC RDW 15.9 H Lymph % (Auto) 6.0 L [place] % (Auto) Eos % (Auto) Lymph # 0.6 L [place] # Lymph # (Auto) [place] # (Auto) Eos # (Auto) Seg Neutrophils % 86.6 H Seg Neuts % (Manual) Lymphocytes % (Manual) Seg Neutrophils # 9.1 H Seg Neutrophils # Man Lymphocytes # (Manual) Monocytes % (Manual) Eosinophils % (Manual) Monocytes # (Manual) Eosinophils # (Manual) D-Dimer Heparin Anti-Xa Level ABG pH 7.331 L POC ABG pCO2 POC ABG pO2 ABG pO2 ABG HCO3 ABG O2 Saturation ABG Base Excess -4.7 L ABG Hemoglobin 11.0 L ABG Oxyhemoglobin VBG pH ABG Sodium ABG Potassium ABG Glucose Oxyhemoglobin 93.9 L Sodium 136 L Potassium Chloride Carbon Dioxide 20 L BUN 73 H Creatinine 2.0 H Glucose 192 H POC Glucose Lactic Acid Calcium 8.0 L Ferritin AST Alkaline Phosphatase Magnesium Lactate Dehydrogenase 271 H Total Creatine Kinase CK-MB (CK-2) C-Reactive Protein 2.20 H Total Protein 5.0 L Albumin 2.0 L Troponin T HDL Cholesterol Arterial Blood Glucose Urine WBC (Auto) Urine Creatinine Urine Total Protein Phenytoin Coronavirus (PCR) Crossmatch 06/04/20 06/04/20 06/04/20 04:19 05:51 11:48 WBC RBC Hgb Hct MCHC RDW Lymph % (Auto) [place] % (Auto) Eos % (Auto) Lymph # [place] # Lymph # (Auto) [place] # (Auto) Eos # (Auto) Seg Neutrophils % Seg Neuts % (Manual) Lymphocytes % (Manual) Seg Neutrophils # Seg Neutrophils # Man Lymphocytes # (Manual) Monocytes % (Manual) Eosinophils % (Manual) Monocytes # (Manual) Eosinophils # (Manual) D-Dimer 414.52 H Heparin Anti-Xa Level ABG pH POC ABG pCO2 POC ABG pO2 ABG pO2 ABG HCO3 ABG O2 Saturation ABG Base Excess ABG Hemoglobin ABG Oxyhemoglobin VBG pH ABG Sodium ABG Potassium ABG Glucose Oxyhemoglobin Sodium Potassium Chloride Carbon Dioxide BUN Creatinine Glucose POC Glucose 179 H 213 H Lactic Acid Calcium Ferritin AST Alkaline Phosphatase Magnesium Lactate Dehydrogenase Total Creatine Kinase CK-MB (CK-2) C-Reactive Protein Total Protein Albumin Troponin T HDL Cholesterol Arterial Blood Glucose Urine WBC (Auto) Urine Creatinine Urine Total Protein Phenytoin Coronavirus (PCR) Crossmatch 06/04/20 06/05/20 06/05/20 18:25 00:16 05:00 WBC RBC Hgb Hct MCHC RDW Lymph % (Auto) [place] % (Auto) Eos % (Auto) Lymph # [place] # Lymph # (Auto) [place] # (Auto) Eos # (Auto) Seg Neutrophils % Seg Neuts % (Manual) Lymphocytes % (Manual) Seg Neutrophils # Seg Neutrophils # Man Lymphocytes # (Manual) Monocytes % (Manual) Eosinophils % (Manual) Monocytes # (Manual) Eosinophils # (Manual) D-Dimer Heparin Anti-Xa Level ABG pH 7.286 L POC ABG pCO2 POC ABG pO2 ABG pO2 96.2 H ABG HCO3 ABG O2 Saturation ABG Base Excess -6.3 L ABG Hemoglobin 8.8 L ABG Oxyhemoglobin VBG pH ABG Sodium ABG Potassium ABG Glucose Oxyhemoglobin 94.8 L Sodium Potassium Chloride Carbon Dioxide BUN Creatinine Glucose POC Glucose 238 H 183 H Lactic Acid Calcium Ferritin AST Alkaline Phosphatase Magnesium Lactate Dehydrogenase Total Creatine Kinase CK-MB (CK-2) C-Reactive Protein Total Protein Albumin Troponin T HDL Cholesterol Arterial Blood Glucose Urine WBC (Auto) Urine Creatinine Urine Total Protein Phenytoin Coronavirus (PCR) Crossmatch 06/05/20 06/05/20 06/05/20 05:39 07:25 07:25 WBC RBC 2.97 L Hgb 8.7 L Hct 25.7 L MCHC RDW 16.0 H Lymph % (Auto) 8.8 L [place] % (Auto) 13.3 H Eos % (Auto) Lymph # 0.8 L [place] # 1.3 H Lymph # (Auto) [place] # (Auto) Eos # (Auto) Seg Neutrophils % 77.3 H Seg Neuts % (Manual) Lymphocytes % (Manual) Seg Neutrophils # Seg Neutrophils # Man Lymphocytes # (Manual) Monocytes % (Manual) Eosinophils % (Manual) Monocytes # (Manual) Eosinophils # (Manual) D-Dimer Heparin Anti-Xa Level ABG pH POC ABG pCO2 POC ABG pO2 ABG pO2 ABG HCO3 ABG O2 Saturation ABG Base Excess ABG Hemoglobin ABG Oxyhemoglobin VBG pH ABG Sodium ABG Potassium ABG Glucose Oxyhemoglobin Sodium 133 L Potassium Chloride Carbon Dioxide 17 L BUN 89 H Creatinine 2.8 H Glucose 176 H POC Glucose 149 H Lactic Acid Calcium 7.7 L Ferritin AST Alkaline Phosphatase Magnesium Lactate Dehydrogenase Total Creatine Kinase CK-MB (CK-2) C-Reactive Protein Total Protein 4.2 L Albumin 1.9 L Troponin T HDL Cholesterol Arterial Blood Glucose Urine WBC (Auto) Urine Creatinine Urine Total Protein Phenytoin Coronavirus (PCR) Crossmatch 06/05/20 06/05/20 06/05/20 07:25 12:05 15:41 WBC RBC Hgb Hct MCHC RDW Lymph % (Auto) [place] % (Auto) Eos % (Auto) Lymph # [place] # Lymph # (Auto) [place] # (Auto) Eos # (Auto) Seg Neutrophils % Seg Neuts % (Manual) Lymphocytes % (Manual) Seg Neutrophils # Seg Neutrophils # Man Lymphocytes # (Manual) Monocytes % (Manual) Eosinophils % (Manual) Monocytes # (Manual) Eosinophils # (Manual) D-Dimer Heparin Anti-Xa Level 0.76 H 0.81 H ABG pH POC ABG pCO2 POC ABG pO2 ABG pO2 ABG HCO3 ABG O2 Saturation ABG Base Excess ABG Hemoglobin ABG Oxyhemoglobin VBG pH ABG Sodium ABG Potassium ABG Glucose Oxyhemoglobin Sodium Potassium Chloride Carbon Dioxide BUN Creatinine Glucose POC Glucose 198 H Lactic Acid Calcium Ferritin AST Alkaline Phosphatase Magnesium Lactate Dehydrogenase Total Creatine Kinase CK-MB (CK-2) C-Reactive Protein Total Protein Albumin Troponin T HDL Cholesterol Arterial Blood Glucose Urine WBC (Auto) Urine Creatinine Urine Total Protein Phenytoin Coronavirus (PCR) Crossmatch 06/05/20 06/05/20 06/06/20 18:08 23:25 04:00 WBC RBC Hgb Hct MCHC RDW Lymph % (Auto) [place] % (Auto) Eos % (Auto) Lymph # [place] # Lymph # (Auto) [place] # (Auto) Eos # (Auto) Seg Neutrophils % Seg Neuts % (Manual) Lymphocytes % (Manual) Seg Neutrophils # Seg Neutrophils # Man Lymphocytes # (Manual) Monocytes % (Manual) Eosinophils % (Manual) Monocytes # (Manual) Eosinophils # (Manual) D-Dimer Heparin Anti-Xa Level ABG pH POC ABG pCO2 POC ABG pO2 ABG pO2 ABG HCO3 ABG O2 Saturation ABG Base Excess ABG Hemoglobin ABG Oxyhemoglobin VBG pH ABG Sodium ABG Potassium ABG Glucose Oxyhemoglobin Sodium Potassium Chloride Carbon Dioxide BUN Creatinine Glucose POC Glucose 223 H 169 H Lactic Acid Calcium Ferritin AST Alkaline Phosphatase Magnesium Lactate Dehydrogenase Total Creatine Kinase CK-MB (CK-2) C-Reactive Protein Total Protein Albumin Troponin T HDL Cholesterol Arterial Blood Glucose Urine WBC (Auto) 15.0 H Urine Creatinine Urine Total Protein Phenytoin Coronavirus (PCR) Crossmatch 06/06/20 06/06/20 06/06/20 04:00 05:33 05:38 WBC RBC 2.97 L Hgb 8.7 L Hct 26.8 L MCHC RDW 16.8 H Lymph % (Auto) [place] % (Auto) Eos % (Auto) Lymph # [place] # Lymph # (Auto) [place] # (Auto) Eos # (Auto) Seg Neutrophils % Seg Neuts % (Manual) Lymphocytes % (Manual) Seg Neutrophils # Seg Neutrophils # Man Lymphocytes # (Manual) Monocytes % (Manual) Eosinophils % (Manual) Monocytes # (Manual) Eosinophils # (Manual) D-Dimer Heparin Anti-Xa Level ABG pH POC ABG pCO2 POC ABG pO2 ABG pO2 ABG HCO3 ABG O2 Saturation ABG Base Excess ABG Hemoglobin ABG Oxyhemoglobin VBG pH ABG Sodium ABG Potassium ABG Glucose Oxyhemoglobin Sodium Potassium Chloride Carbon Dioxide BUN Creatinine Glucose POC Glucose 186 H Lactic Acid Calcium Ferritin AST Alkaline Phosphatase Magnesium Lactate Dehydrogenase Total Creatine Kinase CK-MB (CK-2) C-Reactive Protein Total Protein Albumin Troponin T HDL Cholesterol Arterial Blood Glucose Urine WBC (Auto) Urine Creatinine 82.2 H Urine Total Protein 196 H Phenytoin Coronavirus (PCR) Crossmatch 06/06/20 06/06/20 06/06/20 05:38 12:25 17:03 WBC RBC Hgb Hct MCHC RDW Lymph % (Auto) [place] % (Auto) Eos % (Auto) Lymph # [place] # Lymph # (Auto) [place] # (Auto) Eos # (Auto) Seg Neutrophils % Seg Neuts % (Manual) Lymphocytes % (Manual) Seg Neutrophils # Seg Neutrophils # Man Lymphocytes # (Manual) Monocytes % (Manual) Eosinophils % (Manual) Monocytes # (Manual) Eosinophils # (Manual) D-Dimer Heparin Anti-Xa Level ABG pH POC ABG pCO2 POC ABG pO2 ABG pO2 ABG HCO3 ABG O2 Saturation ABG Base Excess ABG Hemoglobin ABG Oxyhemoglobin VBG pH ABG Sodium ABG Potassium ABG Glucose Oxyhemoglobin Sodium 134 L Potassium 5.2 H Chloride Carbon Dioxide 18 L BUN 97 H Creatinine 2.5 H Glucose 193 H POC Glucose 239 H 252 H Lactic Acid Calcium 7.5 L Ferritin AST Alkaline Phosphatase Magnesium Lactate Dehydrogenase Total Creatine Kinase CK-MB (CK-2) C-Reactive Protein Total Protein 4.1 L Albumin 1.9 L Troponin T HDL Cholesterol Arterial Blood Glucose Urine WBC (Auto) Urine Creatinine Urine Total Protein Phenytoin Coronavirus (PCR) Crossmatch 06/07/20 06/07/20 06/07/20 00:16 01:49 04:00 WBC RBC 2.91 L Hgb 8.4 L Hct 25.0 L MCHC RDW 16.1 H Lymph % (Auto) 5.7 L [place] % (Auto) 10.5 H Eos % (Auto) Lymph # 0.6 L [place] # 1.1 H Lymph # (Auto) [place] # (Auto) Eos # (Auto) Seg Neutrophils % 83.6 H Seg Neuts % (Manual) Lymphocytes % (Manual) Seg Neutrophils # 9.1 H Seg Neutrophils # Man Lymphocytes # (Manual) Monocytes % (Manual) Eosinophils % (Manual) Monocytes # (Manual) Eosinophils # (Manual) D-Dimer Heparin Anti-Xa Level 0.26 L ABG pH POC ABG pCO2 POC ABG pO2 ABG pO2 ABG HCO3 ABG O2 Saturation ABG Base Excess ABG Hemoglobin ABG Oxyhemoglobin VBG pH ABG Sodium ABG Potassium ABG Glucose Oxyhemoglobin Sodium Potassium Chloride Carbon Dioxide BUN Creatinine Glucose POC Glucose 173 H Lactic Acid Calcium Ferritin AST Alkaline Phosphatase Magnesium Lactate Dehydrogenase Total Creatine Kinase CK-MB (CK-2) C-Reactive Protein Total Protein Albumin Troponin T HDL Cholesterol Arterial Blood Glucose Urine WBC (Auto) Urine Creatinine Urine Total Protein Phenytoin Coronavirus (PCR) Crossmatch 06/07/20 06/07/20 06/07/20 04:00 04:54 05:51 WBC RBC Hgb Hct MCHC RDW Lymph % (Auto) [place] % (Auto) Eos % (Auto) Lymph # [place] # Lymph # (Auto) [place] # (Auto) Eos # (Auto) Seg Neutrophils % Seg Neuts % (Manual) Lymphocytes % (Manual) Seg Neutrophils # Seg Neutrophils # Man Lymphocytes # (Manual) Monocytes % (Manual) Eosinophils % (Manual) Monocytes # (Manual) Eosinophils # (Manual) D-Dimer Heparin Anti-Xa Level ABG pH 7.317 L POC ABG pCO2 POC ABG pO2 ABG pO2 71.4 L ABG HCO3 ABG O2 Saturation 94.3 L ABG Base Excess -4.8 L ABG Hemoglobin 7.1 L ABG Oxyhemoglobin VBG pH ABG Sodium ABG Potassium ABG Glucose Oxyhemoglobin 92.2 L Sodium 133 L Potassium Chloride Carbon Dioxide 18 L BUN 100 H Creatinine 2.5 H Glucose 158 H POC Glucose 168 H Lactic Acid Calcium 7.6 L Ferritin AST Alkaline Phosphatase Magnesium Lactate Dehydrogenase Total Creatine Kinase CK-MB (CK-2) C-Reactive Protein Total Protein 4.7 L Albumin 2.0 L Troponin T HDL Cholesterol Arterial Blood Glucose Urine WBC (Auto) Urine Creatinine Urine Total Protein Phenytoin Coronavirus (PCR) Crossmatch 06/07/20 06/07/20 06/07/20 12:03 17:17 20:10 WBC RBC Hgb Hct MCHC RDW Lymph % (Auto) [place] % (Auto) Eos % (Auto) Lymph # [place] # Lymph # (Auto) [place] # (Auto) Eos # (Auto) Seg Neutrophils % Seg Neuts % (Manual) Lymphocytes % (Manual) Seg Neutrophils # Seg Neutrophils # Man Lymphocytes # (Manual) Monocytes % (Manual) Eosinophils % (Manual) Monocytes # (Manual) Eosinophils # (Manual) D-Dimer Heparin Anti-Xa Level 0.17 L ABG pH POC ABG pCO2 POC ABG pO2 ABG pO2 ABG HCO3 ABG O2 Saturation ABG Base Excess ABG Hemoglobin ABG Oxyhemoglobin VBG pH ABG Sodium ABG Potassium ABG Glucose Oxyhemoglobin Sodium Potassium Chloride Carbon Dioxide BUN Creatinine Glucose POC Glucose 276 H 281 H Lactic Acid Calcium Ferritin AST Alkaline Phosphatase Magnesium Lactate Dehydrogenase Total Creatine Kinase CK-MB (CK-2) C-Reactive Protein Total Protein Albumin Troponin T HDL Cholesterol Arterial Blood Glucose Urine WBC (Auto) Urine Creatinine Urine Total Protein Phenytoin Coronavirus (PCR) Crossmatch 06/08/20 06/08/20 06/08/20 00:02 04:47 04:47 WBC 16.4 H RBC 3.07 L Hgb 8.6 L Hct 26.5 L MCHC RDW 16.3 H Lymph % (Auto) [place] % (Auto) Eos % (Auto) Lymph # [place] # Lymph # (Auto) [place] # (Auto) Eos # (Auto) Seg Neutrophils % Seg Neuts % (Manual) 90.0 H Lymphocytes % (Manual) 3.0 L Seg Neutrophils # Seg Neutrophils # Man 14.8 H Lymphocytes # (Manual) 0.5 L Monocytes % (Manual) Eosinophils % (Manual) Monocytes # (Manual) 1.1 H Eosinophils # (Manual) D-Dimer Heparin Anti-Xa Level ABG pH POC ABG pCO2 POC ABG pO2 ABG pO2 ABG HCO3 ABG O2 Saturation ABG Base Excess ABG Hemoglobin ABG Oxyhemoglobin VBG pH ABG Sodium ABG Potassium ABG Glucose Oxyhemoglobin Sodium 129 L Potassium Chloride 95.6 L Carbon Dioxide 17 L BUN 106 H Creatinine 2.5 H Glucose 213 H POC Glucose 242 H Lactic Acid Calcium 7.6 L Ferritin AST Alkaline Phosphatase Magnesium Lactate Dehydrogenase Total Creatine Kinase CK-MB (CK-2) C-Reactive Protein Total Protein 5.0 L Albumin 2.1 L Troponin T HDL Cholesterol Arterial Blood Glucose Urine WBC (Auto) Urine Creatinine Urine Total Protein Phenytoin Coronavirus (PCR) Crossmatch 06/08/20 06/08/20 06/08/20 05:40 11:55 17:54 WBC RBC Hgb Hct MCHC RDW Lymph % (Auto) [place] % (Auto) Eos % (Auto) Lymph # [place] # Lymph # (Auto) [place] # (Auto) Eos # (Auto) Seg Neutrophils % Seg Neuts % (Manual) Lymphocytes % (Manual) Seg Neutrophils # Seg Neutrophils # Man Lymphocytes # (Manual) Monocytes % (Manual) Eosinophils % (Manual) Monocytes # (Manual) Eosinophils # (Manual) D-Dimer Heparin Anti-Xa Level ABG pH POC ABG pCO2 POC ABG pO2 ABG pO2 ABG HCO3 ABG O2 Saturation ABG Base Excess ABG Hemoglobin ABG Oxyhemoglobin VBG pH ABG Sodium ABG Potassium ABG Glucose Oxyhemoglobin Sodium Potassium Chloride Carbon Dioxide BUN Creatinine Glucose POC Glucose 221 H 218 H 163 H Lactic Acid Calcium Ferritin AST Alkaline Phosphatase Magnesium Lactate Dehydrogenase Total Creatine Kinase CK-MB (CK-2) C-Reactive Protein Total Protein Albumin Troponin T HDL Cholesterol Arterial Blood Glucose Urine WBC (Auto) Urine Creatinine Urine Total Protein Phenytoin Coronavirus (PCR) Crossmatch 06/08/20 06/09/20 06/09/20 22:01 00:09 05:16 WBC 19.0 H RBC 3.35 L Hgb 9.2 L Hct 28.5 L MCHC RDW 16.3 H Lymph % (Auto) [place] % (Auto) Eos % (Auto) Lymph # [place] # Lymph # (Auto) [place] # (Auto) Eos # (Auto) Seg Neutrophils % Seg Neuts % (Manual) 85.0 H Lymphocytes % (Manual) 7.0 L Seg Neutrophils # Seg Neutrophils # Man 16.2 H Lymphocytes # (Manual) Monocytes % (Manual) Eosinophils % (Manual) Monocytes # (Manual) 1.3 H Eosinophils # (Manual) D-Dimer Heparin Anti-Xa Level ABG pH POC ABG pCO2 POC ABG pO2 ABG pO2 ABG HCO3 ABG O2 Saturation ABG Base Excess ABG Hemoglobin ABG Oxyhemoglobin VBG pH ABG Sodium ABG Potassium ABG Glucose Oxyhemoglobin Sodium Potassium Chloride Carbon Dioxide BUN Creatinine Glucose POC Glucose 182 H 150 H Lactic Acid Calcium Ferritin AST Alkaline Phosphatase Magnesium Lactate Dehydrogenase Total Creatine Kinase CK-MB (CK-2) C-Reactive Protein Total Protein Albumin Troponin T HDL Cholesterol Arterial Blood Glucose Urine WBC (Auto) Urine Creatinine Urine Total Protein Phenytoin Coronavirus (PCR) Crossmatch 06/09/20 06/09/20 06/09/20 05:16 05:24 11:29 WBC RBC Hgb Hct MCHC RDW Lymph % (Auto) [place] % (Auto) Eos % (Auto) Lymph # [place] # Lymph # (Auto) [place] # (Auto) Eos # (Auto) Seg Neutrophils % Seg Neuts % (Manual) Lymphocytes % (Manual) Seg Neutrophils # Seg Neutrophils # Man Lymphocytes # (Manual) Monocytes % (Manual) Eosinophils % (Manual) Monocytes # (Manual) Eosinophils # (Manual) D-Dimer Heparin Anti-Xa Level ABG pH POC ABG pCO2 POC ABG pO2 ABG pO2 ABG HCO3 ABG O2 Saturation ABG Base Excess ABG Hemoglobin ABG Oxyhemoglobin VBG pH ABG Sodium ABG Potassium ABG Glucose Oxyhemoglobin Sodium 133 L Potassium Chloride Carbon Dioxide 19 L BUN 109 H Creatinine 2.1 H Glucose 133 H POC Glucose 128 H 119 H Lactic Acid Calcium 7.7 L Ferritin AST Alkaline Phosphatase < 5 L Magnesium Lactate Dehydrogenase Total Creatine Kinase CK-MB (CK-2) C-Reactive Protein Total Protein 4.6 L Albumin < 0.2 L Troponin T HDL Cholesterol Arterial Blood Glucose Urine WBC (Auto) Urine Creatinine Urine Total Protein Phenytoin Coronavirus (PCR) Crossmatch 06/09/20 06/10/20 06/10/20 17:32 00:00 05:49 WBC RBC Hgb Hct MCHC RDW Lymph % (Auto) [place] % (Auto) Eos % (Auto) Lymph # [place] # Lymph # (Auto) [place] # (Auto) Eos # (Auto) Seg Neutrophils % Seg Neuts % (Manual) Lymphocytes % (Manual) Seg Neutrophils # Seg Neutrophils # Man Lymphocytes # (Manual) Monocytes % (Manual) Eosinophils % (Manual) Monocytes # (Manual) Eosinophils # (Manual) D-Dimer Heparin Anti-Xa Level 0.19 L ABG pH POC ABG pCO2 POC ABG pO2 ABG pO2 ABG HCO3 ABG O2 Saturation ABG Base Excess ABG Hemoglobin ABG Oxyhemoglobin VBG pH ABG Sodium ABG Potassium ABG Glucose Oxyhemoglobin Sodium Potassium Chloride Carbon Dioxide BUN Creatinine Glucose POC Glucose 106 H 117 H Lactic Acid Calcium Ferritin AST Alkaline Phosphatase Magnesium Lactate Dehydrogenase Total Creatine Kinase CK-MB (CK-2) C-Reactive Protein Total Protein Albumin Troponin T HDL Cholesterol Arterial Blood Glucose Urine WBC (Auto) Urine Creatinine Urine Total Protein Phenytoin Coronavirus (PCR) Crossmatch 06/10/20 06/10/20 06/10/20 05:54 07:40 11:40 WBC RBC Hgb Hct MCHC RDW Lymph % (Auto) [place] % (Auto) Eos % (Auto) Lymph # [place] # Lymph # (Auto) [place] # (Auto) Eos # (Auto) Seg Neutrophils % Seg Neuts % (Manual) Lymphocytes % (Manual) Seg Neutrophils # Seg Neutrophils # Man Lymphocytes # (Manual) Monocytes % (Manual) Eosinophils % (Manual) Monocytes # (Manual) Eosinophils # (Manual) D-Dimer Heparin Anti-Xa Level ABG pH POC ABG pCO2 POC ABG pO2 ABG pO2 ABG HCO3 ABG O2 Saturation ABG Base Excess ABG Hemoglobin ABG Oxyhemoglobin VBG pH ABG Sodium ABG Potassium ABG Glucose Oxyhemoglobin Sodium 146 H D Potassium Chloride Carbon Dioxide 20 L BUN 99 H Creatinine 1.9 H Glucose 121 H POC Glucose 127 H 138 H Lactic Acid Calcium 8.2 L Ferritin AST Alkaline Phosphatase Magnesium Lactate Dehydrogenase Total Creatine Kinase CK-MB (CK-2) C-Reactive Protein Total Protein Albumin Troponin T HDL Cholesterol Arterial Blood Glucose Urine WBC (Auto) Urine Creatinine Urine Total Protein Phenytoin Coronavirus (PCR) Crossmatch 06/10/20 06/10/20 06/10/20 14:44 17:31 23:22 WBC RBC Hgb Hct MCHC RDW Lymph % (Auto) [place] % (Auto) Eos % (Auto) Lymph # [place] # Lymph # (Auto) [place] # (Auto) Eos # (Auto) Seg Neutrophils % Seg Neuts % (Manual) Lymphocytes % (Manual) Seg Neutrophils # Seg Neutrophils # Man Lymphocytes # (Manual) Monocytes % (Manual) Eosinophils % (Manual) Monocytes # (Manual) Eosinophils # (Manual) D-Dimer Heparin Anti-Xa Level 0.17 L ABG pH POC ABG pCO2 POC ABG pO2 ABG pO2 ABG HCO3 ABG O2 Saturation ABG Base Excess ABG Hemoglobin ABG Oxyhemoglobin VBG pH ABG Sodium ABG Potassium ABG Glucose Oxyhemoglobin Sodium Potassium Chloride Carbon Dioxide BUN Creatinine Glucose POC Glucose 128 H 114 H Lactic Acid Calcium Ferritin AST Alkaline Phosphatase Magnesium Lactate Dehydrogenase Total Creatine Kinase CK-MB (CK-2) C-Reactive Protein Total Protein Albumin Troponin T HDL Cholesterol Arterial Blood Glucose Urine WBC (Auto) Urine Creatinine Urine Total Protein Phenytoin Coronavirus (PCR) Crossmatch 06/11/20 06/11/20 06/11/20 00:22 03:45 03:45 WBC 14.6 H RBC 2.77 L Hgb 7.9 L Hct 24.3 L MCHC RDW 16.8 H Lymph % (Auto) 6.6 L [place] % (Auto) 8.5 H Eos % (Auto) Lymph # 1.0 L [place] # 1.2 H Lymph # (Auto) [place] # (Auto) Eos # (Auto) Seg Neutrophils % 82.9 H Seg Neuts % (Manual) Lymphocytes % (Manual) Seg Neutrophils # 12.1 H Seg Neutrophils # Man Lymphocytes # (Manual) Monocytes % (Manual) Eosinophils % (Manual) Monocytes # (Manual) Eosinophils # (Manual) D-Dimer Heparin Anti-Xa Level 0.24 L ABG pH POC ABG pCO2 POC ABG pO2 ABG pO2 ABG HCO3 ABG O2 Saturation ABG Base Excess ABG Hemoglobin ABG Oxyhemoglobin VBG pH ABG Sodium ABG Potassium ABG Glucose Oxyhemoglobin Sodium Potassium Chloride Carbon Dioxide 20 L BUN 88 H Creatinine 1.5 H Glucose 111 H POC Glucose Lactic Acid Calcium 8.2 L Ferritin AST Alkaline Phosphatase Magnesium Lactate Dehydrogenase Total Creatine Kinase CK-MB (CK-2) C-Reactive Protein Total Protein Albumin Troponin T HDL Cholesterol Arterial Blood Glucose Urine WBC (Auto) Urine Creatinine Urine Total Protein Phenytoin Coronavirus (PCR) Crossmatch 06/11/20 06/11/20 06/11/20 06:03 10:22 11:11 WBC RBC Hgb Hct MCHC RDW Lymph % (Auto) [place] % (Auto) Eos % (Auto) Lymph # [place] # Lymph # (Auto) [place] # (Auto) Eos # (Auto) Seg Neutrophils % Seg Neuts % (Manual) Lymphocytes % (Manual) Seg Neutrophils # Seg Neutrophils # Man Lymphocytes # (Manual) Monocytes % (Manual) Eosinophils % (Manual) Monocytes # (Manual) Eosinophils # (Manual) D-Dimer Heparin Anti-Xa Level 0.26 L ABG pH POC ABG pCO2 POC ABG pO2 ABG pO2 ABG HCO3 ABG O2 Saturation ABG Base Excess ABG Hemoglobin 9.6 L ABG Oxyhemoglobin VBG pH ABG Sodium ABG Potassium ABG Glucose Oxyhemoglobin Sodium Potassium Chloride Carbon Dioxide BUN Creatinine Glucose POC Glucose 114 H Lactic Acid Calcium Ferritin AST Alkaline Phosphatase Magnesium Lactate Dehydrogenase Total Creatine Kinase CK-MB (CK-2) C-Reactive Protein Total Protein Albumin Troponin T HDL Cholesterol Arterial Blood Glucose Urine WBC (Auto) Urine Creatinine Urine Total Protein Phenytoin Coronavirus (PCR) Crossmatch 06/11/20 06/11/20 06/12/20 12:24 17:24 00:21 WBC RBC Hgb Hct MCHC RDW Lymph % (Auto) [place] % (Auto) Eos % (Auto) Lymph # [place] # Lymph # (Auto) [place] # (Auto) Eos # (Auto) Seg Neutrophils % Seg Neuts % (Manual) Lymphocytes % (Manual) Seg Neutrophils # Seg Neutrophils # Man Lymphocytes # (Manual) Monocytes % (Manual) Eosinophils % (Manual) Monocytes # (Manual) Eosinophils # (Manual) D-Dimer Heparin Anti-Xa Level ABG pH POC ABG pCO2 POC ABG pO2 ABG pO2 ABG HCO3 ABG O2 Saturation ABG Base Excess ABG Hemoglobin ABG Oxyhemoglobin VBG pH ABG Sodium ABG Potassium ABG Glucose Oxyhemoglobin Sodium Potassium Chloride Carbon Dioxide BUN Creatinine Glucose POC Glucose 119 H 126 H 117 H Lactic Acid Calcium Ferritin AST Alkaline Phosphatase Magnesium Lactate Dehydrogenase Total Creatine Kinase CK-MB (CK-2) C-Reactive Protein Total Protein Albumin Troponin T HDL Cholesterol Arterial Blood Glucose Urine WBC (Auto) Urine Creatinine Urine Total Protein Phenytoin Coronavirus (PCR) Crossmatch 06/12/20 06/12/20 06/12/20 02:46 02:46 05:46 WBC 13.2 H RBC 2.83 L Hgb 8.3 L Hct 24.3 L MCHC RDW 16.6 H Lymph % (Auto) 6.2 L [place] % (Auto) 9.5 H Eos % (Auto) Lymph # 0.8 L [place] # 1.3 H Lymph # (Auto) [place] # (Auto) Eos # (Auto) Seg Neutrophils % 81.9 H Seg Neuts % (Manual) Lymphocytes % (Manual) Seg Neutrophils # 10.9 H Seg Neutrophils # Man Lymphocytes # (Manual) Monocytes % (Manual) Eosinophils % (Manual) Monocytes # (Manual) Eosinophils # (Manual) D-Dimer Heparin Anti-Xa Level ABG pH POC ABG pCO2 POC ABG pO2 ABG pO2 ABG HCO3 ABG O2 Saturation ABG Base Excess ABG Hemoglobin ABG Oxyhemoglobin VBG pH ABG Sodium ABG Potassium ABG Glucose Oxyhemoglobin Sodium Potassium 3.5 L Chloride Carbon Dioxide BUN 77 H Creatinine 1.3 H Glucose POC Glucose 132 H Lactic Acid Calcium 8.3 L Ferritin AST Alkaline Phosphatase Magnesium Lactate Dehydrogenase Total Creatine Kinase CK-MB (CK-2) C-Reactive Protein Total Protein Albumin Troponin T HDL Cholesterol Arterial Blood Glucose Urine WBC (Auto) Urine Creatinine Urine Total Protein Phenytoin Coronavirus (PCR) Crossmatch 06/12/20 06/12/20 06/12/20 09:20 12:16 17:48 WBC RBC Hgb Hct MCHC RDW Lymph % (Auto) [place] % (Auto) Eos % (Auto) Lymph # [place] # Lymph # (Auto) [place] # (Auto) Eos # (Auto) Seg Neutrophils % Seg Neuts % (Manual) Lymphocytes % (Manual) Seg Neutrophils # Seg Neutrophils # Man Lymphocytes # (Manual) Monocytes % (Manual) Eosinophils % (Manual) Monocytes # (Manual) Eosinophils # (Manual) D-Dimer Heparin Anti-Xa Level ABG pH POC ABG pCO2 POC ABG pO2 ABG pO2 91.1 H ABG HCO3 ABG O2 Saturation ABG Base Excess ABG Hemoglobin ABG Oxyhemoglobin VBG pH ABG Sodium ABG Potassium ABG Glucose Oxyhemoglobin 94.8 L Sodium Potassium Chloride Carbon Dioxide BUN Creatinine Glucose POC Glucose 167 H 182 H Lactic Acid Calcium Ferritin AST Alkaline Phosphatase Magnesium Lactate Dehydrogenase Total Creatine Kinase CK-MB (CK-2) C-Reactive Protein Total Protein Albumin Troponin T HDL Cholesterol Arterial Blood Glucose Urine WBC (Auto) Urine Creatinine Urine Total Protein Phenytoin Coronavirus (PCR) Crossmatch 06/13/20 06/13/20 06/13/20 00:08 05:37 09:09 WBC RBC Hgb Hct MCHC RDW Lymph % (Auto) [place] % (Auto) Eos % (Auto) Lymph # [place] # Lymph # (Auto) [place] # (Auto) Eos # (Auto) Seg Neutrophils % Seg Neuts % (Manual) Lymphocytes % (Manual) Seg Neutrophils # Seg Neutrophils # Man Lymphocytes # (Manual) Monocytes % (Manual) Eosinophils % (Manual) Monocytes # (Manual) Eosinophils # (Manual) D-Dimer Heparin Anti-Xa Level 0.86 H ABG pH POC ABG pCO2 POC ABG pO2 ABG pO2 ABG HCO3 ABG O2 Saturation ABG Base Excess ABG Hemoglobin ABG Oxyhemoglobin VBG pH ABG Sodium ABG Potassium ABG Glucose Oxyhemoglobin Sodium Potassium Chloride Carbon Dioxide BUN Creatinine Glucose POC Glucose 142 H 119 H Lactic Acid Calcium Ferritin AST Alkaline Phosphatase Magnesium Lactate Dehydrogenase Total Creatine Kinase CK-MB (CK-2) C-Reactive Protein Total Protein Albumin Troponin T HDL Cholesterol Arterial Blood Glucose Urine WBC (Auto) Urine Creatinine Urine Total Protein Phenytoin Coronavirus (PCR) Crossmatch 06/13/20 06/13/20 06/13/20 12:28 17:55 21:17 WBC RBC Hgb Hct MCHC RDW Lymph % (Auto) [place] % (Auto) Eos % (Auto) Lymph # [place] # Lymph # (Auto) [place] # (Auto) Eos # (Auto) Seg Neutrophils % Seg Neuts % (Manual) Lymphocytes % (Manual) Seg Neutrophils # Seg Neutrophils # Man Lymphocytes # (Manual) Monocytes % (Manual) Eosinophils % (Manual) Monocytes # (Manual) Eosinophils # (Manual) D-Dimer Heparin Anti-Xa Level ABG pH POC ABG pCO2 POC ABG pO2 ABG pO2 ABG HCO3 ABG O2 Saturation ABG Base Excess ABG Hemoglobin ABG Oxyhemoglobin VBG pH ABG Sodium ABG Potassium ABG Glucose Oxyhemoglobin Sodium Potassium Chloride Carbon Dioxide BUN 61 H Creatinine Glucose 131 H POC Glucose 165 H 174 H Lactic Acid Calcium Ferritin AST Alkaline Phosphatase Magnesium Lactate Dehydrogenase Total Creatine Kinase CK-MB (CK-2) C-Reactive Protein Total Protein Albumin Troponin T HDL Cholesterol Arterial Blood Glucose Urine WBC (Auto) Urine Creatinine Urine Total Protein Phenytoin Coronavirus (PCR) Crossmatch 06/13/20 06/13/20 06/14/20 21:17 23:50 05:34 WBC RBC Hgb Hct MCHC RDW Lymph % (Auto) [place] % (Auto) Eos % (Auto) Lymph # [place] # Lymph # (Auto) [place] # (Auto) Eos # (Auto) Seg Neutrophils % Seg Neuts % (Manual) Lymphocytes % (Manual) Seg Neutrophils # Seg Neutrophils # Man Lymphocytes # (Manual) Monocytes % (Manual) Eosinophils % (Manual) Monocytes # (Manual) Eosinophils # (Manual) D-Dimer Heparin Anti-Xa Level 0.72 H ABG pH POC ABG pCO2 POC ABG pO2 ABG pO2 ABG HCO3 ABG O2 Saturation ABG Base Excess ABG Hemoglobin ABG Oxyhemoglobin VBG pH ABG Sodium ABG Potassium ABG Glucose Oxyhemoglobin Sodium 146 H Potassium Chloride 107.6 H Carbon Dioxide BUN 61 H Creatinine 1.3 H Glucose 135 H POC Glucose 146 H Lactic Acid Calcium Ferritin AST Alkaline Phosphatase Magnesium Lactate Dehydrogenase Total Creatine Kinase CK-MB (CK-2) C-Reactive Protein Total Protein Albumin Troponin T HDL Cholesterol Arterial Blood Glucose Urine WBC (Auto) Urine Creatinine Urine Total Protein Phenytoin Coronavirus (PCR) Crossmatch 06/14/20 06/14/20 06/14/20 06:11 09:28 11:30 WBC RBC Hgb Hct MCHC RDW Lymph % (Auto) [place] % (Auto) Eos % (Auto) Lymph # [place] # Lymph # (Auto) [place] # (Auto) Eos # (Auto) Seg Neutrophils % Seg Neuts % (Manual) Lymphocytes % (Manual) Seg Neutrophils # Seg Neutrophils # Man Lymphocytes # (Manual) Monocytes % (Manual) Eosinophils % (Manual) Monocytes # (Manual) Eosinophils # (Manual) D-Dimer Heparin Anti-Xa Level 0.90 H ABG pH POC ABG pCO2 POC ABG pO2 ABG pO2 ABG HCO3 ABG O2 Saturation ABG Base Excess ABG Hemoglobin ABG Oxyhemoglobin VBG pH ABG Sodium ABG Potassium ABG Glucose Oxyhemoglobin Sodium Potassium Chloride Carbon Dioxide BUN Creatinine Glucose POC Glucose 141 H 186 H Lactic Acid Calcium Ferritin AST Alkaline Phosphatase Magnesium Lactate Dehydrogenase Total Creatine Kinase CK-MB (CK-2) C-Reactive Protein Total Protein Albumin Troponin T HDL Cholesterol Arterial Blood Glucose Urine WBC (Auto) Urine Creatinine Urine Total Protein Phenytoin Coronavirus (PCR) Crossmatch 06/14/20 06/14/20 06/14/20 16:07 18:16 23:51 WBC RBC Hgb Hct MCHC RDW Lymph % (Auto) [place] % (Auto) Eos % (Auto) Lymph # [place] # Lymph # (Auto) [place] # (Auto) Eos # (Auto) Seg Neutrophils % Seg Neuts % (Manual) Lymphocytes % (Manual) Seg Neutrophils # Seg Neutrophils # Man Lymphocytes # (Manual) Monocytes % (Manual) Eosinophils % (Manual) Monocytes # (Manual) Eosinophils # (Manual) D-Dimer Heparin Anti-Xa Level 0.82 H ABG pH POC ABG pCO2 POC ABG pO2 ABG pO2 ABG HCO3 ABG O2 Saturation ABG Base Excess ABG Hemoglobin ABG Oxyhemoglobin VBG pH ABG Sodium ABG Potassium ABG Glucose Oxyhemoglobin Sodium Potassium Chloride Carbon Dioxide BUN Creatinine Glucose POC Glucose 106 H 154 H Lactic Acid Calcium Ferritin AST Alkaline Phosphatase Magnesium Lactate Dehydrogenase Total Creatine Kinase CK-MB (CK-2) C-Reactive Protein Total Protein Albumin Troponin T HDL Cholesterol Arterial Blood Glucose Urine WBC (Auto) Urine Creatinine Urine Total Protein Phenytoin Coronavirus (PCR) Crossmatch 06/15/20 06/15/20 06/15/20 04:24 04:24 05:59 WBC RBC 2.75 L Hgb 7.9 L Hct 24.0 L MCHC RDW 16.4 H Lymph % (Auto) 12.9 L [place] % (Auto) 8.7 H Eos % (Auto) 4.6 H Lymph # 1.1 L [place] # Lymph # (Auto) [place] # (Auto) Eos # (Auto) Seg Neutrophils % 73.2 H Seg Neuts % (Manual) Lymphocytes % (Manual) Seg Neutrophils # Seg Neutrophils # Man Lymphocytes # (Manual) Monocytes % (Manual) Eosinophils % (Manual) Monocytes # (Manual) Eosinophils # (Manual) D-Dimer Heparin Anti-Xa Level ABG pH POC ABG pCO2 POC ABG pO2 ABG pO2 ABG HCO3 ABG O2 Saturation ABG Base Excess ABG Hemoglobin ABG Oxyhemoglobin VBG pH ABG Sodium ABG Potassium ABG Glucose Oxyhemoglobin Sodium Potassium 3.4 L Chloride Carbon Dioxide BUN 55 H Creatinine 1.3 H Glucose 142 H POC Glucose 131 H Lactic Acid Calcium Ferritin AST Alkaline Phosphatase Magnesium Lactate Dehydrogenase Total Creatine Kinase CK-MB (CK-2) C-Reactive Protein Total Protein Albumin Troponin T HDL Cholesterol Arterial Blood Glucose Urine WBC (Auto) Urine Creatinine Urine Total Protein Phenytoin Coronavirus (PCR) Crossmatch 06/15/20 06/15/20 06/16/20 12:33 17:07 00:22 WBC RBC Hgb Hct MCHC RDW Lymph % (Auto) [place] % (Auto) Eos % (Auto) Lymph # [place] # Lymph # (Auto) [place] # (Auto) Eos # (Auto) Seg Neutrophils % Seg Neuts % (Manual) Lymphocytes % (Manual) Seg Neutrophils # Seg Neutrophils # Man Lymphocytes # (Manual) Monocytes % (Manual) Eosinophils % (Manual) Monocytes # (Manual) Eosinophils # (Manual) D-Dimer Heparin Anti-Xa Level 0.21 L ABG pH POC ABG pCO2 POC ABG pO2 ABG pO2 ABG HCO3 ABG O2 Saturation ABG Base Excess ABG Hemoglobin ABG Oxyhemoglobin VBG pH ABG Sodium ABG Potassium ABG Glucose Oxyhemoglobin Sodium Potassium Chloride Carbon Dioxide BUN Creatinine Glucose POC Glucose 180 H 185 H Lactic Acid Calcium Ferritin AST Alkaline Phosphatase Magnesium Lactate Dehydrogenase Total Creatine Kinase CK-MB (CK-2) C-Reactive Protein Total Protein Albumin Troponin T HDL Cholesterol Arterial Blood Glucose Urine WBC (Auto) Urine Creatinine Urine Total Protein Phenytoin Coronavirus (PCR) Crossmatch 06/16/20 06/16/20 06/16/20 01:45 08:06 09:15 WBC RBC Hgb Hct MCHC RDW Lymph % (Auto) [place] % (Auto) Eos % (Auto) Lymph # [place] # Lymph # (Auto) [place] # (Auto) Eos # (Auto) Seg Neutrophils % Seg Neuts % (Manual) Lymphocytes % (Manual) Seg Neutrophils # Seg Neutrophils # Man Lymphocytes # (Manual) Monocytes % (Manual) Eosinophils % (Manual) Monocytes # (Manual) Eosinophils # (Manual) D-Dimer Heparin Anti-Xa Level ABG pH POC ABG pCO2 POC ABG pO2 ABG pO2 ABG HCO3 ABG O2 Saturation ABG Base Excess ABG Hemoglobin ABG Oxyhemoglobin VBG pH ABG Sodium ABG Potassium ABG Glucose Oxyhemoglobin Sodium Potassium Chloride Carbon Dioxide BUN 49 H Creatinine Glucose 154 H POC Glucose 140 H 171 H Lactic Acid Calcium Ferritin AST Alkaline Phosphatase Magnesium Lactate Dehydrogenase Total Creatine Kinase CK-MB (CK-2) C-Reactive Protein Total Protein Albumin Troponin T HDL Cholesterol Arterial Blood Glucose Urine WBC (Auto) Urine Creatinine Urine Total Protein Phenytoin Coronavirus (PCR) Crossmatch 06/16/20 06/16/20 06/16/20 10:46 12:33 17:54 WBC RBC Hgb Hct MCHC RDW Lymph % (Auto) [place] % (Auto) Eos % (Auto) Lymph # [place] # Lymph # (Auto) [place] # (Auto) Eos # (Auto) Seg Neutrophils % Seg Neuts % (Manual) Lymphocytes % (Manual) Seg Neutrophils # Seg Neutrophils # Man Lymphocytes # (Manual) Monocytes % (Manual) Eosinophils % (Manual) Monocytes # (Manual) Eosinophils # (Manual) D-Dimer Heparin Anti-Xa Level 0.12 L ABG pH POC ABG pCO2 POC ABG pO2 ABG pO2 ABG HCO3 ABG O2 Saturation ABG Base Excess ABG Hemoglobin ABG Oxyhemoglobin VBG pH ABG Sodium ABG Potassium ABG Glucose Oxyhemoglobin Sodium Potassium Chloride Carbon Dioxide BUN Creatinine Glucose POC Glucose 166 H 151 H Lactic Acid Calcium Ferritin AST Alkaline Phosphatase Magnesium Lactate Dehydrogenase Total Creatine Kinase CK-MB (CK-2) C-Reactive Protein Total Protein Albumin Troponin T HDL Cholesterol Arterial Blood Glucose Urine WBC (Auto) Urine Creatinine Urine Total Protein Phenytoin Coronavirus (PCR) Crossmatch 06/16/20 06/17/20 06/17/20 18:47 00:00 02:19 WBC RBC Hgb Hct MCHC RDW Lymph % (Auto) [place] % (Auto) Eos % (Auto) Lymph # [place] # Lymph # (Auto) [place] # (Auto) Eos # (Auto) Seg Neutrophils % Seg Neuts % (Manual) Lymphocytes % (Manual) Seg Neutrophils # Seg Neutrophils # Man Lymphocytes # (Manual) Monocytes % (Manual) Eosinophils % (Manual) Monocytes # (Manual) Eosinophils # (Manual) D-Dimer Heparin Anti-Xa Level 0.73 H 0.77 H ABG pH POC ABG pCO2 POC ABG pO2 ABG pO2 ABG HCO3 ABG O2 Saturation ABG Base Excess ABG Hemoglobin ABG Oxyhemoglobin VBG pH ABG Sodium ABG Potassium ABG Glucose Oxyhemoglobin Sodium Potassium Chloride Carbon Dioxide BUN Creatinine Glucose POC Glucose 139 H Lactic Acid Calcium Ferritin AST Alkaline Phosphatase Magnesium Lactate Dehydrogenase Total Creatine Kinase CK-MB (CK-2) C-Reactive Protein Total Protein Albumin Troponin T HDL Cholesterol Arterial Blood Glucose Urine WBC (Auto) Urine Creatinine Urine Total Protein Phenytoin Coronavirus (PCR) Crossmatch 06/17/20 06/17/20 06/17/20 06:07 11:42 16:43 WBC RBC Hgb Hct MCHC RDW Lymph % (Auto) [place] % (Auto) Eos % (Auto) Lymph # [place] # Lymph # (Auto) [place] # (Auto) Eos # (Auto) Seg Neutrophils % Seg Neuts % (Manual) Lymphocytes % (Manual) Seg Neutrophils # Seg Neutrophils # Man Lymphocytes # (Manual) Monocytes % (Manual) Eosinophils % (Manual) Monocytes # (Manual) Eosinophils # (Manual) D-Dimer Heparin Anti-Xa Level 0.73 H ABG pH POC ABG pCO2 POC ABG pO2 ABG pO2 ABG HCO3 ABG O2 Saturation ABG Base Excess ABG Hemoglobin ABG Oxyhemoglobin VBG pH ABG Sodium ABG Potassium ABG Glucose Oxyhemoglobin Sodium Potassium Chloride Carbon Dioxide BUN Creatinine Glucose POC Glucose 169 H 169 H Lactic Acid Calcium Ferritin AST Alkaline Phosphatase Magnesium Lactate Dehydrogenase Total Creatine Kinase CK-MB (CK-2) C-Reactive Protein Total Protein Albumin Troponin T HDL Cholesterol Arterial Blood Glucose Urine WBC (Auto) Urine Creatinine Urine Total Protein Phenytoin Coronavirus (PCR) Crossmatch 06/17/20 06/17/20 06/17/20 18:18 23:08 23:16 WBC RBC Hgb Hct MCHC RDW Lymph % (Auto) [place] % (Auto) Eos % (Auto) Lymph # [place] # Lymph # (Auto) [place] # (Auto) Eos # (Auto) Seg Neutrophils % Seg Neuts % (Manual) Lymphocytes % (Manual) Seg Neutrophils # Seg Neutrophils # Man Lymphocytes # (Manual) Monocytes % (Manual) Eosinophils % (Manual) Monocytes # (Manual) Eosinophils # (Manual) D-Dimer Heparin Anti-Xa Level 0.71 H ABG pH POC ABG pCO2 POC ABG pO2 ABG pO2 ABG HCO3 ABG O2 Saturation ABG Base Excess ABG Hemoglobin ABG Oxyhemoglobin VBG pH ABG Sodium ABG Potassium ABG Glucose Oxyhemoglobin Sodium Potassium Chloride Carbon Dioxide BUN Creatinine Glucose POC Glucose 159 H 134 H Lactic Acid Calcium Ferritin AST Alkaline Phosphatase Magnesium Lactate Dehydrogenase Total Creatine Kinase CK-MB (CK-2) C-Reactive Protein Total Protein Albumin Troponin T HDL Cholesterol Arterial Blood Glucose Urine WBC (Auto) Urine Creatinine Urine Total Protein Phenytoin Coronavirus (PCR) Crossmatch 06/18/20 06/18/20 06/18/20 04:42 05:52 11:50 WBC RBC Hgb Hct MCHC RDW Lymph % (Auto) [place] % (Auto) Eos % (Auto) Lymph # [place] # Lymph # (Auto) [place] # (Auto) Eos # (Auto) Seg Neutrophils % Seg Neuts % (Manual) Lymphocytes % (Manual) Seg Neutrophils # Seg Neutrophils # Man Lymphocytes # (Manual) Monocytes % (Manual) Eosinophils % (Manual) Monocytes # (Manual) Eosinophils # (Manual) D-Dimer Heparin Anti-Xa Level ABG pH POC ABG pCO2 POC ABG pO2 ABG pO2 ABG HCO3 ABG O2 Saturation ABG Base Excess ABG Hemoglobin ABG Oxyhemoglobin VBG pH ABG Sodium ABG Potassium ABG Glucose Oxyhemoglobin Sodium Potassium Chloride Carbon Dioxide BUN 44 H Creatinine Glucose 115 H POC Glucose 171 H 167 H Lactic Acid Calcium Ferritin AST Alkaline Phosphatase Magnesium Lactate Dehydrogenase Total Creatine Kinase CK-MB (CK-2) C-Reactive Protein Total Protein Albumin Troponin T HDL Cholesterol Arterial Blood Glucose Urine WBC (Auto) Urine Creatinine Urine Total Protein Phenytoin Coronavirus (PCR) Crossmatch 06/18/20 06/19/20 06/19/20 23:46 05:48 07:52 WBC RBC Hgb Hct MCHC RDW Lymph % (Auto) [place] % (Auto) Eos % (Auto) Lymph # [place] # Lymph # (Auto) [place] # (Auto) Eos # (Auto) Seg Neutrophils % Seg Neuts % (Manual) Lymphocytes % (Manual) Seg Neutrophils # Seg Neutrophils # Man Lymphocytes # (Manual) Monocytes % (Manual) Eosinophils % (Manual) Monocytes # (Manual) Eosinophils # (Manual) D-Dimer Heparin Anti-Xa Level ABG pH POC ABG pCO2 POC ABG pO2 ABG pO2 ABG HCO3 ABG O2 Saturation ABG Base Excess ABG Hemoglobin ABG Oxyhemoglobin VBG pH ABG Sodium ABG Potassium ABG Glucose Oxyhemoglobin Sodium Potassium Chloride Carbon Dioxide BUN Creatinine Glucose POC Glucose 130 H 207 H 175 H Lactic Acid Calcium Ferritin AST Alkaline Phosphatase Magnesium Lactate Dehydrogenase Total Creatine Kinase CK-MB (CK-2) C-Reactive Protein Total Protein Albumin Troponin T HDL Cholesterol Arterial Blood Glucose Urine WBC (Auto) Urine Creatinine Urine Total Protein Phenytoin Coronavirus (PCR) Crossmatch 06/19/20 06/19/20 06/20/20 11:42 22:54 05:17 WBC RBC Hgb Hct MCHC RDW Lymph % (Auto) [place] % (Auto) Eos % (Auto) Lymph # [place] # Lymph # (Auto) [place] # (Auto) Eos # (Auto) Seg Neutrophils % Seg Neuts % (Manual) Lymphocytes % (Manual) Seg Neutrophils # Seg Neutrophils # Man Lymphocytes # (Manual) Monocytes % (Manual) Eosinophils % (Manual) Monocytes # (Manual) Eosinophils # (Manual) D-Dimer Heparin Anti-Xa Level ABG pH POC ABG pCO2 POC ABG pO2 ABG pO2 ABG HCO3 ABG O2 Saturation ABG Base Excess ABG Hemoglobin ABG Oxyhemoglobin VBG pH ABG Sodium ABG Potassium ABG Glucose Oxyhemoglobin Sodium Potassium Chloride Carbon Dioxide BUN Creatinine Glucose POC Glucose 166 H 135 H 218 H Lactic Acid Calcium Ferritin AST Alkaline Phosphatase Magnesium Lactate Dehydrogenase Total Creatine Kinase CK-MB (CK-2) C-Reactive Protein Total Protein Albumin Troponin T HDL Cholesterol Arterial Blood Glucose Urine WBC (Auto) Urine Creatinine Urine Total Protein Phenytoin Coronavirus (PCR) Crossmatch 06/20/20 06/20/20 06/20/20 12:04 16:25 16:35 WBC RBC Hgb Hct MCHC RDW Lymph % (Auto) [place] % (Auto) Eos % (Auto) Lymph # [place] # Lymph # (Auto) [place] # (Auto) Eos # (Auto) Seg Neutrophils % Seg Neuts % (Manual) Lymphocytes % (Manual) Seg Neutrophils # Seg Neutrophils # Man Lymphocytes # (Manual) Monocytes % (Manual) Eosinophils % (Manual) Monocytes # (Manual) Eosinophils # (Manual) D-Dimer Heparin Anti-Xa Level ABG pH POC ABG pCO2 POC ABG pO2 ABG pO2 59.6 L ABG HCO3 28.7 H ABG O2 Saturation 93.5 L ABG Base Excess 3.4 H ABG Hemoglobin 7.2 L ABG Oxyhemoglobin VBG pH ABG Sodium ABG Potassium ABG Glucose Oxyhemoglobin 91.3 L Sodium Potassium Chloride Carbon Dioxide BUN Creatinine Glucose POC Glucose 194 H 137 H Lactic Acid Calcium Ferritin AST Alkaline Phosphatase Magnesium Lactate Dehydrogenase Total Creatine Kinase CK-MB (CK-2) C-Reactive Protein Total Protein Albumin Troponin T HDL Cholesterol Arterial Blood Glucose Urine WBC (Auto) Urine Creatinine Urine Total Protein Phenytoin Coronavirus (PCR) Crossmatch 06/20/20 06/21/20 06/21/20 23:59 06:25 12:01 WBC RBC Hgb Hct MCHC RDW Lymph % (Auto) [place] % (Auto) Eos % (Auto) Lymph # [place] # Lymph # (Auto) [place] # (Auto) Eos # (Auto) Seg Neutrophils % Seg Neuts % (Manual) Lymphocytes % (Manual) Seg Neutrophils # Seg Neutrophils # Man Lymphocytes # (Manual) Monocytes % (Manual) Eosinophils % (Manual) Monocytes # (Manual) Eosinophils # (Manual) D-Dimer Heparin Anti-Xa Level ABG pH POC ABG pCO2 POC ABG pO2 ABG pO2 ABG HCO3 ABG O2 Saturation ABG Base Excess ABG Hemoglobin ABG Oxyhemoglobin VBG pH ABG Sodium ABG Potassium ABG Glucose Oxyhemoglobin Sodium Potassium Chloride Carbon Dioxide BUN Creatinine Glucose POC Glucose 156 H 177 H 195 H Lactic Acid Calcium Ferritin AST Alkaline Phosphatase Magnesium Lactate Dehydrogenase Total Creatine Kinase CK-MB (CK-2) C-Reactive Protein Total Protein Albumin Troponin T HDL Cholesterol Arterial Blood Glucose Urine WBC (Auto) Urine Creatinine Urine Total Protein Phenytoin Coronavirus (PCR) Crossmatch 06/21/20 06/21/20 06/22/20 17:04 21:51 05:06 WBC RBC Hgb Hct MCHC RDW Lymph % (Auto) [place] % (Auto) Eos % (Auto) Lymph # [place] # Lymph # (Auto) [place] # (Auto) Eos # (Auto) Seg Neutrophils % Seg Neuts % (Manual) Lymphocytes % (Manual) Seg Neutrophils # Seg Neutrophils # Man Lymphocytes # (Manual) Monocytes % (Manual) Eosinophils % (Manual) Monocytes # (Manual) Eosinophils # (Manual) D-Dimer Heparin Anti-Xa Level ABG pH POC ABG pCO2 POC ABG pO2 ABG pO2 ABG HCO3 ABG O2 Saturation ABG Base Excess ABG Hemoglobin ABG Oxyhemoglobin VBG pH ABG Sodium ABG Potassium ABG Glucose Oxyhemoglobin Sodium Potassium Chloride Carbon Dioxide BUN Creatinine Glucose POC Glucose 156 H 154 H 167 H Lactic Acid Calcium Ferritin AST Alkaline Phosphatase Magnesium Lactate Dehydrogenase Total Creatine Kinase CK-MB (CK-2) C-Reactive Protein Total Protein Albumin Troponin T HDL Cholesterol Arterial Blood Glucose Urine WBC (Auto) Urine Creatinine Urine Total Protein Phenytoin Coronavirus (PCR) Crossmatch 06/22/20 06/22/20 06/22/20 11:20 15:27 16:58 WBC RBC Hgb Hct MCHC RDW Lymph % (Auto) [place] % (Auto) Eos % (Auto) Lymph # [place] # Lymph # (Auto) [place] # (Auto) Eos # (Auto) Seg Neutrophils % Seg Neuts % (Manual) Lymphocytes % (Manual) Seg Neutrophils # Seg Neutrophils # Man Lymphocytes # (Manual) Monocytes % (Manual) Eosinophils % (Manual) Monocytes # (Manual) Eosinophils # (Manual) D-Dimer Heparin Anti-Xa Level ABG pH 7.206 L POC ABG pCO2 79.9 H POC ABG pO2 ABG pO2 ABG HCO3 ABG O2 Saturation ABG Base Excess ABG Hemoglobin 8.3 L ABG Oxyhemoglobin VBG pH ABG Sodium ABG Potassium ABG Glucose Oxyhemoglobin Sodium Potassium Chloride Carbon Dioxide BUN Creatinine Glucose POC Glucose 181 H 230 H Lactic Acid Calcium Ferritin AST Alkaline Phosphatase Magnesium Lactate Dehydrogenase Total Creatine Kinase CK-MB (CK-2) C-Reactive Protein Total Protein Albumin Troponin T HDL Cholesterol Arterial Blood Glucose Urine WBC (Auto) Urine Creatinine Urine Total Protein Phenytoin Coronavirus (PCR) Crossmatch 06/22/20 06/23/20 06/23/20 22:26 05:49 05:49 WBC RBC 2.58 L Hgb 7.4 L Hct 23.2 L MCHC RDW 17.0 H Lymph % (Auto) [place] % (Auto) 11.2 H Eos % (Auto) Lymph # 1.0 L [place] # Lymph # (Auto) [place] # (Auto) Eos # (Auto) Seg Neutrophils % Seg Neuts % (Manual) Lymphocytes % (Manual) Seg Neutrophils # Seg Neutrophils # Man Lymphocytes # (Manual) Monocytes % (Manual) Eosinophils % (Manual) Monocytes # (Manual) Eosinophils # (Manual) D-Dimer Heparin Anti-Xa Level ABG pH POC ABG pCO2 POC ABG pO2 ABG pO2 ABG HCO3 ABG O2 Saturation ABG Base Excess ABG Hemoglobin ABG Oxyhemoglobin VBG pH ABG Sodium ABG Potassium ABG Glucose Oxyhemoglobin Sodium Potassium Chloride Carbon Dioxide BUN 68 H Creatinine 2.4 H Glucose 198 H POC Glucose 195 H Lactic Acid Calcium Ferritin AST Alkaline Phosphatase Magnesium Lactate Dehydrogenase Total Creatine Kinase CK-MB (CK-2) C-Reactive Protein Total Protein Albumin Troponin T HDL Cholesterol Arterial Blood Glucose Urine WBC (Auto) Urine Creatinine Urine Total Protein Phenytoin Coronavirus (PCR) Crossmatch 06/23/20 06/23/20 06/23/20 05:50 12:29 12:34 WBC RBC Hgb Hct MCHC RDW Lymph % (Auto) [place] % (Auto) Eos % (Auto) Lymph # [place] # Lymph # (Auto) [place] # (Auto) Eos # (Auto) Seg Neutrophils % Seg Neuts % (Manual) Lymphocytes % (Manual) Seg Neutrophils # Seg Neutrophils # Man Lymphocytes # (Manual) Monocytes % (Manual) Eosinophils % (Manual) Monocytes # (Manual) Eosinophils # (Manual) D-Dimer Heparin Anti-Xa Level ABG pH POC ABG pCO2 54.7 H POC ABG pO2 68.8 L ABG pO2 ABG HCO3 ABG O2 Saturation ABG Base Excess ABG Hemoglobin 9.8 L ABG Oxyhemoglobin 92.6 L VBG pH ABG Sodium ABG Potassium ABG Glucose Oxyhemoglobin Sodium Potassium Chloride Carbon Dioxide BUN Creatinine Glucose POC Glucose 202 H 218 H Lactic Acid Calcium Ferritin AST Alkaline Phosphatase Magnesium Lactate Dehydrogenase Total Creatine Kinase CK-MB (CK-2) C-Reactive Protein Total Protein Albumin Troponin T HDL Cholesterol Arterial Blood Glucose Urine WBC (Auto) Urine Creatinine Urine Total Protein Phenytoin Coronavirus (PCR) Crossmatch 06/23/20 06/23/20 06/24/20 16:02 22:22 01:06 WBC RBC Hgb Hct MCHC RDW Lymph % (Auto) [place] % (Auto) Eos % (Auto) Lymph # [place] # Lymph # (Auto) [place] # (Auto) Eos # (Auto) Seg Neutrophils % Seg Neuts % (Manual) Lymphocytes % (Manual) Seg Neutrophils # Seg Neutrophils # Man Lymphocytes # (Manual) Monocytes % (Manual) Eosinophils % (Manual) Monocytes # (Manual) Eosinophils # (Manual) D-Dimer Heparin Anti-Xa Level ABG pH POC ABG pCO2 POC ABG pO2 ABG pO2 ABG HCO3 ABG O2 Saturation ABG Base Excess ABG Hemoglobin ABG Oxyhemoglobin VBG pH ABG Sodium ABG Potassium ABG Glucose Oxyhemoglobin Sodium Potassium Chloride Carbon Dioxide BUN Creatinine Glucose POC Glucose 190 H 166 H 171 H Lactic Acid Calcium Ferritin AST Alkaline Phosphatase Magnesium Lactate Dehydrogenase Total Creatine Kinase CK-MB (CK-2) C-Reactive Protein Total Protein Albumin Troponin T HDL Cholesterol Arterial Blood Glucose Urine WBC (Auto) Urine Creatinine Urine Total Protein Phenytoin Coronavirus (PCR) Crossmatch 06/24/20 06/24/20 06/24/20 04:48 05:35 11:48 WBC RBC Hgb Hct MCHC RDW Lymph % (Auto) [place] % (Auto) Eos % (Auto) Lymph # [place] # Lymph # (Auto) [place] # (Auto) Eos # (Auto) Seg Neutrophils % Seg Neuts % (Manual) Lymphocytes % (Manual) Seg Neutrophils # Seg Neutrophils # Man Lymphocytes # (Manual) Monocytes % (Manual) Eosinophils % (Manual) Monocytes # (Manual) Eosinophils # (Manual) D-Dimer Heparin Anti-Xa Level ABG pH POC ABG pCO2 POC ABG pO2 ABG pO2 ABG HCO3 ABG O2 Saturation ABG Base Excess ABG Hemoglobin ABG Oxyhemoglobin VBG pH ABG Sodium ABG Potassium ABG Glucose Oxyhemoglobin Sodium Potassium Chloride Carbon Dioxide BUN 75 H Creatinine 2.6 H Glucose 179 H POC Glucose 172 H 153 H Lactic Acid Calcium Ferritin AST Alkaline Phosphatase Magnesium Lactate Dehydrogenase Total Creatine Kinase CK-MB (CK-2) C-Reactive Protein Total Protein Albumin Troponin T HDL Cholesterol Arterial Blood Glucose Urine WBC (Auto) Urine Creatinine Urine Total Protein Phenytoin Coronavirus (PCR) Crossmatch 06/24/20 06/24/20 06/25/20 16:38 21:52 12:00 WBC RBC Hgb Hct MCHC RDW Lymph % (Auto) [place] % (Auto) Eos % (Auto) Lymph # [place] # Lymph # (Auto) [place] # (Auto) Eos # (Auto) Seg Neutrophils % Seg Neuts % (Manual) Lymphocytes % (Manual) Seg Neutrophils # Seg Neutrophils # Man Lymphocytes # (Manual) Monocytes % (Manual) Eosinophils % (Manual) Monocytes # (Manual) Eosinophils # (Manual) D-Dimer Heparin Anti-Xa Level ABG pH POC ABG pCO2 POC ABG pO2 ABG pO2 ABG HCO3 ABG O2 Saturation ABG Base Excess ABG Hemoglobin ABG Oxyhemoglobin VBG pH ABG Sodium ABG Potassium ABG Glucose Oxyhemoglobin Sodium Potassium Chloride Carbon Dioxide BUN Creatinine Glucose POC Glucose 123 H 115 H 203 H Lactic Acid Calcium Ferritin AST Alkaline Phosphatase Magnesium Lactate Dehydrogenase Total Creatine Kinase CK-MB (CK-2) C-Reactive Protein Total Protein Albumin Troponin T HDL Cholesterol Arterial Blood Glucose Urine WBC (Auto) Urine Creatinine Urine Total Protein Phenytoin Coronavirus (PCR) Crossmatch 06/25/20 06/25/20 06/25/20 15:43 16:37 23:02 WBC RBC Hgb Hct MCHC RDW Lymph % (Auto) [place] % (Auto) Eos % (Auto) Lymph # [place] # Lymph # (Auto) [place] # (Auto) Eos # (Auto) Seg Neutrophils % Seg Neuts % (Manual) Lymphocytes % (Manual) Seg Neutrophils # Seg Neutrophils # Man Lymphocytes # (Manual) Monocytes % (Manual) Eosinophils % (Manual) Monocytes # (Manual) Eosinophils # (Manual) D-Dimer Heparin Anti-Xa Level ABG pH POC ABG pCO2 POC ABG pO2 ABG pO2 ABG HCO3 ABG O2 Saturation ABG Base Excess ABG Hemoglobin ABG Oxyhemoglobin VBG pH ABG Sodium ABG Potassium ABG Glucose Oxyhemoglobin Sodium Potassium Chloride Carbon Dioxide BUN 71 H Creatinine 1.8 H Glucose 170 H POC Glucose 191 H 126 H Lactic Acid Calcium 8.2 L Ferritin AST Alkaline Phosphatase Magnesium Lactate Dehydrogenase Total Creatine Kinase CK-MB (CK-2) C-Reactive Protein Total Protein Albumin Troponin T HDL Cholesterol Arterial Blood Glucose Urine WBC (Auto) Urine Creatinine Urine Total Protein Phenytoin Coronavirus (PCR) Crossmatch 06/26/20 06/26/20 06/26/20 06:34 06:34 09:27 WBC RBC 2.41 L Hgb 6.9 L Hct 21.5 L MCHC RDW 16.7 H Lymph % (Auto) 10.9 L [place] % (Auto) 9.6 H Eos % (Auto) Lymph # 0.7 L [place] # Lymph # (Auto) [place] # (Auto) Eos # (Auto) Seg Neutrophils % 75.4 H Seg Neuts % (Manual) Lymphocytes % (Manual) Seg Neutrophils # Seg Neutrophils # Man Lymphocytes # (Manual) Monocytes % (Manual) Eosinophils % (Manual) Monocytes # (Manual) Eosinophils # (Manual) D-Dimer Heparin Anti-Xa Level ABG pH POC ABG pCO2 POC ABG pO2 ABG pO2 ABG HCO3 ABG O2 Saturation ABG Base Excess ABG Hemoglobin ABG Oxyhemoglobin VBG pH ABG Sodium ABG Potassium ABG Glucose Oxyhemoglobin Sodium Potassium Chloride Carbon Dioxide BUN 77 H Creatinine 1.9 H Glucose 190 H POC Glucose Lactic Acid Calcium Ferritin AST Alkaline Phosphatase Magnesium Lactate Dehydrogenase Total Creatine Kinase CK-MB (CK-2) C-Reactive Protein Total Protein Albumin Troponin T HDL Cholesterol Arterial Blood Glucose Urine WBC (Auto) Urine Creatinine Urine Total Protein Phenytoin Coronavirus (PCR) Crossmatch See Detail 06/26/20 06/26/20 06/26/20 12:15 16:28 17:28 WBC RBC Hgb Hct MCHC RDW Lymph % (Auto) [place] % (Auto) Eos % (Auto) Lymph # [place] # Lymph # (Auto) [place] # (Auto) Eos # (Auto) Seg Neutrophils % Seg Neuts % (Manual) Lymphocytes % (Manual) Seg Neutrophils # Seg Neutrophils # Man Lymphocytes # (Manual) Monocytes % (Manual) Eosinophils % (Manual) Monocytes # (Manual) Eosinophils # (Manual) D-Dimer Heparin Anti-Xa Level ABG pH POC ABG pCO2 POC ABG pO2 ABG pO2 ABG HCO3 ABG O2 Saturation ABG Base Excess ABG Hemoglobin ABG Oxyhemoglobin VBG pH ABG Sodium ABG Potassium ABG Glucose Oxyhemoglobin Sodium Potassium Chloride Carbon Dioxide BUN Creatinine Glucose POC Glucose 187 H 149 H 189 H Lactic Acid Calcium Ferritin AST Alkaline Phosphatase Magnesium Lactate Dehydrogenase Total Creatine Kinase CK-MB (CK-2) C-Reactive Protein Total Protein Albumin Troponin T HDL Cholesterol Arterial Blood Glucose Urine WBC (Auto) Urine Creatinine Urine Total Protein Phenytoin Coronavirus (PCR) Crossmatch 06/26/20 06/26/20 06/26/20 18:30 18:30 18:30 WBC RBC 2.87 L Hgb 8.2 L Hct 25.9 L MCHC RDW 17.8 H Lymph % (Auto) [place] % (Auto) Eos % (Auto) Lymph # [place] # Lymph # (Auto) [place] # (Auto) Eos # (Auto) Seg Neutrophils % Seg Neuts % (Manual) 83.0 H Lymphocytes % (Manual) 8.0 L Seg Neutrophils # Seg Neutrophils # Man Lymphocytes # (Manual) 0.6 L Monocytes % (Manual) Eosinophils % (Manual) Monocytes # (Manual) Eosinophils # (Manual) D-Dimer Heparin Anti-Xa Level ABG pH POC ABG pCO2 POC ABG pO2 ABG pO2 ABG HCO3 ABG O2 Saturation ABG Base Excess ABG Hemoglobin ABG Oxyhemoglobin VBG pH ABG Sodium ABG Potassium ABG Glucose Oxyhemoglobin Sodium Potassium Chloride Carbon Dioxide BUN 80 H Creatinine 2.1 H Glucose 260 H POC Glucose Lactic Acid 4.30 H* Calcium 8.3 L Ferritin AST Alkaline Phosphatase Magnesium Lactate Dehydrogenase Total Creatine Kinase CK-MB (CK-2) C-Reactive Protein Total Protein Albumin Troponin T HDL Cholesterol Arterial Blood Glucose Urine WBC (Auto) Urine Creatinine Urine Total Protein Phenytoin Coronavirus (PCR) Crossmatch 06/26/20 06/27/20 06/27/20 18:50 01:00 04:29 WBC RBC Hgb Hct MCHC RDW Lymph % (Auto) [place] % (Auto) Eos % (Auto) Lymph # [place] # Lymph # (Auto) [place] # (Auto) Eos # (Auto) Seg Neutrophils % Seg Neuts % (Manual) Lymphocytes % (Manual) Seg Neutrophils # Seg Neutrophils # Man Lymphocytes # (Manual) Monocytes % (Manual) Eosinophils % (Manual) Monocytes # (Manual) Eosinophils # (Manual) D-Dimer Heparin Anti-Xa Level ABG pH 7.296 L POC ABG pCO2 POC ABG pO2 ABG pO2 116.5 H 200.5 H ABG HCO3 28.4 H ABG O2 Saturation 99.3 H ABG Base Excess 3.7 H ABG Hemoglobin 5.6 L ABG Oxyhemoglobin VBG pH ABG Sodium ABG Potassium ABG Glucose Oxyhemoglobin Sodium Potassium Chloride Carbon Dioxide BUN Creatinine Glucose POC Glucose 123 H Lactic Acid Calcium Ferritin AST Alkaline Phosphatase Magnesium Lactate Dehydrogenase Total Creatine Kinase CK-MB (CK-2) C-Reactive Protein Total Protein Albumin Troponin T HDL Cholesterol Arterial Blood Glucose Urine WBC (Auto) Urine Creatinine Urine Total Protein Phenytoin Coronavirus (PCR) Crossmatch 06/27/20 06/27/20 06/27/20 05:00 05:00 05:00 WBC RBC 2.75 L Hgb 7.9 L Hct 24.3 L MCHC RDW 17.1 H Lymph % (Auto) 8.5 L [place] % (Auto) 12.6 H Eos % (Auto) Lymph # 0.7 L [place] # 1.0 H Lymph # (Auto) [place] # (Auto) Eos # (Auto) Seg Neutrophils % 77.5 H Seg Neuts % (Manual) Lymphocytes % (Manual) Seg Neutrophils # Seg Neutrophils # Man Lymphocytes # (Manual) Monocytes % (Manual) Eosinophils % (Manual) Monocytes # (Manual) Eosinophils # (Manual) D-Dimer Heparin Anti-Xa Level ABG pH POC ABG pCO2 POC ABG pO2 ABG pO2 ABG HCO3 ABG O2 Saturation ABG Base Excess ABG Hemoglobin ABG Oxyhemoglobin VBG pH ABG Sodium ABG Potassium ABG Glucose Oxyhemoglobin Sodium Potassium Chloride Carbon Dioxide BUN 80 H Creatinine 2.0 H Glucose 129 H POC Glucose Lactic Acid 0.60 L Calcium 7.9 L Ferritin AST Alkaline Phosphatase Magnesium Lactate Dehydrogenase Total Creatine Kinase CK-MB (CK-2) C-Reactive Protein Total Protein Albumin Troponin T HDL Cholesterol Arterial Blood Glucose Urine WBC (Auto) Urine Creatinine Urine Total Protein Phenytoin Coronavirus (PCR) Crossmatch 06/27/20 06/27/20 06/27/20 05:23 13:46 17:25 WBC RBC Hgb Hct MCHC RDW Lymph % (Auto) [place] % (Auto) Eos % (Auto) Lymph # [place] # Lymph # (Auto) [place] # (Auto) Eos # (Auto) Seg Neutrophils % Seg Neuts % (Manual) Lymphocytes % (Manual) Seg Neutrophils # Seg Neutrophils # Man Lymphocytes # (Manual) Monocytes % (Manual) Eosinophils % (Manual) Monocytes # (Manual) Eosinophils # (Manual) D-Dimer Heparin Anti-Xa Level ABG pH POC ABG pCO2 POC ABG pO2 ABG pO2 ABG HCO3 ABG O2 Saturation ABG Base Excess ABG Hemoglobin ABG Oxyhemoglobin VBG pH ABG Sodium ABG Potassium ABG Glucose Oxyhemoglobin Sodium Potassium Chloride Carbon Dioxide BUN Creatinine Glucose POC Glucose 109 H 158 H 162 H Lactic Acid Calcium Ferritin AST Alkaline Phosphatase Magnesium Lactate Dehydrogenase Total Creatine Kinase CK-MB (CK-2) C-Reactive Protein Total Protein Albumin Troponin T HDL Cholesterol Arterial Blood Glucose Urine WBC (Auto) Urine Creatinine Urine Total Protein Phenytoin Coronavirus (PCR) Crossmatch 06/27/20 06/27/20 06/28/20 18:43 23:46 04:05 WBC RBC Hgb 7.7 L Hct 22.1 L MCHC RDW Lymph % (Auto) [place] % (Auto) Eos % (Auto) Lymph # [place] # Lymph # (Auto) [place] # (Auto) Eos # (Auto) Seg Neutrophils % Seg Neuts % (Manual) Lymphocytes % (Manual) Seg Neutrophils # Seg Neutrophils # Man Lymphocytes # (Manual) Monocytes % (Manual) Eosinophils % (Manual) Monocytes # (Manual) Eosinophils # (Manual) D-Dimer Heparin Anti-Xa Level ABG pH POC ABG pCO2 POC ABG pO2 ABG pO2 102.7 H ABG HCO3 28.7 H ABG O2 Saturation ABG Base Excess 3.7 H ABG Hemoglobin ABG Oxyhemoglobin VBG pH ABG Sodium ABG Potassium ABG Glucose Oxyhemoglobin Sodium Potassium Chloride Carbon Dioxide BUN Creatinine Glucose POC Glucose 142 H Lactic Acid Calcium Ferritin AST Alkaline Phosphatase Magnesium Lactate Dehydrogenase Total Creatine Kinase CK-MB (CK-2) C-Reactive Protein Total Protein Albumin Troponin T HDL Cholesterol Arterial Blood Glucose Urine WBC (Auto) Urine Creatinine Urine Total Protein Phenytoin Coronavirus (PCR) Crossmatch 06/28/20 06/28/20 06/28/20 09:47 09:47 12:02 WBC RBC 2.53 L Hgb 7.4 L Hct 22.2 L MCHC RDW 16.8 H Lymph % (Auto) [place] % (Auto) 13.5 H Eos % (Auto) Lymph # 1.1 L [place] # 1.0 H Lymph # (Auto) [place] # (Auto) Eos # (Auto) Seg Neutrophils % Seg Neuts % (Manual) Lymphocytes % (Manual) Seg Neutrophils # Seg Neutrophils # Man Lymphocytes # (Manual) Monocytes % (Manual) Eosinophils % (Manual) Monocytes # (Manual) Eosinophils # (Manual) D-Dimer Heparin Anti-Xa Level ABG pH POC ABG pCO2 POC ABG pO2 ABG pO2 ABG HCO3 ABG O2 Saturation ABG Base Excess ABG Hemoglobin ABG Oxyhemoglobin VBG pH ABG Sodium ABG Potassium ABG Glucose Oxyhemoglobin Sodium Potassium Chloride Carbon Dioxide BUN 80 H Creatinine 1.5 H Glucose 139 H POC Glucose 169 H Lactic Acid Calcium 7.9 L Ferritin AST Alkaline Phosphatase Magnesium Lactate Dehydrogenase Total Creatine Kinase CK-MB (CK-2) C-Reactive Protein Total Protein 5.0 L Albumin 2.1 L Troponin T HDL Cholesterol Arterial Blood Glucose Urine WBC (Auto) Urine Creatinine Urine Total Protein Phenytoin Coronavirus (PCR) Crossmatch 06/28/20 06/28/20 06/28/20 12:30 12:30 17:24 WBC RBC 2.38 L Hgb 7.3 L Hct 20.9 L MCHC 35 H RDW 16.7 H Lymph % (Auto) [place] % (Auto) Eos % (Auto) Lymph # [place] # Lymph # (Auto) [place] # (Auto) Eos # (Auto) Seg Neutrophils % Seg Neuts % (Manual) Lymphocytes % (Manual) Seg Neutrophils # Seg Neutrophils # Man Lymphocytes # (Manual) Monocytes % (Manual) Eosinophils % (Manual) Monocytes # (Manual) Eosinophils # (Manual) D-Dimer Heparin Anti-Xa Level ABG pH POC ABG pCO2 POC ABG pO2 ABG pO2 ABG HCO3 ABG O2 Saturation ABG Base Excess ABG Hemoglobin ABG Oxyhemoglobin VBG pH ABG Sodium ABG Potassium ABG Glucose Oxyhemoglobin Sodium Potassium Chloride Carbon Dioxide BUN 74 H Creatinine 1.5 H Glucose 143 H POC Glucose 173 H Lactic Acid Calcium 7.5 L Ferritin AST Alkaline Phosphatase Magnesium Lactate Dehydrogenase Total Creatine Kinase CK-MB (CK-2) C-Reactive Protein Total Protein Albumin Troponin T HDL Cholesterol Arterial Blood Glucose Urine WBC (Auto) Urine Creatinine Urine Total Protein Phenytoin Coronavirus (PCR) Crossmatch 06/29/20 06/29/20 06/29/20 00:02 03:54 04:38 WBC RBC 2.55 L Hgb 7.3 L Hct 22.4 L MCHC RDW 16.4 H Lymph % (Auto) 13.3 L [place] % (Auto) 12.5 H Eos % (Auto) Lymph # 1.1 L [place] # 1.0 H Lymph # (Auto) [place] # (Auto) Eos # (Auto) Seg Neutrophils % Seg Neuts % (Manual) Lymphocytes % (Manual) Seg Neutrophils # Seg Neutrophils # Man Lymphocytes # (Manual) Monocytes % (Manual) Eosinophils % (Manual) Monocytes # (Manual) Eosinophils # (Manual) D-Dimer Heparin Anti-Xa Level ABG pH POC ABG pCO2 POC ABG pO2 ABG pO2 ABG HCO3 26.9 H ABG O2 Saturation ABG Base Excess ABG Hemoglobin 6.9 L ABG Oxyhemoglobin VBG pH ABG Sodium ABG Potassium ABG Glucose Oxyhemoglobin Sodium Potassium Chloride Carbon Dioxide BUN Creatinine Glucose POC Glucose 142 H Lactic Acid Calcium Ferritin AST Alkaline Phosphatase Magnesium Lactate Dehydrogenase Total Creatine Kinase CK-MB (CK-2) C-Reactive Protein Total Protein Albumin Troponin T HDL Cholesterol Arterial Blood Glucose Urine WBC (Auto) Urine Creatinine Urine Total Protein Phenytoin Coronavirus (PCR) Crossmatch 06/29/20 06/29/20 06/29/20 04:38 05:38 12:25 WBC RBC Hgb Hct MCHC RDW Lymph % (Auto) [place] % (Auto) Eos % (Auto) Lymph # [place] # Lymph # (Auto) [place] # (Auto) Eos # (Auto) Seg Neutrophils % Seg Neuts % (Manual) Lymphocytes % (Manual) Seg Neutrophils # Seg Neutrophils # Man Lymphocytes # (Manual) Monocytes % (Manual) Eosinophils % (Manual) Monocytes # (Manual) Eosinophils # (Manual) D-Dimer Heparin Anti-Xa Level ABG pH POC ABG pCO2 POC ABG pO2 ABG pO2 ABG HCO3 ABG O2 Saturation ABG Base Excess ABG Hemoglobin ABG Oxyhemoglobin VBG pH ABG Sodium ABG Potassium ABG Glucose Oxyhemoglobin Sodium Potassium Chloride 107.8 H Carbon Dioxide BUN 72 H Creatinine 1.4 H Glucose 127 H POC Glucose 122 H 138 H Lactic Acid Calcium 7.4 L Ferritin AST Alkaline Phosphatase Magnesium Lactate Dehydrogenase Total Creatine Kinase CK-MB (CK-2) C-Reactive Protein Total Protein Albumin Troponin T HDL Cholesterol Arterial Blood Glucose Urine WBC (Auto) Urine Creatinine Urine Total Protein Phenytoin Coronavirus (PCR) Crossmatch 06/29/20 06/29/20 06/29/20 14:45 14:45 14:45 WBC RBC Hgb Hct MCHC RDW Lymph % (Auto) [place] % (Auto) Eos % (Auto) Lymph # [place] # Lymph # (Auto) [place] # (Auto) Eos # (Auto) Seg Neutrophils % Seg Neuts % (Manual) Lymphocytes % (Manual) Seg Neutrophils # Seg Neutrophils # Man Lymphocytes # (Manual) Monocytes % (Manual) Eosinophils % (Manual) Monocytes # (Manual) Eosinophils # (Manual) D-Dimer 2310.15 H Heparin Anti-Xa Level ABG pH POC ABG pCO2 POC ABG pO2 ABG pO2 ABG HCO3 ABG O2 Saturation ABG Base Excess ABG Hemoglobin ABG Oxyhemoglobin VBG pH ABG Sodium ABG Potassium ABG Glucose Oxyhemoglobin Sodium Potassium Chloride Carbon Dioxide BUN Creatinine Glucose POC Glucose Lactic Acid Calcium Ferritin 223.6 H AST Alkaline Phosphatase Magnesium Lactate Dehydrogenase 367 H Total Creatine Kinase CK-MB (CK-2) C-Reactive Protein 3.60 H Total Protein Albumin Troponin T HDL Cholesterol Arterial Blood Glucose Urine WBC (Auto) Urine Creatinine Urine Total Protein Phenytoin Coronavirus (PCR) Crossmatch 0906/29/20 06/29/20 18:27 23:35 Unknown WBC RBC Hgb Hct MCHC RDW Lymph % (Auto) [place] % (Auto) Eos % (Auto) Lymph # [place] # Lymph # (Auto) [place] # (Auto) Eos # (Auto) Seg Neutrophils % Seg Neuts % (Manual) Lymphocytes % (Manual) Seg Neutrophils # Seg Neutrophils # Man Lymphocytes # (Manual) Monocytes % (Manual) Eosinophils % (Manual) Monocytes # (Manual) Eosinophils # (Manual) D-Dimer Heparin Anti-Xa Level ABG pH POC ABG pCO2 POC ABG pO2 ABG pO2 ABG HCO3 ABG O2 Saturation ABG Base Excess ABG Hemoglobin ABG Oxyhemoglobin VBG pH ABG Sodium ABG Potassium ABG Glucose Oxyhemoglobin Sodium Potassium Chloride Carbon Dioxide BUN Creatinine Glucose POC Glucose 112 H 140 H Lactic Acid Calcium Ferritin AST Alkaline Phosphatase Magnesium Lactate Dehydrogenase Total Creatine Kinase CK-MB (CK-2) C-Reactive Protein Total Protein Albumin Troponin T HDL Cholesterol Arterial Blood Glucose Urine WBC (Auto) Urine Creatinine Urine Total Protein Phenytoin Coronavirus (PCR) Positive A Crossmatch 06/30/20 06/30/20 06/30/20 04:10 04:10 06:09 WBC RBC 2.44 L Hgb 7.1 L Hct 21.5 L MCHC RDW 16.6 H Lymph % (Auto) 11.0 L [place] % (Auto) 10.8 H Eos % (Auto) Lymph # 0.9 L [place] # 0.9 H Lymph # (Auto) [place] # (Auto) Eos # (Auto) Seg Neutrophils % 73.7 H Seg Neuts % (Manual) Lymphocytes % (Manual) Seg Neutrophils # Seg Neutrophils # Man Lymphocytes # (Manual) Monocytes % (Manual) Eosinophils % (Manual) Monocytes # (Manual) Eosinophils # (Manual) D-Dimer Heparin Anti-Xa Level ABG pH POC ABG pCO2 POC ABG pO2 ABG pO2 ABG HCO3 ABG O2 Saturation ABG Base Excess ABG Hemoglobin ABG Oxyhemoglobin VBG pH ABG Sodium ABG Potassium ABG Glucose Oxyhemoglobin Sodium Potassium Chloride 109.1 H Carbon Dioxide BUN 74 H Creatinine 1.3 H Glucose 191 H POC Glucose 187 H Lactic Acid Calcium 7.8 L Ferritin AST Alkaline Phosphatase Magnesium Lactate Dehydrogenase Total Creatine Kinase CK-MB (CK-2) C-Reactive Protein Total Protein Albumin Troponin T HDL Cholesterol Arterial Blood Glucose Urine WBC (Auto) Urine Creatinine Urine Total Protein Phenytoin Coronavirus (PCR) Crossmatch 06/30/20 06/30/20 06/30/20 12:04 17:43 23:41 WBC RBC Hgb Hct MCHC RDW Lymph % (Auto) [place] % (Auto) Eos % (Auto) Lymph # [place] # Lymph # (Auto) [place] # (Auto) Eos # (Auto) Seg Neutrophils % Seg Neuts % (Manual) Lymphocytes % (Manual) Seg Neutrophils # Seg Neutrophils # Man Lymphocytes # (Manual) Monocytes % (Manual) Eosinophils % (Manual) Monocytes # (Manual) Eosinophils # (Manual) D-Dimer Heparin Anti-Xa Level ABG pH POC ABG pCO2 POC ABG pO2 ABG pO2 ABG HCO3 ABG O2 Saturation ABG Base Excess ABG Hemoglobin ABG Oxyhemoglobin VBG pH ABG Sodium ABG Potassium ABG Glucose Oxyhemoglobin Sodium Potassium Chloride Carbon Dioxide BUN Creatinine Glucose POC Glucose 112 H 177 H 143 H Lactic Acid Calcium Ferritin AST Alkaline Phosphatase Magnesium Lactate Dehydrogenase Total Creatine Kinase CK-MB (CK-2) C-Reactive Protein Total Protein Albumin Troponin T HDL Cholesterol Arterial Blood Glucose Urine WBC (Auto) Urine Creatinine Urine Total Protein Phenytoin Coronavirus (PCR) Crossmatch 07/01/20 07/01/20 07/01/20 05:02 05:52 06:01 WBC 12.6 H RBC 2.95 L Hgb 8.2 L Hct 26.0 L MCHC RDW 16.9 H Lymph % (Auto) [place] % (Auto) Eos % (Auto) Lymph # [place] # Lymph # (Auto) [place] # (Auto) Eos # (Auto) Seg Neutrophils % Seg Neuts % (Manual) Lymphocytes % (Manual) Seg Neutrophils # Seg Neutrophils # Man 8.6 H Lymphocytes # (Manual) Monocytes % (Manual) Eosinophils % (Manual) 5.0 H Monocytes # (Manual) Eosinophils # (Manual) 0.6 H D-Dimer Heparin Anti-Xa Level ABG pH POC ABG pCO2 POC ABG pO2 ABG pO2 ABG HCO3 ABG O2 Saturation ABG Base Excess ABG Hemoglobin 8.2 L ABG Oxyhemoglobin VBG pH ABG Sodium ABG Potassium ABG Glucose Oxyhemoglobin Sodium Potassium Chloride Carbon Dioxide BUN Creatinine Glucose POC Glucose 129 H Lactic Acid Calcium Ferritin AST Alkaline Phosphatase Magnesium Lactate Dehydrogenase Total Creatine Kinase CK-MB (CK-2) C-Reactive Protein Total Protein Albumin Troponin T HDL Cholesterol Arterial Blood Glucose Urine WBC (Auto) Urine Creatinine Urine Total Protein Phenytoin Coronavirus (PCR) Crossmatch 07/01/20 07/01/20 07/01/20 06:01 06:01 06:08 WBC RBC Hgb Hct MCHC RDW Lymph % (Auto) [place] % (Auto) Eos % (Auto) Lymph # [place] # Lymph # (Auto) [place] # (Auto) Eos # (Auto) Seg Neutrophils % Seg Neuts % (Manual) Lymphocytes % (Manual) Seg Neutrophils # Seg Neutrophils # Man Lymphocytes # (Manual) Monocytes % (Manual) Eosinophils % (Manual) Monocytes # (Manual) Eosinophils # (Manual) D-Dimer Heparin Anti-Xa Level ABG pH POC ABG pCO2 POC ABG pO2 ABG pO2 ABG HCO3 ABG O2 Saturation ABG Base Excess ABG Hemoglobin ABG Oxyhemoglobin VBG pH ABG Sodium ABG Potassium ABG Glucose Oxyhemoglobin Sodium 147 H Potassium Chloride 108.0 H Carbon Dioxide BUN 71 H Creatinine 1.3 H Glucose 193 H POC Glucose 192 H Lactic Acid Calcium 8.1 L Ferritin AST Alkaline Phosphatase Magnesium Lactate Dehydrogenase Total Creatine Kinase 300 H CK-MB (CK-2) C-Reactive Protein Total Protein Albumin Troponin T 0.067 H HDL Cholesterol 61 H Arterial Blood Glucose Urine WBC (Auto) Urine Creatinine Urine Total Protein Phenytoin Coronavirus (PCR) Crossmatch 07/01/20 07/01/20 07/02/20 12:23 17:40 00:18 WBC RBC Hgb Hct MCHC RDW Lymph % (Auto) [place] % (Auto) Eos % (Auto) Lymph # [place] # Lymph # (Auto) [place] # (Auto) Eos # (Auto) Seg Neutrophils % Seg Neuts % (Manual) Lymphocytes % (Manual) Seg Neutrophils # Seg Neutrophils # Man Lymphocytes # (Manual) Monocytes % (Manual) Eosinophils % (Manual) Monocytes # (Manual) Eosinophils # (Manual) D-Dimer Heparin Anti-Xa Level ABG pH POC ABG pCO2 POC ABG pO2 ABG pO2 ABG HCO3 ABG O2 Saturation ABG Base Excess ABG Hemoglobin ABG Oxyhemoglobin VBG pH ABG Sodium ABG Potassium ABG Glucose Oxyhemoglobin Sodium Potassium Chloride Carbon Dioxide BUN Creatinine Glucose POC Glucose 111 H 135 H 145 H Lactic Acid Calcium Ferritin AST Alkaline Phosphatase Magnesium Lactate Dehydrogenase Total Creatine Kinase CK-MB (CK-2) C-Reactive Protein Total Protein Albumin Troponin T HDL Cholesterol Arterial Blood Glucose Urine WBC (Auto) Urine Creatinine Urine Total Protein Phenytoin Coronavirus (PCR) Crossmatch 07/02/20 07/02/20 07/02/20 04:11 04:23 05:54 WBC RBC Hgb Hct MCHC RDW Lymph % (Auto) [place] % (Auto) Eos % (Auto) Lymph # [place] # Lymph # (Auto) [place] # (Auto) Eos # (Auto) Seg Neutrophils % Seg Neuts % (Manual) Lymphocytes % (Manual) Seg Neutrophils # Seg Neutrophils # Man Lymphocytes # (Manual) Monocytes % (Manual) Eosinophils % (Manual) Monocytes # (Manual) Eosinophils # (Manual) D-Dimer Heparin Anti-Xa Level ABG pH POC ABG pCO2 POC ABG pO2 ABG pO2 ABG HCO3 ABG O2 Saturation ABG Base Excess ABG Hemoglobin 5.4 L ABG Oxyhemoglobin VBG pH ABG Sodium ABG Potassium ABG Glucose Oxyhemoglobin Sodium Potassium Chloride 108.6 H Carbon Dioxide BUN 72 H Creatinine Glucose 112 H POC Glucose 137 H Lactic Acid Calcium 7.8 L Ferritin AST Alkaline Phosphatase Magnesium Lactate Dehydrogenase Total Creatine Kinase CK-MB (CK-2) C-Reactive Protein Total Protein Albumin Troponin T HDL Cholesterol Arterial Blood Glucose Urine WBC (Auto) Urine Creatinine Urine Total Protein Phenytoin Coronavirus (PCR) Crossmatch 07/02/20 07/02/20 07/02/20 11:38 18:04 23:59 WBC RBC Hgb Hct MCHC RDW Lymph % (Auto) [place] % (Auto) Eos % (Auto) Lymph # [place] # Lymph # (Auto) [place] # (Auto) Eos # (Auto) Seg Neutrophils % Seg Neuts % (Manual) Lymphocytes % (Manual) Seg Neutrophils # Seg Neutrophils # Man Lymphocytes # (Manual) Monocytes % (Manual) Eosinophils % (Manual) Monocytes # (Manual) Eosinophils # (Manual) D-Dimer Heparin Anti-Xa Level ABG pH POC ABG pCO2 POC ABG pO2 ABG pO2 ABG HCO3 ABG O2 Saturation ABG Base Excess ABG Hemoglobin ABG Oxyhemoglobin VBG pH ABG Sodium ABG Potassium ABG Glucose Oxyhemoglobin Sodium Potassium Chloride Carbon Dioxide BUN Creatinine Glucose POC Glucose 128 H 135 H 156 H Lactic Acid Calcium Ferritin AST Alkaline Phosphatase Magnesium Lactate Dehydrogenase Total Creatine Kinase CK-MB (CK-2) C-Reactive Protein Total Protein Albumin Troponin T HDL Cholesterol Arterial Blood Glucose Urine WBC (Auto) Urine Creatinine Urine Total Protein Phenytoin Coronavirus (PCR) Crossmatch 07/03/20 07/03/20 07/03/20 03:49 06:00 11:31 WBC RBC Hgb Hct MCHC RDW Lymph % (Auto) [place] % (Auto) Eos % (Auto) Lymph # [place] # Lymph # (Auto) [place] # (Auto) Eos # (Auto) Seg Neutrophils % Seg Neuts % (Manual) Lymphocytes % (Manual) Seg Neutrophils # Seg Neutrophils # Man Lymphocytes # (Manual) Monocytes % (Manual) Eosinophils % (Manual) Monocytes # (Manual) Eosinophils # (Manual) D-Dimer Heparin Anti-Xa Level ABG pH POC ABG pCO2 POC ABG pO2 ABG pO2 121.0 H ABG HCO3 ABG O2 Saturation ABG Base Excess ABG Hemoglobin 8.5 L ABG Oxyhemoglobin VBG pH ABG Sodium ABG Potassium ABG Glucose Oxyhemoglobin Sodium Potassium Chloride Carbon Dioxide BUN Creatinine Glucose POC Glucose 135 H 141 H Lactic Acid Calcium Ferritin AST Alkaline Phosphatase Magnesium Lactate Dehydrogenase Total Creatine Kinase CK-MB (CK-2) C-Reactive Protein Total Protein Albumin Troponin T HDL Cholesterol Arterial Blood Glucose Urine WBC (Auto) Urine Creatinine Urine Total Protein Phenytoin Coronavirus (PCR) Crossmatch 07/03/20 07/03/20 07/03/20 16:00 16:07 17:40 WBC RBC Hgb Hct MCHC RDW Lymph % (Auto) [place] % (Auto) Eos % (Auto) Lymph # [place] # Lymph # (Auto) [place] # (Auto) Eos # (Auto) Seg Neutrophils % Seg Neuts % (Manual) Lymphocytes % (Manual) Seg Neutrophils # Seg Neutrophils # Man Lymphocytes # (Manual) Monocytes % (Manual) Eosinophils % (Manual) Monocytes # (Manual) Eosinophils # (Manual) D-Dimer Heparin Anti-Xa Level ABG pH 7.271 L POC ABG pCO2 POC ABG pO2 ABG pO2 126.9 H ABG HCO3 ABG O2 Saturation ABG Base Excess ABG Hemoglobin 8.2 L 8.1 L ABG Oxyhemoglobin VBG pH ABG Sodium 130.3 L ABG Potassium 4.9 H ABG Glucose 163 H Oxyhemoglobin Sodium Potassium Chloride Carbon Dioxide BUN Creatinine Glucose POC Glucose 120 H Lactic Acid Calcium Ferritin AST Alkaline Phosphatase Magnesium Lactate Dehydrogenase Total Creatine Kinase CK-MB (CK-2) C-Reactive Protein Total Protein Albumin Troponin T HDL Cholesterol Arterial Blood Glucose 163 H Urine WBC (Auto) Urine Creatinine Urine Total Protein Phenytoin Coronavirus (PCR) Crossmatch 07/04/20 07/04/20 07/04/20 05:49 11:54 18:00 WBC RBC Hgb Hct MCHC RDW Lymph % (Auto) [place] % (Auto) Eos % (Auto) Lymph # [place] # Lymph # (Auto) [place] # (Auto) Eos # (Auto) Seg Neutrophils % Seg Neuts % (Manual) Lymphocytes % (Manual) Seg Neutrophils # Seg Neutrophils # Man Lymphocytes # (Manual) Monocytes % (Manual) Eosinophils % (Manual) Monocytes # (Manual) Eosinophils # (Manual) D-Dimer Heparin Anti-Xa Level ABG pH POC ABG pCO2 POC ABG pO2 ABG pO2 ABG HCO3 ABG O2 Saturation ABG Base Excess ABG Hemoglobin ABG Oxyhemoglobin VBG pH ABG Sodium ABG Potassium ABG Glucose Oxyhemoglobin Sodium Potassium Chloride Carbon Dioxide BUN Creatinine Glucose POC Glucose 128 H 168 H 133 H Lactic Acid Calcium Ferritin AST Alkaline Phosphatase Magnesium Lactate Dehydrogenase Total Creatine Kinase CK-MB (CK-2) C-Reactive Protein Total Protein Albumin Troponin T HDL Cholesterol Arterial Blood Glucose Urine WBC (Auto) Urine Creatinine Urine Total Protein Phenytoin Coronavirus (PCR) Crossmatch 07/05/20 07/05/20 07/05/20 00:07 01:12 02:30 WBC RBC 2.35 L Hgb 6.9 L Hct 21.1 L MCHC RDW 16.8 H Lymph % (Auto) [place] % (Auto) Eos % (Auto) Lymph # [place] # Lymph # (Auto) [place] # (Auto) Eos # (Auto) Seg Neutrophils % Seg Neuts % (Manual) 74.0 H Lymphocytes % (Manual) 12.0 L Seg Neutrophils # Seg Neutrophils # Man 8.0 H Lymphocytes # (Manual) Monocytes % (Manual) 9.0 H Eosinophils % (Manual) Monocytes # (Manual) 1.0 H Eosinophils # (Manual) D-Dimer Heparin Anti-Xa Level ABG pH POC ABG pCO2 POC ABG pO2 ABG pO2 ABG HCO3 ABG O2 Saturation ABG Base Excess ABG Hemoglobin ABG Oxyhemoglobin VBG pH ABG Sodium ABG Potassium ABG Glucose Oxyhemoglobin Sodium Potassium Chloride Carbon Dioxide BUN Creatinine Glucose POC Glucose 121 H Lactic Acid Calcium Ferritin AST Alkaline Phosphatase Magnesium Lactate Dehydrogenase Total Creatine Kinase CK-MB (CK-2) C-Reactive Protein Total Protein Albumin Troponin T HDL Cholesterol Arterial Blood Glucose Urine WBC (Auto) Urine Creatinine Urine Total Protein Phenytoin Coronavirus (PCR) Crossmatch See Detail 07/05/20 07/05/20 07/05/20 12:09 13:05 18:04 WBC RBC Hgb Hct MCHC RDW Lymph % (Auto) [place] % (Auto) Eos % (Auto) Lymph # [place] # Lymph # (Auto) [place] # (Auto) Eos # (Auto) Seg Neutrophils % Seg Neuts % (Manual) Lymphocytes % (Manual) Seg Neutrophils # Seg Neutrophils # Man Lymphocytes # (Manual) Monocytes % (Manual) Eosinophils % (Manual) Monocytes # (Manual) Eosinophils # (Manual) D-Dimer Heparin Anti-Xa Level ABG pH 7.32 L POC ABG pCO2 POC ABG pO2 ABG pO2 78.3 L ABG HCO3 ABG O2 Saturation ABG Base Excess -2.6 L ABG Hemoglobin 7.3 L ABG Oxyhemoglobin VBG pH ABG Sodium ABG Potassium ABG Glucose Oxyhemoglobin Sodium Potassium Chloride Carbon Dioxide BUN Creatinine Glucose POC Glucose 132 H 160 H Lactic Acid Calcium Ferritin AST Alkaline Phosphatase Magnesium Lactate Dehydrogenase Total Creatine Kinase CK-MB (CK-2) C-Reactive Protein Total Protein Albumin Troponin T HDL Cholesterol Arterial Blood Glucose Urine WBC (Auto) Urine Creatinine Urine Total Protein Phenytoin Coronavirus (PCR) Crossmatch 07/05/20 07/05/20 07/05/20 23:13 23:13 23:43 WBC RBC 2.57 L Hgb 7.7 L Hct 23.0 L MCHC RDW 16.9 H Lymph % (Auto) [place] % (Auto) Eos % (Auto) Lymph # [place] # Lymph # (Auto) [place] # (Auto) Eos # (Auto) Seg Neutrophils % Seg Neuts % (Manual) Lymphocytes % (Manual) Seg Neutrophils # Seg Neutrophils # Man Lymphocytes # (Manual) Monocytes % (Manual) Eosinophils % (Manual) Monocytes # (Manual) Eosinophils # (Manual) D-Dimer Heparin Anti-Xa Level ABG pH POC ABG pCO2 POC ABG pO2 ABG pO2 ABG HCO3 ABG O2 Saturation ABG Base Excess ABG Hemoglobin ABG Oxyhemoglobin VBG pH ABG Sodium ABG Potassium ABG Glucose Oxyhemoglobin Sodium Potassium Chloride Carbon Dioxide 20 L BUN 80 H Creatinine 2.4 H D Glucose 124 H POC Glucose 121 H Lactic Acid Calcium 7.6 L Ferritin AST Alkaline Phosphatase Magnesium Lactate Dehydrogenase Total Creatine Kinase CK-MB (CK-2) C-Reactive Protein Total Protein Albumin Troponin T HDL Cholesterol Arterial Blood Glucose Urine WBC (Auto) Urine Creatinine Urine Total Protein Phenytoin Coronavirus (PCR) Crossmatch 07/06/20 07/06/20 07/06/20 13:20 14:48 17:28 WBC RBC Hgb Hct MCHC RDW Lymph % (Auto) [place] % (Auto) Eos % (Auto) Lymph # [place] # Lymph # (Auto) [place] # (Auto) Eos # (Auto) Seg Neutrophils % Seg Neuts % (Manual) Lymphocytes % (Manual) Seg Neutrophils # Seg Neutrophils # Man Lymphocytes # (Manual) Monocytes % (Manual) Eosinophils % (Manual) Monocytes # (Manual) Eosinophils # (Manual) D-Dimer Heparin Anti-Xa Level ABG pH POC ABG pCO2 POC ABG pO2 ABG pO2 ABG HCO3 ABG O2 Saturation ABG Base Excess ABG Hemoglobin ABG Oxyhemoglobin VBG pH ABG Sodium ABG Potassium ABG Glucose Oxyhemoglobin Sodium 136 L Potassium 5.5 H Chloride Carbon Dioxide 19 L BUN 82 H Creatinine 2.5 H Glucose 113 H POC Glucose 133 H Lactic Acid Calcium 7.7 L Ferritin AST Alkaline Phosphatase Magnesium Lactate Dehydrogenase Total Creatine Kinase CK-MB (CK-2) C-Reactive Protein Total Protein Albumin Troponin T HDL Cholesterol Arterial Blood Glucose Urine WBC (Auto) Urine Creatinine 33.3 H Urine Total Protein Phenytoin Coronavirus (PCR) Crossmatch 07/07/20 07/07/20 07/07/20 00:12 04:15 04:15 WBC RBC 2.28 L Hgb 6.8 L Hct 20.7 L MCHC RDW 16.8 H Lymph % (Auto) [place] % (Auto) Eos % (Auto) Lymph # [place] # Lymph # (Auto) [place] # (Auto) Eos # (Auto) Seg Neutrophils % Seg Neuts % (Manual) Lymphocytes % (Manual) 13.0 L Seg Neutrophils # Seg Neutrophils # Man Lymphocytes # (Manual) 1.0 L Monocytes % (Manual) 11.0 H Eosinophils % (Manual) Monocytes # (Manual) 0.9 H Eosinophils # (Manual) D-Dimer Heparin Anti-Xa Level ABG pH POC ABG pCO2 POC ABG pO2 ABG pO2 ABG HCO3 ABG O2 Saturation ABG Base Excess ABG Hemoglobin ABG Oxyhemoglobin VBG pH ABG Sodium ABG Potassium ABG Glucose Oxyhemoglobin Sodium Potassium Chloride Carbon Dioxide BUN Creatinine Glucose POC Glucose 154 H Lactic Acid Calcium Ferritin AST Alkaline Phosphatase Magnesium 2.50 H Lactate Dehydrogenase Total Creatine Kinase CK-MB (CK-2) C-Reactive Protein Total Protein Albumin Troponin T HDL Cholesterol Arterial Blood Glucose Urine WBC (Auto) Urine Creatinine Urine Total Protein Phenytoin Coronavirus (PCR) Crossmatch 07/07/20 07/07/20 07/07/20 05:31 12:31 13:22 WBC RBC Hgb Hct MCHC RDW Lymph % (Auto) [place] % (Auto) Eos % (Auto) Lymph # [place] # Lymph # (Auto) [place] # (Auto) Eos # (Auto) Seg Neutrophils % Seg Neuts % (Manual) Lymphocytes % (Manual) Seg Neutrophils # Seg Neutrophils # Man Lymphocytes # (Manual) Monocytes % (Manual) Eosinophils % (Manual) Monocytes # (Manual) Eosinophils # (Manual) D-Dimer Heparin Anti-Xa Level ABG pH POC ABG pCO2 POC ABG pO2 ABG pO2 ABG HCO3 ABG O2 Saturation ABG Base Excess ABG Hemoglobin ABG Oxyhemoglobin VBG pH ABG Sodium ABG Potassium ABG Glucose Oxyhemoglobin Sodium Potassium 5.6 H Chloride Carbon Dioxide BUN 86 H Creatinine 2.9 H Glucose 127 H POC Glucose 135 H 131 H Lactic Acid Calcium 8.1 L Ferritin AST Alkaline Phosphatase Magnesium Lactate Dehydrogenase Total Creatine Kinase CK-MB (CK-2) C-Reactive Protein Total Protein Albumin Troponin T HDL Cholesterol Arterial Blood Glucose Urine WBC (Auto) Urine Creatinine Urine Total Protein Phenytoin Coronavirus (PCR) Crossmatch 07/07/20 07/07/20 07/08/20 17:55 23:33 04:14 WBC RBC 3.28 L Hgb 9.7 L Hct 28.9 L D MCHC RDW 16.4 H Lymph % (Auto) 10.3 L [place] % (Auto) 10.0 H Eos % (Auto) Lymph # [place] # Lymph # (Auto) 1.1 L [place] # (Auto) 1.1 H Eos # (Auto) Seg Neutrophils % 77.2 H Seg Neuts % (Manual) Lymphocytes % (Manual) Seg Neutrophils # 8.2 H Seg Neutrophils # Man Lymphocytes # (Manual) Monocytes % (Manual) Eosinophils % (Manual) Monocytes # (Manual) Eosinophils # (Manual) D-Dimer Heparin Anti-Xa Level ABG pH POC ABG pCO2 POC ABG pO2 ABG pO2 ABG HCO3 ABG O2 Saturation ABG Base Excess ABG Hemoglobin ABG Oxyhemoglobin VBG pH ABG Sodium ABG Potassium ABG Glucose Oxyhemoglobin Sodium Potassium Chloride Carbon Dioxide BUN Creatinine Glucose POC Glucose 136 H 159 H Lactic Acid Calcium Ferritin AST Alkaline Phosphatase Magnesium Lactate Dehydrogenase Total Creatine Kinase CK-MB (CK-2) C-Reactive Protein Total Protein Albumin Troponin T HDL Cholesterol Arterial Blood Glucose Urine WBC (Auto) Urine Creatinine Urine Total Protein Phenytoin Coronavirus (PCR) Crossmatch 07/08/20 07/08/20 07/08/20 04:14 12:10 18:10 WBC RBC Hgb Hct MCHC RDW Lymph % (Auto) [place] % (Auto) Eos % (Auto) Lymph # [place] # Lymph # (Auto) [place] # (Auto) Eos # (Auto) Seg Neutrophils % Seg Neuts % (Manual) Lymphocytes % (Manual) Seg Neutrophils # Seg Neutrophils # Man Lymphocytes # (Manual) Monocytes % (Manual) Eosinophils % (Manual) Monocytes # (Manual) Eosinophils # (Manual) D-Dimer Heparin Anti-Xa Level ABG pH POC ABG pCO2 POC ABG pO2 ABG pO2 ABG HCO3 ABG O2 Saturation ABG Base Excess ABG Hemoglobin ABG Oxyhemoglobin VBG pH ABG Sodium ABG Potassium ABG Glucose Oxyhemoglobin Sodium 136 L Potassium Chloride Carbon Dioxide BUN 84 H Creatinine 2.8 H Glucose 109 H POC Glucose 108 H 125 H Lactic Acid Calcium 8.1 L Ferritin AST Alkaline Phosphatase Magnesium 2.50 H Lactate Dehydrogenase Total Creatine Kinase CK-MB (CK-2) C-Reactive Protein Total Protein Albumin Troponin T HDL Cholesterol Arterial Blood Glucose Urine WBC (Auto) Urine Creatinine Urine Total Protein Phenytoin Coronavirus (PCR) Crossmatch 07/08/20 07/09/20 07/09/20 23:50 05:39 11:57 WBC RBC Hgb Hct MCHC RDW Lymph % (Auto) [place] % (Auto) Eos % (Auto) Lymph # [place] # Lymph # (Auto) [place] # (Auto) Eos # (Auto) Seg Neutrophils % Seg Neuts % (Manual) Lymphocytes % (Manual) Seg Neutrophils # Seg Neutrophils # Man Lymphocytes # (Manual) Monocytes % (Manual) Eosinophils % (Manual) Monocytes # (Manual) Eosinophils # (Manual) D-Dimer Heparin Anti-Xa Level ABG pH POC ABG pCO2 POC ABG pO2 ABG pO2 ABG HCO3 ABG O2 Saturation ABG Base Excess ABG Hemoglobin ABG Oxyhemoglobin VBG pH ABG Sodium ABG Potassium ABG Glucose Oxyhemoglobin Sodium Potassium Chloride Carbon Dioxide BUN Creatinine Glucose POC Glucose 141 H 121 H 123 H Lactic Acid Calcium Ferritin AST Alkaline Phosphatase Magnesium Lactate Dehydrogenase Total Creatine Kinase CK-MB (CK-2) C-Reactive Protein Total Protein Albumin Troponin T HDL Cholesterol Arterial Blood Glucose Urine WBC (Auto) Urine Creatinine Urine Total Protein Phenytoin Coronavirus (PCR) Crossmatch 07/09/20 07/10/20 07/10/20 17:56 00:29 05:50 WBC RBC Hgb Hct MCHC RDW Lymph % (Auto) [place] % (Auto) Eos % (Auto) Lymph # [place] # Lymph # (Auto) [place] # (Auto) Eos # (Auto) Seg Neutrophils % Seg Neuts % (Manual) Lymphocytes % (Manual) Seg Neutrophils # Seg Neutrophils # Man Lymphocytes # (Manual) Monocytes % (Manual) Eosinophils % (Manual) Monocytes # (Manual) Eosinophils # (Manual) D-Dimer Heparin Anti-Xa Level ABG pH POC ABG pCO2 POC ABG pO2 ABG pO2 ABG HCO3 ABG O2 Saturation ABG Base Excess ABG Hemoglobin ABG Oxyhemoglobin VBG pH ABG Sodium ABG Potassium ABG Glucose Oxyhemoglobin Sodium Potassium Chloride Carbon Dioxide BUN Creatinine Glucose POC Glucose 119 H 122 H 124 H Lactic Acid Calcium Ferritin AST Alkaline Phosphatase Magnesium Lactate Dehydrogenase Total Creatine Kinase CK-MB (CK-2) C-Reactive Protein Total Protein Albumin Troponin T HDL Cholesterol Arterial Blood Glucose Urine WBC (Auto) Urine Creatinine Urine Total Protein Phenytoin Coronavirus (PCR) Crossmatch 07/10/20 07/10/20 07/10/20 10:41 10:41 12:25 WBC RBC 3.11 L Hgb 9.2 L Hct 27.6 L MCHC RDW 16.6 H Lymph % (Auto) [place] % (Auto) Eos % (Auto) Lymph # [place] # Lymph # (Auto) [place] # (Auto) Eos # (Auto) Seg Neutrophils % Seg Neuts % (Manual) 78.0 H Lymphocytes % (Manual) 11.0 L Seg Neutrophils # Seg Neutrophils # Man Lymphocytes # (Manual) 1.0 L Monocytes % (Manual) Eosinophils % (Manual) Monocytes # (Manual) Eosinophils # (Manual) D-Dimer Heparin Anti-Xa Level ABG pH POC ABG pCO2 POC ABG pO2 ABG pO2 ABG HCO3 ABG O2 Saturation ABG Base Excess ABG Hemoglobin ABG Oxyhemoglobin VBG pH ABG Sodium ABG Potassium ABG Glucose Oxyhemoglobin Sodium Potassium Chloride Carbon Dioxide BUN 85 H Creatinine 2.5 H Glucose 133 H POC Glucose 131 H Lactic Acid Calcium Ferritin AST Alkaline Phosphatase 131 H Magnesium Lactate Dehydrogenase Total Creatine Kinase CK-MB (CK-2) C-Reactive Protein Total Protein 5.2 L Albumin 1.6 L Troponin T HDL Cholesterol Arterial Blood Glucose Urine WBC (Auto) Urine Creatinine Urine Total Protein Phenytoin Coronavirus (PCR) Crossmatch 07/10/20 07/11/20 07/11/20 18:10 00:28 05:57 WBC RBC Hgb Hct MCHC RDW Lymph % (Auto) [place] % (Auto) Eos % (Auto) Lymph # [place] # Lymph # (Auto) [place] # (Auto) Eos # (Auto) Seg Neutrophils % Seg Neuts % (Manual) Lymphocytes % (Manual) Seg Neutrophils # Seg Neutrophils # Man Lymphocytes # (Manual) Monocytes % (Manual) Eosinophils % (Manual) Monocytes # (Manual) Eosinophils # (Manual) D-Dimer Heparin Anti-Xa Level ABG pH POC ABG pCO2 POC ABG pO2 ABG pO2 ABG HCO3 ABG O2 Saturation ABG Base Excess ABG Hemoglobin ABG Oxyhemoglobin VBG pH ABG Sodium ABG Potassium ABG Glucose Oxyhemoglobin Sodium Potassium Chloride Carbon Dioxide BUN Creatinine Glucose POC Glucose 134 H 140 H 148 H Lactic Acid Calcium Ferritin AST Alkaline Phosphatase Magnesium Lactate Dehydrogenase Total Creatine Kinase CK-MB (CK-2) C-Reactive Protein Total Protein Albumin Troponin T HDL Cholesterol Arterial Blood Glucose Urine WBC (Auto) Urine Creatinine Urine Total Protein Phenytoin Coronavirus (PCR) Crossmatch 07/11/20 07/11/20 07/11/20 12:14 17:28 23:49 WBC RBC Hgb Hct MCHC RDW Lymph % (Auto) [place] % (Auto) Eos % (Auto) Lymph # [place] # Lymph # (Auto) [place] # (Auto) Eos # (Auto) Seg Neutrophils % Seg Neuts % (Manual) Lymphocytes % (Manual) Seg Neutrophils # Seg Neutrophils # Man Lymphocytes # (Manual) Monocytes % (Manual) Eosinophils % (Manual) Monocytes # (Manual) Eosinophils # (Manual) D-Dimer Heparin Anti-Xa Level ABG pH POC ABG pCO2 POC ABG pO2 ABG pO2 ABG HCO3 ABG O2 Saturation ABG Base Excess ABG Hemoglobin ABG Oxyhemoglobin VBG pH ABG Sodium ABG Potassium ABG Glucose Oxyhemoglobin Sodium Potassium Chloride Carbon Dioxide BUN Creatinine Glucose POC Glucose 147 H 175 H 114 H Lactic Acid Calcium Ferritin AST Alkaline Phosphatase Magnesium Lactate Dehydrogenase Total Creatine Kinase CK-MB (CK-2) C-Reactive Protein Total Protein Albumin Troponin T HDL Cholesterol Arterial Blood Glucose Urine WBC (Auto) Urine Creatinine Urine Total Protein Phenytoin Coronavirus (PCR) Crossmatch 07/12/20 07/12/20 07/12/20 05:14 05:14 05:44 WBC RBC 2.78 L Hgb 8.5 L Hct 25.3 L MCHC RDW 16.7 H Lymph % (Auto) [place] % (Auto) Eos % (Auto) Lymph # [place] # Lymph # (Auto) [place] # (Auto) Eos # (Auto) Seg Neutrophils % Seg Neuts % (Manual) 81.0 H Lymphocytes % (Manual) 6.0 L Seg Neutrophils # Seg Neutrophils # Man Lymphocytes # (Manual) 0.6 L Monocytes % (Manual) 8.0 H Eosinophils % (Manual) Monocytes # (Manual) Eosinophils # (Manual) D-Dimer Heparin Anti-Xa Level ABG pH POC ABG pCO2 POC ABG pO2 ABG pO2 ABG HCO3 ABG O2 Saturation ABG Base Excess ABG Hemoglobin ABG Oxyhemoglobin VBG pH ABG Sodium ABG Potassium ABG Glucose Oxyhemoglobin Sodium Potassium Chloride Carbon Dioxide BUN 79 H Creatinine 2.2 H Glucose 131 H POC Glucose 116 H Lactic Acid Calcium Ferritin AST Alkaline Phosphatase Magnesium Lactate Dehydrogenase Total Creatine Kinase CK-MB (CK-2) C-Reactive Protein Total Protein Albumin Troponin T HDL Cholesterol Arterial Blood Glucose Urine WBC (Auto) Urine Creatinine Urine Total Protein Phenytoin Coronavirus (PCR) Crossmatch 07/12/20 07/12/20 07/13/20 11:32 17:53 00:18 WBC RBC Hgb Hct MCHC RDW Lymph % (Auto) [place] % (Auto) Eos % (Auto) Lymph # [place] # Lymph # (Auto) [place] # (Auto) Eos # (Auto) Seg Neutrophils % Seg Neuts % (Manual) Lymphocytes % (Manual) Seg Neutrophils # Seg Neutrophils # Man Lymphocytes # (Manual) Monocytes % (Manual) Eosinophils % (Manual) Monocytes # (Manual) Eosinophils # (Manual) D-Dimer Heparin Anti-Xa Level ABG pH POC ABG pCO2 POC ABG pO2 ABG pO2 ABG HCO3 ABG O2 Saturation ABG Base Excess ABG Hemoglobin ABG Oxyhemoglobin VBG pH ABG Sodium ABG Potassium ABG Glucose Oxyhemoglobin Sodium Potassium Chloride Carbon Dioxide BUN Creatinine Glucose POC Glucose 132 H 155 H 162 H Lactic Acid Calcium Ferritin AST Alkaline Phosphatase Magnesium Lactate Dehydrogenase Total Creatine Kinase CK-MB (CK-2) C-Reactive Protein Total Protein Albumin Troponin T HDL Cholesterol Arterial Blood Glucose Urine WBC (Auto) Urine Creatinine Urine Total Protein Phenytoin Coronavirus (PCR) Crossmatch 07/13/20 07/13/20 07/13/20 04:53 04:53 06:14 WBC RBC 2.86 L Hgb 8.4 L Hct 25.7 L MCHC RDW 16.8 H Lymph % (Auto) [place] % (Auto) Eos % (Auto) Lymph # [place] # Lymph # (Auto) [place] # (Auto) Eos # (Auto) Seg Neutrophils % Seg Neuts % (Manual) 84.0 H Lymphocytes % (Manual) 7.0 L Seg Neutrophils # Seg Neutrophils # Man Lymphocytes # (Manual) 0.6 L Monocytes % (Manual) Eosinophils % (Manual) Monocytes # (Manual) Eosinophils # (Manual) D-Dimer Heparin Anti-Xa Level ABG pH POC ABG pCO2 POC ABG pO2 ABG pO2 ABG HCO3 ABG O2 Saturation ABG Base Excess ABG Hemoglobin ABG Oxyhemoglobin VBG pH ABG Sodium ABG Potassium ABG Glucose Oxyhemoglobin Sodium 136 L Potassium Chloride Carbon Dioxide BUN 78 H Creatinine 2.0 H Glucose 130 H POC Glucose 141 H Lactic Acid Calcium Ferritin AST Alkaline Phosphatase Magnesium Lactate Dehydrogenase Total Creatine Kinase CK-MB (CK-2) C-Reactive Protein Total Protein Albumin Troponin T HDL Cholesterol Arterial Blood Glucose Urine WBC (Auto) Urine Creatinine Urine Total Protein Phenytoin Coronavirus (PCR) Crossmatch 07/13/20 07/13/20 07/14/20 12:50 18:27 00:22 WBC RBC Hgb Hct MCHC RDW Lymph % (Auto) [place] % (Auto) Eos % (Auto) Lymph # [place] # Lymph # (Auto) [place] # (Auto) Eos # (Auto) Seg Neutrophils % Seg Neuts % (Manual) Lymphocytes % (Manual) Seg Neutrophils # Seg Neutrophils # Man Lymphocytes # (Manual) Monocytes % (Manual) Eosinophils % (Manual) Monocytes # (Manual) Eosinophils # (Manual) D-Dimer Heparin Anti-Xa Level ABG pH POC ABG pCO2 POC ABG pO2 ABG pO2 ABG HCO3 ABG O2 Saturation ABG Base Excess ABG Hemoglobin ABG Oxyhemoglobin VBG pH ABG Sodium ABG Potassium ABG Glucose Oxyhemoglobin Sodium Potassium Chloride Carbon Dioxide BUN Creatinine Glucose POC Glucose 146 H 149 H 157 H Lactic Acid Calcium Ferritin AST Alkaline Phosphatase Magnesium Lactate Dehydrogenase Total Creatine Kinase CK-MB (CK-2) C-Reactive Protein Total Protein Albumin Troponin T HDL Cholesterol Arterial Blood Glucose Urine WBC (Auto) Urine Creatinine Urine Total Protein Phenytoin Coronavirus (PCR) Crossmatch 07/14/20 07/14/20 07/14/20 05:43 08:04 12:12 WBC RBC Hgb Hct MCHC RDW Lymph % (Auto) [place] % (Auto) Eos % (Auto) Lymph # [place] # Lymph # (Auto) [place] # (Auto) Eos # (Auto) Seg Neutrophils % Seg Neuts % (Manual) Lymphocytes % (Manual) Seg Neutrophils # Seg Neutrophils # Man Lymphocytes # (Manual) Monocytes % (Manual) Eosinophils % (Manual) Monocytes # (Manual) Eosinophils # (Manual) D-Dimer Heparin Anti-Xa Level ABG pH POC ABG pCO2 POC ABG pO2 ABG pO2 ABG HCO3 ABG O2 Saturation ABG Base Excess ABG Hemoglobin ABG Oxyhemoglobin VBG pH ABG Sodium ABG Potassium ABG Glucose Oxyhemoglobin Sodium Potassium Chloride Carbon Dioxide BUN Creatinine Glucose POC Glucose 169 H 185 H Lactic Acid Calcium Ferritin AST Alkaline Phosphatase Magnesium Lactate Dehydrogenase Total Creatine Kinase CK-MB (CK-2) C-Reactive Protein Total Protein Albumin Troponin T HDL Cholesterol Arterial Blood Glucose Urine WBC (Auto) Urine Creatinine Urine Total Protein Phenytoin Coronavirus (PCR) Positive A Crossmatch 07/14/20 07/15/20 07/15/20 17:23 00:04 06:06 WBC RBC Hgb Hct MCHC RDW Lymph % (Auto) [place] % (Auto) Eos % (Auto) Lymph # [place] # Lymph # (Auto) [place] # (Auto) Eos # (Auto) Seg Neutrophils % Seg Neuts % (Manual) Lymphocytes % (Manual) Seg Neutrophils # Seg Neutrophils # Man Lymphocytes # (Manual) Monocytes % (Manual) Eosinophils % (Manual) Monocytes # (Manual) Eosinophils # (Manual) D-Dimer Heparin Anti-Xa Level ABG pH POC ABG pCO2 POC ABG pO2 ABG pO2 ABG HCO3 ABG O2 Saturation ABG Base Excess ABG Hemoglobin ABG Oxyhemoglobin VBG pH ABG Sodium ABG Potassium ABG Glucose Oxyhemoglobin Sodium Potassium Chloride Carbon Dioxide BUN Creatinine Glucose POC Glucose 138 H 121 H 140 H Lactic Acid Calcium Ferritin AST Alkaline Phosphatase Magnesium Lactate Dehydrogenase Total Creatine Kinase CK-MB (CK-2) C-Reactive Protein Total Protein Albumin Troponin T HDL Cholesterol Arterial Blood Glucose Urine WBC (Auto) Urine Creatinine Urine Total Protein Phenytoin Coronavirus (PCR) Crossmatch 07/15/20 07/15/20 07/15/20 12:00 17:53 23:53 WBC RBC Hgb Hct MCHC RDW Lymph % (Auto) [place] % (Auto) Eos % (Auto) Lymph # [place] # Lymph # (Auto) [place] # (Auto) Eos # (Auto) Seg Neutrophils % Seg Neuts % (Manual) Lymphocytes % (Manual) Seg Neutrophils # Seg Neutrophils # Man Lymphocytes # (Manual) Monocytes % (Manual) Eosinophils % (Manual) Monocytes # (Manual) Eosinophils # (Manual) D-Dimer Heparin Anti-Xa Level ABG pH POC ABG pCO2 POC ABG pO2 ABG pO2 ABG HCO3 ABG O2 Saturation ABG Base Excess ABG Hemoglobin ABG Oxyhemoglobin VBG pH ABG Sodium ABG Potassium ABG Glucose Oxyhemoglobin Sodium Potassium Chloride Carbon Dioxide BUN Creatinine Glucose POC Glucose 137 H 161 H 156 H Lactic Acid Calcium Ferritin AST Alkaline Phosphatase Magnesium Lactate Dehydrogenase Total Creatine Kinase CK-MB (CK-2) C-Reactive Protein Total Protein Albumin Troponin T HDL Cholesterol Arterial Blood Glucose Urine WBC (Auto) Urine Creatinine Urine Total Protein Phenytoin Coronavirus (PCR) Crossmatch 07/16/20 07/16/20 07/17/20 05:26 17:44 00:07 WBC RBC Hgb Hct MCHC RDW Lymph % (Auto) [place] % (Auto) Eos % (Auto) Lymph # [place] # Lymph # (Auto) [place] # (Auto) Eos # (Auto) Seg Neutrophils % Seg Neuts % (Manual) Lymphocytes % (Manual) Seg Neutrophils # Seg Neutrophils # Man Lymphocytes # (Manual) Monocytes % (Manual) Eosinophils % (Manual) Monocytes # (Manual) Eosinophils # (Manual) D-Dimer Heparin Anti-Xa Level ABG pH POC ABG pCO2 POC ABG pO2 ABG pO2 ABG HCO3 ABG O2 Saturation ABG Base Excess ABG Hemoglobin ABG Oxyhemoglobin VBG pH ABG Sodium ABG Potassium ABG Glucose Oxyhemoglobin Sodium Potassium Chloride Carbon Dioxide BUN Creatinine Glucose POC Glucose 152 H 126 H 189 H Lactic Acid Calcium Ferritin AST Alkaline Phosphatase Magnesium Lactate Dehydrogenase Total Creatine Kinase CK-MB (CK-2) C-Reactive Protein Total Protein Albumin Troponin T HDL Cholesterol Arterial Blood Glucose Urine WBC (Auto) Urine Creatinine Urine Total Protein Phenytoin Coronavirus (PCR) Crossmatch 07/17/20 07/17/20 07/17/20 12:06 18:20 23:25 WBC RBC Hgb Hct MCHC RDW Lymph % (Auto) [place] % (Auto) Eos % (Auto) Lymph # [place] # Lymph # (Auto) [place] # (Auto) Eos # (Auto) Seg Neutrophils % Seg Neuts % (Manual) Lymphocytes % (Manual) Seg Neutrophils # Seg Neutrophils # Man Lymphocytes # (Manual) Monocytes % (Manual) Eosinophils % (Manual) Monocytes # (Manual) Eosinophils # (Manual) D-Dimer Heparin Anti-Xa Level ABG pH POC ABG pCO2 POC ABG pO2 ABG pO2 ABG HCO3 ABG O2 Saturation ABG Base Excess ABG Hemoglobin ABG Oxyhemoglobin VBG pH ABG Sodium ABG Potassium ABG Glucose Oxyhemoglobin Sodium Potassium Chloride Carbon Dioxide BUN Creatinine Glucose POC Glucose 155 H 206 H 161 H Lactic Acid Calcium Ferritin AST Alkaline Phosphatase Magnesium Lactate Dehydrogenase Total Creatine Kinase CK-MB (CK-2) C-Reactive Protein Total Protein Albumin Troponin T HDL Cholesterol Arterial Blood Glucose Urine WBC (Auto) Urine Creatinine Urine Total Protein Phenytoin Coronavirus (PCR) Crossmatch 07/18/20 07/18/20 07/18/20 04:24 05:16 11:53 WBC RBC Hgb Hct MCHC RDW Lymph % (Auto) [place] % (Auto) Eos % (Auto) Lymph # [place] # Lymph # (Auto) [place] # (Auto) Eos # (Auto) Seg Neutrophils % Seg Neuts % (Manual) Lymphocytes % (Manual) Seg Neutrophils # Seg Neutrophils # Man Lymphocytes # (Manual) Monocytes % (Manual) Eosinophils % (Manual) Monocytes # (Manual) Eosinophils # (Manual) D-Dimer Heparin Anti-Xa Level ABG pH POC ABG pCO2 POC ABG pO2 ABG pO2 ABG HCO3 ABG O2 Saturation ABG Base Excess ABG Hemoglobin 8.8 L ABG Oxyhemoglobin VBG pH ABG Sodium 131.6 L ABG Potassium 4.9 H ABG Glucose 131 H Oxyhemoglobin Sodium Potassium Chloride Carbon Dioxide BUN Creatinine Glucose POC Glucose 140 H 176 H Lactic Acid Calcium Ferritin AST Alkaline Phosphatase Magnesium Lactate Dehydrogenase Total Creatine Kinase CK-MB (CK-2) C-Reactive Protein Total Protein Albumin Troponin T HDL Cholesterol Arterial Blood Glucose 131 H Urine WBC (Auto) Urine Creatinine Urine Total Protein Phenytoin Coronavirus (PCR) Crossmatch 07/18/20 07/18/20 07/19/20 18:11 23:51 01:05 WBC RBC 2.76 L Hgb 7.9 L Hct 24.5 L MCHC RDW 17.6 H Lymph % (Auto) 11.6 L [place] % (Auto) 13.1 H Eos % (Auto) Lymph # [place] # Lymph # (Auto) 1.0 L [place] # (Auto) 1.1 H Eos # (Auto) Seg Neutrophils % 70.9 H Seg Neuts % (Manual) Lymphocytes % (Manual) Seg Neutrophils # Seg Neutrophils # Man Lymphocytes # (Manual) Monocytes % (Manual) Eosinophils % (Manual) Monocytes # (Manual) Eosinophils # (Manual) D-Dimer Heparin Anti-Xa Level ABG pH POC ABG pCO2 POC ABG pO2 ABG pO2 ABG HCO3 ABG O2 Saturation ABG Base Excess ABG Hemoglobin ABG Oxyhemoglobin VBG pH ABG Sodium ABG Potassium ABG Glucose Oxyhemoglobin Sodium Potassium Chloride Carbon Dioxide BUN Creatinine Glucose POC Glucose 143 H 159 H Lactic Acid Calcium Ferritin AST Alkaline Phosphatase Magnesium Lactate Dehydrogenase Total Creatine Kinase CK-MB (CK-2) C-Reactive Protein Total Protein Albumin Troponin T HDL Cholesterol Arterial Blood Glucose Urine WBC (Auto) Urine Creatinine Urine Total Protein Phenytoin Coronavirus (PCR) Crossmatch 07/19/20 07/19/20 07/19/20 01:05 05:54 12:46 WBC RBC Hgb Hct MCHC RDW Lymph % (Auto) [place] % (Auto) Eos % (Auto) Lymph # [place] # Lymph # (Auto) [place] # (Auto) Eos # (Auto) Seg Neutrophils % Seg Neuts % (Manual) Lymphocytes % (Manual) Seg Neutrophils # Seg Neutrophils # Man Lymphocytes # (Manual) Monocytes % (Manual) Eosinophils % (Manual) Monocytes # (Manual) Eosinophils # (Manual) D-Dimer Heparin Anti-Xa Level ABG pH POC ABG pCO2 POC ABG pO2 ABG pO2 ABG HCO3 ABG O2 Saturation ABG Base Excess ABG Hemoglobin ABG Oxyhemoglobin VBG pH ABG Sodium ABG Potassium ABG Glucose Oxyhemoglobin Sodium Potassium Chloride Carbon Dioxide BUN 86 H Creatinine 1.7 H Glucose 149 H POC Glucose 176 H 127 H Lactic Acid Calcium Ferritin AST Alkaline Phosphatase Magnesium Lactate Dehydrogenase Total Creatine Kinase CK-MB (CK-2) C-Reactive Protein Total Protein Albumin Troponin T HDL Cholesterol Arterial Blood Glucose Urine WBC (Auto) Urine Creatinine Urine Total Protein Phenytoin Coronavirus (PCR) Crossmatch 07/19/20 07/20/20 07/20/20 17:48 00:34 05:28 WBC RBC Hgb Hct MCHC RDW Lymph % (Auto) [place] % (Auto) Eos % (Auto) Lymph # [place] # Lymph # (Auto) [place] # (Auto) Eos # (Auto) Seg Neutrophils % Seg Neuts % (Manual) Lymphocytes % (Manual) Seg Neutrophils # Seg Neutrophils # Man Lymphocytes # (Manual) Monocytes % (Manual) Eosinophils % (Manual) Monocytes # (Manual) Eosinophils # (Manual) D-Dimer Heparin Anti-Xa Level ABG pH POC ABG pCO2 POC ABG pO2 ABG pO2 ABG HCO3 ABG O2 Saturation ABG Base Excess ABG Hemoglobin ABG Oxyhemoglobin VBG pH ABG Sodium ABG Potassium ABG Glucose Oxyhemoglobin Sodium Potassium Chloride Carbon Dioxide BUN Creatinine Glucose POC Glucose 123 H 147 H 110 H Lactic Acid Calcium Ferritin AST Alkaline Phosphatase Magnesium Lactate Dehydrogenase Total Creatine Kinase CK-MB (CK-2) C-Reactive Protein Total Protein Albumin Troponin T HDL Cholesterol Arterial Blood Glucose Urine WBC (Auto) Urine Creatinine Urine Total Protein Phenytoin Coronavirus (PCR) Crossmatch 07/20/20 07/20/20 07/21/20 12:10 17:00 00:11 WBC RBC Hgb Hct MCHC RDW Lymph % (Auto) [place] % (Auto) Eos % (Auto) Lymph # [place] # Lymph # (Auto) [place] # (Auto) Eos # (Auto) Seg Neutrophils % Seg Neuts % (Manual) Lymphocytes % (Manual) Seg Neutrophils # Seg Neutrophils # Man Lymphocytes # (Manual) Monocytes % (Manual) Eosinophils % (Manual) Monocytes # (Manual) Eosinophils # (Manual) D-Dimer Heparin Anti-Xa Level ABG pH POC ABG pCO2 POC ABG pO2 ABG pO2 ABG HCO3 ABG O2 Saturation ABG Base Excess ABG Hemoglobin ABG Oxyhemoglobin VBG pH ABG Sodium ABG Potassium ABG Glucose Oxyhemoglobin Sodium Potassium Chloride Carbon Dioxide BUN Creatinine Glucose POC Glucose 149 H 173 H 128 H Lactic Acid Calcium Ferritin AST Alkaline Phosphatase Magnesium Lactate Dehydrogenase Total Creatine Kinase CK-MB (CK-2) C-Reactive Protein Total Protein Albumin Troponin T HDL Cholesterol Arterial Blood Glucose Urine WBC (Auto) Urine Creatinine Urine Total Protein Phenytoin Coronavirus (PCR) Crossmatch 07/21/20 07/21/20 07/21/20 05:30 12:21 18:17 WBC RBC Hgb Hct MCHC RDW Lymph % (Auto) [place] % (Auto) Eos % (Auto) Lymph # [place] # Lymph # (Auto) [place] # (Auto) Eos # (Auto) Seg Neutrophils % Seg Neuts % (Manual) Lymphocytes % (Manual) Seg Neutrophils # Seg Neutrophils # Man Lymphocytes # (Manual) Monocytes % (Manual) Eosinophils % (Manual) Monocytes # (Manual) Eosinophils # (Manual) D-Dimer Heparin Anti-Xa Level ABG pH POC ABG pCO2 POC ABG pO2 ABG pO2 ABG HCO3 ABG O2 Saturation ABG Base Excess ABG Hemoglobin ABG Oxyhemoglobin VBG pH ABG Sodium ABG Potassium ABG Glucose Oxyhemoglobin Sodium Potassium Chloride Carbon Dioxide BUN Creatinine Glucose POC Glucose 153 H 144 H 160 H Lactic Acid Calcium Ferritin AST Alkaline Phosphatase Magnesium Lactate Dehydrogenase Total Creatine Kinase CK-MB (CK-2) C-Reactive Protein Total Protein Albumin Troponin T HDL Cholesterol Arterial Blood Glucose Urine WBC (Auto) Urine Creatinine Urine Total Protein Phenytoin Coronavirus (PCR) Crossmatch 07/22/20 07/22/20 07/22/20 00:45 05:52 12:03 WBC RBC Hgb Hct MCHC RDW Lymph % (Auto) [place] % (Auto) Eos % (Auto) Lymph # [place] # Lymph # (Auto) [place] # (Auto) Eos # (Auto) Seg Neutrophils % Seg Neuts % (Manual) Lymphocytes % (Manual) Seg Neutrophils # Seg Neutrophils # Man Lymphocytes # (Manual) Monocytes % (Manual) Eosinophils % (Manual) Monocytes # (Manual) Eosinophils # (Manual) D-Dimer Heparin Anti-Xa Level ABG pH POC ABG pCO2 POC ABG pO2 ABG pO2 ABG HCO3 ABG O2 Saturation ABG Base Excess ABG Hemoglobin ABG Oxyhemoglobin VBG pH ABG Sodium ABG Potassium ABG Glucose Oxyhemoglobin Sodium Potassium Chloride Carbon Dioxide BUN Creatinine Glucose POC Glucose 128 H 126 H 157 H Lactic Acid Calcium Ferritin AST Alkaline Phosphatase Magnesium Lactate Dehydrogenase Total Creatine Kinase CK-MB (CK-2) C-Reactive Protein Total Protein Albumin Troponin T HDL Cholesterol Arterial Blood Glucose Urine WBC (Auto) Urine Creatinine Urine Total Protein Phenytoin Coronavirus (PCR) Crossmatch 07/22/20 07/22/20 07/23/20 18:23 23:20 06:06 WBC RBC Hgb Hct MCHC RDW Lymph % (Auto) [place] % (Auto) Eos % (Auto) Lymph # [place] # Lymph # (Auto) [place] # (Auto) Eos # (Auto) Seg Neutrophils % Seg Neuts % (Manual) Lymphocytes % (Manual) Seg Neutrophils # Seg Neutrophils # Man Lymphocytes # (Manual) Monocytes % (Manual) Eosinophils % (Manual) Monocytes # (Manual) Eosinophils # (Manual) D-Dimer Heparin Anti-Xa Level ABG pH POC ABG pCO2 POC ABG pO2 ABG pO2 ABG HCO3 ABG O2 Saturation ABG Base Excess ABG Hemoglobin ABG Oxyhemoglobin VBG pH ABG Sodium ABG Potassium ABG Glucose Oxyhemoglobin Sodium Potassium Chloride Carbon Dioxide BUN Creatinine Glucose POC Glucose 152 H 122 H 143 H Lactic Acid Calcium Ferritin AST Alkaline Phosphatase Magnesium Lactate Dehydrogenase Total Creatine Kinase CK-MB (CK-2) C-Reactive Protein Total Protein Albumin Troponin T HDL Cholesterol Arterial Blood Glucose Urine WBC (Auto) Urine Creatinine Urine Total Protein Phenytoin Coronavirus (PCR) Crossmatch 07/23/20 07/23/20 07/23/20 12:11 17:38 19:23 WBC RBC Hgb Hct MCHC RDW Lymph % (Auto) [place] % (Auto) Eos % (Auto) Lymph # [place] # Lymph # (Auto) [place] # (Auto) Eos # (Auto) Seg Neutrophils % Seg Neuts % (Manual) Lymphocytes % (Manual) Seg Neutrophils # Seg Neutrophils # Man Lymphocytes # (Manual) Monocytes % (Manual) Eosinophils % (Manual) Monocytes # (Manual) Eosinophils # (Manual) D-Dimer Heparin Anti-Xa Level ABG pH POC ABG pCO2 POC ABG pO2 ABG pO2 ABG HCO3 ABG O2 Saturation ABG Base Excess ABG Hemoglobin ABG Oxyhemoglobin VBG pH ABG Sodium ABG Potassium ABG Glucose Oxyhemoglobin Sodium 129 L D Potassium 5.8 H Chloride 95.6 L Carbon Dioxide BUN 98 H Creatinine 2.1 H Glucose 167 H POC Glucose 210 H 181 H Lactic Acid Calcium Ferritin AST Alkaline Phosphatase Magnesium Lactate Dehydrogenase Total Creatine Kinase CK-MB (CK-2) C-Reactive Protein Total Protein Albumin 2.2 L Troponin T HDL Cholesterol Arterial Blood Glucose Urine WBC (Auto) Urine Creatinine Urine Total Protein Phenytoin Coronavirus (PCR) Crossmatch 07/24/20 07/24/20 07/24/20 00:00 04:29 04:29 WBC RBC 2.53 L Hgb 7.5 L Hct 22.8 L MCHC RDW 16.8 H Lymph % (Auto) 9.4 L [place] % (Auto) 10.4 H Eos % (Auto) 5.9 H Lymph # [place] # Lymph # (Auto) 0.8 L [place] # (Auto) 0.9 H Eos # (Auto) 0.5 H Seg Neutrophils % 73.5 H Seg Neuts % (Manual) Lymphocytes % (Manual) Seg Neutrophils # Seg Neutrophils # Man Lymphocytes # (Manual) Monocytes % (Manual) Eosinophils % (Manual) Monocytes # (Manual) Eosinophils # (Manual) D-Dimer Heparin Anti-Xa Level ABG pH POC ABG pCO2 POC ABG pO2 ABG pO2 ABG HCO3 ABG O2 Saturation ABG Base Excess ABG Hemoglobin ABG Oxyhemoglobin VBG pH ABG Sodium ABG Potassium ABG Glucose Oxyhemoglobin Sodium Potassium Chloride Carbon Dioxide BUN Creatinine Glucose POC Glucose 201 H Lactic Acid Calcium Ferritin AST Alkaline Phosphatase Magnesium Lactate Dehydrogenase Total Creatine Kinase CK-MB (CK-2) C-Reactive Protein Total Protein Albumin Troponin T HDL Cholesterol Arterial Blood Glucose Urine WBC (Auto) Urine Creatinine Urine Total Protein Phenytoin 9.4 L Coronavirus (PCR) Crossmatch 07/24/20 07/24/20 07/24/20 04:29 05:11 12:14 WBC RBC Hgb Hct MCHC RDW Lymph % (Auto) [place] % (Auto) Eos % (Auto) Lymph # [place] # Lymph # (Auto) [place] # (Auto) Eos # (Auto) Seg Neutrophils % Seg Neuts % (Manual) Lymphocytes % (Manual) Seg Neutrophils # Seg Neutrophils # Man Lymphocytes # (Manual) Monocytes % (Manual) Eosinophils % (Manual) Monocytes # (Manual) Eosinophils # (Manual) D-Dimer Heparin Anti-Xa Level ABG pH POC ABG pCO2 POC ABG pO2 ABG pO2 ABG HCO3 ABG O2 Saturation ABG Base Excess ABG Hemoglobin ABG Oxyhemoglobin VBG pH ABG Sodium ABG Potassium ABG Glucose Oxyhemoglobin Sodium 134 L Potassium 5.5 H Chloride Carbon Dioxide BUN 97 H Creatinine 2.2 H Glucose 149 H POC Glucose 142 H 146 H Lactic Acid Calcium Ferritin AST Alkaline Phosphatase Magnesium 2.60 H Lactate Dehydrogenase Total Creatine Kinase CK-MB (CK-2) C-Reactive Protein Total Protein Albumin Troponin T HDL Cholesterol Arterial Blood Glucose Urine WBC (Auto) Urine Creatinine Urine Total Protein Phenytoin Coronavirus (PCR) Crossmatch 07/24/20 07/24/20 07/25/20 18:12 21:00 00:08 WBC RBC Hgb Hct MCHC RDW Lymph % (Auto) [place] % (Auto) Eos % (Auto) Lymph # [place] # Lymph # (Auto) [place] # (Auto) Eos # (Auto) Seg Neutrophils % Seg Neuts % (Manual) Lymphocytes % (Manual) Seg Neutrophils # Seg Neutrophils # Man Lymphocytes # (Manual) Monocytes % (Manual) Eosinophils % (Manual) Monocytes # (Manual) Eosinophils # (Manual) D-Dimer Heparin Anti-Xa Level ABG pH POC ABG pCO2 POC ABG pO2 ABG pO2 ABG HCO3 ABG O2 Saturation ABG Base Excess ABG Hemoglobin ABG Oxyhemoglobin VBG pH ABG Sodium ABG Potassium ABG Glucose Oxyhemoglobin Sodium Potassium Chloride Carbon Dioxide BUN Creatinine Glucose POC Glucose 182 H 170 H 129 H Lactic Acid Calcium Ferritin AST Alkaline Phosphatase Magnesium Lactate Dehydrogenase Total Creatine Kinase CK-MB (CK-2) C-Reactive Protein Total Protein Albumin Troponin T HDL Cholesterol Arterial Blood Glucose Urine WBC (Auto) Urine Creatinine Urine Total Protein Phenytoin Coronavirus (PCR) Crossmatch 07/25/20 07/25/20 07/25/20 04:24 04:24 12:19 WBC RBC 2.51 L Hgb 7.5 L Hct 22.3 L MCHC RDW 17.4 H Lymph % (Auto) [place] % (Auto) Eos % (Auto) Lymph # [place] # Lymph # (Auto) [place] # (Auto) Eos # (Auto) Seg Neutrophils % Seg Neuts % (Manual) Lymphocytes % (Manual) Seg Neutrophils # Seg Neutrophils # Man Lymphocytes # (Manual) Monocytes % (Manual) Eosinophils % (Manual) Monocytes # (Manual) Eosinophils # (Manual) D-Dimer Heparin Anti-Xa Level ABG pH POC ABG pCO2 POC ABG pO2 ABG pO2 ABG HCO3 ABG O2 Saturation ABG Base Excess ABG Hemoglobin ABG Oxyhemoglobin VBG pH ABG Sodium ABG Potassium ABG Glucose Oxyhemoglobin Sodium 132 L Potassium Chloride 95.1 L Carbon Dioxide 21 L BUN 95 H Creatinine 2.5 H Glucose 108 H POC Glucose 122 H Lactic Acid Calcium Ferritin AST Alkaline Phosphatase Magnesium Lactate Dehydrogenase Total Creatine Kinase CK-MB (CK-2) C-Reactive Protein Total Protein Albumin Troponin T HDL Cholesterol Arterial Blood Glucose Urine WBC (Auto) Urine Creatinine Urine Total Protein Phenytoin Coronavirus (PCR) Crossmatch 07/25/20 07/25/20 07/26/20 18:11 23:24 04:22 WBC RBC Hgb Hct MCHC RDW Lymph % (Auto) [place] % (Auto) Eos % (Auto) Lymph # [place] # Lymph # (Auto) [place] # (Auto) Eos # (Auto) Seg Neutrophils % Seg Neuts % (Manual) Lymphocytes % (Manual) Seg Neutrophils # Seg Neutrophils # Man Lymphocytes # (Manual) Monocytes % (Manual) Eosinophils % (Manual) Monocytes # (Manual) Eosinophils # (Manual) D-Dimer Heparin Anti-Xa Level ABG pH POC ABG pCO2 POC ABG pO2 ABG pO2 ABG HCO3 ABG O2 Saturation ABG Base Excess ABG Hemoglobin ABG Oxyhemoglobin VBG pH ABG Sodium ABG Potassium ABG Glucose Oxyhemoglobin Sodium 132 L Potassium Chloride 96.2 L Carbon Dioxide 21 L BUN 99 H Creatinine 2.5 H Glucose 132 H POC Glucose 137 H 117 H Lactic Acid Calcium 8.2 L Ferritin AST Alkaline Phosphatase Magnesium Lactate Dehydrogenase Total Creatine Kinase CK-MB (CK-2) C-Reactive Protein Total Protein Albumin Troponin T HDL Cholesterol Arterial Blood Glucose Urine WBC (Auto) Urine Creatinine Urine Total Protein Phenytoin Coronavirus (PCR) Crossmatch 07/26/20 07/26/20 07/26/20 05:58 12:21 17:31 WBC RBC Hgb Hct MCHC RDW Lymph % (Auto) [place] % (Auto) Eos % (Auto) Lymph # [place] # Lymph # (Auto) [place] # (Auto) Eos # (Auto) Seg Neutrophils % Seg Neuts % (Manual) Lymphocytes % (Manual) Seg Neutrophils # Seg Neutrophils # Man Lymphocytes # (Manual) Monocytes % (Manual) Eosinophils % (Manual) Monocytes # (Manual) Eosinophils # (Manual) D-Dimer Heparin Anti-Xa Level ABG pH POC ABG pCO2 POC ABG pO2 ABG pO2 ABG HCO3 ABG O2 Saturation ABG Base Excess ABG Hemoglobin ABG Oxyhemoglobin VBG pH ABG Sodium ABG Potassium ABG Glucose Oxyhemoglobin Sodium Potassium Chloride Carbon Dioxide BUN Creatinine Glucose POC Glucose 110 H 142 H 180 H Lactic Acid Calcium Ferritin AST Alkaline Phosphatase Magnesium Lactate Dehydrogenase Total Creatine Kinase CK-MB (CK-2) C-Reactive Protein Total Protein Albumin Troponin T HDL Cholesterol Arterial Blood Glucose Urine WBC (Auto) Urine Creatinine Urine Total Protein Phenytoin Coronavirus (PCR) Crossmatch 07/26/20 07/27/20 07/27/20 23:36 03:36 05:36 WBC RBC 2.49 L Hgb 7.3 L Hct 22.2 L MCHC RDW 17.2 H Lymph % (Auto) 11.0 L [place] % (Auto) 11.7 H Eos % (Auto) Lymph # [place] # Lymph # (Auto) 0.8 L [place] # (Auto) 0.9 H Eos # (Auto) Seg Neutrophils % 72.3 H Seg Neuts % (Manual) Lymphocytes % (Manual) Seg Neutrophils # Seg Neutrophils # Man Lymphocytes # (Manual) Monocytes % (Manual) Eosinophils % (Manual) Monocytes # (Manual) Eosinophils # (Manual) D-Dimer Heparin Anti-Xa Level ABG pH POC ABG pCO2 POC ABG pO2 ABG pO2 ABG HCO3 ABG O2 Saturation ABG Base Excess ABG Hemoglobin ABG Oxyhemoglobin VBG pH ABG Sodium ABG Potassium ABG Glucose Oxyhemoglobin Sodium Potassium Chloride Carbon Dioxide BUN Creatinine Glucose POC Glucose 162 H 118 H Lactic Acid Calcium Ferritin AST Alkaline Phosphatase Magnesium Lactate Dehydrogenase Total Creatine Kinase CK-MB (CK-2) C-Reactive Protein Total Protein Albumin Troponin T HDL Cholesterol Arterial Blood Glucose Urine WBC (Auto) Urine Creatinine Urine Total Protein Phenytoin Coronavirus (PCR) Crossmatch 07/27/20 07/27/20 07/27/20 05:36 12:19 17:36 WBC RBC Hgb Hct MCHC RDW Lymph % (Auto) [place] % (Auto) Eos % (Auto) Lymph # [place] # Lymph # (Auto) [place] # (Auto) Eos # (Auto) Seg Neutrophils % Seg Neuts % (Manual) Lymphocytes % (Manual) Seg Neutrophils # Seg Neutrophils # Man Lymphocytes # (Manual) Monocytes % (Manual) Eosinophils % (Manual) Monocytes # (Manual) Eosinophils # (Manual) D-Dimer Heparin Anti-Xa Level ABG pH POC ABG pCO2 POC ABG pO2 ABG pO2 ABG HCO3 ABG O2 Saturation ABG Base Excess ABG Hemoglobin ABG Oxyhemoglobin VBG pH ABG Sodium ABG Potassium ABG Glucose Oxyhemoglobin Sodium 135 L Potassium 5.3 H Chloride Carbon Dioxide 21 L BUN 103 H Creatinine 2.6 H Glucose 113 H POC Glucose 131 H 151 H Lactic Acid Calcium 8.1 L Ferritin AST Alkaline Phosphatase Magnesium Lactate Dehydrogenase Total Creatine Kinase CK-MB (CK-2) C-Reactive Protein Total Protein Albumin Troponin T HDL Cholesterol Arterial Blood Glucose Urine WBC (Auto) Urine Creatinine Urine Total Protein Phenytoin Coronavirus (PCR) Crossmatch 07/27/20 07/28/20 07/28/20 23:29 04:30 04:30 WBC RBC 2.50 L Hgb 7.3 L Hct 22.2 L MCHC RDW 17.3 H Lymph % (Auto) 8.7 L [place] % (Auto) 8.3 H Eos % (Auto) Lymph # [place] # Lymph # (Auto) 0.7 L [place] # (Auto) Eos # (Auto) Seg Neutrophils % 79.1 H Seg Neuts % (Manual) Lymphocytes % (Manual) Seg Neutrophils # Seg Neutrophils # Man Lymphocytes # (Manual) Monocytes % (Manual) Eosinophils % (Manual) Monocytes # (Manual) Eosinophils # (Manual) D-Dimer Heparin Anti-Xa Level ABG pH POC ABG pCO2 POC ABG pO2 ABG pO2 ABG HCO3 ABG O2 Saturation ABG Base Excess ABG Hemoglobin ABG Oxyhemoglobin VBG pH ABG Sodium ABG Potassium ABG Glucose Oxyhemoglobin Sodium 135 L Potassium 5.2 H Chloride 96.8 L Carbon Dioxide 20 L BUN 107 H Creatinine 2.9 H Glucose POC Glucose 124 H Lactic Acid Calcium 8.2 L Ferritin AST Alkaline Phosphatase Magnesium 2.70 H Lactate Dehydrogenase Total Creatine Kinase CK-MB (CK-2) C-Reactive Protein Total Protein Albumin Troponin T HDL Cholesterol Arterial Blood Glucose Urine WBC (Auto) Urine Creatinine Urine Total Protein Phenytoin Coronavirus (PCR) Crossmatch 07/28/20 07/29/20 07/29/20 17:35 00:11 06:45 WBC RBC Hgb Hct MCHC RDW Lymph % (Auto) [place] % (Auto) Eos % (Auto) Lymph # [place] # Lymph # (Auto) [place] # (Auto) Eos # (Auto) Seg Neutrophils % Seg Neuts % (Manual) Lymphocytes % (Manual) Seg Neutrophils # Seg Neutrophils # Man Lymphocytes # (Manual) Monocytes % (Manual) Eosinophils % (Manual) Monocytes # (Manual) Eosinophils # (Manual) D-Dimer Heparin Anti-Xa Level ABG pH POC ABG pCO2 POC ABG pO2 ABG pO2 ABG HCO3 ABG O2 Saturation ABG Base Excess ABG Hemoglobin ABG Oxyhemoglobin VBG pH ABG Sodium ABG Potassium ABG Glucose Oxyhemoglobin Sodium Potassium Chloride Carbon Dioxide BUN Creatinine Glucose POC Glucose 146 H 143 H 179 H Lactic Acid Calcium Ferritin AST Alkaline Phosphatase Magnesium Lactate Dehydrogenase Total Creatine Kinase CK-MB (CK-2) C-Reactive Protein Total Protein Albumin Troponin T HDL Cholesterol Arterial Blood Glucose Urine WBC (Auto) Urine Creatinine Urine Total Protein Phenytoin Coronavirus (PCR) Crossmatch 07/29/20 07/29/20 07/29/20 11:54 13:01 13:01 WBC RBC 2.40 L Hgb 7.1 L Hct 20.9 L MCHC RDW 17.5 H Lymph % (Auto) [place] % (Auto) Eos % (Auto) Lymph # [place] # Lymph # (Auto) [place] # (Auto) Eos # (Auto) Seg Neutrophils % Seg Neuts % (Manual) 86.0 H Lymphocytes % (Manual) 6.0 L Seg Neutrophils # Seg Neutrophils # Man 8.9 H Lymphocytes # (Manual) 0.6 L Monocytes % (Manual) 8.0 H Eosinophils % (Manual) Monocytes # (Manual) Eosinophils # (Manual) D-Dimer Heparin Anti-Xa Level ABG pH POC ABG pCO2 POC ABG pO2 ABG pO2 ABG HCO3 ABG O2 Saturation ABG Base Excess ABG Hemoglobin ABG Oxyhemoglobin VBG pH ABG Sodium ABG Potassium ABG Glucose Oxyhemoglobin Sodium 129 L Potassium Chloride 92.9 L Carbon Dioxide BUN 112 H Creatinine 3.0 H Glucose 142 H POC Glucose 170 H Lactic Acid Calcium 7.9 L Ferritin AST Alkaline Phosphatase Magnesium Lactate Dehydrogenase Total Creatine Kinase CK-MB (CK-2) C-Reactive Protein Total Protein Albumin Troponin T HDL Cholesterol Arterial Blood Glucose Urine WBC (Auto) Urine Creatinine Urine Total Protein Phenytoin Coronavirus (PCR) Crossmatch 07/29/20 07/30/20 07/30/20 22:45 05:01 11:45 WBC RBC Hgb Hct MCHC RDW Lymph % (Auto) [place] % (Auto) Eos % (Auto) Lymph # [place] # Lymph # (Auto) [place] # (Auto) Eos # (Auto) Seg Neutrophils % Seg Neuts % (Manual) Lymphocytes % (Manual) Seg Neutrophils # Seg Neutrophils # Man Lymphocytes # (Manual) Monocytes % (Manual) Eosinophils % (Manual) Monocytes # (Manual) Eosinophils # (Manual) D-Dimer Heparin Anti-Xa Level ABG pH POC ABG pCO2 POC ABG pO2 ABG pO2 ABG HCO3 ABG O2 Saturation ABG Base Excess ABG Hemoglobin ABG Oxyhemoglobin VBG pH ABG Sodium ABG Potassium ABG Glucose Oxyhemoglobin Sodium Potassium Chloride Carbon Dioxide BUN Creatinine Glucose POC Glucose 129 H 150 H 130 H Lactic Acid Calcium Ferritin AST Alkaline Phosphatase Magnesium Lactate Dehydrogenase Total Creatine Kinase CK-MB (CK-2) C-Reactive Protein Total Protein Albumin Troponin T HDL Cholesterol Arterial Blood Glucose Urine WBC (Auto) Urine Creatinine Urine Total Protein Phenytoin Coronavirus (PCR) Crossmatch 07/30/20 07/30/20 07/30/20 17:54 21:26 23:58 WBC RBC Hgb Hct MCHC RDW Lymph % (Auto) [place] % (Auto) Eos % (Auto) Lymph # [place] # Lymph # (Auto) [place] # (Auto) Eos # (Auto) Seg Neutrophils % Seg Neuts % (Manual) Lymphocytes % (Manual) Seg Neutrophils # Seg Neutrophils # Man Lymphocytes # (Manual) Monocytes % (Manual) Eosinophils % (Manual) Monocytes # (Manual) Eosinophils # (Manual) D-Dimer Heparin Anti-Xa Level ABG pH POC ABG pCO2 POC ABG pO2 ABG pO2 ABG HCO3 ABG O2 Saturation ABG Base Excess ABG Hemoglobin ABG Oxyhemoglobin VBG pH ABG Sodium ABG Potassium ABG Glucose Oxyhemoglobin Sodium Potassium Chloride Carbon Dioxide BUN Creatinine Glucose POC Glucose 143 H 124 H 142 H Lactic Acid Calcium Ferritin AST Alkaline Phosphatase Magnesium Lactate Dehydrogenase Total Creatine Kinase CK-MB (CK-2) C-Reactive Protein Total Protein Albumin Troponin T HDL Cholesterol Arterial Blood Glucose Urine WBC (Auto) Urine Creatinine Urine Total Protein Phenytoin Coronavirus (PCR) Crossmatch 07/31/20 07/31/20 07/31/20 05:43 11:35 18:07 WBC RBC Hgb Hct MCHC RDW Lymph % (Auto) [place] % (Auto) Eos % (Auto) Lymph # [place] # Lymph # (Auto) [place] # (Auto) Eos # (Auto) Seg Neutrophils % Seg Neuts % (Manual) Lymphocytes % (Manual) Seg Neutrophils # Seg Neutrophils # Man Lymphocytes # (Manual) Monocytes % (Manual) Eosinophils % (Manual) Monocytes # (Manual) Eosinophils # (Manual) D-Dimer Heparin Anti-Xa Level ABG pH POC ABG pCO2 POC ABG pO2 ABG pO2 ABG HCO3 ABG O2 Saturation ABG Base Excess ABG Hemoglobin ABG Oxyhemoglobin VBG pH ABG Sodium ABG Potassium ABG Glucose Oxyhemoglobin Sodium Potassium Chloride Carbon Dioxide BUN Creatinine Glucose POC Glucose 152 H 179 H 129 H Lactic Acid Calcium Ferritin AST Alkaline Phosphatase Magnesium Lactate Dehydrogenase Total Creatine Kinase CK-MB (CK-2) C-Reactive Protein Total Protein Albumin Troponin T HDL Cholesterol Arterial Blood Glucose Urine WBC (Auto) Urine Creatinine Urine Total Protein Phenytoin Coronavirus (PCR) Crossmatch 07/31/20 07/31/20 08/01/20 21:30 22:12 00:25 WBC RBC Hgb Hct MCHC RDW Lymph % (Auto) [place] % (Auto) Eos % (Auto) Lymph # [place] # Lymph # (Auto) [place] # (Auto) Eos # (Auto) Seg Neutrophils % Seg Neuts % (Manual) Lymphocytes % (Manual) Seg Neutrophils # Seg Neutrophils # Man Lymphocytes # (Manual) Monocytes % (Manual) Eosinophils % (Manual) Monocytes # (Manual) Eosinophils # (Manual) D-Dimer Heparin Anti-Xa Level ABG pH POC ABG pCO2 POC ABG pO2 ABG pO2 ABG HCO3 ABG O2 Saturation ABG Base Excess ABG Hemoglobin ABG Oxyhemoglobin VBG pH ABG Sodium ABG Potassium ABG Glucose Oxyhemoglobin Sodium Potassium Chloride Carbon Dioxide BUN Creatinine Glucose POC Glucose 143 H 122 H 134 H Lactic Acid Calcium Ferritin AST Alkaline Phosphatase Magnesium Lactate Dehydrogenase Total Creatine Kinase CK-MB (CK-2) C-Reactive Protein Total Protein Albumin Troponin T HDL Cholesterol Arterial Blood Glucose Urine WBC (Auto) Urine Creatinine Urine Total Protein Phenytoin Coronavirus (PCR) Crossmatch 08/01/20 08/01/20 04:43 05:41 WBC RBC Hgb Hct MCHC RDW Lymph % (Auto) [place] % (Auto) Eos % (Auto) Lymph # [place] # Lymph # (Auto) [place] # (Auto) Eos # (Auto) Seg Neutrophils % Seg Neuts % (Manual) Lymphocytes % (Manual) Seg Neutrophils # Seg Neutrophils # Man Lymphocytes # (Manual) Monocytes % (Manual) Eosinophils % (Manual) Monocytes # (Manual) Eosinophils # (Manual) D-Dimer Heparin Anti-Xa Level ABG pH POC ABG pCO2 POC ABG pO2 ABG pO2 ABG HCO3 ABG O2 Saturation ABG Base Excess ABG Hemoglobin ABG Oxyhemoglobin VBG pH ABG Sodium ABG Potassium ABG Glucose Oxyhemoglobin Sodium 128 L Potassium 5.8 H Chloride 90.5 L Carbon Dioxide 19 L BUN 122 H Creatinine 3.4 H Glucose 124 H POC Glucose 130 H Lactic Acid Calcium 8.0 L Ferritin AST Alkaline Phosphatase Magnesium Lactate Dehydrogenase Total Creatine Kinase CK-MB (CK-2) C-Reactive Protein Total Protein Albumin Troponin T HDL Cholesterol Arterial Blood Glucose Urine WBC (Auto) Urine Creatinine Urine Total Protein Phenytoin Coronavirus (PCR) Crossmatch Chest x-ray: other (none today) Allied health notes reviewed: nursing
--- NOTE | 2020-08-01 15:45 | Progress Note ---
Assessment and Plan - Patient Problems (1) Acute kidney injury (AVANI) with acute tubular necrosis (ATN) Current Visit: Yes Status: Acute Plan to address problem: Kidney function had been worsening. Patient had poor diuretic response to Lasix IV. She also did not respond to Bumex and infusions with albumin infusion. Family had decided No Dialysis but now want Dialysis. I called patient's son and discussed benefits and risk. Patient has been in hospital for more than a month with COVID-19 and numerous complications and is not doing well. Prognosis is poor. Patient's son states after consulting with hi 4 sisters, they now want to do dialysis to give the Patient "One last chance". Will need Vas cath placement and then Hemodialysis. Called and discussed with Charge Nurse (2) Acute hypoxemic respiratory failure Current Visit: Yes Status: Acute Plan to address problem: Being managed by pulmonary. S/p Extubation 06/12. Back on respirator. Cont inue management by pulmonary/critical care (3) Cardiac arrest Current Visit: Yes Status: Acute Plan to address problem: Patient is improving (4) Metabolic encephalopathy Current Visit: Yes Status: Acute Plan to address problem: Mental status is ? improving (5) Pneumonia due to COVID-19 virus Current Visit: Yes Status: Acute Plan to address problem: Patient has completed 5 days of Remdesevir. Completed course of steroids. (6) Cardiomyopathy Current Visit: No Status: Acute Qualifiers: Cardiomyopathy type: unspecified Qualified Code(s): I42.9 - Cardiomyopathy, unspecified Plan to address problem: Patient has peripheral edema. Has not responded to Bumex infusion. Will start dialysis and monitor response (7) Hyperglycemia due to type 2 diabetes mellitus Current Visit: No Status: Acute Qualifiers: Diabetes mellitus senior care insulin use: without senior care use Qualified Code(s): E11.65 - Type 2 diabetes mellitus with hyperglycemia Plan to address problem: Blood sugar management by primary attending Subjective Date of service: 08/01/20 Principal diagnosis: Ac hypoxemic resp failure; COVID-19; pneumonia; CHF; Pulm HTN; OHS; DM II Interval history: Chart reviewed. I did not do physical exam at the bedside due to PPE conservation with the current COVID-19 pandemic. I was called by Dr Oneal who spoke to family and they have now decided to pursue dialysis.. I called patient's son yesterday and discussed at length with him. He says his sisters want to do dialysis to give their Mom one last chance understanding benefits and risk and patient poor prognosis. He also stated Sisters were worried about Covid. I explained the decision about Dialysis has to be from other concerns but he insists they want to do Dialysis and other aggressive measures for now Objective - Exam Narrative Exam: I did not do physical exam at the bedside due to PPE conservation with the current COVID-19 pandemic - Vital Signs Vital signs: Vital Signs - 12hr 08/01/20 08/01/20 08/01/20 04:01 04:21 05:01 Temperature Pulse Rate 56 L 57 L 57 L Pulse Rate [ From Monitor] Respiratory 11 L 14 Rate Blood Pressure 153/53 153/53 157/52 O2 Sat by Pulse 97 98 98 Oximetry 08/01/20 08/01/20 08/01/20 05:23 06:01 07:01 Temperature Pulse Rate 57 L 57 L 57 L Pulse Rate [ 55 L From Monitor] Respiratory 18 12 19 Rate Blood Pressure 161/61 162/62 O2 Sat by Pulse 98 98 98 Oximetry 08/01/20 08/01/20 08/01/20 07:16 07:23 08:00 Temperature 98.4 F Pulse Rate 55 L 57 L 50 L Pulse Rate [ 55 L From Monitor] Respiratory 13 Rate Blood Pressure 162/62 162/62 O2 Sat by Pulse 98 98 Oximetry 08/01/20 08/01/20 08/01/20 08:01 09:01 09:05 Temperature Pulse Rate 55 L 57 L 58 L Pulse Rate [ From Monitor] Respiratory 13 13 Rate Blood Pressure 163/62 160/46 160/46 O2 Sat by Pulse 98 98 Oximetry 08/01/20 08/01/20 08/01/20 09:23 10:01 11:00 Temperature Pulse Rate 54 L 66 65 Pulse Rate [ From Monitor] Respiratory 12 14 Rate Blood Pressure 160/45 171/48 156/47 O2 Sat by Pulse 98 97 Oximetry 08/01/20 08/01/20 08/01/20 11:28 12:00 12:01 Temperature 98.1 F Pulse Rate 55 L 65 65 Pulse Rate [ 55 L From Monitor] Respiratory 12 21 Rate Blood Pressure 156/47 163/50 O2 Sat by Pulse 98 97 97 Oximetry 08/01/20 08/01/20 08/01/20 13:01 14:01 15:01 Temperature Pulse Rate 55 L 54 L 68 Pulse Rate [ From Monitor] Respiratory 16 16 15 Rate Blood Pressure 149/53 155/57 146/84 O2 Sat by Pulse 97 96 95 Oximetry 08/01/20 15:16 Temperature Pulse Rate 54 L Pulse Rate [ From Monitor] Respiratory Rate Blood Pressure 146/84 O2 Sat by Pulse Oximetry - Lab 07/29/20 13:01 08/01/20 04:43 Most recent lab results ABG pH 7.382 (7.320-7.450) 07/18/20 04:24 ABG pCO2 47.0 mm Hg 07/05/20 13:05 ABG pO2 78.3 mm Hg (80.0-90.0) L 07/05/20 13:05 ABG HCO3 23.4 mmol/L (20.0-26.0) 07/05/20 13:05 ABG O2 Saturation 96.1 % (95.0-99.0) 07/05/20 13:05 Calcium 8.0 mg/dL (8.4-10.2) L 08/01/20 04:43 Magnesium 2.70 mg/dL (1.7-2.3) H 07/28/20 04:30 Urine Creatinine 33.3 mg/dL (0.1-20.0) H 07/06/20 13:20 Urine Sodium 21 mmol/L 07/06/20 13:20 Urine Total Protein 196 mg/dL (5-11.8) H 06/06/20 04:00 Medications & Allergies - Medications Allergies/Adverse Reactions: Allergies No Known Allergies Allergy (Verified 01/21/20 12:28) Home Medications: Home Medications Medication Instructions Recorded Confirmed Last Taken Type AtorvaSTATin [Lipitor] 20 mg PO QHS 05/12/20 05/29/20 Unknown History lisinopriL [Zestril TAB] 40 mg PO QDAY 05/12/20 05/29/20 Unknown History metFORMIN [Glucophage] 850 mg PO BID 05/12/20 05/29/20 Unknown History Acetaminophen [Acetaminophen TAB] 650 mg PO Q4H PRN tablet 05/13/20 05/29/20 Unknown Rx Dicyclomine [Bentyl] 20 mg PO BID #20 tablet 05/13/20 05/29/20 Unknown Rx Famotidine [Pepcid] 20 mg PO BID #30 tablet 05/13/20 05/29/20 Unknown Rx carvediloL [Coreg] 6.25 mg PO BID #60 05/13/20 05/29/20 Unknown Rx Active Medications: Generic Name Dose Route Start Last Admin Trade Name Freq PRN Reason Stop Dose Admin Acetaminophen 650 mg 06/09/20 10:57 06/29/20 21:18 Tylenol FEEDTUBE 650 mg Q6H PRN Administration Fever >101 Amlodipine Besylate 10 mg 06/02/20 11:00 08/01/20 09:05 Amlodipine PO 10 mg DAILY NELSON Administration Lipase/Protease/Amylase 1 each 05/29/20 13:39 07/07/20 10:36 Pancreazhoracio Lawson 10,500 Unit FEEDTUBE 1 each PRN PRN Administration For Clogged Feeding Tube Carvedilol 25 mg 07/20/20 11:00 08/01/20 09:23 Coreg PO Not Given Q12HR NELSON Clonidine HCl 0.1 mg 07/26/20 15:00 08/01/20 15:16 Catapres PO Not Given Q8H NELSON Epoetin Javon 10,000 unit 07/29/20 11:29 Procrit IV SCOTTY PRN hemodialysis Glycopyrrolate 2 mg 06/09/20 14:00 08/01/20 14:18 Glycopyrrolate PO 2 mg TID NELSON Administration Heparin Sodium (Porcine) 5,000 unit 06/30/20 14:00 08/01/20 14:17 Heparin SUB-Q 5,000 unit Q8HR NELSON Administration Heparin Sodium (Porcine) 5,000 unit 07/29/20 11:29 Heparin IV SCOTTY PRN hemodialysis Hydralazine HCl 100 mg 07/14/20 14:00 08/01/20 14:18 Apresoline PO 100 mg TID NELSON Administration Hydralazine HCl 10 mg 08/01/20 11:36 Apresoline IV Q4HR PRN Blood Pressure Hydrophilic Ointment 1 applic 05/28/20 13:49 Vaseline Lip Therapy TP Q2HR PRN Dry Lips Norepinephrine 4 mg in 250 mls @ 7.5 mls/hr 07/23/20 20:00 07/24/20 07:15 Levophed Drip 4 Mg/Ns 250 Ml IV 0 mcg/min TITR NELSON 0 mls/hr Titration Protocol 2 MCG/MIN Dopamine HCl/Dextrose 800 mg in 250 mls @ 4.613 mls/hr 07/24/20 11:30 Intropin Drip 800 Mg/D5w 250 Ml IV TITR NELSON Protocol 2 MCG/KG/MIN Sodium Chloride 100 mls @ 999 mls/hr 07/29/20 11:29 Nacl 0.9% IV SCOTTY PRN Hypotension Insulin Glargine 10 units 06/08/20 22:00 07/31/20 21:56 Lantus SUB-Q 10 units QHS NELSON Administration Insulin Human Lispro 0 unit 05/29/20 18:00 08/01/20 14:10 Humalog SUB-Q Not Given Q6H [facility] Protocol Labetalol HCl 20 mg 06/03/20 09:00 07/31/20 12:14 Labetalol IV 20 mg Q4H PRN Administration HYPERTENSION Lansoprazole 30 mg 06/05/20 22:00 08/01/20 09:05 Prevacid Solutab FEEDTUBE 30 mg BID NELSON Administration Levetiracetam 1,000 mg 07/21/20 22:00 08/01/20 09:06 Keppra PO 1,000 mg BID NELSON Administration Minoxidil 5 mg 07/21/20 10:00 08/01/20 09:04 Loniten PO 5 mg BID NELSON Administration Multi-Ingred Cream/Lotion/Oil/Oint 1 applic 05/28/20 13:49 Artificial Tears Ophth Oint OU Q4HR PRN Dry Eye(s) Ondansetron HCl 4 mg 06/02/20 09:00 06/09/20 16:48 Zofran IV 4 mg Q8H PRN Administration Nausea And Vomiting Phenytoin 225 mg 07/29/20 22:00 08/01/20 09:05 Dilantin FEEDTUBE 225 mg BID NELSON Administration Senna 17.6 mg 06/03/20 10:00 08/01/20 09:24 Senokot FEEDTUBE Not Given BID NELSON Simple Syrup 15 ml 05/29/20 13:39 Simple Syrup FEEDTUBE PRN PRN Hypoglycemia Simple Syrup 30 ml 05/29/20 13:39 Simple Syrup FEEDTUBE PRN PRN Hypoglycemia Sodium Bicarbonate 325 mg 05/29/20 13:39 07/07/20 10:36 Sodium Bicarbonate FEEDTUBE 325 mg PRN PRN Administration For Clogged Feeding Tube Sodium Chloride 10 ml 05/28/20 22:00 08/01/20 10:58 Sodium Chloride Flush Syringe 10 Ml IV 10 ml BID NELSON Administration Sodium Chloride 10 ml 05/28/20 19:08 06/16/20 17:50 Sodium Chloride Flush Syringe 10 Ml IV 10 ml PRN PRN Administration LINE FLUSH
[2020-08-01] MEDS ORDERED: SODIUM CHLORIDE 0.9% 100 ML IV PRN (15:50)
[2020-08-02] MEDS: PHENYTOIN 100 MG/4 ML ORAL.LIQD FEEDTUBE SCH ×2 (00:03→09:20)
[2020-08-02] MEDS: cloNIDine 0.1 MG TAB PO SCH ×2 (00:13→07:03)
[2020-08-02] MEDS: INSULIN LISPRO 100 UNIT/ML VIAL 3 mL SUB-Q SCH ×5 (00:14→18:28)
[2020-08-02] MEDS: SENNOSIDES ORAL LIQD 8.8 MG/5 ML ORAL LIQD FEEDTUBE SCH ×2 (00:14→09:20)
[2020-08-02] MEDS: INSULIN GLARGINE 100 UNITS/ML SUB-Q SCH (00:15)
[2020-08-02] MEDS: HEPARIN 5,000 UNIT/1 ML VIAL SUB-Q SCH ×3 (06:56→23:35)
[2020-08-02] MEDS: LANSOPRAZOLE 30 MG SOLUTAB FEEDTUBE SCH (09:19)
[2020-08-02] MEDS: GLYCOPYRROLATE 2 MG TAB PO SCH ×2 (09:19→18:28)
[2020-08-02] MEDS: amLODIPine 10 MG TAB PO SCH (09:19)
[2020-08-02] MEDS: levETIRAcetam 500 MG/5 ML ORAL LIQD PO SCH (09:20)
[2020-08-02] MEDS: carvediloL 25 MG TAB PO SCH (09:20)
[2020-08-02] MEDS: hydrALAZINE 100 MG TAB PO SCH ×2 (09:21→16:32)
[2020-08-02] MEDS: DOPamine/D5W 800 MG/250 ML 800 MG/250 ML BAG IV SCH (11:33)
[2020-08-02 11:42] LABS: ABG Base Excess -4.5 mmol/L (-2.0-3.0); ABG HCO3 20.8 mmol/L (20.0-26.0); ABG Methemoglobin 0.2 % (0.0-1.5); ABG Oxygen Saturation 97.5 % (95.0-99.0); ABG PH 7.344 pH Units (7.350-7.450); ABG PO2 101.1 mm Hg (80.0-90.0)
[2020-08-02] MEDS ORDERED: DOPamine/D5W 800 MG/250 ML 800 MG/250 ML BAG IV SCH (12:00)
[2020-08-02] MEDS: MINOXIDIL 2.5 MG TAB PO SCH (12:11)
--- NOTE | 2020-08-02 12:25 | Progress Note ---
Assessment and Plan Acute hypoxemic respiratory failure on MVS Coronavirus-19 infection. Bilateral pulmonary infiltrates, bilateral pneumonia plus likely element of Pulmonary edema. Bilateral pulmonary edema. Bilateral pleural effusions. History of congestive heart failure. Morbid obesity. History of pulmonary hypertension. History of hypertension. Diabetes. Obesity hypoventilation syndrome. Elevated serum inflammatory markers to include D-dimers and LDH levels. Hyperkalemia at presentation. Metabolic acidosis. Oropharyngeal dysphagia. (AMS remains rate limiting factor to safe extubation; she will need a tracheo stomy) - begin dopamine - for trialysis catheter then HD/UF - stopped Clonidine - no new issues otherwise, continue care as below; - prn CXR's and ABG's at this point - repeat EEG next per neurology rec's - AED's per neurology ([facility] [employer] [facility]) - surgery evaluation ongoing for trach +/- PEG (await negative COVID PCR result) - continue Modafinil re: lethargy / somnolence - continue daytime PSV trials as tolerated - Daily SAT and SBT assessment as tolerated - continue to wean supplemental oxygen for target O2 sat's > 90% acutely - VAP bundle addressed - continue lung protective strategies - continue bronchodilators with pulmonary hygiene per RT - wean per pulmonary driven protocols otherwise - continue accuchecks resumed with glycemic control per SSI (While critically ill target blood glucose of 140-180 mg/dL; avoid hypoglycemia) - sedation prn for target RASS 0 to -1 - continue to avoid benzodiazepine's, reduce the possibility of delirium - AB's per ID rec's (following clinically of AB's at this time) - continue enteral nutrition at goal rate as tolerated - AED's per neurology - prn analgesia per CPOT score - Maintenance of sleep-wake cycle, avoid delirium - continue enteral nutritional support at goal rate as tolerated - G.I. & VTE prophylaxis with heparin & famotidine - PT/OT/ROM exercises - continue mobility protocols for pressure ulcer prophylaxis - Monitor hemodynamics closely - continue other care per attending / other consultants - discharge planning ongoing concurrently (LTAC evaluation is appropriate) .... Re-evaluate in am & prn; will continue aggressive care until clear family wants to decelerate CONDITION: CRITICAL PROGNOSIS: GUARDED CODE STATUS: FULL CODE The high probability of a clinically significant, sudden or life-threatening deterioration of the [respiratory, cardiovascular, GI & neurologic] system(s) required my full and direct attention, intervention and personal management. The aggregate critical care time was [35] minutes without overlap. Time includes spent on; [x] Data Review and interpretation [x] Patient assessment and monitoring of vital signs [x] Documentation [x] Medication orders and management Subjective Date of service: 08/02/20 Principal diagnosis: Ac hypoxemic resp failure; COVID-19; pneumonia; CHF; Pulm HTN; OHS; DM II Interval history: Patient is seen today for: Ac hypoxemic resp failure; Coronavirus-19 infection; pneumonia; Pulmonary edema; Bilateral pleural effusions; CHF; Morbid obesity; pulmonary hypertension; OHS; DM II Seen and examined at bedside; 24hour events reviewed; nursing and respiratory care staff consulted; no adverse overnight events reported to me; resting peacefully in bed; remains on MVS; AMS is persistent; bradycardic today; also intermittent hypotension; awaiting Vascath placement; no new issues otherwise Objective Vital Signs - 12hr 08/02/20 08/02/20 08/02/20 01:01 02:01 03:01 Temperature Pulse Rate 50 L 52 L 50 L Pulse Rate [ From Monitor] Respiratory 15 15 10 L Rate Blood Pressure 141/48 145/49 132/45 O2 Sat by Pulse 98 98 97 Oximetry 08/02/20 08/02/20 08/02/20 03:22 04:00 04:01 Temperature 98.8 F Pulse Rate 51 L 48 L Pulse Rate [ 65 From Monitor] Respiratory 12 19 Rate Blood Pressure 121/43 O2 Sat by Pulse 97 98 Oximetry 08/02/20 08/02/20 08/02/20 04:27 05:01 06:01 Temperature Pulse Rate 48 L 51 L 51 L Pulse Rate [ From Monitor] Respiratory 14 19 Rate Blood Pressure 121/43 126/52 126/52 O2 Sat by Pulse 97 98 98 Oximetry 08/02/20 08/02/20 08/02/20 07:00 07:03 08:00 Temperature 98.1 F Pulse Rate 48 L 46 L 48 L Pulse Rate [ 48 L From Monitor] Respiratory 12 12 Rate Blood Pressure 144/58 144/58 O2 Sat by Pulse 98 98 Oximetry 08/02/20 08/02/20 08/02/20 08:01 08:31 09:01 Temperature Pulse Rate 48 L 48 L 49 L Pulse Rate [ From Monitor] Respiratory 16 13 Rate Blood Pressure 140/47 140/47 148/45 O2 Sat by Pulse 98 97 98 Oximetry 08/02/20 08/02/20 08/02/20 09:19 09:20 10:01 Temperature Pulse Rate 49 L 48 L 44 L Pulse Rate [ From Monitor] Respiratory 12 Rate Blood Pressure 148/45 148/45 148/51 O2 Sat by Pulse 98 Oximetry 08/02/20 08/02/20 11:01 12:01 Temperature Pulse Rate 38 L 53 L Pulse Rate [ From Monitor] Respiratory 19 13 Rate Blood Pressure 112/32 112/41 O2 Sat by Pulse 99 89 Oximetry Constitutional: appears uncomfortable, other (elderly looking female with mildly increased resp effort at rest) Eyes: non-icteric ENT: oropharynx dry, other (ETT 23-24 cm AYAN) Neck: supple, no lymphadenopathy, no JVD Effort: mildly labored Ascultation: Bilateral: diminished breath sounds, rales Percussion: Bilateral: not dull Cardiovascular: regular rate and rhythm, other (S1,S2) Gastrointestinal: normoactive bowel sounds, soft, non-tender, non-distended Integumentary: normal Extremities: no cyanosis, pink and warm, pulses normal, no ischemia or petechiae, edema (trace) Neurologic: pupils equal and round, unable to assess, other (lethargic to obtunded) Psychiatric: other (unable to assess re: AMS) CBC and BMP: 07/29/20 13:01 08/01/20 04:43 ABG, PT/INR, D-dimer: ABG ABG pH 7.344 pH Units (7.350-7.450) L 08/02/20 11:25 POC ABG pCO2 44.1 mmHg (32.0-48.0) 07/18/20 04:24 ABG pCO2 39.0 mm Hg 08/02/20 11:25 POC ABG pO2 86.8 mmHg (83-108) 07/18/20 04:24 ABG pO2 101.1 mm Hg (80.0-90.0) H 08/02/20 11:25 POC ABG HCO3 25.6 07/18/20 04:24 ABG O2 Saturation 97.5 % (95.0-99.0) 08/02/20 11:25 PT/INR, D-dimer PT 14.2 Sec. (12.2-14.9) 05/29/20 15:10 INR 1.08 (0.87-1.13) 05/29/20 15:10 D-Dimer 2310.15 ng/mlDDU (0-234) H 06/29/20 14:45 Abnormal lab findings: Abnormal Labs 05/28/20 05/28/20 05/28/20 13:29 13:47 13:47 WBC RBC Hgb Hct MCHC RDW 15.3 H Lymph % (Auto) [place] % (Auto) Eos % (Auto) Lymph # [place] # Lymph # (Auto) [place] # (Auto) Eos # (Auto) Seg Neutrophils % Seg Neuts % (Manual) Lymphocytes % (Manual) Seg Neutrophils # Seg Neutrophils # Man Lymphocytes # (Manual) Monocytes % (Manual) Eosinophils % (Manual) Monocytes # (Manual) Eosinophils # (Manual) D-Dimer Heparin Anti-Xa Level ABG pH POC ABG pCO2 POC ABG pO2 ABG pO2 ABG HCO3 ABG O2 Saturation ABG Base Excess ABG Hemoglobin ABG Oxyhemoglobin VBG pH ABG Sodium ABG Potassium ABG Glucose Oxyhemoglobin Sodium Potassium 6.6 H* Chloride 109.2 H Carbon Dioxide 17 L BUN 29 H Creatinine 1.3 H Glucose 265 H POC Glucose 248 H Lactic Acid Calcium 8.1 L Ferritin AST 63 H Alkaline Phosphatase Magnesium Lactate Dehydrogenase Total Creatine Kinase 301 H CK-MB (CK-2) 4.3 H C-Reactive Protein Total Protein 5.4 L Albumin 2.6 L Troponin T HDL Cholesterol Arterial Blood Glucose Urine WBC (Auto) Urine Creatinine Urine Total Protein Phenytoin Coronavirus (PCR) Crossmatch 05/28/20 05/28/20 05/28/20 13:47 13:47 14:46 WBC RBC Hgb Hct MCHC RDW Lymph % (Auto) [place] % (Auto) Eos % (Auto) Lymph # [place] # Lymph # (Auto) [place] # (Auto) Eos # (Auto) Seg Neutrophils % Seg Neuts % (Manual) Lymphocytes % (Manual) Seg Neutrophils # Seg Neutrophils # Man Lymphocytes # (Manual) Monocytes % (Manual) Eosinophils % (Manual) Monocytes # (Manual) Eosinophils # (Manual) D-Dimer Heparin Anti-Xa Level ABG pH POC ABG pCO2 POC ABG pO2 ABG pO2 ABG HCO3 ABG O2 Saturation ABG Base Excess ABG Hemoglobin ABG Oxyhemoglobin VBG pH 7.152 L* ABG Sodium ABG Potassium ABG Glucose Oxyhemoglobin Sodium Potassium 7.2 H* Chloride Carbon Dioxide BUN Creatinine Glucose POC Glucose Lactic Acid 3.40 H* Calcium Ferritin AST Alkaline Phosphatase Magnesium Lactate Dehydrogenase Total Creatine Kinase CK-MB (CK-2) C-Reactive Protein Total Protein Albumin Troponin T HDL Cholesterol Arterial Blood Glucose Urine WBC (Auto) Urine Creatinine Urine Total Protein Phenytoin Coronavirus (PCR) Crossmatch 05/28/20 05/28/20 05/28/20 15:33 15:33 15:51 WBC RBC Hgb Hct MCHC RDW Lymph % (Auto) [place] % (Auto) Eos % (Auto) Lymph # [place] # Lymph # (Auto) [place] # (Auto) Eos # (Auto) Seg Neutrophils % Seg Neuts % (Manual) Lymphocytes % (Manual) Seg Neutrophils # Seg Neutrophils # Man Lymphocytes # (Manual) Monocytes % (Manual) Eosinophils % (Manual) Monocytes # (Manual) Eosinophils # (Manual) D-Dimer 8780.43 H Heparin Anti-Xa Level ABG pH 7.284 L POC ABG pCO2 POC ABG pO2 ABG pO2 273.0 H ABG HCO3 ABG O2 Saturation 99.4 H ABG Base Excess -6.1 L ABG Hemoglobin 17.2 H ABG Oxyhemoglobin VBG pH ABG Sodium ABG Potassium ABG Glucose Oxyhemoglobin Sodium Potassium Chloride Carbon Dioxide BUN Creatinine Glucose 152 H POC Glucose Lactic Acid Calcium Ferritin AST Alkaline Phosphatase Magnesium Lactate Dehydrogenase 365 H Total Creatine Kinase CK-MB (CK-2) C-Reactive Protein Total Protein Albumin Troponin T HDL Cholesterol Arterial Blood Glucose Urine WBC (Auto) Urine Creatinine Urine Total Protein Phenytoin Coronavirus (PCR) Crossmatch 05/28/20 05/28/20 05/28/20 16:30 20:41 23:20 WBC RBC Hgb Hct MCHC RDW Lymph % (Auto) [place] % (Auto) Eos % (Auto) Lymph # [place] # Lymph # (Auto) [place] # (Auto) Eos # (Auto) Seg Neutrophils % Seg Neuts % (Manual) Lymphocytes % (Manual) Seg Neutrophils # Seg Neutrophils # Man Lymphocytes # (Manual) Monocytes % (Manual) Eosinophils % (Manual) Monocytes # (Manual) Eosinophils # (Manual) D-Dimer Heparin Anti-Xa Level ABG pH POC ABG pCO2 POC ABG pO2 ABG pO2 ABG HCO3 ABG O2 Saturation ABG Base Excess ABG Hemoglobin ABG Oxyhemoglobin VBG pH ABG Sodium ABG Potassium ABG Glucose Oxyhemoglobin Sodium Potassium Chloride Carbon Dioxide BUN Creatinine Glucose POC Glucose 225 H 224 H Lactic Acid Calcium Ferritin AST Alkaline Phosphatase Magnesium Lactate Dehydrogenase Total Creatine Kinase CK-MB (CK-2) C-Reactive Protein Total Protein Albumin Troponin T HDL Cholesterol Arterial Blood Glucose Urine WBC (Auto) 17.0 H Urine Creatinine Urine Total Protein Phenytoin Coronavirus (PCR) Crossmatch 05/28/20 05/29/20 05/29/20 Unknown 04:35 04:43 WBC RBC 3.48 L Hgb 9.8 L Hct 29.4 L MCHC RDW 16.0 H Lymph % (Auto) 7.4 L [place] % (Auto) Eos % (Auto) Lymph # 0.7 L [place] # Lymph # (Auto) [place] # (Auto) Eos # (Auto) Seg Neutrophils % 89.1 H Seg Neuts % (Manual) Lymphocytes % (Manual) Seg Neutrophils # 8.1 H Seg Neutrophils # Man Lymphocytes # (Manual) Monocytes % (Manual) Eosinophils % (Manual) Monocytes # (Manual) Eosinophils # (Manual) D-Dimer Heparin Anti-Xa Level ABG pH POC ABG pCO2 POC ABG pO2 ABG pO2 ABG HCO3 19.3 L ABG O2 Saturation ABG Base Excess -4.5 L ABG Hemoglobin 9.7 L ABG Oxyhemoglobin VBG pH ABG Sodium ABG Potassium ABG Glucose Oxyhemoglobin Sodium Potassium Chloride Carbon Dioxide BUN Creatinine Glucose POC Glucose Lactic Acid Calcium Ferritin AST Alkaline Phosphatase Magnesium Lactate Dehydrogenase Total Creatine Kinase CK-MB (CK-2) C-Reactive Protein Total Protein Albumin Troponin T HDL Cholesterol Arterial Blood Glucose Urine WBC (Auto) Urine Creatinine Urine Total Protein Phenytoin Coronavirus (PCR) Positive A Crossmatch 05/29/20 05/29/20 05/29/20 04:43 15:10 17:17 WBC RBC Hgb 9.3 L Hct 28.7 L MCHC RDW Lymph % (Auto) [place] % (Auto) Eos % (Auto) Lymph # [place] # Lymph # (Auto) [place] # (Auto) Eos # (Auto) Seg Neutrophils % Seg Neuts % (Manual) Lymphocytes % (Manual) Seg Neutrophils # Seg Neutrophils # Man Lymphocytes # (Manual) Monocytes % (Manual) Eosinophils % (Manual) Monocytes # (Manual) Eosinophils # (Manual) D-Dimer Heparin Anti-Xa Level ABG pH POC ABG pCO2 POC ABG pO2 ABG pO2 ABG HCO3 ABG O2 Saturation ABG Base Excess ABG Hemoglobin ABG Oxyhemoglobin VBG pH ABG Sodium ABG Potassium ABG Glucose Oxyhemoglobin Sodium Potassium Chloride 110.2 H Carbon Dioxide 18 L BUN 32 H Creatinine 1.4 H Glucose 180 H POC Glucose 147 H Lactic Acid Calcium Ferritin AST Alkaline Phosphatase Magnesium Lactate Dehydrogenase Total Creatine Kinase CK-MB (CK-2) C-Reactive Protein Total Protein Albumin Troponin T HDL Cholesterol Arterial Blood Glucose Urine WBC (Auto) Urine Creatinine Urine Total Protein Phenytoin Coronavirus (PCR) Crossmatch 05/30/20 05/30/20 05/30/20 00:08 00:12 04:15 WBC RBC Hgb Hct MCHC RDW Lymph % (Auto) [place] % (Auto) Eos % (Auto) Lymph # [place] # Lymph # (Auto) [place] # (Auto) Eos # (Auto) Seg Neutrophils % Seg Neuts % (Manual) Lymphocytes % (Manual) Seg Neutrophils # Seg Neutrophils # Man Lymphocytes # (Manual) Monocytes % (Manual) Eosinophils % (Manual) Monocytes # (Manual) Eosinophils # (Manual) D-Dimer Heparin Anti-Xa Level 0.71 H ABG pH 7.460 H POC ABG pCO2 POC ABG pO2 ABG pO2 106.0 H ABG HCO3 18.9 L ABG O2 Saturation ABG Base Excess -4.4 L ABG Hemoglobin 6.8 L ABG Oxyhemoglobin VBG pH ABG Sodium ABG Potassium ABG Glucose Oxyhemoglobin Sodium Potassium Chloride Carbon Dioxide BUN Creatinine Glucose POC Glucose 195 H Lactic Acid Calcium Ferritin AST Alkaline Phosphatase Magnesium Lactate Dehydrogenase Total Creatine Kinase CK-MB (CK-2) C-Reactive Protein Total Protein Albumin Troponin T HDL Cholesterol Arterial Blood Glucose Urine WBC (Auto) Urine Creatinine Urine Total Protein Phenytoin Coronavirus (PCR) Crossmatch 05/30/20 05/30/20 05/30/20 06:07 08:37 12:33 WBC RBC Hgb Hct MCHC RDW Lymph % (Auto) [place] % (Auto) Eos % (Auto) Lymph # [place] # Lymph # (Auto) [place] # (Auto) Eos # (Auto) Seg Neutrophils % Seg Neuts % (Manual) Lymphocytes % (Manual) Seg Neutrophils # Seg Neutrophils # Man Lymphocytes # (Manual) Monocytes % (Manual) Eosinophils % (Manual) Monocytes # (Manual) Eosinophils # (Manual) D-Dimer Heparin Anti-Xa Level 0.85 H ABG pH POC ABG pCO2 POC ABG pO2 ABG pO2 ABG HCO3 ABG O2 Saturation ABG Base Excess ABG Hemoglobin ABG Oxyhemoglobin VBG pH ABG Sodium ABG Potassium ABG Glucose Oxyhemoglobin Sodium Potassium Chloride Carbon Dioxide BUN Creatinine Glucose POC Glucose 182 H 187 H Lactic Acid Calcium Ferritin AST Alkaline Phosphatase Magnesium Lactate Dehydrogenase Total Creatine Kinase CK-MB (CK-2) C-Reactive Protein Total Protein Albumin Troponin T HDL Cholesterol Arterial Blood Glucose Urine WBC (Auto) Urine Creatinine Urine Total Protein Phenytoin Coronavirus (PCR) Crossmatch 05/30/20 05/30/20 05/30/20 15:58 17:57 23:36 WBC RBC Hgb Hct MCHC RDW Lymph % (Auto) [place] % (Auto) Eos % (Auto) Lymph # [place] # Lymph # (Auto) [place] # (Auto) Eos # (Auto) Seg Neutrophils % Seg Neuts % (Manual) Lymphocytes % (Manual) Seg Neutrophils # Seg Neutrophils # Man Lymphocytes # (Manual) Monocytes % (Manual) Eosinophils % (Manual) Monocytes # (Manual) Eosinophils # (Manual) D-Dimer Heparin Anti-Xa Level 1.03 H ABG pH POC ABG pCO2 POC ABG pO2 ABG pO2 ABG HCO3 ABG O2 Saturation ABG Base Excess ABG Hemoglobin ABG Oxyhemoglobin VBG pH ABG Sodium ABG Potassium ABG Glucose Oxyhemoglobin Sodium Potassium Chloride Carbon Dioxide BUN Creatinine Glucose POC Glucose 208 H 185 H Lactic Acid Calcium Ferritin AST Alkaline Phosphatase Magnesium Lactate Dehydrogenase Total Creatine Kinase CK-MB (CK-2) C-Reactive Protein Total Protein Albumin Troponin T HDL Cholesterol Arterial Blood Glucose Urine WBC (Auto) Urine Creatinine Urine Total Protein Phenytoin Coronavirus (PCR) Crossmatch 05/31/20 05/31/20 05/31/20 02:16 03:55 06:16 WBC RBC Hgb 9.2 L Hct 27.5 L MCHC RDW Lymph % (Auto) [place] % (Auto) Eos % (Auto) Lymph # [place] # Lymph # (Auto) [place] # (Auto) Eos # (Auto) Seg Neutrophils % Seg Neuts % (Manual) Lymphocytes % (Manual) Seg Neutrophils # Seg Neutrophils # Man Lymphocytes # (Manual) Monocytes % (Manual) Eosinophils % (Manual) Monocytes # (Manual) Eosinophils # (Manual) D-Dimer Heparin Anti-Xa Level ABG pH POC ABG pCO2 POC ABG pO2 ABG pO2 94.7 H ABG HCO3 18.6 L ABG O2 Saturation ABG Base Excess -5.5 L ABG Hemoglobin 7.9 L ABG Oxyhemoglobin VBG pH ABG Sodium ABG Potassium ABG Glucose Oxyhemoglobin Sodium Potassium Chloride Carbon Dioxide BUN Creatinine Glucose POC Glucose 160 H Lactic Acid Calcium Ferritin AST Alkaline Phosphatase Magnesium Lactate Dehydrogenase Total Creatine Kinase CK-MB (CK-2) C-Reactive Protein Total Protein Albumin Troponin T HDL Cholesterol Arterial Blood Glucose Urine WBC (Auto) Urine Creatinine Urine Total Protein Phenytoin Coronavirus (PCR) Crossmatch 05/31/20 05/31/20 05/31/20 12:20 13:03 18:13 WBC RBC Hgb Hct MCHC RDW Lymph % (Auto) [place] % (Auto) Eos % (Auto) Lymph # [place] # Lymph # (Auto) [place] # (Auto) Eos # (Auto) Seg Neutrophils % Seg Neuts % (Manual) Lymphocytes % (Manual) Seg Neutrophils # Seg Neutrophils # Man Lymphocytes # (Manual) Monocytes % (Manual) Eosinophils % (Manual) Monocytes # (Manual) Eosinophils # (Manual) D-Dimer Heparin Anti-Xa Level ABG pH POC ABG pCO2 POC ABG pO2 ABG pO2 ABG HCO3 ABG O2 Saturation ABG Base Excess ABG Hemoglobin ABG Oxyhemoglobin VBG pH ABG Sodium ABG Potassium ABG Glucose Oxyhemoglobin Sodium Potassium Chloride Carbon Dioxide 18 L BUN 48 H Creatinine 1.6 H Glucose 115 H POC Glucose 128 H 159 H Lactic Acid Calcium 8.3 L Ferritin AST Alkaline Phosphatase Magnesium Lactate Dehydrogenase Total Creatine Kinase CK-MB (CK-2) C-Reactive Protein Total Protein 5.4 L Albumin 2.4 L Troponin T HDL Cholesterol Arterial Blood Glucose Urine WBC (Auto) Urine Creatinine Urine Total Protein Phenytoin Coronavirus (PCR) Crossmatch 05/31/20 06/01/20 06/01/20 23:51 04:00 05:48 WBC RBC Hgb Hct MCHC RDW Lymph % (Auto) [place] % (Auto) Eos % (Auto) Lymph # [place] # Lymph # (Auto) [place] # (Auto) Eos # (Auto) Seg Neutrophils % Seg Neuts % (Manual) Lymphocytes % (Manual) Seg Neutrophils # Seg Neutrophils # Man Lymphocytes # (Manual) Monocytes % (Manual) Eosinophils % (Manual) Monocytes # (Manual) Eosinophils # (Manual) D-Dimer Heparin Anti-Xa Level ABG pH POC ABG pCO2 POC ABG pO2 ABG pO2 109.8 H ABG HCO3 18.8 L ABG O2 Saturation ABG Base Excess -5.9 L ABG Hemoglobin 7.8 L ABG Oxyhemoglobin VBG pH ABG Sodium ABG Potassium ABG Glucose Oxyhemoglobin Sodium Potassium Chloride Carbon Dioxide BUN Creatinine Glucose POC Glucose 171 H 133 H Lactic Acid Calcium Ferritin AST Alkaline Phosphatase Magnesium Lactate Dehydrogenase Total Creatine Kinase CK-MB (CK-2) C-Reactive Protein Total Protein Albumin Troponin T HDL Cholesterol Arterial Blood Glucose Urine WBC (Auto) Urine Creatinine Urine Total Protein Phenytoin Coronavirus (PCR) Crossmatch 06/01/20 06/01/20 06/02/20 12:28 17:29 00:08 WBC RBC Hgb Hct MCHC RDW Lymph % (Auto) [place] % (Auto) Eos % (Auto) Lymph # [place] # Lymph # (Auto) [place] # (Auto) Eos # (Auto) Seg Neutrophils % Seg Neuts % (Manual) Lymphocytes % (Manual) Seg Neutrophils # Seg Neutrophils # Man Lymphocytes # (Manual) Monocytes % (Manual) Eosinophils % (Manual) Monocytes # (Manual) Eosinophils # (Manual) D-Dimer Heparin Anti-Xa Level ABG pH POC ABG pCO2 POC ABG pO2 ABG pO2 ABG HCO3 ABG O2 Saturation ABG Base Excess ABG Hemoglobin ABG Oxyhemoglobin VBG pH ABG Sodium ABG Potassium ABG Glucose Oxyhemoglobin Sodium Potassium Chloride Carbon Dioxide BUN Creatinine Glucose POC Glucose 199 H 209 H 162 H Lactic Acid Calcium Ferritin AST Alkaline Phosphatase Magnesium Lactate Dehydrogenase Total Creatine Kinase CK-MB (CK-2) C-Reactive Protein Total Protein Albumin Troponin T HDL Cholesterol Arterial Blood Glucose Urine WBC (Auto) Urine Creatinine Urine Total Protein Phenytoin Coronavirus (PCR) Crossmatch 06/02/20 06/02/20 06/02/20 04:20 04:20 04:44 WBC RBC Hgb 10.0 L Hct MCHC RDW Lymph % (Auto) [place] % (Auto) Eos % (Auto) Lymph # [place] # Lymph # (Auto) [place] # (Auto) Eos # (Auto) Seg Neutrophils % Seg Neuts % (Manual) Lymphocytes % (Manual) Seg Neutrophils # Seg Neutrophils # Man Lymphocytes # (Manual) Monocytes % (Manual) Eosinophils % (Manual) Monocytes # (Manual) Eosinophils # (Manual) D-Dimer Heparin Anti-Xa Level 0.10 L ABG pH POC ABG pCO2 POC ABG pO2 ABG pO2 150.6 H ABG HCO3 ABG O2 Saturation ABG Base Excess -4.1 L ABG Hemoglobin 11.8 L ABG Oxyhemoglobin VBG pH ABG Sodium ABG Potassium ABG Glucose Oxyhemoglobin Sodium Potassium Chloride Carbon Dioxide BUN Creatinine Glucose POC Glucose Lactic Acid Calcium Ferritin AST Alkaline Phosphatase Magnesium Lactate Dehydrogenase Total Creatine Kinase CK-MB (CK-2) C-Reactive Protein Total Protein Albumin Troponin T HDL Cholesterol Arterial Blood Glucose Urine WBC (Auto) Urine Creatinine Urine Total Protein Phenytoin Coronavirus (PCR) Crossmatch 06/02/20 06/02/20 06/02/20 05:53 12:04 13:49 WBC RBC Hgb Hct MCHC RDW Lymph % (Auto) [place] % (Auto) Eos % (Auto) Lymph # [place] # Lymph # (Auto) [place] # (Auto) Eos # (Auto) Seg Neutrophils % Seg Neuts % (Manual) Lymphocytes % (Manual) Seg Neutrophils # Seg Neutrophils # Man Lymphocytes # (Manual) Monocytes % (Manual) Eosinophils % (Manual) Monocytes # (Manual) Eosinophils # (Manual) D-Dimer Heparin Anti-Xa Level 0.28 L ABG pH POC ABG pCO2 POC ABG pO2 ABG pO2 ABG HCO3 ABG O2 Saturation ABG Base Excess ABG Hemoglobin ABG Oxyhemoglobin VBG pH ABG Sodium ABG Potassium ABG Glucose Oxyhemoglobin Sodium Potassium Chloride Carbon Dioxide BUN Creatinine Glucose POC Glucose 149 H 220 H Lactic Acid Calcium Ferritin AST Alkaline Phosphatase Magnesium Lactate Dehydrogenase Total Creatine Kinase CK-MB (CK-2) C-Reactive Protein Total Protein Albumin Troponin T HDL Cholesterol Arterial Blood Glucose Urine WBC (Auto) Urine Creatinine Urine Total Protein Phenytoin Coronavirus (PCR) Crossmatch 06/02/20 06/02/20 06/03/20 13:49 18:31 00:42 WBC RBC Hgb Hct MCHC RDW Lymph % (Auto) [place] % (Auto) Eos % (Auto) Lymph # [place] # Lymph # (Auto) [place] # (Auto) Eos # (Auto) Seg Neutrophils % Seg Neuts % (Manual) Lymphocytes % (Manual) Seg Neutrophils # Seg Neutrophils # Man Lymphocytes # (Manual) Monocytes % (Manual) Eosinophils % (Manual) Monocytes # (Manual) Eosinophils # (Manual) D-Dimer 769.68 H Heparin Anti-Xa Level ABG pH POC ABG pCO2 POC ABG pO2 ABG pO2 ABG HCO3 ABG O2 Saturation ABG Base Excess ABG Hemoglobin ABG Oxyhemoglobin VBG pH ABG Sodium ABG Potassium ABG Glucose Oxyhemoglobin Sodium Potassium Chloride Carbon Dioxide BUN Creatinine Glucose POC Glucose 225 H 212 H Lactic Acid Calcium Ferritin AST Alkaline Phosphatase Magnesium Lactate Dehydrogenase Total Creatine Kinase CK-MB (CK-2) C-Reactive Protein Total Protein Albumin Troponin T HDL Cholesterol Arterial Blood Glucose Urine WBC (Auto) Urine Creatinine Urine Total Protein Phenytoin Coronavirus (PCR) Crossmatch 06/03/20 06/03/20 06/03/20 05:16 05:16 05:25 WBC 11.4 H RBC Hgb Hct MCHC RDW 16.4 H Lymph % (Auto) [place] % (Auto) Eos % (Auto) Lymph # [place] # Lymph # (Auto) [place] # (Auto) Eos # (Auto) Seg Neutrophils % Seg Neuts % (Manual) Lymphocytes % (Manual) Seg Neutrophils # Seg Neutrophils # Man Lymphocytes # (Manual) Monocytes % (Manual) Eosinophils % (Manual) Monocytes # (Manual) Eosinophils # (Manual) D-Dimer Heparin Anti-Xa Level ABG pH POC ABG pCO2 POC ABG pO2 ABG pO2 160.9 H ABG HCO3 19.4 L ABG O2 Saturation ABG Base Excess -4.9 L ABG Hemoglobin 7.0 L ABG Oxyhemoglobin VBG pH ABG Sodium ABG Potassium ABG Glucose Oxyhemoglobin Sodium Potassium Chloride Carbon Dioxide 18 L BUN 65 H Creatinine 2.0 H Glucose 175 H POC Glucose Lactic Acid Calcium 8.0 L Ferritin AST Alkaline Phosphatase Magnesium Lactate Dehydrogenase Total Creatine Kinase CK-MB (CK-2) C-Reactive Protein Total Protein 5.5 L Albumin 2.2 L Troponin T HDL Cholesterol Arterial Blood Glucose Urine WBC (Auto) Urine Creatinine Urine Total Protein Phenytoin Coronavirus (PCR) Crossmatch 06/03/20 06/03/20 06/03/20 06:07 11:58 18:24 WBC RBC Hgb Hct MCHC RDW Lymph % (Auto) [place] % (Auto) Eos % (Auto) Lymph # [place] # Lymph # (Auto) [place] # (Auto) Eos # (Auto) Seg Neutrophils % Seg Neuts % (Manual) Lymphocytes % (Manual) Seg Neutrophils # Seg Neutrophils # Man Lymphocytes # (Manual) Monocytes % (Manual) Eosinophils % (Manual) Monocytes # (Manual) Eosinophils # (Manual) D-Dimer Heparin Anti-Xa Level ABG pH POC ABG pCO2 POC ABG pO2 ABG pO2 ABG HCO3 ABG O2 Saturation ABG Base Excess ABG Hemoglobin ABG Oxyhemoglobin VBG pH ABG Sodium ABG Potassium ABG Glucose Oxyhemoglobin Sodium Potassium Chloride Carbon Dioxide BUN Creatinine Glucose POC Glucose 177 H 163 H 211 H Lactic Acid Calcium Ferritin AST Alkaline Phosphatase Magnesium Lactate Dehydrogenase Total Creatine Kinase CK-MB (CK-2) C-Reactive Protein Total Protein Albumin Troponin T HDL Cholesterol Arterial Blood Glucose Urine WBC (Auto) Urine Creatinine Urine Total Protein Phenytoin Coronavirus (PCR) Crossmatch 06/03/20 06/03/20 06/04/20 21:50 Unknown 00:26 WBC RBC Hgb Hct MCHC RDW Lymph % (Auto) [place] % (Auto) Eos % (Auto) Lymph # [place] # Lymph # (Auto) [place] # (Auto) Eos # (Auto) Seg Neutrophils % Seg Neuts % (Manual) Lymphocytes % (Manual) Seg Neutrophils # Seg Neutrophils # Man Lymphocytes # (Manual) Monocytes % (Manual) Eosinophils % (Manual) Monocytes # (Manual) Eosinophils # (Manual) D-Dimer Heparin Anti-Xa Level ABG pH POC ABG pCO2 POC ABG pO2 ABG pO2 ABG HCO3 ABG O2 Saturation ABG Base Excess ABG Hemoglobin ABG Oxyhemoglobin VBG pH ABG Sodium ABG Potassium ABG Glucose Oxyhemoglobin Sodium 135 L Potassium Chloride Carbon Dioxide 18 L BUN Creatinine Glucose POC Glucose 241 H Lactic Acid Calcium Ferritin AST Alkaline Phosphatase Magnesium Lactate Dehydrogenase Total Creatine Kinase CK-MB (CK-2) C-Reactive Protein Total Protein Albumin Troponin T HDL Cholesterol Arterial Blood Glucose Urine WBC (Auto) 11.0 H Urine Creatinine Urine Total Protein Phenytoin Coronavirus (PCR) Crossmatch 06/04/20 06/04/20 06/04/20 03:35 04:19 04:19 WBC RBC 3.15 L Hgb 8.9 L Hct 26.8 L D MCHC RDW 15.9 H Lymph % (Auto) 6.0 L [place] % (Auto) Eos % (Auto) Lymph # 0.6 L [place] # Lymph # (Auto) [place] # (Auto) Eos # (Auto) Seg Neutrophils % 86.6 H Seg Neuts % (Manual) Lymphocytes % (Manual) Seg Neutrophils # 9.1 H Seg Neutrophils # Man Lymphocytes # (Manual) Monocytes % (Manual) Eosinophils % (Manual) Monocytes # (Manual) Eosinophils # (Manual) D-Dimer Heparin Anti-Xa Level ABG pH 7.331 L POC ABG pCO2 POC ABG pO2 ABG pO2 ABG HCO3 ABG O2 Saturation ABG Base Excess -4.7 L ABG Hemoglobin 11.0 L ABG Oxyhemoglobin VBG pH ABG Sodium ABG Potassium ABG Glucose Oxyhemoglobin 93.9 L Sodium 136 L Potassium Chloride Carbon Dioxide 20 L BUN 73 H Creatinine 2.0 H Glucose 192 H POC Glucose Lactic Acid Calcium 8.0 L Ferritin AST Alkaline Phosphatase Magnesium Lactate Dehydrogenase 271 H Total Creatine Kinase CK-MB (CK-2) C-Reactive Protein 2.20 H Total Protein 5.0 L Albumin 2.0 L Troponin T HDL Cholesterol Arterial Blood Glucose Urine WBC (Auto) Urine Creatinine Urine Total Protein Phenytoin Coronavirus (PCR) Crossmatch 06/04/20 06/04/20 06/04/20 04:19 05:51 11:48 WBC RBC Hgb Hct MCHC RDW Lymph % (Auto) [place] % (Auto) Eos % (Auto) Lymph # [place] # Lymph # (Auto) [place] # (Auto) Eos # (Auto) Seg Neutrophils % Seg Neuts % (Manual) Lymphocytes % (Manual) Seg Neutrophils # Seg Neutrophils # Man Lymphocytes # (Manual) Monocytes % (Manual) Eosinophils % (Manual) Monocytes # (Manual) Eosinophils # (Manual) D-Dimer 414.52 H Heparin Anti-Xa Level ABG pH POC ABG pCO2 POC ABG pO2 ABG pO2 ABG HCO3 ABG O2 Saturation ABG Base Excess ABG Hemoglobin ABG Oxyhemoglobin VBG pH ABG Sodium ABG Potassium ABG Glucose Oxyhemoglobin Sodium Potassium Chloride Carbon Dioxide BUN Creatinine Glucose POC Glucose 179 H 213 H Lactic Acid Calcium Ferritin AST Alkaline Phosphatase Magnesium Lactate Dehydrogenase Total Creatine Kinase CK-MB (CK-2) C-Reactive Protein Total Protein Albumin Troponin T HDL Cholesterol Arterial Blood Glucose Urine WBC (Auto) Urine Creatinine Urine Total Protein Phenytoin Coronavirus (PCR) Crossmatch 06/04/20 06/05/20 06/05/20 18:25 00:16 05:00 WBC RBC Hgb Hct MCHC RDW Lymph % (Auto) [place] % (Auto) Eos % (Auto) Lymph # [place] # Lymph # (Auto) [place] # (Auto) Eos # (Auto) Seg Neutrophils % Seg Neuts % (Manual) Lymphocytes % (Manual) Seg Neutrophils # Seg Neutrophils # Man Lymphocytes # (Manual) Monocytes % (Manual) Eosinophils % (Manual) Monocytes # (Manual) Eosinophils # (Manual) D-Dimer Heparin Anti-Xa Level ABG pH 7.286 L POC ABG pCO2 POC ABG pO2 ABG pO2 96.2 H ABG HCO3 ABG O2 Saturation ABG Base Excess -6.3 L ABG Hemoglobin 8.8 L ABG Oxyhemoglobin VBG pH ABG Sodium ABG Potassium ABG Glucose Oxyhemoglobin 94.8 L Sodium Potassium Chloride Carbon Dioxide BUN Creatinine Glucose POC Glucose 238 H 183 H Lactic Acid Calcium Ferritin AST Alkaline Phosphatase Magnesium Lactate Dehydrogenase Total Creatine Kinase CK-MB (CK-2) C-Reactive Protein Total Protein Albumin Troponin T HDL Cholesterol Arterial Blood Glucose Urine WBC (Auto) Urine Creatinine Urine Total Protein Phenytoin Coronavirus (PCR) Crossmatch 06/05/20 06/05/20 06/05/20 05:39 07:25 07:25 WBC RBC 2.97 L Hgb 8.7 L Hct 25.7 L MCHC RDW 16.0 H Lymph % (Auto) 8.8 L [place] % (Auto) 13.3 H Eos % (Auto) Lymph # 0.8 L [place] # 1.3 H Lymph # (Auto) [place] # (Auto) Eos # (Auto) Seg Neutrophils % 77.3 H Seg Neuts % (Manual) Lymphocytes % (Manual) Seg Neutrophils # Seg Neutrophils # Man Lymphocytes # (Manual) Monocytes % (Manual) Eosinophils % (Manual) Monocytes # (Manual) Eosinophils # (Manual) D-Dimer Heparin Anti-Xa Level ABG pH POC ABG pCO2 POC ABG pO2 ABG pO2 ABG HCO3 ABG O2 Saturation ABG Base Excess ABG Hemoglobin ABG Oxyhemoglobin VBG pH ABG Sodium ABG Potassium ABG Glucose Oxyhemoglobin Sodium 133 L Potassium Chloride Carbon Dioxide 17 L BUN 89 H Creatinine 2.8 H Glucose 176 H POC Glucose 149 H Lactic Acid Calcium 7.7 L Ferritin AST Alkaline Phosphatase Magnesium Lactate Dehydrogenase Total Creatine Kinase CK-MB (CK-2) C-Reactive Protein Total Protein 4.2 L Albumin 1.9 L Troponin T HDL Cholesterol Arterial Blood Glucose Urine WBC (Auto) Urine Creatinine Urine Total Protein Phenytoin Coronavirus (PCR) Crossmatch 06/05/20 06/05/20 06/05/20 07:25 12:05 15:41 WBC RBC Hgb Hct MCHC RDW Lymph % (Auto) [place] % (Auto) Eos % (Auto) Lymph # [place] # Lymph # (Auto) [place] # (Auto) Eos # (Auto) Seg Neutrophils % Seg Neuts % (Manual) Lymphocytes % (Manual) Seg Neutrophils # Seg Neutrophils # Man Lymphocytes # (Manual) Monocytes % (Manual) Eosinophils % (Manual) Monocytes # (Manual) Eosinophils # (Manual) D-Dimer Heparin Anti-Xa Level 0.76 H 0.81 H ABG pH POC ABG pCO2 POC ABG pO2 ABG pO2 ABG HCO3 ABG O2 Saturation ABG Base Excess ABG Hemoglobin ABG Oxyhemoglobin VBG pH ABG Sodium ABG Potassium ABG Glucose Oxyhemoglobin Sodium Potassium Chloride Carbon Dioxide BUN Creatinine Glucose POC Glucose 198 H Lactic Acid Calcium Ferritin AST Alkaline Phosphatase Magnesium Lactate Dehydrogenase Total Creatine Kinase CK-MB (CK-2) C-Reactive Protein Total Protein Albumin Troponin T HDL Cholesterol Arterial Blood Glucose Urine WBC (Auto) Urine Creatinine Urine Total Protein Phenytoin Coronavirus (PCR) Crossmatch 06/05/20 06/05/20 06/06/20 18:08 23:25 04:00 WBC RBC Hgb Hct MCHC RDW Lymph % (Auto) [place] % (Auto) Eos % (Auto) Lymph # [place] # Lymph # (Auto) [place] # (Auto) Eos # (Auto) Seg Neutrophils % Seg Neuts % (Manual) Lymphocytes % (Manual) Seg Neutrophils # Seg Neutrophils # Man Lymphocytes # (Manual) Monocytes % (Manual) Eosinophils % (Manual) Monocytes # (Manual) Eosinophils # (Manual) D-Dimer Heparin Anti-Xa Level ABG pH POC ABG pCO2 POC ABG pO2 ABG pO2 ABG HCO3 ABG O2 Saturation ABG Base Excess ABG Hemoglobin ABG Oxyhemoglobin VBG pH ABG Sodium ABG Potassium ABG Glucose Oxyhemoglobin Sodium Potassium Chloride Carbon Dioxide BUN Creatinine Glucose POC Glucose 223 H 169 H Lactic Acid Calcium Ferritin AST Alkaline Phosphatase Magnesium Lactate Dehydrogenase Total Creatine Kinase CK-MB (CK-2) C-Reactive Protein Total Protein Albumin Troponin T HDL Cholesterol Arterial Blood Glucose Urine WBC (Auto) 15.0 H Urine Creatinine Urine Total Protein Phenytoin Coronavirus (PCR) Crossmatch 06/06/20 06/06/20 06/06/20 04:00 05:33 05:38 WBC RBC 2.97 L Hgb 8.7 L Hct 26.8 L MCHC RDW 16.8 H Lymph % (Auto) [place] % (Auto) Eos % (Auto) Lymph # [place] # Lymph # (Auto) [place] # (Auto) Eos # (Auto) Seg Neutrophils % Seg Neuts % (Manual) Lymphocytes % (Manual) Seg Neutrophils # Seg Neutrophils # Man Lymphocytes # (Manual) Monocytes % (Manual) Eosinophils % (Manual) Monocytes # (Manual) Eosinophils # (Manual) D-Dimer Heparin Anti-Xa Level ABG pH POC ABG pCO2 POC ABG pO2 ABG pO2 ABG HCO3 ABG O2 Saturation ABG Base Excess ABG Hemoglobin ABG Oxyhemoglobin VBG pH ABG Sodium ABG Potassium ABG Glucose Oxyhemoglobin Sodium Potassium Chloride Carbon Dioxide BUN Creatinine Glucose POC Glucose 186 H Lactic Acid Calcium Ferritin AST Alkaline Phosphatase Magnesium Lactate Dehydrogenase Total Creatine Kinase CK-MB (CK-2) C-Reactive Protein Total Protein Albumin Troponin T HDL Cholesterol Arterial Blood Glucose Urine WBC (Auto) Urine Creatinine 82.2 H Urine Total Protein 196 H Phenytoin Coronavirus (PCR) Crossmatch 06/06/20 06/06/20 06/06/20 05:38 12:25 17:03 WBC RBC Hgb Hct MCHC RDW Lymph % (Auto) [place] % (Auto) Eos % (Auto) Lymph # [place] # Lymph # (Auto) [place] # (Auto) Eos # (Auto) Seg Neutrophils % Seg Neuts % (Manual) Lymphocytes % (Manual) Seg Neutrophils # Seg Neutrophils # Man Lymphocytes # (Manual) Monocytes % (Manual) Eosinophils % (Manual) Monocytes # (Manual) Eosinophils # (Manual) D-Dimer Heparin Anti-Xa Level ABG pH POC ABG pCO2 POC ABG pO2 ABG pO2 ABG HCO3 ABG O2 Saturation ABG Base Excess ABG Hemoglobin ABG Oxyhemoglobin VBG pH ABG Sodium ABG Potassium ABG Glucose Oxyhemoglobin Sodium 134 L Potassium 5.2 H Chloride Carbon Dioxide 18 L BUN 97 H Creatinine 2.5 H Glucose 193 H POC Glucose 239 H 252 H Lactic Acid Calcium 7.5 L Ferritin AST Alkaline Phosphatase Magnesium Lactate Dehydrogenase Total Creatine Kinase CK-MB (CK-2) C-Reactive Protein Total Protein 4.1 L Albumin 1.9 L Troponin T HDL Cholesterol Arterial Blood Glucose Urine WBC (Auto) Urine Creatinine Urine Total Protein Phenytoin Coronavirus (PCR) Crossmatch 06/07/20 06/07/20 06/07/20 00:16 01:49 04:00 WBC RBC 2.91 L Hgb 8.4 L Hct 25.0 L MCHC RDW 16.1 H Lymph % (Auto) 5.7 L [place] % (Auto) 10.5 H Eos % (Auto) Lymph # 0.6 L [place] # 1.1 H Lymph # (Auto) [place] # (Auto) Eos # (Auto) Seg Neutrophils % 83.6 H Seg Neuts % (Manual) Lymphocytes % (Manual) Seg Neutrophils # 9.1 H Seg Neutrophils # Man Lymphocytes # (Manual) Monocytes % (Manual) Eosinophils % (Manual) Monocytes # (Manual) Eosinophils # (Manual) D-Dimer Heparin Anti-Xa Level 0.26 L ABG pH POC ABG pCO2 POC ABG pO2 ABG pO2 ABG HCO3 ABG O2 Saturation ABG Base Excess ABG Hemoglobin ABG Oxyhemoglobin VBG pH ABG Sodium ABG Potassium ABG Glucose Oxyhemoglobin Sodium Potassium Chloride Carbon Dioxide BUN Creatinine Glucose POC Glucose 173 H Lactic Acid Calcium Ferritin AST Alkaline Phosphatase Magnesium Lactate Dehydrogenase Total Creatine Kinase CK-MB (CK-2) C-Reactive Protein Total Protein Albumin Troponin T HDL Cholesterol Arterial Blood Glucose Urine WBC (Auto) Urine Creatinine Urine Total Protein Phenytoin Coronavirus (PCR) Crossmatch 06/07/20 06/07/20 06/07/20 04:00 04:54 05:51 WBC RBC Hgb Hct MCHC RDW Lymph % (Auto) [place] % (Auto) Eos % (Auto) Lymph # [place] # Lymph # (Auto) [place] # (Auto) Eos # (Auto) Seg Neutrophils % Seg Neuts % (Manual) Lymphocytes % (Manual) Seg Neutrophils # Seg Neutrophils # Man Lymphocytes # (Manual) Monocytes % (Manual) Eosinophils % (Manual) Monocytes # (Manual) Eosinophils # (Manual) D-Dimer Heparin Anti-Xa Level ABG pH 7.317 L POC ABG pCO2 POC ABG pO2 ABG pO2 71.4 L ABG HCO3 ABG O2 Saturation 94.3 L ABG Base Excess -4.8 L ABG Hemoglobin 7.1 L ABG Oxyhemoglobin VBG pH ABG Sodium ABG Potassium ABG Glucose Oxyhemoglobin 92.2 L Sodium 133 L Potassium Chloride Carbon Dioxide 18 L BUN 100 H Creatinine 2.5 H Glucose 158 H POC Glucose 168 H Lactic Acid Calcium 7.6 L Ferritin AST Alkaline Phosphatase Magnesium Lactate Dehydrogenase Total Creatine Kinase CK-MB (CK-2) C-Reactive Protein Total Protein 4.7 L Albumin 2.0 L Troponin T HDL Cholesterol Arterial Blood Glucose Urine WBC (Auto) Urine Creatinine Urine Total Protein Phenytoin Coronavirus (PCR) Crossmatch 06/07/20 06/07/20 06/07/20 12:03 17:17 20:10 WBC RBC Hgb Hct MCHC RDW Lymph % (Auto) [place] % (Auto) Eos % (Auto) Lymph # [place] # Lymph # (Auto) [place] # (Auto) Eos # (Auto) Seg Neutrophils % Seg Neuts % (Manual) Lymphocytes % (Manual) Seg Neutrophils # Seg Neutrophils # Man Lymphocytes # (Manual) Monocytes % (Manual) Eosinophils % (Manual) Monocytes # (Manual) Eosinophils # (Manual) D-Dimer Heparin Anti-Xa Level 0.17 L ABG pH POC ABG pCO2 POC ABG pO2 ABG pO2 ABG HCO3 ABG O2 Saturation ABG Base Excess ABG Hemoglobin ABG Oxyhemoglobin VBG pH ABG Sodium ABG Potassium ABG Glucose Oxyhemoglobin Sodium Potassium Chloride Carbon Dioxide BUN Creatinine Glucose POC Glucose 276 H 281 H Lactic Acid Calcium Ferritin AST Alkaline Phosphatase Magnesium Lactate Dehydrogenase Total Creatine Kinase CK-MB (CK-2) C-Reactive Protein Total Protein Albumin Troponin T HDL Cholesterol Arterial Blood Glucose Urine WBC (Auto) Urine Creatinine Urine Total Protein Phenytoin Coronavirus (PCR) Crossmatch 06/08/20 06/08/20 06/08/20 00:02 04:47 04:47 WBC 16.4 H RBC 3.07 L Hgb 8.6 L Hct 26.5 L MCHC RDW 16.3 H Lymph % (Auto) [place] % (Auto) Eos % (Auto) Lymph # [place] # Lymph # (Auto) [place] # (Auto) Eos # (Auto) Seg Neutrophils % Seg Neuts % (Manual) 90.0 H Lymphocytes % (Manual) 3.0 L Seg Neutrophils # Seg Neutrophils # Man 14.8 H Lymphocytes # (Manual) 0.5 L Monocytes % (Manual) Eosinophils % (Manual) Monocytes # (Manual) 1.1 H Eosinophils # (Manual) D-Dimer Heparin Anti-Xa Level ABG pH POC ABG pCO2 POC ABG pO2 ABG pO2 ABG HCO3 ABG O2 Saturation ABG Base Excess ABG Hemoglobin ABG Oxyhemoglobin VBG pH ABG Sodium ABG Potassium ABG Glucose Oxyhemoglobin Sodium 129 L Potassium Chloride 95.6 L Carbon Dioxide 17 L BUN 106 H Creatinine 2.5 H Glucose 213 H POC Glucose 242 H Lactic Acid Calcium 7.6 L Ferritin AST Alkaline Phosphatase Magnesium Lactate Dehydrogenase Total Creatine Kinase CK-MB (CK-2) C-Reactive Protein Total Protein 5.0 L Albumin 2.1 L Troponin T HDL Cholesterol Arterial Blood Glucose Urine WBC (Auto) Urine Creatinine Urine Total Protein Phenytoin Coronavirus (PCR) Crossmatch 06/08/20 06/08/20 06/08/20 05:40 11:55 17:54 WBC RBC Hgb Hct MCHC RDW Lymph % (Auto) [place] % (Auto) Eos % (Auto) Lymph # [place] # Lymph # (Auto) [place] # (Auto) Eos # (Auto) Seg Neutrophils % Seg Neuts % (Manual) Lymphocytes % (Manual) Seg Neutrophils # Seg Neutrophils # Man Lymphocytes # (Manual) Monocytes % (Manual) Eosinophils % (Manual) Monocytes # (Manual) Eosinophils # (Manual) D-Dimer Heparin Anti-Xa Level ABG pH POC ABG pCO2 POC ABG pO2 ABG pO2 ABG HCO3 ABG O2 Saturation ABG Base Excess ABG Hemoglobin ABG Oxyhemoglobin VBG pH ABG Sodium ABG Potassium ABG Glucose Oxyhemoglobin Sodium Potassium Chloride Carbon Dioxide BUN Creatinine Glucose POC Glucose 221 H 218 H 163 H Lactic Acid Calcium Ferritin AST Alkaline Phosphatase Magnesium Lactate Dehydrogenase Total Creatine Kinase CK-MB (CK-2) C-Reactive Protein Total Protein Albumin Troponin T HDL Cholesterol Arterial Blood Glucose Urine WBC (Auto) Urine Creatinine Urine Total Protein Phenytoin Coronavirus (PCR) Crossmatch 06/08/20 06/09/20 06/09/20 22:01 00:09 05:16 WBC 19.0 H RBC 3.35 L Hgb 9.2 L Hct 28.5 L MCHC RDW 16.3 H Lymph % (Auto) [place] % (Auto) Eos % (Auto) Lymph # [place] # Lymph # (Auto) [place] # (Auto) Eos # (Auto) Seg Neutrophils % Seg Neuts % (Manual) 85.0 H Lymphocytes % (Manual) 7.0 L Seg Neutrophils # Seg Neutrophils # Man 16.2 H Lymphocytes # (Manual) Monocytes % (Manual) Eosinophils % (Manual) Monocytes # (Manual) 1.3 H Eosinophils # (Manual) D-Dimer Heparin Anti-Xa Level ABG pH POC ABG pCO2 POC ABG pO2 ABG pO2 ABG HCO3 ABG O2 Saturation ABG Base Excess ABG Hemoglobin ABG Oxyhemoglobin VBG pH ABG Sodium ABG Potassium ABG Glucose Oxyhemoglobin Sodium Potassium Chloride Carbon Dioxide BUN Creatinine Glucose POC Glucose 182 H 150 H Lactic Acid Calcium Ferritin AST Alkaline Phosphatase Magnesium Lactate Dehydrogenase Total Creatine Kinase CK-MB (CK-2) C-Reactive Protein Total Protein Albumin Troponin T HDL Cholesterol Arterial Blood Glucose Urine WBC (Auto) Urine Creatinine Urine Total Protein Phenytoin Coronavirus (PCR) Crossmatch 06/09/20 06/09/20 06/09/20 05:16 05:24 11:29 WBC RBC Hgb Hct MCHC RDW Lymph % (Auto) [place] % (Auto) Eos % (Auto) Lymph # [place] # Lymph # (Auto) [place] # (Auto) Eos # (Auto) Seg Neutrophils % Seg Neuts % (Manual) Lymphocytes % (Manual) Seg Neutrophils # Seg Neutrophils # Man Lymphocytes # (Manual) Monocytes % (Manual) Eosinophils % (Manual) Monocytes # (Manual) Eosinophils # (Manual) D-Dimer Heparin Anti-Xa Level ABG pH POC ABG pCO2 POC ABG pO2 ABG pO2 ABG HCO3 ABG O2 Saturation ABG Base Excess ABG Hemoglobin ABG Oxyhemoglobin VBG pH ABG Sodium ABG Potassium ABG Glucose Oxyhemoglobin Sodium 133 L Potassium Chloride Carbon Dioxide 19 L BUN 109 H Creatinine 2.1 H Glucose 133 H POC Glucose 128 H 119 H Lactic Acid Calcium 7.7 L Ferritin AST Alkaline Phosphatase < 5 L Magnesium Lactate Dehydrogenase Total Creatine Kinase CK-MB (CK-2) C-Reactive Protein Total Protein 4.6 L Albumin < 0.2 L Troponin T HDL Cholesterol Arterial Blood Glucose Urine WBC (Auto) Urine Creatinine Urine Total Protein Phenytoin Coronavirus (PCR) Crossmatch 06/09/20 06/10/20 06/10/20 17:32 00:00 05:49 WBC RBC Hgb Hct MCHC RDW Lymph % (Auto) [place] % (Auto) Eos % (Auto) Lymph # [place] # Lymph # (Auto) [place] # (Auto) Eos # (Auto) Seg Neutrophils % Seg Neuts % (Manual) Lymphocytes % (Manual) Seg Neutrophils # Seg Neutrophils # Man Lymphocytes # (Manual) Monocytes % (Manual) Eosinophils % (Manual) Monocytes # (Manual) Eosinophils # (Manual) D-Dimer Heparin Anti-Xa Level 0.19 L ABG pH POC ABG pCO2 POC ABG pO2 ABG pO2 ABG HCO3 ABG O2 Saturation ABG Base Excess ABG Hemoglobin ABG Oxyhemoglobin VBG pH ABG Sodium ABG Potassium ABG Glucose Oxyhemoglobin Sodium Potassium Chloride Carbon Dioxide BUN Creatinine Glucose POC Glucose 106 H 117 H Lactic Acid Calcium Ferritin AST Alkaline Phosphatase Magnesium Lactate Dehydrogenase Total Creatine Kinase CK-MB (CK-2) C-Reactive Protein Total Protein Albumin Troponin T HDL Cholesterol Arterial Blood Glucose Urine WBC (Auto) Urine Creatinine Urine Total Protein Phenytoin Coronavirus (PCR) Crossmatch 06/10/20 06/10/20 06/10/20 05:54 07:40 11:40 WBC RBC Hgb Hct MCHC RDW Lymph % (Auto) [place] % (Auto) Eos % (Auto) Lymph # [place] # Lymph # (Auto) [place] # (Auto) Eos # (Auto) Seg Neutrophils % Seg Neuts % (Manual) Lymphocytes % (Manual) Seg Neutrophils # Seg Neutrophils # Man Lymphocytes # (Manual) Monocytes % (Manual) Eosinophils % (Manual) Monocytes # (Manual) Eosinophils # (Manual) D-Dimer Heparin Anti-Xa Level ABG pH POC ABG pCO2 POC ABG pO2 ABG pO2 ABG HCO3 ABG O2 Saturation ABG Base Excess ABG Hemoglobin ABG Oxyhemoglobin VBG pH ABG Sodium ABG Potassium ABG Glucose Oxyhemoglobin Sodium 146 H D Potassium Chloride Carbon Dioxide 20 L BUN 99 H Creatinine 1.9 H Glucose 121 H POC Glucose 127 H 138 H Lactic Acid Calcium 8.2 L Ferritin AST Alkaline Phosphatase Magnesium Lactate Dehydrogenase Total Creatine Kinase CK-MB (CK-2) C-Reactive Protein Total Protein Albumin Troponin T HDL Cholesterol Arterial Blood Glucose Urine WBC (Auto) Urine Creatinine Urine Total Protein Phenytoin Coronavirus (PCR) Crossmatch 06/10/20 06/10/20 06/10/20 14:44 17:31 23:22 WBC RBC Hgb Hct MCHC RDW Lymph % (Auto) [place] % (Auto) Eos % (Auto) Lymph # [place] # Lymph # (Auto) [place] # (Auto) Eos # (Auto) Seg Neutrophils % Seg Neuts % (Manual) Lymphocytes % (Manual) Seg Neutrophils # Seg Neutrophils # Man Lymphocytes # (Manual) Monocytes % (Manual) Eosinophils % (Manual) Monocytes # (Manual) Eosinophils # (Manual) D-Dimer Heparin Anti-Xa Level 0.17 L ABG pH POC ABG pCO2 POC ABG pO2 ABG pO2 ABG HCO3 ABG O2 Saturation ABG Base Excess ABG Hemoglobin ABG Oxyhemoglobin VBG pH ABG Sodium ABG Potassium ABG Glucose Oxyhemoglobin Sodium Potassium Chloride Carbon Dioxide BUN Creatinine Glucose POC Glucose 128 H 114 H Lactic Acid Calcium Ferritin AST Alkaline Phosphatase Magnesium Lactate Dehydrogenase Total Creatine Kinase CK-MB (CK-2) C-Reactive Protein Total Protein Albumin Troponin T HDL Cholesterol Arterial Blood Glucose Urine WBC (Auto) Urine Creatinine Urine Total Protein Phenytoin Coronavirus (PCR) Crossmatch 06/11/20 06/11/20 06/11/20 00:22 03:45 03:45 WBC 14.6 H RBC 2.77 L Hgb 7.9 L Hct 24.3 L MCHC RDW 16.8 H Lymph % (Auto) 6.6 L [place] % (Auto) 8.5 H Eos % (Auto) Lymph # 1.0 L [place] # 1.2 H Lymph # (Auto) [place] # (Auto) Eos # (Auto) Seg Neutrophils % 82.9 H Seg Neuts % (Manual) Lymphocytes % (Manual) Seg Neutrophils # 12.1 H Seg Neutrophils # Man Lymphocytes # (Manual) Monocytes % (Manual) Eosinophils % (Manual) Monocytes # (Manual) Eosinophils # (Manual) D-Dimer Heparin Anti-Xa Level 0.24 L ABG pH POC ABG pCO2 POC ABG pO2 ABG pO2 ABG HCO3 ABG O2 Saturation ABG Base Excess ABG Hemoglobin ABG Oxyhemoglobin VBG pH ABG Sodium ABG Potassium ABG Glucose Oxyhemoglobin Sodium Potassium Chloride Carbon Dioxide 20 L BUN 88 H Creatinine 1.5 H Glucose 111 H POC Glucose Lactic Acid Calcium 8.2 L Ferritin AST Alkaline Phosphatase Magnesium Lactate Dehydrogenase Total Creatine Kinase CK-MB (CK-2) C-Reactive Protein Total Protein Albumin Troponin T HDL Cholesterol Arterial Blood Glucose Urine WBC (Auto) Urine Creatinine Urine Total Protein Phenytoin Coronavirus (PCR) Crossmatch 0906/11/20 06/11/20 06:03 10:22 11:11 WBC RBC Hgb Hct MCHC RDW Lymph % (Auto) [place] % (Auto) Eos % (Auto) Lymph # [place] # Lymph # (Auto) [place] # (Auto) Eos # (Auto) Seg Neutrophils % Seg Neuts % (Manual) Lymphocytes % (Manual) Seg Neutrophils # Seg Neutrophils # Man Lymphocytes # (Manual) Monocytes % (Manual) Eosinophils % (Manual) Monocytes # (Manual) Eosinophils # (Manual) D-Dimer Heparin Anti-Xa Level 0.26 L ABG pH POC ABG pCO2 POC ABG pO2 ABG pO2 ABG HCO3 ABG O2 Saturation ABG Base Excess ABG Hemoglobin 9.6 L ABG Oxyhemoglobin VBG pH ABG Sodium ABG Potassium ABG Glucose Oxyhemoglobin Sodium Potassium Chloride Carbon Dioxide BUN Creatinine Glucose POC Glucose 114 H Lactic Acid Calcium Ferritin AST Alkaline Phosphatase Magnesium Lactate Dehydrogenase Total Creatine Kinase CK-MB (CK-2) C-Reactive Protein Total Protein Albumin Troponin T HDL Cholesterol Arterial Blood Glucose Urine WBC (Auto) Urine Creatinine Urine Total Protein Phenytoin Coronavirus (PCR) Crossmatch 06/11/20 06/11/20 06/12/20 12:24 17:24 00:21 WBC RBC Hgb Hct MCHC RDW Lymph % (Auto) [place] % (Auto) Eos % (Auto) Lymph # [place] # Lymph # (Auto) [place] # (Auto) Eos # (Auto) Seg Neutrophils % Seg Neuts % (Manual) Lymphocytes % (Manual) Seg Neutrophils # Seg Neutrophils # Man Lymphocytes # (Manual) Monocytes % (Manual) Eosinophils % (Manual) Monocytes # (Manual) Eosinophils # (Manual) D-Dimer Heparin Anti-Xa Level ABG pH POC ABG pCO2 POC ABG pO2 ABG pO2 ABG HCO3 ABG O2 Saturation ABG Base Excess ABG Hemoglobin ABG Oxyhemoglobin VBG pH ABG Sodium ABG Potassium ABG Glucose Oxyhemoglobin Sodium Potassium Chloride Carbon Dioxide BUN Creatinine Glucose POC Glucose 119 H 126 H 117 H Lactic Acid Calcium Ferritin AST Alkaline Phosphatase Magnesium Lactate Dehydrogenase Total Creatine Kinase CK-MB (CK-2) C-Reactive Protein Total Protein Albumin Troponin T HDL Cholesterol Arterial Blood Glucose Urine WBC (Auto) Urine Creatinine Urine Total Protein Phenytoin Coronavirus (PCR) Crossmatch 06/12/20 06/12/20 06/12/20 02:46 02:46 05:46 WBC 13.2 H RBC 2.83 L Hgb 8.3 L Hct 24.3 L MCHC RDW 16.6 H Lymph % (Auto) 6.2 L [place] % (Auto) 9.5 H Eos % (Auto) Lymph # 0.8 L [place] # 1.3 H Lymph # (Auto) [place] # (Auto) Eos # (Auto) Seg Neutrophils % 81.9 H Seg Neuts % (Manual) Lymphocytes % (Manual) Seg Neutrophils # 10.9 H Seg Neutrophils # Man Lymphocytes # (Manual) Monocytes % (Manual) Eosinophils % (Manual) Monocytes # (Manual) Eosinophils # (Manual) D-Dimer Heparin Anti-Xa Level ABG pH POC ABG pCO2 POC ABG pO2 ABG pO2 ABG HCO3 ABG O2 Saturation ABG Base Excess ABG Hemoglobin ABG Oxyhemoglobin VBG pH ABG Sodium ABG Potassium ABG Glucose Oxyhemoglobin Sodium Potassium 3.5 L Chloride Carbon Dioxide BUN 77 H Creatinine 1.3 H Glucose POC Glucose 132 H Lactic Acid Calcium 8.3 L Ferritin AST Alkaline Phosphatase Magnesium Lactate Dehydrogenase Total Creatine Kinase CK-MB (CK-2) C-Reactive Protein Total Protein Albumin Troponin T HDL Cholesterol Arterial Blood Glucose Urine WBC (Auto) Urine Creatinine Urine Total Protein Phenytoin Coronavirus (PCR) Crossmatch 06/12/20 06/12/20 06/12/20 09:20 12:16 17:48 WBC RBC Hgb Hct MCHC RDW Lymph % (Auto) [place] % (Auto) Eos % (Auto) Lymph # [place] # Lymph # (Auto) [place] # (Auto) Eos # (Auto) Seg Neutrophils % Seg Neuts % (Manual) Lymphocytes % (Manual) Seg Neutrophils # Seg Neutrophils # Man Lymphocytes # (Manual) Monocytes % (Manual) Eosinophils % (Manual) Monocytes # (Manual) Eosinophils # (Manual) D-Dimer Heparin Anti-Xa Level ABG pH POC ABG pCO2 POC ABG pO2 ABG pO2 91.1 H ABG HCO3 ABG O2 Saturation ABG Base Excess ABG Hemoglobin ABG Oxyhemoglobin VBG pH ABG Sodium ABG Potassium ABG Glucose Oxyhemoglobin 94.8 L Sodium Potassium Chloride Carbon Dioxide BUN Creatinine Glucose POC Glucose 167 H 182 H Lactic Acid Calcium Ferritin AST Alkaline Phosphatase Magnesium Lactate Dehydrogenase Total Creatine Kinase CK-MB (CK-2) C-Reactive Protein Total Protein Albumin Troponin T HDL Cholesterol Arterial Blood Glucose Urine WBC (Auto) Urine Creatinine Urine Total Protein Phenytoin Coronavirus (PCR) Crossmatch 06/13/20 06/13/20 06/13/20 00:08 05:37 09:09 WBC RBC Hgb Hct MCHC RDW Lymph % (Auto) [place] % (Auto) Eos % (Auto) Lymph # [place] # Lymph # (Auto) [place] # (Auto) Eos # (Auto) Seg Neutrophils % Seg Neuts % (Manual) Lymphocytes % (Manual) Seg Neutrophils # Seg Neutrophils # Man Lymphocytes # (Manual) Monocytes % (Manual) Eosinophils % (Manual) Monocytes # (Manual) Eosinophils # (Manual) D-Dimer Heparin Anti-Xa Level 0.86 H ABG pH POC ABG pCO2 POC ABG pO2 ABG pO2 ABG HCO3 ABG O2 Saturation ABG Base Excess ABG Hemoglobin ABG Oxyhemoglobin VBG pH ABG Sodium ABG Potassium ABG Glucose Oxyhemoglobin Sodium Potassium Chloride Carbon Dioxide BUN Creatinine Glucose POC Glucose 142 H 119 H Lactic Acid Calcium Ferritin AST Alkaline Phosphatase Magnesium Lactate Dehydrogenase Total Creatine Kinase CK-MB (CK-2) C-Reactive Protein Total Protein Albumin Troponin T HDL Cholesterol Arterial Blood Glucose Urine WBC (Auto) Urine Creatinine Urine Total Protein Phenytoin Coronavirus (PCR) Crossmatch 06/13/20 06/13/20 06/13/20 12:28 17:55 21:17 WBC RBC Hgb Hct MCHC RDW Lymph % (Auto) [place] % (Auto) Eos % (Auto) Lymph # [place] # Lymph # (Auto) [place] # (Auto) Eos # (Auto) Seg Neutrophils % Seg Neuts % (Manual) Lymphocytes % (Manual) Seg Neutrophils # Seg Neutrophils # Man Lymphocytes # (Manual) Monocytes % (Manual) Eosinophils % (Manual) Monocytes # (Manual) Eosinophils # (Manual) D-Dimer Heparin Anti-Xa Level ABG pH POC ABG pCO2 POC ABG pO2 ABG pO2 ABG HCO3 ABG O2 Saturation ABG Base Excess ABG Hemoglobin ABG Oxyhemoglobin VBG pH ABG Sodium ABG Potassium ABG Glucose Oxyhemoglobin Sodium Potassium Chloride Carbon Dioxide BUN 61 H Creatinine Glucose 131 H POC Glucose 165 H 174 H Lactic Acid Calcium Ferritin AST Alkaline Phosphatase Magnesium Lactate Dehydrogenase Total Creatine Kinase CK-MB (CK-2) C-Reactive Protein Total Protein Albumin Troponin T HDL Cholesterol Arterial Blood Glucose Urine WBC (Auto) Urine Creatinine Urine Total Protein Phenytoin Coronavirus (PCR) Crossmatch 06/13/20 06/13/20 06/14/20 21:17 23:50 05:34 WBC RBC Hgb Hct MCHC RDW Lymph % (Auto) [place] % (Auto) Eos % (Auto) Lymph # [place] # Lymph # (Auto) [place] # (Auto) Eos # (Auto) Seg Neutrophils % Seg Neuts % (Manual) Lymphocytes % (Manual) Seg Neutrophils # Seg Neutrophils # Man Lymphocytes # (Manual) Monocytes % (Manual) Eosinophils % (Manual) Monocytes # (Manual) Eosinophils # (Manual) D-Dimer Heparin Anti-Xa Level 0.72 H ABG pH POC ABG pCO2 POC ABG pO2 ABG pO2 ABG HCO3 ABG O2 Saturation ABG Base Excess ABG Hemoglobin ABG Oxyhemoglobin VBG pH ABG Sodium ABG Potassium ABG Glucose Oxyhemoglobin Sodium 146 H Potassium Chloride 107.6 H Carbon Dioxide BUN 61 H Creatinine 1.3 H Glucose 135 H POC Glucose 146 H Lactic Acid Calcium Ferritin AST Alkaline Phosphatase Magnesium Lactate Dehydrogenase Total Creatine Kinase CK-MB (CK-2) C-Reactive Protein Total Protein Albumin Troponin T HDL Cholesterol Arterial Blood Glucose Urine WBC (Auto) Urine Creatinine Urine Total Protein Phenytoin Coronavirus (PCR) Crossmatch 06/14/20 06/14/20 06/14/20 06:11 09:28 11:30 WBC RBC Hgb Hct MCHC RDW Lymph % (Auto) [place] % (Auto) Eos % (Auto) Lymph # [place] # Lymph # (Auto) [place] # (Auto) Eos # (Auto) Seg Neutrophils % Seg Neuts % (Manual) Lymphocytes % (Manual) Seg Neutrophils # Seg Neutrophils # Man Lymphocytes # (Manual) Monocytes % (Manual) Eosinophils % (Manual) Monocytes # (Manual) Eosinophils # (Manual) D-Dimer Heparin Anti-Xa Level 0.90 H ABG pH POC ABG pCO2 POC ABG pO2 ABG pO2 ABG HCO3 ABG O2 Saturation ABG Base Excess ABG Hemoglobin ABG Oxyhemoglobin VBG pH ABG Sodium ABG Potassium ABG Glucose Oxyhemoglobin Sodium Potassium Chloride Carbon Dioxide BUN Creatinine Glucose POC Glucose 141 H 186 H Lactic Acid Calcium Ferritin AST Alkaline Phosphatase Magnesium Lactate Dehydrogenase Total Creatine Kinase CK-MB (CK-2) C-Reactive Protein Total Protein Albumin Troponin T HDL Cholesterol Arterial Blood Glucose Urine WBC (Auto) Urine Creatinine Urine Total Protein Phenytoin Coronavirus (PCR) Crossmatch 06/14/20 06/14/20 06/14/20 16:07 18:16 23:51 WBC RBC Hgb Hct MCHC RDW Lymph % (Auto) [place] % (Auto) Eos % (Auto) Lymph # [place] # Lymph # (Auto) [place] # (Auto) Eos # (Auto) Seg Neutrophils % Seg Neuts % (Manual) Lymphocytes % (Manual) Seg Neutrophils # Seg Neutrophils # Man Lymphocytes # (Manual) Monocytes % (Manual) Eosinophils % (Manual) Monocytes # (Manual) Eosinophils # (Manual) D-Dimer Heparin Anti-Xa Level 0.82 H ABG pH POC ABG pCO2 POC ABG pO2 ABG pO2 ABG HCO3 ABG O2 Saturation ABG Base Excess ABG Hemoglobin ABG Oxyhemoglobin VBG pH ABG Sodium ABG Potassium ABG Glucose Oxyhemoglobin Sodium Potassium Chloride Carbon Dioxide BUN Creatinine Glucose POC Glucose 106 H 154 H Lactic Acid Calcium Ferritin AST Alkaline Phosphatase Magnesium Lactate Dehydrogenase Total Creatine Kinase CK-MB (CK-2) C-Reactive Protein Total Protein Albumin Troponin T HDL Cholesterol Arterial Blood Glucose Urine WBC (Auto) Urine Creatinine Urine Total Protein Phenytoin Coronavirus (PCR) Crossmatch 06/15/20 06/15/20 06/15/20 04:24 04:24 05:59 WBC RBC 2.75 L Hgb 7.9 L Hct 24.0 L MCHC RDW 16.4 H Lymph % (Auto) 12.9 L [place] % (Auto) 8.7 H Eos % (Auto) 4.6 H Lymph # 1.1 L [place] # Lymph # (Auto) [place] # (Auto) Eos # (Auto) Seg Neutrophils % 73.2 H Seg Neuts % (Manual) Lymphocytes % (Manual) Seg Neutrophils # Seg Neutrophils # Man Lymphocytes # (Manual) Monocytes % (Manual) Eosinophils % (Manual) Monocytes # (Manual) Eosinophils # (Manual) D-Dimer Heparin Anti-Xa Level ABG pH POC ABG pCO2 POC ABG pO2 ABG pO2 ABG HCO3 ABG O2 Saturation ABG Base Excess ABG Hemoglobin ABG Oxyhemoglobin VBG pH ABG Sodium ABG Potassium ABG Glucose Oxyhemoglobin Sodium Potassium 3.4 L Chloride Carbon Dioxide BUN 55 H Creatinine 1.3 H Glucose 142 H POC Glucose 131 H Lactic Acid Calcium Ferritin AST Alkaline Phosphatase Magnesium Lactate Dehydrogenase Total Creatine Kinase CK-MB (CK-2) C-Reactive Protein Total Protein Albumin Troponin T HDL Cholesterol Arterial Blood Glucose Urine WBC (Auto) Urine Creatinine Urine Total Protein Phenytoin Coronavirus (PCR) Crossmatch 06/15/20 06/15/20 06/16/20 12:33 17:07 00:22 WBC RBC Hgb Hct MCHC RDW Lymph % (Auto) [place] % (Auto) Eos % (Auto) Lymph # [place] # Lymph # (Auto) [place] # (Auto) Eos # (Auto) Seg Neutrophils % Seg Neuts % (Manual) Lymphocytes % (Manual) Seg Neutrophils # Seg Neutrophils # Man Lymphocytes # (Manual) Monocytes % (Manual) Eosinophils % (Manual) Monocytes # (Manual) Eosinophils # (Manual) D-Dimer Heparin Anti-Xa Level 0.21 L ABG pH POC ABG pCO2 POC ABG pO2 ABG pO2 ABG HCO3 ABG O2 Saturation ABG Base Excess ABG Hemoglobin ABG Oxyhemoglobin VBG pH ABG Sodium ABG Potassium ABG Glucose Oxyhemoglobin Sodium Potassium Chloride Carbon Dioxide BUN Creatinine Glucose POC Glucose 180 H 185 H Lactic Acid Calcium Ferritin AST Alkaline Phosphatase Magnesium Lactate Dehydrogenase Total Creatine Kinase CK-MB (CK-2) C-Reactive Protein Total Protein Albumin Troponin T HDL Cholesterol Arterial Blood Glucose Urine WBC (Auto) Urine Creatinine Urine Total Protein Phenytoin Coronavirus (PCR) Crossmatch 06/16/20 06/16/20 06/16/20 01:45 08:06 09:15 WBC RBC Hgb Hct MCHC RDW Lymph % (Auto) [place] % (Auto) Eos % (Auto) Lymph # [place] # Lymph # (Auto) [place] # (Auto) Eos # (Auto) Seg Neutrophils % Seg Neuts % (Manual) Lymphocytes % (Manual) Seg Neutrophils # Seg Neutrophils # Man Lymphocytes # (Manual) Monocytes % (Manual) Eosinophils % (Manual) Monocytes # (Manual) Eosinophils # (Manual) D-Dimer Heparin Anti-Xa Level ABG pH POC ABG pCO2 POC ABG pO2 ABG pO2 ABG HCO3 ABG O2 Saturation ABG Base Excess ABG Hemoglobin ABG Oxyhemoglobin VBG pH ABG Sodium ABG Potassium ABG Glucose Oxyhemoglobin Sodium Potassium Chloride Carbon Dioxide BUN 49 H Creatinine Glucose 154 H POC Glucose 140 H 171 H Lactic Acid Calcium Ferritin AST Alkaline Phosphatase Magnesium Lactate Dehydrogenase Total Creatine Kinase CK-MB (CK-2) C-Reactive Protein Total Protein Albumin Troponin T HDL Cholesterol Arterial Blood Glucose Urine WBC (Auto) Urine Creatinine Urine Total Protein Phenytoin Coronavirus (PCR) Crossmatch 06/16/20 06/16/20 06/16/20 10:46 12:33 17:54 WBC RBC Hgb Hct MCHC RDW Lymph % (Auto) [place] % (Auto) Eos % (Auto) Lymph # [place] # Lymph # (Auto) [place] # (Auto) Eos # (Auto) Seg Neutrophils % Seg Neuts % (Manual) Lymphocytes % (Manual) Seg Neutrophils # Seg Neutrophils # Man Lymphocytes # (Manual) Monocytes % (Manual) Eosinophils % (Manual) Monocytes # (Manual) Eosinophils # (Manual) D-Dimer Heparin Anti-Xa Level 0.12 L ABG pH POC ABG pCO2 POC ABG pO2 ABG pO2 ABG HCO3 ABG O2 Saturation ABG Base Excess ABG Hemoglobin ABG Oxyhemoglobin VBG pH ABG Sodium ABG Potassium ABG Glucose Oxyhemoglobin Sodium Potassium Chloride Carbon Dioxide BUN Creatinine Glucose POC Glucose 166 H 151 H Lactic Acid Calcium Ferritin AST Alkaline Phosphatase Magnesium Lactate Dehydrogenase Total Creatine Kinase CK-MB (CK-2) C-Reactive Protein Total Protein Albumin Troponin T HDL Cholesterol Arterial Blood Glucose Urine WBC (Auto) Urine Creatinine Urine Total Protein Phenytoin Coronavirus (PCR) Crossmatch 06/16/20 06/17/20 06/17/20 18:47 00:00 02:19 WBC RBC Hgb Hct MCHC RDW Lymph % (Auto) [place] % (Auto) Eos % (Auto) Lymph # [place] # Lymph # (Auto) [place] # (Auto) Eos # (Auto) Seg Neutrophils % Seg Neuts % (Manual) Lymphocytes % (Manual) Seg Neutrophils # Seg Neutrophils # Man Lymphocytes # (Manual) Monocytes % (Manual) Eosinophils % (Manual) Monocytes # (Manual) Eosinophils # (Manual) D-Dimer Heparin Anti-Xa Level 0.73 H 0.77 H ABG pH POC ABG pCO2 POC ABG pO2 ABG pO2 ABG HCO3 ABG O2 Saturation ABG Base Excess ABG Hemoglobin ABG Oxyhemoglobin VBG pH ABG Sodium ABG Potassium ABG Glucose Oxyhemoglobin Sodium Potassium Chloride Carbon Dioxide BUN Creatinine Glucose POC Glucose 139 H Lactic Acid Calcium Ferritin AST Alkaline Phosphatase Magnesium Lactate Dehydrogenase Total Creatine Kinase CK-MB (CK-2) C-Reactive Protein Total Protein Albumin Troponin T HDL Cholesterol Arterial Blood Glucose Urine WBC (Auto) Urine Creatinine Urine Total Protein Phenytoin Coronavirus (PCR) Crossmatch 06/17/20 06/17/20 06/17/20 06:07 11:42 16:43 WBC RBC Hgb Hct MCHC RDW Lymph % (Auto) [place] % (Auto) Eos % (Auto) Lymph # [place] # Lymph # (Auto) [place] # (Auto) Eos # (Auto) Seg Neutrophils % Seg Neuts % (Manual) Lymphocytes % (Manual) Seg Neutrophils # Seg Neutrophils # Man Lymphocytes # (Manual) Monocytes % (Manual) Eosinophils % (Manual) Monocytes # (Manual) Eosinophils # (Manual) D-Dimer Heparin Anti-Xa Level 0.73 H ABG pH POC ABG pCO2 POC ABG pO2 ABG pO2 ABG HCO3 ABG O2 Saturation ABG Base Excess ABG Hemoglobin ABG Oxyhemoglobin VBG pH ABG Sodium ABG Potassium ABG Glucose Oxyhemoglobin Sodium Potassium Chloride Carbon Dioxide BUN Creatinine Glucose POC Glucose 169 H 169 H Lactic Acid Calcium Ferritin AST Alkaline Phosphatase Magnesium Lactate Dehydrogenase Total Creatine Kinase CK-MB (CK-2) C-Reactive Protein Total Protein Albumin Troponin T HDL Cholesterol Arterial Blood Glucose Urine WBC (Auto) Urine Creatinine Urine Total Protein Phenytoin Coronavirus (PCR) Crossmatch 06/17/20 06/17/20 06/17/20 18:18 23:08 23:16 WBC RBC Hgb Hct MCHC RDW Lymph % (Auto) [place] % (Auto) Eos % (Auto) Lymph # [place] # Lymph # (Auto) [place] # (Auto) Eos # (Auto) Seg Neutrophils % Seg Neuts % (Manual) Lymphocytes % (Manual) Seg Neutrophils # Seg Neutrophils # Man Lymphocytes # (Manual) Monocytes % (Manual) Eosinophils % (Manual) Monocytes # (Manual) Eosinophils # (Manual) D-Dimer Heparin Anti-Xa Level 0.71 H ABG pH POC ABG pCO2 POC ABG pO2 ABG pO2 ABG HCO3 ABG O2 Saturation ABG Base Excess ABG Hemoglobin ABG Oxyhemoglobin VBG pH ABG Sodium ABG Potassium ABG Glucose Oxyhemoglobin Sodium Potassium Chloride Carbon Dioxide BUN Creatinine Glucose POC Glucose 159 H 134 H Lactic Acid Calcium Ferritin AST Alkaline Phosphatase Magnesium Lactate Dehydrogenase Total Creatine Kinase CK-MB (CK-2) C-Reactive Protein Total Protein Albumin Troponin T HDL Cholesterol Arterial Blood Glucose Urine WBC (Auto) Urine Creatinine Urine Total Protein Phenytoin Coronavirus (PCR) Crossmatch 0906/18/20 06/18/20 04:42 05:52 11:50 WBC RBC Hgb Hct MCHC RDW Lymph % (Auto) [place] % (Auto) Eos % (Auto) Lymph # [place] # Lymph # (Auto) [place] # (Auto) Eos # (Auto) Seg Neutrophils % Seg Neuts % (Manual) Lymphocytes % (Manual) Seg Neutrophils # Seg Neutrophils # Man Lymphocytes # (Manual) Monocytes % (Manual) Eosinophils % (Manual) Monocytes # (Manual) Eosinophils # (Manual) D-Dimer Heparin Anti-Xa Level ABG pH POC ABG pCO2 POC ABG pO2 ABG pO2 ABG HCO3 ABG O2 Saturation ABG Base Excess ABG Hemoglobin ABG Oxyhemoglobin VBG pH ABG Sodium ABG Potassium ABG Glucose Oxyhemoglobin Sodium Potassium Chloride Carbon Dioxide BUN 44 H Creatinine Glucose 115 H POC Glucose 171 H 167 H Lactic Acid Calcium Ferritin AST Alkaline Phosphatase Magnesium Lactate Dehydrogenase Total Creatine Kinase CK-MB (CK-2) C-Reactive Protein Total Protein Albumin Troponin T HDL Cholesterol Arterial Blood Glucose Urine WBC (Auto) Urine Creatinine Urine Total Protein Phenytoin Coronavirus (PCR) Crossmatch 06/18/20 06/19/20 06/19/20 23:46 05:48 07:52 WBC RBC Hgb Hct MCHC RDW Lymph % (Auto) [place] % (Auto) Eos % (Auto) Lymph # [place] # Lymph # (Auto) [place] # (Auto) Eos # (Auto) Seg Neutrophils % Seg Neuts % (Manual) Lymphocytes % (Manual) Seg Neutrophils # Seg Neutrophils # Man Lymphocytes # (Manual) Monocytes % (Manual) Eosinophils % (Manual) Monocytes # (Manual) Eosinophils # (Manual) D-Dimer Heparin Anti-Xa Level ABG pH POC ABG pCO2 POC ABG pO2 ABG pO2 ABG HCO3 ABG O2 Saturation ABG Base Excess ABG Hemoglobin ABG Oxyhemoglobin VBG pH ABG Sodium ABG Potassium ABG Glucose Oxyhemoglobin Sodium Potassium Chloride Carbon Dioxide BUN Creatinine Glucose POC Glucose 130 H 207 H 175 H Lactic Acid Calcium Ferritin AST Alkaline Phosphatase Magnesium Lactate Dehydrogenase Total Creatine Kinase CK-MB (CK-2) C-Reactive Protein Total Protein Albumin Troponin T HDL Cholesterol Arterial Blood Glucose Urine WBC (Auto) Urine Creatinine Urine Total Protein Phenytoin Coronavirus (PCR) Crossmatch 06/19/20 06/19/20 06/20/20 11:42 22:54 05:17 WBC RBC Hgb Hct MCHC RDW Lymph % (Auto) [place] % (Auto) Eos % (Auto) Lymph # [place] # Lymph # (Auto) [place] # (Auto) Eos # (Auto) Seg Neutrophils % Seg Neuts % (Manual) Lymphocytes % (Manual) Seg Neutrophils # Seg Neutrophils # Man Lymphocytes # (Manual) Monocytes % (Manual) Eosinophils % (Manual) Monocytes # (Manual) Eosinophils # (Manual) D-Dimer Heparin Anti-Xa Level ABG pH POC ABG pCO2 POC ABG pO2 ABG pO2 ABG HCO3 ABG O2 Saturation ABG Base Excess ABG Hemoglobin ABG Oxyhemoglobin VBG pH ABG Sodium ABG Potassium ABG Glucose Oxyhemoglobin Sodium Potassium Chloride Carbon Dioxide BUN Creatinine Glucose POC Glucose 166 H 135 H 218 H Lactic Acid Calcium Ferritin AST Alkaline Phosphatase Magnesium Lactate Dehydrogenase Total Creatine Kinase CK-MB (CK-2) C-Reactive Protein Total Protein Albumin Troponin T HDL Cholesterol Arterial Blood Glucose Urine WBC (Auto) Urine Creatinine Urine Total Protein Phenytoin Coronavirus (PCR) Crossmatch 06/20/20 06/20/20 06/20/20 12:04 16:25 16:35 WBC RBC Hgb Hct MCHC RDW Lymph % (Auto) [place] % (Auto) Eos % (Auto) Lymph # [place] # Lymph # (Auto) [place] # (Auto) Eos # (Auto) Seg Neutrophils % Seg Neuts % (Manual) Lymphocytes % (Manual) Seg Neutrophils # Seg Neutrophils # Man Lymphocytes # (Manual) Monocytes % (Manual) Eosinophils % (Manual) Monocytes # (Manual) Eosinophils # (Manual) D-Dimer Heparin Anti-Xa Level ABG pH POC ABG pCO2 POC ABG pO2 ABG pO2 59.6 L ABG HCO3 28.7 H ABG O2 Saturation 93.5 L ABG Base Excess 3.4 H ABG Hemoglobin 7.2 L ABG Oxyhemoglobin VBG pH ABG Sodium ABG Potassium ABG Glucose Oxyhemoglobin 91.3 L Sodium Potassium Chloride Carbon Dioxide BUN Creatinine Glucose POC Glucose 194 H 137 H Lactic Acid Calcium Ferritin AST Alkaline Phosphatase Magnesium Lactate Dehydrogenase Total Creatine Kinase CK-MB (CK-2) C-Reactive Protein Total Protein Albumin Troponin T HDL Cholesterol Arterial Blood Glucose Urine WBC (Auto) Urine Creatinine Urine Total Protein Phenytoin Coronavirus (PCR) Crossmatch 06/20/20 06/21/20 06/21/20 23:59 06:25 12:01 WBC RBC Hgb Hct MCHC RDW Lymph % (Auto) [place] % (Auto) Eos % (Auto) Lymph # [place] # Lymph # (Auto) [place] # (Auto) Eos # (Auto) Seg Neutrophils % Seg Neuts % (Manual) Lymphocytes % (Manual) Seg Neutrophils # Seg Neutrophils # Man Lymphocytes # (Manual) Monocytes % (Manual) Eosinophils % (Manual) Monocytes # (Manual) Eosinophils # (Manual) D-Dimer Heparin Anti-Xa Level ABG pH POC ABG pCO2 POC ABG pO2 ABG pO2 ABG HCO3 ABG O2 Saturation ABG Base Excess ABG Hemoglobin ABG Oxyhemoglobin VBG pH ABG Sodium ABG Potassium ABG Glucose Oxyhemoglobin Sodium Potassium Chloride Carbon Dioxide BUN Creatinine Glucose POC Glucose 156 H 177 H 195 H Lactic Acid Calcium Ferritin AST Alkaline Phosphatase Magnesium Lactate Dehydrogenase Total Creatine Kinase CK-MB (CK-2) C-Reactive Protein Total Protein Albumin Troponin T HDL Cholesterol Arterial Blood Glucose Urine WBC (Auto) Urine Creatinine Urine Total Protein Phenytoin Coronavirus (PCR) Crossmatch 06/21/20 06/21/20 06/22/20 17:04 21:51 05:06 WBC RBC Hgb Hct MCHC RDW Lymph % (Auto) [place] % (Auto) Eos % (Auto) Lymph # [place] # Lymph # (Auto) [place] # (Auto) Eos # (Auto) Seg Neutrophils % Seg Neuts % (Manual) Lymphocytes % (Manual) Seg Neutrophils # Seg Neutrophils # Man Lymphocytes # (Manual) Monocytes % (Manual) Eosinophils % (Manual) Monocytes # (Manual) Eosinophils # (Manual) D-Dimer Heparin Anti-Xa Level ABG pH POC ABG pCO2 POC ABG pO2 ABG pO2 ABG HCO3 ABG O2 Saturation ABG Base Excess ABG Hemoglobin ABG Oxyhemoglobin VBG pH ABG Sodium ABG Potassium ABG Glucose Oxyhemoglobin Sodium Potassium Chloride Carbon Dioxide BUN Creatinine Glucose POC Glucose 156 H 154 H 167 H Lactic Acid Calcium Ferritin AST Alkaline Phosphatase Magnesium Lactate Dehydrogenase Total Creatine Kinase CK-MB (CK-2) C-Reactive Protein Total Protein Albumin Troponin T HDL Cholesterol Arterial Blood Glucose Urine WBC (Auto) Urine Creatinine Urine Total Protein Phenytoin Coronavirus (PCR) Crossmatch 06/22/20 06/22/20 06/22/20 11:20 15:27 16:58 WBC RBC Hgb Hct MCHC RDW Lymph % (Auto) [place] % (Auto) Eos % (Auto) Lymph # [place] # Lymph # (Auto) [place] # (Auto) Eos # (Auto) Seg Neutrophils % Seg Neuts % (Manual) Lymphocytes % (Manual) Seg Neutrophils # Seg Neutrophils # Man Lymphocytes # (Manual) Monocytes % (Manual) Eosinophils % (Manual) Monocytes # (Manual) Eosinophils # (Manual) D-Dimer Heparin Anti-Xa Level ABG pH 7.206 L POC ABG pCO2 79.9 H POC ABG pO2 ABG pO2 ABG HCO3 ABG O2 Saturation ABG Base Excess ABG Hemoglobin 8.3 L ABG Oxyhemoglobin VBG pH ABG Sodium ABG Potassium ABG Glucose Oxyhemoglobin Sodium Potassium Chloride Carbon Dioxide BUN Creatinine Glucose POC Glucose 181 H 230 H Lactic Acid Calcium Ferritin AST Alkaline Phosphatase Magnesium Lactate Dehydrogenase Total Creatine Kinase CK-MB (CK-2) C-Reactive Protein Total Protein Albumin Troponin T HDL Cholesterol Arterial Blood Glucose Urine WBC (Auto) Urine Creatinine Urine Total Protein Phenytoin Coronavirus (PCR) Crossmatch 06/22/20 06/23/20 06/23/20 22:26 05:49 05:49 WBC RBC 2.58 L Hgb 7.4 L Hct 23.2 L MCHC RDW 17.0 H Lymph % (Auto) [place] % (Auto) 11.2 H Eos % (Auto) Lymph # 1.0 L [place] # Lymph # (Auto) [place] # (Auto) Eos # (Auto) Seg Neutrophils % Seg Neuts % (Manual) Lymphocytes % (Manual) Seg Neutrophils # Seg Neutrophils # Man Lymphocytes # (Manual) Monocytes % (Manual) Eosinophils % (Manual) Monocytes # (Manual) Eosinophils # (Manual) D-Dimer Heparin Anti-Xa Level ABG pH POC ABG pCO2 POC ABG pO2 ABG pO2 ABG HCO3 ABG O2 Saturation ABG Base Excess ABG Hemoglobin ABG Oxyhemoglobin VBG pH ABG Sodium ABG Potassium ABG Glucose Oxyhemoglobin Sodium Potassium Chloride Carbon Dioxide BUN 68 H Creatinine 2.4 H Glucose 198 H POC Glucose 195 H Lactic Acid Calcium Ferritin AST Alkaline Phosphatase Magnesium Lactate Dehydrogenase Total Creatine Kinase CK-MB (CK-2) C-Reactive Protein Total Protein Albumin Troponin T HDL Cholesterol Arterial Blood Glucose Urine WBC (Auto) Urine Creatinine Urine Total Protein Phenytoin Coronavirus (PCR) Crossmatch 06/23/20 06/23/20 06/23/20 05:50 12:29 12:34 WBC RBC Hgb Hct MCHC RDW Lymph % (Auto) [place] % (Auto) Eos % (Auto) Lymph # [place] # Lymph # (Auto) [place] # (Auto) Eos # (Auto) Seg Neutrophils % Seg Neuts % (Manual) Lymphocytes % (Manual) Seg Neutrophils # Seg Neutrophils # Man Lymphocytes # (Manual) Monocytes % (Manual) Eosinophils % (Manual) Monocytes # (Manual) Eosinophils # (Manual) D-Dimer Heparin Anti-Xa Level ABG pH POC ABG pCO2 54.7 H POC ABG pO2 68.8 L ABG pO2 ABG HCO3 ABG O2 Saturation ABG Base Excess ABG Hemoglobin 9.8 L ABG Oxyhemoglobin 92.6 L VBG pH ABG Sodium ABG Potassium ABG Glucose Oxyhemoglobin Sodium Potassium Chloride Carbon Dioxide BUN Creatinine Glucose POC Glucose 202 H 218 H Lactic Acid Calcium Ferritin AST Alkaline Phosphatase Magnesium Lactate Dehydrogenase Total Creatine Kinase CK-MB (CK-2) C-Reactive Protein Total Protein Albumin Troponin T HDL Cholesterol Arterial Blood Glucose Urine WBC (Auto) Urine Creatinine Urine Total Protein Phenytoin Coronavirus (PCR) Crossmatch 06/23/20 06/23/20 06/24/20 16:02 22:22 01:06 WBC RBC Hgb Hct MCHC RDW Lymph % (Auto) [place] % (Auto) Eos % (Auto) Lymph # [place] # Lymph # (Auto) [place] # (Auto) Eos # (Auto) Seg Neutrophils % Seg Neuts % (Manual) Lymphocytes % (Manual) Seg Neutrophils # Seg Neutrophils # Man Lymphocytes # (Manual) Monocytes % (Manual) Eosinophils % (Manual) Monocytes # (Manual) Eosinophils # (Manual) D-Dimer Heparin Anti-Xa Level ABG pH POC ABG pCO2 POC ABG pO2 ABG pO2 ABG HCO3 ABG O2 Saturation ABG Base Excess ABG Hemoglobin ABG Oxyhemoglobin VBG pH ABG Sodium ABG Potassium ABG Glucose Oxyhemoglobin Sodium Potassium Chloride Carbon Dioxide BUN Creatinine Glucose POC Glucose 190 H 166 H 171 H Lactic Acid Calcium Ferritin AST Alkaline Phosphatase Magnesium Lactate Dehydrogenase Total Creatine Kinase CK-MB (CK-2) C-Reactive Protein Total Protein Albumin Troponin T HDL Cholesterol Arterial Blood Glucose Urine WBC (Auto) Urine Creatinine Urine Total Protein Phenytoin Coronavirus (PCR) Crossmatch 06/24/20 06/24/20 06/24/20 04:48 05:35 11:48 WBC RBC Hgb Hct MCHC RDW Lymph % (Auto) [place] % (Auto) Eos % (Auto) Lymph # [place] # Lymph # (Auto) [place] # (Auto) Eos # (Auto) Seg Neutrophils % Seg Neuts % (Manual) Lymphocytes % (Manual) Seg Neutrophils # Seg Neutrophils # Man Lymphocytes # (Manual) Monocytes % (Manual) Eosinophils % (Manual) Monocytes # (Manual) Eosinophils # (Manual) D-Dimer Heparin Anti-Xa Level ABG pH POC ABG pCO2 POC ABG pO2 ABG pO2 ABG HCO3 ABG O2 Saturation ABG Base Excess ABG Hemoglobin ABG Oxyhemoglobin VBG pH ABG Sodium ABG Potassium ABG Glucose Oxyhemoglobin Sodium Potassium Chloride Carbon Dioxide BUN 75 H Creatinine 2.6 H Glucose 179 H POC Glucose 172 H 153 H Lactic Acid Calcium Ferritin AST Alkaline Phosphatase Magnesium Lactate Dehydrogenase Total Creatine Kinase CK-MB (CK-2) C-Reactive Protein Total Protein Albumin Troponin T HDL Cholesterol Arterial Blood Glucose Urine WBC (Auto) Urine Creatinine Urine Total Protein Phenytoin Coronavirus (PCR) Crossmatch 06/24/20 06/24/20 06/25/20 16:38 21:52 12:00 WBC RBC Hgb Hct MCHC RDW Lymph % (Auto) [place] % (Auto) Eos % (Auto) Lymph # [place] # Lymph # (Auto) [place] # (Auto) Eos # (Auto) Seg Neutrophils % Seg Neuts % (Manual) Lymphocytes % (Manual) Seg Neutrophils # Seg Neutrophils # Man Lymphocytes # (Manual) Monocytes % (Manual) Eosinophils % (Manual) Monocytes # (Manual) Eosinophils # (Manual) D-Dimer Heparin Anti-Xa Level ABG pH POC ABG pCO2 POC ABG pO2 ABG pO2 ABG HCO3 ABG O2 Saturation ABG Base Excess ABG Hemoglobin ABG Oxyhemoglobin VBG pH ABG Sodium ABG Potassium ABG Glucose Oxyhemoglobin Sodium Potassium Chloride Carbon Dioxide BUN Creatinine Glucose POC Glucose 123 H 115 H 203 H Lactic Acid Calcium Ferritin AST Alkaline Phosphatase Magnesium Lactate Dehydrogenase Total Creatine Kinase CK-MB (CK-2) C-Reactive Protein Total Protein Albumin Troponin T HDL Cholesterol Arterial Blood Glucose Urine WBC (Auto) Urine Creatinine Urine Total Protein Phenytoin Coronavirus (PCR) Crossmatch 06/25/20 06/25/20 06/25/20 15:43 16:37 23:02 WBC RBC Hgb Hct MCHC RDW Lymph % (Auto) [place] % (Auto) Eos % (Auto) Lymph # [place] # Lymph # (Auto) [place] # (Auto) Eos # (Auto) Seg Neutrophils % Seg Neuts % (Manual) Lymphocytes % (Manual) Seg Neutrophils # Seg Neutrophils # Man Lymphocytes # (Manual) Monocytes % (Manual) Eosinophils % (Manual) Monocytes # (Manual) Eosinophils # (Manual) D-Dimer Heparin Anti-Xa Level ABG pH POC ABG pCO2 POC ABG pO2 ABG pO2 ABG HCO3 ABG O2 Saturation ABG Base Excess ABG Hemoglobin ABG Oxyhemoglobin VBG pH ABG Sodium ABG Potassium ABG Glucose Oxyhemoglobin Sodium Potassium Chloride Carbon Dioxide BUN 71 H Creatinine 1.8 H Glucose 170 H POC Glucose 191 H 126 H Lactic Acid Calcium 8.2 L Ferritin AST Alkaline Phosphatase Magnesium Lactate Dehydrogenase Total Creatine Kinase CK-MB (CK-2) C-Reactive Protein Total Protein Albumin Troponin T HDL Cholesterol Arterial Blood Glucose Urine WBC (Auto) Urine Creatinine Urine Total Protein Phenytoin Coronavirus (PCR) Crossmatch 06/26/20 06/26/20 06/26/20 06:34 06:34 09:27 WBC RBC 2.41 L Hgb 6.9 L Hct 21.5 L MCHC RDW 16.7 H Lymph % (Auto) 10.9 L [place] % (Auto) 9.6 H Eos % (Auto) Lymph # 0.7 L [place] # Lymph # (Auto) [place] # (Auto) Eos # (Auto) Seg Neutrophils % 75.4 H Seg Neuts % (Manual) Lymphocytes % (Manual) Seg Neutrophils # Seg Neutrophils # Man Lymphocytes # (Manual) Monocytes % (Manual) Eosinophils % (Manual) Monocytes # (Manual) Eosinophils # (Manual) D-Dimer Heparin Anti-Xa Level ABG pH POC ABG pCO2 POC ABG pO2 ABG pO2 ABG HCO3 ABG O2 Saturation ABG Base Excess ABG Hemoglobin ABG Oxyhemoglobin VBG pH ABG Sodium ABG Potassium ABG Glucose Oxyhemoglobin Sodium Potassium Chloride Carbon Dioxide BUN 77 H Creatinine 1.9 H Glucose 190 H POC Glucose Lactic Acid Calcium Ferritin AST Alkaline Phosphatase Magnesium Lactate Dehydrogenase Total Creatine Kinase CK-MB (CK-2) C-Reactive Protein Total Protein Albumin Troponin T HDL Cholesterol Arterial Blood Glucose Urine WBC (Auto) Urine Creatinine Urine Total Protein Phenytoin Coronavirus (PCR) Crossmatch See Detail 06/26/20 06/26/20 06/26/20 12:15 16:28 17:28 WBC RBC Hgb Hct MCHC RDW Lymph % (Auto) [place] % (Auto) Eos % (Auto) Lymph # [place] # Lymph # (Auto) [place] # (Auto) Eos # (Auto) Seg Neutrophils % Seg Neuts % (Manual) Lymphocytes % (Manual) Seg Neutrophils # Seg Neutrophils # Man Lymphocytes # (Manual) Monocytes % (Manual) Eosinophils % (Manual) Monocytes # (Manual) Eosinophils # (Manual) D-Dimer Heparin Anti-Xa Level ABG pH POC ABG pCO2 POC ABG pO2 ABG pO2 ABG HCO3 ABG O2 Saturation ABG Base Excess ABG Hemoglobin ABG Oxyhemoglobin VBG pH ABG Sodium ABG Potassium ABG Glucose Oxyhemoglobin Sodium Potassium Chloride Carbon Dioxide BUN Creatinine Glucose POC Glucose 187 H 149 H 189 H Lactic Acid Calcium Ferritin AST Alkaline Phosphatase Magnesium Lactate Dehydrogenase Total Creatine Kinase CK-MB (CK-2) C-Reactive Protein Total Protein Albumin Troponin T HDL Cholesterol Arterial Blood Glucose Urine WBC (Auto) Urine Creatinine Urine Total Protein Phenytoin Coronavirus (PCR) Crossmatch 06/26/20 06/26/20 06/26/20 18:30 18:30 18:30 WBC RBC 2.87 L Hgb 8.2 L Hct 25.9 L MCHC RDW 17.8 H Lymph % (Auto) [place] % (Auto) Eos % (Auto) Lymph # [place] # Lymph # (Auto) [place] # (Auto) Eos # (Auto) Seg Neutrophils % Seg Neuts % (Manual) 83.0 H Lymphocytes % (Manual) 8.0 L Seg Neutrophils # Seg Neutrophils # Man Lymphocytes # (Manual) 0.6 L Monocytes % (Manual) Eosinophils % (Manual) Monocytes # (Manual) Eosinophils # (Manual) D-Dimer Heparin Anti-Xa Level ABG pH POC ABG pCO2 POC ABG pO2 ABG pO2 ABG HCO3 ABG O2 Saturation ABG Base Excess ABG Hemoglobin ABG Oxyhemoglobin VBG pH ABG Sodium ABG Potassium ABG Glucose Oxyhemoglobin Sodium Potassium Chloride Carbon Dioxide BUN 80 H Creatinine 2.1 H Glucose 260 H POC Glucose Lactic Acid 4.30 H* Calcium 8.3 L Ferritin AST Alkaline Phosphatase Magnesium Lactate Dehydrogenase Total Creatine Kinase CK-MB (CK-2) C-Reactive Protein Total Protein Albumin Troponin T HDL Cholesterol Arterial Blood Glucose Urine WBC (Auto) Urine Creatinine Urine Total Protein Phenytoin Coronavirus (PCR) Crossmatch 06/26/20 06/27/20 06/27/20 18:50 01:00 04:29 WBC RBC Hgb Hct MCHC RDW Lymph % (Auto) [place] % (Auto) Eos % (Auto) Lymph # [place] # Lymph # (Auto) [place] # (Auto) Eos # (Auto) Seg Neutrophils % Seg Neuts % (Manual) Lymphocytes % (Manual) Seg Neutrophils # Seg Neutrophils # Man Lymphocytes # (Manual) Monocytes % (Manual) Eosinophils % (Manual) Monocytes # (Manual) Eosinophils # (Manual) D-Dimer Heparin Anti-Xa Level ABG pH 7.296 L POC ABG pCO2 POC ABG pO2 ABG pO2 116.5 H 200.5 H ABG HCO3 28.4 H ABG O2 Saturation 99.3 H ABG Base Excess 3.7 H ABG Hemoglobin 5.6 L ABG Oxyhemoglobin VBG pH ABG Sodium ABG Potassium ABG Glucose Oxyhemoglobin Sodium Potassium Chloride Carbon Dioxide BUN Creatinine Glucose POC Glucose 123 H Lactic Acid Calcium Ferritin AST Alkaline Phosphatase Magnesium Lactate Dehydrogenase Total Creatine Kinase CK-MB (CK-2) C-Reactive Protein Total Protein Albumin Troponin T HDL Cholesterol Arterial Blood Glucose Urine WBC (Auto) Urine Creatinine Urine Total Protein Phenytoin Coronavirus (PCR) Crossmatch 06/27/20 06/27/20 06/27/20 05:00 05:00 05:00 WBC RBC 2.75 L Hgb 7.9 L Hct 24.3 L MCHC RDW 17.1 H Lymph % (Auto) 8.5 L [place] % (Auto) 12.6 H Eos % (Auto) Lymph # 0.7 L [place] # 1.0 H Lymph # (Auto) [place] # (Auto) Eos # (Auto) Seg Neutrophils % 77.5 H Seg Neuts % (Manual) Lymphocytes % (Manual) Seg Neutrophils # Seg Neutrophils # Man Lymphocytes # (Manual) Monocytes % (Manual) Eosinophils % (Manual) Monocytes # (Manual) Eosinophils # (Manual) D-Dimer Heparin Anti-Xa Level ABG pH POC ABG pCO2 POC ABG pO2 ABG pO2 ABG HCO3 ABG O2 Saturation ABG Base Excess ABG Hemoglobin ABG Oxyhemoglobin VBG pH ABG Sodium ABG Potassium ABG Glucose Oxyhemoglobin Sodium Potassium Chloride Carbon Dioxide BUN 80 H Creatinine 2.0 H Glucose 129 H POC Glucose Lactic Acid 0.60 L Calcium 7.9 L Ferritin AST Alkaline Phosphatase Magnesium Lactate Dehydrogenase Total Creatine Kinase CK-MB (CK-2) C-Reactive Protein Total Protein Albumin Troponin T HDL Cholesterol Arterial Blood Glucose Urine WBC (Auto) Urine Creatinine Urine Total Protein Phenytoin Coronavirus (PCR) Crossmatch 06/27/20 06/27/20 06/27/20 05:23 13:46 17:25 WBC RBC Hgb Hct MCHC RDW Lymph % (Auto) [place] % (Auto) Eos % (Auto) Lymph # [place] # Lymph # (Auto) [place] # (Auto) Eos # (Auto) Seg Neutrophils % Seg Neuts % (Manual) Lymphocytes % (Manual) Seg Neutrophils # Seg Neutrophils # Man Lymphocytes # (Manual) Monocytes % (Manual) Eosinophils % (Manual) Monocytes # (Manual) Eosinophils # (Manual) D-Dimer Heparin Anti-Xa Level ABG pH POC ABG pCO2 POC ABG pO2 ABG pO2 ABG HCO3 ABG O2 Saturation ABG Base Excess ABG Hemoglobin ABG Oxyhemoglobin VBG pH ABG Sodium ABG Potassium ABG Glucose Oxyhemoglobin Sodium Potassium Chloride Carbon Dioxide BUN Creatinine Glucose POC Glucose 109 H 158 H 162 H Lactic Acid Calcium Ferritin AST Alkaline Phosphatase Magnesium Lactate Dehydrogenase Total Creatine Kinase CK-MB (CK-2) C-Reactive Protein Total Protein Albumin Troponin T HDL Cholesterol Arterial Blood Glucose Urine WBC (Auto) Urine Creatinine Urine Total Protein Phenytoin Coronavirus (PCR) Crossmatch 06/27/20 06/27/20 06/28/20 18:43 23:46 04:05 WBC RBC Hgb 7.7 L Hct 22.1 L MCHC RDW Lymph % (Auto) [place] % (Auto) Eos % (Auto) Lymph # [place] # Lymph # (Auto) [place] # (Auto) Eos # (Auto) Seg Neutrophils % Seg Neuts % (Manual) Lymphocytes % (Manual) Seg Neutrophils # Seg Neutrophils # Man Lymphocytes # (Manual) Monocytes % (Manual) Eosinophils % (Manual) Monocytes # (Manual) Eosinophils # (Manual) D-Dimer Heparin Anti-Xa Level ABG pH POC ABG pCO2 POC ABG pO2 ABG pO2 102.7 H ABG HCO3 28.7 H ABG O2 Saturation ABG Base Excess 3.7 H ABG Hemoglobin ABG Oxyhemoglobin VBG pH ABG Sodium ABG Potassium ABG Glucose Oxyhemoglobin Sodium Potassium Chloride Carbon Dioxide BUN Creatinine Glucose POC Glucose 142 H Lactic Acid Calcium Ferritin AST Alkaline Phosphatase Magnesium Lactate Dehydrogenase Total Creatine Kinase CK-MB (CK-2) C-Reactive Protein Total Protein Albumin Troponin T HDL Cholesterol Arterial Blood Glucose Urine WBC (Auto) Urine Creatinine Urine Total Protein Phenytoin Coronavirus (PCR) Crossmatch 06/28/20 06/28/20 06/28/20 09:47 09:47 12:02 WBC RBC 2.53 L Hgb 7.4 L Hct 22.2 L MCHC RDW 16.8 H Lymph % (Auto) [place] % (Auto) 13.5 H Eos % (Auto) Lymph # 1.1 L [place] # 1.0 H Lymph # (Auto) [place] # (Auto) Eos # (Auto) Seg Neutrophils % Seg Neuts % (Manual) Lymphocytes % (Manual) Seg Neutrophils # Seg Neutrophils # Man Lymphocytes # (Manual) Monocytes % (Manual) Eosinophils % (Manual) Monocytes # (Manual) Eosinophils # (Manual) D-Dimer Heparin Anti-Xa Level ABG pH POC ABG pCO2 POC ABG pO2 ABG pO2 ABG HCO3 ABG O2 Saturation ABG Base Excess ABG Hemoglobin ABG Oxyhemoglobin VBG pH ABG Sodium ABG Potassium ABG Glucose Oxyhemoglobin Sodium Potassium Chloride Carbon Dioxide BUN 80 H Creatinine 1.5 H Glucose 139 H POC Glucose 169 H Lactic Acid Calcium 7.9 L Ferritin AST Alkaline Phosphatase Magnesium Lactate Dehydrogenase Total Creatine Kinase CK-MB (CK-2) C-Reactive Protein Total Protein 5.0 L Albumin 2.1 L Troponin T HDL Cholesterol Arterial Blood Glucose Urine WBC (Auto) Urine Creatinine Urine Total Protein Phenytoin Coronavirus (PCR) Crossmatch 06/28/20 06/28/20 06/28/20 12:30 12:30 17:24 WBC RBC 2.38 L Hgb 7.3 L Hct 20.9 L MCHC 35 H RDW 16.7 H Lymph % (Auto) [place] % (Auto) Eos % (Auto) Lymph # [place] # Lymph # (Auto) [place] # (Auto) Eos # (Auto) Seg Neutrophils % Seg Neuts % (Manual) Lymphocytes % (Manual) Seg Neutrophils # Seg Neutrophils # Man Lymphocytes # (Manual) Monocytes % (Manual) Eosinophils % (Manual) Monocytes # (Manual) Eosinophils # (Manual) D-Dimer Heparin Anti-Xa Level ABG pH POC ABG pCO2 POC ABG pO2 ABG pO2 ABG HCO3 ABG O2 Saturation ABG Base Excess ABG Hemoglobin ABG Oxyhemoglobin VBG pH ABG Sodium ABG Potassium ABG Glucose Oxyhemoglobin Sodium Potassium Chloride Carbon Dioxide BUN 74 H Creatinine 1.5 H Glucose 143 H POC Glucose 173 H Lactic Acid Calcium 7.5 L Ferritin AST Alkaline Phosphatase Magnesium Lactate Dehydrogenase Total Creatine Kinase CK-MB (CK-2) C-Reactive Protein Total Protein Albumin Troponin T HDL Cholesterol Arterial Blood Glucose Urine WBC (Auto) Urine Creatinine Urine Total Protein Phenytoin Coronavirus (PCR) Crossmatch 06/29/20 06/29/20 06/29/20 00:02 03:54 04:38 WBC RBC 2.55 L Hgb 7.3 L Hct 22.4 L MCHC RDW 16.4 H Lymph % (Auto) 13.3 L [place] % (Auto) 12.5 H Eos % (Auto) Lymph # 1.1 L [place] # 1.0 H Lymph # (Auto) [place] # (Auto) Eos # (Auto) Seg Neutrophils % Seg Neuts % (Manual) Lymphocytes % (Manual) Seg Neutrophils # Seg Neutrophils # Man Lymphocytes # (Manual) Monocytes % (Manual) Eosinophils % (Manual) Monocytes # (Manual) Eosinophils # (Manual) D-Dimer Heparin Anti-Xa Level ABG pH POC ABG pCO2 POC ABG pO2 ABG pO2 ABG HCO3 26.9 H ABG O2 Saturation ABG Base Excess ABG Hemoglobin 6.9 L ABG Oxyhemoglobin VBG pH ABG Sodium ABG Potassium ABG Glucose Oxyhemoglobin Sodium Potassium Chloride Carbon Dioxide BUN Creatinine Glucose POC Glucose 142 H Lactic Acid Calcium Ferritin AST Alkaline Phosphatase Magnesium Lactate Dehydrogenase Total Creatine Kinase CK-MB (CK-2) C-Reactive Protein Total Protein Albumin Troponin T HDL Cholesterol Arterial Blood Glucose Urine WBC (Auto) Urine Creatinine Urine Total Protein Phenytoin Coronavirus (PCR) Crossmatch 06/29/20 06/29/20 06/29/20 04:38 05:38 12:25 WBC RBC Hgb Hct MCHC RDW Lymph % (Auto) [place] % (Auto) Eos % (Auto) Lymph # [place] # Lymph # (Auto) [place] # (Auto) Eos # (Auto) Seg Neutrophils % Seg Neuts % (Manual) Lymphocytes % (Manual) Seg Neutrophils # Seg Neutrophils # Man Lymphocytes # (Manual) Monocytes % (Manual) Eosinophils % (Manual) Monocytes # (Manual) Eosinophils # (Manual) D-Dimer Heparin Anti-Xa Level ABG pH POC ABG pCO2 POC ABG pO2 ABG pO2 ABG HCO3 ABG O2 Saturation ABG Base Excess ABG Hemoglobin ABG Oxyhemoglobin VBG pH ABG Sodium ABG Potassium ABG Glucose Oxyhemoglobin Sodium Potassium Chloride 107.8 H Carbon Dioxide BUN 72 H Creatinine 1.4 H Glucose 127 H POC Glucose 122 H 138 H Lactic Acid Calcium 7.4 L Ferritin AST Alkaline Phosphatase Magnesium Lactate Dehydrogenase Total Creatine Kinase CK-MB (CK-2) C-Reactive Protein Total Protein Albumin Troponin T HDL Cholesterol Arterial Blood Glucose Urine WBC (Auto) Urine Creatinine Urine Total Protein Phenytoin Coronavirus (PCR) Crossmatch 06/29/20 06/29/20 06/29/20 14:45 14:45 14:45 WBC RBC Hgb Hct MCHC RDW Lymph % (Auto) [place] % (Auto) Eos % (Auto) Lymph # [place] # Lymph # (Auto) [place] # (Auto) Eos # (Auto) Seg Neutrophils % Seg Neuts % (Manual) Lymphocytes % (Manual) Seg Neutrophils # Seg Neutrophils # Man Lymphocytes # (Manual) Monocytes % (Manual) Eosinophils % (Manual) Monocytes # (Manual) Eosinophils # (Manual) D-Dimer 2310.15 H Heparin Anti-Xa Level ABG pH POC ABG pCO2 POC ABG pO2 ABG pO2 ABG HCO3 ABG O2 Saturation ABG Base Excess ABG Hemoglobin ABG Oxyhemoglobin VBG pH ABG Sodium ABG Potassium ABG Glucose Oxyhemoglobin Sodium Potassium Chloride Carbon Dioxide BUN Creatinine Glucose POC Glucose Lactic Acid Calcium Ferritin 223.6 H AST Alkaline Phosphatase Magnesium Lactate Dehydrogenase 367 H Total Creatine Kinase CK-MB (CK-2) C-Reactive Protein 3.60 H Total Protein Albumin Troponin T HDL Cholesterol Arterial Blood Glucose Urine WBC (Auto) Urine Creatinine Urine Total Protein Phenytoin Coronavirus (PCR) Crossmatch 06/29/20 06/29/20 06/29/20 18:27 23:35 Unknown WBC RBC Hgb Hct MCHC RDW Lymph % (Auto) [place] % (Auto) Eos % (Auto) Lymph # [place] # Lymph # (Auto) [place] # (Auto) Eos # (Auto) Seg Neutrophils % Seg Neuts % (Manual) Lymphocytes % (Manual) Seg Neutrophils # Seg Neutrophils # Man Lymphocytes # (Manual) Monocytes % (Manual) Eosinophils % (Manual) Monocytes # (Manual) Eosinophils # (Manual) D-Dimer Heparin Anti-Xa Level ABG pH POC ABG pCO2 POC ABG pO2 ABG pO2 ABG HCO3 ABG O2 Saturation ABG Base Excess ABG Hemoglobin ABG Oxyhemoglobin VBG pH ABG Sodium ABG Potassium ABG Glucose Oxyhemoglobin Sodium Potassium Chloride Carbon Dioxide BUN Creatinine Glucose POC Glucose 112 H 140 H Lactic Acid Calcium Ferritin AST Alkaline Phosphatase Magnesium Lactate Dehydrogenase Total Creatine Kinase CK-MB (CK-2) C-Reactive Protein Total Protein Albumin Troponin T HDL Cholesterol Arterial Blood Glucose Urine WBC (Auto) Urine Creatinine Urine Total Protein Phenytoin Coronavirus (PCR) Positive A Crossmatch 06/30/20 06/30/20 06/30/20 04:10 04:10 06:09 WBC RBC 2.44 L Hgb 7.1 L Hct 21.5 L MCHC RDW 16.6 H Lymph % (Auto) 11.0 L [place] % (Auto) 10.8 H Eos % (Auto) Lymph # 0.9 L [place] # 0.9 H Lymph # (Auto) [place] # (Auto) Eos # (Auto) Seg Neutrophils % 73.7 H Seg Neuts % (Manual) Lymphocytes % (Manual) Seg Neutrophils # Seg Neutrophils # Man Lymphocytes # (Manual) Monocytes % (Manual) Eosinophils % (Manual) Monocytes # (Manual) Eosinophils # (Manual) D-Dimer Heparin Anti-Xa Level ABG pH POC ABG pCO2 POC ABG pO2 ABG pO2 ABG HCO3 ABG O2 Saturation ABG Base Excess ABG Hemoglobin ABG Oxyhemoglobin VBG pH ABG Sodium ABG Potassium ABG Glucose Oxyhemoglobin Sodium Potassium Chloride 109.1 H Carbon Dioxide BUN 74 H Creatinine 1.3 H Glucose 191 H POC Glucose 187 H Lactic Acid Calcium 7.8 L Ferritin AST Alkaline Phosphatase Magnesium Lactate Dehydrogenase Total Creatine Kinase CK-MB (CK-2) C-Reactive Protein Total Protein Albumin Troponin T HDL Cholesterol Arterial Blood Glucose Urine WBC (Auto) Urine Creatinine Urine Total Protein Phenytoin Coronavirus (PCR) Crossmatch 06/30/20 06/30/20 06/30/20 12:04 17:43 23:41 WBC RBC Hgb Hct MCHC RDW Lymph % (Auto) [place] % (Auto) Eos % (Auto) Lymph # [place] # Lymph # (Auto) [place] # (Auto) Eos # (Auto) Seg Neutrophils % Seg Neuts % (Manual) Lymphocytes % (Manual) Seg Neutrophils # Seg Neutrophils # Man Lymphocytes # (Manual) Monocytes % (Manual) Eosinophils % (Manual) Monocytes # (Manual) Eosinophils # (Manual) D-Dimer Heparin Anti-Xa Level ABG pH POC ABG pCO2 POC ABG pO2 ABG pO2 ABG HCO3 ABG O2 Saturation ABG Base Excess ABG Hemoglobin ABG Oxyhemoglobin VBG pH ABG Sodium ABG Potassium ABG Glucose Oxyhemoglobin Sodium Potassium Chloride Carbon Dioxide BUN Creatinine Glucose POC Glucose 112 H 177 H 143 H Lactic Acid Calcium Ferritin AST Alkaline Phosphatase Magnesium Lactate Dehydrogenase Total Creatine Kinase CK-MB (CK-2) C-Reactive Protein Total Protein Albumin Troponin T HDL Cholesterol Arterial Blood Glucose Urine WBC (Auto) Urine Creatinine Urine Total Protein Phenytoin Coronavirus (PCR) Crossmatch 07/01/20 07/01/20 07/01/20 05:02 05:52 06:01 WBC 12.6 H RBC 2.95 L Hgb 8.2 L Hct 26.0 L MCHC RDW 16.9 H Lymph % (Auto) [place] % (Auto) Eos % (Auto) Lymph # [place] # Lymph # (Auto) [place] # (Auto) Eos # (Auto) Seg Neutrophils % Seg Neuts % (Manual) Lymphocytes % (Manual) Seg Neutrophils # Seg Neutrophils # Man 8.6 H Lymphocytes # (Manual) Monocytes % (Manual) Eosinophils % (Manual) 5.0 H Monocytes # (Manual) Eosinophils # (Manual) 0.6 H D-Dimer Heparin Anti-Xa Level ABG pH POC ABG pCO2 POC ABG pO2 ABG pO2 ABG HCO3 ABG O2 Saturation ABG Base Excess ABG Hemoglobin 8.2 L ABG Oxyhemoglobin VBG pH ABG Sodium ABG Potassium ABG Glucose Oxyhemoglobin Sodium Potassium Chloride Carbon Dioxide BUN Creatinine Glucose POC Glucose 129 H Lactic Acid Calcium Ferritin AST Alkaline Phosphatase Magnesium Lactate Dehydrogenase Total Creatine Kinase CK-MB (CK-2) C-Reactive Protein Total Protein Albumin Troponin T HDL Cholesterol Arterial Blood Glucose Urine WBC (Auto) Urine Creatinine Urine Total Protein Phenytoin Coronavirus (PCR) Crossmatch 07/01/20 07/01/20 07/01/20 06:01 06:01 06:08 WBC RBC Hgb Hct MCHC RDW Lymph % (Auto) [place] % (Auto) Eos % (Auto) Lymph # [place] # Lymph # (Auto) [place] # (Auto) Eos # (Auto) Seg Neutrophils % Seg Neuts % (Manual) Lymphocytes % (Manual) Seg Neutrophils # Seg Neutrophils # Man Lymphocytes # (Manual) Monocytes % (Manual) Eosinophils % (Manual) Monocytes # (Manual) Eosinophils # (Manual) D-Dimer Heparin Anti-Xa Level ABG pH POC ABG pCO2 POC ABG pO2 ABG pO2 ABG HCO3 ABG O2 Saturation ABG Base Excess ABG Hemoglobin ABG Oxyhemoglobin VBG pH ABG Sodium ABG Potassium ABG Glucose Oxyhemoglobin Sodium 147 H Potassium Chloride 108.0 H Carbon Dioxide BUN 71 H Creatinine 1.3 H Glucose 193 H POC Glucose 192 H Lactic Acid Calcium 8.1 L Ferritin AST Alkaline Phosphatase Magnesium Lactate Dehydrogenase Total Creatine Kinase 300 H CK-MB (CK-2) C-Reactive Protein Total Protein Albumin Troponin T 0.067 H HDL Cholesterol 61 H Arterial Blood Glucose Urine WBC (Auto) Urine Creatinine Urine Total Protein Phenytoin Coronavirus (PCR) Crossmatch 07/01/20 07/01/20 07/02/20 12:23 17:40 00:18 WBC RBC Hgb Hct MCHC RDW Lymph % (Auto) [place] % (Auto) Eos % (Auto) Lymph # [place] # Lymph # (Auto) [place] # (Auto) Eos # (Auto) Seg Neutrophils % Seg Neuts % (Manual) Lymphocytes % (Manual) Seg Neutrophils # Seg Neutrophils # Man Lymphocytes # (Manual) Monocytes % (Manual) Eosinophils % (Manual) Monocytes # (Manual) Eosinophils # (Manual) D-Dimer Heparin Anti-Xa Level ABG pH POC ABG pCO2 POC ABG pO2 ABG pO2 ABG HCO3 ABG O2 Saturation ABG Base Excess ABG Hemoglobin ABG Oxyhemoglobin VBG pH ABG Sodium ABG Potassium ABG Glucose Oxyhemoglobin Sodium Potassium Chloride Carbon Dioxide BUN Creatinine Glucose POC Glucose 111 H 135 H 145 H Lactic Acid Calcium Ferritin AST Alkaline Phosphatase Magnesium Lactate Dehydrogenase Total Creatine Kinase CK-MB (CK-2) C-Reactive Protein Total Protein Albumin Troponin T HDL Cholesterol Arterial Blood Glucose Urine WBC (Auto) Urine Creatinine Urine Total Protein Phenytoin Coronavirus (PCR) Crossmatch 07/02/20 07/02/20 07/02/20 04:11 04:23 05:54 WBC RBC Hgb Hct MCHC RDW Lymph % (Auto) [place] % (Auto) Eos % (Auto) Lymph # [place] # Lymph # (Auto) [place] # (Auto) Eos # (Auto) Seg Neutrophils % Seg Neuts % (Manual) Lymphocytes % (Manual) Seg Neutrophils # Seg Neutrophils # Man Lymphocytes # (Manual) Monocytes % (Manual) Eosinophils % (Manual) Monocytes # (Manual) Eosinophils # (Manual) D-Dimer Heparin Anti-Xa Level ABG pH POC ABG pCO2 POC ABG pO2 ABG pO2 ABG HCO3 ABG O2 Saturation ABG Base Excess ABG Hemoglobin 5.4 L ABG Oxyhemoglobin VBG pH ABG Sodium ABG Potassium ABG Glucose Oxyhemoglobin Sodium Potassium Chloride 108.6 H Carbon Dioxide BUN 72 H Creatinine Glucose 112 H POC Glucose 137 H Lactic Acid Calcium 7.8 L Ferritin AST Alkaline Phosphatase Magnesium Lactate Dehydrogenase Total Creatine Kinase CK-MB (CK-2) C-Reactive Protein Total Protein Albumin Troponin T HDL Cholesterol Arterial Blood Glucose Urine WBC (Auto) Urine Creatinine Urine Total Protein Phenytoin Coronavirus (PCR) Crossmatch 07/02/20 07/02/20 07/02/20 11:38 18:04 23:59 WBC RBC Hgb Hct MCHC RDW Lymph % (Auto) [place] % (Auto) Eos % (Auto) Lymph # [place] # Lymph # (Auto) [place] # (Auto) Eos # (Auto) Seg Neutrophils % Seg Neuts % (Manual) Lymphocytes % (Manual) Seg Neutrophils # Seg Neutrophils # Man Lymphocytes # (Manual) Monocytes % (Manual) Eosinophils % (Manual) Monocytes # (Manual) Eosinophils # (Manual) D-Dimer Heparin Anti-Xa Level ABG pH POC ABG pCO2 POC ABG pO2 ABG pO2 ABG HCO3 ABG O2 Saturation ABG Base Excess ABG Hemoglobin ABG Oxyhemoglobin VBG pH ABG Sodium ABG Potassium ABG Glucose Oxyhemoglobin Sodium Potassium Chloride Carbon Dioxide BUN Creatinine Glucose POC Glucose 128 H 135 H 156 H Lactic Acid Calcium Ferritin AST Alkaline Phosphatase Magnesium Lactate Dehydrogenase Total Creatine Kinase CK-MB (CK-2) C-Reactive Protein Total Protein Albumin Troponin T HDL Cholesterol Arterial Blood Glucose Urine WBC (Auto) Urine Creatinine Urine Total Protein Phenytoin Coronavirus (PCR) Crossmatch 07/03/20 07/03/20 07/03/20 03:49 06:00 11:31 WBC RBC Hgb Hct MCHC RDW Lymph % (Auto) [place] % (Auto) Eos % (Auto) Lymph # [place] # Lymph # (Auto) [place] # (Auto) Eos # (Auto) Seg Neutrophils % Seg Neuts % (Manual) Lymphocytes % (Manual) Seg Neutrophils # Seg Neutrophils # Man Lymphocytes # (Manual) Monocytes % (Manual) Eosinophils % (Manual) Monocytes # (Manual) Eosinophils # (Manual) D-Dimer Heparin Anti-Xa Level ABG pH POC ABG pCO2 POC ABG pO2 ABG pO2 121.0 H ABG HCO3 ABG O2 Saturation ABG Base Excess ABG Hemoglobin 8.5 L ABG Oxyhemoglobin VBG pH ABG Sodium ABG Potassium ABG Glucose Oxyhemoglobin Sodium Potassium Chloride Carbon Dioxide BUN Creatinine Glucose POC Glucose 135 H 141 H Lactic Acid Calcium Ferritin AST Alkaline Phosphatase Magnesium Lactate Dehydrogenase Total Creatine Kinase CK-MB (CK-2) C-Reactive Protein Total Protein Albumin Troponin T HDL Cholesterol Arterial Blood Glucose Urine WBC (Auto) Urine Creatinine Urine Total Protein Phenytoin Coronavirus (PCR) Crossmatch 07/03/20 07/03/20 07/03/20 16:00 16:07 17:40 WBC RBC Hgb Hct MCHC RDW Lymph % (Auto) [place] % (Auto) Eos % (Auto) Lymph # [place] # Lymph # (Auto) [place] # (Auto) Eos # (Auto) Seg Neutrophils % Seg Neuts % (Manual) Lymphocytes % (Manual) Seg Neutrophils # Seg Neutrophils # Man Lymphocytes # (Manual) Monocytes % (Manual) Eosinophils % (Manual) Monocytes # (Manual) Eosinophils # (Manual) D-Dimer Heparin Anti-Xa Level ABG pH 7.271 L POC ABG pCO2 POC ABG pO2 ABG pO2 126.9 H ABG HCO3 ABG O2 Saturation ABG Base Excess ABG Hemoglobin 8.2 L 8.1 L ABG Oxyhemoglobin VBG pH ABG Sodium 130.3 L ABG Potassium 4.9 H ABG Glucose 163 H Oxyhemoglobin Sodium Potassium Chloride Carbon Dioxide BUN Creatinine Glucose POC Glucose 120 H Lactic Acid Calcium Ferritin AST Alkaline Phosphatase Magnesium Lactate Dehydrogenase Total Creatine Kinase CK-MB (CK-2) C-Reactive Protein Total Protein Albumin Troponin T HDL Cholesterol Arterial Blood Glucose 163 H Urine WBC (Auto) Urine Creatinine Urine Total Protein Phenytoin Coronavirus (PCR) Crossmatch 07/04/20 07/04/20 07/04/20 05:49 11:54 18:00 WBC RBC Hgb Hct MCHC RDW Lymph % (Auto) [place] % (Auto) Eos % (Auto) Lymph # [place] # Lymph # (Auto) [place] # (Auto) Eos # (Auto) Seg Neutrophils % Seg Neuts % (Manual) Lymphocytes % (Manual) Seg Neutrophils # Seg Neutrophils # Man Lymphocytes # (Manual) Monocytes % (Manual) Eosinophils % (Manual) Monocytes # (Manual) Eosinophils # (Manual) D-Dimer Heparin Anti-Xa Level ABG pH POC ABG pCO2 POC ABG pO2 ABG pO2 ABG HCO3 ABG O2 Saturation ABG Base Excess ABG Hemoglobin ABG Oxyhemoglobin VBG pH ABG Sodium ABG Potassium ABG Glucose Oxyhemoglobin Sodium Potassium Chloride Carbon Dioxide BUN Creatinine Glucose POC Glucose 128 H 168 H 133 H Lactic Acid Calcium Ferritin AST Alkaline Phosphatase Magnesium Lactate Dehydrogenase Total Creatine Kinase CK-MB (CK-2) C-Reactive Protein Total Protein Albumin Troponin T HDL Cholesterol Arterial Blood Glucose Urine WBC (Auto) Urine Creatinine Urine Total Protein Phenytoin Coronavirus (PCR) Crossmatch 07/05/20 07/05/20 07/05/20 00:07 01:12 02:30 WBC RBC 2.35 L Hgb 6.9 L Hct 21.1 L MCHC RDW 16.8 H Lymph % (Auto) [place] % (Auto) Eos % (Auto) Lymph # [place] # Lymph # (Auto) [place] # (Auto) Eos # (Auto) Seg Neutrophils % Seg Neuts % (Manual) 74.0 H Lymphocytes % (Manual) 12.0 L Seg Neutrophils # Seg Neutrophils # Man 8.0 H Lymphocytes # (Manual) Monocytes % (Manual) 9.0 H Eosinophils % (Manual) Monocytes # (Manual) 1.0 H Eosinophils # (Manual) D-Dimer Heparin Anti-Xa Level ABG pH POC ABG pCO2 POC ABG pO2 ABG pO2 ABG HCO3 ABG O2 Saturation ABG Base Excess ABG Hemoglobin ABG Oxyhemoglobin VBG pH ABG Sodium ABG Potassium ABG Glucose Oxyhemoglobin Sodium Potassium Chloride Carbon Dioxide BUN Creatinine Glucose POC Glucose 121 H Lactic Acid Calcium Ferritin AST Alkaline Phosphatase Magnesium Lactate Dehydrogenase Total Creatine Kinase CK-MB (CK-2) C-Reactive Protein Total Protein Albumin Troponin T HDL Cholesterol Arterial Blood Glucose Urine WBC (Auto) Urine Creatinine Urine Total Protein Phenytoin Coronavirus (PCR) Crossmatch See Detail 07/05/20 07/05/20 07/05/20 12:09 13:05 18:04 WBC RBC Hgb Hct MCHC RDW Lymph % (Auto) [place] % (Auto) Eos % (Auto) Lymph # [place] # Lymph # (Auto) [place] # (Auto) Eos # (Auto) Seg Neutrophils % Seg Neuts % (Manual) Lymphocytes % (Manual) Seg Neutrophils # Seg Neutrophils # Man Lymphocytes # (Manual) Monocytes % (Manual) Eosinophils % (Manual) Monocytes # (Manual) Eosinophils # (Manual) D-Dimer Heparin Anti-Xa Level ABG pH 7.32 L POC ABG pCO2 POC ABG pO2 ABG pO2 78.3 L ABG HCO3 ABG O2 Saturation ABG Base Excess -2.6 L ABG Hemoglobin 7.3 L ABG Oxyhemoglobin VBG pH ABG Sodium ABG Potassium ABG Glucose Oxyhemoglobin Sodium Potassium Chloride Carbon Dioxide BUN Creatinine Glucose POC Glucose 132 H 160 H Lactic Acid Calcium Ferritin AST Alkaline Phosphatase Magnesium Lactate Dehydrogenase Total Creatine Kinase CK-MB (CK-2) C-Reactive Protein Total Protein Albumin Troponin T HDL Cholesterol Arterial Blood Glucose Urine WBC (Auto) Urine Creatinine Urine Total Protein Phenytoin Coronavirus (PCR) Crossmatch 07/05/20 07/05/20 07/05/20 23:13 23:13 23:43 WBC RBC 2.57 L Hgb 7.7 L Hct 23.0 L MCHC RDW 16.9 H Lymph % (Auto) [place] % (Auto) Eos % (Auto) Lymph # [place] # Lymph # (Auto) [place] # (Auto) Eos # (Auto) Seg Neutrophils % Seg Neuts % (Manual) Lymphocytes % (Manual) Seg Neutrophils # Seg Neutrophils # Man Lymphocytes # (Manual) Monocytes % (Manual) Eosinophils % (Manual) Monocytes # (Manual) Eosinophils # (Manual) D-Dimer Heparin Anti-Xa Level ABG pH POC ABG pCO2 POC ABG pO2 ABG pO2 ABG HCO3 ABG O2 Saturation ABG Base Excess ABG Hemoglobin ABG Oxyhemoglobin VBG pH ABG Sodium ABG Potassium ABG Glucose Oxyhemoglobin Sodium Potassium Chloride Carbon Dioxide 20 L BUN 80 H Creatinine 2.4 H D Glucose 124 H POC Glucose 121 H Lactic Acid Calcium 7.6 L Ferritin AST Alkaline Phosphatase Magnesium Lactate Dehydrogenase Total Creatine Kinase CK-MB (CK-2) C-Reactive Protein Total Protein Albumin Troponin T HDL Cholesterol Arterial Blood Glucose Urine WBC (Auto) Urine Creatinine Urine Total Protein Phenytoin Coronavirus (PCR) Crossmatch 0907/06/20 07/06/20 13:20 14:48 17:28 WBC RBC Hgb Hct MCHC RDW Lymph % (Auto) [place] % (Auto) Eos % (Auto) Lymph # [place] # Lymph # (Auto) [place] # (Auto) Eos # (Auto) Seg Neutrophils % Seg Neuts % (Manual) Lymphocytes % (Manual) Seg Neutrophils # Seg Neutrophils # Man Lymphocytes # (Manual) Monocytes % (Manual) Eosinophils % (Manual) Monocytes # (Manual) Eosinophils # (Manual) D-Dimer Heparin Anti-Xa Level ABG pH POC ABG pCO2 POC ABG pO2 ABG pO2 ABG HCO3 ABG O2 Saturation ABG Base Excess ABG Hemoglobin ABG Oxyhemoglobin VBG pH ABG Sodium ABG Potassium ABG Glucose Oxyhemoglobin Sodium 136 L Potassium 5.5 H Chloride Carbon Dioxide 19 L BUN 82 H Creatinine 2.5 H Glucose 113 H POC Glucose 133 H Lactic Acid Calcium 7.7 L Ferritin AST Alkaline Phosphatase Magnesium Lactate Dehydrogenase Total Creatine Kinase CK-MB (CK-2) C-Reactive Protein Total Protein Albumin Troponin T HDL Cholesterol Arterial Blood Glucose Urine WBC (Auto) Urine Creatinine 33.3 H Urine Total Protein Phenytoin Coronavirus (PCR) Crossmatch 07/07/20 07/07/20 07/07/20 00:12 04:15 04:15 WBC RBC 2.28 L Hgb 6.8 L Hct 20.7 L MCHC RDW 16.8 H Lymph % (Auto) [place] % (Auto) Eos % (Auto) Lymph # [place] # Lymph # (Auto) [place] # (Auto) Eos # (Auto) Seg Neutrophils % Seg Neuts % (Manual) Lymphocytes % (Manual) 13.0 L Seg Neutrophils # Seg Neutrophils # Man Lymphocytes # (Manual) 1.0 L Monocytes % (Manual) 11.0 H Eosinophils % (Manual) Monocytes # (Manual) 0.9 H Eosinophils # (Manual) D-Dimer Heparin Anti-Xa Level ABG pH POC ABG pCO2 POC ABG pO2 ABG pO2 ABG HCO3 ABG O2 Saturation ABG Base Excess ABG Hemoglobin ABG Oxyhemoglobin VBG pH ABG Sodium ABG Potassium ABG Glucose Oxyhemoglobin Sodium Potassium Chloride Carbon Dioxide BUN Creatinine Glucose POC Glucose 154 H Lactic Acid Calcium Ferritin AST Alkaline Phosphatase Magnesium 2.50 H Lactate Dehydrogenase Total Creatine Kinase CK-MB (CK-2) C-Reactive Protein Total Protein Albumin Troponin T HDL Cholesterol Arterial Blood Glucose Urine WBC (Auto) Urine Creatinine Urine Total Protein Phenytoin Coronavirus (PCR) Crossmatch 07/07/20 07/07/20 07/07/20 05:31 12:31 13:22 WBC RBC Hgb Hct MCHC RDW Lymph % (Auto) [place] % (Auto) Eos % (Auto) Lymph # [place] # Lymph # (Auto) [place] # (Auto) Eos # (Auto) Seg Neutrophils % Seg Neuts % (Manual) Lymphocytes % (Manual) Seg Neutrophils # Seg Neutrophils # Man Lymphocytes # (Manual) Monocytes % (Manual) Eosinophils % (Manual) Monocytes # (Manual) Eosinophils # (Manual) D-Dimer Heparin Anti-Xa Level ABG pH POC ABG pCO2 POC ABG pO2 ABG pO2 ABG HCO3 ABG O2 Saturation ABG Base Excess ABG Hemoglobin ABG Oxyhemoglobin VBG pH ABG Sodium ABG Potassium ABG Glucose Oxyhemoglobin Sodium Potassium 5.6 H Chloride Carbon Dioxide BUN 86 H Creatinine 2.9 H Glucose 127 H POC Glucose 135 H 131 H Lactic Acid Calcium 8.1 L Ferritin AST Alkaline Phosphatase Magnesium Lactate Dehydrogenase Total Creatine Kinase CK-MB (CK-2) C-Reactive Protein Total Protein Albumin Troponin T HDL Cholesterol Arterial Blood Glucose Urine WBC (Auto) Urine Creatinine Urine Total Protein Phenytoin Coronavirus (PCR) Crossmatch 07/07/20 07/07/20 07/08/20 17:55 23:33 04:14 WBC RBC 3.28 L Hgb 9.7 L Hct 28.9 L D MCHC RDW 16.4 H Lymph % (Auto) 10.3 L [place] % (Auto) 10.0 H Eos % (Auto) Lymph # [place] # Lymph # (Auto) 1.1 L [place] # (Auto) 1.1 H Eos # (Auto) Seg Neutrophils % 77.2 H Seg Neuts % (Manual) Lymphocytes % (Manual) Seg Neutrophils # 8.2 H Seg Neutrophils # Man Lymphocytes # (Manual) Monocytes % (Manual) Eosinophils % (Manual) Monocytes # (Manual) Eosinophils # (Manual) D-Dimer Heparin Anti-Xa Level ABG pH POC ABG pCO2 POC ABG pO2 ABG pO2 ABG HCO3 ABG O2 Saturation ABG Base Excess ABG Hemoglobin ABG Oxyhemoglobin VBG pH ABG Sodium ABG Potassium ABG Glucose Oxyhemoglobin Sodium Potassium Chloride Carbon Dioxide BUN Creatinine Glucose POC Glucose 136 H 159 H Lactic Acid Calcium Ferritin AST Alkaline Phosphatase Magnesium Lactate Dehydrogenase Total Creatine Kinase CK-MB (CK-2) C-Reactive Protein Total Protein Albumin Troponin T HDL Cholesterol Arterial Blood Glucose Urine WBC (Auto) Urine Creatinine Urine Total Protein Phenytoin Coronavirus (PCR) Crossmatch 07/08/20 07/08/20 07/08/20 04:14 12:10 18:10 WBC RBC Hgb Hct MCHC RDW Lymph % (Auto) [place] % (Auto) Eos % (Auto) Lymph # [place] # Lymph # (Auto) [place] # (Auto) Eos # (Auto) Seg Neutrophils % Seg Neuts % (Manual) Lymphocytes % (Manual) Seg Neutrophils # Seg Neutrophils # Man Lymphocytes # (Manual) Monocytes % (Manual) Eosinophils % (Manual) Monocytes # (Manual) Eosinophils # (Manual) D-Dimer Heparin Anti-Xa Level ABG pH POC ABG pCO2 POC ABG pO2 ABG pO2 ABG HCO3 ABG O2 Saturation ABG Base Excess ABG Hemoglobin ABG Oxyhemoglobin VBG pH ABG Sodium ABG Potassium ABG Glucose Oxyhemoglobin Sodium 136 L Potassium Chloride Carbon Dioxide BUN 84 H Creatinine 2.8 H Glucose 109 H POC Glucose 108 H 125 H Lactic Acid Calcium 8.1 L Ferritin AST Alkaline Phosphatase Magnesium 2.50 H Lactate Dehydrogenase Total Creatine Kinase CK-MB (CK-2) C-Reactive Protein Total Protein Albumin Troponin T HDL Cholesterol Arterial Blood Glucose Urine WBC (Auto) Urine Creatinine Urine Total Protein Phenytoin Coronavirus (PCR) Crossmatch 07/08/20 07/09/20 07/09/20 23:50 05:39 11:57 WBC RBC Hgb Hct MCHC RDW Lymph % (Auto) [place] % (Auto) Eos % (Auto) Lymph # [place] # Lymph # (Auto) [place] # (Auto) Eos # (Auto) Seg Neutrophils % Seg Neuts % (Manual) Lymphocytes % (Manual) Seg Neutrophils # Seg Neutrophils # Man Lymphocytes # (Manual) Monocytes % (Manual) Eosinophils % (Manual) Monocytes # (Manual) Eosinophils # (Manual) D-Dimer Heparin Anti-Xa Level ABG pH POC ABG pCO2 POC ABG pO2 ABG pO2 ABG HCO3 ABG O2 Saturation ABG Base Excess ABG Hemoglobin ABG Oxyhemoglobin VBG pH ABG Sodium ABG Potassium ABG Glucose Oxyhemoglobin Sodium Potassium Chloride Carbon Dioxide BUN Creatinine Glucose POC Glucose 141 H 121 H 123 H Lactic Acid Calcium Ferritin AST Alkaline Phosphatase Magnesium Lactate Dehydrogenase Total Creatine Kinase CK-MB (CK-2) C-Reactive Protein Total Protein Albumin Troponin T HDL Cholesterol Arterial Blood Glucose Urine WBC (Auto) Urine Creatinine Urine Total Protein Phenytoin Coronavirus (PCR) Crossmatch 07/09/20 07/10/20 07/10/20 17:56 00:29 05:50 WBC RBC Hgb Hct MCHC RDW Lymph % (Auto) [place] % (Auto) Eos % (Auto) Lymph # [place] # Lymph # (Auto) [place] # (Auto) Eos # (Auto) Seg Neutrophils % Seg Neuts % (Manual) Lymphocytes % (Manual) Seg Neutrophils # Seg Neutrophils # Man Lymphocytes # (Manual) Monocytes % (Manual) Eosinophils % (Manual) Monocytes # (Manual) Eosinophils # (Manual) D-Dimer Heparin Anti-Xa Level ABG pH POC ABG pCO2 POC ABG pO2 ABG pO2 ABG HCO3 ABG O2 Saturation ABG Base Excess ABG Hemoglobin ABG Oxyhemoglobin VBG pH ABG Sodium ABG Potassium ABG Glucose Oxyhemoglobin Sodium Potassium Chloride Carbon Dioxide BUN Creatinine Glucose POC Glucose 119 H 122 H 124 H Lactic Acid Calcium Ferritin AST Alkaline Phosphatase Magnesium Lactate Dehydrogenase Total Creatine Kinase CK-MB (CK-2) C-Reactive Protein Total Protein Albumin Troponin T HDL Cholesterol Arterial Blood Glucose Urine WBC (Auto) Urine Creatinine Urine Total Protein Phenytoin Coronavirus (PCR) Crossmatch 07/10/20 07/10/20 07/10/20 10:41 10:41 12:25 WBC RBC 3.11 L Hgb 9.2 L Hct 27.6 L MCHC RDW 16.6 H Lymph % (Auto) [place] % (Auto) Eos % (Auto) Lymph # [place] # Lymph # (Auto) [place] # (Auto) Eos # (Auto) Seg Neutrophils % Seg Neuts % (Manual) 78.0 H Lymphocytes % (Manual) 11.0 L Seg Neutrophils # Seg Neutrophils # Man Lymphocytes # (Manual) 1.0 L Monocytes % (Manual) Eosinophils % (Manual) Monocytes # (Manual) Eosinophils # (Manual) D-Dimer Heparin Anti-Xa Level ABG pH POC ABG pCO2 POC ABG pO2 ABG pO2 ABG HCO3 ABG O2 Saturation ABG Base Excess ABG Hemoglobin ABG Oxyhemoglobin VBG pH ABG Sodium ABG Potassium ABG Glucose Oxyhemoglobin Sodium Potassium Chloride Carbon Dioxide BUN 85 H Creatinine 2.5 H Glucose 133 H POC Glucose 131 H Lactic Acid Calcium Ferritin AST Alkaline Phosphatase 131 H Magnesium Lactate Dehydrogenase Total Creatine Kinase CK-MB (CK-2) C-Reactive Protein Total Protein 5.2 L Albumin 1.6 L Troponin T HDL Cholesterol Arterial Blood Glucose Urine WBC (Auto) Urine Creatinine Urine Total Protein Phenytoin Coronavirus (PCR) Crossmatch 07/10/20 07/11/20 07/11/20 18:10 00:28 05:57 WBC RBC Hgb Hct MCHC RDW Lymph % (Auto) [place] % (Auto) Eos % (Auto) Lymph # [place] # Lymph # (Auto) [place] # (Auto) Eos # (Auto) Seg Neutrophils % Seg Neuts % (Manual) Lymphocytes % (Manual) Seg Neutrophils # Seg Neutrophils # Man Lymphocytes # (Manual) Monocytes % (Manual) Eosinophils % (Manual) Monocytes # (Manual) Eosinophils # (Manual) D-Dimer Heparin Anti-Xa Level ABG pH POC ABG pCO2 POC ABG pO2 ABG pO2 ABG HCO3 ABG O2 Saturation ABG Base Excess ABG Hemoglobin ABG Oxyhemoglobin VBG pH ABG Sodium ABG Potassium ABG Glucose Oxyhemoglobin Sodium Potassium Chloride Carbon Dioxide BUN Creatinine Glucose POC Glucose 134 H 140 H 148 H Lactic Acid Calcium Ferritin AST Alkaline Phosphatase Magnesium Lactate Dehydrogenase Total Creatine Kinase CK-MB (CK-2) C-Reactive Protein Total Protein Albumin Troponin T HDL Cholesterol Arterial Blood Glucose Urine WBC (Auto) Urine Creatinine Urine Total Protein Phenytoin Coronavirus (PCR) Crossmatch 07/11/20 07/11/20 07/11/20 12:14 17:28 23:49 WBC RBC Hgb Hct MCHC RDW Lymph % (Auto) [place] % (Auto) Eos % (Auto) Lymph # [place] # Lymph # (Auto) [place] # (Auto) Eos # (Auto) Seg Neutrophils % Seg Neuts % (Manual) Lymphocytes % (Manual) Seg Neutrophils # Seg Neutrophils # Man Lymphocytes # (Manual) Monocytes % (Manual) Eosinophils % (Manual) Monocytes # (Manual) Eosinophils # (Manual) D-Dimer Heparin Anti-Xa Level ABG pH POC ABG pCO2 POC ABG pO2 ABG pO2 ABG HCO3 ABG O2 Saturation ABG Base Excess ABG Hemoglobin ABG Oxyhemoglobin VBG pH ABG Sodium ABG Potassium ABG Glucose Oxyhemoglobin Sodium Potassium Chloride Carbon Dioxide BUN Creatinine Glucose POC Glucose 147 H 175 H 114 H Lactic Acid Calcium Ferritin AST Alkaline Phosphatase Magnesium Lactate Dehydrogenase Total Creatine Kinase CK-MB (CK-2) C-Reactive Protein Total Protein Albumin Troponin T HDL Cholesterol Arterial Blood Glucose Urine WBC (Auto) Urine Creatinine Urine Total Protein Phenytoin Coronavirus (PCR) Crossmatch 07/12/20 07/12/20 07/12/20 05:14 05:14 05:44 WBC RBC 2.78 L Hgb 8.5 L Hct 25.3 L MCHC RDW 16.7 H Lymph % (Auto) [place] % (Auto) Eos % (Auto) Lymph # [place] # Lymph # (Auto) [place] # (Auto) Eos # (Auto) Seg Neutrophils % Seg Neuts % (Manual) 81.0 H Lymphocytes % (Manual) 6.0 L Seg Neutrophils # Seg Neutrophils # Man Lymphocytes # (Manual) 0.6 L Monocytes % (Manual) 8.0 H Eosinophils % (Manual) Monocytes # (Manual) Eosinophils # (Manual) D-Dimer Heparin Anti-Xa Level ABG pH POC ABG pCO2 POC ABG pO2 ABG pO2 ABG HCO3 ABG O2 Saturation ABG Base Excess ABG Hemoglobin ABG Oxyhemoglobin VBG pH ABG Sodium ABG Potassium ABG Glucose Oxyhemoglobin Sodium Potassium Chloride Carbon Dioxide BUN 79 H Creatinine 2.2 H Glucose 131 H POC Glucose 116 H Lactic Acid Calcium Ferritin AST Alkaline Phosphatase Magnesium Lactate Dehydrogenase Total Creatine Kinase CK-MB (CK-2) C-Reactive Protein Total Protein Albumin Troponin T HDL Cholesterol Arterial Blood Glucose Urine WBC (Auto) Urine Creatinine Urine Total Protein Phenytoin Coronavirus (PCR) Crossmatch 07/12/20 07/12/20 07/13/20 11:32 17:53 00:18 WBC RBC Hgb Hct MCHC RDW Lymph % (Auto) [place] % (Auto) Eos % (Auto) Lymph # [place] # Lymph # (Auto) [place] # (Auto) Eos # (Auto) Seg Neutrophils % Seg Neuts % (Manual) Lymphocytes % (Manual) Seg Neutrophils # Seg Neutrophils # Man Lymphocytes # (Manual) Monocytes % (Manual) Eosinophils % (Manual) Monocytes # (Manual) Eosinophils # (Manual) D-Dimer Heparin Anti-Xa Level ABG pH POC ABG pCO2 POC ABG pO2 ABG pO2 ABG HCO3 ABG O2 Saturation ABG Base Excess ABG Hemoglobin ABG Oxyhemoglobin VBG pH ABG Sodium ABG Potassium ABG Glucose Oxyhemoglobin Sodium Potassium Chloride Carbon Dioxide BUN Creatinine Glucose POC Glucose 132 H 155 H 162 H Lactic Acid Calcium Ferritin AST Alkaline Phosphatase Magnesium Lactate Dehydrogenase Total Creatine Kinase CK-MB (CK-2) C-Reactive Protein Total Protein Albumin Troponin T HDL Cholesterol Arterial Blood Glucose Urine WBC (Auto) Urine Creatinine Urine Total Protein Phenytoin Coronavirus (PCR) Crossmatch 07/13/20 07/13/20 07/13/20 04:53 04:53 06:14 WBC RBC 2.86 L Hgb 8.4 L Hct 25.7 L MCHC RDW 16.8 H Lymph % (Auto) [place] % (Auto) Eos % (Auto) Lymph # [place] # Lymph # (Auto) [place] # (Auto) Eos # (Auto) Seg Neutrophils % Seg Neuts % (Manual) 84.0 H Lymphocytes % (Manual) 7.0 L Seg Neutrophils # Seg Neutrophils # Man Lymphocytes # (Manual) 0.6 L Monocytes % (Manual) Eosinophils % (Manual) Monocytes # (Manual) Eosinophils # (Manual) D-Dimer Heparin Anti-Xa Level ABG pH POC ABG pCO2 POC ABG pO2 ABG pO2 ABG HCO3 ABG O2 Saturation ABG Base Excess ABG Hemoglobin ABG Oxyhemoglobin VBG pH ABG Sodium ABG Potassium ABG Glucose Oxyhemoglobin Sodium 136 L Potassium Chloride Carbon Dioxide BUN 78 H Creatinine 2.0 H Glucose 130 H POC Glucose 141 H Lactic Acid Calcium Ferritin AST Alkaline Phosphatase Magnesium Lactate Dehydrogenase Total Creatine Kinase CK-MB (CK-2) C-Reactive Protein Total Protein Albumin Troponin T HDL Cholesterol Arterial Blood Glucose Urine WBC (Auto) Urine Creatinine Urine Total Protein Phenytoin Coronavirus (PCR) Crossmatch 07/13/20 07/13/20 07/14/20 12:50 18:27 00:22 WBC RBC Hgb Hct MCHC RDW Lymph % (Auto) [place] % (Auto) Eos % (Auto) Lymph # [place] # Lymph # (Auto) [place] # (Auto) Eos # (Auto) Seg Neutrophils % Seg Neuts % (Manual) Lymphocytes % (Manual) Seg Neutrophils # Seg Neutrophils # Man Lymphocytes # (Manual) Monocytes % (Manual) Eosinophils % (Manual) Monocytes # (Manual) Eosinophils # (Manual) D-Dimer Heparin Anti-Xa Level ABG pH POC ABG pCO2 POC ABG pO2 ABG pO2 ABG HCO3 ABG O2 Saturation ABG Base Excess ABG Hemoglobin ABG Oxyhemoglobin VBG pH ABG Sodium ABG Potassium ABG Glucose Oxyhemoglobin Sodium Potassium Chloride Carbon Dioxide BUN Creatinine Glucose POC Glucose 146 H 149 H 157 H Lactic Acid Calcium Ferritin AST Alkaline Phosphatase Magnesium Lactate Dehydrogenase Total Creatine Kinase CK-MB (CK-2) C-Reactive Protein Total Protein Albumin Troponin T HDL Cholesterol Arterial Blood Glucose Urine WBC (Auto) Urine Creatinine Urine Total Protein Phenytoin Coronavirus (PCR) Crossmatch 07/14/20 07/14/20 07/14/20 05:43 08:04 12:12 WBC RBC Hgb Hct MCHC RDW Lymph % (Auto) [place] % (Auto) Eos % (Auto) Lymph # [place] # Lymph # (Auto) [place] # (Auto) Eos # (Auto) Seg Neutrophils % Seg Neuts % (Manual) Lymphocytes % (Manual) Seg Neutrophils # Seg Neutrophils # Man Lymphocytes # (Manual) Monocytes % (Manual) Eosinophils % (Manual) Monocytes # (Manual) Eosinophils # (Manual) D-Dimer Heparin Anti-Xa Level ABG pH POC ABG pCO2 POC ABG pO2 ABG pO2 ABG HCO3 ABG O2 Saturation ABG Base Excess ABG Hemoglobin ABG Oxyhemoglobin VBG pH ABG Sodium ABG Potassium ABG Glucose Oxyhemoglobin Sodium Potassium Chloride Carbon Dioxide BUN Creatinine Glucose POC Glucose 169 H 185 H Lactic Acid Calcium Ferritin AST Alkaline Phosphatase Magnesium Lactate Dehydrogenase Total Creatine Kinase CK-MB (CK-2) C-Reactive Protein Total Protein Albumin Troponin T HDL Cholesterol Arterial Blood Glucose Urine WBC (Auto) Urine Creatinine Urine Total Protein Phenytoin Coronavirus (PCR) Positive A Crossmatch 07/14/20 07/15/20 07/15/20 17:23 00:04 06:06 WBC RBC Hgb Hct MCHC RDW Lymph % (Auto) [place] % (Auto) Eos % (Auto) Lymph # [place] # Lymph # (Auto) [place] # (Auto) Eos # (Auto) Seg Neutrophils % Seg Neuts % (Manual) Lymphocytes % (Manual) Seg Neutrophils # Seg Neutrophils # Man Lymphocytes # (Manual) Monocytes % (Manual) Eosinophils % (Manual) Monocytes # (Manual) Eosinophils # (Manual) D-Dimer Heparin Anti-Xa Level ABG pH POC ABG pCO2 POC ABG pO2 ABG pO2 ABG HCO3 ABG O2 Saturation ABG Base Excess ABG Hemoglobin ABG Oxyhemoglobin VBG pH ABG Sodium ABG Potassium ABG Glucose Oxyhemoglobin Sodium Potassium Chloride Carbon Dioxide BUN Creatinine Glucose POC Glucose 138 H 121 H 140 H Lactic Acid Calcium Ferritin AST Alkaline Phosphatase Magnesium Lactate Dehydrogenase Total Creatine Kinase CK-MB (CK-2) C-Reactive Protein Total Protein Albumin Troponin T HDL Cholesterol Arterial Blood Glucose Urine WBC (Auto) Urine Creatinine Urine Total Protein Phenytoin Coronavirus (PCR) Crossmatch 07/15/20 07/15/20 07/15/20 12:00 17:53 23:53 WBC RBC Hgb Hct MCHC RDW Lymph % (Auto) [place] % (Auto) Eos % (Auto) Lymph # [place] # Lymph # (Auto) [place] # (Auto) Eos # (Auto) Seg Neutrophils % Seg Neuts % (Manual) Lymphocytes % (Manual) Seg Neutrophils # Seg Neutrophils # Man Lymphocytes # (Manual) Monocytes % (Manual) Eosinophils % (Manual) Monocytes # (Manual) Eosinophils # (Manual) D-Dimer Heparin Anti-Xa Level ABG pH POC ABG pCO2 POC ABG pO2 ABG pO2 ABG HCO3 ABG O2 Saturation ABG Base Excess ABG Hemoglobin ABG Oxyhemoglobin VBG pH ABG Sodium ABG Potassium ABG Glucose Oxyhemoglobin Sodium Potassium Chloride Carbon Dioxide BUN Creatinine Glucose POC Glucose 137 H 161 H 156 H Lactic Acid Calcium Ferritin AST Alkaline Phosphatase Magnesium Lactate Dehydrogenase Total Creatine Kinase CK-MB (CK-2) C-Reactive Protein Total Protein Albumin Troponin T HDL Cholesterol Arterial Blood Glucose Urine WBC (Auto) Urine Creatinine Urine Total Protein Phenytoin Coronavirus (PCR) Crossmatch 07/16/20 07/16/20 07/17/20 05:26 17:44 00:07 WBC RBC Hgb Hct MCHC RDW Lymph % (Auto) [place] % (Auto) Eos % (Auto) Lymph # [place] # Lymph # (Auto) [place] # (Auto) Eos # (Auto) Seg Neutrophils % Seg Neuts % (Manual) Lymphocytes % (Manual) Seg Neutrophils # Seg Neutrophils # Man Lymphocytes # (Manual) Monocytes % (Manual) Eosinophils % (Manual) Monocytes # (Manual) Eosinophils # (Manual) D-Dimer Heparin Anti-Xa Level ABG pH POC ABG pCO2 POC ABG pO2 ABG pO2 ABG HCO3 ABG O2 Saturation ABG Base Excess ABG Hemoglobin ABG Oxyhemoglobin VBG pH ABG Sodium ABG Potassium ABG Glucose Oxyhemoglobin Sodium Potassium Chloride Carbon Dioxide BUN Creatinine Glucose POC Glucose 152 H 126 H 189 H Lactic Acid Calcium Ferritin AST Alkaline Phosphatase Magnesium Lactate Dehydrogenase Total Creatine Kinase CK-MB (CK-2) C-Reactive Protein Total Protein Albumin Troponin T HDL Cholesterol Arterial Blood Glucose Urine WBC (Auto) Urine Creatinine Urine Total Protein Phenytoin Coronavirus (PCR) Crossmatch 07/17/20 07/17/20 07/17/20 12:06 18:20 23:25 WBC RBC Hgb Hct MCHC RDW Lymph % (Auto) [place] % (Auto) Eos % (Auto) Lymph # [place] # Lymph # (Auto) [place] # (Auto) Eos # (Auto) Seg Neutrophils % Seg Neuts % (Manual) Lymphocytes % (Manual) Seg Neutrophils # Seg Neutrophils # Man Lymphocytes # (Manual) Monocytes % (Manual) Eosinophils % (Manual) Monocytes # (Manual) Eosinophils # (Manual) D-Dimer Heparin Anti-Xa Level ABG pH POC ABG pCO2 POC ABG pO2 ABG pO2 ABG HCO3 ABG O2 Saturation ABG Base Excess ABG Hemoglobin ABG Oxyhemoglobin VBG pH ABG Sodium ABG Potassium ABG Glucose Oxyhemoglobin Sodium Potassium Chloride Carbon Dioxide BUN Creatinine Glucose POC Glucose 155 H 206 H 161 H Lactic Acid Calcium Ferritin AST Alkaline Phosphatase Magnesium Lactate Dehydrogenase Total Creatine Kinase CK-MB (CK-2) C-Reactive Protein Total Protein Albumin Troponin T HDL Cholesterol Arterial Blood Glucose Urine WBC (Auto) Urine Creatinine Urine Total Protein Phenytoin Coronavirus (PCR) Crossmatch 07/18/20 07/18/20 07/18/20 04:24 05:16 11:53 WBC RBC Hgb Hct MCHC RDW Lymph % (Auto) [place] % (Auto) Eos % (Auto) Lymph # [place] # Lymph # (Auto) [place] # (Auto) Eos # (Auto) Seg Neutrophils % Seg Neuts % (Manual) Lymphocytes % (Manual) Seg Neutrophils # Seg Neutrophils # Man Lymphocytes # (Manual) Monocytes % (Manual) Eosinophils % (Manual) Monocytes # (Manual) Eosinophils # (Manual) D-Dimer Heparin Anti-Xa Level ABG pH POC ABG pCO2 POC ABG pO2 ABG pO2 ABG HCO3 ABG O2 Saturation ABG Base Excess ABG Hemoglobin 8.8 L ABG Oxyhemoglobin VBG pH ABG Sodium 131.6 L ABG Potassium 4.9 H ABG Glucose 131 H Oxyhemoglobin Sodium Potassium Chloride Carbon Dioxide BUN Creatinine Glucose POC Glucose 140 H 176 H Lactic Acid Calcium Ferritin AST Alkaline Phosphatase Magnesium Lactate Dehydrogenase Total Creatine Kinase CK-MB (CK-2) C-Reactive Protein Total Protein Albumin Troponin T HDL Cholesterol Arterial Blood Glucose 131 H Urine WBC (Auto) Urine Creatinine Urine Total Protein Phenytoin Coronavirus (PCR) Crossmatch 07/18/20 07/18/20 07/19/20 18:11 23:51 01:05 WBC RBC 2.76 L Hgb 7.9 L Hct 24.5 L MCHC RDW 17.6 H Lymph % (Auto) 11.6 L [place] % (Auto) 13.1 H Eos % (Auto) Lymph # [place] # Lymph # (Auto) 1.0 L [place] # (Auto) 1.1 H Eos # (Auto) Seg Neutrophils % 70.9 H Seg Neuts % (Manual) Lymphocytes % (Manual) Seg Neutrophils # Seg Neutrophils # Man Lymphocytes # (Manual) Monocytes % (Manual) Eosinophils % (Manual) Monocytes # (Manual) Eosinophils # (Manual) D-Dimer Heparin Anti-Xa Level ABG pH POC ABG pCO2 POC ABG pO2 ABG pO2 ABG HCO3 ABG O2 Saturation ABG Base Excess ABG Hemoglobin ABG Oxyhemoglobin VBG pH ABG Sodium ABG Potassium ABG Glucose Oxyhemoglobin Sodium Potassium Chloride Carbon Dioxide BUN Creatinine Glucose POC Glucose 143 H 159 H Lactic Acid Calcium Ferritin AST Alkaline Phosphatase Magnesium Lactate Dehydrogenase Total Creatine Kinase CK-MB (CK-2) C-Reactive Protein Total Protein Albumin Troponin T HDL Cholesterol Arterial Blood Glucose Urine WBC (Auto) Urine Creatinine Urine Total Protein Phenytoin Coronavirus (PCR) Crossmatch 07/19/20 07/19/20 07/19/20 01:05 05:54 12:46 WBC RBC Hgb Hct MCHC RDW Lymph % (Auto) [place] % (Auto) Eos % (Auto) Lymph # [place] # Lymph # (Auto) [place] # (Auto) Eos # (Auto) Seg Neutrophils % Seg Neuts % (Manual) Lymphocytes % (Manual) Seg Neutrophils # Seg Neutrophils # Man Lymphocytes # (Manual) Monocytes % (Manual) Eosinophils % (Manual) Monocytes # (Manual) Eosinophils # (Manual) D-Dimer Heparin Anti-Xa Level ABG pH POC ABG pCO2 POC ABG pO2 ABG pO2 ABG HCO3 ABG O2 Saturation ABG Base Excess ABG Hemoglobin ABG Oxyhemoglobin VBG pH ABG Sodium ABG Potassium ABG Glucose Oxyhemoglobin Sodium Potassium Chloride Carbon Dioxide BUN 86 H Creatinine 1.7 H Glucose 149 H POC Glucose 176 H 127 H Lactic Acid Calcium Ferritin AST Alkaline Phosphatase Magnesium Lactate Dehydrogenase Total Creatine Kinase CK-MB (CK-2) C-Reactive Protein Total Protein Albumin Troponin T HDL Cholesterol Arterial Blood Glucose Urine WBC (Auto) Urine Creatinine Urine Total Protein Phenytoin Coronavirus (PCR) Crossmatch 07/19/20 07/20/20 07/20/20 17:48 00:34 05:28 WBC RBC Hgb Hct MCHC RDW Lymph % (Auto) [place] % (Auto) Eos % (Auto) Lymph # [place] # Lymph # (Auto) [place] # (Auto) Eos # (Auto) Seg Neutrophils % Seg Neuts % (Manual) Lymphocytes % (Manual) Seg Neutrophils # Seg Neutrophils # Man Lymphocytes # (Manual) Monocytes % (Manual) Eosinophils % (Manual) Monocytes # (Manual) Eosinophils # (Manual) D-Dimer Heparin Anti-Xa Level ABG pH POC ABG pCO2 POC ABG pO2 ABG pO2 ABG HCO3 ABG O2 Saturation ABG Base Excess ABG Hemoglobin ABG Oxyhemoglobin VBG pH ABG Sodium ABG Potassium ABG Glucose Oxyhemoglobin Sodium Potassium Chloride Carbon Dioxide BUN Creatinine Glucose POC Glucose 123 H 147 H 110 H Lactic Acid Calcium Ferritin AST Alkaline Phosphatase Magnesium Lactate Dehydrogenase Total Creatine Kinase CK-MB (CK-2) C-Reactive Protein Total Protein Albumin Troponin T HDL Cholesterol Arterial Blood Glucose Urine WBC (Auto) Urine Creatinine Urine Total Protein Phenytoin Coronavirus (PCR) Crossmatch 07/20/20 07/20/20 07/21/20 12:10 17:00 00:11 WBC RBC Hgb Hct MCHC RDW Lymph % (Auto) [place] % (Auto) Eos % (Auto) Lymph # [place] # Lymph # (Auto) [place] # (Auto) Eos # (Auto) Seg Neutrophils % Seg Neuts % (Manual) Lymphocytes % (Manual) Seg Neutrophils # Seg Neutrophils # Man Lymphocytes # (Manual) Monocytes % (Manual) Eosinophils % (Manual) Monocytes # (Manual) Eosinophils # (Manual) D-Dimer Heparin Anti-Xa Level ABG pH POC ABG pCO2 POC ABG pO2 ABG pO2 ABG HCO3 ABG O2 Saturation ABG Base Excess ABG Hemoglobin ABG Oxyhemoglobin VBG pH ABG Sodium ABG Potassium ABG Glucose Oxyhemoglobin Sodium Potassium Chloride Carbon Dioxide BUN Creatinine Glucose POC Glucose 149 H 173 H 128 H Lactic Acid Calcium Ferritin AST Alkaline Phosphatase Magnesium Lactate Dehydrogenase Total Creatine Kinase CK-MB (CK-2) C-Reactive Protein Total Protein Albumin Troponin T HDL Cholesterol Arterial Blood Glucose Urine WBC (Auto) Urine Creatinine Urine Total Protein Phenytoin Coronavirus (PCR) Crossmatch 07/21/20 07/21/20 07/21/20 05:30 12:21 18:17 WBC RBC Hgb Hct MCHC RDW Lymph % (Auto) [place] % (Auto) Eos % (Auto) Lymph # [place] # Lymph # (Auto) [place] # (Auto) Eos # (Auto) Seg Neutrophils % Seg Neuts % (Manual) Lymphocytes % (Manual) Seg Neutrophils # Seg Neutrophils # Man Lymphocytes # (Manual) Monocytes % (Manual) Eosinophils % (Manual) Monocytes # (Manual) Eosinophils # (Manual) D-Dimer Heparin Anti-Xa Level ABG pH POC ABG pCO2 POC ABG pO2 ABG pO2 ABG HCO3 ABG O2 Saturation ABG Base Excess ABG Hemoglobin ABG Oxyhemoglobin VBG pH ABG Sodium ABG Potassium ABG Glucose Oxyhemoglobin Sodium Potassium Chloride Carbon Dioxide BUN Creatinine Glucose POC Glucose 153 H 144 H 160 H Lactic Acid Calcium Ferritin AST Alkaline Phosphatase Magnesium Lactate Dehydrogenase Total Creatine Kinase CK-MB (CK-2) C-Reactive Protein Total Protein Albumin Troponin T HDL Cholesterol Arterial Blood Glucose Urine WBC (Auto) Urine Creatinine Urine Total Protein Phenytoin Coronavirus (PCR) Crossmatch 07/22/20 07/22/20 07/22/20 00:45 05:52 12:03 WBC RBC Hgb Hct MCHC RDW Lymph % (Auto) [place] % (Auto) Eos % (Auto) Lymph # [place] # Lymph # (Auto) [place] # (Auto) Eos # (Auto) Seg Neutrophils % Seg Neuts % (Manual) Lymphocytes % (Manual) Seg Neutrophils # Seg Neutrophils # Man Lymphocytes # (Manual) Monocytes % (Manual) Eosinophils % (Manual) Monocytes # (Manual) Eosinophils # (Manual) D-Dimer Heparin Anti-Xa Level ABG pH POC ABG pCO2 POC ABG pO2 ABG pO2 ABG HCO3 ABG O2 Saturation ABG Base Excess ABG Hemoglobin ABG Oxyhemoglobin VBG pH ABG Sodium ABG Potassium ABG Glucose Oxyhemoglobin Sodium Potassium Chloride Carbon Dioxide BUN Creatinine Glucose POC Glucose 128 H 126 H 157 H Lactic Acid Calcium Ferritin AST Alkaline Phosphatase Magnesium Lactate Dehydrogenase Total Creatine Kinase CK-MB (CK-2) C-Reactive Protein Total Protein Albumin Troponin T HDL Cholesterol Arterial Blood Glucose Urine WBC (Auto) Urine Creatinine Urine Total Protein Phenytoin Coronavirus (PCR) Crossmatch 07/22/20 07/22/20 07/23/20 18:23 23:20 06:06 WBC RBC Hgb Hct MCHC RDW Lymph % (Auto) [place] % (Auto) Eos % (Auto) Lymph # [place] # Lymph # (Auto) [place] # (Auto) Eos # (Auto) Seg Neutrophils % Seg Neuts % (Manual) Lymphocytes % (Manual) Seg Neutrophils # Seg Neutrophils # Man Lymphocytes # (Manual) Monocytes % (Manual) Eosinophils % (Manual) Monocytes # (Manual) Eosinophils # (Manual) D-Dimer Heparin Anti-Xa Level ABG pH POC ABG pCO2 POC ABG pO2 ABG pO2 ABG HCO3 ABG O2 Saturation ABG Base Excess ABG Hemoglobin ABG Oxyhemoglobin VBG pH ABG Sodium ABG Potassium ABG Glucose Oxyhemoglobin Sodium Potassium Chloride Carbon Dioxide BUN Creatinine Glucose POC Glucose 152 H 122 H 143 H Lactic Acid Calcium Ferritin AST Alkaline Phosphatase Magnesium Lactate Dehydrogenase Total Creatine Kinase CK-MB (CK-2) C-Reactive Protein Total Protein Albumin Troponin T HDL Cholesterol Arterial Blood Glucose Urine WBC (Auto) Urine Creatinine Urine Total Protein Phenytoin Coronavirus (PCR) Crossmatch 07/23/20 07/23/20 07/23/20 12:11 17:38 19:23 WBC RBC Hgb Hct MCHC RDW Lymph % (Auto) [place] % (Auto) Eos % (Auto) Lymph # [place] # Lymph # (Auto) [place] # (Auto) Eos # (Auto) Seg Neutrophils % Seg Neuts % (Manual) Lymphocytes % (Manual) Seg Neutrophils # Seg Neutrophils # Man Lymphocytes # (Manual) Monocytes % (Manual) Eosinophils % (Manual) Monocytes # (Manual) Eosinophils # (Manual) D-Dimer Heparin Anti-Xa Level ABG pH POC ABG pCO2 POC ABG pO2 ABG pO2 ABG HCO3 ABG O2 Saturation ABG Base Excess ABG Hemoglobin ABG Oxyhemoglobin VBG pH ABG Sodium ABG Potassium ABG Glucose Oxyhemoglobin Sodium 129 L D Potassium 5.8 H Chloride 95.6 L Carbon Dioxide BUN 98 H Creatinine 2.1 H Glucose 167 H POC Glucose 210 H 181 H Lactic Acid Calcium Ferritin AST Alkaline Phosphatase Magnesium Lactate Dehydrogenase Total Creatine Kinase CK-MB (CK-2) C-Reactive Protein Total Protein Albumin 2.2 L Troponin T HDL Cholesterol Arterial Blood Glucose Urine WBC (Auto) Urine Creatinine Urine Total Protein Phenytoin Coronavirus (PCR) Crossmatch 07/24/20 07/24/20 07/24/20 00:00 04:29 04:29 WBC RBC 2.53 L Hgb 7.5 L Hct 22.8 L MCHC RDW 16.8 H Lymph % (Auto) 9.4 L [place] % (Auto) 10.4 H Eos % (Auto) 5.9 H Lymph # [place] # Lymph # (Auto) 0.8 L [place] # (Auto) 0.9 H Eos # (Auto) 0.5 H Seg Neutrophils % 73.5 H Seg Neuts % (Manual) Lymphocytes % (Manual) Seg Neutrophils # Seg Neutrophils # Man Lymphocytes # (Manual) Monocytes % (Manual) Eosinophils % (Manual) Monocytes # (Manual) Eosinophils # (Manual) D-Dimer Heparin Anti-Xa Level ABG pH POC ABG pCO2 POC ABG pO2 ABG pO2 ABG HCO3 ABG O2 Saturation ABG Base Excess ABG Hemoglobin ABG Oxyhemoglobin VBG pH ABG Sodium ABG Potassium ABG Glucose Oxyhemoglobin Sodium Potassium Chloride Carbon Dioxide BUN Creatinine Glucose POC Glucose 201 H Lactic Acid Calcium Ferritin AST Alkaline Phosphatase Magnesium Lactate Dehydrogenase Total Creatine Kinase CK-MB (CK-2) C-Reactive Protein Total Protein Albumin Troponin T HDL Cholesterol Arterial Blood Glucose Urine WBC (Auto) Urine Creatinine Urine Total Protein Phenytoin 9.4 L Coronavirus (PCR) Crossmatch 07/24/20 07/24/20 07/24/20 04:29 05:11 12:14 WBC RBC Hgb Hct MCHC RDW Lymph % (Auto) [place] % (Auto) Eos % (Auto) Lymph # [place] # Lymph # (Auto) [place] # (Auto) Eos # (Auto) Seg Neutrophils % Seg Neuts % (Manual) Lymphocytes % (Manual) Seg Neutrophils # Seg Neutrophils # Man Lymphocytes # (Manual) Monocytes % (Manual) Eosinophils % (Manual) Monocytes # (Manual) Eosinophils # (Manual) D-Dimer Heparin Anti-Xa Level ABG pH POC ABG pCO2 POC ABG pO2 ABG pO2 ABG HCO3 ABG O2 Saturation ABG Base Excess ABG Hemoglobin ABG Oxyhemoglobin VBG pH ABG Sodium ABG Potassium ABG Glucose Oxyhemoglobin Sodium 134 L Potassium 5.5 H Chloride Carbon Dioxide BUN 97 H Creatinine 2.2 H Glucose 149 H POC Glucose 142 H 146 H Lactic Acid Calcium Ferritin AST Alkaline Phosphatase Magnesium 2.60 H Lactate Dehydrogenase Total Creatine Kinase CK-MB (CK-2) C-Reactive Protein Total Protein Albumin Troponin T HDL Cholesterol Arterial Blood Glucose Urine WBC (Auto) Urine Creatinine Urine Total Protein Phenytoin Coronavirus (PCR) Crossmatch 07/24/20 07/24/20 07/25/20 18:12 21:00 00:08 WBC RBC Hgb Hct MCHC RDW Lymph % (Auto) [place] % (Auto) Eos % (Auto) Lymph # [place] # Lymph # (Auto) [place] # (Auto) Eos # (Auto) Seg Neutrophils % Seg Neuts % (Manual) Lymphocytes % (Manual) Seg Neutrophils # Seg Neutrophils # Man Lymphocytes # (Manual) Monocytes % (Manual) Eosinophils % (Manual) Monocytes # (Manual) Eosinophils # (Manual) D-Dimer Heparin Anti-Xa Level ABG pH POC ABG pCO2 POC ABG pO2 ABG pO2 ABG HCO3 ABG O2 Saturation ABG Base Excess ABG Hemoglobin ABG Oxyhemoglobin VBG pH ABG Sodium ABG Potassium ABG Glucose Oxyhemoglobin Sodium Potassium Chloride Carbon Dioxide BUN Creatinine Glucose POC Glucose 182 H 170 H 129 H Lactic Acid Calcium Ferritin AST Alkaline Phosphatase Magnesium Lactate Dehydrogenase Total Creatine Kinase CK-MB (CK-2) C-Reactive Protein Total Protein Albumin Troponin T HDL Cholesterol Arterial Blood Glucose Urine WBC (Auto) Urine Creatinine Urine Total Protein Phenytoin Coronavirus (PCR) Crossmatch 07/25/20 07/25/20 07/25/20 04:24 04:24 12:19 WBC RBC 2.51 L Hgb 7.5 L Hct 22.3 L MCHC RDW 17.4 H Lymph % (Auto) [place] % (Auto) Eos % (Auto) Lymph # [place] # Lymph # (Auto) [place] # (Auto) Eos # (Auto) Seg Neutrophils % Seg Neuts % (Manual) Lymphocytes % (Manual) Seg Neutrophils # Seg Neutrophils # Man Lymphocytes # (Manual) Monocytes % (Manual) Eosinophils % (Manual) Monocytes # (Manual) Eosinophils # (Manual) D-Dimer Heparin Anti-Xa Level ABG pH POC ABG pCO2 POC ABG pO2 ABG pO2 ABG HCO3 ABG O2 Saturation ABG Base Excess ABG Hemoglobin ABG Oxyhemoglobin VBG pH ABG Sodium ABG Potassium ABG Glucose Oxyhemoglobin Sodium 132 L Potassium Chloride 95.1 L Carbon Dioxide 21 L BUN 95 H Creatinine 2.5 H Glucose 108 H POC Glucose 122 H Lactic Acid Calcium Ferritin AST Alkaline Phosphatase Magnesium Lactate Dehydrogenase Total Creatine Kinase CK-MB (CK-2) C-Reactive Protein Total Protein Albumin Troponin T HDL Cholesterol Arterial Blood Glucose Urine WBC (Auto) Urine Creatinine Urine Total Protein Phenytoin Coronavirus (PCR) Crossmatch 07/25/20 07/25/20 07/26/20 18:11 23:24 04:22 WBC RBC Hgb Hct MCHC RDW Lymph % (Auto) [place] % (Auto) Eos % (Auto) Lymph # [place] # Lymph # (Auto) [place] # (Auto) Eos # (Auto) Seg Neutrophils % Seg Neuts % (Manual) Lymphocytes % (Manual) Seg Neutrophils # Seg Neutrophils # Man Lymphocytes # (Manual) Monocytes % (Manual) Eosinophils % (Manual) Monocytes # (Manual) Eosinophils # (Manual) D-Dimer Heparin Anti-Xa Level ABG pH POC ABG pCO2 POC ABG pO2 ABG pO2 ABG HCO3 ABG O2 Saturation ABG Base Excess ABG Hemoglobin ABG Oxyhemoglobin VBG pH ABG Sodium ABG Potassium ABG Glucose Oxyhemoglobin Sodium 132 L Potassium Chloride 96.2 L Carbon Dioxide 21 L BUN 99 H Creatinine 2.5 H Glucose 132 H POC Glucose 137 H 117 H Lactic Acid Calcium 8.2 L Ferritin AST Alkaline Phosphatase Magnesium Lactate Dehydrogenase Total Creatine Kinase CK-MB (CK-2) C-Reactive Protein Total Protein Albumin Troponin T HDL Cholesterol Arterial Blood Glucose Urine WBC (Auto) Urine Creatinine Urine Total Protein Phenytoin Coronavirus (PCR) Crossmatch 07/26/20 07/26/20 07/26/20 05:58 12:21 17:31 WBC RBC Hgb Hct MCHC RDW Lymph % (Auto) [place] % (Auto) Eos % (Auto) Lymph # [place] # Lymph # (Auto) [place] # (Auto) Eos # (Auto) Seg Neutrophils % Seg Neuts % (Manual) Lymphocytes % (Manual) Seg Neutrophils # Seg Neutrophils # Man Lymphocytes # (Manual) Monocytes % (Manual) Eosinophils % (Manual) Monocytes # (Manual) Eosinophils # (Manual) D-Dimer Heparin Anti-Xa Level ABG pH POC ABG pCO2 POC ABG pO2 ABG pO2 ABG HCO3 ABG O2 Saturation ABG Base Excess ABG Hemoglobin ABG Oxyhemoglobin VBG pH ABG Sodium ABG Potassium ABG Glucose Oxyhemoglobin Sodium Potassium Chloride Carbon Dioxide BUN Creatinine Glucose POC Glucose 110 H 142 H 180 H Lactic Acid Calcium Ferritin AST Alkaline Phosphatase Magnesium Lactate Dehydrogenase Total Creatine Kinase CK-MB (CK-2) C-Reactive Protein Total Protein Albumin Troponin T HDL Cholesterol Arterial Blood Glucose Urine WBC (Auto) Urine Creatinine Urine Total Protein Phenytoin Coronavirus (PCR) Crossmatch 07/26/20 07/27/20 07/27/20 23:36 03:36 05:36 WBC RBC 2.49 L Hgb 7.3 L Hct 22.2 L MCHC RDW 17.2 H Lymph % (Auto) 11.0 L [place] % (Auto) 11.7 H Eos % (Auto) Lymph # [place] # Lymph # (Auto) 0.8 L [place] # (Auto) 0.9 H Eos # (Auto) Seg Neutrophils % 72.3 H Seg Neuts % (Manual) Lymphocytes % (Manual) Seg Neutrophils # Seg Neutrophils # Man Lymphocytes # (Manual) Monocytes % (Manual) Eosinophils % (Manual) Monocytes # (Manual) Eosinophils # (Manual) D-Dimer Heparin Anti-Xa Level ABG pH POC ABG pCO2 POC ABG pO2 ABG pO2 ABG HCO3 ABG O2 Saturation ABG Base Excess ABG Hemoglobin ABG Oxyhemoglobin VBG pH ABG Sodium ABG Potassium ABG Glucose Oxyhemoglobin Sodium Potassium Chloride Carbon Dioxide BUN Creatinine Glucose POC Glucose 162 H 118 H Lactic Acid Calcium Ferritin AST Alkaline Phosphatase Magnesium Lactate Dehydrogenase Total Creatine Kinase CK-MB (CK-2) C-Reactive Protein Total Protein Albumin Troponin T HDL Cholesterol Arterial Blood Glucose Urine WBC (Auto) Urine Creatinine Urine Total Protein Phenytoin Coronavirus (PCR) Crossmatch 07/27/20 07/27/20 07/27/20 05:36 12:19 17:36 WBC RBC Hgb Hct MCHC RDW Lymph % (Auto) [place] % (Auto) Eos % (Auto) Lymph # [place] # Lymph # (Auto) [place] # (Auto) Eos # (Auto) Seg Neutrophils % Seg Neuts % (Manual) Lymphocytes % (Manual) Seg Neutrophils # Seg Neutrophils # Man Lymphocytes # (Manual) Monocytes % (Manual) Eosinophils % (Manual) Monocytes # (Manual) Eosinophils # (Manual) D-Dimer Heparin Anti-Xa Level ABG pH POC ABG pCO2 POC ABG pO2 ABG pO2 ABG HCO3 ABG O2 Saturation ABG Base Excess ABG Hemoglobin ABG Oxyhemoglobin VBG pH ABG Sodium ABG Potassium ABG Glucose Oxyhemoglobin Sodium 135 L Potassium 5.3 H Chloride Carbon Dioxide 21 L BUN 103 H Creatinine 2.6 H Glucose 113 H POC Glucose 131 H 151 H Lactic Acid Calcium 8.1 L Ferritin AST Alkaline Phosphatase Magnesium Lactate Dehydrogenase Total Creatine Kinase CK-MB (CK-2) C-Reactive Protein Total Protein Albumin Troponin T HDL Cholesterol Arterial Blood Glucose Urine WBC (Auto) Urine Creatinine Urine Total Protein Phenytoin Coronavirus (PCR) Crossmatch 07/27/20 07/28/20 07/28/20 23:29 04:30 04:30 WBC RBC 2.50 L Hgb 7.3 L Hct 22.2 L MCHC RDW 17.3 H Lymph % (Auto) 8.7 L [place] % (Auto) 8.3 H Eos % (Auto) Lymph # [place] # Lymph # (Auto) 0.7 L [place] # (Auto) Eos # (Auto) Seg Neutrophils % 79.1 H Seg Neuts % (Manual) Lymphocytes % (Manual) Seg Neutrophils # Seg Neutrophils # Man Lymphocytes # (Manual) Monocytes % (Manual) Eosinophils % (Manual) Monocytes # (Manual) Eosinophils # (Manual) D-Dimer Heparin Anti-Xa Level ABG pH POC ABG pCO2 POC ABG pO2 ABG pO2 ABG HCO3 ABG O2 Saturation ABG Base Excess ABG Hemoglobin ABG Oxyhemoglobin VBG pH ABG Sodium ABG Potassium ABG Glucose Oxyhemoglobin Sodium 135 L Potassium 5.2 H Chloride 96.8 L Carbon Dioxide 20 L BUN 107 H Creatinine 2.9 H Glucose POC Glucose 124 H Lactic Acid Calcium 8.2 L Ferritin AST Alkaline Phosphatase Magnesium 2.70 H Lactate Dehydrogenase Total Creatine Kinase CK-MB (CK-2) C-Reactive Protein Total Protein Albumin Troponin T HDL Cholesterol Arterial Blood Glucose Urine WBC (Auto) Urine Creatinine Urine Total Protein Phenytoin Coronavirus (PCR) Crossmatch 07/28/20 07/29/20 07/29/20 17:35 00:11 06:45 WBC RBC Hgb Hct MCHC RDW Lymph % (Auto) [place] % (Auto) Eos % (Auto) Lymph # [place] # Lymph # (Auto) [place] # (Auto) Eos # (Auto) Seg Neutrophils % Seg Neuts % (Manual) Lymphocytes % (Manual) Seg Neutrophils # Seg Neutrophils # Man Lymphocytes # (Manual) Monocytes % (Manual) Eosinophils % (Manual) Monocytes # (Manual) Eosinophils # (Manual) D-Dimer Heparin Anti-Xa Level ABG pH POC ABG pCO2 POC ABG pO2 ABG pO2 ABG HCO3 ABG O2 Saturation ABG Base Excess ABG Hemoglobin ABG Oxyhemoglobin VBG pH ABG Sodium ABG Potassium ABG Glucose Oxyhemoglobin Sodium Potassium Chloride Carbon Dioxide BUN Creatinine Glucose POC Glucose 146 H 143 H 179 H Lactic Acid Calcium Ferritin AST Alkaline Phosphatase Magnesium Lactate Dehydrogenase Total Creatine Kinase CK-MB (CK-2) C-Reactive Protein Total Protein Albumin Troponin T HDL Cholesterol Arterial Blood Glucose Urine WBC (Auto) Urine Creatinine Urine Total Protein Phenytoin Coronavirus (PCR) Crossmatch 07/29/20 07/29/20 07/29/20 11:54 13:01 13:01 WBC RBC 2.40 L Hgb 7.1 L Hct 20.9 L MCHC RDW 17.5 H Lymph % (Auto) [place] % (Auto) Eos % (Auto) Lymph # [place] # Lymph # (Auto) [place] # (Auto) Eos # (Auto) Seg Neutrophils % Seg Neuts % (Manual) 86.0 H Lymphocytes % (Manual) 6.0 L Seg Neutrophils # Seg Neutrophils # Man 8.9 H Lymphocytes # (Manual) 0.6 L Monocytes % (Manual) 8.0 H Eosinophils % (Manual) Monocytes # (Manual) Eosinophils # (Manual) D-Dimer Heparin Anti-Xa Level ABG pH POC ABG pCO2 POC ABG pO2 ABG pO2 ABG HCO3 ABG O2 Saturation ABG Base Excess ABG Hemoglobin ABG Oxyhemoglobin VBG pH ABG Sodium ABG Potassium ABG Glucose Oxyhemoglobin Sodium 129 L Potassium Chloride 92.9 L Carbon Dioxide BUN 112 H Creatinine 3.0 H Glucose 142 H POC Glucose 170 H Lactic Acid Calcium 7.9 L Ferritin AST Alkaline Phosphatase Magnesium Lactate Dehydrogenase Total Creatine Kinase CK-MB (CK-2) C-Reactive Protein Total Protein Albumin Troponin T HDL Cholesterol Arterial Blood Glucose Urine WBC (Auto) Urine Creatinine Urine Total Protein Phenytoin Coronavirus (PCR) Crossmatch 07/29/20 07/30/20 07/30/20 22:45 05:01 11:45 WBC RBC Hgb Hct MCHC RDW Lymph % (Auto) [place] % (Auto) Eos % (Auto) Lymph # [place] # Lymph # (Auto) [place] # (Auto) Eos # (Auto) Seg Neutrophils % Seg Neuts % (Manual) Lymphocytes % (Manual) Seg Neutrophils # Seg Neutrophils # Man Lymphocytes # (Manual) Monocytes % (Manual) Eosinophils % (Manual) Monocytes # (Manual) Eosinophils # (Manual) D-Dimer Heparin Anti-Xa Level ABG pH POC ABG pCO2 POC ABG pO2 ABG pO2 ABG HCO3 ABG O2 Saturation ABG Base Excess ABG Hemoglobin ABG Oxyhemoglobin VBG pH ABG Sodium ABG Potassium ABG Glucose Oxyhemoglobin Sodium Potassium Chloride Carbon Dioxide BUN Creatinine Glucose POC Glucose 129 H 150 H 130 H Lactic Acid Calcium Ferritin AST Alkaline Phosphatase Magnesium Lactate Dehydrogenase Total Creatine Kinase CK-MB (CK-2) C-Reactive Protein Total Protein Albumin Troponin T HDL Cholesterol Arterial Blood Glucose Urine WBC (Auto) Urine Creatinine Urine Total Protein Phenytoin Coronavirus (PCR) Crossmatch 07/30/20 07/30/20 07/30/20 17:54 21:26 23:58 WBC RBC Hgb Hct MCHC RDW Lymph % (Auto) [place] % (Auto) Eos % (Auto) Lymph # [place] # Lymph # (Auto) [place] # (Auto) Eos # (Auto) Seg Neutrophils % Seg Neuts % (Manual) Lymphocytes % (Manual) Seg Neutrophils # Seg Neutrophils # Man Lymphocytes # (Manual) Monocytes % (Manual) Eosinophils % (Manual) Monocytes # (Manual) Eosinophils # (Manual) D-Dimer Heparin Anti-Xa Level ABG pH POC ABG pCO2 POC ABG pO2 ABG pO2 ABG HCO3 ABG O2 Saturation ABG Base Excess ABG Hemoglobin ABG Oxyhemoglobin VBG pH ABG Sodium ABG Potassium ABG Glucose Oxyhemoglobin Sodium Potassium Chloride Carbon Dioxide BUN Creatinine Glucose POC Glucose 143 H 124 H 142 H Lactic Acid Calcium Ferritin AST Alkaline Phosphatase Magnesium Lactate Dehydrogenase Total Creatine Kinase CK-MB (CK-2) C-Reactive Protein Total Protein Albumin Troponin T HDL Cholesterol Arterial Blood Glucose Urine WBC (Auto) Urine Creatinine Urine Total Protein Phenytoin Coronavirus (PCR) Crossmatch 07/31/20 07/31/20 07/31/20 05:43 11:35 18:07 WBC RBC Hgb Hct MCHC RDW Lymph % (Auto) [place] % (Auto) Eos % (Auto) Lymph # [place] # Lymph # (Auto) [place] # (Auto) Eos # (Auto) Seg Neutrophils % Seg Neuts % (Manual) Lymphocytes % (Manual) Seg Neutrophils # Seg Neutrophils # Man Lymphocytes # (Manual) Monocytes % (Manual) Eosinophils % (Manual) Monocytes # (Manual) Eosinophils # (Manual) D-Dimer Heparin Anti-Xa Level ABG pH POC ABG pCO2 POC ABG pO2 ABG pO2 ABG HCO3 ABG O2 Saturation ABG Base Excess ABG Hemoglobin ABG Oxyhemoglobin VBG pH ABG Sodium ABG Potassium ABG Glucose Oxyhemoglobin Sodium Potassium Chloride Carbon Dioxide BUN Creatinine Glucose POC Glucose 152 H 179 H 129 H Lactic Acid Calcium Ferritin AST Alkaline Phosphatase Magnesium Lactate Dehydrogenase Total Creatine Kinase CK-MB (CK-2) C-Reactive Protein Total Protein Albumin Troponin T HDL Cholesterol Arterial Blood Glucose Urine WBC (Auto) Urine Creatinine Urine Total Protein Phenytoin Coronavirus (PCR) Crossmatch 07/31/20 07/31/20 08/01/20 21:30 22:12 00:25 WBC RBC Hgb Hct MCHC RDW Lymph % (Auto) [place] % (Auto) Eos % (Auto) Lymph # [place] # Lymph # (Auto) [place] # (Auto) Eos # (Auto) Seg Neutrophils % Seg Neuts % (Manual) Lymphocytes % (Manual) Seg Neutrophils # Seg Neutrophils # Man Lymphocytes # (Manual) Monocytes % (Manual) Eosinophils % (Manual) Monocytes # (Manual) Eosinophils # (Manual) D-Dimer Heparin Anti-Xa Level ABG pH POC ABG pCO2 POC ABG pO2 ABG pO2 ABG HCO3 ABG O2 Saturation ABG Base Excess ABG Hemoglobin ABG Oxyhemoglobin VBG pH ABG Sodium ABG Potassium ABG Glucose Oxyhemoglobin Sodium Potassium Chloride Carbon Dioxide BUN Creatinine Glucose POC Glucose 143 H 122 H 134 H Lactic Acid Calcium Ferritin AST Alkaline Phosphatase Magnesium Lactate Dehydrogenase Total Creatine Kinase CK-MB (CK-2) C-Reactive Protein Total Protein Albumin Troponin T HDL Cholesterol Arterial Blood Glucose Urine WBC (Auto) Urine Creatinine Urine Total Protein Phenytoin Coronavirus (PCR) Crossmatch 08/01/20 08/01/20 08/01/20 04:43 05:41 12:23 WBC RBC Hgb Hct MCHC RDW Lymph % (Auto) [place] % (Auto) Eos % (Auto) Lymph # [place] # Lymph # (Auto) [place] # (Auto) Eos # (Auto) Seg Neutrophils % Seg Neuts % (Manual) Lymphocytes % (Manual) Seg Neutrophils # Seg Neutrophils # Man Lymphocytes # (Manual) Monocytes % (Manual) Eosinophils % (Manual) Monocytes # (Manual) Eosinophils # (Manual) D-Dimer Heparin Anti-Xa Level ABG pH POC ABG pCO2 POC ABG pO2 ABG pO2 ABG HCO3 ABG O2 Saturation ABG Base Excess ABG Hemoglobin ABG Oxyhemoglobin VBG pH ABG Sodium ABG Potassium ABG Glucose Oxyhemoglobin Sodium 128 L Potassium 5.8 H Chloride 90.5 L Carbon Dioxide 19 L BUN 122 H Creatinine 3.4 H Glucose 124 H POC Glucose 130 H 128 H Lactic Acid Calcium 8.0 L Ferritin AST Alkaline Phosphatase Magnesium Lactate Dehydrogenase Total Creatine Kinase CK-MB (CK-2) C-Reactive Protein Total Protein Albumin Troponin T HDL Cholesterol Arterial Blood Glucose Urine WBC (Auto) Urine Creatinine Urine Total Protein Phenytoin Coronavirus (PCR) Crossmatch 08/01/20 08/02/20 08/02/20 17:28 00:06 05:32 WBC RBC Hgb Hct MCHC RDW Lymph % (Auto) [place] % (Auto) Eos % (Auto) Lymph # [place] # Lymph # (Auto) [place] # (Auto) Eos # (Auto) Seg Neutrophils % Seg Neuts % (Manual) Lymphocytes % (Manual) Seg Neutrophils # Seg Neutrophils # Man Lymphocytes # (Manual) Monocytes % (Manual) Eosinophils % (Manual) Monocytes # (Manual) Eosinophils # (Manual) D-Dimer Heparin Anti-Xa Level ABG pH POC ABG pCO2 POC ABG pO2 ABG pO2 ABG HCO3 ABG O2 Saturation ABG Base Excess ABG Hemoglobin ABG Oxyhemoglobin VBG pH ABG Sodium ABG Potassium ABG Glucose Oxyhemoglobin Sodium Potassium Chloride Carbon Dioxide BUN Creatinine Glucose POC Glucose 121 H 128 H 177 H Lactic Acid Calcium Ferritin AST Alkaline Phosphatase Magnesium Lactate Dehydrogenase Total Creatine Kinase CK-MB (CK-2) C-Reactive Protein Total Protein Albumin Troponin T HDL Cholesterol Arterial Blood Glucose Urine WBC (Auto) Urine Creatinine Urine Total Protein Phenytoin Coronavirus (PCR) Crossmatch 08/02/20 08/02/20 11:25 12:34 WBC RBC Hgb Hct MCHC RDW Lymph % (Auto) [place] % (Auto) Eos % (Auto) Lymph # [place] # Lymph # (Auto) [place] # (Auto) Eos # (Auto) Seg Neutrophils % Seg Neuts % (Manual) Lymphocytes % (Manual) Seg Neutrophils # Seg Neutrophils # Man Lymphocytes # (Manual) Monocytes % (Manual) Eosinophils % (Manual) Monocytes # (Manual) Eosinophils # (Manual) D-Dimer Heparin Anti-Xa Level ABG pH 7.344 L POC ABG pCO2 POC ABG pO2 ABG pO2 101.1 H ABG HCO3 ABG O2 Saturation ABG Base Excess -4.5 L ABG Hemoglobin 6.6 L ABG Oxyhemoglobin VBG pH ABG Sodium ABG Potassium ABG Glucose Oxyhemoglobin Sodium Potassium Chloride Carbon Dioxide BUN Creatinine Glucose POC Glucose 196 H Lactic Acid Calcium Ferritin AST Alkaline Phosphatase Magnesium Lactate Dehydrogenase Total Creatine Kinase CK-MB (CK-2) C-Reactive Protein Total Protein Albumin Troponin T HDL Cholesterol Arterial Blood Glucose Urine WBC (Auto) Urine Creatinine Urine Total Protein Phenytoin Coronavirus (PCR) Crossmatch Chest x-ray: other Allied health notes reviewed: nursing
--- NOTE | 2020-08-02 14:10 | Progress Note ---
Subjective Date of service: 08/02/20 Principal diagnosis: Ac hypoxemic resp failure; COVID-19; pneumonia; CHF; Pulm HTN; OHS; DM II Interval history: 64 YO Female with a medical history of HTN, Diastolic CHF, Pulmonary HTN, DM, Obesity Hypoventilation Syndrome presents to ED for evaluation of shortness of breath. As per staff, the EMS was notified for difficulty breathing. Upon arrival to the patient's home the patient was found to be in distress and was subsequently transported to [facility] for further evaluation and care. In route to [facility] the patient developed cardiac arrest and was treated in accordance with ACLS protocol with return of ROSC. Patient was seen and evaluated in the emergency department and was intubated and placed on ventilatory support. Patient admitted to ICU. Critical care team consulted in ED. She was found to have COVID-19 infection and was started on steroids and remdesivir. ID was consulted. Cardiology was consulted for her systolic heart failure and cardiac arrest. Patient completed treatment for COVID-19, then develop superimposed bacterial pneumonia with Klebsiella. She is now extubated, 06/12/2020 but remains confused and requiring high flow O2 and intermittent BiPAP. Patient had another cardiac arrest reintubated 06/26/2020, currently in ICU vent dependent, unable to do trach and PEG due to persistent COVID-19 positive state, as well as anoxic brain injury, unable to get MRI , neurology following. Assessment and plan: 05/28/2020 COVID-19 test positive 06/29/2020 COVID-19 test positive 07/14/2020 COVID-19 test positive --Acute hypoxemic respiratory failure; vent dependent intubated on admission, extubated on 06/12/20 then placed on high flow o2 patient developed another respiratory arrest on 06/26 - reintubated Patient not tolerating weaning parameters CC following, Surgery evaluated the patient for trach and PEG COVID-19 test positive x3, trach and PEG pending -- Hypertension; well controlled Continue amlodipine, clonidine and hydralazine And minoxidil, closely monitor blood pressures PRN labetalol --s/p cardiopulmonary arrest on admission, 06/26 and 07/01, Bradycardia Patient is on dopamine and epinephrine for bradycardia ? Will stop beta-hugh --Possible anoxic brain injury, neurology consulted, neuro requested MRI brain, EEG MRI brain could not be done due to body habitus, --Seizures seizure precautions; continue Keppra, and Dilantin EEG showed epileptiform discharges per review of neurology note --Rectal bleeding; resolved --Acute blood loss anemia; total 3 units PRBC transfused Closely monitor H&H, GI following, no plans of endoscopy --Severe sepsis; completed antibiotics per ID persistently positive for COVID-19 and Klebsiella pneumoniae --COVID-19 b/l PNA Completed remdesivir on 06/02 Completed dexamethasone - Last dose 06/07 COVID 19 test positive x 3 during this admission --Superficial left cephalic vein DVT/elevated D-dimers[COVID 19] Patient initially started on heparin drip from 05/29/20 D-dimers improved [phone] treated with Eliquis 5 mg twice a day for 1 week[per ID] stop date 06/26/2020 -- Acute toxic metabolic encephalopathy, POA likely from sepsis and s/p cardiac arrest with possible anoxic injury -- Acute renal failure: Worsening BUN/creatinine 123/3.4 avoid nephrotoxins, Nephrology note reviewed Plan for hemodialysis per request of family --Klebsiella pneumonia: ID evaluated completed second round of 5 days of cefepime on 07/04/2020 --Acute on chronic systolic heart failure Cardiology following. Ef 45% -- Coffee ground emesis -Stress ulcers Possible stress ulcers, On PPI H/H again dropped - transfuse GI evaluated --Transaminitis. Etiology likely from COVID-19. cont to monitor --Hyperkalemia; improved --Shock; resolved -- DVT prophylaxis Eliquis, SCD to bilateral lower extremities while in bed -- Advance care planning Patient is critically ill with multiple medical problems Poor prognosis, family updated and requesting full code 07/11/2020. Patient currently on mechanical ventilation AC/PRVC with rate of 12, tidal volume 450, FiO2 30% and PEEP of 6 07/12/2020. Patient placed on CPAP with pressure support of 10 and tolerating well. Continue PSB trials as tolerated. 07/13/2020. Patient currently with AC mode rate 12, tidal volume 450, FiO2 30% and PEEP of 6. Surgery has been consulted for trach and PEG placement. Recall nephrology for renal insufficiency. 07/14/20; surgery evaluated for trach and PEG , pending call with test which is is positive today COVID-19 test positive x3 since admission 07/16; trach and PEG pending neuro evaluation 07/17; vent dependent, trach PEG pending neuro evaluation, pending MRI EEG study[already ordered] 07/18; unable to do MRI, due to body habitus, morbid obesity, radiology consult Patient critically ill very poor prognosis 07/19; remains intubated on vent, clinically no change 07/20; unable to wean, needs trach and PEG, need MRI , unable to do due to body habitus 07/21; clinically no change, remains intubated on ventilatory support 07/22; I recommend family meeting, to discuss the goals of treatment, discussed with case management 07/23; patient's blood pressures in the lower range, will hold antihypertensives, fluid bolus, if no improvement Levophed per protocol 07/24: Patient remains critically ill, unable to obtain MRI at this facility and unstable for transfer, Will reconsult Nephrology as creatinine now worse, with worsening Hypotension and Hyperkalemia- Overnight the patient required pressors Secondary to Hypotension, Will place PICC line. Will give kayxalate, continue to hold all BP meds. Hyponatermia improving. 07/24; patient remains to critically ill, nephrology consult appreciated, creatinine is worsening. Hypotension resolved with. Still patient is hypernatremic 07/26; patient is hypertensive and her blood pressure medications were resumed and as needed medications also started. Patient is being followed by nephrology for hyponatremia and AVANI. Patient has anemia. We will check labs in the morning. 07/27; patient is still intubated and on mechanical ventilation. Followed by pulmonary critical care. Nephrology is considering to dialyze the patient after discussing with the family. 07/28; patient is intubated and on mechanical ventilation, patient is nonresponsive without pressors. Creatinine is trending up and nephrology is considering to dialysis. I called her son Toño at [phone] and discussed about the prognosis of the patient and I gave the option of hospice care/withdraw care and he said he is going to talk to his sister and will get back to me. 07/29/2020;patient is intubated and on mechanical ventilation, patient is nonresponsive without pressors. Creatinine is trending up and nephrology is considering to dialysis. I called her son Toño on 07/28 at [phone] and discussed about the prognosis of the patient and I gave the option of hospice care/withdraw care and he said he is going to talk to his sister and will get back to me. Nephrology discussed with the son this morning and the son said he want aggressive management and she is going to be started on dialysis. 07/30; patient's son wants hospice. Declined dialysis. 07/31; plan was to send the patient to hospice but her son does not want to sign AND. Family declined dialysis. Going to talk to the son. 08/01; plans to send the patient to hospice. Patient does not want to sign AND. We called him back but he did not answer. 08/02 intubated, unresponsive, all interdisciplinary notes reviewed, apparently patient's family opted for dialysis, all interdisciplinary notes reviewed History Interval history: Patient was seen and evaluated this morning Patient is intubated and on mechanical ventilation Not responding Hospitalist Physical - Physical exam Narrative exam: Intubated and on mechanical ventilation On 30% FiO2 The patient is morbidly obese. Vital signs as documented. Head exam is unremarkable. No scleral icterus . Neck : No JVD Lungs are clear to auscultation. Heart: Regular rate and rhythm Abdomen: Benign Extremities : No leg edema [employer]: Intubated. Unresponsive Objective - Constitutional Vitals: Vital Signs - 12hr 08/02/20 08/02/20 08/02/20 03:01 03:22 04:00 Temperature 98.8 F Pulse Rate 50 L 51 L Pulse Rate [ 65 From Monitor] Respiratory 10 L 12 Rate Blood Pressure 132/45 O2 Sat by Pulse 97 97 Oximetry 08/02/20 08/02/20 08/02/20 04:01 04:27 05:01 Temperature Pulse Rate 48 L 48 L 51 L Pulse Rate [ From Monitor] Respiratory 19 14 Rate Blood Pressure 121/43 121/43 126/52 O2 Sat by Pulse 98 97 98 Oximetry 08/02/20 08/02/20 08/02/20 06:01 07:00 07:03 Temperature Pulse Rate 51 L 48 L 46 L Pulse Rate [ From Monitor] Respiratory 19 12 Rate Blood Pressure 126/52 144/58 144/58 O2 Sat by Pulse 98 98 Oximetry 08/02/20 08/02/20 08/02/20 08:00 08:01 08:31 Temperature 98.1 F Pulse Rate 48 L 48 L 48 L Pulse Rate [ 48 L From Monitor] Respiratory 12 16 Rate Blood Pressure 140/47 140/47 O2 Sat by Pulse 98 98 97 Oximetry 08/02/20 08/02/20 08/02/20 09:01 09:19 09:20 Temperature Pulse Rate 49 L 49 L 48 L Pulse Rate [ From Monitor] Respiratory 13 Rate Blood Pressure 148/45 148/45 148/45 O2 Sat by Pulse 98 Oximetry 08/02/20 08/02/20 08/02/20 10:01 11:01 11:48 Temperature Pulse Rate 44 L 38 L 35 L Pulse Rate [ From Monitor] Respiratory 12 19 19 Rate Blood Pressure 148/51 112/32 112/32 O2 Sat by Pulse 98 99 96 Oximetry 08/02/20 08/02/20 08/02/20 12:00 12:01 12:17 Temperature Pulse Rate 55 L 53 L 58 L Pulse Rate [ 53 L From Monitor] Respiratory 18 13 21 Rate Blood Pressure 112/41 176/47 O2 Sat by Pulse 92 89 90 Oximetry 08/02/20 08/02/20 08/02/20 12:19 12:21 12:23 Temperature Pulse Rate 56 L 57 L 57 L Pulse Rate [ From Monitor] Respiratory 16 17 16 Rate Blood Pressure 151/41 103/31 103/31 O2 Sat by Pulse 92 92 91 Oximetry 08/02/20 08/02/20 08/02/20 12:25 12:27 12:29 Temperature Pulse Rate 57 L 56 L 56 L Pulse Rate [ From Monitor] Respiratory 20 19 21 Rate Blood Pressure 103/31 103/31 103/31 O2 Sat by Pulse 92 92 92 Oximetry 08/02/20 08/02/20 08/02/20 12:31 12:33 12:35 Temperature Pulse Rate 54 L 54 L 55 L Pulse Rate [ From Monitor] Respiratory 18 17 15 Rate Blood Pressure 125/46 125/46 125/46 O2 Sat by Pulse 94 92 93 Oximetry 08/02/20 08/02/20 08/02/20 12:37 12:39 12:41 Temperature Pulse Rate 53 L 52 L 52 L Pulse Rate [ From Monitor] Respiratory 18 19 20 Rate Blood Pressure 125/46 125/46 125/46 O2 Sat by Pulse 92 92 92 Oximetry 08/02/20 08/02/20 08/02/20 12:43 12:45 12:46 Temperature Pulse Rate 50 L 51 L 50 L Pulse Rate [ From Monitor] Respiratory 18 18 18 Rate Blood Pressure 125/46 115/39 115/39 O2 Sat by Pulse 92 93 94 Oximetry 08/02/20 08/02/20 08/02/20 12:47 12:49 12:51 Temperature Pulse Rate 51 L 49 L 51 L Pulse Rate [ From Monitor] Respiratory 16 16 18 Rate Blood Pressure 115/39 115/39 115/39 O2 Sat by Pulse 92 92 92 Oximetry 08/02/20 08/02/20 08/02/20 12:53 12:55 12:57 Temperature Pulse Rate 51 L 53 L 50 L Pulse Rate [ From Monitor] Respiratory 18 18 19 Rate Blood Pressure 115/39 115/39 115/39 O2 Sat by Pulse 92 91 92 Oximetry 08/02/20 08/02/20 08/02/20 12:59 13:01 13:03 Temperature Pulse Rate 49 L 50 L 49 L Pulse Rate [ From Monitor] Respiratory 19 24 14 Rate Blood Pressure 115/39 112/37 112/37 O2 Sat by Pulse 92 93 92 Oximetry 08/02/20 08/02/20 08/02/20 13:05 13:07 13:09 Temperature Pulse Rate 50 L 50 L 50 L Pulse Rate [ From Monitor] Respiratory 16 19 17 Rate Blood Pressure 112/37 112/37 112/37 O2 Sat by Pulse 92 92 92 Oximetry 08/02/20 08/02/20 08/02/20 13:11 13:13 13:15 Temperature Pulse Rate 51 L 51 L 51 L Pulse Rate [ From Monitor] Respiratory 21 18 18 Rate Blood Pressure 112/37 112/37 117/43 O2 Sat by Pulse 92 93 92 Oximetry 08/02/20 08/02/20 08/02/20 13:17 13:19 13:21 Temperature Pulse Rate 51 L 52 L 50 L Pulse Rate [ From Monitor] Respiratory 17 18 14 Rate Blood Pressure 117/43 117/43 117/43 O2 Sat by Pulse 92 93 91 Oximetry 08/02/20 08/02/20 08/02/20 13:23 13:25 13:27 Temperature Pulse Rate 50 L 51 L 51 L Pulse Rate [ From Monitor] Respiratory 16 19 17 Rate Blood Pressure 117/43 117/43 117/43 O2 Sat by Pulse 91 92 92 Oximetry 08/02/20 08/02/20 08/02/20 13:29 13:30 13:31 Temperature Pulse Rate 51 L 51 L 51 L Pulse Rate [ From Monitor] Respiratory 17 18 20 Rate Blood Pressure 117/43 119/41 119/41 O2 Sat by Pulse 92 92 91 Oximetry 08/02/20 13:33 Temperature Pulse Rate 51 L Pulse Rate [ From Monitor] Respiratory 16 Rate Blood Pressure 119/41 O2 Sat by Pulse 91 Oximetry - Labs CBC & Chem 7: 07/29/20 13:01 08/01/20 04:43 Labs: Abnormal lab results 08/01/20 08/02/20 08/02/20 Range/Units 17:28 00:06 05:32 ABG pH (7.350-7.450) pH Units ABG pO2 (80.0-90.0) mm Hg ABG Base Excess (-2.0-3.0) mmol/L ABG Hemoglobin (12.0-16.0) gm/dl POC Glucose 121 H 128 H 177 H (70-105) mg/dL 08/02/20 08/02/20 Range/Units 11:25 12:34 ABG pH 7.344 L (7.350-7.450) pH Units ABG pO2 101.1 H (80.0-90.0) mm Hg ABG Base Excess -4.5 L (-2.0-3.0) mmol/L ABG Hemoglobin 6.6 L (12.0-16.0) gm/dl POC Glucose 196 H (70-105) mg/dL HEART Score - HEART Score Troponin: Troponin T 0.067 ng/mL (0.00-0.029) H 07/01/20 06:01
--- NOTE | 2020-08-02 14:56 | Progress Note ---
Assessment and Plan - Patient Problems (1) Acute kidney injury (AVANI) with acute tubular necrosis (ATN) Current Visit: Yes Status: Acute Plan to address problem: Kidney function had been worsening. Patient had poor diuretic response to Lasix IV. She also did not respond to Bumex and infusions with albumin infusion. Family had decided No Dialysis but now want Dialysis. Awaiting vas cath placement and then Hemodialysis. (2) Acute hypoxemic respiratory failure Current Visit: Yes Status: Acute Plan to address problem: Being managed by pulmonary. S/p Extubation 06/12. Back on respirator. Continue management by pulmonary/critical care (3) Cardiac arrest Current Visit: Yes Status: Acute Plan to address problem: Patient is improving (4) Metabolic encephalopathy Current Visit: Yes Status: Acute Plan to address problem: Mental status is ? improving (5) Pneumonia due to COVID-19 virus Current Visit: Yes Status: Acute Plan to address problem: Patient has completed 5 days of Remdesevir. Completed course of steroids. (6) Cardiomyopathy Current Visit: No Status: Acute Qualifiers: Cardiomyopathy type: unspecified Qualified Code(s): I42.9 - Cardiomyopathy, unspecified Plan to address problem: Patient has peripheral edema. Has not responded to Bumex infusion. Will start dialysis and monitor response (7) Hyperglycemia due to type 2 diabetes mellitus Current Visit: No Status: Acute Qualifiers: Diabetes mellitus intermodal dispatcher insulin use: without snf use Qualified Code(s): E11.65 - Type 2 diabetes mellitus with hyperglycemia Plan to address problem: Blood sugar management by primary attending Subjective Date of service: 08/02/20 Principal diagnosis: Ac hypoxemic resp failure; COVID-19; pneumonia; CHF; Pulm HTN; OHS; DM II Interval history: Chart reviewed. I did not do physical exam at the bedside due to PPE conservation with the current COVID-19 pandemic. Awaiting line placement by vascular surgeon Objective - Exam Narrative Exam: I did not do physical exam at the bedside due to PPE conservation with the current COVID-19 pandemic - Vital Signs Vital signs: Vital Signs - 12hr 08/02/20 08/02/20 08/02/20 03:01 03:22 04:00 Temperature 98.8 F Pulse Rate 50 L 51 L Pulse Rate [ 65 From Monitor] Respiratory 10 L 12 Rate Blood Pressure 132/45 O2 Sat by Pulse 97 97 Oximetry 10/08/02/20 08/02/20 04:01 04:27 05:01 Temperature Pulse Rate 48 L 48 L 51 L Pulse Rate [ From Monitor] Respiratory 19 14 Rate Blood Pressure 121/43 121/43 126/52 O2 Sat by Pulse 98 97 98 Oximetry 08/02/20 08/02/20 08/02/20 06:01 07:00 07:03 Temperature Pulse Rate 51 L 48 L 46 L Pulse Rate [ From Monitor] Respiratory 19 12 Rate Blood Pressure 126/52 144/58 144/58 O2 Sat by Pulse 98 98 Oximetry 08/02/20 08/02/20 08/02/20 08:00 08:01 08:31 Temperature 98.1 F Pulse Rate 48 L 48 L 48 L Pulse Rate [ 48 L From Monitor] Respiratory 12 16 Rate Blood Pressure 140/47 140/47 O2 Sat by Pulse 98 98 97 Oximetry 08/02/20 08/02/20 08/02/20 09:01 09:19 09:20 Temperature Pulse Rate 49 L 49 L 48 L Pulse Rate [ From Monitor] Respiratory 13 Rate Blood Pressure 148/45 148/45 148/45 O2 Sat by Pulse 98 Oximetry 08/02/20 08/02/20 08/02/20 10:01 11:01 11:48 Temperature Pulse Rate 44 L 38 L 35 L Pulse Rate [ From Monitor] Respiratory 12 19 19 Rate Blood Pressure 148/51 112/32 112/32 O2 Sat by Pulse 98 99 96 Oximetry 08/02/20 08/02/20 08/02/20 12:00 12:01 12:17 Temperature Pulse Rate 55 L 53 L 58 L Pulse Rate [ 53 L From Monitor] Respiratory 18 13 21 Rate Blood Pressure 112/41 176/47 O2 Sat by Pulse 92 89 90 Oximetry 08/02/20 08/02/20 08/02/20 12:19 12:21 12:23 Temperature Pulse Rate 56 L 57 L 57 L Pulse Rate [ From Monitor] Respiratory 16 17 16 Rate Blood Pressure 151/41 103/31 103/31 O2 Sat by Pulse 92 92 91 Oximetry 08/02/20 08/02/20 08/02/20 12:25 12:27 12:29 Temperature Pulse Rate 57 L 56 L 56 L Pulse Rate [ From Monitor] Respiratory 20 19 21 Rate Blood Pressure 103/31 103/31 103/31 O2 Sat by Pulse 92 92 92 Oximetry 08/02/20 08/02/20 08/02/20 12:31 12:33 12:35 Temperature Pulse Rate 54 L 54 L 55 L Pulse Rate [ From Monitor] Respiratory 18 17 15 Rate Blood Pressure 125/46 125/46 125/46 O2 Sat by Pulse 94 92 93 Oximetry 08/02/20 08/02/20 08/02/20 12:37 12:39 12:41 Temperature Pulse Rate 53 L 52 L 52 L Pulse Rate [ From Monitor] Respiratory 18 19 20 Rate Blood Pressure 125/46 125/46 125/46 O2 Sat by Pulse 92 92 92 Oximetry 08/02/20 08/02/20 08/02/20 12:43 12:45 12:46 Temperature Pulse Rate 50 L 51 L 50 L Pulse Rate [ From Monitor] Respiratory 18 18 18 Rate Blood Pressure 125/46 115/39 115/39 O2 Sat by Pulse 92 93 94 Oximetry 08/02/20 08/02/20 08/02/20 12:47 12:49 12:51 Temperature Pulse Rate 51 L 49 L 51 L Pulse Rate [ From Monitor] Respiratory 16 16 18 Rate Blood Pressure 115/39 115/39 115/39 O2 Sat by Pulse 92 92 92 Oximetry 08/02/20 08/02/20 08/02/20 12:53 12:55 12:57 Temperature Pulse Rate 51 L 53 L 50 L Pulse Rate [ From Monitor] Respiratory 18 18 19 Rate Blood Pressure 115/39 115/39 115/39 O2 Sat by Pulse 92 91 92 Oximetry 08/02/20 08/02/20 08/02/20 12:59 13:01 13:03 Temperature Pulse Rate 49 L 50 L 49 L Pulse Rate [ From Monitor] Respiratory 19 24 14 Rate Blood Pressure 115/39 112/37 112/37 O2 Sat by Pulse 92 93 92 Oximetry 08/02/20 08/02/20 08/02/20 13:05 13:07 13:09 Temperature Pulse Rate 50 L 50 L 50 L Pulse Rate [ From Monitor] Respiratory 16 19 17 Rate Blood Pressure 112/37 112/37 112/37 O2 Sat by Pulse 92 92 92 Oximetry 08/02/20 08/02/20 08/02/20 13:11 13:13 13:15 Temperature Pulse Rate 51 L 51 L 51 L Pulse Rate [ From Monitor] Respiratory 21 18 18 Rate Blood Pressure 112/37 112/37 117/43 O2 Sat by Pulse 92 93 92 Oximetry 08/02/20 08/02/20 08/02/20 13:17 13:19 13:21 Temperature Pulse Rate 51 L 52 L 50 L Pulse Rate [ From Monitor] Respiratory 17 18 14 Rate Blood Pressure 117/43 117/43 117/43 O2 Sat by Pulse 92 93 91 Oximetry 08/02/20 08/02/20 08/02/20 13:23 13:25 13:27 Temperature Pulse Rate 50 L 51 L 51 L Pulse Rate [ From Monitor] Respiratory 16 19 17 Rate Blood Pressure 117/43 117/43 117/43 O2 Sat by Pulse 91 92 92 Oximetry 08/02/20 08/02/20 08/02/20 13:29 13:30 13:31 Temperature Pulse Rate 51 L 51 L 51 L Pulse Rate [ From Monitor] Respiratory 17 18 20 Rate Blood Pressure 117/43 119/41 119/41 O2 Sat by Pulse 92 92 91 Oximetry 08/02/20 13:33 Temperature Pulse Rate 51 L Pulse Rate [ From Monitor] Respiratory 16 Rate Blood Pressure 119/41 O2 Sat by Pulse 91 Oximetry - Lab 07/29/20 13:01 08/01/20 04:43 Most recent lab results ABG pH 7.344 pH Units (7.350-7.450) L 08/02/20 11:25 ABG pCO2 39.0 mm Hg 08/02/20 11:25 ABG pO2 101.1 mm Hg (80.0-90.0) H 08/02/20 11:25 ABG HCO3 20.8 mmol/L (20.0-26.0) 08/02/20 11:25 ABG O2 Saturation 97.5 % (95.0-99.0) 08/02/20 11:25 Calcium 8.0 mg/dL (8.4-10.2) L 08/01/20 04:43 Magnesium 2.70 mg/dL (1.7-2.3) H 07/28/20 04:30 Urine Creatinine 33.3 mg/dL (0.1-20.0) H 07/06/20 13:20 Urine Sodium 21 mmol/L 07/06/20 13:20 Urine Total Protein 196 mg/dL (5-11.8) H 06/06/20 04:00 Medications & Allergies - Medications Allergies/Adverse Reactions: Allergies No Known Allergies Allergy (Verified 01/21/20 12:28) Home Medications: Home Medications Medication Instructions Recorded Confirmed Last Taken Type AtorvaSTATin [Lipitor] 20 mg PO QHS 05/12/20 05/29/20 Unknown History lisinopriL [Zestril TAB] 40 mg PO QDAY 05/12/20 05/29/20 Unknown History metFORMIN [Glucophage] 850 mg PO BID 05/12/20 05/29/20 Unknown History Acetaminophen [Acetaminophen TAB] 650 mg PO Q4H PRN tablet 05/13/20 05/29/20 Unknown Rx Dicyclomine [Bentyl] 20 mg PO BID #20 tablet 05/13/20 05/29/20 Unknown Rx Famotidine [Pepcid] 20 mg PO BID #30 tablet 05/13/20 05/29/20 Unknown Rx carvediloL [Coreg] 6.25 mg PO BID #60 05/13/20 05/29/20 Unknown Rx Active Medications: Generic Name Dose Route Start Last Admin Trade Name Emeterioq PRN Reason Stop Dose Admin Acetaminophen 650 mg 06/09/20 10:57 06/29/20 21:18 Tylenol FEEDTUBE 650 mg Q6H PRN Administration Fever >101 Amlodipine Besylate 10 mg 06/02/20 11:00 08/02/20 09:19 Amlodipine PO 10 mg DAILY NELSON Administration Lipase/Protease/Amylase 1 each 05/29/20 13:39 07/07/20 10:36 Pancreazhoracio Lawson 10,500 Unit FEEDTUBE 1 each PRN PRN Administration For Clogged Feeding Tube Epoetin Javon 10,000 unit 07/29/20 11:29 Procrit IV SCOTTY PRN hemodialysis Glycopyrrolate 2 mg 06/09/20 14:00 08/02/20 09:19 Glycopyrrolate PO 2 mg TID NELSON Administration Heparin Sodium (Porcine) 5,000 unit 06/30/20 14:00 08/02/20 06:56 Heparin SUB-Q 5,000 unit Q8HR NELSON Administration Heparin Sodium (Porcine) 5,000 unit 07/29/20 11:29 Heparin IV SCOTTY PRN hemodialysis Hydralazine HCl 100 mg 07/14/20 14:00 08/02/20 09:21 Apresoline PO 100 mg TID NELSON Administration Hydralazine HCl 10 mg 08/01/20 11:36 Apresoline IV Q4HR PRN Blood Pressure Hydrophilic Ointment 1 applic 05/28/20 13:49 Vaseline Lip Therapy TP Q2HR PRN Dry Lips Norepinephrine 4 mg in 250 mls @ 7.5 mls/hr 07/23/20 20:00 07/24/20 07:15 Levophed Drip 4 Mg/Ns 250 Ml IV 0 mcg/min TITR NELSON 0 mls/hr Titration Protocol 2 MCG/MIN Dopamine HCl/Dextrose 800 mg in 250 mls @ 4.613 mls/hr 07/24/20 11:30 08/02/20 12:30 Intropin Drip 800 Mg/D5w 250 Ml IV 4 mcg/kg/min TITR NELSON 9.225 mls/hr Titration Protocol 2 MCG/KG/MIN Sodium Chloride 100 mls @ 999 mls/hr 07/29/20 11:29 Nacl 0.9% IV SCOTTY PRN Hypotension Insulin Glargine 10 units 06/08/20 22:00 08/02/20 00:15 Lantus SUB-Q 10 units QHS NELSON Administration Insulin Human Lispro 0 unit 05/29/20 18:00 08/02/20 06:55 Humalog SUB-Q 3 unit Q6H NELSON Administration Protocol Labetalol HCl 20 mg 06/03/20 09:00 07/31/20 12:14 Labetalol IV 20 mg Q4H PRN Administration HYPERTENSION Lansoprazole 30 mg 06/05/20 22:00 08/02/20 09:19 Prevacid Solutab FEEDTUBE 30 mg BID NELSON Administration Levetiracetam 1,000 mg 07/21/20 22:00 08/02/20 09:20 Keppra PO 1,000 mg BID NELSON Administration Minoxidil 5 mg 07/21/20 10:00 08/02/20 12:11 Loniten PO 5 mg BID NELSON Administration Multi-Ingred Cream/Lotion/Oil/Oint 1 applic 05/28/20 13:49 Artificial Tears Ophth Oint OU Q4HR PRN Dry Eye(s) Ondansetron HCl 4 mg 06/02/20 09:00 06/09/20 16:48 Zofran IV 4 mg Q8H PRN Administration Nausea And Vomiting Phenytoin 225 mg 07/29/20 22:00 08/02/20 09:20 Dilantin FEEDTUBE 225 mg BID NELSON Administration Senna 17.6 mg 06/03/20 10:00 08/02/20 09:20 Senokot FEEDTUBE 17.6 mg BID NELSON Administration Simple Syrup 15 ml 05/29/20 13:39 Simple Syrup FEEDTUBE PRN PRN Hypoglycemia Simple Syrup 30 ml 05/29/20 13:39 Simple Syrup FEEDTUBE PRN PRN Hypoglycemia Sodium Bicarbonate 325 mg 05/29/20 13:39 07/07/20 10:36 Sodium Bicarbonate FEEDTUBE 325 mg PRN PRN Administration For Clogged Feeding Tube Sodium Chloride 10 ml 05/28/20 22:00 08/02/20 09:21 Sodium Chloride Flush Syringe 10 Ml IV 10 ml BID NELSON Administration Sodium Chloride 10 ml 05/28/20 19:08 06/16/20 17:50 Sodium Chloride Flush Syringe 10 Ml IV 10 ml PRN PRN Administration LINE FLUSH
--- NOTE | 2020-08-02 17:51 | Operative Report ---
Operative Report Operative Report: Date of Procedure: 08/02/2020 Pre-operative Diagnosis: Acute Renal Insufficiency Secondary to COVID-19 Infect ion Post-operative Diagnosis: Same Procedure(s): 1. Ultrasound-Guided Access Right Common Femoral Vein 2. Placement of 30 Cm Tri-Alysis Vas-Cath Surgeon: Abdi Kirby M.D. Aquaculture Farm Manager: None Anesthesia: 2% Lidocaine EBL: Minimal Counts: Correct Complications: None Condition: Stable Findings: All ports easily aspirated and flushed. Specimen: None Indication: The patient is a 64-year-old female with a history of COVID-19 infection who was in need of a Vas-Cath for dialysis after developing acute renal insufficiency with oliguria that has not responded to diuresis. Her family has been given the risk, benefits, and alternative procedures and consented to the procedure. Description of Procedure: The procedure was performed in the intensive care unit at the patient's bedside. After informed consent was obtained a timeout was performed at the bedside and ultrasound was used to identify the patient's right common femoral vein and confirm patency. Once patency was confirmed the right groin was prepped and draped in normal sterile fashion. The overlying skin and soft tissue was then anesthetized with lidocaine and an 11 blade was used to make a small stab incision. An 18-gauge access needle was used with ultrasound guidance into the right femoral vein and a 0.035 J-wire was advanced to the vein. The needle was removed and the tract was serially dilated. A 30 cm Tri-Alysis Vas-Cath was then inserted by Seldinger technique. All ports easily aspirated and flushed and then were primed with the appropriate amount heparin. The catheter was secured in position with a 3-0 silk suture and then dressed with a sterile dressing. The patient tolerated the procedure well and remained in the intensive care unit in critical but stable condition.
--- NOTE | 2020-08-02 20:45 | XRay Report ---
ABDOMEN SUPINE INDICATION / CLINICAL INFORMATION: MAIN. COMPARISON: None available. FINDINGS: Nasogastric tube projected over the distal stomach. Moderate bowel distention, involving both colon and small bowel. This pattern is most suggestive of m ild ileus. Signer Name: Kee Llanes MD Signed: 08/02/2020 8:40 PM Workstation Name: [id number]
[2020-08-02] MEDS ORDERED: SODIUM CHLORIDE 0.9% P/F 10 ML VIAL ONE (21:29)
[2020-08-02] MEDS ORDERED: HEPARIN 10,000 UNIT/1 ML VIAL ONE (21:29)
[2020-08-02] MEDS: EPOETIN ALFA 10,000 UNIT/1 ML INJ IV PRN (22:45)
[2020-08-03] MEDS: PHENYTOIN 100 MG/4 ML ORAL.LIQD FEEDTUBE SCH (00:20)
[2020-08-03] MEDS: LANSOPRAZOLE 30 MG SOLUTAB FEEDTUBE SCH (00:20)
[2020-08-03] MEDS: GLYCOPYRROLATE 2 MG TAB PO SCH ×4 (00:20→19:40)
[2020-08-03] MEDS: hydrALAZINE 100 MG TAB PO SCH ×4 (00:20→19:40)
[2020-08-03] MEDS: MINOXIDIL 2.5 MG TAB PO SCH ×3 (00:20→21:41)
[2020-08-03] MEDS: levETIRAcetam 500 MG/5 ML ORAL LIQD PO SCH (00:20)
[2020-08-03] MEDS: SENNOSIDES ORAL LIQD 8.8 MG/5 ML ORAL LIQD FEEDTUBE SCH ×3 (00:20→21:41)
[2020-08-03] MEDS: INSULIN GLARGINE 100 UNITS/ML SUB-Q SCH ×2 (00:20→21:41)
[2020-08-03] MEDS: INSULIN LISPRO 100 UNIT/ML VIAL 3 mL SUB-Q SCH ×4 (00:21→18:05)
[2020-08-03] MEDS: HEPARIN 5,000 UNIT/1 ML VIAL SUB-Q SCH ×3 (05:55→21:25)
[2020-08-03 06:01] LABS: Hematocrit 21.5 % (30.3-42.9); Mean Corpuscular HGB Conc 33 % (30-34); Mean Corpuscular Volume 89 fl (79-97); Platelet Count 434 K/mm3 (140-440); Red Blood Count 2.42 M/mm3 (3.65-5.03); Red Cell Distribution Width 18.1 % (13.2-15.2)
[2020-08-03] MEDS: DOPamine/D5W 800 MG/250 ML 800 MG/250 ML BAG IV SCH (06:04)
[2020-08-03 06:23] LABS: Calcium 8.2 mg/dL (8.4-10.2)
--- NOTE | 2020-08-03 08:45 | Progress Note ---
Subjective Date of service: 08/03/20 Principal diagnosis: Ac hypoxemic resp failure; COVID-19; pneumonia; CHF; Pulm HTN; OHS; DM II Interval history: 64 YO Female with a medical history of HTN, Diastolic CHF, Pulmonary HTN, DM, Obesity Hypoventilation Syndrome presents to ED for evaluation of shortness of breath. As per staff, the EMS was notified for difficulty breathing. Upon arrival to the patient's home the patient was found to be in distress and was subsequently transported to [facility] for further evaluation and care. In route to [facility] the patient developed cardiac arrest and was treated in accordance with ACLS protocol with return of ROSC. Patient was seen and evaluated in the emergency department and was intubated and placed on ventilatory support. Patient admitted to ICU. Critical care team consulted in ED. She was found to have COVID-19 infection and was started on steroids and remdesivir. ID was consulted. Cardiology was consulted for her systolic heart failure and cardiac arrest. Patient completed treatment for COVID-19, then develop superimposed bacterial pneumonia with Klebsiella. She is now extubated, 06/12/2020 but remains confused and requiring high flow O2 and intermittent BiPAP. Patient had another cardiac arrest reintubated 06/26/2020, currently in ICU vent dependent, unable to do trach and PEG due to persistent COVID-19 positive state, as well as anoxic brain injury, unable to get MRI , neurology following. Assessment and plan: 05/28/2020 COVID-19 test positive 06/29/2020 COVID-19 test positive 07/14/2020 COVID-19 test positive --Acute hypoxemic respiratory failure; vent dependent intubated on admission, extubated on 06/12/20 then placed on high flow o2 patient developed another respiratory arrest on 06/26 - reintubated Patient not tolerating weaning parameters CC following, Surgery evaluated the patient for trach and PEG COVID-19 test positive x3, trach and PEG pending -- Hypertension; well controlled Continue amlodipine, clonidine and hydralazine and minoxidil, closely monitor blood pressures PRN labetalol --s/p cardiopulmonary arrest on admission, 06/26 and 07/01, Bradycardia Patient is on dopamine and epinephrine for bradycardia beta-hugh discontinued Heart rate is in the 60s to 70s --Anoxic brain injury, neurology consulted, neuro requested MRI brain, EEG MRI brain could not be done due to body habitus, --Seizures seizure precautions; continue Keppra, and Dilantin EEG showed epileptiform discharges per review of neurology note --Rectal bleeding; resolved --Acute blood loss anemia; total 3 units PRBC transfused Hemoglobin today was 7.0 Hopefully with hemodialysis hemoglobin should go up If not transfuse 1 unit of PRBC tomorrow monitor H&H, GI following, no plans of endoscopy --Severe sepsis; completed antibiotics per ID persistently positive for COVID-19 and Klebsiella pneumoniae --COVID-19 b/l PNA Completed remdesivir on 06/02 Completed dexamethasone - Last dose 06/07 COVID 19 test positive x 3 during this admission --Superficial left cephalic vein DVT/elevated D-dimers[COVID 19] Patient initially started on heparin drip from 05/29/20 D-dimers improved [phone] treated with Eliquis 5 mg twice a day for 1 week[per ID] stop date 06/26/2020 -- Acute toxic metabolic encephalopathy, POA likely from sepsis and s/p cardiac arrest with possible anoxic injury -- Acute renal failure: Worsening BUN/creatinine 123/3.4 > 105/3.1 avoid nephrotoxins, Nephrology note reviewed Status post right femoral vascular catheter placement for hemodialysis today Discussed with Dr. Koehler --Klebsiella pneumonia: ID evaluated completed second round of 5 days of cefepime on 07/04/2020 --Acute on chronic systolic heart failure Cardiology following. Ef 45% --Transaminitis. Etiology likely from COVID-19. cont to monitor --Hyperkalemia; improved --Hyponatremia Serum sodium up to 130 today Monitor electrolytes --Shock; resolved -- DVT prophylaxis Eliquis, SCD to bilateral lower extremities while in bed -- Advance care planning Patient is critically ill with multiple medical problems Poor prognosis, family updated and patient is full code per family request 07/11/2020. Patient currently on mechanical ventilation AC/PRVC with rate of 12, tidal volume 450, FiO2 30% and PEEP of 6 07/12/2020. Patient placed on CPAP with pressure support of 10 and tolerating well. Continue PSB trials as tolerated. 07/13/2020. Patient currently with AC mode rate 12, tidal volume 450, FiO2 30% and PEEP of 6. Surgery has been consulted for trach and PEG placement. Recall nephrology for renal insufficiency. 07/14/20; surgery evaluated for trach and PEG , pending call with test which is is positive today COVID-19 test positive x3 since admission 07/16; trach and PEG pending neuro evaluation 07/17; vent dependent, trach PEG pending neuro evaluation, pending MRI EEG [facility][already ordered] 07/18; unable to do MRI, due to body habitus, morbid obesity, radiology consult Patient critically ill very poor prognosis 07/19; remains intubated on vent, clinically no change 07/20; unable to wean, needs trach and PEG, need MRI , unable to do due to body habitus 07/21; clinically no change, remains intubated on ventilatory support 07/22; I recommend family meeting, to discuss the goals of treatment, discussed with case management 07/23; patient's blood pressures in the lower range, will hold antihypertensives, fluid bolus, if no improvement Levophed per protocol 07/24: Patient remains critically ill, unable to obtain MRI at this facility and unstable for transfer, Will reconsult Nephrology as creatinine now worse, with worsening Hypotension and Hyperkalemia- Overnight the patient required pressors Secondary to Hypotension, Will place PICC line. Will give kayxalate, continue to hold all BP meds. Hyponatermia improving. 07/24; patient remains to critically ill, nephrology consult appreciated, creatinine is worsening. Hypotension resolved with. Still patient is hypernatremic 07/26; patient is hypertensive and her blood pressure medications were resumed and as needed medications also started. Patient is being followed by nephrology for hyponatremia and AVANI. Patient has anemia. We will check labs in the morning. 07/27; patient is still intubated and on mechanical ventilation. Followed by pulmonary critical care. Nephrology is considering to dialyze the patient after discussing with the family. 07/28; patient is intubated and on mechanical ventilation, patient is nonresponsive without pressors. Creatinine is trending up and nephrology is considering to dialysis. I called her son Toño at [phone] and discussed about the prognosis of the patient and I gave the option of hospice care/withdraw care and he said he is going to talk to his sister and will get back to me. 07/29/2020;patient is intubated and on mechanical ventilation, patient is nonresponsive without pressors. Creatinine is trending up and nephrology is considering to dialysis. I called her son Toño on 07/28 at [phone] and discussed about the prognosis of the patient and I gave the option of hospice care/withdraw care and he said he is going to talk to his sister and will get back to me. Nephrology discussed with the son this morning and the son said he want a ggressive management and she is going to be started on dialysis. 07/30; patient's son wants hospice. Declined dialysis. 07/31; plan was to send the patient to hospice but her son does not want to sign AND. Family declined dialysis. Going to talk to the son. 08/01; plans to send the patient to hospice. Patient does not want to sign AND. We called him back but he did not answer. 08/02 intubated, unresponsive, all interdisciplinary notes reviewed, apparently patient's family opted for dialysis, all interdisciplinary notes reviewed 08/03 remains intubated, unresponsive, status post right femoral vein vascular catheter placement, scheduled for hemodialysis today, lab results reviewed History Interval history: Patient was seen and evaluated this morning Patient is intubated and on mechanical ventilation Not responding Hospitalist Physical - Physical exam Narrative exam: Intubated and on mechanical ventilation On 30% FiO2 The patient is morbidly obese. Vital signs as documented. Head exam is unremarkable. No scleral icterus . Neck : No JVD Lungs are clear to auscultation. Heart: Regular rate and rhythm Abdomen: Benign Extremities : No leg edema ACQUISITIONS ANALYST: Intubated. Unresponsive Objective - Constitutional Vitals: Vital Signs - 12hr 08/02/20 08/02/20 08/02/20 20:39 20:41 20:43 Temperature Pulse Rate 52 L 51 L 50 L Pulse Rate [ From Monitor] Respiratory 15 16 18 Rate Blood Pressure 112/52 112/52 112/52 O2 Sat by Pulse 98 98 99 Oximetry O2 Sat by Pulse Oximetry [ Anterior Bilateral Throughout] 08/02/20 08/02/20 08/02/20 20:45 20:46 20:47 Temperature Pulse Rate 47 L 47 L 47 L Pulse Rate [ From Monitor] Respiratory 20 19 0 L Rate Blood Pressure 111/31 111/31 111/31 O2 Sat by Pulse 98 98 99 Oximetry O2 Sat by Pulse Oximetry [ Anterior Bilateral Throughout] 08/02/20 08/02/20 08/02/20 20:49 20:51 20:53 Temperature Pulse Rate 46 L 45 L 44 L Pulse Rate [ From Monitor] Respiratory 0 L 17 20 Rate Blood Pressure 111/31 111/31 111/31 O2 Sat by Pulse 99 99 99 Oximetry O2 Sat by Pulse Oximetry [ Anterior Bilateral Throughout] 08/02/20 08/02/20 08/02/20 20:55 20:57 20:59 Temperature Pulse Rate 44 L 45 L 46 L Pulse Rate [ From Monitor] Respiratory 22 22 18 Rate Blood Pressure 111/31 111/31 111/31 O2 Sat by Pulse 98 98 97 Oximetry O2 Sat by Pulse Oximetry [ Anterior Bilateral Throughout] 08/02/20 08/02/20 08/02/20 21:00 21:01 21:03 Temperature Pulse Rate 45 L 46 L 45 L Pulse Rate [ From Monitor] Respiratory 0 L 15 Rate Blood Pressure 99/28 99/28 99/28 O2 Sat by Pulse 97 96 Oximetry O2 Sat by Pulse Oximetry [ Anterior Bilateral Throughout] 08/02/20 08/02/20 08/02/20 21:05 21:07 21:09 Temperature Pulse Rate 48 L 51 L 56 L Pulse Rate [ From Monitor] Respiratory 0 L 0 L 0 L Rate Blood Pressure 127/47 127/47 127/47 O2 Sat by Pulse 96 95 96 Oximetry O2 Sat by Pulse Oximetry [ Anterior Bilateral Throughout] 08/02/20 08/02/20 08/02/20 21:11 21:13 21:15 Temperature Pulse Rate 62 64 63 Pulse Rate [ From Monitor] Respiratory 13 18 Rate Blood Pressure 127/47 127/47 158/53 O2 Sat by Pulse 97 97 97 Oximetry O2 Sat by Pulse Oximetry [ Anterior Bilateral Throughout] 08/02/20 08/02/20 08/02/20 21:17 21:19 21:21 Temperature Pulse Rate 64 65 65 Pulse Rate [ From Monitor] Respiratory 16 18 18 Rate Blood Pressure 158/53 158/53 158/53 O2 Sat by Pulse 97 97 97 Oximetry O2 Sat by Pulse Oximetry [ Anterior Bilateral Throughout] 08/02/20 08/02/20 08/02/20 21:23 21:25 21:27 Temperature Pulse Rate 66 66 67 Pulse Rate [ From Monitor] Respiratory 18 16 18 Rate Blood Pressure 158/53 158/53 158/53 O2 Sat by Pulse 96 96 97 Oximetry O2 Sat by Pulse Oximetry [ Anterior Bilateral Throughout] 08/02/20 08/02/20 08/02/20 21:29 21:30 21:31 Temperature Pulse Rate 64 67 68 Pulse Rate [ From Monitor] Respiratory 17 16 Rate Blood Pressure 158/53 112/52 178/59 O2 Sat by Pulse 96 96 Oximetry O2 Sat by Pulse Oximetry [ Anterior Bilateral Throughout] 08/02/20 08/02/20 08/02/20 21:33 21:35 21:37 Temperature Pulse Rate 65 67 67 Pulse Rate [ From Monitor] Respiratory 19 19 19 Rate Blood Pressure 178/59 178/59 178/59 O2 Sat by Pulse 97 97 96 Oximetry O2 Sat by Pulse Oximetry [ Anterior Bilateral Throughout] 08/02/20 08/02/20 08/02/20 21:39 21:41 21:43 Temperature Pulse Rate 81 79 67 Pulse Rate [ From Monitor] Respiratory 19 19 17 Rate Blood Pressure 178/59 178/59 178/59 O2 Sat by Pulse 97 97 97 Oximetry O2 Sat by Pulse Oximetry [ Anterior Bilateral Throughout] 08/02/20 08/02/20 08/02/20 21:45 21:47 21:49 Temperature Pulse Rate 47 L 68 68 Pulse Rate [ From Monitor] Respiratory 17 18 14 Rate Blood Pressure 111/31 183/59 183/59 O2 Sat by Pulse 98 97 97 Oximetry O2 Sat by Pulse Oximetry [ Anterior Bilateral Throughout] 08/02/20 08/02/20 08/02/20 21:51 21:53 21:55 Temperature Pulse Rate 68 79 78 Pulse Rate [ From Monitor] Respiratory 18 18 18 Rate Blood Pressure 183/59 183/59 183/59 O2 Sat by Pulse 97 96 96 Oximetry O2 Sat by Pulse Oximetry [ Anterior Bilateral Throughout] 08/02/20 08/02/20 08/02/20 21:57 21:59 22:00 Temperature Pulse Rate 77 77 45 L Pulse Rate [ From Monitor] Respiratory 12 18 18 Rate Blood Pressure 183/59 183/59 99/28 O2 Sat by Pulse 96 97 98 Oximetry O2 Sat by Pulse Oximetry [ Anterior Bilateral Throughout] 08/02/20 08/02/20 08/02/20 22:01 22:03 22:05 Temperature Pulse Rate 67 67 68 Pulse Rate [ From Monitor] Respiratory 19 19 18 Rate Blood Pressure 172/64 172/64 172/64 O2 Sat by Pulse 97 98 98 Oximetry O2 Sat by Pulse Oximetry [ Anterior Bilateral Throughout] 08/02/20 08/02/20 08/02/20 22:07 22:09 22:11 Temperature Pulse Rate 83 82 78 Pulse Rate [ From Monitor] Respiratory 13 16 19 Rate Blood Pressure 172/64 172/64 172/64 O2 Sat by Pulse 97 96 97 Oximetry O2 Sat by Pulse Oximetry [ Anterior Bilateral Throughout] 08/02/20 08/02/20 08/02/20 22:13 22:15 22:17 Temperature Pulse Rate 78 63 77 Pulse Rate [ From Monitor] Respiratory 16 19 16 Rate Blood Pressure 172/64 158/53 145/55 O2 Sat by Pulse 97 97 97 Oximetry O2 Sat by Pulse Oximetry [ Anterior Bilateral Throughout] 08/02/20 08/02/20 08/02/20 22:19 22:21 22:27 Temperature Pulse Rate 76 77 78 Pulse Rate [ From Monitor] Respiratory 18 18 20 Rate Blood Pressure 145/55 145/55 145/55 O2 Sat by Pulse 96 97 97 Oximetry O2 Sat by Pulse Oximetry [ Anterior Bilateral Throughout] 08/02/20 08/02/20 08/02/20 22:29 22:30 22:31 Temperature Pulse Rate 78 78 78 Pulse Rate [ From Monitor] Respiratory 18 19 18 Rate Blood Pressure 145/55 148/48 148/48 O2 Sat by Pulse 98 97 97 Oximetry O2 Sat by Pulse Oximetry [ Anterior Bilateral Throughout] 08/02/20 08/02/20 08/02/20 22:33 22:35 22:37 Temperature Pulse Rate 78 78 79 Pulse Rate [ From Monitor] Respiratory 19 18 13 Rate Blood Pressure 148/48 148/48 148/48 O2 Sat by Pulse 97 97 96 Oximetry O2 Sat by Pulse Oximetry [ Anterior Bilateral Throughout] 08/02/20 08/02/20 08/02/20 22:39 22:41 22:43 Temperature Pulse Rate 79 79 79 Pulse Rate [ From Monitor] Respiratory 17 17 19 Rate Blood Pressure 148/48 148/48 148/48 O2 Sat by Pulse 97 97 98 Oximetry O2 Sat by Pulse Oximetry [ Anterior Bilateral Throughout] 08/02/20 08/02/20 08/02/20 22:45 22:47 22:49 Temperature Pulse Rate 77 79 77 Pulse Rate [ From Monitor] Respiratory 18 18 16 Rate Blood Pressure 147/51 147/51 147/51 O2 Sat by Pulse 97 97 97 Oximetry O2 Sat by Pulse Oximetry [ Anterior Bilateral Throughout] 08/02/20 08/02/20 08/02/20 22:51 22:52 22:53 Temperature Pulse Rate 79 78 79 Pulse Rate [ From Monitor] Respiratory 19 17 15 Rate Blood Pressure 147/51 169/64 169/64 O2 Sat by Pulse 98 97 97 Oximetry O2 Sat by Pulse Oximetry [ Anterior Bilateral Throughout] 08/02/20 08/02/20 08/02/20 22:55 22:57 22:59 Temperature Pulse Rate 78 79 78 Pulse Rate [ From Monitor] Respiratory 19 15 16 Rate Blood Pressure 169/64 169/64 169/64 O2 Sat by Pulse 97 97 97 Oximetry O2 Sat by Pulse Oximetry [ Anterior Bilateral Throughout] 08/02/20 08/02/20 08/02/20 23:00 23:01 23:03 Temperature 97.2 F L Pulse Rate 78 78 78 Pulse Rate [ From Monitor] Respiratory 12 19 18 Rate Blood Pressure 159/57 159/57 159/57 O2 Sat by Pulse 96 97 97 Oximetry O2 Sat by Pulse 97 Oximetry [ Anterior Bilateral Throughout] 08/02/20 08/02/20 08/02/20 23:05 23:07 23:09 Temperature Pulse Rate 77 78 78 Pulse Rate [ From Monitor] Respiratory 15 18 18 Rate Blood Pressure 159/57 159/57 159/57 O2 Sat by Pulse 97 97 97 Oximetry O2 Sat by Pulse Oximetry [ Anterior Bilateral Throughout] 08/02/20 08/02/20 08/02/20 23:11 23:13 23:15 Temperature Pulse Rate 78 79 79 Pulse Rate [ From Monitor] Respiratory 16 14 14 Rate Blood Pressure 159/57 159/57 161/66 O2 Sat by Pulse 97 98 97 Oximetry O2 Sat by Pulse Oximetry [ Anterior Bilateral Throughout] 08/02/20 08/02/20 08/02/20 23:17 23:19 23:20 Temperature 97.2 F L Pulse Rate 79 79 Pulse Rate [ From Monitor] Respiratory 14 12 Rate Blood Pressure 161/66 161/66 O2 Sat by Pulse 98 98 Oximetry O2 Sat by Pulse Oximetry [ Anterior Bilateral Throughout] 08/02/20 08/02/20 08/02/20 23:21 23:23 23:25 Temperature Pulse Rate 80 80 80 Pulse Rate [ From Monitor] Respiratory 9 L 16 17 Rate Blood Pressure 161/66 161/66 161/66 O2 Sat by Pulse 97 98 98 Oximetry O2 Sat by Pulse Oximetry [ Anterior Bilateral Throughout] 08/02/20 08/02/20 08/02/20 23:27 23:29 23:31 Temperature Pulse Rate 80 78 80 Pulse Rate [ From Monitor] Respiratory 17 16 15 Rate Blood Pressure 161/66 161/66 174/60 O2 Sat by Pulse 98 97 98 Oximetry O2 Sat by Pulse Oximetry [ Anterior Bilateral Throughout] 08/02/20 08/02/20 08/02/20 23:33 23:35 23:37 Temperature Pulse Rate 79 79 78 Pulse Rate [ From Monitor] Respiratory 16 14 15 Rate Blood Pressure 174/60 174/60 174/60 O2 Sat by Pulse 98 98 97 Oximetry O2 Sat by Pulse Oximetry [ Anterior Bilateral Throughout] 08/02/20 08/02/20 08/02/20 23:39 23:41 23:43 Temperature Pulse Rate 76 77 76 Pulse Rate [ From Monitor] Respiratory 15 14 16 Rate Blood Pressure 174/60 174/60 174/60 O2 Sat by Pulse 97 98 97 Oximetry O2 Sat by Pulse Oximetry [ Anterior Bilateral Throughout] 08/02/20 08/02/20 08/02/20 23:45 23:46 23:47 Temperature Pulse Rate 75 78 76 Pulse Rate [ From Monitor] Respiratory 18 17 Rate Blood Pressure 163/43 174/60 163/43 O2 Sat by Pulse 98 97 98 Oximetry O2 Sat by Pulse Oximetry [ Anterior Bilateral Throughout] 08/02/20 08/02/20 08/02/20 23:49 23:51 23:53 Temperature Pulse Rate 75 75 75 Pulse Rate [ From Monitor] Respiratory 16 14 13 Rate Blood Pressure 163/43 163/43 163/43 O2 Sat by Pulse 98 97 98 Oximetry O2 Sat by Pulse Oximetry [ Anterior Bilateral Throughout] 08/02/20 08/02/20 08/02/20 23:55 23:57 23:59 Temperature Pulse Rate 66 63 62 Pulse Rate [ From Monitor] Respiratory 19 20 21 Rate Blood Pressure 163/43 163/43 163/43 O2 Sat by Pulse 98 98 98 Oximetry O2 Sat by Pulse Oximetry [ Anterior Bilateral Throughout] 08/03/20 08/03/20 08/03/20 00:00 00:01 00:03 Temperature Pulse Rate 78 62 63 Pulse Rate [ 77 From Monitor] Respiratory 15 17 19 Rate Blood Pressure 134/41 134/41 O2 Sat by Pulse 97 99 98 Oximetry O2 Sat by Pulse Oximetry [ Anterior Bilateral Throughout] 08/03/20 08/03/20 08/03/20 00:05 00:07 00:09 Temperature Pulse Rate 63 62 63 Pulse Rate [ From Monitor] Respiratory 17 15 14 Rate Blood Pressure 134/41 134/41 134/41 O2 Sat by Pulse 98 98 97 Oximetry O2 Sat by Pulse Oximetry [ Anterior Bilateral Throughout] 08/03/20 08/03/20 08/03/20 00:11 00:13 00:15 Temperature Pulse Rate 79 78 78 Pulse Rate [ From Monitor] Respiratory 17 16 17 Rate Blood Pressure 134/41 134/41 138/51 O2 Sat by Pulse 97 97 97 Oximetry O2 Sat by Pulse Oximetry [ Anterior Bilateral Throughout] 08/03/20 08/03/20 08/03/20 00:17 00:19 00:21 Temperature Pulse Rate 78 75 77 Pulse Rate [ From Monitor] Respiratory 18 15 18 Rate Blood Pressure 138/51 138/51 138/51 O2 Sat by Pulse 98 98 97 Oximetry O2 Sat by Pulse Oximetry [ Anterior Bilateral Throughout] 08/03/20 08/03/20 08/03/20 00:23 00:25 00:27 Temperature Pulse Rate 77 76 75 Pulse Rate [ From Monitor] Respiratory 19 17 18 Rate Blood Pressure 138/51 138/51 138/51 O2 Sat by Pulse 98 98 98 Oximetry O2 Sat by Pulse Oximetry [ Anterior Bilateral Throughout] 08/03/20 08/03/20 08/03/20 00:29 00:30 00:31 Temperature Pulse Rate 74 76 74 Pulse Rate [ From Monitor] Respiratory 16 18 17 Rate Blood Pressure 138/51 145/44 145/44 O2 Sat by Pulse 97 97 97 Oximetry O2 Sat by Pulse Oximetry [ Anterior Bilateral Throughout] 08/03/20 08/03/20 08/03/20 00:33 00:35 00:37 Temperature Pulse Rate 75 76 75 Pulse Rate [ From Monitor] Respiratory 17 20 16 Rate Blood Pressure 145/44 145/44 145/44 O2 Sat by Pulse 97 97 98 Oximetry O2 Sat by Pulse Oximetry [ Anterior Bilateral Throughout] 08/03/20 08/03/20 08/03/20 00:39 00:41 00:43 Temperature Pulse Rate 76 74 75 Pulse Rate [ From Monitor] Respiratory 19 15 16 Rate Blood Pressure 145/44 145/44 145/44 O2 Sat by Pulse 97 97 97 Oximetry O2 Sat by Pulse Oximetry [ Anterior Bilateral Throughout] 08/03/20 08/03/20 08/03/20 00:45 00:47 00:49 Temperature Pulse Rate 75 75 74 Pulse Rate [ From Monitor] Respiratory 16 17 16 Rate Blood Pressure 153/54 153/54 153/54 O2 Sat by Pulse 97 98 97 Oximetry O2 Sat by Pulse Oximetry [ Anterior Bilateral Throughout] 08/03/20 08/03/20 08/03/20 00:51 00:53 00:55 Temperature Pulse Rate 75 75 74 Pulse Rate [ From Monitor] Respiratory 16 18 16 Rate Blood Pressure 153/54 153/54 153/54 O2 Sat by Pulse 97 98 97 Oximetry O2 Sat by Pulse Oximetry [ Anterior Bilateral Throughout] 08/03/20 08/03/20 08/03/20 00:57 00:59 01:00 Temperature Pulse Rate 75 74 75 Pulse Rate [ From Monitor] Respiratory 19 16 18 Rate Blood Pressure 153/54 153/54 154/52 O2 Sat by Pulse 97 98 98 Oximetry O2 Sat by Pulse Oximetry [ Anterior Bilateral Throughout] 08/03/20 08/03/20 08/03/20 01:01 01:03 01:05 Temperature Pulse Rate 76 74 75 Pulse Rate [ From Monitor] Respiratory 18 17 18 Rate Blood Pressure 154/52 154/52 154/52 O2 Sat by Pulse 98 97 98 Oximetry O2 Sat by Pulse Oximetry [ Anterior Bilateral Throughout] 08/03/20 08/03/20 08/03/20 01:07 01:09 01:11 Temperature Pulse Rate 75 74 74 Pulse Rate [ From Monitor] Respiratory 18 17 15 Rate Blood Pressure 154/52 154/52 154/52 O2 Sat by Pulse 98 98 97 Oximetry O2 Sat by Pulse Oximetry [ Anterior Bilateral Throughout] 08/03/20 08/03/20 08/03/20 01:13 01:15 01:17 Temperature Pulse Rate 75 74 75 Pulse Rate [ From Monitor] Respiratory 19 15 18 Rate Blood Pressure 154/52 145/56 145/56 O2 Sat by Pulse 98 98 98 Oximetry O2 Sat by Pulse Oximetry [ Anterior Bilateral Throughout] 08/03/20 08/03/20 08/03/20 01:19 01:21 01:23 Temperature Pulse Rate 74 74 75 Pulse Rate [ From Monitor] Respiratory 19 16 18 Rate Blood Pressure 145/56 145/56 145/56 O2 Sat by Pulse 98 97 98 Oximetry O2 Sat by Pulse Oximetry [ Anterior Bilateral Throughout] 08/03/20 08/03/20 08/03/20 01:25 01:27 01:29 Temperature Pulse Rate 74 75 75 Pulse Rate [ From Monitor] Respiratory 14 18 15 Rate Blood Pressure 145/56 145/56 145/56 O2 Sat by Pulse 97 98 98 Oximetry O2 Sat by Pulse Oximetry [ Anterior Bilateral Throughout] 08/03/20 08/03/20 08/03/20 01:30 01:31 01:33 Temperature Pulse Rate 75 74 75 Pulse Rate [ From Monitor] Respiratory 17 15 18 Rate Blood Pressure 154/58 154/58 154/58 O2 Sat by Pulse 98 97 98 Oximetry O2 Sat by Pulse Oximetry [ Anterior Bilateral Throughout] 08/03/20 08/03/20 08/03/20 01:35 01:37 01:39 Temperature Pulse Rate 73 75 74 Pulse Rate [ From Monitor] Respiratory 16 18 15 Rate Blood Pressure 154/58 154/58 154/58 O2 Sat by Pulse 97 98 97 Oximetry O2 Sat by Pulse Oximetry [ Anterior Bilateral Throughout] 08/03/20 08/03/20 08/03/20 01:41 01:43 01:45 Temperature Pulse Rate 75 73 75 Pulse Rate [ From Monitor] Respiratory 18 15 18 Rate Blood Pressure 154/58 154/58 147/58 O2 Sat by Pulse 98 97 98 Oximetry O2 Sat by Pulse Oximetry [ Anterior Bilateral Throughout] 08/03/20 08/03/20 08/03/20 01:47 01:49 01:50 Temperature Pulse Rate 74 75 74 Pulse Rate [ From Monitor] Respiratory 15 18 16 Rate Blood Pressure 147/58 147/58 147/58 O2 Sat by Pulse 97 98 97 Oximetry O2 Sat by Pulse Oximetry [ Anterior Bilateral Throughout] 08/03/20 08/03/20 08/03/20 01:51 01:53 01:55 Temperature Pulse Rate 75 75 74 Pulse Rate [ From Monitor] Respiratory 18 19 13 Rate Blood Pressure 147/58 147/58 147/58 O2 Sat by Pulse 98 98 97 Oximetry O2 Sat by Pulse Oximetry [ Anterior Bilateral Throughout] 08/03/20 08/03/20 08/03/20 01:57 01:59 02:00 Temperature Pulse Rate 74 74 74 Pulse Rate [ From Monitor] Respiratory 17 19 17 Rate Blood Pressure 147/58 147/58 148/55 O2 Sat by Pulse 97 98 97 Oximetry O2 Sat by Pulse Oximetry [ Anterior Bilateral Throughout] 08/03/20 08/03/20 08/03/20 02:01 02:03 02:05 Temperature Pulse Rate 73 75 74 Pulse Rate [ From Monitor] Respiratory 15 18 15 Rate Blood Pressure 148/55 148/55 148/55 O2 Sat by Pulse 97 98 97 Oximetry O2 Sat by Pulse Oximetry [ Anterior Bilateral Throughout] 08/03/20 08/03/20 08/03/20 02:07 02:09 02:11 Temperature Pulse Rate 74 74 75 Pulse Rate [ From Monitor] Respiratory 15 15 19 Rate Blood Pressure 148/55 148/55 148/55 O2 Sat by Pulse 97 98 98 Oximetry O2 Sat by Pulse Oximetry [ Anterior Bilateral Throughout] 08/03/20 08/03/20 08/03/20 02:13 02:15 03:17 Temperature Pulse Rate 73 74 62 Pulse Rate [ From Monitor] Respiratory 15 14 19 Rate Blood Pressure 147/58 146/50 143/56 O2 Sat by Pulse 97 98 98 Oximetry O2 Sat by Pulse Oximetry [ Anterior Bilateral Throughout] 08/03/20 08/03/20 08/03/20 03:19 03:21 03:23 Temperature Pulse Rate 61 62 62 Pulse Rate [ From Monitor] Respiratory 17 17 18 Rate Blood Pressure 143/56 143/56 143/56 O2 Sat by Pulse 98 98 98 Oximetry O2 Sat by Pulse Oximetry [ Anterior Bilateral Throughout] 08/03/20 08/03/20 08/03/20 03:25 03:27 03:29 Temperature 98.2 F Pulse Rate 62 64 78 Pulse Rate [ From Monitor] Respiratory 15 17 18 Rate Blood Pressure 143/56 143/56 143/56 O2 Sat by Pulse 98 98 97 Oximetry O2 Sat by Pulse Oximetry [ Anterior Bilateral Throughout] 08/03/20 08/03/20 08/03/20 03:30 03:31 03:33 Temperature Pulse Rate 78 77 77 Pulse Rate [ From Monitor] Respiratory 16 16 18 Rate Blood Pressure 154/65 154/65 154/65 O2 Sat by Pulse 97 98 98 Oximetry O2 Sat by Pulse Oximetry [ Anterior Bilateral Throughout] 08/03/20 08/03/20 08/03/20 03:35 03:36 03:37 Temperature Pulse Rate 76 75 76 Pulse Rate [ From Monitor] Respiratory 18 14 18 Rate Blood Pressure 154/65 148/55 154/65 O2 Sat by Pulse 98 98 98 Oximetry O2 Sat by Pulse Oximetry [ Anterior Bilateral Throughout] 08/03/20 08/03/20 08/03/20 03:39 03:41 03:43 Temperature Pulse Rate 74 74 74 Pulse Rate [ From Monitor] Respiratory 14 15 15 Rate Blood Pressure 154/65 154/65 154/65 O2 Sat by Pulse 97 97 97 Oximetry O2 Sat by Pulse Oximetry [ Anterior Bilateral Throughout] 08/03/20 08/03/20 08/03/20 03:45 03:47 03:49 Temperature Pulse Rate 73 74 75 Pulse Rate [ From Monitor] Respiratory 16 16 17 Rate Blood Pressure 155/50 155/50 155/50 O2 Sat by Pulse 98 98 98 Oximetry O2 Sat by Pulse Oximetry [ Anterior Bilateral Throughout] 08/03/20 08/03/20 08/03/20 03:51 03:53 03:55 Temperature Pulse Rate 73 73 73 Pulse Rate [ From Monitor] Respiratory 14 14 15 Rate Blood Pressure 155/50 155/50 155/50 O2 Sat by Pulse 97 97 98 Oximetry O2 Sat by Pulse Oximetry [ Anterior Bilateral Throughout] 08/03/20 08/03/20 08/03/20 03:57 03:58 03:59 Temperature Pulse Rate 73 73 73 Pulse Rate [ From Monitor] Respiratory 17 16 18 Rate Blood Pressure 155/50 155/50 155/50 O2 Sat by Pulse 98 98 98 Oximetry O2 Sat by Pulse Oximetry [ Anterior Bilateral Throughout] 08/03/20 08/03/20 08/03/20 04:00 04:01 04:03 Temperature Pulse Rate 73 72 73 Pulse Rate [ 74 From Monitor] Respiratory 17 14 16 Rate Blood Pressure 140/58 140/58 140/58 O2 Sat by Pulse 99 98 98 Oximetry O2 Sat by Pulse Oximetry [ Anterior Bilateral Throughout] 08/03/20 08/03/20 08/03/20 04:05 04:06 04:07 Temperature Pulse Rate 72 74 72 Pulse Rate [ From Monitor] Respiratory 14 17 15 Rate Blood Pressure 140/58 140/58 140/58 O2 Sat by Pulse 98 98 98 Oximetry O2 Sat by Pulse Oximetry [ Anterior Bilateral Throughout] 08/03/20 08/03/20 08/03/20 04:09 04:11 04:13 Temperature Pulse Rate 73 73 74 Pulse Rate [ From Monitor] Respiratory 15 16 18 Rate Blood Pressure 140/58 140/58 140/58 O2 Sat by Pulse 98 98 98 Oximetry O2 Sat by Pulse Oximetry [ Anterior Bilateral Throughout] 08/03/20 08/03/20 08/03/20 04:15 04:17 04:19 Temperature Pulse Rate 73 73 73 Pulse Rate [ From Monitor] Respiratory 18 18 17 Rate Blood Pressure 153/55 153/55 153/55 O2 Sat by Pulse 98 98 98 Oximetry O2 Sat by Pulse Oximetry [ Anterior Bilateral Throughout] 08/03/20 08/03/20 08/03/20 04:21 04:23 04:25 Temperature Pulse Rate 61 61 60 Pulse Rate [ From Monitor] Respiratory 16 15 16 Rate Blood Pressure 153/55 153/55 153/55 O2 Sat by Pulse 99 98 98 Oximetry O2 Sat by Pulse Oximetry [ Anterior Bilateral Throughout] 08/03/20 08/03/20 08/03/20 04:27 04:29 04:31 Temperature Pulse Rate 61 60 62 Pulse Rate [ From Monitor] Respiratory 15 15 15 Rate Blood Pressure 153/55 153/55 143/53 O2 Sat by Pulse 99 98 99 Oximetry O2 Sat by Pulse Oximetry [ Anterior Bilateral Throughout] 08/03/20 08/03/20 08/03/20 04:33 04:34 04:35 Temperature Pulse Rate 63 62 63 Pulse Rate [ From Monitor] Respiratory 16 18 Rate Blood Pressure 143/53 143/53 143/53 O2 Sat by Pulse 98 99 99 Oximetry O2 Sat by Pulse Oximetry [ Anterior Bilateral Throughout] 08/03/20 08/03/20 08/03/20 04:37 04:39 04:41 Temperature Pulse Rate 79 78 75 Pulse Rate [ From Monitor] Respiratory 14 15 15 Rate Blood Pressure 143/53 143/53 143/53 O2 Sat by Pulse 100 98 98 Oximetry O2 Sat by Pulse Oximetry [ Anterior Bilateral Throughout] 08/03/20 08/03/20 08/03/20 04:43 04:45 04:59 Temperature Pulse Rate 75 74 74 Pulse Rate [ From Monitor] Respiratory 17 16 15 Rate Blood Pressure 143/53 149/65 153/55 O2 Sat by Pulse 98 99 98 Oximetry O2 Sat by Pulse Oximetry [ Anterior Bilateral Throughout] 08/03/20 08/03/20 08/03/20 05:00 05:01 05:03 Temperature Pulse Rate 73 74 73 Pulse Rate [ From Monitor] Respiratory 14 16 15 Rate Blood Pressure 148/51 148/51 148/51 O2 Sat by Pulse 98 98 98 Oximetry O2 Sat by Pulse Oximetry [ Anterior Bilateral Throughout] 08/03/20 08/03/20 08/03/20 05:05 05:07 05:09 Temperature Pulse Rate 75 74 74 Pulse Rate [ From Monitor] Respiratory 18 19 18 Rate Blood Pressure 148/51 148/51 148/51 O2 Sat by Pulse 98 98 98 Oximetry O2 Sat by Pulse Oximetry [ Anterior Bilateral Throughout] 08/03/20 08/03/20 08/03/20 05:11 05:13 05:15 Temperature Pulse Rate 73 75 75 Pulse Rate [ From Monitor] Respiratory 14 18 18 Rate Blood Pressure 148/51 148/51 152/60 O2 Sat by Pulse 97 98 98 Oximetry O2 Sat by Pulse Oximetry [ Anterior Bilateral Throughout] 08/03/20 08/03/20 08/03/20 05:17 05:19 05:21 Temperature Pulse Rate 74 74 74 Pulse Rate [ From Monitor] Respiratory 15 16 17 Rate Blood Pressure 152/60 152/60 152/60 O2 Sat by Pulse 98 98 97 Oximetry O2 Sat by Pulse Oximetry [ Anterior Bilateral Throughout] 08/03/20 08/03/20 08/03/20 05:23 05:25 05:27 Temperature Pulse Rate 73 74 74 Pulse Rate [ From Monitor] Respiratory 15 16 15 Rate Blood Pressure 152/60 152/60 152/60 O2 Sat by Pulse 98 98 98 Oximetry O2 Sat by Pulse Oximetry [ Anterior Bilateral Throughout] 08/03/20 08/03/20 08/03/20 05:29 05:30 05:31 Temperature Pulse Rate 75 74 75 Pulse Rate [ From Monitor] Respiratory 16 14 17 Rate Blood Pressure 152/60 145/60 145/60 O2 Sat by Pulse 98 98 98 Oximetry O2 Sat by Pulse Oximetry [ Anterior Bilateral Throughout] 08/03/20 08/03/20 08/03/20 05:33 05:35 05:37 Temperature Pulse Rate 75 75 73 Pulse Rate [ From Monitor] Respiratory 16 18 15 Rate Blood Pressure 145/60 145/60 145/60 O2 Sat by Pulse 98 98 98 Oximetry O2 Sat by Pulse Oximetry [ Anterior Bilateral Throughout] 08/03/20 08/03/20 08/03/20 05:39 05:41 05:43 Temperature Pulse Rate 74 74 74 Pulse Rate [ From Monitor] Respiratory 17 17 15 Rate Blood Pressure 145/60 145/60 145/60 O2 Sat by Pulse 98 98 98 Oximetry O2 Sat by Pulse Oximetry [ Anterior Bilateral Throughout] 08/03/20 08/03/20 08/03/20 05:45 05:47 05:49 Temperature Pulse Rate 62 62 60 Pulse Rate [ From Monitor] Respiratory 18 20 16 Rate Blood Pressure 140/46 140/46 140/46 O2 Sat by Pulse 99 98 99 Oximetry O2 Sat by Pulse Oximetry [ Anterior Bilateral Throughout] 08/03/20 08/03/20 08/03/20 05:51 05:53 05:55 Temperature Pulse Rate 61 61 61 Pulse Rate [ From Monitor] Respiratory 18 15 15 Rate Blood Pressure 140/46 140/46 140/46 O2 Sat by Pulse 99 98 98 Oximetry O2 Sat by Pulse Oximetry [ Anterior Bilateral Throughout] 08/03/20 08/03/20 08/03/20 05:57 05:59 06:00 Temperature Pulse Rate 63 61 62 Pulse Rate [ From Monitor] Respiratory 17 18 16 Rate Blood Pressure 140/46 140/46 130/55 O2 Sat by Pulse 98 98 98 Oximetry O2 Sat by Pulse Oximetry [ Anterior Bilateral Throughout] 08/03/20 08/03/20 08/03/20 06:01 06:03 06:05 Temperature Pulse Rate 68 78 76 Pulse Rate [ From Monitor] Respiratory 16 8 L 15 Rate Blood Pressure 130/55 130/55 130/55 O2 Sat by Pulse 98 98 97 Oximetry O2 Sat by Pulse Oximetry [ Anterior Bilateral Throughout] 08/03/20 08/03/20 08/03/20 06:07 06:09 06:11 Temperature Pulse Rate 74 73 73 Pulse Rate [ From Monitor] Respiratory 15 16 18 Rate Blood Pressure 130/55 130/55 130/55 O2 Sat by Pulse 97 98 98 Oximetry O2 Sat by Pulse Oximetry [ Anterior Bilateral Throughout] 08/03/20 08/03/20 08/03/20 06:13 06:15 06:17 Temperature Pulse Rate 72 71 70 Pulse Rate [ From Monitor] Respiratory 18 15 17 Rate Blood Pressure 130/55 126/26 126/26 O2 Sat by Pulse 98 98 99 Oximetry O2 Sat by Pulse Oximetry [ Anterior Bilateral Throughout] 08/03/20 08/03/20 08/03/20 06:19 06:21 06:23 Temperature Pulse Rate 70 70 68 Pulse Rate [ From Monitor] Respiratory 15 17 14 Rate Blood Pressure 126/26 126/26 126/26 O2 Sat by Pulse 98 98 98 Oximetry O2 Sat by Pulse Oximetry [ Anterior Bilateral Throughout] 08/03/20 08/03/20 08/03/20 06:25 06:27 06:29 Temperature Pulse Rate 69 67 68 Pulse Rate [ From Monitor] Respiratory 15 16 17 Rate Blood Pressure 126/26 126/26 126/26 O2 Sat by Pulse 99 99 99 Oximetry O2 Sat by Pulse Oximetry [ Anterior Bilateral Throughout] 08/03/20 06:31 Temperature Pulse Rate 67 Pulse Rate [ From Monitor] Respiratory 17 Rate Blood Pressure 118/37 O2 Sat by Pulse 99 Oximetry O2 Sat by Pulse Oximetry [ Anterior Bilateral Throughout] - Labs CBC & Chem 7: 08/03/20 04:38 08/03/20 04:38 Labs: Abnormal lab results 08/02/20 08/02/20 08/03/20 Range/Units 11:25 12:34 00:08 WBC (4.5-11.0) K/mm3 RBC (3.65-5.03) M/mm3 Hgb (10.1-14.3) gm/dl Hct (30.3-42.9) % RDW (13.2-15.2) % ABG pH 7.344 L (7.350-7.450) pH Units ABG pO2 101.1 H (80.0-90.0) mm Hg ABG Base Excess -4.5 L (-2.0-3.0) mmol/L ABG Hemoglobin 6.6 L (12.0-16.0) gm/dl Sodium (137-145) mmol/L Chloride (98-107) mmol/L Carbon Dioxide (22-30) mmol/L BUN (7-17) mg/dL Creatinine (0.6-1.2) mg/dL Glucose (65-100) mg/dL POC Glucose 196 H 141 H (70-105) mg/dL Lactic Acid (0.7-2.0) mmol/L Calcium (8.4-10.2) mg/dL 08/03/20 08/03/20 08/03/20 Range/Units 04:38 04:38 04:38 WBC 14.3 H (4.5-11.0) K/mm3 RBC 2.42 L (3.65-5.03) M/mm3 Hgb 7.0 L (10.1-14.3) gm/dl Hct 21.5 L (30.3-42.9) % RDW 18.1 H (13.2-15.2) % ABG pH (7.350-7.450) pH Units ABG pO2 (80.0-90.0) mm Hg ABG Base Excess (-2.0-3.0) mmol/L ABG Hemoglobin (12.0-16.0) gm/dl Sodium 130 L (137-145) mmol/L Chloride 90.1 L (98-107) mmol/L Carbon Dioxide 20 L (22-30) mmol/L BUN 105 H (7-17) mg/dL Creatinine 3.1 H (0.6-1.2) mg/dL Glucose 115 H (65-100) mg/dL POC Glucose (70-105) mg/dL Lactic Acid 0.40 L (0.7-2.0) mmol/L Calcium 8.2 L (8.4-10.2) mg/dL 08/03/20 Range/Units 05:33 WBC (4.5-11.0) K/mm3 RBC (3.65-5.03) M/mm3 Hgb (10.1-14.3) gm/dl Hct (30.3-42.9) % RDW (13.2-15.2) % ABG pH (7.350-7.450) pH Units ABG pO2 (80.0-90.0) mm Hg ABG Base Excess (-2.0-3.0) mmol/L ABG Hemoglobin (12.0-16.0) gm/dl Sodium (137-145) mmol/L Chloride (98-107) mmol/L Carbon Dioxide (22-30) mmol/L BUN (7-17) mg/dL Creatinine (0.6-1.2) mg/dL Glucose (65-100) mg/dL POC Glucose 117 H (70-105) mg/dL Lactic Acid (0.7-2.0) mmol/L Calcium (8.4-10.2) mg/dL HEART Score - HEART Score Troponin: Troponin T 0.067 ng/mL (0.00-0.029) H 07/01/20 06:01
[2020-08-03] MEDS ORDERED: SODIUM CHLORIDE 0.9% 100 ML IV PRN ×2 (09:23→09:35)
[2020-08-03] MEDS: levETIRAcetam 1,000 MG in DEXTROSE 5% IN WATER 100 ML IV SCH ×2 (09:45→21:24)
[2020-08-03] MEDS: PHENYTOIN IV SCH ×3 (09:45→21:25)
[2020-08-03] MEDS: SODIUM CHLORIDE 0.9% IV SCH ×3 (09:45→21:25)
[2020-08-03] MEDS: PANTOPRAZOLE 40 MG INJ IV SCH (09:46)
--- NOTE | 2020-08-03 10:42 | Progress Note ---
Assessment and Plan Acute hypoxemic respiratory failure on MVS Coronavirus-19 infection. Bilateral pulmonary infiltrates, bilateral pneumonia plus likely element of Pulmonary edema. Bilateral pulmonary edema. Bilateral pleural effusions. History of congestive heart failure. Morbid obesity. History of pulmonary hypertension. History of hypertension. Diabetes. Obesity hypoventilation syndrome. Elevated serum inflammatory markers to include D-dimers and LDH levels. Hyperkalemia at presentation. Metabolic acidosis. Oropharyngeal dysphagia. (AMS remains rate limiting factor to safe extubation; she will need a tracheo stomy) - NGT to LIS - get CT ABD & Pelvis - consider GI evaluation for fecal matter effluent - begin Levophed and wean off Dopamine - repeat CBC in am - continue HD/UF for toxin and volume clearance - AM CXR - continue care as below otherwise; - prn CXR's and ABG's at this point - repeat EEG next per neurology rec's - AED's per neurology (Keppra & Dilantin changed to IV dosing) - surgery evaluation ongoing for trach +/- PEG (await negative COVID PCR result) - continue Modafinil re: lethargy / somnolence - continue daytime PSV trials as tolerated - Daily SAT and SBT assessment as tolerated - continue to wean supplemental oxygen for target O2 sat's > 92% acutely - VAP bundle addressed - continue lung protective strategies - continue bronchodilators with pulmonary hygiene per RT - wean per pulmonary driven protocols otherwise - continue accuchecks resumed with glycemic control per SSI (While critically ill target blood glucose of 140-180 mg/dL; avoid hypoglycemia) - sedation prn for target RASS 0 to -1 - continue to avoid benzodiazepine's, reduce the possibility of delirium - AB's per ID rec's (following clinically of AB's at this time) - continue enteral nutrition at goal rate as tolerated - AED's per neurology - prn analgesia per CPOT score - Maintenance of sleep-wake cycle, avoid delirium - continue enteral nutritional support at goal rate as tolerated - G.I. & VTE prophylaxis with heparin & famotidine - PT/OT/ROM exercises - continue mobility protocols for pressure ulcer prophylaxis - Monitor hemodynamics closely - continue other care per attending / other consultants - discharge planning ongoing concurrently (LTAC evaluation is appropriate) .... Re-evaluate in am & prn; will continue aggressive care until clear family wants to decelerate CONDITION: CRITICAL PROGNOSIS: GUARDED CODE STATUS: FULL CODE The high probability of a clinically significant, sudden or life-threatening deterioration of the [respiratory, cardiovascular, GI & neurologic] system(s) required my full and direct attention, intervention and personal management. The aggregate critical care time was [32] minutes without overlap. Time includes spent on; [x] Data Review and interpretation [x] Patient assessment and monitoring of vital signs [x] Documentation [x] Medication orders and management Subjective Date of service: 08/03/20 Principal diagnosis: Ac hypoxemic resp failure; COVID-19; pneumonia; CHF; Pulm HTN; OHS; DM II Interval history: Patient is seen today for: Ac hypoxemic resp failure; Coronavirus-19 infection; pneumonia; Pulmonary edema; Bilateral pleural effusions; CHF; Morbid obesity; pulmonary hypertension; OHS; DM II Seen and examined at bedside; 24hour events reviewed; nursing and respiratory care staff consulted; no adverse overnight events reported to me; resting peacefully in bed; remains on MVS; AMS is persistent; tolerated initial dialysis session; remains on vasopressor support (dopamine at 4 shanae's/min); also some fecal matter noted in NGT overnight Objective Vital Signs - 12hr 08/02/20 08/02/20 08/02/20 22:43 22:45 22:47 Temperature Pulse Rate 79 77 79 Pulse Rate [ From Monitor] Respiratory 19 18 18 Rate Blood Pressure 148/48 147/51 147/51 O2 Sat by Pulse 98 97 97 Oximetry O2 Sat by Pulse Oximetry [ Anterior Bilateral Throughout] 08/02/20 08/02/20 08/02/20 22:49 22:51 22:52 Temperature Pulse Rate 77 79 78 Pulse Rate [ From Monitor] Respiratory 16 19 17 Rate Blood Pressure 147/51 147/51 169/64 O2 Sat by Pulse 97 98 97 Oximetry O2 Sat by Pulse Oximetry [ Anterior Bilateral Throughout] 08/02/20 08/02/20 08/02/20 22:53 22:55 22:57 Temperature Pulse Rate 79 78 79 Pulse Rate [ From Monitor] Respiratory 15 19 15 Rate Blood Pressure 169/64 169/64 169/64 O2 Sat by Pulse 97 97 97 Oximetry O2 Sat by Pulse Oximetry [ Anterior Bilateral Throughout] 08/02/20 08/02/20 08/02/20 22:59 23:00 23:01 Temperature 97.2 F L Pulse Rate 78 78 78 Pulse Rate [ From Monitor] Respiratory 16 12 19 Rate Blood Pressure 169/64 159/57 159/57 O2 Sat by Pulse 97 96 97 Oximetry O2 Sat by Pulse 97 Oximetry [ Anterior Bilateral Throughout] 08/02/20 08/02/20 08/02/20 23:03 23:05 23:07 Temperature Pulse Rate 78 77 78 Pulse Rate [ From Monitor] Respiratory 18 15 18 Rate Blood Pressure 159/57 159/57 159/57 O2 Sat by Pulse 97 97 97 Oximetry O2 Sat by Pulse Oximetry [ Anterior Bilateral Throughout] 08/02/20 08/02/20 08/02/20 23:09 23:11 23:13 Temperature Pulse Rate 78 78 79 Pulse Rate [ From Monitor] Respiratory 18 16 14 Rate Blood Pressure 159/57 159/57 159/57 O2 Sat by Pulse 97 97 98 Oximetry O2 Sat by Pulse Oximetry [ Anterior Bilateral Throughout] 08/02/20 08/02/20 08/02/20 23:15 23:17 23:19 Temperature Pulse Rate 79 79 79 Pulse Rate [ From Monitor] Respiratory 14 14 12 Rate Blood Pressure 161/66 161/66 161/66 O2 Sat by Pulse 97 98 98 Oximetry O2 Sat by Pulse Oximetry [ Anterior Bilateral Throughout] 08/02/20 08/02/20 08/02/20 23:20 23:21 23:23 Temperature 97.2 F L Pulse Rate 80 80 Pulse Rate [ From Monitor] Respiratory 9 L 16 Rate Blood Pressure 161/66 161/66 O2 Sat by Pulse 97 98 Oximetry O2 Sat by Pulse Oximetry [ Anterior Bilateral Throughout] 08/02/20 08/02/20 08/02/20 23:25 23:27 23:29 Temperature Pulse Rate 80 80 78 Pulse Rate [ From Monitor] Respiratory 17 17 16 Rate Blood Pressure 161/66 161/66 161/66 O2 Sat by Pulse 98 98 97 Oximetry O2 Sat by Pulse Oximetry [ Anterior Bilateral Throughout] 08/02/20 08/02/20 08/02/20 23:31 23:33 23:35 Temperature Pulse Rate 80 79 79 Pulse Rate [ From Monitor] Respiratory 15 16 14 Rate Blood Pressure 174/60 174/60 174/60 O2 Sat by Pulse 98 98 98 Oximetry O2 Sat by Pulse Oximetry [ Anterior Bilateral Throughout] 08/02/20 08/02/20 08/02/20 23:37 23:39 23:41 Temperature Pulse Rate 78 76 77 Pulse Rate [ From Monitor] Respiratory 15 15 14 Rate Blood Pressure 174/60 174/60 174/60 O2 Sat by Pulse 97 97 98 Oximetry O2 Sat by Pulse Oximetry [ Anterior Bilateral Throughout] 08/02/20 08/02/20 08/02/20 23:43 23:45 23:46 Temperature Pulse Rate 76 75 78 Pulse Rate [ From Monitor] Respiratory 16 18 Rate Blood Pressure 174/60 163/43 174/60 O2 Sat by Pulse 97 98 97 Oximetry O2 Sat by Pulse Oximetry [ Anterior Bilateral Throughout] 08/02/20 08/02/20 08/02/20 23:47 23:49 23:51 Temperature Pulse Rate 76 75 75 Pulse Rate [ From Monitor] Respiratory 17 16 14 Rate Blood Pressure 163/43 163/43 163/43 O2 Sat by Pulse 98 98 97 Oximetry O2 Sat by Pulse Oximetry [ Anterior Bilateral Throughout] 08/02/20 08/02/20 08/02/20 23:53 23:55 23:57 Temperature Pulse Rate 75 66 63 Pulse Rate [ From Monitor] Respiratory 13 19 20 Rate Blood Pressure 163/43 163/43 163/43 O2 Sat by Pulse 98 98 98 Oximetry O2 Sat by Pulse Oximetry [ Anterior Bilateral Throughout] 08/02/20 08/03/20 08/03/20 23:59 00:00 00:01 Temperature Pulse Rate 62 78 62 Pulse Rate [ 77 From Monitor] Respiratory 21 15 17 Rate Blood Pressure 163/43 134/41 O2 Sat by Pulse 98 97 99 Oximetry O2 Sat by Pulse Oximetry [ Anterior Bilateral Throughout] 08/03/20 08/03/20 08/03/20 00:03 00:05 00:07 Temperature Pulse Rate 63 63 62 Pulse Rate [ From Monitor] Respiratory 19 17 15 Rate Blood Pressure 134/41 134/41 134/41 O2 Sat by Pulse 98 98 98 Oximetry O2 Sat by Pulse Oximetry [ Anterior Bilateral Throughout] 08/03/20 08/03/20 08/03/20 00:09 00:11 00:13 Temperature Pulse Rate 63 79 78 Pulse Rate [ From Monitor] Respiratory 14 17 16 Rate Blood Pressure 134/41 134/41 134/41 O2 Sat by Pulse 97 97 97 Oximetry O2 Sat by Pulse Oximetry [ Anterior Bilateral Throughout] 08/03/20 08/03/20 08/03/20 00:15 00:17 00:19 Temperature Pulse Rate 78 78 75 Pulse Rate [ From Monitor] Respiratory 17 18 15 Rate Blood Pressure 138/51 138/51 138/51 O2 Sat by Pulse 97 98 98 Oximetry O2 Sat by Pulse Oximetry [ Anterior Bilateral Throughout] 08/03/20 08/03/20 08/03/20 00:21 00:23 00:25 Temperature Pulse Rate 77 77 76 Pulse Rate [ From Monitor] Respiratory 18 19 17 Rate Blood Pressure 138/51 138/51 138/51 O2 Sat by Pulse 97 98 98 Oximetry O2 Sat by Pulse Oximetry [ Anterior Bilateral Throughout] 08/03/20 08/03/20 08/03/20 00:27 00:29 00:30 Temperature Pulse Rate 75 74 76 Pulse Rate [ From Monitor] Respiratory 18 16 18 Rate Blood Pressure 138/51 138/51 145/44 O2 Sat by Pulse 98 97 97 Oximetry O2 Sat by Pulse Oximetry [ Anterior Bilateral Throughout] 08/03/20 08/03/20 08/03/20 00:31 00:33 00:35 Temperature Pulse Rate 74 75 76 Pulse Rate [ From Monitor] Respiratory 17 17 20 Rate Blood Pressure 145/44 145/44 145/44 O2 Sat by Pulse 97 97 97 Oximetry O2 Sat by Pulse Oximetry [ Anterior Bilateral Throughout] 08/03/20 08/03/20 08/03/20 00:37 00:39 00:41 Temperature Pulse Rate 75 76 74 Pulse Rate [ From Monitor] Respiratory 16 19 15 Rate Blood Pressure 145/44 145/44 145/44 O2 Sat by Pulse 98 97 97 Oximetry O2 Sat by Pulse Oximetry [ Anterior Bilateral Throughout] 08/03/20 08/03/20 08/03/20 00:43 00:45 00:47 Temperature Pulse Rate 75 75 75 Pulse Rate [ From Monitor] Respiratory 16 16 17 Rate Blood Pressure 145/44 153/54 153/54 O2 Sat by Pulse 97 97 98 Oximetry O2 Sat by Pulse Oximetry [ Anterior Bilateral Throughout] 08/03/20 08/03/20 08/03/20 00:49 00:51 00:53 Temperature Pulse Rate 74 75 75 Pulse Rate [ From Monitor] Respiratory 16 16 18 Rate Blood Pressure 153/54 153/54 153/54 O2 Sat by Pulse 97 97 98 Oximetry O2 Sat by Pulse Oximetry [ Anterior Bilateral Throughout] 08/03/20 08/03/20 08/03/20 00:55 00:57 00:59 Temperature Pulse Rate 74 75 74 Pulse Rate [ From Monitor] Respiratory 16 19 16 Rate Blood Pressure 153/54 153/54 153/54 O2 Sat by Pulse 97 97 98 Oximetry O2 Sat by Pulse Oximetry [ Anterior Bilateral Throughout] 08/03/20 08/03/20 08/03/20 01:00 01:01 01:03 Temperature Pulse Rate 75 76 74 Pulse Rate [ From Monitor] Respiratory 18 18 17 Rate Blood Pressure 154/52 154/52 154/52 O2 Sat by Pulse 98 98 97 Oximetry O2 Sat by Pulse Oximetry [ Anterior Bilateral Throughout] 08/03/20 08/03/20 08/03/20 01:05 01:07 01:09 Temperature Pulse Rate 75 75 74 Pulse Rate [ From Monitor] Respiratory 18 18 17 Rate Blood Pressure 154/52 154/52 154/52 O2 Sat by Pulse 98 98 98 Oximetry O2 Sat by Pulse Oximetry [ Anterior Bilateral Throughout] 08/03/20 08/03/20 08/03/20 01:11 01:13 01:15 Temperature Pulse Rate 74 75 74 Pulse Rate [ From Monitor] Respiratory 15 19 15 Rate Blood Pressure 154/52 154/52 145/56 O2 Sat by Pulse 97 98 98 Oximetry O2 Sat by Pulse Oximetry [ Anterior Bilateral Throughout] 08/03/20 08/03/20 08/03/20 01:17 01:19 01:21 Temperature Pulse Rate 75 74 74 Pulse Rate [ From Monitor] Respiratory 18 19 16 Rate Blood Pressure 145/56 145/56 145/56 O2 Sat by Pulse 98 98 97 Oximetry O2 Sat by Pulse Oximetry [ Anterior Bilateral Throughout] 08/03/20 08/03/20 08/03/20 01:23 01:25 01:27 Temperature Pulse Rate 75 74 75 Pulse Rate [ From Monitor] Respiratory 18 14 18 Rate Blood Pressure 145/56 145/56 145/56 O2 Sat by Pulse 98 97 98 Oximetry O2 Sat by Pulse Oximetry [ Anterior Bilateral Throughout] 08/03/20 08/03/20 08/03/20 01:29 01:30 01:31 Temperature Pulse Rate 75 75 74 Pulse Rate [ From Monitor] Respiratory 15 17 15 Rate Blood Pressure 145/56 154/58 154/58 O2 Sat by Pulse 98 98 97 Oximetry O2 Sat by Pulse Oximetry [ Anterior Bilateral Throughout] 08/03/20 08/03/20 08/03/20 01:33 01:35 01:37 Temperature Pulse Rate 75 73 75 Pulse Rate [ From Monitor] Respiratory 18 16 18 Rate Blood Pressure 154/58 154/58 154/58 O2 Sat by Pulse 98 97 98 Oximetry O2 Sat by Pulse Oximetry [ Anterior Bilateral Throughout] 08/03/20 08/03/20 08/03/20 01:39 01:41 01:43 Temperature Pulse Rate 74 75 73 Pulse Rate [ From Monitor] Respiratory 15 18 15 Rate Blood Pressure 154/58 154/58 154/58 O2 Sat by Pulse 97 98 97 Oximetry O2 Sat by Pulse Oximetry [ Anterior Bilateral Throughout] 08/03/20 08/03/20 08/03/20 01:45 01:47 01:49 Temperature Pulse Rate 75 74 75 Pulse Rate [ From Monitor] Respiratory 18 15 18 Rate Blood Pressure 147/58 147/58 147/58 O2 Sat by Pulse 98 97 98 Oximetry O2 Sat by Pulse Oximetry [ Anterior Bilateral Throughout] 08/03/20 08/03/20 08/03/20 01:50 01:51 01:53 Temperature Pulse Rate 74 75 75 Pulse Rate [ From Monitor] Respiratory 16 18 19 Rate Blood Pressure 147/58 147/58 147/58 O2 Sat by Pulse 97 98 98 Oximetry O2 Sat by Pulse Oximetry [ Anterior Bilateral Throughout] 08/03/20 08/03/20 08/03/20 01:55 01:57 01:59 Temperature Pulse Rate 74 74 74 Pulse Rate [ From Monitor] Respiratory 13 17 19 Rate Blood Pressure 147/58 147/58 147/58 O2 Sat by Pulse 97 97 98 Oximetry O2 Sat by Pulse Oximetry [ Anterior Bilateral Throughout] 08/03/20 08/03/20 08/03/20 02:00 02:01 02:03 Temperature Pulse Rate 74 73 75 Pulse Rate [ From Monitor] Respiratory 17 15 18 Rate Blood Pressure 148/55 148/55 148/55 O2 Sat by Pulse 97 97 98 Oximetry O2 Sat by Pulse Oximetry [ Anterior Bilateral Throughout] 08/03/20 08/03/20 08/03/20 02:05 02:07 02:09 Temperature Pulse Rate 74 74 74 Pulse Rate [ From Monitor] Respiratory 15 15 15 Rate Blood Pressure 148/55 148/55 148/55 O2 Sat by Pulse 97 97 98 Oximetry O2 Sat by Pulse Oximetry [ Anterior Bilateral Throughout] 08/03/20 08/03/20 08/03/20 02:11 02:13 02:15 Temperature Pulse Rate 75 73 74 Pulse Rate [ From Monitor] Respiratory 19 15 14 Rate Blood Pressure 148/55 147/58 146/50 O2 Sat by Pulse 98 97 98 Oximetry O2 Sat by Pulse Oximetry [ Anterior Bilateral Throughout] 08/03/20 08/03/20 08/03/20 03:17 03:19 03:21 Temperature Pulse Rate 62 61 62 Pulse Rate [ From Monitor] Respiratory 19 17 17 Rate Blood Pressure 143/56 143/56 143/56 O2 Sat by Pulse 98 98 98 Oximetry O2 Sat by Pulse Oximetry [ Anterior Bilateral Throughout] 08/03/20 08/03/20 08/03/20 03:23 03:25 03:27 Temperature Pulse Rate 62 62 64 Pulse Rate [ From Monitor] Respiratory 18 15 17 Rate Blood Pressure 143/56 143/56 143/56 O2 Sat by Pulse 98 98 98 Oximetry O2 Sat by Pulse Oximetry [ Anterior Bilateral Throughout] 08/03/20 08/03/20 08/03/20 03:29 03:30 03:31 Temperature 98.2 F Pulse Rate 78 78 77 Pulse Rate [ From Monitor] Respiratory 18 16 16 Rate Blood Pressure 143/56 154/65 154/65 O2 Sat by Pulse 97 97 98 Oximetry O2 Sat by Pulse Oximetry [ Anterior Bilateral Throughout] 08/03/20 08/03/20 08/03/20 03:33 03:35 03:36 Temperature Pulse Rate 77 76 75 Pulse Rate [ From Monitor] Respiratory 18 18 14 Rate Blood Pressure 154/65 154/65 148/55 O2 Sat by Pulse 98 98 98 Oximetry O2 Sat by Pulse Oximetry [ Anterior Bilateral Throughout] 08/03/20 08/03/20 08/03/20 03:37 03:39 03:41 Temperature Pulse Rate 76 74 74 Pulse Rate [ From Monitor] Respiratory 18 14 15 Rate Blood Pressure 154/65 154/65 154/65 O2 Sat by Pulse 98 97 97 Oximetry O2 Sat by Pulse Oximetry [ Anterior Bilateral Throughout] 08/03/20 08/03/20 08/03/20 03:43 03:45 03:47 Temperature Pulse Rate 74 73 74 Pulse Rate [ From Monitor] Respiratory 15 16 16 Rate Blood Pressure 154/65 155/50 155/50 O2 Sat by Pulse 97 98 98 Oximetry O2 Sat by Pulse Oximetry [ Anterior Bilateral Throughout] 08/03/20 08/03/20 08/03/20 03:49 03:51 03:53 Temperature Pulse Rate 75 73 73 Pulse Rate [ From Monitor] Respiratory 17 14 14 Rate Blood Pressure 155/50 155/50 155/50 O2 Sat by Pulse 98 97 97 Oximetry O2 Sat by Pulse Oximetry [ Anterior Bilateral Throughout] 08/03/20 08/03/20 08/03/20 03:55 03:57 03:58 Temperature Pulse Rate 73 73 73 Pulse Rate [ From Monitor] Respiratory 15 17 16 Rate Blood Pressure 155/50 155/50 155/50 O2 Sat by Pulse 98 98 98 Oximetry O2 Sat by Pulse Oximetry [ Anterior Bilateral Throughout] 08/03/20 08/03/20 08/03/20 03:59 04:00 04:01 Temperature Pulse Rate 73 73 72 Pulse Rate [ 74 From Monitor] Respiratory 18 17 14 Rate Blood Pressure 155/50 140/58 140/58 O2 Sat by Pulse 98 99 98 Oximetry O2 Sat by Pulse Oximetry [ Anterior Bilateral Throughout] 08/03/20 08/03/20 08/03/20 04:03 04:05 04:06 Temperature Pulse Rate 73 72 74 Pulse Rate [ From Monitor] Respiratory 16 14 17 Rate Blood Pressure 140/58 140/58 140/58 O2 Sat by Pulse 98 98 98 Oximetry O2 Sat by Pulse Oximetry [ Anterior Bilateral Throughout] 08/03/20 08/03/20 08/03/20 04:07 04:09 04:11 Temperature Pulse Rate 72 73 73 Pulse Rate [ From Monitor] Respiratory 15 15 16 Rate Blood Pressure 140/58 140/58 140/58 O2 Sat by Pulse 98 98 98 Oximetry O2 Sat by Pulse Oximetry [ Anterior Bilateral Throughout] 08/03/20 08/03/20 08/03/20 04:13 04:15 04:17 Temperature Pulse Rate 74 73 73 Pulse Rate [ From Monitor] Respiratory 18 18 18 Rate Blood Pressure 140/58 153/55 153/55 O2 Sat by Pulse 98 98 98 Oximetry O2 Sat by Pulse Oximetry [ Anterior Bilateral Throughout] 08/03/20 08/03/20 08/03/20 04:19 04:21 04:23 Temperature Pulse Rate 73 61 61 Pulse Rate [ From Monitor] Respiratory 17 16 15 Rate Blood Pressure 153/55 153/55 153/55 O2 Sat by Pulse 98 99 98 Oximetry O2 Sat by Pulse Oximetry [ Anterior Bilateral Throughout] 08/03/20 08/03/20 08/03/20 04:25 04:27 04:29 Temperature Pulse Rate 60 61 60 Pulse Rate [ From Monitor] Respiratory 16 15 15 Rate Blood Pressure 153/55 153/55 153/55 O2 Sat by Pulse 98 99 98 Oximetry O2 Sat by Pulse Oximetry [ Anterior Bilateral Throughout] 08/03/20 08/03/20 08/03/20 04:31 04:33 04:34 Temperature Pulse Rate 62 63 62 Pulse Rate [ From Monitor] Respiratory 15 16 Rate Blood Pressure 143/53 143/53 143/53 O2 Sat by Pulse 99 98 99 Oximetry O2 Sat by Pulse Oximetry [ Anterior Bilateral Throughout] 08/03/20 08/03/20 08/03/20 04:35 04:37 04:39 Temperature Pulse Rate 63 79 78 Pulse Rate [ From Monitor] Respiratory 18 14 15 Rate Blood Pressure 143/53 143/53 143/53 O2 Sat by Pulse 99 100 98 Oximetry O2 Sat by Pulse Oximetry [ Anterior Bilateral Throughout] 08/03/20 08/03/20 08/03/20 04:41 04:43 04:45 Temperature Pulse Rate 75 75 74 Pulse Rate [ From Monitor] Respiratory 15 17 16 Rate Blood Pressure 143/53 143/53 149/65 O2 Sat by Pulse 98 98 99 Oximetry O2 Sat by Pulse Oximetry [ Anterior Bilateral Throughout] 08/03/20 08/03/20 08/03/20 04:59 05:00 05:01 Temperature Pulse Rate 74 73 74 Pulse Rate [ From Monitor] Respiratory 15 14 16 Rate Blood Pressure 153/55 148/51 148/51 O2 Sat by Pulse 98 98 98 Oximetry O2 Sat by Pulse Oximetry [ Anterior Bilateral Throughout] 08/03/20 08/03/20 08/03/20 05:03 05:05 05:07 Temperature Pulse Rate 73 75 74 Pulse Rate [ From Monitor] Respiratory 15 18 19 Rate Blood Pressure 148/51 148/51 148/51 O2 Sat by Pulse 98 98 98 Oximetry O2 Sat by Pulse Oximetry [ Anterior Bilateral Throughout] 08/03/20 08/03/20 08/03/20 05:09 05:11 05:13 Temperature Pulse Rate 74 73 75 Pulse Rate [ From Monitor] Respiratory 18 14 18 Rate Blood Pressure 148/51 148/51 148/51 O2 Sat by Pulse 98 97 98 Oximetry O2 Sat by Pulse Oximetry [ Anterior Bilateral Throughout] 08/03/20 08/03/20 08/03/20 05:15 05:17 05:19 Temperature Pulse Rate 75 74 74 Pulse Rate [ From Monitor] Respiratory 18 15 16 Rate Blood Pressure 152/60 152/60 152/60 O2 Sat by Pulse 98 98 98 Oximetry O2 Sat by Pulse Oximetry [ Anterior Bilateral Throughout] 08/03/20 08/03/20 08/03/20 05:21 05:23 05:25 Temperature Pulse Rate 74 73 74 Pulse Rate [ From Monitor] Respiratory 17 15 16 Rate Blood Pressure 152/60 152/60 152/60 O2 Sat by Pulse 97 98 98 Oximetry O2 Sat by Pulse Oximetry [ Anterior Bilateral Throughout] 08/03/20 08/03/20 08/03/20 05:27 05:29 05:30 Temperature Pulse Rate 74 75 74 Pulse Rate [ From Monitor] Respiratory 15 16 14 Rate Blood Pressure 152/60 152/60 145/60 O2 Sat by Pulse 98 98 98 Oximetry O2 Sat by Pulse Oximetry [ Anterior Bilateral Throughout] 08/03/20 08/03/20 08/03/20 05:31 05:33 05:35 Temperature Pulse Rate 75 75 75 Pulse Rate [ From Monitor] Respiratory 17 16 18 Rate Blood Pressure 145/60 145/60 145/60 O2 Sat by Pulse 98 98 98 Oximetry O2 Sat by Pulse Oximetry [ Anterior Bilateral Throughout] 08/03/20 08/03/20 08/03/20 05:37 05:39 05:41 Temperature Pulse Rate 73 74 74 Pulse Rate [ From Monitor] Respiratory 15 17 17 Rate Blood Pressure 145/60 145/60 145/60 O2 Sat by Pulse 98 98 98 Oximetry O2 Sat by Pulse Oximetry [ Anterior Bilateral Throughout] 08/03/20 08/03/20 08/03/20 05:43 05:45 05:47 Temperature Pulse Rate 74 62 62 Pulse Rate [ From Monitor] Respiratory 15 18 20 Rate Blood Pressure 145/60 140/46 140/46 O2 Sat by Pulse 98 99 98 Oximetry O2 Sat by Pulse Oximetry [ Anterior Bilateral Throughout] 08/03/20 08/03/20 08/03/20 05:49 05:51 05:53 Temperature Pulse Rate 60 61 61 Pulse Rate [ From Monitor] Respiratory 16 18 15 Rate Blood Pressure 140/46 140/46 140/46 O2 Sat by Pulse 99 99 98 Oximetry O2 Sat by Pulse Oximetry [ Anterior Bilateral Throughout] 08/03/20 08/03/20 08/03/20 05:55 05:57 05:59 Temperature Pulse Rate 61 63 61 Pulse Rate [ From Monitor] Respiratory 15 17 18 Rate Blood Pressure 140/46 140/46 140/46 O2 Sat by Pulse 98 98 98 Oximetry O2 Sat by Pulse Oximetry [ Anterior Bilateral Throughout] 08/03/20 08/03/20 08/03/20 06:00 06:01 06:03 Temperature Pulse Rate 62 68 78 Pulse Rate [ From Monitor] Respiratory 16 16 8 L Rate Blood Pressure 130/55 130/55 130/55 O2 Sat by Pulse 98 98 98 Oximetry O2 Sat by Pulse Oximetry [ Anterior Bilateral Throughout] 08/03/20 08/03/20 08/03/20 06:05 06:07 06:09 Temperature Pulse Rate 76 74 73 Pulse Rate [ From Monitor] Respiratory 15 15 16 Rate Blood Pressure 130/55 130/55 130/55 O2 Sat by Pulse 97 97 98 Oximetry O2 Sat by Pulse Oximetry [ Anterior Bilateral Throughout] 08/03/20 08/03/20 08/03/20 06:11 06:13 06:15 Temperature Pulse Rate 73 72 71 Pulse Rate [ From Monitor] Respiratory 18 18 15 Rate Blood Pressure 130/55 130/55 126/26 O2 Sat by Pulse 98 98 98 Oximetry O2 Sat by Pulse Oximetry [ Anterior Bilateral Throughout] 08/03/20 08/03/20 08/03/20 06:17 06:19 06:21 Temperature Pulse Rate 70 70 70 Pulse Rate [ From Monitor] Respiratory 17 15 17 Rate Blood Pressure 126/26 126/26 126/26 O2 Sat by Pulse 99 98 98 Oximetry O2 Sat by Pulse Oximetry [ Anterior Bilateral Throughout] 08/03/20 08/03/20 08/03/20 06:23 06:25 06:27 Temperature Pulse Rate 68 69 67 Pulse Rate [ From Monitor] Respiratory 14 15 16 Rate Blood Pressure 126/26 126/26 126/26 O2 Sat by Pulse 98 99 99 Oximetry O2 Sat by Pulse Oximetry [ Anterior Bilateral Throughout] 08/03/20 08/03/20 08/03/20 06:29 06:31 07:15 Temperature Pulse Rate 68 67 57 L Pulse Rate [ From Monitor] Respiratory 17 17 15 Rate Blood Pressure 126/26 118/37 121/39 O2 Sat by Pulse 99 99 98 Oximetry O2 Sat by Pulse Oximetry [ Anterior Bilateral Throughout] 08/03/20 08/03/20 08/03/20 07:17 07:19 07:21 Temperature Pulse Rate 57 L 58 L 59 L Pulse Rate [ From Monitor] Respiratory 16 15 18 Rate Blood Pressure 121/39 121/39 121/39 O2 Sat by Pulse 98 99 99 Oximetry O2 Sat by Pulse Oximetry [ Anterior Bilateral Throughout] 08/03/20 08/03/20 08/03/20 07:23 07:25 07:27 Temperature Pulse Rate 55 L 58 L 58 L Pulse Rate [ From Monitor] Respiratory 14 19 13 Rate Blood Pressure 121/39 121/39 121/39 O2 Sat by Pulse 98 98 98 Oximetry O2 Sat by Pulse Oximetry [ Anterior Bilateral Throughout] 08/03/20 08/03/20 08/03/20 07:29 07:31 07:33 Temperature Pulse Rate 57 L 57 L 56 L Pulse Rate [ From Monitor] Respiratory 16 15 15 Rate Blood Pressure 121/39 124/34 124/34 O2 Sat by Pulse 97 98 98 Oximetry O2 Sat by Pulse Oximetry [ Anterior Bilateral Throughout] 08/03/20 08/03/20 08/03/20 07:35 07:37 07:39 Temperature Pulse Rate 58 L 60 58 L Pulse Rate [ From Monitor] Respiratory 15 15 18 Rate Blood Pressure 124/34 124/34 124/34 O2 Sat by Pulse 99 98 99 Oximetry O2 Sat by Pulse Oximetry [ Anterior Bilateral Throughout] 08/03/20 08/03/20 08/03/20 07:41 07:43 07:45 Temperature Pulse Rate 57 L 58 L 57 L Pulse Rate [ From Monitor] Respiratory 19 19 13 Rate Blood Pressure 124/34 124/34 121/48 O2 Sat by Pulse 99 99 99 Oximetry O2 Sat by Pulse Oximetry [ Anterior Bilateral Throughout] 08/03/20 08/03/20 08/03/20 07:47 07:49 07:50 Temperature Pulse Rate 59 L 57 L 59 L Pulse Rate [ From Monitor] Respiratory 17 15 17 Rate Blood Pressure 121/48 121/48 121/48 O2 Sat by Pulse 98 98 99 Oximetry O2 Sat by Pulse Oximetry [ Anterior Bilateral Throughout] 08/03/20 08/03/20 08/03/20 07:51 07:53 07:55 Temperature Pulse Rate 60 59 L 58 L Pulse Rate [ From Monitor] Respiratory 18 18 19 Rate Blood Pressure 121/48 121/48 121/48 O2 Sat by Pulse 98 99 99 Oximetry O2 Sat by Pulse Oximetry [ Anterior Bilateral Throughout] 08/03/20 08/03/20 08/03/20 07:57 07:59 08:00 Temperature 97.7 F Pulse Rate 57 L 58 L 58 L Pulse Rate [ 58 L From Monitor] Respiratory 15 15 14 Rate Blood Pressure 121/48 121/48 126/38 O2 Sat by Pulse 98 98 99 Oximetry O2 Sat by Pulse Oximetry [ Anterior Bilateral Throughout] 08/03/20 08/03/20 08/03/20 08:01 08:03 08:05 Temperature Pulse Rate 58 L 57 L 55 L Pulse Rate [ From Monitor] Respiratory 16 19 15 Rate Blood Pressure 120/58 120/58 120/58 O2 Sat by Pulse 99 99 98 Oximetry O2 Sat by Pulse Oximetry [ Anterior Bilateral Throughout] 08/03/20 08/03/20 08/03/20 08:07 08:09 08:11 Temperature Pulse Rate 57 L 58 L 57 L Pulse Rate [ From Monitor] Respiratory 19 15 15 Rate Blood Pressure 120/58 120/58 120/58 O2 Sat by Pulse 99 99 98 Oximetry O2 Sat by Pulse Oximetry [ Anterior Bilateral Throughout] 08/03/20 08/03/20 08/03/20 08:13 08:15 08:17 Temperature Pulse Rate 60 56 L 59 L Pulse Rate [ From Monitor] Respiratory 18 15 17 Rate Blood Pressure 120/58 116/38 116/38 O2 Sat by Pulse 99 99 99 Oximetry O2 Sat by Pulse Oximetry [ Anterior Bilateral Throughout] 08/03/20 08/03/20 08/03/20 08:19 08:21 08:23 Temperature Pulse Rate 56 L 55 L 57 L Pulse Rate [ From Monitor] Respiratory 18 15 18 Rate Blood Pressure 116/38 121/48 121/48 O2 Sat by Pulse 99 99 99 Oximetry O2 Sat by Pulse Oximetry [ Anterior Bilateral Throughout] 08/03/20 08/03/20 08/03/20 08:25 08:27 08:29 Temperature Pulse Rate 57 L 59 L 56 L Pulse Rate [ From Monitor] Respiratory 16 18 17 Rate Blood Pressure 121/48 121/48 121/48 O2 Sat by Pulse 98 99 99 Oximetry O2 Sat by Pulse Oximetry [ Anterior Bilateral Throughout] 08/03/20 08/03/2008/03/20 08:30 08:31 08:33 Temperature Pulse Rate 56 L 57 L 58 L Pulse Rate [ From Monitor] Respiratory 15 16 18 Rate Blood Pressure 126/40 126/40 126/40 O2 Sat by Pulse 99 99 99 Oximetry O2 Sat by Pulse Oximetry [ Anterior Bilateral Throughout] 08/03/20 08/03/20 08/03/20 08:35 08:37 08:39 Temperature Pulse Rate 59 L 59 L 59 L Pulse Rate [ From Monitor] Respiratory 20 19 17 Rate Blood Pressure 126/40 126/40 126/40 O2 Sat by Pulse 100 100 99 Oximetry O2 Sat by Pulse Oximetry [ Anterior Bilateral Throughout] 08/03/20 08/03/20 08/03/20 08:41 08:43 08:45 Temperature Pulse Rate 58 L 58 L 58 L Pulse Rate [ From Monitor] Respiratory 16 17 15 Rate Blood Pressure 126/40 126/40 128/41 O2 Sat by Pulse 99 99 98 Oximetry O2 Sat by Pulse Oximetry [ Anterior Bilateral Throughout] 08/03/20 08/03/20 08:47 08:50 Temperature Pulse Rate 58 L 70 Pulse Rate [ From Monitor] Respiratory 15 18 Rate Blood Pressure 128/41 125/37 O2 Sat by Pulse 99 95 Oximetry O2 Sat by Pulse Oximetry [ Anterior Bilateral Throughout] Constitutional: appears uncomfortable, other (elderly looking female with mildly increased resp effort at rest) Eyes: non-icteric ENT: oropharynx dry, other (ETT 23-24 cm AYAN) Neck: supple, no lymphadenopathy, no JVD Effort: mildly labored Ascultation: Bilateral: diminished breath sounds, rales Percussion: Bilateral: not dull Cardiovascular: regular rate and rhythm, other (S1,S2) Gastrointestinal: normoactive bowel sounds, soft, non-tender, non-distended Integumentary: normal Extremities: no cyanosis, pink and warm, pulses normal, no ischemia or petechiae, edema (pedal and peripheral ) Neurologic: pupils equal and round, unable to assess, other (lethargic to obtunded) Psychiatric: other (unable to assess re: AMS) CBC and BMP: 08/03/20 04:38 08/03/20 04:38 ABG, PT/INR, D-dimer: ABG ABG pH 7.344 pH Units (7.350-7.450) L 08/02/20 11:25 POC ABG pCO2 44.1 mmHg (32.0-48.0) 07/18/20 04:24 ABG pCO2 39.0 mm Hg 08/02/20 11:25 POC ABG pO2 86.8 mmHg (83-108) 07/18/20 04:24 ABG pO2 101.1 mm Hg (80.0-90.0) H 08/02/20 11:25 POC ABG HCO3 25.6 07/18/20 04:24 ABG O2 Saturation 97.5 % (95.0-99.0) 08/02/20 11:25 PT/INR, D-dimer PT 14.2 Sec. (12.2-14.9) 05/29/20 15:10 INR 1.08 (0.87-1.13) 05/29/20 15:10 D-Dimer 2310.15 ng/mlDDU (0-234) H 06/29/20 14:45 Abnormal lab findings: Abnormal Labs 05/28/20 05/28/20 05/28/20 13:29 13:47 13:47 WBC RBC Hgb Hct MCHC RDW 15.3 H Lymph % (Auto) [place] % (Auto) Eos % (Auto) Lymph # [place] # Lymph # (Auto) [place] # (Auto) Eos # (Auto) Seg Neutrophils % Seg Neuts % (Manual) Lymphocytes % (Manual) Seg Neutrophils # Seg Neutrophils # Man Lymphocytes # (Manual) Monocytes % (Manual) Eosinophils % (Manual) Monocytes # (Manual) Eosinophils # (Manual) D-Dimer Heparin Anti-Xa Level ABG pH POC ABG pCO2 POC ABG pO2 ABG pO2 ABG HCO3 ABG O2 Saturation ABG Base Excess ABG Hemoglobin ABG Oxyhemoglobin VBG pH ABG Sodium ABG Potassium ABG Glucose Oxyhemoglobin Sodium Potassium 6.6 H* Chloride 109.2 H Carbon Dioxide 17 L BUN 29 H Creatinine 1.3 H Glucose 265 H POC Glucose 248 H Lactic Acid Calcium 8.1 L Ferritin AST 63 H Alkaline Phosphatase Magnesium Lactate Dehydrogenase Total Creatine Kinase 301 H CK-MB (CK-2) 4.3 H C-Reactive Protein Total Protein 5.4 L Albumin 2.6 L Troponin T HDL Cholesterol Arterial Blood Glucose Urine WBC (Auto) Urine Creatinine Urine Total Protein Phenytoin Coronavirus (PCR) Crossmatch 05/28/20 05/28/20 05/28/20 13:47 13:47 14:46 WBC RBC Hgb Hct MCHC RDW Lymph % (Auto) [place] % (Auto) Eos % (Auto) Lymph # [place] # Lymph # (Auto) [place] # (Auto) Eos # (Auto) Seg Neutrophils % Seg Neuts % (Manual) Lymphocytes % (Manual) Seg Neutrophils # Seg Neutrophils # Man Lymphocytes # (Manual) Monocytes % (Manual) Eosinophils % (Manual) Monocytes # (Manual) Eosinophils # (Manual) D-Dimer Heparin Anti-Xa Level ABG pH POC ABG pCO2 POC ABG pO2 ABG pO2 ABG HCO3 ABG O2 Saturation ABG Base Excess ABG Hemoglobin ABG Oxyhemoglobin VBG pH 7.152 L* ABG Sodium ABG Potassium ABG Glucose Oxyhemoglobin Sodium Potassium 7.2 H* Chloride Carbon Dioxide BUN Creatinine Glucose POC Glucose Lactic Acid 3.40 H* Calcium Ferritin AST Alkaline Phosphatase Magnesium Lactate Dehydrogenase Total Creatine Kinase CK-MB (CK-2) C-Reactive Protein Total Protein Albumin Troponin T HDL Cholesterol Arterial Blood Glucose Urine WBC (Auto) Urine Creatinine Urine Total Protein Phenytoin Coronavirus (PCR) Crossmatch 05/28/20 05/28/20 05/28/20 15:33 15:33 15:51 WBC RBC Hgb Hct MCHC RDW Lymph % (Auto) [place] % (Auto) Eos % (Auto) Lymph # [place] # Lymph # (Auto) [place] # (Auto) Eos # (Auto) Seg Neutrophils % Seg Neuts % (Manual) Lymphocytes % (Manual) Seg Neutrophils # Seg Neutrophils # Man Lymphocytes # (Manual) Monocytes % (Manual) Eosinophils % (Manual) Monocytes # (Manual) Eosinophils # (Manual) D-Dimer 8780.43 H Heparin Anti-Xa Level ABG pH 7.284 L POC ABG pCO2 POC ABG pO2 ABG pO2 273.0 H ABG HCO3 ABG O2 Saturation 99.4 H ABG Base Excess -6.1 L ABG Hemoglobin 17.2 H ABG Oxyhemoglobin VBG pH ABG Sodium ABG Potassium ABG Glucose Oxyhemoglobin Sodium Potassium Chloride Carbon Dioxide BUN Creatinine Glucose 152 H POC Glucose Lactic Acid Calcium Ferritin AST Alkaline Phosphatase Magnesium Lactate Dehydrogenase 365 H Total Creatine Kinase CK-MB (CK-2) C-Reactive Protein Total Protein Albumin Troponin T HDL Cholesterol Arterial Blood Glucose Urine WBC (Auto) Urine Creatinine Urine Total Protein Phenytoin Coronavirus (PCR) Crossmatch 05/28/20 05/28/20 05/28/20 16:30 20:41 23:20 WBC RBC Hgb Hct MCHC RDW Lymph % (Auto) [place] % (Auto) Eos % (Auto) Lymph # [place] # Lymph # (Auto) [place] # (Auto) Eos # (Auto) Seg Neutrophils % Seg Neuts % (Manual) Lymphocytes % (Manual) Seg Neutrophils # Seg Neutrophils # Man Lymphocytes # (Manual) Monocytes % (Manual) Eosinophils % (Manual) Monocytes # (Manual) Eosinophils # (Manual) D-Dimer Heparin Anti-Xa Level ABG pH POC ABG pCO2 POC ABG pO2 ABG pO2 ABG HCO3 ABG O2 Saturation ABG Base Excess ABG Hemoglobin ABG Oxyhemoglobin VBG pH ABG Sodium ABG Potassium ABG Glucose Oxyhemoglobin Sodium Potassium Chloride Carbon Dioxide BUN Creatinine Glucose POC Glucose 225 H 224 H Lactic Acid Calcium Ferritin AST Alkaline Phosphatase Magnesium Lactate Dehydrogenase Total Creatine Kinase CK-MB (CK-2) C-Reactive Protein Total Protein Albumin Troponin T HDL Cholesterol Arterial Blood Glucose Urine WBC (Auto) 17.0 H Urine Creatinine Urine Total Protein Phenytoin Coronavirus (PCR) Crossmatch 05/28/20 05/29/20 05/29/20 Unknown 04:35 04:43 WBC RBC 3.48 L Hgb 9.8 L Hct 29.4 L MCHC RDW 16.0 H Lymph % (Auto) 7.4 L [place] % (Auto) Eos % (Auto) Lymph # 0.7 L [place] # Lymph # (Auto) [place] # (Auto) Eos # (Auto) Seg Neutrophils % 89.1 H Seg Neuts % (Manual) Lymphocytes % (Manual) Seg Neutrophils # 8.1 H Seg Neutrophils # Man Lymphocytes # (Manual) Monocytes % (Manual) Eosinophils % (Manual) Monocytes # (Manual) Eosinophils # (Manual) D-Dimer Heparin Anti-Xa Level ABG pH POC ABG pCO2 POC ABG pO2 ABG pO2 ABG HCO3 19.3 L ABG O2 Saturation ABG Base Excess -4.5 L ABG Hemoglobin 9.7 L ABG Oxyhemoglobin VBG pH ABG Sodium ABG Potassium ABG Glucose Oxyhemoglobin Sodium Potassium Chloride Carbon Dioxide BUN Creatinine Glucose POC Glucose Lactic Acid Calcium Ferritin AST Alkaline Phosphatase Magnesium Lactate Dehydrogenase Total Creatine Kinase CK-MB (CK-2) C-Reactive Protein Total Protein Albumin Troponin T HDL Cholesterol Arterial Blood Glucose Urine WBC (Auto) Urine Creatinine Urine Total Protein Phenytoin Coronavirus (PCR) Positive A Crossmatch 05/29/20 05/29/20 05/29/20 04:43 15:10 17:17 WBC RBC Hgb 9.3 L Hct 28.7 L MCHC RDW Lymph % (Auto) [place] % (Auto) Eos % (Auto) Lymph # [place] # Lymph # (Auto) [place] # (Auto) Eos # (Auto) Seg Neutrophils % Seg Neuts % (Manual) Lymphocytes % (Manual) Seg Neutrophils # Seg Neutrophils # Man Lymphocytes # (Manual) Monocytes % (Manual) Eosinophils % (Manual) Monocytes # (Manual) Eosinophils # (Manual) D-Dimer Heparin Anti-Xa Level ABG pH POC ABG pCO2 POC ABG pO2 ABG pO2 ABG HCO3 ABG O2 Saturation ABG Base Excess ABG Hemoglobin ABG Oxyhemoglobin VBG pH ABG Sodium ABG Potassium ABG Glucose Oxyhemoglobin Sodium Potassium Chloride 110.2 H Carbon Dioxide 18 L BUN 32 H Creatinine 1.4 H Glucose 180 H POC Glucose 147 H Lactic Acid Calcium Ferritin AST Alkaline Phosphatase Magnesium Lactate Dehydrogenase Total Creatine Kinase CK-MB (CK-2) C-Reactive Protein Total Protein Albumin Troponin T HDL Cholesterol Arterial Blood Glucose Urine WBC (Auto) Urine Creatinine Urine Total Protein Phenytoin Coronavirus (PCR) Crossmatch 05/30/20 05/30/20 05/30/20 00:08 00:12 04:15 WBC RBC Hgb Hct MCHC RDW Lymph % (Auto) [place] % (Auto) Eos % (Auto) Lymph # [place] # Lymph # (Auto) [place] # (Auto) Eos # (Auto) Seg Neutrophils % Seg Neuts % (Manual) Lymphocytes % (Manual) Seg Neutrophils # Seg Neutrophils # Man Lymphocytes # (Manual) Monocytes % (Manual) Eosinophils % (Manual) Monocytes # (Manual) Eosinophils # (Manual) D-Dimer Heparin Anti-Xa Level 0.71 H ABG pH 7.460 H POC ABG pCO2 POC ABG pO2 ABG pO2 106.0 H ABG HCO3 18.9 L ABG O2 Saturation ABG Base Excess -4.4 L ABG Hemoglobin 6.8 L ABG Oxyhemoglobin VBG pH ABG Sodium ABG Potassium ABG Glucose Oxyhemoglobin Sodium Potassium Chloride Carbon Dioxide BUN Creatinine Glucose POC Glucose 195 H Lactic Acid Calcium Ferritin AST Alkaline Phosphatase Magnesium Lactate Dehydrogenase Total Creatine Kinase CK-MB (CK-2) C-Reactive Protein Total Protein Albumin Troponin T HDL Cholesterol Arterial Blood Glucose Urine WBC (Auto) Urine Creatinine Urine Total Protein Phenytoin Coronavirus (PCR) Crossmatch 05/30/20 05/30/20 05/30/20 06:07 08:37 12:33 WBC RBC Hgb Hct MCHC RDW Lymph % (Auto) [place] % (Auto) Eos % (Auto) Lymph # [place] # Lymph # (Auto) [place] # (Auto) Eos # (Auto) Seg Neutrophils % Seg Neuts % (Manual) Lymphocytes % (Manual) Seg Neutrophils # Seg Neutrophils # Man Lymphocytes # (Manual) Monocytes % (Manual) Eosinophils % (Manual) Monocytes # (Manual) Eosinophils # (Manual) D-Dimer Heparin Anti-Xa Level 0.85 H ABG pH POC ABG pCO2 POC ABG pO2 ABG pO2 ABG HCO3 ABG O2 Saturation ABG Base Excess ABG Hemoglobin ABG Oxyhemoglobin VBG pH ABG Sodium ABG Potassium ABG Glucose Oxyhemoglobin Sodium Potassium Chloride Carbon Dioxide BUN Creatinine Glucose POC Glucose 182 H 187 H Lactic Acid Calcium Ferritin AST Alkaline Phosphatase Magnesium Lactate Dehydrogenase Total Creatine Kinase CK-MB (CK-2) C-Reactive Protein Total Protein Albumin Troponin T HDL Cholesterol Arterial Blood Glucose Urine WBC (Auto) Urine Creatinine Urine Total Protein Phenytoin Coronavirus (PCR) Crossmatch 05/30/20 05/30/20 05/30/20 15:58 17:57 23:36 WBC RBC Hgb Hct MCHC RDW Lymph % (Auto) [place] % (Auto) Eos % (Auto) Lymph # [place] # Lymph # (Auto) [place] # (Auto) Eos # (Auto) Seg Neutrophils % Seg Neuts % (Manual) Lymphocytes % (Manual) Seg Neutrophils # Seg Neutrophils # Man Lymphocytes # (Manual) Monocytes % (Manual) Eosinophils % (Manual) Monocytes # (Manual) Eosinophils # (Manual) D-Dimer Heparin Anti-Xa Level 1.03 H ABG pH POC ABG pCO2 POC ABG pO2 ABG pO2 ABG HCO3 ABG O2 Saturation ABG Base Excess ABG Hemoglobin ABG Oxyhemoglobin VBG pH ABG Sodium ABG Potassium ABG Glucose Oxyhemoglobin Sodium Potassium Chloride Carbon Dioxide BUN Creatinine Glucose POC Glucose 208 H 185 H Lactic Acid Calcium Ferritin AST Alkaline Phosphatase Magnesium Lactate Dehydrogenase Total Creatine Kinase CK-MB (CK-2) C-Reactive Protein Total Protein Albumin Troponin T HDL Cholesterol Arterial Blood Glucose Urine WBC (Auto) Urine Creatinine Urine Total Protein Phenytoin Coronavirus (PCR) Crossmatch 05/31/20 05/31/20 05/31/20 02:16 03:55 06:16 WBC RBC Hgb 9.2 L Hct 27.5 L MCHC RDW Lymph % (Auto) [place] % (Auto) Eos % (Auto) Lymph # [place] # Lymph # (Auto) [place] # (Auto) Eos # (Auto) Seg Neutrophils % Seg Neuts % (Manual) Lymphocytes % (Manual) Seg Neutrophils # Seg Neutrophils # Man Lymphocytes # (Manual) Monocytes % (Manual) Eosinophils % (Manual) Monocytes # (Manual) Eosinophils # (Manual) D-Dimer Heparin Anti-Xa Level ABG pH POC ABG pCO2 POC ABG pO2 ABG pO2 94.7 H ABG HCO3 18.6 L ABG O2 Saturation ABG Base Excess -5.5 L ABG Hemoglobin 7.9 L ABG Oxyhemoglobin VBG pH ABG Sodium ABG Potassium ABG Glucose Oxyhemoglobin Sodium Potassium Chloride Carbon Dioxide BUN Creatinine Glucose POC Glucose 160 H Lactic Acid Calcium Ferritin AST Alkaline Phosphatase Magnesium Lactate Dehydrogenase Total Creatine Kinase CK-MB (CK-2) C-Reactive Protein Total Protein Albumin Troponin T HDL Cholesterol Arterial Blood Glucose Urine WBC (Auto) Urine Creatinine Urine Total Protein Phenytoin Coronavirus (PCR) Crossmatch 05/31/20 05/31/20 05/31/20 12:20 13:03 18:13 WBC RBC Hgb Hct MCHC RDW Lymph % (Auto) [place] % (Auto) Eos % (Auto) Lymph # [place] # Lymph # (Auto) [place] # (Auto) Eos # (Auto) Seg Neutrophils % Seg Neuts % (Manual) Lymphocytes % (Manual) Seg Neutrophils # Seg Neutrophils # Man Lymphocytes # (Manual) Monocytes % (Manual) Eosinophils % (Manual) Monocytes # (Manual) Eosinophils # (Manual) D-Dimer Heparin Anti-Xa Level ABG pH POC ABG pCO2 POC ABG pO2 ABG pO2 ABG HCO3 ABG O2 Saturation ABG Base Excess ABG Hemoglobin ABG Oxyhemoglobin VBG pH ABG Sodium ABG Potassium ABG Glucose Oxyhemoglobin Sodium Potassium Chloride Carbon Dioxide 18 L BUN 48 H Creatinine 1.6 H Glucose 115 H POC Glucose 128 H 159 H Lactic Acid Calcium 8.3 L Ferritin AST Alkaline Phosphatase Magnesium Lactate Dehydrogenase Total Creatine Kinase CK-MB (CK-2) C-Reactive Protein Total Protein 5.4 L Albumin 2.4 L Troponin T HDL Cholesterol Arterial Blood Glucose Urine WBC (Auto) Urine Creatinine Urine Total Protein Phenytoin Coronavirus (PCR) Crossmatch 05/31/20 06/01/20 06/01/20 23:51 04:00 05:48 WBC RBC Hgb Hct MCHC RDW Lymph % (Auto) [place] % (Auto) Eos % (Auto) Lymph # [place] # Lymph # (Auto) [place] # (Auto) Eos # (Auto) Seg Neutrophils % Seg Neuts % (Manual) Lymphocytes % (Manual) Seg Neutrophils # Seg Neutrophils # Man Lymphocytes # (Manual) Monocytes % (Manual) Eosinophils % (Manual) Monocytes # (Manual) Eosinophils # (Manual) D-Dimer Heparin Anti-Xa Level ABG pH POC ABG pCO2 POC ABG pO2 ABG pO2 109.8 H ABG HCO3 18.8 L ABG O2 Saturation ABG Base Excess -5.9 L ABG Hemoglobin 7.8 L ABG Oxyhemoglobin VBG pH ABG Sodium ABG Potassium ABG Glucose Oxyhemoglobin Sodium Potassium Chloride Carbon Dioxide BUN Creatinine Glucose POC Glucose 171 H 133 H Lactic Acid Calcium Ferritin AST Alkaline Phosphatase Magnesium Lactate Dehydrogenase Total Creatine Kinase CK-MB (CK-2) C-Reactive Protein Total Protein Albumin Troponin T HDL Cholesterol Arterial Blood Glucose Urine WBC (Auto) Urine Creatinine Urine Total Protein Phenytoin Coronavirus (PCR) Crossmatch 06/01/20 06/01/20 06/02/20 12:28 17:29 00:08 WBC RBC Hgb Hct MCHC RDW Lymph % (Auto) [place] % (Auto) Eos % (Auto) Lymph # [place] # Lymph # (Auto) [place] # (Auto) Eos # (Auto) Seg Neutrophils % Seg Neuts % (Manual) Lymphocytes % (Manual) Seg Neutrophils # Seg Neutrophils # Man Lymphocytes # (Manual) Monocytes % (Manual) Eosinophils % (Manual) Monocytes # (Manual) Eosinophils # (Manual) D-Dimer Heparin Anti-Xa Level ABG pH POC ABG pCO2 POC ABG pO2 ABG pO2 ABG HCO3 ABG O2 Saturation ABG Base Excess ABG Hemoglobin ABG Oxyhemoglobin VBG pH ABG Sodium ABG Potassium ABG Glucose Oxyhemoglobin Sodium Potassium Chloride Carbon Dioxide BUN Creatinine Glucose POC Glucose 199 H 209 H 162 H Lactic Acid Calcium Ferritin AST Alkaline Phosphatase Magnesium Lactate Dehydrogenase Total Creatine Kinase CK-MB (CK-2) C-Reactive Protein Total Protein Albumin Troponin T HDL Cholesterol Arterial Blood Glucose Urine WBC (Auto) Urine Creatinine Urine Total Protein Phenytoin Coronavirus (PCR) Crossmatch 06/02/20 06/02/20 06/02/20 04:20 04:20 04:44 WBC RBC Hgb 10.0 L Hct MCHC RDW Lymph % (Auto) [place] % (Auto) Eos % (Auto) Lymph # [place] # Lymph # (Auto) [place] # (Auto) Eos # (Auto) Seg Neutrophils % Seg Neuts % (Manual) Lymphocytes % (Manual) Seg Neutrophils # Seg Neutrophils # Man Lymphocytes # (Manual) Monocytes % (Manual) Eosinophils % (Manual) Monocytes # (Manual) Eosinophils # (Manual) D-Dimer Heparin Anti-Xa Level 0.10 L ABG pH POC ABG pCO2 POC ABG pO2 ABG pO2 150.6 H ABG HCO3 ABG O2 Saturation ABG Base Excess -4.1 L ABG Hemoglobin 11.8 L ABG Oxyhemoglobin VBG pH ABG Sodium ABG Potassium ABG Glucose Oxyhemoglobin Sodium Potassium Chloride Carbon Dioxide BUN Creatinine Glucose POC Glucose Lactic Acid Calcium Ferritin AST Alkaline Phosphatase Magnesium Lactate Dehydrogenase Total Creatine Kinase CK-MB (CK-2) C-Reactive Protein Total Protein Albumin Troponin T HDL Cholesterol Arterial Blood Glucose Urine WBC (Auto) Urine Creatinine Urine Total Protein Phenytoin Coronavirus (PCR) Crossmatch 06/02/20 06/02/20 06/02/20 05:53 12:04 13:49 WBC RBC Hgb Hct MCHC RDW Lymph % (Auto) [place] % (Auto) Eos % (Auto) Lymph # [place] # Lymph # (Auto) [place] # (Auto) Eos # (Auto) Seg Neutrophils % Seg Neuts % (Manual) Lymphocytes % (Manual) Seg Neutrophils # Seg Neutrophils # Man Lymphocytes # (Manual) Monocytes % (Manual) Eosinophils % (Manual) Monocytes # (Manual) Eosinophils # (Manual) D-Dimer Heparin Anti-Xa Level 0.28 L ABG pH POC ABG pCO2 POC ABG pO2 ABG pO2 ABG HCO3 ABG O2 Saturation ABG Base Excess ABG Hemoglobin ABG Oxyhemoglobin VBG pH ABG Sodium ABG Potassium ABG Glucose Oxyhemoglobin Sodium Potassium Chloride Carbon Dioxide BUN Creatinine Glucose POC Glucose 149 H 220 H Lactic Acid Calcium Ferritin AST Alkaline Phosphatase Magnesium Lactate Dehydrogenase Total Creatine Kinase CK-MB (CK-2) C-Reactive Protein Total Protein Albumin Troponin T HDL Cholesterol Arterial Blood Glucose Urine WBC (Auto) Urine Creatinine Urine Total Protein Phenytoin Coronavirus (PCR) Crossmatch 06/02/20 06/02/20 06/03/20 13:49 18:31 00:42 WBC RBC Hgb Hct MCHC RDW Lymph % (Auto) [place] % (Auto) Eos % (Auto) Lymph # [place] # Lymph # (Auto) [place] # (Auto) Eos # (Auto) Seg Neutrophils % Seg Neuts % (Manual) Lymphocytes % (Manual) Seg Neutrophils # Seg Neutrophils # Man Lymphocytes # (Manual) Monocytes % (Manual) Eosinophils % (Manual) Monocytes # (Manual) Eosinophils # (Manual) D-Dimer 769.68 H Heparin Anti-Xa Level ABG pH POC ABG pCO2 POC ABG pO2 ABG pO2 ABG HCO3 ABG O2 Saturation ABG Base Excess ABG Hemoglobin ABG Oxyhemoglobin VBG pH ABG Sodium ABG Potassium ABG Glucose Oxyhemoglobin Sodium Potassium Chloride Carbon Dioxide BUN Creatinine Glucose POC Glucose 225 H 212 H Lactic Acid Calcium Ferritin AST Alkaline Phosphatase Magnesium Lactate Dehydrogenase Total Creatine Kinase CK-MB (CK-2) C-Reactive Protein Total Protein Albumin Troponin T HDL Cholesterol Arterial Blood Glucose Urine WBC (Auto) Urine Creatinine Urine Total Protein Phenytoin Coronavirus (PCR) Crossmatch 06/03/20 06/03/20 06/03/20 05:16 05:16 05:25 WBC 11.4 H RBC Hgb Hct MCHC RDW 16.4 H Lymph % (Auto) [place] % (Auto) Eos % (Auto) Lymph # [place] # Lymph # (Auto) [place] # (Auto) Eos # (Auto) Seg Neutrophils % Seg Neuts % (Manual) Lymphocytes % (Manual) Seg Neutrophils # Seg Neutrophils # Man Lymphocytes # (Manual) Monocytes % (Manual) Eosinophils % (Manual) Monocytes # (Manual) Eosinophils # (Manual) D-Dimer Heparin Anti-Xa Level ABG pH POC ABG pCO2 POC ABG pO2 ABG pO2 160.9 H ABG HCO3 19.4 L ABG O2 Saturation ABG Base Excess -4.9 L ABG Hemoglobin 7.0 L ABG Oxyhemoglobin VBG pH ABG Sodium ABG Potassium ABG Glucose Oxyhemoglobin Sodium Potassium Chloride Carbon Dioxide 18 L BUN 65 H Creatinine 2.0 H Glucose 175 H POC Glucose Lactic Acid Calcium 8.0 L Ferritin AST Alkaline Phosphatase Magnesium Lactate Dehydrogenase Total Creatine Kinase CK-MB (CK-2) C-Reactive Protein Total Protein 5.5 L Albumin 2.2 L Troponin T HDL Cholesterol Arterial Blood Glucose Urine WBC (Auto) Urine Creatinine Urine Total Protein Phenytoin Coronavirus (PCR) Crossmatch 06/03/20 06/03/20 06/03/20 06:07 11:58 18:24 WBC RBC Hgb Hct MCHC RDW Lymph % (Auto) [place] % (Auto) Eos % (Auto) Lymph # [place] # Lymph # (Auto) [place] # (Auto) Eos # (Auto) Seg Neutrophils % Seg Neuts % (Manual) Lymphocytes % (Manual) Seg Neutrophils # Seg Neutrophils # Man Lymphocytes # (Manual) Monocytes % (Manual) Eosinophils % (Manual) Monocytes # (Manual) Eosinophils # (Manual) D-Dimer Heparin Anti-Xa Level ABG pH POC ABG pCO2 POC ABG pO2 ABG pO2 ABG HCO3 ABG O2 Saturation ABG Base Excess ABG Hemoglobin ABG Oxyhemoglobin VBG pH ABG Sodium ABG Potassium ABG Glucose Oxyhemoglobin Sodium Potassium Chloride Carbon Dioxide BUN Creatinine Glucose POC Glucose 177 H 163 H 211 H Lactic Acid Calcium Ferritin AST Alkaline Phosphatase Magnesium Lactate Dehydrogenase Total Creatine Kinase CK-MB (CK-2) C-Reactive Protein Total Protein Albumin Troponin T HDL Cholesterol Arterial Blood Glucose Urine WBC (Auto) Urine Creatinine Urine Total Protein Phenytoin Coronavirus (PCR) Crossmatch 06/03/20 06/03/20 06/04/20 21:50 Unknown 00:26 WBC RBC Hgb Hct MCHC RDW Lymph % (Auto) [place] % (Auto) Eos % (Auto) Lymph # [place] # Lymph # (Auto) [place] # (Auto) Eos # (Auto) Seg Neutrophils % Seg Neuts % (Manual) Lymphocytes % (Manual) Seg Neutrophils # Seg Neutrophils # Man Lymphocytes # (Manual) Monocytes % (Manual) Eosinophils % (Manual) Monocytes # (Manual) Eosinophils # (Manual) D-Dimer Heparin Anti-Xa Level ABG pH POC ABG pCO2 POC ABG pO2 ABG pO2 ABG HCO3 ABG O2 Saturation ABG Base Excess ABG Hemoglobin ABG Oxyhemoglobin VBG pH ABG Sodium ABG Potassium ABG Glucose Oxyhemoglobin Sodium 135 L Potassium Chloride Carbon Dioxide 18 L BUN Creatinine Glucose POC Glucose 241 H Lactic Acid Calcium Ferritin AST Alkaline Phosphatase Magnesium Lactate Dehydrogenase Total Creatine Kinase CK-MB (CK-2) C-Reactive Protein Total Protein Albumin Troponin T HDL Cholesterol Arterial Blood Glucose Urine WBC (Auto) 11.0 H Urine Creatinine Urine Total Protein Phenytoin Coronavirus (PCR) Crossmatch 06/04/20 06/04/20 06/04/20 03:35 04:19 04:19 WBC RBC 3.15 L Hgb 8.9 L Hct 26.8 L D MCHC RDW 15.9 H Lymph % (Auto) 6.0 L [place] % (Auto) Eos % (Auto) Lymph # 0.6 L [place] # Lymph # (Auto) [place] # (Auto) Eos # (Auto) Seg Neutrophils % 86.6 H Seg Neuts % (Manual) Lymphocytes % (Manual) Seg Neutrophils # 9.1 H Seg Neutrophils # Man Lymphocytes # (Manual) Monocytes % (Manual) Eosinophils % (Manual) Monocytes # (Manual) Eosinophils # (Manual) D-Dimer Heparin Anti-Xa Level ABG pH 7.331 L POC ABG pCO2 POC ABG pO2 ABG pO2 ABG HCO3 ABG O2 Saturation ABG Base Excess -4.7 L ABG Hemoglobin 11.0 L ABG Oxyhemoglobin VBG pH ABG Sodium ABG Potassium ABG Glucose Oxyhemoglobin 93.9 L Sodium 136 L Potassium Chloride Carbon Dioxide 20 L BUN 73 H Creatinine 2.0 H Glucose 192 H POC Glucose Lactic Acid Calcium 8.0 L Ferritin AST Alkaline Phosphatase Magnesium Lactate Dehydrogenase 271 H Total Creatine Kinase CK-MB (CK-2) C-Reactive Protein 2.20 H Total Protein 5.0 L Albumin 2.0 L Troponin T HDL Cholesterol Arterial Blood Glucose Urine WBC (Auto) Urine Creatinine Urine Total Protein Phenytoin Coronavirus (PCR) Crossmatch 06/04/20 06/04/20 06/04/20 04:19 05:51 11:48 WBC RBC Hgb Hct MCHC RDW Lymph % (Auto) [place] % (Auto) Eos % (Auto) Lymph # [place] # Lymph # (Auto) [place] # (Auto) Eos # (Auto) Seg Neutrophils % Seg Neuts % (Manual) Lymphocytes % (Manual) Seg Neutrophils # Seg Neutrophils # Man Lymphocytes # (Manual) Monocytes % (Manual) Eosinophils % (Manual) Monocytes # (Manual) Eosinophils # (Manual) D-Dimer 414.52 H Heparin Anti-Xa Level ABG pH POC ABG pCO2 POC ABG pO2 ABG pO2 ABG HCO3 ABG O2 Saturation ABG Base Excess ABG Hemoglobin ABG Oxyhemoglobin VBG pH ABG Sodium ABG Potassium ABG Glucose Oxyhemoglobin Sodium Potassium Chloride Carbon Dioxide BUN Creatinine Glucose POC Glucose 179 H 213 H Lactic Acid Calcium Ferritin AST Alkaline Phosphatase Magnesium Lactate Dehydrogenase Total Creatine Kinase CK-MB (CK-2) C-Reactive Protein Total Protein Albumin Troponin T HDL Cholesterol Arterial Blood Glucose Urine WBC (Auto) Urine Creatinine Urine Total Protein Phenytoin Coronavirus (PCR) Crossmatch 06/04/20 06/05/20 06/05/20 18:25 00:16 05:00 WBC RBC Hgb Hct MCHC RDW Lymph % (Auto) [place] % (Auto) Eos % (Auto) Lymph # [place] # Lymph # (Auto) [place] # (Auto) Eos # (Auto) Seg Neutrophils % Seg Neuts % (Manual) Lymphocytes % (Manual) Seg Neutrophils # Seg Neutrophils # Man Lymphocytes # (Manual) Monocytes % (Manual) Eosinophils % (Manual) Monocytes # (Manual) Eosinophils # (Manual) D-Dimer Heparin Anti-Xa Level ABG pH 7.286 L POC ABG pCO2 POC ABG pO2 ABG pO2 96.2 H ABG HCO3 ABG O2 Saturation ABG Base Excess -6.3 L ABG Hemoglobin 8.8 L ABG Oxyhemoglobin VBG pH ABG Sodium ABG Potassium ABG Glucose Oxyhemoglobin 94.8 L Sodium Potassium Chloride Carbon Dioxide BUN Creatinine Glucose POC Glucose 238 H 183 H Lactic Acid Calcium Ferritin AST Alkaline Phosphatase Magnesium Lactate Dehydrogenase Total Creatine Kinase CK-MB (CK-2) C-Reactive Protein Total Protein Albumin Troponin T HDL Cholesterol Arterial Blood Glucose Urine WBC (Auto) Urine Creatinine Urine Total Protein Phenytoin Coronavirus (PCR) Crossmatch 06/05/20 06/05/20 06/05/20 05:39 07:25 07:25 WBC RBC 2.97 L Hgb 8.7 L Hct 25.7 L MCHC RDW 16.0 H Lymph % (Auto) 8.8 L [place] % (Auto) 13.3 H Eos % (Auto) Lymph # 0.8 L [place] # 1.3 H Lymph # (Auto) [place] # (Auto) Eos # (Auto) Seg Neutrophils % 77.3 H Seg Neuts % (Manual) Lymphocytes % (Manual) Seg Neutrophils # Seg Neutrophils # Man Lymphocytes # (Manual) Monocytes % (Manual) Eosinophils % (Manual) Monocytes # (Manual) Eosinophils # (Manual) D-Dimer Heparin Anti-Xa Level ABG pH POC ABG pCO2 POC ABG pO2 ABG pO2 ABG HCO3 ABG O2 Saturation ABG Base Excess ABG Hemoglobin ABG Oxyhemoglobin VBG pH ABG Sodium ABG Potassium ABG Glucose Oxyhemoglobin Sodium 133 L Potassium Chloride Carbon Dioxide 17 L BUN 89 H Creatinine 2.8 H Glucose 176 H POC Glucose 149 H Lactic Acid Calcium 7.7 L Ferritin AST Alkaline Phosphatase Magnesium Lactate Dehydrogenase Total Creatine Kinase CK-MB (CK-2) C-Reactive Protein Total Protein 4.2 L Albumin 1.9 L Troponin T HDL Cholesterol Arterial Blood Glucose Urine WBC (Auto) Urine Creatinine Urine Total Protein Phenytoin Coronavirus (PCR) Crossmatch 06/05/20 06/05/20 06/05/20 07:25 12:05 15:41 WBC RBC Hgb Hct MCHC RDW Lymph % (Auto) [place] % (Auto) Eos % (Auto) Lymph # [place] # Lymph # (Auto) [place] # (Auto) Eos # (Auto) Seg Neutrophils % Seg Neuts % (Manual) Lymphocytes % (Manual) Seg Neutrophils # Seg Neutrophils # Man Lymphocytes # (Manual) Monocytes % (Manual) Eosinophils % (Manual) Monocytes # (Manual) Eosinophils # (Manual) D-Dimer Heparin Anti-Xa Level 0.76 H 0.81 H ABG pH POC ABG pCO2 POC ABG pO2 ABG pO2 ABG HCO3 ABG O2 Saturation ABG Base Excess ABG Hemoglobin ABG Oxyhemoglobin VBG pH ABG Sodium ABG Potassium ABG Glucose Oxyhemoglobin Sodium Potassium Chloride Carbon Dioxide BUN Creatinine Glucose POC Glucose 198 H Lactic Acid Calcium Ferritin AST Alkaline Phosphatase Magnesium Lactate Dehydrogenase Total Creatine Kinase CK-MB (CK-2) C-Reactive Protein Total Protein Albumin Troponin T HDL Cholesterol Arterial Blood Glucose Urine WBC (Auto) Urine Creatinine Urine Total Protein Phenytoin Coronavirus (PCR) Crossmatch 06/05/20 06/05/20 06/06/20 18:08 23:25 04:00 WBC RBC Hgb Hct MCHC RDW Lymph % (Auto) [place] % (Auto) Eos % (Auto) Lymph # [place] # Lymph # (Auto) [place] # (Auto) Eos # (Auto) Seg Neutrophils % Seg Neuts % (Manual) Lymphocytes % (Manual) Seg Neutrophils # Seg Neutrophils # Man Lymphocytes # (Manual) Monocytes % (Manual) Eosinophils % (Manual) Monocytes # (Manual) Eosinophils # (Manual) D-Dimer Heparin Anti-Xa Level ABG pH POC ABG pCO2 POC ABG pO2 ABG pO2 ABG HCO3 ABG O2 Saturation ABG Base Excess ABG Hemoglobin ABG Oxyhemoglobin VBG pH ABG Sodium ABG Potassium ABG Glucose Oxyhemoglobin Sodium Potassium Chloride Carbon Dioxide BUN Creatinine Glucose POC Glucose 223 H 169 H Lactic Acid Calcium Ferritin AST Alkaline Phosphatase Magnesium Lactate Dehydrogenase Total Creatine Kinase CK-MB (CK-2) C-Reactive Protein Total Protein Albumin Troponin T HDL Cholesterol Arterial Blood Glucose Urine WBC (Auto) 15.0 H Urine Creatinine Urine Total Protein Phenytoin Coronavirus (PCR) Crossmatch 06/06/20 06/06/20 06/06/20 04:00 05:33 05:38 WBC RBC 2.97 L Hgb 8.7 L Hct 26.8 L MCHC RDW 16.8 H Lymph % (Auto) [place] % (Auto) Eos % (Auto) Lymph # [place] # Lymph # (Auto) [place] # (Auto) Eos # (Auto) Seg Neutrophils % Seg Neuts % (Manual) Lymphocytes % (Manual) Seg Neutrophils # Seg Neutrophils # Man Lymphocytes # (Manual) Monocytes % (Manual) Eosinophils % (Manual) Monocytes # (Manual) Eosinophils # (Manual) D-Dimer Heparin Anti-Xa Level ABG pH POC ABG pCO2 POC ABG pO2 ABG pO2 ABG HCO3 ABG O2 Saturation ABG Base Excess ABG Hemoglobin ABG Oxyhemoglobin VBG pH ABG Sodium ABG Potassium ABG Glucose Oxyhemoglobin Sodium Potassium Chloride Carbon Dioxide BUN Creatinine Glucose POC Glucose 186 H Lactic Acid Calcium Ferritin AST Alkaline Phosphatase Magnesium Lactate Dehydrogenase Total Creatine Kinase CK-MB (CK-2) C-Reactive Protein Total Protein Albumin Troponin T HDL Cholesterol Arterial Blood Glucose Urine WBC (Auto) Urine Creatinine 82.2 H Urine Total Protein 196 H Phenytoin Coronavirus (PCR) Crossmatch 06/06/20 06/06/20 06/06/20 05:38 12:25 17:03 WBC RBC Hgb Hct MCHC RDW Lymph % (Auto) [place] % (Auto) Eos % (Auto) Lymph # [place] # Lymph # (Auto) [place] # (Auto) Eos # (Auto) Seg Neutrophils % Seg Neuts % (Manual) Lymphocytes % (Manual) Seg Neutrophils # Seg Neutrophils # Man Lymphocytes # (Manual) Monocytes % (Manual) Eosinophils % (Manual) Monocytes # (Manual) Eosinophils # (Manual) D-Dimer Heparin Anti-Xa Level ABG pH POC ABG pCO2 POC ABG pO2 ABG pO2 ABG HCO3 ABG O2 Saturation ABG Base Excess ABG Hemoglobin ABG Oxyhemoglobin VBG pH ABG Sodium ABG Potassium ABG Glucose Oxyhemoglobin Sodium 134 L Potassium 5.2 H Chloride Carbon Dioxide 18 L BUN 97 H Creatinine 2.5 H Glucose 193 H POC Glucose 239 H 252 H Lactic Acid Calcium 7.5 L Ferritin AST Alkaline Phosphatase Magnesium Lactate Dehydrogenase Total Creatine Kinase CK-MB (CK-2) C-Reactive Protein Total Protein 4.1 L Albumin 1.9 L Troponin T HDL Cholesterol Arterial Blood Glucose Urine WBC (Auto) Urine Creatinine Urine Total Protein Phenytoin Coronavirus (PCR) Crossmatch 06/07/20 06/07/20 06/07/20 00:16 01:49 04:00 WBC RBC 2.91 L Hgb 8.4 L Hct 25.0 L MCHC RDW 16.1 H Lymph % (Auto) 5.7 L [place] % (Auto) 10.5 H Eos % (Auto) Lymph # 0.6 L [place] # 1.1 H Lymph # (Auto) [place] # (Auto) Eos # (Auto) Seg Neutrophils % 83.6 H Seg Neuts % (Manual) Lymphocytes % (Manual) Seg Neutrophils # 9.1 H Seg Neutrophils # Man Lymphocytes # (Manual) Monocytes % (Manual) Eosinophils % (Manual) Monocytes # (Manual) Eosinophils # (Manual) D-Dimer Heparin Anti-Xa Level 0.26 L ABG pH POC ABG pCO2 POC ABG pO2 ABG pO2 ABG HCO3 ABG O2 Saturation ABG Base Excess ABG Hemoglobin ABG Oxyhemoglobin VBG pH ABG Sodium ABG Potassium ABG Glucose Oxyhemoglobin Sodium Potassium Chloride Carbon Dioxide BUN Creatinine Glucose POC Glucose 173 H Lactic Acid Calcium Ferritin AST Alkaline Phosphatase Magnesium Lactate Dehydrogenase Total Creatine Kinase CK-MB (CK-2) C-Reactive Protein Total Protein Albumin Troponin T HDL Cholesterol Arterial Blood Glucose Urine WBC (Auto) Urine Creatinine Urine Total Protein Phenytoin Coronavirus (PCR) Crossmatch 06/07/20 06/07/20 06/07/20 04:00 04:54 05:51 WBC RBC Hgb Hct MCHC RDW Lymph % (Auto) [place] % (Auto) Eos % (Auto) Lymph # [place] # Lymph # (Auto) [place] # (Auto) Eos # (Auto) Seg Neutrophils % Seg Neuts % (Manual) Lymphocytes % (Manual) Seg Neutrophils # Seg Neutrophils # Man Lymphocytes # (Manual) Monocytes % (Manual) Eosinophils % (Manual) Monocytes # (Manual) Eosinophils # (Manual) D-Dimer Heparin Anti-Xa Level ABG pH 7.317 L POC ABG pCO2 POC ABG pO2 ABG pO2 71.4 L ABG HCO3 ABG O2 Saturation 94.3 L ABG Base Excess -4.8 L ABG Hemoglobin 7.1 L ABG Oxyhemoglobin VBG pH ABG Sodium ABG Potassium ABG Glucose Oxyhemoglobin 92.2 L Sodium 133 L Potassium Chloride Carbon Dioxide 18 L BUN 100 H Creatinine 2.5 H Glucose 158 H POC Glucose 168 H Lactic Acid Calcium 7.6 L Ferritin AST Alkaline Phosphatase Magnesium Lactate Dehydrogenase Total Creatine Kinase CK-MB (CK-2) C-Reactive Protein Total Protein 4.7 L Albumin 2.0 L Troponin T HDL Cholesterol Arterial Blood Glucose Urine WBC (Auto) Urine Creatinine Urine Total Protein Phenytoin Coronavirus (PCR) Crossmatch 06/07/20 06/07/20 06/07/20 12:03 17:17 20:10 WBC RBC Hgb Hct MCHC RDW Lymph % (Auto) [place] % (Auto) Eos % (Auto) Lymph # [place] # Lymph # (Auto) [place] # (Auto) Eos # (Auto) Seg Neutrophils % Seg Neuts % (Manual) Lymphocytes % (Manual) Seg Neutrophils # Seg Neutrophils # Man Lymphocytes # (Manual) Monocytes % (Manual) Eosinophils % (Manual) Monocytes # (Manual) Eosinophils # (Manual) D-Dimer Heparin Anti-Xa Level 0.17 L ABG pH POC ABG pCO2 POC ABG pO2 ABG pO2 ABG HCO3 ABG O2 Saturation ABG Base Excess ABG Hemoglobin ABG Oxyhemoglobin VBG pH ABG Sodium ABG Potassium ABG Glucose Oxyhemoglobin Sodium Potassium Chloride Carbon Dioxide BUN Creatinine Glucose POC Glucose 276 H 281 H Lactic Acid Calcium Ferritin AST Alkaline Phosphatase Magnesium Lactate Dehydrogenase Total Creatine Kinase CK-MB (CK-2) C-Reactive Protein Total Protein Albumin Troponin T HDL Cholesterol Arterial Blood Glucose Urine WBC (Auto) Urine Creatinine Urine Total Protein Phenytoin Coronavirus (PCR) Crossmatch 06/08/20 06/08/20 06/08/20 00:02 04:47 04:47 WBC 16.4 H RBC 3.07 L Hgb 8.6 L Hct 26.5 L MCHC RDW 16.3 H Lymph % (Auto) [place] % (Auto) Eos % (Auto) Lymph # [place] # Lymph # (Auto) [place] # (Auto) Eos # (Auto) Seg Neutrophils % Seg Neuts % (Manual) 90.0 H Lymphocytes % (Manual) 3.0 L Seg Neutrophils # Seg Neutrophils # Man 14.8 H Lymphocytes # (Manual) 0.5 L Monocytes % (Manual) Eosinophils % (Manual) Monocytes # (Manual) 1.1 H Eosinophils # (Manual) D-Dimer Heparin Anti-Xa Level ABG pH POC ABG pCO2 POC ABG pO2 ABG pO2 ABG HCO3 ABG O2 Saturation ABG Base Excess ABG Hemoglobin ABG Oxyhemoglobin VBG pH ABG Sodium ABG Potassium ABG Glucose Oxyhemoglobin Sodium 129 L Potassium Chloride 95.6 L Carbon Dioxide 17 L BUN 106 H Creatinine 2.5 H Glucose 213 H POC Glucose 242 H Lactic Acid Calcium 7.6 L Ferritin AST Alkaline Phosphatase Magnesium Lactate Dehydrogenase Total Creatine Kinase CK-MB (CK-2) C-Reactive Protein Total Protein 5.0 L Albumin 2.1 L Troponin T HDL Cholesterol Arterial Blood Glucose Urine WBC (Auto) Urine Creatinine Urine Total Protein Phenytoin Coronavirus (PCR) Crossmatch 06/08/20 06/08/20 06/08/20 05:40 11:55 17:54 WBC RBC Hgb Hct MCHC RDW Lymph % (Auto) [place] % (Auto) Eos % (Auto) Lymph # [place] # Lymph # (Auto) [place] # (Auto) Eos # (Auto) Seg Neutrophils % Seg Neuts % (Manual) Lymphocytes % (Manual) Seg Neutrophils # Seg Neutrophils # Man Lymphocytes # (Manual) Monocytes % (Manual) Eosinophils % (Manual) Monocytes # (Manual) Eosinophils # (Manual) D-Dimer Heparin Anti-Xa Level ABG pH POC ABG pCO2 POC ABG pO2 ABG pO2 ABG HCO3 ABG O2 Saturation ABG Base Excess ABG Hemoglobin ABG Oxyhemoglobin VBG pH ABG Sodium ABG Potassium ABG Glucose Oxyhemoglobin Sodium Potassium Chloride Carbon Dioxide BUN Creatinine Glucose POC Glucose 221 H 218 H 163 H Lactic Acid Calcium Ferritin AST Alkaline Phosphatase Magnesium Lactate Dehydrogenase Total Creatine Kinase CK-MB (CK-2) C-Reactive Protein Total Protein Albumin Troponin T HDL Cholesterol Arterial Blood Glucose Urine WBC (Auto) Urine Creatinine Urine Total Protein Phenytoin Coronavirus (PCR) Crossmatch 06/08/20 06/09/20 06/09/20 22:01 00:09 05:16 WBC 19.0 H RBC 3.35 L Hgb 9.2 L Hct 28.5 L MCHC RDW 16.3 H Lymph % (Auto) [place] % (Auto) Eos % (Auto) Lymph # [place] # Lymph # (Auto) [place] # (Auto) Eos # (Auto) Seg Neutrophils % Seg Neuts % (Manual) 85.0 H Lymphocytes % (Manual) 7.0 L Seg Neutrophils # Seg Neutrophils # Man 16.2 H Lymphocytes # (Manual) Monocytes % (Manual) Eosinophils % (Manual) Monocytes # (Manual) 1.3 H Eosinophils # (Manual) D-Dimer Heparin Anti-Xa Level ABG pH POC ABG pCO2 POC ABG pO2 ABG pO2 ABG HCO3 ABG O2 Saturation ABG Base Excess ABG Hemoglobin ABG Oxyhemoglobin VBG pH ABG Sodium ABG Potassium ABG Glucose Oxyhemoglobin Sodium Potassium Chloride Carbon Dioxide BUN Creatinine Glucose POC Glucose 182 H 150 H Lactic Acid Calcium Ferritin AST Alkaline Phosphatase Magnesium Lactate Dehydrogenase Total Creatine Kinase CK-MB (CK-2) C-Reactive Protein Total Protein Albumin Troponin T HDL Cholesterol Arterial Blood Glucose Urine WBC (Auto) Urine Creatinine Urine Total Protein Phenytoin Coronavirus (PCR) Crossmatch 06/09/20 06/09/20 06/09/20 05:16 05:24 11:29 WBC RBC Hgb Hct MCHC RDW Lymph % (Auto) [place] % (Auto) Eos % (Auto) Lymph # [place] # Lymph # (Auto) [place] # (Auto) Eos # (Auto) Seg Neutrophils % Seg Neuts % (Manual) Lymphocytes % (Manual) Seg Neutrophils # Seg Neutrophils # Man Lymphocytes # (Manual) Monocytes % (Manual) Eosinophils % (Manual) Monocytes # (Manual) Eosinophils # (Manual) D-Dimer Heparin Anti-Xa Level ABG pH POC ABG pCO2 POC ABG pO2 ABG pO2 ABG HCO3 ABG O2 Saturation ABG Base Excess ABG Hemoglobin ABG Oxyhemoglobin VBG pH ABG Sodium ABG Potassium ABG Glucose Oxyhemoglobin Sodium 133 L Potassium Chloride Carbon Dioxide 19 L BUN 109 H Creatinine 2.1 H Glucose 133 H POC Glucose 128 H 119 H Lactic Acid Calcium 7.7 L Ferritin AST Alkaline Phosphatase < 5 L Magnesium Lactate Dehydrogenase Total Creatine Kinase CK-MB (CK-2) C-Reactive Protein Total Protein 4.6 L Albumin < 0.2 L Troponin T HDL Cholesterol Arterial Blood Glucose Urine WBC (Auto) Urine Creatinine Urine Total Protein Phenytoin Coronavirus (PCR) Crossmatch 06/09/20 06/10/20 06/10/20 17:32 00:00 05:49 WBC RBC Hgb Hct MCHC RDW Lymph % (Auto) [place] % (Auto) Eos % (Auto) Lymph # [place] # Lymph # (Auto) [place] # (Auto) Eos # (Auto) Seg Neutrophils % Seg Neuts % (Manual) Lymphocytes % (Manual) Seg Neutrophils # Seg Neutrophils # Man Lymphocytes # (Manual) Monocytes % (Manual) Eosinophils % (Manual) Monocytes # (Manual) Eosinophils # (Manual) D-Dimer Heparin Anti-Xa Level 0.19 L ABG pH POC ABG pCO2 POC ABG pO2 ABG pO2 ABG HCO3 ABG O2 Saturation ABG Base Excess ABG Hemoglobin ABG Oxyhemoglobin VBG pH ABG Sodium ABG Potassium ABG Glucose Oxyhemoglobin Sodium Potassium Chloride Carbon Dioxide BUN Creatinine Glucose POC Glucose 106 H 117 H Lactic Acid Calcium Ferritin AST Alkaline Phosphatase Magnesium Lactate Dehydrogenase Total Creatine Kinase CK-MB (CK-2) C-Reactive Protein Total Protein Albumin Troponin T HDL Cholesterol Arterial Blood Glucose Urine WBC (Auto) Urine Creatinine Urine Total Protein Phenytoin Coronavirus (PCR) Crossmatch 06/10/20 06/10/20 06/10/20 05:54 07:40 11:40 WBC RBC Hgb Hct MCHC RDW Lymph % (Auto) [place] % (Auto) Eos % (Auto) Lymph # [place] # Lymph # (Auto) [place] # (Auto) Eos # (Auto) Seg Neutrophils % Seg Neuts % (Manual) Lymphocytes % (Manual) Seg Neutrophils # Seg Neutrophils # Man Lymphocytes # (Manual) Monocytes % (Manual) Eosinophils % (Manual) Monocytes # (Manual) Eosinophils # (Manual) D-Dimer Heparin Anti-Xa Level ABG pH POC ABG pCO2 POC ABG pO2 ABG pO2 ABG HCO3 ABG O2 Saturation ABG Base Excess ABG Hemoglobin ABG Oxyhemoglobin VBG pH ABG Sodium ABG Potassium ABG Glucose Oxyhemoglobin Sodium 146 H D Potassium Chloride Carbon Dioxide 20 L BUN 99 H Creatinine 1.9 H Glucose 121 H POC Glucose 127 H 138 H Lactic Acid Calcium 8.2 L Ferritin AST Alkaline Phosphatase Magnesium Lactate Dehydrogenase Total Creatine Kinase CK-MB (CK-2) C-Reactive Protein Total Protein Albumin Troponin T HDL Cholesterol Arterial Blood Glucose Urine WBC (Auto) Urine Creatinine Urine Total Protein Phenytoin Coronavirus (PCR) Crossmatch 06/10/20 06/10/20 06/10/20 14:44 17:31 23:22 WBC RBC Hgb Hct MCHC RDW Lymph % (Auto) [place] % (Auto) Eos % (Auto) Lymph # [place] # Lymph # (Auto) [place] # (Auto) Eos # (Auto) Seg Neutrophils % Seg Neuts % (Manual) Lymphocytes % (Manual) Seg Neutrophils # Seg Neutrophils # Man Lymphocytes # (Manual) Monocytes % (Manual) Eosinophils % (Manual) Monocytes # (Manual) Eosinophils # (Manual) D-Dimer Heparin Anti-Xa Level 0.17 L ABG pH POC ABG pCO2 POC ABG pO2 ABG pO2 ABG HCO3 ABG O2 Saturation ABG Base Excess ABG Hemoglobin ABG Oxyhemoglobin VBG pH ABG Sodium ABG Potassium ABG Glucose Oxyhemoglobin Sodium Potassium Chloride Carbon Dioxide BUN Creatinine Glucose POC Glucose 128 H 114 H Lactic Acid Calcium Ferritin AST Alkaline Phosphatase Magnesium Lactate Dehydrogenase Total Creatine Kinase CK-MB (CK-2) C-Reactive Protein Total Protein Albumin Troponin T HDL Cholesterol Arterial Blood Glucose Urine WBC (Auto) Urine Creatinine Urine Total Protein Phenytoin Coronavirus (PCR) Crossmatch 06/11/20 06/11/20 06/11/20 00:22 03:45 03:45 WBC 14.6 H RBC 2.77 L Hgb 7.9 L Hct 24.3 L MCHC RDW 16.8 H Lymph % (Auto) 6.6 L [place] % (Auto) 8.5 H Eos % (Auto) Lymph # 1.0 L [place] # 1.2 H Lymph # (Auto) [place] # (Auto) Eos # (Auto) Seg Neutrophils % 82.9 H Seg Neuts % (Manual) Lymphocytes % (Manual) Seg Neutrophils # 12.1 H Seg Neutrophils # Man Lymphocytes # (Manual) Monocytes % (Manual) Eosinophils % (Manual) Monocytes # (Manual) Eosinophils # (Manual) D-Dimer Heparin Anti-Xa Level 0.24 L ABG pH POC ABG pCO2 POC ABG pO2 ABG pO2 ABG HCO3 ABG O2 Saturation ABG Base Excess ABG Hemoglobin ABG Oxyhemoglobin VBG pH ABG Sodium ABG Potassium ABG Glucose Oxyhemoglobin Sodium Potassium Chloride Carbon Dioxide 20 L BUN 88 H Creatinine 1.5 H Glucose 111 H POC Glucose Lactic Acid Calcium 8.2 L Ferritin AST Alkaline Phosphatase Magnesium Lactate Dehydrogenase Total Creatine Kinase CK-MB (CK-2) C-Reactive Protein Total Protein Albumin Troponin T HDL Cholesterol Arterial Blood Glucose Urine WBC (Auto) Urine Creatinine Urine Total Protein Phenytoin Coronavirus (PCR) Crossmatch 06/11/20 06/11/20 06/11/20 06:03 10:22 11:11 WBC RBC Hgb Hct MCHC RDW Lymph % (Auto) [place] % (Auto) Eos % (Auto) Lymph # [place] # Lymph # (Auto) [place] # (Auto) Eos # (Auto) Seg Neutrophils % Seg Neuts % (Manual) Lymphocytes % (Manual) Seg Neutrophils # Seg Neutrophils # Man Lymphocytes # (Manual) Monocytes % (Manual) Eosinophils % (Manual) Monocytes # (Manual) Eosinophils # (Manual) D-Dimer Heparin Anti-Xa Level 0.26 L ABG pH POC ABG pCO2 POC ABG pO2 ABG pO2 ABG HCO3 ABG O2 Saturation ABG Base Excess ABG Hemoglobin 9.6 L ABG Oxyhemoglobin VBG pH ABG Sodium ABG Potassium ABG Glucose Oxyhemoglobin Sodium Potassium Chloride Carbon Dioxide BUN Creatinine Glucose POC Glucose 114 H Lactic Acid Calcium Ferritin AST Alkaline Phosphatase Magnesium Lactate Dehydrogenase Total Creatine Kinase CK-MB (CK-2) C-Reactive Protein Total Protein Albumin Troponin T HDL Cholesterol Arterial Blood Glucose Urine WBC (Auto) Urine Creatinine Urine Total Protein Phenytoin Coronavirus (PCR) Crossmatch 06/11/20 06/11/20 06/12/20 12:24 17:24 00:21 WBC RBC Hgb Hct MCHC RDW Lymph % (Auto) [place] % (Auto) Eos % (Auto) Lymph # [place] # Lymph # (Auto) [place] # (Auto) Eos # (Auto) Seg Neutrophils % Seg Neuts % (Manual) Lymphocytes % (Manual) Seg Neutrophils # Seg Neutrophils # Man Lymphocytes # (Manual) Monocytes % (Manual) Eosinophils % (Manual) Monocytes # (Manual) Eosinophils # (Manual) D-Dimer Heparin Anti-Xa Level ABG pH POC ABG pCO2 POC ABG pO2 ABG pO2 ABG HCO3 ABG O2 Saturation ABG Base Excess ABG Hemoglobin ABG Oxyhemoglobin VBG pH ABG Sodium ABG Potassium ABG Glucose Oxyhemoglobin Sodium Potassium Chloride Carbon Dioxide BUN Creatinine Glucose POC Glucose 119 H 126 H 117 H Lactic Acid Calcium Ferritin AST Alkaline Phosphatase Magnesium Lactate Dehydrogenase Total Creatine Kinase CK-MB (CK-2) C-Reactive Protein Total Protein Albumin Troponin T HDL Cholesterol Arterial Blood Glucose Urine WBC (Auto) Urine Creatinine Urine Total Protein Phenytoin Coronavirus (PCR) Crossmatch 06/12/20 06/12/20 06/12/20 02:46 02:46 05:46 WBC 13.2 H RBC 2.83 L Hgb 8.3 L Hct 24.3 L MCHC RDW 16.6 H Lymph % (Auto) 6.2 L [place] % (Auto) 9.5 H Eos % (Auto) Lymph # 0.8 L [place] # 1.3 H Lymph # (Auto) [place] # (Auto) Eos # (Auto) Seg Neutrophils % 81.9 H Seg Neuts % (Manual) Lymphocytes % (Manual) Seg Neutrophils # 10.9 H Seg Neutrophils # Man Lymphocytes # (Manual) Monocytes % (Manual) Eosinophils % (Manual) Monocytes # (Manual) Eosinophils # (Manual) D-Dimer Heparin Anti-Xa Level ABG pH POC ABG pCO2 POC ABG pO2 ABG pO2 ABG HCO3 ABG O2 Saturation ABG Base Excess ABG Hemoglobin ABG Oxyhemoglobin VBG pH ABG Sodium ABG Potassium ABG Glucose Oxyhemoglobin Sodium Potassium 3.5 L Chloride Carbon Dioxide BUN 77 H Creatinine 1.3 H Glucose POC Glucose 132 H Lactic Acid Calcium 8.3 L Ferritin AST Alkaline Phosphatase Magnesium Lactate Dehydrogenase Total Creatine Kinase CK-MB (CK-2) C-Reactive Protein Total Protein Albumin Troponin T HDL Cholesterol Arterial Blood Glucose Urine WBC (Auto) Urine Creatinine Urine Total Protein Phenytoin Coronavirus (PCR) Crossmatch 06/12/20 06/12/20 06/12/20 09:20 12:16 17:48 WBC RBC Hgb Hct MCHC RDW Lymph % (Auto) [place] % (Auto) Eos % (Auto) Lymph # [place] # Lymph # (Auto) [place] # (Auto) Eos # (Auto) Seg Neutrophils % Seg Neuts % (Manual) Lymphocytes % (Manual) Seg Neutrophils # Seg Neutrophils # Man Lymphocytes # (Manual) Monocytes % (Manual) Eosinophils % (Manual) Monocytes # (Manual) Eosinophils # (Manual) D-Dimer Heparin Anti-Xa Level ABG pH POC ABG pCO2 POC ABG pO2 ABG pO2 91.1 H ABG HCO3 ABG O2 Saturation ABG Base Excess ABG Hemoglobin ABG Oxyhemoglobin VBG pH ABG Sodium ABG Potassium ABG Glucose Oxyhemoglobin 94.8 L Sodium Potassium Chloride Carbon Dioxide BUN Creatinine Glucose POC Glucose 167 H 182 H Lactic Acid Calcium Ferritin AST Alkaline Phosphatase Magnesium Lactate Dehydrogenase Total Creatine Kinase CK-MB (CK-2) C-Reactive Protein Total Protein Albumin Troponin T HDL Cholesterol Arterial Blood Glucose Urine WBC (Auto) Urine Creatinine Urine Total Protein Phenytoin Coronavirus (PCR) Crossmatch 06/13/20 06/13/20 06/13/20 00:08 05:37 09:09 WBC RBC Hgb Hct MCHC RDW Lymph % (Auto) [place] % (Auto) Eos % (Auto) Lymph # [place] # Lymph # (Auto) [place] # (Auto) Eos # (Auto) Seg Neutrophils % Seg Neuts % (Manual) Lymphocytes % (Manual) Seg Neutrophils # Seg Neutrophils # Man Lymphocytes # (Manual) Monocytes % (Manual) Eosinophils % (Manual) Monocytes # (Manual) Eosinophils # (Manual) D-Dimer Heparin Anti-Xa Level 0.86 H ABG pH POC ABG pCO2 POC ABG pO2 ABG pO2 ABG HCO3 ABG O2 Saturation ABG Base Excess ABG Hemoglobin ABG Oxyhemoglobin VBG pH ABG Sodium ABG Potassium ABG Glucose Oxyhemoglobin Sodium Potassium Chloride Carbon Dioxide BUN Creatinine Glucose POC Glucose 142 H 119 H Lactic Acid Calcium Ferritin AST Alkaline Phosphatase Magnesium Lactate Dehydrogenase Total Creatine Kinase CK-MB (CK-2) C-Reactive Protein Total Protein Albumin Troponin T HDL Cholesterol Arterial Blood Glucose Urine WBC (Auto) Urine Creatinine Urine Total Protein Phenytoin Coronavirus (PCR) Crossmatch 06/13/20 06/13/20 06/13/20 12:28 17:55 21:17 WBC RBC Hgb Hct MCHC RDW Lymph % (Auto) [place] % (Auto) Eos % (Auto) Lymph # [place] # Lymph # (Auto) [place] # (Auto) Eos # (Auto) Seg Neutrophils % Seg Neuts % (Manual) Lymphocytes % (Manual) Seg Neutrophils # Seg Neutrophils # Man Lymphocytes # (Manual) Monocytes % (Manual) Eosinophils % (Manual) Monocytes # (Manual) Eosinophils # (Manual) D-Dimer Heparin Anti-Xa Level ABG pH POC ABG pCO2 POC ABG pO2 ABG pO2 ABG HCO3 ABG O2 Saturation ABG Base Excess ABG Hemoglobin ABG Oxyhemoglobin VBG pH ABG Sodium ABG Potassium ABG Glucose Oxyhemoglobin Sodium Potassium Chloride Carbon Dioxide BUN 61 H Creatinine Glucose 131 H POC Glucose 165 H 174 H Lactic Acid Calcium Ferritin AST Alkaline Phosphatase Magnesium Lactate Dehydrogenase Total Creatine Kinase CK-MB (CK-2) C-Reactive Protein Total Protein Albumin Troponin T HDL Cholesterol Arterial Blood Glucose Urine WBC (Auto) Urine Creatinine Urine Total Protein Phenytoin Coronavirus (PCR) Crossmatch 06/13/20 06/13/20 06/14/20 21:17 23:50 05:34 WBC RBC Hgb Hct MCHC RDW Lymph % (Auto) [place] % (Auto) Eos % (Auto) Lymph # [place] # Lymph # (Auto) [place] # (Auto) Eos # (Auto) Seg Neutrophils % Seg Neuts % (Manual) Lymphocytes % (Manual) Seg Neutrophils # Seg Neutrophils # Man Lymphocytes # (Manual) Monocytes % (Manual) Eosinophils % (Manual) Monocytes # (Manual) Eosinophils # (Manual) D-Dimer Heparin Anti-Xa Level 0.72 H ABG pH POC ABG pCO2 POC ABG pO2 ABG pO2 ABG HCO3 ABG O2 Saturation ABG Base Excess ABG Hemoglobin ABG Oxyhemoglobin VBG pH ABG Sodium ABG Potassium ABG Glucose Oxyhemoglobin Sodium 146 H Potassium Chloride 107.6 H Carbon Dioxide BUN 61 H Creatinine 1.3 H Glucose 135 H POC Glucose 146 H Lactic Acid Calcium Ferritin AST Alkaline Phosphatase Magnesium Lactate Dehydrogenase Total Creatine Kinase CK-MB (CK-2) C-Reactive Protein Total Protein Albumin Troponin T HDL Cholesterol Arterial Blood Glucose Urine WBC (Auto) Urine Creatinine Urine Total Protein Phenytoin Coronavirus (PCR) Crossmatch 06/14/20 06/14/20 06/14/20 06:11 09:28 11:30 WBC RBC Hgb Hct MCHC RDW Lymph % (Auto) [place] % (Auto) Eos % (Auto) Lymph # [place] # Lymph # (Auto) [place] # (Auto) Eos # (Auto) Seg Neutrophils % Seg Neuts % (Manual) Lymphocytes % (Manual) Seg Neutrophils # Seg Neutrophils # Man Lymphocytes # (Manual) Monocytes % (Manual) Eosinophils % (Manual) Monocytes # (Manual) Eosinophils # (Manual) D-Dimer Heparin Anti-Xa Level 0.90 H ABG pH POC ABG pCO2 POC ABG pO2 ABG pO2 ABG HCO3 ABG O2 Saturation ABG Base Excess ABG Hemoglobin ABG Oxyhemoglobin VBG pH ABG Sodium ABG Potassium ABG Glucose Oxyhemoglobin Sodium Potassium Chloride Carbon Dioxide BUN Creatinine Glucose POC Glucose 141 H 186 H Lactic Acid Calcium Ferritin AST Alkaline Phosphatase Magnesium Lactate Dehydrogenase Total Creatine Kinase CK-MB (CK-2) C-Reactive Protein Total Protein Albumin Troponin T HDL Cholesterol Arterial Blood Glucose Urine WBC (Auto) Urine Creatinine Urine Total Protein Phenytoin Coronavirus (PCR) Crossmatch 06/14/20 06/14/20 06/14/20 16:07 18:16 23:51 WBC RBC Hgb Hct MCHC RDW Lymph % (Auto) [place] % (Auto) Eos % (Auto) Lymph # [place] # Lymph # (Auto) [place] # (Auto) Eos # (Auto) Seg Neutrophils % Seg Neuts % (Manual) Lymphocytes % (Manual) Seg Neutrophils # Seg Neutrophils # Man Lymphocytes # (Manual) Monocytes % (Manual) Eosinophils % (Manual) Monocytes # (Manual) Eosinophils # (Manual) D-Dimer Heparin Anti-Xa Level 0.82 H ABG pH POC ABG pCO2 POC ABG pO2 ABG pO2 ABG HCO3 ABG O2 Saturation ABG Base Excess ABG Hemoglobin ABG Oxyhemoglobin VBG pH ABG Sodium ABG Potassium ABG Glucose Oxyhemoglobin Sodium Potassium Chloride Carbon Dioxide BUN Creatinine Glucose POC Glucose 106 H 154 H Lactic Acid Calcium Ferritin AST Alkaline Phosphatase Magnesium Lactate Dehydrogenase Total Creatine Kinase CK-MB (CK-2) C-Reactive Protein Total Protein Albumin Troponin T HDL Cholesterol Arterial Blood Glucose Urine WBC (Auto) Urine Creatinine Urine Total Protein Phenytoin Coronavirus (PCR) Crossmatch 06/15/20 06/15/20 06/15/20 04:24 04:24 05:59 WBC RBC 2.75 L Hgb 7.9 L Hct 24.0 L MCHC RDW 16.4 H Lymph % (Auto) 12.9 L [place] % (Auto) 8.7 H Eos % (Auto) 4.6 H Lymph # 1.1 L [place] # Lymph # (Auto) [place] # (Auto) Eos # (Auto) Seg Neutrophils % 73.2 H Seg Neuts % (Manual) Lymphocytes % (Manual) Seg Neutrophils # Seg Neutrophils # Man Lymphocytes # (Manual) Monocytes % (Manual) Eosinophils % (Manual) Monocytes # (Manual) Eosinophils # (Manual) D-Dimer Heparin Anti-Xa Level ABG pH POC ABG pCO2 POC ABG pO2 ABG pO2 ABG HCO3 ABG O2 Saturation ABG Base Excess ABG Hemoglobin ABG Oxyhemoglobin VBG pH ABG Sodium ABG Potassium ABG Glucose Oxyhemoglobin Sodium Potassium 3.4 L Chloride Carbon Dioxide BUN 55 H Creatinine 1.3 H Glucose 142 H POC Glucose 131 H Lactic Acid Calcium Ferritin AST Alkaline Phosphatase Magnesium Lactate Dehydrogenase Total Creatine Kinase CK-MB (CK-2) C-Reactive Protein Total Protein Albumin Troponin T HDL Cholesterol Arterial Blood Glucose Urine WBC (Auto) Urine Creatinine Urine Total Protein Phenytoin Coronavirus (PCR) Crossmatch 06/15/20 06/15/20 06/16/20 12:33 17:07 00:22 WBC RBC Hgb Hct MCHC RDW Lymph % (Auto) [place] % (Auto) Eos % (Auto) Lymph # [place] # Lymph # (Auto) [place] # (Auto) Eos # (Auto) Seg Neutrophils % Seg Neuts % (Manual) Lymphocytes % (Manual) Seg Neutrophils # Seg Neutrophils # Man Lymphocytes # (Manual) Monocytes % (Manual) Eosinophils % (Manual) Monocytes # (Manual) Eosinophils # (Manual) D-Dimer Heparin Anti-Xa Level 0.21 L ABG pH POC ABG pCO2 POC ABG pO2 ABG pO2 ABG HCO3 ABG O2 Saturation ABG Base Excess ABG Hemoglobin ABG Oxyhemoglobin VBG pH ABG Sodium ABG Potassium ABG Glucose Oxyhemoglobin Sodium Potassium Chloride Carbon Dioxide BUN Creatinine Glucose POC Glucose 180 H 185 H Lactic Acid Calcium Ferritin AST Alkaline Phosphatase Magnesium Lactate Dehydrogenase Total Creatine Kinase CK-MB (CK-2) C-Reactive Protein Total Protein Albumin Troponin T HDL Cholesterol Arterial Blood Glucose Urine WBC (Auto) Urine Creatinine Urine Total Protein Phenytoin Coronavirus (PCR) Crossmatch 06/16/20 06/16/20 06/16/20 01:45 08:06 09:15 WBC RBC Hgb Hct MCHC RDW Lymph % (Auto) [place] % (Auto) Eos % (Auto) Lymph # [place] # Lymph # (Auto) [place] # (Auto) Eos # (Auto) Seg Neutrophils % Seg Neuts % (Manual) Lymphocytes % (Manual) Seg Neutrophils # Seg Neutrophils # Man Lymphocytes # (Manual) Monocytes % (Manual) Eosinophils % (Manual) Monocytes # (Manual) Eosinophils # (Manual) D-Dimer Heparin Anti-Xa Level ABG pH POC ABG pCO2 POC ABG pO2 ABG pO2 ABG HCO3 ABG O2 Saturation ABG Base Excess ABG Hemoglobin ABG Oxyhemoglobin VBG pH ABG Sodium ABG Potassium ABG Glucose Oxyhemoglobin Sodium Potassium Chloride Carbon Dioxide BUN 49 H Creatinine Glucose 154 H POC Glucose 140 H 171 H Lactic Acid Calcium Ferritin AST Alkaline Phosphatase Magnesium Lactate Dehydrogenase Total Creatine Kinase CK-MB (CK-2) C-Reactive Protein Total Protein Albumin Troponin T HDL Cholesterol Arterial Blood Glucose Urine WBC (Auto) Urine Creatinine Urine Total Protein Phenytoin Coronavirus (PCR) Crossmatch 06/16/20 06/16/20 06/16/20 10:46 12:33 17:54 WBC RBC Hgb Hct MCHC RDW Lymph % (Auto) [place] % (Auto) Eos % (Auto) Lymph # [place] # Lymph # (Auto) [place] # (Auto) Eos # (Auto) Seg Neutrophils % Seg Neuts % (Manual) Lymphocytes % (Manual) Seg Neutrophils # Seg Neutrophils # Man Lymphocytes # (Manual) Monocytes % (Manual) Eosinophils % (Manual) Monocytes # (Manual) Eosinophils # (Manual) D-Dimer Heparin Anti-Xa Level 0.12 L ABG pH POC ABG pCO2 POC ABG pO2 ABG pO2 ABG HCO3 ABG O2 Saturation ABG Base Excess ABG Hemoglobin ABG Oxyhemoglobin VBG pH ABG Sodium ABG Potassium ABG Glucose Oxyhemoglobin Sodium Potassium Chloride Carbon Dioxide BUN Creatinine Glucose POC Glucose 166 H 151 H Lactic Acid Calcium Ferritin AST Alkaline Phosphatase Magnesium Lactate Dehydrogenase Total Creatine Kinase CK-MB (CK-2) C-Reactive Protein Total Protein Albumin Troponin T HDL Cholesterol Arterial Blood Glucose Urine WBC (Auto) Urine Creatinine Urine Total Protein Phenytoin Coronavirus (PCR) Crossmatch 06/16/20 06/17/20 06/17/20 18:47 00:00 02:19 WBC RBC Hgb Hct MCHC RDW Lymph % (Auto) [place] % (Auto) Eos % (Auto) Lymph # [place] # Lymph # (Auto) [place] # (Auto) Eos # (Auto) Seg Neutrophils % Seg Neuts % (Manual) Lymphocytes % (Manual) Seg Neutrophils # Seg Neutrophils # Man Lymphocytes # (Manual) Monocytes % (Manual) Eosinophils % (Manual) Monocytes # (Manual) Eosinophils # (Manual) D-Dimer Heparin Anti-Xa Level 0.73 H 0.77 H ABG pH POC ABG pCO2 POC ABG pO2 ABG pO2 ABG HCO3 ABG O2 Saturation ABG Base Excess ABG Hemoglobin ABG Oxyhemoglobin VBG pH ABG Sodium ABG Potassium ABG Glucose Oxyhemoglobin Sodium Potassium Chloride Carbon Dioxide BUN Creatinine Glucose POC Glucose 139 H Lactic Acid Calcium Ferritin AST Alkaline Phosphatase Magnesium Lactate Dehydrogenase Total Creatine Kinase CK-MB (CK-2) C-Reactive Protein Total Protein Albumin Troponin T HDL Cholesterol Arterial Blood Glucose Urine WBC (Auto) Urine Creatinine Urine Total Protein Phenytoin Coronavirus (PCR) Crossmatch 06/17/20 06/17/20 06/17/20 06:07 11:42 16:43 WBC RBC Hgb Hct MCHC RDW Lymph % (Auto) [place] % (Auto) Eos % (Auto) Lymph # [place] # Lymph # (Auto) [place] # (Auto) Eos # (Auto) Seg Neutrophils % Seg Neuts % (Manual) Lymphocytes % (Manual) Seg Neutrophils # Seg Neutrophils # Man Lymphocytes # (Manual) Monocytes % (Manual) Eosinophils % (Manual) Monocytes # (Manual) Eosinophils # (Manual) D-Dimer Heparin Anti-Xa Level 0.73 H ABG pH POC ABG pCO2 POC ABG pO2 ABG pO2 ABG HCO3 ABG O2 Saturation ABG Base Excess ABG Hemoglobin ABG Oxyhemoglobin VBG pH ABG Sodium ABG Potassium ABG Glucose Oxyhemoglobin Sodium Potassium Chloride Carbon Dioxide BUN Creatinine Glucose POC Glucose 169 H 169 H Lactic Acid Calcium Ferritin AST Alkaline Phosphatase Magnesium Lactate Dehydrogenase Total Creatine Kinase CK-MB (CK-2) C-Reactive Protein Total Protein Albumin Troponin T HDL Cholesterol Arterial Blood Glucose Urine WBC (Auto) Urine Creatinine Urine Total Protein Phenytoin Coronavirus (PCR) Crossmatch 06/17/20 06/17/20 06/17/20 18:18 23:08 23:16 WBC RBC Hgb Hct MCHC RDW Lymph % (Auto) [place] % (Auto) Eos % (Auto) Lymph # [place] # Lymph # (Auto) [place] # (Auto) Eos # (Auto) Seg Neutrophils % Seg Neuts % (Manual) Lymphocytes % (Manual) Seg Neutrophils # Seg Neutrophils # Man Lymphocytes # (Manual) Monocytes % (Manual) Eosinophils % (Manual) Monocytes # (Manual) Eosinophils # (Manual) D-Dimer Heparin Anti-Xa Level 0.71 H ABG pH POC ABG pCO2 POC ABG pO2 ABG pO2 ABG HCO3 ABG O2 Saturation ABG Base Excess ABG Hemoglobin ABG Oxyhemoglobin VBG pH ABG Sodium ABG Potassium ABG Glucose Oxyhemoglobin Sodium Potassium Chloride Carbon Dioxide BUN Creatinine Glucose POC Glucose 159 H 134 H Lactic Acid Calcium Ferritin AST Alkaline Phosphatase Magnesium Lactate Dehydrogenase Total Creatine Kinase CK-MB (CK-2) C-Reactive Protein Total Protein Albumin Troponin T HDL Cholesterol Arterial Blood Glucose Urine WBC (Auto) Urine Creatinine Urine Total Protein Phenytoin Coronavirus (PCR) Crossmatch 06/18/20 06/18/20 06/18/20 04:42 05:52 11:50 WBC RBC Hgb Hct MCHC RDW Lymph % (Auto) [place] % (Auto) Eos % (Auto) Lymph # [place] # Lymph # (Auto) [place] # (Auto) Eos # (Auto) Seg Neutrophils % Seg Neuts % (Manual) Lymphocytes % (Manual) Seg Neutrophils # Seg Neutrophils # Man Lymphocytes # (Manual) Monocytes % (Manual) Eosinophils % (Manual) Monocytes # (Manual) Eosinophils # (Manual) D-Dimer Heparin Anti-Xa Level ABG pH POC ABG pCO2 POC ABG pO2 ABG pO2 ABG HCO3 ABG O2 Saturation ABG Base Excess ABG Hemoglobin ABG Oxyhemoglobin VBG pH ABG Sodium ABG Potassium ABG Glucose Oxyhemoglobin Sodium Potassium Chloride Carbon Dioxide BUN 44 H Creatinine Glucose 115 H POC Glucose 171 H 167 H Lactic Acid Calcium Ferritin AST Alkaline Phosphatase Magnesium Lactate Dehydrogenase Total Creatine Kinase CK-MB (CK-2) C-Reactive Protein Total Protein Albumin Troponin T HDL Cholesterol Arterial Blood Glucose Urine WBC (Auto) Urine Creatinine Urine Total Protein Phenytoin Coronavirus (PCR) Crossmatch 06/18/20 06/19/20 06/19/20 23:46 05:48 07:52 WBC RBC Hgb Hct MCHC RDW Lymph % (Auto) [place] % (Auto) Eos % (Auto) Lymph # [place] # Lymph # (Auto) [place] # (Auto) Eos # (Auto) Seg Neutrophils % Seg Neuts % (Manual) Lymphocytes % (Manual) Seg Neutrophils # Seg Neutrophils # Man Lymphocytes # (Manual) Monocytes % (Manual) Eosinophils % (Manual) Monocytes # (Manual) Eosinophils # (Manual) D-Dimer Heparin Anti-Xa Level ABG pH POC ABG pCO2 POC ABG pO2 ABG pO2 ABG HCO3 ABG O2 Saturation ABG Base Excess ABG Hemoglobin ABG Oxyhemoglobin VBG pH ABG Sodium ABG Potassium ABG Glucose Oxyhemoglobin Sodium Potassium Chloride Carbon Dioxide BUN Creatinine Glucose POC Glucose 130 H 207 H 175 H Lactic Acid Calcium Ferritin AST Alkaline Phosphatase Magnesium Lactate Dehydrogenase Total Creatine Kinase CK-MB (CK-2) C-Reactive Protein Total Protein Albumin Troponin T HDL Cholesterol Arterial Blood Glucose Urine WBC (Auto) Urine Creatinine Urine Total Protein Phenytoin Coronavirus (PCR) Crossmatch 06/19/20 06/19/20 06/20/20 11:42 22:54 05:17 WBC RBC Hgb Hct MCHC RDW Lymph % (Auto) [place] % (Auto) Eos % (Auto) Lymph # [place] # Lymph # (Auto) [place] # (Auto) Eos # (Auto) Seg Neutrophils % Seg Neuts % (Manual) Lymphocytes % (Manual) Seg Neutrophils # Seg Neutrophils # Man Lymphocytes # (Manual) Monocytes % (Manual) Eosinophils % (Manual) Monocytes # (Manual) Eosinophils # (Manual) D-Dimer Heparin Anti-Xa Level ABG pH POC ABG pCO2 POC ABG pO2 ABG pO2 ABG HCO3 ABG O2 Saturation ABG Base Excess ABG Hemoglobin ABG Oxyhemoglobin VBG pH ABG Sodium ABG Potassium ABG Glucose Oxyhemoglobin Sodium Potassium Chloride Carbon Dioxide BUN Creatinine Glucose POC Glucose 166 H 135 H 218 H Lactic Acid Calcium Ferritin AST Alkaline Phosphatase Magnesium Lactate Dehydrogenase Total Creatine Kinase CK-MB (CK-2) C-Reactive Protein Total Protein Albumin Troponin T HDL Cholesterol Arterial Blood Glucose Urine WBC (Auto) Urine Creatinine Urine Total Protein Phenytoin Coronavirus (PCR) Crossmatch 06/20/20 06/20/20 06/20/20 12:04 16:25 16:35 WBC RBC Hgb Hct MCHC RDW Lymph % (Auto) [place] % (Auto) Eos % (Auto) Lymph # [place] # Lymph # (Auto) [place] # (Auto) Eos # (Auto) Seg Neutrophils % Seg Neuts % (Manual) Lymphocytes % (Manual) Seg Neutrophils # Seg Neutrophils # Man Lymphocytes # (Manual) Monocytes % (Manual) Eosinophils % (Manual) Monocytes # (Manual) Eosinophils # (Manual) D-Dimer Heparin Anti-Xa Level ABG pH POC ABG pCO2 POC ABG pO2 ABG pO2 59.6 L ABG HCO3 28.7 H ABG O2 Saturation 93.5 L ABG Base Excess 3.4 H ABG Hemoglobin 7.2 L ABG Oxyhemoglobin VBG pH ABG Sodium ABG Potassium ABG Glucose Oxyhemoglobin 91.3 L Sodium Potassium Chloride Carbon Dioxide BUN Creatinine Glucose POC Glucose 194 H 137 H Lactic Acid Calcium Ferritin AST Alkaline Phosphatase Magnesium Lactate Dehydrogenase Total Creatine Kinase CK-MB (CK-2) C-Reactive Protein Total Protein Albumin Troponin T HDL Cholesterol Arterial Blood Glucose Urine WBC (Auto) Urine Creatinine Urine Total Protein Phenytoin Coronavirus (PCR) Crossmatch 06/20/20 06/21/20 06/21/20 23:59 06:25 12:01 WBC RBC Hgb Hct MCHC RDW Lymph % (Auto) [place] % (Auto) Eos % (Auto) Lymph # [place] # Lymph # (Auto) [place] # (Auto) Eos # (Auto) Seg Neutrophils % Seg Neuts % (Manual) Lymphocytes % (Manual) Seg Neutrophils # Seg Neutrophils # Man Lymphocytes # (Manual) Monocytes % (Manual) Eosinophils % (Manual) Monocytes # (Manual) Eosinophils # (Manual) D-Dimer Heparin Anti-Xa Level ABG pH POC ABG pCO2 POC ABG pO2 ABG pO2 ABG HCO3 ABG O2 Saturation ABG Base Excess ABG Hemoglobin ABG Oxyhemoglobin VBG pH ABG Sodium ABG Potassium ABG Glucose Oxyhemoglobin Sodium Potassium Chloride Carbon Dioxide BUN Creatinine Glucose POC Glucose 156 H 177 H 195 H Lactic Acid Calcium Ferritin AST Alkaline Phosphatase Magnesium Lactate Dehydrogenase Total Creatine Kinase CK-MB (CK-2) C-Reactive Protein Total Protein Albumin Troponin T HDL Cholesterol Arterial Blood Glucose Urine WBC (Auto) Urine Creatinine Urine Total Protein Phenytoin Coronavirus (PCR) Crossmatch 06/21/20 06/21/20 06/22/20 17:04 21:51 05:06 WBC RBC Hgb Hct MCHC RDW Lymph % (Auto) [place] % (Auto) Eos % (Auto) Lymph # [place] # Lymph # (Auto) [place] # (Auto) Eos # (Auto) Seg Neutrophils % Seg Neuts % (Manual) Lymphocytes % (Manual) Seg Neutrophils # Seg Neutrophils # Man Lymphocytes # (Manual) Monocytes % (Manual) Eosinophils % (Manual) Monocytes # (Manual) Eosinophils # (Manual) D-Dimer Heparin Anti-Xa Level ABG pH POC ABG pCO2 POC ABG pO2 ABG pO2 ABG HCO3 ABG O2 Saturation ABG Base Excess ABG Hemoglobin ABG Oxyhemoglobin VBG pH ABG Sodium ABG Potassium ABG Glucose Oxyhemoglobin Sodium Potassium Chloride Carbon Dioxide BUN Creatinine Glucose POC Glucose 156 H 154 H 167 H Lactic Acid Calcium Ferritin AST Alkaline Phosphatase Magnesium Lactate Dehydrogenase Total Creatine Kinase CK-MB (CK-2) C-Reactive Protein Total Protein Albumin Troponin T HDL Cholesterol Arterial Blood Glucose Urine WBC (Auto) Urine Creatinine Urine Total Protein Phenytoin Coronavirus (PCR) Crossmatch 06/22/20 06/22/20 06/22/20 11:20 15:27 16:58 WBC RBC Hgb Hct MCHC RDW Lymph % (Auto) [place] % (Auto) Eos % (Auto) Lymph # [place] # Lymph # (Auto) [place] # (Auto) Eos # (Auto) Seg Neutrophils % Seg Neuts % (Manual) Lymphocytes % (Manual) Seg Neutrophils # Seg Neutrophils # Man Lymphocytes # (Manual) Monocytes % (Manual) Eosinophils % (Manual) Monocytes # (Manual) Eosinophils # (Manual) D-Dimer Heparin Anti-Xa Level ABG pH 7.206 L POC ABG pCO2 79.9 H POC ABG pO2 ABG pO2 ABG HCO3 ABG O2 Saturation ABG Base Excess ABG Hemoglobin 8.3 L ABG Oxyhemoglobin VBG pH ABG Sodium ABG Potassium ABG Glucose Oxyhemoglobin Sodium Potassium Chloride Carbon Dioxide BUN Creatinine Glucose POC Glucose 181 H 230 H Lactic Acid Calcium Ferritin AST Alkaline Phosphatase Magnesium Lactate Dehydrogenase Total Creatine Kinase CK-MB (CK-2) C-Reactive Protein Total Protein Albumin Troponin T HDL Cholesterol Arterial Blood Glucose Urine WBC (Auto) Urine Creatinine Urine Total Protein Phenytoin Coronavirus (PCR) Crossmatch 06/22/20 06/23/20 06/23/20 22:26 05:49 05:49 WBC RBC 2.58 L Hgb 7.4 L Hct 23.2 L MCHC RDW 17.0 H Lymph % (Auto) [place] % (Auto) 11.2 H Eos % (Auto) Lymph # 1.0 L [place] # Lymph # (Auto) [place] # (Auto) Eos # (Auto) Seg Neutrophils % Seg Neuts % (Manual) Lymphocytes % (Manual) Seg Neutrophils # Seg Neutrophils # Man Lymphocytes # (Manual) Monocytes % (Manual) Eosinophils % (Manual) Monocytes # (Manual) Eosinophils # (Manual) D-Dimer Heparin Anti-Xa Level ABG pH POC ABG pCO2 POC ABG pO2 ABG pO2 ABG HCO3 ABG O2 Saturation ABG Base Excess ABG Hemoglobin ABG Oxyhemoglobin VBG pH ABG Sodium ABG Potassium ABG Glucose Oxyhemoglobin Sodium Potassium Chloride Carbon Dioxide BUN 68 H Creatinine 2.4 H Glucose 198 H POC Glucose 195 H Lactic Acid Calcium Ferritin AST Alkaline Phosphatase Magnesium Lactate Dehydrogenase Total Creatine Kinase CK-MB (CK-2) C-Reactive Protein Total Protein Albumin Troponin T HDL Cholesterol Arterial Blood Glucose Urine WBC (Auto) Urine Creatinine Urine Total Protein Phenytoin Coronavirus (PCR) Crossmatch 06/23/20 06/23/20 06/23/20 05:50 12:29 12:34 WBC RBC Hgb Hct MCHC RDW Lymph % (Auto) [place] % (Auto) Eos % (Auto) Lymph # [place] # Lymph # (Auto) [place] # (Auto) Eos # (Auto) Seg Neutrophils % Seg Neuts % (Manual) Lymphocytes % (Manual) Seg Neutrophils # Seg Neutrophils # Man Lymphocytes # (Manual) Monocytes % (Manual) Eosinophils % (Manual) Monocytes # (Manual) Eosinophils # (Manual) D-Dimer Heparin Anti-Xa Level ABG pH POC ABG pCO2 54.7 H POC ABG pO2 68.8 L ABG pO2 ABG HCO3 ABG O2 Saturation ABG Base Excess ABG Hemoglobin 9.8 L ABG Oxyhemoglobin 92.6 L VBG pH ABG Sodium ABG Potassium ABG Glucose Oxyhemoglobin Sodium Potassium Chloride Carbon Dioxide BUN Creatinine Glucose POC Glucose 202 H 218 H Lactic Acid Calcium Ferritin AST Alkaline Phosphatase Magnesium Lactate Dehydrogenase Total Creatine Kinase CK-MB (CK-2) C-Reactive Protein Total Protein Albumin Troponin T HDL Cholesterol Arterial Blood Glucose Urine WBC (Auto) Urine Creatinine Urine Total Protein Phenytoin Coronavirus (PCR) Crossmatch 06/23/20 06/23/20 06/24/20 16:02 22:22 01:06 WBC RBC Hgb Hct MCHC RDW Lymph % (Auto) [place] % (Auto) Eos % (Auto) Lymph # [place] # Lymph # (Auto) [place] # (Auto) Eos # (Auto) Seg Neutrophils % Seg Neuts % (Manual) Lymphocytes % (Manual) Seg Neutrophils # Seg Neutrophils # Man Lymphocytes # (Manual) Monocytes % (Manual) Eosinophils % (Manual) Monocytes # (Manual) Eosinophils # (Manual) D-Dimer Heparin Anti-Xa Level ABG pH POC ABG pCO2 POC ABG pO2 ABG pO2 ABG HCO3 ABG O2 Saturation ABG Base Excess ABG Hemoglobin ABG Oxyhemoglobin VBG pH ABG Sodium ABG Potassium ABG Glucose Oxyhemoglobin Sodium Potassium Chloride Carbon Dioxide BUN Creatinine Glucose POC Glucose 190 H 166 H 171 H Lactic Acid Calcium Ferritin AST Alkaline Phosphatase Magnesium Lactate Dehydrogenase Total Creatine Kinase CK-MB (CK-2) C-Reactive Protein Total Protein Albumin Troponin T HDL Cholesterol Arterial Blood Glucose Urine WBC (Auto) Urine Creatinine Urine Total Protein Phenytoin Coronavirus (PCR) Crossmatch 06/24/20 06/24/20 06/24/20 04:48 05:35 11:48 WBC RBC Hgb Hct MCHC RDW Lymph % (Auto) [place] % (Auto) Eos % (Auto) Lymph # [place] # Lymph # (Auto) [place] # (Auto) Eos # (Auto) Seg Neutrophils % Seg Neuts % (Manual) Lymphocytes % (Manual) Seg Neutrophils # Seg Neutrophils # Man Lymphocytes # (Manual) Monocytes % (Manual) Eosinophils % (Manual) Monocytes # (Manual) Eosinophils # (Manual) D-Dimer Heparin Anti-Xa Level ABG pH POC ABG pCO2 POC ABG pO2 ABG pO2 ABG HCO3 ABG O2 Saturation ABG Base Excess ABG Hemoglobin ABG Oxyhemoglobin VBG pH ABG Sodium ABG Potassium ABG Glucose Oxyhemoglobin Sodium Potassium Chloride Carbon Dioxide BUN 75 H Creatinine 2.6 H Glucose 179 H POC Glucose 172 H 153 H Lactic Acid Calcium Ferritin AST Alkaline Phosphatase Magnesium Lactate Dehydrogenase Total Creatine Kinase CK-MB (CK-2) C-Reactive Protein Total Protein Albumin Troponin T HDL Cholesterol Arterial Blood Glucose Urine WBC (Auto) Urine Creatinine Urine Total Protein Phenytoin Coronavirus (PCR) Crossmatch 06/24/20 06/24/20 06/25/20 16:38 21:52 12:00 WBC RBC Hgb Hct MCHC RDW Lymph % (Auto) [place] % (Auto) Eos % (Auto) Lymph # [place] # Lymph # (Auto) [place] # (Auto) Eos # (Auto) Seg Neutrophils % Seg Neuts % (Manual) Lymphocytes % (Manual) Seg Neutrophils # Seg Neutrophils # Man Lymphocytes # (Manual) Monocytes % (Manual) Eosinophils % (Manual) Monocytes # (Manual) Eosinophils # (Manual) D-Dimer Heparin Anti-Xa Level ABG pH POC ABG pCO2 POC ABG pO2 ABG pO2 ABG HCO3 ABG O2 Saturation ABG Base Excess ABG Hemoglobin ABG Oxyhemoglobin VBG pH ABG Sodium ABG Potassium ABG Glucose Oxyhemoglobin Sodium Potassium Chloride Carbon Dioxide BUN Creatinine Glucose POC Glucose 123 H 115 H 203 H Lactic Acid Calcium Ferritin AST Alkaline Phosphatase Magnesium Lactate Dehydrogenase Total Creatine Kinase CK-MB (CK-2) C-Reactive Protein Total Protein Albumin Troponin T HDL Cholesterol Arterial Blood Glucose Urine WBC (Auto) Urine Creatinine Urine Total Protein Phenytoin Coronavirus (PCR) Crossmatch 06/25/20 06/25/20 06/25/20 15:43 16:37 23:02 WBC RBC Hgb Hct MCHC RDW Lymph % (Auto) [place] % (Auto) Eos % (Auto) Lymph # [place] # Lymph # (Auto) [place] # (Auto) Eos # (Auto) Seg Neutrophils % Seg Neuts % (Manual) Lymphocytes % (Manual) Seg Neutrophils # Seg Neutrophils # Man Lymphocytes # (Manual) Monocytes % (Manual) Eosinophils % (Manual) Monocytes # (Manual) Eosinophils # (Manual) D-Dimer Heparin Anti-Xa Level ABG pH POC ABG pCO2 POC ABG pO2 ABG pO2 ABG HCO3 ABG O2 Saturation ABG Base Excess ABG Hemoglobin ABG Oxyhemoglobin VBG pH ABG Sodium ABG Potassium ABG Glucose Oxyhemoglobin Sodium Potassium Chloride Carbon Dioxide BUN 71 H Creatinine 1.8 H Glucose 170 H POC Glucose 191 H 126 H Lactic Acid Calcium 8.2 L Ferritin AST Alkaline Phosphatase Magnesium Lactate Dehydrogenase Total Creatine Kinase CK-MB (CK-2) C-Reactive Protein Total Protein Albumin Troponin T HDL Cholesterol Arterial Blood Glucose Urine WBC (Auto) Urine Creatinine Urine Total Protein Phenytoin Coronavirus (PCR) Crossmatch 06/26/20 06/26/20 06/26/20 06:34 06:34 09:27 WBC RBC 2.41 L Hgb 6.9 L Hct 21.5 L MCHC RDW 16.7 H Lymph % (Auto) 10.9 L [place] % (Auto) 9.6 H Eos % (Auto) Lymph # 0.7 L [place] # Lymph # (Auto) [place] # (Auto) Eos # (Auto) Seg Neutrophils % 75.4 H Seg Neuts % (Manual) Lymphocytes % (Manual) Seg Neutrophils # Seg Neutrophils # Man Lymphocytes # (Manual) Monocytes % (Manual) Eosinophils % (Manual) Monocytes # (Manual) Eosinophils # (Manual) D-Dimer Heparin Anti-Xa Level ABG pH POC ABG pCO2 POC ABG pO2 ABG pO2 ABG HCO3 ABG O2 Saturation ABG Base Excess ABG Hemoglobin ABG Oxyhemoglobin VBG pH ABG Sodium ABG Potassium ABG Glucose Oxyhemoglobin Sodium Potassium Chloride Carbon Dioxide BUN 77 H Creatinine 1.9 H Glucose 190 H POC Glucose Lactic Acid Calcium Ferritin AST Alkaline Phosphatase Magnesium Lactate Dehydrogenase Total Creatine Kinase CK-MB (CK-2) C-Reactive Protein Total Protein Albumin Troponin T HDL Cholesterol Arterial Blood Glucose Urine WBC (Auto) Urine Creatinine Urine Total Protein Phenytoin Coronavirus (PCR) Crossmatch See Detail 06/26/20 06/26/20 06/26/20 12:15 16:28 17:28 WBC RBC Hgb Hct MCHC RDW Lymph % (Auto) [place] % (Auto) Eos % (Auto) Lymph # [place] # Lymph # (Auto) [place] # (Auto) Eos # (Auto) Seg Neutrophils % Seg Neuts % (Manual) Lymphocytes % (Manual) Seg Neutrophils # Seg Neutrophils # Man Lymphocytes # (Manual) Monocytes % (Manual) Eosinophils % (Manual) Monocytes # (Manual) Eosinophils # (Manual) D-Dimer Heparin Anti-Xa Level ABG pH POC ABG pCO2 POC ABG pO2 ABG pO2 ABG HCO3 ABG O2 Saturation ABG Base Excess ABG Hemoglobin ABG Oxyhemoglobin VBG pH ABG Sodium ABG Potassium ABG Glucose Oxyhemoglobin Sodium Potassium Chloride Carbon Dioxide BUN Creatinine Glucose POC Glucose 187 H 149 H 189 H Lactic Acid Calcium Ferritin AST Alkaline Phosphatase Magnesium Lactate Dehydrogenase Total Creatine Kinase CK-MB (CK-2) C-Reactive Protein Total Protein Albumin Troponin T HDL Cholesterol Arterial Blood Glucose Urine WBC (Auto) Urine Creatinine Urine Total Protein Phenytoin Coronavirus (PCR) Crossmatch 06/26/20 06/26/20 06/26/20 18:30 18:30 18:30 WBC RBC 2.87 L Hgb 8.2 L Hct 25.9 L MCHC RDW 17.8 H Lymph % (Auto) [place] % (Auto) Eos % (Auto) Lymph # [place] # Lymph # (Auto) [place] # (Auto) Eos # (Auto) Seg Neutrophils % Seg Neuts % (Manual) 83.0 H Lymphocytes % (Manual) 8.0 L Seg Neutrophils # Seg Neutrophils # Man Lymphocytes # (Manual) 0.6 L Monocytes % (Manual) Eosinophils % (Manual) Monocytes # (Manual) Eosinophils # (Manual) D-Dimer Heparin Anti-Xa Level ABG pH POC ABG pCO2 POC ABG pO2 ABG pO2 ABG HCO3 ABG O2 Saturation ABG Base Excess ABG Hemoglobin ABG Oxyhemoglobin VBG pH ABG Sodium ABG Potassium ABG Glucose Oxyhemoglobin Sodium Potassium Chloride Carbon Dioxide BUN 80 H Creatinine 2.1 H Glucose 260 H POC Glucose Lactic Acid 4.30 H* Calcium 8.3 L Ferritin AST Alkaline Phosphatase Magnesium Lactate Dehydrogenase Total Creatine Kinase CK-MB (CK-2) C-Reactive Protein Total Protein Albumin Troponin T HDL Cholesterol Arterial Blood Glucose Urine WBC (Auto) Urine Creatinine Urine Total Protein Phenytoin Coronavirus (PCR) Crossmatch 06/26/20 06/27/20 06/27/20 18:50 01:00 04:29 WBC RBC Hgb Hct MCHC RDW Lymph % (Auto) [place] % (Auto) Eos % (Auto) Lymph # [place] # Lymph # (Auto) [place] # (Auto) Eos # (Auto) Seg Neutrophils % Seg Neuts % (Manual) Lymphocytes % (Manual) Seg Neutrophils # Seg Neutrophils # Man Lymphocytes # (Manual) Monocytes % (Manual) Eosinophils % (Manual) Monocytes # (Manual) Eosinophils # (Manual) D-Dimer Heparin Anti-Xa Level ABG pH 7.296 L POC ABG pCO2 POC ABG pO2 ABG pO2 116.5 H 200.5 H ABG HCO3 28.4 H ABG O2 Saturation 99.3 H ABG Base Excess 3.7 H ABG Hemoglobin 5.6 L ABG Oxyhemoglobin VBG pH ABG Sodium ABG Potassium ABG Glucose Oxyhemoglobin Sodium Potassium Chloride Carbon Dioxide BUN Creatinine Glucose POC Glucose 123 H Lactic Acid Calcium Ferritin AST Alkaline Phosphatase Magnesium Lactate Dehydrogenase Total Creatine Kinase CK-MB (CK-2) C-Reactive Protein Total Protein Albumin Troponin T HDL Cholesterol Arterial Blood Glucose Urine WBC (Auto) Urine Creatinine Urine Total Protein Phenytoin Coronavirus (PCR) Crossmatch 06/27/20 06/27/20 06/27/20 05:00 05:00 05:00 WBC RBC 2.75 L Hgb 7.9 L Hct 24.3 L MCHC RDW 17.1 H Lymph % (Auto) 8.5 L [place] % (Auto) 12.6 H Eos % (Auto) Lymph # 0.7 L [place] # 1.0 H Lymph # (Auto) [place] # (Auto) Eos # (Auto) Seg Neutrophils % 77.5 H Seg Neuts % (Manual) Lymphocytes % (Manual) Seg Neutrophils # Seg Neutrophils # Man Lymphocytes # (Manual) Monocytes % (Manual) Eosinophils % (Manual) Monocytes # (Manual) Eosinophils # (Manual) D-Dimer Heparin Anti-Xa Level ABG pH POC ABG pCO2 POC ABG pO2 ABG pO2 ABG HCO3 ABG O2 Saturation ABG Base Excess ABG Hemoglobin ABG Oxyhemoglobin VBG pH ABG Sodium ABG Potassium ABG Glucose Oxyhemoglobin Sodium Potassium Chloride Carbon Dioxide BUN 80 H Creatinine 2.0 H Glucose 129 H POC Glucose Lactic Acid 0.60 L Calcium 7.9 L Ferritin AST Alkaline Phosphatase Magnesium Lactate Dehydrogenase Total Creatine Kinase CK-MB (CK-2) C-Reactive Protein Total Protein Albumin Troponin T HDL Cholesterol Arterial Blood Glucose Urine WBC (Auto) Urine Creatinine Urine Total Protein Phenytoin Coronavirus (PCR) Crossmatch 06/27/20 06/27/20 06/27/20 05:23 13:46 17:25 WBC RBC Hgb Hct MCHC RDW Lymph % (Auto) [place] % (Auto) Eos % (Auto) Lymph # [place] # Lymph # (Auto) [place] # (Auto) Eos # (Auto) Seg Neutrophils % Seg Neuts % (Manual) Lymphocytes % (Manual) Seg Neutrophils # Seg Neutrophils # Man Lymphocytes # (Manual) Monocytes % (Manual) Eosinophils % (Manual) Monocytes # (Manual) Eosinophils # (Manual) D-Dimer Heparin Anti-Xa Level ABG pH POC ABG pCO2 POC ABG pO2 ABG pO2 ABG HCO3 ABG O2 Saturation ABG Base Excess ABG Hemoglobin ABG Oxyhemoglobin VBG pH ABG Sodium ABG Potassium ABG Glucose Oxyhemoglobin Sodium Potassium Chloride Carbon Dioxide BUN Creatinine Glucose POC Glucose 109 H 158 H 162 H Lactic Acid Calcium Ferritin AST Alkaline Phosphatase Magnesium Lactate Dehydrogenase Total Creatine Kinase CK-MB (CK-2) C-Reactive Protein Total Protein Albumin Troponin T HDL Cholesterol Arterial Blood Glucose Urine WBC (Auto) Urine Creatinine Urine Total Protein Phenytoin Coronavirus (PCR) Crossmatch 06/27/20 06/27/20 06/28/20 18:43 23:46 04:05 WBC RBC Hgb 7.7 L Hct 22.1 L MCHC RDW Lymph % (Auto) [place] % (Auto) Eos % (Auto) Lymph # [place] # Lymph # (Auto) [place] # (Auto) Eos # (Auto) Seg Neutrophils % Seg Neuts % (Manual) Lymphocytes % (Manual) Seg Neutrophils # Seg Neutrophils # Man Lymphocytes # (Manual) Monocytes % (Manual) Eosinophils % (Manual) Monocytes # (Manual) Eosinophils # (Manual) D-Dimer Heparin Anti-Xa Level ABG pH POC ABG pCO2 POC ABG pO2 ABG pO2 102.7 H ABG HCO3 28.7 H ABG O2 Saturation ABG Base Excess 3.7 H ABG Hemoglobin ABG Oxyhemoglobin VBG pH ABG Sodium ABG Potassium ABG Glucose Oxyhemoglobin Sodium Potassium Chloride Carbon Dioxide BUN Creatinine Glucose POC Glucose 142 H Lactic Acid Calcium Ferritin AST Alkaline Phosphatase Magnesium Lactate Dehydrogenase Total Creatine Kinase CK-MB (CK-2) C-Reactive Protein Total Protein Albumin Troponin T HDL Cholesterol Arterial Blood Glucose Urine WBC (Auto) Urine Creatinine Urine Total Protein Phenytoin Coronavirus (PCR) Crossmatch 06/28/20 06/28/20 06/28/20 09:47 09:47 12:02 WBC RBC 2.53 L Hgb 7.4 L Hct 22.2 L MCHC RDW 16.8 H Lymph % (Auto) [place] % (Auto) 13.5 H Eos % (Auto) Lymph # 1.1 L [place] # 1.0 H Lymph # (Auto) [place] # (Auto) Eos # (Auto) Seg Neutrophils % Seg Neuts % (Manual) Lymphocytes % (Manual) Seg Neutrophils # Seg Neutrophils # Man Lymphocytes # (Manual) Monocytes % (Manual) Eosinophils % (Manual) Monocytes # (Manual) Eosinophils # (Manual) D-Dimer Heparin Anti-Xa Level ABG pH POC ABG pCO2 POC ABG pO2 ABG pO2 ABG HCO3 ABG O2 Saturation ABG Base Excess ABG Hemoglobin ABG Oxyhemoglobin VBG pH ABG Sodium ABG Potassium ABG Glucose Oxyhemoglobin Sodium Potassium Chloride Carbon Dioxide BUN 80 H Creatinine 1.5 H Glucose 139 H POC Glucose 169 H Lactic Acid Calcium 7.9 L Ferritin AST Alkaline Phosphatase Magnesium Lactate Dehydrogenase Total Creatine Kinase CK-MB (CK-2) C-Reactive Protein Total Protein 5.0 L Albumin 2.1 L Troponin T HDL Cholesterol Arterial Blood Glucose Urine WBC (Auto) Urine Creatinine Urine Total Protein Phenytoin Coronavirus (PCR) Crossmatch 06/28/20 06/28/20 06/28/20 12:30 12:30 17:24 WBC RBC 2.38 L Hgb 7.3 L Hct 20.9 L MCHC 35 H RDW 16.7 H Lymph % (Auto) [place] % (Auto) Eos % (Auto) Lymph # [place] # Lymph # (Auto) [place] # (Auto) Eos # (Auto) Seg Neutrophils % Seg Neuts % (Manual) Lymphocytes % (Manual) Seg Neutrophils # Seg Neutrophils # Man Lymphocytes # (Manual) Monocytes % (Manual) Eosinophils % (Manual) Monocytes # (Manual) Eosinophils # (Manual) D-Dimer Heparin Anti-Xa Level ABG pH POC ABG pCO2 POC ABG pO2 ABG pO2 ABG HCO3 ABG O2 Saturation ABG Base Excess ABG Hemoglobin ABG Oxyhemoglobin VBG pH ABG Sodium ABG Potassium ABG Glucose Oxyhemoglobin Sodium Potassium Chloride Carbon Dioxide BUN 74 H Creatinine 1.5 H Glucose 143 H POC Glucose 173 H Lactic Acid Calcium 7.5 L Ferritin AST Alkaline Phosphatase Magnesium Lactate Dehydrogenase Total Creatine Kinase CK-MB (CK-2) C-Reactive Protein Total Protein Albumin Troponin T HDL Cholesterol Arterial Blood Glucose Urine WBC (Auto) Urine Creatinine Urine Total Protein Phenytoin Coronavirus (PCR) Crossmatch 06/29/20 06/29/20 06/29/20 00:02 03:54 04:38 WBC RBC 2.55 L Hgb 7.3 L Hct 22.4 L MCHC RDW 16.4 H Lymph % (Auto) 13.3 L [place] % (Auto) 12.5 H Eos % (Auto) Lymph # 1.1 L [place] # 1.0 H Lymph # (Auto) [place] # (Auto) Eos # (Auto) Seg Neutrophils % Seg Neuts % (Manual) Lymphocytes % (Manual) Seg Neutrophils # Seg Neutrophils # Man Lymphocytes # (Manual) Monocytes % (Manual) Eosinophils % (Manual) Monocytes # (Manual) Eosinophils # (Manual) D-Dimer Heparin Anti-Xa Level ABG pH POC ABG pCO2 POC ABG pO2 ABG pO2 ABG HCO3 26.9 H ABG O2 Saturation ABG Base Excess ABG Hemoglobin 6.9 L ABG Oxyhemoglobin VBG pH ABG Sodium ABG Potassium ABG Glucose Oxyhemoglobin Sodium Potassium Chloride Carbon Dioxide BUN Creatinine Glucose POC Glucose 142 H Lactic Acid Calcium Ferritin AST Alkaline Phosphatase Magnesium Lactate Dehydrogenase Total Creatine Kinase CK-MB (CK-2) C-Reactive Protein Total Protein Albumin Troponin T HDL Cholesterol Arterial Blood Glucose Urine WBC (Auto) Urine Creatinine Urine Total Protein Phenytoin Coronavirus (PCR) Crossmatch 06/29/20 06/29/20 06/29/20 04:38 05:38 12:25 WBC RBC Hgb Hct MCHC RDW Lymph % (Auto) [place] % (Auto) Eos % (Auto) Lymph # [place] # Lymph # (Auto) [place] # (Auto) Eos # (Auto) Seg Neutrophils % Seg Neuts % (Manual) Lymphocytes % (Manual) Seg Neutrophils # Seg Neutrophils # Man Lymphocytes # (Manual) Monocytes % (Manual) Eosinophils % (Manual) Monocytes # (Manual) Eosinophils # (Manual) D-Dimer Heparin Anti-Xa Level ABG pH POC ABG pCO2 POC ABG pO2 ABG pO2 ABG HCO3 ABG O2 Saturation ABG Base Excess ABG Hemoglobin ABG Oxyhemoglobin VBG pH ABG Sodium ABG Potassium ABG Glucose Oxyhemoglobin Sodium Potassium Chloride 107.8 H Carbon Dioxide BUN 72 H Creatinine 1.4 H Glucose 127 H POC Glucose 122 H 138 H Lactic Acid Calcium 7.4 L Ferritin AST Alkaline Phosphatase Magnesium Lactate Dehydrogenase Total Creatine Kinase CK-MB (CK-2) C-Reactive Protein Total Protein Albumin Troponin T HDL Cholesterol Arterial Blood Glucose Urine WBC (Auto) Urine Creatinine Urine Total Protein Phenytoin Coronavirus (PCR) Crossmatch 06/29/20 06/29/20 06/29/20 14:45 14:45 14:45 WBC RBC Hgb Hct MCHC RDW Lymph % (Auto) [place] % (Auto) Eos % (Auto) Lymph # [place] # Lymph # (Auto) [place] # (Auto) Eos # (Auto) Seg Neutrophils % Seg Neuts % (Manual) Lymphocytes % (Manual) Seg Neutrophils # Seg Neutrophils # Man Lymphocytes # (Manual) Monocytes % (Manual) Eosinophils % (Manual) Monocytes # (Manual) Eosinophils # (Manual) D-Dimer 2310.15 H Heparin Anti-Xa Level ABG pH POC ABG pCO2 POC ABG pO2 ABG pO2 ABG HCO3 ABG O2 Saturation ABG Base Excess ABG Hemoglobin ABG Oxyhemoglobin VBG pH ABG Sodium ABG Potassium ABG Glucose Oxyhemoglobin Sodium Potassium Chloride Carbon Dioxide BUN Creatinine Glucose POC Glucose Lactic Acid Calcium Ferritin 223.6 H AST Alkaline Phosphatase Magnesium Lactate Dehydrogenase 367 H Total Creatine Kinase CK-MB (CK-2) C-Reactive Protein 3.60 H Total Protein Albumin Troponin T HDL Cholesterol Arterial Blood Glucose Urine WBC (Auto) Urine Creatinine Urine Total Protein Phenytoin Coronavirus (PCR) Crossmatch 06/29/20 06/29/20 06/29/20 18:27 23:35 Unknown WBC RBC Hgb Hct MCHC RDW Lymph % (Auto) [place] % (Auto) Eos % (Auto) Lymph # [place] # Lymph # (Auto) [place] # (Auto) Eos # (Auto) Seg Neutrophils % Seg Neuts % (Manual) Lymphocytes % (Manual) Seg Neutrophils # Seg Neutrophils # Man Lymphocytes # (Manual) Monocytes % (Manual) Eosinophils % (Manual) Monocytes # (Manual) Eosinophils # (Manual) D-Dimer Heparin Anti-Xa Level ABG pH POC ABG pCO2 POC ABG pO2 ABG pO2 ABG HCO3 ABG O2 Saturation ABG Base Excess ABG Hemoglobin ABG Oxyhemoglobin VBG pH ABG Sodium ABG Potassium ABG Glucose Oxyhemoglobin Sodium Potassium Chloride Carbon Dioxide BUN Creatinine Glucose POC Glucose 112 H 140 H Lactic Acid Calcium Ferritin AST Alkaline Phosphatase Magnesium Lactate Dehydrogenase Total Creatine Kinase CK-MB (CK-2) C-Reactive Protein Total Protein Albumin Troponin T HDL Cholesterol Arterial Blood Glucose Urine WBC (Auto) Urine Creatinine Urine Total Protein Phenytoin Coronavirus (PCR) Positive A Crossmatch 06/30/20 06/30/20 06/30/20 04:10 04:10 06:09 WBC RBC 2.44 L Hgb 7.1 L Hct 21.5 L MCHC RDW 16.6 H Lymph % (Auto) 11.0 L [place] % (Auto) 10.8 H Eos % (Auto) Lymph # 0.9 L [place] # 0.9 H Lymph # (Auto) [place] # (Auto) Eos # (Auto) Seg Neutrophils % 73.7 H Seg Neuts % (Manual) Lymphocytes % (Manual) Seg Neutrophils # Seg Neutrophils # Man Lymphocytes # (Manual) Monocytes % (Manual) Eosinophils % (Manual) Monocytes # (Manual) Eosinophils # (Manual) D-Dimer Heparin Anti-Xa Level ABG pH POC ABG pCO2 POC ABG pO2 ABG pO2 ABG HCO3 ABG O2 Saturation ABG Base Excess ABG Hemoglobin ABG Oxyhemoglobin VBG pH ABG Sodium ABG Potassium ABG Glucose Oxyhemoglobin Sodium Potassium Chloride 109.1 H Carbon Dioxide BUN 74 H Creatinine 1.3 H Glucose 191 H POC Glucose 187 H Lactic Acid Calcium 7.8 L Ferritin AST Alkaline Phosphatase Magnesium Lactate Dehydrogenase Total Creatine Kinase CK-MB (CK-2) C-Reactive Protein Total Protein Albumin Troponin T HDL Cholesterol Arterial Blood Glucose Urine WBC (Auto) Urine Creatinine Urine Total Protein Phenytoin Coronavirus (PCR) Crossmatch 06/30/20 06/30/20 06/30/20 12:04 17:43 23:41 WBC RBC Hgb Hct MCHC RDW Lymph % (Auto) [place] % (Auto) Eos % (Auto) Lymph # [place] # Lymph # (Auto) [place] # (Auto) Eos # (Auto) Seg Neutrophils % Seg Neuts % (Manual) Lymphocytes % (Manual) Seg Neutrophils # Seg Neutrophils # Man Lymphocytes # (Manual) Monocytes % (Manual) Eosinophils % (Manual) Monocytes # (Manual) Eosinophils # (Manual) D-Dimer Heparin Anti-Xa Level ABG pH POC ABG pCO2 POC ABG pO2 ABG pO2 ABG HCO3 ABG O2 Saturation ABG Base Excess ABG Hemoglobin ABG Oxyhemoglobin VBG pH ABG Sodium ABG Potassium ABG Glucose Oxyhemoglobin Sodium Potassium Chloride Carbon Dioxide BUN Creatinine Glucose POC Glucose 112 H 177 H 143 H Lactic Acid Calcium Ferritin AST Alkaline Phosphatase Magnesium Lactate Dehydrogenase Total Creatine Kinase CK-MB (CK-2) C-Reactive Protein Total Protein Albumin Troponin T HDL Cholesterol Arterial Blood Glucose Urine WBC (Auto) Urine Creatinine Urine Total Protein Phenytoin Coronavirus (PCR) Crossmatch 07/01/20 07/01/20 07/01/20 05:02 05:52 06:01 WBC 12.6 H RBC 2.95 L Hgb 8.2 L Hct 26.0 L MCHC RDW 16.9 H Lymph % (Auto) [place] % (Auto) Eos % (Auto) Lymph # [place] # Lymph # (Auto) [place] # (Auto) Eos # (Auto) Seg Neutrophils % Seg Neuts % (Manual) Lymphocytes % (Manual) Seg Neutrophils # Seg Neutrophils # Man 8.6 H Lymphocytes # (Manual) Monocytes % (Manual) Eosinophils % (Manual) 5.0 H Monocytes # (Manual) Eosinophils # (Manual) 0.6 H D-Dimer Heparin Anti-Xa Level ABG pH POC ABG pCO2 POC ABG pO2 ABG pO2 ABG HCO3 ABG O2 Saturation ABG Base Excess ABG Hemoglobin 8.2 L ABG Oxyhemoglobin VBG pH ABG Sodium ABG Potassium ABG Glucose Oxyhemoglobin Sodium Potassium Chloride Carbon Dioxide BUN Creatinine Glucose POC Glucose 129 H Lactic Acid Calcium Ferritin AST Alkaline Phosphatase Magnesium Lactate Dehydrogenase Total Creatine Kinase CK-MB (CK-2) C-Reactive Protein Total Protein Albumin Troponin T HDL Cholesterol Arterial Blood Glucose Urine WBC (Auto) Urine Creatinine Urine Total Protein Phenytoin Coronavirus (PCR) Crossmatch 07/01/20 07/01/20 07/01/20 06:01 06:01 06:08 WBC RBC Hgb Hct MCHC RDW Lymph % (Auto) [place] % (Auto) Eos % (Auto) Lymph # [place] # Lymph # (Auto) [place] # (Auto) Eos # (Auto) Seg Neutrophils % Seg Neuts % (Manual) Lymphocytes % (Manual) Seg Neutrophils # Seg Neutrophils # Man Lymphocytes # (Manual) Monocytes % (Manual) Eosinophils % (Manual) Monocytes # (Manual) Eosinophils # (Manual) D-Dimer Heparin Anti-Xa Level ABG pH POC ABG pCO2 POC ABG pO2 ABG pO2 ABG HCO3 ABG O2 Saturation ABG Base Excess ABG Hemoglobin ABG Oxyhemoglobin VBG pH ABG Sodium ABG Potassium ABG Glucose Oxyhemoglobin Sodium 147 H Potassium Chloride 108.0 H Carbon Dioxide BUN 71 H Creatinine 1.3 H Glucose 193 H POC Glucose 192 H Lactic Acid Calcium 8.1 L Ferritin AST Alkaline Phosphatase Magnesium Lactate Dehydrogenase Total Creatine Kinase 300 H CK-MB (CK-2) C-Reactive Protein Total Protein Albumin Troponin T 0.067 H HDL Cholesterol 61 H Arterial Blood Glucose Urine WBC (Auto) Urine Creatinine Urine Total Protein Phenytoin Coronavirus (PCR) Crossmatch 07/01/20 07/01/20 07/02/20 12:23 17:40 00:18 WBC RBC Hgb Hct MCHC RDW Lymph % (Auto) [place] % (Auto) Eos % (Auto) Lymph # [place] # Lymph # (Auto) [place] # (Auto) Eos # (Auto) Seg Neutrophils % Seg Neuts % (Manual) Lymphocytes % (Manual) Seg Neutrophils # Seg Neutrophils # Man Lymphocytes # (Manual) Monocytes % (Manual) Eosinophils % (Manual) Monocytes # (Manual) Eosinophils # (Manual) D-Dimer Heparin Anti-Xa Level ABG pH POC ABG pCO2 POC ABG pO2 ABG pO2 ABG HCO3 ABG O2 Saturation ABG Base Excess ABG Hemoglobin ABG Oxyhemoglobin VBG pH ABG Sodium ABG Potassium ABG Glucose Oxyhemoglobin Sodium Potassium Chloride Carbon Dioxide BUN Creatinine Glucose POC Glucose 111 H 135 H 145 H Lactic Acid Calcium Ferritin AST Alkaline Phosphatase Magnesium Lactate Dehydrogenase Total Creatine Kinase CK-MB (CK-2) C-Reactive Protein Total Protein Albumin Troponin T HDL Cholesterol Arterial Blood Glucose Urine WBC (Auto) Urine Creatinine Urine Total Protein Phenytoin Coronavirus (PCR) Crossmatch 07/02/20 07/02/20 07/02/20 04:11 04:23 05:54 WBC RBC Hgb Hct MCHC RDW Lymph % (Auto) [place] % (Auto) Eos % (Auto) Lymph # [place] # Lymph # (Auto) [place] # (Auto) Eos # (Auto) Seg Neutrophils % Seg Neuts % (Manual) Lymphocytes % (Manual) Seg Neutrophils # Seg Neutrophils # Man Lymphocytes # (Manual) Monocytes % (Manual) Eosinophils % (Manual) Monocytes # (Manual) Eosinophils # (Manual) D-Dimer Heparin Anti-Xa Level ABG pH POC ABG pCO2 POC ABG pO2 ABG pO2 ABG HCO3 ABG O2 Saturation ABG Base Excess ABG Hemoglobin 5.4 L ABG Oxyhemoglobin VBG pH ABG Sodium ABG Potassium ABG Glucose Oxyhemoglobin Sodium Potassium Chloride 108.6 H Carbon Dioxide BUN 72 H Creatinine Glucose 112 H POC Glucose 137 H Lactic Acid Calcium 7.8 L Ferritin AST Alkaline Phosphatase Magnesium Lactate Dehydrogenase Total Creatine Kinase CK-MB (CK-2) C-Reactive Protein Total Protein Albumin Troponin T HDL Cholesterol Arterial Blood Glucose Urine WBC (Auto) Urine Creatinine Urine Total Protein Phenytoin Coronavirus (PCR) Crossmatch 07/02/20 07/02/20 07/02/20 11:38 18:04 23:59 WBC RBC Hgb Hct MCHC RDW Lymph % (Auto) [place] % (Auto) Eos % (Auto) Lymph # [place] # Lymph # (Auto) [place] # (Auto) Eos # (Auto) Seg Neutrophils % Seg Neuts % (Manual) Lymphocytes % (Manual) Seg Neutrophils # Seg Neutrophils # Man Lymphocytes # (Manual) Monocytes % (Manual) Eosinophils % (Manual) Monocytes # (Manual) Eosinophils # (Manual) D-Dimer Heparin Anti-Xa Level ABG pH POC ABG pCO2 POC ABG pO2 ABG pO2 ABG HCO3 ABG O2 Saturation ABG Base Excess ABG Hemoglobin ABG Oxyhemoglobin VBG pH ABG Sodium ABG Potassium ABG Glucose Oxyhemoglobin Sodium Potassium Chloride Carbon Dioxide BUN Creatinine Glucose POC Glucose 128 H 135 H 156 H Lactic Acid Calcium Ferritin AST Alkaline Phosphatase Magnesium Lactate Dehydrogenase Total Creatine Kinase CK-MB (CK-2) C-Reactive Protein Total Protein Albumin Troponin T HDL Cholesterol Arterial Blood Glucose Urine WBC (Auto) Urine Creatinine Urine Total Protein Phenytoin Coronavirus (PCR) Crossmatch 07/03/20 07/03/20 07/03/20 03:49 06:00 11:31 WBC RBC Hgb Hct MCHC RDW Lymph % (Auto) [place] % (Auto) Eos % (Auto) Lymph # [place] # Lymph # (Auto) [place] # (Auto) Eos # (Auto) Seg Neutrophils % Seg Neuts % (Manual) Lymphocytes % (Manual) Seg Neutrophils # Seg Neutrophils # Man Lymphocytes # (Manual) Monocytes % (Manual) Eosinophils % (Manual) Monocytes # (Manual) Eosinophils # (Manual) D-Dimer Heparin Anti-Xa Level ABG pH POC ABG pCO2 POC ABG pO2 ABG pO2 121.0 H ABG HCO3 ABG O2 Saturation ABG Base Excess ABG Hemoglobin 8.5 L ABG Oxyhemoglobin VBG pH ABG Sodium ABG Potassium ABG Glucose Oxyhemoglobin Sodium Potassium Chloride Carbon Dioxide BUN Creatinine Glucose POC Glucose 135 H 141 H Lactic Acid Calcium Ferritin AST Alkaline Phosphatase Magnesium Lactate Dehydrogenase Total Creatine Kinase CK-MB (CK-2) C-Reactive Protein Total Protein Albumin Troponin T HDL Cholesterol Arterial Blood Glucose Urine WBC (Auto) Urine Creatinine Urine Total Protein Phenytoin Coronavirus (PCR) Crossmatch 07/03/20 07/03/20 07/03/20 16:00 16:07 17:40 WBC RBC Hgb Hct MCHC RDW Lymph % (Auto) [place] % (Auto) Eos % (Auto) Lymph # [place] # Lymph # (Auto) [place] # (Auto) Eos # (Auto) Seg Neutrophils % Seg Neuts % (Manual) Lymphocytes % (Manual) Seg Neutrophils # Seg Neutrophils # Man Lymphocytes # (Manual) Monocytes % (Manual) Eosinophils % (Manual) Monocytes # (Manual) Eosinophils # (Manual) D-Dimer Heparin Anti-Xa Level ABG pH 7.271 L POC ABG pCO2 POC ABG pO2 ABG pO2 126.9 H ABG HCO3 ABG O2 Saturation ABG Base Excess ABG Hemoglobin 8.2 L 8.1 L ABG Oxyhemoglobin VBG pH ABG Sodium 130.3 L ABG Potassium 4.9 H ABG Glucose 163 H Oxyhemoglobin Sodium Potassium Chloride Carbon Dioxide BUN Creatinine Glucose POC Glucose 120 H Lactic Acid Calcium Ferritin AST Alkaline Phosphatase Magnesium Lactate Dehydrogenase Total Creatine Kinase CK-MB (CK-2) C-Reactive Protein Total Protein Albumin Troponin T HDL Cholesterol Arterial Blood Glucose 163 H Urine WBC (Auto) Urine Creatinine Urine Total Protein Phenytoin Coronavirus (PCR) Crossmatch 07/04/20 07/04/20 07/04/20 05:49 11:54 18:00 WBC RBC Hgb Hct MCHC RDW Lymph % (Auto) [place] % (Auto) Eos % (Auto) Lymph # [place] # Lymph # (Auto) [place] # (Auto) Eos # (Auto) Seg Neutrophils % Seg Neuts % (Manual) Lymphocytes % (Manual) Seg Neutrophils # Seg Neutrophils # Man Lymphocytes # (Manual) Monocytes % (Manual) Eosinophils % (Manual) Monocytes # (Manual) Eosinophils # (Manual) D-Dimer Heparin Anti-Xa Level ABG pH POC ABG pCO2 POC ABG pO2 ABG pO2 ABG HCO3 ABG O2 Saturation ABG Base Excess ABG Hemoglobin ABG Oxyhemoglobin VBG pH ABG Sodium ABG Potassium ABG Glucose Oxyhemoglobin Sodium Potassium Chloride Carbon Dioxide BUN Creatinine Glucose POC Glucose 128 H 168 H 133 H Lactic Acid Calcium Ferritin AST Alkaline Phosphatase Magnesium Lactate Dehydrogenase Total Creatine Kinase CK-MB (CK-2) C-Reactive Protein Total Protein Albumin Troponin T HDL Cholesterol Arterial Blood Glucose Urine WBC (Auto) Urine Creatinine Urine Total Protein Phenytoin Coronavirus (PCR) Crossmatch 07/05/20 07/05/20 07/05/20 00:07 01:12 02:30 WBC RBC 2.35 L Hgb 6.9 L Hct 21.1 L MCHC RDW 16.8 H Lymph % (Auto) [place] % (Auto) Eos % (Auto) Lymph # [place] # Lymph # (Auto) [place] # (Auto) Eos # (Auto) Seg Neutrophils % Seg Neuts % (Manual) 74.0 H Lymphocytes % (Manual) 12.0 L Seg Neutrophils # Seg Neutrophils # Man 8.0 H Lymphocytes # (Manual) Monocytes % (Manual) 9.0 H Eosinophils % (Manual) Monocytes # (Manual) 1.0 H Eosinophils # (Manual) D-Dimer Heparin Anti-Xa Level ABG pH POC ABG pCO2 POC ABG pO2 ABG pO2 ABG HCO3 ABG O2 Saturation ABG Base Excess ABG Hemoglobin ABG Oxyhemoglobin VBG pH ABG Sodium ABG Potassium ABG Glucose Oxyhemoglobin Sodium Potassium Chloride Carbon Dioxide BUN Creatinine Glucose POC Glucose 121 H Lactic Acid Calcium Ferritin AST Alkaline Phosphatase Magnesium Lactate Dehydrogenase Total Creatine Kinase CK-MB (CK-2) C-Reactive Protein Total Protein Albumin Troponin T HDL Cholesterol Arterial Blood Glucose Urine WBC (Auto) Urine Creatinine Urine Total Protein Phenytoin Coronavirus (PCR) Crossmatch See Detail 07/05/20 07/05/20 07/05/20 12:09 13:05 18:04 WBC RBC Hgb Hct MCHC RDW Lymph % (Auto) [place] % (Auto) Eos % (Auto) Lymph # [place] # Lymph # (Auto) [place] # (Auto) Eos # (Auto) Seg Neutrophils % Seg Neuts % (Manual) Lymphocytes % (Manual) Seg Neutrophils # Seg Neutrophils # Man Lymphocytes # (Manual) Monocytes % (Manual) Eosinophils % (Manual) Monocytes # (Manual) Eosinophils # (Manual) D-Dimer Heparin Anti-Xa Level ABG pH 7.32 L POC ABG pCO2 POC ABG pO2 ABG pO2 78.3 L ABG HCO3 ABG O2 Saturation ABG Base Excess -2.6 L ABG Hemoglobin 7.3 L ABG Oxyhemoglobin VBG pH ABG Sodium ABG Potassium ABG Glucose Oxyhemoglobin Sodium Potassium Chloride Carbon Dioxide BUN Creatinine Glucose POC Glucose 132 H 160 H Lactic Acid Calcium Ferritin AST Alkaline Phosphatase Magnesium Lactate Dehydrogenase Total Creatine Kinase CK-MB (CK-2) C-Reactive Protein Total Protein Albumin Troponin T HDL Cholesterol Arterial Blood Glucose Urine WBC (Auto) Urine Creatinine Urine Total Protein Phenytoin Coronavirus (PCR) Crossmatch 07/05/20 07/05/20 07/05/20 23:13 23:13 23:43 WBC RBC 2.57 L Hgb 7.7 L Hct 23.0 L MCHC RDW 16.9 H Lymph % (Auto) [place] % (Auto) Eos % (Auto) Lymph # [place] # Lymph # (Auto) [place] # (Auto) Eos # (Auto) Seg Neutrophils % Seg Neuts % (Manual) Lymphocytes % (Manual) Seg Neutrophils # Seg Neutrophils # Man Lymphocytes # (Manual) Monocytes % (Manual) Eosinophils % (Manual) Monocytes # (Manual) Eosinophils # (Manual) D-Dimer Heparin Anti-Xa Level ABG pH POC ABG pCO2 POC ABG pO2 ABG pO2 ABG HCO3 ABG O2 Saturation ABG Base Excess ABG Hemoglobin ABG Oxyhemoglobin VBG pH ABG Sodium ABG Potassium ABG Glucose Oxyhemoglobin Sodium Potassium Chloride Carbon Dioxide 20 L BUN 80 H Creatinine 2.4 H D Glucose 124 H POC Glucose 121 H Lactic Acid Calcium 7.6 L Ferritin AST Alkaline Phosphatase Magnesium Lactate Dehydrogenase Total Creatine Kinase CK-MB (CK-2) C-Reactive Protein Total Protein Albumin Troponin T HDL Cholesterol Arterial Blood Glucose Urine WBC (Auto) Urine Creatinine Urine Total Protein Phenytoin Coronavirus (PCR) Crossmatch 07/06/20 07/06/20 07/06/20 13:20 14:48 17:28 WBC RBC Hgb Hct MCHC RDW Lymph % (Auto) [place] % (Auto) Eos % (Auto) Lymph # [place] # Lymph # (Auto) [place] # (Auto) Eos # (Auto) Seg Neutrophils % Seg Neuts % (Manual) Lymphocytes % (Manual) Seg Neutrophils # Seg Neutrophils # Man Lymphocytes # (Manual) Monocytes % (Manual) Eosinophils % (Manual) Monocytes # (Manual) Eosinophils # (Manual) D-Dimer Heparin Anti-Xa Level ABG pH POC ABG pCO2 POC ABG pO2 ABG pO2 ABG HCO3 ABG O2 Saturation ABG Base Excess ABG Hemoglobin ABG Oxyhemoglobin VBG pH ABG Sodium ABG Potassium ABG Glucose Oxyhemoglobin Sodium 136 L Potassium 5.5 H Chloride Carbon Dioxide 19 L BUN 82 H Creatinine 2.5 H Glucose 113 H POC Glucose 133 H Lactic Acid Calcium 7.7 L Ferritin AST Alkaline Phosphatase Magnesium Lactate Dehydrogenase Total Creatine Kinase CK-MB (CK-2) C-Reactive Protein Total Protein Albumin Troponin T HDL Cholesterol Arterial Blood Glucose Urine WBC (Auto) Urine Creatinine 33.3 H Urine Total Protein Phenytoin Coronavirus (PCR) Crossmatch 07/07/20 07/07/20 07/07/20 00:12 04:15 04:15 WBC RBC 2.28 L Hgb 6.8 L Hct 20.7 L MCHC RDW 16.8 H Lymph % (Auto) [place] % (Auto) Eos % (Auto) Lymph # [place] # Lymph # (Auto) [place] # (Auto) Eos # (Auto) Seg Neutrophils % Seg Neuts % (Manual) Lymphocytes % (Manual) 13.0 L Seg Neutrophils # Seg Neutrophils # Man Lymphocytes # (Manual) 1.0 L Monocytes % (Manual) 11.0 H Eosinophils % (Manual) Monocytes # (Manual) 0.9 H Eosinophils # (Manual) D-Dimer Heparin Anti-Xa Level ABG pH POC ABG pCO2 POC ABG pO2 ABG pO2 ABG HCO3 ABG O2 Saturation ABG Base Excess ABG Hemoglobin ABG Oxyhemoglobin VBG pH ABG Sodium ABG Potassium ABG Glucose Oxyhemoglobin Sodium Potassium Chloride Carbon Dioxide BUN Creatinine Glucose POC Glucose 154 H Lactic Acid Calcium Ferritin AST Alkaline Phosphatase Magnesium 2.50 H Lactate Dehydrogenase Total Creatine Kinase CK-MB (CK-2) C-Reactive Protein Total Protein Albumin Troponin T HDL Cholesterol Arterial Blood Glucose Urine WBC (Auto) Urine Creatinine Urine Total Protein Phenytoin Coronavirus (PCR) Crossmatch 07/07/20 07/07/20 07/07/20 05:31 12:31 13:22 WBC RBC Hgb Hct MCHC RDW Lymph % (Auto) [place] % (Auto) Eos % (Auto) Lymph # [place] # Lymph # (Auto) [place] # (Auto) Eos # (Auto) Seg Neutrophils % Seg Neuts % (Manual) Lymphocytes % (Manual) Seg Neutrophils # Seg Neutrophils # Man Lymphocytes # (Manual) Monocytes % (Manual) Eosinophils % (Manual) Monocytes # (Manual) Eosinophils # (Manual) D-Dimer Heparin Anti-Xa Level ABG pH POC ABG pCO2 POC ABG pO2 ABG pO2 ABG HCO3 ABG O2 Saturation ABG Base Excess ABG Hemoglobin ABG Oxyhemoglobin VBG pH ABG Sodium ABG Potassium ABG Glucose Oxyhemoglobin Sodium Potassium 5.6 H Chloride Carbon Dioxide BUN 86 H Creatinine 2.9 H Glucose 127 H POC Glucose 135 H 131 H Lactic Acid Calcium 8.1 L Ferritin AST Alkaline Phosphatase Magnesium Lactate Dehydrogenase Total Creatine Kinase CK-MB (CK-2) C-Reactive Protein Total Protein Albumin Troponin T HDL Cholesterol Arterial Blood Glucose Urine WBC (Auto) Urine Creatinine Urine Total Protein Phenytoin Coronavirus (PCR) Crossmatch 07/07/20 07/07/20 07/08/20 17:55 23:33 04:14 WBC RBC 3.28 L Hgb 9.7 L Hct 28.9 L D MCHC RDW 16.4 H Lymph % (Auto) 10.3 L [place] % (Auto) 10.0 H Eos % (Auto) Lymph # [place] # Lymph # (Auto) 1.1 L [place] # (Auto) 1.1 H Eos # (Auto) Seg Neutrophils % 77.2 H Seg Neuts % (Manual) Lymphocytes % (Manual) Seg Neutrophils # 8.2 H Seg Neutrophils # Man Lymphocytes # (Manual) Monocytes % (Manual) Eosinophils % (Manual) Monocytes # (Manual) Eosinophils # (Manual) D-Dimer Heparin Anti-Xa Level ABG pH POC ABG pCO2 POC ABG pO2 ABG pO2 ABG HCO3 ABG O2 Saturation ABG Base Excess ABG Hemoglobin ABG Oxyhemoglobin VBG pH ABG Sodium ABG Potassium ABG Glucose Oxyhemoglobin Sodium Potassium Chloride Carbon Dioxide BUN Creatinine Glucose POC Glucose 136 H 159 H Lactic Acid Calcium Ferritin AST Alkaline Phosphatase Magnesium Lactate Dehydrogenase Total Creatine Kinase CK-MB (CK-2) C-Reactive Protein Total Protein Albumin Troponin T HDL Cholesterol Arterial Blood Glucose Urine WBC (Auto) Urine Creatinine Urine Total Protein Phenytoin Coronavirus (PCR) Crossmatch 07/08/20 07/08/20 07/08/20 04:14 12:10 18:10 WBC RBC Hgb Hct MCHC RDW Lymph % (Auto) [place] % (Auto) Eos % (Auto) Lymph # [place] # Lymph # (Auto) [place] # (Auto) Eos # (Auto) Seg Neutrophils % Seg Neuts % (Manual) Lymphocytes % (Manual) Seg Neutrophils # Seg Neutrophils # Man Lymphocytes # (Manual) Monocytes % (Manual) Eosinophils % (Manual) Monocytes # (Manual) Eosinophils # (Manual) D-Dimer Heparin Anti-Xa Level ABG pH POC ABG pCO2 POC ABG pO2 ABG pO2 ABG HCO3 ABG O2 Saturation ABG Base Excess ABG Hemoglobin ABG Oxyhemoglobin VBG pH ABG Sodium ABG Potassium ABG Glucose Oxyhemoglobin Sodium 136 L Potassium Chloride Carbon Dioxide BUN 84 H Creatinine 2.8 H Glucose 109 H POC Glucose 108 H 125 H Lactic Acid Calcium 8.1 L Ferritin AST Alkaline Phosphatase Magnesium 2.50 H Lactate Dehydrogenase Total Creatine Kinase CK-MB (CK-2) C-Reactive Protein Total Protein Albumin Troponin T HDL Cholesterol Arterial Blood Glucose Urine WBC (Auto) Urine Creatinine Urine Total Protein Phenytoin Coronavirus (PCR) Crossmatch 07/08/20 07/09/20 07/09/20 23:50 05:39 11:57 WBC RBC Hgb Hct MCHC RDW Lymph % (Auto) [place] % (Auto) Eos % (Auto) Lymph # [place] # Lymph # (Auto) [place] # (Auto) Eos # (Auto) Seg Neutrophils % Seg Neuts % (Manual) Lymphocytes % (Manual) Seg Neutrophils # Seg Neutrophils # Man Lymphocytes # (Manual) Monocytes % (Manual) Eosinophils % (Manual) Monocytes # (Manual) Eosinophils # (Manual) D-Dimer Heparin Anti-Xa Level ABG pH POC ABG pCO2 POC ABG pO2 ABG pO2 ABG HCO3 ABG O2 Saturation ABG Base Excess ABG Hemoglobin ABG Oxyhemoglobin VBG pH ABG Sodium ABG Potassium ABG Glucose Oxyhemoglobin Sodium Potassium Chloride Carbon Dioxide BUN Creatinine Glucose POC Glucose 141 H 121 H 123 H Lactic Acid Calcium Ferritin AST Alkaline Phosphatase Magnesium Lactate Dehydrogenase Total Creatine Kinase CK-MB (CK-2) C-Reactive Protein Total Protein Albumin Troponin T HDL Cholesterol Arterial Blood Glucose Urine WBC (Auto) Urine Creatinine Urine Total Protein Phenytoin Coronavirus (PCR) Crossmatch 07/09/20 07/10/20 07/10/20 17:56 00:29 05:50 WBC RBC Hgb Hct MCHC RDW Lymph % (Auto) [place] % (Auto) Eos % (Auto) Lymph # [place] # Lymph # (Auto) [place] # (Auto) Eos # (Auto) Seg Neutrophils % Seg Neuts % (Manual) Lymphocytes % (Manual) Seg Neutrophils # Seg Neutrophils # Man Lymphocytes # (Manual) Monocytes % (Manual) Eosinophils % (Manual) Monocytes # (Manual) Eosinophils # (Manual) D-Dimer Heparin Anti-Xa Level ABG pH POC ABG pCO2 POC ABG pO2 ABG pO2 ABG HCO3 ABG O2 Saturation ABG Base Excess ABG Hemoglobin ABG Oxyhemoglobin VBG pH ABG Sodium ABG Potassium ABG Glucose Oxyhemoglobin Sodium Potassium Chloride Carbon Dioxide BUN Creatinine Glucose POC Glucose 119 H 122 H 124 H Lactic Acid Calcium Ferritin AST Alkaline Phosphatase Magnesium Lactate Dehydrogenase Total Creatine Kinase CK-MB (CK-2) C-Reactive Protein Total Protein Albumin Troponin T HDL Cholesterol Arterial Blood Glucose Urine WBC (Auto) Urine Creatinine Urine Total Protein Phenytoin Coronavirus (PCR) Crossmatch 07/10/20 07/10/20 07/10/20 10:41 10:41 12:25 WBC RBC 3.11 L Hgb 9.2 L Hct 27.6 L MCHC RDW 16.6 H Lymph % (Auto) [place] % (Auto) Eos % (Auto) Lymph # [place] # Lymph # (Auto) [place] # (Auto) Eos # (Auto) Seg Neutrophils % Seg Neuts % (Manual) 78.0 H Lymphocytes % (Manual) 11.0 L Seg Neutrophils # Seg Neutrophils # Man Lymphocytes # (Manual) 1.0 L Monocytes % (Manual) Eosinophils % (Manual) Monocytes # (Manual) Eosinophils # (Manual) D-Dimer Heparin Anti-Xa Level ABG pH POC ABG pCO2 POC ABG pO2 ABG pO2 ABG HCO3 ABG O2 Saturation ABG Base Excess ABG Hemoglobin ABG Oxyhemoglobin VBG pH ABG Sodium ABG Potassium ABG Glucose Oxyhemoglobin Sodium Potassium Chloride Carbon Dioxide BUN 85 H Creatinine 2.5 H Glucose 133 H POC Glucose 131 H Lactic Acid Calcium Ferritin AST Alkaline Phosphatase 131 H Magnesium Lactate Dehydrogenase Total Creatine Kinase CK-MB (CK-2) C-Reactive Protein Total Protein 5.2 L Albumin 1.6 L Troponin T HDL Cholesterol Arterial Blood Glucose Urine WBC (Auto) Urine Creatinine Urine Total Protein Phenytoin Coronavirus (PCR) Crossmatch 07/10/20 07/11/20 07/11/20 18:10 00:28 05:57 WBC RBC Hgb Hct MCHC RDW Lymph % (Auto) [place] % (Auto) Eos % (Auto) Lymph # [place] # Lymph # (Auto) [place] # (Auto) Eos # (Auto) Seg Neutrophils % Seg Neuts % (Manual) Lymphocytes % (Manual) Seg Neutrophils # Seg Neutrophils # Man Lymphocytes # (Manual) Monocytes % (Manual) Eosinophils % (Manual) Monocytes # (Manual) Eosinophils # (Manual) D-Dimer Heparin Anti-Xa Level ABG pH POC ABG pCO2 POC ABG pO2 ABG pO2 ABG HCO3 ABG O2 Saturation ABG Base Excess ABG Hemoglobin ABG Oxyhemoglobin VBG pH ABG Sodium ABG Potassium ABG Glucose Oxyhemoglobin Sodium Potassium Chloride Carbon Dioxide BUN Creatinine Glucose POC Glucose 134 H 140 H 148 H Lactic Acid Calcium Ferritin AST Alkaline Phosphatase Magnesium Lactate Dehydrogenase Total Creatine Kinase CK-MB (CK-2) C-Reactive Protein Total Protein Albumin Troponin T HDL Cholesterol Arterial Blood Glucose Urine WBC (Auto) Urine Creatinine Urine Total Protein Phenytoin Coronavirus (PCR) Crossmatch 07/11/20 07/11/20 07/11/20 12:14 17:28 23:49 WBC RBC Hgb Hct MCHC RDW Lymph % (Auto) [place] % (Auto) Eos % (Auto) Lymph # [place] # Lymph # (Auto) [place] # (Auto) Eos # (Auto) Seg Neutrophils % Seg Neuts % (Manual) Lymphocytes % (Manual) Seg Neutrophils # Seg Neutrophils # Man Lymphocytes # (Manual) Monocytes % (Manual) Eosinophils % (Manual) Monocytes # (Manual) Eosinophils # (Manual) D-Dimer Heparin Anti-Xa Level ABG pH POC ABG pCO2 POC ABG pO2 ABG pO2 ABG HCO3 ABG O2 Saturation ABG Base Excess ABG Hemoglobin ABG Oxyhemoglobin VBG pH ABG Sodium ABG Potassium ABG Glucose Oxyhemoglobin Sodium Potassium Chloride Carbon Dioxide BUN Creatinine Glucose POC Glucose 147 H 175 H 114 H Lactic Acid Calcium Ferritin AST Alkaline Phosphatase Magnesium Lactate Dehydrogenase Total Creatine Kinase CK-MB (CK-2) C-Reactive Protein Total Protein Albumin Troponin T HDL Cholesterol Arterial Blood Glucose Urine WBC (Auto) Urine Creatinine Urine Total Protein Phenytoin Coronavirus (PCR) Crossmatch 07/12/20 07/12/20 07/12/20 05:14 05:14 05:44 WBC RBC 2.78 L Hgb 8.5 L Hct 25.3 L MCHC RDW 16.7 H Lymph % (Auto) [place] % (Auto) Eos % (Auto) Lymph # [place] # Lymph # (Auto) [place] # (Auto) Eos # (Auto) Seg Neutrophils % Seg Neuts % (Manual) 81.0 H Lymphocytes % (Manual) 6.0 L Seg Neutrophils # Seg Neutrophils # Man Lymphocytes # (Manual) 0.6 L Monocytes % (Manual) 8.0 H Eosinophils % (Manual) Monocytes # (Manual) Eosinophils # (Manual) D-Dimer Heparin Anti-Xa Level ABG pH POC ABG pCO2 POC ABG pO2 ABG pO2 ABG HCO3 ABG O2 Saturation ABG Base Excess ABG Hemoglobin ABG Oxyhemoglobin VBG pH ABG Sodium ABG Potassium ABG Glucose Oxyhemoglobin Sodium Potassium Chloride Carbon Dioxide BUN 79 H Creatinine 2.2 H Glucose 131 H POC Glucose 116 H Lactic Acid Calcium Ferritin AST Alkaline Phosphatase Magnesium Lactate Dehydrogenase Total Creatine Kinase CK-MB (CK-2) C-Reactive Protein Total Protein Albumin Troponin T HDL Cholesterol Arterial Blood Glucose Urine WBC (Auto) Urine Creatinine Urine Total Protein Phenytoin Coronavirus (PCR) Crossmatch 07/12/20 07/12/2020 11:32 17:53 00:18 WBC RBC Hgb Hct MCHC RDW Lymph % (Auto) [place] % (Auto) Eos % (Auto) Lymph # [place] # Lymph # (Auto) [place] # (Auto) Eos # (Auto) Seg Neutrophils % Seg Neuts % (Manual) Lymphocytes % (Manual) Seg Neutrophils # Seg Neutrophils # Man Lymphocytes # (Manual) Monocytes % (Manual) Eosinophils % (Manual) Monocytes # (Manual) Eosinophils # (Manual) D-Dimer Heparin Anti-Xa Level ABG pH POC ABG pCO2 POC ABG pO2 ABG pO2 ABG HCO3 ABG O2 Saturation ABG Base Excess ABG Hemoglobin ABG Oxyhemoglobin VBG pH ABG Sodium ABG Potassium ABG Glucose Oxyhemoglobin Sodium Potassium Chloride Carbon Dioxide BUN Creatinine Glucose POC Glucose 132 H 155 H 162 H Lactic Acid Calcium Ferritin AST Alkaline Phosphatase Magnesium Lactate Dehydrogenase Total Creatine Kinase CK-MB (CK-2) C-Reactive Protein Total Protein Albumin Troponin T HDL Cholesterol Arterial Blood Glucose Urine WBC (Auto) Urine Creatinine Urine Total Protein Phenytoin Coronavirus (PCR) Crossmatch 07/13/20 07/13/20 07/13/20 04:53 04:53 06:14 WBC RBC 2.86 L Hgb 8.4 L Hct 25.7 L MCHC RDW 16.8 H Lymph % (Auto) [place] % (Auto) Eos % (Auto) Lymph # [place] # Lymph # (Auto) [place] # (Auto) Eos # (Auto) Seg Neutrophils % Seg Neuts % (Manual) 84.0 H Lymphocytes % (Manual) 7.0 L Seg Neutrophils # Seg Neutrophils # Man Lymphocytes # (Manual) 0.6 L Monocytes % (Manual) Eosinophils % (Manual) Monocytes # (Manual) Eosinophils # (Manual) D-Dimer Heparin Anti-Xa Level ABG pH POC ABG pCO2 POC ABG pO2 ABG pO2 ABG HCO3 ABG O2 Saturation ABG Base Excess ABG Hemoglobin ABG Oxyhemoglobin VBG pH ABG Sodium ABG Potassium ABG Glucose Oxyhemoglobin Sodium 136 L Potassium Chloride Carbon Dioxide BUN 78 H Creatinine 2.0 H Glucose 130 H POC Glucose 141 H Lactic Acid Calcium Ferritin AST Alkaline Phosphatase Magnesium Lactate Dehydrogenase Total Creatine Kinase CK-MB (CK-2) C-Reactive Protein Total Protein Albumin Troponin T HDL Cholesterol Arterial Blood Glucose Urine WBC (Auto) Urine Creatinine Urine Total Protein Phenytoin Coronavirus (PCR) Crossmatch 07/13/20 07/13/20 07/14/20 12:50 18:27 00:22 WBC RBC Hgb Hct MCHC RDW Lymph % (Auto) [place] % (Auto) Eos % (Auto) Lymph # [place] # Lymph # (Auto) [place] # (Auto) Eos # (Auto) Seg Neutrophils % Seg Neuts % (Manual) Lymphocytes % (Manual) Seg Neutrophils # Seg Neutrophils # Man Lymphocytes # (Manual) Monocytes % (Manual) Eosinophils % (Manual) Monocytes # (Manual) Eosinophils # (Manual) D-Dimer Heparin Anti-Xa Level ABG pH POC ABG pCO2 POC ABG pO2 ABG pO2 ABG HCO3 ABG O2 Saturation ABG Base Excess ABG Hemoglobin ABG Oxyhemoglobin VBG pH ABG Sodium ABG Potassium ABG Glucose Oxyhemoglobin Sodium Potassium Chloride Carbon Dioxide BUN Creatinine Glucose POC Glucose 146 H 149 H 157 H Lactic Acid Calcium Ferritin AST Alkaline Phosphatase Magnesium Lactate Dehydrogenase Total Creatine Kinase CK-MB (CK-2) C-Reactive Protein Total Protein Albumin Troponin T HDL Cholesterol Arterial Blood Glucose Urine WBC (Auto) Urine Creatinine Urine Total Protein Phenytoin Coronavirus (PCR) Crossmatch 07/14/20 07/14/20 07/14/20 05:43 08:04 12:12 WBC RBC Hgb Hct MCHC RDW Lymph % (Auto) [place] % (Auto) Eos % (Auto) Lymph # [place] # Lymph # (Auto) [place] # (Auto) Eos # (Auto) Seg Neutrophils % Seg Neuts % (Manual) Lymphocytes % (Manual) Seg Neutrophils # Seg Neutrophils # Man Lymphocytes # (Manual) Monocytes % (Manual) Eosinophils % (Manual) Monocytes # (Manual) Eosinophils # (Manual) D-Dimer Heparin Anti-Xa Level ABG pH POC ABG pCO2 POC ABG pO2 ABG pO2 ABG HCO3 ABG O2 Saturation ABG Base Excess ABG Hemoglobin ABG Oxyhemoglobin VBG pH ABG Sodium ABG Potassium ABG Glucose Oxyhemoglobin Sodium Potassium Chloride Carbon Dioxide BUN Creatinine Glucose POC Glucose 169 H 185 H Lactic Acid Calcium Ferritin AST Alkaline Phosphatase Magnesium Lactate Dehydrogenase Total Creatine Kinase CK-MB (CK-2) C-Reactive Protein Total Protein Albumin Troponin T HDL Cholesterol Arterial Blood Glucose Urine WBC (Auto) Urine Creatinine Urine Total Protein Phenytoin Coronavirus (PCR) Positive A Crossmatch 07/14/20 07/15/20 07/15/20 17:23 00:04 06:06 WBC RBC Hgb Hct MCHC RDW Lymph % (Auto) [place] % (Auto) Eos % (Auto) Lymph # [place] # Lymph # (Auto) [place] # (Auto) Eos # (Auto) Seg Neutrophils % Seg Neuts % (Manual) Lymphocytes % (Manual) Seg Neutrophils # Seg Neutrophils # Man Lymphocytes # (Manual) Monocytes % (Manual) Eosinophils % (Manual) Monocytes # (Manual) Eosinophils # (Manual) D-Dimer Heparin Anti-Xa Level ABG pH POC ABG pCO2 POC ABG pO2 ABG pO2 ABG HCO3 ABG O2 Saturation ABG Base Excess ABG Hemoglobin ABG Oxyhemoglobin VBG pH ABG Sodium ABG Potassium ABG Glucose Oxyhemoglobin Sodium Potassium Chloride Carbon Dioxide BUN Creatinine Glucose POC Glucose 138 H 121 H 140 H Lactic Acid Calcium Ferritin AST Alkaline Phosphatase Magnesium Lactate Dehydrogenase Total Creatine Kinase CK-MB (CK-2) C-Reactive Protein Total Protein Albumin Troponin T HDL Cholesterol Arterial Blood Glucose Urine WBC (Auto) Urine Creatinine Urine Total Protein Phenytoin Coronavirus (PCR) Crossmatch 07/15/20 07/15/20 07/15/20 12:00 17:53 23:53 WBC RBC Hgb Hct MCHC RDW Lymph % (Auto) [place] % (Auto) Eos % (Auto) Lymph # [place] # Lymph # (Auto) [place] # (Auto) Eos # (Auto) Seg Neutrophils % Seg Neuts % (Manual) Lymphocytes % (Manual) Seg Neutrophils # Seg Neutrophils # Man Lymphocytes # (Manual) Monocytes % (Manual) Eosinophils % (Manual) Monocytes # (Manual) Eosinophils # (Manual) D-Dimer Heparin Anti-Xa Level ABG pH POC ABG pCO2 POC ABG pO2 ABG pO2 ABG HCO3 ABG O2 Saturation ABG Base Excess ABG Hemoglobin ABG Oxyhemoglobin VBG pH ABG Sodium ABG Potassium ABG Glucose Oxyhemoglobin Sodium Potassium Chloride Carbon Dioxide BUN Creatinine Glucose POC Glucose 137 H 161 H 156 H Lactic Acid Calcium Ferritin AST Alkaline Phosphatase Magnesium Lactate Dehydrogenase Total Creatine Kinase CK-MB (CK-2) C-Reactive Protein Total Protein Albumin Troponin T HDL Cholesterol Arterial Blood Glucose Urine WBC (Auto) Urine Creatinine Urine Total Protein Phenytoin Coronavirus (PCR) Crossmatch 07/16/20 07/16/20 07/17/20 05:26 17:44 00:07 WBC RBC Hgb Hct MCHC RDW Lymph % (Auto) [place] % (Auto) Eos % (Auto) Lymph # [place] # Lymph # (Auto) [place] # (Auto) Eos # (Auto) Seg Neutrophils % Seg Neuts % (Manual) Lymphocytes % (Manual) Seg Neutrophils # Seg Neutrophils # Man Lymphocytes # (Manual) Monocytes % (Manual) Eosinophils % (Manual) Monocytes # (Manual) Eosinophils # (Manual) D-Dimer Heparin Anti-Xa Level ABG pH POC ABG pCO2 POC ABG pO2 ABG pO2 ABG HCO3 ABG O2 Saturation ABG Base Excess ABG Hemoglobin ABG Oxyhemoglobin VBG pH ABG Sodium ABG Potassium ABG Glucose Oxyhemoglobin Sodium Potassium Chloride Carbon Dioxide BUN Creatinine Glucose POC Glucose 152 H 126 H 189 H Lactic Acid Calcium Ferritin AST Alkaline Phosphatase Magnesium Lactate Dehydrogenase Total Creatine Kinase CK-MB (CK-2) C-Reactive Protein Total Protein Albumin Troponin T HDL Cholesterol Arterial Blood Glucose Urine WBC (Auto) Urine Creatinine Urine Total Protein Phenytoin Coronavirus (PCR) Crossmatch 07/17/20 07/17/20 07/17/20 12:06 18:20 23:25 WBC RBC Hgb Hct MCHC RDW Lymph % (Auto) [place] % (Auto) Eos % (Auto) Lymph # [place] # Lymph # (Auto) [place] # (Auto) Eos # (Auto) Seg Neutrophils % Seg Neuts % (Manual) Lymphocytes % (Manual) Seg Neutrophils # Seg Neutrophils # Man Lymphocytes # (Manual) Monocytes % (Manual) Eosinophils % (Manual) Monocytes # (Manual) Eosinophils # (Manual) D-Dimer Heparin Anti-Xa Level ABG pH POC ABG pCO2 POC ABG pO2 ABG pO2 ABG HCO3 ABG O2 Saturation ABG Base Excess ABG Hemoglobin ABG Oxyhemoglobin VBG pH ABG Sodium ABG Potassium ABG Glucose Oxyhemoglobin Sodium Potassium Chloride Carbon Dioxide BUN Creatinine Glucose POC Glucose 155 H 206 H 161 H Lactic Acid Calcium Ferritin AST Alkaline Phosphatase Magnesium Lactate Dehydrogenase Total Creatine Kinase CK-MB (CK-2) C-Reactive Protein Total Protein Albumin Troponin T HDL Cholesterol Arterial Blood Glucose Urine WBC (Auto) Urine Creatinine Urine Total Protein Phenytoin Coronavirus (PCR) Crossmatch 07/18/20 07/18/20 07/18/20 04:24 05:16 11:53 WBC RBC Hgb Hct MCHC RDW Lymph % (Auto) [place] % (Auto) Eos % (Auto) Lymph # [place] # Lymph # (Auto) [place] # (Auto) Eos # (Auto) Seg Neutrophils % Seg Neuts % (Manual) Lymphocytes % (Manual) Seg Neutrophils # Seg Neutrophils # Man Lymphocytes # (Manual) Monocytes % (Manual) Eosinophils % (Manual) Monocytes # (Manual) Eosinophils # (Manual) D-Dimer Heparin Anti-Xa Level ABG pH POC ABG pCO2 POC ABG pO2 ABG pO2 ABG HCO3 ABG O2 Saturation ABG Base Excess ABG Hemoglobin 8.8 L ABG Oxyhemoglobin VBG pH ABG Sodium 131.6 L ABG Potassium 4.9 H ABG Glucose 131 H Oxyhemoglobin Sodium Potassium Chloride Carbon Dioxide BUN Creatinine Glucose POC Glucose 140 H 176 H Lactic Acid Calcium Ferritin AST Alkaline Phosphatase Magnesium Lactate Dehydrogenase Total Creatine Kinase CK-MB (CK-2) C-Reactive Protein Total Protein Albumin Troponin T HDL Cholesterol Arterial Blood Glucose 131 H Urine WBC (Auto) Urine Creatinine Urine Total Protein Phenytoin Coronavirus (PCR) Crossmatch 07/18/20 07/18/20 07/19/20 18:11 23:51 01:05 WBC RBC 2.76 L Hgb 7.9 L Hct 24.5 L MCHC RDW 17.6 H Lymph % (Auto) 11.6 L [place] % (Auto) 13.1 H Eos % (Auto) Lymph # [place] # Lymph # (Auto) 1.0 L [place] # (Auto) 1.1 H Eos # (Auto) Seg Neutrophils % 70.9 H Seg Neuts % (Manual) Lymphocytes % (Manual) Seg Neutrophils # Seg Neutrophils # Man Lymphocytes # (Manual) Monocytes % (Manual) Eosinophils % (Manual) Monocytes # (Manual) Eosinophils # (Manual) D-Dimer Heparin Anti-Xa Level ABG pH POC ABG pCO2 POC ABG pO2 ABG pO2 ABG HCO3 ABG O2 Saturation ABG Base Excess ABG Hemoglobin ABG Oxyhemoglobin VBG pH ABG Sodium ABG Potassium ABG Glucose Oxyhemoglobin Sodium Potassium Chloride Carbon Dioxide BUN Creatinine Glucose POC Glucose 143 H 159 H Lactic Acid Calcium Ferritin AST Alkaline Phosphatase Magnesium Lactate Dehydrogenase Total Creatine Kinase CK-MB (CK-2) C-Reactive Protein Total Protein Albumin Troponin T HDL Cholesterol Arterial Blood Glucose Urine WBC (Auto) Urine Creatinine Urine Total Protein Phenytoin Coronavirus (PCR) Crossmatch 07/19/20 07/19/20 07/19/20 01:05 05:54 12:46 WBC RBC Hgb Hct MCHC RDW Lymph % (Auto) [place] % (Auto) Eos % (Auto) Lymph # [place] # Lymph # (Auto) [place] # (Auto) Eos # (Auto) Seg Neutrophils % Seg Neuts % (Manual) Lymphocytes % (Manual) Seg Neutrophils # Seg Neutrophils # Man Lymphocytes # (Manual) Monocytes % (Manual) Eosinophils % (Manual) Monocytes # (Manual) Eosinophils # (Manual) D-Dimer Heparin Anti-Xa Level ABG pH POC ABG pCO2 POC ABG pO2 ABG pO2 ABG HCO3 ABG O2 Saturation ABG Base Excess ABG Hemoglobin ABG Oxyhemoglobin VBG pH ABG Sodium ABG Potassium ABG Glucose Oxyhemoglobin Sodium Potassium Chloride Carbon Dioxide BUN 86 H Creatinine 1.7 H Glucose 149 H POC Glucose 176 H 127 H Lactic Acid Calcium Ferritin AST Alkaline Phosphatase Magnesium Lactate Dehydrogenase Total Creatine Kinase CK-MB (CK-2) C-Reactive Protein Total Protein Albumin Troponin T HDL Cholesterol Arterial Blood Glucose Urine WBC (Auto) Urine Creatinine Urine Total Protein Phenytoin Coronavirus (PCR) Crossmatch 07/19/20 07/20/20 07/20/20 17:48 00:34 05:28 WBC RBC Hgb Hct MCHC RDW Lymph % (Auto) [place] % (Auto) Eos % (Auto) Lymph # [place] # Lymph # (Auto) [place] # (Auto) Eos # (Auto) Seg Neutrophils % Seg Neuts % (Manual) Lymphocytes % (Manual) Seg Neutrophils # Seg Neutrophils # Man Lymphocytes # (Manual) Monocytes % (Manual) Eosinophils % (Manual) Monocytes # (Manual) Eosinophils # (Manual) D-Dimer Heparin Anti-Xa Level ABG pH POC ABG pCO2 POC ABG pO2 ABG pO2 ABG HCO3 ABG O2 Saturation ABG Base Excess ABG Hemoglobin ABG Oxyhemoglobin VBG pH ABG Sodium ABG Potassium ABG Glucose Oxyhemoglobin Sodium Potassium Chloride Carbon Dioxide BUN Creatinine Glucose POC Glucose 123 H 147 H 110 H Lactic Acid Calcium Ferritin AST Alkaline Phosphatase Magnesium Lactate Dehydrogenase Total Creatine Kinase CK-MB (CK-2) C-Reactive Protein Total Protein Albumin Troponin T HDL Cholesterol Arterial Blood Glucose Urine WBC (Auto) Urine Creatinine Urine Total Protein Phenytoin Coronavirus (PCR) Crossmatch 07/20/20 07/20/20 07/21/20 12:10 17:00 00:11 WBC RBC Hgb Hct MCHC RDW Lymph % (Auto) [place] % (Auto) Eos % (Auto) Lymph # [place] # Lymph # (Auto) [place] # (Auto) Eos # (Auto) Seg Neutrophils % Seg Neuts % (Manual) Lymphocytes % (Manual) Seg Neutrophils # Seg Neutrophils # Man Lymphocytes # (Manual) Monocytes % (Manual) Eosinophils % (Manual) Monocytes # (Manual) Eosinophils # (Manual) D-Dimer Heparin Anti-Xa Level ABG pH POC ABG pCO2 POC ABG pO2 ABG pO2 ABG HCO3 ABG O2 Saturation ABG Base Excess ABG Hemoglobin ABG Oxyhemoglobin VBG pH ABG Sodium ABG Potassium ABG Glucose Oxyhemoglobin Sodium Potassium Chloride Carbon Dioxide BUN Creatinine Glucose POC Glucose 149 H 173 H 128 H Lactic Acid Calcium Ferritin AST Alkaline Phosphatase Magnesium Lactate Dehydrogenase Total Creatine Kinase CK-MB (CK-2) C-Reactive Protein Total Protein Albumin Troponin T HDL Cholesterol Arterial Blood Glucose Urine WBC (Auto) Urine Creatinine Urine Total Protein Phenytoin Coronavirus (PCR) Crossmatch 07/21/20 07/21/20 07/21/20 05:30 12:21 18:17 WBC RBC Hgb Hct MCHC RDW Lymph % (Auto) [place] % (Auto) Eos % (Auto) Lymph # [place] # Lymph # (Auto) [place] # (Auto) Eos # (Auto) Seg Neutrophils % Seg Neuts % (Manual) Lymphocytes % (Manual) Seg Neutrophils # Seg Neutrophils # Man Lymphocytes # (Manual) Monocytes % (Manual) Eosinophils % (Manual) Monocytes # (Manual) Eosinophils # (Manual) D-Dimer Heparin Anti-Xa Level ABG pH POC ABG pCO2 POC ABG pO2 ABG pO2 ABG HCO3 ABG O2 Saturation ABG Base Excess ABG Hemoglobin ABG Oxyhemoglobin VBG pH ABG Sodium ABG Potassium ABG Glucose Oxyhemoglobin Sodium Potassium Chloride Carbon Dioxide BUN Creatinine Glucose POC Glucose 153 H 144 H 160 H Lactic Acid Calcium Ferritin AST Alkaline Phosphatase Magnesium Lactate Dehydrogenase Total Creatine Kinase CK-MB (CK-2) C-Reactive Protein Total Protein Albumin Troponin T HDL Cholesterol Arterial Blood Glucose Urine WBC (Auto) Urine Creatinine Urine Total Protein Phenytoin Coronavirus (PCR) Crossmatch 07/22/20 07/22/20 07/22/20 00:45 05:52 12:03 WBC RBC Hgb Hct MCHC RDW Lymph % (Auto) [place] % (Auto) Eos % (Auto) Lymph # [place] # Lymph # (Auto) [place] # (Auto) Eos # (Auto) Seg Neutrophils % Seg Neuts % (Manual) Lymphocytes % (Manual) Seg Neutrophils # Seg Neutrophils # Man Lymphocytes # (Manual) Monocytes % (Manual) Eosinophils % (Manual) Monocytes # (Manual) Eosinophils # (Manual) D-Dimer Heparin Anti-Xa Level ABG pH POC ABG pCO2 POC ABG pO2 ABG pO2 ABG HCO3 ABG O2 Saturation ABG Base Excess ABG Hemoglobin ABG Oxyhemoglobin VBG pH ABG Sodium ABG Potassium ABG Glucose Oxyhemoglobin Sodium Potassium Chloride Carbon Dioxide BUN Creatinine Glucose POC Glucose 128 H 126 H 157 H Lactic Acid Calcium Ferritin AST Alkaline Phosphatase Magnesium Lactate Dehydrogenase Total Creatine Kinase CK-MB (CK-2) C-Reactive Protein Total Protein Albumin Troponin T HDL Cholesterol Arterial Blood Glucose Urine WBC (Auto) Urine Creatinine Urine Total Protein Phenytoin Coronavirus (PCR) Crossmatch 07/22/20 07/22/20 07/23/20 18:23 23:20 06:06 WBC RBC Hgb Hct MCHC RDW Lymph % (Auto) [place] % (Auto) Eos % (Auto) Lymph # [place] # Lymph # (Auto) [place] # (Auto) Eos # (Auto) Seg Neutrophils % Seg Neuts % (Manual) Lymphocytes % (Manual) Seg Neutrophils # Seg Neutrophils # Man Lymphocytes # (Manual) Monocytes % (Manual) Eosinophils % (Manual) Monocytes # (Manual) Eosinophils # (Manual) D-Dimer Heparin Anti-Xa Level ABG pH POC ABG pCO2 POC ABG pO2 ABG pO2 ABG HCO3 ABG O2 Saturation ABG Base Excess ABG Hemoglobin ABG Oxyhemoglobin VBG pH ABG Sodium ABG Potassium ABG Glucose Oxyhemoglobin Sodium Potassium Chloride Carbon Dioxide BUN Creatinine Glucose POC Glucose 152 H 122 H 143 H Lactic Acid Calcium Ferritin AST Alkaline Phosphatase Magnesium Lactate Dehydrogenase Total Creatine Kinase CK-MB (CK-2) C-Reactive Protein Total Protein Albumin Troponin T HDL Cholesterol Arterial Blood Glucose Urine WBC (Auto) Urine Creatinine Urine Total Protein Phenytoin Coronavirus (PCR) Crossmatch 07/23/20 07/23/20 07/23/20 12:11 17:38 19:23 WBC RBC Hgb Hct MCHC RDW Lymph % (Auto) [place] % (Auto) Eos % (Auto) Lymph # [place] # Lymph # (Auto) [place] # (Auto) Eos # (Auto) Seg Neutrophils % Seg Neuts % (Manual) Lymphocytes % (Manual) Seg Neutrophils # Seg Neutrophils # Man Lymphocytes # (Manual) Monocytes % (Manual) Eosinophils % (Manual) Monocytes # (Manual) Eosinophils # (Manual) D-Dimer Heparin Anti-Xa Level ABG pH POC ABG pCO2 POC ABG pO2 ABG pO2 ABG HCO3 ABG O2 Saturation ABG Base Excess ABG Hemoglobin ABG Oxyhemoglobin VBG pH ABG Sodium ABG Potassium ABG Glucose Oxyhemoglobin Sodium 129 L D Potassium 5.8 H Chloride 95.6 L Carbon Dioxide BUN 98 H Creatinine 2.1 H Glucose 167 H POC Glucose 210 H 181 H Lactic Acid Calcium Ferritin AST Alkaline Phosphatase Magnesium Lactate Dehydrogenase Total Creatine Kinase CK-MB (CK-2) C-Reactive Protein Total Protein Albumin 2.2 L Troponin T HDL Cholesterol Arterial Blood Glucose Urine WBC (Auto) Urine Creatinine Urine Total Protein Phenytoin Coronavirus (PCR) Crossmatch 07/24/20 07/24/20 07/24/20 00:00 04:29 04:29 WBC RBC 2.53 L Hgb 7.5 L Hct 22.8 L MCHC RDW 16.8 H Lymph % (Auto) 9.4 L [place] % (Auto) 10.4 H Eos % (Auto) 5.9 H Lymph # [place] # Lymph # (Auto) 0.8 L [place] # (Auto) 0.9 H Eos # (Auto) 0.5 H Seg Neutrophils % 73.5 H Seg Neuts % (Manual) Lymphocytes % (Manual) Seg Neutrophils # Seg Neutrophils # Man Lymphocytes # (Manual) Monocytes % (Manual) Eosinophils % (Manual) Monocytes # (Manual) Eosinophils # (Manual) D-Dimer Heparin Anti-Xa Level ABG pH POC ABG pCO2 POC ABG pO2 ABG pO2 ABG HCO3 ABG O2 Saturation ABG Base Excess ABG Hemoglobin ABG Oxyhemoglobin VBG pH ABG Sodium ABG Potassium ABG Glucose Oxyhemoglobin Sodium Potassium Chloride Carbon Dioxide BUN Creatinine Glucose POC Glucose 201 H Lactic Acid Calcium Ferritin AST Alkaline Phosphatase Magnesium Lactate Dehydrogenase Total Creatine Kinase CK-MB (CK-2) C-Reactive Protein Total Protein Albumin Troponin T HDL Cholesterol Arterial Blood Glucose Urine WBC (Auto) Urine Creatinine Urine Total Protein Phenytoin 9.4 L Coronavirus (PCR) Crossmatch 07/24/20 07/24/20 07/24/20 04:29 05:11 12:14 WBC RBC Hgb Hct MCHC RDW Lymph % (Auto) [place] % (Auto) Eos % (Auto) Lymph # [place] # Lymph # (Auto) [place] # (Auto) Eos # (Auto) Seg Neutrophils % Seg Neuts % (Manual) Lymphocytes % (Manual) Seg Neutrophils # Seg Neutrophils # Man Lymphocytes # (Manual) Monocytes % (Manual) Eosinophils % (Manual) Monocytes # (Manual) Eosinophils # (Manual) D-Dimer Heparin Anti-Xa Level ABG pH POC ABG pCO2 POC ABG pO2 ABG pO2 ABG HCO3 ABG O2 Saturation ABG Base Excess ABG Hemoglobin ABG Oxyhemoglobin VBG pH ABG Sodium ABG Potassium ABG Glucose Oxyhemoglobin Sodium 134 L Potassium 5.5 H Chloride Carbon Dioxide BUN 97 H Creatinine 2.2 H Glucose 149 H POC Glucose 142 H 146 H Lactic Acid Calcium Ferritin AST Alkaline Phosphatase Magnesium 2.60 H Lactate Dehydrogenase Total Creatine Kinase CK-MB (CK-2) C-Reactive Protein Total Protein Albumin Troponin T HDL Cholesterol Arterial Blood Glucose Urine WBC (Auto) Urine Creatinine Urine Total Protein Phenytoin Coronavirus (PCR) Crossmatch 07/24/20 07/24/20 07/25/20 18:12 21:00 00:08 WBC RBC Hgb Hct MCHC RDW Lymph % (Auto) [place] % (Auto) Eos % (Auto) Lymph # [place] # Lymph # (Auto) [place] # (Auto) Eos # (Auto) Seg Neutrophils % Seg Neuts % (Manual) Lymphocytes % (Manual) Seg Neutrophils # Seg Neutrophils # Man Lymphocytes # (Manual) Monocytes % (Manual) Eosinophils % (Manual) Monocytes # (Manual) Eosinophils # (Manual) D-Dimer Heparin Anti-Xa Level ABG pH POC ABG pCO2 POC ABG pO2 ABG pO2 ABG HCO3 ABG O2 Saturation ABG Base Excess ABG Hemoglobin ABG Oxyhemoglobin VBG pH ABG Sodium ABG Potassium ABG Glucose Oxyhemoglobin Sodium Potassium Chloride Carbon Dioxide BUN Creatinine Glucose POC Glucose 182 H 170 H 129 H Lactic Acid Calcium Ferritin AST Alkaline Phosphatase Magnesium Lactate Dehydrogenase Total Creatine Kinase CK-MB (CK-2) C-Reactive Protein Total Protein Albumin Troponin T HDL Cholesterol Arterial Blood Glucose Urine WBC (Auto) Urine Creatinine Urine Total Protein Phenytoin Coronavirus (PCR) Crossmatch 07/25/20 07/25/20 07/25/20 04:24 04:24 12:19 WBC RBC 2.51 L Hgb 7.5 L Hct 22.3 L MCHC RDW 17.4 H Lymph % (Auto) [place] % (Auto) Eos % (Auto) Lymph # [place] # Lymph # (Auto) [place] # (Auto) Eos # (Auto) Seg Neutrophils % Seg Neuts % (Manual) Lymphocytes % (Manual) Seg Neutrophils # Seg Neutrophils # Man Lymphocytes # (Manual) Monocytes % (Manual) Eosinophils % (Manual) Monocytes # (Manual) Eosinophils # (Manual) D-Dimer Heparin Anti-Xa Level ABG pH POC ABG pCO2 POC ABG pO2 ABG pO2 ABG HCO3 ABG O2 Saturation ABG Base Excess ABG Hemoglobin ABG Oxyhemoglobin VBG pH ABG Sodium ABG Potassium ABG Glucose Oxyhemoglobin Sodium 132 L Potassium Chloride 95.1 L Carbon Dioxide 21 L BUN 95 H Creatinine 2.5 H Glucose 108 H POC Glucose 122 H Lactic Acid Calcium Ferritin AST Alkaline Phosphatase Magnesium Lactate Dehydrogenase Total Creatine Kinase CK-MB (CK-2) C-Reactive Protein Total Protein Albumin Troponin T HDL Cholesterol Arterial Blood Glucose Urine WBC (Auto) Urine Creatinine Urine Total Protein Phenytoin Coronavirus (PCR) Crossmatch 07/25/20 07/25/20 07/26/20 18:11 23:24 04:22 WBC RBC Hgb Hct MCHC RDW Lymph % (Auto) [place] % (Auto) Eos % (Auto) Lymph # [place] # Lymph # (Auto) [place] # (Auto) Eos # (Auto) Seg Neutrophils % Seg Neuts % (Manual) Lymphocytes % (Manual) Seg Neutrophils # Seg Neutrophils # Man Lymphocytes # (Manual) Monocytes % (Manual) Eosinophils % (Manual) Monocytes # (Manual) Eosinophils # (Manual) D-Dimer Heparin Anti-Xa Level ABG pH POC ABG pCO2 POC ABG pO2 ABG pO2 ABG HCO3 ABG O2 Saturation ABG Base Excess ABG Hemoglobin ABG Oxyhemoglobin VBG pH ABG Sodium ABG Potassium ABG Glucose Oxyhemoglobin Sodium 132 L Potassium Chloride 96.2 L Carbon Dioxide 21 L BUN 99 H Creatinine 2.5 H Glucose 132 H POC Glucose 137 H 117 H Lactic Acid Calcium 8.2 L Ferritin AST Alkaline Phosphatase Magnesium Lactate Dehydrogenase Total Creatine Kinase CK-MB (CK-2) C-Reactive Protein Total Protein Albumin Troponin T HDL Cholesterol Arterial Blood Glucose Urine WBC (Auto) Urine Creatinine Urine Total Protein Phenytoin Coronavirus (PCR) Crossmatch 07/26/20 07/26/20 07/26/20 05:58 12:21 17:31 WBC RBC Hgb Hct MCHC RDW Lymph % (Auto) [place] % (Auto) Eos % (Auto) Lymph # [place] # Lymph # (Auto) [place] # (Auto) Eos # (Auto) Seg Neutrophils % Seg Neuts % (Manual) Lymphocytes % (Manual) Seg Neutrophils # Seg Neutrophils # Man Lymphocytes # (Manual) Monocytes % (Manual) Eosinophils % (Manual) Monocytes # (Manual) Eosinophils # (Manual) D-Dimer Heparin Anti-Xa Level ABG pH POC ABG pCO2 POC ABG pO2 ABG pO2 ABG HCO3 ABG O2 Saturation ABG Base Excess ABG Hemoglobin ABG Oxyhemoglobin VBG pH ABG Sodium ABG Potassium ABG Glucose Oxyhemoglobin Sodium Potassium Chloride Carbon Dioxide BUN Creatinine Glucose POC Glucose 110 H 142 H 180 H Lactic Acid Calcium Ferritin AST Alkaline Phosphatase Magnesium Lactate Dehydrogenase Total Creatine Kinase CK-MB (CK-2) C-Reactive Protein Total Protein Albumin Troponin T HDL Cholesterol Arterial Blood Glucose Urine WBC (Auto) Urine Creatinine Urine Total Protein Phenytoin Coronavirus (PCR) Crossmatch 07/26/20 07/27/20 07/27/20 23:36 03:36 05:36 WBC RBC 2.49 L Hgb 7.3 L Hct 22.2 L MCHC RDW 17.2 H Lymph % (Auto) 11.0 L [place] % (Auto) 11.7 H Eos % (Auto) Lymph # [place] # Lymph # (Auto) 0.8 L [place] # (Auto) 0.9 H Eos # (Auto) Seg Neutrophils % 72.3 H Seg Neuts % (Manual) Lymphocytes % (Manual) Seg Neutrophils # Seg Neutrophils # Man Lymphocytes # (Manual) Monocytes % (Manual) Eosinophils % (Manual) Monocytes # (Manual) Eosinophils # (Manual) D-Dimer Heparin Anti-Xa Level ABG pH POC ABG pCO2 POC ABG pO2 ABG pO2 ABG HCO3 ABG O2 Saturation ABG Base Excess ABG Hemoglobin ABG Oxyhemoglobin VBG pH ABG Sodium ABG Potassium ABG Glucose Oxyhemoglobin Sodium Potassium Chloride Carbon Dioxide BUN Creatinine Glucose POC Glucose 162 H 118 H Lactic Acid Calcium Ferritin AST Alkaline Phosphatase Magnesium Lactate Dehydrogenase Total Creatine Kinase CK-MB (CK-2) C-Reactive Protein Total Protein Albumin Troponin T HDL Cholesterol Arterial Blood Glucose Urine WBC (Auto) Urine Creatinine Urine Total Protein Phenytoin Coronavirus (PCR) Crossmatch 07/27/20 07/27/20 07/27/20 05:36 12:19 17:36 WBC RBC Hgb Hct MCHC RDW Lymph % (Auto) [place] % (Auto) Eos % (Auto) Lymph # [place] # Lymph # (Auto) [place] # (Auto) Eos # (Auto) Seg Neutrophils % Seg Neuts % (Manual) Lymphocytes % (Manual) Seg Neutrophils # Seg Neutrophils # Man Lymphocytes # (Manual) Monocytes % (Manual) Eosinophils % (Manual) Monocytes # (Manual) Eosinophils # (Manual) D-Dimer Heparin Anti-Xa Level ABG pH POC ABG pCO2 POC ABG pO2 ABG pO2 ABG HCO3 ABG O2 Saturation ABG Base Excess ABG Hemoglobin ABG Oxyhemoglobin VBG pH ABG Sodium ABG Potassium ABG Glucose Oxyhemoglobin Sodium 135 L Potassium 5.3 H Chloride Carbon Dioxide 21 L BUN 103 H Creatinine 2.6 H Glucose 113 H POC Glucose 131 H 151 H Lactic Acid Calcium 8.1 L Ferritin AST Alkaline Phosphatase Magnesium Lactate Dehydrogenase Total Creatine Kinase CK-MB (CK-2) C-Reactive Protein Total Protein Albumin Troponin T HDL Cholesterol Arterial Blood Glucose Urine WBC (Auto) Urine Creatinine Urine Total Protein Phenytoin Coronavirus (PCR) Crossmatch 07/27/20 07/28/20 07/28/20 23:29 04:30 04:30 WBC RBC 2.50 L Hgb 7.3 L Hct 22.2 L MCHC RDW 17.3 H Lymph % (Auto) 8.7 L [place] % (Auto) 8.3 H Eos % (Auto) Lymph # [place] # Lymph # (Auto) 0.7 L [place] # (Auto) Eos # (Auto) Seg Neutrophils % 79.1 H Seg Neuts % (Manual) Lymphocytes % (Manual) Seg Neutrophils # Seg Neutrophils # Man Lymphocytes # (Manual) Monocytes % (Manual) Eosinophils % (Manual) Monocytes # (Manual) Eosinophils # (Manual) D-Dimer Heparin Anti-Xa Level ABG pH POC ABG pCO2 POC ABG pO2 ABG pO2 ABG HCO3 ABG O2 Saturation ABG Base Excess ABG Hemoglobin ABG Oxyhemoglobin VBG pH ABG Sodium ABG Potassium ABG Glucose Oxyhemoglobin Sodium 135 L Potassium 5.2 H Chloride 96.8 L Carbon Dioxide 20 L BUN 107 H Creatinine 2.9 H Glucose POC Glucose 124 H Lactic Acid Calcium 8.2 L Ferritin AST Alkaline Phosphatase Magnesium 2.70 H Lactate Dehydrogenase Total Creatine Kinase CK-MB (CK-2) C-Reactive Protein Total Protein Albumin Troponin T HDL Cholesterol Arterial Blood Glucose Urine WBC (Auto) Urine Creatinine Urine Total Protein Phenytoin Coronavirus (PCR) Crossmatch 07/28/20 07/29/20 07/29/20 17:35 00:11 06:45 WBC RBC Hgb Hct MCHC RDW Lymph % (Auto) [place] % (Auto) Eos % (Auto) Lymph # [place] # Lymph # (Auto) [place] # (Auto) Eos # (Auto) Seg Neutrophils % Seg Neuts % (Manual) Lymphocytes % (Manual) Seg Neutrophils # Seg Neutrophils # Man Lymphocytes # (Manual) Monocytes % (Manual) Eosinophils % (Manual) Monocytes # (Manual) Eosinophils # (Manual) D-Dimer Heparin Anti-Xa Level ABG pH POC ABG pCO2 POC ABG pO2 ABG pO2 ABG HCO3 ABG O2 Saturation ABG Base Excess ABG Hemoglobin ABG Oxyhemoglobin VBG pH ABG Sodium ABG Potassium ABG Glucose Oxyhemoglobin Sodium Potassium Chloride Carbon Dioxide BUN Creatinine Glucose POC Glucose 146 H 143 H 179 H Lactic Acid Calcium Ferritin AST Alkaline Phosphatase Magnesium Lactate Dehydrogenase Total Creatine Kinase CK-MB (CK-2) C-Reactive Protein Total Protein Albumin Troponin T HDL Cholesterol Arterial Blood Glucose Urine WBC (Auto) Urine Creatinine Urine Total Protein Phenytoin Coronavirus (PCR) Crossmatch 07/29/20 07/29/20 07/29/20 11:54 13:01 13:01 WBC RBC 2.40 L Hgb 7.1 L Hct 20.9 L MCHC RDW 17.5 H Lymph % (Auto) [place] % (Auto) Eos % (Auto) Lymph # [place] # Lymph # (Auto) [place] # (Auto) Eos # (Auto) Seg Neutrophils % Seg Neuts % (Manual) 86.0 H Lymphocytes % (Manual) 6.0 L Seg Neutrophils # Seg Neutrophils # Man 8.9 H Lymphocytes # (Manual) 0.6 L Monocytes % (Manual) 8.0 H Eosinophils % (Manual) Monocytes # (Manual) Eosinophils # (Manual) D-Dimer Heparin Anti-Xa Level ABG pH POC ABG pCO2 POC ABG pO2 ABG pO2 ABG HCO3 ABG O2 Saturation ABG Base Excess ABG Hemoglobin ABG Oxyhemoglobin VBG pH ABG Sodium ABG Potassium ABG Glucose Oxyhemoglobin Sodium 129 L Potassium Chloride 92.9 L Carbon Dioxide BUN 112 H Creatinine 3.0 H Glucose 142 H POC Glucose 170 H Lactic Acid Calcium 7.9 L Ferritin AST Alkaline Phosphatase Magnesium Lactate Dehydrogenase Total Creatine Kinase CK-MB (CK-2) C-Reactive Protein Total Protein Albumin Troponin T HDL Cholesterol Arterial Blood Glucose Urine WBC (Auto) Urine Creatinine Urine Total Protein Phenytoin Coronavirus (PCR) Crossmatch 07/29/20 07/30/20 07/30/20 22:45 05:01 11:45 WBC RBC Hgb Hct MCHC RDW Lymph % (Auto) [place] % (Auto) Eos % (Auto) Lymph # [place] # Lymph # (Auto) [place] # (Auto) Eos # (Auto) Seg Neutrophils % Seg Neuts % (Manual) Lymphocytes % (Manual) Seg Neutrophils # Seg Neutrophils # Man Lymphocytes # (Manual) Monocytes % (Manual) Eosinophils % (Manual) Monocytes # (Manual) Eosinophils # (Manual) D-Dimer Heparin Anti-Xa Level ABG pH POC ABG pCO2 POC ABG pO2 ABG pO2 ABG HCO3 ABG O2 Saturation ABG Base Excess ABG Hemoglobin ABG Oxyhemoglobin VBG pH ABG Sodium ABG Potassium ABG Glucose Oxyhemoglobin Sodium Potassium Chloride Carbon Dioxide BUN Creatinine Glucose POC Glucose 129 H 150 H 130 H Lactic Acid Calcium Ferritin AST Alkaline Phosphatase Magnesium Lactate Dehydrogenase Total Creatine Kinase CK-MB (CK-2) C-Reactive Protein Total Protein Albumin Troponin T HDL Cholesterol Arterial Blood Glucose Urine WBC (Auto) Urine Creatinine Urine Total Protein Phenytoin Coronavirus (PCR) Crossmatch 07/30/20 07/30/20 07/30/20 17:54 21:26 23:58 WBC RBC Hgb Hct MCHC RDW Lymph % (Auto) [place] % (Auto) Eos % (Auto) Lymph # [place] # Lymph # (Auto) [place] # (Auto) Eos # (Auto) Seg Neutrophils % Seg Neuts % (Manual) Lymphocytes % (Manual) Seg Neutrophils # Seg Neutrophils # Man Lymphocytes # (Manual) Monocytes % (Manual) Eosinophils % (Manual) Monocytes # (Manual) Eosinophils # (Manual) D-Dimer Heparin Anti-Xa Level ABG pH POC ABG pCO2 POC ABG pO2 ABG pO2 ABG HCO3 ABG O2 Saturation ABG Base Excess ABG Hemoglobin ABG Oxyhemoglobin VBG pH ABG Sodium ABG Potassium ABG Glucose Oxyhemoglobin Sodium Potassium Chloride Carbon Dioxide BUN Creatinine Glucose POC Glucose 143 H 124 H 142 H Lactic Acid Calcium Ferritin AST Alkaline Phosphatase Magnesium Lactate Dehydrogenase Total Creatine Kinase CK-MB (CK-2) C-Reactive Protein Total Protein Albumin Troponin T HDL Cholesterol Arterial Blood Glucose Urine WBC (Auto) Urine Creatinine Urine Total Protein Phenytoin Coronavirus (PCR) Crossmatch 07/31/20 07/31/20 07/31/20 05:43 11:35 18:07 WBC RBC Hgb Hct MCHC RDW Lymph % (Auto) [place] % (Auto) Eos % (Auto) Lymph # [place] # Lymph # (Auto) [place] # (Auto) Eos # (Auto) Seg Neutrophils % Seg Neuts % (Manual) Lymphocytes % (Manual) Seg Neutrophils # Seg Neutrophils # Man Lymphocytes # (Manual) Monocytes % (Manual) Eosinophils % (Manual) Monocytes # (Manual) Eosinophils # (Manual) D-Dimer Heparin Anti-Xa Level ABG pH POC ABG pCO2 POC ABG pO2 ABG pO2 ABG HCO3 ABG O2 Saturation ABG Base Excess ABG Hemoglobin ABG Oxyhemoglobin VBG pH ABG Sodium ABG Potassium ABG Glucose Oxyhemoglobin Sodium Potassium Chloride Carbon Dioxide BUN Creatinine Glucose POC Glucose 152 H 179 H 129 H Lactic Acid Calcium Ferritin AST Alkaline Phosphatase Magnesium Lactate Dehydrogenase Total Creatine Kinase CK-MB (CK-2) C-Reactive Protein Total Protein Albumin Troponin T HDL Cholesterol Arterial Blood Glucose Urine WBC (Auto) Urine Creatinine Urine Total Protein Phenytoin Coronavirus (PCR) Crossmatch 07/31/20 07/31/20 08/01/20 21:30 22:12 00:25 WBC RBC Hgb Hct MCHC RDW Lymph % (Auto) [place] % (Auto) Eos % (Auto) Lymph # [place] # Lymph # (Auto) [place] # (Auto) Eos # (Auto) Seg Neutrophils % Seg Neuts % (Manual) Lymphocytes % (Manual) Seg Neutrophils # Seg Neutrophils # Man Lymphocytes # (Manual) Monocytes % (Manual) Eosinophils % (Manual) Monocytes # (Manual) Eosinophils # (Manual) D-Dimer Heparin Anti-Xa Level ABG pH POC ABG pCO2 POC ABG pO2 ABG pO2 ABG HCO3 ABG O2 Saturation ABG Base Excess ABG Hemoglobin ABG Oxyhemoglobin VBG pH ABG Sodium ABG Potassium ABG Glucose Oxyhemoglobin Sodium Potassium Chloride Carbon Dioxide BUN Creatinine Glucose POC Glucose 143 H 122 H 134 H Lactic Acid Calcium Ferritin AST Alkaline Phosphatase Magnesium Lactate Dehydrogenase Total Creatine Kinase CK-MB (CK-2) C-Reactive Protein Total Protein Albumin Troponin T HDL Cholesterol Arterial Blood Glucose Urine WBC (Auto) Urine Creatinine Urine Total Protein Phenytoin Coronavirus (PCR) Crossmatch 08/01/20 08/01/20 08/01/20 04:43 05:41 12:23 WBC RBC Hgb Hct MCHC RDW Lymph % (Auto) [place] % (Auto) Eos % (Auto) Lymph # [place] # Lymph # (Auto) [place] # (Auto) Eos # (Auto) Seg Neutrophils % Seg Neuts % (Manual) Lymphocytes % (Manual) Seg Neutrophils # Seg Neutrophils # Man Lymphocytes # (Manual) Monocytes % (Manual) Eosinophils % (Manual) Monocytes # (Manual) Eosinophils # (Manual) D-Dimer Heparin Anti-Xa Level ABG pH POC ABG pCO2 POC ABG pO2 ABG pO2 ABG HCO3 ABG O2 Saturation ABG Base Excess ABG Hemoglobin ABG Oxyhemoglobin VBG pH ABG Sodium ABG Potassium ABG Glucose Oxyhemoglobin Sodium 128 L Potassium 5.8 H Chloride 90.5 L Carbon Dioxide 19 L BUN 122 H Creatinine 3.4 H Glucose 124 H POC Glucose 130 H 128 H Lactic Acid Calcium 8.0 L Ferritin AST Alkaline Phosphatase Magnesium Lactate Dehydrogenase Total Creatine Kinase CK-MB (CK-2) C-Reactive Protein Total Protein Albumin Troponin T HDL Cholesterol Arterial Blood Glucose Urine WBC (Auto) Urine Creatinine Urine Total Protein Phenytoin Coronavirus (PCR) Crossmatch 08/01/20 08/02/20 08/02/20 17:28 00:06 05:32 WBC RBC Hgb Hct MCHC RDW Lymph % (Auto) [place] % (Auto) Eos % (Auto) Lymph # [place] # Lymph # (Auto) [place] # (Auto) Eos # (Auto) Seg Neutrophils % Seg Neuts % (Manual) Lymphocytes % (Manual) Seg Neutrophils # Seg Neutrophils # Man Lymphocytes # (Manual) Monocytes % (Manual) Eosinophils % (Manual) Monocytes # (Manual) Eosinophils # (Manual) D-Dimer Heparin Anti-Xa Level ABG pH POC ABG pCO2 POC ABG pO2 ABG pO2 ABG HCO3 ABG O2 Saturation ABG Base Excess ABG Hemoglobin ABG Oxyhemoglobin VBG pH ABG Sodium ABG Potassium ABG Glucose Oxyhemoglobin Sodium Potassium Chloride Carbon Dioxide BUN Creatinine Glucose POC Glucose 121 H 128 H 177 H Lactic Acid Calcium Ferritin AST Alkaline Phosphatase Magnesium Lactate Dehydrogenase Total Creatine Kinase CK-MB (CK-2) C-Reactive Protein Total Protein Albumin Troponin T HDL Cholesterol Arterial Blood Glucose Urine WBC (Auto) Urine Creatinine Urine Total Protein Phenytoin Coronavirus (PCR) Crossmatch 08/02/20 08/02/20 08/03/20 11:25 12:34 00:08 WBC RBC Hgb Hct MCHC RDW Lymph % (Auto) [place] % (Auto) Eos % (Auto) Lymph # [place] # Lymph # (Auto) [place] # (Auto) Eos # (Auto) Seg Neutrophils % Seg Neuts % (Manual) Lymphocytes % (Manual) Seg Neutrophils # Seg Neutrophils # Man Lymphocytes # (Manual) Monocytes % (Manual) Eosinophils % (Manual) Monocytes # (Manual) Eosinophils # (Manual) D-Dimer Heparin Anti-Xa Level ABG pH 7.344 L POC ABG pCO2 POC ABG pO2 ABG pO2 101.1 H ABG HCO3 ABG O2 Saturation ABG Base Excess -4.5 L ABG Hemoglobin 6.6 L ABG Oxyhemoglobin VBG pH ABG Sodium ABG Potassium ABG Glucose Oxyhemoglobin Sodium Potassium Chloride Carbon Dioxide BUN Creatinine Glucose POC Glucose 196 H 141 H Lactic Acid Calcium Ferritin AST Alkaline Phosphatase Magnesium Lactate Dehydrogenase Total Creatine Kinase CK-MB (CK-2) C-Reactive Protein Total Protein Albumin Troponin T HDL Cholesterol Arterial Blood Glucose Urine WBC (Auto) Urine Creatinine Urine Total Protein Phenytoin Coronavirus (PCR) Crossmatch 08/03/20 08/03/20 08/03/20 04:38 04:38 04:38 WBC 14.3 H RBC 2.42 L Hgb 7.0 L Hct 21.5 L MCHC RDW 18.1 H Lymph % (Auto) [place] % (Auto) Eos % (Auto) Lymph # [place] # Lymph # (Auto) [place] # (Auto) Eos # (Auto) Seg Neutrophils % Seg Neuts % (Manual) Lymphocytes % (Manual) Seg Neutrophils # Seg Neutrophils # Man Lymphocytes # (Manual) Monocytes % (Manual) Eosinophils % (Manual) Monocytes # (Manual) Eosinophils # (Manual) D-Dimer Heparin Anti-Xa Level ABG pH POC ABG pCO2 POC ABG pO2 ABG pO2 ABG HCO3 ABG O2 Saturation ABG Base Excess ABG Hemoglobin ABG Oxyhemoglobin VBG pH ABG Sodium ABG Potassium ABG Glucose Oxyhemoglobin Sodium 130 L Potassium Chloride 90.1 L Carbon Dioxide 20 L BUN 105 H Creatinine 3.1 H Glucose 115 H POC Glucose Lactic Acid 0.40 L Calcium 8.2 L Ferritin AST Alkaline Phosphatase Magnesium Lactate Dehydrogenase Total Creatine Kinase CK-MB (CK-2) C-Reactive Protein Total Protein Albumin Troponin T HDL Cholesterol Arterial Blood Glucose Urine WBC (Auto) Urine Creatinine Urine Total Protein Phenytoin Coronavirus (PCR) Crossmatch 08/03/20 05:33 WBC RBC Hgb Hct MCHC RDW Lymph % (Auto) [place] % (Auto) Eos % (Auto) Lymph # [place] # Lymph # (Auto) [place] # (Auto) Eos # (Auto) Seg Neutrophils % Seg Neuts % (Manual) Lymphocytes % (Manual) Seg Neutrophils # Seg Neutrophils # Man Lymphocytes # (Manual) Monocytes % (Manual) Eosinophils % (Manual) Monocytes # (Manual) Eosinophils # (Manual) D-Dimer Heparin Anti-Xa Level ABG pH POC ABG pCO2 POC ABG pO2 ABG pO2 ABG HCO3 ABG O2 Saturation ABG Base Excess ABG Hemoglobin ABG Oxyhemoglobin VBG pH ABG Sodium ABG Potassium ABG Glucose Oxyhemoglobin Sodium Potassium Chloride Carbon Dioxide BUN Creatinine Glucose POC Glucose 117 H Lactic Acid Calcium Ferritin AST Alkaline Phosphatase Magnesium Lactate Dehydrogenase Total Creatine Kinase CK-MB (CK-2) C-Reactive Protein Total Protein Albumin Troponin T HDL Cholesterol Arterial Blood Glucose Urine WBC (Auto) Urine Creatinine Urine Total Protein Phenytoin Coronavirus (PCR) Crossmatch Prior PFT's, U/S of legs: other (No free air on KUB) Allied health notes reviewed: nursing
[2020-08-03] MEDS: amLODIPine 10 MG TAB PO SCH (10:51)
--- NOTE | 2020-08-03 10:55 | Progress Note ---
Assessment and Plan - Patient Problems (1) Acute kidney injury (AVANI) with acute tubular necrosis (ATN) Current Visit: Yes Status: Acute Plan to address problem: Kidney function had been worsening. Patient had poor diuretic response to Lasix IV. She also did not respond to Bumex and infusions with albumin infusion. Family had decided No Dialysis initially but now want Dialysis. s/p vas cath placement, pt was initiated on Hemodialysis over the weekend. Cont HD on MWF schedule for volume control/solute clearance (2) Pneumonia due to COVID-19 virus Current Visit: Yes Status: Acute Plan to address problem: Patient has completed course of Remdesevir. Completed course of steroids. (3) Acute hypoxemic respiratory failure Current Visit: Yes Status: Acute Plan to address problem: Being managed by pulmonary. S/p Extubation 06/12. Back on respirator. Continue management by pulmonary/critical care (4) Cardiac arrest Current Visit: Yes Status: Acute (5) Cardiomyopathy Current Visit: No Status: Acute Qualifiers: Cardiomyopathy type: unspecified Qualified Code(s): I42.9 - Cardiomyopathy, unspecified Plan to address problem: Patient has peripheral edema. Has not responded to Bumex infusion. started HD for volume control (6) Type 2 diabetes mellitus with diabetic chronic kidney disease Current Visit: Yes Status: Acute Plan to address problem: Blood sugar management by primary attending (7) Hyponatremia Current Visit: Yes Status: Acute Plan to address problem: likely hypervolemic nature, to correct volume status with HD Subjective Date of service: 08/03/20 Principal diagnosis: Ac hypoxemic resp failure; COVID-19; pneumonia; CHF; Pulm HTN; OHS; DM II Interval history: Pt remains on vent support. on vasopressor support with dopamin. I did not do physical exam at the bedside due to PPE conservation with the current COVID-19 pandemic. pt was initiated on HD over the weekend Objective - Vital Signs Vital signs: Vital Signs - 12hr 08/02/20 08/02/20 08/02/20 22:55 22:57 22:59 Temperature Pulse Rate 78 79 78 Pulse Rate [ From Monitor] Respiratory 19 15 16 Rate Blood Pressure 169/64 169/64 169/64 O2 Sat by Pulse 97 97 97 Oximetry O2 Sat by Pulse Oximetry [ Anterior Bilateral Throughout] 08/02/20 08/02/20 08/02/20 23:00 23:01 23:03 Temperature 97.2 F L Pulse Rate 78 78 78 Pulse Rate [ From Monitor] Respiratory 12 19 18 Rate Blood Pressure 159/57 159/57 159/57 O2 Sat by Pulse 96 97 97 Oximetry O2 Sat by Pulse 97 Oximetry [ Anterior Bilateral Throughout] 08/02/20 08/02/20 08/02/20 23:05 23:07 23:09 Temperature Pulse Rate 77 78 78 Pulse Rate [ From Monitor] Respiratory 15 18 18 Rate Blood Pressure 159/57 159/57 159/57 O2 Sat by Pulse 97 97 97 Oximetry O2 Sat by Pulse Oximetry [ Anterior Bilateral Throughout] 08/02/20 08/02/20 08/02/20 23:11 23:13 23:15 Temperature Pulse Rate 78 79 79 Pulse Rate [ From Monitor] Respiratory 16 14 14 Rate Blood Pressure 159/57 159/57 161/66 O2 Sat by Pulse 97 98 97 Oximetry O2 Sat by Pulse Oximetry [ Anterior Bilateral Throughout] 08/02/20 08/02/20 08/02/20 23:17 23:19 23:20 Temperature 97.2 F L Pulse Rate 79 79 Pulse Rate [ From Monitor] Respiratory 14 12 Rate Blood Pressure 161/66 161/66 O2 Sat by Pulse 98 98 Oximetry O2 Sat by Pulse Oximetry [ Anterior Bilateral Throughout] 08/02/20 08/02/20 08/02/20 23:21 23:23 23:25 Temperature Pulse Rate 80 80 80 Pulse Rate [ From Monitor] Respiratory 9 L 16 17 Rate Blood Pressure 161/66 161/66 161/66 O2 Sat by Pulse 97 98 98 Oximetry O2 Sat by Pulse Oximetry [ Anterior Bilateral Throughout] 08/02/20 08/02/20 08/02/20 23:27 23:29 23:31 Temperature Pulse Rate 80 78 80 Pulse Rate [ From Monitor] Respiratory 17 16 15 Rate Blood Pressure 161/66 161/66 174/60 O2 Sat by Pulse 98 97 98 Oximetry O2 Sat by Pulse Oximetry [ Anterior Bilateral Throughout] 08/02/20 08/02/20 08/02/20 23:33 23:35 23:37 Temperature Pulse Rate 79 79 78 Pulse Rate [ From Monitor] Respiratory 16 14 15 Rate Blood Pressure 174/60 174/60 174/60 O2 Sat by Pulse 98 98 97 Oximetry O2 Sat by Pulse Oximetry [ Anterior Bilateral Throughout] 08/02/20 08/02/20 08/02/20 23:39 23:41 23:43 Temperature Pulse Rate 76 77 76 Pulse Rate [ From Monitor] Respiratory 15 14 16 Rate Blood Pressure 174/60 174/60 174/60 O2 Sat by Pulse 97 98 97 Oximetry O2 Sat by Pulse Oximetry [ Anterior Bilateral Throughout] 08/02/20 08/02/20 08/02/20 23:45 23:46 23:47 Temperature Pulse Rate 75 78 76 Pulse Rate [ From Monitor] Respiratory 18 17 Rate Blood Pressure 163/43 174/60 163/43 O2 Sat by Pulse 98 97 98 Oximetry O2 Sat by Pulse Oximetry [ Anterior Bilateral Throughout] 08/02/20 08/02/20 08/02/20 23:49 23:51 23:53 Temperature Pulse Rate 75 75 75 Pulse Rate [ From Monitor] Respiratory 16 14 13 Rate Blood Pressure 163/43 163/43 163/43 O2 Sat by Pulse 98 97 98 Oximetry O2 Sat by Pulse Oximetry [ Anterior Bilateral Throughout] 08/02/20 08/02/20 08/02/20 23:55 23:57 23:59 Temperature Pulse Rate 66 63 62 Pulse Rate [ From Monitor] Respiratory 19 20 21 Rate Blood Pressure 163/43 163/43 163/43 O2 Sat by Pulse 98 98 98 Oximetry O2 Sat by Pulse Oximetry [ Anterior Bilateral Throughout] 08/03/20 08/03/20 08/03/20 00:00 00:01 00:03 Temperature Pulse Rate 78 62 63 Pulse Rate [ 77 From Monitor] Respiratory 15 17 19 Rate Blood Pressure 134/41 134/41 O2 Sat by Pulse 97 99 98 Oximetry O2 Sat by Pulse Oximetry [ Anterior Bilateral Throughout] 08/03/20 08/03/20 08/03/20 00:05 00:07 00:09 Temperature Pulse Rate 63 62 63 Pulse Rate [ From Monitor] Respiratory 17 15 14 Rate Blood Pressure 134/41 134/41 134/41 O2 Sat by Pulse 98 98 97 Oximetry O2 Sat by Pulse Oximetry [ Anterior Bilateral Throughout] 08/03/20 08/03/20 08/03/20 00:11 00:13 00:15 Temperature Pulse Rate 79 78 78 Pulse Rate [ From Monitor] Respiratory 17 16 17 Rate Blood Pressure 134/41 134/41 138/51 O2 Sat by Pulse 97 97 97 Oximetry O2 Sat by Pulse Oximetry [ Anterior Bilateral Throughout] 08/03/20 08/03/2020 00:17 00:19 00:21 Temperature Pulse Rate 78 75 77 Pulse Rate [ From Monitor] Respiratory 18 15 18 Rate Blood Pressure 138/51 138/51 138/51 O2 Sat by Pulse 98 98 97 Oximetry O2 Sat by Pulse Oximetry [ Anterior Bilateral Throughout] 08/03/20 08/03/20 08/03/20 00:23 00:25 00:27 Temperature Pulse Rate 77 76 75 Pulse Rate [ From Monitor] Respiratory 19 17 18 Rate Blood Pressure 138/51 138/51 138/51 O2 Sat by Pulse 98 98 98 Oximetry O2 Sat by Pulse Oximetry [ Anterior Bilateral Throughout] 08/03/20 08/03/20 08/03/20 00:29 00:30 00:31 Temperature Pulse Rate 74 76 74 Pulse Rate [ From Monitor] Respiratory 16 18 17 Rate Blood Pressure 138/51 145/44 145/44 O2 Sat by Pulse 97 97 97 Oximetry O2 Sat by Pulse Oximetry [ Anterior Bilateral Throughout] 08/03/20 08/03/20 08/03/20 00:33 00:35 00:37 Temperature Pulse Rate 75 76 75 Pulse Rate [ From Monitor] Respiratory 17 20 16 Rate Blood Pressure 145/44 145/44 145/44 O2 Sat by Pulse 97 97 98 Oximetry O2 Sat by Pulse Oximetry [ Anterior Bilateral Throughout] 08/03/20 08/03/20 08/03/20 00:39 00:41 00:43 Temperature Pulse Rate 76 74 75 Pulse Rate [ From Monitor] Respiratory 19 15 16 Rate Blood Pressure 145/44 145/44 145/44 O2 Sat by Pulse 97 97 97 Oximetry O2 Sat by Pulse Oximetry [ Anterior Bilateral Throughout] 08/03/20 08/03/20 08/03/20 00:45 00:47 00:49 Temperature Pulse Rate 75 75 74 Pulse Rate [ From Monitor] Respiratory 16 17 16 Rate Blood Pressure 153/54 153/54 153/54 O2 Sat by Pulse 97 98 97 Oximetry O2 Sat by Pulse Oximetry [ Anterior Bilateral Throughout] 08/03/20 08/03/20 08/03/20 00:51 00:53 00:55 Temperature Pulse Rate 75 75 74 Pulse Rate [ From Monitor] Respiratory 16 18 16 Rate Blood Pressure 153/54 153/54 153/54 O2 Sat by Pulse 97 98 97 Oximetry O2 Sat by Pulse Oximetry [ Anterior Bilateral Throughout] 08/03/20 08/03/20 08/03/20 00:57 00:59 01:00 Temperature Pulse Rate 75 74 75 Pulse Rate [ From Monitor] Respiratory 19 16 18 Rate Blood Pressure 153/54 153/54 154/52 O2 Sat by Pulse 97 98 98 Oximetry O2 Sat by Pulse Oximetry [ Anterior Bilateral Throughout] 08/03/20 08/03/20 08/03/20 01:01 01:03 01:05 Temperature Pulse Rate 76 74 75 Pulse Rate [ From Monitor] Respiratory 18 17 18 Rate Blood Pressure 154/52 154/52 154/52 O2 Sat by Pulse 98 97 98 Oximetry O2 Sat by Pulse Oximetry [ Anterior Bilateral Throughout] 08/03/20 08/03/20 08/03/20 01:07 01:09 01:11 Temperature Pulse Rate 75 74 74 Pulse Rate [ From Monitor] Respiratory 18 17 15 Rate Blood Pressure 154/52 154/52 154/52 O2 Sat by Pulse 98 98 97 Oximetry O2 Sat by Pulse Oximetry [ Anterior Bilateral Throughout] 08/03/20 08/03/20 08/03/20 01:13 01:15 01:17 Temperature Pulse Rate 75 74 75 Pulse Rate [ From Monitor] Respiratory 19 15 18 Rate Blood Pressure 154/52 145/56 145/56 O2 Sat by Pulse 98 98 98 Oximetry O2 Sat by Pulse Oximetry [ Anterior Bilateral Throughout] 08/03/20 08/03/20 08/03/20 01:19 01:21 01:23 Temperature Pulse Rate 74 74 75 Pulse Rate [ From Monitor] Respiratory 19 16 18 Rate Blood Pressure 145/56 145/56 145/56 O2 Sat by Pulse 98 97 98 Oximetry O2 Sat by Pulse Oximetry [ Anterior Bilateral Throughout] 08/03/20 08/03/20 08/03/20 01:25 01:27 01:29 Temperature Pulse Rate 74 75 75 Pulse Rate [ From Monitor] Respiratory 14 18 15 Rate Blood Pressure 145/56 145/56 145/56 O2 Sat by Pulse 97 98 98 Oximetry O2 Sat by Pulse Oximetry [ Anterior Bilateral Throughout] 08/03/20 08/03/20 08/03/20 01:30 01:31 01:33 Temperature Pulse Rate 75 74 75 Pulse Rate [ From Monitor] Respiratory 17 15 18 Rate Blood Pressure 154/58 154/58 154/58 O2 Sat by Pulse 98 97 98 Oximetry O2 Sat by Pulse Oximetry [ Anterior Bilateral Throughout] 08/03/20 08/03/20 08/03/20 01:35 01:37 01:39 Temperature Pulse Rate 73 75 74 Pulse Rate [ From Monitor] Respiratory 16 18 15 Rate Blood Pressure 154/58 154/58 154/58 O2 Sat by Pulse 97 98 97 Oximetry O2 Sat by Pulse Oximetry [ Anterior Bilateral Throughout] 08/03/20 08/03/20 08/03/20 01:41 01:43 01:45 Temperature Pulse Rate 75 73 75 Pulse Rate [ From Monitor] Respiratory 18 15 18 Rate Blood Pressure 154/58 154/58 147/58 O2 Sat by Pulse 98 97 98 Oximetry O2 Sat by Pulse Oximetry [ Anterior Bilateral Throughout] 08/03/20 08/03/20 08/03/20 01:47 01:49 01:50 Temperature Pulse Rate 74 75 74 Pulse Rate [ From Monitor] Respiratory 15 18 16 Rate Blood Pressure 147/58 147/58 147/58 O2 Sat by Pulse 97 98 97 Oximetry O2 Sat by Pulse Oximetry [ Anterior Bilateral Throughout] 08/03/20 08/03/20 08/03/20 01:51 01:53 01:55 Temperature Pulse Rate 75 75 74 Pulse Rate [ From Monitor] Respiratory 18 19 13 Rate Blood Pressure 147/58 147/58 147/58 O2 Sat by Pulse 98 98 97 Oximetry O2 Sat by Pulse Oximetry [ Anterior Bilateral Throughout] 08/03/20 08/03/20 08/03/20 01:57 01:59 02:00 Temperature Pulse Rate 74 74 74 Pulse Rate [ From Monitor] Respiratory 17 19 17 Rate Blood Pressure 147/58 147/58 148/55 O2 Sat by Pulse 97 98 97 Oximetry O2 Sat by Pulse Oximetry [ Anterior Bilateral Throughout] 08/03/20 08/03/20 08/03/20 02:01 02:03 02:05 Temperature Pulse Rate 73 75 74 Pulse Rate [ From Monitor] Respiratory 15 18 15 Rate Blood Pressure 148/55 148/55 148/55 O2 Sat by Pulse 97 98 97 Oximetry O2 Sat by Pulse Oximetry [ Anterior Bilateral Throughout] 08/03/20 08/03/20 08/03/20 02:07 02:09 02:11 Temperature Pulse Rate 74 74 75 Pulse Rate [ From Monitor] Respiratory 15 15 19 Rate Blood Pressure 148/55 148/55 148/55 O2 Sat by Pulse 97 98 98 Oximetry O2 Sat by Pulse Oximetry [ Anterior Bilateral Throughout] 08/03/20 08/03/20 08/03/20 02:13 02:15 03:17 Temperature Pulse Rate 73 74 62 Pulse Rate [ From Monitor] Respiratory 15 14 19 Rate Blood Pressure 147/58 146/50 143/56 O2 Sat by Pulse 97 98 98 Oximetry O2 Sat by Pulse Oximetry [ Anterior Bilateral Throughout] 08/03/20 08/03/20 08/03/20 03:19 03:21 03:23 Temperature Pulse Rate 61 62 62 Pulse Rate [ From Monitor] Respiratory 17 17 18 Rate Blood Pressure 143/56 143/56 143/56 O2 Sat by Pulse 98 98 98 Oximetry O2 Sat by Pulse Oximetry [ Anterior Bilateral Throughout] 08/03/20 08/03/20 08/03/20 03:25 03:27 03:29 Temperature 98.2 F Pulse Rate 62 64 78 Pulse Rate [ From Monitor] Respiratory 15 17 18 Rate Blood Pressure 143/56 143/56 143/56 O2 Sat by Pulse 98 98 97 Oximetry O2 Sat by Pulse Oximetry [ Anterior Bilateral Throughout] 08/03/20 08/03/20 08/03/20 03:30 03:31 03:33 Temperature Pulse Rate 78 77 77 Pulse Rate [ From Monitor] Respiratory 16 16 18 Rate Blood Pressure 154/65 154/65 154/65 O2 Sat by Pulse 97 98 98 Oximetry O2 Sat by Pulse Oximetry [ Anterior Bilateral Throughout] 08/03/20 08/03/20 08/03/20 03:35 03:36 03:37 Temperature Pulse Rate 76 75 76 Pulse Rate [ From Monitor] Respiratory 18 14 18 Rate Blood Pressure 154/65 148/55 154/65 O2 Sat by Pulse 98 98 98 Oximetry O2 Sat by Pulse Oximetry [ Anterior Bilateral Throughout] 08/03/20 08/03/20 08/03/20 03:39 03:41 03:43 Temperature Pulse Rate 74 74 74 Pulse Rate [ From Monitor] Respiratory 14 15 15 Rate Blood Pressure 154/65 154/65 154/65 O2 Sat by Pulse 97 97 97 Oximetry O2 Sat by Pulse Oximetry [ Anterior Bilateral Throughout] 08/03/20 08/03/20 08/03/20 03:45 03:47 03:49 Temperature Pulse Rate 73 74 75 Pulse Rate [ From Monitor] Respiratory 16 16 17 Rate Blood Pressure 155/50 155/50 155/50 O2 Sat by Pulse 98 98 98 Oximetry O2 Sat by Pulse Oximetry [ Anterior Bilateral Throughout] 08/03/20 08/03/20 08/03/20 03:51 03:53 03:55 Temperature Pulse Rate 73 73 73 Pulse Rate [ From Monitor] Respiratory 14 14 15 Rate Blood Pressure 155/50 155/50 155/50 O2 Sat by Pulse 97 97 98 Oximetry O2 Sat by Pulse Oximetry [ Anterior Bilateral Throughout] 08/03/20 08/03/20 08/03/20 03:57 03:58 03:59 Temperature Pulse Rate 73 73 73 Pulse Rate [ From Monitor] Respiratory 17 16 18 Rate Blood Pressure 155/50 155/50 155/50 O2 Sat by Pulse 98 98 98 Oximetry O2 Sat by Pulse Oximetry [ Anterior Bilateral Throughout] 08/03/20 08/03/20 08/03/20 04:00 04:01 04:03 Temperature Pulse Rate 73 72 73 Pulse Rate [ 74 From Monitor] Respiratory 17 14 16 Rate Blood Pressure 140/58 140/58 140/58 O2 Sat by Pulse 99 98 98 Oximetry O2 Sat by Pulse Oximetry [ Anterior Bilateral Throughout] 08/03/20 08/03/20 08/03/20 04:05 04:06 04:07 Temperature Pulse Rate 72 74 72 Pulse Rate [ From Monitor] Respiratory 14 17 15 Rate Blood Pressure 140/58 140/58 140/58 O2 Sat by Pulse 98 98 98 Oximetry O2 Sat by Pulse Oximetry [ Anterior Bilateral Throughout] 08/03/20 08/03/20 08/03/20 04:09 04:11 04:13 Temperature Pulse Rate 73 73 74 Pulse Rate [ From Monitor] Respiratory 15 16 18 Rate Blood Pressure 140/58 140/58 140/58 O2 Sat by Pulse 98 98 98 Oximetry O2 Sat by Pulse Oximetry [ Anterior Bilateral Throughout] 08/03/20 08/03/20 08/03/20 04:15 04:17 04:19 Temperature Pulse Rate 73 73 73 Pulse Rate [ From Monitor] Respiratory 18 18 17 Rate Blood Pressure 153/55 153/55 153/55 O2 Sat by Pulse 98 98 98 Oximetry O2 Sat by Pulse Oximetry [ Anterior Bilateral Throughout] 08/03/20 08/03/20 08/03/20 04:21 04:23 04:25 Temperature Pulse Rate 61 61 60 Pulse Rate [ From Monitor] Respiratory 16 15 16 Rate Blood Pressure 153/55 153/55 153/55 O2 Sat by Pulse 99 98 98 Oximetry O2 Sat by Pulse Oximetry [ Anterior Bilateral Throughout] 08/03/20 08/03/20 08/03/20 04:27 04:29 04:31 Temperature Pulse Rate 61 60 62 Pulse Rate [ From Monitor] Respiratory 15 15 15 Rate Blood Pressure 153/55 153/55 143/53 O2 Sat by Pulse 99 98 99 Oximetry O2 Sat by Pulse Oximetry [ Anterior Bilateral Throughout] 08/03/20 08/03/20 08/03/20 04:33 04:34 04:35 Temperature Pulse Rate 63 62 63 Pulse Rate [ From Monitor] Respiratory 16 18 Rate Blood Pressure 143/53 143/53 143/53 O2 Sat by Pulse 98 99 99 Oximetry O2 Sat by Pulse Oximetry [ Anterior Bilateral Throughout] 08/03/20 08/03/20 08/03/20 04:37 04:39 04:41 Temperature Pulse Rate 79 78 75 Pulse Rate [ From Monitor] Respiratory 14 15 15 Rate Blood Pressure 143/53 143/53 143/53 O2 Sat by Pulse 100 98 98 Oximetry O2 Sat by Pulse Oximetry [ Anterior Bilateral Throughout] 08/03/20 08/03/20 08/03/20 04:43 04:45 04:59 Temperature Pulse Rate 75 74 74 Pulse Rate [ From Monitor] Respiratory 17 16 15 Rate Blood Pressure 143/53 149/65 153/55 O2 Sat by Pulse 98 99 98 Oximetry O2 Sat by Pulse Oximetry [ Anterior Bilateral Throughout] 08/03/20 08/03/20 08/03/20 05:00 05:01 05:03 Temperature Pulse Rate 73 74 73 Pulse Rate [ From Monitor] Respiratory 14 16 15 Rate Blood Pressure 148/51 148/51 148/51 O2 Sat by Pulse 98 98 98 Oximetry O2 Sat by Pulse Oximetry [ Anterior Bilateral Throughout] 08/03/20 08/03/20 08/03/20 05:05 05:07 05:09 Temperature Pulse Rate 75 74 74 Pulse Rate [ From Monitor] Respiratory 18 19 18 Rate Blood Pressure 148/51 148/51 148/51 O2 Sat by Pulse 98 98 98 Oximetry O2 Sat by Pulse Oximetry [ Anterior Bilateral Throughout] 08/03/20 08/03/20 08/03/20 05:11 05:13 05:15 Temperature Pulse Rate 73 75 75 Pulse Rate [ From Monitor] Respiratory 14 18 18 Rate Blood Pressure 148/51 148/51 152/60 O2 Sat by Pulse 97 98 98 Oximetry O2 Sat by Pulse Oximetry [ Anterior Bilateral Throughout] 08/03/20 08/03/20 08/03/20 05:17 05:19 05:21 Temperature Pulse Rate 74 74 74 Pulse Rate [ From Monitor] Respiratory 15 16 17 Rate Blood Pressure 152/60 152/60 152/60 O2 Sat by Pulse 98 98 97 Oximetry O2 Sat by Pulse Oximetry [ Anterior Bilateral Throughout] 08/03/20 08/03/20 08/03/20 05:23 05:25 05:27 Temperature Pulse Rate 73 74 74 Pulse Rate [ From Monitor] Respiratory 15 16 15 Rate Blood Pressure 152/60 152/60 152/60 O2 Sat by Pulse 98 98 98 Oximetry O2 Sat by Pulse Oximetry [ Anterior Bilateral Throughout] 08/03/20 08/03/20 08/03/20 05:29 05:30 05:31 Temperature Pulse Rate 75 74 75 Pulse Rate [ From Monitor] Respiratory 16 14 17 Rate Blood Pressure 152/60 145/60 145/60 O2 Sat by Pulse 98 98 98 Oximetry O2 Sat by Pulse Oximetry [ Anterior Bilateral Throughout] 08/03/20 08/03/20 08/03/20 05:33 05:35 05:37 Temperature Pulse Rate 75 75 73 Pulse Rate [ From Monitor] Respiratory 16 18 15 Rate Blood Pressure 145/60 145/60 145/60 O2 Sat by Pulse 98 98 98 Oximetry O2 Sat by Pulse Oximetry [ Anterior Bilateral Throughout] 08/03/20 08/03/20 08/03/20 05:39 05:41 05:43 Temperature Pulse Rate 74 74 74 Pulse Rate [ From Monitor] Respiratory 17 17 15 Rate Blood Pressure 145/60 145/60 145/60 O2 Sat by Pulse 98 98 98 Oximetry O2 Sat by Pulse Oximetry [ Anterior Bilateral Throughout] 08/03/20 08/03/20 08/03/20 05:45 05:47 05:49 Temperature Pulse Rate 62 62 60 Pulse Rate [ From Monitor] Respiratory 18 20 16 Rate Blood Pressure 140/46 140/46 140/46 O2 Sat by Pulse 99 98 99 Oximetry O2 Sat by Pulse Oximetry [ Anterior Bilateral Throughout] 08/03/20 08/03/20 08/03/20 05:51 05:53 05:55 Temperature Pulse Rate 61 61 61 Pulse Rate [ From Monitor] Respiratory 18 15 15 Rate Blood Pressure 140/46 140/46 140/46 O2 Sat by Pulse 99 98 98 Oximetry O2 Sat by Pulse Oximetry [ Anterior Bilateral Throughout] 08/03/20 08/03/20 08/03/20 05:57 05:59 06:00 Temperature Pulse Rate 63 61 62 Pulse Rate [ From Monitor] Respiratory 17 18 16 Rate Blood Pressure 140/46 140/46 130/55 O2 Sat by Pulse 98 98 98 Oximetry O2 Sat by Pulse Oximetry [ Anterior Bilateral Throughout] 08/03/20 08/03/20 08/03/20 06:01 06:03 06:05 Temperature Pulse Rate 68 78 76 Pulse Rate [ From Monitor] Respiratory 16 8 L 15 Rate Blood Pressure 130/55 130/55 130/55 O2 Sat by Pulse 98 98 97 Oximetry O2 Sat by Pulse Oximetry [ Anterior Bilateral Throughout] 08/03/20 08/03/20 08/03/20 06:07 06:09 06:11 Temperature Pulse Rate 74 73 73 Pulse Rate [ From Monitor] Respiratory 15 16 18 Rate Blood Pressure 130/55 130/55 130/55 O2 Sat by Pulse 97 98 98 Oximetry O2 Sat by Pulse Oximetry [ Anterior Bilateral Throughout] 08/03/20 08/03/20 08/03/20 06:13 06:15 06:17 Temperature Pulse Rate 72 71 70 Pulse Rate [ From Monitor] Respiratory 18 15 17 Rate Blood Pressure 130/55 126/26 126/26 O2 Sat by Pulse 98 98 99 Oximetry O2 Sat by Pulse Oximetry [ Anterior Bilateral Throughout] 08/03/20 08/03/20 08/03/20 06:19 06:21 06:23 Temperature Pulse Rate 70 70 68 Pulse Rate [ From Monitor] Respiratory 15 17 14 Rate Blood Pressure 126/26 126/26 126/26 O2 Sat by Pulse 98 98 98 Oximetry O2 Sat by Pulse Oximetry [ Anterior Bilateral Throughout] 08/03/20 08/03/20 08/03/20 06:25 06:27 06:29 Temperature Pulse Rate 69 67 68 Pulse Rate [ From Monitor] Respiratory 15 16 17 Rate Blood Pressure 126/26 126/26 126/26 O2 Sat by Pulse 99 99 99 Oximetry O2 Sat by Pulse Oximetry [ Anterior Bilateral Throughout] 08/03/20 08/03/20 08/03/20 06:31 07:15 07:17 Temperature Pulse Rate 67 57 L 57 L Pulse Rate [ From Monitor] Respiratory 17 15 16 Rate Blood Pressure 118/37 121/39 121/39 O2 Sat by Pulse 99 98 98 Oximetry O2 Sat by Pulse Oximetry [ Anterior Bilateral Throughout] 08/03/20 08/03/20 08/03/20 07:19 07:21 07:23 Temperature Pulse Rate 58 L 59 L 55 L Pulse Rate [ From Monitor] Respiratory 15 18 14 Rate Blood Pressure 121/39 121/39 121/39 O2 Sat by Pulse 99 99 98 Oximetry O2 Sat by Pulse Oximetry [ Anterior Bilateral Throughout] 08/03/20 08/03/20 08/03/20 07:25 07:27 07:29 Temperature Pulse Rate 58 L 58 L 57 L Pulse Rate [ From Monitor] Respiratory 19 13 16 Rate Blood Pressure 121/39 121/39 121/39 O2 Sat by Pulse 98 98 97 Oximetry O2 Sat by Pulse Oximetry [ Anterior Bilateral Throughout] 08/03/20 08/03/20 08/03/20 07:31 07:33 07:35 Temperature Pulse Rate 57 L 56 L 58 L Pulse Rate [ From Monitor] Respiratory 15 15 15 Rate Blood Pressure 124/34 124/34 124/34 O2 Sat by Pulse 98 98 99 Oximetry O2 Sat by Pulse Oximetry [ Anterior Bilateral Throughout] 08/03/20 08/03/20 08/03/20 07:37 07:39 07:41 Temperature Pulse Rate 60 58 L 57 L Pulse Rate [ From Monitor] Respiratory 15 18 19 Rate Blood Pressure 124/34 124/34 124/34 O2 Sat by Pulse 98 99 99 Oximetry O2 Sat by Pulse Oximetry [ Anterior Bilateral Throughout] 08/03/20 08/03/20 08/03/20 07:43 07:45 07:47 Temperature Pulse Rate 58 L 57 L 59 L Pulse Rate [ From Monitor] Respiratory 19 13 17 Rate Blood Pressure 124/34 121/48 121/48 O2 Sat by Pulse 99 99 98 Oximetry O2 Sat by Pulse Oximetry [ Anterior Bilateral Throughout] 08/03/20 08/03/20 08/03/20 07:49 07:50 07:51 Temperature Pulse Rate 57 L 59 L 60 Pulse Rate [ From Monitor] Respiratory 15 17 18 Rate Blood Pressure 121/48 121/48 121/48 O2 Sat by Pulse 98 99 98 Oximetry O2 Sat by Pulse Oximetry [ Anterior Bilateral Throughout] 08/03/20 08/03/20 08/03/20 07:53 07:55 07:57 Temperature Pulse Rate 59 L 58 L 57 L Pulse Rate [ From Monitor] Respiratory 18 19 15 Rate Blood Pressure 121/48 121/48 121/48 O2 Sat by Pulse 99 99 98 Oximetry O2 Sat by Pulse Oximetry [ Anterior Bilateral Throughout] 08/03/20 08/03/20 08/03/20 07:59 08:00 08:01 Temperature 97.7 F Pulse Rate 58 L 58 L 58 L Pulse Rate [ 58 L From Monitor] Respiratory 15 14 16 Rate Blood Pressure 121/48 126/38 120/58 O2 Sat by Pulse 98 99 99 Oximetry O2 Sat by Pulse Oximetry [ Anterior Bilateral Throughout] 08/03/20 08/03/20 08/03/20 08:03 08:05 08:07 Temperature Pulse Rate 57 L 55 L 57 L Pulse Rate [ From Monitor] Respiratory 19 15 19 Rate Blood Pressure 120/58 120/58 120/58 O2 Sat by Pulse 99 98 99 Oximetry O2 Sat by Pulse Oximetry [ Anterior Bilateral Throughout] 08/03/20 08/03/20 08/03/20 08:09 08:11 08:13 Temperature Pulse Rate 58 L 57 L 60 Pulse Rate [ From Monitor] Respiratory 15 15 18 Rate Blood Pressure 120/58 120/58 120/58 O2 Sat by Pulse 99 98 99 Oximetry O2 Sat by Pulse Oximetry [ Anterior Bilateral Throughout] 08/03/20 08/03/20 08/03/20 08:15 08:17 08:19 Temperature Pulse Rate 56 L 59 L 56 L Pulse Rate [ From Monitor] Respiratory 15 17 18 Rate Blood Pressure 116/38 116/38 116/38 O2 Sat by Pulse 99 99 99 Oximetry O2 Sat by Pulse Oximetry [ Anterior Bilateral Throughout] 08/03/20 08/03/20 08/03/20 08:21 08:23 08:25 Temperature Pulse Rate 55 L 57 L 57 L Pulse Rate [ From Monitor] Respiratory 15 18 16 Rate Blood Pressure 121/48 121/48 121/48 O2 Sat by Pulse 99 99 98 Oximetry O2 Sat by Pulse Oximetry [ Anterior Bilateral Throughout] 08/03/20 08/03/20 08/03/20 08:27 08:29 08:30 Temperature Pulse Rate 59 L 56 L 56 L Pulse Rate [ From Monitor] Respiratory 18 17 15 Rate Blood Pressure 121/48 121/48 126/40 O2 Sat by Pulse 99 99 99 Oximetry O2 Sat by Pulse Oximetry [ Anterior Bilateral Throughout] 08/03/20 08/03/20 08/03/20 08:31 08:33 08:35 Temperature Pulse Rate 57 L 58 L 59 L Pulse Rate [ From Monitor] Respiratory 16 18 20 Rate Blood Pressure 126/40 126/40 126/40 O2 Sat by Pulse 99 99 100 Oximetry O2 Sat by Pulse Oximetry [ Anterior Bilateral Throughout] 08/03/20 08/03/20 08/03/20 08:37 08:39 08:41 Temperature Pulse Rate 59 L 59 L 58 L Pulse Rate [ From Monitor] Respiratory 19 17 16 Rate Blood Pressure 126/40 126/40 126/40 O2 Sat by Pulse 100 99 99 Oximetry O2 Sat by Pulse Oximetry [ Anterior Bilateral Throughout] 08/03/20 08/03/20 08/03/20 08:43 08:45 08:47 Temperature Pulse Rate 58 L 58 L 58 L Pulse Rate [ From Monitor] Respiratory 17 15 15 Rate Blood Pressure 126/40 128/41 128/41 O2 Sat by Pulse 99 98 99 Oximetry O2 Sat by Pulse Oximetry [ Anterior Bilateral Throughout] 08/03/20 08/03/20 08/03/20 08:50 09:09 09:11 Temperature Pulse Rate 70 56 L 57 L Pulse Rate [ From Monitor] Respiratory 18 15 16 Rate Blood Pressure 125/37 119/39 119/39 O2 Sat by Pulse 95 99 99 Oximetry O2 Sat by Pulse Oximetry [ Anterior Bilateral Throughout] 08/03/20 08/03/20 08/03/20 09:13 09:15 09:17 Temperature Pulse Rate 58 L 56 L 58 L Pulse Rate [ From Monitor] Respiratory 15 15 15 Rate Blood Pressure 119/39 122/42 122/42 O2 Sat by Pulse 99 99 99 Oximetry O2 Sat by Pulse Oximetry [ Anterior Bilateral Throughout] 08/03/20 08/03/20 08/03/20 09:19 09:21 09:23 Temperature Pulse Rate 57 L 58 L 56 L Pulse Rate [ From Monitor] Respiratory 15 17 15 Rate Blood Pressure 122/42 122/42 122/42 O2 Sat by Pulse 100 100 100 Oximetry O2 Sat by Pulse Oximetry [ Anterior Bilateral Throughout] 08/03/20 08/03/20 08/03/20 09:25 09:27 09:29 Temperature Pulse Rate 57 L 58 L 58 L Pulse Rate [ From Monitor] Respiratory 15 16 17 Rate Blood Pressure 122/42 122/42 122/42 O2 Sat by Pulse 99 99 99 Oximetry O2 Sat by Pulse Oximetry [ Anterior Bilateral Throughout] 08/03/20 08/03/20 08/03/20 09:31 09:33 09:35 Temperature Pulse Rate 57 L 57 L 59 L Pulse Rate [ From Monitor] Respiratory 15 14 15 Rate Blood Pressure 126/38 126/38 126/38 O2 Sat by Pulse 99 99 99 Oximetry O2 Sat by Pulse Oximetry [ Anterior Bilateral Throughout] 08/03/20 08/03/20 08/03/20 09:37 09:39 09:41 Temperature Pulse Rate 58 L 58 L 56 L Pulse Rate [ From Monitor] Respiratory 17 17 17 Rate Blood Pressure 126/38 126/38 126/38 O2 Sat by Pulse 99 99 100 Oximetry O2 Sat by Pulse Oximetry [ Anterior Bilateral Throughout] 08/03/20 08/03/20 08/03/20 09:43 09:45 09:47 Temperature Pulse Rate 58 L 57 L 57 L Pulse Rate [ From Monitor] Respiratory 19 19 19 Rate Blood Pressure 126/38 123/43 123/43 O2 Sat by Pulse 99 100 100 Oximetry O2 Sat by Pulse Oximetry [ Anterior Bilateral Throughout] 08/03/20 08/03/20 08/03/20 09:49 09:51 09:53 Temperature Pulse Rate 60 58 L 58 L Pulse Rate [ From Monitor] Respiratory 17 19 18 Rate Blood Pressure 123/43 123/43 123/43 O2 Sat by Pulse 100 98 97 Oximetry O2 Sat by Pulse Oximetry [ Anterior Bilateral Throughout] 08/03/20 08/03/20 08/03/20 09:55 09:57 09:59 Temperature Pulse Rate 52 L 52 L 52 L Pulse Rate [ From Monitor] Respiratory 18 18 15 Rate Blood Pressure 123/43 123/43 123/43 O2 Sat by Pulse 98 98 98 Oximetry O2 Sat by Pulse Oximetry [ Anterior Bilateral Throughout] 08/03/20 08/03/20 08/03/20 10:01 10:03 10:05 Temperature Pulse Rate 51 L 50 L 49 L Pulse Rate [ From Monitor] Respiratory 17 21 18 Rate Blood Pressure 123/43 123/43 123/43 O2 Sat by Pulse 97 97 96 Oximetry O2 Sat by Pulse Oximetry [ Anterior Bilateral Throughout] 10/26/20 10/26/20 10/26/20 10:06 10:07 10:09 Temperature Pulse Rate 49 L 49 L 50 L Pulse Rate [ From Monitor] Respiratory 24 23 24 Rate Blood Pressure 102/30 102/30 102/30 O2 Sat by Pulse 97 97 96 Oximetry O2 Sat by Pulse Oximetry [ Anterior Bilateral Throughout] 08/03/20 08/03/20 08/03/20 10:11 10:13 10:15 Temperature Pulse Rate 68 68 69 Pulse Rate [ From Monitor] Respiratory 19 17 17 Rate Blood Pressure 121/37 121/37 125/37 O2 Sat by Pulse 96 94 96 Oximetry O2 Sat by Pulse Oximetry [ Anterior Bilateral Throughout] 08/03/20 08/03/20 08/03/20 10:17 10:19 10:21 Temperature Pulse Rate 70 69 68 Pulse Rate [ From Monitor] Respiratory 17 17 18 Rate Blood Pressure 125/37 125/37 125/37 O2 Sat by Pulse 95 96 97 Oximetry O2 Sat by Pulse Oximetry [ Anterior Bilateral Throughout] 08/03/20 08/03/20 08/03/20 10:23 10:25 10:27 Temperature Pulse Rate 67 68 68 Pulse Rate [ From Monitor] Respiratory 17 17 19 Rate Blood Pressure 125/37 125/37 125/37 O2 Sat by Pulse 96 97 98 Oximetry O2 Sat by Pulse Oximetry [ Anterior Bilateral Throughout] 08/03/20 08/03/20 08/03/20 10:29 10:31 10:33 Temperature Pulse Rate 51 L 48 L 47 L Pulse Rate [ From Monitor] Respiratory 13 20 25 H Rate Blood Pressure 125/37 99/29 99/29 O2 Sat by Pulse 97 96 96 Oximetry O2 Sat by Pulse Oximetry [ Anterior Bilateral Throughout] 08/03/20 08/03/20 08/03/20 10:35 10:37 10:39 Temperature Pulse Rate 47 L 47 L 46 L Pulse Rate [ From Monitor] Respiratory 23 24 0 L Rate Blood Pressure 99/29 99/29 99/29 O2 Sat by Pulse 96 95 94 Oximetry O2 Sat by Pulse Oximetry [ Anterior Bilateral Throughout] 08/03/20 08/03/20 08/03/20 10:41 10:43 10:45 Temperature Pulse Rate 47 L 46 L 48 L Pulse Rate [ From Monitor] Respiratory 19 21 20 Rate Blood Pressure 99/29 99/29 108/35 O2 Sat by Pulse 96 95 96 Oximetry O2 Sat by Pulse Oximetry [ Anterior Bilateral Throughout] - Lab 08/03/20 04:38 08/03/20 04:38 Most recent lab results ABG pH 7.344 pH Units (7.350-7.450) L 08/02/20 11:25 ABG pCO2 39.0 mm Hg 08/02/20 11:25 ABG pO2 101.1 mm Hg (80.0-90.0) H 08/02/20 11:25 ABG HCO3 20.8 mmol/L (20.0-26.0) 08/02/20 11:25 ABG O2 Saturation 97.5 % (95.0-99.0) 08/02/20 11:25 Calcium 8.2 mg/dL (8.4-10.2) L 08/03/20 04:38 Magnesium 2.70 mg/dL (1.7-2.3) H 07/28/20 04:30 Urine Creatinine 33.3 mg/dL (0.1-20.0) H 07/06/20 13:20 Urine Sodium 21 mmol/L 07/06/20 13:20 Urine Total Protein 196 mg/dL (5-11.8) H 06/06/20 04:00 Medications & Allergies - Medications Allergies/Adverse Reactions: Allergies No Known Allergies Allergy (Verified 01/21/20 12:28) Home Medications: Home Medications Medication Instructions Recorded Confirmed Last Taken Type AtorvaSTATin [Lipitor] 20 mg PO QHS 05/12/20 05/29/20 Unknown History lisinopriL [Zestril TAB] 40 mg PO QDAY 05/12/20 05/29/20 Unknown History metFORMIN [Glucophage] 850 mg PO BID 05/12/20 05/29/20 Unknown History Acetaminophen [Acetaminophen TAB] 650 mg PO Q4H PRN tablet 05/13/20 05/29/20 Unknown Rx Dicyclomine [Bentyl] 20 mg PO BID #20 tablet 05/13/20 05/29/20 Unknown Rx Famotidine [Pepcid] 20 mg PO BID #30 tablet 05/13/20 05/29/20 Unknown Rx carvediloL [Coreg] 6.25 mg PO BID #60 05/13/20 05/29/20 Unknown Rx Active Medications: Generic Name Dose Route Start Last Admin Trade Name Freq PRN Reason Stop Dose Admin Acetaminophen 650 mg 06/09/20 10:57 06/29/20 21:18 Tylenol FEEDTUBE 650 mg Q6H PRN Administration Fever >101 Amlodipine Besylate 10 mg 06/02/20 11:00 08/03/20 10:51 Amlodipine PO Not Given DAILY NELSON Lipase/Protease/Amylase 1 each 05/29/20 13:39 07/07/20 10:[address] 10,500 Unit FEEDTUBE 1 each PRN PRN Administration For Clogged Feeding Tube Epoetin Javon 10,000 unit 07/29/20 11:29 08/02/20 22:45 Procrit IV 10,000 unit SCOTTY PRN Administration hemodialysis Glycopyrrolate 2 mg 06/09/20 14:00 08/03/20 08:45 Glycopyrrolate PO Not Given TID NELSON Heparin Sodium (Porcine) 5,000 unit 06/30/20 14:00 08/03/20 05:55 Heparin SUB-Q 5,000 unit Q8HR NELSON Administration Heparin Sodium (Porcine) 5,000 unit 07/29/20 11:29 08/02/20 23:15 Heparin IV 5,000 unit SCOTTY PRN Administration hemodialysis Hydralazine HCl 100 mg 07/14/20 14:00 08/03/20 08:45 Apresoline PO Not Given TID NELSON Hydrophilic Ointment 1 applic 05/28/20 13:49 Vaseline Lip Therapy TP Q2HR PRN Dry Lips Norepinephrine 4 mg in 250 mls @ 7.5 mls/hr 07/23/20 20:00 07/24/20 07:15 Levophed Drip 4 Mg/Ns 250 Ml IV 0 mcg/min TITR NELSON 0 mls/hr Titration Protocol 2 MCG/MIN Dopamine HCl/Dextrose 800 mg in 250 mls @ 4.613 mls/hr 07/24/20 11:30 08/03/20 06:04 Intropin Drip 800 Mg/D5w 250 Ml IV 6 mcg/kg/min TITR NELSON 13.838 mls/hr Administration Protocol 2 MCG/KG/MIN Levetiracetam 1,000 mg/ 110 mls @ 400 mls/hr 08/03/20 10:00 08/03/20 09:45 Dextrose IV 400 mls/hr Q12HR NELSON Administration Phenytoin 150 mg/ Sodium 103 mls @ 408 mls/hr 08/03/20 09:00 08/03/20 09:45 Chloride IV 408 mls/hr Q8HR COUNT INCLUDES THE [facility] Administration Sodium Chloride 100 mls @ 999 mls/hr 08/03/20 09:35 Nacl 0.9% IV SCOTTY PRN Hypotension Insulin Glargine 10 units 06/08/20 22:00 08/03/20 00:20 Lantus SUB-Q Not Given QHS COUNT INCLUDES THE [facility] Insulin Human Lispro 0 unit 05/29/20 18:00 08/03/20 06:04 Humalog SUB-Q Not Given Q6H COUNT INCLUDES THE [facility] Protocol Labetalol HCl 20 mg 06/03/20 09:00 07/31/20 12:14 Labetalol IV 20 mg Q4H PRN Administration HYPERTENSION Minoxidil 5 mg 07/21/20 10:00 08/03/20 10:51 Loniten PO Not Given BID COUNT INCLUDES THE [facility] Multi-Ingred Cream/Lotion/Oil/Oint 1 applic 05/28/20 13:49 Artificial Tears Ophth Oint OU Q4HR PRN Dry Eye(s) Ondansetron HCl 4 mg 06/02/20 09:00 06/09/20 16:48 Zofran IV 4 mg Q8H PRN Administration Nausea And Vomiting Pantoprazole Sodium 40 mg 08/03/20 10:00 08/03/20 09:46 Protonix IV 40 mg QDAY COUNT INCLUDES THE [facility] Administration Senna 17.6 mg 06/03/20 10:00 08/03/20 10:51 Senokot FEEDTUBE Not Given BID COUNT INCLUDES THE [facility] Simple Syrup 15 ml 05/29/20 13:39 Simple Syrup FEEDTUBE PRN PRN Hypoglycemia Simple Syrup 30 ml 05/29/20 13:39 Simple Syrup FEEDTUBE PRN PRN Hypoglycemia Sodium Bicarbonate 325 mg 05/29/20 13:39 07/07/20 10:36 Sodium Bicarbonate FEEDTUBE 325 mg PRN PRN Administration For Clogged Feeding Tube Sodium Chloride 10 ml 05/28/20 22:00 08/03/20 09:46 Sodium Chloride Flush Syringe 10 Ml IV 10 ml BID NELSON Administration Sodium Chloride 10 ml 05/28/20 19:08 06/16/20 17:50 Sodium Chloride Flush Syringe 10 Ml IV 10 ml PRN PRN Administration LINE FLUSH
[2020-08-03] MEDS: EPOETIN ALFA 10,000 UNIT/1 ML INJ IV PRN (14:30)
--- NOTE | 2020-08-03 14:34 | Cat Scan Report ---
CT abdomen pelvis w con INDICATION: Bowel obstruction. TECHNIQUE: All CT scans at this location are performed using the following dose modulation technique: Automated exposure control. Helical slices were obtained through the abdomen and pelvis. 100 cc of Omnipaque 30 0 is administered. COMPARISON: Abdominal radiographs dated 08/02/2020 FINDINGS: Abdomen: There is airspace opacity noted in the lung bases likely representing atelectasis. There is a small right pleural effusion. There is a trace amount of left pleural fluid.1 atherosclerotic calci fications are noted in the coronary arteries. There are some valvular calcifications adjacent to the mitral valve and aortic valves. There is diffuse anasarca. There is a small amount of ascites in the upper abdomen. Tip the nasogastric tube is at the level of the duodenal bulb. The liver, spleen, pancreas, adrenal glands, and kidneys show no acute abnormality . Small bowel is normal in caliber. No bowel obstruction is seen. 2 there is no free air. The colon i s normal in caliber. There is gas and stool noted throughout the colon. Pelvis: There is a small amount of ascites. No obstruction or free air is seen. There is a rectal tub e. On review of bone windows, no acute osseous abnormalities are seen. IMPRESSION: 1. There is no bowel obstruction, inflammation, or free air. 2. There is bibasilar atelectasis in the lungs. There is a small right pleural effusion 3. There is anasarca 4. There is a very small amount of ascites in the upper abdomen. Signer Name: Buddy Llanos MD Signed: 08/03/2020 2:29 PM Workstation Name: [id number]
[2020-08-03] MEDS: NORepinephrine/NS 4 MG-250 ML 4 MG/250 ML BAG IV SCH (19:23)
[2020-08-04] MEDS ORDERED: HEPARIN 5,000 UNIT/1 ML VIAL ONE ×2 (06:11→14:01)
[2020-08-04] MEDS ORDERED: PANTOPRAZOLE 40 MG INJ IV ONE (09:03)
[2020-08-04] MEDS: D5W/0.45% NACL 1,000 ML IV SCH (12:00)
[2020-08-04] MEDS ORDERED: NACL IV ONE (14:01)
[2020-08-04] MEDS ORDERED: D5W/0.45% NACL 1,000 ML IV ONE (14:01)
[2020-08-04] MEDS ORDERED: D5W IV ONE (14:01)
[2020-08-04] MEDS: INSULIN LISPRO 100 UNIT/ML VIAL 3 mL SUB-Q SCH ×3 (17:10→18:40)
[2020-08-04] MEDS: hydrALAZINE 100 MG TAB PO SCH ×3 (17:11→20:43)
[2020-08-04] MEDS: HEPARIN 5,000 UNIT/1 ML VIAL SUB-Q SCH ×2 (17:11→22:02)
[2020-08-04] MEDS: PHENYTOIN IV SCH ×2 (17:11→22:01)
[2020-08-04] MEDS: SODIUM CHLORIDE 0.9% IV SCH ×2 (17:11→22:01)
[2020-08-04] MEDS: MINOXIDIL 2.5 MG TAB PO SCH ×2 (17:12→22:21)
[2020-08-04] MEDS: levETIRAcetam 1,000 MG in DEXTROSE 5% IN WATER 100 ML IV SCH ×2 (17:12→22:01)
[2020-08-04] MEDS: amLODIPine 10 MG TAB PO SCH (17:12)
[2020-08-04] MEDS: GLYCOPYRROLATE 2 MG TAB PO SCH ×2 (17:12→20:43)
[2020-08-04] MEDS: PANTOPRAZOLE 40 MG INJ IV SCH (17:12)
[2020-08-04] MEDS: SENNOSIDES ORAL LIQD 8.8 MG/5 ML ORAL LIQD FEEDTUBE SCH ×2 (17:12→22:21)
--- NOTE | 2020-08-04 21:22 | Progress Note ---
Assessment and Plan --Acute hypoxemic respiratory failure; vent dependent intubated on admission, extubated on 06/12/20 then placed on high flow o2 patient developed another respiratory arrest on 06/26 - reintubated Patient not tolerating weaning parameters CC following, Surgery evaluated the patient for trach and PEG COVID-19 test positive x3, trach and PEG pending -- Hypertension; well controlled Continue amlodipine, clonidine and hydralazine and minoxidil, closely monitor blood pressures PRN labetalol --s/p cardiopulmonary arrest on admission, 06/26 and 07/01, --Bradycardia Patient is on dopamine and epinephrine for bradycardia beta-hugh discontinued Heart rate is in the 60s to 70s --Anoxic brain injury, neurology consulted, neuro requested MRI brain, EEG MRI brain could not be done due to body habitus, --Seizures seizure precautions; continue Keppra, and Dilantin EEG showed epileptiform discharges per review of neurology note --Rectal bleeding; resolved --Acute blood loss anemia; total 3 units PRBC transfused Hemoglobin today was 7.0 Hopefully with hemodialysis hemoglobin should go up If not transfuse 1 unit of PRBC tomorrow monitor H&H, GI following, no plans of endoscopy --Severe sepsis; completed antibiotics per ID persistently positive for COVID-19 and Klebsiella pneumoniae --COVID-19 b/l PNA Completed remdesivir on 06/02 Completed dexamethasone - Last dose 06/07 COVID 19 test positive x 3 during this admission --Superficial left cephalic vein DVT/elevated D-dimers[COVID 19] Patient initially started on heparin drip from 05/29/20 D-dimers improved [phone] treated with Eliquis 5 mg twice a day for 1 week[per ID] stop date 06/26/2020 -- Acute toxic metabolic encephalopathy, POA likely from sepsis and s/p cardiac arrest with possible anoxic injury -- Acute renal failure: Worsening BUN/creatinine 123/3.4 > 105/3.1 avoid nephrotoxins, Nephrology note reviewed Status post right femoral vascular catheter placement started on hemodialysis Discussed with Dr. Koehler --Klebsiella pneumonia: ID evaluated completed second round of 5 days of cefepime on 07/04/2020 --Acute on chronic systolic heart failure Cardiology following. Ef 45% --Transaminitis. Etiology likely from COVID-19. cont to monitor --Hyperkalemia; improved --Hyponatremia Monitor electrolytes, now on HD --Shock; resolved -- DVT prophylaxis Eliquis, SCD to bilateral lower extremities while in bed -- Advance care planning Patient is critically ill with multiple medical problems Poor prognosis, family updated and patient is full code per family request The high probability of a clinically significant, sudden or life threatening deterioration of the [REPORTING CONSULTANT, CVS, renal] system(s) required my full and direct attention, intervention and personal management. The aggregate critical care time was [34] minutes. This time is in addition to time spent performing reported procedures but includes the following: [x] Data Review and interpretation [x] Patient assessment and monitoring of vital signs [x] Documentation [x] Medication orders and management Brief History: 64 YO Female with a medical history of HTN, Diastolic CHF, Pulmonary HTN, DM, Obesity Hypoventilation Syndrome presents to ED for evaluation of shortness of breath. As per staff, the EMS was notified for difficulty breathing. Upon arrival to the patient's home the patient was found to be in distress and was subsequently transported to [facility] for further evaluation and care. In route to [facility] the patient developed cardiac arrest and was treated in accordance with ACLS protocol with return of ROSC. Patient was seen and evaluated in the emergency department and was intubated and placed on ventilatory support. Patient adm itted to ICU. Critical care team consulted in ED. She was found to have COVID- 19 infection and was started on steroids and remdesivir. ID was consulted. Cardiology was consulted for her systolic heart failure and cardiac arrest. Patient completed treatment for COVID-19, then develop superimposed bacterial pneumonia with Klebsiella. She is now extubated, 06/12/2020 but remains confused and requiring high flow O2 and intermittent BiPAP. Patient had another cardiac arrest reintubated 06/26/2020, currently in ICU vent dependent, unable to do trach and PEG due to persistent COVID-19 positive state, as well as anoxic brain injury, unable to get MRI , neurology following. 05/28/2020 COVID-19 test positive 06/29/2020 COVID-19 test positive 07/14/2020 COVID-19 test positive 06/01. Patient remains intubated and on ventilatory support today. Patient has multiple organ system failure and has poor prognosis. Patient did not experience significant medical decompensation overnight but no improvement with current therapy. 06/02. Remains intubated. her BP is elevated. Started on nicardipine drip. Cardiology following. 06/03-06/04. BP is better. Hb stable. Completed remdesivir. ID , Cardiology and Critical care team on board 06/05. Bump in creatinine. I/O reviewed. Nephrology consulted. 06/06. Has slight improvement in renal function. Nephrology on board. On SBT today. Vitals stable. 06/07. Stable renal function. No need for HD as per nephrology. She is making urine. Plan for SBT. 06/08. Off sedation and very lethargic. Her BUN is going up - effect of steroids vs GI bleed. Her hemoglobin remains stable. Will check stool guaiac. Nephrology is following. WBC bumped to 16 today. 06/09: remains intubated, wbc trended up, Cr slightly trending down. cont TF, wean off vent as tolerated. 06/10: Cr trending down, cont to wean off vent as tolerated. 06/10; Cr much improved, cont iv fluid, tolerating tube feeding. stopped vac, iv cefepime for total 10 days. 06/11; creatinine 1.5 today, sodium level has normalized. Continue tube feeding, continue cefepime for 10 days. Continue to wean off as tolerated. 06/12: planned for extubation today 06/13: extubated yesterday, now on Bipap 06/14: patient on Bipap, remains on TF, restraint. cont to follow clinically 06/15: patient on high flow O2,remains on TF, restraint. cont to follow clinically. transfer to [facility] 06/16: Patient remains on high flow O2, intermittently on BiPAP. Tolerating tube feeding. cont to monitor at [facility] 06/17; patient on BiPAP. Remains confused and on tube feeding. Continue to monitor at [facility]. Wean off O2 as tolerated. 06/18; patient feels slightly better on high flow oxygen, minimally communicative, stable to be transferred out of [facility] to telemetry 06/20; remains hypoxic on high flow oxygen, today noncommunicative sleeping all the time, vital signs noted 06/21; more alert and awake confused at times and pulling, restraint for safety, on high flow oxygen We will request physical therapy once more stable 06/22; PT unable to assess due to safety concerns, remains hypoxic on high flow oxygen, BiPAP at night. minimally communicative 06/23: Remains on high flow O2, order for speech eval, continue tube feeding. Creatinine noted to be elevated today -2.4, increase IV fluid hydration. 06/24: Kidney function started worsening 06/23 -likely from hypotension. patient had episodes of hypotension on 06/22. Kidney function is unchanged from yesterday. No further episodes of hypotension. Follow-up electrolytes and renal function. patient remains on high flow O2 06/25: patient on 15L o2 with n/c. on Bipap at night. follow renal function and follow bmp . Placement not possible as patient unfunded. wean off o2 as tolerated. 06/26: hb 6.9 today, transfuse one unit. wean off from O2 as tolerated. check stool for occult blood. consult GI if stool is positive for blood. 06/27; Code blue called yesterday. ACLS initiated, Pt found to have Asystolic Arrest with eventual return of perfusing cardiac rhythm. patient reintubated during code, transferred to ICU, called family and updated 06/28: Patient is spiking fever, started on empiric antibiotic, ordered blood urine and sputum culture. We will reconsult ID. Discussed with patient's son in the evening. Family wants to continue full CODE STATUS. Discussed with critical care attending and RN in length. 06/29: Repeat COVID-19 test is positive. Patient remains on ventilator, continue tube feeding diet. Renal function stable, H&H stable. GI recommendation appreciated -no plan for endoscopy now as there is no active bleeding. 06/30: Renal function improving, patient remains positive for COVID. Tolerating tube feeding, wean off vent as tolerated. Patient remains with poor prognosis but 07/01: Remains intubated, continue to wean off as tolerated, continue antibiotic for Klebsiella pneumoniae. COVID-19 reordered on 06/29 and came as positive. ID following, pulmonary critical care following. Poor prognosis, family wants to continue full code. 07/05; patient has significant drop in H&H, hemoglobin today is 6.9, heme positive stool, type and cross transfuse 2 units of PRBC GI following, no plans of endoscopy 07/06; status post 2 units PRBC transfusion yesterday, Hb improved to 7.7. Monitor H&H transfuse additional PRBC as needed Remains intubated on vent, wean as tolerated and extubate 07/07; Hb dropped to 7.7-6.8, no new episodes of bleeding, transfuse additional 1 unit PRBC today Closely monitor H&H, worsening renal function, hyperkalemia, calcium chloride Kayexalate, gentle hydration, reconsult nephrology 07/08: Patient not tolerating weaning parameters, if unable to wean may need trach and PEG, patient critically ill poor prognosis 07/09; patient remains intubated, trial of CPAP, will closely monitor wean as tolerated and extubate, 07/10: Remains intubated, wean as tolerated and extubate, if unable to wean may need trach and PEG 07/11/2020. Patient currently on mechanical ventilation AC/PRVC with rate of 12, tidal volume 450, FiO2 30% and PEEP of 6 07/12/2020. Patient placed on CPAP with pressure support of 10 and tolerating well. Continue PSB trials as tolerated. 07/13/2020. Patient currently with AC mode rate 12, tidal volume 450, FiO2 30% and PEEP of 6. Surgery has been consulted for trach and PEG placement. Recall nephrology for renal insufficiency. 07/14/20; surgery evaluated for trach and PEG , pending call with test which is is positive today COVID-19 test positive x3 since admission 07/16; trach and PEG pending neuro evaluation 07/17; vent dependent, trach PEG pending neuro evaluation, pending MRI EEG study[already ordered] 07/18; unable to do MRI, due to body habitus, morbid obesity, radiology consult Patient critically ill very poor prognosis 07/19; remains intubated on vent, clinically no change 07/20; unable to wean, needs trach and PEG, need MRI , unable to do due to body habitus 07/21; clinically no change, remains intubated on ventilatory support 07/22; I recommend family meeting, to discuss the goals of treatment, discussed with case management 07/23; patient's blood pressures in the lower range, will hold antihypertensives, fluid bolus, if no improvement Levophed per protocol 07/24: Patient remains critically ill, unable to obtain MRI at this facility and unstable for transfer, Will reconsult Nephrology as creatinine now worse, with worsening Hypotension and Hyperkalemia- Overnight the patient required pressors Secondary to Hypotension, Will place PICC line. Will give kayxalate, continue to hold all BP meds. Hyponatermia improving. 07/24; patient remains to critically ill, nephrology consult appreciated, creatinine is worsening. Hypotension resolved with. Still patient is hypernatremic 07/26; patient is hypertensive and her blood pressure medications were resumed a nd as needed medications also started. Patient is being followed by nephrology for hyponatremia and AVANI. Patient has anemia. We will check labs in the morning. 07/27; patient is still intubated and on mechanical ventilation. Followed by pulmonary critical care. Nephrology is considering to dialyze the patient after discussing with the family. 07/28; patient is intubated and on mechanical ventilation, patient is nonresponsive without pressors. Creatinine is trending up and nephrology is con sidering to dialysis. I called her son Toño at [phone] and discussed about the prognosis of the patient and I gave the option of hospice care/withdraw care and he said he is going to talk to his sister and will get back to me. 07/29/2020;patient is intubated and on mechanical ventilation, patient is nonresponsive without pressors. Creatinine is trending up and nephrology is considering to dialysis. I called her son Tooñ on 07/28 at [phone] and discussed about the prognosis of the patient and I gave the option of hospice care/withdraw care and he said he is going to talk to his sister and will get back to me. Nephrology discussed with the son this morning and the son said he want aggressive management and she is going to be started on dialysis. 07/30; patient's son wants hospice. Declined dialysis. 07/31; plan was to send the patient to hospice but her son does not want to sign AND. Family declined dialysis. Going to talk to the son. 08/01; plans to send the patient to hospice. Patient does not want to sign AND. We called him back but he did not answer. 08/02 intubated, unresponsive, all interdisciplinary notes reviewed, apparently patient's family opted for dialysis, all interdisciplinary notes reviewed 08/03 remains intubated, unresponsive, status post right femoral vein vascular catheter placement, scheduled for hemodialysis today, lab results reviewed. Kavitha ent's NG tube feedings are on hold as the patient apparently developed emesis with questionable fecal odor. Patient is now on NG tube to low intermittent suction. 08/04: TF on hold. CT abdomen/pelvis yesterday showed no obstruction, cont to monitor. follow BMP, HD as needed Subjective Date of service: 08/04/20 Principal diagnosis: Ac hypoxemic resp failure; COVID-19; pneumonia; CHF; Pulm HTN; OHS; DM II Interval history: Patient seen and examined Vitals reviewed, intubated off TF for now, unresponsive Discussed with RN at the bedside Objective - Exam Narrative Exam: General appearance: Present: obese (Morbidly obese), other (intubated) - EENT Eyes: No congestion or icterus - Neck Neck: Present: supple, normal ROM - Respiratory Respiratory effort: normal Respiratory: bilateral: diminished, rhonchi, negative: rales, wheezing - Cardiovascular Rhythm: regular Heart Sounds: Present: S1 & S2 - Extremities Extremities: no ischemia, No edema - Abdominal General gastrointestinal: soft, non-tender, obese, normal bowel sounds - Integumentary Integumentary: Present: clear, warm - Psychiatric Psychiatric: other (intubated) - Neurologic Neurologic: other (intubated), unresponsive - Constitutional Vitals: Vital Signs - 12hr 08/04/20 08/04/20 08/04/20 09:30 09:46 10:00 Temperature Pulse Rate 53 L 55 L 55 L Pulse Rate [ From Monitor] Respiratory 17 14 17 Rate Blood Pressure 132/34 138/37 130/34 O2 Sat by Pulse 98 98 98 Oximetry 08/04/20 08/04/20 08/04/20 10:16 10:30 10:46 Temperature Pulse Rate 54 L 60 56 L Pulse Rate [ From Monitor] Respiratory 15 18 15 Rate Blood Pressure 141/37 134/41 136/41 O2 Sat by Pulse 98 98 98 Oximetry 08/04/20 08/04/20 08/04/20 11:00 11:16 11:30 Temperature Pulse Rate 55 L 57 L 55 L Pulse Rate [ From Monitor] Respiratory 17 16 15 Rate Blood Pressure 137/41 135/42 127/47 O2 Sat by Pulse 98 99 98 Oximetry 08/04/20 08/04/20 08/04/20 11:46 11:50 12:00 Temperature Pulse Rate 56 L 54 L 57 L Pulse Rate [ From Monitor] Respiratory 15 15 Rate Blood Pressure 145/39 145/39 134/51 O2 Sat by Pulse 99 99 98 Oximetry 08/04/20 08/04/20 08/04/20 12:16 12:30 12:46 Temperature Pulse Rate 55 L 57 L 56 L Pulse Rate [ From Monitor] Respiratory 17 16 17 Rate Blood Pressure 127/47 138/47 140/43 O2 Sat by Pulse 99 99 98 Oximetry 08/04/20 08/04/20 08/04/20 13:00 13:16 13:30 Temperature Pulse Rate 59 L 57 L 56 L Pulse Rate [ From Monitor] Respiratory 17 17 15 Rate Blood Pressure 130/46 129/38 138/41 O2 Sat by Pulse 98 99 98 Oximetry 08/04/20 08/04/20 08/04/20 13:46 14:00 14:15 Temperature Pulse Rate 57 L 57 L 58 L Pulse Rate [ From Monitor] Respiratory 17 19 15 Rate Blood Pressure 132/40 132/42 130/47 O2 Sat by Pulse 99 98 98 Oximetry 08/04/20 08/04/20 08/04/20 14:30 14:45 15:00 Temperature Pulse Rate 57 L 57 L 59 L Pulse Rate [ From Monitor] Respiratory 17 16 17 Rate Blood Pressure 137/43 125/56 137/45 O2 Sat by Pulse 98 98 99 Oximetry 08/04/20 08/04/20 08/04/20 15:15 15:30 15:46 Temperature Pulse Rate 57 L 57 L 56 L Pulse Rate [ From Monitor] Respiratory 15 15 15 Rate Blood Pressure 136/49 144/48 131/41 O2 Sat by Pulse 99 99 99 Oximetry 08/04/20 08/04/20 08/04/20 16:00 16:16 16:30 Temperature Pulse Rate 57 L 57 L 55 L Pulse Rate [ From Monitor] Respiratory 16 12 18 Rate Blood Pressure 144/48 144/48 104/31 O2 Sat by Pulse 99 87 99 Oximetry 08/04/20 08/04/20 08/04/20 16:46 17:00 17:16 Temperature Pulse Rate 59 L 58 L 58 L Pulse Rate [ From Monitor] Respiratory 15 18 16 Rate Blood Pressure 129/49 129/49 136/46 O2 Sat by Pulse 99 99 99 Oximetry 08/04/20 08/04/20 08/04/20 17:30 17:45 18:00 Temperature Pulse Rate 58 L 58 L 57 L Pulse Rate [ From Monitor] Respiratory 17 18 16 Rate Blood Pressure 137/43 133/39 123/35 O2 Sat by Pulse 99 99 98 Oximetry 08/04/20 08/04/20 08/04/20 18:16 18:30 18:46 Temperature Pulse Rate 60 59 L 58 L Pulse Rate [ From Monitor] Respiratory 19 17 19 Rate Blood Pressure 125/73 120/54 126/40 O2 Sat by Pulse 98 98 99 Oximetry 08/04/20 08/04/20 08/04/20 19:00 19:15 19:30 Temperature Pulse Rate 60 59 L 60 Pulse Rate [ From Monitor] Respiratory 16 16 15 Rate Blood Pressure 133/42 142/45 139/45 O2 Sat by Pulse 99 99 99 Oximetry 08/04/20 08/04/20 08/04/20 19:45 20:00 20:16 Temperature 98.0 F Pulse Rate 59 L 60 59 L Pulse Rate [ 60 From Monitor] Respiratory 17 15 17 Rate Blood Pressure 145/52 141/46 153/46 O2 Sat by Pulse 98 99 99 Oximetry 08/04/20 20:30 Temperature Pulse Rate 59 L Pulse Rate [ From Monitor] Respiratory 17 Rate Blood Pressure 148/49 O2 Sat by Pulse 99 Oximetry - Labs CBC & Chem 7: 08/07/20 04:40 08/07/20 06:00 Labs: Abnormal lab results 08/03/20 08/03/20 08/04/20 Range/Units 17:51 23:25 05:34 POC Glucose 123 H 122 H 112 H (70-105) mg/dL 08/04/20 Range/Units 12:19 POC Glucose 108 H (70-105) mg/dL HEART Score - HEART Score Troponin: Troponin T 0.067 ng/mL (0.00-0.029) H 07/01/20 06:01
[2020-08-04] MEDS ORDERED: LEVETIRACETAM 500 MG/5 ML IV ONE (22:00)
[2020-08-04] MEDS ORDERED: SODIUM CHLORIDE 0.9% 100 ML IVPB ONE (22:00)
[2020-08-04] MEDS ORDERED: D5W 100 ML IVPB IV ONE (22:00)
[2020-08-04] MEDS ORDERED: PHENYTOIN 100 MG/2 ML VIAL IV ONE (22:00)
[2020-08-04] MEDS: NORepinephrine/NS 4 MG-250 ML 4 MG/250 ML BAG IV SCH (22:01)
[2020-08-04] MEDS: INSULIN GLARGINE 100 UNITS/ML SUB-Q SCH (22:21)
[2020-08-04] MEDS ORDERED: SODIUM CHLORIDE 0.9% 100 ML IV PRN (22:27)
--- NOTE | 2020-08-04 22:32 | Progress Note ---
Assessment and Plan - Patient Problems (1) Acute kidney injury (AVANI) with acute tubular necrosis (ATN) Current Visit: Yes Status: Acute Plan to address problem: Kidney function had been worsening. Patient had poor diuretic response to Lasix IV. She also did not respond to Bumex and infusions with albumin infusion. Cont HD on MWF schedule for volume control/solute clearance (2) Pneumonia due to COVID-19 virus Current Visit: Yes Status: Acute Plan to address problem: Patient has completed course of Remdesevir. Completed course of steroids. (3) Acute hypoxemic respiratory failure Current Visit: Yes Status: Acute Plan to address problem: Being managed by pulmonary. S/p Extubation 06/12. Back on respirator. Continue management by pulmonary/critical care (4) Cardiac arrest Current Visit: Yes Status: Acute Plan to address problem: s/p ACLS with eventual ROSC (5) Cardiomyopathy Current Visit: No Status: Acute Qualifiers: Cardiomyopathy type: unspecified Qualified Code(s): I42.9 - Cardiomyopathy, unspecified Plan to address problem: Patient has peripheral edema. Has not responded to Bumex infusion. cont HD for volume control (6) Type 2 diabetes mellitus with diabetic chronic kidney disease Current Visit: Yes Status: Acute Plan to address problem: Blood sugar management by primary attending (7) Hyponatremia Current Visit: Yes Status: Acute Plan to address problem: likely hypervolemic nature, to correct volume status with HD Subjective Date of service: 08/04/20 Principal diagnosis: Ac hypoxemic resp failure; COVID-19; pneumonia; CHF; Pulm HTN; OHS; DM II Interval history: Pt remains on vent support. on vasopressor support with dopamin. Objective - Exam Narrative Exam: I did not do physical exam at the bedside due to PPE conservation with the current COVID-19 pandemic. - Vital Signs Vital signs: Vital Signs - 12hr 08/04/20 08/04/20 08/04/20 10:30 10:46 11:00 Temperature Pulse Rate 60 56 L 55 L Pulse Rate [ From Monitor] Respiratory 18 15 17 Rate Blood Pressure 134/41 136/41 137/41 O2 Sat by Pulse 98 98 98 Oximetry 08/04/20 08/04/20 08/04/20 11:16 11:30 11:46 Temperature Pulse Rate 57 L 55 L 56 L Pulse Rate [ From Monitor] Respiratory 16 15 15 Rate Blood Pressure 135/42 127/47 145/39 O2 Sat by Pulse 99 98 99 Oximetry 08/04/20 08/04/20 08/04/20 11:50 12:00 12:16 Temperature Pulse Rate 54 L 57 L 55 L Pulse Rate [ From Monitor] Respiratory 15 17 Rate Blood Pressure 145/39 134/51 127/47 O2 Sat by Pulse 99 98 99 Oximetry 08/04/20 08/04/20 08/04/20 12:30 12:46 13:00 Temperature Pulse Rate 57 L 56 L 59 L Pulse Rate [ From Monitor] Respiratory 16 17 17 Rate Blood Pressure 138/47 140/43 130/46 O2 Sat by Pulse 99 98 98 Oximetry 08/04/20 08/04/20 08/04/20 13:16 13:30 13:46 Temperature Pulse Rate 57 L 56 L 57 L Pulse Rate [ From Monitor] Respiratory 17 15 17 Rate Blood Pressure 129/38 138/41 132/40 O2 Sat by Pulse 99 98 99 Oximetry 08/04/20 08/04/20 08/04/20 14:00 14:15 14:30 Temperature Pulse Rate 57 L 58 L 57 L Pulse Rate [ From Monitor] Respiratory 19 15 17 Rate Blood Pressure 132/42 130/47 137/43 O2 Sat by Pulse 98 98 98 Oximetry 08/04/20 08/04/20 08/04/20 14:45 15:00 15:15 Temperature Pulse Rate 57 L 59 L 57 L Pulse Rate [ From Monitor] Respiratory 16 17 15 Rate Blood Pressure 125/56 137/45 136/49 O2 Sat by Pulse 98 99 99 Oximetry 08/04/20 08/04/20 08/04/20 15:30 15:46 16:00 Temperature Pulse Rate 57 L 56 L 57 L Pulse Rate [ From Monitor] Respiratory 15 15 16 Rate Blood Pressure 144/48 131/41 144/48 O2 Sat by Pulse 99 99 99 Oximetry 08/04/20 08/04/20 08/04/20 16:16 16:30 16:46 Temperature Pulse Rate 57 L 55 L 59 L Pulse Rate [ From Monitor] Respiratory 12 18 15 Rate Blood Pressure 144/48 104/31 129/49 O2 Sat by Pulse 87 99 99 Oximetry 08/04/20 08/04/20 08/04/20 17:00 17:16 17:30 Temperature Pulse Rate 58 L 58 L 58 L Pulse Rate [ From Monitor] Respiratory 18 16 17 Rate Blood Pressure 129/49 136/46 137/43 O2 Sat by Pulse 99 99 99 Oximetry 08/04/20 08/04/20 08/04/20 17:45 18:00 18:16 Temperature Pulse Rate 58 L 57 L 60 Pulse Rate [ From Monitor] Respiratory 18 16 19 Rate Blood Pressure 133/39 123/35 125/73 O2 Sat by Pulse 99 98 98 Oximetry 08/04/20 08/04/20 08/04/20 18:30 18:46 19:00 Temperature Pulse Rate 59 L 58 L 60 Pulse Rate [ From Monitor] Respiratory 17 19 16 Rate Blood Pressure 120/54 126/40 133/42 O2 Sat by Pulse 98 99 99 Oximetry 08/04/20 08/04/20 08/04/20 19:15 19:30 19:45 Temperature Pulse Rate 59 L 60 59 L Pulse Rate [ From Monitor] Respiratory 16 15 17 Rate Blood Pressure 142/45 139/45 145/52 O2 Sat by Pulse 99 99 98 Oximetry 08/04/20 08/04/20 08/04/20 20:00 20:16 20:30 Temperature 98.0 F Pulse Rate 60 59 L 59 L Pulse Rate [ 60 From Monitor] Respiratory 15 17 17 Rate Blood Pressure 141/46 153/46 148/49 O2 Sat by Pulse 99 99 99 Oximetry 08/04/20 08/04/20 08/04/20 20:45 21:00 21:15 Temperature Pulse Rate 59 L 60 58 L Pulse Rate [ From Monitor] Respiratory 15 13 14 Rate Blood Pressure 150/49 139/49 150/51 O2 Sat by Pulse 99 98 99 Oximetry 08/04/20 08/04/20 08/04/20 21:30 21:46 22:00 Temperature Pulse Rate 59 L 58 L 59 L Pulse Rate [ From Monitor] Respiratory 11 L 17 19 Rate Blood Pressure 160/50 141/45 132/39 O2 Sat by Pulse 99 99 98 Oximetry 08/04/20 22:15 Temperature Pulse Rate 59 L Pulse Rate [ From Monitor] Respiratory 16 Rate Blood Pressure 146/52 O2 Sat by Pulse 98 Oximetry - Lab 08/03/20 04:38 08/03/20 04:38 Most recent lab results ABG pH 7.344 pH Units (7.350-7.450) L 08/02/20 11:25 ABG pCO2 39.0 mm Hg 08/02/20 11:25 ABG pO2 101.1 mm Hg (80.0-90.0) H 08/02/20 11:25 ABG HCO3 20.8 mmol/L (20.0-26.0) 08/02/20 11:25 ABG O2 Saturation 97.5 % (95.0-99.0) 08/02/20 11:25 Calcium 8.2 mg/dL (8.4-10.2) L 08/03/20 04:38 Magnesium 2.70 mg/dL (1.7-2.3) H 07/28/20 04:30 Urine Creatinine 33.3 mg/dL (0.1-20.0) H 07/06/20 13:20 Urine Sodium 21 mmol/L 07/06/20 13:20 Urine Total Protein 196 mg/dL (5-11.8) H 06/06/20 04:00 Medications & Allergies - Medications Allergies/Adverse Reactions: Allergies No Known Allergies Allergy (Verified 01/21/20 12:28) Home Medications: Home Medications Medication Instructions Recorded Confirmed Last Taken Type AtorvaSTATin [Lipitor] 20 mg PO QHS 05/12/20 05/29/20 Unknown History lisinopriL [Zestril TAB] 40 mg PO QDAY 05/12/20 05/29/20 Unknown History metFORMIN [Glucophage] 850 mg PO BID 05/12/20 05/29/20 Unknown History Acetaminophen [Acetaminophen TAB] 650 mg PO Q4H PRN tablet 05/13/20 05/29/20 Unknown Rx Dicyclomine [Bentyl] 20 mg PO BID #20 tablet 05/13/20 05/29/20 Unknown Rx Famotidine [Pepcid] 20 mg PO BID #30 tablet 05/13/20 05/29/20 Unknown Rx carvediloL [Coreg] 6.25 mg PO BID #60 05/13/20 05/29/20 Unknown Rx Active Medications: Generic Name Dose Route Start Last Admin Trade Name Freq PRN Reason Stop Dose Admin Acetaminophen 650 mg 06/09/20 10:57 06/29/20 21:18 Tylenol FEEDTUBE 650 mg Q6H PRN Administration Fever >101 Amlodipine Besylate 10 mg 06/02/20 11:00 08/04/20 17:12 Amlodipine PO Not Given DAILY NELSON Lipase/Protease/Amylase 1 each 05/29/20 13:39 07/07/20 10:[address] 10,500 Unit FEEDTUBE 1 each PRN PRN Administration For Clogged Feeding Tube Epoetin Javon 10,000 unit 07/29/20 11:29 08/03/20 14:30 Procrit IV 10,000 unit SCOTTY PRN Administration hemodialysis Glycopyrrolate 2 mg 06/09/20 14:00 08/04/20 20:43 Glycopyrrolate PO Not Given TID NELSON Heparin Sodium (Porcine) 5,000 unit 06/30/20 14:00 08/04/20 22:02 Heparin SUB-Q 5,000 unit Q8HR NELSON Administration Heparin Sodium (Porcine) 5,000 unit 07/29/20 11:29 08/02/20 23:15 Heparin IV 5,000 unit SCOTTY PRN Administration hemodialysis Hydralazine HCl 100 mg 07/14/20 14:00 08/04/20 20:43 Apresoline PO Not Given TID [facility] Hydrophilic Ointment 1 applic 05/28/20 13:49 Vaseline Lip Therapy TP Q2HR PRN Dry Lips Norepinephrine 4 mg in 250 mls @ 7.5 mls/hr 07/23/20 20:00 08/04/20 22:01 Levophed Drip 4 Mg/Ns 250 Ml IV 2 mcg/min TITR NELSON 7.5 mls/hr Administration Protocol 2 MCG/MIN Dopamine HCl/Dextrose 800 mg in 250 mls @ 4.613 mls/hr 07/24/20 11:30 08/03/20 21:25 Intropin Drip 800 Mg/D5w 250 Ml IV 0 mcg/kg/min TITR NELSON 0 mls/hr Titration Protocol 2 MCG/KG/MIN Levetiracetam 1,000 mg/ 110 mls @ 400 mls/hr 08/03/20 10:00 08/04/20 22:01 Dextrose IV 400 mls/hr Q12HR NELSON Administration Phenytoin 150 mg/ Sodium 103 mls @ 408 mls/hr 08/03/20 09:00 08/04/20 22:01 Chloride IV 408 mls/hr Q8HR NELSON Administration Sodium Chloride 100 mls @ 999 mls/hr 08/03/20 09:35 Nacl 0.9% IV SCOTTY PRN Hypotension Dextrose/Sodium Chloride 1,000 mls @ 50 mls/hr 08/04/20 18:00 08/04/20 12:00 D5/0.45ns IV 50 mls/hr DIRECT NELSON Administration Insulin Glargine 10 units 06/08/20 22:00 08/04/20 22:21 Lantus SUB-Q Not Given QHS [facility] Insulin Human Lispro 0 unit 05/29/20 18:00 08/04/20 18:40 Humalog SUB-Q Not Given Q6H [facility] Protocol Labetalol HCl 20 mg 06/03/20 09:00 07/31/20 12:14 Labetalol IV 20 mg Q4H PRN Administration HYPERTENSION Minoxidil 5 mg 07/21/20 10:00 08/04/20 22:21 Loniten PO Not Given BID [facility] Multi-Ingred Cream/Lotion/Oil/Oint 1 applic 05/28/20 13:49 Artificial Tears Ophth Oint OU Q4HR PRN Dry Eye(s) Ondansetron HCl 4 mg 06/02/20 09:00 06/09/20 16:48 Zofran IV 4 mg Q8H PRN Administration Nausea And Vomiting Pantoprazole Sodium 40 mg 08/03/20 10:00 08/04/20 17:12 Protonix IV Not Given QDAY [facility] Senna 17.6 mg 06/03/20 10:00 08/04/20 22:21 Senokot FEEDTUBE Not Given BID [facility] Simple Syrup 15 ml 05/29/20 13:39 Simple Syrup FEEDTUBE PRN PRN Hypoglycemia Simple Syrup 30 ml 05/29/20 13:39 Simple Syrup FEEDTUBE PRN PRN Hypoglycemia Sodium Bicarbonate 325 mg 05/29/20 13:39 07/07/20 10:36 Sodium Bicarbonate FEEDTUBE 325 mg PRN PRN Administration For Clogged Feeding Tube Sodium Chloride 10 ml 05/28/20 22:00 08/04/20 22:02 Sodium Chloride Flush Syringe 10 Ml IV 10 ml BID NELSON Administration Sodium Chloride 10 ml 05/28/20 19:08 06/16/20 17:50 Sodium Chloride Flush Syringe 10 Ml IV 10 ml PRN PRN Administration LINE FLUSH
[2020-08-05] MEDS: INSULIN LISPRO 100 UNIT/ML VIAL 3 mL SUB-Q SCH ×4 (01:32→18:37)
[2020-08-05 02:50] LABS: Basophils # (Auto) 0.1 K/mm3 (0.0-0.1); Basophils % (Auto) 0.8 % (0.0-1.8); Eosinophils # (Auto) 0.2 K/mm3 (0.0-0.4); Eosinophils % (Auto) 2.5 % (0.0-4.3); Hemoglobin 6.5 gm/dl (10.1-14.3); Lymphocytes # (Auto) 0.8 K/mm3 (1.2-5.4); Lymphocytes % (Auto) 9.2 % (13.4-35.0); Mean Corpuscular HGB Conc 34 % (30-34); Mean Corpuscular Volume 89 fl (79-97); Monocytes # (Auto) 0.8 K/mm3 (0.0-0.8); Monocytes % (Auto) 9.8 % (0.0-7.3); Platelet Count 410 K/mm3 (140-440); Red Cell Distribution Width 18.5 % (13.2-15.2)
[2020-08-05 03:04] LABS: Hematocrit 19.5 % (30.3-42.9)
--- NOTE | 2020-08-05 04:09 | XRay Report ---
CHEST 1 VIEW 3:14 AM INDICATION / CLINICAL INFORMATION: Pneumonia. COMPARISON: 07/25/20. FINDINGS: SUPPORT DEVICES: The tip of the endotracheal tube is approximately 3.8 cm above the christopher. The posit ion of the nasogastric tube has not changed. HEART / MEDIASTINUM: Unchanged. LUNGS / PLEURA: Low lung volumes. Bilateral hilar enlargement, greater on the left, has not changed. There is a possible new area of nodularity in the left lower lung. Diffuse interstitial disease is st able. No large pleural effusion. No pneumothorax. ADDITIONAL FINDINGS: No significant additional findings. IMPRESSION: 1. Possible new nodular density in the left lower lung. 2. Bilateral hilar prominence, greater on the left. Signer Name: Zane Suero MD Signed: 08/05/2020 4:04 AM Workstation Name: [id number]
--- NOTE | 2020-08-05 04:10 | XRay Report ---
ABDOMEN 1 VIEW 3:10 AM INDICATION / CLINICAL INFORMATION: Bowel obstruction.. COMPARISON: 08/02/20. FINDINGS: TUBES / LINES: The position of the nasogastric tube has not changed. BOWEL GAS PATTERN: No evidence of bowel obstruction or mass effect. FREE AIR / EXTRALUMINAL GAS: None seen. ADDITIONAL FINDINGS: No significant additional findings. IMPRESSION: I see no evidence of bowel obstruction. Signer Name: Zane Suero MD Signed: 08/05/2020 4:06 AM Workstation Name: [id number]
--- NOTE | 2020-08-05 05:05 | Progress Note ---
Assessment and Plan Cardiopulmonary arrest 06/26/2020 with ROSC Acute hypoxemic respiratory failure , extubated now re-intubated Anemia s/p PRBC Severe COVID infection Multifocal pneumonia Morbid obesity Acute toxic metabolic encephalopathy AVANI secondary to COVID/vasomotor nephropathy Bilateral pulmonary edema. Bilateral pleural effusions. History of congestive heart failure. History of pulmonary hypertension. History of hypertension. Diabetes. Obesity hypoventilation syndrome. Oropharyngeal dysphagia Non convulsive status -Transfuse 1 unit PRBC for HgB <7g/dL -Continue AEDs per Neurology -CXR, ABG as clinically indicated -Continue to trend temperature curve and WCC -Continue daily SBTs as tolerated, her mental status precludes liberation from MVS -Continue to avoid nephrotoxins, closely monitor renal function, dose all medications for renal function -COVID positive, trach /PEG on hold -Supportive PHOTO TECHNOLOGIST per Renal service, has a right femoral trialysis catheter - VAP bundle addressed -Aspiration precautions, HOB >40 -lung protective strategies-ARDS. net - continue bronchodilators with pulmonary hygiene per RT - wean per pulmonary driven protocols otherwise - continue to avoid benzodiazepines, reduce the possibility of delirium - prn analgesia per CPOT score - Continue to wean supplemental oxygen for target O2 sats > 92% -Continue to hold sedation, if needed intermittent dosing - conservative fluid management measures as tolerated by hemodynamics and renal function - Bronchodilators with pulmonary hygiene per RT - Accuchecks with glycemic control per SSI (While critically ill target blood glucose of 140-180 mg/dL; avoid hypoglycemia) - Maintenance of sleep-wake cycle, avoid delirium - Aspiration precautions, HOB >40 - Stress ulcer prophylaxis -Famotidine - Mobility protocol, off loading and skin assessment for pressure ulcer prevention COVID SPECIFIC INTERVENTIONS -Airborne, contact isolation for COVID per facility protocols - s/p Remdesivir -IV steroids-Dexamethasone -Trend d-dimer,and other inflammatory markers per facility protocol -Convalescent plasma therapy per facility protocol -Continue all supportive care Discussed with the ICU team-RT,RN, Clincal pharmacist and case management Life threatening condition- Cardiopulmonary arrest with ROSC, Sepsis ;COVID 19 acute hypoxemic respiratory failure on MVS Mortality/Morbidity- High Complexity of medical decision making- High CONDITION: CRITICAL PROGNOSIS: GUARDED-POOR CODE STATUS: FULL CODE The high probability of a clinically significant, sudden or life-threatening deterioration of the [respiratory & neurology, renal ] system(s) required my full and direct attention, intervention and personal management. The aggregate critical care time was [32] minutes without overlap. Time includes spent on; [x] Data Review and interpretation [x] Patient assessment and monitoring of vital signs [x] Documentation [x] Medication orders and management Subjective Date of service: 08/05/20 Principal diagnosis: Ac hypoxemic resp failure; COVID-19; pneumonia; CHF; Pulm HTN; OHS; DM II Interval history: Patient is seen today for: Ac hypoxemic resp failure s/p Cardiopulmonary arrest with ROSC; Coronavirus-19 infection; pneumonia; Pulmonary edema; Bilateral pleural effusions; CHF; Morbid obesity; pulmonary hypertension; OHS; DM II Seen and examined at bedside; 24hour events reviewed; nursing and respiratory care staff consulted; Vitals, labs,medications, chart reviewed. Remains on MVS, no fevers, Mental status changes persist, but grimaces to pain Tolerating tube feedings, On HD now Objective Vital Signs - 12hr 08/04/20 08/04/20 08/04/20 17:16 17:30 17:45 Temperature Pulse Rate 58 L 58 L 58 L Pulse Rate [ From Monitor] Respiratory 16 17 18 Rate Blood Pressure 136/46 137/43 133/39 O2 Sat by Pulse 99 99 99 Oximetry 08/04/20 08/04/20 08/04/20 18:00 18:16 18:30 Temperature Pulse Rate 57 L 60 59 L Pulse Rate [ From Monitor] Respiratory 16 19 17 Rate Blood Pressure 123/35 125/73 120/54 O2 Sat by Pulse 98 98 98 Oximetry 08/04/20 08/04/20 08/04/20 18:46 19:00 19:15 Temperature Pulse Rate 58 L 60 59 L Pulse Rate [ From Monitor] Respiratory 19 16 16 Rate Blood Pressure 126/40 133/42 142/45 O2 Sat by Pulse 99 99 99 Oximetry 08/04/20 08/04/20 08/04/20 19:30 19:45 20:00 Temperature 98.0 F Pulse Rate 60 59 L 60 Pulse Rate [ 60 From Monitor] Respiratory 15 17 15 Rate Blood Pressure 139/45 145/52 141/46 O2 Sat by Pulse 99 98 99 Oximetry 08/04/20 08/04/20 08/04/20 20:16 20:30 20:45 Temperature Pulse Rate 59 L 59 L 59 L Pulse Rate [ From Monitor] Respiratory 17 17 15 Rate Blood Pressure 153/46 148/49 150/49 O2 Sat by Pulse 99 99 99 Oximetry 08/04/20 08/04/20 08/04/20 21:00 21:15 21:30 Temperature Pulse Rate 60 58 L 59 L Pulse Rate [ From Monitor] Respiratory 13 14 11 L Rate Blood Pressure 139/49 150/51 160/50 O2 Sat by Pulse 98 99 99 Oximetry 08/04/20 08/04/20 08/04/20 21:46 22:00 22:15 Temperature Pulse Rate 58 L 59 L 59 L Pulse Rate [ From Monitor] Respiratory 17 19 16 Rate Blood Pressure 141/45 132/39 146/52 O2 Sat by Pulse 99 98 98 Oximetry 08/04/20 08/04/20 08/04/20 22:18 22:30 22:46 Temperature Pulse Rate 58 L 60 58 L Pulse Rate [ From Monitor] Respiratory 14 16 14 Rate Blood Pressure 146/52 137/45 142/44 O2 Sat by Pulse 98 98 99 Oximetry 08/04/20 08/04/20 08/04/20 23:00 23:16 23:30 Temperature Pulse Rate 61 61 60 Pulse Rate [ From Monitor] Respiratory 10 L 14 11 L Rate Blood Pressure 149/56 159/41 161/50 O2 Sat by Pulse 99 99 98 Oximetry 08/04/20 08/05/20 08/05/20 23:46 00:00 00:08 Temperature 97.9 F Pulse Rate 60 61 62 Pulse Rate [ 58 L From Monitor] Respiratory 19 17 Rate Blood Pressure 168/48 148/43 148/43 O2 Sat by Pulse 99 97 98 Oximetry 08/05/20 08/05/20 08/05/20 00:16 00:30 00:46 Temperature Pulse Rate 60 59 L 59 L Pulse Rate [ From Monitor] Respiratory 15 13 14 Rate Blood Pressure 149/43 154/43 151/42 O2 Sat by Pulse 99 98 99 Oximetry 08/05/20 08/05/20 08/05/20 01:00 01:15 01:30 Temperature Pulse Rate 61 61 61 Pulse Rate [ From Monitor] Respiratory 15 14 15 Rate Blood Pressure 154/41 146/52 156/46 O2 Sat by Pulse 99 98 99 Oximetry 08/05/20 08/05/20 08/05/20 01:45 02:00 02:15 Temperature Pulse Rate 61 58 L 61 Pulse Rate [ From Monitor] Respiratory 14 16 19 Rate Blood Pressure 153/61 151/53 147/57 O2 Sat by Pulse 97 97 98 Oximetry 08/05/20 08/05/20 08/05/20 02:30 02:45 03:00 Temperature Pulse Rate 62 61 61 Pulse Rate [ From Monitor] Respiratory 19 13 16 Rate Blood Pressure 142/52 144/51 150/54 O2 Sat by Pulse 99 99 99 Oximetry 08/05/20 08/05/20 08/05/20 03:15 03:30 03:45 Temperature Pulse Rate 78 75 77 Pulse Rate [ From Monitor] Respiratory 15 17 17 Rate Blood Pressure 163/74 161/49 163/58 O2 Sat by Pulse 97 98 97 Oximetry 08/05/20 08/05/20 08/05/20 04:00 04:15 04:33 Temperature Pulse Rate 77 76 77 Pulse Rate [ 77 From Monitor] Respiratory 18 14 Rate Blood Pressure 152/67 161/52 155/43 O2 Sat by Pulse 96 97 97 Oximetry Constitutional: appears uncomfortable, other (elderly looking female with mildly increased resp effort at rest) Eyes: non-icteric ENT: oropharynx dry, other (ETT 23-24 cm AYAN) Neck: supple, no lymphadenopathy, no JVD Effort: mildly labored Ascultation: Bilateral: clear, diminished breath sounds, rales, rhonchi Percussion: Bilateral: not dull Cardiovascular: regular rate and rhythm, other (S1,S2) Gastrointestinal: normoactive bowel sounds, soft, non-tender, non-distended Integumentary: rash, other (Right femoral trialysis catheter) Extremities: no cyanosis, pink and warm, pulses normal, no ischemia or petechiae, edema (pedal and peripheral ), anasarca Neurologic: unable to assess, other (lethargic to obtunded) Psychiatric: other (unable to assess re: AMS) CBC and BMP: 08/06/20 04:30 08/05/20 05:35 ABG, PT/INR, D-dimer: ABG ABG pH 7.344 pH Units (7.350-7.450) L 08/02/20 11:25 POC ABG pCO2 44.1 mmHg (32.0-48.0) 07/18/20 04:24 ABG pCO2 39.0 mm Hg 08/02/20 11:25 POC ABG pO2 86.8 mmHg (83-108) 07/18/20 04:24 ABG pO2 101.1 mm Hg (80.0-90.0) H 08/02/20 11:25 POC ABG HCO3 25.6 07/18/20 04:24 ABG O2 Saturation 97.5 % (95.0-99.0) 08/02/20 11:25 PT/INR, D-dimer PT 14.2 Sec. (12.2-14.9) 05/29/20 15:10 INR 1.08 (0.87-1.13) 05/29/20 15:10 D-Dimer 2310.15 ng/mlDDU (0-234) H 06/29/20 14:45 Abnormal lab findings: Abnormal Labs 05/28/20 05/28/20 05/28/20 13:29 13:47 13:47 WBC RBC Hgb Hct MCHC RDW 15.3 H Lymph % (Auto) [place] % (Auto) Eos % (Auto) Lymph # [place] # Lymph # (Auto) [place] # (Auto) Eos # (Auto) Seg Neutrophils % Seg Neuts % (Manual) Lymphocytes % (Manual) Seg Neutrophils # Seg Neutrophils # Man Lymphocytes # (Manual) Monocytes % (Manual) Eosinophils % (Manual) Monocytes # (Manual) Eosinophils # (Manual) D-Dimer Heparin Anti-Xa Level ABG pH POC ABG pCO2 POC ABG pO2 ABG pO2 ABG HCO3 ABG O2 Saturation ABG Base Excess ABG Hemoglobin ABG Oxyhemoglobin VBG pH ABG Sodium ABG Potassium ABG Glucose Oxyhemoglobin Sodium Potassium 6.6 H* Chloride 109.2 H Carbon Dioxide 17 L BUN 29 H Creatinine 1.3 H Glucose 265 H POC Glucose 248 H Lactic Acid Calcium 8.1 L Ferritin AST 63 H Alkaline Phosphatase Magnesium Lactate Dehydrogenase Total Creatine Kinase 301 H CK-MB (CK-2) 4.3 H C-Reactive Protein Total Protein 5.4 L Albumin 2.6 L Troponin T HDL Cholesterol Arterial Blood Glucose Urine WBC (Auto) Urine Creatinine Urine Total Protein Phenytoin Coronavirus (PCR) Crossmatch 05/28/20 05/28/20 05/28/20 13:47 13:47 14:46 WBC RBC Hgb Hct MCHC RDW Lymph % (Auto) [place] % (Auto) Eos % (Auto) Lymph # [place] # Lymph # (Auto) [place] # (Auto) Eos # (Auto) Seg Neutrophils % Seg Neuts % (Manual) Lymphocytes % (Manual) Seg Neutrophils # Seg Neutrophils # Man Lymphocytes # (Manual) Monocytes % (Manual) Eosinophils % (Manual) Monocytes # (Manual) Eosinophils # (Manual) D-Dimer Heparin Anti-Xa Level ABG pH POC ABG pCO2 POC ABG pO2 ABG pO2 ABG HCO3 ABG O2 Saturation ABG Base Excess ABG Hemoglobin ABG Oxyhemoglobin VBG pH 7.152 L* ABG Sodium ABG Potassium ABG Glucose Oxyhemoglobin Sodium Potassium 7.2 H* Chloride Carbon Dioxide BUN Creatinine Glucose POC Glucose Lactic Acid 3.40 H* Calcium Ferritin AST Alkaline Phosphatase Magnesium Lactate Dehydrogenase Total Creatine Kinase CK-MB (CK-2) C-Reactive Protein Total Protein Albumin Troponin T HDL Cholesterol Arterial Blood Glucose Urine WBC (Auto) Urine Creatinine Urine Total Protein Phenytoin Coronavirus (PCR) Crossmatch 05/28/20 05/28/20 05/28/20 15:33 15:33 15:51 WBC RBC Hgb Hct MCHC RDW Lymph % (Auto) [place] % (Auto) Eos % (Auto) Lymph # [place] # Lymph # (Auto) [place] # (Auto) Eos # (Auto) Seg Neutrophils % Seg Neuts % (Manual) Lymphocytes % (Manual) Seg Neutrophils # Seg Neutrophils # Man Lymphocytes # (Manual) Monocytes % (Manual) Eosinophils % (Manual) Monocytes # (Manual) Eosinophils # (Manual) D-Dimer 8780.43 H Heparin Anti-Xa Level ABG pH 7.284 L POC ABG pCO2 POC ABG pO2 ABG pO2 273.0 H ABG HCO3 ABG O2 Saturation 99.4 H ABG Base Excess -6.1 L ABG Hemoglobin 17.2 H ABG Oxyhemoglobin VBG pH ABG Sodium ABG Potassium ABG Glucose Oxyhemoglobin Sodium Potassium Chloride Carbon Dioxide BUN Creatinine Glucose 152 H POC Glucose Lactic Acid Calcium Ferritin AST Alkaline Phosphatase Magnesium Lactate Dehydrogenase 365 H Total Creatine Kinase CK-MB (CK-2) C-Reactive Protein Total Protein Albumin Troponin T HDL Cholesterol Arterial Blood Glucose Urine WBC (Auto) Urine Creatinine Urine Total Protein Phenytoin Coronavirus (PCR) Crossmatch 05/28/20 05/28/20 05/28/20 16:30 20:41 23:20 WBC RBC Hgb Hct MCHC RDW Lymph % (Auto) [place] % (Auto) Eos % (Auto) Lymph # [place] # Lymph # (Auto) [place] # (Auto) Eos # (Auto) Seg Neutrophils % Seg Neuts % (Manual) Lymphocytes % (Manual) Seg Neutrophils # Seg Neutrophils # Man Lymphocytes # (Manual) Monocytes % (Manual) Eosinophils % (Manual) Monocytes # (Manual) Eosinophils # (Manual) D-Dimer Heparin Anti-Xa Level ABG pH POC ABG pCO2 POC ABG pO2 ABG pO2 ABG HCO3 ABG O2 Saturation ABG Base Excess ABG Hemoglobin ABG Oxyhemoglobin VBG pH ABG Sodium ABG Potassium ABG Glucose Oxyhemoglobin Sodium Potassium Chloride Carbon Dioxide BUN Creatinine Glucose POC Glucose 225 H 224 H Lactic Acid Calcium Ferritin AST Alkaline Phosphatase Magnesium Lactate Dehydrogenase Total Creatine Kinase CK-MB (CK-2) C-Reactive Protein Total Protein Albumin Troponin T HDL Cholesterol Arterial Blood Glucose Urine WBC (Auto) 17.0 H Urine Creatinine Urine Total Protein Phenytoin Coronavirus (PCR) Crossmatch 05/28/20 05/29/20 05/29/20 Unknown 04:35 04:43 WBC RBC 3.48 L Hgb 9.8 L Hct 29.4 L MCHC RDW 16.0 H Lymph % (Auto) 7.4 L [place] % (Auto) Eos % (Auto) Lymph # 0.7 L [place] # Lymph # (Auto) [place] # (Auto) Eos # (Auto) Seg Neutrophils % 89.1 H Seg Neuts % (Manual) Lymphocytes % (Manual) Seg Neutrophils # 8.1 H Seg Neutrophils # Man Lymphocytes # (Manual) Monocytes % (Manual) Eosinophils % (Manual) Monocytes # (Manual) Eosinophils # (Manual) D-Dimer Heparin Anti-Xa Level ABG pH POC ABG pCO2 POC ABG pO2 ABG pO2 ABG HCO3 19.3 L ABG O2 Saturation ABG Base Excess -4.5 L ABG Hemoglobin 9.7 L ABG Oxyhemoglobin VBG pH ABG Sodium ABG Potassium ABG Glucose Oxyhemoglobin Sodium Potassium Chloride Carbon Dioxide BUN Creatinine Glucose POC Glucose Lactic Acid Calcium Ferritin AST Alkaline Phosphatase Magnesium Lactate Dehydrogenase Total Creatine Kinase CK-MB (CK-2) C-Reactive Protein Total Protein Albumin Troponin T HDL Cholesterol Arterial Blood Glucose Urine WBC (Auto) Urine Creatinine Urine Total Protein Phenytoin Coronavirus (PCR) Positive A Crossmatch 05/29/20 05/29/20 05/29/20 04:43 15:10 17:17 WBC RBC Hgb 9.3 L Hct 28.7 L MCHC RDW Lymph % (Auto) [place] % (Auto) Eos % (Auto) Lymph # [place] # Lymph # (Auto) [place] # (Auto) Eos # (Auto) Seg Neutrophils % Seg Neuts % (Manual) Lymphocytes % (Manual) Seg Neutrophils # Seg Neutrophils # Man Lymphocytes # (Manual) Monocytes % (Manual) Eosinophils % (Manual) Monocytes # (Manual) Eosinophils # (Manual) D-Dimer Heparin Anti-Xa Level ABG pH POC ABG pCO2 POC ABG pO2 ABG pO2 ABG HCO3 ABG O2 Saturation ABG Base Excess ABG Hemoglobin ABG Oxyhemoglobin VBG pH ABG Sodium ABG Potassium ABG Glucose Oxyhemoglobin Sodium Potassium Chloride 110.2 H Carbon Dioxide 18 L BUN 32 H Creatinine 1.4 H Glucose 180 H POC Glucose 147 H Lactic Acid Calcium Ferritin AST Alkaline Phosphatase Magnesium Lactate Dehydrogenase Total Creatine Kinase CK-MB (CK-2) C-Reactive Protein Total Protein Albumin Troponin T HDL Cholesterol Arterial Blood Glucose Urine WBC (Auto) Urine Creatinine Urine Total Protein Phenytoin Coronavirus (PCR) Crossmatch 05/30/20 05/30/20 05/30/20 00:08 00:12 04:15 WBC RBC Hgb Hct MCHC RDW Lymph % (Auto) [place] % (Auto) Eos % (Auto) Lymph # [place] # Lymph # (Auto) [place] # (Auto) Eos # (Auto) Seg Neutrophils % Seg Neuts % (Manual) Lymphocytes % (Manual) Seg Neutrophils # Seg Neutrophils # Man Lymphocytes # (Manual) Monocytes % (Manual) Eosinophils % (Manual) Monocytes # (Manual) Eosinophils # (Manual) D-Dimer Heparin Anti-Xa Level 0.71 H ABG pH 7.460 H POC ABG pCO2 POC ABG pO2 ABG pO2 106.0 H ABG HCO3 18.9 L ABG O2 Saturation ABG Base Excess -4.4 L ABG Hemoglobin 6.8 L ABG Oxyhemoglobin VBG pH ABG Sodium ABG Potassium ABG Glucose Oxyhemoglobin Sodium Potassium Chloride Carbon Dioxide BUN Creatinine Glucose POC Glucose 195 H Lactic Acid Calcium Ferritin AST Alkaline Phosphatase Magnesium Lactate Dehydrogenase Total Creatine Kinase CK-MB (CK-2) C-Reactive Protein Total Protein Albumin Troponin T HDL Cholesterol Arterial Blood Glucose Urine WBC (Auto) Urine Creatinine Urine Total Protein Phenytoin Coronavirus (PCR) Crossmatch 05/30/20 05/30/20 05/30/20 06:07 08:37 12:33 WBC RBC Hgb Hct MCHC RDW Lymph % (Auto) [place] % (Auto) Eos % (Auto) Lymph # [place] # Lymph # (Auto) [place] # (Auto) Eos # (Auto) Seg Neutrophils % Seg Neuts % (Manual) Lymphocytes % (Manual) Seg Neutrophils # Seg Neutrophils # Man Lymphocytes # (Manual) Monocytes % (Manual) Eosinophils % (Manual) Monocytes # (Manual) Eosinophils # (Manual) D-Dimer Heparin Anti-Xa Level 0.85 H ABG pH POC ABG pCO2 POC ABG pO2 ABG pO2 ABG HCO3 ABG O2 Saturation ABG Base Excess ABG Hemoglobin ABG Oxyhemoglobin VBG pH ABG Sodium ABG Potassium ABG Glucose Oxyhemoglobin Sodium Potassium Chloride Carbon Dioxide BUN Creatinine Glucose POC Glucose 182 H 187 H Lactic Acid Calcium Ferritin AST Alkaline Phosphatase Magnesium Lactate Dehydrogenase Total Creatine Kinase CK-MB (CK-2) C-Reactive Protein Total Protein Albumin Troponin T HDL Cholesterol Arterial Blood Glucose Urine WBC (Auto) Urine Creatinine Urine Total Protein Phenytoin Coronavirus (PCR) Crossmatch 05/30/20 05/30/20 05/30/20 15:58 17:57 23:36 WBC RBC Hgb Hct MCHC RDW Lymph % (Auto) [place] % (Auto) Eos % (Auto) Lymph # [place] # Lymph # (Auto) [place] # (Auto) Eos # (Auto) Seg Neutrophils % Seg Neuts % (Manual) Lymphocytes % (Manual) Seg Neutrophils # Seg Neutrophils # Man Lymphocytes # (Manual) Monocytes % (Manual) Eosinophils % (Manual) Monocytes # (Manual) Eosinophils # (Manual) D-Dimer Heparin Anti-Xa Level 1.03 H ABG pH POC ABG pCO2 POC ABG pO2 ABG pO2 ABG HCO3 ABG O2 Saturation ABG Base Excess ABG Hemoglobin ABG Oxyhemoglobin VBG pH ABG Sodium ABG Potassium ABG Glucose Oxyhemoglobin Sodium Potassium Chloride Carbon Dioxide BUN Creatinine Glucose POC Glucose 208 H 185 H Lactic Acid Calcium Ferritin AST Alkaline Phosphatase Magnesium Lactate Dehydrogenase Total Creatine Kinase CK-MB (CK-2) C-Reactive Protein Total Protein Albumin Troponin T HDL Cholesterol Arterial Blood Glucose Urine WBC (Auto) Urine Creatinine Urine Total Protein Phenytoin Coronavirus (PCR) Crossmatch 0805/31/20 05/31/20 02:16 03:55 06:16 WBC RBC Hgb 9.2 L Hct 27.5 L MCHC RDW Lymph % (Auto) [place] % (Auto) Eos % (Auto) Lymph # [place] # Lymph # (Auto) [place] # (Auto) Eos # (Auto) Seg Neutrophils % Seg Neuts % (Manual) Lymphocytes % (Manual) Seg Neutrophils # Seg Neutrophils # Man Lymphocytes # (Manual) Monocytes % (Manual) Eosinophils % (Manual) Monocytes # (Manual) Eosinophils # (Manual) D-Dimer Heparin Anti-Xa Level ABG pH POC ABG pCO2 POC ABG pO2 ABG pO2 94.7 H ABG HCO3 18.6 L ABG O2 Saturation ABG Base Excess -5.5 L ABG Hemoglobin 7.9 L ABG Oxyhemoglobin VBG pH ABG Sodium ABG Potassium ABG Glucose Oxyhemoglobin Sodium Potassium Chloride Carbon Dioxide BUN Creatinine Glucose POC Glucose 160 H Lactic Acid Calcium Ferritin AST Alkaline Phosphatase Magnesium Lactate Dehydrogenase Total Creatine Kinase CK-MB (CK-2) C-Reactive Protein Total Protein Albumin Troponin T HDL Cholesterol Arterial Blood Glucose Urine WBC (Auto) Urine Creatinine Urine Total Protein Phenytoin Coronavirus (PCR) Crossmatch 05/31/20 05/31/20 05/31/20 12:20 13:03 18:13 WBC RBC Hgb Hct MCHC RDW Lymph % (Auto) [place] % (Auto) Eos % (Auto) Lymph # [place] # Lymph # (Auto) [place] # (Auto) Eos # (Auto) Seg Neutrophils % Seg Neuts % (Manual) Lymphocytes % (Manual) Seg Neutrophils # Seg Neutrophils # Man Lymphocytes # (Manual) Monocytes % (Manual) Eosinophils % (Manual) Monocytes # (Manual) Eosinophils # (Manual) D-Dimer Heparin Anti-Xa Level ABG pH POC ABG pCO2 POC ABG pO2 ABG pO2 ABG HCO3 ABG O2 Saturation ABG Base Excess ABG Hemoglobin ABG Oxyhemoglobin VBG pH ABG Sodium ABG Potassium ABG Glucose Oxyhemoglobin Sodium Potassium Chloride Carbon Dioxide 18 L BUN 48 H Creatinine 1.6 H Glucose 115 H POC Glucose 128 H 159 H Lactic Acid Calcium 8.3 L Ferritin AST Alkaline Phosphatase Magnesium Lactate Dehydrogenase Total Creatine Kinase CK-MB (CK-2) C-Reactive Protein Total Protein 5.4 L Albumin 2.4 L Troponin T HDL Cholesterol Arterial Blood Glucose Urine WBC (Auto) Urine Creatinine Urine Total Protein Phenytoin Coronavirus (PCR) Crossmatch 05/31/20 06/01/20 06/01/20 23:51 04:00 05:48 WBC RBC Hgb Hct MCHC RDW Lymph % (Auto) [place] % (Auto) Eos % (Auto) Lymph # [place] # Lymph # (Auto) [place] # (Auto) Eos # (Auto) Seg Neutrophils % Seg Neuts % (Manual) Lymphocytes % (Manual) Seg Neutrophils # Seg Neutrophils # Man Lymphocytes # (Manual) Monocytes % (Manual) Eosinophils % (Manual) Monocytes # (Manual) Eosinophils # (Manual) D-Dimer Heparin Anti-Xa Level ABG pH POC ABG pCO2 POC ABG pO2 ABG pO2 109.8 H ABG HCO3 18.8 L ABG O2 Saturation ABG Base Excess -5.9 L ABG Hemoglobin 7.8 L ABG Oxyhemoglobin VBG pH ABG Sodium ABG Potassium ABG Glucose Oxyhemoglobin Sodium Potassium Chloride Carbon Dioxide BUN Creatinine Glucose POC Glucose 171 H 133 H Lactic Acid Calcium Ferritin AST Alkaline Phosphatase Magnesium Lactate Dehydrogenase Total Creatine Kinase CK-MB (CK-2) C-Reactive Protein Total Protein Albumin Troponin T HDL Cholesterol Arterial Blood Glucose Urine WBC (Auto) Urine Creatinine Urine Total Protein Phenytoin Coronavirus (PCR) Crossmatch 06/01/20 06/01/20 06/02/20 12:28 17:29 00:08 WBC RBC Hgb Hct MCHC RDW Lymph % (Auto) [place] % (Auto) Eos % (Auto) Lymph # [place] # Lymph # (Auto) [place] # (Auto) Eos # (Auto) Seg Neutrophils % Seg Neuts % (Manual) Lymphocytes % (Manual) Seg Neutrophils # Seg Neutrophils # Man Lymphocytes # (Manual) Monocytes % (Manual) Eosinophils % (Manual) Monocytes # (Manual) Eosinophils # (Manual) D-Dimer Heparin Anti-Xa Level ABG pH POC ABG pCO2 POC ABG pO2 ABG pO2 ABG HCO3 ABG O2 Saturation ABG Base Excess ABG Hemoglobin ABG Oxyhemoglobin VBG pH ABG Sodium ABG Potassium ABG Glucose Oxyhemoglobin Sodium Potassium Chloride Carbon Dioxide BUN Creatinine Glucose POC Glucose 199 H 209 H 162 H Lactic Acid Calcium Ferritin AST Alkaline Phosphatase Magnesium Lactate Dehydrogenase Total Creatine Kinase CK-MB (CK-2) C-Reactive Protein Total Protein Albumin Troponin T HDL Cholesterol Arterial Blood Glucose Urine WBC (Auto) Urine Creatinine Urine Total Protein Phenytoin Coronavirus (PCR) Crossmatch 06/02/20 06/02/20 06/02/20 04:20 04:20 04:44 WBC RBC Hgb 10.0 L Hct MCHC RDW Lymph % (Auto) [place] % (Auto) Eos % (Auto) Lymph # [place] # Lymph # (Auto) [place] # (Auto) Eos # (Auto) Seg Neutrophils % Seg Neuts % (Manual) Lymphocytes % (Manual) Seg Neutrophils # Seg Neutrophils # Man Lymphocytes # (Manual) Monocytes % (Manual) Eosinophils % (Manual) Monocytes # (Manual) Eosinophils # (Manual) D-Dimer Heparin Anti-Xa Level 0.10 L ABG pH POC ABG pCO2 POC ABG pO2 ABG pO2 150.6 H ABG HCO3 ABG O2 Saturation ABG Base Excess -4.1 L ABG Hemoglobin 11.8 L ABG Oxyhemoglobin VBG pH ABG Sodium ABG Potassium ABG Glucose Oxyhemoglobin Sodium Potassium Chloride Carbon Dioxide BUN Creatinine Glucose POC Glucose Lactic Acid Calcium Ferritin AST Alkaline Phosphatase Magnesium Lactate Dehydrogenase Total Creatine Kinase CK-MB (CK-2) C-Reactive Protein Total Protein Albumin Troponin T HDL Cholesterol Arterial Blood Glucose Urine WBC (Auto) Urine Creatinine Urine Total Protein Phenytoin Coronavirus (PCR) Crossmatch 06/02/20 06/02/20 06/02/20 05:53 12:04 13:49 WBC RBC Hgb Hct MCHC RDW Lymph % (Auto) [place] % (Auto) Eos % (Auto) Lymph # [place] # Lymph # (Auto) [place] # (Auto) Eos # (Auto) Seg Neutrophils % Seg Neuts % (Manual) Lymphocytes % (Manual) Seg Neutrophils # Seg Neutrophils # Man Lymphocytes # (Manual) Monocytes % (Manual) Eosinophils % (Manual) Monocytes # (Manual) Eosinophils # (Manual) D-Dimer Heparin Anti-Xa Level 0.28 L ABG pH POC ABG pCO2 POC ABG pO2 ABG pO2 ABG HCO3 ABG O2 Saturation ABG Base Excess ABG Hemoglobin ABG Oxyhemoglobin VBG pH ABG Sodium ABG Potassium ABG Glucose Oxyhemoglobin Sodium Potassium Chloride Carbon Dioxide BUN Creatinine Glucose POC Glucose 149 H 220 H Lactic Acid Calcium Ferritin AST Alkaline Phosphatase Magnesium Lactate Dehydrogenase Total Creatine Kinase CK-MB (CK-2) C-Reactive Protein Total Protein Albumin Troponin T HDL Cholesterol Arterial Blood Glucose Urine WBC (Auto) Urine Creatinine Urine Total Protein Phenytoin Coronavirus (PCR) Crossmatch 06/02/20 06/02/20 06/03/20 13:49 18:31 00:42 WBC RBC Hgb Hct MCHC RDW Lymph % (Auto) [place] % (Auto) Eos % (Auto) Lymph # [place] # Lymph # (Auto) [place] # (Auto) Eos # (Auto) Seg Neutrophils % Seg Neuts % (Manual) Lymphocytes % (Manual) Seg Neutrophils # Seg Neutrophils # Man Lymphocytes # (Manual) Monocytes % (Manual) Eosinophils % (Manual) Monocytes # (Manual) Eosinophils # (Manual) D-Dimer 769.68 H Heparin Anti-Xa Level ABG pH POC ABG pCO2 POC ABG pO2 ABG pO2 ABG HCO3 ABG O2 Saturation ABG Base Excess ABG Hemoglobin ABG Oxyhemoglobin VBG pH ABG Sodium ABG Potassium ABG Glucose Oxyhemoglobin Sodium Potassium Chloride Carbon Dioxide BUN Creatinine Glucose POC Glucose 225 H 212 H Lactic Acid Calcium Ferritin AST Alkaline Phosphatase Magnesium Lactate Dehydrogenase Total Creatine Kinase CK-MB (CK-2) C-Reactive Protein Total Protein Albumin Troponin T HDL Cholesterol Arterial Blood Glucose Urine WBC (Auto) Urine Creatinine Urine Total Protein Phenytoin Coronavirus (PCR) Crossmatch 06/03/20 06/03/20 06/03/20 05:16 05:16 05:25 WBC 11.4 H RBC Hgb Hct MCHC RDW 16.4 H Lymph % (Auto) [place] % (Auto) Eos % (Auto) Lymph # [place] # Lymph # (Auto) [place] # (Auto) Eos # (Auto) Seg Neutrophils % Seg Neuts % (Manual) Lymphocytes % (Manual) Seg Neutrophils # Seg Neutrophils # Man Lymphocytes # (Manual) Monocytes % (Manual) Eosinophils % (Manual) Monocytes # (Manual) Eosinophils # (Manual) D-Dimer Heparin Anti-Xa Level ABG pH POC ABG pCO2 POC ABG pO2 ABG pO2 160.9 H ABG HCO3 19.4 L ABG O2 Saturation ABG Base Excess -4.9 L ABG Hemoglobin 7.0 L ABG Oxyhemoglobin VBG pH ABG Sodium ABG Potassium ABG Glucose Oxyhemoglobin Sodium Potassium Chloride Carbon Dioxide 18 L BUN 65 H Creatinine 2.0 H Glucose 175 H POC Glucose Lactic Acid Calcium 8.0 L Ferritin AST Alkaline Phosphatase Magnesium Lactate Dehydrogenase Total Creatine Kinase CK-MB (CK-2) C-Reactive Protein Total Protein 5.5 L Albumin 2.2 L Troponin T HDL Cholesterol Arterial Blood Glucose Urine WBC (Auto) Urine Creatinine Urine Total Protein Phenytoin Coronavirus (PCR) Crossmatch 06/03/20 06/03/20 06/03/20 06:07 11:58 18:24 WBC RBC Hgb Hct MCHC RDW Lymph % (Auto) [place] % (Auto) Eos % (Auto) Lymph # [place] # Lymph # (Auto) [place] # (Auto) Eos # (Auto) Seg Neutrophils % Seg Neuts % (Manual) Lymphocytes % (Manual) Seg Neutrophils # Seg Neutrophils # Man Lymphocytes # (Manual) Monocytes % (Manual) Eosinophils % (Manual) Monocytes # (Manual) Eosinophils # (Manual) D-Dimer Heparin Anti-Xa Level ABG pH POC ABG pCO2 POC ABG pO2 ABG pO2 ABG HCO3 ABG O2 Saturation ABG Base Excess ABG Hemoglobin ABG Oxyhemoglobin VBG pH ABG Sodium ABG Potassium ABG Glucose Oxyhemoglobin Sodium Potassium Chloride Carbon Dioxide BUN Creatinine Glucose POC Glucose 177 H 163 H 211 H Lactic Acid Calcium Ferritin AST Alkaline Phosphatase Magnesium Lactate Dehydrogenase Total Creatine Kinase CK-MB (CK-2) C-Reactive Protein Total Protein Albumin Troponin T HDL Cholesterol Arterial Blood Glucose Urine WBC (Auto) Urine Creatinine Urine Total Protein Phenytoin Coronavirus (PCR) Crossmatch 06/03/20 06/03/20 06/04/20 21:50 Unknown 00:26 WBC RBC Hgb Hct MCHC RDW Lymph % (Auto) [place] % (Auto) Eos % (Auto) Lymph # [place] # Lymph # (Auto) [place] # (Auto) Eos # (Auto) Seg Neutrophils % Seg Neuts % (Manual) Lymphocytes % (Manual) Seg Neutrophils # Seg Neutrophils # Man Lymphocytes # (Manual) Monocytes % (Manual) Eosinophils % (Manual) Monocytes # (Manual) Eosinophils # (Manual) D-Dimer Heparin Anti-Xa Level ABG pH POC ABG pCO2 POC ABG pO2 ABG pO2 ABG HCO3 ABG O2 Saturation ABG Base Excess ABG Hemoglobin ABG Oxyhemoglobin VBG pH ABG Sodium ABG Potassium ABG Glucose Oxyhemoglobin Sodium 135 L Potassium Chloride Carbon Dioxide 18 L BUN Creatinine Glucose POC Glucose 241 H Lactic Acid Calcium Ferritin AST Alkaline Phosphatase Magnesium Lactate Dehydrogenase Total Creatine Kinase CK-MB (CK-2) C-Reactive Protein Total Protein Albumin Troponin T HDL Cholesterol Arterial Blood Glucose Urine WBC (Auto) 11.0 H Urine Creatinine Urine Total Protein Phenytoin Coronavirus (PCR) Crossmatch 06/04/20 06/04/20 06/04/20 03:35 04:19 04:19 WBC RBC 3.15 L Hgb 8.9 L Hct 26.8 L D MCHC RDW 15.9 H Lymph % (Auto) 6.0 L [place] % (Auto) Eos % (Auto) Lymph # 0.6 L [place] # Lymph # (Auto) [place] # (Auto) Eos # (Auto) Seg Neutrophils % 86.6 H Seg Neuts % (Manual) Lymphocytes % (Manual) Seg Neutrophils # 9.1 H Seg Neutrophils # Man Lymphocytes # (Manual) Monocytes % (Manual) Eosinophils % (Manual) Monocytes # (Manual) Eosinophils # (Manual) D-Dimer Heparin Anti-Xa Level ABG pH 7.331 L POC ABG pCO2 POC ABG pO2 ABG pO2 ABG HCO3 ABG O2 Saturation ABG Base Excess -4.7 L ABG Hemoglobin 11.0 L ABG Oxyhemoglobin VBG pH ABG Sodium ABG Potassium ABG Glucose Oxyhemoglobin 93.9 L Sodium 136 L Potassium Chloride Carbon Dioxide 20 L BUN 73 H Creatinine 2.0 H Glucose 192 H POC Glucose Lactic Acid Calcium 8.0 L Ferritin AST Alkaline Phosphatase Magnesium Lactate Dehydrogenase 271 H Total Creatine Kinase CK-MB (CK-2) C-Reactive Protein 2.20 H Total Protein 5.0 L Albumin 2.0 L Troponin T HDL Cholesterol Arterial Blood Glucose Urine WBC (Auto) Urine Creatinine Urine Total Protein Phenytoin Coronavirus (PCR) Crossmatch 06/04/20 06/04/20 06/04/20 04:19 05:51 11:48 WBC RBC Hgb Hct MCHC RDW Lymph % (Auto) [place] % (Auto) Eos % (Auto) Lymph # [place] # Lymph # (Auto) [place] # (Auto) Eos # (Auto) Seg Neutrophils % Seg Neuts % (Manual) Lymphocytes % (Manual) Seg Neutrophils # Seg Neutrophils # Man Lymphocytes # (Manual) Monocytes % (Manual) Eosinophils % (Manual) Monocytes # (Manual) Eosinophils # (Manual) D-Dimer 414.52 H Heparin Anti-Xa Level ABG pH POC ABG pCO2 POC ABG pO2 ABG pO2 ABG HCO3 ABG O2 Saturation ABG Base Excess ABG Hemoglobin ABG Oxyhemoglobin VBG pH ABG Sodium ABG Potassium ABG Glucose Oxyhemoglobin Sodium Potassium Chloride Carbon Dioxide BUN Creatinine Glucose POC Glucose 179 H 213 H Lactic Acid Calcium Ferritin AST Alkaline Phosphatase Magnesium Lactate Dehydrogenase Total Creatine Kinase CK-MB (CK-2) C-Reactive Protein Total Protein Albumin Troponin T HDL Cholesterol Arterial Blood Glucose Urine WBC (Auto) Urine Creatinine Urine Total Protein Phenytoin Coronavirus (PCR) Crossmatch 06/04/20 06/05/20 06/05/20 18:25 00:16 05:00 WBC RBC Hgb Hct MCHC RDW Lymph % (Auto) [place] % (Auto) Eos % (Auto) Lymph # [place] # Lymph # (Auto) [place] # (Auto) Eos # (Auto) Seg Neutrophils % Seg Neuts % (Manual) Lymphocytes % (Manual) Seg Neutrophils # Seg Neutrophils # Man Lymphocytes # (Manual) Monocytes % (Manual) Eosinophils % (Manual) Monocytes # (Manual) Eosinophils # (Manual) D-Dimer Heparin Anti-Xa Level ABG pH 7.286 L POC ABG pCO2 POC ABG pO2 ABG pO2 96.2 H ABG HCO3 ABG O2 Saturation ABG Base Excess -6.3 L ABG Hemoglobin 8.8 L ABG Oxyhemoglobin VBG pH ABG Sodium ABG Potassium ABG Glucose Oxyhemoglobin 94.8 L Sodium Potassium Chloride Carbon Dioxide BUN Creatinine Glucose POC Glucose 238 H 183 H Lactic Acid Calcium Ferritin AST Alkaline Phosphatase Magnesium Lactate Dehydrogenase Total Creatine Kinase CK-MB (CK-2) C-Reactive Protein Total Protein Albumin Troponin T HDL Cholesterol Arterial Blood Glucose Urine WBC (Auto) Urine Creatinine Urine Total Protein Phenytoin Coronavirus (PCR) Crossmatch 06/05/20 06/05/20 06/05/20 05:39 07:25 07:25 WBC RBC 2.97 L Hgb 8.7 L Hct 25.7 L MCHC RDW 16.0 H Lymph % (Auto) 8.8 L [place] % (Auto) 13.3 H Eos % (Auto) Lymph # 0.8 L [place] # 1.3 H Lymph # (Auto) [place] # (Auto) Eos # (Auto) Seg Neutrophils % 77.3 H Seg Neuts % (Manual) Lymphocytes % (Manual) Seg Neutrophils # Seg Neutrophils # Man Lymphocytes # (Manual) Monocytes % (Manual) Eosinophils % (Manual) Monocytes # (Manual) Eosinophils # (Manual) D-Dimer Heparin Anti-Xa Level ABG pH POC ABG pCO2 POC ABG pO2 ABG pO2 ABG HCO3 ABG O2 Saturation ABG Base Excess ABG Hemoglobin ABG Oxyhemoglobin VBG pH ABG Sodium ABG Potassium ABG Glucose Oxyhemoglobin Sodium 133 L Potassium Chloride Carbon Dioxide 17 L BUN 89 H Creatinine 2.8 H Glucose 176 H POC Glucose 149 H Lactic Acid Calcium 7.7 L Ferritin AST Alkaline Phosphatase Magnesium Lactate Dehydrogenase Total Creatine Kinase CK-MB (CK-2) C-Reactive Protein Total Protein 4.2 L Albumin 1.9 L Troponin T HDL Cholesterol Arterial Blood Glucose Urine WBC (Auto) Urine Creatinine Urine Total Protein Phenytoin Coronavirus (PCR) Crossmatch 06/05/20 06/05/20 06/05/20 07:25 12:05 15:41 WBC RBC Hgb Hct MCHC RDW Lymph % (Auto) [place] % (Auto) Eos % (Auto) Lymph # [place] # Lymph # (Auto) [place] # (Auto) Eos # (Auto) Seg Neutrophils % Seg Neuts % (Manual) Lymphocytes % (Manual) Seg Neutrophils # Seg Neutrophils # Man Lymphocytes # (Manual) Monocytes % (Manual) Eosinophils % (Manual) Monocytes # (Manual) Eosinophils # (Manual) D-Dimer Heparin Anti-Xa Level 0.76 H 0.81 H ABG pH POC ABG pCO2 POC ABG pO2 ABG pO2 ABG HCO3 ABG O2 Saturation ABG Base Excess ABG Hemoglobin ABG Oxyhemoglobin VBG pH ABG Sodium ABG Potassium ABG Glucose Oxyhemoglobin Sodium Potassium Chloride Carbon Dioxide BUN Creatinine Glucose POC Glucose 198 H Lactic Acid Calcium Ferritin AST Alkaline Phosphatase Magnesium Lactate Dehydrogenase Total Creatine Kinase CK-MB (CK-2) C-Reactive Protein Total Protein Albumin Troponin T HDL Cholesterol Arterial Blood Glucose Urine WBC (Auto) Urine Creatinine Urine Total Protein Phenytoin Coronavirus (PCR) Crossmatch 06/05/20 06/05/20 06/06/20 18:08 23:25 04:00 WBC RBC Hgb Hct MCHC RDW Lymph % (Auto) [place] % (Auto) Eos % (Auto) Lymph # [place] # Lymph # (Auto) [place] # (Auto) Eos # (Auto) Seg Neutrophils % Seg Neuts % (Manual) Lymphocytes % (Manual) Seg Neutrophils # Seg Neutrophils # Man Lymphocytes # (Manual) Monocytes % (Manual) Eosinophils % (Manual) Monocytes # (Manual) Eosinophils # (Manual) D-Dimer Heparin Anti-Xa Level ABG pH POC ABG pCO2 POC ABG pO2 ABG pO2 ABG HCO3 ABG O2 Saturation ABG Base Excess ABG Hemoglobin ABG Oxyhemoglobin VBG pH ABG Sodium ABG Potassium ABG Glucose Oxyhemoglobin Sodium Potassium Chloride Carbon Dioxide BUN Creatinine Glucose POC Glucose 223 H 169 H Lactic Acid Calcium Ferritin AST Alkaline Phosphatase Magnesium Lactate Dehydrogenase Total Creatine Kinase CK-MB (CK-2) C-Reactive Protein Total Protein Albumin Troponin T HDL Cholesterol Arterial Blood Glucose Urine WBC (Auto) 15.0 H Urine Creatinine Urine Total Protein Phenytoin Coronavirus (PCR) Crossmatch 06/06/20 06/06/20 06/06/20 04:00 05:33 05:38 WBC RBC 2.97 L Hgb 8.7 L Hct 26.8 L MCHC RDW 16.8 H Lymph % (Auto) [place] % (Auto) Eos % (Auto) Lymph # [place] # Lymph # (Auto) [place] # (Auto) Eos # (Auto) Seg Neutrophils % Seg Neuts % (Manual) Lymphocytes % (Manual) Seg Neutrophils # Seg Neutrophils # Man Lymphocytes # (Manual) Monocytes % (Manual) Eosinophils % (Manual) Monocytes # (Manual) Eosinophils # (Manual) D-Dimer Heparin Anti-Xa Level ABG pH POC ABG pCO2 POC ABG pO2 ABG pO2 ABG HCO3 ABG O2 Saturation ABG Base Excess ABG Hemoglobin ABG Oxyhemoglobin VBG pH ABG Sodium ABG Potassium ABG Glucose Oxyhemoglobin Sodium Potassium Chloride Carbon Dioxide BUN Creatinine Glucose POC Glucose 186 H Lactic Acid Calcium Ferritin AST Alkaline Phosphatase Magnesium Lactate Dehydrogenase Total Creatine Kinase CK-MB (CK-2) C-Reactive Protein Total Protein Albumin Troponin T HDL Cholesterol Arterial Blood Glucose Urine WBC (Auto) Urine Creatinine 82.2 H Urine Total Protein 196 H Phenytoin Coronavirus (PCR) Crossmatch 06/06/20 06/06/20 06/06/20 05:38 12:25 17:03 WBC RBC Hgb Hct MCHC RDW Lymph % (Auto) [place] % (Auto) Eos % (Auto) Lymph # [place] # Lymph # (Auto) [place] # (Auto) Eos # (Auto) Seg Neutrophils % Seg Neuts % (Manual) Lymphocytes % (Manual) Seg Neutrophils # Seg Neutrophils # Man Lymphocytes # (Manual) Monocytes % (Manual) Eosinophils % (Manual) Monocytes # (Manual) Eosinophils # (Manual) D-Dimer Heparin Anti-Xa Level ABG pH POC ABG pCO2 POC ABG pO2 ABG pO2 ABG HCO3 ABG O2 Saturation ABG Base Excess ABG Hemoglobin ABG Oxyhemoglobin VBG pH ABG Sodium ABG Potassium ABG Glucose Oxyhemoglobin Sodium 134 L Potassium 5.2 H Chloride Carbon Dioxide 18 L BUN 97 H Creatinine 2.5 H Glucose 193 H POC Glucose 239 H 252 H Lactic Acid Calcium 7.5 L Ferritin AST Alkaline Phosphatase Magnesium Lactate Dehydrogenase Total Creatine Kinase CK-MB (CK-2) C-Reactive Protein Total Protein 4.1 L Albumin 1.9 L Troponin T HDL Cholesterol Arterial Blood Glucose Urine WBC (Auto) Urine Creatinine Urine Total Protein Phenytoin Coronavirus (PCR) Crossmatch 06/07/20 06/07/20 06/07/20 00:16 01:49 04:00 WBC RBC 2.91 L Hgb 8.4 L Hct 25.0 L MCHC RDW 16.1 H Lymph % (Auto) 5.7 L [place] % (Auto) 10.5 H Eos % (Auto) Lymph # 0.6 L [place] # 1.1 H Lymph # (Auto) [place] # (Auto) Eos # (Auto) Seg Neutrophils % 83.6 H Seg Neuts % (Manual) Lymphocytes % (Manual) Seg Neutrophils # 9.1 H Seg Neutrophils # Man Lymphocytes # (Manual) Monocytes % (Manual) Eosinophils % (Manual) Monocytes # (Manual) Eosinophils # (Manual) D-Dimer Heparin Anti-Xa Level 0.26 L ABG pH POC ABG pCO2 POC ABG pO2 ABG pO2 ABG HCO3 ABG O2 Saturation ABG Base Excess ABG Hemoglobin ABG Oxyhemoglobin VBG pH ABG Sodium ABG Potassium ABG Glucose Oxyhemoglobin Sodium Potassium Chloride Carbon Dioxide BUN Creatinine Glucose POC Glucose 173 H Lactic Acid Calcium Ferritin AST Alkaline Phosphatase Magnesium Lactate Dehydrogenase Total Creatine Kinase CK-MB (CK-2) C-Reactive Protein Total Protein Albumin Troponin T HDL Cholesterol Arterial Blood Glucose Urine WBC (Auto) Urine Creatinine Urine Total Protein Phenytoin Coronavirus (PCR) Crossmatch 06/07/20 06/07/20 06/07/20 04:00 04:54 05:51 WBC RBC Hgb Hct MCHC RDW Lymph % (Auto) [place] % (Auto) Eos % (Auto) Lymph # [place] # Lymph # (Auto) [place] # (Auto) Eos # (Auto) Seg Neutrophils % Seg Neuts % (Manual) Lymphocytes % (Manual) Seg Neutrophils # Seg Neutrophils # Man Lymphocytes # (Manual) Monocytes % (Manual) Eosinophils % (Manual) Monocytes # (Manual) Eosinophils # (Manual) D-Dimer Heparin Anti-Xa Level ABG pH 7.317 L POC ABG pCO2 POC ABG pO2 ABG pO2 71.4 L ABG HCO3 ABG O2 Saturation 94.3 L ABG Base Excess -4.8 L ABG Hemoglobin 7.1 L ABG Oxyhemoglobin VBG pH ABG Sodium ABG Potassium ABG Glucose Oxyhemoglobin 92.2 L Sodium 133 L Potassium Chloride Carbon Dioxide 18 L BUN 100 H Creatinine 2.5 H Glucose 158 H POC Glucose 168 H Lactic Acid Calcium 7.6 L Ferritin AST Alkaline Phosphatase Magnesium Lactate Dehydrogenase Total Creatine Kinase CK-MB (CK-2) C-Reactive Protein Total Protein 4.7 L Albumin 2.0 L Troponin T HDL Cholesterol Arterial Blood Glucose Urine WBC (Auto) Urine Creatinine Urine Total Protein Phenytoin Coronavirus (PCR) Crossmatch 06/07/20 06/07/20 06/07/20 12:03 17:17 20:10 WBC RBC Hgb Hct MCHC RDW Lymph % (Auto) [place] % (Auto) Eos % (Auto) Lymph # [place] # Lymph # (Auto) [place] # (Auto) Eos # (Auto) Seg Neutrophils % Seg Neuts % (Manual) Lymphocytes % (Manual) Seg Neutrophils # Seg Neutrophils # Man Lymphocytes # (Manual) Monocytes % (Manual) Eosinophils % (Manual) Monocytes # (Manual) Eosinophils # (Manual) D-Dimer Heparin Anti-Xa Level 0.17 L ABG pH POC ABG pCO2 POC ABG pO2 ABG pO2 ABG HCO3 ABG O2 Saturation ABG Base Excess ABG Hemoglobin ABG Oxyhemoglobin VBG pH ABG Sodium ABG Potassium ABG Glucose Oxyhemoglobin Sodium Potassium Chloride Carbon Dioxide BUN Creatinine Glucose POC Glucose 276 H 281 H Lactic Acid Calcium Ferritin AST Alkaline Phosphatase Magnesium Lactate Dehydrogenase Total Creatine Kinase CK-MB (CK-2) C-Reactive Protein Total Protein Albumin Troponin T HDL Cholesterol Arterial Blood Glucose Urine WBC (Auto) Urine Creatinine Urine Total Protein Phenytoin Coronavirus (PCR) Crossmatch 06/08/20 06/08/20 06/08/20 00:02 04:47 04:47 WBC 16.4 H RBC 3.07 L Hgb 8.6 L Hct 26.5 L MCHC RDW 16.3 H Lymph % (Auto) [place] % (Auto) Eos % (Auto) Lymph # [place] # Lymph # (Auto) [place] # (Auto) Eos # (Auto) Seg Neutrophils % Seg Neuts % (Manual) 90.0 H Lymphocytes % (Manual) 3.0 L Seg Neutrophils # Seg Neutrophils # Man 14.8 H Lymphocytes # (Manual) 0.5 L Monocytes % (Manual) Eosinophils % (Manual) Monocytes # (Manual) 1.1 H Eosinophils # (Manual) D-Dimer Heparin Anti-Xa Level ABG pH POC ABG pCO2 POC ABG pO2 ABG pO2 ABG HCO3 ABG O2 Saturation ABG Base Excess ABG Hemoglobin ABG Oxyhemoglobin VBG pH ABG Sodium ABG Potassium ABG Glucose Oxyhemoglobin Sodium 129 L Potassium Chloride 95.6 L Carbon Dioxide 17 L BUN 106 H Creatinine 2.5 H Glucose 213 H POC Glucose 242 H Lactic Acid Calcium 7.6 L Ferritin AST Alkaline Phosphatase Magnesium Lactate Dehydrogenase Total Creatine Kinase CK-MB (CK-2) C-Reactive Protein Total Protein 5.0 L Albumin 2.1 L Troponin T HDL Cholesterol Arterial Blood Glucose Urine WBC (Auto) Urine Creatinine Urine Total Protein Phenytoin Coronavirus (PCR) Crossmatch 06/08/20 06/08/20 06/08/20 05:40 11:55 17:54 WBC RBC Hgb Hct MCHC RDW Lymph % (Auto) [place] % (Auto) Eos % (Auto) Lymph # [place] # Lymph # (Auto) [place] # (Auto) Eos # (Auto) Seg Neutrophils % Seg Neuts % (Manual) Lymphocytes % (Manual) Seg Neutrophils # Seg Neutrophils # Man Lymphocytes # (Manual) Monocytes % (Manual) Eosinophils % (Manual) Monocytes # (Manual) Eosinophils # (Manual) D-Dimer Heparin Anti-Xa Level ABG pH POC ABG pCO2 POC ABG pO2 ABG pO2 ABG HCO3 ABG O2 Saturation ABG Base Excess ABG Hemoglobin ABG Oxyhemoglobin VBG pH ABG Sodium ABG Potassium ABG Glucose Oxyhemoglobin Sodium Potassium Chloride Carbon Dioxide BUN Creatinine Glucose POC Glucose 221 H 218 H 163 H Lactic Acid Calcium Ferritin AST Alkaline Phosphatase Magnesium Lactate Dehydrogenase Total Creatine Kinase CK-MB (CK-2) C-Reactive Protein Total Protein Albumin Troponin T HDL Cholesterol Arterial Blood Glucose Urine WBC (Auto) Urine Creatinine Urine Total Protein Phenytoin Coronavirus (PCR) Crossmatch 06/08/20 06/09/20 06/09/20 22:01 00:09 05:16 WBC 19.0 H RBC 3.35 L Hgb 9.2 L Hct 28.5 L MCHC RDW 16.3 H Lymph % (Auto) [place] % (Auto) Eos % (Auto) Lymph # [place] # Lymph # (Auto) [place] # (Auto) Eos # (Auto) Seg Neutrophils % Seg Neuts % (Manual) 85.0 H Lymphocytes % (Manual) 7.0 L Seg Neutrophils # Seg Neutrophils # Man 16.2 H Lymphocytes # (Manual) Monocytes % (Manual) Eosinophils % (Manual) Monocytes # (Manual) 1.3 H Eosinophils # (Manual) D-Dimer Heparin Anti-Xa Level ABG pH POC ABG pCO2 POC ABG pO2 ABG pO2 ABG HCO3 ABG O2 Saturation ABG Base Excess ABG Hemoglobin ABG Oxyhemoglobin VBG pH ABG Sodium ABG Potassium ABG Glucose Oxyhemoglobin Sodium Potassium Chloride Carbon Dioxide BUN Creatinine Glucose POC Glucose 182 H 150 H Lactic Acid Calcium Ferritin AST Alkaline Phosphatase Magnesium Lactate Dehydrogenase Total Creatine Kinase CK-MB (CK-2) C-Reactive Protein Total Protein Albumin Troponin T HDL Cholesterol Arterial Blood Glucose Urine WBC (Auto) Urine Creatinine Urine Total Protein Phenytoin Coronavirus (PCR) Crossmatch 06/09/20 06/09/20 06/09/20 05:16 05:24 11:29 WBC RBC Hgb Hct MCHC RDW Lymph % (Auto) [place] % (Auto) Eos % (Auto) Lymph # [place] # Lymph # (Auto) [place] # (Auto) Eos # (Auto) Seg Neutrophils % Seg Neuts % (Manual) Lymphocytes % (Manual) Seg Neutrophils # Seg Neutrophils # Man Lymphocytes # (Manual) Monocytes % (Manual) Eosinophils % (Manual) Monocytes # (Manual) Eosinophils # (Manual) D-Dimer Heparin Anti-Xa Level ABG pH POC ABG pCO2 POC ABG pO2 ABG pO2 ABG HCO3 ABG O2 Saturation ABG Base Excess ABG Hemoglobin ABG Oxyhemoglobin VBG pH ABG Sodium ABG Potassium ABG Glucose Oxyhemoglobin Sodium 133 L Potassium Chloride Carbon Dioxide 19 L BUN 109 H Creatinine 2.1 H Glucose 133 H POC Glucose 128 H 119 H Lactic Acid Calcium 7.7 L Ferritin AST Alkaline Phosphatase < 5 L Magnesium Lactate Dehydrogenase Total Creatine Kinase CK-MB (CK-2) C-Reactive Protein Total Protein 4.6 L Albumin < 0.2 L Troponin T HDL Cholesterol Arterial Blood Glucose Urine WBC (Auto) Urine Creatinine Urine Total Protein Phenytoin Coronavirus (PCR) Crossmatch 06/09/20 06/10/20 06/10/20 17:32 00:00 05:49 WBC RBC Hgb Hct MCHC RDW Lymph % (Auto) [place] % (Auto) Eos % (Auto) Lymph # [place] # Lymph # (Auto) [place] # (Auto) Eos # (Auto) Seg Neutrophils % Seg Neuts % (Manual) Lymphocytes % (Manual) Seg Neutrophils # Seg Neutrophils # Man Lymphocytes # (Manual) Monocytes % (Manual) Eosinophils % (Manual) Monocytes # (Manual) Eosinophils # (Manual) D-Dimer Heparin Anti-Xa Level 0.19 L ABG pH POC ABG pCO2 POC ABG pO2 ABG pO2 ABG HCO3 ABG O2 Saturation ABG Base Excess ABG Hemoglobin ABG Oxyhemoglobin VBG pH ABG Sodium ABG Potassium ABG Glucose Oxyhemoglobin Sodium Potassium Chloride Carbon Dioxide BUN Creatinine Glucose POC Glucose 106 H 117 H Lactic Acid Calcium Ferritin AST Alkaline Phosphatase Magnesium Lactate Dehydrogenase Total Creatine Kinase CK-MB (CK-2) C-Reactive Protein Total Protein Albumin Troponin T HDL Cholesterol Arterial Blood Glucose Urine WBC (Auto) Urine Creatinine Urine Total Protein Phenytoin Coronavirus (PCR) Crossmatch 06/10/20 06/10/20 06/10/20 05:54 07:40 11:40 WBC RBC Hgb Hct MCHC RDW Lymph % (Auto) [place] % (Auto) Eos % (Auto) Lymph # [place] # Lymph # (Auto) [place] # (Auto) Eos # (Auto) Seg Neutrophils % Seg Neuts % (Manual) Lymphocytes % (Manual) Seg Neutrophils # Seg Neutrophils # Man Lymphocytes # (Manual) Monocytes % (Manual) Eosinophils % (Manual) Monocytes # (Manual) Eosinophils # (Manual) D-Dimer Heparin Anti-Xa Level ABG pH POC ABG pCO2 POC ABG pO2 ABG pO2 ABG HCO3 ABG O2 Saturation ABG Base Excess ABG Hemoglobin ABG Oxyhemoglobin VBG pH ABG Sodium ABG Potassium ABG Glucose Oxyhemoglobin Sodium 146 H D Potassium Chloride Carbon Dioxide 20 L BUN 99 H Creatinine 1.9 H Glucose 121 H POC Glucose 127 H 138 H Lactic Acid Calcium 8.2 L Ferritin AST Alkaline Phosphatase Magnesium Lactate Dehydrogenase Total Creatine Kinase CK-MB (CK-2) C-Reactive Protein Total Protein Albumin Troponin T HDL Cholesterol Arterial Blood Glucose Urine WBC (Auto) Urine Creatinine Urine Total Protein Phenytoin Coronavirus (PCR) Crossmatch 06/10/20 06/10/20 06/10/20 14:44 17:31 23:22 WBC RBC Hgb Hct MCHC RDW Lymph % (Auto) [place] % (Auto) Eos % (Auto) Lymph # [place] # Lymph # (Auto) [place] # (Auto) Eos # (Auto) Seg Neutrophils % Seg Neuts % (Manual) Lymphocytes % (Manual) Seg Neutrophils # Seg Neutrophils # Man Lymphocytes # (Manual) Monocytes % (Manual) Eosinophils % (Manual) Monocytes # (Manual) Eosinophils # (Manual) D-Dimer Heparin Anti-Xa Level 0.17 L ABG pH POC ABG pCO2 POC ABG pO2 ABG pO2 ABG HCO3 ABG O2 Saturation ABG Base Excess ABG Hemoglobin ABG Oxyhemoglobin VBG pH ABG Sodium ABG Potassium ABG Glucose Oxyhemoglobin Sodium Potassium Chloride Carbon Dioxide BUN Creatinine Glucose POC Glucose 128 H 114 H Lactic Acid Calcium Ferritin AST Alkaline Phosphatase Magnesium Lactate Dehydrogenase Total Creatine Kinase CK-MB (CK-2) C-Reactive Protein Total Protein Albumin Troponin T HDL Cholesterol Arterial Blood Glucose Urine WBC (Auto) Urine Creatinine Urine Total Protein Phenytoin Coronavirus (PCR) Crossmatch 06/11/20 06/11/20 06/11/20 00:22 03:45 03:45 WBC 14.6 H RBC 2.77 L Hgb 7.9 L Hct 24.3 L MCHC RDW 16.8 H Lymph % (Auto) 6.6 L [place] % (Auto) 8.5 H Eos % (Auto) Lymph # 1.0 L [place] # 1.2 H Lymph # (Auto) [place] # (Auto) Eos # (Auto) Seg Neutrophils % 82.9 H Seg Neuts % (Manual) Lymphocytes % (Manual) Seg Neutrophils # 12.1 H Seg Neutrophils # Man Lymphocytes # (Manual) Monocytes % (Manual) Eosinophils % (Manual) Monocytes # (Manual) Eosinophils # (Manual) D-Dimer Heparin Anti-Xa Level 0.24 L ABG pH POC ABG pCO2 POC ABG pO2 ABG pO2 ABG HCO3 ABG O2 Saturation ABG Base Excess ABG Hemoglobin ABG Oxyhemoglobin VBG pH ABG Sodium ABG Potassium ABG Glucose Oxyhemoglobin Sodium Potassium Chloride Carbon Dioxide 20 L BUN 88 H Creatinine 1.5 H Glucose 111 H POC Glucose Lactic Acid Calcium 8.2 L Ferritin AST Alkaline Phosphatase Magnesium Lactate Dehydrogenase Total Creatine Kinase CK-MB (CK-2) C-Reactive Protein Total Protein Albumin Troponin T HDL Cholesterol Arterial Blood Glucose Urine WBC (Auto) Urine Creatinine Urine Total Protein Phenytoin Coronavirus (PCR) Crossmatch 06/11/20 06/11/20 06/11/20 06:03 10:22 11:11 WBC RBC Hgb Hct MCHC RDW Lymph % (Auto) [place] % (Auto) Eos % (Auto) Lymph # [place] # Lymph # (Auto) [place] # (Auto) Eos # (Auto) Seg Neutrophils % Seg Neuts % (Manual) Lymphocytes % (Manual) Seg Neutrophils # Seg Neutrophils # Man Lymphocytes # (Manual) Monocytes % (Manual) Eosinophils % (Manual) Monocytes # (Manual) Eosinophils # (Manual) D-Dimer Heparin Anti-Xa Level 0.26 L ABG pH POC ABG pCO2 POC ABG pO2 ABG pO2 ABG HCO3 ABG O2 Saturation ABG Base Excess ABG Hemoglobin 9.6 L ABG Oxyhemoglobin VBG pH ABG Sodium ABG Potassium ABG Glucose Oxyhemoglobin Sodium Potassium Chloride Carbon Dioxide BUN Creatinine Glucose POC Glucose 114 H Lactic Acid Calcium Ferritin AST Alkaline Phosphatase Magnesium Lactate Dehydrogenase Total Creatine Kinase CK-MB (CK-2) C-Reactive Protein Total Protein Albumin Troponin T HDL Cholesterol Arterial Blood Glucose Urine WBC (Auto) Urine Creatinine Urine Total Protein Phenytoin Coronavirus (PCR) Crossmatch 06/11/20 06/11/20 06/12/20 12:24 17:24 00:21 WBC RBC Hgb Hct MCHC RDW Lymph % (Auto) [place] % (Auto) Eos % (Auto) Lymph # [place] # Lymph # (Auto) [place] # (Auto) Eos # (Auto) Seg Neutrophils % Seg Neuts % (Manual) Lymphocytes % (Manual) Seg Neutrophils # Seg Neutrophils # Man Lymphocytes # (Manual) Monocytes % (Manual) Eosinophils % (Manual) Monocytes # (Manual) Eosinophils # (Manual) D-Dimer Heparin Anti-Xa Level ABG pH POC ABG pCO2 POC ABG pO2 ABG pO2 ABG HCO3 ABG O2 Saturation ABG Base Excess ABG Hemoglobin ABG Oxyhemoglobin VBG pH ABG Sodium ABG Potassium ABG Glucose Oxyhemoglobin Sodium Potassium Chloride Carbon Dioxide BUN Creatinine Glucose POC Glucose 119 H 126 H 117 H Lactic Acid Calcium Ferritin AST Alkaline Phosphatase Magnesium Lactate Dehydrogenase Total Creatine Kinase CK-MB (CK-2) C-Reactive Protein Total Protein Albumin Troponin T HDL Cholesterol Arterial Blood Glucose Urine WBC (Auto) Urine Creatinine Urine Total Protein Phenytoin Coronavirus (PCR) Crossmatch 06/12/20 06/12/20 06/12/20 02:46 02:46 05:46 WBC 13.2 H RBC 2.83 L Hgb 8.3 L Hct 24.3 L MCHC RDW 16.6 H Lymph % (Auto) 6.2 L [place] % (Auto) 9.5 H Eos % (Auto) Lymph # 0.8 L [place] # 1.3 H Lymph # (Auto) [place] # (Auto) Eos # (Auto) Seg Neutrophils % 81.9 H Seg Neuts % (Manual) Lymphocytes % (Manual) Seg Neutrophils # 10.9 H Seg Neutrophils # Man Lymphocytes # (Manual) Monocytes % (Manual) Eosinophils % (Manual) Monocytes # (Manual) Eosinophils # (Manual) D-Dimer Heparin Anti-Xa Level ABG pH POC ABG pCO2 POC ABG pO2 ABG pO2 ABG HCO3 ABG O2 Saturation ABG Base Excess ABG Hemoglobin ABG Oxyhemoglobin VBG pH ABG Sodium ABG Potassium ABG Glucose Oxyhemoglobin Sodium Potassium 3.5 L Chloride Carbon Dioxide BUN 77 H Creatinine 1.3 H Glucose POC Glucose 132 H Lactic Acid Calcium 8.3 L Ferritin AST Alkaline Phosphatase Magnesium Lactate Dehydrogenase Total Creatine Kinase CK-MB (CK-2) C-Reactive Protein Total Protein Albumin Troponin T HDL Cholesterol Arterial Blood Glucose Urine WBC (Auto) Urine Creatinine Urine Total Protein Phenytoin Coronavirus (PCR) Crossmatch 06/12/20 06/12/20 06/12/20 09:20 12:16 17:48 WBC RBC Hgb Hct MCHC RDW Lymph % (Auto) [place] % (Auto) Eos % (Auto) Lymph # [place] # Lymph # (Auto) [place] # (Auto) Eos # (Auto) Seg Neutrophils % Seg Neuts % (Manual) Lymphocytes % (Manual) Seg Neutrophils # Seg Neutrophils # Man Lymphocytes # (Manual) Monocytes % (Manual) Eosinophils % (Manual) Monocytes # (Manual) Eosinophils # (Manual) D-Dimer Heparin Anti-Xa Level ABG pH POC ABG pCO2 POC ABG pO2 ABG pO2 91.1 H ABG HCO3 ABG O2 Saturation ABG Base Excess ABG Hemoglobin ABG Oxyhemoglobin VBG pH ABG Sodium ABG Potassium ABG Glucose Oxyhemoglobin 94.8 L Sodium Potassium Chloride Carbon Dioxide BUN Creatinine Glucose POC Glucose 167 H 182 H Lactic Acid Calcium Ferritin AST Alkaline Phosphatase Magnesium Lactate Dehydrogenase Total Creatine Kinase CK-MB (CK-2) C-Reactive Protein Total Protein Albumin Troponin T HDL Cholesterol Arterial Blood Glucose Urine WBC (Auto) Urine Creatinine Urine Total Protein Phenytoin Coronavirus (PCR) Crossmatch 06/13/20 06/13/20 06/13/20 00:08 05:37 09:09 WBC RBC Hgb Hct MCHC RDW Lymph % (Auto) [place] % (Auto) Eos % (Auto) Lymph # [place] # Lymph # (Auto) [place] # (Auto) Eos # (Auto) Seg Neutrophils % Seg Neuts % (Manual) Lymphocytes % (Manual) Seg Neutrophils # Seg Neutrophils # Man Lymphocytes # (Manual) Monocytes % (Manual) Eosinophils % (Manual) Monocytes # (Manual) Eosinophils # (Manual) D-Dimer Heparin Anti-Xa Level 0.86 H ABG pH POC ABG pCO2 POC ABG pO2 ABG pO2 ABG HCO3 ABG O2 Saturation ABG Base Excess ABG Hemoglobin ABG Oxyhemoglobin VBG pH ABG Sodium ABG Potassium ABG Glucose Oxyhemoglobin Sodium Potassium Chloride Carbon Dioxide BUN Creatinine Glucose POC Glucose 142 H 119 H Lactic Acid Calcium Ferritin AST Alkaline Phosphatase Magnesium Lactate Dehydrogenase Total Creatine Kinase CK-MB (CK-2) C-Reactive Protein Total Protein Albumin Troponin T HDL Cholesterol Arterial Blood Glucose Urine WBC (Auto) Urine Creatinine Urine Total Protein Phenytoin Coronavirus (PCR) Crossmatch 06/13/20 06/13/20 06/13/20 12:28 17:55 21:17 WBC RBC Hgb Hct MCHC RDW Lymph % (Auto) [place] % (Auto) Eos % (Auto) Lymph # [place] # Lymph # (Auto) [place] # (Auto) Eos # (Auto) Seg Neutrophils % Seg Neuts % (Manual) Lymphocytes % (Manual) Seg Neutrophils # Seg Neutrophils # Man Lymphocytes # (Manual) Monocytes % (Manual) Eosinophils % (Manual) Monocytes # (Manual) Eosinophils # (Manual) D-Dimer Heparin Anti-Xa Level ABG pH POC ABG pCO2 POC ABG pO2 ABG pO2 ABG HCO3 ABG O2 Saturation ABG Base Excess ABG Hemoglobin ABG Oxyhemoglobin VBG pH ABG Sodium ABG Potassium ABG Glucose Oxyhemoglobin Sodium Potassium Chloride Carbon Dioxide BUN 61 H Creatinine Glucose 131 H POC Glucose 165 H 174 H Lactic Acid Calcium Ferritin AST Alkaline Phosphatase Magnesium Lactate Dehydrogenase Total Creatine Kinase CK-MB (CK-2) C-Reactive Protein Total Protein Albumin Troponin T HDL Cholesterol Arterial Blood Glucose Urine WBC (Auto) Urine Creatinine Urine Total Protein Phenytoin Coronavirus (PCR) Crossmatch 06/13/20 06/13/20 06/14/20 21:17 23:50 05:34 WBC RBC Hgb Hct MCHC RDW Lymph % (Auto) [place] % (Auto) Eos % (Auto) Lymph # [place] # Lymph # (Auto) [place] # (Auto) Eos # (Auto) Seg Neutrophils % Seg Neuts % (Manual) Lymphocytes % (Manual) Seg Neutrophils # Seg Neutrophils # Man Lymphocytes # (Manual) Monocytes % (Manual) Eosinophils % (Manual) Monocytes # (Manual) Eosinophils # (Manual) D-Dimer Heparin Anti-Xa Level 0.72 H ABG pH POC ABG pCO2 POC ABG pO2 ABG pO2 ABG HCO3 ABG O2 Saturation ABG Base Excess ABG Hemoglobin ABG Oxyhemoglobin VBG pH ABG Sodium ABG Potassium ABG Glucose Oxyhemoglobin Sodium 146 H Potassium Chloride 107.6 H Carbon Dioxide BUN 61 H Creatinine 1.3 H Glucose 135 H POC Glucose 146 H Lactic Acid Calcium Ferritin AST Alkaline Phosphatase Magnesium Lactate Dehydrogenase Total Creatine Kinase CK-MB (CK-2) C-Reactive Protein Total Protein Albumin Troponin T HDL Cholesterol Arterial Blood Glucose Urine WBC (Auto) Urine Creatinine Urine Total Protein Phenytoin Coronavirus (PCR) Crossmatch 06/14/20 06/14/20 06/14/20 06:11 09:28 11:30 WBC RBC Hgb Hct MCHC RDW Lymph % (Auto) [place] % (Auto) Eos % (Auto) Lymph # [place] # Lymph # (Auto) [place] # (Auto) Eos # (Auto) Seg Neutrophils % Seg Neuts % (Manual) Lymphocytes % (Manual) Seg Neutrophils # Seg Neutrophils # Man Lymphocytes # (Manual) Monocytes % (Manual) Eosinophils % (Manual) Monocytes # (Manual) Eosinophils # (Manual) D-Dimer Heparin Anti-Xa Level 0.90 H ABG pH POC ABG pCO2 POC ABG pO2 ABG pO2 ABG HCO3 ABG O2 Saturation ABG Base Excess ABG Hemoglobin ABG Oxyhemoglobin VBG pH ABG Sodium ABG Potassium ABG Glucose Oxyhemoglobin Sodium Potassium Chloride Carbon Dioxide BUN Creatinine Glucose POC Glucose 141 H 186 H Lactic Acid Calcium Ferritin AST Alkaline Phosphatase Magnesium Lactate Dehydrogenase Total Creatine Kinase CK-MB (CK-2) C-Reactive Protein Total Protein Albumin Troponin T HDL Cholesterol Arterial Blood Glucose Urine WBC (Auto) Urine Creatinine Urine Total Protein Phenytoin Coronavirus (PCR) Crossmatch 06/14/20 06/14/20 06/14/20 16:07 18:16 23:51 WBC RBC Hgb Hct MCHC RDW Lymph % (Auto) [place] % (Auto) Eos % (Auto) Lymph # [place] # Lymph # (Auto) [place] # (Auto) Eos # (Auto) Seg Neutrophils % Seg Neuts % (Manual) Lymphocytes % (Manual) Seg Neutrophils # Seg Neutrophils # Man Lymphocytes # (Manual) Monocytes % (Manual) Eosinophils % (Manual) Monocytes # (Manual) Eosinophils # (Manual) D-Dimer Heparin Anti-Xa Level 0.82 H ABG pH POC ABG pCO2 POC ABG pO2 ABG pO2 ABG HCO3 ABG O2 Saturation ABG Base Excess ABG Hemoglobin ABG Oxyhemoglobin VBG pH ABG Sodium ABG Potassium ABG Glucose Oxyhemoglobin Sodium Potassium Chloride Carbon Dioxide BUN Creatinine Glucose POC Glucose 106 H 154 H Lactic Acid Calcium Ferritin AST Alkaline Phosphatase Magnesium Lactate Dehydrogenase Total Creatine Kinase CK-MB (CK-2) C-Reactive Protein Total Protein Albumin Troponin T HDL Cholesterol Arterial Blood Glucose Urine WBC (Auto) Urine Creatinine Urine Total Protein Phenytoin Coronavirus (PCR) Crossmatch 06/15/20 06/15/20 06/15/20 04:24 04:24 05:59 WBC RBC 2.75 L Hgb 7.9 L Hct 24.0 L MCHC RDW 16.4 H Lymph % (Auto) 12.9 L [place] % (Auto) 8.7 H Eos % (Auto) 4.6 H Lymph # 1.1 L [place] # Lymph # (Auto) [place] # (Auto) Eos # (Auto) Seg Neutrophils % 73.2 H Seg Neuts % (Manual) Lymphocytes % (Manual) Seg Neutrophils # Seg Neutrophils # Man Lymphocytes # (Manual) Monocytes % (Manual) Eosinophils % (Manual) Monocytes # (Manual) Eosinophils # (Manual) D-Dimer Heparin Anti-Xa Level ABG pH POC ABG pCO2 POC ABG pO2 ABG pO2 ABG HCO3 ABG O2 Saturation ABG Base Excess ABG Hemoglobin ABG Oxyhemoglobin VBG pH ABG Sodium ABG Potassium ABG Glucose Oxyhemoglobin Sodium Potassium 3.4 L Chloride Carbon Dioxide BUN 55 H Creatinine 1.3 H Glucose 142 H POC Glucose 131 H Lactic Acid Calcium Ferritin AST Alkaline Phosphatase Magnesium Lactate Dehydrogenase Total Creatine Kinase CK-MB (CK-2) C-Reactive Protein Total Protein Albumin Troponin T HDL Cholesterol Arterial Blood Glucose Urine WBC (Auto) Urine Creatinine Urine Total Protein Phenytoin Coronavirus (PCR) Crossmatch 06/15/20 06/15/20 06/16/20 12:33 17:07 00:22 WBC RBC Hgb Hct MCHC RDW Lymph % (Auto) [place] % (Auto) Eos % (Auto) Lymph # [place] # Lymph # (Auto) [place] # (Auto) Eos # (Auto) Seg Neutrophils % Seg Neuts % (Manual) Lymphocytes % (Manual) Seg Neutrophils # Seg Neutrophils # Man Lymphocytes # (Manual) Monocytes % (Manual) Eosinophils % (Manual) Monocytes # (Manual) Eosinophils # (Manual) D-Dimer Heparin Anti-Xa Level 0.21 L ABG pH POC ABG pCO2 POC ABG pO2 ABG pO2 ABG HCO3 ABG O2 Saturation ABG Base Excess ABG Hemoglobin ABG Oxyhemoglobin VBG pH ABG Sodium ABG Potassium ABG Glucose Oxyhemoglobin Sodium Potassium Chloride Carbon Dioxide BUN Creatinine Glucose POC Glucose 180 H 185 H Lactic Acid Calcium Ferritin AST Alkaline Phosphatase Magnesium Lactate Dehydrogenase Total Creatine Kinase CK-MB (CK-2) C-Reactive Protein Total Protein Albumin Troponin T HDL Cholesterol Arterial Blood Glucose Urine WBC (Auto) Urine Creatinine Urine Total Protein Phenytoin Coronavirus (PCR) Crossmatch 06/16/20 06/16/20 06/16/20 01:45 08:06 09:15 WBC RBC Hgb Hct MCHC RDW Lymph % (Auto) [place] % (Auto) Eos % (Auto) Lymph # [place] # Lymph # (Auto) [place] # (Auto) Eos # (Auto) Seg Neutrophils % Seg Neuts % (Manual) Lymphocytes % (Manual) Seg Neutrophils # Seg Neutrophils # Man Lymphocytes # (Manual) Monocytes % (Manual) Eosinophils % (Manual) Monocytes # (Manual) Eosinophils # (Manual) D-Dimer Heparin Anti-Xa Level ABG pH POC ABG pCO2 POC ABG pO2 ABG pO2 ABG HCO3 ABG O2 Saturation ABG Base Excess ABG Hemoglobin ABG Oxyhemoglobin VBG pH ABG Sodium ABG Potassium ABG Glucose Oxyhemoglobin Sodium Potassium Chloride Carbon Dioxide BUN 49 H Creatinine Glucose 154 H POC Glucose 140 H 171 H Lactic Acid Calcium Ferritin AST Alkaline Phosphatase Magnesium Lactate Dehydrogenase Total Creatine Kinase CK-MB (CK-2) C-Reactive Protein Total Protein Albumin Troponin T HDL Cholesterol Arterial Blood Glucose Urine WBC (Auto) Urine Creatinine Urine Total Protein Phenytoin Coronavirus (PCR) Crossmatch 06/16/20 06/16/20 06/16/20 10:46 12:33 17:54 WBC RBC Hgb Hct MCHC RDW Lymph % (Auto) [place] % (Auto) Eos % (Auto) Lymph # [place] # Lymph # (Auto) [place] # (Auto) Eos # (Auto) Seg Neutrophils % Seg Neuts % (Manual) Lymphocytes % (Manual) Seg Neutrophils # Seg Neutrophils # Man Lymphocytes # (Manual) Monocytes % (Manual) Eosinophils % (Manual) Monocytes # (Manual) Eosinophils # (Manual) D-Dimer Heparin Anti-Xa Level 0.12 L ABG pH POC ABG pCO2 POC ABG pO2 ABG pO2 ABG HCO3 ABG O2 Saturation ABG Base Excess ABG Hemoglobin ABG Oxyhemoglobin VBG pH ABG Sodium ABG Potassium ABG Glucose Oxyhemoglobin Sodium Potassium Chloride Carbon Dioxide BUN Creatinine Glucose POC Glucose 166 H 151 H Lactic Acid Calcium Ferritin AST Alkaline Phosphatase Magnesium Lactate Dehydrogenase Total Creatine Kinase CK-MB (CK-2) C-Reactive Protein Total Protein Albumin Troponin T HDL Cholesterol Arterial Blood Glucose Urine WBC (Auto) Urine Creatinine Urine Total Protein Phenytoin Coronavirus (PCR) Crossmatch 06/16/20 06/17/20 06/17/20 18:47 00:00 02:19 WBC RBC Hgb Hct MCHC RDW Lymph % (Auto) [place] % (Auto) Eos % (Auto) Lymph # [place] # Lymph # (Auto) [place] # (Auto) Eos # (Auto) Seg Neutrophils % Seg Neuts % (Manual) Lymphocytes % (Manual) Seg Neutrophils # Seg Neutrophils # Man Lymphocytes # (Manual) Monocytes % (Manual) Eosinophils % (Manual) Monocytes # (Manual) Eosinophils # (Manual) D-Dimer Heparin Anti-Xa Level 0.73 H 0.77 H ABG pH POC ABG pCO2 POC ABG pO2 ABG pO2 ABG HCO3 ABG O2 Saturation ABG Base Excess ABG Hemoglobin ABG Oxyhemoglobin VBG pH ABG Sodium ABG Potassium ABG Glucose Oxyhemoglobin Sodium Potassium Chloride Carbon Dioxide BUN Creatinine Glucose POC Glucose 139 H Lactic Acid Calcium Ferritin AST Alkaline Phosphatase Magnesium Lactate Dehydrogenase Total Creatine Kinase CK-MB (CK-2) C-Reactive Protein Total Protein Albumin Troponin T HDL Cholesterol Arterial Blood Glucose Urine WBC (Auto) Urine Creatinine Urine Total Protein Phenytoin Coronavirus (PCR) Crossmatch 06/17/20 06/17/20 06/17/20 06:07 11:42 16:43 WBC RBC Hgb Hct MCHC RDW Lymph % (Auto) [place] % (Auto) Eos % (Auto) Lymph # [place] # Lymph # (Auto) [place] # (Auto) Eos # (Auto) Seg Neutrophils % Seg Neuts % (Manual) Lymphocytes % (Manual) Seg Neutrophils # Seg Neutrophils # Man Lymphocytes # (Manual) Monocytes % (Manual) Eosinophils % (Manual) Monocytes # (Manual) Eosinophils # (Manual) D-Dimer Heparin Anti-Xa Level 0.73 H ABG pH POC ABG pCO2 POC ABG pO2 ABG pO2 ABG HCO3 ABG O2 Saturation ABG Base Excess ABG Hemoglobin ABG Oxyhemoglobin VBG pH ABG Sodium ABG Potassium ABG Glucose Oxyhemoglobin Sodium Potassium Chloride Carbon Dioxide BUN Creatinine Glucose POC Glucose 169 H 169 H Lactic Acid Calcium Ferritin AST Alkaline Phosphatase Magnesium Lactate Dehydrogenase Total Creatine Kinase CK-MB (CK-2) C-Reactive Protein Total Protein Albumin Troponin T HDL Cholesterol Arterial Blood Glucose Urine WBC (Auto) Urine Creatinine Urine Total Protein Phenytoin Coronavirus (PCR) Crossmatch 06/17/20 06/17/20 06/17/20 18:18 23:08 23:16 WBC RBC Hgb Hct MCHC RDW Lymph % (Auto) [place] % (Auto) Eos % (Auto) Lymph # [place] # Lymph # (Auto) [place] # (Auto) Eos # (Auto) Seg Neutrophils % Seg Neuts % (Manual) Lymphocytes % (Manual) Seg Neutrophils # Seg Neutrophils # Man Lymphocytes # (Manual) Monocytes % (Manual) Eosinophils % (Manual) Monocytes # (Manual) Eosinophils # (Manual) D-Dimer Heparin Anti-Xa Level 0.71 H ABG pH POC ABG pCO2 POC ABG pO2 ABG pO2 ABG HCO3 ABG O2 Saturation ABG Base Excess ABG Hemoglobin ABG Oxyhemoglobin VBG pH ABG Sodium ABG Potassium ABG Glucose Oxyhemoglobin Sodium Potassium Chloride Carbon Dioxide BUN Creatinine Glucose POC Glucose 159 H 134 H Lactic Acid Calcium Ferritin AST Alkaline Phosphatase Magnesium Lactate Dehydrogenase Total Creatine Kinase CK-MB (CK-2) C-Reactive Protein Total Protein Albumin Troponin T HDL Cholesterol Arterial Blood Glucose Urine WBC (Auto) Urine Creatinine Urine Total Protein Phenytoin Coronavirus (PCR) Crossmatch 06/18/20 06/18/20 06/18/20 04:42 05:52 11:50 WBC RBC Hgb Hct MCHC RDW Lymph % (Auto) [place] % (Auto) Eos % (Auto) Lymph # [place] # Lymph # (Auto) [place] # (Auto) Eos # (Auto) Seg Neutrophils % Seg Neuts % (Manual) Lymphocytes % (Manual) Seg Neutrophils # Seg Neutrophils # Man Lymphocytes # (Manual) Monocytes % (Manual) Eosinophils % (Manual) Monocytes # (Manual) Eosinophils # (Manual) D-Dimer Heparin Anti-Xa Level ABG pH POC ABG pCO2 POC ABG pO2 ABG pO2 ABG HCO3 ABG O2 Saturation ABG Base Excess ABG Hemoglobin ABG Oxyhemoglobin VBG pH ABG Sodium ABG Potassium ABG Glucose Oxyhemoglobin Sodium Potassium Chloride Carbon Dioxide BUN 44 H Creatinine Glucose 115 H POC Glucose 171 H 167 H Lactic Acid Calcium Ferritin AST Alkaline Phosphatase Magnesium Lactate Dehydrogenase Total Creatine Kinase CK-MB (CK-2) C-Reactive Protein Total Protein Albumin Troponin T HDL Cholesterol Arterial Blood Glucose Urine WBC (Auto) Urine Creatinine Urine Total Protein Phenytoin Coronavirus (PCR) Crossmatch 06/18/20 06/19/20 06/19/20 23:46 05:48 07:52 WBC RBC Hgb Hct MCHC RDW Lymph % (Auto) [place] % (Auto) Eos % (Auto) Lymph # [place] # Lymph # (Auto) [place] # (Auto) Eos # (Auto) Seg Neutrophils % Seg Neuts % (Manual) Lymphocytes % (Manual) Seg Neutrophils # Seg Neutrophils # Man Lymphocytes # (Manual) Monocytes % (Manual) Eosinophils % (Manual) Monocytes # (Manual) Eosinophils # (Manual) D-Dimer Heparin Anti-Xa Level ABG pH POC ABG pCO2 POC ABG pO2 ABG pO2 ABG HCO3 ABG O2 Saturation ABG Base Excess ABG Hemoglobin ABG Oxyhemoglobin VBG pH ABG Sodium ABG Potassium ABG Glucose Oxyhemoglobin Sodium Potassium Chloride Carbon Dioxide BUN Creatinine Glucose POC Glucose 130 H 207 H 175 H Lactic Acid Calcium Ferritin AST Alkaline Phosphatase Magnesium Lactate Dehydrogenase Total Creatine Kinase CK-MB (CK-2) C-Reactive Protein Total Protein Albumin Troponin T HDL Cholesterol Arterial Blood Glucose Urine WBC (Auto) Urine Creatinine Urine Total Protein Phenytoin Coronavirus (PCR) Crossmatch 06/19/20 06/19/20 06/20/20 11:42 22:54 05:17 WBC RBC Hgb Hct MCHC RDW Lymph % (Auto) [place] % (Auto) Eos % (Auto) Lymph # [place] # Lymph # (Auto) [place] # (Auto) Eos # (Auto) Seg Neutrophils % Seg Neuts % (Manual) Lymphocytes % (Manual) Seg Neutrophils # Seg Neutrophils # Man Lymphocytes # (Manual) Monocytes % (Manual) Eosinophils % (Manual) Monocytes # (Manual) Eosinophils # (Manual) D-Dimer Heparin Anti-Xa Level ABG pH POC ABG pCO2 POC ABG pO2 ABG pO2 ABG HCO3 ABG O2 Saturation ABG Base Excess ABG Hemoglobin ABG Oxyhemoglobin VBG pH ABG Sodium ABG Potassium ABG Glucose Oxyhemoglobin Sodium Potassium Chloride Carbon Dioxide BUN Creatinine Glucose POC Glucose 166 H 135 H 218 H Lactic Acid Calcium Ferritin AST Alkaline Phosphatase Magnesium Lactate Dehydrogenase Total Creatine Kinase CK-MB (CK-2) C-Reactive Protein Total Protein Albumin Troponin T HDL Cholesterol Arterial Blood Glucose Urine WBC (Auto) Urine Creatinine Urine Total Protein Phenytoin Coronavirus (PCR) Crossmatch 06/20/20 06/20/20 06/20/20 12:04 16:25 16:35 WBC RBC Hgb Hct MCHC RDW Lymph % (Auto) [place] % (Auto) Eos % (Auto) Lymph # [place] # Lymph # (Auto) [place] # (Auto) Eos # (Auto) Seg Neutrophils % Seg Neuts % (Manual) Lymphocytes % (Manual) Seg Neutrophils # Seg Neutrophils # Man Lymphocytes # (Manual) Monocytes % (Manual) Eosinophils % (Manual) Monocytes # (Manual) Eosinophils # (Manual) D-Dimer Heparin Anti-Xa Level ABG pH POC ABG pCO2 POC ABG pO2 ABG pO2 59.6 L ABG HCO3 28.7 H ABG O2 Saturation 93.5 L ABG Base Excess 3.4 H ABG Hemoglobin 7.2 L ABG Oxyhemoglobin VBG pH ABG Sodium ABG Potassium ABG Glucose Oxyhemoglobin 91.3 L Sodium Potassium Chloride Carbon Dioxide BUN Creatinine Glucose POC Glucose 194 H 137 H Lactic Acid Calcium Ferritin AST Alkaline Phosphatase Magnesium Lactate Dehydrogenase Total Creatine Kinase CK-MB (CK-2) C-Reactive Protein Total Protein Albumin Troponin T HDL Cholesterol Arterial Blood Glucose Urine WBC (Auto) Urine Creatinine Urine Total Protein Phenytoin Coronavirus (PCR) Crossmatch 06/20/20 06/21/20 06/21/20 23:59 06:25 12:01 WBC RBC Hgb Hct MCHC RDW Lymph % (Auto) [place] % (Auto) Eos % (Auto) Lymph # [place] # Lymph # (Auto) [place] # (Auto) Eos # (Auto) Seg Neutrophils % Seg Neuts % (Manual) Lymphocytes % (Manual) Seg Neutrophils # Seg Neutrophils # Man Lymphocytes # (Manual) Monocytes % (Manual) Eosinophils % (Manual) Monocytes # (Manual) Eosinophils # (Manual) D-Dimer Heparin Anti-Xa Level ABG pH POC ABG pCO2 POC ABG pO2 ABG pO2 ABG HCO3 ABG O2 Saturation ABG Base Excess ABG Hemoglobin ABG Oxyhemoglobin VBG pH ABG Sodium ABG Potassium ABG Glucose Oxyhemoglobin Sodium Potassium Chloride Carbon Dioxide BUN Creatinine Glucose POC Glucose 156 H 177 H 195 H Lactic Acid Calcium Ferritin AST Alkaline Phosphatase Magnesium Lactate Dehydrogenase Total Creatine Kinase CK-MB (CK-2) C-Reactive Protein Total Protein Albumin Troponin T HDL Cholesterol Arterial Blood Glucose Urine WBC (Auto) Urine Creatinine Urine Total Protein Phenytoin Coronavirus (PCR) Crossmatch 06/21/20 06/21/20 06/22/20 17:04 21:51 05:06 WBC RBC Hgb Hct MCHC RDW Lymph % (Auto) [place] % (Auto) Eos % (Auto) Lymph # [place] # Lymph # (Auto) [place] # (Auto) Eos # (Auto) Seg Neutrophils % Seg Neuts % (Manual) Lymphocytes % (Manual) Seg Neutrophils # Seg Neutrophils # Man Lymphocytes # (Manual) Monocytes % (Manual) Eosinophils % (Manual) Monocytes # (Manual) Eosinophils # (Manual) D-Dimer Heparin Anti-Xa Level ABG pH POC ABG pCO2 POC ABG pO2 ABG pO2 ABG HCO3 ABG O2 Saturation ABG Base Excess ABG Hemoglobin ABG Oxyhemoglobin VBG pH ABG Sodium ABG Potassium ABG Glucose Oxyhemoglobin Sodium Potassium Chloride Carbon Dioxide BUN Creatinine Glucose POC Glucose 156 H 154 H 167 H Lactic Acid Calcium Ferritin AST Alkaline Phosphatase Magnesium Lactate Dehydrogenase Total Creatine Kinase CK-MB (CK-2) C-Reactive Protein Total Protein Albumin Troponin T HDL Cholesterol Arterial Blood Glucose Urine WBC (Auto) Urine Creatinine Urine Total Protein Phenytoin Coronavirus (PCR) Crossmatch 06/22/20 06/22/20 06/22/20 11:20 15:27 16:58 WBC RBC Hgb Hct MCHC RDW Lymph % (Auto) [place] % (Auto) Eos % (Auto) Lymph # [place] # Lymph # (Auto) [place] # (Auto) Eos # (Auto) Seg Neutrophils % Seg Neuts % (Manual) Lymphocytes % (Manual) Seg Neutrophils # Seg Neutrophils # Man Lymphocytes # (Manual) Monocytes % (Manual) Eosinophils % (Manual) Monocytes # (Manual) Eosinophils # (Manual) D-Dimer Heparin Anti-Xa Level ABG pH 7.206 L POC ABG pCO2 79.9 H POC ABG pO2 ABG pO2 ABG HCO3 ABG O2 Saturation ABG Base Excess ABG Hemoglobin 8.3 L ABG Oxyhemoglobin VBG pH ABG Sodium ABG Potassium ABG Glucose Oxyhemoglobin Sodium Potassium Chloride Carbon Dioxide BUN Creatinine Glucose POC Glucose 181 H 230 H Lactic Acid Calcium Ferritin AST Alkaline Phosphatase Magnesium Lactate Dehydrogenase Total Creatine Kinase CK-MB (CK-2) C-Reactive Protein Total Protein Albumin Troponin T HDL Cholesterol Arterial Blood Glucose Urine WBC (Auto) Urine Creatinine Urine Total Protein Phenytoin Coronavirus (PCR) Crossmatch 06/22/20 06/23/20 06/23/20 22:26 05:49 05:49 WBC RBC 2.58 L Hgb 7.4 L Hct 23.2 L MCHC RDW 17.0 H Lymph % (Auto) [place] % (Auto) 11.2 H Eos % (Auto) Lymph # 1.0 L [place] # Lymph # (Auto) [place] # (Auto) Eos # (Auto) Seg Neutrophils % Seg Neuts % (Manual) Lymphocytes % (Manual) Seg Neutrophils # Seg Neutrophils # Man Lymphocytes # (Manual) Monocytes % (Manual) Eosinophils % (Manual) Monocytes # (Manual) Eosinophils # (Manual) D-Dimer Heparin Anti-Xa Level ABG pH POC ABG pCO2 POC ABG pO2 ABG pO2 ABG HCO3 ABG O2 Saturation ABG Base Excess ABG Hemoglobin ABG Oxyhemoglobin VBG pH ABG Sodium ABG Potassium ABG Glucose Oxyhemoglobin Sodium Potassium Chloride Carbon Dioxide BUN 68 H Creatinine 2.4 H Glucose 198 H POC Glucose 195 H Lactic Acid Calcium Ferritin AST Alkaline Phosphatase Magnesium Lactate Dehydrogenase Total Creatine Kinase CK-MB (CK-2) C-Reactive Protein Total Protein Albumin Troponin T HDL Cholesterol Arterial Blood Glucose Urine WBC (Auto) Urine Creatinine Urine Total Protein Phenytoin Coronavirus (PCR) Crossmatch 06/23/20 06/23/20 06/23/20 05:50 12:29 12:34 WBC RBC Hgb Hct MCHC RDW Lymph % (Auto) [place] % (Auto) Eos % (Auto) Lymph # [place] # Lymph # (Auto) [place] # (Auto) Eos # (Auto) Seg Neutrophils % Seg Neuts % (Manual) Lymphocytes % (Manual) Seg Neutrophils # Seg Neutrophils # Man Lymphocytes # (Manual) Monocytes % (Manual) Eosinophils % (Manual) Monocytes # (Manual) Eosinophils # (Manual) D-Dimer Heparin Anti-Xa Level ABG pH POC ABG pCO2 54.7 H POC ABG pO2 68.8 L ABG pO2 ABG HCO3 ABG O2 Saturation ABG Base Excess ABG Hemoglobin 9.8 L ABG Oxyhemoglobin 92.6 L VBG pH ABG Sodium ABG Potassium ABG Glucose Oxyhemoglobin Sodium Potassium Chloride Carbon Dioxide BUN Creatinine Glucose POC Glucose 202 H 218 H Lactic Acid Calcium Ferritin AST Alkaline Phosphatase Magnesium Lactate Dehydrogenase Total Creatine Kinase CK-MB (CK-2) C-Reactive Protein Total Protein Albumin Troponin T HDL Cholesterol Arterial Blood Glucose Urine WBC (Auto) Urine Creatinine Urine Total Protein Phenytoin Coronavirus (PCR) Crossmatch 06/23/20 06/23/20 06/24/20 16:02 22:22 01:06 WBC RBC Hgb Hct MCHC RDW Lymph % (Auto) [place] % (Auto) Eos % (Auto) Lymph # [place] # Lymph # (Auto) [place] # (Auto) Eos # (Auto) Seg Neutrophils % Seg Neuts % (Manual) Lymphocytes % (Manual) Seg Neutrophils # Seg Neutrophils # Man Lymphocytes # (Manual) Monocytes % (Manual) Eosinophils % (Manual) Monocytes # (Manual) Eosinophils # (Manual) D-Dimer Heparin Anti-Xa Level ABG pH POC ABG pCO2 POC ABG pO2 ABG pO2 ABG HCO3 ABG O2 Saturation ABG Base Excess ABG Hemoglobin ABG Oxyhemoglobin VBG pH ABG Sodium ABG Potassium ABG Glucose Oxyhemoglobin Sodium Potassium Chloride Carbon Dioxide BUN Creatinine Glucose POC Glucose 190 H 166 H 171 H Lactic Acid Calcium Ferritin AST Alkaline Phosphatase Magnesium Lactate Dehydrogenase Total Creatine Kinase CK-MB (CK-2) C-Reactive Protein Total Protein Albumin Troponin T HDL Cholesterol Arterial Blood Glucose Urine WBC (Auto) Urine Creatinine Urine Total Protein Phenytoin Coronavirus (PCR) Crossmatch 06/24/20 06/24/20 06/24/20 04:48 05:35 11:48 WBC RBC Hgb Hct MCHC RDW Lymph % (Auto) [place] % (Auto) Eos % (Auto) Lymph # [place] # Lymph # (Auto) [place] # (Auto) Eos # (Auto) Seg Neutrophils % Seg Neuts % (Manual) Lymphocytes % (Manual) Seg Neutrophils # Seg Neutrophils # Man Lymphocytes # (Manual) Monocytes % (Manual) Eosinophils % (Manual) Monocytes # (Manual) Eosinophils # (Manual) D-Dimer Heparin Anti-Xa Level ABG pH POC ABG pCO2 POC ABG pO2 ABG pO2 ABG HCO3 ABG O2 Saturation ABG Base Excess ABG Hemoglobin ABG Oxyhemoglobin VBG pH ABG Sodium ABG Potassium ABG Glucose Oxyhemoglobin Sodium Potassium Chloride Carbon Dioxide BUN 75 H Creatinine 2.6 H Glucose 179 H POC Glucose 172 H 153 H Lactic Acid Calcium Ferritin AST Alkaline Phosphatase Magnesium Lactate Dehydrogenase Total Creatine Kinase CK-MB (CK-2) C-Reactive Protein Total Protein Albumin Troponin T HDL Cholesterol Arterial Blood Glucose Urine WBC (Auto) Urine Creatinine Urine Total Protein Phenytoin Coronavirus (PCR) Crossmatch 06/24/20 06/24/20 06/25/20 16:38 21:52 12:00 WBC RBC Hgb Hct MCHC RDW Lymph % (Auto) [place] % (Auto) Eos % (Auto) Lymph # [place] # Lymph # (Auto) [place] # (Auto) Eos # (Auto) Seg Neutrophils % Seg Neuts % (Manual) Lymphocytes % (Manual) Seg Neutrophils # Seg Neutrophils # Man Lymphocytes # (Manual) Monocytes % (Manual) Eosinophils % (Manual) Monocytes # (Manual) Eosinophils # (Manual) D-Dimer Heparin Anti-Xa Level ABG pH POC ABG pCO2 POC ABG pO2 ABG pO2 ABG HCO3 ABG O2 Saturation ABG Base Excess ABG Hemoglobin ABG Oxyhemoglobin VBG pH ABG Sodium ABG Potassium ABG Glucose Oxyhemoglobin Sodium Potassium Chloride Carbon Dioxide BUN Creatinine Glucose POC Glucose 123 H 115 H 203 H Lactic Acid Calcium Ferritin AST Alkaline Phosphatase Magnesium Lactate Dehydrogenase Total Creatine Kinase CK-MB (CK-2) C-Reactive Protein Total Protein Albumin Troponin T HDL Cholesterol Arterial Blood Glucose Urine WBC (Auto) Urine Creatinine Urine Total Protein Phenytoin Coronavirus (PCR) Crossmatch 06/25/20 06/25/20 06/25/20 15:43 16:37 23:02 WBC RBC Hgb Hct MCHC RDW Lymph % (Auto) [place] % (Auto) Eos % (Auto) Lymph # [place] # Lymph # (Auto) [place] # (Auto) Eos # (Auto) Seg Neutrophils % Seg Neuts % (Manual) Lymphocytes % (Manual) Seg Neutrophils # Seg Neutrophils # Man Lymphocytes # (Manual) Monocytes % (Manual) Eosinophils % (Manual) Monocytes # (Manual) Eosinophils # (Manual) D-Dimer Heparin Anti-Xa Level ABG pH POC ABG pCO2 POC ABG pO2 ABG pO2 ABG HCO3 ABG O2 Saturation ABG Base Excess ABG Hemoglobin ABG Oxyhemoglobin VBG pH ABG Sodium ABG Potassium ABG Glucose Oxyhemoglobin Sodium Potassium Chloride Carbon Dioxide BUN 71 H Creatinine 1.8 H Glucose 170 H POC Glucose 191 H 126 H Lactic Acid Calcium 8.2 L Ferritin AST Alkaline Phosphatase Magnesium Lactate Dehydrogenase Total Creatine Kinase CK-MB (CK-2) C-Reactive Protein Total Protein Albumin Troponin T HDL Cholesterol Arterial Blood Glucose Urine WBC (Auto) Urine Creatinine Urine Total Protein Phenytoin Coronavirus (PCR) Crossmatch 06/26/20 06/26/20 06/26/20 06:34 06:34 09:27 WBC RBC 2.41 L Hgb 6.9 L Hct 21.5 L MCHC RDW 16.7 H Lymph % (Auto) 10.9 L [place] % (Auto) 9.6 H Eos % (Auto) Lymph # 0.7 L [place] # Lymph # (Auto) [place] # (Auto) Eos # (Auto) Seg Neutrophils % 75.4 H Seg Neuts % (Manual) Lymphocytes % (Manual) Seg Neutrophils # Seg Neutrophils # Man Lymphocytes # (Manual) Monocytes % (Manual) Eosinophils % (Manual) Monocytes # (Manual) Eosinophils # (Manual) D-Dimer Heparin Anti-Xa Level ABG pH POC ABG pCO2 POC ABG pO2 ABG pO2 ABG HCO3 ABG O2 Saturation ABG Base Excess ABG Hemoglobin ABG Oxyhemoglobin VBG pH ABG Sodium ABG Potassium ABG Glucose Oxyhemoglobin Sodium Potassium Chloride Carbon Dioxide BUN 77 H Creatinine 1.9 H Glucose 190 H POC Glucose Lactic Acid Calcium Ferritin AST Alkaline Phosphatase Magnesium Lactate Dehydrogenase Total Creatine Kinase CK-MB (CK-2) C-Reactive Protein Total Protein Albumin Troponin T HDL Cholesterol Arterial Blood Glucose Urine WBC (Auto) Urine Creatinine Urine Total Protein Phenytoin Coronavirus (PCR) Crossmatch See Detail 06/26/20 06/26/20 06/26/20 12:15 16:28 17:28 WBC RBC Hgb Hct MCHC RDW Lymph % (Auto) [place] % (Auto) Eos % (Auto) Lymph # [place] # Lymph # (Auto) [place] # (Auto) Eos # (Auto) Seg Neutrophils % Seg Neuts % (Manual) Lymphocytes % (Manual) Seg Neutrophils # Seg Neutrophils # Man Lymphocytes # (Manual) Monocytes % (Manual) Eosinophils % (Manual) Monocytes # (Manual) Eosinophils # (Manual) D-Dimer Heparin Anti-Xa Level ABG pH POC ABG pCO2 POC ABG pO2 ABG pO2 ABG HCO3 ABG O2 Saturation ABG Base Excess ABG Hemoglobin ABG Oxyhemoglobin VBG pH ABG Sodium ABG Potassium ABG Glucose Oxyhemoglobin Sodium Potassium Chloride Carbon Dioxide BUN Creatinine Glucose POC Glucose 187 H 149 H 189 H Lactic Acid Calcium Ferritin AST Alkaline Phosphatase Magnesium Lactate Dehydrogenase Total Creatine Kinase CK-MB (CK-2) C-Reactive Protein Total Protein Albumin Troponin T HDL Cholesterol Arterial Blood Glucose Urine WBC (Auto) Urine Creatinine Urine Total Protein Phenytoin Coronavirus (PCR) Crossmatch 06/26/20 06/26/20 06/26/20 18:30 18:30 18:30 WBC RBC 2.87 L Hgb 8.2 L Hct 25.9 L MCHC RDW 17.8 H Lymph % (Auto) [place] % (Auto) Eos % (Auto) Lymph # [place] # Lymph # (Auto) [place] # (Auto) Eos # (Auto) Seg Neutrophils % Seg Neuts % (Manual) 83.0 H Lymphocytes % (Manual) 8.0 L Seg Neutrophils # Seg Neutrophils # Man Lymphocytes # (Manual) 0.6 L Monocytes % (Manual) Eosinophils % (Manual) Monocytes # (Manual) Eosinophils # (Manual) D-Dimer Heparin Anti-Xa Level ABG pH POC ABG pCO2 POC ABG pO2 ABG pO2 ABG HCO3 ABG O2 Saturation ABG Base Excess ABG Hemoglobin ABG Oxyhemoglobin VBG pH ABG Sodium ABG Potassium ABG Glucose Oxyhemoglobin Sodium Potassium Chloride Carbon Dioxide BUN 80 H Creatinine 2.1 H Glucose 260 H POC Glucose Lactic Acid 4.30 H* Calcium 8.3 L Ferritin AST Alkaline Phosphatase Magnesium Lactate Dehydrogenase Total Creatine Kinase CK-MB (CK-2) C-Reactive Protein Total Protein Albumin Troponin T HDL Cholesterol Arterial Blood Glucose Urine WBC (Auto) Urine Creatinine Urine Total Protein Phenytoin Coronavirus (PCR) Crossmatch 06/26/20 06/27/20 06/27/20 18:50 01:00 04:29 WBC RBC Hgb Hct MCHC RDW Lymph % (Auto) [place] % (Auto) Eos % (Auto) Lymph # [place] # Lymph # (Auto) [place] # (Auto) Eos # (Auto) Seg Neutrophils % Seg Neuts % (Manual) Lymphocytes % (Manual) Seg Neutrophils # Seg Neutrophils # Man Lymphocytes # (Manual) Monocytes % (Manual) Eosinophils % (Manual) Monocytes # (Manual) Eosinophils # (Manual) D-Dimer Heparin Anti-Xa Level ABG pH 7.296 L POC ABG pCO2 POC ABG pO2 ABG pO2 116.5 H 200.5 H ABG HCO3 28.4 H ABG O2 Saturation 99.3 H ABG Base Excess 3.7 H ABG Hemoglobin 5.6 L ABG Oxyhemoglobin VBG pH ABG Sodium ABG Potassium ABG Glucose Oxyhemoglobin Sodium Potassium Chloride Carbon Dioxide BUN Creatinine Glucose POC Glucose 123 H Lactic Acid Calcium Ferritin AST Alkaline Phosphatase Magnesium Lactate Dehydrogenase Total Creatine Kinase CK-MB (CK-2) C-Reactive Protein Total Protein Albumin Troponin T HDL Cholesterol Arterial Blood Glucose Urine WBC (Auto) Urine Creatinine Urine Total Protein Phenytoin Coronavirus (PCR) Crossmatch 06/27/20 06/27/20 06/27/20 05:00 05:00 05:00 WBC RBC 2.75 L Hgb 7.9 L Hct 24.3 L MCHC RDW 17.1 H Lymph % (Auto) 8.5 L [place] % (Auto) 12.6 H Eos % (Auto) Lymph # 0.7 L [place] # 1.0 H Lymph # (Auto) [place] # (Auto) Eos # (Auto) Seg Neutrophils % 77.5 H Seg Neuts % (Manual) Lymphocytes % (Manual) Seg Neutrophils # Seg Neutrophils # Man Lymphocytes # (Manual) Monocytes % (Manual) Eosinophils % (Manual) Monocytes # (Manual) Eosinophils # (Manual) D-Dimer Heparin Anti-Xa Level ABG pH POC ABG pCO2 POC ABG pO2 ABG pO2 ABG HCO3 ABG O2 Saturation ABG Base Excess ABG Hemoglobin ABG Oxyhemoglobin VBG pH ABG Sodium ABG Potassium ABG Glucose Oxyhemoglobin Sodium Potassium Chloride Carbon Dioxide BUN 80 H Creatinine 2.0 H Glucose 129 H POC Glucose Lactic Acid 0.60 L Calcium 7.9 L Ferritin AST Alkaline Phosphatase Magnesium Lactate Dehydrogenase Total Creatine Kinase CK-MB (CK-2) C-Reactive Protein Total Protein Albumin Troponin T HDL Cholesterol Arterial Blood Glucose Urine WBC (Auto) Urine Creatinine Urine Total Protein Phenytoin Coronavirus (PCR) Crossmatch 06/27/20 06/27/20 06/27/20 05:23 13:46 17:25 WBC RBC Hgb Hct MCHC RDW Lymph % (Auto) [place] % (Auto) Eos % (Auto) Lymph # [place] # Lymph # (Auto) [place] # (Auto) Eos # (Auto) Seg Neutrophils % Seg Neuts % (Manual) Lymphocytes % (Manual) Seg Neutrophils # Seg Neutrophils # Man Lymphocytes # (Manual) Monocytes % (Manual) Eosinophils % (Manual) Monocytes # (Manual) Eosinophils # (Manual) D-Dimer Heparin Anti-Xa Level ABG pH POC ABG pCO2 POC ABG pO2 ABG pO2 ABG HCO3 ABG O2 Saturation ABG Base Excess ABG Hemoglobin ABG Oxyhemoglobin VBG pH ABG Sodium ABG Potassium ABG Glucose Oxyhemoglobin Sodium Potassium Chloride Carbon Dioxide BUN Creatinine Glucose POC Glucose 109 H 158 H 162 H Lactic Acid Calcium Ferritin AST Alkaline Phosphatase Magnesium Lactate Dehydrogenase Total Creatine Kinase CK-MB (CK-2) C-Reactive Protein Total Protein Albumin Troponin T HDL Cholesterol Arterial Blood Glucose Urine WBC (Auto) Urine Creatinine Urine Total Protein Phenytoin Coronavirus (PCR) Crossmatch 06/27/20 06/27/20 06/28/20 18:43 23:46 04:05 WBC RBC Hgb 7.7 L Hct 22.1 L MCHC RDW Lymph % (Auto) [place] % (Auto) Eos % (Auto) Lymph # [place] # Lymph # (Auto) [place] # (Auto) Eos # (Auto) Seg Neutrophils % Seg Neuts % (Manual) Lymphocytes % (Manual) Seg Neutrophils # Seg Neutrophils # Man Lymphocytes # (Manual) Monocytes % (Manual) Eosinophils % (Manual) Monocytes # (Manual) Eosinophils # (Manual) D-Dimer Heparin Anti-Xa Level ABG pH POC ABG pCO2 POC ABG pO2 ABG pO2 102.7 H ABG HCO3 28.7 H ABG O2 Saturation ABG Base Excess 3.7 H ABG Hemoglobin ABG Oxyhemoglobin VBG pH ABG Sodium ABG Potassium ABG Glucose Oxyhemoglobin Sodium Potassium Chloride Carbon Dioxide BUN Creatinine Glucose POC Glucose 142 H Lactic Acid Calcium Ferritin AST Alkaline Phosphatase Magnesium Lactate Dehydrogenase Total Creatine Kinase CK-MB (CK-2) C-Reactive Protein Total Protein Albumin Troponin T HDL Cholesterol Arterial Blood Glucose Urine WBC (Auto) Urine Creatinine Urine Total Protein Phenytoin Coronavirus (PCR) Crossmatch 06/28/20 06/28/20 06/28/20 09:47 09:47 12:02 WBC RBC 2.53 L Hgb 7.4 L Hct 22.2 L MCHC RDW 16.8 H Lymph % (Auto) [place] % (Auto) 13.5 H Eos % (Auto) Lymph # 1.1 L [place] # 1.0 H Lymph # (Auto) [place] # (Auto) Eos # (Auto) Seg Neutrophils % Seg Neuts % (Manual) Lymphocytes % (Manual) Seg Neutrophils # Seg Neutrophils # Man Lymphocytes # (Manual) Monocytes % (Manual) Eosinophils % (Manual) Monocytes # (Manual) Eosinophils # (Manual) D-Dimer Heparin Anti-Xa Level ABG pH POC ABG pCO2 POC ABG pO2 ABG pO2 ABG HCO3 ABG O2 Saturation ABG Base Excess ABG Hemoglobin ABG Oxyhemoglobin VBG pH ABG Sodium ABG Potassium ABG Glucose Oxyhemoglobin Sodium Potassium Chloride Carbon Dioxide BUN 80 H Creatinine 1.5 H Glucose 139 H POC Glucose 169 H Lactic Acid Calcium 7.9 L Ferritin AST Alkaline Phosphatase Magnesium Lactate Dehydrogenase Total Creatine Kinase CK-MB (CK-2) C-Reactive Protein Total Protein 5.0 L Albumin 2.1 L Troponin T HDL Cholesterol Arterial Blood Glucose Urine WBC (Auto) Urine Creatinine Urine Total Protein Phenytoin Coronavirus (PCR) Crossmatch 06/28/20 06/28/20 06/28/20 12:30 12:30 17:24 WBC RBC 2.38 L Hgb 7.3 L Hct 20.9 L MCHC 35 H RDW 16.7 H Lymph % (Auto) [place] % (Auto) Eos % (Auto) Lymph # [place] # Lymph # (Auto) [place] # (Auto) Eos # (Auto) Seg Neutrophils % Seg Neuts % (Manual) Lymphocytes % (Manual) Seg Neutrophils # Seg Neutrophils # Man Lymphocytes # (Manual) Monocytes % (Manual) Eosinophils % (Manual) Monocytes # (Manual) Eosinophils # (Manual) D-Dimer Heparin Anti-Xa Level ABG pH POC ABG pCO2 POC ABG pO2 ABG pO2 ABG HCO3 ABG O2 Saturation ABG Base Excess ABG Hemoglobin ABG Oxyhemoglobin VBG pH ABG Sodium ABG Potassium ABG Glucose Oxyhemoglobin Sodium Potassium Chloride Carbon Dioxide BUN 74 H Creatinine 1.5 H Glucose 143 H POC Glucose 173 H Lactic Acid Calcium 7.5 L Ferritin AST Alkaline Phosphatase Magnesium Lactate Dehydrogenase Total Creatine Kinase CK-MB (CK-2) C-Reactive Protein Total Protein Albumin Troponin T HDL Cholesterol Arterial Blood Glucose Urine WBC (Auto) Urine Creatinine Urine Total Protein Phenytoin Coronavirus (PCR) Crossmatch 06/29/20 06/29/20 06/29/20 00:02 03:54 04:38 WBC RBC 2.55 L Hgb 7.3 L Hct 22.4 L MCHC RDW 16.4 H Lymph % (Auto) 13.3 L [place] % (Auto) 12.5 H Eos % (Auto) Lymph # 1.1 L [place] # 1.0 H Lymph # (Auto) [place] # (Auto) Eos # (Auto) Seg Neutrophils % Seg Neuts % (Manual) Lymphocytes % (Manual) Seg Neutrophils # Seg Neutrophils # Man Lymphocytes # (Manual) Monocytes % (Manual) Eosinophils % (Manual) Monocytes # (Manual) Eosinophils # (Manual) D-Dimer Heparin Anti-Xa Level ABG pH POC ABG pCO2 POC ABG pO2 ABG pO2 ABG HCO3 26.9 H ABG O2 Saturation ABG Base Excess ABG Hemoglobin 6.9 L ABG Oxyhemoglobin VBG pH ABG Sodium ABG Potassium ABG Glucose Oxyhemoglobin Sodium Potassium Chloride Carbon Dioxide BUN Creatinine Glucose POC Glucose 142 H Lactic Acid Calcium Ferritin AST Alkaline Phosphatase Magnesium Lactate Dehydrogenase Total Creatine Kinase CK-MB (CK-2) C-Reactive Protein Total Protein Albumin Troponin T HDL Cholesterol Arterial Blood Glucose Urine WBC (Auto) Urine Creatinine Urine Total Protein Phenytoin Coronavirus (PCR) Crossmatch 06/29/20 06/29/2020 04:38 05:38 12:25 WBC RBC Hgb Hct MCHC RDW Lymph % (Auto) [place] % (Auto) Eos % (Auto) Lymph # [place] # Lymph # (Auto) [place] # (Auto) Eos # (Auto) Seg Neutrophils % Seg Neuts % (Manual) Lymphocytes % (Manual) Seg Neutrophils # Seg Neutrophils # Man Lymphocytes # (Manual) Monocytes % (Manual) Eosinophils % (Manual) Monocytes # (Manual) Eosinophils # (Manual) D-Dimer Heparin Anti-Xa Level ABG pH POC ABG pCO2 POC ABG pO2 ABG pO2 ABG HCO3 ABG O2 Saturation ABG Base Excess ABG Hemoglobin ABG Oxyhemoglobin VBG pH ABG Sodium ABG Potassium ABG Glucose Oxyhemoglobin Sodium Potassium Chloride 107.8 H Carbon Dioxide BUN 72 H Creatinine 1.4 H Glucose 127 H POC Glucose 122 H 138 H Lactic Acid Calcium 7.4 L Ferritin AST Alkaline Phosphatase Magnesium Lactate Dehydrogenase Total Creatine Kinase CK-MB (CK-2) C-Reactive Protein Total Protein Albumin Troponin T HDL Cholesterol Arterial Blood Glucose Urine WBC (Auto) Urine Creatinine Urine Total Protein Phenytoin Coronavirus (PCR) Crossmatch 06/29/20 06/29/20 06/29/20 14:45 14:45 14:45 WBC RBC Hgb Hct MCHC RDW Lymph % (Auto) [place] % (Auto) Eos % (Auto) Lymph # [place] # Lymph # (Auto) [place] # (Auto) Eos # (Auto) Seg Neutrophils % Seg Neuts % (Manual) Lymphocytes % (Manual) Seg Neutrophils # Seg Neutrophils # Man Lymphocytes # (Manual) Monocytes % (Manual) Eosinophils % (Manual) Monocytes # (Manual) Eosinophils # (Manual) D-Dimer 2310.15 H Heparin Anti-Xa Level ABG pH POC ABG pCO2 POC ABG pO2 ABG pO2 ABG HCO3 ABG O2 Saturation ABG Base Excess ABG Hemoglobin ABG Oxyhemoglobin VBG pH ABG Sodium ABG Potassium ABG Glucose Oxyhemoglobin Sodium Potassium Chloride Carbon Dioxide BUN Creatinine Glucose POC Glucose Lactic Acid Calcium Ferritin 223.6 H AST Alkaline Phosphatase Magnesium Lactate Dehydrogenase 367 H Total Creatine Kinase CK-MB (CK-2) C-Reactive Protein 3.60 H Total Protein Albumin Troponin T HDL Cholesterol Arterial Blood Glucose Urine WBC (Auto) Urine Creatinine Urine Total Protein Phenytoin Coronavirus (PCR) Crossmatch 06/29/20 06/29/20 06/29/20 18:27 23:35 Unknown WBC RBC Hgb Hct MCHC RDW Lymph % (Auto) [place] % (Auto) Eos % (Auto) Lymph # [place] # Lymph # (Auto) [place] # (Auto) Eos # (Auto) Seg Neutrophils % Seg Neuts % (Manual) Lymphocytes % (Manual) Seg Neutrophils # Seg Neutrophils # Man Lymphocytes # (Manual) Monocytes % (Manual) Eosinophils % (Manual) Monocytes # (Manual) Eosinophils # (Manual) D-Dimer Heparin Anti-Xa Level ABG pH POC ABG pCO2 POC ABG pO2 ABG pO2 ABG HCO3 ABG O2 Saturation ABG Base Excess ABG Hemoglobin ABG Oxyhemoglobin VBG pH ABG Sodium ABG Potassium ABG Glucose Oxyhemoglobin Sodium Potassium Chloride Carbon Dioxide BUN Creatinine Glucose POC Glucose 112 H 140 H Lactic Acid Calcium Ferritin AST Alkaline Phosphatase Magnesium Lactate Dehydrogenase Total Creatine Kinase CK-MB (CK-2) C-Reactive Protein Total Protein Albumin Troponin T HDL Cholesterol Arterial Blood Glucose Urine WBC (Auto) Urine Creatinine Urine Total Protein Phenytoin Coronavirus (PCR) Positive A Crossmatch 06/30/20 06/30/20 06/30/20 04:10 04:10 06:09 WBC RBC 2.44 L Hgb 7.1 L Hct 21.5 L MCHC RDW 16.6 H Lymph % (Auto) 11.0 L [place] % (Auto) 10.8 H Eos % (Auto) Lymph # 0.9 L [place] # 0.9 H Lymph # (Auto) [place] # (Auto) Eos # (Auto) Seg Neutrophils % 73.7 H Seg Neuts % (Manual) Lymphocytes % (Manual) Seg Neutrophils # Seg Neutrophils # Man Lymphocytes # (Manual) Monocytes % (Manual) Eosinophils % (Manual) Monocytes # (Manual) Eosinophils # (Manual) D-Dimer Heparin Anti-Xa Level ABG pH POC ABG pCO2 POC ABG pO2 ABG pO2 ABG HCO3 ABG O2 Saturation ABG Base Excess ABG Hemoglobin ABG Oxyhemoglobin VBG pH ABG Sodium ABG Potassium ABG Glucose Oxyhemoglobin Sodium Potassium Chloride 109.1 H Carbon Dioxide BUN 74 H Creatinine 1.3 H Glucose 191 H POC Glucose 187 H Lactic Acid Calcium 7.8 L Ferritin AST Alkaline Phosphatase Magnesium Lactate Dehydrogenase Total Creatine Kinase CK-MB (CK-2) C-Reactive Protein Total Protein Albumin Troponin T HDL Cholesterol Arterial Blood Glucose Urine WBC (Auto) Urine Creatinine Urine Total Protein Phenytoin Coronavirus (PCR) Crossmatch 06/30/20 06/30/20 06/30/20 12:04 17:43 23:41 WBC RBC Hgb Hct MCHC RDW Lymph % (Auto) [place] % (Auto) Eos % (Auto) Lymph # [place] # Lymph # (Auto) [place] # (Auto) Eos # (Auto) Seg Neutrophils % Seg Neuts % (Manual) Lymphocytes % (Manual) Seg Neutrophils # Seg Neutrophils # Man Lymphocytes # (Manual) Monocytes % (Manual) Eosinophils % (Manual) Monocytes # (Manual) Eosinophils # (Manual) D-Dimer Heparin Anti-Xa Level ABG pH POC ABG pCO2 POC ABG pO2 ABG pO2 ABG HCO3 ABG O2 Saturation ABG Base Excess ABG Hemoglobin ABG Oxyhemoglobin VBG pH ABG Sodium ABG Potassium ABG Glucose Oxyhemoglobin Sodium Potassium Chloride Carbon Dioxide BUN Creatinine Glucose POC Glucose 112 H 177 H 143 H Lactic Acid Calcium Ferritin AST Alkaline Phosphatase Magnesium Lactate Dehydrogenase Total Creatine Kinase CK-MB (CK-2) C-Reactive Protein Total Protein Albumin Troponin T HDL Cholesterol Arterial Blood Glucose Urine WBC (Auto) Urine Creatinine Urine Total Protein Phenytoin Coronavirus (PCR) Crossmatch 07/01/20 07/01/20 07/01/20 05:02 05:52 06:01 WBC 12.6 H RBC 2.95 L Hgb 8.2 L Hct 26.0 L MCHC RDW 16.9 H Lymph % (Auto) [place] % (Auto) Eos % (Auto) Lymph # [place] # Lymph # (Auto) [place] # (Auto) Eos # (Auto) Seg Neutrophils % Seg Neuts % (Manual) Lymphocytes % (Manual) Seg Neutrophils # Seg Neutrophils # Man 8.6 H Lymphocytes # (Manual) Monocytes % (Manual) Eosinophils % (Manual) 5.0 H Monocytes # (Manual) Eosinophils # (Manual) 0.6 H D-Dimer Heparin Anti-Xa Level ABG pH POC ABG pCO2 POC ABG pO2 ABG pO2 ABG HCO3 ABG O2 Saturation ABG Base Excess ABG Hemoglobin 8.2 L ABG Oxyhemoglobin VBG pH ABG Sodium ABG Potassium ABG Glucose Oxyhemoglobin Sodium Potassium Chloride Carbon Dioxide BUN Creatinine Glucose POC Glucose 129 H Lactic Acid Calcium Ferritin AST Alkaline Phosphatase Magnesium Lactate Dehydrogenase Total Creatine Kinase CK-MB (CK-2) C-Reactive Protein Total Protein Albumin Troponin T HDL Cholesterol Arterial Blood Glucose Urine WBC (Auto) Urine Creatinine Urine Total Protein Phenytoin Coronavirus (PCR) Crossmatch 07/01/20 07/01/20 07/01/20 06:01 06:01 06:08 WBC RBC Hgb Hct MCHC RDW Lymph % (Auto) [place] % (Auto) Eos % (Auto) Lymph # [place] # Lymph # (Auto) [place] # (Auto) Eos # (Auto) Seg Neutrophils % Seg Neuts % (Manual) Lymphocytes % (Manual) Seg Neutrophils # Seg Neutrophils # Man Lymphocytes # (Manual) Monocytes % (Manual) Eosinophils % (Manual) Monocytes # (Manual) Eosinophils # (Manual) D-Dimer Heparin Anti-Xa Level ABG pH POC ABG pCO2 POC ABG pO2 ABG pO2 ABG HCO3 ABG O2 Saturation ABG Base Excess ABG Hemoglobin ABG Oxyhemoglobin VBG pH ABG Sodium ABG Potassium ABG Glucose Oxyhemoglobin Sodium 147 H Potassium Chloride 108.0 H Carbon Dioxide BUN 71 H Creatinine 1.3 H Glucose 193 H POC Glucose 192 H Lactic Acid Calcium 8.1 L Ferritin AST Alkaline Phosphatase Magnesium Lactate Dehydrogenase Total Creatine Kinase 300 H CK-MB (CK-2) C-Reactive Protein Total Protein Albumin Troponin T 0.067 H HDL Cholesterol 61 H Arterial Blood Glucose Urine WBC (Auto) Urine Creatinine Urine Total Protein Phenytoin Coronavirus (PCR) Crossmatch 07/01/20 07/01/20 07/02/20 12:23 17:40 00:18 WBC RBC Hgb Hct MCHC RDW Lymph % (Auto) [place] % (Auto) Eos % (Auto) Lymph # [place] # Lymph # (Auto) [place] # (Auto) Eos # (Auto) Seg Neutrophils % Seg Neuts % (Manual) Lymphocytes % (Manual) Seg Neutrophils # Seg Neutrophils # Man Lymphocytes # (Manual) Monocytes % (Manual) Eosinophils % (Manual) Monocytes # (Manual) Eosinophils # (Manual) D-Dimer Heparin Anti-Xa Level ABG pH POC ABG pCO2 POC ABG pO2 ABG pO2 ABG HCO3 ABG O2 Saturation ABG Base Excess ABG Hemoglobin ABG Oxyhemoglobin VBG pH ABG Sodium ABG Potassium ABG Glucose Oxyhemoglobin Sodium Potassium Chloride Carbon Dioxide BUN Creatinine Glucose POC Glucose 111 H 135 H 145 H Lactic Acid Calcium Ferritin AST Alkaline Phosphatase Magnesium Lactate Dehydrogenase Total Creatine Kinase CK-MB (CK-2) C-Reactive Protein Total Protein Albumin Troponin T HDL Cholesterol Arterial Blood Glucose Urine WBC (Auto) Urine Creatinine Urine Total Protein Phenytoin Coronavirus (PCR) Crossmatch 07/02/20 07/02/20 07/02/20 04:11 04:23 05:54 WBC RBC Hgb Hct MCHC RDW Lymph % (Auto) [place] % (Auto) Eos % (Auto) Lymph # [place] # Lymph # (Auto) [place] # (Auto) Eos # (Auto) Seg Neutrophils % Seg Neuts % (Manual) Lymphocytes % (Manual) Seg Neutrophils # Seg Neutrophils # Man Lymphocytes # (Manual) Monocytes % (Manual) Eosinophils % (Manual) Monocytes # (Manual) Eosinophils # (Manual) D-Dimer Heparin Anti-Xa Level ABG pH POC ABG pCO2 POC ABG pO2 ABG pO2 ABG HCO3 ABG O2 Saturation ABG Base Excess ABG Hemoglobin 5.4 L ABG Oxyhemoglobin VBG pH ABG Sodium ABG Potassium ABG Glucose Oxyhemoglobin Sodium Potassium Chloride 108.6 H Carbon Dioxide BUN 72 H Creatinine Glucose 112 H POC Glucose 137 H Lactic Acid Calcium 7.8 L Ferritin AST Alkaline Phosphatase Magnesium Lactate Dehydrogenase Total Creatine Kinase CK-MB (CK-2) C-Reactive Protein Total Protein Albumin Troponin T HDL Cholesterol Arterial Blood Glucose Urine WBC (Auto) Urine Creatinine Urine Total Protein Phenytoin Coronavirus (PCR) Crossmatch 07/02/20 07/02/20 07/02/20 11:38 18:04 23:59 WBC RBC Hgb Hct MCHC RDW Lymph % (Auto) [place] % (Auto) Eos % (Auto) Lymph # [place] # Lymph # (Auto) [place] # (Auto) Eos # (Auto) Seg Neutrophils % Seg Neuts % (Manual) Lymphocytes % (Manual) Seg Neutrophils # Seg Neutrophils # Man Lymphocytes # (Manual) Monocytes % (Manual) Eosinophils % (Manual) Monocytes # (Manual) Eosinophils # (Manual) D-Dimer Heparin Anti-Xa Level ABG pH POC ABG pCO2 POC ABG pO2 ABG pO2 ABG HCO3 ABG O2 Saturation ABG Base Excess ABG Hemoglobin ABG Oxyhemoglobin VBG pH ABG Sodium ABG Potassium ABG Glucose Oxyhemoglobin Sodium Potassium Chloride Carbon Dioxide BUN Creatinine Glucose POC Glucose 128 H 135 H 156 H Lactic Acid Calcium Ferritin AST Alkaline Phosphatase Magnesium Lactate Dehydrogenase Total Creatine Kinase CK-MB (CK-2) C-Reactive Protein Total Protein Albumin Troponin T HDL Cholesterol Arterial Blood Glucose Urine WBC (Auto) Urine Creatinine Urine Total Protein Phenytoin Coronavirus (PCR) Crossmatch 07/03/20 07/03/20 07/03/20 03:49 06:00 11:31 WBC RBC Hgb Hct MCHC RDW Lymph % (Auto) [place] % (Auto) Eos % (Auto) Lymph # [place] # Lymph # (Auto) [place] # (Auto) Eos # (Auto) Seg Neutrophils % Seg Neuts % (Manual) Lymphocytes % (Manual) Seg Neutrophils # Seg Neutrophils # Man Lymphocytes # (Manual) Monocytes % (Manual) Eosinophils % (Manual) Monocytes # (Manual) Eosinophils # (Manual) D-Dimer Heparin Anti-Xa Level ABG pH POC ABG pCO2 POC ABG pO2 ABG pO2 121.0 H ABG HCO3 ABG O2 Saturation ABG Base Excess ABG Hemoglobin 8.5 L ABG Oxyhemoglobin VBG pH ABG Sodium ABG Potassium ABG Glucose Oxyhemoglobin Sodium Potassium Chloride Carbon Dioxide BUN Creatinine Glucose POC Glucose 135 H 141 H Lactic Acid Calcium Ferritin AST Alkaline Phosphatase Magnesium Lactate Dehydrogenase Total Creatine Kinase CK-MB (CK-2) C-Reactive Protein Total Protein Albumin Troponin T HDL Cholesterol Arterial Blood Glucose Urine WBC (Auto) Urine Creatinine Urine Total Protein Phenytoin Coronavirus (PCR) Crossmatch 07/03/20 07/03/20 07/03/20 16:00 16:07 17:40 WBC RBC Hgb Hct MCHC RDW Lymph % (Auto) [place] % (Auto) Eos % (Auto) Lymph # [place] # Lymph # (Auto) [place] # (Auto) Eos # (Auto) Seg Neutrophils % Seg Neuts % (Manual) Lymphocytes % (Manual) Seg Neutrophils # Seg Neutrophils # Man Lymphocytes # (Manual) Monocytes % (Manual) Eosinophils % (Manual) Monocytes # (Manual) Eosinophils # (Manual) D-Dimer Heparin Anti-Xa Level ABG pH 7.271 L POC ABG pCO2 POC ABG pO2 ABG pO2 126.9 H ABG HCO3 ABG O2 Saturation ABG Base Excess ABG Hemoglobin 8.2 L 8.1 L ABG Oxyhemoglobin VBG pH ABG Sodium 130.3 L ABG Potassium 4.9 H ABG Glucose 163 H Oxyhemoglobin Sodium Potassium Chloride Carbon Dioxide BUN Creatinine Glucose POC Glucose 120 H Lactic Acid Calcium Ferritin AST Alkaline Phosphatase Magnesium Lactate Dehydrogenase Total Creatine Kinase CK-MB (CK-2) C-Reactive Protein Total Protein Albumin Troponin T HDL Cholesterol Arterial Blood Glucose 163 H Urine WBC (Auto) Urine Creatinine Urine Total Protein Phenytoin Coronavirus (PCR) Crossmatch 07/04/20 07/04/20 07/04/20 05:49 11:54 18:00 WBC RBC Hgb Hct MCHC RDW Lymph % (Auto) [place] % (Auto) Eos % (Auto) Lymph # [place] # Lymph # (Auto) [place] # (Auto) Eos # (Auto) Seg Neutrophils % Seg Neuts % (Manual) Lymphocytes % (Manual) Seg Neutrophils # Seg Neutrophils # Man Lymphocytes # (Manual) Monocytes % (Manual) Eosinophils % (Manual) Monocytes # (Manual) Eosinophils # (Manual) D-Dimer Heparin Anti-Xa Level ABG pH POC ABG pCO2 POC ABG pO2 ABG pO2 ABG HCO3 ABG O2 Saturation ABG Base Excess ABG Hemoglobin ABG Oxyhemoglobin VBG pH ABG Sodium ABG Potassium ABG Glucose Oxyhemoglobin Sodium Potassium Chloride Carbon Dioxide BUN Creatinine Glucose POC Glucose 128 H 168 H 133 H Lactic Acid Calcium Ferritin AST Alkaline Phosphatase Magnesium Lactate Dehydrogenase Total Creatine Kinase CK-MB (CK-2) C-Reactive Protein Total Protein Albumin Troponin T HDL Cholesterol Arterial Blood Glucose Urine WBC (Auto) Urine Creatinine Urine Total Protein Phenytoin Coronavirus (PCR) Crossmatch 07/05/20 07/05/20 07/05/20 00:07 01:12 02:30 WBC RBC 2.35 L Hgb 6.9 L Hct 21.1 L MCHC RDW 16.8 H Lymph % (Auto) [place] % (Auto) Eos % (Auto) Lymph # [place] # Lymph # (Auto) [place] # (Auto) Eos # (Auto) Seg Neutrophils % Seg Neuts % (Manual) 74.0 H Lymphocytes % (Manual) 12.0 L Seg Neutrophils # Seg Neutrophils # Man 8.0 H Lymphocytes # (Manual) Monocytes % (Manual) 9.0 H Eosinophils % (Manual) Monocytes # (Manual) 1.0 H Eosinophils # (Manual) D-Dimer Heparin Anti-Xa Level ABG pH POC ABG pCO2 POC ABG pO2 ABG pO2 ABG HCO3 ABG O2 Saturation ABG Base Excess ABG Hemoglobin ABG Oxyhemoglobin VBG pH ABG Sodium ABG Potassium ABG Glucose Oxyhemoglobin Sodium Potassium Chloride Carbon Dioxide BUN Creatinine Glucose POC Glucose 121 H Lactic Acid Calcium Ferritin AST Alkaline Phosphatase Magnesium Lactate Dehydrogenase Total Creatine Kinase CK-MB (CK-2) C-Reactive Protein Total Protein Albumin Troponin T HDL Cholesterol Arterial Blood Glucose Urine WBC (Auto) Urine Creatinine Urine Total Protein Phenytoin Coronavirus (PCR) Crossmatch See Detail 07/05/20 07/05/20 07/05/20 12:09 13:05 18:04 WBC RBC Hgb Hct MCHC RDW Lymph % (Auto) [place] % (Auto) Eos % (Auto) Lymph # [place] # Lymph # (Auto) [place] # (Auto) Eos # (Auto) Seg Neutrophils % Seg Neuts % (Manual) Lymphocytes % (Manual) Seg Neutrophils # Seg Neutrophils # Man Lymphocytes # (Manual) Monocytes % (Manual) Eosinophils % (Manual) Monocytes # (Manual) Eosinophils # (Manual) D-Dimer Heparin Anti-Xa Level ABG pH 7.32 L POC ABG pCO2 POC ABG pO2 ABG pO2 78.3 L ABG HCO3 ABG O2 Saturation ABG Base Excess -2.6 L ABG Hemoglobin 7.3 L ABG Oxyhemoglobin VBG pH ABG Sodium ABG Potassium ABG Glucose Oxyhemoglobin Sodium Potassium Chloride Carbon Dioxide BUN Creatinine Glucose POC Glucose 132 H 160 H Lactic Acid Calcium Ferritin AST Alkaline Phosphatase Magnesium Lactate Dehydrogenase Total Creatine Kinase CK-MB (CK-2) C-Reactive Protein Total Protein Albumin Troponin T HDL Cholesterol Arterial Blood Glucose Urine WBC (Auto) Urine Creatinine Urine Total Protein Phenytoin Coronavirus (PCR) Crossmatch 07/05/20 07/05/20 07/05/20 23:13 23:13 23:43 WBC RBC 2.57 L Hgb 7.7 L Hct 23.0 L MCHC RDW 16.9 H Lymph % (Auto) [place] % (Auto) Eos % (Auto) Lymph # [place] # Lymph # (Auto) [place] # (Auto) Eos # (Auto) Seg Neutrophils % Seg Neuts % (Manual) Lymphocytes % (Manual) Seg Neutrophils # Seg Neutrophils # Man Lymphocytes # (Manual) Monocytes % (Manual) Eosinophils % (Manual) Monocytes # (Manual) Eosinophils # (Manual) D-Dimer Heparin Anti-Xa Level ABG pH POC ABG pCO2 POC ABG pO2 ABG pO2 ABG HCO3 ABG O2 Saturation ABG Base Excess ABG Hemoglobin ABG Oxyhemoglobin VBG pH ABG Sodium ABG Potassium ABG Glucose Oxyhemoglobin Sodium Potassium Chloride Carbon Dioxide 20 L BUN 80 H Creatinine 2.4 H D Glucose 124 H POC Glucose 121 H Lactic Acid Calcium 7.6 L Ferritin AST Alkaline Phosphatase Magnesium Lactate Dehydrogenase Total Creatine Kinase CK-MB (CK-2) C-Reactive Protein Total Protein Albumin Troponin T HDL Cholesterol Arterial Blood Glucose Urine WBC (Auto) Urine Creatinine Urine Total Protein Phenytoin Coronavirus (PCR) Crossmatch 07/06/20 07/06/20 07/06/20 13:20 14:48 17:28 WBC RBC Hgb Hct MCHC RDW Lymph % (Auto) [place] % (Auto) Eos % (Auto) Lymph # [place] # Lymph # (Auto) [place] # (Auto) Eos # (Auto) Seg Neutrophils % Seg Neuts % (Manual) Lymphocytes % (Manual) Seg Neutrophils # Seg Neutrophils # Man Lymphocytes # (Manual) Monocytes % (Manual) Eosinophils % (Manual) Monocytes # (Manual) Eosinophils # (Manual) D-Dimer Heparin Anti-Xa Level ABG pH POC ABG pCO2 POC ABG pO2 ABG pO2 ABG HCO3 ABG O2 Saturation ABG Base Excess ABG Hemoglobin ABG Oxyhemoglobin VBG pH ABG Sodium ABG Potassium ABG Glucose Oxyhemoglobin Sodium 136 L Potassium 5.5 H Chloride Carbon Dioxide 19 L BUN 82 H Creatinine 2.5 H Glucose 113 H POC Glucose 133 H Lactic Acid Calcium 7.7 L Ferritin AST Alkaline Phosphatase Magnesium Lactate Dehydrogenase Total Creatine Kinase CK-MB (CK-2) C-Reactive Protein Total Protein Albumin Troponin T HDL Cholesterol Arterial Blood Glucose Urine WBC (Auto) Urine Creatinine 33.3 H Urine Total Protein Phenytoin Coronavirus (PCR) Crossmatch 07/07/20 07/07/20 07/07/20 00:12 04:15 04:15 WBC RBC 2.28 L Hgb 6.8 L Hct 20.7 L MCHC RDW 16.8 H Lymph % (Auto) [place] % (Auto) Eos % (Auto) Lymph # [place] # Lymph # (Auto) [place] # (Auto) Eos # (Auto) Seg Neutrophils % Seg Neuts % (Manual) Lymphocytes % (Manual) 13.0 L Seg Neutrophils # Seg Neutrophils # Man Lymphocytes # (Manual) 1.0 L Monocytes % (Manual) 11.0 H Eosinophils % (Manual) Monocytes # (Manual) 0.9 H Eosinophils # (Manual) D-Dimer Heparin Anti-Xa Level ABG pH POC ABG pCO2 POC ABG pO2 ABG pO2 ABG HCO3 ABG O2 Saturation ABG Base Excess ABG Hemoglobin ABG Oxyhemoglobin VBG pH ABG Sodium ABG Potassium ABG Glucose Oxyhemoglobin Sodium Potassium Chloride Carbon Dioxide BUN Creatinine Glucose POC Glucose 154 H Lactic Acid Calcium Ferritin AST Alkaline Phosphatase Magnesium 2.50 H Lactate Dehydrogenase Total Creatine Kinase CK-MB (CK-2) C-Reactive Protein Total Protein Albumin Troponin T HDL Cholesterol Arterial Blood Glucose Urine WBC (Auto) Urine Creatinine Urine Total Protein Phenytoin Coronavirus (PCR) Crossmatch 07/07/20 07/07/20 07/07/20 05:31 12:31 13:22 WBC RBC Hgb Hct MCHC RDW Lymph % (Auto) [place] % (Auto) Eos % (Auto) Lymph # [place] # Lymph # (Auto) [place] # (Auto) Eos # (Auto) Seg Neutrophils % Seg Neuts % (Manual) Lymphocytes % (Manual) Seg Neutrophils # Seg Neutrophils # Man Lymphocytes # (Manual) Monocytes % (Manual) Eosinophils % (Manual) Monocytes # (Manual) Eosinophils # (Manual) D-Dimer Heparin Anti-Xa Level ABG pH POC ABG pCO2 POC ABG pO2 ABG pO2 ABG HCO3 ABG O2 Saturation ABG Base Excess ABG Hemoglobin ABG Oxyhemoglobin VBG pH ABG Sodium ABG Potassium ABG Glucose Oxyhemoglobin Sodium Potassium 5.6 H Chloride Carbon Dioxide BUN 86 H Creatinine 2.9 H Glucose 127 H POC Glucose 135 H 131 H Lactic Acid Calcium 8.1 L Ferritin AST Alkaline Phosphatase Magnesium Lactate Dehydrogenase Total Creatine Kinase CK-MB (CK-2) C-Reactive Protein Total Protein Albumin Troponin T HDL Cholesterol Arterial Blood Glucose Urine WBC (Auto) Urine Creatinine Urine Total Protein Phenytoin Coronavirus (PCR) Crossmatch 07/07/20 07/07/20 07/08/20 17:55 23:33 04:14 WBC RBC 3.28 L Hgb 9.7 L Hct 28.9 L D MCHC RDW 16.4 H Lymph % (Auto) 10.3 L [place] % (Auto) 10.0 H Eos % (Auto) Lymph # [place] # Lymph # (Auto) 1.1 L [place] # (Auto) 1.1 H Eos # (Auto) Seg Neutrophils % 77.2 H Seg Neuts % (Manual) Lymphocytes % (Manual) Seg Neutrophils # 8.2 H Seg Neutrophils # Man Lymphocytes # (Manual) Monocytes % (Manual) Eosinophils % (Manual) Monocytes # (Manual) Eosinophils # (Manual) D-Dimer Heparin Anti-Xa Level ABG pH POC ABG pCO2 POC ABG pO2 ABG pO2 ABG HCO3 ABG O2 Saturation ABG Base Excess ABG Hemoglobin ABG Oxyhemoglobin VBG pH ABG Sodium ABG Potassium ABG Glucose Oxyhemoglobin Sodium Potassium Chloride Carbon Dioxide BUN Creatinine Glucose POC Glucose 136 H 159 H Lactic Acid Calcium Ferritin AST Alkaline Phosphatase Magnesium Lactate Dehydrogenase Total Creatine Kinase CK-MB (CK-2) C-Reactive Protein Total Protein Albumin Troponin T HDL Cholesterol Arterial Blood Glucose Urine WBC (Auto) Urine Creatinine Urine Total Protein Phenytoin Coronavirus (PCR) Crossmatch 07/08/20 07/08/20 07/08/20 04:14 12:10 18:10 WBC RBC Hgb Hct MCHC RDW Lymph % (Auto) [place] % (Auto) Eos % (Auto) Lymph # [place] # Lymph # (Auto) [place] # (Auto) Eos # (Auto) Seg Neutrophils % Seg Neuts % (Manual) Lymphocytes % (Manual) Seg Neutrophils # Seg Neutrophils # Man Lymphocytes # (Manual) Monocytes % (Manual) Eosinophils % (Manual) Monocytes # (Manual) Eosinophils # (Manual) D-Dimer Heparin Anti-Xa Level ABG pH POC ABG pCO2 POC ABG pO2 ABG pO2 ABG HCO3 ABG O2 Saturation ABG Base Excess ABG Hemoglobin ABG Oxyhemoglobin VBG pH ABG Sodium ABG Potassium ABG Glucose Oxyhemoglobin Sodium 136 L Potassium Chloride Carbon Dioxide BUN 84 H Creatinine 2.8 H Glucose 109 H POC Glucose 108 H 125 H Lactic Acid Calcium 8.1 L Ferritin AST Alkaline Phosphatase Magnesium 2.50 H Lactate Dehydrogenase Total Creatine Kinase CK-MB (CK-2) C-Reactive Protein Total Protein Albumin Troponin T HDL Cholesterol Arterial Blood Glucose Urine WBC (Auto) Urine Creatinine Urine Total Protein Phenytoin Coronavirus (PCR) Crossmatch 07/08/20 07/09/20 07/09/20 23:50 05:39 11:57 WBC RBC Hgb Hct MCHC RDW Lymph % (Auto) [place] % (Auto) Eos % (Auto) Lymph # [place] # Lymph # (Auto) [place] # (Auto) Eos # (Auto) Seg Neutrophils % Seg Neuts % (Manual) Lymphocytes % (Manual) Seg Neutrophils # Seg Neutrophils # Man Lymphocytes # (Manual) Monocytes % (Manual) Eosinophils % (Manual) Monocytes # (Manual) Eosinophils # (Manual) D-Dimer Heparin Anti-Xa Level ABG pH POC ABG pCO2 POC ABG pO2 ABG pO2 ABG HCO3 ABG O2 Saturation ABG Base Excess ABG Hemoglobin ABG Oxyhemoglobin VBG pH ABG Sodium ABG Potassium ABG Glucose Oxyhemoglobin Sodium Potassium Chloride Carbon Dioxide BUN Creatinine Glucose POC Glucose 141 H 121 H 123 H Lactic Acid Calcium Ferritin AST Alkaline Phosphatase Magnesium Lactate Dehydrogenase Total Creatine Kinase CK-MB (CK-2) C-Reactive Protein Total Protein Albumin Troponin T HDL Cholesterol Arterial Blood Glucose Urine WBC (Auto) Urine Creatinine Urine Total Protein Phenytoin Coronavirus (PCR) Crossmatch 07/09/20 07/10/20 07/10/20 17:56 00:29 05:50 WBC RBC Hgb Hct MCHC RDW Lymph % (Auto) [place] % (Auto) Eos % (Auto) Lymph # [place] # Lymph # (Auto) [place] # (Auto) Eos # (Auto) Seg Neutrophils % Seg Neuts % (Manual) Lymphocytes % (Manual) Seg Neutrophils # Seg Neutrophils # Man Lymphocytes # (Manual) Monocytes % (Manual) Eosinophils % (Manual) Monocytes # (Manual) Eosinophils # (Manual) D-Dimer Heparin Anti-Xa Level ABG pH POC ABG pCO2 POC ABG pO2 ABG pO2 ABG HCO3 ABG O2 Saturation ABG Base Excess ABG Hemoglobin ABG Oxyhemoglobin VBG pH ABG Sodium ABG Potassium ABG Glucose Oxyhemoglobin Sodium Potassium Chloride Carbon Dioxide BUN Creatinine Glucose POC Glucose 119 H 122 H 124 H Lactic Acid Calcium Ferritin AST Alkaline Phosphatase Magnesium Lactate Dehydrogenase Total Creatine Kinase CK-MB (CK-2) C-Reactive Protein Total Protein Albumin Troponin T HDL Cholesterol Arterial Blood Glucose Urine WBC (Auto) Urine Creatinine Urine Total Protein Phenytoin Coronavirus (PCR) Crossmatch 07/10/20 07/10/20 07/10/20 10:41 10:41 12:25 WBC RBC 3.11 L Hgb 9.2 L Hct 27.6 L MCHC RDW 16.6 H Lymph % (Auto) [place] % (Auto) Eos % (Auto) Lymph # [place] # Lymph # (Auto) [place] # (Auto) Eos # (Auto) Seg Neutrophils % Seg Neuts % (Manual) 78.0 H Lymphocytes % (Manual) 11.0 L Seg Neutrophils # Seg Neutrophils # Man Lymphocytes # (Manual) 1.0 L Monocytes % (Manual) Eosinophils % (Manual) Monocytes # (Manual) Eosinophils # (Manual) D-Dimer Heparin Anti-Xa Level ABG pH POC ABG pCO2 POC ABG pO2 ABG pO2 ABG HCO3 ABG O2 Saturation ABG Base Excess ABG Hemoglobin ABG Oxyhemoglobin VBG pH ABG Sodium ABG Potassium ABG Glucose Oxyhemoglobin Sodium Potassium Chloride Carbon Dioxide BUN 85 H Creatinine 2.5 H Glucose 133 H POC Glucose 131 H Lactic Acid Calcium Ferritin AST Alkaline Phosphatase 131 H Magnesium Lactate Dehydrogenase Total Creatine Kinase CK-MB (CK-2) C-Reactive Protein Total Protein 5.2 L Albumin 1.6 L Troponin T HDL Cholesterol Arterial Blood Glucose Urine WBC (Auto) Urine Creatinine Urine Total Protein Phenytoin Coronavirus (PCR) Crossmatch 07/10/20 07/11/20 07/11/20 18:10 00:28 05:57 WBC RBC Hgb Hct MCHC RDW Lymph % (Auto) [place] % (Auto) Eos % (Auto) Lymph # [place] # Lymph # (Auto) [place] # (Auto) Eos # (Auto) Seg Neutrophils % Seg Neuts % (Manual) Lymphocytes % (Manual) Seg Neutrophils # Seg Neutrophils # Man Lymphocytes # (Manual) Monocytes % (Manual) Eosinophils % (Manual) Monocytes # (Manual) Eosinophils # (Manual) D-Dimer Heparin Anti-Xa Level ABG pH POC ABG pCO2 POC ABG pO2 ABG pO2 ABG HCO3 ABG O2 Saturation ABG Base Excess ABG Hemoglobin ABG Oxyhemoglobin VBG pH ABG Sodium ABG Potassium ABG Glucose Oxyhemoglobin Sodium Potassium Chloride Carbon Dioxide BUN Creatinine Glucose POC Glucose 134 H 140 H 148 H Lactic Acid Calcium Ferritin AST Alkaline Phosphatase Magnesium Lactate Dehydrogenase Total Creatine Kinase CK-MB (CK-2) C-Reactive Protein Total Protein Albumin Troponin T HDL Cholesterol Arterial Blood Glucose Urine WBC (Auto) Urine Creatinine Urine Total Protein Phenytoin Coronavirus (PCR) Crossmatch 07/11/20 07/11/20 07/11/20 12:14 17:28 23:49 WBC RBC Hgb Hct MCHC RDW Lymph % (Auto) [place] % (Auto) Eos % (Auto) Lymph # [place] # Lymph # (Auto) [place] # (Auto) Eos # (Auto) Seg Neutrophils % Seg Neuts % (Manual) Lymphocytes % (Manual) Seg Neutrophils # Seg Neutrophils # Man Lymphocytes # (Manual) Monocytes % (Manual) Eosinophils % (Manual) Monocytes # (Manual) Eosinophils # (Manual) D-Dimer Heparin Anti-Xa Level ABG pH POC ABG pCO2 POC ABG pO2 ABG pO2 ABG HCO3 ABG O2 Saturation ABG Base Excess ABG Hemoglobin ABG Oxyhemoglobin VBG pH ABG Sodium ABG Potassium ABG Glucose Oxyhemoglobin Sodium Potassium Chloride Carbon Dioxide BUN Creatinine Glucose POC Glucose 147 H 175 H 114 H Lactic Acid Calcium Ferritin AST Alkaline Phosphatase Magnesium Lactate Dehydrogenase Total Creatine Kinase CK-MB (CK-2) C-Reactive Protein Total Protein Albumin Troponin T HDL Cholesterol Arterial Blood Glucose Urine WBC (Auto) Urine Creatinine Urine Total Protein Phenytoin Coronavirus (PCR) Crossmatch 07/12/20 07/12/20 07/12/20 05:14 05:14 05:44 WBC RBC 2.78 L Hgb 8.5 L Hct 25.3 L MCHC RDW 16.7 H Lymph % (Auto) [place] % (Auto) Eos % (Auto) Lymph # [place] # Lymph # (Auto) [place] # (Auto) Eos # (Auto) Seg Neutrophils % Seg Neuts % (Manual) 81.0 H Lymphocytes % (Manual) 6.0 L Seg Neutrophils # Seg Neutrophils # Man Lymphocytes # (Manual) 0.6 L Monocytes % (Manual) 8.0 H Eosinophils % (Manual) Monocytes # (Manual) Eosinophils # (Manual) D-Dimer Heparin Anti-Xa Level ABG pH POC ABG pCO2 POC ABG pO2 ABG pO2 ABG HCO3 ABG O2 Saturation ABG Base Excess ABG Hemoglobin ABG Oxyhemoglobin VBG pH ABG Sodium ABG Potassium ABG Glucose Oxyhemoglobin Sodium Potassium Chloride Carbon Dioxide BUN 79 H Creatinine 2.2 H Glucose 131 H POC Glucose 116 H Lactic Acid Calcium Ferritin AST Alkaline Phosphatase Magnesium Lactate Dehydrogenase Total Creatine Kinase CK-MB (CK-2) C-Reactive Protein Total Protein Albumin Troponin T HDL Cholesterol Arterial Blood Glucose Urine WBC (Auto) Urine Creatinine Urine Total Protein Phenytoin Coronavirus (PCR) Crossmatch 07/12/20 07/12/20 07/13/20 11:32 17:53 00:18 WBC RBC Hgb Hct MCHC RDW Lymph % (Auto) [place] % (Auto) Eos % (Auto) Lymph # [place] # Lymph # (Auto) [place] # (Auto) Eos # (Auto) Seg Neutrophils % Seg Neuts % (Manual) Lymphocytes % (Manual) Seg Neutrophils # Seg Neutrophils # Man Lymphocytes # (Manual) Monocytes % (Manual) Eosinophils % (Manual) Monocytes # (Manual) Eosinophils # (Manual) D-Dimer Heparin Anti-Xa Level ABG pH POC ABG pCO2 POC ABG pO2 ABG pO2 ABG HCO3 ABG O2 Saturation ABG Base Excess ABG Hemoglobin ABG Oxyhemoglobin VBG pH ABG Sodium ABG Potassium ABG Glucose Oxyhemoglobin Sodium Potassium Chloride Carbon Dioxide BUN Creatinine Glucose POC Glucose 132 H 155 H 162 H Lactic Acid Calcium Ferritin AST Alkaline Phosphatase Magnesium Lactate Dehydrogenase Total Creatine Kinase CK-MB (CK-2) C-Reactive Protein Total Protein Albumin Troponin T HDL Cholesterol Arterial Blood Glucose Urine WBC (Auto) Urine Creatinine Urine Total Protein Phenytoin Coronavirus (PCR) Crossmatch 07/13/20 07/13/20 07/13/20 04:53 04:53 06:14 WBC RBC 2.86 L Hgb 8.4 L Hct 25.7 L MCHC RDW 16.8 H Lymph % (Auto) [place] % (Auto) Eos % (Auto) Lymph # [place] # Lymph # (Auto) [place] # (Auto) Eos # (Auto) Seg Neutrophils % Seg Neuts % (Manual) 84.0 H Lymphocytes % (Manual) 7.0 L Seg Neutrophils # Seg Neutrophils # Man Lymphocytes # (Manual) 0.6 L Monocytes % (Manual) Eosinophils % (Manual) Monocytes # (Manual) Eosinophils # (Manual) D-Dimer Heparin Anti-Xa Level ABG pH POC ABG pCO2 POC ABG pO2 ABG pO2 ABG HCO3 ABG O2 Saturation ABG Base Excess ABG Hemoglobin ABG Oxyhemoglobin VBG pH ABG Sodium ABG Potassium ABG Glucose Oxyhemoglobin Sodium 136 L Potassium Chloride Carbon Dioxide BUN 78 H Creatinine 2.0 H Glucose 130 H POC Glucose 141 H Lactic Acid Calcium Ferritin AST Alkaline Phosphatase Magnesium Lactate Dehydrogenase Total Creatine Kinase CK-MB (CK-2) C-Reactive Protein Total Protein Albumin Troponin T HDL Cholesterol Arterial Blood Glucose Urine WBC (Auto) Urine Creatinine Urine Total Protein Phenytoin Coronavirus (PCR) Crossmatch 07/13/20 07/13/20 07/14/20 12:50 18:27 00:22 WBC RBC Hgb Hct MCHC RDW Lymph % (Auto) [place] % (Auto) Eos % (Auto) Lymph # [place] # Lymph # (Auto) [place] # (Auto) Eos # (Auto) Seg Neutrophils % Seg Neuts % (Manual) Lymphocytes % (Manual) Seg Neutrophils # Seg Neutrophils # Man Lymphocytes # (Manual) Monocytes % (Manual) Eosinophils % (Manual) Monocytes # (Manual) Eosinophils # (Manual) D-Dimer Heparin Anti-Xa Level ABG pH POC ABG pCO2 POC ABG pO2 ABG pO2 ABG HCO3 ABG O2 Saturation ABG Base Excess ABG Hemoglobin ABG Oxyhemoglobin VBG pH ABG Sodium ABG Potassium ABG Glucose Oxyhemoglobin Sodium Potassium Chloride Carbon Dioxide BUN Creatinine Glucose POC Glucose 146 H 149 H 157 H Lactic Acid Calcium Ferritin AST Alkaline Phosphatase Magnesium Lactate Dehydrogenase Total Creatine Kinase CK-MB (CK-2) C-Reactive Protein Total Protein Albumin Troponin T HDL Cholesterol Arterial Blood Glucose Urine WBC (Auto) Urine Creatinine Urine Total Protein Phenytoin Coronavirus (PCR) Crossmatch 07/14/20 07/14/20 07/14/20 05:43 08:04 12:12 WBC RBC Hgb Hct MCHC RDW Lymph % (Auto) [place] % (Auto) Eos % (Auto) Lymph # [place] # Lymph # (Auto) [place] # (Auto) Eos # (Auto) Seg Neutrophils % Seg Neuts % (Manual) Lymphocytes % (Manual) Seg Neutrophils # Seg Neutrophils # Man Lymphocytes # (Manual) Monocytes % (Manual) Eosinophils % (Manual) Monocytes # (Manual) Eosinophils # (Manual) D-Dimer Heparin Anti-Xa Level ABG pH POC ABG pCO2 POC ABG pO2 ABG pO2 ABG HCO3 ABG O2 Saturation ABG Base Excess ABG Hemoglobin ABG Oxyhemoglobin VBG pH ABG Sodium ABG Potassium ABG Glucose Oxyhemoglobin Sodium Potassium Chloride Carbon Dioxide BUN Creatinine Glucose POC Glucose 169 H 185 H Lactic Acid Calcium Ferritin AST Alkaline Phosphatase Magnesium Lactate Dehydrogenase Total Creatine Kinase CK-MB (CK-2) C-Reactive Protein Total Protein Albumin Troponin T HDL Cholesterol Arterial Blood Glucose Urine WBC (Auto) Urine Creatinine Urine Total Protein Phenytoin Coronavirus (PCR) Positive A Crossmatch 07/14/20 07/15/20 07/15/20 17:23 00:04 06:06 WBC RBC Hgb Hct MCHC RDW Lymph % (Auto) [place] % (Auto) Eos % (Auto) Lymph # [place] # Lymph # (Auto) [place] # (Auto) Eos # (Auto) Seg Neutrophils % Seg Neuts % (Manual) Lymphocytes % (Manual) Seg Neutrophils # Seg Neutrophils # Man Lymphocytes # (Manual) Monocytes % (Manual) Eosinophils % (Manual) Monocytes # (Manual) Eosinophils # (Manual) D-Dimer Heparin Anti-Xa Level ABG pH POC ABG pCO2 POC ABG pO2 ABG pO2 ABG HCO3 ABG O2 Saturation ABG Base Excess ABG Hemoglobin ABG Oxyhemoglobin VBG pH ABG Sodium ABG Potassium ABG Glucose Oxyhemoglobin Sodium Potassium Chloride Carbon Dioxide BUN Creatinine Glucose POC Glucose 138 H 121 H 140 H Lactic Acid Calcium Ferritin AST Alkaline Phosphatase Magnesium Lactate Dehydrogenase Total Creatine Kinase CK-MB (CK-2) C-Reactive Protein Total Protein Albumin Troponin T HDL Cholesterol Arterial Blood Glucose Urine WBC (Auto) Urine Creatinine Urine Total Protein Phenytoin Coronavirus (PCR) Crossmatch 07/15/20 07/15/20 07/15/20 12:00 17:53 23:53 WBC RBC Hgb Hct MCHC RDW Lymph % (Auto) [place] % (Auto) Eos % (Auto) Lymph # [place] # Lymph # (Auto) [place] # (Auto) Eos # (Auto) Seg Neutrophils % Seg Neuts % (Manual) Lymphocytes % (Manual) Seg Neutrophils # Seg Neutrophils # Man Lymphocytes # (Manual) Monocytes % (Manual) Eosinophils % (Manual) Monocytes # (Manual) Eosinophils # (Manual) D-Dimer Heparin Anti-Xa Level ABG pH POC ABG pCO2 POC ABG pO2 ABG pO2 ABG HCO3 ABG O2 Saturation ABG Base Excess ABG Hemoglobin ABG Oxyhemoglobin VBG pH ABG Sodium ABG Potassium ABG Glucose Oxyhemoglobin Sodium Potassium Chloride Carbon Dioxide BUN Creatinine Glucose POC Glucose 137 H 161 H 156 H Lactic Acid Calcium Ferritin AST Alkaline Phosphatase Magnesium Lactate Dehydrogenase Total Creatine Kinase CK-MB (CK-2) C-Reactive Protein Total Protein Albumin Troponin T HDL Cholesterol Arterial Blood Glucose Urine WBC (Auto) Urine Creatinine Urine Total Protein Phenytoin Coronavirus (PCR) Crossmatch 07/16/20 07/16/20 07/17/20 05:26 17:44 00:07 WBC RBC Hgb Hct MCHC RDW Lymph % (Auto) [place] % (Auto) Eos % (Auto) Lymph # [place] # Lymph # (Auto) [place] # (Auto) Eos # (Auto) Seg Neutrophils % Seg Neuts % (Manual) Lymphocytes % (Manual) Seg Neutrophils # Seg Neutrophils # Man Lymphocytes # (Manual) Monocytes % (Manual) Eosinophils % (Manual) Monocytes # (Manual) Eosinophils # (Manual) D-Dimer Heparin Anti-Xa Level ABG pH POC ABG pCO2 POC ABG pO2 ABG pO2 ABG HCO3 ABG O2 Saturation ABG Base Excess ABG Hemoglobin ABG Oxyhemoglobin VBG pH ABG Sodium ABG Potassium ABG Glucose Oxyhemoglobin Sodium Potassium Chloride Carbon Dioxide BUN Creatinine Glucose POC Glucose 152 H 126 H 189 H Lactic Acid Calcium Ferritin AST Alkaline Phosphatase Magnesium Lactate Dehydrogenase Total Creatine Kinase CK-MB (CK-2) C-Reactive Protein Total Protein Albumin Troponin T HDL Cholesterol Arterial Blood Glucose Urine WBC (Auto) Urine Creatinine Urine Total Protein Phenytoin Coronavirus (PCR) Crossmatch 07/17/20 07/17/20 07/17/20 12:06 18:20 23:25 WBC RBC Hgb Hct MCHC RDW Lymph % (Auto) [place] % (Auto) Eos % (Auto) Lymph # [place] # Lymph # (Auto) [place] # (Auto) Eos # (Auto) Seg Neutrophils % Seg Neuts % (Manual) Lymphocytes % (Manual) Seg Neutrophils # Seg Neutrophils # Man Lymphocytes # (Manual) Monocytes % (Manual) Eosinophils % (Manual) Monocytes # (Manual) Eosinophils # (Manual) D-Dimer Heparin Anti-Xa Level ABG pH POC ABG pCO2 POC ABG pO2 ABG pO2 ABG HCO3 ABG O2 Saturation ABG Base Excess ABG Hemoglobin ABG Oxyhemoglobin VBG pH ABG Sodium ABG Potassium ABG Glucose Oxyhemoglobin Sodium Potassium Chloride Carbon Dioxide BUN Creatinine Glucose POC Glucose 155 H 206 H 161 H Lactic Acid Calcium Ferritin AST Alkaline Phosphatase Magnesium Lactate Dehydrogenase Total Creatine Kinase CK-MB (CK-2) C-Reactive Protein Total Protein Albumin Troponin T HDL Cholesterol Arterial Blood Glucose Urine WBC (Auto) Urine Creatinine Urine Total Protein Phenytoin Coronavirus (PCR) Crossmatch 07/18/20 07/18/20 07/18/20 04:24 05:16 11:53 WBC RBC Hgb Hct MCHC RDW Lymph % (Auto) [place] % (Auto) Eos % (Auto) Lymph # [place] # Lymph # (Auto) [place] # (Auto) Eos # (Auto) Seg Neutrophils % Seg Neuts % (Manual) Lymphocytes % (Manual) Seg Neutrophils # Seg Neutrophils # Man Lymphocytes # (Manual) Monocytes % (Manual) Eosinophils % (Manual) Monocytes # (Manual) Eosinophils # (Manual) D-Dimer Heparin Anti-Xa Level ABG pH POC ABG pCO2 POC ABG pO2 ABG pO2 ABG HCO3 ABG O2 Saturation ABG Base Excess ABG Hemoglobin 8.8 L ABG Oxyhemoglobin VBG pH ABG Sodium 131.6 L ABG Potassium 4.9 H ABG Glucose 131 H Oxyhemoglobin Sodium Potassium Chloride Carbon Dioxide BUN Creatinine Glucose POC Glucose 140 H 176 H Lactic Acid Calcium Ferritin AST Alkaline Phosphatase Magnesium Lactate Dehydrogenase Total Creatine Kinase CK-MB (CK-2) C-Reactive Protein Total Protein Albumin Troponin T HDL Cholesterol Arterial Blood Glucose 131 H Urine WBC (Auto) Urine Creatinine Urine Total Protein Phenytoin Coronavirus (PCR) Crossmatch 07/18/20 07/18/20 07/19/20 18:11 23:51 01:05 WBC RBC 2.76 L Hgb 7.9 L Hct 24.5 L MCHC RDW 17.6 H Lymph % (Auto) 11.6 L [place] % (Auto) 13.1 H Eos % (Auto) Lymph # [place] # Lymph # (Auto) 1.0 L [place] # (Auto) 1.1 H Eos # (Auto) Seg Neutrophils % 70.9 H Seg Neuts % (Manual) Lymphocytes % (Manual) Seg Neutrophils # Seg Neutrophils # Man Lymphocytes # (Manual) Monocytes % (Manual) Eosinophils % (Manual) Monocytes # (Manual) Eosinophils # (Manual) D-Dimer Heparin Anti-Xa Level ABG pH POC ABG pCO2 POC ABG pO2 ABG pO2 ABG HCO3 ABG O2 Saturation ABG Base Excess ABG Hemoglobin ABG Oxyhemoglobin VBG pH ABG Sodium ABG Potassium ABG Glucose Oxyhemoglobin Sodium Potassium Chloride Carbon Dioxide BUN Creatinine Glucose POC Glucose 143 H 159 H Lactic Acid Calcium Ferritin AST Alkaline Phosphatase Magnesium Lactate Dehydrogenase Total Creatine Kinase CK-MB (CK-2) C-Reactive Protein Total Protein Albumin Troponin T HDL Cholesterol Arterial Blood Glucose Urine WBC (Auto) Urine Creatinine Urine Total Protein Phenytoin Coronavirus (PCR) Crossmatch 07/19/20 07/19/20 07/19/20 01:05 05:54 12:46 WBC RBC Hgb Hct MCHC RDW Lymph % (Auto) [place] % (Auto) Eos % (Auto) Lymph # [place] # Lymph # (Auto) [place] # (Auto) Eos # (Auto) Seg Neutrophils % Seg Neuts % (Manual) Lymphocytes % (Manual) Seg Neutrophils # Seg Neutrophils # Man Lymphocytes # (Manual) Monocytes % (Manual) Eosinophils % (Manual) Monocytes # (Manual) Eosinophils # (Manual) D-Dimer Heparin Anti-Xa Level ABG pH POC ABG pCO2 POC ABG pO2 ABG pO2 ABG HCO3 ABG O2 Saturation ABG Base Excess ABG Hemoglobin ABG Oxyhemoglobin VBG pH ABG Sodium ABG Potassium ABG Glucose Oxyhemoglobin Sodium Potassium Chloride Carbon Dioxide BUN 86 H Creatinine 1.7 H Glucose 149 H POC Glucose 176 H 127 H Lactic Acid Calcium Ferritin AST Alkaline Phosphatase Magnesium Lactate Dehydrogenase Total Creatine Kinase CK-MB (CK-2) C-Reactive Protein Total Protein Albumin Troponin T HDL Cholesterol Arterial Blood Glucose Urine WBC (Auto) Urine Creatinine Urine Total Protein Phenytoin Coronavirus (PCR) Crossmatch 07/19/20 07/20/20 07/20/20 17:48 00:34 05:28 WBC RBC Hgb Hct MCHC RDW Lymph % (Auto) [place] % (Auto) Eos % (Auto) Lymph # [place] # Lymph # (Auto) [place] # (Auto) Eos # (Auto) Seg Neutrophils % Seg Neuts % (Manual) Lymphocytes % (Manual) Seg Neutrophils # Seg Neutrophils # Man Lymphocytes # (Manual) Monocytes % (Manual) Eosinophils % (Manual) Monocytes # (Manual) Eosinophils # (Manual) D-Dimer Heparin Anti-Xa Level ABG pH POC ABG pCO2 POC ABG pO2 ABG pO2 ABG HCO3 ABG O2 Saturation ABG Base Excess ABG Hemoglobin ABG Oxyhemoglobin VBG pH ABG Sodium ABG Potassium ABG Glucose Oxyhemoglobin Sodium Potassium Chloride Carbon Dioxide BUN Creatinine Glucose POC Glucose 123 H 147 H 110 H Lactic Acid Calcium Ferritin AST Alkaline Phosphatase Magnesium Lactate Dehydrogenase Total Creatine Kinase CK-MB (CK-2) C-Reactive Protein Total Protein Albumin Troponin T HDL Cholesterol Arterial Blood Glucose Urine WBC (Auto) Urine Creatinine Urine Total Protein Phenytoin Coronavirus (PCR) Crossmatch 07/20/20 07/20/20 07/21/20 12:10 17:00 00:11 WBC RBC Hgb Hct MCHC RDW Lymph % (Auto) [place] % (Auto) Eos % (Auto) Lymph # [place] # Lymph # (Auto) [place] # (Auto) Eos # (Auto) Seg Neutrophils % Seg Neuts % (Manual) Lymphocytes % (Manual) Seg Neutrophils # Seg Neutrophils # Man Lymphocytes # (Manual) Monocytes % (Manual) Eosinophils % (Manual) Monocytes # (Manual) Eosinophils # (Manual) D-Dimer Heparin Anti-Xa Level ABG pH POC ABG pCO2 POC ABG pO2 ABG pO2 ABG HCO3 ABG O2 Saturation ABG Base Excess ABG Hemoglobin ABG Oxyhemoglobin VBG pH ABG Sodium ABG Potassium ABG Glucose Oxyhemoglobin Sodium Potassium Chloride Carbon Dioxide BUN Creatinine Glucose POC Glucose 149 H 173 H 128 H Lactic Acid Calcium Ferritin AST Alkaline Phosphatase Magnesium Lactate Dehydrogenase Total Creatine Kinase CK-MB (CK-2) C-Reactive Protein Total Protein Albumin Troponin T HDL Cholesterol Arterial Blood Glucose Urine WBC (Auto) Urine Creatinine Urine Total Protein Phenytoin Coronavirus (PCR) Crossmatch 07/21/20 07/21/20 07/21/20 05:30 12:21 18:17 WBC RBC Hgb Hct MCHC RDW Lymph % (Auto) [place] % (Auto) Eos % (Auto) Lymph # [place] # Lymph # (Auto) [place] # (Auto) Eos # (Auto) Seg Neutrophils % Seg Neuts % (Manual) Lymphocytes % (Manual) Seg Neutrophils # Seg Neutrophils # Man Lymphocytes # (Manual) Monocytes % (Manual) Eosinophils % (Manual) Monocytes # (Manual) Eosinophils # (Manual) D-Dimer Heparin Anti-Xa Level ABG pH POC ABG pCO2 POC ABG pO2 ABG pO2 ABG HCO3 ABG O2 Saturation ABG Base Excess ABG Hemoglobin ABG Oxyhemoglobin VBG pH ABG Sodium ABG Potassium ABG Glucose Oxyhemoglobin Sodium Potassium Chloride Carbon Dioxide BUN Creatinine Glucose POC Glucose 153 H 144 H 160 H Lactic Acid Calcium Ferritin AST Alkaline Phosphatase Magnesium Lactate Dehydrogenase Total Creatine Kinase CK-MB (CK-2) C-Reactive Protein Total Protein Albumin Troponin T HDL Cholesterol Arterial Blood Glucose Urine WBC (Auto) Urine Creatinine Urine Total Protein Phenytoin Coronavirus (PCR) Crossmatch 07/22/20 07/22/20 07/22/20 00:45 05:52 12:03 WBC RBC Hgb Hct MCHC RDW Lymph % (Auto) [place] % (Auto) Eos % (Auto) Lymph # [place] # Lymph # (Auto) [place] # (Auto) Eos # (Auto) Seg Neutrophils % Seg Neuts % (Manual) Lymphocytes % (Manual) Seg Neutrophils # Seg Neutrophils # Man Lymphocytes # (Manual) Monocytes % (Manual) Eosinophils % (Manual) Monocytes # (Manual) Eosinophils # (Manual) D-Dimer Heparin Anti-Xa Level ABG pH POC ABG pCO2 POC ABG pO2 ABG pO2 ABG HCO3 ABG O2 Saturation ABG Base Excess ABG Hemoglobin ABG Oxyhemoglobin VBG pH ABG Sodium ABG Potassium ABG Glucose Oxyhemoglobin Sodium Potassium Chloride Carbon Dioxide BUN Creatinine Glucose POC Glucose 128 H 126 H 157 H Lactic Acid Calcium Ferritin AST Alkaline Phosphatase Magnesium Lactate Dehydrogenase Total Creatine Kinase CK-MB (CK-2) C-Reactive Protein Total Protein Albumin Troponin T HDL Cholesterol Arterial Blood Glucose Urine WBC (Auto) Urine Creatinine Urine Total Protein Phenytoin Coronavirus (PCR) Crossmatch 07/22/20 07/22/20 07/23/20 18:23 23:20 06:06 WBC RBC Hgb Hct MCHC RDW Lymph % (Auto) [place] % (Auto) Eos % (Auto) Lymph # [place] # Lymph # (Auto) [place] # (Auto) Eos # (Auto) Seg Neutrophils % Seg Neuts % (Manual) Lymphocytes % (Manual) Seg Neutrophils # Seg Neutrophils # Man Lymphocytes # (Manual) Monocytes % (Manual) Eosinophils % (Manual) Monocytes # (Manual) Eosinophils # (Manual) D-Dimer Heparin Anti-Xa Level ABG pH POC ABG pCO2 POC ABG pO2 ABG pO2 ABG HCO3 ABG O2 Saturation ABG Base Excess ABG Hemoglobin ABG Oxyhemoglobin VBG pH ABG Sodium ABG Potassium ABG Glucose Oxyhemoglobin Sodium Potassium Chloride Carbon Dioxide BUN Creatinine Glucose POC Glucose 152 H 122 H 143 H Lactic Acid Calcium Ferritin AST Alkaline Phosphatase Magnesium Lactate Dehydrogenase Total Creatine Kinase CK-MB (CK-2) C-Reactive Protein Total Protein Albumin Troponin T HDL Cholesterol Arterial Blood Glucose Urine WBC (Auto) Urine Creatinine Urine Total Protein Phenytoin Coronavirus (PCR) Crossmatch 07/23/20 07/23/20 07/23/20 12:11 17:38 19:23 WBC RBC Hgb Hct MCHC RDW Lymph % (Auto) [place] % (Auto) Eos % (Auto) Lymph # [place] # Lymph # (Auto) [place] # (Auto) Eos # (Auto) Seg Neutrophils % Seg Neuts % (Manual) Lymphocytes % (Manual) Seg Neutrophils # Seg Neutrophils # Man Lymphocytes # (Manual) Monocytes % (Manual) Eosinophils % (Manual) Monocytes # (Manual) Eosinophils # (Manual) D-Dimer Heparin Anti-Xa Level ABG pH POC ABG pCO2 POC ABG pO2 ABG pO2 ABG HCO3 ABG O2 Saturation ABG Base Excess ABG Hemoglobin ABG Oxyhemoglobin VBG pH ABG Sodium ABG Potassium ABG Glucose Oxyhemoglobin Sodium 129 L D Potassium 5.8 H Chloride 95.6 L Carbon Dioxide BUN 98 H Creatinine 2.1 H Glucose 167 H POC Glucose 210 H 181 H Lactic Acid Calcium Ferritin AST Alkaline Phosphatase Magnesium Lactate Dehydrogenase Total Creatine Kinase CK-MB (CK-2) C-Reactive Protein Total Protein Albumin 2.2 L Troponin T HDL Cholesterol Arterial Blood Glucose Urine WBC (Auto) Urine Creatinine Urine Total Protein Phenytoin Coronavirus (PCR) Crossmatch 07/24/20 07/24/20 07/24/20 00:00 04:29 04:29 WBC RBC 2.53 L Hgb 7.5 L Hct 22.8 L MCHC RDW 16.8 H Lymph % (Auto) 9.4 L [place] % (Auto) 10.4 H Eos % (Auto) 5.9 H Lymph # [place] # Lymph # (Auto) 0.8 L [place] # (Auto) 0.9 H Eos # (Auto) 0.5 H Seg Neutrophils % 73.5 H Seg Neuts % (Manual) Lymphocytes % (Manual) Seg Neutrophils # Seg Neutrophils # Man Lymphocytes # (Manual) Monocytes % (Manual) Eosinophils % (Manual) Monocytes # (Manual) Eosinophils # (Manual) D-Dimer Heparin Anti-Xa Level ABG pH POC ABG pCO2 POC ABG pO2 ABG pO2 ABG HCO3 ABG O2 Saturation ABG Base Excess ABG Hemoglobin ABG Oxyhemoglobin VBG pH ABG Sodium ABG Potassium ABG Glucose Oxyhemoglobin Sodium Potassium Chloride Carbon Dioxide BUN Creatinine Glucose POC Glucose 201 H Lactic Acid Calcium Ferritin AST Alkaline Phosphatase Magnesium Lactate Dehydrogenase Total Creatine Kinase CK-MB (CK-2) C-Reactive Protein Total Protein Albumin Troponin T HDL Cholesterol Arterial Blood Glucose Urine WBC (Auto) Urine Creatinine Urine Total Protein Phenytoin 9.4 L Coronavirus (PCR) Crossmatch 07/24/20 07/24/20 07/24/20 04:29 05:11 12:14 WBC RBC Hgb Hct MCHC RDW Lymph % (Auto) [place] % (Auto) Eos % (Auto) Lymph # [place] # Lymph # (Auto) [place] # (Auto) Eos # (Auto) Seg Neutrophils % Seg Neuts % (Manual) Lymphocytes % (Manual) Seg Neutrophils # Seg Neutrophils # Man Lymphocytes # (Manual) Monocytes % (Manual) Eosinophils % (Manual) Monocytes # (Manual) Eosinophils # (Manual) D-Dimer Heparin Anti-Xa Level ABG pH POC ABG pCO2 POC ABG pO2 ABG pO2 ABG HCO3 ABG O2 Saturation ABG Base Excess ABG Hemoglobin ABG Oxyhemoglobin VBG pH ABG Sodium ABG Potassium ABG Glucose Oxyhemoglobin Sodium 134 L Potassium 5.5 H Chloride Carbon Dioxide BUN 97 H Creatinine 2.2 H Glucose 149 H POC Glucose 142 H 146 H Lactic Acid Calcium Ferritin AST Alkaline Phosphatase Magnesium 2.60 H Lactate Dehydrogenase Total Creatine Kinase CK-MB (CK-2) C-Reactive Protein Total Protein Albumin Troponin T HDL Cholesterol Arterial Blood Glucose Urine WBC (Auto) Urine Creatinine Urine Total Protein Phenytoin Coronavirus (PCR) Crossmatch 07/24/20 07/24/20 07/25/20 18:12 21:00 00:08 WBC RBC Hgb Hct MCHC RDW Lymph % (Auto) [place] % (Auto) Eos % (Auto) Lymph # [place] # Lymph # (Auto) [place] # (Auto) Eos # (Auto) Seg Neutrophils % Seg Neuts % (Manual) Lymphocytes % (Manual) Seg Neutrophils # Seg Neutrophils # Man Lymphocytes # (Manual) Monocytes % (Manual) Eosinophils % (Manual) Monocytes # (Manual) Eosinophils # (Manual) D-Dimer Heparin Anti-Xa Level ABG pH POC ABG pCO2 POC ABG pO2 ABG pO2 ABG HCO3 ABG O2 Saturation ABG Base Excess ABG Hemoglobin ABG Oxyhemoglobin VBG pH ABG Sodium ABG Potassium ABG Glucose Oxyhemoglobin Sodium Potassium Chloride Carbon Dioxide BUN Creatinine Glucose POC Glucose 182 H 170 H 129 H Lactic Acid Calcium Ferritin AST Alkaline Phosphatase Magnesium Lactate Dehydrogenase Total Creatine Kinase CK-MB (CK-2) C-Reactive Protein Total Protein Albumin Troponin T HDL Cholesterol Arterial Blood Glucose Urine WBC (Auto) Urine Creatinine Urine Total Protein Phenytoin Coronavirus (PCR) Crossmatch 07/25/20 07/25/20 07/25/20 04:24 04:24 12:19 WBC RBC 2.51 L Hgb 7.5 L Hct 22.3 L MCHC RDW 17.4 H Lymph % (Auto) [place] % (Auto) Eos % (Auto) Lymph # [place] # Lymph # (Auto) [place] # (Auto) Eos # (Auto) Seg Neutrophils % Seg Neuts % (Manual) Lymphocytes % (Manual) Seg Neutrophils # Seg Neutrophils # Man Lymphocytes # (Manual) Monocytes % (Manual) Eosinophils % (Manual) Monocytes # (Manual) Eosinophils # (Manual) D-Dimer Heparin Anti-Xa Level ABG pH POC ABG pCO2 POC ABG pO2 ABG pO2 ABG HCO3 ABG O2 Saturation ABG Base Excess ABG Hemoglobin ABG Oxyhemoglobin VBG pH ABG Sodium ABG Potassium ABG Glucose Oxyhemoglobin Sodium 132 L Potassium Chloride 95.1 L Carbon Dioxide 21 L BUN 95 H Creatinine 2.5 H Glucose 108 H POC Glucose 122 H Lactic Acid Calcium Ferritin AST Alkaline Phosphatase Magnesium Lactate Dehydrogenase Total Creatine Kinase CK-MB (CK-2) C-Reactive Protein Total Protein Albumin Troponin T HDL Cholesterol Arterial Blood Glucose Urine WBC (Auto) Urine Creatinine Urine Total Protein Phenytoin Coronavirus (PCR) Crossmatch 07/25/20 07/25/20 07/26/20 18:11 23:24 04:22 WBC RBC Hgb Hct MCHC RDW Lymph % (Auto) [place] % (Auto) Eos % (Auto) Lymph # [place] # Lymph # (Auto) [place] # (Auto) Eos # (Auto) Seg Neutrophils % Seg Neuts % (Manual) Lymphocytes % (Manual) Seg Neutrophils # Seg Neutrophils # Man Lymphocytes # (Manual) Monocytes % (Manual) Eosinophils % (Manual) Monocytes # (Manual) Eosinophils # (Manual) D-Dimer Heparin Anti-Xa Level ABG pH POC ABG pCO2 POC ABG pO2 ABG pO2 ABG HCO3 ABG O2 Saturation ABG Base Excess ABG Hemoglobin ABG Oxyhemoglobin VBG pH ABG Sodium ABG Potassium ABG Glucose Oxyhemoglobin Sodium 132 L Potassium Chloride 96.2 L Carbon Dioxide 21 L BUN 99 H Creatinine 2.5 H Glucose 132 H POC Glucose 137 H 117 H Lactic Acid Calcium 8.2 L Ferritin AST Alkaline Phosphatase Magnesium Lactate Dehydrogenase Total Creatine Kinase CK-MB (CK-2) C-Reactive Protein Total Protein Albumin Troponin T HDL Cholesterol Arterial Blood Glucose Urine WBC (Auto) Urine Creatinine Urine Total Protein Phenytoin Coronavirus (PCR) Crossmatch 07/26/20 07/26/20 07/26/20 05:58 12:21 17:31 WBC RBC Hgb Hct MCHC RDW Lymph % (Auto) [place] % (Auto) Eos % (Auto) Lymph # [place] # Lymph # (Auto) [place] # (Auto) Eos # (Auto) Seg Neutrophils % Seg Neuts % (Manual) Lymphocytes % (Manual) Seg Neutrophils # Seg Neutrophils # Man Lymphocytes # (Manual) Monocytes % (Manual) Eosinophils % (Manual) Monocytes # (Manual) Eosinophils # (Manual) D-Dimer Heparin Anti-Xa Level ABG pH POC ABG pCO2 POC ABG pO2 ABG pO2 ABG HCO3 ABG O2 Saturation ABG Base Excess ABG Hemoglobin ABG Oxyhemoglobin VBG pH ABG Sodium ABG Potassium ABG Glucose Oxyhemoglobin Sodium Potassium Chloride Carbon Dioxide BUN Creatinine Glucose POC Glucose 110 H 142 H 180 H Lactic Acid Calcium Ferritin AST Alkaline Phosphatase Magnesium Lactate Dehydrogenase Total Creatine Kinase CK-MB (CK-2) C-Reactive Protein Total Protein Albumin Troponin T HDL Cholesterol Arterial Blood Glucose Urine WBC (Auto) Urine Creatinine Urine Total Protein Phenytoin Coronavirus (PCR) Crossmatch 07/26/20 07/27/20 07/27/20 23:36 03:36 05:36 WBC RBC 2.49 L Hgb 7.3 L Hct 22.2 L MCHC RDW 17.2 H Lymph % (Auto) 11.0 L [place] % (Auto) 11.7 H Eos % (Auto) Lymph # [place] # Lymph # (Auto) 0.8 L [place] # (Auto) 0.9 H Eos # (Auto) Seg Neutrophils % 72.3 H Seg Neuts % (Manual) Lymphocytes % (Manual) Seg Neutrophils # Seg Neutrophils # Man Lymphocytes # (Manual) Monocytes % (Manual) Eosinophils % (Manual) Monocytes # (Manual) Eosinophils # (Manual) D-Dimer Heparin Anti-Xa Level ABG pH POC ABG pCO2 POC ABG pO2 ABG pO2 ABG HCO3 ABG O2 Saturation ABG Base Excess ABG Hemoglobin ABG Oxyhemoglobin VBG pH ABG Sodium ABG Potassium ABG Glucose Oxyhemoglobin Sodium Potassium Chloride Carbon Dioxide BUN Creatinine Glucose POC Glucose 162 H 118 H Lactic Acid Calcium Ferritin AST Alkaline Phosphatase Magnesium Lactate Dehydrogenase Total Creatine Kinase CK-MB (CK-2) C-Reactive Protein Total Protein Albumin Troponin T HDL Cholesterol Arterial Blood Glucose Urine WBC (Auto) Urine Creatinine Urine Total Protein Phenytoin Coronavirus (PCR) Crossmatch 07/27/20 07/27/20 07/27/20 05:36 12:19 17:36 WBC RBC Hgb Hct MCHC RDW Lymph % (Auto) [place] % (Auto) Eos % (Auto) Lymph # [place] # Lymph # (Auto) [place] # (Auto) Eos # (Auto) Seg Neutrophils % Seg Neuts % (Manual) Lymphocytes % (Manual) Seg Neutrophils # Seg Neutrophils # Man Lymphocytes # (Manual) Monocytes % (Manual) Eosinophils % (Manual) Monocytes # (Manual) Eosinophils # (Manual) D-Dimer Heparin Anti-Xa Level ABG pH POC ABG pCO2 POC ABG pO2 ABG pO2 ABG HCO3 ABG O2 Saturation ABG Base Excess ABG Hemoglobin ABG Oxyhemoglobin VBG pH ABG Sodium ABG Potassium ABG Glucose Oxyhemoglobin Sodium 135 L Potassium 5.3 H Chloride Carbon Dioxide 21 L BUN 103 H Creatinine 2.6 H Glucose 113 H POC Glucose 131 H 151 H Lactic Acid Calcium 8.1 L Ferritin AST Alkaline Phosphatase Magnesium Lactate Dehydrogenase Total Creatine Kinase CK-MB (CK-2) C-Reactive Protein Total Protein Albumin Troponin T HDL Cholesterol Arterial Blood Glucose Urine WBC (Auto) Urine Creatinine Urine Total Protein Phenytoin Coronavirus (PCR) Crossmatch 07/27/20 07/28/20 07/28/20 23:29 04:30 04:30 WBC RBC 2.50 L Hgb 7.3 L Hct 22.2 L MCHC RDW 17.3 H Lymph % (Auto) 8.7 L [place] % (Auto) 8.3 H Eos % (Auto) Lymph # [place] # Lymph # (Auto) 0.7 L [place] # (Auto) Eos # (Auto) Seg Neutrophils % 79.1 H Seg Neuts % (Manual) Lymphocytes % (Manual) Seg Neutrophils # Seg Neutrophils # Man Lymphocytes # (Manual) Monocytes % (Manual) Eosinophils % (Manual) Monocytes # (Manual) Eosinophils # (Manual) D-Dimer Heparin Anti-Xa Level ABG pH POC ABG pCO2 POC ABG pO2 ABG pO2 ABG HCO3 ABG O2 Saturation ABG Base Excess ABG Hemoglobin ABG Oxyhemoglobin VBG pH ABG Sodium ABG Potassium ABG Glucose Oxyhemoglobin Sodium 135 L Potassium 5.2 H Chloride 96.8 L Carbon Dioxide 20 L BUN 107 H Creatinine 2.9 H Glucose POC Glucose 124 H Lactic Acid Calcium 8.2 L Ferritin AST Alkaline Phosphatase Magnesium 2.70 H Lactate Dehydrogenase Total Creatine Kinase CK-MB (CK-2) C-Reactive Protein Total Protein Albumin Troponin T HDL Cholesterol Arterial Blood Glucose Urine WBC (Auto) Urine Creatinine Urine Total Protein Phenytoin Coronavirus (PCR) Crossmatch 07/28/20 07/29/20 07/29/20 17:35 00:11 06:45 WBC RBC Hgb Hct MCHC RDW Lymph % (Auto) [place] % (Auto) Eos % (Auto) Lymph # [place] # Lymph # (Auto) [place] # (Auto) Eos # (Auto) Seg Neutrophils % Seg Neuts % (Manual) Lymphocytes % (Manual) Seg Neutrophils # Seg Neutrophils # Man Lymphocytes # (Manual) Monocytes % (Manual) Eosinophils % (Manual) Monocytes # (Manual) Eosinophils # (Manual) D-Dimer Heparin Anti-Xa Level ABG pH POC ABG pCO2 POC ABG pO2 ABG pO2 ABG HCO3 ABG O2 Saturation ABG Base Excess ABG Hemoglobin ABG Oxyhemoglobin VBG pH ABG Sodium ABG Potassium ABG Glucose Oxyhemoglobin Sodium Potassium Chloride Carbon Dioxide BUN Creatinine Glucose POC Glucose 146 H 143 H 179 H Lactic Acid Calcium Ferritin AST Alkaline Phosphatase Magnesium Lactate Dehydrogenase Total Creatine Kinase CK-MB (CK-2) C-Reactive Protein Total Protein Albumin Troponin T HDL Cholesterol Arterial Blood Glucose Urine WBC (Auto) Urine Creatinine Urine Total Protein Phenytoin Coronavirus (PCR) Crossmatch 07/29/20 07/29/20 07/29/20 11:54 13:01 13:01 WBC RBC 2.40 L Hgb 7.1 L Hct 20.9 L MCHC RDW 17.5 H Lymph % (Auto) [place] % (Auto) Eos % (Auto) Lymph # [place] # Lymph # (Auto) [place] # (Auto) Eos # (Auto) Seg Neutrophils % Seg Neuts % (Manual) 86.0 H Lymphocytes % (Manual) 6.0 L Seg Neutrophils # Seg Neutrophils # Man 8.9 H Lymphocytes # (Manual) 0.6 L Monocytes % (Manual) 8.0 H Eosinophils % (Manual) Monocytes # (Manual) Eosinophils # (Manual) D-Dimer Heparin Anti-Xa Level ABG pH POC ABG pCO2 POC ABG pO2 ABG pO2 ABG HCO3 ABG O2 Saturation ABG Base Excess ABG Hemoglobin ABG Oxyhemoglobin VBG pH ABG Sodium ABG Potassium ABG Glucose Oxyhemoglobin Sodium 129 L Potassium Chloride 92.9 L Carbon Dioxide BUN 112 H Creatinine 3.0 H Glucose 142 H POC Glucose 170 H Lactic Acid Calcium 7.9 L Ferritin AST Alkaline Phosphatase Magnesium Lactate Dehydrogenase Total Creatine Kinase CK-MB (CK-2) C-Reactive Protein Total Protein Albumin Troponin T HDL Cholesterol Arterial Blood Glucose Urine WBC (Auto) Urine Creatinine Urine Total Protein Phenytoin Coronavirus (PCR) Crossmatch 07/29/20 07/30/20 07/30/20 22:45 05:01 11:45 WBC RBC Hgb Hct MCHC RDW Lymph % (Auto) [place] % (Auto) Eos % (Auto) Lymph # [place] # Lymph # (Auto) [place] # (Auto) Eos # (Auto) Seg Neutrophils % Seg Neuts % (Manual) Lymphocytes % (Manual) Seg Neutrophils # Seg Neutrophils # Man Lymphocytes # (Manual) Monocytes % (Manual) Eosinophils % (Manual) Monocytes # (Manual) Eosinophils # (Manual) D-Dimer Heparin Anti-Xa Level ABG pH POC ABG pCO2 POC ABG pO2 ABG pO2 ABG HCO3 ABG O2 Saturation ABG Base Excess ABG Hemoglobin ABG Oxyhemoglobin VBG pH ABG Sodium ABG Potassium ABG Glucose Oxyhemoglobin Sodium Potassium Chloride Carbon Dioxide BUN Creatinine Glucose POC Glucose 129 H 150 H 130 H Lactic Acid Calcium Ferritin AST Alkaline Phosphatase Magnesium Lactate Dehydrogenase Total Creatine Kinase CK-MB (CK-2) C-Reactive Protein Total Protein Albumin Troponin T HDL Cholesterol Arterial Blood Glucose Urine WBC (Auto) Urine Creatinine Urine Total Protein Phenytoin Coronavirus (PCR) Crossmatch 07/30/20 07/30/20 07/30/20 17:54 21:26 23:58 WBC RBC Hgb Hct MCHC RDW Lymph % (Auto) [place] % (Auto) Eos % (Auto) Lymph # [place] # Lymph # (Auto) [place] # (Auto) Eos # (Auto) Seg Neutrophils % Seg Neuts % (Manual) Lymphocytes % (Manual) Seg Neutrophils # Seg Neutrophils # Man Lymphocytes # (Manual) Monocytes % (Manual) Eosinophils % (Manual) Monocytes # (Manual) Eosinophils # (Manual) D-Dimer Heparin Anti-Xa Level ABG pH POC ABG pCO2 POC ABG pO2 ABG pO2 ABG HCO3 ABG O2 Saturation ABG Base Excess ABG Hemoglobin ABG Oxyhemoglobin VBG pH ABG Sodium ABG Potassium ABG Glucose Oxyhemoglobin Sodium Potassium Chloride Carbon Dioxide BUN Creatinine Glucose POC Glucose 143 H 124 H 142 H Lactic Acid Calcium Ferritin AST Alkaline Phosphatase Magnesium Lactate Dehydrogenase Total Creatine Kinase CK-MB (CK-2) C-Reactive Protein Total Protein Albumin Troponin T HDL Cholesterol Arterial Blood Glucose Urine WBC (Auto) Urine Creatinine Urine Total Protein Phenytoin Coronavirus (PCR) Crossmatch 07/31/20 07/31/20 07/31/20 05:43 11:35 18:07 WBC RBC Hgb Hct MCHC RDW Lymph % (Auto) [place] % (Auto) Eos % (Auto) Lymph # [place] # Lymph # (Auto) [place] # (Auto) Eos # (Auto) Seg Neutrophils % Seg Neuts % (Manual) Lymphocytes % (Manual) Seg Neutrophils # Seg Neutrophils # Man Lymphocytes # (Manual) Monocytes % (Manual) Eosinophils % (Manual) Monocytes # (Manual) Eosinophils # (Manual) D-Dimer Heparin Anti-Xa Level ABG pH POC ABG pCO2 POC ABG pO2 ABG pO2 ABG HCO3 ABG O2 Saturation ABG Base Excess ABG Hemoglobin ABG Oxyhemoglobin VBG pH ABG Sodium ABG Potassium ABG Glucose Oxyhemoglobin Sodium Potassium Chloride Carbon Dioxide BUN Creatinine Glucose POC Glucose 152 H 179 H 129 H Lactic Acid Calcium Ferritin AST Alkaline Phosphatase Magnesium Lactate Dehydrogenase Total Creatine Kinase CK-MB (CK-2) C-Reactive Protein Total Protein Albumin Troponin T HDL Cholesterol Arterial Blood Glucose Urine WBC (Auto) Urine Creatinine Urine Total Protein Phenytoin Coronavirus (PCR) Crossmatch 07/31/20 07/31/20 08/01/20 21:30 22:12 00:25 WBC RBC Hgb Hct MCHC RDW Lymph % (Auto) [place] % (Auto) Eos % (Auto) Lymph # [place] # Lymph # (Auto) [place] # (Auto) Eos # (Auto) Seg Neutrophils % Seg Neuts % (Manual) Lymphocytes % (Manual) Seg Neutrophils # Seg Neutrophils # Man Lymphocytes # (Manual) Monocytes % (Manual) Eosinophils % (Manual) Monocytes # (Manual) Eosinophils # (Manual) D-Dimer Heparin Anti-Xa Level ABG pH POC ABG pCO2 POC ABG pO2 ABG pO2 ABG HCO3 ABG O2 Saturation ABG Base Excess ABG Hemoglobin ABG Oxyhemoglobin VBG pH ABG Sodium ABG Potassium ABG Glucose Oxyhemoglobin Sodium Potassium Chloride Carbon Dioxide BUN Creatinine Glucose POC Glucose 143 H 122 H 134 H Lactic Acid Calcium Ferritin AST Alkaline Phosphatase Magnesium Lactate Dehydrogenase Total Creatine Kinase CK-MB (CK-2) C-Reactive Protein Total Protein Albumin Troponin T HDL Cholesterol Arterial Blood Glucose Urine WBC (Auto) Urine Creatinine Urine Total Protein Phenytoin Coronavirus (PCR) Crossmatch 08/01/20 08/01/20 08/01/20 04:43 05:41 12:23 WBC RBC Hgb Hct MCHC RDW Lymph % (Auto) [place] % (Auto) Eos % (Auto) Lymph # [place] # Lymph # (Auto) [place] # (Auto) Eos # (Auto) Seg Neutrophils % Seg Neuts % (Manual) Lymphocytes % (Manual) Seg Neutrophils # Seg Neutrophils # Man Lymphocytes # (Manual) Monocytes % (Manual) Eosinophils % (Manual) Monocytes # (Manual) Eosinophils # (Manual) D-Dimer Heparin Anti-Xa Level ABG pH POC ABG pCO2 POC ABG pO2 ABG pO2 ABG HCO3 ABG O2 Saturation ABG Base Excess ABG Hemoglobin ABG Oxyhemoglobin VBG pH ABG Sodium ABG Potassium ABG Glucose Oxyhemoglobin Sodium 128 L Potassium 5.8 H Chloride 90.5 L Carbon Dioxide 19 L BUN 122 H Creatinine 3.4 H Glucose 124 H POC Glucose 130 H 128 H Lactic Acid Calcium 8.0 L Ferritin AST Alkaline Phosphatase Magnesium Lactate Dehydrogenase Total Creatine Kinase CK-MB (CK-2) C-Reactive Protein Total Protein Albumin Troponin T HDL Cholesterol Arterial Blood Glucose Urine WBC (Auto) Urine Creatinine Urine Total Protein Phenytoin Coronavirus (PCR) Crossmatch 08/01/20 08/02/20 08/02/20 17:28 00:06 05:32 WBC RBC Hgb Hct MCHC RDW Lymph % (Auto) [place] % (Auto) Eos % (Auto) Lymph # [place] # Lymph # (Auto) [place] # (Auto) Eos # (Auto) Seg Neutrophils % Seg Neuts % (Manual) Lymphocytes % (Manual) Seg Neutrophils # Seg Neutrophils # Man Lymphocytes # (Manual) Monocytes % (Manual) Eosinophils % (Manual) Monocytes # (Manual) Eosinophils # (Manual) D-Dimer Heparin Anti-Xa Level ABG pH POC ABG pCO2 POC ABG pO2 ABG pO2 ABG HCO3 ABG O2 Saturation ABG Base Excess ABG Hemoglobin ABG Oxyhemoglobin VBG pH ABG Sodium ABG Potassium ABG Glucose Oxyhemoglobin Sodium Potassium Chloride Carbon Dioxide BUN Creatinine Glucose POC Glucose 121 H 128 H 177 H Lactic Acid Calcium Ferritin AST Alkaline Phosphatase Magnesium Lactate Dehydrogenase Total Creatine Kinase CK-MB (CK-2) C-Reactive Protein Total Protein Albumin Troponin T HDL Cholesterol Arterial Blood Glucose Urine WBC (Auto) Urine Creatinine Urine Total Protein Phenytoin Coronavirus (PCR) Crossmatch 08/02/20 08/02/20 08/03/20 11:25 12:34 00:08 WBC RBC Hgb Hct MCHC RDW Lymph % (Auto) [place] % (Auto) Eos % (Auto) Lymph # [place] # Lymph # (Auto) [place] # (Auto) Eos # (Auto) Seg Neutrophils % Seg Neuts % (Manual) Lymphocytes % (Manual) Seg Neutrophils # Seg Neutrophils # Man Lymphocytes # (Manual) Monocytes % (Manual) Eosinophils % (Manual) Monocytes # (Manual) Eosinophils # (Manual) D-Dimer Heparin Anti-Xa Level ABG pH 7.344 L POC ABG pCO2 POC ABG pO2 ABG pO2 101.1 H ABG HCO3 ABG O2 Saturation ABG Base Excess -4.5 L ABG Hemoglobin 6.6 L ABG Oxyhemoglobin VBG pH ABG Sodium ABG Potassium ABG Glucose Oxyhemoglobin Sodium Potassium Chloride Carbon Dioxide BUN Creatinine Glucose POC Glucose 196 H 141 H Lactic Acid Calcium Ferritin AST Alkaline Phosphatase Magnesium Lactate Dehydrogenase Total Creatine Kinase CK-MB (CK-2) C-Reactive Protein Total Protein Albumin Troponin T HDL Cholesterol Arterial Blood Glucose Urine WBC (Auto) Urine Creatinine Urine Total Protein Phenytoin Coronavirus (PCR) Crossmatch 08/03/20 08/03/20 08/03/20 04:38 04:38 04:38 WBC 14.3 H RBC 2.42 L Hgb 7.0 L Hct 21.5 L MCHC RDW 18.1 H Lymph % (Auto) [place] % (Auto) Eos % (Auto) Lymph # [place] # Lymph # (Auto) [place] # (Auto) Eos # (Auto) Seg Neutrophils % Seg Neuts % (Manual) Lymphocytes % (Manual) Seg Neutrophils # Seg Neutrophils # Man Lymphocytes # (Manual) Monocytes % (Manual) Eosinophils % (Manual) Monocytes # (Manual) Eosinophils # (Manual) D-Dimer Heparin Anti-Xa Level ABG pH POC ABG pCO2 POC ABG pO2 ABG pO2 ABG HCO3 ABG O2 Saturation ABG Base Excess ABG Hemoglobin ABG Oxyhemoglobin VBG pH ABG Sodium ABG Potassium ABG Glucose Oxyhemoglobin Sodium 130 L Potassium Chloride 90.1 L Carbon Dioxide 20 L BUN 105 H Creatinine 3.1 H Glucose 115 H POC Glucose Lactic Acid 0.40 L Calcium 8.2 L Ferritin AST Alkaline Phosphatase Magnesium Lactate Dehydrogenase Total Creatine Kinase CK-MB (CK-2) C-Reactive Protein Total Protein Albumin Troponin T HDL Cholesterol Arterial Blood Glucose Urine WBC (Auto) Urine Creatinine Urine Total Protein Phenytoin Coronavirus (PCR) Crossmatch 08/03/20 08/03/20 08/03/20 05:33 12:04 17:51 WBC RBC Hgb Hct MCHC RDW Lymph % (Auto) [place] % (Auto) Eos % (Auto) Lymph # [place] # Lymph # (Auto) [place] # (Auto) Eos # (Auto) Seg Neutrophils % Seg Neuts % (Manual) Lymphocytes % (Manual) Seg Neutrophils # Seg Neutrophils # Man Lymphocytes # (Manual) Monocytes % (Manual) Eosinophils % (Manual) Monocytes # (Manual) Eosinophils # (Manual) D-Dimer Heparin Anti-Xa Level ABG pH POC ABG pCO2 POC ABG pO2 ABG pO2 ABG HCO3 ABG O2 Saturation ABG Base Excess ABG Hemoglobin ABG Oxyhemoglobin VBG pH ABG Sodium ABG Potassium ABG Glucose Oxyhemoglobin Sodium Potassium Chloride Carbon Dioxide BUN Creatinine Glucose POC Glucose 117 H 115 H 123 H Lactic Acid Calcium Ferritin AST Alkaline Phosphatase Magnesium Lactate Dehydrogenase Total Creatine Kinase CK-MB (CK-2) C-Reactive Protein Total Protein Albumin Troponin T HDL Cholesterol Arterial Blood Glucose Urine WBC (Auto) Urine Creatinine Urine Total Protein Phenytoin Coronavirus (PCR) Crossmatch 08/03/20 08/04/20 08/04/20 23:25 01:41 05:34 WBC RBC 2.20 L Hgb 6.5 L Hct 19.5 L* MCHC RDW 18.5 H Lymph % (Auto) 9.2 L [place] % (Auto) 9.8 H Eos % (Auto) Lymph # [place] # Lymph # (Auto) 0.8 L [place] # (Auto) Eos # (Auto) Seg Neutrophils % 77.7 H Seg Neuts % (Manual) Lymphocytes % (Manual) Seg Neutrophils # Seg Neutrophils # Man Lymphocytes # (Manual) Monocytes % (Manual) Eosinophils % (Manual) Monocytes # (Manual) Eosinophils # (Manual) D-Dimer Heparin Anti-Xa Level ABG pH POC ABG pCO2 POC ABG pO2 ABG pO2 ABG HCO3 ABG O2 Saturation ABG Base Excess ABG Hemoglobin ABG Oxyhemoglobin VBG pH ABG Sodium ABG Potassium ABG Glucose Oxyhemoglobin Sodium Potassium Chloride Carbon Dioxide BUN Creatinine Glucose POC Glucose 122 H 112 H Lactic Acid Calcium Ferritin AST Alkaline Phosphatase Magnesium Lactate Dehydrogenase Total Creatine Kinase CK-MB (CK-2) C-Reactive Protein Total Protein Albumin Troponin T HDL Cholesterol Arterial Blood Glucose Urine WBC (Auto) Urine Creatinine Urine Total Protein Phenytoin Coronavirus (PCR) Crossmatch 08/04/20 08/04/20 08/05/20 12:19 17:42 00:25 WBC RBC Hgb Hct MCHC RDW Lymph % (Auto) [place] % (Auto) Eos % (Auto) Lymph # [place] # Lymph # (Auto) [place] # (Auto) Eos # (Auto) Seg Neutrophils % Seg Neuts % (Manual) Lymphocytes % (Manual) Seg Neutrophils # Seg Neutrophils # Man Lymphocytes # (Manual) Monocytes % (Manual) Eosinophils % (Manual) Monocytes # (Manual) Eosinophils # (Manual) D-Dimer Heparin Anti-Xa Level ABG pH POC ABG pCO2 POC ABG pO2 ABG pO2 ABG HCO3 ABG O2 Saturation ABG Base Excess ABG Hemoglobin ABG Oxyhemoglobin VBG pH ABG Sodium ABG Potassium ABG Glucose Oxyhemoglobin Sodium Potassium Chloride Carbon Dioxide BUN Creatinine Glucose POC Glucose 108 H 113 H 119 H Lactic Acid Calcium Ferritin AST Alkaline Phosphatase Magnesium Lactate Dehydrogenase Total Creatine Kinase CK-MB (CK-2) C-Reactive Protein Total Protein Albumin Troponin T HDL Cholesterol Arterial Blood Glucose Urine WBC (Auto) Urine Creatinine Urine Total Protein Phenytoin Coronavirus (PCR) Crossmatch Chest x-ray: image reviewed Allied health notes reviewed: RT
[2020-08-05] MEDS: PHENYTOIN IV SCH ×3 (05:18→21:34)
[2020-08-05] MEDS: SODIUM CHLORIDE 0.9% IV SCH ×3 (05:18→21:34)
[2020-08-05] MEDS: HEPARIN 5,000 UNIT/1 ML VIAL SUB-Q SCH ×3 (05:18→21:24)
[2020-08-05] MEDS ORDERED: SODIUM CHLORIDE 0.9% 500 ML 500 ML IV ONE (05:29)
[2020-08-05 06:57] LABS: Basophils # (Auto) 0.1 K/mm3 (0.0-0.1); Basophils % (Auto) 0.8 % (0.0-1.8); Eosinophils # (Auto) 0.2 K/mm3 (0.0-0.4); Eosinophils % (Auto) 2.6 % (0.0-4.3); Hemoglobin 6.2 gm/dl (10.1-14.3); Lymphocytes # (Auto) 0.8 K/mm3 (1.2-5.4); Mean Corpuscular HGB Conc 33 % (30-34); Mean Corpuscular Volume 89 fl (79-97); Monocytes # (Auto) 0.6 K/mm3 (0.0-0.8); Monocytes % (Auto) 8.5 % (0.0-7.3); Platelet Count 410 K/mm3 (140-440); Red Blood Count 2.13 M/mm3 (3.65-5.03); Red Cell Distribution Width 18.7 % (13.2-15.2)
[2020-08-05 07:19] LABS: Albumin 2.2 g/dL (3.9-5); Calcium 7.5 mg/dL (8.4-10.2)
[2020-08-05 07:25] LABS: Hematocrit 18.9 % (30.3-42.9)
[2020-08-05] MEDS: hydrALAZINE 100 MG TAB PO SCH ×3 (07:30→20:09)
[2020-08-05] MEDS: GLYCOPYRROLATE 2 MG TAB PO SCH ×3 (08:11→21:17)
--- NOTE | 2020-08-05 09:08 | Progress Note ---
Assessment and Plan Acute hypoxemic respiratory failure on MVS Coronavirus-19 infection. Bilateral pulmonary infiltrates, bilateral pneumonia plus likely element of Pulmonary edema. Bilateral pulmonary edema. Bilateral pleural effusions. History of congestive heart failure. Morbid obesity. History of pulmonary hypertension. History of hypertension. Diabetes. Obesity hypoventilation syndrome. Elevated serum inflammatory markers to include D-dimers and LDH levels. Hyperkalemia at presentation. Metabolic acidosis. Oropharyngeal dysphagia. (AMS remains rate limiting factor to safe extubation; she will need a tracheo stomy) - continue NGT to LIS - await G.I. evaluation - wean vasopressors for target MAP > 65 mmHg - continue HD/UF for toxin and volume clearance - AM CXR pending - continue care as below otherwise; - prn CXR's and ABG's at this point - repeat EEG next per neurology rec's - AED's per neurology (Keppra & Dilantin changed to IV dosing) - surgery evaluation ongoing for trach +/- PEG (await negative COVID PCR result) - continue Modafinil re: lethargy / somnolence - continue daytime PSV trials as tolerated - Daily SAT and SBT assessment as tolerated - continue to wean supplemental oxygen for target O2 sat's > 92% acutely - VAP bundle addressed - continue lung protective strategies - continue bronchodilators with pulmonary hygiene per RT - wean per pulmonary driven protocols otherwise - continue accuchecks resumed with glycemic control per SSI (While critically ill target blood glucose of 140-180 mg/dL; avoid hypoglycemia) - sedation prn for target RASS 0 to -1 - continue to avoid benzodiazepine's, reduce the possibility of delirium - AB's per ID rec's (following clinically of AB's at this time) - continue enteral nutrition at goal rate as tolerated - AED's per neurology - prn analgesia per CPOT score - Maintenance of sleep-wake cycle, avoid delirium - continue enteral nutritional support at goal rate as tolerated - G.I. & VTE prophylaxis with heparin & famotidine - PT/OT/ROM exercises - continue mobility protocols for pressure ulcer prophylaxis - Monitor hemodynamics closely - continue other care per attending / other consultants - discharge planning ongoing concurrently (LTAC evaluation is appropriate) .... Re-evaluate in am & prn; will continue aggressive care until clear family wants to decelerate CONDITION: CRITICAL PROGNOSIS: GUARDED CODE STATUS: FULL CODE The high probability of a clinically significant, sudden or life-threatening deterioration of the [respiratory, cardiovascular, GI & neurologic] system(s) required my full and direct attention, intervention and personal management. The aggregate critical care time was [35] minutes without overlap. Time includes spent on; [x] Data Review and interpretation [x] Patient assessment and monitoring of vital signs [x] Documentation [x] Medication orders and management Subjective Date of service: 08/04/20 Principal diagnosis: Ac hypoxemic resp failure; COVID-19; pneumonia; CHF; Pulm HTN; OHS; DM II Interval history: LATE ENTRY NOTE FOR DOS (08/04/2020) (EMR was down) Patient is seen today for: Ac hypoxemic resp failure; Coronavirus-19 infection; pneumonia; Pulmonary edema; Bilateral pleural effusions; CHF; Morbid obesity; pulmonary hypertension; OHS; DM II Seen and examined at bedside; 24hour events reviewed; nursing and respiratory care staff consulted; no adverse overnight events reported to me; resting peacefully in bed; remains on MVS; AMS is persistent; tolerated dialysis and approx 3Kg pulled; no emesis or overt aspiration; CT abd/pelvis negative for bowel obstruction; NGT remains to LIS Objective Vital Signs - 12hr 08/04/20 08/04/20 08/04/20 21:15 21:30 21:46 Temperature Pulse Rate 58 L 59 L 58 L Pulse Rate [ From Monitor] Respiratory 14 11 L 17 Rate Blood Pressure 150/51 160/50 141/45 O2 Sat by Pulse 99 99 99 Oximetry 08/04/20 08/04/20 08/04/20 22:00 22:15 22:18 Temperature Pulse Rate 59 L 59 L 58 L Pulse Rate [ From Monitor] Respiratory 19 16 14 Rate Blood Pressure 132/39 146/52 146/52 O2 Sat by Pulse 98 98 98 Oximetry 08/04/20 08/04/20 08/04/20 22:30 22:46 23:00 Temperature Pulse Rate 60 58 L 61 Pulse Rate [ From Monitor] Respiratory 16 14 10 L Rate Blood Pressure 137/45 142/44 149/56 O2 Sat by Pulse 98 99 99 Oximetry 08/04/20 08/04/20 08/04/20 23:16 23:30 23:46 Temperature Pulse Rate 61 60 60 Pulse Rate [ From Monitor] Respiratory 14 11 L 19 Rate Blood Pressure 159/41 161/50 168/48 O2 Sat by Pulse 99 98 99 Oximetry 08/05/20 08/05/20 08/05/20 00:00 00:08 00:16 Temperature 97.9 F Pulse Rate 61 62 60 Pulse Rate [ 58 L From Monitor] Respiratory 17 15 Rate Blood Pressure 148/43 148/43 149/43 O2 Sat by Pulse 97 98 99 Oximetry 08/05/20 08/05/20 08/05/20 00:30 00:46 01:00 Temperature Pulse Rate 59 L 59 L 61 Pulse Rate [ From Monitor] Respiratory 13 14 15 Rate Blood Pressure 154/43 151/42 154/41 O2 Sat by Pulse 98 99 99 Oximetry 08/05/20 08/05/20 08/05/20 01:15 01:30 01:45 Temperature Pulse Rate 61 61 61 Pulse Rate [ From Monitor] Respiratory 14 15 14 Rate Blood Pressure 146/52 156/46 153/61 O2 Sat by Pulse 98 99 97 Oximetry 08/05/20 08/05/20 08/05/20 02:00 02:15 02:30 Temperature Pulse Rate 58 L 61 62 Pulse Rate [ From Monitor] Respiratory 16 19 19 Rate Blood Pressure 151/53 147/57 142/52 O2 Sat by Pulse 97 98 99 Oximetry 08/05/20 08/05/20 08/05/20 02:45 03:00 03:15 Temperature Pulse Rate 61 61 78 Pulse Rate [ From Monitor] Respiratory 13 16 15 Rate Blood Pressure 144/51 150/54 163/74 O2 Sat by Pulse 99 99 97 Oximetry 08/05/20 08/05/20 08/05/20 03:30 03:45 04:00 Temperature 97.3 F L Pulse Rate 75 77 77 Pulse Rate [ 77 From Monitor] Respiratory 17 17 18 Rate Blood Pressure 161/49 163/58 152/67 O2 Sat by Pulse 98 97 96 Oximetry 08/05/20 08/05/20 08/05/20 04:15 04:30 04:33 Temperature Pulse Rate 76 76 77 Pulse Rate [ From Monitor] Respiratory 14 17 Rate Blood Pressure 161/52 155/43 155/43 O2 Sat by Pulse 97 97 97 Oximetry 08/05/20 08/05/20 08/05/20 04:45 05:00 05:15 Temperature Pulse Rate 77 78 77 Pulse Rate [ From Monitor] Respiratory 16 20 15 Rate Blood Pressure 162/54 151/51 159/57 O2 Sat by Pulse 97 97 97 Oximetry 08/05/20 08/05/20 08/05/20 05:30 05:46 06:00 Temperature Pulse Rate 74 59 L 61 Pulse Rate [ From Monitor] Respiratory 20 18 19 Rate Blood Pressure 131/41 135/65 O2 Sat by Pulse 97 98 98 Oximetry 08/05/20 08/05/20 08/05/20 06:15 06:30 06:45 Temperature Pulse Rate 75 76 74 Pulse Rate [ From Monitor] Respiratory 18 17 18 Rate Blood Pressure 148/54 149/57 146/44 O2 Sat by Pulse 97 98 98 Oximetry 08/05/20 08/05/20 08/05/20 07:00 07:20 07:30 Temperature Pulse Rate 61 62 63 Pulse Rate [ From Monitor] Respiratory 18 17 18 Rate Blood Pressure 148/54 133/49 O2 Sat by Pulse 99 99 98 Oximetry 08/05/20 08/05/20 08/05/20 07:45 08:00 08:15 Temperature 98.0 F Pulse Rate 61 61 61 Pulse Rate [ 60 From Monitor] Respiratory 16 18 17 Rate Blood Pressure 137/53 130/50 136/49 O2 Sat by Pulse 99 99 99 Oximetry Constitutional: appears uncomfortable, other (elderly obese female with mildly increased resp effort at rest on MVS) Eyes: non-icteric ENT: oropharynx dry, other (ETT 23-24 cm AYAN) Neck: supple, no lymphadenopathy, no JVD Effort: mildly labored Ascultation: Bilateral: diminished breath sounds, rhonchi Percussion: Bilateral: not dull Cardiovascular: regular rate and rhythm, other (S1,S2) Gastrointestinal: normoactive bowel sounds, soft, non-tender, non-distended Integumentary: normal Extremities: no cyanosis, pink and warm, pulses normal, no ischemia or petechiae, edema (pedal and peripheral ) Neurologic: pupils equal and round, unable to assess, other (lethargic to obtu nded) Psychiatric: other (unable to assess re: AMS) CBC and BMP: 08/05/20 05:35 08/05/20 05:35 ABG, PT/INR, D-dimer: ABG ABG pH 7.344 pH Units (7.350-7.450) L 08/02/20 11:25 POC ABG pCO2 44.1 mmHg (32.0-48.0) 07/18/20 04:24 ABG pCO2 39.0 mm Hg 08/02/20 11:25 POC ABG pO2 86.8 mmHg (83-108) 07/18/20 04:24 ABG pO2 101.1 mm Hg (80.0-90.0) H 08/02/20 11:25 POC ABG HCO3 25.6 07/18/20 04:24 ABG O2 Saturation 97.5 % (95.0-99.0) 08/02/20 11:25 PT/INR, D-dimer PT 14.2 Sec. (12.2-14.9) 05/29/20 15:10 INR 1.08 (0.87-1.13) 05/29/20 15:10 D-Dimer 2310.15 ng/mlDDU (0-234) H 06/29/20 14:45 Abnormal lab findings: Abnormal Labs 05/28/20 05/28/20 05/28/20 13:29 13:47 13:47 WBC RBC Hgb Hct MCHC RDW 15.3 H Lymph % (Auto) [place] % (Auto) Eos % (Auto) Lymph # [place] # Lymph # (Auto) [place] # (Auto) Eos # (Auto) Seg Neutrophils % Seg Neuts % (Manual) Lymphocytes % (Manual) Seg Neutrophils # Seg Neutrophils # Man Lymphocytes # (Manual) Monocytes % (Manual) Eosinophils % (Manual) Monocytes # (Manual) Eosinophils # (Manual) D-Dimer Heparin Anti-Xa Level ABG pH POC ABG pCO2 POC ABG pO2 ABG pO2 ABG HCO3 ABG O2 Saturation ABG Base Excess ABG Hemoglobin ABG Oxyhemoglobin VBG pH ABG Sodium ABG Potassium ABG Glucose Oxyhemoglobin Sodium Potassium 6.6 H* Chloride 109.2 H Carbon Dioxide 17 L BUN 29 H Creatinine 1.3 H Glucose 265 H POC Glucose 248 H Lactic Acid Calcium 8.1 L Ferritin AST 63 H Alkaline Phosphatase Magnesium Lactate Dehydrogenase Total Creatine Kinase 301 H CK-MB (CK-2) 4.3 H C-Reactive Protein Total Protein 5.4 L Albumin 2.6 L Troponin T HDL Cholesterol Arterial Blood Glucose Urine WBC (Auto) Urine Creatinine Urine Total Protein Phenytoin Coronavirus (PCR) Crossmatch 05/28/20 05/28/20 05/28/20 13:47 13:47 14:46 WBC RBC Hgb Hct MCHC RDW Lymph % (Auto) [place] % (Auto) Eos % (Auto) Lymph # [place] # Lymph # (Auto) [place] # (Auto) Eos # (Auto) Seg Neutrophils % Seg Neuts % (Manual) Lymphocytes % (Manual) Seg Neutrophils # Seg Neutrophils # Man Lymphocytes # (Manual) Monocytes % (Manual) Eosinophils % (Manual) Monocytes # (Manual) Eosinophils # (Manual) D-Dimer Heparin Anti-Xa Level ABG pH POC ABG pCO2 POC ABG pO2 ABG pO2 ABG HCO3 ABG O2 Saturation ABG Base Excess ABG Hemoglobin ABG Oxyhemoglobin VBG pH 7.152 L* ABG Sodium ABG Potassium ABG Glucose Oxyhemoglobin Sodium Potassium 7.2 H* Chloride Carbon Dioxide BUN Creatinine Glucose POC Glucose Lactic Acid 3.40 H* Calcium Ferritin AST Alkaline Phosphatase Magnesium Lactate Dehydrogenase Total Creatine Kinase CK-MB (CK-2) C-Reactive Protein Total Protein Albumin Troponin T HDL Cholesterol Arterial Blood Glucose Urine WBC (Auto) Urine Creatinine Urine Total Protein Phenytoin Coronavirus (PCR) Crossmatch 05/28/20 05/28/20 05/28/20 15:33 15:33 15:51 WBC RBC Hgb Hct MCHC RDW Lymph % (Auto) [place] % (Auto) Eos % (Auto) Lymph # [place] # Lymph # (Auto) [place] # (Auto) Eos # (Auto) Seg Neutrophils % Seg Neuts % (Manual) Lymphocytes % (Manual) Seg Neutrophils # Seg Neutrophils # Man Lymphocytes # (Manual) Monocytes % (Manual) Eosinophils % (Manual) Monocytes # (Manual) Eosinophils # (Manual) D-Dimer 8780.43 H Heparin Anti-Xa Level ABG pH 7.284 L POC ABG pCO2 POC ABG pO2 ABG pO2 273.0 H ABG HCO3 ABG O2 Saturation 99.4 H ABG Base Excess -6.1 L ABG Hemoglobin 17.2 H ABG Oxyhemoglobin VBG pH ABG Sodium ABG Potassium ABG Glucose Oxyhemoglobin Sodium Potassium Chloride Carbon Dioxide BUN Creatinine Glucose 152 H POC Glucose Lactic Acid Calcium Ferritin AST Alkaline Phosphatase Magnesium Lactate Dehydrogenase 365 H Total Creatine Kinase CK-MB (CK-2) C-Reactive Protein Total Protein Albumin Troponin T HDL Cholesterol Arterial Blood Glucose Urine WBC (Auto) Urine Creatinine Urine Total Protein Phenytoin Coronavirus (PCR) Crossmatch 05/28/20 05/28/20 05/28/20 16:30 20:41 23:20 WBC RBC Hgb Hct MCHC RDW Lymph % (Auto) [place] % (Auto) Eos % (Auto) Lymph # [place] # Lymph # (Auto) [place] # (Auto) Eos # (Auto) Seg Neutrophils % Seg Neuts % (Manual) Lymphocytes % (Manual) Seg Neutrophils # Seg Neutrophils # Man Lymphocytes # (Manual) Monocytes % (Manual) Eosinophils % (Manual) Monocytes # (Manual) Eosinophils # (Manual) D-Dimer Heparin Anti-Xa Level ABG pH POC ABG pCO2 POC ABG pO2 ABG pO2 ABG HCO3 ABG O2 Saturation ABG Base Excess ABG Hemoglobin ABG Oxyhemoglobin VBG pH ABG Sodium ABG Potassium ABG Glucose Oxyhemoglobin Sodium Potassium Chloride Carbon Dioxide BUN Creatinine Glucose POC Glucose 225 H 224 H Lactic Acid Calcium Ferritin AST Alkaline Phosphatase Magnesium Lactate Dehydrogenase Total Creatine Kinase CK-MB (CK-2) C-Reactive Protein Total Protein Albumin Troponin T HDL Cholesterol Arterial Blood Glucose Urine WBC (Auto) 17.0 H Urine Creatinine Urine Total Protein Phenytoin Coronavirus (PCR) Crossmatch 05/28/20 05/29/20 05/29/20 Unknown 04:35 04:43 WBC RBC 3.48 L Hgb 9.8 L Hct 29.4 L MCHC RDW 16.0 H Lymph % (Auto) 7.4 L [place] % (Auto) Eos % (Auto) Lymph # 0.7 L [place] # Lymph # (Auto) [place] # (Auto) Eos # (Auto) Seg Neutrophils % 89.1 H Seg Neuts % (Manual) Lymphocytes % (Manual) Seg Neutrophils # 8.1 H Seg Neutrophils # Man Lymphocytes # (Manual) Monocytes % (Manual) Eosinophils % (Manual) Monocytes # (Manual) Eosinophils # (Manual) D-Dimer Heparin Anti-Xa Level ABG pH POC ABG pCO2 POC ABG pO2 ABG pO2 ABG HCO3 19.3 L ABG O2 Saturation ABG Base Excess -4.5 L ABG Hemoglobin 9.7 L ABG Oxyhemoglobin VBG pH ABG Sodium ABG Potassium ABG Glucose Oxyhemoglobin Sodium Potassium Chloride Carbon Dioxide BUN Creatinine Glucose POC Glucose Lactic Acid Calcium Ferritin AST Alkaline Phosphatase Magnesium Lactate Dehydrogenase Total Creatine Kinase CK-MB (CK-2) C-Reactive Protein Total Protein Albumin Troponin T HDL Cholesterol Arterial Blood Glucose Urine WBC (Auto) Urine Creatinine Urine Total Protein Phenytoin Coronavirus (PCR) Positive A Crossmatch 05/29/20 05/29/20 05/29/20 04:43 15:10 17:17 WBC RBC Hgb 9.3 L Hct 28.7 L MCHC RDW Lymph % (Auto) [place] % (Auto) Eos % (Auto) Lymph # [place] # Lymph # (Auto) [place] # (Auto) Eos # (Auto) Seg Neutrophils % Seg Neuts % (Manual) Lymphocytes % (Manual) Seg Neutrophils # Seg Neutrophils # Man Lymphocytes # (Manual) Monocytes % (Manual) Eosinophils % (Manual) Monocytes # (Manual) Eosinophils # (Manual) D-Dimer Heparin Anti-Xa Level ABG pH POC ABG pCO2 POC ABG pO2 ABG pO2 ABG HCO3 ABG O2 Saturation ABG Base Excess ABG Hemoglobin ABG Oxyhemoglobin VBG pH ABG Sodium ABG Potassium ABG Glucose Oxyhemoglobin Sodium Potassium Chloride 110.2 H Carbon Dioxide 18 L BUN 32 H Creatinine 1.4 H Glucose 180 H POC Glucose 147 H Lactic Acid Calcium Ferritin AST Alkaline Phosphatase Magnesium Lactate Dehydrogenase Total Creatine Kinase CK-MB (CK-2) C-Reactive Protein Total Protein Albumin Troponin T HDL Cholesterol Arterial Blood Glucose Urine WBC (Auto) Urine Creatinine Urine Total Protein Phenytoin Coronavirus (PCR) Crossmatch 05/30/20 05/30/20 05/30/20 00:08 00:12 04:15 WBC RBC Hgb Hct MCHC RDW Lymph % (Auto) [place] % (Auto) Eos % (Auto) Lymph # [place] # Lymph # (Auto) [place] # (Auto) Eos # (Auto) Seg Neutrophils % Seg Neuts % (Manual) Lymphocytes % (Manual) Seg Neutrophils # Seg Neutrophils # Man Lymphocytes # (Manual) Monocytes % (Manual) Eosinophils % (Manual) Monocytes # (Manual) Eosinophils # (Manual) D-Dimer Heparin Anti-Xa Level 0.71 H ABG pH 7.460 H POC ABG pCO2 POC ABG pO2 ABG pO2 106.0 H ABG HCO3 18.9 L ABG O2 Saturation ABG Base Excess -4.4 L ABG Hemoglobin 6.8 L ABG Oxyhemoglobin VBG pH ABG Sodium ABG Potassium ABG Glucose Oxyhemoglobin Sodium Potassium Chloride Carbon Dioxide BUN Creatinine Glucose POC Glucose 195 H Lactic Acid Calcium Ferritin AST Alkaline Phosphatase Magnesium Lactate Dehydrogenase Total Creatine Kinase CK-MB (CK-2) C-Reactive Protein Total Protein Albumin Troponin T HDL Cholesterol Arterial Blood Glucose Urine WBC (Auto) Urine Creatinine Urine Total Protein Phenytoin Coronavirus (PCR) Crossmatch 05/30/20 05/30/20 05/30/20 06:07 08:37 12:33 WBC RBC Hgb Hct MCHC RDW Lymph % (Auto) [place] % (Auto) Eos % (Auto) Lymph # [place] # Lymph # (Auto) [place] # (Auto) Eos # (Auto) Seg Neutrophils % Seg Neuts % (Manual) Lymphocytes % (Manual) Seg Neutrophils # Seg Neutrophils # Man Lymphocytes # (Manual) Monocytes % (Manual) Eosinophils % (Manual) Monocytes # (Manual) Eosinophils # (Manual) D-Dimer Heparin Anti-Xa Level 0.85 H ABG pH POC ABG pCO2 POC ABG pO2 ABG pO2 ABG HCO3 ABG O2 Saturation ABG Base Excess ABG Hemoglobin ABG Oxyhemoglobin VBG pH ABG Sodium ABG Potassium ABG Glucose Oxyhemoglobin Sodium Potassium Chloride Carbon Dioxide BUN Creatinine Glucose POC Glucose 182 H 187 H Lactic Acid Calcium Ferritin AST Alkaline Phosphatase Magnesium Lactate Dehydrogenase Total Creatine Kinase CK-MB (CK-2) C-Reactive Protein Total Protein Albumin Troponin T HDL Cholesterol Arterial Blood Glucose Urine WBC (Auto) Urine Creatinine Urine Total Protein Phenytoin Coronavirus (PCR) Crossmatch 05/30/20 05/30/20 05/30/20 15:58 17:57 23:36 WBC RBC Hgb Hct MCHC RDW Lymph % (Auto) [place] % (Auto) Eos % (Auto) Lymph # [place] # Lymph # (Auto) [place] # (Auto) Eos # (Auto) Seg Neutrophils % Seg Neuts % (Manual) Lymphocytes % (Manual) Seg Neutrophils # Seg Neutrophils # Man Lymphocytes # (Manual) Monocytes % (Manual) Eosinophils % (Manual) Monocytes # (Manual) Eosinophils # (Manual) D-Dimer Heparin Anti-Xa Level 1.03 H ABG pH POC ABG pCO2 POC ABG pO2 ABG pO2 ABG HCO3 ABG O2 Saturation ABG Base Excess ABG Hemoglobin ABG Oxyhemoglobin VBG pH ABG Sodium ABG Potassium ABG Glucose Oxyhemoglobin Sodium Potassium Chloride Carbon Dioxide BUN Creatinine Glucose POC Glucose 208 H 185 H Lactic Acid Calcium Ferritin AST Alkaline Phosphatase Magnesium Lactate Dehydrogenase Total Creatine Kinase CK-MB (CK-2) C-Reactive Protein Total Protein Albumin Troponin T HDL Cholesterol Arterial Blood Glucose Urine WBC (Auto) Urine Creatinine Urine Total Protein Phenytoin Coronavirus (PCR) Crossmatch 05/31/20 05/31/20 05/31/20 02:16 03:55 06:16 WBC RBC Hgb 9.2 L Hct 27.5 L MCHC RDW Lymph % (Auto) [place] % (Auto) Eos % (Auto) Lymph # [place] # Lymph # (Auto) [place] # (Auto) Eos # (Auto) Seg Neutrophils % Seg Neuts % (Manual) Lymphocytes % (Manual) Seg Neutrophils # Seg Neutrophils # Man Lymphocytes # (Manual) Monocytes % (Manual) Eosinophils % (Manual) Monocytes # (Manual) Eosinophils # (Manual) D-Dimer Heparin Anti-Xa Level ABG pH POC ABG pCO2 POC ABG pO2 ABG pO2 94.7 H ABG HCO3 18.6 L ABG O2 Saturation ABG Base Excess -5.5 L ABG Hemoglobin 7.9 L ABG Oxyhemoglobin VBG pH ABG Sodium ABG Potassium ABG Glucose Oxyhemoglobin Sodium Potassium Chloride Carbon Dioxide BUN Creatinine Glucose POC Glucose 160 H Lactic Acid Calcium Ferritin AST Alkaline Phosphatase Magnesium Lactate Dehydrogenase Total Creatine Kinase CK-MB (CK-2) C-Reactive Protein Total Protein Albumin Troponin T HDL Cholesterol Arterial Blood Glucose Urine WBC (Auto) Urine Creatinine Urine Total Protein Phenytoin Coronavirus (PCR) Crossmatch 05/31/20 05/31/20 05/31/20 12:20 13:03 18:13 WBC RBC Hgb Hct MCHC RDW Lymph % (Auto) [place] % (Auto) Eos % (Auto) Lymph # [place] # Lymph # (Auto) [place] # (Auto) Eos # (Auto) Seg Neutrophils % Seg Neuts % (Manual) Lymphocytes % (Manual) Seg Neutrophils # Seg Neutrophils # Man Lymphocytes # (Manual) Monocytes % (Manual) Eosinophils % (Manual) Monocytes # (Manual) Eosinophils # (Manual) D-Dimer Heparin Anti-Xa Level ABG pH POC ABG pCO2 POC ABG pO2 ABG pO2 ABG HCO3 ABG O2 Saturation ABG Base Excess ABG Hemoglobin ABG Oxyhemoglobin VBG pH ABG Sodium ABG Potassium ABG Glucose Oxyhemoglobin Sodium Potassium Chloride Carbon Dioxide 18 L BUN 48 H Creatinine 1.6 H Glucose 115 H POC Glucose 128 H 159 H Lactic Acid Calcium 8.3 L Ferritin AST Alkaline Phosphatase Magnesium Lactate Dehydrogenase Total Creatine Kinase CK-MB (CK-2) C-Reactive Protein Total Protein 5.4 L Albumin 2.4 L Troponin T HDL Cholesterol Arterial Blood Glucose Urine WBC (Auto) Urine Creatinine Urine Total Protein Phenytoin Coronavirus (PCR) Crossmatch 05/31/20 06/01/20 06/01/20 23:51 04:00 05:48 WBC RBC Hgb Hct MCHC RDW Lymph % (Auto) [place] % (Auto) Eos % (Auto) Lymph # [place] # Lymph # (Auto) [place] # (Auto) Eos # (Auto) Seg Neutrophils % Seg Neuts % (Manual) Lymphocytes % (Manual) Seg Neutrophils # Seg Neutrophils # Man Lymphocytes # (Manual) Monocytes % (Manual) Eosinophils % (Manual) Monocytes # (Manual) Eosinophils # (Manual) D-Dimer Heparin Anti-Xa Level ABG pH POC ABG pCO2 POC ABG pO2 ABG pO2 109.8 H ABG HCO3 18.8 L ABG O2 Saturation ABG Base Excess -5.9 L ABG Hemoglobin 7.8 L ABG Oxyhemoglobin VBG pH ABG Sodium ABG Potassium ABG Glucose Oxyhemoglobin Sodium Potassium Chloride Carbon Dioxide BUN Creatinine Glucose POC Glucose 171 H 133 H Lactic Acid Calcium Ferritin AST Alkaline Phosphatase Magnesium Lactate Dehydrogenase Total Creatine Kinase CK-MB (CK-2) C-Reactive Protein Total Protein Albumin Troponin T HDL Cholesterol Arterial Blood Glucose Urine WBC (Auto) Urine Creatinine Urine Total Protein Phenytoin Coronavirus (PCR) Crossmatch 06/01/20 06/01/20 06/02/20 12:28 17:29 00:08 WBC RBC Hgb Hct MCHC RDW Lymph % (Auto) [place] % (Auto) Eos % (Auto) Lymph # [place] # Lymph # (Auto) [place] # (Auto) Eos # (Auto) Seg Neutrophils % Seg Neuts % (Manual) Lymphocytes % (Manual) Seg Neutrophils # Seg Neutrophils # Man Lymphocytes # (Manual) Monocytes % (Manual) Eosinophils % (Manual) Monocytes # (Manual) Eosinophils # (Manual) D-Dimer Heparin Anti-Xa Level ABG pH POC ABG pCO2 POC ABG pO2 ABG pO2 ABG HCO3 ABG O2 Saturation ABG Base Excess ABG Hemoglobin ABG Oxyhemoglobin VBG pH ABG Sodium ABG Potassium ABG Glucose Oxyhemoglobin Sodium Potassium Chloride Carbon Dioxide BUN Creatinine Glucose POC Glucose 199 H 209 H 162 H Lactic Acid Calcium Ferritin AST Alkaline Phosphatase Magnesium Lactate Dehydrogenase Total Creatine Kinase CK-MB (CK-2) C-Reactive Protein Total Protein Albumin Troponin T HDL Cholesterol Arterial Blood Glucose Urine WBC (Auto) Urine Creatinine Urine Total Protein Phenytoin Coronavirus (PCR) Crossmatch 06/02/20 06/02/20 06/02/20 04:20 04:20 04:44 WBC RBC Hgb 10.0 L Hct MCHC RDW Lymph % (Auto) [place] % (Auto) Eos % (Auto) Lymph # [place] # Lymph # (Auto) [place] # (Auto) Eos # (Auto) Seg Neutrophils % Seg Neuts % (Manual) Lymphocytes % (Manual) Seg Neutrophils # Seg Neutrophils # Man Lymphocytes # (Manual) Monocytes % (Manual) Eosinophils % (Manual) Monocytes # (Manual) Eosinophils # (Manual) D-Dimer Heparin Anti-Xa Level 0.10 L ABG pH POC ABG pCO2 POC ABG pO2 ABG pO2 150.6 H ABG HCO3 ABG O2 Saturation ABG Base Excess -4.1 L ABG Hemoglobin 11.8 L ABG Oxyhemoglobin VBG pH ABG Sodium ABG Potassium ABG Glucose Oxyhemoglobin Sodium Potassium Chloride Carbon Dioxide BUN Creatinine Glucose POC Glucose Lactic Acid Calcium Ferritin AST Alkaline Phosphatase Magnesium Lactate Dehydrogenase Total Creatine Kinase CK-MB (CK-2) C-Reactive Protein Total Protein Albumin Troponin T HDL Cholesterol Arterial Blood Glucose Urine WBC (Auto) Urine Creatinine Urine Total Protein Phenytoin Coronavirus (PCR) Crossmatch 06/02/20 06/02/20 06/02/20 05:53 12:04 13:49 WBC RBC Hgb Hct MCHC RDW Lymph % (Auto) [place] % (Auto) Eos % (Auto) Lymph # [place] # Lymph # (Auto) [place] # (Auto) Eos # (Auto) Seg Neutrophils % Seg Neuts % (Manual) Lymphocytes % (Manual) Seg Neutrophils # Seg Neutrophils # Man Lymphocytes # (Manual) Monocytes % (Manual) Eosinophils % (Manual) Monocytes # (Manual) Eosinophils # (Manual) D-Dimer Heparin Anti-Xa Level 0.28 L ABG pH POC ABG pCO2 POC ABG pO2 ABG pO2 ABG HCO3 ABG O2 Saturation ABG Base Excess ABG Hemoglobin ABG Oxyhemoglobin VBG pH ABG Sodium ABG Potassium ABG Glucose Oxyhemoglobin Sodium Potassium Chloride Carbon Dioxide BUN Creatinine Glucose POC Glucose 149 H 220 H Lactic Acid Calcium Ferritin AST Alkaline Phosphatase Magnesium Lactate Dehydrogenase Total Creatine Kinase CK-MB (CK-2) C-Reactive Protein Total Protein Albumin Troponin T HDL Cholesterol Arterial Blood Glucose Urine WBC (Auto) Urine Creatinine Urine Total Protein Phenytoin Coronavirus (PCR) Crossmatch 06/02/20 06/02/20 06/03/20 13:49 18:31 00:42 WBC RBC Hgb Hct MCHC RDW Lymph % (Auto) [place] % (Auto) Eos % (Auto) Lymph # [place] # Lymph # (Auto) [place] # (Auto) Eos # (Auto) Seg Neutrophils % Seg Neuts % (Manual) Lymphocytes % (Manual) Seg Neutrophils # Seg Neutrophils # Man Lymphocytes # (Manual) Monocytes % (Manual) Eosinophils % (Manual) Monocytes # (Manual) Eosinophils # (Manual) D-Dimer 769.68 H Heparin Anti-Xa Level ABG pH POC ABG pCO2 POC ABG pO2 ABG pO2 ABG HCO3 ABG O2 Saturation ABG Base Excess ABG Hemoglobin ABG Oxyhemoglobin VBG pH ABG Sodium ABG Potassium ABG Glucose Oxyhemoglobin Sodium Potassium Chloride Carbon Dioxide BUN Creatinine Glucose POC Glucose 225 H 212 H Lactic Acid Calcium Ferritin AST Alkaline Phosphatase Magnesium Lactate Dehydrogenase Total Creatine Kinase CK-MB (CK-2) C-Reactive Protein Total Protein Albumin Troponin T HDL Cholesterol Arterial Blood Glucose Urine WBC (Auto) Urine Creatinine Urine Total Protein Phenytoin Coronavirus (PCR) Crossmatch 06/03/20 06/03/20 06/03/20 05:16 05:16 05:25 WBC 11.4 H RBC Hgb Hct MCHC RDW 16.4 H Lymph % (Auto) [place] % (Auto) Eos % (Auto) Lymph # [place] # Lymph # (Auto) [place] # (Auto) Eos # (Auto) Seg Neutrophils % Seg Neuts % (Manual) Lymphocytes % (Manual) Seg Neutrophils # Seg Neutrophils # Man Lymphocytes # (Manual) Monocytes % (Manual) Eosinophils % (Manual) Monocytes # (Manual) Eosinophils # (Manual) D-Dimer Heparin Anti-Xa Level ABG pH POC ABG pCO2 POC ABG pO2 ABG pO2 160.9 H ABG HCO3 19.4 L ABG O2 Saturation ABG Base Excess -4.9 L ABG Hemoglobin 7.0 L ABG Oxyhemoglobin VBG pH ABG Sodium ABG Potassium ABG Glucose Oxyhemoglobin Sodium Potassium Chloride Carbon Dioxide 18 L BUN 65 H Creatinine 2.0 H Glucose 175 H POC Glucose Lactic Acid Calcium 8.0 L Ferritin AST Alkaline Phosphatase Magnesium Lactate Dehydrogenase Total Creatine Kinase CK-MB (CK-2) C-Reactive Protein Total Protein 5.5 L Albumin 2.2 L Troponin T HDL Cholesterol Arterial Blood Glucose Urine WBC (Auto) Urine Creatinine Urine Total Protein Phenytoin Coronavirus (PCR) Crossmatch 06/03/20 06/03/20 06/03/20 06:07 11:58 18:24 WBC RBC Hgb Hct MCHC RDW Lymph % (Auto) [place] % (Auto) Eos % (Auto) Lymph # [place] # Lymph # (Auto) [place] # (Auto) Eos # (Auto) Seg Neutrophils % Seg Neuts % (Manual) Lymphocytes % (Manual) Seg Neutrophils # Seg Neutrophils # Man Lymphocytes # (Manual) Monocytes % (Manual) Eosinophils % (Manual) Monocytes # (Manual) Eosinophils # (Manual) D-Dimer Heparin Anti-Xa Level ABG pH POC ABG pCO2 POC ABG pO2 ABG pO2 ABG HCO3 ABG O2 Saturation ABG Base Excess ABG Hemoglobin ABG Oxyhemoglobin VBG pH ABG Sodium ABG Potassium ABG Glucose Oxyhemoglobin Sodium Potassium Chloride Carbon Dioxide BUN Creatinine Glucose POC Glucose 177 H 163 H 211 H Lactic Acid Calcium Ferritin AST Alkaline Phosphatase Magnesium Lactate Dehydrogenase Total Creatine Kinase CK-MB (CK-2) C-Reactive Protein Total Protein Albumin Troponin T HDL Cholesterol Arterial Blood Glucose Urine WBC (Auto) Urine Creatinine Urine Total Protein Phenytoin Coronavirus (PCR) Crossmatch 06/03/20 06/03/20 06/04/20 21:50 Unknown 00:26 WBC RBC Hgb Hct MCHC RDW Lymph % (Auto) [place] % (Auto) Eos % (Auto) Lymph # [place] # Lymph # (Auto) [place] # (Auto) Eos # (Auto) Seg Neutrophils % Seg Neuts % (Manual) Lymphocytes % (Manual) Seg Neutrophils # Seg Neutrophils # Man Lymphocytes # (Manual) Monocytes % (Manual) Eosinophils % (Manual) Monocytes # (Manual) Eosinophils # (Manual) D-Dimer Heparin Anti-Xa Level ABG pH POC ABG pCO2 POC ABG pO2 ABG pO2 ABG HCO3 ABG O2 Saturation ABG Base Excess ABG Hemoglobin ABG Oxyhemoglobin VBG pH ABG Sodium ABG Potassium ABG Glucose Oxyhemoglobin Sodium 135 L Potassium Chloride Carbon Dioxide 18 L BUN Creatinine Glucose POC Glucose 241 H Lactic Acid Calcium Ferritin AST Alkaline Phosphatase Magnesium Lactate Dehydrogenase Total Creatine Kinase CK-MB (CK-2) C-Reactive Protein Total Protein Albumin Troponin T HDL Cholesterol Arterial Blood Glucose Urine WBC (Auto) 11.0 H Urine Creatinine Urine Total Protein Phenytoin Coronavirus (PCR) Crossmatch 06/04/20 06/04/20 06/04/20 03:35 04:19 04:19 WBC RBC 3.15 L Hgb 8.9 L Hct 26.8 L D MCHC RDW 15.9 H Lymph % (Auto) 6.0 L [place] % (Auto) Eos % (Auto) Lymph # 0.6 L [place] # Lymph # (Auto) [place] # (Auto) Eos # (Auto) Seg Neutrophils % 86.6 H Seg Neuts % (Manual) Lymphocytes % (Manual) Seg Neutrophils # 9.1 H Seg Neutrophils # Man Lymphocytes # (Manual) Monocytes % (Manual) Eosinophils % (Manual) Monocytes # (Manual) Eosinophils # (Manual) D-Dimer Heparin Anti-Xa Level ABG pH 7.331 L POC ABG pCO2 POC ABG pO2 ABG pO2 ABG HCO3 ABG O2 Saturation ABG Base Excess -4.7 L ABG Hemoglobin 11.0 L ABG Oxyhemoglobin VBG pH ABG Sodium ABG Potassium ABG Glucose Oxyhemoglobin 93.9 L Sodium 136 L Potassium Chloride Carbon Dioxide 20 L BUN 73 H Creatinine 2.0 H Glucose 192 H POC Glucose Lactic Acid Calcium 8.0 L Ferritin AST Alkaline Phosphatase Magnesium Lactate Dehydrogenase 271 H Total Creatine Kinase CK-MB (CK-2) C-Reactive Protein 2.20 H Total Protein 5.0 L Albumin 2.0 L Troponin T HDL Cholesterol Arterial Blood Glucose Urine WBC (Auto) Urine Creatinine Urine Total Protein Phenytoin Coronavirus (PCR) Crossmatch 06/04/20 06/04/20 06/04/20 04:19 05:51 11:48 WBC RBC Hgb Hct MCHC RDW Lymph % (Auto) [place] % (Auto) Eos % (Auto) Lymph # [place] # Lymph # (Auto) [place] # (Auto) Eos # (Auto) Seg Neutrophils % Seg Neuts % (Manual) Lymphocytes % (Manual) Seg Neutrophils # Seg Neutrophils # Man Lymphocytes # (Manual) Monocytes % (Manual) Eosinophils % (Manual) Monocytes # (Manual) Eosinophils # (Manual) D-Dimer 414.52 H Heparin Anti-Xa Level ABG pH POC ABG pCO2 POC ABG pO2 ABG pO2 ABG HCO3 ABG O2 Saturation ABG Base Excess ABG Hemoglobin ABG Oxyhemoglobin VBG pH ABG Sodium ABG Potassium ABG Glucose Oxyhemoglobin Sodium Potassium Chloride Carbon Dioxide BUN Creatinine Glucose POC Glucose 179 H 213 H Lactic Acid Calcium Ferritin AST Alkaline Phosphatase Magnesium Lactate Dehydrogenase Total Creatine Kinase CK-MB (CK-2) C-Reactive Protein Total Protein Albumin Troponin T HDL Cholesterol Arterial Blood Glucose Urine WBC (Auto) Urine Creatinine Urine Total Protein Phenytoin Coronavirus (PCR) Crossmatch 06/04/20 06/05/20 06/05/20 18:25 00:16 05:00 WBC RBC Hgb Hct MCHC RDW Lymph % (Auto) [place] % (Auto) Eos % (Auto) Lymph # [place] # Lymph # (Auto) [place] # (Auto) Eos # (Auto) Seg Neutrophils % Seg Neuts % (Manual) Lymphocytes % (Manual) Seg Neutrophils # Seg Neutrophils # Man Lymphocytes # (Manual) Monocytes % (Manual) Eosinophils % (Manual) Monocytes # (Manual) Eosinophils # (Manual) D-Dimer Heparin Anti-Xa Level ABG pH 7.286 L POC ABG pCO2 POC ABG pO2 ABG pO2 96.2 H ABG HCO3 ABG O2 Saturation ABG Base Excess -6.3 L ABG Hemoglobin 8.8 L ABG Oxyhemoglobin VBG pH ABG Sodium ABG Potassium ABG Glucose Oxyhemoglobin 94.8 L Sodium Potassium Chloride Carbon Dioxide BUN Creatinine Glucose POC Glucose 238 H 183 H Lactic Acid Calcium Ferritin AST Alkaline Phosphatase Magnesium Lactate Dehydrogenase Total Creatine Kinase CK-MB (CK-2) C-Reactive Protein Total Protein Albumin Troponin T HDL Cholesterol Arterial Blood Glucose Urine WBC (Auto) Urine Creatinine Urine Total Protein Phenytoin Coronavirus (PCR) Crossmatch 06/05/20 06/05/20 06/05/20 05:39 07:25 07:25 WBC RBC 2.97 L Hgb 8.7 L Hct 25.7 L MCHC RDW 16.0 H Lymph % (Auto) 8.8 L [place] % (Auto) 13.3 H Eos % (Auto) Lymph # 0.8 L [place] # 1.3 H Lymph # (Auto) [place] # (Auto) Eos # (Auto) Seg Neutrophils % 77.3 H Seg Neuts % (Manual) Lymphocytes % (Manual) Seg Neutrophils # Seg Neutrophils # Man Lymphocytes # (Manual) Monocytes % (Manual) Eosinophils % (Manual) Monocytes # (Manual) Eosinophils # (Manual) D-Dimer Heparin Anti-Xa Level ABG pH POC ABG pCO2 POC ABG pO2 ABG pO2 ABG HCO3 ABG O2 Saturation ABG Base Excess ABG Hemoglobin ABG Oxyhemoglobin VBG pH ABG Sodium ABG Potassium ABG Glucose Oxyhemoglobin Sodium 133 L Potassium Chloride Carbon Dioxide 17 L BUN 89 H Creatinine 2.8 H Glucose 176 H POC Glucose 149 H Lactic Acid Calcium 7.7 L Ferritin AST Alkaline Phosphatase Magnesium Lactate Dehydrogenase Total Creatine Kinase CK-MB (CK-2) C-Reactive Protein Total Protein 4.2 L Albumin 1.9 L Troponin T HDL Cholesterol Arterial Blood Glucose Urine WBC (Auto) Urine Creatinine Urine Total Protein Phenytoin Coronavirus (PCR) Crossmatch 06/05/20 06/05/20 06/05/20 07:25 12:05 15:41 WBC RBC Hgb Hct MCHC RDW Lymph % (Auto) [place] % (Auto) Eos % (Auto) Lymph # [place] # Lymph # (Auto) [place] # (Auto) Eos # (Auto) Seg Neutrophils % Seg Neuts % (Manual) Lymphocytes % (Manual) Seg Neutrophils # Seg Neutrophils # Man Lymphocytes # (Manual) Monocytes % (Manual) Eosinophils % (Manual) Monocytes # (Manual) Eosinophils # (Manual) D-Dimer Heparin Anti-Xa Level 0.76 H 0.81 H ABG pH POC ABG pCO2 POC ABG pO2 ABG pO2 ABG HCO3 ABG O2 Saturation ABG Base Excess ABG Hemoglobin ABG Oxyhemoglobin VBG pH ABG Sodium ABG Potassium ABG Glucose Oxyhemoglobin Sodium Potassium Chloride Carbon Dioxide BUN Creatinine Glucose POC Glucose 198 H Lactic Acid Calcium Ferritin AST Alkaline Phosphatase Magnesium Lactate Dehydrogenase Total Creatine Kinase CK-MB (CK-2) C-Reactive Protein Total Protein Albumin Troponin T HDL Cholesterol Arterial Blood Glucose Urine WBC (Auto) Urine Creatinine Urine Total Protein Phenytoin Coronavirus (PCR) Crossmatch 06/05/20 06/05/20 06/06/20 18:08 23:25 04:00 WBC RBC Hgb Hct MCHC RDW Lymph % (Auto) [place] % (Auto) Eos % (Auto) Lymph # [place] # Lymph # (Auto) [place] # (Auto) Eos # (Auto) Seg Neutrophils % Seg Neuts % (Manual) Lymphocytes % (Manual) Seg Neutrophils # Seg Neutrophils # Man Lymphocytes # (Manual) Monocytes % (Manual) Eosinophils % (Manual) Monocytes # (Manual) Eosinophils # (Manual) D-Dimer Heparin Anti-Xa Level ABG pH POC ABG pCO2 POC ABG pO2 ABG pO2 ABG HCO3 ABG O2 Saturation ABG Base Excess ABG Hemoglobin ABG Oxyhemoglobin VBG pH ABG Sodium ABG Potassium ABG Glucose Oxyhemoglobin Sodium Potassium Chloride Carbon Dioxide BUN Creatinine Glucose POC Glucose 223 H 169 H Lactic Acid Calcium Ferritin AST Alkaline Phosphatase Magnesium Lactate Dehydrogenase Total Creatine Kinase CK-MB (CK-2) C-Reactive Protein Total Protein Albumin Troponin T HDL Cholesterol Arterial Blood Glucose Urine WBC (Auto) 15.0 H Urine Creatinine Urine Total Protein Phenytoin Coronavirus (PCR) Crossmatch 06/06/20 06/06/20 06/06/20 04:00 05:33 05:38 WBC RBC 2.97 L Hgb 8.7 L Hct 26.8 L MCHC RDW 16.8 H Lymph % (Auto) [place] % (Auto) Eos % (Auto) Lymph # [place] # Lymph # (Auto) [place] # (Auto) Eos # (Auto) Seg Neutrophils % Seg Neuts % (Manual) Lymphocytes % (Manual) Seg Neutrophils # Seg Neutrophils # Man Lymphocytes # (Manual) Monocytes % (Manual) Eosinophils % (Manual) Monocytes # (Manual) Eosinophils # (Manual) D-Dimer Heparin Anti-Xa Level ABG pH POC ABG pCO2 POC ABG pO2 ABG pO2 ABG HCO3 ABG O2 Saturation ABG Base Excess ABG Hemoglobin ABG Oxyhemoglobin VBG pH ABG Sodium ABG Potassium ABG Glucose Oxyhemoglobin Sodium Potassium Chloride Carbon Dioxide BUN Creatinine Glucose POC Glucose 186 H Lactic Acid Calcium Ferritin AST Alkaline Phosphatase Magnesium Lactate Dehydrogenase Total Creatine Kinase CK-MB (CK-2) C-Reactive Protein Total Protein Albumin Troponin T HDL Cholesterol Arterial Blood Glucose Urine WBC (Auto) Urine Creatinine 82.2 H Urine Total Protein 196 H Phenytoin Coronavirus (PCR) Crossmatch 06/06/20 06/06/20 06/06/20 05:38 12:25 17:03 WBC RBC Hgb Hct MCHC RDW Lymph % (Auto) [place] % (Auto) Eos % (Auto) Lymph # [place] # Lymph # (Auto) [place] # (Auto) Eos # (Auto) Seg Neutrophils % Seg Neuts % (Manual) Lymphocytes % (Manual) Seg Neutrophils # Seg Neutrophils # Man Lymphocytes # (Manual) Monocytes % (Manual) Eosinophils % (Manual) Monocytes # (Manual) Eosinophils # (Manual) D-Dimer Heparin Anti-Xa Level ABG pH POC ABG pCO2 POC ABG pO2 ABG pO2 ABG HCO3 ABG O2 Saturation ABG Base Excess ABG Hemoglobin ABG Oxyhemoglobin VBG pH ABG Sodium ABG Potassium ABG Glucose Oxyhemoglobin Sodium 134 L Potassium 5.2 H Chloride Carbon Dioxide 18 L BUN 97 H Creatinine 2.5 H Glucose 193 H POC Glucose 239 H 252 H Lactic Acid Calcium 7.5 L Ferritin AST Alkaline Phosphatase Magnesium Lactate Dehydrogenase Total Creatine Kinase CK-MB (CK-2) C-Reactive Protein Total Protein 4.1 L Albumin 1.9 L Troponin T HDL Cholesterol Arterial Blood Glucose Urine WBC (Auto) Urine Creatinine Urine Total Protein Phenytoin Coronavirus (PCR) Crossmatch 06/07/20 06/07/20 06/07/20 00:16 01:49 04:00 WBC RBC 2.91 L Hgb 8.4 L Hct 25.0 L MCHC RDW 16.1 H Lymph % (Auto) 5.7 L [place] % (Auto) 10.5 H Eos % (Auto) Lymph # 0.6 L [place] # 1.1 H Lymph # (Auto) [place] # (Auto) Eos # (Auto) Seg Neutrophils % 83.6 H Seg Neuts % (Manual) Lymphocytes % (Manual) Seg Neutrophils # 9.1 H Seg Neutrophils # Man Lymphocytes # (Manual) Monocytes % (Manual) Eosinophils % (Manual) Monocytes # (Manual) Eosinophils # (Manual) D-Dimer Heparin Anti-Xa Level 0.26 L ABG pH POC ABG pCO2 POC ABG pO2 ABG pO2 ABG HCO3 ABG O2 Saturation ABG Base Excess ABG Hemoglobin ABG Oxyhemoglobin VBG pH ABG Sodium ABG Potassium ABG Glucose Oxyhemoglobin Sodium Potassium Chloride Carbon Dioxide BUN Creatinine Glucose POC Glucose 173 H Lactic Acid Calcium Ferritin AST Alkaline Phosphatase Magnesium Lactate Dehydrogenase Total Creatine Kinase CK-MB (CK-2) C-Reactive Protein Total Protein Albumin Troponin T HDL Cholesterol Arterial Blood Glucose Urine WBC (Auto) Urine Creatinine Urine Total Protein Phenytoin Coronavirus (PCR) Crossmatch 06/07/20 06/07/20 06/07/20 04:00 04:54 05:51 WBC RBC Hgb Hct MCHC RDW Lymph % (Auto) [place] % (Auto) Eos % (Auto) Lymph # [place] # Lymph # (Auto) [place] # (Auto) Eos # (Auto) Seg Neutrophils % Seg Neuts % (Manual) Lymphocytes % (Manual) Seg Neutrophils # Seg Neutrophils # Man Lymphocytes # (Manual) Monocytes % (Manual) Eosinophils % (Manual) Monocytes # (Manual) Eosinophils # (Manual) D-Dimer Heparin Anti-Xa Level ABG pH 7.317 L POC ABG pCO2 POC ABG pO2 ABG pO2 71.4 L ABG HCO3 ABG O2 Saturation 94.3 L ABG Base Excess -4.8 L ABG Hemoglobin 7.1 L ABG Oxyhemoglobin VBG pH ABG Sodium ABG Potassium ABG Glucose Oxyhemoglobin 92.2 L Sodium 133 L Potassium Chloride Carbon Dioxide 18 L BUN 100 H Creatinine 2.5 H Glucose 158 H POC Glucose 168 H Lactic Acid Calcium 7.6 L Ferritin AST Alkaline Phosphatase Magnesium Lactate Dehydrogenase Total Creatine Kinase CK-MB (CK-2) C-Reactive Protein Total Protein 4.7 L Albumin 2.0 L Troponin T HDL Cholesterol Arterial Blood Glucose Urine WBC (Auto) Urine Creatinine Urine Total Protein Phenytoin Coronavirus (PCR) Crossmatch 06/07/20 06/07/20 06/07/20 12:03 17:17 20:10 WBC RBC Hgb Hct MCHC RDW Lymph % (Auto) [place] % (Auto) Eos % (Auto) Lymph # [place] # Lymph # (Auto) [place] # (Auto) Eos # (Auto) Seg Neutrophils % Seg Neuts % (Manual) Lymphocytes % (Manual) Seg Neutrophils # Seg Neutrophils # Man Lymphocytes # (Manual) Monocytes % (Manual) Eosinophils % (Manual) Monocytes # (Manual) Eosinophils # (Manual) D-Dimer Heparin Anti-Xa Level 0.17 L ABG pH POC ABG pCO2 POC ABG pO2 ABG pO2 ABG HCO3 ABG O2 Saturation ABG Base Excess ABG Hemoglobin ABG Oxyhemoglobin VBG pH ABG Sodium ABG Potassium ABG Glucose Oxyhemoglobin Sodium Potassium Chloride Carbon Dioxide BUN Creatinine Glucose POC Glucose 276 H 281 H Lactic Acid Calcium Ferritin AST Alkaline Phosphatase Magnesium Lactate Dehydrogenase Total Creatine Kinase CK-MB (CK-2) C-Reactive Protein Total Protein Albumin Troponin T HDL Cholesterol Arterial Blood Glucose Urine WBC (Auto) Urine Creatinine Urine Total Protein Phenytoin Coronavirus (PCR) Crossmatch 06/08/20 06/08/20 06/08/20 00:02 04:47 04:47 WBC 16.4 H RBC 3.07 L Hgb 8.6 L Hct 26.5 L MCHC RDW 16.3 H Lymph % (Auto) [place] % (Auto) Eos % (Auto) Lymph # [place] # Lymph # (Auto) [place] # (Auto) Eos # (Auto) Seg Neutrophils % Seg Neuts % (Manual) 90.0 H Lymphocytes % (Manual) 3.0 L Seg Neutrophils # Seg Neutrophils # Man 14.8 H Lymphocytes # (Manual) 0.5 L Monocytes % (Manual) Eosinophils % (Manual) Monocytes # (Manual) 1.1 H Eosinophils # (Manual) D-Dimer Heparin Anti-Xa Level ABG pH POC ABG pCO2 POC ABG pO2 ABG pO2 ABG HCO3 ABG O2 Saturation ABG Base Excess ABG Hemoglobin ABG Oxyhemoglobin VBG pH ABG Sodium ABG Potassium ABG Glucose Oxyhemoglobin Sodium 129 L Potassium Chloride 95.6 L Carbon Dioxide 17 L BUN 106 H Creatinine 2.5 H Glucose 213 H POC Glucose 242 H Lactic Acid Calcium 7.6 L Ferritin AST Alkaline Phosphatase Magnesium Lactate Dehydrogenase Total Creatine Kinase CK-MB (CK-2) C-Reactive Protein Total Protein 5.0 L Albumin 2.1 L Troponin T HDL Cholesterol Arterial Blood Glucose Urine WBC (Auto) Urine Creatinine Urine Total Protein Phenytoin Coronavirus (PCR) Crossmatch 06/08/20 06/08/20 06/08/20 05:40 11:55 17:54 WBC RBC Hgb Hct MCHC RDW Lymph % (Auto) [place] % (Auto) Eos % (Auto) Lymph # [place] # Lymph # (Auto) [place] # (Auto) Eos # (Auto) Seg Neutrophils % Seg Neuts % (Manual) Lymphocytes % (Manual) Seg Neutrophils # Seg Neutrophils # Man Lymphocytes # (Manual) Monocytes % (Manual) Eosinophils % (Manual) Monocytes # (Manual) Eosinophils # (Manual) D-Dimer Heparin Anti-Xa Level ABG pH POC ABG pCO2 POC ABG pO2 ABG pO2 ABG HCO3 ABG O2 Saturation ABG Base Excess ABG Hemoglobin ABG Oxyhemoglobin VBG pH ABG Sodium ABG Potassium ABG Glucose Oxyhemoglobin Sodium Potassium Chloride Carbon Dioxide BUN Creatinine Glucose POC Glucose 221 H 218 H 163 H Lactic Acid Calcium Ferritin AST Alkaline Phosphatase Magnesium Lactate Dehydrogenase Total Creatine Kinase CK-MB (CK-2) C-Reactive Protein Total Protein Albumin Troponin T HDL Cholesterol Arterial Blood Glucose Urine WBC (Auto) Urine Creatinine Urine Total Protein Phenytoin Coronavirus (PCR) Crossmatch 06/08/20 06/09/20 06/09/20 22:01 00:09 05:16 WBC 19.0 H RBC 3.35 L Hgb 9.2 L Hct 28.5 L MCHC RDW 16.3 H Lymph % (Auto) [place] % (Auto) Eos % (Auto) Lymph # [place] # Lymph # (Auto) [place] # (Auto) Eos # (Auto) Seg Neutrophils % Seg Neuts % (Manual) 85.0 H Lymphocytes % (Manual) 7.0 L Seg Neutrophils # Seg Neutrophils # Man 16.2 H Lymphocytes # (Manual) Monocytes % (Manual) Eosinophils % (Manual) Monocytes # (Manual) 1.3 H Eosinophils # (Manual) D-Dimer Heparin Anti-Xa Level ABG pH POC ABG pCO2 POC ABG pO2 ABG pO2 ABG HCO3 ABG O2 Saturation ABG Base Excess ABG Hemoglobin ABG Oxyhemoglobin VBG pH ABG Sodium ABG Potassium ABG Glucose Oxyhemoglobin Sodium Potassium Chloride Carbon Dioxide BUN Creatinine Glucose POC Glucose 182 H 150 H Lactic Acid Calcium Ferritin AST Alkaline Phosphatase Magnesium Lactate Dehydrogenase Total Creatine Kinase CK-MB (CK-2) C-Reactive Protein Total Protein Albumin Troponin T HDL Cholesterol Arterial Blood Glucose Urine WBC (Auto) Urine Creatinine Urine Total Protein Phenytoin Coronavirus (PCR) Crossmatch 06/09/20 06/09/20 06/09/20 05:16 05:24 11:29 WBC RBC Hgb Hct MCHC RDW Lymph % (Auto) [place] % (Auto) Eos % (Auto) Lymph # [place] # Lymph # (Auto) [place] # (Auto) Eos # (Auto) Seg Neutrophils % Seg Neuts % (Manual) Lymphocytes % (Manual) Seg Neutrophils # Seg Neutrophils # Man Lymphocytes # (Manual) Monocytes % (Manual) Eosinophils % (Manual) Monocytes # (Manual) Eosinophils # (Manual) D-Dimer Heparin Anti-Xa Level ABG pH POC ABG pCO2 POC ABG pO2 ABG pO2 ABG HCO3 ABG O2 Saturation ABG Base Excess ABG Hemoglobin ABG Oxyhemoglobin VBG pH ABG Sodium ABG Potassium ABG Glucose Oxyhemoglobin Sodium 133 L Potassium Chloride Carbon Dioxide 19 L BUN 109 H Creatinine 2.1 H Glucose 133 H POC Glucose 128 H 119 H Lactic Acid Calcium 7.7 L Ferritin AST Alkaline Phosphatase < 5 L Magnesium Lactate Dehydrogenase Total Creatine Kinase CK-MB (CK-2) C-Reactive Protein Total Protein 4.6 L Albumin < 0.2 L Troponin T HDL Cholesterol Arterial Blood Glucose Urine WBC (Auto) Urine Creatinine Urine Total Protein Phenytoin Coronavirus (PCR) Crossmatch 06/09/20 06/10/20 06/10/20 17:32 00:00 05:49 WBC RBC Hgb Hct MCHC RDW Lymph % (Auto) [place] % (Auto) Eos % (Auto) Lymph # [place] # Lymph # (Auto) [place] # (Auto) Eos # (Auto) Seg Neutrophils % Seg Neuts % (Manual) Lymphocytes % (Manual) Seg Neutrophils # Seg Neutrophils # Man Lymphocytes # (Manual) Monocytes % (Manual) Eosinophils % (Manual) Monocytes # (Manual) Eosinophils # (Manual) D-Dimer Heparin Anti-Xa Level 0.19 L ABG pH POC ABG pCO2 POC ABG pO2 ABG pO2 ABG HCO3 ABG O2 Saturation ABG Base Excess ABG Hemoglobin ABG Oxyhemoglobin VBG pH ABG Sodium ABG Potassium ABG Glucose Oxyhemoglobin Sodium Potassium Chloride Carbon Dioxide BUN Creatinine Glucose POC Glucose 106 H 117 H Lactic Acid Calcium Ferritin AST Alkaline Phosphatase Magnesium Lactate Dehydrogenase Total Creatine Kinase CK-MB (CK-2) C-Reactive Protein Total Protein Albumin Troponin T HDL Cholesterol Arterial Blood Glucose Urine WBC (Auto) Urine Creatinine Urine Total Protein Phenytoin Coronavirus (PCR) Crossmatch 06/10/20 06/10/20 06/10/20 05:54 07:40 11:40 WBC RBC Hgb Hct MCHC RDW Lymph % (Auto) [place] % (Auto) Eos % (Auto) Lymph # [place] # Lymph # (Auto) [place] # (Auto) Eos # (Auto) Seg Neutrophils % Seg Neuts % (Manual) Lymphocytes % (Manual) Seg Neutrophils # Seg Neutrophils # Man Lymphocytes # (Manual) Monocytes % (Manual) Eosinophils % (Manual) Monocytes # (Manual) Eosinophils # (Manual) D-Dimer Heparin Anti-Xa Level ABG pH POC ABG pCO2 POC ABG pO2 ABG pO2 ABG HCO3 ABG O2 Saturation ABG Base Excess ABG Hemoglobin ABG Oxyhemoglobin VBG pH ABG Sodium ABG Potassium ABG Glucose Oxyhemoglobin Sodium 146 H D Potassium Chloride Carbon Dioxide 20 L BUN 99 H Creatinine 1.9 H Glucose 121 H POC Glucose 127 H 138 H Lactic Acid Calcium 8.2 L Ferritin AST Alkaline Phosphatase Magnesium Lactate Dehydrogenase Total Creatine Kinase CK-MB (CK-2) C-Reactive Protein Total Protein Albumin Troponin T HDL Cholesterol Arterial Blood Glucose Urine WBC (Auto) Urine Creatinine Urine Total Protein Phenytoin Coronavirus (PCR) Crossmatch 06/10/20 06/10/20 06/10/20 14:44 17:31 23:22 WBC RBC Hgb Hct MCHC RDW Lymph % (Auto) [place] % (Auto) Eos % (Auto) Lymph # [place] # Lymph # (Auto) [place] # (Auto) Eos # (Auto) Seg Neutrophils % Seg Neuts % (Manual) Lymphocytes % (Manual) Seg Neutrophils # Seg Neutrophils # Man Lymphocytes # (Manual) Monocytes % (Manual) Eosinophils % (Manual) Monocytes # (Manual) Eosinophils # (Manual) D-Dimer Heparin Anti-Xa Level 0.17 L ABG pH POC ABG pCO2 POC ABG pO2 ABG pO2 ABG HCO3 ABG O2 Saturation ABG Base Excess ABG Hemoglobin ABG Oxyhemoglobin VBG pH ABG Sodium ABG Potassium ABG Glucose Oxyhemoglobin Sodium Potassium Chloride Carbon Dioxide BUN Creatinine Glucose POC Glucose 128 H 114 H Lactic Acid Calcium Ferritin AST Alkaline Phosphatase Magnesium Lactate Dehydrogenase Total Creatine Kinase CK-MB (CK-2) C-Reactive Protein Total Protein Albumin Troponin T HDL Cholesterol Arterial Blood Glucose Urine WBC (Auto) Urine Creatinine Urine Total Protein Phenytoin Coronavirus (PCR) Crossmatch 06/11/20 06/11/20 06/11/20 00:22 03:45 03:45 WBC 14.6 H RBC 2.77 L Hgb 7.9 L Hct 24.3 L MCHC RDW 16.8 H Lymph % (Auto) 6.6 L [place] % (Auto) 8.5 H Eos % (Auto) Lymph # 1.0 L [place] # 1.2 H Lymph # (Auto) [place] # (Auto) Eos # (Auto) Seg Neutrophils % 82.9 H Seg Neuts % (Manual) Lymphocytes % (Manual) Seg Neutrophils # 12.1 H Seg Neutrophils # Man Lymphocytes # (Manual) Monocytes % (Manual) Eosinophils % (Manual) Monocytes # (Manual) Eosinophils # (Manual) D-Dimer Heparin Anti-Xa Level 0.24 L ABG pH POC ABG pCO2 POC ABG pO2 ABG pO2 ABG HCO3 ABG O2 Saturation ABG Base Excess ABG Hemoglobin ABG Oxyhemoglobin VBG pH ABG Sodium ABG Potassium ABG Glucose Oxyhemoglobin Sodium Potassium Chloride Carbon Dioxide 20 L BUN 88 H Creatinine 1.5 H Glucose 111 H POC Glucose Lactic Acid Calcium 8.2 L Ferritin AST Alkaline Phosphatase Magnesium Lactate Dehydrogenase Total Creatine Kinase CK-MB (CK-2) C-Reactive Protein Total Protein Albumin Troponin T HDL Cholesterol Arterial Blood Glucose Urine WBC (Auto) Urine Creatinine Urine Total Protein Phenytoin Coronavirus (PCR) Crossmatch 06/11/20 06/11/20 06/11/20 06:03 10:22 11:11 WBC RBC Hgb Hct MCHC RDW Lymph % (Auto) [place] % (Auto) Eos % (Auto) Lymph # [place] # Lymph # (Auto) [place] # (Auto) Eos # (Auto) Seg Neutrophils % Seg Neuts % (Manual) Lymphocytes % (Manual) Seg Neutrophils # Seg Neutrophils # Man Lymphocytes # (Manual) Monocytes % (Manual) Eosinophils % (Manual) Monocytes # (Manual) Eosinophils # (Manual) D-Dimer Heparin Anti-Xa Level 0.26 L ABG pH POC ABG pCO2 POC ABG pO2 ABG pO2 ABG HCO3 ABG O2 Saturation ABG Base Excess ABG Hemoglobin 9.6 L ABG Oxyhemoglobin VBG pH ABG Sodium ABG Potassium ABG Glucose Oxyhemoglobin Sodium Potassium Chloride Carbon Dioxide BUN Creatinine Glucose POC Glucose 114 H Lactic Acid Calcium Ferritin AST Alkaline Phosphatase Magnesium Lactate Dehydrogenase Total Creatine Kinase CK-MB (CK-2) C-Reactive Protein Total Protein Albumin Troponin T HDL Cholesterol Arterial Blood Glucose Urine WBC (Auto) Urine Creatinine Urine Total Protein Phenytoin Coronavirus (PCR) Crossmatch 06/11/20 06/11/20 06/12/20 12:24 17:24 00:21 WBC RBC Hgb Hct MCHC RDW Lymph % (Auto) [place] % (Auto) Eos % (Auto) Lymph # [place] # Lymph # (Auto) [place] # (Auto) Eos # (Auto) Seg Neutrophils % Seg Neuts % (Manual) Lymphocytes % (Manual) Seg Neutrophils # Seg Neutrophils # Man Lymphocytes # (Manual) Monocytes % (Manual) Eosinophils % (Manual) Monocytes # (Manual) Eosinophils # (Manual) D-Dimer Heparin Anti-Xa Level ABG pH POC ABG pCO2 POC ABG pO2 ABG pO2 ABG HCO3 ABG O2 Saturation ABG Base Excess ABG Hemoglobin ABG Oxyhemoglobin VBG pH ABG Sodium ABG Potassium ABG Glucose Oxyhemoglobin Sodium Potassium Chloride Carbon Dioxide BUN Creatinine Glucose POC Glucose 119 H 126 H 117 H Lactic Acid Calcium Ferritin AST Alkaline Phosphatase Magnesium Lactate Dehydrogenase Total Creatine Kinase CK-MB (CK-2) C-Reactive Protein Total Protein Albumin Troponin T HDL Cholesterol Arterial Blood Glucose Urine WBC (Auto) Urine Creatinine Urine Total Protein Phenytoin Coronavirus (PCR) Crossmatch 06/12/20 06/12/20 06/12/20 02:46 02:46 05:46 WBC 13.2 H RBC 2.83 L Hgb 8.3 L Hct 24.3 L MCHC RDW 16.6 H Lymph % (Auto) 6.2 L [place] % (Auto) 9.5 H Eos % (Auto) Lymph # 0.8 L [place] # 1.3 H Lymph # (Auto) [place] # (Auto) Eos # (Auto) Seg Neutrophils % 81.9 H Seg Neuts % (Manual) Lymphocytes % (Manual) Seg Neutrophils # 10.9 H Seg Neutrophils # Man Lymphocytes # (Manual) Monocytes % (Manual) Eosinophils % (Manual) Monocytes # (Manual) Eosinophils # (Manual) D-Dimer Heparin Anti-Xa Level ABG pH POC ABG pCO2 POC ABG pO2 ABG pO2 ABG HCO3 ABG O2 Saturation ABG Base Excess ABG Hemoglobin ABG Oxyhemoglobin VBG pH ABG Sodium ABG Potassium ABG Glucose Oxyhemoglobin Sodium Potassium 3.5 L Chloride Carbon Dioxide BUN 77 H Creatinine 1.3 H Glucose POC Glucose 132 H Lactic Acid Calcium 8.3 L Ferritin AST Alkaline Phosphatase Magnesium Lactate Dehydrogenase Total Creatine Kinase CK-MB (CK-2) C-Reactive Protein Total Protein Albumin Troponin T HDL Cholesterol Arterial Blood Glucose Urine WBC (Auto) Urine Creatinine Urine Total Protein Phenytoin Coronavirus (PCR) Crossmatch 06/12/20 06/12/20 06/12/20 09:20 12:16 17:48 WBC RBC Hgb Hct MCHC RDW Lymph % (Auto) [place] % (Auto) Eos % (Auto) Lymph # [place] # Lymph # (Auto) [place] # (Auto) Eos # (Auto) Seg Neutrophils % Seg Neuts % (Manual) Lymphocytes % (Manual) Seg Neutrophils # Seg Neutrophils # Man Lymphocytes # (Manual) Monocytes % (Manual) Eosinophils % (Manual) Monocytes # (Manual) Eosinophils # (Manual) D-Dimer Heparin Anti-Xa Level ABG pH POC ABG pCO2 POC ABG pO2 ABG pO2 91.1 H ABG HCO3 ABG O2 Saturation ABG Base Excess ABG Hemoglobin ABG Oxyhemoglobin VBG pH ABG Sodium ABG Potassium ABG Glucose Oxyhemoglobin 94.8 L Sodium Potassium Chloride Carbon Dioxide BUN Creatinine Glucose POC Glucose 167 H 182 H Lactic Acid Calcium Ferritin AST Alkaline Phosphatase Magnesium Lactate Dehydrogenase Total Creatine Kinase CK-MB (CK-2) C-Reactive Protein Total Protein Albumin Troponin T HDL Cholesterol Arterial Blood Glucose Urine WBC (Auto) Urine Creatinine Urine Total Protein Phenytoin Coronavirus (PCR) Crossmatch 06/13/20 06/13/20 06/13/20 00:08 05:37 09:09 WBC RBC Hgb Hct MCHC RDW Lymph % (Auto) [place] % (Auto) Eos % (Auto) Lymph # [place] # Lymph # (Auto) [place] # (Auto) Eos # (Auto) Seg Neutrophils % Seg Neuts % (Manual) Lymphocytes % (Manual) Seg Neutrophils # Seg Neutrophils # Man Lymphocytes # (Manual) Monocytes % (Manual) Eosinophils % (Manual) Monocytes # (Manual) Eosinophils # (Manual) D-Dimer Heparin Anti-Xa Level 0.86 H ABG pH POC ABG pCO2 POC ABG pO2 ABG pO2 ABG HCO3 ABG O2 Saturation ABG Base Excess ABG Hemoglobin ABG Oxyhemoglobin VBG pH ABG Sodium ABG Potassium ABG Glucose Oxyhemoglobin Sodium Potassium Chloride Carbon Dioxide BUN Creatinine Glucose POC Glucose 142 H 119 H Lactic Acid Calcium Ferritin AST Alkaline Phosphatase Magnesium Lactate Dehydrogenase Total Creatine Kinase CK-MB (CK-2) C-Reactive Protein Total Protein Albumin Troponin T HDL Cholesterol Arterial Blood Glucose Urine WBC (Auto) Urine Creatinine Urine Total Protein Phenytoin Coronavirus (PCR) Crossmatch 06/13/20 06/13/20 06/13/20 12:28 17:55 21:17 WBC RBC Hgb Hct MCHC RDW Lymph % (Auto) [place] % (Auto) Eos % (Auto) Lymph # [place] # Lymph # (Auto) [place] # (Auto) Eos # (Auto) Seg Neutrophils % Seg Neuts % (Manual) Lymphocytes % (Manual) Seg Neutrophils # Seg Neutrophils # Man Lymphocytes # (Manual) Monocytes % (Manual) Eosinophils % (Manual) Monocytes # (Manual) Eosinophils # (Manual) D-Dimer Heparin Anti-Xa Level ABG pH POC ABG pCO2 POC ABG pO2 ABG pO2 ABG HCO3 ABG O2 Saturation ABG Base Excess ABG Hemoglobin ABG Oxyhemoglobin VBG pH ABG Sodium ABG Potassium ABG Glucose Oxyhemoglobin Sodium Potassium Chloride Carbon Dioxide BUN 61 H Creatinine Glucose 131 H POC Glucose 165 H 174 H Lactic Acid Calcium Ferritin AST Alkaline Phosphatase Magnesium Lactate Dehydrogenase Total Creatine Kinase CK-MB (CK-2) C-Reactive Protein Total Protein Albumin Troponin T HDL Cholesterol Arterial Blood Glucose Urine WBC (Auto) Urine Creatinine Urine Total Protein Phenytoin Coronavirus (PCR) Crossmatch 06/13/20 06/13/20 06/14/20 21:17 23:50 05:34 WBC RBC Hgb Hct MCHC RDW Lymph % (Auto) [place] % (Auto) Eos % (Auto) Lymph # [place] # Lymph # (Auto) [place] # (Auto) Eos # (Auto) Seg Neutrophils % Seg Neuts % (Manual) Lymphocytes % (Manual) Seg Neutrophils # Seg Neutrophils # Man Lymphocytes # (Manual) Monocytes % (Manual) Eosinophils % (Manual) Monocytes # (Manual) Eosinophils # (Manual) D-Dimer Heparin Anti-Xa Level 0.72 H ABG pH POC ABG pCO2 POC ABG pO2 ABG pO2 ABG HCO3 ABG O2 Saturation ABG Base Excess ABG Hemoglobin ABG Oxyhemoglobin VBG pH ABG Sodium ABG Potassium ABG Glucose Oxyhemoglobin Sodium 146 H Potassium Chloride 107.6 H Carbon Dioxide BUN 61 H Creatinine 1.3 H Glucose 135 H POC Glucose 146 H Lactic Acid Calcium Ferritin AST Alkaline Phosphatase Magnesium Lactate Dehydrogenase Total Creatine Kinase CK-MB (CK-2) C-Reactive Protein Total Protein Albumin Troponin T HDL Cholesterol Arterial Blood Glucose Urine WBC (Auto) Urine Creatinine Urine Total Protein Phenytoin Coronavirus (PCR) Crossmatch 06/14/20 06/14/20 06/14/20 06:11 09:28 11:30 WBC RBC Hgb Hct MCHC RDW Lymph % (Auto) [place] % (Auto) Eos % (Auto) Lymph # [place] # Lymph # (Auto) [place] # (Auto) Eos # (Auto) Seg Neutrophils % Seg Neuts % (Manual) Lymphocytes % (Manual) Seg Neutrophils # Seg Neutrophils # Man Lymphocytes # (Manual) Monocytes % (Manual) Eosinophils % (Manual) Monocytes # (Manual) Eosinophils # (Manual) D-Dimer Heparin Anti-Xa Level 0.90 H ABG pH POC ABG pCO2 POC ABG pO2 ABG pO2 ABG HCO3 ABG O2 Saturation ABG Base Excess ABG Hemoglobin ABG Oxyhemoglobin VBG pH ABG Sodium ABG Potassium ABG Glucose Oxyhemoglobin Sodium Potassium Chloride Carbon Dioxide BUN Creatinine Glucose POC Glucose 141 H 186 H Lactic Acid Calcium Ferritin AST Alkaline Phosphatase Magnesium Lactate Dehydrogenase Total Creatine Kinase CK-MB (CK-2) C-Reactive Protein Total Protein Albumin Troponin T HDL Cholesterol Arterial Blood Glucose Urine WBC (Auto) Urine Creatinine Urine Total Protein Phenytoin Coronavirus (PCR) Crossmatch 06/14/20 06/14/20 06/14/20 16:07 18:16 23:51 WBC RBC Hgb Hct MCHC RDW Lymph % (Auto) [place] % (Auto) Eos % (Auto) Lymph # [place] # Lymph # (Auto) [place] # (Auto) Eos # (Auto) Seg Neutrophils % Seg Neuts % (Manual) Lymphocytes % (Manual) Seg Neutrophils # Seg Neutrophils # Man Lymphocytes # (Manual) Monocytes % (Manual) Eosinophils % (Manual) Monocytes # (Manual) Eosinophils # (Manual) D-Dimer Heparin Anti-Xa Level 0.82 H ABG pH POC ABG pCO2 POC ABG pO2 ABG pO2 ABG HCO3 ABG O2 Saturation ABG Base Excess ABG Hemoglobin ABG Oxyhemoglobin VBG pH ABG Sodium ABG Potassium ABG Glucose Oxyhemoglobin Sodium Potassium Chloride Carbon Dioxide BUN Creatinine Glucose POC Glucose 106 H 154 H Lactic Acid Calcium Ferritin AST Alkaline Phosphatase Magnesium Lactate Dehydrogenase Total Creatine Kinase CK-MB (CK-2) C-Reactive Protein Total Protein Albumin Troponin T HDL Cholesterol Arterial Blood Glucose Urine WBC (Auto) Urine Creatinine Urine Total Protein Phenytoin Coronavirus (PCR) Crossmatch 06/15/20 06/15/20 06/15/20 04:24 04:24 05:59 WBC RBC 2.75 L Hgb 7.9 L Hct 24.0 L MCHC RDW 16.4 H Lymph % (Auto) 12.9 L [place] % (Auto) 8.7 H Eos % (Auto) 4.6 H Lymph # 1.1 L [place] # Lymph # (Auto) [place] # (Auto) Eos # (Auto) Seg Neutrophils % 73.2 H Seg Neuts % (Manual) Lymphocytes % (Manual) Seg Neutrophils # Seg Neutrophils # Man Lymphocytes # (Manual) Monocytes % (Manual) Eosinophils % (Manual) Monocytes # (Manual) Eosinophils # (Manual) D-Dimer Heparin Anti-Xa Level ABG pH POC ABG pCO2 POC ABG pO2 ABG pO2 ABG HCO3 ABG O2 Saturation ABG Base Excess ABG Hemoglobin ABG Oxyhemoglobin VBG pH ABG Sodium ABG Potassium ABG Glucose Oxyhemoglobin Sodium Potassium 3.4 L Chloride Carbon Dioxide BUN 55 H Creatinine 1.3 H Glucose 142 H POC Glucose 131 H Lactic Acid Calcium Ferritin AST Alkaline Phosphatase Magnesium Lactate Dehydrogenase Total Creatine Kinase CK-MB (CK-2) C-Reactive Protein Total Protein Albumin Troponin T HDL Cholesterol Arterial Blood Glucose Urine WBC (Auto) Urine Creatinine Urine Total Protein Phenytoin Coronavirus (PCR) Crossmatch 06/15/20 06/15/20 06/16/20 12:33 17:07 00:22 WBC RBC Hgb Hct MCHC RDW Lymph % (Auto) [place] % (Auto) Eos % (Auto) Lymph # [place] # Lymph # (Auto) [place] # (Auto) Eos # (Auto) Seg Neutrophils % Seg Neuts % (Manual) Lymphocytes % (Manual) Seg Neutrophils # Seg Neutrophils # Man Lymphocytes # (Manual) Monocytes % (Manual) Eosinophils % (Manual) Monocytes # (Manual) Eosinophils # (Manual) D-Dimer Heparin Anti-Xa Level 0.21 L ABG pH POC ABG pCO2 POC ABG pO2 ABG pO2 ABG HCO3 ABG O2 Saturation ABG Base Excess ABG Hemoglobin ABG Oxyhemoglobin VBG pH ABG Sodium ABG Potassium ABG Glucose Oxyhemoglobin Sodium Potassium Chloride Carbon Dioxide BUN Creatinine Glucose POC Glucose 180 H 185 H Lactic Acid Calcium Ferritin AST Alkaline Phosphatase Magnesium Lactate Dehydrogenase Total Creatine Kinase CK-MB (CK-2) C-Reactive Protein Total Protein Albumin Troponin T HDL Cholesterol Arterial Blood Glucose Urine WBC (Auto) Urine Creatinine Urine Total Protein Phenytoin Coronavirus (PCR) Crossmatch 06/16/20 06/16/20 06/16/20 01:45 08:06 09:15 WBC RBC Hgb Hct MCHC RDW Lymph % (Auto) [place] % (Auto) Eos % (Auto) Lymph # [place] # Lymph # (Auto) [place] # (Auto) Eos # (Auto) Seg Neutrophils % Seg Neuts % (Manual) Lymphocytes % (Manual) Seg Neutrophils # Seg Neutrophils # Man Lymphocytes # (Manual) Monocytes % (Manual) Eosinophils % (Manual) Monocytes # (Manual) Eosinophils # (Manual) D-Dimer Heparin Anti-Xa Level ABG pH POC ABG pCO2 POC ABG pO2 ABG pO2 ABG HCO3 ABG O2 Saturation ABG Base Excess ABG Hemoglobin ABG Oxyhemoglobin VBG pH ABG Sodium ABG Potassium ABG Glucose Oxyhemoglobin Sodium Potassium Chloride Carbon Dioxide BUN 49 H Creatinine Glucose 154 H POC Glucose 140 H 171 H Lactic Acid Calcium Ferritin AST Alkaline Phosphatase Magnesium Lactate Dehydrogenase Total Creatine Kinase CK-MB (CK-2) C-Reactive Protein Total Protein Albumin Troponin T HDL Cholesterol Arterial Blood Glucose Urine WBC (Auto) Urine Creatinine Urine Total Protein Phenytoin Coronavirus (PCR) Crossmatch 06/16/20 06/16/20 06/16/20 10:46 12:33 17:54 WBC RBC Hgb Hct MCHC RDW Lymph % (Auto) [place] % (Auto) Eos % (Auto) Lymph # [place] # Lymph # (Auto) [place] # (Auto) Eos # (Auto) Seg Neutrophils % Seg Neuts % (Manual) Lymphocytes % (Manual) Seg Neutrophils # Seg Neutrophils # Man Lymphocytes # (Manual) Monocytes % (Manual) Eosinophils % (Manual) Monocytes # (Manual) Eosinophils # (Manual) D-Dimer Heparin Anti-Xa Level 0.12 L ABG pH POC ABG pCO2 POC ABG pO2 ABG pO2 ABG HCO3 ABG O2 Saturation ABG Base Excess ABG Hemoglobin ABG Oxyhemoglobin VBG pH ABG Sodium ABG Potassium ABG Glucose Oxyhemoglobin Sodium Potassium Chloride Carbon Dioxide BUN Creatinine Glucose POC Glucose 166 H 151 H Lactic Acid Calcium Ferritin AST Alkaline Phosphatase Magnesium Lactate Dehydrogenase Total Creatine Kinase CK-MB (CK-2) C-Reactive Protein Total Protein Albumin Troponin T HDL Cholesterol Arterial Blood Glucose Urine WBC (Auto) Urine Creatinine Urine Total Protein Phenytoin Coronavirus (PCR) Crossmatch 06/16/20 06/17/20 06/17/20 18:47 00:00 02:19 WBC RBC Hgb Hct MCHC RDW Lymph % (Auto) [place] % (Auto) Eos % (Auto) Lymph # [place] # Lymph # (Auto) [place] # (Auto) Eos # (Auto) Seg Neutrophils % Seg Neuts % (Manual) Lymphocytes % (Manual) Seg Neutrophils # Seg Neutrophils # Man Lymphocytes # (Manual) Monocytes % (Manual) Eosinophils % (Manual) Monocytes # (Manual) Eosinophils # (Manual) D-Dimer Heparin Anti-Xa Level 0.73 H 0.77 H ABG pH POC ABG pCO2 POC ABG pO2 ABG pO2 ABG HCO3 ABG O2 Saturation ABG Base Excess ABG Hemoglobin ABG Oxyhemoglobin VBG pH ABG Sodium ABG Potassium ABG Glucose Oxyhemoglobin Sodium Potassium Chloride Carbon Dioxide BUN Creatinine Glucose POC Glucose 139 H Lactic Acid Calcium Ferritin AST Alkaline Phosphatase Magnesium Lactate Dehydrogenase Total Creatine Kinase CK-MB (CK-2) C-Reactive Protein Total Protein Albumin Troponin T HDL Cholesterol Arterial Blood Glucose Urine WBC (Auto) Urine Creatinine Urine Total Protein Phenytoin Coronavirus (PCR) Crossmatch 06/17/20 06/17/20 06/17/20 06:07 11:42 16:43 WBC RBC Hgb Hct MCHC RDW Lymph % (Auto) [place] % (Auto) Eos % (Auto) Lymph # [place] # Lymph # (Auto) [place] # (Auto) Eos # (Auto) Seg Neutrophils % Seg Neuts % (Manual) Lymphocytes % (Manual) Seg Neutrophils # Seg Neutrophils # Man Lymphocytes # (Manual) Monocytes % (Manual) Eosinophils % (Manual) Monocytes # (Manual) Eosinophils # (Manual) D-Dimer Heparin Anti-Xa Level 0.73 H ABG pH POC ABG pCO2 POC ABG pO2 ABG pO2 ABG HCO3 ABG O2 Saturation ABG Base Excess ABG Hemoglobin ABG Oxyhemoglobin VBG pH ABG Sodium ABG Potassium ABG Glucose Oxyhemoglobin Sodium Potassium Chloride Carbon Dioxide BUN Creatinine Glucose POC Glucose 169 H 169 H Lactic Acid Calcium Ferritin AST Alkaline Phosphatase Magnesium Lactate Dehydrogenase Total Creatine Kinase CK-MB (CK-2) C-Reactive Protein Total Protein Albumin Troponin T HDL Cholesterol Arterial Blood Glucose Urine WBC (Auto) Urine Creatinine Urine Total Protein Phenytoin Coronavirus (PCR) Crossmatch 06/17/20 06/17/20 06/17/20 18:18 23:08 23:16 WBC RBC Hgb Hct MCHC RDW Lymph % (Auto) [place] % (Auto) Eos % (Auto) Lymph # [place] # Lymph # (Auto) [place] # (Auto) Eos # (Auto) Seg Neutrophils % Seg Neuts % (Manual) Lymphocytes % (Manual) Seg Neutrophils # Seg Neutrophils # Man Lymphocytes # (Manual) Monocytes % (Manual) Eosinophils % (Manual) Monocytes # (Manual) Eosinophils # (Manual) D-Dimer Heparin Anti-Xa Level 0.71 H ABG pH POC ABG pCO2 POC ABG pO2 ABG pO2 ABG HCO3 ABG O2 Saturation ABG Base Excess ABG Hemoglobin ABG Oxyhemoglobin VBG pH ABG Sodium ABG Potassium ABG Glucose Oxyhemoglobin Sodium Potassium Chloride Carbon Dioxide BUN Creatinine Glucose POC Glucose 159 H 134 H Lactic Acid Calcium Ferritin AST Alkaline Phosphatase Magnesium Lactate Dehydrogenase Total Creatine Kinase CK-MB (CK-2) C-Reactive Protein Total Protein Albumin Troponin T HDL Cholesterol Arterial Blood Glucose Urine WBC (Auto) Urine Creatinine Urine Total Protein Phenytoin Coronavirus (PCR) Crossmatch 06/18/20 06/18/20 06/18/20 04:42 05:52 11:50 WBC RBC Hgb Hct MCHC RDW Lymph % (Auto) [place] % (Auto) Eos % (Auto) Lymph # [place] # Lymph # (Auto) [place] # (Auto) Eos # (Auto) Seg Neutrophils % Seg Neuts % (Manual) Lymphocytes % (Manual) Seg Neutrophils # Seg Neutrophils # Man Lymphocytes # (Manual) Monocytes % (Manual) Eosinophils % (Manual) Monocytes # (Manual) Eosinophils # (Manual) D-Dimer Heparin Anti-Xa Level ABG pH POC ABG pCO2 POC ABG pO2 ABG pO2 ABG HCO3 ABG O2 Saturation ABG Base Excess ABG Hemoglobin ABG Oxyhemoglobin VBG pH ABG Sodium ABG Potassium ABG Glucose Oxyhemoglobin Sodium Potassium Chloride Carbon Dioxide BUN 44 H Creatinine Glucose 115 H POC Glucose 171 H 167 H Lactic Acid Calcium Ferritin AST Alkaline Phosphatase Magnesium Lactate Dehydrogenase Total Creatine Kinase CK-MB (CK-2) C-Reactive Protein Total Protein Albumin Troponin T HDL Cholesterol Arterial Blood Glucose Urine WBC (Auto) Urine Creatinine Urine Total Protein Phenytoin Coronavirus (PCR) Crossmatch 06/18/20 06/19/20 06/19/20 23:46 05:48 07:52 WBC RBC Hgb Hct MCHC RDW Lymph % (Auto) [place] % (Auto) Eos % (Auto) Lymph # [place] # Lymph # (Auto) [place] # (Auto) Eos # (Auto) Seg Neutrophils % Seg Neuts % (Manual) Lymphocytes % (Manual) Seg Neutrophils # Seg Neutrophils # Man Lymphocytes # (Manual) Monocytes % (Manual) Eosinophils % (Manual) Monocytes # (Manual) Eosinophils # (Manual) D-Dimer Heparin Anti-Xa Level ABG pH POC ABG pCO2 POC ABG pO2 ABG pO2 ABG HCO3 ABG O2 Saturation ABG Base Excess ABG Hemoglobin ABG Oxyhemoglobin VBG pH ABG Sodium ABG Potassium ABG Glucose Oxyhemoglobin Sodium Potassium Chloride Carbon Dioxide BUN Creatinine Glucose POC Glucose 130 H 207 H 175 H Lactic Acid Calcium Ferritin AST Alkaline Phosphatase Magnesium Lactate Dehydrogenase Total Creatine Kinase CK-MB (CK-2) C-Reactive Protein Total Protein Albumin Troponin T HDL Cholesterol Arterial Blood Glucose Urine WBC (Auto) Urine Creatinine Urine Total Protein Phenytoin Coronavirus (PCR) Crossmatch 06/19/20 06/19/20 06/20/20 11:42 22:54 05:17 WBC RBC Hgb Hct MCHC RDW Lymph % (Auto) [place] % (Auto) Eos % (Auto) Lymph # [place] # Lymph # (Auto) [place] # (Auto) Eos # (Auto) Seg Neutrophils % Seg Neuts % (Manual) Lymphocytes % (Manual) Seg Neutrophils # Seg Neutrophils # Man Lymphocytes # (Manual) Monocytes % (Manual) Eosinophils % (Manual) Monocytes # (Manual) Eosinophils # (Manual) D-Dimer Heparin Anti-Xa Level ABG pH POC ABG pCO2 POC ABG pO2 ABG pO2 ABG HCO3 ABG O2 Saturation ABG Base Excess ABG Hemoglobin ABG Oxyhemoglobin VBG pH ABG Sodium ABG Potassium ABG Glucose Oxyhemoglobin Sodium Potassium Chloride Carbon Dioxide BUN Creatinine Glucose POC Glucose 166 H 135 H 218 H Lactic Acid Calcium Ferritin AST Alkaline Phosphatase Magnesium Lactate Dehydrogenase Total Creatine Kinase CK-MB (CK-2) C-Reactive Protein Total Protein Albumin Troponin T HDL Cholesterol Arterial Blood Glucose Urine WBC (Auto) Urine Creatinine Urine Total Protein Phenytoin Coronavirus (PCR) Crossmatch 06/20/20 06/20/20 06/20/20 12:04 16:25 16:35 WBC RBC Hgb Hct MCHC RDW Lymph % (Auto) [place] % (Auto) Eos % (Auto) Lymph # [place] # Lymph # (Auto) [place] # (Auto) Eos # (Auto) Seg Neutrophils % Seg Neuts % (Manual) Lymphocytes % (Manual) Seg Neutrophils # Seg Neutrophils # Man Lymphocytes # (Manual) Monocytes % (Manual) Eosinophils % (Manual) Monocytes # (Manual) Eosinophils # (Manual) D-Dimer Heparin Anti-Xa Level ABG pH POC ABG pCO2 POC ABG pO2 ABG pO2 59.6 L ABG HCO3 28.7 H ABG O2 Saturation 93.5 L ABG Base Excess 3.4 H ABG Hemoglobin 7.2 L ABG Oxyhemoglobin VBG pH ABG Sodium ABG Potassium ABG Glucose Oxyhemoglobin 91.3 L Sodium Potassium Chloride Carbon Dioxide BUN Creatinine Glucose POC Glucose 194 H 137 H Lactic Acid Calcium Ferritin AST Alkaline Phosphatase Magnesium Lactate Dehydrogenase Total Creatine Kinase CK-MB (CK-2) C-Reactive Protein Total Protein Albumin Troponin T HDL Cholesterol Arterial Blood Glucose Urine WBC (Auto) Urine Creatinine Urine Total Protein Phenytoin Coronavirus (PCR) Crossmatch 06/20/20 06/21/20 06/21/20 23:59 06:25 12:01 WBC RBC Hgb Hct MCHC RDW Lymph % (Auto) [place] % (Auto) Eos % (Auto) Lymph # [place] # Lymph # (Auto) [place] # (Auto) Eos # (Auto) Seg Neutrophils % Seg Neuts % (Manual) Lymphocytes % (Manual) Seg Neutrophils # Seg Neutrophils # Man Lymphocytes # (Manual) Monocytes % (Manual) Eosinophils % (Manual) Monocytes # (Manual) Eosinophils # (Manual) D-Dimer Heparin Anti-Xa Level ABG pH POC ABG pCO2 POC ABG pO2 ABG pO2 ABG HCO3 ABG O2 Saturation ABG Base Excess ABG Hemoglobin ABG Oxyhemoglobin VBG pH ABG Sodium ABG Potassium ABG Glucose Oxyhemoglobin Sodium Potassium Chloride Carbon Dioxide BUN Creatinine Glucose POC Glucose 156 H 177 H 195 H Lactic Acid Calcium Ferritin AST Alkaline Phosphatase Magnesium Lactate Dehydrogenase Total Creatine Kinase CK-MB (CK-2) C-Reactive Protein Total Protein Albumin Troponin T HDL Cholesterol Arterial Blood Glucose Urine WBC (Auto) Urine Creatinine Urine Total Protein Phenytoin Coronavirus (PCR) Crossmatch 06/21/20 06/21/20 06/22/20 17:04 21:51 05:06 WBC RBC Hgb Hct MCHC RDW Lymph % (Auto) [place] % (Auto) Eos % (Auto) Lymph # [place] # Lymph # (Auto) [place] # (Auto) Eos # (Auto) Seg Neutrophils % Seg Neuts % (Manual) Lymphocytes % (Manual) Seg Neutrophils # Seg Neutrophils # Man Lymphocytes # (Manual) Monocytes % (Manual) Eosinophils % (Manual) Monocytes # (Manual) Eosinophils # (Manual) D-Dimer Heparin Anti-Xa Level ABG pH POC ABG pCO2 POC ABG pO2 ABG pO2 ABG HCO3 ABG O2 Saturation ABG Base Excess ABG Hemoglobin ABG Oxyhemoglobin VBG pH ABG Sodium ABG Potassium ABG Glucose Oxyhemoglobin Sodium Potassium Chloride Carbon Dioxide BUN Creatinine Glucose POC Glucose 156 H 154 H 167 H Lactic Acid Calcium Ferritin AST Alkaline Phosphatase Magnesium Lactate Dehydrogenase Total Creatine Kinase CK-MB (CK-2) C-Reactive Protein Total Protein Albumin Troponin T HDL Cholesterol Arterial Blood Glucose Urine WBC (Auto) Urine Creatinine Urine Total Protein Phenytoin Coronavirus (PCR) Crossmatch 06/22/20 06/22/20 06/22/20 11:20 15:27 16:58 WBC RBC Hgb Hct MCHC RDW Lymph % (Auto) [place] % (Auto) Eos % (Auto) Lymph # [place] # Lymph # (Auto) [place] # (Auto) Eos # (Auto) Seg Neutrophils % Seg Neuts % (Manual) Lymphocytes % (Manual) Seg Neutrophils # Seg Neutrophils # Man Lymphocytes # (Manual) Monocytes % (Manual) Eosinophils % (Manual) Monocytes # (Manual) Eosinophils # (Manual) D-Dimer Heparin Anti-Xa Level ABG pH 7.206 L POC ABG pCO2 79.9 H POC ABG pO2 ABG pO2 ABG HCO3 ABG O2 Saturation ABG Base Excess ABG Hemoglobin 8.3 L ABG Oxyhemoglobin VBG pH ABG Sodium ABG Potassium ABG Glucose Oxyhemoglobin Sodium Potassium Chloride Carbon Dioxide BUN Creatinine Glucose POC Glucose 181 H 230 H Lactic Acid Calcium Ferritin AST Alkaline Phosphatase Magnesium Lactate Dehydrogenase Total Creatine Kinase CK-MB (CK-2) C-Reactive Protein Total Protein Albumin Troponin T HDL Cholesterol Arterial Blood Glucose Urine WBC (Auto) Urine Creatinine Urine Total Protein Phenytoin Coronavirus (PCR) Crossmatch 06/22/20 06/23/20 06/23/20 22:26 05:49 05:49 WBC RBC 2.58 L Hgb 7.4 L Hct 23.2 L MCHC RDW 17.0 H Lymph % (Auto) [place] % (Auto) 11.2 H Eos % (Auto) Lymph # 1.0 L [place] # Lymph # (Auto) [place] # (Auto) Eos # (Auto) Seg Neutrophils % Seg Neuts % (Manual) Lymphocytes % (Manual) Seg Neutrophils # Seg Neutrophils # Man Lymphocytes # (Manual) Monocytes % (Manual) Eosinophils % (Manual) Monocytes # (Manual) Eosinophils # (Manual) D-Dimer Heparin Anti-Xa Level ABG pH POC ABG pCO2 POC ABG pO2 ABG pO2 ABG HCO3 ABG O2 Saturation ABG Base Excess ABG Hemoglobin ABG Oxyhemoglobin VBG pH ABG Sodium ABG Potassium ABG Glucose Oxyhemoglobin Sodium Potassium Chloride Carbon Dioxide BUN 68 H Creatinine 2.4 H Glucose 198 H POC Glucose 195 H Lactic Acid Calcium Ferritin AST Alkaline Phosphatase Magnesium Lactate Dehydrogenase Total Creatine Kinase CK-MB (CK-2) C-Reactive Protein Total Protein Albumin Troponin T HDL Cholesterol Arterial Blood Glucose Urine WBC (Auto) Urine Creatinine Urine Total Protein Phenytoin Coronavirus (PCR) Crossmatch 06/23/20 06/23/20 06/23/20 05:50 12:29 12:34 WBC RBC Hgb Hct MCHC RDW Lymph % (Auto) [place] % (Auto) Eos % (Auto) Lymph # [place] # Lymph # (Auto) [place] # (Auto) Eos # (Auto) Seg Neutrophils % Seg Neuts % (Manual) Lymphocytes % (Manual) Seg Neutrophils # Seg Neutrophils # Man Lymphocytes # (Manual) Monocytes % (Manual) Eosinophils % (Manual) Monocytes # (Manual) Eosinophils # (Manual) D-Dimer Heparin Anti-Xa Level ABG pH POC ABG pCO2 54.7 H POC ABG pO2 68.8 L ABG pO2 ABG HCO3 ABG O2 Saturation ABG Base Excess ABG Hemoglobin 9.8 L ABG Oxyhemoglobin 92.6 L VBG pH ABG Sodium ABG Potassium ABG Glucose Oxyhemoglobin Sodium Potassium Chloride Carbon Dioxide BUN Creatinine Glucose POC Glucose 202 H 218 H Lactic Acid Calcium Ferritin AST Alkaline Phosphatase Magnesium Lactate Dehydrogenase Total Creatine Kinase CK-MB (CK-2) C-Reactive Protein Total Protein Albumin Troponin T HDL Cholesterol Arterial Blood Glucose Urine WBC (Auto) Urine Creatinine Urine Total Protein Phenytoin Coronavirus (PCR) Crossmatch 06/23/20 06/23/20 06/24/20 16:02 22:22 01:06 WBC RBC Hgb Hct MCHC RDW Lymph % (Auto) [place] % (Auto) Eos % (Auto) Lymph # [place] # Lymph # (Auto) [place] # (Auto) Eos # (Auto) Seg Neutrophils % Seg Neuts % (Manual) Lymphocytes % (Manual) Seg Neutrophils # Seg Neutrophils # Man Lymphocytes # (Manual) Monocytes % (Manual) Eosinophils % (Manual) Monocytes # (Manual) Eosinophils # (Manual) D-Dimer Heparin Anti-Xa Level ABG pH POC ABG pCO2 POC ABG pO2 ABG pO2 ABG HCO3 ABG O2 Saturation ABG Base Excess ABG Hemoglobin ABG Oxyhemoglobin VBG pH ABG Sodium ABG Potassium ABG Glucose Oxyhemoglobin Sodium Potassium Chloride Carbon Dioxide BUN Creatinine Glucose POC Glucose 190 H 166 H 171 H Lactic Acid Calcium Ferritin AST Alkaline Phosphatase Magnesium Lactate Dehydrogenase Total Creatine Kinase CK-MB (CK-2) C-Reactive Protein Total Protein Albumin Troponin T HDL Cholesterol Arterial Blood Glucose Urine WBC (Auto) Urine Creatinine Urine Total Protein Phenytoin Coronavirus (PCR) Crossmatch 06/24/20 06/24/20 06/24/20 04:48 05:35 11:48 WBC RBC Hgb Hct MCHC RDW Lymph % (Auto) [place] % (Auto) Eos % (Auto) Lymph # [place] # Lymph # (Auto) [place] # (Auto) Eos # (Auto) Seg Neutrophils % Seg Neuts % (Manual) Lymphocytes % (Manual) Seg Neutrophils # Seg Neutrophils # Man Lymphocytes # (Manual) Monocytes % (Manual) Eosinophils % (Manual) Monocytes # (Manual) Eosinophils # (Manual) D-Dimer Heparin Anti-Xa Level ABG pH POC ABG pCO2 POC ABG pO2 ABG pO2 ABG HCO3 ABG O2 Saturation ABG Base Excess ABG Hemoglobin ABG Oxyhemoglobin VBG pH ABG Sodium ABG Potassium ABG Glucose Oxyhemoglobin Sodium Potassium Chloride Carbon Dioxide BUN 75 H Creatinine 2.6 H Glucose 179 H POC Glucose 172 H 153 H Lactic Acid Calcium Ferritin AST Alkaline Phosphatase Magnesium Lactate Dehydrogenase Total Creatine Kinase CK-MB (CK-2) C-Reactive Protein Total Protein Albumin Troponin T HDL Cholesterol Arterial Blood Glucose Urine WBC (Auto) Urine Creatinine Urine Total Protein Phenytoin Coronavirus (PCR) Crossmatch 06/24/20 06/24/20 06/25/20 16:38 21:52 12:00 WBC RBC Hgb Hct MCHC RDW Lymph % (Auto) [place] % (Auto) Eos % (Auto) Lymph # [place] # Lymph # (Auto) [place] # (Auto) Eos # (Auto) Seg Neutrophils % Seg Neuts % (Manual) Lymphocytes % (Manual) Seg Neutrophils # Seg Neutrophils # Man Lymphocytes # (Manual) Monocytes % (Manual) Eosinophils % (Manual) Monocytes # (Manual) Eosinophils # (Manual) D-Dimer Heparin Anti-Xa Level ABG pH POC ABG pCO2 POC ABG pO2 ABG pO2 ABG HCO3 ABG O2 Saturation ABG Base Excess ABG Hemoglobin ABG Oxyhemoglobin VBG pH ABG Sodium ABG Potassium ABG Glucose Oxyhemoglobin Sodium Potassium Chloride Carbon Dioxide BUN Creatinine Glucose POC Glucose 123 H 115 H 203 H Lactic Acid Calcium Ferritin AST Alkaline Phosphatase Magnesium Lactate Dehydrogenase Total Creatine Kinase CK-MB (CK-2) C-Reactive Protein Total Protein Albumin Troponin T HDL Cholesterol Arterial Blood Glucose Urine WBC (Auto) Urine Creatinine Urine Total Protein Phenytoin Coronavirus (PCR) Crossmatch 06/25/20 06/25/20 06/25/20 15:43 16:37 23:02 WBC RBC Hgb Hct MCHC RDW Lymph % (Auto) [place] % (Auto) Eos % (Auto) Lymph # [place] # Lymph # (Auto) [place] # (Auto) Eos # (Auto) Seg Neutrophils % Seg Neuts % (Manual) Lymphocytes % (Manual) Seg Neutrophils # Seg Neutrophils # Man Lymphocytes # (Manual) Monocytes % (Manual) Eosinophils % (Manual) Monocytes # (Manual) Eosinophils # (Manual) D-Dimer Heparin Anti-Xa Level ABG pH POC ABG pCO2 POC ABG pO2 ABG pO2 ABG HCO3 ABG O2 Saturation ABG Base Excess ABG Hemoglobin ABG Oxyhemoglobin VBG pH ABG Sodium ABG Potassium ABG Glucose Oxyhemoglobin Sodium Potassium Chloride Carbon Dioxide BUN 71 H Creatinine 1.8 H Glucose 170 H POC Glucose 191 H 126 H Lactic Acid Calcium 8.2 L Ferritin AST Alkaline Phosphatase Magnesium Lactate Dehydrogenase Total Creatine Kinase CK-MB (CK-2) C-Reactive Protein Total Protein Albumin Troponin T HDL Cholesterol Arterial Blood Glucose Urine WBC (Auto) Urine Creatinine Urine Total Protein Phenytoin Coronavirus (PCR) Crossmatch 06/26/20 06/26/20 06/26/20 06:34 06:34 09:27 WBC RBC 2.41 L Hgb 6.9 L Hct 21.5 L MCHC RDW 16.7 H Lymph % (Auto) 10.9 L [place] % (Auto) 9.6 H Eos % (Auto) Lymph # 0.7 L [place] # Lymph # (Auto) [place] # (Auto) Eos # (Auto) Seg Neutrophils % 75.4 H Seg Neuts % (Manual) Lymphocytes % (Manual) Seg Neutrophils # Seg Neutrophils # Man Lymphocytes # (Manual) Monocytes % (Manual) Eosinophils % (Manual) Monocytes # (Manual) Eosinophils # (Manual) D-Dimer Heparin Anti-Xa Level ABG pH POC ABG pCO2 POC ABG pO2 ABG pO2 ABG HCO3 ABG O2 Saturation ABG Base Excess ABG Hemoglobin ABG Oxyhemoglobin VBG pH ABG Sodium ABG Potassium ABG Glucose Oxyhemoglobin Sodium Potassium Chloride Carbon Dioxide BUN 77 H Creatinine 1.9 H Glucose 190 H POC Glucose Lactic Acid Calcium Ferritin AST Alkaline Phosphatase Magnesium Lactate Dehydrogenase Total Creatine Kinase CK-MB (CK-2) C-Reactive Protein Total Protein Albumin Troponin T HDL Cholesterol Arterial Blood Glucose Urine WBC (Auto) Urine Creatinine Urine Total Protein Phenytoin Coronavirus (PCR) Crossmatch See Detail 06/26/20 06/26/20 06/26/20 12:15 16:28 17:28 WBC RBC Hgb Hct MCHC RDW Lymph % (Auto) [place] % (Auto) Eos % (Auto) Lymph # [place] # Lymph # (Auto) [place] # (Auto) Eos # (Auto) Seg Neutrophils % Seg Neuts % (Manual) Lymphocytes % (Manual) Seg Neutrophils # Seg Neutrophils # Man Lymphocytes # (Manual) Monocytes % (Manual) Eosinophils % (Manual) Monocytes # (Manual) Eosinophils # (Manual) D-Dimer Heparin Anti-Xa Level ABG pH POC ABG pCO2 POC ABG pO2 ABG pO2 ABG HCO3 ABG O2 Saturation ABG Base Excess ABG Hemoglobin ABG Oxyhemoglobin VBG pH ABG Sodium ABG Potassium ABG Glucose Oxyhemoglobin Sodium Potassium Chloride Carbon Dioxide BUN Creatinine Glucose POC Glucose 187 H 149 H 189 H Lactic Acid Calcium Ferritin AST Alkaline Phosphatase Magnesium Lactate Dehydrogenase Total Creatine Kinase CK-MB (CK-2) C-Reactive Protein Total Protein Albumin Troponin T HDL Cholesterol Arterial Blood Glucose Urine WBC (Auto) Urine Creatinine Urine Total Protein Phenytoin Coronavirus (PCR) Crossmatch 06/26/20 06/26/20 06/26/20 18:30 18:30 18:30 WBC RBC 2.87 L Hgb 8.2 L Hct 25.9 L MCHC RDW 17.8 H Lymph % (Auto) [place] % (Auto) Eos % (Auto) Lymph # [place] # Lymph # (Auto) [place] # (Auto) Eos # (Auto) Seg Neutrophils % Seg Neuts % (Manual) 83.0 H Lymphocytes % (Manual) 8.0 L Seg Neutrophils # Seg Neutrophils # Man Lymphocytes # (Manual) 0.6 L Monocytes % (Manual) Eosinophils % (Manual) Monocytes # (Manual) Eosinophils # (Manual) D-Dimer Heparin Anti-Xa Level ABG pH POC ABG pCO2 POC ABG pO2 ABG pO2 ABG HCO3 ABG O2 Saturation ABG Base Excess ABG Hemoglobin ABG Oxyhemoglobin VBG pH ABG Sodium ABG Potassium ABG Glucose Oxyhemoglobin Sodium Potassium Chloride Carbon Dioxide BUN 80 H Creatinine 2.1 H Glucose 260 H POC Glucose Lactic Acid 4.30 H* Calcium 8.3 L Ferritin AST Alkaline Phosphatase Magnesium Lactate Dehydrogenase Total Creatine Kinase CK-MB (CK-2) C-Reactive Protein Total Protein Albumin Troponin T HDL Cholesterol Arterial Blood Glucose Urine WBC (Auto) Urine Creatinine Urine Total Protein Phenytoin Coronavirus (PCR) Crossmatch 06/26/20 06/27/20 06/27/20 18:50 01:00 04:29 WBC RBC Hgb Hct MCHC RDW Lymph % (Auto) [place] % (Auto) Eos % (Auto) Lymph # [place] # Lymph # (Auto) [place] # (Auto) Eos # (Auto) Seg Neutrophils % Seg Neuts % (Manual) Lymphocytes % (Manual) Seg Neutrophils # Seg Neutrophils # Man Lymphocytes # (Manual) Monocytes % (Manual) Eosinophils % (Manual) Monocytes # (Manual) Eosinophils # (Manual) D-Dimer Heparin Anti-Xa Level ABG pH 7.296 L POC ABG pCO2 POC ABG pO2 ABG pO2 116.5 H 200.5 H ABG HCO3 28.4 H ABG O2 Saturation 99.3 H ABG Base Excess 3.7 H ABG Hemoglobin 5.6 L ABG Oxyhemoglobin VBG pH ABG Sodium ABG Potassium ABG Glucose Oxyhemoglobin Sodium Potassium Chloride Carbon Dioxide BUN Creatinine Glucose POC Glucose 123 H Lactic Acid Calcium Ferritin AST Alkaline Phosphatase Magnesium Lactate Dehydrogenase Total Creatine Kinase CK-MB (CK-2) C-Reactive Protein Total Protein Albumin Troponin T HDL Cholesterol Arterial Blood Glucose Urine WBC (Auto) Urine Creatinine Urine Total Protein Phenytoin Coronavirus (PCR) Crossmatch 06/27/20 06/27/20 06/27/20 05:00 05:00 05:00 WBC RBC 2.75 L Hgb 7.9 L Hct 24.3 L MCHC RDW 17.1 H Lymph % (Auto) 8.5 L [place] % (Auto) 12.6 H Eos % (Auto) Lymph # 0.7 L [place] # 1.0 H Lymph # (Auto) [place] # (Auto) Eos # (Auto) Seg Neutrophils % 77.5 H Seg Neuts % (Manual) Lymphocytes % (Manual) Seg Neutrophils # Seg Neutrophils # Man Lymphocytes # (Manual) Monocytes % (Manual) Eosinophils % (Manual) Monocytes # (Manual) Eosinophils # (Manual) D-Dimer Heparin Anti-Xa Level ABG pH POC ABG pCO2 POC ABG pO2 ABG pO2 ABG HCO3 ABG O2 Saturation ABG Base Excess ABG Hemoglobin ABG Oxyhemoglobin VBG pH ABG Sodium ABG Potassium ABG Glucose Oxyhemoglobin Sodium Potassium Chloride Carbon Dioxide BUN 80 H Creatinine 2.0 H Glucose 129 H POC Glucose Lactic Acid 0.60 L Calcium 7.9 L Ferritin AST Alkaline Phosphatase Magnesium Lactate Dehydrogenase Total Creatine Kinase CK-MB (CK-2) C-Reactive Protein Total Protein Albumin Troponin T HDL Cholesterol Arterial Blood Glucose Urine WBC (Auto) Urine Creatinine Urine Total Protein Phenytoin Coronavirus (PCR) Crossmatch 06/27/20 06/27/20 06/27/20 05:23 13:46 17:25 WBC RBC Hgb Hct MCHC RDW Lymph % (Auto) [place] % (Auto) Eos % (Auto) Lymph # [place] # Lymph # (Auto) [place] # (Auto) Eos # (Auto) Seg Neutrophils % Seg Neuts % (Manual) Lymphocytes % (Manual) Seg Neutrophils # Seg Neutrophils # Man Lymphocytes # (Manual) Monocytes % (Manual) Eosinophils % (Manual) Monocytes # (Manual) Eosinophils # (Manual) D-Dimer Heparin Anti-Xa Level ABG pH POC ABG pCO2 POC ABG pO2 ABG pO2 ABG HCO3 ABG O2 Saturation ABG Base Excess ABG Hemoglobin ABG Oxyhemoglobin VBG pH ABG Sodium ABG Potassium ABG Glucose Oxyhemoglobin Sodium Potassium Chloride Carbon Dioxide BUN Creatinine Glucose POC Glucose 109 H 158 H 162 H Lactic Acid Calcium Ferritin AST Alkaline Phosphatase Magnesium Lactate Dehydrogenase Total Creatine Kinase CK-MB (CK-2) C-Reactive Protein Total Protein Albumin Troponin T HDL Cholesterol Arterial Blood Glucose Urine WBC (Auto) Urine Creatinine Urine Total Protein Phenytoin Coronavirus (PCR) Crossmatch 06/27/20 06/27/20 06/28/20 18:43 23:46 04:05 WBC RBC Hgb 7.7 L Hct 22.1 L MCHC RDW Lymph % (Auto) [place] % (Auto) Eos % (Auto) Lymph # [place] # Lymph # (Auto) [place] # (Auto) Eos # (Auto) Seg Neutrophils % Seg Neuts % (Manual) Lymphocytes % (Manual) Seg Neutrophils # Seg Neutrophils # Man Lymphocytes # (Manual) Monocytes % (Manual) Eosinophils % (Manual) Monocytes # (Manual) Eosinophils # (Manual) D-Dimer Heparin Anti-Xa Level ABG pH POC ABG pCO2 POC ABG pO2 ABG pO2 102.7 H ABG HCO3 28.7 H ABG O2 Saturation ABG Base Excess 3.7 H ABG Hemoglobin ABG Oxyhemoglobin VBG pH ABG Sodium ABG Potassium ABG Glucose Oxyhemoglobin Sodium Potassium Chloride Carbon Dioxide BUN Creatinine Glucose POC Glucose 142 H Lactic Acid Calcium Ferritin AST Alkaline Phosphatase Magnesium Lactate Dehydrogenase Total Creatine Kinase CK-MB (CK-2) C-Reactive Protein Total Protein Albumin Troponin T HDL Cholesterol Arterial Blood Glucose Urine WBC (Auto) Urine Creatinine Urine Total Protein Phenytoin Coronavirus (PCR) Crossmatch 06/28/20 06/28/20 06/28/20 09:47 09:47 12:02 WBC RBC 2.53 L Hgb 7.4 L Hct 22.2 L MCHC RDW 16.8 H Lymph % (Auto) [place] % (Auto) 13.5 H Eos % (Auto) Lymph # 1.1 L [place] # 1.0 H Lymph # (Auto) [place] # (Auto) Eos # (Auto) Seg Neutrophils % Seg Neuts % (Manual) Lymphocytes % (Manual) Seg Neutrophils # Seg Neutrophils # Man Lymphocytes # (Manual) Monocytes % (Manual) Eosinophils % (Manual) Monocytes # (Manual) Eosinophils # (Manual) D-Dimer Heparin Anti-Xa Level ABG pH POC ABG pCO2 POC ABG pO2 ABG pO2 ABG HCO3 ABG O2 Saturation ABG Base Excess ABG Hemoglobin ABG Oxyhemoglobin VBG pH ABG Sodium ABG Potassium ABG Glucose Oxyhemoglobin Sodium Potassium Chloride Carbon Dioxide BUN 80 H Creatinine 1.5 H Glucose 139 H POC Glucose 169 H Lactic Acid Calcium 7.9 L Ferritin AST Alkaline Phosphatase Magnesium Lactate Dehydrogenase Total Creatine Kinase CK-MB (CK-2) C-Reactive Protein Total Protein 5.0 L Albumin 2.1 L Troponin T HDL Cholesterol Arterial Blood Glucose Urine WBC (Auto) Urine Creatinine Urine Total Protein Phenytoin Coronavirus (PCR) Crossmatch 06/28/20 06/28/20 06/28/20 12:30 12:30 17:24 WBC RBC 2.38 L Hgb 7.3 L Hct 20.9 L MCHC 35 H RDW 16.7 H Lymph % (Auto) [place] % (Auto) Eos % (Auto) Lymph # [place] # Lymph # (Auto) [place] # (Auto) Eos # (Auto) Seg Neutrophils % Seg Neuts % (Manual) Lymphocytes % (Manual) Seg Neutrophils # Seg Neutrophils # Man Lymphocytes # (Manual) Monocytes % (Manual) Eosinophils % (Manual) Monocytes # (Manual) Eosinophils # (Manual) D-Dimer Heparin Anti-Xa Level ABG pH POC ABG pCO2 POC ABG pO2 ABG pO2 ABG HCO3 ABG O2 Saturation ABG Base Excess ABG Hemoglobin ABG Oxyhemoglobin VBG pH ABG Sodium ABG Potassium ABG Glucose Oxyhemoglobin Sodium Potassium Chloride Carbon Dioxide BUN 74 H Creatinine 1.5 H Glucose 143 H POC Glucose 173 H Lactic Acid Calcium 7.5 L Ferritin AST Alkaline Phosphatase Magnesium Lactate Dehydrogenase Total Creatine Kinase CK-MB (CK-2) C-Reactive Protein Total Protein Albumin Troponin T HDL Cholesterol Arterial Blood Glucose Urine WBC (Auto) Urine Creatinine Urine Total Protein Phenytoin Coronavirus (PCR) Crossmatch 06/29/20 06/29/20 06/29/20 00:02 03:54 04:38 WBC RBC 2.55 L Hgb 7.3 L Hct 22.4 L MCHC RDW 16.4 H Lymph % (Auto) 13.3 L [place] % (Auto) 12.5 H Eos % (Auto) Lymph # 1.1 L [place] # 1.0 H Lymph # (Auto) [place] # (Auto) Eos # (Auto) Seg Neutrophils % Seg Neuts % (Manual) Lymphocytes % (Manual) Seg Neutrophils # Seg Neutrophils # Man Lymphocytes # (Manual) Monocytes % (Manual) Eosinophils % (Manual) Monocytes # (Manual) Eosinophils # (Manual) D-Dimer Heparin Anti-Xa Level ABG pH POC ABG pCO2 POC ABG pO2 ABG pO2 ABG HCO3 26.9 H ABG O2 Saturation ABG Base Excess ABG Hemoglobin 6.9 L ABG Oxyhemoglobin VBG pH ABG Sodium ABG Potassium ABG Glucose Oxyhemoglobin Sodium Potassium Chloride Carbon Dioxide BUN Creatinine Glucose POC Glucose 142 H Lactic Acid Calcium Ferritin AST Alkaline Phosphatase Magnesium Lactate Dehydrogenase Total Creatine Kinase CK-MB (CK-2) C-Reactive Protein Total Protein Albumin Troponin T HDL Cholesterol Arterial Blood Glucose Urine WBC (Auto) Urine Creatinine Urine Total Protein Phenytoin Coronavirus (PCR) Crossmatch 06/29/20 06/29/20 06/29/20 04:38 05:38 12:25 WBC RBC Hgb Hct MCHC RDW Lymph % (Auto) [place] % (Auto) Eos % (Auto) Lymph # [place] # Lymph # (Auto) [place] # (Auto) Eos # (Auto) Seg Neutrophils % Seg Neuts % (Manual) Lymphocytes % (Manual) Seg Neutrophils # Seg Neutrophils # Man Lymphocytes # (Manual) Monocytes % (Manual) Eosinophils % (Manual) Monocytes # (Manual) Eosinophils # (Manual) D-Dimer Heparin Anti-Xa Level ABG pH POC ABG pCO2 POC ABG pO2 ABG pO2 ABG HCO3 ABG O2 Saturation ABG Base Excess ABG Hemoglobin ABG Oxyhemoglobin VBG pH ABG Sodium ABG Potassium ABG Glucose Oxyhemoglobin Sodium Potassium Chloride 107.8 H Carbon Dioxide BUN 72 H Creatinine 1.4 H Glucose 127 H POC Glucose 122 H 138 H Lactic Acid Calcium 7.4 L Ferritin AST Alkaline Phosphatase Magnesium Lactate Dehydrogenase Total Creatine Kinase CK-MB (CK-2) C-Reactive Protein Total Protein Albumin Troponin T HDL Cholesterol Arterial Blood Glucose Urine WBC (Auto) Urine Creatinine Urine Total Protein Phenytoin Coronavirus (PCR) Crossmatch 06/29/20 06/29/20 06/29/20 14:45 14:45 14:45 WBC RBC Hgb Hct MCHC RDW Lymph % (Auto) [place] % (Auto) Eos % (Auto) Lymph # [place] # Lymph # (Auto) [place] # (Auto) Eos # (Auto) Seg Neutrophils % Seg Neuts % (Manual) Lymphocytes % (Manual) Seg Neutrophils # Seg Neutrophils # Man Lymphocytes # (Manual) Monocytes % (Manual) Eosinophils % (Manual) Monocytes # (Manual) Eosinophils # (Manual) D-Dimer 2310.15 H Heparin Anti-Xa Level ABG pH POC ABG pCO2 POC ABG pO2 ABG pO2 ABG HCO3 ABG O2 Saturation ABG Base Excess ABG Hemoglobin ABG Oxyhemoglobin VBG pH ABG Sodium ABG Potassium ABG Glucose Oxyhemoglobin Sodium Potassium Chloride Carbon Dioxide BUN Creatinine Glucose POC Glucose Lactic Acid Calcium Ferritin 223.6 H AST Alkaline Phosphatase Magnesium Lactate Dehydrogenase 367 H Total Creatine Kinase CK-MB (CK-2) C-Reactive Protein 3.60 H Total Protein Albumin Troponin T HDL Cholesterol Arterial Blood Glucose Urine WBC (Auto) Urine Creatinine Urine Total Protein Phenytoin Coronavirus (PCR) Crossmatch 06/29/20 06/29/20 06/29/20 18:27 23:35 Unknown WBC RBC Hgb Hct MCHC RDW Lymph % (Auto) [place] % (Auto) Eos % (Auto) Lymph # [place] # Lymph # (Auto) [place] # (Auto) Eos # (Auto) Seg Neutrophils % Seg Neuts % (Manual) Lymphocytes % (Manual) Seg Neutrophils # Seg Neutrophils # Man Lymphocytes # (Manual) Monocytes % (Manual) Eosinophils % (Manual) Monocytes # (Manual) Eosinophils # (Manual) D-Dimer Heparin Anti-Xa Level ABG pH POC ABG pCO2 POC ABG pO2 ABG pO2 ABG HCO3 ABG O2 Saturation ABG Base Excess ABG Hemoglobin ABG Oxyhemoglobin VBG pH ABG Sodium ABG Potassium ABG Glucose Oxyhemoglobin Sodium Potassium Chloride Carbon Dioxide BUN Creatinine Glucose POC Glucose 112 H 140 H Lactic Acid Calcium Ferritin AST Alkaline Phosphatase Magnesium Lactate Dehydrogenase Total Creatine Kinase CK-MB (CK-2) C-Reactive Protein Total Protein Albumin Troponin T HDL Cholesterol Arterial Blood Glucose Urine WBC (Auto) Urine Creatinine Urine Total Protein Phenytoin Coronavirus (PCR) Positive A Crossmatch 06/30/20 06/30/20 06/30/20 04:10 04:10 06:09 WBC RBC 2.44 L Hgb 7.1 L Hct 21.5 L MCHC RDW 16.6 H Lymph % (Auto) 11.0 L [place] % (Auto) 10.8 H Eos % (Auto) Lymph # 0.9 L [place] # 0.9 H Lymph # (Auto) [place] # (Auto) Eos # (Auto) Seg Neutrophils % 73.7 H Seg Neuts % (Manual) Lymphocytes % (Manual) Seg Neutrophils # Seg Neutrophils # Man Lymphocytes # (Manual) Monocytes % (Manual) Eosinophils % (Manual) Monocytes # (Manual) Eosinophils # (Manual) D-Dimer Heparin Anti-Xa Level ABG pH POC ABG pCO2 POC ABG pO2 ABG pO2 ABG HCO3 ABG O2 Saturation ABG Base Excess ABG Hemoglobin ABG Oxyhemoglobin VBG pH ABG Sodium ABG Potassium ABG Glucose Oxyhemoglobin Sodium Potassium Chloride 109.1 H Carbon Dioxide BUN 74 H Creatinine 1.3 H Glucose 191 H POC Glucose 187 H Lactic Acid Calcium 7.8 L Ferritin AST Alkaline Phosphatase Magnesium Lactate Dehydrogenase Total Creatine Kinase CK-MB (CK-2) C-Reactive Protein Total Protein Albumin Troponin T HDL Cholesterol Arterial Blood Glucose Urine WBC (Auto) Urine Creatinine Urine Total Protein Phenytoin Coronavirus (PCR) Crossmatch 06/30/20 06/30/20 06/30/20 12:04 17:43 23:41 WBC RBC Hgb Hct MCHC RDW Lymph % (Auto) [place] % (Auto) Eos % (Auto) Lymph # [place] # Lymph # (Auto) [place] # (Auto) Eos # (Auto) Seg Neutrophils % Seg Neuts % (Manual) Lymphocytes % (Manual) Seg Neutrophils # Seg Neutrophils # Man Lymphocytes # (Manual) Monocytes % (Manual) Eosinophils % (Manual) Monocytes # (Manual) Eosinophils # (Manual) D-Dimer Heparin Anti-Xa Level ABG pH POC ABG pCO2 POC ABG pO2 ABG pO2 ABG HCO3 ABG O2 Saturation ABG Base Excess ABG Hemoglobin ABG Oxyhemoglobin VBG pH ABG Sodium ABG Potassium ABG Glucose Oxyhemoglobin Sodium Potassium Chloride Carbon Dioxide BUN Creatinine Glucose POC Glucose 112 H 177 H 143 H Lactic Acid Calcium Ferritin AST Alkaline Phosphatase Magnesium Lactate Dehydrogenase Total Creatine Kinase CK-MB (CK-2) C-Reactive Protein Total Protein Albumin Troponin T HDL Cholesterol Arterial Blood Glucose Urine WBC (Auto) Urine Creatinine Urine Total Protein Phenytoin Coronavirus (PCR) Crossmatch 07/01/20 07/01/20 07/01/20 05:02 05:52 06:01 WBC 12.6 H RBC 2.95 L Hgb 8.2 L Hct 26.0 L MCHC RDW 16.9 H Lymph % (Auto) [place] % (Auto) Eos % (Auto) Lymph # [place] # Lymph # (Auto) [place] # (Auto) Eos # (Auto) Seg Neutrophils % Seg Neuts % (Manual) Lymphocytes % (Manual) Seg Neutrophils # Seg Neutrophils # Man 8.6 H Lymphocytes # (Manual) Monocytes % (Manual) Eosinophils % (Manual) 5.0 H Monocytes # (Manual) Eosinophils # (Manual) 0.6 H D-Dimer Heparin Anti-Xa Level ABG pH POC ABG pCO2 POC ABG pO2 ABG pO2 ABG HCO3 ABG O2 Saturation ABG Base Excess ABG Hemoglobin 8.2 L ABG Oxyhemoglobin VBG pH ABG Sodium ABG Potassium ABG Glucose Oxyhemoglobin Sodium Potassium Chloride Carbon Dioxide BUN Creatinine Glucose POC Glucose 129 H Lactic Acid Calcium Ferritin AST Alkaline Phosphatase Magnesium Lactate Dehydrogenase Total Creatine Kinase CK-MB (CK-2) C-Reactive Protein Total Protein Albumin Troponin T HDL Cholesterol Arterial Blood Glucose Urine WBC (Auto) Urine Creatinine Urine Total Protein Phenytoin Coronavirus (PCR) Crossmatch 07/01/20 07/01/20 07/01/20 06:01 06:01 06:08 WBC RBC Hgb Hct MCHC RDW Lymph % (Auto) [place] % (Auto) Eos % (Auto) Lymph # [place] # Lymph # (Auto) [place] # (Auto) Eos # (Auto) Seg Neutrophils % Seg Neuts % (Manual) Lymphocytes % (Manual) Seg Neutrophils # Seg Neutrophils # Man Lymphocytes # (Manual) Monocytes % (Manual) Eosinophils % (Manual) Monocytes # (Manual) Eosinophils # (Manual) D-Dimer Heparin Anti-Xa Level ABG pH POC ABG pCO2 POC ABG pO2 ABG pO2 ABG HCO3 ABG O2 Saturation ABG Base Excess ABG Hemoglobin ABG Oxyhemoglobin VBG pH ABG Sodium ABG Potassium ABG Glucose Oxyhemoglobin Sodium 147 H Potassium Chloride 108.0 H Carbon Dioxide BUN 71 H Creatinine 1.3 H Glucose 193 H POC Glucose 192 H Lactic Acid Calcium 8.1 L Ferritin AST Alkaline Phosphatase Magnesium Lactate Dehydrogenase Total Creatine Kinase 300 H CK-MB (CK-2) C-Reactive Protein Total Protein Albumin Troponin T 0.067 H HDL Cholesterol 61 H Arterial Blood Glucose Urine WBC (Auto) Urine Creatinine Urine Total Protein Phenytoin Coronavirus (PCR) Crossmatch 07/01/20 07/01/20 07/02/20 12:23 17:40 00:18 WBC RBC Hgb Hct MCHC RDW Lymph % (Auto) [place] % (Auto) Eos % (Auto) Lymph # [place] # Lymph # (Auto) [place] # (Auto) Eos # (Auto) Seg Neutrophils % Seg Neuts % (Manual) Lymphocytes % (Manual) Seg Neutrophils # Seg Neutrophils # Man Lymphocytes # (Manual) Monocytes % (Manual) Eosinophils % (Manual) Monocytes # (Manual) Eosinophils # (Manual) D-Dimer Heparin Anti-Xa Level ABG pH POC ABG pCO2 POC ABG pO2 ABG pO2 ABG HCO3 ABG O2 Saturation ABG Base Excess ABG Hemoglobin ABG Oxyhemoglobin VBG pH ABG Sodium ABG Potassium ABG Glucose Oxyhemoglobin Sodium Potassium Chloride Carbon Dioxide BUN Creatinine Glucose POC Glucose 111 H 135 H 145 H Lactic Acid Calcium Ferritin AST Alkaline Phosphatase Magnesium Lactate Dehydrogenase Total Creatine Kinase CK-MB (CK-2) C-Reactive Protein Total Protein Albumin Troponin T HDL Cholesterol Arterial Blood Glucose Urine WBC (Auto) Urine Creatinine Urine Total Protein Phenytoin Coronavirus (PCR) Crossmatch 07/02/20 07/02/20 07/02/20 04:11 04:23 05:54 WBC RBC Hgb Hct MCHC RDW Lymph % (Auto) [place] % (Auto) Eos % (Auto) Lymph # [place] # Lymph # (Auto) [place] # (Auto) Eos # (Auto) Seg Neutrophils % Seg Neuts % (Manual) Lymphocytes % (Manual) Seg Neutrophils # Seg Neutrophils # Man Lymphocytes # (Manual) Monocytes % (Manual) Eosinophils % (Manual) Monocytes # (Manual) Eosinophils # (Manual) D-Dimer Heparin Anti-Xa Level ABG pH POC ABG pCO2 POC ABG pO2 ABG pO2 ABG HCO3 ABG O2 Saturation ABG Base Excess ABG Hemoglobin 5.4 L ABG Oxyhemoglobin VBG pH ABG Sodium ABG Potassium ABG Glucose Oxyhemoglobin Sodium Potassium Chloride 108.6 H Carbon Dioxide BUN 72 H Creatinine Glucose 112 H POC Glucose 137 H Lactic Acid Calcium 7.8 L Ferritin AST Alkaline Phosphatase Magnesium Lactate Dehydrogenase Total Creatine Kinase CK-MB (CK-2) C-Reactive Protein Total Protein Albumin Troponin T HDL Cholesterol Arterial Blood Glucose Urine WBC (Auto) Urine Creatinine Urine Total Protein Phenytoin Coronavirus (PCR) Crossmatch 07/02/20 07/02/20 07/02/20 11:38 18:04 23:59 WBC RBC Hgb Hct MCHC RDW Lymph % (Auto) Storey % (Auto) Eos % (Auto) Lymph # Storey # Lymph # (Auto) Storey # (Auto) Eos # (Auto) Seg Neutrophils % Seg Neuts % (Manual) Lymphocytes % (Manual) Seg Neutrophils # Seg Neutrophils # Man Lymphocytes # (Manual) Monocytes % (Manual) Eosinophils % (Manual) Monocytes # (Manual) Eosinophils # (Manual) D-Dimer Heparin Anti-Xa Level ABG pH POC ABG pCO2 POC ABG pO2 ABG pO2 ABG HCO3 ABG O2 Saturation ABG Base Excess ABG Hemoglobin ABG Oxyhemoglobin VBG pH ABG Sodium ABG Potassium ABG Glucose Oxyhemoglobin Sodium Potassium Chloride Carbon Dioxide BUN Creatinine Glucose POC Glucose 128 H 135 H 156 H Lactic Acid Calcium Ferritin AST Alkaline Phosphatase Magnesium Lactate Dehydrogenase Total Creatine Kinase CK-MB (CK-2) C-Reactive Protein Total Protein Albumin Troponin T HDL Cholesterol Arterial Blood Glucose Urine WBC (Auto) Urine Creatinine Urine Total Protein Phenytoin Coronavirus (PCR) Crossmatch 07/03/20 07/03/20 07/03/20 03:49 06:00 11:31 WBC RBC Hgb Hct MCHC RDW Lymph % (Auto) [place] % (Auto) Eos % (Auto) Lymph # [place] # Lymph # (Auto) [place] # (Auto) Eos # (Auto) Seg Neutrophils % Seg Neuts % (Manual) Lymphocytes % (Manual) Seg Neutrophils # Seg Neutrophils # Man Lymphocytes # (Manual) Monocytes % (Manual) Eosinophils % (Manual) Monocytes # (Manual) Eosinophils # (Manual) D-Dimer Heparin Anti-Xa Level ABG pH POC ABG pCO2 POC ABG pO2 ABG pO2 121.0 H ABG HCO3 ABG O2 Saturation ABG Base Excess ABG Hemoglobin 8.5 L ABG Oxyhemoglobin VBG pH ABG Sodium ABG Potassium ABG Glucose Oxyhemoglobin Sodium Potassium Chloride Carbon Dioxide BUN Creatinine Glucose POC Glucose 135 H 141 H Lactic Acid Calcium Ferritin AST Alkaline Phosphatase Magnesium Lactate Dehydrogenase Total Creatine Kinase CK-MB (CK-2) C-Reactive Protein Total Protein Albumin Troponin T HDL Cholesterol Arterial Blood Glucose Urine WBC (Auto) Urine Creatinine Urine Total Protein Phenytoin Coronavirus (PCR) Crossmatch 07/03/20 07/03/20 07/03/20 16:00 16:07 17:40 WBC RBC Hgb Hct MCHC RDW Lymph % (Auto) [place] % (Auto) Eos % (Auto) Lymph # [place] # Lymph # (Auto) [place] # (Auto) Eos # (Auto) Seg Neutrophils % Seg Neuts % (Manual) Lymphocytes % (Manual) Seg Neutrophils # Seg Neutrophils # Man Lymphocytes # (Manual) Monocytes % (Manual) Eosinophils % (Manual) Monocytes # (Manual) Eosinophils # (Manual) D-Dimer Heparin Anti-Xa Level ABG pH 7.271 L POC ABG pCO2 POC ABG pO2 ABG pO2 126.9 H ABG HCO3 ABG O2 Saturation ABG Base Excess ABG Hemoglobin 8.2 L 8.1 L ABG Oxyhemoglobin VBG pH ABG Sodium 130.3 L ABG Potassium 4.9 H ABG Glucose 163 H Oxyhemoglobin Sodium Potassium Chloride Carbon Dioxide BUN Creatinine Glucose POC Glucose 120 H Lactic Acid Calcium Ferritin AST Alkaline Phosphatase Magnesium Lactate Dehydrogenase Total Creatine Kinase CK-MB (CK-2) C-Reactive Protein Total Protein Albumin Troponin T HDL Cholesterol Arterial Blood Glucose 163 H Urine WBC (Auto) Urine Creatinine Urine Total Protein Phenytoin Coronavirus (PCR) Crossmatch 07/04/20 07/04/20 07/04/20 05:49 11:54 18:00 WBC RBC Hgb Hct MCHC RDW Lymph % (Auto) [place] % (Auto) Eos % (Auto) Lymph # [place] # Lymph # (Auto) [place] # (Auto) Eos # (Auto) Seg Neutrophils % Seg Neuts % (Manual) Lymphocytes % (Manual) Seg Neutrophils # Seg Neutrophils # Man Lymphocytes # (Manual) Monocytes % (Manual) Eosinophils % (Manual) Monocytes # (Manual) Eosinophils # (Manual) D-Dimer Heparin Anti-Xa Level ABG pH POC ABG pCO2 POC ABG pO2 ABG pO2 ABG HCO3 ABG O2 Saturation ABG Base Excess ABG Hemoglobin ABG Oxyhemoglobin VBG pH ABG Sodium ABG Potassium ABG Glucose Oxyhemoglobin Sodium Potassium Chloride Carbon Dioxide BUN Creatinine Glucose POC Glucose 128 H 168 H 133 H Lactic Acid Calcium Ferritin AST Alkaline Phosphatase Magnesium Lactate Dehydrogenase Total Creatine Kinase CK-MB (CK-2) C-Reactive Protein Total Protein Albumin Troponin T HDL Cholesterol Arterial Blood Glucose Urine WBC (Auto) Urine Creatinine Urine Total Protein Phenytoin Coronavirus (PCR) Crossmatch 07/05/20 07/05/20 07/05/20 00:07 01:12 02:30 WBC RBC 2.35 L Hgb 6.9 L Hct 21.1 L MCHC RDW 16.8 H Lymph % (Auto) [place] % (Auto) Eos % (Auto) Lymph # [place] # Lymph # (Auto) [place] # (Auto) Eos # (Auto) Seg Neutrophils % Seg Neuts % (Manual) 74.0 H Lymphocytes % (Manual) 12.0 L Seg Neutrophils # Seg Neutrophils # Man 8.0 H Lymphocytes # (Manual) Monocytes % (Manual) 9.0 H Eosinophils % (Manual) Monocytes # (Manual) 1.0 H Eosinophils # (Manual) D-Dimer Heparin Anti-Xa Level ABG pH POC ABG pCO2 POC ABG pO2 ABG pO2 ABG HCO3 ABG O2 Saturation ABG Base Excess ABG Hemoglobin ABG Oxyhemoglobin VBG pH ABG Sodium ABG Potassium ABG Glucose Oxyhemoglobin Sodium Potassium Chloride Carbon Dioxide BUN Creatinine Glucose POC Glucose 121 H Lactic Acid Calcium Ferritin AST Alkaline Phosphatase Magnesium Lactate Dehydrogenase Total Creatine Kinase CK-MB (CK-2) C-Reactive Protein Total Protein Albumin Troponin T HDL Cholesterol Arterial Blood Glucose Urine WBC (Auto) Urine Creatinine Urine Total Protein Phenytoin Coronavirus (PCR) Crossmatch See Detail 07/05/20 07/05/20 07/05/20 12:09 13:05 18:04 WBC RBC Hgb Hct MCHC RDW Lymph % (Auto) [place] % (Auto) Eos % (Auto) Lymph # [place] # Lymph # (Auto) [place] # (Auto) Eos # (Auto) Seg Neutrophils % Seg Neuts % (Manual) Lymphocytes % (Manual) Seg Neutrophils # Seg Neutrophils # Man Lymphocytes # (Manual) Monocytes % (Manual) Eosinophils % (Manual) Monocytes # (Manual) Eosinophils # (Manual) D-Dimer Heparin Anti-Xa Level ABG pH 7.32 L POC ABG pCO2 POC ABG pO2 ABG pO2 78.3 L ABG HCO3 ABG O2 Saturation ABG Base Excess -2.6 L ABG Hemoglobin 7.3 L ABG Oxyhemoglobin VBG pH ABG Sodium ABG Potassium ABG Glucose Oxyhemoglobin Sodium Potassium Chloride Carbon Dioxide BUN Creatinine Glucose POC Glucose 132 H 160 H Lactic Acid Calcium Ferritin AST Alkaline Phosphatase Magnesium Lactate Dehydrogenase Total Creatine Kinase CK-MB (CK-2) C-Reactive Protein Total Protein Albumin Troponin T HDL Cholesterol Arterial Blood Glucose Urine WBC (Auto) Urine Creatinine Urine Total Protein Phenytoin Coronavirus (PCR) Crossmatch 07/05/20 07/05/20 07/05/20 23:13 23:13 23:43 WBC RBC 2.57 L Hgb 7.7 L Hct 23.0 L MCHC RDW 16.9 H Lymph % (Auto) [place] % (Auto) Eos % (Auto) Lymph # [place] # Lymph # (Auto) [place] # (Auto) Eos # (Auto) Seg Neutrophils % Seg Neuts % (Manual) Lymphocytes % (Manual) Seg Neutrophils # Seg Neutrophils # Man Lymphocytes # (Manual) Monocytes % (Manual) Eosinophils % (Manual) Monocytes # (Manual) Eosinophils # (Manual) D-Dimer Heparin Anti-Xa Level ABG pH POC ABG pCO2 POC ABG pO2 ABG pO2 ABG HCO3 ABG O2 Saturation ABG Base Excess ABG Hemoglobin ABG Oxyhemoglobin VBG pH ABG Sodium ABG Potassium ABG Glucose Oxyhemoglobin Sodium Potassium Chloride Carbon Dioxide 20 L BUN 80 H Creatinine 2.4 H D Glucose 124 H POC Glucose 121 H Lactic Acid Calcium 7.6 L Ferritin AST Alkaline Phosphatase Magnesium Lactate Dehydrogenase Total Creatine Kinase CK-MB (CK-2) C-Reactive Protein Total Protein Albumin Troponin T HDL Cholesterol Arterial Blood Glucose Urine WBC (Auto) Urine Creatinine Urine Total Protein Phenytoin Coronavirus (PCR) Crossmatch 07/06/20 07/06/20 07/06/20 13:20 14:48 17:28 WBC RBC Hgb Hct MCHC RDW Lymph % (Auto) [place] % (Auto) Eos % (Auto) Lymph # [place] # Lymph # (Auto) [place] # (Auto) Eos # (Auto) Seg Neutrophils % Seg Neuts % (Manual) Lymphocytes % (Manual) Seg Neutrophils # Seg Neutrophils # Man Lymphocytes # (Manual) Monocytes % (Manual) Eosinophils % (Manual) Monocytes # (Manual) Eosinophils # (Manual) D-Dimer Heparin Anti-Xa Level ABG pH POC ABG pCO2 POC ABG pO2 ABG pO2 ABG HCO3 ABG O2 Saturation ABG Base Excess ABG Hemoglobin ABG Oxyhemoglobin VBG pH ABG Sodium ABG Potassium ABG Glucose Oxyhemoglobin Sodium 136 L Potassium 5.5 H Chloride Carbon Dioxide 19 L BUN 82 H Creatinine 2.5 H Glucose 113 H POC Glucose 133 H Lactic Acid Calcium 7.7 L Ferritin AST Alkaline Phosphatase Magnesium Lactate Dehydrogenase Total Creatine Kinase CK-MB (CK-2) C-Reactive Protein Total Protein Albumin Troponin T HDL Cholesterol Arterial Blood Glucose Urine WBC (Auto) Urine Creatinine 33.3 H Urine Total Protein Phenytoin Coronavirus (PCR) Crossmatch 07/07/20 07/07/20 07/07/20 00:12 04:15 04:15 WBC RBC 2.28 L Hgb 6.8 L Hct 20.7 L MCHC RDW 16.8 H Lymph % (Auto) [place] % (Auto) Eos % (Auto) Lymph # [place] # Lymph # (Auto) [place] # (Auto) Eos # (Auto) Seg Neutrophils % Seg Neuts % (Manual) Lymphocytes % (Manual) 13.0 L Seg Neutrophils # Seg Neutrophils # Man Lymphocytes # (Manual) 1.0 L Monocytes % (Manual) 11.0 H Eosinophils % (Manual) Monocytes # (Manual) 0.9 H Eosinophils # (Manual) D-Dimer Heparin Anti-Xa Level ABG pH POC ABG pCO2 POC ABG pO2 ABG pO2 ABG HCO3 ABG O2 Saturation ABG Base Excess ABG Hemoglobin ABG Oxyhemoglobin VBG pH ABG Sodium ABG Potassium ABG Glucose Oxyhemoglobin Sodium Potassium Chloride Carbon Dioxide BUN Creatinine Glucose POC Glucose 154 H Lactic Acid Calcium Ferritin AST Alkaline Phosphatase Magnesium 2.50 H Lactate Dehydrogenase Total Creatine Kinase CK-MB (CK-2) C-Reactive Protein Total Protein Albumin Troponin T HDL Cholesterol Arterial Blood Glucose Urine WBC (Auto) Urine Creatinine Urine Total Protein Phenytoin Coronavirus (PCR) Crossmatch 07/07/20 07/07/20 07/07/20 05:31 12:31 13:22 WBC RBC Hgb Hct MCHC RDW Lymph % (Auto) [place] % (Auto) Eos % (Auto) Lymph # [place] # Lymph # (Auto) [place] # (Auto) Eos # (Auto) Seg Neutrophils % Seg Neuts % (Manual) Lymphocytes % (Manual) Seg Neutrophils # Seg Neutrophils # Man Lymphocytes # (Manual) Monocytes % (Manual) Eosinophils % (Manual) Monocytes # (Manual) Eosinophils # (Manual) D-Dimer Heparin Anti-Xa Level ABG pH POC ABG pCO2 POC ABG pO2 ABG pO2 ABG HCO3 ABG O2 Saturation ABG Base Excess ABG Hemoglobin ABG Oxyhemoglobin VBG pH ABG Sodium ABG Potassium ABG Glucose Oxyhemoglobin Sodium Potassium 5.6 H Chloride Carbon Dioxide BUN 86 H Creatinine 2.9 H Glucose 127 H POC Glucose 135 H 131 H Lactic Acid Calcium 8.1 L Ferritin AST Alkaline Phosphatase Magnesium Lactate Dehydrogenase Total Creatine Kinase CK-MB (CK-2) C-Reactive Protein Total Protein Albumin Troponin T HDL Cholesterol Arterial Blood Glucose Urine WBC (Auto) Urine Creatinine Urine Total Protein Phenytoin Coronavirus (PCR) Crossmatch 07/07/20 07/07/20 07/08/20 17:55 23:33 04:14 WBC RBC 3.28 L Hgb 9.7 L Hct 28.9 L D MCHC RDW 16.4 H Lymph % (Auto) 10.3 L [place] % (Auto) 10.0 H Eos % (Auto) Lymph # [place] # Lymph # (Auto) 1.1 L [place] # (Auto) 1.1 H Eos # (Auto) Seg Neutrophils % 77.2 H Seg Neuts % (Manual) Lymphocytes % (Manual) Seg Neutrophils # 8.2 H Seg Neutrophils # Man Lymphocytes # (Manual) Monocytes % (Manual) Eosinophils % (Manual) Monocytes # (Manual) Eosinophils # (Manual) D-Dimer Heparin Anti-Xa Level ABG pH POC ABG pCO2 POC ABG pO2 ABG pO2 ABG HCO3 ABG O2 Saturation ABG Base Excess ABG Hemoglobin ABG Oxyhemoglobin VBG pH ABG Sodium ABG Potassium ABG Glucose Oxyhemoglobin Sodium Potassium Chloride Carbon Dioxide BUN Creatinine Glucose POC Glucose 136 H 159 H Lactic Acid Calcium Ferritin AST Alkaline Phosphatase Magnesium Lactate Dehydrogenase Total Creatine Kinase CK-MB (CK-2) C-Reactive Protein Total Protein Albumin Troponin T HDL Cholesterol Arterial Blood Glucose Urine WBC (Auto) Urine Creatinine Urine Total Protein Phenytoin Coronavirus (PCR) Crossmatch 07/08/20 07/08/20 07/08/20 04:14 12:10 18:10 WBC RBC Hgb Hct MCHC RDW Lymph % (Auto) [place] % (Auto) Eos % (Auto) Lymph # [place] # Lymph # (Auto) [place] # (Auto) Eos # (Auto) Seg Neutrophils % Seg Neuts % (Manual) Lymphocytes % (Manual) Seg Neutrophils # Seg Neutrophils # Man Lymphocytes # (Manual) Monocytes % (Manual) Eosinophils % (Manual) Monocytes # (Manual) Eosinophils # (Manual) D-Dimer Heparin Anti-Xa Level ABG pH POC ABG pCO2 POC ABG pO2 ABG pO2 ABG HCO3 ABG O2 Saturation ABG Base Excess ABG Hemoglobin ABG Oxyhemoglobin VBG pH ABG Sodium ABG Potassium ABG Glucose Oxyhemoglobin Sodium 136 L Potassium Chloride Carbon Dioxide BUN 84 H Creatinine 2.8 H Glucose 109 H POC Glucose 108 H 125 H Lactic Acid Calcium 8.1 L Ferritin AST Alkaline Phosphatase Magnesium 2.50 H Lactate Dehydrogenase Total Creatine Kinase CK-MB (CK-2) C-Reactive Protein Total Protein Albumin Troponin T HDL Cholesterol Arterial Blood Glucose Urine WBC (Auto) Urine Creatinine Urine Total Protein Phenytoin Coronavirus (PCR) Crossmatch 07/08/20 07/09/20 07/09/20 23:50 05:39 11:57 WBC RBC Hgb Hct MCHC RDW Lymph % (Auto) [place] % (Auto) Eos % (Auto) Lymph # [place] # Lymph # (Auto) [place] # (Auto) Eos # (Auto) Seg Neutrophils % Seg Neuts % (Manual) Lymphocytes % (Manual) Seg Neutrophils # Seg Neutrophils # Man Lymphocytes # (Manual) Monocytes % (Manual) Eosinophils % (Manual) Monocytes # (Manual) Eosinophils # (Manual) D-Dimer Heparin Anti-Xa Level ABG pH POC ABG pCO2 POC ABG pO2 ABG pO2 ABG HCO3 ABG O2 Saturation ABG Base Excess ABG Hemoglobin ABG Oxyhemoglobin VBG pH ABG Sodium ABG Potassium ABG Glucose Oxyhemoglobin Sodium Potassium Chloride Carbon Dioxide BUN Creatinine Glucose POC Glucose 141 H 121 H 123 H Lactic Acid Calcium Ferritin AST Alkaline Phosphatase Magnesium Lactate Dehydrogenase Total Creatine Kinase CK-MB (CK-2) C-Reactive Protein Total Protein Albumin Troponin T HDL Cholesterol Arterial Blood Glucose Urine WBC (Auto) Urine Creatinine Urine Total Protein Phenytoin Coronavirus (PCR) Crossmatch 07/09/20 07/10/20 07/10/20 17:56 00:29 05:50 WBC RBC Hgb Hct MCHC RDW Lymph % (Auto) [place] % (Auto) Eos % (Auto) Lymph # [place] # Lymph # (Auto) [place] # (Auto) Eos # (Auto) Seg Neutrophils % Seg Neuts % (Manual) Lymphocytes % (Manual) Seg Neutrophils # Seg Neutrophils # Man Lymphocytes # (Manual) Monocytes % (Manual) Eosinophils % (Manual) Monocytes # (Manual) Eosinophils # (Manual) D-Dimer Heparin Anti-Xa Level ABG pH POC ABG pCO2 POC ABG pO2 ABG pO2 ABG HCO3 ABG O2 Saturation ABG Base Excess ABG Hemoglobin ABG Oxyhemoglobin VBG pH ABG Sodium ABG Potassium ABG Glucose Oxyhemoglobin Sodium Potassium Chloride Carbon Dioxide BUN Creatinine Glucose POC Glucose 119 H 122 H 124 H Lactic Acid Calcium Ferritin AST Alkaline Phosphatase Magnesium Lactate Dehydrogenase Total Creatine Kinase CK-MB (CK-2) C-Reactive Protein Total Protein Albumin Troponin T HDL Cholesterol Arterial Blood Glucose Urine WBC (Auto) Urine Creatinine Urine Total Protein Phenytoin Coronavirus (PCR) Crossmatch 07/10/20 07/10/20 07/10/20 10:41 10:41 12:25 WBC RBC 3.11 L Hgb 9.2 L Hct 27.6 L MCHC RDW 16.6 H Lymph % (Auto) [place] % (Auto) Eos % (Auto) Lymph # [place] # Lymph # (Auto) [place] # (Auto) Eos # (Auto) Seg Neutrophils % Seg Neuts % (Manual) 78.0 H Lymphocytes % (Manual) 11.0 L Seg Neutrophils # Seg Neutrophils # Man Lymphocytes # (Manual) 1.0 L Monocytes % (Manual) Eosinophils % (Manual) Monocytes # (Manual) Eosinophils # (Manual) D-Dimer Heparin Anti-Xa Level ABG pH POC ABG pCO2 POC ABG pO2 ABG pO2 ABG HCO3 ABG O2 Saturation ABG Base Excess ABG Hemoglobin ABG Oxyhemoglobin VBG pH ABG Sodium ABG Potassium ABG Glucose Oxyhemoglobin Sodium Potassium Chloride Carbon Dioxide BUN 85 H Creatinine 2.5 H Glucose 133 H POC Glucose 131 H Lactic Acid Calcium Ferritin AST Alkaline Phosphatase 131 H Magnesium Lactate Dehydrogenase Total Creatine Kinase CK-MB (CK-2) C-Reactive Protein Total Protein 5.2 L Albumin 1.6 L Troponin T HDL Cholesterol Arterial Blood Glucose Urine WBC (Auto) Urine Creatinine Urine Total Protein Phenytoin Coronavirus (PCR) Crossmatch 07/10/20 07/11/20 07/11/20 18:10 00:28 05:57 WBC RBC Hgb Hct MCHC RDW Lymph % (Auto) [place] % (Auto) Eos % (Auto) Lymph # [place] # Lymph # (Auto) [place] # (Auto) Eos # (Auto) Seg Neutrophils % Seg Neuts % (Manual) Lymphocytes % (Manual) Seg Neutrophils # Seg Neutrophils # Man Lymphocytes # (Manual) Monocytes % (Manual) Eosinophils % (Manual) Monocytes # (Manual) Eosinophils # (Manual) D-Dimer Heparin Anti-Xa Level ABG pH POC ABG pCO2 POC ABG pO2 ABG pO2 ABG HCO3 ABG O2 Saturation ABG Base Excess ABG Hemoglobin ABG Oxyhemoglobin VBG pH ABG Sodium ABG Potassium ABG Glucose Oxyhemoglobin Sodium Potassium Chloride Carbon Dioxide BUN Creatinine Glucose POC Glucose 134 H 140 H 148 H Lactic Acid Calcium Ferritin AST Alkaline Phosphatase Magnesium Lactate Dehydrogenase Total Creatine Kinase CK-MB (CK-2) C-Reactive Protein Total Protein Albumin Troponin T HDL Cholesterol Arterial Blood Glucose Urine WBC (Auto) Urine Creatinine Urine Total Protein Phenytoin Coronavirus (PCR) Crossmatch 07/11/20 07/11/20 07/11/20 12:14 17:28 23:49 WBC RBC Hgb Hct MCHC RDW Lymph % (Auto) [place] % (Auto) Eos % (Auto) Lymph # [place] # Lymph # (Auto) [place] # (Auto) Eos # (Auto) Seg Neutrophils % Seg Neuts % (Manual) Lymphocytes % (Manual) Seg Neutrophils # Seg Neutrophils # Man Lymphocytes # (Manual) Monocytes % (Manual) Eosinophils % (Manual) Monocytes # (Manual) Eosinophils # (Manual) D-Dimer Heparin Anti-Xa Level ABG pH POC ABG pCO2 POC ABG pO2 ABG pO2 ABG HCO3 ABG O2 Saturation ABG Base Excess ABG Hemoglobin ABG Oxyhemoglobin VBG pH ABG Sodium ABG Potassium ABG Glucose Oxyhemoglobin Sodium Potassium Chloride Carbon Dioxide BUN Creatinine Glucose POC Glucose 147 H 175 H 114 H Lactic Acid Calcium Ferritin AST Alkaline Phosphatase Magnesium Lactate Dehydrogenase Total Creatine Kinase CK-MB (CK-2) C-Reactive Protein Total Protein Albumin Troponin T HDL Cholesterol Arterial Blood Glucose Urine WBC (Auto) Urine Creatinine Urine Total Protein Phenytoin Coronavirus (PCR) Crossmatch 07/12/20 07/12/20 07/12/20 05:14 05:14 05:44 WBC RBC 2.78 L Hgb 8.5 L Hct 25.3 L MCHC RDW 16.7 H Lymph % (Auto) [place] % (Auto) Eos % (Auto) Lymph # [place] # Lymph # (Auto) [place] # (Auto) Eos # (Auto) Seg Neutrophils % Seg Neuts % (Manual) 81.0 H Lymphocytes % (Manual) 6.0 L Seg Neutrophils # Seg Neutrophils # Man Lymphocytes # (Manual) 0.6 L Monocytes % (Manual) 8.0 H Eosinophils % (Manual) Monocytes # (Manual) Eosinophils # (Manual) D-Dimer Heparin Anti-Xa Level ABG pH POC ABG pCO2 POC ABG pO2 ABG pO2 ABG HCO3 ABG O2 Saturation ABG Base Excess ABG Hemoglobin ABG Oxyhemoglobin VBG pH ABG Sodium ABG Potassium ABG Glucose Oxyhemoglobin Sodium Potassium Chloride Carbon Dioxide BUN 79 H Creatinine 2.2 H Glucose 131 H POC Glucose 116 H Lactic Acid Calcium Ferritin AST Alkaline Phosphatase Magnesium Lactate Dehydrogenase Total Creatine Kinase CK-MB (CK-2) C-Reactive Protein Total Protein Albumin Troponin T HDL Cholesterol Arterial Blood Glucose Urine WBC (Auto) Urine Creatinine Urine Total Protein Phenytoin Coronavirus (PCR) Crossmatch 07/12/20 07/12/20 07/13/20 11:32 17:53 00:18 WBC RBC Hgb Hct MCHC RDW Lymph % (Auto) [place] % (Auto) Eos % (Auto) Lymph # [place] # Lymph # (Auto) [place] # (Auto) Eos # (Auto) Seg Neutrophils % Seg Neuts % (Manual) Lymphocytes % (Manual) Seg Neutrophils # Seg Neutrophils # Man Lymphocytes # (Manual) Monocytes % (Manual) Eosinophils % (Manual) Monocytes # (Manual) Eosinophils # (Manual) D-Dimer Heparin Anti-Xa Level ABG pH POC ABG pCO2 POC ABG pO2 ABG pO2 ABG HCO3 ABG O2 Saturation ABG Base Excess ABG Hemoglobin ABG Oxyhemoglobin VBG pH ABG Sodium ABG Potassium ABG Glucose Oxyhemoglobin Sodium Potassium Chloride Carbon Dioxide BUN Creatinine Glucose POC Glucose 132 H 155 H 162 H Lactic Acid Calcium Ferritin AST Alkaline Phosphatase Magnesium Lactate Dehydrogenase Total Creatine Kinase CK-MB (CK-2) C-Reactive Protein Total Protein Albumin Troponin T HDL Cholesterol Arterial Blood Glucose Urine WBC (Auto) Urine Creatinine Urine Total Protein Phenytoin Coronavirus (PCR) Crossmatch 07/13/20 07/13/20 07/13/20 04:53 04:53 06:14 WBC RBC 2.86 L Hgb 8.4 L Hct 25.7 L MCHC RDW 16.8 H Lymph % (Auto) [place] % (Auto) Eos % (Auto) Lymph # [place] # Lymph # (Auto) [place] # (Auto) Eos # (Auto) Seg Neutrophils % Seg Neuts % (Manual) 84.0 H Lymphocytes % (Manual) 7.0 L Seg Neutrophils # Seg Neutrophils # Man Lymphocytes # (Manual) 0.6 L Monocytes % (Manual) Eosinophils % (Manual) Monocytes # (Manual) Eosinophils # (Manual) D-Dimer Heparin Anti-Xa Level ABG pH POC ABG pCO2 POC ABG pO2 ABG pO2 ABG HCO3 ABG O2 Saturation ABG Base Excess ABG Hemoglobin ABG Oxyhemoglobin VBG pH ABG Sodium ABG Potassium ABG Glucose Oxyhemoglobin Sodium 136 L Potassium Chloride Carbon Dioxide BUN 78 H Creatinine 2.0 H Glucose 130 H POC Glucose 141 H Lactic Acid Calcium Ferritin AST Alkaline Phosphatase Magnesium Lactate Dehydrogenase Total Creatine Kinase CK-MB (CK-2) C-Reactive Protein Total Protein Albumin Troponin T HDL Cholesterol Arterial Blood Glucose Urine WBC (Auto) Urine Creatinine Urine Total Protein Phenytoin Coronavirus (PCR) Crossmatch 07/13/20 07/13/2007/14/20 12:50 18:27 00:22 WBC RBC Hgb Hct MCHC RDW Lymph % (Auto) [place] % (Auto) Eos % (Auto) Lymph # [place] # Lymph # (Auto) [place] # (Auto) Eos # (Auto) Seg Neutrophils % Seg Neuts % (Manual) Lymphocytes % (Manual) Seg Neutrophils # Seg Neutrophils # Man Lymphocytes # (Manual) Monocytes % (Manual) Eosinophils % (Manual) Monocytes # (Manual) Eosinophils # (Manual) D-Dimer Heparin Anti-Xa Level ABG pH POC ABG pCO2 POC ABG pO2 ABG pO2 ABG HCO3 ABG O2 Saturation ABG Base Excess ABG Hemoglobin ABG Oxyhemoglobin VBG pH ABG Sodium ABG Potassium ABG Glucose Oxyhemoglobin Sodium Potassium Chloride Carbon Dioxide BUN Creatinine Glucose POC Glucose 146 H 149 H 157 H Lactic Acid Calcium Ferritin AST Alkaline Phosphatase Magnesium Lactate Dehydrogenase Total Creatine Kinase CK-MB (CK-2) C-Reactive Protein Total Protein Albumin Troponin T HDL Cholesterol Arterial Blood Glucose Urine WBC (Auto) Urine Creatinine Urine Total Protein Phenytoin Coronavirus (PCR) Crossmatch 07/14/20 07/14/20 07/14/20 05:43 08:04 12:12 WBC RBC Hgb Hct MCHC RDW Lymph % (Auto) [place] % (Auto) Eos % (Auto) Lymph # [place] # Lymph # (Auto) [place] # (Auto) Eos # (Auto) Seg Neutrophils % Seg Neuts % (Manual) Lymphocytes % (Manual) Seg Neutrophils # Seg Neutrophils # Man Lymphocytes # (Manual) Monocytes % (Manual) Eosinophils % (Manual) Monocytes # (Manual) Eosinophils # (Manual) D-Dimer Heparin Anti-Xa Level ABG pH POC ABG pCO2 POC ABG pO2 ABG pO2 ABG HCO3 ABG O2 Saturation ABG Base Excess ABG Hemoglobin ABG Oxyhemoglobin VBG pH ABG Sodium ABG Potassium ABG Glucose Oxyhemoglobin Sodium Potassium Chloride Carbon Dioxide BUN Creatinine Glucose POC Glucose 169 H 185 H Lactic Acid Calcium Ferritin AST Alkaline Phosphatase Magnesium Lactate Dehydrogenase Total Creatine Kinase CK-MB (CK-2) C-Reactive Protein Total Protein Albumin Troponin T HDL Cholesterol Arterial Blood Glucose Urine WBC (Auto) Urine Creatinine Urine Total Protein Phenytoin Coronavirus (PCR) Positive A Crossmatch 07/14/20 07/15/20 07/15/20 17:23 00:04 06:06 WBC RBC Hgb Hct MCHC RDW Lymph % (Auto) [place] % (Auto) Eos % (Auto) Lymph # [place] # Lymph # (Auto) [place] # (Auto) Eos # (Auto) Seg Neutrophils % Seg Neuts % (Manual) Lymphocytes % (Manual) Seg Neutrophils # Seg Neutrophils # Man Lymphocytes # (Manual) Monocytes % (Manual) Eosinophils % (Manual) Monocytes # (Manual) Eosinophils # (Manual) D-Dimer Heparin Anti-Xa Level ABG pH POC ABG pCO2 POC ABG pO2 ABG pO2 ABG HCO3 ABG O2 Saturation ABG Base Excess ABG Hemoglobin ABG Oxyhemoglobin VBG pH ABG Sodium ABG Potassium ABG Glucose Oxyhemoglobin Sodium Potassium Chloride Carbon Dioxide BUN Creatinine Glucose POC Glucose 138 H 121 H 140 H Lactic Acid Calcium Ferritin AST Alkaline Phosphatase Magnesium Lactate Dehydrogenase Total Creatine Kinase CK-MB (CK-2) C-Reactive Protein Total Protein Albumin Troponin T HDL Cholesterol Arterial Blood Glucose Urine WBC (Auto) Urine Creatinine Urine Total Protein Phenytoin Coronavirus (PCR) Crossmatch 07/15/20 07/15/20 07/15/20 12:00 17:53 23:53 WBC RBC Hgb Hct MCHC RDW Lymph % (Auto) [place] % (Auto) Eos % (Auto) Lymph # [place] # Lymph # (Auto) [place] # (Auto) Eos # (Auto) Seg Neutrophils % Seg Neuts % (Manual) Lymphocytes % (Manual) Seg Neutrophils # Seg Neutrophils # Man Lymphocytes # (Manual) Monocytes % (Manual) Eosinophils % (Manual) Monocytes # (Manual) Eosinophils # (Manual) D-Dimer Heparin Anti-Xa Level ABG pH POC ABG pCO2 POC ABG pO2 ABG pO2 ABG HCO3 ABG O2 Saturation ABG Base Excess ABG Hemoglobin ABG Oxyhemoglobin VBG pH ABG Sodium ABG Potassium ABG Glucose Oxyhemoglobin Sodium Potassium Chloride Carbon Dioxide BUN Creatinine Glucose POC Glucose 137 H 161 H 156 H Lactic Acid Calcium Ferritin AST Alkaline Phosphatase Magnesium Lactate Dehydrogenase Total Creatine Kinase CK-MB (CK-2) C-Reactive Protein Total Protein Albumin Troponin T HDL Cholesterol Arterial Blood Glucose Urine WBC (Auto) Urine Creatinine Urine Total Protein Phenytoin Coronavirus (PCR) Crossmatch 07/16/20 07/16/20 07/17/20 05:26 17:44 00:07 WBC RBC Hgb Hct MCHC RDW Lymph % (Auto) [place] % (Auto) Eos % (Auto) Lymph # [place] # Lymph # (Auto) [place] # (Auto) Eos # (Auto) Seg Neutrophils % Seg Neuts % (Manual) Lymphocytes % (Manual) Seg Neutrophils # Seg Neutrophils # Man Lymphocytes # (Manual) Monocytes % (Manual) Eosinophils % (Manual) Monocytes # (Manual) Eosinophils # (Manual) D-Dimer Heparin Anti-Xa Level ABG pH POC ABG pCO2 POC ABG pO2 ABG pO2 ABG HCO3 ABG O2 Saturation ABG Base Excess ABG Hemoglobin ABG Oxyhemoglobin VBG pH ABG Sodium ABG Potassium ABG Glucose Oxyhemoglobin Sodium Potassium Chloride Carbon Dioxide BUN Creatinine Glucose POC Glucose 152 H 126 H 189 H Lactic Acid Calcium Ferritin AST Alkaline Phosphatase Magnesium Lactate Dehydrogenase Total Creatine Kinase CK-MB (CK-2) C-Reactive Protein Total Protein Albumin Troponin T HDL Cholesterol Arterial Blood Glucose Urine WBC (Auto) Urine Creatinine Urine Total Protein Phenytoin Coronavirus (PCR) Crossmatch 07/17/20 07/17/20 07/17/20 12:06 18:20 23:25 WBC RBC Hgb Hct MCHC RDW Lymph % (Auto) [place] % (Auto) Eos % (Auto) Lymph # [place] # Lymph # (Auto) [place] # (Auto) Eos # (Auto) Seg Neutrophils % Seg Neuts % (Manual) Lymphocytes % (Manual) Seg Neutrophils # Seg Neutrophils # Man Lymphocytes # (Manual) Monocytes % (Manual) Eosinophils % (Manual) Monocytes # (Manual) Eosinophils # (Manual) D-Dimer Heparin Anti-Xa Level ABG pH POC ABG pCO2 POC ABG pO2 ABG pO2 ABG HCO3 ABG O2 Saturation ABG Base Excess ABG Hemoglobin ABG Oxyhemoglobin VBG pH ABG Sodium ABG Potassium ABG Glucose Oxyhemoglobin Sodium Potassium Chloride Carbon Dioxide BUN Creatinine Glucose POC Glucose 155 H 206 H 161 H Lactic Acid Calcium Ferritin AST Alkaline Phosphatase Magnesium Lactate Dehydrogenase Total Creatine Kinase CK-MB (CK-2) C-Reactive Protein Total Protein Albumin Troponin T HDL Cholesterol Arterial Blood Glucose Urine WBC (Auto) Urine Creatinine Urine Total Protein Phenytoin Coronavirus (PCR) Crossmatch 07/18/20 07/18/20 07/18/20 04:24 05:16 11:53 WBC RBC Hgb Hct MCHC RDW Lymph % (Auto) [place] % (Auto) Eos % (Auto) Lymph # [place] # Lymph # (Auto) [place] # (Auto) Eos # (Auto) Seg Neutrophils % Seg Neuts % (Manual) Lymphocytes % (Manual) Seg Neutrophils # Seg Neutrophils # Man Lymphocytes # (Manual) Monocytes % (Manual) Eosinophils % (Manual) Monocytes # (Manual) Eosinophils # (Manual) D-Dimer Heparin Anti-Xa Level ABG pH POC ABG pCO2 POC ABG pO2 ABG pO2 ABG HCO3 ABG O2 Saturation ABG Base Excess ABG Hemoglobin 8.8 L ABG Oxyhemoglobin VBG pH ABG Sodium 131.6 L ABG Potassium 4.9 H ABG Glucose 131 H Oxyhemoglobin Sodium Potassium Chloride Carbon Dioxide BUN Creatinine Glucose POC Glucose 140 H 176 H Lactic Acid Calcium Ferritin AST Alkaline Phosphatase Magnesium Lactate Dehydrogenase Total Creatine Kinase CK-MB (CK-2) C-Reactive Protein Total Protein Albumin Troponin T HDL Cholesterol Arterial Blood Glucose 131 H Urine WBC (Auto) Urine Creatinine Urine Total Protein Phenytoin Coronavirus (PCR) Crossmatch 07/18/20 07/18/20 07/19/20 18:11 23:51 01:05 WBC RBC 2.76 L Hgb 7.9 L Hct 24.5 L MCHC RDW 17.6 H Lymph % (Auto) 11.6 L [place] % (Auto) 13.1 H Eos % (Auto) Lymph # [place] # Lymph # (Auto) 1.0 L [place] # (Auto) 1.1 H Eos # (Auto) Seg Neutrophils % 70.9 H Seg Neuts % (Manual) Lymphocytes % (Manual) Seg Neutrophils # Seg Neutrophils # Man Lymphocytes # (Manual) Monocytes % (Manual) Eosinophils % (Manual) Monocytes # (Manual) Eosinophils # (Manual) D-Dimer Heparin Anti-Xa Level ABG pH POC ABG pCO2 POC ABG pO2 ABG pO2 ABG HCO3 ABG O2 Saturation ABG Base Excess ABG Hemoglobin ABG Oxyhemoglobin VBG pH ABG Sodium ABG Potassium ABG Glucose Oxyhemoglobin Sodium Potassium Chloride Carbon Dioxide BUN Creatinine Glucose POC Glucose 143 H 159 H Lactic Acid Calcium Ferritin AST Alkaline Phosphatase Magnesium Lactate Dehydrogenase Total Creatine Kinase CK-MB (CK-2) C-Reactive Protein Total Protein Albumin Troponin T HDL Cholesterol Arterial Blood Glucose Urine WBC (Auto) Urine Creatinine Urine Total Protein Phenytoin Coronavirus (PCR) Crossmatch 07/19/20 07/19/20 07/19/20 01:05 05:54 12:46 WBC RBC Hgb Hct MCHC RDW Lymph % (Auto) [place] % (Auto) Eos % (Auto) Lymph # [place] # Lymph # (Auto) [place] # (Auto) Eos # (Auto) Seg Neutrophils % Seg Neuts % (Manual) Lymphocytes % (Manual) Seg Neutrophils # Seg Neutrophils # Man Lymphocytes # (Manual) Monocytes % (Manual) Eosinophils % (Manual) Monocytes # (Manual) Eosinophils # (Manual) D-Dimer Heparin Anti-Xa Level ABG pH POC ABG pCO2 POC ABG pO2 ABG pO2 ABG HCO3 ABG O2 Saturation ABG Base Excess ABG Hemoglobin ABG Oxyhemoglobin VBG pH ABG Sodium ABG Potassium ABG Glucose Oxyhemoglobin Sodium Potassium Chloride Carbon Dioxide BUN 86 H Creatinine 1.7 H Glucose 149 H POC Glucose 176 H 127 H Lactic Acid Calcium Ferritin AST Alkaline Phosphatase Magnesium Lactate Dehydrogenase Total Creatine Kinase CK-MB (CK-2) C-Reactive Protein Total Protein Albumin Troponin T HDL Cholesterol Arterial Blood Glucose Urine WBC (Auto) Urine Creatinine Urine Total Protein Phenytoin Coronavirus (PCR) Crossmatch 07/19/20 07/20/20 07/20/20 17:48 00:34 05:28 WBC RBC Hgb Hct MCHC RDW Lymph % (Auto) [place] % (Auto) Eos % (Auto) Lymph # [place] # Lymph # (Auto) [place] # (Auto) Eos # (Auto) Seg Neutrophils % Seg Neuts % (Manual) Lymphocytes % (Manual) Seg Neutrophils # Seg Neutrophils # Man Lymphocytes # (Manual) Monocytes % (Manual) Eosinophils % (Manual) Monocytes # (Manual) Eosinophils # (Manual) D-Dimer Heparin Anti-Xa Level ABG pH POC ABG pCO2 POC ABG pO2 ABG pO2 ABG HCO3 ABG O2 Saturation ABG Base Excess ABG Hemoglobin ABG Oxyhemoglobin VBG pH ABG Sodium ABG Potassium ABG Glucose Oxyhemoglobin Sodium Potassium Chloride Carbon Dioxide BUN Creatinine Glucose POC Glucose 123 H 147 H 110 H Lactic Acid Calcium Ferritin AST Alkaline Phosphatase Magnesium Lactate Dehydrogenase Total Creatine Kinase CK-MB (CK-2) C-Reactive Protein Total Protein Albumin Troponin T HDL Cholesterol Arterial Blood Glucose Urine WBC (Auto) Urine Creatinine Urine Total Protein Phenytoin Coronavirus (PCR) Crossmatch 07/20/20 07/20/20 07/21/20 12:10 17:00 00:11 WBC RBC Hgb Hct MCHC RDW Lymph % (Auto) [place] % (Auto) Eos % (Auto) Lymph # [place] # Lymph # (Auto) [place] # (Auto) Eos # (Auto) Seg Neutrophils % Seg Neuts % (Manual) Lymphocytes % (Manual) Seg Neutrophils # Seg Neutrophils # Man Lymphocytes # (Manual) Monocytes % (Manual) Eosinophils % (Manual) Monocytes # (Manual) Eosinophils # (Manual) D-Dimer Heparin Anti-Xa Level ABG pH POC ABG pCO2 POC ABG pO2 ABG pO2 ABG HCO3 ABG O2 Saturation ABG Base Excess ABG Hemoglobin ABG Oxyhemoglobin VBG pH ABG Sodium ABG Potassium ABG Glucose Oxyhemoglobin Sodium Potassium Chloride Carbon Dioxide BUN Creatinine Glucose POC Glucose 149 H 173 H 128 H Lactic Acid Calcium Ferritin AST Alkaline Phosphatase Magnesium Lactate Dehydrogenase Total Creatine Kinase CK-MB (CK-2) C-Reactive Protein Total Protein Albumin Troponin T HDL Cholesterol Arterial Blood Glucose Urine WBC (Auto) Urine Creatinine Urine Total Protein Phenytoin Coronavirus (PCR) Crossmatch 07/21/20 07/21/20 07/21/20 05:30 12:21 18:17 WBC RBC Hgb Hct MCHC RDW Lymph % (Auto) [place] % (Auto) Eos % (Auto) Lymph # [place] # Lymph # (Auto) [place] # (Auto) Eos # (Auto) Seg Neutrophils % Seg Neuts % (Manual) Lymphocytes % (Manual) Seg Neutrophils # Seg Neutrophils # Man Lymphocytes # (Manual) Monocytes % (Manual) Eosinophils % (Manual) Monocytes # (Manual) Eosinophils # (Manual) D-Dimer Heparin Anti-Xa Level ABG pH POC ABG pCO2 POC ABG pO2 ABG pO2 ABG HCO3 ABG O2 Saturation ABG Base Excess ABG Hemoglobin ABG Oxyhemoglobin VBG pH ABG Sodium ABG Potassium ABG Glucose Oxyhemoglobin Sodium Potassium Chloride Carbon Dioxide BUN Creatinine Glucose POC Glucose 153 H 144 H 160 H Lactic Acid Calcium Ferritin AST Alkaline Phosphatase Magnesium Lactate Dehydrogenase Total Creatine Kinase CK-MB (CK-2) C-Reactive Protein Total Protein Albumin Troponin T HDL Cholesterol Arterial Blood Glucose Urine WBC (Auto) Urine Creatinine Urine Total Protein Phenytoin Coronavirus (PCR) Crossmatch 07/22/20 07/22/20 07/22/20 00:45 05:52 12:03 WBC RBC Hgb Hct MCHC RDW Lymph % (Auto) [place] % (Auto) Eos % (Auto) Lymph # [place] # Lymph # (Auto) [place] # (Auto) Eos # (Auto) Seg Neutrophils % Seg Neuts % (Manual) Lymphocytes % (Manual) Seg Neutrophils # Seg Neutrophils # Man Lymphocytes # (Manual) Monocytes % (Manual) Eosinophils % (Manual) Monocytes # (Manual) Eosinophils # (Manual) D-Dimer Heparin Anti-Xa Level ABG pH POC ABG pCO2 POC ABG pO2 ABG pO2 ABG HCO3 ABG O2 Saturation ABG Base Excess ABG Hemoglobin ABG Oxyhemoglobin VBG pH ABG Sodium ABG Potassium ABG Glucose Oxyhemoglobin Sodium Potassium Chloride Carbon Dioxide BUN Creatinine Glucose POC Glucose 128 H 126 H 157 H Lactic Acid Calcium Ferritin AST Alkaline Phosphatase Magnesium Lactate Dehydrogenase Total Creatine Kinase CK-MB (CK-2) C-Reactive Protein Total Protein Albumin Troponin T HDL Cholesterol Arterial Blood Glucose Urine WBC (Auto) Urine Creatinine Urine Total Protein Phenytoin Coronavirus (PCR) Crossmatch 07/22/20 07/22/20 07/23/20 18:23 23:20 06:06 WBC RBC Hgb Hct MCHC RDW Lymph % (Auto) [place] % (Auto) Eos % (Auto) Lymph # [place] # Lymph # (Auto) [place] # (Auto) Eos # (Auto) Seg Neutrophils % Seg Neuts % (Manual) Lymphocytes % (Manual) Seg Neutrophils # Seg Neutrophils # Man Lymphocytes # (Manual) Monocytes % (Manual) Eosinophils % (Manual) Monocytes # (Manual) Eosinophils # (Manual) D-Dimer Heparin Anti-Xa Level ABG pH POC ABG pCO2 POC ABG pO2 ABG pO2 ABG HCO3 ABG O2 Saturation ABG Base Excess ABG Hemoglobin ABG Oxyhemoglobin VBG pH ABG Sodium ABG Potassium ABG Glucose Oxyhemoglobin Sodium Potassium Chloride Carbon Dioxide BUN Creatinine Glucose POC Glucose 152 H 122 H 143 H Lactic Acid Calcium Ferritin AST Alkaline Phosphatase Magnesium Lactate Dehydrogenase Total Creatine Kinase CK-MB (CK-2) C-Reactive Protein Total Protein Albumin Troponin T HDL Cholesterol Arterial Blood Glucose Urine WBC (Auto) Urine Creatinine Urine Total Protein Phenytoin Coronavirus (PCR) Crossmatch 07/23/20 07/23/20 07/23/20 12:11 17:38 19:23 WBC RBC Hgb Hct MCHC RDW Lymph % (Auto) [place] % (Auto) Eos % (Auto) Lymph # [place] # Lymph # (Auto) [place] # (Auto) Eos # (Auto) Seg Neutrophils % Seg Neuts % (Manual) Lymphocytes % (Manual) Seg Neutrophils # Seg Neutrophils # Man Lymphocytes # (Manual) Monocytes % (Manual) Eosinophils % (Manual) Monocytes # (Manual) Eosinophils # (Manual) D-Dimer Heparin Anti-Xa Level ABG pH POC ABG pCO2 POC ABG pO2 ABG pO2 ABG HCO3 ABG O2 Saturation ABG Base Excess ABG Hemoglobin ABG Oxyhemoglobin VBG pH ABG Sodium ABG Potassium ABG Glucose Oxyhemoglobin Sodium 129 L D Potassium 5.8 H Chloride 95.6 L Carbon Dioxide BUN 98 H Creatinine 2.1 H Glucose 167 H POC Glucose 210 H 181 H Lactic Acid Calcium Ferritin AST Alkaline Phosphatase Magnesium Lactate Dehydrogenase Total Creatine Kinase CK-MB (CK-2) C-Reactive Protein Total Protein Albumin 2.2 L Troponin T HDL Cholesterol Arterial Blood Glucose Urine WBC (Auto) Urine Creatinine Urine Total Protein Phenytoin Coronavirus (PCR) Crossmatch 07/24/20 07/24/20 07/24/20 00:00 04:29 04:29 WBC RBC 2.53 L Hgb 7.5 L Hct 22.8 L MCHC RDW 16.8 H Lymph % (Auto) 9.4 L [place] % (Auto) 10.4 H Eos % (Auto) 5.9 H Lymph # [place] # Lymph # (Auto) 0.8 L [place] # (Auto) 0.9 H Eos # (Auto) 0.5 H Seg Neutrophils % 73.5 H Seg Neuts % (Manual) Lymphocytes % (Manual) Seg Neutrophils # Seg Neutrophils # Man Lymphocytes # (Manual) Monocytes % (Manual) Eosinophils % (Manual) Monocytes # (Manual) Eosinophils # (Manual) D-Dimer Heparin Anti-Xa Level ABG pH POC ABG pCO2 POC ABG pO2 ABG pO2 ABG HCO3 ABG O2 Saturation ABG Base Excess ABG Hemoglobin ABG Oxyhemoglobin VBG pH ABG Sodium ABG Potassium ABG Glucose Oxyhemoglobin Sodium Potassium Chloride Carbon Dioxide BUN Creatinine Glucose POC Glucose 201 H Lactic Acid Calcium Ferritin AST Alkaline Phosphatase Magnesium Lactate Dehydrogenase Total Creatine Kinase CK-MB (CK-2) C-Reactive Protein Total Protein Albumin Troponin T HDL Cholesterol Arterial Blood Glucose Urine WBC (Auto) Urine Creatinine Urine Total Protein Phenytoin 9.4 L Coronavirus (PCR) Crossmatch 07/24/20 07/24/20 07/24/20 04:29 05:11 12:14 WBC RBC Hgb Hct MCHC RDW Lymph % (Auto) [place] % (Auto) Eos % (Auto) Lymph # [place] # Lymph # (Auto) [place] # (Auto) Eos # (Auto) Seg Neutrophils % Seg Neuts % (Manual) Lymphocytes % (Manual) Seg Neutrophils # Seg Neutrophils # Man Lymphocytes # (Manual) Monocytes % (Manual) Eosinophils % (Manual) Monocytes # (Manual) Eosinophils # (Manual) D-Dimer Heparin Anti-Xa Level ABG pH POC ABG pCO2 POC ABG pO2 ABG pO2 ABG HCO3 ABG O2 Saturation ABG Base Excess ABG Hemoglobin ABG Oxyhemoglobin VBG pH ABG Sodium ABG Potassium ABG Glucose Oxyhemoglobin Sodium 134 L Potassium 5.5 H Chloride Carbon Dioxide BUN 97 H Creatinine 2.2 H Glucose 149 H POC Glucose 142 H 146 H Lactic Acid Calcium Ferritin AST Alkaline Phosphatase Magnesium 2.60 H Lactate Dehydrogenase Total Creatine Kinase CK-MB (CK-2) C-Reactive Protein Total Protein Albumin Troponin T HDL Cholesterol Arterial Blood Glucose Urine WBC (Auto) Urine Creatinine Urine Total Protein Phenytoin Coronavirus (PCR) Crossmatch 07/24/20 07/24/20 07/25/20 18:12 21:00 00:08 WBC RBC Hgb Hct MCHC RDW Lymph % (Auto) [place] % (Auto) Eos % (Auto) Lymph # [place] # Lymph # (Auto) [place] # (Auto) Eos # (Auto) Seg Neutrophils % Seg Neuts % (Manual) Lymphocytes % (Manual) Seg Neutrophils # Seg Neutrophils # Man Lymphocytes # (Manual) Monocytes % (Manual) Eosinophils % (Manual) Monocytes # (Manual) Eosinophils # (Manual) D-Dimer Heparin Anti-Xa Level ABG pH POC ABG pCO2 POC ABG pO2 ABG pO2 ABG HCO3 ABG O2 Saturation ABG Base Excess ABG Hemoglobin ABG Oxyhemoglobin VBG pH ABG Sodium ABG Potassium ABG Glucose Oxyhemoglobin Sodium Potassium Chloride Carbon Dioxide BUN Creatinine Glucose POC Glucose 182 H 170 H 129 H Lactic Acid Calcium Ferritin AST Alkaline Phosphatase Magnesium Lactate Dehydrogenase Total Creatine Kinase CK-MB (CK-2) C-Reactive Protein Total Protein Albumin Troponin T HDL Cholesterol Arterial Blood Glucose Urine WBC (Auto) Urine Creatinine Urine Total Protein Phenytoin Coronavirus (PCR) Crossmatch 07/25/20 07/25/20 07/25/20 04:24 04:24 12:19 WBC RBC 2.51 L Hgb 7.5 L Hct 22.3 L MCHC RDW 17.4 H Lymph % (Auto) [place] % (Auto) Eos % (Auto) Lymph # [place] # Lymph # (Auto) [place] # (Auto) Eos # (Auto) Seg Neutrophils % Seg Neuts % (Manual) Lymphocytes % (Manual) Seg Neutrophils # Seg Neutrophils # Man Lymphocytes # (Manual) Monocytes % (Manual) Eosinophils % (Manual) Monocytes # (Manual) Eosinophils # (Manual) D-Dimer Heparin Anti-Xa Level ABG pH POC ABG pCO2 POC ABG pO2 ABG pO2 ABG HCO3 ABG O2 Saturation ABG Base Excess ABG Hemoglobin ABG Oxyhemoglobin VBG pH ABG Sodium ABG Potassium ABG Glucose Oxyhemoglobin Sodium 132 L Potassium Chloride 95.1 L Carbon Dioxide 21 L BUN 95 H Creatinine 2.5 H Glucose 108 H POC Glucose 122 H Lactic Acid Calcium Ferritin AST Alkaline Phosphatase Magnesium Lactate Dehydrogenase Total Creatine Kinase CK-MB (CK-2) C-Reactive Protein Total Protein Albumin Troponin T HDL Cholesterol Arterial Blood Glucose Urine WBC (Auto) Urine Creatinine Urine Total Protein Phenytoin Coronavirus (PCR) Crossmatch 07/25/20 07/25/20 07/26/20 18:11 23:24 04:22 WBC RBC Hgb Hct MCHC RDW Lymph % (Auto) [place] % (Auto) Eos % (Auto) Lymph # [place] # Lymph # (Auto) [place] # (Auto) Eos # (Auto) Seg Neutrophils % Seg Neuts % (Manual) Lymphocytes % (Manual) Seg Neutrophils # Seg Neutrophils # Man Lymphocytes # (Manual) Monocytes % (Manual) Eosinophils % (Manual) Monocytes # (Manual) Eosinophils # (Manual) D-Dimer Heparin Anti-Xa Level ABG pH POC ABG pCO2 POC ABG pO2 ABG pO2 ABG HCO3 ABG O2 Saturation ABG Base Excess ABG Hemoglobin ABG Oxyhemoglobin VBG pH ABG Sodium ABG Potassium ABG Glucose Oxyhemoglobin Sodium 132 L Potassium Chloride 96.2 L Carbon Dioxide 21 L BUN 99 H Creatinine 2.5 H Glucose 132 H POC Glucose 137 H 117 H Lactic Acid Calcium 8.2 L Ferritin AST Alkaline Phosphatase Magnesium Lactate Dehydrogenase Total Creatine Kinase CK-MB (CK-2) C-Reactive Protein Total Protein Albumin Troponin T HDL Cholesterol Arterial Blood Glucose Urine WBC (Auto) Urine Creatinine Urine Total Protein Phenytoin Coronavirus (PCR) Crossmatch 10/07/26/20 07/26/20 05:58 12:21 17:31 WBC RBC Hgb Hct MCHC RDW Lymph % (Auto) [place] % (Auto) Eos % (Auto) Lymph # [place] # Lymph # (Auto) [place] # (Auto) Eos # (Auto) Seg Neutrophils % Seg Neuts % (Manual) Lymphocytes % (Manual) Seg Neutrophils # Seg Neutrophils # Man Lymphocytes # (Manual) Monocytes % (Manual) Eosinophils % (Manual) Monocytes # (Manual) Eosinophils # (Manual) D-Dimer Heparin Anti-Xa Level ABG pH POC ABG pCO2 POC ABG pO2 ABG pO2 ABG HCO3 ABG O2 Saturation ABG Base Excess ABG Hemoglobin ABG Oxyhemoglobin VBG pH ABG Sodium ABG Potassium ABG Glucose Oxyhemoglobin Sodium Potassium Chloride Carbon Dioxide BUN Creatinine Glucose POC Glucose 110 H 142 H 180 H Lactic Acid Calcium Ferritin AST Alkaline Phosphatase Magnesium Lactate Dehydrogenase Total Creatine Kinase CK-MB (CK-2) C-Reactive Protein Total Protein Albumin Troponin T HDL Cholesterol Arterial Blood Glucose Urine WBC (Auto) Urine Creatinine Urine Total Protein Phenytoin Coronavirus (PCR) Crossmatch 07/26/20 07/27/20 07/27/20 23:36 03:36 05:36 WBC RBC 2.49 L Hgb 7.3 L Hct 22.2 L MCHC RDW 17.2 H Lymph % (Auto) 11.0 L [place] % (Auto) 11.7 H Eos % (Auto) Lymph # [place] # Lymph # (Auto) 0.8 L [place] # (Auto) 0.9 H Eos # (Auto) Seg Neutrophils % 72.3 H Seg Neuts % (Manual) Lymphocytes % (Manual) Seg Neutrophils # Seg Neutrophils # Man Lymphocytes # (Manual) Monocytes % (Manual) Eosinophils % (Manual) Monocytes # (Manual) Eosinophils # (Manual) D-Dimer Heparin Anti-Xa Level ABG pH POC ABG pCO2 POC ABG pO2 ABG pO2 ABG HCO3 ABG O2 Saturation ABG Base Excess ABG Hemoglobin ABG Oxyhemoglobin VBG pH ABG Sodium ABG Potassium ABG Glucose Oxyhemoglobin Sodium Potassium Chloride Carbon Dioxide BUN Creatinine Glucose POC Glucose 162 H 118 H Lactic Acid Calcium Ferritin AST Alkaline Phosphatase Magnesium Lactate Dehydrogenase Total Creatine Kinase CK-MB (CK-2) C-Reactive Protein Total Protein Albumin Troponin T HDL Cholesterol Arterial Blood Glucose Urine WBC (Auto) Urine Creatinine Urine Total Protein Phenytoin Coronavirus (PCR) Crossmatch 07/27/20 07/27/20 07/27/20 05:36 12:19 17:36 WBC RBC Hgb Hct MCHC RDW Lymph % (Auto) [place] % (Auto) Eos % (Auto) Lymph # [place] # Lymph # (Auto) [place] # (Auto) Eos # (Auto) Seg Neutrophils % Seg Neuts % (Manual) Lymphocytes % (Manual) Seg Neutrophils # Seg Neutrophils # Man Lymphocytes # (Manual) Monocytes % (Manual) Eosinophils % (Manual) Monocytes # (Manual) Eosinophils # (Manual) D-Dimer Heparin Anti-Xa Level ABG pH POC ABG pCO2 POC ABG pO2 ABG pO2 ABG HCO3 ABG O2 Saturation ABG Base Excess ABG Hemoglobin ABG Oxyhemoglobin VBG pH ABG Sodium ABG Potassium ABG Glucose Oxyhemoglobin Sodium 135 L Potassium 5.3 H Chloride Carbon Dioxide 21 L BUN 103 H Creatinine 2.6 H Glucose 113 H POC Glucose 131 H 151 H Lactic Acid Calcium 8.1 L Ferritin AST Alkaline Phosphatase Magnesium Lactate Dehydrogenase Total Creatine Kinase CK-MB (CK-2) C-Reactive Protein Total Protein Albumin Troponin T HDL Cholesterol Arterial Blood Glucose Urine WBC (Auto) Urine Creatinine Urine Total Protein Phenytoin Coronavirus (PCR) Crossmatch 07/27/20 07/28/20 07/28/20 23:29 04:30 04:30 WBC RBC 2.50 L Hgb 7.3 L Hct 22.2 L MCHC RDW 17.3 H Lymph % (Auto) 8.7 L [place] % (Auto) 8.3 H Eos % (Auto) Lymph # [place] # Lymph # (Auto) 0.7 L [place] # (Auto) Eos # (Auto) Seg Neutrophils % 79.1 H Seg Neuts % (Manual) Lymphocytes % (Manual) Seg Neutrophils # Seg Neutrophils # Man Lymphocytes # (Manual) Monocytes % (Manual) Eosinophils % (Manual) Monocytes # (Manual) Eosinophils # (Manual) D-Dimer Heparin Anti-Xa Level ABG pH POC ABG pCO2 POC ABG pO2 ABG pO2 ABG HCO3 ABG O2 Saturation ABG Base Excess ABG Hemoglobin ABG Oxyhemoglobin VBG pH ABG Sodium ABG Potassium ABG Glucose Oxyhemoglobin Sodium 135 L Potassium 5.2 H Chloride 96.8 L Carbon Dioxide 20 L BUN 107 H Creatinine 2.9 H Glucose POC Glucose 124 H Lactic Acid Calcium 8.2 L Ferritin AST Alkaline Phosphatase Magnesium 2.70 H Lactate Dehydrogenase Total Creatine Kinase CK-MB (CK-2) C-Reactive Protein Total Protein Albumin Troponin T HDL Cholesterol Arterial Blood Glucose Urine WBC (Auto) Urine Creatinine Urine Total Protein Phenytoin Coronavirus (PCR) Crossmatch 07/28/20 07/29/20 07/29/20 17:35 00:11 06:45 WBC RBC Hgb Hct MCHC RDW Lymph % (Auto) [place] % (Auto) Eos % (Auto) Lymph # [place] # Lymph # (Auto) [place] # (Auto) Eos # (Auto) Seg Neutrophils % Seg Neuts % (Manual) Lymphocytes % (Manual) Seg Neutrophils # Seg Neutrophils # Man Lymphocytes # (Manual) Monocytes % (Manual) Eosinophils % (Manual) Monocytes # (Manual) Eosinophils # (Manual) D-Dimer Heparin Anti-Xa Level ABG pH POC ABG pCO2 POC ABG pO2 ABG pO2 ABG HCO3 ABG O2 Saturation ABG Base Excess ABG Hemoglobin ABG Oxyhemoglobin VBG pH ABG Sodium ABG Potassium ABG Glucose Oxyhemoglobin Sodium Potassium Chloride Carbon Dioxide BUN Creatinine Glucose POC Glucose 146 H 143 H 179 H Lactic Acid Calcium Ferritin AST Alkaline Phosphatase Magnesium Lactate Dehydrogenase Total Creatine Kinase CK-MB (CK-2) C-Reactive Protein Total Protein Albumin Troponin T HDL Cholesterol Arterial Blood Glucose Urine WBC (Auto) Urine Creatinine Urine Total Protein Phenytoin Coronavirus (PCR) Crossmatch 07/29/20 07/29/20 07/29/20 11:54 13:01 13:01 WBC RBC 2.40 L Hgb 7.1 L Hct 20.9 L MCHC RDW 17.5 H Lymph % (Auto) [place] % (Auto) Eos % (Auto) Lymph # [place] # Lymph # (Auto) [place] # (Auto) Eos # (Auto) Seg Neutrophils % Seg Neuts % (Manual) 86.0 H Lymphocytes % (Manual) 6.0 L Seg Neutrophils # Seg Neutrophils # Man 8.9 H Lymphocytes # (Manual) 0.6 L Monocytes % (Manual) 8.0 H Eosinophils % (Manual) Monocytes # (Manual) Eosinophils # (Manual) D-Dimer Heparin Anti-Xa Level ABG pH POC ABG pCO2 POC ABG pO2 ABG pO2 ABG HCO3 ABG O2 Saturation ABG Base Excess ABG Hemoglobin ABG Oxyhemoglobin VBG pH ABG Sodium ABG Potassium ABG Glucose Oxyhemoglobin Sodium 129 L Potassium Chloride 92.9 L Carbon Dioxide BUN 112 H Creatinine 3.0 H Glucose 142 H POC Glucose 170 H Lactic Acid Calcium 7.9 L Ferritin AST Alkaline Phosphatase Magnesium Lactate Dehydrogenase Total Creatine Kinase CK-MB (CK-2) C-Reactive Protein Total Protein Albumin Troponin T HDL Cholesterol Arterial Blood Glucose Urine WBC (Auto) Urine Creatinine Urine Total Protein Phenytoin Coronavirus (PCR) Crossmatch 07/29/20 07/30/20 07/30/20 22:45 05:01 11:45 WBC RBC Hgb Hct MCHC RDW Lymph % (Auto) [place] % (Auto) Eos % (Auto) Lymph # [place] # Lymph # (Auto) [place] # (Auto) Eos # (Auto) Seg Neutrophils % Seg Neuts % (Manual) Lymphocytes % (Manual) Seg Neutrophils # Seg Neutrophils # Man Lymphocytes # (Manual) Monocytes % (Manual) Eosinophils % (Manual) Monocytes # (Manual) Eosinophils # (Manual) D-Dimer Heparin Anti-Xa Level ABG pH POC ABG pCO2 POC ABG pO2 ABG pO2 ABG HCO3 ABG O2 Saturation ABG Base Excess ABG Hemoglobin ABG Oxyhemoglobin VBG pH ABG Sodium ABG Potassium ABG Glucose Oxyhemoglobin Sodium Potassium Chloride Carbon Dioxide BUN Creatinine Glucose POC Glucose 129 H 150 H 130 H Lactic Acid Calcium Ferritin AST Alkaline Phosphatase Magnesium Lactate Dehydrogenase Total Creatine Kinase CK-MB (CK-2) C-Reactive Protein Total Protein Albumin Troponin T HDL Cholesterol Arterial Blood Glucose Urine WBC (Auto) Urine Creatinine Urine Total Protein Phenytoin Coronavirus (PCR) Crossmatch 07/30/20 07/30/20 07/30/20 17:54 21:26 23:58 WBC RBC Hgb Hct MCHC RDW Lymph % (Auto) [place] % (Auto) Eos % (Auto) Lymph # [place] # Lymph # (Auto) [place] # (Auto) Eos # (Auto) Seg Neutrophils % Seg Neuts % (Manual) Lymphocytes % (Manual) Seg Neutrophils # Seg Neutrophils # Man Lymphocytes # (Manual) Monocytes % (Manual) Eosinophils % (Manual) Monocytes # (Manual) Eosinophils # (Manual) D-Dimer Heparin Anti-Xa Level ABG pH POC ABG pCO2 POC ABG pO2 ABG pO2 ABG HCO3 ABG O2 Saturation ABG Base Excess ABG Hemoglobin ABG Oxyhemoglobin VBG pH ABG Sodium ABG Potassium ABG Glucose Oxyhemoglobin Sodium Potassium Chloride Carbon Dioxide BUN Creatinine Glucose POC Glucose 143 H 124 H 142 H Lactic Acid Calcium Ferritin AST Alkaline Phosphatase Magnesium Lactate Dehydrogenase Total Creatine Kinase CK-MB (CK-2) C-Reactive Protein Total Protein Albumin Troponin T HDL Cholesterol Arterial Blood Glucose Urine WBC (Auto) Urine Creatinine Urine Total Protein Phenytoin Coronavirus (PCR) Crossmatch 07/31/20 07/31/20 07/31/20 05:43 11:35 18:07 WBC RBC Hgb Hct MCHC RDW Lymph % (Auto) Storey % (Auto) Eos % (Auto) Lymph # Storey # Lymph # (Auto) Storey # (Auto) Eos # (Auto) Seg Neutrophils % Seg Neuts % (Manual) Lymphocytes % (Manual) Seg Neutrophils # Seg Neutrophils # Man Lymphocytes # (Manual) Monocytes % (Manual) Eosinophils % (Manual) Monocytes # (Manual) Eosinophils # (Manual) D-Dimer Heparin Anti-Xa Level ABG pH POC ABG pCO2 POC ABG pO2 ABG pO2 ABG HCO3 ABG O2 Saturation ABG Base Excess ABG Hemoglobin ABG Oxyhemoglobin VBG pH ABG Sodium ABG Potassium ABG Glucose Oxyhemoglobin Sodium Potassium Chloride Carbon Dioxide BUN Creatinine Glucose POC Glucose 152 H 179 H 129 H Lactic Acid Calcium Ferritin AST Alkaline Phosphatase Magnesium Lactate Dehydrogenase Total Creatine Kinase CK-MB (CK-2) C-Reactive Protein Total Protein Albumin Troponin T HDL Cholesterol Arterial Blood Glucose Urine WBC (Auto) Urine Creatinine Urine Total Protein Phenytoin Coronavirus (PCR) Crossmatch 07/31/20 07/31/20 08/01/20 21:30 22:12 00:25 WBC RBC Hgb Hct MCHC RDW Lymph % (Auto) Storey % (Auto) Eos % (Auto) Lymph # Storey # Lymph # (Auto) Storey # (Auto) Eos # (Auto) Seg Neutrophils % Seg Neuts % (Manual) Lymphocytes % (Manual) Seg Neutrophils # Seg Neutrophils # Man Lymphocytes # (Manual) Monocytes % (Manual) Eosinophils % (Manual) Monocytes # (Manual) Eosinophils # (Manual) D-Dimer Heparin Anti-Xa Level ABG pH POC ABG pCO2 POC ABG pO2 ABG pO2 ABG HCO3 ABG O2 Saturation ABG Base Excess ABG Hemoglobin ABG Oxyhemoglobin VBG pH ABG Sodium ABG Potassium ABG Glucose Oxyhemoglobin Sodium Potassium Chloride Carbon Dioxide BUN Creatinine Glucose POC Glucose 143 H 122 H 134 H Lactic Acid Calcium Ferritin AST Alkaline Phosphatase Magnesium Lactate Dehydrogenase Total Creatine Kinase CK-MB (CK-2) C-Reactive Protein Total Protein Albumin Troponin T HDL Cholesterol Arterial Blood Glucose Urine WBC (Auto) Urine Creatinine Urine Total Protein Phenytoin Coronavirus (PCR) Crossmatch 08/01/20 08/01/20 08/01/20 04:43 05:41 12:23 WBC RBC Hgb Hct MCHC RDW Lymph % (Auto) Storey % (Auto) Eos % (Auto) Lymph # Storey # Lymph # (Auto) Storey # (Auto) Eos # (Auto) Seg Neutrophils % Seg Neuts % (Manual) Lymphocytes % (Manual) Seg Neutrophils # Seg Neutrophils # Man Lymphocytes # (Manual) Monocytes % (Manual) Eosinophils % (Manual) Monocytes # (Manual) Eosinophils # (Manual) D-Dimer Heparin Anti-Xa Level ABG pH POC ABG pCO2 POC ABG pO2 ABG pO2 ABG HCO3 ABG O2 Saturation ABG Base Excess ABG Hemoglobin ABG Oxyhemoglobin VBG pH ABG Sodium ABG Potassium ABG Glucose Oxyhemoglobin Sodium 128 L Potassium 5.8 H Chloride 90.5 L Carbon Dioxide 19 L BUN 122 H Creatinine 3.4 H Glucose 124 H POC Glucose 130 H 128 H Lactic Acid Calcium 8.0 L Ferritin AST Alkaline Phosphatase Magnesium Lactate Dehydrogenase Total Creatine Kinase CK-MB (CK-2) C-Reactive Protein Total Protein Albumin Troponin T HDL Cholesterol Arterial Blood Glucose Urine WBC (Auto) Urine Creatinine Urine Total Protein Phenytoin Coronavirus (PCR) Crossmatch 08/01/20 08/02/20 08/02/20 17:28 00:06 05:32 WBC RBC Hgb Hct MCHC RDW Lymph % (Auto) Storey % (Auto) Eos % (Auto) Lymph # Storey # Lymph # (Auto) Storey # (Auto) Eos # (Auto) Seg Neutrophils % Seg Neuts % (Manual) Lymphocytes % (Manual) Seg Neutrophils # Seg Neutrophils # Man Lymphocytes # (Manual) Monocytes % (Manual) Eosinophils % (Manual) Monocytes # (Manual) Eosinophils # (Manual) D-Dimer Heparin Anti-Xa Level ABG pH POC ABG pCO2 POC ABG pO2 ABG pO2 ABG HCO3 ABG O2 Saturation ABG Base Excess ABG Hemoglobin ABG Oxyhemoglobin VBG pH ABG Sodium ABG Potassium ABG Glucose Oxyhemoglobin Sodium Potassium Chloride Carbon Dioxide BUN Creatinine Glucose POC Glucose 121 H 128 H 177 H Lactic Acid Calcium Ferritin AST Alkaline Phosphatase Magnesium Lactate Dehydrogenase Total Creatine Kinase CK-MB (CK-2) C-Reactive Protein Total Protein Albumin Troponin T HDL Cholesterol Arterial Blood Glucose Urine WBC (Auto) Urine Creatinine Urine Total Protein Phenytoin Coronavirus (PCR) Crossmatch 08/02/20 08/02/20 08/03/20 11:25 12:34 00:08 WBC RBC Hgb Hct MCHC RDW Lymph % (Auto) Storey % (Auto) Eos % (Auto) Lymph # Storey # Lymph # (Auto) Storey # (Auto) Eos # (Auto) Seg Neutrophils % Seg Neuts % (Manual) Lymphocytes % (Manual) Seg Neutrophils # Seg Neutrophils # Man Lymphocytes # (Manual) Monocytes % (Manual) Eosinophils % (Manual) Monocytes # (Manual) Eosinophils # (Manual) D-Dimer Heparin Anti-Xa Level ABG pH 7.344 L POC ABG pCO2 POC ABG pO2 ABG pO2 101.1 H ABG HCO3 ABG O2 Saturation ABG Base Excess -4.5 L ABG Hemoglobin 6.6 L ABG Oxyhemoglobin VBG pH ABG Sodium ABG Potassium ABG Glucose Oxyhemoglobin Sodium Potassium Chloride Carbon Dioxide BUN Creatinine Glucose POC Glucose 196 H 141 H Lactic Acid Calcium Ferritin AST Alkaline Phosphatase Magnesium Lactate Dehydrogenase Total Creatine Kinase CK-MB (CK-2) C-Reactive Protein Total Protein Albumin Troponin T HDL Cholesterol Arterial Blood Glucose Urine WBC (Auto) Urine Creatinine Urine Total Protein Phenytoin Coronavirus (PCR) Crossmatch 08/03/20 08/03/20 08/03/20 04:38 04:38 04:38 WBC 14.3 H RBC 2.42 L Hgb 7.0 L Hct 21.5 L MCHC RDW 18.1 H Lymph % (Auto) Storey % (Auto) Eos % (Auto) Lymph # Storey # Lymph # (Auto) Storey # (Auto) Eos # (Auto) Seg Neutrophils % Seg Neuts % (Manual) Lymphocytes % (Manual) Seg Neutrophils # Seg Neutrophils # Man Lymphocytes # (Manual) Monocytes % (Manual) Eosinophils % (Manual) Monocytes # (Manual) Eosinophils # (Manual) D-Dimer Heparin Anti-Xa Level ABG pH POC ABG pCO2 POC ABG pO2 ABG pO2 ABG HCO3 ABG O2 Saturation ABG Base Excess ABG Hemoglobin ABG Oxyhemoglobin VBG pH ABG Sodium ABG Potassium ABG Glucose Oxyhemoglobin Sodium 130 L Potassium Chloride 90.1 L Carbon Dioxide 20 L BUN 105 H Creatinine 3.1 H Glucose 115 H POC Glucose Lactic Acid 0.40 L Calcium 8.2 L Ferritin AST Alkaline Phosphatase Magnesium Lactate Dehydrogenase Total Creatine Kinase CK-MB (CK-2) C-Reactive Protein Total Protein Albumin Troponin T HDL Cholesterol Arterial Blood Glucose Urine WBC (Auto) Urine Creatinine Urine Total Protein Phenytoin Coronavirus (PCR) Crossmatch 08/03/20 08/03/20 08/03/20 05:33 12:04 17:51 WBC RBC Hgb Hct MCHC RDW Lymph % (Auto) Storey % (Auto) Eos % (Auto) Lymph # Storey # Lymph # (Auto) Storey # (Auto) Eos # (Auto) Seg Neutrophils % Seg Neuts % (Manual) Lymphocytes % (Manual) Seg Neutrophils # Seg Neutrophils # Man Lymphocytes # (Manual) Monocytes % (Manual) Eosinophils % (Manual) Monocytes # (Manual) Eosinophils # (Manual) D-Dimer Heparin Anti-Xa Level ABG pH POC ABG pCO2 POC ABG pO2 ABG pO2 ABG HCO3 ABG O2 Saturation ABG Base Excess ABG Hemoglobin ABG Oxyhemoglobin VBG pH ABG Sodium ABG Potassium ABG Glucose Oxyhemoglobin Sodium Potassium Chloride Carbon Dioxide BUN Creatinine Glucose POC Glucose 117 H 115 H 123 H Lactic Acid Calcium Ferritin AST Alkaline Phosphatase Magnesium Lactate Dehydrogenase Total Creatine Kinase CK-MB (CK-2) C-Reactive Protein Total Protein Albumin Troponin T HDL Cholesterol Arterial Blood Glucose Urine WBC (Auto) Urine Creatinine Urine Total Protein Phenytoin Coronavirus (PCR) Crossmatch 08/03/20 08/04/20 08/04/20 23:25 01:41 05:34 WBC RBC 2.20 L Hgb 6.5 L Hct 19.5 L* MCHC RDW 18.5 H Lymph % (Auto) 9.2 L Storey % (Auto) 9.8 H Eos % (Auto) Lymph # Storey # Lymph # (Auto) 0.8 L [place] # (Auto) Eos # (Auto) Seg Neutrophils % 77.7 H Seg Neuts % (Manual) Lymphocytes % (Manual) Seg Neutrophils # Seg Neutrophils # Man Lymphocytes # (Manual) Monocytes % (Manual) Eosinophils % (Manual) Monocytes # (Manual) Eosinophils # (Manual) D-Dimer Heparin Anti-Xa Level ABG pH POC ABG pCO2 POC ABG pO2 ABG pO2 ABG HCO3 ABG O2 Saturation ABG Base Excess ABG Hemoglobin ABG Oxyhemoglobin VBG pH ABG Sodium ABG Potassium ABG Glucose Oxyhemoglobin Sodium Potassium Chloride Carbon Dioxide BUN Creatinine Glucose POC Glucose 122 H 112 H Lactic Acid Calcium Ferritin AST Alkaline Phosphatase Magnesium Lactate Dehydrogenase Total Creatine Kinase CK-MB (CK-2) C-Reactive Protein Total Protein Albumin Troponin T HDL Cholesterol Arterial Blood Glucose Urine WBC (Auto) Urine Creatinine Urine Total Protein Phenytoin Coronavirus (PCR) Crossmatch 08/04/20 08/04/20 08/05/20 12:19 17:42 00:25 WBC RBC Hgb Hct MCHC RDW Lymph % (Auto) Storey % (Auto) Eos % (Auto) Lymph # Storey # Lymph # (Auto) [place]y # (Auto) Eos # (Auto) Seg Neutrophils % Seg Neuts % (Manual) Lymphocytes % (Manual) Seg Neutrophils # Seg Neutrophils # Man Lymphocytes # (Manual) Monocytes % (Manual) Eosinophils % (Manual) Monocytes # (Manual) Eosinophils # (Manual) D-Dimer Heparin Anti-Xa Level ABG pH POC ABG pCO2 POC ABG pO2 ABG pO2 ABG HCO3 ABG O2 Saturation ABG Base Excess ABG Hemoglobin ABG Oxyhemoglobin VBG pH ABG Sodium ABG Potassium ABG Glucose Oxyhemoglobin Sodium Potassium Chloride Carbon Dioxide BUN Creatinine Glucose POC Glucose 108 H 113 H 119 H Lactic Acid Calcium Ferritin AST Alkaline Phosphatase Magnesium Lactate Dehydrogenase Total Creatine Kinase CK-MB (CK-2) C-Reactive Protein Total Protein Albumin Troponin T HDL Cholesterol Arterial Blood Glucose Urine WBC (Auto) Urine Creatinine Urine Total Protein Phenytoin Coronavirus (PCR) Crossmatch 08/05/20 08/05/20 08/05/20 05:24 05:35 05:35 WBC RBC 2.13 L Hgb 6.2 L Hct 18.9 L* MCHC RDW 18.7 H Lymph % (Auto) 10.0 L Storey % (Auto) 8.5 H Eos % (Auto) Lymph # Storey # Lymph # (Auto) 0.8 L [place] # (Auto) Eos # (Auto) Seg Neutrophils % 78.1 H Seg Neuts % (Manual) Lymphocytes % (Manual) Seg Neutrophils # Seg Neutrophils # Man Lymphocytes # (Manual) Monocytes % (Manual) Eosinophils % (Manual) Monocytes # (Manual) Eosinophils # (Manual) D-Dimer Heparin Anti-Xa Level ABG pH POC ABG pCO2 POC ABG pO2 ABG pO2 ABG HCO3 ABG O2 Saturation ABG Base Excess ABG Hemoglobin ABG Oxyhemoglobin VBG pH ABG Sodium ABG Potassium ABG Glucose Oxyhemoglobin Sodium 135 L Potassium Chloride 96.3 L Carbon Dioxide BUN 89 H Creatinine 2.8 H Glucose 116 H POC Glucose 138 H Lactic Acid Calcium 7.5 L Ferritin AST 53 H Alkaline Phosphatase 501 H Magnesium Lactate Dehydrogenase Total Creatine Kinase CK-MB (CK-2) C-Reactive Protein Total Protein 6.1 L Albumin 2.2 L Troponin T HDL Cholesterol Arterial Blood Glucose Urine WBC (Auto) Urine Creatinine Urine Total Protein Phenytoin Coronavirus (PCR) Crossmatch CT scan - chest: report reviewed (no bowel perforation or obstruction) Allied health notes reviewed: nursing
[2020-08-05] MEDS: PANTOPRAZOLE 40 MG INJ IV SCH (09:12)
[2020-08-05] MEDS: SENNOSIDES ORAL LIQD 8.8 MG/5 ML ORAL LIQD FEEDTUBE SCH ×2 (09:12→21:17)
[2020-08-05] MEDS: levETIRAcetam 1,000 MG in DEXTROSE 5% IN WATER 100 ML IV SCH ×2 (09:18→21:32)
[2020-08-05] MEDS: amLODIPine 10 MG TAB PO SCH (10:55)
[2020-08-05] MEDS: MINOXIDIL 2.5 MG TAB PO SCH ×2 (10:56→21:18)
[2020-08-05] MEDS: EPOETIN ALFA 10,000 UNIT/1 ML INJ IV PRN (11:04)
--- NOTE | 2020-08-05 11:24 | Progress Note ---
Assessment and Plan - Patient Problems (1) Acute kidney injury (AVANI) with acute tubular necrosis (ATN) Current Visit: Yes Status: Acute Plan to address problem: currently dialysis dependent. Cont HD on MWF schedule for volume control/solute clearance (2) Pneumonia due to COVID-19 virus Current Visit: Yes Status: Acute Plan to address problem: Patient has completed course of Remdesevir. Completed course of steroids. (3) Acute hypoxemic respiratory failure Current Visit: Yes Status: Acute Plan to address problem: Being managed by pulmonary. S/p Extubation 06/12. Back on respirator. Continue management by pulmonary/critical care (4) Cardiac arrest Current Visit: Yes Status: Acute Plan to address problem: s/p ACLS with eventual ROSC (5) Cardiomyopathy Current Visit: No Status: Acute Qualifiers: Cardiomyopathy type: unspecified Qualified Code(s): I42.9 - Cardiomyopathy, unspecified Plan to address problem: Patient has peripheral edema. Has not responded to Bumex infusion. cont HD for volume control (6) Type 2 diabetes mellitus with diabetic chronic kidney disease Current Visit: Yes Status: Acute Plan to address problem: Blood sugar management by primary attending (7) Hyponatremia Current Visit: Yes Status: Acute Plan to address problem: likely hypervolemic nature, to correct volume status with HD Subjective Date of service: 08/05/20 Principal diagnosis: Ac hypoxemic resp failure; COVID-19; pneumonia; CHF; Pulm HTN; OHS; DM II Interval history: Pt remains on vent support. on vasopressor support with dopamin. Tolerating HD without hemodynamic instabilities Objective - Exam Narrative Exam: I did not do physical exam at the bedside due to PPE conservation with the current COVID-19 pandemic. - Vital Signs Vital signs: Vital Signs - 12hr 08/04/20 08/04/20 08/05/20 23:30 23:46 00:00 Temperature 97.9 F Pulse Rate 60 60 61 Pulse Rate [ 58 L From Monitor] Respiratory 11 L 19 17 Rate Blood Pressure 161/50 168/48 148/43 O2 Sat by Pulse 98 99 97 Oximetry O2 Sat by Pulse Oximetry [ Anterior Bilateral Throughout] 08/05/20 08/05/20 08/05/20 00:08 00:16 00:30 Temperature Pulse Rate 62 60 59 L Pulse Rate [ From Monitor] Respiratory 15 13 Rate Blood Pressure 148/43 149/43 154/43 O2 Sat by Pulse 98 99 98 Oximetry O2 Sat by Pulse Oximetry [ Anterior Bilateral Throughout] 08/05/20 08/05/20 08/05/20 00:46 01:00 01:15 Temperature Pulse Rate 59 L 61 61 Pulse Rate [ From Monitor] Respiratory 14 15 14 Rate Blood Pressure 151/42 154/41 146/52 O2 Sat by Pulse 99 99 98 Oximetry O2 Sat by Pulse Oximetry [ Anterior Bilateral Throughout] 08/05/20 08/05/20 08/05/20 01:30 01:45 02:00 Temperature Pulse Rate 61 61 58 L Pulse Rate [ From Monitor] Respiratory 15 14 16 Rate Blood Pressure 156/46 153/61 151/53 O2 Sat by Pulse 99 97 97 Oximetry O2 Sat by Pulse Oximetry [ Anterior Bilateral Throughout] 08/05/20 08/05/20 08/05/20 02:15 02:30 02:45 Temperature Pulse Rate 61 62 61 Pulse Rate [ From Monitor] Respiratory 19 19 13 Rate Blood Pressure 147/57 142/52 144/51 O2 Sat by Pulse 98 99 99 Oximetry O2 Sat by Pulse Oximetry [ Anterior Bilateral Throughout] 08/05/20 08/05/20 08/05/20 03:00 03:15 03:30 Temperature Pulse Rate 61 78 75 Pulse Rate [ From Monitor] Respiratory 16 15 17 Rate Blood Pressure 150/54 163/74 161/49 O2 Sat by Pulse 99 97 98 Oximetry O2 Sat by Pulse Oximetry [ Anterior Bilateral Throughout] 08/05/20 08/05/20 08/05/20 03:45 04:00 04:15 Temperature 97.3 F L Pulse Rate 77 77 76 Pulse Rate [ 77 From Monitor] Respiratory 17 18 14 Rate Blood Pressure 163/58 152/67 161/52 O2 Sat by Pulse 97 96 97 Oximetry O2 Sat by Pulse Oximetry [ Anterior Bilateral Throughout] 08/05/20 08/05/20 08/05/20 04:30 04:33 04:45 Temperature Pulse Rate 76 77 77 Pulse Rate [ From Monitor] Respiratory 17 16 Rate Blood Pressure 155/43 155/43 162/54 O2 Sat by Pulse 97 97 97 Oximetry O2 Sat by Pulse Oximetry [ Anterior Bilateral Throughout] 08/05/20 08/05/20 08/05/20 05:00 05:15 05:30 Temperature Pulse Rate 78 77 74 Pulse Rate [ From Monitor] Respiratory 20 15 20 Rate Blood Pressure 151/51 159/57 O2 Sat by Pulse 97 97 97 Oximetry O2 Sat by Pulse Oximetry [ Anterior Bilateral Throughout] 08/05/20 08/05/20 08/05/20 05:46 06:00 06:15 Temperature Pulse Rate 59 L 61 75 Pulse Rate [ From Monitor] Respiratory 18 19 18 Rate Blood Pressure 131/41 135/65 148/54 O2 Sat by Pulse 98 98 97 Oximetry O2 Sat by Pulse Oximetry [ Anterior Bilateral Throughout] 08/05/20 08/05/20 08/05/20 06:30 06:45 07:00 Temperature Pulse Rate 76 74 61 Pulse Rate [ From Monitor] Respiratory 17 18 18 Rate Blood Pressure 149/57 146/44 148/54 O2 Sat by Pulse 98 98 99 Oximetry O2 Sat by Pulse Oximetry [ Anterior Bilateral Throughout] 08/05/20 08/05/20 08/05/20 07:20 07:30 07:45 Temperature Pulse Rate 62 63 61 Pulse Rate [ From Monitor] Respiratory 17 18 16 Rate Blood Pressure 133/49 137/53 O2 Sat by Pulse 99 98 99 Oximetry O2 Sat by Pulse Oximetry [ Anterior Bilateral Throughout] 08/05/20 08/05/20 08/05/20 08:00 08:15 08:30 Temperature 98.0 F 98.0 F Pulse Rate 63 61 76 Pulse Rate [ 60 From Monitor] Respiratory 18 17 14 Rate Blood Pressure 130/50 136/49 145/55 O2 Sat by Pulse 99 99 98 Oximetry O2 Sat by Pulse 98 Oximetry [ Anterior Bilateral Throughout] 08/05/20 08/05/20 08/05/20 08:35 08:45 09:00 Temperature Pulse Rate 82 64 62 Pulse Rate [ From Monitor] Respiratory 21 17 Rate Blood Pressure 135/54 137/48 135/54 O2 Sat by Pulse 98 98 98 Oximetry O2 Sat by Pulse Oximetry [ Anterior Bilateral Throughout] 08/05/20 08/05/20 08/05/20 09:15 09:30 09:45 Temperature Pulse Rate 78 77 78 Pulse Rate [ From Monitor] Respiratory 19 15 15 Rate Blood Pressure 136/57 133/54 145/55 O2 Sat by Pulse 98 97 97 Oximetry O2 Sat by Pulse Oximetry [ Anterior Bilateral Throughout] 08/05/20 08/05/20 08/05/20 10:00 10:01 10:15 Temperature Pulse Rate 79 80 80 Pulse Rate [ From Monitor] Respiratory 18 17 Rate Blood Pressure 136/52 136/52 143/58 O2 Sat by Pulse 98 98 Oximetry O2 Sat by Pulse Oximetry [ Anterior Bilateral Throughout] 08/05/20 08/05/20 08/05/20 10:30 10:40 10:45 Temperature Pulse Rate 61 79 80 Pulse Rate [ From Monitor] Respiratory 17 14 Rate Blood Pressure 143/56 143/56 128/40 O2 Sat by Pulse 98 98 Oximetry O2 Sat by Pulse Oximetry [ Anterior Bilateral Throughout] 08/05/20 08/05/20 08/05/20 10:50 11:00 11:01 Temperature Pulse Rate 83 63 61 Pulse Rate [ From Monitor] Respiratory 17 15 Rate Blood Pressure 128/40 124/44 124/44 O2 Sat by Pulse 98 98 Oximetry O2 Sat by Pulse Oximetry [ Anterior Bilateral Throughout] 08/05/20 08/05/20 08/05/20 11:10 11:14 11:15 Temperature 98.0 F Pulse Rate 74 82 81 Pulse Rate [ From Monitor] Respiratory 11 L 18 Rate Blood Pressure 124/44 124/44 153/62 O2 Sat by Pulse 97 98 Oximetry O2 Sat by Pulse Oximetry [ Anterior Bilateral Throughout] - Lab 08/05/20 05:35 08/05/20 05:35 Most recent lab results ABG pH 7.344 pH Units (7.350-7.450) L 08/02/20 11:25 ABG pCO2 39.0 mm Hg 08/02/20 11:25 ABG pO2 101.1 mm Hg (80.0-90.0) H 08/02/20 11:25 ABG HCO3 20.8 mmol/L (20.0-26.0) 08/02/20 11:25 ABG O2 Saturation 97.5 % (95.0-99.0) 08/02/20 11:25 Calcium 7.5 mg/dL (8.4-10.2) L 08/05/20 05:35 Magnesium 2.70 mg/dL (1.7-2.3) H 07/28/20 04:30 Urine Creatinine 33.3 mg/dL (0.1-20.0) H 07/06/20 13:20 Urine Sodium 21 mmol/L 07/06/20 13:20 Urine Total Protein 196 mg/dL (5-11.8) H 06/06/20 04:00 Medications & Allergies - Medications Allergies/Adverse Reactions: Allergies No Known Allergies Allergy (Verified 01/21/20 12:28) Home Medications: Home Medications Medication Instructions Recorded Confirmed Last Taken Type AtorvaSTATin [Lipitor] 20 mg PO QHS 05/12/20 05/29/20 Unknown History lisinopriL [Zestril TAB] 40 mg PO QDAY 05/12/20 05/29/20 Unknown History metFORMIN [Glucophage] 850 mg PO BID 05/12/20 05/29/20 Unknown History Acetaminophen [Acetaminophen TAB] 650 mg PO Q4H PRN tablet 05/13/20 05/29/20 Unknown Rx Dicyclomine [Bentyl] 20 mg PO BID #20 tablet 05/13/20 05/29/20 Unknown Rx Famotidine [Pepcid] 20 mg PO BID #30 tablet 05/13/20 05/29/20 Unknown Rx carvediloL [Coreg] 6.25 mg PO BID #60 05/13/20 05/29/20 Unknown Rx Active Medications: Generic Name Dose Route Start Last Admin Trade Name Freq PRN Reason Stop Dose Admin Acetaminophen 650 mg 06/09/20 10:57 06/29/20 21:18 Tylenol FEEDTUBE 650 mg Q6H PRN Administration Fever >101 Amlodipine Besylate 10 mg 06/02/20 11:00 08/04/20 17:12 Amlodipine PO Not Given DAILY NELSON Lipase/Protease/Amylase 1 each 05/29/20 13:39 07/07/20 10:36 Pancremu Lawson 10,500 Unit FEEDTUBE 1 each PRN PRN Administration For Clogged Feeding Tube Epoetin Javon 10,000 unit 07/29/20 11:29 08/05/20 11:04 Procrit IV 10,000 unit SCOTTY PRN Administration hemodialysis Glycopyrrolate 2 mg 06/09/20 14:00 08/05/20 08:11 Glycopyrrolate PO 2 mg TID NELSON Administration Heparin Sodium (Porcine) 5,000 unit 06/30/20 14:00 08/05/20 05:18 Heparin SUB-Q 5,000 unit Q8HR NELSON Administration Heparin Sodium (Porcine) 5,000 unit 07/29/20 11:29 08/02/20 23:15 Heparin IV 5,000 unit SCOTTY PRN Administration hemodialysis Hydralazine HCl 100 mg 07/14/20 14:00 08/05/20 07:30 Apresoline PO Not Given TID [facility] Hydrophilic Ointment 1 applic 05/28/20 13:49 Vaseline Lip Therapy TP Q2HR PRN Dry Lips Norepinephrine 4 mg in 250 mls @ 7.5 mls/hr 07/23/20 20:00 08/05/20 05:21 Levophed Drip 4 Mg/Ns 250 Ml IV 0 mcg/min TITR NELSON 0 mls/hr Titration Protocol 2 MCG/MIN Dopamine HCl/Dextrose 800 mg in 250 mls @ 4.613 mls/hr 07/24/20 11:30 08/03/20 21:25 Intropin Drip 800 Mg/D5w 250 Ml IV 0 mcg/kg/min TITR NELSON 0 mls/hr Titration Protocol 2 MCG/KG/MIN Levetiracetam 1,000 mg/ 110 mls @ 400 mls/hr 08/03/20 10:00 08/05/20 09:18 Dextrose IV 400 mls/hr Q12HR NELSON Administration Phenytoin 150 mg/ Sodium 103 mls @ 408 mls/hr 08/03/20 09:00 08/05/20 05:18 Chloride IV 408 mls/hr Q8HR NELSON Administration Dextrose/Sodium Chloride 1,000 mls @ 50 mls/hr 08/04/20 18:00 08/04/20 12:00 D5/0.45ns IV 50 mls/hr DIRECT NELSON Administration Sodium Chloride 100 mls @ 999 mls/hr 08/04/20 22:27 Nacl 0.9% IV SOCTTY PRN Hypotension Insulin Glargine 10 units 06/08/20 22:00 08/04/20 22:21 Lantus SUB-Q Not Given QHS [facility] Insulin Human Lispro 0 unit 05/29/20 18:00 08/05/20 05:19 Humalog SUB-Q Not Given Q6H [facility] Protocol Labetalol HCl 20 mg 06/03/20 09:00 07/31/20 12:14 Labetalol IV 20 mg Q4H PRN Administration HYPERTENSION Minoxidil 5 mg 07/21/20 10:00 08/04/20 22:21 Loniten PO Not Given BID [facility] Multi-Ingred Cream/Lotion/Oil/Oint 1 applic 05/28/20 13:49 Artificial Tears Ophth Oint OU Q4HR PRN Dry Eye(s) Ondansetron HCl 4 mg 06/02/20 09:00 06/09/20 16:48 Zofran IV 4 mg Q8H PRN Administration Nausea And Vomiting Pantoprazole Sodium 40 mg 08/03/20 10:00 08/05/20 09:12 Protonix IV 40 mg QDAY NELSON Administration Senna 17.6 mg 06/03/20 10:00 08/05/20 09:12 Senokot FEEDTUBE 17.6 mg BID NELSON Administration Simple Syrup 15 ml 05/29/20 13:39 Simple Syrup FEEDTUBE PRN PRN Hypoglycemia Simple Syrup 30 ml 05/29/20 13:39 Simple Syrup FEEDTUBE PRN PRN Hypoglycemia Sodium Bicarbonate 325 mg 05/29/20 13:39 07/07/20 10:36 Sodium Bicarbonate FEEDTUBE 325 mg PRN PRN Administration For Clogged Feeding Tube Sodium Chloride 10 ml 05/28/20 22:00 08/05/20 09:20 Sodium Chloride Flush Syringe 10 Ml IV 10 ml BID NLESON Administration Sodium Chloride 10 ml 05/28/20 19:08 06/16/20 17:50 Sodium Chloride Flush Syringe 10 Ml IV 10 ml PRN PRN Administration LINE FLUSH
[2020-08-05] MEDS ORDERED: SODIUM CHLORIDE 0.9% 500 ML 500 ML IV NR (17:31)
--- NOTE | 2020-08-05 17:32 | Progress Note ---
Assessment and Plan --Acute hypoxemic respiratory failure; vent dependent intubated on admission, extubated on 06/12/20 then placed on high flow o2 patient developed another respiratory arrest on 06/26 - reintubated Patient not tolerating weaning parameters CC following, Surgery evaluated the patient for trach and PEG COVID-19 test positive x3, trach and PEG pending -- Hypertension; well controlled Continue amlodipine, clonidine and hydralazine and minoxidil, closely monitor blood pressures PRN labetalol --s/p cardiopulmonary arrest on admission, 06/26 and 07/01, EF 45-50% on 2d echo, medical Mx per cardiology --Bradycardia Patient is on dopamine and epinephrine for bradycardia beta-hugh discontinued, Heart rate is in the 60s to 70s --Anoxic brain injury, neurology consulted, neuro requested MRI brain, EEG MRI brain could not be done due to body habitus, --Seizures seizure precautions; continue Keppra, and Dilantin EEG showed epileptiform discharges per review of neurology note --Rectal bleeding; resolved --Acute blood loss anemia; total 4 units PRBC transfused monitor H&H, GI following, no plans of endoscopy --Severe sepsis; completed antibiotics per ID persistently positive for COVID-19 and treated for Klebsiella pneumoniae --COVID-19 b/l PNA Completed remdesivir on 06/02 Completed dexamethasone - Last dose 06/07 COVID 19 test positive x 3 during this admission --Superficial left cephalic vein DVT/elevated D-dimers[COVID 19] Patient initially started on heparin drip from 05/29/20 D-dimers improved [phone] treated with Eliquis 5 mg twice a day for 1 week[per ID] stop date 06/26/2020 -- Acute toxic metabolic encephalopathy, POA likely from sepsis and s/p cardiac arrest with possible anoxic injury -- Acute renal failure: Worsening BUN/creatinine 123/3.4 > 105/3.1 avoid nephrotoxins, Nephrology note reviewed Status post right femoral vascular catheter placement started on hemodialysis Discussed with Dr. Koehler --Klebsiella pneumonia: ID evaluated completed second round of 5 days of cefepime on 07/04/2020 --Acute on chronic systolic heart failure Cardiology following. Ef 45% --Transaminitis. Etiology likely from COVID-19. 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 The aggregate critical care time was [34] minutes. This time is in addition to time spent performing reported procedures but includes the following: [x] Data Review and interpretation [x] Patient assessment and monitoring of vital signs [x] Documentation [x] Medication orders and management Brief History: 64 YO Female with a medical history of HTN, Diastolic CHF, Pulmonary HTN, DM, Obesity Hypoventilation Syndrome presents to ED for evaluation of shortness of breath. As per staff, the EMS was notified for difficulty breathing. Upon arrival to the patient's home the patient was found to be in distress and was subsequently transported to [facility] for further evaluation and care. In route to [facility] the patient developed cardiac arrest and was treated in accordance with ACLS protocol with return of ROSC. Patient was seen and evaluated in the emergency department and was intubated and placed on ventilatory support. Patient admitted to ICU. Critical care team consulted in ED. She was found to have COVID-19 infection and was started on steroids and remdesivir. ID was consulted. Cardiology was consulted for her systolic heart failure and cardiac arrest. Patient completed treatment for COVID-19, then develop superimposed bacterial pneumonia with Klebsiella. She is now extubated, 06/12/2020 but remains confused and requiring high flow O2 and intermittent BiPAP. Patient had another cardiac arrest reintubated 06/26/2020, currently in ICU vent dependent, unable to do trach and PEG due to persistent COVID-19 positive state, as well as anoxic brain injury, unable to get MRI , neurology following. 05/28/2020 COVID-19 test positive 06/29/2020 COVID-19 test positive 07/14/2020 COVID-19 test positive 06/01. Patient remains intubated and on ventilatory support today. Patient has multiple organ system failure and has poor prognosis. Patient did not experienc e significant medical decompensation overnight but no improvement with current therapy. 06/02. Remains intubated. her BP is elevated. Started on nicardipine drip. Cardiology following. 06/03-06/04. BP is better. Hb stable. Completed remdesivir. ID , Cardiology and Critical care team on board 06/05. Bump in creatinine. I/O reviewed. Nephrology consulted. 06/06. Has slight improvement in renal function. Nephrology on board. On SBT today. Vitals stable. 06/07. Stable renal function. No need for HD as per nephrology. She is making urine. Plan for SBT. 06/08. Off sedation and very lethargic. Her BUN is going up - effect of steroids vs GI bleed. Her hemoglobin remains stable. Will check stool guaiac. Nephrology is following. WBC bumped to 16 today. 06/09: remains intubated, wbc trended up, Cr slightly trending down. cont TF, wean off vent as tolerated. 06/10: Cr trending down, cont to wean off vent as tolerated. 06/10; Cr much improved, cont iv fluid, tolerating tube feeding. stopped vac, iv cefepime for total 10 days. 06/11; creatinine 1.5 today, sodium level has normalized. Continue tube feeding, continue cefepime for 10 days. Continue to wean off as tolerated. 06/12: planned for extubation today 06/13: extubated yesterday, now on Bipap 06/14: patient on Bipap, remains on TF, restraint. cont to follow clinically 06/15: patient on high flow O2,remains on TF, restraint. cont to follow clinically . transfer to [facility] 06/16: Patient remains on high flow O2, intermittently on BiPAP. Tolerating tube feeding. cont to monitor at [facility] 06/17; patient on BiPAP. Remains confused and on tube feeding. Continue to monitor at IM. Wean off O2 as tolerated. 06/18; patient feels slightly better on high flow oxygen, minimally communicative, stable to be transferred out of [facility] to telemetry 06/20; remains hypoxic on high flow oxygen, today noncommunicative sleeping all the time, vital signs noted 06/21; more alert and awake confused at times and pulling, restraint for safety, on high flow oxygen We will request physical therapy once more stable 06/22; PT unable to assess due to safety concerns, remains hypoxic on high flow oxygen, BiPAP at night. minimally communicative 06/23: Remains on high flow O2, order for speech eval, continue tube feeding. Creatinine noted to be elevated today -2.4, increase IV fluid hydration. 06/24: Kidney function started worsening 06/23 -likely from hypotension. patient had episodes of hypotension on 06/22. Kidney function is unchanged from yesterday. No further episodes of hypotension. Follow-up electrolytes and renal function. patient remains on high flow O2 06/25: patient on 15L o2 with n/c. on Bipap at night. follow renal function and follow bmp . Placement not possible as patient unfunded. wean off o2 as tolerated. 06/26: hb 6.9 today, transfuse one unit. wean off from O2 as tolerated. check stool for occult blood. consult GI if stool is positive for blood. 06/27; Code blue called yesterday. ACLS initiated, Pt found to have Asystolic Arrest with eventual return of perfusing cardiac rhythm. patient reintubated during code, transferred to ICU, called family and updated 06/28: Patient is spiking fever, started on empiric antibiotic, ordered blood urine and sputum culture. We will reconsult ID. Discussed with patient's son in the evening. Family wants to continue full CODE STATUS. Discussed with critical care attending and RN in length. 06/29: Repeat COVID-19 test is positive. Patient remains on ventilator, continue tube feeding diet. Renal function stable, H&H stable. GI recommendation appreciated -no plan for endoscopy now as there is no active bleeding. 06/30: Renal function improving, patient remains positive for COVID. Tolerating tube feeding, wean off vent as tolerated. Patient remains with poor prognosis but 07/01: Remains intubated, continue to wean off as tolerated, continue antibiotic for Klebsiella pneumoniae. COVID-19 reordered on 06/29 and came as positive. ID following, pulmonary critical care following. Poor prognosis, family wants to continue full code. 07/05; patient has significant drop in H&H, hemoglobin today is 6.9, heme positive stool, type and cross transfuse 2 units of PRBC GI following, no plans of endoscopy 07/06; status post 2 units PRBC transfusion yesterday, Hb improved to 7.7. Monitor H&H transfuse additional PRBC as needed Remains intubated on vent, wean as tolerated and extubate 07/07; Hb dropped to 7.7-6.8, no new episodes of bleeding, transfuse additional 1 unit PRBC today Closely monitor H&H, worsening renal function, hyperkalemia, calcium chloride Kayexalate, gentle hydration, reconsult nephrology 07/08: Patient not tolerating weaning parameters, if unable to wean may need trach and PEG, patient critically ill poor prognosis 07/09; patient remains intubated, trial of CPAP, will closely monitor wean as tolerated and extubate, 07/10: Remains intubated, wean as tolerated and extubate, if unable to wean may need trach and PEG 07/11/2020. Patient currently on mechanical ventilation AC/PRVC with rate of 12, tidal volume 450, FiO2 30% and PEEP of 6 07/12/2020. Patient placed on CPAP with pressure support of 10 and tolerating well. Continue PSB trials as tolerated. 07/13/2020. Patient currently with AC mode rate 12, tidal volume 450, FiO2 30% and PEEP of 6. Surgery has been consulted for trach and PEG placement. Recall nephrology for renal insufficiency. 07/14/20; surgery evaluated for trach and PEG , pending call with test which is is positive today COVID-19 test positive x3 since admission 07/16; trach and PEG pending neuro evaluation 07/17; vent dependent, trach PEG pending neuro evaluation, pending MRI EEG study[already ordered] 07/18; unable to do MRI, due to body habitus, morbid obesity, radiology consult Patient critically ill very poor prognosis 07/19; remains intubated on vent, clinically no change 07/20; unable to wean, needs trach and PEG, need MRI , unable to do due to body habitus 07/21; clinically no change, remains intubated on ventilatory support 07/22; I recommend family meeting, to discuss the goals of treatment, discussed with case management 07/23; patient's blood pressures in the lower range, will hold antihypertensives, fluid bolus, if no improvement Levophed per protocol 07/24: Patient remains critically ill, unable to obtain MRI at this facility and unstable for transfer, Will reconsult Nephrology as creatinine now worse, with worsening Hypotension and Hyperkalemia- Overnight the patient required pressors Secondary to Hypotension, Will place PICC line. Will give kayxalate, continue to hold all BP meds. Hyponatermia improving. 07/24; patient remains to critically ill, nephrology consult appreciated, creatinine is worsening. Hypotension resolved with. Still patient is hypernatremic 07/26; patient is hypertensive and her blood pressure medications were resumed and as needed medications also started. Patient is being followed by nephrology for hyponatremia and AVANI. Patient has anemia. We will check labs in the [facility]. 07/27; patient is still intubated and on mechanical ventilation. Followed by pulmonary critical care. Nephrology is considering to dialyze the patient after discussing with the family. 07/28; patient is intubated and on mechanical ventilation, patient is nonresponsive without pressors. Creatinine is trending up and nephrology is considering to dialysis. I called her son Toño at [phone] and discussed about the prognosis of the patient and I gave the option of hospice care/withdraw care and he said he is going to talk to his sister and will get back to me. 07/29/2020;patient is intubated and on mechanical ventilation, patient is nonresponsive without pressors. Creatinine is trending up and nephrology is considering to dialysis. I called her son Toño on 07/28 at [phone] and discussed about the prognosis of the patient and I gave the option of hospice care/withdraw care and he said he is going to talk to his sister and will get back to me. Nephrology discussed with the son this morning and the son said he want aggressive management and she is going to be started on dialysis. 07/30; patient's son wants hospice. Declined dialysis. 07/31; plan was to send the patient to hospice but her son does not want to sign AND. Family declined dialysis. Going to talk to the son. 08/01; plans to send the patient to hospice. Patient does not want to sign AND. We called him back but he did not answer. 08/02 intubated, unresponsive, all interdisciplinary notes reviewed, apparently patient's family opted for dialysis, all interdisciplinary notes reviewed 08/03 remains intubated, unresponsive, status post right femoral vein vascular catheter placement, scheduled for hemodialysis today, lab results reviewed. Patient's NG tube feedings are on hold as the patient apparently developed emesis with questionable fecal odor. Patient is now on NG tube to low intermittent suction. 08/04: TF on hold. CT abdomen/pelvis yesterday showed no obstruction, cont to monitor. follow BMP, HD as needed 08/05: plan to resume TF, discussed with nephrology - plan to continue HD temporarily. cont to monitor BMP. patient remains unresponsive, family wish to continue aggressive care and full code status Subjective Date of service: 08/05/20 Principal diagnosis: Ac hypoxemic resp failure; COVID-19; pneumonia; CHF; Pulm H TN; OHS; DM II Interval history: Patient seen and examined Vitals reviewed, intubated, remains unresponsive Discussed with RN at the bedside Objective - Exam Narrative Exam: General appearance: Present: obese (Morbidly obese), other (intubated) - EENT Eyes: No congestion or icterus - Neck Neck: Present: supple, normal ROM - Respiratory Respiratory effort: normal Respiratory: bilateral: diminished, rhonchi, negative: rales, wheezing - Cardiovascular Rhythm: regular Heart Sounds: Present: S1 & S2 - Extremities Extremities: no ischemia, No edema - Abdominal General gastrointestinal: soft, non-tender, obese, normal bowel sounds - Integumentary Integumentary: Present: clear, warm - Psychiatric Psychiatric: other (intubated) - Neurologic Neurologic: other (intubated), unresponsive - Constitutional Vitals: Vital Signs - 12hr 08/05/20 08/05/20 08/05/20 05:46 06:00 06:15 Temperature Pulse Rate 59 L 61 75 Pulse Rate [ From Monitor] Respiratory 18 19 18 Rate Blood Pressure 131/41 135/65 148/54 O2 Sat by Pulse 98 98 97 Oximetry O2 Sat by Pulse Oximetry [ Anterior Bilateral Throughout] 08/05/20 08/05/20 08/05/20 06:30 06:45 07:00 Temperature Pulse Rate 76 74 61 Pulse Rate [ From Monitor] Respiratory 17 18 18 Rate Blood Pressure 149/57 146/44 148/54 O2 Sat by Pulse 98 98 99 Oximetry O2 Sat by Pulse Oximetry [ Anterior Bilateral Throughout] 08/05/20 08/05/20 08/05/20 07:20 07:30 07:45 Temperature Pulse Rate 62 63 61 Pulse Rate [ From Monitor] Respiratory 17 18 16 Rate Blood Pressure 133/49 137/53 O2 Sat by Pulse 99 98 99 Oximetry O2 Sat by Pulse Oximetry [ Anterior Bilateral Throughout] 08/05/20 08/05/20 08/05/20 08:00 08:15 08:30 Temperature 98.0 F 98.0 F Pulse Rate 63 61 76 Pulse Rate [ 60 From Monitor] Respiratory 18 17 14 Rate Blood Pressure 130/50 136/49 145/55 O2 Sat by Pulse 99 99 98 Oximetry O2 Sat by Pulse 98 Oximetry [ Anterior Bilateral Throughout] 08/05/20 08/05/20 08/05/20 08:35 08:45 09:00 Temperature Pulse Rate 82 64 62 Pulse Rate [ From Monitor] Respiratory 21 17 Rate Blood Pressure 135/54 137/48 135/54 O2 Sat by Pulse 98 98 98 Oximetry O2 Sat by Pulse Oximetry [ Anterior Bilateral Throughout] 08/05/20 08/05/20 08/05/20 09:15 09:30 09:45 Temperature Pulse Rate 78 77 78 Pulse Rate [ From Monitor] Respiratory 19 15 15 Rate Blood Pressure 136/57 133/54 145/55 O2 Sat by Pulse 98 97 97 Oximetry O2 Sat by Pulse Oximetry [ Anterior Bilateral Throughout] 08/05/20 08/05/20 08/05/20 10:00 10:01 10:15 Temperature Pulse Rate 79 80 80 Pulse Rate [ From Monitor] Respiratory 18 17 Rate Blood Pressure 136/52 136/52 143/58 O2 Sat by Pulse 98 98 Oximetry O2 Sat by Pulse Oximetry [ Anterior Bilateral Throughout] 08/05/20 08/05/20 08/05/20 10:30 10:40 10:45 Temperature Pulse Rate 61 79 80 Pulse Rate [ From Monitor] Respiratory 17 14 Rate Blood Pressure 143/56 143/56 128/40 O2 Sat by Pulse 98 98 Oximetry O2 Sat by Pulse Oximetry [ Anterior Bilateral Throughout] 08/05/20 08/05/20 08/05/20 10:50 10:55 11:00 Temperature Pulse Rate 83 80 63 Pulse Rate [ From Monitor] Respiratory 17 15 Rate Blood Pressure 128/40 146/55 124/44 O2 Sat by Pulse 98 98 Oximetry O2 Sat by Pulse Oximetry [ Anterior Bilateral Throughout] 08/05/20 08/05/20 08/05/20 11:01 11:10 11:14 Temperature 98.0 F Pulse Rate 61 74 82 Pulse Rate [ From Monitor] Respiratory 11 L 18 Rate Blood Pressure 124/44 124/44 124/44 O2 Sat by Pulse 97 98 Oximetry O2 Sat by Pulse Oximetry [ Anterior Bilateral Throughout] 08/05/20 08/05/20 08/05/20 11:15 11:16 11:30 Temperature 97.5 F L Pulse Rate 81 81 81 Pulse Rate [ From Monitor] Respiratory 15 16 Rate Blood Pressure 153/62 153/62 150/61 O2 Sat by Pulse 99 98 Oximetry O2 Sat by Pulse Oximetry [ Anterior Bilateral Throughout] 08/05/20 08/05/20 08/05/20 11:45 11:59 12:00 Temperature 97.4 F L 97.4 F L 97.4 F L Pulse Rate 82 83 81 Pulse Rate [ 80 From Monitor] Respiratory 17 18 14 Rate Blood Pressure 149/63 146/56 146/56 O2 Sat by Pulse 97 98 98 Oximetry O2 Sat by Pulse Oximetry [ Anterior Bilateral Throughout] 08/05/20 08/05/20 08/05/20 12:12 12:15 12:30 Temperature 98.5 F Pulse Rate 82 82 81 Pulse Rate [ From Monitor] Respiratory 17 14 18 Rate Blood Pressure 146/56 150/54 140/49 O2 Sat by Pulse 97 98 Oximetry O2 Sat by Pulse 98 Oximetry [ Anterior Bilateral Throughout] 08/05/20 08/05/20 08/05/20 12:40 12:45 13:00 Temperature Pulse Rate 81 80 81 Pulse Rate [ From Monitor] Respiratory 16 17 Rate Blood Pressure 135/57 145/52 135/57 O2 Sat by Pulse 97 98 98 Oximetry O2 Sat by Pulse Oximetry [ Anterior Bilateral Throughout] 08/05/20 08/05/20 08/05/20 13:15 13:30 13:46 Temperature Pulse Rate 82 80 81 Pulse Rate [ From Monitor] Respiratory 16 17 16 Rate Blood Pressure 142/55 138/59 163/66 O2 Sat by Pulse 97 97 98 Oximetry O2 Sat by Pulse Oximetry [ Anterior Bilateral Throughout] 08/05/20 08/05/20 08/05/20 14:00 14:15 14:30 Temperature Pulse Rate 79 60 62 Pulse Rate [ From Monitor] Respiratory 16 14 17 Rate Blood Pressure 146/45 125/55 130/53 O2 Sat by Pulse 99 99 99 Oximetry O2 Sat by Pulse Oximetry [ Anterior Bilateral Throughout] 08/05/20 08/05/20 08/05/20 14:45 15:00 15:15 Temperature Pulse Rate 80 82 80 Pulse Rate [ From Monitor] Respiratory 18 17 17 Rate Blood Pressure 139/60 134/53 135/56 O2 Sat by Pulse 97 97 98 Oximetry O2 Sat by Pulse Oximetry [ Anterior Bilateral Throughout] 08/05/20 08/05/20 08/05/20 15:30 15:45 16:00 Temperature 97.6 F Pulse Rate 63 79 82 Pulse Rate [ 79 From Monitor] Respiratory 16 16 17 Rate Blood Pressure 130/56 145/58 130/56 O2 Sat by Pulse 99 98 97 Oximetry O2 Sat by Pulse Oximetry [ Anterior Bilateral Throughout] 08/05/20 08/05/20 08/05/20 16:15 16:30 16:45 Temperature Pulse Rate 80 65 80 Pulse Rate [ From Monitor] Respiratory 19 14 Rate Blood Pressure 133/51 136/48 141/55 O2 Sat by Pulse 98 98 98 Oximetry O2 Sat by Pulse Oximetry [ Anterior Bilateral Throughout] 08/05/20 17:00 Temperature Pulse Rate 61 Pulse Rate [ From Monitor] Respiratory 10 L Rate Blood Pressure 130/43 O2 Sat by Pulse 96 Oximetry O2 Sat by Pulse Oximetry [ Anterior Bilateral Throughout] - Labs CBC & Chem 7: 08/07/20 04:40 08/07/20 06:00 Labs: Abnormal lab results 08/04/20 08/04/20 08/05/20 Range/Units 01:41 17:42 00:25 RBC 2.20 L (3.65-5.03) M/mm3 Hgb 6.5 L (10.1-14.3) gm/dl Hct 19.5 L* (30.3-42.9) % RDW 18.5 H (13.2-15.2) % Lymph % (Auto) 9.2 L (13.4-35.0) % [place] % (Auto) 9.8 H (0.0-7.3) % Lymph # (Auto) 0.8 L (1.2-5.4) K/mm3 Seg Neutrophils % 77.7 H (40.0-70.0) % Sodium (137-145) mmol/L Chloride (98-107) mmol/L BUN (7-17) mg/dL Creatinine (0.6-1.2) mg/dL Glucose (65-100) mg/dL POC Glucose 113 H 119 H (70-105) mg/dL Calcium (8.4-10.2) mg/dL AST (5-40) units/L Alkaline Phosphatase (35-129) units/L Total Protein (6.3-8.2) g/dL Albumin (3.9-5) g/dL Crossmatch 08/05/20 08/05/20 08/05/20 Range/Units 05:24 05:35 05:35 RBC 2.13 L (3.65-5.03) M/mm3 Hgb 6.2 L (10.1-14.3) gm/dl Hct 18.9 L* (30.3-42.9) % RDW 18.7 H (13.2-15.2) % Lymph % (Auto) 10.0 L (13.4-35.0) % [place] % (Auto) 8.5 H (0.0-7.3) % Lymph # (Auto) 0.8 L (1.2-5.4) K/mm3 Seg Neutrophils % 78.1 H (40.0-70.0) % Sodium 135 L (137-145) mmol/L Chloride 96.3 L (98-107) mmol/L BUN 89 H (7-17) mg/dL Creatinine 2.8 H (0.6-1.2) mg/dL Glucose 116 H (65-100) mg/dL POC Glucose 138 H (70-105) mg/dL Calcium 7.5 L (8.4-10.2) mg/dL AST 53 H (5-40) units/L Alkaline Phosphatase 501 H (35-129) units/L Total Protein 6.1 L (6.3-8.2) g/dL Albumin 2.2 L (3.9-5) g/dL Crossmatch 08/05/20 08/05/20 Range/Units 09:15 12:17 RBC (3.65-5.03) M/mm3 Hgb (10.1-14.3) gm/dl Hct (30.3-42.9) % RDW (13.2-15.2) % Lymph % (Auto) (13.4-35.0) % [place] % (Auto) (0.0-7.3) % Lymph # (Auto) (1.2-5.4) K/mm3 Seg Neutrophils % (40.0-70.0) % Sodium (137-145) mmol/L Chloride (98-107) mmol/L BUN (7-17) mg/dL Creatinine (0.6-1.2) mg/dL Glucose (65-100) mg/dL POC Glucose 126 H (70-105) mg/dL Calcium (8.4-10.2) mg/dL AST (5-40) units/L Alkaline Phosphatase (35-129) units/L Total Protein (6.3-8.2) g/dL Albumin (3.9-5) g/dL Crossmatch See Detail HEART Score - HEART Score Troponin: Troponin T 0.067 ng/mL (0.00-0.029) H 07/01/20 06:01
[2020-08-05] MEDS: INSULIN GLARGINE 100 UNITS/ML SUB-Q SCH (21:21)
[2020-08-06] MEDS: D5W/0.45% NACL 1,000 ML IV SCH (04:40)
[2020-08-06 05:57] LABS: Basophils # (Auto) 0.1 K/mm3 (0.0-0.1); Eosinophils # (Auto) 0.2 K/mm3 (0.0-0.4); Eosinophils % (Auto) 3.5 % (0.0-4.3); Hematocrit 21.7 % (30.3-42.9); Hemoglobin 7.2 gm/dl (10.1-14.3); Lymphocytes # (Auto) 0.7 K/mm3 (1.2-5.4); Lymphocytes % (Auto) 9.9 % (13.4-35.0); Mean Corpuscular HGB Conc 33 % (30-34); Mean Corpuscular Volume 89 fl (79-97); Monocytes # (Auto) 0.8 K/mm3 (0.0-0.8); Monocytes % (Auto) 10.5 % (0.0-7.3); Platelet Count 379 K/mm3 (140-440); Red Blood Count 2.43 M/mm3 (3.65-5.03); Red Cell Distribution Width 18.1 % (13.2-15.2)
[2020-08-06] MEDS: SODIUM CHLORIDE 0.9% IV SCH ×3 (06:38→22:32)
[2020-08-06] MEDS: HEPARIN 5,000 UNIT/1 ML VIAL SUB-Q SCH ×3 (06:38→22:30)
[2020-08-06] MEDS: PHENYTOIN IV SCH ×3 (06:38→22:32)
[2020-08-06] MEDS: INSULIN LISPRO 100 UNIT/ML VIAL 3 mL SUB-Q SCH ×4 (06:50→17:37)
[2020-08-06] MEDS: hydrALAZINE 100 MG TAB PO SCH ×3 (08:28→22:45)
[2020-08-06] MEDS: GLYCOPYRROLATE 2 MG TAB PO SCH ×3 (08:39→22:29)
[2020-08-06] MEDS: levETIRAcetam 1,000 MG in DEXTROSE 5% IN WATER 100 ML IV SCH ×2 (10:25→22:31)
[2020-08-06] MEDS: amLODIPine 10 MG TAB PO SCH (10:28)
[2020-08-06] MEDS: MINOXIDIL 2.5 MG TAB PO SCH ×2 (10:29→22:30)
[2020-08-06] MEDS: SENNOSIDES ORAL LIQD 8.8 MG/5 ML ORAL LIQD FEEDTUBE SCH ×2 (10:30→22:47)
[2020-08-06] MEDS: PANTOPRAZOLE 40 MG INJ IV SCH (10:40)
--- NOTE | 2020-08-06 15:05 | Progress Note ---
Assessment and Plan Cardiopulmonary arrest 06/26/2020 with ROSC Acute hypoxemic respiratory failure , extubated now re-intubated Anemia s/p PRBC Severe COVID infection Multifocal pneumonia Morbid obesity Acute toxic metabolic encephalopathy AVANI secondary to COVID/vasomotor nephropathy Bilateral pulmonary edema. Bilateral pleural effusions. History of congestive heart failure. History of pulmonary hypertension. History of hypertension. Diabetes. Obesity hypoventilation syndrome. Oropharyngeal dysphagia Non convulsive status -Transfuse 1 unit PRBC for HgB <7g/dL -Continue AEDs per Neurology -CXR, ABG as clinically indicated -Continue to trend temperature curve and WCC -Continue daily SBTs as tolerated, her mental status precludes liberation from MVS -Continue to avoid nephrotoxins, closely monitor renal function, dose all medications for renal function -COVID positive, trach /PEG on hold -Supportive FISH PROCESSOR per Renal service, has a right femoral trialysis catheter - VAP bundle addressed -Aspiration precautions, HOB >40 -lung protective strategies-ARDS. net - continue bronchodilators with pulmonary hygiene per RT - wean per pulmonary driven protocols otherwise - continue to avoid benzodiazepines, reduce the possibility of delirium - prn analgesia per CPOT score - Continue to wean supplemental oxygen for target O2 sats > 92% -Continue to hold sedation, if needed intermittent dosing - conservative fluid management measures as tolerated by hemodynamics and renal function - Bronchodilators with pulmonary hygiene per RT - Accuchecks with glycemic control per SSI (While critically ill target blood glucose of 140-180 mg/dL; avoid hypoglycemia) - Maintenance of sleep-wake cycle, avoid delirium - Aspiration precautions, HOB >40 - Stress ulcer prophylaxis -Famotidine - Mobility protocol, off loading and skin assessment for pressure ulcer prevention COVID SPECIFIC INTERVENTIONS -Airborne, contact isolation for COVID per facility protocols - s/p Remdesivir -IV steroids-Dexamethasone -Trend d-dimer,and other inflammatory markers per facility protocol -Convalescent plasma therapy per facility protocol -Continue all supportive care Discussed with the ICU team-RT,RN, Clincal pharmacist and case management Life threatening condition- Cardiopulmonary arrest with ROSC, Sepsis ;COVID 19 acute hypoxemic respiratory failure on MVS Mortality/Morbidity- High Complexity of medical decision making- High CONDITION: CRITICAL PROGNOSIS: GUARDED-POOR CODE STATUS: FULL CODE The high probability of a clinically significant, sudden or life-threatening deterioration of the [respiratory & neurology, renal ] system(s) required my full and direct attention, intervention and personal management. The aggregate critical care time was [32] minutes without overlap. Time includes spent on; [x] Data Review and interpretation [x] Patient assessment and monitoring of vital signs [x] Documentation [x] Medication orders and management Subjective Date of service: 08/06/20 Principal diagnosis: Ac hypoxemic resp failure; COVID-19; pneumonia; CHF; Pulm HTN; OHS; DM II Interval history: Patient is seen today for: Ac hypoxemic resp failure s/p Cardiopulmonary arrest with ROSC; Coronavirus-19 infection; pneumonia; Pulmonary edema; Bilateral pleural effusions; CHF; Morbid obesity; pulmonary hypertension; OHS; DM II Seen and examined at bedside; 24hour events reviewed; nursing and respiratory care staff consulted; Vitals, labs,medications, chart reviewed. Remains on MVS, no fevers, Mental status changes persist, but grimaces to pain Tolerating tube feedings, s/p HD yesterday, not on any drips. Right femoral trialysis catheter Objective Vital Signs - 12hr 08/06/20 08/06/20 08/06/20 03:15 03:30 03:35 Temperature Pulse Rate 66 61 62 Pulse Rate [ From Monitor] Respiratory 18 17 Rate Blood Pressure 113/47 118/45 124/44 O2 Sat by Pulse 97 98 98 Oximetry 08/06/20 08/06/20 08/06/20 03:45 04:00 04:15 Temperature 98.3 F Pulse Rate 61 81 61 Pulse Rate [ 63 From Monitor] Respiratory 16 16 15 Rate Blood Pressure 126/49 126/49 124/44 O2 Sat by Pulse 98 97 98 Oximetry 08/06/20 08/06/20 08/06/20 04:30 04:46 05:00 Temperature Pulse Rate 80 61 63 Pulse Rate [ From Monitor] Respiratory 15 16 15 Rate Blood Pressure 133/53 125/39 O2 Sat by Pulse 96 98 97 Oximetry 08/06/20 08/06/20 08/06/20 05:16 05:30 05:45 Temperature Pulse Rate 61 62 64 Pulse Rate [ From Monitor] Respiratory 17 15 17 Rate Blood Pressure 116/39 118/38 120/41 O2 Sat by Pulse 97 97 98 Oximetry 08/06/20 08/06/20 08/06/20 06:00 06:16 06:30 Temperature Pulse Rate 62 62 63 Pulse Rate [ From Monitor] Respiratory 16 17 17 Rate Blood Pressure 120/42 124/46 129/46 O2 Sat by Pulse 98 97 98 Oximetry 08/06/20 08/06/20 08/06/20 06:45 07:00 07:16 Temperature Pulse Rate 65 60 62 Pulse Rate [ From Monitor] Respiratory 12 15 15 Rate Blood Pressure 116/44 125/42 122/40 O2 Sat by Pulse 97 98 98 Oximetry 08/06/20 08/06/20 08/06/20 07:25 07:30 07:46 Temperature Pulse Rate 66 64 62 Pulse Rate [ From Monitor] Respiratory 16 14 Rate Blood Pressure 123/43 127/43 O2 Sat by Pulse 96 97 98 Oximetry 08/06/20 08/06/20 08/06/20 08:00 08:15 08:30 Temperature Pulse Rate 62 62 64 Pulse Rate [ From Monitor] Respiratory 16 15 16 Rate Blood Pressure 116/40 123/43 128/46 O2 Sat by Pulse 98 97 97 Oximetry 08/06/20 08/06/20 08/06/20 08:45 09:00 09:15 Temperature Pulse Rate 63 63 63 Pulse Rate [ From Monitor] Respiratory 16 15 17 Rate Blood Pressure 118/45 118/45 124/49 O2 Sat by Pulse 98 98 97 Oximetry 08/06/20 08/06/20 08/06/20 09:30 09:45 10:00 Temperature Pulse Rate 64 63 63 Pulse Rate [ From Monitor] Respiratory 16 18 15 Rate Blood Pressure 128/42 121/41 128/44 O2 Sat by Pulse 97 97 97 Oximetry 08/06/20 08/06/20 08/06/20 10:15 10:30 10:45 Temperature Pulse Rate 64 64 70 Pulse Rate [ From Monitor] Respiratory 15 17 13 Rate Blood Pressure 125/42 124/41 137/89 O2 Sat by Pulse 97 97 98 Oximetry 08/06/20 08/06/20 08/06/20 10:48 11:00 11:15 Temperature Pulse Rate 70 65 65 Pulse Rate [ From Monitor] Respiratory 17 19 Rate Blood Pressure 142/59 154/55 O2 Sat by Pulse 96 97 98 Oximetry 08/06/20 08/06/20 08/06/20 11:30 11:45 12:00 Temperature Pulse Rate 66 67 66 Pulse Rate [ From Monitor] Respiratory 17 18 18 Rate Blood Pressure 138/46 142/41 140/51 O2 Sat by Pulse 99 99 98 Oximetry 08/06/20 08/06/20 08/06/20 12:15 12:30 12:45 Temperature Pulse Rate 66 67 85 Pulse Rate [ From Monitor] Respiratory 18 19 18 Rate Blood Pressure 133/60 135/56 141/60 O2 Sat by Pulse 98 99 97 Oximetry 08/06/20 08/06/20 13:00 14:43 Temperature Pulse Rate 67 Pulse Rate [ From Monitor] Respiratory 19 Rate Blood Pressure 136/46 O2 Sat by Pulse 98 95 Oximetry Constitutional: appears uncomfortable, other (elderly looking female with mildly increased resp effort at rest) Eyes: non-icteric ENT: oropharynx dry, other (ETT 23-24 cm AYAN) Neck: supple, no lymphadenopathy, no JVD Effort: mildly labored Ascultation: Bilateral: clear, diminished breath sounds, rales, rhonchi Percussion: Bilateral: not dull Cardiovascular: regular rate and rhythm, other (S1,S2) Gastrointestinal: normoactive bowel sounds, soft, non-tender, non-distended Integumentary: rash, other (Right femoral trialysis catheter) Extremities: no cyanosis, pink and warm, pulses normal, no ischemia or petechiae, edema (pedal and peripheral ), anasarca Neurologic: unable to assess, other (lethargic to obtunded) Psychiatric: other (unable to assess re: AMS) CBC and BMP: 08/08/20 15:00 08/09/20 05:05 ABG, PT/INR, D-dimer: ABG ABG pH 7.344 pH Units (7.350-7.450) L 08/02/20 11:25 POC ABG pCO2 44.1 mmHg (32.0-48.0) 07/18/20 04:24 ABG pCO2 39.0 mm Hg 08/02/20 11:25 POC ABG pO2 86.8 mmHg (83-108) 07/18/20 04:24 ABG pO2 101.1 mm Hg (80.0-90.0) H 08/02/20 11:25 POC ABG HCO3 25.6 07/18/20 04:24 ABG O2 Saturation 97.5 % (95.0-99.0) 08/02/20 11:25 PT/INR, D-dimer PT 14.2 Sec. (12.2-14.9) 05/29/20 15:10 INR 1.08 (0.87-1.13) 05/29/20 15:10 D-Dimer 2310.15 ng/mlDDU (0-234) H 06/29/20 14:45 Abnormal lab findings: Abnormal Labs 05/28/20 05/28/20 05/28/20 13:29 13:47 13:47 WBC RBC Hgb Hct MCHC RDW 15.3 H Lymph % (Auto) [place] % (Auto) Eos % (Auto) Lymph # [place] # Lymph # (Auto) [place] # (Auto) Eos # (Auto) Seg Neutrophils % Seg Neuts % (Manual) Lymphocytes % (Manual) Seg Neutrophils # Seg Neutrophils # Man Lymphocytes # (Manual) Monocytes % (Manual) Eosinophils % (Manual) Monocytes # (Manual) Eosinophils # (Manual) D-Dimer Heparin Anti-Xa Level ABG pH POC ABG pCO2 POC ABG pO2 ABG pO2 ABG HCO3 ABG O2 Saturation ABG Base Excess ABG Hemoglobin ABG Oxyhemoglobin VBG pH ABG Sodium ABG Potassium ABG Glucose Oxyhemoglobin Sodium Potassium 6.6 H* Chloride 109.2 H Carbon Dioxide 17 L BUN 29 H Creatinine 1.3 H Glucose 265 H POC Glucose 248 H Lactic Acid Calcium 8.1 L Ferritin AST 63 H Alkaline Phosphatase Magnesium Lactate Dehydrogenase Total Creatine Kinase 301 H CK-MB (CK-2) 4.3 H C-Reactive Protein Total Protein 5.4 L Albumin 2.6 L Troponin T HDL Cholesterol Arterial Blood Glucose Urine WBC (Auto) Urine Creatinine Urine Total Protein Phenytoin Coronavirus (PCR) Crossmatch 05/28/20 05/28/20 05/28/20 13:47 13:47 14:46 WBC RBC Hgb Hct MCHC RDW Lymph % (Auto) [place] % (Auto) Eos % (Auto) Lymph # [place] # Lymph # (Auto) [place] # (Auto) Eos # (Auto) Seg Neutrophils % Seg Neuts % (Manual) Lymphocytes % (Manual) Seg Neutrophils # Seg Neutrophils # Man Lymphocytes # (Manual) Monocytes % (Manual) Eosinophils % (Manual) Monocytes # (Manual) Eosinophils # (Manual) D-Dimer Heparin Anti-Xa Level ABG pH POC ABG pCO2 POC ABG pO2 ABG pO2 ABG HCO3 ABG O2 Saturation ABG Base Excess ABG Hemoglobin ABG Oxyhemoglobin VBG pH 7.152 L* ABG Sodium ABG Potassium ABG Glucose Oxyhemoglobin Sodium Potassium 7.2 H* Chloride Carbon Dioxide BUN Creatinine Glucose POC Glucose Lactic Acid 3.40 H* Calcium Ferritin AST Alkaline Phosphatase Magnesium Lactate Dehydrogenase Total Creatine Kinase CK-MB (CK-2) C-Reactive Protein Total Protein Albumin Troponin T HDL Cholesterol Arterial Blood Glucose Urine WBC (Auto) Urine Creatinine Urine Total Protein Phenytoin Coronavirus (PCR) Crossmatch 05/28/20 05/28/20 05/28/20 15:33 15:33 15:51 WBC RBC Hgb Hct MCHC RDW Lymph % (Auto) [place] % (Auto) Eos % (Auto) Lymph # [place] # Lymph # (Auto) [place] # (Auto) Eos # (Auto) Seg Neutrophils % Seg Neuts % (Manual) Lymphocytes % (Manual) Seg Neutrophils # Seg Neutrophils # Man Lymphocytes # (Manual) Monocytes % (Manual) Eosinophils % (Manual) Monocytes # (Manual) Eosinophils # (Manual) D-Dimer 8780.43 H Heparin Anti-Xa Level ABG pH 7.284 L POC ABG pCO2 POC ABG pO2 ABG pO2 273.0 H ABG HCO3 ABG O2 Saturation 99.4 H ABG Base Excess -6.1 L ABG Hemoglobin 17.2 H ABG Oxyhemoglobin VBG pH ABG Sodium ABG Potassium ABG Glucose Oxyhemoglobin Sodium Potassium Chloride Carbon Dioxide BUN Creatinine Glucose 152 H POC Glucose Lactic Acid Calcium Ferritin AST Alkaline Phosphatase Magnesium Lactate Dehydrogenase 365 H Total Creatine Kinase CK-MB (CK-2) C-Reactive Protein Total Protein Albumin Troponin T HDL Cholesterol Arterial Blood Glucose Urine WBC (Auto) Urine Creatinine Urine Total Protein Phenytoin Coronavirus (PCR) Crossmatch 05/28/20 05/28/20 05/28/20 16:30 20:41 23:20 WBC RBC Hgb Hct MCHC RDW Lymph % (Auto) [place] % (Auto) Eos % (Auto) Lymph # [place] # Lymph # (Auto) [place] # (Auto) Eos # (Auto) Seg Neutrophils % Seg Neuts % (Manual) Lymphocytes % (Manual) Seg Neutrophils # Seg Neutrophils # Man Lymphocytes # (Manual) Monocytes % (Manual) Eosinophils % (Manual) Monocytes # (Manual) Eosinophils # (Manual) D-Dimer Heparin Anti-Xa Level ABG pH POC ABG pCO2 POC ABG pO2 ABG pO2 ABG HCO3 ABG O2 Saturation ABG Base Excess ABG Hemoglobin ABG Oxyhemoglobin VBG pH ABG Sodium ABG Potassium ABG Glucose Oxyhemoglobin Sodium Potassium Chloride Carbon Dioxide BUN Creatinine Glucose POC Glucose 225 H 224 H Lactic Acid Calcium Ferritin AST Alkaline Phosphatase Magnesium Lactate Dehydrogenase Total Creatine Kinase CK-MB (CK-2) C-Reactive Protein Total Protein Albumin Troponin T HDL Cholesterol Arterial Blood Glucose Urine WBC (Auto) 17.0 H Urine Creatinine Urine Total Protein Phenytoin Coronavirus (PCR) Crossmatch 05/28/20 05/29/20 05/29/20 Unknown 04:35 04:43 WBC RBC 3.48 L Hgb 9.8 L Hct 29.4 L MCHC RDW 16.0 H Lymph % (Auto) 7.4 L [place] % (Auto) Eos % (Auto) Lymph # 0.7 L [place] # Lymph # (Auto) [place] # (Auto) Eos # (Auto) Seg Neutrophils % 89.1 H Seg Neuts % (Manual) Lymphocytes % (Manual) Seg Neutrophils # 8.1 H Seg Neutrophils # Man Lymphocytes # (Manual) Monocytes % (Manual) Eosinophils % (Manual) Monocytes # (Manual) Eosinophils # (Manual) D-Dimer Heparin Anti-Xa Level ABG pH POC ABG pCO2 POC ABG pO2 ABG pO2 ABG HCO3 19.3 L ABG O2 Saturation ABG Base Excess -4.5 L ABG Hemoglobin 9.7 L ABG Oxyhemoglobin VBG pH ABG Sodium ABG Potassium ABG Glucose Oxyhemoglobin Sodium Potassium Chloride Carbon Dioxide BUN Creatinine Glucose POC Glucose Lactic Acid Calcium Ferritin AST Alkaline Phosphatase Magnesium Lactate Dehydrogenase Total Creatine Kinase CK-MB (CK-2) C-Reactive Protein Total Protein Albumin Troponin T HDL Cholesterol Arterial Blood Glucose Urine WBC (Auto) Urine Creatinine Urine Total Protein Phenytoin Coronavirus (PCR) Positive A Crossmatch 05/29/20 05/29/20 05/29/20 04:43 15:10 17:17 WBC RBC Hgb 9.3 L Hct 28.7 L MCHC RDW Lymph % (Auto) [place] % (Auto) Eos % (Auto) Lymph # [place] # Lymph # (Auto) [place] # (Auto) Eos # (Auto) Seg Neutrophils % Seg Neuts % (Manual) Lymphocytes % (Manual) Seg Neutrophils # Seg Neutrophils # Man Lymphocytes # (Manual) Monocytes % (Manual) Eosinophils % (Manual) Monocytes # (Manual) Eosinophils # (Manual) D-Dimer Heparin Anti-Xa Level ABG pH POC ABG pCO2 POC ABG pO2 ABG pO2 ABG HCO3 ABG O2 Saturation ABG Base Excess ABG Hemoglobin ABG Oxyhemoglobin VBG pH ABG Sodium ABG Potassium ABG Glucose Oxyhemoglobin Sodium Potassium Chloride 110.2 H Carbon Dioxide 18 L BUN 32 H Creatinine 1.4 H Glucose 180 H POC Glucose 147 H Lactic Acid Calcium Ferritin AST Alkaline Phosphatase Magnesium Lactate Dehydrogenase Total Creatine Kinase CK-MB (CK-2) C-Reactive Protein Total Protein Albumin Troponin T HDL Cholesterol Arterial Blood Glucose Urine WBC (Auto) Urine Creatinine Urine Total Protein Phenytoin Coronavirus (PCR) Crossmatch 05/30/20 05/30/20 05/30/20 00:08 00:12 04:15 WBC RBC Hgb Hct MCHC RDW Lymph % (Auto) [place] % (Auto) Eos % (Auto) Lymph # [place] # Lymph # (Auto) [place] # (Auto) Eos # (Auto) Seg Neutrophils % Seg Neuts % (Manual) Lymphocytes % (Manual) Seg Neutrophils # Seg Neutrophils # Man Lymphocytes # (Manual) Monocytes % (Manual) Eosinophils % (Manual) Monocytes # (Manual) Eosinophils # (Manual) D-Dimer Heparin Anti-Xa Level 0.71 H ABG pH 7.460 H POC ABG pCO2 POC ABG pO2 ABG pO2 106.0 H ABG HCO3 18.9 L ABG O2 Saturation ABG Base Excess -4.4 L ABG Hemoglobin 6.8 L ABG Oxyhemoglobin VBG pH ABG Sodium ABG Potassium ABG Glucose Oxyhemoglobin Sodium Potassium Chloride Carbon Dioxide BUN Creatinine Glucose POC Glucose 195 H Lactic Acid Calcium Ferritin AST Alkaline Phosphatase Magnesium Lactate Dehydrogenase Total Creatine Kinase CK-MB (CK-2) C-Reactive Protein Total Protein Albumin Troponin T HDL Cholesterol Arterial Blood Glucose Urine WBC (Auto) Urine Creatinine Urine Total Protein Phenytoin Coronavirus (PCR) Crossmatch 05/30/20 05/30/20 05/30/20 06:07 08:37 12:33 WBC RBC Hgb Hct MCHC RDW Lymph % (Auto) [place] % (Auto) Eos % (Auto) Lymph # [place] # Lymph # (Auto) [place] # (Auto) Eos # (Auto) Seg Neutrophils % Seg Neuts % (Manual) Lymphocytes % (Manual) Seg Neutrophils # Seg Neutrophils # Man Lymphocytes # (Manual) Monocytes % (Manual) Eosinophils % (Manual) Monocytes # (Manual) Eosinophils # (Manual) D-Dimer Heparin Anti-Xa Level 0.85 H ABG pH POC ABG pCO2 POC ABG pO2 ABG pO2 ABG HCO3 ABG O2 Saturation ABG Base Excess ABG Hemoglobin ABG Oxyhemoglobin VBG pH ABG Sodium ABG Potassium ABG Glucose Oxyhemoglobin Sodium Potassium Chloride Carbon Dioxide BUN Creatinine Glucose POC Glucose 182 H 187 H Lactic Acid Calcium Ferritin AST Alkaline Phosphatase Magnesium Lactate Dehydrogenase Total Creatine Kinase CK-MB (CK-2) C-Reactive Protein Total Protein Albumin Troponin T HDL Cholesterol Arterial Blood Glucose Urine WBC (Auto) Urine Creatinine Urine Total Protein Phenytoin Coronavirus (PCR) Crossmatch 05/30/20 05/30/20 05/30/20 15:58 17:57 23:36 WBC RBC Hgb Hct MCHC RDW Lymph % (Auto) [place] % (Auto) Eos % (Auto) Lymph # [place] # Lymph # (Auto) [place] # (Auto) Eos # (Auto) Seg Neutrophils % Seg Neuts % (Manual) Lymphocytes % (Manual) Seg Neutrophils # Seg Neutrophils # Man Lymphocytes # (Manual) Monocytes % (Manual) Eosinophils % (Manual) Monocytes # (Manual) Eosinophils # (Manual) D-Dimer Heparin Anti-Xa Level 1.03 H ABG pH POC ABG pCO2 POC ABG pO2 ABG pO2 ABG HCO3 ABG O2 Saturation ABG Base Excess ABG Hemoglobin ABG Oxyhemoglobin VBG pH ABG Sodium ABG Potassium ABG Glucose Oxyhemoglobin Sodium Potassium Chloride Carbon Dioxide BUN Creatinine Glucose POC Glucose 208 H 185 H Lactic Acid Calcium Ferritin AST Alkaline Phosphatase Magnesium Lactate Dehydrogenase Total Creatine Kinase CK-MB (CK-2) C-Reactive Protein Total Protein Albumin Troponin T HDL Cholesterol Arterial Blood Glucose Urine WBC (Auto) Urine Creatinine Urine Total Protein Phenytoin Coronavirus (PCR) Crossmatch 05/31/20 05/31/20 05/31/20 02:16 03:55 06:16 WBC RBC Hgb 9.2 L Hct 27.5 L MCHC RDW Lymph % (Auto) [place] % (Auto) Eos % (Auto) Lymph # [place] # Lymph # (Auto) [place] # (Auto) Eos # (Auto) Seg Neutrophils % Seg Neuts % (Manual) Lymphocytes % (Manual) Seg Neutrophils # Seg Neutrophils # Man Lymphocytes # (Manual) Monocytes % (Manual) Eosinophils % (Manual) Monocytes # (Manual) Eosinophils # (Manual) D-Dimer Heparin Anti-Xa Level ABG pH POC ABG pCO2 POC ABG pO2 ABG pO2 94.7 H ABG HCO3 18.6 L ABG O2 Saturation ABG Base Excess -5.5 L ABG Hemoglobin 7.9 L ABG Oxyhemoglobin VBG pH ABG Sodium ABG Potassium ABG Glucose Oxyhemoglobin Sodium Potassium Chloride Carbon Dioxide BUN Creatinine Glucose POC Glucose 160 H Lactic Acid Calcium Ferritin AST Alkaline Phosphatase Magnesium Lactate Dehydrogenase Total Creatine Kinase CK-MB (CK-2) C-Reactive Protein Total Protein Albumin Troponin T HDL Cholesterol Arterial Blood Glucose Urine WBC (Auto) Urine Creatinine Urine Total Protein Phenytoin Coronavirus (PCR) Crossmatch 05/31/20 05/31/20 05/31/20 12:20 13:03 18:13 WBC RBC Hgb Hct MCHC RDW Lymph % (Auto) [place] % (Auto) Eos % (Auto) Lymph # [place] # Lymph # (Auto) [place] # (Auto) Eos # (Auto) Seg Neutrophils % Seg Neuts % (Manual) Lymphocytes % (Manual) Seg Neutrophils # Seg Neutrophils # Man Lymphocytes # (Manual) Monocytes % (Manual) Eosinophils % (Manual) Monocytes # (Manual) Eosinophils # (Manual) D-Dimer Heparin Anti-Xa Level ABG pH POC ABG pCO2 POC ABG pO2 ABG pO2 ABG HCO3 ABG O2 Saturation ABG Base Excess ABG Hemoglobin ABG Oxyhemoglobin VBG pH ABG Sodium ABG Potassium ABG Glucose Oxyhemoglobin Sodium Potassium Chloride Carbon Dioxide 18 L BUN 48 H Creatinine 1.6 H Glucose 115 H POC Glucose 128 H 159 H Lactic Acid Calcium 8.3 L Ferritin AST Alkaline Phosphatase Magnesium Lactate Dehydrogenase Total Creatine Kinase CK-MB (CK-2) C-Reactive Protein Total Protein 5.4 L Albumin 2.4 L Troponin T HDL Cholesterol Arterial Blood Glucose Urine WBC (Auto) Urine Creatinine Urine Total Protein Phenytoin Coronavirus (PCR) Crossmatch 05/31/20 06/01/20 06/01/20 23:51 04:00 05:48 WBC RBC Hgb Hct MCHC RDW Lymph % (Auto) [place] % (Auto) Eos % (Auto) Lymph # [place] # Lymph # (Auto) [place] # (Auto) Eos # (Auto) Seg Neutrophils % Seg Neuts % (Manual) Lymphocytes % (Manual) Seg Neutrophils # Seg Neutrophils # Man Lymphocytes # (Manual) Monocytes % (Manual) Eosinophils % (Manual) Monocytes # (Manual) Eosinophils # (Manual) D-Dimer Heparin Anti-Xa Level ABG pH POC ABG pCO2 POC ABG pO2 ABG pO2 109.8 H ABG HCO3 18.8 L ABG O2 Saturation ABG Base Excess -5.9 L ABG Hemoglobin 7.8 L ABG Oxyhemoglobin VBG pH ABG Sodium ABG Potassium ABG Glucose Oxyhemoglobin Sodium Potassium Chloride Carbon Dioxide BUN Creatinine Glucose POC Glucose 171 H 133 H Lactic Acid Calcium Ferritin AST Alkaline Phosphatase Magnesium Lactate Dehydrogenase Total Creatine Kinase CK-MB (CK-2) C-Reactive Protein Total Protein Albumin Troponin T HDL Cholesterol Arterial Blood Glucose Urine WBC (Auto) Urine Creatinine Urine Total Protein Phenytoin Coronavirus (PCR) Crossmatch 06/01/20 06/01/20 06/02/20 12:28 17:29 00:08 WBC RBC Hgb Hct MCHC RDW Lymph % (Auto) [place] % (Auto) Eos % (Auto) Lymph # [place] # Lymph # (Auto) [place] # (Auto) Eos # (Auto) Seg Neutrophils % Seg Neuts % (Manual) Lymphocytes % (Manual) Seg Neutrophils # Seg Neutrophils # Man Lymphocytes # (Manual) Monocytes % (Manual) Eosinophils % (Manual) Monocytes # (Manual) Eosinophils # (Manual) D-Dimer Heparin Anti-Xa Level ABG pH POC ABG pCO2 POC ABG pO2 ABG pO2 ABG HCO3 ABG O2 Saturation ABG Base Excess ABG Hemoglobin ABG Oxyhemoglobin VBG pH ABG Sodium ABG Potassium ABG Glucose Oxyhemoglobin Sodium Potassium Chloride Carbon Dioxide BUN Creatinine Glucose POC Glucose 199 H 209 H 162 H Lactic Acid Calcium Ferritin AST Alkaline Phosphatase Magnesium Lactate Dehydrogenase Total Creatine Kinase CK-MB (CK-2) C-Reactive Protein Total Protein Albumin Troponin T HDL Cholesterol Arterial Blood Glucose Urine WBC (Auto) Urine Creatinine Urine Total Protein Phenytoin Coronavirus (PCR) Crossmatch 06/02/20 06/02/20 06/02/20 04:20 04:20 04:44 WBC RBC Hgb 10.0 L Hct MCHC RDW Lymph % (Auto) [place] % (Auto) Eos % (Auto) Lymph # [place] # Lymph # (Auto) [place] # (Auto) Eos # (Auto) Seg Neutrophils % Seg Neuts % (Manual) Lymphocytes % (Manual) Seg Neutrophils # Seg Neutrophils # Man Lymphocytes # (Manual) Monocytes % (Manual) Eosinophils % (Manual) Monocytes # (Manual) Eosinophils # (Manual) D-Dimer Heparin Anti-Xa Level 0.10 L ABG pH POC ABG pCO2 POC ABG pO2 ABG pO2 150.6 H ABG HCO3 ABG O2 Saturation ABG Base Excess -4.1 L ABG Hemoglobin 11.8 L ABG Oxyhemoglobin VBG pH ABG Sodium ABG Potassium ABG Glucose Oxyhemoglobin Sodium Potassium Chloride Carbon Dioxide BUN Creatinine Glucose POC Glucose Lactic Acid Calcium Ferritin AST Alkaline Phosphatase Magnesium Lactate Dehydrogenase Total Creatine Kinase CK-MB (CK-2) C-Reactive Protein Total Protein Albumin Troponin T HDL Cholesterol Arterial Blood Glucose Urine WBC (Auto) Urine Creatinine Urine Total Protein Phenytoin Coronavirus (PCR) Crossmatch 06/02/20 06/02/20 06/02/20 05:53 12:04 13:49 WBC RBC Hgb Hct MCHC RDW Lymph % (Auto) [place] % (Auto) Eos % (Auto) Lymph # [place] # Lymph # (Auto) [place] # (Auto) Eos # (Auto) Seg Neutrophils % Seg Neuts % (Manual) Lymphocytes % (Manual) Seg Neutrophils # Seg Neutrophils # Man Lymphocytes # (Manual) Monocytes % (Manual) Eosinophils % (Manual) Monocytes # (Manual) Eosinophils # (Manual) D-Dimer Heparin Anti-Xa Level 0.28 L ABG pH POC ABG pCO2 POC ABG pO2 ABG pO2 ABG HCO3 ABG O2 Saturation ABG Base Excess ABG Hemoglobin ABG Oxyhemoglobin VBG pH ABG Sodium ABG Potassium ABG Glucose Oxyhemoglobin Sodium Potassium Chloride Carbon Dioxide BUN Creatinine Glucose POC Glucose 149 H 220 H Lactic Acid Calcium Ferritin AST Alkaline Phosphatase Magnesium Lactate Dehydrogenase Total Creatine Kinase CK-MB (CK-2) C-Reactive Protein Total Protein Albumin Troponin T HDL Cholesterol Arterial Blood Glucose Urine WBC (Auto) Urine Creatinine Urine Total Protein Phenytoin Coronavirus (PCR) Crossmatch 06/02/20 06/02/20 06/03/20 13:49 18:31 00:42 WBC RBC Hgb Hct MCHC RDW Lymph % (Auto) [place] % (Auto) Eos % (Auto) Lymph # [place] # Lymph # (Auto) [place] # (Auto) Eos # (Auto) Seg Neutrophils % Seg Neuts % (Manual) Lymphocytes % (Manual) Seg Neutrophils # Seg Neutrophils # Man Lymphocytes # (Manual) Monocytes % (Manual) Eosinophils % (Manual) Monocytes # (Manual) Eosinophils # (Manual) D-Dimer 769.68 H Heparin Anti-Xa Level ABG pH POC ABG pCO2 POC ABG pO2 ABG pO2 ABG HCO3 ABG O2 Saturation ABG Base Excess ABG Hemoglobin ABG Oxyhemoglobin VBG pH ABG Sodium ABG Potassium ABG Glucose Oxyhemoglobin Sodium Potassium Chloride Carbon Dioxide BUN Creatinine Glucose POC Glucose 225 H 212 H Lactic Acid Calcium Ferritin AST Alkaline Phosphatase Magnesium Lactate Dehydrogenase Total Creatine Kinase CK-MB (CK-2) C-Reactive Protein Total Protein Albumin Troponin T HDL Cholesterol Arterial Blood Glucose Urine WBC (Auto) Urine Creatinine Urine Total Protein Phenytoin Coronavirus (PCR) Crossmatch 06/03/20 06/03/20 06/03/20 05:16 05:16 05:25 WBC 11.4 H RBC Hgb Hct MCHC RDW 16.4 H Lymph % (Auto) [place] % (Auto) Eos % (Auto) Lymph # [place] # Lymph # (Auto) [place] # (Auto) Eos # (Auto) Seg Neutrophils % Seg Neuts % (Manual) Lymphocytes % (Manual) Seg Neutrophils # Seg Neutrophils # Man Lymphocytes # (Manual) Monocytes % (Manual) Eosinophils % (Manual) Monocytes # (Manual) Eosinophils # (Manual) D-Dimer Heparin Anti-Xa Level ABG pH POC ABG pCO2 POC ABG pO2 ABG pO2 160.9 H ABG HCO3 19.4 L ABG O2 Saturation ABG Base Excess -4.9 L ABG Hemoglobin 7.0 L ABG Oxyhemoglobin VBG pH ABG Sodium ABG Potassium ABG Glucose Oxyhemoglobin Sodium Potassium Chloride Carbon Dioxide 18 L BUN 65 H Creatinine 2.0 H Glucose 175 H POC Glucose Lactic Acid Calcium 8.0 L Ferritin AST Alkaline Phosphatase Magnesium Lactate Dehydrogenase Total Creatine Kinase CK-MB (CK-2) C-Reactive Protein Total Protein 5.5 L Albumin 2.2 L Troponin T HDL Cholesterol Arterial Blood Glucose Urine WBC (Auto) Urine Creatinine Urine Total Protein Phenytoin Coronavirus (PCR) Crossmatch 06/03/20 06/03/20 06/03/20 06:07 11:58 18:24 WBC RBC Hgb Hct MCHC RDW Lymph % (Auto) [place] % (Auto) Eos % (Auto) Lymph # [place] # Lymph # (Auto) [place] # (Auto) Eos # (Auto) Seg Neutrophils % Seg Neuts % (Manual) Lymphocytes % (Manual) Seg Neutrophils # Seg Neutrophils # Man Lymphocytes # (Manual) Monocytes % (Manual) Eosinophils % (Manual) Monocytes # (Manual) Eosinophils # (Manual) D-Dimer Heparin Anti-Xa Level ABG pH POC ABG pCO2 POC ABG pO2 ABG pO2 ABG HCO3 ABG O2 Saturation ABG Base Excess ABG Hemoglobin ABG Oxyhemoglobin VBG pH ABG Sodium ABG Potassium ABG Glucose Oxyhemoglobin Sodium Potassium Chloride Carbon Dioxide BUN Creatinine Glucose POC Glucose 177 H 163 H 211 H Lactic Acid Calcium Ferritin AST Alkaline Phosphatase Magnesium Lactate Dehydrogenase Total Creatine Kinase CK-MB (CK-2) C-Reactive Protein Total Protein Albumin Troponin T HDL Cholesterol Arterial Blood Glucose Urine WBC (Auto) Urine Creatinine Urine Total Protein Phenytoin Coronavirus (PCR) Crossmatch 06/03/20 06/03/20 06/04/20 21:50 Unknown 00:26 WBC RBC Hgb Hct MCHC RDW Lymph % (Auto) [place] % (Auto) Eos % (Auto) Lymph # [place] # Lymph # (Auto) [place] # (Auto) Eos # (Auto) Seg Neutrophils % Seg Neuts % (Manual) Lymphocytes % (Manual) Seg Neutrophils # Seg Neutrophils # Man Lymphocytes # (Manual) Monocytes % (Manual) Eosinophils % (Manual) Monocytes # (Manual) Eosinophils # (Manual) D-Dimer Heparin Anti-Xa Level ABG pH POC ABG pCO2 POC ABG pO2 ABG pO2 ABG HCO3 ABG O2 Saturation ABG Base Excess ABG Hemoglobin ABG Oxyhemoglobin VBG pH ABG Sodium ABG Potassium ABG Glucose Oxyhemoglobin Sodium 135 L Potassium Chloride Carbon Dioxide 18 L BUN Creatinine Glucose POC Glucose 241 H Lactic Acid Calcium Ferritin AST Alkaline Phosphatase Magnesium Lactate Dehydrogenase Total Creatine Kinase CK-MB (CK-2) C-Reactive Protein Total Protein Albumin Troponin T HDL Cholesterol Arterial Blood Glucose Urine WBC (Auto) 11.0 H Urine Creatinine Urine Total Protein Phenytoin Coronavirus (PCR) Crossmatch 06/04/20 06/04/20 06/04/20 03:35 04:19 04:19 WBC RBC 3.15 L Hgb 8.9 L Hct 26.8 L D MCHC RDW 15.9 H Lymph % (Auto) 6.0 L [place] % (Auto) Eos % (Auto) Lymph # 0.6 L [place] # Lymph # (Auto) [place] # (Auto) Eos # (Auto) Seg Neutrophils % 86.6 H Seg Neuts % (Manual) Lymphocytes % (Manual) Seg Neutrophils # 9.1 H Seg Neutrophils # Man Lymphocytes # (Manual) Monocytes % (Manual) Eosinophils % (Manual) Monocytes # (Manual) Eosinophils # (Manual) D-Dimer Heparin Anti-Xa Level ABG pH 7.331 L POC ABG pCO2 POC ABG pO2 ABG pO2 ABG HCO3 ABG O2 Saturation ABG Base Excess -4.7 L ABG Hemoglobin 11.0 L ABG Oxyhemoglobin VBG pH ABG Sodium ABG Potassium ABG Glucose Oxyhemoglobin 93.9 L Sodium 136 L Potassium Chloride Carbon Dioxide 20 L BUN 73 H Creatinine 2.0 H Glucose 192 H POC Glucose Lactic Acid Calcium 8.0 L Ferritin AST Alkaline Phosphatase Magnesium Lactate Dehydrogenase 271 H Total Creatine Kinase CK-MB (CK-2) C-Reactive Protein 2.20 H Total Protein 5.0 L Albumin 2.0 L Troponin T HDL Cholesterol Arterial Blood Glucose Urine WBC (Auto) Urine Creatinine Urine Total Protein Phenytoin Coronavirus (PCR) Crossmatch 06/04/20 06/04/20 06/04/20 04:19 05:51 11:48 WBC RBC Hgb Hct MCHC RDW Lymph % (Auto) [place] % (Auto) Eos % (Auto) Lymph # [place] # Lymph # (Auto) [place] # (Auto) Eos # (Auto) Seg Neutrophils % Seg Neuts % (Manual) Lymphocytes % (Manual) Seg Neutrophils # Seg Neutrophils # Man Lymphocytes # (Manual) Monocytes % (Manual) Eosinophils % (Manual) Monocytes # (Manual) Eosinophils # (Manual) D-Dimer 414.52 H Heparin Anti-Xa Level ABG pH POC ABG pCO2 POC ABG pO2 ABG pO2 ABG HCO3 ABG O2 Saturation ABG Base Excess ABG Hemoglobin ABG Oxyhemoglobin VBG pH ABG Sodium ABG Potassium ABG Glucose Oxyhemoglobin Sodium Potassium Chloride Carbon Dioxide BUN Creatinine Glucose POC Glucose 179 H 213 H Lactic Acid Calcium Ferritin AST Alkaline Phosphatase Magnesium Lactate Dehydrogenase Total Creatine Kinase CK-MB (CK-2) C-Reactive Protein Total Protein Albumin Troponin T HDL Cholesterol Arterial Blood Glucose Urine WBC (Auto) Urine Creatinine Urine Total Protein Phenytoin Coronavirus (PCR) Crossmatch 06/04/20 06/05/20 06/05/20 18:25 00:16 05:00 WBC RBC Hgb Hct MCHC RDW Lymph % (Auto) [place] % (Auto) Eos % (Auto) Lymph # [place] # Lymph # (Auto) [place] # (Auto) Eos # (Auto) Seg Neutrophils % Seg Neuts % (Manual) Lymphocytes % (Manual) Seg Neutrophils # Seg Neutrophils # Man Lymphocytes # (Manual) Monocytes % (Manual) Eosinophils % (Manual) Monocytes # (Manual) Eosinophils # (Manual) D-Dimer Heparin Anti-Xa Level ABG pH 7.286 L POC ABG pCO2 POC ABG pO2 ABG pO2 96.2 H ABG HCO3 ABG O2 Saturation ABG Base Excess -6.3 L ABG Hemoglobin 8.8 L ABG Oxyhemoglobin VBG pH ABG Sodium ABG Potassium ABG Glucose Oxyhemoglobin 94.8 L Sodium Potassium Chloride Carbon Dioxide BUN Creatinine Glucose POC Glucose 238 H 183 H Lactic Acid Calcium Ferritin AST Alkaline Phosphatase Magnesium Lactate Dehydrogenase Total Creatine Kinase CK-MB (CK-2) C-Reactive Protein Total Protein Albumin Troponin T HDL Cholesterol Arterial Blood Glucose Urine WBC (Auto) Urine Creatinine Urine Total Protein Phenytoin Coronavirus (PCR) Crossmatch 06/05/20 06/05/20 06/05/20 05:39 07:25 07:25 WBC RBC 2.97 L Hgb 8.7 L Hct 25.7 L MCHC RDW 16.0 H Lymph % (Auto) 8.8 L [place] % (Auto) 13.3 H Eos % (Auto) Lymph # 0.8 L [place] # 1.3 H Lymph # (Auto) [place] # (Auto) Eos # (Auto) Seg Neutrophils % 77.3 H Seg Neuts % (Manual) Lymphocytes % (Manual) Seg Neutrophils # Seg Neutrophils # Man Lymphocytes # (Manual) Monocytes % (Manual) Eosinophils % (Manual) Monocytes # (Manual) Eosinophils # (Manual) D-Dimer Heparin Anti-Xa Level ABG pH POC ABG pCO2 POC ABG pO2 ABG pO2 ABG HCO3 ABG O2 Saturation ABG Base Excess ABG Hemoglobin ABG Oxyhemoglobin VBG pH ABG Sodium ABG Potassium ABG Glucose Oxyhemoglobin Sodium 133 L Potassium Chloride Carbon Dioxide 17 L BUN 89 H Creatinine 2.8 H Glucose 176 H POC Glucose 149 H Lactic Acid Calcium 7.7 L Ferritin AST Alkaline Phosphatase Magnesium Lactate Dehydrogenase Total Creatine Kinase CK-MB (CK-2) C-Reactive Protein Total Protein 4.2 L Albumin 1.9 L Troponin T HDL Cholesterol Arterial Blood Glucose Urine WBC (Auto) Urine Creatinine Urine Total Protein Phenytoin Coronavirus (PCR) Crossmatch 06/05/20 06/05/20 06/05/20 07:25 12:05 15:41 WBC RBC Hgb Hct MCHC RDW Lymph % (Auto) [place] % (Auto) Eos % (Auto) Lymph # [place] # Lymph # (Auto) [place] # (Auto) Eos # (Auto) Seg Neutrophils % Seg Neuts % (Manual) Lymphocytes % (Manual) Seg Neutrophils # Seg Neutrophils # Man Lymphocytes # (Manual) Monocytes % (Manual) Eosinophils % (Manual) Monocytes # (Manual) Eosinophils # (Manual) D-Dimer Heparin Anti-Xa Level 0.76 H 0.81 H ABG pH POC ABG pCO2 POC ABG pO2 ABG pO2 ABG HCO3 ABG O2 Saturation ABG Base Excess ABG Hemoglobin ABG Oxyhemoglobin VBG pH ABG Sodium ABG Potassium ABG Glucose Oxyhemoglobin Sodium Potassium Chloride Carbon Dioxide BUN Creatinine Glucose POC Glucose 198 H Lactic Acid Calcium Ferritin AST Alkaline Phosphatase Magnesium Lactate Dehydrogenase Total Creatine Kinase CK-MB (CK-2) C-Reactive Protein Total Protein Albumin Troponin T HDL Cholesterol Arterial Blood Glucose Urine WBC (Auto) Urine Creatinine Urine Total Protein Phenytoin Coronavirus (PCR) Crossmatch 06/05/20 06/05/20 06/06/20 18:08 23:25 04:00 WBC RBC Hgb Hct MCHC RDW Lymph % (Auto) [place] % (Auto) Eos % (Auto) Lymph # [place] # Lymph # (Auto) [place] # (Auto) Eos # (Auto) Seg Neutrophils % Seg Neuts % (Manual) Lymphocytes % (Manual) Seg Neutrophils # Seg Neutrophils # Man Lymphocytes # (Manual) Monocytes % (Manual) Eosinophils % (Manual) Monocytes # (Manual) Eosinophils # (Manual) D-Dimer Heparin Anti-Xa Level ABG pH POC ABG pCO2 POC ABG pO2 ABG pO2 ABG HCO3 ABG O2 Saturation ABG Base Excess ABG Hemoglobin ABG Oxyhemoglobin VBG pH ABG Sodium ABG Potassium ABG Glucose Oxyhemoglobin Sodium Potassium Chloride Carbon Dioxide BUN Creatinine Glucose POC Glucose 223 H 169 H Lactic Acid Calcium Ferritin AST Alkaline Phosphatase Magnesium Lactate Dehydrogenase Total Creatine Kinase CK-MB (CK-2) C-Reactive Protein Total Protein Albumin Troponin T HDL Cholesterol Arterial Blood Glucose Urine WBC (Auto) 15.0 H Urine Creatinine Urine Total Protein Phenytoin Coronavirus (PCR) Crossmatch 06/06/20 06/06/20 06/06/20 04:00 05:33 05:38 WBC RBC 2.97 L Hgb 8.7 L Hct 26.8 L MCHC RDW 16.8 H Lymph % (Auto) [place] % (Auto) Eos % (Auto) Lymph # [place] # Lymph # (Auto) [place] # (Auto) Eos # (Auto) Seg Neutrophils % Seg Neuts % (Manual) Lymphocytes % (Manual) Seg Neutrophils # Seg Neutrophils # Man Lymphocytes # (Manual) Monocytes % (Manual) Eosinophils % (Manual) Monocytes # (Manual) Eosinophils # (Manual) D-Dimer Heparin Anti-Xa Level ABG pH POC ABG pCO2 POC ABG pO2 ABG pO2 ABG HCO3 ABG O2 Saturation ABG Base Excess ABG Hemoglobin ABG Oxyhemoglobin VBG pH ABG Sodium ABG Potassium ABG Glucose Oxyhemoglobin Sodium Potassium Chloride Carbon Dioxide BUN Creatinine Glucose POC Glucose 186 H Lactic Acid Calcium Ferritin AST Alkaline Phosphatase Magnesium Lactate Dehydrogenase Total Creatine Kinase CK-MB (CK-2) C-Reactive Protein Total Protein Albumin Troponin T HDL Cholesterol Arterial Blood Glucose Urine WBC (Auto) Urine Creatinine 82.2 H Urine Total Protein 196 H Phenytoin Coronavirus (PCR) Crossmatch 06/06/20 06/06/20 06/06/20 05:38 12:25 17:03 WBC RBC Hgb Hct MCHC RDW Lymph % (Auto) [place] % (Auto) Eos % (Auto) Lymph # [place] # Lymph # (Auto) [place] # (Auto) Eos # (Auto) Seg Neutrophils % Seg Neuts % (Manual) Lymphocytes % (Manual) Seg Neutrophils # Seg Neutrophils # Man Lymphocytes # (Manual) Monocytes % (Manual) Eosinophils % (Manual) Monocytes # (Manual) Eosinophils # (Manual) D-Dimer Heparin Anti-Xa Level ABG pH POC ABG pCO2 POC ABG pO2 ABG pO2 ABG HCO3 ABG O2 Saturation ABG Base Excess ABG Hemoglobin ABG Oxyhemoglobin VBG pH ABG Sodium ABG Potassium ABG Glucose Oxyhemoglobin Sodium 134 L Potassium 5.2 H Chloride Carbon Dioxide 18 L BUN 97 H Creatinine 2.5 H Glucose 193 H POC Glucose 239 H 252 H Lactic Acid Calcium 7.5 L Ferritin AST Alkaline Phosphatase Magnesium Lactate Dehydrogenase Total Creatine Kinase CK-MB (CK-2) C-Reactive Protein Total Protein 4.1 L Albumin 1.9 L Troponin T HDL Cholesterol Arterial Blood Glucose Urine WBC (Auto) Urine Creatinine Urine Total Protein Phenytoin Coronavirus (PCR) Crossmatch 06/07/20 06/07/20 06/07/20 00:16 01:49 04:00 WBC RBC 2.91 L Hgb 8.4 L Hct 25.0 L MCHC RDW 16.1 H Lymph % (Auto) 5.7 L [place] % (Auto) 10.5 H Eos % (Auto) Lymph # 0.6 L [place] # 1.1 H Lymph # (Auto) [place] # (Auto) Eos # (Auto) Seg Neutrophils % 83.6 H Seg Neuts % (Manual) Lymphocytes % (Manual) Seg Neutrophils # 9.1 H Seg Neutrophils # Man Lymphocytes # (Manual) Monocytes % (Manual) Eosinophils % (Manual) Monocytes # (Manual) Eosinophils # (Manual) D-Dimer Heparin Anti-Xa Level 0.26 L ABG pH POC ABG pCO2 POC ABG pO2 ABG pO2 ABG HCO3 ABG O2 Saturation ABG Base Excess ABG Hemoglobin ABG Oxyhemoglobin VBG pH ABG Sodium ABG Potassium ABG Glucose Oxyhemoglobin Sodium Potassium Chloride Carbon Dioxide BUN Creatinine Glucose POC Glucose 173 H Lactic Acid Calcium Ferritin AST Alkaline Phosphatase Magnesium Lactate Dehydrogenase Total Creatine Kinase CK-MB (CK-2) C-Reactive Protein Total Protein Albumin Troponin T HDL Cholesterol Arterial Blood Glucose Urine WBC (Auto) Urine Creatinine Urine Total Protein Phenytoin Coronavirus (PCR) Crossmatch 06/07/20 06/07/20 06/07/20 04:00 04:54 05:51 WBC RBC Hgb Hct MCHC RDW Lymph % (Auto) [place] % (Auto) Eos % (Auto) Lymph # [place] # Lymph # (Auto) [place] # (Auto) Eos # (Auto) Seg Neutrophils % Seg Neuts % (Manual) Lymphocytes % (Manual) Seg Neutrophils # Seg Neutrophils # Man Lymphocytes # (Manual) Monocytes % (Manual) Eosinophils % (Manual) Monocytes # (Manual) Eosinophils # (Manual) D-Dimer Heparin Anti-Xa Level ABG pH 7.317 L POC ABG pCO2 POC ABG pO2 ABG pO2 71.4 L ABG HCO3 ABG O2 Saturation 94.3 L ABG Base Excess -4.8 L ABG Hemoglobin 7.1 L ABG Oxyhemoglobin VBG pH ABG Sodium ABG Potassium ABG Glucose Oxyhemoglobin 92.2 L Sodium 133 L Potassium Chloride Carbon Dioxide 18 L BUN 100 H Creatinine 2.5 H Glucose 158 H POC Glucose 168 H Lactic Acid Calcium 7.6 L Ferritin AST Alkaline Phosphatase Magnesium Lactate Dehydrogenase Total Creatine Kinase CK-MB (CK-2) C-Reactive Protein Total Protein 4.7 L Albumin 2.0 L Troponin T HDL Cholesterol Arterial Blood Glucose Urine WBC (Auto) Urine Creatinine Urine Total Protein Phenytoin Coronavirus (PCR) Crossmatch 06/07/20 06/07/20 06/07/20 12:03 17:17 20:10 WBC RBC Hgb Hct MCHC RDW Lymph % (Auto) [place] % (Auto) Eos % (Auto) Lymph # [place] # Lymph # (Auto) [place] # (Auto) Eos # (Auto) Seg Neutrophils % Seg Neuts % (Manual) Lymphocytes % (Manual) Seg Neutrophils # Seg Neutrophils # Man Lymphocytes # (Manual) Monocytes % (Manual) Eosinophils % (Manual) Monocytes # (Manual) Eosinophils # (Manual) D-Dimer Heparin Anti-Xa Level 0.17 L ABG pH POC ABG pCO2 POC ABG pO2 ABG pO2 ABG HCO3 ABG O2 Saturation ABG Base Excess ABG Hemoglobin ABG Oxyhemoglobin VBG pH ABG Sodium ABG Potassium ABG Glucose Oxyhemoglobin Sodium Potassium Chloride Carbon Dioxide BUN Creatinine Glucose POC Glucose 276 H 281 H Lactic Acid Calcium Ferritin AST Alkaline Phosphatase Magnesium Lactate Dehydrogenase Total Creatine Kinase CK-MB (CK-2) C-Reactive Protein Total Protein Albumin Troponin T HDL Cholesterol Arterial Blood Glucose Urine WBC (Auto) Urine Creatinine Urine Total Protein Phenytoin Coronavirus (PCR) Crossmatch 06/08/20 06/08/20 06/08/20 00:02 04:47 04:47 WBC 16.4 H RBC 3.07 L Hgb 8.6 L Hct 26.5 L MCHC RDW 16.3 H Lymph % (Auto) [place] % (Auto) Eos % (Auto) Lymph # [place] # Lymph # (Auto) [place] # (Auto) Eos # (Auto) Seg Neutrophils % Seg Neuts % (Manual) 90.0 H Lymphocytes % (Manual) 3.0 L Seg Neutrophils # Seg Neutrophils # Man 14.8 H Lymphocytes # (Manual) 0.5 L Monocytes % (Manual) Eosinophils % (Manual) Monocytes # (Manual) 1.1 H Eosinophils # (Manual) D-Dimer Heparin Anti-Xa Level ABG pH POC ABG pCO2 POC ABG pO2 ABG pO2 ABG HCO3 ABG O2 Saturation ABG Base Excess ABG Hemoglobin ABG Oxyhemoglobin VBG pH ABG Sodium ABG Potassium ABG Glucose Oxyhemoglobin Sodium 129 L Potassium Chloride 95.6 L Carbon Dioxide 17 L BUN 106 H Creatinine 2.5 H Glucose 213 H POC Glucose 242 H Lactic Acid Calcium 7.6 L Ferritin AST Alkaline Phosphatase Magnesium Lactate Dehydrogenase Total Creatine Kinase CK-MB (CK-2) C-Reactive Protein Total Protein 5.0 L Albumin 2.1 L Troponin T HDL Cholesterol Arterial Blood Glucose Urine WBC (Auto) Urine Creatinine Urine Total Protein Phenytoin Coronavirus (PCR) Crossmatch 06/08/20 06/08/20 06/08/20 05:40 11:55 17:54 WBC RBC Hgb Hct MCHC RDW Lymph % (Auto) [place] % (Auto) Eos % (Auto) Lymph # [place] # Lymph # (Auto) [place] # (Auto) Eos # (Auto) Seg Neutrophils % Seg Neuts % (Manual) Lymphocytes % (Manual) Seg Neutrophils # Seg Neutrophils # Man Lymphocytes # (Manual) Monocytes % (Manual) Eosinophils % (Manual) Monocytes # (Manual) Eosinophils # (Manual) D-Dimer Heparin Anti-Xa Level ABG pH POC ABG pCO2 POC ABG pO2 ABG pO2 ABG HCO3 ABG O2 Saturation ABG Base Excess ABG Hemoglobin ABG Oxyhemoglobin VBG pH ABG Sodium ABG Potassium ABG Glucose Oxyhemoglobin Sodium Potassium Chloride Carbon Dioxide BUN Creatinine Glucose POC Glucose 221 H 218 H 163 H Lactic Acid Calcium Ferritin AST Alkaline Phosphatase Magnesium Lactate Dehydrogenase Total Creatine Kinase CK-MB (CK-2) C-Reactive Protein Total Protein Albumin Troponin T HDL Cholesterol Arterial Blood Glucose Urine WBC (Auto) Urine Creatinine Urine Total Protein Phenytoin Coronavirus (PCR) Crossmatch 06/08/20 06/09/20 06/09/20 22:01 00:09 05:16 WBC 19.0 H RBC 3.35 L Hgb 9.2 L Hct 28.5 L MCHC RDW 16.3 H Lymph % (Auto) [place] % (Auto) Eos % (Auto) Lymph # [place] # Lymph # (Auto) [place] # (Auto) Eos # (Auto) Seg Neutrophils % Seg Neuts % (Manual) 85.0 H Lymphocytes % (Manual) 7.0 L Seg Neutrophils # Seg Neutrophils # Man 16.2 H Lymphocytes # (Manual) Monocytes % (Manual) Eosinophils % (Manual) Monocytes # (Manual) 1.3 H Eosinophils # (Manual) D-Dimer Heparin Anti-Xa Level ABG pH POC ABG pCO2 POC ABG pO2 ABG pO2 ABG HCO3 ABG O2 Saturation ABG Base Excess ABG Hemoglobin ABG Oxyhemoglobin VBG pH ABG Sodium ABG Potassium ABG Glucose Oxyhemoglobin Sodium Potassium Chloride Carbon Dioxide BUN Creatinine Glucose POC Glucose 182 H 150 H Lactic Acid Calcium Ferritin AST Alkaline Phosphatase Magnesium Lactate Dehydrogenase Total Creatine Kinase CK-MB (CK-2) C-Reactive Protein Total Protein Albumin Troponin T HDL Cholesterol Arterial Blood Glucose Urine WBC (Auto) Urine Creatinine Urine Total Protein Phenytoin Coronavirus (PCR) Crossmatch 06/09/20 06/09/20 06/09/20 05:16 05:24 11:29 WBC RBC Hgb Hct MCHC RDW Lymph % (Auto) [place] % (Auto) Eos % (Auto) Lymph # [place] # Lymph # (Auto) [place] # (Auto) Eos # (Auto) Seg Neutrophils % Seg Neuts % (Manual) Lymphocytes % (Manual) Seg Neutrophils # Seg Neutrophils # Man Lymphocytes # (Manual) Monocytes % (Manual) Eosinophils % (Manual) Monocytes # (Manual) Eosinophils # (Manual) D-Dimer Heparin Anti-Xa Level ABG pH POC ABG pCO2 POC ABG pO2 ABG pO2 ABG HCO3 ABG O2 Saturation ABG Base Excess ABG Hemoglobin ABG Oxyhemoglobin VBG pH ABG Sodium ABG Potassium ABG Glucose Oxyhemoglobin Sodium 133 L Potassium Chloride Carbon Dioxide 19 L BUN 109 H Creatinine 2.1 H Glucose 133 H POC Glucose 128 H 119 H Lactic Acid Calcium 7.7 L Ferritin AST Alkaline Phosphatase < 5 L Magnesium Lactate Dehydrogenase Total Creatine Kinase CK-MB (CK-2) C-Reactive Protein Total Protein 4.6 L Albumin < 0.2 L Troponin T HDL Cholesterol Arterial Blood Glucose Urine WBC (Auto) Urine Creatinine Urine Total Protein Phenytoin Coronavirus (PCR) Crossmatch 06/09/20 06/10/20 06/10/20 17:32 00:00 05:49 WBC RBC Hgb Hct MCHC RDW Lymph % (Auto) [place] % (Auto) Eos % (Auto) Lymph # [place] # Lymph # (Auto) [place] # (Auto) Eos # (Auto) Seg Neutrophils % Seg Neuts % (Manual) Lymphocytes % (Manual) Seg Neutrophils # Seg Neutrophils # Man Lymphocytes # (Manual) Monocytes % (Manual) Eosinophils % (Manual) Monocytes # (Manual) Eosinophils # (Manual) D-Dimer Heparin Anti-Xa Level 0.19 L ABG pH POC ABG pCO2 POC ABG pO2 ABG pO2 ABG HCO3 ABG O2 Saturation ABG Base Excess ABG Hemoglobin ABG Oxyhemoglobin VBG pH ABG Sodium ABG Potassium ABG Glucose Oxyhemoglobin Sodium Potassium Chloride Carbon Dioxide BUN Creatinine Glucose POC Glucose 106 H 117 H Lactic Acid Calcium Ferritin AST Alkaline Phosphatase Magnesium Lactate Dehydrogenase Total Creatine Kinase CK-MB (CK-2) C-Reactive Protein Total Protein Albumin Troponin T HDL Cholesterol Arterial Blood Glucose Urine WBC (Auto) Urine Creatinine Urine Total Protein Phenytoin Coronavirus (PCR) Crossmatch 06/10/20 06/10/20 06/10/20 05:54 07:40 11:40 WBC RBC Hgb Hct MCHC RDW Lymph % (Auto) [place] % (Auto) Eos % (Auto) Lymph # [place] # Lymph # (Auto) [place] # (Auto) Eos # (Auto) Seg Neutrophils % Seg Neuts % (Manual) Lymphocytes % (Manual) Seg Neutrophils # Seg Neutrophils # Man Lymphocytes # (Manual) Monocytes % (Manual) Eosinophils % (Manual) Monocytes # (Manual) Eosinophils # (Manual) D-Dimer Heparin Anti-Xa Level ABG pH POC ABG pCO2 POC ABG pO2 ABG pO2 ABG HCO3 ABG O2 Saturation ABG Base Excess ABG Hemoglobin ABG Oxyhemoglobin VBG pH ABG Sodium ABG Potassium ABG Glucose Oxyhemoglobin Sodium 146 H D Potassium Chloride Carbon Dioxide 20 L BUN 99 H Creatinine 1.9 H Glucose 121 H POC Glucose 127 H 138 H Lactic Acid Calcium 8.2 L Ferritin AST Alkaline Phosphatase Magnesium Lactate Dehydrogenase Total Creatine Kinase CK-MB (CK-2) C-Reactive Protein Total Protein Albumin Troponin T HDL Cholesterol Arterial Blood Glucose Urine WBC (Auto) Urine Creatinine Urine Total Protein Phenytoin Coronavirus (PCR) Crossmatch 06/10/20 06/10/20 06/10/20 14:44 17:31 23:22 WBC RBC Hgb Hct MCHC RDW Lymph % (Auto) [place] % (Auto) Eos % (Auto) Lymph # [place] # Lymph # (Auto) [place] # (Auto) Eos # (Auto) Seg Neutrophils % Seg Neuts % (Manual) Lymphocytes % (Manual) Seg Neutrophils # Seg Neutrophils # Man Lymphocytes # (Manual) Monocytes % (Manual) Eosinophils % (Manual) Monocytes # (Manual) Eosinophils # (Manual) D-Dimer Heparin Anti-Xa Level 0.17 L ABG pH POC ABG pCO2 POC ABG pO2 ABG pO2 ABG HCO3 ABG O2 Saturation ABG Base Excess ABG Hemoglobin ABG Oxyhemoglobin VBG pH ABG Sodium ABG Potassium ABG Glucose Oxyhemoglobin Sodium Potassium Chloride Carbon Dioxide BUN Creatinine Glucose POC Glucose 128 H 114 H Lactic Acid Calcium Ferritin AST Alkaline Phosphatase Magnesium Lactate Dehydrogenase Total Creatine Kinase CK-MB (CK-2) C-Reactive Protein Total Protein Albumin Troponin T HDL Cholesterol Arterial Blood Glucose Urine WBC (Auto) Urine Creatinine Urine Total Protein Phenytoin Coronavirus (PCR) Crossmatch 06/11/20 06/11/20 06/11/20 00:22 03:45 03:45 WBC 14.6 H RBC 2.77 L Hgb 7.9 L Hct 24.3 L MCHC RDW 16.8 H Lymph % (Auto) 6.6 L [place] % (Auto) 8.5 H Eos % (Auto) Lymph # 1.0 L [place] # 1.2 H Lymph # (Auto) [place] # (Auto) Eos # (Auto) Seg Neutrophils % 82.9 H Seg Neuts % (Manual) Lymphocytes % (Manual) Seg Neutrophils # 12.1 H Seg Neutrophils # Man Lymphocytes # (Manual) Monocytes % (Manual) Eosinophils % (Manual) Monocytes # (Manual) Eosinophils # (Manual) D-Dimer Heparin Anti-Xa Level 0.24 L ABG pH POC ABG pCO2 POC ABG pO2 ABG pO2 ABG HCO3 ABG O2 Saturation ABG Base Excess ABG Hemoglobin ABG Oxyhemoglobin VBG pH ABG Sodium ABG Potassium ABG Glucose Oxyhemoglobin Sodium Potassium Chloride Carbon Dioxide 20 L BUN 88 H Creatinine 1.5 H Glucose 111 H POC Glucose Lactic Acid Calcium 8.2 L Ferritin AST Alkaline Phosphatase Magnesium Lactate Dehydrogenase Total Creatine Kinase CK-MB (CK-2) C-Reactive Protein Total Protein Albumin Troponin T HDL Cholesterol Arterial Blood Glucose Urine WBC (Auto) Urine Creatinine Urine Total Protein Phenytoin Coronavirus (PCR) Crossmatch 06/11/20 06/11/20 06/11/20 06:03 10:22 11:11 WBC RBC Hgb Hct MCHC RDW Lymph % (Auto) [place] % (Auto) Eos % (Auto) Lymph # [place] # Lymph # (Auto) [place] # (Auto) Eos # (Auto) Seg Neutrophils % Seg Neuts % (Manual) Lymphocytes % (Manual) Seg Neutrophils # Seg Neutrophils # Man Lymphocytes # (Manual) Monocytes % (Manual) Eosinophils % (Manual) Monocytes # (Manual) Eosinophils # (Manual) D-Dimer Heparin Anti-Xa Level 0.26 L ABG pH POC ABG pCO2 POC ABG pO2 ABG pO2 ABG HCO3 ABG O2 Saturation ABG Base Excess ABG Hemoglobin 9.6 L ABG Oxyhemoglobin VBG pH ABG Sodium ABG Potassium ABG Glucose Oxyhemoglobin Sodium Potassium Chloride Carbon Dioxide BUN Creatinine Glucose POC Glucose 114 H Lactic Acid Calcium Ferritin AST Alkaline Phosphatase Magnesium Lactate Dehydrogenase Total Creatine Kinase CK-MB (CK-2) C-Reactive Protein Total Protein Albumin Troponin T HDL Cholesterol Arterial Blood Glucose Urine WBC (Auto) Urine Creatinine Urine Total Protein Phenytoin Coronavirus (PCR) Crossmatch 06/11/20 06/11/20 06/12/20 12:24 17:24 00:21 WBC RBC Hgb Hct MCHC RDW Lymph % (Auto) [place] % (Auto) Eos % (Auto) Lymph # [place] # Lymph # (Auto) [place] # (Auto) Eos # (Auto) Seg Neutrophils % Seg Neuts % (Manual) Lymphocytes % (Manual) Seg Neutrophils # Seg Neutrophils # Man Lymphocytes # (Manual) Monocytes % (Manual) Eosinophils % (Manual) Monocytes # (Manual) Eosinophils # (Manual) D-Dimer Heparin Anti-Xa Level ABG pH POC ABG pCO2 POC ABG pO2 ABG pO2 ABG HCO3 ABG O2 Saturation ABG Base Excess ABG Hemoglobin ABG Oxyhemoglobin VBG pH ABG Sodium ABG Potassium ABG Glucose Oxyhemoglobin Sodium Potassium Chloride Carbon Dioxide BUN Creatinine Glucose POC Glucose 119 H 126 H 117 H Lactic Acid Calcium Ferritin AST Alkaline Phosphatase Magnesium Lactate Dehydrogenase Total Creatine Kinase CK-MB (CK-2) C-Reactive Protein Total Protein Albumin Troponin T HDL Cholesterol Arterial Blood Glucose Urine WBC (Auto) Urine Creatinine Urine Total Protein Phenytoin Coronavirus (PCR) Crossmatch 06/12/20 06/12/20 06/12/20 02:46 02:46 05:46 WBC 13.2 H RBC 2.83 L Hgb 8.3 L Hct 24.3 L MCHC RDW 16.6 H Lymph % (Auto) 6.2 L [place] % (Auto) 9.5 H Eos % (Auto) Lymph # 0.8 L [place] # 1.3 H Lymph # (Auto) [place] # (Auto) Eos # (Auto) Seg Neutrophils % 81.9 H Seg Neuts % (Manual) Lymphocytes % (Manual) Seg Neutrophils # 10.9 H Seg Neutrophils # Man Lymphocytes # (Manual) Monocytes % (Manual) Eosinophils % (Manual) Monocytes # (Manual) Eosinophils # (Manual) D-Dimer Heparin Anti-Xa Level ABG pH POC ABG pCO2 POC ABG pO2 ABG pO2 ABG HCO3 ABG O2 Saturation ABG Base Excess ABG Hemoglobin ABG Oxyhemoglobin VBG pH ABG Sodium ABG Potassium ABG Glucose Oxyhemoglobin Sodium Potassium 3.5 L Chloride Carbon Dioxide BUN 77 H Creatinine 1.3 H Glucose POC Glucose 132 H Lactic Acid Calcium 8.3 L Ferritin AST Alkaline Phosphatase Magnesium Lactate Dehydrogenase Total Creatine Kinase CK-MB (CK-2) C-Reactive Protein Total Protein Albumin Troponin T HDL Cholesterol Arterial Blood Glucose Urine WBC (Auto) Urine Creatinine Urine Total Protein Phenytoin Coronavirus (PCR) Crossmatch 06/12/20 06/12/20 06/12/20 09:20 12:16 17:48 WBC RBC Hgb Hct MCHC RDW Lymph % (Auto) [place] % (Auto) Eos % (Auto) Lymph # [place] # Lymph # (Auto) [place] # (Auto) Eos # (Auto) Seg Neutrophils % Seg Neuts % (Manual) Lymphocytes % (Manual) Seg Neutrophils # Seg Neutrophils # Man Lymphocytes # (Manual) Monocytes % (Manual) Eosinophils % (Manual) Monocytes # (Manual) Eosinophils # (Manual) D-Dimer Heparin Anti-Xa Level ABG pH POC ABG pCO2 POC ABG pO2 ABG pO2 91.1 H ABG HCO3 ABG O2 Saturation ABG Base Excess ABG Hemoglobin ABG Oxyhemoglobin VBG pH ABG Sodium ABG Potassium ABG Glucose Oxyhemoglobin 94.8 L Sodium Potassium Chloride Carbon Dioxide BUN Creatinine Glucose POC Glucose 167 H 182 H Lactic Acid Calcium Ferritin AST Alkaline Phosphatase Magnesium Lactate Dehydrogenase Total Creatine Kinase CK-MB (CK-2) C-Reactive Protein Total Protein Albumin Troponin T HDL Cholesterol Arterial Blood Glucose Urine WBC (Auto) Urine Creatinine Urine Total Protein Phenytoin Coronavirus (PCR) Crossmatch 06/13/20 06/13/20 06/13/20 00:08 05:37 09:09 WBC RBC Hgb Hct MCHC RDW Lymph % (Auto) [place] % (Auto) Eos % (Auto) Lymph # [place] # Lymph # (Auto) [place] # (Auto) Eos # (Auto) Seg Neutrophils % Seg Neuts % (Manual) Lymphocytes % (Manual) Seg Neutrophils # Seg Neutrophils # Man Lymphocytes # (Manual) Monocytes % (Manual) Eosinophils % (Manual) Monocytes # (Manual) Eosinophils # (Manual) D-Dimer Heparin Anti-Xa Level 0.86 H ABG pH POC ABG pCO2 POC ABG pO2 ABG pO2 ABG HCO3 ABG O2 Saturation ABG Base Excess ABG Hemoglobin ABG Oxyhemoglobin VBG pH ABG Sodium ABG Potassium ABG Glucose Oxyhemoglobin Sodium Potassium Chloride Carbon Dioxide BUN Creatinine Glucose POC Glucose 142 H 119 H Lactic Acid Calcium Ferritin AST Alkaline Phosphatase Magnesium Lactate Dehydrogenase Total Creatine Kinase CK-MB (CK-2) C-Reactive Protein Total Protein Albumin Troponin T HDL Cholesterol Arterial Blood Glucose Urine WBC (Auto) Urine Creatinine Urine Total Protein Phenytoin Coronavirus (PCR) Crossmatch 06/13/20 06/13/20 06/13/20 12:28 17:55 21:17 WBC RBC Hgb Hct MCHC RDW Lymph % (Auto) [place] % (Auto) Eos % (Auto) Lymph # [place] # Lymph # (Auto) [place] # (Auto) Eos # (Auto) Seg Neutrophils % Seg Neuts % (Manual) Lymphocytes % (Manual) Seg Neutrophils # Seg Neutrophils # Man Lymphocytes # (Manual) Monocytes % (Manual) Eosinophils % (Manual) Monocytes # (Manual) Eosinophils # (Manual) D-Dimer Heparin Anti-Xa Level ABG pH POC ABG pCO2 POC ABG pO2 ABG pO2 ABG HCO3 ABG O2 Saturation ABG Base Excess ABG Hemoglobin ABG Oxyhemoglobin VBG pH ABG Sodium ABG Potassium ABG Glucose Oxyhemoglobin Sodium Potassium Chloride Carbon Dioxide BUN 61 H Creatinine Glucose 131 H POC Glucose 165 H 174 H Lactic Acid Calcium Ferritin AST Alkaline Phosphatase Magnesium Lactate Dehydrogenase Total Creatine Kinase CK-MB (CK-2) C-Reactive Protein Total Protein Albumin Troponin T HDL Cholesterol Arterial Blood Glucose Urine WBC (Auto) Urine Creatinine Urine Total Protein Phenytoin Coronavirus (PCR) Crossmatch 06/13/20 06/13/20 06/14/20 21:17 23:50 05:34 WBC RBC Hgb Hct MCHC RDW Lymph % (Auto) [place] % (Auto) Eos % (Auto) Lymph # [place] # Lymph # (Auto) [place] # (Auto) Eos # (Auto) Seg Neutrophils % Seg Neuts % (Manual) Lymphocytes % (Manual) Seg Neutrophils # Seg Neutrophils # Man Lymphocytes # (Manual) Monocytes % (Manual) Eosinophils % (Manual) Monocytes # (Manual) Eosinophils # (Manual) D-Dimer Heparin Anti-Xa Level 0.72 H ABG pH POC ABG pCO2 POC ABG pO2 ABG pO2 ABG HCO3 ABG O2 Saturation ABG Base Excess ABG Hemoglobin ABG Oxyhemoglobin VBG pH ABG Sodium ABG Potassium ABG Glucose Oxyhemoglobin Sodium 146 H Potassium Chloride 107.6 H Carbon Dioxide BUN 61 H Creatinine 1.3 H Glucose 135 H POC Glucose 146 H Lactic Acid Calcium Ferritin AST Alkaline Phosphatase Magnesium Lactate Dehydrogenase Total Creatine Kinase CK-MB (CK-2) C-Reactive Protein Total Protein Albumin Troponin T HDL Cholesterol Arterial Blood Glucose Urine WBC (Auto) Urine Creatinine Urine Total Protein Phenytoin Coronavirus (PCR) Crossmatch 06/14/20 06/14/20 06/14/20 06:11 09:28 11:30 WBC RBC Hgb Hct MCHC RDW Lymph % (Auto) [place] % (Auto) Eos % (Auto) Lymph # [place] # Lymph # (Auto) [place] # (Auto) Eos # (Auto) Seg Neutrophils % Seg Neuts % (Manual) Lymphocytes % (Manual) Seg Neutrophils # Seg Neutrophils # Man Lymphocytes # (Manual) Monocytes % (Manual) Eosinophils % (Manual) Monocytes # (Manual) Eosinophils # (Manual) D-Dimer Heparin Anti-Xa Level 0.90 H ABG pH POC ABG pCO2 POC ABG pO2 ABG pO2 ABG HCO3 ABG O2 Saturation ABG Base Excess ABG Hemoglobin ABG Oxyhemoglobin VBG pH ABG Sodium ABG Potassium ABG Glucose Oxyhemoglobin Sodium Potassium Chloride Carbon Dioxide BUN Creatinine Glucose POC Glucose 141 H 186 H Lactic Acid Calcium Ferritin AST Alkaline Phosphatase Magnesium Lactate Dehydrogenase Total Creatine Kinase CK-MB (CK-2) C-Reactive Protein Total Protein Albumin Troponin T HDL Cholesterol Arterial Blood Glucose Urine WBC (Auto) Urine Creatinine Urine Total Protein Phenytoin Coronavirus (PCR) Crossmatch 06/14/20 06/14/20 06/14/20 16:07 18:16 23:51 WBC RBC Hgb Hct MCHC RDW Lymph % (Auto) [place] % (Auto) Eos % (Auto) Lymph # [place] # Lymph # (Auto) [place] # (Auto) Eos # (Auto) Seg Neutrophils % Seg Neuts % (Manual) Lymphocytes % (Manual) Seg Neutrophils # Seg Neutrophils # Man Lymphocytes # (Manual) Monocytes % (Manual) Eosinophils % (Manual) Monocytes # (Manual) Eosinophils # (Manual) D-Dimer Heparin Anti-Xa Level 0.82 H ABG pH POC ABG pCO2 POC ABG pO2 ABG pO2 ABG HCO3 ABG O2 Saturation ABG Base Excess ABG Hemoglobin ABG Oxyhemoglobin VBG pH ABG Sodium ABG Potassium ABG Glucose Oxyhemoglobin Sodium Potassium Chloride Carbon Dioxide BUN Creatinine Glucose POC Glucose 106 H 154 H Lactic Acid Calcium Ferritin AST Alkaline Phosphatase Magnesium Lactate Dehydrogenase Total Creatine Kinase CK-MB (CK-2) C-Reactive Protein Total Protein Albumin Troponin T HDL Cholesterol Arterial Blood Glucose Urine WBC (Auto) Urine Creatinine Urine Total Protein Phenytoin Coronavirus (PCR) Crossmatch 06/15/20 06/15/20 06/15/20 04:24 04:24 05:59 WBC RBC 2.75 L Hgb 7.9 L Hct 24.0 L MCHC RDW 16.4 H Lymph % (Auto) 12.9 L [place] % (Auto) 8.7 H Eos % (Auto) 4.6 H Lymph # 1.1 L [place] # Lymph # (Auto) [place] # (Auto) Eos # (Auto) Seg Neutrophils % 73.2 H Seg Neuts % (Manual) Lymphocytes % (Manual) Seg Neutrophils # Seg Neutrophils # Man Lymphocytes # (Manual) Monocytes % (Manual) Eosinophils % (Manual) Monocytes # (Manual) Eosinophils # (Manual) D-Dimer Heparin Anti-Xa Level ABG pH POC ABG pCO2 POC ABG pO2 ABG pO2 ABG HCO3 ABG O2 Saturation ABG Base Excess ABG Hemoglobin ABG Oxyhemoglobin VBG pH ABG Sodium ABG Potassium ABG Glucose Oxyhemoglobin Sodium Potassium 3.4 L Chloride Carbon Dioxide BUN 55 H Creatinine 1.3 H Glucose 142 H POC Glucose 131 H Lactic Acid Calcium Ferritin AST Alkaline Phosphatase Magnesium Lactate Dehydrogenase Total Creatine Kinase CK-MB (CK-2) C-Reactive Protein Total Protein Albumin Troponin T HDL Cholesterol Arterial Blood Glucose Urine WBC (Auto) Urine Creatinine Urine Total Protein Phenytoin Coronavirus (PCR) Crossmatch 06/15/20 06/15/20 06/16/20 12:33 17:07 00:22 WBC RBC Hgb Hct MCHC RDW Lymph % (Auto) [place] % (Auto) Eos % (Auto) Lymph # [place] # Lymph # (Auto) [place] # (Auto) Eos # (Auto) Seg Neutrophils % Seg Neuts % (Manual) Lymphocytes % (Manual) Seg Neutrophils # Seg Neutrophils # Man Lymphocytes # (Manual) Monocytes % (Manual) Eosinophils % (Manual) Monocytes # (Manual) Eosinophils # (Manual) D-Dimer Heparin Anti-Xa Level 0.21 L ABG pH POC ABG pCO2 POC ABG pO2 ABG pO2 ABG HCO3 ABG O2 Saturation ABG Base Excess ABG Hemoglobin ABG Oxyhemoglobin VBG pH ABG Sodium ABG Potassium ABG Glucose Oxyhemoglobin Sodium Potassium Chloride Carbon Dioxide BUN Creatinine Glucose POC Glucose 180 H 185 H Lactic Acid Calcium Ferritin AST Alkaline Phosphatase Magnesium Lactate Dehydrogenase Total Creatine Kinase CK-MB (CK-2) C-Reactive Protein Total Protein Albumin Troponin T HDL Cholesterol Arterial Blood Glucose Urine WBC (Auto) Urine Creatinine Urine Total Protein Phenytoin Coronavirus (PCR) Crossmatch 06/16/20 06/16/20 06/16/20 01:45 08:06 09:15 WBC RBC Hgb Hct MCHC RDW Lymph % (Auto) [place] % (Auto) Eos % (Auto) Lymph # [place] # Lymph # (Auto) [place] # (Auto) Eos # (Auto) Seg Neutrophils % Seg Neuts % (Manual) Lymphocytes % (Manual) Seg Neutrophils # Seg Neutrophils # Man Lymphocytes # (Manual) Monocytes % (Manual) Eosinophils % (Manual) Monocytes # (Manual) Eosinophils # (Manual) D-Dimer Heparin Anti-Xa Level ABG pH POC ABG pCO2 POC ABG pO2 ABG pO2 ABG HCO3 ABG O2 Saturation ABG Base Excess ABG Hemoglobin ABG Oxyhemoglobin VBG pH ABG Sodium ABG Potassium ABG Glucose Oxyhemoglobin Sodium Potassium Chloride Carbon Dioxide BUN 49 H Creatinine Glucose 154 H POC Glucose 140 H 171 H Lactic Acid Calcium Ferritin AST Alkaline Phosphatase Magnesium Lactate Dehydrogenase Total Creatine Kinase CK-MB (CK-2) C-Reactive Protein Total Protein Albumin Troponin T HDL Cholesterol Arterial Blood Glucose Urine WBC (Auto) Urine Creatinine Urine Total Protein Phenytoin Coronavirus (PCR) Crossmatch 06/16/20 06/16/20 06/16/20 10:46 12:33 17:54 WBC RBC Hgb Hct MCHC RDW Lymph % (Auto) [place] % (Auto) Eos % (Auto) Lymph # [place] # Lymph # (Auto) [place] # (Auto) Eos # (Auto) Seg Neutrophils % Seg Neuts % (Manual) Lymphocytes % (Manual) Seg Neutrophils # Seg Neutrophils # Man Lymphocytes # (Manual) Monocytes % (Manual) Eosinophils % (Manual) Monocytes # (Manual) Eosinophils # (Manual) D-Dimer Heparin Anti-Xa Level 0.12 L ABG pH POC ABG pCO2 POC ABG pO2 ABG pO2 ABG HCO3 ABG O2 Saturation ABG Base Excess ABG Hemoglobin ABG Oxyhemoglobin VBG pH ABG Sodium ABG Potassium ABG Glucose Oxyhemoglobin Sodium Potassium Chloride Carbon Dioxide BUN Creatinine Glucose POC Glucose 166 H 151 H Lactic Acid Calcium Ferritin AST Alkaline Phosphatase Magnesium Lactate Dehydrogenase Total Creatine Kinase CK-MB (CK-2) C-Reactive Protein Total Protein Albumin Troponin T HDL Cholesterol Arterial Blood Glucose Urine WBC (Auto) Urine Creatinine Urine Total Protein Phenytoin Coronavirus (PCR) Crossmatch 06/16/20 06/17/20 06/17/20 18:47 00:00 02:19 WBC RBC Hgb Hct MCHC RDW Lymph % (Auto) [place] % (Auto) Eos % (Auto) Lymph # [place] # Lymph # (Auto) [place] # (Auto) Eos # (Auto) Seg Neutrophils % Seg Neuts % (Manual) Lymphocytes % (Manual) Seg Neutrophils # Seg Neutrophils # Man Lymphocytes # (Manual) Monocytes % (Manual) Eosinophils % (Manual) Monocytes # (Manual) Eosinophils # (Manual) D-Dimer Heparin Anti-Xa Level 0.73 H 0.77 H ABG pH POC ABG pCO2 POC ABG pO2 ABG pO2 ABG HCO3 ABG O2 Saturation ABG Base Excess ABG Hemoglobin ABG Oxyhemoglobin VBG pH ABG Sodium ABG Potassium ABG Glucose Oxyhemoglobin Sodium Potassium Chloride Carbon Dioxide BUN Creatinine Glucose POC Glucose 139 H Lactic Acid Calcium Ferritin AST Alkaline Phosphatase Magnesium Lactate Dehydrogenase Total Creatine Kinase CK-MB (CK-2) C-Reactive Protein Total Protein Albumin Troponin T HDL Cholesterol Arterial Blood Glucose Urine WBC (Auto) Urine Creatinine Urine Total Protein Phenytoin Coronavirus (PCR) Crossmatch 06/17/20 06/17/20 06/17/20 06:07 11:42 16:43 WBC RBC Hgb Hct MCHC RDW Lymph % (Auto) [place] % (Auto) Eos % (Auto) Lymph # [place] # Lymph # (Auto) [place] # (Auto) Eos # (Auto) Seg Neutrophils % Seg Neuts % (Manual) Lymphocytes % (Manual) Seg Neutrophils # Seg Neutrophils # Man Lymphocytes # (Manual) Monocytes % (Manual) Eosinophils % (Manual) Monocytes # (Manual) Eosinophils # (Manual) D-Dimer Heparin Anti-Xa Level 0.73 H ABG pH POC ABG pCO2 POC ABG pO2 ABG pO2 ABG HCO3 ABG O2 Saturation ABG Base Excess ABG Hemoglobin ABG Oxyhemoglobin VBG pH ABG Sodium ABG Potassium ABG Glucose Oxyhemoglobin Sodium Potassium Chloride Carbon Dioxide BUN Creatinine Glucose POC Glucose 169 H 169 H Lactic Acid Calcium Ferritin AST Alkaline Phosphatase Magnesium Lactate Dehydrogenase Total Creatine Kinase CK-MB (CK-2) C-Reactive Protein Total Protein Albumin Troponin T HDL Cholesterol Arterial Blood Glucose Urine WBC (Auto) Urine Creatinine Urine Total Protein Phenytoin Coronavirus (PCR) Crossmatch 06/17/20 06/17/20 06/17/20 18:18 23:08 23:16 WBC RBC Hgb Hct MCHC RDW Lymph % (Auto) [place] % (Auto) Eos % (Auto) Lymph # [place] # Lymph # (Auto) [place] # (Auto) Eos # (Auto) Seg Neutrophils % Seg Neuts % (Manual) Lymphocytes % (Manual) Seg Neutrophils # Seg Neutrophils # Man Lymphocytes # (Manual) Monocytes % (Manual) Eosinophils % (Manual) Monocytes # (Manual) Eosinophils # (Manual) D-Dimer Heparin Anti-Xa Level 0.71 H ABG pH POC ABG pCO2 POC ABG pO2 ABG pO2 ABG HCO3 ABG O2 Saturation ABG Base Excess ABG Hemoglobin ABG Oxyhemoglobin VBG pH ABG Sodium ABG Potassium ABG Glucose Oxyhemoglobin Sodium Potassium Chloride Carbon Dioxide BUN Creatinine Glucose POC Glucose 159 H 134 H Lactic Acid Calcium Ferritin AST Alkaline Phosphatase Magnesium Lactate Dehydrogenase Total Creatine Kinase CK-MB (CK-2) C-Reactive Protein Total Protein Albumin Troponin T HDL Cholesterol Arterial Blood Glucose Urine WBC (Auto) Urine Creatinine Urine Total Protein Phenytoin Coronavirus (PCR) Crossmatch 06/18/20 06/18/20 06/18/20 04:42 05:52 11:50 WBC RBC Hgb Hct MCHC RDW Lymph % (Auto) [place] % (Auto) Eos % (Auto) Lymph # [place] # Lymph # (Auto) [place] # (Auto) Eos # (Auto) Seg Neutrophils % Seg Neuts % (Manual) Lymphocytes % (Manual) Seg Neutrophils # Seg Neutrophils # Man Lymphocytes # (Manual) Monocytes % (Manual) Eosinophils % (Manual) Monocytes # (Manual) Eosinophils # (Manual) D-Dimer Heparin Anti-Xa Level ABG pH POC ABG pCO2 POC ABG pO2 ABG pO2 ABG HCO3 ABG O2 Saturation ABG Base Excess ABG Hemoglobin ABG Oxyhemoglobin VBG pH ABG Sodium ABG Potassium ABG Glucose Oxyhemoglobin Sodium Potassium Chloride Carbon Dioxide BUN 44 H Creatinine Glucose 115 H POC Glucose 171 H 167 H Lactic Acid Calcium Ferritin AST Alkaline Phosphatase Magnesium Lactate Dehydrogenase Total Creatine Kinase CK-MB (CK-2) C-Reactive Protein Total Protein Albumin Troponin T HDL Cholesterol Arterial Blood Glucose Urine WBC (Auto) Urine Creatinine Urine Total Protein Phenytoin Coronavirus (PCR) Crossmatch 06/18/20 06/19/20 06/19/20 23:46 05:48 07:52 WBC RBC Hgb Hct MCHC RDW Lymph % (Auto) [place] % (Auto) Eos % (Auto) Lymph # [place] # Lymph # (Auto) [place] # (Auto) Eos # (Auto) Seg Neutrophils % Seg Neuts % (Manual) Lymphocytes % (Manual) Seg Neutrophils # Seg Neutrophils # Man Lymphocytes # (Manual) Monocytes % (Manual) Eosinophils % (Manual) Monocytes # (Manual) Eosinophils # (Manual) D-Dimer Heparin Anti-Xa Level ABG pH POC ABG pCO2 POC ABG pO2 ABG pO2 ABG HCO3 ABG O2 Saturation ABG Base Excess ABG Hemoglobin ABG Oxyhemoglobin VBG pH ABG Sodium ABG Potassium ABG Glucose Oxyhemoglobin Sodium Potassium Chloride Carbon Dioxide BUN Creatinine Glucose POC Glucose 130 H 207 H 175 H Lactic Acid Calcium Ferritin AST Alkaline Phosphatase Magnesium Lactate Dehydrogenase Total Creatine Kinase CK-MB (CK-2) C-Reactive Protein Total Protein Albumin Troponin T HDL Cholesterol Arterial Blood Glucose Urine WBC (Auto) Urine Creatinine Urine Total Protein Phenytoin Coronavirus (PCR) Crossmatch 06/19/20 06/19/20 06/20/20 11:42 22:54 05:17 WBC RBC Hgb Hct MCHC RDW Lymph % (Auto) [place] % (Auto) Eos % (Auto) Lymph # [place] # Lymph # (Auto) [place] # (Auto) Eos # (Auto) Seg Neutrophils % Seg Neuts % (Manual) Lymphocytes % (Manual) Seg Neutrophils # Seg Neutrophils # Man Lymphocytes # (Manual) Monocytes % (Manual) Eosinophils % (Manual) Monocytes # (Manual) Eosinophils # (Manual) D-Dimer Heparin Anti-Xa Level ABG pH POC ABG pCO2 POC ABG pO2 ABG pO2 ABG HCO3 ABG O2 Saturation ABG Base Excess ABG Hemoglobin ABG Oxyhemoglobin VBG pH ABG Sodium ABG Potassium ABG Glucose Oxyhemoglobin Sodium Potassium Chloride Carbon Dioxide BUN Creatinine Glucose POC Glucose 166 H 135 H 218 H Lactic Acid Calcium Ferritin AST Alkaline Phosphatase Magnesium Lactate Dehydrogenase Total Creatine Kinase CK-MB (CK-2) C-Reactive Protein Total Protein Albumin Troponin T HDL Cholesterol Arterial Blood Glucose Urine WBC (Auto) Urine Creatinine Urine Total Protein Phenytoin Coronavirus (PCR) Crossmatch 06/20/20 06/20/20 06/20/20 12:04 16:25 16:35 WBC RBC Hgb Hct MCHC RDW Lymph % (Auto) [place] % (Auto) Eos % (Auto) Lymph # [place] # Lymph # (Auto) [place] # (Auto) Eos # (Auto) Seg Neutrophils % Seg Neuts % (Manual) Lymphocytes % (Manual) Seg Neutrophils # Seg Neutrophils # Man Lymphocytes # (Manual) Monocytes % (Manual) Eosinophils % (Manual) Monocytes # (Manual) Eosinophils # (Manual) D-Dimer Heparin Anti-Xa Level ABG pH POC ABG pCO2 POC ABG pO2 ABG pO2 59.6 L ABG HCO3 28.7 H ABG O2 Saturation 93.5 L ABG Base Excess 3.4 H ABG Hemoglobin 7.2 L ABG Oxyhemoglobin VBG pH ABG Sodium ABG Potassium ABG Glucose Oxyhemoglobin 91.3 L Sodium Potassium Chloride Carbon Dioxide BUN Creatinine Glucose POC Glucose 194 H 137 H Lactic Acid Calcium Ferritin AST Alkaline Phosphatase Magnesium Lactate Dehydrogenase Total Creatine Kinase CK-MB (CK-2) C-Reactive Protein Total Protein Albumin Troponin T HDL Cholesterol Arterial Blood Glucose Urine WBC (Auto) Urine Creatinine Urine Total Protein Phenytoin Coronavirus (PCR) Crossmatch 06/20/20 06/21/20 06/21/20 23:59 06:25 12:01 WBC RBC Hgb Hct MCHC RDW Lymph % (Auto) [place] % (Auto) Eos % (Auto) Lymph # [place] # Lymph # (Auto) [place] # (Auto) Eos # (Auto) Seg Neutrophils % Seg Neuts % (Manual) Lymphocytes % (Manual) Seg Neutrophils # Seg Neutrophils # Man Lymphocytes # (Manual) Monocytes % (Manual) Eosinophils % (Manual) Monocytes # (Manual) Eosinophils # (Manual) D-Dimer Heparin Anti-Xa Level ABG pH POC ABG pCO2 POC ABG pO2 ABG pO2 ABG HCO3 ABG O2 Saturation ABG Base Excess ABG Hemoglobin ABG Oxyhemoglobin VBG pH ABG Sodium ABG Potassium ABG Glucose Oxyhemoglobin Sodium Potassium Chloride Carbon Dioxide BUN Creatinine Glucose POC Glucose 156 H 177 H 195 H Lactic Acid Calcium Ferritin AST Alkaline Phosphatase Magnesium Lactate Dehydrogenase Total Creatine Kinase CK-MB (CK-2) C-Reactive Protein Total Protein Albumin Troponin T HDL Cholesterol Arterial Blood Glucose Urine WBC (Auto) Urine Creatinine Urine Total Protein Phenytoin Coronavirus (PCR) Crossmatch 06/21/20 06/21/20 06/22/20 17:04 21:51 05:06 WBC RBC Hgb Hct MCHC RDW Lymph % (Auto) [place] % (Auto) Eos % (Auto) Lymph # [place] # Lymph # (Auto) [place] # (Auto) Eos # (Auto) Seg Neutrophils % Seg Neuts % (Manual) Lymphocytes % (Manual) Seg Neutrophils # Seg Neutrophils # Man Lymphocytes # (Manual) Monocytes % (Manual) Eosinophils % (Manual) Monocytes # (Manual) Eosinophils # (Manual) D-Dimer Heparin Anti-Xa Level ABG pH POC ABG pCO2 POC ABG pO2 ABG pO2 ABG HCO3 ABG O2 Saturation ABG Base Excess ABG Hemoglobin ABG Oxyhemoglobin VBG pH ABG Sodium ABG Potassium ABG Glucose Oxyhemoglobin Sodium Potassium Chloride Carbon Dioxide BUN Creatinine Glucose POC Glucose 156 H 154 H 167 H Lactic Acid Calcium Ferritin AST Alkaline Phosphatase Magnesium Lactate Dehydrogenase Total Creatine Kinase CK-MB (CK-2) C-Reactive Protein Total Protein Albumin Troponin T HDL Cholesterol Arterial Blood Glucose Urine WBC (Auto) Urine Creatinine Urine Total Protein Phenytoin Coronavirus (PCR) Crossmatch 06/22/20 06/22/20 06/22/20 11:20 15:27 16:58 WBC RBC Hgb Hct MCHC RDW Lymph % (Auto) [place] % (Auto) Eos % (Auto) Lymph # [place] # Lymph # (Auto) [place] # (Auto) Eos # (Auto) Seg Neutrophils % Seg Neuts % (Manual) Lymphocytes % (Manual) Seg Neutrophils # Seg Neutrophils # Man Lymphocytes # (Manual) Monocytes % (Manual) Eosinophils % (Manual) Monocytes # (Manual) Eosinophils # (Manual) D-Dimer Heparin Anti-Xa Level ABG pH 7.206 L POC ABG pCO2 79.9 H POC ABG pO2 ABG pO2 ABG HCO3 ABG O2 Saturation ABG Base Excess ABG Hemoglobin 8.3 L ABG Oxyhemoglobin VBG pH ABG Sodium ABG Potassium ABG Glucose Oxyhemoglobin Sodium Potassium Chloride Carbon Dioxide BUN Creatinine Glucose POC Glucose 181 H 230 H Lactic Acid Calcium Ferritin AST Alkaline Phosphatase Magnesium Lactate Dehydrogenase Total Creatine Kinase CK-MB (CK-2) C-Reactive Protein Total Protein Albumin Troponin T HDL Cholesterol Arterial Blood Glucose Urine WBC (Auto) Urine Creatinine Urine Total Protein Phenytoin Coronavirus (PCR) Crossmatch 06/22/20 06/23/20 06/23/20 22:26 05:49 05:49 WBC RBC 2.58 L Hgb 7.4 L Hct 23.2 L MCHC RDW 17.0 H Lymph % (Auto) [place] % (Auto) 11.2 H Eos % (Auto) Lymph # 1.0 L [place] # Lymph # (Auto) [place] # (Auto) Eos # (Auto) Seg Neutrophils % Seg Neuts % (Manual) Lymphocytes % (Manual) Seg Neutrophils # Seg Neutrophils # Man Lymphocytes # (Manual) Monocytes % (Manual) Eosinophils % (Manual) Monocytes # (Manual) Eosinophils # (Manual) D-Dimer Heparin Anti-Xa Level ABG pH POC ABG pCO2 POC ABG pO2 ABG pO2 ABG HCO3 ABG O2 Saturation ABG Base Excess ABG Hemoglobin ABG Oxyhemoglobin VBG pH ABG Sodium ABG Potassium ABG Glucose Oxyhemoglobin Sodium Potassium Chloride Carbon Dioxide BUN 68 H Creatinine 2.4 H Glucose 198 H POC Glucose 195 H Lactic Acid Calcium Ferritin AST Alkaline Phosphatase Magnesium Lactate Dehydrogenase Total Creatine Kinase CK-MB (CK-2) C-Reactive Protein Total Protein Albumin Troponin T HDL Cholesterol Arterial Blood Glucose Urine WBC (Auto) Urine Creatinine Urine Total Protein Phenytoin Coronavirus (PCR) Crossmatch 06/23/20 06/23/20 06/23/20 05:50 12:29 12:34 WBC RBC Hgb Hct MCHC RDW Lymph % (Auto) [place] % (Auto) Eos % (Auto) Lymph # [place] # Lymph # (Auto) [place] # (Auto) Eos # (Auto) Seg Neutrophils % Seg Neuts % (Manual) Lymphocytes % (Manual) Seg Neutrophils # Seg Neutrophils # Man Lymphocytes # (Manual) Monocytes % (Manual) Eosinophils % (Manual) Monocytes # (Manual) Eosinophils # (Manual) D-Dimer Heparin Anti-Xa Level ABG pH POC ABG pCO2 54.7 H POC ABG pO2 68.8 L ABG pO2 ABG HCO3 ABG O2 Saturation ABG Base Excess ABG Hemoglobin 9.8 L ABG Oxyhemoglobin 92.6 L VBG pH ABG Sodium ABG Potassium ABG Glucose Oxyhemoglobin Sodium Potassium Chloride Carbon Dioxide BUN Creatinine Glucose POC Glucose 202 H 218 H Lactic Acid Calcium Ferritin AST Alkaline Phosphatase Magnesium Lactate Dehydrogenase Total Creatine Kinase CK-MB (CK-2) C-Reactive Protein Total Protein Albumin Troponin T HDL Cholesterol Arterial Blood Glucose Urine WBC (Auto) Urine Creatinine Urine Total Protein Phenytoin Coronavirus (PCR) Crossmatch 06/23/20 06/23/20 06/24/20 16:02 22:22 01:06 WBC RBC Hgb Hct MCHC RDW Lymph % (Auto) [place] % (Auto) Eos % (Auto) Lymph # [place] # Lymph # (Auto) [place] # (Auto) Eos # (Auto) Seg Neutrophils % Seg Neuts % (Manual) Lymphocytes % (Manual) Seg Neutrophils # Seg Neutrophils # Man Lymphocytes # (Manual) Monocytes % (Manual) Eosinophils % (Manual) Monocytes # (Manual) Eosinophils # (Manual) D-Dimer Heparin Anti-Xa Level ABG pH POC ABG pCO2 POC ABG pO2 ABG pO2 ABG HCO3 ABG O2 Saturation ABG Base Excess ABG Hemoglobin ABG Oxyhemoglobin VBG pH ABG Sodium ABG Potassium ABG Glucose Oxyhemoglobin Sodium Potassium Chloride Carbon Dioxide BUN Creatinine Glucose POC Glucose 190 H 166 H 171 H Lactic Acid Calcium Ferritin AST Alkaline Phosphatase Magnesium Lactate Dehydrogenase Total Creatine Kinase CK-MB (CK-2) C-Reactive Protein Total Protein Albumin Troponin T HDL Cholesterol Arterial Blood Glucose Urine WBC (Auto) Urine Creatinine Urine Total Protein Phenytoin Coronavirus (PCR) Crossmatch 06/24/20 06/24/20 06/24/20 04:48 05:35 11:48 WBC RBC Hgb Hct MCHC RDW Lymph % (Auto) [place] % (Auto) Eos % (Auto) Lymph # [place] # Lymph # (Auto) [place] # (Auto) Eos # (Auto) Seg Neutrophils % Seg Neuts % (Manual) Lymphocytes % (Manual) Seg Neutrophils # Seg Neutrophils # Man Lymphocytes # (Manual) Monocytes % (Manual) Eosinophils % (Manual) Monocytes # (Manual) Eosinophils # (Manual) D-Dimer Heparin Anti-Xa Level ABG pH POC ABG pCO2 POC ABG pO2 ABG pO2 ABG HCO3 ABG O2 Saturation ABG Base Excess ABG Hemoglobin ABG Oxyhemoglobin VBG pH ABG Sodium ABG Potassium ABG Glucose Oxyhemoglobin Sodium Potassium Chloride Carbon Dioxide BUN 75 H Creatinine 2.6 H Glucose 179 H POC Glucose 172 H 153 H Lactic Acid Calcium Ferritin AST Alkaline Phosphatase Magnesium Lactate Dehydrogenase Total Creatine Kinase CK-MB (CK-2) C-Reactive Protein Total Protein Albumin Troponin T HDL Cholesterol Arterial Blood Glucose Urine WBC (Auto) Urine Creatinine Urine Total Protein Phenytoin Coronavirus (PCR) Crossmatch 06/24/20 06/24/20 06/25/20 16:38 21:52 12:00 WBC RBC Hgb Hct MCHC RDW Lymph % (Auto) [place] % (Auto) Eos % (Auto) Lymph # [place] # Lymph # (Auto) [place] # (Auto) Eos # (Auto) Seg Neutrophils % Seg Neuts % (Manual) Lymphocytes % (Manual) Seg Neutrophils # Seg Neutrophils # Man Lymphocytes # (Manual) Monocytes % (Manual) Eosinophils % (Manual) Monocytes # (Manual) Eosinophils # (Manual) D-Dimer Heparin Anti-Xa Level ABG pH POC ABG pCO2 POC ABG pO2 ABG pO2 ABG HCO3 ABG O2 Saturation ABG Base Excess ABG Hemoglobin ABG Oxyhemoglobin VBG pH ABG Sodium ABG Potassium ABG Glucose Oxyhemoglobin Sodium Potassium Chloride Carbon Dioxide BUN Creatinine Glucose POC Glucose 123 H 115 H 203 H Lactic Acid Calcium Ferritin AST Alkaline Phosphatase Magnesium Lactate Dehydrogenase Total Creatine Kinase CK-MB (CK-2) C-Reactive Protein Total Protein Albumin Troponin T HDL Cholesterol Arterial Blood Glucose Urine WBC (Auto) Urine Creatinine Urine Total Protein Phenytoin Coronavirus (PCR) Crossmatch 06/25/20 06/25/20 06/25/20 15:43 16:37 23:02 WBC RBC Hgb Hct MCHC RDW Lymph % (Auto) [place] % (Auto) Eos % (Auto) Lymph # [place] # Lymph # (Auto) [place] # (Auto) Eos # (Auto) Seg Neutrophils % Seg Neuts % (Manual) Lymphocytes % (Manual) Seg Neutrophils # Seg Neutrophils # Man Lymphocytes # (Manual) Monocytes % (Manual) Eosinophils % (Manual) Monocytes # (Manual) Eosinophils # (Manual) D-Dimer Heparin Anti-Xa Level ABG pH POC ABG pCO2 POC ABG pO2 ABG pO2 ABG HCO3 ABG O2 Saturation ABG Base Excess ABG Hemoglobin ABG Oxyhemoglobin VBG pH ABG Sodium ABG Potassium ABG Glucose Oxyhemoglobin Sodium Potassium Chloride Carbon Dioxide BUN 71 H Creatinine 1.8 H Glucose 170 H POC Glucose 191 H 126 H Lactic Acid Calcium 8.2 L Ferritin AST Alkaline Phosphatase Magnesium Lactate Dehydrogenase Total Creatine Kinase CK-MB (CK-2) C-Reactive Protein Total Protein Albumin Troponin T HDL Cholesterol Arterial Blood Glucose Urine WBC (Auto) Urine Creatinine Urine Total Protein Phenytoin Coronavirus (PCR) Crossmatch 06/26/20 06/26/20 06/26/20 06:34 06:34 09:27 WBC RBC 2.41 L Hgb 6.9 L Hct 21.5 L MCHC RDW 16.7 H Lymph % (Auto) 10.9 L [place] % (Auto) 9.6 H Eos % (Auto) Lymph # 0.7 L [place] # Lymph # (Auto) [place] # (Auto) Eos # (Auto) Seg Neutrophils % 75.4 H Seg Neuts % (Manual) Lymphocytes % (Manual) Seg Neutrophils # Seg Neutrophils # Man Lymphocytes # (Manual) Monocytes % (Manual) Eosinophils % (Manual) Monocytes # (Manual) Eosinophils # (Manual) D-Dimer Heparin Anti-Xa Level ABG pH POC ABG pCO2 POC ABG pO2 ABG pO2 ABG HCO3 ABG O2 Saturation ABG Base Excess ABG Hemoglobin ABG Oxyhemoglobin VBG pH ABG Sodium ABG Potassium ABG Glucose Oxyhemoglobin Sodium Potassium Chloride Carbon Dioxide BUN 77 H Creatinine 1.9 H Glucose 190 H POC Glucose Lactic Acid Calcium Ferritin AST Alkaline Phosphatase Magnesium Lactate Dehydrogenase Total Creatine Kinase CK-MB (CK-2) C-Reactive Protein Total Protein Albumin Troponin T HDL Cholesterol Arterial Blood Glucose Urine WBC (Auto) Urine Creatinine Urine Total Protein Phenytoin Coronavirus (PCR) Crossmatch See Detail 06/26/20 06/26/20 06/26/20 12:15 16:28 17:28 WBC RBC Hgb Hct MCHC RDW Lymph % (Auto) [place] % (Auto) Eos % (Auto) Lymph # [place] # Lymph # (Auto) [place] # (Auto) Eos # (Auto) Seg Neutrophils % Seg Neuts % (Manual) Lymphocytes % (Manual) Seg Neutrophils # Seg Neutrophils # Man Lymphocytes # (Manual) Monocytes % (Manual) Eosinophils % (Manual) Monocytes # (Manual) Eosinophils # (Manual) D-Dimer Heparin Anti-Xa Level ABG pH POC ABG pCO2 POC ABG pO2 ABG pO2 ABG HCO3 ABG O2 Saturation ABG Base Excess ABG Hemoglobin ABG Oxyhemoglobin VBG pH ABG Sodium ABG Potassium ABG Glucose Oxyhemoglobin Sodium Potassium Chloride Carbon Dioxide BUN Creatinine Glucose POC Glucose 187 H 149 H 189 H Lactic Acid Calcium Ferritin AST Alkaline Phosphatase Magnesium Lactate Dehydrogenase Total Creatine Kinase CK-MB (CK-2) C-Reactive Protein Total Protein Albumin Troponin T HDL Cholesterol Arterial Blood Glucose Urine WBC (Auto) Urine Creatinine Urine Total Protein Phenytoin Coronavirus (PCR) Crossmatch 06/26/20 06/26/20 06/26/20 18:30 18:30 18:30 WBC RBC 2.87 L Hgb 8.2 L Hct 25.9 L MCHC RDW 17.8 H Lymph % (Auto) [place] % (Auto) Eos % (Auto) Lymph # [place] # Lymph # (Auto) [place] # (Auto) Eos # (Auto) Seg Neutrophils % Seg Neuts % (Manual) 83.0 H Lymphocytes % (Manual) 8.0 L Seg Neutrophils # Seg Neutrophils # Man Lymphocytes # (Manual) 0.6 L Monocytes % (Manual) Eosinophils % (Manual) Monocytes # (Manual) Eosinophils # (Manual) D-Dimer Heparin Anti-Xa Level ABG pH POC ABG pCO2 POC ABG pO2 ABG pO2 ABG HCO3 ABG O2 Saturation ABG Base Excess ABG Hemoglobin ABG Oxyhemoglobin VBG pH ABG Sodium ABG Potassium ABG Glucose Oxyhemoglobin Sodium Potassium Chloride Carbon Dioxide BUN 80 H Creatinine 2.1 H Glucose 260 H POC Glucose Lactic Acid 4.30 H* Calcium 8.3 L Ferritin AST Alkaline Phosphatase Magnesium Lactate Dehydrogenase Total Creatine Kinase CK-MB (CK-2) C-Reactive Protein Total Protein Albumin Troponin T HDL Cholesterol Arterial Blood Glucose Urine WBC (Auto) Urine Creatinine Urine Total Protein Phenytoin Coronavirus (PCR) Crossmatch 06/26/20 06/27/20 06/27/20 18:50 01:00 04:29 WBC RBC Hgb Hct MCHC RDW Lymph % (Auto) [place] % (Auto) Eos % (Auto) Lymph # [place] # Lymph # (Auto) [place] # (Auto) Eos # (Auto) Seg Neutrophils % Seg Neuts % (Manual) Lymphocytes % (Manual) Seg Neutrophils # Seg Neutrophils # Man Lymphocytes # (Manual) Monocytes % (Manual) Eosinophils % (Manual) Monocytes # (Manual) Eosinophils # (Manual) D-Dimer Heparin Anti-Xa Level ABG pH 7.296 L POC ABG pCO2 POC ABG pO2 ABG pO2 116.5 H 200.5 H ABG HCO3 28.4 H ABG O2 Saturation 99.3 H ABG Base Excess 3.7 H ABG Hemoglobin 5.6 L ABG Oxyhemoglobin VBG pH ABG Sodium ABG Potassium ABG Glucose Oxyhemoglobin Sodium Potassium Chloride Carbon Dioxide BUN Creatinine Glucose POC Glucose 123 H Lactic Acid Calcium Ferritin AST Alkaline Phosphatase Magnesium Lactate Dehydrogenase Total Creatine Kinase CK-MB (CK-2) C-Reactive Protein Total Protein Albumin Troponin T HDL Cholesterol Arterial Blood Glucose Urine WBC (Auto) Urine Creatinine Urine Total Protein Phenytoin Coronavirus (PCR) Crossmatch 06/27/20 06/27/20 06/27/20 05:00 05:00 05:00 WBC RBC 2.75 L Hgb 7.9 L Hct 24.3 L MCHC RDW 17.1 H Lymph % (Auto) 8.5 L [place] % (Auto) 12.6 H Eos % (Auto) Lymph # 0.7 L [place] # 1.0 H Lymph # (Auto) [place] # (Auto) Eos # (Auto) Seg Neutrophils % 77.5 H Seg Neuts % (Manual) Lymphocytes % (Manual) Seg Neutrophils # Seg Neutrophils # Man Lymphocytes # (Manual) Monocytes % (Manual) Eosinophils % (Manual) Monocytes # (Manual) Eosinophils # (Manual) D-Dimer Heparin Anti-Xa Level ABG pH POC ABG pCO2 POC ABG pO2 ABG pO2 ABG HCO3 ABG O2 Saturation ABG Base Excess ABG Hemoglobin ABG Oxyhemoglobin VBG pH ABG Sodium ABG Potassium ABG Glucose Oxyhemoglobin Sodium Potassium Chloride Carbon Dioxide BUN 80 H Creatinine 2.0 H Glucose 129 H POC Glucose Lactic Acid 0.60 L Calcium 7.9 L Ferritin AST Alkaline Phosphatase Magnesium Lactate Dehydrogenase Total Creatine Kinase CK-MB (CK-2) C-Reactive Protein Total Protein Albumin Troponin T HDL Cholesterol Arterial Blood Glucose Urine WBC (Auto) Urine Creatinine Urine Total Protein Phenytoin Coronavirus (PCR) Crossmatch 06/27/20 06/27/20 06/27/20 05:23 13:46 17:25 WBC RBC Hgb Hct MCHC RDW Lymph % (Auto) [place] % (Auto) Eos % (Auto) Lymph # [place] # Lymph # (Auto) [place] # (Auto) Eos # (Auto) Seg Neutrophils % Seg Neuts % (Manual) Lymphocytes % (Manual) Seg Neutrophils # Seg Neutrophils # Man Lymphocytes # (Manual) Monocytes % (Manual) Eosinophils % (Manual) Monocytes # (Manual) Eosinophils # (Manual) D-Dimer Heparin Anti-Xa Level ABG pH POC ABG pCO2 POC ABG pO2 ABG pO2 ABG HCO3 ABG O2 Saturation ABG Base Excess ABG Hemoglobin ABG Oxyhemoglobin VBG pH ABG Sodium ABG Potassium ABG Glucose Oxyhemoglobin Sodium Potassium Chloride Carbon Dioxide BUN Creatinine Glucose POC Glucose 109 H 158 H 162 H Lactic Acid Calcium Ferritin AST Alkaline Phosphatase Magnesium Lactate Dehydrogenase Total Creatine Kinase CK-MB (CK-2) C-Reactive Protein Total Protein Albumin Troponin T HDL Cholesterol Arterial Blood Glucose Urine WBC (Auto) Urine Creatinine Urine Total Protein Phenytoin Coronavirus (PCR) Crossmatch 06/27/20 06/27/20 06/28/20 18:43 23:46 04:05 WBC RBC Hgb 7.7 L Hct 22.1 L MCHC RDW Lymph % (Auto) [place] % (Auto) Eos % (Auto) Lymph # [place] # Lymph # (Auto) [place] # (Auto) Eos # (Auto) Seg Neutrophils % Seg Neuts % (Manual) Lymphocytes % (Manual) Seg Neutrophils # Seg Neutrophils # Man Lymphocytes # (Manual) Monocytes % (Manual) Eosinophils % (Manual) Monocytes # (Manual) Eosinophils # (Manual) D-Dimer Heparin Anti-Xa Level ABG pH POC ABG pCO2 POC ABG pO2 ABG pO2 102.7 H ABG HCO3 28.7 H ABG O2 Saturation ABG Base Excess 3.7 H ABG Hemoglobin ABG Oxyhemoglobin VBG pH ABG Sodium ABG Potassium ABG Glucose Oxyhemoglobin Sodium Potassium Chloride Carbon Dioxide BUN Creatinine Glucose POC Glucose 142 H Lactic Acid Calcium Ferritin AST Alkaline Phosphatase Magnesium Lactate Dehydrogenase Total Creatine Kinase CK-MB (CK-2) C-Reactive Protein Total Protein Albumin Troponin T HDL Cholesterol Arterial Blood Glucose Urine WBC (Auto) Urine Creatinine Urine Total Protein Phenytoin Coronavirus (PCR) Crossmatch 06/28/20 06/28/20 06/28/20 09:47 09:47 12:02 WBC RBC 2.53 L Hgb 7.4 L Hct 22.2 L MCHC RDW 16.8 H Lymph % (Auto) [place] % (Auto) 13.5 H Eos % (Auto) Lymph # 1.1 L [place] # 1.0 H Lymph # (Auto) [place] # (Auto) Eos # (Auto) Seg Neutrophils % Seg Neuts % (Manual) Lymphocytes % (Manual) Seg Neutrophils # Seg Neutrophils # Man Lymphocytes # (Manual) Monocytes % (Manual) Eosinophils % (Manual) Monocytes # (Manual) Eosinophils # (Manual) D-Dimer Heparin Anti-Xa Level ABG pH POC ABG pCO2 POC ABG pO2 ABG pO2 ABG HCO3 ABG O2 Saturation ABG Base Excess ABG Hemoglobin ABG Oxyhemoglobin VBG pH ABG Sodium ABG Potassium ABG Glucose Oxyhemoglobin Sodium Potassium Chloride Carbon Dioxide BUN 80 H Creatinine 1.5 H Glucose 139 H POC Glucose 169 H Lactic Acid Calcium 7.9 L Ferritin AST Alkaline Phosphatase Magnesium Lactate Dehydrogenase Total Creatine Kinase CK-MB (CK-2) C-Reactive Protein Total Protein 5.0 L Albumin 2.1 L Troponin T HDL Cholesterol Arterial Blood Glucose Urine WBC (Auto) Urine Creatinine Urine Total Protein Phenytoin Coronavirus (PCR) Crossmatch 06/28/20 06/28/20 06/28/20 12:30 12:30 17:24 WBC RBC 2.38 L Hgb 7.3 L Hct 20.9 L MCHC 35 H RDW 16.7 H Lymph % (Auto) [place] % (Auto) Eos % (Auto) Lymph # [place] # Lymph # (Auto) [place] # (Auto) Eos # (Auto) Seg Neutrophils % Seg Neuts % (Manual) Lymphocytes % (Manual) Seg Neutrophils # Seg Neutrophils # Man Lymphocytes # (Manual) Monocytes % (Manual) Eosinophils % (Manual) Monocytes # (Manual) Eosinophils # (Manual) D-Dimer Heparin Anti-Xa Level ABG pH POC ABG pCO2 POC ABG pO2 ABG pO2 ABG HCO3 ABG O2 Saturation ABG Base Excess ABG Hemoglobin ABG Oxyhemoglobin VBG pH ABG Sodium ABG Potassium ABG Glucose Oxyhemoglobin Sodium Potassium Chloride Carbon Dioxide BUN 74 H Creatinine 1.5 H Glucose 143 H POC Glucose 173 H Lactic Acid Calcium 7.5 L Ferritin AST Alkaline Phosphatase Magnesium Lactate Dehydrogenase Total Creatine Kinase CK-MB (CK-2) C-Reactive Protein Total Protein Albumin Troponin T HDL Cholesterol Arterial Blood Glucose Urine WBC (Auto) Urine Creatinine Urine Total Protein Phenytoin Coronavirus (PCR) Crossmatch 06/29/20 06/29/20 06/29/20 00:02 03:54 04:38 WBC RBC 2.55 L Hgb 7.3 L Hct 22.4 L MCHC RDW 16.4 H Lymph % (Auto) 13.3 L [place] % (Auto) 12.5 H Eos % (Auto) Lymph # 1.1 L [place] # 1.0 H Lymph # (Auto) [place] # (Auto) Eos # (Auto) Seg Neutrophils % Seg Neuts % (Manual) Lymphocytes % (Manual) Seg Neutrophils # Seg Neutrophils # Man Lymphocytes # (Manual) Monocytes % (Manual) Eosinophils % (Manual) Monocytes # (Manual) Eosinophils # (Manual) D-Dimer Heparin Anti-Xa Level ABG pH POC ABG pCO2 POC ABG pO2 ABG pO2 ABG HCO3 26.9 H ABG O2 Saturation ABG Base Excess ABG Hemoglobin 6.9 L ABG Oxyhemoglobin VBG pH ABG Sodium ABG Potassium ABG Glucose Oxyhemoglobin Sodium Potassium Chloride Carbon Dioxide BUN Creatinine Glucose POC Glucose 142 H Lactic Acid Calcium Ferritin AST Alkaline Phosphatase Magnesium Lactate Dehydrogenase Total Creatine Kinase CK-MB (CK-2) C-Reactive Protein Total Protein Albumin Troponin T HDL Cholesterol Arterial Blood Glucose Urine WBC (Auto) Urine Creatinine Urine Total Protein Phenytoin Coronavirus (PCR) Crossmatch 06/29/20 06/29/20 06/29/20 04:38 05:38 12:25 WBC RBC Hgb Hct MCHC RDW Lymph % (Auto) [place] % (Auto) Eos % (Auto) Lymph # [place] # Lymph # (Auto) [place] # (Auto) Eos # (Auto) Seg Neutrophils % Seg Neuts % (Manual) Lymphocytes % (Manual) Seg Neutrophils # Seg Neutrophils # Man Lymphocytes # (Manual) Monocytes % (Manual) Eosinophils % (Manual) Monocytes # (Manual) Eosinophils # (Manual) D-Dimer Heparin Anti-Xa Level ABG pH POC ABG pCO2 POC ABG pO2 ABG pO2 ABG HCO3 ABG O2 Saturation ABG Base Excess ABG Hemoglobin ABG Oxyhemoglobin VBG pH ABG Sodium ABG Potassium ABG Glucose Oxyhemoglobin Sodium Potassium Chloride 107.8 H Carbon Dioxide BUN 72 H Creatinine 1.4 H Glucose 127 H POC Glucose 122 H 138 H Lactic Acid Calcium 7.4 L Ferritin AST Alkaline Phosphatase Magnesium Lactate Dehydrogenase Total Creatine Kinase CK-MB (CK-2) C-Reactive Protein Total Protein Albumin Troponin T HDL Cholesterol Arterial Blood Glucose Urine WBC (Auto) Urine Creatinine Urine Total Protein Phenytoin Coronavirus (PCR) Crossmatch 06/29/20 06/29/20 06/29/20 14:45 14:45 14:45 WBC RBC Hgb Hct MCHC RDW Lymph % (Auto) [place] % (Auto) Eos % (Auto) Lymph # [place] # Lymph # (Auto) [place] # (Auto) Eos # (Auto) Seg Neutrophils % Seg Neuts % (Manual) Lymphocytes % (Manual) Seg Neutrophils # Seg Neutrophils # Man Lymphocytes # (Manual) Monocytes % (Manual) Eosinophils % (Manual) Monocytes # (Manual) Eosinophils # (Manual) D-Dimer 2310.15 H Heparin Anti-Xa Level ABG pH POC ABG pCO2 POC ABG pO2 ABG pO2 ABG HCO3 ABG O2 Saturation ABG Base Excess ABG Hemoglobin ABG Oxyhemoglobin VBG pH ABG Sodium ABG Potassium ABG Glucose Oxyhemoglobin Sodium Potassium Chloride Carbon Dioxide BUN Creatinine Glucose POC Glucose Lactic Acid Calcium Ferritin 223.6 H AST Alkaline Phosphatase Magnesium Lactate Dehydrogenase 367 H Total Creatine Kinase CK-MB (CK-2) C-Reactive Protein 3.60 H Total Protein Albumin Troponin T HDL Cholesterol Arterial Blood Glucose Urine WBC (Auto) Urine Creatinine Urine Total Protein Phenytoin Coronavirus (PCR) Crossmatch 06/29/20 06/29/20 06/29/20 18:27 23:35 Unknown WBC RBC Hgb Hct MCHC RDW Lymph % (Auto) [place] % (Auto) Eos % (Auto) Lymph # [place] # Lymph # (Auto) [place] # (Auto) Eos # (Auto) Seg Neutrophils % Seg Neuts % (Manual) Lymphocytes % (Manual) Seg Neutrophils # Seg Neutrophils # Man Lymphocytes # (Manual) Monocytes % (Manual) Eosinophils % (Manual) Monocytes # (Manual) Eosinophils # (Manual) D-Dimer Heparin Anti-Xa Level ABG pH POC ABG pCO2 POC ABG pO2 ABG pO2 ABG HCO3 ABG O2 Saturation ABG Base Excess ABG Hemoglobin ABG Oxyhemoglobin VBG pH ABG Sodium ABG Potassium ABG Glucose Oxyhemoglobin Sodium Potassium Chloride Carbon Dioxide BUN Creatinine Glucose POC Glucose 112 H 140 H Lactic Acid Calcium Ferritin AST Alkaline Phosphatase Magnesium Lactate Dehydrogenase Total Creatine Kinase CK-MB (CK-2) C-Reactive Protein Total Protein Albumin Troponin T HDL Cholesterol Arterial Blood Glucose Urine WBC (Auto) Urine Creatinine Urine Total Protein Phenytoin Coronavirus (PCR) Positive A Crossmatch 06/30/20 06/30/20 06/30/20 04:10 04:10 06:09 WBC RBC 2.44 L Hgb 7.1 L Hct 21.5 L MCHC RDW 16.6 H Lymph % (Auto) 11.0 L [place] % (Auto) 10.8 H Eos % (Auto) Lymph # 0.9 L [place] # 0.9 H Lymph # (Auto) [place] # (Auto) Eos # (Auto) Seg Neutrophils % 73.7 H Seg Neuts % (Manual) Lymphocytes % (Manual) Seg Neutrophils # Seg Neutrophils # Man Lymphocytes # (Manual) Monocytes % (Manual) Eosinophils % (Manual) Monocytes # (Manual) Eosinophils # (Manual) D-Dimer Heparin Anti-Xa Level ABG pH POC ABG pCO2 POC ABG pO2 ABG pO2 ABG HCO3 ABG O2 Saturation ABG Base Excess ABG Hemoglobin ABG Oxyhemoglobin VBG pH ABG Sodium ABG Potassium ABG Glucose Oxyhemoglobin Sodium Potassium Chloride 109.1 H Carbon Dioxide BUN 74 H Creatinine 1.3 H Glucose 191 H POC Glucose 187 H Lactic Acid Calcium 7.8 L Ferritin AST Alkaline Phosphatase Magnesium Lactate Dehydrogenase Total Creatine Kinase CK-MB (CK-2) C-Reactive Protein Total Protein Albumin Troponin T HDL Cholesterol Arterial Blood Glucose Urine WBC (Auto) Urine Creatinine Urine Total Protein Phenytoin Coronavirus (PCR) Crossmatch 06/30/20 06/30/20 06/30/20 12:04 17:43 23:41 WBC RBC Hgb Hct MCHC RDW Lymph % (Auto) [place] % (Auto) Eos % (Auto) Lymph # [place] # Lymph # (Auto) [place] # (Auto) Eos # (Auto) Seg Neutrophils % Seg Neuts % (Manual) Lymphocytes % (Manual) Seg Neutrophils # Seg Neutrophils # Man Lymphocytes # (Manual) Monocytes % (Manual) Eosinophils % (Manual) Monocytes # (Manual) Eosinophils # (Manual) D-Dimer Heparin Anti-Xa Level ABG pH POC ABG pCO2 POC ABG pO2 ABG pO2 ABG HCO3 ABG O2 Saturation ABG Base Excess ABG Hemoglobin ABG Oxyhemoglobin VBG pH ABG Sodium ABG Potassium ABG Glucose Oxyhemoglobin Sodium Potassium Chloride Carbon Dioxide BUN Creatinine Glucose POC Glucose 112 H 177 H 143 H Lactic Acid Calcium Ferritin AST Alkaline Phosphatase Magnesium Lactate Dehydrogenase Total Creatine Kinase CK-MB (CK-2) C-Reactive Protein Total Protein Albumin Troponin T HDL Cholesterol Arterial Blood Glucose Urine WBC (Auto) Urine Creatinine Urine Total Protein Phenytoin Coronavirus (PCR) Crossmatch 07/01/20 07/01/20 07/01/20 05:02 05:52 06:01 WBC 12.6 H RBC 2.95 L Hgb 8.2 L Hct 26.0 L MCHC RDW 16.9 H Lymph % (Auto) [place] % (Auto) Eos % (Auto) Lymph # [place] # Lymph # (Auto) [place] # (Auto) Eos # (Auto) Seg Neutrophils % Seg Neuts % (Manual) Lymphocytes % (Manual) Seg Neutrophils # Seg Neutrophils # Man 8.6 H Lymphocytes # (Manual) Monocytes % (Manual) Eosinophils % (Manual) 5.0 H Monocytes # (Manual) Eosinophils # (Manual) 0.6 H D-Dimer Heparin Anti-Xa Level ABG pH POC ABG pCO2 POC ABG pO2 ABG pO2 ABG HCO3 ABG O2 Saturation ABG Base Excess ABG Hemoglobin 8.2 L ABG Oxyhemoglobin VBG pH ABG Sodium ABG Potassium ABG Glucose Oxyhemoglobin Sodium Potassium Chloride Carbon Dioxide BUN Creatinine Glucose POC Glucose 129 H Lactic Acid Calcium Ferritin AST Alkaline Phosphatase Magnesium Lactate Dehydrogenase Total Creatine Kinase CK-MB (CK-2) C-Reactive Protein Total Protein Albumin Troponin T HDL Cholesterol Arterial Blood Glucose Urine WBC (Auto) Urine Creatinine Urine Total Protein Phenytoin Coronavirus (PCR) Crossmatch 07/01/20 07/01/20 07/01/20 06:01 06:01 06:08 WBC RBC Hgb Hct MCHC RDW Lymph % (Auto) [place] % (Auto) Eos % (Auto) Lymph # [place] # Lymph # (Auto) [place] # (Auto) Eos # (Auto) Seg Neutrophils % Seg Neuts % (Manual) Lymphocytes % (Manual) Seg Neutrophils # Seg Neutrophils # Man Lymphocytes # (Manual) Monocytes % (Manual) Eosinophils % (Manual) Monocytes # (Manual) Eosinophils # (Manual) D-Dimer Heparin Anti-Xa Level ABG pH POC ABG pCO2 POC ABG pO2 ABG pO2 ABG HCO3 ABG O2 Saturation ABG Base Excess ABG Hemoglobin ABG Oxyhemoglobin VBG pH ABG Sodium ABG Potassium ABG Glucose Oxyhemoglobin Sodium 147 H Potassium Chloride 108.0 H Carbon Dioxide BUN 71 H Creatinine 1.3 H Glucose 193 H POC Glucose 192 H Lactic Acid Calcium 8.1 L Ferritin AST Alkaline Phosphatase Magnesium Lactate Dehydrogenase Total Creatine Kinase 300 H CK-MB (CK-2) C-Reactive Protein Total Protein Albumin Troponin T 0.067 H HDL Cholesterol 61 H Arterial Blood Glucose Urine WBC (Auto) Urine Creatinine Urine Total Protein Phenytoin Coronavirus (PCR) Crossmatch 07/01/20 07/01/20 07/02/20 12:23 17:40 00:18 WBC RBC Hgb Hct MCHC RDW Lymph % (Auto) [place] % (Auto) Eos % (Auto) Lymph # [place] # Lymph # (Auto) [place] # (Auto) Eos # (Auto) Seg Neutrophils % Seg Neuts % (Manual) Lymphocytes % (Manual) Seg Neutrophils # Seg Neutrophils # Man Lymphocytes # (Manual) Monocytes % (Manual) Eosinophils % (Manual) Monocytes # (Manual) Eosinophils # (Manual) D-Dimer Heparin Anti-Xa Level ABG pH POC ABG pCO2 POC ABG pO2 ABG pO2 ABG HCO3 ABG O2 Saturation ABG Base Excess ABG Hemoglobin ABG Oxyhemoglobin VBG pH ABG Sodium ABG Potassium ABG Glucose Oxyhemoglobin Sodium Potassium Chloride Carbon Dioxide BUN Creatinine Glucose POC Glucose 111 H 135 H 145 H Lactic Acid Calcium Ferritin AST Alkaline Phosphatase Magnesium Lactate Dehydrogenase Total Creatine Kinase CK-MB (CK-2) C-Reactive Protein Total Protein Albumin Troponin T HDL Cholesterol Arterial Blood Glucose Urine WBC (Auto) Urine Creatinine Urine Total Protein Phenytoin Coronavirus (PCR) Crossmatch 07/02/20 07/02/20 07/02/20 04:11 04:23 05:54 WBC RBC Hgb Hct MCHC RDW Lymph % (Auto) [place] % (Auto) Eos % (Auto) Lymph # [place] # Lymph # (Auto) [place] # (Auto) Eos # (Auto) Seg Neutrophils % Seg Neuts % (Manual) Lymphocytes % (Manual) Seg Neutrophils # Seg Neutrophils # Man Lymphocytes # (Manual) Monocytes % (Manual) Eosinophils % (Manual) Monocytes # (Manual) Eosinophils # (Manual) D-Dimer Heparin Anti-Xa Level ABG pH POC ABG pCO2 POC ABG pO2 ABG pO2 ABG HCO3 ABG O2 Saturation ABG Base Excess ABG Hemoglobin 5.4 L ABG Oxyhemoglobin VBG pH ABG Sodium ABG Potassium ABG Glucose Oxyhemoglobin Sodium Potassium Chloride 108.6 H Carbon Dioxide BUN 72 H Creatinine Glucose 112 H POC Glucose 137 H Lactic Acid Calcium 7.8 L Ferritin AST Alkaline Phosphatase Magnesium Lactate Dehydrogenase Total Creatine Kinase CK-MB (CK-2) C-Reactive Protein Total Protein Albumin Troponin T HDL Cholesterol Arterial Blood Glucose Urine WBC (Auto) Urine Creatinine Urine Total Protein Phenytoin Coronavirus (PCR) Crossmatch 07/02/20 07/02/20 07/02/20 11:38 18:04 23:59 WBC RBC Hgb Hct MCHC RDW Lymph % (Auto) [place] % (Auto) Eos % (Auto) Lymph # [place] # Lymph # (Auto) [place] # (Auto) Eos # (Auto) Seg Neutrophils % Seg Neuts % (Manual) Lymphocytes % (Manual) Seg Neutrophils # Seg Neutrophils # Man Lymphocytes # (Manual) Monocytes % (Manual) Eosinophils % (Manual) Monocytes # (Manual) Eosinophils # (Manual) D-Dimer Heparin Anti-Xa Level ABG pH POC ABG pCO2 POC ABG pO2 ABG pO2 ABG HCO3 ABG O2 Saturation ABG Base Excess ABG Hemoglobin ABG Oxyhemoglobin VBG pH ABG Sodium ABG Potassium ABG Glucose Oxyhemoglobin Sodium Potassium Chloride Carbon Dioxide BUN Creatinine Glucose POC Glucose 128 H 135 H 156 H Lactic Acid Calcium Ferritin AST Alkaline Phosphatase Magnesium Lactate Dehydrogenase Total Creatine Kinase CK-MB (CK-2) C-Reactive Protein Total Protein Albumin Troponin T HDL Cholesterol Arterial Blood Glucose Urine WBC (Auto) Urine Creatinine Urine Total Protein Phenytoin Coronavirus (PCR) Crossmatch 07/03/20 07/03/20 07/03/20 03:49 06:00 11:31 WBC RBC Hgb Hct MCHC RDW Lymph % (Auto) [place] % (Auto) Eos % (Auto) Lymph # [place] # Lymph # (Auto) [place] # (Auto) Eos # (Auto) Seg Neutrophils % Seg Neuts % (Manual) Lymphocytes % (Manual) Seg Neutrophils # Seg Neutrophils # Man Lymphocytes # (Manual) Monocytes % (Manual) Eosinophils % (Manual) Monocytes # (Manual) Eosinophils # (Manual) D-Dimer Heparin Anti-Xa Level ABG pH POC ABG pCO2 POC ABG pO2 ABG pO2 121.0 H ABG HCO3 ABG O2 Saturation ABG Base Excess ABG Hemoglobin 8.5 L ABG Oxyhemoglobin VBG pH ABG Sodium ABG Potassium ABG Glucose Oxyhemoglobin Sodium Potassium Chloride Carbon Dioxide BUN Creatinine Glucose POC Glucose 135 H 141 H Lactic Acid Calcium Ferritin AST Alkaline Phosphatase Magnesium Lactate Dehydrogenase Total Creatine Kinase CK-MB (CK-2) C-Reactive Protein Total Protein Albumin Troponin T HDL Cholesterol Arterial Blood Glucose Urine WBC (Auto) Urine Creatinine Urine Total Protein Phenytoin Coronavirus (PCR) Crossmatch 07/03/20 07/03/20 07/03/20 16:00 16:07 17:40 WBC RBC Hgb Hct MCHC RDW Lymph % (Auto) [place] % (Auto) Eos % (Auto) Lymph # [place] # Lymph # (Auto) [place] # (Auto) Eos # (Auto) Seg Neutrophils % Seg Neuts % (Manual) Lymphocytes % (Manual) Seg Neutrophils # Seg Neutrophils # Man Lymphocytes # (Manual) Monocytes % (Manual) Eosinophils % (Manual) Monocytes # (Manual) Eosinophils # (Manual) D-Dimer Heparin Anti-Xa Level ABG pH 7.271 L POC ABG pCO2 POC ABG pO2 ABG pO2 126.9 H ABG HCO3 ABG O2 Saturation ABG Base Excess ABG Hemoglobin 8.2 L 8.1 L ABG Oxyhemoglobin VBG pH ABG Sodium 130.3 L ABG Potassium 4.9 H ABG Glucose 163 H Oxyhemoglobin Sodium Potassium Chloride Carbon Dioxide BUN Creatinine Glucose POC Glucose 120 H Lactic Acid Calcium Ferritin AST Alkaline Phosphatase Magnesium Lactate Dehydrogenase Total Creatine Kinase CK-MB (CK-2) C-Reactive Protein Total Protein Albumin Troponin T HDL Cholesterol Arterial Blood Glucose 163 H Urine WBC (Auto) Urine Creatinine Urine Total Protein Phenytoin Coronavirus (PCR) Crossmatch 07/04/20 07/04/20 07/04/20 05:49 11:54 18:00 WBC RBC Hgb Hct MCHC RDW Lymph % (Auto) [place] % (Auto) Eos % (Auto) Lymph # [place] # Lymph # (Auto) [place] # (Auto) Eos # (Auto) Seg Neutrophils % Seg Neuts % (Manual) Lymphocytes % (Manual) Seg Neutrophils # Seg Neutrophils # Man Lymphocytes # (Manual) Monocytes % (Manual) Eosinophils % (Manual) Monocytes # (Manual) Eosinophils # (Manual) D-Dimer Heparin Anti-Xa Level ABG pH POC ABG pCO2 POC ABG pO2 ABG pO2 ABG HCO3 ABG O2 Saturation ABG Base Excess ABG Hemoglobin ABG Oxyhemoglobin VBG pH ABG Sodium ABG Potassium ABG Glucose Oxyhemoglobin Sodium Potassium Chloride Carbon Dioxide BUN Creatinine Glucose POC Glucose 128 H 168 H 133 H Lactic Acid Calcium Ferritin AST Alkaline Phosphatase Magnesium Lactate Dehydrogenase Total Creatine Kinase CK-MB (CK-2) C-Reactive Protein Total Protein Albumin Troponin T HDL Cholesterol Arterial Blood Glucose Urine WBC (Auto) Urine Creatinine Urine Total Protein Phenytoin Coronavirus (PCR) Crossmatch 07/05/20 07/05/20 07/05/20 00:07 01:12 02:30 WBC RBC 2.35 L Hgb 6.9 L Hct 21.1 L MCHC RDW 16.8 H Lymph % (Auto) [place] % (Auto) Eos % (Auto) Lymph # [place] # Lymph # (Auto) [place] # (Auto) Eos # (Auto) Seg Neutrophils % Seg Neuts % (Manual) 74.0 H Lymphocytes % (Manual) 12.0 L Seg Neutrophils # Seg Neutrophils # Man 8.0 H Lymphocytes # (Manual) Monocytes % (Manual) 9.0 H Eosinophils % (Manual) Monocytes # (Manual) 1.0 H Eosinophils # (Manual) D-Dimer Heparin Anti-Xa Level ABG pH POC ABG pCO2 POC ABG pO2 ABG pO2 ABG HCO3 ABG O2 Saturation ABG Base Excess ABG Hemoglobin ABG Oxyhemoglobin VBG pH ABG Sodium ABG Potassium ABG Glucose Oxyhemoglobin Sodium Potassium Chloride Carbon Dioxide BUN Creatinine Glucose POC Glucose 121 H Lactic Acid Calcium Ferritin AST Alkaline Phosphatase Magnesium Lactate Dehydrogenase Total Creatine Kinase CK-MB (CK-2) C-Reactive Protein Total Protein Albumin Troponin T HDL Cholesterol Arterial Blood Glucose Urine WBC (Auto) Urine Creatinine Urine Total Protein Phenytoin Coronavirus (PCR) Crossmatch See Detail 07/05/20 07/05/20 07/05/20 12:09 13:05 18:04 WBC RBC Hgb Hct MCHC RDW Lymph % (Auto) [place] % (Auto) Eos % (Auto) Lymph # [place] # Lymph # (Auto) [place] # (Auto) Eos # (Auto) Seg Neutrophils % Seg Neuts % (Manual) Lymphocytes % (Manual) Seg Neutrophils # Seg Neutrophils # Man Lymphocytes # (Manual) Monocytes % (Manual) Eosinophils % (Manual) Monocytes # (Manual) Eosinophils # (Manual) D-Dimer Heparin Anti-Xa Level ABG pH 7.32 L POC ABG pCO2 POC ABG pO2 ABG pO2 78.3 L ABG HCO3 ABG O2 Saturation ABG Base Excess -2.6 L ABG Hemoglobin 7.3 L ABG Oxyhemoglobin VBG pH ABG Sodium ABG Potassium ABG Glucose Oxyhemoglobin Sodium Potassium Chloride Carbon Dioxide BUN Creatinine Glucose POC Glucose 132 H 160 H Lactic Acid Calcium Ferritin AST Alkaline Phosphatase Magnesium Lactate Dehydrogenase Total Creatine Kinase CK-MB (CK-2) C-Reactive Protein Total Protein Albumin Troponin T HDL Cholesterol Arterial Blood Glucose Urine WBC (Auto) Urine Creatinine Urine Total Protein Phenytoin Coronavirus (PCR) Crossmatch 07/05/20 07/05/20 07/05/20 23:13 23:13 23:43 WBC RBC 2.57 L Hgb 7.7 L Hct 23.0 L MCHC RDW 16.9 H Lymph % (Auto) [place] % (Auto) Eos % (Auto) Lymph # [place] # Lymph # (Auto) [place] # (Auto) Eos # (Auto) Seg Neutrophils % Seg Neuts % (Manual) Lymphocytes % (Manual) Seg Neutrophils # Seg Neutrophils # Man Lymphocytes # (Manual) Monocytes % (Manual) Eosinophils % (Manual) Monocytes # (Manual) Eosinophils # (Manual) D-Dimer Heparin Anti-Xa Level ABG pH POC ABG pCO2 POC ABG pO2 ABG pO2 ABG HCO3 ABG O2 Saturation ABG Base Excess ABG Hemoglobin ABG Oxyhemoglobin VBG pH ABG Sodium ABG Potassium ABG Glucose Oxyhemoglobin Sodium Potassium Chloride Carbon Dioxide 20 L BUN 80 H Creatinine 2.4 H D Glucose 124 H POC Glucose 121 H Lactic Acid Calcium 7.6 L Ferritin AST Alkaline Phosphatase Magnesium Lactate Dehydrogenase Total Creatine Kinase CK-MB (CK-2) C-Reactive Protein Total Protein Albumin Troponin T HDL Cholesterol Arterial Blood Glucose Urine WBC (Auto) Urine Creatinine Urine Total Protein Phenytoin Coronavirus (PCR) Crossmatch 07/06/20 07/06/20 07/06/20 13:20 14:48 17:28 WBC RBC Hgb Hct MCHC RDW Lymph % (Auto) [place] % (Auto) Eos % (Auto) Lymph # [place] # Lymph # (Auto) [place] # (Auto) Eos # (Auto) Seg Neutrophils % Seg Neuts % (Manual) Lymphocytes % (Manual) Seg Neutrophils # Seg Neutrophils # Man Lymphocytes # (Manual) Monocytes % (Manual) Eosinophils % (Manual) Monocytes # (Manual) Eosinophils # (Manual) D-Dimer Heparin Anti-Xa Level ABG pH POC ABG pCO2 POC ABG pO2 ABG pO2 ABG HCO3 ABG O2 Saturation ABG Base Excess ABG Hemoglobin ABG Oxyhemoglobin VBG pH ABG Sodium ABG Potassium ABG Glucose Oxyhemoglobin Sodium 136 L Potassium 5.5 H Chloride Carbon Dioxide 19 L BUN 82 H Creatinine 2.5 H Glucose 113 H POC Glucose 133 H Lactic Acid Calcium 7.7 L Ferritin AST Alkaline Phosphatase Magnesium Lactate Dehydrogenase Total Creatine Kinase CK-MB (CK-2) C-Reactive Protein Total Protein Albumin Troponin T HDL Cholesterol Arterial Blood Glucose Urine WBC (Auto) Urine Creatinine 33.3 H Urine Total Protein Phenytoin Coronavirus (PCR) Crossmatch 07/07/20 07/07/20 07/07/20 00:12 04:15 04:15 WBC RBC 2.28 L Hgb 6.8 L Hct 20.7 L MCHC RDW 16.8 H Lymph % (Auto) [place] % (Auto) Eos % (Auto) Lymph # [place] # Lymph # (Auto) [place] # (Auto) Eos # (Auto) Seg Neutrophils % Seg Neuts % (Manual) Lymphocytes % (Manual) 13.0 L Seg Neutrophils # Seg Neutrophils # Man Lymphocytes # (Manual) 1.0 L Monocytes % (Manual) 11.0 H Eosinophils % (Manual) Monocytes # (Manual) 0.9 H Eosinophils # (Manual) D-Dimer Heparin Anti-Xa Level ABG pH POC ABG pCO2 POC ABG pO2 ABG pO2 ABG HCO3 ABG O2 Saturation ABG Base Excess ABG Hemoglobin ABG Oxyhemoglobin VBG pH ABG Sodium ABG Potassium ABG Glucose Oxyhemoglobin Sodium Potassium Chloride Carbon Dioxide BUN Creatinine Glucose POC Glucose 154 H Lactic Acid Calcium Ferritin AST Alkaline Phosphatase Magnesium 2.50 H Lactate Dehydrogenase Total Creatine Kinase CK-MB (CK-2) C-Reactive Protein Total Protein Albumin Troponin T HDL Cholesterol Arterial Blood Glucose Urine WBC (Auto) Urine Creatinine Urine Total Protein Phenytoin Coronavirus (PCR) Crossmatch 07/07/20 07/07/20 07/07/20 05:31 12:31 13:22 WBC RBC Hgb Hct MCHC RDW Lymph % (Auto) [place] % (Auto) Eos % (Auto) Lymph # [place] # Lymph # (Auto) [place] # (Auto) Eos # (Auto) Seg Neutrophils % Seg Neuts % (Manual) Lymphocytes % (Manual) Seg Neutrophils # Seg Neutrophils # Man Lymphocytes # (Manual) Monocytes % (Manual) Eosinophils % (Manual) Monocytes # (Manual) Eosinophils # (Manual) D-Dimer Heparin Anti-Xa Level ABG pH POC ABG pCO2 POC ABG pO2 ABG pO2 ABG HCO3 ABG O2 Saturation ABG Base Excess ABG Hemoglobin ABG Oxyhemoglobin VBG pH ABG Sodium ABG Potassium ABG Glucose Oxyhemoglobin Sodium Potassium 5.6 H Chloride Carbon Dioxide BUN 86 H Creatinine 2.9 H Glucose 127 H POC Glucose 135 H 131 H Lactic Acid Calcium 8.1 L Ferritin AST Alkaline Phosphatase Magnesium Lactate Dehydrogenase Total Creatine Kinase CK-MB (CK-2) C-Reactive Protein Total Protein Albumin Troponin T HDL Cholesterol Arterial Blood Glucose Urine WBC (Auto) Urine Creatinine Urine Total Protein Phenytoin Coronavirus (PCR) Crossmatch 07/07/20 07/07/20 07/08/20 17:55 23:33 04:14 WBC RBC 3.28 L Hgb 9.7 L Hct 28.9 L D MCHC RDW 16.4 H Lymph % (Auto) 10.3 L [place] % (Auto) 10.0 H Eos % (Auto) Lymph # [place] # Lymph # (Auto) 1.1 L [place] # (Auto) 1.1 H Eos # (Auto) Seg Neutrophils % 77.2 H Seg Neuts % (Manual) Lymphocytes % (Manual) Seg Neutrophils # 8.2 H Seg Neutrophils # Man Lymphocytes # (Manual) Monocytes % (Manual) Eosinophils % (Manual) Monocytes # (Manual) Eosinophils # (Manual) D-Dimer Heparin Anti-Xa Level ABG pH POC ABG pCO2 POC ABG pO2 ABG pO2 ABG HCO3 ABG O2 Saturation ABG Base Excess ABG Hemoglobin ABG Oxyhemoglobin VBG pH ABG Sodium ABG Potassium ABG Glucose Oxyhemoglobin Sodium Potassium Chloride Carbon Dioxide BUN Creatinine Glucose POC Glucose 136 H 159 H Lactic Acid Calcium Ferritin AST Alkaline Phosphatase Magnesium Lactate Dehydrogenase Total Creatine Kinase CK-MB (CK-2) C-Reactive Protein Total Protein Albumin Troponin T HDL Cholesterol Arterial Blood Glucose Urine WBC (Auto) Urine Creatinine Urine Total Protein Phenytoin Coronavirus (PCR) Crossmatch 07/08/20 07/08/20 07/08/20 04:14 12:10 18:10 WBC RBC Hgb Hct MCHC RDW Lymph % (Auto) [place] % (Auto) Eos % (Auto) Lymph # [place] # Lymph # (Auto) [place] # (Auto) Eos # (Auto) Seg Neutrophils % Seg Neuts % (Manual) Lymphocytes % (Manual) Seg Neutrophils # Seg Neutrophils # Man Lymphocytes # (Manual) Monocytes % (Manual) Eosinophils % (Manual) Monocytes # (Manual) Eosinophils # (Manual) D-Dimer Heparin Anti-Xa Level ABG pH POC ABG pCO2 POC ABG pO2 ABG pO2 ABG HCO3 ABG O2 Saturation ABG Base Excess ABG Hemoglobin ABG Oxyhemoglobin VBG pH ABG Sodium ABG Potassium ABG Glucose Oxyhemoglobin Sodium 136 L Potassium Chloride Carbon Dioxide BUN 84 H Creatinine 2.8 H Glucose 109 H POC Glucose 108 H 125 H Lactic Acid Calcium 8.1 L Ferritin AST Alkaline Phosphatase Magnesium 2.50 H Lactate Dehydrogenase Total Creatine Kinase CK-MB (CK-2) C-Reactive Protein Total Protein Albumin Troponin T HDL Cholesterol Arterial Blood Glucose Urine WBC (Auto) Urine Creatinine Urine Total Protein Phenytoin Coronavirus (PCR) Crossmatch 07/08/20 07/09/20 07/09/20 23:50 05:39 11:57 WBC RBC Hgb Hct MCHC RDW Lymph % (Auto) [place] % (Auto) Eos % (Auto) Lymph # [place] # Lymph # (Auto) [place] # (Auto) Eos # (Auto) Seg Neutrophils % Seg Neuts % (Manual) Lymphocytes % (Manual) Seg Neutrophils # Seg Neutrophils # Man Lymphocytes # (Manual) Monocytes % (Manual) Eosinophils % (Manual) Monocytes # (Manual) Eosinophils # (Manual) D-Dimer Heparin Anti-Xa Level ABG pH POC ABG pCO2 POC ABG pO2 ABG pO2 ABG HCO3 ABG O2 Saturation ABG Base Excess ABG Hemoglobin ABG Oxyhemoglobin VBG pH ABG Sodium ABG Potassium ABG Glucose Oxyhemoglobin Sodium Potassium Chloride Carbon Dioxide BUN Creatinine Glucose POC Glucose 141 H 121 H 123 H Lactic Acid Calcium Ferritin AST Alkaline Phosphatase Magnesium Lactate Dehydrogenase Total Creatine Kinase CK-MB (CK-2) C-Reactive Protein Total Protein Albumin Troponin T HDL Cholesterol Arterial Blood Glucose Urine WBC (Auto) Urine Creatinine Urine Total Protein Phenytoin Coronavirus (PCR) Crossmatch 07/09/20 07/10/20 07/10/20 17:56 00:29 05:50 WBC RBC Hgb Hct MCHC RDW Lymph % (Auto) [place] % (Auto) Eos % (Auto) Lymph # [place] # Lymph # (Auto) [place] # (Auto) Eos # (Auto) Seg Neutrophils % Seg Neuts % (Manual) Lymphocytes % (Manual) Seg Neutrophils # Seg Neutrophils # Man Lymphocytes # (Manual) Monocytes % (Manual) Eosinophils % (Manual) Monocytes # (Manual) Eosinophils # (Manual) D-Dimer Heparin Anti-Xa Level ABG pH POC ABG pCO2 POC ABG pO2 ABG pO2 ABG HCO3 ABG O2 Saturation ABG Base Excess ABG Hemoglobin ABG Oxyhemoglobin VBG pH ABG Sodium ABG Potassium ABG Glucose Oxyhemoglobin Sodium Potassium Chloride Carbon Dioxide BUN Creatinine Glucose POC Glucose 119 H 122 H 124 H Lactic Acid Calcium Ferritin AST Alkaline Phosphatase Magnesium Lactate Dehydrogenase Total Creatine Kinase CK-MB (CK-2) C-Reactive Protein Total Protein Albumin Troponin T HDL Cholesterol Arterial Blood Glucose Urine WBC (Auto) Urine Creatinine Urine Total Protein Phenytoin Coronavirus (PCR) Crossmatch 07/10/20 07/10/20 07/10/20 10:41 10:41 12:25 WBC RBC 3.11 L Hgb 9.2 L Hct 27.6 L MCHC RDW 16.6 H Lymph % (Auto) [place] % (Auto) Eos % (Auto) Lymph # [place] # Lymph # (Auto) [place] # (Auto) Eos # (Auto) Seg Neutrophils % Seg Neuts % (Manual) 78.0 H Lymphocytes % (Manual) 11.0 L Seg Neutrophils # Seg Neutrophils # Man Lymphocytes # (Manual) 1.0 L Monocytes % (Manual) Eosinophils % (Manual) Monocytes # (Manual) Eosinophils # (Manual) D-Dimer Heparin Anti-Xa Level ABG pH POC ABG pCO2 POC ABG pO2 ABG pO2 ABG HCO3 ABG O2 Saturation ABG Base Excess ABG Hemoglobin ABG Oxyhemoglobin VBG pH ABG Sodium ABG Potassium ABG Glucose Oxyhemoglobin Sodium Potassium Chloride Carbon Dioxide BUN 85 H Creatinine 2.5 H Glucose 133 H POC Glucose 131 H Lactic Acid Calcium Ferritin AST Alkaline Phosphatase 131 H Magnesium Lactate Dehydrogenase Total Creatine Kinase CK-MB (CK-2) C-Reactive Protein Total Protein 5.2 L Albumin 1.6 L Troponin T HDL Cholesterol Arterial Blood Glucose Urine WBC (Auto) Urine Creatinine Urine Total Protein Phenytoin Coronavirus (PCR) Crossmatch 07/10/20 07/11/20 07/11/20 18:10 00:28 05:57 WBC RBC Hgb Hct MCHC RDW Lymph % (Auto) [place] % (Auto) Eos % (Auto) Lymph # [place] # Lymph # (Auto) [place] # (Auto) Eos # (Auto) Seg Neutrophils % Seg Neuts % (Manual) Lymphocytes % (Manual) Seg Neutrophils # Seg Neutrophils # Man Lymphocytes # (Manual) Monocytes % (Manual) Eosinophils % (Manual) Monocytes # (Manual) Eosinophils # (Manual) D-Dimer Heparin Anti-Xa Level ABG pH POC ABG pCO2 POC ABG pO2 ABG pO2 ABG HCO3 ABG O2 Saturation ABG Base Excess ABG Hemoglobin ABG Oxyhemoglobin VBG pH ABG Sodium ABG Potassium ABG Glucose Oxyhemoglobin Sodium Potassium Chloride Carbon Dioxide BUN Creatinine Glucose POC Glucose 134 H 140 H 148 H Lactic Acid Calcium Ferritin AST Alkaline Phosphatase Magnesium Lactate Dehydrogenase Total Creatine Kinase CK-MB (CK-2) C-Reactive Protein Total Protein Albumin Troponin T HDL Cholesterol Arterial Blood Glucose Urine WBC (Auto) Urine Creatinine Urine Total Protein Phenytoin Coronavirus (PCR) Crossmatch 07/11/20 07/11/20 07/11/20 12:14 17:28 23:49 WBC RBC Hgb Hct MCHC RDW Lymph % (Auto) [place] % (Auto) Eos % (Auto) Lymph # [place] # Lymph # (Auto) [place] # (Auto) Eos # (Auto) Seg Neutrophils % Seg Neuts % (Manual) Lymphocytes % (Manual) Seg Neutrophils # Seg Neutrophils # Man Lymphocytes # (Manual) Monocytes % (Manual) Eosinophils % (Manual) Monocytes # (Manual) Eosinophils # (Manual) D-Dimer Heparin Anti-Xa Level ABG pH POC ABG pCO2 POC ABG pO2 ABG pO2 ABG HCO3 ABG O2 Saturation ABG Base Excess ABG Hemoglobin ABG Oxyhemoglobin VBG pH ABG Sodium ABG Potassium ABG Glucose Oxyhemoglobin Sodium Potassium Chloride Carbon Dioxide BUN Creatinine Glucose POC Glucose 147 H 175 H 114 H Lactic Acid Calcium Ferritin AST Alkaline Phosphatase Magnesium Lactate Dehydrogenase Total Creatine Kinase CK-MB (CK-2) C-Reactive Protein Total Protein Albumin Troponin T HDL Cholesterol Arterial Blood Glucose Urine WBC (Auto) Urine Creatinine Urine Total Protein Phenytoin Coronavirus (PCR) Crossmatch 07/12/20 07/12/20 07/12/20 05:14 05:14 05:44 WBC RBC 2.78 L Hgb 8.5 L Hct 25.3 L MCHC RDW 16.7 H Lymph % (Auto) [place] % (Auto) Eos % (Auto) Lymph # [place] # Lymph # (Auto) [place] # (Auto) Eos # (Auto) Seg Neutrophils % Seg Neuts % (Manual) 81.0 H Lymphocytes % (Manual) 6.0 L Seg Neutrophils # Seg Neutrophils # Man Lymphocytes # (Manual) 0.6 L Monocytes % (Manual) 8.0 H Eosinophils % (Manual) Monocytes # (Manual) Eosinophils # (Manual) D-Dimer Heparin Anti-Xa Level ABG pH POC ABG pCO2 POC ABG pO2 ABG pO2 ABG HCO3 ABG O2 Saturation ABG Base Excess ABG Hemoglobin ABG Oxyhemoglobin VBG pH ABG Sodium ABG Potassium ABG Glucose Oxyhemoglobin Sodium Potassium Chloride Carbon Dioxide BUN 79 H Creatinine 2.2 H Glucose 131 H POC Glucose 116 H Lactic Acid Calcium Ferritin AST Alkaline Phosphatase Magnesium Lactate Dehydrogenase Total Creatine Kinase CK-MB (CK-2) C-Reactive Protein Total Protein Albumin Troponin T HDL Cholesterol Arterial Blood Glucose Urine WBC (Auto) Urine Creatinine Urine Total Protein Phenytoin Coronavirus (PCR) Crossmatch 07/12/20 07/12/20 07/13/20 11:32 17:53 00:18 WBC RBC Hgb Hct MCHC RDW Lymph % (Auto) [place] % (Auto) Eos % (Auto) Lymph # [place] # Lymph # (Auto) [place] # (Auto) Eos # (Auto) Seg Neutrophils % Seg Neuts % (Manual) Lymphocytes % (Manual) Seg Neutrophils # Seg Neutrophils # Man Lymphocytes # (Manual) Monocytes % (Manual) Eosinophils % (Manual) Monocytes # (Manual) Eosinophils # (Manual) D-Dimer Heparin Anti-Xa Level ABG pH POC ABG pCO2 POC ABG pO2 ABG pO2 ABG HCO3 ABG O2 Saturation ABG Base Excess ABG Hemoglobin ABG Oxyhemoglobin VBG pH ABG Sodium ABG Potassium ABG Glucose Oxyhemoglobin Sodium Potassium Chloride Carbon Dioxide BUN Creatinine Glucose POC Glucose 132 H 155 H 162 H Lactic Acid Calcium Ferritin AST Alkaline Phosphatase Magnesium Lactate Dehydrogenase Total Creatine Kinase CK-MB (CK-2) C-Reactive Protein Total Protein Albumin Troponin T HDL Cholesterol Arterial Blood Glucose Urine WBC (Auto) Urine Creatinine Urine Total Protein Phenytoin Coronavirus (PCR) Crossmatch 07/13/20 07/13/20 07/13/20 04:53 04:53 06:14 WBC RBC 2.86 L Hgb 8.4 L Hct 25.7 L MCHC RDW 16.8 H Lymph % (Auto) [place] % (Auto) Eos % (Auto) Lymph # [place] # Lymph # (Auto) [place] # (Auto) Eos # (Auto) Seg Neutrophils % Seg Neuts % (Manual) 84.0 H Lymphocytes % (Manual) 7.0 L Seg Neutrophils # Seg Neutrophils # Man Lymphocytes # (Manual) 0.6 L Monocytes % (Manual) Eosinophils % (Manual) Monocytes # (Manual) Eosinophils # (Manual) D-Dimer Heparin Anti-Xa Level ABG pH POC ABG pCO2 POC ABG pO2 ABG pO2 ABG HCO3 ABG O2 Saturation ABG Base Excess ABG Hemoglobin ABG Oxyhemoglobin VBG pH ABG Sodium ABG Potassium ABG Glucose Oxyhemoglobin Sodium 136 L Potassium Chloride Carbon Dioxide BUN 78 H Creatinine 2.0 H Glucose 130 H POC Glucose 141 H Lactic Acid Calcium Ferritin AST Alkaline Phosphatase Magnesium Lactate Dehydrogenase Total Creatine Kinase CK-MB (CK-2) C-Reactive Protein Total Protein Albumin Troponin T HDL Cholesterol Arterial Blood Glucose Urine WBC (Auto) Urine Creatinine Urine Total Protein Phenytoin Coronavirus (PCR) Crossmatch 07/13/20 07/13/20 07/14/20 12:50 18:27 00:22 WBC RBC Hgb Hct MCHC RDW Lymph % (Auto) [place] % (Auto) Eos % (Auto) Lymph # [place] # Lymph # (Auto) [place] # (Auto) Eos # (Auto) Seg Neutrophils % Seg Neuts % (Manual) Lymphocytes % (Manual) Seg Neutrophils # Seg Neutrophils # Man Lymphocytes # (Manual) Monocytes % (Manual) Eosinophils % (Manual) Monocytes # (Manual) Eosinophils # (Manual) D-Dimer Heparin Anti-Xa Level ABG pH POC ABG pCO2 POC ABG pO2 ABG pO2 ABG HCO3 ABG O2 Saturation ABG Base Excess ABG Hemoglobin ABG Oxyhemoglobin VBG pH ABG Sodium ABG Potassium ABG Glucose Oxyhemoglobin Sodium Potassium Chloride Carbon Dioxide BUN Creatinine Glucose POC Glucose 146 H 149 H 157 H Lactic Acid Calcium Ferritin AST Alkaline Phosphatase Magnesium Lactate Dehydrogenase Total Creatine Kinase CK-MB (CK-2) C-Reactive Protein Total Protein Albumin Troponin T HDL Cholesterol Arterial Blood Glucose Urine WBC (Auto) Urine Creatinine Urine Total Protein Phenytoin Coronavirus (PCR) Crossmatch 07/14/20 07/14/20 07/14/20 05:43 08:04 12:12 WBC RBC Hgb Hct MCHC RDW Lymph % (Auto) [place] % (Auto) Eos % (Auto) Lymph # [place] # Lymph # (Auto) [place] # (Auto) Eos # (Auto) Seg Neutrophils % Seg Neuts % (Manual) Lymphocytes % (Manual) Seg Neutrophils # Seg Neutrophils # Man Lymphocytes # (Manual) Monocytes % (Manual) Eosinophils % (Manual) Monocytes # (Manual) Eosinophils # (Manual) D-Dimer Heparin Anti-Xa Level ABG pH POC ABG pCO2 POC ABG pO2 ABG pO2 ABG HCO3 ABG O2 Saturation ABG Base Excess ABG Hemoglobin ABG Oxyhemoglobin VBG pH ABG Sodium ABG Potassium ABG Glucose Oxyhemoglobin Sodium Potassium Chloride Carbon Dioxide BUN Creatinine Glucose POC Glucose 169 H 185 H Lactic Acid Calcium Ferritin AST Alkaline Phosphatase Magnesium Lactate Dehydrogenase Total Creatine Kinase CK-MB (CK-2) C-Reactive Protein Total Protein Albumin Troponin T HDL Cholesterol Arterial Blood Glucose Urine WBC (Auto) Urine Creatinine Urine Total Protein Phenytoin Coronavirus (PCR) Positive A Crossmatch 07/14/20 07/15/20 07/15/20 17:23 00:04 06:06 WBC RBC Hgb Hct MCHC RDW Lymph % (Auto) [place] % (Auto) Eos % (Auto) Lymph # [place] # Lymph # (Auto) [place] # (Auto) Eos # (Auto) Seg Neutrophils % Seg Neuts % (Manual) Lymphocytes % (Manual) Seg Neutrophils # Seg Neutrophils # Man Lymphocytes # (Manual) Monocytes % (Manual) Eosinophils % (Manual) Monocytes # (Manual) Eosinophils # (Manual) D-Dimer Heparin Anti-Xa Level ABG pH POC ABG pCO2 POC ABG pO2 ABG pO2 ABG HCO3 ABG O2 Saturation ABG Base Excess ABG Hemoglobin ABG Oxyhemoglobin VBG pH ABG Sodium ABG Potassium ABG Glucose Oxyhemoglobin Sodium Potassium Chloride Carbon Dioxide BUN Creatinine Glucose POC Glucose 138 H 121 H 140 H Lactic Acid Calcium Ferritin AST Alkaline Phosphatase Magnesium Lactate Dehydrogenase Total Creatine Kinase CK-MB (CK-2) C-Reactive Protein Total Protein Albumin Troponin T HDL Cholesterol Arterial Blood Glucose Urine WBC (Auto) Urine Creatinine Urine Total Protein Phenytoin Coronavirus (PCR) Crossmatch 07/15/20 07/15/20 07/15/20 12:00 17:53 23:53 WBC RBC Hgb Hct MCHC RDW Lymph % (Auto) [place] % (Auto) Eos % (Auto) Lymph # [place] # Lymph # (Auto) [place] # (Auto) Eos # (Auto) Seg Neutrophils % Seg Neuts % (Manual) Lymphocytes % (Manual) Seg Neutrophils # Seg Neutrophils # Man Lymphocytes # (Manual) Monocytes % (Manual) Eosinophils % (Manual) Monocytes # (Manual) Eosinophils # (Manual) D-Dimer Heparin Anti-Xa Level ABG pH POC ABG pCO2 POC ABG pO2 ABG pO2 ABG HCO3 ABG O2 Saturation ABG Base Excess ABG Hemoglobin ABG Oxyhemoglobin VBG pH ABG Sodium ABG Potassium ABG Glucose Oxyhemoglobin Sodium Potassium Chloride Carbon Dioxide BUN Creatinine Glucose POC Glucose 137 H 161 H 156 H Lactic Acid Calcium Ferritin AST Alkaline Phosphatase Magnesium Lactate Dehydrogenase Total Creatine Kinase CK-MB (CK-2) C-Reactive Protein Total Protein Albumin Troponin T HDL Cholesterol Arterial Blood Glucose Urine WBC (Auto) Urine Creatinine Urine Total Protein Phenytoin Coronavirus (PCR) Crossmatch 07/16/20 07/16/20 07/17/20 05:26 17:44 00:07 WBC RBC Hgb Hct MCHC RDW Lymph % (Auto) [place] % (Auto) Eos % (Auto) Lymph # [place] # Lymph # (Auto) [place] # (Auto) Eos # (Auto) Seg Neutrophils % Seg Neuts % (Manual) Lymphocytes % (Manual) Seg Neutrophils # Seg Neutrophils # Man Lymphocytes # (Manual) Monocytes % (Manual) Eosinophils % (Manual) Monocytes # (Manual) Eosinophils # (Manual) D-Dimer Heparin Anti-Xa Level ABG pH POC ABG pCO2 POC ABG pO2 ABG pO2 ABG HCO3 ABG O2 Saturation ABG Base Excess ABG Hemoglobin ABG Oxyhemoglobin VBG pH ABG Sodium ABG Potassium ABG Glucose Oxyhemoglobin Sodium Potassium Chloride Carbon Dioxide BUN Creatinine Glucose POC Glucose 152 H 126 H 189 H Lactic Acid Calcium Ferritin AST Alkaline Phosphatase Magnesium Lactate Dehydrogenase Total Creatine Kinase CK-MB (CK-2) C-Reactive Protein Total Protein Albumin Troponin T HDL Cholesterol Arterial Blood Glucose Urine WBC (Auto) Urine Creatinine Urine Total Protein Phenytoin Coronavirus (PCR) Crossmatch 07/17/20 07/17/20 07/17/20 12:06 18:20 23:25 WBC RBC Hgb Hct MCHC RDW Lymph % (Auto) [place] % (Auto) Eos % (Auto) Lymph # [place] # Lymph # (Auto) [place] # (Auto) Eos # (Auto) Seg Neutrophils % Seg Neuts % (Manual) Lymphocytes % (Manual) Seg Neutrophils # Seg Neutrophils # Man Lymphocytes # (Manual) Monocytes % (Manual) Eosinophils % (Manual) Monocytes # (Manual) Eosinophils # (Manual) D-Dimer Heparin Anti-Xa Level ABG pH POC ABG pCO2 POC ABG pO2 ABG pO2 ABG HCO3 ABG O2 Saturation ABG Base Excess ABG Hemoglobin ABG Oxyhemoglobin VBG pH ABG Sodium ABG Potassium ABG Glucose Oxyhemoglobin Sodium Potassium Chloride Carbon Dioxide BUN Creatinine Glucose POC Glucose 155 H 206 H 161 H Lactic Acid Calcium Ferritin AST Alkaline Phosphatase Magnesium Lactate Dehydrogenase Total Creatine Kinase CK-MB (CK-2) C-Reactive Protein Total Protein Albumin Troponin T HDL Cholesterol Arterial Blood Glucose Urine WBC (Auto) Urine Creatinine Urine Total Protein Phenytoin Coronavirus (PCR) Crossmatch 07/18/20 07/18/20 07/18/20 04:24 05:16 11:53 WBC RBC Hgb Hct MCHC RDW Lymph % (Auto) [place] % (Auto) Eos % (Auto) Lymph # [place] # Lymph # (Auto) [place] # (Auto) Eos # (Auto) Seg Neutrophils % Seg Neuts % (Manual) Lymphocytes % (Manual) Seg Neutrophils # Seg Neutrophils # Man Lymphocytes # (Manual) Monocytes % (Manual) Eosinophils % (Manual) Monocytes # (Manual) Eosinophils # (Manual) D-Dimer Heparin Anti-Xa Level ABG pH POC ABG pCO2 POC ABG pO2 ABG pO2 ABG HCO3 ABG O2 Saturation ABG Base Excess ABG Hemoglobin 8.8 L ABG Oxyhemoglobin VBG pH ABG Sodium 131.6 L ABG Potassium 4.9 H ABG Glucose 131 H Oxyhemoglobin Sodium Potassium Chloride Carbon Dioxide BUN Creatinine Glucose POC Glucose 140 H 176 H Lactic Acid Calcium Ferritin AST Alkaline Phosphatase Magnesium Lactate Dehydrogenase Total Creatine Kinase CK-MB (CK-2) C-Reactive Protein Total Protein Albumin Troponin T HDL Cholesterol Arterial Blood Glucose 131 H Urine WBC (Auto) Urine Creatinine Urine Total Protein Phenytoin Coronavirus (PCR) Crossmatch 07/18/20 07/18/20 07/19/20 18:11 23:51 01:05 WBC RBC 2.76 L Hgb 7.9 L Hct 24.5 L MCHC RDW 17.6 H Lymph % (Auto) 11.6 L [place] % (Auto) 13.1 H Eos % (Auto) Lymph # [place] # Lymph # (Auto) 1.0 L [place] # (Auto) 1.1 H Eos # (Auto) Seg Neutrophils % 70.9 H Seg Neuts % (Manual) Lymphocytes % (Manual) Seg Neutrophils # Seg Neutrophils # Man Lymphocytes # (Manual) Monocytes % (Manual) Eosinophils % (Manual) Monocytes # (Manual) Eosinophils # (Manual) D-Dimer Heparin Anti-Xa Level ABG pH POC ABG pCO2 POC ABG pO2 ABG pO2 ABG HCO3 ABG O2 Saturation ABG Base Excess ABG Hemoglobin ABG Oxyhemoglobin VBG pH ABG Sodium ABG Potassium ABG Glucose Oxyhemoglobin Sodium Potassium Chloride Carbon Dioxide BUN Creatinine Glucose POC Glucose 143 H 159 H Lactic Acid Calcium Ferritin AST Alkaline Phosphatase Magnesium Lactate Dehydrogenase Total Creatine Kinase CK-MB (CK-2) C-Reactive Protein Total Protein Albumin Troponin T HDL Cholesterol Arterial Blood Glucose Urine WBC (Auto) Urine Creatinine Urine Total Protein Phenytoin Coronavirus (PCR) Crossmatch 07/19/20 07/19/20 07/19/20 01:05 05:54 12:46 WBC RBC Hgb Hct MCHC RDW Lymph % (Auto) [place] % (Auto) Eos % (Auto) Lymph # [place] # Lymph # (Auto) [place] # (Auto) Eos # (Auto) Seg Neutrophils % Seg Neuts % (Manual) Lymphocytes % (Manual) Seg Neutrophils # Seg Neutrophils # Man Lymphocytes # (Manual) Monocytes % (Manual) Eosinophils % (Manual) Monocytes # (Manual) Eosinophils # (Manual) D-Dimer Heparin Anti-Xa Level ABG pH POC ABG pCO2 POC ABG pO2 ABG pO2 ABG HCO3 ABG O2 Saturation ABG Base Excess ABG Hemoglobin ABG Oxyhemoglobin VBG pH ABG Sodium ABG Potassium ABG Glucose Oxyhemoglobin Sodium Potassium Chloride Carbon Dioxide BUN 86 H Creatinine 1.7 H Glucose 149 H POC Glucose 176 H 127 H Lactic Acid Calcium Ferritin AST Alkaline Phosphatase Magnesium Lactate Dehydrogenase Total Creatine Kinase CK-MB (CK-2) C-Reactive Protein Total Protein Albumin Troponin T HDL Cholesterol Arterial Blood Glucose Urine WBC (Auto) Urine Creatinine Urine Total Protein Phenytoin Coronavirus (PCR) Crossmatch 07/19/20 07/20/20 07/20/20 17:48 00:34 05:28 WBC RBC Hgb Hct MCHC RDW Lymph % (Auto) [place] % (Auto) Eos % (Auto) Lymph # [place] # Lymph # (Auto) [place] # (Auto) Eos # (Auto) Seg Neutrophils % Seg Neuts % (Manual) Lymphocytes % (Manual) Seg Neutrophils # Seg Neutrophils # Man Lymphocytes # (Manual) Monocytes % (Manual) Eosinophils % (Manual) Monocytes # (Manual) Eosinophils # (Manual) D-Dimer Heparin Anti-Xa Level ABG pH POC ABG pCO2 POC ABG pO2 ABG pO2 ABG HCO3 ABG O2 Saturation ABG Base Excess ABG Hemoglobin ABG Oxyhemoglobin VBG pH ABG Sodium ABG Potassium ABG Glucose Oxyhemoglobin Sodium Potassium Chloride Carbon Dioxide BUN Creatinine Glucose POC Glucose 123 H 147 H 110 H Lactic Acid Calcium Ferritin AST Alkaline Phosphatase Magnesium Lactate Dehydrogenase Total Creatine Kinase CK-MB (CK-2) C-Reactive Protein Total Protein Albumin Troponin T HDL Cholesterol Arterial Blood Glucose Urine WBC (Auto) Urine Creatinine Urine Total Protein Phenytoin Coronavirus (PCR) Crossmatch 07/20/20 07/20/20 07/21/20 12:10 17:00 00:11 WBC RBC Hgb Hct MCHC RDW Lymph % (Auto) [place] % (Auto) Eos % (Auto) Lymph # [place] # Lymph # (Auto) [place] # (Auto) Eos # (Auto) Seg Neutrophils % Seg Neuts % (Manual) Lymphocytes % (Manual) Seg Neutrophils # Seg Neutrophils # Man Lymphocytes # (Manual) Monocytes % (Manual) Eosinophils % (Manual) Monocytes # (Manual) Eosinophils # (Manual) D-Dimer Heparin Anti-Xa Level ABG pH POC ABG pCO2 POC ABG pO2 ABG pO2 ABG HCO3 ABG O2 Saturation ABG Base Excess ABG Hemoglobin ABG Oxyhemoglobin VBG pH ABG Sodium ABG Potassium ABG Glucose Oxyhemoglobin Sodium Potassium Chloride Carbon Dioxide BUN Creatinine Glucose POC Glucose 149 H 173 H 128 H Lactic Acid Calcium Ferritin AST Alkaline Phosphatase Magnesium Lactate Dehydrogenase Total Creatine Kinase CK-MB (CK-2) C-Reactive Protein Total Protein Albumin Troponin T HDL Cholesterol Arterial Blood Glucose Urine WBC (Auto) Urine Creatinine Urine Total Protein Phenytoin Coronavirus (PCR) Crossmatch 07/21/20 07/21/20 07/21/20 05:30 12:21 18:17 WBC RBC Hgb Hct MCHC RDW Lymph % (Auto) [place] % (Auto) Eos % (Auto) Lymph # [place] # Lymph # (Auto) [place] # (Auto) Eos # (Auto) Seg Neutrophils % Seg Neuts % (Manual) Lymphocytes % (Manual) Seg Neutrophils # Seg Neutrophils # Man Lymphocytes # (Manual) Monocytes % (Manual) Eosinophils % (Manual) Monocytes # (Manual) Eosinophils # (Manual) D-Dimer Heparin Anti-Xa Level ABG pH POC ABG pCO2 POC ABG pO2 ABG pO2 ABG HCO3 ABG O2 Saturation ABG Base Excess ABG Hemoglobin ABG Oxyhemoglobin VBG pH ABG Sodium ABG Potassium ABG Glucose Oxyhemoglobin Sodium Potassium Chloride Carbon Dioxide BUN Creatinine Glucose POC Glucose 153 H 144 H 160 H Lactic Acid Calcium Ferritin AST Alkaline Phosphatase Magnesium Lactate Dehydrogenase Total Creatine Kinase CK-MB (CK-2) C-Reactive Protein Total Protein Albumin Troponin T HDL Cholesterol Arterial Blood Glucose Urine WBC (Auto) Urine Creatinine Urine Total Protein Phenytoin Coronavirus (PCR) Crossmatch 07/22/20 07/22/20 07/22/20 00:45 05:52 12:03 WBC RBC Hgb Hct MCHC RDW Lymph % (Auto) [place] % (Auto) Eos % (Auto) Lymph # [place] # Lymph # (Auto) [place] # (Auto) Eos # (Auto) Seg Neutrophils % Seg Neuts % (Manual) Lymphocytes % (Manual) Seg Neutrophils # Seg Neutrophils # Man Lymphocytes # (Manual) Monocytes % (Manual) Eosinophils % (Manual) Monocytes # (Manual) Eosinophils # (Manual) D-Dimer Heparin Anti-Xa Level ABG pH POC ABG pCO2 POC ABG pO2 ABG pO2 ABG HCO3 ABG O2 Saturation ABG Base Excess ABG Hemoglobin ABG Oxyhemoglobin VBG pH ABG Sodium ABG Potassium ABG Glucose Oxyhemoglobin Sodium Potassium Chloride Carbon Dioxide BUN Creatinine Glucose POC Glucose 128 H 126 H 157 H Lactic Acid Calcium Ferritin AST Alkaline Phosphatase Magnesium Lactate Dehydrogenase Total Creatine Kinase CK-MB (CK-2) C-Reactive Protein Total Protein Albumin Troponin T HDL Cholesterol Arterial Blood Glucose Urine WBC (Auto) Urine Creatinine Urine Total Protein Phenytoin Coronavirus (PCR) Crossmatch 07/22/20 07/22/20 07/23/20 18:23 23:20 06:06 WBC RBC Hgb Hct MCHC RDW Lymph % (Auto) [place] % (Auto) Eos % (Auto) Lymph # [place] # Lymph # (Auto) [place] # (Auto) Eos # (Auto) Seg Neutrophils % Seg Neuts % (Manual) Lymphocytes % (Manual) Seg Neutrophils # Seg Neutrophils # Man Lymphocytes # (Manual) Monocytes % (Manual) Eosinophils % (Manual) Monocytes # (Manual) Eosinophils # (Manual) D-Dimer Heparin Anti-Xa Level ABG pH POC ABG pCO2 POC ABG pO2 ABG pO2 ABG HCO3 ABG O2 Saturation ABG Base Excess ABG Hemoglobin ABG Oxyhemoglobin VBG pH ABG Sodium ABG Potassium ABG Glucose Oxyhemoglobin Sodium Potassium Chloride Carbon Dioxide BUN Creatinine Glucose POC Glucose 152 H 122 H 143 H Lactic Acid Calcium Ferritin AST Alkaline Phosphatase Magnesium Lactate Dehydrogenase Total Creatine Kinase CK-MB (CK-2) C-Reactive Protein Total Protein Albumin Troponin T HDL Cholesterol Arterial Blood Glucose Urine WBC (Auto) Urine Creatinine Urine Total Protein Phenytoin Coronavirus (PCR) Crossmatch 07/23/20 07/23/20 07/23/20 12:11 17:38 19:23 WBC RBC Hgb Hct MCHC RDW Lymph % (Auto) [place] % (Auto) Eos % (Auto) Lymph # [place] # Lymph # (Auto) [place] # (Auto) Eos # (Auto) Seg Neutrophils % Seg Neuts % (Manual) Lymphocytes % (Manual) Seg Neutrophils # Seg Neutrophils # Man Lymphocytes # (Manual) Monocytes % (Manual) Eosinophils % (Manual) Monocytes # (Manual) Eosinophils # (Manual) D-Dimer Heparin Anti-Xa Level ABG pH POC ABG pCO2 POC ABG pO2 ABG pO2 ABG HCO3 ABG O2 Saturation ABG Base Excess ABG Hemoglobin ABG Oxyhemoglobin VBG pH ABG Sodium ABG Potassium ABG Glucose Oxyhemoglobin Sodium 129 L D Potassium 5.8 H Chloride 95.6 L Carbon Dioxide BUN 98 H Creatinine 2.1 H Glucose 167 H POC Glucose 210 H 181 H Lactic Acid Calcium Ferritin AST Alkaline Phosphatase Magnesium Lactate Dehydrogenase Total Creatine Kinase CK-MB (CK-2) C-Reactive Protein Total Protein Albumin 2.2 L Troponin T HDL Cholesterol Arterial Blood Glucose Urine WBC (Auto) Urine Creatinine Urine Total Protein Phenytoin Coronavirus (PCR) Crossmatch 07/24/20 07/24/20 07/24/20 00:00 04:29 04:29 WBC RBC 2.53 L Hgb 7.5 L Hct 22.8 L MCHC RDW 16.8 H Lymph % (Auto) 9.4 L [place] % (Auto) 10.4 H Eos % (Auto) 5.9 H Lymph # [place] # Lymph # (Auto) 0.8 L [place] # (Auto) 0.9 H Eos # (Auto) 0.5 H Seg Neutrophils % 73.5 H Seg Neuts % (Manual) Lymphocytes % (Manual) Seg Neutrophils # Seg Neutrophils # Man Lymphocytes # (Manual) Monocytes % (Manual) Eosinophils % (Manual) Monocytes # (Manual) Eosinophils # (Manual) D-Dimer Heparin Anti-Xa Level ABG pH POC ABG pCO2 POC ABG pO2 ABG pO2 ABG HCO3 ABG O2 Saturation ABG Base Excess ABG Hemoglobin ABG Oxyhemoglobin VBG pH ABG Sodium ABG Potassium ABG Glucose Oxyhemoglobin Sodium Potassium Chloride Carbon Dioxide BUN Creatinine Glucose POC Glucose 201 H Lactic Acid Calcium Ferritin AST Alkaline Phosphatase Magnesium Lactate Dehydrogenase Total Creatine Kinase CK-MB (CK-2) C-Reactive Protein Total Protein Albumin Troponin T HDL Cholesterol Arterial Blood Glucose Urine WBC (Auto) Urine Creatinine Urine Total Protein Phenytoin 9.4 L Coronavirus (PCR) Crossmatch 07/24/20 07/24/20 07/24/20 04:29 05:11 12:14 WBC RBC Hgb Hct MCHC RDW Lymph % (Auto) [place] % (Auto) Eos % (Auto) Lymph # [place] # Lymph # (Auto) [place] # (Auto) Eos # (Auto) Seg Neutrophils % Seg Neuts % (Manual) Lymphocytes % (Manual) Seg Neutrophils # Seg Neutrophils # Man Lymphocytes # (Manual) Monocytes % (Manual) Eosinophils % (Manual) Monocytes # (Manual) Eosinophils # (Manual) D-Dimer Heparin Anti-Xa Level ABG pH POC ABG pCO2 POC ABG pO2 ABG pO2 ABG HCO3 ABG O2 Saturation ABG Base Excess ABG Hemoglobin ABG Oxyhemoglobin VBG pH ABG Sodium ABG Potassium ABG Glucose Oxyhemoglobin Sodium 134 L Potassium 5.5 H Chloride Carbon Dioxide BUN 97 H Creatinine 2.2 H Glucose 149 H POC Glucose 142 H 146 H Lactic Acid Calcium Ferritin AST Alkaline Phosphatase Magnesium 2.60 H Lactate Dehydrogenase Total Creatine Kinase CK-MB (CK-2) C-Reactive Protein Total Protein Albumin Troponin T HDL Cholesterol Arterial Blood Glucose Urine WBC (Auto) Urine Creatinine Urine Total Protein Phenytoin Coronavirus (PCR) Crossmatch 07/24/20 07/24/20 07/25/20 18:12 21:00 00:08 WBC RBC Hgb Hct MCHC RDW Lymph % (Auto) [place] % (Auto) Eos % (Auto) Lymph # [place] # Lymph # (Auto) [place] # (Auto) Eos # (Auto) Seg Neutrophils % Seg Neuts % (Manual) Lymphocytes % (Manual) Seg Neutrophils # Seg Neutrophils # Man Lymphocytes # (Manual) Monocytes % (Manual) Eosinophils % (Manual) Monocytes # (Manual) Eosinophils # (Manual) D-Dimer Heparin Anti-Xa Level ABG pH POC ABG pCO2 POC ABG pO2 ABG pO2 ABG HCO3 ABG O2 Saturation ABG Base Excess ABG Hemoglobin ABG Oxyhemoglobin VBG pH ABG Sodium ABG Potassium ABG Glucose Oxyhemoglobin Sodium Potassium Chloride Carbon Dioxide BUN Creatinine Glucose POC Glucose 182 H 170 H 129 H Lactic Acid Calcium Ferritin AST Alkaline Phosphatase Magnesium Lactate Dehydrogenase Total Creatine Kinase CK-MB (CK-2) C-Reactive Protein Total Protein Albumin Troponin T HDL Cholesterol Arterial Blood Glucose Urine WBC (Auto) Urine Creatinine Urine Total Protein Phenytoin Coronavirus (PCR) Crossmatch 07/25/20 07/25/20 07/25/20 04:24 04:24 12:19 WBC RBC 2.51 L Hgb 7.5 L Hct 22.3 L MCHC RDW 17.4 H Lymph % (Auto) [place] % (Auto) Eos % (Auto) Lymph # [place] # Lymph # (Auto) [place] # (Auto) Eos # (Auto) Seg Neutrophils % Seg Neuts % (Manual) Lymphocytes % (Manual) Seg Neutrophils # Seg Neutrophils # Man Lymphocytes # (Manual) Monocytes % (Manual) Eosinophils % (Manual) Monocytes # (Manual) Eosinophils # (Manual) D-Dimer Heparin Anti-Xa Level ABG pH POC ABG pCO2 POC ABG pO2 ABG pO2 ABG HCO3 ABG O2 Saturation ABG Base Excess ABG Hemoglobin ABG Oxyhemoglobin VBG pH ABG Sodium ABG Potassium ABG Glucose Oxyhemoglobin Sodium 132 L Potassium Chloride 95.1 L Carbon Dioxide 21 L BUN 95 H Creatinine 2.5 H Glucose 108 H POC Glucose 122 H Lactic Acid Calcium Ferritin AST Alkaline Phosphatase Magnesium Lactate Dehydrogenase Total Creatine Kinase CK-MB (CK-2) C-Reactive Protein Total Protein Albumin Troponin T HDL Cholesterol Arterial Blood Glucose Urine WBC (Auto) Urine Creatinine Urine Total Protein Phenytoin Coronavirus (PCR) Crossmatch 07/25/20 07/25/20 07/26/20 18:11 23:24 04:22 WBC RBC Hgb Hct MCHC RDW Lymph % (Auto) [place] % (Auto) Eos % (Auto) Lymph # [place] # Lymph # (Auto) [place] # (Auto) Eos # (Auto) Seg Neutrophils % Seg Neuts % (Manual) Lymphocytes % (Manual) Seg Neutrophils # Seg Neutrophils # Man Lymphocytes # (Manual) Monocytes % (Manual) Eosinophils % (Manual) Monocytes # (Manual) Eosinophils # (Manual) D-Dimer Heparin Anti-Xa Level ABG pH POC ABG pCO2 POC ABG pO2 ABG pO2 ABG HCO3 ABG O2 Saturation ABG Base Excess ABG Hemoglobin ABG Oxyhemoglobin VBG pH ABG Sodium ABG Potassium ABG Glucose Oxyhemoglobin Sodium 132 L Potassium Chloride 96.2 L Carbon Dioxide 21 L BUN 99 H Creatinine 2.5 H Glucose 132 H POC Glucose 137 H 117 H Lactic Acid Calcium 8.2 L Ferritin AST Alkaline Phosphatase Magnesium Lactate Dehydrogenase Total Creatine Kinase CK-MB (CK-2) C-Reactive Protein Total Protein Albumin Troponin T HDL Cholesterol Arterial Blood Glucose Urine WBC (Auto) Urine Creatinine Urine Total Protein Phenytoin Coronavirus (PCR) Crossmatch 07/26/20 07/26/20 07/26/20 05:58 12:21 17:31 WBC RBC Hgb Hct MCHC RDW Lymph % (Auto) [place] % (Auto) Eos % (Auto) Lymph # [place] # Lymph # (Auto) [place] # (Auto) Eos # (Auto) Seg Neutrophils % Seg Neuts % (Manual) Lymphocytes % (Manual) Seg Neutrophils # Seg Neutrophils # Man Lymphocytes # (Manual) Monocytes % (Manual) Eosinophils % (Manual) Monocytes # (Manual) Eosinophils # (Manual) D-Dimer Heparin Anti-Xa Level ABG pH POC ABG pCO2 POC ABG pO2 ABG pO2 ABG HCO3 ABG O2 Saturation ABG Base Excess ABG Hemoglobin ABG Oxyhemoglobin VBG pH ABG Sodium ABG Potassium ABG Glucose Oxyhemoglobin Sodium Potassium Chloride Carbon Dioxide BUN Creatinine Glucose POC Glucose 110 H 142 H 180 H Lactic Acid Calcium Ferritin AST Alkaline Phosphatase Magnesium Lactate Dehydrogenase Total Creatine Kinase CK-MB (CK-2) C-Reactive Protein Total Protein Albumin Troponin T HDL Cholesterol Arterial Blood Glucose Urine WBC (Auto) Urine Creatinine Urine Total Protein Phenytoin Coronavirus (PCR) Crossmatch 07/26/20 07/27/20 07/27/20 23:36 03:36 05:36 WBC RBC 2.49 L Hgb 7.3 L Hct 22.2 L MCHC RDW 17.2 H Lymph % (Auto) 11.0 L [place] % (Auto) 11.7 H Eos % (Auto) Lymph # [place] # Lymph # (Auto) 0.8 L [place] # (Auto) 0.9 H Eos # (Auto) Seg Neutrophils % 72.3 H Seg Neuts % (Manual) Lymphocytes % (Manual) Seg Neutrophils # Seg Neutrophils # Man Lymphocytes # (Manual) Monocytes % (Manual) Eosinophils % (Manual) Monocytes # (Manual) Eosinophils # (Manual) D-Dimer Heparin Anti-Xa Level ABG pH POC ABG pCO2 POC ABG pO2 ABG pO2 ABG HCO3 ABG O2 Saturation ABG Base Excess ABG Hemoglobin ABG Oxyhemoglobin VBG pH ABG Sodium ABG Potassium ABG Glucose Oxyhemoglobin Sodium Potassium Chloride Carbon Dioxide BUN Creatinine Glucose POC Glucose 162 H 118 H Lactic Acid Calcium Ferritin AST Alkaline Phosphatase Magnesium Lactate Dehydrogenase Total Creatine Kinase CK-MB (CK-2) C-Reactive Protein Total Protein Albumin Troponin T HDL Cholesterol Arterial Blood Glucose Urine WBC (Auto) Urine Creatinine Urine Total Protein Phenytoin Coronavirus (PCR) Crossmatch 07/27/20 07/27/20 07/27/20 05:36 12:19 17:36 WBC RBC Hgb Hct MCHC RDW Lymph % (Auto) [place] % (Auto) Eos % (Auto) Lymph # [place] # Lymph # (Auto) [place] # (Auto) Eos # (Auto) Seg Neutrophils % Seg Neuts % (Manual) Lymphocytes % (Manual) Seg Neutrophils # Seg Neutrophils # Man Lymphocytes # (Manual) Monocytes % (Manual) Eosinophils % (Manual) Monocytes # (Manual) Eosinophils # (Manual) D-Dimer Heparin Anti-Xa Level ABG pH POC ABG pCO2 POC ABG pO2 ABG pO2 ABG HCO3 ABG O2 Saturation ABG Base Excess ABG Hemoglobin ABG Oxyhemoglobin VBG pH ABG Sodium ABG Potassium ABG Glucose Oxyhemoglobin Sodium 135 L Potassium 5.3 H Chloride Carbon Dioxide 21 L BUN 103 H Creatinine 2.6 H Glucose 113 H POC Glucose 131 H 151 H Lactic Acid Calcium 8.1 L Ferritin AST Alkaline Phosphatase Magnesium Lactate Dehydrogenase Total Creatine Kinase CK-MB (CK-2) C-Reactive Protein Total Protein Albumin Troponin T HDL Cholesterol Arterial Blood Glucose Urine WBC (Auto) Urine Creatinine Urine Total Protein Phenytoin Coronavirus (PCR) Crossmatch 07/27/20 07/28/20 07/28/20 23:29 04:30 04:30 WBC RBC 2.50 L Hgb 7.3 L Hct 22.2 L MCHC RDW 17.3 H Lymph % (Auto) 8.7 L [place] % (Auto) 8.3 H Eos % (Auto) Lymph # [place] # Lymph # (Auto) 0.7 L [place] # (Auto) Eos # (Auto) Seg Neutrophils % 79.1 H Seg Neuts % (Manual) Lymphocytes % (Manual) Seg Neutrophils # Seg Neutrophils # Man Lymphocytes # (Manual) Monocytes % (Manual) Eosinophils % (Manual) Monocytes # (Manual) Eosinophils # (Manual) D-Dimer Heparin Anti-Xa Level ABG pH POC ABG pCO2 POC ABG pO2 ABG pO2 ABG HCO3 ABG O2 Saturation ABG Base Excess ABG Hemoglobin ABG Oxyhemoglobin VBG pH ABG Sodium ABG Potassium ABG Glucose Oxyhemoglobin Sodium 135 L Potassium 5.2 H Chloride 96.8 L Carbon Dioxide 20 L BUN 107 H Creatinine 2.9 H Glucose POC Glucose 124 H Lactic Acid Calcium 8.2 L Ferritin AST Alkaline Phosphatase Magnesium 2.70 H Lactate Dehydrogenase Total Creatine Kinase CK-MB (CK-2) C-Reactive Protein Total Protein Albumin Troponin T HDL Cholesterol Arterial Blood Glucose Urine WBC (Auto) Urine Creatinine Urine Total Protein Phenytoin Coronavirus (PCR) Crossmatch 07/28/20 07/29/20 07/29/20 17:35 00:11 06:45 WBC RBC Hgb Hct MCHC RDW Lymph % (Auto) [place] % (Auto) Eos % (Auto) Lymph # [place] # Lymph # (Auto) [place] # (Auto) Eos # (Auto) Seg Neutrophils % Seg Neuts % (Manual) Lymphocytes % (Manual) Seg Neutrophils # Seg Neutrophils # Man Lymphocytes # (Manual) Monocytes % (Manual) Eosinophils % (Manual) Monocytes # (Manual) Eosinophils # (Manual) D-Dimer Heparin Anti-Xa Level ABG pH POC ABG pCO2 POC ABG pO2 ABG pO2 ABG HCO3 ABG O2 Saturation ABG Base Excess ABG Hemoglobin ABG Oxyhemoglobin VBG pH ABG Sodium ABG Potassium ABG Glucose Oxyhemoglobin Sodium Potassium Chloride Carbon Dioxide BUN Creatinine Glucose POC Glucose 146 H 143 H 179 H Lactic Acid Calcium Ferritin AST Alkaline Phosphatase Magnesium Lactate Dehydrogenase Total Creatine Kinase CK-MB (CK-2) C-Reactive Protein Total Protein Albumin Troponin T HDL Cholesterol Arterial Blood Glucose Urine WBC (Auto) Urine Creatinine Urine Total Protein Phenytoin Coronavirus (PCR) Crossmatch 07/29/20 07/29/20 07/29/20 11:54 13:01 13:01 WBC RBC 2.40 L Hgb 7.1 L Hct 20.9 L MCHC RDW 17.5 H Lymph % (Auto) [place] % (Auto) Eos % (Auto) Lymph # [place] # Lymph # (Auto) [place] # (Auto) Eos # (Auto) Seg Neutrophils % Seg Neuts % (Manual) 86.0 H Lymphocytes % (Manual) 6.0 L Seg Neutrophils # Seg Neutrophils # Man 8.9 H Lymphocytes # (Manual) 0.6 L Monocytes % (Manual) 8.0 H Eosinophils % (Manual) Monocytes # (Manual) Eosinophils # (Manual) D-Dimer Heparin Anti-Xa Level ABG pH POC ABG pCO2 POC ABG pO2 ABG pO2 ABG HCO3 ABG O2 Saturation ABG Base Excess ABG Hemoglobin ABG Oxyhemoglobin VBG pH ABG Sodium ABG Potassium ABG Glucose Oxyhemoglobin Sodium 129 L Potassium Chloride 92.9 L Carbon Dioxide BUN 112 H Creatinine 3.0 H Glucose 142 H POC Glucose 170 H Lactic Acid Calcium 7.9 L Ferritin AST Alkaline Phosphatase Magnesium Lactate Dehydrogenase Total Creatine Kinase CK-MB (CK-2) C-Reactive Protein Total Protein Albumin Troponin T HDL Cholesterol Arterial Blood Glucose Urine WBC (Auto) Urine Creatinine Urine Total Protein Phenytoin Coronavirus (PCR) Crossmatch 07/29/20 07/30/20 07/30/20 22:45 05:01 11:45 WBC RBC Hgb Hct MCHC RDW Lymph % (Auto) [place] % (Auto) Eos % (Auto) Lymph # [place] # Lymph # (Auto) [place] # (Auto) Eos # (Auto) Seg Neutrophils % Seg Neuts % (Manual) Lymphocytes % (Manual) Seg Neutrophils # Seg Neutrophils # Man Lymphocytes # (Manual) Monocytes % (Manual) Eosinophils % (Manual) Monocytes # (Manual) Eosinophils # (Manual) D-Dimer Heparin Anti-Xa Level ABG pH POC ABG pCO2 POC ABG pO2 ABG pO2 ABG HCO3 ABG O2 Saturation ABG Base Excess ABG Hemoglobin ABG Oxyhemoglobin VBG pH ABG Sodium ABG Potassium ABG Glucose Oxyhemoglobin Sodium Potassium Chloride Carbon Dioxide BUN Creatinine Glucose POC Glucose 129 H 150 H 130 H Lactic Acid Calcium Ferritin AST Alkaline Phosphatase Magnesium Lactate Dehydrogenase Total Creatine Kinase CK-MB (CK-2) C-Reactive Protein Total Protein Albumin Troponin T HDL Cholesterol Arterial Blood Glucose Urine WBC (Auto) Urine Creatinine Urine Total Protein Phenytoin Coronavirus (PCR) Crossmatch 07/30/20 07/30/20 07/30/20 17:54 21:26 23:58 WBC RBC Hgb Hct MCHC RDW Lymph % (Auto) [place] % (Auto) Eos % (Auto) Lymph # [place] # Lymph # (Auto) [place] # (Auto) Eos # (Auto) Seg Neutrophils % Seg Neuts % (Manual) Lymphocytes % (Manual) Seg Neutrophils # Seg Neutrophils # Man Lymphocytes # (Manual) Monocytes % (Manual) Eosinophils % (Manual) Monocytes # (Manual) Eosinophils # (Manual) D-Dimer Heparin Anti-Xa Level ABG pH POC ABG pCO2 POC ABG pO2 ABG pO2 ABG HCO3 ABG O2 Saturation ABG Base Excess ABG Hemoglobin ABG Oxyhemoglobin VBG pH ABG Sodium ABG Potassium ABG Glucose Oxyhemoglobin Sodium Potassium Chloride Carbon Dioxide BUN Creatinine Glucose POC Glucose 143 H 124 H 142 H Lactic Acid Calcium Ferritin AST Alkaline Phosphatase Magnesium Lactate Dehydrogenase Total Creatine Kinase CK-MB (CK-2) C-Reactive Protein Total Protein Albumin Troponin T HDL Cholesterol Arterial Blood Glucose Urine WBC (Auto) Urine Creatinine Urine Total Protein Phenytoin Coronavirus (PCR) Crossmatch 07/31/20 07/31/20 07/31/20 05:43 11:35 18:07 WBC RBC Hgb Hct MCHC RDW Lymph % (Auto) [place] % (Auto) Eos % (Auto) Lymph # [place] # Lymph # (Auto) [place] # (Auto) Eos # (Auto) Seg Neutrophils % Seg Neuts % (Manual) Lymphocytes % (Manual) Seg Neutrophils # Seg Neutrophils # Man Lymphocytes # (Manual) Monocytes % (Manual) Eosinophils % (Manual) Monocytes # (Manual) Eosinophils # (Manual) D-Dimer Heparin Anti-Xa Level ABG pH POC ABG pCO2 POC ABG pO2 ABG pO2 ABG HCO3 ABG O2 Saturation ABG Base Excess ABG Hemoglobin ABG Oxyhemoglobin VBG pH ABG Sodium ABG Potassium ABG Glucose Oxyhemoglobin Sodium Potassium Chloride Carbon Dioxide BUN Creatinine Glucose POC Glucose 152 H 179 H 129 H Lactic Acid Calcium Ferritin AST Alkaline Phosphatase Magnesium Lactate Dehydrogenase Total Creatine Kinase CK-MB (CK-2) C-Reactive Protein Total Protein Albumin Troponin T HDL Cholesterol Arterial Blood Glucose Urine WBC (Auto) Urine Creatinine Urine Total Protein Phenytoin Coronavirus (PCR) Crossmatch 07/31/20 07/31/20 08/01/20 21:30 22:12 00:25 WBC RBC Hgb Hct MCHC RDW Lymph % (Auto) [place] % (Auto) Eos % (Auto) Lymph # [place] # Lymph # (Auto) [place] # (Auto) Eos # (Auto) Seg Neutrophils % Seg Neuts % (Manual) Lymphocytes % (Manual) Seg Neutrophils # Seg Neutrophils # Man Lymphocytes # (Manual) Monocytes % (Manual) Eosinophils % (Manual) Monocytes # (Manual) Eosinophils # (Manual) D-Dimer Heparin Anti-Xa Level ABG pH POC ABG pCO2 POC ABG pO2 ABG pO2 ABG HCO3 ABG O2 Saturation ABG Base Excess ABG Hemoglobin ABG Oxyhemoglobin VBG pH ABG Sodium ABG Potassium ABG Glucose Oxyhemoglobin Sodium Potassium Chloride Carbon Dioxide BUN Creatinine Glucose POC Glucose 143 H 122 H 134 H Lactic Acid Calcium Ferritin AST Alkaline Phosphatase Magnesium Lactate Dehydrogenase Total Creatine Kinase CK-MB (CK-2) C-Reactive Protein Total Protein Albumin Troponin T HDL Cholesterol Arterial Blood Glucose Urine WBC (Auto) Urine Creatinine Urine Total Protein Phenytoin Coronavirus (PCR) Crossmatch 08/01/20 08/01/20 08/01/20 04:43 05:41 12:23 WBC RBC Hgb Hct MCHC RDW Lymph % (Auto) [place] % (Auto) Eos % (Auto) Lymph # [place] # Lymph # (Auto) [place] # (Auto) Eos # (Auto) Seg Neutrophils % Seg Neuts % (Manual) Lymphocytes % (Manual) Seg Neutrophils # Seg Neutrophils # Man Lymphocytes # (Manual) Monocytes % (Manual) Eosinophils % (Manual) Monocytes # (Manual) Eosinophils # (Manual) D-Dimer Heparin Anti-Xa Level ABG pH POC ABG pCO2 POC ABG pO2 ABG pO2 ABG HCO3 ABG O2 Saturation ABG Base Excess ABG Hemoglobin ABG Oxyhemoglobin VBG pH ABG Sodium ABG Potassium ABG Glucose Oxyhemoglobin Sodium 128 L Potassium 5.8 H Chloride 90.5 L Carbon Dioxide 19 L BUN 122 H Creatinine 3.4 H Glucose 124 H POC Glucose 130 H 128 H Lactic Acid Calcium 8.0 L Ferritin AST Alkaline Phosphatase Magnesium Lactate Dehydrogenase Total Creatine Kinase CK-MB (CK-2) C-Reactive Protein Total Protein Albumin Troponin T HDL Cholesterol Arterial Blood Glucose Urine WBC (Auto) Urine Creatinine Urine Total Protein Phenytoin Coronavirus (PCR) Crossmatch 08/01/20 08/02/20 08/02/20 17:28 00:06 05:32 WBC RBC Hgb Hct MCHC RDW Lymph % (Auto) [place] % (Auto) Eos % (Auto) Lymph # [place] # Lymph # (Auto) [place] # (Auto) Eos # (Auto) Seg Neutrophils % Seg Neuts % (Manual) Lymphocytes % (Manual) Seg Neutrophils # Seg Neutrophils # Man Lymphocytes # (Manual) Monocytes % (Manual) Eosinophils % (Manual) Monocytes # (Manual) Eosinophils # (Manual) D-Dimer Heparin Anti-Xa Level ABG pH POC ABG pCO2 POC ABG pO2 ABG pO2 ABG HCO3 ABG O2 Saturation ABG Base Excess ABG Hemoglobin ABG Oxyhemoglobin VBG pH ABG Sodium ABG Potassium ABG Glucose Oxyhemoglobin Sodium Potassium Chloride Carbon Dioxide BUN Creatinine Glucose POC Glucose 121 H 128 H 177 H Lactic Acid Calcium Ferritin AST Alkaline Phosphatase Magnesium Lactate Dehydrogenase Total Creatine Kinase CK-MB (CK-2) C-Reactive Protein Total Protein Albumin Troponin T HDL Cholesterol Arterial Blood Glucose Urine WBC (Auto) Urine Creatinine Urine Total Protein Phenytoin Coronavirus (PCR) Crossmatch 08/02/20 08/02/20 08/03/20 11:25 12:34 00:08 WBC RBC Hgb Hct MCHC RDW Lymph % (Auto) [place] % (Auto) Eos % (Auto) Lymph # [place] # Lymph # (Auto) [place] # (Auto) Eos # (Auto) Seg Neutrophils % Seg Neuts % (Manual) Lymphocytes % (Manual) Seg Neutrophils # Seg Neutrophils # Man Lymphocytes # (Manual) Monocytes % (Manual) Eosinophils % (Manual) Monocytes # (Manual) Eosinophils # (Manual) D-Dimer Heparin Anti-Xa Level ABG pH 7.344 L POC ABG pCO2 POC ABG pO2 ABG pO2 101.1 H ABG HCO3 ABG O2 Saturation ABG Base Excess -4.5 L ABG Hemoglobin 6.6 L ABG Oxyhemoglobin VBG pH ABG Sodium ABG Potassium ABG Glucose Oxyhemoglobin Sodium Potassium Chloride Carbon Dioxide BUN Creatinine Glucose POC Glucose 196 H 141 H Lactic Acid Calcium Ferritin AST Alkaline Phosphatase Magnesium Lactate Dehydrogenase Total Creatine Kinase CK-MB (CK-2) C-Reactive Protein Total Protein Albumin Troponin T HDL Cholesterol Arterial Blood Glucose Urine WBC (Auto) Urine Creatinine Urine Total Protein Phenytoin Coronavirus (PCR) Crossmatch 08/03/20 08/03/20 08/03/20 04:38 04:38 04:38 WBC 14.3 H RBC 2.42 L Hgb 7.0 L Hct 21.5 L MCHC RDW 18.1 H Lymph % (Auto) [place] % (Auto) Eos % (Auto) Lymph # [place] # Lymph # (Auto) [place] # (Auto) Eos # (Auto) Seg Neutrophils % Seg Neuts % (Manual) Lymphocytes % (Manual) Seg Neutrophils # Seg Neutrophils # Man Lymphocytes # (Manual) Monocytes % (Manual) Eosinophils % (Manual) Monocytes # (Manual) Eosinophils # (Manual) D-Dimer Heparin Anti-Xa Level ABG pH POC ABG pCO2 POC ABG pO2 ABG pO2 ABG HCO3 ABG O2 Saturation ABG Base Excess ABG Hemoglobin ABG Oxyhemoglobin VBG pH ABG Sodium ABG Potassium ABG Glucose Oxyhemoglobin Sodium 130 L Potassium Chloride 90.1 L Carbon Dioxide 20 L BUN 105 H Creatinine 3.1 H Glucose 115 H POC Glucose Lactic Acid 0.40 L Calcium 8.2 L Ferritin AST Alkaline Phosphatase Magnesium Lactate Dehydrogenase Total Creatine Kinase CK-MB (CK-2) C-Reactive Protein Total Protein Albumin Troponin T HDL Cholesterol Arterial Blood Glucose Urine WBC (Auto) Urine Creatinine Urine Total Protein Phenytoin Coronavirus (PCR) Crossmatch 08/03/20 08/03/20 08/03/20 05:33 12:04 17:51 WBC RBC Hgb Hct MCHC RDW Lymph % (Auto) [place] % (Auto) Eos % (Auto) Lymph # [place] # Lymph # (Auto) [place] # (Auto) Eos # (Auto) Seg Neutrophils % Seg Neuts % (Manual) Lymphocytes % (Manual) Seg Neutrophils # Seg Neutrophils # Man Lymphocytes # (Manual) Monocytes % (Manual) Eosinophils % (Manual) Monocytes # (Manual) Eosinophils # (Manual) D-Dimer Heparin Anti-Xa Level ABG pH POC ABG pCO2 POC ABG pO2 ABG pO2 ABG HCO3 ABG O2 Saturation ABG Base Excess ABG Hemoglobin ABG Oxyhemoglobin VBG pH ABG Sodium ABG Potassium ABG Glucose Oxyhemoglobin Sodium Potassium Chloride Carbon Dioxide BUN Creatinine Glucose POC Glucose 117 H 115 H 123 H Lactic Acid Calcium Ferritin AST Alkaline Phosphatase Magnesium Lactate Dehydrogenase Total Creatine Kinase CK-MB (CK-2) C-Reactive Protein Total Protein Albumin Troponin T HDL Cholesterol Arterial Blood Glucose Urine WBC (Auto) Urine Creatinine Urine Total Protein Phenytoin Coronavirus (PCR) Crossmatch 08/03/20 08/04/20 08/04/20 23:25 01:41 05:34 WBC RBC 2.20 L Hgb 6.5 L Hct 19.5 L* MCHC RDW 18.5 H Lymph % (Auto) 9.2 L [place] % (Auto) 9.8 H Eos % (Auto) Lymph # [place] # Lymph # (Auto) 0.8 L [place] # (Auto) Eos # (Auto) Seg Neutrophils % 77.7 H Seg Neuts % (Manual) Lymphocytes % (Manual) Seg Neutrophils # Seg Neutrophils # Man Lymphocytes # (Manual) Monocytes % (Manual) Eosinophils % (Manual) Monocytes # (Manual) Eosinophils # (Manual) D-Dimer Heparin Anti-Xa Level ABG pH POC ABG pCO2 POC ABG pO2 ABG pO2 ABG HCO3 ABG O2 Saturation ABG Base Excess ABG Hemoglobin ABG Oxyhemoglobin VBG pH ABG Sodium ABG Potassium ABG Glucose Oxyhemoglobin Sodium Potassium Chloride Carbon Dioxide BUN Creatinine Glucose POC Glucose 122 H 112 H Lactic Acid Calcium Ferritin AST Alkaline Phosphatase Magnesium Lactate Dehydrogenase Total Creatine Kinase CK-MB (CK-2) C-Reactive Protein Total Protein Albumin Troponin T HDL Cholesterol Arterial Blood Glucose Urine WBC (Auto) Urine Creatinine Urine Total Protein Phenytoin Coronavirus (PCR) Crossmatch 08/04/20 08/04/20 08/05/20 12:19 17:42 00:25 WBC RBC Hgb Hct MCHC RDW Lymph % (Auto) [place] % (Auto) Eos % (Auto) Lymph # [place] # Lymph # (Auto) [place] # (Auto) Eos # (Auto) Seg Neutrophils % Seg Neuts % (Manual) Lymphocytes % (Manual) Seg Neutrophils # Seg Neutrophils # Man Lymphocytes # (Manual) Monocytes % (Manual) Eosinophils % (Manual) Monocytes # (Manual) Eosinophils # (Manual) D-Dimer Heparin Anti-Xa Level ABG pH POC ABG pCO2 POC ABG pO2 ABG pO2 ABG HCO3 ABG O2 Saturation ABG Base Excess ABG Hemoglobin ABG Oxyhemoglobin VBG pH ABG Sodium ABG Potassium ABG Glucose Oxyhemoglobin Sodium Potassium Chloride Carbon Dioxide BUN Creatinine Glucose POC Glucose 108 H 113 H 119 H Lactic Acid Calcium Ferritin AST Alkaline Phosphatase Magnesium Lactate Dehydrogenase Total Creatine Kinase CK-MB (CK-2) C-Reactive Protein Total Protein Albumin Troponin T HDL Cholesterol Arterial Blood Glucose Urine WBC (Auto) Urine Creatinine Urine Total Protein Phenytoin Coronavirus (PCR) Crossmatch 08/05/20 08/05/20 08/05/20 05:24 05:35 05:35 WBC RBC 2.13 L Hgb 6.2 L Hct 18.9 L* MCHC RDW 18.7 H Lymph % (Auto) 10.0 L [place] % (Auto) 8.5 H Eos % (Auto) Lymph # [place] # Lymph # (Auto) 0.8 L [place] # (Auto) Eos # (Auto) Seg Neutrophils % 78.1 H Seg Neuts % (Manual) Lymphocytes % (Manual) Seg Neutrophils # Seg Neutrophils # Man Lymphocytes # (Manual) Monocytes % (Manual) Eosinophils % (Manual) Monocytes # (Manual) Eosinophils # (Manual) D-Dimer Heparin Anti-Xa Level ABG pH POC ABG pCO2 POC ABG pO2 ABG pO2 ABG HCO3 ABG O2 Saturation ABG Base Excess ABG Hemoglobin ABG Oxyhemoglobin VBG pH ABG Sodium ABG Potassium ABG Glucose Oxyhemoglobin Sodium 135 L Potassium Chloride 96.3 L Carbon Dioxide BUN 89 H Creatinine 2.8 H Glucose 116 H POC Glucose 138 H Lactic Acid Calcium 7.5 L Ferritin AST 53 H Alkaline Phosphatase 501 H Magnesium Lactate Dehydrogenase Total Creatine Kinase CK-MB (CK-2) C-Reactive Protein Total Protein 6.1 L Albumin 2.2 L Troponin T HDL Cholesterol Arterial Blood Glucose Urine WBC (Auto) Urine Creatinine Urine Total Protein Phenytoin Coronavirus (PCR) Crossmatch 08/05/20 08/05/20 08/05/20 09:15 12:17 18:00 WBC RBC Hgb Hct MCHC RDW Lymph % (Auto) [place] % (Auto) Eos % (Auto) Lymph # [place] # Lymph # (Auto) [place] # (Auto) Eos # (Auto) Seg Neutrophils % Seg Neuts % (Manual) Lymphocytes % (Manual) Seg Neutrophils # Seg Neutrophils # Man Lymphocytes # (Manual) Monocytes % (Manual) Eosinophils % (Manual) Monocytes # (Manual) Eosinophils # (Manual) D-Dimer Heparin Anti-Xa Level ABG pH POC ABG pCO2 POC ABG pO2 ABG pO2 ABG HCO3 ABG O2 Saturation ABG Base Excess ABG Hemoglobin ABG Oxyhemoglobin VBG pH ABG Sodium ABG Potassium ABG Glucose Oxyhemoglobin Sodium Potassium Chloride Carbon Dioxide BUN Creatinine Glucose POC Glucose 126 H 143 H Lactic Acid Calcium Ferritin AST Alkaline Phosphatase Magnesium Lactate Dehydrogenase Total Creatine Kinase CK-MB (CK-2) C-Reactive Protein Total Protein Albumin Troponin T HDL Cholesterol Arterial Blood Glucose Urine WBC (Auto) Urine Creatinine Urine Total Protein Phenytoin Coronavirus (PCR) Crossmatch See Detail 08/06/20 08/06/20 00:50 04:30 WBC RBC 2.43 L Hgb 7.2 L Hct 21.7 L MCHC RDW 18.1 H Lymph % (Auto) 9.9 L [place] % (Auto) 10.5 H Eos % (Auto) Lymph # [place] # Lymph # (Auto) 0.7 L [place] # (Auto) Eos # (Auto) Seg Neutrophils % 75.1 H Seg Neuts % (Manual) Lymphocytes % (Manual) Seg Neutrophils # Seg Neutrophils # Man Lymphocytes # (Manual) Monocytes % (Manual) Eosinophils % (Manual) Monocytes # (Manual) Eosinophils # (Manual) D-Dimer Heparin Anti-Xa Level ABG pH POC ABG pCO2 POC ABG pO2 ABG pO2 ABG HCO3 ABG O2 Saturation ABG Base Excess ABG Hemoglobin ABG Oxyhemoglobin VBG pH ABG Sodium ABG Potassium ABG Glucose Oxyhemoglobin Sodium Potassium Chloride Carbon Dioxide BUN Creatinine Glucose POC Glucose 117 H Lactic Acid Calcium Ferritin AST Alkaline Phosphatase Magnesium Lactate Dehydrogenase Total Creatine Kinase CK-MB (CK-2) C-Reactive Protein Total Protein Albumin Troponin T HDL Cholesterol Arterial Blood Glucose Urine WBC (Auto) Urine Creatinine Urine Total Protein Phenytoin Coronavirus (PCR) Crossmatch Allied health notes reviewed: RT
--- NOTE | 2020-08-06 17:00 | Progress Note ---
Assessment and Plan - Patient Problems (1) Acute kidney injury (AVANI) with acute tubular necrosis (ATN) Current Visit: Yes Status: Acute Plan to address problem: Improved volume status with HD. Will arrange another HD in AM for volume control/solute clearance, then monitor I/Os, volume status and renal parameters over the weekend off HD and on increased dose of diuretic therapy. Patient is a poor candidate for jail HD, given her overall poor prognosis. If no signs of renal recovery seen and volume status/azotemia worsens, will need to discuss further goals of care with family. (2) Pneumonia due to COVID-19 virus Current Visit: Yes Status: Acute Plan to address problem: Patient has completed course of Remdesevir. Completed course of steroids. (3) Acute hypoxemic respiratory failure Current Visit: Yes Status: Acute Plan to address problem: Being managed by pulmonary. S/p Extubation 06/12. Back on respirator. Continue management by pulmonary/critical care (4) Cardiac arrest Current Visit: Yes Status: Acute Plan to address problem: s/p ACLS with eventual ROSC (5) Cardiomyopathy Current Visit: No Status: Acute Qualifiers: Cardiomyopathy type: unspecified Qualified Code(s): I42.9 - Cardiomyopathy, unspecified Plan to address problem: Patient has peripheral edema. Has not responded to Bumex infusion. cont HD for volume control (6) Type 2 diabetes mellitus with diabetic chronic kidney disease Current Visit: Yes Status: Acute Plan to address problem: Blood sugar management by primary attending (7) Hyponatremia Current Visit: Yes Status: Acute Plan to address problem: likely hypervolemic nature, to correct volume status with HD Subjective Date of service: 08/06/20 Principal diagnosis: Ac hypoxemic resp failure; COVID-19; pneumonia; CHF; Pulm HTN; OHS; DM II Interval history: Pt remains on vent support. Objective - Exam Narrative Exam: I did not do physical exam at the bedside due to PPE conservation with the [place] COVID-19 pandemic. - Vital Signs Vital signs: Vital Signs - 12hr 08/06/20 08/06/20 08/06/20 05:00 05:16 05:30 Temperature Pulse Rate 63 61 62 Pulse Rate [ From Monitor] Respiratory 15 17 15 Rate Blood Pressure 125/39 116/39 118/38 O2 Sat by Pulse 97 97 97 Oximetry 08/06/20 08/06/2020 05:45 06:00 06:16 Temperature Pulse Rate 64 62 62 Pulse Rate [ From Monitor] Respiratory 17 16 17 Rate Blood Pressure 120/41 120/42 124/46 O2 Sat by Pulse 98 98 97 Oximetry 08/06/20 08/06/20 08/06/20 06:30 06:45 07:00 Temperature Pulse Rate 63 65 60 Pulse Rate [ From Monitor] Respiratory 17 12 15 Rate Blood Pressure 129/46 116/44 125/42 O2 Sat by Pulse 98 97 98 Oximetry 08/06/20 08/06/20 08/06/20 07:16 07:25 07:30 Temperature Pulse Rate 62 66 64 Pulse Rate [ From Monitor] Respiratory 15 16 Rate Blood Pressure 122/40 123/43 O2 Sat by Pulse 98 96 97 Oximetry 08/06/20 08/06/20 08/06/20 07:46 08:00 08:15 Temperature 98.3 F Pulse Rate 62 62 62 Pulse Rate [ 62 From Monitor] Respiratory 14 16 15 Rate Blood Pressure 127/43 116/40 123/43 O2 Sat by Pulse 98 97 97 Oximetry 08/06/20 08/06/20 08/06/20 08:30 08:45 09:00 Temperature Pulse Rate 64 63 63 Pulse Rate [ From Monitor] Respiratory 16 16 15 Rate Blood Pressure 128/46 118/45 118/45 O2 Sat by Pulse 97 98 98 Oximetry 08/06/20 08/06/20 08/06/20 09:15 09:30 09:45 Temperature Pulse Rate 63 64 63 Pulse Rate [ From Monitor] Respiratory 17 16 18 Rate Blood Pressure 124/49 128/42 121/41 O2 Sat by Pulse 97 97 97 Oximetry 08/06/20 08/06/20 08/06/20 10:00 10:15 10:28 Temperature Pulse Rate 63 64 65 Pulse Rate [ From Monitor] Respiratory 15 15 Rate Blood Pressure 128/44 125/42 121/44 O2 Sat by Pulse 97 97 Oximetry 08/06/20 08/06/20 08/06/20 10:30 10:45 10:48 Temperature Pulse Rate 64 70 70 Pulse Rate [ From Monitor] Respiratory 17 13 Rate Blood Pressure 124/41 137/89 O2 Sat by Pulse 97 98 96 Oximetry 08/06/20 08/06/20 08/06/20 11:00 11:15 11:30 Temperature Pulse Rate 65 65 66 Pulse Rate [ From Monitor] Respiratory 17 19 17 Rate Blood Pressure 142/59 154/55 138/46 O2 Sat by Pulse 97 98 99 Oximetry 08/06/20 08/06/20 08/06/20 11:45 12:00 12:15 Temperature 98.4 F Pulse Rate 67 67 66 Pulse Rate [ 67 From Monitor] Respiratory 18 16 18 Rate Blood Pressure 142/41 140/51 133/60 O2 Sat by Pulse 99 98 98 Oximetry 08/06/20 08/06/20 08/06/20 12:30 12:45 13:00 Temperature Pulse Rate 67 85 67 Pulse Rate [ From Monitor] Respiratory 19 18 19 Rate Blood Pressure 135/56 141/60 136/46 O2 Sat by Pulse 99 97 98 Oximetry 08/06/20 08/06/20 08/06/20 13:15 13:30 13:45 Temperature Pulse Rate 66 67 67 Pulse Rate [ From Monitor] Respiratory 18 19 16 Rate Blood Pressure 137/56 132/47 130/48 O2 Sat by Pulse 98 98 99 Oximetry 08/06/20 08/06/20 08/06/20 14:00 14:15 14:30 Temperature Pulse Rate 68 67 68 Pulse Rate [ From Monitor] Respiratory 19 15 16 Rate Blood Pressure 137/51 135/46 130/46 O2 Sat by Pulse 98 98 98 Oximetry 08/06/20 08/06/20 08/06/20 14:43 14:45 15:00 Temperature Pulse Rate 68 67 Pulse Rate [ From Monitor] Respiratory 18 15 Rate Blood Pressure 140/51 138/55 O2 Sat by Pulse 95 98 97 Oximetry 08/06/20 08/06/20 08/06/20 15:15 15:30 15:45 Temperature Pulse Rate 69 69 70 Pulse Rate [ From Monitor] Respiratory 18 22 17 Rate Blood Pressure 140/54 131/53 140/49 O2 Sat by Pulse 98 96 98 Oximetry 08/06/20 08/06/20 16:00 16:15 Temperature 98.6 F Pulse Rate 69 89 Pulse Rate [ 70 From Monitor] Respiratory 13 12 Rate Blood Pressure 130/54 144/60 O2 Sat by Pulse 96 96 Oximetry - Lab 08/06/20 04:30 08/05/20 05:35 Most recent lab results ABG pH 7.344 pH Units (7.350-7.450) L 08/02/20 11:25 ABG pCO2 39.0 mm Hg 08/02/20 11:25 ABG pO2 101.1 mm Hg (80.0-90.0) H 08/02/20 11:25 ABG HCO3 20.8 mmol/L (20.0-26.0) 08/02/20 11:25 ABG O2 Saturation 97.5 % (95.0-99.0) 08/02/20 11:25 Calcium 7.5 mg/dL (8.4-10.2) L 08/05/20 05:35 Magnesium 2.70 mg/dL (1.7-2.3) H 07/28/20 04:30 Urine Creatinine 33.3 mg/dL (0.1-20.0) H 07/06/20 13:20 Urine Sodium 21 mmol/L 07/06/20 13:20 Urine Total Protein 196 mg/dL (5-11.8) H 06/06/20 04:00 Medications & Allergies - Medications Allergies/Adverse Reactions: Allergies No Known Allergies Allergy (Verified 01/21/20 12:28) Home Medications: Home Medications Medication Instructions Recorded Confirmed Last Taken Type AtorvaSTATin [Lipitor] 20 mg PO QHS 05/12/20 05/29/20 Unknown History lisinopriL [Zestril TAB] 40 mg PO QDAY 05/12/20 05/29/20 Unknown History metFORMIN [Glucophage] 850 mg PO BID 05/12/20 05/29/20 Unknown History Acetaminophen [Acetaminophen TAB] 650 mg PO Q4H PRN tablet 05/13/20 05/29/20 Unknown Rx Dicyclomine [Bentyl] 20 mg PO BID #20 tablet 05/13/20 05/29/20 Unknown Rx Famotidine [Pepcid] 20 mg PO BID #30 tablet 05/13/20 05/29/20 Unknown Rx carvediloL [Coreg] 6.25 mg PO BID #60 05/13/20 05/29/20 Unknown Rx Active Medications: Generic Name Dose Route Start Last Admin Trade Name Freq PRN Reason Stop Dose Admin Acetaminophen 650 mg 06/09/20 10:57 06/29/20 21:18 Tylenol FEEDTUBE 650 mg Q6H PRN Administration Fever >101 Amlodipine Besylate 10 mg 06/02/20 11:00 08/06/20 10:28 Amlodipine PO Not Given DAILY NELSON Lipase/Protease/Amylase 1 each 05/29/20 13:39 07/07/20 10:[address] 10,500 Unit FEEDTUBE 1 each PRN PRN Administration For Clogged Feeding Tube Epoetin Javon 10,000 unit 07/29/20 11:29 08/05/20 11:04 Procrit IV 10,000 unit SCOTTY PRN Administration hemodialysis Glycopyrrolate 2 mg 06/09/20 14:00 08/06/20 14:03 Glycopyrrolate PO 2 mg TID NELSON Administration Heparin Sodium (Porcine) 5,000 unit 06/30/20 14:00 08/06/20 14:03 Heparin SUB-Q 5,000 unit Q8HR NELSON Administration Heparin Sodium (Porcine) 5,000 unit 07/29/20 11:29 08/02/20 23:15 Heparin IV 5,000 unit SCOTTY PRN Administration hemodialysis Hydralazine HCl 100 mg 07/14/20 14:00 08/06/20 14:28 Apresoline PO Not Given TID NELSON Hydrophilic Ointment 1 applic 05/28/20 13:49 Vaseline Lip Therapy TP Q2HR PRN Dry Lips Norepinephrine 4 mg in 250 mls @ 7.5 mls/hr 07/23/20 20:00 08/05/20 05:21 Levophed Drip 4 Mg/Ns 250 Ml IV 0 mcg/min TITR NELSON 0 mls/hr Titration Protocol 2 MCG/MIN Dopamine HCl/Dextrose 800 mg in 250 mls @ 4.613 mls/hr 07/24/20 11:30 08/03/20 21:25 Intropin Drip 800 Mg/D5w 250 Ml IV 0 mcg/kg/min TITR NELSON 0 mls/hr Titration Protocol 2 MCG/KG/MIN Levetiracetam 1,000 mg/ 110 mls @ 400 mls/hr 08/03/20 10:00 08/06/20 10:25 Dextrose IV 400 mls/hr Q12HR NELSON Administration Phenytoin 150 mg/ Sodium 103 mls @ 408 mls/hr 08/03/20 09:00 08/06/20 14:03 Chloride IV 408 mls/hr Q8HR NELSON Administration Dextrose/Sodium Chloride 1,000 mls @ 50 mls/hr 08/04/20 18:00 08/06/20 04:40 D5/0.45ns IV 50 mls/hr DIRECT NELSON Administration Sodium Chloride 100 mls @ 999 mls/hr 08/04/20 22:27 Nacl 0.9% IV SCOTTY PRN Hypotension Insulin Glargine 10 units 06/08/20 22:00 08/05/20 21:21 Lantus SUB-Q 10 units QHS NELSON Administration Insulin Human Lispro 0 unit 05/29/20 18:00 08/06/20 14:11 Humalog SUB-Q Not Given Q6H PENDING SALE TO [facility] Protocol Labetalol HCl 20 mg 06/03/20 09:00 07/31/20 12:14 Labetalol IV 20 mg Q4H PRN Administration HYPERTENSION Minoxidil 5 mg 07/21/20 10:00 08/06/20 10:29 Loniten PO Not Given BID PENDING SALE TO [facility] Multi-Ingred Cream/Lotion/Oil/Oint 1 applic 05/28/20 13:49 Artificial Tears Ophth Oint OU Q4HR PRN Dry Eye(s) Ondansetron HCl 4 mg 06/02/20 09:00 06/09/20 16:48 Zofran IV 4 mg Q8H PRN Administration Nausea And Vomiting Pantoprazole Sodium 40 mg 08/03/20 10:00 08/06/20 10:40 Protonix IV 40 mg QDAY NELSON Administration Senna 17.6 mg 06/03/20 10:00 08/06/20 10:30 Senokot FEEDTUBE Not Given BID NELSON Simple Syrup 15 ml 05/29/20 13:39 Simple Syrup FEEDTUBE PRN PRN Hypoglycemia Simple Syrup 30 ml 05/29/20 13:39 Simple Syrup FEEDTUBE PRN PRN Hypoglycemia Sodium Bicarbonate 325 mg 05/29/20 13:39 07/07/20 10:36 Sodium Bicarbonate FEEDTUBE 325 mg PRN PRN Administration For Clogged Feeding Tube Sodium Chloride 10 ml 05/28/20 22:00 08/06/20 10:40 Sodium Chloride Flush Syringe 10 Ml IV 10 ml BID NELSON Administration Sodium Chloride 10 ml 05/28/20 19:08 06/16/20 17:50 Sodium Chloride Flush Syringe 10 Ml IV 10 ml PRN PRN Administration LINE FLUSH
[2020-08-06] MEDS: INSULIN GLARGINE 100 UNITS/ML SUB-Q SCH (22:46)
[2020-08-07] MEDS: D5W/0.45% NACL 1,000 ML IV SCH ×2 (03:00→22:03)
[2020-08-07 05:25] LABS: Basophils % (Auto) 0.4 % (0.0-1.8); Eosinophils # (Auto) 0.3 K/mm3 (0.0-0.4); Eosinophils % (Auto) 3.2 % (0.0-4.3); Hematocrit 22.1 % (30.3-42.9); Hemoglobin 7.4 gm/dl (10.1-14.3); Lymphocytes # (Auto) 0.9 K/mm3 (1.2-5.4); Lymphocytes % (Auto) 11.7 % (13.4-35.0); Mean Corpuscular HGB Conc 33 % (30-34); Mean Corpuscular Volume 89 fl (79-97); Monocytes # (Auto) 0.7 K/mm3 (0.0-0.8); Monocytes % (Auto) 8.6 % (0.0-7.3); Platelet Count 354 K/mm3 (140-440); Red Blood Count 2.48 M/mm3 (3.65-5.03); Red Cell Distribution Width 18.1 % (13.2-15.2)
[2020-08-07] MEDS: PHENYTOIN IV SCH ×3 (06:02→21:16)
[2020-08-07] MEDS: SODIUM CHLORIDE 0.9% IV SCH ×3 (06:02→21:16)
[2020-08-07] MEDS: HEPARIN 5,000 UNIT/1 ML VIAL SUB-Q SCH ×3 (06:05→21:10)
[2020-08-07] MEDS: INSULIN LISPRO 100 UNIT/ML VIAL 3 mL SUB-Q SCH ×4 (06:06→18:21)
[2020-08-07] MEDS: GLYCOPYRROLATE 2 MG TAB PO SCH ×3 (08:49→21:09)
[2020-08-07] MEDS: hydrALAZINE 100 MG TAB PO SCH ×3 (08:50→21:09)
[2020-08-07] MEDS: SENNOSIDES ORAL LIQD 8.8 MG/5 ML ORAL LIQD FEEDTUBE SCH ×2 (09:49→21:49)
[2020-08-07] MEDS: levETIRAcetam 1,000 MG in DEXTROSE 5% IN WATER 100 ML IV SCH ×2 (09:50→22:04)
[2020-08-07] MEDS: PANTOPRAZOLE 40 MG INJ IV SCH (09:50)
[2020-08-07] MEDS: amLODIPine 10 MG TAB PO SCH (10:40)
[2020-08-07] MEDS: MINOXIDIL 2.5 MG TAB PO SCH ×2 (10:41→21:09)
[2020-08-07] MEDS: EPOETIN ALFA 10,000 UNIT/1 ML INJ IV PRN (13:18)
--- NOTE | 2020-08-07 13:18 | Progress Note ---
Assessment and Plan Acute hypoxemic respiratory failure on MVS Coronavirus-19 infection. Bilateral pulmonary infiltrates, bilateral pneumonia plus likely element of Pulmonary edema. Bilateral pulmonary edema. Bilateral pleural effusions. History of congestive heart failure. Morbid obesity. History of pulmonary hypertension. History of hypertension. Diabetes. Obesity hypoventilation syndrome. Elevated serum inflammatory markers to include D-dimers and LDH levels. Hyperkalemia at presentation. Metabolic acidosis. Oropharyngeal dysphagia. (AMS remains rate limiting factor to safe extubation; she will need a tracheo stomy) - HD/UF per nephrology prescription for toxin and volume clearance - prn vasopressors for target MAP > 65 mmHg - continue care as below otherwise; - prn CXR's and ABG's at this point - repeat EEG next per neurology rec's - AED's per neurology (Keppra & Dilantin changed to IV dosing) - surgery evaluation ongoing for trach +/- PEG (await negative COVID PCR result) - continue Modafinil re: lethargy / somnolence - continue daytime PSV trials as tolerated - Daily SAT and SBT assessment as tolerated - continue to wean supplemental oxygen for target O2 sat's > 92% acutely - VAP bundle addressed - continue lung protective strategies - continue bronchodilators with pulmonary hygiene per RT - wean per pulmonary driven protocols otherwise - continue accuchecks resumed with glycemic control per SSI (While critically ill target blood glucose of 140-180 mg/dL; avoid hypoglycemia) - sedation prn for target RASS 0 to -1 - continue to avoid benzodiazepine's, reduce the possibility of delirium - AB's per ID rec's (following clinically of AB's at this time) - continue enteral nutrition at goal rate as tolerated - AED's per neurology - prn analgesia per CPOT score - Maintenance of sleep-wake cycle, avoid delirium - continue enteral nutritional support at goal rate as tolerated - G.I. & VTE prophylaxis with heparin & famotidine - PT/OT/ROM exercises - continue mobility protocols for pressure ulcer prophylaxis - Monitor hemodynamics closely - continue other care per attending / other consultants - discharge planning ongoing concurrently (LTAC evaluation is appropriate) .... Re-evaluate in am & prn; will continue aggressive care until clear family wants to decelerate CONDITION: CRITICAL PROGNOSIS: GUARDED CODE STATUS: FULL CODE The high probability of a clinically significant, sudden or life-threatening deterioration of the [respiratory, cardiovascular, GI & neurologic] system(s) required my full and direct attention, intervention and personal management. The aggregate critical care time was [32] minutes without overlap. Time includes spent on; [x] Data Review and interpretation [x] Patient assessment and monitoring of vital signs [x] Documentation [x] Medication orders and management Subjective Date of service: 08/07/20 Principal diagnosis: Ac hypoxemic resp failure; COVID-19; pneumonia; CHF; Pulm HTN; OHS; DM II Interval history: Patient is seen today for: Ac hypoxemic resp failure; Coronavirus-19 infection; pneumonia; Pulmonary edema; Bilateral pleural effusions; CHF; Morbid obesity; pulmonary hypertension; OHS; DM II Seen and examined at bedside; 24hour events reviewed; nursing and respiratory care staff consulted; no adverse overnight events reported to me; resting peacefully in bed; remains on MVS; AMS is persistent; tolerating HD/UF sessions well so far; no emesis or overt aspiration; secretions persistent; no high grade fevers Objective Vital Signs - 12hr 08/07/20 08/07/20 08/07/20 01:30 01:45 02:00 Temperature Pulse Rate 68 68 67 Pulse Rate [ 67 From Monitor] Respiratory 15 16 17 Rate Blood Pressure 136/49 134/54 141/51 O2 Sat by Pulse 98 98 98 Oximetry O2 Sat by Pulse Oximetry [ Anterior Bilateral Throughout] 08/07/20 08/07/20 08/07/20 02:15 02:30 02:45 Temperature Pulse Rate 70 68 67 Pulse Rate [ From Monitor] Respiratory 15 17 17 Rate Blood Pressure 138/56 134/52 142/50 O2 Sat by Pulse 98 98 98 Oximetry O2 Sat by Pulse Oximetry [ Anterior Bilateral Throughout] 08/07/20 08/07/20 08/07/20 03:00 03:16 03:30 Temperature Pulse Rate 68 70 91 H Pulse Rate [ From Monitor] Respiratory 14 18 14 Rate Blood Pressure 139/58 148/55 155/84 O2 Sat by Pulse 98 97 94 Oximetry O2 Sat by Pulse Oximetry [ Anterior Bilateral Throughout] 08/07/20 08/07/20 08/07/20 03:41 03:46 04:00 Temperature 99.9 F H Pulse Rate 68 68 Pulse Rate [ 69 From Monitor] Respiratory 14 15 Rate Blood Pressure 136/42 139/44 O2 Sat by Pulse 97 97 Oximetry O2 Sat by Pulse Oximetry [ Anterior Bilateral Throughout] 08/07/20 08/07/20 08/07/20 04:15 04:26 04:30 Temperature Pulse Rate 68 68 68 Pulse Rate [ From Monitor] Respiratory 21 20 Rate Blood Pressure 146/53 146/53 149/51 O2 Sat by Pulse 96 98 98 Oximetry O2 Sat by Pulse Oximetry [ Anterior Bilateral Throughout] 08/07/20 08/07/20 08/07/20 04:45 05:00 05:15 Temperature Pulse Rate 67 67 70 Pulse Rate [ From Monitor] Respiratory 20 15 18 Rate Blood Pressure 142/49 144/49 136/59 O2 Sat by Pulse 98 97 96 Oximetry O2 Sat by Pulse Oximetry [ Anterior Bilateral Throughout] 08/07/20 08/07/20 08/07/20 05:30 05:45 06:00 Temperature Pulse Rate 67 67 66 Pulse Rate [ 68 From Monitor] Respiratory 13 16 23 Rate Blood Pressure 141/52 146/48 146/48 O2 Sat by Pulse 97 98 98 Oximetry O2 Sat by Pulse Oximetry [ Anterior Bilateral Throughout] 08/07/20 08/07/20 08/07/20 06:16 06:30 06:45 Temperature Pulse Rate 69 67 67 Pulse Rate [ From Monitor] Respiratory 17 15 14 Rate Blood Pressure 155/52 136/48 139/52 O2 Sat by Pulse 97 97 98 Oximetry O2 Sat by Pulse Oximetry [ Anterior Bilateral Throughout] 08/07/20 08/07/20 08/07/20 07:00 07:15 07:30 Temperature Pulse Rate 66 65 68 Pulse Rate [ From Monitor] Respiratory 16 16 17 Rate Blood Pressure 140/50 141/51 148/54 O2 Sat by Pulse 97 98 98 Oximetry O2 Sat by Pulse Oximetry [ Anterior Bilateral Throughout] 08/07/20 08/07/20 08/07/20 07:45 08:00 08:16 Temperature 98.1 F Pulse Rate 70 76 69 Pulse Rate [ 69 From Monitor] Respiratory 17 14 13 Rate Blood Pressure 158/57 168/63 160/53 O2 Sat by Pulse 98 97 97 Oximetry O2 Sat by Pulse Oximetry [ Anterior Bilateral Throughout] 08/07/20 08/07/20 08/07/20 08:30 08:34 08:45 Temperature Pulse Rate 67 66 67 Pulse Rate [ From Monitor] Respiratory 15 14 Rate Blood Pressure 140/48 140/48 152/56 O2 Sat by Pulse 98 98 99 Oximetry O2 Sat by Pulse Oximetry [ Anterior Bilateral Throughout] 08/07/20 08/07/20 08/07/20 09:00 09:15 09:30 Temperature Pulse Rate 67 65 66 Pulse Rate [ From Monitor] Respiratory 14 13 16 Rate Blood Pressure 154/55 154/53 155/59 O2 Sat by Pulse 98 98 97 Oximetry O2 Sat by Pulse Oximetry [ Anterior Bilateral Throughout] 08/07/20 08/07/20 08/07/20 09:45 10:00 10:15 Temperature Pulse Rate 66 67 68 Pulse Rate [ 69 From Monitor] Respiratory 15 12 17 Rate Blood Pressure 160/53 145/52 142/48 O2 Sat by Pulse 97 96 97 Oximetry O2 Sat by Pulse Oximetry [ Anterior Bilateral Throughout] 08/07/20 08/07/20 08/07/20 10:30 10:40 10:45 Temperature Pulse Rate 70 65 71 Pulse Rate [ From Monitor] Respiratory 16 20 Rate Blood Pressure 146/49 142/58 156/51 O2 Sat by Pulse 97 97 Oximetry O2 Sat by Pulse Oximetry [ Anterior Bilateral Throughout] 08/07/20 08/07/20 08/07/20 11:00 11:15 11:30 Temperature Pulse Rate 71 73 73 Pulse Rate [ From Monitor] Respiratory 17 18 21 Rate Blood Pressure 160/55 170/50 174/53 O2 Sat by Pulse 98 97 96 Oximetry O2 Sat by Pulse Oximetry [ Anterior Bilateral Throughout] 08/07/20 08/07/20 08/07/20 11:45 12:00 12:04 Temperature 99.1 F Pulse Rate 73 73 74 Pulse Rate [ 75 From Monitor] Respiratory 14 16 Rate Blood Pressure 157/58 159/55 159/55 O2 Sat by Pulse 97 97 98 Oximetry O2 Sat by Pulse Oximetry [ Anterior Bilateral Throughout] 08/07/20 08/07/20 08/07/20 12:15 12:25 12:30 Temperature 98.5 F Pulse Rate 73 73 72 Pulse Rate [ From Monitor] Respiratory 14 Rate Blood Pressure 160/54 159/50 172/54 O2 Sat by Pulse 97 Oximetry O2 Sat by Pulse 98 Oximetry [ Anterior Bilateral Throughout] 08/07/20 08/07/20 08/07/20 12:31 12:46 13:00 Temperature Pulse Rate 72 72 73 Pulse Rate [ From Monitor] Respiratory 16 Rate Blood Pressure 159/50 156/52 156/54 O2 Sat by Pulse 98 Oximetry O2 Sat by Pulse Oximetry [ Anterior Bilateral Throughout] 08/07/20 13:16 Temperature Pulse Rate 77 Pulse Rate [ From Monitor] Respiratory Rate Blood Pressure 145/52 O2 Sat by Pulse Oximetry O2 Sat by Pulse Oximetry [ Anterior Bilateral Throughout] Constitutional: appears uncomfortable, other (elderly looking female with mildly increased resp effort at rest) Eyes: non-icteric ENT: oropharynx dry, other (ETT 23-24 cm AYAN) Neck: supple, no lymphadenopathy, no JVD Effort: mildly labored Ascultation: Bilateral: diminished breath sounds, rales Percussion: Bilateral: not dull Cardiovascular: regular rate and rhythm, other (S1,S2) Gastrointestinal: normoactive bowel sounds, soft, non-tender, non-distended Integumentary: rash, other (Right femoral trialysis catheter) Extremities: no cyanosis, pink and warm, pulses normal, no ischemia or petechiae, edema (pedal and peripheral ), anasarca Neurologic: unable to assess, other (lethargic to obtunded) Psychiatric: other (unable to assess re: AMS) CBC and BMP: 08/08/20 15:00 08/09/20 05:05 ABG, PT/INR, D-dimer: ABG ABG pH 7.344 pH Units (7.350-7.450) L 08/02/20 11:25 POC ABG pCO2 44.1 mmHg (32.0-48.0) 07/18/20 04:24 ABG pCO2 39.0 mm Hg 08/02/20 11:25 POC ABG pO2 86.8 mmHg (83-108) 07/18/20 04:24 ABG pO2 101.1 mm Hg (80.0-90.0) H 08/02/20 11:25 POC ABG HCO3 25.6 07/18/20 04:24 ABG O2 Saturation 97.5 % (95.0-99.0) 08/02/20 11:25 PT/INR, D-dimer PT 14.2 Sec. (12.2-14.9) 05/29/20 15:10 INR 1.08 (0.87-1.13) 05/29/20 15:10 D-Dimer 2310.15 ng/mlDDU (0-234) H 06/29/20 14:45 Abnormal lab findings: Abnormal Labs 05/28/20 05/28/20 05/28/20 13:29 13:47 13:47 WBC RBC Hgb Hct MCHC RDW 15.3 H Lymph % (Auto) [place] % (Auto) Eos % (Auto) Lymph # [place] # Lymph # (Auto) [place] # (Auto) Eos # (Auto) Seg Neutrophils % Seg Neuts % (Manual) Lymphocytes % (Manual) Seg Neutrophils # Seg Neutrophils # Man Lymphocytes # (Manual) Monocytes % (Manual) Eosinophils % (Manual) Monocytes # (Manual) Eosinophils # (Manual) D-Dimer Heparin Anti-Xa Level ABG pH POC ABG pCO2 POC ABG pO2 ABG pO2 ABG HCO3 ABG O2 Saturation ABG Base Excess ABG Hemoglobin ABG Oxyhemoglobin VBG pH ABG Sodium ABG Potassium ABG Glucose Oxyhemoglobin Sodium Potassium 6.6 H* Chloride 109.2 H Carbon Dioxide 17 L BUN 29 H Creatinine 1.3 H Glucose 265 H POC Glucose 248 H Lactic Acid Calcium 8.1 L Ferritin AST 63 H Alkaline Phosphatase Magnesium Lactate Dehydrogenase Total Creatine Kinase 301 H CK-MB (CK-2) 4.3 H C-Reactive Protein Total Protein 5.4 L Albumin 2.6 L Troponin T HDL Cholesterol Arterial Blood Glucose Urine WBC (Auto) Urine Creatinine Urine Total Protein Phenytoin Coronavirus (PCR) Crossmatch 05/28/20 05/28/20 05/28/20 13:47 13:47 14:46 WBC RBC Hgb Hct MCHC RDW Lymph % (Auto) [place] % (Auto) Eos % (Auto) Lymph # [place] # Lymph # (Auto) [place] # (Auto) Eos # (Auto) Seg Neutrophils % Seg Neuts % (Manual) Lymphocytes % (Manual) Seg Neutrophils # Seg Neutrophils # Man Lymphocytes # (Manual) Monocytes % (Manual) Eosinophils % (Manual) Monocytes # (Manual) Eosinophils # (Manual) D-Dimer Heparin Anti-Xa Level ABG pH POC ABG pCO2 POC ABG pO2 ABG pO2 ABG HCO3 ABG O2 Saturation ABG Base Excess ABG Hemoglobin ABG Oxyhemoglobin VBG pH 7.152 L* ABG Sodium ABG Potassium ABG Glucose Oxyhemoglobin Sodium Potassium 7.2 H* Chloride Carbon Dioxide BUN Creatinine Glucose POC Glucose Lactic Acid 3.40 H* Calcium Ferritin AST Alkaline Phosphatase Magnesium Lactate Dehydrogenase Total Creatine Kinase CK-MB (CK-2) C-Reactive Protein Total Protein Albumin Troponin T HDL Cholesterol Arterial Blood Glucose Urine WBC (Auto) Urine Creatinine Urine Total Protein Phenytoin Coronavirus (PCR) Crossmatch 05/28/20 05/28/20 05/28/20 15:33 15:33 15:51 WBC RBC Hgb Hct MCHC RDW Lymph % (Auto) [place] % (Auto) Eos % (Auto) Lymph # [place] # Lymph # (Auto) [place] # (Auto) Eos # (Auto) Seg Neutrophils % Seg Neuts % (Manual) Lymphocytes % (Manual) Seg Neutrophils # Seg Neutrophils # Man Lymphocytes # (Manual) Monocytes % (Manual) Eosinophils % (Manual) Monocytes # (Manual) Eosinophils # (Manual) D-Dimer 8780.43 H Heparin Anti-Xa Level ABG pH 7.284 L POC ABG pCO2 POC ABG pO2 ABG pO2 273.0 H ABG HCO3 ABG O2 Saturation 99.4 H ABG Base Excess -6.1 L ABG Hemoglobin 17.2 H ABG Oxyhemoglobin VBG pH ABG Sodium ABG Potassium ABG Glucose Oxyhemoglobin Sodium Potassium Chloride Carbon Dioxide BUN Creatinine Glucose 152 H POC Glucose Lactic Acid Calcium Ferritin AST Alkaline Phosphatase Magnesium Lactate Dehydrogenase 365 H Total Creatine Kinase CK-MB (CK-2) C-Reactive Protein Total Protein Albumin Troponin T HDL Cholesterol Arterial Blood Glucose Urine WBC (Auto) Urine Creatinine Urine Total Protein Phenytoin Coronavirus (PCR) Crossmatch 05/28/20 05/28/20 05/28/20 16:30 20:41 23:20 WBC RBC Hgb Hct MCHC RDW Lymph % (Auto) [place] % (Auto) Eos % (Auto) Lymph # [place] # Lymph # (Auto) [place] # (Auto) Eos # (Auto) Seg Neutrophils % Seg Neuts % (Manual) Lymphocytes % (Manual) Seg Neutrophils # Seg Neutrophils # Man Lymphocytes # (Manual) Monocytes % (Manual) Eosinophils % (Manual) Monocytes # (Manual) Eosinophils # (Manual) D-Dimer Heparin Anti-Xa Level ABG pH POC ABG pCO2 POC ABG pO2 ABG pO2 ABG HCO3 ABG O2 Saturation ABG Base Excess ABG Hemoglobin ABG Oxyhemoglobin VBG pH ABG Sodium ABG Potassium ABG Glucose Oxyhemoglobin Sodium Potassium Chloride Carbon Dioxide BUN Creatinine Glucose POC Glucose 225 H 224 H Lactic Acid Calcium Ferritin AST Alkaline Phosphatase Magnesium Lactate Dehydrogenase Total Creatine Kinase CK-MB (CK-2) C-Reactive Protein Total Protein Albumin Troponin T HDL Cholesterol Arterial Blood Glucose Urine WBC (Auto) 17.0 H Urine Creatinine Urine Total Protein Phenytoin Coronavirus (PCR) Crossmatch 05/28/20 05/29/20 05/29/20 Unknown 04:35 04:43 WBC RBC 3.48 L Hgb 9.8 L Hct 29.4 L MCHC RDW 16.0 H Lymph % (Auto) 7.4 L [place] % (Auto) Eos % (Auto) Lymph # 0.7 L [place] # Lymph # (Auto) [place] # (Auto) Eos # (Auto) Seg Neutrophils % 89.1 H Seg Neuts % (Manual) Lymphocytes % (Manual) Seg Neutrophils # 8.1 H Seg Neutrophils # Man Lymphocytes # (Manual) Monocytes % (Manual) Eosinophils % (Manual) Monocytes # (Manual) Eosinophils # (Manual) D-Dimer Heparin Anti-Xa Level ABG pH POC ABG pCO2 POC ABG pO2 ABG pO2 ABG HCO3 19.3 L ABG O2 Saturation ABG Base Excess -4.5 L ABG Hemoglobin 9.7 L ABG Oxyhemoglobin VBG pH ABG Sodium ABG Potassium ABG Glucose Oxyhemoglobin Sodium Potassium Chloride Carbon Dioxide BUN Creatinine Glucose POC Glucose Lactic Acid Calcium Ferritin AST Alkaline Phosphatase Magnesium Lactate Dehydrogenase Total Creatine Kinase CK-MB (CK-2) C-Reactive Protein Total Protein Albumin Troponin T HDL Cholesterol Arterial Blood Glucose Urine WBC (Auto) Urine Creatinine Urine Total Protein Phenytoin Coronavirus (PCR) Positive A Crossmatch 05/29/20 05/29/20 05/29/20 04:43 15:10 17:17 WBC RBC Hgb 9.3 L Hct 28.7 L MCHC RDW Lymph % (Auto) [place] % (Auto) Eos % (Auto) Lymph # [place] # Lymph # (Auto) [place] # (Auto) Eos # (Auto) Seg Neutrophils % Seg Neuts % (Manual) Lymphocytes % (Manual) Seg Neutrophils # Seg Neutrophils # Man Lymphocytes # (Manual) Monocytes % (Manual) Eosinophils % (Manual) Monocytes # (Manual) Eosinophils # (Manual) D-Dimer Heparin Anti-Xa Level ABG pH POC ABG pCO2 POC ABG pO2 ABG pO2 ABG HCO3 ABG O2 Saturation ABG Base Excess ABG Hemoglobin ABG Oxyhemoglobin VBG pH ABG Sodium ABG Potassium ABG Glucose Oxyhemoglobin Sodium Potassium Chloride 110.2 H Carbon Dioxide 18 L BUN 32 H Creatinine 1.4 H Glucose 180 H POC Glucose 147 H Lactic Acid Calcium Ferritin AST Alkaline Phosphatase Magnesium Lactate Dehydrogenase Total Creatine Kinase CK-MB (CK-2) C-Reactive Protein Total Protein Albumin Troponin T HDL Cholesterol Arterial Blood Glucose Urine WBC (Auto) Urine Creatinine Urine Total Protein Phenytoin Coronavirus (PCR) Crossmatch 05/30/20 05/30/20 05/30/20 00:08 00:12 04:15 WBC RBC Hgb Hct MCHC RDW Lymph % (Auto) [place] % (Auto) Eos % (Auto) Lymph # [place] # Lymph # (Auto) [place] # (Auto) Eos # (Auto) Seg Neutrophils % Seg Neuts % (Manual) Lymphocytes % (Manual) Seg Neutrophils # Seg Neutrophils # Man Lymphocytes # (Manual) Monocytes % (Manual) Eosinophils % (Manual) Monocytes # (Manual) Eosinophils # (Manual) D-Dimer Heparin Anti-Xa Level 0.71 H ABG pH 7.460 H POC ABG pCO2 POC ABG pO2 ABG pO2 106.0 H ABG HCO3 18.9 L ABG O2 Saturation ABG Base Excess -4.4 L ABG Hemoglobin 6.8 L ABG Oxyhemoglobin VBG pH ABG Sodium ABG Potassium ABG Glucose Oxyhemoglobin Sodium Potassium Chloride Carbon Dioxide BUN Creatinine Glucose POC Glucose 195 H Lactic Acid Calcium Ferritin AST Alkaline Phosphatase Magnesium Lactate Dehydrogenase Total Creatine Kinase CK-MB (CK-2) C-Reactive Protein Total Protein Albumin Troponin T HDL Cholesterol Arterial Blood Glucose Urine WBC (Auto) Urine Creatinine Urine Total Protein Phenytoin Coronavirus (PCR) Crossmatch 05/30/20 05/30/20 05/30/20 06:07 08:37 12:33 WBC RBC Hgb Hct MCHC RDW Lymph % (Auto) [place] % (Auto) Eos % (Auto) Lymph # [place] # Lymph # (Auto) [place] # (Auto) Eos # (Auto) Seg Neutrophils % Seg Neuts % (Manual) Lymphocytes % (Manual) Seg Neutrophils # Seg Neutrophils # Man Lymphocytes # (Manual) Monocytes % (Manual) Eosinophils % (Manual) Monocytes # (Manual) Eosinophils # (Manual) D-Dimer Heparin Anti-Xa Level 0.85 H ABG pH POC ABG pCO2 POC ABG pO2 ABG pO2 ABG HCO3 ABG O2 Saturation ABG Base Excess ABG Hemoglobin ABG Oxyhemoglobin VBG pH ABG Sodium ABG Potassium ABG Glucose Oxyhemoglobin Sodium Potassium Chloride Carbon Dioxide BUN Creatinine Glucose POC Glucose 182 H 187 H Lactic Acid Calcium Ferritin AST Alkaline Phosphatase Magnesium Lactate Dehydrogenase Total Creatine Kinase CK-MB (CK-2) C-Reactive Protein Total Protein Albumin Troponin T HDL Cholesterol Arterial Blood Glucose Urine WBC (Auto) Urine Creatinine Urine Total Protein Phenytoin Coronavirus (PCR) Crossmatch 05/30/20 05/30/20 05/30/20 15:58 17:57 23:36 WBC RBC Hgb Hct MCHC RDW Lymph % (Auto) [place] % (Auto) Eos % (Auto) Lymph # [place] # Lymph # (Auto) [place] # (Auto) Eos # (Auto) Seg Neutrophils % Seg Neuts % (Manual) Lymphocytes % (Manual) Seg Neutrophils # Seg Neutrophils # Man Lymphocytes # (Manual) Monocytes % (Manual) Eosinophils % (Manual) Monocytes # (Manual) Eosinophils # (Manual) D-Dimer Heparin Anti-Xa Level 1.03 H ABG pH POC ABG pCO2 POC ABG pO2 ABG pO2 ABG HCO3 ABG O2 Saturation ABG Base Excess ABG Hemoglobin ABG Oxyhemoglobin VBG pH ABG Sodium ABG Potassium ABG Glucose Oxyhemoglobin Sodium Potassium Chloride Carbon Dioxide BUN Creatinine Glucose POC Glucose 208 H 185 H Lactic Acid Calcium Ferritin AST Alkaline Phosphatase Magnesium Lactate Dehydrogenase Total Creatine Kinase CK-MB (CK-2) C-Reactive Protein Total Protein Albumin Troponin T HDL Cholesterol Arterial Blood Glucose Urine WBC (Auto) Urine Creatinine Urine Total Protein Phenytoin Coronavirus (PCR) Crossmatch 05/31/20 05/31/20 05/31/20 02:16 03:55 06:16 WBC RBC Hgb 9.2 L Hct 27.5 L MCHC RDW Lymph % (Auto) [place] % (Auto) Eos % (Auto) Lymph # [place] # Lymph # (Auto) [place] # (Auto) Eos # (Auto) Seg Neutrophils % Seg Neuts % (Manual) Lymphocytes % (Manual) Seg Neutrophils # Seg Neutrophils # Man Lymphocytes # (Manual) Monocytes % (Manual) Eosinophils % (Manual) Monocytes # (Manual) Eosinophils # (Manual) D-Dimer Heparin Anti-Xa Level ABG pH POC ABG pCO2 POC ABG pO2 ABG pO2 94.7 H ABG HCO3 18.6 L ABG O2 Saturation ABG Base Excess -5.5 L ABG Hemoglobin 7.9 L ABG Oxyhemoglobin VBG pH ABG Sodium ABG Potassium ABG Glucose Oxyhemoglobin Sodium Potassium Chloride Carbon Dioxide BUN Creatinine Glucose POC Glucose 160 H Lactic Acid Calcium Ferritin AST Alkaline Phosphatase Magnesium Lactate Dehydrogenase Total Creatine Kinase CK-MB (CK-2) C-Reactive Protein Total Protein Albumin Troponin T HDL Cholesterol Arterial Blood Glucose Urine WBC (Auto) Urine Creatinine Urine Total Protein Phenytoin Coronavirus (PCR) Crossmatch 05/31/20 05/31/20 05/31/20 12:20 13:03 18:13 WBC RBC Hgb Hct MCHC RDW Lymph % (Auto) [place] % (Auto) Eos % (Auto) Lymph # [place] # Lymph # (Auto) [place] # (Auto) Eos # (Auto) Seg Neutrophils % Seg Neuts % (Manual) Lymphocytes % (Manual) Seg Neutrophils # Seg Neutrophils # Man Lymphocytes # (Manual) Monocytes % (Manual) Eosinophils % (Manual) Monocytes # (Manual) Eosinophils # (Manual) D-Dimer Heparin Anti-Xa Level ABG pH POC ABG pCO2 POC ABG pO2 ABG pO2 ABG HCO3 ABG O2 Saturation ABG Base Excess ABG Hemoglobin ABG Oxyhemoglobin VBG pH ABG Sodium ABG Potassium ABG Glucose Oxyhemoglobin Sodium Potassium Chloride Carbon Dioxide 18 L BUN 48 H Creatinine 1.6 H Glucose 115 H POC Glucose 128 H 159 H Lactic Acid Calcium 8.3 L Ferritin AST Alkaline Phosphatase Magnesium Lactate Dehydrogenase Total Creatine Kinase CK-MB (CK-2) C-Reactive Protein Total Protein 5.4 L Albumin 2.4 L Troponin T HDL Cholesterol Arterial Blood Glucose Urine WBC (Auto) Urine Creatinine Urine Total Protein Phenytoin Coronavirus (PCR) Crossmatch 05/31/20 06/01/20 06/01/20 23:51 04:00 05:48 WBC RBC Hgb Hct MCHC RDW Lymph % (Auto) [place] % (Auto) Eos % (Auto) Lymph # [place] # Lymph # (Auto) [place] # (Auto) Eos # (Auto) Seg Neutrophils % Seg Neuts % (Manual) Lymphocytes % (Manual) Seg Neutrophils # Seg Neutrophils # Man Lymphocytes # (Manual) Monocytes % (Manual) Eosinophils % (Manual) Monocytes # (Manual) Eosinophils # (Manual) D-Dimer Heparin Anti-Xa Level ABG pH POC ABG pCO2 POC ABG pO2 ABG pO2 109.8 H ABG HCO3 18.8 L ABG O2 Saturation ABG Base Excess -5.9 L ABG Hemoglobin 7.8 L ABG Oxyhemoglobin VBG pH ABG Sodium ABG Potassium ABG Glucose Oxyhemoglobin Sodium Potassium Chloride Carbon Dioxide BUN Creatinine Glucose POC Glucose 171 H 133 H Lactic Acid Calcium Ferritin AST Alkaline Phosphatase Magnesium Lactate Dehydrogenase Total Creatine Kinase CK-MB (CK-2) C-Reactive Protein Total Protein Albumin Troponin T HDL Cholesterol Arterial Blood Glucose Urine WBC (Auto) Urine Creatinine Urine Total Protein Phenytoin Coronavirus (PCR) Crossmatch 06/01/20 06/01/20 06/02/20 12:28 17:29 00:08 WBC RBC Hgb Hct MCHC RDW Lymph % (Auto) [place] % (Auto) Eos % (Auto) Lymph # [place] # Lymph # (Auto) [place] # (Auto) Eos # (Auto) Seg Neutrophils % Seg Neuts % (Manual) Lymphocytes % (Manual) Seg Neutrophils # Seg Neutrophils # Man Lymphocytes # (Manual) Monocytes % (Manual) Eosinophils % (Manual) Monocytes # (Manual) Eosinophils # (Manual) D-Dimer Heparin Anti-Xa Level ABG pH POC ABG pCO2 POC ABG pO2 ABG pO2 ABG HCO3 ABG O2 Saturation ABG Base Excess ABG Hemoglobin ABG Oxyhemoglobin VBG pH ABG Sodium ABG Potassium ABG Glucose Oxyhemoglobin Sodium Potassium Chloride Carbon Dioxide BUN Creatinine Glucose POC Glucose 199 H 209 H 162 H Lactic Acid Calcium Ferritin AST Alkaline Phosphatase Magnesium Lactate Dehydrogenase Total Creatine Kinase CK-MB (CK-2) C-Reactive Protein Total Protein Albumin Troponin T HDL Cholesterol Arterial Blood Glucose Urine WBC (Auto) Urine Creatinine Urine Total Protein Phenytoin Coronavirus (PCR) Crossmatch 06/02/20 06/02/20 06/02/20 04:20 04:20 04:44 WBC RBC Hgb 10.0 L Hct MCHC RDW Lymph % (Auto) [place] % (Auto) Eos % (Auto) Lymph # [place] # Lymph # (Auto) [place] # (Auto) Eos # (Auto) Seg Neutrophils % Seg Neuts % (Manual) Lymphocytes % (Manual) Seg Neutrophils # Seg Neutrophils # Man Lymphocytes # (Manual) Monocytes % (Manual) Eosinophils % (Manual) Monocytes # (Manual) Eosinophils # (Manual) D-Dimer Heparin Anti-Xa Level 0.10 L ABG pH POC ABG pCO2 POC ABG pO2 ABG pO2 150.6 H ABG HCO3 ABG O2 Saturation ABG Base Excess -4.1 L ABG Hemoglobin 11.8 L ABG Oxyhemoglobin VBG pH ABG Sodium ABG Potassium ABG Glucose Oxyhemoglobin Sodium Potassium Chloride Carbon Dioxide BUN Creatinine Glucose POC Glucose Lactic Acid Calcium Ferritin AST Alkaline Phosphatase Magnesium Lactate Dehydrogenase Total Creatine Kinase CK-MB (CK-2) C-Reactive Protein Total Protein Albumin Troponin T HDL Cholesterol Arterial Blood Glucose Urine WBC (Auto) Urine Creatinine Urine Total Protein Phenytoin Coronavirus (PCR) Crossmatch 06/02/20 06/02/20 06/02/20 05:53 12:04 13:49 WBC RBC Hgb Hct MCHC RDW Lymph % (Auto) [place] % (Auto) Eos % (Auto) Lymph # [place] # Lymph # (Auto) [place] # (Auto) Eos # (Auto) Seg Neutrophils % Seg Neuts % (Manual) Lymphocytes % (Manual) Seg Neutrophils # Seg Neutrophils # Man Lymphocytes # (Manual) Monocytes % (Manual) Eosinophils % (Manual) Monocytes # (Manual) Eosinophils # (Manual) D-Dimer Heparin Anti-Xa Level 0.28 L ABG pH POC ABG pCO2 POC ABG pO2 ABG pO2 ABG HCO3 ABG O2 Saturation ABG Base Excess ABG Hemoglobin ABG Oxyhemoglobin VBG pH ABG Sodium ABG Potassium ABG Glucose Oxyhemoglobin Sodium Potassium Chloride Carbon Dioxide BUN Creatinine Glucose POC Glucose 149 H 220 H Lactic Acid Calcium Ferritin AST Alkaline Phosphatase Magnesium Lactate Dehydrogenase Total Creatine Kinase CK-MB (CK-2) C-Reactive Protein Total Protein Albumin Troponin T HDL Cholesterol Arterial Blood Glucose Urine WBC (Auto) Urine Creatinine Urine Total Protein Phenytoin Coronavirus (PCR) Crossmatch 06/02/20 06/02/20 06/03/20 13:49 18:31 00:42 WBC RBC Hgb Hct MCHC RDW Lymph % (Auto) [place] % (Auto) Eos % (Auto) Lymph # [place] # Lymph # (Auto) [place] # (Auto) Eos # (Auto) Seg Neutrophils % Seg Neuts % (Manual) Lymphocytes % (Manual) Seg Neutrophils # Seg Neutrophils # Man Lymphocytes # (Manual) Monocytes % (Manual) Eosinophils % (Manual) Monocytes # (Manual) Eosinophils # (Manual) D-Dimer 769.68 H Heparin Anti-Xa Level ABG pH POC ABG pCO2 POC ABG pO2 ABG pO2 ABG HCO3 ABG O2 Saturation ABG Base Excess ABG Hemoglobin ABG Oxyhemoglobin VBG pH ABG Sodium ABG Potassium ABG Glucose Oxyhemoglobin Sodium Potassium Chloride Carbon Dioxide BUN Creatinine Glucose POC Glucose 225 H 212 H Lactic Acid Calcium Ferritin AST Alkaline Phosphatase Magnesium Lactate Dehydrogenase Total Creatine Kinase CK-MB (CK-2) C-Reactive Protein Total Protein Albumin Troponin T HDL Cholesterol Arterial Blood Glucose Urine WBC (Auto) Urine Creatinine Urine Total Protein Phenytoin Coronavirus (PCR) Crossmatch 06/03/20 06/03/20 06/03/20 05:16 05:16 05:25 WBC 11.4 H RBC Hgb Hct MCHC RDW 16.4 H Lymph % (Auto) [place] % (Auto) Eos % (Auto) Lymph # [place] # Lymph # (Auto) [place] # (Auto) Eos # (Auto) Seg Neutrophils % Seg Neuts % (Manual) Lymphocytes % (Manual) Seg Neutrophils # Seg Neutrophils # Man Lymphocytes # (Manual) Monocytes % (Manual) Eosinophils % (Manual) Monocytes # (Manual) Eosinophils # (Manual) D-Dimer Heparin Anti-Xa Level ABG pH POC ABG pCO2 POC ABG pO2 ABG pO2 160.9 H ABG HCO3 19.4 L ABG O2 Saturation ABG Base Excess -4.9 L ABG Hemoglobin 7.0 L ABG Oxyhemoglobin VBG pH ABG Sodium ABG Potassium ABG Glucose Oxyhemoglobin Sodium Potassium Chloride Carbon Dioxide 18 L BUN 65 H Creatinine 2.0 H Glucose 175 H POC Glucose Lactic Acid Calcium 8.0 L Ferritin AST Alkaline Phosphatase Magnesium Lactate Dehydrogenase Total Creatine Kinase CK-MB (CK-2) C-Reactive Protein Total Protein 5.5 L Albumin 2.2 L Troponin T HDL Cholesterol Arterial Blood Glucose Urine WBC (Auto) Urine Creatinine Urine Total Protein Phenytoin Coronavirus (PCR) Crossmatch 06/03/20 06/03/20 06/03/20 06:07 11:58 18:24 WBC RBC Hgb Hct MCHC RDW Lymph % (Auto) [place] % (Auto) Eos % (Auto) Lymph # [place] # Lymph # (Auto) [place] # (Auto) Eos # (Auto) Seg Neutrophils % Seg Neuts % (Manual) Lymphocytes % (Manual) Seg Neutrophils # Seg Neutrophils # Man Lymphocytes # (Manual) Monocytes % (Manual) Eosinophils % (Manual) Monocytes # (Manual) Eosinophils # (Manual) D-Dimer Heparin Anti-Xa Level ABG pH POC ABG pCO2 POC ABG pO2 ABG pO2 ABG HCO3 ABG O2 Saturation ABG Base Excess ABG Hemoglobin ABG Oxyhemoglobin VBG pH ABG Sodium ABG Potassium ABG Glucose Oxyhemoglobin Sodium Potassium Chloride Carbon Dioxide BUN Creatinine Glucose POC Glucose 177 H 163 H 211 H Lactic Acid Calcium Ferritin AST Alkaline Phosphatase Magnesium Lactate Dehydrogenase Total Creatine Kinase CK-MB (CK-2) C-Reactive Protein Total Protein Albumin Troponin T HDL Cholesterol Arterial Blood Glucose Urine WBC (Auto) Urine Creatinine Urine Total Protein Phenytoin Coronavirus (PCR) Crossmatch 06/03/20 06/03/20 06/04/20 21:50 Unknown 00:26 WBC RBC Hgb Hct MCHC RDW Lymph % (Auto) [place] % (Auto) Eos % (Auto) Lymph # [place] # Lymph # (Auto) [place] # (Auto) Eos # (Auto) Seg Neutrophils % Seg Neuts % (Manual) Lymphocytes % (Manual) Seg Neutrophils # Seg Neutrophils # Man Lymphocytes # (Manual) Monocytes % (Manual) Eosinophils % (Manual) Monocytes # (Manual) Eosinophils # (Manual) D-Dimer Heparin Anti-Xa Level ABG pH POC ABG pCO2 POC ABG pO2 ABG pO2 ABG HCO3 ABG O2 Saturation ABG Base Excess ABG Hemoglobin ABG Oxyhemoglobin VBG pH ABG Sodium ABG Potassium ABG Glucose Oxyhemoglobin Sodium 135 L Potassium Chloride Carbon Dioxide 18 L BUN Creatinine Glucose POC Glucose 241 H Lactic Acid Calcium Ferritin AST Alkaline Phosphatase Magnesium Lactate Dehydrogenase Total Creatine Kinase CK-MB (CK-2) C-Reactive Protein Total Protein Albumin Troponin T HDL Cholesterol Arterial Blood Glucose Urine WBC (Auto) 11.0 H Urine Creatinine Urine Total Protein Phenytoin Coronavirus (PCR) Crossmatch 06/04/20 06/04/20 06/04/20 03:35 04:19 04:19 WBC RBC 3.15 L Hgb 8.9 L Hct 26.8 L D MCHC RDW 15.9 H Lymph % (Auto) 6.0 L [place] % (Auto) Eos % (Auto) Lymph # 0.6 L [place] # Lymph # (Auto) [place] # (Auto) Eos # (Auto) Seg Neutrophils % 86.6 H Seg Neuts % (Manual) Lymphocytes % (Manual) Seg Neutrophils # 9.1 H Seg Neutrophils # Man Lymphocytes # (Manual) Monocytes % (Manual) Eosinophils % (Manual) Monocytes # (Manual) Eosinophils # (Manual) D-Dimer Heparin Anti-Xa Level ABG pH 7.331 L POC ABG pCO2 POC ABG pO2 ABG pO2 ABG HCO3 ABG O2 Saturation ABG Base Excess -4.7 L ABG Hemoglobin 11.0 L ABG Oxyhemoglobin VBG pH ABG Sodium ABG Potassium ABG Glucose Oxyhemoglobin 93.9 L Sodium 136 L Potassium Chloride Carbon Dioxide 20 L BUN 73 H Creatinine 2.0 H Glucose 192 H POC Glucose Lactic Acid Calcium 8.0 L Ferritin AST Alkaline Phosphatase Magnesium Lactate Dehydrogenase 271 H Total Creatine Kinase CK-MB (CK-2) C-Reactive Protein 2.20 H Total Protein 5.0 L Albumin 2.0 L Troponin T HDL Cholesterol Arterial Blood Glucose Urine WBC (Auto) Urine Creatinine Urine Total Protein Phenytoin Coronavirus (PCR) Crossmatch 06/04/20 06/04/20 06/04/20 04:19 05:51 11:48 WBC RBC Hgb Hct MCHC RDW Lymph % (Auto) [place] % (Auto) Eos % (Auto) Lymph # [place] # Lymph # (Auto) [place] # (Auto) Eos # (Auto) Seg Neutrophils % Seg Neuts % (Manual) Lymphocytes % (Manual) Seg Neutrophils # Seg Neutrophils # Man Lymphocytes # (Manual) Monocytes % (Manual) Eosinophils % (Manual) Monocytes # (Manual) Eosinophils # (Manual) D-Dimer 414.52 H Heparin Anti-Xa Level ABG pH POC ABG pCO2 POC ABG pO2 ABG pO2 ABG HCO3 ABG O2 Saturation ABG Base Excess ABG Hemoglobin ABG Oxyhemoglobin VBG pH ABG Sodium ABG Potassium ABG Glucose Oxyhemoglobin Sodium Potassium Chloride Carbon Dioxide BUN Creatinine Glucose POC Glucose 179 H 213 H Lactic Acid Calcium Ferritin AST Alkaline Phosphatase Magnesium Lactate Dehydrogenase Total Creatine Kinase CK-MB (CK-2) C-Reactive Protein Total Protein Albumin Troponin T HDL Cholesterol Arterial Blood Glucose Urine WBC (Auto) Urine Creatinine Urine Total Protein Phenytoin Coronavirus (PCR) Crossmatch 06/04/20 06/05/20 06/05/20 18:25 00:16 05:00 WBC RBC Hgb Hct MCHC RDW Lymph % (Auto) [place] % (Auto) Eos % (Auto) Lymph # [place] # Lymph # (Auto) [place] # (Auto) Eos # (Auto) Seg Neutrophils % Seg Neuts % (Manual) Lymphocytes % (Manual) Seg Neutrophils # Seg Neutrophils # Man Lymphocytes # (Manual) Monocytes % (Manual) Eosinophils % (Manual) Monocytes # (Manual) Eosinophils # (Manual) D-Dimer Heparin Anti-Xa Level ABG pH 7.286 L POC ABG pCO2 POC ABG pO2 ABG pO2 96.2 H ABG HCO3 ABG O2 Saturation ABG Base Excess -6.3 L ABG Hemoglobin 8.8 L ABG Oxyhemoglobin VBG pH ABG Sodium ABG Potassium ABG Glucose Oxyhemoglobin 94.8 L Sodium Potassium Chloride Carbon Dioxide BUN Creatinine Glucose POC Glucose 238 H 183 H Lactic Acid Calcium Ferritin AST Alkaline Phosphatase Magnesium Lactate Dehydrogenase Total Creatine Kinase CK-MB (CK-2) C-Reactive Protein Total Protein Albumin Troponin T HDL Cholesterol Arterial Blood Glucose Urine WBC (Auto) Urine Creatinine Urine Total Protein Phenytoin Coronavirus (PCR) Crossmatch 06/05/20 06/05/20 06/05/20 05:39 07:25 07:25 WBC RBC 2.97 L Hgb 8.7 L Hct 25.7 L MCHC RDW 16.0 H Lymph % (Auto) 8.8 L [place] % (Auto) 13.3 H Eos % (Auto) Lymph # 0.8 L [place] # 1.3 H Lymph # (Auto) [place] # (Auto) Eos # (Auto) Seg Neutrophils % 77.3 H Seg Neuts % (Manual) Lymphocytes % (Manual) Seg Neutrophils # Seg Neutrophils # Man Lymphocytes # (Manual) Monocytes % (Manual) Eosinophils % (Manual) Monocytes # (Manual) Eosinophils # (Manual) D-Dimer Heparin Anti-Xa Level ABG pH POC ABG pCO2 POC ABG pO2 ABG pO2 ABG HCO3 ABG O2 Saturation ABG Base Excess ABG Hemoglobin ABG Oxyhemoglobin VBG pH ABG Sodium ABG Potassium ABG Glucose Oxyhemoglobin Sodium 133 L Potassium Chloride Carbon Dioxide 17 L BUN 89 H Creatinine 2.8 H Glucose 176 H POC Glucose 149 H Lactic Acid Calcium 7.7 L Ferritin AST Alkaline Phosphatase Magnesium Lactate Dehydrogenase Total Creatine Kinase CK-MB (CK-2) C-Reactive Protein Total Protein 4.2 L Albumin 1.9 L Troponin T HDL Cholesterol Arterial Blood Glucose Urine WBC (Auto) Urine Creatinine Urine Total Protein Phenytoin Coronavirus (PCR) Crossmatch 06/05/20 06/05/20 06/05/20 07:25 12:05 15:41 WBC RBC Hgb Hct MCHC RDW Lymph % (Auto) [place] % (Auto) Eos % (Auto) Lymph # [place] # Lymph # (Auto) [place] # (Auto) Eos # (Auto) Seg Neutrophils % Seg Neuts % (Manual) Lymphocytes % (Manual) Seg Neutrophils # Seg Neutrophils # Man Lymphocytes # (Manual) Monocytes % (Manual) Eosinophils % (Manual) Monocytes # (Manual) Eosinophils # (Manual) D-Dimer Heparin Anti-Xa Level 0.76 H 0.81 H ABG pH POC ABG pCO2 POC ABG pO2 ABG pO2 ABG HCO3 ABG O2 Saturation ABG Base Excess ABG Hemoglobin ABG Oxyhemoglobin VBG pH ABG Sodium ABG Potassium ABG Glucose Oxyhemoglobin Sodium Potassium Chloride Carbon Dioxide BUN Creatinine Glucose POC Glucose 198 H Lactic Acid Calcium Ferritin AST Alkaline Phosphatase Magnesium Lactate Dehydrogenase Total Creatine Kinase CK-MB (CK-2) C-Reactive Protein Total Protein Albumin Troponin T HDL Cholesterol Arterial Blood Glucose Urine WBC (Auto) Urine Creatinine Urine Total Protein Phenytoin Coronavirus (PCR) Crossmatch 06/05/20 06/05/20 06/06/20 18:08 23:25 04:00 WBC RBC Hgb Hct MCHC RDW Lymph % (Auto) [place] % (Auto) Eos % (Auto) Lymph # [place] # Lymph # (Auto) [place] # (Auto) Eos # (Auto) Seg Neutrophils % Seg Neuts % (Manual) Lymphocytes % (Manual) Seg Neutrophils # Seg Neutrophils # Man Lymphocytes # (Manual) Monocytes % (Manual) Eosinophils % (Manual) Monocytes # (Manual) Eosinophils # (Manual) D-Dimer Heparin Anti-Xa Level ABG pH POC ABG pCO2 POC ABG pO2 ABG pO2 ABG HCO3 ABG O2 Saturation ABG Base Excess ABG Hemoglobin ABG Oxyhemoglobin VBG pH ABG Sodium ABG Potassium ABG Glucose Oxyhemoglobin Sodium Potassium Chloride Carbon Dioxide BUN Creatinine Glucose POC Glucose 223 H 169 H Lactic Acid Calcium Ferritin AST Alkaline Phosphatase Magnesium Lactate Dehydrogenase Total Creatine Kinase CK-MB (CK-2) C-Reactive Protein Total Protein Albumin Troponin T HDL Cholesterol Arterial Blood Glucose Urine WBC (Auto) 15.0 H Urine Creatinine Urine Total Protein Phenytoin Coronavirus (PCR) Crossmatch 06/06/20 06/06/20 06/06/20 04:00 05:33 05:38 WBC RBC 2.97 L Hgb 8.7 L Hct 26.8 L MCHC RDW 16.8 H Lymph % (Auto) [place] % (Auto) Eos % (Auto) Lymph # [place] # Lymph # (Auto) [place] # (Auto) Eos # (Auto) Seg Neutrophils % Seg Neuts % (Manual) Lymphocytes % (Manual) Seg Neutrophils # Seg Neutrophils # Man Lymphocytes # (Manual) Monocytes % (Manual) Eosinophils % (Manual) Monocytes # (Manual) Eosinophils # (Manual) D-Dimer Heparin Anti-Xa Level ABG pH POC ABG pCO2 POC ABG pO2 ABG pO2 ABG HCO3 ABG O2 Saturation ABG Base Excess ABG Hemoglobin ABG Oxyhemoglobin VBG pH ABG Sodium ABG Potassium ABG Glucose Oxyhemoglobin Sodium Potassium Chloride Carbon Dioxide BUN Creatinine Glucose POC Glucose 186 H Lactic Acid Calcium Ferritin AST Alkaline Phosphatase Magnesium Lactate Dehydrogenase Total Creatine Kinase CK-MB (CK-2) C-Reactive Protein Total Protein Albumin Troponin T HDL Cholesterol Arterial Blood Glucose Urine WBC (Auto) Urine Creatinine 82.2 H Urine Total Protein 196 H Phenytoin Coronavirus (PCR) Crossmatch 06/06/20 06/06/20 06/06/20 05:38 12:25 17:03 WBC RBC Hgb Hct MCHC RDW Lymph % (Auto) [place] % (Auto) Eos % (Auto) Lymph # [place] # Lymph # (Auto) [place] # (Auto) Eos # (Auto) Seg Neutrophils % Seg Neuts % (Manual) Lymphocytes % (Manual) Seg Neutrophils # Seg Neutrophils # Man Lymphocytes # (Manual) Monocytes % (Manual) Eosinophils % (Manual) Monocytes # (Manual) Eosinophils # (Manual) D-Dimer Heparin Anti-Xa Level ABG pH POC ABG pCO2 POC ABG pO2 ABG pO2 ABG HCO3 ABG O2 Saturation ABG Base Excess ABG Hemoglobin ABG Oxyhemoglobin VBG pH ABG Sodium ABG Potassium ABG Glucose Oxyhemoglobin Sodium 134 L Potassium 5.2 H Chloride Carbon Dioxide 18 L BUN 97 H Creatinine 2.5 H Glucose 193 H POC Glucose 239 H 252 H Lactic Acid Calcium 7.5 L Ferritin AST Alkaline Phosphatase Magnesium Lactate Dehydrogenase Total Creatine Kinase CK-MB (CK-2) C-Reactive Protein Total Protein 4.1 L Albumin 1.9 L Troponin T HDL Cholesterol Arterial Blood Glucose Urine WBC (Auto) Urine Creatinine Urine Total Protein Phenytoin Coronavirus (PCR) Crossmatch 06/07/20 06/07/20 06/07/20 00:16 01:49 04:00 WBC RBC 2.91 L Hgb 8.4 L Hct 25.0 L MCHC RDW 16.1 H Lymph % (Auto) 5.7 L [place] % (Auto) 10.5 H Eos % (Auto) Lymph # 0.6 L [place] # 1.1 H Lymph # (Auto) [place] # (Auto) Eos # (Auto) Seg Neutrophils % 83.6 H Seg Neuts % (Manual) Lymphocytes % (Manual) Seg Neutrophils # 9.1 H Seg Neutrophils # Man Lymphocytes # (Manual) Monocytes % (Manual) Eosinophils % (Manual) Monocytes # (Manual) Eosinophils # (Manual) D-Dimer Heparin Anti-Xa Level 0.26 L ABG pH POC ABG pCO2 POC ABG pO2 ABG pO2 ABG HCO3 ABG O2 Saturation ABG Base Excess ABG Hemoglobin ABG Oxyhemoglobin VBG pH ABG Sodium ABG Potassium ABG Glucose Oxyhemoglobin Sodium Potassium Chloride Carbon Dioxide BUN Creatinine Glucose POC Glucose 173 H Lactic Acid Calcium Ferritin AST Alkaline Phosphatase Magnesium Lactate Dehydrogenase Total Creatine Kinase CK-MB (CK-2) C-Reactive Protein Total Protein Albumin Troponin T HDL Cholesterol Arterial Blood Glucose Urine WBC (Auto) Urine Creatinine Urine Total Protein Phenytoin Coronavirus (PCR) Crossmatch 06/07/20 06/07/20 06/07/20 04:00 04:54 05:51 WBC RBC Hgb Hct MCHC RDW Lymph % (Auto) [place] % (Auto) Eos % (Auto) Lymph # [place] # Lymph # (Auto) [place] # (Auto) Eos # (Auto) Seg Neutrophils % Seg Neuts % (Manual) Lymphocytes % (Manual) Seg Neutrophils # Seg Neutrophils # Man Lymphocytes # (Manual) Monocytes % (Manual) Eosinophils % (Manual) Monocytes # (Manual) Eosinophils # (Manual) D-Dimer Heparin Anti-Xa Level ABG pH 7.317 L POC ABG pCO2 POC ABG pO2 ABG pO2 71.4 L ABG HCO3 ABG O2 Saturation 94.3 L ABG Base Excess -4.8 L ABG Hemoglobin 7.1 L ABG Oxyhemoglobin VBG pH ABG Sodium ABG Potassium ABG Glucose Oxyhemoglobin 92.2 L Sodium 133 L Potassium Chloride Carbon Dioxide 18 L BUN 100 H Creatinine 2.5 H Glucose 158 H POC Glucose 168 H Lactic Acid Calcium 7.6 L Ferritin AST Alkaline Phosphatase Magnesium Lactate Dehydrogenase Total Creatine Kinase CK-MB (CK-2) C-Reactive Protein Total Protein 4.7 L Albumin 2.0 L Troponin T HDL Cholesterol Arterial Blood Glucose Urine WBC (Auto) Urine Creatinine Urine Total Protein Phenytoin Coronavirus (PCR) Crossmatch 06/07/20 06/07/20 06/07/20 12:03 17:17 20:10 WBC RBC Hgb Hct MCHC RDW Lymph % (Auto) [place] % (Auto) Eos % (Auto) Lymph # [place] # Lymph # (Auto) [place] # (Auto) Eos # (Auto) Seg Neutrophils % Seg Neuts % (Manual) Lymphocytes % (Manual) Seg Neutrophils # Seg Neutrophils # Man Lymphocytes # (Manual) Monocytes % (Manual) Eosinophils % (Manual) Monocytes # (Manual) Eosinophils # (Manual) D-Dimer Heparin Anti-Xa Level 0.17 L ABG pH POC ABG pCO2 POC ABG pO2 ABG pO2 ABG HCO3 ABG O2 Saturation ABG Base Excess ABG Hemoglobin ABG Oxyhemoglobin VBG pH ABG Sodium ABG Potassium ABG Glucose Oxyhemoglobin Sodium Potassium Chloride Carbon Dioxide BUN Creatinine Glucose POC Glucose 276 H 281 H Lactic Acid Calcium Ferritin AST Alkaline Phosphatase Magnesium Lactate Dehydrogenase Total Creatine Kinase CK-MB (CK-2) C-Reactive Protein Total Protein Albumin Troponin T HDL Cholesterol Arterial Blood Glucose Urine WBC (Auto) Urine Creatinine Urine Total Protein Phenytoin Coronavirus (PCR) Crossmatch 06/08/20 06/08/20 06/08/20 00:02 04:47 04:47 WBC 16.4 H RBC 3.07 L Hgb 8.6 L Hct 26.5 L MCHC RDW 16.3 H Lymph % (Auto) [place] % (Auto) Eos % (Auto) Lymph # [place] # Lymph # (Auto) [place] # (Auto) Eos # (Auto) Seg Neutrophils % Seg Neuts % (Manual) 90.0 H Lymphocytes % (Manual) 3.0 L Seg Neutrophils # Seg Neutrophils # Man 14.8 H Lymphocytes # (Manual) 0.5 L Monocytes % (Manual) Eosinophils % (Manual) Monocytes # (Manual) 1.1 H Eosinophils # (Manual) D-Dimer Heparin Anti-Xa Level ABG pH POC ABG pCO2 POC ABG pO2 ABG pO2 ABG HCO3 ABG O2 Saturation ABG Base Excess ABG Hemoglobin ABG Oxyhemoglobin VBG pH ABG Sodium ABG Potassium ABG Glucose Oxyhemoglobin Sodium 129 L Potassium Chloride 95.6 L Carbon Dioxide 17 L BUN 106 H Creatinine 2.5 H Glucose 213 H POC Glucose 242 H Lactic Acid Calcium 7.6 L Ferritin AST Alkaline Phosphatase Magnesium Lactate Dehydrogenase Total Creatine Kinase CK-MB (CK-2) C-Reactive Protein Total Protein 5.0 L Albumin 2.1 L Troponin T HDL Cholesterol Arterial Blood Glucose Urine WBC (Auto) Urine Creatinine Urine Total Protein Phenytoin Coronavirus (PCR) Crossmatch 06/08/20 06/08/20 06/08/20 05:40 11:55 17:54 WBC RBC Hgb Hct MCHC RDW Lymph % (Auto) [place] % (Auto) Eos % (Auto) Lymph # [place] # Lymph # (Auto) [place] # (Auto) Eos # (Auto) Seg Neutrophils % Seg Neuts % (Manual) Lymphocytes % (Manual) Seg Neutrophils # Seg Neutrophils # Man Lymphocytes # (Manual) Monocytes % (Manual) Eosinophils % (Manual) Monocytes # (Manual) Eosinophils # (Manual) D-Dimer Heparin Anti-Xa Level ABG pH POC ABG pCO2 POC ABG pO2 ABG pO2 ABG HCO3 ABG O2 Saturation ABG Base Excess ABG Hemoglobin ABG Oxyhemoglobin VBG pH ABG Sodium ABG Potassium ABG Glucose Oxyhemoglobin Sodium Potassium Chloride Carbon Dioxide BUN Creatinine Glucose POC Glucose 221 H 218 H 163 H Lactic Acid Calcium Ferritin AST Alkaline Phosphatase Magnesium Lactate Dehydrogenase Total Creatine Kinase CK-MB (CK-2) C-Reactive Protein Total Protein Albumin Troponin T HDL Cholesterol Arterial Blood Glucose Urine WBC (Auto) Urine Creatinine Urine Total Protein Phenytoin Coronavirus (PCR) Crossmatch 06/08/20 06/09/20 06/09/20 22:01 00:09 05:16 WBC 19.0 H RBC 3.35 L Hgb 9.2 L Hct 28.5 L MCHC RDW 16.3 H Lymph % (Auto) [place] % (Auto) Eos % (Auto) Lymph # [place] # Lymph # (Auto) [place] # (Auto) Eos # (Auto) Seg Neutrophils % Seg Neuts % (Manual) 85.0 H Lymphocytes % (Manual) 7.0 L Seg Neutrophils # Seg Neutrophils # Man 16.2 H Lymphocytes # (Manual) Monocytes % (Manual) Eosinophils % (Manual) Monocytes # (Manual) 1.3 H Eosinophils # (Manual) D-Dimer Heparin Anti-Xa Level ABG pH POC ABG pCO2 POC ABG pO2 ABG pO2 ABG HCO3 ABG O2 Saturation ABG Base Excess ABG Hemoglobin ABG Oxyhemoglobin VBG pH ABG Sodium ABG Potassium ABG Glucose Oxyhemoglobin Sodium Potassium Chloride Carbon Dioxide BUN Creatinine Glucose POC Glucose 182 H 150 H Lactic Acid Calcium Ferritin AST Alkaline Phosphatase Magnesium Lactate Dehydrogenase Total Creatine Kinase CK-MB (CK-2) C-Reactive Protein Total Protein Albumin Troponin T HDL Cholesterol Arterial Blood Glucose Urine WBC (Auto) Urine Creatinine Urine Total Protein Phenytoin Coronavirus (PCR) Crossmatch 06/09/20 06/09/20 06/09/20 05:16 05:24 11:29 WBC RBC Hgb Hct MCHC RDW Lymph % (Auto) [place] % (Auto) Eos % (Auto) Lymph # [place] # Lymph # (Auto) [place] # (Auto) Eos # (Auto) Seg Neutrophils % Seg Neuts % (Manual) Lymphocytes % (Manual) Seg Neutrophils # Seg Neutrophils # Man Lymphocytes # (Manual) Monocytes % (Manual) Eosinophils % (Manual) Monocytes # (Manual) Eosinophils # (Manual) D-Dimer Heparin Anti-Xa Level ABG pH POC ABG pCO2 POC ABG pO2 ABG pO2 ABG HCO3 ABG O2 Saturation ABG Base Excess ABG Hemoglobin ABG Oxyhemoglobin VBG pH ABG Sodium ABG Potassium ABG Glucose Oxyhemoglobin Sodium 133 L Potassium Chloride Carbon Dioxide 19 L BUN 109 H Creatinine 2.1 H Glucose 133 H POC Glucose 128 H 119 H Lactic Acid Calcium 7.7 L Ferritin AST Alkaline Phosphatase < 5 L Magnesium Lactate Dehydrogenase Total Creatine Kinase CK-MB (CK-2) C-Reactive Protein Total Protein 4.6 L Albumin < 0.2 L Troponin T HDL Cholesterol Arterial Blood Glucose Urine WBC (Auto) Urine Creatinine Urine Total Protein Phenytoin Coronavirus (PCR) Crossmatch 06/09/20 06/10/20 06/10/20 17:32 00:00 05:49 WBC RBC Hgb Hct MCHC RDW Lymph % (Auto) [place] % (Auto) Eos % (Auto) Lymph # [place] # Lymph # (Auto) [place] # (Auto) Eos # (Auto) Seg Neutrophils % Seg Neuts % (Manual) Lymphocytes % (Manual) Seg Neutrophils # Seg Neutrophils # Man Lymphocytes # (Manual) Monocytes % (Manual) Eosinophils % (Manual) Monocytes # (Manual) Eosinophils # (Manual) D-Dimer Heparin Anti-Xa Level 0.19 L ABG pH POC ABG pCO2 POC ABG pO2 ABG pO2 ABG HCO3 ABG O2 Saturation ABG Base Excess ABG Hemoglobin ABG Oxyhemoglobin VBG pH ABG Sodium ABG Potassium ABG Glucose Oxyhemoglobin Sodium Potassium Chloride Carbon Dioxide BUN Creatinine Glucose POC Glucose 106 H 117 H Lactic Acid Calcium Ferritin AST Alkaline Phosphatase Magnesium Lactate Dehydrogenase Total Creatine Kinase CK-MB (CK-2) C-Reactive Protein Total Protein Albumin Troponin T HDL Cholesterol Arterial Blood Glucose Urine WBC (Auto) Urine Creatinine Urine Total Protein Phenytoin Coronavirus (PCR) Crossmatch 06/10/20 06/10/20 06/10/20 05:54 07:40 11:40 WBC RBC Hgb Hct MCHC RDW Lymph % (Auto) [place] % (Auto) Eos % (Auto) Lymph # [place] # Lymph # (Auto) [place] # (Auto) Eos # (Auto) Seg Neutrophils % Seg Neuts % (Manual) Lymphocytes % (Manual) Seg Neutrophils # Seg Neutrophils # Man Lymphocytes # (Manual) Monocytes % (Manual) Eosinophils % (Manual) Monocytes # (Manual) Eosinophils # (Manual) D-Dimer Heparin Anti-Xa Level ABG pH POC ABG pCO2 POC ABG pO2 ABG pO2 ABG HCO3 ABG O2 Saturation ABG Base Excess ABG Hemoglobin ABG Oxyhemoglobin VBG pH ABG Sodium ABG Potassium ABG Glucose Oxyhemoglobin Sodium 146 H D Potassium Chloride Carbon Dioxide 20 L BUN 99 H Creatinine 1.9 H Glucose 121 H POC Glucose 127 H 138 H Lactic Acid Calcium 8.2 L Ferritin AST Alkaline Phosphatase Magnesium Lactate Dehydrogenase Total Creatine Kinase CK-MB (CK-2) C-Reactive Protein Total Protein Albumin Troponin T HDL Cholesterol Arterial Blood Glucose Urine WBC (Auto) Urine Creatinine Urine Total Protein Phenytoin Coronavirus (PCR) Crossmatch 06/10/20 06/10/20 06/10/20 14:44 17:31 23:22 WBC RBC Hgb Hct MCHC RDW Lymph % (Auto) [place] % (Auto) Eos % (Auto) Lymph # [place] # Lymph # (Auto) [place] # (Auto) Eos # (Auto) Seg Neutrophils % Seg Neuts % (Manual) Lymphocytes % (Manual) Seg Neutrophils # Seg Neutrophils # Man Lymphocytes # (Manual) Monocytes % (Manual) Eosinophils % (Manual) Monocytes # (Manual) Eosinophils # (Manual) D-Dimer Heparin Anti-Xa Level 0.17 L ABG pH POC ABG pCO2 POC ABG pO2 ABG pO2 ABG HCO3 ABG O2 Saturation ABG Base Excess ABG Hemoglobin ABG Oxyhemoglobin VBG pH ABG Sodium ABG Potassium ABG Glucose Oxyhemoglobin Sodium Potassium Chloride Carbon Dioxide BUN Creatinine Glucose POC Glucose 128 H 114 H Lactic Acid Calcium Ferritin AST Alkaline Phosphatase Magnesium Lactate Dehydrogenase Total Creatine Kinase CK-MB (CK-2) C-Reactive Protein Total Protein Albumin Troponin T HDL Cholesterol Arterial Blood Glucose Urine WBC (Auto) Urine Creatinine Urine Total Protein Phenytoin Coronavirus (PCR) Crossmatch 06/11/20 06/11/20 06/11/20 00:22 03:45 03:45 WBC 14.6 H RBC 2.77 L Hgb 7.9 L Hct 24.3 L MCHC RDW 16.8 H Lymph % (Auto) 6.6 L [place]ole % (Auto) 8.5 H Eos % (Auto) Lymph # 1.0 L [place] # 1.2 H Lymph # (Auto) [place] # (Auto) Eos # (Auto) Seg Neutrophils % 82.9 H Seg Neuts % (Manual) Lymphocytes % (Manual) Seg Neutrophils # 12.1 H Seg Neutrophils # Man Lymphocytes # (Manual) Monocytes % (Manual) Eosinophils % (Manual) Monocytes # (Manual) Eosinophils # (Manual) D-Dimer Heparin Anti-Xa Level 0.24 L ABG pH POC ABG pCO2 POC ABG pO2 ABG pO2 ABG HCO3 ABG O2 Saturation ABG Base Excess ABG Hemoglobin ABG Oxyhemoglobin VBG pH ABG Sodium ABG Potassium ABG Glucose Oxyhemoglobin Sodium Potassium Chloride Carbon Dioxide 20 L BUN 88 H Creatinine 1.5 H Glucose 111 H POC Glucose Lactic Acid Calcium 8.2 L Ferritin AST Alkaline Phosphatase Magnesium Lactate Dehydrogenase Total Creatine Kinase CK-MB (CK-2) C-Reactive Protein Total Protein Albumin Troponin T HDL Cholesterol Arterial Blood Glucose Urine WBC (Auto) Urine Creatinine Urine Total Protein Phenytoin Coronavirus (PCR) Crossmatch 06/11/20 06/11/20 06/11/20 06:03 10:22 11:11 WBC RBC Hgb Hct MCHC RDW Lymph % (Auto) [place] % (Auto) Eos % (Auto) Lymph # [place] # Lymph # (Auto) [place] # (Auto) Eos # (Auto) Seg Neutrophils % Seg Neuts % (Manual) Lymphocytes % (Manual) Seg Neutrophils # Seg Neutrophils # Man Lymphocytes # (Manual) Monocytes % (Manual) Eosinophils % (Manual) Monocytes # (Manual) Eosinophils # (Manual) D-Dimer Heparin Anti-Xa Level 0.26 L ABG pH POC ABG pCO2 POC ABG pO2 ABG pO2 ABG HCO3 ABG O2 Saturation ABG Base Excess ABG Hemoglobin 9.6 L ABG Oxyhemoglobin VBG pH ABG Sodium ABG Potassium ABG Glucose Oxyhemoglobin Sodium Potassium Chloride Carbon Dioxide BUN Creatinine Glucose POC Glucose 114 H Lactic Acid Calcium Ferritin AST Alkaline Phosphatase Magnesium Lactate Dehydrogenase Total Creatine Kinase CK-MB (CK-2) C-Reactive Protein Total Protein Albumin Troponin T HDL Cholesterol Arterial Blood Glucose Urine WBC (Auto) Urine Creatinine Urine Total Protein Phenytoin Coronavirus (PCR) Crossmatch 06/11/20 06/11/20 06/12/20 12:24 17:24 00:21 WBC RBC Hgb Hct MCHC RDW Lymph % (Auto) [place] % (Auto) Eos % (Auto) Lymph # [place] # Lymph # (Auto) [place] # (Auto) Eos # (Auto) Seg Neutrophils % Seg Neuts % (Manual) Lymphocytes % (Manual) Seg Neutrophils # Seg Neutrophils # Man Lymphocytes # (Manual) Monocytes % (Manual) Eosinophils % (Manual) Monocytes # (Manual) Eosinophils # (Manual) D-Dimer Heparin Anti-Xa Level ABG pH POC ABG pCO2 POC ABG pO2 ABG pO2 ABG HCO3 ABG O2 Saturation ABG Base Excess ABG Hemoglobin ABG Oxyhemoglobin VBG pH ABG Sodium ABG Potassium ABG Glucose Oxyhemoglobin Sodium Potassium Chloride Carbon Dioxide BUN Creatinine Glucose POC Glucose 119 H 126 H 117 H Lactic Acid Calcium Ferritin AST Alkaline Phosphatase Magnesium Lactate Dehydrogenase Total Creatine Kinase CK-MB (CK-2) C-Reactive Protein Total Protein Albumin Troponin T HDL Cholesterol Arterial Blood Glucose Urine WBC (Auto) Urine Creatinine Urine Total Protein Phenytoin Coronavirus (PCR) Crossmatch 06/12/20 06/12/20 06/12/20 02:46 02:46 05:46 WBC 13.2 H RBC 2.83 L Hgb 8.3 L Hct 24.3 L MCHC RDW 16.6 H Lymph % (Auto) 6.2 L [place] % (Auto) 9.5 H Eos % (Auto) Lymph # 0.8 L [place] # 1.3 H Lymph # (Auto) [place] # (Auto) Eos # (Auto) Seg Neutrophils % 81.9 H Seg Neuts % (Manual) Lymphocytes % (Manual) Seg Neutrophils # 10.9 H Seg Neutrophils # Man Lymphocytes # (Manual) Monocytes % (Manual) Eosinophils % (Manual) Monocytes # (Manual) Eosinophils # (Manual) D-Dimer Heparin Anti-Xa Level ABG pH POC ABG pCO2 POC ABG pO2 ABG pO2 ABG HCO3 ABG O2 Saturation ABG Base Excess ABG Hemoglobin ABG Oxyhemoglobin VBG pH ABG Sodium ABG Potassium ABG Glucose Oxyhemoglobin Sodium Potassium 3.5 L Chloride Carbon Dioxide BUN 77 H Creatinine 1.3 H Glucose POC Glucose 132 H Lactic Acid Calcium 8.3 L Ferritin AST Alkaline Phosphatase Magnesium Lactate Dehydrogenase Total Creatine Kinase CK-MB (CK-2) C-Reactive Protein Total Protein Albumin Troponin T HDL Cholesterol Arterial Blood Glucose Urine WBC (Auto) Urine Creatinine Urine Total Protein Phenytoin Coronavirus (PCR) Crossmatch 06/12/20 06/12/20 06/12/20 09:20 12:16 17:48 WBC RBC Hgb Hct MCHC RDW Lymph % (Auto) [place] % (Auto) Eos % (Auto) Lymph # [place] # Lymph # (Auto) [place] # (Auto) Eos # (Auto) Seg Neutrophils % Seg Neuts % (Manual) Lymphocytes % (Manual) Seg Neutrophils # Seg Neutrophils # Man Lymphocytes # (Manual) Monocytes % (Manual) Eosinophils % (Manual) Monocytes # (Manual) Eosinophils # (Manual) D-Dimer Heparin Anti-Xa Level ABG pH POC ABG pCO2 POC ABG pO2 ABG pO2 91.1 H ABG HCO3 ABG O2 Saturation ABG Base Excess ABG Hemoglobin ABG Oxyhemoglobin VBG pH ABG Sodium ABG Potassium ABG Glucose Oxyhemoglobin 94.8 L Sodium Potassium Chloride Carbon Dioxide BUN Creatinine Glucose POC Glucose 167 H 182 H Lactic Acid Calcium Ferritin AST Alkaline Phosphatase Magnesium Lactate Dehydrogenase Total Creatine Kinase CK-MB (CK-2) C-Reactive Protein Total Protein Albumin Troponin T HDL Cholesterol Arterial Blood Glucose Urine WBC (Auto) Urine Creatinine Urine Total Protein Phenytoin Coronavirus (PCR) Crossmatch 06/13/20 06/13/20 06/13/20 00:08 05:37 09:09 WBC RBC Hgb Hct MCHC RDW Lymph % (Auto) [place] % (Auto) Eos % (Auto) Lymph # [place] # Lymph # (Auto) [place] # (Auto) Eos # (Auto) Seg Neutrophils % Seg Neuts % (Manual) Lymphocytes % (Manual) Seg Neutrophils # Seg Neutrophils # Man Lymphocytes # (Manual) Monocytes % (Manual) Eosinophils % (Manual) Monocytes # (Manual) Eosinophils # (Manual) D-Dimer Heparin Anti-Xa Level 0.86 H ABG pH POC ABG pCO2 POC ABG pO2 ABG pO2 ABG HCO3 ABG O2 Saturation ABG Base Excess ABG Hemoglobin ABG Oxyhemoglobin VBG pH ABG Sodium ABG Potassium ABG Glucose Oxyhemoglobin Sodium Potassium Chloride Carbon Dioxide BUN Creatinine Glucose POC Glucose 142 H 119 H Lactic Acid Calcium Ferritin AST Alkaline Phosphatase Magnesium Lactate Dehydrogenase Total Creatine Kinase CK-MB (CK-2) C-Reactive Protein Total Protein Albumin Troponin T HDL Cholesterol Arterial Blood Glucose Urine WBC (Auto) Urine Creatinine Urine Total Protein Phenytoin Coronavirus (PCR) Crossmatch 06/13/20 06/13/20 06/13/20 12:28 17:55 21:17 WBC RBC Hgb Hct MCHC RDW Lymph % (Auto) [place] % (Auto) Eos % (Auto) Lymph # [place] # Lymph # (Auto) [place] # (Auto) Eos # (Auto) Seg Neutrophils % Seg Neuts % (Manual) Lymphocytes % (Manual) Seg Neutrophils # Seg Neutrophils # Man Lymphocytes # (Manual) Monocytes % (Manual) Eosinophils % (Manual) Monocytes # (Manual) Eosinophils # (Manual) D-Dimer Heparin Anti-Xa Level ABG pH POC ABG pCO2 POC ABG pO2 ABG pO2 ABG HCO3 ABG O2 Saturation ABG Base Excess ABG Hemoglobin ABG Oxyhemoglobin VBG pH ABG Sodium ABG Potassium ABG Glucose Oxyhemoglobin Sodium Potassium Chloride Carbon Dioxide BUN 61 H Creatinine Glucose 131 H POC Glucose 165 H 174 H Lactic Acid Calcium Ferritin AST Alkaline Phosphatase Magnesium Lactate Dehydrogenase Total Creatine Kinase CK-MB (CK-2) C-Reactive Protein Total Protein Albumin Troponin T HDL Cholesterol Arterial Blood Glucose Urine WBC (Auto) Urine Creatinine Urine Total Protein Phenytoin Coronavirus (PCR) Crossmatch 06/13/20 06/13/20 06/14/20 21:17 23:50 05:34 WBC RBC Hgb Hct MCHC RDW Lymph % (Auto) [place] % (Auto) Eos % (Auto) Lymph # [place] # Lymph # (Auto) [place] # (Auto) Eos # (Auto) Seg Neutrophils % Seg Neuts % (Manual) Lymphocytes % (Manual) Seg Neutrophils # Seg Neutrophils # Man Lymphocytes # (Manual) Monocytes % (Manual) Eosinophils % (Manual) Monocytes # (Manual) Eosinophils # (Manual) D-Dimer Heparin Anti-Xa Level 0.72 H ABG pH POC ABG pCO2 POC ABG pO2 ABG pO2 ABG HCO3 ABG O2 Saturation ABG Base Excess ABG Hemoglobin ABG Oxyhemoglobin VBG pH ABG Sodium ABG Potassium ABG Glucose Oxyhemoglobin Sodium 146 H Potassium Chloride 107.6 H Carbon Dioxide BUN 61 H Creatinine 1.3 H Glucose 135 H POC Glucose 146 H Lactic Acid Calcium Ferritin AST Alkaline Phosphatase Magnesium Lactate Dehydrogenase Total Creatine Kinase CK-MB (CK-2) C-Reactive Protein Total Protein Albumin Troponin T HDL Cholesterol Arterial Blood Glucose Urine WBC (Auto) Urine Creatinine Urine Total Protein Phenytoin Coronavirus (PCR) Crossmatch 06/14/20 06/14/20 06/14/20 06:11 09:28 11:30 WBC RBC Hgb Hct MCHC RDW Lymph % (Auto) [place] % (Auto) Eos % (Auto) Lymph # [place] # Lymph # (Auto) [place] # (Auto) Eos # (Auto) Seg Neutrophils % Seg Neuts % (Manual) Lymphocytes % (Manual) Seg Neutrophils # Seg Neutrophils # Man Lymphocytes # (Manual) Monocytes % (Manual) Eosinophils % (Manual) Monocytes # (Manual) Eosinophils # (Manual) D-Dimer Heparin Anti-Xa Level 0.90 H ABG pH POC ABG pCO2 POC ABG pO2 ABG pO2 ABG HCO3 ABG O2 Saturation ABG Base Excess ABG Hemoglobin ABG Oxyhemoglobin VBG pH ABG Sodium ABG Potassium ABG Glucose Oxyhemoglobin Sodium Potassium Chloride Carbon Dioxide BUN Creatinine Glucose POC Glucose 141 H 186 H Lactic Acid Calcium Ferritin AST Alkaline Phosphatase Magnesium Lactate Dehydrogenase Total Creatine Kinase CK-MB (CK-2) C-Reactive Protein Total Protein Albumin Troponin T HDL Cholesterol Arterial Blood Glucose Urine WBC (Auto) Urine Creatinine Urine Total Protein Phenytoin Coronavirus (PCR) Crossmatch 06/14/20 06/14/20 06/14/20 16:07 18:16 23:51 WBC RBC Hgb Hct MCHC RDW Lymph % (Auto) [place] % (Auto) Eos % (Auto) Lymph # [place] # Lymph # (Auto) [place] # (Auto) Eos # (Auto) Seg Neutrophils % Seg Neuts % (Manual) Lymphocytes % (Manual) Seg Neutrophils # Seg Neutrophils # Man Lymphocytes # (Manual) Monocytes % (Manual) Eosinophils % (Manual) Monocytes # (Manual) Eosinophils # (Manual) D-Dimer Heparin Anti-Xa Level 0.82 H ABG pH POC ABG pCO2 POC ABG pO2 ABG pO2 ABG HCO3 ABG O2 Saturation ABG Base Excess ABG Hemoglobin ABG Oxyhemoglobin VBG pH ABG Sodium ABG Potassium ABG Glucose Oxyhemoglobin Sodium Potassium Chloride Carbon Dioxide BUN Creatinine Glucose POC Glucose 106 H 154 H Lactic Acid Calcium Ferritin AST Alkaline Phosphatase Magnesium Lactate Dehydrogenase Total Creatine Kinase CK-MB (CK-2) C-Reactive Protein Total Protein Albumin Troponin T HDL Cholesterol Arterial Blood Glucose Urine WBC (Auto) Urine Creatinine Urine Total Protein Phenytoin Coronavirus (PCR) Crossmatch 06/15/20 06/15/20 06/15/20 04:24 04:24 05:59 WBC RBC 2.75 L Hgb 7.9 L Hct 24.0 L MCHC RDW 16.4 H Lymph % (Auto) 12.9 L [place] % (Auto) 8.7 H Eos % (Auto) 4.6 H Lymph # 1.1 L [place] # Lymph # (Auto) [place] # (Auto) Eos # (Auto) Seg Neutrophils % 73.2 H Seg Neuts % (Manual) Lymphocytes % (Manual) Seg Neutrophils # Seg Neutrophils # Man Lymphocytes # (Manual) Monocytes % (Manual) Eosinophils % (Manual) Monocytes # (Manual) Eosinophils # (Manual) D-Dimer Heparin Anti-Xa Level ABG pH POC ABG pCO2 POC ABG pO2 ABG pO2 ABG HCO3 ABG O2 Saturation ABG Base Excess ABG Hemoglobin ABG Oxyhemoglobin VBG pH ABG Sodium ABG Potassium ABG Glucose Oxyhemoglobin Sodium Potassium 3.4 L Chloride Carbon Dioxide BUN 55 H Creatinine 1.3 H Glucose 142 H POC Glucose 131 H Lactic Acid Calcium Ferritin AST Alkaline Phosphatase Magnesium Lactate Dehydrogenase Total Creatine Kinase CK-MB (CK-2) C-Reactive Protein Total Protein Albumin Troponin T HDL Cholesterol Arterial Blood Glucose Urine WBC (Auto) Urine Creatinine Urine Total Protein Phenytoin Coronavirus (PCR) Crossmatch 06/15/20 06/15/20 06/16/20 12:33 17:07 00:22 WBC RBC Hgb Hct MCHC RDW Lymph % (Auto) [place] % (Auto) Eos % (Auto) Lymph # [place] # Lymph # (Auto) [place] # (Auto) Eos # (Auto) Seg Neutrophils % Seg Neuts % (Manual) Lymphocytes % (Manual) Seg Neutrophils # Seg Neutrophils # Man Lymphocytes # (Manual) Monocytes % (Manual) Eosinophils % (Manual) Monocytes # (Manual) Eosinophils # (Manual) D-Dimer Heparin Anti-Xa Level 0.21 L ABG pH POC ABG pCO2 POC ABG pO2 ABG pO2 ABG HCO3 ABG O2 Saturation ABG Base Excess ABG Hemoglobin ABG Oxyhemoglobin VBG pH ABG Sodium ABG Potassium ABG Glucose Oxyhemoglobin Sodium Potassium Chloride Carbon Dioxide BUN Creatinine Glucose POC Glucose 180 H 185 H Lactic Acid Calcium Ferritin AST Alkaline Phosphatase Magnesium Lactate Dehydrogenase Total Creatine Kinase CK-MB (CK-2) C-Reactive Protein Total Protein Albumin Troponin T HDL Cholesterol Arterial Blood Glucose Urine WBC (Auto) Urine Creatinine Urine Total Protein Phenytoin Coronavirus (PCR) Crossmatch 06/16/20 06/16/20 06/16/20 01:45 08:06 09:15 WBC RBC Hgb Hct MCHC RDW Lymph % (Auto) [place] % (Auto) Eos % (Auto) Lymph # [place] # Lymph # (Auto) [place] # (Auto) Eos # (Auto) Seg Neutrophils % Seg Neuts % (Manual) Lymphocytes % (Manual) Seg Neutrophils # Seg Neutrophils # Man Lymphocytes # (Manual) Monocytes % (Manual) Eosinophils % (Manual) Monocytes # (Manual) Eosinophils # (Manual) D-Dimer Heparin Anti-Xa Level ABG pH POC ABG pCO2 POC ABG pO2 ABG pO2 ABG HCO3 ABG O2 Saturation ABG Base Excess ABG Hemoglobin ABG Oxyhemoglobin VBG pH ABG Sodium ABG Potassium ABG Glucose Oxyhemoglobin Sodium Potassium Chloride Carbon Dioxide BUN 49 H Creatinine Glucose 154 H POC Glucose 140 H 171 H Lactic Acid Calcium Ferritin AST Alkaline Phosphatase Magnesium Lactate Dehydrogenase Total Creatine Kinase CK-MB (CK-2) C-Reactive Protein Total Protein Albumin Troponin T HDL Cholesterol Arterial Blood Glucose Urine WBC (Auto) Urine Creatinine Urine Total Protein Phenytoin Coronavirus (PCR) Crossmatch 06/16/20 06/16/20 06/16/20 10:46 12:33 17:54 WBC RBC Hgb Hct MCHC RDW Lymph % (Auto) [place] % (Auto) Eos % (Auto) Lymph # [place] # Lymph # (Auto) [place] # (Auto) Eos # (Auto) Seg Neutrophils % Seg Neuts % (Manual) Lymphocytes % (Manual) Seg Neutrophils # Seg Neutrophils # Man Lymphocytes # (Manual) Monocytes % (Manual) Eosinophils % (Manual) Monocytes # (Manual) Eosinophils # (Manual) D-Dimer Heparin Anti-Xa Level 0.12 L ABG pH POC ABG pCO2 POC ABG pO2 ABG pO2 ABG HCO3 ABG O2 Saturation ABG Base Excess ABG Hemoglobin ABG Oxyhemoglobin VBG pH ABG Sodium ABG Potassium ABG Glucose Oxyhemoglobin Sodium Potassium Chloride Carbon Dioxide BUN Creatinine Glucose POC Glucose 166 H 151 H Lactic Acid Calcium Ferritin AST Alkaline Phosphatase Magnesium Lactate Dehydrogenase Total Creatine Kinase CK-MB (CK-2) C-Reactive Protein Total Protein Albumin Troponin T HDL Cholesterol Arterial Blood Glucose Urine WBC (Auto) Urine Creatinine Urine Total Protein Phenytoin Coronavirus (PCR) Crossmatch 06/16/20 06/17/20 06/17/20 18:47 00:00 02:19 WBC RBC Hgb Hct MCHC RDW Lymph % (Auto) [place] % (Auto) Eos % (Auto) Lymph # [place] # Lymph # (Auto) [place] # (Auto) Eos # (Auto) Seg Neutrophils % Seg Neuts % (Manual) Lymphocytes % (Manual) Seg Neutrophils # Seg Neutrophils # Man Lymphocytes # (Manual) Monocytes % (Manual) Eosinophils % (Manual) Monocytes # (Manual) Eosinophils # (Manual) D-Dimer Heparin Anti-Xa Level 0.73 H 0.77 H ABG pH POC ABG pCO2 POC ABG pO2 ABG pO2 ABG HCO3 ABG O2 Saturation ABG Base Excess ABG Hemoglobin ABG Oxyhemoglobin VBG pH ABG Sodium ABG Potassium ABG Glucose Oxyhemoglobin Sodium Potassium Chloride Carbon Dioxide BUN Creatinine Glucose POC Glucose 139 H Lactic Acid Calcium Ferritin AST Alkaline Phosphatase Magnesium Lactate Dehydrogenase Total Creatine Kinase CK-MB (CK-2) C-Reactive Protein Total Protein Albumin Troponin T HDL Cholesterol Arterial Blood Glucose Urine WBC (Auto) Urine Creatinine Urine Total Protein Phenytoin Coronavirus (PCR) Crossmatch 06/17/20 06/17/20 06/17/20 06:07 11:42 16:43 WBC RBC Hgb Hct MCHC RDW Lymph % (Auto) [place] % (Auto) Eos % (Auto) Lymph # [place] # Lymph # (Auto) [place] # (Auto) Eos # (Auto) Seg Neutrophils % Seg Neuts % (Manual) Lymphocytes % (Manual) Seg Neutrophils # Seg Neutrophils # Man Lymphocytes # (Manual) Monocytes % (Manual) Eosinophils % (Manual) Monocytes # (Manual) Eosinophils # (Manual) D-Dimer Heparin Anti-Xa Level 0.73 H ABG pH POC ABG pCO2 POC ABG pO2 ABG pO2 ABG HCO3 ABG O2 Saturation ABG Base Excess ABG Hemoglobin ABG Oxyhemoglobin VBG pH ABG Sodium ABG Potassium ABG Glucose Oxyhemoglobin Sodium Potassium Chloride Carbon Dioxide BUN Creatinine Glucose POC Glucose 169 H 169 H Lactic Acid Calcium Ferritin AST Alkaline Phosphatase Magnesium Lactate Dehydrogenase Total Creatine Kinase CK-MB (CK-2) C-Reactive Protein Total Protein Albumin Troponin T HDL Cholesterol Arterial Blood Glucose Urine WBC (Auto) Urine Creatinine Urine Total Protein Phenytoin Coronavirus (PCR) Crossmatch 06/17/20 06/17/20 06/17/20 18:18 23:08 23:16 WBC RBC Hgb Hct MCHC RDW Lymph % (Auto) [place] % (Auto) Eos % (Auto) Lymph # [place] # Lymph # (Auto) [place] # (Auto) Eos # (Auto) Seg Neutrophils % Seg Neuts % (Manual) Lymphocytes % (Manual) Seg Neutrophils # Seg Neutrophils # Man Lymphocytes # (Manual) Monocytes % (Manual) Eosinophils % (Manual) Monocytes # (Manual) Eosinophils # (Manual) D-Dimer Heparin Anti-Xa Level 0.71 H ABG pH POC ABG pCO2 POC ABG pO2 ABG pO2 ABG HCO3 ABG O2 Saturation ABG Base Excess ABG Hemoglobin ABG Oxyhemoglobin VBG pH ABG Sodium ABG Potassium ABG Glucose Oxyhemoglobin Sodium Potassium Chloride Carbon Dioxide BUN Creatinine Glucose POC Glucose 159 H 134 H Lactic Acid Calcium Ferritin AST Alkaline Phosphatase Magnesium Lactate Dehydrogenase Total Creatine Kinase CK-MB (CK-2) C-Reactive Protein Total Protein Albumin Troponin T HDL Cholesterol Arterial Blood Glucose Urine WBC (Auto) Urine Creatinine Urine Total Protein Phenytoin Coronavirus (PCR) Crossmatch 06/18/20 06/18/20 06/18/20 04:42 05:52 11:50 WBC RBC Hgb Hct MCHC RDW Lymph % (Auto) [place] % (Auto) Eos % (Auto) Lymph # [place] # Lymph # (Auto) [place] # (Auto) Eos # (Auto) Seg Neutrophils % Seg Neuts % (Manual) Lymphocytes % (Manual) Seg Neutrophils # Seg Neutrophils # Man Lymphocytes # (Manual) Monocytes % (Manual) Eosinophils % (Manual) Monocytes # (Manual) Eosinophils # (Manual) D-Dimer Heparin Anti-Xa Level ABG pH POC ABG pCO2 POC ABG pO2 ABG pO2 ABG HCO3 ABG O2 Saturation ABG Base Excess ABG Hemoglobin ABG Oxyhemoglobin VBG pH ABG Sodium ABG Potassium ABG Glucose Oxyhemoglobin Sodium Potassium Chloride Carbon Dioxide BUN 44 H Creatinine Glucose 115 H POC Glucose 171 H 167 H Lactic Acid Calcium Ferritin AST Alkaline Phosphatase Magnesium Lactate Dehydrogenase Total Creatine Kinase CK-MB (CK-2) C-Reactive Protein Total Protein Albumin Troponin T HDL Cholesterol Arterial Blood Glucose Urine WBC (Auto) Urine Creatinine Urine Total Protein Phenytoin Coronavirus (PCR) Crossmatch 06/18/20 06/19/20 06/19/20 23:46 05:48 07:52 WBC RBC Hgb Hct MCHC RDW Lymph % (Auto) [place] % (Auto) Eos % (Auto) Lymph # [place] # Lymph # (Auto) [place] # (Auto) Eos # (Auto) Seg Neutrophils % Seg Neuts % (Manual) Lymphocytes % (Manual) Seg Neutrophils # Seg Neutrophils # Man Lymphocytes # (Manual) Monocytes % (Manual) Eosinophils % (Manual) Monocytes # (Manual) Eosinophils # (Manual) D-Dimer Heparin Anti-Xa Level ABG pH POC ABG pCO2 POC ABG pO2 ABG pO2 ABG HCO3 ABG O2 Saturation ABG Base Excess ABG Hemoglobin ABG Oxyhemoglobin VBG pH ABG Sodium ABG Potassium ABG Glucose Oxyhemoglobin Sodium Potassium Chloride Carbon Dioxide BUN Creatinine Glucose POC Glucose 130 H 207 H 175 H Lactic Acid Calcium Ferritin AST Alkaline Phosphatase Magnesium Lactate Dehydrogenase Total Creatine Kinase CK-MB (CK-2) C-Reactive Protein Total Protein Albumin Troponin T HDL Cholesterol Arterial Blood Glucose Urine WBC (Auto) Urine Creatinine Urine Total Protein Phenytoin Coronavirus (PCR) Crossmatch 06/19/20 06/19/20 06/20/20 11:42 22:54 05:17 WBC RBC Hgb Hct MCHC RDW Lymph % (Auto) [place] % (Auto) Eos % (Auto) Lymph # [place] # Lymph # (Auto) [place] # (Auto) Eos # (Auto) Seg Neutrophils % Seg Neuts % (Manual) Lymphocytes % (Manual) Seg Neutrophils # Seg Neutrophils # Man Lymphocytes # (Manual) Monocytes % (Manual) Eosinophils % (Manual) Monocytes # (Manual) Eosinophils # (Manual) D-Dimer Heparin Anti-Xa Level ABG pH POC ABG pCO2 POC ABG pO2 ABG pO2 ABG HCO3 ABG O2 Saturation ABG Base Excess ABG Hemoglobin ABG Oxyhemoglobin VBG pH ABG Sodium ABG Potassium ABG Glucose Oxyhemoglobin Sodium Potassium Chloride Carbon Dioxide BUN Creatinine Glucose POC Glucose 166 H 135 H 218 H Lactic Acid Calcium Ferritin AST Alkaline Phosphatase Magnesium Lactate Dehydrogenase Total Creatine Kinase CK-MB (CK-2) C-Reactive Protein Total Protein Albumin Troponin T HDL Cholesterol Arterial Blood Glucose Urine WBC (Auto) Urine Creatinine Urine Total Protein Phenytoin Coronavirus (PCR) Crossmatch 06/20/20 06/20/20 06/20/20 12:04 16:25 16:35 WBC RBC Hgb Hct MCHC RDW Lymph % (Auto) [place] % (Auto) Eos % (Auto) Lymph # [place] # Lymph # (Auto) [place] # (Auto) Eos # (Auto) Seg Neutrophils % Seg Neuts % (Manual) Lymphocytes % (Manual) Seg Neutrophils # Seg Neutrophils # Man Lymphocytes # (Manual) Monocytes % (Manual) Eosinophils % (Manual) Monocytes # (Manual) Eosinophils # (Manual) D-Dimer Heparin Anti-Xa Level ABG pH POC ABG pCO2 POC ABG pO2 ABG pO2 59.6 L ABG HCO3 28.7 H ABG O2 Saturation 93.5 L ABG Base Excess 3.4 H ABG Hemoglobin 7.2 L ABG Oxyhemoglobin VBG pH ABG Sodium ABG Potassium ABG Glucose Oxyhemoglobin 91.3 L Sodium Potassium Chloride Carbon Dioxide BUN Creatinine Glucose POC Glucose 194 H 137 H Lactic Acid Calcium Ferritin AST Alkaline Phosphatase Magnesium Lactate Dehydrogenase Total Creatine Kinase CK-MB (CK-2) C-Reactive Protein Total Protein Albumin Troponin T HDL Cholesterol Arterial Blood Glucose Urine WBC (Auto) Urine Creatinine Urine Total Protein Phenytoin Coronavirus (PCR) Crossmatch 06/20/20 06/21/20 06/21/20 23:59 06:25 12:01 WBC RBC Hgb Hct MCHC RDW Lymph % (Auto) [place] % (Auto) Eos % (Auto) Lymph # [place] # Lymph # (Auto) [place] # (Auto) Eos # (Auto) Seg Neutrophils % Seg Neuts % (Manual) Lymphocytes % (Manual) Seg Neutrophils # Seg Neutrophils # Man Lymphocytes # (Manual) Monocytes % (Manual) Eosinophils % (Manual) Monocytes # (Manual) Eosinophils # (Manual) D-Dimer Heparin Anti-Xa Level ABG pH POC ABG pCO2 POC ABG pO2 ABG pO2 ABG HCO3 ABG O2 Saturation ABG Base Excess ABG Hemoglobin ABG Oxyhemoglobin VBG pH ABG Sodium ABG Potassium ABG Glucose Oxyhemoglobin Sodium Potassium Chloride Carbon Dioxide BUN Creatinine Glucose POC Glucose 156 H 177 H 195 H Lactic Acid Calcium Ferritin AST Alkaline Phosphatase Magnesium Lactate Dehydrogenase Total Creatine Kinase CK-MB (CK-2) C-Reactive Protein Total Protein Albumin Troponin T HDL Cholesterol Arterial Blood Glucose Urine WBC (Auto) Urine Creatinine Urine Total Protein Phenytoin Coronavirus (PCR) Crossmatch 06/21/20 06/21/20 06/22/20 17:04 21:51 05:06 WBC RBC Hgb Hct MCHC RDW Lymph % (Auto) [place] % (Auto) Eos % (Auto) Lymph # [place] # Lymph # (Auto) [place] # (Auto) Eos # (Auto) Seg Neutrophils % Seg Neuts % (Manual) Lymphocytes % (Manual) Seg Neutrophils # Seg Neutrophils # Man Lymphocytes # (Manual) Monocytes % (Manual) Eosinophils % (Manual) Monocytes # (Manual) Eosinophils # (Manual) D-Dimer Heparin Anti-Xa Level ABG pH POC ABG pCO2 POC ABG pO2 ABG pO2 ABG HCO3 ABG O2 Saturation ABG Base Excess ABG Hemoglobin ABG Oxyhemoglobin VBG pH ABG Sodium ABG Potassium ABG Glucose Oxyhemoglobin Sodium Potassium Chloride Carbon Dioxide BUN Creatinine Glucose POC Glucose 156 H 154 H 167 H Lactic Acid Calcium Ferritin AST Alkaline Phosphatase Magnesium Lactate Dehydrogenase Total Creatine Kinase CK-MB (CK-2) C-Reactive Protein Total Protein Albumin Troponin T HDL Cholesterol Arterial Blood Glucose Urine WBC (Auto) Urine Creatinine Urine Total Protein Phenytoin Coronavirus (PCR) Crossmatch 06/22/20 06/22/20 06/22/20 11:20 15:27 16:58 WBC RBC Hgb Hct MCHC RDW Lymph % (Auto) [place] % (Auto) Eos % (Auto) Lymph # [place] # Lymph # (Auto) [place] # (Auto) Eos # (Auto) Seg Neutrophils % Seg Neuts % (Manual) Lymphocytes % (Manual) Seg Neutrophils # Seg Neutrophils # Man Lymphocytes # (Manual) Monocytes % (Manual) Eosinophils % (Manual) Monocytes # (Manual) Eosinophils # (Manual) D-Dimer Heparin Anti-Xa Level ABG pH 7.206 L POC ABG pCO2 79.9 H POC ABG pO2 ABG pO2 ABG HCO3 ABG O2 Saturation ABG Base Excess ABG Hemoglobin 8.3 L ABG Oxyhemoglobin VBG pH ABG Sodium ABG Potassium ABG Glucose Oxyhemoglobin Sodium Potassium Chloride Carbon Dioxide BUN Creatinine Glucose POC Glucose 181 H 230 H Lactic Acid Calcium Ferritin AST Alkaline Phosphatase Magnesium Lactate Dehydrogenase Total Creatine Kinase CK-MB (CK-2) C-Reactive Protein Total Protein Albumin Troponin T HDL Cholesterol Arterial Blood Glucose Urine WBC (Auto) Urine Creatinine Urine Total Protein Phenytoin Coronavirus (PCR) Crossmatch 06/22/20 06/23/20 06/23/20 22:26 05:49 05:49 WBC RBC 2.58 L Hgb 7.4 L Hct 23.2 L MCHC RDW 17.0 H Lymph % (Auto) [place] % (Auto) 11.2 H Eos % (Auto) Lymph # 1.0 L [place] # Lymph # (Auto) [place] # (Auto) Eos # (Auto) Seg Neutrophils % Seg Neuts % (Manual) Lymphocytes % (Manual) Seg Neutrophils # Seg Neutrophils # Man Lymphocytes # (Manual) Monocytes % (Manual) Eosinophils % (Manual) Monocytes # (Manual) Eosinophils # (Manual) D-Dimer Heparin Anti-Xa Level ABG pH POC ABG pCO2 POC ABG pO2 ABG pO2 ABG HCO3 ABG O2 Saturation ABG Base Excess ABG Hemoglobin ABG Oxyhemoglobin VBG pH ABG Sodium ABG Potassium ABG Glucose Oxyhemoglobin Sodium Potassium Chloride Carbon Dioxide BUN 68 H Creatinine 2.4 H Glucose 198 H POC Glucose 195 H Lactic Acid Calcium Ferritin AST Alkaline Phosphatase Magnesium Lactate Dehydrogenase Total Creatine Kinase CK-MB (CK-2) C-Reactive Protein Total Protein Albumin Troponin T HDL Cholesterol Arterial Blood Glucose Urine WBC (Auto) Urine Creatinine Urine Total Protein Phenytoin Coronavirus (PCR) Crossmatch 06/23/20 06/23/20 06/23/20 05:50 12:29 12:34 WBC RBC Hgb Hct MCHC RDW Lymph % (Auto) [place] % (Auto) Eos % (Auto) Lymph # [place] # Lymph # (Auto) [place] # (Auto) Eos # (Auto) Seg Neutrophils % Seg Neuts % (Manual) Lymphocytes % (Manual) Seg Neutrophils # Seg Neutrophils # Man Lymphocytes # (Manual) Monocytes % (Manual) Eosinophils % (Manual) Monocytes # (Manual) Eosinophils # (Manual) D-Dimer Heparin Anti-Xa Level ABG pH POC ABG pCO2 54.7 H POC ABG pO2 68.8 L ABG pO2 ABG HCO3 ABG O2 Saturation ABG Base Excess ABG Hemoglobin 9.8 L ABG Oxyhemoglobin 92.6 L VBG pH ABG Sodium ABG Potassium ABG Glucose Oxyhemoglobin Sodium Potassium Chloride Carbon Dioxide BUN Creatinine Glucose POC Glucose 202 H 218 H Lactic Acid Calcium Ferritin AST Alkaline Phosphatase Magnesium Lactate Dehydrogenase Total Creatine Kinase CK-MB (CK-2) C-Reactive Protein Total Protein Albumin Troponin T HDL Cholesterol Arterial Blood Glucose Urine WBC (Auto) Urine Creatinine Urine Total Protein Phenytoin Coronavirus (PCR) Crossmatch 06/23/20 06/23/20 06/24/20 16:02 22:22 01:06 WBC RBC Hgb Hct MCHC RDW Lymph % (Auto) [place] % (Auto) Eos % (Auto) Lymph # [place] # Lymph # (Auto) [place] # (Auto) Eos # (Auto) Seg Neutrophils % Seg Neuts % (Manual) Lymphocytes % (Manual) Seg Neutrophils # Seg Neutrophils # Man Lymphocytes # (Manual) Monocytes % (Manual) Eosinophils % (Manual) Monocytes # (Manual) Eosinophils # (Manual) D-Dimer Heparin Anti-Xa Level ABG pH POC ABG pCO2 POC ABG pO2 ABG pO2 ABG HCO3 ABG O2 Saturation ABG Base Excess ABG Hemoglobin ABG Oxyhemoglobin VBG pH ABG Sodium ABG Potassium ABG Glucose Oxyhemoglobin Sodium Potassium Chloride Carbon Dioxide BUN Creatinine Glucose POC Glucose 190 H 166 H 171 H Lactic Acid Calcium Ferritin AST Alkaline Phosphatase Magnesium Lactate Dehydrogenase Total Creatine Kinase CK-MB (CK-2) C-Reactive Protein Total Protein Albumin Troponin T HDL Cholesterol Arterial Blood Glucose Urine WBC (Auto) Urine Creatinine Urine Total Protein Phenytoin Coronavirus (PCR) Crossmatch 06/24/20 06/24/20 06/24/20 04:48 05:35 11:48 WBC RBC Hgb Hct MCHC RDW Lymph % (Auto) [place] % (Auto) Eos % (Auto) Lymph # [place] # Lymph # (Auto) [place] # (Auto) Eos # (Auto) Seg Neutrophils % Seg Neuts % (Manual) Lymphocytes % (Manual) Seg Neutrophils # Seg Neutrophils # Man Lymphocytes # (Manual) Monocytes % (Manual) Eosinophils % (Manual) Monocytes # (Manual) Eosinophils # (Manual) D-Dimer Heparin Anti-Xa Level ABG pH POC ABG pCO2 POC ABG pO2 ABG pO2 ABG HCO3 ABG O2 Saturation ABG Base Excess ABG Hemoglobin ABG Oxyhemoglobin VBG pH ABG Sodium ABG Potassium ABG Glucose Oxyhemoglobin Sodium Potassium Chloride Carbon Dioxide BUN 75 H Creatinine 2.6 H Glucose 179 H POC Glucose 172 H 153 H Lactic Acid Calcium Ferritin AST Alkaline Phosphatase Magnesium Lactate Dehydrogenase Total Creatine Kinase CK-MB (CK-2) C-Reactive Protein Total Protein Albumin Troponin T HDL Cholesterol Arterial Blood Glucose Urine WBC (Auto) Urine Creatinine Urine Total Protein Phenytoin Coronavirus (PCR) Crossmatch 06/24/20 06/24/20 06/25/20 16:38 21:52 12:00 WBC RBC Hgb Hct MCHC RDW Lymph % (Auto) [place] % (Auto) Eos % (Auto) Lymph # [place] # Lymph # (Auto) [place] # (Auto) Eos # (Auto) Seg Neutrophils % Seg Neuts % (Manual) Lymphocytes % (Manual) Seg Neutrophils # Seg Neutrophils # Man Lymphocytes # (Manual) Monocytes % (Manual) Eosinophils % (Manual) Monocytes # (Manual) Eosinophils # (Manual) D-Dimer Heparin Anti-Xa Level ABG pH POC ABG pCO2 POC ABG pO2 ABG pO2 ABG HCO3 ABG O2 Saturation ABG Base Excess ABG Hemoglobin ABG Oxyhemoglobin VBG pH ABG Sodium ABG Potassium ABG Glucose Oxyhemoglobin Sodium Potassium Chloride Carbon Dioxide BUN Creatinine Glucose POC Glucose 123 H 115 H 203 H Lactic Acid Calcium Ferritin AST Alkaline Phosphatase Magnesium Lactate Dehydrogenase Total Creatine Kinase CK-MB (CK-2) C-Reactive Protein Total Protein Albumin Troponin T HDL Cholesterol Arterial Blood Glucose Urine WBC (Auto) Urine Creatinine Urine Total Protein Phenytoin Coronavirus (PCR) Crossmatch 06/25/20 06/25/20 06/25/20 15:43 16:37 23:02 WBC RBC Hgb Hct MCHC RDW Lymph % (Auto) [place] % (Auto) Eos % (Auto) Lymph # [place] # Lymph # (Auto) [place] # (Auto) Eos # (Auto) Seg Neutrophils % Seg Neuts % (Manual) Lymphocytes % (Manual) Seg Neutrophils # Seg Neutrophils # Man Lymphocytes # (Manual) Monocytes % (Manual) Eosinophils % (Manual) Monocytes # (Manual) Eosinophils # (Manual) D-Dimer Heparin Anti-Xa Level ABG pH POC ABG pCO2 POC ABG pO2 ABG pO2 ABG HCO3 ABG O2 Saturation ABG Base Excess ABG Hemoglobin ABG Oxyhemoglobin VBG pH ABG Sodium ABG Potassium ABG Glucose Oxyhemoglobin Sodium Potassium Chloride Carbon Dioxide BUN 71 H Creatinine 1.8 H Glucose 170 H POC Glucose 191 H 126 H Lactic Acid Calcium 8.2 L Ferritin AST Alkaline Phosphatase Magnesium Lactate Dehydrogenase Total Creatine Kinase CK-MB (CK-2) C-Reactive Protein Total Protein Albumin Troponin T HDL Cholesterol Arterial Blood Glucose Urine WBC (Auto) Urine Creatinine Urine Total Protein Phenytoin Coronavirus (PCR) Crossmatch 06/26/20 06/26/20 06/26/20 06:34 06:34 09:27 WBC RBC 2.41 L Hgb 6.9 L Hct 21.5 L MCHC RDW 16.7 H Lymph % (Auto) 10.9 L [place] % (Auto) 9.6 H Eos % (Auto) Lymph # 0.7 L [place] # Lymph # (Auto) [place] # (Auto) Eos # (Auto) Seg Neutrophils % 75.4 H Seg Neuts % (Manual) Lymphocytes % (Manual) Seg Neutrophils # Seg Neutrophils # Man Lymphocytes # (Manual) Monocytes % (Manual) Eosinophils % (Manual) Monocytes # (Manual) Eosinophils # (Manual) D-Dimer Heparin Anti-Xa Level ABG pH POC ABG pCO2 POC ABG pO2 ABG pO2 ABG HCO3 ABG O2 Saturation ABG Base Excess ABG Hemoglobin ABG Oxyhemoglobin VBG pH ABG Sodium ABG Potassium ABG Glucose Oxyhemoglobin Sodium Potassium Chloride Carbon Dioxide BUN 77 H Creatinine 1.9 H Glucose 190 H POC Glucose Lactic Acid Calcium Ferritin AST Alkaline Phosphatase Magnesium Lactate Dehydrogenase Total Creatine Kinase CK-MB (CK-2) C-Reactive Protein Total Protein Albumin Troponin T HDL Cholesterol Arterial Blood Glucose Urine WBC (Auto) Urine Creatinine Urine Total Protein Phenytoin Coronavirus (PCR) Crossmatch See Detail 06/26/20 06/26/20 06/26/20 12:15 16:28 17:28 WBC RBC Hgb Hct MCHC RDW Lymph % (Auto) [place] % (Auto) Eos % (Auto) Lymph # [place] # Lymph # (Auto) [place] # (Auto) Eos # (Auto) Seg Neutrophils % Seg Neuts % (Manual) Lymphocytes % (Manual) Seg Neutrophils # Seg Neutrophils # Man Lymphocytes # (Manual) Monocytes % (Manual) Eosinophils % (Manual) Monocytes # (Manual) Eosinophils # (Manual) D-Dimer Heparin Anti-Xa Level ABG pH POC ABG pCO2 POC ABG pO2 ABG pO2 ABG HCO3 ABG O2 Saturation ABG Base Excess ABG Hemoglobin ABG Oxyhemoglobin VBG pH ABG Sodium ABG Potassium ABG Glucose Oxyhemoglobin Sodium Potassium Chloride Carbon Dioxide BUN Creatinine Glucose POC Glucose 187 H 149 H 189 H Lactic Acid Calcium Ferritin AST Alkaline Phosphatase Magnesium Lactate Dehydrogenase Total Creatine Kinase CK-MB (CK-2) C-Reactive Protein Total Protein Albumin Troponin T HDL Cholesterol Arterial Blood Glucose Urine WBC (Auto) Urine Creatinine Urine Total Protein Phenytoin Coronavirus (PCR) Crossmatch 06/26/20 06/26/20 06/26/20 18:30 18:30 18:30 WBC RBC 2.87 L Hgb 8.2 L Hct 25.9 L MCHC RDW 17.8 H Lymph % (Auto) [place] % (Auto) Eos % (Auto) Lymph # [place] # Lymph # (Auto) [place] # (Auto) Eos # (Auto) Seg Neutrophils % Seg Neuts % (Manual) 83.0 H Lymphocytes % (Manual) 8.0 L Seg Neutrophils # Seg Neutrophils # Man Lymphocytes # (Manual) 0.6 L Monocytes % (Manual) Eosinophils % (Manual) Monocytes # (Manual) Eosinophils # (Manual) D-Dimer Heparin Anti-Xa Level ABG pH POC ABG pCO2 POC ABG pO2 ABG pO2 ABG HCO3 ABG O2 Saturation ABG Base Excess ABG Hemoglobin ABG Oxyhemoglobin VBG pH ABG Sodium ABG Potassium ABG Glucose Oxyhemoglobin Sodium Potassium Chloride Carbon Dioxide BUN 80 H Creatinine 2.1 H Glucose 260 H POC Glucose Lactic Acid 4.30 H* Calcium 8.3 L Ferritin AST Alkaline Phosphatase Magnesium Lactate Dehydrogenase Total Creatine Kinase CK-MB (CK-2) C-Reactive Protein Total Protein Albumin Troponin T HDL Cholesterol Arterial Blood Glucose Urine WBC (Auto) Urine Creatinine Urine Total Protein Phenytoin Coronavirus (PCR) Crossmatch 06/26/20 06/27/20 06/27/20 18:50 01:00 04:29 WBC RBC Hgb Hct MCHC RDW Lymph % (Auto) [place] % (Auto) Eos % (Auto) Lymph # [place] # Lymph # (Auto) [place] # (Auto) Eos # (Auto) Seg Neutrophils % Seg Neuts % (Manual) Lymphocytes % (Manual) Seg Neutrophils # Seg Neutrophils # Man Lymphocytes # (Manual) Monocytes % (Manual) Eosinophils % (Manual) Monocytes # (Manual) Eosinophils # (Manual) D-Dimer Heparin Anti-Xa Level ABG pH 7.296 L POC ABG pCO2 POC ABG pO2 ABG pO2 116.5 H 200.5 H ABG HCO3 28.4 H ABG O2 Saturation 99.3 H ABG Base Excess 3.7 H ABG Hemoglobin 5.6 L ABG Oxyhemoglobin VBG pH ABG Sodium ABG Potassium ABG Glucose Oxyhemoglobin Sodium Potassium Chloride Carbon Dioxide BUN Creatinine Glucose POC Glucose 123 H Lactic Acid Calcium Ferritin AST Alkaline Phosphatase Magnesium Lactate Dehydrogenase Total Creatine Kinase CK-MB (CK-2) C-Reactive Protein Total Protein Albumin Troponin T HDL Cholesterol Arterial Blood Glucose Urine WBC (Auto) Urine Creatinine Urine Total Protein Phenytoin Coronavirus (PCR) Crossmatch 06/27/20 06/27/20 06/27/20 05:00 05:00 05:00 WBC RBC 2.75 L Hgb 7.9 L Hct 24.3 L MCHC RDW 17.1 H Lymph % (Auto) 8.5 L [place] % (Auto) 12.6 H Eos % (Auto) Lymph # 0.7 L [place] # 1.0 H Lymph # (Auto) [place] # (Auto) Eos # (Auto) Seg Neutrophils % 77.5 H Seg Neuts % (Manual) Lymphocytes % (Manual) Seg Neutrophils # Seg Neutrophils # Man Lymphocytes # (Manual) Monocytes % (Manual) Eosinophils % (Manual) Monocytes # (Manual) Eosinophils # (Manual) D-Dimer Heparin Anti-Xa Level ABG pH POC ABG pCO2 POC ABG pO2 ABG pO2 ABG HCO3 ABG O2 Saturation ABG Base Excess ABG Hemoglobin ABG Oxyhemoglobin VBG pH ABG Sodium ABG Potassium ABG Glucose Oxyhemoglobin Sodium Potassium Chloride Carbon Dioxide BUN 80 H Creatinine 2.0 H Glucose 129 H POC Glucose Lactic Acid 0.60 L Calcium 7.9 L Ferritin AST Alkaline Phosphatase Magnesium Lactate Dehydrogenase Total Creatine Kinase CK-MB (CK-2) C-Reactive Protein Total Protein Albumin Troponin T HDL Cholesterol Arterial Blood Glucose Urine WBC (Auto) Urine Creatinine Urine Total Protein Phenytoin Coronavirus (PCR) Crossmatch 06/27/20 06/27/20 06/27/20 05:23 13:46 17:25 WBC RBC Hgb Hct MCHC RDW Lymph % (Auto) [place] % (Auto) Eos % (Auto) Lymph # [place] # Lymph # (Auto) [place] # (Auto) Eos # (Auto) Seg Neutrophils % Seg Neuts % (Manual) Lymphocytes % (Manual) Seg Neutrophils # Seg Neutrophils # Man Lymphocytes # (Manual) Monocytes % (Manual) Eosinophils % (Manual) Monocytes # (Manual) Eosinophils # (Manual) D-Dimer Heparin Anti-Xa Level ABG pH POC ABG pCO2 POC ABG pO2 ABG pO2 ABG HCO3 ABG O2 Saturation ABG Base Excess ABG Hemoglobin ABG Oxyhemoglobin VBG pH ABG Sodium ABG Potassium ABG Glucose Oxyhemoglobin Sodium Potassium Chloride Carbon Dioxide BUN Creatinine Glucose POC Glucose 109 H 158 H 162 H Lactic Acid Calcium Ferritin AST Alkaline Phosphatase Magnesium Lactate Dehydrogenase Total Creatine Kinase CK-MB (CK-2) C-Reactive Protein Total Protein Albumin Troponin T HDL Cholesterol Arterial Blood Glucose Urine WBC (Auto) Urine Creatinine Urine Total Protein Phenytoin Coronavirus (PCR) Crossmatch 06/27/20 06/27/20 06/28/20 18:43 23:46 04:05 WBC RBC Hgb 7.7 L Hct 22.1 L MCHC RDW Lymph % (Auto) [place] % (Auto) Eos % (Auto) Lymph # [place] # Lymph # (Auto) [place] # (Auto) Eos # (Auto) Seg Neutrophils % Seg Neuts % (Manual) Lymphocytes % (Manual) Seg Neutrophils # Seg Neutrophils # Man Lymphocytes # (Manual) Monocytes % (Manual) Eosinophils % (Manual) Monocytes # (Manual) Eosinophils # (Manual) D-Dimer Heparin Anti-Xa Level ABG pH POC ABG pCO2 POC ABG pO2 ABG pO2 102.7 H ABG HCO3 28.7 H ABG O2 Saturation ABG Base Excess 3.7 H ABG Hemoglobin ABG Oxyhemoglobin VBG pH ABG Sodium ABG Potassium ABG Glucose Oxyhemoglobin Sodium Potassium Chloride Carbon Dioxide BUN Creatinine Glucose POC Glucose 142 H Lactic Acid Calcium Ferritin AST Alkaline Phosphatase Magnesium Lactate Dehydrogenase Total Creatine Kinase CK-MB (CK-2) C-Reactive Protein Total Protein Albumin Troponin T HDL Cholesterol Arterial Blood Glucose Urine WBC (Auto) Urine Creatinine Urine Total Protein Phenytoin Coronavirus (PCR) Crossmatch 06/28/20 06/28/20 06/28/20 09:47 09:47 12:02 WBC RBC 2.53 L Hgb 7.4 L Hct 22.2 L MCHC RDW 16.8 H Lymph % (Auto) [place] % (Auto) 13.5 H Eos % (Auto) Lymph # 1.1 L [place] # 1.0 H Lymph # (Auto) [place] # (Auto) Eos # (Auto) Seg Neutrophils % Seg Neuts % (Manual) Lymphocytes % (Manual) Seg Neutrophils # Seg Neutrophils # Man Lymphocytes # (Manual) Monocytes % (Manual) Eosinophils % (Manual) Monocytes # (Manual) Eosinophils # (Manual) D-Dimer Heparin Anti-Xa Level ABG pH POC ABG pCO2 POC ABG pO2 ABG pO2 ABG HCO3 ABG O2 Saturation ABG Base Excess ABG Hemoglobin ABG Oxyhemoglobin VBG pH ABG Sodium ABG Potassium ABG Glucose Oxyhemoglobin Sodium Potassium Chloride Carbon Dioxide BUN 80 H Creatinine 1.5 H Glucose 139 H POC Glucose 169 H Lactic Acid Calcium 7.9 L Ferritin AST Alkaline Phosphatase Magnesium Lactate Dehydrogenase Total Creatine Kinase CK-MB (CK-2) C-Reactive Protein Total Protein 5.0 L Albumin 2.1 L Troponin T HDL Cholesterol Arterial Blood Glucose Urine WBC (Auto) Urine Creatinine Urine Total Protein Phenytoin Coronavirus (PCR) Crossmatch 06/28/20 06/28/20 06/28/20 12:30 12:30 17:24 WBC RBC 2.38 L Hgb 7.3 L Hct 20.9 L MCHC 35 H RDW 16.7 H Lymph % (Auto) [place] % (Auto) Eos % (Auto) Lymph # [place] # Lymph # (Auto) [place] # (Auto) Eos # (Auto) Seg Neutrophils % Seg Neuts % (Manual) Lymphocytes % (Manual) Seg Neutrophils # Seg Neutrophils # Man Lymphocytes # (Manual) Monocytes % (Manual) Eosinophils % (Manual) Monocytes # (Manual) Eosinophils # (Manual) D-Dimer Heparin Anti-Xa Level ABG pH POC ABG pCO2 POC ABG pO2 ABG pO2 ABG HCO3 ABG O2 Saturation ABG Base Excess ABG Hemoglobin ABG Oxyhemoglobin VBG pH ABG Sodium ABG Potassium ABG Glucose Oxyhemoglobin Sodium Potassium Chloride Carbon Dioxide BUN 74 H Creatinine 1.5 H Glucose 143 H POC Glucose 173 H Lactic Acid Calcium 7.5 L Ferritin AST Alkaline Phosphatase Magnesium Lactate Dehydrogenase Total Creatine Kinase CK-MB (CK-2) C-Reactive Protein Total Protein Albumin Troponin T HDL Cholesterol Arterial Blood Glucose Urine WBC (Auto) Urine Creatinine Urine Total Protein Phenytoin Coronavirus (PCR) Crossmatch 06/29/20 06/29/20 06/29/20 00:02 03:54 04:38 WBC RBC 2.55 L Hgb 7.3 L Hct 22.4 L MCHC RDW 16.4 H Lymph % (Auto) 13.3 L [place] % (Auto) 12.5 H Eos % (Auto) Lymph # 1.1 L [place] # 1.0 H Lymph # (Auto) [place] # (Auto) Eos # (Auto) Seg Neutrophils % Seg Neuts % (Manual) Lymphocytes % (Manual) Seg Neutrophils # Seg Neutrophils # Man Lymphocytes # (Manual) Monocytes % (Manual) Eosinophils % (Manual) Monocytes # (Manual) Eosinophils # (Manual) D-Dimer Heparin Anti-Xa Level ABG pH POC ABG pCO2 POC ABG pO2 ABG pO2 ABG HCO3 26.9 H ABG O2 Saturation ABG Base Excess ABG Hemoglobin 6.9 L ABG Oxyhemoglobin VBG pH ABG Sodium ABG Potassium ABG Glucose Oxyhemoglobin Sodium Potassium Chloride Carbon Dioxide BUN Creatinine Glucose POC Glucose 142 H Lactic Acid Calcium Ferritin AST Alkaline Phosphatase Magnesium Lactate Dehydrogenase Total Creatine Kinase CK-MB (CK-2) C-Reactive Protein Total Protein Albumin Troponin T HDL Cholesterol Arterial Blood Glucose Urine WBC (Auto) Urine Creatinine Urine Total Protein Phenytoin Coronavirus (PCR) Crossmatch 06/29/20 06/29/20 06/29/20 04:38 05:38 12:25 WBC RBC Hgb Hct MCHC RDW Lymph % (Auto) [place] % (Auto) Eos % (Auto) Lymph # [place] # Lymph # (Auto) [place] # (Auto) Eos # (Auto) Seg Neutrophils % Seg Neuts % (Manual) Lymphocytes % (Manual) Seg Neutrophils # Seg Neutrophils # Man Lymphocytes # (Manual) Monocytes % (Manual) Eosinophils % (Manual) Monocytes # (Manual) Eosinophils # (Manual) D-Dimer Heparin Anti-Xa Level ABG pH POC ABG pCO2 POC ABG pO2 ABG pO2 ABG HCO3 ABG O2 Saturation ABG Base Excess ABG Hemoglobin ABG Oxyhemoglobin VBG pH ABG Sodium ABG Potassium ABG Glucose Oxyhemoglobin Sodium Potassium Chloride 107.8 H Carbon Dioxide BUN 72 H Creatinine 1.4 H Glucose 127 H POC Glucose 122 H 138 H Lactic Acid Calcium 7.4 L Ferritin AST Alkaline Phosphatase Magnesium Lactate Dehydrogenase Total Creatine Kinase CK-MB (CK-2) C-Reactive Protein Total Protein Albumin Troponin T HDL Cholesterol Arterial Blood Glucose Urine WBC (Auto) Urine Creatinine Urine Total Protein Phenytoin Coronavirus (PCR) Crossmatch 06/29/20 06/29/20 06/29/20 14:45 14:45 14:45 WBC RBC Hgb Hct MCHC RDW Lymph % (Auto) [place] % (Auto) Eos % (Auto) Lymph # [place] # Lymph # (Auto) [place] # (Auto) Eos # (Auto) Seg Neutrophils % Seg Neuts % (Manual) Lymphocytes % (Manual) Seg Neutrophils # Seg Neutrophils # Man Lymphocytes # (Manual) Monocytes % (Manual) Eosinophils % (Manual) Monocytes # (Manual) Eosinophils # (Manual) D-Dimer 2310.15 H Heparin Anti-Xa Level ABG pH POC ABG pCO2 POC ABG pO2 ABG pO2 ABG HCO3 ABG O2 Saturation ABG Base Excess ABG Hemoglobin ABG Oxyhemoglobin VBG pH ABG Sodium ABG Potassium ABG Glucose Oxyhemoglobin Sodium Potassium Chloride Carbon Dioxide BUN Creatinine Glucose POC Glucose Lactic Acid Calcium Ferritin 223.6 H AST Alkaline Phosphatase Magnesium Lactate Dehydrogenase 367 H Total Creatine Kinase CK-MB (CK-2) C-Reactive Protein 3.60 H Total Protein Albumin Troponin T HDL Cholesterol Arterial Blood Glucose Urine WBC (Auto) Urine Creatinine Urine Total Protein Phenytoin Coronavirus (PCR) Crossmatch 06/29/20 06/29/20 06/29/20 18:27 23:35 Unknown WBC RBC Hgb Hct MCHC RDW Lymph % (Auto) [place] % (Auto) Eos % (Auto) Lymph # [place] # Lymph # (Auto) [place] # (Auto) Eos # (Auto) Seg Neutrophils % Seg Neuts % (Manual) Lymphocytes % (Manual) Seg Neutrophils # Seg Neutrophils # Man Lymphocytes # (Manual) Monocytes % (Manual) Eosinophils % (Manual) Monocytes # (Manual) Eosinophils # (Manual) D-Dimer Heparin Anti-Xa Level ABG pH POC ABG pCO2 POC ABG pO2 ABG pO2 ABG HCO3 ABG O2 Saturation ABG Base Excess ABG Hemoglobin ABG Oxyhemoglobin VBG pH ABG Sodium ABG Potassium ABG Glucose Oxyhemoglobin Sodium Potassium Chloride Carbon Dioxide BUN Creatinine Glucose POC Glucose 112 H 140 H Lactic Acid Calcium Ferritin AST Alkaline Phosphatase Magnesium Lactate Dehydrogenase Total Creatine Kinase CK-MB (CK-2) C-Reactive Protein Total Protein Albumin Troponin T HDL Cholesterol Arterial Blood Glucose Urine WBC (Auto) Urine Creatinine Urine Total Protein Phenytoin Coronavirus (PCR) Positive A Crossmatch 06/30/20 06/30/20 06/30/20 04:10 04:10 06:09 WBC RBC 2.44 L Hgb 7.1 L Hct 21.5 L MCHC RDW 16.6 H Lymph % (Auto) 11.0 L [place] % (Auto) 10.8 H Eos % (Auto) Lymph # 0.9 L [place] # 0.9 H Lymph # (Auto) [place] # (Auto) Eos # (Auto) Seg Neutrophils % 73.7 H Seg Neuts % (Manual) Lymphocytes % (Manual) Seg Neutrophils # Seg Neutrophils # Man Lymphocytes # (Manual) Monocytes % (Manual) Eosinophils % (Manual) Monocytes # (Manual) Eosinophils # (Manual) D-Dimer Heparin Anti-Xa Level ABG pH POC ABG pCO2 POC ABG pO2 ABG pO2 ABG HCO3 ABG O2 Saturation ABG Base Excess ABG Hemoglobin ABG Oxyhemoglobin VBG pH ABG Sodium ABG Potassium ABG Glucose Oxyhemoglobin Sodium Potassium Chloride 109.1 H Carbon Dioxide BUN 74 H Creatinine 1.3 H Glucose 191 H POC Glucose 187 H Lactic Acid Calcium 7.8 L Ferritin AST Alkaline Phosphatase Magnesium Lactate Dehydrogenase Total Creatine Kinase CK-MB (CK-2) C-Reactive Protein Total Protein Albumin Troponin T HDL Cholesterol Arterial Blood Glucose Urine WBC (Auto) Urine Creatinine Urine Total Protein Phenytoin Coronavirus (PCR) Crossmatch 06/30/20 06/30/20 06/30/20 12:04 17:43 23:41 WBC RBC Hgb Hct MCHC RDW Lymph % (Auto) [place] % (Auto) Eos % (Auto) Lymph # [place] # Lymph # (Auto) [place] # (Auto) Eos # (Auto) Seg Neutrophils % Seg Neuts % (Manual) Lymphocytes % (Manual) Seg Neutrophils # Seg Neutrophils # Man Lymphocytes # (Manual) Monocytes % (Manual) Eosinophils % (Manual) Monocytes # (Manual) Eosinophils # (Manual) D-Dimer Heparin Anti-Xa Level ABG pH POC ABG pCO2 POC ABG pO2 ABG pO2 ABG HCO3 ABG O2 Saturation ABG Base Excess ABG Hemoglobin ABG Oxyhemoglobin VBG pH ABG Sodium ABG Potassium ABG Glucose Oxyhemoglobin Sodium Potassium Chloride Carbon Dioxide BUN Creatinine Glucose POC Glucose 112 H 177 H 143 H Lactic Acid Calcium Ferritin AST Alkaline Phosphatase Magnesium Lactate Dehydrogenase Total Creatine Kinase CK-MB (CK-2) C-Reactive Protein Total Protein Albumin Troponin T HDL Cholesterol Arterial Blood Glucose Urine WBC (Auto) Urine Creatinine Urine Total Protein Phenytoin Coronavirus (PCR) Crossmatch 07/01/20 07/01/20 07/01/20 05:02 05:52 06:01 WBC 12.6 H RBC 2.95 L Hgb 8.2 L Hct 26.0 L MCHC RDW 16.9 H Lymph % (Auto) [place] % (Auto) Eos % (Auto) Lymph # [place] # Lymph # (Auto) [place] # (Auto) Eos # (Auto) Seg Neutrophils % Seg Neuts % (Manual) Lymphocytes % (Manual) Seg Neutrophils # Seg Neutrophils # Man 8.6 H Lymphocytes # (Manual) Monocytes % (Manual) Eosinophils % (Manual) 5.0 H Monocytes # (Manual) Eosinophils # (Manual) 0.6 H D-Dimer Heparin Anti-Xa Level ABG pH POC ABG pCO2 POC ABG pO2 ABG pO2 ABG HCO3 ABG O2 Saturation ABG Base Excess ABG Hemoglobin 8.2 L ABG Oxyhemoglobin VBG pH ABG Sodium ABG Potassium ABG Glucose Oxyhemoglobin Sodium Potassium Chloride Carbon Dioxide BUN Creatinine Glucose POC Glucose 129 H Lactic Acid Calcium Ferritin AST Alkaline Phosphatase Magnesium Lactate Dehydrogenase Total Creatine Kinase CK-MB (CK-2) C-Reactive Protein Total Protein Albumin Troponin T HDL Cholesterol Arterial Blood Glucose Urine WBC (Auto) Urine Creatinine Urine Total Protein Phenytoin Coronavirus (PCR) Crossmatch 07/01/20 07/01/20 07/01/20 06:01 06:01 06:08 WBC RBC Hgb Hct MCHC RDW Lymph % (Auto) [place] % (Auto) Eos % (Auto) Lymph # [place] # Lymph # (Auto) [place] # (Auto) Eos # (Auto) Seg Neutrophils % Seg Neuts % (Manual) Lymphocytes % (Manual) Seg Neutrophils # Seg Neutrophils # Man Lymphocytes # (Manual) Monocytes % (Manual) Eosinophils % (Manual) Monocytes # (Manual) Eosinophils # (Manual) D-Dimer Heparin Anti-Xa Level ABG pH POC ABG pCO2 POC ABG pO2 ABG pO2 ABG HCO3 ABG O2 Saturation ABG Base Excess ABG Hemoglobin ABG Oxyhemoglobin VBG pH ABG Sodium ABG Potassium ABG Glucose Oxyhemoglobin Sodium 147 H Potassium Chloride 108.0 H Carbon Dioxide BUN 71 H Creatinine 1.3 H Glucose 193 H POC Glucose 192 H Lactic Acid Calcium 8.1 L Ferritin AST Alkaline Phosphatase Magnesium Lactate Dehydrogenase Total Creatine Kinase 300 H CK-MB (CK-2) C-Reactive Protein Total Protein Albumin Troponin T 0.067 H HDL Cholesterol 61 H Arterial Blood Glucose Urine WBC (Auto) Urine Creatinine Urine Total Protein Phenytoin Coronavirus (PCR) Crossmatch 07/01/20 07/01/20 07/02/20 12:23 17:40 00:18 WBC RBC Hgb Hct MCHC RDW Lymph % (Auto) [place] % (Auto) Eos % (Auto) Lymph # [place] # Lymph # (Auto) [place] # (Auto) Eos # (Auto) Seg Neutrophils % Seg Neuts % (Manual) Lymphocytes % (Manual) Seg Neutrophils # Seg Neutrophils # Man Lymphocytes # (Manual) Monocytes % (Manual) Eosinophils % (Manual) Monocytes # (Manual) Eosinophils # (Manual) D-Dimer Heparin Anti-Xa Level ABG pH POC ABG pCO2 POC ABG pO2 ABG pO2 ABG HCO3 ABG O2 Saturation ABG Base Excess ABG Hemoglobin ABG Oxyhemoglobin VBG pH ABG Sodium ABG Potassium ABG Glucose Oxyhemoglobin Sodium Potassium Chloride Carbon Dioxide BUN Creatinine Glucose POC Glucose 111 H 135 H 145 H Lactic Acid Calcium Ferritin AST Alkaline Phosphatase Magnesium Lactate Dehydrogenase Total Creatine Kinase CK-MB (CK-2) C-Reactive Protein Total Protein Albumin Troponin T HDL Cholesterol Arterial Blood Glucose Urine WBC (Auto) Urine Creatinine Urine Total Protein Phenytoin Coronavirus (PCR) Crossmatch 07/02/20 07/02/20 07/02/20 04:11 04:23 05:54 WBC RBC Hgb Hct MCHC RDW Lymph % (Auto) [place] % (Auto) Eos % (Auto) Lymph # [place] # Lymph # (Auto) [place] # (Auto) Eos # (Auto) Seg Neutrophils % Seg Neuts % (Manual) Lymphocytes % (Manual) Seg Neutrophils # Seg Neutrophils # Man Lymphocytes # (Manual) Monocytes % (Manual) Eosinophils % (Manual) Monocytes # (Manual) Eosinophils # (Manual) D-Dimer Heparin Anti-Xa Level ABG pH POC ABG pCO2 POC ABG pO2 ABG pO2 ABG HCO3 ABG O2 Saturation ABG Base Excess ABG Hemoglobin 5.4 L ABG Oxyhemoglobin VBG pH ABG Sodium ABG Potassium ABG Glucose Oxyhemoglobin Sodium Potassium Chloride 108.6 H Carbon Dioxide BUN 72 H Creatinine Glucose 112 H POC Glucose 137 H Lactic Acid Calcium 7.8 L Ferritin AST Alkaline Phosphatase Magnesium Lactate Dehydrogenase Total Creatine Kinase CK-MB (CK-2) C-Reactive Protein Total Protein Albumin Troponin T HDL Cholesterol Arterial Blood Glucose Urine WBC (Auto) Urine Creatinine Urine Total Protein Phenytoin Coronavirus (PCR) Crossmatch 07/02/20 07/02/20 07/02/20 11:38 18:04 23:59 WBC RBC Hgb Hct MCHC RDW Lymph % (Auto) [place] % (Auto) Eos % (Auto) Lymph # [place] # Lymph # (Auto) [place] # (Auto) Eos # (Auto) Seg Neutrophils % Seg Neuts % (Manual) Lymphocytes % (Manual) Seg Neutrophils # Seg Neutrophils # Man Lymphocytes # (Manual) Monocytes % (Manual) Eosinophils % (Manual) Monocytes # (Manual) Eosinophils # (Manual) D-Dimer Heparin Anti-Xa Level ABG pH POC ABG pCO2 POC ABG pO2 ABG pO2 ABG HCO3 ABG O2 Saturation ABG Base Excess ABG Hemoglobin ABG Oxyhemoglobin VBG pH ABG Sodium ABG Potassium ABG Glucose Oxyhemoglobin Sodium Potassium Chloride Carbon Dioxide BUN Creatinine Glucose POC Glucose 128 H 135 H 156 H Lactic Acid Calcium Ferritin AST Alkaline Phosphatase Magnesium Lactate Dehydrogenase Total Creatine Kinase CK-MB (CK-2) C-Reactive Protein Total Protein Albumin Troponin T HDL Cholesterol Arterial Blood Glucose Urine WBC (Auto) Urine Creatinine Urine Total Protein Phenytoin Coronavirus (PCR) Crossmatch 07/03/20 07/03/20 07/03/20 03:49 06:00 11:31 WBC RBC Hgb Hct MCHC RDW Lymph % (Auto) [place] % (Auto) Eos % (Auto) Lymph # [place] # Lymph # (Auto) [place] # (Auto) Eos # (Auto) Seg Neutrophils % Seg Neuts % (Manual) Lymphocytes % (Manual) Seg Neutrophils # Seg Neutrophils # Man Lymphocytes # (Manual) Monocytes % (Manual) Eosinophils % (Manual) Monocytes # (Manual) Eosinophils # (Manual) D-Dimer Heparin Anti-Xa Level ABG pH POC ABG pCO2 POC ABG pO2 ABG pO2 121.0 H ABG HCO3 ABG O2 Saturation ABG Base Excess ABG Hemoglobin 8.5 L ABG Oxyhemoglobin VBG pH ABG Sodium ABG Potassium ABG Glucose Oxyhemoglobin Sodium Potassium Chloride Carbon Dioxide BUN Creatinine Glucose POC Glucose 135 H 141 H Lactic Acid Calcium Ferritin AST Alkaline Phosphatase Magnesium Lactate Dehydrogenase Total Creatine Kinase CK-MB (CK-2) C-Reactive Protein Total Protein Albumin Troponin T HDL Cholesterol Arterial Blood Glucose Urine WBC (Auto) Urine Creatinine Urine Total Protein Phenytoin Coronavirus (PCR) Crossmatch 07/03/20 07/03/20 07/03/20 16:00 16:07 17:40 WBC RBC Hgb Hct MCHC RDW Lymph % (Auto) [place] % (Auto) Eos % (Auto) Lymph # [place] # Lymph # (Auto) [place] # (Auto) Eos # (Auto) Seg Neutrophils % Seg Neuts % (Manual) Lymphocytes % (Manual) Seg Neutrophils # Seg Neutrophils # Man Lymphocytes # (Manual) Monocytes % (Manual) Eosinophils % (Manual) Monocytes # (Manual) Eosinophils # (Manual) D-Dimer Heparin Anti-Xa Level ABG pH 7.271 L POC ABG pCO2 POC ABG pO2 ABG pO2 126.9 H ABG HCO3 ABG O2 Saturation ABG Base Excess ABG Hemoglobin 8.2 L 8.1 L ABG Oxyhemoglobin VBG pH ABG Sodium 130.3 L ABG Potassium 4.9 H ABG Glucose 163 H Oxyhemoglobin Sodium Potassium Chloride Carbon Dioxide BUN Creatinine Glucose POC Glucose 120 H Lactic Acid Calcium Ferritin AST Alkaline Phosphatase Magnesium Lactate Dehydrogenase Total Creatine Kinase CK-MB (CK-2) C-Reactive Protein Total Protein Albumin Troponin T HDL Cholesterol Arterial Blood Glucose 163 H Urine WBC (Auto) Urine Creatinine Urine Total Protein Phenytoin Coronavirus (PCR) Crossmatch 07/04/20 07/04/20 07/04/20 05:49 11:54 18:00 WBC RBC Hgb Hct MCHC RDW Lymph % (Auto) [place] % (Auto) Eos % (Auto) Lymph # [place] # Lymph # (Auto) [place] # (Auto) Eos # (Auto) Seg Neutrophils % Seg Neuts % (Manual) Lymphocytes % (Manual) Seg Neutrophils # Seg Neutrophils # Man Lymphocytes # (Manual) Monocytes % (Manual) Eosinophils % (Manual) Monocytes # (Manual) Eosinophils # (Manual) D-Dimer Heparin Anti-Xa Level ABG pH POC ABG pCO2 POC ABG pO2 ABG pO2 ABG HCO3 ABG O2 Saturation ABG Base Excess ABG Hemoglobin ABG Oxyhemoglobin VBG pH ABG Sodium ABG Potassium ABG Glucose Oxyhemoglobin Sodium Potassium Chloride Carbon Dioxide BUN Creatinine Glucose POC Glucose 128 H 168 H 133 H Lactic Acid Calcium Ferritin AST Alkaline Phosphatase Magnesium Lactate Dehydrogenase Total Creatine Kinase CK-MB (CK-2) C-Reactive Protein Total Protein Albumin Troponin T HDL Cholesterol Arterial Blood Glucose Urine WBC (Auto) Urine Creatinine Urine Total Protein Phenytoin Coronavirus (PCR) Crossmatch 07/05/20 07/05/20 07/05/20 00:07 01:12 02:30 WBC RBC 2.35 L Hgb 6.9 L Hct 21.1 L MCHC RDW 16.8 H Lymph % (Auto) [place] % (Auto) Eos % (Auto) Lymph # [place] # Lymph # (Auto) [place] # (Auto) Eos # (Auto) Seg Neutrophils % Seg Neuts % (Manual) 74.0 H Lymphocytes % (Manual) 12.0 L Seg Neutrophils # Seg Neutrophils # Man 8.0 H Lymphocytes # (Manual) Monocytes % (Manual) 9.0 H Eosinophils % (Manual) Monocytes # (Manual) 1.0 H Eosinophils # (Manual) D-Dimer Heparin Anti-Xa Level ABG pH POC ABG pCO2 POC ABG pO2 ABG pO2 ABG HCO3 ABG O2 Saturation ABG Base Excess ABG Hemoglobin ABG Oxyhemoglobin VBG pH ABG Sodium ABG Potassium ABG Glucose Oxyhemoglobin Sodium Potassium Chloride Carbon Dioxide BUN Creatinine Glucose POC Glucose 121 H Lactic Acid Calcium Ferritin AST Alkaline Phosphatase Magnesium Lactate Dehydrogenase Total Creatine Kinase CK-MB (CK-2) C-Reactive Protein Total Protein Albumin Troponin T HDL Cholesterol Arterial Blood Glucose Urine WBC (Auto) Urine Creatinine Urine Total Protein Phenytoin Coronavirus (PCR) Crossmatch See Detail 07/05/20 07/05/20 07/05/20 12:09 13:05 18:04 WBC RBC Hgb Hct MCHC RDW Lymph % (Auto) [place] % (Auto) Eos % (Auto) Lymph # [place] # Lymph # (Auto) [place] # (Auto) Eos # (Auto) Seg Neutrophils % Seg Neuts % (Manual) Lymphocytes % (Manual) Seg Neutrophils # Seg Neutrophils # Man Lymphocytes # (Manual) Monocytes % (Manual) Eosinophils % (Manual) Monocytes # (Manual) Eosinophils # (Manual) D-Dimer Heparin Anti-Xa Level ABG pH 7.32 L POC ABG pCO2 POC ABG pO2 ABG pO2 78.3 L ABG HCO3 ABG O2 Saturation ABG Base Excess -2.6 L ABG Hemoglobin 7.3 L ABG Oxyhemoglobin VBG pH ABG Sodium ABG Potassium ABG Glucose Oxyhemoglobin Sodium Potassium Chloride Carbon Dioxide BUN Creatinine Glucose POC Glucose 132 H 160 H Lactic Acid Calcium Ferritin AST Alkaline Phosphatase Magnesium Lactate Dehydrogenase Total Creatine Kinase CK-MB (CK-2) C-Reactive Protein Total Protein Albumin Troponin T HDL Cholesterol Arterial Blood Glucose Urine WBC (Auto) Urine Creatinine Urine Total Protein Phenytoin Coronavirus (PCR) Crossmatch 07/05/20 07/05/20 07/05/20 23:13 23:13 23:43 WBC RBC 2.57 L Hgb 7.7 L Hct 23.0 L MCHC RDW 16.9 H Lymph % (Auto) [place] % (Auto) Eos % (Auto) Lymph # [place] # Lymph # (Auto) [place] # (Auto) Eos # (Auto) Seg Neutrophils % Seg Neuts % (Manual) Lymphocytes % (Manual) Seg Neutrophils # Seg Neutrophils # Man Lymphocytes # (Manual) Monocytes % (Manual) Eosinophils % (Manual) Monocytes # (Manual) Eosinophils # (Manual) D-Dimer Heparin Anti-Xa Level ABG pH POC ABG pCO2 POC ABG pO2 ABG pO2 ABG HCO3 ABG O2 Saturation ABG Base Excess ABG Hemoglobin ABG Oxyhemoglobin VBG pH ABG Sodium ABG Potassium ABG Glucose Oxyhemoglobin Sodium Potassium Chloride Carbon Dioxide 20 L BUN 80 H Creatinine 2.4 H D Glucose 124 H POC Glucose 121 H Lactic Acid Calcium 7.6 L Ferritin AST Alkaline Phosphatase Magnesium Lactate Dehydrogenase Total Creatine Kinase CK-MB (CK-2) C-Reactive Protein Total Protein Albumin Troponin T HDL Cholesterol Arterial Blood Glucose Urine WBC (Auto) Urine Creatinine Urine Total Protein Phenytoin Coronavirus (PCR) Crossmatch 07/06/20 07/06/20 07/06/20 13:20 14:48 17:28 WBC RBC Hgb Hct MCHC RDW Lymph % (Auto) [place] % (Auto) Eos % (Auto) Lymph # [place] # Lymph # (Auto) [place] # (Auto) Eos # (Auto) Seg Neutrophils % Seg Neuts % (Manual) Lymphocytes % (Manual) Seg Neutrophils # Seg Neutrophils # Man Lymphocytes # (Manual) Monocytes % (Manual) Eosinophils % (Manual) Monocytes # (Manual) Eosinophils # (Manual) D-Dimer Heparin Anti-Xa Level ABG pH POC ABG pCO2 POC ABG pO2 ABG pO2 ABG HCO3 ABG O2 Saturation ABG Base Excess ABG Hemoglobin ABG Oxyhemoglobin VBG pH ABG Sodium ABG Potassium ABG Glucose Oxyhemoglobin Sodium 136 L Potassium 5.5 H Chloride Carbon Dioxide 19 L BUN 82 H Creatinine 2.5 H Glucose 113 H POC Glucose 133 H Lactic Acid Calcium 7.7 L Ferritin AST Alkaline Phosphatase Magnesium Lactate Dehydrogenase Total Creatine Kinase CK-MB (CK-2) C-Reactive Protein Total Protein Albumin Troponin T HDL Cholesterol Arterial Blood Glucose Urine WBC (Auto) Urine Creatinine 33.3 H Urine Total Protein Phenytoin Coronavirus (PCR) Crossmatch 07/07/20 07/07/20 07/07/20 00:12 04:15 04:15 WBC RBC 2.28 L Hgb 6.8 L Hct 20.7 L MCHC RDW 16.8 H Lymph % (Auto) [place] % (Auto) Eos % (Auto) Lymph # [place] # Lymph # (Auto) [place] # (Auto) Eos # (Auto) Seg Neutrophils % Seg Neuts % (Manual) Lymphocytes % (Manual) 13.0 L Seg Neutrophils # Seg Neutrophils # Man Lymphocytes # (Manual) 1.0 L Monocytes % (Manual) 11.0 H Eosinophils % (Manual) Monocytes # (Manual) 0.9 H Eosinophils # (Manual) D-Dimer Heparin Anti-Xa Level ABG pH POC ABG pCO2 POC ABG pO2 ABG pO2 ABG HCO3 ABG O2 Saturation ABG Base Excess ABG Hemoglobin ABG Oxyhemoglobin VBG pH ABG Sodium ABG Potassium ABG Glucose Oxyhemoglobin Sodium Potassium Chloride Carbon Dioxide BUN Creatinine Glucose POC Glucose 154 H Lactic Acid Calcium Ferritin AST Alkaline Phosphatase Magnesium 2.50 H Lactate Dehydrogenase Total Creatine Kinase CK-MB (CK-2) C-Reactive Protein Total Protein Albumin Troponin T HDL Cholesterol Arterial Blood Glucose Urine WBC (Auto) Urine Creatinine Urine Total Protein Phenytoin Coronavirus (PCR) Crossmatch 07/07/20 07/07/20 07/07/20 05:31 12:31 13:22 WBC RBC Hgb Hct MCHC RDW Lymph % (Auto) [place] % (Auto) Eos % (Auto) Lymph # [place] # Lymph # (Auto) [place] # (Auto) Eos # (Auto) Seg Neutrophils % Seg Neuts % (Manual) Lymphocytes % (Manual) Seg Neutrophils # Seg Neutrophils # Man Lymphocytes # (Manual) Monocytes % (Manual) Eosinophils % (Manual) Monocytes # (Manual) Eosinophils # (Manual) D-Dimer Heparin Anti-Xa Level ABG pH POC ABG pCO2 POC ABG pO2 ABG pO2 ABG HCO3 ABG O2 Saturation ABG Base Excess ABG Hemoglobin ABG Oxyhemoglobin VBG pH ABG Sodium ABG Potassium ABG Glucose Oxyhemoglobin Sodium Potassium 5.6 H Chloride Carbon Dioxide BUN 86 H Creatinine 2.9 H Glucose 127 H POC Glucose 135 H 131 H Lactic Acid Calcium 8.1 L Ferritin AST Alkaline Phosphatase Magnesium Lactate Dehydrogenase Total Creatine Kinase CK-MB (CK-2) C-Reactive Protein Total Protein Albumin Troponin T HDL Cholesterol Arterial Blood Glucose Urine WBC (Auto) Urine Creatinine Urine Total Protein Phenytoin Coronavirus (PCR) Crossmatch 07/07/20 07/07/20 07/08/20 17:55 23:33 04:14 WBC RBC 3.28 L Hgb 9.7 L Hct 28.9 L D MCHC RDW 16.4 H Lymph % (Auto) 10.3 L [place] % (Auto) 10.0 H Eos % (Auto) Lymph # [place] # Lymph # (Auto) 1.1 L [place] # (Auto) 1.1 H Eos # (Auto) Seg Neutrophils % 77.2 H Seg Neuts % (Manual) Lymphocytes % (Manual) Seg Neutrophils # 8.2 H Seg Neutrophils # Man Lymphocytes # (Manual) Monocytes % (Manual) Eosinophils % (Manual) Monocytes # (Manual) Eosinophils # (Manual) D-Dimer Heparin Anti-Xa Level ABG pH POC ABG pCO2 POC ABG pO2 ABG pO2 ABG HCO3 ABG O2 Saturation ABG Base Excess ABG Hemoglobin ABG Oxyhemoglobin VBG pH ABG Sodium ABG Potassium ABG Glucose Oxyhemoglobin Sodium Potassium Chloride Carbon Dioxide BUN Creatinine Glucose POC Glucose 136 H 159 H Lactic Acid Calcium Ferritin AST Alkaline Phosphatase Magnesium Lactate Dehydrogenase Total Creatine Kinase CK-MB (CK-2) C-Reactive Protein Total Protein Albumin Troponin T HDL Cholesterol Arterial Blood Glucose Urine WBC (Auto) Urine Creatinine Urine Total Protein Phenytoin Coronavirus (PCR) Crossmatch 07/08/20 07/08/20 07/08/20 04:14 12:10 18:10 WBC RBC Hgb Hct MCHC RDW Lymph % (Auto) [place] % (Auto) Eos % (Auto) Lymph # [place] # Lymph # (Auto) [place] # (Auto) Eos # (Auto) Seg Neutrophils % Seg Neuts % (Manual) Lymphocytes % (Manual) Seg Neutrophils # Seg Neutrophils # Man Lymphocytes # (Manual) Monocytes % (Manual) Eosinophils % (Manual) Monocytes # (Manual) Eosinophils # (Manual) D-Dimer Heparin Anti-Xa Level ABG pH POC ABG pCO2 POC ABG pO2 ABG pO2 ABG HCO3 ABG O2 Saturation ABG Base Excess ABG Hemoglobin ABG Oxyhemoglobin VBG pH ABG Sodium ABG Potassium ABG Glucose Oxyhemoglobin Sodium 136 L Potassium Chloride Carbon Dioxide BUN 84 H Creatinine 2.8 H Glucose 109 H POC Glucose 108 H 125 H Lactic Acid Calcium 8.1 L Ferritin AST Alkaline Phosphatase Magnesium 2.50 H Lactate Dehydrogenase Total Creatine Kinase CK-MB (CK-2) C-Reactive Protein Total Protein Albumin Troponin T HDL Cholesterol Arterial Blood Glucose Urine WBC (Auto) Urine Creatinine Urine Total Protein Phenytoin Coronavirus (PCR) Crossmatch 07/08/20 07/09/20 07/09/20 23:50 05:39 11:57 WBC RBC Hgb Hct MCHC RDW Lymph % (Auto) [place] % (Auto) Eos % (Auto) Lymph # [place] # Lymph # (Auto) [place] # (Auto) Eos # (Auto) Seg Neutrophils % Seg Neuts % (Manual) Lymphocytes % (Manual) Seg Neutrophils # Seg Neutrophils # Man Lymphocytes # (Manual) Monocytes % (Manual) Eosinophils % (Manual) Monocytes # (Manual) Eosinophils # (Manual) D-Dimer Heparin Anti-Xa Level ABG pH POC ABG pCO2 POC ABG pO2 ABG pO2 ABG HCO3 ABG O2 Saturation ABG Base Excess ABG Hemoglobin ABG Oxyhemoglobin VBG pH ABG Sodium ABG Potassium ABG Glucose Oxyhemoglobin Sodium Potassium Chloride Carbon Dioxide BUN Creatinine Glucose POC Glucose 141 H 121 H 123 H Lactic Acid Calcium Ferritin AST Alkaline Phosphatase Magnesium Lactate Dehydrogenase Total Creatine Kinase CK-MB (CK-2) C-Reactive Protein Total Protein Albumin Troponin T HDL Cholesterol Arterial Blood Glucose Urine WBC (Auto) Urine Creatinine Urine Total Protein Phenytoin Coronavirus (PCR) Crossmatch 07/09/20 07/10/20 07/10/20 17:56 00:29 05:50 WBC RBC Hgb Hct MCHC RDW Lymph % (Auto) [place] % (Auto) Eos % (Auto) Lymph # [place] # Lymph # (Auto) [place] # (Auto) Eos # (Auto) Seg Neutrophils % Seg Neuts % (Manual) Lymphocytes % (Manual) Seg Neutrophils # Seg Neutrophils # Man Lymphocytes # (Manual) Monocytes % (Manual) Eosinophils % (Manual) Monocytes # (Manual) Eosinophils # (Manual) D-Dimer Heparin Anti-Xa Level ABG pH POC ABG pCO2 POC ABG pO2 ABG pO2 ABG HCO3 ABG O2 Saturation ABG Base Excess ABG Hemoglobin ABG Oxyhemoglobin VBG pH ABG Sodium ABG Potassium ABG Glucose Oxyhemoglobin Sodium Potassium Chloride Carbon Dioxide BUN Creatinine Glucose POC Glucose 119 H 122 H 124 H Lactic Acid Calcium Ferritin AST Alkaline Phosphatase Magnesium Lactate Dehydrogenase Total Creatine Kinase CK-MB (CK-2) C-Reactive Protein Total Protein Albumin Troponin T HDL Cholesterol Arterial Blood Glucose Urine WBC (Auto) Urine Creatinine Urine Total Protein Phenytoin Coronavirus (PCR) Crossmatch 07/10/20 07/10/20 07/10/20 10:41 10:41 12:25 WBC RBC 3.11 L Hgb 9.2 L Hct 27.6 L MCHC RDW 16.6 H Lymph % (Auto) [place] % (Auto) Eos % (Auto) Lymph # [place] # Lymph # (Auto) [place] # (Auto) Eos # (Auto) Seg Neutrophils % Seg Neuts % (Manual) 78.0 H Lymphocytes % (Manual) 11.0 L Seg Neutrophils # Seg Neutrophils # Man Lymphocytes # (Manual) 1.0 L Monocytes % (Manual) Eosinophils % (Manual) Monocytes # (Manual) Eosinophils # (Manual) D-Dimer Heparin Anti-Xa Level ABG pH POC ABG pCO2 POC ABG pO2 ABG pO2 ABG HCO3 ABG O2 Saturation ABG Base Excess ABG Hemoglobin ABG Oxyhemoglobin VBG pH ABG Sodium ABG Potassium ABG Glucose Oxyhemoglobin Sodium Potassium Chloride Carbon Dioxide BUN 85 H Creatinine 2.5 H Glucose 133 H POC Glucose 131 H Lactic Acid Calcium Ferritin AST Alkaline Phosphatase 131 H Magnesium Lactate Dehydrogenase Total Creatine Kinase CK-MB (CK-2) C-Reactive Protein Total Protein 5.2 L Albumin 1.6 L Troponin T HDL Cholesterol Arterial Blood Glucose Urine WBC (Auto) Urine Creatinine Urine Total Protein Phenytoin Coronavirus (PCR) Crossmatch 07/10/20 07/11/20 07/11/20 18:10 00:28 05:57 WBC RBC Hgb Hct MCHC RDW Lymph % (Auto) [place] % (Auto) Eos % (Auto) Lymph # [place] # Lymph # (Auto) [place] # (Auto) Eos # (Auto) Seg Neutrophils % Seg Neuts % (Manual) Lymphocytes % (Manual) Seg Neutrophils # Seg Neutrophils # Man Lymphocytes # (Manual) Monocytes % (Manual) Eosinophils % (Manual) Monocytes # (Manual) Eosinophils # (Manual) D-Dimer Heparin Anti-Xa Level ABG pH POC ABG pCO2 POC ABG pO2 ABG pO2 ABG HCO3 ABG O2 Saturation ABG Base Excess ABG Hemoglobin ABG Oxyhemoglobin VBG pH ABG Sodium ABG Potassium ABG Glucose Oxyhemoglobin Sodium Potassium Chloride Carbon Dioxide BUN Creatinine Glucose POC Glucose 134 H 140 H 148 H Lactic Acid Calcium Ferritin AST Alkaline Phosphatase Magnesium Lactate Dehydrogenase Total Creatine Kinase CK-MB (CK-2) C-Reactive Protein Total Protein Albumin Troponin T HDL Cholesterol Arterial Blood Glucose Urine WBC (Auto) Urine Creatinine Urine Total Protein Phenytoin Coronavirus (PCR) Crossmatch 07/11/20 07/11/20 07/11/20 12:14 17:28 23:49 WBC RBC Hgb Hct MCHC RDW Lymph % (Auto) [place] % (Auto) Eos % (Auto) Lymph # [place] # Lymph # (Auto) [place] # (Auto) Eos # (Auto) Seg Neutrophils % Seg Neuts % (Manual) Lymphocytes % (Manual) Seg Neutrophils # Seg Neutrophils # Man Lymphocytes # (Manual) Monocytes % (Manual) Eosinophils % (Manual) Monocytes # (Manual) Eosinophils # (Manual) D-Dimer Heparin Anti-Xa Level ABG pH POC ABG pCO2 POC ABG pO2 ABG pO2 ABG HCO3 ABG O2 Saturation ABG Base Excess ABG Hemoglobin ABG Oxyhemoglobin VBG pH ABG Sodium ABG Potassium ABG Glucose Oxyhemoglobin Sodium Potassium Chloride Carbon Dioxide BUN Creatinine Glucose POC Glucose 147 H 175 H 114 H Lactic Acid Calcium Ferritin AST Alkaline Phosphatase Magnesium Lactate Dehydrogenase Total Creatine Kinase CK-MB (CK-2) C-Reactive Protein Total Protein Albumin Troponin T HDL Cholesterol Arterial Blood Glucose Urine WBC (Auto) Urine Creatinine Urine Total Protein Phenytoin Coronavirus (PCR) Crossmatch 07/12/20 07/12/20 07/12/20 05:14 05:14 05:44 WBC RBC 2.78 L Hgb 8.5 L Hct 25.3 L MCHC RDW 16.7 H Lymph % (Auto) [place] % (Auto) Eos % (Auto) Lymph # [place] # Lymph # (Auto) [place] # (Auto) Eos # (Auto) Seg Neutrophils % Seg Neuts % (Manual) 81.0 H Lymphocytes % (Manual) 6.0 L Seg Neutrophils # Seg Neutrophils # Man Lymphocytes # (Manual) 0.6 L Monocytes % (Manual) 8.0 H Eosinophils % (Manual) Monocytes # (Manual) Eosinophils # (Manual) D-Dimer Heparin Anti-Xa Level ABG pH POC ABG pCO2 POC ABG pO2 ABG pO2 ABG HCO3 ABG O2 Saturation ABG Base Excess ABG Hemoglobin ABG Oxyhemoglobin VBG pH ABG Sodium ABG Potassium ABG Glucose Oxyhemoglobin Sodium Potassium Chloride Carbon Dioxide BUN 79 H Creatinine 2.2 H Glucose 131 H POC Glucose 116 H Lactic Acid Calcium Ferritin AST Alkaline Phosphatase Magnesium Lactate Dehydrogenase Total Creatine Kinase CK-MB (CK-2) C-Reactive Protein Total Protein Albumin Troponin T HDL Cholesterol Arterial Blood Glucose Urine WBC (Auto) Urine Creatinine Urine Total Protein Phenytoin Coronavirus (PCR) Crossmatch 07/12/20 07/12/20 07/13/20 11:32 17:53 00:18 WBC RBC Hgb Hct MCHC RDW Lymph % (Auto) [place] % (Auto) Eos % (Auto) Lymph # [place] # Lymph # (Auto) [place] # (Auto) Eos # (Auto) Seg Neutrophils % Seg Neuts % (Manual) Lymphocytes % (Manual) Seg Neutrophils # Seg Neutrophils # Man Lymphocytes # (Manual) Monocytes % (Manual) Eosinophils % (Manual) Monocytes # (Manual) Eosinophils # (Manual) D-Dimer Heparin Anti-Xa Level ABG pH POC ABG pCO2 POC ABG pO2 ABG pO2 ABG HCO3 ABG O2 Saturation ABG Base Excess ABG Hemoglobin ABG Oxyhemoglobin VBG pH ABG Sodium ABG Potassium ABG Glucose Oxyhemoglobin Sodium Potassium Chloride Carbon Dioxide BUN Creatinine Glucose POC Glucose 132 H 155 H 162 H Lactic Acid Calcium Ferritin AST Alkaline Phosphatase Magnesium Lactate Dehydrogenase Total Creatine Kinase CK-MB (CK-2) C-Reactive Protein Total Protein Albumin Troponin T HDL Cholesterol Arterial Blood Glucose Urine WBC (Auto) Urine Creatinine Urine Total Protein Phenytoin Coronavirus (PCR) Crossmatch 07/13/20 07/13/20 07/13/20 04:53 04:53 06:14 WBC RBC 2.86 L Hgb 8.4 L Hct 25.7 L MCHC RDW 16.8 H Lymph % (Auto) [place] % (Auto) Eos % (Auto) Lymph # [place] # Lymph # (Auto) [place] # (Auto) Eos # (Auto) Seg Neutrophils % Seg Neuts % (Manual) 84.0 H Lymphocytes % (Manual) 7.0 L Seg Neutrophils # Seg Neutrophils # Man Lymphocytes # (Manual) 0.6 L Monocytes % (Manual) Eosinophils % (Manual) Monocytes # (Manual) Eosinophils # (Manual) D-Dimer Heparin Anti-Xa Level ABG pH POC ABG pCO2 POC ABG pO2 ABG pO2 ABG HCO3 ABG O2 Saturation ABG Base Excess ABG Hemoglobin ABG Oxyhemoglobin VBG pH ABG Sodium ABG Potassium ABG Glucose Oxyhemoglobin Sodium 136 L Potassium Chloride Carbon Dioxide BUN 78 H Creatinine 2.0 H Glucose 130 H POC Glucose 141 H Lactic Acid Calcium Ferritin AST Alkaline Phosphatase Magnesium Lactate Dehydrogenase Total Creatine Kinase CK-MB (CK-2) C-Reactive Protein Total Protein Albumin Troponin T HDL Cholesterol Arterial Blood Glucose Urine WBC (Auto) Urine Creatinine Urine Total Protein Phenytoin Coronavirus (PCR) Crossmatch 07/13/20 07/13/20 07/14/20 12:50 18:27 00:22 WBC RBC Hgb Hct MCHC RDW Lymph % (Auto) [place] % (Auto) Eos % (Auto) Lymph # [place] # Lymph # (Auto) [place] # (Auto) Eos # (Auto) Seg Neutrophils % Seg Neuts % (Manual) Lymphocytes % (Manual) Seg Neutrophils # Seg Neutrophils # Man Lymphocytes # (Manual) Monocytes % (Manual) Eosinophils % (Manual) Monocytes # (Manual) Eosinophils # (Manual) D-Dimer Heparin Anti-Xa Level ABG pH POC ABG pCO2 POC ABG pO2 ABG pO2 ABG HCO3 ABG O2 Saturation ABG Base Excess ABG Hemoglobin ABG Oxyhemoglobin VBG pH ABG Sodium ABG Potassium ABG Glucose Oxyhemoglobin Sodium Potassium Chloride Carbon Dioxide BUN Creatinine Glucose POC Glucose 146 H 149 H 157 H Lactic Acid Calcium Ferritin AST Alkaline Phosphatase Magnesium Lactate Dehydrogenase Total Creatine Kinase CK-MB (CK-2) C-Reactive Protein Total Protein Albumin Troponin T HDL Cholesterol Arterial Blood Glucose Urine WBC (Auto) Urine Creatinine Urine Total Protein Phenytoin Coronavirus (PCR) Crossmatch 07/14/20 07/14/20 07/14/20 05:43 08:04 12:12 WBC RBC Hgb Hct MCHC RDW Lymph % (Auto) [place] % (Auto) Eos % (Auto) Lymph # [place] # Lymph # (Auto) [place] # (Auto) Eos # (Auto) Seg Neutrophils % Seg Neuts % (Manual) Lymphocytes % (Manual) Seg Neutrophils # Seg Neutrophils # Man Lymphocytes # (Manual) Monocytes % (Manual) Eosinophils % (Manual) Monocytes # (Manual) Eosinophils # (Manual) D-Dimer Heparin Anti-Xa Level ABG pH POC ABG pCO2 POC ABG pO2 ABG pO2 ABG HCO3 ABG O2 Saturation ABG Base Excess ABG Hemoglobin ABG Oxyhemoglobin VBG pH ABG Sodium ABG Potassium ABG Glucose Oxyhemoglobin Sodium Potassium Chloride Carbon Dioxide BUN Creatinine Glucose POC Glucose 169 H 185 H Lactic Acid Calcium Ferritin AST Alkaline Phosphatase Magnesium Lactate Dehydrogenase Total Creatine Kinase CK-MB (CK-2) C-Reactive Protein Total Protein Albumin Troponin T HDL Cholesterol Arterial Blood Glucose Urine WBC (Auto) Urine Creatinine Urine Total Protein Phenytoin Coronavirus (PCR) Positive A Crossmatch 07/14/20 07/15/20 07/15/20 17:23 00:04 06:06 WBC RBC Hgb Hct MCHC RDW Lymph % (Auto) [place] % (Auto) Eos % (Auto) Lymph # [place] # Lymph # (Auto) [place] # (Auto) Eos # (Auto) Seg Neutrophils % Seg Neuts % (Manual) Lymphocytes % (Manual) Seg Neutrophils # Seg Neutrophils # Man Lymphocytes # (Manual) Monocytes % (Manual) Eosinophils % (Manual) Monocytes # (Manual) Eosinophils # (Manual) D-Dimer Heparin Anti-Xa Level ABG pH POC ABG pCO2 POC ABG pO2 ABG pO2 ABG HCO3 ABG O2 Saturation ABG Base Excess ABG Hemoglobin ABG Oxyhemoglobin VBG pH ABG Sodium ABG Potassium ABG Glucose Oxyhemoglobin Sodium Potassium Chloride Carbon Dioxide BUN Creatinine Glucose POC Glucose 138 H 121 H 140 H Lactic Acid Calcium Ferritin AST Alkaline Phosphatase Magnesium Lactate Dehydrogenase Total Creatine Kinase CK-MB (CK-2) C-Reactive Protein Total Protein Albumin Troponin T HDL Cholesterol Arterial Blood Glucose Urine WBC (Auto) Urine Creatinine Urine Total Protein Phenytoin Coronavirus (PCR) Crossmatch 07/15/20 07/15/20 07/15/20 12:00 17:53 23:53 WBC RBC Hgb Hct MCHC RDW Lymph % (Auto) [place] % (Auto) Eos % (Auto) Lymph # [place] # Lymph # (Auto) [place] # (Auto) Eos # (Auto) Seg Neutrophils % Seg Neuts % (Manual) Lymphocytes % (Manual) Seg Neutrophils # Seg Neutrophils # Man Lymphocytes # (Manual) Monocytes % (Manual) Eosinophils % (Manual) Monocytes # (Manual) Eosinophils # (Manual) D-Dimer Heparin Anti-Xa Level ABG pH POC ABG pCO2 POC ABG pO2 ABG pO2 ABG HCO3 ABG O2 Saturation ABG Base Excess ABG Hemoglobin ABG Oxyhemoglobin VBG pH ABG Sodium ABG Potassium ABG Glucose Oxyhemoglobin Sodium Potassium Chloride Carbon Dioxide BUN Creatinine Glucose POC Glucose 137 H 161 H 156 H Lactic Acid Calcium Ferritin AST Alkaline Phosphatase Magnesium Lactate Dehydrogenase Total Creatine Kinase CK-MB (CK-2) C-Reactive Protein Total Protein Albumin Troponin T HDL Cholesterol Arterial Blood Glucose Urine WBC (Auto) Urine Creatinine Urine Total Protein Phenytoin Coronavirus (PCR) Crossmatch 07/16/20 07/16/20 07/17/20 05:26 17:44 00:07 WBC RBC Hgb Hct MCHC RDW Lymph % (Auto) [place] % (Auto) Eos % (Auto) Lymph # [place] # Lymph # (Auto) [place] # (Auto) Eos # (Auto) Seg Neutrophils % Seg Neuts % (Manual) Lymphocytes % (Manual) Seg Neutrophils # Seg Neutrophils # Man Lymphocytes # (Manual) Monocytes % (Manual) Eosinophils % (Manual) Monocytes # (Manual) Eosinophils # (Manual) D-Dimer Heparin Anti-Xa Level ABG pH POC ABG pCO2 POC ABG pO2 ABG pO2 ABG HCO3 ABG O2 Saturation ABG Base Excess ABG Hemoglobin ABG Oxyhemoglobin VBG pH ABG Sodium ABG Potassium ABG Glucose Oxyhemoglobin Sodium Potassium Chloride Carbon Dioxide BUN Creatinine Glucose POC Glucose 152 H 126 H 189 H Lactic Acid Calcium Ferritin AST Alkaline Phosphatase Magnesium Lactate Dehydrogenase Total Creatine Kinase CK-MB (CK-2) C-Reactive Protein Total Protein Albumin Troponin T HDL Cholesterol Arterial Blood Glucose Urine WBC (Auto) Urine Creatinine Urine Total Protein Phenytoin Coronavirus (PCR) Crossmatch 07/17/20 07/17/20 07/17/20 12:06 18:20 23:25 WBC RBC Hgb Hct MCHC RDW Lymph % (Auto) [place] % (Auto) Eos % (Auto) Lymph # [place] # Lymph # (Auto) [place] # (Auto) Eos # (Auto) Seg Neutrophils % Seg Neuts % (Manual) Lymphocytes % (Manual) Seg Neutrophils # Seg Neutrophils # Man Lymphocytes # (Manual) Monocytes % (Manual) Eosinophils % (Manual) Monocytes # (Manual) Eosinophils # (Manual) D-Dimer Heparin Anti-Xa Level ABG pH POC ABG pCO2 POC ABG pO2 ABG pO2 ABG HCO3 ABG O2 Saturation ABG Base Excess ABG Hemoglobin ABG Oxyhemoglobin VBG pH ABG Sodium ABG Potassium ABG Glucose Oxyhemoglobin Sodium Potassium Chloride Carbon Dioxide BUN Creatinine Glucose POC Glucose 155 H 206 H 161 H Lactic Acid Calcium Ferritin AST Alkaline Phosphatase Magnesium Lactate Dehydrogenase Total Creatine Kinase CK-MB (CK-2) C-Reactive Protein Total Protein Albumin Troponin T HDL Cholesterol Arterial Blood Glucose Urine WBC (Auto) Urine Creatinine Urine Total Protein Phenytoin Coronavirus (PCR) Crossmatch 07/18/20 07/18/20 07/18/20 04:24 05:16 11:53 WBC RBC Hgb Hct MCHC RDW Lymph % (Auto) [place] % (Auto) Eos % (Auto) Lymph # [place] # Lymph # (Auto) [place] # (Auto) Eos # (Auto) Seg Neutrophils % Seg Neuts % (Manual) Lymphocytes % (Manual) Seg Neutrophils # Seg Neutrophils # Man Lymphocytes # (Manual) Monocytes % (Manual) Eosinophils % (Manual) Monocytes # (Manual) Eosinophils # (Manual) D-Dimer Heparin Anti-Xa Level ABG pH POC ABG pCO2 POC ABG pO2 ABG pO2 ABG HCO3 ABG O2 Saturation ABG Base Excess ABG Hemoglobin 8.8 L ABG Oxyhemoglobin VBG pH ABG Sodium 131.6 L ABG Potassium 4.9 H ABG Glucose 131 H Oxyhemoglobin Sodium Potassium Chloride Carbon Dioxide BUN Creatinine Glucose POC Glucose 140 H 176 H Lactic Acid Calcium Ferritin AST Alkaline Phosphatase Magnesium Lactate Dehydrogenase Total Creatine Kinase CK-MB (CK-2) C-Reactive Protein Total Protein Albumin Troponin T HDL Cholesterol Arterial Blood Glucose 131 H Urine WBC (Auto) Urine Creatinine Urine Total Protein Phenytoin Coronavirus (PCR) Crossmatch 07/18/20 07/18/20 07/19/20 18:11 23:51 01:05 WBC RBC 2.76 L Hgb 7.9 L Hct 24.5 L MCHC RDW 17.6 H Lymph % (Auto) 11.6 L [place] % (Auto) 13.1 H Eos % (Auto) Lymph # [place] # Lymph # (Auto) 1.0 L [place] # (Auto) 1.1 H Eos # (Auto) Seg Neutrophils % 70.9 H Seg Neuts % (Manual) Lymphocytes % (Manual) Seg Neutrophils # Seg Neutrophils # Man Lymphocytes # (Manual) Monocytes % (Manual) Eosinophils % (Manual) Monocytes # (Manual) Eosinophils # (Manual) D-Dimer Heparin Anti-Xa Level ABG pH POC ABG pCO2 POC ABG pO2 ABG pO2 ABG HCO3 ABG O2 Saturation ABG Base Excess ABG Hemoglobin ABG Oxyhemoglobin VBG pH ABG Sodium ABG Potassium ABG Glucose Oxyhemoglobin Sodium Potassium Chloride Carbon Dioxide BUN Creatinine Glucose POC Glucose 143 H 159 H Lactic Acid Calcium Ferritin AST Alkaline Phosphatase Magnesium Lactate Dehydrogenase Total Creatine Kinase CK-MB (CK-2) C-Reactive Protein Total Protein Albumin Troponin T HDL Cholesterol Arterial Blood Glucose Urine WBC (Auto) Urine Creatinine Urine Total Protein Phenytoin Coronavirus (PCR) Crossmatch 07/19/20 07/19/20 07/19/20 01:05 05:54 12:46 WBC RBC Hgb Hct MCHC RDW Lymph % (Auto) [place] % (Auto) Eos % (Auto) Lymph # [place] # Lymph # (Auto) [place] # (Auto) Eos # (Auto) Seg Neutrophils % Seg Neuts % (Manual) Lymphocytes % (Manual) Seg Neutrophils # Seg Neutrophils # Man Lymphocytes # (Manual) Monocytes % (Manual) Eosinophils % (Manual) Monocytes # (Manual) Eosinophils # (Manual) D-Dimer Heparin Anti-Xa Level ABG pH POC ABG pCO2 POC ABG pO2 ABG pO2 ABG HCO3 ABG O2 Saturation ABG Base Excess ABG Hemoglobin ABG Oxyhemoglobin VBG pH ABG Sodium ABG Potassium ABG Glucose Oxyhemoglobin Sodium Potassium Chloride Carbon Dioxide BUN 86 H Creatinine 1.7 H Glucose 149 H POC Glucose 176 H 127 H Lactic Acid Calcium Ferritin AST Alkaline Phosphatase Magnesium Lactate Dehydrogenase Total Creatine Kinase CK-MB (CK-2) C-Reactive Protein Total Protein Albumin Troponin T HDL Cholesterol Arterial Blood Glucose Urine WBC (Auto) Urine Creatinine Urine Total Protein Phenytoin Coronavirus (PCR) Crossmatch 07/19/20 07/20/20 07/20/20 17:48 00:34 05:28 WBC RBC Hgb Hct MCHC RDW Lymph % (Auto) [place] % (Auto) Eos % (Auto) Lymph # [place] # Lymph # (Auto) [place] # (Auto) Eos # (Auto) Seg Neutrophils % Seg Neuts % (Manual) Lymphocytes % (Manual) Seg Neutrophils # Seg Neutrophils # Man Lymphocytes # (Manual) Monocytes % (Manual) Eosinophils % (Manual) Monocytes # (Manual) Eosinophils # (Manual) D-Dimer Heparin Anti-Xa Level ABG pH POC ABG pCO2 POC ABG pO2 ABG pO2 ABG HCO3 ABG O2 Saturation ABG Base Excess ABG Hemoglobin ABG Oxyhemoglobin VBG pH ABG Sodium ABG Potassium ABG Glucose Oxyhemoglobin Sodium Potassium Chloride Carbon Dioxide BUN Creatinine Glucose POC Glucose 123 H 147 H 110 H Lactic Acid Calcium Ferritin AST Alkaline Phosphatase Magnesium Lactate Dehydrogenase Total Creatine Kinase CK-MB (CK-2) C-Reactive Protein Total Protein Albumin Troponin T HDL Cholesterol Arterial Blood Glucose Urine WBC (Auto) Urine Creatinine Urine Total Protein Phenytoin Coronavirus (PCR) Crossmatch 07/20/20 07/20/20 07/21/20 12:10 17:00 00:11 WBC RBC Hgb Hct MCHC RDW Lymph % (Auto) [place] % (Auto) Eos % (Auto) Lymph # [place] # Lymph # (Auto) [place] # (Auto) Eos # (Auto) Seg Neutrophils % Seg Neuts % (Manual) Lymphocytes % (Manual) Seg Neutrophils # Seg Neutrophils # Man Lymphocytes # (Manual) Monocytes % (Manual) Eosinophils % (Manual) Monocytes # (Manual) Eosinophils # (Manual) D-Dimer Heparin Anti-Xa Level ABG pH POC ABG pCO2 POC ABG pO2 ABG pO2 ABG HCO3 ABG O2 Saturation ABG Base Excess ABG Hemoglobin ABG Oxyhemoglobin VBG pH ABG Sodium ABG Potassium ABG Glucose Oxyhemoglobin Sodium Potassium Chloride Carbon Dioxide BUN Creatinine Glucose POC Glucose 149 H 173 H 128 H Lactic Acid Calcium Ferritin AST Alkaline Phosphatase Magnesium Lactate Dehydrogenase Total Creatine Kinase CK-MB (CK-2) C-Reactive Protein Total Protein Albumin Troponin T HDL Cholesterol Arterial Blood Glucose Urine WBC (Auto) Urine Creatinine Urine Total Protein Phenytoin Coronavirus (PCR) Crossmatch 07/21/20 07/21/20 07/21/20 05:30 12:21 18:17 WBC RBC Hgb Hct MCHC RDW Lymph % (Auto) [place] % (Auto) Eos % (Auto) Lymph # [place] # Lymph # (Auto) [place] # (Auto) Eos # (Auto) Seg Neutrophils % Seg Neuts % (Manual) Lymphocytes % (Manual) Seg Neutrophils # Seg Neutrophils # Man Lymphocytes # (Manual) Monocytes % (Manual) Eosinophils % (Manual) Monocytes # (Manual) Eosinophils # (Manual) D-Dimer Heparin Anti-Xa Level ABG pH POC ABG pCO2 POC ABG pO2 ABG pO2 ABG HCO3 ABG O2 Saturation ABG Base Excess ABG Hemoglobin ABG Oxyhemoglobin VBG pH ABG Sodium ABG Potassium ABG Glucose Oxyhemoglobin Sodium Potassium Chloride Carbon Dioxide BUN Creatinine Glucose POC Glucose 153 H 144 H 160 H Lactic Acid Calcium Ferritin AST Alkaline Phosphatase Magnesium Lactate Dehydrogenase Total Creatine Kinase CK-MB (CK-2) C-Reactive Protein Total Protein Albumin Troponin T HDL Cholesterol Arterial Blood Glucose Urine WBC (Auto) Urine Creatinine Urine Total Protein Phenytoin Coronavirus (PCR) Crossmatch 07/22/20 07/22/20 07/22/20 00:45 05:52 12:03 WBC RBC Hgb Hct MCHC RDW Lymph % (Auto) [place] % (Auto) Eos % (Auto) Lymph # [place] # Lymph # (Auto) [place] # (Auto) Eos # (Auto) Seg Neutrophils % Seg Neuts % (Manual) Lymphocytes % (Manual) Seg Neutrophils # Seg Neutrophils # Man Lymphocytes # (Manual) Monocytes % (Manual) Eosinophils % (Manual) Monocytes # (Manual) Eosinophils # (Manual) D-Dimer Heparin Anti-Xa Level ABG pH POC ABG pCO2 POC ABG pO2 ABG pO2 ABG HCO3 ABG O2 Saturation ABG Base Excess ABG Hemoglobin ABG Oxyhemoglobin VBG pH ABG Sodium ABG Potassium ABG Glucose Oxyhemoglobin Sodium Potassium Chloride Carbon Dioxide BUN Creatinine Glucose POC Glucose 128 H 126 H 157 H Lactic Acid Calcium Ferritin AST Alkaline Phosphatase Magnesium Lactate Dehydrogenase Total Creatine Kinase CK-MB (CK-2) C-Reactive Protein Total Protein Albumin Troponin T HDL Cholesterol Arterial Blood Glucose Urine WBC (Auto) Urine Creatinine Urine Total Protein Phenytoin Coronavirus (PCR) Crossmatch 07/22/20 07/22/2007/23/20 18:23 23:20 06:06 WBC RBC Hgb Hct MCHC RDW Lymph % (Auto) [place] % (Auto) Eos % (Auto) Lymph # [place] # Lymph # (Auto) [place] # (Auto) Eos # (Auto) Seg Neutrophils % Seg Neuts % (Manual) Lymphocytes % (Manual) Seg Neutrophils # Seg Neutrophils # Man Lymphocytes # (Manual) Monocytes % (Manual) Eosinophils % (Manual) Monocytes # (Manual) Eosinophils # (Manual) D-Dimer Heparin Anti-Xa Level ABG pH POC ABG pCO2 POC ABG pO2 ABG pO2 ABG HCO3 ABG O2 Saturation ABG Base Excess ABG Hemoglobin ABG Oxyhemoglobin VBG pH ABG Sodium ABG Potassium ABG Glucose Oxyhemoglobin Sodium Potassium Chloride Carbon Dioxide BUN Creatinine Glucose POC Glucose 152 H 122 H 143 H Lactic Acid Calcium Ferritin AST Alkaline Phosphatase Magnesium Lactate Dehydrogenase Total Creatine Kinase CK-MB (CK-2) C-Reactive Protein Total Protein Albumin Troponin T HDL Cholesterol Arterial Blood Glucose Urine WBC (Auto) Urine Creatinine Urine Total Protein Phenytoin Coronavirus (PCR) Crossmatch 07/23/20 07/23/20 07/23/20 12:11 17:38 19:23 WBC RBC Hgb Hct MCHC RDW Lymph % (Auto) [place] % (Auto) Eos % (Auto) Lymph # [place] # Lymph # (Auto) [place] # (Auto) Eos # (Auto) Seg Neutrophils % Seg Neuts % (Manual) Lymphocytes % (Manual) Seg Neutrophils # Seg Neutrophils # Man Lymphocytes # (Manual) Monocytes % (Manual) Eosinophils % (Manual) Monocytes # (Manual) Eosinophils # (Manual) D-Dimer Heparin Anti-Xa Level ABG pH POC ABG pCO2 POC ABG pO2 ABG pO2 ABG HCO3 ABG O2 Saturation ABG Base Excess ABG Hemoglobin ABG Oxyhemoglobin VBG pH ABG Sodium ABG Potassium ABG Glucose Oxyhemoglobin Sodium 129 L D Potassium 5.8 H Chloride 95.6 L Carbon Dioxide BUN 98 H Creatinine 2.1 H Glucose 167 H POC Glucose 210 H 181 H Lactic Acid Calcium Ferritin AST Alkaline Phosphatase Magnesium Lactate Dehydrogenase Total Creatine Kinase CK-MB (CK-2) C-Reactive Protein Total Protein Albumin 2.2 L Troponin T HDL Cholesterol Arterial Blood Glucose Urine WBC (Auto) Urine Creatinine Urine Total Protein Phenytoin Coronavirus (PCR) Crossmatch 07/24/20 07/24/20 07/24/20 00:00 04:29 04:29 WBC RBC 2.53 L Hgb 7.5 L Hct 22.8 L MCHC RDW 16.8 H Lymph % (Auto) 9.4 L [place] % (Auto) 10.4 H Eos % (Auto) 5.9 H Lymph # [place] # Lymph # (Auto) 0.8 L [place] # (Auto) 0.9 H Eos # (Auto) 0.5 H Seg Neutrophils % 73.5 H Seg Neuts % (Manual) Lymphocytes % (Manual) Seg Neutrophils # Seg Neutrophils # Man Lymphocytes # (Manual) Monocytes % (Manual) Eosinophils % (Manual) Monocytes # (Manual) Eosinophils # (Manual) D-Dimer Heparin Anti-Xa Level ABG pH POC ABG pCO2 POC ABG pO2 ABG pO2 ABG HCO3 ABG O2 Saturation ABG Base Excess ABG Hemoglobin ABG Oxyhemoglobin VBG pH ABG Sodium ABG Potassium ABG Glucose Oxyhemoglobin Sodium Potassium Chloride Carbon Dioxide BUN Creatinine Glucose POC Glucose 201 H Lactic Acid Calcium Ferritin AST Alkaline Phosphatase Magnesium Lactate Dehydrogenase Total Creatine Kinase CK-MB (CK-2) C-Reactive Protein Total Protein Albumin Troponin T HDL Cholesterol Arterial Blood Glucose Urine WBC (Auto) Urine Creatinine Urine Total Protein Phenytoin 9.4 L Coronavirus (PCR) Crossmatch 07/24/20 07/24/20 07/24/20 04:29 05:11 12:14 WBC RBC Hgb Hct MCHC RDW Lymph % (Auto) [place] % (Auto) Eos % (Auto) Lymph # [place] # Lymph # (Auto) [place] # (Auto) Eos # (Auto) Seg Neutrophils % Seg Neuts % (Manual) Lymphocytes % (Manual) Seg Neutrophils # Seg Neutrophils # Man Lymphocytes # (Manual) Monocytes % (Manual) Eosinophils % (Manual) Monocytes # (Manual) Eosinophils # (Manual) D-Dimer Heparin Anti-Xa Level ABG pH POC ABG pCO2 POC ABG pO2 ABG pO2 ABG HCO3 ABG O2 Saturation ABG Base Excess ABG Hemoglobin ABG Oxyhemoglobin VBG pH ABG Sodium ABG Potassium ABG Glucose Oxyhemoglobin Sodium 134 L Potassium 5.5 H Chloride Carbon Dioxide BUN 97 H Creatinine 2.2 H Glucose 149 H POC Glucose 142 H 146 H Lactic Acid Calcium Ferritin AST Alkaline Phosphatase Magnesium 2.60 H Lactate Dehydrogenase Total Creatine Kinase CK-MB (CK-2) C-Reactive Protein Total Protein Albumin Troponin T HDL Cholesterol Arterial Blood Glucose Urine WBC (Auto) Urine Creatinine Urine Total Protein Phenytoin Coronavirus (PCR) Crossmatch 07/24/20 07/24/20 07/25/20 18:12 21:00 00:08 WBC RBC Hgb Hct MCHC RDW Lymph % (Auto) [place] % (Auto) Eos % (Auto) Lymph # [place] # Lymph # (Auto) [place] # (Auto) Eos # (Auto) Seg Neutrophils % Seg Neuts % (Manual) Lymphocytes % (Manual) Seg Neutrophils # Seg Neutrophils # Man Lymphocytes # (Manual) Monocytes % (Manual) Eosinophils % (Manual) Monocytes # (Manual) Eosinophils # (Manual) D-Dimer Heparin Anti-Xa Level ABG pH POC ABG pCO2 POC ABG pO2 ABG pO2 ABG HCO3 ABG O2 Saturation ABG Base Excess ABG Hemoglobin ABG Oxyhemoglobin VBG pH ABG Sodium ABG Potassium ABG Glucose Oxyhemoglobin Sodium Potassium Chloride Carbon Dioxide BUN Creatinine Glucose POC Glucose 182 H 170 H 129 H Lactic Acid Calcium Ferritin AST Alkaline Phosphatase Magnesium Lactate Dehydrogenase Total Creatine Kinase CK-MB (CK-2) C-Reactive Protein Total Protein Albumin Troponin T HDL Cholesterol Arterial Blood Glucose Urine WBC (Auto) Urine Creatinine Urine Total Protein Phenytoin Coronavirus (PCR) Crossmatch 07/25/20 07/25/20 07/25/20 04:24 04:24 12:19 WBC RBC 2.51 L Hgb 7.5 L Hct 22.3 L MCHC RDW 17.4 H Lymph % (Auto) [place] % (Auto) Eos % (Auto) Lymph # [place] # Lymph # (Auto) [place] # (Auto) Eos # (Auto) Seg Neutrophils % Seg Neuts % (Manual) Lymphocytes % (Manual) Seg Neutrophils # Seg Neutrophils # Man Lymphocytes # (Manual) Monocytes % (Manual) Eosinophils % (Manual) Monocytes # (Manual) Eosinophils # (Manual) D-Dimer Heparin Anti-Xa Level ABG pH POC ABG pCO2 POC ABG pO2 ABG pO2 ABG HCO3 ABG O2 Saturation ABG Base Excess ABG Hemoglobin ABG Oxyhemoglobin VBG pH ABG Sodium ABG Potassium ABG Glucose Oxyhemoglobin Sodium 132 L Potassium Chloride 95.1 L Carbon Dioxide 21 L BUN 95 H Creatinine 2.5 H Glucose 108 H POC Glucose 122 H Lactic Acid Calcium Ferritin AST Alkaline Phosphatase Magnesium Lactate Dehydrogenase Total Creatine Kinase CK-MB (CK-2) C-Reactive Protein Total Protein Albumin Troponin T HDL Cholesterol Arterial Blood Glucose Urine WBC (Auto) Urine Creatinine Urine Total Protein Phenytoin Coronavirus (PCR) Crossmatch 07/25/20 07/25/20 07/26/20 18:11 23:24 04:22 WBC RBC Hgb Hct MCHC RDW Lymph % (Auto) [place] % (Auto) Eos % (Auto) Lymph # [place] # Lymph # (Auto) [place] # (Auto) Eos # (Auto) Seg Neutrophils % Seg Neuts % (Manual) Lymphocytes % (Manual) Seg Neutrophils # Seg Neutrophils # Man Lymphocytes # (Manual) Monocytes % (Manual) Eosinophils % (Manual) Monocytes # (Manual) Eosinophils # (Manual) D-Dimer Heparin Anti-Xa Level ABG pH POC ABG pCO2 POC ABG pO2 ABG pO2 ABG HCO3 ABG O2 Saturation ABG Base Excess ABG Hemoglobin ABG Oxyhemoglobin VBG pH ABG Sodium ABG Potassium ABG Glucose Oxyhemoglobin Sodium 132 L Potassium Chloride 96.2 L Carbon Dioxide 21 L BUN 99 H Creatinine 2.5 H Glucose 132 H POC Glucose 137 H 117 H Lactic Acid Calcium 8.2 L Ferritin AST Alkaline Phosphatase Magnesium Lactate Dehydrogenase Total Creatine Kinase CK-MB (CK-2) C-Reactive Protein Total Protein Albumin Troponin T HDL Cholesterol Arterial Blood Glucose Urine WBC (Auto) Urine Creatinine Urine Total Protein Phenytoin Coronavirus (PCR) Crossmatch 07/26/20 07/26/20 07/26/20 05:58 12:21 17:31 WBC RBC Hgb Hct MCHC RDW Lymph % (Auto) [place] % (Auto) Eos % (Auto) Lymph # [place] # Lymph # (Auto) [place] # (Auto) Eos # (Auto) Seg Neutrophils % Seg Neuts % (Manual) Lymphocytes % (Manual) Seg Neutrophils # Seg Neutrophils # Man Lymphocytes # (Manual) Monocytes % (Manual) Eosinophils % (Manual) Monocytes # (Manual) Eosinophils # (Manual) D-Dimer Heparin Anti-Xa Level ABG pH POC ABG pCO2 POC ABG pO2 ABG pO2 ABG HCO3 ABG O2 Saturation ABG Base Excess ABG Hemoglobin ABG Oxyhemoglobin VBG pH ABG Sodium ABG Potassium ABG Glucose Oxyhemoglobin Sodium Potassium Chloride Carbon Dioxide BUN Creatinine Glucose POC Glucose 110 H 142 H 180 H Lactic Acid Calcium Ferritin AST Alkaline Phosphatase Magnesium Lactate Dehydrogenase Total Creatine Kinase CK-MB (CK-2) C-Reactive Protein Total Protein Albumin Troponin T HDL Cholesterol Arterial Blood Glucose Urine WBC (Auto) Urine Creatinine Urine Total Protein Phenytoin Coronavirus (PCR) Crossmatch 07/26/20 07/27/20 07/27/20 23:36 03:36 05:36 WBC RBC 2.49 L Hgb 7.3 L Hct 22.2 L MCHC RDW 17.2 H Lymph % (Auto) 11.0 L [place] % (Auto) 11.7 H Eos % (Auto) Lymph # [place] # Lymph # (Auto) 0.8 L [place] # (Auto) 0.9 H Eos # (Auto) Seg Neutrophils % 72.3 H Seg Neuts % (Manual) Lymphocytes % (Manual) Seg Neutrophils # Seg Neutrophils # Man Lymphocytes # (Manual) Monocytes % (Manual) Eosinophils % (Manual) Monocytes # (Manual) Eosinophils # (Manual) D-Dimer Heparin Anti-Xa Level ABG pH POC ABG pCO2 POC ABG pO2 ABG pO2 ABG HCO3 ABG O2 Saturation ABG Base Excess ABG Hemoglobin ABG Oxyhemoglobin VBG pH ABG Sodium ABG Potassium ABG Glucose Oxyhemoglobin Sodium Potassium Chloride Carbon Dioxide BUN Creatinine Glucose POC Glucose 162 H 118 H Lactic Acid Calcium Ferritin AST Alkaline Phosphatase Magnesium Lactate Dehydrogenase Total Creatine Kinase CK-MB (CK-2) C-Reactive Protein Total Protein Albumin Troponin T HDL Cholesterol Arterial Blood Glucose Urine WBC (Auto) Urine Creatinine Urine Total Protein Phenytoin Coronavirus (PCR) Crossmatch 07/27/20 07/27/20 07/27/20 05:36 12:19 17:36 WBC RBC Hgb Hct MCHC RDW Lymph % (Auto) [place] % (Auto) Eos % (Auto) Lymph # [place] # Lymph # (Auto) [place] # (Auto) Eos # (Auto) Seg Neutrophils % Seg Neuts % (Manual) Lymphocytes % (Manual) Seg Neutrophils # Seg Neutrophils # Man Lymphocytes # (Manual) Monocytes % (Manual) Eosinophils % (Manual) Monocytes # (Manual) Eosinophils # (Manual) D-Dimer Heparin Anti-Xa Level ABG pH POC ABG pCO2 POC ABG pO2 ABG pO2 ABG HCO3 ABG O2 Saturation ABG Base Excess ABG Hemoglobin ABG Oxyhemoglobin VBG pH ABG Sodium ABG Potassium ABG Glucose Oxyhemoglobin Sodium 135 L Potassium 5.3 H Chloride Carbon Dioxide 21 L BUN 103 H Creatinine 2.6 H Glucose 113 H POC Glucose 131 H 151 H Lactic Acid Calcium 8.1 L Ferritin AST Alkaline Phosphatase Magnesium Lactate Dehydrogenase Total Creatine Kinase CK-MB (CK-2) C-Reactive Protein Total Protein Albumin Troponin T HDL Cholesterol Arterial Blood Glucose Urine WBC (Auto) Urine Creatinine Urine Total Protein Phenytoin Coronavirus (PCR) Crossmatch 07/27/20 07/28/20 07/28/20 23:29 04:30 04:30 WBC RBC 2.50 L Hgb 7.3 L Hct 22.2 L MCHC RDW 17.3 H Lymph % (Auto) 8.7 L [place] % (Auto) 8.3 H Eos % (Auto) Lymph # [place] # Lymph # (Auto) 0.7 L [place] # (Auto) Eos # (Auto) Seg Neutrophils % 79.1 H Seg Neuts % (Manual) Lymphocytes % (Manual) Seg Neutrophils # Seg Neutrophils # Man Lymphocytes # (Manual) Monocytes % (Manual) Eosinophils % (Manual) Monocytes # (Manual) Eosinophils # (Manual) D-Dimer Heparin Anti-Xa Level ABG pH POC ABG pCO2 POC ABG pO2 ABG pO2 ABG HCO3 ABG O2 Saturation ABG Base Excess ABG Hemoglobin ABG Oxyhemoglobin VBG pH ABG Sodium ABG Potassium ABG Glucose Oxyhemoglobin Sodium 135 L Potassium 5.2 H Chloride 96.8 L Carbon Dioxide 20 L BUN 107 H Creatinine 2.9 H Glucose POC Glucose 124 H Lactic Acid Calcium 8.2 L Ferritin AST Alkaline Phosphatase Magnesium 2.70 H Lactate Dehydrogenase Total Creatine Kinase CK-MB (CK-2) C-Reactive Protein Total Protein Albumin Troponin T HDL Cholesterol Arterial Blood Glucose Urine WBC (Auto) Urine Creatinine Urine Total Protein Phenytoin Coronavirus (PCR) Crossmatch 07/28/20 07/29/20 07/29/20 17:35 00:11 06:45 WBC RBC Hgb Hct MCHC RDW Lymph % (Auto) [place] % (Auto) Eos % (Auto) Lymph # [place] # Lymph # (Auto) [place] # (Auto) Eos # (Auto) Seg Neutrophils % Seg Neuts % (Manual) Lymphocytes % (Manual) Seg Neutrophils # Seg Neutrophils # Man Lymphocytes # (Manual) Monocytes % (Manual) Eosinophils % (Manual) Monocytes # (Manual) Eosinophils # (Manual) D-Dimer Heparin Anti-Xa Level ABG pH POC ABG pCO2 POC ABG pO2 ABG pO2 ABG HCO3 ABG O2 Saturation ABG Base Excess ABG Hemoglobin ABG Oxyhemoglobin VBG pH ABG Sodium ABG Potassium ABG Glucose Oxyhemoglobin Sodium Potassium Chloride Carbon Dioxide BUN Creatinine Glucose POC Glucose 146 H 143 H 179 H Lactic Acid Calcium Ferritin AST Alkaline Phosphatase Magnesium Lactate Dehydrogenase Total Creatine Kinase CK-MB (CK-2) C-Reactive Protein Total Protein Albumin Troponin T HDL Cholesterol Arterial Blood Glucose Urine WBC (Auto) Urine Creatinine Urine Total Protein Phenytoin Coronavirus (PCR) Crossmatch 07/29/20 07/29/20 07/29/20 11:54 13:01 13:01 WBC RBC 2.40 L Hgb 7.1 L Hct 20.9 L MCHC RDW 17.5 H Lymph % (Auto) [place] % (Auto) Eos % (Auto) Lymph # [place] # Lymph # (Auto) [place] # (Auto) Eos # (Auto) Seg Neutrophils % Seg Neuts % (Manual) 86.0 H Lymphocytes % (Manual) 6.0 L Seg Neutrophils # Seg Neutrophils # Man 8.9 H Lymphocytes # (Manual) 0.6 L Monocytes % (Manual) 8.0 H Eosinophils % (Manual) Monocytes # (Manual) Eosinophils # (Manual) D-Dimer Heparin Anti-Xa Level ABG pH POC ABG pCO2 POC ABG pO2 ABG pO2 ABG HCO3 ABG O2 Saturation ABG Base Excess ABG Hemoglobin ABG Oxyhemoglobin VBG pH ABG Sodium ABG Potassium ABG Glucose Oxyhemoglobin Sodium 129 L Potassium Chloride 92.9 L Carbon Dioxide BUN 112 H Creatinine 3.0 H Glucose 142 H POC Glucose 170 H Lactic Acid Calcium 7.9 L Ferritin AST Alkaline Phosphatase Magnesium Lactate Dehydrogenase Total Creatine Kinase CK-MB (CK-2) C-Reactive Protein Total Protein Albumin Troponin T HDL Cholesterol Arterial Blood Glucose Urine WBC (Auto) Urine Creatinine Urine Total Protein Phenytoin Coronavirus (PCR) Crossmatch 07/29/20 07/30/20 07/30/20 22:45 05:01 11:45 WBC RBC Hgb Hct MCHC RDW Lymph % (Auto) [place] % (Auto) Eos % (Auto) Lymph # [place] # Lymph # (Auto) [place] # (Auto) Eos # (Auto) Seg Neutrophils % Seg Neuts % (Manual) Lymphocytes % (Manual) Seg Neutrophils # Seg Neutrophils # Man Lymphocytes # (Manual) Monocytes % (Manual) Eosinophils % (Manual) Monocytes # (Manual) Eosinophils # (Manual) D-Dimer Heparin Anti-Xa Level ABG pH POC ABG pCO2 POC ABG pO2 ABG pO2 ABG HCO3 ABG O2 Saturation ABG Base Excess ABG Hemoglobin ABG Oxyhemoglobin VBG pH ABG Sodium ABG Potassium ABG Glucose Oxyhemoglobin Sodium Potassium Chloride Carbon Dioxide BUN Creatinine Glucose POC Glucose 129 H 150 H 130 H Lactic Acid Calcium Ferritin AST Alkaline Phosphatase Magnesium Lactate Dehydrogenase Total Creatine Kinase CK-MB (CK-2) C-Reactive Protein Total Protein Albumin Troponin T HDL Cholesterol Arterial Blood Glucose Urine WBC (Auto) Urine Creatinine Urine Total Protein Phenytoin Coronavirus (PCR) Crossmatch 07/30/20 07/30/20 07/30/20 17:54 21:26 23:58 WBC RBC Hgb Hct MCHC RDW Lymph % (Auto) [place] % (Auto) Eos % (Auto) Lymph # [place] # Lymph # (Auto) [place] # (Auto) Eos # (Auto) Seg Neutrophils % Seg Neuts % (Manual) Lymphocytes % (Manual) Seg Neutrophils # Seg Neutrophils # Man Lymphocytes # (Manual) Monocytes % (Manual) Eosinophils % (Manual) Monocytes # (Manual) Eosinophils # (Manual) D-Dimer Heparin Anti-Xa Level ABG pH POC ABG pCO2 POC ABG pO2 ABG pO2 ABG HCO3 ABG O2 Saturation ABG Base Excess ABG Hemoglobin ABG Oxyhemoglobin VBG pH ABG Sodium ABG Potassium ABG Glucose Oxyhemoglobin Sodium Potassium Chloride Carbon Dioxide BUN Creatinine Glucose POC Glucose 143 H 124 H 142 H Lactic Acid Calcium Ferritin AST Alkaline Phosphatase Magnesium Lactate Dehydrogenase Total Creatine Kinase CK-MB (CK-2) C-Reactive Protein Total Protein Albumin Troponin T HDL Cholesterol Arterial Blood Glucose Urine WBC (Auto) Urine Creatinine Urine Total Protein Phenytoin Coronavirus (PCR) Crossmatch 07/31/20 07/31/20 07/31/20 05:43 11:35 18:07 WBC RBC Hgb Hct MCHC RDW Lymph % (Auto) [place] % (Auto) Eos % (Auto) Lymph # [place] # Lymph # (Auto) [place] # (Auto) Eos # (Auto) Seg Neutrophils % Seg Neuts % (Manual) Lymphocytes % (Manual) Seg Neutrophils # Seg Neutrophils # Man Lymphocytes # (Manual) Monocytes % (Manual) Eosinophils % (Manual) Monocytes # (Manual) Eosinophils # (Manual) D-Dimer Heparin Anti-Xa Level ABG pH POC ABG pCO2 POC ABG pO2 ABG pO2 ABG HCO3 ABG O2 Saturation ABG Base Excess ABG Hemoglobin ABG Oxyhemoglobin VBG pH ABG Sodium ABG Potassium ABG Glucose Oxyhemoglobin Sodium Potassium Chloride Carbon Dioxide BUN Creatinine Glucose POC Glucose 152 H 179 H 129 H Lactic Acid Calcium Ferritin AST Alkaline Phosphatase Magnesium Lactate Dehydrogenase Total Creatine Kinase CK-MB (CK-2) C-Reactive Protein Total Protein Albumin Troponin T HDL Cholesterol Arterial Blood Glucose Urine WBC (Auto) Urine Creatinine Urine Total Protein Phenytoin Coronavirus (PCR) Crossmatch 07/31/20 07/31/20 08/01/20 21:30 22:12 00:25 WBC RBC Hgb Hct MCHC RDW Lymph % (Auto) [place] % (Auto) Eos % (Auto) Lymph # [place] # Lymph # (Auto) [place] # (Auto) Eos # (Auto) Seg Neutrophils % Seg Neuts % (Manual) Lymphocytes % (Manual) Seg Neutrophils # Seg Neutrophils # Man Lymphocytes # (Manual) Monocytes % (Manual) Eosinophils % (Manual) Monocytes # (Manual) Eosinophils # (Manual) D-Dimer Heparin Anti-Xa Level ABG pH POC ABG pCO2 POC ABG pO2 ABG pO2 ABG HCO3 ABG O2 Saturation ABG Base Excess ABG Hemoglobin ABG Oxyhemoglobin VBG pH ABG Sodium ABG Potassium ABG Glucose Oxyhemoglobin Sodium Potassium Chloride Carbon Dioxide BUN Creatinine Glucose POC Glucose 143 H 122 H 134 H Lactic Acid Calcium Ferritin AST Alkaline Phosphatase Magnesium Lactate Dehydrogenase Total Creatine Kinase CK-MB (CK-2) C-Reactive Protein Total Protein Albumin Troponin T HDL Cholesterol Arterial Blood Glucose Urine WBC (Auto) Urine Creatinine Urine Total Protein Phenytoin Coronavirus (PCR) Crossmatch 08/01/20 08/01/20 08/01/20 04:43 05:41 12:23 WBC RBC Hgb Hct MCHC RDW Lymph % (Auto) [place] % (Auto) Eos % (Auto) Lymph # [place] # Lymph # (Auto) [place] # (Auto) Eos # (Auto) Seg Neutrophils % Seg Neuts % (Manual) Lymphocytes % (Manual) Seg Neutrophils # Seg Neutrophils # Man Lymphocytes # (Manual) Monocytes % (Manual) Eosinophils % (Manual) Monocytes # (Manual) Eosinophils # (Manual) D-Dimer Heparin Anti-Xa Level ABG pH POC ABG pCO2 POC ABG pO2 ABG pO2 ABG HCO3 ABG O2 Saturation ABG Base Excess ABG Hemoglobin ABG Oxyhemoglobin VBG pH ABG Sodium ABG Potassium ABG Glucose Oxyhemoglobin Sodium 128 L Potassium 5.8 H Chloride 90.5 L Carbon Dioxide 19 L BUN 122 H Creatinine 3.4 H Glucose 124 H POC Glucose 130 H 128 H Lactic Acid Calcium 8.0 L Ferritin AST Alkaline Phosphatase Magnesium Lactate Dehydrogenase Total Creatine Kinase CK-MB (CK-2) C-Reactive Protein Total Protein Albumin Troponin T HDL Cholesterol Arterial Blood Glucose Urine WBC (Auto) Urine Creatinine Urine Total Protein Phenytoin Coronavirus (PCR) Crossmatch 08/01/20 08/02/20 08/02/20 17:28 00:06 05:32 WBC RBC Hgb Hct MCHC RDW Lymph % (Auto) [place] % (Auto) Eos % (Auto) Lymph # [place] # Lymph # (Auto) [place] # (Auto) Eos # (Auto) Seg Neutrophils % Seg Neuts % (Manual) Lymphocytes % (Manual) Seg Neutrophils # Seg Neutrophils # Man Lymphocytes # (Manual) Monocytes % (Manual) Eosinophils % (Manual) Monocytes # (Manual) Eosinophils # (Manual) D-Dimer Heparin Anti-Xa Level ABG pH POC ABG pCO2 POC ABG pO2 ABG pO2 ABG HCO3 ABG O2 Saturation ABG Base Excess ABG Hemoglobin ABG Oxyhemoglobin VBG pH ABG Sodium ABG Potassium ABG Glucose Oxyhemoglobin Sodium Potassium Chloride Carbon Dioxide BUN Creatinine Glucose POC Glucose 121 H 128 H 177 H Lactic Acid Calcium Ferritin AST Alkaline Phosphatase Magnesium Lactate Dehydrogenase Total Creatine Kinase CK-MB (CK-2) C-Reactive Protein Total Protein Albumin Troponin T HDL Cholesterol Arterial Blood Glucose Urine WBC (Auto) Urine Creatinine Urine Total Protein Phenytoin Coronavirus (PCR) Crossmatch 08/02/20 08/02/20 08/03/20 11:25 12:34 00:08 WBC RBC Hgb Hct MCHC RDW Lymph % (Auto) [place] % (Auto) Eos % (Auto) Lymph # [place] # Lymph # (Auto) [place] # (Auto) Eos # (Auto) Seg Neutrophils % Seg Neuts % (Manual) Lymphocytes % (Manual) Seg Neutrophils # Seg Neutrophils # Man Lymphocytes # (Manual) Monocytes % (Manual) Eosinophils % (Manual) Monocytes # (Manual) Eosinophils # (Manual) D-Dimer Heparin Anti-Xa Level ABG pH 7.344 L POC ABG pCO2 POC ABG pO2 ABG pO2 101.1 H ABG HCO3 ABG O2 Saturation ABG Base Excess -4.5 L ABG Hemoglobin 6.6 L ABG Oxyhemoglobin VBG pH ABG Sodium ABG Potassium ABG Glucose Oxyhemoglobin Sodium Potassium Chloride Carbon Dioxide BUN Creatinine Glucose POC Glucose 196 H 141 H Lactic Acid Calcium Ferritin AST Alkaline Phosphatase Magnesium Lactate Dehydrogenase Total Creatine Kinase CK-MB (CK-2) C-Reactive Protein Total Protein Albumin Troponin T HDL Cholesterol Arterial Blood Glucose Urine WBC (Auto) Urine Creatinine Urine Total Protein Phenytoin Coronavirus (PCR) Crossmatch 08/03/20 08/03/20 08/03/20 04:38 04:38 04:38 WBC 14.3 H RBC 2.42 L Hgb 7.0 L Hct 21.5 L MCHC RDW 18.1 H Lymph % (Auto) [place] % (Auto) Eos % (Auto) Lymph # [place] # Lymph # (Auto) [place] # (Auto) Eos # (Auto) Seg Neutrophils % Seg Neuts % (Manual) Lymphocytes % (Manual) Seg Neutrophils # Seg Neutrophils # Man Lymphocytes # (Manual) Monocytes % (Manual) Eosinophils % (Manual) Monocytes # (Manual) Eosinophils # (Manual) D-Dimer Heparin Anti-Xa Level ABG pH POC ABG pCO2 POC ABG pO2 ABG pO2 ABG HCO3 ABG O2 Saturation ABG Base Excess ABG Hemoglobin ABG Oxyhemoglobin VBG pH ABG Sodium ABG Potassium ABG Glucose Oxyhemoglobin Sodium 130 L Potassium Chloride 90.1 L Carbon Dioxide 20 L BUN 105 H Creatinine 3.1 H Glucose 115 H POC Glucose Lactic Acid 0.40 L Calcium 8.2 L Ferritin AST Alkaline Phosphatase Magnesium Lactate Dehydrogenase Total Creatine Kinase CK-MB (CK-2) C-Reactive Protein Total Protein Albumin Troponin T HDL Cholesterol Arterial Blood Glucose Urine WBC (Auto) Urine Creatinine Urine Total Protein Phenytoin Coronavirus (PCR) Crossmatch 08/03/20 08/03/20 08/03/20 05:33 12:04 17:51 WBC RBC Hgb Hct MCHC RDW Lymph % (Auto) [place] % (Auto) Eos % (Auto) Lymph # [place] # Lymph # (Auto) [place] # (Auto) Eos # (Auto) Seg Neutrophils % Seg Neuts % (Manual) Lymphocytes % (Manual) Seg Neutrophils # Seg Neutrophils # Man Lymphocytes # (Manual) Monocytes % (Manual) Eosinophils % (Manual) Monocytes # (Manual) Eosinophils # (Manual) D-Dimer Heparin Anti-Xa Level ABG pH POC ABG pCO2 POC ABG pO2 ABG pO2 ABG HCO3 ABG O2 Saturation ABG Base Excess ABG Hemoglobin ABG Oxyhemoglobin VBG pH ABG Sodium ABG Potassium ABG Glucose Oxyhemoglobin Sodium Potassium Chloride Carbon Dioxide BUN Creatinine Glucose POC Glucose 117 H 115 H 123 H Lactic Acid Calcium Ferritin AST Alkaline Phosphatase Magnesium Lactate Dehydrogenase Total Creatine Kinase CK-MB (CK-2) C-Reactive Protein Total Protein Albumin Troponin T HDL Cholesterol Arterial Blood Glucose Urine WBC (Auto) Urine Creatinine Urine Total Protein Phenytoin Coronavirus (PCR) Crossmatch 08/03/20 08/04/20 08/04/20 23:25 01:41 05:34 WBC RBC 2.20 L Hgb 6.5 L Hct 19.5 L* MCHC RDW 18.5 H Lymph % (Auto) 9.2 L [place] % (Auto) 9.8 H Eos % (Auto) Lymph # [place] # Lymph # (Auto) 0.8 L [place] # (Auto) Eos # (Auto) Seg Neutrophils % 77.7 H Seg Neuts % (Manual) Lymphocytes % (Manual) Seg Neutrophils # Seg Neutrophils # Man Lymphocytes # (Manual) Monocytes % (Manual) Eosinophils % (Manual) Monocytes # (Manual) Eosinophils # (Manual) D-Dimer Heparin Anti-Xa Level ABG pH POC ABG pCO2 POC ABG pO2 ABG pO2 ABG HCO3 ABG O2 Saturation ABG Base Excess ABG Hemoglobin ABG Oxyhemoglobin VBG pH ABG Sodium ABG Potassium ABG Glucose Oxyhemoglobin Sodium Potassium Chloride Carbon Dioxide BUN Creatinine Glucose POC Glucose 122 H 112 H Lactic Acid Calcium Ferritin AST Alkaline Phosphatase Magnesium Lactate Dehydrogenase Total Creatine Kinase CK-MB (CK-2) C-Reactive Protein Total Protein Albumin Troponin T HDL Cholesterol Arterial Blood Glucose Urine WBC (Auto) Urine Creatinine Urine Total Protein Phenytoin Coronavirus (PCR) Crossmatch 08/04/20 08/04/20 08/05/20 12:19 17:42 00:25 WBC RBC Hgb Hct MCHC RDW Lymph % (Auto) [place] % (Auto) Eos % (Auto) Lymph # [place] # Lymph # (Auto) [place] # (Auto) Eos # (Auto) Seg Neutrophils % Seg Neuts % (Manual) Lymphocytes % (Manual) Seg Neutrophils # Seg Neutrophils # Man Lymphocytes # (Manual) Monocytes % (Manual) Eosinophils % (Manual) Monocytes # (Manual) Eosinophils # (Manual) D-Dimer Heparin Anti-Xa Level ABG pH POC ABG pCO2 POC ABG pO2 ABG pO2 ABG HCO3 ABG O2 Saturation ABG Base Excess ABG Hemoglobin ABG Oxyhemoglobin VBG pH ABG Sodium ABG Potassium ABG Glucose Oxyhemoglobin Sodium Potassium Chloride Carbon Dioxide BUN Creatinine Glucose POC Glucose 108 H 113 H 119 H Lactic Acid Calcium Ferritin AST Alkaline Phosphatase Magnesium Lactate Dehydrogenase Total Creatine Kinase CK-MB (CK-2) C-Reactive Protein Total Protein Albumin Troponin T HDL Cholesterol Arterial Blood Glucose Urine WBC (Auto) Urine Creatinine Urine Total Protein Phenytoin Coronavirus (PCR) Crossmatch 08/05/20 08/05/20 08/05/20 05:24 05:35 05:35 WBC RBC 2.13 L Hgb 6.2 L Hct 18.9 L* MCHC RDW 18.7 H Lymph % (Auto) 10.0 L [place] % (Auto) 8.5 H Eos % (Auto) Lymph # [place] # Lymph # (Auto) 0.8 L [place] # (Auto) Eos # (Auto) Seg Neutrophils % 78.1 H Seg Neuts % (Manual) Lymphocytes % (Manual) Seg Neutrophils # Seg Neutrophils # Man Lymphocytes # (Manual) Monocytes % (Manual) Eosinophils % (Manual) Monocytes # (Manual) Eosinophils # (Manual) D-Dimer Heparin Anti-Xa Level ABG pH POC ABG pCO2 POC ABG pO2 ABG pO2 ABG HCO3 ABG O2 Saturation ABG Base Excess ABG Hemoglobin ABG Oxyhemoglobin VBG pH ABG Sodium ABG Potassium ABG Glucose Oxyhemoglobin Sodium 135 L Potassium Chloride 96.3 L Carbon Dioxide BUN 89 H Creatinine 2.8 H Glucose 116 H POC Glucose 138 H Lactic Acid Calcium 7.5 L Ferritin AST 53 H Alkaline Phosphatase 501 H Magnesium Lactate Dehydrogenase Total Creatine Kinase CK-MB (CK-2) C-Reactive Protein Total Protein 6.1 L Albumin 2.2 L Troponin T HDL Cholesterol Arterial Blood Glucose Urine WBC (Auto) Urine Creatinine Urine Total Protein Phenytoin Coronavirus (PCR) Crossmatch 08/05/20 08/05/20 08/05/20 09:15 12:17 18:00 WBC RBC Hgb Hct MCHC RDW Lymph % (Auto) [place] % (Auto) Eos % (Auto) Lymph # [place] # Lymph # (Auto) [place] # (Auto) Eos # (Auto) Seg Neutrophils % Seg Neuts % (Manual) Lymphocytes % (Manual) Seg Neutrophils # Seg Neutrophils # Man Lymphocytes # (Manual) Monocytes % (Manual) Eosinophils % (Manual) Monocytes # (Manual) Eosinophils # (Manual) D-Dimer Heparin Anti-Xa Level ABG pH POC ABG pCO2 POC ABG pO2 ABG pO2 ABG HCO3 ABG O2 Saturation ABG Base Excess ABG Hemoglobin ABG Oxyhemoglobin VBG pH ABG Sodium ABG Potassium ABG Glucose Oxyhemoglobin Sodium Potassium Chloride Carbon Dioxide BUN Creatinine Glucose POC Glucose 126 H 143 H Lactic Acid Calcium Ferritin AST Alkaline Phosphatase Magnesium Lactate Dehydrogenase Total Creatine Kinase CK-MB (CK-2) C-Reactive Protein Total Protein Albumin Troponin T HDL Cholesterol Arterial Blood Glucose Urine WBC (Auto) Urine Creatinine Urine Total Protein Phenytoin Coronavirus (PCR) Crossmatch See Detail 08/06/20 08/06/20 08/07/20 00:50 04:30 04:40 WBC RBC 2.43 L 2.48 L Hgb 7.2 L 7.4 L Hct 21.7 L 22.1 L MCHC RDW 18.1 H 18.1 H Lymph % (Auto) 9.9 L 11.7 L [place] % (Auto) 10.5 H 8.6 H Eos % (Auto) Lymph # [place] # Lymph # (Auto) 0.7 L 0.9 L [place] # (Auto) Eos # (Auto) Seg Neutrophils % 75.1 H 76.1 H Seg Neuts % (Manual) Lymphocytes % (Manual) Seg Neutrophils # Seg Neutrophils # Man Lymphocytes # (Manual) Monocytes % (Manual) Eosinophils % (Manual) Monocytes # (Manual) Eosinophils # (Manual) D-Dimer Heparin Anti-Xa Level ABG pH POC ABG pCO2 POC ABG pO2 ABG pO2 ABG HCO3 ABG O2 Saturation ABG Base Excess ABG Hemoglobin ABG Oxyhemoglobin VBG pH ABG Sodium ABG Potassium ABG Glucose Oxyhemoglobin Sodium Potassium Chloride Carbon Dioxide BUN Creatinine Glucose POC Glucose 117 H Lactic Acid Calcium Ferritin AST Alkaline Phosphatase Magnesium Lactate Dehydrogenase Total Creatine Kinase CK-MB (CK-2) C-Reactive Protein Total Protein Albumin Troponin T HDL Cholesterol Arterial Blood Glucose Urine WBC (Auto) Urine Creatinine Urine Total Protein Phenytoin Coronavirus (PCR) Crossmatch 08/07/20 08/07/20 05:44 06:00 WBC RBC Hgb Hct MCHC RDW Lymph % (Auto) [place] % (Auto) Eos % (Auto) Lymph # [place] # Lymph # (Auto) [place] # (Auto) Eos # (Auto) Seg Neutrophils % Seg Neuts % (Manual) Lymphocytes % (Manual) Seg Neutrophils # Seg Neutrophils # Man Lymphocytes # (Manual) Monocytes % (Manual) Eosinophils % (Manual) Monocytes # (Manual) Eosinophils # (Manual) D-Dimer Heparin Anti-Xa Level ABG pH POC ABG pCO2 POC ABG pO2 ABG pO2 ABG HCO3 ABG O2 Saturation ABG Base Excess ABG Hemoglobin ABG Oxyhemoglobin VBG pH ABG Sodium ABG Potassium ABG Glucose Oxyhemoglobin Sodium 132 L Potassium 3.3 L Chloride 92.8 L Carbon Dioxide BUN 64 H Creatinine 2.4 H Glucose POC Glucose 58 L Lactic Acid Calcium 7.0 L Ferritin AST Alkaline Phosphatase Magnesium Lactate Dehydrogenase Total Creatine Kinase CK-MB (CK-2) C-Reactive Protein Total Protein Albumin Troponin T HDL Cholesterol Arterial Blood Glucose Urine WBC (Auto) Urine Creatinine Urine Total Protein Phenytoin Coronavirus (PCR) Crossmatch Chest x-ray: pending Allied health notes reviewed: nursing
--- NOTE | 2020-08-07 14:59 | Progress Note ---
Assessment and Plan --Acute hypoxemic respiratory failure; vent dependent intubated on admission, extubated on 06/12/20 then placed on high flow o2 patient developed another respiratory arrest on 06/26 - reintubated Patient not tolerating weaning parameters CC following, Surgery evaluated the patient for trach and PEG COVID-19 test positive x3, trach and PEG pending -- Hypertension; well controlled Continue amlodipine, clonidine and hydralazine and minoxidil, closely monitor blood pressures PRN labetalol --s/p cardiopulmonary arrest on admission, 06/26 and 07/01, EF 45-50% on 2d echo, medical Mx per cardiology --Bradycardia Patient is on dopamine and epinephrine for bradycardia beta-hugh discontinued, Heart rate is in the 60s to 70s --Anoxic brain injury, neurology consulted, neuro requested MRI brain, EEG MRI brain could not be done due to body habitus, --Seizures seizure precautions; continue Keppra, and Dilantin EEG showed epileptiform discharges per review of neurology note --Rectal bleeding; resolved --Acute blood loss anemia; total 4 units PRBC transfused monitor H&H, GI following, no plans of endoscopy --Severe sepsis; completed antibiotics per ID persistently positive for COVID-19 and treated for Klebsiella pneumoniae --COVID-19 b/l PNA Completed remdesivir on 06/02 Completed dexamethasone - Last dose 06/07 COVID 19 test positive x 3 during this admission --Superficial left cephalic vein DVT/elevated D-dimers[COVID 19] Patient initially started on heparin drip from 05/29/20 D-dimers improved [phone] treated with Eliquis 5 mg twice a day for 1 week[per ID] stop date 06/26/2020 -- Acute toxic metabolic encephalopathy, POA likely from sepsis and s/p cardiac arrest with possible anoxic injury -- Acute renal failure: Worsening BUN/creatinine 123/3.4 > 105/3.1 avoid nephrotoxins, Nephrology note reviewed Status post right femoral vascular catheter placement started on hemodialysis Discussed with Dr. Koehler --Klebsiella pneumonia: ID evaluated completed second round of 5 days of cefepime on 07/04/2020 --Acute on chronic systolic heart failure Cardiology following. Ef 45% --Transaminitis. Etiology likely from COVID-19. cont to monitor --Hyperkalemia; improved --Hyponatremia Monitor electrolytes, now on HD --Shock; resolved -- DVT prophylaxis Eliquis, SCD to bilateral lower extremities while in bed -- Advance care planning Patient is critically ill with multiple medical problems Poor prognosis, family updated and patient is full code per family request The high probability of a clinically significant, sudden or life threatening deterioration of the [[employer], CVS, renal] system(s) required my full and direct attention, intervention and personal management. The aggregate critical care time was [34] minutes. This time is in addition to time spent performing reported procedures but includes the following: [x] Data Review and interpretation [x] Patient assessment and monitoring of vital signs [x] Documentation [x] Medication orders and management Brief History: 64 YO Female with a medical history of HTN, Diastolic CHF, Pulmonary HTN, DM, Obesity Hypoventilation Syndrome presents to ED for evaluation of shortness of breath. As per staff, the EMS was notified for difficulty breathing. Upon arrival to the patient's home the patient was found to be in distress and was subsequently transported to [facility] for further evaluation and care. In route to [facility] the patient developed cardiac arrest and was treated in accordance with ACLS protocol with return of ROSC. Patient was seen and evaluated in the emergency department and was intubated and placed on ventilatory support. Patient admitted to ICU. Critical care team consulted in ED. She was found to have COVID-19 infection and was started on steroids and remdesivir. ID was consulted. Cardiology was consulted for her systolic heart failure and cardiac arrest. Patient completed treatment for COVID-19, then develop superimposed bacterial pneumonia with Klebsiella. She is now extubated, 06/12/2020 but remains confused and requiring high flow O2 and intermittent BiPAP. Patient had another cardiac arrest reintubated 06/26/2020, currently in ICU vent dependent, unable to do trach and PEG due to persistent COVID-19 positive state, as well as anoxic brain injury, unable to get MRI , neurology following. 05/28/2020 COVID-19 test positive 06/29/2020 COVID-19 test positive 07/14/2020 COVID-19 test positive 06/01. Patient remains intubated and on ventilatory support today. Patient has multiple organ system failure and has poor prognosis. Patient did not experien ce significant medical decompensation overnight but no improvement with current therapy. 06/02. Remains intubated. her BP is elevated. Started on nicardipine drip. Cardiology following. 06/03-06/04. BP is better. Hb stable. Completed remdesivir. ID , Cardiology and Critical care team on board 06/05. Bump in creatinine. I/O reviewed. Nephrology consulted. 06/06. Has slight improvement in renal function. Nephrology on board. On SBT today. Vitals stable. 06/07. Stable renal function. No need for HD as per nephrology. She is making urine. Plan for SBT. 06/08. Off sedation and very lethargic. Her BUN is going up - effect of steroids vs GI bleed. Her hemoglobin remains stable. Will check stool guaiac. Nephrology is following. WBC bumped to 16 today. 06/09: remains intubated, wbc trended up, Cr slightly trending down. cont TF, wean off vent as tolerated. 06/10: Cr trending down, cont to wean off vent as tolerated. 06/10; Cr much improved, cont iv fluid, tolerating tube feeding. stopped vac, iv cefepime for total 10 days. 06/11; creatinine 1.5 today, sodium level has normalized. Continue tube feeding, continue cefepime for 10 days. Continue to wean off as tolerated. 06/12: planned for extubation today 06/13: extubated yesterday, now on Bipap 06/14: patient on Bipap, remains on TF, restraint. cont to follow clinically 06/15: patient on high flow O2,remains on TF, restraint. cont to follow clinicall y. transfer to [facility] 06/16: Patient remains on high flow O2, intermittently on BiPAP. Tolerating tube feeding. cont to monitor at [facility] 06/17; patient on BiPAP. Remains confused and on tube feeding. Continue to monitor at [facility]. Wean off O2 as tolerated. 06/18; patient feels slightly better on high flow oxygen, minimally communicative, stable to be transferred out of [facility] to telemetry 06/20; remains hypoxic on high flow oxygen, today noncommunicative sleeping all the time, vital signs noted 06/21; more alert and awake confused at times and pulling, restraint for safety, on high flow oxygen We will request physical therapy once more stable 06/22; PT unable to assess due to safety concerns, remains hypoxic on high flow oxygen, BiPAP at night. minimally communicative 06/23: Remains on high flow O2, order for speech eval, continue tube feeding. Creatinine noted to be elevated today -2.4, increase IV fluid hydration. 06/24: Kidney function started worsening 06/23 -likely from hypotension. patient had episodes of hypotension on 06/22. Kidney function is unchanged from yesterday. No further episodes of hypotension. Follow-up electrolytes and renal function. patient remains on high flow O2 06/25: patient on 15L o2 with n/c. on Bipap at night. follow renal function and follow bmp . Placement not possible as patient unfunded. wean off o2 as tolerated. 06/26: hb 6.9 today, transfuse one unit. wean off from O2 as tolerated. check stool for occult blood. consult GI if stool is positive for blood. 06/27; Code blue called yesterday. ACLS initiated, Pt found to have Asystolic Arrest with eventual return of perfusing cardiac rhythm. patient reintubated during code, transferred to ICU, called family and updated 06/28: Patient is spiking fever, started on empiric antibiotic, ordered blood urine and sputum culture. We will reconsult ID. Discussed with patient's son in the evening. Family wants to continue full CODE STATUS. Discussed with critical care attending and RN in length. 06/29: Repeat COVID-19 test is positive. Patient remains on ventilator, continue tube feeding diet. Renal function stable, H&H stable. GI recommendation appreciated -no plan for endoscopy now as there is no active bleeding. 06/30: Renal function improving, patient remains positive for COVID. Tolerating tube feeding, wean off vent as tolerated. Patient remains with poor prognosis but 07/01: Remains intubated, continue to wean off as tolerated, continue antibiotic for Klebsiella pneumoniae. COVID-19 reordered on 06/29 and came as positive. ID following, pulmonary critical care following. Poor prognosis, family wants to continue full code. 07/05; patient has significant drop in H&H, hemoglobin today is 6.9, heme positive stool, type and cross transfuse 2 units of PRBC GI following, no plans of endoscopy 07/06; status post 2 units PRBC transfusion yesterday, Hb improved to 7.7. Monitor H&H transfuse additional PRBC as needed Remains intubated on vent, wean as tolerated and extubate 07/07; Hb dropped to 7.7-6.8, no new episodes of bleeding, transfuse additional 1 unit PRBC today Closely monitor H&H, worsening renal function, hyperkalemia, calcium chloride Kayexalate, gentle hydration, reconsult nephrology 07/08: Patient not tolerating weaning parameters, if unable to wean may need trach and PEG, patient critically ill poor prognosis 07/09; patient remains intubated, trial of CPAP, will closely monitor wean as tolerated and extubate, 07/10: Remains intubated, wean as tolerated and extubate, if unable to wean may need trach and PEG 07/11/2020. Patient currently on mechanical ventilation AC/PRVC with rate of 12, tidal volume 450, FiO2 30% and PEEP of 6 07/12/2020. Patient placed on CPAP with pressure support of 10 and tolerating well. Continue PSB trials as tolerated. 07/13/2020. Patient currently with AC mode rate 12, tidal volume 450, FiO2 30% and PEEP of 6. Surgery has been consulted for trach and PEG placement. Recall nephrology for renal insufficiency. 07/14/20; surgery evaluated for trach and PEG , pending call with test which is is positive today COVID-19 test positive x3 since admission 07/16; trach and PEG pending neuro evaluation 07/17; vent dependent, trach PEG pending neuro evaluation, pending MRI EEG study[already ordered] 07/18; unable to do MRI, due to body habitus, morbid obesity, radiology consult Patient critically ill very poor prognosis 07/19; remains intubated on vent, clinically no change 07/20; unable to wean, needs trach and PEG, need MRI , unable to do due to body habitus 07/21; clinically no change, remains intubated on ventilatory support 07/22; I recommend family meeting, to discuss the goals of treatment, discussed with case management 07/23; patient's blood pressures in the lower range, will hold antihypertensives, fluid bolus, if no improvement Levophed per protocol 07/24: Patient remains critically ill, unable to obtain MRI at this facility and unstable for transfer, Will reconsult Nephrology as creatinine now worse, with worsening Hypotension and Hyperkalemia- Overnight the patient required pressors Secondary to Hypotension, Will place PICC line. Will give kayxalate, continue to hold all BP meds. Hyponatermia improving. 07/24; patient remains to critically ill, nephrology consult appreciated, creatinine is worsening. Hypotension resolved with. Still patient is hypernatremic 07/26; patient is hypertensive and her blood pressure medications were resumed and as needed medications also started. Patient is being followed by nephrology for hyponatremia and AVANI. Patient has anemia. We will check labs in the [facility]. 07/27; patient is still intubated and on mechanical ventilation. Followed by pulmonary critical care. Nephrology is considering to dialyze the patient after discussing with the family. 07/28; patient is intubated and on mechanical ventilation, patient is nonresponsive without pressors. Creatinine is trending up and nephrology is considering to dialysis. I called her son Toño at [phone] and discussed about the prognosis of the patient and I gave the option of hospice care/withdraw care and he said he is going to talk to his sister and will get back to me. 07/29/2020;patient is intubated and on mechanical ventilation, patient is nonresponsive without pressors. Creatinine is trending up and nephrology is considering to dialysis. I called her son Toño on 07/28 at [phone] and discussed about the prognosis of the patient and I gave the option of hospice care/withdraw care and he said he is going to talk to his sister and will get back to me. Nephrology discussed with the son this morning and the son said he want aggressive management and she is going to be started on dialysis. 07/30; patient's son wants hospice. Declined dialysis. 07/31; plan was to send the patient to hospice but her son does not want to sign AND. Family declined dialysis. Going to talk to the son. 08/01; plans to send the patient to hospice. Patient does not want to sign AND. We called him back but he did not answer. 08/02 intubated, unresponsive, all interdisciplinary notes reviewed, apparently patient's family opted for dialysis, all interdisciplinary notes reviewed 08/03 remains intubated, unresponsive, status post right femoral vein vascular catheter placement, scheduled for hemodialysis today, lab results reviewed. Patient's NG tube feedings are on hold as the patient apparently developed emesis with questionable fecal odor. Patient is now on NG tube to low intermittent suction. 08/04: TF on hold. CT abdomen/pelvis yesterday showed no obstruction, cont to monitor. follow BMP, HD as needed 08/05: plan to resume TF, discussed with nephrology - plan to continue HD temporarily. cont to monitor BMP. patient remains unresponsive, family wish to continue aggressive care and full code status 08/06: started on TF at low rate, cont supportive care. CM to arrange family meeting to address goal of care with family. Subjective Date of service: 08/06/20 Principal diagnosis: Ac hypoxemic resp failure; COVID-19; pneumonia; CHF; Pulm HTN; OHS; DM II Interval history: Patient seen and examined Vitals reviewed, intubated, remains unresponsive Discussed with RN at the bedside Objective - Exam Narrative Exam: General appearance: Present: obese (Morbidly obese), other (intubated) - EENT Eyes: No congestion or icterus - Neck Neck: Present: supple, normal ROM - Respiratory Respiratory effort: normal Respiratory: bilateral: diminished, rhonchi, negative: rales, wheezing - Cardiovascular Rhythm: regular Heart Sounds: Present: S1 & S2 - Extremities Extremities: no ischemia, No edema - Abdominal General gastrointestinal: soft, non-tender, obese, normal bowel sounds - Integumentary Integumentary: Present: clear, warm - Psychiatric Psychiatric: other (intubated) - Neurologic Neurologic: other (intubated), unresponsive - Constitutional Vitals: Vital Signs - 12hr 08/07/20 08/07/20 08/07/20 03:00 03:16 03:30 Temperature Pulse Rate 68 70 91 H Pulse Rate [ From Monitor] Respiratory 14 18 14 Rate Blood Pressure 139/58 148/55 155/84 O2 Sat by Pulse 98 97 94 Oximetry O2 Sat by Pulse Oximetry [ Anterior Bilateral Throughout] 08/07/20 08/07/20 08/07/20 03:41 03:46 04:00 Temperature 99.9 F H Pulse Rate 68 68 Pulse Rate [ 69 From Monitor] Respiratory 14 15 Rate Blood Pressure 136/42 139/44 O2 Sat by Pulse 97 97 Oximetry O2 Sat by Pulse Oximetry [ Anterior Bilateral Throughout] 08/07/20 08/07/20 08/07/20 04:15 04:26 04:30 Temperature Pulse Rate 68 68 68 Pulse Rate [ From Monitor] Respiratory 21 20 Rate Blood Pressure 146/53 146/53 149/51 O2 Sat by Pulse 96 98 98 Oximetry O2 Sat by Pulse Oximetry [ Anterior Bilateral Throughout] 08/07/20 08/07/20 08/07/20 04:45 05:00 05:15 Temperature Pulse Rate 67 67 70 Pulse Rate [ From Monitor] Respiratory 20 15 18 Rate Blood Pressure 142/49 144/49 136/59 O2 Sat by Pulse 98 97 96 Oximetry O2 Sat by Pulse Oximetry [ Anterior Bilateral Throughout] 08/07/20 08/07/20 08/07/20 05:30 05:45 06:00 Temperature Pulse Rate 67 67 66 Pulse Rate [ 68 From Monitor] Respiratory 13 16 23 Rate Blood Pressure 141/52 146/48 146/48 O2 Sat by Pulse 97 98 98 Oximetry O2 Sat by Pulse Oximetry [ Anterior Bilateral Throughout] 08/07/20 08/07/20 08/07/20 06:16 06:30 06:45 Temperature Pulse Rate 69 67 67 Pulse Rate [ From Monitor] Respiratory 17 15 14 Rate Blood Pressure 155/52 136/48 139/52 O2 Sat by Pulse 97 97 98 Oximetry O2 Sat by Pulse Oximetry [ Anterior Bilateral Throughout] 08/07/20 08/07/20 08/07/20 07:00 07:15 07:30 Temperature Pulse Rate 66 65 68 Pulse Rate [ From Monitor] Respiratory 16 16 17 Rate Blood Pressure 140/50 141/51 148/54 O2 Sat by Pulse 97 98 98 Oximetry O2 Sat by Pulse Oximetry [ Anterior Bilateral Throughout] 08/07/20 08/07/20 08/07/20 07:45 08:00 08:16 Temperature 98.1 F Pulse Rate 70 70 69 Pulse Rate [ 69 From Monitor] Respiratory 17 14 13 Rate Blood Pressure 158/57 168/63 160/53 O2 Sat by Pulse 98 97 97 Oximetry O2 Sat by Pulse Oximetry [ Anterior Bilateral Throughout] 08/07/20 08/07/20 08/07/20 08:30 08:34 08:45 Temperature Pulse Rate 67 66 67 Pulse Rate [ From Monitor] Respiratory 15 14 Rate Blood Pressure 140/48 140/48 152/56 O2 Sat by Pulse 98 98 99 Oximetry O2 Sat by Pulse Oximetry [ Anterior Bilateral Throughout] 08/07/20 08/07/20 08/07/20 09:00 09:15 09:30 Temperature Pulse Rate 67 65 66 Pulse Rate [ From Monitor] Respiratory 14 13 16 Rate Blood Pressure 154/55 154/53 155/59 O2 Sat by Pulse 98 98 97 Oximetry O2 Sat by Pulse Oximetry [ Anterior Bilateral Throughout] 08/07/20 08/07/20 08/07/20 09:45 10:00 10:15 Temperature Pulse Rate 66 67 68 Pulse Rate [ 69 From Monitor] Respiratory 15 12 17 Rate Blood Pressure 160/53 145/52 142/48 O2 Sat by Pulse 97 96 97 Oximetry O2 Sat by Pulse Oximetry [ Anterior Bilateral Throughout] 08/07/20 08/07/20 08/07/20 10:30 10:40 10:45 Temperature Pulse Rate 70 65 71 Pulse Rate [ From Monitor] Respiratory 16 20 Rate Blood Pressure 146/49 142/58 156/51 O2 Sat by Pulse 97 97 Oximetry O2 Sat by Pulse Oximetry [ Anterior Bilateral Throughout] 08/07/20 08/07/20 08/07/20 11:00 11:15 11:30 Temperature Pulse Rate 71 73 73 Pulse Rate [ From Monitor] Respiratory 17 18 21 Rate Blood Pressure 160/55 170/50 174/53 O2 Sat by Pulse 98 97 96 Oximetry O2 Sat by Pulse Oximetry [ Anterior Bilateral Throughout] 08/07/20 08/07/20 08/07/20 11:45 12:00 12:04 Temperature 99.1 F Pulse Rate 73 71 74 Pulse Rate [ 75 From Monitor] Respiratory 14 16 Rate Blood Pressure 157/58 159/55 159/55 O2 Sat by Pulse 97 97 98 Oximetry O2 Sat by Pulse Oximetry [ Anterior Bilateral Throughout] 08/07/20 08/07/20 08/07/20 12:15 12:25 12:30 Temperature 98.5 F Pulse Rate 73 73 72 Pulse Rate [ From Monitor] Respiratory 14 Rate Blood Pressure 160/54 159/50 172/54 O2 Sat by Pulse 97 Oximetry O2 Sat by Pulse 98 Oximetry [ Anterior Bilateral Throughout] 08/07/20 08/07/20 08/07/20 12:31 12:45 12:46 Temperature Pulse Rate 72 73 72 Pulse Rate [ From Monitor] Respiratory 16 18 Rate Blood Pressure 159/50 156/52 156/52 O2 Sat by Pulse 98 98 Oximetry O2 Sat by Pulse Oximetry [ Anterior Bilateral Throughout] 08/07/20 08/07/20 08/07/20 13:00 13:15 13:16 Temperature Pulse Rate 75 77 77 Pulse Rate [ From Monitor] Respiratory 16 15 Rate Blood Pressure 156/54 145/52 145/52 O2 Sat by Pulse 97 97 Oximetry O2 Sat by Pulse Oximetry [ Anterior Bilateral Throughout] 08/07/20 08/07/20 08/07/20 13:30 13:45 14:00 Temperature Pulse Rate 75 77 74 Pulse Rate [ 80 From Monitor] Respiratory 22 17 15 Rate Blood Pressure 153/56 158/62 166/53 O2 Sat by Pulse 97 97 97 Oximetry O2 Sat by Pulse Oximetry [ Anterior Bilateral Throughout] 08/07/20 08/07/20 08/07/20 14:15 14:30 14:31 Temperature Pulse Rate 76 82 81 Pulse Rate [ From Monitor] Respiratory 21 12 Rate Blood Pressure 174/59 164/68 164/68 O2 Sat by Pulse 97 96 Oximetry O2 Sat by Pulse Oximetry [ Anterior Bilateral Throughout] 08/07/20 14:45 Temperature Pulse Rate 80 Pulse Rate [ From Monitor] Respiratory Rate Blood Pressure 157/58 O2 Sat by Pulse Oximetry O2 Sat by Pulse Oximetry [ Anterior Bilateral Throughout] - Labs CBC & Chem 7: 08/07/20 04:40 08/07/20 06:00 Labs: Abnormal lab results 08/07/20 08/07/20 08/07/20 Range/Units 04:40 05:44 06:00 RBC 2.48 L (3.65-5.03) M/mm3 Hgb 7.4 L (10.1-14.3) gm/dl Hct 22.1 L (30.3-42.9) % RDW 18.1 H (13.2-15.2) % Lymph % (Auto) 11.7 L (13.4-35.0) % Bent % (Auto) 8.6 H (0.0-7.3) % Lymph # (Auto) 0.9 L (1.2-5.4) K/mm3 Seg Neutrophils % 76.1 H (40.0-70.0) % Sodium 132 L (137-145) mmol/L Potassium 3.3 L (3.6-5.0) mmol/L Chloride 92.8 L (98-107) mmol/L BUN 64 H (7-17) mg/dL Creatinine 2.4 H (0.6-1.2) mg/dL POC Glucose 58 L (70-105) mg/dL Calcium 7.0 L (8.4-10.2) mg/dL HEART Score - HEART Score Troponin: Troponin T 0.067 ng/mL (0.00-0.029) H 07/01/20 06:01
--- NOTE | 2020-08-07 15:56 | Progress Note ---
Assessment and Plan - Patient Problems (1) Acute kidney injury (AVANI) with acute tubular necrosis (ATN) Current Visit: Yes Status: Acute Plan to address problem: Improved volume status with HD. Will discontinue HD after today's treatment, will hold HD over the weekend and monitor renal parameters. volume control with IV lasix 80mg bid. Patient is a poor candidate for snf HD, given her overall poor prognosis, anoxic brain injury s/p cardiac arrest. If no signs of renal recovery seen and volume status/azotemia worsens, recommend hospice. discu ssed further goals of care with family in the care conference with daughter, son (over the phone), primary attending, case management and RN. (2) Pneumonia due to COVID-19 virus Current Visit: Yes Status: Acute Plan to address problem: Patient has completed course of Remdesevir. Completed course of steroids. (3) Acute hypoxemic respiratory failure Current Visit: Yes Status: Acute Plan to address problem: Being managed by pulmonary. S/p Extubation 06/12. Back on respirator. Continue management by pulmonary/critical care (4) Cardiac arrest Current Visit: Yes Status: Acute Plan to address problem: s/p ACLS with eventual ROSC (5) Cardiomyopathy Current Visit: No Status: Acute Qualifiers: Cardiomyopathy type: unspecified Qualified Code(s): I42.9 - Cardiomyopathy, unspecified Plan to address problem: Patient has peripheral edema. Has not responded to Bumex infusion. cont HD for volume control (6) Type 2 diabetes mellitus with diabetic chronic kidney disease Current Visit: Yes Status: Acute Plan to address problem: Blood sugar management by primary attending (7) Hyponatremia Current Visit: Yes Status: Acute Plan to address problem: likely hypervolemic nature, to correct volume status with HD Subjective Date of service: 08/07/20 Principal diagnosis: Ac hypoxemic resp failure; COVID-19; pneumonia; CHF; Pulm HTN; OHS; DM II Interval history: Pt remains on vent support. unresponsive. daughter at bedside, care conference done with daughter, Dr Allan, pension fund manager regarding goals of care Objective - Exam Narrative Exam: I did not do physical exam at the bedside due to PPE conservation with the current COVID-19 pandemic. - Vital Signs Vital signs: Vital Signs - 12hr 08/07/20 08/07/20 08/07/20 04:00 04:15 04:26 Temperature Pulse Rate 68 68 68 Pulse Rate [ 69 From Monitor] Respiratory 15 21 Rate Blood Pressure 139/44 146/53 146/53 O2 Sat by Pulse 97 96 98 Oximetry O2 Sat by Pulse Oximetry [ Anterior Bilateral Throughout] 08/07/20 08/07/20 08/07/20 04:30 04:45 05:00 Temperature Pulse Rate 68 67 67 Pulse Rate [ From Monitor] Respiratory 20 20 15 Rate Blood Pressure 149/51 142/49 144/49 O2 Sat by Pulse 98 98 97 Oximetry O2 Sat by Pulse Oximetry [ Anterior Bilateral Throughout] 08/07/20 08/07/20 08/07/20 05:15 05:30 05:45 Temperature Pulse Rate 70 67 67 Pulse Rate [ From Monitor] Respiratory 18 13 16 Rate Blood Pressure 136/59 141/52 146/48 O2 Sat by Pulse 96 97 98 Oximetry O2 Sat by Pulse Oximetry [ Anterior Bilateral Throughout] 08/07/20 08/07/20 08/07/20 06:00 06:16 06:30 Temperature Pulse Rate 66 69 67 Pulse Rate [ 68 From Monitor] Respiratory 23 17 15 Rate Blood Pressure 146/48 155/52 136/48 O2 Sat by Pulse 98 97 97 Oximetry O2 Sat by Pulse Oximetry [ Anterior Bilateral Throughout] 08/07/20 08/07/20 08/07/20 06:45 07:00 07:15 Temperature Pulse Rate 67 66 65 Pulse Rate [ From Monitor] Respiratory 14 16 16 Rate Blood Pressure 139/52 140/50 141/51 O2 Sat by Pulse 98 97 98 Oximetry O2 Sat by Pulse Oximetry [ Anterior Bilateral Throughout] 08/07/20 08/07/20 08/07/20 07:30 07:45 08:00 Temperature 98.1 F Pulse Rate 68 70 70 Pulse Rate [ 69 From Monitor] Respiratory 17 17 14 Rate Blood Pressure 148/54 158/57 168/63 O2 Sat by Pulse 98 98 97 Oximetry O2 Sat by Pulse Oximetry [ Anterior Bilateral Throughout] 08/07/20 08/07/20 08/07/20 08:16 08:30 08:34 Temperature Pulse Rate 69 67 66 Pulse Rate [ From Monitor] Respiratory 13 15 Rate Blood Pressure 160/53 140/48 140/48 O2 Sat by Pulse 97 98 98 Oximetry O2 Sat by Pulse Oximetry [ Anterior Bilateral Throughout] 08/07/20 08/07/20 08/07/20 08:45 09:00 09:15 Temperature Pulse Rate 67 67 65 Pulse Rate [ From Monitor] Respiratory 14 14 13 Rate Blood Pressure 152/56 154/55 154/53 O2 Sat by Pulse 99 98 98 Oximetry O2 Sat by Pulse Oximetry [ Anterior Bilateral Throughout] 08/07/20 08/07/20 08/07/20 09:30 09:45 10:00 Temperature Pulse Rate 66 66 67 Pulse Rate [ 69 From Monitor] Respiratory 16 15 12 Rate Blood Pressure 155/59 160/53 145/52 O2 Sat by Pulse 97 97 96 Oximetry O2 Sat by Pulse Oximetry [ Anterior Bilateral Throughout] 08/07/20 08/07/20 08/07/20 10:15 10:30 10:40 Temperature Pulse Rate 68 70 65 Pulse Rate [ From Monitor] Respiratory 17 16 Rate Blood Pressure 142/48 146/49 142/58 O2 Sat by Pulse 97 97 Oximetry O2 Sat by Pulse Oximetry [ Anterior Bilateral Throughout] 08/07/20 08/07/20 08/07/20 10:45 11:00 11:15 Temperature Pulse Rate 71 71 73 Pulse Rate [ From Monitor] Respiratory 20 17 18 Rate Blood Pressure 156/51 160/55 170/50 O2 Sat by Pulse 97 98 97 Oximetry O2 Sat by Pulse Oximetry [ Anterior Bilateral Throughout] 08/07/20 08/07/20 08/07/20 11:30 11:45 12:00 Temperature 99.1 F Pulse Rate 73 73 71 Pulse Rate [ 75 From Monitor] Respiratory 21 14 16 Rate Blood Pressure 174/53 157/58 159/55 O2 Sat by Pulse 96 97 97 Oximetry O2 Sat by Pulse Oximetry [ Anterior Bilateral Throughout] 08/07/20 08/07/20 08/07/20 12:04 12:15 12:25 Temperature 98.5 F Pulse Rate 74 73 73 Pulse Rate [ From Monitor] Respiratory 14 Rate Blood Pressure 159/55 160/54 159/50 O2 Sat by Pulse 98 97 Oximetry O2 Sat by Pulse 98 Oximetry [ Anterior Bilateral Throughout] 08/07/20 08/07/20 08/07/20 12:30 12:31 12:45 Temperature Pulse Rate 72 72 73 Pulse Rate [ From Monitor] Respiratory 16 18 Rate Blood Pressure 172/54 159/50 156/52 O2 Sat by Pulse 98 98 Oximetry O2 Sat by Pulse Oximetry [ Anterior Bilateral Throughout] 08/07/20 08/07/20 08/07/20 12:46 13:00 13:15 Temperature Pulse Rate 72 75 77 Pulse Rate [ From Monitor] Respiratory 16 15 Rate Blood Pressure 156/52 156/54 145/52 O2 Sat by Pulse 97 97 Oximetry O2 Sat by Pulse Oximetry [ Anterior Bilateral Throughout] 08/07/20 08/07/20 08/07/20 13:16 13:30 13:45 Temperature Pulse Rate 77 75 77 Pulse Rate [ From Monitor] Respiratory 22 17 Rate Blood Pressure 145/52 153/56 158/62 O2 Sat by Pulse 97 97 Oximetry O2 Sat by Pulse Oximetry [ Anterior Bilateral Throughout] 08/07/20 08/07/20 08/07/20 14:00 14:15 14:30 Temperature Pulse Rate 74 76 82 Pulse Rate [ 80 From Monitor] Respiratory 15 21 12 Rate Blood Pressure 166/53 174/59 164/68 O2 Sat by Pulse 97 97 96 Oximetry O2 Sat by Pulse Oximetry [ Anterior Bilateral Throughout] 08/07/20 08/07/20 08/07/20 14:31 14:45 15:00 Temperature Pulse Rate 81 80 75 Pulse Rate [ From Monitor] Respiratory Rate Blood Pressure 164/68 157/58 147/55 O2 Sat by Pulse Oximetry O2 Sat by Pulse Oximetry [ Anterior Bilateral Throughout] 08/07/20 08/07/20 08/07/20 15:15 15:25 15:41 Temperature 98.5 F Pulse Rate 74 76 76 Pulse Rate [ From Monitor] Respiratory 15 Rate Blood Pressure 159/55 169/57 169/57 O2 Sat by Pulse Oximetry O2 Sat by Pulse 98 Oximetry [ Anterior Bilateral Throughout] - Lab 08/07/20 04:40 08/07/20 06:00 Most recent lab results ABG pH 7.344 pH Units (7.350-7.450) L 08/02/20 11:25 ABG pCO2 39.0 mm Hg 08/02/20 11:25 ABG pO2 101.1 mm Hg (80.0-90.0) H 08/02/20 11:25 ABG HCO3 20.8 mmol/L (20.0-26.0) 08/02/20 11:25 ABG O2 Saturation 97.5 % (95.0-99.0) 08/02/20 11:25 Calcium 7.0 mg/dL (8.4-10.2) L 08/07/20 06:00 Magnesium 2.70 mg/dL (1.7-2.3) H 07/28/20 04:30 Urine Creatinine 33.3 mg/dL (0.1-20.0) H 07/06/20 13:20 Urine Sodium 21 mmol/L 07/06/20 13:20 Urine Total Protein 196 mg/dL (5-11.8) H 06/06/20 04:00 Medications & Allergies - Medications Allergies/Adverse Reactions: Allergies No Known Allergies Allergy (Verified 01/21/20 12:28) Home Medications: Home Medications Medication Instructions Recorded Confirmed Last Taken Type AtorvaSTATin [Lipitor] 20 mg PO QHS 05/12/20 05/29/20 Unknown History lisinopriL [Zestril TAB] 40 mg PO QDAY 05/12/20 05/29/20 Unknown History metFORMIN [Glucophage] 850 mg PO BID 05/12/20 05/29/20 Unknown History Acetaminophen [Acetaminophen TAB] 650 mg PO Q4H PRN tablet 05/13/20 05/29/20 Unknown Rx Dicyclomine [Bentyl] 20 mg PO BID #20 tablet 05/13/20 05/29/20 Unknown Rx Famotidine [Pepcid] 20 mg PO BID #30 tablet 05/13/20 05/29/20 Unknown Rx carvediloL [Coreg] 6.25 mg PO BID #60 05/13/20 05/29/20 Unknown Rx Active Medications: Generic Name Dose Route Start Last Admin Trade Name Freq PRN Reason Stop Dose Admin Acetaminophen 650 mg 06/09/20 10:57 06/29/20 21:18 Tylenol FEEDTUBE 650 mg Q6H PRN Administration Fever >101 Amlodipine Besylate 10 mg 06/02/20 11:00 08/07/20 10:40 Amlodipine PO Not Given DAILY NELSON Lipase/Protease/Amylase 1 each 05/29/20 13:39 07/07/20 10:36 Pancremu Lawson 10,500 Unit FEEDTUBE 1 each PRN PRN Administration For Clogged Feeding Tube Epoetin Javon 10,000 unit 07/29/20 11:29 08/07/20 13:18 Procrit IV 10,000 unit SCOTTY PRN Administration hemodialysis Glycopyrrolate 2 mg 06/09/20 14:00 08/07/20 08:49 Glycopyrrolate PO 2 mg TID NELSON Administration Heparin Sodium (Porcine) 5,000 unit 06/30/20 14:00 08/07/20 06:05 Heparin SUB-Q 5,000 unit Q8HR NELSON Administration Heparin Sodium (Porcine) 5,000 unit 07/29/20 11:29 08/02/20 23:15 Heparin IV 5,000 unit SCOTTY PRN Administration hemodialysis Hydralazine HCl 100 mg 07/14/20 14:00 08/07/20 08:50 Apresoline PO 100 mg TID NELSON Administration Hydrophilic Ointment 1 applic 05/28/20 13:49 Vaseline Lip Therapy TP Q2HR PRN Dry Lips Norepinephrine 4 mg in 250 mls @ 7.5 mls/hr 07/23/20 20:00 08/05/20 05:21 Levophed Drip 4 Mg/Ns 250 Ml IV 0 mcg/min TITR NELSON 0 mls/hr Titration Protocol 2 MCG/MIN Levetiracetam 1,000 mg/ 110 mls @ 400 mls/hr 08/03/20 10:00 08/07/20 09:50 Dextrose IV 400 mls/hr Q12HR NELSON Administration Phenytoin 150 mg/ Sodium 103 mls @ 408 mls/hr 08/03/20 09:00 08/07/20 06:02 Chloride IV 408 mls/hr Q8HR NELSON Administration Dextrose/Sodium Chloride 1,000 mls @ 50 mls/hr 08/04/20 18:00 08/07/20 03:00 D5/0.45ns IV 50 mls/hr DIRECT NELSON Administration Sodium Chloride 100 mls @ 999 mls/hr 08/04/20 22:27 Nacl 0.9% IV SCOTTY PRN Hypotension Insulin Glargine 10 units 06/08/20 22:00 08/06/20 22:46 Lantus SUB-Q 10 units QHS NELSON Administration Insulin Human Lispro 0 unit 05/29/20 18:00 08/07/20 12:44 Humalog SUB-Q Not Given Q6H [facility] Protocol Labetalol HCl 20 mg 06/03/20 09:00 07/31/20 12:14 Labetalol IV 20 mg Q4H PRN Administration HYPERTENSION Minoxidil 5 mg 07/21/20 10:00 08/07/20 10:41 Loniten PO Not Given BID NELSON Multi-Ingred Cream/Lotion/Oil/Oint 1 applic 05/28/20 13:49 Artificial Tears Ophth Oint OU Q4HR PRN Dry Eye(s) Ondansetron HCl 4 mg 06/02/20 09:00 06/09/20 16:48 Zofran IV 4 mg Q8H PRN Administration Nausea And Vomiting Pantoprazole Sodium 40 mg 08/03/20 10:00 08/07/20 09:50 Protonix IV 40 mg QDAY NELSON Administration Senna 17.6 mg 06/03/20 10:00 08/07/20 09:49 Senokot FEEDTUBE 17.6 mg BID NELSON Administration Simple Syrup 15 ml 05/29/20 13:39 Simple Syrup FEEDTUBE PRN PRN Hypoglycemia Simple Syrup 30 ml 05/29/20 13:39 Simple Syrup FEEDTUBE PRN PRN Hypoglycemia Sodium Bicarbonate 325 mg 05/29/20 13:39 07/07/20 10:36 Sodium Bicarbonate FEEDTUBE 325 mg PRN PRN Administration For Clogged Feeding Tube Sodium Chloride 10 ml 05/28/20 22:00 08/07/20 09:50 Sodium Chloride Flush Syringe 10 Ml IV 10 ml BID NELSON Administration Sodium Chloride 10 ml 05/28/20 19:08 06/16/20 17:50 Sodium Chloride Flush Syringe 10 Ml IV 10 ml PRN PRN Administration LINE FLUSH
--- NOTE | 2020-08-07 20:49 | Progress Note ---
Assessment and Plan --Acute hypoxemic respiratory failure; vent dependent intubated on admission, extubated on 06/12/20 then placed on high flow o2 patient developed another respiratory arrest on 06/26 - reintubated Patient not tolerating weaning parameters CC following, Surgery evaluated the patient for trach and PEG COVID-19 test positive x3, trach and PEG pending -- Hypertension; well controlled Continue amlodipine, clonidine and hydralazine and minoxidil, closely monitor blood pressures PRN labetalol --s/p cardiopulmonary arrest on admission, 06/26 and 07/01, EF 45-50% on 2d echo, medical Mx per cardiology --Bradycardia Patient is on dopamine and epinephrine for bradycardia beta-hugh discontinued, Heart rate is in the 60s to 70s --Anoxic brain injury, neurology consulted, neuro requested MRI brain, EEG MRI brain could not be done due to body habitus, --Seizures seizure precautions; continue Keppra, and Dilantin EEG showed epileptiform discharges per review of neurology note --Rectal bleeding; resolved --Acute blood loss anemia; total 4 units PRBC transfused monitor H&H, GI following, no plans of endoscopy --Severe sepsis; completed antibiotics per ID persistently positive for COVID-19 and treated for Klebsiella pneumoniae --COVID-19 b/l PNA Completed remdesivir on 06/02 Completed dexamethasone - Last dose 06/07 COVID 19 test positive x 3 during this admission --Superficial left cephalic vein DVT/elevated D-dimers[COVID 19] Patient initially started on heparin drip from 05/29/20 D-dimers improved [phone] treated with Eliquis 5 mg twice a day for 1 week[per ID] stop date 06/26/2020 -- Acute toxic metabolic encephalopathy, POA likely from sepsis and s/p cardiac arrest with possible anoxic injury -- Acute renal failure: Worsening BUN/creatinine 123/3.4 > 105/3.1 avoid nephrotoxins, Nephrology note reviewed Status post right femoral vascular catheter placement started on hemodialysis Discussed with Dr. Koehler --Klebsiella pneumonia: ID evaluated completed second round of 5 days of cefepime on 07/04/2020 --Acute on chronic systolic heart failure Cardiology following. Ef 45% --Transaminitis. Etiology likely from COVID-19. cont to monitor --Hyperkalemia; improved --Hyponatremia Monitor electrolytes, now on HD --Shock; resolved -- DVT prophylaxis Eliquis, SCD to bilateral lower extremities while in bed -- Advance care planning Patient is critically ill with multiple medical problems Poor prognosis, family updated and patient is full code per family request The high probability of a clinically significant, sudden or life threatening deterioration of the [RN HOSPICE, CVS, renal] system(s) required my full and direct attention, intervention and personal management. The aggregate critical care time was [34] minutes. This time is in addition to time spent performing reported procedures but includes the following: [x] Data Review and interpretation [x] Patient assessment and monitoring of vital signs [x] Documentation [x] Medication orders and management Brief History: 64 YO Female with a medical history of HTN, Diastolic CHF, Pulmonary HTN, DM, Obesity Hypoventilation Syndrome presents to ED for evaluation of shortness of breath. As per staff, the EMS was notified for difficulty breathing. Upon arrival to the patient's home the patient was found to be in distress and was subsequently transported to [facility] for further evaluation and care. In route to [facility] the patient developed cardiac arrest and was treated in accordance with ACLS protocol with return of ROSC. Patient was seen and evaluated in the emergency department and was intubated and placed on ventilatory support. Patient admitted to ICU. Critical care team consulted in ED. She was found to have COVID-19 infection and was started on steroids and remdesivir. ID was consulted. Cardiology was consulted for her systolic heart failure and cardiac arrest. Patient completed treatment for COVID-19, then develop superimposed bacterial pneumonia with Klebsiella. She is now extubated, 06/12/2020 but remains confused and requiring high flow O2 and intermittent BiPAP. Patient had another cardiac arrest reintubated 06/26/2020, currently in ICU vent dependent, unable to do trach and PEG due to persistent COVID-19 positive state, as well as anoxic brain injury, unable to get MRI , neurology following. 05/28/2020 COVID-19 test positive 06/29/2020 COVID-19 test positive 07/14/2020 COVID-19 test positive 06/01. Patient remains intubated and on ventilatory support today. Patient has multiple organ system failure and has poor prognosis. Patient did not experien ce significant medical decompensation overnight but no improvement with current therapy. 06/02. Remains intubated. her BP is elevated. Started on nicardipine drip. Cardiology following. 06/03-06/04. BP is better. Hb stable. Completed remdesivir. ID , Cardiology and Critical care team on board 06/05. Bump in creatinine. I/O reviewed. Nephrology consulted. 06/06. Has slight improvement in renal function. Nephrology on board. On SBT today. Vitals stable. 06/07. Stable renal function. No need for HD as per nephrology. She is making urine. Plan for SBT. 06/08. Off sedation and very lethargic. Her BUN is going up - effect of steroids vs GI bleed. Her hemoglobin remains stable. Will check stool guaiac. Nephrology is following. WBC bumped to 16 today. 06/09: remains intubated, wbc trended up, Cr slightly trending down. cont TF, wean off vent as tolerated. 06/10: Cr trending down, cont to wean off vent as tolerated. 06/10; Cr much improved, cont iv fluid, tolerating tube feeding. stopped vac, iv cefepime for total 10 days. 06/11; creatinine 1.5 today, sodium level has normalized. Continue tube feeding, continue cefepime for 10 days. Continue to wean off as tolerated. 06/12: planned for extubation today 06/13: extubated yesterday, now on Bipap 06/14: patient on Bipap, remains on TF, restraint. cont to follow clinically 06/15: patient on high flow O2,remains on TF, restraint. cont to follow clinicall y. transfer to [facility] 06/16: Patient remains on high flow O2, intermittently on BiPAP. Tolerating tube feeding. cont to monitor at [facility] 06/17; patient on BiPAP. Remains confused and on tube feeding. Continue to monitor at [facility]. Wean off O2 as tolerated. 06/18; patient feels slightly better on high flow oxygen, minimally communicative, stable to be transferred out of [facility] to telemetry 06/20; remains hypoxic on high flow oxygen, today noncommunicative sleeping all the time, vital signs noted 06/21; more alert and awake confused at times and pulling, restraint for safety, on high flow oxygen We will request physical therapy once more stable 06/22; PT unable to assess due to safety concerns, remains hypoxic on high flow oxygen, BiPAP at night. minimally communicative 06/23: Remains on high flow O2, order for speech eval, continue tube feeding. Creatinine noted to be elevated today -2.4, increase IV fluid hydration. 06/24: Kidney function started worsening 06/23 -likely from hypotension. patient had episodes of hypotension on 06/22. Kidney function is unchanged from yesterday. No further episodes of hypotension. Follow-up electrolytes and renal function. patient remains on high flow O2 06/25: patient on 15L o2 with n/c. on Bipap at night. follow renal function and follow bmp . Placement not possible as patient unfunded. wean off o2 as tolerated. 06/26: hb 6.9 today, transfuse one unit. wean off from O2 as tolerated. check stool for occult blood. consult GI if stool is positive for blood. 06/27; Code blue called yesterday. ACLS initiated, Pt found to have Asystolic Arrest with eventual return of perfusing cardiac rhythm. patient reintubated during code, transferred to ICU, called family and updated 06/28: Patient is spiking fever, started on empiric antibiotic, ordered blood urine and sputum culture. We will reconsult ID. Discussed with patient's son in the evening. Family wants to continue full CODE STATUS. Discussed with critical care attending and RN in length. 06/29: Repeat COVID-19 test is positive. Patient remains on ventilator, continue tube feeding diet. Renal function stable, H&H stable. GI recommendation appreciated -no plan for endoscopy now as there is no active bleeding. 06/30: Renal function improving, patient remains positive for COVID. Tolerating tube feeding, wean off vent as tolerated. Patient remains with poor prognosis but 07/01: Remains intubated, continue to wean off as tolerated, continue antibiotic for Klebsiella pneumoniae. COVID-19 reordered on 06/29 and came as positive. ID following, pulmonary critical care following. Poor prognosis, family wants to continue full code. 07/05; patient has significant drop in H&H, hemoglobin today is 6.9, heme positive stool, type and cross transfuse 2 units of PRBC GI following, no plans of endoscopy 07/06; status post 2 units PRBC transfusion yesterday, Hb improved to 7.7. Monitor H&H transfuse additional PRBC as needed Remains intubated on vent, wean as tolerated and extubate 07/07; Hb dropped to 7.7-6.8, no new episodes of bleeding, transfuse additional 1 unit PRBC today Closely monitor H&H, worsening renal function, hyperkalemia, calcium chloride Kayexalate, gentle hydration, reconsult nephrology 07/08: Patient not tolerating weaning parameters, if unable to wean may need trach and PEG, patient critically ill poor prognosis 07/09; patient remains intubated, trial of CPAP, will closely monitor wean as tolerated and extubate, 07/10: Remains intubated, wean as tolerated and extubate, if unable to wean may need trach and PEG 07/11/2020. Patient currently on mechanical ventilation AC/PRVC with rate of 12, tidal volume 450, FiO2 30% and PEEP of 6 07/12/2020. Patient placed on CPAP with pressure support of 10 and tolerating well. Continue PSB trials as tolerated. 07/13/2020. Patient currently with AC mode rate 12, tidal volume 450, FiO2 30% and PEEP of 6. Surgery has been consulted for trach and PEG placement. Recall nephrology for renal insufficiency. 07/14/20; surgery evaluated for trach and PEG , pending call with test which is is positive today COVID-19 test positive x3 since admission 07/16; trach and PEG pending neuro evaluation 07/17; vent dependent, trach PEG pending neuro evaluation, pending MRI EEG study[already ordered] 07/18; unable to do MRI, due to body habitus, morbid obesity, radiology consult Patient critically ill very poor prognosis 07/19; remains intubated on vent, clinically no change 07/20; unable to wean, needs trach and PEG, need MRI , unable to do due to body habitus 07/21; clinically no change, remains intubated on ventilatory support 07/22; I recommend family meeting, to discuss the goals of treatment, discussed with case management 07/23; patient's blood pressures in the lower range, will hold antihypertensives, fluid bolus, if no improvement Levophed per protocol 07/24: Patient remains critically ill, unable to obtain MRI at this facility and unstable for transfer, Will reconsult Nephrology as creatinine now worse, with worsening Hypotension and Hyperkalemia- Overnight the patient required pressors Secondary to Hypotension, Will place PICC line. Will give kayxalate, continue to hold all BP meds. Hyponatermia improving. 07/24; patient remains to critically ill, nephrology consult appreciated, creatinine is worsening. Hypotension resolved with. Still patient is hypernatremic 07/26; patient is hypertensive and her blood pressure medications were resumed and as needed medications also started. Patient is being followed by nephrology for hyponatremia and AVANI. Patient has anemia. We will check labs in the [facility]. 07/27; patient is still intubated and on mechanical ventilation. Followed by pulmonary critical care. Nephrology is considering to dialyze the patient after discussing with the family. 07/28; patient is intubated and on mechanical ventilation, patient is nonresponsive without pressors. Creatinine is trending up and nephrology is considering to dialysis. I called her son Toño at [phone] and discussed about the prognosis of the patient and I gave the option of hospice care/withdraw care and he said he is going to talk to his sister and will get back to me. 07/29/2020;patient is intubated and on mechanical ventilation, patient is nonresponsive without pressors. Creatinine is trending up and nephrology is considering to dialysis. I called her son Toño on 07/28 at [phone] and discussed about the prognosis of the patient and I gave the option of hospice care/withdraw care and he said he is going to talk to his sister and will get back to me. Nephrology discussed with the son this morning and the son said he want aggressive management and she is going to be started on dialysis. 07/30; patient's son wants hospice. Declined dialysis. 07/31; plan was to send the patient to hospice but her son does not want to sign AND. Family declined dialysis. Going to talk to the son. 08/01; plans to send the patient to hospice. Patient does not want to sign AND. We called him back but he did not answer. 08/02 intubated, unresponsive, all interdisciplinary notes reviewed, apparently patient's family opted for dialysis, all interdisciplinary notes reviewed 08/03 remains intubated, unresponsive, status post right femoral vein vascular catheter placement, scheduled for hemodialysis today, lab results reviewed. Patient's NG tube feedings are on hold as the patient apparently developed emesis with questionable fecal odor. Patient is now on NG tube to low intermittent suction. 08/04: TF on hold. CT abdomen/pelvis yesterday showed no obstruction, cont to monitor. follow BMP, HD as needed 08/05: plan to resume TF, discussed with nephrology - plan to continue HD temporarily. cont to monitor BMP. patient remains unresponsive, family wish to continue aggressive care and full code status 08/06: started on TF at low rate, cont supportive care. CM to arrange family meeting to address goal of care with family. 08/07: discussed with daughter and son in a family meeting with nephrology, CM, RN and admission specialist. patient has very poor prognosis and recommended hospice by nephrology and by me, family will discuss the option for hospice among themselves again. cont supportive care for now. Subjective Date of service: 08/07/20 Principal diagnosis: Ac hypoxemic resp failure; COVID-19; pneumonia; CHF; Pulm H TN; OHS; DM II Interval history: Patient seen and examined Vitals reviewed, intubated, remains unresponsive Discussed with RN at the bedside discussed with daughter and son in a family meeting with nephrology, CM, RN and admission specialist Objective - Exam Narrative Exam: General appearance: Present: obese (Morbidly obese), other (intubated) - EENT Eyes: No congestion or icterus - Neck Neck: Present: supple, normal ROM - Respiratory Respiratory effort: normal Respiratory: bilateral: diminished, rhonchi, negative: rales, wheezing - Cardiovascular Rhythm: regular Heart Sounds: Present: S1 & S2 - Extremities Extremities: no ischemia, No edema - Abdominal General gastrointestinal: soft, non-tender, obese, normal bowel sounds - Integumentary Integumentary: Present: clear, warm - Psychiatric Psychiatric: other (intubated) - Neurologic Neurologic: other (intubated), unresponsive - Constitutional Vitals: Vital Signs - 12hr 08/07/20 08/07/20 08/07/20 09:00 09:15 09:30 Temperature Pulse Rate 67 65 66 Pulse Rate [ From Monitor] Respiratory 14 13 16 Rate Blood Pressure 154/55 154/53 155/59 O2 Sat by Pulse 98 98 97 Oximetry O2 Sat by Pulse Oximetry [ Anterior Bilateral Throughout] 08/07/20 08/07/20 08/07/20 09:45 10:00 10:15 Temperature Pulse Rate 66 67 68 Pulse Rate [ 69 From Monitor] Respiratory 15 12 17 Rate Blood Pressure 160/53 145/52 142/48 O2 Sat by Pulse 97 96 97 Oximetry O2 Sat by Pulse Oximetry [ Anterior Bilateral Throughout] 08/07/20 08/07/20 08/07/20 10:30 10:40 10:45 Temperature Pulse Rate 70 65 71 Pulse Rate [ From Monitor] Respiratory 16 20 Rate Blood Pressure 146/49 142/58 156/51 O2 Sat by Pulse 97 97 Oximetry O2 Sat by Pulse Oximetry [ Anterior Bilateral Throughout] 08/07/20 08/07/20 08/07/20 11:00 11:15 11:30 Temperature Pulse Rate 71 73 73 Pulse Rate [ From Monitor] Respiratory 17 18 21 Rate Blood Pressure 160/55 170/50 174/53 O2 Sat by Pulse 98 97 96 Oximetry O2 Sat by Pulse Oximetry [ Anterior Bilateral Throughout] 08/07/20 08/07/20 08/07/20 11:45 12:00 12:04 Temperature 99.1 F Pulse Rate 73 71 74 Pulse Rate [ 75 From Monitor] Respiratory 14 16 Rate Blood Pressure 157/58 159/55 159/55 O2 Sat by Pulse 97 97 98 Oximetry O2 Sat by Pulse Oximetry [ Anterior Bilateral Throughout] 08/07/20 08/07/20 08/07/20 12:15 12:25 12:30 Temperature 98.5 F Pulse Rate 73 73 72 Pulse Rate [ From Monitor] Respiratory 14 Rate Blood Pressure 160/54 159/50 172/54 O2 Sat by Pulse 97 Oximetry O2 Sat by Pulse 98 Oximetry [ Anterior Bilateral Throughout] 08/07/20 08/07/20 08/07/20 12:31 12:45 12:46 Temperature Pulse Rate 72 73 72 Pulse Rate [ From Monitor] Respiratory 16 18 Rate Blood Pressure 159/50 156/52 156/52 O2 Sat by Pulse 98 98 Oximetry O2 Sat by Pulse Oximetry [ Anterior Bilateral Throughout] 08/07/20 08/07/20 08/07/20 13:00 13:15 13:16 Temperature Pulse Rate 75 77 77 Pulse Rate [ From Monitor] Respiratory 16 15 Rate Blood Pressure 156/54 145/52 145/52 O2 Sat by Pulse 97 97 Oximetry O2 Sat by Pulse Oximetry [ Anterior Bilateral Throughout] 08/07/20 08/07/20 08/07/20 13:30 13:45 14:00 Temperature Pulse Rate 75 77 74 Pulse Rate [ 80 From Monitor] Respiratory 22 17 15 Rate Blood Pressure 153/56 158/62 166/53 O2 Sat by Pulse 97 97 97 Oximetry O2 Sat by Pulse Oximetry [ Anterior Bilateral Throughout] 08/07/20 08/07/20 08/07/20 14:15 14:30 14:31 Temperature Pulse Rate 76 82 81 Pulse Rate [ From Monitor] Respiratory 21 12 Rate Blood Pressure 174/59 164/68 164/68 O2 Sat by Pulse 97 96 Oximetry O2 Sat by Pulse Oximetry [ Anterior Bilateral Throughout] 08/07/20 08/07/20 08/07/20 14:45 15:00 15:15 Temperature Pulse Rate 77 76 77 Pulse Rate [ From Monitor] Respiratory 17 14 15 Rate Blood Pressure 157/58 147/55 159/55 O2 Sat by Pulse 97 96 97 Oximetry O2 Sat by Pulse Oximetry [ Anterior Bilateral Throughout] 08/07/20 08/07/20 08/07/20 15:25 15:30 15:41 Temperature 98.5 F Pulse Rate 76 77 76 Pulse Rate [ From Monitor] Respiratory 15 15 Rate Blood Pressure 169/57 169/57 169/57 O2 Sat by Pulse 97 Oximetry O2 Sat by Pulse 98 Oximetry [ Anterior Bilateral Throughout] 08/07/20 08/07/20 08/07/20 15:45 16:00 16:15 Temperature 99 F Pulse Rate 76 74 74 Pulse Rate [ 75 From Monitor] Respiratory 16 20 16 Rate Blood Pressure 160/61 155/54 163/61 O2 Sat by Pulse 97 97 97 Oximetry O2 Sat by Pulse Oximetry [ Anterior Bilateral Throughout] 08/07/20 08/07/20 08/07/20 16:30 16:45 17:00 Temperature Pulse Rate 72 72 72 Pulse Rate [ From Monitor] Respiratory 16 17 20 Rate Blood Pressure 158/46 149/50 157/58 O2 Sat by Pulse 97 98 97 Oximetry O2 Sat by Pulse Oximetry [ Anterior Bilateral Throughout] 08/07/20 08/07/20 08/07/20 17:15 17:30 17:45 Temperature Pulse Rate 73 72 72 Pulse Rate [ From Monitor] Respiratory 18 12 15 Rate Blood Pressure 161/53 162/54 159/60 O2 Sat by Pulse 98 97 97 Oximetry O2 Sat by Pulse Oximetry [ Anterior Bilateral Throughout] 08/07/20 08/07/20 08/07/20 18:00 18:15 18:30 Temperature Pulse Rate 72 71 74 Pulse Rate [ 72 From Monitor] Respiratory 17 13 16 Rate Blood Pressure 157/60 151/57 158/64 O2 Sat by Pulse 97 97 98 Oximetry O2 Sat by Pulse Oximetry [ Anterior Bilateral Throughout] 08/07/20 08/07/20 08/07/20 18:45 19:00 20:00 Temperature 98 F Pulse Rate 76 74 Pulse Rate [ From Monitor] Respiratory 20 17 Rate Blood Pressure 162/55 157/58 O2 Sat by Pulse 98 97 Oximetry O2 Sat by Pulse Oximetry [ Anterior Bilateral Throughout] 08/07/20 20:16 Temperature Pulse Rate 72 Pulse Rate [ From Monitor] Respiratory Rate Blood Pressure 161/53 O2 Sat by Pulse 98 Oximetry O2 Sat by Pulse Oximetry [ Anterior Bilateral Throughout] - Labs CBC & Chem 7: 08/07/20 04:40 08/07/20 06:00 Labs: Abnormal lab results 08/07/20 08/07/20 08/07/20 Range/Units 04:40 05:44 06:00 RBC 2.48 L (3.65-5.03) M/mm3 Hgb 7.4 L (10.1-14.3) gm/dl Hct 22.1 L (30.3-42.9) % RDW 18.1 H (13.2-15.2) % Lymph % (Auto) 11.7 L (13.4-35.0) % [place] % (Auto) 8.6 H (0.0-7.3) % Lymph # (Auto) 0.9 L (1.2-5.4) K/mm3 Seg Neutrophils % 76.1 H (40.0-70.0) % Sodium 132 L (137-145) mmol/L Potassium 3.3 L (3.6-5.0) mmol/L Chloride 92.8 L (98-107) mmol/L BUN 64 H (7-17) mg/dL Creatinine 2.4 H (0.6-1.2) mg/dL POC Glucose 58 L (70-105) mg/dL Calcium 7.0 L (8.4-10.2) mg/dL HEART Score - HEART Score Troponin: Troponin T 0.067 ng/mL (0.00-0.029) H 07/01/20 06:01
[2020-08-07] MEDS: INSULIN GLARGINE 100 UNITS/ML SUB-Q SCH (21:10)
[2020-08-08] MEDS: INSULIN LISPRO 100 UNIT/ML VIAL 3 mL SUB-Q SCH ×4 (00:19→17:29)
[2020-08-08] MEDS: HEPARIN 5,000 UNIT/1 ML VIAL SUB-Q SCH ×3 (06:22→22:15)
[2020-08-08] MEDS: SODIUM CHLORIDE 0.9% IV SCH ×3 (06:22→22:09)
[2020-08-08] MEDS: PHENYTOIN IV SCH ×3 (06:22→22:09)
[2020-08-08] MEDS: hydrALAZINE 100 MG TAB PO SCH ×4 (09:00→19:57)
[2020-08-08] MEDS: GLYCOPYRROLATE 2 MG TAB PO SCH ×3 (09:10→19:55)
[2020-08-08] MEDS: SENNOSIDES ORAL LIQD 8.8 MG/5 ML ORAL LIQD FEEDTUBE SCH (10:30)
[2020-08-08] MEDS: MINOXIDIL 2.5 MG TAB PO SCH ×2 (10:31→22:16)
[2020-08-08] MEDS: amLODIPine 10 MG TAB PO SCH (10:31)
[2020-08-08] MEDS: levETIRAcetam 1,000 MG in DEXTROSE 5% IN WATER 100 ML IV SCH (10:31)
[2020-08-08] MEDS: LANSOPRAZOLE 30 MG SOLUTAB FEEDTUBE SCH (10:33)
--- NOTE | 2020-08-08 11:05 | Progress Note ---
Assessment and Plan Cardiopulmonary arrest 06/26/2020 with ROSC Acute hypoxemic respiratory failure , extubated now re-intubated Anemia s/p PRBC Severe COVID infection Multifocal pneumonia Morbid obesity Acute toxic metabolic encephalopathy AVANI secondary to COVID/vasomotor nephropathy Bilateral pulmonary edema. Bilateral pleural effusions. History of congestive heart failure. History of pulmonary hypertension. History of hypertension. Diabetes. Obesity hypoventilation syndrome. Oropharyngeal dysphagia Non convulsive status -CXR, ABG as clinically indicated -Continue to trend temperature curve and WCC -Continue daily SBTs as tolerated, her mental status precludes liberation from MVS Plan for removal of trialysis catheter per Renal, will place on high dose diuretics and monitor closely -Supportive transfusions to keep HgB >7g/dL as indicated -Continue supportive care -Continue to avoid nephrotoxins, closely monitor renal function, dose all medications for renal function -COVID positive, trach /PEG on hold - VAP bundle addressed -Aspiration precautions, HOB >40 -lung protective strategies-ARDS. net - continue bronchodilators with pulmonary hygiene per RT - wean per pulmonary driven protocols otherwise - continue to avoid benzodiazepines, reduce the possibility of delirium - prn analgesia per CPOT score - Continue to wean supplemental oxygen for target O2 sats > 92% -Continue to hold sedation, if needed intermittent dosing - conservative fluid management measures as tolerated by hemodynamics and renal function - Bronchodilators with pulmonary hygiene per RT - Accuchecks with glycemic control per SSI (While critically ill target blood glucose of 140-180 mg/dL; avoid hypoglycemia) - Maintenance of sleep-wake cycle, avoid delirium - Aspiration precautions, HOB >40 - Stress ulcer prophylaxis -Famotidine - Mobility protocol, off loading and skin assessment for pressure ulcer prevention COVID SPECIFIC INTERVENTIONS -Airborne, contact isolation for COVID per facility protocols - s/p Remdesivir -IV steroids-Dexamethasone -Trend d-dimer,and other inflammatory markers per facility protocol -Convalescent plasma therapy per facility protocol -Continue all supportive care Discussed with the ICU team-RT,RN, Clincal pharmacist and case management Life threatening condition- Cardiopulmonary arrest with ROSC, Sepsis ;COVID 19 acute hypoxemic respiratory failure on MVS Mortality/Morbidity- High Complexity of medical decision making- High CONDITION: CRITICAL PROGNOSIS: GUARDED-POOR CODE STATUS: FULL CODE The high probability of a clinically significant, sudden or life-threatening deterioration of the [respiratory & neurology, renal ] system(s) required my full and direct attention, intervention and personal management. The aggregate critical care time was [32] minutes without overlap. Time includes spent on; [x] Data Review and interpretation [x] Patient assessment and monitoring of vital signs [x] Documentation [x] Medication orders and management Subjective Date of service: 08/08/20 Principal diagnosis: Ac hypoxemic resp failure; COVID-19; pneumonia; CHF; Pulm HTN; OHS; DM II Interval history: Patient is seen today for: Ac hypoxemic resp failure s/p Cardiopulmonary arrest with ROSC; Coronavirus-19 infection; pneumonia; Pulmonary edema; Bilateral pleural effusions; CHF; Morbid obesity; pulmonary hypertension; OHS; DM II Seen and examined at bedside; 24hour events reviewed; nursing and respiratory care staff consulted; Vitals, labs,medications, chart reviewed. Remains on MVS, no fevers, Mental status changes persist,[place], did not tolerate PSV trials this morning, had desaturations with low spontaneous tidal volumes Tolerating tube feedings, HD per Renal Objective Vital Signs - 12hr 08/07/20 08/07/20 08/07/20 23:15 23:30 23:42 Temperature Pulse Rate 80 81 81 Pulse Rate [ From Monitor] Respiratory 16 17 Rate Blood Pressure 148/46 150/51 150/51 O2 Sat by Pulse 97 98 98 Oximetry 08/07/20 08/07/20 08/08/20 23:45 23:47 00:00 Temperature 97.5 F L Pulse Rate 81 81 84 Pulse Rate [ 80 From Monitor] Respiratory 17 16 16 Rate Blood Pressure 151/52 151/52 141/45 O2 Sat by Pulse 98 98 97 Oximetry 08/08/20 08/08/20 08/08/20 00:15 00:31 00:45 Temperature Pulse Rate 85 82 81 Pulse Rate [ From Monitor] Respiratory 16 17 15 Rate Blood Pressure 151/54 143/45 137/53 O2 Sat by Pulse 97 98 97 Oximetry 08/08/20 08/08/20 08/08/20 01:00 01:15 01:31 Temperature Pulse Rate 82 85 82 Pulse Rate [ From Monitor] Respiratory 17 27 H 21 Rate Blood Pressure 153/57 153/57 198/63 O2 Sat by Pulse 97 97 Oximetry 08/08/20 08/08/20 08/08/20 01:45 02:00 02:15 Temperature Pulse Rate 81 81 79 Pulse Rate [ From Monitor] Respiratory 17 15 15 Rate Blood Pressure 198/63 134/51 134/51 O2 Sat by Pulse 99 98 Oximetry 08/08/20 08/08/20 08/08/20 02:31 02:45 03:01 Temperature Pulse Rate 79 80 79 Pulse Rate [ From Monitor] Respiratory 15 17 16 Rate Blood Pressure 134/51 134/51 135/51 O2 Sat by Pulse 99 98 98 Oximetry 08/08/20 08/08/20 08/08/20 03:15 03:31 03:45 Temperature Pulse Rate 80 77 77 Pulse Rate [ From Monitor] Respiratory 16 15 18 Rate Blood Pressure 130/61 130/61 130/61 O2 Sat by Pulse 98 98 98 Oximetry 08/08/20 08/08/20 08/08/20 04:00 04:01 04:13 Temperature 98.2 F Pulse Rate 75 77 Pulse Rate [ 77 From Monitor] Respiratory 18 15 Rate Blood Pressure 129/53 O2 Sat by Pulse 98 97 Oximetry 08/08/20 08/08/20 08/08/20 04:15 04:31 04:45 Temperature Pulse Rate 77 76 77 Pulse Rate [ From Monitor] Respiratory 17 15 17 Rate Blood Pressure 129/53 129/53 129/53 O2 Sat by Pulse 98 98 98 Oximetry 08/08/20 08/08/20 08/08/20 04:58 05:01 05:15 Temperature Pulse Rate 78 77 77 Pulse Rate [ From Monitor] Respiratory 16 15 Rate Blood Pressure 129/53 130/48 130/48 O2 Sat by Pulse 98 98 98 Oximetry 08/08/20 08/08/20 08/08/20 05:31 05:45 06:01 Temperature Pulse Rate 77 78 78 Pulse Rate [ From Monitor] Respiratory 18 15 18 Rate Blood Pressure 130/48 130/48 132/47 O2 Sat by Pulse 98 98 98 Oximetry 08/08/20 08/08/20 08/08/20 06:15 06:31 06:45 Temperature Pulse Rate 78 79 75 Pulse Rate [ From Monitor] Respiratory 15 18 14 Rate Blood Pressure 132/47 132/47 132/47 O2 Sat by Pulse 98 98 97 Oximetry 08/08/20 08/08/20 08/08/20 07:01 07:15 07:31 Temperature Pulse Rate 76 76 75 Pulse Rate [ From Monitor] Respiratory 15 17 15 Rate Blood Pressure 138/51 138/51 138/51 O2 Sat by Pulse 98 98 98 Oximetry 08/08/20 08/08/20 08/08/20 07:45 08:00 08:01 Temperature 98.4 F Pulse Rate 77 78 78 Pulse Rate [ From Monitor] Respiratory 18 18 Rate Blood Pressure 138/51 139/59 O2 Sat by Pulse 98 97 98 Oximetry 08/08/20 08/08/20 08/08/20 08:15 08:26 08:31 Temperature Pulse Rate 76 77 76 Pulse Rate [ From Monitor] Respiratory 15 15 Rate Blood Pressure 139/59 138/59 139/59 O2 Sat by Pulse 97 98 97 Oximetry 08/08/20 08/08/20 08/08/20 08:40 08:45 09:01 Temperature Pulse Rate 77 78 76 Pulse Rate [ From Monitor] Respiratory 19 20 18 Rate Blood Pressure 131/48 139/59 131/48 O2 Sat by Pulse 97 99 97 Oximetry 08/08/20 08/08/20 08/08/20 09:15 09:31 09:45 Temperature Pulse Rate 75 78 77 Pulse Rate [ From Monitor] Respiratory 18 22 19 Rate Blood Pressure 131/48 131/48 131/48 O2 Sat by Pulse 97 97 97 Oximetry 08/08/20 08/08/20 08/08/20 10:01 10:15 10:31 Temperature Pulse Rate 78 80 80 Pulse Rate [ From Monitor] Respiratory 22 21 Rate Blood Pressure 119/47 119/47 119/47 O2 Sat by Pulse 98 96 Oximetry Constitutional: appears uncomfortable, other (elderly looking female with mildly increased resp effort at rest) Eyes: non-icteric ENT: oropharynx dry, other (ETT 23-24 cm AYAN) Neck: supple, no lymphadenopathy, no JVD Effort: mildly labored Ascultation: Bilateral: clear, diminished breath sounds, rales, rhonchi Percussion: Bilateral: not dull Cardiovascular: regular rate and rhythm, other (S1,S2) Gastrointestinal: normoactive bowel sounds, soft, non-tender, non-distended Integumentary: rash, other (Right femoral trialysis catheter) Extremities: no cyanosis, pink and warm, pulses normal, no ischemia or pet echiae, edema (pedal and peripheral ), anasarca Neurologic: unable to assess, other (lethargic to obtunded) Psychiatric: other (unable to assess re: AMS) CBC and BMP: 10/31/20 15:00 08/09/20 05:05 ABG, PT/INR, D-dimer: ABG ABG pH 7.344 pH Units (7.350-7.450) L 08/02/20 11:25 POC ABG pCO2 44.1 mmHg (32.0-48.0) 07/18/20 04:24 ABG pCO2 39.0 mm Hg 08/02/20 11:25 POC ABG pO2 86.8 mmHg (83-108) 07/18/20 04:24 ABG pO2 101.1 mm Hg (80.0-90.0) H 08/02/20 11:25 POC ABG HCO3 25.6 07/18/20 04:24 ABG O2 Saturation 97.5 % (95.0-99.0) 08/02/20 11:25 PT/INR, D-dimer PT 14.2 Sec. (12.2-14.9) 05/29/20 15:10 INR 1.08 (0.87-1.13) 05/29/20 15:10 D-Dimer 2310.15 ng/mlDDU (0-234) H 06/29/20 14:45 Abnormal lab findings: Abnormal Labs 05/28/20 05/28/20 05/28/20 13:29 13:47 13:47 WBC RBC Hgb Hct MCHC RDW 15.3 H Lymph % (Auto) [place] % (Auto) Eos % (Auto) Lymph # [place] # Lymph # (Auto) [place] # (Auto) Eos # (Auto) Seg Neutrophils % Seg Neuts % (Manual) Lymphocytes % (Manual) Seg Neutrophils # Seg Neutrophils # Man Lymphocytes # (Manual) Monocytes % (Manual) Eosinophils % (Manual) Monocytes # (Manual) Eosinophils # (Manual) D-Dimer Heparin Anti-Xa Level ABG pH POC ABG pCO2 POC ABG pO2 ABG pO2 ABG HCO3 ABG O2 Saturation ABG Base Excess ABG Hemoglobin ABG Oxyhemoglobin VBG pH ABG Sodium ABG Potassium ABG Glucose Oxyhemoglobin Sodium Potassium 6.6 H* Chloride 109.2 H Carbon Dioxide 17 L BUN 29 H Creatinine 1.3 H Glucose 265 H POC Glucose 248 H Lactic Acid Calcium 8.1 L Ferritin AST 63 H Alkaline Phosphatase Magnesium Lactate Dehydrogenase Total Creatine Kinase 301 H CK-MB (CK-2) 4.3 H C-Reactive Protein Total Protein 5.4 L Albumin 2.6 L Troponin T HDL Cholesterol Arterial Blood Glucose Urine WBC (Auto) Urine Creatinine Urine Total Protein Phenytoin Coronavirus (PCR) Crossmatch 05/28/20 05/28/20 05/28/20 13:47 13:47 14:46 WBC RBC Hgb Hct MCHC RDW Lymph % (Auto) [place] % (Auto) Eos % (Auto) Lymph # [place] # Lymph # (Auto) [place] # (Auto) Eos # (Auto) Seg Neutrophils % Seg Neuts % (Manual) Lymphocytes % (Manual) Seg Neutrophils # Seg Neutrophils # Man Lymphocytes # (Manual) Monocytes % (Manual) Eosinophils % (Manual) Monocytes # (Manual) Eosinophils # (Manual) D-Dimer Heparin Anti-Xa Level ABG pH POC ABG pCO2 POC ABG pO2 ABG pO2 ABG HCO3 ABG O2 Saturation ABG Base Excess ABG Hemoglobin ABG Oxyhemoglobin VBG pH 7.152 L* ABG Sodium ABG Potassium ABG Glucose Oxyhemoglobin Sodium Potassium 7.2 H* Chloride Carbon Dioxide BUN Creatinine Glucose POC Glucose Lactic Acid 3.40 H* Calcium Ferritin AST Alkaline Phosphatase Magnesium Lactate Dehydrogenase Total Creatine Kinase CK-MB (CK-2) C-Reactive Protein Total Protein Albumin Troponin T HDL Cholesterol Arterial Blood Glucose Urine WBC (Auto) Urine Creatinine Urine Total Protein Phenytoin Coronavirus (PCR) Crossmatch 05/28/20 05/28/20 05/28/20 15:33 15:33 15:51 WBC RBC Hgb Hct MCHC RDW Lymph % (Auto) [place] % (Auto) Eos % (Auto) Lymph # [place] # Lymph # (Auto) [place] # (Auto) Eos # (Auto) Seg Neutrophils % Seg Neuts % (Manual) Lymphocytes % (Manual) Seg Neutrophils # Seg Neutrophils # Man Lymphocytes # (Manual) Monocytes % (Manual) Eosinophils % (Manual) Monocytes # (Manual) Eosinophils # (Manual) D-Dimer 8780.43 H Heparin Anti-Xa Level ABG pH 7.284 L POC ABG pCO2 POC ABG pO2 ABG pO2 273.0 H ABG HCO3 ABG O2 Saturation 99.4 H ABG Base Excess -6.1 L ABG Hemoglobin 17.2 H ABG Oxyhemoglobin VBG pH ABG Sodium ABG Potassium ABG Glucose Oxyhemoglobin Sodium Potassium Chloride Carbon Dioxide BUN Creatinine Glucose 152 H POC Glucose Lactic Acid Calcium Ferritin AST Alkaline Phosphatase Magnesium Lactate Dehydrogenase 365 H Total Creatine Kinase CK-MB (CK-2) C-Reactive Protein Total Protein Albumin Troponin T HDL Cholesterol Arterial Blood Glucose Urine WBC (Auto) Urine Creatinine Urine Total Protein Phenytoin Coronavirus (PCR) Crossmatch 05/28/20 05/28/20 05/28/20 16:30 20:41 23:20 WBC RBC Hgb Hct MCHC RDW Lymph % (Auto) [place] % (Auto) Eos % (Auto) Lymph # [place] # Lymph # (Auto) [place] # (Auto) Eos # (Auto) Seg Neutrophils % Seg Neuts % (Manual) Lymphocytes % (Manual) Seg Neutrophils # Seg Neutrophils # Man Lymphocytes # (Manual) Monocytes % (Manual) Eosinophils % (Manual) Monocytes # (Manual) Eosinophils # (Manual) D-Dimer Heparin Anti-Xa Level ABG pH POC ABG pCO2 POC ABG pO2 ABG pO2 ABG HCO3 ABG O2 Saturation ABG Base Excess ABG Hemoglobin ABG Oxyhemoglobin VBG pH ABG Sodium ABG Potassium ABG Glucose Oxyhemoglobin Sodium Potassium Chloride Carbon Dioxide BUN Creatinine Glucose POC Glucose 225 H 224 H Lactic Acid Calcium Ferritin AST Alkaline Phosphatase Magnesium Lactate Dehydrogenase Total Creatine Kinase CK-MB (CK-2) C-Reactive Protein Total Protein Albumin Troponin T HDL Cholesterol Arterial Blood Glucose Urine WBC (Auto) 17.0 H Urine Creatinine Urine Total Protein Phenytoin Coronavirus (PCR) Crossmatch 05/28/20 05/29/20 05/29/20 Unknown 04:35 04:43 WBC RBC 3.48 L Hgb 9.8 L Hct 29.4 L MCHC RDW 16.0 H Lymph % (Auto) 7.4 L [place] % (Auto) Eos % (Auto) Lymph # 0.7 L [place] # Lymph # (Auto) [place] # (Auto) Eos # (Auto) Seg Neutrophils % 89.1 H Seg Neuts % (Manual) Lymphocytes % (Manual) Seg Neutrophils # 8.1 H Seg Neutrophils # Man Lymphocytes # (Manual) Monocytes % (Manual) Eosinophils % (Manual) Monocytes # (Manual) Eosinophils # (Manual) D-Dimer Heparin Anti-Xa Level ABG pH POC ABG pCO2 POC ABG pO2 ABG pO2 ABG HCO3 19.3 L ABG O2 Saturation ABG Base Excess -4.5 L ABG Hemoglobin 9.7 L ABG Oxyhemoglobin VBG pH ABG Sodium ABG Potassium ABG Glucose Oxyhemoglobin Sodium Potassium Chloride Carbon Dioxide BUN Creatinine Glucose POC Glucose Lactic Acid Calcium Ferritin AST Alkaline Phosphatase Magnesium Lactate Dehydrogenase Total Creatine Kinase CK-MB (CK-2) C-Reactive Protein Total Protein Albumin Troponin T HDL Cholesterol Arterial Blood Glucose Urine WBC (Auto) Urine Creatinine Urine Total Protein Phenytoin Coronavirus (PCR) Positive A Crossmatch 05/29/20 05/29/20 05/29/20 04:43 15:10 17:17 WBC RBC Hgb 9.3 L Hct 28.7 L MCHC RDW Lymph % (Auto) [place] % (Auto) Eos % (Auto) Lymph # [place] # Lymph # (Auto) [place] # (Auto) Eos # (Auto) Seg Neutrophils % Seg Neuts % (Manual) Lymphocytes % (Manual) Seg Neutrophils # Seg Neutrophils # Man Lymphocytes # (Manual) Monocytes % (Manual) Eosinophils % (Manual) Monocytes # (Manual) Eosinophils # (Manual) D-Dimer Heparin Anti-Xa Level ABG pH POC ABG pCO2 POC ABG pO2 ABG pO2 ABG HCO3 ABG O2 Saturation ABG Base Excess ABG Hemoglobin ABG Oxyhemoglobin VBG pH ABG Sodium ABG Potassium ABG Glucose Oxyhemoglobin Sodium Potassium Chloride 110.2 H Carbon Dioxide 18 L BUN 32 H Creatinine 1.4 H Glucose 180 H POC Glucose 147 H Lactic Acid Calcium Ferritin AST Alkaline Phosphatase Magnesium Lactate Dehydrogenase Total Creatine Kinase CK-MB (CK-2) C-Reactive Protein Total Protein Albumin Troponin T HDL Cholesterol Arterial Blood Glucose Urine WBC (Auto) Urine Creatinine Urine Total Protein Phenytoin Coronavirus (PCR) Crossmatch 05/30/20 05/30/20 05/30/20 00:08 00:12 04:15 WBC RBC Hgb Hct MCHC RDW Lymph % (Auto) [place] % (Auto) Eos % (Auto) Lymph # [place] # Lymph # (Auto) [place] # (Auto) Eos # (Auto) Seg Neutrophils % Seg Neuts % (Manual) Lymphocytes % (Manual) Seg Neutrophils # Seg Neutrophils # Man Lymphocytes # (Manual) Monocytes % (Manual) Eosinophils % (Manual) Monocytes # (Manual) Eosinophils # (Manual) D-Dimer Heparin Anti-Xa Level 0.71 H ABG pH 7.460 H POC ABG pCO2 POC ABG pO2 ABG pO2 106.0 H ABG HCO3 18.9 L ABG O2 Saturation ABG Base Excess -4.4 L ABG Hemoglobin 6.8 L ABG Oxyhemoglobin VBG pH ABG Sodium ABG Potassium ABG Glucose Oxyhemoglobin Sodium Potassium Chloride Carbon Dioxide BUN Creatinine Glucose POC Glucose 195 H Lactic Acid Calcium Ferritin AST Alkaline Phosphatase Magnesium Lactate Dehydrogenase Total Creatine Kinase CK-MB (CK-2) C-Reactive Protein Total Protein Albumin Troponin T HDL Cholesterol Arterial Blood Glucose Urine WBC (Auto) Urine Creatinine Urine Total Protein Phenytoin Coronavirus (PCR) Crossmatch 05/30/20 05/30/20 05/30/20 06:07 08:37 12:33 WBC RBC Hgb Hct MCHC RDW Lymph % (Auto) [place] % (Auto) Eos % (Auto) Lymph # [place] # Lymph # (Auto) [place] # (Auto) Eos # (Auto) Seg Neutrophils % Seg Neuts % (Manual) Lymphocytes % (Manual) Seg Neutrophils # Seg Neutrophils # Man Lymphocytes # (Manual) Monocytes % (Manual) Eosinophils % (Manual) Monocytes # (Manual) Eosinophils # (Manual) D-Dimer Heparin Anti-Xa Level 0.85 H ABG pH POC ABG pCO2 POC ABG pO2 ABG pO2 ABG HCO3 ABG O2 Saturation ABG Base Excess ABG Hemoglobin ABG Oxyhemoglobin VBG pH ABG Sodium ABG Potassium ABG Glucose Oxyhemoglobin Sodium Potassium Chloride Carbon Dioxide BUN Creatinine Glucose POC Glucose 182 H 187 H Lactic Acid Calcium Ferritin AST Alkaline Phosphatase Magnesium Lactate Dehydrogenase Total Creatine Kinase CK-MB (CK-2) C-Reactive Protein Total Protein Albumin Troponin T HDL Cholesterol Arterial Blood Glucose Urine WBC (Auto) Urine Creatinine Urine Total Protein Phenytoin Coronavirus (PCR) Crossmatch 05/30/20 05/30/20 05/30/20 15:58 17:57 23:36 WBC RBC Hgb Hct MCHC RDW Lymph % (Auto) [place] % (Auto) Eos % (Auto) Lymph # [place] # Lymph # (Auto) [place] # (Auto) Eos # (Auto) Seg Neutrophils % Seg Neuts % (Manual) Lymphocytes % (Manual) Seg Neutrophils # Seg Neutrophils # Man Lymphocytes # (Manual) Monocytes % (Manual) Eosinophils % (Manual) Monocytes # (Manual) Eosinophils # (Manual) D-Dimer Heparin Anti-Xa Level 1.03 H ABG pH POC ABG pCO2 POC ABG pO2 ABG pO2 ABG HCO3 ABG O2 Saturation ABG Base Excess ABG Hemoglobin ABG Oxyhemoglobin VBG pH ABG Sodium ABG Potassium ABG Glucose Oxyhemoglobin Sodium Potassium Chloride Carbon Dioxide BUN Creatinine Glucose POC Glucose 208 H 185 H Lactic Acid Calcium Ferritin AST Alkaline Phosphatase Magnesium Lactate Dehydrogenase Total Creatine Kinase CK-MB (CK-2) C-Reactive Protein Total Protein Albumin Troponin T HDL Cholesterol Arterial Blood Glucose Urine WBC (Auto) Urine Creatinine Urine Total Protein Phenytoin Coronavirus (PCR) Crossmatch 05/31/20 05/31/20 05/31/20 02:16 03:55 06:16 WBC RBC Hgb 9.2 L Hct 27.5 L MCHC RDW Lymph % (Auto) [place] % (Auto) Eos % (Auto) Lymph # [place] # Lymph # (Auto) [place] # (Auto) Eos # (Auto) Seg Neutrophils % Seg Neuts % (Manual) Lymphocytes % (Manual) Seg Neutrophils # Seg Neutrophils # Man Lymphocytes # (Manual) Monocytes % (Manual) Eosinophils % (Manual) Monocytes # (Manual) Eosinophils # (Manual) D-Dimer Heparin Anti-Xa Level ABG pH POC ABG pCO2 POC ABG pO2 ABG pO2 94.7 H ABG HCO3 18.6 L ABG O2 Saturation ABG Base Excess -5.5 L ABG Hemoglobin 7.9 L ABG Oxyhemoglobin VBG pH ABG Sodium ABG Potassium ABG Glucose Oxyhemoglobin Sodium Potassium Chloride Carbon Dioxide BUN Creatinine Glucose POC Glucose 160 H Lactic Acid Calcium Ferritin AST Alkaline Phosphatase Magnesium Lactate Dehydrogenase Total Creatine Kinase CK-MB (CK-2) C-Reactive Protein Total Protein Albumin Troponin T HDL Cholesterol Arterial Blood Glucose Urine WBC (Auto) Urine Creatinine Urine Total Protein Phenytoin Coronavirus (PCR) Crossmatch 05/31/20 05/31/20 05/31/20 12:20 13:03 18:13 WBC RBC Hgb Hct MCHC RDW Lymph % (Auto) [place] % (Auto) Eos % (Auto) Lymph # [place] # Lymph # (Auto) [place] # (Auto) Eos # (Auto) Seg Neutrophils % Seg Neuts % (Manual) Lymphocytes % (Manual) Seg Neutrophils # Seg Neutrophils # Man Lymphocytes # (Manual) Monocytes % (Manual) Eosinophils % (Manual) Monocytes # (Manual) Eosinophils # (Manual) D-Dimer Heparin Anti-Xa Level ABG pH POC ABG pCO2 POC ABG pO2 ABG pO2 ABG HCO3 ABG O2 Saturation ABG Base Excess ABG Hemoglobin ABG Oxyhemoglobin VBG pH ABG Sodium ABG Potassium ABG Glucose Oxyhemoglobin Sodium Potassium Chloride Carbon Dioxide 18 L BUN 48 H Creatinine 1.6 H Glucose 115 H POC Glucose 128 H 159 H Lactic Acid Calcium 8.3 L Ferritin AST Alkaline Phosphatase Magnesium Lactate Dehydrogenase Total Creatine Kinase CK-MB (CK-2) C-Reactive Protein Total Protein 5.4 L Albumin 2.4 L Troponin T HDL Cholesterol Arterial Blood Glucose Urine WBC (Auto) Urine Creatinine Urine Total Protein Phenytoin Coronavirus (PCR) Crossmatch 05/31/20 06/01/20 06/01/20 23:51 04:00 05:48 WBC RBC Hgb Hct MCHC RDW Lymph % (Auto) [place] % (Auto) Eos % (Auto) Lymph # [place] # Lymph # (Auto) [place] # (Auto) Eos # (Auto) Seg Neutrophils % Seg Neuts % (Manual) Lymphocytes % (Manual) Seg Neutrophils # Seg Neutrophils # Man Lymphocytes # (Manual) Monocytes % (Manual) Eosinophils % (Manual) Monocytes # (Manual) Eosinophils # (Manual) D-Dimer Heparin Anti-Xa Level ABG pH POC ABG pCO2 POC ABG pO2 ABG pO2 109.8 H ABG HCO3 18.8 L ABG O2 Saturation ABG Base Excess -5.9 L ABG Hemoglobin 7.8 L ABG Oxyhemoglobin VBG pH ABG Sodium ABG Potassium ABG Glucose Oxyhemoglobin Sodium Potassium Chloride Carbon Dioxide BUN Creatinine Glucose POC Glucose 171 H 133 H Lactic Acid Calcium Ferritin AST Alkaline Phosphatase Magnesium Lactate Dehydrogenase Total Creatine Kinase CK-MB (CK-2) C-Reactive Protein Total Protein Albumin Troponin T HDL Cholesterol Arterial Blood Glucose Urine WBC (Auto) Urine Creatinine Urine Total Protein Phenytoin Coronavirus (PCR) Crossmatch 06/01/20 06/01/20 06/02/20 12:28 17:29 00:08 WBC RBC Hgb Hct MCHC RDW Lymph % (Auto) [place] % (Auto) Eos % (Auto) Lymph # [place] # Lymph # (Auto) [place] # (Auto) Eos # (Auto) Seg Neutrophils % Seg Neuts % (Manual) Lymphocytes % (Manual) Seg Neutrophils # Seg Neutrophils # Man Lymphocytes # (Manual) Monocytes % (Manual) Eosinophils % (Manual) Monocytes # (Manual) Eosinophils # (Manual) D-Dimer Heparin Anti-Xa Level ABG pH POC ABG pCO2 POC ABG pO2 ABG pO2 ABG HCO3 ABG O2 Saturation ABG Base Excess ABG Hemoglobin ABG Oxyhemoglobin VBG pH ABG Sodium ABG Potassium ABG Glucose Oxyhemoglobin Sodium Potassium Chloride Carbon Dioxide BUN Creatinine Glucose POC Glucose 199 H 209 H 162 H Lactic Acid Calcium Ferritin AST Alkaline Phosphatase Magnesium Lactate Dehydrogenase Total Creatine Kinase CK-MB (CK-2) C-Reactive Protein Total Protein Albumin Troponin T HDL Cholesterol Arterial Blood Glucose Urine WBC (Auto) Urine Creatinine Urine Total Protein Phenytoin Coronavirus (PCR) Crossmatch 06/02/20 06/02/20 06/02/20 04:20 04:20 04:44 WBC RBC Hgb 10.0 L Hct MCHC RDW Lymph % (Auto) [place] % (Auto) Eos % (Auto) Lymph # [place] # Lymph # (Auto) [place] # (Auto) Eos # (Auto) Seg Neutrophils % Seg Neuts % (Manual) Lymphocytes % (Manual) Seg Neutrophils # Seg Neutrophils # Man Lymphocytes # (Manual) Monocytes % (Manual) Eosinophils % (Manual) Monocytes # (Manual) Eosinophils # (Manual) D-Dimer Heparin Anti-Xa Level 0.10 L ABG pH POC ABG pCO2 POC ABG pO2 ABG pO2 150.6 H ABG HCO3 ABG O2 Saturation ABG Base Excess -4.1 L ABG Hemoglobin 11.8 L ABG Oxyhemoglobin VBG pH ABG Sodium ABG Potassium ABG Glucose Oxyhemoglobin Sodium Potassium Chloride Carbon Dioxide BUN Creatinine Glucose POC Glucose Lactic Acid Calcium Ferritin AST Alkaline Phosphatase Magnesium Lactate Dehydrogenase Total Creatine Kinase CK-MB (CK-2) C-Reactive Protein Total Protein Albumin Troponin T HDL Cholesterol Arterial Blood Glucose Urine WBC (Auto) Urine Creatinine Urine Total Protein Phenytoin Coronavirus (PCR) Crossmatch 06/02/20 06/02/20 06/02/20 05:53 12:04 13:49 WBC RBC Hgb Hct MCHC RDW Lymph % (Auto) [place] % (Auto) Eos % (Auto) Lymph # [place] # Lymph # (Auto) [place] # (Auto) Eos # (Auto) Seg Neutrophils % Seg Neuts % (Manual) Lymphocytes % (Manual) Seg Neutrophils # Seg Neutrophils # Man Lymphocytes # (Manual) Monocytes % (Manual) Eosinophils % (Manual) Monocytes # (Manual) Eosinophils # (Manual) D-Dimer Heparin Anti-Xa Level 0.28 L ABG pH POC ABG pCO2 POC ABG pO2 ABG pO2 ABG HCO3 ABG O2 Saturation ABG Base Excess ABG Hemoglobin ABG Oxyhemoglobin VBG pH ABG Sodium ABG Potassium ABG Glucose Oxyhemoglobin Sodium Potassium Chloride Carbon Dioxide BUN Creatinine Glucose POC Glucose 149 H 220 H Lactic Acid Calcium Ferritin AST Alkaline Phosphatase Magnesium Lactate Dehydrogenase Total Creatine Kinase CK-MB (CK-2) C-Reactive Protein Total Protein Albumin Troponin T HDL Cholesterol Arterial Blood Glucose Urine WBC (Auto) Urine Creatinine Urine Total Protein Phenytoin Coronavirus (PCR) Crossmatch 06/02/20 06/02/20 06/03/20 13:49 18:31 00:42 WBC RBC Hgb Hct MCHC RDW Lymph % (Auto) [place] % (Auto) Eos % (Auto) Lymph # [place] # Lymph # (Auto) [place] # (Auto) Eos # (Auto) Seg Neutrophils % Seg Neuts % (Manual) Lymphocytes % (Manual) Seg Neutrophils # Seg Neutrophils # Man Lymphocytes # (Manual) Monocytes % (Manual) Eosinophils % (Manual) Monocytes # (Manual) Eosinophils # (Manual) D-Dimer 769.68 H Heparin Anti-Xa Level ABG pH POC ABG pCO2 POC ABG pO2 ABG pO2 ABG HCO3 ABG O2 Saturation ABG Base Excess ABG Hemoglobin ABG Oxyhemoglobin VBG pH ABG Sodium ABG Potassium ABG Glucose Oxyhemoglobin Sodium Potassium Chloride Carbon Dioxide BUN Creatinine Glucose POC Glucose 225 H 212 H Lactic Acid Calcium Ferritin AST Alkaline Phosphatase Magnesium Lactate Dehydrogenase Total Creatine Kinase CK-MB (CK-2) C-Reactive Protein Total Protein Albumin Troponin T HDL Cholesterol Arterial Blood Glucose Urine WBC (Auto) Urine Creatinine Urine Total Protein Phenytoin Coronavirus (PCR) Crossmatch 06/03/20 06/03/20 06/03/20 05:16 05:16 05:25 WBC 11.4 H RBC Hgb Hct MCHC RDW 16.4 H Lymph % (Auto) [place] % (Auto) Eos % (Auto) Lymph # [place] # Lymph # (Auto) [place] # (Auto) Eos # (Auto) Seg Neutrophils % Seg Neuts % (Manual) Lymphocytes % (Manual) Seg Neutrophils # Seg Neutrophils # Man Lymphocytes # (Manual) Monocytes % (Manual) Eosinophils % (Manual) Monocytes # (Manual) Eosinophils # (Manual) D-Dimer Heparin Anti-Xa Level ABG pH POC ABG pCO2 POC ABG pO2 ABG pO2 160.9 H ABG HCO3 19.4 L ABG O2 Saturation ABG Base Excess -4.9 L ABG Hemoglobin 7.0 L ABG Oxyhemoglobin VBG pH ABG Sodium ABG Potassium ABG Glucose Oxyhemoglobin Sodium Potassium Chloride Carbon Dioxide 18 L BUN 65 H Creatinine 2.0 H Glucose 175 H POC Glucose Lactic Acid Calcium 8.0 L Ferritin AST Alkaline Phosphatase Magnesium Lactate Dehydrogenase Total Creatine Kinase CK-MB (CK-2) C-Reactive Protein Total Protein 5.5 L Albumin 2.2 L Troponin T HDL Cholesterol Arterial Blood Glucose Urine WBC (Auto) Urine Creatinine Urine Total Protein Phenytoin Coronavirus (PCR) Crossmatch 06/03/20 06/03/20 06/03/20 06:07 11:58 18:24 WBC RBC Hgb Hct MCHC RDW Lymph % (Auto) [place] % (Auto) Eos % (Auto) Lymph # [place] # Lymph # (Auto) [place] # (Auto) Eos # (Auto) Seg Neutrophils % Seg Neuts % (Manual) Lymphocytes % (Manual) Seg Neutrophils # Seg Neutrophils # Man Lymphocytes # (Manual) Monocytes % (Manual) Eosinophils % (Manual) Monocytes # (Manual) Eosinophils # (Manual) D-Dimer Heparin Anti-Xa Level ABG pH POC ABG pCO2 POC ABG pO2 ABG pO2 ABG HCO3 ABG O2 Saturation ABG Base Excess ABG Hemoglobin ABG Oxyhemoglobin VBG pH ABG Sodium ABG Potassium ABG Glucose Oxyhemoglobin Sodium Potassium Chloride Carbon Dioxide BUN Creatinine Glucose POC Glucose 177 H 163 H 211 H Lactic Acid Calcium Ferritin AST Alkaline Phosphatase Magnesium Lactate Dehydrogenase Total Creatine Kinase CK-MB (CK-2) C-Reactive Protein Total Protein Albumin Troponin T HDL Cholesterol Arterial Blood Glucose Urine WBC (Auto) Urine Creatinine Urine Total Protein Phenytoin Coronavirus (PCR) Crossmatch 06/03/20 06/03/20 06/04/20 21:50 Unknown 00:26 WBC RBC Hgb Hct MCHC RDW Lymph % (Auto) [place] % (Auto) Eos % (Auto) Lymph # [place] # Lymph # (Auto) [place] # (Auto) Eos # (Auto) Seg Neutrophils % Seg Neuts % (Manual) Lymphocytes % (Manual) Seg Neutrophils # Seg Neutrophils # Man Lymphocytes # (Manual) Monocytes % (Manual) Eosinophils % (Manual) Monocytes # (Manual) Eosinophils # (Manual) D-Dimer Heparin Anti-Xa Level ABG pH POC ABG pCO2 POC ABG pO2 ABG pO2 ABG HCO3 ABG O2 Saturation ABG Base Excess ABG Hemoglobin ABG Oxyhemoglobin VBG pH ABG Sodium ABG Potassium ABG Glucose Oxyhemoglobin Sodium 135 L Potassium Chloride Carbon Dioxide 18 L BUN Creatinine Glucose POC Glucose 241 H Lactic Acid Calcium Ferritin AST Alkaline Phosphatase Magnesium Lactate Dehydrogenase Total Creatine Kinase CK-MB (CK-2) C-Reactive Protein Total Protein Albumin Troponin T HDL Cholesterol Arterial Blood Glucose Urine WBC (Auto) 11.0 H Urine Creatinine Urine Total Protein Phenytoin Coronavirus (PCR) Crossmatch 06/04/20 06/04/20 06/04/20 03:35 04:19 04:19 WBC RBC 3.15 L Hgb 8.9 L Hct 26.8 L D MCHC RDW 15.9 H Lymph % (Auto) 6.0 L [place] % (Auto) Eos % (Auto) Lymph # 0.6 L [place] # Lymph # (Auto) [place] # (Auto) Eos # (Auto) Seg Neutrophils % 86.6 H Seg Neuts % (Manual) Lymphocytes % (Manual) Seg Neutrophils # 9.1 H Seg Neutrophils # Man Lymphocytes # (Manual) Monocytes % (Manual) Eosinophils % (Manual) Monocytes # (Manual) Eosinophils # (Manual) D-Dimer Heparin Anti-Xa Level ABG pH 7.331 L POC ABG pCO2 POC ABG pO2 ABG pO2 ABG HCO3 ABG O2 Saturation ABG Base Excess -4.7 L ABG Hemoglobin 11.0 L ABG Oxyhemoglobin VBG pH ABG Sodium ABG Potassium ABG Glucose Oxyhemoglobin 93.9 L Sodium 136 L Potassium Chloride Carbon Dioxide 20 L BUN 73 H Creatinine 2.0 H Glucose 192 H POC Glucose Lactic Acid Calcium 8.0 L Ferritin AST Alkaline Phosphatase Magnesium Lactate Dehydrogenase 271 H Total Creatine Kinase CK-MB (CK-2) C-Reactive Protein 2.20 H Total Protein 5.0 L Albumin 2.0 L Troponin T HDL Cholesterol Arterial Blood Glucose Urine WBC (Auto) Urine Creatinine Urine Total Protein Phenytoin Coronavirus (PCR) Crossmatch 06/04/20 06/04/20 06/04/20 04:19 05:51 11:48 WBC RBC Hgb Hct MCHC RDW Lymph % (Auto) [place] % (Auto) Eos % (Auto) Lymph # [place] # Lymph # (Auto) [place] # (Auto) Eos # (Auto) Seg Neutrophils % Seg Neuts % (Manual) Lymphocytes % (Manual) Seg Neutrophils # Seg Neutrophils # Man Lymphocytes # (Manual) Monocytes % (Manual) Eosinophils % (Manual) Monocytes # (Manual) Eosinophils # (Manual) D-Dimer 414.52 H Heparin Anti-Xa Level ABG pH POC ABG pCO2 POC ABG pO2 ABG pO2 ABG HCO3 ABG O2 Saturation ABG Base Excess ABG Hemoglobin ABG Oxyhemoglobin VBG pH ABG Sodium ABG Potassium ABG Glucose Oxyhemoglobin Sodium Potassium Chloride Carbon Dioxide BUN Creatinine Glucose POC Glucose 179 H 213 H Lactic Acid Calcium Ferritin AST Alkaline Phosphatase Magnesium Lactate Dehydrogenase Total Creatine Kinase CK-MB (CK-2) C-Reactive Protein Total Protein Albumin Troponin T HDL Cholesterol Arterial Blood Glucose Urine WBC (Auto) Urine Creatinine Urine Total Protein Phenytoin Coronavirus (PCR) Crossmatch 06/04/20 06/05/20 06/05/20 18:25 00:16 05:00 WBC RBC Hgb Hct MCHC RDW Lymph % (Auto) [place] % (Auto) Eos % (Auto) Lymph # [place] # Lymph # (Auto) [place] # (Auto) Eos # (Auto) Seg Neutrophils % Seg Neuts % (Manual) Lymphocytes % (Manual) Seg Neutrophils # Seg Neutrophils # Man Lymphocytes # (Manual) Monocytes % (Manual) Eosinophils % (Manual) Monocytes # (Manual) Eosinophils # (Manual) D-Dimer Heparin Anti-Xa Level ABG pH 7.286 L POC ABG pCO2 POC ABG pO2 ABG pO2 96.2 H ABG HCO3 ABG O2 Saturation ABG Base Excess -6.3 L ABG Hemoglobin 8.8 L ABG Oxyhemoglobin VBG pH ABG Sodium ABG Potassium ABG Glucose Oxyhemoglobin 94.8 L Sodium Potassium Chloride Carbon Dioxide BUN Creatinine Glucose POC Glucose 238 H 183 H Lactic Acid Calcium Ferritin AST Alkaline Phosphatase Magnesium Lactate Dehydrogenase Total Creatine Kinase CK-MB (CK-2) C-Reactive Protein Total Protein Albumin Troponin T HDL Cholesterol Arterial Blood Glucose Urine WBC (Auto) Urine Creatinine Urine Total Protein Phenytoin Coronavirus (PCR) Crossmatch 06/05/20 06/05/20 06/05/20 05:39 07:25 07:25 WBC RBC 2.97 L Hgb 8.7 L Hct 25.7 L MCHC RDW 16.0 H Lymph % (Auto) 8.8 L [place] % (Auto) 13.3 H Eos % (Auto) Lymph # 0.8 L [place] # 1.3 H Lymph # (Auto) [place] # (Auto) Eos # (Auto) Seg Neutrophils % 77.3 H Seg Neuts % (Manual) Lymphocytes % (Manual) Seg Neutrophils # Seg Neutrophils # Man Lymphocytes # (Manual) Monocytes % (Manual) Eosinophils % (Manual) Monocytes # (Manual) Eosinophils # (Manual) D-Dimer Heparin Anti-Xa Level ABG pH POC ABG pCO2 POC ABG pO2 ABG pO2 ABG HCO3 ABG O2 Saturation ABG Base Excess ABG Hemoglobin ABG Oxyhemoglobin VBG pH ABG Sodium ABG Potassium ABG Glucose Oxyhemoglobin Sodium 133 L Potassium Chloride Carbon Dioxide 17 L BUN 89 H Creatinine 2.8 H Glucose 176 H POC Glucose 149 H Lactic Acid Calcium 7.7 L Ferritin AST Alkaline Phosphatase Magnesium Lactate Dehydrogenase Total Creatine Kinase CK-MB (CK-2) C-Reactive Protein Total Protein 4.2 L Albumin 1.9 L Troponin T HDL Cholesterol Arterial Blood Glucose Urine WBC (Auto) Urine Creatinine Urine Total Protein Phenytoin Coronavirus (PCR) Crossmatch 06/05/20 06/05/20 06/05/20 07:25 12:05 15:41 WBC RBC Hgb Hct MCHC RDW Lymph % (Auto) [place] % (Auto) Eos % (Auto) Lymph # [place] # Lymph # (Auto) [place] # (Auto) Eos # (Auto) Seg Neutrophils % Seg Neuts % (Manual) Lymphocytes % (Manual) Seg Neutrophils # Seg Neutrophils # Man Lymphocytes # (Manual) Monocytes % (Manual) Eosinophils % (Manual) Monocytes # (Manual) Eosinophils # (Manual) D-Dimer Heparin Anti-Xa Level 0.76 H 0.81 H ABG pH POC ABG pCO2 POC ABG pO2 ABG pO2 ABG HCO3 ABG O2 Saturation ABG Base Excess ABG Hemoglobin ABG Oxyhemoglobin VBG pH ABG Sodium ABG Potassium ABG Glucose Oxyhemoglobin Sodium Potassium Chloride Carbon Dioxide BUN Creatinine Glucose POC Glucose 198 H Lactic Acid Calcium Ferritin AST Alkaline Phosphatase Magnesium Lactate Dehydrogenase Total Creatine Kinase CK-MB (CK-2) C-Reactive Protein Total Protein Albumin Troponin T HDL Cholesterol Arterial Blood Glucose Urine WBC (Auto) Urine Creatinine Urine Total Protein Phenytoin Coronavirus (PCR) Crossmatch 06/05/20 06/05/20 06/06/20 18:08 23:25 04:00 WBC RBC Hgb Hct MCHC RDW Lymph % (Auto) [place] % (Auto) Eos % (Auto) Lymph # [place] # Lymph # (Auto) [place] # (Auto) Eos # (Auto) Seg Neutrophils % Seg Neuts % (Manual) Lymphocytes % (Manual) Seg Neutrophils # Seg Neutrophils # Man Lymphocytes # (Manual) Monocytes % (Manual) Eosinophils % (Manual) Monocytes # (Manual) Eosinophils # (Manual) D-Dimer Heparin Anti-Xa Level ABG pH POC ABG pCO2 POC ABG pO2 ABG pO2 ABG HCO3 ABG O2 Saturation ABG Base Excess ABG Hemoglobin ABG Oxyhemoglobin VBG pH ABG Sodium ABG Potassium ABG Glucose Oxyhemoglobin Sodium Potassium Chloride Carbon Dioxide BUN Creatinine Glucose POC Glucose 223 H 169 H Lactic Acid Calcium Ferritin AST Alkaline Phosphatase Magnesium Lactate Dehydrogenase Total Creatine Kinase CK-MB (CK-2) C-Reactive Protein Total Protein Albumin Troponin T HDL Cholesterol Arterial Blood Glucose Urine WBC (Auto) 15.0 H Urine Creatinine Urine Total Protein Phenytoin Coronavirus (PCR) Crossmatch 06/06/20 06/06/20 06/06/20 04:00 05:33 05:38 WBC RBC 2.97 L Hgb 8.7 L Hct 26.8 L MCHC RDW 16.8 H Lymph % (Auto) [place] % (Auto) Eos % (Auto) Lymph # [place] # Lymph # (Auto) [place] # (Auto) Eos # (Auto) Seg Neutrophils % Seg Neuts % (Manual) Lymphocytes % (Manual) Seg Neutrophils # Seg Neutrophils # Man Lymphocytes # (Manual) Monocytes % (Manual) Eosinophils % (Manual) Monocytes # (Manual) Eosinophils # (Manual) D-Dimer Heparin Anti-Xa Level ABG pH POC ABG pCO2 POC ABG pO2 ABG pO2 ABG HCO3 ABG O2 Saturation ABG Base Excess ABG Hemoglobin ABG Oxyhemoglobin VBG pH ABG Sodium ABG Potassium ABG Glucose Oxyhemoglobin Sodium Potassium Chloride Carbon Dioxide BUN Creatinine Glucose POC Glucose 186 H Lactic Acid Calcium Ferritin AST Alkaline Phosphatase Magnesium Lactate Dehydrogenase Total Creatine Kinase CK-MB (CK-2) C-Reactive Protein Total Protein Albumin Troponin T HDL Cholesterol Arterial Blood Glucose Urine WBC (Auto) Urine Creatinine 82.2 H Urine Total Protein 196 H Phenytoin Coronavirus (PCR) Crossmatch 06/06/20 06/06/20 06/06/20 05:38 12:25 17:03 WBC RBC Hgb Hct MCHC RDW Lymph % (Auto) [place] % (Auto) Eos % (Auto) Lymph # [place] # Lymph # (Auto) [place] # (Auto) Eos # (Auto) Seg Neutrophils % Seg Neuts % (Manual) Lymphocytes % (Manual) Seg Neutrophils # Seg Neutrophils # Man Lymphocytes # (Manual) Monocytes % (Manual) Eosinophils % (Manual) Monocytes # (Manual) Eosinophils # (Manual) D-Dimer Heparin Anti-Xa Level ABG pH POC ABG pCO2 POC ABG pO2 ABG pO2 ABG HCO3 ABG O2 Saturation ABG Base Excess ABG Hemoglobin ABG Oxyhemoglobin VBG pH ABG Sodium ABG Potassium ABG Glucose Oxyhemoglobin Sodium 134 L Potassium 5.2 H Chloride Carbon Dioxide 18 L BUN 97 H Creatinine 2.5 H Glucose 193 H POC Glucose 239 H 252 H Lactic Acid Calcium 7.5 L Ferritin AST Alkaline Phosphatase Magnesium Lactate Dehydrogenase Total Creatine Kinase CK-MB (CK-2) C-Reactive Protein Total Protein 4.1 L Albumin 1.9 L Troponin T HDL Cholesterol Arterial Blood Glucose Urine WBC (Auto) Urine Creatinine Urine Total Protein Phenytoin Coronavirus (PCR) Crossmatch 06/07/20 06/07/20 06/07/20 00:16 01:49 04:00 WBC RBC 2.91 L Hgb 8.4 L Hct 25.0 L MCHC RDW 16.1 H Lymph % (Auto) 5.7 L [place] % (Auto) 10.5 H Eos % (Auto) Lymph # 0.6 L [place] # 1.1 H Lymph # (Auto) [place] # (Auto) Eos # (Auto) Seg Neutrophils % 83.6 H Seg Neuts % (Manual) Lymphocytes % (Manual) Seg Neutrophils # 9.1 H Seg Neutrophils # Man Lymphocytes # (Manual) Monocytes % (Manual) Eosinophils % (Manual) Monocytes # (Manual) Eosinophils # (Manual) D-Dimer Heparin Anti-Xa Level 0.26 L ABG pH POC ABG pCO2 POC ABG pO2 ABG pO2 ABG HCO3 ABG O2 Saturation ABG Base Excess ABG Hemoglobin ABG Oxyhemoglobin VBG pH ABG Sodium ABG Potassium ABG Glucose Oxyhemoglobin Sodium Potassium Chloride Carbon Dioxide BUN Creatinine Glucose POC Glucose 173 H Lactic Acid Calcium Ferritin AST Alkaline Phosphatase Magnesium Lactate Dehydrogenase Total Creatine Kinase CK-MB (CK-2) C-Reactive Protein Total Protein Albumin Troponin T HDL Cholesterol Arterial Blood Glucose Urine WBC (Auto) Urine Creatinine Urine Total Protein Phenytoin Coronavirus (PCR) Crossmatch 06/07/20 06/07/20 06/07/20 04:00 04:54 05:51 WBC RBC Hgb Hct MCHC RDW Lymph % (Auto) [place] % (Auto) Eos % (Auto) Lymph # [place] # Lymph # (Auto) [place] # (Auto) Eos # (Auto) Seg Neutrophils % Seg Neuts % (Manual) Lymphocytes % (Manual) Seg Neutrophils # Seg Neutrophils # Man Lymphocytes # (Manual) Monocytes % (Manual) Eosinophils % (Manual) Monocytes # (Manual) Eosinophils # (Manual) D-Dimer Heparin Anti-Xa Level ABG pH 7.317 L POC ABG pCO2 POC ABG pO2 ABG pO2 71.4 L ABG HCO3 ABG O2 Saturation 94.3 L ABG Base Excess -4.8 L ABG Hemoglobin 7.1 L ABG Oxyhemoglobin VBG pH ABG Sodium ABG Potassium ABG Glucose Oxyhemoglobin 92.2 L Sodium 133 L Potassium Chloride Carbon Dioxide 18 L BUN 100 H Creatinine 2.5 H Glucose 158 H POC Glucose 168 H Lactic Acid Calcium 7.6 L Ferritin AST Alkaline Phosphatase Magnesium Lactate Dehydrogenase Total Creatine Kinase CK-MB (CK-2) C-Reactive Protein Total Protein 4.7 L Albumin 2.0 L Troponin T HDL Cholesterol Arterial Blood Glucose Urine WBC (Auto) Urine Creatinine Urine Total Protein Phenytoin Coronavirus (PCR) Crossmatch 06/07/20 06/07/20 06/07/20 12:03 17:17 20:10 WBC RBC Hgb Hct MCHC RDW Lymph % (Auto) [place] % (Auto) Eos % (Auto) Lymph # [place] # Lymph # (Auto) [place] # (Auto) Eos # (Auto) Seg Neutrophils % Seg Neuts % (Manual) Lymphocytes % (Manual) Seg Neutrophils # Seg Neutrophils # Man Lymphocytes # (Manual) Monocytes % (Manual) Eosinophils % (Manual) Monocytes # (Manual) Eosinophils # (Manual) D-Dimer Heparin Anti-Xa Level 0.17 L ABG pH POC ABG pCO2 POC ABG pO2 ABG pO2 ABG HCO3 ABG O2 Saturation ABG Base Excess ABG Hemoglobin ABG Oxyhemoglobin VBG pH ABG Sodium ABG Potassium ABG Glucose Oxyhemoglobin Sodium Potassium Chloride Carbon Dioxide BUN Creatinine Glucose POC Glucose 276 H 281 H Lactic Acid Calcium Ferritin AST Alkaline Phosphatase Magnesium Lactate Dehydrogenase Total Creatine Kinase CK-MB (CK-2) C-Reactive Protein Total Protein Albumin Troponin T HDL Cholesterol Arterial Blood Glucose Urine WBC (Auto) Urine Creatinine Urine Total Protein Phenytoin Coronavirus (PCR) Crossmatch 06/08/20 06/08/20 06/08/20 00:02 04:47 04:47 WBC 16.4 H RBC 3.07 L Hgb 8.6 L Hct 26.5 L MCHC RDW 16.3 H Lymph % (Auto) [place] % (Auto) Eos % (Auto) Lymph # [place] # Lymph # (Auto) [place] # (Auto) Eos # (Auto) Seg Neutrophils % Seg Neuts % (Manual) 90.0 H Lymphocytes % (Manual) 3.0 L Seg Neutrophils # Seg Neutrophils # Man 14.8 H Lymphocytes # (Manual) 0.5 L Monocytes % (Manual) Eosinophils % (Manual) Monocytes # (Manual) 1.1 H Eosinophils # (Manual) D-Dimer Heparin Anti-Xa Level ABG pH POC ABG pCO2 POC ABG pO2 ABG pO2 ABG HCO3 ABG O2 Saturation ABG Base Excess ABG Hemoglobin ABG Oxyhemoglobin VBG pH ABG Sodium ABG Potassium ABG Glucose Oxyhemoglobin Sodium 129 L Potassium Chloride 95.6 L Carbon Dioxide 17 L BUN 106 H Creatinine 2.5 H Glucose 213 H POC Glucose 242 H Lactic Acid Calcium 7.6 L Ferritin AST Alkaline Phosphatase Magnesium Lactate Dehydrogenase Total Creatine Kinase CK-MB (CK-2) C-Reactive Protein Total Protein 5.0 L Albumin 2.1 L Troponin T HDL Cholesterol Arterial Blood Glucose Urine WBC (Auto) Urine Creatinine Urine Total Protein Phenytoin Coronavirus (PCR) Crossmatch 06/08/20 06/08/20 06/08/20 05:40 11:55 17:54 WBC RBC Hgb Hct MCHC RDW Lymph % (Auto) [place] % (Auto) Eos % (Auto) Lymph # [place] # Lymph # (Auto) [place] # (Auto) Eos # (Auto) Seg Neutrophils % Seg Neuts % (Manual) Lymphocytes % (Manual) Seg Neutrophils # Seg Neutrophils # Man Lymphocytes # (Manual) Monocytes % (Manual) Eosinophils % (Manual) Monocytes # (Manual) Eosinophils # (Manual) D-Dimer Heparin Anti-Xa Level ABG pH POC ABG pCO2 POC ABG pO2 ABG pO2 ABG HCO3 ABG O2 Saturation ABG Base Excess ABG Hemoglobin ABG Oxyhemoglobin VBG pH ABG Sodium ABG Potassium ABG Glucose Oxyhemoglobin Sodium Potassium Chloride Carbon Dioxide BUN Creatinine Glucose POC Glucose 221 H 218 H 163 H Lactic Acid Calcium Ferritin AST Alkaline Phosphatase Magnesium Lactate Dehydrogenase Total Creatine Kinase CK-MB (CK-2) C-Reactive Protein Total Protein Albumin Troponin T HDL Cholesterol Arterial Blood Glucose Urine WBC (Auto) Urine Creatinine Urine Total Protein Phenytoin Coronavirus (PCR) Crossmatch 06/08/20 06/09/20 06/09/20 22:01 00:09 05:16 WBC 19.0 H RBC 3.35 L Hgb 9.2 L Hct 28.5 L MCHC RDW 16.3 H Lymph % (Auto) [place] % (Auto) Eos % (Auto) Lymph # [place] # Lymph # (Auto) [place] # (Auto) Eos # (Auto) Seg Neutrophils % Seg Neuts % (Manual) 85.0 H Lymphocytes % (Manual) 7.0 L Seg Neutrophils # Seg Neutrophils # Man 16.2 H Lymphocytes # (Manual) Monocytes % (Manual) Eosinophils % (Manual) Monocytes # (Manual) 1.3 H Eosinophils # (Manual) D-Dimer Heparin Anti-Xa Level ABG pH POC ABG pCO2 POC ABG pO2 ABG pO2 ABG HCO3 ABG O2 Saturation ABG Base Excess ABG Hemoglobin ABG Oxyhemoglobin VBG pH ABG Sodium ABG Potassium ABG Glucose Oxyhemoglobin Sodium Potassium Chloride Carbon Dioxide BUN Creatinine Glucose POC Glucose 182 H 150 H Lactic Acid Calcium Ferritin AST Alkaline Phosphatase Magnesium Lactate Dehydrogenase Total Creatine Kinase CK-MB (CK-2) C-Reactive Protein Total Protein Albumin Troponin T HDL Cholesterol Arterial Blood Glucose Urine WBC (Auto) Urine Creatinine Urine Total Protein Phenytoin Coronavirus (PCR) Crossmatch 06/09/20 06/09/20 06/09/20 05:16 05:24 11:29 WBC RBC Hgb Hct MCHC RDW Lymph % (Auto) [place] % (Auto) Eos % (Auto) Lymph # [place] # Lymph # (Auto) [place] # (Auto) Eos # (Auto) Seg Neutrophils % Seg Neuts % (Manual) Lymphocytes % (Manual) Seg Neutrophils # Seg Neutrophils # Man Lymphocytes # (Manual) Monocytes % (Manual) Eosinophils % (Manual) Monocytes # (Manual) Eosinophils # (Manual) D-Dimer Heparin Anti-Xa Level ABG pH POC ABG pCO2 POC ABG pO2 ABG pO2 ABG HCO3 ABG O2 Saturation ABG Base Excess ABG Hemoglobin ABG Oxyhemoglobin VBG pH ABG Sodium ABG Potassium ABG Glucose Oxyhemoglobin Sodium 133 L Potassium Chloride Carbon Dioxide 19 L BUN 109 H Creatinine 2.1 H Glucose 133 H POC Glucose 128 H 119 H Lactic Acid Calcium 7.7 L Ferritin AST Alkaline Phosphatase < 5 L Magnesium Lactate Dehydrogenase Total Creatine Kinase CK-MB (CK-2) C-Reactive Protein Total Protein 4.6 L Albumin < 0.2 L Troponin T HDL Cholesterol Arterial Blood Glucose Urine WBC (Auto) Urine Creatinine Urine Total Protein Phenytoin Coronavirus (PCR) Crossmatch 06/09/20 06/10/20 06/10/20 17:32 00:00 05:49 WBC RBC Hgb Hct MCHC RDW Lymph % (Auto) [place] % (Auto) Eos % (Auto) Lymph # [place] # Lymph # (Auto) [place] # (Auto) Eos # (Auto) Seg Neutrophils % Seg Neuts % (Manual) Lymphocytes % (Manual) Seg Neutrophils # Seg Neutrophils # Man Lymphocytes # (Manual) Monocytes % (Manual) Eosinophils % (Manual) Monocytes # (Manual) Eosinophils # (Manual) D-Dimer Heparin Anti-Xa Level 0.19 L ABG pH POC ABG pCO2 POC ABG pO2 ABG pO2 ABG HCO3 ABG O2 Saturation ABG Base Excess ABG Hemoglobin ABG Oxyhemoglobin VBG pH ABG Sodium ABG Potassium ABG Glucose Oxyhemoglobin Sodium Potassium Chloride Carbon Dioxide BUN Creatinine Glucose POC Glucose 106 H 117 H Lactic Acid Calcium Ferritin AST Alkaline Phosphatase Magnesium Lactate Dehydrogenase Total Creatine Kinase CK-MB (CK-2) C-Reactive Protein Total Protein Albumin Troponin T HDL Cholesterol Arterial Blood Glucose Urine WBC (Auto) Urine Creatinine Urine Total Protein Phenytoin Coronavirus (PCR) Crossmatch 06/10/20 06/10/20 06/10/20 05:54 07:40 11:40 WBC RBC Hgb Hct MCHC RDW Lymph % (Auto) [place] % (Auto) Eos % (Auto) Lymph # [place] # Lymph # (Auto) [place] # (Auto) Eos # (Auto) Seg Neutrophils % Seg Neuts % (Manual) Lymphocytes % (Manual) Seg Neutrophils # Seg Neutrophils # Man Lymphocytes # (Manual) Monocytes % (Manual) Eosinophils % (Manual) Monocytes # (Manual) Eosinophils # (Manual) D-Dimer Heparin Anti-Xa Level ABG pH POC ABG pCO2 POC ABG pO2 ABG pO2 ABG HCO3 ABG O2 Saturation ABG Base Excess ABG Hemoglobin ABG Oxyhemoglobin VBG pH ABG Sodium ABG Potassium ABG Glucose Oxyhemoglobin Sodium 146 H D Potassium Chloride Carbon Dioxide 20 L BUN 99 H Creatinine 1.9 H Glucose 121 H POC Glucose 127 H 138 H Lactic Acid Calcium 8.2 L Ferritin AST Alkaline Phosphatase Magnesium Lactate Dehydrogenase Total Creatine Kinase CK-MB (CK-2) C-Reactive Protein Total Protein Albumin Troponin T HDL Cholesterol Arterial Blood Glucose Urine WBC (Auto) Urine Creatinine Urine Total Protein Phenytoin Coronavirus (PCR) Crossmatch 06/10/20 06/10/20 06/10/20 14:44 17:31 23:22 WBC RBC Hgb Hct MCHC RDW Lymph % (Auto) [place] % (Auto) Eos % (Auto) Lymph # [place] # Lymph # (Auto) [place] # (Auto) Eos # (Auto) Seg Neutrophils % Seg Neuts % (Manual) Lymphocytes % (Manual) Seg Neutrophils # Seg Neutrophils # Man Lymphocytes # (Manual) Monocytes % (Manual) Eosinophils % (Manual) Monocytes # (Manual) Eosinophils # (Manual) D-Dimer Heparin Anti-Xa Level 0.17 L ABG pH POC ABG pCO2 POC ABG pO2 ABG pO2 ABG HCO3 ABG O2 Saturation ABG Base Excess ABG Hemoglobin ABG Oxyhemoglobin VBG pH ABG Sodium ABG Potassium ABG Glucose Oxyhemoglobin Sodium Potassium Chloride Carbon Dioxide BUN Creatinine Glucose POC Glucose 128 H 114 H Lactic Acid Calcium Ferritin AST Alkaline Phosphatase Magnesium Lactate Dehydrogenase Total Creatine Kinase CK-MB (CK-2) C-Reactive Protein Total Protein Albumin Troponin T HDL Cholesterol Arterial Blood Glucose Urine WBC (Auto) Urine Creatinine Urine Total Protein Phenytoin Coronavirus (PCR) Crossmatch 06/11/20 06/11/20 06/11/20 00:22 03:45 03:45 WBC 14.6 H RBC 2.77 L Hgb 7.9 L Hct 24.3 L MCHC RDW 16.8 H Lymph % (Auto) 6.6 L [place] % (Auto) 8.5 H Eos % (Auto) Lymph # 1.0 L [place] # 1.2 H Lymph # (Auto) [place] # (Auto) Eos # (Auto) Seg Neutrophils % 82.9 H Seg Neuts % (Manual) Lymphocytes % (Manual) Seg Neutrophils # 12.1 H Seg Neutrophils # Man Lymphocytes # (Manual) Monocytes % (Manual) Eosinophils % (Manual) Monocytes # (Manual) Eosinophils # (Manual) D-Dimer Heparin Anti-Xa Level 0.24 L ABG pH POC ABG pCO2 POC ABG pO2 ABG pO2 ABG HCO3 ABG O2 Saturation ABG Base Excess ABG Hemoglobin ABG Oxyhemoglobin VBG pH ABG Sodium ABG Potassium ABG Glucose Oxyhemoglobin Sodium Potassium Chloride Carbon Dioxide 20 L BUN 88 H Creatinine 1.5 H Glucose 111 H POC Glucose Lactic Acid Calcium 8.2 L Ferritin AST Alkaline Phosphatase Magnesium Lactate Dehydrogenase Total Creatine Kinase CK-MB (CK-2) C-Reactive Protein Total Protein Albumin Troponin T HDL Cholesterol Arterial Blood Glucose Urine WBC (Auto) Urine Creatinine Urine Total Protein Phenytoin Coronavirus (PCR) Crossmatch 06/11/20 06/11/20 06/11/20 06:03 10:22 11:11 WBC RBC Hgb Hct MCHC RDW Lymph % (Auto) [place] % (Auto) Eos % (Auto) Lymph # [place] # Lymph # (Auto) [place] # (Auto) Eos # (Auto) Seg Neutrophils % Seg Neuts % (Manual) Lymphocytes % (Manual) Seg Neutrophils # Seg Neutrophils # Man Lymphocytes # (Manual) Monocytes % (Manual) Eosinophils % (Manual) Monocytes # (Manual) Eosinophils # (Manual) D-Dimer Heparin Anti-Xa Level 0.26 L ABG pH POC ABG pCO2 POC ABG pO2 ABG pO2 ABG HCO3 ABG O2 Saturation ABG Base Excess ABG Hemoglobin 9.6 L ABG Oxyhemoglobin VBG pH ABG Sodium ABG Potassium ABG Glucose Oxyhemoglobin Sodium Potassium Chloride Carbon Dioxide BUN Creatinine Glucose POC Glucose 114 H Lactic Acid Calcium Ferritin AST Alkaline Phosphatase Magnesium Lactate Dehydrogenase Total Creatine Kinase CK-MB (CK-2) C-Reactive Protein Total Protein Albumin Troponin T HDL Cholesterol Arterial Blood Glucose Urine WBC (Auto) Urine Creatinine Urine Total Protein Phenytoin Coronavirus (PCR) Crossmatch 06/11/20 06/11/20 06/12/20 12:24 17:24 00:21 WBC RBC Hgb Hct MCHC RDW Lymph % (Auto) [place] % (Auto) Eos % (Auto) Lymph # [place] # Lymph # (Auto) [place] # (Auto) Eos # (Auto) Seg Neutrophils % Seg Neuts % (Manual) Lymphocytes % (Manual) Seg Neutrophils # Seg Neutrophils # Man Lymphocytes # (Manual) Monocytes % (Manual) Eosinophils % (Manual) Monocytes # (Manual) Eosinophils # (Manual) D-Dimer Heparin Anti-Xa Level ABG pH POC ABG pCO2 POC ABG pO2 ABG pO2 ABG HCO3 ABG O2 Saturation ABG Base Excess ABG Hemoglobin ABG Oxyhemoglobin VBG pH ABG Sodium ABG Potassium ABG Glucose Oxyhemoglobin Sodium Potassium Chloride Carbon Dioxide BUN Creatinine Glucose POC Glucose 119 H 126 H 117 H Lactic Acid Calcium Ferritin AST Alkaline Phosphatase Magnesium Lactate Dehydrogenase Total Creatine Kinase CK-MB (CK-2) C-Reactive Protein Total Protein Albumin Troponin T HDL Cholesterol Arterial Blood Glucose Urine WBC (Auto) Urine Creatinine Urine Total Protein Phenytoin Coronavirus (PCR) Crossmatch 06/12/20 06/12/20 06/12/20 02:46 02:46 05:46 WBC 13.2 H RBC 2.83 L Hgb 8.3 L Hct 24.3 L MCHC RDW 16.6 H Lymph % (Auto) 6.2 L [place] % (Auto) 9.5 H Eos % (Auto) Lymph # 0.8 L [place] # 1.3 H Lymph # (Auto) [place] # (Auto) Eos # (Auto) Seg Neutrophils % 81.9 H Seg Neuts % (Manual) Lymphocytes % (Manual) Seg Neutrophils # 10.9 H Seg Neutrophils # Man Lymphocytes # (Manual) Monocytes % (Manual) Eosinophils % (Manual) Monocytes # (Manual) Eosinophils # (Manual) D-Dimer Heparin Anti-Xa Level ABG pH POC ABG pCO2 POC ABG pO2 ABG pO2 ABG HCO3 ABG O2 Saturation ABG Base Excess ABG Hemoglobin ABG Oxyhemoglobin VBG pH ABG Sodium ABG Potassium ABG Glucose Oxyhemoglobin Sodium Potassium 3.5 L Chloride Carbon Dioxide BUN 77 H Creatinine 1.3 H Glucose POC Glucose 132 H Lactic Acid Calcium 8.3 L Ferritin AST Alkaline Phosphatase Magnesium Lactate Dehydrogenase Total Creatine Kinase CK-MB (CK-2) C-Reactive Protein Total Protein Albumin Troponin T HDL Cholesterol Arterial Blood Glucose Urine WBC (Auto) Urine Creatinine Urine Total Protein Phenytoin Coronavirus (PCR) Crossmatch 06/12/20 06/12/20 06/12/20 09:20 12:16 17:48 WBC RBC Hgb Hct MCHC RDW Lymph % (Auto) [place] % (Auto) Eos % (Auto) Lymph # [place] # Lymph # (Auto) [place] # (Auto) Eos # (Auto) Seg Neutrophils % Seg Neuts % (Manual) Lymphocytes % (Manual) Seg Neutrophils # Seg Neutrophils # Man Lymphocytes # (Manual) Monocytes % (Manual) Eosinophils % (Manual) Monocytes # (Manual) Eosinophils # (Manual) D-Dimer Heparin Anti-Xa Level ABG pH POC ABG pCO2 POC ABG pO2 ABG pO2 91.1 H ABG HCO3 ABG O2 Saturation ABG Base Excess ABG Hemoglobin ABG Oxyhemoglobin VBG pH ABG Sodium ABG Potassium ABG Glucose Oxyhemoglobin 94.8 L Sodium Potassium Chloride Carbon Dioxide BUN Creatinine Glucose POC Glucose 167 H 182 H Lactic Acid Calcium Ferritin AST Alkaline Phosphatase Magnesium Lactate Dehydrogenase Total Creatine Kinase CK-MB (CK-2) C-Reactive Protein Total Protein Albumin Troponin T HDL Cholesterol Arterial Blood Glucose Urine WBC (Auto) Urine Creatinine Urine Total Protein Phenytoin Coronavirus (PCR) Crossmatch 06/13/20 06/13/20 06/13/20 00:08 05:37 09:09 WBC RBC Hgb Hct MCHC RDW Lymph % (Auto) [place] % (Auto) Eos % (Auto) Lymph # [place] # Lymph # (Auto) [place] # (Auto) Eos # (Auto) Seg Neutrophils % Seg Neuts % (Manual) Lymphocytes % (Manual) Seg Neutrophils # Seg Neutrophils # Man Lymphocytes # (Manual) Monocytes % (Manual) Eosinophils % (Manual) Monocytes # (Manual) Eosinophils # (Manual) D-Dimer Heparin Anti-Xa Level 0.86 H ABG pH POC ABG pCO2 POC ABG pO2 ABG pO2 ABG HCO3 ABG O2 Saturation ABG Base Excess ABG Hemoglobin ABG Oxyhemoglobin VBG pH ABG Sodium ABG Potassium ABG Glucose Oxyhemoglobin Sodium Potassium Chloride Carbon Dioxide BUN Creatinine Glucose POC Glucose 142 H 119 H Lactic Acid Calcium Ferritin AST Alkaline Phosphatase Magnesium Lactate Dehydrogenase Total Creatine Kinase CK-MB (CK-2) C-Reactive Protein Total Protein Albumin Troponin T HDL Cholesterol Arterial Blood Glucose Urine WBC (Auto) Urine Creatinine Urine Total Protein Phenytoin Coronavirus (PCR) Crossmatch 06/13/20 06/13/20 06/13/20 12:28 17:55 21:17 WBC RBC Hgb Hct MCHC RDW Lymph % (Auto) [place] % (Auto) Eos % (Auto) Lymph # [place] # Lymph # (Auto) [place] # (Auto) Eos # (Auto) Seg Neutrophils % Seg Neuts % (Manual) Lymphocytes % (Manual) Seg Neutrophils # Seg Neutrophils # Man Lymphocytes # (Manual) Monocytes % (Manual) Eosinophils % (Manual) Monocytes # (Manual) Eosinophils # (Manual) D-Dimer Heparin Anti-Xa Level ABG pH POC ABG pCO2 POC ABG pO2 ABG pO2 ABG HCO3 ABG O2 Saturation ABG Base Excess ABG Hemoglobin ABG Oxyhemoglobin VBG pH ABG Sodium ABG Potassium ABG Glucose Oxyhemoglobin Sodium Potassium Chloride Carbon Dioxide BUN 61 H Creatinine Glucose 131 H POC Glucose 165 H 174 H Lactic Acid Calcium Ferritin AST Alkaline Phosphatase Magnesium Lactate Dehydrogenase Total Creatine Kinase CK-MB (CK-2) C-Reactive Protein Total Protein Albumin Troponin T HDL Cholesterol Arterial Blood Glucose Urine WBC (Auto) Urine Creatinine Urine Total Protein Phenytoin Coronavirus (PCR) Crossmatch 06/13/20 06/13/20 06/14/20 21:17 23:50 05:34 WBC RBC Hgb Hct MCHC RDW Lymph % (Auto) [place] % (Auto) Eos % (Auto) Lymph # [place] # Lymph # (Auto) [place] # (Auto) Eos # (Auto) Seg Neutrophils % Seg Neuts % (Manual) Lymphocytes % (Manual) Seg Neutrophils # Seg Neutrophils # Man Lymphocytes # (Manual) Monocytes % (Manual) Eosinophils % (Manual) Monocytes # (Manual) Eosinophils # (Manual) D-Dimer Heparin Anti-Xa Level 0.72 H ABG pH POC ABG pCO2 POC ABG pO2 ABG pO2 ABG HCO3 ABG O2 Saturation ABG Base Excess ABG Hemoglobin ABG Oxyhemoglobin VBG pH ABG Sodium ABG Potassium ABG Glucose Oxyhemoglobin Sodium 146 H Potassium Chloride 107.6 H Carbon Dioxide BUN 61 H Creatinine 1.3 H Glucose 135 H POC Glucose 146 H Lactic Acid Calcium Ferritin AST Alkaline Phosphatase Magnesium Lactate Dehydrogenase Total Creatine Kinase CK-MB (CK-2) C-Reactive Protein Total Protein Albumin Troponin T HDL Cholesterol Arterial Blood Glucose Urine WBC (Auto) Urine Creatinine Urine Total Protein Phenytoin Coronavirus (PCR) Crossmatch 06/14/20 06/14/20 06/14/20 06:11 09:28 11:30 WBC RBC Hgb Hct MCHC RDW Lymph % (Auto) [place] % (Auto) Eos % (Auto) Lymph # [place] # Lymph # (Auto) [place] # (Auto) Eos # (Auto) Seg Neutrophils % Seg Neuts % (Manual) Lymphocytes % (Manual) Seg Neutrophils # Seg Neutrophils # Man Lymphocytes # (Manual) Monocytes % (Manual) Eosinophils % (Manual) Monocytes # (Manual) Eosinophils # (Manual) D-Dimer Heparin Anti-Xa Level 0.90 H ABG pH POC ABG pCO2 POC ABG pO2 ABG pO2 ABG HCO3 ABG O2 Saturation ABG Base Excess ABG Hemoglobin ABG Oxyhemoglobin VBG pH ABG Sodium ABG Potassium ABG Glucose Oxyhemoglobin Sodium Potassium Chloride Carbon Dioxide BUN Creatinine Glucose POC Glucose 141 H 186 H Lactic Acid Calcium Ferritin AST Alkaline Phosphatase Magnesium Lactate Dehydrogenase Total Creatine Kinase CK-MB (CK-2) C-Reactive Protein Total Protein Albumin Troponin T HDL Cholesterol Arterial Blood Glucose Urine WBC (Auto) Urine Creatinine Urine Total Protein Phenytoin Coronavirus (PCR) Crossmatch 06/14/20 06/14/20 06/14/20 16:07 18:16 23:51 WBC RBC Hgb Hct MCHC RDW Lymph % (Auto) [place] % (Auto) Eos % (Auto) Lymph # [place] # Lymph # (Auto) [place] # (Auto) Eos # (Auto) Seg Neutrophils % Seg Neuts % (Manual) Lymphocytes % (Manual) Seg Neutrophils # Seg Neutrophils # Man Lymphocytes # (Manual) Monocytes % (Manual) Eosinophils % (Manual) Monocytes # (Manual) Eosinophils # (Manual) D-Dimer Heparin Anti-Xa Level 0.82 H ABG pH POC ABG pCO2 POC ABG pO2 ABG pO2 ABG HCO3 ABG O2 Saturation ABG Base Excess ABG Hemoglobin ABG Oxyhemoglobin VBG pH ABG Sodium ABG Potassium ABG Glucose Oxyhemoglobin Sodium Potassium Chloride Carbon Dioxide BUN Creatinine Glucose POC Glucose 106 H 154 H Lactic Acid Calcium Ferritin AST Alkaline Phosphatase Magnesium Lactate Dehydrogenase Total Creatine Kinase CK-MB (CK-2) C-Reactive Protein Total Protein Albumin Troponin T HDL Cholesterol Arterial Blood Glucose Urine WBC (Auto) Urine Creatinine Urine Total Protein Phenytoin Coronavirus (PCR) Crossmatch 06/15/20 06/15/20 06/15/20 04:24 04:24 05:59 WBC RBC 2.75 L Hgb 7.9 L Hct 24.0 L MCHC RDW 16.4 H Lymph % (Auto) 12.9 L [place] % (Auto) 8.7 H Eos % (Auto) 4.6 H Lymph # 1.1 L [place] # Lymph # (Auto) [place] # (Auto) Eos # (Auto) Seg Neutrophils % 73.2 H Seg Neuts % (Manual) Lymphocytes % (Manual) Seg Neutrophils # Seg Neutrophils # Man Lymphocytes # (Manual) Monocytes % (Manual) Eosinophils % (Manual) Monocytes # (Manual) Eosinophils # (Manual) D-Dimer Heparin Anti-Xa Level ABG pH POC ABG pCO2 POC ABG pO2 ABG pO2 ABG HCO3 ABG O2 Saturation ABG Base Excess ABG Hemoglobin ABG Oxyhemoglobin VBG pH ABG Sodium ABG Potassium ABG Glucose Oxyhemoglobin Sodium Potassium 3.4 L Chloride Carbon Dioxide BUN 55 H Creatinine 1.3 H Glucose 142 H POC Glucose 131 H Lactic Acid Calcium Ferritin AST Alkaline Phosphatase Magnesium Lactate Dehydrogenase Total Creatine Kinase CK-MB (CK-2) C-Reactive Protein Total Protein Albumin Troponin T HDL Cholesterol Arterial Blood Glucose Urine WBC (Auto) Urine Creatinine Urine Total Protein Phenytoin Coronavirus (PCR) Crossmatch 06/15/20 06/15/20 06/16/20 12:33 17:07 00:22 WBC RBC Hgb Hct MCHC RDW Lymph % (Auto) [place] % (Auto) Eos % (Auto) Lymph # [place] # Lymph # (Auto) [place] # (Auto) Eos # (Auto) Seg Neutrophils % Seg Neuts % (Manual) Lymphocytes % (Manual) Seg Neutrophils # Seg Neutrophils # Man Lymphocytes # (Manual) Monocytes % (Manual) Eosinophils % (Manual) Monocytes # (Manual) Eosinophils # (Manual) D-Dimer Heparin Anti-Xa Level 0.21 L ABG pH POC ABG pCO2 POC ABG pO2 ABG pO2 ABG HCO3 ABG O2 Saturation ABG Base Excess ABG Hemoglobin ABG Oxyhemoglobin VBG pH ABG Sodium ABG Potassium ABG Glucose Oxyhemoglobin Sodium Potassium Chloride Carbon Dioxide BUN Creatinine Glucose POC Glucose 180 H 185 H Lactic Acid Calcium Ferritin AST Alkaline Phosphatase Magnesium Lactate Dehydrogenase Total Creatine Kinase CK-MB (CK-2) C-Reactive Protein Total Protein Albumin Troponin T HDL Cholesterol Arterial Blood Glucose Urine WBC (Auto) Urine Creatinine Urine Total Protein Phenytoin Coronavirus (PCR) Crossmatch 06/16/20 06/16/20 06/16/20 01:45 08:06 09:15 WBC RBC Hgb Hct MCHC RDW Lymph % (Auto) [place] % (Auto) Eos % (Auto) Lymph # [place] # Lymph # (Auto) [place] # (Auto) Eos # (Auto) Seg Neutrophils % Seg Neuts % (Manual) Lymphocytes % (Manual) Seg Neutrophils # Seg Neutrophils # Man Lymphocytes # (Manual) Monocytes % (Manual) Eosinophils % (Manual) Monocytes # (Manual) Eosinophils # (Manual) D-Dimer Heparin Anti-Xa Level ABG pH POC ABG pCO2 POC ABG pO2 ABG pO2 ABG HCO3 ABG O2 Saturation ABG Base Excess ABG Hemoglobin ABG Oxyhemoglobin VBG pH ABG Sodium ABG Potassium ABG Glucose Oxyhemoglobin Sodium Potassium Chloride Carbon Dioxide BUN 49 H Creatinine Glucose 154 H POC Glucose 140 H 171 H Lactic Acid Calcium Ferritin AST Alkaline Phosphatase Magnesium Lactate Dehydrogenase Total Creatine Kinase CK-MB (CK-2) C-Reactive Protein Total Protein Albumin Troponin T HDL Cholesterol Arterial Blood Glucose Urine WBC (Auto) Urine Creatinine Urine Total Protein Phenytoin Coronavirus (PCR) Crossmatch 06/16/20 06/16/20 06/16/20 10:46 12:33 17:54 WBC RBC Hgb Hct MCHC RDW Lymph % (Auto) [place] % (Auto) Eos % (Auto) Lymph # [place] # Lymph # (Auto) [place] # (Auto) Eos # (Auto) Seg Neutrophils % Seg Neuts % (Manual) Lymphocytes % (Manual) Seg Neutrophils # Seg Neutrophils # Man Lymphocytes # (Manual) Monocytes % (Manual) Eosinophils % (Manual) Monocytes # (Manual) Eosinophils # (Manual) D-Dimer Heparin Anti-Xa Level 0.12 L ABG pH POC ABG pCO2 POC ABG pO2 ABG pO2 ABG HCO3 ABG O2 Saturation ABG Base Excess ABG Hemoglobin ABG Oxyhemoglobin VBG pH ABG Sodium ABG Potassium ABG Glucose Oxyhemoglobin Sodium Potassium Chloride Carbon Dioxide BUN Creatinine Glucose POC Glucose 166 H 151 H Lactic Acid Calcium Ferritin AST Alkaline Phosphatase Magnesium Lactate Dehydrogenase Total Creatine Kinase CK-MB (CK-2) C-Reactive Protein Total Protein Albumin Troponin T HDL Cholesterol Arterial Blood Glucose Urine WBC (Auto) Urine Creatinine Urine Total Protein Phenytoin Coronavirus (PCR) Crossmatch 06/16/20 06/17/20 06/17/20 18:47 00:00 02:19 WBC RBC Hgb Hct MCHC RDW Lymph % (Auto) [place] % (Auto) Eos % (Auto) Lymph # [place] # Lymph # (Auto) [place] # (Auto) Eos # (Auto) Seg Neutrophils % Seg Neuts % (Manual) Lymphocytes % (Manual) Seg Neutrophils # Seg Neutrophils # Man Lymphocytes # (Manual) Monocytes % (Manual) Eosinophils % (Manual) Monocytes # (Manual) Eosinophils # (Manual) D-Dimer Heparin Anti-Xa Level 0.73 H 0.77 H ABG pH POC ABG pCO2 POC ABG pO2 ABG pO2 ABG HCO3 ABG O2 Saturation ABG Base Excess ABG Hemoglobin ABG Oxyhemoglobin VBG pH ABG Sodium ABG Potassium ABG Glucose Oxyhemoglobin Sodium Potassium Chloride Carbon Dioxide BUN Creatinine Glucose POC Glucose 139 H Lactic Acid Calcium Ferritin AST Alkaline Phosphatase Magnesium Lactate Dehydrogenase Total Creatine Kinase CK-MB (CK-2) C-Reactive Protein Total Protein Albumin Troponin T HDL Cholesterol Arterial Blood Glucose Urine WBC (Auto) Urine Creatinine Urine Total Protein Phenytoin Coronavirus (PCR) Crossmatch 06/17/20 06/17/20 06/17/20 06:07 11:42 16:43 WBC RBC Hgb Hct MCHC RDW Lymph % (Auto) [place] % (Auto) Eos % (Auto) Lymph # [place] # Lymph # (Auto) [place] # (Auto) Eos # (Auto) Seg Neutrophils % Seg Neuts % (Manual) Lymphocytes % (Manual) Seg Neutrophils # Seg Neutrophils # Man Lymphocytes # (Manual) Monocytes % (Manual) Eosinophils % (Manual) Monocytes # (Manual) Eosinophils # (Manual) D-Dimer Heparin Anti-Xa Level 0.73 H ABG pH POC ABG pCO2 POC ABG pO2 ABG pO2 ABG HCO3 ABG O2 Saturation ABG Base Excess ABG Hemoglobin ABG Oxyhemoglobin VBG pH ABG Sodium ABG Potassium ABG Glucose Oxyhemoglobin Sodium Potassium Chloride Carbon Dioxide BUN Creatinine Glucose POC Glucose 169 H 169 H Lactic Acid Calcium Ferritin AST Alkaline Phosphatase Magnesium Lactate Dehydrogenase Total Creatine Kinase CK-MB (CK-2) C-Reactive Protein Total Protein Albumin Troponin T HDL Cholesterol Arterial Blood Glucose Urine WBC (Auto) Urine Creatinine Urine Total Protein Phenytoin Coronavirus (PCR) Crossmatch 06/17/20 06/17/20 06/17/20 18:18 23:08 23:16 WBC RBC Hgb Hct MCHC RDW Lymph % (Auto) [place] % (Auto) Eos % (Auto) Lymph # [place] # Lymph # (Auto) [place] # (Auto) Eos # (Auto) Seg Neutrophils % Seg Neuts % (Manual) Lymphocytes % (Manual) Seg Neutrophils # Seg Neutrophils # Man Lymphocytes # (Manual) Monocytes % (Manual) Eosinophils % (Manual) Monocytes # (Manual) Eosinophils # (Manual) D-Dimer Heparin Anti-Xa Level 0.71 H ABG pH POC ABG pCO2 POC ABG pO2 ABG pO2 ABG HCO3 ABG O2 Saturation ABG Base Excess ABG Hemoglobin ABG Oxyhemoglobin VBG pH ABG Sodium ABG Potassium ABG Glucose Oxyhemoglobin Sodium Potassium Chloride Carbon Dioxide BUN Creatinine Glucose POC Glucose 159 H 134 H Lactic Acid Calcium Ferritin AST Alkaline Phosphatase Magnesium Lactate Dehydrogenase Total Creatine Kinase CK-MB (CK-2) C-Reactive Protein Total Protein Albumin Troponin T HDL Cholesterol Arterial Blood Glucose Urine WBC (Auto) Urine Creatinine Urine Total Protein Phenytoin Coronavirus (PCR) Crossmatch 06/18/20 06/18/20 06/18/20 04:42 05:52 11:50 WBC RBC Hgb Hct MCHC RDW Lymph % (Auto) [place] % (Auto) Eos % (Auto) Lymph # [place] # Lymph # (Auto) [place] # (Auto) Eos # (Auto) Seg Neutrophils % Seg Neuts % (Manual) Lymphocytes % (Manual) Seg Neutrophils # Seg Neutrophils # Man Lymphocytes # (Manual) Monocytes % (Manual) Eosinophils % (Manual) Monocytes # (Manual) Eosinophils # (Manual) D-Dimer Heparin Anti-Xa Level ABG pH POC ABG pCO2 POC ABG pO2 ABG pO2 ABG HCO3 ABG O2 Saturation ABG Base Excess ABG Hemoglobin ABG Oxyhemoglobin VBG pH ABG Sodium ABG Potassium ABG Glucose Oxyhemoglobin Sodium Potassium Chloride Carbon Dioxide BUN 44 H Creatinine Glucose 115 H POC Glucose 171 H 167 H Lactic Acid Calcium Ferritin AST Alkaline Phosphatase Magnesium Lactate Dehydrogenase Total Creatine Kinase CK-MB (CK-2) C-Reactive Protein Total Protein Albumin Troponin T HDL Cholesterol Arterial Blood Glucose Urine WBC (Auto) Urine Creatinine Urine Total Protein Phenytoin Coronavirus (PCR) Crossmatch 06/18/20 06/19/20 06/19/20 23:46 05:48 07:52 WBC RBC Hgb Hct MCHC RDW Lymph % (Auto) [place] % (Auto) Eos % (Auto) Lymph # [place] # Lymph # (Auto) [place] # (Auto) Eos # (Auto) Seg Neutrophils % Seg Neuts % (Manual) Lymphocytes % (Manual) Seg Neutrophils # Seg Neutrophils # Man Lymphocytes # (Manual) Monocytes % (Manual) Eosinophils % (Manual) Monocytes # (Manual) Eosinophils # (Manual) D-Dimer Heparin Anti-Xa Level ABG pH POC ABG pCO2 POC ABG pO2 ABG pO2 ABG HCO3 ABG O2 Saturation ABG Base Excess ABG Hemoglobin ABG Oxyhemoglobin VBG pH ABG Sodium ABG Potassium ABG Glucose Oxyhemoglobin Sodium Potassium Chloride Carbon Dioxide BUN Creatinine Glucose POC Glucose 130 H 207 H 175 H Lactic Acid Calcium Ferritin AST Alkaline Phosphatase Magnesium Lactate Dehydrogenase Total Creatine Kinase CK-MB (CK-2) C-Reactive Protein Total Protein Albumin Troponin T HDL Cholesterol Arterial Blood Glucose Urine WBC (Auto) Urine Creatinine Urine Total Protein Phenytoin Coronavirus (PCR) Crossmatch 06/19/20 06/19/20 06/20/20 11:42 22:54 05:17 WBC RBC Hgb Hct MCHC RDW Lymph % (Auto) [place] % (Auto) Eos % (Auto) Lymph # [place] # Lymph # (Auto) [place] # (Auto) Eos # (Auto) Seg Neutrophils % Seg Neuts % (Manual) Lymphocytes % (Manual) Seg Neutrophils # Seg Neutrophils # Man Lymphocytes # (Manual) Monocytes % (Manual) Eosinophils % (Manual) Monocytes # (Manual) Eosinophils # (Manual) D-Dimer Heparin Anti-Xa Level ABG pH POC ABG pCO2 POC ABG pO2 ABG pO2 ABG HCO3 ABG O2 Saturation ABG Base Excess ABG Hemoglobin ABG Oxyhemoglobin VBG pH ABG Sodium ABG Potassium ABG Glucose Oxyhemoglobin Sodium Potassium Chloride Carbon Dioxide BUN Creatinine Glucose POC Glucose 166 H 135 H 218 H Lactic Acid Calcium Ferritin AST Alkaline Phosphatase Magnesium Lactate Dehydrogenase Total Creatine Kinase CK-MB (CK-2) C-Reactive Protein Total Protein Albumin Troponin T HDL Cholesterol Arterial Blood Glucose Urine WBC (Auto) Urine Creatinine Urine Total Protein Phenytoin Coronavirus (PCR) Crossmatch 06/20/20 06/20/20 06/20/20 12:04 16:25 16:35 WBC RBC Hgb Hct MCHC RDW Lymph % (Auto) [place] % (Auto) Eos % (Auto) Lymph # [place] # Lymph # (Auto) [place] # (Auto) Eos # (Auto) Seg Neutrophils % Seg Neuts % (Manual) Lymphocytes % (Manual) Seg Neutrophils # Seg Neutrophils # Man Lymphocytes # (Manual) Monocytes % (Manual) Eosinophils % (Manual) Monocytes # (Manual) Eosinophils # (Manual) D-Dimer Heparin Anti-Xa Level ABG pH POC ABG pCO2 POC ABG pO2 ABG pO2 59.6 L ABG HCO3 28.7 H ABG O2 Saturation 93.5 L ABG Base Excess 3.4 H ABG Hemoglobin 7.2 L ABG Oxyhemoglobin VBG pH ABG Sodium ABG Potassium ABG Glucose Oxyhemoglobin 91.3 L Sodium Potassium Chloride Carbon Dioxide BUN Creatinine Glucose POC Glucose 194 H 137 H Lactic Acid Calcium Ferritin AST Alkaline Phosphatase Magnesium Lactate Dehydrogenase Total Creatine Kinase CK-MB (CK-2) C-Reactive Protein Total Protein Albumin Troponin T HDL Cholesterol Arterial Blood Glucose Urine WBC (Auto) Urine Creatinine Urine Total Protein Phenytoin Coronavirus (PCR) Crossmatch 06/20/20 06/21/20 06/21/20 23:59 06:25 12:01 WBC RBC Hgb Hct MCHC RDW Lymph % (Auto) [place] % (Auto) Eos % (Auto) Lymph # [place] # Lymph # (Auto) [place] # (Auto) Eos # (Auto) Seg Neutrophils % Seg Neuts % (Manual) Lymphocytes % (Manual) Seg Neutrophils # Seg Neutrophils # Man Lymphocytes # (Manual) Monocytes % (Manual) Eosinophils % (Manual) Monocytes # (Manual) Eosinophils # (Manual) D-Dimer Heparin Anti-Xa Level ABG pH POC ABG pCO2 POC ABG pO2 ABG pO2 ABG HCO3 ABG O2 Saturation ABG Base Excess ABG Hemoglobin ABG Oxyhemoglobin VBG pH ABG Sodium ABG Potassium ABG Glucose Oxyhemoglobin Sodium Potassium Chloride Carbon Dioxide BUN Creatinine Glucose POC Glucose 156 H 177 H 195 H Lactic Acid Calcium Ferritin AST Alkaline Phosphatase Magnesium Lactate Dehydrogenase Total Creatine Kinase CK-MB (CK-2) C-Reactive Protein Total Protein Albumin Troponin T HDL Cholesterol Arterial Blood Glucose Urine WBC (Auto) Urine Creatinine Urine Total Protein Phenytoin Coronavirus (PCR) Crossmatch 06/21/20 06/21/20 06/22/20 17:04 21:51 05:06 WBC RBC Hgb Hct MCHC RDW Lymph % (Auto) [place] % (Auto) Eos % (Auto) Lymph # [place] # Lymph # (Auto) [place] # (Auto) Eos # (Auto) Seg Neutrophils % Seg Neuts % (Manual) Lymphocytes % (Manual) Seg Neutrophils # Seg Neutrophils # Man Lymphocytes # (Manual) Monocytes % (Manual) Eosinophils % (Manual) Monocytes # (Manual) Eosinophils # (Manual) D-Dimer Heparin Anti-Xa Level ABG pH POC ABG pCO2 POC ABG pO2 ABG pO2 ABG HCO3 ABG O2 Saturation ABG Base Excess ABG Hemoglobin ABG Oxyhemoglobin VBG pH ABG Sodium ABG Potassium ABG Glucose Oxyhemoglobin Sodium Potassium Chloride Carbon Dioxide BUN Creatinine Glucose POC Glucose 156 H 154 H 167 H Lactic Acid Calcium Ferritin AST Alkaline Phosphatase Magnesium Lactate Dehydrogenase Total Creatine Kinase CK-MB (CK-2) C-Reactive Protein Total Protein Albumin Troponin T HDL Cholesterol Arterial Blood Glucose Urine WBC (Auto) Urine Creatinine Urine Total Protein Phenytoin Coronavirus (PCR) Crossmatch 06/22/20 06/22/20 06/22/20 11:20 15:27 16:58 WBC RBC Hgb Hct MCHC RDW Lymph % (Auto) [place] % (Auto) Eos % (Auto) Lymph # [place] # Lymph # (Auto) [place] # (Auto) Eos # (Auto) Seg Neutrophils % Seg Neuts % (Manual) Lymphocytes % (Manual) Seg Neutrophils # Seg Neutrophils # Man Lymphocytes # (Manual) Monocytes % (Manual) Eosinophils % (Manual) Monocytes # (Manual) Eosinophils # (Manual) D-Dimer Heparin Anti-Xa Level ABG pH 7.206 L POC ABG pCO2 79.9 H POC ABG pO2 ABG pO2 ABG HCO3 ABG O2 Saturation ABG Base Excess ABG Hemoglobin 8.3 L ABG Oxyhemoglobin VBG pH ABG Sodium ABG Potassium ABG Glucose Oxyhemoglobin Sodium Potassium Chloride Carbon Dioxide BUN Creatinine Glucose POC Glucose 181 H 230 H Lactic Acid Calcium Ferritin AST Alkaline Phosphatase Magnesium Lactate Dehydrogenase Total Creatine Kinase CK-MB (CK-2) C-Reactive Protein Total Protein Albumin Troponin T HDL Cholesterol Arterial Blood Glucose Urine WBC (Auto) Urine Creatinine Urine Total Protein Phenytoin Coronavirus (PCR) Crossmatch 06/22/20 06/23/20 06/23/20 22:26 05:49 05:49 WBC RBC 2.58 L Hgb 7.4 L Hct 23.2 L MCHC RDW 17.0 H Lymph % (Auto) [place] % (Auto) 11.2 H Eos % (Auto) Lymph # 1.0 L [place] # Lymph # (Auto) [place] # (Auto) Eos # (Auto) Seg Neutrophils % Seg Neuts % (Manual) Lymphocytes % (Manual) Seg Neutrophils # Seg Neutrophils # Man Lymphocytes # (Manual) Monocytes % (Manual) Eosinophils % (Manual) Monocytes # (Manual) Eosinophils # (Manual) D-Dimer Heparin Anti-Xa Level ABG pH POC ABG pCO2 POC ABG pO2 ABG pO2 ABG HCO3 ABG O2 Saturation ABG Base Excess ABG Hemoglobin ABG Oxyhemoglobin VBG pH ABG Sodium ABG Potassium ABG Glucose Oxyhemoglobin Sodium Potassium Chloride Carbon Dioxide BUN 68 H Creatinine 2.4 H Glucose 198 H POC Glucose 195 H Lactic Acid Calcium Ferritin AST Alkaline Phosphatase Magnesium Lactate Dehydrogenase Total Creatine Kinase CK-MB (CK-2) C-Reactive Protein Total Protein Albumin Troponin T HDL Cholesterol Arterial Blood Glucose Urine WBC (Auto) Urine Creatinine Urine Total Protein Phenytoin Coronavirus (PCR) Crossmatch 06/23/20 06/23/20 06/23/20 05:50 12:29 12:34 WBC RBC Hgb Hct MCHC RDW Lymph % (Auto) [place] % (Auto) Eos % (Auto) Lymph # [place] # Lymph # (Auto) [place] # (Auto) Eos # (Auto) Seg Neutrophils % Seg Neuts % (Manual) Lymphocytes % (Manual) Seg Neutrophils # Seg Neutrophils # Man Lymphocytes # (Manual) Monocytes % (Manual) Eosinophils % (Manual) Monocytes # (Manual) Eosinophils # (Manual) D-Dimer Heparin Anti-Xa Level ABG pH POC ABG pCO2 54.7 H POC ABG pO2 68.8 L ABG pO2 ABG HCO3 ABG O2 Saturation ABG Base Excess ABG Hemoglobin 9.8 L ABG Oxyhemoglobin 92.6 L VBG pH ABG Sodium ABG Potassium ABG Glucose Oxyhemoglobin Sodium Potassium Chloride Carbon Dioxide BUN Creatinine Glucose POC Glucose 202 H 218 H Lactic Acid Calcium Ferritin AST Alkaline Phosphatase Magnesium Lactate Dehydrogenase Total Creatine Kinase CK-MB (CK-2) C-Reactive Protein Total Protein Albumin Troponin T HDL Cholesterol Arterial Blood Glucose Urine WBC (Auto) Urine Creatinine Urine Total Protein Phenytoin Coronavirus (PCR) Crossmatch 06/23/20 06/23/20 06/24/20 16:02 22:22 01:06 WBC RBC Hgb Hct MCHC RDW Lymph % (Auto) [place] % (Auto) Eos % (Auto) Lymph # [place] # Lymph # (Auto) [place] # (Auto) Eos # (Auto) Seg Neutrophils % Seg Neuts % (Manual) Lymphocytes % (Manual) Seg Neutrophils # Seg Neutrophils # Man Lymphocytes # (Manual) Monocytes % (Manual) Eosinophils % (Manual) Monocytes # (Manual) Eosinophils # (Manual) D-Dimer Heparin Anti-Xa Level ABG pH POC ABG pCO2 POC ABG pO2 ABG pO2 ABG HCO3 ABG O2 Saturation ABG Base Excess ABG Hemoglobin ABG Oxyhemoglobin VBG pH ABG Sodium ABG Potassium ABG Glucose Oxyhemoglobin Sodium Potassium Chloride Carbon Dioxide BUN Creatinine Glucose POC Glucose 190 H 166 H 171 H Lactic Acid Calcium Ferritin AST Alkaline Phosphatase Magnesium Lactate Dehydrogenase Total Creatine Kinase CK-MB (CK-2) C-Reactive Protein Total Protein Albumin Troponin T HDL Cholesterol Arterial Blood Glucose Urine WBC (Auto) Urine Creatinine Urine Total Protein Phenytoin Coronavirus (PCR) Crossmatch 06/24/20 06/24/20 06/24/20 04:48 05:35 11:48 WBC RBC Hgb Hct MCHC RDW Lymph % (Auto) [place] % (Auto) Eos % (Auto) Lymph # [place] # Lymph # (Auto) [place] # (Auto) Eos # (Auto) Seg Neutrophils % Seg Neuts % (Manual) Lymphocytes % (Manual) Seg Neutrophils # Seg Neutrophils # Man Lymphocytes # (Manual) Monocytes % (Manual) Eosinophils % (Manual) Monocytes # (Manual) Eosinophils # (Manual) D-Dimer Heparin Anti-Xa Level ABG pH POC ABG pCO2 POC ABG pO2 ABG pO2 ABG HCO3 ABG O2 Saturation ABG Base Excess ABG Hemoglobin ABG Oxyhemoglobin VBG pH ABG Sodium ABG Potassium ABG Glucose Oxyhemoglobin Sodium Potassium Chloride Carbon Dioxide BUN 75 H Creatinine 2.6 H Glucose 179 H POC Glucose 172 H 153 H Lactic Acid Calcium Ferritin AST Alkaline Phosphatase Magnesium Lactate Dehydrogenase Total Creatine Kinase CK-MB (CK-2) C-Reactive Protein Total Protein Albumin Troponin T HDL Cholesterol Arterial Blood Glucose Urine WBC (Auto) Urine Creatinine Urine Total Protein Phenytoin Coronavirus (PCR) Crossmatch 06/24/20 06/24/20 06/25/20 16:38 21:52 12:00 WBC RBC Hgb Hct MCHC RDW Lymph % (Auto) [place] % (Auto) Eos % (Auto) Lymph # [place] # Lymph # (Auto) [place] # (Auto) Eos # (Auto) Seg Neutrophils % Seg Neuts % (Manual) Lymphocytes % (Manual) Seg Neutrophils # Seg Neutrophils # Man Lymphocytes # (Manual) Monocytes % (Manual) Eosinophils % (Manual) Monocytes # (Manual) Eosinophils # (Manual) D-Dimer Heparin Anti-Xa Level ABG pH POC ABG pCO2 POC ABG pO2 ABG pO2 ABG HCO3 ABG O2 Saturation ABG Base Excess ABG Hemoglobin ABG Oxyhemoglobin VBG pH ABG Sodium ABG Potassium ABG Glucose Oxyhemoglobin Sodium Potassium Chloride Carbon Dioxide BUN Creatinine Glucose POC Glucose 123 H 115 H 203 H Lactic Acid Calcium Ferritin AST Alkaline Phosphatase Magnesium Lactate Dehydrogenase Total Creatine Kinase CK-MB (CK-2) C-Reactive Protein Total Protein Albumin Troponin T HDL Cholesterol Arterial Blood Glucose Urine WBC (Auto) Urine Creatinine Urine Total Protein Phenytoin Coronavirus (PCR) Crossmatch 06/25/20 06/25/20 06/25/20 15:43 16:37 23:02 WBC RBC Hgb Hct MCHC RDW Lymph % (Auto) [place] % (Auto) Eos % (Auto) Lymph # [place] # Lymph # (Auto) [place] # (Auto) Eos # (Auto) Seg Neutrophils % Seg Neuts % (Manual) Lymphocytes % (Manual) Seg Neutrophils # Seg Neutrophils # Man Lymphocytes # (Manual) Monocytes % (Manual) Eosinophils % (Manual) Monocytes # (Manual) Eosinophils # (Manual) D-Dimer Heparin Anti-Xa Level ABG pH POC ABG pCO2 POC ABG pO2 ABG pO2 ABG HCO3 ABG O2 Saturation ABG Base Excess ABG Hemoglobin ABG Oxyhemoglobin VBG pH ABG Sodium ABG Potassium ABG Glucose Oxyhemoglobin Sodium Potassium Chloride Carbon Dioxide BUN 71 H Creatinine 1.8 H Glucose 170 H POC Glucose 191 H 126 H Lactic Acid Calcium 8.2 L Ferritin AST Alkaline Phosphatase Magnesium Lactate Dehydrogenase Total Creatine Kinase CK-MB (CK-2) C-Reactive Protein Total Protein Albumin Troponin T HDL Cholesterol Arterial Blood Glucose Urine WBC (Auto) Urine Creatinine Urine Total Protein Phenytoin Coronavirus (PCR) Crossmatch 06/26/20 06/26/20 06/26/20 06:34 06:34 09:27 WBC RBC 2.41 L Hgb 6.9 L Hct 21.5 L MCHC RDW 16.7 H Lymph % (Auto) 10.9 L [place] % (Auto) 9.6 H Eos % (Auto) Lymph # 0.7 L [place] # Lymph # (Auto) [place] # (Auto) Eos # (Auto) Seg Neutrophils % 75.4 H Seg Neuts % (Manual) Lymphocytes % (Manual) Seg Neutrophils # Seg Neutrophils # Man Lymphocytes # (Manual) Monocytes % (Manual) Eosinophils % (Manual) Monocytes # (Manual) Eosinophils # (Manual) D-Dimer Heparin Anti-Xa Level ABG pH POC ABG pCO2 POC ABG pO2 ABG pO2 ABG HCO3 ABG O2 Saturation ABG Base Excess ABG Hemoglobin ABG Oxyhemoglobin VBG pH ABG Sodium ABG Potassium ABG Glucose Oxyhemoglobin Sodium Potassium Chloride Carbon Dioxide BUN 77 H Creatinine 1.9 H Glucose 190 H POC Glucose Lactic Acid Calcium Ferritin AST Alkaline Phosphatase Magnesium Lactate Dehydrogenase Total Creatine Kinase CK-MB (CK-2) C-Reactive Protein Total Protein Albumin Troponin T HDL Cholesterol Arterial Blood Glucose Urine WBC (Auto) Urine Creatinine Urine Total Protein Phenytoin Coronavirus (PCR) Crossmatch See Detail 06/26/20 06/26/20 06/26/20 12:15 16:28 17:28 WBC RBC Hgb Hct MCHC RDW Lymph % (Auto) [place] % (Auto) Eos % (Auto) Lymph # [place] # Lymph # (Auto) [place] # (Auto) Eos # (Auto) Seg Neutrophils % Seg Neuts % (Manual) Lymphocytes % (Manual) Seg Neutrophils # Seg Neutrophils # Man Lymphocytes # (Manual) Monocytes % (Manual) Eosinophils % (Manual) Monocytes # (Manual) Eosinophils # (Manual) D-Dimer Heparin Anti-Xa Level ABG pH POC ABG pCO2 POC ABG pO2 ABG pO2 ABG HCO3 ABG O2 Saturation ABG Base Excess ABG Hemoglobin ABG Oxyhemoglobin VBG pH ABG Sodium ABG Potassium ABG Glucose Oxyhemoglobin Sodium Potassium Chloride Carbon Dioxide BUN Creatinine Glucose POC Glucose 187 H 149 H 189 H Lactic Acid Calcium Ferritin AST Alkaline Phosphatase Magnesium Lactate Dehydrogenase Total Creatine Kinase CK-MB (CK-2) C-Reactive Protein Total Protein Albumin Troponin T HDL Cholesterol Arterial Blood Glucose Urine WBC (Auto) Urine Creatinine Urine Total Protein Phenytoin Coronavirus (PCR) Crossmatch 06/26/20 06/26/20 06/26/20 18:30 18:30 18:30 WBC RBC 2.87 L Hgb 8.2 L Hct 25.9 L MCHC RDW 17.8 H Lymph % (Auto) [place] % (Auto) Eos % (Auto) Lymph # [place] # Lymph # (Auto) [place] # (Auto) Eos # (Auto) Seg Neutrophils % Seg Neuts % (Manual) 83.0 H Lymphocytes % (Manual) 8.0 L Seg Neutrophils # Seg Neutrophils # Man Lymphocytes # (Manual) 0.6 L Monocytes % (Manual) Eosinophils % (Manual) Monocytes # (Manual) Eosinophils # (Manual) D-Dimer Heparin Anti-Xa Level ABG pH POC ABG pCO2 POC ABG pO2 ABG pO2 ABG HCO3 ABG O2 Saturation ABG Base Excess ABG Hemoglobin ABG Oxyhemoglobin VBG pH ABG Sodium ABG Potassium ABG Glucose Oxyhemoglobin Sodium Potassium Chloride Carbon Dioxide BUN 80 H Creatinine 2.1 H Glucose 260 H POC Glucose Lactic Acid 4.30 H* Calcium 8.3 L Ferritin AST Alkaline Phosphatase Magnesium Lactate Dehydrogenase Total Creatine Kinase CK-MB (CK-2) C-Reactive Protein Total Protein Albumin Troponin T HDL Cholesterol Arterial Blood Glucose Urine WBC (Auto) Urine Creatinine Urine Total Protein Phenytoin Coronavirus (PCR) Crossmatch 06/26/20 06/27/20 06/27/20 18:50 01:00 04:29 WBC RBC Hgb Hct MCHC RDW Lymph % (Auto) [place] % (Auto) Eos % (Auto) Lymph # [place] # Lymph # (Auto) [place] # (Auto) Eos # (Auto) Seg Neutrophils % Seg Neuts % (Manual) Lymphocytes % (Manual) Seg Neutrophils # Seg Neutrophils # Man Lymphocytes # (Manual) Monocytes % (Manual) Eosinophils % (Manual) Monocytes # (Manual) Eosinophils # (Manual) D-Dimer Heparin Anti-Xa Level ABG pH 7.296 L POC ABG pCO2 POC ABG pO2 ABG pO2 116.5 H 200.5 H ABG HCO3 28.4 H ABG O2 Saturation 99.3 H ABG Base Excess 3.7 H ABG Hemoglobin 5.6 L ABG Oxyhemoglobin VBG pH ABG Sodium ABG Potassium ABG Glucose Oxyhemoglobin Sodium Potassium Chloride Carbon Dioxide BUN Creatinine Glucose POC Glucose 123 H Lactic Acid Calcium Ferritin AST Alkaline Phosphatase Magnesium Lactate Dehydrogenase Total Creatine Kinase CK-MB (CK-2) C-Reactive Protein Total Protein Albumin Troponin T HDL Cholesterol Arterial Blood Glucose Urine WBC (Auto) Urine Creatinine Urine Total Protein Phenytoin Coronavirus (PCR) Crossmatch 06/27/20 06/27/20 06/27/20 05:00 05:00 05:00 WBC RBC 2.75 L Hgb 7.9 L Hct 24.3 L MCHC RDW 17.1 H Lymph % (Auto) 8.5 L [place] % (Auto) 12.6 H Eos % (Auto) Lymph # 0.7 L [place] # 1.0 H Lymph # (Auto) [place] # (Auto) Eos # (Auto) Seg Neutrophils % 77.5 H Seg Neuts % (Manual) Lymphocytes % (Manual) Seg Neutrophils # Seg Neutrophils # Man Lymphocytes # (Manual) Monocytes % (Manual) Eosinophils % (Manual) Monocytes # (Manual) Eosinophils # (Manual) D-Dimer Heparin Anti-Xa Level ABG pH POC ABG pCO2 POC ABG pO2 ABG pO2 ABG HCO3 ABG O2 Saturation ABG Base Excess ABG Hemoglobin ABG Oxyhemoglobin VBG pH ABG Sodium ABG Potassium ABG Glucose Oxyhemoglobin Sodium Potassium Chloride Carbon Dioxide BUN 80 H Creatinine 2.0 H Glucose 129 H POC Glucose Lactic Acid 0.60 L Calcium 7.9 L Ferritin AST Alkaline Phosphatase Magnesium Lactate Dehydrogenase Total Creatine Kinase CK-MB (CK-2) C-Reactive Protein Total Protein Albumin Troponin T HDL Cholesterol Arterial Blood Glucose Urine WBC (Auto) Urine Creatinine Urine Total Protein Phenytoin Coronavirus (PCR) Crossmatch 06/27/20 06/27/20 06/27/20 05:23 13:46 17:25 WBC RBC Hgb Hct MCHC RDW Lymph % (Auto) [place] % (Auto) Eos % (Auto) Lymph # [place] # Lymph # (Auto) [place] # (Auto) Eos # (Auto) Seg Neutrophils % Seg Neuts % (Manual) Lymphocytes % (Manual) Seg Neutrophils # Seg Neutrophils # Man Lymphocytes # (Manual) Monocytes % (Manual) Eosinophils % (Manual) Monocytes # (Manual) Eosinophils # (Manual) D-Dimer Heparin Anti-Xa Level ABG pH POC ABG pCO2 POC ABG pO2 ABG pO2 ABG HCO3 ABG O2 Saturation ABG Base Excess ABG Hemoglobin ABG Oxyhemoglobin VBG pH ABG Sodium ABG Potassium ABG Glucose Oxyhemoglobin Sodium Potassium Chloride Carbon Dioxide BUN Creatinine Glucose POC Glucose 109 H 158 H 162 H Lactic Acid Calcium Ferritin AST Alkaline Phosphatase Magnesium Lactate Dehydrogenase Total Creatine Kinase CK-MB (CK-2) C-Reactive Protein Total Protein Albumin Troponin T HDL Cholesterol Arterial Blood Glucose Urine WBC (Auto) Urine Creatinine Urine Total Protein Phenytoin Coronavirus (PCR) Crossmatch 06/27/20 06/27/20 06/28/20 18:43 23:46 04:05 WBC RBC Hgb 7.7 L Hct 22.1 L MCHC RDW Lymph % (Auto) [place] % (Auto) Eos % (Auto) Lymph # [place] # Lymph # (Auto) [place] # (Auto) Eos # (Auto) Seg Neutrophils % Seg Neuts % (Manual) Lymphocytes % (Manual) Seg Neutrophils # Seg Neutrophils # Man Lymphocytes # (Manual) Monocytes % (Manual) Eosinophils % (Manual) Monocytes # (Manual) Eosinophils # (Manual) D-Dimer Heparin Anti-Xa Level ABG pH POC ABG pCO2 POC ABG pO2 ABG pO2 102.7 H ABG HCO3 28.7 H ABG O2 Saturation ABG Base Excess 3.7 H ABG Hemoglobin ABG Oxyhemoglobin VBG pH ABG Sodium ABG Potassium ABG Glucose Oxyhemoglobin Sodium Potassium Chloride Carbon Dioxide BUN Creatinine Glucose POC Glucose 142 H Lactic Acid Calcium Ferritin AST Alkaline Phosphatase Magnesium Lactate Dehydrogenase Total Creatine Kinase CK-MB (CK-2) C-Reactive Protein Total Protein Albumin Troponin T HDL Cholesterol Arterial Blood Glucose Urine WBC (Auto) Urine Creatinine Urine Total Protein Phenytoin Coronavirus (PCR) Crossmatch 06/28/20 06/28/20 06/28/20 09:47 09:47 12:02 WBC RBC 2.53 L Hgb 7.4 L Hct 22.2 L MCHC RDW 16.8 H Lymph % (Auto) [place] % (Auto) 13.5 H Eos % (Auto) Lymph # 1.1 L [place] # 1.0 H Lymph # (Auto) [place] # (Auto) Eos # (Auto) Seg Neutrophils % Seg Neuts % (Manual) Lymphocytes % (Manual) Seg Neutrophils # Seg Neutrophils # Man Lymphocytes # (Manual) Monocytes % (Manual) Eosinophils % (Manual) Monocytes # (Manual) Eosinophils # (Manual) D-Dimer Heparin Anti-Xa Level ABG pH POC ABG pCO2 POC ABG pO2 ABG pO2 ABG HCO3 ABG O2 Saturation ABG Base Excess ABG Hemoglobin ABG Oxyhemoglobin VBG pH ABG Sodium ABG Potassium ABG Glucose Oxyhemoglobin Sodium Potassium Chloride Carbon Dioxide BUN 80 H Creatinine 1.5 H Glucose 139 H POC Glucose 169 H Lactic Acid Calcium 7.9 L Ferritin AST Alkaline Phosphatase Magnesium Lactate Dehydrogenase Total Creatine Kinase CK-MB (CK-2) C-Reactive Protein Total Protein 5.0 L Albumin 2.1 L Troponin T HDL Cholesterol Arterial Blood Glucose Urine WBC (Auto) Urine Creatinine Urine Total Protein Phenytoin Coronavirus (PCR) Crossmatch 06/28/20 06/28/20 06/28/20 12:30 12:30 17:24 WBC RBC 2.38 L Hgb 7.3 L Hct 20.9 L MCHC 35 H RDW 16.7 H Lymph % (Auto) [place] % (Auto) Eos % (Auto) Lymph # [place] # Lymph # (Auto) [place] # (Auto) Eos # (Auto) Seg Neutrophils % Seg Neuts % (Manual) Lymphocytes % (Manual) Seg Neutrophils # Seg Neutrophils # Man Lymphocytes # (Manual) Monocytes % (Manual) Eosinophils % (Manual) Monocytes # (Manual) Eosinophils # (Manual) D-Dimer Heparin Anti-Xa Level ABG pH POC ABG pCO2 POC ABG pO2 ABG pO2 ABG HCO3 ABG O2 Saturation ABG Base Excess ABG Hemoglobin ABG Oxyhemoglobin VBG pH ABG Sodium ABG Potassium ABG Glucose Oxyhemoglobin Sodium Potassium Chloride Carbon Dioxide BUN 74 H Creatinine 1.5 H Glucose 143 H POC Glucose 173 H Lactic Acid Calcium 7.5 L Ferritin AST Alkaline Phosphatase Magnesium Lactate Dehydrogenase Total Creatine Kinase CK-MB (CK-2) C-Reactive Protein Total Protein Albumin Troponin T HDL Cholesterol Arterial Blood Glucose Urine WBC (Auto) Urine Creatinine Urine Total Protein Phenytoin Coronavirus (PCR) Crossmatch 06/29/20 06/29/20 06/29/20 00:02 03:54 04:38 WBC RBC 2.55 L Hgb 7.3 L Hct 22.4 L MCHC RDW 16.4 H Lymph % (Auto) 13.3 L [place] % (Auto) 12.5 H Eos % (Auto) Lymph # 1.1 L [place] # 1.0 H Lymph # (Auto) [place] # (Auto) Eos # (Auto) Seg Neutrophils % Seg Neuts % (Manual) Lymphocytes % (Manual) Seg Neutrophils # Seg Neutrophils # Man Lymphocytes # (Manual) Monocytes % (Manual) Eosinophils % (Manual) Monocytes # (Manual) Eosinophils # (Manual) D-Dimer Heparin Anti-Xa Level ABG pH POC ABG pCO2 POC ABG pO2 ABG pO2 ABG HCO3 26.9 H ABG O2 Saturation ABG Base Excess ABG Hemoglobin 6.9 L ABG Oxyhemoglobin VBG pH ABG Sodium ABG Potassium ABG Glucose Oxyhemoglobin Sodium Potassium Chloride Carbon Dioxide BUN Creatinine Glucose POC Glucose 142 H Lactic Acid Calcium Ferritin AST Alkaline Phosphatase Magnesium Lactate Dehydrogenase Total Creatine Kinase CK-MB (CK-2) C-Reactive Protein Total Protein Albumin Troponin T HDL Cholesterol Arterial Blood Glucose Urine WBC (Auto) Urine Creatinine Urine Total Protein Phenytoin Coronavirus (PCR) Crossmatch 06/29/20 06/29/20 06/29/20 04:38 05:38 12:25 WBC RBC Hgb Hct MCHC RDW Lymph % (Auto) [place] % (Auto) Eos % (Auto) Lymph # [place] # Lymph # (Auto) [place] # (Auto) Eos # (Auto) Seg Neutrophils % Seg Neuts % (Manual) Lymphocytes % (Manual) Seg Neutrophils # Seg Neutrophils # Man Lymphocytes # (Manual) Monocytes % (Manual) Eosinophils % (Manual) Monocytes # (Manual) Eosinophils # (Manual) D-Dimer Heparin Anti-Xa Level ABG pH POC ABG pCO2 POC ABG pO2 ABG pO2 ABG HCO3 ABG O2 Saturation ABG Base Excess ABG Hemoglobin ABG Oxyhemoglobin VBG pH ABG Sodium ABG Potassium ABG Glucose Oxyhemoglobin Sodium Potassium Chloride 107.8 H Carbon Dioxide BUN 72 H Creatinine 1.4 H Glucose 127 H POC Glucose 122 H 138 H Lactic Acid Calcium 7.4 L Ferritin AST Alkaline Phosphatase Magnesium Lactate Dehydrogenase Total Creatine Kinase CK-MB (CK-2) C-Reactive Protein Total Protein Albumin Troponin T HDL Cholesterol Arterial Blood Glucose Urine WBC (Auto) Urine Creatinine Urine Total Protein Phenytoin Coronavirus (PCR) Crossmatch 06/29/20 06/29/20 06/29/20 14:45 14:45 14:45 WBC RBC Hgb Hct MCHC RDW Lymph % (Auto) [place] % (Auto) Eos % (Auto) Lymph # [place] # Lymph # (Auto) [place] # (Auto) Eos # (Auto) Seg Neutrophils % Seg Neuts % (Manual) Lymphocytes % (Manual) Seg Neutrophils # Seg Neutrophils # Man Lymphocytes # (Manual) Monocytes % (Manual) Eosinophils % (Manual) Monocytes # (Manual) Eosinophils # (Manual) D-Dimer 2310.15 H Heparin Anti-Xa Level ABG pH POC ABG pCO2 POC ABG pO2 ABG pO2 ABG HCO3 ABG O2 Saturation ABG Base Excess ABG Hemoglobin ABG Oxyhemoglobin VBG pH ABG Sodium ABG Potassium ABG Glucose Oxyhemoglobin Sodium Potassium Chloride Carbon Dioxide BUN Creatinine Glucose POC Glucose Lactic Acid Calcium Ferritin 223.6 H AST Alkaline Phosphatase Magnesium Lactate Dehydrogenase 367 H Total Creatine Kinase CK-MB (CK-2) C-Reactive Protein 3.60 H Total Protein Albumin Troponin T HDL Cholesterol Arterial Blood Glucose Urine WBC (Auto) Urine Creatinine Urine Total Protein Phenytoin Coronavirus (PCR) Crossmatch 06/29/20 06/29/20 06/29/20 18:27 23:35 Unknown WBC RBC Hgb Hct MCHC RDW Lymph % (Auto) [place] % (Auto) Eos % (Auto) Lymph # [place] # Lymph # (Auto) [place] # (Auto) Eos # (Auto) Seg Neutrophils % Seg Neuts % (Manual) Lymphocytes % (Manual) Seg Neutrophils # Seg Neutrophils # Man Lymphocytes # (Manual) Monocytes % (Manual) Eosinophils % (Manual) Monocytes # (Manual) Eosinophils # (Manual) D-Dimer Heparin Anti-Xa Level ABG pH POC ABG pCO2 POC ABG pO2 ABG pO2 ABG HCO3 ABG O2 Saturation ABG Base Excess ABG Hemoglobin ABG Oxyhemoglobin VBG pH ABG Sodium ABG Potassium ABG Glucose Oxyhemoglobin Sodium Potassium Chloride Carbon Dioxide BUN Creatinine Glucose POC Glucose 112 H 140 H Lactic Acid Calcium Ferritin AST Alkaline Phosphatase Magnesium Lactate Dehydrogenase Total Creatine Kinase CK-MB (CK-2) C-Reactive Protein Total Protein Albumin Troponin T HDL Cholesterol Arterial Blood Glucose Urine WBC (Auto) Urine Creatinine Urine Total Protein Phenytoin Coronavirus (PCR) Positive A Crossmatch 06/30/20 06/30/20 06/30/20 04:10 04:10 06:09 WBC RBC 2.44 L Hgb 7.1 L Hct 21.5 L MCHC RDW 16.6 H Lymph % (Auto) 11.0 L [place] % (Auto) 10.8 H Eos % (Auto) Lymph # 0.9 L [place] # 0.9 H Lymph # (Auto) [place] # (Auto) Eos # (Auto) Seg Neutrophils % 73.7 H Seg Neuts % (Manual) Lymphocytes % (Manual) Seg Neutrophils # Seg Neutrophils # Man Lymphocytes # (Manual) Monocytes % (Manual) Eosinophils % (Manual) Monocytes # (Manual) Eosinophils # (Manual) D-Dimer Heparin Anti-Xa Level ABG pH POC ABG pCO2 POC ABG pO2 ABG pO2 ABG HCO3 ABG O2 Saturation ABG Base Excess ABG Hemoglobin ABG Oxyhemoglobin VBG pH ABG Sodium ABG Potassium ABG Glucose Oxyhemoglobin Sodium Potassium Chloride 109.1 H Carbon Dioxide BUN 74 H Creatinine 1.3 H Glucose 191 H POC Glucose 187 H Lactic Acid Calcium 7.8 L Ferritin AST Alkaline Phosphatase Magnesium Lactate Dehydrogenase Total Creatine Kinase CK-MB (CK-2) C-Reactive Protein Total Protein Albumin Troponin T HDL Cholesterol Arterial Blood Glucose Urine WBC (Auto) Urine Creatinine Urine Total Protein Phenytoin Coronavirus (PCR) Crossmatch 06/30/20 06/30/20 06/30/20 12:04 17:43 23:41 WBC RBC Hgb Hct MCHC RDW Lymph % (Auto) [place] % (Auto) Eos % (Auto) Lymph # [place] # Lymph # (Auto) [place] # (Auto) Eos # (Auto) Seg Neutrophils % Seg Neuts % (Manual) Lymphocytes % (Manual) Seg Neutrophils # Seg Neutrophils # Man Lymphocytes # (Manual) Monocytes % (Manual) Eosinophils % (Manual) Monocytes # (Manual) Eosinophils # (Manual) D-Dimer Heparin Anti-Xa Level ABG pH POC ABG pCO2 POC ABG pO2 ABG pO2 ABG HCO3 ABG O2 Saturation ABG Base Excess ABG Hemoglobin ABG Oxyhemoglobin VBG pH ABG Sodium ABG Potassium ABG Glucose Oxyhemoglobin Sodium Potassium Chloride Carbon Dioxide BUN Creatinine Glucose POC Glucose 112 H 177 H 143 H Lactic Acid Calcium Ferritin AST Alkaline Phosphatase Magnesium Lactate Dehydrogenase Total Creatine Kinase CK-MB (CK-2) C-Reactive Protein Total Protein Albumin Troponin T HDL Cholesterol Arterial Blood Glucose Urine WBC (Auto) Urine Creatinine Urine Total Protein Phenytoin Coronavirus (PCR) Crossmatch 07/01/20 07/01/20 07/01/20 05:02 05:52 06:01 WBC 12.6 H RBC 2.95 L Hgb 8.2 L Hct 26.0 L MCHC RDW 16.9 H Lymph % (Auto) [place] % (Auto) Eos % (Auto) Lymph # [place] # Lymph # (Auto) [place] # (Auto) Eos # (Auto) Seg Neutrophils % Seg Neuts % (Manual) Lymphocytes % (Manual) Seg Neutrophils # Seg Neutrophils # Man 8.6 H Lymphocytes # (Manual) Monocytes % (Manual) Eosinophils % (Manual) 5.0 H Monocytes # (Manual) Eosinophils # (Manual) 0.6 H D-Dimer Heparin Anti-Xa Level ABG pH POC ABG pCO2 POC ABG pO2 ABG pO2 ABG HCO3 ABG O2 Saturation ABG Base Excess ABG Hemoglobin 8.2 L ABG Oxyhemoglobin VBG pH ABG Sodium ABG Potassium ABG Glucose Oxyhemoglobin Sodium Potassium Chloride Carbon Dioxide BUN Creatinine Glucose POC Glucose 129 H Lactic Acid Calcium Ferritin AST Alkaline Phosphatase Magnesium Lactate Dehydrogenase Total Creatine Kinase CK-MB (CK-2) C-Reactive Protein Total Protein Albumin Troponin T HDL Cholesterol Arterial Blood Glucose Urine WBC (Auto) Urine Creatinine Urine Total Protein Phenytoin Coronavirus (PCR) Crossmatch 07/01/20 07/01/20 07/01/20 06:01 06:01 06:08 WBC RBC Hgb Hct MCHC RDW Lymph % (Auto) [place] % (Auto) Eos % (Auto) Lymph # [place] # Lymph # (Auto) [place] # (Auto) Eos # (Auto) Seg Neutrophils % Seg Neuts % (Manual) Lymphocytes % (Manual) Seg Neutrophils # Seg Neutrophils # Man Lymphocytes # (Manual) Monocytes % (Manual) Eosinophils % (Manual) Monocytes # (Manual) Eosinophils # (Manual) D-Dimer Heparin Anti-Xa Level ABG pH POC ABG pCO2 POC ABG pO2 ABG pO2 ABG HCO3 ABG O2 Saturation ABG Base Excess ABG Hemoglobin ABG Oxyhemoglobin VBG pH ABG Sodium ABG Potassium ABG Glucose Oxyhemoglobin Sodium 147 H Potassium Chloride 108.0 H Carbon Dioxide BUN 71 H Creatinine 1.3 H Glucose 193 H POC Glucose 192 H Lactic Acid Calcium 8.1 L Ferritin AST Alkaline Phosphatase Magnesium Lactate Dehydrogenase Total Creatine Kinase 300 H CK-MB (CK-2) C-Reactive Protein Total Protein Albumin Troponin T 0.067 H HDL Cholesterol 61 H Arterial Blood Glucose Urine WBC (Auto) Urine Creatinine Urine Total Protein Phenytoin Coronavirus (PCR) Crossmatch 07/01/20 07/01/20 07/02/20 12:23 17:40 00:18 WBC RBC Hgb Hct MCHC RDW Lymph % (Auto) [place] % (Auto) Eos % (Auto) Lymph # [place] # Lymph # (Auto) [place] # (Auto) Eos # (Auto) Seg Neutrophils % Seg Neuts % (Manual) Lymphocytes % (Manual) Seg Neutrophils # Seg Neutrophils # Man Lymphocytes # (Manual) Monocytes % (Manual) Eosinophils % (Manual) Monocytes # (Manual) Eosinophils # (Manual) D-Dimer Heparin Anti-Xa Level ABG pH POC ABG pCO2 POC ABG pO2 ABG pO2 ABG HCO3 ABG O2 Saturation ABG Base Excess ABG Hemoglobin ABG Oxyhemoglobin VBG pH ABG Sodium ABG Potassium ABG Glucose Oxyhemoglobin Sodium Potassium Chloride Carbon Dioxide BUN Creatinine Glucose POC Glucose 111 H 135 H 145 H Lactic Acid Calcium Ferritin AST Alkaline Phosphatase Magnesium Lactate Dehydrogenase Total Creatine Kinase CK-MB (CK-2) C-Reactive Protein Total Protein Albumin Troponin T HDL Cholesterol Arterial Blood Glucose Urine WBC (Auto) Urine Creatinine Urine Total Protein Phenytoin Coronavirus (PCR) Crossmatch 07/02/20 07/02/20 07/02/20 04:11 04:23 05:54 WBC RBC Hgb Hct MCHC RDW Lymph % (Auto) [place] % (Auto) Eos % (Auto) Lymph # [place] # Lymph # (Auto) [place] # (Auto) Eos # (Auto) Seg Neutrophils % Seg Neuts % (Manual) Lymphocytes % (Manual) Seg Neutrophils # Seg Neutrophils # Man Lymphocytes # (Manual) Monocytes % (Manual) Eosinophils % (Manual) Monocytes # (Manual) Eosinophils # (Manual) D-Dimer Heparin Anti-Xa Level ABG pH POC ABG pCO2 POC ABG pO2 ABG pO2 ABG HCO3 ABG O2 Saturation ABG Base Excess ABG Hemoglobin 5.4 L ABG Oxyhemoglobin VBG pH ABG Sodium ABG Potassium ABG Glucose Oxyhemoglobin Sodium Potassium Chloride 108.6 H Carbon Dioxide BUN 72 H Creatinine Glucose 112 H POC Glucose 137 H Lactic Acid Calcium 7.8 L Ferritin AST Alkaline Phosphatase Magnesium Lactate Dehydrogenase Total Creatine Kinase CK-MB (CK-2) C-Reactive Protein Total Protein Albumin Troponin T HDL Cholesterol Arterial Blood Glucose Urine WBC (Auto) Urine Creatinine Urine Total Protein Phenytoin Coronavirus (PCR) Crossmatch 07/02/20 07/02/20 07/02/20 11:38 18:04 23:59 WBC RBC Hgb Hct MCHC RDW Lymph % (Auto) [place] % (Auto) Eos % (Auto) Lymph # [place] # Lymph # (Auto) [place] # (Auto) Eos # (Auto) Seg Neutrophils % Seg Neuts % (Manual) Lymphocytes % (Manual) Seg Neutrophils # Seg Neutrophils # Man Lymphocytes # (Manual) Monocytes % (Manual) Eosinophils % (Manual) Monocytes # (Manual) Eosinophils # (Manual) D-Dimer Heparin Anti-Xa Level ABG pH POC ABG pCO2 POC ABG pO2 ABG pO2 ABG HCO3 ABG O2 Saturation ABG Base Excess ABG Hemoglobin ABG Oxyhemoglobin VBG pH ABG Sodium ABG Potassium ABG Glucose Oxyhemoglobin Sodium Potassium Chloride Carbon Dioxide BUN Creatinine Glucose POC Glucose 128 H 135 H 156 H Lactic Acid Calcium Ferritin AST Alkaline Phosphatase Magnesium Lactate Dehydrogenase Total Creatine Kinase CK-MB (CK-2) C-Reactive Protein Total Protein Albumin Troponin T HDL Cholesterol Arterial Blood Glucose Urine WBC (Auto) Urine Creatinine Urine Total Protein Phenytoin Coronavirus (PCR) Crossmatch 07/03/20 07/03/20 07/03/20 03:49 06:00 11:31 WBC RBC Hgb Hct MCHC RDW Lymph % (Auto) [place] % (Auto) Eos % (Auto) Lymph # [place] # Lymph # (Auto) [place] # (Auto) Eos # (Auto) Seg Neutrophils % Seg Neuts % (Manual) Lymphocytes % (Manual) Seg Neutrophils # Seg Neutrophils # Man Lymphocytes # (Manual) Monocytes % (Manual) Eosinophils % (Manual) Monocytes # (Manual) Eosinophils # (Manual) D-Dimer Heparin Anti-Xa Level ABG pH POC ABG pCO2 POC ABG pO2 ABG pO2 121.0 H ABG HCO3 ABG O2 Saturation ABG Base Excess ABG Hemoglobin 8.5 L ABG Oxyhemoglobin VBG pH ABG Sodium ABG Potassium ABG Glucose Oxyhemoglobin Sodium Potassium Chloride Carbon Dioxide BUN Creatinine Glucose POC Glucose 135 H 141 H Lactic Acid Calcium Ferritin AST Alkaline Phosphatase Magnesium Lactate Dehydrogenase Total Creatine Kinase CK-MB (CK-2) C-Reactive Protein Total Protein Albumin Troponin T HDL Cholesterol Arterial Blood Glucose Urine WBC (Auto) Urine Creatinine Urine Total Protein Phenytoin Coronavirus (PCR) Crossmatch 07/03/20 07/03/20 07/03/20 16:00 16:07 17:40 WBC RBC Hgb Hct MCHC RDW Lymph % (Auto) [place] % (Auto) Eos % (Auto) Lymph # [place] # Lymph # (Auto) [place] # (Auto) Eos # (Auto) Seg Neutrophils % Seg Neuts % (Manual) Lymphocytes % (Manual) Seg Neutrophils # Seg Neutrophils # Man Lymphocytes # (Manual) Monocytes % (Manual) Eosinophils % (Manual) Monocytes # (Manual) Eosinophils # (Manual) D-Dimer Heparin Anti-Xa Level ABG pH 7.271 L POC ABG pCO2 POC ABG pO2 ABG pO2 126.9 H ABG HCO3 ABG O2 Saturation ABG Base Excess ABG Hemoglobin 8.2 L 8.1 L ABG Oxyhemoglobin VBG pH ABG Sodium 130.3 L ABG Potassium 4.9 H ABG Glucose 163 H Oxyhemoglobin Sodium Potassium Chloride Carbon Dioxide BUN Creatinine Glucose POC Glucose 120 H Lactic Acid Calcium Ferritin AST Alkaline Phosphatase Magnesium Lactate Dehydrogenase Total Creatine Kinase CK-MB (CK-2) C-Reactive Protein Total Protein Albumin Troponin T HDL Cholesterol Arterial Blood Glucose 163 H Urine WBC (Auto) Urine Creatinine Urine Total Protein Phenytoin Coronavirus (PCR) Crossmatch 07/04/20 07/04/20 07/04/20 05:49 11:54 18:00 WBC RBC Hgb Hct MCHC RDW Lymph % (Auto) [place] % (Auto) Eos % (Auto) Lymph # [place] # Lymph # (Auto) [place] # (Auto) Eos # (Auto) Seg Neutrophils % Seg Neuts % (Manual) Lymphocytes % (Manual) Seg Neutrophils # Seg Neutrophils # Man Lymphocytes # (Manual) Monocytes % (Manual) Eosinophils % (Manual) Monocytes # (Manual) Eosinophils # (Manual) D-Dimer Heparin Anti-Xa Level ABG pH POC ABG pCO2 POC ABG pO2 ABG pO2 ABG HCO3 ABG O2 Saturation ABG Base Excess ABG Hemoglobin ABG Oxyhemoglobin VBG pH ABG Sodium ABG Potassium ABG Glucose Oxyhemoglobin Sodium Potassium Chloride Carbon Dioxide BUN Creatinine Glucose POC Glucose 128 H 168 H 133 H Lactic Acid Calcium Ferritin AST Alkaline Phosphatase Magnesium Lactate Dehydrogenase Total Creatine Kinase CK-MB (CK-2) C-Reactive Protein Total Protein Albumin Troponin T HDL Cholesterol Arterial Blood Glucose Urine WBC (Auto) Urine Creatinine Urine Total Protein Phenytoin Coronavirus (PCR) Crossmatch 07/05/20 07/05/20 07/05/20 00:07 01:12 02:30 WBC RBC 2.35 L Hgb 6.9 L Hct 21.1 L MCHC RDW 16.8 H Lymph % (Auto) [place] % (Auto) Eos % (Auto) Lymph # [place] # Lymph # (Auto) [place] # (Auto) Eos # (Auto) Seg Neutrophils % Seg Neuts % (Manual) 74.0 H Lymphocytes % (Manual) 12.0 L Seg Neutrophils # Seg Neutrophils # Man 8.0 H Lymphocytes # (Manual) Monocytes % (Manual) 9.0 H Eosinophils % (Manual) Monocytes # (Manual) 1.0 H Eosinophils # (Manual) D-Dimer Heparin Anti-Xa Level ABG pH POC ABG pCO2 POC ABG pO2 ABG pO2 ABG HCO3 ABG O2 Saturation ABG Base Excess ABG Hemoglobin ABG Oxyhemoglobin VBG pH ABG Sodium ABG Potassium ABG Glucose Oxyhemoglobin Sodium Potassium Chloride Carbon Dioxide BUN Creatinine Glucose POC Glucose 121 H Lactic Acid Calcium Ferritin AST Alkaline Phosphatase Magnesium Lactate Dehydrogenase Total Creatine Kinase CK-MB (CK-2) C-Reactive Protein Total Protein Albumin Troponin T HDL Cholesterol Arterial Blood Glucose Urine WBC (Auto) Urine Creatinine Urine Total Protein Phenytoin Coronavirus (PCR) Crossmatch See Detail 07/05/20 07/05/20 07/05/20 12:09 13:05 18:04 WBC RBC Hgb Hct MCHC RDW Lymph % (Auto) [place] % (Auto) Eos % (Auto) Lymph # [place] # Lymph # (Auto) [place] # (Auto) Eos # (Auto) Seg Neutrophils % Seg Neuts % (Manual) Lymphocytes % (Manual) Seg Neutrophils # Seg Neutrophils # Man Lymphocytes # (Manual) Monocytes % (Manual) Eosinophils % (Manual) Monocytes # (Manual) Eosinophils # (Manual) D-Dimer Heparin Anti-Xa Level ABG pH 7.32 L POC ABG pCO2 POC ABG pO2 ABG pO2 78.3 L ABG HCO3 ABG O2 Saturation ABG Base Excess -2.6 L ABG Hemoglobin 7.3 L ABG Oxyhemoglobin VBG pH ABG Sodium ABG Potassium ABG Glucose Oxyhemoglobin Sodium Potassium Chloride Carbon Dioxide BUN Creatinine Glucose POC Glucose 132 H 160 H Lactic Acid Calcium Ferritin AST Alkaline Phosphatase Magnesium Lactate Dehydrogenase Total Creatine Kinase CK-MB (CK-2) C-Reactive Protein Total Protein Albumin Troponin T HDL Cholesterol Arterial Blood Glucose Urine WBC (Auto) Urine Creatinine Urine Total Protein Phenytoin Coronavirus (PCR) Crossmatch 07/05/20 07/05/20 07/05/20 23:13 23:13 23:43 WBC RBC 2.57 L Hgb 7.7 L Hct 23.0 L MCHC RDW 16.9 H Lymph % (Auto) [place] % (Auto) Eos % (Auto) Lymph # [place] # Lymph # (Auto) [place] # (Auto) Eos # (Auto) Seg Neutrophils % Seg Neuts % (Manual) Lymphocytes % (Manual) Seg Neutrophils # Seg Neutrophils # Man Lymphocytes # (Manual) Monocytes % (Manual) Eosinophils % (Manual) Monocytes # (Manual) Eosinophils # (Manual) D-Dimer Heparin Anti-Xa Level ABG pH POC ABG pCO2 POC ABG pO2 ABG pO2 ABG HCO3 ABG O2 Saturation ABG Base Excess ABG Hemoglobin ABG Oxyhemoglobin VBG pH ABG Sodium ABG Potassium ABG Glucose Oxyhemoglobin Sodium Potassium Chloride Carbon Dioxide 20 L BUN 80 H Creatinine 2.4 H D Glucose 124 H POC Glucose 121 H Lactic Acid Calcium 7.6 L Ferritin AST Alkaline Phosphatase Magnesium Lactate Dehydrogenase Total Creatine Kinase CK-MB (CK-2) C-Reactive Protein Total Protein Albumin Troponin T HDL Cholesterol Arterial Blood Glucose Urine WBC (Auto) Urine Creatinine Urine Total Protein Phenytoin Coronavirus (PCR) Crossmatch 07/06/20 07/06/20 07/06/20 13:20 14:48 17:28 WBC RBC Hgb Hct MCHC RDW Lymph % (Auto) [place] % (Auto) Eos % (Auto) Lymph # [place] # Lymph # (Auto) [place] # (Auto) Eos # (Auto) Seg Neutrophils % Seg Neuts % (Manual) Lymphocytes % (Manual) Seg Neutrophils # Seg Neutrophils # Man Lymphocytes # (Manual) Monocytes % (Manual) Eosinophils % (Manual) Monocytes # (Manual) Eosinophils # (Manual) D-Dimer Heparin Anti-Xa Level ABG pH POC ABG pCO2 POC ABG pO2 ABG pO2 ABG HCO3 ABG O2 Saturation ABG Base Excess ABG Hemoglobin ABG Oxyhemoglobin VBG pH ABG Sodium ABG Potassium ABG Glucose Oxyhemoglobin Sodium 136 L Potassium 5.5 H Chloride Carbon Dioxide 19 L BUN 82 H Creatinine 2.5 H Glucose 113 H POC Glucose 133 H Lactic Acid Calcium 7.7 L Ferritin AST Alkaline Phosphatase Magnesium Lactate Dehydrogenase Total Creatine Kinase CK-MB (CK-2) C-Reactive Protein Total Protein Albumin Troponin T HDL Cholesterol Arterial Blood Glucose Urine WBC (Auto) Urine Creatinine 33.3 H Urine Total Protein Phenytoin Coronavirus (PCR) Crossmatch 07/07/20 07/07/20 07/07/20 00:12 04:15 04:15 WBC RBC 2.28 L Hgb 6.8 L Hct 20.7 L MCHC RDW 16.8 H Lymph % (Auto) [place] % (Auto) Eos % (Auto) Lymph # [place] # Lymph # (Auto) [place] # (Auto) Eos # (Auto) Seg Neutrophils % Seg Neuts % (Manual) Lymphocytes % (Manual) 13.0 L Seg Neutrophils # Seg Neutrophils # Man Lymphocytes # (Manual) 1.0 L Monocytes % (Manual) 11.0 H Eosinophils % (Manual) Monocytes # (Manual) 0.9 H Eosinophils # (Manual) D-Dimer Heparin Anti-Xa Level ABG pH POC ABG pCO2 POC ABG pO2 ABG pO2 ABG HCO3 ABG O2 Saturation ABG Base Excess ABG Hemoglobin ABG Oxyhemoglobin VBG pH ABG Sodium ABG Potassium ABG Glucose Oxyhemoglobin Sodium Potassium Chloride Carbon Dioxide BUN Creatinine Glucose POC Glucose 154 H Lactic Acid Calcium Ferritin AST Alkaline Phosphatase Magnesium 2.50 H Lactate Dehydrogenase Total Creatine Kinase CK-MB (CK-2) C-Reactive Protein Total Protein Albumin Troponin T HDL Cholesterol Arterial Blood Glucose Urine WBC (Auto) Urine Creatinine Urine Total Protein Phenytoin Coronavirus (PCR) Crossmatch 07/07/20 07/07/20 07/07/20 05:31 12:31 13:22 WBC RBC Hgb Hct MCHC RDW Lymph % (Auto) [place] % (Auto) Eos % (Auto) Lymph # [place] # Lymph # (Auto) [place] # (Auto) Eos # (Auto) Seg Neutrophils % Seg Neuts % (Manual) Lymphocytes % (Manual) Seg Neutrophils # Seg Neutrophils # Man Lymphocytes # (Manual) Monocytes % (Manual) Eosinophils % (Manual) Monocytes # (Manual) Eosinophils # (Manual) D-Dimer Heparin Anti-Xa Level ABG pH POC ABG pCO2 POC ABG pO2 ABG pO2 ABG HCO3 ABG O2 Saturation ABG Base Excess ABG Hemoglobin ABG Oxyhemoglobin VBG pH ABG Sodium ABG Potassium ABG Glucose Oxyhemoglobin Sodium Potassium 5.6 H Chloride Carbon Dioxide BUN 86 H Creatinine 2.9 H Glucose 127 H POC Glucose 135 H 131 H Lactic Acid Calcium 8.1 L Ferritin AST Alkaline Phosphatase Magnesium Lactate Dehydrogenase Total Creatine Kinase CK-MB (CK-2) C-Reactive Protein Total Protein Albumin Troponin T HDL Cholesterol Arterial Blood Glucose Urine WBC (Auto) Urine Creatinine Urine Total Protein Phenytoin Coronavirus (PCR) Crossmatch 07/07/20 07/07/20 07/08/20 17:55 23:33 04:14 WBC RBC 3.28 L Hgb 9.7 L Hct 28.9 L D MCHC RDW 16.4 H Lymph % (Auto) 10.3 L [place] % (Auto) 10.0 H Eos % (Auto) Lymph # [place] # Lymph # (Auto) 1.1 L [place] # (Auto) 1.1 H Eos # (Auto) Seg Neutrophils % 77.2 H Seg Neuts % (Manual) Lymphocytes % (Manual) Seg Neutrophils # 8.2 H Seg Neutrophils # Man Lymphocytes # (Manual) Monocytes % (Manual) Eosinophils % (Manual) Monocytes # (Manual) Eosinophils # (Manual) D-Dimer Heparin Anti-Xa Level ABG pH POC ABG pCO2 POC ABG pO2 ABG pO2 ABG HCO3 ABG O2 Saturation ABG Base Excess ABG Hemoglobin ABG Oxyhemoglobin VBG pH ABG Sodium ABG Potassium ABG Glucose Oxyhemoglobin Sodium Potassium Chloride Carbon Dioxide BUN Creatinine Glucose POC Glucose 136 H 159 H Lactic Acid Calcium Ferritin AST Alkaline Phosphatase Magnesium Lactate Dehydrogenase Total Creatine Kinase CK-MB (CK-2) C-Reactive Protein Total Protein Albumin Troponin T HDL Cholesterol Arterial Blood Glucose Urine WBC (Auto) Urine Creatinine Urine Total Protein Phenytoin Coronavirus (PCR) Crossmatch 07/08/20 07/08/20 07/08/20 04:14 12:10 18:10 WBC RBC Hgb Hct MCHC RDW Lymph % (Auto) [place] % (Auto) Eos % (Auto) Lymph # [place] # Lymph # (Auto) [place] # (Auto) Eos # (Auto) Seg Neutrophils % Seg Neuts % (Manual) Lymphocytes % (Manual) Seg Neutrophils # Seg Neutrophils # Man Lymphocytes # (Manual) Monocytes % (Manual) Eosinophils % (Manual) Monocytes # (Manual) Eosinophils # (Manual) D-Dimer Heparin Anti-Xa Level ABG pH POC ABG pCO2 POC ABG pO2 ABG pO2 ABG HCO3 ABG O2 Saturation ABG Base Excess ABG Hemoglobin ABG Oxyhemoglobin VBG pH ABG Sodium ABG Potassium ABG Glucose Oxyhemoglobin Sodium 136 L Potassium Chloride Carbon Dioxide BUN 84 H Creatinine 2.8 H Glucose 109 H POC Glucose 108 H 125 H Lactic Acid Calcium 8.1 L Ferritin AST Alkaline Phosphatase Magnesium 2.50 H Lactate Dehydrogenase Total Creatine Kinase CK-MB (CK-2) C-Reactive Protein Total Protein Albumin Troponin T HDL Cholesterol Arterial Blood Glucose Urine WBC (Auto) Urine Creatinine Urine Total Protein Phenytoin Coronavirus (PCR) Crossmatch 07/08/20 07/09/20 07/09/20 23:50 05:39 11:57 WBC RBC Hgb Hct MCHC RDW Lymph % (Auto) [place] % (Auto) Eos % (Auto) Lymph # [place] # Lymph # (Auto) [place] # (Auto) Eos # (Auto) Seg Neutrophils % Seg Neuts % (Manual) Lymphocytes % (Manual) Seg Neutrophils # Seg Neutrophils # Man Lymphocytes # (Manual) Monocytes % (Manual) Eosinophils % (Manual) Monocytes # (Manual) Eosinophils # (Manual) D-Dimer Heparin Anti-Xa Level ABG pH POC ABG pCO2 POC ABG pO2 ABG pO2 ABG HCO3 ABG O2 Saturation ABG Base Excess ABG Hemoglobin ABG Oxyhemoglobin VBG pH ABG Sodium ABG Potassium ABG Glucose Oxyhemoglobin Sodium Potassium Chloride Carbon Dioxide BUN Creatinine Glucose POC Glucose 141 H 121 H 123 H Lactic Acid Calcium Ferritin AST Alkaline Phosphatase Magnesium Lactate Dehydrogenase Total Creatine Kinase CK-MB (CK-2) C-Reactive Protein Total Protein Albumin Troponin T HDL Cholesterol Arterial Blood Glucose Urine WBC (Auto) Urine Creatinine Urine Total Protein Phenytoin Coronavirus (PCR) Crossmatch 07/09/20 07/10/20 07/10/20 17:56 00:29 05:50 WBC RBC Hgb Hct MCHC RDW Lymph % (Auto) [place] % (Auto) Eos % (Auto) Lymph # [place] # Lymph # (Auto) [place] # (Auto) Eos # (Auto) Seg Neutrophils % Seg Neuts % (Manual) Lymphocytes % (Manual) Seg Neutrophils # Seg Neutrophils # Man Lymphocytes # (Manual) Monocytes % (Manual) Eosinophils % (Manual) Monocytes # (Manual) Eosinophils # (Manual) D-Dimer Heparin Anti-Xa Level ABG pH POC ABG pCO2 POC ABG pO2 ABG pO2 ABG HCO3 ABG O2 Saturation ABG Base Excess ABG Hemoglobin ABG Oxyhemoglobin VBG pH ABG Sodium ABG Potassium ABG Glucose Oxyhemoglobin Sodium Potassium Chloride Carbon Dioxide BUN Creatinine Glucose POC Glucose 119 H 122 H 124 H Lactic Acid Calcium Ferritin AST Alkaline Phosphatase Magnesium Lactate Dehydrogenase Total Creatine Kinase CK-MB (CK-2) C-Reactive Protein Total Protein Albumin Troponin T HDL Cholesterol Arterial Blood Glucose Urine WBC (Auto) Urine Creatinine Urine Total Protein Phenytoin Coronavirus (PCR) Crossmatch 07/10/20 07/10/20 07/10/20 10:41 10:41 12:25 WBC RBC 3.11 L Hgb 9.2 L Hct 27.6 L MCHC RDW 16.6 H Lymph % (Auto) [place] % (Auto) Eos % (Auto) Lymph # [place] # Lymph # (Auto) [place] # (Auto) Eos # (Auto) Seg Neutrophils % Seg Neuts % (Manual) 78.0 H Lymphocytes % (Manual) 11.0 L Seg Neutrophils # Seg Neutrophils # Man Lymphocytes # (Manual) 1.0 L Monocytes % (Manual) Eosinophils % (Manual) Monocytes # (Manual) Eosinophils # (Manual) D-Dimer Heparin Anti-Xa Level ABG pH POC ABG pCO2 POC ABG pO2 ABG pO2 ABG HCO3 ABG O2 Saturation ABG Base Excess ABG Hemoglobin ABG Oxyhemoglobin VBG pH ABG Sodium ABG Potassium ABG Glucose Oxyhemoglobin Sodium Potassium Chloride Carbon Dioxide BUN 85 H Creatinine 2.5 H Glucose 133 H POC Glucose 131 H Lactic Acid Calcium Ferritin AST Alkaline Phosphatase 131 H Magnesium Lactate Dehydrogenase Total Creatine Kinase CK-MB (CK-2) C-Reactive Protein Total Protein 5.2 L Albumin 1.6 L Troponin T HDL Cholesterol Arterial Blood Glucose Urine WBC (Auto) Urine Creatinine Urine Total Protein Phenytoin Coronavirus (PCR) Crossmatch 07/10/20 07/11/20 07/11/20 18:10 00:28 05:57 WBC RBC Hgb Hct MCHC RDW Lymph % (Auto) [place] % (Auto) Eos % (Auto) Lymph # [place] # Lymph # (Auto) [place] # (Auto) Eos # (Auto) Seg Neutrophils % Seg Neuts % (Manual) Lymphocytes % (Manual) Seg Neutrophils # Seg Neutrophils # Man Lymphocytes # (Manual) Monocytes % (Manual) Eosinophils % (Manual) Monocytes # (Manual) Eosinophils # (Manual) D-Dimer Heparin Anti-Xa Level ABG pH POC ABG pCO2 POC ABG pO2 ABG pO2 ABG HCO3 ABG O2 Saturation ABG Base Excess ABG Hemoglobin ABG Oxyhemoglobin VBG pH ABG Sodium ABG Potassium ABG Glucose Oxyhemoglobin Sodium Potassium Chloride Carbon Dioxide BUN Creatinine Glucose POC Glucose 134 H 140 H 148 H Lactic Acid Calcium Ferritin AST Alkaline Phosphatase Magnesium Lactate Dehydrogenase Total Creatine Kinase CK-MB (CK-2) C-Reactive Protein Total Protein Albumin Troponin T HDL Cholesterol Arterial Blood Glucose Urine WBC (Auto) Urine Creatinine Urine Total Protein Phenytoin Coronavirus (PCR) Crossmatch 07/11/20 07/11/20 07/11/20 12:14 17:28 23:49 WBC RBC Hgb Hct MCHC RDW Lymph % (Auto) [place] % (Auto) Eos % (Auto) Lymph # [place] # Lymph # (Auto) [place] # (Auto) Eos # (Auto) Seg Neutrophils % Seg Neuts % (Manual) Lymphocytes % (Manual) Seg Neutrophils # Seg Neutrophils # Man Lymphocytes # (Manual) Monocytes % (Manual) Eosinophils % (Manual) Monocytes # (Manual) Eosinophils # (Manual) D-Dimer Heparin Anti-Xa Level ABG pH POC ABG pCO2 POC ABG pO2 ABG pO2 ABG HCO3 ABG O2 Saturation ABG Base Excess ABG Hemoglobin ABG Oxyhemoglobin VBG pH ABG Sodium ABG Potassium ABG Glucose Oxyhemoglobin Sodium Potassium Chloride Carbon Dioxide BUN Creatinine Glucose POC Glucose 147 H 175 H 114 H Lactic Acid Calcium Ferritin AST Alkaline Phosphatase Magnesium Lactate Dehydrogenase Total Creatine Kinase CK-MB (CK-2) C-Reactive Protein Total Protein Albumin Troponin T HDL Cholesterol Arterial Blood Glucose Urine WBC (Auto) Urine Creatinine Urine Total Protein Phenytoin Coronavirus (PCR) Crossmatch 07/12/20 07/12/20 07/12/20 05:14 05:14 05:44 WBC RBC 2.78 L Hgb 8.5 L Hct 25.3 L MCHC RDW 16.7 H Lymph % (Auto) [place] % (Auto) Eos % (Auto) Lymph # [place] # Lymph # (Auto) [place] # (Auto) Eos # (Auto) Seg Neutrophils % Seg Neuts % (Manual) 81.0 H Lymphocytes % (Manual) 6.0 L Seg Neutrophils # Seg Neutrophils # Man Lymphocytes # (Manual) 0.6 L Monocytes % (Manual) 8.0 H Eosinophils % (Manual) Monocytes # (Manual) Eosinophils # (Manual) D-Dimer Heparin Anti-Xa Level ABG pH POC ABG pCO2 POC ABG pO2 ABG pO2 ABG HCO3 ABG O2 Saturation ABG Base Excess ABG Hemoglobin ABG Oxyhemoglobin VBG pH ABG Sodium ABG Potassium ABG Glucose Oxyhemoglobin Sodium Potassium Chloride Carbon Dioxide BUN 79 H Creatinine 2.2 H Glucose 131 H POC Glucose 116 H Lactic Acid Calcium Ferritin AST Alkaline Phosphatase Magnesium Lactate Dehydrogenase Total Creatine Kinase CK-MB (CK-2) C-Reactive Protein Total Protein Albumin Troponin T HDL Cholesterol Arterial Blood Glucose Urine WBC (Auto) Urine Creatinine Urine Total Protein Phenytoin Coronavirus (PCR) Crossmatch 07/12/20 07/12/20 07/13/20 11:32 17:53 00:18 WBC RBC Hgb Hct MCHC RDW Lymph % (Auto) [place] % (Auto) Eos % (Auto) Lymph # [place] # Lymph # (Auto) [place] # (Auto) Eos # (Auto) Seg Neutrophils % Seg Neuts % (Manual) Lymphocytes % (Manual) Seg Neutrophils # Seg Neutrophils # Man Lymphocytes # (Manual) Monocytes % (Manual) Eosinophils % (Manual) Monocytes # (Manual) Eosinophils # (Manual) D-Dimer Heparin Anti-Xa Level ABG pH POC ABG pCO2 POC ABG pO2 ABG pO2 ABG HCO3 ABG O2 Saturation ABG Base Excess ABG Hemoglobin ABG Oxyhemoglobin VBG pH ABG Sodium ABG Potassium ABG Glucose Oxyhemoglobin Sodium Potassium Chloride Carbon Dioxide BUN Creatinine Glucose POC Glucose 132 H 155 H 162 H Lactic Acid Calcium Ferritin AST Alkaline Phosphatase Magnesium Lactate Dehydrogenase Total Creatine Kinase CK-MB (CK-2) C-Reactive Protein Total Protein Albumin Troponin T HDL Cholesterol Arterial Blood Glucose Urine WBC (Auto) Urine Creatinine Urine Total Protein Phenytoin Coronavirus (PCR) Crossmatch 07/13/20 07/13/20 07/13/20 04:53 04:53 06:14 WBC RBC 2.86 L Hgb 8.4 L Hct 25.7 L MCHC RDW 16.8 H Lymph % (Auto) [place] % (Auto) Eos % (Auto) Lymph # [place] # Lymph # (Auto) [place] # (Auto) Eos # (Auto) Seg Neutrophils % Seg Neuts % (Manual) 84.0 H Lymphocytes % (Manual) 7.0 L Seg Neutrophils # Seg Neutrophils # Man Lymphocytes # (Manual) 0.6 L Monocytes % (Manual) Eosinophils % (Manual) Monocytes # (Manual) Eosinophils # (Manual) D-Dimer Heparin Anti-Xa Level ABG pH POC ABG pCO2 POC ABG pO2 ABG pO2 ABG HCO3 ABG O2 Saturation ABG Base Excess ABG Hemoglobin ABG Oxyhemoglobin VBG pH ABG Sodium ABG Potassium ABG Glucose Oxyhemoglobin Sodium 136 L Potassium Chloride Carbon Dioxide BUN 78 H Creatinine 2.0 H Glucose 130 H POC Glucose 141 H Lactic Acid Calcium Ferritin AST Alkaline Phosphatase Magnesium Lactate Dehydrogenase Total Creatine Kinase CK-MB (CK-2) C-Reactive Protein Total Protein Albumin Troponin T HDL Cholesterol Arterial Blood Glucose Urine WBC (Auto) Urine Creatinine Urine Total Protein Phenytoin Coronavirus (PCR) Crossmatch 07/13/20 07/13/20 07/14/20 12:50 18:27 00:22 WBC RBC Hgb Hct MCHC RDW Lymph % (Auto) [place] % (Auto) Eos % (Auto) Lymph # [place] # Lymph # (Auto) [place] # (Auto) Eos # (Auto) Seg Neutrophils % Seg Neuts % (Manual) Lymphocytes % (Manual) Seg Neutrophils # Seg Neutrophils # Man Lymphocytes # (Manual) Monocytes % (Manual) Eosinophils % (Manual) Monocytes # (Manual) Eosinophils # (Manual) D-Dimer Heparin Anti-Xa Level ABG pH POC ABG pCO2 POC ABG pO2 ABG pO2 ABG HCO3 ABG O2 Saturation ABG Base Excess ABG Hemoglobin ABG Oxyhemoglobin VBG pH ABG Sodium ABG Potassium ABG Glucose Oxyhemoglobin Sodium Potassium Chloride Carbon Dioxide BUN Creatinine Glucose POC Glucose 146 H 149 H 157 H Lactic Acid Calcium Ferritin AST Alkaline Phosphatase Magnesium Lactate Dehydrogenase Total Creatine Kinase CK-MB (CK-2) C-Reactive Protein Total Protein Albumin Troponin T HDL Cholesterol Arterial Blood Glucose Urine WBC (Auto) Urine Creatinine Urine Total Protein Phenytoin Coronavirus (PCR) Crossmatch 07/14/20 07/14/20 07/14/20 05:43 08:04 12:12 WBC RBC Hgb Hct MCHC RDW Lymph % (Auto) [place] % (Auto) Eos % (Auto) Lymph # [place] # Lymph # (Auto) [place] # (Auto) Eos # (Auto) Seg Neutrophils % Seg Neuts % (Manual) Lymphocytes % (Manual) Seg Neutrophils # Seg Neutrophils # Man Lymphocytes # (Manual) Monocytes % (Manual) Eosinophils % (Manual) Monocytes # (Manual) Eosinophils # (Manual) D-Dimer Heparin Anti-Xa Level ABG pH POC ABG pCO2 POC ABG pO2 ABG pO2 ABG HCO3 ABG O2 Saturation ABG Base Excess ABG Hemoglobin ABG Oxyhemoglobin VBG pH ABG Sodium ABG Potassium ABG Glucose Oxyhemoglobin Sodium Potassium Chloride Carbon Dioxide BUN Creatinine Glucose POC Glucose 169 H 185 H Lactic Acid Calcium Ferritin AST Alkaline Phosphatase Magnesium Lactate Dehydrogenase Total Creatine Kinase CK-MB (CK-2) C-Reactive Protein Total Protein Albumin Troponin T HDL Cholesterol Arterial Blood Glucose Urine WBC (Auto) Urine Creatinine Urine Total Protein Phenytoin Coronavirus (PCR) Positive A Crossmatch 07/14/20 07/15/20 07/15/20 17:23 00:04 06:06 WBC RBC Hgb Hct MCHC RDW Lymph % (Auto) [place] % (Auto) Eos % (Auto) Lymph # [place] # Lymph # (Auto) [place] # (Auto) Eos # (Auto) Seg Neutrophils % Seg Neuts % (Manual) Lymphocytes % (Manual) Seg Neutrophils # Seg Neutrophils # Man Lymphocytes # (Manual) Monocytes % (Manual) Eosinophils % (Manual) Monocytes # (Manual) Eosinophils # (Manual) D-Dimer Heparin Anti-Xa Level ABG pH POC ABG pCO2 POC ABG pO2 ABG pO2 ABG HCO3 ABG O2 Saturation ABG Base Excess ABG Hemoglobin ABG Oxyhemoglobin VBG pH ABG Sodium ABG Potassium ABG Glucose Oxyhemoglobin Sodium Potassium Chloride Carbon Dioxide BUN Creatinine Glucose POC Glucose 138 H 121 H 140 H Lactic Acid Calcium Ferritin AST Alkaline Phosphatase Magnesium Lactate Dehydrogenase Total Creatine Kinase CK-MB (CK-2) C-Reactive Protein Total Protein Albumin Troponin T HDL Cholesterol Arterial Blood Glucose Urine WBC (Auto) Urine Creatinine Urine Total Protein Phenytoin Coronavirus (PCR) Crossmatch 07/15/20 07/15/20 07/15/20 12:00 17:53 23:53 WBC RBC Hgb Hct MCHC RDW Lymph % (Auto) [place] % (Auto) Eos % (Auto) Lymph # [place] # Lymph # (Auto) [place] # (Auto) Eos # (Auto) Seg Neutrophils % Seg Neuts % (Manual) Lymphocytes % (Manual) Seg Neutrophils # Seg Neutrophils # Man Lymphocytes # (Manual) Monocytes % (Manual) Eosinophils % (Manual) Monocytes # (Manual) Eosinophils # (Manual) D-Dimer Heparin Anti-Xa Level ABG pH POC ABG pCO2 POC ABG pO2 ABG pO2 ABG HCO3 ABG O2 Saturation ABG Base Excess ABG Hemoglobin ABG Oxyhemoglobin VBG pH ABG Sodium ABG Potassium ABG Glucose Oxyhemoglobin Sodium Potassium Chloride Carbon Dioxide BUN Creatinine Glucose POC Glucose 137 H 161 H 156 H Lactic Acid Calcium Ferritin AST Alkaline Phosphatase Magnesium Lactate Dehydrogenase Total Creatine Kinase CK-MB (CK-2) C-Reactive Protein Total Protein Albumin Troponin T HDL Cholesterol Arterial Blood Glucose Urine WBC (Auto) Urine Creatinine Urine Total Protein Phenytoin Coronavirus (PCR) Crossmatch 07/16/20 07/16/20 07/17/20 05:26 17:44 00:07 WBC RBC Hgb Hct MCHC RDW Lymph % (Auto) [place] % (Auto) Eos % (Auto) Lymph # [place] # Lymph # (Auto) [place] # (Auto) Eos # (Auto) Seg Neutrophils % Seg Neuts % (Manual) Lymphocytes % (Manual) Seg Neutrophils # Seg Neutrophils # Man Lymphocytes # (Manual) Monocytes % (Manual) Eosinophils % (Manual) Monocytes # (Manual) Eosinophils # (Manual) D-Dimer Heparin Anti-Xa Level ABG pH POC ABG pCO2 POC ABG pO2 ABG pO2 ABG HCO3 ABG O2 Saturation ABG Base Excess ABG Hemoglobin ABG Oxyhemoglobin VBG pH ABG Sodium ABG Potassium ABG Glucose Oxyhemoglobin Sodium Potassium Chloride Carbon Dioxide BUN Creatinine Glucose POC Glucose 152 H 126 H 189 H Lactic Acid Calcium Ferritin AST Alkaline Phosphatase Magnesium Lactate Dehydrogenase Total Creatine Kinase CK-MB (CK-2) C-Reactive Protein Total Protein Albumin Troponin T HDL Cholesterol Arterial Blood Glucose Urine WBC (Auto) Urine Creatinine Urine Total Protein Phenytoin Coronavirus (PCR) Crossmatch 07/17/20 07/17/20 07/17/20 12:06 18:20 23:25 WBC RBC Hgb Hct MCHC RDW Lymph % (Auto) [place] % (Auto) Eos % (Auto) Lymph # [place] # Lymph # (Auto) [place] # (Auto) Eos # (Auto) Seg Neutrophils % Seg Neuts % (Manual) Lymphocytes % (Manual) Seg Neutrophils # Seg Neutrophils # Man Lymphocytes # (Manual) Monocytes % (Manual) Eosinophils % (Manual) Monocytes # (Manual) Eosinophils # (Manual) D-Dimer Heparin Anti-Xa Level ABG pH POC ABG pCO2 POC ABG pO2 ABG pO2 ABG HCO3 ABG O2 Saturation ABG Base Excess ABG Hemoglobin ABG Oxyhemoglobin VBG pH ABG Sodium ABG Potassium ABG Glucose Oxyhemoglobin Sodium Potassium Chloride Carbon Dioxide BUN Creatinine Glucose POC Glucose 155 H 206 H 161 H Lactic Acid Calcium Ferritin AST Alkaline Phosphatase Magnesium Lactate Dehydrogenase Total Creatine Kinase CK-MB (CK-2) C-Reactive Protein Total Protein Albumin Troponin T HDL Cholesterol Arterial Blood Glucose Urine WBC (Auto) Urine Creatinine Urine Total Protein Phenytoin Coronavirus (PCR) Crossmatch 07/18/20 07/18/20 07/18/20 04:24 05:16 11:53 WBC RBC Hgb Hct MCHC RDW Lymph % (Auto) [place] % (Auto) Eos % (Auto) Lymph # [place] # Lymph # (Auto) [place] # (Auto) Eos # (Auto) Seg Neutrophils % Seg Neuts % (Manual) Lymphocytes % (Manual) Seg Neutrophils # Seg Neutrophils # Man Lymphocytes # (Manual) Monocytes % (Manual) Eosinophils % (Manual) Monocytes # (Manual) Eosinophils # (Manual) D-Dimer Heparin Anti-Xa Level ABG pH POC ABG pCO2 POC ABG pO2 ABG pO2 ABG HCO3 ABG O2 Saturation ABG Base Excess ABG Hemoglobin 8.8 L ABG Oxyhemoglobin VBG pH ABG Sodium 131.6 L ABG Potassium 4.9 H ABG Glucose 131 H Oxyhemoglobin Sodium Potassium Chloride Carbon Dioxide BUN Creatinine Glucose POC Glucose 140 H 176 H Lactic Acid Calcium Ferritin AST Alkaline Phosphatase Magnesium Lactate Dehydrogenase Total Creatine Kinase CK-MB (CK-2) C-Reactive Protein Total Protein Albumin Troponin T HDL Cholesterol Arterial Blood Glucose 131 H Urine WBC (Auto) Urine Creatinine Urine Total Protein Phenytoin Coronavirus (PCR) Crossmatch 07/18/20 07/18/20 07/19/20 18:11 23:51 01:05 WBC RBC 2.76 L Hgb 7.9 L Hct 24.5 L MCHC RDW 17.6 H Lymph % (Auto) 11.6 L [place] % (Auto) 13.1 H Eos % (Auto) Lymph # [place] # Lymph # (Auto) 1.0 L [place] # (Auto) 1.1 H Eos # (Auto) Seg Neutrophils % 70.9 H Seg Neuts % (Manual) Lymphocytes % (Manual) Seg Neutrophils # Seg Neutrophils # Man Lymphocytes # (Manual) Monocytes % (Manual) Eosinophils % (Manual) Monocytes # (Manual) Eosinophils # (Manual) D-Dimer Heparin Anti-Xa Level ABG pH POC ABG pCO2 POC ABG pO2 ABG pO2 ABG HCO3 ABG O2 Saturation ABG Base Excess ABG Hemoglobin ABG Oxyhemoglobin VBG pH ABG Sodium ABG Potassium ABG Glucose Oxyhemoglobin Sodium Potassium Chloride Carbon Dioxide BUN Creatinine Glucose POC Glucose 143 H 159 H Lactic Acid Calcium Ferritin AST Alkaline Phosphatase Magnesium Lactate Dehydrogenase Total Creatine Kinase CK-MB (CK-2) C-Reactive Protein Total Protein Albumin Troponin T HDL Cholesterol Arterial Blood Glucose Urine WBC (Auto) Urine Creatinine Urine Total Protein Phenytoin Coronavirus (PCR) Crossmatch 07/19/20 07/19/20 07/19/20 01:05 05:54 12:46 WBC RBC Hgb Hct MCHC RDW Lymph % (Auto) [place] % (Auto) Eos % (Auto) Lymph # [place] # Lymph # (Auto) [place] # (Auto) Eos # (Auto) Seg Neutrophils % Seg Neuts % (Manual) Lymphocytes % (Manual) Seg Neutrophils # Seg Neutrophils # Man Lymphocytes # (Manual) Monocytes % (Manual) Eosinophils % (Manual) Monocytes # (Manual) Eosinophils # (Manual) D-Dimer Heparin Anti-Xa Level ABG pH POC ABG pCO2 POC ABG pO2 ABG pO2 ABG HCO3 ABG O2 Saturation ABG Base Excess ABG Hemoglobin ABG Oxyhemoglobin VBG pH ABG Sodium ABG Potassium ABG Glucose Oxyhemoglobin Sodium Potassium Chloride Carbon Dioxide BUN 86 H Creatinine 1.7 H Glucose 149 H POC Glucose 176 H 127 H Lactic Acid Calcium Ferritin AST Alkaline Phosphatase Magnesium Lactate Dehydrogenase Total Creatine Kinase CK-MB (CK-2) C-Reactive Protein Total Protein Albumin Troponin T HDL Cholesterol Arterial Blood Glucose Urine WBC (Auto) Urine Creatinine Urine Total Protein Phenytoin Coronavirus (PCR) Crossmatch 07/19/20 07/20/20 07/20/20 17:48 00:34 05:28 WBC RBC Hgb Hct MCHC RDW Lymph % (Auto) [place] % (Auto) Eos % (Auto) Lymph # [place] # Lymph # (Auto) [place] # (Auto) Eos # (Auto) Seg Neutrophils % Seg Neuts % (Manual) Lymphocytes % (Manual) Seg Neutrophils # Seg Neutrophils # Man Lymphocytes # (Manual) Monocytes % (Manual) Eosinophils % (Manual) Monocytes # (Manual) Eosinophils # (Manual) D-Dimer Heparin Anti-Xa Level ABG pH POC ABG pCO2 POC ABG pO2 ABG pO2 ABG HCO3 ABG O2 Saturation ABG Base Excess ABG Hemoglobin ABG Oxyhemoglobin VBG pH ABG Sodium ABG Potassium ABG Glucose Oxyhemoglobin Sodium Potassium Chloride Carbon Dioxide BUN Creatinine Glucose POC Glucose 123 H 147 H 110 H Lactic Acid Calcium Ferritin AST Alkaline Phosphatase Magnesium Lactate Dehydrogenase Total Creatine Kinase CK-MB (CK-2) C-Reactive Protein Total Protein Albumin Troponin T HDL Cholesterol Arterial Blood Glucose Urine WBC (Auto) Urine Creatinine Urine Total Protein Phenytoin Coronavirus (PCR) Crossmatch 07/20/20 07/20/20 07/21/20 12:10 17:00 00:11 WBC RBC Hgb Hct MCHC RDW Lymph % (Auto) [place] % (Auto) Eos % (Auto) Lymph # [place] # Lymph # (Auto) [place] # (Auto) Eos # (Auto) Seg Neutrophils % Seg Neuts % (Manual) Lymphocytes % (Manual) Seg Neutrophils # Seg Neutrophils # Man Lymphocytes # (Manual) Monocytes % (Manual) Eosinophils % (Manual) Monocytes # (Manual) Eosinophils # (Manual) D-Dimer Heparin Anti-Xa Level ABG pH POC ABG pCO2 POC ABG pO2 ABG pO2 ABG HCO3 ABG O2 Saturation ABG Base Excess ABG Hemoglobin ABG Oxyhemoglobin VBG pH ABG Sodium ABG Potassium ABG Glucose Oxyhemoglobin Sodium Potassium Chloride Carbon Dioxide BUN Creatinine Glucose POC Glucose 149 H 173 H 128 H Lactic Acid Calcium Ferritin AST Alkaline Phosphatase Magnesium Lactate Dehydrogenase Total Creatine Kinase CK-MB (CK-2) C-Reactive Protein Total Protein Albumin Troponin T HDL Cholesterol Arterial Blood Glucose Urine WBC (Auto) Urine Creatinine Urine Total Protein Phenytoin Coronavirus (PCR) Crossmatch 07/21/20 07/21/20 07/21/20 05:30 12:21 18:17 WBC RBC Hgb Hct MCHC RDW Lymph % (Auto) [place] % (Auto) Eos % (Auto) Lymph # [place] # Lymph # (Auto) [place] # (Auto) Eos # (Auto) Seg Neutrophils % Seg Neuts % (Manual) Lymphocytes % (Manual) Seg Neutrophils # Seg Neutrophils # Man Lymphocytes # (Manual) Monocytes % (Manual) Eosinophils % (Manual) Monocytes # (Manual) Eosinophils # (Manual) D-Dimer Heparin Anti-Xa Level ABG pH POC ABG pCO2 POC ABG pO2 ABG pO2 ABG HCO3 ABG O2 Saturation ABG Base Excess ABG Hemoglobin ABG Oxyhemoglobin VBG pH ABG Sodium ABG Potassium ABG Glucose Oxyhemoglobin Sodium Potassium Chloride Carbon Dioxide BUN Creatinine Glucose POC Glucose 153 H 144 H 160 H Lactic Acid Calcium Ferritin AST Alkaline Phosphatase Magnesium Lactate Dehydrogenase Total Creatine Kinase CK-MB (CK-2) C-Reactive Protein Total Protein Albumin Troponin T HDL Cholesterol Arterial Blood Glucose Urine WBC (Auto) Urine Creatinine Urine Total Protein Phenytoin Coronavirus (PCR) Crossmatch 07/22/20 07/22/20 07/22/20 00:45 05:52 12:03 WBC RBC Hgb Hct MCHC RDW Lymph % (Auto) [place] % (Auto) Eos % (Auto) Lymph # [place] # Lymph # (Auto) [place] # (Auto) Eos # (Auto) Seg Neutrophils % Seg Neuts % (Manual) Lymphocytes % (Manual) Seg Neutrophils # Seg Neutrophils # Man Lymphocytes # (Manual) Monocytes % (Manual) Eosinophils % (Manual) Monocytes # (Manual) Eosinophils # (Manual) D-Dimer Heparin Anti-Xa Level ABG pH POC ABG pCO2 POC ABG pO2 ABG pO2 ABG HCO3 ABG O2 Saturation ABG Base Excess ABG Hemoglobin ABG Oxyhemoglobin VBG pH ABG Sodium ABG Potassium ABG Glucose Oxyhemoglobin Sodium Potassium Chloride Carbon Dioxide BUN Creatinine Glucose POC Glucose 128 H 126 H 157 H Lactic Acid Calcium Ferritin AST Alkaline Phosphatase Magnesium Lactate Dehydrogenase Total Creatine Kinase CK-MB (CK-2) C-Reactive Protein Total Protein Albumin Troponin T HDL Cholesterol Arterial Blood Glucose Urine WBC (Auto) Urine Creatinine Urine Total Protein Phenytoin Coronavirus (PCR) Crossmatch 07/22/20 07/22/20 07/23/20 18:23 23:20 06:06 WBC RBC Hgb Hct MCHC RDW Lymph % (Auto) [place] % (Auto) Eos % (Auto) Lymph # [place] # Lymph # (Auto) [place] # (Auto) Eos # (Auto) Seg Neutrophils % Seg Neuts % (Manual) Lymphocytes % (Manual) Seg Neutrophils # Seg Neutrophils # Man Lymphocytes # (Manual) Monocytes % (Manual) Eosinophils % (Manual) Monocytes # (Manual) Eosinophils # (Manual) D-Dimer Heparin Anti-Xa Level ABG pH POC ABG pCO2 POC ABG pO2 ABG pO2 ABG HCO3 ABG O2 Saturation ABG Base Excess ABG Hemoglobin ABG Oxyhemoglobin VBG pH ABG Sodium ABG Potassium ABG Glucose Oxyhemoglobin Sodium Potassium Chloride Carbon Dioxide BUN Creatinine Glucose POC Glucose 152 H 122 H 143 H Lactic Acid Calcium Ferritin AST Alkaline Phosphatase Magnesium Lactate Dehydrogenase Total Creatine Kinase CK-MB (CK-2) C-Reactive Protein Total Protein Albumin Troponin T HDL Cholesterol Arterial Blood Glucose Urine WBC (Auto) Urine Creatinine Urine Total Protein Phenytoin Coronavirus (PCR) Crossmatch 07/23/20 07/23/20 07/23/20 12:11 17:38 19:23 WBC RBC Hgb Hct MCHC RDW Lymph % (Auto) [place] % (Auto) Eos % (Auto) Lymph # [place] # Lymph # (Auto) [place] # (Auto) Eos # (Auto) Seg Neutrophils % Seg Neuts % (Manual) Lymphocytes % (Manual) Seg Neutrophils # Seg Neutrophils # Man Lymphocytes # (Manual) Monocytes % (Manual) Eosinophils % (Manual) Monocytes # (Manual) Eosinophils # (Manual) D-Dimer Heparin Anti-Xa Level ABG pH POC ABG pCO2 POC ABG pO2 ABG pO2 ABG HCO3 ABG O2 Saturation ABG Base Excess ABG Hemoglobin ABG Oxyhemoglobin VBG pH ABG Sodium ABG Potassium ABG Glucose Oxyhemoglobin Sodium 129 L D Potassium 5.8 H Chloride 95.6 L Carbon Dioxide BUN 98 H Creatinine 2.1 H Glucose 167 H POC Glucose 210 H 181 H Lactic Acid Calcium Ferritin AST Alkaline Phosphatase Magnesium Lactate Dehydrogenase Total Creatine Kinase CK-MB (CK-2) C-Reactive Protein Total Protein Albumin 2.2 L Troponin T HDL Cholesterol Arterial Blood Glucose Urine WBC (Auto) Urine Creatinine Urine Total Protein Phenytoin Coronavirus (PCR) Crossmatch 07/24/20 07/24/20 07/24/20 00:00 04:29 04:29 WBC RBC 2.53 L Hgb 7.5 L Hct 22.8 L MCHC RDW 16.8 H Lymph % (Auto) 9.4 L [place] % (Auto) 10.4 H Eos % (Auto) 5.9 H Lymph # [place] # Lymph # (Auto) 0.8 L [place] # (Auto) 0.9 H Eos # (Auto) 0.5 H Seg Neutrophils % 73.5 H Seg Neuts % (Manual) Lymphocytes % (Manual) Seg Neutrophils # Seg Neutrophils # Man Lymphocytes # (Manual) Monocytes % (Manual) Eosinophils % (Manual) Monocytes # (Manual) Eosinophils # (Manual) D-Dimer Heparin Anti-Xa Level ABG pH POC ABG pCO2 POC ABG pO2 ABG pO2 ABG HCO3 ABG O2 Saturation ABG Base Excess ABG Hemoglobin ABG Oxyhemoglobin VBG pH ABG Sodium ABG Potassium ABG Glucose Oxyhemoglobin Sodium Potassium Chloride Carbon Dioxide BUN Creatinine Glucose POC Glucose 201 H Lactic Acid Calcium Ferritin AST Alkaline Phosphatase Magnesium Lactate Dehydrogenase Total Creatine Kinase CK-MB (CK-2) C-Reactive Protein Total Protein Albumin Troponin T HDL Cholesterol Arterial Blood Glucose Urine WBC (Auto) Urine Creatinine Urine Total Protein Phenytoin 9.4 L Coronavirus (PCR) Crossmatch 07/24/20 07/24/20 07/24/20 04:29 05:11 12:14 WBC RBC Hgb Hct MCHC RDW Lymph % (Auto) [place] % (Auto) Eos % (Auto) Lymph # [place] # Lymph # (Auto) [place] # (Auto) Eos # (Auto) Seg Neutrophils % Seg Neuts % (Manual) Lymphocytes % (Manual) Seg Neutrophils # Seg Neutrophils # Man Lymphocytes # (Manual) Monocytes % (Manual) Eosinophils % (Manual) Monocytes # (Manual) Eosinophils # (Manual) D-Dimer Heparin Anti-Xa Level ABG pH POC ABG pCO2 POC ABG pO2 ABG pO2 ABG HCO3 ABG O2 Saturation ABG Base Excess ABG Hemoglobin ABG Oxyhemoglobin VBG pH ABG Sodium ABG Potassium ABG Glucose Oxyhemoglobin Sodium 134 L Potassium 5.5 H Chloride Carbon Dioxide BUN 97 H Creatinine 2.2 H Glucose 149 H POC Glucose 142 H 146 H Lactic Acid Calcium Ferritin AST Alkaline Phosphatase Magnesium 2.60 H Lactate Dehydrogenase Total Creatine Kinase CK-MB (CK-2) C-Reactive Protein Total Protein Albumin Troponin T HDL Cholesterol Arterial Blood Glucose Urine WBC (Auto) Urine Creatinine Urine Total Protein Phenytoin Coronavirus (PCR) Crossmatch 07/24/20 07/24/20 07/25/20 18:12 21:00 00:08 WBC RBC Hgb Hct MCHC RDW Lymph % (Auto) [place] % (Auto) Eos % (Auto) Lymph # [place] # Lymph # (Auto) [place] # (Auto) Eos # (Auto) Seg Neutrophils % Seg Neuts % (Manual) Lymphocytes % (Manual) Seg Neutrophils # Seg Neutrophils # Man Lymphocytes # (Manual) Monocytes % (Manual) Eosinophils % (Manual) Monocytes # (Manual) Eosinophils # (Manual) D-Dimer Heparin Anti-Xa Level ABG pH POC ABG pCO2 POC ABG pO2 ABG pO2 ABG HCO3 ABG O2 Saturation ABG Base Excess ABG Hemoglobin ABG Oxyhemoglobin VBG pH ABG Sodium ABG Potassium ABG Glucose Oxyhemoglobin Sodium Potassium Chloride Carbon Dioxide BUN Creatinine Glucose POC Glucose 182 H 170 H 129 H Lactic Acid Calcium Ferritin AST Alkaline Phosphatase Magnesium Lactate Dehydrogenase Total Creatine Kinase CK-MB (CK-2) C-Reactive Protein Total Protein Albumin Troponin T HDL Cholesterol Arterial Blood Glucose Urine WBC (Auto) Urine Creatinine Urine Total Protein Phenytoin Coronavirus (PCR) Crossmatch 07/25/20 07/25/20 07/25/20 04:24 04:24 12:19 WBC RBC 2.51 L Hgb 7.5 L Hct 22.3 L MCHC RDW 17.4 H Lymph % (Auto) [place] % (Auto) Eos % (Auto) Lymph # [place] # Lymph # (Auto) [place] # (Auto) Eos # (Auto) Seg Neutrophils % Seg Neuts % (Manual) Lymphocytes % (Manual) Seg Neutrophils # Seg Neutrophils # Man Lymphocytes # (Manual) Monocytes % (Manual) Eosinophils % (Manual) Monocytes # (Manual) Eosinophils # (Manual) D-Dimer Heparin Anti-Xa Level ABG pH POC ABG pCO2 POC ABG pO2 ABG pO2 ABG HCO3 ABG O2 Saturation ABG Base Excess ABG Hemoglobin ABG Oxyhemoglobin VBG pH ABG Sodium ABG Potassium ABG Glucose Oxyhemoglobin Sodium 132 L Potassium Chloride 95.1 L Carbon Dioxide 21 L BUN 95 H Creatinine 2.5 H Glucose 108 H POC Glucose 122 H Lactic Acid Calcium Ferritin AST Alkaline Phosphatase Magnesium Lactate Dehydrogenase Total Creatine Kinase CK-MB (CK-2) C-Reactive Protein Total Protein Albumin Troponin T HDL Cholesterol Arterial Blood Glucose Urine WBC (Auto) Urine Creatinine Urine Total Protein Phenytoin Coronavirus (PCR) Crossmatch 07/25/20 07/25/20 07/26/20 18:11 23:24 04:22 WBC RBC Hgb Hct MCHC RDW Lymph % (Auto) [place] % (Auto) Eos % (Auto) Lymph # [place] # Lymph # (Auto) [place] # (Auto) Eos # (Auto) Seg Neutrophils % Seg Neuts % (Manual) Lymphocytes % (Manual) Seg Neutrophils # Seg Neutrophils # Man Lymphocytes # (Manual) Monocytes % (Manual) Eosinophils % (Manual) Monocytes # (Manual) Eosinophils # (Manual) D-Dimer Heparin Anti-Xa Level ABG pH POC ABG pCO2 POC ABG pO2 ABG pO2 ABG HCO3 ABG O2 Saturation ABG Base Excess ABG Hemoglobin ABG Oxyhemoglobin VBG pH ABG Sodium ABG Potassium ABG Glucose Oxyhemoglobin Sodium 132 L Potassium Chloride 96.2 L Carbon Dioxide 21 L BUN 99 H Creatinine 2.5 H Glucose 132 H POC Glucose 137 H 117 H Lactic Acid Calcium 8.2 L Ferritin AST Alkaline Phosphatase Magnesium Lactate Dehydrogenase Total Creatine Kinase CK-MB (CK-2) C-Reactive Protein Total Protein Albumin Troponin T HDL Cholesterol Arterial Blood Glucose Urine WBC (Auto) Urine Creatinine Urine Total Protein Phenytoin Coronavirus (PCR) Crossmatch 07/26/20 07/26/20 07/26/20 05:58 12:21 17:31 WBC RBC Hgb Hct MCHC RDW Lymph % (Auto) [place] % (Auto) Eos % (Auto) Lymph # [place] # Lymph # (Auto) [place] # (Auto) Eos # (Auto) Seg Neutrophils % Seg Neuts % (Manual) Lymphocytes % (Manual) Seg Neutrophils # Seg Neutrophils # Man Lymphocytes # (Manual) Monocytes % (Manual) Eosinophils % (Manual) Monocytes # (Manual) Eosinophils # (Manual) D-Dimer Heparin Anti-Xa Level ABG pH POC ABG pCO2 POC ABG pO2 ABG pO2 ABG HCO3 ABG O2 Saturation ABG Base Excess ABG Hemoglobin ABG Oxyhemoglobin VBG pH ABG Sodium ABG Potassium ABG Glucose Oxyhemoglobin Sodium Potassium Chloride Carbon Dioxide BUN Creatinine Glucose POC Glucose 110 H 142 H 180 H Lactic Acid Calcium Ferritin AST Alkaline Phosphatase Magnesium Lactate Dehydrogenase Total Creatine Kinase CK-MB (CK-2) C-Reactive Protein Total Protein Albumin Troponin T HDL Cholesterol Arterial Blood Glucose Urine WBC (Auto) Urine Creatinine Urine Total Protein Phenytoin Coronavirus (PCR) Crossmatch 07/26/20 07/27/20 07/27/20 23:36 03:36 05:36 WBC RBC 2.49 L Hgb 7.3 L Hct 22.2 L MCHC RDW 17.2 H Lymph % (Auto) 11.0 L [place] % (Auto) 11.7 H Eos % (Auto) Lymph # [place] # Lymph # (Auto) 0.8 L [place] # (Auto) 0.9 H Eos # (Auto) Seg Neutrophils % 72.3 H Seg Neuts % (Manual) Lymphocytes % (Manual) Seg Neutrophils # Seg Neutrophils # Man Lymphocytes # (Manual) Monocytes % (Manual) Eosinophils % (Manual) Monocytes # (Manual) Eosinophils # (Manual) D-Dimer Heparin Anti-Xa Level ABG pH POC ABG pCO2 POC ABG pO2 ABG pO2 ABG HCO3 ABG O2 Saturation ABG Base Excess ABG Hemoglobin ABG Oxyhemoglobin VBG pH ABG Sodium ABG Potassium ABG Glucose Oxyhemoglobin Sodium Potassium Chloride Carbon Dioxide BUN Creatinine Glucose POC Glucose 162 H 118 H Lactic Acid Calcium Ferritin AST Alkaline Phosphatase Magnesium Lactate Dehydrogenase Total Creatine Kinase CK-MB (CK-2) C-Reactive Protein Total Protein Albumin Troponin T HDL Cholesterol Arterial Blood Glucose Urine WBC (Auto) Urine Creatinine Urine Total Protein Phenytoin Coronavirus (PCR) Crossmatch 07/27/20 07/27/20 07/27/20 05:36 12:19 17:36 WBC RBC Hgb Hct MCHC RDW Lymph % (Auto) [place] % (Auto) Eos % (Auto) Lymph # [place] # Lymph # (Auto) [place] # (Auto) Eos # (Auto) Seg Neutrophils % Seg Neuts % (Manual) Lymphocytes % (Manual) Seg Neutrophils # Seg Neutrophils # Man Lymphocytes # (Manual) Monocytes % (Manual) Eosinophils % (Manual) Monocytes # (Manual) Eosinophils # (Manual) D-Dimer Heparin Anti-Xa Level ABG pH POC ABG pCO2 POC ABG pO2 ABG pO2 ABG HCO3 ABG O2 Saturation ABG Base Excess ABG Hemoglobin ABG Oxyhemoglobin VBG pH ABG Sodium ABG Potassium ABG Glucose Oxyhemoglobin Sodium 135 L Potassium 5.3 H Chloride Carbon Dioxide 21 L BUN 103 H Creatinine 2.6 H Glucose 113 H POC Glucose 131 H 151 H Lactic Acid Calcium 8.1 L Ferritin AST Alkaline Phosphatase Magnesium Lactate Dehydrogenase Total Creatine Kinase CK-MB (CK-2) C-Reactive Protein Total Protein Albumin Troponin T HDL Cholesterol Arterial Blood Glucose Urine WBC (Auto) Urine Creatinine Urine Total Protein Phenytoin Coronavirus (PCR) Crossmatch 07/27/20 07/28/20 07/28/20 23:29 04:30 04:30 WBC RBC 2.50 L Hgb 7.3 L Hct 22.2 L MCHC RDW 17.3 H Lymph % (Auto) 8.7 L [place] % (Auto) 8.3 H Eos % (Auto) Lymph # [place] # Lymph # (Auto) 0.7 L [place] # (Auto) Eos # (Auto) Seg Neutrophils % 79.1 H Seg Neuts % (Manual) Lymphocytes % (Manual) Seg Neutrophils # Seg Neutrophils # Man Lymphocytes # (Manual) Monocytes % (Manual) Eosinophils % (Manual) Monocytes # (Manual) Eosinophils # (Manual) D-Dimer Heparin Anti-Xa Level ABG pH POC ABG pCO2 POC ABG pO2 ABG pO2 ABG HCO3 ABG O2 Saturation ABG Base Excess ABG Hemoglobin ABG Oxyhemoglobin VBG pH ABG Sodium ABG Potassium ABG Glucose Oxyhemoglobin Sodium 135 L Potassium 5.2 H Chloride 96.8 L Carbon Dioxide 20 L BUN 107 H Creatinine 2.9 H Glucose POC Glucose 124 H Lactic Acid Calcium 8.2 L Ferritin AST Alkaline Phosphatase Magnesium 2.70 H Lactate Dehydrogenase Total Creatine Kinase CK-MB (CK-2) C-Reactive Protein Total Protein Albumin Troponin T HDL Cholesterol Arterial Blood Glucose Urine WBC (Auto) Urine Creatinine Urine Total Protein Phenytoin Coronavirus (PCR) Crossmatch 07/28/20 07/29/20 07/29/20 17:35 00:11 06:45 WBC RBC Hgb Hct MCHC RDW Lymph % (Auto) [place] % (Auto) Eos % (Auto) Lymph # [place] # Lymph # (Auto) [place] # (Auto) Eos # (Auto) Seg Neutrophils % Seg Neuts % (Manual) Lymphocytes % (Manual) Seg Neutrophils # Seg Neutrophils # Man Lymphocytes # (Manual) Monocytes % (Manual) Eosinophils % (Manual) Monocytes # (Manual) Eosinophils # (Manual) D-Dimer Heparin Anti-Xa Level ABG pH POC ABG pCO2 POC ABG pO2 ABG pO2 ABG HCO3 ABG O2 Saturation ABG Base Excess ABG Hemoglobin ABG Oxyhemoglobin VBG pH ABG Sodium ABG Potassium ABG Glucose Oxyhemoglobin Sodium Potassium Chloride Carbon Dioxide BUN Creatinine Glucose POC Glucose 146 H 143 H 179 H Lactic Acid Calcium Ferritin AST Alkaline Phosphatase Magnesium Lactate Dehydrogenase Total Creatine Kinase CK-MB (CK-2) C-Reactive Protein Total Protein Albumin Troponin T HDL Cholesterol Arterial Blood Glucose Urine WBC (Auto) Urine Creatinine Urine Total Protein Phenytoin Coronavirus (PCR) Crossmatch 07/29/20 07/29/20 07/29/20 11:54 13:01 13:01 WBC RBC 2.40 L Hgb 7.1 L Hct 20.9 L MCHC RDW 17.5 H Lymph % (Auto) [place] % (Auto) Eos % (Auto) Lymph # [place] # Lymph # (Auto) [place] # (Auto) Eos # (Auto) Seg Neutrophils % Seg Neuts % (Manual) 86.0 H Lymphocytes % (Manual) 6.0 L Seg Neutrophils # Seg Neutrophils # Man 8.9 H Lymphocytes # (Manual) 0.6 L Monocytes % (Manual) 8.0 H Eosinophils % (Manual) Monocytes # (Manual) Eosinophils # (Manual) D-Dimer Heparin Anti-Xa Level ABG pH POC ABG pCO2 POC ABG pO2 ABG pO2 ABG HCO3 ABG O2 Saturation ABG Base Excess ABG Hemoglobin ABG Oxyhemoglobin VBG pH ABG Sodium ABG Potassium ABG Glucose Oxyhemoglobin Sodium 129 L Potassium Chloride 92.9 L Carbon Dioxide BUN 112 H Creatinine 3.0 H Glucose 142 H POC Glucose 170 H Lactic Acid Calcium 7.9 L Ferritin AST Alkaline Phosphatase Magnesium Lactate Dehydrogenase Total Creatine Kinase CK-MB (CK-2) C-Reactive Protein Total Protein Albumin Troponin T HDL Cholesterol Arterial Blood Glucose Urine WBC (Auto) Urine Creatinine Urine Total Protein Phenytoin Coronavirus (PCR) Crossmatch 07/29/20 07/30/20 07/30/20 22:45 05:01 11:45 WBC RBC Hgb Hct MCHC RDW Lymph % (Auto) [place] % (Auto) Eos % (Auto) Lymph # [place] # Lymph # (Auto) [place] # (Auto) Eos # (Auto) Seg Neutrophils % Seg Neuts % (Manual) Lymphocytes % (Manual) Seg Neutrophils # Seg Neutrophils # Man Lymphocytes # (Manual) Monocytes % (Manual) Eosinophils % (Manual) Monocytes # (Manual) Eosinophils # (Manual) D-Dimer Heparin Anti-Xa Level ABG pH POC ABG pCO2 POC ABG pO2 ABG pO2 ABG HCO3 ABG O2 Saturation ABG Base Excess ABG Hemoglobin ABG Oxyhemoglobin VBG pH ABG Sodium ABG Potassium ABG Glucose Oxyhemoglobin Sodium Potassium Chloride Carbon Dioxide BUN Creatinine Glucose POC Glucose 129 H 150 H 130 H Lactic Acid Calcium Ferritin AST Alkaline Phosphatase Magnesium Lactate Dehydrogenase Total Creatine Kinase CK-MB (CK-2) C-Reactive Protein Total Protein Albumin Troponin T HDL Cholesterol Arterial Blood Glucose Urine WBC (Auto) Urine Creatinine Urine Total Protein Phenytoin Coronavirus (PCR) Crossmatch 07/30/20 07/30/20 07/30/20 17:54 21:26 23:58 WBC RBC Hgb Hct MCHC RDW Lymph % (Auto) [place] % (Auto) Eos % (Auto) Lymph # [place] # Lymph # (Auto) [place] # (Auto) Eos # (Auto) Seg Neutrophils % Seg Neuts % (Manual) Lymphocytes % (Manual) Seg Neutrophils # Seg Neutrophils # Man Lymphocytes # (Manual) Monocytes % (Manual) Eosinophils % (Manual) Monocytes # (Manual) Eosinophils # (Manual) D-Dimer Heparin Anti-Xa Level ABG pH POC ABG pCO2 POC ABG pO2 ABG pO2 ABG HCO3 ABG O2 Saturation ABG Base Excess ABG Hemoglobin ABG Oxyhemoglobin VBG pH ABG Sodium ABG Potassium ABG Glucose Oxyhemoglobin Sodium Potassium Chloride Carbon Dioxide BUN Creatinine Glucose POC Glucose 143 H 124 H 142 H Lactic Acid Calcium Ferritin AST Alkaline Phosphatase Magnesium Lactate Dehydrogenase Total Creatine Kinase CK-MB (CK-2) C-Reactive Protein Total Protein Albumin Troponin T HDL Cholesterol Arterial Blood Glucose Urine WBC (Auto) Urine Creatinine Urine Total Protein Phenytoin Coronavirus (PCR) Crossmatch 07/31/20 07/31/20 07/31/20 05:43 11:35 18:07 WBC RBC Hgb Hct MCHC RDW Lymph % (Auto) [place] % (Auto) Eos % (Auto) Lymph # [place] # Lymph # (Auto) [place] # (Auto) Eos # (Auto) Seg Neutrophils % Seg Neuts % (Manual) Lymphocytes % (Manual) Seg Neutrophils # Seg Neutrophils # Man Lymphocytes # (Manual) Monocytes % (Manual) Eosinophils % (Manual) Monocytes # (Manual) Eosinophils # (Manual) D-Dimer Heparin Anti-Xa Level ABG pH POC ABG pCO2 POC ABG pO2 ABG pO2 ABG HCO3 ABG O2 Saturation ABG Base Excess ABG Hemoglobin ABG Oxyhemoglobin VBG pH ABG Sodium ABG Potassium ABG Glucose Oxyhemoglobin Sodium Potassium Chloride Carbon Dioxide BUN Creatinine Glucose POC Glucose 152 H 179 H 129 H Lactic Acid Calcium Ferritin AST Alkaline Phosphatase Magnesium Lactate Dehydrogenase Total Creatine Kinase CK-MB (CK-2) C-Reactive Protein Total Protein Albumin Troponin T HDL Cholesterol Arterial Blood Glucose Urine WBC (Auto) Urine Creatinine Urine Total Protein Phenytoin Coronavirus (PCR) Crossmatch 07/31/20 07/31/20 08/01/20 21:30 22:12 00:25 WBC RBC Hgb Hct MCHC RDW Lymph % (Auto) [place] % (Auto) Eos % (Auto) Lymph # [place] # Lymph # (Auto) [place] # (Auto) Eos # (Auto) Seg Neutrophils % Seg Neuts % (Manual) Lymphocytes % (Manual) Seg Neutrophils # Seg Neutrophils # Man Lymphocytes # (Manual) Monocytes % (Manual) Eosinophils % (Manual) Monocytes # (Manual) Eosinophils # (Manual) D-Dimer Heparin Anti-Xa Level ABG pH POC ABG pCO2 POC ABG pO2 ABG pO2 ABG HCO3 ABG O2 Saturation ABG Base Excess ABG Hemoglobin ABG Oxyhemoglobin VBG pH ABG Sodium ABG Potassium ABG Glucose Oxyhemoglobin Sodium Potassium Chloride Carbon Dioxide BUN Creatinine Glucose POC Glucose 143 H 122 H 134 H Lactic Acid Calcium Ferritin AST Alkaline Phosphatase Magnesium Lactate Dehydrogenase Total Creatine Kinase CK-MB (CK-2) C-Reactive Protein Total Protein Albumin Troponin T HDL Cholesterol Arterial Blood Glucose Urine WBC (Auto) Urine Creatinine Urine Total Protein Phenytoin Coronavirus (PCR) Crossmatch 08/01/20 08/01/20 08/01/20 04:43 05:41 12:23 WBC RBC Hgb Hct MCHC RDW Lymph % (Auto) [place] % (Auto) Eos % (Auto) Lymph # [place] # Lymph # (Auto) [place] # (Auto) Eos # (Auto) Seg Neutrophils % Seg Neuts % (Manual) Lymphocytes % (Manual) Seg Neutrophils # Seg Neutrophils # Man Lymphocytes # (Manual) Monocytes % (Manual) Eosinophils % (Manual) Monocytes # (Manual) Eosinophils # (Manual) D-Dimer Heparin Anti-Xa Level ABG pH POC ABG pCO2 POC ABG pO2 ABG pO2 ABG HCO3 ABG O2 Saturation ABG Base Excess ABG Hemoglobin ABG Oxyhemoglobin VBG pH ABG Sodium ABG Potassium ABG Glucose Oxyhemoglobin Sodium 128 L Potassium 5.8 H Chloride 90.5 L Carbon Dioxide 19 L BUN 122 H Creatinine 3.4 H Glucose 124 H POC Glucose 130 H 128 H Lactic Acid Calcium 8.0 L Ferritin AST Alkaline Phosphatase Magnesium Lactate Dehydrogenase Total Creatine Kinase CK-MB (CK-2) C-Reactive Protein Total Protein Albumin Troponin T HDL Cholesterol Arterial Blood Glucose Urine WBC (Auto) Urine Creatinine Urine Total Protein Phenytoin Coronavirus (PCR) Crossmatch 08/01/20 08/02/20 08/02/20 17:28 00:06 05:32 WBC RBC Hgb Hct MCHC RDW Lymph % (Auto) [place] % (Auto) Eos % (Auto) Lymph # [place] # Lymph # (Auto) [place] # (Auto) Eos # (Auto) Seg Neutrophils % Seg Neuts % (Manual) Lymphocytes % (Manual) Seg Neutrophils # Seg Neutrophils # Man Lymphocytes # (Manual) Monocytes % (Manual) Eosinophils % (Manual) Monocytes # (Manual) Eosinophils # (Manual) D-Dimer Heparin Anti-Xa Level ABG pH POC ABG pCO2 POC ABG pO2 ABG pO2 ABG HCO3 ABG O2 Saturation ABG Base Excess ABG Hemoglobin ABG Oxyhemoglobin VBG pH ABG Sodium ABG Potassium ABG Glucose Oxyhemoglobin Sodium Potassium Chloride Carbon Dioxide BUN Creatinine Glucose POC Glucose 121 H 128 H 177 H Lactic Acid Calcium Ferritin AST Alkaline Phosphatase Magnesium Lactate Dehydrogenase Total Creatine Kinase CK-MB (CK-2) C-Reactive Protein Total Protein Albumin Troponin T HDL Cholesterol Arterial Blood Glucose Urine WBC (Auto) Urine Creatinine Urine Total Protein Phenytoin Coronavirus (PCR) Crossmatch 08/02/20 08/02/20 08/03/20 11:25 12:34 00:08 WBC RBC Hgb Hct MCHC RDW Lymph % (Auto) [place] % (Auto) Eos % (Auto) Lymph # [place] # Lymph # (Auto) [place] # (Auto) Eos # (Auto) Seg Neutrophils % Seg Neuts % (Manual) Lymphocytes % (Manual) Seg Neutrophils # Seg Neutrophils # Man Lymphocytes # (Manual) Monocytes % (Manual) Eosinophils % (Manual) Monocytes # (Manual) Eosinophils # (Manual) D-Dimer Heparin Anti-Xa Level ABG pH 7.344 L POC ABG pCO2 POC ABG pO2 ABG pO2 101.1 H ABG HCO3 ABG O2 Saturation ABG Base Excess -4.5 L ABG Hemoglobin 6.6 L ABG Oxyhemoglobin VBG pH ABG Sodium ABG Potassium ABG Glucose Oxyhemoglobin Sodium Potassium Chloride Carbon Dioxide BUN Creatinine Glucose POC Glucose 196 H 141 H Lactic Acid Calcium Ferritin AST Alkaline Phosphatase Magnesium Lactate Dehydrogenase Total Creatine Kinase CK-MB (CK-2) C-Reactive Protein Total Protein Albumin Troponin T HDL Cholesterol Arterial Blood Glucose Urine WBC (Auto) Urine Creatinine Urine Total Protein Phenytoin Coronavirus (PCR) Crossmatch 08/03/20 08/03/20 08/03/20 04:38 04:38 04:38 WBC 14.3 H RBC 2.42 L Hgb 7.0 L Hct 21.5 L MCHC RDW 18.1 H Lymph % (Auto) [place] % (Auto) Eos % (Auto) Lymph # [place] # Lymph # (Auto) [place] # (Auto) Eos # (Auto) Seg Neutrophils % Seg Neuts % (Manual) Lymphocytes % (Manual) Seg Neutrophils # Seg Neutrophils # Man Lymphocytes # (Manual) Monocytes % (Manual) Eosinophils % (Manual) Monocytes # (Manual) Eosinophils # (Manual) D-Dimer Heparin Anti-Xa Level ABG pH POC ABG pCO2 POC ABG pO2 ABG pO2 ABG HCO3 ABG O2 Saturation ABG Base Excess ABG Hemoglobin ABG Oxyhemoglobin VBG pH ABG Sodium ABG Potassium ABG Glucose Oxyhemoglobin Sodium 130 L Potassium Chloride 90.1 L Carbon Dioxide 20 L BUN 105 H Creatinine 3.1 H Glucose 115 H POC Glucose Lactic Acid 0.40 L Calcium 8.2 L Ferritin AST Alkaline Phosphatase Magnesium Lactate Dehydrogenase Total Creatine Kinase CK-MB (CK-2) C-Reactive Protein Total Protein Albumin Troponin T HDL Cholesterol Arterial Blood Glucose Urine WBC (Auto) Urine Creatinine Urine Total Protein Phenytoin Coronavirus (PCR) Crossmatch 08/03/20 08/03/20 08/03/20 05:33 12:04 17:51 WBC RBC Hgb Hct MCHC RDW Lymph % (Auto) [place] % (Auto) Eos % (Auto) Lymph # [place] # Lymph # (Auto) [place] # (Auto) Eos # (Auto) Seg Neutrophils % Seg Neuts % (Manual) Lymphocytes % (Manual) Seg Neutrophils # Seg Neutrophils # Man Lymphocytes # (Manual) Monocytes % (Manual) Eosinophils % (Manual) Monocytes # (Manual) Eosinophils # (Manual) D-Dimer Heparin Anti-Xa Level ABG pH POC ABG pCO2 POC ABG pO2 ABG pO2 ABG HCO3 ABG O2 Saturation ABG Base Excess ABG Hemoglobin ABG Oxyhemoglobin VBG pH ABG Sodium ABG Potassium ABG Glucose Oxyhemoglobin Sodium Potassium Chloride Carbon Dioxide BUN Creatinine Glucose POC Glucose 117 H 115 H 123 H Lactic Acid Calcium Ferritin AST Alkaline Phosphatase Magnesium Lactate Dehydrogenase Total Creatine Kinase CK-MB (CK-2) C-Reactive Protein Total Protein Albumin Troponin T HDL Cholesterol Arterial Blood Glucose Urine WBC (Auto) Urine Creatinine Urine Total Protein Phenytoin Coronavirus (PCR) Crossmatch 08/03/20 08/04/20 08/04/20 23:25 01:41 05:34 WBC RBC 2.20 L Hgb 6.5 L Hct 19.5 L* MCHC RDW 18.5 H Lymph % (Auto) 9.2 L [place] % (Auto) 9.8 H Eos % (Auto) Lymph # [place] # Lymph # (Auto) 0.8 L [place] # (Auto) Eos # (Auto) Seg Neutrophils % 77.7 H Seg Neuts % (Manual) Lymphocytes % (Manual) Seg Neutrophils # Seg Neutrophils # Man Lymphocytes # (Manual) Monocytes % (Manual) Eosinophils % (Manual) Monocytes # (Manual) Eosinophils # (Manual) D-Dimer Heparin Anti-Xa Level ABG pH POC ABG pCO2 POC ABG pO2 ABG pO2 ABG HCO3 ABG O2 Saturation ABG Base Excess ABG Hemoglobin ABG Oxyhemoglobin VBG pH ABG Sodium ABG Potassium ABG Glucose Oxyhemoglobin Sodium Potassium Chloride Carbon Dioxide BUN Creatinine Glucose POC Glucose 122 H 112 H Lactic Acid Calcium Ferritin AST Alkaline Phosphatase Magnesium Lactate Dehydrogenase Total Creatine Kinase CK-MB (CK-2) C-Reactive Protein Total Protein Albumin Troponin T HDL Cholesterol Arterial Blood Glucose Urine WBC (Auto) Urine Creatinine Urine Total Protein Phenytoin Coronavirus (PCR) Crossmatch 08/04/20 08/04/20 08/05/20 12:19 17:42 00:25 WBC RBC Hgb Hct MCHC RDW Lymph % (Auto) [place] % (Auto) Eos % (Auto) Lymph # [place] # Lymph # (Auto) [place] # (Auto) Eos # (Auto) Seg Neutrophils % Seg Neuts % (Manual) Lymphocytes % (Manual) Seg Neutrophils # Seg Neutrophils # Man Lymphocytes # (Manual) Monocytes % (Manual) Eosinophils % (Manual) Monocytes # (Manual) Eosinophils # (Manual) D-Dimer Heparin Anti-Xa Level ABG pH POC ABG pCO2 POC ABG pO2 ABG pO2 ABG HCO3 ABG O2 Saturation ABG Base Excess ABG Hemoglobin ABG Oxyhemoglobin VBG pH ABG Sodium ABG Potassium ABG Glucose Oxyhemoglobin Sodium Potassium Chloride Carbon Dioxide BUN Creatinine Glucose POC Glucose 108 H 113 H 119 H Lactic Acid Calcium Ferritin AST Alkaline Phosphatase Magnesium Lactate Dehydrogenase Total Creatine Kinase CK-MB (CK-2) C-Reactive Protein Total Protein Albumin Troponin T HDL Cholesterol Arterial Blood Glucose Urine WBC (Auto) Urine Creatinine Urine Total Protein Phenytoin Coronavirus (PCR) Crossmatch 08/05/20 08/05/20 08/05/20 05:24 05:35 05:35 WBC RBC 2.13 L Hgb 6.2 L Hct 18.9 L* MCHC RDW 18.7 H Lymph % (Auto) 10.0 L [place] % (Auto) 8.5 H Eos % (Auto) Lymph # [place] # Lymph # (Auto) 0.8 L [place] # (Auto) Eos # (Auto) Seg Neutrophils % 78.1 H Seg Neuts % (Manual) Lymphocytes % (Manual) Seg Neutrophils # Seg Neutrophils # Man Lymphocytes # (Manual) Monocytes % (Manual) Eosinophils % (Manual) Monocytes # (Manual) Eosinophils # (Manual) D-Dimer Heparin Anti-Xa Level ABG pH POC ABG pCO2 POC ABG pO2 ABG pO2 ABG HCO3 ABG O2 Saturation ABG Base Excess ABG Hemoglobin ABG Oxyhemoglobin VBG pH ABG Sodium ABG Potassium ABG Glucose Oxyhemoglobin Sodium 135 L Potassium Chloride 96.3 L Carbon Dioxide BUN 89 H Creatinine 2.8 H Glucose 116 H POC Glucose 138 H Lactic Acid Calcium 7.5 L Ferritin AST 53 H Alkaline Phosphatase 501 H Magnesium Lactate Dehydrogenase Total Creatine Kinase CK-MB (CK-2) C-Reactive Protein Total Protein 6.1 L Albumin 2.2 L Troponin T HDL Cholesterol Arterial Blood Glucose Urine WBC (Auto) Urine Creatinine Urine Total Protein Phenytoin Coronavirus (PCR) Crossmatch 08/05/20 08/05/20 08/05/20 09:15 12:17 18:00 WBC RBC Hgb Hct MCHC RDW Lymph % (Auto) [place] % (Auto) Eos % (Auto) Lymph # [place] # Lymph # (Auto) [place] # (Auto) Eos # (Auto) Seg Neutrophils % Seg Neuts % (Manual) Lymphocytes % (Manual) Seg Neutrophils # Seg Neutrophils # Man Lymphocytes # (Manual) Monocytes % (Manual) Eosinophils % (Manual) Monocytes # (Manual) Eosinophils # (Manual) D-Dimer Heparin Anti-Xa Level ABG pH POC ABG pCO2 POC ABG pO2 ABG pO2 ABG HCO3 ABG O2 Saturation ABG Base Excess ABG Hemoglobin ABG Oxyhemoglobin VBG pH ABG Sodium ABG Potassium ABG Glucose Oxyhemoglobin Sodium Potassium Chloride Carbon Dioxide BUN Creatinine Glucose POC Glucose 126 H 143 H Lactic Acid Calcium Ferritin AST Alkaline Phosphatase Magnesium Lactate Dehydrogenase Total Creatine Kinase CK-MB (CK-2) C-Reactive Protein Total Protein Albumin Troponin T HDL Cholesterol Arterial Blood Glucose Urine WBC (Auto) Urine Creatinine Urine Total Protein Phenytoin Coronavirus (PCR) Crossmatch See Detail 08/06/20 08/06/20 08/07/20 00:50 04:30 04:40 WBC RBC 2.43 L 2.48 L Hgb 7.2 L 7.4 L Hct 21.7 L 22.1 L MCHC RDW 18.1 H 18.1 H Lymph % (Auto) 9.9 L 11.7 L [place] % (Auto) 10.5 H 8.6 H Eos % (Auto) Lymph # [place] # Lymph # (Auto) 0.7 L 0.9 L [place] # (Auto) Eos # (Auto) Seg Neutrophils % 75.1 H 76.1 H Seg Neuts % (Manual) Lymphocytes % (Manual) Seg Neutrophils # Seg Neutrophils # Man Lymphocytes # (Manual) Monocytes % (Manual) Eosinophils % (Manual) Monocytes # (Manual) Eosinophils # (Manual) D-Dimer Heparin Anti-Xa Level ABG pH POC ABG pCO2 POC ABG pO2 ABG pO2 ABG HCO3 ABG O2 Saturation ABG Base Excess ABG Hemoglobin ABG Oxyhemoglobin VBG pH ABG Sodium ABG Potassium ABG Glucose Oxyhemoglobin Sodium Potassium Chloride Carbon Dioxide BUN Creatinine Glucose POC Glucose 117 H Lactic Acid Calcium Ferritin AST Alkaline Phosphatase Magnesium Lactate Dehydrogenase Total Creatine Kinase CK-MB (CK-2) C-Reactive Protein Total Protein Albumin Troponin T HDL Cholesterol Arterial Blood Glucose Urine WBC (Auto) Urine Creatinine Urine Total Protein Phenytoin Coronavirus (PCR) Crossmatch 08/07/20 08/07/20 08/08/20 05:44 06:00 00:03 WBC RBC Hgb Hct MCHC RDW Lymph % (Auto) [place] % (Auto) Eos % (Auto) Lymph # [place] # Lymph # (Auto) [place] # (Auto) Eos # (Auto) Seg Neutrophils % Seg Neuts % (Manual) Lymphocytes % (Manual) Seg Neutrophils # Seg Neutrophils # Man Lymphocytes # (Manual) Monocytes % (Manual) Eosinophils % (Manual) Monocytes # (Manual) Eosinophils # (Manual) D-Dimer Heparin Anti-Xa Level ABG pH POC ABG pCO2 POC ABG pO2 ABG pO2 ABG HCO3 ABG O2 Saturation ABG Base Excess ABG Hemoglobin ABG Oxyhemoglobin VBG pH ABG Sodium ABG Potassium ABG Glucose Oxyhemoglobin Sodium 132 L Potassium 3.3 L Chloride 92.8 L Carbon Dioxide BUN 64 H Creatinine 2.4 H Glucose POC Glucose 58 L 125 H Lactic Acid Calcium 7.0 L Ferritin AST Alkaline Phosphatase Magnesium Lactate Dehydrogenase Total Creatine Kinase CK-MB (CK-2) C-Reactive Protein Total Protein Albumin Troponin T HDL Cholesterol Arterial Blood Glucose Urine WBC (Auto) Urine Creatinine Urine Total Protein Phenytoin Coronavirus (PCR) Crossmatch Chest x-ray: image reviewed Allied health notes reviewed: RT
--- NOTE | 2020-08-08 14:08 | Progress Note ---
Assessment and Plan - Patient Problems (1) Acute kidney injury (AVANI) with acute tubular necrosis (ATN) Current Visit: Yes Status: Acute Plan to address problem: Improved volume status with HD. Last HD performed on 08/07. will hold HD over the weekend and monitor renal parameters. volume control with IV lasix 80mg bid. Patient is a poor candidate for care home HD, given her overall poor prognosis, anoxic brain injury s/p cardiac arrest. If no signs of renal recovery seen and volume status/azotemia worsens, recommend hospice. discussed further goals of care with family in the care conference with daughter, son (over the phone), primary attending, case management and RN. (2) Pneumonia due to COVID-19 virus Current Visit: Yes Status: Acute Plan to address problem: Patient has completed course of Remdesevir. Completed course of steroids. (3) Acute hypoxemic respiratory failure Current Visit: Yes Status: Acute Plan to address problem: Being managed by pulmonary. S/p Extubation 06/12. Back on respirator. Continue management by pulmonary/critical care (4) Cardiac arrest Current Visit: Yes Status: Acute Plan to address problem: s/p ACLS with eventual ROSC (5) Cardiomyopathy Current Visit: No Status: Acute Qualifiers: Cardiomyopathy type: unspecified Qualified Code(s): I42.9 - Cardiomyopathy, unspecified Plan to address problem: Patient has peripheral edema. Has not responded to Bumex infusion. cont HD for volume control (6) Type 2 diabetes mellitus with diabetic chronic kidney disease Current Visit: Yes Status: Acute Plan to address problem: Blood sugar management by primary attending (7) Hyponatremia Current Visit: Yes Status: Acute Plan to address problem: likely hypervolemic nature, improved with HD. cont IV lasix 80mg bid Subjective Date of service: 08/08/20 Principal diagnosis: Ac hypoxemic resp failure; COVID-19; pneumonia; CHF; Pulm HTN; OHS; DM II Interval history: Pt remains on vent support. unresponsive. Objective - Exam Narrative Exam: I did not do physical exam at the bedside due to PPE conservation with the current COVID-19 pandemic. - Vital Signs Vital signs: Vital Signs - 12hr 08/08/20 08/08/20 08/08/20 02:15 02:31 02:45 Temperature Pulse Rate 79 79 80 Pulse Rate [ From Monitor] Respiratory 15 15 17 Rate Blood Pressure 134/51 134/51 134/51 O2 Sat by Pulse 98 99 98 Oximetry 08/08/20 08/08/20 08/08/20 03:01 03:15 03:31 Temperature Pulse Rate 79 80 77 Pulse Rate [ From Monitor] Respiratory 16 16 15 Rate Blood Pressure 135/51 130/61 130/61 O2 Sat by Pulse 98 98 98 Oximetry 08/08/20 08/08/20 08/08/20 03:45 04:00 04:01 Temperature Pulse Rate 77 75 77 Pulse Rate [ 77 From Monitor] Respiratory 18 18 15 Rate Blood Pressure 130/61 129/53 O2 Sat by Pulse 98 98 97 Oximetry 08/08/20 08/08/20 08/08/20 04:13 04:15 04:31 Temperature 98.2 F Pulse Rate 77 76 Pulse Rate [ From Monitor] Respiratory 17 15 Rate Blood Pressure 129/53 129/53 O2 Sat by Pulse 98 98 Oximetry 08/08/20 08/08/20 08/08/20 04:45 04:58 05:01 Temperature Pulse Rate 77 78 77 Pulse Rate [ From Monitor] Respiratory 17 16 Rate Blood Pressure 129/53 129/53 130/48 O2 Sat by Pulse 98 98 98 Oximetry 08/08/20 08/08/20 08/08/20 05:15 05:31 05:45 Temperature Pulse Rate 77 77 78 Pulse Rate [ From Monitor] Respiratory 15 18 15 Rate Blood Pressure 130/48 130/48 130/48 O2 Sat by Pulse 98 98 98 Oximetry 08/08/20 08/08/20 08/08/20 06:01 06:15 06:31 Temperature Pulse Rate 78 78 79 Pulse Rate [ From Monitor] Respiratory 18 15 18 Rate Blood Pressure 132/47 132/47 132/47 O2 Sat by Pulse 98 98 98 Oximetry 08/08/20 08/08/20 08/08/20 06:45 07:01 07:15 Temperature Pulse Rate 75 76 76 Pulse Rate [ From Monitor] Respiratory 14 15 17 Rate Blood Pressure 132/47 138/51 138/51 O2 Sat by Pulse 97 98 98 Oximetry 08/08/20 08/08/20 08/08/20 07:31 07:45 08:00 Temperature 98.4 F Pulse Rate 75 77 78 Pulse Rate [ From Monitor] Respiratory 15 18 Rate Blood Pressure 138/51 138/51 O2 Sat by Pulse 98 98 97 Oximetry 08/08/20 08/08/20 08/08/20 08:01 08:15 08:26 Temperature Pulse Rate 78 76 77 Pulse Rate [ From Monitor] Respiratory 18 15 Rate Blood Pressure 139/59 139/59 138/59 O2 Sat by Pulse 98 97 98 Oximetry 08/08/20 08/08/20 08/08/20 08:31 08:40 08:45 Temperature Pulse Rate 76 77 78 Pulse Rate [ From Monitor] Respiratory 15 19 20 Rate Blood Pressure 139/59 131/48 139/59 O2 Sat by Pulse 97 97 99 Oximetry 08/08/20 08/08/20 08/08/20 09:01 09:15 09:31 Temperature Pulse Rate 76 75 78 Pulse Rate [ From Monitor] Respiratory 18 18 22 Rate Blood Pressure 131/48 131/48 131/48 O2 Sat by Pulse 97 97 97 Oximetry 08/08/20 08/08/20 08/08/20 09:45 10:01 10:15 Temperature Pulse Rate 77 78 80 Pulse Rate [ From Monitor] Respiratory 19 22 21 Rate Blood Pressure 131/48 119/47 119/47 O2 Sat by Pulse 97 98 96 Oximetry 08/08/20 08/08/20 08/08/20 10:30 10:31 10:45 Temperature Pulse Rate 79 80 80 Pulse Rate [ From Monitor] Respiratory 23 26 H Rate Blood Pressure 131/48 119/47 131/48 O2 Sat by Pulse 97 96 Oximetry 08/08/20 08/08/20 08/08/20 11:01 11:15 11:31 Temperature Pulse Rate 85 82 81 Pulse Rate [ From Monitor] Respiratory 25 H 22 23 Rate Blood Pressure 141/69 141/69 141/69 O2 Sat by Pulse 92 86 87 Oximetry 08/08/20 08/08/20 08/08/20 11:45 11:50 12:00 Temperature Pulse Rate 79 76 79 Pulse Rate [ From Monitor] Respiratory 23 30 H Rate Blood Pressure 141/69 147/61 O2 Sat by Pulse 86 85 Oximetry 08/08/20 08/08/20 08/08/20 12:01 12:15 12:31 Temperature Pulse Rate 79 85 81 Pulse Rate [ From Monitor] Respiratory 23 17 14 Rate Blood Pressure 147/61 147/61 147/61 O2 Sat by Pulse 88 97 97 Oximetry 08/08/20 08/08/20 08/08/20 12:45 13:01 13:15 Temperature Pulse Rate 82 79 79 Pulse Rate [ From Monitor] Respiratory 16 14 14 Rate Blood Pressure 147/61 130/45 130/45 O2 Sat by Pulse 98 98 96 Oximetry 08/08/20 13:31 Temperature Pulse Rate 79 Pulse Rate [ From Monitor] Respiratory 14 Rate Blood Pressure 130/45 O2 Sat by Pulse 97 Oximetry - Lab 08/07/20 04:40 08/07/20 06:00 Most recent lab results ABG pH 7.344 pH Units (7.350-7.450) L 08/02/20 11:25 ABG pCO2 39.0 mm Hg 08/02/20 11:25 ABG pO2 101.1 mm Hg (80.0-90.0) H 08/02/20 11:25 ABG HCO3 20.8 mmol/L (20.0-26.0) 08/02/20 11:25 ABG O2 Saturation 97.5 % (95.0-99.0) 08/02/20 11:25 Calcium 7.0 mg/dL (8.4-10.2) L 08/07/20 06:00 Magnesium 2.70 mg/dL (1.7-2.3) H 07/28/20 04:30 Urine Creatinine 33.3 mg/dL (0.1-20.0) H 07/06/20 13:20 Urine Sodium 21 mmol/L 07/06/20 13:20 Urine Total Protein 196 mg/dL (5-11.8) H 06/06/20 04:00 Medications & Allergies - Medications Allergies/Adverse Reactions: Allergies No Known Allergies Allergy (Verified 01/21/20 12:28) Home Medications: Home Medications Medication Instructions Recorded Confirmed Last Taken Type AtorvaSTATin [Lipitor] 20 mg PO QHS 05/12/20 05/29/20 Unknown History lisinopriL [Zestril TAB] 40 mg PO QDAY 05/12/20 05/29/20 Unknown History metFORMIN [Glucophage] 850 mg PO BID 05/12/20 05/29/20 Unknown History Acetaminophen [Acetaminophen TAB] 650 mg PO Q4H PRN tablet 05/13/20 05/29/20 Unknown Rx Dicyclomine [Bentyl] 20 mg PO BID #20 tablet 05/13/20 05/29/20 Unknown Rx Famotidine [Pepcid] 20 mg PO BID #30 tablet 05/13/20 05/29/20 Unknown Rx carvediloL [Coreg] 6.25 mg PO BID #60 05/13/20 05/29/20 Unknown Rx Active Medications: Generic Name Dose Route Start Last Admin Trade Name Freq PRN Reason Stop Dose Admin Acetaminophen 650 mg 06/09/20 10:57 06/29/20 21:18 Tylenol FEEDTUBE 650 mg Q6H PRN Administration Fever >101 Amlodipine Besylate 10 mg 06/02/20 11:00 08/08/20 10:31 Amlodipine PO 10 mg DAILY NELSON Administration Lipase/Protease/Amylase 1 each 05/29/20 13:39 07/07/20 10:[address] 10,500 Unit FEEDTUBE 1 each PRN PRN Administration For Clogged Feeding Tube Epoetin Javon 10,000 unit 07/29/20 11:29 08/07/20 13:18 Procrit IV 10,000 unit SCOTTY PRN Administration hemodialysis Glycopyrrolate 2 mg 06/09/20 14:00 08/08/20 09:10 Glycopyrrolate PO 2 mg TID NELSON Administration Heparin Sodium (Porcine) 5,000 unit 06/30/20 14:00 08/08/20 06:22 Heparin SUB-Q 5,000 unit Q8HR NELSON Administration Heparin Sodium (Porcine) 5,000 unit 07/29/20 11:29 08/02/20 23:15 Heparin IV 5,000 unit SCOTTY PRN Administration hemodialysis Hydralazine HCl 100 mg 07/14/20 14:00 08/08/20 09:00 Apresoline PO 100 mg TID NELSON Administration Hydrophilic Ointment 1 applic 05/28/20 13:49 Vaseline Lip Therapy TP Q2HR PRN Dry Lips Norepinephrine 4 mg in 250 mls @ 7.5 mls/hr 07/23/20 20:00 08/05/20 05:21 Levophed Drip 4 Mg/Ns 250 Ml IV 0 mcg/min TITR NELSON 0 mls/hr Titration Protocol 2 MCG/MIN Phenytoin 150 mg/ Sodium 103 mls @ 408 mls/hr 08/03/20 09:00 08/08/20 06:22 Chloride IV 408 mls/hr Q8HR NELSON Administration Dextrose/Sodium Chloride 1,000 mls @ 50 mls/hr 08/04/20 18:00 08/07/20 22:03 D5/0.45ns IV 50 mls/hr DIRECT NLESON Administration Sodium Chloride 100 mls @ 999 mls/hr 08/04/20 22:27 Nacl 0.9% IV SCOTTY PRN Hypotension Insulin Glargine 10 units 06/08/20 22:00 08/07/20 21:10 Lantus SUB-Q 10 units QHS NELSON Administration Insulin Human Lispro 0 unit 05/29/20 18:00 08/08/20 14:01 Humalog SUB-Q Not Given Q6H [facility] Protocol Labetalol HCl 20 mg 06/03/20 09:00 07/31/20 12:14 Labetalol IV 20 mg Q4H PRN Administration HYPERTENSION Lansoprazole 30 mg 08/08/20 10:00 08/08/20 10:33 Prevacid Solutab FEEDTUBE 30 mg QDAY NELSON Administration Levetiracetam 1,000 mg 08/08/20 22:00 Keppra PO BID NELSON Minoxidil 5 mg 07/21/20 10:00 08/08/20 10:31 Loniten PO 5 mg BID NELSON Administration Multi-Ingred Cream/Lotion/Oil/Oint 1 applic 05/28/20 13:49 Artificial Tears Ophth Oint OU Q4HR PRN Dry Eye(s) Ondansetron HCl 4 mg 06/02/20 09:00 06/09/20 16:48 Zofran IV 4 mg Q8H PRN Administration Nausea And Vomiting Senna 17.6 mg 06/03/20 10:00 08/08/20 10:30 Senokot FEEDTUBE Not Given BID NELSON Simple Syrup 15 ml 05/29/20 13:39 Simple Syrup FEEDTUBE PRN PRN Hypoglycemia Simple Syrup 30 ml 05/29/20 13:39 Simple Syrup FEEDTUBE PRN PRN Hypoglycemia Sodium Bicarbonate 325 mg 05/29/20 13:39 07/07/20 10:36 Sodium Bicarbonate FEEDTUBE 325 mg PRN PRN Administration For Clogged Feeding Tube Sodium Chloride 10 ml 05/28/20 22:00 08/08/20 10:34 Sodium Chloride Flush Syringe 10 Ml IV 10 ml BID NELSON Administration Sodium Chloride 10 ml 05/28/20 19:08 06/16/20 17:50 Sodium Chloride Flush Syringe 10 Ml IV 10 ml PRN PRN Administration LINE FLUSH
[2020-08-08 15:20] LABS: Hematocrit 21.4 % (30.3-42.9); Hemoglobin 7.1 gm/dl (10.1-14.3); Mean Corpuscular HGB Conc 33 % (30-34); Mean Corpuscular Volume 91 fl (79-97); Platelet Count 291 K/mm3 (140-440); Red Blood Count 2.36 M/mm3 (3.65-5.03); Red Cell Distribution Width 18.3 % (13.2-15.2)
[2020-08-08 15:32] LABS: Calcium 7.3 mg/dL (8.4-10.2)
[2020-08-08] MEDS: FUROSEMIDE 40 MG/4 ML INJ IV SCH (17:29)
--- NOTE | 2020-08-08 17:29 | Cat Scan Report ---
CT head/brain wo con INDICATION / CLINICAL INFORMATION: 64 years Female; MAIN. TECHNIQUE: Routine CT head without contrast. All CT scans at this location are performed using CT dos e reduction for ALARA by means of automated exposure control. Motion artifact COMPARISON: 06/03/2020 FINDINGS: BRAIN / INTRACRANIAL CONTENTS: No acute hemorrhage, mass effect, midline shift, hydrocephalus, or acu te, large territorial infarct. Mild, diffuse cerebral atrophy. Minimal, nonspecific white matter disease noted. Small lacunar infarcts seen in the lateral thalamic region on the right, which may have been subacute in age on prior. CRANIOCERVICAL JUNCTION: No significant abnormality. ORBITS: No significant abnormality of visualized orbits. SINUSES / MASTOIDS: Mastoid air cells and sinuses are completely opacified. Patient is intubated. NG tube noted. ADDITIONAL FINDINGS: Subcutaneous edema seen bilaterally, superficial to the calvarium Bilateral temporal mandibular joint disease noted. IMPRESSION: 1. No focal mass, hemorrhage, hydrocephalus, or acute, large territorial infarct. Signer Name: Mike Torres MD, III Signed: 08/08/2020 5:24 PM Workstation Name: [id number]
--- NOTE | 2020-08-08 19:13 | Progress Note ---
Assessment and Plan --Acute hypoxemic respiratory failure; vent dependent intubated on admission, extubated on 06/12/20 then placed on high flow o2 patient developed another respiratory arrest on 06/26 - reintubated Patient not tolerating weaning parameters CC following, Surgery evaluated the patient for trach and PEG COVID-19 test positive x3, trach and PEG pending -- Hypertension; well controlled Continue amlodipine, clonidine and hydralazine and minoxidil, closely monitor blood pressures PRN labetalol --s/p cardiopulmonary arrest on admission, 06/26 and 07/01, EF 45-50% on 2d echo, medical Mx per cardiology --Bradycardia Patient is on dopamine and epinephrine for bradycardia beta-hugh discontinued, Heart rate is in the 60s to 70s --Anoxic brain injury, neurology consulted, neuro requested MRI brain, EEG MRI brain could not be done due to body habitus, --Seizures seizure precautions; continue Keppra, and Dilantin EEG showed epileptiform discharges per review of neurology note --Rectal bleeding; resolved --Acute blood loss anemia; total 4 units PRBC transfused monitor H&H, GI following, no plans of endoscopy --Severe sepsis; completed antibiotics per ID persistently positive for COVID-19 and treated for Klebsiella pneumoniae --COVID-19 b/l PNA Completed remdesivir on 06/02 Completed dexamethasone - Last dose 06/07 COVID 19 test positive x 3 during this admission --Superficial left cephalic vein DVT/elevated D-dimers[COVID 19] Patient initially started on heparin drip from 05/29/20 D-dimers improved [id number] treated with Eliquis 5 mg twice a day for 1 week[per ID] stop date 06/26/2020 -- Acute toxic metabolic encephalopathy, POA likely from sepsis and s/p cardiac arrest with possible anoxic injury -- Acute renal failure: Worsening BUN/creatinine 123/3.4 > 105/3.1 avoid nephrotoxins, Nephrology note reviewed Status post right femoral vascular catheter placement started on hemodialysis Discussed with Dr. Koehler --Klebsiella pneumonia: ID evaluated completed second round of 5 days of cefepime on 07/04/2020 --Acute on chronic systolic heart failure Cardiology following. Ef 45% --Transaminitis. Etiology likely from COVID-19. cont to monitor --Hyperkalemia; improved --Hyponatremia Monitor electrolytes, now on HD --Shock; resolved -- DVT prophylaxis Eliquis, SCD to bilateral lower extremities while in bed -- Advance care planning Patient is critically ill with multiple medical problems Poor prognosis, family updated and patient is full code per family request The high probability of a clinically significant, sudden or life threatening deterioration of the [OPERATIONS OFFICER, CVS, renal] system(s) required my full and direct attention, intervention and personal management. The aggregate critical care time was [34] minutes. This time is in addition to time spent performing reported procedures but includes the following: [x] Data Review and interpretation [x] Patient assessment and monitoring of vital signs [x] Documentation [x] Medication orders and management Brief History: 64 YO Female with a medical history of HTN, Diastolic CHF, Pulmonary HTN, DM, Obesity Hypoventilation Syndrome presents to ED for evaluation of shortness of breath. As per staff, the EMS was notified for difficulty breathing. Upon arrival to the patient's home the patient was found to be in distress and was subsequently transported to [facility] for further evaluation and care. In route to [facility] the patient developed cardiac arrest and was treated in accordance with ACLS protocol with return of ROSC. Patient was seen and evaluated in the emergency department and was intubated and placed on ventilatory support. Patient admitted to ICU. Critical care team consulted in ED. She was found to have COVID-19 infection and was started on steroids and remdesivir. ID was consulted. Cardiology was consulted for her systolic heart failure and cardiac arrest. Patient completed treatment for COVID-19, then develop superimposed bacterial pneumonia with Klebsiella. She is now extubated, 06/12/2020 but remains confused and requiring high flow O2 and intermittent BiPAP. Patient had another cardiac arrest reintubated 06/26/2020, currently in ICU vent dependent, unable to do trach and PEG due to persistent COVID-19 positive state, as well as anoxic brain injury, unable to get MRI , neurology following. 05/28/2020 COVID-19 test positive 06/29/2020 COVID-19 test positive 07/14/2020 COVID-19 test positive 06/01. Patient remains intubated and on ventilatory support today. Patient has multiple organ system failure and has poor prognosis. Patient did not experien ce significant medical decompensation overnight but no improvement with current therapy. 06/02. Remains intubated. her BP is elevated. Started on nicardipine drip. Cardiology following. 06/03-06/04. BP is better. Hb stable. Completed remdesivir. ID , Cardiology and Critical care team on board 06/05. Bump in creatinine. I/O reviewed. Nephrology consulted. 06/06. Has slight improvement in renal function. Nephrology on board. On SBT today. Vitals stable. 06/07. Stable renal function. No need for HD as per nephrology. She is making urine. Plan for SBT. 06/08. Off sedation and very lethargic. Her BUN is going up - effect of steroids vs GI bleed. Her hemoglobin remains stable. Will check stool guaiac. Nephrology is following. WBC bumped to 16 today. 06/09: remains intubated, wbc trended up, Cr slightly trending down. cont TF, wean off vent as tolerated. 06/10: Cr trending down, cont to wean off vent as tolerated. 06/10; Cr much improved, cont iv fluid, tolerating tube feeding. stopped vac, iv cefepime for total 10 days. 06/11; creatinine 1.5 today, sodium level has normalized. Continue tube feeding, continue cefepime for 10 days. Continue to wean off as tolerated. 06/12: planned for extubation today 06/13: extubated yesterday, now on Bipap 06/14: patient on Bipap, remains on TF, restraint. cont to follow clinically 06/15: patient on high flow O2,remains on TF, restraint. cont to follow clinicall y. transfer to [facility] 06/16: Patient remains on high flow O2, intermittently on BiPAP. Tolerating tube feeding. cont to monitor at [facility] 06/17; patient on BiPAP. Remains confused and on tube feeding. Continue to monitor at [facility]. Wean off O2 as tolerated. 06/18; patient feels slightly better on high flow oxygen, minimally communicative, stable to be transferred out of [facility] to telemetry 06/20; remains hypoxic on high flow oxygen, today noncommunicative sleeping all the time, vital signs noted 06/21; more alert and awake confused at times and pulling, restraint for safety, on high flow oxygen We will request physical therapy once more stable 06/22; PT unable to assess due to safety concerns, remains hypoxic on high flow oxygen, BiPAP at night. minimally communicative 06/23: Remains on high flow O2, order for speech eval, continue tube feeding. Creatinine noted to be elevated today -2.4, increase IV fluid hydration. 06/24: Kidney function started worsening 06/23 -likely from hypotension. patient had episodes of hypotension on 06/22. Kidney function is unchanged from yesterday. No further episodes of hypotension. Follow-up electrolytes and renal function. patient remains on high flow O2 06/25: patient on 15L o2 with n/c. on Bipap at night. follow renal function and follow bmp . Placement not possible as patient unfunded. wean off o2 as tolerated. 06/26: hb 6.9 today, transfuse one unit. wean off from O2 as tolerated. check stool for occult blood. consult GI if stool is positive for blood. 06/27; Code blue called yesterday. ACLS initiated, Pt found to have Asystolic Arrest with eventual return of perfusing cardiac rhythm. patient reintubated during code, transferred to ICU, called family and updated 06/28: Patient is spiking fever, started on empiric antibiotic, ordered blood urine and sputum culture. We will reconsult ID. Discussed with patient's son in the evening. Family wants to continue full CODE STATUS. Discussed with critical care attending and RN in length. 06/29: Repeat COVID-19 test is positive. Patient remains on ventilator, continue tube feeding diet. Renal function stable, H&H stable. GI recommendation appreciated -no plan for endoscopy now as there is no active bleeding. 06/30: Renal function improving, patient remains positive for COVID. Tolerating tube feeding, wean off vent as tolerated. Patient remains with poor prognosis but 07/01: Remains intubated, continue to wean off as tolerated, continue antibiotic for Klebsiella pneumoniae. COVID-19 reordered on 06/29 and came as positive. ID following, pulmonary critical care following. Poor prognosis, family wants to continue full code. 07/05; patient has significant drop in H&H, hemoglobin today is 6.9, heme positive stool, type and cross transfuse 2 units of PRBC GI following, no plans of endoscopy 07/06; status post 2 units PRBC transfusion yesterday, Hb improved to 7.7. Monitor H&H transfuse additional PRBC as needed Remains intubated on vent, wean as tolerated and extubate 07/07; Hb dropped to 7.7-6.8, no new episodes of bleeding, transfuse additional 1 unit PRBC today Closely monitor H&H, worsening renal function, hyperkalemia, calcium chloride Kayexalate, gentle hydration, reconsult nephrology 07/08: Patient not tolerating weaning parameters, if unable to wean may need trach and PEG, patient critically ill poor prognosis 07/09; patient remains intubated, trial of CPAP, will closely monitor wean as tolerated and extubate, 07/10: Remains intubated, wean as tolerated and extubate, if unable to wean may need trach and PEG 07/11/2020. Patient currently on mechanical ventilation AC/PRVC with rate of 12, tidal volume 450, FiO2 30% and PEEP of 6 07/12/2020. Patient placed on CPAP with pressure support of 10 and tolerating well. Continue PSB trials as tolerated. 07/13/2020. Patient currently with AC mode rate 12, tidal volume 450, FiO2 30% and PEEP of 6. Surgery has been consulted for trach and PEG placement. Recall nephrology for renal insufficiency. 07/14/20; surgery evaluated for trach and PEG , pending call with test which is is positive today COVID-19 test positive x3 since admission 07/16; trach and PEG pending neuro evaluation 07/17; vent dependent, trach PEG pending neuro evaluation, pending MRI EEG study[already ordered] 07/18; unable to do MRI, due to body habitus, morbid obesity, radiology consult Patient critically ill very poor prognosis 07/19; remains intubated on vent, clinically no change 07/20; unable to wean, needs trach and PEG, need MRI , unable to do due to body habitus 07/21; clinically no change, remains intubated on ventilatory support 07/22; I recommend family meeting, to discuss the goals of treatment, discussed with case management 07/23; patient's blood pressures in the lower range, will hold antihypertensives, fluid bolus, if no improvement Levophed per protocol 07/24: Patient remains critically ill, unable to obtain MRI at this facility and unstable for transfer, Will reconsult Nephrology as creatinine now worse, with worsening Hypotension and Hyperkalemia- Overnight the patient required pressors Secondary to Hypotension, Will place PICC line. Will give kayxalate, continue to hold all BP meds. Hyponatermia improving. 07/24; patient remains to critically ill, nephrology consult appreciated, creatinine is worsening. Hypotension resolved with. Still patient is hypernatremic 07/26; patient is hypertensive and her blood pressure medications were resumed and as needed medications also started. Patient is being followed by nephrology for hyponatremia and AVANI. Patient has anemia. We will check labs in the [facility]. 07/27; patient is still intubated and on mechanical ventilation. Followed by pulmonary critical care. Nephrology is considering to dialyze the patient after discussing with the family. 07/28; patient is intubated and on mechanical ventilation, patient is nonresponsive without pressors. Creatinine is trending up and nephrology is considering to dialysis. I called her son Toño at [phone] and discussed about the prognosis of the patient and I gave the option of hospice care/withdraw care and he said he is going to talk to his sister and will get back to me. 07/29/2020;patient is intubated and on mechanical ventilation, patient is nonresponsive without pressors. Creatinine is trending up and nephrology is considering to dialysis. I called her son Toño on 07/28 at [phone] and discussed about the prognosis of the patient and I gave the option of hospice care/withdraw care and he said he is going to talk to his sister and will get back to me. Nephrology discussed with the son this morning and the son said he want aggressive management and she is going to be started on dialysis. 07/30; patient's son wants hospice. Declined dialysis. 07/31; plan was to send the patient to hospice but her son does not want to sign AND. Family declined dialysis. Going to talk to the son. 08/01; plans to send the patient to hospice. Patient does not want to sign AND. We called him back but he did not answer. 08/02 intubated, unresponsive, all interdisciplinary notes reviewed, apparently patient's family opted for dialysis, all interdisciplinary notes reviewed 08/03 remains intubated, unresponsive, status post right femoral vein vascular catheter placement, scheduled for hemodialysis today, lab results reviewed. Patient's NG tube feedings are on hold as the patient apparently developed emesis with questionable fecal odor. Patient is now on NG tube to low intermittent suction. 08/04: TF on hold. CT abdomen/pelvis yesterday showed no obstruction, cont to monitor. follow BMP, HD as needed 08/05: plan to resume TF, discussed with nephrology - plan to continue HD temporarily. cont to monitor BMP. patient remains unresponsive, family wish to continue aggressive care and full code status 08/06: started on TF at low rate, cont supportive care. CM to arrange family meeting to address goal of care with family. 08/07: discussed with daughter and son in a family meeting with nephrology, CM, RN and legal intern. patient has very poor prognosis and recommended hospice by nephrology and by me, family will discuss the option for hospice among themselves again. cont supportive care for now. 08/08: order CT head today. tolerating TF. continue supportive care. wean off vent as tolerated. family still didnot decided for hospice. Subjective Date of service: 08/08/20 Principal diagnosis: Ac hypoxemic resp failure; COVID-19; pneumonia; CHF; Pulm HTN; OHS; DM II Interval history: Patient seen and examined Vitals reviewed, intubated, remains unresponsive Discussed with RN at the bedside discussed with daughter and son in a family meeting with nephrology, CM, RN and legal intern Objective - Exam Narrative Exam: General appearance: Present: obese (Morbidly obese), other (intubated) - EENT Eyes: No congestion or icterus - Neck Neck: Present: supple, normal ROM - Respiratory Respiratory effort: normal Respiratory: bilateral: diminished, rhonchi, negative: rales, wheezing - Cardiovascular Rhythm: regular Heart Sounds: Present: S1 & S2 - Extremities Extremities: no ischemia, No edema - Abdominal General gastrointestinal: soft, non-tender, obese, normal bowel sounds - Integumentary Integumentary: Present: clear, warm - Psychiatric Psychiatric: other (intubated) - Neurologic Neurologic: other (intubated), unresponsive - Constitutional Vitals: Vital Signs - 12hr 08/08/20 08/08/20 08/08/20 07:15 07:31 07:45 Temperature Pulse Rate 76 75 77 Respiratory 17 15 18 Rate Blood Pressure 138/51 138/51 138/51 O2 Sat by Pulse 98 98 98 Oximetry 08/08/20 08/08/20 08/08/20 08:00 08:01 08:15 Temperature 98.4 F Pulse Rate 78 78 76 Respiratory 18 15 Rate Blood Pressure 139/59 139/59 O2 Sat by Pulse 97 98 97 Oximetry 08/08/20 08/08/20 08/08/20 08:26 08:31 08:40 Temperature Pulse Rate 77 76 77 Respiratory 15 19 Rate Blood Pressure 138/59 139/59 131/48 O2 Sat by Pulse 98 97 97 Oximetry 08/08/20 08/08/20 08/08/20 08:45 09:01 09:15 Temperature Pulse Rate 78 76 75 Respiratory 20 18 18 Rate Blood Pressure 139/59 131/48 131/48 O2 Sat by Pulse 99 97 97 Oximetry 08/08/20 08/08/20 08/08/20 09:31 09:45 10:01 Temperature Pulse Rate 78 77 78 Respiratory 22 19 22 Rate Blood Pressure 131/48 131/48 119/47 O2 Sat by Pulse 97 97 98 Oximetry 08/08/20 08/08/20 08/08/20 10:15 10:30 10:31 Temperature Pulse Rate 80 79 80 Respiratory 21 23 Rate Blood Pressure 119/47 131/48 119/47 O2 Sat by Pulse 96 97 Oximetry 08/08/20 08/08/20 08/08/20 10:45 11:01 11:15 Temperature Pulse Rate 80 85 82 Respiratory 26 H 25 H 22 Rate Blood Pressure 131/48 141/69 141/69 O2 Sat by Pulse 96 92 86 Oximetry 08/08/20 08/08/20 08/08/20 11:31 11:45 11:50 Temperature Pulse Rate 81 79 76 Respiratory 23 23 30 H Rate Blood Pressure 141/69 141/69 147/61 O2 Sat by Pulse 87 86 85 Oximetry 08/08/20 08/08/20 08/08/20 12:00 12:01 12:15 Temperature 98.6 F Pulse Rate 79 79 85 Respiratory 23 17 Rate Blood Pressure 147/61 147/61 O2 Sat by Pulse 88 97 Oximetry 08/08/20 08/08/20 08/08/20 12:31 12:45 13:01 Temperature Pulse Rate 81 82 79 Respiratory 14 16 14 Rate Blood Pressure 147/61 147/61 130/45 O2 Sat by Pulse 97 98 98 Oximetry 08/08/20 08/08/20 08/08/20 13:15 13:31 13:45 Temperature Pulse Rate 79 79 78 Respiratory 14 14 14 Rate Blood Pressure 130/45 130/45 130/45 O2 Sat by Pulse 96 97 97 Oximetry 08/08/20 08/08/20 08/08/20 14:01 14:15 14:31 Temperature Pulse Rate 78 77 74 Respiratory 15 19 18 Rate Blood Pressure 128/45 128/45 128/45 O2 Sat by Pulse 97 97 98 Oximetry 08/08/20 08/08/20 08/08/20 14:45 15:00 15:15 Temperature Pulse Rate 76 76 74 Respiratory 18 17 17 Rate Blood Pressure 128/45 128/45 128/47 O2 Sat by Pulse 97 98 98 Oximetry 08/08/20 08/08/20 08/08/20 15:31 15:45 16:00 Temperature 98.9 F Pulse Rate 72 73 76 Respiratory 17 19 Rate Blood Pressure 128/45 128/45 O2 Sat by Pulse 98 99 Oximetry 08/08/20 08/08/20 08/08/20 16:01 16:15 16:30 Temperature Pulse Rate 76 74 78 Respiratory 17 18 Rate Blood Pressure 130/48 130/48 132/61 O2 Sat by Pulse 98 98 96 Oximetry 08/08/20 08/08/20 08/08/20 17:09 17:15 17:31 Temperature Pulse Rate 88 80 Respiratory 20 17 Rate Blood Pressure 132/61 O2 Sat by Pulse 97 96 96 Oximetry 08/08/20 08/08/20 08/08/20 17:45 18:01 18:15 Temperature Pulse Rate 76 74 75 Respiratory 17 15 16 Rate Blood Pressure 130/48 140/57 140/57 O2 Sat by Pulse 97 98 96 Oximetry 08/08/20 08/08/20 08/08/20 18:31 18:50 19:01 Temperature Pulse Rate 74 73 73 Respiratory 17 16 17 Rate Blood Pressure 140/57 145/59 O2 Sat by Pulse 97 97 97 Oximetry - Labs CBC & Chem 7: 08/11/20 03:55 08/11/20 03:55 Labs: Abnormal lab results 08/05/20 08/08/20 08/08/20 Range/Units 09:15 00:03 12:58 RBC (3.65-5.03) M/mm3 Hgb (10.1-14.3) gm/dl Hct (30.3-42.9) % RDW (13.2-15.2) % Sodium (137-145) mmol/L Potassium (3.6-5.0) mmol/L Chloride (98-107) mmol/L BUN (7-17) mg/dL Creatinine (0.6-1.2) mg/dL Glucose (65-100) mg/dL POC Glucose 125 H 134 H (70-105) mg/dL Calcium (8.4-10.2) mg/dL Phenytoin (10.0-20.0) ug/mL Crossmatch See Detail 08/08/20 08/08/20 08/08/20 Range/Units 15:00 15:00 15:00 RBC 2.36 L (3.65-5.03) M/mm3 Hgb 7.1 L (10.1-14.3) gm/dl Hct 21.4 L (30.3-42.9) % RDW 18.3 H (13.2-15.2) % Sodium 130 L (137-145) mmol/L Potassium 3.1 L (3.6-5.0) mmol/L Chloride 91.5 L (98-107) mmol/L BUN 52 H (7-17) mg/dL Creatinine 2.3 H (0.6-1.2) mg/dL Glucose 135 H (65-100) mg/dL POC Glucose (70-105) mg/dL Calcium 7.3 L (8.4-10.2) mg/dL Phenytoin 4.7 L (10.0-20.0) ug/mL Crossmatch 08/08/20 Range/Units 17:39 RBC (3.65-5.03) M/mm3 Hgb (10.1-14.3) gm/dl Hct (30.3-42.9) % RDW (13.2-15.2) % Sodium (137-145) mmol/L Potassium (3.6-5.0) mmol/L Chloride (98-107) mmol/L BUN (7-17) mg/dL Creatinine (0.6-1.2) mg/dL Glucose (65-100) mg/dL POC Glucose 131 H (70-105) mg/dL Calcium (8.4-10.2) mg/dL Phenytoin (10.0-20.0) ug/mL Crossmatch HEART Score - HEART Score Troponin: Troponin T 0.067 ng/mL (0.00-0.029) H 07/01/20 06:01
[2020-08-08] MEDS: levETIRAcetam 500 MG/5 ML ORAL LIQD PO SCH (22:16)
[2020-08-08] MEDS: INSULIN GLARGINE 100 UNITS/ML SUB-Q SCH (22:16)
[2020-08-09] MEDS ORDERED: POTASSIUM CHLORIDE ER 20 MEQ TAB PO ONE (00:35)
[2020-08-09] MEDS: INSULIN LISPRO 100 UNIT/ML VIAL 3 mL SUB-Q SCH ×4 (00:59→18:35)
[2020-08-09] MEDS: SENNOSIDES ORAL LIQD 8.8 MG/5 ML ORAL LIQD FEEDTUBE SCH ×3 (00:59→22:14)
[2020-08-09 06:07] LABS: Calcium 7.4 mg/dL (8.4-10.2)
[2020-08-09] MEDS: HEPARIN 5,000 UNIT/1 ML VIAL SUB-Q SCH ×3 (06:24→22:14)
[2020-08-09] MEDS: PHENYTOIN IV SCH ×3 (06:24→22:11)
[2020-08-09] MEDS: FUROSEMIDE 40 MG/4 ML INJ IV SCH ×2 (06:24→17:32)
[2020-08-09] MEDS: SODIUM CHLORIDE 0.9% IV SCH ×3 (06:24→22:11)
[2020-08-09] MEDS: levETIRAcetam 500 MG/5 ML ORAL LIQD PO SCH ×2 (09:57→22:16)
[2020-08-09] MEDS: LANSOPRAZOLE 30 MG SOLUTAB FEEDTUBE SCH (09:57)
[2020-08-09] MEDS: GLYCOPYRROLATE 2 MG TAB PO SCH ×3 (09:57→22:16)
[2020-08-09] MEDS: amLODIPine 10 MG TAB PO SCH (09:59)
[2020-08-09] MEDS: hydrALAZINE 100 MG TAB PO SCH ×3 (09:59→21:25)
[2020-08-09] MEDS: MINOXIDIL 2.5 MG TAB PO SCH ×2 (09:59→22:17)
--- NOTE | 2020-08-09 10:24 | Progress Note ---
Assessment and Plan - Patient Problems (1) Acute kidney injury (AVANI) with acute tubular necrosis (ATN) Current Visit: Yes Status: Acute Plan to address problem: Improved volume status with HD. Last HD performed on 08/07. will hold HD over the weekend and monitor renal parameters. volume control with IV lasix 80mg bid. Patient is a poor candidate for correction HD, given her overall poor prognosis, anoxic brain injury s/p cardiac arrest. If no signs of renal recovery seen and volume status/azotemia worsens, recommend hospice. discussed further goals of care with family in the care conference with daughter, son (over the phone), primary attending, case management and RN. (2) Pneumonia due to COVID-19 virus Current Visit: Yes Status: Acute Plan to address problem: Patient has completed course of Remdesevir. Completed course of steroids. (3) Acute hypoxemic respiratory failure Current Visit: Yes Status: Acute Plan to address problem: Being managed by pulmonary. S/p Extubation 06/12. Back on respirator. Continue management by pulmonary/critical care (4) Cardiac arrest Current Visit: Yes Status: Acute Plan to address problem: s/p ACLS with eventual ROSC (5) Cardiomyopathy Current Visit: No Status: Acute Qualifiers: Cardiomyopathy type: unspecified Qualified Code(s): I42.9 - Cardiomyopathy, unspecified Plan to address problem: Patient has peripheral edema. Has not responded to Bumex infusion. cont HD for volume control (6) Type 2 diabetes mellitus with diabetic chronic kidney disease Current Visit: Yes Status: Acute Plan to address problem: Blood sugar management by primary attending (7) Hyponatremia Current Visit: Yes Status: Acute Plan to address problem: likely hypervolemic nature, improved with HD. cont IV lasix 80mg bid Subjective Date of service: 08/09/20 Principal diagnosis: Ac hypoxemic resp failure; COVID-19; pneumonia; CHF; Pulm HTN; OHS; DM II Interval history: Pt remains on vent support. unresponsive. Objective - Exam Narrative Exam: I did not do physical exam at the bedside due to PPE conservation with the current COVID-19 pandemic. - Vital Signs Vital signs: Vital Signs - 12hr 08/08/20 08/08/20 08/08/20 23:31 23:35 23:45 Temperature Pulse Rate 73 72 74 Pulse Rate [ From Monitor] Respiratory 16 19 17 Rate Blood Pressure 127/50 127/50 127/50 O2 Sat by Pulse 97 97 97 Oximetry 08/09/20 08/09/20 08/09/20 00:00 00:01 00:15 Temperature 98.8 F Pulse Rate 71 73 71 Pulse Rate [ 71 From Monitor] Respiratory 20 19 17 Rate Blood Pressure 134/52 134/52 O2 Sat by Pulse 98 98 98 Oximetry 08/09/20 08/09/20 08/09/20 00:31 00:45 01:05 EDT Temperature Pulse Rate 71 73 71 Pulse Rate [ From Monitor] Respiratory 22 17 19 Rate Blood Pressure 134/52 134/52 128/56 O2 Sat by Pulse 98 98 99 Oximetry 08/09/20 08/09/20 08/09/20 01:22 EDT 01:31 EST 01:45 EST Temperature Pulse Rate 71 72 Pulse Rate [ From Monitor] Respiratory 16 18 Rate Blood Pressure 128/56 125/52 128/56 O2 Sat by Pulse 98 87 98 Oximetry 08/09/20 08/09/20 08/09/20 02:00 02:01 02:15 Temperature Pulse Rate 75 76 Pulse Rate [ 75 From Monitor] Respiratory 20 12 18 Rate Blood Pressure 125/52 125/52 O2 Sat by Pulse 98 98 98 Oximetry 08/09/20 08/09/20 08/09/20 02:31 02:45 03:01 Temperature Pulse Rate 75 74 74 Pulse Rate [ From Monitor] Respiratory 16 19 13 Rate Blood Pressure 113/49 113/49 112/49 O2 Sat by Pulse 98 98 98 Oximetry 08/09/20 08/09/20 08/09/20 03:15 03:31 03:45 Temperature Pulse Rate 73 75 73 Pulse Rate [ From Monitor] Respiratory 18 11 L 14 Rate Blood Pressure 112/49 112/49 112/49 O2 Sat by Pulse 98 98 98 Oximetry 08/09/20 08/09/20 08/09/20 04:00 04:01 04:15 Temperature 99.3 F Pulse Rate 75 74 74 Pulse Rate [ 71 From Monitor] Respiratory 18 18 Rate Blood Pressure 112/49 127/43 127/43 O2 Sat by Pulse 98 98 98 Oximetry 08/09/20 08/09/20 08/09/20 04:31 04:45 05:01 Temperature Pulse Rate 74 74 73 Pulse Rate [ From Monitor] Respiratory 19 20 17 Rate Blood Pressure 127/43 127/43 122/41 O2 Sat by Pulse 98 98 99 Oximetry 08/09/20 08/09/20 08/09/20 05:15 05:31 05:45 Temperature Pulse Rate 73 76 72 Pulse Rate [ From Monitor] Respiratory 18 9 L 14 Rate Blood Pressure 122/41 122/41 122/41 O2 Sat by Pulse 98 98 98 Oximetry 08/09/20 08/09/20 08/09/20 06:01 08:00 08:30 Temperature 99.5 F Pulse Rate 72 72 Pulse Rate [ From Monitor] Respiratory 17 Rate Blood Pressure 121/46 130/70 O2 Sat by Pulse 99 99 Oximetry - Lab 08/08/20 15:00 08/09/20 05:05 Most recent lab results ABG pH 7.344 pH Units (7.350-7.450) L 08/02/20 11:25 ABG pCO2 39.0 mm Hg 08/02/20 11:25 ABG pO2 101.1 mm Hg (80.0-90.0) H 08/02/20 11:25 ABG HCO3 20.8 mmol/L (20.0-26.0) 08/02/20 11:25 ABG O2 Saturation 97.5 % (95.0-99.0) 08/02/20 11:25 Calcium 7.4 mg/dL (8.4-10.2) L 08/09/20 05:05 Magnesium 2.70 mg/dL (1.7-2.3) H 07/28/20 04:30 Urine Creatinine 33.3 mg/dL (0.1-20.0) H 07/06/20 13:20 Urine Sodium 21 mmol/L 07/06/20 13:20 Urine Total Protein 196 mg/dL (5-11.8) H 06/06/20 04:00 Medications & Allergies - Medications Allergies/Adverse Reactions: Allergies No Known Allergies Allergy (Verified 01/21/20 12:28) Home Medications: Home Medications Medication Instructions Recorded Confirmed Last Taken Type AtorvaSTATin [Lipitor] 20 mg PO QHS 05/12/20 05/29/20 Unknown History lisinopriL [Zestril TAB] 40 mg PO QDAY 05/12/20 05/29/20 Unknown History metFORMIN [Glucophage] 850 mg PO BID 05/12/20 05/29/20 Unknown History Acetaminophen [Acetaminophen TAB] 650 mg PO Q4H PRN tablet 05/13/20 05/29/20 Unknown Rx Dicyclomine [Bentyl] 20 mg PO BID #20 tablet 05/13/20 05/29/20 Unknown Rx Famotidine [Pepcid] 20 mg PO BID #30 tablet 05/13/20 05/29/20 Unknown Rx carvediloL [Coreg] 6.25 mg PO BID #60 05/13/20 05/29/20 Unknown Rx Active Medications: Generic Name Dose Route Start Last Admin Trade Name Freq PRN Reason Stop Dose Admin Acetaminophen 650 mg 06/09/20 10:57 06/29/20 21:18 Tylenol FEEDTUBE 650 mg Q6H PRN Administration Fever >101 Amlodipine Besylate 10 mg 06/02/20 11:00 08/09/20 09:59 Amlodipine PO 10 mg DAILY NELSON Administration Lipase/Protease/Amylase 1 each 05/29/20 13:39 07/07/20 10:[address] 10,500 Unit FEEDTUBE 1 each PRN PRN Administration For Clogged Feeding Tube Epoetin Javon 10,000 unit 07/29/20 11:29 08/07/20 13:18 Procrit IV 10,000 unit SCOTTY PRN Administration hemodialysis Furosemide 80 mg 08/08/20 18:00 08/09/20 06:24 Lasix IV 80 mg 0600,1800 NELSON Administration Glycopyrrolate 2 mg 06/09/20 14:00 08/09/20 09:57 Glycopyrrolate PO 2 mg TID NELSON Administration Heparin Sodium (Porcine) 5,000 unit 06/30/20 14:00 08/09/20 06:24 Heparin SUB-Q 5,000 unit Q8HR NELSON Administration Heparin Sodium (Porcine) 5,000 unit 07/29/20 11:29 08/02/20 23:15 Heparin IV 5,000 unit SCOTTY PRN Administration hemodialysis Hydralazine HCl 100 mg 07/14/20 14:00 08/09/20 09:59 Apresoline PO 100 mg TID NELSON Administration Hydrophilic Ointment 1 applic 05/28/20 13:49 Vaseline Lip Therapy TP Q2HR PRN Dry Lips Norepinephrine 4 mg in 250 mls @ 7.5 mls/hr 07/23/20 20:00 08/05/20 05:21 Levophed Drip 4 Mg/Ns 250 Ml IV 0 mcg/min TITR NELSON 0 mls/hr Titration Protocol 2 MCG/MIN Phenytoin 150 mg/ Sodium 103 mls @ 408 mls/hr 08/03/20 09:00 08/09/20 06:49 Chloride IV Infused Q8HR NELSON Infusion Sodium Chloride 100 mls @ 999 mls/hr 08/04/20 22:27 Nacl 0.9% IV SCOTTY PRN Hypotension Insulin Glargine 10 units 06/08/20 22:00 08/08/20 22:16 Lantus SUB-Q 10 units QHS NELSON Administration Insulin Human Lispro 0 unit 05/29/20 18:00 08/09/20 06:47 Humalog SUB-Q Not Given Q6H [facility] Protocol Labetalol HCl 20 mg 06/03/20 09:00 07/31/20 12:14 Labetalol IV 20 mg Q4H PRN Administration HYPERTENSION Lansoprazole 30 mg 08/08/20 10:00 08/09/20 09:57 Prevacid Solutab FEEDTUBE 30 mg QDAY NELSON Administration Levetiracetam 1,000 mg 08/08/20 22:00 08/09/20 09:57 Keppra PO 1,000 mg BID NELSON Administration Minoxidil 5 mg 07/21/20 10:00 08/09/20 09:59 Loniten PO 5 mg BID NELSON Administration Multi-Ingred Cream/Lotion/Oil/Oint 1 applic 05/28/20 13:49 Artificial Tears Ophth Oint OU Q4HR PRN Dry Eye(s) Ondansetron HCl 4 mg 06/02/20 09:00 06/09/20 16:48 Zofran IV 4 mg Q8H PRN Administration Nausea And Vomiting Senna 17.6 mg 06/03/20 10:00 08/09/20 09:58 Senokot FEEDTUBE 17.6 mg BID NELSON Administration Simple Syrup 15 ml 05/29/20 13:39 Simple Syrup FEEDTUBE PRN PRN Hypoglycemia Simple Syrup 30 ml 05/29/20 13:39 Simple Syrup FEEDTUBE PRN PRN Hypoglycemia Sodium Bicarbonate 325 mg 05/29/20 13:39 07/07/20 10:36 Sodium Bicarbonate FEEDTUBE 325 mg PRN PRN Administration For Clogged Feeding Tube Sodium Chloride 10 ml 05/28/20 22:00 08/09/20 10:00 Sodium Chloride Flush Syringe 10 Ml IV 10 ml BID NELSON Administration Sodium Chloride 10 ml 05/28/20 19:08 06/16/20 17:50 Sodium Chloride Flush Syringe 10 Ml IV 10 ml PRN PRN Administration LINE FLUSH
--- NOTE | 2020-08-09 14:45 | Progress Note ---
Assessment and Plan Cardiopulmonary arrest 06/26/2020 with ROSC Acute hypoxemic respiratory failure , extubated now re-intubated Anemia s/p PRBC Severe COVID infection Multifocal pneumonia Morbid obesity Acute toxic metabolic encephalopathy AVANI secondary to COVID/vasomotor nephropathy Bilateral pulmonary edema. Bilateral pleural effusions. History of congestive heart failure. History of pulmonary hypertension. History of hypertension. Diabetes. Obesity hypoventilation syndrome. Oropharyngeal dysphagia Non convulsive status -CXR, ABG as clinically indicated -Continue to trend temperature curve and WCC -Continue daily SBTs as tolerated, her mental status precludes liberation from MVS Plan for removal of trialysis catheter per Renal, will place on high dose diuretics and monitor closely -Supportive transfusions to keep HgB >7g/dL as indicated -Continue supportive care -On going discussions re goals of care with the family. Discussed with Dr. Xie -COVID negative -Continue to avoid nephrotoxins, closely monitor renal function, dose all medications for renal function - VAP bundle addressed -Aspiration precautions, HOB >40 -lung protective strategies-ARDS. net - continue bronchodilators with pulmonary hygiene per RT - wean per pulmonary driven protocols otherwise - continue to avoid benzodiazepines, reduce the possibility of delirium - prn analgesia per CPOT score - Continue to wean supplemental oxygen for target O2 sats > 92% -Continue to hold sedation, if needed intermittent dosing - conservative fluid management measures as tolerated by hemodynamics and renal function - Bronchodilators with pulmonary hygiene per RT - Accuchecks with glycemic control per SSI (While critically ill target blood glucose of 140-180 mg/dL; avoid hypoglycemia) - Maintenance of sleep-wake cycle, avoid delirium - Aspiration precautions, HOB >40 - Stress ulcer prophylaxis -Famotidine - Mobility protocol, off loading and skin assessment for pressure ulcer prevention COVID SPECIFIC INTERVENTIONS -Airborne, contact isolation for COVID per facility protocols - s/p Remdesivir -IV steroids-Dexamethasone -Trend d-dimer,and other inflammatory markers per facility protocol -Convalescent plasma therapy per facility protocol -Continue all supportive care Discussed with the ICU team-RT,RN, Life threatening condition- Cardiopulmonary arrest with ROSC, Sepsis ;COVID 19 acute hypoxemic respiratory failure on MVS Mortality/Morbidity- High Complexity of medical decision making- Moderate CONDITION: CRITICAL PROGNOSIS: GUARDED-POOR CODE STATUS: FULL CODE The high probability of a clinically significant, sudden or life-threatening deterioration of the [respiratory & neurology, renal ] system(s) required my full and direct attention, intervention and personal management. The aggregate critical care time was [32] minutes without overlap. Time includes spent on; [x] Data Review and interpretation [x] Patient assessment and monitoring of vital signs [x] Documentation [x] Medication orders and management Subjective Date of service: 08/09/20 Principal diagnosis: Ac hypoxemic resp failure; COVID-19; pneumonia; CHF; Pulm HTN; OHS; DM II Interval history: Patient is seen today for: Ac hypoxemic resp failure s/p Cardiopulmonary arrest with ROSC; Coronavirus-19 infection; pneumonia; Pulmonary edema; Bilateral pleural effusions; CHF; Morbid obesity; pulmonary hypertension; OHS; DM II Seen and examined at bedside; 24hour events reviewed; nursing and respiratory care staff consulted; Vitals, labs,medications, chart reviewed. Remains on MVS, no fevers, Mental status changes persist,[place], did not tolerate PSV trials this morning, had desaturations with low spontaneous tidal volumes Tolerating tube feedings, HD per Renal Objective Vital Signs - 12hr 08/09/20 08/09/20 08/09/20 02:45 03:01 03:15 Temperature Pulse Rate 74 74 73 Pulse Rate [ From Monitor] Respiratory 19 13 18 Rate Blood Pressure 113/49 112/49 112/49 O2 Sat by Pulse 98 98 98 Oximetry 08/09/20 08/09/20 08/09/20 03:31 03:45 04:00 Temperature 99.3 F Pulse Rate 75 73 75 Pulse Rate [ 71 From Monitor] Respiratory 11 L 14 18 Rate Blood Pressure 112/49 112/49 112/49 O2 Sat by Pulse 98 98 98 Oximetry 08/09/20 08/09/20 08/09/20 04:01 04:15 04:31 Temperature Pulse Rate 74 74 74 Pulse Rate [ From Monitor] Respiratory 18 19 Rate Blood Pressure 127/43 127/43 127/43 O2 Sat by Pulse 98 98 98 Oximetry 08/09/20 08/09/20 08/09/20 04:45 05:01 05:15 Temperature Pulse Rate 74 73 73 Pulse Rate [ From Monitor] Respiratory 20 17 18 Rate Blood Pressure 127/43 122/41 122/41 O2 Sat by Pulse 98 99 98 Oximetry 08/09/20 08/09/20 08/09/20 05:31 05:45 06:01 Temperature Pulse Rate 76 72 72 Pulse Rate [ From Monitor] Respiratory 9 L 14 17 Rate Blood Pressure 122/41 122/41 121/46 O2 Sat by Pulse 98 98 99 Oximetry 08/09/20 08/09/20 08/09/20 06:15 06:31 06:45 Temperature Pulse Rate 72 75 71 Pulse Rate [ From Monitor] Respiratory 17 12 17 Rate Blood Pressure 121/46 121/46 121/46 O2 Sat by Pulse 99 98 98 Oximetry 08/09/20 08/09/20 08/09/20 07:01 07:15 07:31 Temperature Pulse Rate 69 70 71 Pulse Rate [ From Monitor] Respiratory 17 13 15 Rate Blood Pressure 114/45 114/45 114/45 O2 Sat by Pulse 99 99 98 Oximetry 08/09/20 08/09/20 08/09/20 07:45 08:00 08:01 Temperature 99.5 F Pulse Rate 72 76 76 Pulse Rate [ From Monitor] Respiratory 18 16 Rate Blood Pressure 114/45 130/70 O2 Sat by Pulse 97 9 L 98 Oximetry 08/09/20 08/09/20 08/09/20 08:15 08:30 08:31 Temperature Pulse Rate 74 72 74 Pulse Rate [ From Monitor] Respiratory 16 16 Rate Blood Pressure 130/70 130/70 130/70 O2 Sat by Pulse 98 99 99 Oximetry 08/09/20 08/09/20 08/09/20 08:45 09:01 09:15 Temperature Pulse Rate 70 72 72 Pulse Rate [ From Monitor] Respiratory 17 17 12 Rate Blood Pressure 130/70 124/46 124/46 O2 Sat by Pulse 99 99 98 Oximetry 08/09/20 08/09/20 08/09/20 09:31 09:45 10:01 Temperature Pulse Rate 73 71 72 Pulse Rate [ From Monitor] Respiratory 18 7 L 17 Rate Blood Pressure 124/46 124/46 118/43 O2 Sat by Pulse 99 98 99 Oximetry 08/09/20 08/09/20 08/09/20 10:15 10:31 10:45 Temperature Pulse Rate 71 73 73 Pulse Rate [ From Monitor] Respiratory 17 18 18 Rate Blood Pressure 124/46 124/46 124/46 O2 Sat by Pulse 98 99 99 Oximetry 08/09/20 08/09/20 08/09/20 11:01 11:15 11:31 Temperature Pulse Rate 74 73 73 Pulse Rate [ From Monitor] Respiratory 14 19 9 L Rate Blood Pressure 130/48 130/48 130/48 O2 Sat by Pulse 99 99 99 Oximetry 08/09/20 08/09/20 08/09/20 11:45 12:00 12:01 Temperature 98.2 F Pulse Rate 78 79 79 Pulse Rate [ From Monitor] Respiratory 26 H 25 H Rate Blood Pressure 130/48 139/48 O2 Sat by Pulse 97 96 Oximetry 08/09/20 08/09/20 08/09/20 12:10 12:15 12:31 Temperature Pulse Rate 78 78 78 Pulse Rate [ From Monitor] Respiratory 26 H 26 H 27 H Rate Blood Pressure 130/48 139/48 139/48 O2 Sat by Pulse 96 95 93 Oximetry 08/09/20 08/09/20 08/09/20 12:45 13:01 13:15 Temperature Pulse Rate 76 83 75 Pulse Rate [ From Monitor] Respiratory 23 27 H 25 H Rate Blood Pressure 139/48 135/48 135/48 O2 Sat by Pulse 82 L 94 94 Oximetry 08/09/20 08/09/20 08/09/20 13:31 13:45 14:01 Temperature Pulse Rate 78 77 80 Pulse Rate [ From Monitor] Respiratory 22 26 H 25 H Rate Blood Pressure 135/48 135/48 132/46 O2 Sat by Pulse 95 96 97 Oximetry 08/09/20 08/09/20 14:15 14:31 Temperature Pulse Rate 80 80 Pulse Rate [ From Monitor] Respiratory 22 27 H Rate Blood Pressure 132/46 132/46 O2 Sat by Pulse 96 96 Oximetry Constitutional: appears uncomfortable, other (elderly looking female with mildly increased resp effort at rest) Eyes: non-icteric ENT: oropharynx dry, other (ETT 23-24 cm AYAN) Neck: supple, no lymphadenopathy, no JVD Effort: mildly labored Ascultation: Bilateral: clear, diminished breath sounds, rales, rhonchi Percussion: Bilateral: not dull Cardiovascular: regular rate and rhythm, other (S1,S2) Gastrointestinal: normoactive bowel sounds, soft, non-tender, non-distended Integumentary: rash, other (Right femoral trialysis catheter) Extremities: no cyanosis, pink and warm, pulses normal, no ischemia or petechiae, edema (pedal and peripheral ), anasarca Neurologic: unable to assess, other (lethargic to obtunded) Psychiatric: other (unable to assess re: AMS) CBC and BMP: 08/11/20 03:55 08/14/20 04:50 ABG, PT/INR, D-dimer: ABG ABG pH 7.344 pH Units (7.350-7.450) L 08/02/20 11:25 POC ABG pCO2 44.1 mmHg (32.0-48.0) 07/18/20 04:24 ABG pCO2 39.0 mm Hg 08/02/20 11:25 POC ABG pO2 86.8 mmHg (83-108) 07/18/20 04:24 ABG pO2 101.1 mm Hg (80.0-90.0) H 08/02/20 11:25 POC ABG HCO3 25.6 07/18/20 04:24 ABG O2 Saturation 97.5 % (95.0-99.0) 08/02/20 11:25 PT/INR, D-dimer PT 14.2 Sec. (12.2-14.9) 05/29/20 15:10 INR 1.08 (0.87-1.13) 05/29/20 15:10 D-Dimer 2310.15 ng/mlDDU (0-234) H 06/29/20 14:45 Abnormal lab findings: Abnormal Labs 05/28/20 05/28/20 05/28/20 13:29 13:47 13:47 WBC RBC Hgb Hct MCHC RDW 15.3 H Lymph % (Auto) [place] % (Auto) Eos % (Auto) Lymph # [place] # Lymph # (Auto) [place] # (Auto) Eos # (Auto) Seg Neutrophils % Seg Neuts % (Manual) Lymphocytes % (Manual) Seg Neutrophils # Seg Neutrophils # Man Lymphocytes # (Manual) Monocytes % (Manual) Eosinophils % (Manual) Monocytes # (Manual) Eosinophils # (Manual) D-Dimer Heparin Anti-Xa Level ABG pH POC ABG pCO2 POC ABG pO2 ABG pO2 ABG HCO3 ABG O2 Saturation ABG Base Excess ABG Hemoglobin ABG Oxyhemoglobin VBG pH ABG Sodium ABG Potassium ABG Glucose Oxyhemoglobin Sodium Potassium 6.6 H* Chloride 109.2 H Carbon Dioxide 17 L BUN 29 H Creatinine 1.3 H Glucose 265 H POC Glucose 248 H Lactic Acid Calcium 8.1 L Ferritin AST 63 H Alkaline Phosphatase Magnesium Lactate Dehydrogenase Total Creatine Kinase 301 H CK-MB (CK-2) 4.3 H C-Reactive Protein Total Protein 5.4 L Albumin 2.6 L Troponin T HDL Cholesterol Arterial Blood Glucose Urine WBC (Auto) Urine Creatinine Urine Total Protein Phenytoin Coronavirus (PCR) Crossmatch 05/28/20 05/28/20 05/28/20 13:47 13:47 14:46 WBC RBC Hgb Hct MCHC RDW Lymph % (Auto) [place] % (Auto) Eos % (Auto) Lymph # [place] # Lymph # (Auto) [place] # (Auto) Eos # (Auto) Seg Neutrophils % Seg Neuts % (Manual) Lymphocytes % (Manual) Seg Neutrophils # Seg Neutrophils # Man Lymphocytes # (Manual) Monocytes % (Manual) Eosinophils % (Manual) Monocytes # (Manual) Eosinophils # (Manual) D-Dimer Heparin Anti-Xa Level ABG pH POC ABG pCO2 POC ABG pO2 ABG pO2 ABG HCO3 ABG O2 Saturation ABG Base Excess ABG Hemoglobin ABG Oxyhemoglobin VBG pH 7.152 L* ABG Sodium ABG Potassium ABG Glucose Oxyhemoglobin Sodium Potassium 7.2 H* Chloride Carbon Dioxide BUN Creatinine Glucose POC Glucose Lactic Acid 3.40 H* Calcium Ferritin AST Alkaline Phosphatase Magnesium Lactate Dehydrogenase Total Creatine Kinase CK-MB (CK-2) C-Reactive Protein Total Protein Albumin Troponin T HDL Cholesterol Arterial Blood Glucose Urine WBC (Auto) Urine Creatinine Urine Total Protein Phenytoin Coronavirus (PCR) Crossmatch 05/28/20 05/28/20 05/28/20 15:33 15:33 15:51 WBC RBC Hgb Hct MCHC RDW Lymph % (Auto) [place] % (Auto) Eos % (Auto) Lymph # [place] # Lymph # (Auto) [place] # (Auto) Eos # (Auto) Seg Neutrophils % Seg Neuts % (Manual) Lymphocytes % (Manual) Seg Neutrophils # Seg Neutrophils # Man Lymphocytes # (Manual) Monocytes % (Manual) Eosinophils % (Manual) Monocytes # (Manual) Eosinophils # (Manual) D-Dimer 8780.43 H Heparin Anti-Xa Level ABG pH 7.284 L POC ABG pCO2 POC ABG pO2 ABG pO2 273.0 H ABG HCO3 ABG O2 Saturation 99.4 H ABG Base Excess -6.1 L ABG Hemoglobin 17.2 H ABG Oxyhemoglobin VBG pH ABG Sodium ABG Potassium ABG Glucose Oxyhemoglobin Sodium Potassium Chloride Carbon Dioxide BUN Creatinine Glucose 152 H POC Glucose Lactic Acid Calcium Ferritin AST Alkaline Phosphatase Magnesium Lactate Dehydrogenase 365 H Total Creatine Kinase CK-MB (CK-2) C-Reactive Protein Total Protein Albumin Troponin T HDL Cholesterol Arterial Blood Glucose Urine WBC (Auto) Urine Creatinine Urine Total Protein Phenytoin Coronavirus (PCR) Crossmatch 05/28/20 05/28/20 05/28/20 16:30 20:41 23:20 WBC RBC Hgb Hct MCHC RDW Lymph % (Auto) [place] % (Auto) Eos % (Auto) Lymph # [place] # Lymph # (Auto) [place] # (Auto) Eos # (Auto) Seg Neutrophils % Seg Neuts % (Manual) Lymphocytes % (Manual) Seg Neutrophils # Seg Neutrophils # Man Lymphocytes # (Manual) Monocytes % (Manual) Eosinophils % (Manual) Monocytes # (Manual) Eosinophils # (Manual) D-Dimer Heparin Anti-Xa Level ABG pH POC ABG pCO2 POC ABG pO2 ABG pO2 ABG HCO3 ABG O2 Saturation ABG Base Excess ABG Hemoglobin ABG Oxyhemoglobin VBG pH ABG Sodium ABG Potassium ABG Glucose Oxyhemoglobin Sodium Potassium Chloride Carbon Dioxide BUN Creatinine Glucose POC Glucose 225 H 224 H Lactic Acid Calcium Ferritin AST Alkaline Phosphatase Magnesium Lactate Dehydrogenase Total Creatine Kinase CK-MB (CK-2) C-Reactive Protein Total Protein Albumin Troponin T HDL Cholesterol Arterial Blood Glucose Urine WBC (Auto) 17.0 H Urine Creatinine Urine Total Protein Phenytoin Coronavirus (PCR) Crossmatch 05/28/20 05/29/20 05/29/20 Unknown 04:35 04:43 WBC RBC 3.48 L Hgb 9.8 L Hct 29.4 L MCHC RDW 16.0 H Lymph % (Auto) 7.4 L [place] % (Auto) Eos % (Auto) Lymph # 0.7 L [place] # Lymph # (Auto) [place] # (Auto) Eos # (Auto) Seg Neutrophils % 89.1 H Seg Neuts % (Manual) Lymphocytes % (Manual) Seg Neutrophils # 8.1 H Seg Neutrophils # Man Lymphocytes # (Manual) Monocytes % (Manual) Eosinophils % (Manual) Monocytes # (Manual) Eosinophils # (Manual) D-Dimer Heparin Anti-Xa Level ABG pH POC ABG pCO2 POC ABG pO2 ABG pO2 ABG HCO3 19.3 L ABG O2 Saturation ABG Base Excess -4.5 L ABG Hemoglobin 9.7 L ABG Oxyhemoglobin VBG pH ABG Sodium ABG Potassium ABG Glucose Oxyhemoglobin Sodium Potassium Chloride Carbon Dioxide BUN Creatinine Glucose POC Glucose Lactic Acid Calcium Ferritin AST Alkaline Phosphatase Magnesium Lactate Dehydrogenase Total Creatine Kinase CK-MB (CK-2) C-Reactive Protein Total Protein Albumin Troponin T HDL Cholesterol Arterial Blood Glucose Urine WBC (Auto) Urine Creatinine Urine Total Protein Phenytoin Coronavirus (PCR) Positive A Crossmatch 05/29/20 05/29/20 05/29/20 04:43 15:10 17:17 WBC RBC Hgb 9.3 L Hct 28.7 L MCHC RDW Lymph % (Auto) [place] % (Auto) Eos % (Auto) Lymph # [place] # Lymph # (Auto) [place] # (Auto) Eos # (Auto) Seg Neutrophils % Seg Neuts % (Manual) Lymphocytes % (Manual) Seg Neutrophils # Seg Neutrophils # Man Lymphocytes # (Manual) Monocytes % (Manual) Eosinophils % (Manual) Monocytes # (Manual) Eosinophils # (Manual) D-Dimer Heparin Anti-Xa Level ABG pH POC ABG pCO2 POC ABG pO2 ABG pO2 ABG HCO3 ABG O2 Saturation ABG Base Excess ABG Hemoglobin ABG Oxyhemoglobin VBG pH ABG Sodium ABG Potassium ABG Glucose Oxyhemoglobin Sodium Potassium Chloride 110.2 H Carbon Dioxide 18 L BUN 32 H Creatinine 1.4 H Glucose 180 H POC Glucose 147 H Lactic Acid Calcium Ferritin AST Alkaline Phosphatase Magnesium Lactate Dehydrogenase Total Creatine Kinase CK-MB (CK-2) C-Reactive Protein Total Protein Albumin Troponin T HDL Cholesterol Arterial Blood Glucose Urine WBC (Auto) Urine Creatinine Urine Total Protein Phenytoin Coronavirus (PCR) Crossmatch 05/30/20 05/30/20 05/30/20 00:08 00:12 04:15 WBC RBC Hgb Hct MCHC RDW Lymph % (Auto) [place] % (Auto) Eos % (Auto) Lymph # [place] # Lymph # (Auto) [place] # (Auto) Eos # (Auto) Seg Neutrophils % Seg Neuts % (Manual) Lymphocytes % (Manual) Seg Neutrophils # Seg Neutrophils # Man Lymphocytes # (Manual) Monocytes % (Manual) Eosinophils % (Manual) Monocytes # (Manual) Eosinophils # (Manual) D-Dimer Heparin Anti-Xa Level 0.71 H ABG pH 7.460 H POC ABG pCO2 POC ABG pO2 ABG pO2 106.0 H ABG HCO3 18.9 L ABG O2 Saturation ABG Base Excess -4.4 L ABG Hemoglobin 6.8 L ABG Oxyhemoglobin VBG pH ABG Sodium ABG Potassium ABG Glucose Oxyhemoglobin Sodium Potassium Chloride Carbon Dioxide BUN Creatinine Glucose POC Glucose 195 H Lactic Acid Calcium Ferritin AST Alkaline Phosphatase Magnesium Lactate Dehydrogenase Total Creatine Kinase CK-MB (CK-2) C-Reactive Protein Total Protein Albumin Troponin T HDL Cholesterol Arterial Blood Glucose Urine WBC (Auto) Urine Creatinine Urine Total Protein Phenytoin Coronavirus (PCR) Crossmatch 05/30/20 05/30/20 05/30/20 06:07 08:37 12:33 WBC RBC Hgb Hct MCHC RDW Lymph % (Auto) [place] % (Auto) Eos % (Auto) Lymph # [place] # Lymph # (Auto) [place] # (Auto) Eos # (Auto) Seg Neutrophils % Seg Neuts % (Manual) Lymphocytes % (Manual) Seg Neutrophils # Seg Neutrophils # Man Lymphocytes # (Manual) Monocytes % (Manual) Eosinophils % (Manual) Monocytes # (Manual) Eosinophils # (Manual) D-Dimer Heparin Anti-Xa Level 0.85 H ABG pH POC ABG pCO2 POC ABG pO2 ABG pO2 ABG HCO3 ABG O2 Saturation ABG Base Excess ABG Hemoglobin ABG Oxyhemoglobin VBG pH ABG Sodium ABG Potassium ABG Glucose Oxyhemoglobin Sodium Potassium Chloride Carbon Dioxide BUN Creatinine Glucose POC Glucose 182 H 187 H Lactic Acid Calcium Ferritin AST Alkaline Phosphatase Magnesium Lactate Dehydrogenase Total Creatine Kinase CK-MB (CK-2) C-Reactive Protein Total Protein Albumin Troponin T HDL Cholesterol Arterial Blood Glucose Urine WBC (Auto) Urine Creatinine Urine Total Protein Phenytoin Coronavirus (PCR) Crossmatch 05/30/20 05/30/20 05/30/20 15:58 17:57 23:36 WBC RBC Hgb Hct MCHC RDW Lymph % (Auto) [place] % (Auto) Eos % (Auto) Lymph # [place] # Lymph # (Auto) [place] # (Auto) Eos # (Auto) Seg Neutrophils % Seg Neuts % (Manual) Lymphocytes % (Manual) Seg Neutrophils # Seg Neutrophils # Man Lymphocytes # (Manual) Monocytes % (Manual) Eosinophils % (Manual) Monocytes # (Manual) Eosinophils # (Manual) D-Dimer Heparin Anti-Xa Level 1.03 H ABG pH POC ABG pCO2 POC ABG pO2 ABG pO2 ABG HCO3 ABG O2 Saturation ABG Base Excess ABG Hemoglobin ABG Oxyhemoglobin VBG pH ABG Sodium ABG Potassium ABG Glucose Oxyhemoglobin Sodium Potassium Chloride Carbon Dioxide BUN Creatinine Glucose POC Glucose 208 H 185 H Lactic Acid Calcium Ferritin AST Alkaline Phosphatase Magnesium Lactate Dehydrogenase Total Creatine Kinase CK-MB (CK-2) C-Reactive Protein Total Protein Albumin Troponin T HDL Cholesterol Arterial Blood Glucose Urine WBC (Auto) Urine Creatinine Urine Total Protein Phenytoin Coronavirus (PCR) Crossmatch 05/31/20 05/31/20 05/31/20 02:16 03:55 06:16 WBC RBC Hgb 9.2 L Hct 27.5 L MCHC RDW Lymph % (Auto) [place] % (Auto) Eos % (Auto) Lymph # [place] # Lymph # (Auto) [place] # (Auto) Eos # (Auto) Seg Neutrophils % Seg Neuts % (Manual) Lymphocytes % (Manual) Seg Neutrophils # Seg Neutrophils # Man Lymphocytes # (Manual) Monocytes % (Manual) Eosinophils % (Manual) Monocytes # (Manual) Eosinophils # (Manual) D-Dimer Heparin Anti-Xa Level ABG pH POC ABG pCO2 POC ABG pO2 ABG pO2 94.7 H ABG HCO3 18.6 L ABG O2 Saturation ABG Base Excess -5.5 L ABG Hemoglobin 7.9 L ABG Oxyhemoglobin VBG pH ABG Sodium ABG Potassium ABG Glucose Oxyhemoglobin Sodium Potassium Chloride Carbon Dioxide BUN Creatinine Glucose POC Glucose 160 H Lactic Acid Calcium Ferritin AST Alkaline Phosphatase Magnesium Lactate Dehydrogenase Total Creatine Kinase CK-MB (CK-2) C-Reactive Protein Total Protein Albumin Troponin T HDL Cholesterol Arterial Blood Glucose Urine WBC (Auto) Urine Creatinine Urine Total Protein Phenytoin Coronavirus (PCR) Crossmatch 05/31/20 05/31/20 05/31/20 12:20 13:03 18:13 WBC RBC Hgb Hct MCHC RDW Lymph % (Auto) [place] % (Auto) Eos % (Auto) Lymph # [place] # Lymph # (Auto) [place] # (Auto) Eos # (Auto) Seg Neutrophils % Seg Neuts % (Manual) Lymphocytes % (Manual) Seg Neutrophils # Seg Neutrophils # Man Lymphocytes # (Manual) Monocytes % (Manual) Eosinophils % (Manual) Monocytes # (Manual) Eosinophils # (Manual) D-Dimer Heparin Anti-Xa Level ABG pH POC ABG pCO2 POC ABG pO2 ABG pO2 ABG HCO3 ABG O2 Saturation ABG Base Excess ABG Hemoglobin ABG Oxyhemoglobin VBG pH ABG Sodium ABG Potassium ABG Glucose Oxyhemoglobin Sodium Potassium Chloride Carbon Dioxide 18 L BUN 48 H Creatinine 1.6 H Glucose 115 H POC Glucose 128 H 159 H Lactic Acid Calcium 8.3 L Ferritin AST Alkaline Phosphatase Magnesium Lactate Dehydrogenase Total Creatine Kinase CK-MB (CK-2) C-Reactive Protein Total Protein 5.4 L Albumin 2.4 L Troponin T HDL Cholesterol Arterial Blood Glucose Urine WBC (Auto) Urine Creatinine Urine Total Protein Phenytoin Coronavirus (PCR) Crossmatch 05/31/20 06/01/20 06/01/20 23:51 04:00 05:48 WBC RBC Hgb Hct MCHC RDW Lymph % (Auto) [place] % (Auto) Eos % (Auto) Lymph # [place] # Lymph # (Auto) [place] # (Auto) Eos # (Auto) Seg Neutrophils % Seg Neuts % (Manual) Lymphocytes % (Manual) Seg Neutrophils # Seg Neutrophils # Man Lymphocytes # (Manual) Monocytes % (Manual) Eosinophils % (Manual) Monocytes # (Manual) Eosinophils # (Manual) D-Dimer Heparin Anti-Xa Level ABG pH POC ABG pCO2 POC ABG pO2 ABG pO2 109.8 H ABG HCO3 18.8 L ABG O2 Saturation ABG Base Excess -5.9 L ABG Hemoglobin 7.8 L ABG Oxyhemoglobin VBG pH ABG Sodium ABG Potassium ABG Glucose Oxyhemoglobin Sodium Potassium Chloride Carbon Dioxide BUN Creatinine Glucose POC Glucose 171 H 133 H Lactic Acid Calcium Ferritin AST Alkaline Phosphatase Magnesium Lactate Dehydrogenase Total Creatine Kinase CK-MB (CK-2) C-Reactive Protein Total Protein Albumin Troponin T HDL Cholesterol Arterial Blood Glucose Urine WBC (Auto) Urine Creatinine Urine Total Protein Phenytoin Coronavirus (PCR) Crossmatch 06/01/20 06/01/20 06/02/20 12:28 17:29 00:08 WBC RBC Hgb Hct MCHC RDW Lymph % (Auto) [place] % (Auto) Eos % (Auto) Lymph # [place] # Lymph # (Auto) [place] # (Auto) Eos # (Auto) Seg Neutrophils % Seg Neuts % (Manual) Lymphocytes % (Manual) Seg Neutrophils # Seg Neutrophils # Man Lymphocytes # (Manual) Monocytes % (Manual) Eosinophils % (Manual) Monocytes # (Manual) Eosinophils # (Manual) D-Dimer Heparin Anti-Xa Level ABG pH POC ABG pCO2 POC ABG pO2 ABG pO2 ABG HCO3 ABG O2 Saturation ABG Base Excess ABG Hemoglobin ABG Oxyhemoglobin VBG pH ABG Sodium ABG Potassium ABG Glucose Oxyhemoglobin Sodium Potassium Chloride Carbon Dioxide BUN Creatinine Glucose POC Glucose 199 H 209 H 162 H Lactic Acid Calcium Ferritin AST Alkaline Phosphatase Magnesium Lactate Dehydrogenase Total Creatine Kinase CK-MB (CK-2) C-Reactive Protein Total Protein Albumin Troponin T HDL Cholesterol Arterial Blood Glucose Urine WBC (Auto) Urine Creatinine Urine Total Protein Phenytoin Coronavirus (PCR) Crossmatch 06/02/20 06/02/20 06/02/20 04:20 04:20 04:44 WBC RBC Hgb 10.0 L Hct MCHC RDW Lymph % (Auto) [place] % (Auto) Eos % (Auto) Lymph # [place] # Lymph # (Auto) [place] # (Auto) Eos # (Auto) Seg Neutrophils % Seg Neuts % (Manual) Lymphocytes % (Manual) Seg Neutrophils # Seg Neutrophils # Man Lymphocytes # (Manual) Monocytes % (Manual) Eosinophils % (Manual) Monocytes # (Manual) Eosinophils # (Manual) D-Dimer Heparin Anti-Xa Level 0.10 L ABG pH POC ABG pCO2 POC ABG pO2 ABG pO2 150.6 H ABG HCO3 ABG O2 Saturation ABG Base Excess -4.1 L ABG Hemoglobin 11.8 L ABG Oxyhemoglobin VBG pH ABG Sodium ABG Potassium ABG Glucose Oxyhemoglobin Sodium Potassium Chloride Carbon Dioxide BUN Creatinine Glucose POC Glucose Lactic Acid Calcium Ferritin AST Alkaline Phosphatase Magnesium Lactate Dehydrogenase Total Creatine Kinase CK-MB (CK-2) C-Reactive Protein Total Protein Albumin Troponin T HDL Cholesterol Arterial Blood Glucose Urine WBC (Auto) Urine Creatinine Urine Total Protein Phenytoin Coronavirus (PCR) Crossmatch 06/02/20 06/02/20 06/02/20 05:53 12:04 13:49 WBC RBC Hgb Hct MCHC RDW Lymph % (Auto) [place] % (Auto) Eos % (Auto) Lymph # [place] # Lymph # (Auto) [place] # (Auto) Eos # (Auto) Seg Neutrophils % Seg Neuts % (Manual) Lymphocytes % (Manual) Seg Neutrophils # Seg Neutrophils # Man Lymphocytes # (Manual) Monocytes % (Manual) Eosinophils % (Manual) Monocytes # (Manual) Eosinophils # (Manual) D-Dimer Heparin Anti-Xa Level 0.28 L ABG pH POC ABG pCO2 POC ABG pO2 ABG pO2 ABG HCO3 ABG O2 Saturation ABG Base Excess ABG Hemoglobin ABG Oxyhemoglobin VBG pH ABG Sodium ABG Potassium ABG Glucose Oxyhemoglobin Sodium Potassium Chloride Carbon Dioxide BUN Creatinine Glucose POC Glucose 149 H 220 H Lactic Acid Calcium Ferritin AST Alkaline Phosphatase Magnesium Lactate Dehydrogenase Total Creatine Kinase CK-MB (CK-2) C-Reactive Protein Total Protein Albumin Troponin T HDL Cholesterol Arterial Blood Glucose Urine WBC (Auto) Urine Creatinine Urine Total Protein Phenytoin Coronavirus (PCR) Crossmatch 06/02/20 06/02/20 06/03/20 13:49 18:31 00:42 WBC RBC Hgb Hct MCHC RDW Lymph % (Auto) [place] % (Auto) Eos % (Auto) Lymph # [place] # Lymph # (Auto) [place] # (Auto) Eos # (Auto) Seg Neutrophils % Seg Neuts % (Manual) Lymphocytes % (Manual) Seg Neutrophils # Seg Neutrophils # Man Lymphocytes # (Manual) Monocytes % (Manual) Eosinophils % (Manual) Monocytes # (Manual) Eosinophils # (Manual) D-Dimer 769.68 H Heparin Anti-Xa Level ABG pH POC ABG pCO2 POC ABG pO2 ABG pO2 ABG HCO3 ABG O2 Saturation ABG Base Excess ABG Hemoglobin ABG Oxyhemoglobin VBG pH ABG Sodium ABG Potassium ABG Glucose Oxyhemoglobin Sodium Potassium Chloride Carbon Dioxide BUN Creatinine Glucose POC Glucose 225 H 212 H Lactic Acid Calcium Ferritin AST Alkaline Phosphatase Magnesium Lactate Dehydrogenase Total Creatine Kinase CK-MB (CK-2) C-Reactive Protein Total Protein Albumin Troponin T HDL Cholesterol Arterial Blood Glucose Urine WBC (Auto) Urine Creatinine Urine Total Protein Phenytoin Coronavirus (PCR) Crossmatch 06/03/20 06/03/20 06/03/20 05:16 05:16 05:25 WBC 11.4 H RBC Hgb Hct MCHC RDW 16.4 H Lymph % (Auto) [place] % (Auto) Eos % (Auto) Lymph # [place] # Lymph # (Auto) [place] # (Auto) Eos # (Auto) Seg Neutrophils % Seg Neuts % (Manual) Lymphocytes % (Manual) Seg Neutrophils # Seg Neutrophils # Man Lymphocytes # (Manual) Monocytes % (Manual) Eosinophils % (Manual) Monocytes # (Manual) Eosinophils # (Manual) D-Dimer Heparin Anti-Xa Level ABG pH POC ABG pCO2 POC ABG pO2 ABG pO2 160.9 H ABG HCO3 19.4 L ABG O2 Saturation ABG Base Excess -4.9 L ABG Hemoglobin 7.0 L ABG Oxyhemoglobin VBG pH ABG Sodium ABG Potassium ABG Glucose Oxyhemoglobin Sodium Potassium Chloride Carbon Dioxide 18 L BUN 65 H Creatinine 2.0 H Glucose 175 H POC Glucose Lactic Acid Calcium 8.0 L Ferritin AST Alkaline Phosphatase Magnesium Lactate Dehydrogenase Total Creatine Kinase CK-MB (CK-2) C-Reactive Protein Total Protein 5.5 L Albumin 2.2 L Troponin T HDL Cholesterol Arterial Blood Glucose Urine WBC (Auto) Urine Creatinine Urine Total Protein Phenytoin Coronavirus (PCR) Crossmatch 06/03/20 06/03/20 06/03/20 06:07 11:58 18:24 WBC RBC Hgb Hct MCHC RDW Lymph % (Auto) [place] % (Auto) Eos % (Auto) Lymph # [place] # Lymph # (Auto) [place] # (Auto) Eos # (Auto) Seg Neutrophils % Seg Neuts % (Manual) Lymphocytes % (Manual) Seg Neutrophils # Seg Neutrophils # Man Lymphocytes # (Manual) Monocytes % (Manual) Eosinophils % (Manual) Monocytes # (Manual) Eosinophils # (Manual) D-Dimer Heparin Anti-Xa Level ABG pH POC ABG pCO2 POC ABG pO2 ABG pO2 ABG HCO3 ABG O2 Saturation ABG Base Excess ABG Hemoglobin ABG Oxyhemoglobin VBG pH ABG Sodium ABG Potassium ABG Glucose Oxyhemoglobin Sodium Potassium Chloride Carbon Dioxide BUN Creatinine Glucose POC Glucose 177 H 163 H 211 H Lactic Acid Calcium Ferritin AST Alkaline Phosphatase Magnesium Lactate Dehydrogenase Total Creatine Kinase CK-MB (CK-2) C-Reactive Protein Total Protein Albumin Troponin T HDL Cholesterol Arterial Blood Glucose Urine WBC (Auto) Urine Creatinine Urine Total Protein Phenytoin Coronavirus (PCR) Crossmatch 06/03/20 06/03/20 06/04/20 21:50 Unknown 00:26 WBC RBC Hgb Hct MCHC RDW Lymph % (Auto) [place] % (Auto) Eos % (Auto) Lymph # [place] # Lymph # (Auto) [place] # (Auto) Eos # (Auto) Seg Neutrophils % Seg Neuts % (Manual) Lymphocytes % (Manual) Seg Neutrophils # Seg Neutrophils # Man Lymphocytes # (Manual) Monocytes % (Manual) Eosinophils % (Manual) Monocytes # (Manual) Eosinophils # (Manual) D-Dimer Heparin Anti-Xa Level ABG pH POC ABG pCO2 POC ABG pO2 ABG pO2 ABG HCO3 ABG O2 Saturation ABG Base Excess ABG Hemoglobin ABG Oxyhemoglobin VBG pH ABG Sodium ABG Potassium ABG Glucose Oxyhemoglobin Sodium 135 L Potassium Chloride Carbon Dioxide 18 L BUN Creatinine Glucose POC Glucose 241 H Lactic Acid Calcium Ferritin AST Alkaline Phosphatase Magnesium Lactate Dehydrogenase Total Creatine Kinase CK-MB (CK-2) C-Reactive Protein Total Protein Albumin Troponin T HDL Cholesterol Arterial Blood Glucose Urine WBC (Auto) 11.0 H Urine Creatinine Urine Total Protein Phenytoin Coronavirus (PCR) Crossmatch 06/04/20 06/04/20 06/04/20 03:35 04:19 04:19 WBC RBC 3.15 L Hgb 8.9 L Hct 26.8 L D MCHC RDW 15.9 H Lymph % (Auto) 6.0 L [place] % (Auto) Eos % (Auto) Lymph # 0.6 L [place] # Lymph # (Auto) [place] # (Auto) Eos # (Auto) Seg Neutrophils % 86.6 H Seg Neuts % (Manual) Lymphocytes % (Manual) Seg Neutrophils # 9.1 H Seg Neutrophils # Man Lymphocytes # (Manual) Monocytes % (Manual) Eosinophils % (Manual) Monocytes # (Manual) Eosinophils # (Manual) D-Dimer Heparin Anti-Xa Level ABG pH 7.331 L POC ABG pCO2 POC ABG pO2 ABG pO2 ABG HCO3 ABG O2 Saturation ABG Base Excess -4.7 L ABG Hemoglobin 11.0 L ABG Oxyhemoglobin VBG pH ABG Sodium ABG Potassium ABG Glucose Oxyhemoglobin 93.9 L Sodium 136 L Potassium Chloride Carbon Dioxide 20 L BUN 73 H Creatinine 2.0 H Glucose 192 H POC Glucose Lactic Acid Calcium 8.0 L Ferritin AST Alkaline Phosphatase Magnesium Lactate Dehydrogenase 271 H Total Creatine Kinase CK-MB (CK-2) C-Reactive Protein 2.20 H Total Protein 5.0 L Albumin 2.0 L Troponin T HDL Cholesterol Arterial Blood Glucose Urine WBC (Auto) Urine Creatinine Urine Total Protein Phenytoin Coronavirus (PCR) Crossmatch 06/04/20 06/04/20 06/04/20 04:19 05:51 11:48 WBC RBC Hgb Hct MCHC RDW Lymph % (Auto) [place] % (Auto) Eos % (Auto) Lymph # [place] # Lymph # (Auto) [place] # (Auto) Eos # (Auto) Seg Neutrophils % Seg Neuts % (Manual) Lymphocytes % (Manual) Seg Neutrophils # Seg Neutrophils # Man Lymphocytes # (Manual) Monocytes % (Manual) Eosinophils % (Manual) Monocytes # (Manual) Eosinophils # (Manual) D-Dimer 414.52 H Heparin Anti-Xa Level ABG pH POC ABG pCO2 POC ABG pO2 ABG pO2 ABG HCO3 ABG O2 Saturation ABG Base Excess ABG Hemoglobin ABG Oxyhemoglobin VBG pH ABG Sodium ABG Potassium ABG Glucose Oxyhemoglobin Sodium Potassium Chloride Carbon Dioxide BUN Creatinine Glucose POC Glucose 179 H 213 H Lactic Acid Calcium Ferritin AST Alkaline Phosphatase Magnesium Lactate Dehydrogenase Total Creatine Kinase CK-MB (CK-2) C-Reactive Protein Total Protein Albumin Troponin T HDL Cholesterol Arterial Blood Glucose Urine WBC (Auto) Urine Creatinine Urine Total Protein Phenytoin Coronavirus (PCR) Crossmatch 06/04/20 06/05/20 06/05/20 18:25 00:16 05:00 WBC RBC Hgb Hct MCHC RDW Lymph % (Auto) [place] % (Auto) Eos % (Auto) Lymph # [place] # Lymph # (Auto) [place] # (Auto) Eos # (Auto) Seg Neutrophils % Seg Neuts % (Manual) Lymphocytes % (Manual) Seg Neutrophils # Seg Neutrophils # Man Lymphocytes # (Manual) Monocytes % (Manual) Eosinophils % (Manual) Monocytes # (Manual) Eosinophils # (Manual) D-Dimer Heparin Anti-Xa Level ABG pH 7.286 L POC ABG pCO2 POC ABG pO2 ABG pO2 96.2 H ABG HCO3 ABG O2 Saturation ABG Base Excess -6.3 L ABG Hemoglobin 8.8 L ABG Oxyhemoglobin VBG pH ABG Sodium ABG Potassium ABG Glucose Oxyhemoglobin 94.8 L Sodium Potassium Chloride Carbon Dioxide BUN Creatinine Glucose POC Glucose 238 H 183 H Lactic Acid Calcium Ferritin AST Alkaline Phosphatase Magnesium Lactate Dehydrogenase Total Creatine Kinase CK-MB (CK-2) C-Reactive Protein Total Protein Albumin Troponin T HDL Cholesterol Arterial Blood Glucose Urine WBC (Auto) Urine Creatinine Urine Total Protein Phenytoin Coronavirus (PCR) Crossmatch 06/05/20 06/05/20 06/05/20 05:39 07:25 07:25 WBC RBC 2.97 L Hgb 8.7 L Hct 25.7 L MCHC RDW 16.0 H Lymph % (Auto) 8.8 L [place] % (Auto) 13.3 H Eos % (Auto) Lymph # 0.8 L [place] # 1.3 H Lymph # (Auto) [place] # (Auto) Eos # (Auto) Seg Neutrophils % 77.3 H Seg Neuts % (Manual) Lymphocytes % (Manual) Seg Neutrophils # Seg Neutrophils # Man Lymphocytes # (Manual) Monocytes % (Manual) Eosinophils % (Manual) Monocytes # (Manual) Eosinophils # (Manual) D-Dimer Heparin Anti-Xa Level ABG pH POC ABG pCO2 POC ABG pO2 ABG pO2 ABG HCO3 ABG O2 Saturation ABG Base Excess ABG Hemoglobin ABG Oxyhemoglobin VBG pH ABG Sodium ABG Potassium ABG Glucose Oxyhemoglobin Sodium 133 L Potassium Chloride Carbon Dioxide 17 L BUN 89 H Creatinine 2.8 H Glucose 176 H POC Glucose 149 H Lactic Acid Calcium 7.7 L Ferritin AST Alkaline Phosphatase Magnesium Lactate Dehydrogenase Total Creatine Kinase CK-MB (CK-2) C-Reactive Protein Total Protein 4.2 L Albumin 1.9 L Troponin T HDL Cholesterol Arterial Blood Glucose Urine WBC (Auto) Urine Creatinine Urine Total Protein Phenytoin Coronavirus (PCR) Crossmatch 06/05/20 06/05/20 06/05/20 07:25 12:05 15:41 WBC RBC Hgb Hct MCHC RDW Lymph % (Auto) [place] % (Auto) Eos % (Auto) Lymph # [place] # Lymph # (Auto) [place] # (Auto) Eos # (Auto) Seg Neutrophils % Seg Neuts % (Manual) Lymphocytes % (Manual) Seg Neutrophils # Seg Neutrophils # Man Lymphocytes # (Manual) Monocytes % (Manual) Eosinophils % (Manual) Monocytes # (Manual) Eosinophils # (Manual) D-Dimer Heparin Anti-Xa Level 0.76 H 0.81 H ABG pH POC ABG pCO2 POC ABG pO2 ABG pO2 ABG HCO3 ABG O2 Saturation ABG Base Excess ABG Hemoglobin ABG Oxyhemoglobin VBG pH ABG Sodium ABG Potassium ABG Glucose Oxyhemoglobin Sodium Potassium Chloride Carbon Dioxide BUN Creatinine Glucose POC Glucose 198 H Lactic Acid Calcium Ferritin AST Alkaline Phosphatase Magnesium Lactate Dehydrogenase Total Creatine Kinase CK-MB (CK-2) C-Reactive Protein Total Protein Albumin Troponin T HDL Cholesterol Arterial Blood Glucose Urine WBC (Auto) Urine Creatinine Urine Total Protein Phenytoin Coronavirus (PCR) Crossmatch 06/05/20 06/05/20 06/06/20 18:08 23:25 04:00 WBC RBC Hgb Hct MCHC RDW Lymph % (Auto) [place] % (Auto) Eos % (Auto) Lymph # [place] # Lymph # (Auto) [place] # (Auto) Eos # (Auto) Seg Neutrophils % Seg Neuts % (Manual) Lymphocytes % (Manual) Seg Neutrophils # Seg Neutrophils # Man Lymphocytes # (Manual) Monocytes % (Manual) Eosinophils % (Manual) Monocytes # (Manual) Eosinophils # (Manual) D-Dimer Heparin Anti-Xa Level ABG pH POC ABG pCO2 POC ABG pO2 ABG pO2 ABG HCO3 ABG O2 Saturation ABG Base Excess ABG Hemoglobin ABG Oxyhemoglobin VBG pH ABG Sodium ABG Potassium ABG Glucose Oxyhemoglobin Sodium Potassium Chloride Carbon Dioxide BUN Creatinine Glucose POC Glucose 223 H 169 H Lactic Acid Calcium Ferritin AST Alkaline Phosphatase Magnesium Lactate Dehydrogenase Total Creatine Kinase CK-MB (CK-2) C-Reactive Protein Total Protein Albumin Troponin T HDL Cholesterol Arterial Blood Glucose Urine WBC (Auto) 15.0 H Urine Creatinine Urine Total Protein Phenytoin Coronavirus (PCR) Crossmatch 06/06/20 06/06/20 06/06/20 04:00 05:33 05:38 WBC RBC 2.97 L Hgb 8.7 L Hct 26.8 L MCHC RDW 16.8 H Lymph % (Auto) [place] % (Auto) Eos % (Auto) Lymph # [place] # Lymph # (Auto) [place] # (Auto) Eos # (Auto) Seg Neutrophils % Seg Neuts % (Manual) Lymphocytes % (Manual) Seg Neutrophils # Seg Neutrophils # Man Lymphocytes # (Manual) Monocytes % (Manual) Eosinophils % (Manual) Monocytes # (Manual) Eosinophils # (Manual) D-Dimer Heparin Anti-Xa Level ABG pH POC ABG pCO2 POC ABG pO2 ABG pO2 ABG HCO3 ABG O2 Saturation ABG Base Excess ABG Hemoglobin ABG Oxyhemoglobin VBG pH ABG Sodium ABG Potassium ABG Glucose Oxyhemoglobin Sodium Potassium Chloride Carbon Dioxide BUN Creatinine Glucose POC Glucose 186 H Lactic Acid Calcium Ferritin AST Alkaline Phosphatase Magnesium Lactate Dehydrogenase Total Creatine Kinase CK-MB (CK-2) C-Reactive Protein Total Protein Albumin Troponin T HDL Cholesterol Arterial Blood Glucose Urine WBC (Auto) Urine Creatinine 82.2 H Urine Total Protein 196 H Phenytoin Coronavirus (PCR) Crossmatch 06/06/20 06/06/20 06/06/20 05:38 12:25 17:03 WBC RBC Hgb Hct MCHC RDW Lymph % (Auto) [place] % (Auto) Eos % (Auto) Lymph # [place] # Lymph # (Auto) [place] # (Auto) Eos # (Auto) Seg Neutrophils % Seg Neuts % (Manual) Lymphocytes % (Manual) Seg Neutrophils # Seg Neutrophils # Man Lymphocytes # (Manual) Monocytes % (Manual) Eosinophils % (Manual) Monocytes # (Manual) Eosinophils # (Manual) D-Dimer Heparin Anti-Xa Level ABG pH POC ABG pCO2 POC ABG pO2 ABG pO2 ABG HCO3 ABG O2 Saturation ABG Base Excess ABG Hemoglobin ABG Oxyhemoglobin VBG pH ABG Sodium ABG Potassium ABG Glucose Oxyhemoglobin Sodium 134 L Potassium 5.2 H Chloride Carbon Dioxide 18 L BUN 97 H Creatinine 2.5 H Glucose 193 H POC Glucose 239 H 252 H Lactic Acid Calcium 7.5 L Ferritin AST Alkaline Phosphatase Magnesium Lactate Dehydrogenase Total Creatine Kinase CK-MB (CK-2) C-Reactive Protein Total Protein 4.1 L Albumin 1.9 L Troponin T HDL Cholesterol Arterial Blood Glucose Urine WBC (Auto) Urine Creatinine Urine Total Protein Phenytoin Coronavirus (PCR) Crossmatch 06/07/20 06/07/20 06/07/20 00:16 01:49 04:00 WBC RBC 2.91 L Hgb 8.4 L Hct 25.0 L MCHC RDW 16.1 H Lymph % (Auto) 5.7 L [place] % (Auto) 10.5 H Eos % (Auto) Lymph # 0.6 L [place] # 1.1 H Lymph # (Auto) [place] # (Auto) Eos # (Auto) Seg Neutrophils % 83.6 H Seg Neuts % (Manual) Lymphocytes % (Manual) Seg Neutrophils # 9.1 H Seg Neutrophils # Man Lymphocytes # (Manual) Monocytes % (Manual) Eosinophils % (Manual) Monocytes # (Manual) Eosinophils # (Manual) D-Dimer Heparin Anti-Xa Level 0.26 L ABG pH POC ABG pCO2 POC ABG pO2 ABG pO2 ABG HCO3 ABG O2 Saturation ABG Base Excess ABG Hemoglobin ABG Oxyhemoglobin VBG pH ABG Sodium ABG Potassium ABG Glucose Oxyhemoglobin Sodium Potassium Chloride Carbon Dioxide BUN Creatinine Glucose POC Glucose 173 H Lactic Acid Calcium Ferritin AST Alkaline Phosphatase Magnesium Lactate Dehydrogenase Total Creatine Kinase CK-MB (CK-2) C-Reactive Protein Total Protein Albumin Troponin T HDL Cholesterol Arterial Blood Glucose Urine WBC (Auto) Urine Creatinine Urine Total Protein Phenytoin Coronavirus (PCR) Crossmatch 06/07/20 06/07/20 06/07/20 04:00 04:54 05:51 WBC RBC Hgb Hct MCHC RDW Lymph % (Auto) [place] % (Auto) Eos % (Auto) Lymph # [place] # Lymph # (Auto) [place] # (Auto) Eos # (Auto) Seg Neutrophils % Seg Neuts % (Manual) Lymphocytes % (Manual) Seg Neutrophils # Seg Neutrophils # Man Lymphocytes # (Manual) Monocytes % (Manual) Eosinophils % (Manual) Monocytes # (Manual) Eosinophils # (Manual) D-Dimer Heparin Anti-Xa Level ABG pH 7.317 L POC ABG pCO2 POC ABG pO2 ABG pO2 71.4 L ABG HCO3 ABG O2 Saturation 94.3 L ABG Base Excess -4.8 L ABG Hemoglobin 7.1 L ABG Oxyhemoglobin VBG pH ABG Sodium ABG Potassium ABG Glucose Oxyhemoglobin 92.2 L Sodium 133 L Potassium Chloride Carbon Dioxide 18 L BUN 100 H Creatinine 2.5 H Glucose 158 H POC Glucose 168 H Lactic Acid Calcium 7.6 L Ferritin AST Alkaline Phosphatase Magnesium Lactate Dehydrogenase Total Creatine Kinase CK-MB (CK-2) C-Reactive Protein Total Protein 4.7 L Albumin 2.0 L Troponin T HDL Cholesterol Arterial Blood Glucose Urine WBC (Auto) Urine Creatinine Urine Total Protein Phenytoin Coronavirus (PCR) Crossmatch 06/07/20 06/07/20 06/07/20 12:03 17:17 20:10 WBC RBC Hgb Hct MCHC RDW Lymph % (Auto) [place] % (Auto) Eos % (Auto) Lymph # [place] # Lymph # (Auto) [place] # (Auto) Eos # (Auto) Seg Neutrophils % Seg Neuts % (Manual) Lymphocytes % (Manual) Seg Neutrophils # Seg Neutrophils # Man Lymphocytes # (Manual) Monocytes % (Manual) Eosinophils % (Manual) Monocytes # (Manual) Eosinophils # (Manual) D-Dimer Heparin Anti-Xa Level 0.17 L ABG pH POC ABG pCO2 POC ABG pO2 ABG pO2 ABG HCO3 ABG O2 Saturation ABG Base Excess ABG Hemoglobin ABG Oxyhemoglobin VBG pH ABG Sodium ABG Potassium ABG Glucose Oxyhemoglobin Sodium Potassium Chloride Carbon Dioxide BUN Creatinine Glucose POC Glucose 276 H 281 H Lactic Acid Calcium Ferritin AST Alkaline Phosphatase Magnesium Lactate Dehydrogenase Total Creatine Kinase CK-MB (CK-2) C-Reactive Protein Total Protein Albumin Troponin T HDL Cholesterol Arterial Blood Glucose Urine WBC (Auto) Urine Creatinine Urine Total Protein Phenytoin Coronavirus (PCR) Crossmatch 06/08/20 06/08/20 06/08/20 00:02 04:47 04:47 WBC 16.4 H RBC 3.07 L Hgb 8.6 L Hct 26.5 L MCHC RDW 16.3 H Lymph % (Auto) [place] % (Auto) Eos % (Auto) Lymph # [place] # Lymph # (Auto) [place] # (Auto) Eos # (Auto) Seg Neutrophils % Seg Neuts % (Manual) 90.0 H Lymphocytes % (Manual) 3.0 L Seg Neutrophils # Seg Neutrophils # Man 14.8 H Lymphocytes # (Manual) 0.5 L Monocytes % (Manual) Eosinophils % (Manual) Monocytes # (Manual) 1.1 H Eosinophils # (Manual) D-Dimer Heparin Anti-Xa Level ABG pH POC ABG pCO2 POC ABG pO2 ABG pO2 ABG HCO3 ABG O2 Saturation ABG Base Excess ABG Hemoglobin ABG Oxyhemoglobin VBG pH ABG Sodium ABG Potassium ABG Glucose Oxyhemoglobin Sodium 129 L Potassium Chloride 95.6 L Carbon Dioxide 17 L BUN 106 H Creatinine 2.5 H Glucose 213 H POC Glucose 242 H Lactic Acid Calcium 7.6 L Ferritin AST Alkaline Phosphatase Magnesium Lactate Dehydrogenase Total Creatine Kinase CK-MB (CK-2) C-Reactive Protein Total Protein 5.0 L Albumin 2.1 L Troponin T HDL Cholesterol Arterial Blood Glucose Urine WBC (Auto) Urine Creatinine Urine Total Protein Phenytoin Coronavirus (PCR) Crossmatch 06/08/20 06/08/20 06/08/20 05:40 11:55 17:54 WBC RBC Hgb Hct MCHC RDW Lymph % (Auto) [place] % (Auto) Eos % (Auto) Lymph # [place] # Lymph # (Auto) [place] # (Auto) Eos # (Auto) Seg Neutrophils % Seg Neuts % (Manual) Lymphocytes % (Manual) Seg Neutrophils # Seg Neutrophils # Man Lymphocytes # (Manual) Monocytes % (Manual) Eosinophils % (Manual) Monocytes # (Manual) Eosinophils # (Manual) D-Dimer Heparin Anti-Xa Level ABG pH POC ABG pCO2 POC ABG pO2 ABG pO2 ABG HCO3 ABG O2 Saturation ABG Base Excess ABG Hemoglobin ABG Oxyhemoglobin VBG pH ABG Sodium ABG Potassium ABG Glucose Oxyhemoglobin Sodium Potassium Chloride Carbon Dioxide BUN Creatinine Glucose POC Glucose 221 H 218 H 163 H Lactic Acid Calcium Ferritin AST Alkaline Phosphatase Magnesium Lactate Dehydrogenase Total Creatine Kinase CK-MB (CK-2) C-Reactive Protein Total Protein Albumin Troponin T HDL Cholesterol Arterial Blood Glucose Urine WBC (Auto) Urine Creatinine Urine Total Protein Phenytoin Coronavirus (PCR) Crossmatch 06/08/20 06/09/20 06/09/20 22:01 00:09 05:16 WBC 19.0 H RBC 3.35 L Hgb 9.2 L Hct 28.5 L MCHC RDW 16.3 H Lymph % (Auto) [place] % (Auto) Eos % (Auto) Lymph # [place] # Lymph # (Auto) [place] # (Auto) Eos # (Auto) Seg Neutrophils % Seg Neuts % (Manual) 85.0 H Lymphocytes % (Manual) 7.0 L Seg Neutrophils # Seg Neutrophils # Man 16.2 H Lymphocytes # (Manual) Monocytes % (Manual) Eosinophils % (Manual) Monocytes # (Manual) 1.3 H Eosinophils # (Manual) D-Dimer Heparin Anti-Xa Level ABG pH POC ABG pCO2 POC ABG pO2 ABG pO2 ABG HCO3 ABG O2 Saturation ABG Base Excess ABG Hemoglobin ABG Oxyhemoglobin VBG pH ABG Sodium ABG Potassium ABG Glucose Oxyhemoglobin Sodium Potassium Chloride Carbon Dioxide BUN Creatinine Glucose POC Glucose 182 H 150 H Lactic Acid Calcium Ferritin AST Alkaline Phosphatase Magnesium Lactate Dehydrogenase Total Creatine Kinase CK-MB (CK-2) C-Reactive Protein Total Protein Albumin Troponin T HDL Cholesterol Arterial Blood Glucose Urine WBC (Auto) Urine Creatinine Urine Total Protein Phenytoin Coronavirus (PCR) Crossmatch 06/09/20 06/09/20 06/09/20 05:16 05:24 11:29 WBC RBC Hgb Hct MCHC RDW Lymph % (Auto) [place] % (Auto) Eos % (Auto) Lymph # [place] # Lymph # (Auto) [place] # (Auto) Eos # (Auto) Seg Neutrophils % Seg Neuts % (Manual) Lymphocytes % (Manual) Seg Neutrophils # Seg Neutrophils # Man Lymphocytes # (Manual) Monocytes % (Manual) Eosinophils % (Manual) Monocytes # (Manual) Eosinophils # (Manual) D-Dimer Heparin Anti-Xa Level ABG pH POC ABG pCO2 POC ABG pO2 ABG pO2 ABG HCO3 ABG O2 Saturation ABG Base Excess ABG Hemoglobin ABG Oxyhemoglobin VBG pH ABG Sodium ABG Potassium ABG Glucose Oxyhemoglobin Sodium 133 L Potassium Chloride Carbon Dioxide 19 L BUN 109 H Creatinine 2.1 H Glucose 133 H POC Glucose 128 H 119 H Lactic Acid Calcium 7.7 L Ferritin AST Alkaline Phosphatase < 5 L Magnesium Lactate Dehydrogenase Total Creatine Kinase CK-MB (CK-2) C-Reactive Protein Total Protein 4.6 L Albumin < 0.2 L Troponin T HDL Cholesterol Arterial Blood Glucose Urine WBC (Auto) Urine Creatinine Urine Total Protein Phenytoin Coronavirus (PCR) Crossmatch 06/09/20 06/10/20 06/10/20 17:32 00:00 05:49 WBC RBC Hgb Hct MCHC RDW Lymph % (Auto) [place] % (Auto) Eos % (Auto) Lymph # [place] # Lymph # (Auto) [place] # (Auto) Eos # (Auto) Seg Neutrophils % Seg Neuts % (Manual) Lymphocytes % (Manual) Seg Neutrophils # Seg Neutrophils # Man Lymphocytes # (Manual) Monocytes % (Manual) Eosinophils % (Manual) Monocytes # (Manual) Eosinophils # (Manual) D-Dimer Heparin Anti-Xa Level 0.19 L ABG pH POC ABG pCO2 POC ABG pO2 ABG pO2 ABG HCO3 ABG O2 Saturation ABG Base Excess ABG Hemoglobin ABG Oxyhemoglobin VBG pH ABG Sodium ABG Potassium ABG Glucose Oxyhemoglobin Sodium Potassium Chloride Carbon Dioxide BUN Creatinine Glucose POC Glucose 106 H 117 H Lactic Acid Calcium Ferritin AST Alkaline Phosphatase Magnesium Lactate Dehydrogenase Total Creatine Kinase CK-MB (CK-2) C-Reactive Protein Total Protein Albumin Troponin T HDL Cholesterol Arterial Blood Glucose Urine WBC (Auto) Urine Creatinine Urine Total Protein Phenytoin Coronavirus (PCR) Crossmatch 06/10/20 06/10/20 06/10/20 05:54 07:40 11:40 WBC RBC Hgb Hct MCHC RDW Lymph % (Auto) [place] % (Auto) Eos % (Auto) Lymph # [place] # Lymph # (Auto) [place] # (Auto) Eos # (Auto) Seg Neutrophils % Seg Neuts % (Manual) Lymphocytes % (Manual) Seg Neutrophils # Seg Neutrophils # Man Lymphocytes # (Manual) Monocytes % (Manual) Eosinophils % (Manual) Monocytes # (Manual) Eosinophils # (Manual) D-Dimer Heparin Anti-Xa Level ABG pH POC ABG pCO2 POC ABG pO2 ABG pO2 ABG HCO3 ABG O2 Saturation ABG Base Excess ABG Hemoglobin ABG Oxyhemoglobin VBG pH ABG Sodium ABG Potassium ABG Glucose Oxyhemoglobin Sodium 146 H D Potassium Chloride Carbon Dioxide 20 L BUN 99 H Creatinine 1.9 H Glucose 121 H POC Glucose 127 H 138 H Lactic Acid Calcium 8.2 L Ferritin AST Alkaline Phosphatase Magnesium Lactate Dehydrogenase Total Creatine Kinase CK-MB (CK-2) C-Reactive Protein Total Protein Albumin Troponin T HDL Cholesterol Arterial Blood Glucose Urine WBC (Auto) Urine Creatinine Urine Total Protein Phenytoin Coronavirus (PCR) Crossmatch 06/10/20 06/10/20 06/10/20 14:44 17:31 23:22 WBC RBC Hgb Hct MCHC RDW Lymph % (Auto) [place] % (Auto) Eos % (Auto) Lymph # [place] # Lymph # (Auto) [place] # (Auto) Eos # (Auto) Seg Neutrophils % Seg Neuts % (Manual) Lymphocytes % (Manual) Seg Neutrophils # Seg Neutrophils # Man Lymphocytes # (Manual) Monocytes % (Manual) Eosinophils % (Manual) Monocytes # (Manual) Eosinophils # (Manual) D-Dimer Heparin Anti-Xa Level 0.17 L ABG pH POC ABG pCO2 POC ABG pO2 ABG pO2 ABG HCO3 ABG O2 Saturation ABG Base Excess ABG Hemoglobin ABG Oxyhemoglobin VBG pH ABG Sodium ABG Potassium ABG Glucose Oxyhemoglobin Sodium Potassium Chloride Carbon Dioxide BUN Creatinine Glucose POC Glucose 128 H 114 H Lactic Acid Calcium Ferritin AST Alkaline Phosphatase Magnesium Lactate Dehydrogenase Total Creatine Kinase CK-MB (CK-2) C-Reactive Protein Total Protein Albumin Troponin T HDL Cholesterol Arterial Blood Glucose Urine WBC (Auto) Urine Creatinine Urine Total Protein Phenytoin Coronavirus (PCR) Crossmatch 06/11/20 06/11/20 06/11/20 00:22 03:45 03:45 WBC 14.6 H RBC 2.77 L Hgb 7.9 L Hct 24.3 L MCHC RDW 16.8 H Lymph % (Auto) 6.6 L [place] % (Auto) 8.5 H Eos % (Auto) Lymph # 1.0 L [place] # 1.2 H Lymph # (Auto) [place] # (Auto) Eos # (Auto) Seg Neutrophils % 82.9 H Seg Neuts % (Manual) Lymphocytes % (Manual) Seg Neutrophils # 12.1 H Seg Neutrophils # Man Lymphocytes # (Manual) Monocytes % (Manual) Eosinophils % (Manual) Monocytes # (Manual) Eosinophils # (Manual) D-Dimer Heparin Anti-Xa Level 0.24 L ABG pH POC ABG pCO2 POC ABG pO2 ABG pO2 ABG HCO3 ABG O2 Saturation ABG Base Excess ABG Hemoglobin ABG Oxyhemoglobin VBG pH ABG Sodium ABG Potassium ABG Glucose Oxyhemoglobin Sodium Potassium Chloride Carbon Dioxide 20 L BUN 88 H Creatinine 1.5 H Glucose 111 H POC Glucose Lactic Acid Calcium 8.2 L Ferritin AST Alkaline Phosphatase Magnesium Lactate Dehydrogenase Total Creatine Kinase CK-MB (CK-2) C-Reactive Protein Total Protein Albumin Troponin T HDL Cholesterol Arterial Blood Glucose Urine WBC (Auto) Urine Creatinine Urine Total Protein Phenytoin Coronavirus (PCR) Crossmatch 06/11/20 06/11/20 06/11/20 06:03 10:22 11:11 WBC RBC Hgb Hct MCHC RDW Lymph % (Auto) [place] % (Auto) Eos % (Auto) Lymph # [place] # Lymph # (Auto) [place] # (Auto) Eos # (Auto) Seg Neutrophils % Seg Neuts % (Manual) Lymphocytes % (Manual) Seg Neutrophils # Seg Neutrophils # Man Lymphocytes # (Manual) Monocytes % (Manual) Eosinophils % (Manual) Monocytes # (Manual) Eosinophils # (Manual) D-Dimer Heparin Anti-Xa Level 0.26 L ABG pH POC ABG pCO2 POC ABG pO2 ABG pO2 ABG HCO3 ABG O2 Saturation ABG Base Excess ABG Hemoglobin 9.6 L ABG Oxyhemoglobin VBG pH ABG Sodium ABG Potassium ABG Glucose Oxyhemoglobin Sodium Potassium Chloride Carbon Dioxide BUN Creatinine Glucose POC Glucose 114 H Lactic Acid Calcium Ferritin AST Alkaline Phosphatase Magnesium Lactate Dehydrogenase Total Creatine Kinase CK-MB (CK-2) C-Reactive Protein Total Protein Albumin Troponin T HDL Cholesterol Arterial Blood Glucose Urine WBC (Auto) Urine Creatinine Urine Total Protein Phenytoin Coronavirus (PCR) Crossmatch 06/11/20 06/11/20 06/12/20 12:24 17:24 00:21 WBC RBC Hgb Hct MCHC RDW Lymph % (Auto) [place] % (Auto) Eos % (Auto) Lymph # [place] # Lymph # (Auto) [place] # (Auto) Eos # (Auto) Seg Neutrophils % Seg Neuts % (Manual) Lymphocytes % (Manual) Seg Neutrophils # Seg Neutrophils # Man Lymphocytes # (Manual) Monocytes % (Manual) Eosinophils % (Manual) Monocytes # (Manual) Eosinophils # (Manual) D-Dimer Heparin Anti-Xa Level ABG pH POC ABG pCO2 POC ABG pO2 ABG pO2 ABG HCO3 ABG O2 Saturation ABG Base Excess ABG Hemoglobin ABG Oxyhemoglobin VBG pH ABG Sodium ABG Potassium ABG Glucose Oxyhemoglobin Sodium Potassium Chloride Carbon Dioxide BUN Creatinine Glucose POC Glucose 119 H 126 H 117 H Lactic Acid Calcium Ferritin AST Alkaline Phosphatase Magnesium Lactate Dehydrogenase Total Creatine Kinase CK-MB (CK-2) C-Reactive Protein Total Protein Albumin Troponin T HDL Cholesterol Arterial Blood Glucose Urine WBC (Auto) Urine Creatinine Urine Total Protein Phenytoin Coronavirus (PCR) Crossmatch 06/12/20 06/12/20 06/12/20 02:46 02:46 05:46 WBC 13.2 H RBC 2.83 L Hgb 8.3 L Hct 24.3 L MCHC RDW 16.6 H Lymph % (Auto) 6.2 L [place] % (Auto) 9.5 H Eos % (Auto) Lymph # 0.8 L [place] # 1.3 H Lymph # (Auto) [place] # (Auto) Eos # (Auto) Seg Neutrophils % 81.9 H Seg Neuts % (Manual) Lymphocytes % (Manual) Seg Neutrophils # 10.9 H Seg Neutrophils # Man Lymphocytes # (Manual) Monocytes % (Manual) Eosinophils % (Manual) Monocytes # (Manual) Eosinophils # (Manual) D-Dimer Heparin Anti-Xa Level ABG pH POC ABG pCO2 POC ABG pO2 ABG pO2 ABG HCO3 ABG O2 Saturation ABG Base Excess ABG Hemoglobin ABG Oxyhemoglobin VBG pH ABG Sodium ABG Potassium ABG Glucose Oxyhemoglobin Sodium Potassium 3.5 L Chloride Carbon Dioxide BUN 77 H Creatinine 1.3 H Glucose POC Glucose 132 H Lactic Acid Calcium 8.3 L Ferritin AST Alkaline Phosphatase Magnesium Lactate Dehydrogenase Total Creatine Kinase CK-MB (CK-2) C-Reactive Protein Total Protein Albumin Troponin T HDL Cholesterol Arterial Blood Glucose Urine WBC (Auto) Urine Creatinine Urine Total Protein Phenytoin Coronavirus (PCR) Crossmatch 06/12/20 06/12/20 06/12/20 09:20 12:16 17:48 WBC RBC Hgb Hct MCHC RDW Lymph % (Auto) [place] % (Auto) Eos % (Auto) Lymph # [place] # Lymph # (Auto) [place] # (Auto) Eos # (Auto) Seg Neutrophils % Seg Neuts % (Manual) Lymphocytes % (Manual) Seg Neutrophils # Seg Neutrophils # Man Lymphocytes # (Manual) Monocytes % (Manual) Eosinophils % (Manual) Monocytes # (Manual) Eosinophils # (Manual) D-Dimer Heparin Anti-Xa Level ABG pH POC ABG pCO2 POC ABG pO2 ABG pO2 91.1 H ABG HCO3 ABG O2 Saturation ABG Base Excess ABG Hemoglobin ABG Oxyhemoglobin VBG pH ABG Sodium ABG Potassium ABG Glucose Oxyhemoglobin 94.8 L Sodium Potassium Chloride Carbon Dioxide BUN Creatinine Glucose POC Glucose 167 H 182 H Lactic Acid Calcium Ferritin AST Alkaline Phosphatase Magnesium Lactate Dehydrogenase Total Creatine Kinase CK-MB (CK-2) C-Reactive Protein Total Protein Albumin Troponin T HDL Cholesterol Arterial Blood Glucose Urine WBC (Auto) Urine Creatinine Urine Total Protein Phenytoin Coronavirus (PCR) Crossmatch 06/13/20 06/13/20 06/13/20 00:08 05:37 09:09 WBC RBC Hgb Hct MCHC RDW Lymph % (Auto) [place] % (Auto) Eos % (Auto) Lymph # [place] # Lymph # (Auto) [place] # (Auto) Eos # (Auto) Seg Neutrophils % Seg Neuts % (Manual) Lymphocytes % (Manual) Seg Neutrophils # Seg Neutrophils # Man Lymphocytes # (Manual) Monocytes % (Manual) Eosinophils % (Manual) Monocytes # (Manual) Eosinophils # (Manual) D-Dimer Heparin Anti-Xa Level 0.86 H ABG pH POC ABG pCO2 POC ABG pO2 ABG pO2 ABG HCO3 ABG O2 Saturation ABG Base Excess ABG Hemoglobin ABG Oxyhemoglobin VBG pH ABG Sodium ABG Potassium ABG Glucose Oxyhemoglobin Sodium Potassium Chloride Carbon Dioxide BUN Creatinine Glucose POC Glucose 142 H 119 H Lactic Acid Calcium Ferritin AST Alkaline Phosphatase Magnesium Lactate Dehydrogenase Total Creatine Kinase CK-MB (CK-2) C-Reactive Protein Total Protein Albumin Troponin T HDL Cholesterol Arterial Blood Glucose Urine WBC (Auto) Urine Creatinine Urine Total Protein Phenytoin Coronavirus (PCR) Crossmatch 06/13/20 06/13/20 06/13/20 12:28 17:55 21:17 WBC RBC Hgb Hct MCHC RDW Lymph % (Auto) [place] % (Auto) Eos % (Auto) Lymph # [place] # Lymph # (Auto) [place] # (Auto) Eos # (Auto) Seg Neutrophils % Seg Neuts % (Manual) Lymphocytes % (Manual) Seg Neutrophils # Seg Neutrophils # Man Lymphocytes # (Manual) Monocytes % (Manual) Eosinophils % (Manual) Monocytes # (Manual) Eosinophils # (Manual) D-Dimer Heparin Anti-Xa Level ABG pH POC ABG pCO2 POC ABG pO2 ABG pO2 ABG HCO3 ABG O2 Saturation ABG Base Excess ABG Hemoglobin ABG Oxyhemoglobin VBG pH ABG Sodium ABG Potassium ABG Glucose Oxyhemoglobin Sodium Potassium Chloride Carbon Dioxide BUN 61 H Creatinine Glucose 131 H POC Glucose 165 H 174 H Lactic Acid Calcium Ferritin AST Alkaline Phosphatase Magnesium Lactate Dehydrogenase Total Creatine Kinase CK-MB (CK-2) C-Reactive Protein Total Protein Albumin Troponin T HDL Cholesterol Arterial Blood Glucose Urine WBC (Auto) Urine Creatinine Urine Total Protein Phenytoin Coronavirus (PCR) Crossmatch 06/13/20 06/13/20 06/14/20 21:17 23:50 05:34 WBC RBC Hgb Hct MCHC RDW Lymph % (Auto) [place] % (Auto) Eos % (Auto) Lymph # [place] # Lymph # (Auto) [place] # (Auto) Eos # (Auto) Seg Neutrophils % Seg Neuts % (Manual) Lymphocytes % (Manual) Seg Neutrophils # Seg Neutrophils # Man Lymphocytes # (Manual) Monocytes % (Manual) Eosinophils % (Manual) Monocytes # (Manual) Eosinophils # (Manual) D-Dimer Heparin Anti-Xa Level 0.72 H ABG pH POC ABG pCO2 POC ABG pO2 ABG pO2 ABG HCO3 ABG O2 Saturation ABG Base Excess ABG Hemoglobin ABG Oxyhemoglobin VBG pH ABG Sodium ABG Potassium ABG Glucose Oxyhemoglobin Sodium 146 H Potassium Chloride 107.6 H Carbon Dioxide BUN 61 H Creatinine 1.3 H Glucose 135 H POC Glucose 146 H Lactic Acid Calcium Ferritin AST Alkaline Phosphatase Magnesium Lactate Dehydrogenase Total Creatine Kinase CK-MB (CK-2) C-Reactive Protein Total Protein Albumin Troponin T HDL Cholesterol Arterial Blood Glucose Urine WBC (Auto) Urine Creatinine Urine Total Protein Phenytoin Coronavirus (PCR) Crossmatch 06/14/20 06/14/20 06/14/20 06:11 09:28 11:30 WBC RBC Hgb Hct MCHC RDW Lymph % (Auto) [place] % (Auto) Eos % (Auto) Lymph # [place] # Lymph # (Auto) [place] # (Auto) Eos # (Auto) Seg Neutrophils % Seg Neuts % (Manual) Lymphocytes % (Manual) Seg Neutrophils # Seg Neutrophils # Man Lymphocytes # (Manual) Monocytes % (Manual) Eosinophils % (Manual) Monocytes # (Manual) Eosinophils # (Manual) D-Dimer Heparin Anti-Xa Level 0.90 H ABG pH POC ABG pCO2 POC ABG pO2 ABG pO2 ABG HCO3 ABG O2 Saturation ABG Base Excess ABG Hemoglobin ABG Oxyhemoglobin VBG pH ABG Sodium ABG Potassium ABG Glucose Oxyhemoglobin Sodium Potassium Chloride Carbon Dioxide BUN Creatinine Glucose POC Glucose 141 H 186 H Lactic Acid Calcium Ferritin AST Alkaline Phosphatase Magnesium Lactate Dehydrogenase Total Creatine Kinase CK-MB (CK-2) C-Reactive Protein Total Protein Albumin Troponin T HDL Cholesterol Arterial Blood Glucose Urine WBC (Auto) Urine Creatinine Urine Total Protein Phenytoin Coronavirus (PCR) Crossmatch 06/14/20 06/14/20 06/14/20 16:07 18:16 23:51 WBC RBC Hgb Hct MCHC RDW Lymph % (Auto) [place] % (Auto) Eos % (Auto) Lymph # [place] # Lymph # (Auto) [place] # (Auto) Eos # (Auto) Seg Neutrophils % Seg Neuts % (Manual) Lymphocytes % (Manual) Seg Neutrophils # Seg Neutrophils # Man Lymphocytes # (Manual) Monocytes % (Manual) Eosinophils % (Manual) Monocytes # (Manual) Eosinophils # (Manual) D-Dimer Heparin Anti-Xa Level 0.82 H ABG pH POC ABG pCO2 POC ABG pO2 ABG pO2 ABG HCO3 ABG O2 Saturation ABG Base Excess ABG Hemoglobin ABG Oxyhemoglobin VBG pH ABG Sodium ABG Potassium ABG Glucose Oxyhemoglobin Sodium Potassium Chloride Carbon Dioxide BUN Creatinine Glucose POC Glucose 106 H 154 H Lactic Acid Calcium Ferritin AST Alkaline Phosphatase Magnesium Lactate Dehydrogenase Total Creatine Kinase CK-MB (CK-2) C-Reactive Protein Total Protein Albumin Troponin T HDL Cholesterol Arterial Blood Glucose Urine WBC (Auto) Urine Creatinine Urine Total Protein Phenytoin Coronavirus (PCR) Crossmatch 06/15/20 06/15/20 06/15/20 04:24 04:24 05:59 WBC RBC 2.75 L Hgb 7.9 L Hct 24.0 L MCHC RDW 16.4 H Lymph % (Auto) 12.9 L [place] % (Auto) 8.7 H Eos % (Auto) 4.6 H Lymph # 1.1 L [place] # Lymph # (Auto) [place] # (Auto) Eos # (Auto) Seg Neutrophils % 73.2 H Seg Neuts % (Manual) Lymphocytes % (Manual) Seg Neutrophils # Seg Neutrophils # Man Lymphocytes # (Manual) Monocytes % (Manual) Eosinophils % (Manual) Monocytes # (Manual) Eosinophils # (Manual) D-Dimer Heparin Anti-Xa Level ABG pH POC ABG pCO2 POC ABG pO2 ABG pO2 ABG HCO3 ABG O2 Saturation ABG Base Excess ABG Hemoglobin ABG Oxyhemoglobin VBG pH ABG Sodium ABG Potassium ABG Glucose Oxyhemoglobin Sodium Potassium 3.4 L Chloride Carbon Dioxide BUN 55 H Creatinine 1.3 H Glucose 142 H POC Glucose 131 H Lactic Acid Calcium Ferritin AST Alkaline Phosphatase Magnesium Lactate Dehydrogenase Total Creatine Kinase CK-MB (CK-2) C-Reactive Protein Total Protein Albumin Troponin T HDL Cholesterol Arterial Blood Glucose Urine WBC (Auto) Urine Creatinine Urine Total Protein Phenytoin Coronavirus (PCR) Crossmatch 06/15/20 06/15/20 06/16/20 12:33 17:07 00:22 WBC RBC Hgb Hct MCHC RDW Lymph % (Auto) [place] % (Auto) Eos % (Auto) Lymph # [place] # Lymph # (Auto) [place] # (Auto) Eos # (Auto) Seg Neutrophils % Seg Neuts % (Manual) Lymphocytes % (Manual) Seg Neutrophils # Seg Neutrophils # Man Lymphocytes # (Manual) Monocytes % (Manual) Eosinophils % (Manual) Monocytes # (Manual) Eosinophils # (Manual) D-Dimer Heparin Anti-Xa Level 0.21 L ABG pH POC ABG pCO2 POC ABG pO2 ABG pO2 ABG HCO3 ABG O2 Saturation ABG Base Excess ABG Hemoglobin ABG Oxyhemoglobin VBG pH ABG Sodium ABG Potassium ABG Glucose Oxyhemoglobin Sodium Potassium Chloride Carbon Dioxide BUN Creatinine Glucose POC Glucose 180 H 185 H Lactic Acid Calcium Ferritin AST Alkaline Phosphatase Magnesium Lactate Dehydrogenase Total Creatine Kinase CK-MB (CK-2) C-Reactive Protein Total Protein Albumin Troponin T HDL Cholesterol Arterial Blood Glucose Urine WBC (Auto) Urine Creatinine Urine Total Protein Phenytoin Coronavirus (PCR) Crossmatch 06/16/20 06/16/20 06/16/20 01:45 08:06 09:15 WBC RBC Hgb Hct MCHC RDW Lymph % (Auto) [place] % (Auto) Eos % (Auto) Lymph # [place] # Lymph # (Auto) [place] # (Auto) Eos # (Auto) Seg Neutrophils % Seg Neuts % (Manual) Lymphocytes % (Manual) Seg Neutrophils # Seg Neutrophils # Man Lymphocytes # (Manual) Monocytes % (Manual) Eosinophils % (Manual) Monocytes # (Manual) Eosinophils # (Manual) D-Dimer Heparin Anti-Xa Level ABG pH POC ABG pCO2 POC ABG pO2 ABG pO2 ABG HCO3 ABG O2 Saturation ABG Base Excess ABG Hemoglobin ABG Oxyhemoglobin VBG pH ABG Sodium ABG Potassium ABG Glucose Oxyhemoglobin Sodium Potassium Chloride Carbon Dioxide BUN 49 H Creatinine Glucose 154 H POC Glucose 140 H 171 H Lactic Acid Calcium Ferritin AST Alkaline Phosphatase Magnesium Lactate Dehydrogenase Total Creatine Kinase CK-MB (CK-2) C-Reactive Protein Total Protein Albumin Troponin T HDL Cholesterol Arterial Blood Glucose Urine WBC (Auto) Urine Creatinine Urine Total Protein Phenytoin Coronavirus (PCR) Crossmatch 06/16/20 06/16/20 06/16/20 10:46 12:33 17:54 WBC RBC Hgb Hct MCHC RDW Lymph % (Auto) [place] % (Auto) Eos % (Auto) Lymph # [place] # Lymph # (Auto) [place] # (Auto) Eos # (Auto) Seg Neutrophils % Seg Neuts % (Manual) Lymphocytes % (Manual) Seg Neutrophils # Seg Neutrophils # Man Lymphocytes # (Manual) Monocytes % (Manual) Eosinophils % (Manual) Monocytes # (Manual) Eosinophils # (Manual) D-Dimer Heparin Anti-Xa Level 0.12 L ABG pH POC ABG pCO2 POC ABG pO2 ABG pO2 ABG HCO3 ABG O2 Saturation ABG Base Excess ABG Hemoglobin ABG Oxyhemoglobin VBG pH ABG Sodium ABG Potassium ABG Glucose Oxyhemoglobin Sodium Potassium Chloride Carbon Dioxide BUN Creatinine Glucose POC Glucose 166 H 151 H Lactic Acid Calcium Ferritin AST Alkaline Phosphatase Magnesium Lactate Dehydrogenase Total Creatine Kinase CK-MB (CK-2) C-Reactive Protein Total Protein Albumin Troponin T HDL Cholesterol Arterial Blood Glucose Urine WBC (Auto) Urine Creatinine Urine Total Protein Phenytoin Coronavirus (PCR) Crossmatch 06/16/20 06/17/20 06/17/20 18:47 00:00 02:19 WBC RBC Hgb Hct MCHC RDW Lymph % (Auto) [place] % (Auto) Eos % (Auto) Lymph # [place] # Lymph # (Auto) [place] # (Auto) Eos # (Auto) Seg Neutrophils % Seg Neuts % (Manual) Lymphocytes % (Manual) Seg Neutrophils # Seg Neutrophils # Man Lymphocytes # (Manual) Monocytes % (Manual) Eosinophils % (Manual) Monocytes # (Manual) Eosinophils # (Manual) D-Dimer Heparin Anti-Xa Level 0.73 H 0.77 H ABG pH POC ABG pCO2 POC ABG pO2 ABG pO2 ABG HCO3 ABG O2 Saturation ABG Base Excess ABG Hemoglobin ABG Oxyhemoglobin VBG pH ABG Sodium ABG Potassium ABG Glucose Oxyhemoglobin Sodium Potassium Chloride Carbon Dioxide BUN Creatinine Glucose POC Glucose 139 H Lactic Acid Calcium Ferritin AST Alkaline Phosphatase Magnesium Lactate Dehydrogenase Total Creatine Kinase CK-MB (CK-2) C-Reactive Protein Total Protein Albumin Troponin T HDL Cholesterol Arterial Blood Glucose Urine WBC (Auto) Urine Creatinine Urine Total Protein Phenytoin Coronavirus (PCR) Crossmatch 06/17/20 06/17/20 06/17/20 06:07 11:42 16:43 WBC RBC Hgb Hct MCHC RDW Lymph % (Auto) [place] % (Auto) Eos % (Auto) Lymph # [place] # Lymph # (Auto) [place] # (Auto) Eos # (Auto) Seg Neutrophils % Seg Neuts % (Manual) Lymphocytes % (Manual) Seg Neutrophils # Seg Neutrophils # Man Lymphocytes # (Manual) Monocytes % (Manual) Eosinophils % (Manual) Monocytes # (Manual) Eosinophils # (Manual) D-Dimer Heparin Anti-Xa Level 0.73 H ABG pH POC ABG pCO2 POC ABG pO2 ABG pO2 ABG HCO3 ABG O2 Saturation ABG Base Excess ABG Hemoglobin ABG Oxyhemoglobin VBG pH ABG Sodium ABG Potassium ABG Glucose Oxyhemoglobin Sodium Potassium Chloride Carbon Dioxide BUN Creatinine Glucose POC Glucose 169 H 169 H Lactic Acid Calcium Ferritin AST Alkaline Phosphatase Magnesium Lactate Dehydrogenase Total Creatine Kinase CK-MB (CK-2) C-Reactive Protein Total Protein Albumin Troponin T HDL Cholesterol Arterial Blood Glucose Urine WBC (Auto) Urine Creatinine Urine Total Protein Phenytoin Coronavirus (PCR) Crossmatch 06/17/20 06/17/20 06/17/20 18:18 23:08 23:16 WBC RBC Hgb Hct MCHC RDW Lymph % (Auto) [place] % (Auto) Eos % (Auto) Lymph # [place] # Lymph # (Auto) [place] # (Auto) Eos # (Auto) Seg Neutrophils % Seg Neuts % (Manual) Lymphocytes % (Manual) Seg Neutrophils # Seg Neutrophils # Man Lymphocytes # (Manual) Monocytes % (Manual) Eosinophils % (Manual) Monocytes # (Manual) Eosinophils # (Manual) D-Dimer Heparin Anti-Xa Level 0.71 H ABG pH POC ABG pCO2 POC ABG pO2 ABG pO2 ABG HCO3 ABG O2 Saturation ABG Base Excess ABG Hemoglobin ABG Oxyhemoglobin VBG pH ABG Sodium ABG Potassium ABG Glucose Oxyhemoglobin Sodium Potassium Chloride Carbon Dioxide BUN Creatinine Glucose POC Glucose 159 H 134 H Lactic Acid Calcium Ferritin AST Alkaline Phosphatase Magnesium Lactate Dehydrogenase Total Creatine Kinase CK-MB (CK-2) C-Reactive Protein Total Protein Albumin Troponin T HDL Cholesterol Arterial Blood Glucose Urine WBC (Auto) Urine Creatinine Urine Total Protein Phenytoin Coronavirus (PCR) Crossmatch 06/18/20 06/18/20 06/18/20 04:42 05:52 11:50 WBC RBC Hgb Hct MCHC RDW Lymph % (Auto) [place] % (Auto) Eos % (Auto) Lymph # [place] # Lymph # (Auto) [place] # (Auto) Eos # (Auto) Seg Neutrophils % Seg Neuts % (Manual) Lymphocytes % (Manual) Seg Neutrophils # Seg Neutrophils # Man Lymphocytes # (Manual) Monocytes % (Manual) Eosinophils % (Manual) Monocytes # (Manual) Eosinophils # (Manual) D-Dimer Heparin Anti-Xa Level ABG pH POC ABG pCO2 POC ABG pO2 ABG pO2 ABG HCO3 ABG O2 Saturation ABG Base Excess ABG Hemoglobin ABG Oxyhemoglobin VBG pH ABG Sodium ABG Potassium ABG Glucose Oxyhemoglobin Sodium Potassium Chloride Carbon Dioxide BUN 44 H Creatinine Glucose 115 H POC Glucose 171 H 167 H Lactic Acid Calcium Ferritin AST Alkaline Phosphatase Magnesium Lactate Dehydrogenase Total Creatine Kinase CK-MB (CK-2) C-Reactive Protein Total Protein Albumin Troponin T HDL Cholesterol Arterial Blood Glucose Urine WBC (Auto) Urine Creatinine Urine Total Protein Phenytoin Coronavirus (PCR) Crossmatch 06/18/20 06/19/20 06/19/20 23:46 05:48 07:52 WBC RBC Hgb Hct MCHC RDW Lymph % (Auto) [place] % (Auto) Eos % (Auto) Lymph # [place] # Lymph # (Auto) [place] # (Auto) Eos # (Auto) Seg Neutrophils % Seg Neuts % (Manual) Lymphocytes % (Manual) Seg Neutrophils # Seg Neutrophils # Man Lymphocytes # (Manual) Monocytes % (Manual) Eosinophils % (Manual) Monocytes # (Manual) Eosinophils # (Manual) D-Dimer Heparin Anti-Xa Level ABG pH POC ABG pCO2 POC ABG pO2 ABG pO2 ABG HCO3 ABG O2 Saturation ABG Base Excess ABG Hemoglobin ABG Oxyhemoglobin VBG pH ABG Sodium ABG Potassium ABG Glucose Oxyhemoglobin Sodium Potassium Chloride Carbon Dioxide BUN Creatinine Glucose POC Glucose 130 H 207 H 175 H Lactic Acid Calcium Ferritin AST Alkaline Phosphatase Magnesium Lactate Dehydrogenase Total Creatine Kinase CK-MB (CK-2) C-Reactive Protein Total Protein Albumin Troponin T HDL Cholesterol Arterial Blood Glucose Urine WBC (Auto) Urine Creatinine Urine Total Protein Phenytoin Coronavirus (PCR) Crossmatch 06/19/20 06/19/20 06/20/20 11:42 22:54 05:17 WBC RBC Hgb Hct MCHC RDW Lymph % (Auto) [place] % (Auto) Eos % (Auto) Lymph # [place] # Lymph # (Auto) [place] # (Auto) Eos # (Auto) Seg Neutrophils % Seg Neuts % (Manual) Lymphocytes % (Manual) Seg Neutrophils # Seg Neutrophils # Man Lymphocytes # (Manual) Monocytes % (Manual) Eosinophils % (Manual) Monocytes # (Manual) Eosinophils # (Manual) D-Dimer Heparin Anti-Xa Level ABG pH POC ABG pCO2 POC ABG pO2 ABG pO2 ABG HCO3 ABG O2 Saturation ABG Base Excess ABG Hemoglobin ABG Oxyhemoglobin VBG pH ABG Sodium ABG Potassium ABG Glucose Oxyhemoglobin Sodium Potassium Chloride Carbon Dioxide BUN Creatinine Glucose POC Glucose 166 H 135 H 218 H Lactic Acid Calcium Ferritin AST Alkaline Phosphatase Magnesium Lactate Dehydrogenase Total Creatine Kinase CK-MB (CK-2) C-Reactive Protein Total Protein Albumin Troponin T HDL Cholesterol Arterial Blood Glucose Urine WBC (Auto) Urine Creatinine Urine Total Protein Phenytoin Coronavirus (PCR) Crossmatch 06/20/20 06/20/20 06/20/20 12:04 16:25 16:35 WBC RBC Hgb Hct MCHC RDW Lymph % (Auto) [place] % (Auto) Eos % (Auto) Lymph # [place] # Lymph # (Auto) [place] # (Auto) Eos # (Auto) Seg Neutrophils % Seg Neuts % (Manual) Lymphocytes % (Manual) Seg Neutrophils # Seg Neutrophils # Man Lymphocytes # (Manual) Monocytes % (Manual) Eosinophils % (Manual) Monocytes # (Manual) Eosinophils # (Manual) D-Dimer Heparin Anti-Xa Level ABG pH POC ABG pCO2 POC ABG pO2 ABG pO2 59.6 L ABG HCO3 28.7 H ABG O2 Saturation 93.5 L ABG Base Excess 3.4 H ABG Hemoglobin 7.2 L ABG Oxyhemoglobin VBG pH ABG Sodium ABG Potassium ABG Glucose Oxyhemoglobin 91.3 L Sodium Potassium Chloride Carbon Dioxide BUN Creatinine Glucose POC Glucose 194 H 137 H Lactic Acid Calcium Ferritin AST Alkaline Phosphatase Magnesium Lactate Dehydrogenase Total Creatine Kinase CK-MB (CK-2) C-Reactive Protein Total Protein Albumin Troponin T HDL Cholesterol Arterial Blood Glucose Urine WBC (Auto) Urine Creatinine Urine Total Protein Phenytoin Coronavirus (PCR) Crossmatch 06/20/20 06/21/20 06/21/20 23:59 06:25 12:01 WBC RBC Hgb Hct MCHC RDW Lymph % (Auto) [place] % (Auto) Eos % (Auto) Lymph # [place] # Lymph # (Auto) [place] # (Auto) Eos # (Auto) Seg Neutrophils % Seg Neuts % (Manual) Lymphocytes % (Manual) Seg Neutrophils # Seg Neutrophils # Man Lymphocytes # (Manual) Monocytes % (Manual) Eosinophils % (Manual) Monocytes # (Manual) Eosinophils # (Manual) D-Dimer Heparin Anti-Xa Level ABG pH POC ABG pCO2 POC ABG pO2 ABG pO2 ABG HCO3 ABG O2 Saturation ABG Base Excess ABG Hemoglobin ABG Oxyhemoglobin VBG pH ABG Sodium ABG Potassium ABG Glucose Oxyhemoglobin Sodium Potassium Chloride Carbon Dioxide BUN Creatinine Glucose POC Glucose 156 H 177 H 195 H Lactic Acid Calcium Ferritin AST Alkaline Phosphatase Magnesium Lactate Dehydrogenase Total Creatine Kinase CK-MB (CK-2) C-Reactive Protein Total Protein Albumin Troponin T HDL Cholesterol Arterial Blood Glucose Urine WBC (Auto) Urine Creatinine Urine Total Protein Phenytoin Coronavirus (PCR) Crossmatch 06/21/20 06/21/20 06/22/20 17:04 21:51 05:06 WBC RBC Hgb Hct MCHC RDW Lymph % (Auto) [place] % (Auto) Eos % (Auto) Lymph # [place] # Lymph # (Auto) [place] # (Auto) Eos # (Auto) Seg Neutrophils % Seg Neuts % (Manual) Lymphocytes % (Manual) Seg Neutrophils # Seg Neutrophils # Man Lymphocytes # (Manual) Monocytes % (Manual) Eosinophils % (Manual) Monocytes # (Manual) Eosinophils # (Manual) D-Dimer Heparin Anti-Xa Level ABG pH POC ABG pCO2 POC ABG pO2 ABG pO2 ABG HCO3 ABG O2 Saturation ABG Base Excess ABG Hemoglobin ABG Oxyhemoglobin VBG pH ABG Sodium ABG Potassium ABG Glucose Oxyhemoglobin Sodium Potassium Chloride Carbon Dioxide BUN Creatinine Glucose POC Glucose 156 H 154 H 167 H Lactic Acid Calcium Ferritin AST Alkaline Phosphatase Magnesium Lactate Dehydrogenase Total Creatine Kinase CK-MB (CK-2) C-Reactive Protein Total Protein Albumin Troponin T HDL Cholesterol Arterial Blood Glucose Urine WBC (Auto) Urine Creatinine Urine Total Protein Phenytoin Coronavirus (PCR) Crossmatch 06/22/20 06/22/20 06/22/20 11:20 15:27 16:58 WBC RBC Hgb Hct MCHC RDW Lymph % (Auto) [place] % (Auto) Eos % (Auto) Lymph # [place] # Lymph # (Auto) [place] # (Auto) Eos # (Auto) Seg Neutrophils % Seg Neuts % (Manual) Lymphocytes % (Manual) Seg Neutrophils # Seg Neutrophils # Man Lymphocytes # (Manual) Monocytes % (Manual) Eosinophils % (Manual) Monocytes # (Manual) Eosinophils # (Manual) D-Dimer Heparin Anti-Xa Level ABG pH 7.206 L POC ABG pCO2 79.9 H POC ABG pO2 ABG pO2 ABG HCO3 ABG O2 Saturation ABG Base Excess ABG Hemoglobin 8.3 L ABG Oxyhemoglobin VBG pH ABG Sodium ABG Potassium ABG Glucose Oxyhemoglobin Sodium Potassium Chloride Carbon Dioxide BUN Creatinine Glucose POC Glucose 181 H 230 H Lactic Acid Calcium Ferritin AST Alkaline Phosphatase Magnesium Lactate Dehydrogenase Total Creatine Kinase CK-MB (CK-2) C-Reactive Protein Total Protein Albumin Troponin T HDL Cholesterol Arterial Blood Glucose Urine WBC (Auto) Urine Creatinine Urine Total Protein Phenytoin Coronavirus (PCR) Crossmatch 06/22/20 06/23/20 06/23/20 22:26 05:49 05:49 WBC RBC 2.58 L Hgb 7.4 L Hct 23.2 L MCHC RDW 17.0 H Lymph % (Auto) [place] % (Auto) 11.2 H Eos % (Auto) Lymph # 1.0 L [place] # Lymph # (Auto) [place] # (Auto) Eos # (Auto) Seg Neutrophils % Seg Neuts % (Manual) Lymphocytes % (Manual) Seg Neutrophils # Seg Neutrophils # Man Lymphocytes # (Manual) Monocytes % (Manual) Eosinophils % (Manual) Monocytes # (Manual) Eosinophils # (Manual) D-Dimer Heparin Anti-Xa Level ABG pH POC ABG pCO2 POC ABG pO2 ABG pO2 ABG HCO3 ABG O2 Saturation ABG Base Excess ABG Hemoglobin ABG Oxyhemoglobin VBG pH ABG Sodium ABG Potassium ABG Glucose Oxyhemoglobin Sodium Potassium Chloride Carbon Dioxide BUN 68 H Creatinine 2.4 H Glucose 198 H POC Glucose 195 H Lactic Acid Calcium Ferritin AST Alkaline Phosphatase Magnesium Lactate Dehydrogenase Total Creatine Kinase CK-MB (CK-2) C-Reactive Protein Total Protein Albumin Troponin T HDL Cholesterol Arterial Blood Glucose Urine WBC (Auto) Urine Creatinine Urine Total Protein Phenytoin Coronavirus (PCR) Crossmatch 06/23/20 06/23/20 06/23/20 05:50 12:29 12:34 WBC RBC Hgb Hct MCHC RDW Lymph % (Auto) [place] % (Auto) Eos % (Auto) Lymph # [place] # Lymph # (Auto) [place] # (Auto) Eos # (Auto) Seg Neutrophils % Seg Neuts % (Manual) Lymphocytes % (Manual) Seg Neutrophils # Seg Neutrophils # Man Lymphocytes # (Manual) Monocytes % (Manual) Eosinophils % (Manual) Monocytes # (Manual) Eosinophils # (Manual) D-Dimer Heparin Anti-Xa Level ABG pH POC ABG pCO2 54.7 H POC ABG pO2 68.8 L ABG pO2 ABG HCO3 ABG O2 Saturation ABG Base Excess ABG Hemoglobin 9.8 L ABG Oxyhemoglobin 92.6 L VBG pH ABG Sodium ABG Potassium ABG Glucose Oxyhemoglobin Sodium Potassium Chloride Carbon Dioxide BUN Creatinine Glucose POC Glucose 202 H 218 H Lactic Acid Calcium Ferritin AST Alkaline Phosphatase Magnesium Lactate Dehydrogenase Total Creatine Kinase CK-MB (CK-2) C-Reactive Protein Total Protein Albumin Troponin T HDL Cholesterol Arterial Blood Glucose Urine WBC (Auto) Urine Creatinine Urine Total Protein Phenytoin Coronavirus (PCR) Crossmatch 06/23/20 06/23/20 06/24/20 16:02 22:22 01:06 WBC RBC Hgb Hct MCHC RDW Lymph % (Auto) [place] % (Auto) Eos % (Auto) Lymph # [place] # Lymph # (Auto) [place] # (Auto) Eos # (Auto) Seg Neutrophils % Seg Neuts % (Manual) Lymphocytes % (Manual) Seg Neutrophils # Seg Neutrophils # Man Lymphocytes # (Manual) Monocytes % (Manual) Eosinophils % (Manual) Monocytes # (Manual) Eosinophils # (Manual) D-Dimer Heparin Anti-Xa Level ABG pH POC ABG pCO2 POC ABG pO2 ABG pO2 ABG HCO3 ABG O2 Saturation ABG Base Excess ABG Hemoglobin ABG Oxyhemoglobin VBG pH ABG Sodium ABG Potassium ABG Glucose Oxyhemoglobin Sodium Potassium Chloride Carbon Dioxide BUN Creatinine Glucose POC Glucose 190 H 166 H 171 H Lactic Acid Calcium Ferritin AST Alkaline Phosphatase Magnesium Lactate Dehydrogenase Total Creatine Kinase CK-MB (CK-2) C-Reactive Protein Total Protein Albumin Troponin T HDL Cholesterol Arterial Blood Glucose Urine WBC (Auto) Urine Creatinine Urine Total Protein Phenytoin Coronavirus (PCR) Crossmatch 06/24/20 06/24/20 06/24/20 04:48 05:35 11:48 WBC RBC Hgb Hct MCHC RDW Lymph % (Auto) [place] % (Auto) Eos % (Auto) Lymph # [place] # Lymph # (Auto) [place] # (Auto) Eos # (Auto) Seg Neutrophils % Seg Neuts % (Manual) Lymphocytes % (Manual) Seg Neutrophils # Seg Neutrophils # Man Lymphocytes # (Manual) Monocytes % (Manual) Eosinophils % (Manual) Monocytes # (Manual) Eosinophils # (Manual) D-Dimer Heparin Anti-Xa Level ABG pH POC ABG pCO2 POC ABG pO2 ABG pO2 ABG HCO3 ABG O2 Saturation ABG Base Excess ABG Hemoglobin ABG Oxyhemoglobin VBG pH ABG Sodium ABG Potassium ABG Glucose Oxyhemoglobin Sodium Potassium Chloride Carbon Dioxide BUN 75 H Creatinine 2.6 H Glucose 179 H POC Glucose 172 H 153 H Lactic Acid Calcium Ferritin AST Alkaline Phosphatase Magnesium Lactate Dehydrogenase Total Creatine Kinase CK-MB (CK-2) C-Reactive Protein Total Protein Albumin Troponin T HDL Cholesterol Arterial Blood Glucose Urine WBC (Auto) Urine Creatinine Urine Total Protein Phenytoin Coronavirus (PCR) Crossmatch 06/24/20 06/24/20 06/25/20 16:38 21:52 12:00 WBC RBC Hgb Hct MCHC RDW Lymph % (Auto) [place] % (Auto) Eos % (Auto) Lymph # [place] # Lymph # (Auto) [place] # (Auto) Eos # (Auto) Seg Neutrophils % Seg Neuts % (Manual) Lymphocytes % (Manual) Seg Neutrophils # Seg Neutrophils # Man Lymphocytes # (Manual) Monocytes % (Manual) Eosinophils % (Manual) Monocytes # (Manual) Eosinophils # (Manual) D-Dimer Heparin Anti-Xa Level ABG pH POC ABG pCO2 POC ABG pO2 ABG pO2 ABG HCO3 ABG O2 Saturation ABG Base Excess ABG Hemoglobin ABG Oxyhemoglobin VBG pH ABG Sodium ABG Potassium ABG Glucose Oxyhemoglobin Sodium Potassium Chloride Carbon Dioxide BUN Creatinine Glucose POC Glucose 123 H 115 H 203 H Lactic Acid Calcium Ferritin AST Alkaline Phosphatase Magnesium Lactate Dehydrogenase Total Creatine Kinase CK-MB (CK-2) C-Reactive Protein Total Protein Albumin Troponin T HDL Cholesterol Arterial Blood Glucose Urine WBC (Auto) Urine Creatinine Urine Total Protein Phenytoin Coronavirus (PCR) Crossmatch 06/25/20 06/25/20 06/25/20 15:43 16:37 23:02 WBC RBC Hgb Hct MCHC RDW Lymph % (Auto) [place] % (Auto) Eos % (Auto) Lymph # [place] # Lymph # (Auto) [place] # (Auto) Eos # (Auto) Seg Neutrophils % Seg Neuts % (Manual) Lymphocytes % (Manual) Seg Neutrophils # Seg Neutrophils # Man Lymphocytes # (Manual) Monocytes % (Manual) Eosinophils % (Manual) Monocytes # (Manual) Eosinophils # (Manual) D-Dimer Heparin Anti-Xa Level ABG pH POC ABG pCO2 POC ABG pO2 ABG pO2 ABG HCO3 ABG O2 Saturation ABG Base Excess ABG Hemoglobin ABG Oxyhemoglobin VBG pH ABG Sodium ABG Potassium ABG Glucose Oxyhemoglobin Sodium Potassium Chloride Carbon Dioxide BUN 71 H Creatinine 1.8 H Glucose 170 H POC Glucose 191 H 126 H Lactic Acid Calcium 8.2 L Ferritin AST Alkaline Phosphatase Magnesium Lactate Dehydrogenase Total Creatine Kinase CK-MB (CK-2) C-Reactive Protein Total Protein Albumin Troponin T HDL Cholesterol Arterial Blood Glucose Urine WBC (Auto) Urine Creatinine Urine Total Protein Phenytoin Coronavirus (PCR) Crossmatch 06/26/20 06/26/20 06/26/20 06:34 06:34 09:27 WBC RBC 2.41 L Hgb 6.9 L Hct 21.5 L MCHC RDW 16.7 H Lymph % (Auto) 10.9 L [place] % (Auto) 9.6 H Eos % (Auto) Lymph # 0.7 L [place] # Lymph # (Auto) [place] # (Auto) Eos # (Auto) Seg Neutrophils % 75.4 H Seg Neuts % (Manual) Lymphocytes % (Manual) Seg Neutrophils # Seg Neutrophils # Man Lymphocytes # (Manual) Monocytes % (Manual) Eosinophils % (Manual) Monocytes # (Manual) Eosinophils # (Manual) D-Dimer Heparin Anti-Xa Level ABG pH POC ABG pCO2 POC ABG pO2 ABG pO2 ABG HCO3 ABG O2 Saturation ABG Base Excess ABG Hemoglobin ABG Oxyhemoglobin VBG pH ABG Sodium ABG Potassium ABG Glucose Oxyhemoglobin Sodium Potassium Chloride Carbon Dioxide BUN 77 H Creatinine 1.9 H Glucose 190 H POC Glucose Lactic Acid Calcium Ferritin AST Alkaline Phosphatase Magnesium Lactate Dehydrogenase Total Creatine Kinase CK-MB (CK-2) C-Reactive Protein Total Protein Albumin Troponin T HDL Cholesterol Arterial Blood Glucose Urine WBC (Auto) Urine Creatinine Urine Total Protein Phenytoin Coronavirus (PCR) Crossmatch See Detail 06/26/20 06/26/20 06/26/20 12:15 16:28 17:28 WBC RBC Hgb Hct MCHC RDW Lymph % (Auto) [place] % (Auto) Eos % (Auto) Lymph # [place] # Lymph # (Auto) [place] # (Auto) Eos # (Auto) Seg Neutrophils % Seg Neuts % (Manual) Lymphocytes % (Manual) Seg Neutrophils # Seg Neutrophils # Man Lymphocytes # (Manual) Monocytes % (Manual) Eosinophils % (Manual) Monocytes # (Manual) Eosinophils # (Manual) D-Dimer Heparin Anti-Xa Level ABG pH POC ABG pCO2 POC ABG pO2 ABG pO2 ABG HCO3 ABG O2 Saturation ABG Base Excess ABG Hemoglobin ABG Oxyhemoglobin VBG pH ABG Sodium ABG Potassium ABG Glucose Oxyhemoglobin Sodium Potassium Chloride Carbon Dioxide BUN Creatinine Glucose POC Glucose 187 H 149 H 189 H Lactic Acid Calcium Ferritin AST Alkaline Phosphatase Magnesium Lactate Dehydrogenase Total Creatine Kinase CK-MB (CK-2) C-Reactive Protein Total Protein Albumin Troponin T HDL Cholesterol Arterial Blood Glucose Urine WBC (Auto) Urine Creatinine Urine Total Protein Phenytoin Coronavirus (PCR) Crossmatch 06/26/20 06/26/20 06/26/20 18:30 18:30 18:30 WBC RBC 2.87 L Hgb 8.2 L Hct 25.9 L MCHC RDW 17.8 H Lymph % (Auto) [place] % (Auto) Eos % (Auto) Lymph # [place] # Lymph # (Auto) [place] # (Auto) Eos # (Auto) Seg Neutrophils % Seg Neuts % (Manual) 83.0 H Lymphocytes % (Manual) 8.0 L Seg Neutrophils # Seg Neutrophils # Man Lymphocytes # (Manual) 0.6 L Monocytes % (Manual) Eosinophils % (Manual) Monocytes # (Manual) Eosinophils # (Manual) D-Dimer Heparin Anti-Xa Level ABG pH POC ABG pCO2 POC ABG pO2 ABG pO2 ABG HCO3 ABG O2 Saturation ABG Base Excess ABG Hemoglobin ABG Oxyhemoglobin VBG pH ABG Sodium ABG Potassium ABG Glucose Oxyhemoglobin Sodium Potassium Chloride Carbon Dioxide BUN 80 H Creatinine 2.1 H Glucose 260 H POC Glucose Lactic Acid 4.30 H* Calcium 8.3 L Ferritin AST Alkaline Phosphatase Magnesium Lactate Dehydrogenase Total Creatine Kinase CK-MB (CK-2) C-Reactive Protein Total Protein Albumin Troponin T HDL Cholesterol Arterial Blood Glucose Urine WBC (Auto) Urine Creatinine Urine Total Protein Phenytoin Coronavirus (PCR) Crossmatch 06/26/20 06/27/20 06/27/20 18:50 01:00 04:29 WBC RBC Hgb Hct MCHC RDW Lymph % (Auto) [place] % (Auto) Eos % (Auto) Lymph # [place] # Lymph # (Auto) [place] # (Auto) Eos # (Auto) Seg Neutrophils % Seg Neuts % (Manual) Lymphocytes % (Manual) Seg Neutrophils # Seg Neutrophils # Man Lymphocytes # (Manual) Monocytes % (Manual) Eosinophils % (Manual) Monocytes # (Manual) Eosinophils # (Manual) D-Dimer Heparin Anti-Xa Level ABG pH 7.296 L POC ABG pCO2 POC ABG pO2 ABG pO2 116.5 H 200.5 H ABG HCO3 28.4 H ABG O2 Saturation 99.3 H ABG Base Excess 3.7 H ABG Hemoglobin 5.6 L ABG Oxyhemoglobin VBG pH ABG Sodium ABG Potassium ABG Glucose Oxyhemoglobin Sodium Potassium Chloride Carbon Dioxide BUN Creatinine Glucose POC Glucose 123 H Lactic Acid Calcium Ferritin AST Alkaline Phosphatase Magnesium Lactate Dehydrogenase Total Creatine Kinase CK-MB (CK-2) C-Reactive Protein Total Protein Albumin Troponin T HDL Cholesterol Arterial Blood Glucose Urine WBC (Auto) Urine Creatinine Urine Total Protein Phenytoin Coronavirus (PCR) Crossmatch 09/06/27/20 06/27/20 05:00 05:00 05:00 WBC RBC 2.75 L Hgb 7.9 L Hct 24.3 L MCHC RDW 17.1 H Lymph % (Auto) 8.5 L [place] % (Auto) 12.6 H Eos % (Auto) Lymph # 0.7 L [place] # 1.0 H Lymph # (Auto) [place] # (Auto) Eos # (Auto) Seg Neutrophils % 77.5 H Seg Neuts % (Manual) Lymphocytes % (Manual) Seg Neutrophils # Seg Neutrophils # Man Lymphocytes # (Manual) Monocytes % (Manual) Eosinophils % (Manual) Monocytes # (Manual) Eosinophils # (Manual) D-Dimer Heparin Anti-Xa Level ABG pH POC ABG pCO2 POC ABG pO2 ABG pO2 ABG HCO3 ABG O2 Saturation ABG Base Excess ABG Hemoglobin ABG Oxyhemoglobin VBG pH ABG Sodium ABG Potassium ABG Glucose Oxyhemoglobin Sodium Potassium Chloride Carbon Dioxide BUN 80 H Creatinine 2.0 H Glucose 129 H POC Glucose Lactic Acid 0.60 L Calcium 7.9 L Ferritin AST Alkaline Phosphatase Magnesium Lactate Dehydrogenase Total Creatine Kinase CK-MB (CK-2) C-Reactive Protein Total Protein Albumin Troponin T HDL Cholesterol Arterial Blood Glucose Urine WBC (Auto) Urine Creatinine Urine Total Protein Phenytoin Coronavirus (PCR) Crossmatch 06/27/20 06/27/20 06/27/20 05:23 13:46 17:25 WBC RBC Hgb Hct MCHC RDW Lymph % (Auto) [place] % (Auto) Eos % (Auto) Lymph # [place] # Lymph # (Auto) [place] # (Auto) Eos # (Auto) Seg Neutrophils % Seg Neuts % (Manual) Lymphocytes % (Manual) Seg Neutrophils # Seg Neutrophils # Man Lymphocytes # (Manual) Monocytes % (Manual) Eosinophils % (Manual) Monocytes # (Manual) Eosinophils # (Manual) D-Dimer Heparin Anti-Xa Level ABG pH POC ABG pCO2 POC ABG pO2 ABG pO2 ABG HCO3 ABG O2 Saturation ABG Base Excess ABG Hemoglobin ABG Oxyhemoglobin VBG pH ABG Sodium ABG Potassium ABG Glucose Oxyhemoglobin Sodium Potassium Chloride Carbon Dioxide BUN Creatinine Glucose POC Glucose 109 H 158 H 162 H Lactic Acid Calcium Ferritin AST Alkaline Phosphatase Magnesium Lactate Dehydrogenase Total Creatine Kinase CK-MB (CK-2) C-Reactive Protein Total Protein Albumin Troponin T HDL Cholesterol Arterial Blood Glucose Urine WBC (Auto) Urine Creatinine Urine Total Protein Phenytoin Coronavirus (PCR) Crossmatch 06/27/20 06/27/20 06/28/20 18:43 23:46 04:05 WBC RBC Hgb 7.7 L Hct 22.1 L MCHC RDW Lymph % (Auto) [place] % (Auto) Eos % (Auto) Lymph # [place] # Lymph # (Auto) [place] # (Auto) Eos # (Auto) Seg Neutrophils % Seg Neuts % (Manual) Lymphocytes % (Manual) Seg Neutrophils # Seg Neutrophils # Man Lymphocytes # (Manual) Monocytes % (Manual) Eosinophils % (Manual) Monocytes # (Manual) Eosinophils # (Manual) D-Dimer Heparin Anti-Xa Level ABG pH POC ABG pCO2 POC ABG pO2 ABG pO2 102.7 H ABG HCO3 28.7 H ABG O2 Saturation ABG Base Excess 3.7 H ABG Hemoglobin ABG Oxyhemoglobin VBG pH ABG Sodium ABG Potassium ABG Glucose Oxyhemoglobin Sodium Potassium Chloride Carbon Dioxide BUN Creatinine Glucose POC Glucose 142 H Lactic Acid Calcium Ferritin AST Alkaline Phosphatase Magnesium Lactate Dehydrogenase Total Creatine Kinase CK-MB (CK-2) C-Reactive Protein Total Protein Albumin Troponin T HDL Cholesterol Arterial Blood Glucose Urine WBC (Auto) Urine Creatinine Urine Total Protein Phenytoin Coronavirus (PCR) Crossmatch 06/28/20 06/28/20 06/28/20 09:47 09:47 12:02 WBC RBC 2.53 L Hgb 7.4 L Hct 22.2 L MCHC RDW 16.8 H Lymph % (Auto) [place] % (Auto) 13.5 H Eos % (Auto) Lymph # 1.1 L [place] # 1.0 H Lymph # (Auto) [place] # (Auto) Eos # (Auto) Seg Neutrophils % Seg Neuts % (Manual) Lymphocytes % (Manual) Seg Neutrophils # Seg Neutrophils # Man Lymphocytes # (Manual) Monocytes % (Manual) Eosinophils % (Manual) Monocytes # (Manual) Eosinophils # (Manual) D-Dimer Heparin Anti-Xa Level ABG pH POC ABG pCO2 POC ABG pO2 ABG pO2 ABG HCO3 ABG O2 Saturation ABG Base Excess ABG Hemoglobin ABG Oxyhemoglobin VBG pH ABG Sodium ABG Potassium ABG Glucose Oxyhemoglobin Sodium Potassium Chloride Carbon Dioxide BUN 80 H Creatinine 1.5 H Glucose 139 H POC Glucose 169 H Lactic Acid Calcium 7.9 L Ferritin AST Alkaline Phosphatase Magnesium Lactate Dehydrogenase Total Creatine Kinase CK-MB (CK-2) C-Reactive Protein Total Protein 5.0 L Albumin 2.1 L Troponin T HDL Cholesterol Arterial Blood Glucose Urine WBC (Auto) Urine Creatinine Urine Total Protein Phenytoin Coronavirus (PCR) Crossmatch 06/28/20 06/28/20 06/28/20 12:30 12:30 17:24 WBC RBC 2.38 L Hgb 7.3 L Hct 20.9 L MCHC 35 H RDW 16.7 H Lymph % (Auto) [place] % (Auto) Eos % (Auto) Lymph # [place] # Lymph # (Auto) [place] # (Auto) Eos # (Auto) Seg Neutrophils % Seg Neuts % (Manual) Lymphocytes % (Manual) Seg Neutrophils # Seg Neutrophils # Man Lymphocytes # (Manual) Monocytes % (Manual) Eosinophils % (Manual) Monocytes # (Manual) Eosinophils # (Manual) D-Dimer Heparin Anti-Xa Level ABG pH POC ABG pCO2 POC ABG pO2 ABG pO2 ABG HCO3 ABG O2 Saturation ABG Base Excess ABG Hemoglobin ABG Oxyhemoglobin VBG pH ABG Sodium ABG Potassium ABG Glucose Oxyhemoglobin Sodium Potassium Chloride Carbon Dioxide BUN 74 H Creatinine 1.5 H Glucose 143 H POC Glucose 173 H Lactic Acid Calcium 7.5 L Ferritin AST Alkaline Phosphatase Magnesium Lactate Dehydrogenase Total Creatine Kinase CK-MB (CK-2) C-Reactive Protein Total Protein Albumin Troponin T HDL Cholesterol Arterial Blood Glucose Urine WBC (Auto) Urine Creatinine Urine Total Protein Phenytoin Coronavirus (PCR) Crossmatch 06/29/20 06/29/20 06/29/20 00:02 03:54 04:38 WBC RBC 2.55 L Hgb 7.3 L Hct 22.4 L MCHC RDW 16.4 H Lymph % (Auto) 13.3 L [place] % (Auto) 12.5 H Eos % (Auto) Lymph # 1.1 L [place] # 1.0 H Lymph # (Auto) [place] # (Auto) Eos # (Auto) Seg Neutrophils % Seg Neuts % (Manual) Lymphocytes % (Manual) Seg Neutrophils # Seg Neutrophils # Man Lymphocytes # (Manual) Monocytes % (Manual) Eosinophils % (Manual) Monocytes # (Manual) Eosinophils # (Manual) D-Dimer Heparin Anti-Xa Level ABG pH POC ABG pCO2 POC ABG pO2 ABG pO2 ABG HCO3 26.9 H ABG O2 Saturation ABG Base Excess ABG Hemoglobin 6.9 L ABG Oxyhemoglobin VBG pH ABG Sodium ABG Potassium ABG Glucose Oxyhemoglobin Sodium Potassium Chloride Carbon Dioxide BUN Creatinine Glucose POC Glucose 142 H Lactic Acid Calcium Ferritin AST Alkaline Phosphatase Magnesium Lactate Dehydrogenase Total Creatine Kinase CK-MB (CK-2) C-Reactive Protein Total Protein Albumin Troponin T HDL Cholesterol Arterial Blood Glucose Urine WBC (Auto) Urine Creatinine Urine Total Protein Phenytoin Coronavirus (PCR) Crossmatch 06/29/20 06/29/20 06/29/20 04:38 05:38 12:25 WBC RBC Hgb Hct MCHC RDW Lymph % (Auto) [place] % (Auto) Eos % (Auto) Lymph # [place] # Lymph # (Auto) [place] # (Auto) Eos # (Auto) Seg Neutrophils % Seg Neuts % (Manual) Lymphocytes % (Manual) Seg Neutrophils # Seg Neutrophils # Man Lymphocytes # (Manual) Monocytes % (Manual) Eosinophils % (Manual) Monocytes # (Manual) Eosinophils # (Manual) D-Dimer Heparin Anti-Xa Level ABG pH POC ABG pCO2 POC ABG pO2 ABG pO2 ABG HCO3 ABG O2 Saturation ABG Base Excess ABG Hemoglobin ABG Oxyhemoglobin VBG pH ABG Sodium ABG Potassium ABG Glucose Oxyhemoglobin Sodium Potassium Chloride 107.8 H Carbon Dioxide BUN 72 H Creatinine 1.4 H Glucose 127 H POC Glucose 122 H 138 H Lactic Acid Calcium 7.4 L Ferritin AST Alkaline Phosphatase Magnesium Lactate Dehydrogenase Total Creatine Kinase CK-MB (CK-2) C-Reactive Protein Total Protein Albumin Troponin T HDL Cholesterol Arterial Blood Glucose Urine WBC (Auto) Urine Creatinine Urine Total Protein Phenytoin Coronavirus (PCR) Crossmatch 06/29/20 06/29/20 06/29/20 14:45 14:45 14:45 WBC RBC Hgb Hct MCHC RDW Lymph % (Auto) [place] % (Auto) Eos % (Auto) Lymph # [place] # Lymph # (Auto) [place] # (Auto) Eos # (Auto) Seg Neutrophils % Seg Neuts % (Manual) Lymphocytes % (Manual) Seg Neutrophils # Seg Neutrophils # Man Lymphocytes # (Manual) Monocytes % (Manual) Eosinophils % (Manual) Monocytes # (Manual) Eosinophils # (Manual) D-Dimer 2310.15 H Heparin Anti-Xa Level ABG pH POC ABG pCO2 POC ABG pO2 ABG pO2 ABG HCO3 ABG O2 Saturation ABG Base Excess ABG Hemoglobin ABG Oxyhemoglobin VBG pH ABG Sodium ABG Potassium ABG Glucose Oxyhemoglobin Sodium Potassium Chloride Carbon Dioxide BUN Creatinine Glucose POC Glucose Lactic Acid Calcium Ferritin 223.6 H AST Alkaline Phosphatase Magnesium Lactate Dehydrogenase 367 H Total Creatine Kinase CK-MB (CK-2) C-Reactive Protein 3.60 H Total Protein Albumin Troponin T HDL Cholesterol Arterial Blood Glucose Urine WBC (Auto) Urine Creatinine Urine Total Protein Phenytoin Coronavirus (PCR) Crossmatch 06/29/20 06/29/20 06/29/20 18:27 23:35 Unknown WBC RBC Hgb Hct MCHC RDW Lymph % (Auto) [place] % (Auto) Eos % (Auto) Lymph # [place] # Lymph # (Auto) [place] # (Auto) Eos # (Auto) Seg Neutrophils % Seg Neuts % (Manual) Lymphocytes % (Manual) Seg Neutrophils # Seg Neutrophils # Man Lymphocytes # (Manual) Monocytes % (Manual) Eosinophils % (Manual) Monocytes # (Manual) Eosinophils # (Manual) D-Dimer Heparin Anti-Xa Level ABG pH POC ABG pCO2 POC ABG pO2 ABG pO2 ABG HCO3 ABG O2 Saturation ABG Base Excess ABG Hemoglobin ABG Oxyhemoglobin VBG pH ABG Sodium ABG Potassium ABG Glucose Oxyhemoglobin Sodium Potassium Chloride Carbon Dioxide BUN Creatinine Glucose POC Glucose 112 H 140 H Lactic Acid Calcium Ferritin AST Alkaline Phosphatase Magnesium Lactate Dehydrogenase Total Creatine Kinase CK-MB (CK-2) C-Reactive Protein Total Protein Albumin Troponin T HDL Cholesterol Arterial Blood Glucose Urine WBC (Auto) Urine Creatinine Urine Total Protein Phenytoin Coronavirus (PCR) Positive A Crossmatch 06/30/20 06/30/20 06/30/20 04:10 04:10 06:09 WBC RBC 2.44 L Hgb 7.1 L Hct 21.5 L MCHC RDW 16.6 H Lymph % (Auto) 11.0 L [place] % (Auto) 10.8 H Eos % (Auto) Lymph # 0.9 L [place] # 0.9 H Lymph # (Auto) [place] # (Auto) Eos # (Auto) Seg Neutrophils % 73.7 H Seg Neuts % (Manual) Lymphocytes % (Manual) Seg Neutrophils # Seg Neutrophils # Man Lymphocytes # (Manual) Monocytes % (Manual) Eosinophils % (Manual) Monocytes # (Manual) Eosinophils # (Manual) D-Dimer Heparin Anti-Xa Level ABG pH POC ABG pCO2 POC ABG pO2 ABG pO2 ABG HCO3 ABG O2 Saturation ABG Base Excess ABG Hemoglobin ABG Oxyhemoglobin VBG pH ABG Sodium ABG Potassium ABG Glucose Oxyhemoglobin Sodium Potassium Chloride 109.1 H Carbon Dioxide BUN 74 H Creatinine 1.3 H Glucose 191 H POC Glucose 187 H Lactic Acid Calcium 7.8 L Ferritin AST Alkaline Phosphatase Magnesium Lactate Dehydrogenase Total Creatine Kinase CK-MB (CK-2) C-Reactive Protein Total Protein Albumin Troponin T HDL Cholesterol Arterial Blood Glucose Urine WBC (Auto) Urine Creatinine Urine Total Protein Phenytoin Coronavirus (PCR) Crossmatch 06/30/20 06/30/20 06/30/20 12:04 17:43 23:41 WBC RBC Hgb Hct MCHC RDW Lymph % (Auto) [place] % (Auto) Eos % (Auto) Lymph # [place] # Lymph # (Auto) [place] # (Auto) Eos # (Auto) Seg Neutrophils % Seg Neuts % (Manual) Lymphocytes % (Manual) Seg Neutrophils # Seg Neutrophils # Man Lymphocytes # (Manual) Monocytes % (Manual) Eosinophils % (Manual) Monocytes # (Manual) Eosinophils # (Manual) D-Dimer Heparin Anti-Xa Level ABG pH POC ABG pCO2 POC ABG pO2 ABG pO2 ABG HCO3 ABG O2 Saturation ABG Base Excess ABG Hemoglobin ABG Oxyhemoglobin VBG pH ABG Sodium ABG Potassium ABG Glucose Oxyhemoglobin Sodium Potassium Chloride Carbon Dioxide BUN Creatinine Glucose POC Glucose 112 H 177 H 143 H Lactic Acid Calcium Ferritin AST Alkaline Phosphatase Magnesium Lactate Dehydrogenase Total Creatine Kinase CK-MB (CK-2) C-Reactive Protein Total Protein Albumin Troponin T HDL Cholesterol Arterial Blood Glucose Urine WBC (Auto) Urine Creatinine Urine Total Protein Phenytoin Coronavirus (PCR) Crossmatch 07/01/20 07/01/20 07/01/20 05:02 05:52 06:01 WBC 12.6 H RBC 2.95 L Hgb 8.2 L Hct 26.0 L MCHC RDW 16.9 H Lymph % (Auto) [place] % (Auto) Eos % (Auto) Lymph # [place] # Lymph # (Auto) [place] # (Auto) Eos # (Auto) Seg Neutrophils % Seg Neuts % (Manual) Lymphocytes % (Manual) Seg Neutrophils # Seg Neutrophils # Man 8.6 H Lymphocytes # (Manual) Monocytes % (Manual) Eosinophils % (Manual) 5.0 H Monocytes # (Manual) Eosinophils # (Manual) 0.6 H D-Dimer Heparin Anti-Xa Level ABG pH POC ABG pCO2 POC ABG pO2 ABG pO2 ABG HCO3 ABG O2 Saturation ABG Base Excess ABG Hemoglobin 8.2 L ABG Oxyhemoglobin VBG pH ABG Sodium ABG Potassium ABG Glucose Oxyhemoglobin Sodium Potassium Chloride Carbon Dioxide BUN Creatinine Glucose POC Glucose 129 H Lactic Acid Calcium Ferritin AST Alkaline Phosphatase Magnesium Lactate Dehydrogenase Total Creatine Kinase CK-MB (CK-2) C-Reactive Protein Total Protein Albumin Troponin T HDL Cholesterol Arterial Blood Glucose Urine WBC (Auto) Urine Creatinine Urine Total Protein Phenytoin Coronavirus (PCR) Crossmatch 07/01/20 07/01/20 07/01/20 06:01 06:01 06:08 WBC RBC Hgb Hct MCHC RDW Lymph % (Auto) [place] % (Auto) Eos % (Auto) Lymph # [place] # Lymph # (Auto) [place] # (Auto) Eos # (Auto) Seg Neutrophils % Seg Neuts % (Manual) Lymphocytes % (Manual) Seg Neutrophils # Seg Neutrophils # Man Lymphocytes # (Manual) Monocytes % (Manual) Eosinophils % (Manual) Monocytes # (Manual) Eosinophils # (Manual) D-Dimer Heparin Anti-Xa Level ABG pH POC ABG pCO2 POC ABG pO2 ABG pO2 ABG HCO3 ABG O2 Saturation ABG Base Excess ABG Hemoglobin ABG Oxyhemoglobin VBG pH ABG Sodium ABG Potassium ABG Glucose Oxyhemoglobin Sodium 147 H Potassium Chloride 108.0 H Carbon Dioxide BUN 71 H Creatinine 1.3 H Glucose 193 H POC Glucose 192 H Lactic Acid Calcium 8.1 L Ferritin AST Alkaline Phosphatase Magnesium Lactate Dehydrogenase Total Creatine Kinase 300 H CK-MB (CK-2) C-Reactive Protein Total Protein Albumin Troponin T 0.067 H HDL Cholesterol 61 H Arterial Blood Glucose Urine WBC (Auto) Urine Creatinine Urine Total Protein Phenytoin Coronavirus (PCR) Crossmatch 07/01/20 07/01/20 07/02/20 12:23 17:40 00:18 WBC RBC Hgb Hct MCHC RDW Lymph % (Auto) [place] % (Auto) Eos % (Auto) Lymph # [place] # Lymph # (Auto) [place] # (Auto) Eos # (Auto) Seg Neutrophils % Seg Neuts % (Manual) Lymphocytes % (Manual) Seg Neutrophils # Seg Neutrophils # Man Lymphocytes # (Manual) Monocytes % (Manual) Eosinophils % (Manual) Monocytes # (Manual) Eosinophils # (Manual) D-Dimer Heparin Anti-Xa Level ABG pH POC ABG pCO2 POC ABG pO2 ABG pO2 ABG HCO3 ABG O2 Saturation ABG Base Excess ABG Hemoglobin ABG Oxyhemoglobin VBG pH ABG Sodium ABG Potassium ABG Glucose Oxyhemoglobin Sodium Potassium Chloride Carbon Dioxide BUN Creatinine Glucose POC Glucose 111 H 135 H 145 H Lactic Acid Calcium Ferritin AST Alkaline Phosphatase Magnesium Lactate Dehydrogenase Total Creatine Kinase CK-MB (CK-2) C-Reactive Protein Total Protein Albumin Troponin T HDL Cholesterol Arterial Blood Glucose Urine WBC (Auto) Urine Creatinine Urine Total Protein Phenytoin Coronavirus (PCR) Crossmatch 07/02/20 07/02/20 07/02/20 04:11 04:23 05:54 WBC RBC Hgb Hct MCHC RDW Lymph % (Auto) [place] % (Auto) Eos % (Auto) Lymph # [place] # Lymph # (Auto) [place] # (Auto) Eos # (Auto) Seg Neutrophils % Seg Neuts % (Manual) Lymphocytes % (Manual) Seg Neutrophils # Seg Neutrophils # Man Lymphocytes # (Manual) Monocytes % (Manual) Eosinophils % (Manual) Monocytes # (Manual) Eosinophils # (Manual) D-Dimer Heparin Anti-Xa Level ABG pH POC ABG pCO2 POC ABG pO2 ABG pO2 ABG HCO3 ABG O2 Saturation ABG Base Excess ABG Hemoglobin 5.4 L ABG Oxyhemoglobin VBG pH ABG Sodium ABG Potassium ABG Glucose Oxyhemoglobin Sodium Potassium Chloride 108.6 H Carbon Dioxide BUN 72 H Creatinine Glucose 112 H POC Glucose 137 H Lactic Acid Calcium 7.8 L Ferritin AST Alkaline Phosphatase Magnesium Lactate Dehydrogenase Total Creatine Kinase CK-MB (CK-2) C-Reactive Protein Total Protein Albumin Troponin T HDL Cholesterol Arterial Blood Glucose Urine WBC (Auto) Urine Creatinine Urine Total Protein Phenytoin Coronavirus (PCR) Crossmatch 07/02/20 07/02/20 07/02/20 11:38 18:04 23:59 WBC RBC Hgb Hct MCHC RDW Lymph % (Auto) [place] % (Auto) Eos % (Auto) Lymph # [place] # Lymph # (Auto) [place] # (Auto) Eos # (Auto) Seg Neutrophils % Seg Neuts % (Manual) Lymphocytes % (Manual) Seg Neutrophils # Seg Neutrophils # Man Lymphocytes # (Manual) Monocytes % (Manual) Eosinophils % (Manual) Monocytes # (Manual) Eosinophils # (Manual) D-Dimer Heparin Anti-Xa Level ABG pH POC ABG pCO2 POC ABG pO2 ABG pO2 ABG HCO3 ABG O2 Saturation ABG Base Excess ABG Hemoglobin ABG Oxyhemoglobin VBG pH ABG Sodium ABG Potassium ABG Glucose Oxyhemoglobin Sodium Potassium Chloride Carbon Dioxide BUN Creatinine Glucose POC Glucose 128 H 135 H 156 H Lactic Acid Calcium Ferritin AST Alkaline Phosphatase Magnesium Lactate Dehydrogenase Total Creatine Kinase CK-MB (CK-2) C-Reactive Protein Total Protein Albumin Troponin T HDL Cholesterol Arterial Blood Glucose Urine WBC (Auto) Urine Creatinine Urine Total Protein Phenytoin Coronavirus (PCR) Crossmatch 07/03/20 07/03/20 07/03/20 03:49 06:00 11:31 WBC RBC Hgb Hct MCHC RDW Lymph % (Auto) [place] % (Auto) Eos % (Auto) Lymph # [place] # Lymph # (Auto) [place] # (Auto) Eos # (Auto) Seg Neutrophils % Seg Neuts % (Manual) Lymphocytes % (Manual) Seg Neutrophils # Seg Neutrophils # Man Lymphocytes # (Manual) Monocytes % (Manual) Eosinophils % (Manual) Monocytes # (Manual) Eosinophils # (Manual) D-Dimer Heparin Anti-Xa Level ABG pH POC ABG pCO2 POC ABG pO2 ABG pO2 121.0 H ABG HCO3 ABG O2 Saturation ABG Base Excess ABG Hemoglobin 8.5 L ABG Oxyhemoglobin VBG pH ABG Sodium ABG Potassium ABG Glucose Oxyhemoglobin Sodium Potassium Chloride Carbon Dioxide BUN Creatinine Glucose POC Glucose 135 H 141 H Lactic Acid Calcium Ferritin AST Alkaline Phosphatase Magnesium Lactate Dehydrogenase Total Creatine Kinase CK-MB (CK-2) C-Reactive Protein Total Protein Albumin Troponin T HDL Cholesterol Arterial Blood Glucose Urine WBC (Auto) Urine Creatinine Urine Total Protein Phenytoin Coronavirus (PCR) Crossmatch 07/03/20 07/03/20 07/03/20 16:00 16:07 17:40 WBC RBC Hgb Hct MCHC RDW Lymph % (Auto) [place] % (Auto) Eos % (Auto) Lymph # [place] # Lymph # (Auto) [place] # (Auto) Eos # (Auto) Seg Neutrophils % Seg Neuts % (Manual) Lymphocytes % (Manual) Seg Neutrophils # Seg Neutrophils # Man Lymphocytes # (Manual) Monocytes % (Manual) Eosinophils % (Manual) Monocytes # (Manual) Eosinophils # (Manual) D-Dimer Heparin Anti-Xa Level ABG pH 7.271 L POC ABG pCO2 POC ABG pO2 ABG pO2 126.9 H ABG HCO3 ABG O2 Saturation ABG Base Excess ABG Hemoglobin 8.2 L 8.1 L ABG Oxyhemoglobin VBG pH ABG Sodium 130.3 L ABG Potassium 4.9 H ABG Glucose 163 H Oxyhemoglobin Sodium Potassium Chloride Carbon Dioxide BUN Creatinine Glucose POC Glucose 120 H Lactic Acid Calcium Ferritin AST Alkaline Phosphatase Magnesium Lactate Dehydrogenase Total Creatine Kinase CK-MB (CK-2) C-Reactive Protein Total Protein Albumin Troponin T HDL Cholesterol Arterial Blood Glucose 163 H Urine WBC (Auto) Urine Creatinine Urine Total Protein Phenytoin Coronavirus (PCR) Crossmatch 07/04/20 07/04/20 07/04/20 05:49 11:54 18:00 WBC RBC Hgb Hct MCHC RDW Lymph % (Auto) [place] % (Auto) Eos % (Auto) Lymph # [place] # Lymph # (Auto) [place] # (Auto) Eos # (Auto) Seg Neutrophils % Seg Neuts % (Manual) Lymphocytes % (Manual) Seg Neutrophils # Seg Neutrophils # Man Lymphocytes # (Manual) Monocytes % (Manual) Eosinophils % (Manual) Monocytes # (Manual) Eosinophils # (Manual) D-Dimer Heparin Anti-Xa Level ABG pH POC ABG pCO2 POC ABG pO2 ABG pO2 ABG HCO3 ABG O2 Saturation ABG Base Excess ABG Hemoglobin ABG Oxyhemoglobin VBG pH ABG Sodium ABG Potassium ABG Glucose Oxyhemoglobin Sodium Potassium Chloride Carbon Dioxide BUN Creatinine Glucose POC Glucose 128 H 168 H 133 H Lactic Acid Calcium Ferritin AST Alkaline Phosphatase Magnesium Lactate Dehydrogenase Total Creatine Kinase CK-MB (CK-2) C-Reactive Protein Total Protein Albumin Troponin T HDL Cholesterol Arterial Blood Glucose Urine WBC (Auto) Urine Creatinine Urine Total Protein Phenytoin Coronavirus (PCR) Crossmatch 07/05/20 07/05/20 07/05/20 00:07 01:12 02:30 WBC RBC 2.35 L Hgb 6.9 L Hct 21.1 L MCHC RDW 16.8 H Lymph % (Auto) [place] % (Auto) Eos % (Auto) Lymph # [place] # Lymph # (Auto) [place] # (Auto) Eos # (Auto) Seg Neutrophils % Seg Neuts % (Manual) 74.0 H Lymphocytes % (Manual) 12.0 L Seg Neutrophils # Seg Neutrophils # Man 8.0 H Lymphocytes # (Manual) Monocytes % (Manual) 9.0 H Eosinophils % (Manual) Monocytes # (Manual) 1.0 H Eosinophils # (Manual) D-Dimer Heparin Anti-Xa Level ABG pH POC ABG pCO2 POC ABG pO2 ABG pO2 ABG HCO3 ABG O2 Saturation ABG Base Excess ABG Hemoglobin ABG Oxyhemoglobin VBG pH ABG Sodium ABG Potassium ABG Glucose Oxyhemoglobin Sodium Potassium Chloride Carbon Dioxide BUN Creatinine Glucose POC Glucose 121 H Lactic Acid Calcium Ferritin AST Alkaline Phosphatase Magnesium Lactate Dehydrogenase Total Creatine Kinase CK-MB (CK-2) C-Reactive Protein Total Protein Albumin Troponin T HDL Cholesterol Arterial Blood Glucose Urine WBC (Auto) Urine Creatinine Urine Total Protein Phenytoin Coronavirus (PCR) Crossmatch See Detail 07/05/20 07/05/20 07/05/20 12:09 13:05 18:04 WBC RBC Hgb Hct MCHC RDW Lymph % (Auto) [place] % (Auto) Eos % (Auto) Lymph # [place] # Lymph # (Auto) [place] # (Auto) Eos # (Auto) Seg Neutrophils % Seg Neuts % (Manual) Lymphocytes % (Manual) Seg Neutrophils # Seg Neutrophils # Man Lymphocytes # (Manual) Monocytes % (Manual) Eosinophils % (Manual) Monocytes # (Manual) Eosinophils # (Manual) D-Dimer Heparin Anti-Xa Level ABG pH 7.32 L POC ABG pCO2 POC ABG pO2 ABG pO2 78.3 L ABG HCO3 ABG O2 Saturation ABG Base Excess -2.6 L ABG Hemoglobin 7.3 L ABG Oxyhemoglobin VBG pH ABG Sodium ABG Potassium ABG Glucose Oxyhemoglobin Sodium Potassium Chloride Carbon Dioxide BUN Creatinine Glucose POC Glucose 132 H 160 H Lactic Acid Calcium Ferritin AST Alkaline Phosphatase Magnesium Lactate Dehydrogenase Total Creatine Kinase CK-MB (CK-2) C-Reactive Protein Total Protein Albumin Troponin T HDL Cholesterol Arterial Blood Glucose Urine WBC (Auto) Urine Creatinine Urine Total Protein Phenytoin Coronavirus (PCR) Crossmatch 07/05/20 07/05/20 07/05/20 23:13 23:13 23:43 WBC RBC 2.57 L Hgb 7.7 L Hct 23.0 L MCHC RDW 16.9 H Lymph % (Auto) [place] % (Auto) Eos % (Auto) Lymph # [place] # Lymph # (Auto) [place] # (Auto) Eos # (Auto) Seg Neutrophils % Seg Neuts % (Manual) Lymphocytes % (Manual) Seg Neutrophils # Seg Neutrophils # Man Lymphocytes # (Manual) Monocytes % (Manual) Eosinophils % (Manual) Monocytes # (Manual) Eosinophils # (Manual) D-Dimer Heparin Anti-Xa Level ABG pH POC ABG pCO2 POC ABG pO2 ABG pO2 ABG HCO3 ABG O2 Saturation ABG Base Excess ABG Hemoglobin ABG Oxyhemoglobin VBG pH ABG Sodium ABG Potassium ABG Glucose Oxyhemoglobin Sodium Potassium Chloride Carbon Dioxide 20 L BUN 80 H Creatinine 2.4 H D Glucose 124 H POC Glucose 121 H Lactic Acid Calcium 7.6 L Ferritin AST Alkaline Phosphatase Magnesium Lactate Dehydrogenase Total Creatine Kinase CK-MB (CK-2) C-Reactive Protein Total Protein Albumin Troponin T HDL Cholesterol Arterial Blood Glucose Urine WBC (Auto) Urine Creatinine Urine Total Protein Phenytoin Coronavirus (PCR) Crossmatch 07/06/20 07/06/20 07/06/20 13:20 14:48 17:28 WBC RBC Hgb Hct MCHC RDW Lymph % (Auto) [place] % (Auto) Eos % (Auto) Lymph # [place] # Lymph # (Auto) [place] # (Auto) Eos # (Auto) Seg Neutrophils % Seg Neuts % (Manual) Lymphocytes % (Manual) Seg Neutrophils # Seg Neutrophils # Man Lymphocytes # (Manual) Monocytes % (Manual) Eosinophils % (Manual) Monocytes # (Manual) Eosinophils # (Manual) D-Dimer Heparin Anti-Xa Level ABG pH POC ABG pCO2 POC ABG pO2 ABG pO2 ABG HCO3 ABG O2 Saturation ABG Base Excess ABG Hemoglobin ABG Oxyhemoglobin VBG pH ABG Sodium ABG Potassium ABG Glucose Oxyhemoglobin Sodium 136 L Potassium 5.5 H Chloride Carbon Dioxide 19 L BUN 82 H Creatinine 2.5 H Glucose 113 H POC Glucose 133 H Lactic Acid Calcium 7.7 L Ferritin AST Alkaline Phosphatase Magnesium Lactate Dehydrogenase Total Creatine Kinase CK-MB (CK-2) C-Reactive Protein Total Protein Albumin Troponin T HDL Cholesterol Arterial Blood Glucose Urine WBC (Auto) Urine Creatinine 33.3 H Urine Total Protein Phenytoin Coronavirus (PCR) Crossmatch 07/07/20 07/07/20 07/07/20 00:12 04:15 04:15 WBC RBC 2.28 L Hgb 6.8 L Hct 20.7 L MCHC RDW 16.8 H Lymph % (Auto) [place] % (Auto) Eos % (Auto) Lymph # [place] # Lymph # (Auto) [place] # (Auto) Eos # (Auto) Seg Neutrophils % Seg Neuts % (Manual) Lymphocytes % (Manual) 13.0 L Seg Neutrophils # Seg Neutrophils # Man Lymphocytes # (Manual) 1.0 L Monocytes % (Manual) 11.0 H Eosinophils % (Manual) Monocytes # (Manual) 0.9 H Eosinophils # (Manual) D-Dimer Heparin Anti-Xa Level ABG pH POC ABG pCO2 POC ABG pO2 ABG pO2 ABG HCO3 ABG O2 Saturation ABG Base Excess ABG Hemoglobin ABG Oxyhemoglobin VBG pH ABG Sodium ABG Potassium ABG Glucose Oxyhemoglobin Sodium Potassium Chloride Carbon Dioxide BUN Creatinine Glucose POC Glucose 154 H Lactic Acid Calcium Ferritin AST Alkaline Phosphatase Magnesium 2.50 H Lactate Dehydrogenase Total Creatine Kinase CK-MB (CK-2) C-Reactive Protein Total Protein Albumin Troponin T HDL Cholesterol Arterial Blood Glucose Urine WBC (Auto) Urine Creatinine Urine Total Protein Phenytoin Coronavirus (PCR) Crossmatch 07/07/20 07/07/20 07/07/20 05:31 12:31 13:22 WBC RBC Hgb Hct MCHC RDW Lymph % (Auto) [place] % (Auto) Eos % (Auto) Lymph # [place] # Lymph # (Auto) [place] # (Auto) Eos # (Auto) Seg Neutrophils % Seg Neuts % (Manual) Lymphocytes % (Manual) Seg Neutrophils # Seg Neutrophils # Man Lymphocytes # (Manual) Monocytes % (Manual) Eosinophils % (Manual) Monocytes # (Manual) Eosinophils # (Manual) D-Dimer Heparin Anti-Xa Level ABG pH POC ABG pCO2 POC ABG pO2 ABG pO2 ABG HCO3 ABG O2 Saturation ABG Base Excess ABG Hemoglobin ABG Oxyhemoglobin VBG pH ABG Sodium ABG Potassium ABG Glucose Oxyhemoglobin Sodium Potassium 5.6 H Chloride Carbon Dioxide BUN 86 H Creatinine 2.9 H Glucose 127 H POC Glucose 135 H 131 H Lactic Acid Calcium 8.1 L Ferritin AST Alkaline Phosphatase Magnesium Lactate Dehydrogenase Total Creatine Kinase CK-MB (CK-2) C-Reactive Protein Total Protein Albumin Troponin T HDL Cholesterol Arterial Blood Glucose Urine WBC (Auto) Urine Creatinine Urine Total Protein Phenytoin Coronavirus (PCR) Crossmatch 0907/[id number] 07/08/20 17:55 23:33 04:14 WBC RBC 3.28 L Hgb 9.7 L Hct 28.9 L D MCHC RDW 16.4 H Lymph % (Auto) 10.3 L [place] % (Auto) 10.0 H Eos % (Auto) Lymph # [place] # Lymph # (Auto) 1.1 L [place] # (Auto) 1.1 H Eos # (Auto) Seg Neutrophils % 77.2 H Seg Neuts % (Manual) Lymphocytes % (Manual) Seg Neutrophils # 8.2 H Seg Neutrophils # Man Lymphocytes # (Manual) Monocytes % (Manual) Eosinophils % (Manual) Monocytes # (Manual) Eosinophils # (Manual) D-Dimer Heparin Anti-Xa Level ABG pH POC ABG pCO2 POC ABG pO2 ABG pO2 ABG HCO3 ABG O2 Saturation ABG Base Excess ABG Hemoglobin ABG Oxyhemoglobin VBG pH ABG Sodium ABG Potassium ABG Glucose Oxyhemoglobin Sodium Potassium Chloride Carbon Dioxide BUN Creatinine Glucose POC Glucose 136 H 159 H Lactic Acid Calcium Ferritin AST Alkaline Phosphatase Magnesium Lactate Dehydrogenase Total Creatine Kinase CK-MB (CK-2) C-Reactive Protein Total Protein Albumin Troponin T HDL Cholesterol Arterial Blood Glucose Urine WBC (Auto) Urine Creatinine Urine Total Protein Phenytoin Coronavirus (PCR) Crossmatch 07/08/20 07/08/20 07/08/20 04:14 12:10 18:10 WBC RBC Hgb Hct MCHC RDW Lymph % (Auto) [place] % (Auto) Eos % (Auto) Lymph # [place] # Lymph # (Auto) [place] # (Auto) Eos # (Auto) Seg Neutrophils % Seg Neuts % (Manual) Lymphocytes % (Manual) Seg Neutrophils # Seg Neutrophils # Man Lymphocytes # (Manual) Monocytes % (Manual) Eosinophils % (Manual) Monocytes # (Manual) Eosinophils # (Manual) D-Dimer Heparin Anti-Xa Level ABG pH POC ABG pCO2 POC ABG pO2 ABG pO2 ABG HCO3 ABG O2 Saturation ABG Base Excess ABG Hemoglobin ABG Oxyhemoglobin VBG pH ABG Sodium ABG Potassium ABG Glucose Oxyhemoglobin Sodium 136 L Potassium Chloride Carbon Dioxide BUN 84 H Creatinine 2.8 H Glucose 109 H POC Glucose 108 H 125 H Lactic Acid Calcium 8.1 L Ferritin AST Alkaline Phosphatase Magnesium 2.50 H Lactate Dehydrogenase Total Creatine Kinase CK-MB (CK-2) C-Reactive Protein Total Protein Albumin Troponin T HDL Cholesterol Arterial Blood Glucose Urine WBC (Auto) Urine Creatinine Urine Total Protein Phenytoin Coronavirus (PCR) Crossmatch 07/08/20 07/09/20 07/09/20 23:50 05:39 11:57 WBC RBC Hgb Hct MCHC RDW Lymph % (Auto) [place] % (Auto) Eos % (Auto) Lymph # [place] # Lymph # (Auto) [place] # (Auto) Eos # (Auto) Seg Neutrophils % Seg Neuts % (Manual) Lymphocytes % (Manual) Seg Neutrophils # Seg Neutrophils # Man Lymphocytes # (Manual) Monocytes % (Manual) Eosinophils % (Manual) Monocytes # (Manual) Eosinophils # (Manual) D-Dimer Heparin Anti-Xa Level ABG pH POC ABG pCO2 POC ABG pO2 ABG pO2 ABG HCO3 ABG O2 Saturation ABG Base Excess ABG Hemoglobin ABG Oxyhemoglobin VBG pH ABG Sodium ABG Potassium ABG Glucose Oxyhemoglobin Sodium Potassium Chloride Carbon Dioxide BUN Creatinine Glucose POC Glucose 141 H 121 H 123 H Lactic Acid Calcium Ferritin AST Alkaline Phosphatase Magnesium Lactate Dehydrogenase Total Creatine Kinase CK-MB (CK-2) C-Reactive Protein Total Protein Albumin Troponin T HDL Cholesterol Arterial Blood Glucose Urine WBC (Auto) Urine Creatinine Urine Total Protein Phenytoin Coronavirus (PCR) Crossmatch 07/09/20 07/10/20 07/10/20 17:56 00:29 05:50 WBC RBC Hgb Hct MCHC RDW Lymph % (Auto) [place] % (Auto) Eos % (Auto) Lymph # [place] # Lymph # (Auto) [place] # (Auto) Eos # (Auto) Seg Neutrophils % Seg Neuts % (Manual) Lymphocytes % (Manual) Seg Neutrophils # Seg Neutrophils # Man Lymphocytes # (Manual) Monocytes % (Manual) Eosinophils % (Manual) Monocytes # (Manual) Eosinophils # (Manual) D-Dimer Heparin Anti-Xa Level ABG pH POC ABG pCO2 POC ABG pO2 ABG pO2 ABG HCO3 ABG O2 Saturation ABG Base Excess ABG Hemoglobin ABG Oxyhemoglobin VBG pH ABG Sodium ABG Potassium ABG Glucose Oxyhemoglobin Sodium Potassium Chloride Carbon Dioxide BUN Creatinine Glucose POC Glucose 119 H 122 H 124 H Lactic Acid Calcium Ferritin AST Alkaline Phosphatase Magnesium Lactate Dehydrogenase Total Creatine Kinase CK-MB (CK-2) C-Reactive Protein Total Protein Albumin Troponin T HDL Cholesterol Arterial Blood Glucose Urine WBC (Auto) Urine Creatinine Urine Total Protein Phenytoin Coronavirus (PCR) Crossmatch 07/10/20 07/10/20 07/10/20 10:41 10:41 12:25 WBC RBC 3.11 L Hgb 9.2 L Hct 27.6 L MCHC RDW 16.6 H Lymph % (Auto) [place] % (Auto) Eos % (Auto) Lymph # [place] # Lymph # (Auto) [place] # (Auto) Eos # (Auto) Seg Neutrophils % Seg Neuts % (Manual) 78.0 H Lymphocytes % (Manual) 11.0 L Seg Neutrophils # Seg Neutrophils # Man Lymphocytes # (Manual) 1.0 L Monocytes % (Manual) Eosinophils % (Manual) Monocytes # (Manual) Eosinophils # (Manual) D-Dimer Heparin Anti-Xa Level ABG pH POC ABG pCO2 POC ABG pO2 ABG pO2 ABG HCO3 ABG O2 Saturation ABG Base Excess ABG Hemoglobin ABG Oxyhemoglobin VBG pH ABG Sodium ABG Potassium ABG Glucose Oxyhemoglobin Sodium Potassium Chloride Carbon Dioxide BUN 85 H Creatinine 2.5 H Glucose 133 H POC Glucose 131 H Lactic Acid Calcium Ferritin AST Alkaline Phosphatase 131 H Magnesium Lactate Dehydrogenase Total Creatine Kinase CK-MB (CK-2) C-Reactive Protein Total Protein 5.2 L Albumin 1.6 L Troponin T HDL Cholesterol Arterial Blood Glucose Urine WBC (Auto) Urine Creatinine Urine Total Protein Phenytoin Coronavirus (PCR) Crossmatch 07/10/20 07/11/20 07/11/20 18:10 00:28 05:57 WBC RBC Hgb Hct MCHC RDW Lymph % (Auto) [place] % (Auto) Eos % (Auto) Lymph # [place] # Lymph # (Auto) [place] # (Auto) Eos # (Auto) Seg Neutrophils % Seg Neuts % (Manual) Lymphocytes % (Manual) Seg Neutrophils # Seg Neutrophils # Man Lymphocytes # (Manual) Monocytes % (Manual) Eosinophils % (Manual) Monocytes # (Manual) Eosinophils # (Manual) D-Dimer Heparin Anti-Xa Level ABG pH POC ABG pCO2 POC ABG pO2 ABG pO2 ABG HCO3 ABG O2 Saturation ABG Base Excess ABG Hemoglobin ABG Oxyhemoglobin VBG pH ABG Sodium ABG Potassium ABG Glucose Oxyhemoglobin Sodium Potassium Chloride Carbon Dioxide BUN Creatinine Glucose POC Glucose 134 H 140 H 148 H Lactic Acid Calcium Ferritin AST Alkaline Phosphatase Magnesium Lactate Dehydrogenase Total Creatine Kinase CK-MB (CK-2) C-Reactive Protein Total Protein Albumin Troponin T HDL Cholesterol Arterial Blood Glucose Urine WBC (Auto) Urine Creatinine Urine Total Protein Phenytoin Coronavirus (PCR) Crossmatch 07/11/20 07/11/20 07/11/20 12:14 17:28 23:49 WBC RBC Hgb Hct MCHC RDW Lymph % (Auto) [place] % (Auto) Eos % (Auto) Lymph # [place] # Lymph # (Auto) [place] # (Auto) Eos # (Auto) Seg Neutrophils % Seg Neuts % (Manual) Lymphocytes % (Manual) Seg Neutrophils # Seg Neutrophils # Man Lymphocytes # (Manual) Monocytes % (Manual) Eosinophils % (Manual) Monocytes # (Manual) Eosinophils # (Manual) D-Dimer Heparin Anti-Xa Level ABG pH POC ABG pCO2 POC ABG pO2 ABG pO2 ABG HCO3 ABG O2 Saturation ABG Base Excess ABG Hemoglobin ABG Oxyhemoglobin VBG pH ABG Sodium ABG Potassium ABG Glucose Oxyhemoglobin Sodium Potassium Chloride Carbon Dioxide BUN Creatinine Glucose POC Glucose 147 H 175 H 114 H Lactic Acid Calcium Ferritin AST Alkaline Phosphatase Magnesium Lactate Dehydrogenase Total Creatine Kinase CK-MB (CK-2) C-Reactive Protein Total Protein Albumin Troponin T HDL Cholesterol Arterial Blood Glucose Urine WBC (Auto) Urine Creatinine Urine Total Protein Phenytoin Coronavirus (PCR) Crossmatch 07/12/20 07/12/20 07/12/20 05:14 05:14 05:44 WBC RBC 2.78 L Hgb 8.5 L Hct 25.3 L MCHC RDW 16.7 H Lymph % (Auto) [place] % (Auto) Eos % (Auto) Lymph # [place] # Lymph # (Auto) [place] # (Auto) Eos # (Auto) Seg Neutrophils % Seg Neuts % (Manual) 81.0 H Lymphocytes % (Manual) 6.0 L Seg Neutrophils # Seg Neutrophils # Man Lymphocytes # (Manual) 0.6 L Monocytes % (Manual) 8.0 H Eosinophils % (Manual) Monocytes # (Manual) Eosinophils # (Manual) D-Dimer Heparin Anti-Xa Level ABG pH POC ABG pCO2 POC ABG pO2 ABG pO2 ABG HCO3 ABG O2 Saturation ABG Base Excess ABG Hemoglobin ABG Oxyhemoglobin VBG pH ABG Sodium ABG Potassium ABG Glucose Oxyhemoglobin Sodium Potassium Chloride Carbon Dioxide BUN 79 H Creatinine 2.2 H Glucose 131 H POC Glucose 116 H Lactic Acid Calcium Ferritin AST Alkaline Phosphatase Magnesium Lactate Dehydrogenase Total Creatine Kinase CK-MB (CK-2) C-Reactive Protein Total Protein Albumin Troponin T HDL Cholesterol Arterial Blood Glucose Urine WBC (Auto) Urine Creatinine Urine Total Protein Phenytoin Coronavirus (PCR) Crossmatch 07/12/20 07/12/20 07/13/20 11:32 17:53 00:18 WBC RBC Hgb Hct MCHC RDW Lymph % (Auto) [place] % (Auto) Eos % (Auto) Lymph # [place] # Lymph # (Auto) [place] # (Auto) Eos # (Auto) Seg Neutrophils % Seg Neuts % (Manual) Lymphocytes % (Manual) Seg Neutrophils # Seg Neutrophils # Man Lymphocytes # (Manual) Monocytes % (Manual) Eosinophils % (Manual) Monocytes # (Manual) Eosinophils # (Manual) D-Dimer Heparin Anti-Xa Level ABG pH POC ABG pCO2 POC ABG pO2 ABG pO2 ABG HCO3 ABG O2 Saturation ABG Base Excess ABG Hemoglobin ABG Oxyhemoglobin VBG pH ABG Sodium ABG Potassium ABG Glucose Oxyhemoglobin Sodium Potassium Chloride Carbon Dioxide BUN Creatinine Glucose POC Glucose 132 H 155 H 162 H Lactic Acid Calcium Ferritin AST Alkaline Phosphatase Magnesium Lactate Dehydrogenase Total Creatine Kinase CK-MB (CK-2) C-Reactive Protein Total Protein Albumin Troponin T HDL Cholesterol Arterial Blood Glucose Urine WBC (Auto) Urine Creatinine Urine Total Protein Phenytoin Coronavirus (PCR) Crossmatch 07/13/20 07/13/20 07/13/20 04:53 04:53 06:14 WBC RBC 2.86 L Hgb 8.4 L Hct 25.7 L MCHC RDW 16.8 H Lymph % (Auto) [place] % (Auto) Eos % (Auto) Lymph # [place] # Lymph # (Auto) [place] # (Auto) Eos # (Auto) Seg Neutrophils % Seg Neuts % (Manual) 84.0 H Lymphocytes % (Manual) 7.0 L Seg Neutrophils # Seg Neutrophils # Man Lymphocytes # (Manual) 0.6 L Monocytes % (Manual) Eosinophils % (Manual) Monocytes # (Manual) Eosinophils # (Manual) D-Dimer Heparin Anti-Xa Level ABG pH POC ABG pCO2 POC ABG pO2 ABG pO2 ABG HCO3 ABG O2 Saturation ABG Base Excess ABG Hemoglobin ABG Oxyhemoglobin VBG pH ABG Sodium ABG Potassium ABG Glucose Oxyhemoglobin Sodium 136 L Potassium Chloride Carbon Dioxide BUN 78 H Creatinine 2.0 H Glucose 130 H POC Glucose 141 H Lactic Acid Calcium Ferritin AST Alkaline Phosphatase Magnesium Lactate Dehydrogenase Total Creatine Kinase CK-MB (CK-2) C-Reactive Protein Total Protein Albumin Troponin T HDL Cholesterol Arterial Blood Glucose Urine WBC (Auto) Urine Creatinine Urine Total Protein Phenytoin Coronavirus (PCR) Crossmatch 07/13/20 07/13/20 07/14/20 12:50 18:27 00:22 WBC RBC Hgb Hct MCHC RDW Lymph % (Auto) [place] % (Auto) Eos % (Auto) Lymph # [place] # Lymph # (Auto) [place] # (Auto) Eos # (Auto) Seg Neutrophils % Seg Neuts % (Manual) Lymphocytes % (Manual) Seg Neutrophils # Seg Neutrophils # Man Lymphocytes # (Manual) Monocytes % (Manual) Eosinophils % (Manual) Monocytes # (Manual) Eosinophils # (Manual) D-Dimer Heparin Anti-Xa Level ABG pH POC ABG pCO2 POC ABG pO2 ABG pO2 ABG HCO3 ABG O2 Saturation ABG Base Excess ABG Hemoglobin ABG Oxyhemoglobin VBG pH ABG Sodium ABG Potassium ABG Glucose Oxyhemoglobin Sodium Potassium Chloride Carbon Dioxide BUN Creatinine Glucose POC Glucose 146 H 149 H 157 H Lactic Acid Calcium Ferritin AST Alkaline Phosphatase Magnesium Lactate Dehydrogenase Total Creatine Kinase CK-MB (CK-2) C-Reactive Protein Total Protein Albumin Troponin T HDL Cholesterol Arterial Blood Glucose Urine WBC (Auto) Urine Creatinine Urine Total Protein Phenytoin Coronavirus (PCR) Crossmatch 07/14/20 07/14/20 07/14/20 05:43 08:04 12:12 WBC RBC Hgb Hct MCHC RDW Lymph % (Auto) [place] % (Auto) Eos % (Auto) Lymph # [place] # Lymph # (Auto) [place] # (Auto) Eos # (Auto) Seg Neutrophils % Seg Neuts % (Manual) Lymphocytes % (Manual) Seg Neutrophils # Seg Neutrophils # Man Lymphocytes # (Manual) Monocytes % (Manual) Eosinophils % (Manual) Monocytes # (Manual) Eosinophils # (Manual) D-Dimer Heparin Anti-Xa Level ABG pH POC ABG pCO2 POC ABG pO2 ABG pO2 ABG HCO3 ABG O2 Saturation ABG Base Excess ABG Hemoglobin ABG Oxyhemoglobin VBG pH ABG Sodium ABG Potassium ABG Glucose Oxyhemoglobin Sodium Potassium Chloride Carbon Dioxide BUN Creatinine Glucose POC Glucose 169 H 185 H Lactic Acid Calcium Ferritin AST Alkaline Phosphatase Magnesium Lactate Dehydrogenase Total Creatine Kinase CK-MB (CK-2) C-Reactive Protein Total Protein Albumin Troponin T HDL Cholesterol Arterial Blood Glucose Urine WBC (Auto) Urine Creatinine Urine Total Protein Phenytoin Coronavirus (PCR) Positive A Crossmatch 07/14/20 07/15/20 07/15/20 17:23 00:04 06:06 WBC RBC Hgb Hct MCHC RDW Lymph % (Auto) [place] % (Auto) Eos % (Auto) Lymph # [place] # Lymph # (Auto) [place] # (Auto) Eos # (Auto) Seg Neutrophils % Seg Neuts % (Manual) Lymphocytes % (Manual) Seg Neutrophils # Seg Neutrophils # Man Lymphocytes # (Manual) Monocytes % (Manual) Eosinophils % (Manual) Monocytes # (Manual) Eosinophils # (Manual) D-Dimer Heparin Anti-Xa Level ABG pH POC ABG pCO2 POC ABG pO2 ABG pO2 ABG HCO3 ABG O2 Saturation ABG Base Excess ABG Hemoglobin ABG Oxyhemoglobin VBG pH ABG Sodium ABG Potassium ABG Glucose Oxyhemoglobin Sodium Potassium Chloride Carbon Dioxide BUN Creatinine Glucose POC Glucose 138 H 121 H 140 H Lactic Acid Calcium Ferritin AST Alkaline Phosphatase Magnesium Lactate Dehydrogenase Total Creatine Kinase CK-MB (CK-2) C-Reactive Protein Total Protein Albumin Troponin T HDL Cholesterol Arterial Blood Glucose Urine WBC (Auto) Urine Creatinine Urine Total Protein Phenytoin Coronavirus (PCR) Crossmatch 07/15/20 07/15/20 07/15/20 12:00 17:53 23:53 WBC RBC Hgb Hct MCHC RDW Lymph % (Auto) [place] % (Auto) Eos % (Auto) Lymph # [place] # Lymph # (Auto) [place] # (Auto) Eos # (Auto) Seg Neutrophils % Seg Neuts % (Manual) Lymphocytes % (Manual) Seg Neutrophils # Seg Neutrophils # Man Lymphocytes # (Manual) Monocytes % (Manual) Eosinophils % (Manual) Monocytes # (Manual) Eosinophils # (Manual) D-Dimer Heparin Anti-Xa Level ABG pH POC ABG pCO2 POC ABG pO2 ABG pO2 ABG HCO3 ABG O2 Saturation ABG Base Excess ABG Hemoglobin ABG Oxyhemoglobin VBG pH ABG Sodium ABG Potassium ABG Glucose Oxyhemoglobin Sodium Potassium Chloride Carbon Dioxide BUN Creatinine Glucose POC Glucose 137 H 161 H 156 H Lactic Acid Calcium Ferritin AST Alkaline Phosphatase Magnesium Lactate Dehydrogenase Total Creatine Kinase CK-MB (CK-2) C-Reactive Protein Total Protein Albumin Troponin T HDL Cholesterol Arterial Blood Glucose Urine WBC (Auto) Urine Creatinine Urine Total Protein Phenytoin Coronavirus (PCR) Crossmatch 07/16/20 07/16/20 07/17/20 05:26 17:44 00:07 WBC RBC Hgb Hct MCHC RDW Lymph % (Auto) [place] % (Auto) Eos % (Auto) Lymph # [place] # Lymph # (Auto) [place] # (Auto) Eos # (Auto) Seg Neutrophils % Seg Neuts % (Manual) Lymphocytes % (Manual) Seg Neutrophils # Seg Neutrophils # Man Lymphocytes # (Manual) Monocytes % (Manual) Eosinophils % (Manual) Monocytes # (Manual) Eosinophils # (Manual) D-Dimer Heparin Anti-Xa Level ABG pH POC ABG pCO2 POC ABG pO2 ABG pO2 ABG HCO3 ABG O2 Saturation ABG Base Excess ABG Hemoglobin ABG Oxyhemoglobin VBG pH ABG Sodium ABG Potassium ABG Glucose Oxyhemoglobin Sodium Potassium Chloride Carbon Dioxide BUN Creatinine Glucose POC Glucose 152 H 126 H 189 H Lactic Acid Calcium Ferritin AST Alkaline Phosphatase Magnesium Lactate Dehydrogenase Total Creatine Kinase CK-MB (CK-2) C-Reactive Protein Total Protein Albumin Troponin T HDL Cholesterol Arterial Blood Glucose Urine WBC (Auto) Urine Creatinine Urine Total Protein Phenytoin Coronavirus (PCR) Crossmatch 07/17/20 07/17/20 07/17/20 12:06 18:20 23:25 WBC RBC Hgb Hct MCHC RDW Lymph % (Auto) [place] % (Auto) Eos % (Auto) Lymph # [place] # Lymph # (Auto) [place] # (Auto) Eos # (Auto) Seg Neutrophils % Seg Neuts % (Manual) Lymphocytes % (Manual) Seg Neutrophils # Seg Neutrophils # Man Lymphocytes # (Manual) Monocytes % (Manual) Eosinophils % (Manual) Monocytes # (Manual) Eosinophils # (Manual) D-Dimer Heparin Anti-Xa Level ABG pH POC ABG pCO2 POC ABG pO2 ABG pO2 ABG HCO3 ABG O2 Saturation ABG Base Excess ABG Hemoglobin ABG Oxyhemoglobin VBG pH ABG Sodium ABG Potassium ABG Glucose Oxyhemoglobin Sodium Potassium Chloride Carbon Dioxide BUN Creatinine Glucose POC Glucose 155 H 206 H 161 H Lactic Acid Calcium Ferritin AST Alkaline Phosphatase Magnesium Lactate Dehydrogenase Total Creatine Kinase CK-MB (CK-2) C-Reactive Protein Total Protein Albumin Troponin T HDL Cholesterol Arterial Blood Glucose Urine WBC (Auto) Urine Creatinine Urine Total Protein Phenytoin Coronavirus (PCR) Crossmatch 07/18/20 07/18/20 07/18/20 04:24 05:16 11:53 WBC RBC Hgb Hct MCHC RDW Lymph % (Auto) [place] % (Auto) Eos % (Auto) Lymph # [place] # Lymph # (Auto) [place] # (Auto) Eos # (Auto) Seg Neutrophils % Seg Neuts % (Manual) Lymphocytes % (Manual) Seg Neutrophils # Seg Neutrophils # Man Lymphocytes # (Manual) Monocytes % (Manual) Eosinophils % (Manual) Monocytes # (Manual) Eosinophils # (Manual) D-Dimer Heparin Anti-Xa Level ABG pH POC ABG pCO2 POC ABG pO2 ABG pO2 ABG HCO3 ABG O2 Saturation ABG Base Excess ABG Hemoglobin 8.8 L ABG Oxyhemoglobin VBG pH ABG Sodium 131.6 L ABG Potassium 4.9 H ABG Glucose 131 H Oxyhemoglobin Sodium Potassium Chloride Carbon Dioxide BUN Creatinine Glucose POC Glucose 140 H 176 H Lactic Acid Calcium Ferritin AST Alkaline Phosphatase Magnesium Lactate Dehydrogenase Total Creatine Kinase CK-MB (CK-2) C-Reactive Protein Total Protein Albumin Troponin T HDL Cholesterol Arterial Blood Glucose 131 H Urine WBC (Auto) Urine Creatinine Urine Total Protein Phenytoin Coronavirus (PCR) Crossmatch 07/18/20 07/18/20 07/19/20 18:11 23:51 01:05 WBC RBC 2.76 L Hgb 7.9 L Hct 24.5 L MCHC RDW 17.6 H Lymph % (Auto) 11.6 L [place] % (Auto) 13.1 H Eos % (Auto) Lymph # [place] # Lymph # (Auto) 1.0 L [place] # (Auto) 1.1 H Eos # (Auto) Seg Neutrophils % 70.9 H Seg Neuts % (Manual) Lymphocytes % (Manual) Seg Neutrophils # Seg Neutrophils # Man Lymphocytes # (Manual) Monocytes % (Manual) Eosinophils % (Manual) Monocytes # (Manual) Eosinophils # (Manual) D-Dimer Heparin Anti-Xa Level ABG pH POC ABG pCO2 POC ABG pO2 ABG pO2 ABG HCO3 ABG O2 Saturation ABG Base Excess ABG Hemoglobin ABG Oxyhemoglobin VBG pH ABG Sodium ABG Potassium ABG Glucose Oxyhemoglobin Sodium Potassium Chloride Carbon Dioxide BUN Creatinine Glucose POC Glucose 143 H 159 H Lactic Acid Calcium Ferritin AST Alkaline Phosphatase Magnesium Lactate Dehydrogenase Total Creatine Kinase CK-MB (CK-2) C-Reactive Protein Total Protein Albumin Troponin T HDL Cholesterol Arterial Blood Glucose Urine WBC (Auto) Urine Creatinine Urine Total Protein Phenytoin Coronavirus (PCR) Crossmatch 07/19/20 07/19/20 07/19/20 01:05 05:54 12:46 WBC RBC Hgb Hct MCHC RDW Lymph % (Auto) [place] % (Auto) Eos % (Auto) Lymph # [place] # Lymph # (Auto) [place] # (Auto) Eos # (Auto) Seg Neutrophils % Seg Neuts % (Manual) Lymphocytes % (Manual) Seg Neutrophils # Seg Neutrophils # Man Lymphocytes # (Manual) Monocytes % (Manual) Eosinophils % (Manual) Monocytes # (Manual) Eosinophils # (Manual) D-Dimer Heparin Anti-Xa Level ABG pH POC ABG pCO2 POC ABG pO2 ABG pO2 ABG HCO3 ABG O2 Saturation ABG Base Excess ABG Hemoglobin ABG Oxyhemoglobin VBG pH ABG Sodium ABG Potassium ABG Glucose Oxyhemoglobin Sodium Potassium Chloride Carbon Dioxide BUN 86 H Creatinine 1.7 H Glucose 149 H POC Glucose 176 H 127 H Lactic Acid Calcium Ferritin AST Alkaline Phosphatase Magnesium Lactate Dehydrogenase Total Creatine Kinase CK-MB (CK-2) C-Reactive Protein Total Protein Albumin Troponin T HDL Cholesterol Arterial Blood Glucose Urine WBC (Auto) Urine Creatinine Urine Total Protein Phenytoin Coronavirus (PCR) Crossmatch 07/19/20 07/20/20 07/20/20 17:48 00:34 05:28 WBC RBC Hgb Hct MCHC RDW Lymph % (Auto) [place] % (Auto) Eos % (Auto) Lymph # [place] # Lymph # (Auto) [place] # (Auto) Eos # (Auto) Seg Neutrophils % Seg Neuts % (Manual) Lymphocytes % (Manual) Seg Neutrophils # Seg Neutrophils # Man Lymphocytes # (Manual) Monocytes % (Manual) Eosinophils % (Manual) Monocytes # (Manual) Eosinophils # (Manual) D-Dimer Heparin Anti-Xa Level ABG pH POC ABG pCO2 POC ABG pO2 ABG pO2 ABG HCO3 ABG O2 Saturation ABG Base Excess ABG Hemoglobin ABG Oxyhemoglobin VBG pH ABG Sodium ABG Potassium ABG Glucose Oxyhemoglobin Sodium Potassium Chloride Carbon Dioxide BUN Creatinine Glucose POC Glucose 123 H 147 H 110 H Lactic Acid Calcium Ferritin AST Alkaline Phosphatase Magnesium Lactate Dehydrogenase Total Creatine Kinase CK-MB (CK-2) C-Reactive Protein Total Protein Albumin Troponin T HDL Cholesterol Arterial Blood Glucose Urine WBC (Auto) Urine Creatinine Urine Total Protein Phenytoin Coronavirus (PCR) Crossmatch 07/20/20 07/20/20 07/21/20 12:10 17:00 00:11 WBC RBC Hgb Hct MCHC RDW Lymph % (Auto) [place] % (Auto) Eos % (Auto) Lymph # [place] # Lymph # (Auto) [place] # (Auto) Eos # (Auto) Seg Neutrophils % Seg Neuts % (Manual) Lymphocytes % (Manual) Seg Neutrophils # Seg Neutrophils # Man Lymphocytes # (Manual) Monocytes % (Manual) Eosinophils % (Manual) Monocytes # (Manual) Eosinophils # (Manual) D-Dimer Heparin Anti-Xa Level ABG pH POC ABG pCO2 POC ABG pO2 ABG pO2 ABG HCO3 ABG O2 Saturation ABG Base Excess ABG Hemoglobin ABG Oxyhemoglobin VBG pH ABG Sodium ABG Potassium ABG Glucose Oxyhemoglobin Sodium Potassium Chloride Carbon Dioxide BUN Creatinine Glucose POC Glucose 149 H 173 H 128 H Lactic Acid Calcium Ferritin AST Alkaline Phosphatase Magnesium Lactate Dehydrogenase Total Creatine Kinase CK-MB (CK-2) C-Reactive Protein Total Protein Albumin Troponin T HDL Cholesterol Arterial Blood Glucose Urine WBC (Auto) Urine Creatinine Urine Total Protein Phenytoin Coronavirus (PCR) Crossmatch 07/21/20 07/21/20 07/21/20 05:30 12:21 18:17 WBC RBC Hgb Hct MCHC RDW Lymph % (Auto) [place] % (Auto) Eos % (Auto) Lymph # [place] # Lymph # (Auto) [place] # (Auto) Eos # (Auto) Seg Neutrophils % Seg Neuts % (Manual) Lymphocytes % (Manual) Seg Neutrophils # Seg Neutrophils # Man Lymphocytes # (Manual) Monocytes % (Manual) Eosinophils % (Manual) Monocytes # (Manual) Eosinophils # (Manual) D-Dimer Heparin Anti-Xa Level ABG pH POC ABG pCO2 POC ABG pO2 ABG pO2 ABG HCO3 ABG O2 Saturation ABG Base Excess ABG Hemoglobin ABG Oxyhemoglobin VBG pH ABG Sodium ABG Potassium ABG Glucose Oxyhemoglobin Sodium Potassium Chloride Carbon Dioxide BUN Creatinine Glucose POC Glucose 153 H 144 H 160 H Lactic Acid Calcium Ferritin AST Alkaline Phosphatase Magnesium Lactate Dehydrogenase Total Creatine Kinase CK-MB (CK-2) C-Reactive Protein Total Protein Albumin Troponin T HDL Cholesterol Arterial Blood Glucose Urine WBC (Auto) Urine Creatinine Urine Total Protein Phenytoin Coronavirus (PCR) Crossmatch 07/22/20 07/22/20 07/22/20 00:45 05:52 12:03 WBC RBC Hgb Hct MCHC RDW Lymph % (Auto) [place] % (Auto) Eos % (Auto) Lymph # [place] # Lymph # (Auto) [place] # (Auto) Eos # (Auto) Seg Neutrophils % Seg Neuts % (Manual) Lymphocytes % (Manual) Seg Neutrophils # Seg Neutrophils # Man Lymphocytes # (Manual) Monocytes % (Manual) Eosinophils % (Manual) Monocytes # (Manual) Eosinophils # (Manual) D-Dimer Heparin Anti-Xa Level ABG pH POC ABG pCO2 POC ABG pO2 ABG pO2 ABG HCO3 ABG O2 Saturation ABG Base Excess ABG Hemoglobin ABG Oxyhemoglobin VBG pH ABG Sodium ABG Potassium ABG Glucose Oxyhemoglobin Sodium Potassium Chloride Carbon Dioxide BUN Creatinine Glucose POC Glucose 128 H 126 H 157 H Lactic Acid Calcium Ferritin AST Alkaline Phosphatase Magnesium Lactate Dehydrogenase Total Creatine Kinase CK-MB (CK-2) C-Reactive Protein Total Protein Albumin Troponin T HDL Cholesterol Arterial Blood Glucose Urine WBC (Auto) Urine Creatinine Urine Total Protein Phenytoin Coronavirus (PCR) Crossmatch 07/22/20 07/22/20 07/23/20 18:23 23:20 06:06 WBC RBC Hgb Hct MCHC RDW Lymph % (Auto) [place] % (Auto) Eos % (Auto) Lymph # [place] # Lymph # (Auto) [place] # (Auto) Eos # (Auto) Seg Neutrophils % Seg Neuts % (Manual) Lymphocytes % (Manual) Seg Neutrophils # Seg Neutrophils # Man Lymphocytes # (Manual) Monocytes % (Manual) Eosinophils % (Manual) Monocytes # (Manual) Eosinophils # (Manual) D-Dimer Heparin Anti-Xa Level ABG pH POC ABG pCO2 POC ABG pO2 ABG pO2 ABG HCO3 ABG O2 Saturation ABG Base Excess ABG Hemoglobin ABG Oxyhemoglobin VBG pH ABG Sodium ABG Potassium ABG Glucose Oxyhemoglobin Sodium Potassium Chloride Carbon Dioxide BUN Creatinine Glucose POC Glucose 152 H 122 H 143 H Lactic Acid Calcium Ferritin AST Alkaline Phosphatase Magnesium Lactate Dehydrogenase Total Creatine Kinase CK-MB (CK-2) C-Reactive Protein Total Protein Albumin Troponin T HDL Cholesterol Arterial Blood Glucose Urine WBC (Auto) Urine Creatinine Urine Total Protein Phenytoin Coronavirus (PCR) Crossmatch 07/23/20 07/23/20 07/23/20 12:11 17:38 19:23 WBC RBC Hgb Hct MCHC RDW Lymph % (Auto) [place] % (Auto) Eos % (Auto) Lymph # [place] # Lymph # (Auto) [place] # (Auto) Eos # (Auto) Seg Neutrophils % Seg Neuts % (Manual) Lymphocytes % (Manual) Seg Neutrophils # Seg Neutrophils # Man Lymphocytes # (Manual) Monocytes % (Manual) Eosinophils % (Manual) Monocytes # (Manual) Eosinophils # (Manual) D-Dimer Heparin Anti-Xa Level ABG pH POC ABG pCO2 POC ABG pO2 ABG pO2 ABG HCO3 ABG O2 Saturation ABG Base Excess ABG Hemoglobin ABG Oxyhemoglobin VBG pH ABG Sodium ABG Potassium ABG Glucose Oxyhemoglobin Sodium 129 L D Potassium 5.8 H Chloride 95.6 L Carbon Dioxide BUN 98 H Creatinine 2.1 H Glucose 167 H POC Glucose 210 H 181 H Lactic Acid Calcium Ferritin AST Alkaline Phosphatase Magnesium Lactate Dehydrogenase Total Creatine Kinase CK-MB (CK-2) C-Reactive Protein Total Protein Albumin 2.2 L Troponin T HDL Cholesterol Arterial Blood Glucose Urine WBC (Auto) Urine Creatinine Urine Total Protein Phenytoin Coronavirus (PCR) Crossmatch 07/24/20 07/24/20 07/24/20 00:00 04:29 04:29 WBC RBC 2.53 L Hgb 7.5 L Hct 22.8 L MCHC RDW 16.8 H Lymph % (Auto) 9.4 L [place] % (Auto) 10.4 H Eos % (Auto) 5.9 H Lymph # [place] # Lymph # (Auto) 0.8 L [place] # (Auto) 0.9 H Eos # (Auto) 0.5 H Seg Neutrophils % 73.5 H Seg Neuts % (Manual) Lymphocytes % (Manual) Seg Neutrophils # Seg Neutrophils # Man Lymphocytes # (Manual) Monocytes % (Manual) Eosinophils % (Manual) Monocytes # (Manual) Eosinophils # (Manual) D-Dimer Heparin Anti-Xa Level ABG pH POC ABG pCO2 POC ABG pO2 ABG pO2 ABG HCO3 ABG O2 Saturation ABG Base Excess ABG Hemoglobin ABG Oxyhemoglobin VBG pH ABG Sodium ABG Potassium ABG Glucose Oxyhemoglobin Sodium Potassium Chloride Carbon Dioxide BUN Creatinine Glucose POC Glucose 201 H Lactic Acid Calcium Ferritin AST Alkaline Phosphatase Magnesium Lactate Dehydrogenase Total Creatine Kinase CK-MB (CK-2) C-Reactive Protein Total Protein Albumin Troponin T HDL Cholesterol Arterial Blood Glucose Urine WBC (Auto) Urine Creatinine Urine Total Protein Phenytoin 9.4 L Coronavirus (PCR) Crossmatch 07/24/20 07/24/20 07/24/20 04:29 05:11 12:14 WBC RBC Hgb Hct MCHC RDW Lymph % (Auto) [place] % (Auto) Eos % (Auto) Lymph # [place] # Lymph # (Auto) [place] # (Auto) Eos # (Auto) Seg Neutrophils % Seg Neuts % (Manual) Lymphocytes % (Manual) Seg Neutrophils # Seg Neutrophils # Man Lymphocytes # (Manual) Monocytes % (Manual) Eosinophils % (Manual) Monocytes # (Manual) Eosinophils # (Manual) D-Dimer Heparin Anti-Xa Level ABG pH POC ABG pCO2 POC ABG pO2 ABG pO2 ABG HCO3 ABG O2 Saturation ABG Base Excess ABG Hemoglobin ABG Oxyhemoglobin VBG pH ABG Sodium ABG Potassium ABG Glucose Oxyhemoglobin Sodium 134 L Potassium 5.5 H Chloride Carbon Dioxide BUN 97 H Creatinine 2.2 H Glucose 149 H POC Glucose 142 H 146 H Lactic Acid Calcium Ferritin AST Alkaline Phosphatase Magnesium 2.60 H Lactate Dehydrogenase Total Creatine Kinase CK-MB (CK-2) C-Reactive Protein Total Protein Albumin Troponin T HDL Cholesterol Arterial Blood Glucose Urine WBC (Auto) Urine Creatinine Urine Total Protein Phenytoin Coronavirus (PCR) Crossmatch 07/24/20 07/24/20 07/25/20 18:12 21:00 00:08 WBC RBC Hgb Hct MCHC RDW Lymph % (Auto) [place] % (Auto) Eos % (Auto) Lymph # [place] # Lymph # (Auto) [place] # (Auto) Eos # (Auto) Seg Neutrophils % Seg Neuts % (Manual) Lymphocytes % (Manual) Seg Neutrophils # Seg Neutrophils # Man Lymphocytes # (Manual) Monocytes % (Manual) Eosinophils % (Manual) Monocytes # (Manual) Eosinophils # (Manual) D-Dimer Heparin Anti-Xa Level ABG pH POC ABG pCO2 POC ABG pO2 ABG pO2 ABG HCO3 ABG O2 Saturation ABG Base Excess ABG Hemoglobin ABG Oxyhemoglobin VBG pH ABG Sodium ABG Potassium ABG Glucose Oxyhemoglobin Sodium Potassium Chloride Carbon Dioxide BUN Creatinine Glucose POC Glucose 182 H 170 H 129 H Lactic Acid Calcium Ferritin AST Alkaline Phosphatase Magnesium Lactate Dehydrogenase Total Creatine Kinase CK-MB (CK-2) C-Reactive Protein Total Protein Albumin Troponin T HDL Cholesterol Arterial Blood Glucose Urine WBC (Auto) Urine Creatinine Urine Total Protein Phenytoin Coronavirus (PCR) Crossmatch 07/25/20 07/25/20 07/25/20 04:24 04:24 12:19 WBC RBC 2.51 L Hgb 7.5 L Hct 22.3 L MCHC RDW 17.4 H Lymph % (Auto) [place] % (Auto) Eos % (Auto) Lymph # [place] # Lymph # (Auto) [place] # (Auto) Eos # (Auto) Seg Neutrophils % Seg Neuts % (Manual) Lymphocytes % (Manual) Seg Neutrophils # Seg Neutrophils # Man Lymphocytes # (Manual) Monocytes % (Manual) Eosinophils % (Manual) Monocytes # (Manual) Eosinophils # (Manual) D-Dimer Heparin Anti-Xa Level ABG pH POC ABG pCO2 POC ABG pO2 ABG pO2 ABG HCO3 ABG O2 Saturation ABG Base Excess ABG Hemoglobin ABG Oxyhemoglobin VBG pH ABG Sodium ABG Potassium ABG Glucose Oxyhemoglobin Sodium 132 L Potassium Chloride 95.1 L Carbon Dioxide 21 L BUN 95 H Creatinine 2.5 H Glucose 108 H POC Glucose 122 H Lactic Acid Calcium Ferritin AST Alkaline Phosphatase Magnesium Lactate Dehydrogenase Total Creatine Kinase CK-MB (CK-2) C-Reactive Protein Total Protein Albumin Troponin T HDL Cholesterol Arterial Blood Glucose Urine WBC (Auto) Urine Creatinine Urine Total Protein Phenytoin Coronavirus (PCR) Crossmatch 07/25/20 07/25/20 07/26/20 18:11 23:24 04:22 WBC RBC Hgb Hct MCHC RDW Lymph % (Auto) [place] % (Auto) Eos % (Auto) Lymph # [place] # Lymph # (Auto) [place] # (Auto) Eos # (Auto) Seg Neutrophils % Seg Neuts % (Manual) Lymphocytes % (Manual) Seg Neutrophils # Seg Neutrophils # Man Lymphocytes # (Manual) Monocytes % (Manual) Eosinophils % (Manual) Monocytes # (Manual) Eosinophils # (Manual) D-Dimer Heparin Anti-Xa Level ABG pH POC ABG pCO2 POC ABG pO2 ABG pO2 ABG HCO3 ABG O2 Saturation ABG Base Excess ABG Hemoglobin ABG Oxyhemoglobin VBG pH ABG Sodium ABG Potassium ABG Glucose Oxyhemoglobin Sodium 132 L Potassium Chloride 96.2 L Carbon Dioxide 21 L BUN 99 H Creatinine 2.5 H Glucose 132 H POC Glucose 137 H 117 H Lactic Acid Calcium 8.2 L Ferritin AST Alkaline Phosphatase Magnesium Lactate Dehydrogenase Total Creatine Kinase CK-MB (CK-2) C-Reactive Protein Total Protein Albumin Troponin T HDL Cholesterol Arterial Blood Glucose Urine WBC (Auto) Urine Creatinine Urine Total Protein Phenytoin Coronavirus (PCR) Crossmatch 07/26/20 07/26/20 07/26/20 05:58 12:21 17:31 WBC RBC Hgb Hct MCHC RDW Lymph % (Auto) [place] % (Auto) Eos % (Auto) Lymph # [place] # Lymph # (Auto) [place] # (Auto) Eos # (Auto) Seg Neutrophils % Seg Neuts % (Manual) Lymphocytes % (Manual) Seg Neutrophils # Seg Neutrophils # Man Lymphocytes # (Manual) Monocytes % (Manual) Eosinophils % (Manual) Monocytes # (Manual) Eosinophils # (Manual) D-Dimer Heparin Anti-Xa Level ABG pH POC ABG pCO2 POC ABG pO2 ABG pO2 ABG HCO3 ABG O2 Saturation ABG Base Excess ABG Hemoglobin ABG Oxyhemoglobin VBG pH ABG Sodium ABG Potassium ABG Glucose Oxyhemoglobin Sodium Potassium Chloride Carbon Dioxide BUN Creatinine Glucose POC Glucose 110 H 142 H 180 H Lactic Acid Calcium Ferritin AST Alkaline Phosphatase Magnesium Lactate Dehydrogenase Total Creatine Kinase CK-MB (CK-2) C-Reactive Protein Total Protein Albumin Troponin T HDL Cholesterol Arterial Blood Glucose Urine WBC (Auto) Urine Creatinine Urine Total Protein Phenytoin Coronavirus (PCR) Crossmatch 07/26/20 07/27/20 07/27/20 23:36 03:36 05:36 WBC RBC 2.49 L Hgb 7.3 L Hct 22.2 L MCHC RDW 17.2 H Lymph % (Auto) 11.0 L [place] % (Auto) 11.7 H Eos % (Auto) Lymph # [place] # Lymph # (Auto) 0.8 L [place] # (Auto) 0.9 H Eos # (Auto) Seg Neutrophils % 72.3 H Seg Neuts % (Manual) Lymphocytes % (Manual) Seg Neutrophils # Seg Neutrophils # Man Lymphocytes # (Manual) Monocytes % (Manual) Eosinophils % (Manual) Monocytes # (Manual) Eosinophils # (Manual) D-Dimer Heparin Anti-Xa Level ABG pH POC ABG pCO2 POC ABG pO2 ABG pO2 ABG HCO3 ABG O2 Saturation ABG Base Excess ABG Hemoglobin ABG Oxyhemoglobin VBG pH ABG Sodium ABG Potassium ABG Glucose Oxyhemoglobin Sodium Potassium Chloride Carbon Dioxide BUN Creatinine Glucose POC Glucose 162 H 118 H Lactic Acid Calcium Ferritin AST Alkaline Phosphatase Magnesium Lactate Dehydrogenase Total Creatine Kinase CK-MB (CK-2) C-Reactive Protein Total Protein Albumin Troponin T HDL Cholesterol Arterial Blood Glucose Urine WBC (Auto) Urine Creatinine Urine Total Protein Phenytoin Coronavirus (PCR) Crossmatch 07/27/20 07/27/20 07/27/20 05:36 12:19 17:36 WBC RBC Hgb Hct MCHC RDW Lymph % (Auto) [place] % (Auto) Eos % (Auto) Lymph # [place] # Lymph # (Auto) [place] # (Auto) Eos # (Auto) Seg Neutrophils % Seg Neuts % (Manual) Lymphocytes % (Manual) Seg Neutrophils # Seg Neutrophils # Man Lymphocytes # (Manual) Monocytes % (Manual) Eosinophils % (Manual) Monocytes # (Manual) Eosinophils # (Manual) D-Dimer Heparin Anti-Xa Level ABG pH POC ABG pCO2 POC ABG pO2 ABG pO2 ABG HCO3 ABG O2 Saturation ABG Base Excess ABG Hemoglobin ABG Oxyhemoglobin VBG pH ABG Sodium ABG Potassium ABG Glucose Oxyhemoglobin Sodium 135 L Potassium 5.3 H Chloride Carbon Dioxide 21 L BUN 103 H Creatinine 2.6 H Glucose 113 H POC Glucose 131 H 151 H Lactic Acid Calcium 8.1 L Ferritin AST Alkaline Phosphatase Magnesium Lactate Dehydrogenase Total Creatine Kinase CK-MB (CK-2) C-Reactive Protein Total Protein Albumin Troponin T HDL Cholesterol Arterial Blood Glucose Urine WBC (Auto) Urine Creatinine Urine Total Protein Phenytoin Coronavirus (PCR) Crossmatch 07/27/20 07/28/20 07/28/20 23:29 04:30 04:30 WBC RBC 2.50 L Hgb 7.3 L Hct 22.2 L MCHC RDW 17.3 H Lymph % (Auto) 8.7 L [place] % (Auto) 8.3 H Eos % (Auto) Lymph # [place] # Lymph # (Auto) 0.7 L [place] # (Auto) Eos # (Auto) Seg Neutrophils % 79.1 H Seg Neuts % (Manual) Lymphocytes % (Manual) Seg Neutrophils # Seg Neutrophils # Man Lymphocytes # (Manual) Monocytes % (Manual) Eosinophils % (Manual) Monocytes # (Manual) Eosinophils # (Manual) D-Dimer Heparin Anti-Xa Level ABG pH POC ABG pCO2 POC ABG pO2 ABG pO2 ABG HCO3 ABG O2 Saturation ABG Base Excess ABG Hemoglobin ABG Oxyhemoglobin VBG pH ABG Sodium ABG Potassium ABG Glucose Oxyhemoglobin Sodium 135 L Potassium 5.2 H Chloride 96.8 L Carbon Dioxide 20 L BUN 107 H Creatinine 2.9 H Glucose POC Glucose 124 H Lactic Acid Calcium 8.2 L Ferritin AST Alkaline Phosphatase Magnesium 2.70 H Lactate Dehydrogenase Total Creatine Kinase CK-MB (CK-2) C-Reactive Protein Total Protein Albumin Troponin T HDL Cholesterol Arterial Blood Glucose Urine WBC (Auto) Urine Creatinine Urine Total Protein Phenytoin Coronavirus (PCR) Crossmatch 07/28/20 07/29/20 07/29/20 17:35 00:11 06:45 WBC RBC Hgb Hct MCHC RDW Lymph % (Auto) [place] % (Auto) Eos % (Auto) Lymph # [place] # Lymph # (Auto) [place] # (Auto) Eos # (Auto) Seg Neutrophils % Seg Neuts % (Manual) Lymphocytes % (Manual) Seg Neutrophils # Seg Neutrophils # Man Lymphocytes # (Manual) Monocytes % (Manual) Eosinophils % (Manual) Monocytes # (Manual) Eosinophils # (Manual) D-Dimer Heparin Anti-Xa Level ABG pH POC ABG pCO2 POC ABG pO2 ABG pO2 ABG HCO3 ABG O2 Saturation ABG Base Excess ABG Hemoglobin ABG Oxyhemoglobin VBG pH ABG Sodium ABG Potassium ABG Glucose Oxyhemoglobin Sodium Potassium Chloride Carbon Dioxide BUN Creatinine Glucose POC Glucose 146 H 143 H 179 H Lactic Acid Calcium Ferritin AST Alkaline Phosphatase Magnesium Lactate Dehydrogenase Total Creatine Kinase CK-MB (CK-2) C-Reactive Protein Total Protein Albumin Troponin T HDL Cholesterol Arterial Blood Glucose Urine WBC (Auto) Urine Creatinine Urine Total Protein Phenytoin Coronavirus (PCR) Crossmatch 07/29/20 07/29/20 07/29/20 11:54 13:01 13:01 WBC RBC 2.40 L Hgb 7.1 L Hct 20.9 L MCHC RDW 17.5 H Lymph % (Auto) [place] % (Auto) Eos % (Auto) Lymph # [place] # Lymph # (Auto) [place] # (Auto) Eos # (Auto) Seg Neutrophils % Seg Neuts % (Manual) 86.0 H Lymphocytes % (Manual) 6.0 L Seg Neutrophils # Seg Neutrophils # Man 8.9 H Lymphocytes # (Manual) 0.6 L Monocytes % (Manual) 8.0 H Eosinophils % (Manual) Monocytes # (Manual) Eosinophils # (Manual) D-Dimer Heparin Anti-Xa Level ABG pH POC ABG pCO2 POC ABG pO2 ABG pO2 ABG HCO3 ABG O2 Saturation ABG Base Excess ABG Hemoglobin ABG Oxyhemoglobin VBG pH ABG Sodium ABG Potassium ABG Glucose Oxyhemoglobin Sodium 129 L Potassium Chloride 92.9 L Carbon Dioxide BUN 112 H Creatinine 3.0 H Glucose 142 H POC Glucose 170 H Lactic Acid Calcium 7.9 L Ferritin AST Alkaline Phosphatase Magnesium Lactate Dehydrogenase Total Creatine Kinase CK-MB (CK-2) C-Reactive Protein Total Protein Albumin Troponin T HDL Cholesterol Arterial Blood Glucose Urine WBC (Auto) Urine Creatinine Urine Total Protein Phenytoin Coronavirus (PCR) Crossmatch 07/29/20 07/30/20 07/30/20 22:45 05:01 11:45 WBC RBC Hgb Hct MCHC RDW Lymph % (Auto) [place] % (Auto) Eos % (Auto) Lymph # [place] # Lymph # (Auto) [place] # (Auto) Eos # (Auto) Seg Neutrophils % Seg Neuts % (Manual) Lymphocytes % (Manual) Seg Neutrophils # Seg Neutrophils # Man Lymphocytes # (Manual) Monocytes % (Manual) Eosinophils % (Manual) Monocytes # (Manual) Eosinophils # (Manual) D-Dimer Heparin Anti-Xa Level ABG pH POC ABG pCO2 POC ABG pO2 ABG pO2 ABG HCO3 ABG O2 Saturation ABG Base Excess ABG Hemoglobin ABG Oxyhemoglobin VBG pH ABG Sodium ABG Potassium ABG Glucose Oxyhemoglobin Sodium Potassium Chloride Carbon Dioxide BUN Creatinine Glucose POC Glucose 129 H 150 H 130 H Lactic Acid Calcium Ferritin AST Alkaline Phosphatase Magnesium Lactate Dehydrogenase Total Creatine Kinase CK-MB (CK-2) C-Reactive Protein Total Protein Albumin Troponin T HDL Cholesterol Arterial Blood Glucose Urine WBC (Auto) Urine Creatinine Urine Total Protein Phenytoin Coronavirus (PCR) Crossmatch 07/30/20 07/30/20 07/30/20 17:54 21:26 23:58 WBC RBC Hgb Hct MCHC RDW Lymph % (Auto) [place] % (Auto) Eos % (Auto) Lymph # [place] # Lymph # (Auto) [place] # (Auto) Eos # (Auto) Seg Neutrophils % Seg Neuts % (Manual) Lymphocytes % (Manual) Seg Neutrophils # Seg Neutrophils # Man Lymphocytes # (Manual) Monocytes % (Manual) Eosinophils % (Manual) Monocytes # (Manual) Eosinophils # (Manual) D-Dimer Heparin Anti-Xa Level ABG pH POC ABG pCO2 POC ABG pO2 ABG pO2 ABG HCO3 ABG O2 Saturation ABG Base Excess ABG Hemoglobin ABG Oxyhemoglobin VBG pH ABG Sodium ABG Potassium ABG Glucose Oxyhemoglobin Sodium Potassium Chloride Carbon Dioxide BUN Creatinine Glucose POC Glucose 143 H 124 H 142 H Lactic Acid Calcium Ferritin AST Alkaline Phosphatase Magnesium Lactate Dehydrogenase Total Creatine Kinase CK-MB (CK-2) C-Reactive Protein Total Protein Albumin Troponin T HDL Cholesterol Arterial Blood Glucose Urine WBC (Auto) Urine Creatinine Urine Total Protein Phenytoin Coronavirus (PCR) Crossmatch 07/31/20 07/31/20 07/31/20 05:43 11:35 18:07 WBC RBC Hgb Hct MCHC RDW Lymph % (Auto) [place] % (Auto) Eos % (Auto) Lymph # [place] # Lymph # (Auto) [place] # (Auto) Eos # (Auto) Seg Neutrophils % Seg Neuts % (Manual) Lymphocytes % (Manual) Seg Neutrophils # Seg Neutrophils # Man Lymphocytes # (Manual) Monocytes % (Manual) Eosinophils % (Manual) Monocytes # (Manual) Eosinophils # (Manual) D-Dimer Heparin Anti-Xa Level ABG pH POC ABG pCO2 POC ABG pO2 ABG pO2 ABG HCO3 ABG O2 Saturation ABG Base Excess ABG Hemoglobin ABG Oxyhemoglobin VBG pH ABG Sodium ABG Potassium ABG Glucose Oxyhemoglobin Sodium Potassium Chloride Carbon Dioxide BUN Creatinine Glucose POC Glucose 152 H 179 H 129 H Lactic Acid Calcium Ferritin AST Alkaline Phosphatase Magnesium Lactate Dehydrogenase Total Creatine Kinase CK-MB (CK-2) C-Reactive Protein Total Protein Albumin Troponin T HDL Cholesterol Arterial Blood Glucose Urine WBC (Auto) Urine Creatinine Urine Total Protein Phenytoin Coronavirus (PCR) Crossmatch 07/31/20 07/31/20 08/01/20 21:30 22:12 00:25 WBC RBC Hgb Hct MCHC RDW Lymph % (Auto) [place] % (Auto) Eos % (Auto) Lymph # [place] # Lymph # (Auto) [place] # (Auto) Eos # (Auto) Seg Neutrophils % Seg Neuts % (Manual) Lymphocytes % (Manual) Seg Neutrophils # Seg Neutrophils # Man Lymphocytes # (Manual) Monocytes % (Manual) Eosinophils % (Manual) Monocytes # (Manual) Eosinophils # (Manual) D-Dimer Heparin Anti-Xa Level ABG pH POC ABG pCO2 POC ABG pO2 ABG pO2 ABG HCO3 ABG O2 Saturation ABG Base Excess ABG Hemoglobin ABG Oxyhemoglobin VBG pH ABG Sodium ABG Potassium ABG Glucose Oxyhemoglobin Sodium Potassium Chloride Carbon Dioxide BUN Creatinine Glucose POC Glucose 143 H 122 H 134 H Lactic Acid Calcium Ferritin AST Alkaline Phosphatase Magnesium Lactate Dehydrogenase Total Creatine Kinase CK-MB (CK-2) C-Reactive Protein Total Protein Albumin Troponin T HDL Cholesterol Arterial Blood Glucose Urine WBC (Auto) Urine Creatinine Urine Total Protein Phenytoin Coronavirus (PCR) Crossmatch 08/01/20 08/01/20 08/01/20 04:43 05:41 12:23 WBC RBC Hgb Hct MCHC RDW Lymph % (Auto) [place] % (Auto) Eos % (Auto) Lymph # [place] # Lymph # (Auto) [place] # (Auto) Eos # (Auto) Seg Neutrophils % Seg Neuts % (Manual) Lymphocytes % (Manual) Seg Neutrophils # Seg Neutrophils # Man Lymphocytes # (Manual) Monocytes % (Manual) Eosinophils % (Manual) Monocytes # (Manual) Eosinophils # (Manual) D-Dimer Heparin Anti-Xa Level ABG pH POC ABG pCO2 POC ABG pO2 ABG pO2 ABG HCO3 ABG O2 Saturation ABG Base Excess ABG Hemoglobin ABG Oxyhemoglobin VBG pH ABG Sodium ABG Potassium ABG Glucose Oxyhemoglobin Sodium 128 L Potassium 5.8 H Chloride 90.5 L Carbon Dioxide 19 L BUN 122 H Creatinine 3.4 H Glucose 124 H POC Glucose 130 H 128 H Lactic Acid Calcium 8.0 L Ferritin AST Alkaline Phosphatase Magnesium Lactate Dehydrogenase Total Creatine Kinase CK-MB (CK-2) C-Reactive Protein Total Protein Albumin Troponin T HDL Cholesterol Arterial Blood Glucose Urine WBC (Auto) Urine Creatinine Urine Total Protein Phenytoin Coronavirus (PCR) Crossmatch 08/01/20 08/02/20 08/02/20 17:28 00:06 05:32 WBC RBC Hgb Hct MCHC RDW Lymph % (Auto) [place] % (Auto) Eos % (Auto) Lymph # [place] # Lymph # (Auto) [place] # (Auto) Eos # (Auto) Seg Neutrophils % Seg Neuts % (Manual) Lymphocytes % (Manual) Seg Neutrophils # Seg Neutrophils # Man Lymphocytes # (Manual) Monocytes % (Manual) Eosinophils % (Manual) Monocytes # (Manual) Eosinophils # (Manual) D-Dimer Heparin Anti-Xa Level ABG pH POC ABG pCO2 POC ABG pO2 ABG pO2 ABG HCO3 ABG O2 Saturation ABG Base Excess ABG Hemoglobin ABG Oxyhemoglobin VBG pH ABG Sodium ABG Potassium ABG Glucose Oxyhemoglobin Sodium Potassium Chloride Carbon Dioxide BUN Creatinine Glucose POC Glucose 121 H 128 H 177 H Lactic Acid Calcium Ferritin AST Alkaline Phosphatase Magnesium Lactate Dehydrogenase Total Creatine Kinase CK-MB (CK-2) C-Reactive Protein Total Protein Albumin Troponin T HDL Cholesterol Arterial Blood Glucose Urine WBC (Auto) Urine Creatinine Urine Total Protein Phenytoin Coronavirus (PCR) Crossmatch 08/02/20 08/02/20 08/03/20 11:25 12:34 00:08 WBC RBC Hgb Hct MCHC RDW Lymph % (Auto) [place] % (Auto) Eos % (Auto) Lymph # [place] # Lymph # (Auto) [place] # (Auto) Eos # (Auto) Seg Neutrophils % Seg Neuts % (Manual) Lymphocytes % (Manual) Seg Neutrophils # Seg Neutrophils # Man Lymphocytes # (Manual) Monocytes % (Manual) Eosinophils % (Manual) Monocytes # (Manual) Eosinophils # (Manual) D-Dimer Heparin Anti-Xa Level ABG pH 7.344 L POC ABG pCO2 POC ABG pO2 ABG pO2 101.1 H ABG HCO3 ABG O2 Saturation ABG Base Excess -4.5 L ABG Hemoglobin 6.6 L ABG Oxyhemoglobin VBG pH ABG Sodium ABG Potassium ABG Glucose Oxyhemoglobin Sodium Potassium Chloride Carbon Dioxide BUN Creatinine Glucose POC Glucose 196 H 141 H Lactic Acid Calcium Ferritin AST Alkaline Phosphatase Magnesium Lactate Dehydrogenase Total Creatine Kinase CK-MB (CK-2) C-Reactive Protein Total Protein Albumin Troponin T HDL Cholesterol Arterial Blood Glucose Urine WBC (Auto) Urine Creatinine Urine Total Protein Phenytoin Coronavirus (PCR) Crossmatch 08/03/20 08/03/20 08/03/20 04:38 04:38 04:38 WBC 14.3 H RBC 2.42 L Hgb 7.0 L Hct 21.5 L MCHC RDW 18.1 H Lymph % (Auto) [place] % (Auto) Eos % (Auto) Lymph # [place] # Lymph # (Auto) [place] # (Auto) Eos # (Auto) Seg Neutrophils % Seg Neuts % (Manual) Lymphocytes % (Manual) Seg Neutrophils # Seg Neutrophils # Man Lymphocytes # (Manual) Monocytes % (Manual) Eosinophils % (Manual) Monocytes # (Manual) Eosinophils # (Manual) D-Dimer Heparin Anti-Xa Level ABG pH POC ABG pCO2 POC ABG pO2 ABG pO2 ABG HCO3 ABG O2 Saturation ABG Base Excess ABG Hemoglobin ABG Oxyhemoglobin VBG pH ABG Sodium ABG Potassium ABG Glucose Oxyhemoglobin Sodium 130 L Potassium Chloride 90.1 L Carbon Dioxide 20 L BUN 105 H Creatinine 3.1 H Glucose 115 H POC Glucose Lactic Acid 0.40 L Calcium 8.2 L Ferritin AST Alkaline Phosphatase Magnesium Lactate Dehydrogenase Total Creatine Kinase CK-MB (CK-2) C-Reactive Protein Total Protein Albumin Troponin T HDL Cholesterol Arterial Blood Glucose Urine WBC (Auto) Urine Creatinine Urine Total Protein Phenytoin Coronavirus (PCR) Crossmatch 08/03/20 08/03/20 08/03/20 05:33 12:04 17:51 WBC RBC Hgb Hct MCHC RDW Lymph % (Auto) [place] % (Auto) Eos % (Auto) Lymph # [place] # Lymph # (Auto) [place] # (Auto) Eos # (Auto) Seg Neutrophils % Seg Neuts % (Manual) Lymphocytes % (Manual) Seg Neutrophils # Seg Neutrophils # Man Lymphocytes # (Manual) Monocytes % (Manual) Eosinophils % (Manual) Monocytes # (Manual) Eosinophils # (Manual) D-Dimer Heparin Anti-Xa Level ABG pH POC ABG pCO2 POC ABG pO2 ABG pO2 ABG HCO3 ABG O2 Saturation ABG Base Excess ABG Hemoglobin ABG Oxyhemoglobin VBG pH ABG Sodium ABG Potassium ABG Glucose Oxyhemoglobin Sodium Potassium Chloride Carbon Dioxide BUN Creatinine Glucose POC Glucose 117 H 115 H 123 H Lactic Acid Calcium Ferritin AST Alkaline Phosphatase Magnesium Lactate Dehydrogenase Total Creatine Kinase CK-MB (CK-2) C-Reactive Protein Total Protein Albumin Troponin T HDL Cholesterol Arterial Blood Glucose Urine WBC (Auto) Urine Creatinine Urine Total Protein Phenytoin Coronavirus (PCR) Crossmatch 08/03/20 08/04/20 08/04/20 23:25 01:41 05:34 WBC RBC 2.20 L Hgb 6.5 L Hct 19.5 L* MCHC RDW 18.5 H Lymph % (Auto) 9.2 L [place] % (Auto) 9.8 H Eos % (Auto) Lymph # [place] # Lymph # (Auto) 0.8 L [place] # (Auto) Eos # (Auto) Seg Neutrophils % 77.7 H Seg Neuts % (Manual) Lymphocytes % (Manual) Seg Neutrophils # Seg Neutrophils # Man Lymphocytes # (Manual) Monocytes % (Manual) Eosinophils % (Manual) Monocytes # (Manual) Eosinophils # (Manual) D-Dimer Heparin Anti-Xa Level ABG pH POC ABG pCO2 POC ABG pO2 ABG pO2 ABG HCO3 ABG O2 Saturation ABG Base Excess ABG Hemoglobin ABG Oxyhemoglobin VBG pH ABG Sodium ABG Potassium ABG Glucose Oxyhemoglobin Sodium Potassium Chloride Carbon Dioxide BUN Creatinine Glucose POC Glucose 122 H 112 H Lactic Acid Calcium Ferritin AST Alkaline Phosphatase Magnesium Lactate Dehydrogenase Total Creatine Kinase CK-MB (CK-2) C-Reactive Protein Total Protein Albumin Troponin T HDL Cholesterol Arterial Blood Glucose Urine WBC (Auto) Urine Creatinine Urine Total Protein Phenytoin Coronavirus (PCR) Crossmatch 08/04/20 08/04/20 08/05/20 12:19 17:42 00:25 WBC RBC Hgb Hct MCHC RDW Lymph % (Auto) [place] % (Auto) Eos % (Auto) Lymph # [place] # Lymph # (Auto) [place] # (Auto) Eos # (Auto) Seg Neutrophils % Seg Neuts % (Manual) Lymphocytes % (Manual) Seg Neutrophils # Seg Neutrophils # Man Lymphocytes # (Manual) Monocytes % (Manual) Eosinophils % (Manual) Monocytes # (Manual) Eosinophils # (Manual) D-Dimer Heparin Anti-Xa Level ABG pH POC ABG pCO2 POC ABG pO2 ABG pO2 ABG HCO3 ABG O2 Saturation ABG Base Excess ABG Hemoglobin ABG Oxyhemoglobin VBG pH ABG Sodium ABG Potassium ABG Glucose Oxyhemoglobin Sodium Potassium Chloride Carbon Dioxide BUN Creatinine Glucose POC Glucose 108 H 113 H 119 H Lactic Acid Calcium Ferritin AST Alkaline Phosphatase Magnesium Lactate Dehydrogenase Total Creatine Kinase CK-MB (CK-2) C-Reactive Protein Total Protein Albumin Troponin T HDL Cholesterol Arterial Blood Glucose Urine WBC (Auto) Urine Creatinine Urine Total Protein Phenytoin Coronavirus (PCR) Crossmatch 08/05/20 08/05/20 08/05/20 05:24 05:35 05:35 WBC RBC 2.13 L Hgb 6.2 L Hct 18.9 L* MCHC RDW 18.7 H Lymph % (Auto) 10.0 L [place] % (Auto) 8.5 H Eos % (Auto) Lymph # [place] # Lymph # (Auto) 0.8 L [place] # (Auto) Eos # (Auto) Seg Neutrophils % 78.1 H Seg Neuts % (Manual) Lymphocytes % (Manual) Seg Neutrophils # Seg Neutrophils # Man Lymphocytes # (Manual) Monocytes % (Manual) Eosinophils % (Manual) Monocytes # (Manual) Eosinophils # (Manual) D-Dimer Heparin Anti-Xa Level ABG pH POC ABG pCO2 POC ABG pO2 ABG pO2 ABG HCO3 ABG O2 Saturation ABG Base Excess ABG Hemoglobin ABG Oxyhemoglobin VBG pH ABG Sodium ABG Potassium ABG Glucose Oxyhemoglobin Sodium 135 L Potassium Chloride 96.3 L Carbon Dioxide BUN 89 H Creatinine 2.8 H Glucose 116 H POC Glucose 138 H Lactic Acid Calcium 7.5 L Ferritin AST 53 H Alkaline Phosphatase 501 H Magnesium Lactate Dehydrogenase Total Creatine Kinase CK-MB (CK-2) C-Reactive Protein Total Protein 6.1 L Albumin 2.2 L Troponin T HDL Cholesterol Arterial Blood Glucose Urine WBC (Auto) Urine Creatinine Urine Total Protein Phenytoin Coronavirus (PCR) Crossmatch 08/05/20 08/05/20 08/05/20 09:15 12:17 18:00 WBC RBC Hgb Hct MCHC RDW Lymph % (Auto) [place] % (Auto) Eos % (Auto) Lymph # [place] # Lymph # (Auto) [place] # (Auto) Eos # (Auto) Seg Neutrophils % Seg Neuts % (Manual) Lymphocytes % (Manual) Seg Neutrophils # Seg Neutrophils # Man Lymphocytes # (Manual) Monocytes % (Manual) Eosinophils % (Manual) Monocytes # (Manual) Eosinophils # (Manual) D-Dimer Heparin Anti-Xa Level ABG pH POC ABG pCO2 POC ABG pO2 ABG pO2 ABG HCO3 ABG O2 Saturation ABG Base Excess ABG Hemoglobin ABG Oxyhemoglobin VBG pH ABG Sodium ABG Potassium ABG Glucose Oxyhemoglobin Sodium Potassium Chloride Carbon Dioxide BUN Creatinine Glucose POC Glucose 126 H 143 H Lactic Acid Calcium Ferritin AST Alkaline Phosphatase Magnesium Lactate Dehydrogenase Total Creatine Kinase CK-MB (CK-2) C-Reactive Protein Total Protein Albumin Troponin T HDL Cholesterol Arterial Blood Glucose Urine WBC (Auto) Urine Creatinine Urine Total Protein Phenytoin Coronavirus (PCR) Crossmatch See Detail 08/06/20 08/06/20 08/07/20 00:50 04:30 04:40 WBC RBC 2.43 L 2.48 L Hgb 7.2 L 7.4 L Hct 21.7 L 22.1 L MCHC RDW 18.1 H 18.1 H Lymph % (Auto) 9.9 L 11.7 L [place] % (Auto) 10.5 H 8.6 H Eos % (Auto) Lymph # [place] # Lymph # (Auto) 0.7 L 0.9 L [place] # (Auto) Eos # (Auto) Seg Neutrophils % 75.1 H 76.1 H Seg Neuts % (Manual) Lymphocytes % (Manual) Seg Neutrophils # Seg Neutrophils # Man Lymphocytes # (Manual) Monocytes % (Manual) Eosinophils % (Manual) Monocytes # (Manual) Eosinophils # (Manual) D-Dimer Heparin Anti-Xa Level ABG pH POC ABG pCO2 POC ABG pO2 ABG pO2 ABG HCO3 ABG O2 Saturation ABG Base Excess ABG Hemoglobin ABG Oxyhemoglobin VBG pH ABG Sodium ABG Potassium ABG Glucose Oxyhemoglobin Sodium Potassium Chloride Carbon Dioxide BUN Creatinine Glucose POC Glucose 117 H Lactic Acid Calcium Ferritin AST Alkaline Phosphatase Magnesium Lactate Dehydrogenase Total Creatine Kinase CK-MB (CK-2) C-Reactive Protein Total Protein Albumin Troponin T HDL Cholesterol Arterial Blood Glucose Urine WBC (Auto) Urine Creatinine Urine Total Protein Phenytoin Coronavirus (PCR) Crossmatch 08/07/20 08/07/20 08/08/20 05:44 06:00 00:03 WBC RBC Hgb Hct MCHC RDW Lymph % (Auto) [place] % (Auto) Eos % (Auto) Lymph # [place] # Lymph # (Auto) [place] # (Auto) Eos # (Auto) Seg Neutrophils % Seg Neuts % (Manual) Lymphocytes % (Manual) Seg Neutrophils # Seg Neutrophils # Man Lymphocytes # (Manual) Monocytes % (Manual) Eosinophils % (Manual) Monocytes # (Manual) Eosinophils # (Manual) D-Dimer Heparin Anti-Xa Level ABG pH POC ABG pCO2 POC ABG pO2 ABG pO2 ABG HCO3 ABG O2 Saturation ABG Base Excess ABG Hemoglobin ABG Oxyhemoglobin VBG pH ABG Sodium ABG Potassium ABG Glucose Oxyhemoglobin Sodium 132 L Potassium 3.3 L Chloride 92.8 L Carbon Dioxide BUN 64 H Creatinine 2.4 H Glucose POC Glucose 58 L 125 H Lactic Acid Calcium 7.0 L Ferritin AST Alkaline Phosphatase Magnesium Lactate Dehydrogenase Total Creatine Kinase CK-MB (CK-2) C-Reactive Protein Total Protein Albumin Troponin T HDL Cholesterol Arterial Blood Glucose Urine WBC (Auto) Urine Creatinine Urine Total Protein Phenytoin Coronavirus (PCR) Crossmatch 08/08/20 08/08/20 08/08/20 12:58 15:00 15:00 WBC RBC 2.36 L Hgb 7.1 L Hct 21.4 L MCHC RDW 18.3 H Lymph % (Auto) [place] % (Auto) Eos % (Auto) Lymph # [place] # Lymph # (Auto) [place] # (Auto) Eos # (Auto) Seg Neutrophils % Seg Neuts % (Manual) Lymphocytes % (Manual) Seg Neutrophils # Seg Neutrophils # Man Lymphocytes # (Manual) Monocytes % (Manual) Eosinophils % (Manual) Monocytes # (Manual) Eosinophils # (Manual) D-Dimer Heparin Anti-Xa Level ABG pH POC ABG pCO2 POC ABG pO2 ABG pO2 ABG HCO3 ABG O2 Saturation ABG Base Excess ABG Hemoglobin ABG Oxyhemoglobin VBG pH ABG Sodium ABG Potassium ABG Glucose Oxyhemoglobin Sodium Potassium Chloride Carbon Dioxide BUN Creatinine Glucose POC Glucose 134 H Lactic Acid Calcium Ferritin AST Alkaline Phosphatase Magnesium Lactate Dehydrogenase Total Creatine Kinase CK-MB (CK-2) C-Reactive Protein Total Protein Albumin Troponin T HDL Cholesterol Arterial Blood Glucose Urine WBC (Auto) Urine Creatinine Urine Total Protein Phenytoin 4.7 L Coronavirus (PCR) Crossmatch 08/08/20 08/08/20 08/09/20 15:00 17:39 00:00 WBC RBC Hgb Hct MCHC RDW Lymph % (Auto) [place] % (Auto) Eos % (Auto) Lymph # [place] # Lymph # (Auto) [place] # (Auto) Eos # (Auto) Seg Neutrophils % Seg Neuts % (Manual) Lymphocytes % (Manual) Seg Neutrophils # Seg Neutrophils # Man Lymphocytes # (Manual) Monocytes % (Manual) Eosinophils % (Manual) Monocytes # (Manual) Eosinophils # (Manual) D-Dimer Heparin Anti-Xa Level ABG pH POC ABG pCO2 POC ABG pO2 ABG pO2 ABG HCO3 ABG O2 Saturation ABG Base Excess ABG Hemoglobin ABG Oxyhemoglobin VBG pH ABG Sodium ABG Potassium ABG Glucose Oxyhemoglobin Sodium 130 L Potassium 3.1 L Chloride 91.5 L Carbon Dioxide BUN 52 H Creatinine 2.3 H Glucose 135 H POC Glucose 131 H 129 H Lactic Acid Calcium 7.3 L Ferritin AST Alkaline Phosphatase Magnesium Lactate Dehydrogenase Total Creatine Kinase CK-MB (CK-2) C-Reactive Protein Total Protein Albumin Troponin T HDL Cholesterol Arterial Blood Glucose Urine WBC (Auto) Urine Creatinine Urine Total Protein Phenytoin Coronavirus (PCR) Crossmatch 08/09/20 08/09/20 05:05 07:49 WBC RBC Hgb Hct MCHC RDW Lymph % (Auto) [place] % (Auto) Eos % (Auto) Lymph # [place] # Lymph # (Auto) [place] # (Auto) Eos # (Auto) Seg Neutrophils % Seg Neuts % (Manual) Lymphocytes % (Manual) Seg Neutrophils # Seg Neutrophils # Man Lymphocytes # (Manual) Monocytes % (Manual) Eosinophils % (Manual) Monocytes # (Manual) Eosinophils # (Manual) D-Dimer Heparin Anti-Xa Level ABG pH POC ABG pCO2 POC ABG pO2 ABG pO2 ABG HCO3 ABG O2 Saturation ABG Base Excess ABG Hemoglobin ABG Oxyhemoglobin VBG pH ABG Sodium ABG Potassium ABG Glucose Oxyhemoglobin Sodium 130 L Potassium Chloride 90.1 L Carbon Dioxide BUN 56 H Creatinine 2.4 H Glucose 104 H POC Glucose 111 H Lactic Acid Calcium 7.4 L Ferritin AST Alkaline Phosphatase Magnesium Lactate Dehydrogenase Total Creatine Kinase CK-MB (CK-2) C-Reactive Protein Total Protein Albumin Troponin T HDL Cholesterol Arterial Blood Glucose Urine WBC (Auto) Urine Creatinine Urine Total Protein Phenytoin Coronavirus (PCR) Crossmatch Allied health notes reviewed: RT
--- NOTE | 2020-08-09 18:01 | Progress Note ---
Assessment and Plan --Acute hypoxemic respiratory failure; vent dependent intubated on admission, extubated on 06/12/20 then placed on high flow o2 patient developed another respiratory arrest on 06/26 - reintubated Patient not tolerating weaning parameters CC following, Surgery evaluated the patient for trach and PEG COVID-19 test negative today, trach and PEG pending --s/p cardiopulmonary arrest on admission, 06/26 and 07/01, EF 45-50% on 2d echo, medical Mx per cardiology -- Acute toxic metabolic encephalopathy, POA likely from sepsis and s/p cardiac arrest with possible anoxic injury now with renal failure EEG showed diffuse slowing CT head showed chronic changes, no acute infract -- Acute renal failure: Worsening BUN/creatinine 123/3.4 > 105/3.1 avoid nephrotoxins, Nephrology note reviewed Status post right femoral vascular catheter placement started on hemodialysis Discussed with Dr. Koehler Last HD performed on 08/07. per renal hold HD over the weekend and monitor renal parameters. volume control with IV lasix 80mg bid. Patient is a poor candidate for long term HD, given her overall poor prognosis, anoxic brain injury s/p cardiac arrest. --Bradycardia Patient is on dopamine and epinephrine for bradycardia beta-hugh discontinued, Heart rate is in the 60s to 70s -- Hypertension; well controlled Continue amlodipine, clonidine and hydralazine and minoxidil, closely monitor blood pressures --Anoxic brain injury, neurology consulted, neuro requested MRI brain, EEG MRI brain could not be done due to body habitus, --Seizures seizure precautions; continue Keppra, and Dilantin EEG showed epileptiform discharges per review of neurology note --Rectal bleeding; resolved --Acute blood loss anemia; total 4 units PRBC transfused monitor H&H, GI following, no plans of endoscopy --Severe sepsis; completed antibiotics per ID persistently positive for COVID-19 and treated for Klebsiella pneumoniae --COVID-19 b/l PNA Completed remdesivir on 06/02 Completed dexamethasone - Last dose 06/07 COVID 19 test positive x 3 during this admission --Superficial left cephalic vein DVT/elevated D-dimers[COVID 19] Patient initially started on heparin drip from 05/29/20 D-dimers improved [id number] treated with Eliquis 5 mg twice a day for 1 week[per ID] stop date 06/26/2020 --Klebsiella pneumonia: ID evaluated completed second round of 5 days of cefepime on 07/04/2020 --Acute on chronic systolic heart failure Cardiology following. Ef 45% --Transaminitis. Etiology likely from COVID-19. cont to monitor --Hyperkalemia; improved --Hyponatremia Monitor electrolytes, now on HD --Shock; resolved -- DVT prophylaxis Eliquis, SCD to bilateral lower extremities while in bed -- Advance care planning Patient is critically ill with multiple medical problems Poor prognosis, family updated and patient is full code per family request The high probability of a clinically significant, sudden or life threatening deterioration of the [[employer], CVS, renal] system(s) required my full and direct attention, intervention and personal management. The aggregate critical care time was [34] minutes. This time is in addition to time spent performing reported procedures but includes the following: [x] Data Review and interpretation [x] Patient assessment and monitoring of vital signs [x] Documentation [x] Medication orders and management Brief History: 64 YO Female with a medical history of HTN, Diastolic CHF, Pulmonary HTN, DM, Obesity Hypoventilation Syndrome presents to ED for evaluation of shortness of breath. As per staff, the EMS was notified for difficulty breathing. Upon arrival to the patient's home the patient was found to be in distress and was subsequently transported to [facility] for further evaluation and care. In route to [facility] the patient developed cardiac arrest and was treated in accordance with ACLS protocol with return of ROSC. Patient was seen and evaluated in the emergency department and was intubated and placed on ventilatory support. Patient admitted to ICU. Critical care team consulted in ED. She was found to have COVID-19 infection and was started on steroids and remdesivir. ID was consulted. Cardiology was consulted for her systolic heart failure and cardiac arrest. Patient completed treatment for COVID-19, then develop superimposed bacterial pneumonia with Klebsiella. She is now extubated, 06/12/2020 but remains confused and requiring high flow O2 and intermittent BiPAP. Patient had another cardiac arrest reintubated 06/26/2020, currently in ICU vent dependent, unable to do trach and PEG due to persistent COVID-19 positive state, as well as anoxic brain injury, unable to get MRI , neurology following. 05/28/2020 COVID-19 test positive 06/29/2020 COVID-19 test positive 07/14/2020 COVID-19 test positive 08/09/20 COVID 19 negative 06/01. Patient remains intubated and on ventilatory support today. Patient has multiple organ system failure and has poor prognosis. Patient did not experience significant medical decompensation overnight but no improvement with current therapy. 06/02. Remains intubated. her BP is elevated. Started on nicardipine drip. Cardiology following. 06/03-06/04. BP is better. Hb stable. Completed remdesivir. ID , Cardiology and Critical care team on board 06/05. Bump in creatinine. I/O reviewed. Nephrology consulted. 06/06. Has slight improvement in renal function. Nephrology on board. On SBT today. Vitals stable. 06/07. Stable renal function. No need for HD as per nephrology. She is making urine. Plan for SBT. 06/08. Off sedation and very lethargic. Her BUN is going up - effect of steroids vs GI bleed. Her hemoglobin remains stable. Will check stool guaiac. Nephrology is following. WBC bumped to 16 today. 06/09: remains intubated, wbc trended up, Cr slightly trending down. cont TF, wean off vent as tolerated. 06/10: Cr trending down, cont to wean off vent as tolerated. 06/10; Cr much improved, cont iv fluid, tolerating tube feeding. stopped vac, iv cefepime for total 10 days. 06/11; creatinine 1.5 today, sodium level has normalized. Continue tube feeding, continue cefepime for 10 days. Continue to wean off as tolerated. 06/12: planned for extubation today 06/13: extubated yesterday, now on Bipap 06/14: patient on Bipap, remains on TF, restraint. cont to follow clinically 06/15: patient on high flow O2,remains on TF, restraint. cont to follow clinically. transfer to IM 06/16: Patient remains on high flow O2, intermittently on BiPAP. Tolerating tube feeding. cont to monitor at IMCU 06/17; patient on BiPAP. Remains confused and on tube feeding. Continue to monitor at IMCU. Wean off O2 as tolerated. 06/18; patient feels slightly better on high flow oxygen, minimally communica tive, stable to be transferred out of [facility] to telemetry 06/20; remains hypoxic on high flow oxygen, today noncommunicative sleeping all the time, vital signs noted 06/21; more alert and awake confused at times and pulling, restraint for safety, on high flow oxygen We will request physical therapy once more stable 06/22; PT unable to assess due to safety concerns, remains hypoxic on high flow oxygen, BiPAP at night. minimally communicative 06/23: Remains on high flow O2, order for speech eval, continue tube feeding. Creatinine noted to be elevated today -2.4, increase IV fluid hydration. 06/24: Kidney function started worsening 06/23 -likely from hypotension. patient had episodes of hypotension on 06/22. Kidney function is unchanged from yesterday. No further episodes of hypotension. Follow-up electrolytes and renal function. patient remains on high flow O2 06/25: patient on 15L o2 with n/c. on Bipap at night. follow renal function and follow bmp . Placement not possible as patient unfunded. wean off o2 as tolerated. 06/26: hb 6.9 today, transfuse one unit. wean off from O2 as tolerated. check stool for occult blood. consult GI if stool is positive for blood. 06/27; Code blue called yesterday. ACLS initiated, Pt found to have Asystolic Arrest with eventual return of perfusing cardiac rhythm. patient reintubated during code, transferred to ICU, called family and updated 06/28: Patient is spiking fever, started on empiric antibiotic, ordered blood urine and sputum culture. We will reconsult ID. Discussed with patient's son in the evening. Family wants to continue full CODE STATUS. Discussed with critical care attending and RN in length. 06/29: Repeat COVID-19 test is positive. Patient remains on ventilator, continue tube feeding diet. Renal function stable, H&H stable. GI recommendation appreciated -no plan for endoscopy now as there is no active bleeding. 06/30: Renal function improving, patient remains positive for COVID. Tolerating tube feeding, wean off vent as tolerated. Patient remains with poor prognosis but 07/01: Remains intubated, continue to wean off as tolerated, continue antibiotic for Klebsiella pneumoniae. COVID-19 reordered on 06/29 and came as positive. ID following, pulmonary critical care following. Poor prognosis, family wants to continue full code. 07/05; patient has significant drop in H&H, hemoglobin today is 6.9, heme positive stool, type and cross transfuse 2 units of PRBC GI following, no plans of endoscopy 07/06; status post 2 units PRBC transfusion yesterday, Hb improved to 7.7. Monitor H&H transfuse additional PRBC as needed Remains intubated on vent, wean as tolerated and extubate 07/07; Hb dropped to 7.7-6.8, no new episodes of bleeding, transfuse additional 1 unit PRBC today Closely monitor H&H, worsening renal function, hyperkalemia, calcium chloride Kayexalate, gentle hydration, reconsult nephrology 07/08: Patient not tolerating weaning parameters, if unable to wean may need trach and PEG, patient critically ill poor prognosis 07/09; patient remains intubated, trial of CPAP, will closely monitor wean as tolerated and extubate, 07/10: Remains intubated, wean as tolerated and extubate, if unable to wean may need trach and PEG 07/11/2020. Patient currently on mechanical ventilation AC/PRVC with rate of 12, tidal volume 450, FiO2 30% and PEEP of 6 07/12/2020. Patient placed on CPAP with pressure support of 10 and tolerating well. Continue PSB trials as tolerated. 07/13/2020. Patient currently with AC mode rate 12, tidal volume 450, FiO2 30% and PEEP of 6. Surgery has been consulted for trach and PEG placement. Recall nephrology for renal insufficiency. 07/14/20; surgery evaluated for trach and PEG , pending call with test which is is positive today COVID-19 test positive x3 since admission 07/16; trach and PEG pending neuro evaluation 07/17; vent dependent, trach PEG pending neuro evaluation, pending MRI EEG study[already ordered] 07/18; unable to do MRI, due to body habitus, morbid obesity, radiology consult Patient critically ill very poor prognosis 07/19; remains intubated on vent, clinically no change 07/20; unable to wean, needs trach and PEG, need MRI , unable to do due to body habitus 07/21; clinically no change, remains intubated on ventilatory support 07/22; I recommend family meeting, to discuss the goals of treatment, discussed with case management 07/23; patient's blood pressures in the lower range, will hold antihypertensives, fluid bolus, if no improvement Levophed per protocol 07/24: Patient remains critically ill, unable to obtain MRI at this facility and unstable for transfer, Will reconsult Nephrology as creatinine now worse, with worsening Hypotension and Hyperkalemia- Overnight the patient required pressors Secondary to Hypotension, Will place PICC line. Will give kayxalate, continue to hold all BP meds. Hyponatermia improving. 07/24; patient remains to critically ill, nephrology consult appreciated, creatinine is worsening. Hypotension resolved with. Still patient is hypernatremic 07/26; patient is hypertensive and her blood pressure medications were resumed and as needed medications also started. Patient is being followed by nephrology for hyponatremia and AVANI. Patient has anemia. We will check labs in the morning. 07/27; patient is still intubated and on mechanical ventilation. Followed by pulmonary critical care. Nephrology is considering to dialyze the patient after discussing with the family. 07/28; patient is intubated and on mechanical ventilation, patient is nonresponsive without pressors. Creatinine is trending up and nephrology is considering to dialysis. I called her son Toño at [phone] and discussed about the prognosis of the patient and I gave the option of hospice care/withdraw care and he said he is going to talk to his sister and will get back to me. 07/29/2020;patient is intubated and on mechanical ventilation, patient is nonresponsive without pressors. Creatinine is trending up and nephrology is considering to dialysis. I called her son Toño on 07/28 at [phone] and discussed about the prognosis of the patient and I gave the option of hospice care/withdraw care and he said he is going to talk to his sister and will get back to me. Nephrology discussed with the son this morning and the son said he want aggressive management and she is going to be started on dialysis. 07/30; patient's son wants hospice. Declined dialysis. 07/31; plan was to send the patient to hospice but her son does not want to sign AND. Family declined dialysis. Going to talk to the son. 08/01; plans to send the patient to hospice. Patient does not want to sign AND. We called him back but he did not answer. 08/02 intubated, unresponsive, all interdisciplinary notes reviewed, apparently patient's family opted for dialysis, all interdisciplinary notes reviewed 08/03 remains intubated, unresponsive, status post right femoral vein vascular catheter placement, scheduled for hemodialysis today, lab results reviewed. Patient's NG tube feedings are on hold as the patient apparently developed emesis with questionable fecal odor. Patient is now on NG tube to low intermittent suction. 08/04: TF on hold. CT abdomen/pelvis yesterday showed no obstruction, cont to monitor. follow BMP, HD as needed 08/05: plan to resume TF, discussed with nephrology - plan to continue HD temporarily. cont to monitor BMP. patient remains unresponsive, family wish to continue aggressive care and full code status 08/06: started on TF at low rate, cont supportive care. CM to arrange family meeting to address goal of care with family. 08/07: discussed with daughter and son in a family meeting with nephrology, CM, RN and e commerce merchant. patient has very poor prognosis and recommended hospice by nephrology and by me, family will discuss the option for hospice among themselves again. cont supportive care for now. 08/08: order CT head today. tolerating TF. continue supportive care. wean off vent as tolerated. family still didnot decided for hospice. 08/09: cont supportive care, wean off vent as tolerated. cont TF. waiting on family for DNR and hospice decision Subjective Date of service: 08/09/20 Principal diagnosis: Ac hypoxemic resp failure; COVID-19; pneumonia; CHF; Pulm HTN; OHS; DM II Interval history: Patient seen and examined Vitals reviewed, intubated, remains unresponsive Discussed with RN at the bedside covid test is negative Objective - Exam Narrative Exam: General appearance: Present: obese (Morbidly obese), other (intubated) - EENT Eyes: No congestion or icterus - Neck Neck: Present: supple, normal ROM - Respiratory Respiratory effort: normal Respiratory: bilateral: diminished, rhonchi, negative: rales, wheezing - Cardiovascular Rhythm: regular Heart Sounds: Present: S1 & S2 - Extremities Extremities: no ischemia, No edema - Abdominal General gastrointestinal: soft, non-tender, obese, normal bowel sounds - Integumentary Integumentary: Present: clear, warm - Psychiatric Psychiatric: other (intubated) - Neurologic Neurologic: other (intubated), unresponsive - Constitutional Vitals: Vital Signs - 12hr 08/09/20 08/09/20 08/09/20 06:01 06:15 06:31 Temperature Pulse Rate 72 72 75 Respiratory 17 17 12 Rate Blood Pressure 121/46 121/46 121/46 O2 Sat by Pulse 99 99 98 Oximetry 08/09/20 08/09/20 08/09/20 06:45 07:01 07:15 Temperature Pulse Rate 71 69 70 Respiratory 17 17 13 Rate Blood Pressure 121/46 114/45 114/45 O2 Sat by Pulse 98 99 99 Oximetry 08/09/20 08/09/20 08/09/20 07:31 07:45 08:00 Temperature 99.5 F Pulse Rate 71 72 76 Respiratory 15 18 Rate Blood Pressure 114/45 114/45 O2 Sat by Pulse 98 97 Oximetry 08/09/20 08/09/20 08/09/20 08:01 08:15 08:30 Temperature Pulse Rate 76 74 72 Respiratory 16 16 Rate Blood Pressure 130/70 130/70 130/70 O2 Sat by Pulse 98 98 99 Oximetry 08/09/20 08/09/20 08/09/20 08:31 08:45 09:01 Temperature Pulse Rate 74 70 72 Respiratory 16 17 17 Rate Blood Pressure 130/70 130/70 124/46 O2 Sat by Pulse 99 99 99 Oximetry 08/09/20 08/09/20 08/09/20 09:15 09:31 09:45 Temperature Pulse Rate 72 73 71 Respiratory 12 18 7 L Rate Blood Pressure 124/46 124/46 124/46 O2 Sat by Pulse 98 99 98 Oximetry 08/09/20 08/09/20 08/09/20 10:01 10:15 10:31 Temperature Pulse Rate 72 71 73 Respiratory 17 17 18 Rate Blood Pressure 118/43 124/46 124/46 O2 Sat by Pulse 99 98 99 Oximetry 08/09/20 08/09/20 08/09/20 10:45 11:01 11:15 Temperature Pulse Rate 73 74 73 Respiratory 18 14 19 Rate Blood Pressure 124/46 130/48 130/48 O2 Sat by Pulse 99 99 99 Oximetry 08/09/20 08/09/20 08/09/20 11:31 11:45 12:00 Temperature 98.2 F Pulse Rate 73 78 79 Respiratory 9 L 26 H Rate Blood Pressure 130/48 130/48 O2 Sat by Pulse 99 97 Oximetry 08/09/20 08/09/20 08/09/20 12:01 12:10 12:15 Temperature Pulse Rate 79 78 78 Respiratory 25 H 26 H 26 H Rate Blood Pressure 139/48 130/48 139/48 O2 Sat by Pulse 96 96 95 Oximetry 08/09/20 08/09/20 08/09/20 12:31 12:45 13:01 Temperature Pulse Rate 78 76 83 Respiratory 27 H 23 27 H Rate Blood Pressure 139/48 139/48 135/48 O2 Sat by Pulse 93 82 L 94 Oximetry 08/09/20 08/09/20 08/09/20 13:15 13:31 13:45 Temperature Pulse Rate 75 78 77 Respiratory 25 H 22 26 H Rate Blood Pressure 135/48 135/48 135/48 O2 Sat by Pulse 94 95 96 Oximetry 08/09/20 08/09/20 08/09/20 14:01 14:15 14:31 Temperature Pulse Rate 80 80 80 Respiratory 25 H 22 27 H Rate Blood Pressure 132/46 132/46 132/46 O2 Sat by Pulse 97 96 96 Oximetry 08/09/20 08/09/20 08/09/20 14:45 15:01 15:15 Temperature Pulse Rate 79 74 74 Respiratory 24 24 26 H Rate Blood Pressure 132/46 123/50 132/46 O2 Sat by Pulse 96 98 95 Oximetry 08/09/20 08/09/20 08/09/20 15:31 15:40 15:45 Temperature Pulse Rate 77 77 78 Respiratory 10 L 15 Rate Blood Pressure 132/46 132/46 132/46 O2 Sat by Pulse 98 96 97 Oximetry 08/09/20 08/09/20 08/09/20 16:00 16:01 16:15 Temperature 98.4 F Pulse Rate 74 76 74 Respiratory 17 15 Rate Blood Pressure 137/57 137/57 O2 Sat by Pulse 99 99 Oximetry 08/09/20 16:31 Temperature Pulse Rate 74 Respiratory 18 Rate Blood Pressure 137/57 O2 Sat by Pulse 99 Oximetry - Labs CBC & Chem 7: 08/11/20 03:55 08/11/20 03:55 Labs: Abnormal lab results 08/09/20 08/09/20 08/09/20 Range/Units 00:00 05:05 07:49 Sodium 130 L (137-145) mmol/L Chloride 90.1 L (98-107) mmol/L BUN 56 H (7-17) mg/dL Creatinine 2.4 H (0.6-1.2) mg/dL Glucose 104 H (65-100) mg/dL POC Glucose 129 H 111 H (70-105) mg/dL Calcium 7.4 L (8.4-10.2) mg/dL HEART Score - HEART Score Troponin: Troponin T 0.067 ng/mL (0.00-0.029) H 07/01/20 06:01
[2020-08-09] MEDS: INSULIN GLARGINE 100 UNITS/ML SUB-Q SCH (22:31)
[2020-08-10] MEDS: FUROSEMIDE 40 MG/4 ML INJ IV SCH (05:19)
[2020-08-10] MEDS: SODIUM CHLORIDE 0.9% IV SCH (05:19)
[2020-08-10] MEDS: PHENYTOIN IV SCH (05:19)
[2020-08-10] MEDS: HEPARIN 5,000 UNIT/1 ML VIAL SUB-Q SCH ×2 (05:20→22:47)
[2020-08-10] MEDS: INSULIN LISPRO 100 UNIT/ML VIAL 3 mL SUB-Q SCH ×2 (05:21)
--- NOTE | 2020-08-10 11:03 | Progress Note ---
Assessment and Plan - Patient Problems (1) Acute kidney injury (AVANI) with acute tubular necrosis (ATN) Current Visit: Yes Status: Acute Plan to address problem: Improved volume status with HD. Last HD performed on 08/07. will hold HD over the weekend and monitor renal parameters. volume control with IV lasix 80mg bid. Patient is a poor candidate for senior living HD, given her overall poor prognosis, anoxic brain injury s/p cardiac arrest. (2) Pneumonia due to COVID-19 virus Current Visit: Yes Status: Acute Plan to address problem: Patient has completed course of Remdesevir. Completed course of steroids. (3) Acute hypoxemic respiratory failure Current Visit: Yes Status: Acute Plan to address problem: Being managed by pulmonary. S/p Extubation 06/12. Back on respirator. Continue management by pulmonary/critical care (4) Cardiac arrest Current Visit: Yes Status: Acute Plan to address problem: s/p ACLS with eventual ROSC (5) Cardiomyopathy Current Visit: No Status: Acute Qualifiers: Cardiomyopathy type: unspecified Qualified Code(s): I42.9 - Cardiomyopathy, unspecified Plan to address problem: Patient has peripheral edema. Has not responded to Bumex infusion. cont HD for volume control (6) Type 2 diabetes mellitus with diabetic chronic kidney disease Current Visit: Yes Status: Acute Plan to address problem: Blood sugar management by primary attending (7) Hyponatremia Current Visit: Yes Status: Acute Plan to address problem: likely hypervolemic nature, improved with HD. cont IV lasix 80mg bid Subjective Date of service: 08/10/20 Principal diagnosis: Ac hypoxemic resp failure; COVID-19; pneumonia; CHF; Pulm HTN; OHS; DM II Interval history: Pt remains on vent support. unresponsive. Objective - Exam Narrative Exam: I did not do physical exam at the bedside due to PPE conservation with the current COVID-19 pandemic. - Vital Signs Vital signs: Vital Signs - 12hr 08/09/20 08/09/20 08/09/20 23:12 23:15 23:31 Temperature Pulse Rate 72 72 72 Pulse Rate [ From Monitor] Pulse Rate [ Right Dorsalis Pedis] Respiratory Rate Blood Pressure 114/44 114/44 O2 Sat by Pulse 99 99 99 Oximetry 08/09/20 08/10/20 08/10/20 23:45 00:00 00:01 Temperature 99.6 F Pulse Rate 72 73 72 Pulse Rate [ 73 From Monitor] Pulse Rate [ 73 Right Dorsalis Pedis] Respiratory 17 Rate Blood Pressure 114/44 124/43 O2 Sat by Pulse 99 99 Oximetry 08/10/20 08/10/20 08/10/20 00:15 00:31 00:45 Temperature Pulse Rate 74 73 73 Pulse Rate [ From Monitor] Pulse Rate [ Right Dorsalis Pedis] Respiratory 15 18 16 Rate Blood Pressure 124/43 124/43 124/43 O2 Sat by Pulse 98 99 99 Oximetry 08/10/20 08/10/20 08/10/20 01:01 01:15 01:31 Temperature Pulse Rate 72 73 73 Pulse Rate [ From Monitor] Pulse Rate [ Right Dorsalis Pedis] Respiratory 16 18 19 Rate Blood Pressure 130/46 130/46 130/46 O2 Sat by Pulse 99 99 99 Oximetry 08/10/20 08/10/20 08/10/20 01:45 02:01 02:15 Temperature Pulse Rate 75 73 74 Pulse Rate [ From Monitor] Pulse Rate [ Right Dorsalis Pedis] Respiratory 19 17 16 Rate Blood Pressure 130/46 127/44 127/44 O2 Sat by Pulse 98 99 98 Oximetry 08/10/20 08/10/20 08/10/20 02:31 02:45 03:01 Temperature Pulse Rate 73 73 73 Pulse Rate [ From Monitor] Pulse Rate [ Right Dorsalis Pedis] Respiratory 15 19 19 Rate Blood Pressure 127/44 127/44 122/47 O2 Sat by Pulse 99 99 99 Oximetry 08/10/20 08/10/20 08/10/20 03:15 03:31 03:45 Temperature Pulse Rate 77 74 74 Pulse Rate [ From Monitor] Pulse Rate [ Right Dorsalis Pedis] Respiratory 17 16 17 Rate Blood Pressure 122/47 122/47 122/47 O2 Sat by Pulse 98 98 99 Oximetry 08/10/20 08/10/20 08/10/20 04:00 04:01 04:15 Temperature 99.3 F Pulse Rate 71 74 75 Pulse Rate [ 72 From Monitor] Pulse Rate [ 72 Right Dorsalis Pedis] Respiratory 19 19 Rate Blood Pressure 131/46 131/46 O2 Sat by Pulse 99 99 Oximetry 08/10/20 08/10/20 08/10/20 04:31 04:45 05:00 Temperature Pulse Rate 74 74 75 Pulse Rate [ From Monitor] Pulse Rate [ Right Dorsalis Pedis] Respiratory 21 16 17 Rate Blood Pressure 131/46 131/46 131/46 O2 Sat by Pulse 98 99 98 Oximetry 08/10/20 08/10/20 08/10/20 05:15 05:31 05:45 Temperature Pulse Rate 76 73 73 Pulse Rate [ From Monitor] Pulse Rate [ Right Dorsalis Pedis] Respiratory 19 16 14 Rate Blood Pressure 132/46 132/46 132/46 O2 Sat by Pulse 99 99 99 Oximetry 08/10/20 08/10/20 08/10/20 06:01 06:15 06:31 Temperature Pulse Rate 74 73 73 Pulse Rate [ From Monitor] Pulse Rate [ Right Dorsalis Pedis] Respiratory 18 17 18 Rate Blood Pressure 126/46 126/46 126/46 O2 Sat by Pulse 99 99 99 Oximetry 08/10/20 08/10/20 08:50 09:00 Temperature Pulse Rate 85 77 Pulse Rate [ From Monitor] Pulse Rate [ Right Dorsalis Pedis] Respiratory 24 Rate Blood Pressure 123/49 123/49 O2 Sat by Pulse 99 98 Oximetry - Lab 08/08/20 15:00 08/09/20 05:05 Most recent lab results ABG pH 7.344 pH Units (7.350-7.450) L 08/02/20 11:25 ABG pCO2 39.0 mm Hg 08/02/20 11:25 ABG pO2 101.1 mm Hg (80.0-90.0) H 08/02/20 11:25 ABG HCO3 20.8 mmol/L (20.0-26.0) 08/02/20 11:25 ABG O2 Saturation 97.5 % (95.0-99.0) 08/02/20 11:25 Calcium 7.4 mg/dL (8.4-10.2) L 08/09/20 05:05 Magnesium 2.70 mg/dL (1.7-2.3) H 07/28/20 04:30 Urine Creatinine 33.3 mg/dL (0.1-20.0) H 07/06/20 13:20 Urine Sodium 21 mmol/L 07/06/20 13:20 Urine Total Protein 196 mg/dL (5-11.8) H 06/06/20 04:00 Medications & Allergies - Medications Allergies/Adverse Reactions: Allergies No Known Allergies Allergy (Verified 01/21/20 12:28) Home Medications: Home Medications Medication Instructions Recorded Confirmed Last Taken Type AtorvaSTATin [Lipitor] 20 mg PO QHS 05/12/20 05/29/20 Unknown History lisinopriL [Zestril TAB] 40 mg PO QDAY 05/12/20 05/29/20 Unknown History metFORMIN [Glucophage] 850 mg PO BID 05/12/20 05/29/20 Unknown History Acetaminophen [Acetaminophen TAB] 650 mg PO Q4H PRN tablet 05/13/20 05/29/20 Unknown Rx Dicyclomine [Bentyl] 20 mg PO BID #20 tablet 05/13/20 05/29/20 Unknown Rx Famotidine [Pepcid] 20 mg PO BID #30 tablet 05/13/20 05/29/20 Unknown Rx carvediloL [Coreg] 6.25 mg PO BID #60 05/13/20 05/29/20 Unknown Rx Active Medications: Generic Name Dose Route Start Last Admin Trade Name Freq PRN Reason Stop Dose Admin Acetaminophen 650 mg 06/09/20 10:57 06/29/20 21:18 Tylenol FEEDTUBE 650 mg Q6H PRN Administration Fever >101 Amlodipine Besylate 10 mg 06/02/20 11:00 08/09/20 09:59 Amlodipine PO 10 mg DAILY NELSON Administration Lipase/Protease/Amylase 1 each 05/29/20 13:39 07/07/20 10:[address] 10,500 Unit FEEDTUBE 1 each PRN PRN Administration For Clogged Feeding Tube Epoetin Javon 10,000 unit 07/29/20 11:29 08/07/20 13:18 Procrit IV 10,000 unit SCOTTY PRN Administration hemodialysis Furosemide 80 mg 08/08/20 18:00 08/10/20 05:19 Lasix IV 80 mg 0600,1800 NELSON Administration Glycopyrrolate 2 mg 06/09/20 14:00 08/09/20 22:16 Glycopyrrolate PO 2 mg TID NELSON Administration Heparin Sodium (Porcine) 5,000 unit 06/30/20 14:00 08/10/20 05:20 Heparin SUB-Q 5,000 unit Q8HR NELSON Administration Heparin Sodium (Porcine) 5,000 unit 07/29/20 11:29 08/02/20 23:15 Heparin IV 5,000 unit SCOTTY PRN Administration hemodialysis Hydralazine HCl 100 mg 07/14/20 14:00 08/09/20 21:25 Apresoline PO 100 mg TID NELSON Administration Hydrophilic Ointment 1 applic 05/28/20 13:49 Vaseline Lip Therapy TP Q2HR PRN Dry Lips Norepinephrine 4 mg in 250 mls @ 7.5 mls/hr 07/23/20 20:00 08/05/20 05:21 Levophed Drip 4 Mg/Ns 250 Ml IV 0 mcg/min TITR NELSON 0 mls/hr Titration Protocol 2 MCG/MIN Phenytoin 150 mg/ Sodium 103 mls @ 408 mls/hr 08/03/20 09:00 08/10/20 05:19 Chloride IV 408 mls/hr Q8HR NELSON Administration Sodium Chloride 100 mls @ 999 mls/hr 08/04/20 22:27 Nacl 0.9% IV SCOTTY PRN Hypotension Insulin Glargine 10 units 06/08/20 22:00 08/09/20 22:31 Lantus SUB-Q 10 units QHS NELSON Administration Insulin Human Lispro 0 unit 05/29/20 18:00 08/10/20 05:21 Humalog SUB-Q Not Given Q6H [facility] Protocol Labetalol HCl 20 mg 06/03/20 09:00 07/31/20 12:14 Labetalol IV 20 mg Q4H PRN Administration HYPERTENSION Lansoprazole 30 mg 08/08/20 10:00 08/09/20 09:57 Prevacid Solutab FEEDTUBE 30 mg QDAY NELSON Administration Levetiracetam 1,000 mg 08/08/20 22:00 08/09/20 22:16 Keppra PO 1,000 mg BID NELSON Administration Minoxidil 5 mg 07/21/20 10:00 08/09/20 22:17 Loniten PO 5 mg BID NELSON Administration Multi-Ingred Cream/Lotion/Oil/Oint 1 applic 05/28/20 13:49 Artificial Tears Ophth Oint OU Q4HR PRN Dry Eye(s) Ondansetron HCl 4 mg 06/02/20 09:00 06/09/20 16:48 Zofran IV 4 mg Q8H PRN Administration Nausea And Vomiting Senna 17.6 mg 06/03/20 10:00 08/09/20 22:14 Senokot FEEDTUBE 17.6 mg BID NELSON Administration Simple Syrup 15 ml 05/29/20 13:39 Simple Syrup FEEDTUBE PRN PRN Hypoglycemia Simple Syrup 30 ml 05/29/20 13:39 Simple Syrup FEEDTUBE PRN PRN Hypoglycemia Sodium Bicarbonate 325 mg 05/29/20 13:39 07/07/20 10:36 Sodium Bicarbonate FEEDTUBE 325 mg PRN PRN Administration For Clogged Feeding Tube Sodium Chloride 10 ml 05/28/20 22:00 08/09/20 22:18 Sodium Chloride Flush Syringe 10 Ml IV 10 ml BID NELSON Administration Sodium Chloride 10 ml 05/28/20 19:08 06/16/20 17:50 Sodium Chloride Flush Syringe 10 Ml IV 10 ml PRN PRN Administration LINE FLUSH
[2020-08-10] MEDS: EPOETIN ALFA 10,000 UNIT/1 ML INJ IV PRN (12:08)
--- NOTE | 2020-08-10 12:53 | Progress Note ---
Assessment and Plan Acute hypoxemic respiratory failure on MVS Coronavirus-19 infection. Bilateral pulmonary infiltrates, bilateral pneumonia plus likely element of Pulmonary edema. Bilateral pulmonary edema. Bilateral pleural effusions. History of congestive heart failure. Morbid obesity. History of pulmonary hypertension. History of hypertension. Diabetes. Obesity hypoventilation syndrome. Elevated serum inflammatory markers to include D-dimers and LDH levels. Hyperkalemia at presentation. Metabolic acidosis. Oropharyngeal dysphagia. (AMS remains rate limiting factor to safe extubation; she will need a tracheo stomy if continued care desired) - rest on AC qhs - await family's decision on hospice care transition - prn vasopressors for target MAP > 65 mmHg - continue care as below otherwise; - prn CXR's and ABG's at this point - repeat EEG next per neurology rec's (repeat CT brain negative) - AED's per neurology ([facility] [employer] [facility]) - surgery evaluation ongoing for trach +/- PEG (await negative COVID PCR result) - continue Modafinil re: lethargy / somnolence - continue daytime PSV trials as tolerated - Daily SAT and SBT assessment as tolerated - continue to wean supplemental oxygen for target O2 sat's > 92% acutely - VAP bundle addressed - continue lung protective strategies - continue bronchodilators with pulmonary hygiene per RT - wean per pulmonary driven protocols otherwise - continue accuchecks resumed with glycemic control per SSI (While critically ill target blood glucose of 140-180 mg/dL; avoid hypoglycemia) - sedation prn for target RASS 0 to -1 - continue to avoid benzodiazepine's, reduce the possibility of delirium - AB's per ID rec's (following clinically of AB's at this time) - continue enteral nutrition at goal rate as tolerated - AED's per neurology - prn analgesia per CPOT score - Maintenance of sleep-wake cycle, avoid delirium - continue enteral nutritional support at goal rate as tolerated - G.I. & VTE prophylaxis with heparin & famotidine - PT/OT/ROM exercises - continue mobility protocols for pressure ulcer prophylaxis - Monitor hemodynamics closely - continue other care per attending / other consultants - discharge planning ongoing concurrently (LTAC evaluation is appropriate) .... Re-evaluate in am & prn; will continue aggressive care until clear family wants to decelerate CONDITION: CRITICAL PROGNOSIS: GUARDED CODE STATUS: FULL CODE The high probability of a clinically significant, sudden or life-threatening deterioration of the [respiratory, cardiovascular, GI & neurologic] system(s) required my full and direct attention, intervention and personal management. The aggregate critical care time was [34] minutes without overlap. Time includes spent on; [x] Data Review and interpretation [x] Patient assessment and monitoring of vital signs [x] Documentation [x] Medication orders and management Subjective Date of service: 08/10/20 Principal diagnosis: Ac hypoxemic resp failure; COVID-19; pneumonia; CHF; Pulm HTN; OHS; DM II Interval history: Patient is seen today for: Ac hypoxemic resp failure; Coronavirus-19 infection; pneumonia; Pulmonary edema; Bilateral pleural effusions; CHF; Morbid obesity; pulmonary hypertension; OHS; DM II Seen and examined at bedside; 24hour events reviewed; nursing and respiratory care staff consulted; no adverse overnight events reported to me; resting peacefully in bed; remains on MVS; AMS is persistent; dialysis stopped and family contemplating care plan going forwards; tolerating PSV this morning Objective Vital Signs - 12hr 08/10/20 08/10/20 08/10/20 01:01 01:15 01:31 Temperature Pulse Rate 72 73 73 Pulse Rate [ From Monitor] Pulse Rate [ Right Dorsalis Pedis] Respiratory 16 18 19 Rate Blood Pressure 130/46 130/46 130/46 O2 Sat by Pulse 99 99 99 Oximetry 08/10/20 08/10/20 08/10/20 01:45 02:01 02:15 Temperature Pulse Rate 75 73 74 Pulse Rate [ From Monitor] Pulse Rate [ Right Dorsalis Pedis] Respiratory 19 17 16 Rate Blood Pressure 130/46 127/44 127/44 O2 Sat by Pulse 98 99 98 Oximetry 08/10/20 08/10/20 08/10/20 02:31 02:45 03:01 Temperature Pulse Rate 73 73 73 Pulse Rate [ From Monitor] Pulse Rate [ Right Dorsalis Pedis] Respiratory 15 19 19 Rate Blood Pressure 127/44 127/44 122/47 O2 Sat by Pulse 99 99 99 Oximetry 08/10/20 08/10/20 08/10/20 03:15 03:31 03:45 Temperature Pulse Rate 77 74 74 Pulse Rate [ From Monitor] Pulse Rate [ Right Dorsalis Pedis] Respiratory 17 16 17 Rate Blood Pressure 122/47 122/47 122/47 O2 Sat by Pulse 98 98 99 Oximetry 08/10/20 08/10/20 08/10/20 04:00 04:01 04:15 Temperature 99.3 F Pulse Rate 71 74 75 Pulse Rate [ 72 From Monitor] Pulse Rate [ 72 Right Dorsalis Pedis] Respiratory 19 19 Rate Blood Pressure 131/46 131/46 O2 Sat by Pulse 99 99 Oximetry 08/10/20 08/10/20 08/10/20 04:31 04:45 05:00 Temperature Pulse Rate 74 74 75 Pulse Rate [ From Monitor] Pulse Rate [ Right Dorsalis Pedis] Respiratory 21 16 17 Rate Blood Pressure 131/46 131/46 131/46 O2 Sat by Pulse 98 99 98 Oximetry 08/10/20 08/10/20 08/10/20 05:15 05:31 05:45 Temperature Pulse Rate 76 73 73 Pulse Rate [ From Monitor] Pulse Rate [ Right Dorsalis Pedis] Respiratory 19 16 14 Rate Blood Pressure 132/46 132/46 132/46 O2 Sat by Pulse 99 99 99 Oximetry 08/10/20 08/10/20 08/10/20 06:01 06:15 06:31 Temperature Pulse Rate 74 73 73 Pulse Rate [ From Monitor] Pulse Rate [ Right Dorsalis Pedis] Respiratory 18 17 18 Rate Blood Pressure 126/46 126/46 126/46 O2 Sat by Pulse 99 99 99 Oximetry 08/10/20 08/10/20 08:50 09:00 Temperature Pulse Rate 85 77 Pulse Rate [ From Monitor] Pulse Rate [ Right Dorsalis Pedis] Respiratory 24 Rate Blood Pressure 123/49 123/49 O2 Sat by Pulse 99 98 Oximetry Constitutional: appears uncomfortable, other (elderly looking female with mildly increased resp effort at rest) Eyes: non-icteric ENT: oropharynx moist, other (ETT 23-24 cm AYAN) Neck: supple, no lymphadenopathy, no JVD Effort: mildly labored Ascultation: Bilateral: diminished breath sounds, rhonchi Percussion: Bilateral: not dull Cardiovascular: regular rate and rhythm, other (S1,S2) Gastrointestinal: normoactive bowel sounds, soft, non-tender, non-distended Integumentary: rash, other (Right femoral trialysis catheter) Extremities: no cyanosis, pink and warm, pulses normal, no ischemia or petechiae, edema (pedal and peripheral ) Neurologic: unable to assess, other (lethargic to obtunded) Psychiatric: other (unable to assess re: AMS) CBC and BMP: 08/11/20 03:55 08/11/20 03:55 ABG, PT/INR, D-dimer: ABG ABG pH 7.344 pH Units (7.350-7.450) L 08/02/20 11:25 POC ABG pCO2 44.1 mmHg (32.0-48.0) 07/18/20 04:24 ABG pCO2 39.0 mm Hg 08/02/20 11:25 POC ABG pO2 86.8 mmHg (83-108) 07/18/20 04:24 ABG pO2 101.1 mm Hg (80.0-90.0) H 08/02/20 11:25 POC ABG HCO3 25.6 07/18/20 04:24 ABG O2 Saturation 97.5 % (95.0-99.0) 08/02/20 11:25 PT/INR, D-dimer PT 14.2 Sec. (12.2-14.9) 05/29/20 15:10 INR 1.08 (0.87-1.13) 05/29/20 15:10 D-Dimer 2310.15 ng/mlDDU (0-234) H 06/29/20 14:45 Abnormal lab findings: Abnormal Labs 05/28/20 05/28/20 05/28/20 13:29 13:47 13:47 WBC RBC Hgb Hct MCHC RDW 15.3 H Lymph % (Auto) [place] % (Auto) Eos % (Auto) Lymph # [place] # Lymph # (Auto) [place] # (Auto) Eos # (Auto) Seg Neutrophils % Seg Neuts % (Manual) Lymphocytes % (Manual) Seg Neutrophils # Seg Neutrophils # Man Lymphocytes # (Manual) Monocytes % (Manual) Eosinophils % (Manual) Monocytes # (Manual) Eosinophils # (Manual) D-Dimer Heparin Anti-Xa Level ABG pH POC ABG pCO2 POC ABG pO2 ABG pO2 ABG HCO3 ABG O2 Saturation ABG Base Excess ABG Hemoglobin ABG Oxyhemoglobin VBG pH ABG Sodium ABG Potassium ABG Glucose Oxyhemoglobin Sodium Potassium 6.6 H* Chloride 109.2 H Carbon Dioxide 17 L BUN 29 H Creatinine 1.3 H Glucose 265 H POC Glucose 248 H Lactic Acid Calcium 8.1 L Ferritin AST 63 H Alkaline Phosphatase Magnesium Lactate Dehydrogenase Total Creatine Kinase 301 H CK-MB (CK-2) 4.3 H C-Reactive Protein Total Protein 5.4 L Albumin 2.6 L Troponin T HDL Cholesterol Arterial Blood Glucose Urine WBC (Auto) Urine Creatinine Urine Total Protein Phenytoin Coronavirus (PCR) Crossmatch 05/28/20 05/28/20 05/28/20 13:47 13:47 14:46 WBC RBC Hgb Hct MCHC RDW Lymph % (Auto) [place] % (Auto) Eos % (Auto) Lymph # [place] # Lymph # (Auto) [place] # (Auto) Eos # (Auto) Seg Neutrophils % Seg Neuts % (Manual) Lymphocytes % (Manual) Seg Neutrophils # Seg Neutrophils # Man Lymphocytes # (Manual) Monocytes % (Manual) Eosinophils % (Manual) Monocytes # (Manual) Eosinophils # (Manual) D-Dimer Heparin Anti-Xa Level ABG pH POC ABG pCO2 POC ABG pO2 ABG pO2 ABG HCO3 ABG O2 Saturation ABG Base Excess ABG Hemoglobin ABG Oxyhemoglobin VBG pH 7.152 L* ABG Sodium ABG Potassium ABG Glucose Oxyhemoglobin Sodium Potassium 7.2 H* Chloride Carbon Dioxide BUN Creatinine Glucose POC Glucose Lactic Acid 3.40 H* Calcium Ferritin AST Alkaline Phosphatase Magnesium Lactate Dehydrogenase Total Creatine Kinase CK-MB (CK-2) C-Reactive Protein Total Protein Albumin Troponin T HDL Cholesterol Arterial Blood Glucose Urine WBC (Auto) Urine Creatinine Urine Total Protein Phenytoin Coronavirus (PCR) Crossmatch 05/28/20 05/28/20 05/28/20 15:33 15:33 15:51 WBC RBC Hgb Hct MCHC RDW Lymph % (Auto) [place] % (Auto) Eos % (Auto) Lymph # [place] # Lymph # (Auto) [place] # (Auto) Eos # (Auto) Seg Neutrophils % Seg Neuts % (Manual) Lymphocytes % (Manual) Seg Neutrophils # Seg Neutrophils # Man Lymphocytes # (Manual) Monocytes % (Manual) Eosinophils % (Manual) Monocytes # (Manual) Eosinophils # (Manual) D-Dimer 8780.43 H Heparin Anti-Xa Level ABG pH 7.284 L POC ABG pCO2 POC ABG pO2 ABG pO2 273.0 H ABG HCO3 ABG O2 Saturation 99.4 H ABG Base Excess -6.1 L ABG Hemoglobin 17.2 H ABG Oxyhemoglobin VBG pH ABG Sodium ABG Potassium ABG Glucose Oxyhemoglobin Sodium Potassium Chloride Carbon Dioxide BUN Creatinine Glucose 152 H POC Glucose Lactic Acid Calcium Ferritin AST Alkaline Phosphatase Magnesium Lactate Dehydrogenase 365 H Total Creatine Kinase CK-MB (CK-2) C-Reactive Protein Total Protein Albumin Troponin T HDL Cholesterol Arterial Blood Glucose Urine WBC (Auto) Urine Creatinine Urine Total Protein Phenytoin Coronavirus (PCR) Crossmatch 05/28/20 05/28/20 05/28/20 16:30 20:41 23:20 WBC RBC Hgb Hct MCHC RDW Lymph % (Auto) [place] % (Auto) Eos % (Auto) Lymph # [place] # Lymph # (Auto) [place] # (Auto) Eos # (Auto) Seg Neutrophils % Seg Neuts % (Manual) Lymphocytes % (Manual) Seg Neutrophils # Seg Neutrophils # Man Lymphocytes # (Manual) Monocytes % (Manual) Eosinophils % (Manual) Monocytes # (Manual) Eosinophils # (Manual) D-Dimer Heparin Anti-Xa Level ABG pH POC ABG pCO2 POC ABG pO2 ABG pO2 ABG HCO3 ABG O2 Saturation ABG Base Excess ABG Hemoglobin ABG Oxyhemoglobin VBG pH ABG Sodium ABG Potassium ABG Glucose Oxyhemoglobin Sodium Potassium Chloride Carbon Dioxide BUN Creatinine Glucose POC Glucose 225 H 224 H Lactic Acid Calcium Ferritin AST Alkaline Phosphatase Magnesium Lactate Dehydrogenase Total Creatine Kinase CK-MB (CK-2) C-Reactive Protein Total Protein Albumin Troponin T HDL Cholesterol Arterial Blood Glucose Urine WBC (Auto) 17.0 H Urine Creatinine Urine Total Protein Phenytoin Coronavirus (PCR) Crossmatch 05/28/20 05/29/20 05/29/20 Unknown 04:35 04:43 WBC RBC 3.48 L Hgb 9.8 L Hct 29.4 L MCHC RDW 16.0 H Lymph % (Auto) 7.4 L [place] % (Auto) Eos % (Auto) Lymph # 0.7 L [place] # Lymph # (Auto) [place] # (Auto) Eos # (Auto) Seg Neutrophils % 89.1 H Seg Neuts % (Manual) Lymphocytes % (Manual) Seg Neutrophils # 8.1 H Seg Neutrophils # Man Lymphocytes # (Manual) Monocytes % (Manual) Eosinophils % (Manual) Monocytes # (Manual) Eosinophils # (Manual) D-Dimer Heparin Anti-Xa Level ABG pH POC ABG pCO2 POC ABG pO2 ABG pO2 ABG HCO3 19.3 L ABG O2 Saturation ABG Base Excess -4.5 L ABG Hemoglobin 9.7 L ABG Oxyhemoglobin VBG pH ABG Sodium ABG Potassium ABG Glucose Oxyhemoglobin Sodium Potassium Chloride Carbon Dioxide BUN Creatinine Glucose POC Glucose Lactic Acid Calcium Ferritin AST Alkaline Phosphatase Magnesium Lactate Dehydrogenase Total Creatine Kinase CK-MB (CK-2) C-Reactive Protein Total Protein Albumin Troponin T HDL Cholesterol Arterial Blood Glucose Urine WBC (Auto) Urine Creatinine Urine Total Protein Phenytoin Coronavirus (PCR) Positive A Crossmatch 05/29/20 05/29/20 05/29/20 04:43 15:10 17:17 WBC RBC Hgb 9.3 L Hct 28.7 L MCHC RDW Lymph % (Auto) [place] % (Auto) Eos % (Auto) Lymph # [place] # Lymph # (Auto) [place] # (Auto) Eos # (Auto) Seg Neutrophils % Seg Neuts % (Manual) Lymphocytes % (Manual) Seg Neutrophils # Seg Neutrophils # Man Lymphocytes # (Manual) Monocytes % (Manual) Eosinophils % (Manual) Monocytes # (Manual) Eosinophils # (Manual) D-Dimer Heparin Anti-Xa Level ABG pH POC ABG pCO2 POC ABG pO2 ABG pO2 ABG HCO3 ABG O2 Saturation ABG Base Excess ABG Hemoglobin ABG Oxyhemoglobin VBG pH ABG Sodium ABG Potassium ABG Glucose Oxyhemoglobin Sodium Potassium Chloride 110.2 H Carbon Dioxide 18 L BUN 32 H Creatinine 1.4 H Glucose 180 H POC Glucose 147 H Lactic Acid Calcium Ferritin AST Alkaline Phosphatase Magnesium Lactate Dehydrogenase Total Creatine Kinase CK-MB (CK-2) C-Reactive Protein Total Protein Albumin Troponin T HDL Cholesterol Arterial Blood Glucose Urine WBC (Auto) Urine Creatinine Urine Total Protein Phenytoin Coronavirus (PCR) Crossmatch 05/30/20 05/30/20 05/30/20 00:08 00:12 04:15 WBC RBC Hgb Hct MCHC RDW Lymph % (Auto) [place] % (Auto) Eos % (Auto) Lymph # [place] # Lymph # (Auto) [place] # (Auto) Eos # (Auto) Seg Neutrophils % Seg Neuts % (Manual) Lymphocytes % (Manual) Seg Neutrophils # Seg Neutrophils # Man Lymphocytes # (Manual) Monocytes % (Manual) Eosinophils % (Manual) Monocytes # (Manual) Eosinophils # (Manual) D-Dimer Heparin Anti-Xa Level 0.71 H ABG pH 7.460 H POC ABG pCO2 POC ABG pO2 ABG pO2 106.0 H ABG HCO3 18.9 L ABG O2 Saturation ABG Base Excess -4.4 L ABG Hemoglobin 6.8 L ABG Oxyhemoglobin VBG pH ABG Sodium ABG Potassium ABG Glucose Oxyhemoglobin Sodium Potassium Chloride Carbon Dioxide BUN Creatinine Glucose POC Glucose 195 H Lactic Acid Calcium Ferritin AST Alkaline Phosphatase Magnesium Lactate Dehydrogenase Total Creatine Kinase CK-MB (CK-2) C-Reactive Protein Total Protein Albumin Troponin T HDL Cholesterol Arterial Blood Glucose Urine WBC (Auto) Urine Creatinine Urine Total Protein Phenytoin Coronavirus (PCR) Crossmatch 05/30/20 05/30/20 05/30/20 06:07 08:37 12:33 WBC RBC Hgb Hct MCHC RDW Lymph % (Auto) [place] % (Auto) Eos % (Auto) Lymph # [place] # Lymph # (Auto) [place] # (Auto) Eos # (Auto) Seg Neutrophils % Seg Neuts % (Manual) Lymphocytes % (Manual) Seg Neutrophils # Seg Neutrophils # Man Lymphocytes # (Manual) Monocytes % (Manual) Eosinophils % (Manual) Monocytes # (Manual) Eosinophils # (Manual) D-Dimer Heparin Anti-Xa Level 0.85 H ABG pH POC ABG pCO2 POC ABG pO2 ABG pO2 ABG HCO3 ABG O2 Saturation ABG Base Excess ABG Hemoglobin ABG Oxyhemoglobin VBG pH ABG Sodium ABG Potassium ABG Glucose Oxyhemoglobin Sodium Potassium Chloride Carbon Dioxide BUN Creatinine Glucose POC Glucose 182 H 187 H Lactic Acid Calcium Ferritin AST Alkaline Phosphatase Magnesium Lactate Dehydrogenase Total Creatine Kinase CK-MB (CK-2) C-Reactive Protein Total Protein Albumin Troponin T HDL Cholesterol Arterial Blood Glucose Urine WBC (Auto) Urine Creatinine Urine Total Protein Phenytoin Coronavirus (PCR) Crossmatch 05/30/20 05/30/20 05/30/20 15:58 17:57 23:36 WBC RBC Hgb Hct MCHC RDW Lymph % (Auto) [place] % (Auto) Eos % (Auto) Lymph # [place] # Lymph # (Auto) [place] # (Auto) Eos # (Auto) Seg Neutrophils % Seg Neuts % (Manual) Lymphocytes % (Manual) Seg Neutrophils # Seg Neutrophils # Man Lymphocytes # (Manual) Monocytes % (Manual) Eosinophils % (Manual) Monocytes # (Manual) Eosinophils # (Manual) D-Dimer Heparin Anti-Xa Level 1.03 H ABG pH POC ABG pCO2 POC ABG pO2 ABG pO2 ABG HCO3 ABG O2 Saturation ABG Base Excess ABG Hemoglobin ABG Oxyhemoglobin VBG pH ABG Sodium ABG Potassium ABG Glucose Oxyhemoglobin Sodium Potassium Chloride Carbon Dioxide BUN Creatinine Glucose POC Glucose 208 H 185 H Lactic Acid Calcium Ferritin AST Alkaline Phosphatase Magnesium Lactate Dehydrogenase Total Creatine Kinase CK-MB (CK-2) C-Reactive Protein Total Protein Albumin Troponin T HDL Cholesterol Arterial Blood Glucose Urine WBC (Auto) Urine Creatinine Urine Total Protein Phenytoin Coronavirus (PCR) Crossmatch 05/31/20 05/31/20 05/31/20 02:16 03:55 06:16 WBC RBC Hgb 9.2 L Hct 27.5 L MCHC RDW Lymph % (Auto) [place] % (Auto) Eos % (Auto) Lymph # [place] # Lymph # (Auto) [place] # (Auto) Eos # (Auto) Seg Neutrophils % Seg Neuts % (Manual) Lymphocytes % (Manual) Seg Neutrophils # Seg Neutrophils # Man Lymphocytes # (Manual) Monocytes % (Manual) Eosinophils % (Manual) Monocytes # (Manual) Eosinophils # (Manual) D-Dimer Heparin Anti-Xa Level ABG pH POC ABG pCO2 POC ABG pO2 ABG pO2 94.7 H ABG HCO3 18.6 L ABG O2 Saturation ABG Base Excess -5.5 L ABG Hemoglobin 7.9 L ABG Oxyhemoglobin VBG pH ABG Sodium ABG Potassium ABG Glucose Oxyhemoglobin Sodium Potassium Chloride Carbon Dioxide BUN Creatinine Glucose POC Glucose 160 H Lactic Acid Calcium Ferritin AST Alkaline Phosphatase Magnesium Lactate Dehydrogenase Total Creatine Kinase CK-MB (CK-2) C-Reactive Protein Total Protein Albumin Troponin T HDL Cholesterol Arterial Blood Glucose Urine WBC (Auto) Urine Creatinine Urine Total Protein Phenytoin Coronavirus (PCR) Crossmatch 05/31/20 05/31/20 05/31/20 12:20 13:03 18:13 WBC RBC Hgb Hct MCHC RDW Lymph % (Auto) [place] % (Auto) Eos % (Auto) Lymph # [place] # Lymph # (Auto) [place] # (Auto) Eos # (Auto) Seg Neutrophils % Seg Neuts % (Manual) Lymphocytes % (Manual) Seg Neutrophils # Seg Neutrophils # Man Lymphocytes # (Manual) Monocytes % (Manual) Eosinophils % (Manual) Monocytes # (Manual) Eosinophils # (Manual) D-Dimer Heparin Anti-Xa Level ABG pH POC ABG pCO2 POC ABG pO2 ABG pO2 ABG HCO3 ABG O2 Saturation ABG Base Excess ABG Hemoglobin ABG Oxyhemoglobin VBG pH ABG Sodium ABG Potassium ABG Glucose Oxyhemoglobin Sodium Potassium Chloride Carbon Dioxide 18 L BUN 48 H Creatinine 1.6 H Glucose 115 H POC Glucose 128 H 159 H Lactic Acid Calcium 8.3 L Ferritin AST Alkaline Phosphatase Magnesium Lactate Dehydrogenase Total Creatine Kinase CK-MB (CK-2) C-Reactive Protein Total Protein 5.4 L Albumin 2.4 L Troponin T HDL Cholesterol Arterial Blood Glucose Urine WBC (Auto) Urine Creatinine Urine Total Protein Phenytoin Coronavirus (PCR) Crossmatch 05/31/20 06/01/20 06/01/20 23:51 04:00 05:48 WBC RBC Hgb Hct MCHC RDW Lymph % (Auto) [place] % (Auto) Eos % (Auto) Lymph # [place] # Lymph # (Auto) [place] # (Auto) Eos # (Auto) Seg Neutrophils % Seg Neuts % (Manual) Lymphocytes % (Manual) Seg Neutrophils # Seg Neutrophils # Man Lymphocytes # (Manual) Monocytes % (Manual) Eosinophils % (Manual) Monocytes # (Manual) Eosinophils # (Manual) D-Dimer Heparin Anti-Xa Level ABG pH POC ABG pCO2 POC ABG pO2 ABG pO2 109.8 H ABG HCO3 18.8 L ABG O2 Saturation ABG Base Excess -5.9 L ABG Hemoglobin 7.8 L ABG Oxyhemoglobin VBG pH ABG Sodium ABG Potassium ABG Glucose Oxyhemoglobin Sodium Potassium Chloride Carbon Dioxide BUN Creatinine Glucose POC Glucose 171 H 133 H Lactic Acid Calcium Ferritin AST Alkaline Phosphatase Magnesium Lactate Dehydrogenase Total Creatine Kinase CK-MB (CK-2) C-Reactive Protein Total Protein Albumin Troponin T HDL Cholesterol Arterial Blood Glucose Urine WBC (Auto) Urine Creatinine Urine Total Protein Phenytoin Coronavirus (PCR) Crossmatch 06/01/20 06/01/20 06/02/20 12:28 17:29 00:08 WBC RBC Hgb Hct MCHC RDW Lymph % (Auto) [place] % (Auto) Eos % (Auto) Lymph # [place] # Lymph # (Auto) [place] # (Auto) Eos # (Auto) Seg Neutrophils % Seg Neuts % (Manual) Lymphocytes % (Manual) Seg Neutrophils # Seg Neutrophils # Man Lymphocytes # (Manual) Monocytes % (Manual) Eosinophils % (Manual) Monocytes # (Manual) Eosinophils # (Manual) D-Dimer Heparin Anti-Xa Level ABG pH POC ABG pCO2 POC ABG pO2 ABG pO2 ABG HCO3 ABG O2 Saturation ABG Base Excess ABG Hemoglobin ABG Oxyhemoglobin VBG pH ABG Sodium ABG Potassium ABG Glucose Oxyhemoglobin Sodium Potassium Chloride Carbon Dioxide BUN Creatinine Glucose POC Glucose 199 H 209 H 162 H Lactic Acid Calcium Ferritin AST Alkaline Phosphatase Magnesium Lactate Dehydrogenase Total Creatine Kinase CK-MB (CK-2) C-Reactive Protein Total Protein Albumin Troponin T HDL Cholesterol Arterial Blood Glucose Urine WBC (Auto) Urine Creatinine Urine Total Protein Phenytoin Coronavirus (PCR) Crossmatch 06/02/20 06/02/20 06/02/20 04:20 04:20 04:44 WBC RBC Hgb 10.0 L Hct MCHC RDW Lymph % (Auto) [place] % (Auto) Eos % (Auto) Lymph # [place] # Lymph # (Auto) [place] # (Auto) Eos # (Auto) Seg Neutrophils % Seg Neuts % (Manual) Lymphocytes % (Manual) Seg Neutrophils # Seg Neutrophils # Man Lymphocytes # (Manual) Monocytes % (Manual) Eosinophils % (Manual) Monocytes # (Manual) Eosinophils # (Manual) D-Dimer Heparin Anti-Xa Level 0.10 L ABG pH POC ABG pCO2 POC ABG pO2 ABG pO2 150.6 H ABG HCO3 ABG O2 Saturation ABG Base Excess -4.1 L ABG Hemoglobin 11.8 L ABG Oxyhemoglobin VBG pH ABG Sodium ABG Potassium ABG Glucose Oxyhemoglobin Sodium Potassium Chloride Carbon Dioxide BUN Creatinine Glucose POC Glucose Lactic Acid Calcium Ferritin AST Alkaline Phosphatase Magnesium Lactate Dehydrogenase Total Creatine Kinase CK-MB (CK-2) C-Reactive Protein Total Protein Albumin Troponin T HDL Cholesterol Arterial Blood Glucose Urine WBC (Auto) Urine Creatinine Urine Total Protein Phenytoin Coronavirus (PCR) Crossmatch 06/02/20 06/02/20 06/02/20 05:53 12:04 13:49 WBC RBC Hgb Hct MCHC RDW Lymph % (Auto) [place] % (Auto) Eos % (Auto) Lymph # [place] # Lymph # (Auto) [place] # (Auto) Eos # (Auto) Seg Neutrophils % Seg Neuts % (Manual) Lymphocytes % (Manual) Seg Neutrophils # Seg Neutrophils # Man Lymphocytes # (Manual) Monocytes % (Manual) Eosinophils % (Manual) Monocytes # (Manual) Eosinophils # (Manual) D-Dimer Heparin Anti-Xa Level 0.28 L ABG pH POC ABG pCO2 POC ABG pO2 ABG pO2 ABG HCO3 ABG O2 Saturation ABG Base Excess ABG Hemoglobin ABG Oxyhemoglobin VBG pH ABG Sodium ABG Potassium ABG Glucose Oxyhemoglobin Sodium Potassium Chloride Carbon Dioxide BUN Creatinine Glucose POC Glucose 149 H 220 H Lactic Acid Calcium Ferritin AST Alkaline Phosphatase Magnesium Lactate Dehydrogenase Total Creatine Kinase CK-MB (CK-2) C-Reactive Protein Total Protein Albumin Troponin T HDL Cholesterol Arterial Blood Glucose Urine WBC (Auto) Urine Creatinine Urine Total Protein Phenytoin Coronavirus (PCR) Crossmatch 06/02/20 06/02/20 06/03/20 13:49 18:31 00:42 WBC RBC Hgb Hct MCHC RDW Lymph % (Auto) [place] % (Auto) Eos % (Auto) Lymph # [place] # Lymph # (Auto) [place] # (Auto) Eos # (Auto) Seg Neutrophils % Seg Neuts % (Manual) Lymphocytes % (Manual) Seg Neutrophils # Seg Neutrophils # Man Lymphocytes # (Manual) Monocytes % (Manual) Eosinophils % (Manual) Monocytes # (Manual) Eosinophils # (Manual) D-Dimer 769.68 H Heparin Anti-Xa Level ABG pH POC ABG pCO2 POC ABG pO2 ABG pO2 ABG HCO3 ABG O2 Saturation ABG Base Excess ABG Hemoglobin ABG Oxyhemoglobin VBG pH ABG Sodium ABG Potassium ABG Glucose Oxyhemoglobin Sodium Potassium Chloride Carbon Dioxide BUN Creatinine Glucose POC Glucose 225 H 212 H Lactic Acid Calcium Ferritin AST Alkaline Phosphatase Magnesium Lactate Dehydrogenase Total Creatine Kinase CK-MB (CK-2) C-Reactive Protein Total Protein Albumin Troponin T HDL Cholesterol Arterial Blood Glucose Urine WBC (Auto) Urine Creatinine Urine Total Protein Phenytoin Coronavirus (PCR) Crossmatch 06/03/20 06/03/20 06/03/20 05:16 05:16 05:25 WBC 11.4 H RBC Hgb Hct MCHC RDW 16.4 H Lymph % (Auto) [place] % (Auto) Eos % (Auto) Lymph # [place] # Lymph # (Auto) [place] # (Auto) Eos # (Auto) Seg Neutrophils % Seg Neuts % (Manual) Lymphocytes % (Manual) Seg Neutrophils # Seg Neutrophils # Man Lymphocytes # (Manual) Monocytes % (Manual) Eosinophils % (Manual) Monocytes # (Manual) Eosinophils # (Manual) D-Dimer Heparin Anti-Xa Level ABG pH POC ABG pCO2 POC ABG pO2 ABG pO2 160.9 H ABG HCO3 19.4 L ABG O2 Saturation ABG Base Excess -4.9 L ABG Hemoglobin 7.0 L ABG Oxyhemoglobin VBG pH ABG Sodium ABG Potassium ABG Glucose Oxyhemoglobin Sodium Potassium Chloride Carbon Dioxide 18 L BUN 65 H Creatinine 2.0 H Glucose 175 H POC Glucose Lactic Acid Calcium 8.0 L Ferritin AST Alkaline Phosphatase Magnesium Lactate Dehydrogenase Total Creatine Kinase CK-MB (CK-2) C-Reactive Protein Total Protein 5.5 L Albumin 2.2 L Troponin T HDL Cholesterol Arterial Blood Glucose Urine WBC (Auto) Urine Creatinine Urine Total Protein Phenytoin Coronavirus (PCR) Crossmatch 06/03/20 06/03/20 06/03/20 06:07 11:58 18:24 WBC RBC Hgb Hct MCHC RDW Lymph % (Auto) [place] % (Auto) Eos % (Auto) Lymph # [place] # Lymph # (Auto) [place] # (Auto) Eos # (Auto) Seg Neutrophils % Seg Neuts % (Manual) Lymphocytes % (Manual) Seg Neutrophils # Seg Neutrophils # Man Lymphocytes # (Manual) Monocytes % (Manual) Eosinophils % (Manual) Monocytes # (Manual) Eosinophils # (Manual) D-Dimer Heparin Anti-Xa Level ABG pH POC ABG pCO2 POC ABG pO2 ABG pO2 ABG HCO3 ABG O2 Saturation ABG Base Excess ABG Hemoglobin ABG Oxyhemoglobin VBG pH ABG Sodium ABG Potassium ABG Glucose Oxyhemoglobin Sodium Potassium Chloride Carbon Dioxide BUN Creatinine Glucose POC Glucose 177 H 163 H 211 H Lactic Acid Calcium Ferritin AST Alkaline Phosphatase Magnesium Lactate Dehydrogenase Total Creatine Kinase CK-MB (CK-2) C-Reactive Protein Total Protein Albumin Troponin T HDL Cholesterol Arterial Blood Glucose Urine WBC (Auto) Urine Creatinine Urine Total Protein Phenytoin Coronavirus (PCR) Crossmatch 06/03/20 06/03/20 06/04/20 21:50 Unknown 00:26 WBC RBC Hgb Hct MCHC RDW Lymph % (Auto) [place] % (Auto) Eos % (Auto) Lymph # [place] # Lymph # (Auto) [place] # (Auto) Eos # (Auto) Seg Neutrophils % Seg Neuts % (Manual) Lymphocytes % (Manual) Seg Neutrophils # Seg Neutrophils # Man Lymphocytes # (Manual) Monocytes % (Manual) Eosinophils % (Manual) Monocytes # (Manual) Eosinophils # (Manual) D-Dimer Heparin Anti-Xa Level ABG pH POC ABG pCO2 POC ABG pO2 ABG pO2 ABG HCO3 ABG O2 Saturation ABG Base Excess ABG Hemoglobin ABG Oxyhemoglobin VBG pH ABG Sodium ABG Potassium ABG Glucose Oxyhemoglobin Sodium 135 L Potassium Chloride Carbon Dioxide 18 L BUN Creatinine Glucose POC Glucose 241 H Lactic Acid Calcium Ferritin AST Alkaline Phosphatase Magnesium Lactate Dehydrogenase Total Creatine Kinase CK-MB (CK-2) C-Reactive Protein Total Protein Albumin Troponin T HDL Cholesterol Arterial Blood Glucose Urine WBC (Auto) 11.0 H Urine Creatinine Urine Total Protein Phenytoin Coronavirus (PCR) Crossmatch 06/04/20 06/04/20 06/04/20 03:35 04:19 04:19 WBC RBC 3.15 L Hgb 8.9 L Hct 26.8 L D MCHC RDW 15.9 H Lymph % (Auto) 6.0 L [place] % (Auto) Eos % (Auto) Lymph # 0.6 L [place] # Lymph # (Auto) [place] # (Auto) Eos # (Auto) Seg Neutrophils % 86.6 H Seg Neuts % (Manual) Lymphocytes % (Manual) Seg Neutrophils # 9.1 H Seg Neutrophils # Man Lymphocytes # (Manual) Monocytes % (Manual) Eosinophils % (Manual) Monocytes # (Manual) Eosinophils # (Manual) D-Dimer Heparin Anti-Xa Level ABG pH 7.331 L POC ABG pCO2 POC ABG pO2 ABG pO2 ABG HCO3 ABG O2 Saturation ABG Base Excess -4.7 L ABG Hemoglobin 11.0 L ABG Oxyhemoglobin VBG pH ABG Sodium ABG Potassium ABG Glucose Oxyhemoglobin 93.9 L Sodium 136 L Potassium Chloride Carbon Dioxide 20 L BUN 73 H Creatinine 2.0 H Glucose 192 H POC Glucose Lactic Acid Calcium 8.0 L Ferritin AST Alkaline Phosphatase Magnesium Lactate Dehydrogenase 271 H Total Creatine Kinase CK-MB (CK-2) C-Reactive Protein 2.20 H Total Protein 5.0 L Albumin 2.0 L Troponin T HDL Cholesterol Arterial Blood Glucose Urine WBC (Auto) Urine Creatinine Urine Total Protein Phenytoin Coronavirus (PCR) Crossmatch 06/04/20 06/04/20 06/04/20 04:19 05:51 11:48 WBC RBC Hgb Hct MCHC RDW Lymph % (Auto) [place] % (Auto) Eos % (Auto) Lymph # [place] # Lymph # (Auto) [place] # (Auto) Eos # (Auto) Seg Neutrophils % Seg Neuts % (Manual) Lymphocytes % (Manual) Seg Neutrophils # Seg Neutrophils # Man Lymphocytes # (Manual) Monocytes % (Manual) Eosinophils % (Manual) Monocytes # (Manual) Eosinophils # (Manual) D-Dimer 414.52 H Heparin Anti-Xa Level ABG pH POC ABG pCO2 POC ABG pO2 ABG pO2 ABG HCO3 ABG O2 Saturation ABG Base Excess ABG Hemoglobin ABG Oxyhemoglobin VBG pH ABG Sodium ABG Potassium ABG Glucose Oxyhemoglobin Sodium Potassium Chloride Carbon Dioxide BUN Creatinine Glucose POC Glucose 179 H 213 H Lactic Acid Calcium Ferritin AST Alkaline Phosphatase Magnesium Lactate Dehydrogenase Total Creatine Kinase CK-MB (CK-2) C-Reactive Protein Total Protein Albumin Troponin T HDL Cholesterol Arterial Blood Glucose Urine WBC (Auto) Urine Creatinine Urine Total Protein Phenytoin Coronavirus (PCR) Crossmatch 06/04/20 06/05/20 06/05/20 18:25 00:16 05:00 WBC RBC Hgb Hct MCHC RDW Lymph % (Auto) [place] % (Auto) Eos % (Auto) Lymph # [place] # Lymph # (Auto) [place] # (Auto) Eos # (Auto) Seg Neutrophils % Seg Neuts % (Manual) Lymphocytes % (Manual) Seg Neutrophils # Seg Neutrophils # Man Lymphocytes # (Manual) Monocytes % (Manual) Eosinophils % (Manual) Monocytes # (Manual) Eosinophils # (Manual) D-Dimer Heparin Anti-Xa Level ABG pH 7.286 L POC ABG pCO2 POC ABG pO2 ABG pO2 96.2 H ABG HCO3 ABG O2 Saturation ABG Base Excess -6.3 L ABG Hemoglobin 8.8 L ABG Oxyhemoglobin VBG pH ABG Sodium ABG Potassium ABG Glucose Oxyhemoglobin 94.8 L Sodium Potassium Chloride Carbon Dioxide BUN Creatinine Glucose POC Glucose 238 H 183 H Lactic Acid Calcium Ferritin AST Alkaline Phosphatase Magnesium Lactate Dehydrogenase Total Creatine Kinase CK-MB (CK-2) C-Reactive Protein Total Protein Albumin Troponin T HDL Cholesterol Arterial Blood Glucose Urine WBC (Auto) Urine Creatinine Urine Total Protein Phenytoin Coronavirus (PCR) Crossmatch 06/05/20 06/05/20 06/05/20 05:39 07:25 07:25 WBC RBC 2.97 L Hgb 8.7 L Hct 25.7 L MCHC RDW 16.0 H Lymph % (Auto) 8.8 L [place] % (Auto) 13.3 H Eos % (Auto) Lymph # 0.8 L [place] # 1.3 H Lymph # (Auto) [place] # (Auto) Eos # (Auto) Seg Neutrophils % 77.3 H Seg Neuts % (Manual) Lymphocytes % (Manual) Seg Neutrophils # Seg Neutrophils # Man Lymphocytes # (Manual) Monocytes % (Manual) Eosinophils % (Manual) Monocytes # (Manual) Eosinophils # (Manual) D-Dimer Heparin Anti-Xa Level ABG pH POC ABG pCO2 POC ABG pO2 ABG pO2 ABG HCO3 ABG O2 Saturation ABG Base Excess ABG Hemoglobin ABG Oxyhemoglobin VBG pH ABG Sodium ABG Potassium ABG Glucose Oxyhemoglobin Sodium 133 L Potassium Chloride Carbon Dioxide 17 L BUN 89 H Creatinine 2.8 H Glucose 176 H POC Glucose 149 H Lactic Acid Calcium 7.7 L Ferritin AST Alkaline Phosphatase Magnesium Lactate Dehydrogenase Total Creatine Kinase CK-MB (CK-2) C-Reactive Protein Total Protein 4.2 L Albumin 1.9 L Troponin T HDL Cholesterol Arterial Blood Glucose Urine WBC (Auto) Urine Creatinine Urine Total Protein Phenytoin Coronavirus (PCR) Crossmatch 06/05/20 06/05/20 06/05/20 07:25 12:05 15:41 WBC RBC Hgb Hct MCHC RDW Lymph % (Auto) [place] % (Auto) Eos % (Auto) Lymph # [place] # Lymph # (Auto) [place] # (Auto) Eos # (Auto) Seg Neutrophils % Seg Neuts % (Manual) Lymphocytes % (Manual) Seg Neutrophils # Seg Neutrophils # Man Lymphocytes # (Manual) Monocytes % (Manual) Eosinophils % (Manual) Monocytes # (Manual) Eosinophils # (Manual) D-Dimer Heparin Anti-Xa Level 0.76 H 0.81 H ABG pH POC ABG pCO2 POC ABG pO2 ABG pO2 ABG HCO3 ABG O2 Saturation ABG Base Excess ABG Hemoglobin ABG Oxyhemoglobin VBG pH ABG Sodium ABG Potassium ABG Glucose Oxyhemoglobin Sodium Potassium Chloride Carbon Dioxide BUN Creatinine Glucose POC Glucose 198 H Lactic Acid Calcium Ferritin AST Alkaline Phosphatase Magnesium Lactate Dehydrogenase Total Creatine Kinase CK-MB (CK-2) C-Reactive Protein Total Protein Albumin Troponin T HDL Cholesterol Arterial Blood Glucose Urine WBC (Auto) Urine Creatinine Urine Total Protein Phenytoin Coronavirus (PCR) Crossmatch 06/05/20 06/05/20 06/06/20 18:08 23:25 04:00 WBC RBC Hgb Hct MCHC RDW Lymph % (Auto) [place] % (Auto) Eos % (Auto) Lymph # [place] # Lymph # (Auto) [place] # (Auto) Eos # (Auto) Seg Neutrophils % Seg Neuts % (Manual) Lymphocytes % (Manual) Seg Neutrophils # Seg Neutrophils # Man Lymphocytes # (Manual) Monocytes % (Manual) Eosinophils % (Manual) Monocytes # (Manual) Eosinophils # (Manual) D-Dimer Heparin Anti-Xa Level ABG pH POC ABG pCO2 POC ABG pO2 ABG pO2 ABG HCO3 ABG O2 Saturation ABG Base Excess ABG Hemoglobin ABG Oxyhemoglobin VBG pH ABG Sodium ABG Potassium ABG Glucose Oxyhemoglobin Sodium Potassium Chloride Carbon Dioxide BUN Creatinine Glucose POC Glucose 223 H 169 H Lactic Acid Calcium Ferritin AST Alkaline Phosphatase Magnesium Lactate Dehydrogenase Total Creatine Kinase CK-MB (CK-2) C-Reactive Protein Total Protein Albumin Troponin T HDL Cholesterol Arterial Blood Glucose Urine WBC (Auto) 15.0 H Urine Creatinine Urine Total Protein Phenytoin Coronavirus (PCR) Crossmatch 06/06/20 06/06/20 06/06/20 04:00 05:33 05:38 WBC RBC 2.97 L Hgb 8.7 L Hct 26.8 L MCHC RDW 16.8 H Lymph % (Auto) [place] % (Auto) Eos % (Auto) Lymph # [place] # Lymph # (Auto) [place] # (Auto) Eos # (Auto) Seg Neutrophils % Seg Neuts % (Manual) Lymphocytes % (Manual) Seg Neutrophils # Seg Neutrophils # Man Lymphocytes # (Manual) Monocytes % (Manual) Eosinophils % (Manual) Monocytes # (Manual) Eosinophils # (Manual) D-Dimer Heparin Anti-Xa Level ABG pH POC ABG pCO2 POC ABG pO2 ABG pO2 ABG HCO3 ABG O2 Saturation ABG Base Excess ABG Hemoglobin ABG Oxyhemoglobin VBG pH ABG Sodium ABG Potassium ABG Glucose Oxyhemoglobin Sodium Potassium Chloride Carbon Dioxide BUN Creatinine Glucose POC Glucose 186 H Lactic Acid Calcium Ferritin AST Alkaline Phosphatase Magnesium Lactate Dehydrogenase Total Creatine Kinase CK-MB (CK-2) C-Reactive Protein Total Protein Albumin Troponin T HDL Cholesterol Arterial Blood Glucose Urine WBC (Auto) Urine Creatinine 82.2 H Urine Total Protein 196 H Phenytoin Coronavirus (PCR) Crossmatch 06/06/20 06/06/20 06/06/20 05:38 12:25 17:03 WBC RBC Hgb Hct MCHC RDW Lymph % (Auto) [place] % (Auto) Eos % (Auto) Lymph # [place] # Lymph # (Auto) [place] # (Auto) Eos # (Auto) Seg Neutrophils % Seg Neuts % (Manual) Lymphocytes % (Manual) Seg Neutrophils # Seg Neutrophils # Man Lymphocytes # (Manual) Monocytes % (Manual) Eosinophils % (Manual) Monocytes # (Manual) Eosinophils # (Manual) D-Dimer Heparin Anti-Xa Level ABG pH POC ABG pCO2 POC ABG pO2 ABG pO2 ABG HCO3 ABG O2 Saturation ABG Base Excess ABG Hemoglobin ABG Oxyhemoglobin VBG pH ABG Sodium ABG Potassium ABG Glucose Oxyhemoglobin Sodium 134 L Potassium 5.2 H Chloride Carbon Dioxide 18 L BUN 97 H Creatinine 2.5 H Glucose 193 H POC Glucose 239 H 252 H Lactic Acid Calcium 7.5 L Ferritin AST Alkaline Phosphatase Magnesium Lactate Dehydrogenase Total Creatine Kinase CK-MB (CK-2) C-Reactive Protein Total Protein 4.1 L Albumin 1.9 L Troponin T HDL Cholesterol Arterial Blood Glucose Urine WBC (Auto) Urine Creatinine Urine Total Protein Phenytoin Coronavirus (PCR) Crossmatch 06/07/20 06/07/20 06/07/20 00:16 01:49 04:00 WBC RBC 2.91 L Hgb 8.4 L Hct 25.0 L MCHC RDW 16.1 H Lymph % (Auto) 5.7 L [place] % (Auto) 10.5 H Eos % (Auto) Lymph # 0.6 L [place] # 1.1 H Lymph # (Auto) [place] # (Auto) Eos # (Auto) Seg Neutrophils % 83.6 H Seg Neuts % (Manual) Lymphocytes % (Manual) Seg Neutrophils # 9.1 H Seg Neutrophils # Man Lymphocytes # (Manual) Monocytes % (Manual) Eosinophils % (Manual) Monocytes # (Manual) Eosinophils # (Manual) D-Dimer Heparin Anti-Xa Level 0.26 L ABG pH POC ABG pCO2 POC ABG pO2 ABG pO2 ABG HCO3 ABG O2 Saturation ABG Base Excess ABG Hemoglobin ABG Oxyhemoglobin VBG pH ABG Sodium ABG Potassium ABG Glucose Oxyhemoglobin Sodium Potassium Chloride Carbon Dioxide BUN Creatinine Glucose POC Glucose 173 H Lactic Acid Calcium Ferritin AST Alkaline Phosphatase Magnesium Lactate Dehydrogenase Total Creatine Kinase CK-MB (CK-2) C-Reactive Protein Total Protein Albumin Troponin T HDL Cholesterol Arterial Blood Glucose Urine WBC (Auto) Urine Creatinine Urine Total Protein Phenytoin Coronavirus (PCR) Crossmatch 06/07/20 06/07/20 06/07/20 04:00 04:54 05:51 WBC RBC Hgb Hct MCHC RDW Lymph % (Auto) [place] % (Auto) Eos % (Auto) Lymph # [place] # Lymph # (Auto) [place] # (Auto) Eos # (Auto) Seg Neutrophils % Seg Neuts % (Manual) Lymphocytes % (Manual) Seg Neutrophils # Seg Neutrophils # Man Lymphocytes # (Manual) Monocytes % (Manual) Eosinophils % (Manual) Monocytes # (Manual) Eosinophils # (Manual) D-Dimer Heparin Anti-Xa Level ABG pH 7.317 L POC ABG pCO2 POC ABG pO2 ABG pO2 71.4 L ABG HCO3 ABG O2 Saturation 94.3 L ABG Base Excess -4.8 L ABG Hemoglobin 7.1 L ABG Oxyhemoglobin VBG pH ABG Sodium ABG Potassium ABG Glucose Oxyhemoglobin 92.2 L Sodium 133 L Potassium Chloride Carbon Dioxide 18 L BUN 100 H Creatinine 2.5 H Glucose 158 H POC Glucose 168 H Lactic Acid Calcium 7.6 L Ferritin AST Alkaline Phosphatase Magnesium Lactate Dehydrogenase Total Creatine Kinase CK-MB (CK-2) C-Reactive Protein Total Protein 4.7 L Albumin 2.0 L Troponin T HDL Cholesterol Arterial Blood Glucose Urine WBC (Auto) Urine Creatinine Urine Total Protein Phenytoin Coronavirus (PCR) Crossmatch 06/07/20 06/07/20 06/07/20 12:03 17:17 20:10 WBC RBC Hgb Hct MCHC RDW Lymph % (Auto) [place] % (Auto) Eos % (Auto) Lymph # [place] # Lymph # (Auto) [place] # (Auto) Eos # (Auto) Seg Neutrophils % Seg Neuts % (Manual) Lymphocytes % (Manual) Seg Neutrophils # Seg Neutrophils # Man Lymphocytes # (Manual) Monocytes % (Manual) Eosinophils % (Manual) Monocytes # (Manual) Eosinophils # (Manual) D-Dimer Heparin Anti-Xa Level 0.17 L ABG pH POC ABG pCO2 POC ABG pO2 ABG pO2 ABG HCO3 ABG O2 Saturation ABG Base Excess ABG Hemoglobin ABG Oxyhemoglobin VBG pH ABG Sodium ABG Potassium ABG Glucose Oxyhemoglobin Sodium Potassium Chloride Carbon Dioxide BUN Creatinine Glucose POC Glucose 276 H 281 H Lactic Acid Calcium Ferritin AST Alkaline Phosphatase Magnesium Lactate Dehydrogenase Total Creatine Kinase CK-MB (CK-2) C-Reactive Protein Total Protein Albumin Troponin T HDL Cholesterol Arterial Blood Glucose Urine WBC (Auto) Urine Creatinine Urine Total Protein Phenytoin Coronavirus (PCR) Crossmatch 06/08/20 06/08/20 06/08/20 00:02 04:47 04:47 WBC 16.4 H RBC 3.07 L Hgb 8.6 L Hct 26.5 L MCHC RDW 16.3 H Lymph % (Auto) [place] % (Auto) Eos % (Auto) Lymph # [place] # Lymph # (Auto) [place] # (Auto) Eos # (Auto) Seg Neutrophils % Seg Neuts % (Manual) 90.0 H Lymphocytes % (Manual) 3.0 L Seg Neutrophils # Seg Neutrophils # Man 14.8 H Lymphocytes # (Manual) 0.5 L Monocytes % (Manual) Eosinophils % (Manual) Monocytes # (Manual) 1.1 H Eosinophils # (Manual) D-Dimer Heparin Anti-Xa Level ABG pH POC ABG pCO2 POC ABG pO2 ABG pO2 ABG HCO3 ABG O2 Saturation ABG Base Excess ABG Hemoglobin ABG Oxyhemoglobin VBG pH ABG Sodium ABG Potassium ABG Glucose Oxyhemoglobin Sodium 129 L Potassium Chloride 95.6 L Carbon Dioxide 17 L BUN 106 H Creatinine 2.5 H Glucose 213 H POC Glucose 242 H Lactic Acid Calcium 7.6 L Ferritin AST Alkaline Phosphatase Magnesium Lactate Dehydrogenase Total Creatine Kinase CK-MB (CK-2) C-Reactive Protein Total Protein 5.0 L Albumin 2.1 L Troponin T HDL Cholesterol Arterial Blood Glucose Urine WBC (Auto) Urine Creatinine Urine Total Protein Phenytoin Coronavirus (PCR) Crossmatch 06/08/20 06/08/20 06/08/20 05:40 11:55 17:54 WBC RBC Hgb Hct MCHC RDW Lymph % (Auto) [place] % (Auto) Eos % (Auto) Lymph # [place] # Lymph # (Auto) [place] # (Auto) Eos # (Auto) Seg Neutrophils % Seg Neuts % (Manual) Lymphocytes % (Manual) Seg Neutrophils # Seg Neutrophils # Man Lymphocytes # (Manual) Monocytes % (Manual) Eosinophils % (Manual) Monocytes # (Manual) Eosinophils # (Manual) D-Dimer Heparin Anti-Xa Level ABG pH POC ABG pCO2 POC ABG pO2 ABG pO2 ABG HCO3 ABG O2 Saturation ABG Base Excess ABG Hemoglobin ABG Oxyhemoglobin VBG pH ABG Sodium ABG Potassium ABG Glucose Oxyhemoglobin Sodium Potassium Chloride Carbon Dioxide BUN Creatinine Glucose POC Glucose 221 H 218 H 163 H Lactic Acid Calcium Ferritin AST Alkaline Phosphatase Magnesium Lactate Dehydrogenase Total Creatine Kinase CK-MB (CK-2) C-Reactive Protein Total Protein Albumin Troponin T HDL Cholesterol Arterial Blood Glucose Urine WBC (Auto) Urine Creatinine Urine Total Protein Phenytoin Coronavirus (PCR) Crossmatch 06/08/20 06/09/20 06/09/20 22:01 00:09 05:16 WBC 19.0 H RBC 3.35 L Hgb 9.2 L Hct 28.5 L MCHC RDW 16.3 H Lymph % (Auto) [place] % (Auto) Eos % (Auto) Lymph # [place] # Lymph # (Auto) [place] # (Auto) Eos # (Auto) Seg Neutrophils % Seg Neuts % (Manual) 85.0 H Lymphocytes % (Manual) 7.0 L Seg Neutrophils # Seg Neutrophils # Man 16.2 H Lymphocytes # (Manual) Monocytes % (Manual) Eosinophils % (Manual) Monocytes # (Manual) 1.3 H Eosinophils # (Manual) D-Dimer Heparin Anti-Xa Level ABG pH POC ABG pCO2 POC ABG pO2 ABG pO2 ABG HCO3 ABG O2 Saturation ABG Base Excess ABG Hemoglobin ABG Oxyhemoglobin VBG pH ABG Sodium ABG Potassium ABG Glucose Oxyhemoglobin Sodium Potassium Chloride Carbon Dioxide BUN Creatinine Glucose POC Glucose 182 H 150 H Lactic Acid Calcium Ferritin AST Alkaline Phosphatase Magnesium Lactate Dehydrogenase Total Creatine Kinase CK-MB (CK-2) C-Reactive Protein Total Protein Albumin Troponin T HDL Cholesterol Arterial Blood Glucose Urine WBC (Auto) Urine Creatinine Urine Total Protein Phenytoin Coronavirus (PCR) Crossmatch 06/09/20 06/09/20 06/09/20 05:16 05:24 11:29 WBC RBC Hgb Hct MCHC RDW Lymph % (Auto) [place] % (Auto) Eos % (Auto) Lymph # [place] # Lymph # (Auto) [place] # (Auto) Eos # (Auto) Seg Neutrophils % Seg Neuts % (Manual) Lymphocytes % (Manual) Seg Neutrophils # Seg Neutrophils # Man Lymphocytes # (Manual) Monocytes % (Manual) Eosinophils % (Manual) Monocytes # (Manual) Eosinophils # (Manual) D-Dimer Heparin Anti-Xa Level ABG pH POC ABG pCO2 POC ABG pO2 ABG pO2 ABG HCO3 ABG O2 Saturation ABG Base Excess ABG Hemoglobin ABG Oxyhemoglobin VBG pH ABG Sodium ABG Potassium ABG Glucose Oxyhemoglobin Sodium 133 L Potassium Chloride Carbon Dioxide 19 L BUN 109 H Creatinine 2.1 H Glucose 133 H POC Glucose 128 H 119 H Lactic Acid Calcium 7.7 L Ferritin AST Alkaline Phosphatase < 5 L Magnesium Lactate Dehydrogenase Total Creatine Kinase CK-MB (CK-2) C-Reactive Protein Total Protein 4.6 L Albumin < 0.2 L Troponin T HDL Cholesterol Arterial Blood Glucose Urine WBC (Auto) Urine Creatinine Urine Total Protein Phenytoin Coronavirus (PCR) Crossmatch 06/09/20 06/10/20 06/10/20 17:32 00:00 05:49 WBC RBC Hgb Hct MCHC RDW Lymph % (Auto) [place] % (Auto) Eos % (Auto) Lymph # [place] # Lymph # (Auto) [place] # (Auto) Eos # (Auto) Seg Neutrophils % Seg Neuts % (Manual) Lymphocytes % (Manual) Seg Neutrophils # Seg Neutrophils # Man Lymphocytes # (Manual) Monocytes % (Manual) Eosinophils % (Manual) Monocytes # (Manual) Eosinophils # (Manual) D-Dimer Heparin Anti-Xa Level 0.19 L ABG pH POC ABG pCO2 POC ABG pO2 ABG pO2 ABG HCO3 ABG O2 Saturation ABG Base Excess ABG Hemoglobin ABG Oxyhemoglobin VBG pH ABG Sodium ABG Potassium ABG Glucose Oxyhemoglobin Sodium Potassium Chloride Carbon Dioxide BUN Creatinine Glucose POC Glucose 106 H 117 H Lactic Acid Calcium Ferritin AST Alkaline Phosphatase Magnesium Lactate Dehydrogenase Total Creatine Kinase CK-MB (CK-2) C-Reactive Protein Total Protein Albumin Troponin T HDL Cholesterol Arterial Blood Glucose Urine WBC (Auto) Urine Creatinine Urine Total Protein Phenytoin Coronavirus (PCR) Crossmatch 06/10/20 06/10/20 06/10/20 05:54 07:40 11:40 WBC RBC Hgb Hct MCHC RDW Lymph % (Auto) [place] % (Auto) Eos % (Auto) Lymph # [place] # Lymph # (Auto) [place] # (Auto) Eos # (Auto) Seg Neutrophils % Seg Neuts % (Manual) Lymphocytes % (Manual) Seg Neutrophils # Seg Neutrophils # Man Lymphocytes # (Manual) Monocytes % (Manual) Eosinophils % (Manual) Monocytes # (Manual) Eosinophils # (Manual) D-Dimer Heparin Anti-Xa Level ABG pH POC ABG pCO2 POC ABG pO2 ABG pO2 ABG HCO3 ABG O2 Saturation ABG Base Excess ABG Hemoglobin ABG Oxyhemoglobin VBG pH ABG Sodium ABG Potassium ABG Glucose Oxyhemoglobin Sodium 146 H D Potassium Chloride Carbon Dioxide 20 L BUN 99 H Creatinine 1.9 H Glucose 121 H POC Glucose 127 H 138 H Lactic Acid Calcium 8.2 L Ferritin AST Alkaline Phosphatase Magnesium Lactate Dehydrogenase Total Creatine Kinase CK-MB (CK-2) C-Reactive Protein Total Protein Albumin Troponin T HDL Cholesterol Arterial Blood Glucose Urine WBC (Auto) Urine Creatinine Urine Total Protein Phenytoin Coronavirus (PCR) Crossmatch 06/10/20 06/10/20 06/10/20 14:44 17:31 23:22 WBC RBC Hgb Hct MCHC RDW Lymph % (Auto) [place] % (Auto) Eos % (Auto) Lymph # [place] # Lymph # (Auto) [place] # (Auto) Eos # (Auto) Seg Neutrophils % Seg Neuts % (Manual) Lymphocytes % (Manual) Seg Neutrophils # Seg Neutrophils # Man Lymphocytes # (Manual) Monocytes % (Manual) Eosinophils % (Manual) Monocytes # (Manual) Eosinophils # (Manual) D-Dimer Heparin Anti-Xa Level 0.17 L ABG pH POC ABG pCO2 POC ABG pO2 ABG pO2 ABG HCO3 ABG O2 Saturation ABG Base Excess ABG Hemoglobin ABG Oxyhemoglobin VBG pH ABG Sodium ABG Potassium ABG Glucose Oxyhemoglobin Sodium Potassium Chloride Carbon Dioxide BUN Creatinine Glucose POC Glucose 128 H 114 H Lactic Acid Calcium Ferritin AST Alkaline Phosphatase Magnesium Lactate Dehydrogenase Total Creatine Kinase CK-MB (CK-2) C-Reactive Protein Total Protein Albumin Troponin T HDL Cholesterol Arterial Blood Glucose Urine WBC (Auto) Urine Creatinine Urine Total Protein Phenytoin Coronavirus (PCR) Crossmatch 06/11/20 06/11/20 06/11/20 00:22 03:45 03:45 WBC 14.6 H RBC 2.77 L Hgb 7.9 L Hct 24.3 L MCHC RDW 16.8 H Lymph % (Auto) 6.6 L [place] % (Auto) 8.5 H Eos % (Auto) Lymph # 1.0 L [place] # 1.2 H Lymph # (Auto) [place] # (Auto) Eos # (Auto) Seg Neutrophils % 82.9 H Seg Neuts % (Manual) Lymphocytes % (Manual) Seg Neutrophils # 12.1 H Seg Neutrophils # Man Lymphocytes # (Manual) Monocytes % (Manual) Eosinophils % (Manual) Monocytes # (Manual) Eosinophils # (Manual) D-Dimer Heparin Anti-Xa Level 0.24 L ABG pH POC ABG pCO2 POC ABG pO2 ABG pO2 ABG HCO3 ABG O2 Saturation ABG Base Excess ABG Hemoglobin ABG Oxyhemoglobin VBG pH ABG Sodium ABG Potassium ABG Glucose Oxyhemoglobin Sodium Potassium Chloride Carbon Dioxide 20 L BUN 88 H Creatinine 1.5 H Glucose 111 H POC Glucose Lactic Acid Calcium 8.2 L Ferritin AST Alkaline Phosphatase Magnesium Lactate Dehydrogenase Total Creatine Kinase CK-MB (CK-2) C-Reactive Protein Total Protein Albumin Troponin T HDL Cholesterol Arterial Blood Glucose Urine WBC (Auto) Urine Creatinine Urine Total Protein Phenytoin Coronavirus (PCR) Crossmatch 06/11/20 06/11/20 06/11/20 06:03 10:22 11:11 WBC RBC Hgb Hct MCHC RDW Lymph % (Auto) [place] % (Auto) Eos % (Auto) Lymph # [place] # Lymph # (Auto) [place] # (Auto) Eos # (Auto) Seg Neutrophils % Seg Neuts % (Manual) Lymphocytes % (Manual) Seg Neutrophils # Seg Neutrophils # Man Lymphocytes # (Manual) Monocytes % (Manual) Eosinophils % (Manual) Monocytes # (Manual) Eosinophils # (Manual) D-Dimer Heparin Anti-Xa Level 0.26 L ABG pH POC ABG pCO2 POC ABG pO2 ABG pO2 ABG HCO3 ABG O2 Saturation ABG Base Excess ABG Hemoglobin 9.6 L ABG Oxyhemoglobin VBG pH ABG Sodium ABG Potassium ABG Glucose Oxyhemoglobin Sodium Potassium Chloride Carbon Dioxide BUN Creatinine Glucose POC Glucose 114 H Lactic Acid Calcium Ferritin AST Alkaline Phosphatase Magnesium Lactate Dehydrogenase Total Creatine Kinase CK-MB (CK-2) C-Reactive Protein Total Protein Albumin Troponin T HDL Cholesterol Arterial Blood Glucose Urine WBC (Auto) Urine Creatinine Urine Total Protein Phenytoin Coronavirus (PCR) Crossmatch 06/11/20 06/11/20 06/12/20 12:24 17:24 00:21 WBC RBC Hgb Hct MCHC RDW Lymph % (Auto) [place] % (Auto) Eos % (Auto) Lymph # [place] # Lymph # (Auto) [place] # (Auto) Eos # (Auto) Seg Neutrophils % Seg Neuts % (Manual) Lymphocytes % (Manual) Seg Neutrophils # Seg Neutrophils # Man Lymphocytes # (Manual) Monocytes % (Manual) Eosinophils % (Manual) Monocytes # (Manual) Eosinophils # (Manual) D-Dimer Heparin Anti-Xa Level ABG pH POC ABG pCO2 POC ABG pO2 ABG pO2 ABG HCO3 ABG O2 Saturation ABG Base Excess ABG Hemoglobin ABG Oxyhemoglobin VBG pH ABG Sodium ABG Potassium ABG Glucose Oxyhemoglobin Sodium Potassium Chloride Carbon Dioxide BUN Creatinine Glucose POC Glucose 119 H 126 H 117 H Lactic Acid Calcium Ferritin AST Alkaline Phosphatase Magnesium Lactate Dehydrogenase Total Creatine Kinase CK-MB (CK-2) C-Reactive Protein Total Protein Albumin Troponin T HDL Cholesterol Arterial Blood Glucose Urine WBC (Auto) Urine Creatinine Urine Total Protein Phenytoin Coronavirus (PCR) Crossmatch 06/12/20 06/12/20 06/12/20 02:46 02:46 05:46 WBC 13.2 H RBC 2.83 L Hgb 8.3 L Hct 24.3 L MCHC RDW 16.6 H Lymph % (Auto) 6.2 L [place] % (Auto) 9.5 H Eos % (Auto) Lymph # 0.8 L [place] # 1.3 H Lymph # (Auto) [place] # (Auto) Eos # (Auto) Seg Neutrophils % 81.9 H Seg Neuts % (Manual) Lymphocytes % (Manual) Seg Neutrophils # 10.9 H Seg Neutrophils # Man Lymphocytes # (Manual) Monocytes % (Manual) Eosinophils % (Manual) Monocytes # (Manual) Eosinophils # (Manual) D-Dimer Heparin Anti-Xa Level ABG pH POC ABG pCO2 POC ABG pO2 ABG pO2 ABG HCO3 ABG O2 Saturation ABG Base Excess ABG Hemoglobin ABG Oxyhemoglobin VBG pH ABG Sodium ABG Potassium ABG Glucose Oxyhemoglobin Sodium Potassium 3.5 L Chloride Carbon Dioxide BUN 77 H Creatinine 1.3 H Glucose POC Glucose 132 H Lactic Acid Calcium 8.3 L Ferritin AST Alkaline Phosphatase Magnesium Lactate Dehydrogenase Total Creatine Kinase CK-MB (CK-2) C-Reactive Protein Total Protein Albumin Troponin T HDL Cholesterol Arterial Blood Glucose Urine WBC (Auto) Urine Creatinine Urine Total Protein Phenytoin Coronavirus (PCR) Crossmatch 09/01/2606/12/20 06/12/20 09:20 12:16 17:48 WBC RBC Hgb Hct MCHC RDW Lymph % (Auto) [place] % (Auto) Eos % (Auto) Lymph # [place] # Lymph # (Auto) [place] # (Auto) Eos # (Auto) Seg Neutrophils % Seg Neuts % (Manual) Lymphocytes % (Manual) Seg Neutrophils # Seg Neutrophils # Man Lymphocytes # (Manual) Monocytes % (Manual) Eosinophils % (Manual) Monocytes # (Manual) Eosinophils # (Manual) D-Dimer Heparin Anti-Xa Level ABG pH POC ABG pCO2 POC ABG pO2 ABG pO2 91.1 H ABG HCO3 ABG O2 Saturation ABG Base Excess ABG Hemoglobin ABG Oxyhemoglobin VBG pH ABG Sodium ABG Potassium ABG Glucose Oxyhemoglobin 94.8 L Sodium Potassium Chloride Carbon Dioxide BUN Creatinine Glucose POC Glucose 167 H 182 H Lactic Acid Calcium Ferritin AST Alkaline Phosphatase Magnesium Lactate Dehydrogenase Total Creatine Kinase CK-MB (CK-2) C-Reactive Protein Total Protein Albumin Troponin T HDL Cholesterol Arterial Blood Glucose Urine WBC (Auto) Urine Creatinine Urine Total Protein Phenytoin Coronavirus (PCR) Crossmatch 06/13/20 06/13/20 06/13/20 00:08 05:37 09:09 WBC RBC Hgb Hct MCHC RDW Lymph % (Auto) [place] % (Auto) Eos % (Auto) Lymph # [place] # Lymph # (Auto) [place] # (Auto) Eos # (Auto) Seg Neutrophils % Seg Neuts % (Manual) Lymphocytes % (Manual) Seg Neutrophils # Seg Neutrophils # Man Lymphocytes # (Manual) Monocytes % (Manual) Eosinophils % (Manual) Monocytes # (Manual) Eosinophils # (Manual) D-Dimer Heparin Anti-Xa Level 0.86 H ABG pH POC ABG pCO2 POC ABG pO2 ABG pO2 ABG HCO3 ABG O2 Saturation ABG Base Excess ABG Hemoglobin ABG Oxyhemoglobin VBG pH ABG Sodium ABG Potassium ABG Glucose Oxyhemoglobin Sodium Potassium Chloride Carbon Dioxide BUN Creatinine Glucose POC Glucose 142 H 119 H Lactic Acid Calcium Ferritin AST Alkaline Phosphatase Magnesium Lactate Dehydrogenase Total Creatine Kinase CK-MB (CK-2) C-Reactive Protein Total Protein Albumin Troponin T HDL Cholesterol Arterial Blood Glucose Urine WBC (Auto) Urine Creatinine Urine Total Protein Phenytoin Coronavirus (PCR) Crossmatch 06/13/20 06/13/20 06/13/20 12:28 17:55 21:17 WBC RBC Hgb Hct MCHC RDW Lymph % (Auto) [place] % (Auto) Eos % (Auto) Lymph # [place] # Lymph # (Auto) [place] # (Auto) Eos # (Auto) Seg Neutrophils % Seg Neuts % (Manual) Lymphocytes % (Manual) Seg Neutrophils # Seg Neutrophils # Man Lymphocytes # (Manual) Monocytes % (Manual) Eosinophils % (Manual) Monocytes # (Manual) Eosinophils # (Manual) D-Dimer Heparin Anti-Xa Level ABG pH POC ABG pCO2 POC ABG pO2 ABG pO2 ABG HCO3 ABG O2 Saturation ABG Base Excess ABG Hemoglobin ABG Oxyhemoglobin VBG pH ABG Sodium ABG Potassium ABG Glucose Oxyhemoglobin Sodium Potassium Chloride Carbon Dioxide BUN 61 H Creatinine Glucose 131 H POC Glucose 165 H 174 H Lactic Acid Calcium Ferritin AST Alkaline Phosphatase Magnesium Lactate Dehydrogenase Total Creatine Kinase CK-MB (CK-2) C-Reactive Protein Total Protein Albumin Troponin T HDL Cholesterol Arterial Blood Glucose Urine WBC (Auto) Urine Creatinine Urine Total Protein Phenytoin Coronavirus (PCR) Crossmatch 06/13/20 06/13/20 06/14/20 21:17 23:50 05:34 WBC RBC Hgb Hct MCHC RDW Lymph % (Auto) [place] % (Auto) Eos % (Auto) Lymph # [place] # Lymph # (Auto) [place] # (Auto) Eos # (Auto) Seg Neutrophils % Seg Neuts % (Manual) Lymphocytes % (Manual) Seg Neutrophils # Seg Neutrophils # Man Lymphocytes # (Manual) Monocytes % (Manual) Eosinophils % (Manual) Monocytes # (Manual) Eosinophils # (Manual) D-Dimer Heparin Anti-Xa Level 0.72 H ABG pH POC ABG pCO2 POC ABG pO2 ABG pO2 ABG HCO3 ABG O2 Saturation ABG Base Excess ABG Hemoglobin ABG Oxyhemoglobin VBG pH ABG Sodium ABG Potassium ABG Glucose Oxyhemoglobin Sodium 146 H Potassium Chloride 107.6 H Carbon Dioxide BUN 61 H Creatinine 1.3 H Glucose 135 H POC Glucose 146 H Lactic Acid Calcium Ferritin AST Alkaline Phosphatase Magnesium Lactate Dehydrogenase Total Creatine Kinase CK-MB (CK-2) C-Reactive Protein Total Protein Albumin Troponin T HDL Cholesterol Arterial Blood Glucose Urine WBC (Auto) Urine Creatinine Urine Total Protein Phenytoin Coronavirus (PCR) Crossmatch 09/06/20 09/06/20 09/06/20 06:11 09:28 11:30 WBC RBC Hgb Hct MCHC RDW Lymph % (Auto) [place] % (Auto) Eos % (Auto) Lymph # [place] # Lymph # (Auto) [place] # (Auto) Eos # (Auto) Seg Neutrophils % Seg Neuts % (Manual) Lymphocytes % (Manual) Seg Neutrophils # Seg Neutrophils # Man Lymphocytes # (Manual) Monocytes % (Manual) Eosinophils % (Manual) Monocytes # (Manual) Eosinophils # (Manual) D-Dimer Heparin Anti-Xa Level 0.90 H ABG pH POC ABG pCO2 POC ABG pO2 ABG pO2 ABG HCO3 ABG O2 Saturation ABG Base Excess ABG Hemoglobin ABG Oxyhemoglobin VBG pH ABG Sodium ABG Potassium ABG Glucose Oxyhemoglobin Sodium Potassium Chloride Carbon Dioxide BUN Creatinine Glucose POC Glucose 141 H 186 H Lactic Acid Calcium Ferritin AST Alkaline Phosphatase Magnesium Lactate Dehydrogenase Total Creatine Kinase CK-MB (CK-2) C-Reactive Protein Total Protein Albumin Troponin T HDL Cholesterol Arterial Blood Glucose Urine WBC (Auto) Urine Creatinine Urine Total Protein Phenytoin Coronavirus (PCR) Crossmatch 06/14/20 06/14/20 06/14/20 16:07 18:16 23:51 WBC RBC Hgb Hct MCHC RDW Lymph % (Auto) [place] % (Auto) Eos % (Auto) Lymph # [place] # Lymph # (Auto) [place] # (Auto) Eos # (Auto) Seg Neutrophils % Seg Neuts % (Manual) Lymphocytes % (Manual) Seg Neutrophils # Seg Neutrophils # Man Lymphocytes # (Manual) Monocytes % (Manual) Eosinophils % (Manual) Monocytes # (Manual) Eosinophils # (Manual) D-Dimer Heparin Anti-Xa Level 0.82 H ABG pH POC ABG pCO2 POC ABG pO2 ABG pO2 ABG HCO3 ABG O2 Saturation ABG Base Excess ABG Hemoglobin ABG Oxyhemoglobin VBG pH ABG Sodium ABG Potassium ABG Glucose Oxyhemoglobin Sodium Potassium Chloride Carbon Dioxide BUN Creatinine Glucose POC Glucose 106 H 154 H Lactic Acid Calcium Ferritin AST Alkaline Phosphatase Magnesium Lactate Dehydrogenase Total Creatine Kinase CK-MB (CK-2) C-Reactive Protein Total Protein Albumin Troponin T HDL Cholesterol Arterial Blood Glucose Urine WBC (Auto) Urine Creatinine Urine Total Protein Phenytoin Coronavirus (PCR) Crossmatch 06/15/20 06/15/20 06/15/20 04:24 04:24 05:59 WBC RBC 2.75 L Hgb 7.9 L Hct 24.0 L MCHC RDW 16.4 H Lymph % (Auto) 12.9 L [place] % (Auto) 8.7 H Eos % (Auto) 4.6 H Lymph # 1.1 L [place] # Lymph # (Auto) [place] # (Auto) Eos # (Auto) Seg Neutrophils % 73.2 H Seg Neuts % (Manual) Lymphocytes % (Manual) Seg Neutrophils # Seg Neutrophils # Man Lymphocytes # (Manual) Monocytes % (Manual) Eosinophils % (Manual) Monocytes # (Manual) Eosinophils # (Manual) D-Dimer Heparin Anti-Xa Level ABG pH POC ABG pCO2 POC ABG pO2 ABG pO2 ABG HCO3 ABG O2 Saturation ABG Base Excess ABG Hemoglobin ABG Oxyhemoglobin VBG pH ABG Sodium ABG Potassium ABG Glucose Oxyhemoglobin Sodium Potassium 3.4 L Chloride Carbon Dioxide BUN 55 H Creatinine 1.3 H Glucose 142 H POC Glucose 131 H Lactic Acid Calcium Ferritin AST Alkaline Phosphatase Magnesium Lactate Dehydrogenase Total Creatine Kinase CK-MB (CK-2) C-Reactive Protein Total Protein Albumin Troponin T HDL Cholesterol Arterial Blood Glucose Urine WBC (Auto) Urine Creatinine Urine Total Protein Phenytoin Coronavirus (PCR) Crossmatch 06/15/20 06/15/20 06/16/20 12:33 17:07 00:22 WBC RBC Hgb Hct MCHC RDW Lymph % (Auto) [place] % (Auto) Eos % (Auto) Lymph # [place] # Lymph # (Auto) [place] # (Auto) Eos # (Auto) Seg Neutrophils % Seg Neuts % (Manual) Lymphocytes % (Manual) Seg Neutrophils # Seg Neutrophils # Man Lymphocytes # (Manual) Monocytes % (Manual) Eosinophils % (Manual) Monocytes # (Manual) Eosinophils # (Manual) D-Dimer Heparin Anti-Xa Level 0.21 L ABG pH POC ABG pCO2 POC ABG pO2 ABG pO2 ABG HCO3 ABG O2 Saturation ABG Base Excess ABG Hemoglobin ABG Oxyhemoglobin VBG pH ABG Sodium ABG Potassium ABG Glucose Oxyhemoglobin Sodium Potassium Chloride Carbon Dioxide BUN Creatinine Glucose POC Glucose 180 H 185 H Lactic Acid Calcium Ferritin AST Alkaline Phosphatase Magnesium Lactate Dehydrogenase Total Creatine Kinase CK-MB (CK-2) C-Reactive Protein Total Protein Albumin Troponin T HDL Cholesterol Arterial Blood Glucose Urine WBC (Auto) Urine Creatinine Urine Total Protein Phenytoin Coronavirus (PCR) Crossmatch 06/16/20 06/16/20 06/16/20 01:45 08:06 09:15 WBC RBC Hgb Hct MCHC RDW Lymph % (Auto) [place] % (Auto) Eos % (Auto) Lymph # [place] # Lymph # (Auto) [place] # (Auto) Eos # (Auto) Seg Neutrophils % Seg Neuts % (Manual) Lymphocytes % (Manual) Seg Neutrophils # Seg Neutrophils # Man Lymphocytes # (Manual) Monocytes % (Manual) Eosinophils % (Manual) Monocytes # (Manual) Eosinophils # (Manual) D-Dimer Heparin Anti-Xa Level ABG pH POC ABG pCO2 POC ABG pO2 ABG pO2 ABG HCO3 ABG O2 Saturation ABG Base Excess ABG Hemoglobin ABG Oxyhemoglobin VBG pH ABG Sodium ABG Potassium ABG Glucose Oxyhemoglobin Sodium Potassium Chloride Carbon Dioxide BUN 49 H Creatinine Glucose 154 H POC Glucose 140 H 171 H Lactic Acid Calcium Ferritin AST Alkaline Phosphatase Magnesium Lactate Dehydrogenase Total Creatine Kinase CK-MB (CK-2) C-Reactive Protein Total Protein Albumin Troponin T HDL Cholesterol Arterial Blood Glucose Urine WBC (Auto) Urine Creatinine Urine Total Protein Phenytoin Coronavirus (PCR) Crossmatch 06/16/20 06/16/20 06/16/20 10:46 12:33 17:54 WBC RBC Hgb Hct MCHC RDW Lymph % (Auto) [place] % (Auto) Eos % (Auto) Lymph # [place] # Lymph # (Auto) [place] # (Auto) Eos # (Auto) Seg Neutrophils % Seg Neuts % (Manual) Lymphocytes % (Manual) Seg Neutrophils # Seg Neutrophils # Man Lymphocytes # (Manual) Monocytes % (Manual) Eosinophils % (Manual) Monocytes # (Manual) Eosinophils # (Manual) D-Dimer Heparin Anti-Xa Level 0.12 L ABG pH POC ABG pCO2 POC ABG pO2 ABG pO2 ABG HCO3 ABG O2 Saturation ABG Base Excess ABG Hemoglobin ABG Oxyhemoglobin VBG pH ABG Sodium ABG Potassium ABG Glucose Oxyhemoglobin Sodium Potassium Chloride Carbon Dioxide BUN Creatinine Glucose POC Glucose 166 H 151 H Lactic Acid Calcium Ferritin AST Alkaline Phosphatase Magnesium Lactate Dehydrogenase Total Creatine Kinase CK-MB (CK-2) C-Reactive Protein Total Protein Albumin Troponin T HDL Cholesterol Arterial Blood Glucose Urine WBC (Auto) Urine Creatinine Urine Total Protein Phenytoin Coronavirus (PCR) Crossmatch 09/08/20 09/09/20 09/09/20 18:47 00:00 02:19 WBC RBC Hgb Hct MCHC RDW Lymph % (Auto) [place] % (Auto) Eos % (Auto) Lymph # [place] # Lymph # (Auto) [place] # (Auto) Eos # (Auto) Seg Neutrophils % Seg Neuts % (Manual) Lymphocytes % (Manual) Seg Neutrophils # Seg Neutrophils # Man Lymphocytes # (Manual) Monocytes % (Manual) Eosinophils % (Manual) Monocytes # (Manual) Eosinophils # (Manual) D-Dimer Heparin Anti-Xa Level 0.73 H 0.77 H ABG pH POC ABG pCO2 POC ABG pO2 ABG pO2 ABG HCO3 ABG O2 Saturation ABG Base Excess ABG Hemoglobin ABG Oxyhemoglobin VBG pH ABG Sodium ABG Potassium ABG Glucose Oxyhemoglobin Sodium Potassium Chloride Carbon Dioxide BUN Creatinine Glucose POC Glucose 139 H Lactic Acid Calcium Ferritin AST Alkaline Phosphatase Magnesium Lactate Dehydrogenase Total Creatine Kinase CK-MB (CK-2) C-Reactive Protein Total Protein Albumin Troponin T HDL Cholesterol Arterial Blood Glucose Urine WBC (Auto) Urine Creatinine Urine Total Protein Phenytoin Coronavirus (PCR) Crossmatch 06/17/20 06/17/20 06/17/20 06:07 11:42 16:43 WBC RBC Hgb Hct MCHC RDW Lymph % (Auto) [place] % (Auto) Eos % (Auto) Lymph # [place] # Lymph # (Auto) [place] # (Auto) Eos # (Auto) Seg Neutrophils % Seg Neuts % (Manual) Lymphocytes % (Manual) Seg Neutrophils # Seg Neutrophils # Man Lymphocytes # (Manual) Monocytes % (Manual) Eosinophils % (Manual) Monocytes # (Manual) Eosinophils # (Manual) D-Dimer Heparin Anti-Xa Level 0.73 H ABG pH POC ABG pCO2 POC ABG pO2 ABG pO2 ABG HCO3 ABG O2 Saturation ABG Base Excess ABG Hemoglobin ABG Oxyhemoglobin VBG pH ABG Sodium ABG Potassium ABG Glucose Oxyhemoglobin Sodium Potassium Chloride Carbon Dioxide BUN Creatinine Glucose POC Glucose 169 H 169 H Lactic Acid Calcium Ferritin AST Alkaline Phosphatase Magnesium Lactate Dehydrogenase Total Creatine Kinase CK-MB (CK-2) C-Reactive Protein Total Protein Albumin Troponin T HDL Cholesterol Arterial Blood Glucose Urine WBC (Auto) Urine Creatinine Urine Total Protein Phenytoin Coronavirus (PCR) Crossmatch 06/17/20 06/17/20 06/17/20 18:18 23:08 23:16 WBC RBC Hgb Hct MCHC RDW Lymph % (Auto) [place] % (Auto) Eos % (Auto) Lymph # [place] # Lymph # (Auto) [place] # (Auto) Eos # (Auto) Seg Neutrophils % Seg Neuts % (Manual) Lymphocytes % (Manual) Seg Neutrophils # Seg Neutrophils # Man Lymphocytes # (Manual) Monocytes % (Manual) Eosinophils % (Manual) Monocytes # (Manual) Eosinophils # (Manual) D-Dimer Heparin Anti-Xa Level 0.71 H ABG pH POC ABG pCO2 POC ABG pO2 ABG pO2 ABG HCO3 ABG O2 Saturation ABG Base Excess ABG Hemoglobin ABG Oxyhemoglobin VBG pH ABG Sodium ABG Potassium ABG Glucose Oxyhemoglobin Sodium Potassium Chloride Carbon Dioxide BUN Creatinine Glucose POC Glucose 159 H 134 H Lactic Acid Calcium Ferritin AST Alkaline Phosphatase Magnesium Lactate Dehydrogenase Total Creatine Kinase CK-MB (CK-2) C-Reactive Protein Total Protein Albumin Troponin T HDL Cholesterol Arterial Blood Glucose Urine WBC (Auto) Urine Creatinine Urine Total Protein Phenytoin Coronavirus (PCR) Crossmatch 06/18/20 06/18/20 06/18/20 04:42 05:52 11:50 WBC RBC Hgb Hct MCHC RDW Lymph % (Auto) [place] % (Auto) Eos % (Auto) Lymph # [place] # Lymph # (Auto) [place] # (Auto) Eos # (Auto) Seg Neutrophils % Seg Neuts % (Manual) Lymphocytes % (Manual) Seg Neutrophils # Seg Neutrophils # Man Lymphocytes # (Manual) Monocytes % (Manual) Eosinophils % (Manual) Monocytes # (Manual) Eosinophils # (Manual) D-Dimer Heparin Anti-Xa Level ABG pH POC ABG pCO2 POC ABG pO2 ABG pO2 ABG HCO3 ABG O2 Saturation ABG Base Excess ABG Hemoglobin ABG Oxyhemoglobin VBG pH ABG Sodium ABG Potassium ABG Glucose Oxyhemoglobin Sodium Potassium Chloride Carbon Dioxide BUN 44 H Creatinine Glucose 115 H POC Glucose 171 H 167 H Lactic Acid Calcium Ferritin AST Alkaline Phosphatase Magnesium Lactate Dehydrogenase Total Creatine Kinase CK-MB (CK-2) C-Reactive Protein Total Protein Albumin Troponin T HDL Cholesterol Arterial Blood Glucose Urine WBC (Auto) Urine Creatinine Urine Total Protein Phenytoin Coronavirus (PCR) Crossmatch 06/18/20 06/19/20 06/19/20 23:46 05:48 07:52 WBC RBC Hgb Hct MCHC RDW Lymph % (Auto) [place] % (Auto) Eos % (Auto) Lymph # [place] # Lymph # (Auto) [place] # (Auto) Eos # (Auto) Seg Neutrophils % Seg Neuts % (Manual) Lymphocytes % (Manual) Seg Neutrophils # Seg Neutrophils # Man Lymphocytes # (Manual) Monocytes % (Manual) Eosinophils % (Manual) Monocytes # (Manual) Eosinophils # (Manual) D-Dimer Heparin Anti-Xa Level ABG pH POC ABG pCO2 POC ABG pO2 ABG pO2 ABG HCO3 ABG O2 Saturation ABG Base Excess ABG Hemoglobin ABG Oxyhemoglobin VBG pH ABG Sodium ABG Potassium ABG Glucose Oxyhemoglobin Sodium Potassium Chloride Carbon Dioxide BUN Creatinine Glucose POC Glucose 130 H 207 H 175 H Lactic Acid Calcium Ferritin AST Alkaline Phosphatase Magnesium Lactate Dehydrogenase Total Creatine Kinase CK-MB (CK-2) C-Reactive Protein Total Protein Albumin Troponin T HDL Cholesterol Arterial Blood Glucose Urine WBC (Auto) Urine Creatinine Urine Total Protein Phenytoin Coronavirus (PCR) Crossmatch 06/19/20 06/19/20 06/20/20 11:42 22:54 05:17 WBC RBC Hgb Hct MCHC RDW Lymph % (Auto) [place] % (Auto) Eos % (Auto) Lymph # [place] # Lymph # (Auto) [place] # (Auto) Eos # (Auto) Seg Neutrophils % Seg Neuts % (Manual) Lymphocytes % (Manual) Seg Neutrophils # Seg Neutrophils # Man Lymphocytes # (Manual) Monocytes % (Manual) Eosinophils % (Manual) Monocytes # (Manual) Eosinophils # (Manual) D-Dimer Heparin Anti-Xa Level ABG pH POC ABG pCO2 POC ABG pO2 ABG pO2 ABG HCO3 ABG O2 Saturation ABG Base Excess ABG Hemoglobin ABG Oxyhemoglobin VBG pH ABG Sodium ABG Potassium ABG Glucose Oxyhemoglobin Sodium Potassium Chloride Carbon Dioxide BUN Creatinine Glucose POC Glucose 166 H 135 H 218 H Lactic Acid Calcium Ferritin AST Alkaline Phosphatase Magnesium Lactate Dehydrogenase Total Creatine Kinase CK-MB (CK-2) C-Reactive Protein Total Protein Albumin Troponin T HDL Cholesterol Arterial Blood Glucose Urine WBC (Auto) Urine Creatinine Urine Total Protein Phenytoin Coronavirus (PCR) Crossmatch 06/20/20 06/20/20 06/20/20 12:04 16:25 16:35 WBC RBC Hgb Hct MCHC RDW Lymph % (Auto) [place] % (Auto) Eos % (Auto) Lymph # [place] # Lymph # (Auto) [place] # (Auto) Eos # (Auto) Seg Neutrophils % Seg Neuts % (Manual) Lymphocytes % (Manual) Seg Neutrophils # Seg Neutrophils # Man Lymphocytes # (Manual) Monocytes % (Manual) Eosinophils % (Manual) Monocytes # (Manual) Eosinophils # (Manual) D-Dimer Heparin Anti-Xa Level ABG pH POC ABG pCO2 POC ABG pO2 ABG pO2 59.6 L ABG HCO3 28.7 H ABG O2 Saturation 93.5 L ABG Base Excess 3.4 H ABG Hemoglobin 7.2 L ABG Oxyhemoglobin VBG pH ABG Sodium ABG Potassium ABG Glucose Oxyhemoglobin 91.3 L Sodium Potassium Chloride Carbon Dioxide BUN Creatinine Glucose POC Glucose 194 H 137 H Lactic Acid Calcium Ferritin AST Alkaline Phosphatase Magnesium Lactate Dehydrogenase Total Creatine Kinase CK-MB (CK-2) C-Reactive Protein Total Protein Albumin Troponin T HDL Cholesterol Arterial Blood Glucose Urine WBC (Auto) Urine Creatinine Urine Total Protein Phenytoin Coronavirus (PCR) Crossmatch 06/20/20 06/21/20 06/21/20 23:59 06:25 12:01 WBC RBC Hgb Hct MCHC RDW Lymph % (Auto) [place] % (Auto) Eos % (Auto) Lymph # [place] # Lymph # (Auto) [place] # (Auto) Eos # (Auto) Seg Neutrophils % Seg Neuts % (Manual) Lymphocytes % (Manual) Seg Neutrophils # Seg Neutrophils # Man Lymphocytes # (Manual) Monocytes % (Manual) Eosinophils % (Manual) Monocytes # (Manual) Eosinophils # (Manual) D-Dimer Heparin Anti-Xa Level ABG pH POC ABG pCO2 POC ABG pO2 ABG pO2 ABG HCO3 ABG O2 Saturation ABG Base Excess ABG Hemoglobin ABG Oxyhemoglobin VBG pH ABG Sodium ABG Potassium ABG Glucose Oxyhemoglobin Sodium Potassium Chloride Carbon Dioxide BUN Creatinine Glucose POC Glucose 156 H 177 H 195 H Lactic Acid Calcium Ferritin AST Alkaline Phosphatase Magnesium Lactate Dehydrogenase Total Creatine Kinase CK-MB (CK-2) C-Reactive Protein Total Protein Albumin Troponin T HDL Cholesterol Arterial Blood Glucose Urine WBC (Auto) Urine Creatinine Urine Total Protein Phenytoin Coronavirus (PCR) Crossmatch 06/21/20 06/21/20 06/22/20 17:04 21:51 05:06 WBC RBC Hgb Hct MCHC RDW Lymph % (Auto) [place] % (Auto) Eos % (Auto) Lymph # [place] # Lymph # (Auto) [place] # (Auto) Eos # (Auto) Seg Neutrophils % Seg Neuts % (Manual) Lymphocytes % (Manual) Seg Neutrophils # Seg Neutrophils # Man Lymphocytes # (Manual) Monocytes % (Manual) Eosinophils % (Manual) Monocytes # (Manual) Eosinophils # (Manual) D-Dimer Heparin Anti-Xa Level ABG pH POC ABG pCO2 POC ABG pO2 ABG pO2 ABG HCO3 ABG O2 Saturation ABG Base Excess ABG Hemoglobin ABG Oxyhemoglobin VBG pH ABG Sodium ABG Potassium ABG Glucose Oxyhemoglobin Sodium Potassium Chloride Carbon Dioxide BUN Creatinine Glucose POC Glucose 156 H 154 H 167 H Lactic Acid Calcium Ferritin AST Alkaline Phosphatase Magnesium Lactate Dehydrogenase Total Creatine Kinase CK-MB (CK-2) C-Reactive Protein Total Protein Albumin Troponin T HDL Cholesterol Arterial Blood Glucose Urine WBC (Auto) Urine Creatinine Urine Total Protein Phenytoin Coronavirus (PCR) Crossmatch 06/22/20 06/22/20 06/22/20 11:20 15:27 16:58 WBC RBC Hgb Hct MCHC RDW Lymph % (Auto) [place] % (Auto) Eos % (Auto) Lymph # [place] # Lymph # (Auto) [place] # (Auto) Eos # (Auto) Seg Neutrophils % Seg Neuts % (Manual) Lymphocytes % (Manual) Seg Neutrophils # Seg Neutrophils # Man Lymphocytes # (Manual) Monocytes % (Manual) Eosinophils % (Manual) Monocytes # (Manual) Eosinophils # (Manual) D-Dimer Heparin Anti-Xa Level ABG pH 7.206 L POC ABG pCO2 79.9 H POC ABG pO2 ABG pO2 ABG HCO3 ABG O2 Saturation ABG Base Excess ABG Hemoglobin 8.3 L ABG Oxyhemoglobin VBG pH ABG Sodium ABG Potassium ABG Glucose Oxyhemoglobin Sodium Potassium Chloride Carbon Dioxide BUN Creatinine Glucose POC Glucose 181 H 230 H Lactic Acid Calcium Ferritin AST Alkaline Phosphatase Magnesium Lactate Dehydrogenase Total Creatine Kinase CK-MB (CK-2) C-Reactive Protein Total Protein Albumin Troponin T HDL Cholesterol Arterial Blood Glucose Urine WBC (Auto) Urine Creatinine Urine Total Protein Phenytoin Coronavirus (PCR) Crossmatch 06/22/20 06/23/20 06/23/20 22:26 05:49 05:49 WBC RBC 2.58 L Hgb 7.4 L Hct 23.2 L MCHC RDW 17.0 H Lymph % (Auto) [place] % (Auto) 11.2 H Eos % (Auto) Lymph # 1.0 L [place] # Lymph # (Auto) [place] # (Auto) Eos # (Auto) Seg Neutrophils % Seg Neuts % (Manual) Lymphocytes % (Manual) Seg Neutrophils # Seg Neutrophils # Man Lymphocytes # (Manual) Monocytes % (Manual) Eosinophils % (Manual) Monocytes # (Manual) Eosinophils # (Manual) D-Dimer Heparin Anti-Xa Level ABG pH POC ABG pCO2 POC ABG pO2 ABG pO2 ABG HCO3 ABG O2 Saturation ABG Base Excess ABG Hemoglobin ABG Oxyhemoglobin VBG pH ABG Sodium ABG Potassium ABG Glucose Oxyhemoglobin Sodium Potassium Chloride Carbon Dioxide BUN 68 H Creatinine 2.4 H Glucose 198 H POC Glucose 195 H Lactic Acid Calcium Ferritin AST Alkaline Phosphatase Magnesium Lactate Dehydrogenase Total Creatine Kinase CK-MB (CK-2) C-Reactive Protein Total Protein Albumin Troponin T HDL Cholesterol Arterial Blood Glucose Urine WBC (Auto) Urine Creatinine Urine Total Protein Phenytoin Coronavirus (PCR) Crossmatch 06/23/20 06/23/20 06/23/20 05:50 12:29 12:34 WBC RBC Hgb Hct MCHC RDW Lymph % (Auto) [place] % (Auto) Eos % (Auto) Lymph # [place] # Lymph # (Auto) [place] # (Auto) Eos # (Auto) Seg Neutrophils % Seg Neuts % (Manual) Lymphocytes % (Manual) Seg Neutrophils # Seg Neutrophils # Man Lymphocytes # (Manual) Monocytes % (Manual) Eosinophils % (Manual) Monocytes # (Manual) Eosinophils # (Manual) D-Dimer Heparin Anti-Xa Level ABG pH POC ABG pCO2 54.7 H POC ABG pO2 68.8 L ABG pO2 ABG HCO3 ABG O2 Saturation ABG Base Excess ABG Hemoglobin 9.8 L ABG Oxyhemoglobin 92.6 L VBG pH ABG Sodium ABG Potassium ABG Glucose Oxyhemoglobin Sodium Potassium Chloride Carbon Dioxide BUN Creatinine Glucose POC Glucose 202 H 218 H Lactic Acid Calcium Ferritin AST Alkaline Phosphatase Magnesium Lactate Dehydrogenase Total Creatine Kinase CK-MB (CK-2) C-Reactive Protein Total Protein Albumin Troponin T HDL Cholesterol Arterial Blood Glucose Urine WBC (Auto) Urine Creatinine Urine Total Protein Phenytoin Coronavirus (PCR) Crossmatch 06/23/20 06/23/20 06/24/20 16:02 22:22 01:06 WBC RBC Hgb Hct MCHC RDW Lymph % (Auto) [place] % (Auto) Eos % (Auto) Lymph # [place] # Lymph # (Auto) [place] # (Auto) Eos # (Auto) Seg Neutrophils % Seg Neuts % (Manual) Lymphocytes % (Manual) Seg Neutrophils # Seg Neutrophils # Man Lymphocytes # (Manual) Monocytes % (Manual) Eosinophils % (Manual) Monocytes # (Manual) Eosinophils # (Manual) D-Dimer Heparin Anti-Xa Level ABG pH POC ABG pCO2 POC ABG pO2 ABG pO2 ABG HCO3 ABG O2 Saturation ABG Base Excess ABG Hemoglobin ABG Oxyhemoglobin VBG pH ABG Sodium ABG Potassium ABG Glucose Oxyhemoglobin Sodium Potassium Chloride Carbon Dioxide BUN Creatinine Glucose POC Glucose 190 H 166 H 171 H Lactic Acid Calcium Ferritin AST Alkaline Phosphatase Magnesium Lactate Dehydrogenase Total Creatine Kinase CK-MB (CK-2) C-Reactive Protein Total Protein Albumin Troponin T HDL Cholesterol Arterial Blood Glucose Urine WBC (Auto) Urine Creatinine Urine Total Protein Phenytoin Coronavirus (PCR) Crossmatch 06/24/20 06/24/20 06/24/20 04:48 05:35 11:48 WBC RBC Hgb Hct MCHC RDW Lymph % (Auto) [place] % (Auto) Eos % (Auto) Lymph # [place] # Lymph # (Auto) [place] # (Auto) Eos # (Auto) Seg Neutrophils % Seg Neuts % (Manual) Lymphocytes % (Manual) Seg Neutrophils # Seg Neutrophils # Man Lymphocytes # (Manual) Monocytes % (Manual) Eosinophils % (Manual) Monocytes # (Manual) Eosinophils # (Manual) D-Dimer Heparin Anti-Xa Level ABG pH POC ABG pCO2 POC ABG pO2 ABG pO2 ABG HCO3 ABG O2 Saturation ABG Base Excess ABG Hemoglobin ABG Oxyhemoglobin VBG pH ABG Sodium ABG Potassium ABG Glucose Oxyhemoglobin Sodium Potassium Chloride Carbon Dioxide BUN 75 H Creatinine 2.6 H Glucose 179 H POC Glucose 172 H 153 H Lactic Acid Calcium Ferritin AST Alkaline Phosphatase Magnesium Lactate Dehydrogenase Total Creatine Kinase CK-MB (CK-2) C-Reactive Protein Total Protein Albumin Troponin T HDL Cholesterol Arterial Blood Glucose Urine WBC (Auto) Urine Creatinine Urine Total Protein Phenytoin Coronavirus (PCR) Crossmatch 06/24/20 06/24/20 06/25/20 16:38 21:52 12:00 WBC RBC Hgb Hct MCHC RDW Lymph % (Auto) [place] % (Auto) Eos % (Auto) Lymph # [place] # Lymph # (Auto) [place] # (Auto) Eos # (Auto) Seg Neutrophils % Seg Neuts % (Manual) Lymphocytes % (Manual) Seg Neutrophils # Seg Neutrophils # Man Lymphocytes # (Manual) Monocytes % (Manual) Eosinophils % (Manual) Monocytes # (Manual) Eosinophils # (Manual) D-Dimer Heparin Anti-Xa Level ABG pH POC ABG pCO2 POC ABG pO2 ABG pO2 ABG HCO3 ABG O2 Saturation ABG Base Excess ABG Hemoglobin ABG Oxyhemoglobin VBG pH ABG Sodium ABG Potassium ABG Glucose Oxyhemoglobin Sodium Potassium Chloride Carbon Dioxide BUN Creatinine Glucose POC Glucose 123 H 115 H 203 H Lactic Acid Calcium Ferritin AST Alkaline Phosphatase Magnesium Lactate Dehydrogenase Total Creatine Kinase CK-MB (CK-2) C-Reactive Protein Total Protein Albumin Troponin T HDL Cholesterol Arterial Blood Glucose Urine WBC (Auto) Urine Creatinine Urine Total Protein Phenytoin Coronavirus (PCR) Crossmatch 06/25/20 06/25/20 06/25/20 15:43 16:37 23:02 WBC RBC Hgb Hct MCHC RDW Lymph % (Auto) [place] % (Auto) Eos % (Auto) Lymph # [place] # Lymph # (Auto) [place] # (Auto) Eos # (Auto) Seg Neutrophils % Seg Neuts % (Manual) Lymphocytes % (Manual) Seg Neutrophils # Seg Neutrophils # Man Lymphocytes # (Manual) Monocytes % (Manual) Eosinophils % (Manual) Monocytes # (Manual) Eosinophils # (Manual) D-Dimer Heparin Anti-Xa Level ABG pH POC ABG pCO2 POC ABG pO2 ABG pO2 ABG HCO3 ABG O2 Saturation ABG Base Excess ABG Hemoglobin ABG Oxyhemoglobin VBG pH ABG Sodium ABG Potassium ABG Glucose Oxyhemoglobin Sodium Potassium Chloride Carbon Dioxide BUN 71 H Creatinine 1.8 H Glucose 170 H POC Glucose 191 H 126 H Lactic Acid Calcium 8.2 L Ferritin AST Alkaline Phosphatase Magnesium Lactate Dehydrogenase Total Creatine Kinase CK-MB (CK-2) C-Reactive Protein Total Protein Albumin Troponin T HDL Cholesterol Arterial Blood Glucose Urine WBC (Auto) Urine Creatinine Urine Total Protein Phenytoin Coronavirus (PCR) Crossmatch 06/26/20 06/26/20 06/26/20 06:34 06:34 09:27 WBC RBC 2.41 L Hgb 6.9 L Hct 21.5 L MCHC RDW 16.7 H Lymph % (Auto) 10.9 L [place] % (Auto) 9.6 H Eos % (Auto) Lymph # 0.7 L [place] # Lymph # (Auto) [place] # (Auto) Eos # (Auto) Seg Neutrophils % 75.4 H Seg Neuts % (Manual) Lymphocytes % (Manual) Seg Neutrophils # Seg Neutrophils # Man Lymphocytes # (Manual) Monocytes % (Manual) Eosinophils % (Manual) Monocytes # (Manual) Eosinophils # (Manual) D-Dimer Heparin Anti-Xa Level ABG pH POC ABG pCO2 POC ABG pO2 ABG pO2 ABG HCO3 ABG O2 Saturation ABG Base Excess ABG Hemoglobin ABG Oxyhemoglobin VBG pH ABG Sodium ABG Potassium ABG Glucose Oxyhemoglobin Sodium Potassium Chloride Carbon Dioxide BUN 77 H Creatinine 1.9 H Glucose 190 H POC Glucose Lactic Acid Calcium Ferritin AST Alkaline Phosphatase Magnesium Lactate Dehydrogenase Total Creatine Kinase CK-MB (CK-2) C-Reactive Protein Total Protein Albumin Troponin T HDL Cholesterol Arterial Blood Glucose Urine WBC (Auto) Urine Creatinine Urine Total Protein Phenytoin Coronavirus (PCR) Crossmatch See Detail 06/26/20 06/26/20 06/26/20 12:15 16:28 17:28 WBC RBC Hgb Hct MCHC RDW Lymph % (Auto) [place] % (Auto) Eos % (Auto) Lymph # [place] # Lymph # (Auto) [place] # (Auto) Eos # (Auto) Seg Neutrophils % Seg Neuts % (Manual) Lymphocytes % (Manual) Seg Neutrophils # Seg Neutrophils # Man Lymphocytes # (Manual) Monocytes % (Manual) Eosinophils % (Manual) Monocytes # (Manual) Eosinophils # (Manual) D-Dimer Heparin Anti-Xa Level ABG pH POC ABG pCO2 POC ABG pO2 ABG pO2 ABG HCO3 ABG O2 Saturation ABG Base Excess ABG Hemoglobin ABG Oxyhemoglobin VBG pH ABG Sodium ABG Potassium ABG Glucose Oxyhemoglobin Sodium Potassium Chloride Carbon Dioxide BUN Creatinine Glucose POC Glucose 187 H 149 H 189 H Lactic Acid Calcium Ferritin AST Alkaline Phosphatase Magnesium Lactate Dehydrogenase Total Creatine Kinase CK-MB (CK-2) C-Reactive Protein Total Protein Albumin Troponin T HDL Cholesterol Arterial Blood Glucose Urine WBC (Auto) Urine Creatinine Urine Total Protein Phenytoin Coronavirus (PCR) Crossmatch 06/26/20 06/26/20 06/26/20 18:30 18:30 18:30 WBC RBC 2.87 L Hgb 8.2 L Hct 25.9 L MCHC RDW 17.8 H Lymph % (Auto) [place] % (Auto) Eos % (Auto) Lymph # [place] # Lymph # (Auto) [place] # (Auto) Eos # (Auto) Seg Neutrophils % Seg Neuts % (Manual) 83.0 H Lymphocytes % (Manual) 8.0 L Seg Neutrophils # Seg Neutrophils # Man Lymphocytes # (Manual) 0.6 L Monocytes % (Manual) Eosinophils % (Manual) Monocytes # (Manual) Eosinophils # (Manual) D-Dimer Heparin Anti-Xa Level ABG pH POC ABG pCO2 POC ABG pO2 ABG pO2 ABG HCO3 ABG O2 Saturation ABG Base Excess ABG Hemoglobin ABG Oxyhemoglobin VBG pH ABG Sodium ABG Potassium ABG Glucose Oxyhemoglobin Sodium Potassium Chloride Carbon Dioxide BUN 80 H Creatinine 2.1 H Glucose 260 H POC Glucose Lactic Acid 4.30 H* Calcium 8.3 L Ferritin AST Alkaline Phosphatase Magnesium Lactate Dehydrogenase Total Creatine Kinase CK-MB (CK-2) C-Reactive Protein Total Protein Albumin Troponin T HDL Cholesterol Arterial Blood Glucose Urine WBC (Auto) Urine Creatinine Urine Total Protein Phenytoin Coronavirus (PCR) Crossmatch 06/26/20 06/27/20 06/27/20 18:50 01:00 04:29 WBC RBC Hgb Hct MCHC RDW Lymph % (Auto) [place] % (Auto) Eos % (Auto) Lymph # [place] # Lymph # (Auto) [place] # (Auto) Eos # (Auto) Seg Neutrophils % Seg Neuts % (Manual) Lymphocytes % (Manual) Seg Neutrophils # Seg Neutrophils # Man Lymphocytes # (Manual) Monocytes % (Manual) Eosinophils % (Manual) Monocytes # (Manual) Eosinophils # (Manual) D-Dimer Heparin Anti-Xa Level ABG pH 7.296 L POC ABG pCO2 POC ABG pO2 ABG pO2 116.5 H 200.5 H ABG HCO3 28.4 H ABG O2 Saturation 99.3 H ABG Base Excess 3.7 H ABG Hemoglobin 5.6 L ABG Oxyhemoglobin VBG pH ABG Sodium ABG Potassium ABG Glucose Oxyhemoglobin Sodium Potassium Chloride Carbon Dioxide BUN Creatinine Glucose POC Glucose 123 H Lactic Acid Calcium Ferritin AST Alkaline Phosphatase Magnesium Lactate Dehydrogenase Total Creatine Kinase CK-MB (CK-2) C-Reactive Protein Total Protein Albumin Troponin T HDL Cholesterol Arterial Blood Glucose Urine WBC (Auto) Urine Creatinine Urine Total Protein Phenytoin Coronavirus (PCR) Crossmatch 06/27/20 06/27/20 06/27/20 05:00 05:00 05:00 WBC RBC 2.75 L Hgb 7.9 L Hct 24.3 L MCHC RDW 17.1 H Lymph % (Auto) 8.5 L [place] % (Auto) 12.6 H Eos % (Auto) Lymph # 0.7 L [place] # 1.0 H Lymph # (Auto) [place] # (Auto) Eos # (Auto) Seg Neutrophils % 77.5 H Seg Neuts % (Manual) Lymphocytes % (Manual) Seg Neutrophils # Seg Neutrophils # Man Lymphocytes # (Manual) Monocytes % (Manual) Eosinophils % (Manual) Monocytes # (Manual) Eosinophils # (Manual) D-Dimer Heparin Anti-Xa Level ABG pH POC ABG pCO2 POC ABG pO2 ABG pO2 ABG HCO3 ABG O2 Saturation ABG Base Excess ABG Hemoglobin ABG Oxyhemoglobin VBG pH ABG Sodium ABG Potassium ABG Glucose Oxyhemoglobin Sodium Potassium Chloride Carbon Dioxide BUN 80 H Creatinine 2.0 H Glucose 129 H POC Glucose Lactic Acid 0.60 L Calcium 7.9 L Ferritin AST Alkaline Phosphatase Magnesium Lactate Dehydrogenase Total Creatine Kinase CK-MB (CK-2) C-Reactive Protein Total Protein Albumin Troponin T HDL Cholesterol Arterial Blood Glucose Urine WBC (Auto) Urine Creatinine Urine Total Protein Phenytoin Coronavirus (PCR) Crossmatch 06/27/20 06/27/20 06/27/20 05:23 13:46 17:25 WBC RBC Hgb Hct MCHC RDW Lymph % (Auto) [place] % (Auto) Eos % (Auto) Lymph # [place] # Lymph # (Auto) [place] # (Auto) Eos # (Auto) Seg Neutrophils % Seg Neuts % (Manual) Lymphocytes % (Manual) Seg Neutrophils # Seg Neutrophils # Man Lymphocytes # (Manual) Monocytes % (Manual) Eosinophils % (Manual) Monocytes # (Manual) Eosinophils # (Manual) D-Dimer Heparin Anti-Xa Level ABG pH POC ABG pCO2 POC ABG pO2 ABG pO2 ABG HCO3 ABG O2 Saturation ABG Base Excess ABG Hemoglobin ABG Oxyhemoglobin VBG pH ABG Sodium ABG Potassium ABG Glucose Oxyhemoglobin Sodium Potassium Chloride Carbon Dioxide BUN Creatinine Glucose POC Glucose 109 H 158 H 162 H Lactic Acid Calcium Ferritin AST Alkaline Phosphatase Magnesium Lactate Dehydrogenase Total Creatine Kinase CK-MB (CK-2) C-Reactive Protein Total Protein Albumin Troponin T HDL Cholesterol Arterial Blood Glucose Urine WBC (Auto) Urine Creatinine Urine Total Protein Phenytoin Coronavirus (PCR) Crossmatch 06/27/20 06/27/20 06/28/20 18:43 23:46 04:05 WBC RBC Hgb 7.7 L Hct 22.1 L MCHC RDW Lymph % (Auto) [place] % (Auto) Eos % (Auto) Lymph # [place] # Lymph # (Auto) [place] # (Auto) Eos # (Auto) Seg Neutrophils % Seg Neuts % (Manual) Lymphocytes % (Manual) Seg Neutrophils # Seg Neutrophils # Man Lymphocytes # (Manual) Monocytes % (Manual) Eosinophils % (Manual) Monocytes # (Manual) Eosinophils # (Manual) D-Dimer Heparin Anti-Xa Level ABG pH POC ABG pCO2 POC ABG pO2 ABG pO2 102.7 H ABG HCO3 28.7 H ABG O2 Saturation ABG Base Excess 3.7 H ABG Hemoglobin ABG Oxyhemoglobin VBG pH ABG Sodium ABG Potassium ABG Glucose Oxyhemoglobin Sodium Potassium Chloride Carbon Dioxide BUN Creatinine Glucose POC Glucose 142 H Lactic Acid Calcium Ferritin AST Alkaline Phosphatase Magnesium Lactate Dehydrogenase Total Creatine Kinase CK-MB (CK-2) C-Reactive Protein Total Protein Albumin Troponin T HDL Cholesterol Arterial Blood Glucose Urine WBC (Auto) Urine Creatinine Urine Total Protein Phenytoin Coronavirus (PCR) Crossmatch 06/28/20 06/28/20 06/28/20 09:47 09:47 12:02 WBC RBC 2.53 L Hgb 7.4 L Hct 22.2 L MCHC RDW 16.8 H Lymph % (Auto) [place] % (Auto) 13.5 H Eos % (Auto) Lymph # 1.1 L [place] # 1.0 H Lymph # (Auto) [place] # (Auto) Eos # (Auto) Seg Neutrophils % Seg Neuts % (Manual) Lymphocytes % (Manual) Seg Neutrophils # Seg Neutrophils # Man Lymphocytes # (Manual) Monocytes % (Manual) Eosinophils % (Manual) Monocytes # (Manual) Eosinophils # (Manual) D-Dimer Heparin Anti-Xa Level ABG pH POC ABG pCO2 POC ABG pO2 ABG pO2 ABG HCO3 ABG O2 Saturation ABG Base Excess ABG Hemoglobin ABG Oxyhemoglobin VBG pH ABG Sodium ABG Potassium ABG Glucose Oxyhemoglobin Sodium Potassium Chloride Carbon Dioxide BUN 80 H Creatinine 1.5 H Glucose 139 H POC Glucose 169 H Lactic Acid Calcium 7.9 L Ferritin AST Alkaline Phosphatase Magnesium Lactate Dehydrogenase Total Creatine Kinase CK-MB (CK-2) C-Reactive Protein Total Protein 5.0 L Albumin 2.1 L Troponin T HDL Cholesterol Arterial Blood Glucose Urine WBC (Auto) Urine Creatinine Urine Total Protein Phenytoin Coronavirus (PCR) Crossmatch 06/28/20 06/28/20 06/28/20 12:30 12:30 17:24 WBC RBC 2.38 L Hgb 7.3 L Hct 20.9 L MCHC 35 H RDW 16.7 H Lymph % (Auto) [place] % (Auto) Eos % (Auto) Lymph # [place] # Lymph # (Auto) [place] # (Auto) Eos # (Auto) Seg Neutrophils % Seg Neuts % (Manual) Lymphocytes % (Manual) Seg Neutrophils # Seg Neutrophils # Man Lymphocytes # (Manual) Monocytes % (Manual) Eosinophils % (Manual) Monocytes # (Manual) Eosinophils # (Manual) D-Dimer Heparin Anti-Xa Level ABG pH POC ABG pCO2 POC ABG pO2 ABG pO2 ABG HCO3 ABG O2 Saturation ABG Base Excess ABG Hemoglobin ABG Oxyhemoglobin VBG pH ABG Sodium ABG Potassium ABG Glucose Oxyhemoglobin Sodium Potassium Chloride Carbon Dioxide BUN 74 H Creatinine 1.5 H Glucose 143 H POC Glucose 173 H Lactic Acid Calcium 7.5 L Ferritin AST Alkaline Phosphatase Magnesium Lactate Dehydrogenase Total Creatine Kinase CK-MB (CK-2) C-Reactive Protein Total Protein Albumin Troponin T HDL Cholesterol Arterial Blood Glucose Urine WBC (Auto) Urine Creatinine Urine Total Protein Phenytoin Coronavirus (PCR) Crossmatch 06/29/20 06/29/20 06/29/20 00:02 03:54 04:38 WBC RBC 2.55 L Hgb 7.3 L Hct 22.4 L MCHC RDW 16.4 H Lymph % (Auto) 13.3 L [place] % (Auto) 12.5 H Eos % (Auto) Lymph # 1.1 L [place] # 1.0 H Lymph # (Auto) [place] # (Auto) Eos # (Auto) Seg Neutrophils % Seg Neuts % (Manual) Lymphocytes % (Manual) Seg Neutrophils # Seg Neutrophils # Man Lymphocytes # (Manual) Monocytes % (Manual) Eosinophils % (Manual) Monocytes # (Manual) Eosinophils # (Manual) D-Dimer Heparin Anti-Xa Level ABG pH POC ABG pCO2 POC ABG pO2 ABG pO2 ABG HCO3 26.9 H ABG O2 Saturation ABG Base Excess ABG Hemoglobin 6.9 L ABG Oxyhemoglobin VBG pH ABG Sodium ABG Potassium ABG Glucose Oxyhemoglobin Sodium Potassium Chloride Carbon Dioxide BUN Creatinine Glucose POC Glucose 142 H Lactic Acid Calcium Ferritin AST Alkaline Phosphatase Magnesium Lactate Dehydrogenase Total Creatine Kinase CK-MB (CK-2) C-Reactive Protein Total Protein Albumin Troponin T HDL Cholesterol Arterial Blood Glucose Urine WBC (Auto) Urine Creatinine Urine Total Protein Phenytoin Coronavirus (PCR) Crossmatch 06/29/20 06/29/20 06/29/20 04:38 05:38 12:25 WBC RBC Hgb Hct MCHC RDW Lymph % (Auto) [place] % (Auto) Eos % (Auto) Lymph # [place] # Lymph # (Auto) [place] # (Auto) Eos # (Auto) Seg Neutrophils % Seg Neuts % (Manual) Lymphocytes % (Manual) Seg Neutrophils # Seg Neutrophils # Man Lymphocytes # (Manual) Monocytes % (Manual) Eosinophils % (Manual) Monocytes # (Manual) Eosinophils # (Manual) D-Dimer Heparin Anti-Xa Level ABG pH POC ABG pCO2 POC ABG pO2 ABG pO2 ABG HCO3 ABG O2 Saturation ABG Base Excess ABG Hemoglobin ABG Oxyhemoglobin VBG pH ABG Sodium ABG Potassium ABG Glucose Oxyhemoglobin Sodium Potassium Chloride 107.8 H Carbon Dioxide BUN 72 H Creatinine 1.4 H Glucose 127 H POC Glucose 122 H 138 H Lactic Acid Calcium 7.4 L Ferritin AST Alkaline Phosphatase Magnesium Lactate Dehydrogenase Total Creatine Kinase CK-MB (CK-2) C-Reactive Protein Total Protein Albumin Troponin T HDL Cholesterol Arterial Blood Glucose Urine WBC (Auto) Urine Creatinine Urine Total Protein Phenytoin Coronavirus (PCR) Crossmatch 06/29/20 06/29/20 06/29/20 14:45 14:45 14:45 WBC RBC Hgb Hct MCHC RDW Lymph % (Auto) [place] % (Auto) Eos % (Auto) Lymph # [place] # Lymph # (Auto) [place] # (Auto) Eos # (Auto) Seg Neutrophils % Seg Neuts % (Manual) Lymphocytes % (Manual) Seg Neutrophils # Seg Neutrophils # Man Lymphocytes # (Manual) Monocytes % (Manual) Eosinophils % (Manual) Monocytes # (Manual) Eosinophils # (Manual) D-Dimer 2310.15 H Heparin Anti-Xa Level ABG pH POC ABG pCO2 POC ABG pO2 ABG pO2 ABG HCO3 ABG O2 Saturation ABG Base Excess ABG Hemoglobin ABG Oxyhemoglobin VBG pH ABG Sodium ABG Potassium ABG Glucose Oxyhemoglobin Sodium Potassium Chloride Carbon Dioxide BUN Creatinine Glucose POC Glucose Lactic Acid Calcium Ferritin 223.6 H AST Alkaline Phosphatase Magnesium Lactate Dehydrogenase 367 H Total Creatine Kinase CK-MB (CK-2) C-Reactive Protein 3.60 H Total Protein Albumin Troponin T HDL Cholesterol Arterial Blood Glucose Urine WBC (Auto) Urine Creatinine Urine Total Protein Phenytoin Coronavirus (PCR) Crossmatch 06/29/20 06/29/20 06/29/20 18:27 23:35 Unknown WBC RBC Hgb Hct MCHC RDW Lymph % (Auto) [place] % (Auto) Eos % (Auto) Lymph # [place] # Lymph # (Auto) [place] # (Auto) Eos # (Auto) Seg Neutrophils % Seg Neuts % (Manual) Lymphocytes % (Manual) Seg Neutrophils # Seg Neutrophils # Man Lymphocytes # (Manual) Monocytes % (Manual) Eosinophils % (Manual) Monocytes # (Manual) Eosinophils # (Manual) D-Dimer Heparin Anti-Xa Level ABG pH POC ABG pCO2 POC ABG pO2 ABG pO2 ABG HCO3 ABG O2 Saturation ABG Base Excess ABG Hemoglobin ABG Oxyhemoglobin VBG pH ABG Sodium ABG Potassium ABG Glucose Oxyhemoglobin Sodium Potassium Chloride Carbon Dioxide BUN Creatinine Glucose POC Glucose 112 H 140 H Lactic Acid Calcium Ferritin AST Alkaline Phosphatase Magnesium Lactate Dehydrogenase Total Creatine Kinase CK-MB (CK-2) C-Reactive Protein Total Protein Albumin Troponin T HDL Cholesterol Arterial Blood Glucose Urine WBC (Auto) Urine Creatinine Urine Total Protein Phenytoin Coronavirus (PCR) Positive A Crossmatch 06/30/20 06/30/20 06/30/20 04:10 04:10 06:09 WBC RBC 2.44 L Hgb 7.1 L Hct 21.5 L MCHC RDW 16.6 H Lymph % (Auto) 11.0 L [place] % (Auto) 10.8 H Eos % (Auto) Lymph # 0.9 L [place] # 0.9 H Lymph # (Auto) [place] # (Auto) Eos # (Auto) Seg Neutrophils % 73.7 H Seg Neuts % (Manual) Lymphocytes % (Manual) Seg Neutrophils # Seg Neutrophils # Man Lymphocytes # (Manual) Monocytes % (Manual) Eosinophils % (Manual) Monocytes # (Manual) Eosinophils # (Manual) D-Dimer Heparin Anti-Xa Level ABG pH POC ABG pCO2 POC ABG pO2 ABG pO2 ABG HCO3 ABG O2 Saturation ABG Base Excess ABG Hemoglobin ABG Oxyhemoglobin VBG pH ABG Sodium ABG Potassium ABG Glucose Oxyhemoglobin Sodium Potassium Chloride 109.1 H Carbon Dioxide BUN 74 H Creatinine 1.3 H Glucose 191 H POC Glucose 187 H Lactic Acid Calcium 7.8 L Ferritin AST Alkaline Phosphatase Magnesium Lactate Dehydrogenase Total Creatine Kinase CK-MB (CK-2) C-Reactive Protein Total Protein Albumin Troponin T HDL Cholesterol Arterial Blood Glucose Urine WBC (Auto) Urine Creatinine Urine Total Protein Phenytoin Coronavirus (PCR) Crossmatch 06/30/20 06/30/20 06/30/20 12:04 17:43 23:41 WBC RBC Hgb Hct MCHC RDW Lymph % (Auto) [place] % (Auto) Eos % (Auto) Lymph # [place] # Lymph # (Auto) [place] # (Auto) Eos # (Auto) Seg Neutrophils % Seg Neuts % (Manual) Lymphocytes % (Manual) Seg Neutrophils # Seg Neutrophils # Man Lymphocytes # (Manual) Monocytes % (Manual) Eosinophils % (Manual) Monocytes # (Manual) Eosinophils # (Manual) D-Dimer Heparin Anti-Xa Level ABG pH POC ABG pCO2 POC ABG pO2 ABG pO2 ABG HCO3 ABG O2 Saturation ABG Base Excess ABG Hemoglobin ABG Oxyhemoglobin VBG pH ABG Sodium ABG Potassium ABG Glucose Oxyhemoglobin Sodium Potassium Chloride Carbon Dioxide BUN Creatinine Glucose POC Glucose 112 H 177 H 143 H Lactic Acid Calcium Ferritin AST Alkaline Phosphatase Magnesium Lactate Dehydrogenase Total Creatine Kinase CK-MB (CK-2) C-Reactive Protein Total Protein Albumin Troponin T HDL Cholesterol Arterial Blood Glucose Urine WBC (Auto) Urine Creatinine Urine Total Protein Phenytoin Coronavirus (PCR) Crossmatch 07/01/20 07/01/20 07/01/20 05:02 05:52 06:01 WBC 12.6 H RBC 2.95 L Hgb 8.2 L Hct 26.0 L MCHC RDW 16.9 H Lymph % (Auto) [place] % (Auto) Eos % (Auto) Lymph # [place] # Lymph # (Auto) [place] # (Auto) Eos # (Auto) Seg Neutrophils % Seg Neuts % (Manual) Lymphocytes % (Manual) Seg Neutrophils # Seg Neutrophils # Man 8.6 H Lymphocytes # (Manual) Monocytes % (Manual) Eosinophils % (Manual) 5.0 H Monocytes # (Manual) Eosinophils # (Manual) 0.6 H D-Dimer Heparin Anti-Xa Level ABG pH POC ABG pCO2 POC ABG pO2 ABG pO2 ABG HCO3 ABG O2 Saturation ABG Base Excess ABG Hemoglobin 8.2 L ABG Oxyhemoglobin VBG pH ABG Sodium ABG Potassium ABG Glucose Oxyhemoglobin Sodium Potassium Chloride Carbon Dioxide BUN Creatinine Glucose POC Glucose 129 H Lactic Acid Calcium Ferritin AST Alkaline Phosphatase Magnesium Lactate Dehydrogenase Total Creatine Kinase CK-MB (CK-2) C-Reactive Protein Total Protein Albumin Troponin T HDL Cholesterol Arterial Blood Glucose Urine WBC (Auto) Urine Creatinine Urine Total Protein Phenytoin Coronavirus (PCR) Crossmatch 07/01/20 07/01/20 07/01/20 06:01 06:01 06:08 WBC RBC Hgb Hct MCHC RDW Lymph % (Auto) [place] % (Auto) Eos % (Auto) Lymph # [place] # Lymph # (Auto) [place] # (Auto) Eos # (Auto) Seg Neutrophils % Seg Neuts % (Manual) Lymphocytes % (Manual) Seg Neutrophils # Seg Neutrophils # Man Lymphocytes # (Manual) Monocytes % (Manual) Eosinophils % (Manual) Monocytes # (Manual) Eosinophils # (Manual) D-Dimer Heparin Anti-Xa Level ABG pH POC ABG pCO2 POC ABG pO2 ABG pO2 ABG HCO3 ABG O2 Saturation ABG Base Excess ABG Hemoglobin ABG Oxyhemoglobin VBG pH ABG Sodium ABG Potassium ABG Glucose Oxyhemoglobin Sodium 147 H Potassium Chloride 108.0 H Carbon Dioxide BUN 71 H Creatinine 1.3 H Glucose 193 H POC Glucose 192 H Lactic Acid Calcium 8.1 L Ferritin AST Alkaline Phosphatase Magnesium Lactate Dehydrogenase Total Creatine Kinase 300 H CK-MB (CK-2) C-Reactive Protein Total Protein Albumin Troponin T 0.067 H HDL Cholesterol 61 H Arterial Blood Glucose Urine WBC (Auto) Urine Creatinine Urine Total Protein Phenytoin Coronavirus (PCR) Crossmatch 07/01/20 07/01/20 07/02/20 12:23 17:40 00:18 WBC RBC Hgb Hct MCHC RDW Lymph % (Auto) [place] % (Auto) Eos % (Auto) Lymph # [place] # Lymph # (Auto) [place] # (Auto) Eos # (Auto) Seg Neutrophils % Seg Neuts % (Manual) Lymphocytes % (Manual) Seg Neutrophils # Seg Neutrophils # Man Lymphocytes # (Manual) Monocytes % (Manual) Eosinophils % (Manual) Monocytes # (Manual) Eosinophils # (Manual) D-Dimer Heparin Anti-Xa Level ABG pH POC ABG pCO2 POC ABG pO2 ABG pO2 ABG HCO3 ABG O2 Saturation ABG Base Excess ABG Hemoglobin ABG Oxyhemoglobin VBG pH ABG Sodium ABG Potassium ABG Glucose Oxyhemoglobin Sodium Potassium Chloride Carbon Dioxide BUN Creatinine Glucose POC Glucose 111 H 135 H 145 H Lactic Acid Calcium Ferritin AST Alkaline Phosphatase Magnesium Lactate Dehydrogenase Total Creatine Kinase CK-MB (CK-2) C-Reactive Protein Total Protein Albumin Troponin T HDL Cholesterol Arterial Blood Glucose Urine WBC (Auto) Urine Creatinine Urine Total Protein Phenytoin Coronavirus (PCR) Crossmatch 07/02/20 07/02/20 07/02/20 04:11 04:23 05:54 WBC RBC Hgb Hct MCHC RDW Lymph % (Auto) [place] % (Auto) Eos % (Auto) Lymph # [place] # Lymph # (Auto) [place] # (Auto) Eos # (Auto) Seg Neutrophils % Seg Neuts % (Manual) Lymphocytes % (Manual) Seg Neutrophils # Seg Neutrophils # Man Lymphocytes # (Manual) Monocytes % (Manual) Eosinophils % (Manual) Monocytes # (Manual) Eosinophils # (Manual) D-Dimer Heparin Anti-Xa Level ABG pH POC ABG pCO2 POC ABG pO2 ABG pO2 ABG HCO3 ABG O2 Saturation ABG Base Excess ABG Hemoglobin 5.4 L ABG Oxyhemoglobin VBG pH ABG Sodium ABG Potassium ABG Glucose Oxyhemoglobin Sodium Potassium Chloride 108.6 H Carbon Dioxide BUN 72 H Creatinine Glucose 112 H POC Glucose 137 H Lactic Acid Calcium 7.8 L Ferritin AST Alkaline Phosphatase Magnesium Lactate Dehydrogenase Total Creatine Kinase CK-MB (CK-2) C-Reactive Protein Total Protein Albumin Troponin T HDL Cholesterol Arterial Blood Glucose Urine WBC (Auto) Urine Creatinine Urine Total Protein Phenytoin Coronavirus (PCR) Crossmatch 07/02/20 07/02/20 07/02/20 11:38 18:04 23:59 WBC RBC Hgb Hct MCHC RDW Lymph % (Auto) [place] % (Auto) Eos % (Auto) Lymph # [place] # Lymph # (Auto) [place] # (Auto) Eos # (Auto) Seg Neutrophils % Seg Neuts % (Manual) Lymphocytes % (Manual) Seg Neutrophils # Seg Neutrophils # Man Lymphocytes # (Manual) Monocytes % (Manual) Eosinophils % (Manual) Monocytes # (Manual) Eosinophils # (Manual) D-Dimer Heparin Anti-Xa Level ABG pH POC ABG pCO2 POC ABG pO2 ABG pO2 ABG HCO3 ABG O2 Saturation ABG Base Excess ABG Hemoglobin ABG Oxyhemoglobin VBG pH ABG Sodium ABG Potassium ABG Glucose Oxyhemoglobin Sodium Potassium Chloride Carbon Dioxide BUN Creatinine Glucose POC Glucose 128 H 135 H 156 H Lactic Acid Calcium Ferritin AST Alkaline Phosphatase Magnesium Lactate Dehydrogenase Total Creatine Kinase CK-MB (CK-2) C-Reactive Protein Total Protein Albumin Troponin T HDL Cholesterol Arterial Blood Glucose Urine WBC (Auto) Urine Creatinine Urine Total Protein Phenytoin Coronavirus (PCR) Crossmatch 07/03/20 07/03/20 07/03/20 03:49 06:00 11:31 WBC RBC Hgb Hct MCHC RDW Lymph % (Auto) [place] % (Auto) Eos % (Auto) Lymph # [place] # Lymph # (Auto) [place] # (Auto) Eos # (Auto) Seg Neutrophils % Seg Neuts % (Manual) Lymphocytes % (Manual) Seg Neutrophils # Seg Neutrophils # Man Lymphocytes # (Manual) Monocytes % (Manual) Eosinophils % (Manual) Monocytes # (Manual) Eosinophils # (Manual) D-Dimer Heparin Anti-Xa Level ABG pH POC ABG pCO2 POC ABG pO2 ABG pO2 121.0 H ABG HCO3 ABG O2 Saturation ABG Base Excess ABG Hemoglobin 8.5 L ABG Oxyhemoglobin VBG pH ABG Sodium ABG Potassium ABG Glucose Oxyhemoglobin Sodium Potassium Chloride Carbon Dioxide BUN Creatinine Glucose POC Glucose 135 H 141 H Lactic Acid Calcium Ferritin AST Alkaline Phosphatase Magnesium Lactate Dehydrogenase Total Creatine Kinase CK-MB (CK-2) C-Reactive Protein Total Protein Albumin Troponin T HDL Cholesterol Arterial Blood Glucose Urine WBC (Auto) Urine Creatinine Urine Total Protein Phenytoin Coronavirus (PCR) Crossmatch 07/03/20 07/03/20 07/03/20 16:00 16:07 17:40 WBC RBC Hgb Hct MCHC RDW Lymph % (Auto) [place] % (Auto) Eos % (Auto) Lymph # [place] # Lymph # (Auto) [place] # (Auto) Eos # (Auto) Seg Neutrophils % Seg Neuts % (Manual) Lymphocytes % (Manual) Seg Neutrophils # Seg Neutrophils # Man Lymphocytes # (Manual) Monocytes % (Manual) Eosinophils % (Manual) Monocytes # (Manual) Eosinophils # (Manual) D-Dimer Heparin Anti-Xa Level ABG pH 7.271 L POC ABG pCO2 POC ABG pO2 ABG pO2 126.9 H ABG HCO3 ABG O2 Saturation ABG Base Excess ABG Hemoglobin 8.2 L 8.1 L ABG Oxyhemoglobin VBG pH ABG Sodium 130.3 L ABG Potassium 4.9 H ABG Glucose 163 H Oxyhemoglobin Sodium Potassium Chloride Carbon Dioxide BUN Creatinine Glucose POC Glucose 120 H Lactic Acid Calcium Ferritin AST Alkaline Phosphatase Magnesium Lactate Dehydrogenase Total Creatine Kinase CK-MB (CK-2) C-Reactive Protein Total Protein Albumin Troponin T HDL Cholesterol Arterial Blood Glucose 163 H Urine WBC (Auto) Urine Creatinine Urine Total Protein Phenytoin Coronavirus (PCR) Crossmatch 07/04/20 07/04/20 07/04/20 05:49 11:54 18:00 WBC RBC Hgb Hct MCHC RDW Lymph % (Auto) [place] % (Auto) Eos % (Auto) Lymph # [place] # Lymph # (Auto) [place] # (Auto) Eos # (Auto) Seg Neutrophils % Seg Neuts % (Manual) Lymphocytes % (Manual) Seg Neutrophils # Seg Neutrophils # Man Lymphocytes # (Manual) Monocytes % (Manual) Eosinophils % (Manual) Monocytes # (Manual) Eosinophils # (Manual) D-Dimer Heparin Anti-Xa Level ABG pH POC ABG pCO2 POC ABG pO2 ABG pO2 ABG HCO3 ABG O2 Saturation ABG Base Excess ABG Hemoglobin ABG Oxyhemoglobin VBG pH ABG Sodium ABG Potassium ABG Glucose Oxyhemoglobin Sodium Potassium Chloride Carbon Dioxide BUN Creatinine Glucose POC Glucose 128 H 168 H 133 H Lactic Acid Calcium Ferritin AST Alkaline Phosphatase Magnesium Lactate Dehydrogenase Total Creatine Kinase CK-MB (CK-2) C-Reactive Protein Total Protein Albumin Troponin T HDL Cholesterol Arterial Blood Glucose Urine WBC (Auto) Urine Creatinine Urine Total Protein Phenytoin Coronavirus (PCR) Crossmatch 07/05/20 07/05/20 07/05/20 00:07 01:12 02:30 WBC RBC 2.35 L Hgb 6.9 L Hct 21.1 L MCHC RDW 16.8 H Lymph % (Auto) [place] % (Auto) Eos % (Auto) Lymph # [place] # Lymph # (Auto) [place] # (Auto) Eos # (Auto) Seg Neutrophils % Seg Neuts % (Manual) 74.0 H Lymphocytes % (Manual) 12.0 L Seg Neutrophils # Seg Neutrophils # Man 8.0 H Lymphocytes # (Manual) Monocytes % (Manual) 9.0 H Eosinophils % (Manual) Monocytes # (Manual) 1.0 H Eosinophils # (Manual) D-Dimer Heparin Anti-Xa Level ABG pH POC ABG pCO2 POC ABG pO2 ABG pO2 ABG HCO3 ABG O2 Saturation ABG Base Excess ABG Hemoglobin ABG Oxyhemoglobin VBG pH ABG Sodium ABG Potassium ABG Glucose Oxyhemoglobin Sodium Potassium Chloride Carbon Dioxide BUN Creatinine Glucose POC Glucose 121 H Lactic Acid Calcium Ferritin AST Alkaline Phosphatase Magnesium Lactate Dehydrogenase Total Creatine Kinase CK-MB (CK-2) C-Reactive Protein Total Protein Albumin Troponin T HDL Cholesterol Arterial Blood Glucose Urine WBC (Auto) Urine Creatinine Urine Total Protein Phenytoin Coronavirus (PCR) Crossmatch See Detail 07/05/20 07/05/20 07/05/20 12:09 13:05 18:04 WBC RBC Hgb Hct MCHC RDW Lymph % (Auto) [place] % (Auto) Eos % (Auto) Lymph # [place] # Lymph # (Auto) [place] # (Auto) Eos # (Auto) Seg Neutrophils % Seg Neuts % (Manual) Lymphocytes % (Manual) Seg Neutrophils # Seg Neutrophils # Man Lymphocytes # (Manual) Monocytes % (Manual) Eosinophils % (Manual) Monocytes # (Manual) Eosinophils # (Manual) D-Dimer Heparin Anti-Xa Level ABG pH 7.32 L POC ABG pCO2 POC ABG pO2 ABG pO2 78.3 L ABG HCO3 ABG O2 Saturation ABG Base Excess -2.6 L ABG Hemoglobin 7.3 L ABG Oxyhemoglobin VBG pH ABG Sodium ABG Potassium ABG Glucose Oxyhemoglobin Sodium Potassium Chloride Carbon Dioxide BUN Creatinine Glucose POC Glucose 132 H 160 H Lactic Acid Calcium Ferritin AST Alkaline Phosphatase Magnesium Lactate Dehydrogenase Total Creatine Kinase CK-MB (CK-2) C-Reactive Protein Total Protein Albumin Troponin T HDL Cholesterol Arterial Blood Glucose Urine WBC (Auto) Urine Creatinine Urine Total Protein Phenytoin Coronavirus (PCR) Crossmatch 07/05/20 07/05/20 07/05/20 23:13 23:13 23:43 WBC RBC 2.57 L Hgb 7.7 L Hct 23.0 L MCHC RDW 16.9 H Lymph % (Auto) [place] % (Auto) Eos % (Auto) Lymph # [place] # Lymph # (Auto) [place] # (Auto) Eos # (Auto) Seg Neutrophils % Seg Neuts % (Manual) Lymphocytes % (Manual) Seg Neutrophils # Seg Neutrophils # Man Lymphocytes # (Manual) Monocytes % (Manual) Eosinophils % (Manual) Monocytes # (Manual) Eosinophils # (Manual) D-Dimer Heparin Anti-Xa Level ABG pH POC ABG pCO2 POC ABG pO2 ABG pO2 ABG HCO3 ABG O2 Saturation ABG Base Excess ABG Hemoglobin ABG Oxyhemoglobin VBG pH ABG Sodium ABG Potassium ABG Glucose Oxyhemoglobin Sodium Potassium Chloride Carbon Dioxide 20 L BUN 80 H Creatinine 2.4 H D Glucose 124 H POC Glucose 121 H Lactic Acid Calcium 7.6 L Ferritin AST Alkaline Phosphatase Magnesium Lactate Dehydrogenase Total Creatine Kinase CK-MB (CK-2) C-Reactive Protein Total Protein Albumin Troponin T HDL Cholesterol Arterial Blood Glucose Urine WBC (Auto) Urine Creatinine Urine Total Protein Phenytoin Coronavirus (PCR) Crossmatch 07/06/20 07/06/20 07/06/20 13:20 14:48 17:28 WBC RBC Hgb Hct MCHC RDW Lymph % (Auto) [place] % (Auto) Eos % (Auto) Lymph # [place] # Lymph # (Auto) [place] # (Auto) Eos # (Auto) Seg Neutrophils % Seg Neuts % (Manual) Lymphocytes % (Manual) Seg Neutrophils # Seg Neutrophils # Man Lymphocytes # (Manual) Monocytes % (Manual) Eosinophils % (Manual) Monocytes # (Manual) Eosinophils # (Manual) D-Dimer Heparin Anti-Xa Level ABG pH POC ABG pCO2 POC ABG pO2 ABG pO2 ABG HCO3 ABG O2 Saturation ABG Base Excess ABG Hemoglobin ABG Oxyhemoglobin VBG pH ABG Sodium ABG Potassium ABG Glucose Oxyhemoglobin Sodium 136 L Potassium 5.5 H Chloride Carbon Dioxide 19 L BUN 82 H Creatinine 2.5 H Glucose 113 H POC Glucose 133 H Lactic Acid Calcium 7.7 L Ferritin AST Alkaline Phosphatase Magnesium Lactate Dehydrogenase Total Creatine Kinase CK-MB (CK-2) C-Reactive Protein Total Protein Albumin Troponin T HDL Cholesterol Arterial Blood Glucose Urine WBC (Auto) Urine Creatinine 33.3 H Urine Total Protein Phenytoin Coronavirus (PCR) Crossmatch 07/07/20 07/07/20 07/07/20 00:12 04:15 04:15 WBC RBC 2.28 L Hgb 6.8 L Hct 20.7 L MCHC RDW 16.8 H Lymph % (Auto) [place] % (Auto) Eos % (Auto) Lymph # [place] # Lymph # (Auto) [place] # (Auto) Eos # (Auto) Seg Neutrophils % Seg Neuts % (Manual) Lymphocytes % (Manual) 13.0 L Seg Neutrophils # Seg Neutrophils # Man Lymphocytes # (Manual) 1.0 L Monocytes % (Manual) 11.0 H Eosinophils % (Manual) Monocytes # (Manual) 0.9 H Eosinophils # (Manual) D-Dimer Heparin Anti-Xa Level ABG pH POC ABG pCO2 POC ABG pO2 ABG pO2 ABG HCO3 ABG O2 Saturation ABG Base Excess ABG Hemoglobin ABG Oxyhemoglobin VBG pH ABG Sodium ABG Potassium ABG Glucose Oxyhemoglobin Sodium Potassium Chloride Carbon Dioxide BUN Creatinine Glucose POC Glucose 154 H Lactic Acid Calcium Ferritin AST Alkaline Phosphatase Magnesium 2.50 H Lactate Dehydrogenase Total Creatine Kinase CK-MB (CK-2) C-Reactive Protein Total Protein Albumin Troponin T HDL Cholesterol Arterial Blood Glucose Urine WBC (Auto) Urine Creatinine Urine Total Protein Phenytoin Coronavirus (PCR) Crossmatch 07/07/20 07/07/20 07/07/20 05:31 12:31 13:22 WBC RBC Hgb Hct MCHC RDW Lymph % (Auto) [place] % (Auto) Eos % (Auto) Lymph # [place] # Lymph # (Auto) [place] # (Auto) Eos # (Auto) Seg Neutrophils % Seg Neuts % (Manual) Lymphocytes % (Manual) Seg Neutrophils # Seg Neutrophils # Man Lymphocytes # (Manual) Monocytes % (Manual) Eosinophils % (Manual) Monocytes # (Manual) Eosinophils # (Manual) D-Dimer Heparin Anti-Xa Level ABG pH POC ABG pCO2 POC ABG pO2 ABG pO2 ABG HCO3 ABG O2 Saturation ABG Base Excess ABG Hemoglobin ABG Oxyhemoglobin VBG pH ABG Sodium ABG Potassium ABG Glucose Oxyhemoglobin Sodium Potassium 5.6 H Chloride Carbon Dioxide BUN 86 H Creatinine 2.9 H Glucose 127 H POC Glucose 135 H 131 H Lactic Acid Calcium 8.1 L Ferritin AST Alkaline Phosphatase Magnesium Lactate Dehydrogenase Total Creatine Kinase CK-MB (CK-2) C-Reactive Protein Total Protein Albumin Troponin T HDL Cholesterol Arterial Blood Glucose Urine WBC (Auto) Urine Creatinine Urine Total Protein Phenytoin Coronavirus (PCR) Crossmatch 07/07/20 07/07/20 07/08/20 17:55 23:33 04:14 WBC RBC 3.28 L Hgb 9.7 L Hct 28.9 L D MCHC RDW 16.4 H Lymph % (Auto) 10.3 L [place] % (Auto) 10.0 H Eos % (Auto) Lymph # [place] # Lymph # (Auto) 1.1 L [place] # (Auto) 1.1 H Eos # (Auto) Seg Neutrophils % 77.2 H Seg Neuts % (Manual) Lymphocytes % (Manual) Seg Neutrophils # 8.2 H Seg Neutrophils # Man Lymphocytes # (Manual) Monocytes % (Manual) Eosinophils % (Manual) Monocytes # (Manual) Eosinophils # (Manual) D-Dimer Heparin Anti-Xa Level ABG pH POC ABG pCO2 POC ABG pO2 ABG pO2 ABG HCO3 ABG O2 Saturation ABG Base Excess ABG Hemoglobin ABG Oxyhemoglobin VBG pH ABG Sodium ABG Potassium ABG Glucose Oxyhemoglobin Sodium Potassium Chloride Carbon Dioxide BUN Creatinine Glucose POC Glucose 136 H 159 H Lactic Acid Calcium Ferritin AST Alkaline Phosphatase Magnesium Lactate Dehydrogenase Total Creatine Kinase CK-MB (CK-2) C-Reactive Protein Total Protein Albumin Troponin T HDL Cholesterol Arterial Blood Glucose Urine WBC (Auto) Urine Creatinine Urine Total Protein Phenytoin Coronavirus (PCR) Crossmatch 07/08/20 07/08/20 07/08/20 04:14 12:10 18:10 WBC RBC Hgb Hct MCHC RDW Lymph % (Auto) [place] % (Auto) Eos % (Auto) Lymph # [place] # Lymph # (Auto) [place] # (Auto) Eos # (Auto) Seg Neutrophils % Seg Neuts % (Manual) Lymphocytes % (Manual) Seg Neutrophils # Seg Neutrophils # Man Lymphocytes # (Manual) Monocytes % (Manual) Eosinophils % (Manual) Monocytes # (Manual) Eosinophils # (Manual) D-Dimer Heparin Anti-Xa Level ABG pH POC ABG pCO2 POC ABG pO2 ABG pO2 ABG HCO3 ABG O2 Saturation ABG Base Excess ABG Hemoglobin ABG Oxyhemoglobin VBG pH ABG Sodium ABG Potassium ABG Glucose Oxyhemoglobin Sodium 136 L Potassium Chloride Carbon Dioxide BUN 84 H Creatinine 2.8 H Glucose 109 H POC Glucose 108 H 125 H Lactic Acid Calcium 8.1 L Ferritin AST Alkaline Phosphatase Magnesium 2.50 H Lactate Dehydrogenase Total Creatine Kinase CK-MB (CK-2) C-Reactive Protein Total Protein Albumin Troponin T HDL Cholesterol Arterial Blood Glucose Urine WBC (Auto) Urine Creatinine Urine Total Protein Phenytoin Coronavirus (PCR) Crossmatch 07/08/20 07/09/20 07/09/20 23:50 05:39 11:57 WBC RBC Hgb Hct MCHC RDW Lymph % (Auto) [place] % (Auto) Eos % (Auto) Lymph # [place] # Lymph # (Auto) [place] # (Auto) Eos # (Auto) Seg Neutrophils % Seg Neuts % (Manual) Lymphocytes % (Manual) Seg Neutrophils # Seg Neutrophils # Man Lymphocytes # (Manual) Monocytes % (Manual) Eosinophils % (Manual) Monocytes # (Manual) Eosinophils # (Manual) D-Dimer Heparin Anti-Xa Level ABG pH POC ABG pCO2 POC ABG pO2 ABG pO2 ABG HCO3 ABG O2 Saturation ABG Base Excess ABG Hemoglobin ABG Oxyhemoglobin VBG pH ABG Sodium ABG Potassium ABG Glucose Oxyhemoglobin Sodium Potassium Chloride Carbon Dioxide BUN Creatinine Glucose POC Glucose 141 H 121 H 123 H Lactic Acid Calcium Ferritin AST Alkaline Phosphatase Magnesium Lactate Dehydrogenase Total Creatine Kinase CK-MB (CK-2) C-Reactive Protein Total Protein Albumin Troponin T HDL Cholesterol Arterial Blood Glucose Urine WBC (Auto) Urine Creatinine Urine Total Protein Phenytoin Coronavirus (PCR) Crossmatch 07/09/20 07/10/20 07/10/20 17:56 00:29 05:50 WBC RBC Hgb Hct MCHC RDW Lymph % (Auto) [place] % (Auto) Eos % (Auto) Lymph # [place] # Lymph # (Auto) [place] # (Auto) Eos # (Auto) Seg Neutrophils % Seg Neuts % (Manual) Lymphocytes % (Manual) Seg Neutrophils # Seg Neutrophils # Man Lymphocytes # (Manual) Monocytes % (Manual) Eosinophils % (Manual) Monocytes # (Manual) Eosinophils # (Manual) D-Dimer Heparin Anti-Xa Level ABG pH POC ABG pCO2 POC ABG pO2 ABG pO2 ABG HCO3 ABG O2 Saturation ABG Base Excess ABG Hemoglobin ABG Oxyhemoglobin VBG pH ABG Sodium ABG Potassium ABG Glucose Oxyhemoglobin Sodium Potassium Chloride Carbon Dioxide BUN Creatinine Glucose POC Glucose 119 H 122 H 124 H Lactic Acid Calcium Ferritin AST Alkaline Phosphatase Magnesium Lactate Dehydrogenase Total Creatine Kinase CK-MB (CK-2) C-Reactive Protein Total Protein Albumin Troponin T HDL Cholesterol Arterial Blood Glucose Urine WBC (Auto) Urine Creatinine Urine Total Protein Phenytoin Coronavirus (PCR) Crossmatch 07/10/20 07/10/20 07/10/20 10:41 10:41 12:25 WBC RBC 3.11 L Hgb 9.2 L Hct 27.6 L MCHC RDW 16.6 H Lymph % (Auto) [place] % (Auto) Eos % (Auto) Lymph # [place] # Lymph # (Auto) [place] # (Auto) Eos # (Auto) Seg Neutrophils % Seg Neuts % (Manual) 78.0 H Lymphocytes % (Manual) 11.0 L Seg Neutrophils # Seg Neutrophils # Man Lymphocytes # (Manual) 1.0 L Monocytes % (Manual) Eosinophils % (Manual) Monocytes # (Manual) Eosinophils # (Manual) D-Dimer Heparin Anti-Xa Level ABG pH POC ABG pCO2 POC ABG pO2 ABG pO2 ABG HCO3 ABG O2 Saturation ABG Base Excess ABG Hemoglobin ABG Oxyhemoglobin VBG pH ABG Sodium ABG Potassium ABG Glucose Oxyhemoglobin Sodium Potassium Chloride Carbon Dioxide BUN 85 H Creatinine 2.5 H Glucose 133 H POC Glucose 131 H Lactic Acid Calcium Ferritin AST Alkaline Phosphatase 131 H Magnesium Lactate Dehydrogenase Total Creatine Kinase CK-MB (CK-2) C-Reactive Protein Total Protein 5.2 L Albumin 1.6 L Troponin T HDL Cholesterol Arterial Blood Glucose Urine WBC (Auto) Urine Creatinine Urine Total Protein Phenytoin Coronavirus (PCR) Crossmatch 07/10/20 07/11/20 07/11/20 18:10 00:28 05:57 WBC RBC Hgb Hct MCHC RDW Lymph % (Auto) [place] % (Auto) Eos % (Auto) Lymph # [place] # Lymph # (Auto) [place] # (Auto) Eos # (Auto) Seg Neutrophils % Seg Neuts % (Manual) Lymphocytes % (Manual) Seg Neutrophils # Seg Neutrophils # Man Lymphocytes # (Manual) Monocytes % (Manual) Eosinophils % (Manual) Monocytes # (Manual) Eosinophils # (Manual) D-Dimer Heparin Anti-Xa Level ABG pH POC ABG pCO2 POC ABG pO2 ABG pO2 ABG HCO3 ABG O2 Saturation ABG Base Excess ABG Hemoglobin ABG Oxyhemoglobin VBG pH ABG Sodium ABG Potassium ABG Glucose Oxyhemoglobin Sodium Potassium Chloride Carbon Dioxide BUN Creatinine Glucose POC Glucose 134 H 140 H 148 H Lactic Acid Calcium Ferritin AST Alkaline Phosphatase Magnesium Lactate Dehydrogenase Total Creatine Kinase CK-MB (CK-2) C-Reactive Protein Total Protein Albumin Troponin T HDL Cholesterol Arterial Blood Glucose Urine WBC (Auto) Urine Creatinine Urine Total Protein Phenytoin Coronavirus (PCR) Crossmatch 07/11/20 07/11/20 07/11/20 12:14 17:28 23:49 WBC RBC Hgb Hct MCHC RDW Lymph % (Auto) [place] % (Auto) Eos % (Auto) Lymph # [place] # Lymph # (Auto) [place] # (Auto) Eos # (Auto) Seg Neutrophils % Seg Neuts % (Manual) Lymphocytes % (Manual) Seg Neutrophils # Seg Neutrophils # Man Lymphocytes # (Manual) Monocytes % (Manual) Eosinophils % (Manual) Monocytes # (Manual) Eosinophils # (Manual) D-Dimer Heparin Anti-Xa Level ABG pH POC ABG pCO2 POC ABG pO2 ABG pO2 ABG HCO3 ABG O2 Saturation ABG Base Excess ABG Hemoglobin ABG Oxyhemoglobin VBG pH ABG Sodium ABG Potassium ABG Glucose Oxyhemoglobin Sodium Potassium Chloride Carbon Dioxide BUN Creatinine Glucose POC Glucose 147 H 175 H 114 H Lactic Acid Calcium Ferritin AST Alkaline Phosphatase Magnesium Lactate Dehydrogenase Total Creatine Kinase CK-MB (CK-2) C-Reactive Protein Total Protein Albumin Troponin T HDL Cholesterol Arterial Blood Glucose Urine WBC (Auto) Urine Creatinine Urine Total Protein Phenytoin Coronavirus (PCR) Crossmatch 07/12/20 07/12/20 07/12/20 05:14 05:14 05:44 WBC RBC 2.78 L Hgb 8.5 L Hct 25.3 L MCHC RDW 16.7 H Lymph % (Auto) [place] % (Auto) Eos % (Auto) Lymph # [place] # Lymph # (Auto) [place] # (Auto) Eos # (Auto) Seg Neutrophils % Seg Neuts % (Manual) 81.0 H Lymphocytes % (Manual) 6.0 L Seg Neutrophils # Seg Neutrophils # Man Lymphocytes # (Manual) 0.6 L Monocytes % (Manual) 8.0 H Eosinophils % (Manual) Monocytes # (Manual) Eosinophils # (Manual) D-Dimer Heparin Anti-Xa Level ABG pH POC ABG pCO2 POC ABG pO2 ABG pO2 ABG HCO3 ABG O2 Saturation ABG Base Excess ABG Hemoglobin ABG Oxyhemoglobin VBG pH ABG Sodium ABG Potassium ABG Glucose Oxyhemoglobin Sodium Potassium Chloride Carbon Dioxide BUN 79 H Creatinine 2.2 H Glucose 131 H POC Glucose 116 H Lactic Acid Calcium Ferritin AST Alkaline Phosphatase Magnesium Lactate Dehydrogenase Total Creatine Kinase CK-MB (CK-2) C-Reactive Protein Total Protein Albumin Troponin T HDL Cholesterol Arterial Blood Glucose Urine WBC (Auto) Urine Creatinine Urine Total Protein Phenytoin Coronavirus (PCR) Crossmatch 07/12/20 07/12/20 07/13/20 11:32 17:53 00:18 WBC RBC Hgb Hct MCHC RDW Lymph % (Auto) [place] % (Auto) Eos % (Auto) Lymph # [place] # Lymph # (Auto) [place] # (Auto) Eos # (Auto) Seg Neutrophils % Seg Neuts % (Manual) Lymphocytes % (Manual) Seg Neutrophils # Seg Neutrophils # Man Lymphocytes # (Manual) Monocytes % (Manual) Eosinophils % (Manual) Monocytes # (Manual) Eosinophils # (Manual) D-Dimer Heparin Anti-Xa Level ABG pH POC ABG pCO2 POC ABG pO2 ABG pO2 ABG HCO3 ABG O2 Saturation ABG Base Excess ABG Hemoglobin ABG Oxyhemoglobin VBG pH ABG Sodium ABG Potassium ABG Glucose Oxyhemoglobin Sodium Potassium Chloride Carbon Dioxide BUN Creatinine Glucose POC Glucose 132 H 155 H 162 H Lactic Acid Calcium Ferritin AST Alkaline Phosphatase Magnesium Lactate Dehydrogenase Total Creatine Kinase CK-MB (CK-2) C-Reactive Protein Total Protein Albumin Troponin T HDL Cholesterol Arterial Blood Glucose Urine WBC (Auto) Urine Creatinine Urine Total Protein Phenytoin Coronavirus (PCR) Crossmatch 07/13/20 07/13/20 07/13/20 04:53 04:53 06:14 WBC RBC 2.86 L Hgb 8.4 L Hct 25.7 L MCHC RDW 16.8 H Lymph % (Auto) [place] % (Auto) Eos % (Auto) Lymph # [place] # Lymph # (Auto) [place] # (Auto) Eos # (Auto) Seg Neutrophils % Seg Neuts % (Manual) 84.0 H Lymphocytes % (Manual) 7.0 L Seg Neutrophils # Seg Neutrophils # Man Lymphocytes # (Manual) 0.6 L Monocytes % (Manual) Eosinophils % (Manual) Monocytes # (Manual) Eosinophils # (Manual) D-Dimer Heparin Anti-Xa Level ABG pH POC ABG pCO2 POC ABG pO2 ABG pO2 ABG HCO3 ABG O2 Saturation ABG Base Excess ABG Hemoglobin ABG Oxyhemoglobin VBG pH ABG Sodium ABG Potassium ABG Glucose Oxyhemoglobin Sodium 136 L Potassium Chloride Carbon Dioxide BUN 78 H Creatinine 2.0 H Glucose 130 H POC Glucose 141 H Lactic Acid Calcium Ferritin AST Alkaline Phosphatase Magnesium Lactate Dehydrogenase Total Creatine Kinase CK-MB (CK-2) C-Reactive Protein Total Protein Albumin Troponin T HDL Cholesterol Arterial Blood Glucose Urine WBC (Auto) Urine Creatinine Urine Total Protein Phenytoin Coronavirus (PCR) Crossmatch 07/13/20 07/13/20 07/14/20 12:50 18:27 00:22 WBC RBC Hgb Hct MCHC RDW Lymph % (Auto) [place] % (Auto) Eos % (Auto) Lymph # [place] # Lymph # (Auto) [place] # (Auto) Eos # (Auto) Seg Neutrophils % Seg Neuts % (Manual) Lymphocytes % (Manual) Seg Neutrophils # Seg Neutrophils # Man Lymphocytes # (Manual) Monocytes % (Manual) Eosinophils % (Manual) Monocytes # (Manual) Eosinophils # (Manual) D-Dimer Heparin Anti-Xa Level ABG pH POC ABG pCO2 POC ABG pO2 ABG pO2 ABG HCO3 ABG O2 Saturation ABG Base Excess ABG Hemoglobin ABG Oxyhemoglobin VBG pH ABG Sodium ABG Potassium ABG Glucose Oxyhemoglobin Sodium Potassium Chloride Carbon Dioxide BUN Creatinine Glucose POC Glucose 146 H 149 H 157 H Lactic Acid Calcium Ferritin AST Alkaline Phosphatase Magnesium Lactate Dehydrogenase Total Creatine Kinase CK-MB (CK-2) C-Reactive Protein Total Protein Albumin Troponin T HDL Cholesterol Arterial Blood Glucose Urine WBC (Auto) Urine Creatinine Urine Total Protein Phenytoin Coronavirus (PCR) Crossmatch 07/14/20 07/14/20 07/14/20 05:43 08:04 12:12 WBC RBC Hgb Hct MCHC RDW Lymph % (Auto) [place] % (Auto) Eos % (Auto) Lymph # [place] # Lymph # (Auto) [place] # (Auto) Eos # (Auto) Seg Neutrophils % Seg Neuts % (Manual) Lymphocytes % (Manual) Seg Neutrophils # Seg Neutrophils # Man Lymphocytes # (Manual) Monocytes % (Manual) Eosinophils % (Manual) Monocytes # (Manual) Eosinophils # (Manual) D-Dimer Heparin Anti-Xa Level ABG pH POC ABG pCO2 POC ABG pO2 ABG pO2 ABG HCO3 ABG O2 Saturation ABG Base Excess ABG Hemoglobin ABG Oxyhemoglobin VBG pH ABG Sodium ABG Potassium ABG Glucose Oxyhemoglobin Sodium Potassium Chloride Carbon Dioxide BUN Creatinine Glucose POC Glucose 169 H 185 H Lactic Acid Calcium Ferritin AST Alkaline Phosphatase Magnesium Lactate Dehydrogenase Total Creatine Kinase CK-MB (CK-2) C-Reactive Protein Total Protein Albumin Troponin T HDL Cholesterol Arterial Blood Glucose Urine WBC (Auto) Urine Creatinine Urine Total Protein Phenytoin Coronavirus (PCR) Positive A Crossmatch 07/14/20 07/15/20 07/15/20 17:23 00:04 06:06 WBC RBC Hgb Hct MCHC RDW Lymph % (Auto) [place] % (Auto) Eos % (Auto) Lymph # [place] # Lymph # (Auto) [place] # (Auto) Eos # (Auto) Seg Neutrophils % Seg Neuts % (Manual) Lymphocytes % (Manual) Seg Neutrophils # Seg Neutrophils # Man Lymphocytes # (Manual) Monocytes % (Manual) Eosinophils % (Manual) Monocytes # (Manual) Eosinophils # (Manual) D-Dimer Heparin Anti-Xa Level ABG pH POC ABG pCO2 POC ABG pO2 ABG pO2 ABG HCO3 ABG O2 Saturation ABG Base Excess ABG Hemoglobin ABG Oxyhemoglobin VBG pH ABG Sodium ABG Potassium ABG Glucose Oxyhemoglobin Sodium Potassium Chloride Carbon Dioxide BUN Creatinine Glucose POC Glucose 138 H 121 H 140 H Lactic Acid Calcium Ferritin AST Alkaline Phosphatase Magnesium Lactate Dehydrogenase Total Creatine Kinase CK-MB (CK-2) C-Reactive Protein Total Protein Albumin Troponin T HDL Cholesterol Arterial Blood Glucose Urine WBC (Auto) Urine Creatinine Urine Total Protein Phenytoin Coronavirus (PCR) Crossmatch 07/15/20 07/15/20 07/15/20 12:00 17:53 23:53 WBC RBC Hgb Hct MCHC RDW Lymph % (Auto) [place] % (Auto) Eos % (Auto) Lymph # [place] # Lymph # (Auto) [place] # (Auto) Eos # (Auto) Seg Neutrophils % Seg Neuts % (Manual) Lymphocytes % (Manual) Seg Neutrophils # Seg Neutrophils # Man Lymphocytes # (Manual) Monocytes % (Manual) Eosinophils % (Manual) Monocytes # (Manual) Eosinophils # (Manual) D-Dimer Heparin Anti-Xa Level ABG pH POC ABG pCO2 POC ABG pO2 ABG pO2 ABG HCO3 ABG O2 Saturation ABG Base Excess ABG Hemoglobin ABG Oxyhemoglobin VBG pH ABG Sodium ABG Potassium ABG Glucose Oxyhemoglobin Sodium Potassium Chloride Carbon Dioxide BUN Creatinine Glucose POC Glucose 137 H 161 H 156 H Lactic Acid Calcium Ferritin AST Alkaline Phosphatase Magnesium Lactate Dehydrogenase Total Creatine Kinase CK-MB (CK-2) C-Reactive Protein Total Protein Albumin Troponin T HDL Cholesterol Arterial Blood Glucose Urine WBC (Auto) Urine Creatinine Urine Total Protein Phenytoin Coronavirus (PCR) Crossmatch 07/16/20 07/16/20 07/17/20 05:26 17:44 00:07 WBC RBC Hgb Hct MCHC RDW Lymph % (Auto) [place] % (Auto) Eos % (Auto) Lymph # [place] # Lymph # (Auto) [place] # (Auto) Eos # (Auto) Seg Neutrophils % Seg Neuts % (Manual) Lymphocytes % (Manual) Seg Neutrophils # Seg Neutrophils # Man Lymphocytes # (Manual) Monocytes % (Manual) Eosinophils % (Manual) Monocytes # (Manual) Eosinophils # (Manual) D-Dimer Heparin Anti-Xa Level ABG pH POC ABG pCO2 POC ABG pO2 ABG pO2 ABG HCO3 ABG O2 Saturation ABG Base Excess ABG Hemoglobin ABG Oxyhemoglobin VBG pH ABG Sodium ABG Potassium ABG Glucose Oxyhemoglobin Sodium Potassium Chloride Carbon Dioxide BUN Creatinine Glucose POC Glucose 152 H 126 H 189 H Lactic Acid Calcium Ferritin AST Alkaline Phosphatase Magnesium Lactate Dehydrogenase Total Creatine Kinase CK-MB (CK-2) C-Reactive Protein Total Protein Albumin Troponin T HDL Cholesterol Arterial Blood Glucose Urine WBC (Auto) Urine Creatinine Urine Total Protein Phenytoin Coronavirus (PCR) Crossmatch 07/17/20 07/17/20 07/17/20 12:06 18:20 23:25 WBC RBC Hgb Hct MCHC RDW Lymph % (Auto) [place] % (Auto) Eos % (Auto) Lymph # [place] # Lymph # (Auto) [place] # (Auto) Eos # (Auto) Seg Neutrophils % Seg Neuts % (Manual) Lymphocytes % (Manual) Seg Neutrophils # Seg Neutrophils # Man Lymphocytes # (Manual) Monocytes % (Manual) Eosinophils % (Manual) Monocytes # (Manual) Eosinophils # (Manual) D-Dimer Heparin Anti-Xa Level ABG pH POC ABG pCO2 POC ABG pO2 ABG pO2 ABG HCO3 ABG O2 Saturation ABG Base Excess ABG Hemoglobin ABG Oxyhemoglobin VBG pH ABG Sodium ABG Potassium ABG Glucose Oxyhemoglobin Sodium Potassium Chloride Carbon Dioxide BUN Creatinine Glucose POC Glucose 155 H 206 H 161 H Lactic Acid Calcium Ferritin AST Alkaline Phosphatase Magnesium Lactate Dehydrogenase Total Creatine Kinase CK-MB (CK-2) C-Reactive Protein Total Protein Albumin Troponin T HDL Cholesterol Arterial Blood Glucose Urine WBC (Auto) Urine Creatinine Urine Total Protein Phenytoin Coronavirus (PCR) Crossmatch 07/18/20 07/18/20 07/18/20 04:24 05:16 11:53 WBC RBC Hgb Hct MCHC RDW Lymph % (Auto) [place] % (Auto) Eos % (Auto) Lymph # [place] # Lymph # (Auto) [place] # (Auto) Eos # (Auto) Seg Neutrophils % Seg Neuts % (Manual) Lymphocytes % (Manual) Seg Neutrophils # Seg Neutrophils # Man Lymphocytes # (Manual) Monocytes % (Manual) Eosinophils % (Manual) Monocytes # (Manual) Eosinophils # (Manual) D-Dimer Heparin Anti-Xa Level ABG pH POC ABG pCO2 POC ABG pO2 ABG pO2 ABG HCO3 ABG O2 Saturation ABG Base Excess ABG Hemoglobin 8.8 L ABG Oxyhemoglobin VBG pH ABG Sodium 131.6 L ABG Potassium 4.9 H ABG Glucose 131 H Oxyhemoglobin Sodium Potassium Chloride Carbon Dioxide BUN Creatinine Glucose POC Glucose 140 H 176 H Lactic Acid Calcium Ferritin AST Alkaline Phosphatase Magnesium Lactate Dehydrogenase Total Creatine Kinase CK-MB (CK-2) C-Reactive Protein Total Protein Albumin Troponin T HDL Cholesterol Arterial Blood Glucose 131 H Urine WBC (Auto) Urine Creatinine Urine Total Protein Phenytoin Coronavirus (PCR) Crossmatch 07/18/20 07/18/20 07/19/20 18:11 23:51 01:05 WBC RBC 2.76 L Hgb 7.9 L Hct 24.5 L MCHC RDW 17.6 H Lymph % (Auto) 11.6 L [place] % (Auto) 13.1 H Eos % (Auto) Lymph # [place] # Lymph # (Auto) 1.0 L [place] # (Auto) 1.1 H Eos # (Auto) Seg Neutrophils % 70.9 H Seg Neuts % (Manual) Lymphocytes % (Manual) Seg Neutrophils # Seg Neutrophils # Man Lymphocytes # (Manual) Monocytes % (Manual) Eosinophils % (Manual) Monocytes # (Manual) Eosinophils # (Manual) D-Dimer Heparin Anti-Xa Level ABG pH POC ABG pCO2 POC ABG pO2 ABG pO2 ABG HCO3 ABG O2 Saturation ABG Base Excess ABG Hemoglobin ABG Oxyhemoglobin VBG pH ABG Sodium ABG Potassium ABG Glucose Oxyhemoglobin Sodium Potassium Chloride Carbon Dioxide BUN Creatinine Glucose POC Glucose 143 H 159 H Lactic Acid Calcium Ferritin AST Alkaline Phosphatase Magnesium Lactate Dehydrogenase Total Creatine Kinase CK-MB (CK-2) C-Reactive Protein Total Protein Albumin Troponin T HDL Cholesterol Arterial Blood Glucose Urine WBC (Auto) Urine Creatinine Urine Total Protein Phenytoin Coronavirus (PCR) Crossmatch 07/19/20 07/19/20 07/19/20 01:05 05:54 12:46 WBC RBC Hgb Hct MCHC RDW Lymph % (Auto) [place] % (Auto) Eos % (Auto) Lymph # [place] # Lymph # (Auto) [place] # (Auto) Eos # (Auto) Seg Neutrophils % Seg Neuts % (Manual) Lymphocytes % (Manual) Seg Neutrophils # Seg Neutrophils # Man Lymphocytes # (Manual) Monocytes % (Manual) Eosinophils % (Manual) Monocytes # (Manual) Eosinophils # (Manual) D-Dimer Heparin Anti-Xa Level ABG pH POC ABG pCO2 POC ABG pO2 ABG pO2 ABG HCO3 ABG O2 Saturation ABG Base Excess ABG Hemoglobin ABG Oxyhemoglobin VBG pH ABG Sodium ABG Potassium ABG Glucose Oxyhemoglobin Sodium Potassium Chloride Carbon Dioxide BUN 86 H Creatinine 1.7 H Glucose 149 H POC Glucose 176 H 127 H Lactic Acid Calcium Ferritin AST Alkaline Phosphatase Magnesium Lactate Dehydrogenase Total Creatine Kinase CK-MB (CK-2) C-Reactive Protein Total Protein Albumin Troponin T HDL Cholesterol Arterial Blood Glucose Urine WBC (Auto) Urine Creatinine Urine Total Protein Phenytoin Coronavirus (PCR) Crossmatch 07/19/20 07/20/20 07/20/20 17:48 00:34 05:28 WBC RBC Hgb Hct MCHC RDW Lymph % (Auto) [place] % (Auto) Eos % (Auto) Lymph # [place] # Lymph # (Auto) [place] # (Auto) Eos # (Auto) Seg Neutrophils % Seg Neuts % (Manual) Lymphocytes % (Manual) Seg Neutrophils # Seg Neutrophils # Man Lymphocytes # (Manual) Monocytes % (Manual) Eosinophils % (Manual) Monocytes # (Manual) Eosinophils # (Manual) D-Dimer Heparin Anti-Xa Level ABG pH POC ABG pCO2 POC ABG pO2 ABG pO2 ABG HCO3 ABG O2 Saturation ABG Base Excess ABG Hemoglobin ABG Oxyhemoglobin VBG pH ABG Sodium ABG Potassium ABG Glucose Oxyhemoglobin Sodium Potassium Chloride Carbon Dioxide BUN Creatinine Glucose POC Glucose 123 H 147 H 110 H Lactic Acid Calcium Ferritin AST Alkaline Phosphatase Magnesium Lactate Dehydrogenase Total Creatine Kinase CK-MB (CK-2) C-Reactive Protein Total Protein Albumin Troponin T HDL Cholesterol Arterial Blood Glucose Urine WBC (Auto) Urine Creatinine Urine Total Protein Phenytoin Coronavirus (PCR) Crossmatch 07/20/20 07/20/20 07/21/20 12:10 17:00 00:11 WBC RBC Hgb Hct MCHC RDW Lymph % (Auto) [place] % (Auto) Eos % (Auto) Lymph # [place] # Lymph # (Auto) [place] # (Auto) Eos # (Auto) Seg Neutrophils % Seg Neuts % (Manual) Lymphocytes % (Manual) Seg Neutrophils # Seg Neutrophils # Man Lymphocytes # (Manual) Monocytes % (Manual) Eosinophils % (Manual) Monocytes # (Manual) Eosinophils # (Manual) D-Dimer Heparin Anti-Xa Level ABG pH POC ABG pCO2 POC ABG pO2 ABG pO2 ABG HCO3 ABG O2 Saturation ABG Base Excess ABG Hemoglobin ABG Oxyhemoglobin VBG pH ABG Sodium ABG Potassium ABG Glucose Oxyhemoglobin Sodium Potassium Chloride Carbon Dioxide BUN Creatinine Glucose POC Glucose 149 H 173 H 128 H Lactic Acid Calcium Ferritin AST Alkaline Phosphatase Magnesium Lactate Dehydrogenase Total Creatine Kinase CK-MB (CK-2) C-Reactive Protein Total Protein Albumin Troponin T HDL Cholesterol Arterial Blood Glucose Urine WBC (Auto) Urine Creatinine Urine Total Protein Phenytoin Coronavirus (PCR) Crossmatch 07/21/20 07/21/20 07/21/20 05:30 12:21 18:17 WBC RBC Hgb Hct MCHC RDW Lymph % (Auto) [place] % (Auto) Eos % (Auto) Lymph # [place] # Lymph # (Auto) [place] # (Auto) Eos # (Auto) Seg Neutrophils % Seg Neuts % (Manual) Lymphocytes % (Manual) Seg Neutrophils # Seg Neutrophils # Man Lymphocytes # (Manual) Monocytes % (Manual) Eosinophils % (Manual) Monocytes # (Manual) Eosinophils # (Manual) D-Dimer Heparin Anti-Xa Level ABG pH POC ABG pCO2 POC ABG pO2 ABG pO2 ABG HCO3 ABG O2 Saturation ABG Base Excess ABG Hemoglobin ABG Oxyhemoglobin VBG pH ABG Sodium ABG Potassium ABG Glucose Oxyhemoglobin Sodium Potassium Chloride Carbon Dioxide BUN Creatinine Glucose POC Glucose 153 H 144 H 160 H Lactic Acid Calcium Ferritin AST Alkaline Phosphatase Magnesium Lactate Dehydrogenase Total Creatine Kinase CK-MB (CK-2) C-Reactive Protein Total Protein Albumin Troponin T HDL Cholesterol Arterial Blood Glucose Urine WBC (Auto) Urine Creatinine Urine Total Protein Phenytoin Coronavirus (PCR) Crossmatch 07/22/20 07/22/20 07/22/20 00:45 05:52 12:03 WBC RBC Hgb Hct MCHC RDW Lymph % (Auto) [place] % (Auto) Eos % (Auto) Lymph # [place] # Lymph # (Auto) [place] # (Auto) Eos # (Auto) Seg Neutrophils % Seg Neuts % (Manual) Lymphocytes % (Manual) Seg Neutrophils # Seg Neutrophils # Man Lymphocytes # (Manual) Monocytes % (Manual) Eosinophils % (Manual) Monocytes # (Manual) Eosinophils # (Manual) D-Dimer Heparin Anti-Xa Level ABG pH POC ABG pCO2 POC ABG pO2 ABG pO2 ABG HCO3 ABG O2 Saturation ABG Base Excess ABG Hemoglobin ABG Oxyhemoglobin VBG pH ABG Sodium ABG Potassium ABG Glucose Oxyhemoglobin Sodium Potassium Chloride Carbon Dioxide BUN Creatinine Glucose POC Glucose 128 H 126 H 157 H Lactic Acid Calcium Ferritin AST Alkaline Phosphatase Magnesium Lactate Dehydrogenase Total Creatine Kinase CK-MB (CK-2) C-Reactive Protein Total Protein Albumin Troponin T HDL Cholesterol Arterial Blood Glucose Urine WBC (Auto) Urine Creatinine Urine Total Protein Phenytoin Coronavirus (PCR) Crossmatch 07/22/20 07/22/20 07/23/20 18:23 23:20 06:06 WBC RBC Hgb Hct MCHC RDW Lymph % (Auto) [place] % (Auto) Eos % (Auto) Lymph # [place] # Lymph # (Auto) [place] # (Auto) Eos # (Auto) Seg Neutrophils % Seg Neuts % (Manual) Lymphocytes % (Manual) Seg Neutrophils # Seg Neutrophils # Man Lymphocytes # (Manual) Monocytes % (Manual) Eosinophils % (Manual) Monocytes # (Manual) Eosinophils # (Manual) D-Dimer Heparin Anti-Xa Level ABG pH POC ABG pCO2 POC ABG pO2 ABG pO2 ABG HCO3 ABG O2 Saturation ABG Base Excess ABG Hemoglobin ABG Oxyhemoglobin VBG pH ABG Sodium ABG Potassium ABG Glucose Oxyhemoglobin Sodium Potassium Chloride Carbon Dioxide BUN Creatinine Glucose POC Glucose 152 H 122 H 143 H Lactic Acid Calcium Ferritin AST Alkaline Phosphatase Magnesium Lactate Dehydrogenase Total Creatine Kinase CK-MB (CK-2) C-Reactive Protein Total Protein Albumin Troponin T HDL Cholesterol Arterial Blood Glucose Urine WBC (Auto) Urine Creatinine Urine Total Protein Phenytoin Coronavirus (PCR) Crossmatch 07/23/20 07/23/20 07/23/20 12:11 17:38 19:23 WBC RBC Hgb Hct MCHC RDW Lymph % (Auto) [place] % (Auto) Eos % (Auto) Lymph # [place] # Lymph # (Auto) [place] # (Auto) Eos # (Auto) Seg Neutrophils % Seg Neuts % (Manual) Lymphocytes % (Manual) Seg Neutrophils # Seg Neutrophils # Man Lymphocytes # (Manual) Monocytes % (Manual) Eosinophils % (Manual) Monocytes # (Manual) Eosinophils # (Manual) D-Dimer Heparin Anti-Xa Level ABG pH POC ABG pCO2 POC ABG pO2 ABG pO2 ABG HCO3 ABG O2 Saturation ABG Base Excess ABG Hemoglobin ABG Oxyhemoglobin VBG pH ABG Sodium ABG Potassium ABG Glucose Oxyhemoglobin Sodium 129 L D Potassium 5.8 H Chloride 95.6 L Carbon Dioxide BUN 98 H Creatinine 2.1 H Glucose 167 H POC Glucose 210 H 181 H Lactic Acid Calcium Ferritin AST Alkaline Phosphatase Magnesium Lactate Dehydrogenase Total Creatine Kinase CK-MB (CK-2) C-Reactive Protein Total Protein Albumin 2.2 L Troponin T HDL Cholesterol Arterial Blood Glucose Urine WBC (Auto) Urine Creatinine Urine Total Protein Phenytoin Coronavirus (PCR) Crossmatch 07/24/20 07/24/20 07/24/20 00:00 04:29 04:29 WBC RBC 2.53 L Hgb 7.5 L Hct 22.8 L MCHC RDW 16.8 H Lymph % (Auto) 9.4 L [place] % (Auto) 10.4 H Eos % (Auto) 5.9 H Lymph # [place] # Lymph # (Auto) 0.8 L [place] # (Auto) 0.9 H Eos # (Auto) 0.5 H Seg Neutrophils % 73.5 H Seg Neuts % (Manual) Lymphocytes % (Manual) Seg Neutrophils # Seg Neutrophils # Man Lymphocytes # (Manual) Monocytes % (Manual) Eosinophils % (Manual) Monocytes # (Manual) Eosinophils # (Manual) D-Dimer Heparin Anti-Xa Level ABG pH POC ABG pCO2 POC ABG pO2 ABG pO2 ABG HCO3 ABG O2 Saturation ABG Base Excess ABG Hemoglobin ABG Oxyhemoglobin VBG pH ABG Sodium ABG Potassium ABG Glucose Oxyhemoglobin Sodium Potassium Chloride Carbon Dioxide BUN Creatinine Glucose POC Glucose 201 H Lactic Acid Calcium Ferritin AST Alkaline Phosphatase Magnesium Lactate Dehydrogenase Total Creatine Kinase CK-MB (CK-2) C-Reactive Protein Total Protein Albumin Troponin T HDL Cholesterol Arterial Blood Glucose Urine WBC (Auto) Urine Creatinine Urine Total Protein Phenytoin 9.4 L Coronavirus (PCR) Crossmatch 07/24/20 07/24/20 07/24/20 04:29 05:11 12:14 WBC RBC Hgb Hct MCHC RDW Lymph % (Auto) [place] % (Auto) Eos % (Auto) Lymph # [place] # Lymph # (Auto) [place] # (Auto) Eos # (Auto) Seg Neutrophils % Seg Neuts % (Manual) Lymphocytes % (Manual) Seg Neutrophils # Seg Neutrophils # Man Lymphocytes # (Manual) Monocytes % (Manual) Eosinophils % (Manual) Monocytes # (Manual) Eosinophils # (Manual) D-Dimer Heparin Anti-Xa Level ABG pH POC ABG pCO2 POC ABG pO2 ABG pO2 ABG HCO3 ABG O2 Saturation ABG Base Excess ABG Hemoglobin ABG Oxyhemoglobin VBG pH ABG Sodium ABG Potassium ABG Glucose Oxyhemoglobin Sodium 134 L Potassium 5.5 H Chloride Carbon Dioxide BUN 97 H Creatinine 2.2 H Glucose 149 H POC Glucose 142 H 146 H Lactic Acid Calcium Ferritin AST Alkaline Phosphatase Magnesium 2.60 H Lactate Dehydrogenase Total Creatine Kinase CK-MB (CK-2) C-Reactive Protein Total Protein Albumin Troponin T HDL Cholesterol Arterial Blood Glucose Urine WBC (Auto) Urine Creatinine Urine Total Protein Phenytoin Coronavirus (PCR) Crossmatch 07/24/20 07/24/20 07/25/20 18:12 21:00 00:08 WBC RBC Hgb Hct MCHC RDW Lymph % (Auto) [place] % (Auto) Eos % (Auto) Lymph # [place] # Lymph # (Auto) [place] # (Auto) Eos # (Auto) Seg Neutrophils % Seg Neuts % (Manual) Lymphocytes % (Manual) Seg Neutrophils # Seg Neutrophils # Man Lymphocytes # (Manual) Monocytes % (Manual) Eosinophils % (Manual) Monocytes # (Manual) Eosinophils # (Manual) D-Dimer Heparin Anti-Xa Level ABG pH POC ABG pCO2 POC ABG pO2 ABG pO2 ABG HCO3 ABG O2 Saturation ABG Base Excess ABG Hemoglobin ABG Oxyhemoglobin VBG pH ABG Sodium ABG Potassium ABG Glucose Oxyhemoglobin Sodium Potassium Chloride Carbon Dioxide BUN Creatinine Glucose POC Glucose 182 H 170 H 129 H Lactic Acid Calcium Ferritin AST Alkaline Phosphatase Magnesium Lactate Dehydrogenase Total Creatine Kinase CK-MB (CK-2) C-Reactive Protein Total Protein Albumin Troponin T HDL Cholesterol Arterial Blood Glucose Urine WBC (Auto) Urine Creatinine Urine Total Protein Phenytoin Coronavirus (PCR) Crossmatch 07/25/20 07/25/20 07/25/20 04:24 04:24 12:19 WBC RBC 2.51 L Hgb 7.5 L Hct 22.3 L MCHC RDW 17.4 H Lymph % (Auto) [place] % (Auto) Eos % (Auto) Lymph # [place] # Lymph # (Auto) [place] # (Auto) Eos # (Auto) Seg Neutrophils % Seg Neuts % (Manual) Lymphocytes % (Manual) Seg Neutrophils # Seg Neutrophils # Man Lymphocytes # (Manual) Monocytes % (Manual) Eosinophils % (Manual) Monocytes # (Manual) Eosinophils # (Manual) D-Dimer Heparin Anti-Xa Level ABG pH POC ABG pCO2 POC ABG pO2 ABG pO2 ABG HCO3 ABG O2 Saturation ABG Base Excess ABG Hemoglobin ABG Oxyhemoglobin VBG pH ABG Sodium ABG Potassium ABG Glucose Oxyhemoglobin Sodium 132 L Potassium Chloride 95.1 L Carbon Dioxide 21 L BUN 95 H Creatinine 2.5 H Glucose 108 H POC Glucose 122 H Lactic Acid Calcium Ferritin AST Alkaline Phosphatase Magnesium Lactate Dehydrogenase Total Creatine Kinase CK-MB (CK-2) C-Reactive Protein Total Protein Albumin Troponin T HDL Cholesterol Arterial Blood Glucose Urine WBC (Auto) Urine Creatinine Urine Total Protein Phenytoin Coronavirus (PCR) Crossmatch 07/25/20 07/25/20 07/26/20 18:11 23:24 04:22 WBC RBC Hgb Hct MCHC RDW Lymph % (Auto) [place] % (Auto) Eos % (Auto) Lymph # [place] # Lymph # (Auto) [place] # (Auto) Eos # (Auto) Seg Neutrophils % Seg Neuts % (Manual) Lymphocytes % (Manual) Seg Neutrophils # Seg Neutrophils # Man Lymphocytes # (Manual) Monocytes % (Manual) Eosinophils % (Manual) Monocytes # (Manual) Eosinophils # (Manual) D-Dimer Heparin Anti-Xa Level ABG pH POC ABG pCO2 POC ABG pO2 ABG pO2 ABG HCO3 ABG O2 Saturation ABG Base Excess ABG Hemoglobin ABG Oxyhemoglobin VBG pH ABG Sodium ABG Potassium ABG Glucose Oxyhemoglobin Sodium 132 L Potassium Chloride 96.2 L Carbon Dioxide 21 L BUN 99 H Creatinine 2.5 H Glucose 132 H POC Glucose 137 H 117 H Lactic Acid Calcium 8.2 L Ferritin AST Alkaline Phosphatase Magnesium Lactate Dehydrogenase Total Creatine Kinase CK-MB (CK-2) C-Reactive Protein Total Protein Albumin Troponin T HDL Cholesterol Arterial Blood Glucose Urine WBC (Auto) Urine Creatinine Urine Total Protein Phenytoin Coronavirus (PCR) Crossmatch 07/26/20 07/26/20 07/26/20 05:58 12:21 17:31 WBC RBC Hgb Hct MCHC RDW Lymph % (Auto) [place] % (Auto) Eos % (Auto) Lymph # [place] # Lymph # (Auto) [place] # (Auto) Eos # (Auto) Seg Neutrophils % Seg Neuts % (Manual) Lymphocytes % (Manual) Seg Neutrophils # Seg Neutrophils # Man Lymphocytes # (Manual) Monocytes % (Manual) Eosinophils % (Manual) Monocytes # (Manual) Eosinophils # (Manual) D-Dimer Heparin Anti-Xa Level ABG pH POC ABG pCO2 POC ABG pO2 ABG pO2 ABG HCO3 ABG O2 Saturation ABG Base Excess ABG Hemoglobin ABG Oxyhemoglobin VBG pH ABG Sodium ABG Potassium ABG Glucose Oxyhemoglobin Sodium Potassium Chloride Carbon Dioxide BUN Creatinine Glucose POC Glucose 110 H 142 H 180 H Lactic Acid Calcium Ferritin AST Alkaline Phosphatase Magnesium Lactate Dehydrogenase Total Creatine Kinase CK-MB (CK-2) C-Reactive Protein Total Protein Albumin Troponin T HDL Cholesterol Arterial Blood Glucose Urine WBC (Auto) Urine Creatinine Urine Total Protein Phenytoin Coronavirus (PCR) Crossmatch 07/26/20 07/27/20 07/27/20 23:36 03:36 05:36 WBC RBC 2.49 L Hgb 7.3 L Hct 22.2 L MCHC RDW 17.2 H Lymph % (Auto) 11.0 L [place] % (Auto) 11.7 H Eos % (Auto) Lymph # [place] # Lymph # (Auto) 0.8 L [place] # (Auto) 0.9 H Eos # (Auto) Seg Neutrophils % 72.3 H Seg Neuts % (Manual) Lymphocytes % (Manual) Seg Neutrophils # Seg Neutrophils # Man Lymphocytes # (Manual) Monocytes % (Manual) Eosinophils % (Manual) Monocytes # (Manual) Eosinophils # (Manual) D-Dimer Heparin Anti-Xa Level ABG pH POC ABG pCO2 POC ABG pO2 ABG pO2 ABG HCO3 ABG O2 Saturation ABG Base Excess ABG Hemoglobin ABG Oxyhemoglobin VBG pH ABG Sodium ABG Potassium ABG Glucose Oxyhemoglobin Sodium Potassium Chloride Carbon Dioxide BUN Creatinine Glucose POC Glucose 162 H 118 H Lactic Acid Calcium Ferritin AST Alkaline Phosphatase Magnesium Lactate Dehydrogenase Total Creatine Kinase CK-MB (CK-2) C-Reactive Protein Total Protein Albumin Troponin T HDL Cholesterol Arterial Blood Glucose Urine WBC (Auto) Urine Creatinine Urine Total Protein Phenytoin Coronavirus (PCR) Crossmatch 07/27/20 07/27/20 07/27/20 05:36 12:19 17:36 WBC RBC Hgb Hct MCHC RDW Lymph % (Auto) [place] % (Auto) Eos % (Auto) Lymph # [place] # Lymph # (Auto) [place] # (Auto) Eos # (Auto) Seg Neutrophils % Seg Neuts % (Manual) Lymphocytes % (Manual) Seg Neutrophils # Seg Neutrophils # Man Lymphocytes # (Manual) Monocytes % (Manual) Eosinophils % (Manual) Monocytes # (Manual) Eosinophils # (Manual) D-Dimer Heparin Anti-Xa Level ABG pH POC ABG pCO2 POC ABG pO2 ABG pO2 ABG HCO3 ABG O2 Saturation ABG Base Excess ABG Hemoglobin ABG Oxyhemoglobin VBG pH ABG Sodium ABG Potassium ABG Glucose Oxyhemoglobin Sodium 135 L Potassium 5.3 H Chloride Carbon Dioxide 21 L BUN 103 H Creatinine 2.6 H Glucose 113 H POC Glucose 131 H 151 H Lactic Acid Calcium 8.1 L Ferritin AST Alkaline Phosphatase Magnesium Lactate Dehydrogenase Total Creatine Kinase CK-MB (CK-2) C-Reactive Protein Total Protein Albumin Troponin T HDL Cholesterol Arterial Blood Glucose Urine WBC (Auto) Urine Creatinine Urine Total Protein Phenytoin Coronavirus (PCR) Crossmatch 07/27/20 07/28/20 07/28/20 23:29 04:30 04:30 WBC RBC 2.50 L Hgb 7.3 L Hct 22.2 L MCHC RDW 17.3 H Lymph % (Auto) 8.7 L [place] % (Auto) 8.3 H Eos % (Auto) Lymph # [place] # Lymph # (Auto) 0.7 L [place] # (Auto) Eos # (Auto) Seg Neutrophils % 79.1 H Seg Neuts % (Manual) Lymphocytes % (Manual) Seg Neutrophils # Seg Neutrophils # Man Lymphocytes # (Manual) Monocytes % (Manual) Eosinophils % (Manual) Monocytes # (Manual) Eosinophils # (Manual) D-Dimer Heparin Anti-Xa Level ABG pH POC ABG pCO2 POC ABG pO2 ABG pO2 ABG HCO3 ABG O2 Saturation ABG Base Excess ABG Hemoglobin ABG Oxyhemoglobin VBG pH ABG Sodium ABG Potassium ABG Glucose Oxyhemoglobin Sodium 135 L Potassium 5.2 H Chloride 96.8 L Carbon Dioxide 20 L BUN 107 H Creatinine 2.9 H Glucose POC Glucose 124 H Lactic Acid Calcium 8.2 L Ferritin AST Alkaline Phosphatase Magnesium 2.70 H Lactate Dehydrogenase Total Creatine Kinase CK-MB (CK-2) C-Reactive Protein Total Protein Albumin Troponin T HDL Cholesterol Arterial Blood Glucose Urine WBC (Auto) Urine Creatinine Urine Total Protein Phenytoin Coronavirus (PCR) Crossmatch 07/28/20 07/29/20 07/29/20 17:35 00:11 06:45 WBC RBC Hgb Hct MCHC RDW Lymph % (Auto) [place] % (Auto) Eos % (Auto) Lymph # [place] # Lymph # (Auto) [place] # (Auto) Eos # (Auto) Seg Neutrophils % Seg Neuts % (Manual) Lymphocytes % (Manual) Seg Neutrophils # Seg Neutrophils # Man Lymphocytes # (Manual) Monocytes % (Manual) Eosinophils % (Manual) Monocytes # (Manual) Eosinophils # (Manual) D-Dimer Heparin Anti-Xa Level ABG pH POC ABG pCO2 POC ABG pO2 ABG pO2 ABG HCO3 ABG O2 Saturation ABG Base Excess ABG Hemoglobin ABG Oxyhemoglobin VBG pH ABG Sodium ABG Potassium ABG Glucose Oxyhemoglobin Sodium Potassium Chloride Carbon Dioxide BUN Creatinine Glucose POC Glucose 146 H 143 H 179 H Lactic Acid Calcium Ferritin AST Alkaline Phosphatase Magnesium Lactate Dehydrogenase Total Creatine Kinase CK-MB (CK-2) C-Reactive Protein Total Protein Albumin Troponin T HDL Cholesterol Arterial Blood Glucose Urine WBC (Auto) Urine Creatinine Urine Total Protein Phenytoin Coronavirus (PCR) Crossmatch 07/29/20 07/29/20 07/29/20 11:54 13:01 13:01 WBC RBC 2.40 L Hgb 7.1 L Hct 20.9 L MCHC RDW 17.5 H Lymph % (Auto) [place] % (Auto) Eos % (Auto) Lymph # [place] # Lymph # (Auto) [place] # (Auto) Eos # (Auto) Seg Neutrophils % Seg Neuts % (Manual) 86.0 H Lymphocytes % (Manual) 6.0 L Seg Neutrophils # Seg Neutrophils # Man 8.9 H Lymphocytes # (Manual) 0.6 L Monocytes % (Manual) 8.0 H Eosinophils % (Manual) Monocytes # (Manual) Eosinophils # (Manual) D-Dimer Heparin Anti-Xa Level ABG pH POC ABG pCO2 POC ABG pO2 ABG pO2 ABG HCO3 ABG O2 Saturation ABG Base Excess ABG Hemoglobin ABG Oxyhemoglobin VBG pH ABG Sodium ABG Potassium ABG Glucose Oxyhemoglobin Sodium 129 L Potassium Chloride 92.9 L Carbon Dioxide BUN 112 H Creatinine 3.0 H Glucose 142 H POC Glucose 170 H Lactic Acid Calcium 7.9 L Ferritin AST Alkaline Phosphatase Magnesium Lactate Dehydrogenase Total Creatine Kinase CK-MB (CK-2) C-Reactive Protein Total Protein Albumin Troponin T HDL Cholesterol Arterial Blood Glucose Urine WBC (Auto) Urine Creatinine Urine Total Protein Phenytoin Coronavirus (PCR) Crossmatch 07/29/20 07/30/20 07/30/20 22:45 05:01 11:45 WBC RBC Hgb Hct MCHC RDW Lymph % (Auto) [place] % (Auto) Eos % (Auto) Lymph # [place] # Lymph # (Auto) [place] # (Auto) Eos # (Auto) Seg Neutrophils % Seg Neuts % (Manual) Lymphocytes % (Manual) Seg Neutrophils # Seg Neutrophils # Man Lymphocytes # (Manual) Monocytes % (Manual) Eosinophils % (Manual) Monocytes # (Manual) Eosinophils # (Manual) D-Dimer Heparin Anti-Xa Level ABG pH POC ABG pCO2 POC ABG pO2 ABG pO2 ABG HCO3 ABG O2 Saturation ABG Base Excess ABG Hemoglobin ABG Oxyhemoglobin VBG pH ABG Sodium ABG Potassium ABG Glucose Oxyhemoglobin Sodium Potassium Chloride Carbon Dioxide BUN Creatinine Glucose POC Glucose 129 H 150 H 130 H Lactic Acid Calcium Ferritin AST Alkaline Phosphatase Magnesium Lactate Dehydrogenase Total Creatine Kinase CK-MB (CK-2) C-Reactive Protein Total Protein Albumin Troponin T HDL Cholesterol Arterial Blood Glucose Urine WBC (Auto) Urine Creatinine Urine Total Protein Phenytoin Coronavirus (PCR) Crossmatch 07/30/20 07/30/20 07/30/20 17:54 21:26 23:58 WBC RBC Hgb Hct MCHC RDW Lymph % (Auto) [place] % (Auto) Eos % (Auto) Lymph # [place] # Lymph # (Auto) [place] # (Auto) Eos # (Auto) Seg Neutrophils % Seg Neuts % (Manual) Lymphocytes % (Manual) Seg Neutrophils # Seg Neutrophils # Man Lymphocytes # (Manual) Monocytes % (Manual) Eosinophils % (Manual) Monocytes # (Manual) Eosinophils # (Manual) D-Dimer Heparin Anti-Xa Level ABG pH POC ABG pCO2 POC ABG pO2 ABG pO2 ABG HCO3 ABG O2 Saturation ABG Base Excess ABG Hemoglobin ABG Oxyhemoglobin VBG pH ABG Sodium ABG Potassium ABG Glucose Oxyhemoglobin Sodium Potassium Chloride Carbon Dioxide BUN Creatinine Glucose POC Glucose 143 H 124 H 142 H Lactic Acid Calcium Ferritin AST Alkaline Phosphatase Magnesium Lactate Dehydrogenase Total Creatine Kinase CK-MB (CK-2) C-Reactive Protein Total Protein Albumin Troponin T HDL Cholesterol Arterial Blood Glucose Urine WBC (Auto) Urine Creatinine Urine Total Protein Phenytoin Coronavirus (PCR) Crossmatch 07/31/20 07/31/20 07/31/20 05:43 11:35 18:07 WBC RBC Hgb Hct MCHC RDW Lymph % (Auto) [place] % (Auto) Eos % (Auto) Lymph # [place] # Lymph # (Auto) [place] # (Auto) Eos # (Auto) Seg Neutrophils % Seg Neuts % (Manual) Lymphocytes % (Manual) Seg Neutrophils # Seg Neutrophils # Man Lymphocytes # (Manual) Monocytes % (Manual) Eosinophils % (Manual) Monocytes # (Manual) Eosinophils # (Manual) D-Dimer Heparin Anti-Xa Level ABG pH POC ABG pCO2 POC ABG pO2 ABG pO2 ABG HCO3 ABG O2 Saturation ABG Base Excess ABG Hemoglobin ABG Oxyhemoglobin VBG pH ABG Sodium ABG Potassium ABG Glucose Oxyhemoglobin Sodium Potassium Chloride Carbon Dioxide BUN Creatinine Glucose POC Glucose 152 H 179 H 129 H Lactic Acid Calcium Ferritin AST Alkaline Phosphatase Magnesium Lactate Dehydrogenase Total Creatine Kinase CK-MB (CK-2) C-Reactive Protein Total Protein Albumin Troponin T HDL Cholesterol Arterial Blood Glucose Urine WBC (Auto) Urine Creatinine Urine Total Protein Phenytoin Coronavirus (PCR) Crossmatch 07/31/20 07/31/20 08/01/20 21:30 22:12 00:25 WBC RBC Hgb Hct MCHC RDW Lymph % (Auto) [place] % (Auto) Eos % (Auto) Lymph # [place] # Lymph # (Auto) [place] # (Auto) Eos # (Auto) Seg Neutrophils % Seg Neuts % (Manual) Lymphocytes % (Manual) Seg Neutrophils # Seg Neutrophils # Man Lymphocytes # (Manual) Monocytes % (Manual) Eosinophils % (Manual) Monocytes # (Manual) Eosinophils # (Manual) D-Dimer Heparin Anti-Xa Level ABG pH POC ABG pCO2 POC ABG pO2 ABG pO2 ABG HCO3 ABG O2 Saturation ABG Base Excess ABG Hemoglobin ABG Oxyhemoglobin VBG pH ABG Sodium ABG Potassium ABG Glucose Oxyhemoglobin Sodium Potassium Chloride Carbon Dioxide BUN Creatinine Glucose POC Glucose 143 H 122 H 134 H Lactic Acid Calcium Ferritin AST Alkaline Phosphatase Magnesium Lactate Dehydrogenase Total Creatine Kinase CK-MB (CK-2) C-Reactive Protein Total Protein Albumin Troponin T HDL Cholesterol Arterial Blood Glucose Urine WBC (Auto) Urine Creatinine Urine Total Protein Phenytoin Coronavirus (PCR) Crossmatch 08/01/20 08/01/20 08/01/20 04:43 05:41 12:23 WBC RBC Hgb Hct MCHC RDW Lymph % (Auto) [place] % (Auto) Eos % (Auto) Lymph # [place] # Lymph # (Auto) [place] # (Auto) Eos # (Auto) Seg Neutrophils % Seg Neuts % (Manual) Lymphocytes % (Manual) Seg Neutrophils # Seg Neutrophils # Man Lymphocytes # (Manual) Monocytes % (Manual) Eosinophils % (Manual) Monocytes # (Manual) Eosinophils # (Manual) D-Dimer Heparin Anti-Xa Level ABG pH POC ABG pCO2 POC ABG pO2 ABG pO2 ABG HCO3 ABG O2 Saturation ABG Base Excess ABG Hemoglobin ABG Oxyhemoglobin VBG pH ABG Sodium ABG Potassium ABG Glucose Oxyhemoglobin Sodium 128 L Potassium 5.8 H Chloride 90.5 L Carbon Dioxide 19 L BUN 122 H Creatinine 3.4 H Glucose 124 H POC Glucose 130 H 128 H Lactic Acid Calcium 8.0 L Ferritin AST Alkaline Phosphatase Magnesium Lactate Dehydrogenase Total Creatine Kinase CK-MB (CK-2) C-Reactive Protein Total Protein Albumin Troponin T HDL Cholesterol Arterial Blood Glucose Urine WBC (Auto) Urine Creatinine Urine Total Protein Phenytoin Coronavirus (PCR) Crossmatch 08/01/20 08/02/20 08/02/20 17:28 00:06 05:32 WBC RBC Hgb Hct MCHC RDW Lymph % (Auto) [place] % (Auto) Eos % (Auto) Lymph # [place] # Lymph # (Auto) [place] # (Auto) Eos # (Auto) Seg Neutrophils % Seg Neuts % (Manual) Lymphocytes % (Manual) Seg Neutrophils # Seg Neutrophils # Man Lymphocytes # (Manual) Monocytes % (Manual) Eosinophils % (Manual) Monocytes # (Manual) Eosinophils # (Manual) D-Dimer Heparin Anti-Xa Level ABG pH POC ABG pCO2 POC ABG pO2 ABG pO2 ABG HCO3 ABG O2 Saturation ABG Base Excess ABG Hemoglobin ABG Oxyhemoglobin VBG pH ABG Sodium ABG Potassium ABG Glucose Oxyhemoglobin Sodium Potassium Chloride Carbon Dioxide BUN Creatinine Glucose POC Glucose 121 H 128 H 177 H Lactic Acid Calcium Ferritin AST Alkaline Phosphatase Magnesium Lactate Dehydrogenase Total Creatine Kinase CK-MB (CK-2) C-Reactive Protein Total Protein Albumin Troponin T HDL Cholesterol Arterial Blood Glucose Urine WBC (Auto) Urine Creatinine Urine Total Protein Phenytoin Coronavirus (PCR) Crossmatch 08/02/20 08/02/20 08/03/20 11:25 12:34 00:08 WBC RBC Hgb Hct MCHC RDW Lymph % (Auto) [place] % (Auto) Eos % (Auto) Lymph # [place] # Lymph # (Auto) [place] # (Auto) Eos # (Auto) Seg Neutrophils % Seg Neuts % (Manual) Lymphocytes % (Manual) Seg Neutrophils # Seg Neutrophils # Man Lymphocytes # (Manual) Monocytes % (Manual) Eosinophils % (Manual) Monocytes # (Manual) Eosinophils # (Manual) D-Dimer Heparin Anti-Xa Level ABG pH 7.344 L POC ABG pCO2 POC ABG pO2 ABG pO2 101.1 H ABG HCO3 ABG O2 Saturation ABG Base Excess -4.5 L ABG Hemoglobin 6.6 L ABG Oxyhemoglobin VBG pH ABG Sodium ABG Potassium ABG Glucose Oxyhemoglobin Sodium Potassium Chloride Carbon Dioxide BUN Creatinine Glucose POC Glucose 196 H 141 H Lactic Acid Calcium Ferritin AST Alkaline Phosphatase Magnesium Lactate Dehydrogenase Total Creatine Kinase CK-MB (CK-2) C-Reactive Protein Total Protein Albumin Troponin T HDL Cholesterol Arterial Blood Glucose Urine WBC (Auto) Urine Creatinine Urine Total Protein Phenytoin Coronavirus (PCR) Crossmatch 08/03/20 08/03/20 08/03/20 04:38 04:38 04:38 WBC 14.3 H RBC 2.42 L Hgb 7.0 L Hct 21.5 L MCHC RDW 18.1 H Lymph % (Auto) [place] % (Auto) Eos % (Auto) Lymph # [place] # Lymph # (Auto) [place] # (Auto) Eos # (Auto) Seg Neutrophils % Seg Neuts % (Manual) Lymphocytes % (Manual) Seg Neutrophils # Seg Neutrophils # Man Lymphocytes # (Manual) Monocytes % (Manual) Eosinophils % (Manual) Monocytes # (Manual) Eosinophils # (Manual) D-Dimer Heparin Anti-Xa Level ABG pH POC ABG pCO2 POC ABG pO2 ABG pO2 ABG HCO3 ABG O2 Saturation ABG Base Excess ABG Hemoglobin ABG Oxyhemoglobin VBG pH ABG Sodium ABG Potassium ABG Glucose Oxyhemoglobin Sodium 130 L Potassium Chloride 90.1 L Carbon Dioxide 20 L BUN 105 H Creatinine 3.1 H Glucose 115 H POC Glucose Lactic Acid 0.40 L Calcium 8.2 L Ferritin AST Alkaline Phosphatase Magnesium Lactate Dehydrogenase Total Creatine Kinase CK-MB (CK-2) C-Reactive Protein Total Protein Albumin Troponin T HDL Cholesterol Arterial Blood Glucose Urine WBC (Auto) Urine Creatinine Urine Total Protein Phenytoin Coronavirus (PCR) Crossmatch 08/03/20 08/03/20 08/03/20 05:33 12:04 17:51 WBC RBC Hgb Hct MCHC RDW Lymph % (Auto) [place] % (Auto) Eos % (Auto) Lymph # [place] # Lymph # (Auto) [place] # (Auto) Eos # (Auto) Seg Neutrophils % Seg Neuts % (Manual) Lymphocytes % (Manual) Seg Neutrophils # Seg Neutrophils # Man Lymphocytes # (Manual) Monocytes % (Manual) Eosinophils % (Manual) Monocytes # (Manual) Eosinophils # (Manual) D-Dimer Heparin Anti-Xa Level ABG pH POC ABG pCO2 POC ABG pO2 ABG pO2 ABG HCO3 ABG O2 Saturation ABG Base Excess ABG Hemoglobin ABG Oxyhemoglobin VBG pH ABG Sodium ABG Potassium ABG Glucose Oxyhemoglobin Sodium Potassium Chloride Carbon Dioxide BUN Creatinine Glucose POC Glucose 117 H 115 H 123 H Lactic Acid Calcium Ferritin AST Alkaline Phosphatase Magnesium Lactate Dehydrogenase Total Creatine Kinase CK-MB (CK-2) C-Reactive Protein Total Protein Albumin Troponin T HDL Cholesterol Arterial Blood Glucose Urine WBC (Auto) Urine Creatinine Urine Total Protein Phenytoin Coronavirus (PCR) Crossmatch 08/03/20 08/04/20 08/04/20 23:25 01:41 05:34 WBC RBC 2.20 L Hgb 6.5 L Hct 19.5 L* MCHC RDW 18.5 H Lymph % (Auto) 9.2 L [place] % (Auto) 9.8 H Eos % (Auto) Lymph # [place] # Lymph # (Auto) 0.8 L [place] # (Auto) Eos # (Auto) Seg Neutrophils % 77.7 H Seg Neuts % (Manual) Lymphocytes % (Manual) Seg Neutrophils # Seg Neutrophils # Man Lymphocytes # (Manual) Monocytes % (Manual) Eosinophils % (Manual) Monocytes # (Manual) Eosinophils # (Manual) D-Dimer Heparin Anti-Xa Level ABG pH POC ABG pCO2 POC ABG pO2 ABG pO2 ABG HCO3 ABG O2 Saturation ABG Base Excess ABG Hemoglobin ABG Oxyhemoglobin VBG pH ABG Sodium ABG Potassium ABG Glucose Oxyhemoglobin Sodium Potassium Chloride Carbon Dioxide BUN Creatinine Glucose POC Glucose 122 H 112 H Lactic Acid Calcium Ferritin AST Alkaline Phosphatase Magnesium Lactate Dehydrogenase Total Creatine Kinase CK-MB (CK-2) C-Reactive Protein Total Protein Albumin Troponin T HDL Cholesterol Arterial Blood Glucose Urine WBC (Auto) Urine Creatinine Urine Total Protein Phenytoin Coronavirus (PCR) Crossmatch 08/04/20 08/04/20 08/05/20 12:19 17:42 00:25 WBC RBC Hgb Hct MCHC RDW Lymph % (Auto) [place] % (Auto) Eos % (Auto) Lymph # [place] # Lymph # (Auto) [place] # (Auto) Eos # (Auto) Seg Neutrophils % Seg Neuts % (Manual) Lymphocytes % (Manual) Seg Neutrophils # Seg Neutrophils # Man Lymphocytes # (Manual) Monocytes % (Manual) Eosinophils % (Manual) Monocytes # (Manual) Eosinophils # (Manual) D-Dimer Heparin Anti-Xa Level ABG pH POC ABG pCO2 POC ABG pO2 ABG pO2 ABG HCO3 ABG O2 Saturation ABG Base Excess ABG Hemoglobin ABG Oxyhemoglobin VBG pH ABG Sodium ABG Potassium ABG Glucose Oxyhemoglobin Sodium Potassium Chloride Carbon Dioxide BUN Creatinine Glucose POC Glucose 108 H 113 H 119 H Lactic Acid Calcium Ferritin AST Alkaline Phosphatase Magnesium Lactate Dehydrogenase Total Creatine Kinase CK-MB (CK-2) C-Reactive Protein Total Protein Albumin Troponin T HDL Cholesterol Arterial Blood Glucose Urine WBC (Auto) Urine Creatinine Urine Total Protein Phenytoin Coronavirus (PCR) Crossmatch 08/05/20 08/05/20 08/05/20 05:24 05:35 05:35 WBC RBC 2.13 L Hgb 6.2 L Hct 18.9 L* MCHC RDW 18.7 H Lymph % (Auto) 10.0 L [place] % (Auto) 8.5 H Eos % (Auto) Lymph # [place] # Lymph # (Auto) 0.8 L [place] # (Auto) Eos # (Auto) Seg Neutrophils % 78.1 H Seg Neuts % (Manual) Lymphocytes % (Manual) Seg Neutrophils # Seg Neutrophils # Man Lymphocytes # (Manual) Monocytes % (Manual) Eosinophils % (Manual) Monocytes # (Manual) Eosinophils # (Manual) D-Dimer Heparin Anti-Xa Level ABG pH POC ABG pCO2 POC ABG pO2 ABG pO2 ABG HCO3 ABG O2 Saturation ABG Base Excess ABG Hemoglobin ABG Oxyhemoglobin VBG pH ABG Sodium ABG Potassium ABG Glucose Oxyhemoglobin Sodium 135 L Potassium Chloride 96.3 L Carbon Dioxide BUN 89 H Creatinine 2.8 H Glucose 116 H POC Glucose 138 H Lactic Acid Calcium 7.5 L Ferritin AST 53 H Alkaline Phosphatase 501 H Magnesium Lactate Dehydrogenase Total Creatine Kinase CK-MB (CK-2) C-Reactive Protein Total Protein 6.1 L Albumin 2.2 L Troponin T HDL Cholesterol Arterial Blood Glucose Urine WBC (Auto) Urine Creatinine Urine Total Protein Phenytoin Coronavirus (PCR) Crossmatch 08/05/20 08/05/20 08/05/20 09:15 12:17 18:00 WBC RBC Hgb Hct MCHC RDW Lymph % (Auto) [place] % (Auto) Eos % (Auto) Lymph # [place] # Lymph # (Auto) [place] # (Auto) Eos # (Auto) Seg Neutrophils % Seg Neuts % (Manual) Lymphocytes % (Manual) Seg Neutrophils # Seg Neutrophils # Man Lymphocytes # (Manual) Monocytes % (Manual) Eosinophils % (Manual) Monocytes # (Manual) Eosinophils # (Manual) D-Dimer Heparin Anti-Xa Level ABG pH POC ABG pCO2 POC ABG pO2 ABG pO2 ABG HCO3 ABG O2 Saturation ABG Base Excess ABG Hemoglobin ABG Oxyhemoglobin VBG pH ABG Sodium ABG Potassium ABG Glucose Oxyhemoglobin Sodium Potassium Chloride Carbon Dioxide BUN Creatinine Glucose POC Glucose 126 H 143 H Lactic Acid Calcium Ferritin AST Alkaline Phosphatase Magnesium Lactate Dehydrogenase Total Creatine Kinase CK-MB (CK-2) C-Reactive Protein Total Protein Albumin Troponin T HDL Cholesterol Arterial Blood Glucose Urine WBC (Auto) Urine Creatinine Urine Total Protein Phenytoin Coronavirus (PCR) Crossmatch See Detail 08/06/20 08/06/20 08/07/20 00:50 04:30 04:40 WBC RBC 2.43 L 2.48 L Hgb 7.2 L 7.4 L Hct 21.7 L 22.1 L MCHC RDW 18.1 H 18.1 H Lymph % (Auto) 9.9 L 11.7 L [place] % (Auto) 10.5 H 8.6 H Eos % (Auto) Lymph # [place] # Lymph # (Auto) 0.7 L 0.9 L [place] # (Auto) Eos # (Auto) Seg Neutrophils % 75.1 H 76.1 H Seg Neuts % (Manual) Lymphocytes % (Manual) Seg Neutrophils # Seg Neutrophils # Man Lymphocytes # (Manual) Monocytes % (Manual) Eosinophils % (Manual) Monocytes # (Manual) Eosinophils # (Manual) D-Dimer Heparin Anti-Xa Level ABG pH POC ABG pCO2 POC ABG pO2 ABG pO2 ABG HCO3 ABG O2 Saturation ABG Base Excess ABG Hemoglobin ABG Oxyhemoglobin VBG pH ABG Sodium ABG Potassium ABG Glucose Oxyhemoglobin Sodium Potassium Chloride Carbon Dioxide BUN Creatinine Glucose POC Glucose 117 H Lactic Acid Calcium Ferritin AST Alkaline Phosphatase Magnesium Lactate Dehydrogenase Total Creatine Kinase CK-MB (CK-2) C-Reactive Protein Total Protein Albumin Troponin T HDL Cholesterol Arterial Blood Glucose Urine WBC (Auto) Urine Creatinine Urine Total Protein Phenytoin Coronavirus (PCR) Crossmatch 08/07/20 08/07/20 08/08/20 05:44 06:00 00:03 WBC RBC Hgb Hct MCHC RDW Lymph % (Auto) [place] % (Auto) Eos % (Auto) Lymph # [place] # Lymph # (Auto) [place] # (Auto) Eos # (Auto) Seg Neutrophils % Seg Neuts % (Manual) Lymphocytes % (Manual) Seg Neutrophils # Seg Neutrophils # Man Lymphocytes # (Manual) Monocytes % (Manual) Eosinophils % (Manual) Monocytes # (Manual) Eosinophils # (Manual) D-Dimer Heparin Anti-Xa Level ABG pH POC ABG pCO2 POC ABG pO2 ABG pO2 ABG HCO3 ABG O2 Saturation ABG Base Excess ABG Hemoglobin ABG Oxyhemoglobin VBG pH ABG Sodium ABG Potassium ABG Glucose Oxyhemoglobin Sodium 132 L Potassium 3.3 L Chloride 92.8 L Carbon Dioxide BUN 64 H Creatinine 2.4 H Glucose POC Glucose 58 L 125 H Lactic Acid Calcium 7.0 L Ferritin AST Alkaline Phosphatase Magnesium Lactate Dehydrogenase Total Creatine Kinase CK-MB (CK-2) C-Reactive Protein Total Protein Albumin Troponin T HDL Cholesterol Arterial Blood Glucose Urine WBC (Auto) Urine Creatinine Urine Total Protein Phenytoin Coronavirus (PCR) Crossmatch 08/08/20 08/08/20 08/08/20 12:58 15:00 15:00 WBC RBC 2.36 L Hgb 7.1 L Hct 21.4 L MCHC RDW 18.3 H Lymph % (Auto) [place] % (Auto) Eos % (Auto) Lymph # [place] # Lymph # (Auto) [place] # (Auto) Eos # (Auto) Seg Neutrophils % Seg Neuts % (Manual) Lymphocytes % (Manual) Seg Neutrophils # Seg Neutrophils # Man Lymphocytes # (Manual) Monocytes % (Manual) Eosinophils % (Manual) Monocytes # (Manual) Eosinophils # (Manual) D-Dimer Heparin Anti-Xa Level ABG pH POC ABG pCO2 POC ABG pO2 ABG pO2 ABG HCO3 ABG O2 Saturation ABG Base Excess ABG Hemoglobin ABG Oxyhemoglobin VBG pH ABG Sodium ABG Potassium ABG Glucose Oxyhemoglobin Sodium Potassium Chloride Carbon Dioxide BUN Creatinine Glucose POC Glucose 134 H Lactic Acid Calcium Ferritin AST Alkaline Phosphatase Magnesium Lactate Dehydrogenase Total Creatine Kinase CK-MB (CK-2) C-Reactive Protein Total Protein Albumin Troponin T HDL Cholesterol Arterial Blood Glucose Urine WBC (Auto) Urine Creatinine Urine Total Protein Phenytoin 4.7 L Coronavirus (PCR) Crossmatch 08/08/20 08/08/20 08/09/20 15:00 17:39 00:00 WBC RBC Hgb Hct MCHC RDW Lymph % (Auto) [place] % (Auto) Eos % (Auto) Lymph # [place] # Lymph # (Auto) [place] # (Auto) Eos # (Auto) Seg Neutrophils % Seg Neuts % (Manual) Lymphocytes % (Manual) Seg Neutrophils # Seg Neutrophils # Man Lymphocytes # (Manual) Monocytes % (Manual) Eosinophils % (Manual) Monocytes # (Manual) Eosinophils # (Manual) D-Dimer Heparin Anti-Xa Level ABG pH POC ABG pCO2 POC ABG pO2 ABG pO2 ABG HCO3 ABG O2 Saturation ABG Base Excess ABG Hemoglobin ABG Oxyhemoglobin VBG pH ABG Sodium ABG Potassium ABG Glucose Oxyhemoglobin Sodium 130 L Potassium 3.1 L Chloride 91.5 L Carbon Dioxide BUN 52 H Creatinine 2.3 H Glucose 135 H POC Glucose 131 H 129 H Lactic Acid Calcium 7.3 L Ferritin AST Alkaline Phosphatase Magnesium Lactate Dehydrogenase Total Creatine Kinase CK-MB (CK-2) C-Reactive Protein Total Protein Albumin Troponin T HDL Cholesterol Arterial Blood Glucose Urine WBC (Auto) Urine Creatinine Urine Total Protein Phenytoin Coronavirus (PCR) Crossmatch 08/09/20 08/09/20 05:05 07:49 WBC RBC Hgb Hct MCHC RDW Lymph % (Auto) [place] % (Auto) Eos % (Auto) Lymph # [place] # Lymph # (Auto) [place] # (Auto) Eos # (Auto) Seg Neutrophils % Seg Neuts % (Manual) Lymphocytes % (Manual) Seg Neutrophils # Seg Neutrophils # Man Lymphocytes # (Manual) Monocytes % (Manual) Eosinophils % (Manual) Monocytes # (Manual) Eosinophils # (Manual) D-Dimer Heparin Anti-Xa Level ABG pH POC ABG pCO2 POC ABG pO2 ABG pO2 ABG HCO3 ABG O2 Saturation ABG Base Excess ABG Hemoglobin ABG Oxyhemoglobin VBG pH ABG Sodium ABG Potassium ABG Glucose Oxyhemoglobin Sodium 130 L Potassium Chloride 90.1 L Carbon Dioxide BUN 56 H Creatinine 2.4 H Glucose 104 H POC Glucose 111 H Lactic Acid Calcium 7.4 L Ferritin AST Alkaline Phosphatase Magnesium Lactate Dehydrogenase Total Creatine Kinase CK-MB (CK-2) C-Reactive Protein Total Protein Albumin Troponin T HDL Cholesterol Arterial Blood Glucose Urine WBC (Auto) Urine Creatinine Urine Total Protein Phenytoin Coronavirus (PCR) Crossmatch Chest x-ray: other (none today) Allied health notes reviewed: nursing
--- NOTE | 2020-08-10 16:21 | Event Note ---
Date: 08/10/20 Family visited the patient today and signed the paper for DNR Discussed with CC attending who is in agreement Family wished for home hospice, CM sent referral
--- NOTE | 2020-08-10 16:36 | Progress Note ---
Assessment and Plan --Acute hypoxemic respiratory failure; vent dependent intubated on admission, extubated on 06/12/20 then placed on high flow o2 patient developed another respiratory arrest on 06/26 - reintubated Patient not tolerating weaning parameters CC following, Surgery evaluated the patient for trach and PEG COVID-19 test positive x3, trach and PEG pending -- Hypertension; well controlled Continue amlodipine, clonidine and hydralazine and minoxidil, closely monitor blood pressures PRN labetalol --s/p cardiopulmonary arrest on admission, 06/26 and 07/01, EF 45-50% on 2d echo, medical Mx per cardiology --Bradycardia Patient is on dopamine and epinephrine for bradycardia beta-hugh discontinued, Heart rate is in the 60s to 70s --Anoxic brain injury, neurology consulted, neuro requested MRI brain, EEG MRI brain could not be done due to body habitus, --Seizures seizure precautions; continue Keppra, and Dilantin EEG showed epileptiform discharges per review of neurology note --Rectal bleeding; resolved --Acute blood loss anemia; total 4 units PRBC transfused monitor H&H, GI following, no plans of endoscopy --Severe sepsis; completed antibiotics per ID persistently positive for COVID-19 and treated for Klebsiella pneumoniae --COVID-19 b/l PNA Completed remdesivir on 06/02 Completed dexamethasone - Last dose 06/07 COVID 19 test positive x 3 during this admission --Superficial left cephalic vein DVT/elevated D-dimers[COVID 19] Patient initially started on heparin drip from 05/29/20 D-dimers improved [phone] treated with Eliquis 5 mg twice a day for 1 week[per ID] stop date 06/26/2020 -- Acute toxic metabolic encephalopathy, POA likely from sepsis and s/p cardiac arrest with possible anoxic injury -- Acute renal failure: Worsening BUN/creatinine 123/3.4 > 105/3.1 avoid nephrotoxins, Nephrology note reviewed Status post right femoral vascular catheter placement started on hemodialysis Discussed with Dr. Koehler --Klebsiella pneumonia: ID evaluated completed second round of 5 days of cefepime on 07/04/2020 --Acute on chronic systolic heart failure Cardiology following. Ef 45% --Transaminitis. Etiology likely from COVID-19. cont to monitor --Hyperkalemia; improved --Hyponatremia Monitor electrolytes, now on HD --Shock; resolved -- DVT prophylaxis Eliquis, SCD to bilateral lower extremities while in bed -- Advance care planning Patient is critically ill with multiple medical problems Poor prognosis, family updated and patient is full code per family request The high probability of a clinically significant, sudden or life threatening deterioration of the [CLERK OF COURT, CVS, renal] system(s) required my full and direct attention, intervention and personal management. The aggregate critical care time was [34] minutes. This time is in addition to time spent performing reported procedures but includes the following: [x] Data Review and interpretation [x] Patient assessment and monitoring of vital signs [x] Documentation [x] Medication orders and management Brief History: 64 YO Female with a medical history of HTN, Diastolic CHF, Pulmonary HTN, DM, Obesity Hypoventilation Syndrome presents to ED for evaluation of shortness of breath. As per staff, the EMS was notified for difficulty breathing. Upon arrival to the patient's home the patient was found to be in distress and was subsequently transported to [facility] for further evaluation and care. In route to [facility] the patient developed cardiac arrest and was treated in accordance with ACLS protocol with return of ROSC. Patient was seen and evaluated in the emergency department and was intubated and placed on ventilatory support. Patient admitted to ICU. Critical care team consulted in ED. She was found to have COVID-19 infection and was started on steroids and remdesivir. ID was consulted. Cardiology was consulted for her systolic heart failure and cardiac arrest. Patient completed treatment for COVID-19, then develop superimposed bacterial pneumonia with Klebsiella. She is now extubated, 06/12/2020 but remains confused and requiring high flow O2 and intermittent BiPAP. Patient had another cardiac arrest reintubated 06/26/2020, currently in ICU vent dependent, unable to do trach and PEG due to persistent COVID-19 positive state, as well as anoxic brain injury, unable to get MRI , neurology following. 05/28/2020 COVID-19 test positive 06/29/2020 COVID-19 test positive 07/14/2020 COVID-19 test positive 06/01. Patient remains intubated and on ventilatory support today. Patient has multiple organ system failure and has poor prognosis. Patient did not experien ce significant medical decompensation overnight but no improvement with current therapy. 06/02. Remains intubated. her BP is elevated. Started on nicardipine drip. Cardiology following. 06/03-06/04. BP is better. Hb stable. Completed remdesivir. ID , Cardiology and Critical care team on board 06/05. Bump in creatinine. I/O reviewed. Nephrology consulted. 06/06. Has slight improvement in renal function. Nephrology on board. On SBT today. Vitals stable. 06/07. Stable renal function. No need for HD as per nephrology. She is making urine. Plan for SBT. 06/08. Off sedation and very lethargic. Her BUN is going up - effect of steroids vs GI bleed. Her hemoglobin remains stable. Will check stool guaiac. Nephrology is following. WBC bumped to 16 today. 06/09: remains intubated, wbc trended up, Cr slightly trending down. cont TF, wean off vent as tolerated. 06/10: Cr trending down, cont to wean off vent as tolerated. 06/10; Cr much improved, cont iv fluid, tolerating tube feeding. stopped vac, iv cefepime for total 10 days. 06/11; creatinine 1.5 today, sodium level has normalized. Continue tube feeding, continue cefepime for 10 days. Continue to wean off as tolerated. 06/12: planned for extubation today 06/13: extubated yesterday, now on Bipap 06/14: patient on Bipap, remains on TF, restraint. cont to follow clinically 06/15: patient on high flow O2,remains on TF, restraint. cont to follow clinicall y. transfer to [facility] 06/16: Patient remains on high flow O2, intermittently on BiPAP. Tolerating tube feeding. cont to monitor at [facility] 06/17; patient on BiPAP. Remains confused and on tube feeding. Continue to monitor at [facility]. Wean off O2 as tolerated. 06/18; patient feels slightly better on high flow oxygen, minimally communicative, stable to be transferred out of [facility] to telemetry 06/20; remains hypoxic on high flow oxygen, today noncommunicative sleeping all the time, vital signs noted 06/21; more alert and awake confused at times and pulling, restraint for safety, on high flow oxygen We will request physical therapy once more stable 06/22; PT unable to assess due to safety concerns, remains hypoxic on high flow oxygen, BiPAP at night. minimally communicative 06/23: Remains on high flow O2, order for speech eval, continue tube feeding. Creatinine noted to be elevated today -2.4, increase IV fluid hydration. 06/24: Kidney function started worsening 06/23 -likely from hypotension. patient had episodes of hypotension on 06/22. Kidney function is unchanged from yesterday. No further episodes of hypotension. Follow-up electrolytes and renal function. patient remains on high flow O2 06/25: patient on 15L o2 with n/c. on Bipap at night. follow renal function and follow bmp . Placement not possible as patient unfunded. wean off o2 as tolerated. 06/26: hb 6.9 today, transfuse one unit. wean off from O2 as tolerated. check stool for occult blood. consult GI if stool is positive for blood. 06/27; Code blue called yesterday. ACLS initiated, Pt found to have Asystolic Arrest with eventual return of perfusing cardiac rhythm. patient reintubated during code, transferred to ICU, called family and updated 06/28: Patient is spiking fever, started on empiric antibiotic, ordered blood urine and sputum culture. We will reconsult ID. Discussed with patient's son in the evening. Family wants to continue full CODE STATUS. Discussed with critical care attending and RN in length. 06/29: Repeat COVID-19 test is positive. Patient remains on ventilator, continue tube feeding diet. Renal function stable, H&H stable. GI recommendation appreciated -no plan for endoscopy now as there is no active bleeding. 06/30: Renal function improving, patient remains positive for COVID. Tolerating tube feeding, wean off vent as tolerated. Patient remains with poor prognosis but 07/01: Remains intubated, continue to wean off as tolerated, continue antibiotic for Klebsiella pneumoniae. COVID-19 reordered on 06/29 and came as positive. ID following, pulmonary critical care following. Poor prognosis, family wants to continue full code. 07/05; patient has significant drop in H&H, hemoglobin today is 6.9, heme positive stool, type and cross transfuse 2 units of PRBC GI following, no plans of endoscopy 07/06; status post 2 units PRBC transfusion yesterday, Hb improved to 7.7. Monitor H&H transfuse additional PRBC as needed Remains intubated on vent, wean as tolerated and extubate 07/07; Hb dropped to 7.7-6.8, no new episodes of bleeding, transfuse additional 1 unit PRBC today Closely monitor H&H, worsening renal function, hyperkalemia, calcium chloride Kayexalate, gentle hydration, reconsult nephrology 07/08: Patient not tolerating weaning parameters, if unable to wean may need trach and PEG, patient critically ill poor prognosis 07/09; patient remains intubated, trial of CPAP, will closely monitor wean as tolerated and extubate, 07/10: Remains intubated, wean as tolerated and extubate, if unable to wean may need trach and PEG 07/11/2020. Patient currently on mechanical ventilation AC/PRVC with rate of 12, tidal volume 450, FiO2 30% and PEEP of 6 07/12/2020. Patient placed on CPAP with pressure support of 10 and tolerating well. Continue PSB trials as tolerated. 07/13/2020. Patient currently with AC mode rate 12, tidal volume 450, FiO2 30% and PEEP of 6. Surgery has been consulted for trach and PEG placement. Recall nephrology for renal insufficiency. 07/14/20; surgery evaluated for trach and PEG , pending call with test which is is positive today COVID-19 test positive x3 since admission 07/16; trach and PEG pending neuro evaluation 07/17; vent dependent, trach PEG pending neuro evaluation, pending MRI EEG study[already ordered] 07/18; unable to do MRI, due to body habitus, morbid obesity, radiology consult Patient critically ill very poor prognosis 07/19; remains intubated on vent, clinically no change 07/20; unable to wean, needs trach and PEG, need MRI , unable to do due to body habitus 07/21; clinically no change, remains intubated on ventilatory support 07/22; I recommend family meeting, to discuss the goals of treatment, discussed with case management 07/23; patient's blood pressures in the lower range, will hold antihypertensives, fluid bolus, if no improvement Levophed per protocol 07/24: Patient remains critically ill, unable to obtain MRI at this facility and unstable for transfer, Will reconsult Nephrology as creatinine now worse, with worsening Hypotension and Hyperkalemia- Overnight the patient required pressors Secondary to Hypotension, Will place PICC line. Will give kayxalate, continue to hold all BP meds. Hyponatermia improving. 07/24; patient remains to critically ill, nephrology consult appreciated, creatinine is worsening. Hypotension resolved with. Still patient is hypernatremic 07/26; patient is hypertensive and her blood pressure medications were resumed and as needed medications also started. Patient is being followed by nephrology for hyponatremia and AVANI. Patient has anemia. We will check labs in the [facility]. 07/27; patient is still intubated and on mechanical ventilation. Followed by pulmonary critical care. Nephrology is considering to dialyze the patient after discussing with the family. 07/28; patient is intubated and on mechanical ventilation, patient is nonresponsive without pressors. Creatinine is trending up and nephrology is considering to dialysis. I called her son Toño at [phone] and discussed about the prognosis of the patient and I gave the option of hospice care/withdraw care and he said he is going to talk to his sister and will get back to me. 07/29/2020;patient is intubated and on mechanical ventilation, patient is nonresponsive without pressors. Creatinine is trending up and nephrology is considering to dialysis. I called her son Toño on 07/28 at [phone] and discussed about the prognosis of the patient and I gave the option of hospice care/withdraw care and he said he is going to talk to his sister and will get back to me. Nephrology discussed with the son this morning and the son said he want aggressive management and she is going to be started on dialysis. 07/30; patient's son wants hospice. Declined dialysis. 07/31; plan was to send the patient to hospice but her son does not want to sign AND. Family declined dialysis. Going to talk to the son. 08/01; plans to send the patient to hospice. Patient does not want to sign AND. We called him back but he did not answer. 08/02 intubated, unresponsive, all interdisciplinary notes reviewed, apparently patient's family opted for dialysis, all interdisciplinary notes reviewed 08/03 remains intubated, unresponsive, status post right femoral vein vascular catheter placement, scheduled for hemodialysis today, lab results reviewed. Patient's NG tube feedings are on hold as the patient apparently developed emesis with questionable fecal odor. Patient is now on NG tube to low intermittent suction. 08/04: TF on hold. CT abdomen/pelvis yesterday showed no obstruction, cont to monitor. follow BMP, HD as needed 08/05: plan to resume TF, discussed with nephrology - plan to continue HD temporarily. cont to monitor BMP. patient remains unresponsive, family wish to continue aggressive care and full code status 08/06: started on TF at low rate, cont supportive care. CM to arrange family meeting to address goal of care with family. 08/07: discussed with daughter and son in a family meeting with nephrology, CM, RN and data integration architect. patient has very poor prognosis and recommended hospice by nephrology and by me, family will discuss the option for hospice among themselves again. cont supportive care for now. 08/08: order CT head today. tolerating TF. continue supportive care. wean off vent as tolerated. family still didnot decided for hospice. 08/09: cont supportive care. CT head w/o acute change but chronic white mater disease. waiting on family decision for hospice 08/10: family was in the unit. patient's daughter signed the DNR paper and wants to proceed with home hospice. discussed with CC attending and in agreement with the goal of care and discharge planning. CM referred for home hospice. Subjective Date of service: 08/10/20 Principal diagnosis: Ac hypoxemic resp failure; COVID-19; pneumonia; CHF; Pulm HTN; OHS; DM II Interval history: Patient seen and examined Vitals reviewed, intubated, remains unresponsive Discussed with RN at the bedside Family signed DNR paper and wants to proceed with hospice Objective - Exam Narrative Exam: General appearance: Present: obese (Morbidly obese), other (intubated) - EENT Eyes: No congestion or icterus - Neck Neck: Present: supple, normal ROM - Respiratory Respiratory effort: normal Respiratory: bilateral: diminished, rhonchi, negative: rales, wheezing - Cardiovascular Rhythm: regular Heart Sounds: Present: S1 & S2 - Extremities Extremities: no ischemia, No edema - Abdominal General gastrointestinal: soft, non-tender, obese, normal bowel sounds - Integumentary Integumentary: Present: clear, warm - Psychiatric Psychiatric: other (intubated) - Neurologic Neurologic: other (intubated), unresponsive - Constitutional Vitals: Vital Signs - 12hr 08/10/20 08/10/20 08/10/20 04:45 05:00 05:15 Pulse Rate 74 75 76 Respiratory 16 17 19 Rate Blood Pressure 131/46 131/46 132/46 O2 Sat by Pulse 99 98 99 Oximetry 08/10/20 08/10/20 08/10/20 05:31 05:45 06:01 Pulse Rate 73 73 74 Respiratory 16 14 18 Rate Blood Pressure 132/46 132/46 126/46 O2 Sat by Pulse 99 99 99 Oximetry 08/10/20 08/10/20 08/10/20 06:15 06:31 08:50 Pulse Rate 73 73 85 Respiratory 17 18 Rate Blood Pressure 126/46 126/46 123/49 O2 Sat by Pulse 99 99 99 Oximetry 08/10/20 08/10/20 08/10/20 09:00 12:30 15:58 Pulse Rate 77 79 76 Respiratory 24 19 31 H Rate Blood Pressure 123/49 132/58 O2 Sat by Pulse 98 97 97 Oximetry - Labs CBC & Chem 7: 08/11/20 03:55 08/11/20 03:55 HEART Score - HEART Score Troponin: Troponin T 0.067 ng/mL (0.00-0.029) H 07/01/20 06:01
[2020-08-10] MEDS: hydrALAZINE 100 MG TAB PO SCH (20:42)
[2020-08-10] MEDS: GLYCOPYRROLATE 2 MG TAB PO SCH (20:54)
[2020-08-10] MEDS: LIPASE 10,500/PROTEASE 25,000/AMYLASE 43,750 (UNITS) DR CAP FEEDTUBE PRN (22:45)
[2020-08-10] MEDS: INSULIN GLARGINE 100 UNITS/ML SUB-Q SCH (22:46)
[2020-08-11] MEDS: INSULIN LISPRO 100 UNIT/ML VIAL 3 mL SUB-Q SCH ×4 (00:37→18:40)
--- NOTE | 2020-08-11 03:34 | XRay Report ---
Abdomen single view INDICATION: Abdominal pain IMPRESSION: Esophagogastric tube terminates in the region of the mid stomach. Signer Name: Doyle Burrell MD Signed: 08/11/2020 3:29 AM Workstation Name: [id number]
[2020-08-11 05:12] LABS: Basophils # (Auto) 0.1 K/mm3 (0.0-0.1); Basophils % (Auto) 0.7 % (0.0-1.8); Eosinophils # (Auto) 0.2 K/mm3 (0.0-0.4); Hematocrit 20.1 % (30.3-42.9); Hemoglobin 6.9 gm/dl (10.1-14.3); Lymphocytes # (Auto) 0.8 K/mm3 (1.2-5.4); Lymphocytes % (Auto) 11.2 % (13.4-35.0); Mean Corpuscular HGB Conc 34 % (30-34); Mean Corpuscular Volume 90 fl (79-97); Monocytes # (Auto) 0.6 K/mm3 (0.0-0.8); Monocytes % (Auto) 8.8 % (0.0-7.3); Platelet Count 300 K/mm3 (140-440); Red Blood Count 2.22 M/mm3 (3.65-5.03); Red Cell Distribution Width 18.3 % (13.2-15.2)
[2020-08-11 05:18] LABS: Calcium 7.5 mg/dL (8.4-10.2)
[2020-08-11] MEDS ORDERED: DEXTROSE 50% IN WATER (25GM) 50 ML SYRINGE IV ONE ×2 (05:29→06:06)
[2020-08-11] MEDS: HEPARIN 5,000 UNIT/1 ML VIAL SUB-Q SCH ×3 (06:40→21:25)
[2020-08-11] MEDS: SODIUM CHLORIDE 0.9% IV SCH ×5 (06:41→21:26)
[2020-08-11] MEDS: PHENYTOIN IV SCH ×5 (06:41→21:26)
[2020-08-11] MEDS: FUROSEMIDE 40 MG/4 ML INJ IV SCH ×2 (06:44→18:43)
[2020-08-11] MEDS: levETIRAcetam 500 MG/5 ML ORAL LIQD PO SCH ×2 (06:54→21:25)
[2020-08-11] MEDS: MINOXIDIL 2.5 MG TAB PO SCH ×4 (06:55→22:44)
[2020-08-11] MEDS: SENNOSIDES ORAL LIQD 8.8 MG/5 ML ORAL LIQD FEEDTUBE SCH ×3 (06:56→23:43)
--- NOTE | 2020-08-11 08:32 | Progress Note ---
Assessment and Plan Acute hypoxemic respiratory failure on MVS Coronavirus-19 infection. Bilateral pulmonary infiltrates, bilateral pneumonia plus likely element of Pulmonary edema. Bilateral pulmonary edema. Bilateral pleural effusions. History of congestive heart failure. Morbid obesity. History of pulmonary hypertension. History of hypertension. Diabetes. Obesity hypoventilation syndrome. Elevated serum inflammatory markers to include D-dimers and LDH levels. Hyperkalemia at presentation. Metabolic acidosis. Oropharyngeal dysphagia. (AMS remains rate limiting factor to safe extubation; she will need a tracheo stomy if continued care desired) - Hospice company unable to reach family and declined thereafter - continue to rest on AC qhs - prn vasopressors for target MAP > 65 mmHg - continue care as below otherwise; - prn CXR's and ABG's at this point - repeat EEG next per neurology rec's (repeat CT brain negative) - AED's per neurology ([facility]) - surgery evaluation ongoing for trach +/- PEG (await negative COVID PCR result) - continue Modafinil re: lethargy / somnolence - continue daytime PSV trials as tolerated - Daily SAT and SBT assessment as tolerated - continue to wean supplemental oxygen for target O2 sat's > 92% acutely - VAP bundle addressed - continue lung protective strategies - continue bronchodilators with pulmonary hygiene per RT - wean per pulmonary driven protocols otherwise - continue accuchecks resumed with glycemic control per SSI (While critically ill target blood glucose of 140-180 mg/dL; avoid hypoglycemia) - sedation prn for target RASS 0 to -1 - continue to avoid benzodiazepine's, reduce the possibility of delirium - AB's per ID rec's (following clinically of AB's at this time) - continue enteral nutrition at goal rate as tolerated - AED's per neurology - prn analgesia per CPOT score - Maintenance of sleep-wake cycle, avoid delirium - continue enteral nutritional support at goal rate as tolerated - G.I. & VTE prophylaxis with heparin & famotidine - PT/OT/ROM exercises - continue mobility protocols for pressure ulcer prophylaxis - Monitor hemodynamics closely - continue other care per attending / other consultants - discharge planning ongoing concurrently (LTAC evaluation is appropriate) .... Re-evaluate in am & prn; will continue aggressive care until clear family wants to decelerate CONDITION: CRITICAL PROGNOSIS: GUARDED CODE STATUS: FULL CODE The high probability of a clinically significant, sudden or life-threatening deterioration of the [respiratory, cardiovascular, GI & neurologic] system(s) required my full and direct attention, intervention and personal management. The aggregate critical care time was [35] minutes without overlap. Time includes spent on; [x] Data Review and interpretation [x] Patient assessment and monitoring of vital signs [x] Documentation [x] Medication orders and management Subjective Date of service: 08/11/20 Principal diagnosis: Ac hypoxemic resp failure; COVID-19; pneumonia; CHF; Pulm HTN; OHS; DM II Interval history: Patient is seen today for: Ac hypoxemic resp failure; Coronavirus-19 infection; pneumonia; Pulmonary edema; Bilateral pleural effusions; CHF; Morbid obesity; pulmonary hypertension; OHS; DM II Seen and examined at bedside; 24hour events reviewed; nursing and respiratory care staff consulted; no adverse overnight events reported to me; resting peacefully in bed; remains on MVS; AMS is persistent; tolerating SBT; remains off vasopressors; afebrile Objective Vital Signs - 12hr 08/10/20 08/10/20 08/10/20 20:46 21:00 21:16 Temperature Pulse Rate 74 73 72 Respiratory 13 14 13 Rate Blood Pressure 129/49 129/49 127/47 O2 Sat by Pulse 98 98 98 Oximetry 08/10/20 08/10/20 08/10/20 21:30 21:46 22:00 Temperature Pulse Rate 71 72 73 Respiratory 13 12 9 L Rate Blood Pressure 127/47 122/47 122/47 O2 Sat by Pulse 97 98 97 Oximetry 08/10/20 08/10/20 08/10/20 22:16 22:30 22:46 Temperature Pulse Rate 72 72 73 Respiratory 16 15 16 Rate Blood Pressure 128/45 128/45 137/51 O2 Sat by Pulse 98 97 98 Oximetry 08/10/20 08/10/20 08/10/20 23:00 23:16 23:30 Temperature Pulse Rate 74 69 71 Respiratory 12 17 17 Rate Blood Pressure 137/51 140/48 140/48 O2 Sat by Pulse 98 98 98 Oximetry 08/10/20 08/10/20 08/11/20 23:46 23:47 00:00 Temperature 98.9 F Pulse Rate 71 70 72 Respiratory 17 15 Rate Blood Pressure 125/47 125/47 125/47 O2 Sat by Pulse 98 98 98 Oximetry 08/11/20 08/11/20 08/11/20 00:16 00:30 00:46 Temperature Pulse Rate 72 70 72 Respiratory 17 16 12 Rate Blood Pressure 128/53 128/53 128/53 O2 Sat by Pulse 99 99 98 Oximetry 08/11/20 08/11/20 08/11/20 01:00 01:16 01:30 Temperature Pulse Rate 73 72 71 Respiratory 12 14 16 Rate Blood Pressure 128/53 126/49 128/53 O2 Sat by Pulse 98 98 99 Oximetry 08/11/20 08/11/20 08/11/20 01:46 02:00 02:16 Temperature Pulse Rate 72 72 76 Respiratory 14 18 14 Rate Blood Pressure 134/51 134/51 125/53 O2 Sat by Pulse 98 99 85 Oximetry 08/11/20 08/11/20 08/11/20 02:30 02:46 03:00 Temperature Pulse Rate 71 70 71 Respiratory 16 16 17 Rate Blood Pressure 125/53 125/50 125/50 O2 Sat by Pulse 98 98 97 Oximetry 08/11/20 08/11/20 08/11/20 03:16 03:30 03:42 Temperature 98.6 F Pulse Rate 71 70 Respiratory 17 17 Rate Blood Pressure 131/79 131/79 O2 Sat by Pulse 99 98 Oximetry 08/11/20 08/11/20 08/11/20 03:46 04:00 04:16 Temperature Pulse Rate 72 71 70 Respiratory 18 18 16 Rate Blood Pressure 121/54 121/54 121/54 O2 Sat by Pulse 98 98 99 Oximetry 08/11/20 08/11/20 08/11/20 04:30 04:46 04:47 Temperature Pulse Rate 70 70 70 Respiratory 19 19 Rate Blood Pressure 121/54 124/48 124/48 O2 Sat by Pulse 99 99 98 Oximetry 08/11/20 08/11/20 08/11/20 05:00 05:16 05:30 Temperature Pulse Rate 71 71 73 Respiratory 21 18 17 Rate Blood Pressure 124/48 129/48 129/48 O2 Sat by Pulse 99 99 99 Oximetry 08/11/20 08/11/20 08/11/20 05:46 06:00 06:16 Temperature Pulse Rate 72 73 73 Respiratory 13 19 21 Rate Blood Pressure 134/57 134/57 134/53 O2 Sat by Pulse 98 98 98 Oximetry 08/11/20 08/11/20 06:30 07:30 Temperature Pulse Rate 76 76 Respiratory 19 25 H Rate Blood Pressure 134/53 134/53 O2 Sat by Pulse 98 98 Oximetry Constitutional: appears uncomfortable, other (elderly looking female with mildly increased resp effort at rest) Eyes: non-icteric ENT: oropharynx moist, other (ETT 23-24 cm AYAN) Neck: supple, no lymphadenopathy, no JVD Effort: mildly labored Ascultation: Bilateral: diminished breath sounds, rhonchi Percussion: Bilateral: not dull Cardiovascular: regular rate and rhythm, other (S1,S2) Gastrointestinal: normoactive bowel sounds, soft, non-tender, non-distended Integumentary: rash, other (anasarca) Extremities: no cyanosis, pink and warm, pulses normal, no ischemia or petechiae, edema (pedal and peripheral ) Neurologic: unable to assess, other (lethargic to obtunded) Psychiatric: other (unable to assess re: AMS) CBC and BMP: 08/11/20 03:55 08/11/20 03:55 ABG, PT/INR, D-dimer: ABG ABG pH 7.344 pH Units (7.350-7.450) L 08/02/20 11:25 POC ABG pCO2 44.1 mmHg (32.0-48.0) 07/18/20 04:24 ABG pCO2 39.0 mm Hg 08/02/20 11:25 POC ABG pO2 86.8 mmHg (83-108) 07/18/20 04:24 ABG pO2 101.1 mm Hg (80.0-90.0) H 08/02/20 11:25 POC ABG HCO3 25.6 07/18/20 04:24 ABG O2 Saturation 97.5 % (95.0-99.0) 08/02/20 11:25 PT/INR, D-dimer PT 14.2 Sec. (12.2-14.9) 05/29/20 15:10 INR 1.08 (0.87-1.13) 05/29/20 15:10 D-Dimer 2310.15 ng/mlDDU (0-234) H 06/29/20 14:45 Abnormal lab findings: Abnormal Labs 05/28/20 05/28/20 05/28/20 13:29 13:47 13:47 WBC RBC Hgb Hct MCHC RDW 15.3 H Lymph % (Auto) [place] % (Auto) Eos % (Auto) Lymph # [place] # Lymph # (Auto) [place] # (Auto) Eos # (Auto) Seg Neutrophils % Seg Neuts % (Manual) Lymphocytes % (Manual) Seg Neutrophils # Seg Neutrophils # Man Lymphocytes # (Manual) Monocytes % (Manual) Eosinophils % (Manual) Monocytes # (Manual) Eosinophils # (Manual) D-Dimer Heparin Anti-Xa Level ABG pH POC ABG pCO2 POC ABG pO2 ABG pO2 ABG HCO3 ABG O2 Saturation ABG Base Excess ABG Hemoglobin ABG Oxyhemoglobin VBG pH ABG Sodium ABG Potassium ABG Glucose Oxyhemoglobin Sodium Potassium 6.6 H* Chloride 109.2 H Carbon Dioxide 17 L BUN 29 H Creatinine 1.3 H Glucose 265 H POC Glucose 248 H Lactic Acid Calcium 8.1 L Ferritin AST 63 H Alkaline Phosphatase Magnesium Lactate Dehydrogenase Total Creatine Kinase 301 H CK-MB (CK-2) 4.3 H C-Reactive Protein Total Protein 5.4 L Albumin 2.6 L Troponin T HDL Cholesterol Arterial Blood Glucose Urine WBC (Auto) Urine Creatinine Urine Total Protein Phenytoin Coronavirus (PCR) Crossmatch 05/28/20 05/28/20 05/28/20 13:47 13:47 14:46 WBC RBC Hgb Hct MCHC RDW Lymph % (Auto) [place] % (Auto) Eos % (Auto) Lymph # [place] # Lymph # (Auto) [place] # (Auto) Eos # (Auto) Seg Neutrophils % Seg Neuts % (Manual) Lymphocytes % (Manual) Seg Neutrophils # Seg Neutrophils # Man Lymphocytes # (Manual) Monocytes % (Manual) Eosinophils % (Manual) Monocytes # (Manual) Eosinophils # (Manual) D-Dimer Heparin Anti-Xa Level ABG pH POC ABG pCO2 POC ABG pO2 ABG pO2 ABG HCO3 ABG O2 Saturation ABG Base Excess ABG Hemoglobin ABG Oxyhemoglobin VBG pH 7.152 L* ABG Sodium ABG Potassium ABG Glucose Oxyhemoglobin Sodium Potassium 7.2 H* Chloride Carbon Dioxide BUN Creatinine Glucose POC Glucose Lactic Acid 3.40 H* Calcium Ferritin AST Alkaline Phosphatase Magnesium Lactate Dehydrogenase Total Creatine Kinase CK-MB (CK-2) C-Reactive Protein Total Protein Albumin Troponin T HDL Cholesterol Arterial Blood Glucose Urine WBC (Auto) Urine Creatinine Urine Total Protein Phenytoin Coronavirus (PCR) Crossmatch 05/28/20 05/28/20 05/28/20 15:33 15:33 15:51 WBC RBC Hgb Hct MCHC RDW Lymph % (Auto) [place] % (Auto) Eos % (Auto) Lymph # [place] # Lymph # (Auto) [place] # (Auto) Eos # (Auto) Seg Neutrophils % Seg Neuts % (Manual) Lymphocytes % (Manual) Seg Neutrophils # Seg Neutrophils # Man Lymphocytes # (Manual) Monocytes % (Manual) Eosinophils % (Manual) Monocytes # (Manual) Eosinophils # (Manual) D-Dimer 8780.43 H Heparin Anti-Xa Level ABG pH 7.284 L POC ABG pCO2 POC ABG pO2 ABG pO2 273.0 H ABG HCO3 ABG O2 Saturation 99.4 H ABG Base Excess -6.1 L ABG Hemoglobin 17.2 H ABG Oxyhemoglobin VBG pH ABG Sodium ABG Potassium ABG Glucose Oxyhemoglobin Sodium Potassium Chloride Carbon Dioxide BUN Creatinine Glucose 152 H POC Glucose Lactic Acid Calcium Ferritin AST Alkaline Phosphatase Magnesium Lactate Dehydrogenase 365 H Total Creatine Kinase CK-MB (CK-2) C-Reactive Protein Total Protein Albumin Troponin T HDL Cholesterol Arterial Blood Glucose Urine WBC (Auto) Urine Creatinine Urine Total Protein Phenytoin Coronavirus (PCR) Crossmatch 05/28/20 05/28/20 05/28/20 16:30 20:41 23:20 WBC RBC Hgb Hct MCHC RDW Lymph % (Auto) [place] % (Auto) Eos % (Auto) Lymph # [place] # Lymph # (Auto) [place] # (Auto) Eos # (Auto) Seg Neutrophils % Seg Neuts % (Manual) Lymphocytes % (Manual) Seg Neutrophils # Seg Neutrophils # Man Lymphocytes # (Manual) Monocytes % (Manual) Eosinophils % (Manual) Monocytes # (Manual) Eosinophils # (Manual) D-Dimer Heparin Anti-Xa Level ABG pH POC ABG pCO2 POC ABG pO2 ABG pO2 ABG HCO3 ABG O2 Saturation ABG Base Excess ABG Hemoglobin ABG Oxyhemoglobin VBG pH ABG Sodium ABG Potassium ABG Glucose Oxyhemoglobin Sodium Potassium Chloride Carbon Dioxide BUN Creatinine Glucose POC Glucose 225 H 224 H Lactic Acid Calcium Ferritin AST Alkaline Phosphatase Magnesium Lactate Dehydrogenase Total Creatine Kinase CK-MB (CK-2) C-Reactive Protein Total Protein Albumin Troponin T HDL Cholesterol Arterial Blood Glucose Urine WBC (Auto) 17.0 H Urine Creatinine Urine Total Protein Phenytoin Coronavirus (PCR) Crossmatch 05/28/20 05/29/20 05/29/20 Unknown 04:35 04:43 WBC RBC 3.48 L Hgb 9.8 L Hct 29.4 L MCHC RDW 16.0 H Lymph % (Auto) 7.4 L [place] % (Auto) Eos % (Auto) Lymph # 0.7 L [place] # Lymph # (Auto) [place] # (Auto) Eos # (Auto) Seg Neutrophils % 89.1 H Seg Neuts % (Manual) Lymphocytes % (Manual) Seg Neutrophils # 8.1 H Seg Neutrophils # Man Lymphocytes # (Manual) Monocytes % (Manual) Eosinophils % (Manual) Monocytes # (Manual) Eosinophils # (Manual) D-Dimer Heparin Anti-Xa Level ABG pH POC ABG pCO2 POC ABG pO2 ABG pO2 ABG HCO3 19.3 L ABG O2 Saturation ABG Base Excess -4.5 L ABG Hemoglobin 9.7 L ABG Oxyhemoglobin VBG pH ABG Sodium ABG Potassium ABG Glucose Oxyhemoglobin Sodium Potassium Chloride Carbon Dioxide BUN Creatinine Glucose POC Glucose Lactic Acid Calcium Ferritin AST Alkaline Phosphatase Magnesium Lactate Dehydrogenase Total Creatine Kinase CK-MB (CK-2) C-Reactive Protein Total Protein Albumin Troponin T HDL Cholesterol Arterial Blood Glucose Urine WBC (Auto) Urine Creatinine Urine Total Protein Phenytoin Coronavirus (PCR) Positive A Crossmatch 05/29/20 05/29/20 05/29/20 04:43 15:10 17:17 WBC RBC Hgb 9.3 L Hct 28.7 L MCHC RDW Lymph % (Auto) [place] % (Auto) Eos % (Auto) Lymph # [place] # Lymph # (Auto) [place] # (Auto) Eos # (Auto) Seg Neutrophils % Seg Neuts % (Manual) Lymphocytes % (Manual) Seg Neutrophils # Seg Neutrophils # Man Lymphocytes # (Manual) Monocytes % (Manual) Eosinophils % (Manual) Monocytes # (Manual) Eosinophils # (Manual) D-Dimer Heparin Anti-Xa Level ABG pH POC ABG pCO2 POC ABG pO2 ABG pO2 ABG HCO3 ABG O2 Saturation ABG Base Excess ABG Hemoglobin ABG Oxyhemoglobin VBG pH ABG Sodium ABG Potassium ABG Glucose Oxyhemoglobin Sodium Potassium Chloride 110.2 H Carbon Dioxide 18 L BUN 32 H Creatinine 1.4 H Glucose 180 H POC Glucose 147 H Lactic Acid Calcium Ferritin AST Alkaline Phosphatase Magnesium Lactate Dehydrogenase Total Creatine Kinase CK-MB (CK-2) C-Reactive Protein Total Protein Albumin Troponin T HDL Cholesterol Arterial Blood Glucose Urine WBC (Auto) Urine Creatinine Urine Total Protein Phenytoin Coronavirus (PCR) Crossmatch 05/30/20 05/30/20 05/30/20 00:08 00:12 04:15 WBC RBC Hgb Hct MCHC RDW Lymph % (Auto) [place] % (Auto) Eos % (Auto) Lymph # [place] # Lymph # (Auto) [place] # (Auto) Eos # (Auto) Seg Neutrophils % Seg Neuts % (Manual) Lymphocytes % (Manual) Seg Neutrophils # Seg Neutrophils # Man Lymphocytes # (Manual) Monocytes % (Manual) Eosinophils % (Manual) Monocytes # (Manual) Eosinophils # (Manual) D-Dimer Heparin Anti-Xa Level 0.71 H ABG pH 7.460 H POC ABG pCO2 POC ABG pO2 ABG pO2 106.0 H ABG HCO3 18.9 L ABG O2 Saturation ABG Base Excess -4.4 L ABG Hemoglobin 6.8 L ABG Oxyhemoglobin VBG pH ABG Sodium ABG Potassium ABG Glucose Oxyhemoglobin Sodium Potassium Chloride Carbon Dioxide BUN Creatinine Glucose POC Glucose 195 H Lactic Acid Calcium Ferritin AST Alkaline Phosphatase Magnesium Lactate Dehydrogenase Total Creatine Kinase CK-MB (CK-2) C-Reactive Protein Total Protein Albumin Troponin T HDL Cholesterol Arterial Blood Glucose Urine WBC (Auto) Urine Creatinine Urine Total Protein Phenytoin Coronavirus (PCR) Crossmatch 05/30/20 05/30/20 05/30/20 06:07 08:37 12:33 WBC RBC Hgb Hct MCHC RDW Lymph % (Auto) [place] % (Auto) Eos % (Auto) Lymph # [place] # Lymph # (Auto) [place] # (Auto) Eos # (Auto) Seg Neutrophils % Seg Neuts % (Manual) Lymphocytes % (Manual) Seg Neutrophils # Seg Neutrophils # Man Lymphocytes # (Manual) Monocytes % (Manual) Eosinophils % (Manual) Monocytes # (Manual) Eosinophils # (Manual) D-Dimer Heparin Anti-Xa Level 0.85 H ABG pH POC ABG pCO2 POC ABG pO2 ABG pO2 ABG HCO3 ABG O2 Saturation ABG Base Excess ABG Hemoglobin ABG Oxyhemoglobin VBG pH ABG Sodium ABG Potassium ABG Glucose Oxyhemoglobin Sodium Potassium Chloride Carbon Dioxide BUN Creatinine Glucose POC Glucose 182 H 187 H Lactic Acid Calcium Ferritin AST Alkaline Phosphatase Magnesium Lactate Dehydrogenase Total Creatine Kinase CK-MB (CK-2) C-Reactive Protein Total Protein Albumin Troponin T HDL Cholesterol Arterial Blood Glucose Urine WBC (Auto) Urine Creatinine Urine Total Protein Phenytoin Coronavirus (PCR) Crossmatch 05/30/20 05/30/20 05/30/20 15:58 17:57 23:36 WBC RBC Hgb Hct MCHC RDW Lymph % (Auto) [place] % (Auto) Eos % (Auto) Lymph # [place] # Lymph # (Auto) [place] # (Auto) Eos # (Auto) Seg Neutrophils % Seg Neuts % (Manual) Lymphocytes % (Manual) Seg Neutrophils # Seg Neutrophils # Man Lymphocytes # (Manual) Monocytes % (Manual) Eosinophils % (Manual) Monocytes # (Manual) Eosinophils # (Manual) D-Dimer Heparin Anti-Xa Level 1.03 H ABG pH POC ABG pCO2 POC ABG pO2 ABG pO2 ABG HCO3 ABG O2 Saturation ABG Base Excess ABG Hemoglobin ABG Oxyhemoglobin VBG pH ABG Sodium ABG Potassium ABG Glucose Oxyhemoglobin Sodium Potassium Chloride Carbon Dioxide BUN Creatinine Glucose POC Glucose 208 H 185 H Lactic Acid Calcium Ferritin AST Alkaline Phosphatase Magnesium Lactate Dehydrogenase Total Creatine Kinase CK-MB (CK-2) C-Reactive Protein Total Protein Albumin Troponin T HDL Cholesterol Arterial Blood Glucose Urine WBC (Auto) Urine Creatinine Urine Total Protein Phenytoin Coronavirus (PCR) Crossmatch 05/31/20 05/31/20 05/31/20 02:16 03:55 06:16 WBC RBC Hgb 9.2 L Hct 27.5 L MCHC RDW Lymph % (Auto) [place] % (Auto) Eos % (Auto) Lymph # [place] # Lymph # (Auto) [place] # (Auto) Eos # (Auto) Seg Neutrophils % Seg Neuts % (Manual) Lymphocytes % (Manual) Seg Neutrophils # Seg Neutrophils # Man Lymphocytes # (Manual) Monocytes % (Manual) Eosinophils % (Manual) Monocytes # (Manual) Eosinophils # (Manual) D-Dimer Heparin Anti-Xa Level ABG pH POC ABG pCO2 POC ABG pO2 ABG pO2 94.7 H ABG HCO3 18.6 L ABG O2 Saturation ABG Base Excess -5.5 L ABG Hemoglobin 7.9 L ABG Oxyhemoglobin VBG pH ABG Sodium ABG Potassium ABG Glucose Oxyhemoglobin Sodium Potassium Chloride Carbon Dioxide BUN Creatinine Glucose POC Glucose 160 H Lactic Acid Calcium Ferritin AST Alkaline Phosphatase Magnesium Lactate Dehydrogenase Total Creatine Kinase CK-MB (CK-2) C-Reactive Protein Total Protein Albumin Troponin T HDL Cholesterol Arterial Blood Glucose Urine WBC (Auto) Urine Creatinine Urine Total Protein Phenytoin Coronavirus (PCR) Crossmatch 05/31/20 05/31/20 05/31/20 12:20 13:03 18:13 WBC RBC Hgb Hct MCHC RDW Lymph % (Auto) [place] % (Auto) Eos % (Auto) Lymph # [place] # Lymph # (Auto) [place] # (Auto) Eos # (Auto) Seg Neutrophils % Seg Neuts % (Manual) Lymphocytes % (Manual) Seg Neutrophils # Seg Neutrophils # Man Lymphocytes # (Manual) Monocytes % (Manual) Eosinophils % (Manual) Monocytes # (Manual) Eosinophils # (Manual) D-Dimer Heparin Anti-Xa Level ABG pH POC ABG pCO2 POC ABG pO2 ABG pO2 ABG HCO3 ABG O2 Saturation ABG Base Excess ABG Hemoglobin ABG Oxyhemoglobin VBG pH ABG Sodium ABG Potassium ABG Glucose Oxyhemoglobin Sodium Potassium Chloride Carbon Dioxide 18 L BUN 48 H Creatinine 1.6 H Glucose 115 H POC Glucose 128 H 159 H Lactic Acid Calcium 8.3 L Ferritin AST Alkaline Phosphatase Magnesium Lactate Dehydrogenase Total Creatine Kinase CK-MB (CK-2) C-Reactive Protein Total Protein 5.4 L Albumin 2.4 L Troponin T HDL Cholesterol Arterial Blood Glucose Urine WBC (Auto) Urine Creatinine Urine Total Protein Phenytoin Coronavirus (PCR) Crossmatch 05/31/20 06/01/20 06/01/20 23:51 04:00 05:48 WBC RBC Hgb Hct MCHC RDW Lymph % (Auto) [place] % (Auto) Eos % (Auto) Lymph # [place] # Lymph # (Auto) [place] # (Auto) Eos # (Auto) Seg Neutrophils % Seg Neuts % (Manual) Lymphocytes % (Manual) Seg Neutrophils # Seg Neutrophils # Man Lymphocytes # (Manual) Monocytes % (Manual) Eosinophils % (Manual) Monocytes # (Manual) Eosinophils # (Manual) D-Dimer Heparin Anti-Xa Level ABG pH POC ABG pCO2 POC ABG pO2 ABG pO2 109.8 H ABG HCO3 18.8 L ABG O2 Saturation ABG Base Excess -5.9 L ABG Hemoglobin 7.8 L ABG Oxyhemoglobin VBG pH ABG Sodium ABG Potassium ABG Glucose Oxyhemoglobin Sodium Potassium Chloride Carbon Dioxide BUN Creatinine Glucose POC Glucose 171 H 133 H Lactic Acid Calcium Ferritin AST Alkaline Phosphatase Magnesium Lactate Dehydrogenase Total Creatine Kinase CK-MB (CK-2) C-Reactive Protein Total Protein Albumin Troponin T HDL Cholesterol Arterial Blood Glucose Urine WBC (Auto) Urine Creatinine Urine Total Protein Phenytoin Coronavirus (PCR) Crossmatch 06/01/20 06/01/20 06/02/20 12:28 17:29 00:08 WBC RBC Hgb Hct MCHC RDW Lymph % (Auto) [place] % (Auto) Eos % (Auto) Lymph # [place] # Lymph # (Auto) [place] # (Auto) Eos # (Auto) Seg Neutrophils % Seg Neuts % (Manual) Lymphocytes % (Manual) Seg Neutrophils # Seg Neutrophils # Man Lymphocytes # (Manual) Monocytes % (Manual) Eosinophils % (Manual) Monocytes # (Manual) Eosinophils # (Manual) D-Dimer Heparin Anti-Xa Level ABG pH POC ABG pCO2 POC ABG pO2 ABG pO2 ABG HCO3 ABG O2 Saturation ABG Base Excess ABG Hemoglobin ABG Oxyhemoglobin VBG pH ABG Sodium ABG Potassium ABG Glucose Oxyhemoglobin Sodium Potassium Chloride Carbon Dioxide BUN Creatinine Glucose POC Glucose 199 H 209 H 162 H Lactic Acid Calcium Ferritin AST Alkaline Phosphatase Magnesium Lactate Dehydrogenase Total Creatine Kinase CK-MB (CK-2) C-Reactive Protein Total Protein Albumin Troponin T HDL Cholesterol Arterial Blood Glucose Urine WBC (Auto) Urine Creatinine Urine Total Protein Phenytoin Coronavirus (PCR) Crossmatch 06/02/20 06/02/20 06/02/20 04:20 04:20 04:44 WBC RBC Hgb 10.0 L Hct MCHC RDW Lymph % (Auto) [place] % (Auto) Eos % (Auto) Lymph # [place] # Lymph # (Auto) [place] # (Auto) Eos # (Auto) Seg Neutrophils % Seg Neuts % (Manual) Lymphocytes % (Manual) Seg Neutrophils # Seg Neutrophils # Man Lymphocytes # (Manual) Monocytes % (Manual) Eosinophils % (Manual) Monocytes # (Manual) Eosinophils # (Manual) D-Dimer Heparin Anti-Xa Level 0.10 L ABG pH POC ABG pCO2 POC ABG pO2 ABG pO2 150.6 H ABG HCO3 ABG O2 Saturation ABG Base Excess -4.1 L ABG Hemoglobin 11.8 L ABG Oxyhemoglobin VBG pH ABG Sodium ABG Potassium ABG Glucose Oxyhemoglobin Sodium Potassium Chloride Carbon Dioxide BUN Creatinine Glucose POC Glucose Lactic Acid Calcium Ferritin AST Alkaline Phosphatase Magnesium Lactate Dehydrogenase Total Creatine Kinase CK-MB (CK-2) C-Reactive Protein Total Protein Albumin Troponin T HDL Cholesterol Arterial Blood Glucose Urine WBC (Auto) Urine Creatinine Urine Total Protein Phenytoin Coronavirus (PCR) Crossmatch 06/02/20 06/02/20 06/02/20 05:53 12:04 13:49 WBC RBC Hgb Hct MCHC RDW Lymph % (Auto) [place] % (Auto) Eos % (Auto) Lymph # [place] # Lymph # (Auto) [place] # (Auto) Eos # (Auto) Seg Neutrophils % Seg Neuts % (Manual) Lymphocytes % (Manual) Seg Neutrophils # Seg Neutrophils # Man Lymphocytes # (Manual) Monocytes % (Manual) Eosinophils % (Manual) Monocytes # (Manual) Eosinophils # (Manual) D-Dimer Heparin Anti-Xa Level 0.28 L ABG pH POC ABG pCO2 POC ABG pO2 ABG pO2 ABG HCO3 ABG O2 Saturation ABG Base Excess ABG Hemoglobin ABG Oxyhemoglobin VBG pH ABG Sodium ABG Potassium ABG Glucose Oxyhemoglobin Sodium Potassium Chloride Carbon Dioxide BUN Creatinine Glucose POC Glucose 149 H 220 H Lactic Acid Calcium Ferritin AST Alkaline Phosphatase Magnesium Lactate Dehydrogenase Total Creatine Kinase CK-MB (CK-2) C-Reactive Protein Total Protein Albumin Troponin T HDL Cholesterol Arterial Blood Glucose Urine WBC (Auto) Urine Creatinine Urine Total Protein Phenytoin Coronavirus (PCR) Crossmatch 06/02/20 06/02/20 06/03/20 13:49 18:31 00:42 WBC RBC Hgb Hct MCHC RDW Lymph % (Auto) [place] % (Auto) Eos % (Auto) Lymph # [place] # Lymph # (Auto) [place] # (Auto) Eos # (Auto) Seg Neutrophils % Seg Neuts % (Manual) Lymphocytes % (Manual) Seg Neutrophils # Seg Neutrophils # Man Lymphocytes # (Manual) Monocytes % (Manual) Eosinophils % (Manual) Monocytes # (Manual) Eosinophils # (Manual) D-Dimer 769.68 H Heparin Anti-Xa Level ABG pH POC ABG pCO2 POC ABG pO2 ABG pO2 ABG HCO3 ABG O2 Saturation ABG Base Excess ABG Hemoglobin ABG Oxyhemoglobin VBG pH ABG Sodium ABG Potassium ABG Glucose Oxyhemoglobin Sodium Potassium Chloride Carbon Dioxide BUN Creatinine Glucose POC Glucose 225 H 212 H Lactic Acid Calcium Ferritin AST Alkaline Phosphatase Magnesium Lactate Dehydrogenase Total Creatine Kinase CK-MB (CK-2) C-Reactive Protein Total Protein Albumin Troponin T HDL Cholesterol Arterial Blood Glucose Urine WBC (Auto) Urine Creatinine Urine Total Protein Phenytoin Coronavirus (PCR) Crossmatch 06/03/20 06/03/20 06/03/20 05:16 05:16 05:25 WBC 11.4 H RBC Hgb Hct MCHC RDW 16.4 H Lymph % (Auto) [place] % (Auto) Eos % (Auto) Lymph # [place] # Lymph # (Auto) [place] # (Auto) Eos # (Auto) Seg Neutrophils % Seg Neuts % (Manual) Lymphocytes % (Manual) Seg Neutrophils # Seg Neutrophils # Man Lymphocytes # (Manual) Monocytes % (Manual) Eosinophils % (Manual) Monocytes # (Manual) Eosinophils # (Manual) D-Dimer Heparin Anti-Xa Level ABG pH POC ABG pCO2 POC ABG pO2 ABG pO2 160.9 H ABG HCO3 19.4 L ABG O2 Saturation ABG Base Excess -4.9 L ABG Hemoglobin 7.0 L ABG Oxyhemoglobin VBG pH ABG Sodium ABG Potassium ABG Glucose Oxyhemoglobin Sodium Potassium Chloride Carbon Dioxide 18 L BUN 65 H Creatinine 2.0 H Glucose 175 H POC Glucose Lactic Acid Calcium 8.0 L Ferritin AST Alkaline Phosphatase Magnesium Lactate Dehydrogenase Total Creatine Kinase CK-MB (CK-2) C-Reactive Protein Total Protein 5.5 L Albumin 2.2 L Troponin T HDL Cholesterol Arterial Blood Glucose Urine WBC (Auto) Urine Creatinine Urine Total Protein Phenytoin Coronavirus (PCR) Crossmatch 06/03/20 06/03/20 06/03/20 06:07 11:58 18:24 WBC RBC Hgb Hct MCHC RDW Lymph % (Auto) [place] % (Auto) Eos % (Auto) Lymph # [place] # Lymph # (Auto) [place] # (Auto) Eos # (Auto) Seg Neutrophils % Seg Neuts % (Manual) Lymphocytes % (Manual) Seg Neutrophils # Seg Neutrophils # Man Lymphocytes # (Manual) Monocytes % (Manual) Eosinophils % (Manual) Monocytes # (Manual) Eosinophils # (Manual) D-Dimer Heparin Anti-Xa Level ABG pH POC ABG pCO2 POC ABG pO2 ABG pO2 ABG HCO3 ABG O2 Saturation ABG Base Excess ABG Hemoglobin ABG Oxyhemoglobin VBG pH ABG Sodium ABG Potassium ABG Glucose Oxyhemoglobin Sodium Potassium Chloride Carbon Dioxide BUN Creatinine Glucose POC Glucose 177 H 163 H 211 H Lactic Acid Calcium Ferritin AST Alkaline Phosphatase Magnesium Lactate Dehydrogenase Total Creatine Kinase CK-MB (CK-2) C-Reactive Protein Total Protein Albumin Troponin T HDL Cholesterol Arterial Blood Glucose Urine WBC (Auto) Urine Creatinine Urine Total Protein Phenytoin Coronavirus (PCR) Crossmatch 06/03/20 06/03/20 06/04/20 21:50 Unknown 00:26 WBC RBC Hgb Hct MCHC RDW Lymph % (Auto) [place] % (Auto) Eos % (Auto) Lymph # [place] # Lymph # (Auto) [place] # (Auto) Eos # (Auto) Seg Neutrophils % Seg Neuts % (Manual) Lymphocytes % (Manual) Seg Neutrophils # Seg Neutrophils # Man Lymphocytes # (Manual) Monocytes % (Manual) Eosinophils % (Manual) Monocytes # (Manual) Eosinophils # (Manual) D-Dimer Heparin Anti-Xa Level ABG pH POC ABG pCO2 POC ABG pO2 ABG pO2 ABG HCO3 ABG O2 Saturation ABG Base Excess ABG Hemoglobin ABG Oxyhemoglobin VBG pH ABG Sodium ABG Potassium ABG Glucose Oxyhemoglobin Sodium 135 L Potassium Chloride Carbon Dioxide 18 L BUN Creatinine Glucose POC Glucose 241 H Lactic Acid Calcium Ferritin AST Alkaline Phosphatase Magnesium Lactate Dehydrogenase Total Creatine Kinase CK-MB (CK-2) C-Reactive Protein Total Protein Albumin Troponin T HDL Cholesterol Arterial Blood Glucose Urine WBC (Auto) 11.0 H Urine Creatinine Urine Total Protein Phenytoin Coronavirus (PCR) Crossmatch 06/04/20 06/04/20 06/04/20 03:35 04:19 04:19 WBC RBC 3.15 L Hgb 8.9 L Hct 26.8 L D MCHC RDW 15.9 H Lymph % (Auto) 6.0 L [place] % (Auto) Eos % (Auto) Lymph # 0.6 L [place] # Lymph # (Auto) [place] # (Auto) Eos # (Auto) Seg Neutrophils % 86.6 H Seg Neuts % (Manual) Lymphocytes % (Manual) Seg Neutrophils # 9.1 H Seg Neutrophils # Man Lymphocytes # (Manual) Monocytes % (Manual) Eosinophils % (Manual) Monocytes # (Manual) Eosinophils # (Manual) D-Dimer Heparin Anti-Xa Level ABG pH 7.331 L POC ABG pCO2 POC ABG pO2 ABG pO2 ABG HCO3 ABG O2 Saturation ABG Base Excess -4.7 L ABG Hemoglobin 11.0 L ABG Oxyhemoglobin VBG pH ABG Sodium ABG Potassium ABG Glucose Oxyhemoglobin 93.9 L Sodium 136 L Potassium Chloride Carbon Dioxide 20 L BUN 73 H Creatinine 2.0 H Glucose 192 H POC Glucose Lactic Acid Calcium 8.0 L Ferritin AST Alkaline Phosphatase Magnesium Lactate Dehydrogenase 271 H Total Creatine Kinase CK-MB (CK-2) C-Reactive Protein 2.20 H Total Protein 5.0 L Albumin 2.0 L Troponin T HDL Cholesterol Arterial Blood Glucose Urine WBC (Auto) Urine Creatinine Urine Total Protein Phenytoin Coronavirus (PCR) Crossmatch 06/04/20 06/04/20 06/04/20 04:19 05:51 11:48 WBC RBC Hgb Hct MCHC RDW Lymph % (Auto) [place] % (Auto) Eos % (Auto) Lymph # [place] # Lymph # (Auto) [place] # (Auto) Eos # (Auto) Seg Neutrophils % Seg Neuts % (Manual) Lymphocytes % (Manual) Seg Neutrophils # Seg Neutrophils # Man Lymphocytes # (Manual) Monocytes % (Manual) Eosinophils % (Manual) Monocytes # (Manual) Eosinophils # (Manual) D-Dimer 414.52 H Heparin Anti-Xa Level ABG pH POC ABG pCO2 POC ABG pO2 ABG pO2 ABG HCO3 ABG O2 Saturation ABG Base Excess ABG Hemoglobin ABG Oxyhemoglobin VBG pH ABG Sodium ABG Potassium ABG Glucose Oxyhemoglobin Sodium Potassium Chloride Carbon Dioxide BUN Creatinine Glucose POC Glucose 179 H 213 H Lactic Acid Calcium Ferritin AST Alkaline Phosphatase Magnesium Lactate Dehydrogenase Total Creatine Kinase CK-MB (CK-2) C-Reactive Protein Total Protein Albumin Troponin T HDL Cholesterol Arterial Blood Glucose Urine WBC (Auto) Urine Creatinine Urine Total Protein Phenytoin Coronavirus (PCR) Crossmatch 06/04/20 06/05/20 06/05/20 18:25 00:16 05:00 WBC RBC Hgb Hct MCHC RDW Lymph % (Auto) [place] % (Auto) Eos % (Auto) Lymph # [place] # Lymph # (Auto) [place] # (Auto) Eos # (Auto) Seg Neutrophils % Seg Neuts % (Manual) Lymphocytes % (Manual) Seg Neutrophils # Seg Neutrophils # Man Lymphocytes # (Manual) Monocytes % (Manual) Eosinophils % (Manual) Monocytes # (Manual) Eosinophils # (Manual) D-Dimer Heparin Anti-Xa Level ABG pH 7.286 L POC ABG pCO2 POC ABG pO2 ABG pO2 96.2 H ABG HCO3 ABG O2 Saturation ABG Base Excess -6.3 L ABG Hemoglobin 8.8 L ABG Oxyhemoglobin VBG pH ABG Sodium ABG Potassium ABG Glucose Oxyhemoglobin 94.8 L Sodium Potassium Chloride Carbon Dioxide BUN Creatinine Glucose POC Glucose 238 H 183 H Lactic Acid Calcium Ferritin AST Alkaline Phosphatase Magnesium Lactate Dehydrogenase Total Creatine Kinase CK-MB (CK-2) C-Reactive Protein Total Protein Albumin Troponin T HDL Cholesterol Arterial Blood Glucose Urine WBC (Auto) Urine Creatinine Urine Total Protein Phenytoin Coronavirus (PCR) Crossmatch 06/05/20 06/05/20 06/05/20 05:39 07:25 07:25 WBC RBC 2.97 L Hgb 8.7 L Hct 25.7 L MCHC RDW 16.0 H Lymph % (Auto) 8.8 L [place] % (Auto) 13.3 H Eos % (Auto) Lymph # 0.8 L [place] # 1.3 H Lymph # (Auto) [place] # (Auto) Eos # (Auto) Seg Neutrophils % 77.3 H Seg Neuts % (Manual) Lymphocytes % (Manual) Seg Neutrophils # Seg Neutrophils # Man Lymphocytes # (Manual) Monocytes % (Manual) Eosinophils % (Manual) Monocytes # (Manual) Eosinophils # (Manual) D-Dimer Heparin Anti-Xa Level ABG pH POC ABG pCO2 POC ABG pO2 ABG pO2 ABG HCO3 ABG O2 Saturation ABG Base Excess ABG Hemoglobin ABG Oxyhemoglobin VBG pH ABG Sodium ABG Potassium ABG Glucose Oxyhemoglobin Sodium 133 L Potassium Chloride Carbon Dioxide 17 L BUN 89 H Creatinine 2.8 H Glucose 176 H POC Glucose 149 H Lactic Acid Calcium 7.7 L Ferritin AST Alkaline Phosphatase Magnesium Lactate Dehydrogenase Total Creatine Kinase CK-MB (CK-2) C-Reactive Protein Total Protein 4.2 L Albumin 1.9 L Troponin T HDL Cholesterol Arterial Blood Glucose Urine WBC (Auto) Urine Creatinine Urine Total Protein Phenytoin Coronavirus (PCR) Crossmatch 06/05/20 06/05/20 06/05/20 07:25 12:05 15:41 WBC RBC Hgb Hct MCHC RDW Lymph % (Auto) [place] % (Auto) Eos % (Auto) Lymph # [place] # Lymph # (Auto) [place] # (Auto) Eos # (Auto) Seg Neutrophils % Seg Neuts % (Manual) Lymphocytes % (Manual) Seg Neutrophils # Seg Neutrophils # Man Lymphocytes # (Manual) Monocytes % (Manual) Eosinophils % (Manual) Monocytes # (Manual) Eosinophils # (Manual) D-Dimer Heparin Anti-Xa Level 0.76 H 0.81 H ABG pH POC ABG pCO2 POC ABG pO2 ABG pO2 ABG HCO3 ABG O2 Saturation ABG Base Excess ABG Hemoglobin ABG Oxyhemoglobin VBG pH ABG Sodium ABG Potassium ABG Glucose Oxyhemoglobin Sodium Potassium Chloride Carbon Dioxide BUN Creatinine Glucose POC Glucose 198 H Lactic Acid Calcium Ferritin AST Alkaline Phosphatase Magnesium Lactate Dehydrogenase Total Creatine Kinase CK-MB (CK-2) C-Reactive Protein Total Protein Albumin Troponin T HDL Cholesterol Arterial Blood Glucose Urine WBC (Auto) Urine Creatinine Urine Total Protein Phenytoin Coronavirus (PCR) Crossmatch 06/05/20 06/05/20 06/06/20 18:08 23:25 04:00 WBC RBC Hgb Hct MCHC RDW Lymph % (Auto) [place] % (Auto) Eos % (Auto) Lymph # [place] # Lymph # (Auto) [place] # (Auto) Eos # (Auto) Seg Neutrophils % Seg Neuts % (Manual) Lymphocytes % (Manual) Seg Neutrophils # Seg Neutrophils # Man Lymphocytes # (Manual) Monocytes % (Manual) Eosinophils % (Manual) Monocytes # (Manual) Eosinophils # (Manual) D-Dimer Heparin Anti-Xa Level ABG pH POC ABG pCO2 POC ABG pO2 ABG pO2 ABG HCO3 ABG O2 Saturation ABG Base Excess ABG Hemoglobin ABG Oxyhemoglobin VBG pH ABG Sodium ABG Potassium ABG Glucose Oxyhemoglobin Sodium Potassium Chloride Carbon Dioxide BUN Creatinine Glucose POC Glucose 223 H 169 H Lactic Acid Calcium Ferritin AST Alkaline Phosphatase Magnesium Lactate Dehydrogenase Total Creatine Kinase CK-MB (CK-2) C-Reactive Protein Total Protein Albumin Troponin T HDL Cholesterol Arterial Blood Glucose Urine WBC (Auto) 15.0 H Urine Creatinine Urine Total Protein Phenytoin Coronavirus (PCR) Crossmatch 06/06/20 06/06/20 06/06/20 04:00 05:33 05:38 WBC RBC 2.97 L Hgb 8.7 L Hct 26.8 L MCHC RDW 16.8 H Lymph % (Auto) [place] % (Auto) Eos % (Auto) Lymph # [place] # Lymph # (Auto) [place] # (Auto) Eos # (Auto) Seg Neutrophils % Seg Neuts % (Manual) Lymphocytes % (Manual) Seg Neutrophils # Seg Neutrophils # Man Lymphocytes # (Manual) Monocytes % (Manual) Eosinophils % (Manual) Monocytes # (Manual) Eosinophils # (Manual) D-Dimer Heparin Anti-Xa Level ABG pH POC ABG pCO2 POC ABG pO2 ABG pO2 ABG HCO3 ABG O2 Saturation ABG Base Excess ABG Hemoglobin ABG Oxyhemoglobin VBG pH ABG Sodium ABG Potassium ABG Glucose Oxyhemoglobin Sodium Potassium Chloride Carbon Dioxide BUN Creatinine Glucose POC Glucose 186 H Lactic Acid Calcium Ferritin AST Alkaline Phosphatase Magnesium Lactate Dehydrogenase Total Creatine Kinase CK-MB (CK-2) C-Reactive Protein Total Protein Albumin Troponin T HDL Cholesterol Arterial Blood Glucose Urine WBC (Auto) Urine Creatinine 82.2 H Urine Total Protein 196 H Phenytoin Coronavirus (PCR) Crossmatch 06/06/20 06/06/20 06/06/20 05:38 12:25 17:03 WBC RBC Hgb Hct MCHC RDW Lymph % (Auto) [place] % (Auto) Eos % (Auto) Lymph # [place] # Lymph # (Auto) [place] # (Auto) Eos # (Auto) Seg Neutrophils % Seg Neuts % (Manual) Lymphocytes % (Manual) Seg Neutrophils # Seg Neutrophils # Man Lymphocytes # (Manual) Monocytes % (Manual) Eosinophils % (Manual) Monocytes # (Manual) Eosinophils # (Manual) D-Dimer Heparin Anti-Xa Level ABG pH POC ABG pCO2 POC ABG pO2 ABG pO2 ABG HCO3 ABG O2 Saturation ABG Base Excess ABG Hemoglobin ABG Oxyhemoglobin VBG pH ABG Sodium ABG Potassium ABG Glucose Oxyhemoglobin Sodium 134 L Potassium 5.2 H Chloride Carbon Dioxide 18 L BUN 97 H Creatinine 2.5 H Glucose 193 H POC Glucose 239 H 252 H Lactic Acid Calcium 7.5 L Ferritin AST Alkaline Phosphatase Magnesium Lactate Dehydrogenase Total Creatine Kinase CK-MB (CK-2) C-Reactive Protein Total Protein 4.1 L Albumin 1.9 L Troponin T HDL Cholesterol Arterial Blood Glucose Urine WBC (Auto) Urine Creatinine Urine Total Protein Phenytoin Coronavirus (PCR) Crossmatch 06/07/20 06/07/20 06/07/20 00:16 01:49 04:00 WBC RBC 2.91 L Hgb 8.4 L Hct 25.0 L MCHC RDW 16.1 H Lymph % (Auto) 5.7 L [place] % (Auto) 10.5 H Eos % (Auto) Lymph # 0.6 L [place] # 1.1 H Lymph # (Auto) [place] # (Auto) Eos # (Auto) Seg Neutrophils % 83.6 H Seg Neuts % (Manual) Lymphocytes % (Manual) Seg Neutrophils # 9.1 H Seg Neutrophils # Man Lymphocytes # (Manual) Monocytes % (Manual) Eosinophils % (Manual) Monocytes # (Manual) Eosinophils # (Manual) D-Dimer Heparin Anti-Xa Level 0.26 L ABG pH POC ABG pCO2 POC ABG pO2 ABG pO2 ABG HCO3 ABG O2 Saturation ABG Base Excess ABG Hemoglobin ABG Oxyhemoglobin VBG pH ABG Sodium ABG Potassium ABG Glucose Oxyhemoglobin Sodium Potassium Chloride Carbon Dioxide BUN Creatinine Glucose POC Glucose 173 H Lactic Acid Calcium Ferritin AST Alkaline Phosphatase Magnesium Lactate Dehydrogenase Total Creatine Kinase CK-MB (CK-2) C-Reactive Protein Total Protein Albumin Troponin T HDL Cholesterol Arterial Blood Glucose Urine WBC (Auto) Urine Creatinine Urine Total Protein Phenytoin Coronavirus (PCR) Crossmatch 06/07/20 06/07/20 06/07/20 04:00 04:54 05:51 WBC RBC Hgb Hct MCHC RDW Lymph % (Auto) [place] % (Auto) Eos % (Auto) Lymph # [place] # Lymph # (Auto) [place] # (Auto) Eos # (Auto) Seg Neutrophils % Seg Neuts % (Manual) Lymphocytes % (Manual) Seg Neutrophils # Seg Neutrophils # Man Lymphocytes # (Manual) Monocytes % (Manual) Eosinophils % (Manual) Monocytes # (Manual) Eosinophils # (Manual) D-Dimer Heparin Anti-Xa Level ABG pH 7.317 L POC ABG pCO2 POC ABG pO2 ABG pO2 71.4 L ABG HCO3 ABG O2 Saturation 94.3 L ABG Base Excess -4.8 L ABG Hemoglobin 7.1 L ABG Oxyhemoglobin VBG pH ABG Sodium ABG Potassium ABG Glucose Oxyhemoglobin 92.2 L Sodium 133 L Potassium Chloride Carbon Dioxide 18 L BUN 100 H Creatinine 2.5 H Glucose 158 H POC Glucose 168 H Lactic Acid Calcium 7.6 L Ferritin AST Alkaline Phosphatase Magnesium Lactate Dehydrogenase Total Creatine Kinase CK-MB (CK-2) C-Reactive Protein Total Protein 4.7 L Albumin 2.0 L Troponin T HDL Cholesterol Arterial Blood Glucose Urine WBC (Auto) Urine Creatinine Urine Total Protein Phenytoin Coronavirus (PCR) Crossmatch 06/07/20 06/07/20 06/07/20 12:03 17:17 20:10 WBC RBC Hgb Hct MCHC RDW Lymph % (Auto) [place] % (Auto) Eos % (Auto) Lymph # [place] # Lymph # (Auto) [place] # (Auto) Eos # (Auto) Seg Neutrophils % Seg Neuts % (Manual) Lymphocytes % (Manual) Seg Neutrophils # Seg Neutrophils # Man Lymphocytes # (Manual) Monocytes % (Manual) Eosinophils % (Manual) Monocytes # (Manual) Eosinophils # (Manual) D-Dimer Heparin Anti-Xa Level 0.17 L ABG pH POC ABG pCO2 POC ABG pO2 ABG pO2 ABG HCO3 ABG O2 Saturation ABG Base Excess ABG Hemoglobin ABG Oxyhemoglobin VBG pH ABG Sodium ABG Potassium ABG Glucose Oxyhemoglobin Sodium Potassium Chloride Carbon Dioxide BUN Creatinine Glucose POC Glucose 276 H 281 H Lactic Acid Calcium Ferritin AST Alkaline Phosphatase Magnesium Lactate Dehydrogenase Total Creatine Kinase CK-MB (CK-2) C-Reactive Protein Total Protein Albumin Troponin T HDL Cholesterol Arterial Blood Glucose Urine WBC (Auto) Urine Creatinine Urine Total Protein Phenytoin Coronavirus (PCR) Crossmatch 06/08/20 06/08/20 06/08/20 00:02 04:47 04:47 WBC 16.4 H RBC 3.07 L Hgb 8.6 L Hct 26.5 L MCHC RDW 16.3 H Lymph % (Auto) [place] % (Auto) Eos % (Auto) Lymph # [place] # Lymph # (Auto) [place] # (Auto) Eos # (Auto) Seg Neutrophils % Seg Neuts % (Manual) 90.0 H Lymphocytes % (Manual) 3.0 L Seg Neutrophils # Seg Neutrophils # Man 14.8 H Lymphocytes # (Manual) 0.5 L Monocytes % (Manual) Eosinophils % (Manual) Monocytes # (Manual) 1.1 H Eosinophils # (Manual) D-Dimer Heparin Anti-Xa Level ABG pH POC ABG pCO2 POC ABG pO2 ABG pO2 ABG HCO3 ABG O2 Saturation ABG Base Excess ABG Hemoglobin ABG Oxyhemoglobin VBG pH ABG Sodium ABG Potassium ABG Glucose Oxyhemoglobin Sodium 129 L Potassium Chloride 95.6 L Carbon Dioxide 17 L BUN 106 H Creatinine 2.5 H Glucose 213 H POC Glucose 242 H Lactic Acid Calcium 7.6 L Ferritin AST Alkaline Phosphatase Magnesium Lactate Dehydrogenase Total Creatine Kinase CK-MB (CK-2) C-Reactive Protein Total Protein 5.0 L Albumin 2.1 L Troponin T HDL Cholesterol Arterial Blood Glucose Urine WBC (Auto) Urine Creatinine Urine Total Protein Phenytoin Coronavirus (PCR) Crossmatch 06/08/20 06/08/20 06/08/20 05:40 11:55 17:54 WBC RBC Hgb Hct MCHC RDW Lymph % (Auto) [place] % (Auto) Eos % (Auto) Lymph # [place] # Lymph # (Auto) [place] # (Auto) Eos # (Auto) Seg Neutrophils % Seg Neuts % (Manual) Lymphocytes % (Manual) Seg Neutrophils # Seg Neutrophils # Man Lymphocytes # (Manual) Monocytes % (Manual) Eosinophils % (Manual) Monocytes # (Manual) Eosinophils # (Manual) D-Dimer Heparin Anti-Xa Level ABG pH POC ABG pCO2 POC ABG pO2 ABG pO2 ABG HCO3 ABG O2 Saturation ABG Base Excess ABG Hemoglobin ABG Oxyhemoglobin VBG pH ABG Sodium ABG Potassium ABG Glucose Oxyhemoglobin Sodium Potassium Chloride Carbon Dioxide BUN Creatinine Glucose POC Glucose 221 H 218 H 163 H Lactic Acid Calcium Ferritin AST Alkaline Phosphatase Magnesium Lactate Dehydrogenase Total Creatine Kinase CK-MB (CK-2) C-Reactive Protein Total Protein Albumin Troponin T HDL Cholesterol Arterial Blood Glucose Urine WBC (Auto) Urine Creatinine Urine Total Protein Phenytoin Coronavirus (PCR) Crossmatch 06/08/20 06/09/20 06/09/20 22:01 00:09 05:16 WBC 19.0 H RBC 3.35 L Hgb 9.2 L Hct 28.5 L MCHC RDW 16.3 H Lymph % (Auto) [place] % (Auto) Eos % (Auto) Lymph # [place] # Lymph # (Auto) [place] # (Auto) Eos # (Auto) Seg Neutrophils % Seg Neuts % (Manual) 85.0 H Lymphocytes % (Manual) 7.0 L Seg Neutrophils # Seg Neutrophils # Man 16.2 H Lymphocytes # (Manual) Monocytes % (Manual) Eosinophils % (Manual) Monocytes # (Manual) 1.3 H Eosinophils # (Manual) D-Dimer Heparin Anti-Xa Level ABG pH POC ABG pCO2 POC ABG pO2 ABG pO2 ABG HCO3 ABG O2 Saturation ABG Base Excess ABG Hemoglobin ABG Oxyhemoglobin VBG pH ABG Sodium ABG Potassium ABG Glucose Oxyhemoglobin Sodium Potassium Chloride Carbon Dioxide BUN Creatinine Glucose POC Glucose 182 H 150 H Lactic Acid Calcium Ferritin AST Alkaline Phosphatase Magnesium Lactate Dehydrogenase Total Creatine Kinase CK-MB (CK-2) C-Reactive Protein Total Protein Albumin Troponin T HDL Cholesterol Arterial Blood Glucose Urine WBC (Auto) Urine Creatinine Urine Total Protein Phenytoin Coronavirus (PCR) Crossmatch 06/09/20 06/09/20 06/09/20 05:16 05:24 11:29 WBC RBC Hgb Hct MCHC RDW Lymph % (Auto) [place] % (Auto) Eos % (Auto) Lymph # [place] # Lymph # (Auto) [place] # (Auto) Eos # (Auto) Seg Neutrophils % Seg Neuts % (Manual) Lymphocytes % (Manual) Seg Neutrophils # Seg Neutrophils # Man Lymphocytes # (Manual) Monocytes % (Manual) Eosinophils % (Manual) Monocytes # (Manual) Eosinophils # (Manual) D-Dimer Heparin Anti-Xa Level ABG pH POC ABG pCO2 POC ABG pO2 ABG pO2 ABG HCO3 ABG O2 Saturation ABG Base Excess ABG Hemoglobin ABG Oxyhemoglobin VBG pH ABG Sodium ABG Potassium ABG Glucose Oxyhemoglobin Sodium 133 L Potassium Chloride Carbon Dioxide 19 L BUN 109 H Creatinine 2.1 H Glucose 133 H POC Glucose 128 H 119 H Lactic Acid Calcium 7.7 L Ferritin AST Alkaline Phosphatase < 5 L Magnesium Lactate Dehydrogenase Total Creatine Kinase CK-MB (CK-2) C-Reactive Protein Total Protein 4.6 L Albumin < 0.2 L Troponin T HDL Cholesterol Arterial Blood Glucose Urine WBC (Auto) Urine Creatinine Urine Total Protein Phenytoin Coronavirus (PCR) Crossmatch 06/09/20 06/10/20 06/10/20 17:32 00:00 05:49 WBC RBC Hgb Hct MCHC RDW Lymph % (Auto) [place] % (Auto) Eos % (Auto) Lymph # [place] # Lymph # (Auto) [place] # (Auto) Eos # (Auto) Seg Neutrophils % Seg Neuts % (Manual) Lymphocytes % (Manual) Seg Neutrophils # Seg Neutrophils # Man Lymphocytes # (Manual) Monocytes % (Manual) Eosinophils % (Manual) Monocytes # (Manual) Eosinophils # (Manual) D-Dimer Heparin Anti-Xa Level 0.19 L ABG pH POC ABG pCO2 POC ABG pO2 ABG pO2 ABG HCO3 ABG O2 Saturation ABG Base Excess ABG Hemoglobin ABG Oxyhemoglobin VBG pH ABG Sodium ABG Potassium ABG Glucose Oxyhemoglobin Sodium Potassium Chloride Carbon Dioxide BUN Creatinine Glucose POC Glucose 106 H 117 H Lactic Acid Calcium Ferritin AST Alkaline Phosphatase Magnesium Lactate Dehydrogenase Total Creatine Kinase CK-MB (CK-2) C-Reactive Protein Total Protein Albumin Troponin T HDL Cholesterol Arterial Blood Glucose Urine WBC (Auto) Urine Creatinine Urine Total Protein Phenytoin Coronavirus (PCR) Crossmatch 06/10/20 06/10/20 06/10/20 05:54 07:40 11:40 WBC RBC Hgb Hct MCHC RDW Lymph % (Auto) [place] % (Auto) Eos % (Auto) Lymph # [place] # Lymph # (Auto) [place] # (Auto) Eos # (Auto) Seg Neutrophils % Seg Neuts % (Manual) Lymphocytes % (Manual) Seg Neutrophils # Seg Neutrophils # Man Lymphocytes # (Manual) Monocytes % (Manual) Eosinophils % (Manual) Monocytes # (Manual) Eosinophils # (Manual) D-Dimer Heparin Anti-Xa Level ABG pH POC ABG pCO2 POC ABG pO2 ABG pO2 ABG HCO3 ABG O2 Saturation ABG Base Excess ABG Hemoglobin ABG Oxyhemoglobin VBG pH ABG Sodium ABG Potassium ABG Glucose Oxyhemoglobin Sodium 146 H D Potassium Chloride Carbon Dioxide 20 L BUN 99 H Creatinine 1.9 H Glucose 121 H POC Glucose 127 H 138 H Lactic Acid Calcium 8.2 L Ferritin AST Alkaline Phosphatase Magnesium Lactate Dehydrogenase Total Creatine Kinase CK-MB (CK-2) C-Reactive Protein Total Protein Albumin Troponin T HDL Cholesterol Arterial Blood Glucose Urine WBC (Auto) Urine Creatinine Urine Total Protein Phenytoin Coronavirus (PCR) Crossmatch 06/10/20 06/10/20 06/10/20 14:44 17:31 23:22 WBC RBC Hgb Hct MCHC RDW Lymph % (Auto) [place] % (Auto) Eos % (Auto) Lymph # [place] # Lymph # (Auto) [place] # (Auto) Eos # (Auto) Seg Neutrophils % Seg Neuts % (Manual) Lymphocytes % (Manual) Seg Neutrophils # Seg Neutrophils # Man Lymphocytes # (Manual) Monocytes % (Manual) Eosinophils % (Manual) Monocytes # (Manual) Eosinophils # (Manual) D-Dimer Heparin Anti-Xa Level 0.17 L ABG pH POC ABG pCO2 POC ABG pO2 ABG pO2 ABG HCO3 ABG O2 Saturation ABG Base Excess ABG Hemoglobin ABG Oxyhemoglobin VBG pH ABG Sodium ABG Potassium ABG Glucose Oxyhemoglobin Sodium Potassium Chloride Carbon Dioxide BUN Creatinine Glucose POC Glucose 128 H 114 H Lactic Acid Calcium Ferritin AST Alkaline Phosphatase Magnesium Lactate Dehydrogenase Total Creatine Kinase CK-MB (CK-2) C-Reactive Protein Total Protein Albumin Troponin T HDL Cholesterol Arterial Blood Glucose Urine WBC (Auto) Urine Creatinine Urine Total Protein Phenytoin Coronavirus (PCR) Crossmatch 06/11/20 06/11/20 06/11/20 00:22 03:45 03:45 WBC 14.6 H RBC 2.77 L Hgb 7.9 L Hct 24.3 L MCHC RDW 16.8 H Lymph % (Auto) 6.6 L [place] % (Auto) 8.5 H Eos % (Auto) Lymph # 1.0 L [place] # 1.2 H Lymph # (Auto) [place] # (Auto) Eos # (Auto) Seg Neutrophils % 82.9 H Seg Neuts % (Manual) Lymphocytes % (Manual) Seg Neutrophils # 12.1 H Seg Neutrophils # Man Lymphocytes # (Manual) Monocytes % (Manual) Eosinophils % (Manual) Monocytes # (Manual) Eosinophils # (Manual) D-Dimer Heparin Anti-Xa Level 0.24 L ABG pH POC ABG pCO2 POC ABG pO2 ABG pO2 ABG HCO3 ABG O2 Saturation ABG Base Excess ABG Hemoglobin ABG Oxyhemoglobin VBG pH ABG Sodium ABG Potassium ABG Glucose Oxyhemoglobin Sodium Potassium Chloride Carbon Dioxide 20 L BUN 88 H Creatinine 1.5 H Glucose 111 H POC Glucose Lactic Acid Calcium 8.2 L Ferritin AST Alkaline Phosphatase Magnesium Lactate Dehydrogenase Total Creatine Kinase CK-MB (CK-2) C-Reactive Protein Total Protein Albumin Troponin T HDL Cholesterol Arterial Blood Glucose Urine WBC (Auto) Urine Creatinine Urine Total Protein Phenytoin Coronavirus (PCR) Crossmatch 06/11/20 06/11/20 06/11/20 06:03 10:22 11:11 WBC RBC Hgb Hct MCHC RDW Lymph % (Auto) [place] % (Auto) Eos % (Auto) Lymph # [place] # Lymph # (Auto) [place] # (Auto) Eos # (Auto) Seg Neutrophils % Seg Neuts % (Manual) Lymphocytes % (Manual) Seg Neutrophils # Seg Neutrophils # Man Lymphocytes # (Manual) Monocytes % (Manual) Eosinophils % (Manual) Monocytes # (Manual) Eosinophils # (Manual) D-Dimer Heparin Anti-Xa Level 0.26 L ABG pH POC ABG pCO2 POC ABG pO2 ABG pO2 ABG HCO3 ABG O2 Saturation ABG Base Excess ABG Hemoglobin 9.6 L ABG Oxyhemoglobin VBG pH ABG Sodium ABG Potassium ABG Glucose Oxyhemoglobin Sodium Potassium Chloride Carbon Dioxide BUN Creatinine Glucose POC Glucose 114 H Lactic Acid Calcium Ferritin AST Alkaline Phosphatase Magnesium Lactate Dehydrogenase Total Creatine Kinase CK-MB (CK-2) C-Reactive Protein Total Protein Albumin Troponin T HDL Cholesterol Arterial Blood Glucose Urine WBC (Auto) Urine Creatinine Urine Total Protein Phenytoin Coronavirus (PCR) Crossmatch 06/11/20 06/11/20 06/12/20 12:24 17:24 00:21 WBC RBC Hgb Hct MCHC RDW Lymph % (Auto) [place] % (Auto) Eos % (Auto) Lymph # [place] # Lymph # (Auto) [place] # (Auto) Eos # (Auto) Seg Neutrophils % Seg Neuts % (Manual) Lymphocytes % (Manual) Seg Neutrophils # Seg Neutrophils # Man Lymphocytes # (Manual) Monocytes % (Manual) Eosinophils % (Manual) Monocytes # (Manual) Eosinophils # (Manual) D-Dimer Heparin Anti-Xa Level ABG pH POC ABG pCO2 POC ABG pO2 ABG pO2 ABG HCO3 ABG O2 Saturation ABG Base Excess ABG Hemoglobin ABG Oxyhemoglobin VBG pH ABG Sodium ABG Potassium ABG Glucose Oxyhemoglobin Sodium Potassium Chloride Carbon Dioxide BUN Creatinine Glucose POC Glucose 119 H 126 H 117 H Lactic Acid Calcium Ferritin AST Alkaline Phosphatase Magnesium Lactate Dehydrogenase Total Creatine Kinase CK-MB (CK-2) C-Reactive Protein Total Protein Albumin Troponin T HDL Cholesterol Arterial Blood Glucose Urine WBC (Auto) Urine Creatinine Urine Total Protein Phenytoin Coronavirus (PCR) Crossmatch 06/12/20 06/12/20 06/12/20 02:46 02:46 05:46 WBC 13.2 H RBC 2.83 L Hgb 8.3 L Hct 24.3 L MCHC RDW 16.6 H Lymph % (Auto) 6.2 L [place] % (Auto) 9.5 H Eos % (Auto) Lymph # 0.8 L [place] # 1.3 H Lymph # (Auto) [place] # (Auto) Eos # (Auto) Seg Neutrophils % 81.9 H Seg Neuts % (Manual) Lymphocytes % (Manual) Seg Neutrophils # 10.9 H Seg Neutrophils # Man Lymphocytes # (Manual) Monocytes % (Manual) Eosinophils % (Manual) Monocytes # (Manual) Eosinophils # (Manual) D-Dimer Heparin Anti-Xa Level ABG pH POC ABG pCO2 POC ABG pO2 ABG pO2 ABG HCO3 ABG O2 Saturation ABG Base Excess ABG Hemoglobin ABG Oxyhemoglobin VBG pH ABG Sodium ABG Potassium ABG Glucose Oxyhemoglobin Sodium Potassium 3.5 L Chloride Carbon Dioxide BUN 77 H Creatinine 1.3 H Glucose POC Glucose 132 H Lactic Acid Calcium 8.3 L Ferritin AST Alkaline Phosphatase Magnesium Lactate Dehydrogenase Total Creatine Kinase CK-MB (CK-2) C-Reactive Protein Total Protein Albumin Troponin T HDL Cholesterol Arterial Blood Glucose Urine WBC (Auto) Urine Creatinine Urine Total Protein Phenytoin Coronavirus (PCR) Crossmatch 06/12/20 06/12/20 06/12/20 09:20 12:16 17:48 WBC RBC Hgb Hct MCHC RDW Lymph % (Auto) [place] % (Auto) Eos % (Auto) Lymph # [place] # Lymph # (Auto) [place] # (Auto) Eos # (Auto) Seg Neutrophils % Seg Neuts % (Manual) Lymphocytes % (Manual) Seg Neutrophils # Seg Neutrophils # Man Lymphocytes # (Manual) Monocytes % (Manual) Eosinophils % (Manual) Monocytes # (Manual) Eosinophils # (Manual) D-Dimer Heparin Anti-Xa Level ABG pH POC ABG pCO2 POC ABG pO2 ABG pO2 91.1 H ABG HCO3 ABG O2 Saturation ABG Base Excess ABG Hemoglobin ABG Oxyhemoglobin VBG pH ABG Sodium ABG Potassium ABG Glucose Oxyhemoglobin 94.8 L Sodium Potassium Chloride Carbon Dioxide BUN Creatinine Glucose POC Glucose 167 H 182 H Lactic Acid Calcium Ferritin AST Alkaline Phosphatase Magnesium Lactate Dehydrogenase Total Creatine Kinase CK-MB (CK-2) C-Reactive Protein Total Protein Albumin Troponin T HDL Cholesterol Arterial Blood Glucose Urine WBC (Auto) Urine Creatinine Urine Total Protein Phenytoin Coronavirus (PCR) Crossmatch 06/13/20 06/13/20 06/13/20 00:08 05:37 09:09 WBC RBC Hgb Hct MCHC RDW Lymph % (Auto) [place] % (Auto) Eos % (Auto) Lymph # [place] # Lymph # (Auto) [place] # (Auto) Eos # (Auto) Seg Neutrophils % Seg Neuts % (Manual) Lymphocytes % (Manual) Seg Neutrophils # Seg Neutrophils # Man Lymphocytes # (Manual) Monocytes % (Manual) Eosinophils % (Manual) Monocytes # (Manual) Eosinophils # (Manual) D-Dimer Heparin Anti-Xa Level 0.86 H ABG pH POC ABG pCO2 POC ABG pO2 ABG pO2 ABG HCO3 ABG O2 Saturation ABG Base Excess ABG Hemoglobin ABG Oxyhemoglobin VBG pH ABG Sodium ABG Potassium ABG Glucose Oxyhemoglobin Sodium Potassium Chloride Carbon Dioxide BUN Creatinine Glucose POC Glucose 142 H 119 H Lactic Acid Calcium Ferritin AST Alkaline Phosphatase Magnesium Lactate Dehydrogenase Total Creatine Kinase CK-MB (CK-2) C-Reactive Protein Total Protein Albumin Troponin T HDL Cholesterol Arterial Blood Glucose Urine WBC (Auto) Urine Creatinine Urine Total Protein Phenytoin Coronavirus (PCR) Crossmatch 06/13/20 06/13/20 06/13/20 12:28 17:55 21:17 WBC RBC Hgb Hct MCHC RDW Lymph % (Auto) [place] % (Auto) Eos % (Auto) Lymph # [place] # Lymph # (Auto) [place] # (Auto) Eos # (Auto) Seg Neutrophils % Seg Neuts % (Manual) Lymphocytes % (Manual) Seg Neutrophils # Seg Neutrophils # Man Lymphocytes # (Manual) Monocytes % (Manual) Eosinophils % (Manual) Monocytes # (Manual) Eosinophils # (Manual) D-Dimer Heparin Anti-Xa Level ABG pH POC ABG pCO2 POC ABG pO2 ABG pO2 ABG HCO3 ABG O2 Saturation ABG Base Excess ABG Hemoglobin ABG Oxyhemoglobin VBG pH ABG Sodium ABG Potassium ABG Glucose Oxyhemoglobin Sodium Potassium Chloride Carbon Dioxide BUN 61 H Creatinine Glucose 131 H POC Glucose 165 H 174 H Lactic Acid Calcium Ferritin AST Alkaline Phosphatase Magnesium Lactate Dehydrogenase Total Creatine Kinase CK-MB (CK-2) C-Reactive Protein Total Protein Albumin Troponin T HDL Cholesterol Arterial Blood Glucose Urine WBC (Auto) Urine Creatinine Urine Total Protein Phenytoin Coronavirus (PCR) Crossmatch 06/13/20 06/13/20 06/14/20 21:17 23:50 05:34 WBC RBC Hgb Hct MCHC RDW Lymph % (Auto) [place] % (Auto) Eos % (Auto) Lymph # [place] # Lymph # (Auto) [place] # (Auto) Eos # (Auto) Seg Neutrophils % Seg Neuts % (Manual) Lymphocytes % (Manual) Seg Neutrophils # Seg Neutrophils # Man Lymphocytes # (Manual) Monocytes % (Manual) Eosinophils % (Manual) Monocytes # (Manual) Eosinophils # (Manual) D-Dimer Heparin Anti-Xa Level 0.72 H ABG pH POC ABG pCO2 POC ABG pO2 ABG pO2 ABG HCO3 ABG O2 Saturation ABG Base Excess ABG Hemoglobin ABG Oxyhemoglobin VBG pH ABG Sodium ABG Potassium ABG Glucose Oxyhemoglobin Sodium 146 H Potassium Chloride 107.6 H Carbon Dioxide BUN 61 H Creatinine 1.3 H Glucose 135 H POC Glucose 146 H Lactic Acid Calcium Ferritin AST Alkaline Phosphatase Magnesium Lactate Dehydrogenase Total Creatine Kinase CK-MB (CK-2) C-Reactive Protein Total Protein Albumin Troponin T HDL Cholesterol Arterial Blood Glucose Urine WBC (Auto) Urine Creatinine Urine Total Protein Phenytoin Coronavirus (PCR) Crossmatch 06/14/20 06/14/20 06/14/20 06:11 09:28 11:30 WBC RBC Hgb Hct MCHC RDW Lymph % (Auto) [place] % (Auto) Eos % (Auto) Lymph # [place] # Lymph # (Auto) [place] # (Auto) Eos # (Auto) Seg Neutrophils % Seg Neuts % (Manual) Lymphocytes % (Manual) Seg Neutrophils # Seg Neutrophils # Man Lymphocytes # (Manual) Monocytes % (Manual) Eosinophils % (Manual) Monocytes # (Manual) Eosinophils # (Manual) D-Dimer Heparin Anti-Xa Level 0.90 H ABG pH POC ABG pCO2 POC ABG pO2 ABG pO2 ABG HCO3 ABG O2 Saturation ABG Base Excess ABG Hemoglobin ABG Oxyhemoglobin VBG pH ABG Sodium ABG Potassium ABG Glucose Oxyhemoglobin Sodium Potassium Chloride Carbon Dioxide BUN Creatinine Glucose POC Glucose 141 H 186 H Lactic Acid Calcium Ferritin AST Alkaline Phosphatase Magnesium Lactate Dehydrogenase Total Creatine Kinase CK-MB (CK-2) C-Reactive Protein Total Protein Albumin Troponin T HDL Cholesterol Arterial Blood Glucose Urine WBC (Auto) Urine Creatinine Urine Total Protein Phenytoin Coronavirus (PCR) Crossmatch 06/14/20 06/14/20 06/14/20 16:07 18:16 23:51 WBC RBC Hgb Hct MCHC RDW Lymph % (Auto) [place] % (Auto) Eos % (Auto) Lymph # [place] # Lymph # (Auto) [place] # (Auto) Eos # (Auto) Seg Neutrophils % Seg Neuts % (Manual) Lymphocytes % (Manual) Seg Neutrophils # Seg Neutrophils # Man Lymphocytes # (Manual) Monocytes % (Manual) Eosinophils % (Manual) Monocytes # (Manual) Eosinophils # (Manual) D-Dimer Heparin Anti-Xa Level 0.82 H ABG pH POC ABG pCO2 POC ABG pO2 ABG pO2 ABG HCO3 ABG O2 Saturation ABG Base Excess ABG Hemoglobin ABG Oxyhemoglobin VBG pH ABG Sodium ABG Potassium ABG Glucose Oxyhemoglobin Sodium Potassium Chloride Carbon Dioxide BUN Creatinine Glucose POC Glucose 106 H 154 H Lactic Acid Calcium Ferritin AST Alkaline Phosphatase Magnesium Lactate Dehydrogenase Total Creatine Kinase CK-MB (CK-2) C-Reactive Protein Total Protein Albumin Troponin T HDL Cholesterol Arterial Blood Glucose Urine WBC (Auto) Urine Creatinine Urine Total Protein Phenytoin Coronavirus (PCR) Crossmatch 06/15/20 06/15/20 06/15/20 04:24 04:24 05:59 WBC RBC 2.75 L Hgb 7.9 L Hct 24.0 L MCHC RDW 16.4 H Lymph % (Auto) 12.9 L [place] % (Auto) 8.7 H Eos % (Auto) 4.6 H Lymph # 1.1 L [place] # Lymph # (Auto) [place] # (Auto) Eos # (Auto) Seg Neutrophils % 73.2 H Seg Neuts % (Manual) Lymphocytes % (Manual) Seg Neutrophils # Seg Neutrophils # Man Lymphocytes # (Manual) Monocytes % (Manual) Eosinophils % (Manual) Monocytes # (Manual) Eosinophils # (Manual) D-Dimer Heparin Anti-Xa Level ABG pH POC ABG pCO2 POC ABG pO2 ABG pO2 ABG HCO3 ABG O2 Saturation ABG Base Excess ABG Hemoglobin ABG Oxyhemoglobin VBG pH ABG Sodium ABG Potassium ABG Glucose Oxyhemoglobin Sodium Potassium 3.4 L Chloride Carbon Dioxide BUN 55 H Creatinine 1.3 H Glucose 142 H POC Glucose 131 H Lactic Acid Calcium Ferritin AST Alkaline Phosphatase Magnesium Lactate Dehydrogenase Total Creatine Kinase CK-MB (CK-2) C-Reactive Protein Total Protein Albumin Troponin T HDL Cholesterol Arterial Blood Glucose Urine WBC (Auto) Urine Creatinine Urine Total Protein Phenytoin Coronavirus (PCR) Crossmatch 06/15/20 06/15/20 06/16/20 12:33 17:07 00:22 WBC RBC Hgb Hct MCHC RDW Lymph % (Auto) [place] % (Auto) Eos % (Auto) Lymph # [place] # Lymph # (Auto) [place] # (Auto) Eos # (Auto) Seg Neutrophils % Seg Neuts % (Manual) Lymphocytes % (Manual) Seg Neutrophils # Seg Neutrophils # Man Lymphocytes # (Manual) Monocytes % (Manual) Eosinophils % (Manual) Monocytes # (Manual) Eosinophils # (Manual) D-Dimer Heparin Anti-Xa Level 0.21 L ABG pH POC ABG pCO2 POC ABG pO2 ABG pO2 ABG HCO3 ABG O2 Saturation ABG Base Excess ABG Hemoglobin ABG Oxyhemoglobin VBG pH ABG Sodium ABG Potassium ABG Glucose Oxyhemoglobin Sodium Potassium Chloride Carbon Dioxide BUN Creatinine Glucose POC Glucose 180 H 185 H Lactic Acid Calcium Ferritin AST Alkaline Phosphatase Magnesium Lactate Dehydrogenase Total Creatine Kinase CK-MB (CK-2) C-Reactive Protein Total Protein Albumin Troponin T HDL Cholesterol Arterial Blood Glucose Urine WBC (Auto) Urine Creatinine Urine Total Protein Phenytoin Coronavirus (PCR) Crossmatch 06/16/20 06/16/20 06/16/20 01:45 08:06 09:15 WBC RBC Hgb Hct MCHC RDW Lymph % (Auto) [place] % (Auto) Eos % (Auto) Lymph # [place] # Lymph # (Auto) [place] # (Auto) Eos # (Auto) Seg Neutrophils % Seg Neuts % (Manual) Lymphocytes % (Manual) Seg Neutrophils # Seg Neutrophils # Man Lymphocytes # (Manual) Monocytes % (Manual) Eosinophils % (Manual) Monocytes # (Manual) Eosinophils # (Manual) D-Dimer Heparin Anti-Xa Level ABG pH POC ABG pCO2 POC ABG pO2 ABG pO2 ABG HCO3 ABG O2 Saturation ABG Base Excess ABG Hemoglobin ABG Oxyhemoglobin VBG pH ABG Sodium ABG Potassium ABG Glucose Oxyhemoglobin Sodium Potassium Chloride Carbon Dioxide BUN 49 H Creatinine Glucose 154 H POC Glucose 140 H 171 H Lactic Acid Calcium Ferritin AST Alkaline Phosphatase Magnesium Lactate Dehydrogenase Total Creatine Kinase CK-MB (CK-2) C-Reactive Protein Total Protein Albumin Troponin T HDL Cholesterol Arterial Blood Glucose Urine WBC (Auto) Urine Creatinine Urine Total Protein Phenytoin Coronavirus (PCR) Crossmatch 06/16/20 06/16/20 06/16/20 10:46 12:33 17:54 WBC RBC Hgb Hct MCHC RDW Lymph % (Auto) [place] % (Auto) Eos % (Auto) Lymph # [place] # Lymph # (Auto) [place] # (Auto) Eos # (Auto) Seg Neutrophils % Seg Neuts % (Manual) Lymphocytes % (Manual) Seg Neutrophils # Seg Neutrophils # Man Lymphocytes # (Manual) Monocytes % (Manual) Eosinophils % (Manual) Monocytes # (Manual) Eosinophils # (Manual) D-Dimer Heparin Anti-Xa Level 0.12 L ABG pH POC ABG pCO2 POC ABG pO2 ABG pO2 ABG HCO3 ABG O2 Saturation ABG Base Excess ABG Hemoglobin ABG Oxyhemoglobin VBG pH ABG Sodium ABG Potassium ABG Glucose Oxyhemoglobin Sodium Potassium Chloride Carbon Dioxide BUN Creatinine Glucose POC Glucose 166 H 151 H Lactic Acid Calcium Ferritin AST Alkaline Phosphatase Magnesium Lactate Dehydrogenase Total Creatine Kinase CK-MB (CK-2) C-Reactive Protein Total Protein Albumin Troponin T HDL Cholesterol Arterial Blood Glucose Urine WBC (Auto) Urine Creatinine Urine Total Protein Phenytoin Coronavirus (PCR) Crossmatch 06/16/20 06/17/20 06/17/20 18:47 00:00 02:19 WBC RBC Hgb Hct MCHC RDW Lymph % (Auto) [place] % (Auto) Eos % (Auto) Lymph # [place] # Lymph # (Auto) [place] # (Auto) Eos # (Auto) Seg Neutrophils % Seg Neuts % (Manual) Lymphocytes % (Manual) Seg Neutrophils # Seg Neutrophils # Man Lymphocytes # (Manual) Monocytes % (Manual) Eosinophils % (Manual) Monocytes # (Manual) Eosinophils # (Manual) D-Dimer Heparin Anti-Xa Level 0.73 H 0.77 H ABG pH POC ABG pCO2 POC ABG pO2 ABG pO2 ABG HCO3 ABG O2 Saturation ABG Base Excess ABG Hemoglobin ABG Oxyhemoglobin VBG pH ABG Sodium ABG Potassium ABG Glucose Oxyhemoglobin Sodium Potassium Chloride Carbon Dioxide BUN Creatinine Glucose POC Glucose 139 H Lactic Acid Calcium Ferritin AST Alkaline Phosphatase Magnesium Lactate Dehydrogenase Total Creatine Kinase CK-MB (CK-2) C-Reactive Protein Total Protein Albumin Troponin T HDL Cholesterol Arterial Blood Glucose Urine WBC (Auto) Urine Creatinine Urine Total Protein Phenytoin Coronavirus (PCR) Crossmatch 06/17/20 06/17/20 06/17/20 06:07 11:42 16:43 WBC RBC Hgb Hct MCHC RDW Lymph % (Auto) [place] % (Auto) Eos % (Auto) Lymph # [place] # Lymph # (Auto) [place] # (Auto) Eos # (Auto) Seg Neutrophils % Seg Neuts % (Manual) Lymphocytes % (Manual) Seg Neutrophils # Seg Neutrophils # Man Lymphocytes # (Manual) Monocytes % (Manual) Eosinophils % (Manual) Monocytes # (Manual) Eosinophils # (Manual) D-Dimer Heparin Anti-Xa Level 0.73 H ABG pH POC ABG pCO2 POC ABG pO2 ABG pO2 ABG HCO3 ABG O2 Saturation ABG Base Excess ABG Hemoglobin ABG Oxyhemoglobin VBG pH ABG Sodium ABG Potassium ABG Glucose Oxyhemoglobin Sodium Potassium Chloride Carbon Dioxide BUN Creatinine Glucose POC Glucose 169 H 169 H Lactic Acid Calcium Ferritin AST Alkaline Phosphatase Magnesium Lactate Dehydrogenase Total Creatine Kinase CK-MB (CK-2) C-Reactive Protein Total Protein Albumin Troponin T HDL Cholesterol Arterial Blood Glucose Urine WBC (Auto) Urine Creatinine Urine Total Protein Phenytoin Coronavirus (PCR) Crossmatch 06/17/20 06/17/20 06/17/20 18:18 23:08 23:16 WBC RBC Hgb Hct MCHC RDW Lymph % (Auto) [place] % (Auto) Eos % (Auto) Lymph # [place] # Lymph # (Auto) [place] # (Auto) Eos # (Auto) Seg Neutrophils % Seg Neuts % (Manual) Lymphocytes % (Manual) Seg Neutrophils # Seg Neutrophils # Man Lymphocytes # (Manual) Monocytes % (Manual) Eosinophils % (Manual) Monocytes # (Manual) Eosinophils # (Manual) D-Dimer Heparin Anti-Xa Level 0.71 H ABG pH POC ABG pCO2 POC ABG pO2 ABG pO2 ABG HCO3 ABG O2 Saturation ABG Base Excess ABG Hemoglobin ABG Oxyhemoglobin VBG pH ABG Sodium ABG Potassium ABG Glucose Oxyhemoglobin Sodium Potassium Chloride Carbon Dioxide BUN Creatinine Glucose POC Glucose 159 H 134 H Lactic Acid Calcium Ferritin AST Alkaline Phosphatase Magnesium Lactate Dehydrogenase Total Creatine Kinase CK-MB (CK-2) C-Reactive Protein Total Protein Albumin Troponin T HDL Cholesterol Arterial Blood Glucose Urine WBC (Auto) Urine Creatinine Urine Total Protein Phenytoin Coronavirus (PCR) Crossmatch 06/18/20 06/18/20 06/18/20 04:42 05:52 11:50 WBC RBC Hgb Hct MCHC RDW Lymph % (Auto) [place] % (Auto) Eos % (Auto) Lymph # [place] # Lymph # (Auto) [place] # (Auto) Eos # (Auto) Seg Neutrophils % Seg Neuts % (Manual) Lymphocytes % (Manual) Seg Neutrophils # Seg Neutrophils # Man Lymphocytes # (Manual) Monocytes % (Manual) Eosinophils % (Manual) Monocytes # (Manual) Eosinophils # (Manual) D-Dimer Heparin Anti-Xa Level ABG pH POC ABG pCO2 POC ABG pO2 ABG pO2 ABG HCO3 ABG O2 Saturation ABG Base Excess ABG Hemoglobin ABG Oxyhemoglobin VBG pH ABG Sodium ABG Potassium ABG Glucose Oxyhemoglobin Sodium Potassium Chloride Carbon Dioxide BUN 44 H Creatinine Glucose 115 H POC Glucose 171 H 167 H Lactic Acid Calcium Ferritin AST Alkaline Phosphatase Magnesium Lactate Dehydrogenase Total Creatine Kinase CK-MB (CK-2) C-Reactive Protein Total Protein Albumin Troponin T HDL Cholesterol Arterial Blood Glucose Urine WBC (Auto) Urine Creatinine Urine Total Protein Phenytoin Coronavirus (PCR) Crossmatch 06/18/20 06/19/20 06/19/20 23:46 05:48 07:52 WBC RBC Hgb Hct MCHC RDW Lymph % (Auto) [place] % (Auto) Eos % (Auto) Lymph # [place] # Lymph # (Auto) [place] # (Auto) Eos # (Auto) Seg Neutrophils % Seg Neuts % (Manual) Lymphocytes % (Manual) Seg Neutrophils # Seg Neutrophils # Man Lymphocytes # (Manual) Monocytes % (Manual) Eosinophils % (Manual) Monocytes # (Manual) Eosinophils # (Manual) D-Dimer Heparin Anti-Xa Level ABG pH POC ABG pCO2 POC ABG pO2 ABG pO2 ABG HCO3 ABG O2 Saturation ABG Base Excess ABG Hemoglobin ABG Oxyhemoglobin VBG pH ABG Sodium ABG Potassium ABG Glucose Oxyhemoglobin Sodium Potassium Chloride Carbon Dioxide BUN Creatinine Glucose POC Glucose 130 H 207 H 175 H Lactic Acid Calcium Ferritin AST Alkaline Phosphatase Magnesium Lactate Dehydrogenase Total Creatine Kinase CK-MB (CK-2) C-Reactive Protein Total Protein Albumin Troponin T HDL Cholesterol Arterial Blood Glucose Urine WBC (Auto) Urine Creatinine Urine Total Protein Phenytoin Coronavirus (PCR) Crossmatch 06/19/20 06/19/20 06/20/20 11:42 22:54 05:17 WBC RBC Hgb Hct MCHC RDW Lymph % (Auto) [place] % (Auto) Eos % (Auto) Lymph # [place] # Lymph # (Auto) [place] # (Auto) Eos # (Auto) Seg Neutrophils % Seg Neuts % (Manual) Lymphocytes % (Manual) Seg Neutrophils # Seg Neutrophils # Man Lymphocytes # (Manual) Monocytes % (Manual) Eosinophils % (Manual) Monocytes # (Manual) Eosinophils # (Manual) D-Dimer Heparin Anti-Xa Level ABG pH POC ABG pCO2 POC ABG pO2 ABG pO2 ABG HCO3 ABG O2 Saturation ABG Base Excess ABG Hemoglobin ABG Oxyhemoglobin VBG pH ABG Sodium ABG Potassium ABG Glucose Oxyhemoglobin Sodium Potassium Chloride Carbon Dioxide BUN Creatinine Glucose POC Glucose 166 H 135 H 218 H Lactic Acid Calcium Ferritin AST Alkaline Phosphatase Magnesium Lactate Dehydrogenase Total Creatine Kinase CK-MB (CK-2) C-Reactive Protein Total Protein Albumin Troponin T HDL Cholesterol Arterial Blood Glucose Urine WBC (Auto) Urine Creatinine Urine Total Protein Phenytoin Coronavirus (PCR) Crossmatch 06/20/20 06/20/20 06/20/20 12:04 16:25 16:35 WBC RBC Hgb Hct MCHC RDW Lymph % (Auto) [place] % (Auto) Eos % (Auto) Lymph # [place] # Lymph # (Auto) [place] # (Auto) Eos # (Auto) Seg Neutrophils % Seg Neuts % (Manual) Lymphocytes % (Manual) Seg Neutrophils # Seg Neutrophils # Man Lymphocytes # (Manual) Monocytes % (Manual) Eosinophils % (Manual) Monocytes # (Manual) Eosinophils # (Manual) D-Dimer Heparin Anti-Xa Level ABG pH POC ABG pCO2 POC ABG pO2 ABG pO2 59.6 L ABG HCO3 28.7 H ABG O2 Saturation 93.5 L ABG Base Excess 3.4 H ABG Hemoglobin 7.2 L ABG Oxyhemoglobin VBG pH ABG Sodium ABG Potassium ABG Glucose Oxyhemoglobin 91.3 L Sodium Potassium Chloride Carbon Dioxide BUN Creatinine Glucose POC Glucose 194 H 137 H Lactic Acid Calcium Ferritin AST Alkaline Phosphatase Magnesium Lactate Dehydrogenase Total Creatine Kinase CK-MB (CK-2) C-Reactive Protein Total Protein Albumin Troponin T HDL Cholesterol Arterial Blood Glucose Urine WBC (Auto) Urine Creatinine Urine Total Protein Phenytoin Coronavirus (PCR) Crossmatch 06/20/20 06/21/20 06/21/20 23:59 06:25 12:01 WBC RBC Hgb Hct MCHC RDW Lymph % (Auto) [place] % (Auto) Eos % (Auto) Lymph # [place] # Lymph # (Auto) [place] # (Auto) Eos # (Auto) Seg Neutrophils % Seg Neuts % (Manual) Lymphocytes % (Manual) Seg Neutrophils # Seg Neutrophils # Man Lymphocytes # (Manual) Monocytes % (Manual) Eosinophils % (Manual) Monocytes # (Manual) Eosinophils # (Manual) D-Dimer Heparin Anti-Xa Level ABG pH POC ABG pCO2 POC ABG pO2 ABG pO2 ABG HCO3 ABG O2 Saturation ABG Base Excess ABG Hemoglobin ABG Oxyhemoglobin VBG pH ABG Sodium ABG Potassium ABG Glucose Oxyhemoglobin Sodium Potassium Chloride Carbon Dioxide BUN Creatinine Glucose POC Glucose 156 H 177 H 195 H Lactic Acid Calcium Ferritin AST Alkaline Phosphatase Magnesium Lactate Dehydrogenase Total Creatine Kinase CK-MB (CK-2) C-Reactive Protein Total Protein Albumin Troponin T HDL Cholesterol Arterial Blood Glucose Urine WBC (Auto) Urine Creatinine Urine Total Protein Phenytoin Coronavirus (PCR) Crossmatch 06/21/20 06/21/20 06/22/20 17:04 21:51 05:06 WBC RBC Hgb Hct MCHC RDW Lymph % (Auto) [place] % (Auto) Eos % (Auto) Lymph # [place] # Lymph # (Auto) [place] # (Auto) Eos # (Auto) Seg Neutrophils % Seg Neuts % (Manual) Lymphocytes % (Manual) Seg Neutrophils # Seg Neutrophils # Man Lymphocytes # (Manual) Monocytes % (Manual) Eosinophils % (Manual) Monocytes # (Manual) Eosinophils # (Manual) D-Dimer Heparin Anti-Xa Level ABG pH POC ABG pCO2 POC ABG pO2 ABG pO2 ABG HCO3 ABG O2 Saturation ABG Base Excess ABG Hemoglobin ABG Oxyhemoglobin VBG pH ABG Sodium ABG Potassium ABG Glucose Oxyhemoglobin Sodium Potassium Chloride Carbon Dioxide BUN Creatinine Glucose POC Glucose 156 H 154 H 167 H Lactic Acid Calcium Ferritin AST Alkaline Phosphatase Magnesium Lactate Dehydrogenase Total Creatine Kinase CK-MB (CK-2) C-Reactive Protein Total Protein Albumin Troponin T HDL Cholesterol Arterial Blood Glucose Urine WBC (Auto) Urine Creatinine Urine Total Protein Phenytoin Coronavirus (PCR) Crossmatch 06/22/20 06/22/20 06/22/20 11:20 15:27 16:58 WBC RBC Hgb Hct MCHC RDW Lymph % (Auto) [place] % (Auto) Eos % (Auto) Lymph # [place] # Lymph # (Auto) [place] # (Auto) Eos # (Auto) Seg Neutrophils % Seg Neuts % (Manual) Lymphocytes % (Manual) Seg Neutrophils # Seg Neutrophils # Man Lymphocytes # (Manual) Monocytes % (Manual) Eosinophils % (Manual) Monocytes # (Manual) Eosinophils # (Manual) D-Dimer Heparin Anti-Xa Level ABG pH 7.206 L POC ABG pCO2 79.9 H POC ABG pO2 ABG pO2 ABG HCO3 ABG O2 Saturation ABG Base Excess ABG Hemoglobin 8.3 L ABG Oxyhemoglobin VBG pH ABG Sodium ABG Potassium ABG Glucose Oxyhemoglobin Sodium Potassium Chloride Carbon Dioxide BUN Creatinine Glucose POC Glucose 181 H 230 H Lactic Acid Calcium Ferritin AST Alkaline Phosphatase Magnesium Lactate Dehydrogenase Total Creatine Kinase CK-MB (CK-2) C-Reactive Protein Total Protein Albumin Troponin T HDL Cholesterol Arterial Blood Glucose Urine WBC (Auto) Urine Creatinine Urine Total Protein Phenytoin Coronavirus (PCR) Crossmatch 06/22/20 06/23/20 06/23/20 22:26 05:49 05:49 WBC RBC 2.58 L Hgb 7.4 L Hct 23.2 L MCHC RDW 17.0 H Lymph % (Auto) [place] % (Auto) 11.2 H Eos % (Auto) Lymph # 1.0 L [place] # Lymph # (Auto) [place] # (Auto) Eos # (Auto) Seg Neutrophils % Seg Neuts % (Manual) Lymphocytes % (Manual) Seg Neutrophils # Seg Neutrophils # Man Lymphocytes # (Manual) Monocytes % (Manual) Eosinophils % (Manual) Monocytes # (Manual) Eosinophils # (Manual) D-Dimer Heparin Anti-Xa Level ABG pH POC ABG pCO2 POC ABG pO2 ABG pO2 ABG HCO3 ABG O2 Saturation ABG Base Excess ABG Hemoglobin ABG Oxyhemoglobin VBG pH ABG Sodium ABG Potassium ABG Glucose Oxyhemoglobin Sodium Potassium Chloride Carbon Dioxide BUN 68 H Creatinine 2.4 H Glucose 198 H POC Glucose 195 H Lactic Acid Calcium Ferritin AST Alkaline Phosphatase Magnesium Lactate Dehydrogenase Total Creatine Kinase CK-MB (CK-2) C-Reactive Protein Total Protein Albumin Troponin T HDL Cholesterol Arterial Blood Glucose Urine WBC (Auto) Urine Creatinine Urine Total Protein Phenytoin Coronavirus (PCR) Crossmatch 06/23/20 06/23/20 06/23/20 05:50 12:29 12:34 WBC RBC Hgb Hct MCHC RDW Lymph % (Auto) [place] % (Auto) Eos % (Auto) Lymph # [place] # Lymph # (Auto) [place] # (Auto) Eos # (Auto) Seg Neutrophils % Seg Neuts % (Manual) Lymphocytes % (Manual) Seg Neutrophils # Seg Neutrophils # Man Lymphocytes # (Manual) Monocytes % (Manual) Eosinophils % (Manual) Monocytes # (Manual) Eosinophils # (Manual) D-Dimer Heparin Anti-Xa Level ABG pH POC ABG pCO2 54.7 H POC ABG pO2 68.8 L ABG pO2 ABG HCO3 ABG O2 Saturation ABG Base Excess ABG Hemoglobin 9.8 L ABG Oxyhemoglobin 92.6 L VBG pH ABG Sodium ABG Potassium ABG Glucose Oxyhemoglobin Sodium Potassium Chloride Carbon Dioxide BUN Creatinine Glucose POC Glucose 202 H 218 H Lactic Acid Calcium Ferritin AST Alkaline Phosphatase Magnesium Lactate Dehydrogenase Total Creatine Kinase CK-MB (CK-2) C-Reactive Protein Total Protein Albumin Troponin T HDL Cholesterol Arterial Blood Glucose Urine WBC (Auto) Urine Creatinine Urine Total Protein Phenytoin Coronavirus (PCR) Crossmatch 06/23/20 06/23/20 06/24/20 16:02 22:22 01:06 WBC RBC Hgb Hct MCHC RDW Lymph % (Auto) [place] % (Auto) Eos % (Auto) Lymph # [place] # Lymph # (Auto) [place] # (Auto) Eos # (Auto) Seg Neutrophils % Seg Neuts % (Manual) Lymphocytes % (Manual) Seg Neutrophils # Seg Neutrophils # Man Lymphocytes # (Manual) Monocytes % (Manual) Eosinophils % (Manual) Monocytes # (Manual) Eosinophils # (Manual) D-Dimer Heparin Anti-Xa Level ABG pH POC ABG pCO2 POC ABG pO2 ABG pO2 ABG HCO3 ABG O2 Saturation ABG Base Excess ABG Hemoglobin ABG Oxyhemoglobin VBG pH ABG Sodium ABG Potassium ABG Glucose Oxyhemoglobin Sodium Potassium Chloride Carbon Dioxide BUN Creatinine Glucose POC Glucose 190 H 166 H 171 H Lactic Acid Calcium Ferritin AST Alkaline Phosphatase Magnesium Lactate Dehydrogenase Total Creatine Kinase CK-MB (CK-2) C-Reactive Protein Total Protein Albumin Troponin T HDL Cholesterol Arterial Blood Glucose Urine WBC (Auto) Urine Creatinine Urine Total Protein Phenytoin Coronavirus (PCR) Crossmatch 06/24/20 06/24/20 06/24/20 04:48 05:35 11:48 WBC RBC Hgb Hct MCHC RDW Lymph % (Auto) [place] % (Auto) Eos % (Auto) Lymph # [place] # Lymph # (Auto) [place] # (Auto) Eos # (Auto) Seg Neutrophils % Seg Neuts % (Manual) Lymphocytes % (Manual) Seg Neutrophils # Seg Neutrophils # Man Lymphocytes # (Manual) Monocytes % (Manual) Eosinophils % (Manual) Monocytes # (Manual) Eosinophils # (Manual) D-Dimer Heparin Anti-Xa Level ABG pH POC ABG pCO2 POC ABG pO2 ABG pO2 ABG HCO3 ABG O2 Saturation ABG Base Excess ABG Hemoglobin ABG Oxyhemoglobin VBG pH ABG Sodium ABG Potassium ABG Glucose Oxyhemoglobin Sodium Potassium Chloride Carbon Dioxide BUN 75 H Creatinine 2.6 H Glucose 179 H POC Glucose 172 H 153 H Lactic Acid Calcium Ferritin AST Alkaline Phosphatase Magnesium Lactate Dehydrogenase Total Creatine Kinase CK-MB (CK-2) C-Reactive Protein Total Protein Albumin Troponin T HDL Cholesterol Arterial Blood Glucose Urine WBC (Auto) Urine Creatinine Urine Total Protein Phenytoin Coronavirus (PCR) Crossmatch 06/24/20 06/24/20 06/25/20 16:38 21:52 12:00 WBC RBC Hgb Hct MCHC RDW Lymph % (Auto) [place] % (Auto) Eos % (Auto) Lymph # [place] # Lymph # (Auto) [place] # (Auto) Eos # (Auto) Seg Neutrophils % Seg Neuts % (Manual) Lymphocytes % (Manual) Seg Neutrophils # Seg Neutrophils # Man Lymphocytes # (Manual) Monocytes % (Manual) Eosinophils % (Manual) Monocytes # (Manual) Eosinophils # (Manual) D-Dimer Heparin Anti-Xa Level ABG pH POC ABG pCO2 POC ABG pO2 ABG pO2 ABG HCO3 ABG O2 Saturation ABG Base Excess ABG Hemoglobin ABG Oxyhemoglobin VBG pH ABG Sodium ABG Potassium ABG Glucose Oxyhemoglobin Sodium Potassium Chloride Carbon Dioxide BUN Creatinine Glucose POC Glucose 123 H 115 H 203 H Lactic Acid Calcium Ferritin AST Alkaline Phosphatase Magnesium Lactate Dehydrogenase Total Creatine Kinase CK-MB (CK-2) C-Reactive Protein Total Protein Albumin Troponin T HDL Cholesterol Arterial Blood Glucose Urine WBC (Auto) Urine Creatinine Urine Total Protein Phenytoin Coronavirus (PCR) Crossmatch 06/25/20 06/25/20 06/25/20 15:43 16:37 23:02 WBC RBC Hgb Hct MCHC RDW Lymph % (Auto) [place] % (Auto) Eos % (Auto) Lymph # [place] # Lymph # (Auto) [place] # (Auto) Eos # (Auto) Seg Neutrophils % Seg Neuts % (Manual) Lymphocytes % (Manual) Seg Neutrophils # Seg Neutrophils # Man Lymphocytes # (Manual) Monocytes % (Manual) Eosinophils % (Manual) Monocytes # (Manual) Eosinophils # (Manual) D-Dimer Heparin Anti-Xa Level ABG pH POC ABG pCO2 POC ABG pO2 ABG pO2 ABG HCO3 ABG O2 Saturation ABG Base Excess ABG Hemoglobin ABG Oxyhemoglobin VBG pH ABG Sodium ABG Potassium ABG Glucose Oxyhemoglobin Sodium Potassium Chloride Carbon Dioxide BUN 71 H Creatinine 1.8 H Glucose 170 H POC Glucose 191 H 126 H Lactic Acid Calcium 8.2 L Ferritin AST Alkaline Phosphatase Magnesium Lactate Dehydrogenase Total Creatine Kinase CK-MB (CK-2) C-Reactive Protein Total Protein Albumin Troponin T HDL Cholesterol Arterial Blood Glucose Urine WBC (Auto) Urine Creatinine Urine Total Protein Phenytoin Coronavirus (PCR) Crossmatch 06/26/20 06/26/20 06/26/20 06:34 06:34 09:27 WBC RBC 2.41 L Hgb 6.9 L Hct 21.5 L MCHC RDW 16.7 H Lymph % (Auto) 10.9 L [place] % (Auto) 9.6 H Eos % (Auto) Lymph # 0.7 L [place] # Lymph # (Auto) [place] # (Auto) Eos # (Auto) Seg Neutrophils % 75.4 H Seg Neuts % (Manual) Lymphocytes % (Manual) Seg Neutrophils # Seg Neutrophils # Man Lymphocytes # (Manual) Monocytes % (Manual) Eosinophils % (Manual) Monocytes # (Manual) Eosinophils # (Manual) D-Dimer Heparin Anti-Xa Level ABG pH POC ABG pCO2 POC ABG pO2 ABG pO2 ABG HCO3 ABG O2 Saturation ABG Base Excess ABG Hemoglobin ABG Oxyhemoglobin VBG pH ABG Sodium ABG Potassium ABG Glucose Oxyhemoglobin Sodium Potassium Chloride Carbon Dioxide BUN 77 H Creatinine 1.9 H Glucose 190 H POC Glucose Lactic Acid Calcium Ferritin AST Alkaline Phosphatase Magnesium Lactate Dehydrogenase Total Creatine Kinase CK-MB (CK-2) C-Reactive Protein Total Protein Albumin Troponin T HDL Cholesterol Arterial Blood Glucose Urine WBC (Auto) Urine Creatinine Urine Total Protein Phenytoin Coronavirus (PCR) Crossmatch See Detail 06/26/20 06/26/20 06/26/20 12:15 16:28 17:28 WBC RBC Hgb Hct MCHC RDW Lymph % (Auto) [place] % (Auto) Eos % (Auto) Lymph # [place] # Lymph # (Auto) [place] # (Auto) Eos # (Auto) Seg Neutrophils % Seg Neuts % (Manual) Lymphocytes % (Manual) Seg Neutrophils # Seg Neutrophils # Man Lymphocytes # (Manual) Monocytes % (Manual) Eosinophils % (Manual) Monocytes # (Manual) Eosinophils # (Manual) D-Dimer Heparin Anti-Xa Level ABG pH POC ABG pCO2 POC ABG pO2 ABG pO2 ABG HCO3 ABG O2 Saturation ABG Base Excess ABG Hemoglobin ABG Oxyhemoglobin VBG pH ABG Sodium ABG Potassium ABG Glucose Oxyhemoglobin Sodium Potassium Chloride Carbon Dioxide BUN Creatinine Glucose POC Glucose 187 H 149 H 189 H Lactic Acid Calcium Ferritin AST Alkaline Phosphatase Magnesium Lactate Dehydrogenase Total Creatine Kinase CK-MB (CK-2) C-Reactive Protein Total Protein Albumin Troponin T HDL Cholesterol Arterial Blood Glucose Urine WBC (Auto) Urine Creatinine Urine Total Protein Phenytoin Coronavirus (PCR) Crossmatch 06/26/20 06/26/20 06/26/20 18:30 18:30 18:30 WBC RBC 2.87 L Hgb 8.2 L Hct 25.9 L MCHC RDW 17.8 H Lymph % (Auto) [place] % (Auto) Eos % (Auto) Lymph # [place] # Lymph # (Auto) [place] # (Auto) Eos # (Auto) Seg Neutrophils % Seg Neuts % (Manual) 83.0 H Lymphocytes % (Manual) 8.0 L Seg Neutrophils # Seg Neutrophils # Man Lymphocytes # (Manual) 0.6 L Monocytes % (Manual) Eosinophils % (Manual) Monocytes # (Manual) Eosinophils # (Manual) D-Dimer Heparin Anti-Xa Level ABG pH POC ABG pCO2 POC ABG pO2 ABG pO2 ABG HCO3 ABG O2 Saturation ABG Base Excess ABG Hemoglobin ABG Oxyhemoglobin VBG pH ABG Sodium ABG Potassium ABG Glucose Oxyhemoglobin Sodium Potassium Chloride Carbon Dioxide BUN 80 H Creatinine 2.1 H Glucose 260 H POC Glucose Lactic Acid 4.30 H* Calcium 8.3 L Ferritin AST Alkaline Phosphatase Magnesium Lactate Dehydrogenase Total Creatine Kinase CK-MB (CK-2) C-Reactive Protein Total Protein Albumin Troponin T HDL Cholesterol Arterial Blood Glucose Urine WBC (Auto) Urine Creatinine Urine Total Protein Phenytoin Coronavirus (PCR) Crossmatch 06/26/20 06/27/20 06/27/20 18:50 01:00 04:29 WBC RBC Hgb Hct MCHC RDW Lymph % (Auto) [place] % (Auto) Eos % (Auto) Lymph # [place] # Lymph # (Auto) [place] # (Auto) Eos # (Auto) Seg Neutrophils % Seg Neuts % (Manual) Lymphocytes % (Manual) Seg Neutrophils # Seg Neutrophils # Man Lymphocytes # (Manual) Monocytes % (Manual) Eosinophils % (Manual) Monocytes # (Manual) Eosinophils # (Manual) D-Dimer Heparin Anti-Xa Level ABG pH 7.296 L POC ABG pCO2 POC ABG pO2 ABG pO2 116.5 H 200.5 H ABG HCO3 28.4 H ABG O2 Saturation 99.3 H ABG Base Excess 3.7 H ABG Hemoglobin 5.6 L ABG Oxyhemoglobin VBG pH ABG Sodium ABG Potassium ABG Glucose Oxyhemoglobin Sodium Potassium Chloride Carbon Dioxide BUN Creatinine Glucose POC Glucose 123 H Lactic Acid Calcium Ferritin AST Alkaline Phosphatase Magnesium Lactate Dehydrogenase Total Creatine Kinase CK-MB (CK-2) C-Reactive Protein Total Protein Albumin Troponin T HDL Cholesterol Arterial Blood Glucose Urine WBC (Auto) Urine Creatinine Urine Total Protein Phenytoin Coronavirus (PCR) Crossmatch 06/27/20 06/27/20 06/27/20 05:00 05:00 05:00 WBC RBC 2.75 L Hgb 7.9 L Hct 24.3 L MCHC RDW 17.1 H Lymph % (Auto) 8.5 L [place] % (Auto) 12.6 H Eos % (Auto) Lymph # 0.7 L [place] # 1.0 H Lymph # (Auto) [place] # (Auto) Eos # (Auto) Seg Neutrophils % 77.5 H Seg Neuts % (Manual) Lymphocytes % (Manual) Seg Neutrophils # Seg Neutrophils # Man Lymphocytes # (Manual) Monocytes % (Manual) Eosinophils % (Manual) Monocytes # (Manual) Eosinophils # (Manual) D-Dimer Heparin Anti-Xa Level ABG pH POC ABG pCO2 POC ABG pO2 ABG pO2 ABG HCO3 ABG O2 Saturation ABG Base Excess ABG Hemoglobin ABG Oxyhemoglobin VBG pH ABG Sodium ABG Potassium ABG Glucose Oxyhemoglobin Sodium Potassium Chloride Carbon Dioxide BUN 80 H Creatinine 2.0 H Glucose 129 H POC Glucose Lactic Acid 0.60 L Calcium 7.9 L Ferritin AST Alkaline Phosphatase Magnesium Lactate Dehydrogenase Total Creatine Kinase CK-MB (CK-2) C-Reactive Protein Total Protein Albumin Troponin T HDL Cholesterol Arterial Blood Glucose Urine WBC (Auto) Urine Creatinine Urine Total Protein Phenytoin Coronavirus (PCR) Crossmatch 06/27/20 06/27/20 06/27/20 05:23 13:46 17:25 WBC RBC Hgb Hct MCHC RDW Lymph % (Auto) [place] % (Auto) Eos % (Auto) Lymph # [place] # Lymph # (Auto) [place] # (Auto) Eos # (Auto) Seg Neutrophils % Seg Neuts % (Manual) Lymphocytes % (Manual) Seg Neutrophils # Seg Neutrophils # Man Lymphocytes # (Manual) Monocytes % (Manual) Eosinophils % (Manual) Monocytes # (Manual) Eosinophils # (Manual) D-Dimer Heparin Anti-Xa Level ABG pH POC ABG pCO2 POC ABG pO2 ABG pO2 ABG HCO3 ABG O2 Saturation ABG Base Excess ABG Hemoglobin ABG Oxyhemoglobin VBG pH ABG Sodium ABG Potassium ABG Glucose Oxyhemoglobin Sodium Potassium Chloride Carbon Dioxide BUN Creatinine Glucose POC Glucose 109 H 158 H 162 H Lactic Acid Calcium Ferritin AST Alkaline Phosphatase Magnesium Lactate Dehydrogenase Total Creatine Kinase CK-MB (CK-2) C-Reactive Protein Total Protein Albumin Troponin T HDL Cholesterol Arterial Blood Glucose Urine WBC (Auto) Urine Creatinine Urine Total Protein Phenytoin Coronavirus (PCR) Crossmatch 06/27/20 06/27/20 06/28/20 18:43 23:46 04:05 WBC RBC Hgb 7.7 L Hct 22.1 L MCHC RDW Lymph % (Auto) [place] % (Auto) Eos % (Auto) Lymph # [place] # Lymph # (Auto) [place] # (Auto) Eos # (Auto) Seg Neutrophils % Seg Neuts % (Manual) Lymphocytes % (Manual) Seg Neutrophils # Seg Neutrophils # Man Lymphocytes # (Manual) Monocytes % (Manual) Eosinophils % (Manual) Monocytes # (Manual) Eosinophils # (Manual) D-Dimer Heparin Anti-Xa Level ABG pH POC ABG pCO2 POC ABG pO2 ABG pO2 102.7 H ABG HCO3 28.7 H ABG O2 Saturation ABG Base Excess 3.7 H ABG Hemoglobin ABG Oxyhemoglobin VBG pH ABG Sodium ABG Potassium ABG Glucose Oxyhemoglobin Sodium Potassium Chloride Carbon Dioxide BUN Creatinine Glucose POC Glucose 142 H Lactic Acid Calcium Ferritin AST Alkaline Phosphatase Magnesium Lactate Dehydrogenase Total Creatine Kinase CK-MB (CK-2) C-Reactive Protein Total Protein Albumin Troponin T HDL Cholesterol Arterial Blood Glucose Urine WBC (Auto) Urine Creatinine Urine Total Protein Phenytoin Coronavirus (PCR) Crossmatch 06/28/20 06/28/20 06/28/20 09:47 09:47 12:02 WBC RBC 2.53 L Hgb 7.4 L Hct 22.2 L MCHC RDW 16.8 H Lymph % (Auto) [place] % (Auto) 13.5 H Eos % (Auto) Lymph # 1.1 L [place] # 1.0 H Lymph # (Auto) [place] # (Auto) Eos # (Auto) Seg Neutrophils % Seg Neuts % (Manual) Lymphocytes % (Manual) Seg Neutrophils # Seg Neutrophils # Man Lymphocytes # (Manual) Monocytes % (Manual) Eosinophils % (Manual) Monocytes # (Manual) Eosinophils # (Manual) D-Dimer Heparin Anti-Xa Level ABG pH POC ABG pCO2 POC ABG pO2 ABG pO2 ABG HCO3 ABG O2 Saturation ABG Base Excess ABG Hemoglobin ABG Oxyhemoglobin VBG pH ABG Sodium ABG Potassium ABG Glucose Oxyhemoglobin Sodium Potassium Chloride Carbon Dioxide BUN 80 H Creatinine 1.5 H Glucose 139 H POC Glucose 169 H Lactic Acid Calcium 7.9 L Ferritin AST Alkaline Phosphatase Magnesium Lactate Dehydrogenase Total Creatine Kinase CK-MB (CK-2) C-Reactive Protein Total Protein 5.0 L Albumin 2.1 L Troponin T HDL Cholesterol Arterial Blood Glucose Urine WBC (Auto) Urine Creatinine Urine Total Protein Phenytoin Coronavirus (PCR) Crossmatch 06/28/20 06/28/20 06/28/20 12:30 12:30 17:24 WBC RBC 2.38 L Hgb 7.3 L Hct 20.9 L MCHC 35 H RDW 16.7 H Lymph % (Auto) [place] % (Auto) Eos % (Auto) Lymph # [place] # Lymph # (Auto) [place] # (Auto) Eos # (Auto) Seg Neutrophils % Seg Neuts % (Manual) Lymphocytes % (Manual) Seg Neutrophils # Seg Neutrophils # Man Lymphocytes # (Manual) Monocytes % (Manual) Eosinophils % (Manual) Monocytes # (Manual) Eosinophils # (Manual) D-Dimer Heparin Anti-Xa Level ABG pH POC ABG pCO2 POC ABG pO2 ABG pO2 ABG HCO3 ABG O2 Saturation ABG Base Excess ABG Hemoglobin ABG Oxyhemoglobin VBG pH ABG Sodium ABG Potassium ABG Glucose Oxyhemoglobin Sodium Potassium Chloride Carbon Dioxide BUN 74 H Creatinine 1.5 H Glucose 143 H POC Glucose 173 H Lactic Acid Calcium 7.5 L Ferritin AST Alkaline Phosphatase Magnesium Lactate Dehydrogenase Total Creatine Kinase CK-MB (CK-2) C-Reactive Protein Total Protein Albumin Troponin T HDL Cholesterol Arterial Blood Glucose Urine WBC (Auto) Urine Creatinine Urine Total Protein Phenytoin Coronavirus (PCR) Crossmatch 06/29/20 06/29/20 06/29/20 00:02 03:54 04:38 WBC RBC 2.55 L Hgb 7.3 L Hct 22.4 L MCHC RDW 16.4 H Lymph % (Auto) 13.3 L [place] % (Auto) 12.5 H Eos % (Auto) Lymph # 1.1 L [place] # 1.0 H Lymph # (Auto) [place] # (Auto) Eos # (Auto) Seg Neutrophils % Seg Neuts % (Manual) Lymphocytes % (Manual) Seg Neutrophils # Seg Neutrophils # Man Lymphocytes # (Manual) Monocytes % (Manual) Eosinophils % (Manual) Monocytes # (Manual) Eosinophils # (Manual) D-Dimer Heparin Anti-Xa Level ABG pH POC ABG pCO2 POC ABG pO2 ABG pO2 ABG HCO3 26.9 H ABG O2 Saturation ABG Base Excess ABG Hemoglobin 6.9 L ABG Oxyhemoglobin VBG pH ABG Sodium ABG Potassium ABG Glucose Oxyhemoglobin Sodium Potassium Chloride Carbon Dioxide BUN Creatinine Glucose POC Glucose 142 H Lactic Acid Calcium Ferritin AST Alkaline Phosphatase Magnesium Lactate Dehydrogenase Total Creatine Kinase CK-MB (CK-2) C-Reactive Protein Total Protein Albumin Troponin T HDL Cholesterol Arterial Blood Glucose Urine WBC (Auto) Urine Creatinine Urine Total Protein Phenytoin Coronavirus (PCR) Crossmatch 06/29/20 06/29/20 06/29/20 04:38 05:38 12:25 WBC RBC Hgb Hct MCHC RDW Lymph % (Auto) [place] % (Auto) Eos % (Auto) Lymph # [place] # Lymph # (Auto) [place] # (Auto) Eos # (Auto) Seg Neutrophils % Seg Neuts % (Manual) Lymphocytes % (Manual) Seg Neutrophils # Seg Neutrophils # Man Lymphocytes # (Manual) Monocytes % (Manual) Eosinophils % (Manual) Monocytes # (Manual) Eosinophils # (Manual) D-Dimer Heparin Anti-Xa Level ABG pH POC ABG pCO2 POC ABG pO2 ABG pO2 ABG HCO3 ABG O2 Saturation ABG Base Excess ABG Hemoglobin ABG Oxyhemoglobin VBG pH ABG Sodium ABG Potassium ABG Glucose Oxyhemoglobin Sodium Potassium Chloride 107.8 H Carbon Dioxide BUN 72 H Creatinine 1.4 H Glucose 127 H POC Glucose 122 H 138 H Lactic Acid Calcium 7.4 L Ferritin AST Alkaline Phosphatase Magnesium Lactate Dehydrogenase Total Creatine Kinase CK-MB (CK-2) C-Reactive Protein Total Protein Albumin Troponin T HDL Cholesterol Arterial Blood Glucose Urine WBC (Auto) Urine Creatinine Urine Total Protein Phenytoin Coronavirus (PCR) Crossmatch 06/29/20 06/29/20 06/29/20 14:45 14:45 14:45 WBC RBC Hgb Hct MCHC RDW Lymph % (Auto) [place] % (Auto) Eos % (Auto) Lymph # [place] # Lymph # (Auto) [place] # (Auto) Eos # (Auto) Seg Neutrophils % Seg Neuts % (Manual) Lymphocytes % (Manual) Seg Neutrophils # Seg Neutrophils # Man Lymphocytes # (Manual) Monocytes % (Manual) Eosinophils % (Manual) Monocytes # (Manual) Eosinophils # (Manual) D-Dimer 2310.15 H Heparin Anti-Xa Level ABG pH POC ABG pCO2 POC ABG pO2 ABG pO2 ABG HCO3 ABG O2 Saturation ABG Base Excess ABG Hemoglobin ABG Oxyhemoglobin VBG pH ABG Sodium ABG Potassium ABG Glucose Oxyhemoglobin Sodium Potassium Chloride Carbon Dioxide BUN Creatinine Glucose POC Glucose Lactic Acid Calcium Ferritin 223.6 H AST Alkaline Phosphatase Magnesium Lactate Dehydrogenase 367 H Total Creatine Kinase CK-MB (CK-2) C-Reactive Protein 3.60 H Total Protein Albumin Troponin T HDL Cholesterol Arterial Blood Glucose Urine WBC (Auto) Urine Creatinine Urine Total Protein Phenytoin Coronavirus (PCR) Crossmatch 06/29/20 06/29/20 06/29/20 18:27 23:35 Unknown WBC RBC Hgb Hct MCHC RDW Lymph % (Auto) [place] % (Auto) Eos % (Auto) Lymph # [place] # Lymph # (Auto) [place] # (Auto) Eos # (Auto) Seg Neutrophils % Seg Neuts % (Manual) Lymphocytes % (Manual) Seg Neutrophils # Seg Neutrophils # Man Lymphocytes # (Manual) Monocytes % (Manual) Eosinophils % (Manual) Monocytes # (Manual) Eosinophils # (Manual) D-Dimer Heparin Anti-Xa Level ABG pH POC ABG pCO2 POC ABG pO2 ABG pO2 ABG HCO3 ABG O2 Saturation ABG Base Excess ABG Hemoglobin ABG Oxyhemoglobin VBG pH ABG Sodium ABG Potassium ABG Glucose Oxyhemoglobin Sodium Potassium Chloride Carbon Dioxide BUN Creatinine Glucose POC Glucose 112 H 140 H Lactic Acid Calcium Ferritin AST Alkaline Phosphatase Magnesium Lactate Dehydrogenase Total Creatine Kinase CK-MB (CK-2) C-Reactive Protein Total Protein Albumin Troponin T HDL Cholesterol Arterial Blood Glucose Urine WBC (Auto) Urine Creatinine Urine Total Protein Phenytoin Coronavirus (PCR) Positive A Crossmatch 06/30/20 06/30/20 06/30/20 04:10 04:10 06:09 WBC RBC 2.44 L Hgb 7.1 L Hct 21.5 L MCHC RDW 16.6 H Lymph % (Auto) 11.0 L [place] % (Auto) 10.8 H Eos % (Auto) Lymph # 0.9 L [place] # 0.9 H Lymph # (Auto) [place] # (Auto) Eos # (Auto) Seg Neutrophils % 73.7 H Seg Neuts % (Manual) Lymphocytes % (Manual) Seg Neutrophils # Seg Neutrophils # Man Lymphocytes # (Manual) Monocytes % (Manual) Eosinophils % (Manual) Monocytes # (Manual) Eosinophils # (Manual) D-Dimer Heparin Anti-Xa Level ABG pH POC ABG pCO2 POC ABG pO2 ABG pO2 ABG HCO3 ABG O2 Saturation ABG Base Excess ABG Hemoglobin ABG Oxyhemoglobin VBG pH ABG Sodium ABG Potassium ABG Glucose Oxyhemoglobin Sodium Potassium Chloride 109.1 H Carbon Dioxide BUN 74 H Creatinine 1.3 H Glucose 191 H POC Glucose 187 H Lactic Acid Calcium 7.8 L Ferritin AST Alkaline Phosphatase Magnesium Lactate Dehydrogenase Total Creatine Kinase CK-MB (CK-2) C-Reactive Protein Total Protein Albumin Troponin T HDL Cholesterol Arterial Blood Glucose Urine WBC (Auto) Urine Creatinine Urine Total Protein Phenytoin Coronavirus (PCR) Crossmatch 06/30/20 06/30/20 06/30/20 12:04 17:43 23:41 WBC RBC Hgb Hct MCHC RDW Lymph % (Auto) [place] % (Auto) Eos % (Auto) Lymph # [place] # Lymph # (Auto) [place] # (Auto) Eos # (Auto) Seg Neutrophils % Seg Neuts % (Manual) Lymphocytes % (Manual) Seg Neutrophils # Seg Neutrophils # Man Lymphocytes # (Manual) Monocytes % (Manual) Eosinophils % (Manual) Monocytes # (Manual) Eosinophils # (Manual) D-Dimer Heparin Anti-Xa Level ABG pH POC ABG pCO2 POC ABG pO2 ABG pO2 ABG HCO3 ABG O2 Saturation ABG Base Excess ABG Hemoglobin ABG Oxyhemoglobin VBG pH ABG Sodium ABG Potassium ABG Glucose Oxyhemoglobin Sodium Potassium Chloride Carbon Dioxide BUN Creatinine Glucose POC Glucose 112 H 177 H 143 H Lactic Acid Calcium Ferritin AST Alkaline Phosphatase Magnesium Lactate Dehydrogenase Total Creatine Kinase CK-MB (CK-2) C-Reactive Protein Total Protein Albumin Troponin T HDL Cholesterol Arterial Blood Glucose Urine WBC (Auto) Urine Creatinine Urine Total Protein Phenytoin Coronavirus (PCR) Crossmatch 07/01/20 07/01/20 07/01/20 05:02 05:52 06:01 WBC 12.6 H RBC 2.95 L Hgb 8.2 L Hct 26.0 L MCHC RDW 16.9 H Lymph % (Auto) [place] % (Auto) Eos % (Auto) Lymph # [place] # Lymph # (Auto) [place] # (Auto) Eos # (Auto) Seg Neutrophils % Seg Neuts % (Manual) Lymphocytes % (Manual) Seg Neutrophils # Seg Neutrophils # Man 8.6 H Lymphocytes # (Manual) Monocytes % (Manual) Eosinophils % (Manual) 5.0 H Monocytes # (Manual) Eosinophils # (Manual) 0.6 H D-Dimer Heparin Anti-Xa Level ABG pH POC ABG pCO2 POC ABG pO2 ABG pO2 ABG HCO3 ABG O2 Saturation ABG Base Excess ABG Hemoglobin 8.2 L ABG Oxyhemoglobin VBG pH ABG Sodium ABG Potassium ABG Glucose Oxyhemoglobin Sodium Potassium Chloride Carbon Dioxide BUN Creatinine Glucose POC Glucose 129 H Lactic Acid Calcium Ferritin AST Alkaline Phosphatase Magnesium Lactate Dehydrogenase Total Creatine Kinase CK-MB (CK-2) C-Reactive Protein Total Protein Albumin Troponin T HDL Cholesterol Arterial Blood Glucose Urine WBC (Auto) Urine Creatinine Urine Total Protein Phenytoin Coronavirus (PCR) Crossmatch 07/01/20 07/01/20 07/01/20 06:01 06:01 06:08 WBC RBC Hgb Hct MCHC RDW Lymph % (Auto) [place] % (Auto) Eos % (Auto) Lymph # [place] # Lymph # (Auto) [place] # (Auto) Eos # (Auto) Seg Neutrophils % Seg Neuts % (Manual) Lymphocytes % (Manual) Seg Neutrophils # Seg Neutrophils # Man Lymphocytes # (Manual) Monocytes % (Manual) Eosinophils % (Manual) Monocytes # (Manual) Eosinophils # (Manual) D-Dimer Heparin Anti-Xa Level ABG pH POC ABG pCO2 POC ABG pO2 ABG pO2 ABG HCO3 ABG O2 Saturation ABG Base Excess ABG Hemoglobin ABG Oxyhemoglobin VBG pH ABG Sodium ABG Potassium ABG Glucose Oxyhemoglobin Sodium 147 H Potassium Chloride 108.0 H Carbon Dioxide BUN 71 H Creatinine 1.3 H Glucose 193 H POC Glucose 192 H Lactic Acid Calcium 8.1 L Ferritin AST Alkaline Phosphatase Magnesium Lactate Dehydrogenase Total Creatine Kinase 300 H CK-MB (CK-2) C-Reactive Protein Total Protein Albumin Troponin T 0.067 H HDL Cholesterol 61 H Arterial Blood Glucose Urine WBC (Auto) Urine Creatinine Urine Total Protein Phenytoin Coronavirus (PCR) Crossmatch 07/01/20 07/01/20 07/02/20 12:23 17:40 00:18 WBC RBC Hgb Hct MCHC RDW Lymph % (Auto) [place] % (Auto) Eos % (Auto) Lymph # [place] # Lymph # (Auto) [place] # (Auto) Eos # (Auto) Seg Neutrophils % Seg Neuts % (Manual) Lymphocytes % (Manual) Seg Neutrophils # Seg Neutrophils # Man Lymphocytes # (Manual) Monocytes % (Manual) Eosinophils % (Manual) Monocytes # (Manual) Eosinophils # (Manual) D-Dimer Heparin Anti-Xa Level ABG pH POC ABG pCO2 POC ABG pO2 ABG pO2 ABG HCO3 ABG O2 Saturation ABG Base Excess ABG Hemoglobin ABG Oxyhemoglobin VBG pH ABG Sodium ABG Potassium ABG Glucose Oxyhemoglobin Sodium Potassium Chloride Carbon Dioxide BUN Creatinine Glucose POC Glucose 111 H 135 H 145 H Lactic Acid Calcium Ferritin AST Alkaline Phosphatase Magnesium Lactate Dehydrogenase Total Creatine Kinase CK-MB (CK-2) C-Reactive Protein Total Protein Albumin Troponin T HDL Cholesterol Arterial Blood Glucose Urine WBC (Auto) Urine Creatinine Urine Total Protein Phenytoin Coronavirus (PCR) Crossmatch 07/02/20 07/02/20 07/02/20 04:11 04:23 05:54 WBC RBC Hgb Hct MCHC RDW Lymph % (Auto) [place] % (Auto) Eos % (Auto) Lymph # [place] # Lymph # (Auto) [place] # (Auto) Eos # (Auto) Seg Neutrophils % Seg Neuts % (Manual) Lymphocytes % (Manual) Seg Neutrophils # Seg Neutrophils # Man Lymphocytes # (Manual) Monocytes % (Manual) Eosinophils % (Manual) Monocytes # (Manual) Eosinophils # (Manual) D-Dimer Heparin Anti-Xa Level ABG pH POC ABG pCO2 POC ABG pO2 ABG pO2 ABG HCO3 ABG O2 Saturation ABG Base Excess ABG Hemoglobin 5.4 L ABG Oxyhemoglobin VBG pH ABG Sodium ABG Potassium ABG Glucose Oxyhemoglobin Sodium Potassium Chloride 108.6 H Carbon Dioxide BUN 72 H Creatinine Glucose 112 H POC Glucose 137 H Lactic Acid Calcium 7.8 L Ferritin AST Alkaline Phosphatase Magnesium Lactate Dehydrogenase Total Creatine Kinase CK-MB (CK-2) C-Reactive Protein Total Protein Albumin Troponin T HDL Cholesterol Arterial Blood Glucose Urine WBC (Auto) Urine Creatinine Urine Total Protein Phenytoin Coronavirus (PCR) Crossmatch 07/02/20 07/02/20 07/02/20 11:38 18:04 23:59 WBC RBC Hgb Hct MCHC RDW Lymph % (Auto) [place] % (Auto) Eos % (Auto) Lymph # [place] # Lymph # (Auto) [place] # (Auto) Eos # (Auto) Seg Neutrophils % Seg Neuts % (Manual) Lymphocytes % (Manual) Seg Neutrophils # Seg Neutrophils # Man Lymphocytes # (Manual) Monocytes % (Manual) Eosinophils % (Manual) Monocytes # (Manual) Eosinophils # (Manual) D-Dimer Heparin Anti-Xa Level ABG pH POC ABG pCO2 POC ABG pO2 ABG pO2 ABG HCO3 ABG O2 Saturation ABG Base Excess ABG Hemoglobin ABG Oxyhemoglobin VBG pH ABG Sodium ABG Potassium ABG Glucose Oxyhemoglobin Sodium Potassium Chloride Carbon Dioxide BUN Creatinine Glucose POC Glucose 128 H 135 H 156 H Lactic Acid Calcium Ferritin AST Alkaline Phosphatase Magnesium Lactate Dehydrogenase Total Creatine Kinase CK-MB (CK-2) C-Reactive Protein Total Protein Albumin Troponin T HDL Cholesterol Arterial Blood Glucose Urine WBC (Auto) Urine Creatinine Urine Total Protein Phenytoin Coronavirus (PCR) Crossmatch 07/03/20 07/03/20 07/03/20 03:49 06:00 11:31 WBC RBC Hgb Hct MCHC RDW Lymph % (Auto) [place] % (Auto) Eos % (Auto) Lymph # [place] # Lymph # (Auto) [place] # (Auto) Eos # (Auto) Seg Neutrophils % Seg Neuts % (Manual) Lymphocytes % (Manual) Seg Neutrophils # Seg Neutrophils # Man Lymphocytes # (Manual) Monocytes % (Manual) Eosinophils % (Manual) Monocytes # (Manual) Eosinophils # (Manual) D-Dimer Heparin Anti-Xa Level ABG pH POC ABG pCO2 POC ABG pO2 ABG pO2 121.0 H ABG HCO3 ABG O2 Saturation ABG Base Excess ABG Hemoglobin 8.5 L ABG Oxyhemoglobin VBG pH ABG Sodium ABG Potassium ABG Glucose Oxyhemoglobin Sodium Potassium Chloride Carbon Dioxide BUN Creatinine Glucose POC Glucose 135 H 141 H Lactic Acid Calcium Ferritin AST Alkaline Phosphatase Magnesium Lactate Dehydrogenase Total Creatine Kinase CK-MB (CK-2) C-Reactive Protein Total Protein Albumin Troponin T HDL Cholesterol Arterial Blood Glucose Urine WBC (Auto) Urine Creatinine Urine Total Protein Phenytoin Coronavirus (PCR) Crossmatch 07/03/20 07/03/20 07/03/20 16:00 16:07 17:40 WBC RBC Hgb Hct MCHC RDW Lymph % (Auto) [place] % (Auto) Eos % (Auto) Lymph # [place] # Lymph # (Auto) [place] # (Auto) Eos # (Auto) Seg Neutrophils % Seg Neuts % (Manual) Lymphocytes % (Manual) Seg Neutrophils # Seg Neutrophils # Man Lymphocytes # (Manual) Monocytes % (Manual) Eosinophils % (Manual) Monocytes # (Manual) Eosinophils # (Manual) D-Dimer Heparin Anti-Xa Level ABG pH 7.271 L POC ABG pCO2 POC ABG pO2 ABG pO2 126.9 H ABG HCO3 ABG O2 Saturation ABG Base Excess ABG Hemoglobin 8.2 L 8.1 L ABG Oxyhemoglobin VBG pH ABG Sodium 130.3 L ABG Potassium 4.9 H ABG Glucose 163 H Oxyhemoglobin Sodium Potassium Chloride Carbon Dioxide BUN Creatinine Glucose POC Glucose 120 H Lactic Acid Calcium Ferritin AST Alkaline Phosphatase Magnesium Lactate Dehydrogenase Total Creatine Kinase CK-MB (CK-2) C-Reactive Protein Total Protein Albumin Troponin T HDL Cholesterol Arterial Blood Glucose 163 H Urine WBC (Auto) Urine Creatinine Urine Total Protein Phenytoin Coronavirus (PCR) Crossmatch 07/04/20 07/04/20 07/04/20 05:49 11:54 18:00 WBC RBC Hgb Hct MCHC RDW Lymph % (Auto) [place] % (Auto) Eos % (Auto) Lymph # [place] # Lymph # (Auto) [place] # (Auto) Eos # (Auto) Seg Neutrophils % Seg Neuts % (Manual) Lymphocytes % (Manual) Seg Neutrophils # Seg Neutrophils # Man Lymphocytes # (Manual) Monocytes % (Manual) Eosinophils % (Manual) Monocytes # (Manual) Eosinophils # (Manual) D-Dimer Heparin Anti-Xa Level ABG pH POC ABG pCO2 POC ABG pO2 ABG pO2 ABG HCO3 ABG O2 Saturation ABG Base Excess ABG Hemoglobin ABG Oxyhemoglobin VBG pH ABG Sodium ABG Potassium ABG Glucose Oxyhemoglobin Sodium Potassium Chloride Carbon Dioxide BUN Creatinine Glucose POC Glucose 128 H 168 H 133 H Lactic Acid Calcium Ferritin AST Alkaline Phosphatase Magnesium Lactate Dehydrogenase Total Creatine Kinase CK-MB (CK-2) C-Reactive Protein Total Protein Albumin Troponin T HDL Cholesterol Arterial Blood Glucose Urine WBC (Auto) Urine Creatinine Urine Total Protein Phenytoin Coronavirus (PCR) Crossmatch 07/05/20 07/05/20 07/05/20 00:07 01:12 02:30 WBC RBC 2.35 L Hgb 6.9 L Hct 21.1 L MCHC RDW 16.8 H Lymph % (Auto) [place] % (Auto) Eos % (Auto) Lymph # [place] # Lymph # (Auto) [place] # (Auto) Eos # (Auto) Seg Neutrophils % Seg Neuts % (Manual) 74.0 H Lymphocytes % (Manual) 12.0 L Seg Neutrophils # Seg Neutrophils # Man 8.0 H Lymphocytes # (Manual) Monocytes % (Manual) 9.0 H Eosinophils % (Manual) Monocytes # (Manual) 1.0 H Eosinophils # (Manual) D-Dimer Heparin Anti-Xa Level ABG pH POC ABG pCO2 POC ABG pO2 ABG pO2 ABG HCO3 ABG O2 Saturation ABG Base Excess ABG Hemoglobin ABG Oxyhemoglobin VBG pH ABG Sodium ABG Potassium ABG Glucose Oxyhemoglobin Sodium Potassium Chloride Carbon Dioxide BUN Creatinine Glucose POC Glucose 121 H Lactic Acid Calcium Ferritin AST Alkaline Phosphatase Magnesium Lactate Dehydrogenase Total Creatine Kinase CK-MB (CK-2) C-Reactive Protein Total Protein Albumin Troponin T HDL Cholesterol Arterial Blood Glucose Urine WBC (Auto) Urine Creatinine Urine Total Protein Phenytoin Coronavirus (PCR) Crossmatch See Detail 07/05/20 07/05/20 07/05/20 12:09 13:05 18:04 WBC RBC Hgb Hct MCHC RDW Lymph % (Auto) [place] % (Auto) Eos % (Auto) Lymph # [place] # Lymph # (Auto) [place] # (Auto) Eos # (Auto) Seg Neutrophils % Seg Neuts % (Manual) Lymphocytes % (Manual) Seg Neutrophils # Seg Neutrophils # Man Lymphocytes # (Manual) Monocytes % (Manual) Eosinophils % (Manual) Monocytes # (Manual) Eosinophils # (Manual) D-Dimer Heparin Anti-Xa Level ABG pH 7.32 L POC ABG pCO2 POC ABG pO2 ABG pO2 78.3 L ABG HCO3 ABG O2 Saturation ABG Base Excess -2.6 L ABG Hemoglobin 7.3 L ABG Oxyhemoglobin VBG pH ABG Sodium ABG Potassium ABG Glucose Oxyhemoglobin Sodium Potassium Chloride Carbon Dioxide BUN Creatinine Glucose POC Glucose 132 H 160 H Lactic Acid Calcium Ferritin AST Alkaline Phosphatase Magnesium Lactate Dehydrogenase Total Creatine Kinase CK-MB (CK-2) C-Reactive Protein Total Protein Albumin Troponin T HDL Cholesterol Arterial Blood Glucose Urine WBC (Auto) Urine Creatinine Urine Total Protein Phenytoin Coronavirus (PCR) Crossmatch 07/05/20 07/05/20 07/05/20 23:13 23:13 23:43 WBC RBC 2.57 L Hgb 7.7 L Hct 23.0 L MCHC RDW 16.9 H Lymph % (Auto) [place] % (Auto) Eos % (Auto) Lymph # [place] # Lymph # (Auto) [place] # (Auto) Eos # (Auto) Seg Neutrophils % Seg Neuts % (Manual) Lymphocytes % (Manual) Seg Neutrophils # Seg Neutrophils # Man Lymphocytes # (Manual) Monocytes % (Manual) Eosinophils % (Manual) Monocytes # (Manual) Eosinophils # (Manual) D-Dimer Heparin Anti-Xa Level ABG pH POC ABG pCO2 POC ABG pO2 ABG pO2 ABG HCO3 ABG O2 Saturation ABG Base Excess ABG Hemoglobin ABG Oxyhemoglobin VBG pH ABG Sodium ABG Potassium ABG Glucose Oxyhemoglobin Sodium Potassium Chloride Carbon Dioxide 20 L BUN 80 H Creatinine 2.4 H D Glucose 124 H POC Glucose 121 H Lactic Acid Calcium 7.6 L Ferritin AST Alkaline Phosphatase Magnesium Lactate Dehydrogenase Total Creatine Kinase CK-MB (CK-2) C-Reactive Protein Total Protein Albumin Troponin T HDL Cholesterol Arterial Blood Glucose Urine WBC (Auto) Urine Creatinine Urine Total Protein Phenytoin Coronavirus (PCR) Crossmatch 07/06/20 07/06/20 07/06/20 13:20 14:48 17:28 WBC RBC Hgb Hct MCHC RDW Lymph % (Auto) [place] % (Auto) Eos % (Auto) Lymph # [place] # Lymph # (Auto) [place] # (Auto) Eos # (Auto) Seg Neutrophils % Seg Neuts % (Manual) Lymphocytes % (Manual) Seg Neutrophils # Seg Neutrophils # Man Lymphocytes # (Manual) Monocytes % (Manual) Eosinophils % (Manual) Monocytes # (Manual) Eosinophils # (Manual) D-Dimer Heparin Anti-Xa Level ABG pH POC ABG pCO2 POC ABG pO2 ABG pO2 ABG HCO3 ABG O2 Saturation ABG Base Excess ABG Hemoglobin ABG Oxyhemoglobin VBG pH ABG Sodium ABG Potassium ABG Glucose Oxyhemoglobin Sodium 136 L Potassium 5.5 H Chloride Carbon Dioxide 19 L BUN 82 H Creatinine 2.5 H Glucose 113 H POC Glucose 133 H Lactic Acid Calcium 7.7 L Ferritin AST Alkaline Phosphatase Magnesium Lactate Dehydrogenase Total Creatine Kinase CK-MB (CK-2) C-Reactive Protein Total Protein Albumin Troponin T HDL Cholesterol Arterial Blood Glucose Urine WBC (Auto) Urine Creatinine 33.3 H Urine Total Protein Phenytoin Coronavirus (PCR) Crossmatch 07/07/20 07/07/20 07/07/20 00:12 04:15 04:15 WBC RBC 2.28 L Hgb 6.8 L Hct 20.7 L MCHC RDW 16.8 H Lymph % (Auto) [place] % (Auto) Eos % (Auto) Lymph # [place] # Lymph # (Auto) [place] # (Auto) Eos # (Auto) Seg Neutrophils % Seg Neuts % (Manual) Lymphocytes % (Manual) 13.0 L Seg Neutrophils # Seg Neutrophils # Man Lymphocytes # (Manual) 1.0 L Monocytes % (Manual) 11.0 H Eosinophils % (Manual) Monocytes # (Manual) 0.9 H Eosinophils # (Manual) D-Dimer Heparin Anti-Xa Level ABG pH POC ABG pCO2 POC ABG pO2 ABG pO2 ABG HCO3 ABG O2 Saturation ABG Base Excess ABG Hemoglobin ABG Oxyhemoglobin VBG pH ABG Sodium ABG Potassium ABG Glucose Oxyhemoglobin Sodium Potassium Chloride Carbon Dioxide BUN Creatinine Glucose POC Glucose 154 H Lactic Acid Calcium Ferritin AST Alkaline Phosphatase Magnesium 2.50 H Lactate Dehydrogenase Total Creatine Kinase CK-MB (CK-2) C-Reactive Protein Total Protein Albumin Troponin T HDL Cholesterol Arterial Blood Glucose Urine WBC (Auto) Urine Creatinine Urine Total Protein Phenytoin Coronavirus (PCR) Crossmatch 07/07/20 07/07/20 07/07/20 05:31 12:31 13:22 WBC RBC Hgb Hct MCHC RDW Lymph % (Auto) [place] % (Auto) Eos % (Auto) Lymph # [place] # Lymph # (Auto) [place] # (Auto) Eos # (Auto) Seg Neutrophils % Seg Neuts % (Manual) Lymphocytes % (Manual) Seg Neutrophils # Seg Neutrophils # Man Lymphocytes # (Manual) Monocytes % (Manual) Eosinophils % (Manual) Monocytes # (Manual) Eosinophils # (Manual) D-Dimer Heparin Anti-Xa Level ABG pH POC ABG pCO2 POC ABG pO2 ABG pO2 ABG HCO3 ABG O2 Saturation ABG Base Excess ABG Hemoglobin ABG Oxyhemoglobin VBG pH ABG Sodium ABG Potassium ABG Glucose Oxyhemoglobin Sodium Potassium 5.6 H Chloride Carbon Dioxide BUN 86 H Creatinine 2.9 H Glucose 127 H POC Glucose 135 H 131 H Lactic Acid Calcium 8.1 L Ferritin AST Alkaline Phosphatase Magnesium Lactate Dehydrogenase Total Creatine Kinase CK-MB (CK-2) C-Reactive Protein Total Protein Albumin Troponin T HDL Cholesterol Arterial Blood Glucose Urine WBC (Auto) Urine Creatinine Urine Total Protein Phenytoin Coronavirus (PCR) Crossmatch 07/07/20 07/07/20 07/08/20 17:55 23:33 04:14 WBC RBC 3.28 L Hgb 9.7 L Hct 28.9 L D MCHC RDW 16.4 H Lymph % (Auto) 10.3 L [place] % (Auto) 10.0 H Eos % (Auto) Lymph # [place] # Lymph # (Auto) 1.1 L [place] # (Auto) 1.1 H Eos # (Auto) Seg Neutrophils % 77.2 H Seg Neuts % (Manual) Lymphocytes % (Manual) Seg Neutrophils # 8.2 H Seg Neutrophils # Man Lymphocytes # (Manual) Monocytes % (Manual) Eosinophils % (Manual) Monocytes # (Manual) Eosinophils # (Manual) D-Dimer Heparin Anti-Xa Level ABG pH POC ABG pCO2 POC ABG pO2 ABG pO2 ABG HCO3 ABG O2 Saturation ABG Base Excess ABG Hemoglobin ABG Oxyhemoglobin VBG pH ABG Sodium ABG Potassium ABG Glucose Oxyhemoglobin Sodium Potassium Chloride Carbon Dioxide BUN Creatinine Glucose POC Glucose 136 H 159 H Lactic Acid Calcium Ferritin AST Alkaline Phosphatase Magnesium Lactate Dehydrogenase Total Creatine Kinase CK-MB (CK-2) C-Reactive Protein Total Protein Albumin Troponin T HDL Cholesterol Arterial Blood Glucose Urine WBC (Auto) Urine Creatinine Urine Total Protein Phenytoin Coronavirus (PCR) Crossmatch 07/08/20 07/08/20 07/08/20 04:14 12:10 18:10 WBC RBC Hgb Hct MCHC RDW Lymph % (Auto) [place] % (Auto) Eos % (Auto) Lymph # [place] # Lymph # (Auto) [place] # (Auto) Eos # (Auto) Seg Neutrophils % Seg Neuts % (Manual) Lymphocytes % (Manual) Seg Neutrophils # Seg Neutrophils # Man Lymphocytes # (Manual) Monocytes % (Manual) Eosinophils % (Manual) Monocytes # (Manual) Eosinophils # (Manual) D-Dimer Heparin Anti-Xa Level ABG pH POC ABG pCO2 POC ABG pO2 ABG pO2 ABG HCO3 ABG O2 Saturation ABG Base Excess ABG Hemoglobin ABG Oxyhemoglobin VBG pH ABG Sodium ABG Potassium ABG Glucose Oxyhemoglobin Sodium 136 L Potassium Chloride Carbon Dioxide BUN 84 H Creatinine 2.8 H Glucose 109 H POC Glucose 108 H 125 H Lactic Acid Calcium 8.1 L Ferritin AST Alkaline Phosphatase Magnesium 2.50 H Lactate Dehydrogenase Total Creatine Kinase CK-MB (CK-2) C-Reactive Protein Total Protein Albumin Troponin T HDL Cholesterol Arterial Blood Glucose Urine WBC (Auto) Urine Creatinine Urine Total Protein Phenytoin Coronavirus (PCR) Crossmatch 07/08/20 07/09/20 07/09/20 23:50 05:39 11:57 WBC RBC Hgb Hct MCHC RDW Lymph % (Auto) [place] % (Auto) Eos % (Auto) Lymph # [place] # Lymph # (Auto) [place] # (Auto) Eos # (Auto) Seg Neutrophils % Seg Neuts % (Manual) Lymphocytes % (Manual) Seg Neutrophils # Seg Neutrophils # Man Lymphocytes # (Manual) Monocytes % (Manual) Eosinophils % (Manual) Monocytes # (Manual) Eosinophils # (Manual) D-Dimer Heparin Anti-Xa Level ABG pH POC ABG pCO2 POC ABG pO2 ABG pO2 ABG HCO3 ABG O2 Saturation ABG Base Excess ABG Hemoglobin ABG Oxyhemoglobin VBG pH ABG Sodium ABG Potassium ABG Glucose Oxyhemoglobin Sodium Potassium Chloride Carbon Dioxide BUN Creatinine Glucose POC Glucose 141 H 121 H 123 H Lactic Acid Calcium Ferritin AST Alkaline Phosphatase Magnesium Lactate Dehydrogenase Total Creatine Kinase CK-MB (CK-2) C-Reactive Protein Total Protein Albumin Troponin T HDL Cholesterol Arterial Blood Glucose Urine WBC (Auto) Urine Creatinine Urine Total Protein Phenytoin Coronavirus (PCR) Crossmatch 07/09/20 07/10/20 07/10/20 17:56 00:29 05:50 WBC RBC Hgb Hct MCHC RDW Lymph % (Auto) [place] % (Auto) Eos % (Auto) Lymph # [place] # Lymph # (Auto) [place] # (Auto) Eos # (Auto) Seg Neutrophils % Seg Neuts % (Manual) Lymphocytes % (Manual) Seg Neutrophils # Seg Neutrophils # Man Lymphocytes # (Manual) Monocytes % (Manual) Eosinophils % (Manual) Monocytes # (Manual) Eosinophils # (Manual) D-Dimer Heparin Anti-Xa Level ABG pH POC ABG pCO2 POC ABG pO2 ABG pO2 ABG HCO3 ABG O2 Saturation ABG Base Excess ABG Hemoglobin ABG Oxyhemoglobin VBG pH ABG Sodium ABG Potassium ABG Glucose Oxyhemoglobin Sodium Potassium Chloride Carbon Dioxide BUN Creatinine Glucose POC Glucose 119 H 122 H 124 H Lactic Acid Calcium Ferritin AST Alkaline Phosphatase Magnesium Lactate Dehydrogenase Total Creatine Kinase CK-MB (CK-2) C-Reactive Protein Total Protein Albumin Troponin T HDL Cholesterol Arterial Blood Glucose Urine WBC (Auto) Urine Creatinine Urine Total Protein Phenytoin Coronavirus (PCR) Crossmatch 07/10/20 07/10/20 07/10/20 10:41 10:41 12:25 WBC RBC 3.11 L Hgb 9.2 L Hct 27.6 L MCHC RDW 16.6 H Lymph % (Auto) [place] % (Auto) Eos % (Auto) Lymph # [place] # Lymph # (Auto) [place] # (Auto) Eos # (Auto) Seg Neutrophils % Seg Neuts % (Manual) 78.0 H Lymphocytes % (Manual) 11.0 L Seg Neutrophils # Seg Neutrophils # Man Lymphocytes # (Manual) 1.0 L Monocytes % (Manual) Eosinophils % (Manual) Monocytes # (Manual) Eosinophils # (Manual) D-Dimer Heparin Anti-Xa Level ABG pH POC ABG pCO2 POC ABG pO2 ABG pO2 ABG HCO3 ABG O2 Saturation ABG Base Excess ABG Hemoglobin ABG Oxyhemoglobin VBG pH ABG Sodium ABG Potassium ABG Glucose Oxyhemoglobin Sodium Potassium Chloride Carbon Dioxide BUN 85 H Creatinine 2.5 H Glucose 133 H POC Glucose 131 H Lactic Acid Calcium Ferritin AST Alkaline Phosphatase 131 H Magnesium Lactate Dehydrogenase Total Creatine Kinase CK-MB (CK-2) C-Reactive Protein Total Protein 5.2 L Albumin 1.6 L Troponin T HDL Cholesterol Arterial Blood Glucose Urine WBC (Auto) Urine Creatinine Urine Total Protein Phenytoin Coronavirus (PCR) Crossmatch 1007/11/20 07/11/20 18:10 00:28 05:57 WBC RBC Hgb Hct MCHC RDW Lymph % (Auto) [place] % (Auto) Eos % (Auto) Lymph # [place] # Lymph # (Auto) [place] # (Auto) Eos # (Auto) Seg Neutrophils % Seg Neuts % (Manual) Lymphocytes % (Manual) Seg Neutrophils # Seg Neutrophils # Man Lymphocytes # (Manual) Monocytes % (Manual) Eosinophils % (Manual) Monocytes # (Manual) Eosinophils # (Manual) D-Dimer Heparin Anti-Xa Level ABG pH POC ABG pCO2 POC ABG pO2 ABG pO2 ABG HCO3 ABG O2 Saturation ABG Base Excess ABG Hemoglobin ABG Oxyhemoglobin VBG pH ABG Sodium ABG Potassium ABG Glucose Oxyhemoglobin Sodium Potassium Chloride Carbon Dioxide BUN Creatinine Glucose POC Glucose 134 H 140 H 148 H Lactic Acid Calcium Ferritin AST Alkaline Phosphatase Magnesium Lactate Dehydrogenase Total Creatine Kinase CK-MB (CK-2) C-Reactive Protein Total Protein Albumin Troponin T HDL Cholesterol Arterial Blood Glucose Urine WBC (Auto) Urine Creatinine Urine Total Protein Phenytoin Coronavirus (PCR) Crossmatch 07/11/20 07/11/20 07/11/20 12:14 17:28 23:49 WBC RBC Hgb Hct MCHC RDW Lymph % (Auto) [place] % (Auto) Eos % (Auto) Lymph # [place] # Lymph # (Auto) [place] # (Auto) Eos # (Auto) Seg Neutrophils % Seg Neuts % (Manual) Lymphocytes % (Manual) Seg Neutrophils # Seg Neutrophils # Man Lymphocytes # (Manual) Monocytes % (Manual) Eosinophils % (Manual) Monocytes # (Manual) Eosinophils # (Manual) D-Dimer Heparin Anti-Xa Level ABG pH POC ABG pCO2 POC ABG pO2 ABG pO2 ABG HCO3 ABG O2 Saturation ABG Base Excess ABG Hemoglobin ABG Oxyhemoglobin VBG pH ABG Sodium ABG Potassium ABG Glucose Oxyhemoglobin Sodium Potassium Chloride Carbon Dioxide BUN Creatinine Glucose POC Glucose 147 H 175 H 114 H Lactic Acid Calcium Ferritin AST Alkaline Phosphatase Magnesium Lactate Dehydrogenase Total Creatine Kinase CK-MB (CK-2) C-Reactive Protein Total Protein Albumin Troponin T HDL Cholesterol Arterial Blood Glucose Urine WBC (Auto) Urine Creatinine Urine Total Protein Phenytoin Coronavirus (PCR) Crossmatch 07/12/20 07/12/20 07/12/20 05:14 05:14 05:44 WBC RBC 2.78 L Hgb 8.5 L Hct 25.3 L MCHC RDW 16.7 H Lymph % (Auto) [place] % (Auto) Eos % (Auto) Lymph # [place] # Lymph # (Auto) [place] # (Auto) Eos # (Auto) Seg Neutrophils % Seg Neuts % (Manual) 81.0 H Lymphocytes % (Manual) 6.0 L Seg Neutrophils # Seg Neutrophils # Man Lymphocytes # (Manual) 0.6 L Monocytes % (Manual) 8.0 H Eosinophils % (Manual) Monocytes # (Manual) Eosinophils # (Manual) D-Dimer Heparin Anti-Xa Level ABG pH POC ABG pCO2 POC ABG pO2 ABG pO2 ABG HCO3 ABG O2 Saturation ABG Base Excess ABG Hemoglobin ABG Oxyhemoglobin VBG pH ABG Sodium ABG Potassium ABG Glucose Oxyhemoglobin Sodium Potassium Chloride Carbon Dioxide BUN 79 H Creatinine 2.2 H Glucose 131 H POC Glucose 116 H Lactic Acid Calcium Ferritin AST Alkaline Phosphatase Magnesium Lactate Dehydrogenase Total Creatine Kinase CK-MB (CK-2) C-Reactive Protein Total Protein Albumin Troponin T HDL Cholesterol Arterial Blood Glucose Urine WBC (Auto) Urine Creatinine Urine Total Protein Phenytoin Coronavirus (PCR) Crossmatch 07/12/20 07/12/20 07/13/20 11:32 17:53 00:18 WBC RBC Hgb Hct MCHC RDW Lymph % (Auto) [place] % (Auto) Eos % (Auto) Lymph # [place] # Lymph # (Auto) [place] # (Auto) Eos # (Auto) Seg Neutrophils % Seg Neuts % (Manual) Lymphocytes % (Manual) Seg Neutrophils # Seg Neutrophils # Man Lymphocytes # (Manual) Monocytes % (Manual) Eosinophils % (Manual) Monocytes # (Manual) Eosinophils # (Manual) D-Dimer Heparin Anti-Xa Level ABG pH POC ABG pCO2 POC ABG pO2 ABG pO2 ABG HCO3 ABG O2 Saturation ABG Base Excess ABG Hemoglobin ABG Oxyhemoglobin VBG pH ABG Sodium ABG Potassium ABG Glucose Oxyhemoglobin Sodium Potassium Chloride Carbon Dioxide BUN Creatinine Glucose POC Glucose 132 H 155 H 162 H Lactic Acid Calcium Ferritin AST Alkaline Phosphatase Magnesium Lactate Dehydrogenase Total Creatine Kinase CK-MB (CK-2) C-Reactive Protein Total Protein Albumin Troponin T HDL Cholesterol Arterial Blood Glucose Urine WBC (Auto) Urine Creatinine Urine Total Protein Phenytoin Coronavirus (PCR) Crossmatch 1007/13/20 07/13/20 04:53 04:53 06:14 WBC RBC 2.86 L Hgb 8.4 L Hct 25.7 L MCHC RDW 16.8 H Lymph % (Auto) [place] % (Auto) Eos % (Auto) Lymph # [place] # Lymph # (Auto) [place] # (Auto) Eos # (Auto) Seg Neutrophils % Seg Neuts % (Manual) 84.0 H Lymphocytes % (Manual) 7.0 L Seg Neutrophils # Seg Neutrophils # Man Lymphocytes # (Manual) 0.6 L Monocytes % (Manual) Eosinophils % (Manual) Monocytes # (Manual) Eosinophils # (Manual) D-Dimer Heparin Anti-Xa Level ABG pH POC ABG pCO2 POC ABG pO2 ABG pO2 ABG HCO3 ABG O2 Saturation ABG Base Excess ABG Hemoglobin ABG Oxyhemoglobin VBG pH ABG Sodium ABG Potassium ABG Glucose Oxyhemoglobin Sodium 136 L Potassium Chloride Carbon Dioxide BUN 78 H Creatinine 2.0 H Glucose 130 H POC Glucose 141 H Lactic Acid Calcium Ferritin AST Alkaline Phosphatase Magnesium Lactate Dehydrogenase Total Creatine Kinase CK-MB (CK-2) C-Reactive Protein Total Protein Albumin Troponin T HDL Cholesterol Arterial Blood Glucose Urine WBC (Auto) Urine Creatinine Urine Total Protein Phenytoin Coronavirus (PCR) Crossmatch 07/13/20 07/13/20 07/14/20 12:50 18:27 00:22 WBC RBC Hgb Hct MCHC RDW Lymph % (Auto) [place] % (Auto) Eos % (Auto) Lymph # [place] # Lymph # (Auto) [place] # (Auto) Eos # (Auto) Seg Neutrophils % Seg Neuts % (Manual) Lymphocytes % (Manual) Seg Neutrophils # Seg Neutrophils # Man Lymphocytes # (Manual) Monocytes % (Manual) Eosinophils % (Manual) Monocytes # (Manual) Eosinophils # (Manual) D-Dimer Heparin Anti-Xa Level ABG pH POC ABG pCO2 POC ABG pO2 ABG pO2 ABG HCO3 ABG O2 Saturation ABG Base Excess ABG Hemoglobin ABG Oxyhemoglobin VBG pH ABG Sodium ABG Potassium ABG Glucose Oxyhemoglobin Sodium Potassium Chloride Carbon Dioxide BUN Creatinine Glucose POC Glucose 146 H 149 H 157 H Lactic Acid Calcium Ferritin AST Alkaline Phosphatase Magnesium Lactate Dehydrogenase Total Creatine Kinase CK-MB (CK-2) C-Reactive Protein Total Protein Albumin Troponin T HDL Cholesterol Arterial Blood Glucose Urine WBC (Auto) Urine Creatinine Urine Total Protein Phenytoin Coronavirus (PCR) Crossmatch 07/14/20 07/14/20 07/14/20 05:43 08:04 12:12 WBC RBC Hgb Hct MCHC RDW Lymph % (Auto) [place] % (Auto) Eos % (Auto) Lymph # [place] # Lymph # (Auto) [place] # (Auto) Eos # (Auto) Seg Neutrophils % Seg Neuts % (Manual) Lymphocytes % (Manual) Seg Neutrophils # Seg Neutrophils # Man Lymphocytes # (Manual) Monocytes % (Manual) Eosinophils % (Manual) Monocytes # (Manual) Eosinophils # (Manual) D-Dimer Heparin Anti-Xa Level ABG pH POC ABG pCO2 POC ABG pO2 ABG pO2 ABG HCO3 ABG O2 Saturation ABG Base Excess ABG Hemoglobin ABG Oxyhemoglobin VBG pH ABG Sodium ABG Potassium ABG Glucose Oxyhemoglobin Sodium Potassium Chloride Carbon Dioxide BUN Creatinine Glucose POC Glucose 169 H 185 H Lactic Acid Calcium Ferritin AST Alkaline Phosphatase Magnesium Lactate Dehydrogenase Total Creatine Kinase CK-MB (CK-2) C-Reactive Protein Total Protein Albumin Troponin T HDL Cholesterol Arterial Blood Glucose Urine WBC (Auto) Urine Creatinine Urine Total Protein Phenytoin Coronavirus (PCR) Positive A Crossmatch 07/14/20 07/15/20 07/15/20 17:23 00:04 06:06 WBC RBC Hgb Hct MCHC RDW Lymph % (Auto) [place] % (Auto) Eos % (Auto) Lymph # [place] # Lymph # (Auto) [place] # (Auto) Eos # (Auto) Seg Neutrophils % Seg Neuts % (Manual) Lymphocytes % (Manual) Seg Neutrophils # Seg Neutrophils # Man Lymphocytes # (Manual) Monocytes % (Manual) Eosinophils % (Manual) Monocytes # (Manual) Eosinophils # (Manual) D-Dimer Heparin Anti-Xa Level ABG pH POC ABG pCO2 POC ABG pO2 ABG pO2 ABG HCO3 ABG O2 Saturation ABG Base Excess ABG Hemoglobin ABG Oxyhemoglobin VBG pH ABG Sodium ABG Potassium ABG Glucose Oxyhemoglobin Sodium Potassium Chloride Carbon Dioxide BUN Creatinine Glucose POC Glucose 138 H 121 H 140 H Lactic Acid Calcium Ferritin AST Alkaline Phosphatase Magnesium Lactate Dehydrogenase Total Creatine Kinase CK-MB (CK-2) C-Reactive Protein Total Protein Albumin Troponin T HDL Cholesterol Arterial Blood Glucose Urine WBC (Auto) Urine Creatinine Urine Total Protein Phenytoin Coronavirus (PCR) Crossmatch 07/15/20 07/15/2007/15/20 12:00 17:53 23:53 WBC RBC Hgb Hct MCHC RDW Lymph % (Auto) [place] % (Auto) Eos % (Auto) Lymph # [place] # Lymph # (Auto) [place] # (Auto) Eos # (Auto) Seg Neutrophils % Seg Neuts % (Manual) Lymphocytes % (Manual) Seg Neutrophils # Seg Neutrophils # Man Lymphocytes # (Manual) Monocytes % (Manual) Eosinophils % (Manual) Monocytes # (Manual) Eosinophils # (Manual) D-Dimer Heparin Anti-Xa Level ABG pH POC ABG pCO2 POC ABG pO2 ABG pO2 ABG HCO3 ABG O2 Saturation ABG Base Excess ABG Hemoglobin ABG Oxyhemoglobin VBG pH ABG Sodium ABG Potassium ABG Glucose Oxyhemoglobin Sodium Potassium Chloride Carbon Dioxide BUN Creatinine Glucose POC Glucose 137 H 161 H 156 H Lactic Acid Calcium Ferritin AST Alkaline Phosphatase Magnesium Lactate Dehydrogenase Total Creatine Kinase CK-MB (CK-2) C-Reactive Protein Total Protein Albumin Troponin T HDL Cholesterol Arterial Blood Glucose Urine WBC (Auto) Urine Creatinine Urine Total Protein Phenytoin Coronavirus (PCR) Crossmatch 07/16/20 07/16/20 07/17/20 05:26 17:44 00:07 WBC RBC Hgb Hct MCHC RDW Lymph % (Auto) [place] % (Auto) Eos % (Auto) Lymph # [place] # Lymph # (Auto) [place] # (Auto) Eos # (Auto) Seg Neutrophils % Seg Neuts % (Manual) Lymphocytes % (Manual) Seg Neutrophils # Seg Neutrophils # Man Lymphocytes # (Manual) Monocytes % (Manual) Eosinophils % (Manual) Monocytes # (Manual) Eosinophils # (Manual) D-Dimer Heparin Anti-Xa Level ABG pH POC ABG pCO2 POC ABG pO2 ABG pO2 ABG HCO3 ABG O2 Saturation ABG Base Excess ABG Hemoglobin ABG Oxyhemoglobin VBG pH ABG Sodium ABG Potassium ABG Glucose Oxyhemoglobin Sodium Potassium Chloride Carbon Dioxide BUN Creatinine Glucose POC Glucose 152 H 126 H 189 H Lactic Acid Calcium Ferritin AST Alkaline Phosphatase Magnesium Lactate Dehydrogenase Total Creatine Kinase CK-MB (CK-2) C-Reactive Protein Total Protein Albumin Troponin T HDL Cholesterol Arterial Blood Glucose Urine WBC (Auto) Urine Creatinine Urine Total Protein Phenytoin Coronavirus (PCR) Crossmatch 07/17/20 07/17/20 07/17/20 12:06 18:20 23:25 WBC RBC Hgb Hct MCHC RDW Lymph % (Auto) [place] % (Auto) Eos % (Auto) Lymph # [place] # Lymph # (Auto) [place] # (Auto) Eos # (Auto) Seg Neutrophils % Seg Neuts % (Manual) Lymphocytes % (Manual) Seg Neutrophils # Seg Neutrophils # Man Lymphocytes # (Manual) Monocytes % (Manual) Eosinophils % (Manual) Monocytes # (Manual) Eosinophils # (Manual) D-Dimer Heparin Anti-Xa Level ABG pH POC ABG pCO2 POC ABG pO2 ABG pO2 ABG HCO3 ABG O2 Saturation ABG Base Excess ABG Hemoglobin ABG Oxyhemoglobin VBG pH ABG Sodium ABG Potassium ABG Glucose Oxyhemoglobin Sodium Potassium Chloride Carbon Dioxide BUN Creatinine Glucose POC Glucose 155 H 206 H 161 H Lactic Acid Calcium Ferritin AST Alkaline Phosphatase Magnesium Lactate Dehydrogenase Total Creatine Kinase CK-MB (CK-2) C-Reactive Protein Total Protein Albumin Troponin T HDL Cholesterol Arterial Blood Glucose Urine WBC (Auto) Urine Creatinine Urine Total Protein Phenytoin Coronavirus (PCR) Crossmatch 07/18/20 07/18/20 07/18/20 04:24 05:16 11:53 WBC RBC Hgb Hct MCHC RDW Lymph % (Auto) [place] % (Auto) Eos % (Auto) Lymph # [place] # Lymph # (Auto) [place] # (Auto) Eos # (Auto) Seg Neutrophils % Seg Neuts % (Manual) Lymphocytes % (Manual) Seg Neutrophils # Seg Neutrophils # Man Lymphocytes # (Manual) Monocytes % (Manual) Eosinophils % (Manual) Monocytes # (Manual) Eosinophils # (Manual) D-Dimer Heparin Anti-Xa Level ABG pH POC ABG pCO2 POC ABG pO2 ABG pO2 ABG HCO3 ABG O2 Saturation ABG Base Excess ABG Hemoglobin 8.8 L ABG Oxyhemoglobin VBG pH ABG Sodium 131.6 L ABG Potassium 4.9 H ABG Glucose 131 H Oxyhemoglobin Sodium Potassium Chloride Carbon Dioxide BUN Creatinine Glucose POC Glucose 140 H 176 H Lactic Acid Calcium Ferritin AST Alkaline Phosphatase Magnesium Lactate Dehydrogenase Total Creatine Kinase CK-MB (CK-2) C-Reactive Protein Total Protein Albumin Troponin T HDL Cholesterol Arterial Blood Glucose 131 H Urine WBC (Auto) Urine Creatinine Urine Total Protein Phenytoin Coronavirus (PCR) Crossmatch 07/18/20 07/18/20 07/19/20 18:11 23:51 01:05 WBC RBC 2.76 L Hgb 7.9 L Hct 24.5 L MCHC RDW 17.6 H Lymph % (Auto) 11.6 L [place] % (Auto) 13.1 H Eos % (Auto) Lymph # [place] # Lymph # (Auto) 1.0 L [place] # (Auto) 1.1 H Eos # (Auto) Seg Neutrophils % 70.9 H Seg Neuts % (Manual) Lymphocytes % (Manual) Seg Neutrophils # Seg Neutrophils # Man Lymphocytes # (Manual) Monocytes % (Manual) Eosinophils % (Manual) Monocytes # (Manual) Eosinophils # (Manual) D-Dimer Heparin Anti-Xa Level ABG pH POC ABG pCO2 POC ABG pO2 ABG pO2 ABG HCO3 ABG O2 Saturation ABG Base Excess ABG Hemoglobin ABG Oxyhemoglobin VBG pH ABG Sodium ABG Potassium ABG Glucose Oxyhemoglobin Sodium Potassium Chloride Carbon Dioxide BUN Creatinine Glucose POC Glucose 143 H 159 H Lactic Acid Calcium Ferritin AST Alkaline Phosphatase Magnesium Lactate Dehydrogenase Total Creatine Kinase CK-MB (CK-2) C-Reactive Protein Total Protein Albumin Troponin T HDL Cholesterol Arterial Blood Glucose Urine WBC (Auto) Urine Creatinine Urine Total Protein Phenytoin Coronavirus (PCR) Crossmatch 07/19/20 07/19/20 07/19/20 01:05 05:54 12:46 WBC RBC Hgb Hct MCHC RDW Lymph % (Auto) [place] % (Auto) Eos % (Auto) Lymph # [place] # Lymph # (Auto) [place] # (Auto) Eos # (Auto) Seg Neutrophils % Seg Neuts % (Manual) Lymphocytes % (Manual) Seg Neutrophils # Seg Neutrophils # Man Lymphocytes # (Manual) Monocytes % (Manual) Eosinophils % (Manual) Monocytes # (Manual) Eosinophils # (Manual) D-Dimer Heparin Anti-Xa Level ABG pH POC ABG pCO2 POC ABG pO2 ABG pO2 ABG HCO3 ABG O2 Saturation ABG Base Excess ABG Hemoglobin ABG Oxyhemoglobin VBG pH ABG Sodium ABG Potassium ABG Glucose Oxyhemoglobin Sodium Potassium Chloride Carbon Dioxide BUN 86 H Creatinine 1.7 H Glucose 149 H POC Glucose 176 H 127 H Lactic Acid Calcium Ferritin AST Alkaline Phosphatase Magnesium Lactate Dehydrogenase Total Creatine Kinase CK-MB (CK-2) C-Reactive Protein Total Protein Albumin Troponin T HDL Cholesterol Arterial Blood Glucose Urine WBC (Auto) Urine Creatinine Urine Total Protein Phenytoin Coronavirus (PCR) Crossmatch 07/19/20 07/20/2007/20/20 17:48 00:34 05:28 WBC RBC Hgb Hct MCHC RDW Lymph % (Auto) [place] % (Auto) Eos % (Auto) Lymph # [place] # Lymph # (Auto) [place] # (Auto) Eos # (Auto) Seg Neutrophils % Seg Neuts % (Manual) Lymphocytes % (Manual) Seg Neutrophils # Seg Neutrophils # Man Lymphocytes # (Manual) Monocytes % (Manual) Eosinophils % (Manual) Monocytes # (Manual) Eosinophils # (Manual) D-Dimer Heparin Anti-Xa Level ABG pH POC ABG pCO2 POC ABG pO2 ABG pO2 ABG HCO3 ABG O2 Saturation ABG Base Excess ABG Hemoglobin ABG Oxyhemoglobin VBG pH ABG Sodium ABG Potassium ABG Glucose Oxyhemoglobin Sodium Potassium Chloride Carbon Dioxide BUN Creatinine Glucose POC Glucose 123 H 147 H 110 H Lactic Acid Calcium Ferritin AST Alkaline Phosphatase Magnesium Lactate Dehydrogenase Total Creatine Kinase CK-MB (CK-2) C-Reactive Protein Total Protein Albumin Troponin T HDL Cholesterol Arterial Blood Glucose Urine WBC (Auto) Urine Creatinine Urine Total Protein Phenytoin Coronavirus (PCR) Crossmatch 07/20/20 07/20/20 07/21/20 12:10 17:00 00:11 WBC RBC Hgb Hct MCHC RDW Lymph % (Auto) [place] % (Auto) Eos % (Auto) Lymph # [place] # Lymph # (Auto) [place] # (Auto) Eos # (Auto) Seg Neutrophils % Seg Neuts % (Manual) Lymphocytes % (Manual) Seg Neutrophils # Seg Neutrophils # Man Lymphocytes # (Manual) Monocytes % (Manual) Eosinophils % (Manual) Monocytes # (Manual) Eosinophils # (Manual) D-Dimer Heparin Anti-Xa Level ABG pH POC ABG pCO2 POC ABG pO2 ABG pO2 ABG HCO3 ABG O2 Saturation ABG Base Excess ABG Hemoglobin ABG Oxyhemoglobin VBG pH ABG Sodium ABG Potassium ABG Glucose Oxyhemoglobin Sodium Potassium Chloride Carbon Dioxide BUN Creatinine Glucose POC Glucose 149 H 173 H 128 H Lactic Acid Calcium Ferritin AST Alkaline Phosphatase Magnesium Lactate Dehydrogenase Total Creatine Kinase CK-MB (CK-2) C-Reactive Protein Total Protein Albumin Troponin T HDL Cholesterol Arterial Blood Glucose Urine WBC (Auto) Urine Creatinine Urine Total Protein Phenytoin Coronavirus (PCR) Crossmatch 07/21/20 07/21/20 07/21/20 05:30 12:21 18:17 WBC RBC Hgb Hct MCHC RDW Lymph % (Auto) [place] % (Auto) Eos % (Auto) Lymph # [place] # Lymph # (Auto) [place] # (Auto) Eos # (Auto) Seg Neutrophils % Seg Neuts % (Manual) Lymphocytes % (Manual) Seg Neutrophils # Seg Neutrophils # Man Lymphocytes # (Manual) Monocytes % (Manual) Eosinophils % (Manual) Monocytes # (Manual) Eosinophils # (Manual) D-Dimer Heparin Anti-Xa Level ABG pH POC ABG pCO2 POC ABG pO2 ABG pO2 ABG HCO3 ABG O2 Saturation ABG Base Excess ABG Hemoglobin ABG Oxyhemoglobin VBG pH ABG Sodium ABG Potassium ABG Glucose Oxyhemoglobin Sodium Potassium Chloride Carbon Dioxide BUN Creatinine Glucose POC Glucose 153 H 144 H 160 H Lactic Acid Calcium Ferritin AST Alkaline Phosphatase Magnesium Lactate Dehydrogenase Total Creatine Kinase CK-MB (CK-2) C-Reactive Protein Total Protein Albumin Troponin T HDL Cholesterol Arterial Blood Glucose Urine WBC (Auto) Urine Creatinine Urine Total Protein Phenytoin Coronavirus (PCR) Crossmatch 07/22/20 07/22/20 07/22/20 00:45 05:52 12:03 WBC RBC Hgb Hct MCHC RDW Lymph % (Auto) [place] % (Auto) Eos % (Auto) Lymph # [place] # Lymph # (Auto) [place] # (Auto) Eos # (Auto) Seg Neutrophils % Seg Neuts % (Manual) Lymphocytes % (Manual) Seg Neutrophils # Seg Neutrophils # Man Lymphocytes # (Manual) Monocytes % (Manual) Eosinophils % (Manual) Monocytes # (Manual) Eosinophils # (Manual) D-Dimer Heparin Anti-Xa Level ABG pH POC ABG pCO2 POC ABG pO2 ABG pO2 ABG HCO3 ABG O2 Saturation ABG Base Excess ABG Hemoglobin ABG Oxyhemoglobin VBG pH ABG Sodium ABG Potassium ABG Glucose Oxyhemoglobin Sodium Potassium Chloride Carbon Dioxide BUN Creatinine Glucose POC Glucose 128 H 126 H 157 H Lactic Acid Calcium Ferritin AST Alkaline Phosphatase Magnesium Lactate Dehydrogenase Total Creatine Kinase CK-MB (CK-2) C-Reactive Protein Total Protein Albumin Troponin T HDL Cholesterol Arterial Blood Glucose Urine WBC (Auto) Urine Creatinine Urine Total Protein Phenytoin Coronavirus (PCR) Crossmatch 07/22/20 07/22/20 07/23/20 18:23 23:20 06:06 WBC RBC Hgb Hct MCHC RDW Lymph % (Auto) [place] % (Auto) Eos % (Auto) Lymph # [place] # Lymph # (Auto) [place] # (Auto) Eos # (Auto) Seg Neutrophils % Seg Neuts % (Manual) Lymphocytes % (Manual) Seg Neutrophils # Seg Neutrophils # Man Lymphocytes # (Manual) Monocytes % (Manual) Eosinophils % (Manual) Monocytes # (Manual) Eosinophils # (Manual) D-Dimer Heparin Anti-Xa Level ABG pH POC ABG pCO2 POC ABG pO2 ABG pO2 ABG HCO3 ABG O2 Saturation ABG Base Excess ABG Hemoglobin ABG Oxyhemoglobin VBG pH ABG Sodium ABG Potassium ABG Glucose Oxyhemoglobin Sodium Potassium Chloride Carbon Dioxide BUN Creatinine Glucose POC Glucose 152 H 122 H 143 H Lactic Acid Calcium Ferritin AST Alkaline Phosphatase Magnesium Lactate Dehydrogenase Total Creatine Kinase CK-MB (CK-2) C-Reactive Protein Total Protein Albumin Troponin T HDL Cholesterol Arterial Blood Glucose Urine WBC (Auto) Urine Creatinine Urine Total Protein Phenytoin Coronavirus (PCR) Crossmatch 07/23/20 07/23/20 07/23/20 12:11 17:38 19:23 WBC RBC Hgb Hct MCHC RDW Lymph % (Auto) [place] % (Auto) Eos % (Auto) Lymph # [place] # Lymph # (Auto) [place] # (Auto) Eos # (Auto) Seg Neutrophils % Seg Neuts % (Manual) Lymphocytes % (Manual) Seg Neutrophils # Seg Neutrophils # Man Lymphocytes # (Manual) Monocytes % (Manual) Eosinophils % (Manual) Monocytes # (Manual) Eosinophils # (Manual) D-Dimer Heparin Anti-Xa Level ABG pH POC ABG pCO2 POC ABG pO2 ABG pO2 ABG HCO3 ABG O2 Saturation ABG Base Excess ABG Hemoglobin ABG Oxyhemoglobin VBG pH ABG Sodium ABG Potassium ABG Glucose Oxyhemoglobin Sodium 129 L D Potassium 5.8 H Chloride 95.6 L Carbon Dioxide BUN 98 H Creatinine 2.1 H Glucose 167 H POC Glucose 210 H 181 H Lactic Acid Calcium Ferritin AST Alkaline Phosphatase Magnesium Lactate Dehydrogenase Total Creatine Kinase CK-MB (CK-2) C-Reactive Protein Total Protein Albumin 2.2 L Troponin T HDL Cholesterol Arterial Blood Glucose Urine WBC (Auto) Urine Creatinine Urine Total Protein Phenytoin Coronavirus (PCR) Crossmatch 07/24/20 07/24/20 07/24/20 00:00 04:29 04:29 WBC RBC 2.53 L Hgb 7.5 L Hct 22.8 L MCHC RDW 16.8 H Lymph % (Auto) 9.4 L [place] % (Auto) 10.4 H Eos % (Auto) 5.9 H Lymph # [place] # Lymph # (Auto) 0.8 L [place] # (Auto) 0.9 H Eos # (Auto) 0.5 H Seg Neutrophils % 73.5 H Seg Neuts % (Manual) Lymphocytes % (Manual) Seg Neutrophils # Seg Neutrophils # Man Lymphocytes # (Manual) Monocytes % (Manual) Eosinophils % (Manual) Monocytes # (Manual) Eosinophils # (Manual) D-Dimer Heparin Anti-Xa Level ABG pH POC ABG pCO2 POC ABG pO2 ABG pO2 ABG HCO3 ABG O2 Saturation ABG Base Excess ABG Hemoglobin ABG Oxyhemoglobin VBG pH ABG Sodium ABG Potassium ABG Glucose Oxyhemoglobin Sodium Potassium Chloride Carbon Dioxide BUN Creatinine Glucose POC Glucose 201 H Lactic Acid Calcium Ferritin AST Alkaline Phosphatase Magnesium Lactate Dehydrogenase Total Creatine Kinase CK-MB (CK-2) C-Reactive Protein Total Protein Albumin Troponin T HDL Cholesterol Arterial Blood Glucose Urine WBC (Auto) Urine Creatinine Urine Total Protein Phenytoin 9.4 L Coronavirus (PCR) Crossmatch 07/24/20 07/24/20 07/24/20 04:29 05:11 12:14 WBC RBC Hgb Hct MCHC RDW Lymph % (Auto) [place] % (Auto) Eos % (Auto) Lymph # [place] # Lymph # (Auto) [place] # (Auto) Eos # (Auto) Seg Neutrophils % Seg Neuts % (Manual) Lymphocytes % (Manual) Seg Neutrophils # Seg Neutrophils # Man Lymphocytes # (Manual) Monocytes % (Manual) Eosinophils % (Manual) Monocytes # (Manual) Eosinophils # (Manual) D-Dimer Heparin Anti-Xa Level ABG pH POC ABG pCO2 POC ABG pO2 ABG pO2 ABG HCO3 ABG O2 Saturation ABG Base Excess ABG Hemoglobin ABG Oxyhemoglobin VBG pH ABG Sodium ABG Potassium ABG Glucose Oxyhemoglobin Sodium 134 L Potassium 5.5 H Chloride Carbon Dioxide BUN 97 H Creatinine 2.2 H Glucose 149 H POC Glucose 142 H 146 H Lactic Acid Calcium Ferritin AST Alkaline Phosphatase Magnesium 2.60 H Lactate Dehydrogenase Total Creatine Kinase CK-MB (CK-2) C-Reactive Protein Total Protein Albumin Troponin T HDL Cholesterol Arterial Blood Glucose Urine WBC (Auto) Urine Creatinine Urine Total Protein Phenytoin Coronavirus (PCR) Crossmatch 07/24/20 07/24/20 07/25/20 18:12 21:00 00:08 WBC RBC Hgb Hct MCHC RDW Lymph % (Auto) [place] % (Auto) Eos % (Auto) Lymph # [place] # Lymph # (Auto) [place] # (Auto) Eos # (Auto) Seg Neutrophils % Seg Neuts % (Manual) Lymphocytes % (Manual) Seg Neutrophils # Seg Neutrophils # Man Lymphocytes # (Manual) Monocytes % (Manual) Eosinophils % (Manual) Monocytes # (Manual) Eosinophils # (Manual) D-Dimer Heparin Anti-Xa Level ABG pH POC ABG pCO2 POC ABG pO2 ABG pO2 ABG HCO3 ABG O2 Saturation ABG Base Excess ABG Hemoglobin ABG Oxyhemoglobin VBG pH ABG Sodium ABG Potassium ABG Glucose Oxyhemoglobin Sodium Potassium Chloride Carbon Dioxide BUN Creatinine Glucose POC Glucose 182 H 170 H 129 H Lactic Acid Calcium Ferritin AST Alkaline Phosphatase Magnesium Lactate Dehydrogenase Total Creatine Kinase CK-MB (CK-2) C-Reactive Protein Total Protein Albumin Troponin T HDL Cholesterol Arterial Blood Glucose Urine WBC (Auto) Urine Creatinine Urine Total Protein Phenytoin Coronavirus (PCR) Crossmatch 07/25/20 07/25/20 07/25/20 04:24 04:24 12:19 WBC RBC 2.51 L Hgb 7.5 L Hct 22.3 L MCHC RDW 17.4 H Lymph % (Auto) [place] % (Auto) Eos % (Auto) Lymph # [place] # Lymph # (Auto) [place] # (Auto) Eos # (Auto) Seg Neutrophils % Seg Neuts % (Manual) Lymphocytes % (Manual) Seg Neutrophils # Seg Neutrophils # Man Lymphocytes # (Manual) Monocytes % (Manual) Eosinophils % (Manual) Monocytes # (Manual) Eosinophils # (Manual) D-Dimer Heparin Anti-Xa Level ABG pH POC ABG pCO2 POC ABG pO2 ABG pO2 ABG HCO3 ABG O2 Saturation ABG Base Excess ABG Hemoglobin ABG Oxyhemoglobin VBG pH ABG Sodium ABG Potassium ABG Glucose Oxyhemoglobin Sodium 132 L Potassium Chloride 95.1 L Carbon Dioxide 21 L BUN 95 H Creatinine 2.5 H Glucose 108 H POC Glucose 122 H Lactic Acid Calcium Ferritin AST Alkaline Phosphatase Magnesium Lactate Dehydrogenase Total Creatine Kinase CK-MB (CK-2) C-Reactive Protein Total Protein Albumin Troponin T HDL Cholesterol Arterial Blood Glucose Urine WBC (Auto) Urine Creatinine Urine Total Protein Phenytoin Coronavirus (PCR) Crossmatch 07/25/20 07/25/20 07/26/20 18:11 23:24 04:22 WBC RBC Hgb Hct MCHC RDW Lymph % (Auto) [place] % (Auto) Eos % (Auto) Lymph # [place] # Lymph # (Auto) [place] # (Auto) Eos # (Auto) Seg Neutrophils % Seg Neuts % (Manual) Lymphocytes % (Manual) Seg Neutrophils # Seg Neutrophils # Man Lymphocytes # (Manual) Monocytes % (Manual) Eosinophils % (Manual) Monocytes # (Manual) Eosinophils # (Manual) D-Dimer Heparin Anti-Xa Level ABG pH POC ABG pCO2 POC ABG pO2 ABG pO2 ABG HCO3 ABG O2 Saturation ABG Base Excess ABG Hemoglobin ABG Oxyhemoglobin VBG pH ABG Sodium ABG Potassium ABG Glucose Oxyhemoglobin Sodium 132 L Potassium Chloride 96.2 L Carbon Dioxide 21 L BUN 99 H Creatinine 2.5 H Glucose 132 H POC Glucose 137 H 117 H Lactic Acid Calcium 8.2 L Ferritin AST Alkaline Phosphatase Magnesium Lactate Dehydrogenase Total Creatine Kinase CK-MB (CK-2) C-Reactive Protein Total Protein Albumin Troponin T HDL Cholesterol Arterial Blood Glucose Urine WBC (Auto) Urine Creatinine Urine Total Protein Phenytoin Coronavirus (PCR) Crossmatch 07/26/20 07/26/20 07/26/20 05:58 12:21 17:31 WBC RBC Hgb Hct MCHC RDW Lymph % (Auto) [place] % (Auto) Eos % (Auto) Lymph # [place] # Lymph # (Auto) [place] # (Auto) Eos # (Auto) Seg Neutrophils % Seg Neuts % (Manual) Lymphocytes % (Manual) Seg Neutrophils # Seg Neutrophils # Man Lymphocytes # (Manual) Monocytes % (Manual) Eosinophils % (Manual) Monocytes # (Manual) Eosinophils # (Manual) D-Dimer Heparin Anti-Xa Level ABG pH POC ABG pCO2 POC ABG pO2 ABG pO2 ABG HCO3 ABG O2 Saturation ABG Base Excess ABG Hemoglobin ABG Oxyhemoglobin VBG pH ABG Sodium ABG Potassium ABG Glucose Oxyhemoglobin Sodium Potassium Chloride Carbon Dioxide BUN Creatinine Glucose POC Glucose 110 H 142 H 180 H Lactic Acid Calcium Ferritin AST Alkaline Phosphatase Magnesium Lactate Dehydrogenase Total Creatine Kinase CK-MB (CK-2) C-Reactive Protein Total Protein Albumin Troponin T HDL Cholesterol Arterial Blood Glucose Urine WBC (Auto) Urine Creatinine Urine Total Protein Phenytoin Coronavirus (PCR) Crossmatch 07/26/20 07/27/20 07/27/20 23:36 03:36 05:36 WBC RBC 2.49 L Hgb 7.3 L Hct 22.2 L MCHC RDW 17.2 H Lymph % (Auto) 11.0 L [place] % (Auto) 11.7 H Eos % (Auto) Lymph # [place] # Lymph # (Auto) 0.8 L [place] # (Auto) 0.9 H Eos # (Auto) Seg Neutrophils % 72.3 H Seg Neuts % (Manual) Lymphocytes % (Manual) Seg Neutrophils # Seg Neutrophils # Man Lymphocytes # (Manual) Monocytes % (Manual) Eosinophils % (Manual) Monocytes # (Manual) Eosinophils # (Manual) D-Dimer Heparin Anti-Xa Level ABG pH POC ABG pCO2 POC ABG pO2 ABG pO2 ABG HCO3 ABG O2 Saturation ABG Base Excess ABG Hemoglobin ABG Oxyhemoglobin VBG pH ABG Sodium ABG Potassium ABG Glucose Oxyhemoglobin Sodium Potassium Chloride Carbon Dioxide BUN Creatinine Glucose POC Glucose 162 H 118 H Lactic Acid Calcium Ferritin AST Alkaline Phosphatase Magnesium Lactate Dehydrogenase Total Creatine Kinase CK-MB (CK-2) C-Reactive Protein Total Protein Albumin Troponin T HDL Cholesterol Arterial Blood Glucose Urine WBC (Auto) Urine Creatinine Urine Total Protein Phenytoin Coronavirus (PCR) Crossmatch 07/27/20 07/27/20 07/27/20 05:36 12:19 17:36 WBC RBC Hgb Hct MCHC RDW Lymph % (Auto) [place] % (Auto) Eos % (Auto) Lymph # [place] # Lymph # (Auto) [place] # (Auto) Eos # (Auto) Seg Neutrophils % Seg Neuts % (Manual) Lymphocytes % (Manual) Seg Neutrophils # Seg Neutrophils # Man Lymphocytes # (Manual) Monocytes % (Manual) Eosinophils % (Manual) Monocytes # (Manual) Eosinophils # (Manual) D-Dimer Heparin Anti-Xa Level ABG pH POC ABG pCO2 POC ABG pO2 ABG pO2 ABG HCO3 ABG O2 Saturation ABG Base Excess ABG Hemoglobin ABG Oxyhemoglobin VBG pH ABG Sodium ABG Potassium ABG Glucose Oxyhemoglobin Sodium 135 L Potassium 5.3 H Chloride Carbon Dioxide 21 L BUN 103 H Creatinine 2.6 H Glucose 113 H POC Glucose 131 H 151 H Lactic Acid Calcium 8.1 L Ferritin AST Alkaline Phosphatase Magnesium Lactate Dehydrogenase Total Creatine Kinase CK-MB (CK-2) C-Reactive Protein Total Protein Albumin Troponin T HDL Cholesterol Arterial Blood Glucose Urine WBC (Auto) Urine Creatinine Urine Total Protein Phenytoin Coronavirus (PCR) Crossmatch 07/27/20 07/28/20 07/28/20 23:29 04:30 04:30 WBC RBC 2.50 L Hgb 7.3 L Hct 22.2 L MCHC RDW 17.3 H Lymph % (Auto) 8.7 L [place] % (Auto) 8.3 H Eos % (Auto) Lymph # [place] # Lymph # (Auto) 0.7 L [place] # (Auto) Eos # (Auto) Seg Neutrophils % 79.1 H Seg Neuts % (Manual) Lymphocytes % (Manual) Seg Neutrophils # Seg Neutrophils # Man Lymphocytes # (Manual) Monocytes % (Manual) Eosinophils % (Manual) Monocytes # (Manual) Eosinophils # (Manual) D-Dimer Heparin Anti-Xa Level ABG pH POC ABG pCO2 POC ABG pO2 ABG pO2 ABG HCO3 ABG O2 Saturation ABG Base Excess ABG Hemoglobin ABG Oxyhemoglobin VBG pH ABG Sodium ABG Potassium ABG Glucose Oxyhemoglobin Sodium 135 L Potassium 5.2 H Chloride 96.8 L Carbon Dioxide 20 L BUN 107 H Creatinine 2.9 H Glucose POC Glucose 124 H Lactic Acid Calcium 8.2 L Ferritin AST Alkaline Phosphatase Magnesium 2.70 H Lactate Dehydrogenase Total Creatine Kinase CK-MB (CK-2) C-Reactive Protein Total Protein Albumin Troponin T HDL Cholesterol Arterial Blood Glucose Urine WBC (Auto) Urine Creatinine Urine Total Protein Phenytoin Coronavirus (PCR) Crossmatch 07/28/20 07/29/20 07/29/20 17:35 00:11 06:45 WBC RBC Hgb Hct MCHC RDW Lymph % (Auto) [place] % (Auto) Eos % (Auto) Lymph # [place] # Lymph # (Auto) [place] # (Auto) Eos # (Auto) Seg Neutrophils % Seg Neuts % (Manual) Lymphocytes % (Manual) Seg Neutrophils # Seg Neutrophils # Man Lymphocytes # (Manual) Monocytes % (Manual) Eosinophils % (Manual) Monocytes # (Manual) Eosinophils # (Manual) D-Dimer Heparin Anti-Xa Level ABG pH POC ABG pCO2 POC ABG pO2 ABG pO2 ABG HCO3 ABG O2 Saturation ABG Base Excess ABG Hemoglobin ABG Oxyhemoglobin VBG pH ABG Sodium ABG Potassium ABG Glucose Oxyhemoglobin Sodium Potassium Chloride Carbon Dioxide BUN Creatinine Glucose POC Glucose 146 H 143 H 179 H Lactic Acid Calcium Ferritin AST Alkaline Phosphatase Magnesium Lactate Dehydrogenase Total Creatine Kinase CK-MB (CK-2) C-Reactive Protein Total Protein Albumin Troponin T HDL Cholesterol Arterial Blood Glucose Urine WBC (Auto) Urine Creatinine Urine Total Protein Phenytoin Coronavirus (PCR) Crossmatch 07/29/20 07/29/20 07/29/20 11:54 13:01 13:01 WBC RBC 2.40 L Hgb 7.1 L Hct 20.9 L MCHC RDW 17.5 H Lymph % (Auto) [place] % (Auto) Eos % (Auto) Lymph # [place] # Lymph # (Auto) [place] # (Auto) Eos # (Auto) Seg Neutrophils % Seg Neuts % (Manual) 86.0 H Lymphocytes % (Manual) 6.0 L Seg Neutrophils # Seg Neutrophils # Man 8.9 H Lymphocytes # (Manual) 0.6 L Monocytes % (Manual) 8.0 H Eosinophils % (Manual) Monocytes # (Manual) Eosinophils # (Manual) D-Dimer Heparin Anti-Xa Level ABG pH POC ABG pCO2 POC ABG pO2 ABG pO2 ABG HCO3 ABG O2 Saturation ABG Base Excess ABG Hemoglobin ABG Oxyhemoglobin VBG pH ABG Sodium ABG Potassium ABG Glucose Oxyhemoglobin Sodium 129 L Potassium Chloride 92.9 L Carbon Dioxide BUN 112 H Creatinine 3.0 H Glucose 142 H POC Glucose 170 H Lactic Acid Calcium 7.9 L Ferritin AST Alkaline Phosphatase Magnesium Lactate Dehydrogenase Total Creatine Kinase CK-MB (CK-2) C-Reactive Protein Total Protein Albumin Troponin T HDL Cholesterol Arterial Blood Glucose Urine WBC (Auto) Urine Creatinine Urine Total Protein Phenytoin Coronavirus (PCR) Crossmatch 07/29/20 07/30/20 07/30/20 22:45 05:01 11:45 WBC RBC Hgb Hct MCHC RDW Lymph % (Auto) [place] % (Auto) Eos % (Auto) Lymph # [place] # Lymph # (Auto) [place] # (Auto) Eos # (Auto) Seg Neutrophils % Seg Neuts % (Manual) Lymphocytes % (Manual) Seg Neutrophils # Seg Neutrophils # Man Lymphocytes # (Manual) Monocytes % (Manual) Eosinophils % (Manual) Monocytes # (Manual) Eosinophils # (Manual) D-Dimer Heparin Anti-Xa Level ABG pH POC ABG pCO2 POC ABG pO2 ABG pO2 ABG HCO3 ABG O2 Saturation ABG Base Excess ABG Hemoglobin ABG Oxyhemoglobin VBG pH ABG Sodium ABG Potassium ABG Glucose Oxyhemoglobin Sodium Potassium Chloride Carbon Dioxide BUN Creatinine Glucose POC Glucose 129 H 150 H 130 H Lactic Acid Calcium Ferritin AST Alkaline Phosphatase Magnesium Lactate Dehydrogenase Total Creatine Kinase CK-MB (CK-2) C-Reactive Protein Total Protein Albumin Troponin T HDL Cholesterol Arterial Blood Glucose Urine WBC (Auto) Urine Creatinine Urine Total Protein Phenytoin Coronavirus (PCR) Crossmatch 07/30/20 07/30/20 07/30/20 17:54 21:26 23:58 WBC RBC Hgb Hct MCHC RDW Lymph % (Auto) [place] % (Auto) Eos % (Auto) Lymph # [place] # Lymph # (Auto) [place] # (Auto) Eos # (Auto) Seg Neutrophils % Seg Neuts % (Manual) Lymphocytes % (Manual) Seg Neutrophils # Seg Neutrophils # Man Lymphocytes # (Manual) Monocytes % (Manual) Eosinophils % (Manual) Monocytes # (Manual) Eosinophils # (Manual) D-Dimer Heparin Anti-Xa Level ABG pH POC ABG pCO2 POC ABG pO2 ABG pO2 ABG HCO3 ABG O2 Saturation ABG Base Excess ABG Hemoglobin ABG Oxyhemoglobin VBG pH ABG Sodium ABG Potassium ABG Glucose Oxyhemoglobin Sodium Potassium Chloride Carbon Dioxide BUN Creatinine Glucose POC Glucose 143 H 124 H 142 H Lactic Acid Calcium Ferritin AST Alkaline Phosphatase Magnesium Lactate Dehydrogenase Total Creatine Kinase CK-MB (CK-2) C-Reactive Protein Total Protein Albumin Troponin T HDL Cholesterol Arterial Blood Glucose Urine WBC (Auto) Urine Creatinine Urine Total Protein Phenytoin Coronavirus (PCR) Crossmatch 07/31/20 07/31/20 07/31/20 05:43 11:35 18:07 WBC RBC Hgb Hct MCHC RDW Lymph % (Auto) [place] % (Auto) Eos % (Auto) Lymph # [place] # Lymph # (Auto) [place] # (Auto) Eos # (Auto) Seg Neutrophils % Seg Neuts % (Manual) Lymphocytes % (Manual) Seg Neutrophils # Seg Neutrophils # Man Lymphocytes # (Manual) Monocytes % (Manual) Eosinophils % (Manual) Monocytes # (Manual) Eosinophils # (Manual) D-Dimer Heparin Anti-Xa Level ABG pH POC ABG pCO2 POC ABG pO2 ABG pO2 ABG HCO3 ABG O2 Saturation ABG Base Excess ABG Hemoglobin ABG Oxyhemoglobin VBG pH ABG Sodium ABG Potassium ABG Glucose Oxyhemoglobin Sodium Potassium Chloride Carbon Dioxide BUN Creatinine Glucose POC Glucose 152 H 179 H 129 H Lactic Acid Calcium Ferritin AST Alkaline Phosphatase Magnesium Lactate Dehydrogenase Total Creatine Kinase CK-MB (CK-2) C-Reactive Protein Total Protein Albumin Troponin T HDL Cholesterol Arterial Blood Glucose Urine WBC (Auto) Urine Creatinine Urine Total Protein Phenytoin Coronavirus (PCR) Crossmatch 07/31/20 07/31/20 08/01/20 21:30 22:12 00:25 WBC RBC Hgb Hct MCHC RDW Lymph % (Auto) [place] % (Auto) Eos % (Auto) Lymph # [place] # Lymph # (Auto) [place] # (Auto) Eos # (Auto) Seg Neutrophils % Seg Neuts % (Manual) Lymphocytes % (Manual) Seg Neutrophils # Seg Neutrophils # Man Lymphocytes # (Manual) Monocytes % (Manual) Eosinophils % (Manual) Monocytes # (Manual) Eosinophils # (Manual) D-Dimer Heparin Anti-Xa Level ABG pH POC ABG pCO2 POC ABG pO2 ABG pO2 ABG HCO3 ABG O2 Saturation ABG Base Excess ABG Hemoglobin ABG Oxyhemoglobin VBG pH ABG Sodium ABG Potassium ABG Glucose Oxyhemoglobin Sodium Potassium Chloride Carbon Dioxide BUN Creatinine Glucose POC Glucose 143 H 122 H 134 H Lactic Acid Calcium Ferritin AST Alkaline Phosphatase Magnesium Lactate Dehydrogenase Total Creatine Kinase CK-MB (CK-2) C-Reactive Protein Total Protein Albumin Troponin T HDL Cholesterol Arterial Blood Glucose Urine WBC (Auto) Urine Creatinine Urine Total Protein Phenytoin Coronavirus (PCR) Crossmatch 08/01/20 08/01/20 08/01/20 04:43 05:41 12:23 WBC RBC Hgb Hct MCHC RDW Lymph % (Auto) [place] % (Auto) Eos % (Auto) Lymph # [place] # Lymph # (Auto) [place] # (Auto) Eos # (Auto) Seg Neutrophils % Seg Neuts % (Manual) Lymphocytes % (Manual) Seg Neutrophils # Seg Neutrophils # Man Lymphocytes # (Manual) Monocytes % (Manual) Eosinophils % (Manual) Monocytes # (Manual) Eosinophils # (Manual) D-Dimer Heparin Anti-Xa Level ABG pH POC ABG pCO2 POC ABG pO2 ABG pO2 ABG HCO3 ABG O2 Saturation ABG Base Excess ABG Hemoglobin ABG Oxyhemoglobin VBG pH ABG Sodium ABG Potassium ABG Glucose Oxyhemoglobin Sodium 128 L Potassium 5.8 H Chloride 90.5 L Carbon Dioxide 19 L BUN 122 H Creatinine 3.4 H Glucose 124 H POC Glucose 130 H 128 H Lactic Acid Calcium 8.0 L Ferritin AST Alkaline Phosphatase Magnesium Lactate Dehydrogenase Total Creatine Kinase CK-MB (CK-2) C-Reactive Protein Total Protein Albumin Troponin T HDL Cholesterol Arterial Blood Glucose Urine WBC (Auto) Urine Creatinine Urine Total Protein Phenytoin Coronavirus (PCR) Crossmatch 08/01/20 08/02/20 08/02/20 17:28 00:06 05:32 WBC RBC Hgb Hct MCHC RDW Lymph % (Auto) [place] % (Auto) Eos % (Auto) Lymph # [place] # Lymph # (Auto) [place] # (Auto) Eos # (Auto) Seg Neutrophils % Seg Neuts % (Manual) Lymphocytes % (Manual) Seg Neutrophils # Seg Neutrophils # Man Lymphocytes # (Manual) Monocytes % (Manual) Eosinophils % (Manual) Monocytes # (Manual) Eosinophils # (Manual) D-Dimer Heparin Anti-Xa Level ABG pH POC ABG pCO2 POC ABG pO2 ABG pO2 ABG HCO3 ABG O2 Saturation ABG Base Excess ABG Hemoglobin ABG Oxyhemoglobin VBG pH ABG Sodium ABG Potassium ABG Glucose Oxyhemoglobin Sodium Potassium Chloride Carbon Dioxide BUN Creatinine Glucose POC Glucose 121 H 128 H 177 H Lactic Acid Calcium Ferritin AST Alkaline Phosphatase Magnesium Lactate Dehydrogenase Total Creatine Kinase CK-MB (CK-2) C-Reactive Protein Total Protein Albumin Troponin T HDL Cholesterol Arterial Blood Glucose Urine WBC (Auto) Urine Creatinine Urine Total Protein Phenytoin Coronavirus (PCR) Crossmatch 08/02/20 08/02/20 08/03/20 11:25 12:34 00:08 WBC RBC Hgb Hct MCHC RDW Lymph % (Auto) [place] % (Auto) Eos % (Auto) Lymph # [place] # Lymph # (Auto) [place] # (Auto) Eos # (Auto) Seg Neutrophils % Seg Neuts % (Manual) Lymphocytes % (Manual) Seg Neutrophils # Seg Neutrophils # Man Lymphocytes # (Manual) Monocytes % (Manual) Eosinophils % (Manual) Monocytes # (Manual) Eosinophils # (Manual) D-Dimer Heparin Anti-Xa Level ABG pH 7.344 L POC ABG pCO2 POC ABG pO2 ABG pO2 101.1 H ABG HCO3 ABG O2 Saturation ABG Base Excess -4.5 L ABG Hemoglobin 6.6 L ABG Oxyhemoglobin VBG pH ABG Sodium ABG Potassium ABG Glucose Oxyhemoglobin Sodium Potassium Chloride Carbon Dioxide BUN Creatinine Glucose POC Glucose 196 H 141 H Lactic Acid Calcium Ferritin AST Alkaline Phosphatase Magnesium Lactate Dehydrogenase Total Creatine Kinase CK-MB (CK-2) C-Reactive Protein Total Protein Albumin Troponin T HDL Cholesterol Arterial Blood Glucose Urine WBC (Auto) Urine Creatinine Urine Total Protein Phenytoin Coronavirus (PCR) Crossmatch 08/03/20 08/03/20 08/03/20 04:38 04:38 04:38 WBC 14.3 H RBC 2.42 L Hgb 7.0 L Hct 21.5 L MCHC RDW 18.1 H Lymph % (Auto) [place] % (Auto) Eos % (Auto) Lymph # [place] # Lymph # (Auto) [place] # (Auto) Eos # (Auto) Seg Neutrophils % Seg Neuts % (Manual) Lymphocytes % (Manual) Seg Neutrophils # Seg Neutrophils # Man Lymphocytes # (Manual) Monocytes % (Manual) Eosinophils % (Manual) Monocytes # (Manual) Eosinophils # (Manual) D-Dimer Heparin Anti-Xa Level ABG pH POC ABG pCO2 POC ABG pO2 ABG pO2 ABG HCO3 ABG O2 Saturation ABG Base Excess ABG Hemoglobin ABG Oxyhemoglobin VBG pH ABG Sodium ABG Potassium ABG Glucose Oxyhemoglobin Sodium 130 L Potassium Chloride 90.1 L Carbon Dioxide 20 L BUN 105 H Creatinine 3.1 H Glucose 115 H POC Glucose Lactic Acid 0.40 L Calcium 8.2 L Ferritin AST Alkaline Phosphatase Magnesium Lactate Dehydrogenase Total Creatine Kinase CK-MB (CK-2) C-Reactive Protein Total Protein Albumin Troponin T HDL Cholesterol Arterial Blood Glucose Urine WBC (Auto) Urine Creatinine Urine Total Protein Phenytoin Coronavirus (PCR) Crossmatch 08/03/20 08/03/20 08/03/20 05:33 12:04 17:51 WBC RBC Hgb Hct MCHC RDW Lymph % (Auto) [place] % (Auto) Eos % (Auto) Lymph # [place] # Lymph # (Auto) [place] # (Auto) Eos # (Auto) Seg Neutrophils % Seg Neuts % (Manual) Lymphocytes % (Manual) Seg Neutrophils # Seg Neutrophils # Man Lymphocytes # (Manual) Monocytes % (Manual) Eosinophils % (Manual) Monocytes # (Manual) Eosinophils # (Manual) D-Dimer Heparin Anti-Xa Level ABG pH POC ABG pCO2 POC ABG pO2 ABG pO2 ABG HCO3 ABG O2 Saturation ABG Base Excess ABG Hemoglobin ABG Oxyhemoglobin VBG pH ABG Sodium ABG Potassium ABG Glucose Oxyhemoglobin Sodium Potassium Chloride Carbon Dioxide BUN Creatinine Glucose POC Glucose 117 H 115 H 123 H Lactic Acid Calcium Ferritin AST Alkaline Phosphatase Magnesium Lactate Dehydrogenase Total Creatine Kinase CK-MB (CK-2) C-Reactive Protein Total Protein Albumin Troponin T HDL Cholesterol Arterial Blood Glucose Urine WBC (Auto) Urine Creatinine Urine Total Protein Phenytoin Coronavirus (PCR) Crossmatch 08/03/20 08/04/20 08/04/20 23:25 01:41 05:34 WBC RBC 2.20 L Hgb 6.5 L Hct 19.5 L* MCHC RDW 18.5 H Lymph % (Auto) 9.2 L [place] % (Auto) 9.8 H Eos % (Auto) Lymph # [place] # Lymph # (Auto) 0.8 L [place] # (Auto) Eos # (Auto) Seg Neutrophils % 77.7 H Seg Neuts % (Manual) Lymphocytes % (Manual) Seg Neutrophils # Seg Neutrophils # Man Lymphocytes # (Manual) Monocytes % (Manual) Eosinophils % (Manual) Monocytes # (Manual) Eosinophils # (Manual) D-Dimer Heparin Anti-Xa Level ABG pH POC ABG pCO2 POC ABG pO2 ABG pO2 ABG HCO3 ABG O2 Saturation ABG Base Excess ABG Hemoglobin ABG Oxyhemoglobin VBG pH ABG Sodium ABG Potassium ABG Glucose Oxyhemoglobin Sodium Potassium Chloride Carbon Dioxide BUN Creatinine Glucose POC Glucose 122 H 112 H Lactic Acid Calcium Ferritin AST Alkaline Phosphatase Magnesium Lactate Dehydrogenase Total Creatine Kinase CK-MB (CK-2) C-Reactive Protein Total Protein Albumin Troponin T HDL Cholesterol Arterial Blood Glucose Urine WBC (Auto) Urine Creatinine Urine Total Protein Phenytoin Coronavirus (PCR) Crossmatch 08/04/20 08/04/20 08/05/20 12:19 17:42 00:25 WBC RBC Hgb Hct MCHC RDW Lymph % (Auto) [place] % (Auto) Eos % (Auto) Lymph # [place] # Lymph # (Auto) [place] # (Auto) Eos # (Auto) Seg Neutrophils % Seg Neuts % (Manual) Lymphocytes % (Manual) Seg Neutrophils # Seg Neutrophils # Man Lymphocytes # (Manual) Monocytes % (Manual) Eosinophils % (Manual) Monocytes # (Manual) Eosinophils # (Manual) D-Dimer Heparin Anti-Xa Level ABG pH POC ABG pCO2 POC ABG pO2 ABG pO2 ABG HCO3 ABG O2 Saturation ABG Base Excess ABG Hemoglobin ABG Oxyhemoglobin VBG pH ABG Sodium ABG Potassium ABG Glucose Oxyhemoglobin Sodium Potassium Chloride Carbon Dioxide BUN Creatinine Glucose POC Glucose 108 H 113 H 119 H Lactic Acid Calcium Ferritin AST Alkaline Phosphatase Magnesium Lactate Dehydrogenase Total Creatine Kinase CK-MB (CK-2) C-Reactive Protein Total Protein Albumin Troponin T HDL Cholesterol Arterial Blood Glucose Urine WBC (Auto) Urine Creatinine Urine Total Protein Phenytoin Coronavirus (PCR) Crossmatch 08/05/20 08/05/20 08/05/20 05:24 05:35 05:35 WBC RBC 2.13 L Hgb 6.2 L Hct 18.9 L* MCHC RDW 18.7 H Lymph % (Auto) 10.0 L [place] % (Auto) 8.5 H Eos % (Auto) Lymph # [place] # Lymph # (Auto) 0.8 L [place] # (Auto) Eos # (Auto) Seg Neutrophils % 78.1 H Seg Neuts % (Manual) Lymphocytes % (Manual) Seg Neutrophils # Seg Neutrophils # Man Lymphocytes # (Manual) Monocytes % (Manual) Eosinophils % (Manual) Monocytes # (Manual) Eosinophils # (Manual) D-Dimer Heparin Anti-Xa Level ABG pH POC ABG pCO2 POC ABG pO2 ABG pO2 ABG HCO3 ABG O2 Saturation ABG Base Excess ABG Hemoglobin ABG Oxyhemoglobin VBG pH ABG Sodium ABG Potassium ABG Glucose Oxyhemoglobin Sodium 135 L Potassium Chloride 96.3 L Carbon Dioxide BUN 89 H Creatinine 2.8 H Glucose 116 H POC Glucose 138 H Lactic Acid Calcium 7.5 L Ferritin AST 53 H Alkaline Phosphatase 501 H Magnesium Lactate Dehydrogenase Total Creatine Kinase CK-MB (CK-2) C-Reactive Protein Total Protein 6.1 L Albumin 2.2 L Troponin T HDL Cholesterol Arterial Blood Glucose Urine WBC (Auto) Urine Creatinine Urine Total Protein Phenytoin Coronavirus (PCR) Crossmatch 08/05/20 08/05/20 08/05/20 09:15 12:17 18:00 WBC RBC Hgb Hct MCHC RDW Lymph % (Auto) [place] % (Auto) Eos % (Auto) Lymph # [place] # Lymph # (Auto) [place] # (Auto) Eos # (Auto) Seg Neutrophils % Seg Neuts % (Manual) Lymphocytes % (Manual) Seg Neutrophils # Seg Neutrophils # Man Lymphocytes # (Manual) Monocytes % (Manual) Eosinophils % (Manual) Monocytes # (Manual) Eosinophils # (Manual) D-Dimer Heparin Anti-Xa Level ABG pH POC ABG pCO2 POC ABG pO2 ABG pO2 ABG HCO3 ABG O2 Saturation ABG Base Excess ABG Hemoglobin ABG Oxyhemoglobin VBG pH ABG Sodium ABG Potassium ABG Glucose Oxyhemoglobin Sodium Potassium Chloride Carbon Dioxide BUN Creatinine Glucose POC Glucose 126 H 143 H Lactic Acid Calcium Ferritin AST Alkaline Phosphatase Magnesium Lactate Dehydrogenase Total Creatine Kinase CK-MB (CK-2) C-Reactive Protein Total Protein Albumin Troponin T HDL Cholesterol Arterial Blood Glucose Urine WBC (Auto) Urine Creatinine Urine Total Protein Phenytoin Coronavirus (PCR) Crossmatch See Detail 08/06/20 08/06/20 08/07/20 00:50 04:30 04:40 WBC RBC 2.43 L 2.48 L Hgb 7.2 L 7.4 L Hct 21.7 L 22.1 L MCHC RDW 18.1 H 18.1 H Lymph % (Auto) 9.9 L 11.7 L [place] % (Auto) 10.5 H 8.6 H Eos % (Auto) Lymph # [place] # Lymph # (Auto) 0.7 L 0.9 L [place] # (Auto) Eos # (Auto) Seg Neutrophils % 75.1 H 76.1 H Seg Neuts % (Manual) Lymphocytes % (Manual) Seg Neutrophils # Seg Neutrophils # Man Lymphocytes # (Manual) Monocytes % (Manual) Eosinophils % (Manual) Monocytes # (Manual) Eosinophils # (Manual) D-Dimer Heparin Anti-Xa Level ABG pH POC ABG pCO2 POC ABG pO2 ABG pO2 ABG HCO3 ABG O2 Saturation ABG Base Excess ABG Hemoglobin ABG Oxyhemoglobin VBG pH ABG Sodium ABG Potassium ABG Glucose Oxyhemoglobin Sodium Potassium Chloride Carbon Dioxide BUN Creatinine Glucose POC Glucose 117 H Lactic Acid Calcium Ferritin AST Alkaline Phosphatase Magnesium Lactate Dehydrogenase Total Creatine Kinase CK-MB (CK-2) C-Reactive Protein Total Protein Albumin Troponin T HDL Cholesterol Arterial Blood Glucose Urine WBC (Auto) Urine Creatinine Urine Total Protein Phenytoin Coronavirus (PCR) Crossmatch 08/07/20 08/07/20 08/08/20 05:44 06:00 00:03 WBC RBC Hgb Hct MCHC RDW Lymph % (Auto) [place] % (Auto) Eos % (Auto) Lymph # [place] # Lymph # (Auto) [place] # (Auto) Eos # (Auto) Seg Neutrophils % Seg Neuts % (Manual) Lymphocytes % (Manual) Seg Neutrophils # Seg Neutrophils # Man Lymphocytes # (Manual) Monocytes % (Manual) Eosinophils % (Manual) Monocytes # (Manual) Eosinophils # (Manual) D-Dimer Heparin Anti-Xa Level ABG pH POC ABG pCO2 POC ABG pO2 ABG pO2 ABG HCO3 ABG O2 Saturation ABG Base Excess ABG Hemoglobin ABG Oxyhemoglobin VBG pH ABG Sodium ABG Potassium ABG Glucose Oxyhemoglobin Sodium 132 L Potassium 3.3 L Chloride 92.8 L Carbon Dioxide BUN 64 H Creatinine 2.4 H Glucose POC Glucose 58 L 125 H Lactic Acid Calcium 7.0 L Ferritin AST Alkaline Phosphatase Magnesium Lactate Dehydrogenase Total Creatine Kinase CK-MB (CK-2) C-Reactive Protein Total Protein Albumin Troponin T HDL Cholesterol Arterial Blood Glucose Urine WBC (Auto) Urine Creatinine Urine Total Protein Phenytoin Coronavirus (PCR) Crossmatch 08/08/20 08/08/20 08/08/20 12:58 15:00 15:00 WBC RBC 2.36 L Hgb 7.1 L Hct 21.4 L MCHC RDW 18.3 H Lymph % (Auto) [place] % (Auto) Eos % (Auto) Lymph # [place] # Lymph # (Auto) [place] # (Auto) Eos # (Auto) Seg Neutrophils % Seg Neuts % (Manual) Lymphocytes % (Manual) Seg Neutrophils # Seg Neutrophils # Man Lymphocytes # (Manual) Monocytes % (Manual) Eosinophils % (Manual) Monocytes # (Manual) Eosinophils # (Manual) D-Dimer Heparin Anti-Xa Level ABG pH POC ABG pCO2 POC ABG pO2 ABG pO2 ABG HCO3 ABG O2 Saturation ABG Base Excess ABG Hemoglobin ABG Oxyhemoglobin VBG pH ABG Sodium ABG Potassium ABG Glucose Oxyhemoglobin Sodium Potassium Chloride Carbon Dioxide BUN Creatinine Glucose POC Glucose 134 H Lactic Acid Calcium Ferritin AST Alkaline Phosphatase Magnesium Lactate Dehydrogenase Total Creatine Kinase CK-MB (CK-2) C-Reactive Protein Total Protein Albumin Troponin T HDL Cholesterol Arterial Blood Glucose Urine WBC (Auto) Urine Creatinine Urine Total Protein Phenytoin 4.7 L Coronavirus (PCR) Crossmatch 08/08/20 08/08/20 08/09/20 15:00 17:39 00:00 WBC RBC Hgb Hct MCHC RDW Lymph % (Auto) [place] % (Auto) Eos % (Auto) Lymph # [place] # Lymph # (Auto) [place] # (Auto) Eos # (Auto) Seg Neutrophils % Seg Neuts % (Manual) Lymphocytes % (Manual) Seg Neutrophils # Seg Neutrophils # Man Lymphocytes # (Manual) Monocytes % (Manual) Eosinophils % (Manual) Monocytes # (Manual) Eosinophils # (Manual) D-Dimer Heparin Anti-Xa Level ABG pH POC ABG pCO2 POC ABG pO2 ABG pO2 ABG HCO3 ABG O2 Saturation ABG Base Excess ABG Hemoglobin ABG Oxyhemoglobin VBG pH ABG Sodium ABG Potassium ABG Glucose Oxyhemoglobin Sodium 130 L Potassium 3.1 L Chloride 91.5 L Carbon Dioxide BUN 52 H Creatinine 2.3 H Glucose 135 H POC Glucose 131 H 129 H Lactic Acid Calcium 7.3 L Ferritin AST Alkaline Phosphatase Magnesium Lactate Dehydrogenase Total Creatine Kinase CK-MB (CK-2) C-Reactive Protein Total Protein Albumin Troponin T HDL Cholesterol Arterial Blood Glucose Urine WBC (Auto) Urine Creatinine Urine Total Protein Phenytoin Coronavirus (PCR) Crossmatch 08/09/20 08/09/20 08/11/20 05:05 07:49 03:55 WBC RBC 2.22 L Hgb 6.9 L Hct 20.1 L MCHC RDW 18.3 H Lymph % (Auto) 11.2 L [place] % (Auto) 8.8 H Eos % (Auto) Lymph # [place] # Lymph # (Auto) 0.8 L [place] # (Auto) Eos # (Auto) Seg Neutrophils % 76.3 H Seg Neuts % (Manual) Lymphocytes % (Manual) Seg Neutrophils # Seg Neutrophils # Man Lymphocytes # (Manual) Monocytes % (Manual) Eosinophils % (Manual) Monocytes # (Manual) Eosinophils # (Manual) D-Dimer Heparin Anti-Xa Level ABG pH POC ABG pCO2 POC ABG pO2 ABG pO2 ABG HCO3 ABG O2 Saturation ABG Base Excess ABG Hemoglobin ABG Oxyhemoglobin VBG pH ABG Sodium ABG Potassium ABG Glucose Oxyhemoglobin Sodium 130 L Potassium Chloride 90.1 L Carbon Dioxide BUN 56 H Creatinine 2.4 H Glucose 104 H POC Glucose 111 H Lactic Acid Calcium 7.4 L Ferritin AST Alkaline Phosphatase Magnesium Lactate Dehydrogenase Total Creatine Kinase CK-MB (CK-2) C-Reactive Protein Total Protein Albumin Troponin T HDL Cholesterol Arterial Blood Glucose Urine WBC (Auto) Urine Creatinine Urine Total Protein Phenytoin Coronavirus (PCR) Crossmatch 08/11/20 08/11/20 03:55 05:39 WBC RBC Hgb Hct MCHC RDW Lymph % (Auto) [place] % (Auto) Eos % (Auto) Lymph # [place] # Lymph # (Auto) [place] # (Auto) Eos # (Auto) Seg Neutrophils % Seg Neuts % (Manual) Lymphocytes % (Manual) Seg Neutrophils # Seg Neutrophils # Man Lymphocytes # (Manual) Monocytes % (Manual) Eosinophils % (Manual) Monocytes # (Manual) Eosinophils # (Manual) D-Dimer Heparin Anti-Xa Level ABG pH POC ABG pCO2 POC ABG pO2 ABG pO2 ABG HCO3 ABG O2 Saturation ABG Base Excess ABG Hemoglobin ABG Oxyhemoglobin VBG pH ABG Sodium ABG Potassium ABG Glucose Oxyhemoglobin Sodium 135 L Potassium Chloride 94.5 L Carbon Dioxide BUN 48 H Creatinine 2.2 H Glucose 53 L POC Glucose < 40 L Lactic Acid Calcium 7.5 L Ferritin AST Alkaline Phosphatase Magnesium Lactate Dehydrogenase Total Creatine Kinase CK-MB (CK-2) C-Reactive Protein Total Protein Albumin Troponin T HDL Cholesterol Arterial Blood Glucose Urine WBC (Auto) Urine Creatinine Urine Total Protein Phenytoin Coronavirus (PCR) Crossmatch Chest x-ray: other (none today) Allied health notes reviewed: nursing
--- NOTE | 2020-08-11 09:03 | Progress Note ---
Assessment and Plan Assessment and plan: --Acute hypoxemic respiratory failure; vent dependent intubated on admission, extubated on 06/12/20 then placed on high flow o2 patient developed another respiratory arrest on 06/26 - reintubated Patient not tolerating weaning parameters CC following, Surgery evaluated the patient for trach and PEG COVID-19 test positive x3, trach and PEG pending -- Hypertension; well controlled Continue amlodipine, clonidine and hydralazine and minoxidil, closely monitor blood pressures PRN labetalol --s/p cardiopulmonary arrest on admission, 06/26 and 07/01, EF 45-50% on 2d echo, medical Mx per cardiology --Bradycardia Patient is on dopamine and epinephrine for bradycardia beta-hugh discontinued, Heart rate is in the 60s to 70s --Anoxic brain injury, neurology consulted, neuro requested MRI brain, EEG MRI brain could not be done due to body habitus, --Seizures seizure precautions; continue Keppra, and Dilantin EEG showed epileptiform discharges per review of neurology note --Rectal bleeding; resolved --Acute blood loss anemia; total 4 units PRBC transfused monitor H&H, GI following, no plans of endoscopy --Severe sepsis; completed antibiotics per ID persistently positive for COVID-19 and treated for Klebsiella pneumoniae --COVID-19 b/l PNA Completed remdesivir on 06/02 Completed dexamethasone - Last dose 06/07 COVID 19 test positive x 3 during this admission --Superficial left cephalic vein DVT/elevated D-dimers[COVID 19] Patient initially started on heparin drip from 05/29/20 D-dimers improved [id number] treated with Eliquis 5 mg twice a day for 1 week[per ID] stop date 06/26/2020 -- Acute toxic metabolic encephalopathy, POA likely from sepsis and s/p cardiac arrest with possible anoxic injury -- Acute renal failure: Worsening BUN/creatinine 123/3.4 > 105/3.1 avoid nephrotoxins, Nephrology note reviewed Status post right femoral vascular catheter placement started on hemodialysis Discussed with Dr. Koehler --Klebsiella pneumonia: ID evaluated completed second round of 5 days of cefepime on 07/04/2020 --Acute on chronic systolic heart failure Cardiology following. Ef 45% --Transaminitis. Etiology likely from COVID-19. cont to monitor --Hyperkalemia; improved --Hyponatremia Monitor electrolytes, now on HD --Shock; resolved -- DVT prophylaxis Eliquis, SCD to bilateral lower extremities while in bed -- Advance care planning Patient is critically ill with multiple medical problems Poor prognosis. --DNR status; The high probability of a clinically significant, sudden or life threatening deterioration of the [INSPECTING ENGINEER, CVS, renal] system(s) required my full and direct attention, intervention and personal management. The aggregate critical care time was [34] minutes. This time is in addition to time spent performing reported procedures but includes the following: [x] Data Review and interpretation [x] Patient assessment and monitoring of vital signs [x] Documentation [x] Medication orders and management Brief History: 64 YO Female with a medical history of HTN, Diastolic CHF, Pulmonary HTN, DM, Obesity Hypoventilation Syndrome presents to ED for evaluation of shortness of breath. As per staff, the EMS was notified for difficulty breathing. Upon arrival to the patient's home the patient was found to be in distress and was subsequently transported to [facility] for further evaluation and care. In route to [facility] the patient developed cardiac arrest and was treated in accordance with ACLS protocol with return of ROSC. Patient was seen and evaluated in the emergency department and was intubated and placed on ventilatory support. Patient admitted to ICU. Critical care team consulted in ED. She was found to have COVID-19 infection and was started on steroids and remdesivir. ID was consulted. Cardiology was consulted for her systolic heart failure and cardiac arrest. Patient completed treatment for COVID-19, then develop superimposed bacterial pneumonia with Klebsiella. She is now extubated, 06/12/2020 but remains confused and requiring high flow O2 and intermittent BiPAP. Patient had another cardiac arrest reintubated 06/26/2020, currently in ICU vent dependent, unable to do trach and PEG due to persistent COVID-19 positive state, as well as anoxic brain injury, unable to get MRI , neurology following. History Interval history: I have seen and examined the patient at the bedside this morning in ICU Isolation precautions, PPE protocols strictly followed Patient remains intubated on ventilatory support unable to wean Patient's family just made her DNR and planning home hospice Patient is unresponsive morbidly obese On ventilatory support Vital signs noted Hospitalist Physical - Constitutional Vitals: Temp Pulse Resp BP Pulse Ox 98.6 F 76 25 H 134/53 98 08/11/20 03:42 08/11/20 07:30 08/11/20 07:30 08/11/20 07:30 08/11/20 07:30 General appearance: Present: no acute distress, well-nourished, obese (Morbidly obese), other (Intubated on ventilatory support) - EENT Eyes: Present: PERRL, EOM intact - Neck Neck: Present: supple, normal ROM - Respiratory Respiratory effort: normal Respiratory: bilateral: diminished, rhonchi, negative: rales, wheezing - Cardiovascular Rhythm: regular Heart Sounds: Present: S1 & S2 - Extremities Extremities: no ischemia, No edema - Abdominal General gastrointestinal: soft, non-tender, non-distended, normal bowel sounds - Integumentary Integumentary: Present: clear, warm - Psychiatric Psychiatric: other (Intubated on vent) - Neurologic Neurologic: other (Intubated on vent unresponsive) HEART Score - HEART Score Troponin: Troponin T 0.067 ng/mL (0.00-0.029) H 07/01/20 06:01 Results - Labs CBC & Chem 7: 08/11/20 03:55 08/11/20 03:55 Labs: Laboratory Last Values WBC 7.2 K/mm3 (4.5-11.0) 08/11/20 03:55 RBC 2.22 M/mm3 (3.65-5.03) L 08/11/20 03:55 Hgb 6.9 gm/dl (10.1-14.3) L 08/11/20 03:55 Hct 20.1 % (30.3-42.9) L 08/11/20 03:55 MCV 90 fl (79-97) 08/11/20 03:55 MCH 31 pg (28-32) 08/11/20 03:55 MCHC 34 % (30-34) 08/11/20 03:55 RDW 18.3 % (13.2-15.2) H 08/11/20 03:55 Plt Count 300 K/mm3 (140-440) 08/11/20 03:55 Lymph % (Auto) 11.2 % (13.4-35.0) L 08/11/20 03:55 [place] % (Auto) 8.8 % (0.0-7.3) H 08/11/20 03:55 Eos % (Auto) 3.0 % (0.0-4.3) 08/11/20 03:55 Baso % (Auto) 0.7 % (0.0-1.8) 08/11/20 03:55 Lymph # (Auto) 0.8 K/mm3 (1.2-5.4) L 08/11/20 03:55 [place] # (Auto) 0.6 K/mm3 (0.0-0.8) 08/11/20 03:55 Eos # (Auto) 0.2 K/mm3 (0.0-0.4) 08/11/20 03:55 Baso # (Auto) 0.1 K/mm3 (0.0-0.1) 08/11/20 03:55 Add Manual Diff Complete 07/29/20 13:01 Total Counted 100 07/29/20 13:01 Seg Neutrophils % 76.3 % (40.0-70.0) H 08/11/20 03:55 Seg Neuts % (Manual) 86.0 % (40.0-70.0) H 07/29/20 13:01 Band Neutrophils % 0 % 07/29/20 13:01 Lymphocytes % (Manual) 6.0 % (13.4-35.0) L 07/29/20 13:01 Reactive Lymphs % (Man) 0 % 07/29/20 13:01 Monocytes % (Manual) 8.0 % (0.0-7.3) H 07/29/20 13:01 Eosinophils % (Manual) 0 % (0.0-4.3) 07/29/20 13:01 Basophils % (Manual) 0 % (0.0-1.8) 07/29/20 13:01 Metamyelocytes % 0 % 07/29/20 13:01 Myelocytes % 0 % 07/29/20 13:01 Promyelocytes % 0 % 07/29/20 13:01 Blast Cells % 0 % 07/29/20 13:01 Nucleated RBC % Not Reportable 07/29/20 13:01 Seg Neutrophils # 5.5 K/mm3 (1.8-7.7) 08/11/20 03:55 Seg Neutrophils # Man 8.9 K/mm3 (1.8-7.7) H 07/29/20 13:01 Band Neutrophils # 0.0 K/mm3 07/29/20 13:01 Lymphocytes # (Manual) 0.6 K/mm3 (1.2-5.4) L 07/29/20 13:01 Abs React Lymphs (Man) 0.0 K/mm3 07/29/20 13:01 Monocytes # (Manual) 0.8 K/mm3 (0.0-0.8) 07/29/20 13:01 Eosinophils # (Manual) 0.0 K/mm3 (0.0-0.4) 07/29/20 13:01 Basophils # (Manual) 0.0 K/mm3 (0.0-0.1) 07/29/20 13:01 Metamyelocytes # 0.0 K/mm3 07/29/20 13:01 Myelocytes # 0.0 K/mm3 07/29/20 13:01 Promyelocytes # 0.0 K/mm3 07/29/20 13:01 Blast Cells # 0.0 K/mm3 07/29/20 13:01 WBC Morphology Not Reportable 07/29/20 13:01 Hypersegmented Neuts Not Reportable 07/29/20 13:01 Hyposegmented Neuts Not Reportable 07/29/20 13:01 Hypogranular Neuts Not Reportable 07/29/20 13:01 Smudge Cells Not Reportable 07/29/20 13:01 Toxic Granulation Not Reportable 07/29/20 13:01 Toxic Vacuolation Not Reportable 07/29/20 13:01 Dohle Bodies Not Reportable 07/29/20 13:01 Pelger-Huet Anomaly Not Reportable 07/29/20 13:01 Sanjuanita Rods Not Reportable 07/29/20 13:01 Platelet Estimate Consistent w auto 07/29/20 13:01 Clumped Platelets Not Reportable 07/29/20 13:01 Plt Clumps, EDTA Not Reportable 07/29/20 13:01 Large Platelets Not Reportable 07/29/20 13:01 Giant Platelets Not Reportable 07/29/20 13:01 Platelet Satelliting Not Reportable 07/29/20 13:01 Plt Morphology Comment Not Reportable 07/29/20 13:01 RBC Morphology Normal 07/29/20 13:01 Dimorphic RBCs Not Reportable 07/29/20 13:01 Polychromasia Not Reportable 07/29/20 13:01 Hypochromasia Not Reportable 07/29/20 13:01 Poikilocytosis Not Reportable 07/29/20 13:01 Anisocytosis Not Reportable 07/29/20 13:01 Microcytosis Not Reportable 07/29/20 13:01 Macrocytosis Not Reportable 07/29/20 13:01 Spherocytes Not Reportable 07/29/20 13:01 Pappenheimer Bodies Not Reportable 07/29/20 13:01 Sickle Cells Not Reportable 07/29/20 13:01 Target Cells Not Reportable 07/29/20 13:01 Tear Drop Cells Not Reportable 07/29/20 13:01 Ovalocytes Not Reportable 07/29/20 13:01 Helmet Cells Not Reportable 07/29/20 13:01 Jones-Lovelady Bodies Not Reportable 07/29/20 13:01 [place] Rings Not Reportable 07/29/20 13:01 Julia Cells Not Reportable 07/29/20 13:01 Bite Cells Not Reportable 07/29/20 13:01 Crenated Cell Not Reportable 07/29/20 13:01 Elliptocytes Not Reportable 07/29/20 13:01 Acanthocytes (Spur) Not Reportable 07/29/20 13:01 Rouleaux Not Reportable 07/29/20 13:01 Hemoglobin C Crystals Not Reportable 07/29/20 13:01 Schistocytes Not Reportable 07/29/20 13:01 Malaria parasites Not Reportable 07/29/20 13:01 Kev Bodies Not Reportable 07/29/20 13:01 Hem Pathologist Commnt No 07/29/20 13:01 PT 14.2 Sec. (12.2-14.9) 05/29/20 15:10 INR 1.08 (0.87-1.13) 05/29/20 15:10 APTT 27.2 Sec. (24.2-36.6) 05/29/20 15:10 D-Dimer 2310.15 ng/mlDDU (0-234) H 06/29/20 14:45 Heparin Anti-Xa Level 0.34 U.I./ml (0.3-0.7) 06/19/20 10:46 ABG pH 7.344 pH Units (7.350-7.450) L 08/02/20 11:25 POC ABG pCO2 44.1 mmHg (32.0-48.0) 07/18/20 04:24 ABG pCO2 39.0 mm Hg 08/02/20 11:25 ABG Oxyhemoglobin 92.6 (94-98) L 06/23/20 12:34 POC ABG pO2 86.8 mmHg (83-108) 07/18/20 04:24 ABG pO2 101.1 mm Hg (80.0-90.0) H 08/02/20 11:25 POC ABG HCO3 25.6 07/18/20 04:24 ABG HCO3 20.8 mmol/L (20.0-26.0) 08/02/20 11:25 ABG O2 Saturation 97.5 % (95.0-99.0) 08/02/20 11:25 ABG O2 Content 9.1 (0.0-44) 08/02/20 11:25 POC ABG Base Excess 0.4 07/18/20 04:24 ABG Base Excess -4.5 mmol/L (-2.0-3.0) L 08/02/20 11:25 ABG Hemoglobin 6.6 gm/dl (12.0-16.0) L 08/02/20 11:25 ABG Carboxyhemoglobin 1.8 % (0.0-5.0) 08/02/20 11:25 ABG Methemoglobin 0.2 % (0.0-1.5) 08/02/20 11:25 VBG pH 7.152 (7.320-7.420) L* 05/28/20 13:47 ABG Sodium 131.6 mmol/L (136.0-145.0) L 07/18/20 04:24 ABG Potassium 4.9 mmol/L (3.40-4.50) H 07/18/20 04:24 ABG Chloride 104.0 mmol/L (98-107) 07/18/20 04:24 ABG Glucose 131 mg/dL (65-95) H 07/18/20 04:24 Carboxyhemoglobin 0.5 (0.5-1.5) 06/23/20 12:34 Oxyhemoglobin 95.5 % (95.0-99.0) 08/02/20 11:25 FiO2 30 % 08/02/20 11:25 Sodium 135 mmol/L (137-145) L 08/11/20 03:55 Potassium 3.7 mmol/L (3.6-5.0) 08/11/20 03:55 Chloride 94.5 mmol/L (98-107) L 08/11/20 03:55 Carbon Dioxide 27 mmol/L (22-30) 08/11/20 03:55 Anion Gap 17 mmol/L 08/11/20 03:55 BUN 48 mg/dL (7-17) H 08/11/20 03:55 Creatinine 2.2 mg/dL (0.6-1.2) H 08/11/20 03:55 Estimated GFR 23 ml/min 08/11/20 03:55 BUN/Creatinine Ratio 22 % 08/11/20 03:55 Glucose 53 mg/dL (65-100) L 08/11/20 03:55 POC Glucose 72 mg/dL (70-105) 08/11/20 06:19 Lactic Acid 0.40 mmol/L (0.7-2.0) L 08/03/20 04:38 Calcium 7.5 mg/dL (8.4-10.2) L 08/11/20 03:55 Ferritin 223.6 ng/mL (10.0-200.0) H 06/29/20 14:45 Magnesium 2.70 mg/dL (1.7-2.3) H 07/28/20 04:30 Lactate Dehydrogenase 367 units/L (91-180) H 06/29/20 14:45 Total Bilirubin 0.20 mg/dL (0.1-1.2) 08/05/20 05:35 AST 53 units/L (5-40) H 08/05/20 05:35 ALT 44 units/L (7-56) 08/05/20 05:35 Alkaline Phosphatase 501 units/L (35-129) H 08/05/20 05:35 C-Reactive Protein 3.60 mg/dL (0.00-1.30) H 06/29/20 14:45 Total Creatine Kinase 300 units/L (30-135) H 07/01/20 06:01 CK-MB (CK-2) 2.0 ng/mL (0.0-4.0) 07/01/20 06:01 CK-MB (CK-2) Rel Index 0.6 (0-4) 07/01/20 06:01 Troponin T 0.067 ng/mL (0.00-0.029) H 07/01/20 06:01 Total Protein 6.1 g/dL (6.3-8.2) L 08/05/20 05:35 Albumin 2.2 g/dL (3.9-5) L 08/05/20 05:35 Albumin/Globulin Ratio 0.6 % 08/05/20 05:35 Triglycerides 142 mg/dL (2-149) 07/01/20 06:01 Cholesterol 137 mg/dL (50-199) 07/01/20 06:01 LDL Cholesterol Direct 62 mg/dL (50-130) 07/01/20 06:01 HDL Cholesterol 61 mg/dL (40-59) H 07/01/20 06:01 Cholesterol/HDL Ratio 2.24 % 07/01/20 06:01 Procalcitonin 0.18 ng/mL (<0.15) 07/14/20 04:55 Arterial Blood Glucose 131 mg/dL (65-95) H 07/18/20 04:24 Arterial Blood Ionized Calcium 5.1 mg/dL (4.6-5.3) 07/18/20 04:24 Urine Color Yellow (Yellow) 06/06/20 04:00 Urine Turbidity Cloudy (Clear) 06/06/20 04:00 Urine pH 5.0 (5.0-7.0) 06/06/20 04:00 Ur Specific [place] 1.012 (1.003-1.030) 06/06/20 04:00 Urine Protein 100 mg/dl mg/dL (Negative) 06/06/20 04:00 Urine Glucose (UA) 50 mg/dL (Negative) 06/06/20 04:00 Urine Ketones Neg mg/dL (Negative) 06/06/20 04:00 Urine Blood Sm (Negative) 06/06/20 04:00 Urine Nitrite Neg (Negative) 06/06/20 04:00 Urine Bilirubin Neg (Negative) 06/06/20 04:00 Urine Urobilinogen < 2.0 mg/dL (<2.0) 06/06/20 04:00 Ur Leukocyte Esterase Neg (Negative) 06/06/20 04:00 Urine WBC (Auto) 15.0 /HPF (0.0-6.0) H 06/06/20 04:00 Urine RBC (Auto) 23.0 /HPF (0.0-6.0) 06/06/20 04:00 U Epithel Cells (Auto) 8.0 /HPF (0-13.0) 06/06/20 04:00 Urine Bacteria (Auto) 2+ /HPF (Negative) 06/06/20 04:00 Amorphous Crystals 1+ 06/06/20 04:00 Hyaline Casts 16 /LPF 06/06/20 04:00 Urine Mucus 2+ /HPF 06/06/20 04:00 Urine Yeast (Budding) 2+ /HPF 06/03/20 Unknown Urine Creatinine 33.3 mg/dL (0.1-20.0) H 07/06/20 13:20 Urine Sodium 21 mmol/L 07/06/20 13:20 Urine Total Protein 196 mg/dL (5-11.8) H 06/06/20 04:00 Nasal Screen MRSA (PCR) Negative (Negative) 06/29/20 08:30 Phenytoin 4.7 ug/mL (10.0-20.0) L 08/08/20 15:00 Coronavirus (PCR) Negative (Negative) 08/09/20 09:50 Hepatitis A IgM Ab Non-reactive (NonReactive) 07/29/20 13:01 Hep Bs Antigen Non-reactive (Negative) 07/29/20 13:01 Hep B Core IgM Ab Non-reactive (NonReactive) 07/29/20 13:01 Hepatitis C Antibody Non-reactive (NonReactive) 07/29/20 13:01 Blood Type A POSITIVE 08/05/20 09:15 Antibody Screen Negative 08/05/20 09:15 Crossmatch See Detail 08/05/20 09:15 - Diagnostic Impressions Diagnostic Impressions: Echocardiogram Limited Views 05/29/20 13:52 Transthoracic Echocardiogram Indication: Pulm Embolus BP: 169/76 HR: 85 Conclusions *Limited study for RV size post cardiopulmonar arrest. *RV is only slightly dilated, no significant difference from prior echo 05/13/2020. *Global left ventricular systolic function is at the lower limits of normal. *The estimated ejection fraction is 45-50%. *Mild to moderate concentric left ventricular hypertrophy is observed. *The left and right atria are both mild to moderately dilated. Findings Left Ventricle: The left ventricular chamber size is mildly dilated. Mild to moderate concentric left ventricular hypertrophy is observed. Global left ventricular systolic function is at the lower limits of normal. The estimated ejection fraction is 45-50%. Left Atrium: The left atrium is mild to moderately dilated. Right Ventricle: The right ventricle is slightly dilated. Right Atrium: The right atrium is mild to moderately dilated. Aortic Valve: The aortic valve leaflets are moderately thickened. Mitral Valve: There is mitral annular calcification. The mitral valve leaflets are moderately thickened. Tricuspid Valve: The tricuspid valve leaflets are mildly thickened. Pericardium: A trivial pericardial effusion is visualized. NDUM: 05/29/20 1808 Amended Report Transthoracic Echocardiogram Indication: Pulm Embolus BP: 169/76 HR: 85 Conclusions *Limited study for RV size post cardiopulmonary arrest. *RV is only slightly dilated, no significant difference from prior echo 05/13/2020. *Global left ventricular systolic function is at the lower limits of normal. *The estimated ejection fraction is 45-50%. *Mild to moderate concentric left ventricular hypertrophy is observed. *The left and right atria are both mild to moderately dilated. Findings Left Ventricle: The left ventricular chamber size is mildly dilated. Mild to moderate concentric left ventricular hypertrophy is observed. Global left ventricular systolic function is at the lower limits of normal. The estimated ejection fraction is 45-50%. Left Atrium: The left atrium is mild to moderately dilated. Right Ventricle: The right ventricle is slightly dilated. Right Atrium: The right atrium is mild to moderately dilated. Aortic Valve: The aortic valve leaflets are moderately thickened. Mitral Valve: There is mitral annular calcification. The mitral valve leaflets are moderately thickened. Tricuspid Valve: The tricuspid valve leaflets are mildly thickened. Pericardium: A trivial pericardial effusion is visualized. Helm/IV: Voiding Method Indwelling Catheter IV Catheter Type [Right VAS Cath Femoral] IV Catheter Type [Left Forearm INT / Saline Lock ] IV Catheter Type [Left Wrist] Peripheral IV IV Catheter Type [Left Upper Peripheral IV arm] IV Catheter Type [Right CVL Internal Jugular] IV Catheter Type [Right Hand] Peripheral IV IV Catheter Type [Right Wrist] Not found on patient IV Catheter Type [Left Hand] INT / Saline Lock IV Catheter Type [Left INT / Saline Lock Antecubital] IV Catheter Type [Right Peripheral IV Forearm] IV Catheter Type [Left Leg] Intra-osseous Active Medications - Current Medications Current Medications: Generic Name Dose Route Start Last Admin Trade Name Freq PRN Reason Stop Dose Admin Acetaminophen 650 mg 06/09/20 10:57 06/29/20 21:18 Tylenol FEEDTUBE 650 mg Q6H PRN Administration Fever >101 Amlodipine Besylate 10 mg 06/02/20 11:00 08/09/20 09:59 Amlodipine PO 10 mg DAILY NELSON Administration Lipase/Protease/Amylase 1 each 05/29/20 13:39 08/10/20 22:[address] 10,500 Unit FEEDTUBE 1 each PRN PRN Administration For Clogged Feeding Tube Epoetin Javon 10,000 unit 07/29/20 11:29 08/10/20 12:08 Procrit IV 10,000 unit SCOTTY PRN Administration hemodialysis Furosemide 80 mg 08/08/20 18:00 08/11/20 06:44 Lasix IV 80 mg 0600,1800 NELSON Administration Glycopyrrolate 2 mg 06/09/20 14:00 08/10/20 20:54 Glycopyrrolate PO Not Given TID NELSON Heparin Sodium (Porcine) 5,000 unit 06/30/20 14:00 08/11/20 06:40 Heparin SUB-Q 5,000 unit Q8HR NELSON Administration Heparin Sodium (Porcine) 5,000 unit 07/29/20 11:29 08/02/20 23:15 Heparin IV 5,000 unit SCOTTY PRN Administration hemodialysis Hydralazine HCl 100 mg 07/14/20 14:00 08/10/20 20:42 Apresoline PO Not Given TID NELSON Hydrophilic Ointment 1 applic 05/28/20 13:49 Vaseline Lip Therapy TP Q2HR PRN Dry Lips Norepinephrine 4 mg in 250 mls @ 7.5 mls/hr 07/23/20 20:00 08/05/20 05:21 Levophed Drip 4 Mg/Ns 250 Ml IV 0 mcg/min TITR NELSON 0 mls/hr Titration Protocol 2 MCG/MIN Phenytoin 150 mg/ Sodium 103 mls @ 408 mls/hr 08/03/20 09:00 08/11/20 06:42 Chloride IV 408 mls/hr Q8HR NELSON Administration Sodium Chloride 100 mls @ 999 mls/hr 08/04/20 22:27 Nacl 0.9% IV SCOTTY PRN Hypotension Insulin Glargine 10 units 06/08/20 22:00 08/10/20 22:46 Lantus SUB-Q 10 units QHS NELSON Administration Insulin Human Lispro 0 unit 05/29/20 18:00 08/11/20 06:43 Humalog SUB-Q Not Given Q6H [facility] Protocol Labetalol HCl 20 mg 06/03/20 09:00 07/31/20 12:14 Labetalol IV 20 mg Q4H PRN Administration HYPERTENSION Lansoprazole 30 mg 08/08/20 10:00 08/09/20 09:57 Prevacid Solutab FEEDTUBE 30 mg QDAY NELSON Administration Levetiracetam 1,000 mg 08/08/20 22:00 08/11/20 06:54 Keppra PO Not Given BID [facility] Minoxidil 5 mg 07/21/20 10:00 08/11/20 06:55 Loniten PO Not Given BID [facility] Multi-Ingred Cream/Lotion/Oil/Oint 1 applic 05/28/20 13:49 Artificial Tears Ophth Oint OU Q4HR PRN Dry Eye(s) Ondansetron HCl 4 mg 06/02/20 09:00 06/09/20 16:48 Zofran IV 4 mg Q8H PRN Administration Nausea And Vomiting Senna 17.6 mg 06/03/20 10:00 08/11/20 06:56 Senokot FEEDTUBE Not Given BID NELSON Simple Syrup 15 ml 05/29/20 13:39 Simple Syrup FEEDTUBE PRN PRN Hypoglycemia Simple Syrup 30 ml 05/29/20 13:39 Simple Syrup FEEDTUBE PRN PRN Hypoglycemia Sodium Bicarbonate 325 mg 05/29/20 13:39 07/07/20 10:36 Sodium Bicarbonate FEEDTUBE 325 mg PRN PRN Administration For Clogged Feeding Tube Sodium Chloride 10 ml 05/28/20 22:00 08/09/20 22:18 Sodium Chloride Flush Syringe 10 Ml IV 10 ml BID NELSON Administration Sodium Chloride 10 ml 05/28/20 19:08 06/16/20 17:50 Sodium Chloride Flush Syringe 10 Ml IV 10 ml PRN PRN Administration LINE FLUSH Nutrition/Malnutrition Assess - Dietary Evaluation Nutrition/Malnutrition Findings: Nutrition Notes Start: 05/29/20 11:45 Freq: Status: Active Protocol: Document 08/06/20 14:09 KYLIE (Rec: 08/06/20 14:30 KYLIE [id number]) Co-Sign 08/06/20 14:09 MK Nutrition Notes Initial or Follow up Reassessment Current Diagnosis Acute Kidney Injury,Diabetes, Heart Failure,Respiratory Failure Other Pertinent Diagnosis COVID-19 (+), Pulmonary edema, dysphagia Current Diet Nepro at 40 ml/hr Labs/Tests Na 135 BUN 89 Cr 2.8 BG 116 POC 95 Pertinent Medications D5 1/2NS 50ml/hr Height 5 ft 6 in Weight 123 kg [place] Body Weight (kg) 59.09 BMI 43.7 Weight Status Morbidly Obese Subjective/Other Information F/u TF. LIS completed. Pt remains oliguric. HD yesterday removed 2 liters (08/05/20). Free water provided total 1597ml. Percent of energy/protein needs met: 100%/100% (Protein based on minimum 1.2g /kg IBW for dialysis) Burn Absent Trauma Absent GI Symptoms None Current % PO Negligible Minimum of two criteria No Fluid Accumulation Mild (non-severe) #1 Nutrition Diagnosis Inadequate oral intake Diagnosis Progress(for reassessment Continues documentation) Is patient on ventilator? Yes Is Patient Ambulatory and/or Out of Bed No REE-([facility]-confined to bed) 2172.576 Kcal/Kg value to use for calculation 13 Approximate Energy Requirements Using 1599 kcal/Kg Calculation Used for Recommendations Kcal/kg Additional Notes Protein needs up to 148g (up to 2.5g/kg IBW) with minimum of 71g (>1.2g/kg of IBW for dialysis) Fluid needs 1ml/kcal or per MD orders Nutrition Intervention Change Diet Order: Continue Nutrition Support: Nepro at 40 ml/hr Flush 150 q4h If hyponatremia, flush 50ml q4h Kcal 1,728 Protein (gm) 78 Fluid (mL) 697 Goal #1 Meet at least 75% of energy and protein needs by TF. Anticipated Discharge Needs: Unable to determine at this time Follow-Up By: 08/11/20 Additional Comments Follow up stable TF, fluid volume, and Na
--- NOTE | 2020-08-11 10:35 | Progress Note ---
Assessment and Plan - Patient Problems (1) Acute kidney injury (AVANI) with acute tubular necrosis (ATN) Current Visit: Yes Status: Acute Plan to address problem: Improved volume status with HD. Last HD performed on 08/07, stable renal parameters, without acute indication for renal replacement therapy at present. volume control with IV lasix 80mg bid. Patient is a poor candidate for custodial HD, given her overall poor prognosis, anoxic brain injury s/p cardiac arrest. (2) Pneumonia due to COVID-19 virus Current Visit: Yes Status: Acute Plan to address problem: Patient has completed course of Remdesevir. Completed course of steroids. (3) Acute hypoxemic respiratory failure Current Visit: Yes Status: Acute Plan to address problem: Being managed by pulmonary. S/p Extubation 06/12. Back on respirator. Continue management by pulmonary/critical care (4) Cardiac arrest Current Visit: Yes Status: Acute Plan to address problem: s/p ACLS with eventual ROSC (5) Cardiomyopathy Current Visit: No Status: Acute Qualifiers: Cardiomyopathy type: unspecified Qualified Code(s): I42.9 - Cardiomyopathy, unspecified Plan to address problem: Patient has peripheral edema. Has not responded to Bumex infusion. cont HD for volume control (6) Type 2 diabetes mellitus with diabetic chronic kidney disease Current Visit: Yes Status: Acute Plan to address problem: Blood sugar management by primary attending (7) Hyponatremia Current Visit: Yes Status: Acute Plan to address problem: likely hypervolemic nature, improved with HD. cont IV lasix 80mg bid Subjective Date of service: 08/11/20 Principal diagnosis: Ac hypoxemic resp failure; COVID-19; pneumonia; CHF; Pulm HTN; OHS; DM II Interval history: Pt remains on vent support. unresponsive. Objective - Exam Narrative Exam: I did not do physical exam at the bedside due to PPE conservation with the current COVID-19 pandemic. - Vital Signs Vital signs: Vital Signs - 12hr 08/10/20 08/10/20 08/10/20 22:46 23:00 23:16 Temperature Pulse Rate 73 74 69 Respiratory 16 12 17 Rate Blood Pressure 137/51 137/51 140/48 O2 Sat by Pulse 98 98 98 Oximetry 08/10/20 08/10/20 08/10/20 23:30 23:46 23:47 Temperature 98.9 F Pulse Rate 71 71 70 Respiratory 17 17 Rate Blood Pressure 140/48 125/47 125/47 O2 Sat by Pulse 98 98 98 Oximetry 08/11/20 08/11/20 08/11/20 00:00 00:16 00:30 Temperature Pulse Rate 72 72 70 Respiratory 15 17 16 Rate Blood Pressure 125/47 128/53 128/53 O2 Sat by Pulse 98 99 99 Oximetry 08/11/20 08/11/20 08/11/20 00:46 01:00 01:16 Temperature Pulse Rate 72 73 72 Respiratory 12 12 14 Rate Blood Pressure 128/53 128/53 126/49 O2 Sat by Pulse 98 98 98 Oximetry 08/11/20 08/11/20 08/11/20 01:30 01:46 02:00 Temperature Pulse Rate 71 72 72 Respiratory 16 14 18 Rate Blood Pressure 128/53 134/51 134/51 O2 Sat by Pulse 99 98 99 Oximetry 08/11/20 08/11/20 08/11/20 02:16 02:30 02:46 Temperature Pulse Rate 76 71 70 Respiratory 14 16 16 Rate Blood Pressure 125/53 125/53 125/50 O2 Sat by Pulse 85 98 98 Oximetry 08/11/20 08/11/20 08/11/20 03:00 03:16 03:30 Temperature Pulse Rate 71 71 70 Respiratory 17 17 17 Rate Blood Pressure 125/50 131/79 131/79 O2 Sat by Pulse 97 99 98 Oximetry 08/11/20 08/11/20 08/11/20 03:42 03:46 04:00 Temperature 98.6 F Pulse Rate 72 71 Respiratory 18 18 Rate Blood Pressure 121/54 121/54 O2 Sat by Pulse 98 98 Oximetry 08/11/20 08/11/20 08/11/20 04:16 04:30 04:46 Temperature Pulse Rate 70 70 70 Respiratory 16 19 19 Rate Blood Pressure 121/54 121/54 124/48 O2 Sat by Pulse 99 99 99 Oximetry 08/11/20 08/11/20 08/11/20 04:47 05:00 05:16 Temperature Pulse Rate 70 71 71 Respiratory 21 18 Rate Blood Pressure 124/48 124/48 129/48 O2 Sat by Pulse 98 99 99 Oximetry 08/11/20 08/11/20 08/11/20 05:30 05:46 06:00 Temperature Pulse Rate 73 72 73 Respiratory 17 13 19 Rate Blood Pressure 129/48 134/57 134/57 O2 Sat by Pulse 99 98 98 Oximetry 08/11/20 08/11/20 08/11/20 06:16 06:30 07:30 Temperature Pulse Rate 73 76 76 Respiratory 21 19 25 H Rate Blood Pressure 134/53 134/53 134/53 O2 Sat by Pulse 98 98 98 Oximetry - Lab 08/11/20 03:55 08/11/20 03:55 Most recent lab results ABG pH 7.344 pH Units (7.350-7.450) L 08/02/20 11:25 ABG pCO2 39.0 mm Hg 08/02/20 11:25 ABG pO2 101.1 mm Hg (80.0-90.0) H 08/02/20 11:25 ABG HCO3 20.8 mmol/L (20.0-26.0) 08/02/20 11:25 ABG O2 Saturation 97.5 % (95.0-99.0) 08/02/20 11:25 Calcium 7.5 mg/dL (8.4-10.2) L 08/11/20 03:55 Magnesium 2.70 mg/dL (1.7-2.3) H 07/28/20 04:30 Urine Creatinine 33.3 mg/dL (0.1-20.0) H 07/06/20 13:20 Urine Sodium 21 mmol/L 07/06/20 13:20 Urine Total Protein 196 mg/dL (5-11.8) H 06/06/20 04:00 Medications & Allergies - Medications Allergies/Adverse Reactions: Allergies No Known Allergies Allergy (Verified 01/21/20 12:28) Home Medications: Home Medications Medication Instructions Recorded Confirmed Last Taken Type AtorvaSTATin [Lipitor] 20 mg PO QHS 05/12/20 05/29/20 Unknown History lisinopriL [Zestril TAB] 40 mg PO QDAY 05/12/20 05/29/20 Unknown History metFORMIN [Glucophage] 850 mg PO BID 05/12/20 05/29/20 Unknown History Acetaminophen [Acetaminophen TAB] 650 mg PO Q4H PRN tablet 05/13/20 05/29/20 Unknown Rx Dicyclomine [Bentyl] 20 mg PO BID #20 tablet 05/13/20 05/29/20 Unknown Rx Famotidine [Pepcid] 20 mg PO BID #30 tablet 05/13/20 05/29/20 Unknown Rx carvediloL [Coreg] 6.25 mg PO BID #60 05/13/20 05/29/20 Unknown Rx Active Medications: Generic Name Dose Route Start Last Admin Trade Name Freq PRN Reason Stop Dose Admin Acetaminophen 650 mg 06/09/20 10:57 06/29/20 21:18 Tylenol FEEDTUBE 650 mg Q6H PRN Administration Fever >101 Amlodipine Besylate 10 mg 06/02/20 11:00 08/09/20 09:59 Amlodipine PO 10 mg DAILY NELSON Administration Lipase/Protease/Amylase 1 each 05/29/20 13:39 08/10/20 22:[address] 10,500 Unit FEEDTUBE 1 each PRN PRN Administration For Clogged Feeding Tube Epoetin Javon 10,000 unit 07/29/20 11:29 08/10/20 12:08 Procrit IV 10,000 unit SCOTTY PRN Administration hemodialysis Furosemide 80 mg 08/08/20 18:00 08/11/20 06:44 Lasix IV 80 mg 0600,1800 NELSON Administration Glycopyrrolate 2 mg 06/09/20 14:00 08/10/20 20:54 Glycopyrrolate PO Not Given TID [facility] Heparin Sodium (Porcine) 5,000 unit 06/30/20 14:00 08/11/20 06:40 Heparin SUB-Q 5,000 unit Q8HR NELSON Administration Heparin Sodium (Porcine) 5,000 unit 07/29/20 11:29 08/02/20 23:15 Heparin IV 5,000 unit SCOTTY PRN Administration hemodialysis Hydralazine HCl 100 mg 07/14/20 14:00 08/10/20 20:42 Apresoline PO Not Given TID [facility] Hydrophilic Ointment 1 applic 05/28/20 13:49 Vaseline Lip Therapy TP Q2HR PRN Dry Lips Norepinephrine 4 mg in 250 mls @ 7.5 mls/hr 07/23/20 20:00 08/05/20 05:21 Levophed Drip 4 Mg/Ns 250 Ml IV 0 mcg/min TITR NELSON 0 mls/hr Titration Protocol 2 MCG/MIN Phenytoin 150 mg/ Sodium 103 mls @ 408 mls/hr 08/03/20 09:00 08/11/20 06:42 Chloride IV 408 mls/hr Q8HR NELSON Administration Sodium Chloride 100 mls @ 999 mls/hr 08/04/20 22:27 Nacl 0.9% IV SCOTTY PRN Hypotension Insulin Glargine 10 units 06/08/20 22:00 08/10/20 22:46 Lantus SUB-Q 10 units QHS NELSON Administration Insulin Human Lispro 0 unit 05/29/20 18:00 08/11/20 06:43 Humalog SUB-Q Not Given Q6H [facility] Protocol Labetalol HCl 20 mg 06/03/20 09:00 07/31/20 12:14 Labetalol IV 20 mg Q4H PRN Administration HYPERTENSION Lansoprazole 30 mg 08/08/20 10:00 08/09/20 09:57 Prevacid Solutab FEEDTUBE 30 mg QDAY [facility] Administration Levetiracetam 1,000 mg 08/08/20 22:00 08/11/20 06:54 Keppra PO Not Given BID [facility] Minoxidil 5 mg 07/21/20 10:00 08/11/20 06:55 Loniten PO Not Given BID [facility] Multi-Ingred Cream/Lotion/Oil/Oint 1 applic 05/28/20 13:49 Artificial Tears Ophth Oint OU Q4HR PRN Dry Eye(s) Ondansetron HCl 4 mg 06/02/20 09:00 06/09/20 16:48 Zofran IV 4 mg Q8H PRN Administration Nausea And Vomiting Senna 17.6 mg 06/03/20 10:00 08/11/20 06:56 Senokot FEEDTUBE Not Given BID [facility] Simple Syrup 15 ml 05/29/20 13:39 Simple Syrup FEEDTUBE PRN PRN Hypoglycemia Simple Syrup 30 ml 05/29/20 13:39 Simple Syrup FEEDTUBE PRN PRN Hypoglycemia Sodium Bicarbonate 325 mg 05/29/20 13:39 07/07/20 10:36 Sodium Bicarbonate FEEDTUBE 325 mg PRN PRN Administration For Clogged Feeding Tube Sodium Chloride 10 ml 05/28/20 22:00 08/09/20 22:18 Sodium Chloride Flush Syringe 10 Ml IV 10 ml BID NELSON Administration Sodium Chloride 10 ml 05/28/20 19:08 06/16/20 17:50 Sodium Chloride Flush Syringe 10 Ml IV 10 ml PRN PRN Administration LINE FLUSH
[2020-08-11] MEDS: GLYCOPYRROLATE 2 MG TAB PO SCH ×2 (12:43→21:25)
[2020-08-11] MEDS: hydrALAZINE 100 MG TAB PO SCH ×2 (18:32→21:24)
[2020-08-11] MEDS: amLODIPine 10 MG TAB PO SCH (18:32)
[2020-08-11] MEDS: LANSOPRAZOLE 30 MG SOLUTAB FEEDTUBE SCH (18:53)
[2020-08-11] MEDS: INSULIN GLARGINE 100 UNITS/ML SUB-Q SCH (21:26)
[2020-08-12] MEDS: INSULIN LISPRO 100 UNIT/ML VIAL 3 mL SUB-Q SCH ×4 (00:16→17:23)
[2020-08-12] MEDS: FUROSEMIDE 40 MG/4 ML INJ IV SCH ×2 (05:54→07:48)
[2020-08-12] MEDS: HEPARIN 5,000 UNIT/1 ML VIAL SUB-Q SCH ×4 (05:54→21:45)
[2020-08-12] MEDS: PHENYTOIN IV SCH ×3 (05:55→21:45)
[2020-08-12] MEDS: SODIUM CHLORIDE 0.9% IV SCH ×3 (05:55→21:45)
[2020-08-12] MEDS: levETIRAcetam 500 MG/5 ML ORAL LIQD PO SCH ×3 (07:45→21:45)
[2020-08-12] MEDS: GLYCOPYRROLATE 2 MG TAB PO SCH ×4 (07:46→21:45)
[2020-08-12] MEDS: hydrALAZINE 100 MG TAB PO SCH ×4 (07:47→21:48)
[2020-08-12] MEDS: amLODIPine 10 MG TAB PO SCH ×2 (07:47→09:54)
[2020-08-12] MEDS: LANSOPRAZOLE 30 MG SOLUTAB FEEDTUBE SCH ×2 (07:47→09:54)
[2020-08-12] MEDS: SENNOSIDES ORAL LIQD 8.8 MG/5 ML ORAL LIQD FEEDTUBE SCH ×2 (09:55→21:49)
[2020-08-12] MEDS: MINOXIDIL 2.5 MG TAB PO SCH ×2 (09:55→21:47)
--- NOTE | 2020-08-12 10:05 | Progress Note ---
Assessment and Plan Assessment and plan: 05/28/2020 COVID-19 test positive 06/29/2020 COVID-19 test positive 07/14/2020 COVID-19 test positive 08/09/2020 COVID-19 test negative DNR status Awaiting DC home with hospice[pending family decision] --Acute hypoxemic respiratory failure; vent dependent intubated on admission, extubated on 06/12/20 then placed on high flow o2 patient developed another respiratory arrest on 06/26 - reintubated Patient not tolerating weaning parameters CC following, Surgery evaluated the patient for trach and PEG COVID-19 test positive x3, trach and PEG pending -- Hypertension; well controlled Continue amlodipine, clonidine and hydralazine and minoxidil, closely monitor blood pressures PRN labetalol --s/p cardiopulmonary arrest on admission, 06/26 and 07/01, EF 45-50% on 2d echo, medical Mx per cardiology --Bradycardia Patient is on dopamine and epinephrine for bradycardia beta-hugh discontinued, Heart rate is in the 60s to 70s --Anoxic brain injury, neurology consulted, neuro requested MRI brain, EEG MRI brain could not be done due to body habitus, --Seizures seizure precautions; continue Keppra, and Dilantin EEG showed epileptiform discharges per review of neurology note --Rectal bleeding; resolved --Acute blood loss anemia; total 4 units PRBC transfused monitor H&H, GI following, no plans of endoscopy --Severe sepsis; completed antibiotics per ID persistently positive for COVID-19 and treated for Klebsiella pneumoniae --COVID-19 b/l PNA Completed remdesivir on 06/02 Completed dexamethasone - Last dose 06/07 COVID 19 test positive x 3 during this admission --Superficial left cephalic vein DVT/elevated D-dimers[COVID 19] Patient initially started on heparin drip from 05/29/20 D-dimers improved [phone] treated with Eliquis 5 mg twice a day for 1 week[per ID] stop date 06/26/2020 -- Acute toxic metabolic encephalopathy, POA likely from sepsis and s/p cardiac arrest with possible anoxic injury -- Acute renal failure: Worsening BUN/creatinine 123/3.4 > 105/3.1 avoid nephrotoxins, Nephrology note reviewed Status post right femoral vascular catheter placement started on hemodialysis Discussed with Dr. Koehler --Klebsiella pneumonia: ID evaluated completed second round of 5 days of cefepime on 07/04/2020 --Acute on chronic systolic heart failure Cardiology following. Ef 45% --Transaminitis. Etiology likely from COVID-19. cont to monitor --Hyperkalemia; improved --Hyponatremia Monitor electrolytes, now on HD --Shock; resolved -- DVT prophylaxis Eliquis, SCD to bilateral lower extremities while in bed -- Advance care planning Patient is critically ill with multiple medical problems Poor prognosis. --DNR status; The high probability of a clinically significant, sudden or life threatening deterioration of the [HYDRAULIC LIFT OPERATOR, CVS, renal] system(s) required my full and direct attention, intervention and personal management. The aggregate critical care time was [34] minutes. This time is in addition to time spent performing reported procedures but includes the following: [x] Data Review and interpretation [x] Patient assessment and monitoring of vital signs [x] Documentation [x] Medication orders and management Brief History: 64 YO Female with a medical history of HTN, Diastolic CHF, Pulmonary HTN, DM, Obesity Hypoventilation Syndrome presents to ED for evaluation of shortness of breath. As per staff, the EMS was notified for difficulty breathing. Upon arrival to the patient's home the patient was found to be in distress and was subsequently transported to [facility] for further evaluation and care. In route to [facility] the patient developed cardiac arrest and was treated in accordance with ACLS protocol with return of ROSC. Patient was seen and evaluated in the emergency department and was intubated and placed on ventilatory support. Patient admitted to ICU. Critical care team consulted in ED. She was found to have COVID-19 infection and was started on steroids and remdesivir. ID was consulted. Cardiology was consulted for her systolic heart failure and cardiac arrest. Patient completed treatment for COVID-19, then develop superimposed bacterial pneumonia with Klebsiella. She is now extubated, 06/12/2020 but remains confused and requiring high flow O2 and intermittent BiPAP. Patient had another cardiac arrest reintubated 06/26/2020, currently in ICU vent dependent, unable to do trach and PEG due to persistent COVID-19 positive state, as well as anoxic brain injury, unable to get MRI , neurology following. History Interval history: I have seen and examined the patient at the bedside in ICU Isolation precautions, PPE protocols strictly followed Patient is Covid positive, remains intubated on ventilatory support Unable to wean, unable to do tracheostomy due to anoxic brain injury following cardiac arrest Vital signs noted DNR status Patient is awaiting discharge home with hospice Pending decision from family Hospitalist Physical - Constitutional Vitals: Temp Pulse Resp BP Pulse Ox 98.6 F 81 23 138/62 95 08/12/20 08:00 08/12/20 09:54 08/12/20 09:00 08/12/20 09:54 08/12/20 09:00 General appearance: Present: no acute distress, well-nourished, obese (Morbidly obese), other (Intubated on ventilatory support) - EENT Eyes: Absent: scleral icterus, exopthalmos - Neck Neck: Present: supple, normal ROM - Respiratory Respiratory effort: normal Respiratory: bilateral: diminished, rhonchi, negative: rales, wheezing - Cardiovascular Rhythm: regular Heart Sounds: Present: S1 & S2 - Extremities Extremities: no ischemia Extremity abnormal: edema - Abdominal General gastrointestinal: soft, non-tender, non-distended, normal bowel sounds - Integumentary Integumentary: Present: clear, warm (Edematous) - Psychiatric Psychiatric: other (Unresponsive intubated on vent) - Neurologic Neurologic: other (Unresponsive intubated on vent) HEART Score - HEART Score Troponin: Troponin T 0.067 ng/mL (0.00-0.029) H 07/01/20 06:01 Results - Labs CBC & Chem 7: 08/11/20 03:55 08/11/20 03:55 Labs: Laboratory Last Values WBC 7.2 K/mm3 (4.5-11.0) 08/11/20 03:55 RBC 2.22 M/mm3 (3.65-5.03) L 08/11/20 03:55 Hgb 6.9 gm/dl (10.1-14.3) L 08/11/20 03:55 Hct 20.1 % (30.3-42.9) L 08/11/20 03:55 MCV 90 fl (79-97) 08/11/20 03:55 MCH 31 pg (28-32) 08/11/20 03:55 MCHC 34 % (30-34) 08/11/20 03:55 RDW 18.3 % (13.2-15.2) H 08/11/20 03:55 Plt Count 300 K/mm3 (140-440) 08/11/20 03:55 Lymph % (Auto) 11.2 % (13.4-35.0) L 08/11/20 03:55 [place] % (Auto) 8.8 % (0.0-7.3) H 08/11/20 03:55 Eos % (Auto) 3.0 % (0.0-4.3) 08/11/20 03:55 Baso % (Auto) 0.7 % (0.0-1.8) 08/11/20 03:55 Lymph # (Auto) 0.8 K/mm3 (1.2-5.4) L 08/11/20 03:55 [place] # (Auto) 0.6 K/mm3 (0.0-0.8) 08/11/20 03:55 Eos # (Auto) 0.2 K/mm3 (0.0-0.4) 08/11/20 03:55 Baso # (Auto) 0.1 K/mm3 (0.0-0.1) 08/11/20 03:55 Add Manual Diff Complete 07/29/20 13:01 Total Counted 100 07/29/20 13:01 Seg Neutrophils % 76.3 % (40.0-70.0) H 08/11/20 03:55 Seg Neuts % (Manual) 86.0 % (40.0-70.0) H 07/29/20 13:01 Band Neutrophils % 0 % 07/29/20 13:01 Lymphocytes % (Manual) 6.0 % (13.4-35.0) L 07/29/20 13:01 Reactive Lymphs % (Man) 0 % 07/29/20 13:01 Monocytes % (Manual) 8.0 % (0.0-7.3) H 07/29/20 13:01 Eosinophils % (Manual) 0 % (0.0-4.3) 07/29/20 13:01 Basophils % (Manual) 0 % (0.0-1.8) 07/29/20 13:01 Metamyelocytes % 0 % 07/29/20 13:01 Myelocytes % 0 % 07/29/20 13:01 Promyelocytes % 0 % 07/29/20 13:01 Blast Cells % 0 % 07/29/20 13:01 Nucleated RBC % Not Reportable 07/29/20 13:01 Seg Neutrophils # 5.5 K/mm3 (1.8-7.7) 08/11/20 03:55 Seg Neutrophils # Man 8.9 K/mm3 (1.8-7.7) H 07/29/20 13:01 Band Neutrophils # 0.0 K/mm3 07/29/20 13:01 Lymphocytes # (Manual) 0.6 K/mm3 (1.2-5.4) L 07/29/20 13:01 Abs React Lymphs (Man) 0.0 K/mm3 07/29/20 13:01 Monocytes # (Manual) 0.8 K/mm3 (0.0-0.8) 07/29/20 13:01 Eosinophils # (Manual) 0.0 K/mm3 (0.0-0.4) 07/29/20 13:01 Basophils # (Manual) 0.0 K/mm3 (0.0-0.1) 07/29/20 13:01 Metamyelocytes # 0.0 K/mm3 07/29/20 13:01 Myelocytes # 0.0 K/mm3 07/29/20 13:01 Promyelocytes # 0.0 K/mm3 07/29/20 13:01 Blast Cells # 0.0 K/mm3 07/29/20 13:01 WBC Morphology Not Reportable 07/29/20 13:01 Hypersegmented Neuts Not Reportable 07/29/20 13:01 Hyposegmented Neuts Not Reportable 07/29/20 13:01 Hypogranular Neuts Not Reportable 07/29/20 13:01 Smudge Cells Not Reportable 07/29/20 13:01 Toxic Granulation Not Reportable 07/29/20 13:01 Toxic Vacuolation Not Reportable 07/29/20 13:01 Dohle Bodies Not Reportable 07/29/20 13:01 Pelger-Huet Anomaly Not Reportable 07/29/20 13:01 Sanjuanita Rods Not Reportable 07/29/20 13:01 Platelet Estimate Consistent w auto 07/29/20 13:01 Clumped Platelets Not Reportable 07/29/20 13:01 Plt Clumps, EDTA Not Reportable 07/29/20 13:01 Large Platelets Not Reportable 07/29/20 13:01 Giant Platelets Not Reportable 07/29/20 13:01 Platelet Satelliting Not Reportable 07/29/20 13:01 Plt Morphology Comment Not Reportable 07/29/20 13:01 RBC Morphology Normal 07/29/20 13:01 Dimorphic RBCs Not Reportable 07/29/20 13:01 Polychromasia Not Reportable 07/29/20 13:01 Hypochromasia Not Reportable 07/29/20 13:01 Poikilocytosis Not Reportable 07/29/20 13:01 Anisocytosis Not Reportable 07/29/20 13:01 Microcytosis Not Reportable 07/29/20 13:01 Macrocytosis Not Reportable 07/29/20 13:01 Spherocytes Not Reportable 07/29/20 13:01 Pappenheimer Bodies Not Reportable 07/29/20 13:01 Sickle Cells Not Reportable 07/29/20 13:01 Target Cells Not Reportable 07/29/20 13:01 Tear Drop Cells Not Reportable 07/29/20 13:01 Ovalocytes Not Reportable 07/29/20 13:01 Helmet Cells Not Reportable 07/29/20 13:01 [place] Bodies Not Reportable 07/29/20 13:01 [place] Rings Not Reportable 07/29/20 13:01 [place] Cells Not Reportable 07/29/20 13:01 Bite Cells Not Reportable 07/29/20 13:01 Crenated Cell Not Reportable 07/29/20 13:01 Elliptocytes Not Reportable 07/29/20 13:01 Acanthocytes (Spur) Not Reportable 07/29/20 13:01 Rouleaux Not Reportable 07/29/20 13:01 Hemoglobin C Crystals Not Reportable 07/29/20 13:01 Schistocytes Not Reportable 07/29/20 13:01 Malaria parasites Not Reportable 07/29/20 13:01 Kev Bodies Not Reportable 07/29/20 13:01 Hem Pathologist Commnt No 07/29/20 13:01 PT 14.2 Sec. (12.2-14.9) 05/29/20 15:10 INR 1.08 (0.87-1.13) 05/29/20 15:10 APTT 27.2 Sec. (24.2-36.6) 05/29/20 15:10 D-Dimer 2310.15 ng/mlDDU (0-234) H 06/29/20 14:45 Heparin Anti-Xa Level 0.34 U.I./ml (0.3-0.7) 06/19/20 10:46 ABG pH 7.344 pH Units (7.350-7.450) L 08/02/20 11:25 POC ABG pCO2 44.1 mmHg (32.0-48.0) 07/18/20 04:24 ABG pCO2 39.0 mm Hg 08/02/20 11:25 ABG Oxyhemoglobin 92.6 (94-98) L 06/23/20 12:34 POC ABG pO2 86.8 mmHg (83-108) 07/18/20 04:24 ABG pO2 101.1 mm Hg (80.0-90.0) H 08/02/20 11:25 POC ABG HCO3 25.6 07/18/20 04:24 ABG HCO3 20.8 mmol/L (20.0-26.0) 08/02/20 11:25 ABG O2 Saturation 97.5 % (95.0-99.0) 08/02/20 11:25 ABG O2 Content 9.1 (0.0-44) 08/02/20 11:25 POC ABG Base Excess 0.4 07/18/20 04:24 ABG Base Excess -4.5 mmol/L (-2.0-3.0) L 08/02/20 11:25 ABG Hemoglobin 6.6 gm/dl (12.0-16.0) L 08/02/20 11:25 ABG Carboxyhemoglobin 1.8 % (0.0-5.0) 08/02/20 11:25 ABG Methemoglobin 0.2 % (0.0-1.5) 08/02/20 11:25 VBG pH 7.152 (7.320-7.420) L* 05/28/20 13:47 ABG Sodium 131.6 mmol/L (136.0-145.0) L 07/18/20 04:24 ABG Potassium 4.9 mmol/L (3.40-4.50) H 07/18/20 04:24 ABG Chloride 104.0 mmol/L (98-107) 07/18/20 04:24 ABG Glucose 131 mg/dL (65-95) H 07/18/20 04:24 Carboxyhemoglobin 0.5 (0.5-1.5) 06/23/20 12:34 Oxyhemoglobin 95.5 % (95.0-99.0) 08/02/20 11:25 FiO2 30 % 08/02/20 11:25 Sodium 135 mmol/L (137-145) L 08/11/20 03:55 Potassium 3.7 mmol/L (3.6-5.0) 08/11/20 03:55 Chloride 94.5 mmol/L (98-107) L 08/11/20 03:55 Carbon Dioxide 27 mmol/L (22-30) 08/11/20 03:55 Anion Gap 17 mmol/L 08/11/20 03:55 BUN 48 mg/dL (7-17) H 08/11/20 03:55 Creatinine 2.2 mg/dL (0.6-1.2) H 08/11/20 03:55 Estimated GFR 23 ml/min 08/11/20 03:55 BUN/Creatinine Ratio 22 % 08/11/20 03:55 Glucose 53 mg/dL (65-100) L 08/11/20 03:55 POC Glucose 120 mg/dL (70-105) H 08/12/20 05:39 Lactic Acid 0.40 mmol/L (0.7-2.0) L 08/03/20 04:38 Calcium 7.5 mg/dL (8.4-10.2) L 08/11/20 03:55 Ferritin 223.6 ng/mL (10.0-200.0) H 06/29/20 14:45 Magnesium 2.70 mg/dL (1.7-2.3) H 07/28/20 04:30 Lactate Dehydrogenase 367 units/L (91-180) H 06/29/20 14:45 Total Bilirubin 0.20 mg/dL (0.1-1.2) 08/05/20 05:35 AST 53 units/L (5-40) H 08/05/20 05:35 ALT 44 units/L (7-56) 08/05/20 05:35 Alkaline Phosphatase 501 units/L (35-129) H 08/05/20 05:35 C-Reactive Protein 3.60 mg/dL (0.00-1.30) H 06/29/20 14:45 Total Creatine Kinase 300 units/L (30-135) H 07/01/20 06:01 CK-MB (CK-2) 2.0 ng/mL (0.0-4.0) 07/01/20 06:01 CK-MB (CK-2) Rel Index 0.6 (0-4) 07/01/20 06:01 Troponin T 0.067 ng/mL (0.00-0.029) H 07/01/20 06:01 Total Protein 6.1 g/dL (6.3-8.2) L 08/05/20 05:35 Albumin 2.2 g/dL (3.9-5) L 08/05/20 05:35 Albumin/Globulin Ratio 0.6 % 08/05/20 05:35 Triglycerides 142 mg/dL (2-149) 07/01/20 06:01 Cholesterol 137 mg/dL (50-199) 07/01/20 06:01 LDL Cholesterol Direct 62 mg/dL (50-130) 07/01/20 06:01 HDL Cholesterol 61 mg/dL (40-59) H 07/01/20 06:01 Cholesterol/HDL Ratio 2.24 % 07/01/20 06:01 Procalcitonin 0.18 ng/mL (<0.15) 07/14/20 04:55 Arterial Blood Glucose 131 mg/dL (65-95) H 07/18/20 04:24 Arterial Blood Ionized Calcium 5.1 mg/dL (4.6-5.3) 07/18/20 04:24 Urine Color Yellow (Yellow) 06/06/20 04:00 Urine Turbidity Cloudy (Clear) 06/06/20 04:00 Urine pH 5.0 (5.0-7.0) 06/06/20 04:00 Ur Specific [place] 1.012 (1.003-1.030) 06/06/20 04:00 Urine Protein 100 mg/dl mg/dL (Negative) 06/06/20 04:00 Urine Glucose (UA) 50 mg/dL (Negative) 06/06/20 04:00 Urine Ketones Neg mg/dL (Negative) 06/06/20 04:00 Urine Blood Sm (Negative) 06/06/20 04:00 Urine Nitrite Neg (Negative) 06/06/20 04:00 Urine Bilirubin Neg (Negative) 06/06/20 04:00 Urine Urobilinogen < 2.0 mg/dL (<2.0) 06/06/20 04:00 Ur Leukocyte Esterase Neg (Negative) 06/06/20 04:00 Urine WBC (Auto) 15.0 /HPF (0.0-6.0) H 06/06/20 04:00 Urine RBC (Auto) 23.0 /HPF (0.0-6.0) 06/06/20 04:00 U Epithel Cells (Auto) 8.0 /HPF (0-13.0) 06/06/20 04:00 Urine Bacteria (Auto) 2+ /HPF (Negative) 06/06/20 04:00 Amorphous Crystals 1+ 06/06/20 04:00 Hyaline Casts 16 /LPF 06/06/20 04:00 Urine Mucus 2+ /HPF 06/06/20 04:00 Urine Yeast (Budding) 2+ /HPF 06/03/20 Unknown Urine Creatinine 33.3 mg/dL (0.1-20.0) H 07/06/20 13:20 Urine Sodium 21 mmol/L 07/06/20 13:20 Urine Total Protein 196 mg/dL (5-11.8) H 06/06/20 04:00 Nasal Screen MRSA (PCR) Negative (Negative) 06/29/20 08:30 Phenytoin 4.7 ug/mL (10.0-20.0) L 08/08/20 15:00 Coronavirus (PCR) Negative (Negative) 08/09/20 09:50 Hepatitis A IgM Ab Non-reactive (NonReactive) 07/29/20 13:01 Hep Bs Antigen Non-reactive (Negative) 07/29/20 13:01 Hep B Core IgM Ab Non-reactive (NonReactive) 07/29/20 13:01 Hepatitis C Antibody Non-reactive (NonReactive) 07/29/20 13:01 Blood Type A POSITIVE 08/05/20 09:15 Antibody Screen Negative 08/05/20 09:15 Crossmatch See Detail 08/05/20 09:15 - Diagnostic Impressions Diagnostic Impressions: Echocardiogram Limited Views 05/29/20 13:52 Transthoracic Echocardiogram Indication: Pulm Embolus BP: 169/76 HR: 85 Conclusions *Limited study for RV size post cardiopulmonar arrest. *RV is only slightly dilated, no significant difference from prior echo 05/13/2020. *Global left ventricular systolic function is at the lower limits of normal. *The estimated ejection fraction is 45-50%. *Mild to moderate concentric left ventricular hypertrophy is observed. *The left and right atria are both mild to moderately dilated. Findings Left Ventricle: The left ventricular chamber size is mildly dilated. Mild to moderate concentric left ventricular hypertrophy is observed. Global left ventricular systolic function is at the lower limits of normal. The estimated ejection fraction is 45-50%. Left Atrium: The left atrium is mild to moderately dilated. Right Ventricle: The right ventricle is slightly dilated. Right Atrium: The right atrium is mild to moderately dilated. Aortic Valve: The aortic valve leaflets are moderately thickened. Mitral Valve: There is mitral annular calcification. The mitral valve leaflets are moderately thickened. Tricuspid Valve: The tricuspid valve leaflets are mildly thickened. Pericardium: A trivial pericardial effusion is visualized. NDUM: 05/29/20 1808 Amended Report Transthoracic Echocardiogram Indication: Pulm Embolus BP: 169/76 HR: 85 Conclusions *Limited study for RV size post cardiopulmonary arrest. *RV is only slightly dilated, no significant difference from prior echo 05/13/2020. *Global left ventricular systolic function is at the lower limits of normal. *The estimated ejection fraction is 45-50%. *Mild to moderate concentric left ventricular hypertrophy is observed. *The left and right atria are both mild to moderately dilated. Findings Left Ventricle: The left ventricular chamber size is mildly dilated. Mild to moderate concentric left ventricular hypertrophy is observed. Global left ventricular systolic function is at the lower limits of normal. The estimated ejection fraction is 45-50%. Left Atrium: The left atrium is mild to moderately dilated. Right Ventricle: The right ventricle is slightly dilated. Right Atrium: The right atrium is mild to moderately dilated. Aortic Valve: The aortic valve leaflets are moderately thickened. Mitral Valve: There is mitral annular calcification. The mitral valve leaflets are moderately thickened. Tricuspid Valve: The tricuspid valve leaflets are mildly thickened. Pericardium: A trivial pericardial effusion is visualized. Helm/IV: Voiding Method Indwelling Catheter IV Catheter Type [Right VAS Cath Femoral] IV Catheter Type [Left Forearm INT / Saline Lock ] IV Catheter Type [Left Wrist] Peripheral IV IV Catheter Type [Left Upper Peripheral IV arm] IV Catheter Type [Right CVL Internal Jugular] IV Catheter Type [Right Hand] Peripheral IV IV Catheter Type [Right Wrist] Not found on patient IV Catheter Type [Left Hand] INT / Saline Lock IV Catheter Type [Left INT / Saline Lock Antecubital] IV Catheter Type [Right Peripheral IV Forearm] IV Catheter Type [Left Leg] Intra-osseous Active Medications - Current Medications Current Medications: Generic Name Dose Route Start Last Admin Trade Name Freq PRN Reason Stop Dose Admin Acetaminophen 650 mg 06/09/20 10:57 06/29/20 21:18 Tylenol FEEDTUBE 650 mg Q6H PRN Administration Fever >101 Amlodipine Besylate 10 mg 06/02/20 11:00 08/12/20 09:54 Amlodipine PO 10 mg DAILY NELSON Administration Lipase/Protease/Amylase 1 each 05/29/20 13:39 08/10/20 22:[address] 10,500 Unit FEEDTUBE 1 each PRN PRN Administration For Clogged Feeding Tube Epoetin Javon 10,000 unit 07/29/20 11:29 08/10/20 12:08 Procrit IV 10,000 unit SCOTTY PRN Administration hemodialysis Furosemide 80 mg 08/08/20 18:00 08/12/20 07:48 Lasix IV Not Given 0600,1800 NELSON Glycopyrrolate 2 mg 06/09/20 14:00 08/12/20 08:17 Glycopyrrolate PO 2 mg TID NELSON Administration Heparin Sodium (Porcine) 5,000 unit 06/30/20 14:00 08/12/20 07:47 Heparin SUB-Q Not Given Q8HR NELSON Heparin Sodium (Porcine) 5,000 unit 07/29/20 11:29 08/02/20 23:15 Heparin IV 5,000 unit SCOTTY PRN Administration hemodialysis Hydralazine HCl 100 mg 07/14/20 14:00 08/12/20 08:17 Apresoline PO Not Given TID NELSON Hydrophilic Ointment 1 applic 05/28/20 13:49 Vaseline Lip Therapy TP Q2HR PRN Dry Lips Norepinephrine 4 mg in 250 mls @ 7.5 mls/hr 07/23/20 20:00 08/05/20 05:21 Levophed Drip 4 Mg/Ns 250 Ml IV 0 mcg/min TITR NELSON 0 mls/hr Titration Protocol 2 MCG/MIN Phenytoin 150 mg/ Sodium 103 mls @ 408 mls/hr 08/03/20 09:00 08/12/20 05:55 Chloride IV 408 mls/hr Q8HR NELSON Administration Sodium Chloride 100 mls @ 999 mls/hr 08/04/20 22:27 Nacl 0.9% IV SCOTTY PRN Hypotension Insulin Glargine 10 units 06/08/20 22:00 08/11/20 21:26 Lantus SUB-Q Not Given QHS [facility] Insulin Human Lispro 0 unit 05/29/20 18:00 08/12/20 05:45 Humalog SUB-Q Not Given Q6H [facility] Protocol Labetalol HCl 20 mg 06/03/20 09:00 07/31/20 12:14 Labetalol IV 20 mg Q4H PRN Administration HYPERTENSION Lansoprazole 30 mg 08/08/20 10:00 08/12/20 09:54 Prevacid Solutab FEEDTUBE 30 mg QDAY [facility] Administration Levetiracetam 1,000 mg 08/08/20 22:00 08/12/20 09:53 Keppra PO 1,000 mg BID [facility] Administration Minoxidil 5 mg 07/21/20 10:00 08/12/20 09:55 Loniten PO Not Given BID [facility] Multi-Ingred Cream/Lotion/Oil/Oint 1 applic 05/28/20 13:49 Artificial Tears Ophth Oint OU Q4HR PRN Dry Eye(s) Ondansetron HCl 4 mg 06/02/20 09:00 06/09/20 16:48 Zofran IV 4 mg Q8H PRN Administration Nausea And Vomiting Senna 17.6 mg 06/03/20 10:00 08/12/20 09:55 Senokot FEEDTUBE Not Given BID NELSON Simple Syrup 15 ml 05/29/20 13:39 Simple Syrup FEEDTUBE PRN PRN Hypoglycemia Simple Syrup 30 ml 05/29/20 13:39 Simple Syrup FEEDTUBE PRN PRN Hypoglycemia Sodium Bicarbonate 325 mg 05/29/20 13:39 09/29/20 10:36 Sodium Bicarbonate FEEDTUBE 325 mg PRN PRN Administration For Clogged Feeding Tube Sodium Chloride 10 ml 05/28/20 22:00 08/12/20 09:56 Sodium Chloride Flush Syringe 10 Ml IV 10 ml BID NELSON Administration Sodium Chloride 10 ml 05/28/20 19:08 08/11/20 12:42 Sodium Chloride Flush Syringe 10 Ml IV 10 ml PRN PRN Administration LINE FLUSH Nutrition/Malnutrition Assess - Dietary Evaluation Nutrition/Malnutrition Findings: Nutrition Notes Start: 05/29/20 11:45 Freq: Status: Active Protocol: Document 08/11/20 12:18 KYLIE (Rec: 08/11/20 12:23 KYLIE [id number]) Co-Sign 08/11/20 12:18 ALFRED Nutrition Notes Initial or Follow up Reassessment Current Diagnosis Acute Kidney Injury,Diabetes, Heart Failure,Respiratory Failure Other Pertinent Diagnosis COVID-19 (+), Pulmonary edema, dysphagia Current Diet Nepro at 40 ml/hr Labs/Tests Na 135 BUN 48 Cr 2.2 BG 53 POC 72 Pertinent Medications Dextrose 75g Lasix Height 5 ft 6 in Weight 123 kg [place] Body Weight (kg) 59.09 BMI 43.7 Weight Status Morbidly Obese Subjective/Other Information F/u TF, fluid, Na. Pt remains fluid overloaded. Hospice care possibility. Percent of energy/protein needs met: 100%/100% (Protein based on minimum 1.2g /kg IBW for dialysis) Burn Absent Trauma Absent GI Symptoms None Current % PO Negligible Minimum of two criteria No Fluid Accumulation Mild (non-severe) #1 Nutrition Diagnosis Inadequate oral intake Diagnosis Progress(for reassessment Continues documentation) Is patient on ventilator? Yes Is Patient Ambulatory and/or Out of Bed No REE-([facility]-confined to bed) 2172.576 Kcal/Kg value to use for calculation 13 Approximate Energy Requirements Using 1599 kcal/Kg Calculation Used for Recommendations Kcal/kg Additional Notes Protein needs up to 148g (up to 2.5g/kg IBW) with minimum of 71g (>1.2g/kg of IBW for dialysis) Fluid needs 1ml/kcal or per MD orders Nutrition Intervention Change Diet Order: Continue Nutrition Support: Nepro at 40 ml/hr Flush 50ml q4h Kcal 1,728 Protein (gm) 78 Fluid (mL) 697 Goal #1 Meet at least 75% of energy and protein needs by TF. Anticipated Discharge Needs: Unable to determine at this time Follow-Up By: 08/18/20 Additional Comments F/u TF and POC
--- NOTE | 2020-08-12 13:10 | Progress Note ---
Assessment and Plan - Patient Problems (1) Acute kidney injury (AVANI) with acute tubular necrosis (ATN) Current Visit: Yes Status: Acute Plan to address problem: Improved volume status with HD. Last HD performed on 08/07, stable renal parameters, without acute indication for renal replacement therapy at present. will cont volume control with torsemide 100mg po qd starting AM. Patient is a poor candidate for half-way HD, given her overall poor prognosis, anoxic brain injury s/p cardiac arrest. (2) Pneumonia due to COVID-19 virus Current Visit: Yes Status: Acute Plan to address problem: Patient has completed course of Remdesevir. Completed course of steroids. (3) Acute hypoxemic respiratory failure Current Visit: Yes Status: Acute Plan to address problem: Being managed by pulmonary. S/p Extubation 06/12. Back on respirator. Continue management by pulmonary/critical care (4) Cardiac arrest Current Visit: Yes Status: Acute Plan to address problem: s/p ACLS with eventual ROSC (5) Cardiomyopathy Current Visit: No Status: Acute Qualifiers: Cardiomyopathy type: unspecified Qualified Code(s): I42.9 - Cardiomyopathy, unspecified Plan to address problem: Patient has peripheral edema. Has not responded to Bumex infusion. cont HD for volume control (6) Type 2 diabetes mellitus with diabetic chronic kidney disease Current Visit: Yes Status: Acute Plan to address problem: Blood sugar management by primary attending (7) Hyponatremia Current Visit: Yes Status: Acute Plan to address problem: likely hypervolemic nature, improved with HD. cont diuresis with toresemide Subjective Date of service: 08/12/20 Principal diagnosis: Ac hypoxemic resp failure; COVID-19; pneumonia; CHF; Pulm HTN; OHS; DM II Interval history: Pt remains on vent support. unresponsive. Objective - Exam Narrative Exam: I did not do physical exam at the bedside due to PPE conservation with the current COVID-19 pandemic. - Vital Signs Vital signs: Vital Signs - 12hr 08/12/20 08/12/20 08/12/20 01:16 01:30 01:46 Temperature Pulse Rate 74 74 72 Pulse Rate [ From Monitor] Respiratory 16 15 16 Rate Blood Pressure 125/56 125/56 138/57 O2 Sat by Pulse 98 97 98 Oximetry 08/12/20 08/12/20 08/12/20 02:00 02:16 02:30 Temperature Pulse Rate 74 74 73 Pulse Rate [ From Monitor] Respiratory 18 21 15 Rate Blood Pressure 138/57 138/57 138/57 O2 Sat by Pulse 100 100 100 Oximetry 08/12/20 08/12/20 08/12/20 02:46 03:00 03:16 Temperature Pulse Rate 75 74 75 Pulse Rate [ From Monitor] Respiratory 15 17 17 Rate Blood Pressure 142/59 142/59 150/57 O2 Sat by Pulse 100 100 99 Oximetry 08/12/20 08/12/20 08/12/20 03:30 03:45 03:46 Temperature Pulse Rate 75 74 75 Pulse Rate [ 74 From Monitor] Respiratory 16 17 Rate Blood Pressure 150/57 148/56 O2 Sat by Pulse 99 99 Oximetry 08/12/20 08/12/20 08/12/20 04:00 04:02 04:16 Temperature 97.8 F 97.8 F Pulse Rate 74 74 Pulse Rate [ From Monitor] Respiratory 17 18 Rate Blood Pressure 148/56 144/49 O2 Sat by Pulse 99 99 Oximetry 08/12/20 08/12/20 08/12/20 04:30 04:46 05:00 Temperature Pulse Rate 75 73 74 Pulse Rate [ From Monitor] Respiratory 17 16 11 L Rate Blood Pressure 144/49 133/54 133/54 O2 Sat by Pulse 99 99 99 Oximetry 08/12/20 08/12/20 08/12/20 05:16 05:30 05:46 Temperature Pulse Rate 73 76 74 Pulse Rate [ From Monitor] Respiratory 15 12 13 Rate Blood Pressure 130/50 130/50 130/50 O2 Sat by Pulse 99 96 99 Oximetry 08/12/20 08/12/20 08/12/20 06:00 06:16 06:30 Temperature Pulse Rate 75 75 74 Pulse Rate [ From Monitor] Respiratory 18 11 L 14 Rate Blood Pressure 130/50 140/57 140/57 O2 Sat by Pulse 99 98 98 Oximetry 08/12/20 08/12/20 08/12/20 06:46 07:00 07:16 Temperature Pulse Rate 72 72 71 Pulse Rate [ From Monitor] Respiratory 16 13 15 Rate Blood Pressure 139/52 139/52 135/52 O2 Sat by Pulse 99 99 99 Oximetry 08/12/20 08/12/20 08/12/20 07:30 07:46 07:50 Temperature Pulse Rate 77 74 71 Pulse Rate [ From Monitor] Respiratory 13 13 15 Rate Blood Pressure 135/52 144/57 135/52 O2 Sat by Pulse 97 93 99 Oximetry 08/12/20 08/12/20 08/12/20 08:00 08:16 08:30 Temperature 98.6 F Pulse Rate 72 74 74 Pulse Rate [ 71 From Monitor] Respiratory 20 18 22 Rate Blood Pressure 144/57 121/45 121/45 O2 Sat by Pulse 98 98 97 Oximetry 08/12/20 08/12/20 08/12/20 08:46 09:00 09:16 Temperature Pulse Rate 71 74 76 Pulse Rate [ From Monitor] Respiratory 17 23 26 H Rate Blood Pressure 121/45 121/45 119/52 O2 Sat by Pulse 95 95 91 Oximetry 08/12/20 08/12/20 08/12/20 09:30 09:46 09:54 Temperature Pulse Rate 74 83 81 Pulse Rate [ From Monitor] Respiratory 25 H 18 Rate Blood Pressure 119/52 138/62 138/62 O2 Sat by Pulse 84 97 Oximetry 08/12/20 08/12/20 08/12/20 10:00 10:16 10:30 Temperature Pulse Rate 81 79 78 Pulse Rate [ From Monitor] Respiratory 17 14 16 Rate Blood Pressure 138/62 154/66 154/66 O2 Sat by Pulse 96 97 97 Oximetry 08/12/20 08/12/20 08/12/20 10:46 11:00 11:15 Temperature Pulse Rate 78 77 76 Pulse Rate [ From Monitor] Respiratory 16 15 17 Rate Blood Pressure 154/66 154/66 137/54 O2 Sat by Pulse 97 97 98 Oximetry 08/12/20 08/12/20 08/12/20 11:30 11:46 12:00 Temperature 98.8 F Pulse Rate 76 74 72 Pulse Rate [ 72 From Monitor] Respiratory 15 17 16 Rate Blood Pressure 137/54 139/60 139/60 O2 Sat by Pulse 97 98 97 Oximetry 08/12/20 12:16 Temperature Pulse Rate 72 Pulse Rate [ From Monitor] Respiratory 15 Rate Blood Pressure 126/46 O2 Sat by Pulse 98 Oximetry - Lab 08/11/20 03:55 08/11/20 03:55 Most recent lab results ABG pH 7.344 pH Units (7.350-7.450) L 08/02/20 11:25 ABG pCO2 39.0 mm Hg 08/02/20 11:25 ABG pO2 101.1 mm Hg (80.0-90.0) H 08/02/20 11:25 ABG HCO3 20.8 mmol/L (20.0-26.0) 08/02/20 11:25 ABG O2 Saturation 97.5 % (95.0-99.0) 08/02/20 11:25 Calcium 7.5 mg/dL (8.4-10.2) L 08/11/20 03:55 Magnesium 2.70 mg/dL (1.7-2.3) H 07/28/20 04:30 Urine Creatinine 33.3 mg/dL (0.1-20.0) H 07/06/20 13:20 Urine Sodium 21 mmol/L 07/06/20 13:20 Urine Total Protein 196 mg/dL (5-11.8) H 06/06/20 04:00 Medications & Allergies - Medications Allergies/Adverse Reactions: Allergies No Known Allergies Allergy (Verified 01/21/20 12:28) Home Medications: Home Medications Medication Instructions Recorded Confirmed Last Taken Type AtorvaSTATin [Lipitor] 20 mg PO QHS 05/12/20 05/29/20 Unknown History lisinopriL [Zestril TAB] 40 mg PO QDAY 05/12/20 05/29/20 Unknown History metFORMIN [Glucophage] 850 mg PO BID 05/12/20 05/29/20 Unknown History Acetaminophen [Acetaminophen TAB] 650 mg PO Q4H PRN tablet 05/13/20 05/29/20 Unknown Rx Dicyclomine [Bentyl] 20 mg PO BID #20 tablet 05/13/20 05/29/20 Unknown Rx Famotidine [Pepcid] 20 mg PO BID #30 tablet 05/13/20 05/29/20 Unknown Rx carvediloL [Coreg] 6.25 mg PO BID #60 05/13/20 05/29/20 Unknown Rx Active Medications: Generic Name Dose Route Start Last Admin Trade Name Freq PRN Reason Stop Dose Admin Acetaminophen 650 mg 06/09/20 10:57 06/29/20 21:18 Tylenol FEEDTUBE 650 mg Q6H PRN Administration Fever >101 Amlodipine Besylate 10 mg 06/02/20 11:00 08/12/20 09:54 Amlodipine PO 10 mg DAILY NELSON Administration Lipase/Protease/Amylase 1 each 05/29/20 13:39 11/02/20 22:45 Pancreaze 10,500 Unit FEEDTUBE 1 each PRN PRN Administration For Clogged Feeding Tube Epoetin Javon 10,000 unit 07/29/20 11:29 08/10/20 12:08 Procrit IV 10,000 unit SCOTTY PRN Administration hemodialysis Glycopyrrolate 2 mg 06/09/20 14:00 08/12/20 08:17 Glycopyrrolate PO 2 mg TID NELSON Administration Heparin Sodium (Porcine) 5,000 unit 06/30/20 14:00 08/12/20 07:47 Heparin SUB-Q Not Given Q8HR [facility] Heparin Sodium (Porcine) 5,000 unit 07/29/20 11:29 08/02/20 23:15 Heparin IV 5,000 unit SCOTTY PRN Administration hemodialysis Hydralazine HCl 100 mg 07/14/20 14:00 08/12/20 08:17 Apresoline PO Not Given TID [facility] Hydrophilic Ointment 1 applic 05/28/20 13:49 Vaseline Lip Therapy TP Q2HR PRN Dry Lips Norepinephrine 4 mg in 250 mls @ 7.5 mls/hr 07/23/20 20:00 08/05/20 05:21 Levophed Drip 4 Mg/Ns 250 Ml IV 0 mcg/min TITR NELSON 0 mls/hr Titration Protocol 2 MCG/MIN Phenytoin 150 mg/ Sodium 103 mls @ 408 mls/hr 08/03/20 09:00 08/12/20 05:55 Chloride IV 408 mls/hr Q8HR NELSON Administration Sodium Chloride 100 mls @ 999 mls/hr 08/04/20 22:27 Nacl 0.9% IV SCOTTY PRN Hypotension Insulin Glargine 10 units 06/08/20 22:00 08/11/20 21:26 Lantus SUB-Q Not Given QHS [facility] Insulin Human Lispro 0 unit 05/29/20 18:00 08/12/20 12:16 Humalog SUB-Q Not Given Q6H [facility] Protocol Labetalol HCl 20 mg 06/03/20 09:00 07/31/20 12:14 Labetalol IV 20 mg Q4H PRN Administration HYPERTENSION Lansoprazole 30 mg 08/08/20 10:00 08/12/20 09:54 Prevacid Solutab FEEDTUBE 30 mg QDAY NELSON Administration Levetiracetam 1,000 mg 08/08/20 22:00 08/12/20 09:53 Keppra PO 1,000 mg BID NELSON Administration Minoxidil 5 mg 07/21/20 10:00 08/12/20 09:55 Loniten PO Not Given BID NELSON Multi-Ingred Cream/Lotion/Oil/Oint 1 applic 05/28/20 13:49 Artificial Tears Ophth Oint OU Q4HR PRN Dry Eye(s) Ondansetron HCl 4 mg 06/02/20 09:00 06/09/20 16:48 Zofran IV 4 mg Q8H PRN Administration Nausea And Vomiting Senna 17.6 mg 06/03/20 10:00 08/12/20 09:55 Senokot FEEDTUBE Not Given BID NELSON Simple Syrup 15 ml 05/29/20 13:39 Simple Syrup FEEDTUBE PRN PRN Hypoglycemia Simple Syrup 30 ml 05/29/20 13:39 Simple Syrup FEEDTUBE PRN PRN Hypoglycemia Sodium Bicarbonate 325 mg 05/29/20 13:39 07/07/20 10:36 Sodium Bicarbonate FEEDTUBE 325 mg PRN PRN Administration For Clogged Feeding Tube Sodium Chloride 10 ml 05/28/20 22:00 08/12/20 09:56 Sodium Chloride Flush Syringe 10 Ml IV 10 ml BID NELSON Administration Sodium Chloride 10 ml 05/28/20 19:08 08/11/20 12:42 Sodium Chloride Flush Syringe 10 Ml IV 10 ml PRN PRN Administration LINE FLUSH
--- NOTE | 2020-08-12 13:43 | Progress Note ---
Assessment and Plan Acute hypoxemic respiratory failure on MVS Coronavirus-19 infection. Bilateral pulmonary infiltrates, bilateral pneumonia plus likely element of Pulmonary edema. Bilateral pulmonary edema. Bilateral pleural effusions. History of congestive heart failure. Morbid obesity. History of pulmonary hypertension. History of hypertension. Diabetes. Obesity hypoventilation syndrome. Elevated serum inflammatory markers to include D-dimers and LDH levels. Hyperkalemia at presentation. Metabolic acidosis. Oropharyngeal dysphagia. (AMS remains rate limiting factor to safe extubation; she will need a tracheo stomy if continued care desired) - continue daily SBT's and attempts to wean - repeat COVID-19 test was negative - discharge planning ongoing concurrently - continue to rest on AC qhs - prn vasopressors for target MAP > 65 mmHg - continue care as below otherwise; - prn CXR's and ABG's at this point - repeat EEG next per neurology rec's (repeat CT brain negative) - AED's per neurology ([facility]) - surgery evaluation ongoing for trach +/- PEG (await negative COVID PCR result) - continue Modafinil re: lethargy / somnolence - continue daytime PSV trials as tolerated - Daily SAT and SBT assessment as tolerated - continue to wean supplemental oxygen for target O2 sat's > 92% acutely - VAP bundle addressed - continue lung protective strategies - continue bronchodilators with pulmonary hygiene per RT - wean per pulmonary driven protocols otherwise - continue accuchecks resumed with glycemic control per SSI (While critically ill target blood glucose of 140-180 mg/dL; avoid hypoglycemia) - sedation prn for target RASS 0 to -1 - continue to avoid benzodiazepine's, reduce the possibility of delirium - AB's per ID rec's (following clinically of AB's at this time) - continue enteral nutrition at goal rate as tolerated - AED's per neurology - prn analgesia per CPOT score - Maintenance of sleep-wake cycle, avoid delirium - continue enteral nutritional support at goal rate as tolerated - G.I. & VTE prophylaxis with heparin & famotidine - PT/OT/ROM exercises - continue mobility protocols for pressure ulcer prophylaxis - Monitor hemodynamics closely - continue other care per attending / other consultants - discharge planning ongoing concurrently (LTAC evaluation is appropriate) .... Re-evaluate in am & prn; will continue aggressive care until clear family wants to decelerate CONDITION: CRITICAL PROGNOSIS: GUARDED CODE STATUS: FULL CODE The high probability of a clinically significant, sudden or life-threatening deterioration of the [respiratory, cardiovascular, GI & neurologic] system(s) required my full and direct attention, intervention and personal management. The aggregate critical care time was [32] minutes without overlap. Time includes spent on; [x] Data Review and interpretation [x] Patient assessment and monitoring of vital signs [x] Documentation [x] Medication orders and management Subjective Date of service: 08/12/20 Principal diagnosis: Ac hypoxemic resp failure; COVID-19; pneumonia; CHF; Pulm HTN; OHS; DM II Interval history: Patient is seen today for: Ac hypoxemic resp failure; Coronavirus-19 infection; pneumonia; Pulmonary edema; Bilateral pleural effusions; CHF; Morbid obesity; pulmonary hypertension; OHS; DM II Seen and examined at bedside; 24hour events reviewed; nursing and respiratory care staff consulted; no adverse overnight events reported to me; resting p eacefully in bed; remains on MVS; AMS is persistent; remains oliguric; tenuously tolerating SBT's; no emesis or overt aspiration Objective Vital Signs - 12hr 08/12/20 08/12/20 08/12/20 01:46 02:00 02:16 Temperature Pulse Rate 72 74 74 Pulse Rate [ From Monitor] Respiratory 16 18 21 Rate Blood Pressure 138/57 138/57 138/57 O2 Sat by Pulse 98 100 100 Oximetry 08/12/20 08/12/20 08/12/20 02:30 02:46 03:00 Temperature Pulse Rate 73 75 74 Pulse Rate [ From Monitor] Respiratory 15 15 17 Rate Blood Pressure 138/57 142/59 142/59 O2 Sat by Pulse 100 100 100 Oximetry 08/12/20 08/12/20 08/12/20 03:16 03:30 03:45 Temperature Pulse Rate 75 75 74 Pulse Rate [ From Monitor] Respiratory 17 16 Rate Blood Pressure 150/57 150/57 O2 Sat by Pulse 99 99 Oximetry 08/12/20 08/12/20 08/12/20 03:46 04:00 04:02 Temperature 97.8 F 97.8 F Pulse Rate 75 74 Pulse Rate [ 74 From Monitor] Respiratory 17 17 Rate Blood Pressure 148/56 148/56 O2 Sat by Pulse 99 99 Oximetry 08/12/20 08/12/20 08/12/20 04:16 04:30 04:46 Temperature Pulse Rate 74 75 73 Pulse Rate [ From Monitor] Respiratory 18 17 16 Rate Blood Pressure 144/49 144/49 133/54 O2 Sat by Pulse 99 99 99 Oximetry 08/12/20 08/12/20 08/12/20 05:00 05:16 05:30 Temperature Pulse Rate 74 73 76 Pulse Rate [ From Monitor] Respiratory 11 L 15 12 Rate Blood Pressure 133/54 130/50 130/50 O2 Sat by Pulse 99 99 96 Oximetry 08/12/20 08/12/20 08/12/20 05:46 06:00 06:16 Temperature Pulse Rate 74 75 75 Pulse Rate [ From Monitor] Respiratory 13 18 11 L Rate Blood Pressure 130/50 130/50 140/57 O2 Sat by Pulse 99 99 98 Oximetry 08/12/20 08/12/20 08/12/20 06:30 06:46 07:00 Temperature Pulse Rate 74 72 72 Pulse Rate [ From Monitor] Respiratory 14 16 13 Rate Blood Pressure 140/57 139/52 139/52 O2 Sat by Pulse 98 99 99 Oximetry 08/12/20 08/12/20 08/12/20 07:16 07:30 07:46 Temperature Pulse Rate 71 77 74 Pulse Rate [ From Monitor] Respiratory 15 13 13 Rate Blood Pressure 135/52 135/52 144/57 O2 Sat by Pulse 99 97 93 Oximetry 08/12/20 08/12/20 08/12/20 07:50 08:00 08:16 Temperature 98.6 F Pulse Rate 71 72 74 Pulse Rate [ 71 From Monitor] Respiratory 15 20 18 Rate Blood Pressure 135/52 144/57 121/45 O2 Sat by Pulse 99 98 98 Oximetry 08/12/20 08/12/20 08/12/20 08:30 08:46 09:00 Temperature Pulse Rate 74 71 74 Pulse Rate [ From Monitor] Respiratory 22 17 23 Rate Blood Pressure 121/45 121/45 121/45 O2 Sat by Pulse 97 95 95 Oximetry 08/12/20 08/12/20 08/12/20 09:16 09:30 09:46 Temperature Pulse Rate 76 74 83 Pulse Rate [ From Monitor] Respiratory 26 H 25 H 18 Rate Blood Pressure 119/52 119/52 138/62 O2 Sat by Pulse 91 84 97 Oximetry 08/12/20 08/12/20 08/12/20 09:54 10:00 10:16 Temperature Pulse Rate 81 81 79 Pulse Rate [ From Monitor] Respiratory 17 14 Rate Blood Pressure 138/62 138/62 154/66 O2 Sat by Pulse 96 97 Oximetry 08/12/20 08/12/20 08/12/20 10:30 10:46 11:00 Temperature Pulse Rate 78 78 77 Pulse Rate [ From Monitor] Respiratory 16 16 15 Rate Blood Pressure 154/66 154/66 154/66 O2 Sat by Pulse 97 97 97 Oximetry 08/12/20 08/12/20 08/12/20 11:15 11:30 11:46 Temperature Pulse Rate 76 76 74 Pulse Rate [ From Monitor] Respiratory 17 15 17 Rate Blood Pressure 137/54 137/54 139/60 O2 Sat by Pulse 98 97 98 Oximetry 08/12/20 08/12/20 08/12/20 12:00 12:16 12:30 Temperature 98.8 F Pulse Rate 72 72 72 Pulse Rate [ 72 From Monitor] Respiratory 16 15 15 Rate Blood Pressure 139/60 126/46 126/46 O2 Sat by Pulse 97 98 98 Oximetry 08/12/20 08/12/20 12:46 13:09 Temperature Pulse Rate 72 73 Pulse Rate [ From Monitor] Respiratory 16 17 Rate Blood Pressure 121/41 O2 Sat by Pulse 98 98 Oximetry Constitutional: appears uncomfortable, other (elderly looking female with mildly increased resp effort at rest) Eyes: non-icteric ENT: oropharynx moist, oropharyngeal exudate pre, other (ETT 23-24 cm AYAN) Neck: supple, no lymphadenopathy, no JVD Effort: mildly labored Ascultation: Bilateral: diminished breath sounds, rhonchi Percussion: Bilateral: not dull Cardiovascular: regular rate and rhythm, other (S1,S2) Gastrointestinal: normoactive bowel sounds, soft, non-tender, non-distended Integumentary: rash, other (anasarca) Extremities: no cyanosis, pink and warm, pulses normal, no ischemia or petechiae, edema (pedal and peripheral ) Neurologic: unable to assess, other (lethargic to obtunded) Psychiatric: other (unable to assess re: AMS) CBC and BMP: 08/11/20 03:55 08/11/20 03:55 ABG, PT/INR, D-dimer: ABG ABG pH 7.344 pH Units (7.350-7.450) L 08/02/20 11:25 POC ABG pCO2 44.1 mmHg (32.0-48.0) 07/18/20 04:24 ABG pCO2 39.0 mm Hg 08/02/20 11:25 POC ABG pO2 86.8 mmHg (83-108) 07/18/20 04:24 ABG pO2 101.1 mm Hg (80.0-90.0) H 08/02/20 11:25 POC ABG HCO3 25.6 07/18/20 04:24 ABG O2 Saturation 97.5 % (95.0-99.0) 08/02/20 11:25 PT/INR, D-dimer PT 14.2 Sec. (12.2-14.9) 05/29/20 15:10 INR 1.08 (0.87-1.13) 05/29/20 15:10 D-Dimer 2310.15 ng/mlDDU (0-234) H 06/29/20 14:45 Abnormal lab findings: Abnormal Labs 05/28/20 05/28/20 05/28/20 13:29 13:47 13:47 WBC RBC Hgb Hct MCHC RDW 15.3 H Lymph % (Auto) [place] % (Auto) Eos % (Auto) Lymph # [place] # Lymph # (Auto) [place] # (Auto) Eos # (Auto) Seg Neutrophils % Seg Neuts % (Manual) Lymphocytes % (Manual) Seg Neutrophils # Seg Neutrophils # Man Lymphocytes # (Manual) Monocytes % (Manual) Eosinophils % (Manual) Monocytes # (Manual) Eosinophils # (Manual) D-Dimer Heparin Anti-Xa Level ABG pH POC ABG pCO2 POC ABG pO2 ABG pO2 ABG HCO3 ABG O2 Saturation ABG Base Excess ABG Hemoglobin ABG Oxyhemoglobin VBG pH ABG Sodium ABG Potassium ABG Glucose Oxyhemoglobin Sodium Potassium 6.6 H* Chloride 109.2 H Carbon Dioxide 17 L BUN 29 H Creatinine 1.3 H Glucose 265 H POC Glucose 248 H Lactic Acid Calcium 8.1 L Ferritin AST 63 H Alkaline Phosphatase Magnesium Lactate Dehydrogenase Total Creatine Kinase 301 H CK-MB (CK-2) 4.3 H C-Reactive Protein Total Protein 5.4 L Albumin 2.6 L Troponin T HDL Cholesterol Arterial Blood Glucose Urine WBC (Auto) Urine Creatinine Urine Total Protein Phenytoin Coronavirus (PCR) Crossmatch 05/28/20 05/28/20 05/28/20 13:47 13:47 14:46 WBC RBC Hgb Hct MCHC RDW Lymph % (Auto) [place] % (Auto) Eos % (Auto) Lymph # [place] # Lymph # (Auto) [place] # (Auto) Eos # (Auto) Seg Neutrophils % Seg Neuts % (Manual) Lymphocytes % (Manual) Seg Neutrophils # Seg Neutrophils # Man Lymphocytes # (Manual) Monocytes % (Manual) Eosinophils % (Manual) Monocytes # (Manual) Eosinophils # (Manual) D-Dimer Heparin Anti-Xa Level ABG pH POC ABG pCO2 POC ABG pO2 ABG pO2 ABG HCO3 ABG O2 Saturation ABG Base Excess ABG Hemoglobin ABG Oxyhemoglobin VBG pH 7.152 L* ABG Sodium ABG Potassium ABG Glucose Oxyhemoglobin Sodium Potassium 7.2 H* Chloride Carbon Dioxide BUN Creatinine Glucose POC Glucose Lactic Acid 3.40 H* Calcium Ferritin AST Alkaline Phosphatase Magnesium Lactate Dehydrogenase Total Creatine Kinase CK-MB (CK-2) C-Reactive Protein Total Protein Albumin Troponin T HDL Cholesterol Arterial Blood Glucose Urine WBC (Auto) Urine Creatinine Urine Total Protein Phenytoin Coronavirus (PCR) Crossmatch 05/28/20 05/28/20 05/28/20 15:33 15:33 15:51 WBC RBC Hgb Hct MCHC RDW Lymph % (Auto) [place] % (Auto) Eos % (Auto) Lymph # [place] # Lymph # (Auto) [place] # (Auto) Eos # (Auto) Seg Neutrophils % Seg Neuts % (Manual) Lymphocytes % (Manual) Seg Neutrophils # Seg Neutrophils # Man Lymphocytes # (Manual) Monocytes % (Manual) Eosinophils % (Manual) Monocytes # (Manual) Eosinophils # (Manual) D-Dimer 8780.43 H Heparin Anti-Xa Level ABG pH 7.284 L POC ABG pCO2 POC ABG pO2 ABG pO2 273.0 H ABG HCO3 ABG O2 Saturation 99.4 H ABG Base Excess -6.1 L ABG Hemoglobin 17.2 H ABG Oxyhemoglobin VBG pH ABG Sodium ABG Potassium ABG Glucose Oxyhemoglobin Sodium Potassium Chloride Carbon Dioxide BUN Creatinine Glucose 152 H POC Glucose Lactic Acid Calcium Ferritin AST Alkaline Phosphatase Magnesium Lactate Dehydrogenase 365 H Total Creatine Kinase CK-MB (CK-2) C-Reactive Protein Total Protein Albumin Troponin T HDL Cholesterol Arterial Blood Glucose Urine WBC (Auto) Urine Creatinine Urine Total Protein Phenytoin Coronavirus (PCR) Crossmatch 05/28/20 05/28/20 05/28/20 16:30 20:41 23:20 WBC RBC Hgb Hct MCHC RDW Lymph % (Auto) [place] % (Auto) Eos % (Auto) Lymph # [place] # Lymph # (Auto) [place] # (Auto) Eos # (Auto) Seg Neutrophils % Seg Neuts % (Manual) Lymphocytes % (Manual) Seg Neutrophils # Seg Neutrophils # Man Lymphocytes # (Manual) Monocytes % (Manual) Eosinophils % (Manual) Monocytes # (Manual) Eosinophils # (Manual) D-Dimer Heparin Anti-Xa Level ABG pH POC ABG pCO2 POC ABG pO2 ABG pO2 ABG HCO3 ABG O2 Saturation ABG Base Excess ABG Hemoglobin ABG Oxyhemoglobin VBG pH ABG Sodium ABG Potassium ABG Glucose Oxyhemoglobin Sodium Potassium Chloride Carbon Dioxide BUN Creatinine Glucose POC Glucose 225 H 224 H Lactic Acid Calcium Ferritin AST Alkaline Phosphatase Magnesium Lactate Dehydrogenase Total Creatine Kinase CK-MB (CK-2) C-Reactive Protein Total Protein Albumin Troponin T HDL Cholesterol Arterial Blood Glucose Urine WBC (Auto) 17.0 H Urine Creatinine Urine Total Protein Phenytoin Coronavirus (PCR) Crossmatch 05/28/20 05/29/20 05/29/20 Unknown 04:35 04:43 WBC RBC 3.48 L Hgb 9.8 L Hct 29.4 L MCHC RDW 16.0 H Lymph % (Auto) 7.4 L [place] % (Auto) Eos % (Auto) Lymph # 0.7 L [place] # Lymph # (Auto) [place] # (Auto) Eos # (Auto) Seg Neutrophils % 89.1 H Seg Neuts % (Manual) Lymphocytes % (Manual) Seg Neutrophils # 8.1 H Seg Neutrophils # Man Lymphocytes # (Manual) Monocytes % (Manual) Eosinophils % (Manual) Monocytes # (Manual) Eosinophils # (Manual) D-Dimer Heparin Anti-Xa Level ABG pH POC ABG pCO2 POC ABG pO2 ABG pO2 ABG HCO3 19.3 L ABG O2 Saturation ABG Base Excess -4.5 L ABG Hemoglobin 9.7 L ABG Oxyhemoglobin VBG pH ABG Sodium ABG Potassium ABG Glucose Oxyhemoglobin Sodium Potassium Chloride Carbon Dioxide BUN Creatinine Glucose POC Glucose Lactic Acid Calcium Ferritin AST Alkaline Phosphatase Magnesium Lactate Dehydrogenase Total Creatine Kinase CK-MB (CK-2) C-Reactive Protein Total Protein Albumin Troponin T HDL Cholesterol Arterial Blood Glucose Urine WBC (Auto) Urine Creatinine Urine Total Protein Phenytoin Coronavirus (PCR) Positive A Crossmatch 05/29/20 05/29/20 05/29/20 04:43 15:10 17:17 WBC RBC Hgb 9.3 L Hct 28.7 L MCHC RDW Lymph % (Auto) [place] % (Auto) Eos % (Auto) Lymph # [place] # Lymph # (Auto) [place] # (Auto) Eos # (Auto) Seg Neutrophils % Seg Neuts % (Manual) Lymphocytes % (Manual) Seg Neutrophils # Seg Neutrophils # Man Lymphocytes # (Manual) Monocytes % (Manual) Eosinophils % (Manual) Monocytes # (Manual) Eosinophils # (Manual) D-Dimer Heparin Anti-Xa Level ABG pH POC ABG pCO2 POC ABG pO2 ABG pO2 ABG HCO3 ABG O2 Saturation ABG Base Excess ABG Hemoglobin ABG Oxyhemoglobin VBG pH ABG Sodium ABG Potassium ABG Glucose Oxyhemoglobin Sodium Potassium Chloride 110.2 H Carbon Dioxide 18 L BUN 32 H Creatinine 1.4 H Glucose 180 H POC Glucose 147 H Lactic Acid Calcium Ferritin AST Alkaline Phosphatase Magnesium Lactate Dehydrogenase Total Creatine Kinase CK-MB (CK-2) C-Reactive Protein Total Protein Albumin Troponin T HDL Cholesterol Arterial Blood Glucose Urine WBC (Auto) Urine Creatinine Urine Total Protein Phenytoin Coronavirus (PCR) Crossmatch 05/30/20 05/30/20 05/30/20 00:08 00:12 04:15 WBC RBC Hgb Hct MCHC RDW Lymph % (Auto) [place] % (Auto) Eos % (Auto) Lymph # [place] # Lymph # (Auto) [place] # (Auto) Eos # (Auto) Seg Neutrophils % Seg Neuts % (Manual) Lymphocytes % (Manual) Seg Neutrophils # Seg Neutrophils # Man Lymphocytes # (Manual) Monocytes % (Manual) Eosinophils % (Manual) Monocytes # (Manual) Eosinophils # (Manual) D-Dimer Heparin Anti-Xa Level 0.71 H ABG pH 7.460 H POC ABG pCO2 POC ABG pO2 ABG pO2 106.0 H ABG HCO3 18.9 L ABG O2 Saturation ABG Base Excess -4.4 L ABG Hemoglobin 6.8 L ABG Oxyhemoglobin VBG pH ABG Sodium ABG Potassium ABG Glucose Oxyhemoglobin Sodium Potassium Chloride Carbon Dioxide BUN Creatinine Glucose POC Glucose 195 H Lactic Acid Calcium Ferritin AST Alkaline Phosphatase Magnesium Lactate Dehydrogenase Total Creatine Kinase CK-MB (CK-2) C-Reactive Protein Total Protein Albumin Troponin T HDL Cholesterol Arterial Blood Glucose Urine WBC (Auto) Urine Creatinine Urine Total Protein Phenytoin Coronavirus (PCR) Crossmatch 05/30/20 05/30/20 05/30/20 06:07 08:37 12:33 WBC RBC Hgb Hct MCHC RDW Lymph % (Auto) [place] % (Auto) Eos % (Auto) Lymph # [place] # Lymph # (Auto) [place] # (Auto) Eos # (Auto) Seg Neutrophils % Seg Neuts % (Manual) Lymphocytes % (Manual) Seg Neutrophils # Seg Neutrophils # Man Lymphocytes # (Manual) Monocytes % (Manual) Eosinophils % (Manual) Monocytes # (Manual) Eosinophils # (Manual) D-Dimer Heparin Anti-Xa Level 0.85 H ABG pH POC ABG pCO2 POC ABG pO2 ABG pO2 ABG HCO3 ABG O2 Saturation ABG Base Excess ABG Hemoglobin ABG Oxyhemoglobin VBG pH ABG Sodium ABG Potassium ABG Glucose Oxyhemoglobin Sodium Potassium Chloride Carbon Dioxide BUN Creatinine Glucose POC Glucose 182 H 187 H Lactic Acid Calcium Ferritin AST Alkaline Phosphatase Magnesium Lactate Dehydrogenase Total Creatine Kinase CK-MB (CK-2) C-Reactive Protein Total Protein Albumin Troponin T HDL Cholesterol Arterial Blood Glucose Urine WBC (Auto) Urine Creatinine Urine Total Protein Phenytoin Coronavirus (PCR) Crossmatch 05/30/20 05/30/20 05/30/20 15:58 17:57 23:36 WBC RBC Hgb Hct MCHC RDW Lymph % (Auto) [place] % (Auto) Eos % (Auto) Lymph # [place] # Lymph # (Auto) [place] # (Auto) Eos # (Auto) Seg Neutrophils % Seg Neuts % (Manual) Lymphocytes % (Manual) Seg Neutrophils # Seg Neutrophils # Man Lymphocytes # (Manual) Monocytes % (Manual) Eosinophils % (Manual) Monocytes # (Manual) Eosinophils # (Manual) D-Dimer Heparin Anti-Xa Level 1.03 H ABG pH POC ABG pCO2 POC ABG pO2 ABG pO2 ABG HCO3 ABG O2 Saturation ABG Base Excess ABG Hemoglobin ABG Oxyhemoglobin VBG pH ABG Sodium ABG Potassium ABG Glucose Oxyhemoglobin Sodium Potassium Chloride Carbon Dioxide BUN Creatinine Glucose POC Glucose 208 H 185 H Lactic Acid Calcium Ferritin AST Alkaline Phosphatase Magnesium Lactate Dehydrogenase Total Creatine Kinase CK-MB (CK-2) C-Reactive Protein Total Protein Albumin Troponin T HDL Cholesterol Arterial Blood Glucose Urine WBC (Auto) Urine Creatinine Urine Total Protein Phenytoin Coronavirus (PCR) Crossmatch 05/31/20 05/31/20 05/31/20 02:16 03:55 06:16 WBC RBC Hgb 9.2 L Hct 27.5 L MCHC RDW Lymph % (Auto) [place] % (Auto) Eos % (Auto) Lymph # [place] # Lymph # (Auto) [place] # (Auto) Eos # (Auto) Seg Neutrophils % Seg Neuts % (Manual) Lymphocytes % (Manual) Seg Neutrophils # Seg Neutrophils # Man Lymphocytes # (Manual) Monocytes % (Manual) Eosinophils % (Manual) Monocytes # (Manual) Eosinophils # (Manual) D-Dimer Heparin Anti-Xa Level ABG pH POC ABG pCO2 POC ABG pO2 ABG pO2 94.7 H ABG HCO3 18.6 L ABG O2 Saturation ABG Base Excess -5.5 L ABG Hemoglobin 7.9 L ABG Oxyhemoglobin VBG pH ABG Sodium ABG Potassium ABG Glucose Oxyhemoglobin Sodium Potassium Chloride Carbon Dioxide BUN Creatinine Glucose POC Glucose 160 H Lactic Acid Calcium Ferritin AST Alkaline Phosphatase Magnesium Lactate Dehydrogenase Total Creatine Kinase CK-MB (CK-2) C-Reactive Protein Total Protein Albumin Troponin T HDL Cholesterol Arterial Blood Glucose Urine WBC (Auto) Urine Creatinine Urine Total Protein Phenytoin Coronavirus (PCR) Crossmatch 05/31/20 05/31/20 05/31/20 12:20 13:03 18:13 WBC RBC Hgb Hct MCHC RDW Lymph % (Auto) [place] % (Auto) Eos % (Auto) Lymph # [place] # Lymph # (Auto) [place] # (Auto) Eos # (Auto) Seg Neutrophils % Seg Neuts % (Manual) Lymphocytes % (Manual) Seg Neutrophils # Seg Neutrophils # Man Lymphocytes # (Manual) Monocytes % (Manual) Eosinophils % (Manual) Monocytes # (Manual) Eosinophils # (Manual) D-Dimer Heparin Anti-Xa Level ABG pH POC ABG pCO2 POC ABG pO2 ABG pO2 ABG HCO3 ABG O2 Saturation ABG Base Excess ABG Hemoglobin ABG Oxyhemoglobin VBG pH ABG Sodium ABG Potassium ABG Glucose Oxyhemoglobin Sodium Potassium Chloride Carbon Dioxide 18 L BUN 48 H Creatinine 1.6 H Glucose 115 H POC Glucose 128 H 159 H Lactic Acid Calcium 8.3 L Ferritin AST Alkaline Phosphatase Magnesium Lactate Dehydrogenase Total Creatine Kinase CK-MB (CK-2) C-Reactive Protein Total Protein 5.4 L Albumin 2.4 L Troponin T HDL Cholesterol Arterial Blood Glucose Urine WBC (Auto) Urine Creatinine Urine Total Protein Phenytoin Coronavirus (PCR) Crossmatch 05/31/20 06/01/20 06/01/20 23:51 04:00 05:48 WBC RBC Hgb Hct MCHC RDW Lymph % (Auto) [place] % (Auto) Eos % (Auto) Lymph # [place] # Lymph # (Auto) [place] # (Auto) Eos # (Auto) Seg Neutrophils % Seg Neuts % (Manual) Lymphocytes % (Manual) Seg Neutrophils # Seg Neutrophils # Man Lymphocytes # (Manual) Monocytes % (Manual) Eosinophils % (Manual) Monocytes # (Manual) Eosinophils # (Manual) D-Dimer Heparin Anti-Xa Level ABG pH POC ABG pCO2 POC ABG pO2 ABG pO2 109.8 H ABG HCO3 18.8 L ABG O2 Saturation ABG Base Excess -5.9 L ABG Hemoglobin 7.8 L ABG Oxyhemoglobin VBG pH ABG Sodium ABG Potassium ABG Glucose Oxyhemoglobin Sodium Potassium Chloride Carbon Dioxide BUN Creatinine Glucose POC Glucose 171 H 133 H Lactic Acid Calcium Ferritin AST Alkaline Phosphatase Magnesium Lactate Dehydrogenase Total Creatine Kinase CK-MB (CK-2) C-Reactive Protein Total Protein Albumin Troponin T HDL Cholesterol Arterial Blood Glucose Urine WBC (Auto) Urine Creatinine Urine Total Protein Phenytoin Coronavirus (PCR) Crossmatch 06/01/20 06/01/20 06/02/20 12:28 17:29 00:08 WBC RBC Hgb Hct MCHC RDW Lymph % (Auto) [place] % (Auto) Eos % (Auto) Lymph # [place] # Lymph # (Auto) [place] # (Auto) Eos # (Auto) Seg Neutrophils % Seg Neuts % (Manual) Lymphocytes % (Manual) Seg Neutrophils # Seg Neutrophils # Man Lymphocytes # (Manual) Monocytes % (Manual) Eosinophils % (Manual) Monocytes # (Manual) Eosinophils # (Manual) D-Dimer Heparin Anti-Xa Level ABG pH POC ABG pCO2 POC ABG pO2 ABG pO2 ABG HCO3 ABG O2 Saturation ABG Base Excess ABG Hemoglobin ABG Oxyhemoglobin VBG pH ABG Sodium ABG Potassium ABG Glucose Oxyhemoglobin Sodium Potassium Chloride Carbon Dioxide BUN Creatinine Glucose POC Glucose 199 H 209 H 162 H Lactic Acid Calcium Ferritin AST Alkaline Phosphatase Magnesium Lactate Dehydrogenase Total Creatine Kinase CK-MB (CK-2) C-Reactive Protein Total Protein Albumin Troponin T HDL Cholesterol Arterial Blood Glucose Urine WBC (Auto) Urine Creatinine Urine Total Protein Phenytoin Coronavirus (PCR) Crossmatch 06/02/20 06/02/20 06/02/20 04:20 04:20 04:44 WBC RBC Hgb 10.0 L Hct MCHC RDW Lymph % (Auto) [place] % (Auto) Eos % (Auto) Lymph # [place] # Lymph # (Auto) [place] # (Auto) Eos # (Auto) Seg Neutrophils % Seg Neuts % (Manual) Lymphocytes % (Manual) Seg Neutrophils # Seg Neutrophils # Man Lymphocytes # (Manual) Monocytes % (Manual) Eosinophils % (Manual) Monocytes # (Manual) Eosinophils # (Manual) D-Dimer Heparin Anti-Xa Level 0.10 L ABG pH POC ABG pCO2 POC ABG pO2 ABG pO2 150.6 H ABG HCO3 ABG O2 Saturation ABG Base Excess -4.1 L ABG Hemoglobin 11.8 L ABG Oxyhemoglobin VBG pH ABG Sodium ABG Potassium ABG Glucose Oxyhemoglobin Sodium Potassium Chloride Carbon Dioxide BUN Creatinine Glucose POC Glucose Lactic Acid Calcium Ferritin AST Alkaline Phosphatase Magnesium Lactate Dehydrogenase Total Creatine Kinase CK-MB (CK-2) C-Reactive Protein Total Protein Albumin Troponin T HDL Cholesterol Arterial Blood Glucose Urine WBC (Auto) Urine Creatinine Urine Total Protein Phenytoin Coronavirus (PCR) Crossmatch 06/02/20 06/02/20 06/02/20 05:53 12:04 13:49 WBC RBC Hgb Hct MCHC RDW Lymph % (Auto) [place] % (Auto) Eos % (Auto) Lymph # [place] # Lymph # (Auto) [place] # (Auto) Eos # (Auto) Seg Neutrophils % Seg Neuts % (Manual) Lymphocytes % (Manual) Seg Neutrophils # Seg Neutrophils # Man Lymphocytes # (Manual) Monocytes % (Manual) Eosinophils % (Manual) Monocytes # (Manual) Eosinophils # (Manual) D-Dimer Heparin Anti-Xa Level 0.28 L ABG pH POC ABG pCO2 POC ABG pO2 ABG pO2 ABG HCO3 ABG O2 Saturation ABG Base Excess ABG Hemoglobin ABG Oxyhemoglobin VBG pH ABG Sodium ABG Potassium ABG Glucose Oxyhemoglobin Sodium Potassium Chloride Carbon Dioxide BUN Creatinine Glucose POC Glucose 149 H 220 H Lactic Acid Calcium Ferritin AST Alkaline Phosphatase Magnesium Lactate Dehydrogenase Total Creatine Kinase CK-MB (CK-2) C-Reactive Protein Total Protein Albumin Troponin T HDL Cholesterol Arterial Blood Glucose Urine WBC (Auto) Urine Creatinine Urine Total Protein Phenytoin Coronavirus (PCR) Crossmatch 06/02/20 06/02/20 06/03/20 13:49 18:31 00:42 WBC RBC Hgb Hct MCHC RDW Lymph % (Auto) [place] % (Auto) Eos % (Auto) Lymph # [place] # Lymph # (Auto) [place] # (Auto) Eos # (Auto) Seg Neutrophils % Seg Neuts % (Manual) Lymphocytes % (Manual) Seg Neutrophils # Seg Neutrophils # Man Lymphocytes # (Manual) Monocytes % (Manual) Eosinophils % (Manual) Monocytes # (Manual) Eosinophils # (Manual) D-Dimer 769.68 H Heparin Anti-Xa Level ABG pH POC ABG pCO2 POC ABG pO2 ABG pO2 ABG HCO3 ABG O2 Saturation ABG Base Excess ABG Hemoglobin ABG Oxyhemoglobin VBG pH ABG Sodium ABG Potassium ABG Glucose Oxyhemoglobin Sodium Potassium Chloride Carbon Dioxide BUN Creatinine Glucose POC Glucose 225 H 212 H Lactic Acid Calcium Ferritin AST Alkaline Phosphatase Magnesium Lactate Dehydrogenase Total Creatine Kinase CK-MB (CK-2) C-Reactive Protein Total Protein Albumin Troponin T HDL Cholesterol Arterial Blood Glucose Urine WBC (Auto) Urine Creatinine Urine Total Protein Phenytoin Coronavirus (PCR) Crossmatch 06/03/20 06/03/20 06/03/20 05:16 05:16 05:25 WBC 11.4 H RBC Hgb Hct MCHC RDW 16.4 H Lymph % (Auto) [place] % (Auto) Eos % (Auto) Lymph # [place] # Lymph # (Auto) [place] # (Auto) Eos # (Auto) Seg Neutrophils % Seg Neuts % (Manual) Lymphocytes % (Manual) Seg Neutrophils # Seg Neutrophils # Man Lymphocytes # (Manual) Monocytes % (Manual) Eosinophils % (Manual) Monocytes # (Manual) Eosinophils # (Manual) D-Dimer Heparin Anti-Xa Level ABG pH POC ABG pCO2 POC ABG pO2 ABG pO2 160.9 H ABG HCO3 19.4 L ABG O2 Saturation ABG Base Excess -4.9 L ABG Hemoglobin 7.0 L ABG Oxyhemoglobin VBG pH ABG Sodium ABG Potassium ABG Glucose Oxyhemoglobin Sodium Potassium Chloride Carbon Dioxide 18 L BUN 65 H Creatinine 2.0 H Glucose 175 H POC Glucose Lactic Acid Calcium 8.0 L Ferritin AST Alkaline Phosphatase Magnesium Lactate Dehydrogenase Total Creatine Kinase CK-MB (CK-2) C-Reactive Protein Total Protein 5.5 L Albumin 2.2 L Troponin T HDL Cholesterol Arterial Blood Glucose Urine WBC (Auto) Urine Creatinine Urine Total Protein Phenytoin Coronavirus (PCR) Crossmatch 06/03/20 06/03/20 06/03/20 06:07 11:58 18:24 WBC RBC Hgb Hct MCHC RDW Lymph % (Auto) [place] % (Auto) Eos % (Auto) Lymph # [place] # Lymph # (Auto) [place] # (Auto) Eos # (Auto) Seg Neutrophils % Seg Neuts % (Manual) Lymphocytes % (Manual) Seg Neutrophils # Seg Neutrophils # Man Lymphocytes # (Manual) Monocytes % (Manual) Eosinophils % (Manual) Monocytes # (Manual) Eosinophils # (Manual) D-Dimer Heparin Anti-Xa Level ABG pH POC ABG pCO2 POC ABG pO2 ABG pO2 ABG HCO3 ABG O2 Saturation ABG Base Excess ABG Hemoglobin ABG Oxyhemoglobin VBG pH ABG Sodium ABG Potassium ABG Glucose Oxyhemoglobin Sodium Potassium Chloride Carbon Dioxide BUN Creatinine Glucose POC Glucose 177 H 163 H 211 H Lactic Acid Calcium Ferritin AST Alkaline Phosphatase Magnesium Lactate Dehydrogenase Total Creatine Kinase CK-MB (CK-2) C-Reactive Protein Total Protein Albumin Troponin T HDL Cholesterol Arterial Blood Glucose Urine WBC (Auto) Urine Creatinine Urine Total Protein Phenytoin Coronavirus (PCR) Crossmatch 06/03/20 06/03/20 06/04/20 21:50 Unknown 00:26 WBC RBC Hgb Hct MCHC RDW Lymph % (Auto) [place] % (Auto) Eos % (Auto) Lymph # [place] # Lymph # (Auto) [place] # (Auto) Eos # (Auto) Seg Neutrophils % Seg Neuts % (Manual) Lymphocytes % (Manual) Seg Neutrophils # Seg Neutrophils # Man Lymphocytes # (Manual) Monocytes % (Manual) Eosinophils % (Manual) Monocytes # (Manual) Eosinophils # (Manual) D-Dimer Heparin Anti-Xa Level ABG pH POC ABG pCO2 POC ABG pO2 ABG pO2 ABG HCO3 ABG O2 Saturation ABG Base Excess ABG Hemoglobin ABG Oxyhemoglobin VBG pH ABG Sodium ABG Potassium ABG Glucose Oxyhemoglobin Sodium 135 L Potassium Chloride Carbon Dioxide 18 L BUN Creatinine Glucose POC Glucose 241 H Lactic Acid Calcium Ferritin AST Alkaline Phosphatase Magnesium Lactate Dehydrogenase Total Creatine Kinase CK-MB (CK-2) C-Reactive Protein Total Protein Albumin Troponin T HDL Cholesterol Arterial Blood Glucose Urine WBC (Auto) 11.0 H Urine Creatinine Urine Total Protein Phenytoin Coronavirus (PCR) Crossmatch 06/04/20 06/04/20 06/04/20 03:35 04:19 04:19 WBC RBC 3.15 L Hgb 8.9 L Hct 26.8 L D MCHC RDW 15.9 H Lymph % (Auto) 6.0 L [place] % (Auto) Eos % (Auto) Lymph # 0.6 L [place] # Lymph # (Auto) [place] # (Auto) Eos # (Auto) Seg Neutrophils % 86.6 H Seg Neuts % (Manual) Lymphocytes % (Manual) Seg Neutrophils # 9.1 H Seg Neutrophils # Man Lymphocytes # (Manual) Monocytes % (Manual) Eosinophils % (Manual) Monocytes # (Manual) Eosinophils # (Manual) D-Dimer Heparin Anti-Xa Level ABG pH 7.331 L POC ABG pCO2 POC ABG pO2 ABG pO2 ABG HCO3 ABG O2 Saturation ABG Base Excess -4.7 L ABG Hemoglobin 11.0 L ABG Oxyhemoglobin VBG pH ABG Sodium ABG Potassium ABG Glucose Oxyhemoglobin 93.9 L Sodium 136 L Potassium Chloride Carbon Dioxide 20 L BUN 73 H Creatinine 2.0 H Glucose 192 H POC Glucose Lactic Acid Calcium 8.0 L Ferritin AST Alkaline Phosphatase Magnesium Lactate Dehydrogenase 271 H Total Creatine Kinase CK-MB (CK-2) C-Reactive Protein 2.20 H Total Protein 5.0 L Albumin 2.0 L Troponin T HDL Cholesterol Arterial Blood Glucose Urine WBC (Auto) Urine Creatinine Urine Total Protein Phenytoin Coronavirus (PCR) Crossmatch 06/04/20 06/04/20 06/04/20 04:19 05:51 11:48 WBC RBC Hgb Hct MCHC RDW Lymph % (Auto) [place] % (Auto) Eos % (Auto) Lymph # [place] # Lymph # (Auto) [place] # (Auto) Eos # (Auto) Seg Neutrophils % Seg Neuts % (Manual) Lymphocytes % (Manual) Seg Neutrophils # Seg Neutrophils # Man Lymphocytes # (Manual) Monocytes % (Manual) Eosinophils % (Manual) Monocytes # (Manual) Eosinophils # (Manual) D-Dimer 414.52 H Heparin Anti-Xa Level ABG pH POC ABG pCO2 POC ABG pO2 ABG pO2 ABG HCO3 ABG O2 Saturation ABG Base Excess ABG Hemoglobin ABG Oxyhemoglobin VBG pH ABG Sodium ABG Potassium ABG Glucose Oxyhemoglobin Sodium Potassium Chloride Carbon Dioxide BUN Creatinine Glucose POC Glucose 179 H 213 H Lactic Acid Calcium Ferritin AST Alkaline Phosphatase Magnesium Lactate Dehydrogenase Total Creatine Kinase CK-MB (CK-2) C-Reactive Protein Total Protein Albumin Troponin T HDL Cholesterol Arterial Blood Glucose Urine WBC (Auto) Urine Creatinine Urine Total Protein Phenytoin Coronavirus (PCR) Crossmatch 06/04/20 06/05/20 06/05/20 18:25 00:16 05:00 WBC RBC Hgb Hct MCHC RDW Lymph % (Auto) [place] % (Auto) Eos % (Auto) Lymph # [place] # Lymph # (Auto) [place] # (Auto) Eos # (Auto) Seg Neutrophils % Seg Neuts % (Manual) Lymphocytes % (Manual) Seg Neutrophils # Seg Neutrophils # Man Lymphocytes # (Manual) Monocytes % (Manual) Eosinophils % (Manual) Monocytes # (Manual) Eosinophils # (Manual) D-Dimer Heparin Anti-Xa Level ABG pH 7.286 L POC ABG pCO2 POC ABG pO2 ABG pO2 96.2 H ABG HCO3 ABG O2 Saturation ABG Base Excess -6.3 L ABG Hemoglobin 8.8 L ABG Oxyhemoglobin VBG pH ABG Sodium ABG Potassium ABG Glucose Oxyhemoglobin 94.8 L Sodium Potassium Chloride Carbon Dioxide BUN Creatinine Glucose POC Glucose 238 H 183 H Lactic Acid Calcium Ferritin AST Alkaline Phosphatase Magnesium Lactate Dehydrogenase Total Creatine Kinase CK-MB (CK-2) C-Reactive Protein Total Protein Albumin Troponin T HDL Cholesterol Arterial Blood Glucose Urine WBC (Auto) Urine Creatinine Urine Total Protein Phenytoin Coronavirus (PCR) Crossmatch 06/05/20 06/05/20 06/05/20 05:39 07:25 07:25 WBC RBC 2.97 L Hgb 8.7 L Hct 25.7 L MCHC RDW 16.0 H Lymph % (Auto) 8.8 L [place] % (Auto) 13.3 H Eos % (Auto) Lymph # 0.8 L [place] # 1.3 H Lymph # (Auto) [place] # (Auto) Eos # (Auto) Seg Neutrophils % 77.3 H Seg Neuts % (Manual) Lymphocytes % (Manual) Seg Neutrophils # Seg Neutrophils # Man Lymphocytes # (Manual) Monocytes % (Manual) Eosinophils % (Manual) Monocytes # (Manual) Eosinophils # (Manual) D-Dimer Heparin Anti-Xa Level ABG pH POC ABG pCO2 POC ABG pO2 ABG pO2 ABG HCO3 ABG O2 Saturation ABG Base Excess ABG Hemoglobin ABG Oxyhemoglobin VBG pH ABG Sodium ABG Potassium ABG Glucose Oxyhemoglobin Sodium 133 L Potassium Chloride Carbon Dioxide 17 L BUN 89 H Creatinine 2.8 H Glucose 176 H POC Glucose 149 H Lactic Acid Calcium 7.7 L Ferritin AST Alkaline Phosphatase Magnesium Lactate Dehydrogenase Total Creatine Kinase CK-MB (CK-2) C-Reactive Protein Total Protein 4.2 L Albumin 1.9 L Troponin T HDL Cholesterol Arterial Blood Glucose Urine WBC (Auto) Urine Creatinine Urine Total Protein Phenytoin Coronavirus (PCR) Crossmatch 06/05/20 06/05/20 06/05/20 07:25 12:05 15:41 WBC RBC Hgb Hct MCHC RDW Lymph % (Auto) [place] % (Auto) Eos % (Auto) Lymph # [place] # Lymph # (Auto) [place] # (Auto) Eos # (Auto) Seg Neutrophils % Seg Neuts % (Manual) Lymphocytes % (Manual) Seg Neutrophils # Seg Neutrophils # Man Lymphocytes # (Manual) Monocytes % (Manual) Eosinophils % (Manual) Monocytes # (Manual) Eosinophils # (Manual) D-Dimer Heparin Anti-Xa Level 0.76 H 0.81 H ABG pH POC ABG pCO2 POC ABG pO2 ABG pO2 ABG HCO3 ABG O2 Saturation ABG Base Excess ABG Hemoglobin ABG Oxyhemoglobin VBG pH ABG Sodium ABG Potassium ABG Glucose Oxyhemoglobin Sodium Potassium Chloride Carbon Dioxide BUN Creatinine Glucose POC Glucose 198 H Lactic Acid Calcium Ferritin AST Alkaline Phosphatase Magnesium Lactate Dehydrogenase Total Creatine Kinase CK-MB (CK-2) C-Reactive Protein Total Protein Albumin Troponin T HDL Cholesterol Arterial Blood Glucose Urine WBC (Auto) Urine Creatinine Urine Total Protein Phenytoin Coronavirus (PCR) Crossmatch 06/05/20 06/05/20 06/06/20 18:08 23:25 04:00 WBC RBC Hgb Hct MCHC RDW Lymph % (Auto) [place] % (Auto) Eos % (Auto) Lymph # [place] # Lymph # (Auto) [place] # (Auto) Eos # (Auto) Seg Neutrophils % Seg Neuts % (Manual) Lymphocytes % (Manual) Seg Neutrophils # Seg Neutrophils # Man Lymphocytes # (Manual) Monocytes % (Manual) Eosinophils % (Manual) Monocytes # (Manual) Eosinophils # (Manual) D-Dimer Heparin Anti-Xa Level ABG pH POC ABG pCO2 POC ABG pO2 ABG pO2 ABG HCO3 ABG O2 Saturation ABG Base Excess ABG Hemoglobin ABG Oxyhemoglobin VBG pH ABG Sodium ABG Potassium ABG Glucose Oxyhemoglobin Sodium Potassium Chloride Carbon Dioxide BUN Creatinine Glucose POC Glucose 223 H 169 H Lactic Acid Calcium Ferritin AST Alkaline Phosphatase Magnesium Lactate Dehydrogenase Total Creatine Kinase CK-MB (CK-2) C-Reactive Protein Total Protein Albumin Troponin T HDL Cholesterol Arterial Blood Glucose Urine WBC (Auto) 15.0 H Urine Creatinine Urine Total Protein Phenytoin Coronavirus (PCR) Crossmatch 06/06/20 06/06/20 06/06/20 04:00 05:33 05:38 WBC RBC 2.97 L Hgb 8.7 L Hct 26.8 L MCHC RDW 16.8 H Lymph % (Auto) [place] % (Auto) Eos % (Auto) Lymph # [place] # Lymph # (Auto) [place] # (Auto) Eos # (Auto) Seg Neutrophils % Seg Neuts % (Manual) Lymphocytes % (Manual) Seg Neutrophils # Seg Neutrophils # Man Lymphocytes # (Manual) Monocytes % (Manual) Eosinophils % (Manual) Monocytes # (Manual) Eosinophils # (Manual) D-Dimer Heparin Anti-Xa Level ABG pH POC ABG pCO2 POC ABG pO2 ABG pO2 ABG HCO3 ABG O2 Saturation ABG Base Excess ABG Hemoglobin ABG Oxyhemoglobin VBG pH ABG Sodium ABG Potassium ABG Glucose Oxyhemoglobin Sodium Potassium Chloride Carbon Dioxide BUN Creatinine Glucose POC Glucose 186 H Lactic Acid Calcium Ferritin AST Alkaline Phosphatase Magnesium Lactate Dehydrogenase Total Creatine Kinase CK-MB (CK-2) C-Reactive Protein Total Protein Albumin Troponin T HDL Cholesterol Arterial Blood Glucose Urine WBC (Auto) Urine Creatinine 82.2 H Urine Total Protein 196 H Phenytoin Coronavirus (PCR) Crossmatch 06/06/20 06/06/20 06/06/20 05:38 12:25 17:03 WBC RBC Hgb Hct MCHC RDW Lymph % (Auto) [place] % (Auto) Eos % (Auto) Lymph # [place] # Lymph # (Auto) [place] # (Auto) Eos # (Auto) Seg Neutrophils % Seg Neuts % (Manual) Lymphocytes % (Manual) Seg Neutrophils # Seg Neutrophils # Man Lymphocytes # (Manual) Monocytes % (Manual) Eosinophils % (Manual) Monocytes # (Manual) Eosinophils # (Manual) D-Dimer Heparin Anti-Xa Level ABG pH POC ABG pCO2 POC ABG pO2 ABG pO2 ABG HCO3 ABG O2 Saturation ABG Base Excess ABG Hemoglobin ABG Oxyhemoglobin VBG pH ABG Sodium ABG Potassium ABG Glucose Oxyhemoglobin Sodium 134 L Potassium 5.2 H Chloride Carbon Dioxide 18 L BUN 97 H Creatinine 2.5 H Glucose 193 H POC Glucose 239 H 252 H Lactic Acid Calcium 7.5 L Ferritin AST Alkaline Phosphatase Magnesium Lactate Dehydrogenase Total Creatine Kinase CK-MB (CK-2) C-Reactive Protein Total Protein 4.1 L Albumin 1.9 L Troponin T HDL Cholesterol Arterial Blood Glucose Urine WBC (Auto) Urine Creatinine Urine Total Protein Phenytoin Coronavirus (PCR) Crossmatch 06/07/20 06/07/20 06/07/20 00:16 01:49 04:00 WBC RBC 2.91 L Hgb 8.4 L Hct 25.0 L MCHC RDW 16.1 H Lymph % (Auto) 5.7 L [place] % (Auto) 10.5 H Eos % (Auto) Lymph # 0.6 L [place] # 1.1 H Lymph # (Auto) [place] # (Auto) Eos # (Auto) Seg Neutrophils % 83.6 H Seg Neuts % (Manual) Lymphocytes % (Manual) Seg Neutrophils # 9.1 H Seg Neutrophils # Man Lymphocytes # (Manual) Monocytes % (Manual) Eosinophils % (Manual) Monocytes # (Manual) Eosinophils # (Manual) D-Dimer Heparin Anti-Xa Level 0.26 L ABG pH POC ABG pCO2 POC ABG pO2 ABG pO2 ABG HCO3 ABG O2 Saturation ABG Base Excess ABG Hemoglobin ABG Oxyhemoglobin VBG pH ABG Sodium ABG Potassium ABG Glucose Oxyhemoglobin Sodium Potassium Chloride Carbon Dioxide BUN Creatinine Glucose POC Glucose 173 H Lactic Acid Calcium Ferritin AST Alkaline Phosphatase Magnesium Lactate Dehydrogenase Total Creatine Kinase CK-MB (CK-2) C-Reactive Protein Total Protein Albumin Troponin T HDL Cholesterol Arterial Blood Glucose Urine WBC (Auto) Urine Creatinine Urine Total Protein Phenytoin Coronavirus (PCR) Crossmatch 06/07/20 06/07/2006/07/20 04:00 04:54 05:51 WBC RBC Hgb Hct MCHC RDW Lymph % (Auto) [place] % (Auto) Eos % (Auto) Lymph # [place] # Lymph # (Auto) [place] # (Auto) Eos # (Auto) Seg Neutrophils % Seg Neuts % (Manual) Lymphocytes % (Manual) Seg Neutrophils # Seg Neutrophils # Man Lymphocytes # (Manual) Monocytes % (Manual) Eosinophils % (Manual) Monocytes # (Manual) Eosinophils # (Manual) D-Dimer Heparin Anti-Xa Level ABG pH 7.317 L POC ABG pCO2 POC ABG pO2 ABG pO2 71.4 L ABG HCO3 ABG O2 Saturation 94.3 L ABG Base Excess -4.8 L ABG Hemoglobin 7.1 L ABG Oxyhemoglobin VBG pH ABG Sodium ABG Potassium ABG Glucose Oxyhemoglobin 92.2 L Sodium 133 L Potassium Chloride Carbon Dioxide 18 L BUN 100 H Creatinine 2.5 H Glucose 158 H POC Glucose 168 H Lactic Acid Calcium 7.6 L Ferritin AST Alkaline Phosphatase Magnesium Lactate Dehydrogenase Total Creatine Kinase CK-MB (CK-2) C-Reactive Protein Total Protein 4.7 L Albumin 2.0 L Troponin T HDL Cholesterol Arterial Blood Glucose Urine WBC (Auto) Urine Creatinine Urine Total Protein Phenytoin Coronavirus (PCR) Crossmatch 06/07/20 06/07/20 06/07/20 12:03 17:17 20:10 WBC RBC Hgb Hct MCHC RDW Lymph % (Auto) [place] % (Auto) Eos % (Auto) Lymph # [place] # Lymph # (Auto) [place] # (Auto) Eos # (Auto) Seg Neutrophils % Seg Neuts % (Manual) Lymphocytes % (Manual) Seg Neutrophils # Seg Neutrophils # Man Lymphocytes # (Manual) Monocytes % (Manual) Eosinophils % (Manual) Monocytes # (Manual) Eosinophils # (Manual) D-Dimer Heparin Anti-Xa Level 0.17 L ABG pH POC ABG pCO2 POC ABG pO2 ABG pO2 ABG HCO3 ABG O2 Saturation ABG Base Excess ABG Hemoglobin ABG Oxyhemoglobin VBG pH ABG Sodium ABG Potassium ABG Glucose Oxyhemoglobin Sodium Potassium Chloride Carbon Dioxide BUN Creatinine Glucose POC Glucose 276 H 281 H Lactic Acid Calcium Ferritin AST Alkaline Phosphatase Magnesium Lactate Dehydrogenase Total Creatine Kinase CK-MB (CK-2) C-Reactive Protein Total Protein Albumin Troponin T HDL Cholesterol Arterial Blood Glucose Urine WBC (Auto) Urine Creatinine Urine Total Protein Phenytoin Coronavirus (PCR) Crossmatch 06/08/20 06/08/20 06/08/20 00:02 04:47 04:47 WBC 16.4 H RBC 3.07 L Hgb 8.6 L Hct 26.5 L MCHC RDW 16.3 H Lymph % (Auto) [place] % (Auto) Eos % (Auto) Lymph # [place] # Lymph # (Auto) [place] # (Auto) Eos # (Auto) Seg Neutrophils % Seg Neuts % (Manual) 90.0 H Lymphocytes % (Manual) 3.0 L Seg Neutrophils # Seg Neutrophils # Man 14.8 H Lymphocytes # (Manual) 0.5 L Monocytes % (Manual) Eosinophils % (Manual) Monocytes # (Manual) 1.1 H Eosinophils # (Manual) D-Dimer Heparin Anti-Xa Level ABG pH POC ABG pCO2 POC ABG pO2 ABG pO2 ABG HCO3 ABG O2 Saturation ABG Base Excess ABG Hemoglobin ABG Oxyhemoglobin VBG pH ABG Sodium ABG Potassium ABG Glucose Oxyhemoglobin Sodium 129 L Potassium Chloride 95.6 L Carbon Dioxide 17 L BUN 106 H Creatinine 2.5 H Glucose 213 H POC Glucose 242 H Lactic Acid Calcium 7.6 L Ferritin AST Alkaline Phosphatase Magnesium Lactate Dehydrogenase Total Creatine Kinase CK-MB (CK-2) C-Reactive Protein Total Protein 5.0 L Albumin 2.1 L Troponin T HDL Cholesterol Arterial Blood Glucose Urine WBC (Auto) Urine Creatinine Urine Total Protein Phenytoin Coronavirus (PCR) Crossmatch 06/08/20 06/08/20 06/08/20 05:40 11:55 17:54 WBC RBC Hgb Hct MCHC RDW Lymph % (Auto) [place] % (Auto) Eos % (Auto) Lymph # [place] # Lymph # (Auto) [place] # (Auto) Eos # (Auto) Seg Neutrophils % Seg Neuts % (Manual) Lymphocytes % (Manual) Seg Neutrophils # Seg Neutrophils # Man Lymphocytes # (Manual) Monocytes % (Manual) Eosinophils % (Manual) Monocytes # (Manual) Eosinophils # (Manual) D-Dimer Heparin Anti-Xa Level ABG pH POC ABG pCO2 POC ABG pO2 ABG pO2 ABG HCO3 ABG O2 Saturation ABG Base Excess ABG Hemoglobin ABG Oxyhemoglobin VBG pH ABG Sodium ABG Potassium ABG Glucose Oxyhemoglobin Sodium Potassium Chloride Carbon Dioxide BUN Creatinine Glucose POC Glucose 221 H 218 H 163 H Lactic Acid Calcium Ferritin AST Alkaline Phosphatase Magnesium Lactate Dehydrogenase Total Creatine Kinase CK-MB (CK-2) C-Reactive Protein Total Protein Albumin Troponin T HDL Cholesterol Arterial Blood Glucose Urine WBC (Auto) Urine Creatinine Urine Total Protein Phenytoin Coronavirus (PCR) Crossmatch 06/08/20 06/09/20 06/09/20 22:01 00:09 05:16 WBC 19.0 H RBC 3.35 L Hgb 9.2 L Hct 28.5 L MCHC RDW 16.3 H Lymph % (Auto) [place] % (Auto) Eos % (Auto) Lymph # [place] # Lymph # (Auto) [place] # (Auto) Eos # (Auto) Seg Neutrophils % Seg Neuts % (Manual) 85.0 H Lymphocytes % (Manual) 7.0 L Seg Neutrophils # Seg Neutrophils # Man 16.2 H Lymphocytes # (Manual) Monocytes % (Manual) Eosinophils % (Manual) Monocytes # (Manual) 1.3 H Eosinophils # (Manual) D-Dimer Heparin Anti-Xa Level ABG pH POC ABG pCO2 POC ABG pO2 ABG pO2 ABG HCO3 ABG O2 Saturation ABG Base Excess ABG Hemoglobin ABG Oxyhemoglobin VBG pH ABG Sodium ABG Potassium ABG Glucose Oxyhemoglobin Sodium Potassium Chloride Carbon Dioxide BUN Creatinine Glucose POC Glucose 182 H 150 H Lactic Acid Calcium Ferritin AST Alkaline Phosphatase Magnesium Lactate Dehydrogenase Total Creatine Kinase CK-MB (CK-2) C-Reactive Protein Total Protein Albumin Troponin T HDL Cholesterol Arterial Blood Glucose Urine WBC (Auto) Urine Creatinine Urine Total Protein Phenytoin Coronavirus (PCR) Crossmatch 06/09/20 06/09/20 06/09/20 05:16 05:24 11:29 WBC RBC Hgb Hct MCHC RDW Lymph % (Auto) [place] % (Auto) Eos % (Auto) Lymph # [place] # Lymph # (Auto) [place] # (Auto) Eos # (Auto) Seg Neutrophils % Seg Neuts % (Manual) Lymphocytes % (Manual) Seg Neutrophils # Seg Neutrophils # Man Lymphocytes # (Manual) Monocytes % (Manual) Eosinophils % (Manual) Monocytes # (Manual) Eosinophils # (Manual) D-Dimer Heparin Anti-Xa Level ABG pH POC ABG pCO2 POC ABG pO2 ABG pO2 ABG HCO3 ABG O2 Saturation ABG Base Excess ABG Hemoglobin ABG Oxyhemoglobin VBG pH ABG Sodium ABG Potassium ABG Glucose Oxyhemoglobin Sodium 133 L Potassium Chloride Carbon Dioxide 19 L BUN 109 H Creatinine 2.1 H Glucose 133 H POC Glucose 128 H 119 H Lactic Acid Calcium 7.7 L Ferritin AST Alkaline Phosphatase < 5 L Magnesium Lactate Dehydrogenase Total Creatine Kinase CK-MB (CK-2) C-Reactive Protein Total Protein 4.6 L Albumin < 0.2 L Troponin T HDL Cholesterol Arterial Blood Glucose Urine WBC (Auto) Urine Creatinine Urine Total Protein Phenytoin Coronavirus (PCR) Crossmatch 06/09/20 06/10/20 06/10/20 17:32 00:00 05:49 WBC RBC Hgb Hct MCHC RDW Lymph % (Auto) [place] % (Auto) Eos % (Auto) Lymph # [place] # Lymph # (Auto) [place] # (Auto) Eos # (Auto) Seg Neutrophils % Seg Neuts % (Manual) Lymphocytes % (Manual) Seg Neutrophils # Seg Neutrophils # Man Lymphocytes # (Manual) Monocytes % (Manual) Eosinophils % (Manual) Monocytes # (Manual) Eosinophils # (Manual) D-Dimer Heparin Anti-Xa Level 0.19 L ABG pH POC ABG pCO2 POC ABG pO2 ABG pO2 ABG HCO3 ABG O2 Saturation ABG Base Excess ABG Hemoglobin ABG Oxyhemoglobin VBG pH ABG Sodium ABG Potassium ABG Glucose Oxyhemoglobin Sodium Potassium Chloride Carbon Dioxide BUN Creatinine Glucose POC Glucose 106 H 117 H Lactic Acid Calcium Ferritin AST Alkaline Phosphatase Magnesium Lactate Dehydrogenase Total Creatine Kinase CK-MB (CK-2) C-Reactive Protein Total Protein Albumin Troponin T HDL Cholesterol Arterial Blood Glucose Urine WBC (Auto) Urine Creatinine Urine Total Protein Phenytoin Coronavirus (PCR) Crossmatch 06/10/20 06/10/20 06/10/20 05:54 07:40 11:40 WBC RBC Hgb Hct MCHC RDW Lymph % (Auto) [place] % (Auto) Eos % (Auto) Lymph # [place] # Lymph # (Auto) [place] # (Auto) Eos # (Auto) Seg Neutrophils % Seg Neuts % (Manual) Lymphocytes % (Manual) Seg Neutrophils # Seg Neutrophils # Man Lymphocytes # (Manual) Monocytes % (Manual) Eosinophils % (Manual) Monocytes # (Manual) Eosinophils # (Manual) D-Dimer Heparin Anti-Xa Level ABG pH POC ABG pCO2 POC ABG pO2 ABG pO2 ABG HCO3 ABG O2 Saturation ABG Base Excess ABG Hemoglobin ABG Oxyhemoglobin VBG pH ABG Sodium ABG Potassium ABG Glucose Oxyhemoglobin Sodium 146 H D Potassium Chloride Carbon Dioxide 20 L BUN 99 H Creatinine 1.9 H Glucose 121 H POC Glucose 127 H 138 H Lactic Acid Calcium 8.2 L Ferritin AST Alkaline Phosphatase Magnesium Lactate Dehydrogenase Total Creatine Kinase CK-MB (CK-2) C-Reactive Protein Total Protein Albumin Troponin T HDL Cholesterol Arterial Blood Glucose Urine WBC (Auto) Urine Creatinine Urine Total Protein Phenytoin Coronavirus (PCR) Crossmatch 06/10/20 06/10/20 06/10/20 14:44 17:31 23:22 WBC RBC Hgb Hct MCHC RDW Lymph % (Auto) [place] % (Auto) Eos % (Auto) Lymph # [place] # Lymph # (Auto) [place] # (Auto) Eos # (Auto) Seg Neutrophils % Seg Neuts % (Manual) Lymphocytes % (Manual) Seg Neutrophils # Seg Neutrophils # Man Lymphocytes # (Manual) Monocytes % (Manual) Eosinophils % (Manual) Monocytes # (Manual) Eosinophils # (Manual) D-Dimer Heparin Anti-Xa Level 0.17 L ABG pH POC ABG pCO2 POC ABG pO2 ABG pO2 ABG HCO3 ABG O2 Saturation ABG Base Excess ABG Hemoglobin ABG Oxyhemoglobin VBG pH ABG Sodium ABG Potassium ABG Glucose Oxyhemoglobin Sodium Potassium Chloride Carbon Dioxide BUN Creatinine Glucose POC Glucose 128 H 114 H Lactic Acid Calcium Ferritin AST Alkaline Phosphatase Magnesium Lactate Dehydrogenase Total Creatine Kinase CK-MB (CK-2) C-Reactive Protein Total Protein Albumin Troponin T HDL Cholesterol Arterial Blood Glucose Urine WBC (Auto) Urine Creatinine Urine Total Protein Phenytoin Coronavirus (PCR) Crossmatch 06/11/20 06/11/20 06/11/20 00:22 03:45 03:45 WBC 14.6 H RBC 2.77 L Hgb 7.9 L Hct 24.3 L MCHC RDW 16.8 H Lymph % (Auto) 6.6 L [place] % (Auto) 8.5 H Eos % (Auto) Lymph # 1.0 L [place] # 1.2 H Lymph # (Auto) [place] # (Auto) Eos # (Auto) Seg Neutrophils % 82.9 H Seg Neuts % (Manual) Lymphocytes % (Manual) Seg Neutrophils # 12.1 H Seg Neutrophils # Man Lymphocytes # (Manual) Monocytes % (Manual) Eosinophils % (Manual) Monocytes # (Manual) Eosinophils # (Manual) D-Dimer Heparin Anti-Xa Level 0.24 L ABG pH POC ABG pCO2 POC ABG pO2 ABG pO2 ABG HCO3 ABG O2 Saturation ABG Base Excess ABG Hemoglobin ABG Oxyhemoglobin VBG pH ABG Sodium ABG Potassium ABG Glucose Oxyhemoglobin Sodium Potassium Chloride Carbon Dioxide 20 L BUN 88 H Creatinine 1.5 H Glucose 111 H POC Glucose Lactic Acid Calcium 8.2 L Ferritin AST Alkaline Phosphatase Magnesium Lactate Dehydrogenase Total Creatine Kinase CK-MB (CK-2) C-Reactive Protein Total Protein Albumin Troponin T HDL Cholesterol Arterial Blood Glucose Urine WBC (Auto) Urine Creatinine Urine Total Protein Phenytoin Coronavirus (PCR) Crossmatch 06/11/20 06/11/20 06/11/20 06:03 10:22 11:11 WBC RBC Hgb Hct MCHC RDW Lymph % (Auto) [place] % (Auto) Eos % (Auto) Lymph # [place] # Lymph # (Auto) [place] # (Auto) Eos # (Auto) Seg Neutrophils % Seg Neuts % (Manual) Lymphocytes % (Manual) Seg Neutrophils # Seg Neutrophils # Man Lymphocytes # (Manual) Monocytes % (Manual) Eosinophils % (Manual) Monocytes # (Manual) Eosinophils # (Manual) D-Dimer Heparin Anti-Xa Level 0.26 L ABG pH POC ABG pCO2 POC ABG pO2 ABG pO2 ABG HCO3 ABG O2 Saturation ABG Base Excess ABG Hemoglobin 9.6 L ABG Oxyhemoglobin VBG pH ABG Sodium ABG Potassium ABG Glucose Oxyhemoglobin Sodium Potassium Chloride Carbon Dioxide BUN Creatinine Glucose POC Glucose 114 H Lactic Acid Calcium Ferritin AST Alkaline Phosphatase Magnesium Lactate Dehydrogenase Total Creatine Kinase CK-MB (CK-2) C-Reactive Protein Total Protein Albumin Troponin T HDL Cholesterol Arterial Blood Glucose Urine WBC (Auto) Urine Creatinine Urine Total Protein Phenytoin Coronavirus (PCR) Crossmatch 06/11/20 06/11/20 06/12/20 12:24 17:24 00:21 WBC RBC Hgb Hct MCHC RDW Lymph % (Auto) [place] % (Auto) Eos % (Auto) Lymph # [place] # Lymph # (Auto) [place] # (Auto) Eos # (Auto) Seg Neutrophils % Seg Neuts % (Manual) Lymphocytes % (Manual) Seg Neutrophils # Seg Neutrophils # Man Lymphocytes # (Manual) Monocytes % (Manual) Eosinophils % (Manual) Monocytes # (Manual) Eosinophils # (Manual) D-Dimer Heparin Anti-Xa Level ABG pH POC ABG pCO2 POC ABG pO2 ABG pO2 ABG HCO3 ABG O2 Saturation ABG Base Excess ABG Hemoglobin ABG Oxyhemoglobin VBG pH ABG Sodium ABG Potassium ABG Glucose Oxyhemoglobin Sodium Potassium Chloride Carbon Dioxide BUN Creatinine Glucose POC Glucose 119 H 126 H 117 H Lactic Acid Calcium Ferritin AST Alkaline Phosphatase Magnesium Lactate Dehydrogenase Total Creatine Kinase CK-MB (CK-2) C-Reactive Protein Total Protein Albumin Troponin T HDL Cholesterol Arterial Blood Glucose Urine WBC (Auto) Urine Creatinine Urine Total Protein Phenytoin Coronavirus (PCR) Crossmatch 06/12/20 06/12/20 06/12/20 02:46 02:46 05:46 WBC 13.2 H RBC 2.83 L Hgb 8.3 L Hct 24.3 L MCHC RDW 16.6 H Lymph % (Auto) 6.2 L [place] % (Auto) 9.5 H Eos % (Auto) Lymph # 0.8 L [place] # 1.3 H Lymph # (Auto) [place] # (Auto) Eos # (Auto) Seg Neutrophils % 81.9 H Seg Neuts % (Manual) Lymphocytes % (Manual) Seg Neutrophils # 10.9 H Seg Neutrophils # Man Lymphocytes # (Manual) Monocytes % (Manual) Eosinophils % (Manual) Monocytes # (Manual) Eosinophils # (Manual) D-Dimer Heparin Anti-Xa Level ABG pH POC ABG pCO2 POC ABG pO2 ABG pO2 ABG HCO3 ABG O2 Saturation ABG Base Excess ABG Hemoglobin ABG Oxyhemoglobin VBG pH ABG Sodium ABG Potassium ABG Glucose Oxyhemoglobin Sodium Potassium 3.5 L Chloride Carbon Dioxide BUN 77 H Creatinine 1.3 H Glucose POC Glucose 132 H Lactic Acid Calcium 8.3 L Ferritin AST Alkaline Phosphatase Magnesium Lactate Dehydrogenase Total Creatine Kinase CK-MB (CK-2) C-Reactive Protein Total Protein Albumin Troponin T HDL Cholesterol Arterial Blood Glucose Urine WBC (Auto) Urine Creatinine Urine Total Protein Phenytoin Coronavirus (PCR) Crossmatch 06/12/20 06/12/20 06/12/20 09:20 12:16 17:48 WBC RBC Hgb Hct MCHC RDW Lymph % (Auto) [place] % (Auto) Eos % (Auto) Lymph # [place] # Lymph # (Auto) [place] # (Auto) Eos # (Auto) Seg Neutrophils % Seg Neuts % (Manual) Lymphocytes % (Manual) Seg Neutrophils # Seg Neutrophils # Man Lymphocytes # (Manual) Monocytes % (Manual) Eosinophils % (Manual) Monocytes # (Manual) Eosinophils # (Manual) D-Dimer Heparin Anti-Xa Level ABG pH POC ABG pCO2 POC ABG pO2 ABG pO2 91.1 H ABG HCO3 ABG O2 Saturation ABG Base Excess ABG Hemoglobin ABG Oxyhemoglobin VBG pH ABG Sodium ABG Potassium ABG Glucose Oxyhemoglobin 94.8 L Sodium Potassium Chloride Carbon Dioxide BUN Creatinine Glucose POC Glucose 167 H 182 H Lactic Acid Calcium Ferritin AST Alkaline Phosphatase Magnesium Lactate Dehydrogenase Total Creatine Kinase CK-MB (CK-2) C-Reactive Protein Total Protein Albumin Troponin T HDL Cholesterol Arterial Blood Glucose Urine WBC (Auto) Urine Creatinine Urine Total Protein Phenytoin Coronavirus (PCR) Crossmatch 06/13/20 06/13/20 06/13/20 00:08 05:37 09:09 WBC RBC Hgb Hct MCHC RDW Lymph % (Auto) [place] % (Auto) Eos % (Auto) Lymph # [place] # Lymph # (Auto) [place] # (Auto) Eos # (Auto) Seg Neutrophils % Seg Neuts % (Manual) Lymphocytes % (Manual) Seg Neutrophils # Seg Neutrophils # Man Lymphocytes # (Manual) Monocytes % (Manual) Eosinophils % (Manual) Monocytes # (Manual) Eosinophils # (Manual) D-Dimer Heparin Anti-Xa Level 0.86 H ABG pH POC ABG pCO2 POC ABG pO2 ABG pO2 ABG HCO3 ABG O2 Saturation ABG Base Excess ABG Hemoglobin ABG Oxyhemoglobin VBG pH ABG Sodium ABG Potassium ABG Glucose Oxyhemoglobin Sodium Potassium Chloride Carbon Dioxide BUN Creatinine Glucose POC Glucose 142 H 119 H Lactic Acid Calcium Ferritin AST Alkaline Phosphatase Magnesium Lactate Dehydrogenase Total Creatine Kinase CK-MB (CK-2) C-Reactive Protein Total Protein Albumin Troponin T HDL Cholesterol Arterial Blood Glucose Urine WBC (Auto) Urine Creatinine Urine Total Protein Phenytoin Coronavirus (PCR) Crossmatch 06/13/20 06/13/20 06/13/20 12:28 17:55 21:17 WBC RBC Hgb Hct MCHC RDW Lymph % (Auto) [place] % (Auto) Eos % (Auto) Lymph # [place] # Lymph # (Auto) [place] # (Auto) Eos # (Auto) Seg Neutrophils % Seg Neuts % (Manual) Lymphocytes % (Manual) Seg Neutrophils # Seg Neutrophils # Man Lymphocytes # (Manual) Monocytes % (Manual) Eosinophils % (Manual) Monocytes # (Manual) Eosinophils # (Manual) D-Dimer Heparin Anti-Xa Level ABG pH POC ABG pCO2 POC ABG pO2 ABG pO2 ABG HCO3 ABG O2 Saturation ABG Base Excess ABG Hemoglobin ABG Oxyhemoglobin VBG pH ABG Sodium ABG Potassium ABG Glucose Oxyhemoglobin Sodium Potassium Chloride Carbon Dioxide BUN 61 H Creatinine Glucose 131 H POC Glucose 165 H 174 H Lactic Acid Calcium Ferritin AST Alkaline Phosphatase Magnesium Lactate Dehydrogenase Total Creatine Kinase CK-MB (CK-2) C-Reactive Protein Total Protein Albumin Troponin T HDL Cholesterol Arterial Blood Glucose Urine WBC (Auto) Urine Creatinine Urine Total Protein Phenytoin Coronavirus (PCR) Crossmatch 06/13/20 06/13/20 06/14/20 21:17 23:50 05:34 WBC RBC Hgb Hct MCHC RDW Lymph % (Auto) [place] % (Auto) Eos % (Auto) Lymph # [place] # Lymph # (Auto) [place] # (Auto) Eos # (Auto) Seg Neutrophils % Seg Neuts % (Manual) Lymphocytes % (Manual) Seg Neutrophils # Seg Neutrophils # Man Lymphocytes # (Manual) Monocytes % (Manual) Eosinophils % (Manual) Monocytes # (Manual) Eosinophils # (Manual) D-Dimer Heparin Anti-Xa Level 0.72 H ABG pH POC ABG pCO2 POC ABG pO2 ABG pO2 ABG HCO3 ABG O2 Saturation ABG Base Excess ABG Hemoglobin ABG Oxyhemoglobin VBG pH ABG Sodium ABG Potassium ABG Glucose Oxyhemoglobin Sodium 146 H Potassium Chloride 107.6 H Carbon Dioxide BUN 61 H Creatinine 1.3 H Glucose 135 H POC Glucose 146 H Lactic Acid Calcium Ferritin AST Alkaline Phosphatase Magnesium Lactate Dehydrogenase Total Creatine Kinase CK-MB (CK-2) C-Reactive Protein Total Protein Albumin Troponin T HDL Cholesterol Arterial Blood Glucose Urine WBC (Auto) Urine Creatinine Urine Total Protein Phenytoin Coronavirus (PCR) Crossmatch 06/14/20 06/14/20 06/14/20 06:11 09:28 11:30 WBC RBC Hgb Hct MCHC RDW Lymph % (Auto) [place] % (Auto) Eos % (Auto) Lymph # [place] # Lymph # (Auto) [place] # (Auto) Eos # (Auto) Seg Neutrophils % Seg Neuts % (Manual) Lymphocytes % (Manual) Seg Neutrophils # Seg Neutrophils # Man Lymphocytes # (Manual) Monocytes % (Manual) Eosinophils % (Manual) Monocytes # (Manual) Eosinophils # (Manual) D-Dimer Heparin Anti-Xa Level 0.90 H ABG pH POC ABG pCO2 POC ABG pO2 ABG pO2 ABG HCO3 ABG O2 Saturation ABG Base Excess ABG Hemoglobin ABG Oxyhemoglobin VBG pH ABG Sodium ABG Potassium ABG Glucose Oxyhemoglobin Sodium Potassium Chloride Carbon Dioxide BUN Creatinine Glucose POC Glucose 141 H 186 H Lactic Acid Calcium Ferritin AST Alkaline Phosphatase Magnesium Lactate Dehydrogenase Total Creatine Kinase CK-MB (CK-2) C-Reactive Protein Total Protein Albumin Troponin T HDL Cholesterol Arterial Blood Glucose Urine WBC (Auto) Urine Creatinine Urine Total Protein Phenytoin Coronavirus (PCR) Crossmatch 06/14/20 06/14/20 06/14/20 16:07 18:16 23:51 WBC RBC Hgb Hct MCHC RDW Lymph % (Auto) [place] % (Auto) Eos % (Auto) Lymph # [place] # Lymph # (Auto) [place] # (Auto) Eos # (Auto) Seg Neutrophils % Seg Neuts % (Manual) Lymphocytes % (Manual) Seg Neutrophils # Seg Neutrophils # Man Lymphocytes # (Manual) Monocytes % (Manual) Eosinophils % (Manual) Monocytes # (Manual) Eosinophils # (Manual) D-Dimer Heparin Anti-Xa Level 0.82 H ABG pH POC ABG pCO2 POC ABG pO2 ABG pO2 ABG HCO3 ABG O2 Saturation ABG Base Excess ABG Hemoglobin ABG Oxyhemoglobin VBG pH ABG Sodium ABG Potassium ABG Glucose Oxyhemoglobin Sodium Potassium Chloride Carbon Dioxide BUN Creatinine Glucose POC Glucose 106 H 154 H Lactic Acid Calcium Ferritin AST Alkaline Phosphatase Magnesium Lactate Dehydrogenase Total Creatine Kinase CK-MB (CK-2) C-Reactive Protein Total Protein Albumin Troponin T HDL Cholesterol Arterial Blood Glucose Urine WBC (Auto) Urine Creatinine Urine Total Protein Phenytoin Coronavirus (PCR) Crossmatch 06/15/20 06/15/20 06/15/20 04:24 04:24 05:59 WBC RBC 2.75 L Hgb 7.9 L Hct 24.0 L MCHC RDW 16.4 H Lymph % (Auto) 12.9 L [place] % (Auto) 8.7 H Eos % (Auto) 4.6 H Lymph # 1.1 L [place] # Lymph # (Auto) [place] # (Auto) Eos # (Auto) Seg Neutrophils % 73.2 H Seg Neuts % (Manual) Lymphocytes % (Manual) Seg Neutrophils # Seg Neutrophils # Man Lymphocytes # (Manual) Monocytes % (Manual) Eosinophils % (Manual) Monocytes # (Manual) Eosinophils # (Manual) D-Dimer Heparin Anti-Xa Level ABG pH POC ABG pCO2 POC ABG pO2 ABG pO2 ABG HCO3 ABG O2 Saturation ABG Base Excess ABG Hemoglobin ABG Oxyhemoglobin VBG pH ABG Sodium ABG Potassium ABG Glucose Oxyhemoglobin Sodium Potassium 3.4 L Chloride Carbon Dioxide BUN 55 H Creatinine 1.3 H Glucose 142 H POC Glucose 131 H Lactic Acid Calcium Ferritin AST Alkaline Phosphatase Magnesium Lactate Dehydrogenase Total Creatine Kinase CK-MB (CK-2) C-Reactive Protein Total Protein Albumin Troponin T HDL Cholesterol Arterial Blood Glucose Urine WBC (Auto) Urine Creatinine Urine Total Protein Phenytoin Coronavirus (PCR) Crossmatch 06/15/20 06/15/20 06/16/20 12:33 17:07 00:22 WBC RBC Hgb Hct MCHC RDW Lymph % (Auto) [place] % (Auto) Eos % (Auto) Lymph # [place] # Lymph # (Auto) [place] # (Auto) Eos # (Auto) Seg Neutrophils % Seg Neuts % (Manual) Lymphocytes % (Manual) Seg Neutrophils # Seg Neutrophils # Man Lymphocytes # (Manual) Monocytes % (Manual) Eosinophils % (Manual) Monocytes # (Manual) Eosinophils # (Manual) D-Dimer Heparin Anti-Xa Level 0.21 L ABG pH POC ABG pCO2 POC ABG pO2 ABG pO2 ABG HCO3 ABG O2 Saturation ABG Base Excess ABG Hemoglobin ABG Oxyhemoglobin VBG pH ABG Sodium ABG Potassium ABG Glucose Oxyhemoglobin Sodium Potassium Chloride Carbon Dioxide BUN Creatinine Glucose POC Glucose 180 H 185 H Lactic Acid Calcium Ferritin AST Alkaline Phosphatase Magnesium Lactate Dehydrogenase Total Creatine Kinase CK-MB (CK-2) C-Reactive Protein Total Protein Albumin Troponin T HDL Cholesterol Arterial Blood Glucose Urine WBC (Auto) Urine Creatinine Urine Total Protein Phenytoin Coronavirus (PCR) Crossmatch 06/16/20 06/16/20 06/16/20 01:45 08:06 09:15 WBC RBC Hgb Hct MCHC RDW Lymph % (Auto) [place] % (Auto) Eos % (Auto) Lymph # [place] # Lymph # (Auto) [place] # (Auto) Eos # (Auto) Seg Neutrophils % Seg Neuts % (Manual) Lymphocytes % (Manual) Seg Neutrophils # Seg Neutrophils # Man Lymphocytes # (Manual) Monocytes % (Manual) Eosinophils % (Manual) Monocytes # (Manual) Eosinophils # (Manual) D-Dimer Heparin Anti-Xa Level ABG pH POC ABG pCO2 POC ABG pO2 ABG pO2 ABG HCO3 ABG O2 Saturation ABG Base Excess ABG Hemoglobin ABG Oxyhemoglobin VBG pH ABG Sodium ABG Potassium ABG Glucose Oxyhemoglobin Sodium Potassium Chloride Carbon Dioxide BUN 49 H Creatinine Glucose 154 H POC Glucose 140 H 171 H Lactic Acid Calcium Ferritin AST Alkaline Phosphatase Magnesium Lactate Dehydrogenase Total Creatine Kinase CK-MB (CK-2) C-Reactive Protein Total Protein Albumin Troponin T HDL Cholesterol Arterial Blood Glucose Urine WBC (Auto) Urine Creatinine Urine Total Protein Phenytoin Coronavirus (PCR) Crossmatch 06/16/20 06/16/20 06/16/20 10:46 12:33 17:54 WBC RBC Hgb Hct MCHC RDW Lymph % (Auto) [place] % (Auto) Eos % (Auto) Lymph # [place] # Lymph # (Auto) [place] # (Auto) Eos # (Auto) Seg Neutrophils % Seg Neuts % (Manual) Lymphocytes % (Manual) Seg Neutrophils # Seg Neutrophils # Man Lymphocytes # (Manual) Monocytes % (Manual) Eosinophils % (Manual) Monocytes # (Manual) Eosinophils # (Manual) D-Dimer Heparin Anti-Xa Level 0.12 L ABG pH POC ABG pCO2 POC ABG pO2 ABG pO2 ABG HCO3 ABG O2 Saturation ABG Base Excess ABG Hemoglobin ABG Oxyhemoglobin VBG pH ABG Sodium ABG Potassium ABG Glucose Oxyhemoglobin Sodium Potassium Chloride Carbon Dioxide BUN Creatinine Glucose POC Glucose 166 H 151 H Lactic Acid Calcium Ferritin AST Alkaline Phosphatase Magnesium Lactate Dehydrogenase Total Creatine Kinase CK-MB (CK-2) C-Reactive Protein Total Protein Albumin Troponin T HDL Cholesterol Arterial Blood Glucose Urine WBC (Auto) Urine Creatinine Urine Total Protein Phenytoin Coronavirus (PCR) Crossmatch 06/16/20 06/17/20 06/17/20 18:47 00:00 02:19 WBC RBC Hgb Hct MCHC RDW Lymph % (Auto) [place] % (Auto) Eos % (Auto) Lymph # [place] # Lymph # (Auto) [place] # (Auto) Eos # (Auto) Seg Neutrophils % Seg Neuts % (Manual) Lymphocytes % (Manual) Seg Neutrophils # Seg Neutrophils # Man Lymphocytes # (Manual) Monocytes % (Manual) Eosinophils % (Manual) Monocytes # (Manual) Eosinophils # (Manual) D-Dimer Heparin Anti-Xa Level 0.73 H 0.77 H ABG pH POC ABG pCO2 POC ABG pO2 ABG pO2 ABG HCO3 ABG O2 Saturation ABG Base Excess ABG Hemoglobin ABG Oxyhemoglobin VBG pH ABG Sodium ABG Potassium ABG Glucose Oxyhemoglobin Sodium Potassium Chloride Carbon Dioxide BUN Creatinine Glucose POC Glucose 139 H Lactic Acid Calcium Ferritin AST Alkaline Phosphatase Magnesium Lactate Dehydrogenase Total Creatine Kinase CK-MB (CK-2) C-Reactive Protein Total Protein Albumin Troponin T HDL Cholesterol Arterial Blood Glucose Urine WBC (Auto) Urine Creatinine Urine Total Protein Phenytoin Coronavirus (PCR) Crossmatch 06/17/20 06/17/20 06/17/20 06:07 11:42 16:43 WBC RBC Hgb Hct MCHC RDW Lymph % (Auto) [place] % (Auto) Eos % (Auto) Lymph # [place] # Lymph # (Auto) [place] # (Auto) Eos # (Auto) Seg Neutrophils % Seg Neuts % (Manual) Lymphocytes % (Manual) Seg Neutrophils # Seg Neutrophils # Man Lymphocytes # (Manual) Monocytes % (Manual) Eosinophils % (Manual) Monocytes # (Manual) Eosinophils # (Manual) D-Dimer Heparin Anti-Xa Level 0.73 H ABG pH POC ABG pCO2 POC ABG pO2 ABG pO2 ABG HCO3 ABG O2 Saturation ABG Base Excess ABG Hemoglobin ABG Oxyhemoglobin VBG pH ABG Sodium ABG Potassium ABG Glucose Oxyhemoglobin Sodium Potassium Chloride Carbon Dioxide BUN Creatinine Glucose POC Glucose 169 H 169 H Lactic Acid Calcium Ferritin AST Alkaline Phosphatase Magnesium Lactate Dehydrogenase Total Creatine Kinase CK-MB (CK-2) C-Reactive Protein Total Protein Albumin Troponin T HDL Cholesterol Arterial Blood Glucose Urine WBC (Auto) Urine Creatinine Urine Total Protein Phenytoin Coronavirus (PCR) Crossmatch 06/17/20 06/17/20 06/17/20 18:18 23:08 23:16 WBC RBC Hgb Hct MCHC RDW Lymph % (Auto) [place] % (Auto) Eos % (Auto) Lymph # [place] # Lymph # (Auto) [place] # (Auto) Eos # (Auto) Seg Neutrophils % Seg Neuts % (Manual) Lymphocytes % (Manual) Seg Neutrophils # Seg Neutrophils # Man Lymphocytes # (Manual) Monocytes % (Manual) Eosinophils % (Manual) Monocytes # (Manual) Eosinophils # (Manual) D-Dimer Heparin Anti-Xa Level 0.71 H ABG pH POC ABG pCO2 POC ABG pO2 ABG pO2 ABG HCO3 ABG O2 Saturation ABG Base Excess ABG Hemoglobin ABG Oxyhemoglobin VBG pH ABG Sodium ABG Potassium ABG Glucose Oxyhemoglobin Sodium Potassium Chloride Carbon Dioxide BUN Creatinine Glucose POC Glucose 159 H 134 H Lactic Acid Calcium Ferritin AST Alkaline Phosphatase Magnesium Lactate Dehydrogenase Total Creatine Kinase CK-MB (CK-2) C-Reactive Protein Total Protein Albumin Troponin T HDL Cholesterol Arterial Blood Glucose Urine WBC (Auto) Urine Creatinine Urine Total Protein Phenytoin Coronavirus (PCR) Crossmatch 06/18/20 06/18/20 06/18/20 04:42 05:52 11:50 WBC RBC Hgb Hct MCHC RDW Lymph % (Auto) [place] % (Auto) Eos % (Auto) Lymph # [place] # Lymph # (Auto) [place] # (Auto) Eos # (Auto) Seg Neutrophils % Seg Neuts % (Manual) Lymphocytes % (Manual) Seg Neutrophils # Seg Neutrophils # Man Lymphocytes # (Manual) Monocytes % (Manual) Eosinophils % (Manual) Monocytes # (Manual) Eosinophils # (Manual) D-Dimer Heparin Anti-Xa Level ABG pH POC ABG pCO2 POC ABG pO2 ABG pO2 ABG HCO3 ABG O2 Saturation ABG Base Excess ABG Hemoglobin ABG Oxyhemoglobin VBG pH ABG Sodium ABG Potassium ABG Glucose Oxyhemoglobin Sodium Potassium Chloride Carbon Dioxide BUN 44 H Creatinine Glucose 115 H POC Glucose 171 H 167 H Lactic Acid Calcium Ferritin AST Alkaline Phosphatase Magnesium Lactate Dehydrogenase Total Creatine Kinase CK-MB (CK-2) C-Reactive Protein Total Protein Albumin Troponin T HDL Cholesterol Arterial Blood Glucose Urine WBC (Auto) Urine Creatinine Urine Total Protein Phenytoin Coronavirus (PCR) Crossmatch 06/18/20 06/19/20 06/19/20 23:46 05:48 07:52 WBC RBC Hgb Hct MCHC RDW Lymph % (Auto) [place] % (Auto) Eos % (Auto) Lymph # [place] # Lymph # (Auto) [place] # (Auto) Eos # (Auto) Seg Neutrophils % Seg Neuts % (Manual) Lymphocytes % (Manual) Seg Neutrophils # Seg Neutrophils # Man Lymphocytes # (Manual) Monocytes % (Manual) Eosinophils % (Manual) Monocytes # (Manual) Eosinophils # (Manual) D-Dimer Heparin Anti-Xa Level ABG pH POC ABG pCO2 POC ABG pO2 ABG pO2 ABG HCO3 ABG O2 Saturation ABG Base Excess ABG Hemoglobin ABG Oxyhemoglobin VBG pH ABG Sodium ABG Potassium ABG Glucose Oxyhemoglobin Sodium Potassium Chloride Carbon Dioxide BUN Creatinine Glucose POC Glucose 130 H 207 H 175 H Lactic Acid Calcium Ferritin AST Alkaline Phosphatase Magnesium Lactate Dehydrogenase Total Creatine Kinase CK-MB (CK-2) C-Reactive Protein Total Protein Albumin Troponin T HDL Cholesterol Arterial Blood Glucose Urine WBC (Auto) Urine Creatinine Urine Total Protein Phenytoin Coronavirus (PCR) Crossmatch 06/19/20 06/19/20 06/20/20 11:42 22:54 05:17 WBC RBC Hgb Hct MCHC RDW Lymph % (Auto) [place] % (Auto) Eos % (Auto) Lymph # [place] # Lymph # (Auto) [place] # (Auto) Eos # (Auto) Seg Neutrophils % Seg Neuts % (Manual) Lymphocytes % (Manual) Seg Neutrophils # Seg Neutrophils # Man Lymphocytes # (Manual) Monocytes % (Manual) Eosinophils % (Manual) Monocytes # (Manual) Eosinophils # (Manual) D-Dimer Heparin Anti-Xa Level ABG pH POC ABG pCO2 POC ABG pO2 ABG pO2 ABG HCO3 ABG O2 Saturation ABG Base Excess ABG Hemoglobin ABG Oxyhemoglobin VBG pH ABG Sodium ABG Potassium ABG Glucose Oxyhemoglobin Sodium Potassium Chloride Carbon Dioxide BUN Creatinine Glucose POC Glucose 166 H 135 H 218 H Lactic Acid Calcium Ferritin AST Alkaline Phosphatase Magnesium Lactate Dehydrogenase Total Creatine Kinase CK-MB (CK-2) C-Reactive Protein Total Protein Albumin Troponin T HDL Cholesterol Arterial Blood Glucose Urine WBC (Auto) Urine Creatinine Urine Total Protein Phenytoin Coronavirus (PCR) Crossmatch 06/20/20 06/20/20 06/20/20 12:04 16:25 16:35 WBC RBC Hgb Hct MCHC RDW Lymph % (Auto) [place] % (Auto) Eos % (Auto) Lymph # [place] # Lymph # (Auto) [place] # (Auto) Eos # (Auto) Seg Neutrophils % Seg Neuts % (Manual) Lymphocytes % (Manual) Seg Neutrophils # Seg Neutrophils # Man Lymphocytes # (Manual) Monocytes % (Manual) Eosinophils % (Manual) Monocytes # (Manual) Eosinophils # (Manual) D-Dimer Heparin Anti-Xa Level ABG pH POC ABG pCO2 POC ABG pO2 ABG pO2 59.6 L ABG HCO3 28.7 H ABG O2 Saturation 93.5 L ABG Base Excess 3.4 H ABG Hemoglobin 7.2 L ABG Oxyhemoglobin VBG pH ABG Sodium ABG Potassium ABG Glucose Oxyhemoglobin 91.3 L Sodium Potassium Chloride Carbon Dioxide BUN Creatinine Glucose POC Glucose 194 H 137 H Lactic Acid Calcium Ferritin AST Alkaline Phosphatase Magnesium Lactate Dehydrogenase Total Creatine Kinase CK-MB (CK-2) C-Reactive Protein Total Protein Albumin Troponin T HDL Cholesterol Arterial Blood Glucose Urine WBC (Auto) Urine Creatinine Urine Total Protein Phenytoin Coronavirus (PCR) Crossmatch 06/20/20 06/21/20 06/21/20 23:59 06:25 12:01 WBC RBC Hgb Hct MCHC RDW Lymph % (Auto) [place] % (Auto) Eos % (Auto) Lymph # [place] # Lymph # (Auto) [place] # (Auto) Eos # (Auto) Seg Neutrophils % Seg Neuts % (Manual) Lymphocytes % (Manual) Seg Neutrophils # Seg Neutrophils # Man Lymphocytes # (Manual) Monocytes % (Manual) Eosinophils % (Manual) Monocytes # (Manual) Eosinophils # (Manual) D-Dimer Heparin Anti-Xa Level ABG pH POC ABG pCO2 POC ABG pO2 ABG pO2 ABG HCO3 ABG O2 Saturation ABG Base Excess ABG Hemoglobin ABG Oxyhemoglobin VBG pH ABG Sodium ABG Potassium ABG Glucose Oxyhemoglobin Sodium Potassium Chloride Carbon Dioxide BUN Creatinine Glucose POC Glucose 156 H 177 H 195 H Lactic Acid Calcium Ferritin AST Alkaline Phosphatase Magnesium Lactate Dehydrogenase Total Creatine Kinase CK-MB (CK-2) C-Reactive Protein Total Protein Albumin Troponin T HDL Cholesterol Arterial Blood Glucose Urine WBC (Auto) Urine Creatinine Urine Total Protein Phenytoin Coronavirus (PCR) Crossmatch 06/21/20 06/21/20 06/22/20 17:04 21:51 05:06 WBC RBC Hgb Hct MCHC RDW Lymph % (Auto) [place] % (Auto) Eos % (Auto) Lymph # [place] # Lymph # (Auto) [place] # (Auto) Eos # (Auto) Seg Neutrophils % Seg Neuts % (Manual) Lymphocytes % (Manual) Seg Neutrophils # Seg Neutrophils # Man Lymphocytes # (Manual) Monocytes % (Manual) Eosinophils % (Manual) Monocytes # (Manual) Eosinophils # (Manual) D-Dimer Heparin Anti-Xa Level ABG pH POC ABG pCO2 POC ABG pO2 ABG pO2 ABG HCO3 ABG O2 Saturation ABG Base Excess ABG Hemoglobin ABG Oxyhemoglobin VBG pH ABG Sodium ABG Potassium ABG Glucose Oxyhemoglobin Sodium Potassium Chloride Carbon Dioxide BUN Creatinine Glucose POC Glucose 156 H 154 H 167 H Lactic Acid Calcium Ferritin AST Alkaline Phosphatase Magnesium Lactate Dehydrogenase Total Creatine Kinase CK-MB (CK-2) C-Reactive Protein Total Protein Albumin Troponin T HDL Cholesterol Arterial Blood Glucose Urine WBC (Auto) Urine Creatinine Urine Total Protein Phenytoin Coronavirus (PCR) Crossmatch 06/22/20 06/22/20 06/22/20 11:20 15:27 16:58 WBC RBC Hgb Hct MCHC RDW Lymph % (Auto) [place] % (Auto) Eos % (Auto) Lymph # [place] # Lymph # (Auto) [place] # (Auto) Eos # (Auto) Seg Neutrophils % Seg Neuts % (Manual) Lymphocytes % (Manual) Seg Neutrophils # Seg Neutrophils # Man Lymphocytes # (Manual) Monocytes % (Manual) Eosinophils % (Manual) Monocytes # (Manual) Eosinophils # (Manual) D-Dimer Heparin Anti-Xa Level ABG pH 7.206 L POC ABG pCO2 79.9 H POC ABG pO2 ABG pO2 ABG HCO3 ABG O2 Saturation ABG Base Excess ABG Hemoglobin 8.3 L ABG Oxyhemoglobin VBG pH ABG Sodium ABG Potassium ABG Glucose Oxyhemoglobin Sodium Potassium Chloride Carbon Dioxide BUN Creatinine Glucose POC Glucose 181 H 230 H Lactic Acid Calcium Ferritin AST Alkaline Phosphatase Magnesium Lactate Dehydrogenase Total Creatine Kinase CK-MB (CK-2) C-Reactive Protein Total Protein Albumin Troponin T HDL Cholesterol Arterial Blood Glucose Urine WBC (Auto) Urine Creatinine Urine Total Protein Phenytoin Coronavirus (PCR) Crossmatch 06/22/20 06/23/20 06/23/20 22:26 05:49 05:49 WBC RBC 2.58 L Hgb 7.4 L Hct 23.2 L MCHC RDW 17.0 H Lymph % (Auto) [place] % (Auto) 11.2 H Eos % (Auto) Lymph # 1.0 L [place] # Lymph # (Auto) [place] # (Auto) Eos # (Auto) Seg Neutrophils % Seg Neuts % (Manual) Lymphocytes % (Manual) Seg Neutrophils # Seg Neutrophils # Man Lymphocytes # (Manual) Monocytes % (Manual) Eosinophils % (Manual) Monocytes # (Manual) Eosinophils # (Manual) D-Dimer Heparin Anti-Xa Level ABG pH POC ABG pCO2 POC ABG pO2 ABG pO2 ABG HCO3 ABG O2 Saturation ABG Base Excess ABG Hemoglobin ABG Oxyhemoglobin VBG pH ABG Sodium ABG Potassium ABG Glucose Oxyhemoglobin Sodium Potassium Chloride Carbon Dioxide BUN 68 H Creatinine 2.4 H Glucose 198 H POC Glucose 195 H Lactic Acid Calcium Ferritin AST Alkaline Phosphatase Magnesium Lactate Dehydrogenase Total Creatine Kinase CK-MB (CK-2) C-Reactive Protein Total Protein Albumin Troponin T HDL Cholesterol Arterial Blood Glucose Urine WBC (Auto) Urine Creatinine Urine Total Protein Phenytoin Coronavirus (PCR) Crossmatch 06/23/20 06/23/20 06/23/20 05:50 12:29 12:34 WBC RBC Hgb Hct MCHC RDW Lymph % (Auto) [place] % (Auto) Eos % (Auto) Lymph # [place] # Lymph # (Auto) [place] # (Auto) Eos # (Auto) Seg Neutrophils % Seg Neuts % (Manual) Lymphocytes % (Manual) Seg Neutrophils # Seg Neutrophils # Man Lymphocytes # (Manual) Monocytes % (Manual) Eosinophils % (Manual) Monocytes # (Manual) Eosinophils # (Manual) D-Dimer Heparin Anti-Xa Level ABG pH POC ABG pCO2 54.7 H POC ABG pO2 68.8 L ABG pO2 ABG HCO3 ABG O2 Saturation ABG Base Excess ABG Hemoglobin 9.8 L ABG Oxyhemoglobin 92.6 L VBG pH ABG Sodium ABG Potassium ABG Glucose Oxyhemoglobin Sodium Potassium Chloride Carbon Dioxide BUN Creatinine Glucose POC Glucose 202 H 218 H Lactic Acid Calcium Ferritin AST Alkaline Phosphatase Magnesium Lactate Dehydrogenase Total Creatine Kinase CK-MB (CK-2) C-Reactive Protein Total Protein Albumin Troponin T HDL Cholesterol Arterial Blood Glucose Urine WBC (Auto) Urine Creatinine Urine Total Protein Phenytoin Coronavirus (PCR) Crossmatch 06/23/20 06/23/20 06/24/20 16:02 22:22 01:06 WBC RBC Hgb Hct MCHC RDW Lymph % (Auto) [place] % (Auto) Eos % (Auto) Lymph # [place] # Lymph # (Auto) [place] # (Auto) Eos # (Auto) Seg Neutrophils % Seg Neuts % (Manual) Lymphocytes % (Manual) Seg Neutrophils # Seg Neutrophils # Man Lymphocytes # (Manual) Monocytes % (Manual) Eosinophils % (Manual) Monocytes # (Manual) Eosinophils # (Manual) D-Dimer Heparin Anti-Xa Level ABG pH POC ABG pCO2 POC ABG pO2 ABG pO2 ABG HCO3 ABG O2 Saturation ABG Base Excess ABG Hemoglobin ABG Oxyhemoglobin VBG pH ABG Sodium ABG Potassium ABG Glucose Oxyhemoglobin Sodium Potassium Chloride Carbon Dioxide BUN Creatinine Glucose POC Glucose 190 H 166 H 171 H Lactic Acid Calcium Ferritin AST Alkaline Phosphatase Magnesium Lactate Dehydrogenase Total Creatine Kinase CK-MB (CK-2) C-Reactive Protein Total Protein Albumin Troponin T HDL Cholesterol Arterial Blood Glucose Urine WBC (Auto) Urine Creatinine Urine Total Protein Phenytoin Coronavirus (PCR) Crossmatch 06/24/20 06/24/20 06/24/20 04:48 05:35 11:48 WBC RBC Hgb Hct MCHC RDW Lymph % (Auto) [place] % (Auto) Eos % (Auto) Lymph # [place] # Lymph # (Auto) [place] # (Auto) Eos # (Auto) Seg Neutrophils % Seg Neuts % (Manual) Lymphocytes % (Manual) Seg Neutrophils # Seg Neutrophils # Man Lymphocytes # (Manual) Monocytes % (Manual) Eosinophils % (Manual) Monocytes # (Manual) Eosinophils # (Manual) D-Dimer Heparin Anti-Xa Level ABG pH POC ABG pCO2 POC ABG pO2 ABG pO2 ABG HCO3 ABG O2 Saturation ABG Base Excess ABG Hemoglobin ABG Oxyhemoglobin VBG pH ABG Sodium ABG Potassium ABG Glucose Oxyhemoglobin Sodium Potassium Chloride Carbon Dioxide BUN 75 H Creatinine 2.6 H Glucose 179 H POC Glucose 172 H 153 H Lactic Acid Calcium Ferritin AST Alkaline Phosphatase Magnesium Lactate Dehydrogenase Total Creatine Kinase CK-MB (CK-2) C-Reactive Protein Total Protein Albumin Troponin T HDL Cholesterol Arterial Blood Glucose Urine WBC (Auto) Urine Creatinine Urine Total Protein Phenytoin Coronavirus (PCR) Crossmatch 06/24/20 06/24/20 06/25/20 16:38 21:52 12:00 WBC RBC Hgb Hct MCHC RDW Lymph % (Auto) [place] % (Auto) Eos % (Auto) Lymph # [place] # Lymph # (Auto) [place] # (Auto) Eos # (Auto) Seg Neutrophils % Seg Neuts % (Manual) Lymphocytes % (Manual) Seg Neutrophils # Seg Neutrophils # Man Lymphocytes # (Manual) Monocytes % (Manual) Eosinophils % (Manual) Monocytes # (Manual) Eosinophils # (Manual) D-Dimer Heparin Anti-Xa Level ABG pH POC ABG pCO2 POC ABG pO2 ABG pO2 ABG HCO3 ABG O2 Saturation ABG Base Excess ABG Hemoglobin ABG Oxyhemoglobin VBG pH ABG Sodium ABG Potassium ABG Glucose Oxyhemoglobin Sodium Potassium Chloride Carbon Dioxide BUN Creatinine Glucose POC Glucose 123 H 115 H 203 H Lactic Acid Calcium Ferritin AST Alkaline Phosphatase Magnesium Lactate Dehydrogenase Total Creatine Kinase CK-MB (CK-2) C-Reactive Protein Total Protein Albumin Troponin T HDL Cholesterol Arterial Blood Glucose Urine WBC (Auto) Urine Creatinine Urine Total Protein Phenytoin Coronavirus (PCR) Crossmatch 06/25/20 06/25/20 06/25/20 15:43 16:37 23:02 WBC RBC Hgb Hct MCHC RDW Lymph % (Auto) [place] % (Auto) Eos % (Auto) Lymph # [place] # Lymph # (Auto) [place] # (Auto) Eos # (Auto) Seg Neutrophils % Seg Neuts % (Manual) Lymphocytes % (Manual) Seg Neutrophils # Seg Neutrophils # Man Lymphocytes # (Manual) Monocytes % (Manual) Eosinophils % (Manual) Monocytes # (Manual) Eosinophils # (Manual) D-Dimer Heparin Anti-Xa Level ABG pH POC ABG pCO2 POC ABG pO2 ABG pO2 ABG HCO3 ABG O2 Saturation ABG Base Excess ABG Hemoglobin ABG Oxyhemoglobin VBG pH ABG Sodium ABG Potassium ABG Glucose Oxyhemoglobin Sodium Potassium Chloride Carbon Dioxide BUN 71 H Creatinine 1.8 H Glucose 170 H POC Glucose 191 H 126 H Lactic Acid Calcium 8.2 L Ferritin AST Alkaline Phosphatase Magnesium Lactate Dehydrogenase Total Creatine Kinase CK-MB (CK-2) C-Reactive Protein Total Protein Albumin Troponin T HDL Cholesterol Arterial Blood Glucose Urine WBC (Auto) Urine Creatinine Urine Total Protein Phenytoin Coronavirus (PCR) Crossmatch 06/26/20 06/26/20 06/26/20 06:34 06:34 09:27 WBC RBC 2.41 L Hgb 6.9 L Hct 21.5 L MCHC RDW 16.7 H Lymph % (Auto) 10.9 L [place] % (Auto) 9.6 H Eos % (Auto) Lymph # 0.7 L [place] # Lymph # (Auto) [place] # (Auto) Eos # (Auto) Seg Neutrophils % 75.4 H Seg Neuts % (Manual) Lymphocytes % (Manual) Seg Neutrophils # Seg Neutrophils # Man Lymphocytes # (Manual) Monocytes % (Manual) Eosinophils % (Manual) Monocytes # (Manual) Eosinophils # (Manual) D-Dimer Heparin Anti-Xa Level ABG pH POC ABG pCO2 POC ABG pO2 ABG pO2 ABG HCO3 ABG O2 Saturation ABG Base Excess ABG Hemoglobin ABG Oxyhemoglobin VBG pH ABG Sodium ABG Potassium ABG Glucose Oxyhemoglobin Sodium Potassium Chloride Carbon Dioxide BUN 77 H Creatinine 1.9 H Glucose 190 H POC Glucose Lactic Acid Calcium Ferritin AST Alkaline Phosphatase Magnesium Lactate Dehydrogenase Total Creatine Kinase CK-MB (CK-2) C-Reactive Protein Total Protein Albumin Troponin T HDL Cholesterol Arterial Blood Glucose Urine WBC (Auto) Urine Creatinine Urine Total Protein Phenytoin Coronavirus (PCR) Crossmatch See Detail 06/26/20 06/26/20 06/26/20 12:15 16:28 17:28 WBC RBC Hgb Hct MCHC RDW Lymph % (Auto) [place] % (Auto) Eos % (Auto) Lymph # [place] # Lymph # (Auto) [place] # (Auto) Eos # (Auto) Seg Neutrophils % Seg Neuts % (Manual) Lymphocytes % (Manual) Seg Neutrophils # Seg Neutrophils # Man Lymphocytes # (Manual) Monocytes % (Manual) Eosinophils % (Manual) Monocytes # (Manual) Eosinophils # (Manual) D-Dimer Heparin Anti-Xa Level ABG pH POC ABG pCO2 POC ABG pO2 ABG pO2 ABG HCO3 ABG O2 Saturation ABG Base Excess ABG Hemoglobin ABG Oxyhemoglobin VBG pH ABG Sodium ABG Potassium ABG Glucose Oxyhemoglobin Sodium Potassium Chloride Carbon Dioxide BUN Creatinine Glucose POC Glucose 187 H 149 H 189 H Lactic Acid Calcium Ferritin AST Alkaline Phosphatase Magnesium Lactate Dehydrogenase Total Creatine Kinase CK-MB (CK-2) C-Reactive Protein Total Protein Albumin Troponin T HDL Cholesterol Arterial Blood Glucose Urine WBC (Auto) Urine Creatinine Urine Total Protein Phenytoin Coronavirus (PCR) Crossmatch 06/26/20 06/26/20 06/26/20 18:30 18:30 18:30 WBC RBC 2.87 L Hgb 8.2 L Hct 25.9 L MCHC RDW 17.8 H Lymph % (Auto) [place] % (Auto) Eos % (Auto) Lymph # [place] # Lymph # (Auto) [place] # (Auto) Eos # (Auto) Seg Neutrophils % Seg Neuts % (Manual) 83.0 H Lymphocytes % (Manual) 8.0 L Seg Neutrophils # Seg Neutrophils # Man Lymphocytes # (Manual) 0.6 L Monocytes % (Manual) Eosinophils % (Manual) Monocytes # (Manual) Eosinophils # (Manual) D-Dimer Heparin Anti-Xa Level ABG pH POC ABG pCO2 POC ABG pO2 ABG pO2 ABG HCO3 ABG O2 Saturation ABG Base Excess ABG Hemoglobin ABG Oxyhemoglobin VBG pH ABG Sodium ABG Potassium ABG Glucose Oxyhemoglobin Sodium Potassium Chloride Carbon Dioxide BUN 80 H Creatinine 2.1 H Glucose 260 H POC Glucose Lactic Acid 4.30 H* Calcium 8.3 L Ferritin AST Alkaline Phosphatase Magnesium Lactate Dehydrogenase Total Creatine Kinase CK-MB (CK-2) C-Reactive Protein Total Protein Albumin Troponin T HDL Cholesterol Arterial Blood Glucose Urine WBC (Auto) Urine Creatinine Urine Total Protein Phenytoin Coronavirus (PCR) Crossmatch 06/26/20 06/27/20 06/27/20 18:50 01:00 04:29 WBC RBC Hgb Hct MCHC RDW Lymph % (Auto) [place] % (Auto) Eos % (Auto) Lymph # [place] # Lymph # (Auto) [place] # (Auto) Eos # (Auto) Seg Neutrophils % Seg Neuts % (Manual) Lymphocytes % (Manual) Seg Neutrophils # Seg Neutrophils # Man Lymphocytes # (Manual) Monocytes % (Manual) Eosinophils % (Manual) Monocytes # (Manual) Eosinophils # (Manual) D-Dimer Heparin Anti-Xa Level ABG pH 7.296 L POC ABG pCO2 POC ABG pO2 ABG pO2 116.5 H 200.5 H ABG HCO3 28.4 H ABG O2 Saturation 99.3 H ABG Base Excess 3.7 H ABG Hemoglobin 5.6 L ABG Oxyhemoglobin VBG pH ABG Sodium ABG Potassium ABG Glucose Oxyhemoglobin Sodium Potassium Chloride Carbon Dioxide BUN Creatinine Glucose POC Glucose 123 H Lactic Acid Calcium Ferritin AST Alkaline Phosphatase Magnesium Lactate Dehydrogenase Total Creatine Kinase CK-MB (CK-2) C-Reactive Protein Total Protein Albumin Troponin T HDL Cholesterol Arterial Blood Glucose Urine WBC (Auto) Urine Creatinine Urine Total Protein Phenytoin Coronavirus (PCR) Crossmatch 06/27/20 06/27/20 06/27/20 05:00 05:00 05:00 WBC RBC 2.75 L Hgb 7.9 L Hct 24.3 L MCHC RDW 17.1 H Lymph % (Auto) 8.5 L [place] % (Auto) 12.6 H Eos % (Auto) Lymph # 0.7 L [place] # 1.0 H Lymph # (Auto) [place] # (Auto) Eos # (Auto) Seg Neutrophils % 77.5 H Seg Neuts % (Manual) Lymphocytes % (Manual) Seg Neutrophils # Seg Neutrophils # Man Lymphocytes # (Manual) Monocytes % (Manual) Eosinophils % (Manual) Monocytes # (Manual) Eosinophils # (Manual) D-Dimer Heparin Anti-Xa Level ABG pH POC ABG pCO2 POC ABG pO2 ABG pO2 ABG HCO3 ABG O2 Saturation ABG Base Excess ABG Hemoglobin ABG Oxyhemoglobin VBG pH ABG Sodium ABG Potassium ABG Glucose Oxyhemoglobin Sodium Potassium Chloride Carbon Dioxide BUN 80 H Creatinine 2.0 H Glucose 129 H POC Glucose Lactic Acid 0.60 L Calcium 7.9 L Ferritin AST Alkaline Phosphatase Magnesium Lactate Dehydrogenase Total Creatine Kinase CK-MB (CK-2) C-Reactive Protein Total Protein Albumin Troponin T HDL Cholesterol Arterial Blood Glucose Urine WBC (Auto) Urine Creatinine Urine Total Protein Phenytoin Coronavirus (PCR) Crossmatch 06/27/20 06/27/20 06/27/20 05:23 13:46 17:25 WBC RBC Hgb Hct MCHC RDW Lymph % (Auto) [place] % (Auto) Eos % (Auto) Lymph # [place] # Lymph # (Auto) [place] # (Auto) Eos # (Auto) Seg Neutrophils % Seg Neuts % (Manual) Lymphocytes % (Manual) Seg Neutrophils # Seg Neutrophils # Man Lymphocytes # (Manual) Monocytes % (Manual) Eosinophils % (Manual) Monocytes # (Manual) Eosinophils # (Manual) D-Dimer Heparin Anti-Xa Level ABG pH POC ABG pCO2 POC ABG pO2 ABG pO2 ABG HCO3 ABG O2 Saturation ABG Base Excess ABG Hemoglobin ABG Oxyhemoglobin VBG pH ABG Sodium ABG Potassium ABG Glucose Oxyhemoglobin Sodium Potassium Chloride Carbon Dioxide BUN Creatinine Glucose POC Glucose 109 H 158 H 162 H Lactic Acid Calcium Ferritin AST Alkaline Phosphatase Magnesium Lactate Dehydrogenase Total Creatine Kinase CK-MB (CK-2) C-Reactive Protein Total Protein Albumin Troponin T HDL Cholesterol Arterial Blood Glucose Urine WBC (Auto) Urine Creatinine Urine Total Protein Phenytoin Coronavirus (PCR) Crossmatch 06/27/20 06/27/20 06/28/20 18:43 23:46 04:05 WBC RBC Hgb 7.7 L Hct 22.1 L MCHC RDW Lymph % (Auto) [place] % (Auto) Eos % (Auto) Lymph # [place] # Lymph # (Auto) [place] # (Auto) Eos # (Auto) Seg Neutrophils % Seg Neuts % (Manual) Lymphocytes % (Manual) Seg Neutrophils # Seg Neutrophils # Man Lymphocytes # (Manual) Monocytes % (Manual) Eosinophils % (Manual) Monocytes # (Manual) Eosinophils # (Manual) D-Dimer Heparin Anti-Xa Level ABG pH POC ABG pCO2 POC ABG pO2 ABG pO2 102.7 H ABG HCO3 28.7 H ABG O2 Saturation ABG Base Excess 3.7 H ABG Hemoglobin ABG Oxyhemoglobin VBG pH ABG Sodium ABG Potassium ABG Glucose Oxyhemoglobin Sodium Potassium Chloride Carbon Dioxide BUN Creatinine Glucose POC Glucose 142 H Lactic Acid Calcium Ferritin AST Alkaline Phosphatase Magnesium Lactate Dehydrogenase Total Creatine Kinase CK-MB (CK-2) C-Reactive Protein Total Protein Albumin Troponin T HDL Cholesterol Arterial Blood Glucose Urine WBC (Auto) Urine Creatinine Urine Total Protein Phenytoin Coronavirus (PCR) Crossmatch 06/28/20 06/28/20 06/28/20 09:47 09:47 12:02 WBC RBC 2.53 L Hgb 7.4 L Hct 22.2 L MCHC RDW 16.8 H Lymph % (Auto) [place] % (Auto) 13.5 H Eos % (Auto) Lymph # 1.1 L [place] # 1.0 H Lymph # (Auto) [place] # (Auto) Eos # (Auto) Seg Neutrophils % Seg Neuts % (Manual) Lymphocytes % (Manual) Seg Neutrophils # Seg Neutrophils # Man Lymphocytes # (Manual) Monocytes % (Manual) Eosinophils % (Manual) Monocytes # (Manual) Eosinophils # (Manual) D-Dimer Heparin Anti-Xa Level ABG pH POC ABG pCO2 POC ABG pO2 ABG pO2 ABG HCO3 ABG O2 Saturation ABG Base Excess ABG Hemoglobin ABG Oxyhemoglobin VBG pH ABG Sodium ABG Potassium ABG Glucose Oxyhemoglobin Sodium Potassium Chloride Carbon Dioxide BUN 80 H Creatinine 1.5 H Glucose 139 H POC Glucose 169 H Lactic Acid Calcium 7.9 L Ferritin AST Alkaline Phosphatase Magnesium Lactate Dehydrogenase Total Creatine Kinase CK-MB (CK-2) C-Reactive Protein Total Protein 5.0 L Albumin 2.1 L Troponin T HDL Cholesterol Arterial Blood Glucose Urine WBC (Auto) Urine Creatinine Urine Total Protein Phenytoin Coronavirus (PCR) Crossmatch 06/28/20 06/28/20 06/28/20 12:30 12:30 17:24 WBC RBC 2.38 L Hgb 7.3 L Hct 20.9 L MCHC 35 H RDW 16.7 H Lymph % (Auto) [place] % (Auto) Eos % (Auto) Lymph # [place] # Lymph # (Auto) [place] # (Auto) Eos # (Auto) Seg Neutrophils % Seg Neuts % (Manual) Lymphocytes % (Manual) Seg Neutrophils # Seg Neutrophils # Man Lymphocytes # (Manual) Monocytes % (Manual) Eosinophils % (Manual) Monocytes # (Manual) Eosinophils # (Manual) D-Dimer Heparin Anti-Xa Level ABG pH POC ABG pCO2 POC ABG pO2 ABG pO2 ABG HCO3 ABG O2 Saturation ABG Base Excess ABG Hemoglobin ABG Oxyhemoglobin VBG pH ABG Sodium ABG Potassium ABG Glucose Oxyhemoglobin Sodium Potassium Chloride Carbon Dioxide BUN 74 H Creatinine 1.5 H Glucose 143 H POC Glucose 173 H Lactic Acid Calcium 7.5 L Ferritin AST Alkaline Phosphatase Magnesium Lactate Dehydrogenase Total Creatine Kinase CK-MB (CK-2) C-Reactive Protein Total Protein Albumin Troponin T HDL Cholesterol Arterial Blood Glucose Urine WBC (Auto) Urine Creatinine Urine Total Protein Phenytoin Coronavirus (PCR) Crossmatch 06/29/20 06/29/20 06/29/20 00:02 03:54 04:38 WBC RBC 2.55 L Hgb 7.3 L Hct 22.4 L MCHC RDW 16.4 H Lymph % (Auto) 13.3 L [place] % (Auto) 12.5 H Eos % (Auto) Lymph # 1.1 L [place] # 1.0 H Lymph # (Auto) [place] # (Auto) Eos # (Auto) Seg Neutrophils % Seg Neuts % (Manual) Lymphocytes % (Manual) Seg Neutrophils # Seg Neutrophils # Man Lymphocytes # (Manual) Monocytes % (Manual) Eosinophils % (Manual) Monocytes # (Manual) Eosinophils # (Manual) D-Dimer Heparin Anti-Xa Level ABG pH POC ABG pCO2 POC ABG pO2 ABG pO2 ABG HCO3 26.9 H ABG O2 Saturation ABG Base Excess ABG Hemoglobin 6.9 L ABG Oxyhemoglobin VBG pH ABG Sodium ABG Potassium ABG Glucose Oxyhemoglobin Sodium Potassium Chloride Carbon Dioxide BUN Creatinine Glucose POC Glucose 142 H Lactic Acid Calcium Ferritin AST Alkaline Phosphatase Magnesium Lactate Dehydrogenase Total Creatine Kinase CK-MB (CK-2) C-Reactive Protein Total Protein Albumin Troponin T HDL Cholesterol Arterial Blood Glucose Urine WBC (Auto) Urine Creatinine Urine Total Protein Phenytoin Coronavirus (PCR) Crossmatch 06/29/20 06/29/20 06/29/20 04:38 05:38 12:25 WBC RBC Hgb Hct MCHC RDW Lymph % (Auto) [place] % (Auto) Eos % (Auto) Lymph # [place] # Lymph # (Auto) [place] # (Auto) Eos # (Auto) Seg Neutrophils % Seg Neuts % (Manual) Lymphocytes % (Manual) Seg Neutrophils # Seg Neutrophils # Man Lymphocytes # (Manual) Monocytes % (Manual) Eosinophils % (Manual) Monocytes # (Manual) Eosinophils # (Manual) D-Dimer Heparin Anti-Xa Level ABG pH POC ABG pCO2 POC ABG pO2 ABG pO2 ABG HCO3 ABG O2 Saturation ABG Base Excess ABG Hemoglobin ABG Oxyhemoglobin VBG pH ABG Sodium ABG Potassium ABG Glucose Oxyhemoglobin Sodium Potassium Chloride 107.8 H Carbon Dioxide BUN 72 H Creatinine 1.4 H Glucose 127 H POC Glucose 122 H 138 H Lactic Acid Calcium 7.4 L Ferritin AST Alkaline Phosphatase Magnesium Lactate Dehydrogenase Total Creatine Kinase CK-MB (CK-2) C-Reactive Protein Total Protein Albumin Troponin T HDL Cholesterol Arterial Blood Glucose Urine WBC (Auto) Urine Creatinine Urine Total Protein Phenytoin Coronavirus (PCR) Crossmatch 06/29/20 06/29/20 06/29/20 14:45 14:45 14:45 WBC RBC Hgb Hct MCHC RDW Lymph % (Auto) [place] % (Auto) Eos % (Auto) Lymph # [place] # Lymph # (Auto) [place] # (Auto) Eos # (Auto) Seg Neutrophils % Seg Neuts % (Manual) Lymphocytes % (Manual) Seg Neutrophils # Seg Neutrophils # Man Lymphocytes # (Manual) Monocytes % (Manual) Eosinophils % (Manual) Monocytes # (Manual) Eosinophils # (Manual) D-Dimer 2310.15 H Heparin Anti-Xa Level ABG pH POC ABG pCO2 POC ABG pO2 ABG pO2 ABG HCO3 ABG O2 Saturation ABG Base Excess ABG Hemoglobin ABG Oxyhemoglobin VBG pH ABG Sodium ABG Potassium ABG Glucose Oxyhemoglobin Sodium Potassium Chloride Carbon Dioxide BUN Creatinine Glucose POC Glucose Lactic Acid Calcium Ferritin 223.6 H AST Alkaline Phosphatase Magnesium Lactate Dehydrogenase 367 H Total Creatine Kinase CK-MB (CK-2) C-Reactive Protein 3.60 H Total Protein Albumin Troponin T HDL Cholesterol Arterial Blood Glucose Urine WBC (Auto) Urine Creatinine Urine Total Protein Phenytoin Coronavirus (PCR) Crossmatch 06/29/20 06/29/20 06/29/20 18:27 23:35 Unknown WBC RBC Hgb Hct MCHC RDW Lymph % (Auto) [place] % (Auto) Eos % (Auto) Lymph # [place] # Lymph # (Auto) [place] # (Auto) Eos # (Auto) Seg Neutrophils % Seg Neuts % (Manual) Lymphocytes % (Manual) Seg Neutrophils # Seg Neutrophils # Man Lymphocytes # (Manual) Monocytes % (Manual) Eosinophils % (Manual) Monocytes # (Manual) Eosinophils # (Manual) D-Dimer Heparin Anti-Xa Level ABG pH POC ABG pCO2 POC ABG pO2 ABG pO2 ABG HCO3 ABG O2 Saturation ABG Base Excess ABG Hemoglobin ABG Oxyhemoglobin VBG pH ABG Sodium ABG Potassium ABG Glucose Oxyhemoglobin Sodium Potassium Chloride Carbon Dioxide BUN Creatinine Glucose POC Glucose 112 H 140 H Lactic Acid Calcium Ferritin AST Alkaline Phosphatase Magnesium Lactate Dehydrogenase Total Creatine Kinase CK-MB (CK-2) C-Reactive Protein Total Protein Albumin Troponin T HDL Cholesterol Arterial Blood Glucose Urine WBC (Auto) Urine Creatinine Urine Total Protein Phenytoin Coronavirus (PCR) Positive A Crossmatch 06/30/20 06/30/20 06/30/20 04:10 04:10 06:09 WBC RBC 2.44 L Hgb 7.1 L Hct 21.5 L MCHC RDW 16.6 H Lymph % (Auto) 11.0 L [place] % (Auto) 10.8 H Eos % (Auto) Lymph # 0.9 L [place] # 0.9 H Lymph # (Auto) [place] # (Auto) Eos # (Auto) Seg Neutrophils % 73.7 H Seg Neuts % (Manual) Lymphocytes % (Manual) Seg Neutrophils # Seg Neutrophils # Man Lymphocytes # (Manual) Monocytes % (Manual) Eosinophils % (Manual) Monocytes # (Manual) Eosinophils # (Manual) D-Dimer Heparin Anti-Xa Level ABG pH POC ABG pCO2 POC ABG pO2 ABG pO2 ABG HCO3 ABG O2 Saturation ABG Base Excess ABG Hemoglobin ABG Oxyhemoglobin VBG pH ABG Sodium ABG Potassium ABG Glucose Oxyhemoglobin Sodium Potassium Chloride 109.1 H Carbon Dioxide BUN 74 H Creatinine 1.3 H Glucose 191 H POC Glucose 187 H Lactic Acid Calcium 7.8 L Ferritin AST Alkaline Phosphatase Magnesium Lactate Dehydrogenase Total Creatine Kinase CK-MB (CK-2) C-Reactive Protein Total Protein Albumin Troponin T HDL Cholesterol Arterial Blood Glucose Urine WBC (Auto) Urine Creatinine Urine Total Protein Phenytoin Coronavirus (PCR) Crossmatch 06/30/20 06/30/20 06/30/20 12:04 17:43 23:41 WBC RBC Hgb Hct MCHC RDW Lymph % (Auto) [place] % (Auto) Eos % (Auto) Lymph # [place] # Lymph # (Auto) [place] # (Auto) Eos # (Auto) Seg Neutrophils % Seg Neuts % (Manual) Lymphocytes % (Manual) Seg Neutrophils # Seg Neutrophils # Man Lymphocytes # (Manual) Monocytes % (Manual) Eosinophils % (Manual) Monocytes # (Manual) Eosinophils # (Manual) D-Dimer Heparin Anti-Xa Level ABG pH POC ABG pCO2 POC ABG pO2 ABG pO2 ABG HCO3 ABG O2 Saturation ABG Base Excess ABG Hemoglobin ABG Oxyhemoglobin VBG pH ABG Sodium ABG Potassium ABG Glucose Oxyhemoglobin Sodium Potassium Chloride Carbon Dioxide BUN Creatinine Glucose POC Glucose 112 H 177 H 143 H Lactic Acid Calcium Ferritin AST Alkaline Phosphatase Magnesium Lactate Dehydrogenase Total Creatine Kinase CK-MB (CK-2) C-Reactive Protein Total Protein Albumin Troponin T HDL Cholesterol Arterial Blood Glucose Urine WBC (Auto) Urine Creatinine Urine Total Protein Phenytoin Coronavirus (PCR) Crossmatch 07/01/20 07/01/20 07/01/20 05:02 05:52 06:01 WBC 12.6 H RBC 2.95 L Hgb 8.2 L Hct 26.0 L MCHC RDW 16.9 H Lymph % (Auto) [place] % (Auto) Eos % (Auto) Lymph # [place] # Lymph # (Auto) [place] # (Auto) Eos # (Auto) Seg Neutrophils % Seg Neuts % (Manual) Lymphocytes % (Manual) Seg Neutrophils # Seg Neutrophils # Man 8.6 H Lymphocytes # (Manual) Monocytes % (Manual) Eosinophils % (Manual) 5.0 H Monocytes # (Manual) Eosinophils # (Manual) 0.6 H D-Dimer Heparin Anti-Xa Level ABG pH POC ABG pCO2 POC ABG pO2 ABG pO2 ABG HCO3 ABG O2 Saturation ABG Base Excess ABG Hemoglobin 8.2 L ABG Oxyhemoglobin VBG pH ABG Sodium ABG Potassium ABG Glucose Oxyhemoglobin Sodium Potassium Chloride Carbon Dioxide BUN Creatinine Glucose POC Glucose 129 H Lactic Acid Calcium Ferritin AST Alkaline Phosphatase Magnesium Lactate Dehydrogenase Total Creatine Kinase CK-MB (CK-2) C-Reactive Protein Total Protein Albumin Troponin T HDL Cholesterol Arterial Blood Glucose Urine WBC (Auto) Urine Creatinine Urine Total Protein Phenytoin Coronavirus (PCR) Crossmatch 07/01/20 07/01/20 07/01/20 06:01 06:01 06:08 WBC RBC Hgb Hct MCHC RDW Lymph % (Auto) [place] % (Auto) Eos % (Auto) Lymph # [place] # Lymph # (Auto) [place] # (Auto) Eos # (Auto) Seg Neutrophils % Seg Neuts % (Manual) Lymphocytes % (Manual) Seg Neutrophils # Seg Neutrophils # Man Lymphocytes # (Manual) Monocytes % (Manual) Eosinophils % (Manual) Monocytes # (Manual) Eosinophils # (Manual) D-Dimer Heparin Anti-Xa Level ABG pH POC ABG pCO2 POC ABG pO2 ABG pO2 ABG HCO3 ABG O2 Saturation ABG Base Excess ABG Hemoglobin ABG Oxyhemoglobin VBG pH ABG Sodium ABG Potassium ABG Glucose Oxyhemoglobin Sodium 147 H Potassium Chloride 108.0 H Carbon Dioxide BUN 71 H Creatinine 1.3 H Glucose 193 H POC Glucose 192 H Lactic Acid Calcium 8.1 L Ferritin AST Alkaline Phosphatase Magnesium Lactate Dehydrogenase Total Creatine Kinase 300 H CK-MB (CK-2) C-Reactive Protein Total Protein Albumin Troponin T 0.067 H HDL Cholesterol 61 H Arterial Blood Glucose Urine WBC (Auto) Urine Creatinine Urine Total Protein Phenytoin Coronavirus (PCR) Crossmatch 07/01/20 07/01/20 07/02/20 12:23 17:40 00:18 WBC RBC Hgb Hct MCHC RDW Lymph % (Auto) [place] % (Auto) Eos % (Auto) Lymph # [place] # Lymph # (Auto) [place] # (Auto) Eos # (Auto) Seg Neutrophils % Seg Neuts % (Manual) Lymphocytes % (Manual) Seg Neutrophils # Seg Neutrophils # Man Lymphocytes # (Manual) Monocytes % (Manual) Eosinophils % (Manual) Monocytes # (Manual) Eosinophils # (Manual) D-Dimer Heparin Anti-Xa Level ABG pH POC ABG pCO2 POC ABG pO2 ABG pO2 ABG HCO3 ABG O2 Saturation ABG Base Excess ABG Hemoglobin ABG Oxyhemoglobin VBG pH ABG Sodium ABG Potassium ABG Glucose Oxyhemoglobin Sodium Potassium Chloride Carbon Dioxide BUN Creatinine Glucose POC Glucose 111 H 135 H 145 H Lactic Acid Calcium Ferritin AST Alkaline Phosphatase Magnesium Lactate Dehydrogenase Total Creatine Kinase CK-MB (CK-2) C-Reactive Protein Total Protein Albumin Troponin T HDL Cholesterol Arterial Blood Glucose Urine WBC (Auto) Urine Creatinine Urine Total Protein Phenytoin Coronavirus (PCR) Crossmatch 07/02/20 07/02/20 07/02/20 04:11 04:23 05:54 WBC RBC Hgb Hct MCHC RDW Lymph % (Auto) [place] % (Auto) Eos % (Auto) Lymph # [place] # Lymph # (Auto) [place] # (Auto) Eos # (Auto) Seg Neutrophils % Seg Neuts % (Manual) Lymphocytes % (Manual) Seg Neutrophils # Seg Neutrophils # Man Lymphocytes # (Manual) Monocytes % (Manual) Eosinophils % (Manual) Monocytes # (Manual) Eosinophils # (Manual) D-Dimer Heparin Anti-Xa Level ABG pH POC ABG pCO2 POC ABG pO2 ABG pO2 ABG HCO3 ABG O2 Saturation ABG Base Excess ABG Hemoglobin 5.4 L ABG Oxyhemoglobin VBG pH ABG Sodium ABG Potassium ABG Glucose Oxyhemoglobin Sodium Potassium Chloride 108.6 H Carbon Dioxide BUN 72 H Creatinine Glucose 112 H POC Glucose 137 H Lactic Acid Calcium 7.8 L Ferritin AST Alkaline Phosphatase Magnesium Lactate Dehydrogenase Total Creatine Kinase CK-MB (CK-2) C-Reactive Protein Total Protein Albumin Troponin T HDL Cholesterol Arterial Blood Glucose Urine WBC (Auto) Urine Creatinine Urine Total Protein Phenytoin Coronavirus (PCR) Crossmatch 07/02/20 07/02/20 07/02/20 11:38 18:04 23:59 WBC RBC Hgb Hct MCHC RDW Lymph % (Auto) [place] % (Auto) Eos % (Auto) Lymph # [place] # Lymph # (Auto) [place] # (Auto) Eos # (Auto) Seg Neutrophils % Seg Neuts % (Manual) Lymphocytes % (Manual) Seg Neutrophils # Seg Neutrophils # Man Lymphocytes # (Manual) Monocytes % (Manual) Eosinophils % (Manual) Monocytes # (Manual) Eosinophils # (Manual) D-Dimer Heparin Anti-Xa Level ABG pH POC ABG pCO2 POC ABG pO2 ABG pO2 ABG HCO3 ABG O2 Saturation ABG Base Excess ABG Hemoglobin ABG Oxyhemoglobin VBG pH ABG Sodium ABG Potassium ABG Glucose Oxyhemoglobin Sodium Potassium Chloride Carbon Dioxide BUN Creatinine Glucose POC Glucose 128 H 135 H 156 H Lactic Acid Calcium Ferritin AST Alkaline Phosphatase Magnesium Lactate Dehydrogenase Total Creatine Kinase CK-MB (CK-2) C-Reactive Protein Total Protein Albumin Troponin T HDL Cholesterol Arterial Blood Glucose Urine WBC (Auto) Urine Creatinine Urine Total Protein Phenytoin Coronavirus (PCR) Crossmatch 07/03/20 07/03/20 07/03/20 03:49 06:00 11:31 WBC RBC Hgb Hct MCHC RDW Lymph % (Auto) [place] % (Auto) Eos % (Auto) Lymph # [place] # Lymph # (Auto) [place] # (Auto) Eos # (Auto) Seg Neutrophils % Seg Neuts % (Manual) Lymphocytes % (Manual) Seg Neutrophils # Seg Neutrophils # Man Lymphocytes # (Manual) Monocytes % (Manual) Eosinophils % (Manual) Monocytes # (Manual) Eosinophils # (Manual) D-Dimer Heparin Anti-Xa Level ABG pH POC ABG pCO2 POC ABG pO2 ABG pO2 121.0 H ABG HCO3 ABG O2 Saturation ABG Base Excess ABG Hemoglobin 8.5 L ABG Oxyhemoglobin VBG pH ABG Sodium ABG Potassium ABG Glucose Oxyhemoglobin Sodium Potassium Chloride Carbon Dioxide BUN Creatinine Glucose POC Glucose 135 H 141 H Lactic Acid Calcium Ferritin AST Alkaline Phosphatase Magnesium Lactate Dehydrogenase Total Creatine Kinase CK-MB (CK-2) C-Reactive Protein Total Protein Albumin Troponin T HDL Cholesterol Arterial Blood Glucose Urine WBC (Auto) Urine Creatinine Urine Total Protein Phenytoin Coronavirus (PCR) Crossmatch 07/03/20 07/03/20 07/03/20 16:00 16:07 17:40 WBC RBC Hgb Hct MCHC RDW Lymph % (Auto) [place] % (Auto) Eos % (Auto) Lymph # [place] # Lymph # (Auto) [place] # (Auto) Eos # (Auto) Seg Neutrophils % Seg Neuts % (Manual) Lymphocytes % (Manual) Seg Neutrophils # Seg Neutrophils # Man Lymphocytes # (Manual) Monocytes % (Manual) Eosinophils % (Manual) Monocytes # (Manual) Eosinophils # (Manual) D-Dimer Heparin Anti-Xa Level ABG pH 7.271 L POC ABG pCO2 POC ABG pO2 ABG pO2 126.9 H ABG HCO3 ABG O2 Saturation ABG Base Excess ABG Hemoglobin 8.2 L 8.1 L ABG Oxyhemoglobin VBG pH ABG Sodium 130.3 L ABG Potassium 4.9 H ABG Glucose 163 H Oxyhemoglobin Sodium Potassium Chloride Carbon Dioxide BUN Creatinine Glucose POC Glucose 120 H Lactic Acid Calcium Ferritin AST Alkaline Phosphatase Magnesium Lactate Dehydrogenase Total Creatine Kinase CK-MB (CK-2) C-Reactive Protein Total Protein Albumin Troponin T HDL Cholesterol Arterial Blood Glucose 163 H Urine WBC (Auto) Urine Creatinine Urine Total Protein Phenytoin Coronavirus (PCR) Crossmatch 07/04/20 07/04/20 07/04/20 05:49 11:54 18:00 WBC RBC Hgb Hct MCHC RDW Lymph % (Auto) [place] % (Auto) Eos % (Auto) Lymph # [place] # Lymph # (Auto) [place] # (Auto) Eos # (Auto) Seg Neutrophils % Seg Neuts % (Manual) Lymphocytes % (Manual) Seg Neutrophils # Seg Neutrophils # Man Lymphocytes # (Manual) Monocytes % (Manual) Eosinophils % (Manual) Monocytes # (Manual) Eosinophils # (Manual) D-Dimer Heparin Anti-Xa Level ABG pH POC ABG pCO2 POC ABG pO2 ABG pO2 ABG HCO3 ABG O2 Saturation ABG Base Excess ABG Hemoglobin ABG Oxyhemoglobin VBG pH ABG Sodium ABG Potassium ABG Glucose Oxyhemoglobin Sodium Potassium Chloride Carbon Dioxide BUN Creatinine Glucose POC Glucose 128 H 168 H 133 H Lactic Acid Calcium Ferritin AST Alkaline Phosphatase Magnesium Lactate Dehydrogenase Total Creatine Kinase CK-MB (CK-2) C-Reactive Protein Total Protein Albumin Troponin T HDL Cholesterol Arterial Blood Glucose Urine WBC (Auto) Urine Creatinine Urine Total Protein Phenytoin Coronavirus (PCR) Crossmatch 07/05/20 07/05/20 07/05/20 00:07 01:12 02:30 WBC RBC 2.35 L Hgb 6.9 L Hct 21.1 L MCHC RDW 16.8 H Lymph % (Auto) [place] % (Auto) Eos % (Auto) Lymph # [place] # Lymph # (Auto) [place] # (Auto) Eos # (Auto) Seg Neutrophils % Seg Neuts % (Manual) 74.0 H Lymphocytes % (Manual) 12.0 L Seg Neutrophils # Seg Neutrophils # Man 8.0 H Lymphocytes # (Manual) Monocytes % (Manual) 9.0 H Eosinophils % (Manual) Monocytes # (Manual) 1.0 H Eosinophils # (Manual) D-Dimer Heparin Anti-Xa Level ABG pH POC ABG pCO2 POC ABG pO2 ABG pO2 ABG HCO3 ABG O2 Saturation ABG Base Excess ABG Hemoglobin ABG Oxyhemoglobin VBG pH ABG Sodium ABG Potassium ABG Glucose Oxyhemoglobin Sodium Potassium Chloride Carbon Dioxide BUN Creatinine Glucose POC Glucose 121 H Lactic Acid Calcium Ferritin AST Alkaline Phosphatase Magnesium Lactate Dehydrogenase Total Creatine Kinase CK-MB (CK-2) C-Reactive Protein Total Protein Albumin Troponin T HDL Cholesterol Arterial Blood Glucose Urine WBC (Auto) Urine Creatinine Urine Total Protein Phenytoin Coronavirus (PCR) Crossmatch See Detail 07/05/20 07/05/20 07/05/20 12:09 13:05 18:04 WBC RBC Hgb Hct MCHC RDW Lymph % (Auto) [place] % (Auto) Eos % (Auto) Lymph # [place] # Lymph # (Auto) [place] # (Auto) Eos # (Auto) Seg Neutrophils % Seg Neuts % (Manual) Lymphocytes % (Manual) Seg Neutrophils # Seg Neutrophils # Man Lymphocytes # (Manual) Monocytes % (Manual) Eosinophils % (Manual) Monocytes # (Manual) Eosinophils # (Manual) D-Dimer Heparin Anti-Xa Level ABG pH 7.32 L POC ABG pCO2 POC ABG pO2 ABG pO2 78.3 L ABG HCO3 ABG O2 Saturation ABG Base Excess -2.6 L ABG Hemoglobin 7.3 L ABG Oxyhemoglobin VBG pH ABG Sodium ABG Potassium ABG Glucose Oxyhemoglobin Sodium Potassium Chloride Carbon Dioxide BUN Creatinine Glucose POC Glucose 132 H 160 H Lactic Acid Calcium Ferritin AST Alkaline Phosphatase Magnesium Lactate Dehydrogenase Total Creatine Kinase CK-MB (CK-2) C-Reactive Protein Total Protein Albumin Troponin T HDL Cholesterol Arterial Blood Glucose Urine WBC (Auto) Urine Creatinine Urine Total Protein Phenytoin Coronavirus (PCR) Crossmatch 07/05/20 07/05/20 07/05/20 23:13 23:13 23:43 WBC RBC 2.57 L Hgb 7.7 L Hct 23.0 L MCHC RDW 16.9 H Lymph % (Auto) [place] % (Auto) Eos % (Auto) Lymph # [place] # Lymph # (Auto) [place] # (Auto) Eos # (Auto) Seg Neutrophils % Seg Neuts % (Manual) Lymphocytes % (Manual) Seg Neutrophils # Seg Neutrophils # Man Lymphocytes # (Manual) Monocytes % (Manual) Eosinophils % (Manual) Monocytes # (Manual) Eosinophils # (Manual) D-Dimer Heparin Anti-Xa Level ABG pH POC ABG pCO2 POC ABG pO2 ABG pO2 ABG HCO3 ABG O2 Saturation ABG Base Excess ABG Hemoglobin ABG Oxyhemoglobin VBG pH ABG Sodium ABG Potassium ABG Glucose Oxyhemoglobin Sodium Potassium Chloride Carbon Dioxide 20 L BUN 80 H Creatinine 2.4 H D Glucose 124 H POC Glucose 121 H Lactic Acid Calcium 7.6 L Ferritin AST Alkaline Phosphatase Magnesium Lactate Dehydrogenase Total Creatine Kinase CK-MB (CK-2) C-Reactive Protein Total Protein Albumin Troponin T HDL Cholesterol Arterial Blood Glucose Urine WBC (Auto) Urine Creatinine Urine Total Protein Phenytoin Coronavirus (PCR) Crossmatch 07/06/20 07/06/20 07/06/20 13:20 14:48 17:28 WBC RBC Hgb Hct MCHC RDW Lymph % (Auto) [place] % (Auto) Eos % (Auto) Lymph # [place] # Lymph # (Auto) [place] # (Auto) Eos # (Auto) Seg Neutrophils % Seg Neuts % (Manual) Lymphocytes % (Manual) Seg Neutrophils # Seg Neutrophils # Man Lymphocytes # (Manual) Monocytes % (Manual) Eosinophils % (Manual) Monocytes # (Manual) Eosinophils # (Manual) D-Dimer Heparin Anti-Xa Level ABG pH POC ABG pCO2 POC ABG pO2 ABG pO2 ABG HCO3 ABG O2 Saturation ABG Base Excess ABG Hemoglobin ABG Oxyhemoglobin VBG pH ABG Sodium ABG Potassium ABG Glucose Oxyhemoglobin Sodium 136 L Potassium 5.5 H Chloride Carbon Dioxide 19 L BUN 82 H Creatinine 2.5 H Glucose 113 H POC Glucose 133 H Lactic Acid Calcium 7.7 L Ferritin AST Alkaline Phosphatase Magnesium Lactate Dehydrogenase Total Creatine Kinase CK-MB (CK-2) C-Reactive Protein Total Protein Albumin Troponin T HDL Cholesterol Arterial Blood Glucose Urine WBC (Auto) Urine Creatinine 33.3 H Urine Total Protein Phenytoin Coronavirus (PCR) Crossmatch 07/07/20 07/07/20 07/07/20 00:12 04:15 04:15 WBC RBC 2.28 L Hgb 6.8 L Hct 20.7 L MCHC RDW 16.8 H Lymph % (Auto) [place] % (Auto) Eos % (Auto) Lymph # [place] # Lymph # (Auto) [place] # (Auto) Eos # (Auto) Seg Neutrophils % Seg Neuts % (Manual) Lymphocytes % (Manual) 13.0 L Seg Neutrophils # Seg Neutrophils # Man Lymphocytes # (Manual) 1.0 L Monocytes % (Manual) 11.0 H Eosinophils % (Manual) Monocytes # (Manual) 0.9 H Eosinophils # (Manual) D-Dimer Heparin Anti-Xa Level ABG pH POC ABG pCO2 POC ABG pO2 ABG pO2 ABG HCO3 ABG O2 Saturation ABG Base Excess ABG Hemoglobin ABG Oxyhemoglobin VBG pH ABG Sodium ABG Potassium ABG Glucose Oxyhemoglobin Sodium Potassium Chloride Carbon Dioxide BUN Creatinine Glucose POC Glucose 154 H Lactic Acid Calcium Ferritin AST Alkaline Phosphatase Magnesium 2.50 H Lactate Dehydrogenase Total Creatine Kinase CK-MB (CK-2) C-Reactive Protein Total Protein Albumin Troponin T HDL Cholesterol Arterial Blood Glucose Urine WBC (Auto) Urine Creatinine Urine Total Protein Phenytoin Coronavirus (PCR) Crossmatch 07/07/20 07/07/20 07/07/20 05:31 12:31 13:22 WBC RBC Hgb Hct MCHC RDW Lymph % (Auto) [place] % (Auto) Eos % (Auto) Lymph # [place] # Lymph # (Auto) [place] # (Auto) Eos # (Auto) Seg Neutrophils % Seg Neuts % (Manual) Lymphocytes % (Manual) Seg Neutrophils # Seg Neutrophils # Man Lymphocytes # (Manual) Monocytes % (Manual) Eosinophils % (Manual) Monocytes # (Manual) Eosinophils # (Manual) D-Dimer Heparin Anti-Xa Level ABG pH POC ABG pCO2 POC ABG pO2 ABG pO2 ABG HCO3 ABG O2 Saturation ABG Base Excess ABG Hemoglobin ABG Oxyhemoglobin VBG pH ABG Sodium ABG Potassium ABG Glucose Oxyhemoglobin Sodium Potassium 5.6 H Chloride Carbon Dioxide BUN 86 H Creatinine 2.9 H Glucose 127 H POC Glucose 135 H 131 H Lactic Acid Calcium 8.1 L Ferritin AST Alkaline Phosphatase Magnesium Lactate Dehydrogenase Total Creatine Kinase CK-MB (CK-2) C-Reactive Protein Total Protein Albumin Troponin T HDL Cholesterol Arterial Blood Glucose Urine WBC (Auto) Urine Creatinine Urine Total Protein Phenytoin Coronavirus (PCR) Crossmatch 07/07/20 07/07/20 07/08/20 17:55 23:33 04:14 WBC RBC 3.28 L Hgb 9.7 L Hct 28.9 L D MCHC RDW 16.4 H Lymph % (Auto) 10.3 L [place] % (Auto) 10.0 H Eos % (Auto) Lymph # [place] # Lymph # (Auto) 1.1 L [place] # (Auto) 1.1 H Eos # (Auto) Seg Neutrophils % 77.2 H Seg Neuts % (Manual) Lymphocytes % (Manual) Seg Neutrophils # 8.2 H Seg Neutrophils # Man Lymphocytes # (Manual) Monocytes % (Manual) Eosinophils % (Manual) Monocytes # (Manual) Eosinophils # (Manual) D-Dimer Heparin Anti-Xa Level ABG pH POC ABG pCO2 POC ABG pO2 ABG pO2 ABG HCO3 ABG O2 Saturation ABG Base Excess ABG Hemoglobin ABG Oxyhemoglobin VBG pH ABG Sodium ABG Potassium ABG Glucose Oxyhemoglobin Sodium Potassium Chloride Carbon Dioxide BUN Creatinine Glucose POC Glucose 136 H 159 H Lactic Acid Calcium Ferritin AST Alkaline Phosphatase Magnesium Lactate Dehydrogenase Total Creatine Kinase CK-MB (CK-2) C-Reactive Protein Total Protein Albumin Troponin T HDL Cholesterol Arterial Blood Glucose Urine WBC (Auto) Urine Creatinine Urine Total Protein Phenytoin Coronavirus (PCR) Crossmatch 07/08/20 07/08/20 07/08/20 04:14 12:10 18:10 WBC RBC Hgb Hct MCHC RDW Lymph % (Auto) [place] % (Auto) Eos % (Auto) Lymph # [place] # Lymph # (Auto) [place] # (Auto) Eos # (Auto) Seg Neutrophils % Seg Neuts % (Manual) Lymphocytes % (Manual) Seg Neutrophils # Seg Neutrophils # Man Lymphocytes # (Manual) Monocytes % (Manual) Eosinophils % (Manual) Monocytes # (Manual) Eosinophils # (Manual) D-Dimer Heparin Anti-Xa Level ABG pH POC ABG pCO2 POC ABG pO2 ABG pO2 ABG HCO3 ABG O2 Saturation ABG Base Excess ABG Hemoglobin ABG Oxyhemoglobin VBG pH ABG Sodium ABG Potassium ABG Glucose Oxyhemoglobin Sodium 136 L Potassium Chloride Carbon Dioxide BUN 84 H Creatinine 2.8 H Glucose 109 H POC Glucose 108 H 125 H Lactic Acid Calcium 8.1 L Ferritin AST Alkaline Phosphatase Magnesium 2.50 H Lactate Dehydrogenase Total Creatine Kinase CK-MB (CK-2) C-Reactive Protein Total Protein Albumin Troponin T HDL Cholesterol Arterial Blood Glucose Urine WBC (Auto) Urine Creatinine Urine Total Protein Phenytoin Coronavirus (PCR) Crossmatch 07/08/20 07/09/20 07/09/20 23:50 05:39 11:57 WBC RBC Hgb Hct MCHC RDW Lymph % (Auto) [place] % (Auto) Eos % (Auto) Lymph # [place] # Lymph # (Auto) [place] # (Auto) Eos # (Auto) Seg Neutrophils % Seg Neuts % (Manual) Lymphocytes % (Manual) Seg Neutrophils # Seg Neutrophils # Man Lymphocytes # (Manual) Monocytes % (Manual) Eosinophils % (Manual) Monocytes # (Manual) Eosinophils # (Manual) D-Dimer Heparin Anti-Xa Level ABG pH POC ABG pCO2 POC ABG pO2 ABG pO2 ABG HCO3 ABG O2 Saturation ABG Base Excess ABG Hemoglobin ABG Oxyhemoglobin VBG pH ABG Sodium ABG Potassium ABG Glucose Oxyhemoglobin Sodium Potassium Chloride Carbon Dioxide BUN Creatinine Glucose POC Glucose 141 H 121 H 123 H Lactic Acid Calcium Ferritin AST Alkaline Phosphatase Magnesium Lactate Dehydrogenase Total Creatine Kinase CK-MB (CK-2) C-Reactive Protein Total Protein Albumin Troponin T HDL Cholesterol Arterial Blood Glucose Urine WBC (Auto) Urine Creatinine Urine Total Protein Phenytoin Coronavirus (PCR) Crossmatch 07/09/20 07/10/20 07/10/20 17:56 00:29 05:50 WBC RBC Hgb Hct MCHC RDW Lymph % (Auto) [place] % (Auto) Eos % (Auto) Lymph # [place] # Lymph # (Auto) [place] # (Auto) Eos # (Auto) Seg Neutrophils % Seg Neuts % (Manual) Lymphocytes % (Manual) Seg Neutrophils # Seg Neutrophils # Man Lymphocytes # (Manual) Monocytes % (Manual) Eosinophils % (Manual) Monocytes # (Manual) Eosinophils # (Manual) D-Dimer Heparin Anti-Xa Level ABG pH POC ABG pCO2 POC ABG pO2 ABG pO2 ABG HCO3 ABG O2 Saturation ABG Base Excess ABG Hemoglobin ABG Oxyhemoglobin VBG pH ABG Sodium ABG Potassium ABG Glucose Oxyhemoglobin Sodium Potassium Chloride Carbon Dioxide BUN Creatinine Glucose POC Glucose 119 H 122 H 124 H Lactic Acid Calcium Ferritin AST Alkaline Phosphatase Magnesium Lactate Dehydrogenase Total Creatine Kinase CK-MB (CK-2) C-Reactive Protein Total Protein Albumin Troponin T HDL Cholesterol Arterial Blood Glucose Urine WBC (Auto) Urine Creatinine Urine Total Protein Phenytoin Coronavirus (PCR) Crossmatch 07/10/20 07/10/20 07/10/20 10:41 10:41 12:25 WBC RBC 3.11 L Hgb 9.2 L Hct 27.6 L MCHC RDW 16.6 H Lymph % (Auto) [place] % (Auto) Eos % (Auto) Lymph # [place] # Lymph # (Auto) [place] # (Auto) Eos # (Auto) Seg Neutrophils % Seg Neuts % (Manual) 78.0 H Lymphocytes % (Manual) 11.0 L Seg Neutrophils # Seg Neutrophils # Man Lymphocytes # (Manual) 1.0 L Monocytes % (Manual) Eosinophils % (Manual) Monocytes # (Manual) Eosinophils # (Manual) D-Dimer Heparin Anti-Xa Level ABG pH POC ABG pCO2 POC ABG pO2 ABG pO2 ABG HCO3 ABG O2 Saturation ABG Base Excess ABG Hemoglobin ABG Oxyhemoglobin VBG pH ABG Sodium ABG Potassium ABG Glucose Oxyhemoglobin Sodium Potassium Chloride Carbon Dioxide BUN 85 H Creatinine 2.5 H Glucose 133 H POC Glucose 131 H Lactic Acid Calcium Ferritin AST Alkaline Phosphatase 131 H Magnesium Lactate Dehydrogenase Total Creatine Kinase CK-MB (CK-2) C-Reactive Protein Total Protein 5.2 L Albumin 1.6 L Troponin T HDL Cholesterol Arterial Blood Glucose Urine WBC (Auto) Urine Creatinine Urine Total Protein Phenytoin Coronavirus (PCR) Crossmatch 07/10/20 07/11/20 07/11/20 18:10 00:28 05:57 WBC RBC Hgb Hct MCHC RDW Lymph % (Auto) [place] % (Auto) Eos % (Auto) Lymph # [place] # Lymph # (Auto) [place] # (Auto) Eos # (Auto) Seg Neutrophils % Seg Neuts % (Manual) Lymphocytes % (Manual) Seg Neutrophils # Seg Neutrophils # Man Lymphocytes # (Manual) Monocytes % (Manual) Eosinophils % (Manual) Monocytes # (Manual) Eosinophils # (Manual) D-Dimer Heparin Anti-Xa Level ABG pH POC ABG pCO2 POC ABG pO2 ABG pO2 ABG HCO3 ABG O2 Saturation ABG Base Excess ABG Hemoglobin ABG Oxyhemoglobin VBG pH ABG Sodium ABG Potassium ABG Glucose Oxyhemoglobin Sodium Potassium Chloride Carbon Dioxide BUN Creatinine Glucose POC Glucose 134 H 140 H 148 H Lactic Acid Calcium Ferritin AST Alkaline Phosphatase Magnesium Lactate Dehydrogenase Total Creatine Kinase CK-MB (CK-2) C-Reactive Protein Total Protein Albumin Troponin T HDL Cholesterol Arterial Blood Glucose Urine WBC (Auto) Urine Creatinine Urine Total Protein Phenytoin Coronavirus (PCR) Crossmatch 07/11/20 07/11/20 07/11/20 12:14 17:28 23:49 WBC RBC Hgb Hct MCHC RDW Lymph % (Auto) [place] % (Auto) Eos % (Auto) Lymph # [place] # Lymph # (Auto) [place] # (Auto) Eos # (Auto) Seg Neutrophils % Seg Neuts % (Manual) Lymphocytes % (Manual) Seg Neutrophils # Seg Neutrophils # Man Lymphocytes # (Manual) Monocytes % (Manual) Eosinophils % (Manual) Monocytes # (Manual) Eosinophils # (Manual) D-Dimer Heparin Anti-Xa Level ABG pH POC ABG pCO2 POC ABG pO2 ABG pO2 ABG HCO3 ABG O2 Saturation ABG Base Excess ABG Hemoglobin ABG Oxyhemoglobin VBG pH ABG Sodium ABG Potassium ABG Glucose Oxyhemoglobin Sodium Potassium Chloride Carbon Dioxide BUN Creatinine Glucose POC Glucose 147 H 175 H 114 H Lactic Acid Calcium Ferritin AST Alkaline Phosphatase Magnesium Lactate Dehydrogenase Total Creatine Kinase CK-MB (CK-2) C-Reactive Protein Total Protein Albumin Troponin T HDL Cholesterol Arterial Blood Glucose Urine WBC (Auto) Urine Creatinine Urine Total Protein Phenytoin Coronavirus (PCR) Crossmatch 07/12/20 07/12/20 07/12/20 05:14 05:14 05:44 WBC RBC 2.78 L Hgb 8.5 L Hct 25.3 L MCHC RDW 16.7 H Lymph % (Auto) [place] % (Auto) Eos % (Auto) Lymph # [place] # Lymph # (Auto) [place] # (Auto) Eos # (Auto) Seg Neutrophils % Seg Neuts % (Manual) 81.0 H Lymphocytes % (Manual) 6.0 L Seg Neutrophils # Seg Neutrophils # Man Lymphocytes # (Manual) 0.6 L Monocytes % (Manual) 8.0 H Eosinophils % (Manual) Monocytes # (Manual) Eosinophils # (Manual) D-Dimer Heparin Anti-Xa Level ABG pH POC ABG pCO2 POC ABG pO2 ABG pO2 ABG HCO3 ABG O2 Saturation ABG Base Excess ABG Hemoglobin ABG Oxyhemoglobin VBG pH ABG Sodium ABG Potassium ABG Glucose Oxyhemoglobin Sodium Potassium Chloride Carbon Dioxide BUN 79 H Creatinine 2.2 H Glucose 131 H POC Glucose 116 H Lactic Acid Calcium Ferritin AST Alkaline Phosphatase Magnesium Lactate Dehydrogenase Total Creatine Kinase CK-MB (CK-2) C-Reactive Protein Total Protein Albumin Troponin T HDL Cholesterol Arterial Blood Glucose Urine WBC (Auto) Urine Creatinine Urine Total Protein Phenytoin Coronavirus (PCR) Crossmatch 07/12/20 07/12/20 07/13/20 11:32 17:53 00:18 WBC RBC Hgb Hct MCHC RDW Lymph % (Auto) [place] % (Auto) Eos % (Auto) Lymph # [place] # Lymph # (Auto) [place] # (Auto) Eos # (Auto) Seg Neutrophils % Seg Neuts % (Manual) Lymphocytes % (Manual) Seg Neutrophils # Seg Neutrophils # Man Lymphocytes # (Manual) Monocytes % (Manual) Eosinophils % (Manual) Monocytes # (Manual) Eosinophils # (Manual) D-Dimer Heparin Anti-Xa Level ABG pH POC ABG pCO2 POC ABG pO2 ABG pO2 ABG HCO3 ABG O2 Saturation ABG Base Excess ABG Hemoglobin ABG Oxyhemoglobin VBG pH ABG Sodium ABG Potassium ABG Glucose Oxyhemoglobin Sodium Potassium Chloride Carbon Dioxide BUN Creatinine Glucose POC Glucose 132 H 155 H 162 H Lactic Acid Calcium Ferritin AST Alkaline Phosphatase Magnesium Lactate Dehydrogenase Total Creatine Kinase CK-MB (CK-2) C-Reactive Protein Total Protein Albumin Troponin T HDL Cholesterol Arterial Blood Glucose Urine WBC (Auto) Urine Creatinine Urine Total Protein Phenytoin Coronavirus (PCR) Crossmatch 07/13/20 07/13/20 07/13/20 04:53 04:53 06:14 WBC RBC 2.86 L Hgb 8.4 L Hct 25.7 L MCHC RDW 16.8 H Lymph % (Auto) [place] % (Auto) Eos % (Auto) Lymph # [place] # Lymph # (Auto) [place] # (Auto) Eos # (Auto) Seg Neutrophils % Seg Neuts % (Manual) 84.0 H Lymphocytes % (Manual) 7.0 L Seg Neutrophils # Seg Neutrophils # Man Lymphocytes # (Manual) 0.6 L Monocytes % (Manual) Eosinophils % (Manual) Monocytes # (Manual) Eosinophils # (Manual) D-Dimer Heparin Anti-Xa Level ABG pH POC ABG pCO2 POC ABG pO2 ABG pO2 ABG HCO3 ABG O2 Saturation ABG Base Excess ABG Hemoglobin ABG Oxyhemoglobin VBG pH ABG Sodium ABG Potassium ABG Glucose Oxyhemoglobin Sodium 136 L Potassium Chloride Carbon Dioxide BUN 78 H Creatinine 2.0 H Glucose 130 H POC Glucose 141 H Lactic Acid Calcium Ferritin AST Alkaline Phosphatase Magnesium Lactate Dehydrogenase Total Creatine Kinase CK-MB (CK-2) C-Reactive Protein Total Protein Albumin Troponin T HDL Cholesterol Arterial Blood Glucose Urine WBC (Auto) Urine Creatinine Urine Total Protein Phenytoin Coronavirus (PCR) Crossmatch 07/13/20 07/13/20 07/14/20 12:50 18:27 00:22 WBC RBC Hgb Hct MCHC RDW Lymph % (Auto) [place] % (Auto) Eos % (Auto) Lymph # [place] # Lymph # (Auto) [place] # (Auto) Eos # (Auto) Seg Neutrophils % Seg Neuts % (Manual) Lymphocytes % (Manual) Seg Neutrophils # Seg Neutrophils # Man Lymphocytes # (Manual) Monocytes % (Manual) Eosinophils % (Manual) Monocytes # (Manual) Eosinophils # (Manual) D-Dimer Heparin Anti-Xa Level ABG pH POC ABG pCO2 POC ABG pO2 ABG pO2 ABG HCO3 ABG O2 Saturation ABG Base Excess ABG Hemoglobin ABG Oxyhemoglobin VBG pH ABG Sodium ABG Potassium ABG Glucose Oxyhemoglobin Sodium Potassium Chloride Carbon Dioxide BUN Creatinine Glucose POC Glucose 146 H 149 H 157 H Lactic Acid Calcium Ferritin AST Alkaline Phosphatase Magnesium Lactate Dehydrogenase Total Creatine Kinase CK-MB (CK-2) C-Reactive Protein Total Protein Albumin Troponin T HDL Cholesterol Arterial Blood Glucose Urine WBC (Auto) Urine Creatinine Urine Total Protein Phenytoin Coronavirus (PCR) Crossmatch 07/14/20 07/14/20 07/14/20 05:43 08:04 12:12 WBC RBC Hgb Hct MCHC RDW Lymph % (Auto) [place] % (Auto) Eos % (Auto) Lymph # [place] # Lymph # (Auto) [place] # (Auto) Eos # (Auto) Seg Neutrophils % Seg Neuts % (Manual) Lymphocytes % (Manual) Seg Neutrophils # Seg Neutrophils # Man Lymphocytes # (Manual) Monocytes % (Manual) Eosinophils % (Manual) Monocytes # (Manual) Eosinophils # (Manual) D-Dimer Heparin Anti-Xa Level ABG pH POC ABG pCO2 POC ABG pO2 ABG pO2 ABG HCO3 ABG O2 Saturation ABG Base Excess ABG Hemoglobin ABG Oxyhemoglobin VBG pH ABG Sodium ABG Potassium ABG Glucose Oxyhemoglobin Sodium Potassium Chloride Carbon Dioxide BUN Creatinine Glucose POC Glucose 169 H 185 H Lactic Acid Calcium Ferritin AST Alkaline Phosphatase Magnesium Lactate Dehydrogenase Total Creatine Kinase CK-MB (CK-2) C-Reactive Protein Total Protein Albumin Troponin T HDL Cholesterol Arterial Blood Glucose Urine WBC (Auto) Urine Creatinine Urine Total Protein Phenytoin Coronavirus (PCR) Positive A Crossmatch 07/14/20 07/15/20 07/15/20 17:23 00:04 06:06 WBC RBC Hgb Hct MCHC RDW Lymph % (Auto) [place] % (Auto) Eos % (Auto) Lymph # [place] # Lymph # (Auto) [place] # (Auto) Eos # (Auto) Seg Neutrophils % Seg Neuts % (Manual) Lymphocytes % (Manual) Seg Neutrophils # Seg Neutrophils # Man Lymphocytes # (Manual) Monocytes % (Manual) Eosinophils % (Manual) Monocytes # (Manual) Eosinophils # (Manual) D-Dimer Heparin Anti-Xa Level ABG pH POC ABG pCO2 POC ABG pO2 ABG pO2 ABG HCO3 ABG O2 Saturation ABG Base Excess ABG Hemoglobin ABG Oxyhemoglobin VBG pH ABG Sodium ABG Potassium ABG Glucose Oxyhemoglobin Sodium Potassium Chloride Carbon Dioxide BUN Creatinine Glucose POC Glucose 138 H 121 H 140 H Lactic Acid Calcium Ferritin AST Alkaline Phosphatase Magnesium Lactate Dehydrogenase Total Creatine Kinase CK-MB (CK-2) C-Reactive Protein Total Protein Albumin Troponin T HDL Cholesterol Arterial Blood Glucose Urine WBC (Auto) Urine Creatinine Urine Total Protein Phenytoin Coronavirus (PCR) Crossmatch 07/15/20 07/15/20 07/15/20 12:00 17:53 23:53 WBC RBC Hgb Hct MCHC RDW Lymph % (Auto) [place] % (Auto) Eos % (Auto) Lymph # [place] # Lymph # (Auto) [place] # (Auto) Eos # (Auto) Seg Neutrophils % Seg Neuts % (Manual) Lymphocytes % (Manual) Seg Neutrophils # Seg Neutrophils # Man Lymphocytes # (Manual) Monocytes % (Manual) Eosinophils % (Manual) Monocytes # (Manual) Eosinophils # (Manual) D-Dimer Heparin Anti-Xa Level ABG pH POC ABG pCO2 POC ABG pO2 ABG pO2 ABG HCO3 ABG O2 Saturation ABG Base Excess ABG Hemoglobin ABG Oxyhemoglobin VBG pH ABG Sodium ABG Potassium ABG Glucose Oxyhemoglobin Sodium Potassium Chloride Carbon Dioxide BUN Creatinine Glucose POC Glucose 137 H 161 H 156 H Lactic Acid Calcium Ferritin AST Alkaline Phosphatase Magnesium Lactate Dehydrogenase Total Creatine Kinase CK-MB (CK-2) C-Reactive Protein Total Protein Albumin Troponin T HDL Cholesterol Arterial Blood Glucose Urine WBC (Auto) Urine Creatinine Urine Total Protein Phenytoin Coronavirus (PCR) Crossmatch 07/16/20 07/16/20 07/17/20 05:26 17:44 00:07 WBC RBC Hgb Hct MCHC RDW Lymph % (Auto) [place] % (Auto) Eos % (Auto) Lymph # [place] # Lymph # (Auto) [place] # (Auto) Eos # (Auto) Seg Neutrophils % Seg Neuts % (Manual) Lymphocytes % (Manual) Seg Neutrophils # Seg Neutrophils # Man Lymphocytes # (Manual) Monocytes % (Manual) Eosinophils % (Manual) Monocytes # (Manual) Eosinophils # (Manual) D-Dimer Heparin Anti-Xa Level ABG pH POC ABG pCO2 POC ABG pO2 ABG pO2 ABG HCO3 ABG O2 Saturation ABG Base Excess ABG Hemoglobin ABG Oxyhemoglobin VBG pH ABG Sodium ABG Potassium ABG Glucose Oxyhemoglobin Sodium Potassium Chloride Carbon Dioxide BUN Creatinine Glucose POC Glucose 152 H 126 H 189 H Lactic Acid Calcium Ferritin AST Alkaline Phosphatase Magnesium Lactate Dehydrogenase Total Creatine Kinase CK-MB (CK-2) C-Reactive Protein Total Protein Albumin Troponin T HDL Cholesterol Arterial Blood Glucose Urine WBC (Auto) Urine Creatinine Urine Total Protein Phenytoin Coronavirus (PCR) Crossmatch 07/17/20 07/17/20 07/17/20 12:06 18:20 23:25 WBC RBC Hgb Hct MCHC RDW Lymph % (Auto) [place] % (Auto) Eos % (Auto) Lymph # [place] # Lymph # (Auto) [place] # (Auto) Eos # (Auto) Seg Neutrophils % Seg Neuts % (Manual) Lymphocytes % (Manual) Seg Neutrophils # Seg Neutrophils # Man Lymphocytes # (Manual) Monocytes % (Manual) Eosinophils % (Manual) Monocytes # (Manual) Eosinophils # (Manual) D-Dimer Heparin Anti-Xa Level ABG pH POC ABG pCO2 POC ABG pO2 ABG pO2 ABG HCO3 ABG O2 Saturation ABG Base Excess ABG Hemoglobin ABG Oxyhemoglobin VBG pH ABG Sodium ABG Potassium ABG Glucose Oxyhemoglobin Sodium Potassium Chloride Carbon Dioxide BUN Creatinine Glucose POC Glucose 155 H 206 H 161 H Lactic Acid Calcium Ferritin AST Alkaline Phosphatase Magnesium Lactate Dehydrogenase Total Creatine Kinase CK-MB (CK-2) C-Reactive Protein Total Protein Albumin Troponin T HDL Cholesterol Arterial Blood Glucose Urine WBC (Auto) Urine Creatinine Urine Total Protein Phenytoin Coronavirus (PCR) Crossmatch 07/18/20 07/18/20 07/18/20 04:24 05:16 11:53 WBC RBC Hgb Hct MCHC RDW Lymph % (Auto) [place] % (Auto) Eos % (Auto) Lymph # [place] # Lymph # (Auto) [place] # (Auto) Eos # (Auto) Seg Neutrophils % Seg Neuts % (Manual) Lymphocytes % (Manual) Seg Neutrophils # Seg Neutrophils # Man Lymphocytes # (Manual) Monocytes % (Manual) Eosinophils % (Manual) Monocytes # (Manual) Eosinophils # (Manual) D-Dimer Heparin Anti-Xa Level ABG pH POC ABG pCO2 POC ABG pO2 ABG pO2 ABG HCO3 ABG O2 Saturation ABG Base Excess ABG Hemoglobin 8.8 L ABG Oxyhemoglobin VBG pH ABG Sodium 131.6 L ABG Potassium 4.9 H ABG Glucose 131 H Oxyhemoglobin Sodium Potassium Chloride Carbon Dioxide BUN Creatinine Glucose POC Glucose 140 H 176 H Lactic Acid Calcium Ferritin AST Alkaline Phosphatase Magnesium Lactate Dehydrogenase Total Creatine Kinase CK-MB (CK-2) C-Reactive Protein Total Protein Albumin Troponin T HDL Cholesterol Arterial Blood Glucose 131 H Urine WBC (Auto) Urine Creatinine Urine Total Protein Phenytoin Coronavirus (PCR) Crossmatch 07/18/20 07/18/20 07/19/20 18:11 23:51 01:05 WBC RBC 2.76 L Hgb 7.9 L Hct 24.5 L MCHC RDW 17.6 H Lymph % (Auto) 11.6 L [place] % (Auto) 13.1 H Eos % (Auto) Lymph # [place] # Lymph # (Auto) 1.0 L [place] # (Auto) 1.1 H Eos # (Auto) Seg Neutrophils % 70.9 H Seg Neuts % (Manual) Lymphocytes % (Manual) Seg Neutrophils # Seg Neutrophils # Man Lymphocytes # (Manual) Monocytes % (Manual) Eosinophils % (Manual) Monocytes # (Manual) Eosinophils # (Manual) D-Dimer Heparin Anti-Xa Level ABG pH POC ABG pCO2 POC ABG pO2 ABG pO2 ABG HCO3 ABG O2 Saturation ABG Base Excess ABG Hemoglobin ABG Oxyhemoglobin VBG pH ABG Sodium ABG Potassium ABG Glucose Oxyhemoglobin Sodium Potassium Chloride Carbon Dioxide BUN Creatinine Glucose POC Glucose 143 H 159 H Lactic Acid Calcium Ferritin AST Alkaline Phosphatase Magnesium Lactate Dehydrogenase Total Creatine Kinase CK-MB (CK-2) C-Reactive Protein Total Protein Albumin Troponin T HDL Cholesterol Arterial Blood Glucose Urine WBC (Auto) Urine Creatinine Urine Total Protein Phenytoin Coronavirus (PCR) Crossmatch 07/19/20 07/19/20 07/19/20 01:05 05:54 12:46 WBC RBC Hgb Hct MCHC RDW Lymph % (Auto) [place] % (Auto) Eos % (Auto) Lymph # [place] # Lymph # (Auto) [place] # (Auto) Eos # (Auto) Seg Neutrophils % Seg Neuts % (Manual) Lymphocytes % (Manual) Seg Neutrophils # Seg Neutrophils # Man Lymphocytes # (Manual) Monocytes % (Manual) Eosinophils % (Manual) Monocytes # (Manual) Eosinophils # (Manual) D-Dimer Heparin Anti-Xa Level ABG pH POC ABG pCO2 POC ABG pO2 ABG pO2 ABG HCO3 ABG O2 Saturation ABG Base Excess ABG Hemoglobin ABG Oxyhemoglobin VBG pH ABG Sodium ABG Potassium ABG Glucose Oxyhemoglobin Sodium Potassium Chloride Carbon Dioxide BUN 86 H Creatinine 1.7 H Glucose 149 H POC Glucose 176 H 127 H Lactic Acid Calcium Ferritin AST Alkaline Phosphatase Magnesium Lactate Dehydrogenase Total Creatine Kinase CK-MB (CK-2) C-Reactive Protein Total Protein Albumin Troponin T HDL Cholesterol Arterial Blood Glucose Urine WBC (Auto) Urine Creatinine Urine Total Protein Phenytoin Coronavirus (PCR) Crossmatch 07/19/20 07/20/20 07/20/20 17:48 00:34 05:28 WBC RBC Hgb Hct MCHC RDW Lymph % (Auto) [place] % (Auto) Eos % (Auto) Lymph # [place] # Lymph # (Auto) [place] # (Auto) Eos # (Auto) Seg Neutrophils % Seg Neuts % (Manual) Lymphocytes % (Manual) Seg Neutrophils # Seg Neutrophils # Man Lymphocytes # (Manual) Monocytes % (Manual) Eosinophils % (Manual) Monocytes # (Manual) Eosinophils # (Manual) D-Dimer Heparin Anti-Xa Level ABG pH POC ABG pCO2 POC ABG pO2 ABG pO2 ABG HCO3 ABG O2 Saturation ABG Base Excess ABG Hemoglobin ABG Oxyhemoglobin VBG pH ABG Sodium ABG Potassium ABG Glucose Oxyhemoglobin Sodium Potassium Chloride Carbon Dioxide BUN Creatinine Glucose POC Glucose 123 H 147 H 110 H Lactic Acid Calcium Ferritin AST Alkaline Phosphatase Magnesium Lactate Dehydrogenase Total Creatine Kinase CK-MB (CK-2) C-Reactive Protein Total Protein Albumin Troponin T HDL Cholesterol Arterial Blood Glucose Urine WBC (Auto) Urine Creatinine Urine Total Protein Phenytoin Coronavirus (PCR) Crossmatch 07/20/20 07/20/20 07/21/20 12:10 17:00 00:11 WBC RBC Hgb Hct MCHC RDW Lymph % (Auto) [place] % (Auto) Eos % (Auto) Lymph # [place] # Lymph # (Auto) [place] # (Auto) Eos # (Auto) Seg Neutrophils % Seg Neuts % (Manual) Lymphocytes % (Manual) Seg Neutrophils # Seg Neutrophils # Man Lymphocytes # (Manual) Monocytes % (Manual) Eosinophils % (Manual) Monocytes # (Manual) Eosinophils # (Manual) D-Dimer Heparin Anti-Xa Level ABG pH POC ABG pCO2 POC ABG pO2 ABG pO2 ABG HCO3 ABG O2 Saturation ABG Base Excess ABG Hemoglobin ABG Oxyhemoglobin VBG pH ABG Sodium ABG Potassium ABG Glucose Oxyhemoglobin Sodium Potassium Chloride Carbon Dioxide BUN Creatinine Glucose POC Glucose 149 H 173 H 128 H Lactic Acid Calcium Ferritin AST Alkaline Phosphatase Magnesium Lactate Dehydrogenase Total Creatine Kinase CK-MB (CK-2) C-Reactive Protein Total Protein Albumin Troponin T HDL Cholesterol Arterial Blood Glucose Urine WBC (Auto) Urine Creatinine Urine Total Protein Phenytoin Coronavirus (PCR) Crossmatch 07/21/20 07/21/20 07/21/20 05:30 12:21 18:17 WBC RBC Hgb Hct MCHC RDW Lymph % (Auto) [place] % (Auto) Eos % (Auto) Lymph # [place] # Lymph # (Auto) [place] # (Auto) Eos # (Auto) Seg Neutrophils % Seg Neuts % (Manual) Lymphocytes % (Manual) Seg Neutrophils # Seg Neutrophils # Man Lymphocytes # (Manual) Monocytes % (Manual) Eosinophils % (Manual) Monocytes # (Manual) Eosinophils # (Manual) D-Dimer Heparin Anti-Xa Level ABG pH POC ABG pCO2 POC ABG pO2 ABG pO2 ABG HCO3 ABG O2 Saturation ABG Base Excess ABG Hemoglobin ABG Oxyhemoglobin VBG pH ABG Sodium ABG Potassium ABG Glucose Oxyhemoglobin Sodium Potassium Chloride Carbon Dioxide BUN Creatinine Glucose POC Glucose 153 H 144 H 160 H Lactic Acid Calcium Ferritin AST Alkaline Phosphatase Magnesium Lactate Dehydrogenase Total Creatine Kinase CK-MB (CK-2) C-Reactive Protein Total Protein Albumin Troponin T HDL Cholesterol Arterial Blood Glucose Urine WBC (Auto) Urine Creatinine Urine Total Protein Phenytoin Coronavirus (PCR) Crossmatch 07/22/20 07/22/20 07/22/20 00:45 05:52 12:03 WBC RBC Hgb Hct MCHC RDW Lymph % (Auto) [place] % (Auto) Eos % (Auto) Lymph # [place] # Lymph # (Auto) [place] # (Auto) Eos # (Auto) Seg Neutrophils % Seg Neuts % (Manual) Lymphocytes % (Manual) Seg Neutrophils # Seg Neutrophils # Man Lymphocytes # (Manual) Monocytes % (Manual) Eosinophils % (Manual) Monocytes # (Manual) Eosinophils # (Manual) D-Dimer Heparin Anti-Xa Level ABG pH POC ABG pCO2 POC ABG pO2 ABG pO2 ABG HCO3 ABG O2 Saturation ABG Base Excess ABG Hemoglobin ABG Oxyhemoglobin VBG pH ABG Sodium ABG Potassium ABG Glucose Oxyhemoglobin Sodium Potassium Chloride Carbon Dioxide BUN Creatinine Glucose POC Glucose 128 H 126 H 157 H Lactic Acid Calcium Ferritin AST Alkaline Phosphatase Magnesium Lactate Dehydrogenase Total Creatine Kinase CK-MB (CK-2) C-Reactive Protein Total Protein Albumin Troponin T HDL Cholesterol Arterial Blood Glucose Urine WBC (Auto) Urine Creatinine Urine Total Protein Phenytoin Coronavirus (PCR) Crossmatch 07/22/20 07/22/20 07/23/20 18:23 23:20 06:06 WBC RBC Hgb Hct MCHC RDW Lymph % (Auto) [place] % (Auto) Eos % (Auto) Lymph # [place] # Lymph # (Auto) [place] # (Auto) Eos # (Auto) Seg Neutrophils % Seg Neuts % (Manual) Lymphocytes % (Manual) Seg Neutrophils # Seg Neutrophils # Man Lymphocytes # (Manual) Monocytes % (Manual) Eosinophils % (Manual) Monocytes # (Manual) Eosinophils # (Manual) D-Dimer Heparin Anti-Xa Level ABG pH POC ABG pCO2 POC ABG pO2 ABG pO2 ABG HCO3 ABG O2 Saturation ABG Base Excess ABG Hemoglobin ABG Oxyhemoglobin VBG pH ABG Sodium ABG Potassium ABG Glucose Oxyhemoglobin Sodium Potassium Chloride Carbon Dioxide BUN Creatinine Glucose POC Glucose 152 H 122 H 143 H Lactic Acid Calcium Ferritin AST Alkaline Phosphatase Magnesium Lactate Dehydrogenase Total Creatine Kinase CK-MB (CK-2) C-Reactive Protein Total Protein Albumin Troponin T HDL Cholesterol Arterial Blood Glucose Urine WBC (Auto) Urine Creatinine Urine Total Protein Phenytoin Coronavirus (PCR) Crossmatch 07/23/20 07/23/20 07/23/20 12:11 17:38 19:23 WBC RBC Hgb Hct MCHC RDW Lymph % (Auto) [place] % (Auto) Eos % (Auto) Lymph # [place] # Lymph # (Auto) [place] # (Auto) Eos # (Auto) Seg Neutrophils % Seg Neuts % (Manual) Lymphocytes % (Manual) Seg Neutrophils # Seg Neutrophils # Man Lymphocytes # (Manual) Monocytes % (Manual) Eosinophils % (Manual) Monocytes # (Manual) Eosinophils # (Manual) D-Dimer Heparin Anti-Xa Level ABG pH POC ABG pCO2 POC ABG pO2 ABG pO2 ABG HCO3 ABG O2 Saturation ABG Base Excess ABG Hemoglobin ABG Oxyhemoglobin VBG pH ABG Sodium ABG Potassium ABG Glucose Oxyhemoglobin Sodium 129 L D Potassium 5.8 H Chloride 95.6 L Carbon Dioxide BUN 98 H Creatinine 2.1 H Glucose 167 H POC Glucose 210 H 181 H Lactic Acid Calcium Ferritin AST Alkaline Phosphatase Magnesium Lactate Dehydrogenase Total Creatine Kinase CK-MB (CK-2) C-Reactive Protein Total Protein Albumin 2.2 L Troponin T HDL Cholesterol Arterial Blood Glucose Urine WBC (Auto) Urine Creatinine Urine Total Protein Phenytoin Coronavirus (PCR) Crossmatch 07/24/20 07/24/20 07/24/20 00:00 04:29 04:29 WBC RBC 2.53 L Hgb 7.5 L Hct 22.8 L MCHC RDW 16.8 H Lymph % (Auto) 9.4 L [place] % (Auto) 10.4 H Eos % (Auto) 5.9 H Lymph # [place] # Lymph # (Auto) 0.8 L [place] # (Auto) 0.9 H Eos # (Auto) 0.5 H Seg Neutrophils % 73.5 H Seg Neuts % (Manual) Lymphocytes % (Manual) Seg Neutrophils # Seg Neutrophils # Man Lymphocytes # (Manual) Monocytes % (Manual) Eosinophils % (Manual) Monocytes # (Manual) Eosinophils # (Manual) D-Dimer Heparin Anti-Xa Level ABG pH POC ABG pCO2 POC ABG pO2 ABG pO2 ABG HCO3 ABG O2 Saturation ABG Base Excess ABG Hemoglobin ABG Oxyhemoglobin VBG pH ABG Sodium ABG Potassium ABG Glucose Oxyhemoglobin Sodium Potassium Chloride Carbon Dioxide BUN Creatinine Glucose POC Glucose 201 H Lactic Acid Calcium Ferritin AST Alkaline Phosphatase Magnesium Lactate Dehydrogenase Total Creatine Kinase CK-MB (CK-2) C-Reactive Protein Total Protein Albumin Troponin T HDL Cholesterol Arterial Blood Glucose Urine WBC (Auto) Urine Creatinine Urine Total Protein Phenytoin 9.4 L Coronavirus (PCR) Crossmatch 07/24/20 07/24/20 07/24/20 04:29 05:11 12:14 WBC RBC Hgb Hct MCHC RDW Lymph % (Auto) [place] % (Auto) Eos % (Auto) Lymph # [place] # Lymph # (Auto) [place] # (Auto) Eos # (Auto) Seg Neutrophils % Seg Neuts % (Manual) Lymphocytes % (Manual) Seg Neutrophils # Seg Neutrophils # Man Lymphocytes # (Manual) Monocytes % (Manual) Eosinophils % (Manual) Monocytes # (Manual) Eosinophils # (Manual) D-Dimer Heparin Anti-Xa Level ABG pH POC ABG pCO2 POC ABG pO2 ABG pO2 ABG HCO3 ABG O2 Saturation ABG Base Excess ABG Hemoglobin ABG Oxyhemoglobin VBG pH ABG Sodium ABG Potassium ABG Glucose Oxyhemoglobin Sodium 134 L Potassium 5.5 H Chloride Carbon Dioxide BUN 97 H Creatinine 2.2 H Glucose 149 H POC Glucose 142 H 146 H Lactic Acid Calcium Ferritin AST Alkaline Phosphatase Magnesium 2.60 H Lactate Dehydrogenase Total Creatine Kinase CK-MB (CK-2) C-Reactive Protein Total Protein Albumin Troponin T HDL Cholesterol Arterial Blood Glucose Urine WBC (Auto) Urine Creatinine Urine Total Protein Phenytoin Coronavirus (PCR) Crossmatch 07/24/20 07/24/20 07/25/20 18:12 21:00 00:08 WBC RBC Hgb Hct MCHC RDW Lymph % (Auto) [place] % (Auto) Eos % (Auto) Lymph # [place] # Lymph # (Auto) [place] # (Auto) Eos # (Auto) Seg Neutrophils % Seg Neuts % (Manual) Lymphocytes % (Manual) Seg Neutrophils # Seg Neutrophils # Man Lymphocytes # (Manual) Monocytes % (Manual) Eosinophils % (Manual) Monocytes # (Manual) Eosinophils # (Manual) D-Dimer Heparin Anti-Xa Level ABG pH POC ABG pCO2 POC ABG pO2 ABG pO2 ABG HCO3 ABG O2 Saturation ABG Base Excess ABG Hemoglobin ABG Oxyhemoglobin VBG pH ABG Sodium ABG Potassium ABG Glucose Oxyhemoglobin Sodium Potassium Chloride Carbon Dioxide BUN Creatinine Glucose POC Glucose 182 H 170 H 129 H Lactic Acid Calcium Ferritin AST Alkaline Phosphatase Magnesium Lactate Dehydrogenase Total Creatine Kinase CK-MB (CK-2) C-Reactive Protein Total Protein Albumin Troponin T HDL Cholesterol Arterial Blood Glucose Urine WBC (Auto) Urine Creatinine Urine Total Protein Phenytoin Coronavirus (PCR) Crossmatch 07/25/20 07/25/20 07/25/20 04:24 04:24 12:19 WBC RBC 2.51 L Hgb 7.5 L Hct 22.3 L MCHC RDW 17.4 H Lymph % (Auto) [place] % (Auto) Eos % (Auto) Lymph # [place] # Lymph # (Auto) [place] # (Auto) Eos # (Auto) Seg Neutrophils % Seg Neuts % (Manual) Lymphocytes % (Manual) Seg Neutrophils # Seg Neutrophils # Man Lymphocytes # (Manual) Monocytes % (Manual) Eosinophils % (Manual) Monocytes # (Manual) Eosinophils # (Manual) D-Dimer Heparin Anti-Xa Level ABG pH POC ABG pCO2 POC ABG pO2 ABG pO2 ABG HCO3 ABG O2 Saturation ABG Base Excess ABG Hemoglobin ABG Oxyhemoglobin VBG pH ABG Sodium ABG Potassium ABG Glucose Oxyhemoglobin Sodium 132 L Potassium Chloride 95.1 L Carbon Dioxide 21 L BUN 95 H Creatinine 2.5 H Glucose 108 H POC Glucose 122 H Lactic Acid Calcium Ferritin AST Alkaline Phosphatase Magnesium Lactate Dehydrogenase Total Creatine Kinase CK-MB (CK-2) C-Reactive Protein Total Protein Albumin Troponin T HDL Cholesterol Arterial Blood Glucose Urine WBC (Auto) Urine Creatinine Urine Total Protein Phenytoin Coronavirus (PCR) Crossmatch 07/25/20 07/25/20 07/26/20 18:11 23:24 04:22 WBC RBC Hgb Hct MCHC RDW Lymph % (Auto) [place] % (Auto) Eos % (Auto) Lymph # [place] # Lymph # (Auto) [place] # (Auto) Eos # (Auto) Seg Neutrophils % Seg Neuts % (Manual) Lymphocytes % (Manual) Seg Neutrophils # Seg Neutrophils # Man Lymphocytes # (Manual) Monocytes % (Manual) Eosinophils % (Manual) Monocytes # (Manual) Eosinophils # (Manual) D-Dimer Heparin Anti-Xa Level ABG pH POC ABG pCO2 POC ABG pO2 ABG pO2 ABG HCO3 ABG O2 Saturation ABG Base Excess ABG Hemoglobin ABG Oxyhemoglobin VBG pH ABG Sodium ABG Potassium ABG Glucose Oxyhemoglobin Sodium 132 L Potassium Chloride 96.2 L Carbon Dioxide 21 L BUN 99 H Creatinine 2.5 H Glucose 132 H POC Glucose 137 H 117 H Lactic Acid Calcium 8.2 L Ferritin AST Alkaline Phosphatase Magnesium Lactate Dehydrogenase Total Creatine Kinase CK-MB (CK-2) C-Reactive Protein Total Protein Albumin Troponin T HDL Cholesterol Arterial Blood Glucose Urine WBC (Auto) Urine Creatinine Urine Total Protein Phenytoin Coronavirus (PCR) Crossmatch 07/26/20 07/26/20 07/26/20 05:58 12:21 17:31 WBC RBC Hgb Hct MCHC RDW Lymph % (Auto) [place] % (Auto) Eos % (Auto) Lymph # [place] # Lymph # (Auto) [place] # (Auto) Eos # (Auto) Seg Neutrophils % Seg Neuts % (Manual) Lymphocytes % (Manual) Seg Neutrophils # Seg Neutrophils # Man Lymphocytes # (Manual) Monocytes % (Manual) Eosinophils % (Manual) Monocytes # (Manual) Eosinophils # (Manual) D-Dimer Heparin Anti-Xa Level ABG pH POC ABG pCO2 POC ABG pO2 ABG pO2 ABG HCO3 ABG O2 Saturation ABG Base Excess ABG Hemoglobin ABG Oxyhemoglobin VBG pH ABG Sodium ABG Potassium ABG Glucose Oxyhemoglobin Sodium Potassium Chloride Carbon Dioxide BUN Creatinine Glucose POC Glucose 110 H 142 H 180 H Lactic Acid Calcium Ferritin AST Alkaline Phosphatase Magnesium Lactate Dehydrogenase Total Creatine Kinase CK-MB (CK-2) C-Reactive Protein Total Protein Albumin Troponin T HDL Cholesterol Arterial Blood Glucose Urine WBC (Auto) Urine Creatinine Urine Total Protein Phenytoin Coronavirus (PCR) Crossmatch 07/26/20 07/27/20 07/27/20 23:36 03:36 05:36 WBC RBC 2.49 L Hgb 7.3 L Hct 22.2 L MCHC RDW 17.2 H Lymph % (Auto) 11.0 L [place] % (Auto) 11.7 H Eos % (Auto) Lymph # [place] # Lymph # (Auto) 0.8 L [place] # (Auto) 0.9 H Eos # (Auto) Seg Neutrophils % 72.3 H Seg Neuts % (Manual) Lymphocytes % (Manual) Seg Neutrophils # Seg Neutrophils # Man Lymphocytes # (Manual) Monocytes % (Manual) Eosinophils % (Manual) Monocytes # (Manual) Eosinophils # (Manual) D-Dimer Heparin Anti-Xa Level ABG pH POC ABG pCO2 POC ABG pO2 ABG pO2 ABG HCO3 ABG O2 Saturation ABG Base Excess ABG Hemoglobin ABG Oxyhemoglobin VBG pH ABG Sodium ABG Potassium ABG Glucose Oxyhemoglobin Sodium Potassium Chloride Carbon Dioxide BUN Creatinine Glucose POC Glucose 162 H 118 H Lactic Acid Calcium Ferritin AST Alkaline Phosphatase Magnesium Lactate Dehydrogenase Total Creatine Kinase CK-MB (CK-2) C-Reactive Protein Total Protein Albumin Troponin T HDL Cholesterol Arterial Blood Glucose Urine WBC (Auto) Urine Creatinine Urine Total Protein Phenytoin Coronavirus (PCR) Crossmatch 07/27/20 07/27/20 07/27/20 05:36 12:19 17:36 WBC RBC Hgb Hct MCHC RDW Lymph % (Auto) [place] % (Auto) Eos % (Auto) Lymph # [place] # Lymph # (Auto) [place] # (Auto) Eos # (Auto) Seg Neutrophils % Seg Neuts % (Manual) Lymphocytes % (Manual) Seg Neutrophils # Seg Neutrophils # Man Lymphocytes # (Manual) Monocytes % (Manual) Eosinophils % (Manual) Monocytes # (Manual) Eosinophils # (Manual) D-Dimer Heparin Anti-Xa Level ABG pH POC ABG pCO2 POC ABG pO2 ABG pO2 ABG HCO3 ABG O2 Saturation ABG Base Excess ABG Hemoglobin ABG Oxyhemoglobin VBG pH ABG Sodium ABG Potassium ABG Glucose Oxyhemoglobin Sodium 135 L Potassium 5.3 H Chloride Carbon Dioxide 21 L BUN 103 H Creatinine 2.6 H Glucose 113 H POC Glucose 131 H 151 H Lactic Acid Calcium 8.1 L Ferritin AST Alkaline Phosphatase Magnesium Lactate Dehydrogenase Total Creatine Kinase CK-MB (CK-2) C-Reactive Protein Total Protein Albumin Troponin T HDL Cholesterol Arterial Blood Glucose Urine WBC (Auto) Urine Creatinine Urine Total Protein Phenytoin Coronavirus (PCR) Crossmatch 07/27/20 07/28/20 07/28/20 23:29 04:30 04:30 WBC RBC 2.50 L Hgb 7.3 L Hct 22.2 L MCHC RDW 17.3 H Lymph % (Auto) 8.7 L [place] % (Auto) 8.3 H Eos % (Auto) Lymph # [place] # Lymph # (Auto) 0.7 L [place] # (Auto) Eos # (Auto) Seg Neutrophils % 79.1 H Seg Neuts % (Manual) Lymphocytes % (Manual) Seg Neutrophils # Seg Neutrophils # Man Lymphocytes # (Manual) Monocytes % (Manual) Eosinophils % (Manual) Monocytes # (Manual) Eosinophils # (Manual) D-Dimer Heparin Anti-Xa Level ABG pH POC ABG pCO2 POC ABG pO2 ABG pO2 ABG HCO3 ABG O2 Saturation ABG Base Excess ABG Hemoglobin ABG Oxyhemoglobin VBG pH ABG Sodium ABG Potassium ABG Glucose Oxyhemoglobin Sodium 135 L Potassium 5.2 H Chloride 96.8 L Carbon Dioxide 20 L BUN 107 H Creatinine 2.9 H Glucose POC Glucose 124 H Lactic Acid Calcium 8.2 L Ferritin AST Alkaline Phosphatase Magnesium 2.70 H Lactate Dehydrogenase Total Creatine Kinase CK-MB (CK-2) C-Reactive Protein Total Protein Albumin Troponin T HDL Cholesterol Arterial Blood Glucose Urine WBC (Auto) Urine Creatinine Urine Total Protein Phenytoin Coronavirus (PCR) Crossmatch 07/28/20 07/29/20 07/29/20 17:35 00:11 06:45 WBC RBC Hgb Hct MCHC RDW Lymph % (Auto) [place] % (Auto) Eos % (Auto) Lymph # [place] # Lymph # (Auto) [place] # (Auto) Eos # (Auto) Seg Neutrophils % Seg Neuts % (Manual) Lymphocytes % (Manual) Seg Neutrophils # Seg Neutrophils # Man Lymphocytes # (Manual) Monocytes % (Manual) Eosinophils % (Manual) Monocytes # (Manual) Eosinophils # (Manual) D-Dimer Heparin Anti-Xa Level ABG pH POC ABG pCO2 POC ABG pO2 ABG pO2 ABG HCO3 ABG O2 Saturation ABG Base Excess ABG Hemoglobin ABG Oxyhemoglobin VBG pH ABG Sodium ABG Potassium ABG Glucose Oxyhemoglobin Sodium Potassium Chloride Carbon Dioxide BUN Creatinine Glucose POC Glucose 146 H 143 H 179 H Lactic Acid Calcium Ferritin AST Alkaline Phosphatase Magnesium Lactate Dehydrogenase Total Creatine Kinase CK-MB (CK-2) C-Reactive Protein Total Protein Albumin Troponin T HDL Cholesterol Arterial Blood Glucose Urine WBC (Auto) Urine Creatinine Urine Total Protein Phenytoin Coronavirus (PCR) Crossmatch 07/29/20 07/29/20 07/29/20 11:54 13:01 13:01 WBC RBC 2.40 L Hgb 7.1 L Hct 20.9 L MCHC RDW 17.5 H Lymph % (Auto) [place] % (Auto) Eos % (Auto) Lymph # [place] # Lymph # (Auto) [place] # (Auto) Eos # (Auto) Seg Neutrophils % Seg Neuts % (Manual) 86.0 H Lymphocytes % (Manual) 6.0 L Seg Neutrophils # Seg Neutrophils # Man 8.9 H Lymphocytes # (Manual) 0.6 L Monocytes % (Manual) 8.0 H Eosinophils % (Manual) Monocytes # (Manual) Eosinophils # (Manual) D-Dimer Heparin Anti-Xa Level ABG pH POC ABG pCO2 POC ABG pO2 ABG pO2 ABG HCO3 ABG O2 Saturation ABG Base Excess ABG Hemoglobin ABG Oxyhemoglobin VBG pH ABG Sodium ABG Potassium ABG Glucose Oxyhemoglobin Sodium 129 L Potassium Chloride 92.9 L Carbon Dioxide BUN 112 H Creatinine 3.0 H Glucose 142 H POC Glucose 170 H Lactic Acid Calcium 7.9 L Ferritin AST Alkaline Phosphatase Magnesium Lactate Dehydrogenase Total Creatine Kinase CK-MB (CK-2) C-Reactive Protein Total Protein Albumin Troponin T HDL Cholesterol Arterial Blood Glucose Urine WBC (Auto) Urine Creatinine Urine Total Protein Phenytoin Coronavirus (PCR) Crossmatch 07/29/20 07/30/20 07/30/20 22:45 05:01 11:45 WBC RBC Hgb Hct MCHC RDW Lymph % (Auto) [place] % (Auto) Eos % (Auto) Lymph # [place] # Lymph # (Auto) [place] # (Auto) Eos # (Auto) Seg Neutrophils % Seg Neuts % (Manual) Lymphocytes % (Manual) Seg Neutrophils # Seg Neutrophils # Man Lymphocytes # (Manual) Monocytes % (Manual) Eosinophils % (Manual) Monocytes # (Manual) Eosinophils # (Manual) D-Dimer Heparin Anti-Xa Level ABG pH POC ABG pCO2 POC ABG pO2 ABG pO2 ABG HCO3 ABG O2 Saturation ABG Base Excess ABG Hemoglobin ABG Oxyhemoglobin VBG pH ABG Sodium ABG Potassium ABG Glucose Oxyhemoglobin Sodium Potassium Chloride Carbon Dioxide BUN Creatinine Glucose POC Glucose 129 H 150 H 130 H Lactic Acid Calcium Ferritin AST Alkaline Phosphatase Magnesium Lactate Dehydrogenase Total Creatine Kinase CK-MB (CK-2) C-Reactive Protein Total Protein Albumin Troponin T HDL Cholesterol Arterial Blood Glucose Urine WBC (Auto) Urine Creatinine Urine Total Protein Phenytoin Coronavirus (PCR) Crossmatch 07/30/20 07/30/20 07/30/20 17:54 21:26 23:58 WBC RBC Hgb Hct MCHC RDW Lymph % (Auto) [place] % (Auto) Eos % (Auto) Lymph # [place] # Lymph # (Auto) [place] # (Auto) Eos # (Auto) Seg Neutrophils % Seg Neuts % (Manual) Lymphocytes % (Manual) Seg Neutrophils # Seg Neutrophils # Man Lymphocytes # (Manual) Monocytes % (Manual) Eosinophils % (Manual) Monocytes # (Manual) Eosinophils # (Manual) D-Dimer Heparin Anti-Xa Level ABG pH POC ABG pCO2 POC ABG pO2 ABG pO2 ABG HCO3 ABG O2 Saturation ABG Base Excess ABG Hemoglobin ABG Oxyhemoglobin VBG pH ABG Sodium ABG Potassium ABG Glucose Oxyhemoglobin Sodium Potassium Chloride Carbon Dioxide BUN Creatinine Glucose POC Glucose 143 H 124 H 142 H Lactic Acid Calcium Ferritin AST Alkaline Phosphatase Magnesium Lactate Dehydrogenase Total Creatine Kinase CK-MB (CK-2) C-Reactive Protein Total Protein Albumin Troponin T HDL Cholesterol Arterial Blood Glucose Urine WBC (Auto) Urine Creatinine Urine Total Protein Phenytoin Coronavirus (PCR) Crossmatch 07/31/20 07/31/20 07/31/20 05:43 11:35 18:07 WBC RBC Hgb Hct MCHC RDW Lymph % (Auto) [place] % (Auto) Eos % (Auto) Lymph # [place] # Lymph # (Auto) [place] # (Auto) Eos # (Auto) Seg Neutrophils % Seg Neuts % (Manual) Lymphocytes % (Manual) Seg Neutrophils # Seg Neutrophils # Man Lymphocytes # (Manual) Monocytes % (Manual) Eosinophils % (Manual) Monocytes # (Manual) Eosinophils # (Manual) D-Dimer Heparin Anti-Xa Level ABG pH POC ABG pCO2 POC ABG pO2 ABG pO2 ABG HCO3 ABG O2 Saturation ABG Base Excess ABG Hemoglobin ABG Oxyhemoglobin VBG pH ABG Sodium ABG Potassium ABG Glucose Oxyhemoglobin Sodium Potassium Chloride Carbon Dioxide BUN Creatinine Glucose POC Glucose 152 H 179 H 129 H Lactic Acid Calcium Ferritin AST Alkaline Phosphatase Magnesium Lactate Dehydrogenase Total Creatine Kinase CK-MB (CK-2) C-Reactive Protein Total Protein Albumin Troponin T HDL Cholesterol Arterial Blood Glucose Urine WBC (Auto) Urine Creatinine Urine Total Protein Phenytoin Coronavirus (PCR) Crossmatch 07/31/20 07/31/20 08/01/20 21:30 22:12 00:25 WBC RBC Hgb Hct MCHC RDW Lymph % (Auto) [place] % (Auto) Eos % (Auto) Lymph # [place] # Lymph # (Auto) [place] # (Auto) Eos # (Auto) Seg Neutrophils % Seg Neuts % (Manual) Lymphocytes % (Manual) Seg Neutrophils # Seg Neutrophils # Man Lymphocytes # (Manual) Monocytes % (Manual) Eosinophils % (Manual) Monocytes # (Manual) Eosinophils # (Manual) D-Dimer Heparin Anti-Xa Level ABG pH POC ABG pCO2 POC ABG pO2 ABG pO2 ABG HCO3 ABG O2 Saturation ABG Base Excess ABG Hemoglobin ABG Oxyhemoglobin VBG pH ABG Sodium ABG Potassium ABG Glucose Oxyhemoglobin Sodium Potassium Chloride Carbon Dioxide BUN Creatinine Glucose POC Glucose 143 H 122 H 134 H Lactic Acid Calcium Ferritin AST Alkaline Phosphatase Magnesium Lactate Dehydrogenase Total Creatine Kinase CK-MB (CK-2) C-Reactive Protein Total Protein Albumin Troponin T HDL Cholesterol Arterial Blood Glucose Urine WBC (Auto) Urine Creatinine Urine Total Protein Phenytoin Coronavirus (PCR) Crossmatch 08/01/20 08/01/20 08/01/20 04:43 05:41 12:23 WBC RBC Hgb Hct MCHC RDW Lymph % (Auto) [place] % (Auto) Eos % (Auto) Lymph # [place] # Lymph # (Auto) [place] # (Auto) Eos # (Auto) Seg Neutrophils % Seg Neuts % (Manual) Lymphocytes % (Manual) Seg Neutrophils # Seg Neutrophils # Man Lymphocytes # (Manual) Monocytes % (Manual) Eosinophils % (Manual) Monocytes # (Manual) Eosinophils # (Manual) D-Dimer Heparin Anti-Xa Level ABG pH POC ABG pCO2 POC ABG pO2 ABG pO2 ABG HCO3 ABG O2 Saturation ABG Base Excess ABG Hemoglobin ABG Oxyhemoglobin VBG pH ABG Sodium ABG Potassium ABG Glucose Oxyhemoglobin Sodium 128 L Potassium 5.8 H Chloride 90.5 L Carbon Dioxide 19 L BUN 122 H Creatinine 3.4 H Glucose 124 H POC Glucose 130 H 128 H Lactic Acid Calcium 8.0 L Ferritin AST Alkaline Phosphatase Magnesium Lactate Dehydrogenase Total Creatine Kinase CK-MB (CK-2) C-Reactive Protein Total Protein Albumin Troponin T HDL Cholesterol Arterial Blood Glucose Urine WBC (Auto) Urine Creatinine Urine Total Protein Phenytoin Coronavirus (PCR) Crossmatch 08/01/20 08/02/20 08/02/20 17:28 00:06 05:32 WBC RBC Hgb Hct MCHC RDW Lymph % (Auto) [place] % (Auto) Eos % (Auto) Lymph # [place] # Lymph # (Auto) [place] # (Auto) Eos # (Auto) Seg Neutrophils % Seg Neuts % (Manual) Lymphocytes % (Manual) Seg Neutrophils # Seg Neutrophils # Man Lymphocytes # (Manual) Monocytes % (Manual) Eosinophils % (Manual) Monocytes # (Manual) Eosinophils # (Manual) D-Dimer Heparin Anti-Xa Level ABG pH POC ABG pCO2 POC ABG pO2 ABG pO2 ABG HCO3 ABG O2 Saturation ABG Base Excess ABG Hemoglobin ABG Oxyhemoglobin VBG pH ABG Sodium ABG Potassium ABG Glucose Oxyhemoglobin Sodium Potassium Chloride Carbon Dioxide BUN Creatinine Glucose POC Glucose 121 H 128 H 177 H Lactic Acid Calcium Ferritin AST Alkaline Phosphatase Magnesium Lactate Dehydrogenase Total Creatine Kinase CK-MB (CK-2) C-Reactive Protein Total Protein Albumin Troponin T HDL Cholesterol Arterial Blood Glucose Urine WBC (Auto) Urine Creatinine Urine Total Protein Phenytoin Coronavirus (PCR) Crossmatch 08/02/20 08/02/20 08/03/20 11:25 12:34 00:08 WBC RBC Hgb Hct MCHC RDW Lymph % (Auto) [place] % (Auto) Eos % (Auto) Lymph # [place] # Lymph # (Auto) [place] # (Auto) Eos # (Auto) Seg Neutrophils % Seg Neuts % (Manual) Lymphocytes % (Manual) Seg Neutrophils # Seg Neutrophils # Man Lymphocytes # (Manual) Monocytes % (Manual) Eosinophils % (Manual) Monocytes # (Manual) Eosinophils # (Manual) D-Dimer Heparin Anti-Xa Level ABG pH 7.344 L POC ABG pCO2 POC ABG pO2 ABG pO2 101.1 H ABG HCO3 ABG O2 Saturation ABG Base Excess -4.5 L ABG Hemoglobin 6.6 L ABG Oxyhemoglobin VBG pH ABG Sodium ABG Potassium ABG Glucose Oxyhemoglobin Sodium Potassium Chloride Carbon Dioxide BUN Creatinine Glucose POC Glucose 196 H 141 H Lactic Acid Calcium Ferritin AST Alkaline Phosphatase Magnesium Lactate Dehydrogenase Total Creatine Kinase CK-MB (CK-2) C-Reactive Protein Total Protein Albumin Troponin T HDL Cholesterol Arterial Blood Glucose Urine WBC (Auto) Urine Creatinine Urine Total Protein Phenytoin Coronavirus (PCR) Crossmatch 08/03/20 08/03/20 08/03/20 04:38 04:38 04:38 WBC 14.3 H RBC 2.42 L Hgb 7.0 L Hct 21.5 L MCHC RDW 18.1 H Lymph % (Auto) [place] % (Auto) Eos % (Auto) Lymph # [place] # Lymph # (Auto) [place] # (Auto) Eos # (Auto) Seg Neutrophils % Seg Neuts % (Manual) Lymphocytes % (Manual) Seg Neutrophils # Seg Neutrophils # Man Lymphocytes # (Manual) Monocytes % (Manual) Eosinophils % (Manual) Monocytes # (Manual) Eosinophils # (Manual) D-Dimer Heparin Anti-Xa Level ABG pH POC ABG pCO2 POC ABG pO2 ABG pO2 ABG HCO3 ABG O2 Saturation ABG Base Excess ABG Hemoglobin ABG Oxyhemoglobin VBG pH ABG Sodium ABG Potassium ABG Glucose Oxyhemoglobin Sodium 130 L Potassium Chloride 90.1 L Carbon Dioxide 20 L BUN 105 H Creatinine 3.1 H Glucose 115 H POC Glucose Lactic Acid 0.40 L Calcium 8.2 L Ferritin AST Alkaline Phosphatase Magnesium Lactate Dehydrogenase Total Creatine Kinase CK-MB (CK-2) C-Reactive Protein Total Protein Albumin Troponin T HDL Cholesterol Arterial Blood Glucose Urine WBC (Auto) Urine Creatinine Urine Total Protein Phenytoin Coronavirus (PCR) Crossmatch 08/03/20 08/03/20 08/03/20 05:33 12:04 17:51 WBC RBC Hgb Hct MCHC RDW Lymph % (Auto) [place] % (Auto) Eos % (Auto) Lymph # [place] # Lymph # (Auto) [place] # (Auto) Eos # (Auto) Seg Neutrophils % Seg Neuts % (Manual) Lymphocytes % (Manual) Seg Neutrophils # Seg Neutrophils # Man Lymphocytes # (Manual) Monocytes % (Manual) Eosinophils % (Manual) Monocytes # (Manual) Eosinophils # (Manual) D-Dimer Heparin Anti-Xa Level ABG pH POC ABG pCO2 POC ABG pO2 ABG pO2 ABG HCO3 ABG O2 Saturation ABG Base Excess ABG Hemoglobin ABG Oxyhemoglobin VBG pH ABG Sodium ABG Potassium ABG Glucose Oxyhemoglobin Sodium Potassium Chloride Carbon Dioxide BUN Creatinine Glucose POC Glucose 117 H 115 H 123 H Lactic Acid Calcium Ferritin AST Alkaline Phosphatase Magnesium Lactate Dehydrogenase Total Creatine Kinase CK-MB (CK-2) C-Reactive Protein Total Protein Albumin Troponin T HDL Cholesterol Arterial Blood Glucose Urine WBC (Auto) Urine Creatinine Urine Total Protein Phenytoin Coronavirus (PCR) Crossmatch 08/03/20 08/04/20 08/04/20 23:25 01:41 05:34 WBC RBC 2.20 L Hgb 6.5 L Hct 19.5 L* MCHC RDW 18.5 H Lymph % (Auto) 9.2 L [place] % (Auto) 9.8 H Eos % (Auto) Lymph # [place] # Lymph # (Auto) 0.8 L [place] # (Auto) Eos # (Auto) Seg Neutrophils % 77.7 H Seg Neuts % (Manual) Lymphocytes % (Manual) Seg Neutrophils # Seg Neutrophils # Man Lymphocytes # (Manual) Monocytes % (Manual) Eosinophils % (Manual) Monocytes # (Manual) Eosinophils # (Manual) D-Dimer Heparin Anti-Xa Level ABG pH POC ABG pCO2 POC ABG pO2 ABG pO2 ABG HCO3 ABG O2 Saturation ABG Base Excess ABG Hemoglobin ABG Oxyhemoglobin VBG pH ABG Sodium ABG Potassium ABG Glucose Oxyhemoglobin Sodium Potassium Chloride Carbon Dioxide BUN Creatinine Glucose POC Glucose 122 H 112 H Lactic Acid Calcium Ferritin AST Alkaline Phosphatase Magnesium Lactate Dehydrogenase Total Creatine Kinase CK-MB (CK-2) C-Reactive Protein Total Protein Albumin Troponin T HDL Cholesterol Arterial Blood Glucose Urine WBC (Auto) Urine Creatinine Urine Total Protein Phenytoin Coronavirus (PCR) Crossmatch 08/04/20 08/04/20 08/05/20 12:19 17:42 00:25 WBC RBC Hgb Hct MCHC RDW Lymph % (Auto) [place] % (Auto) Eos % (Auto) Lymph # [place] # Lymph # (Auto) [place] # (Auto) Eos # (Auto) Seg Neutrophils % Seg Neuts % (Manual) Lymphocytes % (Manual) Seg Neutrophils # Seg Neutrophils # Man Lymphocytes # (Manual) Monocytes % (Manual) Eosinophils % (Manual) Monocytes # (Manual) Eosinophils # (Manual) D-Dimer Heparin Anti-Xa Level ABG pH POC ABG pCO2 POC ABG pO2 ABG pO2 ABG HCO3 ABG O2 Saturation ABG Base Excess ABG Hemoglobin ABG Oxyhemoglobin VBG pH ABG Sodium ABG Potassium ABG Glucose Oxyhemoglobin Sodium Potassium Chloride Carbon Dioxide BUN Creatinine Glucose POC Glucose 108 H 113 H 119 H Lactic Acid Calcium Ferritin AST Alkaline Phosphatase Magnesium Lactate Dehydrogenase Total Creatine Kinase CK-MB (CK-2) C-Reactive Protein Total Protein Albumin Troponin T HDL Cholesterol Arterial Blood Glucose Urine WBC (Auto) Urine Creatinine Urine Total Protein Phenytoin Coronavirus (PCR) Crossmatch 08/05/20 08/05/20 08/05/20 05:24 05:35 05:35 WBC RBC 2.13 L Hgb 6.2 L Hct 18.9 L* MCHC RDW 18.7 H Lymph % (Auto) 10.0 L [place] % (Auto) 8.5 H Eos % (Auto) Lymph # [place] # Lymph # (Auto) 0.8 L [place] # (Auto) Eos # (Auto) Seg Neutrophils % 78.1 H Seg Neuts % (Manual) Lymphocytes % (Manual) Seg Neutrophils # Seg Neutrophils # Man Lymphocytes # (Manual) Monocytes % (Manual) Eosinophils % (Manual) Monocytes # (Manual) Eosinophils # (Manual) D-Dimer Heparin Anti-Xa Level ABG pH POC ABG pCO2 POC ABG pO2 ABG pO2 ABG HCO3 ABG O2 Saturation ABG Base Excess ABG Hemoglobin ABG Oxyhemoglobin VBG pH ABG Sodium ABG Potassium ABG Glucose Oxyhemoglobin Sodium 135 L Potassium Chloride 96.3 L Carbon Dioxide BUN 89 H Creatinine 2.8 H Glucose 116 H POC Glucose 138 H Lactic Acid Calcium 7.5 L Ferritin AST 53 H Alkaline Phosphatase 501 H Magnesium Lactate Dehydrogenase Total Creatine Kinase CK-MB (CK-2) C-Reactive Protein Total Protein 6.1 L Albumin 2.2 L Troponin T HDL Cholesterol Arterial Blood Glucose Urine WBC (Auto) Urine Creatinine Urine Total Protein Phenytoin Coronavirus (PCR) Crossmatch 08/05/20 08/05/20 08/05/20 09:15 12:17 18:00 WBC RBC Hgb Hct MCHC RDW Lymph % (Auto) [place] % (Auto) Eos % (Auto) Lymph # [place] # Lymph # (Auto) [place] # (Auto) Eos # (Auto) Seg Neutrophils % Seg Neuts % (Manual) Lymphocytes % (Manual) Seg Neutrophils # Seg Neutrophils # Man Lymphocytes # (Manual) Monocytes % (Manual) Eosinophils % (Manual) Monocytes # (Manual) Eosinophils # (Manual) D-Dimer Heparin Anti-Xa Level ABG pH POC ABG pCO2 POC ABG pO2 ABG pO2 ABG HCO3 ABG O2 Saturation ABG Base Excess ABG Hemoglobin ABG Oxyhemoglobin VBG pH ABG Sodium ABG Potassium ABG Glucose Oxyhemoglobin Sodium Potassium Chloride Carbon Dioxide BUN Creatinine Glucose POC Glucose 126 H 143 H Lactic Acid Calcium Ferritin AST Alkaline Phosphatase Magnesium Lactate Dehydrogenase Total Creatine Kinase CK-MB (CK-2) C-Reactive Protein Total Protein Albumin Troponin T HDL Cholesterol Arterial Blood Glucose Urine WBC (Auto) Urine Creatinine Urine Total Protein Phenytoin Coronavirus (PCR) Crossmatch See Detail 08/06/20 08/06/20 08/07/20 00:50 04:30 04:40 WBC RBC 2.43 L 2.48 L Hgb 7.2 L 7.4 L Hct 21.7 L 22.1 L MCHC RDW 18.1 H 18.1 H Lymph % (Auto) 9.9 L 11.7 L [place] % (Auto) 10.5 H 8.6 H Eos % (Auto) Lymph # [place] # Lymph # (Auto) 0.7 L 0.9 L [place] # (Auto) Eos # (Auto) Seg Neutrophils % 75.1 H 76.1 H Seg Neuts % (Manual) Lymphocytes % (Manual) Seg Neutrophils # Seg Neutrophils # Man Lymphocytes # (Manual) Monocytes % (Manual) Eosinophils % (Manual) Monocytes # (Manual) Eosinophils # (Manual) D-Dimer Heparin Anti-Xa Level ABG pH POC ABG pCO2 POC ABG pO2 ABG pO2 ABG HCO3 ABG O2 Saturation ABG Base Excess ABG Hemoglobin ABG Oxyhemoglobin VBG pH ABG Sodium ABG Potassium ABG Glucose Oxyhemoglobin Sodium Potassium Chloride Carbon Dioxide BUN Creatinine Glucose POC Glucose 117 H Lactic Acid Calcium Ferritin AST Alkaline Phosphatase Magnesium Lactate Dehydrogenase Total Creatine Kinase CK-MB (CK-2) C-Reactive Protein Total Protein Albumin Troponin T HDL Cholesterol Arterial Blood Glucose Urine WBC (Auto) Urine Creatinine Urine Total Protein Phenytoin Coronavirus (PCR) Crossmatch 08/07/20 08/07/20 08/08/20 05:44 06:00 00:03 WBC RBC Hgb Hct MCHC RDW Lymph % (Auto) [place] % (Auto) Eos % (Auto) Lymph # [place] # Lymph # (Auto) [place] # (Auto) Eos # (Auto) Seg Neutrophils % Seg Neuts % (Manual) Lymphocytes % (Manual) Seg Neutrophils # Seg Neutrophils # Man Lymphocytes # (Manual) Monocytes % (Manual) Eosinophils % (Manual) Monocytes # (Manual) Eosinophils # (Manual) D-Dimer Heparin Anti-Xa Level ABG pH POC ABG pCO2 POC ABG pO2 ABG pO2 ABG HCO3 ABG O2 Saturation ABG Base Excess ABG Hemoglobin ABG Oxyhemoglobin VBG pH ABG Sodium ABG Potassium ABG Glucose Oxyhemoglobin Sodium 132 L Potassium 3.3 L Chloride 92.8 L Carbon Dioxide BUN 64 H Creatinine 2.4 H Glucose POC Glucose 58 L 125 H Lactic Acid Calcium 7.0 L Ferritin AST Alkaline Phosphatase Magnesium Lactate Dehydrogenase Total Creatine Kinase CK-MB (CK-2) C-Reactive Protein Total Protein Albumin Troponin T HDL Cholesterol Arterial Blood Glucose Urine WBC (Auto) Urine Creatinine Urine Total Protein Phenytoin Coronavirus (PCR) Crossmatch 08/08/20 08/08/20 08/08/20 12:58 15:00 15:00 WBC RBC 2.36 L Hgb 7.1 L Hct 21.4 L MCHC RDW 18.3 H Lymph % (Auto) [place] % (Auto) Eos % (Auto) Lymph # [place] # Lymph # (Auto) [place] # (Auto) Eos # (Auto) Seg Neutrophils % Seg Neuts % (Manual) Lymphocytes % (Manual) Seg Neutrophils # Seg Neutrophils # Man Lymphocytes # (Manual) Monocytes % (Manual) Eosinophils % (Manual) Monocytes # (Manual) Eosinophils # (Manual) D-Dimer Heparin Anti-Xa Level ABG pH POC ABG pCO2 POC ABG pO2 ABG pO2 ABG HCO3 ABG O2 Saturation ABG Base Excess ABG Hemoglobin ABG Oxyhemoglobin VBG pH ABG Sodium ABG Potassium ABG Glucose Oxyhemoglobin Sodium Potassium Chloride Carbon Dioxide BUN Creatinine Glucose POC Glucose 134 H Lactic Acid Calcium Ferritin AST Alkaline Phosphatase Magnesium Lactate Dehydrogenase Total Creatine Kinase CK-MB (CK-2) C-Reactive Protein Total Protein Albumin Troponin T HDL Cholesterol Arterial Blood Glucose Urine WBC (Auto) Urine Creatinine Urine Total Protein Phenytoin 4.7 L Coronavirus (PCR) Crossmatch 08/08/20 08/08/20 08/09/20 15:00 17:39 00:00 WBC RBC Hgb Hct MCHC RDW Lymph % (Auto) [place] % (Auto) Eos % (Auto) Lymph # [place] # Lymph # (Auto) [place] # (Auto) Eos # (Auto) Seg Neutrophils % Seg Neuts % (Manual) Lymphocytes % (Manual) Seg Neutrophils # Seg Neutrophils # Man Lymphocytes # (Manual) Monocytes % (Manual) Eosinophils % (Manual) Monocytes # (Manual) Eosinophils # (Manual) D-Dimer Heparin Anti-Xa Level ABG pH POC ABG pCO2 POC ABG pO2 ABG pO2 ABG HCO3 ABG O2 Saturation ABG Base Excess ABG Hemoglobin ABG Oxyhemoglobin VBG pH ABG Sodium ABG Potassium ABG Glucose Oxyhemoglobin Sodium 130 L Potassium 3.1 L Chloride 91.5 L Carbon Dioxide BUN 52 H Creatinine 2.3 H Glucose 135 H POC Glucose 131 H 129 H Lactic Acid Calcium 7.3 L Ferritin AST Alkaline Phosphatase Magnesium Lactate Dehydrogenase Total Creatine Kinase CK-MB (CK-2) C-Reactive Protein Total Protein Albumin Troponin T HDL Cholesterol Arterial Blood Glucose Urine WBC (Auto) Urine Creatinine Urine Total Protein Phenytoin Coronavirus (PCR) Crossmatch 11/10/2808/09/20 08/11/20 05:05 07:49 03:55 WBC RBC 2.22 L Hgb 6.9 L Hct 20.1 L MCHC RDW 18.3 H Lymph % (Auto) 11.2 L [place] % (Auto) 8.8 H Eos % (Auto) Lymph # [place] # Lymph # (Auto) 0.8 L [place] # (Auto) Eos # (Auto) Seg Neutrophils % 76.3 H Seg Neuts % (Manual) Lymphocytes % (Manual) Seg Neutrophils # Seg Neutrophils # Man Lymphocytes # (Manual) Monocytes % (Manual) Eosinophils % (Manual) Monocytes # (Manual) Eosinophils # (Manual) D-Dimer Heparin Anti-Xa Level ABG pH POC ABG pCO2 POC ABG pO2 ABG pO2 ABG HCO3 ABG O2 Saturation ABG Base Excess ABG Hemoglobin ABG Oxyhemoglobin VBG pH ABG Sodium ABG Potassium ABG Glucose Oxyhemoglobin Sodium 130 L Potassium Chloride 90.1 L Carbon Dioxide BUN 56 H Creatinine 2.4 H Glucose 104 H POC Glucose 111 H Lactic Acid Calcium 7.4 L Ferritin AST Alkaline Phosphatase Magnesium Lactate Dehydrogenase Total Creatine Kinase CK-MB (CK-2) C-Reactive Protein Total Protein Albumin Troponin T HDL Cholesterol Arterial Blood Glucose Urine WBC (Auto) Urine Creatinine Urine Total Protein Phenytoin Coronavirus (PCR) Crossmatch 08/11/20 08/11/20 08/11/20 03:55 05:39 23:46 WBC RBC Hgb Hct MCHC RDW Lymph % (Auto) [place] % (Auto) Eos % (Auto) Lymph # [place] # Lymph # (Auto) [place] # (Auto) Eos # (Auto) Seg Neutrophils % Seg Neuts % (Manual) Lymphocytes % (Manual) Seg Neutrophils # Seg Neutrophils # Man Lymphocytes # (Manual) Monocytes % (Manual) Eosinophils % (Manual) Monocytes # (Manual) Eosinophils # (Manual) D-Dimer Heparin Anti-Xa Level ABG pH POC ABG pCO2 POC ABG pO2 ABG pO2 ABG HCO3 ABG O2 Saturation ABG Base Excess ABG Hemoglobin ABG Oxyhemoglobin VBG pH ABG Sodium ABG Potassium ABG Glucose Oxyhemoglobin Sodium 135 L Potassium Chloride 94.5 L Carbon Dioxide BUN 48 H Creatinine 2.2 H Glucose 53 L POC Glucose < 40 L 131 H Lactic Acid Calcium 7.5 L Ferritin AST Alkaline Phosphatase Magnesium Lactate Dehydrogenase Total Creatine Kinase CK-MB (CK-2) C-Reactive Protein Total Protein Albumin Troponin T HDL Cholesterol Arterial Blood Glucose Urine WBC (Auto) Urine Creatinine Urine Total Protein Phenytoin Coronavirus (PCR) Crossmatch 08/12/20 08/12/20 05:39 12:15 WBC RBC Hgb Hct MCHC RDW Lymph % (Auto) [place] % (Auto) Eos % (Auto) Lymph # [place] # Lymph # (Auto) [place] # (Auto) Eos # (Auto) Seg Neutrophils % Seg Neuts % (Manual) Lymphocytes % (Manual) Seg Neutrophils # Seg Neutrophils # Man Lymphocytes # (Manual) Monocytes % (Manual) Eosinophils % (Manual) Monocytes # (Manual) Eosinophils # (Manual) D-Dimer Heparin Anti-Xa Level ABG pH POC ABG pCO2 POC ABG pO2 ABG pO2 ABG HCO3 ABG O2 Saturation ABG Base Excess ABG Hemoglobin ABG Oxyhemoglobin VBG pH ABG Sodium ABG Potassium ABG Glucose Oxyhemoglobin Sodium Potassium Chloride Carbon Dioxide BUN Creatinine Glucose POC Glucose 120 H 129 H Lactic Acid Calcium Ferritin AST Alkaline Phosphatase Magnesium Lactate Dehydrogenase Total Creatine Kinase CK-MB (CK-2) C-Reactive Protein Total Protein Albumin Troponin T HDL Cholesterol Arterial Blood Glucose Urine WBC (Auto) Urine Creatinine Urine Total Protein Phenytoin Coronavirus (PCR) Crossmatch Chest x-ray: pending Allied health notes reviewed: nursing
[2020-08-12] MEDS: INSULIN GLARGINE 100 UNITS/ML SUB-Q SCH (21:48)
[2020-08-13] MEDS: INSULIN LISPRO 100 UNIT/ML VIAL 3 mL SUB-Q SCH ×4 (03:19→18:05)
[2020-08-13] MEDS: TORSEMIDE 100 MG TAB PO SCH (05:51)
[2020-08-13] MEDS: SODIUM CHLORIDE 0.9% IV SCH ×3 (05:51→21:32)
[2020-08-13] MEDS: PHENYTOIN IV SCH ×3 (05:51→21:32)
[2020-08-13] MEDS: HEPARIN 5,000 UNIT/1 ML VIAL SUB-Q SCH ×3 (05:51→21:40)
--- NOTE | 2020-08-13 08:46 | Progress Note ---
Assessment and Plan Assessment and plan: 05/28/2020 COVID-19 test positive 06/29/2020 COVID-19 test positive 07/14/2020 COVID-19 test positive 08/09/2020 COVID-19 test negative DNR status Awaiting DC home with hospice[pending family decision] --s/p cardiopulmonary arrest on admission, 06/26 and 07/01, EF 45-50% on 2d echo, medical Mx per cardiology --Bradycardia: Patient is on dopamine and epinephrine for bradycardia beta-hugh discontinued, Heart rate is in the 60s to 70s --Anoxic brain injury, neurology consulted, neuro requested MRI brain, EEG MRI brain could not be done due to body habitus, --Acute hypoxemic respiratory failure; vent dependent intubated on admission, extubated on 06/12/20 then placed on high flow o2 patient developed another respiratory arrest on 06/26 - reintubated Patient not tolerating weaning parameters CC following, Surgery evaluated the patient for trach and PEG COVID-19 test positive x3, trach and PEG pending -- Hypertension; well controlled Continue amlodipine, clonidine and hydralazine and minoxidil, closely monitor blood pressures, PRN labetalol --Seizures seizure precautions; continue Keppra, and Dilantin EEG showed epileptiform discharges per review of neurology note --Rectal bleeding; resolved --Acute blood loss anemia; total 4 units PRBC transfused monitor H&H, GI following, no plans of endoscopy --Severe sepsis; completed antibiotics per ID persistently positive for COVID-19 and treated for Klebsiella pneumoniae --COVID-19 b/l PNA Completed remdesivir on 06/02 Completed dexamethasone - Last dose 06/07 COVID 19 test positive x 3 during this admission --Superficial left cephalic vein DVT/elevated D-dimers[COVID 19] Patient initially started on heparin drip from 05/29/20 D-dimers improved [phone] treated with Eliquis 5 mg twice a day for 1 week[per ID] stop date 06/26/2020 -- Acute toxic metabolic encephalopathy, POA likely from sepsis and s/p cardiac arrest with possible anoxic injury -- Acute renal failure: Management per nephrology Initiated HD. HD as needed --Klebsiella pneumonia: s/p 5 days of cefepime on 07/04/2020 --Acute on chronic systolic heart failure Cardiology following. Ef 45% --Transaminitis. Resolved etiology likely from COVID-19 --Hyperkalemia; improved --Hyponatremia Monitor electrolytes, now on HD --Shock; resolved -- DVT prophylaxis Eliquis, SCD to bilateral lower extremities while in bed -- Advance care planning Patient is critically ill with multiple medical problems Poor prognosis. 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 The aggregate critical care time was [34] minutes. This time is in addition to time spent performing reported procedures but includes the following: [x] Data Review and interpretation [x] Patient assessment and monitoring of vital signs [x] Documentation [x] Medication orders and management 08/13/20; patient is DNR status now, family considering home with home hospice, initially Home hospice evaluated the patient However family did not make the decision, awaiting DC home with home hospice pending family's decision Brief History: 64 YO Female with a medical history of HTN, Diastolic CHF, Pulmonary HTN, DM, Obesity Hypoventilation Syndrome presents to ED for evaluation of shortness of breath. As per staff, the EMS was notified for difficulty breathing. Upon arrival to the patient's home the patient was found to be in distress and was subsequently transported to [facility] for further evaluation and care. In route to [facility] the patient developed cardiac arrest and was treated in accordance with ACLS protocol with return of ROSC. Patient was seen and evaluated in the emergency department and was intubated and placed on ventilatory support. Patient admitted to ICU. Critical care team consulted in ED. She was found to have COVID-19 infection and was started on steroids and remdesivir. ID was consulted. Cardiology was consulted for her systolic heart failure and cardiac arrest. Patient completed treatment for COVID-19, then develop superimposed bacterial pneumonia with Klebsiella. She is now extubated, 06/12/2020 but remains confused and requiring high flow O2 and intermittent BiPAP. Patient had another cardiac arrest reintubated 06/26/2020, currently in ICU vent dependent, unable to do trach and PEG due to persistent COVID-19 positive state, as well as anoxic brain injury, unable to get MRI , neurology following. History Interval history: I have seen and examined the patient at the bedside this morning Isolation precautions, PPE protocols strictly followed Clinically no change, patient remains intubated on ventilatory support Unresponsive, morbidly obese Vital signs noted Hospitalist Physical - Constitutional Vitals: Temp Pulse Resp BP Pulse Ox 98.8 F 70 12 142/57 99 08/13/20 04:00 08/13/20 06:31 08/13/20 06:31 08/13/20 06:31 08/13/20 06:31 General appearance: Present: no acute distress, well-nourished, obese (Morbidly obese), other (Intubated on ventilatory support) - EENT Eyes: Present: PERRL, EOM intact - Neck Neck: Present: supple, normal ROM - Respiratory Respiratory effort: normal Respiratory: bilateral: diminished, negative: rales, rhonchi, wheezing - Cardiovascular Rhythm: regular Heart Sounds: Present: S1 & S2 - Extremities Extremities: no ischemia, No edema - Abdominal General gastrointestinal: soft, non-tender, non-distended, normal bowel sounds - Integumentary Integumentary: Present: clear, warm - Psychiatric Psychiatric: other (Unresponsive on vent) - Neurologic Neurologic: other (Unresponsive on vent) HEART Score - HEART Score Troponin: Troponin T 0.067 ng/mL (0.00-0.029) H 07/01/20 06:01 Results - Labs CBC & Chem 7: 08/11/20 03:55 08/11/20 03:55 Labs: Laboratory Last Values WBC 7.2 K/mm3 (4.5-11.0) 08/11/20 03:55 RBC 2.22 M/mm3 (3.65-5.03) L 08/11/20 03:55 Hgb 6.9 gm/dl (10.1-14.3) L 08/11/20 03:55 Hct 20.1 % (30.3-42.9) L 08/11/20 03:55 MCV 90 fl (79-97) 08/11/20 03:55 MCH 31 pg (28-32) 08/11/20 03:55 MCHC 34 % (30-34) 08/11/20 03:55 RDW 18.3 % (13.2-15.2) H 08/11/20 03:55 Plt Count 300 K/mm3 (140-440) 08/11/20 03:55 Lymph % (Auto) 11.2 % (13.4-35.0) L 08/11/20 03:55 Nicholas % (Auto) 8.8 % (0.0-7.3) H 08/11/20 03:55 Eos % (Auto) 3.0 % (0.0-4.3) 08/11/20 03:55 Baso % (Auto) 0.7 % (0.0-1.8) 08/11/20 03:55 Lymph # (Auto) 0.8 K/mm3 (1.2-5.4) L 08/11/20 03:55 Nicholas # (Auto) 0.6 K/mm3 (0.0-0.8) 08/11/20 03:55 Eos # (Auto) 0.2 K/mm3 (0.0-0.4) 08/11/20 03:55 Baso # (Auto) 0.1 K/mm3 (0.0-0.1) 08/11/20 03:55 Add Manual Diff Complete 07/29/20 13:01 Total Counted 100 07/29/20 13:01 Seg Neutrophils % 76.3 % (40.0-70.0) H 08/11/20 03:55 Seg Neuts % (Manual) 86.0 % (40.0-70.0) H 07/29/20 13:01 Band Neutrophils % 0 % 07/29/20 13:01 Lymphocytes % (Manual) 6.0 % (13.4-35.0) L 07/29/20 13:01 Reactive Lymphs % (Man) 0 % 07/29/20 13:01 Monocytes % (Manual) 8.0 % (0.0-7.3) H 07/29/20 13:01 Eosinophils % (Manual) 0 % (0.0-4.3) 07/29/20 13:01 Basophils % (Manual) 0 % (0.0-1.8) 07/29/20 13:01 Metamyelocytes % 0 % 07/29/20 13:01 Myelocytes % 0 % 07/29/20 13:01 Promyelocytes % 0 % 07/29/20 13:01 Blast Cells % 0 % 07/29/20 13:01 Nucleated RBC % Not Reportable 07/29/20 13:01 Seg Neutrophils # 5.5 K/mm3 (1.8-7.7) 08/11/20 03:55 Seg Neutrophils # Man 8.9 K/mm3 (1.8-7.7) H 07/29/20 13:01 Band Neutrophils # 0.0 K/mm3 07/29/20 13:01 Lymphocytes # (Manual) 0.6 K/mm3 (1.2-5.4) L 07/29/20 13:01 Abs React Lymphs (Man) 0.0 K/mm3 07/29/20 13:01 Monocytes # (Manual) 0.8 K/mm3 (0.0-0.8) 07/29/20 13:01 Eosinophils # (Manual) 0.0 K/mm3 (0.0-0.4) 07/29/20 13:01 Basophils # (Manual) 0.0 K/mm3 (0.0-0.1) 07/29/20 13:01 Metamyelocytes # 0.0 K/mm3 07/29/20 13:01 Myelocytes # 0.0 K/mm3 07/29/20 13:01 Promyelocytes # 0.0 K/mm3 07/29/20 13:01 Blast Cells # 0.0 K/mm3 07/29/20 13:01 WBC Morphology Not Reportable 07/29/20 13:01 Hypersegmented Neuts Not Reportable 07/29/20 13:01 Hyposegmented Neuts Not Reportable 07/29/20 13:01 Hypogranular Neuts Not Reportable 07/29/20 13:01 Smudge Cells Not Reportable 07/29/20 13:01 Toxic Granulation Not Reportable 07/29/20 13:01 Toxic Vacuolation Not Reportable 07/29/20 13:01 Dohle Bodies Not Reportable 07/29/20 13:01 Pelger-Huet Anomaly Not Reportable 07/29/20 13:01 Sanjuanita Rods Not Reportable 07/29/20 13:01 Platelet Estimate Consistent w auto 07/29/20 13:01 Clumped Platelets Not Reportable 07/29/20 13:01 Plt Clumps, EDTA Not Reportable 07/29/20 13:01 Large Platelets Not Reportable 07/29/20 13:01 Giant Platelets Not Reportable 07/29/20 13:01 Platelet Satelliting Not Reportable 07/29/20 13:01 Plt Morphology Comment Not Reportable 07/29/20 13:01 RBC Morphology Normal 07/29/20 13:01 Dimorphic RBCs Not Reportable 07/29/20 13:01 Polychromasia Not Reportable 07/29/20 13:01 Hypochromasia Not Reportable 07/29/20 13:01 Poikilocytosis Not Reportable 07/29/20 13:01 Anisocytosis Not Reportable 07/29/20 13:01 Microcytosis Not Reportable 07/29/20 13:01 Macrocytosis Not Reportable 07/29/20 13:01 Spherocytes Not Reportable 07/29/20 13:01 Pappenheimer Bodies Not Reportable 07/29/20 13:01 Sickle Cells Not Reportable 07/29/20 13:01 Target Cells Not Reportable 07/29/20 13:01 Tear Drop Cells Not Reportable 07/29/20 13:01 Ovalocytes Not Reportable 07/29/20 13:01 Helmet Cells Not Reportable 07/29/20 13:01 [place] Bodies Not Reportable 07/29/20 13:01 [place] Rings Not Reportable 07/29/20 13:01 [place] Cells Not Reportable 07/29/20 13:01 Bite Cells Not Reportable 07/29/20 13:01 Crenated Cell Not Reportable 07/29/20 13:01 Elliptocytes Not Reportable 07/29/20 13:01 Acanthocytes (Spur) Not Reportable 07/29/20 13:01 Rouleaux Not Reportable 07/29/20 13:01 Hemoglobin C Crystals Not Reportable 07/29/20 13:01 Schistocytes Not Reportable 07/29/20 13:01 Malaria parasites Not Reportable 07/29/20 13:01 Kev Bodies Not Reportable 07/29/20 13:01 Hem Pathologist Commnt No 07/29/20 13:01 PT 14.2 Sec. (12.2-14.9) 05/29/20 15:10 INR 1.08 (0.87-1.13) 05/29/20 15:10 APTT 27.2 Sec. (24.2-36.6) 05/29/20 15:10 D-Dimer 2310.15 ng/mlDDU (0-234) H 06/29/20 14:45 Heparin Anti-Xa Level 0.34 U.I./ml (0.3-0.7) 06/19/20 10:46 ABG pH 7.344 pH Units (7.350-7.450) L 08/02/20 11:25 POC ABG pCO2 44.1 mmHg (32.0-48.0) 07/18/20 04:24 ABG pCO2 39.0 mm Hg 08/02/20 11:25 ABG Oxyhemoglobin 92.6 (94-98) L 06/23/20 12:34 POC ABG pO2 86.8 mmHg (83-108) 07/18/20 04:24 ABG pO2 101.1 mm Hg (80.0-90.0) H 08/02/20 11:25 POC ABG HCO3 25.6 07/18/20 04:24 ABG HCO3 20.8 mmol/L (20.0-26.0) 08/02/20 11:25 ABG O2 Saturation 97.5 % (95.0-99.0) 08/02/20 11:25 ABG O2 Content 9.1 (0.0-44) 08/02/20 11:25 POC ABG Base Excess 0.4 07/18/20 04:24 ABG Base Excess -4.5 mmol/L (-2.0-3.0) L 08/02/20 11:25 ABG Hemoglobin 6.6 gm/dl (12.0-16.0) L 08/02/20 11:25 ABG Carboxyhemoglobin 1.8 % (0.0-5.0) 08/02/20 11:25 ABG Methemoglobin 0.2 % (0.0-1.5) 08/02/20 11:25 VBG pH 7.152 (7.320-7.420) L* 05/28/20 13:47 ABG Sodium 131.6 mmol/L (136.0-145.0) L 07/18/20 04:24 ABG Potassium 4.9 mmol/L (3.40-4.50) H 07/18/20 04:24 ABG Chloride 104.0 mmol/L (98-107) 07/18/20 04:24 ABG Glucose 131 mg/dL (65-95) H 07/18/20 04:24 Carboxyhemoglobin 0.5 (0.5-1.5) 06/23/20 12:34 Oxyhemoglobin 95.5 % (95.0-99.0) 08/02/20 11:25 FiO2 30 % 08/02/20 11:25 Sodium 135 mmol/L (137-145) L 08/11/20 03:55 Potassium 3.7 mmol/L (3.6-5.0) 08/11/20 03:55 Chloride 94.5 mmol/L (98-107) L 08/11/20 03:55 Carbon Dioxide 27 mmol/L (22-30) 08/11/20 03:55 Anion Gap 17 mmol/L 08/11/20 03:55 BUN 48 mg/dL (7-17) H 08/11/20 03:55 Creatinine 2.2 mg/dL (0.6-1.2) H 08/11/20 03:55 Estimated GFR 23 ml/min 08/11/20 03:55 BUN/Creatinine Ratio 22 % 08/11/20 03:55 Glucose 53 mg/dL (65-100) L 08/11/20 03:55 POC Glucose 114 mg/dL (70-105) H 08/13/20 06:00 Lactic Acid 0.40 mmol/L (0.7-2.0) L 08/03/20 04:38 Calcium 7.5 mg/dL (8.4-10.2) L 08/11/20 03:55 Ferritin 223.6 ng/mL (10.0-200.0) H 06/29/20 14:45 Magnesium 2.70 mg/dL (1.7-2.3) H 07/28/20 04:30 Lactate Dehydrogenase 367 units/L (91-180) H 06/29/20 14:45 Total Bilirubin 0.20 mg/dL (0.1-1.2) 08/05/20 05:35 AST 53 units/L (5-40) H 08/05/20 05:35 ALT 44 units/L (7-56) 08/05/20 05:35 Alkaline Phosphatase 501 units/L (35-129) H 08/05/20 05:35 C-Reactive Protein 3.60 mg/dL (0.00-1.30) H 06/29/20 14:45 Total Creatine Kinase 300 units/L (30-135) H 07/01/20 06:01 CK-MB (CK-2) 2.0 ng/mL (0.0-4.0) 07/01/20 06:01 CK-MB (CK-2) Rel Index 0.6 (0-4) 07/01/20 06:01 Troponin T 0.067 ng/mL (0.00-0.029) H 07/01/20 06:01 Total Protein 6.1 g/dL (6.3-8.2) L 08/05/20 05:35 Albumin 2.2 g/dL (3.9-5) L 08/05/20 05:35 Albumin/Globulin Ratio 0.6 % 08/05/20 05:35 Triglycerides 142 mg/dL (2-149) 07/01/20 06:01 Cholesterol 137 mg/dL (50-199) 07/01/20 06:01 LDL Cholesterol Direct 62 mg/dL (50-130) 07/01/20 06:01 HDL Cholesterol 61 mg/dL (40-59) H 07/01/20 06:01 Cholesterol/HDL Ratio 2.24 % 07/01/20 06:01 Procalcitonin 0.18 ng/mL (<0.15) 07/14/20 04:55 Arterial Blood Glucose 131 mg/dL (65-95) H 07/18/20 04:24 Arterial Blood Ionized Calcium 5.1 mg/dL (4.6-5.3) 07/18/20 04:24 Urine Color Yellow (Yellow) 06/06/20 04:00 Urine Turbidity Cloudy (Clear) 06/06/20 04:00 Urine pH 5.0 (5.0-7.0) 06/06/20 04:00 Ur Specific [place] 1.012 (1.003-1.030) 06/06/20 04:00 Urine Protein 100 mg/dl mg/dL (Negative) 06/06/20 04:00 Urine Glucose (UA) 50 mg/dL (Negative) 06/06/20 04:00 Urine Ketones Neg mg/dL (Negative) 06/06/20 04:00 Urine Blood Sm (Negative) 06/06/20 04:00 Urine Nitrite Neg (Negative) 06/06/20 04:00 Urine Bilirubin Neg (Negative) 06/06/20 04:00 Urine Urobilinogen < 2.0 mg/dL (<2.0) 06/06/20 04:00 Ur Leukocyte Esterase Neg (Negative) 06/06/20 04:00 Urine WBC (Auto) 15.0 /HPF (0.0-6.0) H 06/06/20 04:00 Urine RBC (Auto) 23.0 /HPF (0.0-6.0) 06/06/20 04:00 U Epithel Cells (Auto) 8.0 /HPF (0-13.0) 06/06/20 04:00 Urine Bacteria (Auto) 2+ /HPF (Negative) 06/06/20 04:00 Amorphous Crystals 1+ 06/06/20 04:00 Hyaline Casts 16 /LPF 06/06/20 04:00 Urine Mucus 2+ /HPF 06/06/20 04:00 Urine Yeast (Budding) 2+ /HPF 06/03/20 Unknown Urine Creatinine 33.3 mg/dL (0.1-20.0) H 07/06/20 13:20 Urine Sodium 21 mmol/L 07/06/20 13:20 Urine Total Protein 196 mg/dL (5-11.8) H 06/06/20 04:00 Nasal Screen MRSA (PCR) Negative (Negative) 06/29/20 08:30 Phenytoin 4.7 ug/mL (10.0-20.0) L 08/08/20 15:00 Coronavirus (PCR) Negative (Negative) 08/09/20 09:50 Hepatitis A IgM Ab Non-reactive (NonReactive) 07/29/20 13:01 Hep Bs Antigen Non-reactive (Negative) 07/29/20 13:01 Hep B Core IgM Ab Non-reactive (NonReactive) 07/29/20 13:01 Hepatitis C Antibody Non-reactive (NonReactive) 07/29/20 13:01 Blood Type A POSITIVE 08/05/20 09:15 Antibody Screen Negative 08/05/20 09:15 Crossmatch See Detail 08/05/20 09:15 - Diagnostic Impressions Diagnostic Impressions: Echocardiogram Limited Views 05/29/20 13:52 Transthoracic Echocardiogram Indication: Pulm Embolus BP: 169/76 HR: 85 Conclusions *Limited study for RV size post cardiopulmonar arrest. *RV is only slightly dilated, no significant difference from prior echo 05/13/2020. *Global left ventricular systolic function is at the lower limits of normal. *The estimated ejection fraction is 45-50%. *Mild to moderate concentric left ventricular hypertrophy is observed. *The left and right atria are both mild to moderately dilated. Findings Left Ventricle: The left ventricular chamber size is mildly dilated. Mild to moderate concentric left ventricular hypertrophy is observed. Global left ventricular systolic function is at the lower limits of normal. The estimated ejection fraction is 45-50%. Left Atrium: The left atrium is mild to moderately dilated. Right Ventricle: The right ventricle is slightly dilated. Right Atrium: The right atrium is mild to moderately dilated. Aortic Valve: The aortic valve leaflets are moderately thickened. Mitral Valve: There is mitral annular calcification. The mitral valve leaflets are moderately thickened. Tricuspid Valve: The tricuspid valve leaflets are mildly thickened. Pericardium: A trivial pericardial effusion is visualized. NDUM: 05/29/20 1808 Amended Report Transthoracic Echocardiogram Indication: Pulm Embolus BP: 169/76 HR: 85 Conclusions *Limited study for RV size post cardiopulmonary arrest. *RV is only slightly dilated, no significant difference from prior echo 05/13/2020. *Global left ventricular systolic function is at the lower limits of normal. *The estimated ejection fraction is 45-50%. *Mild to moderate concentric left ventricular hypertrophy is observed. *The left and right atria are both mild to moderately dilated. Findings Left Ventricle: The left ventricular chamber size is mildly dilated. Mild to moderate concentric left ventricular hypertrophy is observed. Global left ventricular systolic function is at the lower limits of normal. The estimated ejection fraction is 45-50%. Left Atrium: The left atrium is mild to moderately dilated. Right Ventricle: The right ventricle is slightly dilated. Right Atrium: The right atrium is mild to moderately dilated. Aortic Valve: The aortic valve leaflets are moderately thickened. Mitral Valve: There is mitral annular calcification. The mitral valve leaflets are moderately thickened. Tricuspid Valve: The tricuspid valve leaflets are mildly thickened. Pericardium: A trivial pericardial effusion is visualized. Helm/IV: Voiding Method Indwelling Catheter IV Catheter Type [Right VAS Cath Femoral] IV Catheter Type [Left Forearm INT / Saline Lock ] IV Catheter Type [Left Wrist] Peripheral IV IV Catheter Type [Left Upper Peripheral IV arm] IV Catheter Type [Right CVL Internal Jugular] IV Catheter Type [Right Hand] Peripheral IV IV Catheter Type [Right Wrist] Not found on patient IV Catheter Type [Left Hand] INT / Saline Lock IV Catheter Type [Left INT / Saline Lock Antecubital] IV Catheter Type [Right Peripheral IV Forearm] IV Catheter Type [Left Leg] Intra-osseous Active Medications - Current Medications Current Medications: Generic Name Dose Route Start Last Admin Trade Name Freq PRN Reason Stop Dose Admin Acetaminophen 650 mg 06/09/20 10:57 06/29/20 21:18 Tylenol FEEDTUBE 650 mg Q6H PRN Administration Fever >101 Amlodipine Besylate 10 mg 06/02/20 11:00 08/12/20 09:54 Amlodipine PO 10 mg DAILY NELSON Administration Lipase/Protease/Amylase 1 each 05/29/20 13:39 08/10/20 22:[address] 10,500 Unit FEEDTUBE 1 each PRN PRN Administration For Clogged Feeding Tube Epoetin Javon 10,000 unit 07/29/20 11:29 08/10/20 12:08 Procrit IV 10,000 unit SCOTTY PRN Administration hemodialysis Glycopyrrolate 2 mg 06/09/20 14:00 08/12/20 21:45 Glycopyrrolate PO 2 mg TID NELSON Administration Heparin Sodium (Porcine) 5,000 unit 06/30/20 14:00 08/13/20 05:51 Heparin SUB-Q 5,000 unit Q8HR NELSON Administration Heparin Sodium (Porcine) 5,000 unit 07/29/20 11:29 08/02/20 23:15 Heparin IV 5,000 unit SCOTTY PRN Administration hemodialysis Hydralazine HCl 100 mg 07/14/20 14:00 08/12/20 21:48 Apresoline PO Not Given TID NELSON Hydrophilic Ointment 1 applic 05/28/20 13:49 Vaseline Lip Therapy TP Q2HR PRN Dry Lips Norepinephrine 4 mg in 250 mls @ 7.5 mls/hr 07/23/20 20:00 08/05/20 05:21 Levophed Drip 4 Mg/Ns 250 Ml IV 0 mcg/min TITR NELSON 0 mls/hr Titration Protocol 2 MCG/MIN Phenytoin 150 mg/ Sodium 103 mls @ 408 mls/hr 08/03/20 09:00 08/13/20 05:51 Chloride IV 408 mls/hr Q8HR NELSON Administration Sodium Chloride 100 mls @ 999 mls/hr 08/04/20 22:27 Nacl 0.9% IV SCOTTY PRN Hypotension Insulin Glargine 10 units 06/08/20 22:00 08/12/20 21:48 Lantus SUB-Q Not Given QHS NELSON Insulin Human Lispro 0 unit 05/29/20 18:00 08/13/20 07:53 Humalog SUB-Q Not Given Q6H [facility] Protocol Labetalol HCl 20 mg 06/03/20 09:00 07/31/20 12:14 Labetalol IV 20 mg Q4H PRN Administration HYPERTENSION Lansoprazole 30 mg 08/08/20 10:00 08/12/20 09:54 Prevacid Solutab FEEDTUBE 30 mg QDAY NELSON Administration Levetiracetam 1,000 mg 08/08/20 22:00 08/12/20 21:45 Keppra PO 1,000 mg BID NELSON Administration Minoxidil 5 mg 07/21/20 10:00 08/12/20 21:47 Loniten PO 5 mg BID NELSON Administration Multi-Ingred Cream/Lotion/Oil/Oint 1 applic 05/28/20 13:49 Artificial Tears Ophth Oint OU Q4HR PRN Dry Eye(s) Ondansetron HCl 4 mg 06/02/20 09:00 06/09/20 16:48 Zofran IV 4 mg Q8H PRN Administration Nausea And Vomiting Senna 17.6 mg 06/03/20 10:00 08/12/20 21:49 Senokot FEEDTUBE Not Given BID NELSON Simple Syrup 15 ml 05/29/20 13:39 Simple Syrup FEEDTUBE PRN PRN Hypoglycemia Simple Syrup 30 ml 05/29/20 13:39 Simple Syrup FEEDTUBE PRN PRN Hypoglycemia Sodium Bicarbonate 325 mg 05/29/20 13:39 07/07/20 10:36 Sodium Bicarbonate FEEDTUBE 325 mg PRN PRN Administration For Clogged Feeding Tube Sodium Chloride 10 ml 05/28/20 22:00 08/12/20 21:46 Sodium Chloride Flush Syringe 10 Ml IV 10 ml BID NELSON Administration Sodium Chloride 10 ml 05/28/20 19:08 08/11/20 12:42 Sodium Chloride Flush Syringe 10 Ml IV 10 ml PRN PRN Administration LINE FLUSH Torsemide 100 mg 08/13/20 06:00 08/13/20 05:51 Demadex PO 100 mg DAILY@0600 NELSON Administration Nutrition/Malnutrition Assess - Dietary Evaluation Nutrition/Malnutrition Findings: Nutrition Notes Start: 05/29/20 11:45 Freq: Status: Active Protocol: Document 08/11/20 12:18 KYLIE (Rec: 08/11/20 12:23 KYLIE [id number]) Co-Sign 08/11/20 12:18 ALFRED Nutrition Notes Initial or Follow up Reassessment Current Diagnosis Acute Kidney Injury,Diabetes, Heart Failure,Respiratory Failure Other Pertinent Diagnosis COVID-19 (+), Pulmonary edema, dysphagia Current Diet Nepro at 40 ml/hr Labs/Tests Na 135 BUN 48 Cr 2.2 BG 53 POC 72 Pertinent Medications Dextrose 75g Lasix Height 5 ft 6 in Weight 123 kg [place] Body Weight (kg) 59.09 BMI 43.7 Weight Status Morbidly Obese Subjective/Other Information F/u TF, fluid, Na. Pt remains fluid overloaded. Hospice care possibility. Percent of energy/protein needs met: 100%/100% (Protein based on minimum 1.2g /kg IBW for dialysis) Burn Absent Trauma Absent GI Symptoms None Current % PO Negligible Minimum of two criteria No Fluid Accumulation Mild (non-severe) #1 Nutrition Diagnosis Inadequate oral intake Diagnosis Progress(for reassessment Continues documentation) Is patient on ventilator? Yes Is Patient Ambulatory and/or Out of Bed No REE-([facility]-confined to bed) 2172.576 Kcal/Kg value to use for calculation 13 Approximate Energy Requirements Using 1599 kcal/Kg Calculation Used for Recommendations Kcal/kg Additional Notes Protein needs up to 148g (up to 2.5g/kg IBW) with minimum of 71g (>1.2g/kg of IBW for dialysis) Fluid needs 1ml/kcal or per MD orders Nutrition Intervention Change Diet Order: Continue Nutrition Support: Nepro at 40 ml/hr Flush 50ml q4h Kcal 1,728 Protein (gm) 78 Fluid (mL) 697 Goal #1 Meet at least 75% of energy and protein needs by TF. Anticipated Discharge Needs: Unable to determine at this time Follow-Up By: 11/10/20 Additional Comments F/u TF and POC
[2020-08-13] MEDS: levETIRAcetam 500 MG/5 ML ORAL LIQD PO SCH ×3 (10:08→22:53)
[2020-08-13] MEDS: GLYCOPYRROLATE 2 MG TAB PO SCH ×3 (10:08→20:00)
[2020-08-13] MEDS: LANSOPRAZOLE 30 MG SOLUTAB FEEDTUBE SCH (10:08)
[2020-08-13] MEDS: amLODIPine 10 MG TAB PO SCH (10:08)
[2020-08-13] MEDS: hydrALAZINE 100 MG TAB PO SCH ×3 (10:09→21:46)
[2020-08-13] MEDS: MINOXIDIL 2.5 MG TAB PO SCH ×2 (10:09→21:35)
[2020-08-13] MEDS: SENNOSIDES ORAL LIQD 8.8 MG/5 ML ORAL LIQD FEEDTUBE SCH ×2 (10:41→22:00)
--- NOTE | 2020-08-13 14:49 | Progress Note ---
Assessment and Plan Acute hypoxemic respiratory failure on MVS Coronavirus-19 infection. Bilateral pulmonary infiltrates, bilateral pneumonia plus likely element of Pulmonary edema. Bilateral pulmonary edema. Bilateral pleural effusions. History of congestive heart failure. Morbid obesity. History of pulmonary hypertension. History of hypertension. Diabetes. Obesity hypoventilation syndrome. Elevated serum inflammatory markers to include D-dimers and LDH levels. Hyperkalemia at presentation. Metabolic acidosis. Oropharyngeal dysphagia. (AMS remains rate limiting factor to safe extubation; she will need a tracheo stomy if continued care desired) - continue daily SBT's and attempts to wean - discharge planning ongoing concurrently - continue to rest on AC qhs - prn vasopressors for target MAP > 65 mmHg - continue care as below otherwise; - prn CXR's and ABG's at this point - repeat EEG next per neurology rec's (repeat CT brain negative) - AED's per neurology ([facility] [employer] [facility]) - surgery evaluation ongoing for trach +/- PEG (await negative COVID PCR result) - continue Modafinil re: lethargy / somnolence - continue daytime PSV trials as tolerated - Daily SAT and SBT assessment as tolerated - continue to wean supplemental oxygen for target O2 sat's > 92% acutely - VAP bundle addressed - continue lung protective strategies - continue bronchodilators with pulmonary hygiene per RT - wean per pulmonary driven protocols otherwise - continue accuchecks resumed with glycemic control per SSI (While critically ill target blood glucose of 140-180 mg/dL; avoid hypoglycemia) - sedation prn for target RASS 0 to -1 - continue to avoid benzodiazepine's, reduce the possibility of delirium - AB's per ID rec's (following clinically of AB's at this time) - continue enteral nutrition at goal rate as tolerated - AED's per neurology - prn analgesia per CPOT score - Maintenance of sleep-wake cycle, avoid delirium - continue enteral nutritional support at goal rate as tolerated - G.I. & VTE prophylaxis with heparin & famotidine - PT/OT/ROM exercises - continue mobility protocols for pressure ulcer prophylaxis - Monitor hemodynamics closely - continue other care per attending / other consultants - discharge planning ongoing concurrently (LTAC evaluation is appropriate) .... Re-evaluate in am & prn; will continue aggressive care until clear family wants to decelerate CONDITION: CRITICAL PROGNOSIS: GUARDED CODE STATUS: FULL CODE The high probability of a clinically significant, sudden or life-threatening deterioration of the [respiratory, cardiovascular, GI & neurologic] system(s) required my full and direct attention, intervention and personal management. The aggregate critical care time was [31] minutes without overlap. Time includes spent on; [x] Data Review and interpretation [x] Patient assessment and monitoring of vital signs [x] Documentation [x] Medication orders and management Subjective Date of service: 08/13/20 Principal diagnosis: Ac hypoxemic resp failure; COVID-19; pneumonia; CHF; Pulm HTN; OHS; DM II Interval history: Patient is seen today for: Ac hypoxemic resp failure; Coronavirus-19 infection; pneumonia; Pulmonary edema; Bilateral pleural effusions; CHF; Morbid obesity; pulmonary hypertension; OHS; DM II Seen and examined at bedside; 24hour events reviewed; nursing and respiratory care staff consulted; no adverse overnight events reported to me; resting peacefully in bed; remains on MVS; AMS is persistent; azotemia is persistent; no emesis or overt aspiration; no high grade fevers Objective Vital Signs - 12hr 08/13/20 08/13/20 08/13/20 03:01 03:31 03:48 Temperature Pulse Rate 73 73 Pulse Rate [ 73 From Monitor] Respiratory 13 13 16 Rate Blood Pressure 146/52 139/50 O2 Sat by Pulse 98 98 98 Oximetry 08/13/20 08/13/20 08/13/20 04:00 04:01 04:31 Temperature 98.8 F Pulse Rate 73 73 72 Pulse Rate [ From Monitor] Respiratory 12 14 Rate Blood Pressure 145/52 142/58 O2 Sat by Pulse 99 99 Oximetry 08/13/20 08/13/20 08/13/20 05:01 05:31 05:50 Temperature Pulse Rate 75 73 72 Pulse Rate [ From Monitor] Respiratory 14 15 Rate Blood Pressure 147/60 137/50 137/50 O2 Sat by Pulse 98 99 99 Oximetry 08/13/20 08/13/20 08/13/20 06:01 06:31 07:01 Temperature Pulse Rate 71 70 72 Pulse Rate [ From Monitor] Respiratory 14 12 9 L Rate Blood Pressure 145/56 142/57 145/56 O2 Sat by Pulse 99 99 98 Oximetry 08/13/20 08/13/20 08/13/20 07:31 08:00 08:01 Temperature 99.1 F Pulse Rate 71 71 71 Pulse Rate [ 71 From Monitor] Respiratory 17 14 14 Rate Blood Pressure 145/56 140/52 O2 Sat by Pulse 98 99 99 Oximetry 08/13/20 08/13/20 08/13/20 08:10 08:31 09:01 Temperature Pulse Rate 70 72 71 Pulse Rate [ From Monitor] Respiratory 14 15 Rate Blood Pressure 142/57 136/55 144/54 O2 Sat by Pulse 99 100 99 Oximetry 08/13/20 08/13/20 08/13/20 09:31 10:01 10:08 Temperature Pulse Rate 75 72 73 Pulse Rate [ From Monitor] Respiratory 18 14 Rate Blood Pressure 150/55 142/51 142/51 O2 Sat by Pulse 99 99 Oximetry 08/13/20 08/13/20 08/13/20 10:31 11:01 11:24 Temperature Pulse Rate 70 71 73 Pulse Rate [ From Monitor] Respiratory 16 16 Rate Blood Pressure 140/48 137/56 142/51 O2 Sat by Pulse 99 100 99 Oximetry 08/13/20 08/13/20 08/13/20 11:31 12:00 12:01 Temperature 98.7 F Pulse Rate 73 72 72 Pulse Rate [ 72 From Monitor] Respiratory 14 13 15 Rate Blood Pressure 141/80 141/52 O2 Sat by Pulse 97 99 100 Oximetry 08/13/20 12:31 Temperature Pulse Rate 72 Pulse Rate [ From Monitor] Respiratory 15 Rate Blood Pressure 138/52 O2 Sat by Pulse 99 Oximetry Constitutional: appears uncomfortable, other (elderly looking female with mildly increased resp effort at rest) Eyes: non-icteric ENT: oropharynx moist, oropharyngeal exudate pre (mild to moderate), other (ETT 23-24 cm AYAN) Neck: supple, no lymphadenopathy, no JVD Effort: mildly labored Ascultation: Bilateral: diminished breath sounds, rhonchi Percussion: Bilateral: not dull Cardiovascular: regular rate and rhythm, other (S1,S2) Gastrointestinal: normoactive bowel sounds, soft, non-tender, non-distended Integumentary: rash, other (anasarca) Extremities: no cyanosis, pink and warm, pulses normal, no ischemia or petechiae, edema (+ anasarca) Neurologic: unable to assess, other (lethargic to obtunded) Psychiatric: other (unable to assess re: AMS) CBC and BMP: 08/11/20 03:55 08/14/20 04:50 ABG, PT/INR, D-dimer: ABG ABG pH 7.344 pH Units (7.350-7.450) L 08/02/20 11:25 POC ABG pCO2 44.1 mmHg (32.0-48.0) 07/18/20 04:24 ABG pCO2 39.0 mm Hg 08/02/20 11:25 POC ABG pO2 86.8 mmHg (83-108) 07/18/20 04:24 ABG pO2 101.1 mm Hg (80.0-90.0) H 08/02/20 11:25 POC ABG HCO3 25.6 07/18/20 04:24 ABG O2 Saturation 97.5 % (95.0-99.0) 08/02/20 11:25 PT/INR, D-dimer PT 14.2 Sec. (12.2-14.9) 05/29/20 15:10 INR 1.08 (0.87-1.13) 05/29/20 15:10 D-Dimer 2310.15 ng/mlDDU (0-234) H 06/29/20 14:45 Abnormal lab findings: Abnormal Labs 05/28/20 05/28/20 05/28/20 13:29 13:47 13:47 WBC RBC Hgb Hct MCHC RDW 15.3 H Lymph % (Auto) [place] % (Auto) Eos % (Auto) Lymph # [place] # Lymph # (Auto) [place] # (Auto) Eos # (Auto) Seg Neutrophils % Seg Neuts % (Manual) Lymphocytes % (Manual) Seg Neutrophils # Seg Neutrophils # Man Lymphocytes # (Manual) Monocytes % (Manual) Eosinophils % (Manual) Monocytes # (Manual) Eosinophils # (Manual) D-Dimer Heparin Anti-Xa Level ABG pH POC ABG pCO2 POC ABG pO2 ABG pO2 ABG HCO3 ABG O2 Saturation ABG Base Excess ABG Hemoglobin ABG Oxyhemoglobin VBG pH ABG Sodium ABG Potassium ABG Glucose Oxyhemoglobin Sodium Potassium 6.6 H* Chloride 109.2 H Carbon Dioxide 17 L BUN 29 H Creatinine 1.3 H Glucose 265 H POC Glucose 248 H Lactic Acid Calcium 8.1 L Ferritin AST 63 H Alkaline Phosphatase Magnesium Lactate Dehydrogenase Total Creatine Kinase 301 H CK-MB (CK-2) 4.3 H C-Reactive Protein Total Protein 5.4 L Albumin 2.6 L Troponin T HDL Cholesterol Arterial Blood Glucose Urine WBC (Auto) Urine Creatinine Urine Total Protein Phenytoin Coronavirus (PCR) Crossmatch 05/28/20 05/28/20 05/28/20 13:47 13:47 14:46 WBC RBC Hgb Hct MCHC RDW Lymph % (Auto) [place] % (Auto) Eos % (Auto) Lymph # [place] # Lymph # (Auto) [place] # (Auto) Eos # (Auto) Seg Neutrophils % Seg Neuts % (Manual) Lymphocytes % (Manual) Seg Neutrophils # Seg Neutrophils # Man Lymphocytes # (Manual) Monocytes % (Manual) Eosinophils % (Manual) Monocytes # (Manual) Eosinophils # (Manual) D-Dimer Heparin Anti-Xa Level ABG pH POC ABG pCO2 POC ABG pO2 ABG pO2 ABG HCO3 ABG O2 Saturation ABG Base Excess ABG Hemoglobin ABG Oxyhemoglobin VBG pH 7.152 L* ABG Sodium ABG Potassium ABG Glucose Oxyhemoglobin Sodium Potassium 7.2 H* Chloride Carbon Dioxide BUN Creatinine Glucose POC Glucose Lactic Acid 3.40 H* Calcium Ferritin AST Alkaline Phosphatase Magnesium Lactate Dehydrogenase Total Creatine Kinase CK-MB (CK-2) C-Reactive Protein Total Protein Albumin Troponin T HDL Cholesterol Arterial Blood Glucose Urine WBC (Auto) Urine Creatinine Urine Total Protein Phenytoin Coronavirus (PCR) Crossmatch 05/28/20 05/28/20 05/28/20 15:33 15:33 15:51 WBC RBC Hgb Hct MCHC RDW Lymph % (Auto) [place] % (Auto) Eos % (Auto) Lymph # [place] # Lymph # (Auto) [place] # (Auto) Eos # (Auto) Seg Neutrophils % Seg Neuts % (Manual) Lymphocytes % (Manual) Seg Neutrophils # Seg Neutrophils # Man Lymphocytes # (Manual) Monocytes % (Manual) Eosinophils % (Manual) Monocytes # (Manual) Eosinophils # (Manual) D-Dimer 8780.43 H Heparin Anti-Xa Level ABG pH 7.284 L POC ABG pCO2 POC ABG pO2 ABG pO2 273.0 H ABG HCO3 ABG O2 Saturation 99.4 H ABG Base Excess -6.1 L ABG Hemoglobin 17.2 H ABG Oxyhemoglobin VBG pH ABG Sodium ABG Potassium ABG Glucose Oxyhemoglobin Sodium Potassium Chloride Carbon Dioxide BUN Creatinine Glucose 152 H POC Glucose Lactic Acid Calcium Ferritin AST Alkaline Phosphatase Magnesium Lactate Dehydrogenase 365 H Total Creatine Kinase CK-MB (CK-2) C-Reactive Protein Total Protein Albumin Troponin T HDL Cholesterol Arterial Blood Glucose Urine WBC (Auto) Urine Creatinine Urine Total Protein Phenytoin Coronavirus (PCR) Crossmatch 05/28/20 05/28/20 05/28/20 16:30 20:41 23:20 WBC RBC Hgb Hct MCHC RDW Lymph % (Auto) [place] % (Auto) Eos % (Auto) Lymph # [place] # Lymph # (Auto) [place] # (Auto) Eos # (Auto) Seg Neutrophils % Seg Neuts % (Manual) Lymphocytes % (Manual) Seg Neutrophils # Seg Neutrophils # Man Lymphocytes # (Manual) Monocytes % (Manual) Eosinophils % (Manual) Monocytes # (Manual) Eosinophils # (Manual) D-Dimer Heparin Anti-Xa Level ABG pH POC ABG pCO2 POC ABG pO2 ABG pO2 ABG HCO3 ABG O2 Saturation ABG Base Excess ABG Hemoglobin ABG Oxyhemoglobin VBG pH ABG Sodium ABG Potassium ABG Glucose Oxyhemoglobin Sodium Potassium Chloride Carbon Dioxide BUN Creatinine Glucose POC Glucose 225 H 224 H Lactic Acid Calcium Ferritin AST Alkaline Phosphatase Magnesium Lactate Dehydrogenase Total Creatine Kinase CK-MB (CK-2) C-Reactive Protein Total Protein Albumin Troponin T HDL Cholesterol Arterial Blood Glucose Urine WBC (Auto) 17.0 H Urine Creatinine Urine Total Protein Phenytoin Coronavirus (PCR) Crossmatch 05/28/20 05/29/20 05/29/20 Unknown 04:35 04:43 WBC RBC 3.48 L Hgb 9.8 L Hct 29.4 L MCHC RDW 16.0 H Lymph % (Auto) 7.4 L [place] % (Auto) Eos % (Auto) Lymph # 0.7 L [place] # Lymph # (Auto) [place] # (Auto) Eos # (Auto) Seg Neutrophils % 89.1 H Seg Neuts % (Manual) Lymphocytes % (Manual) Seg Neutrophils # 8.1 H Seg Neutrophils # Man Lymphocytes # (Manual) Monocytes % (Manual) Eosinophils % (Manual) Monocytes # (Manual) Eosinophils # (Manual) D-Dimer Heparin Anti-Xa Level ABG pH POC ABG pCO2 POC ABG pO2 ABG pO2 ABG HCO3 19.3 L ABG O2 Saturation ABG Base Excess -4.5 L ABG Hemoglobin 9.7 L ABG Oxyhemoglobin VBG pH ABG Sodium ABG Potassium ABG Glucose Oxyhemoglobin Sodium Potassium Chloride Carbon Dioxide BUN Creatinine Glucose POC Glucose Lactic Acid Calcium Ferritin AST Alkaline Phosphatase Magnesium Lactate Dehydrogenase Total Creatine Kinase CK-MB (CK-2) C-Reactive Protein Total Protein Albumin Troponin T HDL Cholesterol Arterial Blood Glucose Urine WBC (Auto) Urine Creatinine Urine Total Protein Phenytoin Coronavirus (PCR) Positive A Crossmatch 05/29/20 05/29/20 05/29/20 04:43 15:10 17:17 WBC RBC Hgb 9.3 L Hct 28.7 L MCHC RDW Lymph % (Auto) [place] % (Auto) Eos % (Auto) Lymph # [place] # Lymph # (Auto) [place] # (Auto) Eos # (Auto) Seg Neutrophils % Seg Neuts % (Manual) Lymphocytes % (Manual) Seg Neutrophils # Seg Neutrophils # Man Lymphocytes # (Manual) Monocytes % (Manual) Eosinophils % (Manual) Monocytes # (Manual) Eosinophils # (Manual) D-Dimer Heparin Anti-Xa Level ABG pH POC ABG pCO2 POC ABG pO2 ABG pO2 ABG HCO3 ABG O2 Saturation ABG Base Excess ABG Hemoglobin ABG Oxyhemoglobin VBG pH ABG Sodium ABG Potassium ABG Glucose Oxyhemoglobin Sodium Potassium Chloride 110.2 H Carbon Dioxide 18 L BUN 32 H Creatinine 1.4 H Glucose 180 H POC Glucose 147 H Lactic Acid Calcium Ferritin AST Alkaline Phosphatase Magnesium Lactate Dehydrogenase Total Creatine Kinase CK-MB (CK-2) C-Reactive Protein Total Protein Albumin Troponin T HDL Cholesterol Arterial Blood Glucose Urine WBC (Auto) Urine Creatinine Urine Total Protein Phenytoin Coronavirus (PCR) Crossmatch 05/30/20 05/30/20 05/30/20 00:08 00:12 04:15 WBC RBC Hgb Hct MCHC RDW Lymph % (Auto) [place] % (Auto) Eos % (Auto) Lymph # [place] # Lymph # (Auto) [place] # (Auto) Eos # (Auto) Seg Neutrophils % Seg Neuts % (Manual) Lymphocytes % (Manual) Seg Neutrophils # Seg Neutrophils # Man Lymphocytes # (Manual) Monocytes % (Manual) Eosinophils % (Manual) Monocytes # (Manual) Eosinophils # (Manual) D-Dimer Heparin Anti-Xa Level 0.71 H ABG pH 7.460 H POC ABG pCO2 POC ABG pO2 ABG pO2 106.0 H ABG HCO3 18.9 L ABG O2 Saturation ABG Base Excess -4.4 L ABG Hemoglobin 6.8 L ABG Oxyhemoglobin VBG pH ABG Sodium ABG Potassium ABG Glucose Oxyhemoglobin Sodium Potassium Chloride Carbon Dioxide BUN Creatinine Glucose POC Glucose 195 H Lactic Acid Calcium Ferritin AST Alkaline Phosphatase Magnesium Lactate Dehydrogenase Total Creatine Kinase CK-MB (CK-2) C-Reactive Protein Total Protein Albumin Troponin T HDL Cholesterol Arterial Blood Glucose Urine WBC (Auto) Urine Creatinine Urine Total Protein Phenytoin Coronavirus (PCR) Crossmatch 05/30/20 05/30/20 05/30/20 06:07 08:37 12:33 WBC RBC Hgb Hct MCHC RDW Lymph % (Auto) [place] % (Auto) Eos % (Auto) Lymph # [place] # Lymph # (Auto) [place] # (Auto) Eos # (Auto) Seg Neutrophils % Seg Neuts % (Manual) Lymphocytes % (Manual) Seg Neutrophils # Seg Neutrophils # Man Lymphocytes # (Manual) Monocytes % (Manual) Eosinophils % (Manual) Monocytes # (Manual) Eosinophils # (Manual) D-Dimer Heparin Anti-Xa Level 0.85 H ABG pH POC ABG pCO2 POC ABG pO2 ABG pO2 ABG HCO3 ABG O2 Saturation ABG Base Excess ABG Hemoglobin ABG Oxyhemoglobin VBG pH ABG Sodium ABG Potassium ABG Glucose Oxyhemoglobin Sodium Potassium Chloride Carbon Dioxide BUN Creatinine Glucose POC Glucose 182 H 187 H Lactic Acid Calcium Ferritin AST Alkaline Phosphatase Magnesium Lactate Dehydrogenase Total Creatine Kinase CK-MB (CK-2) C-Reactive Protein Total Protein Albumin Troponin T HDL Cholesterol Arterial Blood Glucose Urine WBC (Auto) Urine Creatinine Urine Total Protein Phenytoin Coronavirus (PCR) Crossmatch 05/30/20 05/30/20 05/30/20 15:58 17:57 23:36 WBC RBC Hgb Hct MCHC RDW Lymph % (Auto) [place] % (Auto) Eos % (Auto) Lymph # [place] # Lymph # (Auto) [place] # (Auto) Eos # (Auto) Seg Neutrophils % Seg Neuts % (Manual) Lymphocytes % (Manual) Seg Neutrophils # Seg Neutrophils # Man Lymphocytes # (Manual) Monocytes % (Manual) Eosinophils % (Manual) Monocytes # (Manual) Eosinophils # (Manual) D-Dimer Heparin Anti-Xa Level 1.03 H ABG pH POC ABG pCO2 POC ABG pO2 ABG pO2 ABG HCO3 ABG O2 Saturation ABG Base Excess ABG Hemoglobin ABG Oxyhemoglobin VBG pH ABG Sodium ABG Potassium ABG Glucose Oxyhemoglobin Sodium Potassium Chloride Carbon Dioxide BUN Creatinine Glucose POC Glucose 208 H 185 H Lactic Acid Calcium Ferritin AST Alkaline Phosphatase Magnesium Lactate Dehydrogenase Total Creatine Kinase CK-MB (CK-2) C-Reactive Protein Total Protein Albumin Troponin T HDL Cholesterol Arterial Blood Glucose Urine WBC (Auto) Urine Creatinine Urine Total Protein Phenytoin Coronavirus (PCR) Crossmatch 05/31/20 05/31/20 05/31/20 02:16 03:55 06:16 WBC RBC Hgb 9.2 L Hct 27.5 L MCHC RDW Lymph % (Auto) [place] % (Auto) Eos % (Auto) Lymph # [place] # Lymph # (Auto) [place] # (Auto) Eos # (Auto) Seg Neutrophils % Seg Neuts % (Manual) Lymphocytes % (Manual) Seg Neutrophils # Seg Neutrophils # Man Lymphocytes # (Manual) Monocytes % (Manual) Eosinophils % (Manual) Monocytes # (Manual) Eosinophils # (Manual) D-Dimer Heparin Anti-Xa Level ABG pH POC ABG pCO2 POC ABG pO2 ABG pO2 94.7 H ABG HCO3 18.6 L ABG O2 Saturation ABG Base Excess -5.5 L ABG Hemoglobin 7.9 L ABG Oxyhemoglobin VBG pH ABG Sodium ABG Potassium ABG Glucose Oxyhemoglobin Sodium Potassium Chloride Carbon Dioxide BUN Creatinine Glucose POC Glucose 160 H Lactic Acid Calcium Ferritin AST Alkaline Phosphatase Magnesium Lactate Dehydrogenase Total Creatine Kinase CK-MB (CK-2) C-Reactive Protein Total Protein Albumin Troponin T HDL Cholesterol Arterial Blood Glucose Urine WBC (Auto) Urine Creatinine Urine Total Protein Phenytoin Coronavirus (PCR) Crossmatch 05/31/20 05/31/20 05/31/20 12:20 13:03 18:13 WBC RBC Hgb Hct MCHC RDW Lymph % (Auto) [place] % (Auto) Eos % (Auto) Lymph # [place] # Lymph # (Auto) [place] # (Auto) Eos # (Auto) Seg Neutrophils % Seg Neuts % (Manual) Lymphocytes % (Manual) Seg Neutrophils # Seg Neutrophils # Man Lymphocytes # (Manual) Monocytes % (Manual) Eosinophils % (Manual) Monocytes # (Manual) Eosinophils # (Manual) D-Dimer Heparin Anti-Xa Level ABG pH POC ABG pCO2 POC ABG pO2 ABG pO2 ABG HCO3 ABG O2 Saturation ABG Base Excess ABG Hemoglobin ABG Oxyhemoglobin VBG pH ABG Sodium ABG Potassium ABG Glucose Oxyhemoglobin Sodium Potassium Chloride Carbon Dioxide 18 L BUN 48 H Creatinine 1.6 H Glucose 115 H POC Glucose 128 H 159 H Lactic Acid Calcium 8.3 L Ferritin AST Alkaline Phosphatase Magnesium Lactate Dehydrogenase Total Creatine Kinase CK-MB (CK-2) C-Reactive Protein Total Protein 5.4 L Albumin 2.4 L Troponin T HDL Cholesterol Arterial Blood Glucose Urine WBC (Auto) Urine Creatinine Urine Total Protein Phenytoin Coronavirus (PCR) Crossmatch 05/31/20 06/01/20 06/01/20 23:51 04:00 05:48 WBC RBC Hgb Hct MCHC RDW Lymph % (Auto) [place] % (Auto) Eos % (Auto) Lymph # [place] # Lymph # (Auto) [place] # (Auto) Eos # (Auto) Seg Neutrophils % Seg Neuts % (Manual) Lymphocytes % (Manual) Seg Neutrophils # Seg Neutrophils # Man Lymphocytes # (Manual) Monocytes % (Manual) Eosinophils % (Manual) Monocytes # (Manual) Eosinophils # (Manual) D-Dimer Heparin Anti-Xa Level ABG pH POC ABG pCO2 POC ABG pO2 ABG pO2 109.8 H ABG HCO3 18.8 L ABG O2 Saturation ABG Base Excess -5.9 L ABG Hemoglobin 7.8 L ABG Oxyhemoglobin VBG pH ABG Sodium ABG Potassium ABG Glucose Oxyhemoglobin Sodium Potassium Chloride Carbon Dioxide BUN Creatinine Glucose POC Glucose 171 H 133 H Lactic Acid Calcium Ferritin AST Alkaline Phosphatase Magnesium Lactate Dehydrogenase Total Creatine Kinase CK-MB (CK-2) C-Reactive Protein Total Protein Albumin Troponin T HDL Cholesterol Arterial Blood Glucose Urine WBC (Auto) Urine Creatinine Urine Total Protein Phenytoin Coronavirus (PCR) Crossmatch 06/01/20 06/01/20 06/02/20 12:28 17:29 00:08 WBC RBC Hgb Hct MCHC RDW Lymph % (Auto) [place] % (Auto) Eos % (Auto) Lymph # [place] # Lymph # (Auto) [place] # (Auto) Eos # (Auto) Seg Neutrophils % Seg Neuts % (Manual) Lymphocytes % (Manual) Seg Neutrophils # Seg Neutrophils # Man Lymphocytes # (Manual) Monocytes % (Manual) Eosinophils % (Manual) Monocytes # (Manual) Eosinophils # (Manual) D-Dimer Heparin Anti-Xa Level ABG pH POC ABG pCO2 POC ABG pO2 ABG pO2 ABG HCO3 ABG O2 Saturation ABG Base Excess ABG Hemoglobin ABG Oxyhemoglobin VBG pH ABG Sodium ABG Potassium ABG Glucose Oxyhemoglobin Sodium Potassium Chloride Carbon Dioxide BUN Creatinine Glucose POC Glucose 199 H 209 H 162 H Lactic Acid Calcium Ferritin AST Alkaline Phosphatase Magnesium Lactate Dehydrogenase Total Creatine Kinase CK-MB (CK-2) C-Reactive Protein Total Protein Albumin Troponin T HDL Cholesterol Arterial Blood Glucose Urine WBC (Auto) Urine Creatinine Urine Total Protein Phenytoin Coronavirus (PCR) Crossmatch 06/02/20 06/02/20 06/02/20 04:20 04:20 04:44 WBC RBC Hgb 10.0 L Hct MCHC RDW Lymph % (Auto) [place] % (Auto) Eos % (Auto) Lymph # [place] # Lymph # (Auto) [place] # (Auto) Eos # (Auto) Seg Neutrophils % Seg Neuts % (Manual) Lymphocytes % (Manual) Seg Neutrophils # Seg Neutrophils # Man Lymphocytes # (Manual) Monocytes % (Manual) Eosinophils % (Manual) Monocytes # (Manual) Eosinophils # (Manual) D-Dimer Heparin Anti-Xa Level 0.10 L ABG pH POC ABG pCO2 POC ABG pO2 ABG pO2 150.6 H ABG HCO3 ABG O2 Saturation ABG Base Excess -4.1 L ABG Hemoglobin 11.8 L ABG Oxyhemoglobin VBG pH ABG Sodium ABG Potassium ABG Glucose Oxyhemoglobin Sodium Potassium Chloride Carbon Dioxide BUN Creatinine Glucose POC Glucose Lactic Acid Calcium Ferritin AST Alkaline Phosphatase Magnesium Lactate Dehydrogenase Total Creatine Kinase CK-MB (CK-2) C-Reactive Protein Total Protein Albumin Troponin T HDL Cholesterol Arterial Blood Glucose Urine WBC (Auto) Urine Creatinine Urine Total Protein Phenytoin Coronavirus (PCR) Crossmatch 06/02/20 06/02/20 06/02/20 05:53 12:04 13:49 WBC RBC Hgb Hct MCHC RDW Lymph % (Auto) [place] % (Auto) Eos % (Auto) Lymph # [place] # Lymph # (Auto) [place] # (Auto) Eos # (Auto) Seg Neutrophils % Seg Neuts % (Manual) Lymphocytes % (Manual) Seg Neutrophils # Seg Neutrophils # Man Lymphocytes # (Manual) Monocytes % (Manual) Eosinophils % (Manual) Monocytes # (Manual) Eosinophils # (Manual) D-Dimer Heparin Anti-Xa Level 0.28 L ABG pH POC ABG pCO2 POC ABG pO2 ABG pO2 ABG HCO3 ABG O2 Saturation ABG Base Excess ABG Hemoglobin ABG Oxyhemoglobin VBG pH ABG Sodium ABG Potassium ABG Glucose Oxyhemoglobin Sodium Potassium Chloride Carbon Dioxide BUN Creatinine Glucose POC Glucose 149 H 220 H Lactic Acid Calcium Ferritin AST Alkaline Phosphatase Magnesium Lactate Dehydrogenase Total Creatine Kinase CK-MB (CK-2) C-Reactive Protein Total Protein Albumin Troponin T HDL Cholesterol Arterial Blood Glucose Urine WBC (Auto) Urine Creatinine Urine Total Protein Phenytoin Coronavirus (PCR) Crossmatch 06/02/20 06/02/20 06/03/20 13:49 18:31 00:42 WBC RBC Hgb Hct MCHC RDW Lymph % (Auto) [place] % (Auto) Eos % (Auto) Lymph # [place] # Lymph # (Auto) [place] # (Auto) Eos # (Auto) Seg Neutrophils % Seg Neuts % (Manual) Lymphocytes % (Manual) Seg Neutrophils # Seg Neutrophils # Man Lymphocytes # (Manual) Monocytes % (Manual) Eosinophils % (Manual) Monocytes # (Manual) Eosinophils # (Manual) D-Dimer 769.68 H Heparin Anti-Xa Level ABG pH POC ABG pCO2 POC ABG pO2 ABG pO2 ABG HCO3 ABG O2 Saturation ABG Base Excess ABG Hemoglobin ABG Oxyhemoglobin VBG pH ABG Sodium ABG Potassium ABG Glucose Oxyhemoglobin Sodium Potassium Chloride Carbon Dioxide BUN Creatinine Glucose POC Glucose 225 H 212 H Lactic Acid Calcium Ferritin AST Alkaline Phosphatase Magnesium Lactate Dehydrogenase Total Creatine Kinase CK-MB (CK-2) C-Reactive Protein Total Protein Albumin Troponin T HDL Cholesterol Arterial Blood Glucose Urine WBC (Auto) Urine Creatinine Urine Total Protein Phenytoin Coronavirus (PCR) Crossmatch 06/03/20 06/03/20 06/03/20 05:16 05:16 05:25 WBC 11.4 H RBC Hgb Hct MCHC RDW 16.4 H Lymph % (Auto) [place] % (Auto) Eos % (Auto) Lymph # [place] # Lymph # (Auto) [place] # (Auto) Eos # (Auto) Seg Neutrophils % Seg Neuts % (Manual) Lymphocytes % (Manual) Seg Neutrophils # Seg Neutrophils # Man Lymphocytes # (Manual) Monocytes % (Manual) Eosinophils % (Manual) Monocytes # (Manual) Eosinophils # (Manual) D-Dimer Heparin Anti-Xa Level ABG pH POC ABG pCO2 POC ABG pO2 ABG pO2 160.9 H ABG HCO3 19.4 L ABG O2 Saturation ABG Base Excess -4.9 L ABG Hemoglobin 7.0 L ABG Oxyhemoglobin VBG pH ABG Sodium ABG Potassium ABG Glucose Oxyhemoglobin Sodium Potassium Chloride Carbon Dioxide 18 L BUN 65 H Creatinine 2.0 H Glucose 175 H POC Glucose Lactic Acid Calcium 8.0 L Ferritin AST Alkaline Phosphatase Magnesium Lactate Dehydrogenase Total Creatine Kinase CK-MB (CK-2) C-Reactive Protein Total Protein 5.5 L Albumin 2.2 L Troponin T HDL Cholesterol Arterial Blood Glucose Urine WBC (Auto) Urine Creatinine Urine Total Protein Phenytoin Coronavirus (PCR) Crossmatch 06/03/20 06/03/20 06/03/20 06:07 11:58 18:24 WBC RBC Hgb Hct MCHC RDW Lymph % (Auto) [place] % (Auto) Eos % (Auto) Lymph # [place] # Lymph # (Auto) [place] # (Auto) Eos # (Auto) Seg Neutrophils % Seg Neuts % (Manual) Lymphocytes % (Manual) Seg Neutrophils # Seg Neutrophils # Man Lymphocytes # (Manual) Monocytes % (Manual) Eosinophils % (Manual) Monocytes # (Manual) Eosinophils # (Manual) D-Dimer Heparin Anti-Xa Level ABG pH POC ABG pCO2 POC ABG pO2 ABG pO2 ABG HCO3 ABG O2 Saturation ABG Base Excess ABG Hemoglobin ABG Oxyhemoglobin VBG pH ABG Sodium ABG Potassium ABG Glucose Oxyhemoglobin Sodium Potassium Chloride Carbon Dioxide BUN Creatinine Glucose POC Glucose 177 H 163 H 211 H Lactic Acid Calcium Ferritin AST Alkaline Phosphatase Magnesium Lactate Dehydrogenase Total Creatine Kinase CK-MB (CK-2) C-Reactive Protein Total Protein Albumin Troponin T HDL Cholesterol Arterial Blood Glucose Urine WBC (Auto) Urine Creatinine Urine Total Protein Phenytoin Coronavirus (PCR) Crossmatch 06/03/20 06/03/20 06/04/20 21:50 Unknown 00:26 WBC RBC Hgb Hct MCHC RDW Lymph % (Auto) [place] % (Auto) Eos % (Auto) Lymph # [place] # Lymph # (Auto) [place] # (Auto) Eos # (Auto) Seg Neutrophils % Seg Neuts % (Manual) Lymphocytes % (Manual) Seg Neutrophils # Seg Neutrophils # Man Lymphocytes # (Manual) Monocytes % (Manual) Eosinophils % (Manual) Monocytes # (Manual) Eosinophils # (Manual) D-Dimer Heparin Anti-Xa Level ABG pH POC ABG pCO2 POC ABG pO2 ABG pO2 ABG HCO3 ABG O2 Saturation ABG Base Excess ABG Hemoglobin ABG Oxyhemoglobin VBG pH ABG Sodium ABG Potassium ABG Glucose Oxyhemoglobin Sodium 135 L Potassium Chloride Carbon Dioxide 18 L BUN Creatinine Glucose POC Glucose 241 H Lactic Acid Calcium Ferritin AST Alkaline Phosphatase Magnesium Lactate Dehydrogenase Total Creatine Kinase CK-MB (CK-2) C-Reactive Protein Total Protein Albumin Troponin T HDL Cholesterol Arterial Blood Glucose Urine WBC (Auto) 11.0 H Urine Creatinine Urine Total Protein Phenytoin Coronavirus (PCR) Crossmatch 06/04/20 06/04/20 06/04/20 03:35 04:19 04:19 WBC RBC 3.15 L Hgb 8.9 L Hct 26.8 L D MCHC RDW 15.9 H Lymph % (Auto) 6.0 L [place] % (Auto) Eos % (Auto) Lymph # 0.6 L [place] # Lymph # (Auto) [place] # (Auto) Eos # (Auto) Seg Neutrophils % 86.6 H Seg Neuts % (Manual) Lymphocytes % (Manual) Seg Neutrophils # 9.1 H Seg Neutrophils # Man Lymphocytes # (Manual) Monocytes % (Manual) Eosinophils % (Manual) Monocytes # (Manual) Eosinophils # (Manual) D-Dimer Heparin Anti-Xa Level ABG pH 7.331 L POC ABG pCO2 POC ABG pO2 ABG pO2 ABG HCO3 ABG O2 Saturation ABG Base Excess -4.7 L ABG Hemoglobin 11.0 L ABG Oxyhemoglobin VBG pH ABG Sodium ABG Potassium ABG Glucose Oxyhemoglobin 93.9 L Sodium 136 L Potassium Chloride Carbon Dioxide 20 L BUN 73 H Creatinine 2.0 H Glucose 192 H POC Glucose Lactic Acid Calcium 8.0 L Ferritin AST Alkaline Phosphatase Magnesium Lactate Dehydrogenase 271 H Total Creatine Kinase CK-MB (CK-2) C-Reactive Protein 2.20 H Total Protein 5.0 L Albumin 2.0 L Troponin T HDL Cholesterol Arterial Blood Glucose Urine WBC (Auto) Urine Creatinine Urine Total Protein Phenytoin Coronavirus (PCR) Crossmatch 06/04/20 06/04/20 06/04/20 04:19 05:51 11:48 WBC RBC Hgb Hct MCHC RDW Lymph % (Auto) [place] % (Auto) Eos % (Auto) Lymph # [place] # Lymph # (Auto) [place] # (Auto) Eos # (Auto) Seg Neutrophils % Seg Neuts % (Manual) Lymphocytes % (Manual) Seg Neutrophils # Seg Neutrophils # Man Lymphocytes # (Manual) Monocytes % (Manual) Eosinophils % (Manual) Monocytes # (Manual) Eosinophils # (Manual) D-Dimer 414.52 H Heparin Anti-Xa Level ABG pH POC ABG pCO2 POC ABG pO2 ABG pO2 ABG HCO3 ABG O2 Saturation ABG Base Excess ABG Hemoglobin ABG Oxyhemoglobin VBG pH ABG Sodium ABG Potassium ABG Glucose Oxyhemoglobin Sodium Potassium Chloride Carbon Dioxide BUN Creatinine Glucose POC Glucose 179 H 213 H Lactic Acid Calcium Ferritin AST Alkaline Phosphatase Magnesium Lactate Dehydrogenase Total Creatine Kinase CK-MB (CK-2) C-Reactive Protein Total Protein Albumin Troponin T HDL Cholesterol Arterial Blood Glucose Urine WBC (Auto) Urine Creatinine Urine Total Protein Phenytoin Coronavirus (PCR) Crossmatch 06/04/20 06/05/20 06/05/20 18:25 00:16 05:00 WBC RBC Hgb Hct MCHC RDW Lymph % (Auto) [place] % (Auto) Eos % (Auto) Lymph # [place] # Lymph # (Auto) [place] # (Auto) Eos # (Auto) Seg Neutrophils % Seg Neuts % (Manual) Lymphocytes % (Manual) Seg Neutrophils # Seg Neutrophils # Man Lymphocytes # (Manual) Monocytes % (Manual) Eosinophils % (Manual) Monocytes # (Manual) Eosinophils # (Manual) D-Dimer Heparin Anti-Xa Level ABG pH 7.286 L POC ABG pCO2 POC ABG pO2 ABG pO2 96.2 H ABG HCO3 ABG O2 Saturation ABG Base Excess -6.3 L ABG Hemoglobin 8.8 L ABG Oxyhemoglobin VBG pH ABG Sodium ABG Potassium ABG Glucose Oxyhemoglobin 94.8 L Sodium Potassium Chloride Carbon Dioxide BUN Creatinine Glucose POC Glucose 238 H 183 H Lactic Acid Calcium Ferritin AST Alkaline Phosphatase Magnesium Lactate Dehydrogenase Total Creatine Kinase CK-MB (CK-2) C-Reactive Protein Total Protein Albumin Troponin T HDL Cholesterol Arterial Blood Glucose Urine WBC (Auto) Urine Creatinine Urine Total Protein Phenytoin Coronavirus (PCR) Crossmatch 06/05/20 06/05/20 06/05/20 05:39 07:25 07:25 WBC RBC 2.97 L Hgb 8.7 L Hct 25.7 L MCHC RDW 16.0 H Lymph % (Auto) 8.8 L [place] % (Auto) 13.3 H Eos % (Auto) Lymph # 0.8 L [place] # 1.3 H Lymph # (Auto) [place] # (Auto) Eos # (Auto) Seg Neutrophils % 77.3 H Seg Neuts % (Manual) Lymphocytes % (Manual) Seg Neutrophils # Seg Neutrophils # Man Lymphocytes # (Manual) Monocytes % (Manual) Eosinophils % (Manual) Monocytes # (Manual) Eosinophils # (Manual) D-Dimer Heparin Anti-Xa Level ABG pH POC ABG pCO2 POC ABG pO2 ABG pO2 ABG HCO3 ABG O2 Saturation ABG Base Excess ABG Hemoglobin ABG Oxyhemoglobin VBG pH ABG Sodium ABG Potassium ABG Glucose Oxyhemoglobin Sodium 133 L Potassium Chloride Carbon Dioxide 17 L BUN 89 H Creatinine 2.8 H Glucose 176 H POC Glucose 149 H Lactic Acid Calcium 7.7 L Ferritin AST Alkaline Phosphatase Magnesium Lactate Dehydrogenase Total Creatine Kinase CK-MB (CK-2) C-Reactive Protein Total Protein 4.2 L Albumin 1.9 L Troponin T HDL Cholesterol Arterial Blood Glucose Urine WBC (Auto) Urine Creatinine Urine Total Protein Phenytoin Coronavirus (PCR) Crossmatch 06/05/20 06/05/20 06/05/20 07:25 12:05 15:41 WBC RBC Hgb Hct MCHC RDW Lymph % (Auto) [place] % (Auto) Eos % (Auto) Lymph # [place] # Lymph # (Auto) [place] # (Auto) Eos # (Auto) Seg Neutrophils % Seg Neuts % (Manual) Lymphocytes % (Manual) Seg Neutrophils # Seg Neutrophils # Man Lymphocytes # (Manual) Monocytes % (Manual) Eosinophils % (Manual) Monocytes # (Manual) Eosinophils # (Manual) D-Dimer Heparin Anti-Xa Level 0.76 H 0.81 H ABG pH POC ABG pCO2 POC ABG pO2 ABG pO2 ABG HCO3 ABG O2 Saturation ABG Base Excess ABG Hemoglobin ABG Oxyhemoglobin VBG pH ABG Sodium ABG Potassium ABG Glucose Oxyhemoglobin Sodium Potassium Chloride Carbon Dioxide BUN Creatinine Glucose POC Glucose 198 H Lactic Acid Calcium Ferritin AST Alkaline Phosphatase Magnesium Lactate Dehydrogenase Total Creatine Kinase CK-MB (CK-2) C-Reactive Protein Total Protein Albumin Troponin T HDL Cholesterol Arterial Blood Glucose Urine WBC (Auto) Urine Creatinine Urine Total Protein Phenytoin Coronavirus (PCR) Crossmatch 06/05/20 06/05/20 06/06/20 18:08 23:25 04:00 WBC RBC Hgb Hct MCHC RDW Lymph % (Auto) [place] % (Auto) Eos % (Auto) Lymph # [place] # Lymph # (Auto) [place] # (Auto) Eos # (Auto) Seg Neutrophils % Seg Neuts % (Manual) Lymphocytes % (Manual) Seg Neutrophils # Seg Neutrophils # Man Lymphocytes # (Manual) Monocytes % (Manual) Eosinophils % (Manual) Monocytes # (Manual) Eosinophils # (Manual) D-Dimer Heparin Anti-Xa Level ABG pH POC ABG pCO2 POC ABG pO2 ABG pO2 ABG HCO3 ABG O2 Saturation ABG Base Excess ABG Hemoglobin ABG Oxyhemoglobin VBG pH ABG Sodium ABG Potassium ABG Glucose Oxyhemoglobin Sodium Potassium Chloride Carbon Dioxide BUN Creatinine Glucose POC Glucose 223 H 169 H Lactic Acid Calcium Ferritin AST Alkaline Phosphatase Magnesium Lactate Dehydrogenase Total Creatine Kinase CK-MB (CK-2) C-Reactive Protein Total Protein Albumin Troponin T HDL Cholesterol Arterial Blood Glucose Urine WBC (Auto) 15.0 H Urine Creatinine Urine Total Protein Phenytoin Coronavirus (PCR) Crossmatch 06/06/20 06/06/20 06/06/20 04:00 05:33 05:38 WBC RBC 2.97 L Hgb 8.7 L Hct 26.8 L MCHC RDW 16.8 H Lymph % (Auto) [place] % (Auto) Eos % (Auto) Lymph # [place] # Lymph # (Auto) [place] # (Auto) Eos # (Auto) Seg Neutrophils % Seg Neuts % (Manual) Lymphocytes % (Manual) Seg Neutrophils # Seg Neutrophils # Man Lymphocytes # (Manual) Monocytes % (Manual) Eosinophils % (Manual) Monocytes # (Manual) Eosinophils # (Manual) D-Dimer Heparin Anti-Xa Level ABG pH POC ABG pCO2 POC ABG pO2 ABG pO2 ABG HCO3 ABG O2 Saturation ABG Base Excess ABG Hemoglobin ABG Oxyhemoglobin VBG pH ABG Sodium ABG Potassium ABG Glucose Oxyhemoglobin Sodium Potassium Chloride Carbon Dioxide BUN Creatinine Glucose POC Glucose 186 H Lactic Acid Calcium Ferritin AST Alkaline Phosphatase Magnesium Lactate Dehydrogenase Total Creatine Kinase CK-MB (CK-2) C-Reactive Protein Total Protein Albumin Troponin T HDL Cholesterol Arterial Blood Glucose Urine WBC (Auto) Urine Creatinine 82.2 H Urine Total Protein 196 H Phenytoin Coronavirus (PCR) Crossmatch 06/06/20 06/06/20 06/06/20 05:38 12:25 17:03 WBC RBC Hgb Hct MCHC RDW Lymph % (Auto) [place] % (Auto) Eos % (Auto) Lymph # [place] # Lymph # (Auto) [place] # (Auto) Eos # (Auto) Seg Neutrophils % Seg Neuts % (Manual) Lymphocytes % (Manual) Seg Neutrophils # Seg Neutrophils # Man Lymphocytes # (Manual) Monocytes % (Manual) Eosinophils % (Manual) Monocytes # (Manual) Eosinophils # (Manual) D-Dimer Heparin Anti-Xa Level ABG pH POC ABG pCO2 POC ABG pO2 ABG pO2 ABG HCO3 ABG O2 Saturation ABG Base Excess ABG Hemoglobin ABG Oxyhemoglobin VBG pH ABG Sodium ABG Potassium ABG Glucose Oxyhemoglobin Sodium 134 L Potassium 5.2 H Chloride Carbon Dioxide 18 L BUN 97 H Creatinine 2.5 H Glucose 193 H POC Glucose 239 H 252 H Lactic Acid Calcium 7.5 L Ferritin AST Alkaline Phosphatase Magnesium Lactate Dehydrogenase Total Creatine Kinase CK-MB (CK-2) C-Reactive Protein Total Protein 4.1 L Albumin 1.9 L Troponin T HDL Cholesterol Arterial Blood Glucose Urine WBC (Auto) Urine Creatinine Urine Total Protein Phenytoin Coronavirus (PCR) Crossmatch 06/07/20 06/07/20 06/07/20 00:16 01:49 04:00 WBC RBC 2.91 L Hgb 8.4 L Hct 25.0 L MCHC RDW 16.1 H Lymph % (Auto) 5.7 L [place] % (Auto) 10.5 H Eos % (Auto) Lymph # 0.6 L [place] # 1.1 H Lymph # (Auto) [place] # (Auto) Eos # (Auto) Seg Neutrophils % 83.6 H Seg Neuts % (Manual) Lymphocytes % (Manual) Seg Neutrophils # 9.1 H Seg Neutrophils # Man Lymphocytes # (Manual) Monocytes % (Manual) Eosinophils % (Manual) Monocytes # (Manual) Eosinophils # (Manual) D-Dimer Heparin Anti-Xa Level 0.26 L ABG pH POC ABG pCO2 POC ABG pO2 ABG pO2 ABG HCO3 ABG O2 Saturation ABG Base Excess ABG Hemoglobin ABG Oxyhemoglobin VBG pH ABG Sodium ABG Potassium ABG Glucose Oxyhemoglobin Sodium Potassium Chloride Carbon Dioxide BUN Creatinine Glucose POC Glucose 173 H Lactic Acid Calcium Ferritin AST Alkaline Phosphatase Magnesium Lactate Dehydrogenase Total Creatine Kinase CK-MB (CK-2) C-Reactive Protein Total Protein Albumin Troponin T HDL Cholesterol Arterial Blood Glucose Urine WBC (Auto) Urine Creatinine Urine Total Protein Phenytoin Coronavirus (PCR) Crossmatch 06/07/20 06/07/20 06/07/20 04:00 04:54 05:51 WBC RBC Hgb Hct MCHC RDW Lymph % (Auto) [place] % (Auto) Eos % (Auto) Lymph # [place] # Lymph # (Auto) [place] # (Auto) Eos # (Auto) Seg Neutrophils % Seg Neuts % (Manual) Lymphocytes % (Manual) Seg Neutrophils # Seg Neutrophils # Man Lymphocytes # (Manual) Monocytes % (Manual) Eosinophils % (Manual) Monocytes # (Manual) Eosinophils # (Manual) D-Dimer Heparin Anti-Xa Level ABG pH 7.317 L POC ABG pCO2 POC ABG pO2 ABG pO2 71.4 L ABG HCO3 ABG O2 Saturation 94.3 L ABG Base Excess -4.8 L ABG Hemoglobin 7.1 L ABG Oxyhemoglobin VBG pH ABG Sodium ABG Potassium ABG Glucose Oxyhemoglobin 92.2 L Sodium 133 L Potassium Chloride Carbon Dioxide 18 L BUN 100 H Creatinine 2.5 H Glucose 158 H POC Glucose 168 H Lactic Acid Calcium 7.6 L Ferritin AST Alkaline Phosphatase Magnesium Lactate Dehydrogenase Total Creatine Kinase CK-MB (CK-2) C-Reactive Protein Total Protein 4.7 L Albumin 2.0 L Troponin T HDL Cholesterol Arterial Blood Glucose Urine WBC (Auto) Urine Creatinine Urine Total Protein Phenytoin Coronavirus (PCR) Crossmatch 06/07/20 06/07/20 06/07/20 12:03 17:17 20:10 WBC RBC Hgb Hct MCHC RDW Lymph % (Auto) [place] % (Auto) Eos % (Auto) Lymph # [place] # Lymph # (Auto) [place] # (Auto) Eos # (Auto) Seg Neutrophils % Seg Neuts % (Manual) Lymphocytes % (Manual) Seg Neutrophils # Seg Neutrophils # Man Lymphocytes # (Manual) Monocytes % (Manual) Eosinophils % (Manual) Monocytes # (Manual) Eosinophils # (Manual) D-Dimer Heparin Anti-Xa Level 0.17 L ABG pH POC ABG pCO2 POC ABG pO2 ABG pO2 ABG HCO3 ABG O2 Saturation ABG Base Excess ABG Hemoglobin ABG Oxyhemoglobin VBG pH ABG Sodium ABG Potassium ABG Glucose Oxyhemoglobin Sodium Potassium Chloride Carbon Dioxide BUN Creatinine Glucose POC Glucose 276 H 281 H Lactic Acid Calcium Ferritin AST Alkaline Phosphatase Magnesium Lactate Dehydrogenase Total Creatine Kinase CK-MB (CK-2) C-Reactive Protein Total Protein Albumin Troponin T HDL Cholesterol Arterial Blood Glucose Urine WBC (Auto) Urine Creatinine Urine Total Protein Phenytoin Coronavirus (PCR) Crossmatch 06/08/20 06/08/20 06/08/20 00:02 04:47 04:47 WBC 16.4 H RBC 3.07 L Hgb 8.6 L Hct 26.5 L MCHC RDW 16.3 H Lymph % (Auto) [place] % (Auto) Eos % (Auto) Lymph # [place] # Lymph # (Auto) [place] # (Auto) Eos # (Auto) Seg Neutrophils % Seg Neuts % (Manual) 90.0 H Lymphocytes % (Manual) 3.0 L Seg Neutrophils # Seg Neutrophils # Man 14.8 H Lymphocytes # (Manual) 0.5 L Monocytes % (Manual) Eosinophils % (Manual) Monocytes # (Manual) 1.1 H Eosinophils # (Manual) D-Dimer Heparin Anti-Xa Level ABG pH POC ABG pCO2 POC ABG pO2 ABG pO2 ABG HCO3 ABG O2 Saturation ABG Base Excess ABG Hemoglobin ABG Oxyhemoglobin VBG pH ABG Sodium ABG Potassium ABG Glucose Oxyhemoglobin Sodium 129 L Potassium Chloride 95.6 L Carbon Dioxide 17 L BUN 106 H Creatinine 2.5 H Glucose 213 H POC Glucose 242 H Lactic Acid Calcium 7.6 L Ferritin AST Alkaline Phosphatase Magnesium Lactate Dehydrogenase Total Creatine Kinase CK-MB (CK-2) C-Reactive Protein Total Protein 5.0 L Albumin 2.1 L Troponin T HDL Cholesterol Arterial Blood Glucose Urine WBC (Auto) Urine Creatinine Urine Total Protein Phenytoin Coronavirus (PCR) Crossmatch 06/08/20 06/08/20 06/08/20 05:40 11:55 17:54 WBC RBC Hgb Hct MCHC RDW Lymph % (Auto) [place] % (Auto) Eos % (Auto) Lymph # [place] # Lymph # (Auto) [place] # (Auto) Eos # (Auto) Seg Neutrophils % Seg Neuts % (Manual) Lymphocytes % (Manual) Seg Neutrophils # Seg Neutrophils # Man Lymphocytes # (Manual) Monocytes % (Manual) Eosinophils % (Manual) Monocytes # (Manual) Eosinophils # (Manual) D-Dimer Heparin Anti-Xa Level ABG pH POC ABG pCO2 POC ABG pO2 ABG pO2 ABG HCO3 ABG O2 Saturation ABG Base Excess ABG Hemoglobin ABG Oxyhemoglobin VBG pH ABG Sodium ABG Potassium ABG Glucose Oxyhemoglobin Sodium Potassium Chloride Carbon Dioxide BUN Creatinine Glucose POC Glucose 221 H 218 H 163 H Lactic Acid Calcium Ferritin AST Alkaline Phosphatase Magnesium Lactate Dehydrogenase Total Creatine Kinase CK-MB (CK-2) C-Reactive Protein Total Protein Albumin Troponin T HDL Cholesterol Arterial Blood Glucose Urine WBC (Auto) Urine Creatinine Urine Total Protein Phenytoin Coronavirus (PCR) Crossmatch 06/08/20 06/09/20 06/09/20 22:01 00:09 05:16 WBC 19.0 H RBC 3.35 L Hgb 9.2 L Hct 28.5 L MCHC RDW 16.3 H Lymph % (Auto) [place] % (Auto) Eos % (Auto) Lymph # [place] # Lymph # (Auto) [place] # (Auto) Eos # (Auto) Seg Neutrophils % Seg Neuts % (Manual) 85.0 H Lymphocytes % (Manual) 7.0 L Seg Neutrophils # Seg Neutrophils # Man 16.2 H Lymphocytes # (Manual) Monocytes % (Manual) Eosinophils % (Manual) Monocytes # (Manual) 1.3 H Eosinophils # (Manual) D-Dimer Heparin Anti-Xa Level ABG pH POC ABG pCO2 POC ABG pO2 ABG pO2 ABG HCO3 ABG O2 Saturation ABG Base Excess ABG Hemoglobin ABG Oxyhemoglobin VBG pH ABG Sodium ABG Potassium ABG Glucose Oxyhemoglobin Sodium Potassium Chloride Carbon Dioxide BUN Creatinine Glucose POC Glucose 182 H 150 H Lactic Acid Calcium Ferritin AST Alkaline Phosphatase Magnesium Lactate Dehydrogenase Total Creatine Kinase CK-MB (CK-2) C-Reactive Protein Total Protein Albumin Troponin T HDL Cholesterol Arterial Blood Glucose Urine WBC (Auto) Urine Creatinine Urine Total Protein Phenytoin Coronavirus (PCR) Crossmatch 06/09/20 06/09/20 06/09/20 05:16 05:24 11:29 WBC RBC Hgb Hct MCHC RDW Lymph % (Auto) [place] % (Auto) Eos % (Auto) Lymph # [place] # Lymph # (Auto) [place] # (Auto) Eos # (Auto) Seg Neutrophils % Seg Neuts % (Manual) Lymphocytes % (Manual) Seg Neutrophils # Seg Neutrophils # Man Lymphocytes # (Manual) Monocytes % (Manual) Eosinophils % (Manual) Monocytes # (Manual) Eosinophils # (Manual) D-Dimer Heparin Anti-Xa Level ABG pH POC ABG pCO2 POC ABG pO2 ABG pO2 ABG HCO3 ABG O2 Saturation ABG Base Excess ABG Hemoglobin ABG Oxyhemoglobin VBG pH ABG Sodium ABG Potassium ABG Glucose Oxyhemoglobin Sodium 133 L Potassium Chloride Carbon Dioxide 19 L BUN 109 H Creatinine 2.1 H Glucose 133 H POC Glucose 128 H 119 H Lactic Acid Calcium 7.7 L Ferritin AST Alkaline Phosphatase < 5 L Magnesium Lactate Dehydrogenase Total Creatine Kinase CK-MB (CK-2) C-Reactive Protein Total Protein 4.6 L Albumin < 0.2 L Troponin T HDL Cholesterol Arterial Blood Glucose Urine WBC (Auto) Urine Creatinine Urine Total Protein Phenytoin Coronavirus (PCR) Crossmatch 06/09/20 06/10/20 06/10/20 17:32 00:00 05:49 WBC RBC Hgb Hct MCHC RDW Lymph % (Auto) [place] % (Auto) Eos % (Auto) Lymph # [place] # Lymph # (Auto) [place] # (Auto) Eos # (Auto) Seg Neutrophils % Seg Neuts % (Manual) Lymphocytes % (Manual) Seg Neutrophils # Seg Neutrophils # Man Lymphocytes # (Manual) Monocytes % (Manual) Eosinophils % (Manual) Monocytes # (Manual) Eosinophils # (Manual) D-Dimer Heparin Anti-Xa Level 0.19 L ABG pH POC ABG pCO2 POC ABG pO2 ABG pO2 ABG HCO3 ABG O2 Saturation ABG Base Excess ABG Hemoglobin ABG Oxyhemoglobin VBG pH ABG Sodium ABG Potassium ABG Glucose Oxyhemoglobin Sodium Potassium Chloride Carbon Dioxide BUN Creatinine Glucose POC Glucose 106 H 117 H Lactic Acid Calcium Ferritin AST Alkaline Phosphatase Magnesium Lactate Dehydrogenase Total Creatine Kinase CK-MB (CK-2) C-Reactive Protein Total Protein Albumin Troponin T HDL Cholesterol Arterial Blood Glucose Urine WBC (Auto) Urine Creatinine Urine Total Protein Phenytoin Coronavirus (PCR) Crossmatch 06/10/20 06/10/20 06/10/20 05:54 07:40 11:40 WBC RBC Hgb Hct MCHC RDW Lymph % (Auto) [place] % (Auto) Eos % (Auto) Lymph # [place] # Lymph # (Auto) [place] # (Auto) Eos # (Auto) Seg Neutrophils % Seg Neuts % (Manual) Lymphocytes % (Manual) Seg Neutrophils # Seg Neutrophils # Man Lymphocytes # (Manual) Monocytes % (Manual) Eosinophils % (Manual) Monocytes # (Manual) Eosinophils # (Manual) D-Dimer Heparin Anti-Xa Level ABG pH POC ABG pCO2 POC ABG pO2 ABG pO2 ABG HCO3 ABG O2 Saturation ABG Base Excess ABG Hemoglobin ABG Oxyhemoglobin VBG pH ABG Sodium ABG Potassium ABG Glucose Oxyhemoglobin Sodium 146 H D Potassium Chloride Carbon Dioxide 20 L BUN 99 H Creatinine 1.9 H Glucose 121 H POC Glucose 127 H 138 H Lactic Acid Calcium 8.2 L Ferritin AST Alkaline Phosphatase Magnesium Lactate Dehydrogenase Total Creatine Kinase CK-MB (CK-2) C-Reactive Protein Total Protein Albumin Troponin T HDL Cholesterol Arterial Blood Glucose Urine WBC (Auto) Urine Creatinine Urine Total Protein Phenytoin Coronavirus (PCR) Crossmatch 06/10/20 06/10/20 06/10/20 14:44 17:31 23:22 WBC RBC Hgb Hct MCHC RDW Lymph % (Auto) [place] % (Auto) Eos % (Auto) Lymph # [place] # Lymph # (Auto) [place] # (Auto) Eos # (Auto) Seg Neutrophils % Seg Neuts % (Manual) Lymphocytes % (Manual) Seg Neutrophils # Seg Neutrophils # Man Lymphocytes # (Manual) Monocytes % (Manual) Eosinophils % (Manual) Monocytes # (Manual) Eosinophils # (Manual) D-Dimer Heparin Anti-Xa Level 0.17 L ABG pH POC ABG pCO2 POC ABG pO2 ABG pO2 ABG HCO3 ABG O2 Saturation ABG Base Excess ABG Hemoglobin ABG Oxyhemoglobin VBG pH ABG Sodium ABG Potassium ABG Glucose Oxyhemoglobin Sodium Potassium Chloride Carbon Dioxide BUN Creatinine Glucose POC Glucose 128 H 114 H Lactic Acid Calcium Ferritin AST Alkaline Phosphatase Magnesium Lactate Dehydrogenase Total Creatine Kinase CK-MB (CK-2) C-Reactive Protein Total Protein Albumin Troponin T HDL Cholesterol Arterial Blood Glucose Urine WBC (Auto) Urine Creatinine Urine Total Protein Phenytoin Coronavirus (PCR) Crossmatch 06/11/20 06/11/20 06/11/20 00:22 03:45 03:45 WBC 14.6 H RBC 2.77 L Hgb 7.9 L Hct 24.3 L MCHC RDW 16.8 H Lymph % (Auto) 6.6 L [place] % (Auto) 8.5 H Eos % (Auto) Lymph # 1.0 L [place] # 1.2 H Lymph # (Auto) [place] # (Auto) Eos # (Auto) Seg Neutrophils % 82.9 H Seg Neuts % (Manual) Lymphocytes % (Manual) Seg Neutrophils # 12.1 H Seg Neutrophils # Man Lymphocytes # (Manual) Monocytes % (Manual) Eosinophils % (Manual) Monocytes # (Manual) Eosinophils # (Manual) D-Dimer Heparin Anti-Xa Level 0.24 L ABG pH POC ABG pCO2 POC ABG pO2 ABG pO2 ABG HCO3 ABG O2 Saturation ABG Base Excess ABG Hemoglobin ABG Oxyhemoglobin VBG pH ABG Sodium ABG Potassium ABG Glucose Oxyhemoglobin Sodium Potassium Chloride Carbon Dioxide 20 L BUN 88 H Creatinine 1.5 H Glucose 111 H POC Glucose Lactic Acid Calcium 8.2 L Ferritin AST Alkaline Phosphatase Magnesium Lactate Dehydrogenase Total Creatine Kinase CK-MB (CK-2) C-Reactive Protein Total Protein Albumin Troponin T HDL Cholesterol Arterial Blood Glucose Urine WBC (Auto) Urine Creatinine Urine Total Protein Phenytoin Coronavirus (PCR) Crossmatch 06/11/20 06/11/20 06/11/20 06:03 10:22 11:11 WBC RBC Hgb Hct MCHC RDW Lymph % (Auto) [place] % (Auto) Eos % (Auto) Lymph # [place] # Lymph # (Auto) [place] # (Auto) Eos # (Auto) Seg Neutrophils % Seg Neuts % (Manual) Lymphocytes % (Manual) Seg Neutrophils # Seg Neutrophils # Man Lymphocytes # (Manual) Monocytes % (Manual) Eosinophils % (Manual) Monocytes # (Manual) Eosinophils # (Manual) D-Dimer Heparin Anti-Xa Level 0.26 L ABG pH POC ABG pCO2 POC ABG pO2 ABG pO2 ABG HCO3 ABG O2 Saturation ABG Base Excess ABG Hemoglobin 9.6 L ABG Oxyhemoglobin VBG pH ABG Sodium ABG Potassium ABG Glucose Oxyhemoglobin Sodium Potassium Chloride Carbon Dioxide BUN Creatinine Glucose POC Glucose 114 H Lactic Acid Calcium Ferritin AST Alkaline Phosphatase Magnesium Lactate Dehydrogenase Total Creatine Kinase CK-MB (CK-2) C-Reactive Protein Total Protein Albumin Troponin T HDL Cholesterol Arterial Blood Glucose Urine WBC (Auto) Urine Creatinine Urine Total Protein Phenytoin Coronavirus (PCR) Crossmatch 06/11/20 06/11/20 06/12/20 12:24 17:24 00:21 WBC RBC Hgb Hct MCHC RDW Lymph % (Auto) [place] % (Auto) Eos % (Auto) Lymph # [place] # Lymph # (Auto) [place] # (Auto) Eos # (Auto) Seg Neutrophils % Seg Neuts % (Manual) Lymphocytes % (Manual) Seg Neutrophils # Seg Neutrophils # Man Lymphocytes # (Manual) Monocytes % (Manual) Eosinophils % (Manual) Monocytes # (Manual) Eosinophils # (Manual) D-Dimer Heparin Anti-Xa Level ABG pH POC ABG pCO2 POC ABG pO2 ABG pO2 ABG HCO3 ABG O2 Saturation ABG Base Excess ABG Hemoglobin ABG Oxyhemoglobin VBG pH ABG Sodium ABG Potassium ABG Glucose Oxyhemoglobin Sodium Potassium Chloride Carbon Dioxide BUN Creatinine Glucose POC Glucose 119 H 126 H 117 H Lactic Acid Calcium Ferritin AST Alkaline Phosphatase Magnesium Lactate Dehydrogenase Total Creatine Kinase CK-MB (CK-2) C-Reactive Protein Total Protein Albumin Troponin T HDL Cholesterol Arterial Blood Glucose Urine WBC (Auto) Urine Creatinine Urine Total Protein Phenytoin Coronavirus (PCR) Crossmatch 06/12/20 06/12/20 06/12/20 02:46 02:46 05:46 WBC 13.2 H RBC 2.83 L Hgb 8.3 L Hct 24.3 L MCHC RDW 16.6 H Lymph % (Auto) 6.2 L [place] % (Auto) 9.5 H Eos % (Auto) Lymph # 0.8 L [place] # 1.3 H Lymph # (Auto) [place] # (Auto) Eos # (Auto) Seg Neutrophils % 81.9 H Seg Neuts % (Manual) Lymphocytes % (Manual) Seg Neutrophils # 10.9 H Seg Neutrophils # Man Lymphocytes # (Manual) Monocytes % (Manual) Eosinophils % (Manual) Monocytes # (Manual) Eosinophils # (Manual) D-Dimer Heparin Anti-Xa Level ABG pH POC ABG pCO2 POC ABG pO2 ABG pO2 ABG HCO3 ABG O2 Saturation ABG Base Excess ABG Hemoglobin ABG Oxyhemoglobin VBG pH ABG Sodium ABG Potassium ABG Glucose Oxyhemoglobin Sodium Potassium 3.5 L Chloride Carbon Dioxide BUN 77 H Creatinine 1.3 H Glucose POC Glucose 132 H Lactic Acid Calcium 8.3 L Ferritin AST Alkaline Phosphatase Magnesium Lactate Dehydrogenase Total Creatine Kinase CK-MB (CK-2) C-Reactive Protein Total Protein Albumin Troponin T HDL Cholesterol Arterial Blood Glucose Urine WBC (Auto) Urine Creatinine Urine Total Protein Phenytoin Coronavirus (PCR) Crossmatch 06/12/20 06/12/20 06/12/20 09:20 12:16 17:48 WBC RBC Hgb Hct MCHC RDW Lymph % (Auto) [place] % (Auto) Eos % (Auto) Lymph # [place] # Lymph # (Auto) [place] # (Auto) Eos # (Auto) Seg Neutrophils % Seg Neuts % (Manual) Lymphocytes % (Manual) Seg Neutrophils # Seg Neutrophils # Man Lymphocytes # (Manual) Monocytes % (Manual) Eosinophils % (Manual) Monocytes # (Manual) Eosinophils # (Manual) D-Dimer Heparin Anti-Xa Level ABG pH POC ABG pCO2 POC ABG pO2 ABG pO2 91.1 H ABG HCO3 ABG O2 Saturation ABG Base Excess ABG Hemoglobin ABG Oxyhemoglobin VBG pH ABG Sodium ABG Potassium ABG Glucose Oxyhemoglobin 94.8 L Sodium Potassium Chloride Carbon Dioxide BUN Creatinine Glucose POC Glucose 167 H 182 H Lactic Acid Calcium Ferritin AST Alkaline Phosphatase Magnesium Lactate Dehydrogenase Total Creatine Kinase CK-MB (CK-2) C-Reactive Protein Total Protein Albumin Troponin T HDL Cholesterol Arterial Blood Glucose Urine WBC (Auto) Urine Creatinine Urine Total Protein Phenytoin Coronavirus (PCR) Crossmatch 06/13/20 06/13/20 06/13/20 00:08 05:37 09:09 WBC RBC Hgb Hct MCHC RDW Lymph % (Auto) [place] % (Auto) Eos % (Auto) Lymph # [place] # Lymph # (Auto) [place] # (Auto) Eos # (Auto) Seg Neutrophils % Seg Neuts % (Manual) Lymphocytes % (Manual) Seg Neutrophils # Seg Neutrophils # Man Lymphocytes # (Manual) Monocytes % (Manual) Eosinophils % (Manual) Monocytes # (Manual) Eosinophils # (Manual) D-Dimer Heparin Anti-Xa Level 0.86 H ABG pH POC ABG pCO2 POC ABG pO2 ABG pO2 ABG HCO3 ABG O2 Saturation ABG Base Excess ABG Hemoglobin ABG Oxyhemoglobin VBG pH ABG Sodium ABG Potassium ABG Glucose Oxyhemoglobin Sodium Potassium Chloride Carbon Dioxide BUN Creatinine Glucose POC Glucose 142 H 119 H Lactic Acid Calcium Ferritin AST Alkaline Phosphatase Magnesium Lactate Dehydrogenase Total Creatine Kinase CK-MB (CK-2) C-Reactive Protein Total Protein Albumin Troponin T HDL Cholesterol Arterial Blood Glucose Urine WBC (Auto) Urine Creatinine Urine Total Protein Phenytoin Coronavirus (PCR) Crossmatch 06/13/20 06/13/20 06/13/20 12:28 17:55 21:17 WBC RBC Hgb Hct MCHC RDW Lymph % (Auto) [place] % (Auto) Eos % (Auto) Lymph # [place] # Lymph # (Auto) [place] # (Auto) Eos # (Auto) Seg Neutrophils % Seg Neuts % (Manual) Lymphocytes % (Manual) Seg Neutrophils # Seg Neutrophils # Man Lymphocytes # (Manual) Monocytes % (Manual) Eosinophils % (Manual) Monocytes # (Manual) Eosinophils # (Manual) D-Dimer Heparin Anti-Xa Level ABG pH POC ABG pCO2 POC ABG pO2 ABG pO2 ABG HCO3 ABG O2 Saturation ABG Base Excess ABG Hemoglobin ABG Oxyhemoglobin VBG pH ABG Sodium ABG Potassium ABG Glucose Oxyhemoglobin Sodium Potassium Chloride Carbon Dioxide BUN 61 H Creatinine Glucose 131 H POC Glucose 165 H 174 H Lactic Acid Calcium Ferritin AST Alkaline Phosphatase Magnesium Lactate Dehydrogenase Total Creatine Kinase CK-MB (CK-2) C-Reactive Protein Total Protein Albumin Troponin T HDL Cholesterol Arterial Blood Glucose Urine WBC (Auto) Urine Creatinine Urine Total Protein Phenytoin Coronavirus (PCR) Crossmatch 06/13/20 06/13/20 06/14/20 21:17 23:50 05:34 WBC RBC Hgb Hct MCHC RDW Lymph % (Auto) [place] % (Auto) Eos % (Auto) Lymph # [place] # Lymph # (Auto) [place] # (Auto) Eos # (Auto) Seg Neutrophils % Seg Neuts % (Manual) Lymphocytes % (Manual) Seg Neutrophils # Seg Neutrophils # Man Lymphocytes # (Manual) Monocytes % (Manual) Eosinophils % (Manual) Monocytes # (Manual) Eosinophils # (Manual) D-Dimer Heparin Anti-Xa Level 0.72 H ABG pH POC ABG pCO2 POC ABG pO2 ABG pO2 ABG HCO3 ABG O2 Saturation ABG Base Excess ABG Hemoglobin ABG Oxyhemoglobin VBG pH ABG Sodium ABG Potassium ABG Glucose Oxyhemoglobin Sodium 146 H Potassium Chloride 107.6 H Carbon Dioxide BUN 61 H Creatinine 1.3 H Glucose 135 H POC Glucose 146 H Lactic Acid Calcium Ferritin AST Alkaline Phosphatase Magnesium Lactate Dehydrogenase Total Creatine Kinase CK-MB (CK-2) C-Reactive Protein Total Protein Albumin Troponin T HDL Cholesterol Arterial Blood Glucose Urine WBC (Auto) Urine Creatinine Urine Total Protein Phenytoin Coronavirus (PCR) Crossmatch 06/14/20 06/14/20 06/14/20 06:11 09:28 11:30 WBC RBC Hgb Hct MCHC RDW Lymph % (Auto) [place] % (Auto) Eos % (Auto) Lymph # [place] # Lymph # (Auto) [place] # (Auto) Eos # (Auto) Seg Neutrophils % Seg Neuts % (Manual) Lymphocytes % (Manual) Seg Neutrophils # Seg Neutrophils # Man Lymphocytes # (Manual) Monocytes % (Manual) Eosinophils % (Manual) Monocytes # (Manual) Eosinophils # (Manual) D-Dimer Heparin Anti-Xa Level 0.90 H ABG pH POC ABG pCO2 POC ABG pO2 ABG pO2 ABG HCO3 ABG O2 Saturation ABG Base Excess ABG Hemoglobin ABG Oxyhemoglobin VBG pH ABG Sodium ABG Potassium ABG Glucose Oxyhemoglobin Sodium Potassium Chloride Carbon Dioxide BUN Creatinine Glucose POC Glucose 141 H 186 H Lactic Acid Calcium Ferritin AST Alkaline Phosphatase Magnesium Lactate Dehydrogenase Total Creatine Kinase CK-MB (CK-2) C-Reactive Protein Total Protein Albumin Troponin T HDL Cholesterol Arterial Blood Glucose Urine WBC (Auto) Urine Creatinine Urine Total Protein Phenytoin Coronavirus (PCR) Crossmatch 06/14/20 06/14/20 06/14/20 16:07 18:16 23:51 WBC RBC Hgb Hct MCHC RDW Lymph % (Auto) [place] % (Auto) Eos % (Auto) Lymph # [place] # Lymph # (Auto) [place] # (Auto) Eos # (Auto) Seg Neutrophils % Seg Neuts % (Manual) Lymphocytes % (Manual) Seg Neutrophils # Seg Neutrophils # Man Lymphocytes # (Manual) Monocytes % (Manual) Eosinophils % (Manual) Monocytes # (Manual) Eosinophils # (Manual) D-Dimer Heparin Anti-Xa Level 0.82 H ABG pH POC ABG pCO2 POC ABG pO2 ABG pO2 ABG HCO3 ABG O2 Saturation ABG Base Excess ABG Hemoglobin ABG Oxyhemoglobin VBG pH ABG Sodium ABG Potassium ABG Glucose Oxyhemoglobin Sodium Potassium Chloride Carbon Dioxide BUN Creatinine Glucose POC Glucose 106 H 154 H Lactic Acid Calcium Ferritin AST Alkaline Phosphatase Magnesium Lactate Dehydrogenase Total Creatine Kinase CK-MB (CK-2) C-Reactive Protein Total Protein Albumin Troponin T HDL Cholesterol Arterial Blood Glucose Urine WBC (Auto) Urine Creatinine Urine Total Protein Phenytoin Coronavirus (PCR) Crossmatch 06/15/20 06/15/20 06/15/20 04:24 04:24 05:59 WBC RBC 2.75 L Hgb 7.9 L Hct 24.0 L MCHC RDW 16.4 H Lymph % (Auto) 12.9 L [place] % (Auto) 8.7 H Eos % (Auto) 4.6 H Lymph # 1.1 L [place] # Lymph # (Auto) [place] # (Auto) Eos # (Auto) Seg Neutrophils % 73.2 H Seg Neuts % (Manual) Lymphocytes % (Manual) Seg Neutrophils # Seg Neutrophils # Man Lymphocytes # (Manual) Monocytes % (Manual) Eosinophils % (Manual) Monocytes # (Manual) Eosinophils # (Manual) D-Dimer Heparin Anti-Xa Level ABG pH POC ABG pCO2 POC ABG pO2 ABG pO2 ABG HCO3 ABG O2 Saturation ABG Base Excess ABG Hemoglobin ABG Oxyhemoglobin VBG pH ABG Sodium ABG Potassium ABG Glucose Oxyhemoglobin Sodium Potassium 3.4 L Chloride Carbon Dioxide BUN 55 H Creatinine 1.3 H Glucose 142 H POC Glucose 131 H Lactic Acid Calcium Ferritin AST Alkaline Phosphatase Magnesium Lactate Dehydrogenase Total Creatine Kinase CK-MB (CK-2) C-Reactive Protein Total Protein Albumin Troponin T HDL Cholesterol Arterial Blood Glucose Urine WBC (Auto) Urine Creatinine Urine Total Protein Phenytoin Coronavirus (PCR) Crossmatch 06/15/20 06/15/20 06/16/20 12:33 17:07 00:22 WBC RBC Hgb Hct MCHC RDW Lymph % (Auto) [place] % (Auto) Eos % (Auto) Lymph # [place] # Lymph # (Auto) [place] # (Auto) Eos # (Auto) Seg Neutrophils % Seg Neuts % (Manual) Lymphocytes % (Manual) Seg Neutrophils # Seg Neutrophils # Man Lymphocytes # (Manual) Monocytes % (Manual) Eosinophils % (Manual) Monocytes # (Manual) Eosinophils # (Manual) D-Dimer Heparin Anti-Xa Level 0.21 L ABG pH POC ABG pCO2 POC ABG pO2 ABG pO2 ABG HCO3 ABG O2 Saturation ABG Base Excess ABG Hemoglobin ABG Oxyhemoglobin VBG pH ABG Sodium ABG Potassium ABG Glucose Oxyhemoglobin Sodium Potassium Chloride Carbon Dioxide BUN Creatinine Glucose POC Glucose 180 H 185 H Lactic Acid Calcium Ferritin AST Alkaline Phosphatase Magnesium Lactate Dehydrogenase Total Creatine Kinase CK-MB (CK-2) C-Reactive Protein Total Protein Albumin Troponin T HDL Cholesterol Arterial Blood Glucose Urine WBC (Auto) Urine Creatinine Urine Total Protein Phenytoin Coronavirus (PCR) Crossmatch 06/16/20 06/16/20 06/16/20 01:45 08:06 09:15 WBC RBC Hgb Hct MCHC RDW Lymph % (Auto) [place] % (Auto) Eos % (Auto) Lymph # [place] # Lymph # (Auto) [place] # (Auto) Eos # (Auto) Seg Neutrophils % Seg Neuts % (Manual) Lymphocytes % (Manual) Seg Neutrophils # Seg Neutrophils # Man Lymphocytes # (Manual) Monocytes % (Manual) Eosinophils % (Manual) Monocytes # (Manual) Eosinophils # (Manual) D-Dimer Heparin Anti-Xa Level ABG pH POC ABG pCO2 POC ABG pO2 ABG pO2 ABG HCO3 ABG O2 Saturation ABG Base Excess ABG Hemoglobin ABG Oxyhemoglobin VBG pH ABG Sodium ABG Potassium ABG Glucose Oxyhemoglobin Sodium Potassium Chloride Carbon Dioxide BUN 49 H Creatinine Glucose 154 H POC Glucose 140 H 171 H Lactic Acid Calcium Ferritin AST Alkaline Phosphatase Magnesium Lactate Dehydrogenase Total Creatine Kinase CK-MB (CK-2) C-Reactive Protein Total Protein Albumin Troponin T HDL Cholesterol Arterial Blood Glucose Urine WBC (Auto) Urine Creatinine Urine Total Protein Phenytoin Coronavirus (PCR) Crossmatch 06/16/20 06/16/20 06/16/20 10:46 12:33 17:54 WBC RBC Hgb Hct MCHC RDW Lymph % (Auto) [place] % (Auto) Eos % (Auto) Lymph # [place] # Lymph # (Auto) [place] # (Auto) Eos # (Auto) Seg Neutrophils % Seg Neuts % (Manual) Lymphocytes % (Manual) Seg Neutrophils # Seg Neutrophils # Man Lymphocytes # (Manual) Monocytes % (Manual) Eosinophils % (Manual) Monocytes # (Manual) Eosinophils # (Manual) D-Dimer Heparin Anti-Xa Level 0.12 L ABG pH POC ABG pCO2 POC ABG pO2 ABG pO2 ABG HCO3 ABG O2 Saturation ABG Base Excess ABG Hemoglobin ABG Oxyhemoglobin VBG pH ABG Sodium ABG Potassium ABG Glucose Oxyhemoglobin Sodium Potassium Chloride Carbon Dioxide BUN Creatinine Glucose POC Glucose 166 H 151 H Lactic Acid Calcium Ferritin AST Alkaline Phosphatase Magnesium Lactate Dehydrogenase Total Creatine Kinase CK-MB (CK-2) C-Reactive Protein Total Protein Albumin Troponin T HDL Cholesterol Arterial Blood Glucose Urine WBC (Auto) Urine Creatinine Urine Total Protein Phenytoin Coronavirus (PCR) Crossmatch 06/16/20 06/17/20 06/17/20 18:47 00:00 02:19 WBC RBC Hgb Hct MCHC RDW Lymph % (Auto) [place] % (Auto) Eos % (Auto) Lymph # [place] # Lymph # (Auto) [place] # (Auto) Eos # (Auto) Seg Neutrophils % Seg Neuts % (Manual) Lymphocytes % (Manual) Seg Neutrophils # Seg Neutrophils # Man Lymphocytes # (Manual) Monocytes % (Manual) Eosinophils % (Manual) Monocytes # (Manual) Eosinophils # (Manual) D-Dimer Heparin Anti-Xa Level 0.73 H 0.77 H ABG pH POC ABG pCO2 POC ABG pO2 ABG pO2 ABG HCO3 ABG O2 Saturation ABG Base Excess ABG Hemoglobin ABG Oxyhemoglobin VBG pH ABG Sodium ABG Potassium ABG Glucose Oxyhemoglobin Sodium Potassium Chloride Carbon Dioxide BUN Creatinine Glucose POC Glucose 139 H Lactic Acid Calcium Ferritin AST Alkaline Phosphatase Magnesium Lactate Dehydrogenase Total Creatine Kinase CK-MB (CK-2) C-Reactive Protein Total Protein Albumin Troponin T HDL Cholesterol Arterial Blood Glucose Urine WBC (Auto) Urine Creatinine Urine Total Protein Phenytoin Coronavirus (PCR) Crossmatch 06/17/20 06/17/20 06/17/20 06:07 11:42 16:43 WBC RBC Hgb Hct MCHC RDW Lymph % (Auto) [place] % (Auto) Eos % (Auto) Lymph # [place] # Lymph # (Auto) [place] # (Auto) Eos # (Auto) Seg Neutrophils % Seg Neuts % (Manual) Lymphocytes % (Manual) Seg Neutrophils # Seg Neutrophils # Man Lymphocytes # (Manual) Monocytes % (Manual) Eosinophils % (Manual) Monocytes # (Manual) Eosinophils # (Manual) D-Dimer Heparin Anti-Xa Level 0.73 H ABG pH POC ABG pCO2 POC ABG pO2 ABG pO2 ABG HCO3 ABG O2 Saturation ABG Base Excess ABG Hemoglobin ABG Oxyhemoglobin VBG pH ABG Sodium ABG Potassium ABG Glucose Oxyhemoglobin Sodium Potassium Chloride Carbon Dioxide BUN Creatinine Glucose POC Glucose 169 H 169 H Lactic Acid Calcium Ferritin AST Alkaline Phosphatase Magnesium Lactate Dehydrogenase Total Creatine Kinase CK-MB (CK-2) C-Reactive Protein Total Protein Albumin Troponin T HDL Cholesterol Arterial Blood Glucose Urine WBC (Auto) Urine Creatinine Urine Total Protein Phenytoin Coronavirus (PCR) Crossmatch 06/17/20 06/17/20 06/17/20 18:18 23:08 23:16 WBC RBC Hgb Hct MCHC RDW Lymph % (Auto) [place] % (Auto) Eos % (Auto) Lymph # [place] # Lymph # (Auto) [place] # (Auto) Eos # (Auto) Seg Neutrophils % Seg Neuts % (Manual) Lymphocytes % (Manual) Seg Neutrophils # Seg Neutrophils # Man Lymphocytes # (Manual) Monocytes % (Manual) Eosinophils % (Manual) Monocytes # (Manual) Eosinophils # (Manual) D-Dimer Heparin Anti-Xa Level 0.71 H ABG pH POC ABG pCO2 POC ABG pO2 ABG pO2 ABG HCO3 ABG O2 Saturation ABG Base Excess ABG Hemoglobin ABG Oxyhemoglobin VBG pH ABG Sodium ABG Potassium ABG Glucose Oxyhemoglobin Sodium Potassium Chloride Carbon Dioxide BUN Creatinine Glucose POC Glucose 159 H 134 H Lactic Acid Calcium Ferritin AST Alkaline Phosphatase Magnesium Lactate Dehydrogenase Total Creatine Kinase CK-MB (CK-2) C-Reactive Protein Total Protein Albumin Troponin T HDL Cholesterol Arterial Blood Glucose Urine WBC (Auto) Urine Creatinine Urine Total Protein Phenytoin Coronavirus (PCR) Crossmatch 06/18/20 06/18/20 06/18/20 04:42 05:52 11:50 WBC RBC Hgb Hct MCHC RDW Lymph % (Auto) [place] % (Auto) Eos % (Auto) Lymph # [place] # Lymph # (Auto) [place] # (Auto) Eos # (Auto) Seg Neutrophils % Seg Neuts % (Manual) Lymphocytes % (Manual) Seg Neutrophils # Seg Neutrophils # Man Lymphocytes # (Manual) Monocytes % (Manual) Eosinophils % (Manual) Monocytes # (Manual) Eosinophils # (Manual) D-Dimer Heparin Anti-Xa Level ABG pH POC ABG pCO2 POC ABG pO2 ABG pO2 ABG HCO3 ABG O2 Saturation ABG Base Excess ABG Hemoglobin ABG Oxyhemoglobin VBG pH ABG Sodium ABG Potassium ABG Glucose Oxyhemoglobin Sodium Potassium Chloride Carbon Dioxide BUN 44 H Creatinine Glucose 115 H POC Glucose 171 H 167 H Lactic Acid Calcium Ferritin AST Alkaline Phosphatase Magnesium Lactate Dehydrogenase Total Creatine Kinase CK-MB (CK-2) C-Reactive Protein Total Protein Albumin Troponin T HDL Cholesterol Arterial Blood Glucose Urine WBC (Auto) Urine Creatinine Urine Total Protein Phenytoin Coronavirus (PCR) Crossmatch 06/18/20 06/19/20 06/19/20 23:46 05:48 07:52 WBC RBC Hgb Hct MCHC RDW Lymph % (Auto) [place] % (Auto) Eos % (Auto) Lymph # [place] # Lymph # (Auto) [place] # (Auto) Eos # (Auto) Seg Neutrophils % Seg Neuts % (Manual) Lymphocytes % (Manual) Seg Neutrophils # Seg Neutrophils # Man Lymphocytes # (Manual) Monocytes % (Manual) Eosinophils % (Manual) Monocytes # (Manual) Eosinophils # (Manual) D-Dimer Heparin Anti-Xa Level ABG pH POC ABG pCO2 POC ABG pO2 ABG pO2 ABG HCO3 ABG O2 Saturation ABG Base Excess ABG Hemoglobin ABG Oxyhemoglobin VBG pH ABG Sodium ABG Potassium ABG Glucose Oxyhemoglobin Sodium Potassium Chloride Carbon Dioxide BUN Creatinine Glucose POC Glucose 130 H 207 H 175 H Lactic Acid Calcium Ferritin AST Alkaline Phosphatase Magnesium Lactate Dehydrogenase Total Creatine Kinase CK-MB (CK-2) C-Reactive Protein Total Protein Albumin Troponin T HDL Cholesterol Arterial Blood Glucose Urine WBC (Auto) Urine Creatinine Urine Total Protein Phenytoin Coronavirus (PCR) Crossmatch 06/19/20 06/19/20 06/20/20 11:42 22:54 05:17 WBC RBC Hgb Hct MCHC RDW Lymph % (Auto) [place] % (Auto) Eos % (Auto) Lymph # [place] # Lymph # (Auto) [place] # (Auto) Eos # (Auto) Seg Neutrophils % Seg Neuts % (Manual) Lymphocytes % (Manual) Seg Neutrophils # Seg Neutrophils # Man Lymphocytes # (Manual) Monocytes % (Manual) Eosinophils % (Manual) Monocytes # (Manual) Eosinophils # (Manual) D-Dimer Heparin Anti-Xa Level ABG pH POC ABG pCO2 POC ABG pO2 ABG pO2 ABG HCO3 ABG O2 Saturation ABG Base Excess ABG Hemoglobin ABG Oxyhemoglobin VBG pH ABG Sodium ABG Potassium ABG Glucose Oxyhemoglobin Sodium Potassium Chloride Carbon Dioxide BUN Creatinine Glucose POC Glucose 166 H 135 H 218 H Lactic Acid Calcium Ferritin AST Alkaline Phosphatase Magnesium Lactate Dehydrogenase Total Creatine Kinase CK-MB (CK-2) C-Reactive Protein Total Protein Albumin Troponin T HDL Cholesterol Arterial Blood Glucose Urine WBC (Auto) Urine Creatinine Urine Total Protein Phenytoin Coronavirus (PCR) Crossmatch 06/20/20 06/20/20 06/20/20 12:04 16:25 16:35 WBC RBC Hgb Hct MCHC RDW Lymph % (Auto) [place] % (Auto) Eos % (Auto) Lymph # [place] # Lymph # (Auto) [place] # (Auto) Eos # (Auto) Seg Neutrophils % Seg Neuts % (Manual) Lymphocytes % (Manual) Seg Neutrophils # Seg Neutrophils # Man Lymphocytes # (Manual) Monocytes % (Manual) Eosinophils % (Manual) Monocytes # (Manual) Eosinophils # (Manual) D-Dimer Heparin Anti-Xa Level ABG pH POC ABG pCO2 POC ABG pO2 ABG pO2 59.6 L ABG HCO3 28.7 H ABG O2 Saturation 93.5 L ABG Base Excess 3.4 H ABG Hemoglobin 7.2 L ABG Oxyhemoglobin VBG pH ABG Sodium ABG Potassium ABG Glucose Oxyhemoglobin 91.3 L Sodium Potassium Chloride Carbon Dioxide BUN Creatinine Glucose POC Glucose 194 H 137 H Lactic Acid Calcium Ferritin AST Alkaline Phosphatase Magnesium Lactate Dehydrogenase Total Creatine Kinase CK-MB (CK-2) C-Reactive Protein Total Protein Albumin Troponin T HDL Cholesterol Arterial Blood Glucose Urine WBC (Auto) Urine Creatinine Urine Total Protein Phenytoin Coronavirus (PCR) Crossmatch 06/20/20 06/21/20 06/21/20 23:59 06:25 12:01 WBC RBC Hgb Hct MCHC RDW Lymph % (Auto) [place] % (Auto) Eos % (Auto) Lymph # [place] # Lymph # (Auto) [place] # (Auto) Eos # (Auto) Seg Neutrophils % Seg Neuts % (Manual) Lymphocytes % (Manual) Seg Neutrophils # Seg Neutrophils # Man Lymphocytes # (Manual) Monocytes % (Manual) Eosinophils % (Manual) Monocytes # (Manual) Eosinophils # (Manual) D-Dimer Heparin Anti-Xa Level ABG pH POC ABG pCO2 POC ABG pO2 ABG pO2 ABG HCO3 ABG O2 Saturation ABG Base Excess ABG Hemoglobin ABG Oxyhemoglobin VBG pH ABG Sodium ABG Potassium ABG Glucose Oxyhemoglobin Sodium Potassium Chloride Carbon Dioxide BUN Creatinine Glucose POC Glucose 156 H 177 H 195 H Lactic Acid Calcium Ferritin AST Alkaline Phosphatase Magnesium Lactate Dehydrogenase Total Creatine Kinase CK-MB (CK-2) C-Reactive Protein Total Protein Albumin Troponin T HDL Cholesterol Arterial Blood Glucose Urine WBC (Auto) Urine Creatinine Urine Total Protein Phenytoin Coronavirus (PCR) Crossmatch 06/21/20 06/21/20 06/22/20 17:04 21:51 05:06 WBC RBC Hgb Hct MCHC RDW Lymph % (Auto) [place] % (Auto) Eos % (Auto) Lymph # [place] # Lymph # (Auto) [place] # (Auto) Eos # (Auto) Seg Neutrophils % Seg Neuts % (Manual) Lymphocytes % (Manual) Seg Neutrophils # Seg Neutrophils # Man Lymphocytes # (Manual) Monocytes % (Manual) Eosinophils % (Manual) Monocytes # (Manual) Eosinophils # (Manual) D-Dimer Heparin Anti-Xa Level ABG pH POC ABG pCO2 POC ABG pO2 ABG pO2 ABG HCO3 ABG O2 Saturation ABG Base Excess ABG Hemoglobin ABG Oxyhemoglobin VBG pH ABG Sodium ABG Potassium ABG Glucose Oxyhemoglobin Sodium Potassium Chloride Carbon Dioxide BUN Creatinine Glucose POC Glucose 156 H 154 H 167 H Lactic Acid Calcium Ferritin AST Alkaline Phosphatase Magnesium Lactate Dehydrogenase Total Creatine Kinase CK-MB (CK-2) C-Reactive Protein Total Protein Albumin Troponin T HDL Cholesterol Arterial Blood Glucose Urine WBC (Auto) Urine Creatinine Urine Total Protein Phenytoin Coronavirus (PCR) Crossmatch 06/22/20 06/22/20 06/22/20 11:20 15:27 16:58 WBC RBC Hgb Hct MCHC RDW Lymph % (Auto) [place] % (Auto) Eos % (Auto) Lymph # [place] # Lymph # (Auto) [place] # (Auto) Eos # (Auto) Seg Neutrophils % Seg Neuts % (Manual) Lymphocytes % (Manual) Seg Neutrophils # Seg Neutrophils # Man Lymphocytes # (Manual) Monocytes % (Manual) Eosinophils % (Manual) Monocytes # (Manual) Eosinophils # (Manual) D-Dimer Heparin Anti-Xa Level ABG pH 7.206 L POC ABG pCO2 79.9 H POC ABG pO2 ABG pO2 ABG HCO3 ABG O2 Saturation ABG Base Excess ABG Hemoglobin 8.3 L ABG Oxyhemoglobin VBG pH ABG Sodium ABG Potassium ABG Glucose Oxyhemoglobin Sodium Potassium Chloride Carbon Dioxide BUN Creatinine Glucose POC Glucose 181 H 230 H Lactic Acid Calcium Ferritin AST Alkaline Phosphatase Magnesium Lactate Dehydrogenase Total Creatine Kinase CK-MB (CK-2) C-Reactive Protein Total Protein Albumin Troponin T HDL Cholesterol Arterial Blood Glucose Urine WBC (Auto) Urine Creatinine Urine Total Protein Phenytoin Coronavirus (PCR) Crossmatch 06/22/20 06/23/20 06/23/20 22:26 05:49 05:49 WBC RBC 2.58 L Hgb 7.4 L Hct 23.2 L MCHC RDW 17.0 H Lymph % (Auto) [place] % (Auto) 11.2 H Eos % (Auto) Lymph # 1.0 L [place] # Lymph # (Auto) [place] # (Auto) Eos # (Auto) Seg Neutrophils % Seg Neuts % (Manual) Lymphocytes % (Manual) Seg Neutrophils # Seg Neutrophils # Man Lymphocytes # (Manual) Monocytes % (Manual) Eosinophils % (Manual) Monocytes # (Manual) Eosinophils # (Manual) D-Dimer Heparin Anti-Xa Level ABG pH POC ABG pCO2 POC ABG pO2 ABG pO2 ABG HCO3 ABG O2 Saturation ABG Base Excess ABG Hemoglobin ABG Oxyhemoglobin VBG pH ABG Sodium ABG Potassium ABG Glucose Oxyhemoglobin Sodium Potassium Chloride Carbon Dioxide BUN 68 H Creatinine 2.4 H Glucose 198 H POC Glucose 195 H Lactic Acid Calcium Ferritin AST Alkaline Phosphatase Magnesium Lactate Dehydrogenase Total Creatine Kinase CK-MB (CK-2) C-Reactive Protein Total Protein Albumin Troponin T HDL Cholesterol Arterial Blood Glucose Urine WBC (Auto) Urine Creatinine Urine Total Protein Phenytoin Coronavirus (PCR) Crossmatch 06/23/20 06/23/20 06/23/20 05:50 12:29 12:34 WBC RBC Hgb Hct MCHC RDW Lymph % (Auto) [place] % (Auto) Eos % (Auto) Lymph # [place] # Lymph # (Auto) [place] # (Auto) Eos # (Auto) Seg Neutrophils % Seg Neuts % (Manual) Lymphocytes % (Manual) Seg Neutrophils # Seg Neutrophils # Man Lymphocytes # (Manual) Monocytes % (Manual) Eosinophils % (Manual) Monocytes # (Manual) Eosinophils # (Manual) D-Dimer Heparin Anti-Xa Level ABG pH POC ABG pCO2 54.7 H POC ABG pO2 68.8 L ABG pO2 ABG HCO3 ABG O2 Saturation ABG Base Excess ABG Hemoglobin 9.8 L ABG Oxyhemoglobin 92.6 L VBG pH ABG Sodium ABG Potassium ABG Glucose Oxyhemoglobin Sodium Potassium Chloride Carbon Dioxide BUN Creatinine Glucose POC Glucose 202 H 218 H Lactic Acid Calcium Ferritin AST Alkaline Phosphatase Magnesium Lactate Dehydrogenase Total Creatine Kinase CK-MB (CK-2) C-Reactive Protein Total Protein Albumin Troponin T HDL Cholesterol Arterial Blood Glucose Urine WBC (Auto) Urine Creatinine Urine Total Protein Phenytoin Coronavirus (PCR) Crossmatch 06/23/20 06/23/20 06/24/20 16:02 22:22 01:06 WBC RBC Hgb Hct MCHC RDW Lymph % (Auto) [place] % (Auto) Eos % (Auto) Lymph # [place] # Lymph # (Auto) [place] # (Auto) Eos # (Auto) Seg Neutrophils % Seg Neuts % (Manual) Lymphocytes % (Manual) Seg Neutrophils # Seg Neutrophils # Man Lymphocytes # (Manual) Monocytes % (Manual) Eosinophils % (Manual) Monocytes # (Manual) Eosinophils # (Manual) D-Dimer Heparin Anti-Xa Level ABG pH POC ABG pCO2 POC ABG pO2 ABG pO2 ABG HCO3 ABG O2 Saturation ABG Base Excess ABG Hemoglobin ABG Oxyhemoglobin VBG pH ABG Sodium ABG Potassium ABG Glucose Oxyhemoglobin Sodium Potassium Chloride Carbon Dioxide BUN Creatinine Glucose POC Glucose 190 H 166 H 171 H Lactic Acid Calcium Ferritin AST Alkaline Phosphatase Magnesium Lactate Dehydrogenase Total Creatine Kinase CK-MB (CK-2) C-Reactive Protein Total Protein Albumin Troponin T HDL Cholesterol Arterial Blood Glucose Urine WBC (Auto) Urine Creatinine Urine Total Protein Phenytoin Coronavirus (PCR) Crossmatch 06/24/20 06/24/20 06/24/20 04:48 05:35 11:48 WBC RBC Hgb Hct MCHC RDW Lymph % (Auto) [place] % (Auto) Eos % (Auto) Lymph # [place] # Lymph # (Auto) [place] # (Auto) Eos # (Auto) Seg Neutrophils % Seg Neuts % (Manual) Lymphocytes % (Manual) Seg Neutrophils # Seg Neutrophils # Man Lymphocytes # (Manual) Monocytes % (Manual) Eosinophils % (Manual) Monocytes # (Manual) Eosinophils # (Manual) D-Dimer Heparin Anti-Xa Level ABG pH POC ABG pCO2 POC ABG pO2 ABG pO2 ABG HCO3 ABG O2 Saturation ABG Base Excess ABG Hemoglobin ABG Oxyhemoglobin VBG pH ABG Sodium ABG Potassium ABG Glucose Oxyhemoglobin Sodium Potassium Chloride Carbon Dioxide BUN 75 H Creatinine 2.6 H Glucose 179 H POC Glucose 172 H 153 H Lactic Acid Calcium Ferritin AST Alkaline Phosphatase Magnesium Lactate Dehydrogenase Total Creatine Kinase CK-MB (CK-2) C-Reactive Protein Total Protein Albumin Troponin T HDL Cholesterol Arterial Blood Glucose Urine WBC (Auto) Urine Creatinine Urine Total Protein Phenytoin Coronavirus (PCR) Crossmatch 06/24/20 06/24/20 06/25/20 16:38 21:52 12:00 WBC RBC Hgb Hct MCHC RDW Lymph % (Auto) [place] % (Auto) Eos % (Auto) Lymph # [place] # Lymph # (Auto) [place] # (Auto) Eos # (Auto) Seg Neutrophils % Seg Neuts % (Manual) Lymphocytes % (Manual) Seg Neutrophils # Seg Neutrophils # Man Lymphocytes # (Manual) Monocytes % (Manual) Eosinophils % (Manual) Monocytes # (Manual) Eosinophils # (Manual) D-Dimer Heparin Anti-Xa Level ABG pH POC ABG pCO2 POC ABG pO2 ABG pO2 ABG HCO3 ABG O2 Saturation ABG Base Excess ABG Hemoglobin ABG Oxyhemoglobin VBG pH ABG Sodium ABG Potassium ABG Glucose Oxyhemoglobin Sodium Potassium Chloride Carbon Dioxide BUN Creatinine Glucose POC Glucose 123 H 115 H 203 H Lactic Acid Calcium Ferritin AST Alkaline Phosphatase Magnesium Lactate Dehydrogenase Total Creatine Kinase CK-MB (CK-2) C-Reactive Protein Total Protein Albumin Troponin T HDL Cholesterol Arterial Blood Glucose Urine WBC (Auto) Urine Creatinine Urine Total Protein Phenytoin Coronavirus (PCR) Crossmatch 06/25/20 06/25/20 06/25/20 15:43 16:37 23:02 WBC RBC Hgb Hct MCHC RDW Lymph % (Auto) [place] % (Auto) Eos % (Auto) Lymph # [place] # Lymph # (Auto) [place] # (Auto) Eos # (Auto) Seg Neutrophils % Seg Neuts % (Manual) Lymphocytes % (Manual) Seg Neutrophils # Seg Neutrophils # Man Lymphocytes # (Manual) Monocytes % (Manual) Eosinophils % (Manual) Monocytes # (Manual) Eosinophils # (Manual) D-Dimer Heparin Anti-Xa Level ABG pH POC ABG pCO2 POC ABG pO2 ABG pO2 ABG HCO3 ABG O2 Saturation ABG Base Excess ABG Hemoglobin ABG Oxyhemoglobin VBG pH ABG Sodium ABG Potassium ABG Glucose Oxyhemoglobin Sodium Potassium Chloride Carbon Dioxide BUN 71 H Creatinine 1.8 H Glucose 170 H POC Glucose 191 H 126 H Lactic Acid Calcium 8.2 L Ferritin AST Alkaline Phosphatase Magnesium Lactate Dehydrogenase Total Creatine Kinase CK-MB (CK-2) C-Reactive Protein Total Protein Albumin Troponin T HDL Cholesterol Arterial Blood Glucose Urine WBC (Auto) Urine Creatinine Urine Total Protein Phenytoin Coronavirus (PCR) Crossmatch 06/26/20 06/26/20 06/26/20 06:34 06:34 09:27 WBC RBC 2.41 L Hgb 6.9 L Hct 21.5 L MCHC RDW 16.7 H Lymph % (Auto) 10.9 L [place] % (Auto) 9.6 H Eos % (Auto) Lymph # 0.7 L [place] # Lymph # (Auto) [place] # (Auto) Eos # (Auto) Seg Neutrophils % 75.4 H Seg Neuts % (Manual) Lymphocytes % (Manual) Seg Neutrophils # Seg Neutrophils # Man Lymphocytes # (Manual) Monocytes % (Manual) Eosinophils % (Manual) Monocytes # (Manual) Eosinophils # (Manual) D-Dimer Heparin Anti-Xa Level ABG pH POC ABG pCO2 POC ABG pO2 ABG pO2 ABG HCO3 ABG O2 Saturation ABG Base Excess ABG Hemoglobin ABG Oxyhemoglobin VBG pH ABG Sodium ABG Potassium ABG Glucose Oxyhemoglobin Sodium Potassium Chloride Carbon Dioxide BUN 77 H Creatinine 1.9 H Glucose 190 H POC Glucose Lactic Acid Calcium Ferritin AST Alkaline Phosphatase Magnesium Lactate Dehydrogenase Total Creatine Kinase CK-MB (CK-2) C-Reactive Protein Total Protein Albumin Troponin T HDL Cholesterol Arterial Blood Glucose Urine WBC (Auto) Urine Creatinine Urine Total Protein Phenytoin Coronavirus (PCR) Crossmatch See Detail 06/26/20 06/26/20 06/26/20 12:15 16:28 17:28 WBC RBC Hgb Hct MCHC RDW Lymph % (Auto) [place] % (Auto) Eos % (Auto) Lymph # [place] # Lymph # (Auto) [place] # (Auto) Eos # (Auto) Seg Neutrophils % Seg Neuts % (Manual) Lymphocytes % (Manual) Seg Neutrophils # Seg Neutrophils # Man Lymphocytes # (Manual) Monocytes % (Manual) Eosinophils % (Manual) Monocytes # (Manual) Eosinophils # (Manual) D-Dimer Heparin Anti-Xa Level ABG pH POC ABG pCO2 POC ABG pO2 ABG pO2 ABG HCO3 ABG O2 Saturation ABG Base Excess ABG Hemoglobin ABG Oxyhemoglobin VBG pH ABG Sodium ABG Potassium ABG Glucose Oxyhemoglobin Sodium Potassium Chloride Carbon Dioxide BUN Creatinine Glucose POC Glucose 187 H 149 H 189 H Lactic Acid Calcium Ferritin AST Alkaline Phosphatase Magnesium Lactate Dehydrogenase Total Creatine Kinase CK-MB (CK-2) C-Reactive Protein Total Protein Albumin Troponin T HDL Cholesterol Arterial Blood Glucose Urine WBC (Auto) Urine Creatinine Urine Total Protein Phenytoin Coronavirus (PCR) Crossmatch 06/26/20 06/26/20 06/26/20 18:30 18:30 18:30 WBC RBC 2.87 L Hgb 8.2 L Hct 25.9 L MCHC RDW 17.8 H Lymph % (Auto) [place] % (Auto) Eos % (Auto) Lymph # [place] # Lymph # (Auto) [place] # (Auto) Eos # (Auto) Seg Neutrophils % Seg Neuts % (Manual) 83.0 H Lymphocytes % (Manual) 8.0 L Seg Neutrophils # Seg Neutrophils # Man Lymphocytes # (Manual) 0.6 L Monocytes % (Manual) Eosinophils % (Manual) Monocytes # (Manual) Eosinophils # (Manual) D-Dimer Heparin Anti-Xa Level ABG pH POC ABG pCO2 POC ABG pO2 ABG pO2 ABG HCO3 ABG O2 Saturation ABG Base Excess ABG Hemoglobin ABG Oxyhemoglobin VBG pH ABG Sodium ABG Potassium ABG Glucose Oxyhemoglobin Sodium Potassium Chloride Carbon Dioxide BUN 80 H Creatinine 2.1 H Glucose 260 H POC Glucose Lactic Acid 4.30 H* Calcium 8.3 L Ferritin AST Alkaline Phosphatase Magnesium Lactate Dehydrogenase Total Creatine Kinase CK-MB (CK-2) C-Reactive Protein Total Protein Albumin Troponin T HDL Cholesterol Arterial Blood Glucose Urine WBC (Auto) Urine Creatinine Urine Total Protein Phenytoin Coronavirus (PCR) Crossmatch 06/26/20 06/27/20 06/27/20 18:50 01:00 04:29 WBC RBC Hgb Hct MCHC RDW Lymph % (Auto) [place] % (Auto) Eos % (Auto) Lymph # [place] # Lymph # (Auto) [place] # (Auto) Eos # (Auto) Seg Neutrophils % Seg Neuts % (Manual) Lymphocytes % (Manual) Seg Neutrophils # Seg Neutrophils # Man Lymphocytes # (Manual) Monocytes % (Manual) Eosinophils % (Manual) Monocytes # (Manual) Eosinophils # (Manual) D-Dimer Heparin Anti-Xa Level ABG pH 7.296 L POC ABG pCO2 POC ABG pO2 ABG pO2 116.5 H 200.5 H ABG HCO3 28.4 H ABG O2 Saturation 99.3 H ABG Base Excess 3.7 H ABG Hemoglobin 5.6 L ABG Oxyhemoglobin VBG pH ABG Sodium ABG Potassium ABG Glucose Oxyhemoglobin Sodium Potassium Chloride Carbon Dioxide BUN Creatinine Glucose POC Glucose 123 H Lactic Acid Calcium Ferritin AST Alkaline Phosphatase Magnesium Lactate Dehydrogenase Total Creatine Kinase CK-MB (CK-2) C-Reactive Protein Total Protein Albumin Troponin T HDL Cholesterol Arterial Blood Glucose Urine WBC (Auto) Urine Creatinine Urine Total Protein Phenytoin Coronavirus (PCR) Crossmatch 06/27/20 06/27/20 06/27/20 05:00 05:00 05:00 WBC RBC 2.75 L Hgb 7.9 L Hct 24.3 L MCHC RDW 17.1 H Lymph % (Auto) 8.5 L [place] % (Auto) 12.6 H Eos % (Auto) Lymph # 0.7 L [place] # 1.0 H Lymph # (Auto) [place] # (Auto) Eos # (Auto) Seg Neutrophils % 77.5 H Seg Neuts % (Manual) Lymphocytes % (Manual) Seg Neutrophils # Seg Neutrophils # Man Lymphocytes # (Manual) Monocytes % (Manual) Eosinophils % (Manual) Monocytes # (Manual) Eosinophils # (Manual) D-Dimer Heparin Anti-Xa Level ABG pH POC ABG pCO2 POC ABG pO2 ABG pO2 ABG HCO3 ABG O2 Saturation ABG Base Excess ABG Hemoglobin ABG Oxyhemoglobin VBG pH ABG Sodium ABG Potassium ABG Glucose Oxyhemoglobin Sodium Potassium Chloride Carbon Dioxide BUN 80 H Creatinine 2.0 H Glucose 129 H POC Glucose Lactic Acid 0.60 L Calcium 7.9 L Ferritin AST Alkaline Phosphatase Magnesium Lactate Dehydrogenase Total Creatine Kinase CK-MB (CK-2) C-Reactive Protein Total Protein Albumin Troponin T HDL Cholesterol Arterial Blood Glucose Urine WBC (Auto) Urine Creatinine Urine Total Protein Phenytoin Coronavirus (PCR) Crossmatch 06/27/20 06/27/20 06/27/20 05:23 13:46 17:25 WBC RBC Hgb Hct MCHC RDW Lymph % (Auto) [place] % (Auto) Eos % (Auto) Lymph # [place] # Lymph # (Auto) [place] # (Auto) Eos # (Auto) Seg Neutrophils % Seg Neuts % (Manual) Lymphocytes % (Manual) Seg Neutrophils # Seg Neutrophils # Man Lymphocytes # (Manual) Monocytes % (Manual) Eosinophils % (Manual) Monocytes # (Manual) Eosinophils # (Manual) D-Dimer Heparin Anti-Xa Level ABG pH POC ABG pCO2 POC ABG pO2 ABG pO2 ABG HCO3 ABG O2 Saturation ABG Base Excess ABG Hemoglobin ABG Oxyhemoglobin VBG pH ABG Sodium ABG Potassium ABG Glucose Oxyhemoglobin Sodium Potassium Chloride Carbon Dioxide BUN Creatinine Glucose POC Glucose 109 H 158 H 162 H Lactic Acid Calcium Ferritin AST Alkaline Phosphatase Magnesium Lactate Dehydrogenase Total Creatine Kinase CK-MB (CK-2) C-Reactive Protein Total Protein Albumin Troponin T HDL Cholesterol Arterial Blood Glucose Urine WBC (Auto) Urine Creatinine Urine Total Protein Phenytoin Coronavirus (PCR) Crossmatch 06/27/20 06/27/20 06/28/20 18:43 23:46 04:05 WBC RBC Hgb 7.7 L Hct 22.1 L MCHC RDW Lymph % (Auto) [place] % (Auto) Eos % (Auto) Lymph # [place] # Lymph # (Auto) [place] # (Auto) Eos # (Auto) Seg Neutrophils % Seg Neuts % (Manual) Lymphocytes % (Manual) Seg Neutrophils # Seg Neutrophils # Man Lymphocytes # (Manual) Monocytes % (Manual) Eosinophils % (Manual) Monocytes # (Manual) Eosinophils # (Manual) D-Dimer Heparin Anti-Xa Level ABG pH POC ABG pCO2 POC ABG pO2 ABG pO2 102.7 H ABG HCO3 28.7 H ABG O2 Saturation ABG Base Excess 3.7 H ABG Hemoglobin ABG Oxyhemoglobin VBG pH ABG Sodium ABG Potassium ABG Glucose Oxyhemoglobin Sodium Potassium Chloride Carbon Dioxide BUN Creatinine Glucose POC Glucose 142 H Lactic Acid Calcium Ferritin AST Alkaline Phosphatase Magnesium Lactate Dehydrogenase Total Creatine Kinase CK-MB (CK-2) C-Reactive Protein Total Protein Albumin Troponin T HDL Cholesterol Arterial Blood Glucose Urine WBC (Auto) Urine Creatinine Urine Total Protein Phenytoin Coronavirus (PCR) Crossmatch 06/28/20 06/28/20 06/28/20 09:47 09:47 12:02 WBC RBC 2.53 L Hgb 7.4 L Hct 22.2 L MCHC RDW 16.8 H Lymph % (Auto) [place] % (Auto) 13.5 H Eos % (Auto) Lymph # 1.1 L [place] # 1.0 H Lymph # (Auto) [place] # (Auto) Eos # (Auto) Seg Neutrophils % Seg Neuts % (Manual) Lymphocytes % (Manual) Seg Neutrophils # Seg Neutrophils # Man Lymphocytes # (Manual) Monocytes % (Manual) Eosinophils % (Manual) Monocytes # (Manual) Eosinophils # (Manual) D-Dimer Heparin Anti-Xa Level ABG pH POC ABG pCO2 POC ABG pO2 ABG pO2 ABG HCO3 ABG O2 Saturation ABG Base Excess ABG Hemoglobin ABG Oxyhemoglobin VBG pH ABG Sodium ABG Potassium ABG Glucose Oxyhemoglobin Sodium Potassium Chloride Carbon Dioxide BUN 80 H Creatinine 1.5 H Glucose 139 H POC Glucose 169 H Lactic Acid Calcium 7.9 L Ferritin AST Alkaline Phosphatase Magnesium Lactate Dehydrogenase Total Creatine Kinase CK-MB (CK-2) C-Reactive Protein Total Protein 5.0 L Albumin 2.1 L Troponin T HDL Cholesterol Arterial Blood Glucose Urine WBC (Auto) Urine Creatinine Urine Total Protein Phenytoin Coronavirus (PCR) Crossmatch 06/28/20 06/28/20 06/28/20 12:30 12:30 17:24 WBC RBC 2.38 L Hgb 7.3 L Hct 20.9 L MCHC 35 H RDW 16.7 H Lymph % (Auto) [place] % (Auto) Eos % (Auto) Lymph # [place] # Lymph # (Auto) [place] # (Auto) Eos # (Auto) Seg Neutrophils % Seg Neuts % (Manual) Lymphocytes % (Manual) Seg Neutrophils # Seg Neutrophils # Man Lymphocytes # (Manual) Monocytes % (Manual) Eosinophils % (Manual) Monocytes # (Manual) Eosinophils # (Manual) D-Dimer Heparin Anti-Xa Level ABG pH POC ABG pCO2 POC ABG pO2 ABG pO2 ABG HCO3 ABG O2 Saturation ABG Base Excess ABG Hemoglobin ABG Oxyhemoglobin VBG pH ABG Sodium ABG Potassium ABG Glucose Oxyhemoglobin Sodium Potassium Chloride Carbon Dioxide BUN 74 H Creatinine 1.5 H Glucose 143 H POC Glucose 173 H Lactic Acid Calcium 7.5 L Ferritin AST Alkaline Phosphatase Magnesium Lactate Dehydrogenase Total Creatine Kinase CK-MB (CK-2) C-Reactive Protein Total Protein Albumin Troponin T HDL Cholesterol Arterial Blood Glucose Urine WBC (Auto) Urine Creatinine Urine Total Protein Phenytoin Coronavirus (PCR) Crossmatch 06/29/20 06/29/20 06/29/20 00:02 03:54 04:38 WBC RBC 2.55 L Hgb 7.3 L Hct 22.4 L MCHC RDW 16.4 H Lymph % (Auto) 13.3 L [place] % (Auto) 12.5 H Eos % (Auto) Lymph # 1.1 L [place] # 1.0 H Lymph # (Auto) [place] # (Auto) Eos # (Auto) Seg Neutrophils % Seg Neuts % (Manual) Lymphocytes % (Manual) Seg Neutrophils # Seg Neutrophils # Man Lymphocytes # (Manual) Monocytes % (Manual) Eosinophils % (Manual) Monocytes # (Manual) Eosinophils # (Manual) D-Dimer Heparin Anti-Xa Level ABG pH POC ABG pCO2 POC ABG pO2 ABG pO2 ABG HCO3 26.9 H ABG O2 Saturation ABG Base Excess ABG Hemoglobin 6.9 L ABG Oxyhemoglobin VBG pH ABG Sodium ABG Potassium ABG Glucose Oxyhemoglobin Sodium Potassium Chloride Carbon Dioxide BUN Creatinine Glucose POC Glucose 142 H Lactic Acid Calcium Ferritin AST Alkaline Phosphatase Magnesium Lactate Dehydrogenase Total Creatine Kinase CK-MB (CK-2) C-Reactive Protein Total Protein Albumin Troponin T HDL Cholesterol Arterial Blood Glucose Urine WBC (Auto) Urine Creatinine Urine Total Protein Phenytoin Coronavirus (PCR) Crossmatch 06/29/20 06/29/20 06/29/20 04:38 05:38 12:25 WBC RBC Hgb Hct MCHC RDW Lymph % (Auto) [place] % (Auto) Eos % (Auto) Lymph # [place] # Lymph # (Auto) [place] # (Auto) Eos # (Auto) Seg Neutrophils % Seg Neuts % (Manual) Lymphocytes % (Manual) Seg Neutrophils # Seg Neutrophils # Man Lymphocytes # (Manual) Monocytes % (Manual) Eosinophils % (Manual) Monocytes # (Manual) Eosinophils # (Manual) D-Dimer Heparin Anti-Xa Level ABG pH POC ABG pCO2 POC ABG pO2 ABG pO2 ABG HCO3 ABG O2 Saturation ABG Base Excess ABG Hemoglobin ABG Oxyhemoglobin VBG pH ABG Sodium ABG Potassium ABG Glucose Oxyhemoglobin Sodium Potassium Chloride 107.8 H Carbon Dioxide BUN 72 H Creatinine 1.4 H Glucose 127 H POC Glucose 122 H 138 H Lactic Acid Calcium 7.4 L Ferritin AST Alkaline Phosphatase Magnesium Lactate Dehydrogenase Total Creatine Kinase CK-MB (CK-2) C-Reactive Protein Total Protein Albumin Troponin T HDL Cholesterol Arterial Blood Glucose Urine WBC (Auto) Urine Creatinine Urine Total Protein Phenytoin Coronavirus (PCR) Crossmatch 06/29/20 06/29/20 06/29/20 14:45 14:45 14:45 WBC RBC Hgb Hct MCHC RDW Lymph % (Auto) [place] % (Auto) Eos % (Auto) Lymph # [place] # Lymph # (Auto) [place] # (Auto) Eos # (Auto) Seg Neutrophils % Seg Neuts % (Manual) Lymphocytes % (Manual) Seg Neutrophils # Seg Neutrophils # Man Lymphocytes # (Manual) Monocytes % (Manual) Eosinophils % (Manual) Monocytes # (Manual) Eosinophils # (Manual) D-Dimer 2310.15 H Heparin Anti-Xa Level ABG pH POC ABG pCO2 POC ABG pO2 ABG pO2 ABG HCO3 ABG O2 Saturation ABG Base Excess ABG Hemoglobin ABG Oxyhemoglobin VBG pH ABG Sodium ABG Potassium ABG Glucose Oxyhemoglobin Sodium Potassium Chloride Carbon Dioxide BUN Creatinine Glucose POC Glucose Lactic Acid Calcium Ferritin 223.6 H AST Alkaline Phosphatase Magnesium Lactate Dehydrogenase 367 H Total Creatine Kinase CK-MB (CK-2) C-Reactive Protein 3.60 H Total Protein Albumin Troponin T HDL Cholesterol Arterial Blood Glucose Urine WBC (Auto) Urine Creatinine Urine Total Protein Phenytoin Coronavirus (PCR) Crossmatch 06/29/20 06/29/20 06/29/20 18:27 23:35 Unknown WBC RBC Hgb Hct MCHC RDW Lymph % (Auto) [place] % (Auto) Eos % (Auto) Lymph # [place] # Lymph # (Auto) [place] # (Auto) Eos # (Auto) Seg Neutrophils % Seg Neuts % (Manual) Lymphocytes % (Manual) Seg Neutrophils # Seg Neutrophils # Man Lymphocytes # (Manual) Monocytes % (Manual) Eosinophils % (Manual) Monocytes # (Manual) Eosinophils # (Manual) D-Dimer Heparin Anti-Xa Level ABG pH POC ABG pCO2 POC ABG pO2 ABG pO2 ABG HCO3 ABG O2 Saturation ABG Base Excess ABG Hemoglobin ABG Oxyhemoglobin VBG pH ABG Sodium ABG Potassium ABG Glucose Oxyhemoglobin Sodium Potassium Chloride Carbon Dioxide BUN Creatinine Glucose POC Glucose 112 H 140 H Lactic Acid Calcium Ferritin AST Alkaline Phosphatase Magnesium Lactate Dehydrogenase Total Creatine Kinase CK-MB (CK-2) C-Reactive Protein Total Protein Albumin Troponin T HDL Cholesterol Arterial Blood Glucose Urine WBC (Auto) Urine Creatinine Urine Total Protein Phenytoin Coronavirus (PCR) Positive A Crossmatch 06/30/20 06/30/20 06/30/20 04:10 04:10 06:09 WBC RBC 2.44 L Hgb 7.1 L Hct 21.5 L MCHC RDW 16.6 H Lymph % (Auto) 11.0 L [place] % (Auto) 10.8 H Eos % (Auto) Lymph # 0.9 L [place] # 0.9 H Lymph # (Auto) [place] # (Auto) Eos # (Auto) Seg Neutrophils % 73.7 H Seg Neuts % (Manual) Lymphocytes % (Manual) Seg Neutrophils # Seg Neutrophils # Man Lymphocytes # (Manual) Monocytes % (Manual) Eosinophils % (Manual) Monocytes # (Manual) Eosinophils # (Manual) D-Dimer Heparin Anti-Xa Level ABG pH POC ABG pCO2 POC ABG pO2 ABG pO2 ABG HCO3 ABG O2 Saturation ABG Base Excess ABG Hemoglobin ABG Oxyhemoglobin VBG pH ABG Sodium ABG Potassium ABG Glucose Oxyhemoglobin Sodium Potassium Chloride 109.1 H Carbon Dioxide BUN 74 H Creatinine 1.3 H Glucose 191 H POC Glucose 187 H Lactic Acid Calcium 7.8 L Ferritin AST Alkaline Phosphatase Magnesium Lactate Dehydrogenase Total Creatine Kinase CK-MB (CK-2) C-Reactive Protein Total Protein Albumin Troponin T HDL Cholesterol Arterial Blood Glucose Urine WBC (Auto) Urine Creatinine Urine Total Protein Phenytoin Coronavirus (PCR) Crossmatch 06/30/20 06/30/20 06/30/20 12:04 17:43 23:41 WBC RBC Hgb Hct MCHC RDW Lymph % (Auto) [place] % (Auto) Eos % (Auto) Lymph # [place] # Lymph # (Auto) [place] # (Auto) Eos # (Auto) Seg Neutrophils % Seg Neuts % (Manual) Lymphocytes % (Manual) Seg Neutrophils # Seg Neutrophils # Man Lymphocytes # (Manual) Monocytes % (Manual) Eosinophils % (Manual) Monocytes # (Manual) Eosinophils # (Manual) D-Dimer Heparin Anti-Xa Level ABG pH POC ABG pCO2 POC ABG pO2 ABG pO2 ABG HCO3 ABG O2 Saturation ABG Base Excess ABG Hemoglobin ABG Oxyhemoglobin VBG pH ABG Sodium ABG Potassium ABG Glucose Oxyhemoglobin Sodium Potassium Chloride Carbon Dioxide BUN Creatinine Glucose POC Glucose 112 H 177 H 143 H Lactic Acid Calcium Ferritin AST Alkaline Phosphatase Magnesium Lactate Dehydrogenase Total Creatine Kinase CK-MB (CK-2) C-Reactive Protein Total Protein Albumin Troponin T HDL Cholesterol Arterial Blood Glucose Urine WBC (Auto) Urine Creatinine Urine Total Protein Phenytoin Coronavirus (PCR) Crossmatch 07/01/20 07/01/20 07/01/20 05:02 05:52 06:01 WBC 12.6 H RBC 2.95 L Hgb 8.2 L Hct 26.0 L MCHC RDW 16.9 H Lymph % (Auto) [place] % (Auto) Eos % (Auto) Lymph # [place] # Lymph # (Auto) [place] # (Auto) Eos # (Auto) Seg Neutrophils % Seg Neuts % (Manual) Lymphocytes % (Manual) Seg Neutrophils # Seg Neutrophils # Man 8.6 H Lymphocytes # (Manual) Monocytes % (Manual) Eosinophils % (Manual) 5.0 H Monocytes # (Manual) Eosinophils # (Manual) 0.6 H D-Dimer Heparin Anti-Xa Level ABG pH POC ABG pCO2 POC ABG pO2 ABG pO2 ABG HCO3 ABG O2 Saturation ABG Base Excess ABG Hemoglobin 8.2 L ABG Oxyhemoglobin VBG pH ABG Sodium ABG Potassium ABG Glucose Oxyhemoglobin Sodium Potassium Chloride Carbon Dioxide BUN Creatinine Glucose POC Glucose 129 H Lactic Acid Calcium Ferritin AST Alkaline Phosphatase Magnesium Lactate Dehydrogenase Total Creatine Kinase CK-MB (CK-2) C-Reactive Protein Total Protein Albumin Troponin T HDL Cholesterol Arterial Blood Glucose Urine WBC (Auto) Urine Creatinine Urine Total Protein Phenytoin Coronavirus (PCR) Crossmatch 07/01/20 07/01/20 07/01/20 06:01 06:01 06:08 WBC RBC Hgb Hct MCHC RDW Lymph % (Auto) [place] % (Auto) Eos % (Auto) Lymph # [place] # Lymph # (Auto) [place] # (Auto) Eos # (Auto) Seg Neutrophils % Seg Neuts % (Manual) Lymphocytes % (Manual) Seg Neutrophils # Seg Neutrophils # Man Lymphocytes # (Manual) Monocytes % (Manual) Eosinophils % (Manual) Monocytes # (Manual) Eosinophils # (Manual) D-Dimer Heparin Anti-Xa Level ABG pH POC ABG pCO2 POC ABG pO2 ABG pO2 ABG HCO3 ABG O2 Saturation ABG Base Excess ABG Hemoglobin ABG Oxyhemoglobin VBG pH ABG Sodium ABG Potassium ABG Glucose Oxyhemoglobin Sodium 147 H Potassium Chloride 108.0 H Carbon Dioxide BUN 71 H Creatinine 1.3 H Glucose 193 H POC Glucose 192 H Lactic Acid Calcium 8.1 L Ferritin AST Alkaline Phosphatase Magnesium Lactate Dehydrogenase Total Creatine Kinase 300 H CK-MB (CK-2) C-Reactive Protein Total Protein Albumin Troponin T 0.067 H HDL Cholesterol 61 H Arterial Blood Glucose Urine WBC (Auto) Urine Creatinine Urine Total Protein Phenytoin Coronavirus (PCR) Crossmatch 07/01/20 07/01/20 07/02/20 12:23 17:40 00:18 WBC RBC Hgb Hct MCHC RDW Lymph % (Auto) [place] % (Auto) Eos % (Auto) Lymph # [place] # Lymph # (Auto) [place] # (Auto) Eos # (Auto) Seg Neutrophils % Seg Neuts % (Manual) Lymphocytes % (Manual) Seg Neutrophils # Seg Neutrophils # Man Lymphocytes # (Manual) Monocytes % (Manual) Eosinophils % (Manual) Monocytes # (Manual) Eosinophils # (Manual) D-Dimer Heparin Anti-Xa Level ABG pH POC ABG pCO2 POC ABG pO2 ABG pO2 ABG HCO3 ABG O2 Saturation ABG Base Excess ABG Hemoglobin ABG Oxyhemoglobin VBG pH ABG Sodium ABG Potassium ABG Glucose Oxyhemoglobin Sodium Potassium Chloride Carbon Dioxide BUN Creatinine Glucose POC Glucose 111 H 135 H 145 H Lactic Acid Calcium Ferritin AST Alkaline Phosphatase Magnesium Lactate Dehydrogenase Total Creatine Kinase CK-MB (CK-2) C-Reactive Protein Total Protein Albumin Troponin T HDL Cholesterol Arterial Blood Glucose Urine WBC (Auto) Urine Creatinine Urine Total Protein Phenytoin Coronavirus (PCR) Crossmatch 07/02/20 07/02/20 07/02/20 04:11 04:23 05:54 WBC RBC Hgb Hct MCHC RDW Lymph % (Auto) [place] % (Auto) Eos % (Auto) Lymph # [place] # Lymph # (Auto) [place] # (Auto) Eos # (Auto) Seg Neutrophils % Seg Neuts % (Manual) Lymphocytes % (Manual) Seg Neutrophils # Seg Neutrophils # Man Lymphocytes # (Manual) Monocytes % (Manual) Eosinophils % (Manual) Monocytes # (Manual) Eosinophils # (Manual) D-Dimer Heparin Anti-Xa Level ABG pH POC ABG pCO2 POC ABG pO2 ABG pO2 ABG HCO3 ABG O2 Saturation ABG Base Excess ABG Hemoglobin 5.4 L ABG Oxyhemoglobin VBG pH ABG Sodium ABG Potassium ABG Glucose Oxyhemoglobin Sodium Potassium Chloride 108.6 H Carbon Dioxide BUN 72 H Creatinine Glucose 112 H POC Glucose 137 H Lactic Acid Calcium 7.8 L Ferritin AST Alkaline Phosphatase Magnesium Lactate Dehydrogenase Total Creatine Kinase CK-MB (CK-2) C-Reactive Protein Total Protein Albumin Troponin T HDL Cholesterol Arterial Blood Glucose Urine WBC (Auto) Urine Creatinine Urine Total Protein Phenytoin Coronavirus (PCR) Crossmatch 07/02/20 07/02/20 07/02/20 11:38 18:04 23:59 WBC RBC Hgb Hct MCHC RDW Lymph % (Auto) [place] % (Auto) Eos % (Auto) Lymph # [place] # Lymph # (Auto) [place] # (Auto) Eos # (Auto) Seg Neutrophils % Seg Neuts % (Manual) Lymphocytes % (Manual) Seg Neutrophils # Seg Neutrophils # Man Lymphocytes # (Manual) Monocytes % (Manual) Eosinophils % (Manual) Monocytes # (Manual) Eosinophils # (Manual) D-Dimer Heparin Anti-Xa Level ABG pH POC ABG pCO2 POC ABG pO2 ABG pO2 ABG HCO3 ABG O2 Saturation ABG Base Excess ABG Hemoglobin ABG Oxyhemoglobin VBG pH ABG Sodium ABG Potassium ABG Glucose Oxyhemoglobin Sodium Potassium Chloride Carbon Dioxide BUN Creatinine Glucose POC Glucose 128 H 135 H 156 H Lactic Acid Calcium Ferritin AST Alkaline Phosphatase Magnesium Lactate Dehydrogenase Total Creatine Kinase CK-MB (CK-2) C-Reactive Protein Total Protein Albumin Troponin T HDL Cholesterol Arterial Blood Glucose Urine WBC (Auto) Urine Creatinine Urine Total Protein Phenytoin Coronavirus (PCR) Crossmatch 07/03/20 07/03/20 07/03/20 03:49 06:00 11:31 WBC RBC Hgb Hct MCHC RDW Lymph % (Auto) [place] % (Auto) Eos % (Auto) Lymph # [place] # Lymph # (Auto) [place] # (Auto) Eos # (Auto) Seg Neutrophils % Seg Neuts % (Manual) Lymphocytes % (Manual) Seg Neutrophils # Seg Neutrophils # Man Lymphocytes # (Manual) Monocytes % (Manual) Eosinophils % (Manual) Monocytes # (Manual) Eosinophils # (Manual) D-Dimer Heparin Anti-Xa Level ABG pH POC ABG pCO2 POC ABG pO2 ABG pO2 121.0 H ABG HCO3 ABG O2 Saturation ABG Base Excess ABG Hemoglobin 8.5 L ABG Oxyhemoglobin VBG pH ABG Sodium ABG Potassium ABG Glucose Oxyhemoglobin Sodium Potassium Chloride Carbon Dioxide BUN Creatinine Glucose POC Glucose 135 H 141 H Lactic Acid Calcium Ferritin AST Alkaline Phosphatase Magnesium Lactate Dehydrogenase Total Creatine Kinase CK-MB (CK-2) C-Reactive Protein Total Protein Albumin Troponin T HDL Cholesterol Arterial Blood Glucose Urine WBC (Auto) Urine Creatinine Urine Total Protein Phenytoin Coronavirus (PCR) Crossmatch 07/03/20 07/03/20 07/03/20 16:00 16:07 17:40 WBC RBC Hgb Hct MCHC RDW Lymph % (Auto) [place] % (Auto) Eos % (Auto) Lymph # [place] # Lymph # (Auto) [place] # (Auto) Eos # (Auto) Seg Neutrophils % Seg Neuts % (Manual) Lymphocytes % (Manual) Seg Neutrophils # Seg Neutrophils # Man Lymphocytes # (Manual) Monocytes % (Manual) Eosinophils % (Manual) Monocytes # (Manual) Eosinophils # (Manual) D-Dimer Heparin Anti-Xa Level ABG pH 7.271 L POC ABG pCO2 POC ABG pO2 ABG pO2 126.9 H ABG HCO3 ABG O2 Saturation ABG Base Excess ABG Hemoglobin 8.2 L 8.1 L ABG Oxyhemoglobin VBG pH ABG Sodium 130.3 L ABG Potassium 4.9 H ABG Glucose 163 H Oxyhemoglobin Sodium Potassium Chloride Carbon Dioxide BUN Creatinine Glucose POC Glucose 120 H Lactic Acid Calcium Ferritin AST Alkaline Phosphatase Magnesium Lactate Dehydrogenase Total Creatine Kinase CK-MB (CK-2) C-Reactive Protein Total Protein Albumin Troponin T HDL Cholesterol Arterial Blood Glucose 163 H Urine WBC (Auto) Urine Creatinine Urine Total Protein Phenytoin Coronavirus (PCR) Crossmatch 07/04/20 07/04/20 07/04/20 05:49 11:54 18:00 WBC RBC Hgb Hct MCHC RDW Lymph % (Auto) [place] % (Auto) Eos % (Auto) Lymph # [place] # Lymph # (Auto) [place] # (Auto) Eos # (Auto) Seg Neutrophils % Seg Neuts % (Manual) Lymphocytes % (Manual) Seg Neutrophils # Seg Neutrophils # Man Lymphocytes # (Manual) Monocytes % (Manual) Eosinophils % (Manual) Monocytes # (Manual) Eosinophils # (Manual) D-Dimer Heparin Anti-Xa Level ABG pH POC ABG pCO2 POC ABG pO2 ABG pO2 ABG HCO3 ABG O2 Saturation ABG Base Excess ABG Hemoglobin ABG Oxyhemoglobin VBG pH ABG Sodium ABG Potassium ABG Glucose Oxyhemoglobin Sodium Potassium Chloride Carbon Dioxide BUN Creatinine Glucose POC Glucose 128 H 168 H 133 H Lactic Acid Calcium Ferritin AST Alkaline Phosphatase Magnesium Lactate Dehydrogenase Total Creatine Kinase CK-MB (CK-2) C-Reactive Protein Total Protein Albumin Troponin T HDL Cholesterol Arterial Blood Glucose Urine WBC (Auto) Urine Creatinine Urine Total Protein Phenytoin Coronavirus (PCR) Crossmatch 07/05/20 07/05/20 07/05/20 00:07 01:12 02:30 WBC RBC 2.35 L Hgb 6.9 L Hct 21.1 L MCHC RDW 16.8 H Lymph % (Auto) [place] % (Auto) Eos % (Auto) Lymph # [place] # Lymph # (Auto) [place] # (Auto) Eos # (Auto) Seg Neutrophils % Seg Neuts % (Manual) 74.0 H Lymphocytes % (Manual) 12.0 L Seg Neutrophils # Seg Neutrophils # Man 8.0 H Lymphocytes # (Manual) Monocytes % (Manual) 9.0 H Eosinophils % (Manual) Monocytes # (Manual) 1.0 H Eosinophils # (Manual) D-Dimer Heparin Anti-Xa Level ABG pH POC ABG pCO2 POC ABG pO2 ABG pO2 ABG HCO3 ABG O2 Saturation ABG Base Excess ABG Hemoglobin ABG Oxyhemoglobin VBG pH ABG Sodium ABG Potassium ABG Glucose Oxyhemoglobin Sodium Potassium Chloride Carbon Dioxide BUN Creatinine Glucose POC Glucose 121 H Lactic Acid Calcium Ferritin AST Alkaline Phosphatase Magnesium Lactate Dehydrogenase Total Creatine Kinase CK-MB (CK-2) C-Reactive Protein Total Protein Albumin Troponin T HDL Cholesterol Arterial Blood Glucose Urine WBC (Auto) Urine Creatinine Urine Total Protein Phenytoin Coronavirus (PCR) Crossmatch See Detail 07/05/20 07/05/20 07/05/20 12:09 13:05 18:04 WBC RBC Hgb Hct MCHC RDW Lymph % (Auto) [place] % (Auto) Eos % (Auto) Lymph # [place] # Lymph # (Auto) [place] # (Auto) Eos # (Auto) Seg Neutrophils % Seg Neuts % (Manual) Lymphocytes % (Manual) Seg Neutrophils # Seg Neutrophils # Man Lymphocytes # (Manual) Monocytes % (Manual) Eosinophils % (Manual) Monocytes # (Manual) Eosinophils # (Manual) D-Dimer Heparin Anti-Xa Level ABG pH 7.32 L POC ABG pCO2 POC ABG pO2 ABG pO2 78.3 L ABG HCO3 ABG O2 Saturation ABG Base Excess -2.6 L ABG Hemoglobin 7.3 L ABG Oxyhemoglobin VBG pH ABG Sodium ABG Potassium ABG Glucose Oxyhemoglobin Sodium Potassium Chloride Carbon Dioxide BUN Creatinine Glucose POC Glucose 132 H 160 H Lactic Acid Calcium Ferritin AST Alkaline Phosphatase Magnesium Lactate Dehydrogenase Total Creatine Kinase CK-MB (CK-2) C-Reactive Protein Total Protein Albumin Troponin T HDL Cholesterol Arterial Blood Glucose Urine WBC (Auto) Urine Creatinine Urine Total Protein Phenytoin Coronavirus (PCR) Crossmatch 07/05/20 07/05/20 07/05/20 23:13 23:13 23:43 WBC RBC 2.57 L Hgb 7.7 L Hct 23.0 L MCHC RDW 16.9 H Lymph % (Auto) [place] % (Auto) Eos % (Auto) Lymph # [place] # Lymph # (Auto) [place] # (Auto) Eos # (Auto) Seg Neutrophils % Seg Neuts % (Manual) Lymphocytes % (Manual) Seg Neutrophils # Seg Neutrophils # Man Lymphocytes # (Manual) Monocytes % (Manual) Eosinophils % (Manual) Monocytes # (Manual) Eosinophils # (Manual) D-Dimer Heparin Anti-Xa Level ABG pH POC ABG pCO2 POC ABG pO2 ABG pO2 ABG HCO3 ABG O2 Saturation ABG Base Excess ABG Hemoglobin ABG Oxyhemoglobin VBG pH ABG Sodium ABG Potassium ABG Glucose Oxyhemoglobin Sodium Potassium Chloride Carbon Dioxide 20 L BUN 80 H Creatinine 2.4 H D Glucose 124 H POC Glucose 121 H Lactic Acid Calcium 7.6 L Ferritin AST Alkaline Phosphatase Magnesium Lactate Dehydrogenase Total Creatine Kinase CK-MB (CK-2) C-Reactive Protein Total Protein Albumin Troponin T HDL Cholesterol Arterial Blood Glucose Urine WBC (Auto) Urine Creatinine Urine Total Protein Phenytoin Coronavirus (PCR) Crossmatch 07/06/20 07/06/20 07/06/20 13:20 14:48 17:28 WBC RBC Hgb Hct MCHC RDW Lymph % (Auto) [place] % (Auto) Eos % (Auto) Lymph # [place] # Lymph # (Auto) [place] # (Auto) Eos # (Auto) Seg Neutrophils % Seg Neuts % (Manual) Lymphocytes % (Manual) Seg Neutrophils # Seg Neutrophils # Man Lymphocytes # (Manual) Monocytes % (Manual) Eosinophils % (Manual) Monocytes # (Manual) Eosinophils # (Manual) D-Dimer Heparin Anti-Xa Level ABG pH POC ABG pCO2 POC ABG pO2 ABG pO2 ABG HCO3 ABG O2 Saturation ABG Base Excess ABG Hemoglobin ABG Oxyhemoglobin VBG pH ABG Sodium ABG Potassium ABG Glucose Oxyhemoglobin Sodium 136 L Potassium 5.5 H Chloride Carbon Dioxide 19 L BUN 82 H Creatinine 2.5 H Glucose 113 H POC Glucose 133 H Lactic Acid Calcium 7.7 L Ferritin AST Alkaline Phosphatase Magnesium Lactate Dehydrogenase Total Creatine Kinase CK-MB (CK-2) C-Reactive Protein Total Protein Albumin Troponin T HDL Cholesterol Arterial Blood Glucose Urine WBC (Auto) Urine Creatinine 33.3 H Urine Total Protein Phenytoin Coronavirus (PCR) Crossmatch 07/07/20 07/07/20 07/07/20 00:12 04:15 04:15 WBC RBC 2.28 L Hgb 6.8 L Hct 20.7 L MCHC RDW 16.8 H Lymph % (Auto) [place] % (Auto) Eos % (Auto) Lymph # [place] # Lymph # (Auto) [place] # (Auto) Eos # (Auto) Seg Neutrophils % Seg Neuts % (Manual) Lymphocytes % (Manual) 13.0 L Seg Neutrophils # Seg Neutrophils # Man Lymphocytes # (Manual) 1.0 L Monocytes % (Manual) 11.0 H Eosinophils % (Manual) Monocytes # (Manual) 0.9 H Eosinophils # (Manual) D-Dimer Heparin Anti-Xa Level ABG pH POC ABG pCO2 POC ABG pO2 ABG pO2 ABG HCO3 ABG O2 Saturation ABG Base Excess ABG Hemoglobin ABG Oxyhemoglobin VBG pH ABG Sodium ABG Potassium ABG Glucose Oxyhemoglobin Sodium Potassium Chloride Carbon Dioxide BUN Creatinine Glucose POC Glucose 154 H Lactic Acid Calcium Ferritin AST Alkaline Phosphatase Magnesium 2.50 H Lactate Dehydrogenase Total Creatine Kinase CK-MB (CK-2) C-Reactive Protein Total Protein Albumin Troponin T HDL Cholesterol Arterial Blood Glucose Urine WBC (Auto) Urine Creatinine Urine Total Protein Phenytoin Coronavirus (PCR) Crossmatch 07/07/20 07/07/20 07/07/20 05:31 12:31 13:22 WBC RBC Hgb Hct MCHC RDW Lymph % (Auto) [place] % (Auto) Eos % (Auto) Lymph # [place] # Lymph # (Auto) [place] # (Auto) Eos # (Auto) Seg Neutrophils % Seg Neuts % (Manual) Lymphocytes % (Manual) Seg Neutrophils # Seg Neutrophils # Man Lymphocytes # (Manual) Monocytes % (Manual) Eosinophils % (Manual) Monocytes # (Manual) Eosinophils # (Manual) D-Dimer Heparin Anti-Xa Level ABG pH POC ABG pCO2 POC ABG pO2 ABG pO2 ABG HCO3 ABG O2 Saturation ABG Base Excess ABG Hemoglobin ABG Oxyhemoglobin VBG pH ABG Sodium ABG Potassium ABG Glucose Oxyhemoglobin Sodium Potassium 5.6 H Chloride Carbon Dioxide BUN 86 H Creatinine 2.9 H Glucose 127 H POC Glucose 135 H 131 H Lactic Acid Calcium 8.1 L Ferritin AST Alkaline Phosphatase Magnesium Lactate Dehydrogenase Total Creatine Kinase CK-MB (CK-2) C-Reactive Protein Total Protein Albumin Troponin T HDL Cholesterol Arterial Blood Glucose Urine WBC (Auto) Urine Creatinine Urine Total Protein Phenytoin Coronavirus (PCR) Crossmatch 07/07/20 07/07/20 07/08/20 17:55 23:33 04:14 WBC RBC 3.28 L Hgb 9.7 L Hct 28.9 L D MCHC RDW 16.4 H Lymph % (Auto) 10.3 L [place] % (Auto) 10.0 H Eos % (Auto) Lymph # [place] # Lymph # (Auto) 1.1 L [place] # (Auto) 1.1 H Eos # (Auto) Seg Neutrophils % 77.2 H Seg Neuts % (Manual) Lymphocytes % (Manual) Seg Neutrophils # 8.2 H Seg Neutrophils # Man Lymphocytes # (Manual) Monocytes % (Manual) Eosinophils % (Manual) Monocytes # (Manual) Eosinophils # (Manual) D-Dimer Heparin Anti-Xa Level ABG pH POC ABG pCO2 POC ABG pO2 ABG pO2 ABG HCO3 ABG O2 Saturation ABG Base Excess ABG Hemoglobin ABG Oxyhemoglobin VBG pH ABG Sodium ABG Potassium ABG Glucose Oxyhemoglobin Sodium Potassium Chloride Carbon Dioxide BUN Creatinine Glucose POC Glucose 136 H 159 H Lactic Acid Calcium Ferritin AST Alkaline Phosphatase Magnesium Lactate Dehydrogenase Total Creatine Kinase CK-MB (CK-2) C-Reactive Protein Total Protein Albumin Troponin T HDL Cholesterol Arterial Blood Glucose Urine WBC (Auto) Urine Creatinine Urine Total Protein Phenytoin Coronavirus (PCR) Crossmatch 07/08/20 07/08/20 07/08/20 04:14 12:10 18:10 WBC RBC Hgb Hct MCHC RDW Lymph % (Auto) [place] % (Auto) Eos % (Auto) Lymph # [place] # Lymph # (Auto) [place] # (Auto) Eos # (Auto) Seg Neutrophils % Seg Neuts % (Manual) Lymphocytes % (Manual) Seg Neutrophils # Seg Neutrophils # Man Lymphocytes # (Manual) Monocytes % (Manual) Eosinophils % (Manual) Monocytes # (Manual) Eosinophils # (Manual) D-Dimer Heparin Anti-Xa Level ABG pH POC ABG pCO2 POC ABG pO2 ABG pO2 ABG HCO3 ABG O2 Saturation ABG Base Excess ABG Hemoglobin ABG Oxyhemoglobin VBG pH ABG Sodium ABG Potassium ABG Glucose Oxyhemoglobin Sodium 136 L Potassium Chloride Carbon Dioxide BUN 84 H Creatinine 2.8 H Glucose 109 H POC Glucose 108 H 125 H Lactic Acid Calcium 8.1 L Ferritin AST Alkaline Phosphatase Magnesium 2.50 H Lactate Dehydrogenase Total Creatine Kinase CK-MB (CK-2) C-Reactive Protein Total Protein Albumin Troponin T HDL Cholesterol Arterial Blood Glucose Urine WBC (Auto) Urine Creatinine Urine Total Protein Phenytoin Coronavirus (PCR) Crossmatch 07/08/20 07/09/20 07/09/20 23:50 05:39 11:57 WBC RBC Hgb Hct MCHC RDW Lymph % (Auto) [place] % (Auto) Eos % (Auto) Lymph # [place] # Lymph # (Auto) [place] # (Auto) Eos # (Auto) Seg Neutrophils % Seg Neuts % (Manual) Lymphocytes % (Manual) Seg Neutrophils # Seg Neutrophils # Man Lymphocytes # (Manual) Monocytes % (Manual) Eosinophils % (Manual) Monocytes # (Manual) Eosinophils # (Manual) D-Dimer Heparin Anti-Xa Level ABG pH POC ABG pCO2 POC ABG pO2 ABG pO2 ABG HCO3 ABG O2 Saturation ABG Base Excess ABG Hemoglobin ABG Oxyhemoglobin VBG pH ABG Sodium ABG Potassium ABG Glucose Oxyhemoglobin Sodium Potassium Chloride Carbon Dioxide BUN Creatinine Glucose POC Glucose 141 H 121 H 123 H Lactic Acid Calcium Ferritin AST Alkaline Phosphatase Magnesium Lactate Dehydrogenase Total Creatine Kinase CK-MB (CK-2) C-Reactive Protein Total Protein Albumin Troponin T HDL Cholesterol Arterial Blood Glucose Urine WBC (Auto) Urine Creatinine Urine Total Protein Phenytoin Coronavirus (PCR) Crossmatch 07/09/20 07/10/20 07/10/20 17:56 00:29 05:50 WBC RBC Hgb Hct MCHC RDW Lymph % (Auto) [place] % (Auto) Eos % (Auto) Lymph # [place] # Lymph # (Auto) [place] # (Auto) Eos # (Auto) Seg Neutrophils % Seg Neuts % (Manual) Lymphocytes % (Manual) Seg Neutrophils # Seg Neutrophils # Man Lymphocytes # (Manual) Monocytes % (Manual) Eosinophils % (Manual) Monocytes # (Manual) Eosinophils # (Manual) D-Dimer Heparin Anti-Xa Level ABG pH POC ABG pCO2 POC ABG pO2 ABG pO2 ABG HCO3 ABG O2 Saturation ABG Base Excess ABG Hemoglobin ABG Oxyhemoglobin VBG pH ABG Sodium ABG Potassium ABG Glucose Oxyhemoglobin Sodium Potassium Chloride Carbon Dioxide BUN Creatinine Glucose POC Glucose 119 H 122 H 124 H Lactic Acid Calcium Ferritin AST Alkaline Phosphatase Magnesium Lactate Dehydrogenase Total Creatine Kinase CK-MB (CK-2) C-Reactive Protein Total Protein Albumin Troponin T HDL Cholesterol Arterial Blood Glucose Urine WBC (Auto) Urine Creatinine Urine Total Protein Phenytoin Coronavirus (PCR) Crossmatch 07/10/20 07/10/20 07/10/20 10:41 10:41 12:25 WBC RBC 3.11 L Hgb 9.2 L Hct 27.6 L MCHC RDW 16.6 H Lymph % (Auto) [place] % (Auto) Eos % (Auto) Lymph # [place] # Lymph # (Auto) [place] # (Auto) Eos # (Auto) Seg Neutrophils % Seg Neuts % (Manual) 78.0 H Lymphocytes % (Manual) 11.0 L Seg Neutrophils # Seg Neutrophils # Man Lymphocytes # (Manual) 1.0 L Monocytes % (Manual) Eosinophils % (Manual) Monocytes # (Manual) Eosinophils # (Manual) D-Dimer Heparin Anti-Xa Level ABG pH POC ABG pCO2 POC ABG pO2 ABG pO2 ABG HCO3 ABG O2 Saturation ABG Base Excess ABG Hemoglobin ABG Oxyhemoglobin VBG pH ABG Sodium ABG Potassium ABG Glucose Oxyhemoglobin Sodium Potassium Chloride Carbon Dioxide BUN 85 H Creatinine 2.5 H Glucose 133 H POC Glucose 131 H Lactic Acid Calcium Ferritin AST Alkaline Phosphatase 131 H Magnesium Lactate Dehydrogenase Total Creatine Kinase CK-MB (CK-2) C-Reactive Protein Total Protein 5.2 L Albumin 1.6 L Troponin T HDL Cholesterol Arterial Blood Glucose Urine WBC (Auto) Urine Creatinine Urine Total Protein Phenytoin Coronavirus (PCR) Crossmatch 07/10/20 07/11/20 07/11/20 18:10 00:28 05:57 WBC RBC Hgb Hct MCHC RDW Lymph % (Auto) [place] % (Auto) Eos % (Auto) Lymph # [place] # Lymph # (Auto) [place] # (Auto) Eos # (Auto) Seg Neutrophils % Seg Neuts % (Manual) Lymphocytes % (Manual) Seg Neutrophils # Seg Neutrophils # Man Lymphocytes # (Manual) Monocytes % (Manual) Eosinophils % (Manual) Monocytes # (Manual) Eosinophils # (Manual) D-Dimer Heparin Anti-Xa Level ABG pH POC ABG pCO2 POC ABG pO2 ABG pO2 ABG HCO3 ABG O2 Saturation ABG Base Excess ABG Hemoglobin ABG Oxyhemoglobin VBG pH ABG Sodium ABG Potassium ABG Glucose Oxyhemoglobin Sodium Potassium Chloride Carbon Dioxide BUN Creatinine Glucose POC Glucose 134 H 140 H 148 H Lactic Acid Calcium Ferritin AST Alkaline Phosphatase Magnesium Lactate Dehydrogenase Total Creatine Kinase CK-MB (CK-2) C-Reactive Protein Total Protein Albumin Troponin T HDL Cholesterol Arterial Blood Glucose Urine WBC (Auto) Urine Creatinine Urine Total Protein Phenytoin Coronavirus (PCR) Crossmatch 07/11/20 07/11/20 07/11/20 12:14 17:28 23:49 WBC RBC Hgb Hct MCHC RDW Lymph % (Auto) [place] % (Auto) Eos % (Auto) Lymph # [place] # Lymph # (Auto) [place] # (Auto) Eos # (Auto) Seg Neutrophils % Seg Neuts % (Manual) Lymphocytes % (Manual) Seg Neutrophils # Seg Neutrophils # Man Lymphocytes # (Manual) Monocytes % (Manual) Eosinophils % (Manual) Monocytes # (Manual) Eosinophils # (Manual) D-Dimer Heparin Anti-Xa Level ABG pH POC ABG pCO2 POC ABG pO2 ABG pO2 ABG HCO3 ABG O2 Saturation ABG Base Excess ABG Hemoglobin ABG Oxyhemoglobin VBG pH ABG Sodium ABG Potassium ABG Glucose Oxyhemoglobin Sodium Potassium Chloride Carbon Dioxide BUN Creatinine Glucose POC Glucose 147 H 175 H 114 H Lactic Acid Calcium Ferritin AST Alkaline Phosphatase Magnesium Lactate Dehydrogenase Total Creatine Kinase CK-MB (CK-2) C-Reactive Protein Total Protein Albumin Troponin T HDL Cholesterol Arterial Blood Glucose Urine WBC (Auto) Urine Creatinine Urine Total Protein Phenytoin Coronavirus (PCR) Crossmatch 07/12/20 07/12/20 07/12/20 05:14 05:14 05:44 WBC RBC 2.78 L Hgb 8.5 L Hct 25.3 L MCHC RDW 16.7 H Lymph % (Auto) [place] % (Auto) Eos % (Auto) Lymph # [place] # Lymph # (Auto) [place] # (Auto) Eos # (Auto) Seg Neutrophils % Seg Neuts % (Manual) 81.0 H Lymphocytes % (Manual) 6.0 L Seg Neutrophils # Seg Neutrophils # Man Lymphocytes # (Manual) 0.6 L Monocytes % (Manual) 8.0 H Eosinophils % (Manual) Monocytes # (Manual) Eosinophils # (Manual) D-Dimer Heparin Anti-Xa Level ABG pH POC ABG pCO2 POC ABG pO2 ABG pO2 ABG HCO3 ABG O2 Saturation ABG Base Excess ABG Hemoglobin ABG Oxyhemoglobin VBG pH ABG Sodium ABG Potassium ABG Glucose Oxyhemoglobin Sodium Potassium Chloride Carbon Dioxide BUN 79 H Creatinine 2.2 H Glucose 131 H POC Glucose 116 H Lactic Acid Calcium Ferritin AST Alkaline Phosphatase Magnesium Lactate Dehydrogenase Total Creatine Kinase CK-MB (CK-2) C-Reactive Protein Total Protein Albumin Troponin T HDL Cholesterol Arterial Blood Glucose Urine WBC (Auto) Urine Creatinine Urine Total Protein Phenytoin Coronavirus (PCR) Crossmatch 07/12/20 07/12/20 07/13/20 11:32 17:53 00:18 WBC RBC Hgb Hct MCHC RDW Lymph % (Auto) [place] % (Auto) Eos % (Auto) Lymph # [place] # Lymph # (Auto) [place] # (Auto) Eos # (Auto) Seg Neutrophils % Seg Neuts % (Manual) Lymphocytes % (Manual) Seg Neutrophils # Seg Neutrophils # Man Lymphocytes # (Manual) Monocytes % (Manual) Eosinophils % (Manual) Monocytes # (Manual) Eosinophils # (Manual) D-Dimer Heparin Anti-Xa Level ABG pH POC ABG pCO2 POC ABG pO2 ABG pO2 ABG HCO3 ABG O2 Saturation ABG Base Excess ABG Hemoglobin ABG Oxyhemoglobin VBG pH ABG Sodium ABG Potassium ABG Glucose Oxyhemoglobin Sodium Potassium Chloride Carbon Dioxide BUN Creatinine Glucose POC Glucose 132 H 155 H 162 H Lactic Acid Calcium Ferritin AST Alkaline Phosphatase Magnesium Lactate Dehydrogenase Total Creatine Kinase CK-MB (CK-2) C-Reactive Protein Total Protein Albumin Troponin T HDL Cholesterol Arterial Blood Glucose Urine WBC (Auto) Urine Creatinine Urine Total Protein Phenytoin Coronavirus (PCR) Crossmatch 07/13/20 07/13/20 07/13/20 04:53 04:53 06:14 WBC RBC 2.86 L Hgb 8.4 L Hct 25.7 L MCHC RDW 16.8 H Lymph % (Auto) [place] % (Auto) Eos % (Auto) Lymph # [place] # Lymph # (Auto) [place] # (Auto) Eos # (Auto) Seg Neutrophils % Seg Neuts % (Manual) 84.0 H Lymphocytes % (Manual) 7.0 L Seg Neutrophils # Seg Neutrophils # Man Lymphocytes # (Manual) 0.6 L Monocytes % (Manual) Eosinophils % (Manual) Monocytes # (Manual) Eosinophils # (Manual) D-Dimer Heparin Anti-Xa Level ABG pH POC ABG pCO2 POC ABG pO2 ABG pO2 ABG HCO3 ABG O2 Saturation ABG Base Excess ABG Hemoglobin ABG Oxyhemoglobin VBG pH ABG Sodium ABG Potassium ABG Glucose Oxyhemoglobin Sodium 136 L Potassium Chloride Carbon Dioxide BUN 78 H Creatinine 2.0 H Glucose 130 H POC Glucose 141 H Lactic Acid Calcium Ferritin AST Alkaline Phosphatase Magnesium Lactate Dehydrogenase Total Creatine Kinase CK-MB (CK-2) C-Reactive Protein Total Protein Albumin Troponin T HDL Cholesterol Arterial Blood Glucose Urine WBC (Auto) Urine Creatinine Urine Total Protein Phenytoin Coronavirus (PCR) Crossmatch 07/13/20 07/13/20 07/14/20 12:50 18:27 00:22 WBC RBC Hgb Hct MCHC RDW Lymph % (Auto) [place] % (Auto) Eos % (Auto) Lymph # [place] # Lymph # (Auto) [place] # (Auto) Eos # (Auto) Seg Neutrophils % Seg Neuts % (Manual) Lymphocytes % (Manual) Seg Neutrophils # Seg Neutrophils # Man Lymphocytes # (Manual) Monocytes % (Manual) Eosinophils % (Manual) Monocytes # (Manual) Eosinophils # (Manual) D-Dimer Heparin Anti-Xa Level ABG pH POC ABG pCO2 POC ABG pO2 ABG pO2 ABG HCO3 ABG O2 Saturation ABG Base Excess ABG Hemoglobin ABG Oxyhemoglobin VBG pH ABG Sodium ABG Potassium ABG Glucose Oxyhemoglobin Sodium Potassium Chloride Carbon Dioxide BUN Creatinine Glucose POC Glucose 146 H 149 H 157 H Lactic Acid Calcium Ferritin AST Alkaline Phosphatase Magnesium Lactate Dehydrogenase Total Creatine Kinase CK-MB (CK-2) C-Reactive Protein Total Protein Albumin Troponin T HDL Cholesterol Arterial Blood Glucose Urine WBC (Auto) Urine Creatinine Urine Total Protein Phenytoin Coronavirus (PCR) Crossmatch 07/14/20 07/14/20 07/14/20 05:43 08:04 12:12 WBC RBC Hgb Hct MCHC RDW Lymph % (Auto) [place] % (Auto) Eos % (Auto) Lymph # [place] # Lymph # (Auto) [place] # (Auto) Eos # (Auto) Seg Neutrophils % Seg Neuts % (Manual) Lymphocytes % (Manual) Seg Neutrophils # Seg Neutrophils # Man Lymphocytes # (Manual) Monocytes % (Manual) Eosinophils % (Manual) Monocytes # (Manual) Eosinophils # (Manual) D-Dimer Heparin Anti-Xa Level ABG pH POC ABG pCO2 POC ABG pO2 ABG pO2 ABG HCO3 ABG O2 Saturation ABG Base Excess ABG Hemoglobin ABG Oxyhemoglobin VBG pH ABG Sodium ABG Potassium ABG Glucose Oxyhemoglobin Sodium Potassium Chloride Carbon Dioxide BUN Creatinine Glucose POC Glucose 169 H 185 H Lactic Acid Calcium Ferritin AST Alkaline Phosphatase Magnesium Lactate Dehydrogenase Total Creatine Kinase CK-MB (CK-2) C-Reactive Protein Total Protein Albumin Troponin T HDL Cholesterol Arterial Blood Glucose Urine WBC (Auto) Urine Creatinine Urine Total Protein Phenytoin Coronavirus (PCR) Positive A Crossmatch 07/14/20 07/15/20 07/15/20 17:23 00:04 06:06 WBC RBC Hgb Hct MCHC RDW Lymph % (Auto) [place] % (Auto) Eos % (Auto) Lymph # [place] # Lymph # (Auto) [place] # (Auto) Eos # (Auto) Seg Neutrophils % Seg Neuts % (Manual) Lymphocytes % (Manual) Seg Neutrophils # Seg Neutrophils # Man Lymphocytes # (Manual) Monocytes % (Manual) Eosinophils % (Manual) Monocytes # (Manual) Eosinophils # (Manual) D-Dimer Heparin Anti-Xa Level ABG pH POC ABG pCO2 POC ABG pO2 ABG pO2 ABG HCO3 ABG O2 Saturation ABG Base Excess ABG Hemoglobin ABG Oxyhemoglobin VBG pH ABG Sodium ABG Potassium ABG Glucose Oxyhemoglobin Sodium Potassium Chloride Carbon Dioxide BUN Creatinine Glucose POC Glucose 138 H 121 H 140 H Lactic Acid Calcium Ferritin AST Alkaline Phosphatase Magnesium Lactate Dehydrogenase Total Creatine Kinase CK-MB (CK-2) C-Reactive Protein Total Protein Albumin Troponin T HDL Cholesterol Arterial Blood Glucose Urine WBC (Auto) Urine Creatinine Urine Total Protein Phenytoin Coronavirus (PCR) Crossmatch 07/15/20 07/15/20 07/15/20 12:00 17:53 23:53 WBC RBC Hgb Hct MCHC RDW Lymph % (Auto) [place] % (Auto) Eos % (Auto) Lymph # [place] # Lymph # (Auto) [place] # (Auto) Eos # (Auto) Seg Neutrophils % Seg Neuts % (Manual) Lymphocytes % (Manual) Seg Neutrophils # Seg Neutrophils # Man Lymphocytes # (Manual) Monocytes % (Manual) Eosinophils % (Manual) Monocytes # (Manual) Eosinophils # (Manual) D-Dimer Heparin Anti-Xa Level ABG pH POC ABG pCO2 POC ABG pO2 ABG pO2 ABG HCO3 ABG O2 Saturation ABG Base Excess ABG Hemoglobin ABG Oxyhemoglobin VBG pH ABG Sodium ABG Potassium ABG Glucose Oxyhemoglobin Sodium Potassium Chloride Carbon Dioxide BUN Creatinine Glucose POC Glucose 137 H 161 H 156 H Lactic Acid Calcium Ferritin AST Alkaline Phosphatase Magnesium Lactate Dehydrogenase Total Creatine Kinase CK-MB (CK-2) C-Reactive Protein Total Protein Albumin Troponin T HDL Cholesterol Arterial Blood Glucose Urine WBC (Auto) Urine Creatinine Urine Total Protein Phenytoin Coronavirus (PCR) Crossmatch 07/16/20 07/16/20 07/17/20 05:26 17:44 00:07 WBC RBC Hgb Hct MCHC RDW Lymph % (Auto) [place] % (Auto) Eos % (Auto) Lymph # [place] # Lymph # (Auto) [place] # (Auto) Eos # (Auto) Seg Neutrophils % Seg Neuts % (Manual) Lymphocytes % (Manual) Seg Neutrophils # Seg Neutrophils # Man Lymphocytes # (Manual) Monocytes % (Manual) Eosinophils % (Manual) Monocytes # (Manual) Eosinophils # (Manual) D-Dimer Heparin Anti-Xa Level ABG pH POC ABG pCO2 POC ABG pO2 ABG pO2 ABG HCO3 ABG O2 Saturation ABG Base Excess ABG Hemoglobin ABG Oxyhemoglobin VBG pH ABG Sodium ABG Potassium ABG Glucose Oxyhemoglobin Sodium Potassium Chloride Carbon Dioxide BUN Creatinine Glucose POC Glucose 152 H 126 H 189 H Lactic Acid Calcium Ferritin AST Alkaline Phosphatase Magnesium Lactate Dehydrogenase Total Creatine Kinase CK-MB (CK-2) C-Reactive Protein Total Protein Albumin Troponin T HDL Cholesterol Arterial Blood Glucose Urine WBC (Auto) Urine Creatinine Urine Total Protein Phenytoin Coronavirus (PCR) Crossmatch 07/17/20 07/17/20 07/17/20 12:06 18:20 23:25 WBC RBC Hgb Hct MCHC RDW Lymph % (Auto) [place] % (Auto) Eos % (Auto) Lymph # [place] # Lymph # (Auto) [place] # (Auto) Eos # (Auto) Seg Neutrophils % Seg Neuts % (Manual) Lymphocytes % (Manual) Seg Neutrophils # Seg Neutrophils # Man Lymphocytes # (Manual) Monocytes % (Manual) Eosinophils % (Manual) Monocytes # (Manual) Eosinophils # (Manual) D-Dimer Heparin Anti-Xa Level ABG pH POC ABG pCO2 POC ABG pO2 ABG pO2 ABG HCO3 ABG O2 Saturation ABG Base Excess ABG Hemoglobin ABG Oxyhemoglobin VBG pH ABG Sodium ABG Potassium ABG Glucose Oxyhemoglobin Sodium Potassium Chloride Carbon Dioxide BUN Creatinine Glucose POC Glucose 155 H 206 H 161 H Lactic Acid Calcium Ferritin AST Alkaline Phosphatase Magnesium Lactate Dehydrogenase Total Creatine Kinase CK-MB (CK-2) C-Reactive Protein Total Protein Albumin Troponin T HDL Cholesterol Arterial Blood Glucose Urine WBC (Auto) Urine Creatinine Urine Total Protein Phenytoin Coronavirus (PCR) Crossmatch 07/18/20 07/18/20 07/18/20 04:24 05:16 11:53 WBC RBC Hgb Hct MCHC RDW Lymph % (Auto) [place] % (Auto) Eos % (Auto) Lymph # [place] # Lymph # (Auto) [place] # (Auto) Eos # (Auto) Seg Neutrophils % Seg Neuts % (Manual) Lymphocytes % (Manual) Seg Neutrophils # Seg Neutrophils # Man Lymphocytes # (Manual) Monocytes % (Manual) Eosinophils % (Manual) Monocytes # (Manual) Eosinophils # (Manual) D-Dimer Heparin Anti-Xa Level ABG pH POC ABG pCO2 POC ABG pO2 ABG pO2 ABG HCO3 ABG O2 Saturation ABG Base Excess ABG Hemoglobin 8.8 L ABG Oxyhemoglobin VBG pH ABG Sodium 131.6 L ABG Potassium 4.9 H ABG Glucose 131 H Oxyhemoglobin Sodium Potassium Chloride Carbon Dioxide BUN Creatinine Glucose POC Glucose 140 H 176 H Lactic Acid Calcium Ferritin AST Alkaline Phosphatase Magnesium Lactate Dehydrogenase Total Creatine Kinase CK-MB (CK-2) C-Reactive Protein Total Protein Albumin Troponin T HDL Cholesterol Arterial Blood Glucose 131 H Urine WBC (Auto) Urine Creatinine Urine Total Protein Phenytoin Coronavirus (PCR) Crossmatch 07/18/20 07/18/20 07/19/20 18:11 23:51 01:05 WBC RBC 2.76 L Hgb 7.9 L Hct 24.5 L MCHC RDW 17.6 H Lymph % (Auto) 11.6 L [place] % (Auto) 13.1 H Eos % (Auto) Lymph # [place] # Lymph # (Auto) 1.0 L [place] # (Auto) 1.1 H Eos # (Auto) Seg Neutrophils % 70.9 H Seg Neuts % (Manual) Lymphocytes % (Manual) Seg Neutrophils # Seg Neutrophils # Man Lymphocytes # (Manual) Monocytes % (Manual) Eosinophils % (Manual) Monocytes # (Manual) Eosinophils # (Manual) D-Dimer Heparin Anti-Xa Level ABG pH POC ABG pCO2 POC ABG pO2 ABG pO2 ABG HCO3 ABG O2 Saturation ABG Base Excess ABG Hemoglobin ABG Oxyhemoglobin VBG pH ABG Sodium ABG Potassium ABG Glucose Oxyhemoglobin Sodium Potassium Chloride Carbon Dioxide BUN Creatinine Glucose POC Glucose 143 H 159 H Lactic Acid Calcium Ferritin AST Alkaline Phosphatase Magnesium Lactate Dehydrogenase Total Creatine Kinase CK-MB (CK-2) C-Reactive Protein Total Protein Albumin Troponin T HDL Cholesterol Arterial Blood Glucose Urine WBC (Auto) Urine Creatinine Urine Total Protein Phenytoin Coronavirus (PCR) Crossmatch 07/19/20 07/19/20 07/19/20 01:05 05:54 12:46 WBC RBC Hgb Hct MCHC RDW Lymph % (Auto) [place] % (Auto) Eos % (Auto) Lymph # [place] # Lymph # (Auto) [place] # (Auto) Eos # (Auto) Seg Neutrophils % Seg Neuts % (Manual) Lymphocytes % (Manual) Seg Neutrophils # Seg Neutrophils # Man Lymphocytes # (Manual) Monocytes % (Manual) Eosinophils % (Manual) Monocytes # (Manual) Eosinophils # (Manual) D-Dimer Heparin Anti-Xa Level ABG pH POC ABG pCO2 POC ABG pO2 ABG pO2 ABG HCO3 ABG O2 Saturation ABG Base Excess ABG Hemoglobin ABG Oxyhemoglobin VBG pH ABG Sodium ABG Potassium ABG Glucose Oxyhemoglobin Sodium Potassium Chloride Carbon Dioxide BUN 86 H Creatinine 1.7 H Glucose 149 H POC Glucose 176 H 127 H Lactic Acid Calcium Ferritin AST Alkaline Phosphatase Magnesium Lactate Dehydrogenase Total Creatine Kinase CK-MB (CK-2) C-Reactive Protein Total Protein Albumin Troponin T HDL Cholesterol Arterial Blood Glucose Urine WBC (Auto) Urine Creatinine Urine Total Protein Phenytoin Coronavirus (PCR) Crossmatch 07/19/20 07/20/20 07/20/20 17:48 00:34 05:28 WBC RBC Hgb Hct MCHC RDW Lymph % (Auto) [place] % (Auto) Eos % (Auto) Lymph # [place] # Lymph # (Auto) [place] # (Auto) Eos # (Auto) Seg Neutrophils % Seg Neuts % (Manual) Lymphocytes % (Manual) Seg Neutrophils # Seg Neutrophils # Man Lymphocytes # (Manual) Monocytes % (Manual) Eosinophils % (Manual) Monocytes # (Manual) Eosinophils # (Manual) D-Dimer Heparin Anti-Xa Level ABG pH POC ABG pCO2 POC ABG pO2 ABG pO2 ABG HCO3 ABG O2 Saturation ABG Base Excess ABG Hemoglobin ABG Oxyhemoglobin VBG pH ABG Sodium ABG Potassium ABG Glucose Oxyhemoglobin Sodium Potassium Chloride Carbon Dioxide BUN Creatinine Glucose POC Glucose 123 H 147 H 110 H Lactic Acid Calcium Ferritin AST Alkaline Phosphatase Magnesium Lactate Dehydrogenase Total Creatine Kinase CK-MB (CK-2) C-Reactive Protein Total Protein Albumin Troponin T HDL Cholesterol Arterial Blood Glucose Urine WBC (Auto) Urine Creatinine Urine Total Protein Phenytoin Coronavirus (PCR) Crossmatch 07/20/20 07/20/20 07/21/20 12:10 17:00 00:11 WBC RBC Hgb Hct MCHC RDW Lymph % (Auto) [place] % (Auto) Eos % (Auto) Lymph # [place] # Lymph # (Auto) [place] # (Auto) Eos # (Auto) Seg Neutrophils % Seg Neuts % (Manual) Lymphocytes % (Manual) Seg Neutrophils # Seg Neutrophils # Man Lymphocytes # (Manual) Monocytes % (Manual) Eosinophils % (Manual) Monocytes # (Manual) Eosinophils # (Manual) D-Dimer Heparin Anti-Xa Level ABG pH POC ABG pCO2 POC ABG pO2 ABG pO2 ABG HCO3 ABG O2 Saturation ABG Base Excess ABG Hemoglobin ABG Oxyhemoglobin VBG pH ABG Sodium ABG Potassium ABG Glucose Oxyhemoglobin Sodium Potassium Chloride Carbon Dioxide BUN Creatinine Glucose POC Glucose 149 H 173 H 128 H Lactic Acid Calcium Ferritin AST Alkaline Phosphatase Magnesium Lactate Dehydrogenase Total Creatine Kinase CK-MB (CK-2) C-Reactive Protein Total Protein Albumin Troponin T HDL Cholesterol Arterial Blood Glucose Urine WBC (Auto) Urine Creatinine Urine Total Protein Phenytoin Coronavirus (PCR) Crossmatch 07/21/20 07/21/20 07/21/20 05:30 12:21 18:17 WBC RBC Hgb Hct MCHC RDW Lymph % (Auto) [place] % (Auto) Eos % (Auto) Lymph # [place] # Lymph # (Auto) [place] # (Auto) Eos # (Auto) Seg Neutrophils % Seg Neuts % (Manual) Lymphocytes % (Manual) Seg Neutrophils # Seg Neutrophils # Man Lymphocytes # (Manual) Monocytes % (Manual) Eosinophils % (Manual) Monocytes # (Manual) Eosinophils # (Manual) D-Dimer Heparin Anti-Xa Level ABG pH POC ABG pCO2 POC ABG pO2 ABG pO2 ABG HCO3 ABG O2 Saturation ABG Base Excess ABG Hemoglobin ABG Oxyhemoglobin VBG pH ABG Sodium ABG Potassium ABG Glucose Oxyhemoglobin Sodium Potassium Chloride Carbon Dioxide BUN Creatinine Glucose POC Glucose 153 H 144 H 160 H Lactic Acid Calcium Ferritin AST Alkaline Phosphatase Magnesium Lactate Dehydrogenase Total Creatine Kinase CK-MB (CK-2) C-Reactive Protein Total Protein Albumin Troponin T HDL Cholesterol Arterial Blood Glucose Urine WBC (Auto) Urine Creatinine Urine Total Protein Phenytoin Coronavirus (PCR) Crossmatch 07/22/20 07/22/20 07/22/20 00:45 05:52 12:03 WBC RBC Hgb Hct MCHC RDW Lymph % (Auto) [place] % (Auto) Eos % (Auto) Lymph # [place] # Lymph # (Auto) [place] # (Auto) Eos # (Auto) Seg Neutrophils % Seg Neuts % (Manual) Lymphocytes % (Manual) Seg Neutrophils # Seg Neutrophils # Man Lymphocytes # (Manual) Monocytes % (Manual) Eosinophils % (Manual) Monocytes # (Manual) Eosinophils # (Manual) D-Dimer Heparin Anti-Xa Level ABG pH POC ABG pCO2 POC ABG pO2 ABG pO2 ABG HCO3 ABG O2 Saturation ABG Base Excess ABG Hemoglobin ABG Oxyhemoglobin VBG pH ABG Sodium ABG Potassium ABG Glucose Oxyhemoglobin Sodium Potassium Chloride Carbon Dioxide BUN Creatinine Glucose POC Glucose 128 H 126 H 157 H Lactic Acid Calcium Ferritin AST Alkaline Phosphatase Magnesium Lactate Dehydrogenase Total Creatine Kinase CK-MB (CK-2) C-Reactive Protein Total Protein Albumin Troponin T HDL Cholesterol Arterial Blood Glucose Urine WBC (Auto) Urine Creatinine Urine Total Protein Phenytoin Coronavirus (PCR) Crossmatch 07/22/20 07/22/20 07/23/20 18:23 23:20 06:06 WBC RBC Hgb Hct MCHC RDW Lymph % (Auto) [place] % (Auto) Eos % (Auto) Lymph # [place] # Lymph # (Auto) [place] # (Auto) Eos # (Auto) Seg Neutrophils % Seg Neuts % (Manual) Lymphocytes % (Manual) Seg Neutrophils # Seg Neutrophils # Man Lymphocytes # (Manual) Monocytes % (Manual) Eosinophils % (Manual) Monocytes # (Manual) Eosinophils # (Manual) D-Dimer Heparin Anti-Xa Level ABG pH POC ABG pCO2 POC ABG pO2 ABG pO2 ABG HCO3 ABG O2 Saturation ABG Base Excess ABG Hemoglobin ABG Oxyhemoglobin VBG pH ABG Sodium ABG Potassium ABG Glucose Oxyhemoglobin Sodium Potassium Chloride Carbon Dioxide BUN Creatinine Glucose POC Glucose 152 H 122 H 143 H Lactic Acid Calcium Ferritin AST Alkaline Phosphatase Magnesium Lactate Dehydrogenase Total Creatine Kinase CK-MB (CK-2) C-Reactive Protein Total Protein Albumin Troponin T HDL Cholesterol Arterial Blood Glucose Urine WBC (Auto) Urine Creatinine Urine Total Protein Phenytoin Coronavirus (PCR) Crossmatch 07/23/20 07/23/20 07/23/20 12:11 17:38 19:23 WBC RBC Hgb Hct MCHC RDW Lymph % (Auto) [place] % (Auto) Eos % (Auto) Lymph # [place] # Lymph # (Auto) [place] # (Auto) Eos # (Auto) Seg Neutrophils % Seg Neuts % (Manual) Lymphocytes % (Manual) Seg Neutrophils # Seg Neutrophils # Man Lymphocytes # (Manual) Monocytes % (Manual) Eosinophils % (Manual) Monocytes # (Manual) Eosinophils # (Manual) D-Dimer Heparin Anti-Xa Level ABG pH POC ABG pCO2 POC ABG pO2 ABG pO2 ABG HCO3 ABG O2 Saturation ABG Base Excess ABG Hemoglobin ABG Oxyhemoglobin VBG pH ABG Sodium ABG Potassium ABG Glucose Oxyhemoglobin Sodium 129 L D Potassium 5.8 H Chloride 95.6 L Carbon Dioxide BUN 98 H Creatinine 2.1 H Glucose 167 H POC Glucose 210 H 181 H Lactic Acid Calcium Ferritin AST Alkaline Phosphatase Magnesium Lactate Dehydrogenase Total Creatine Kinase CK-MB (CK-2) C-Reactive Protein Total Protein Albumin 2.2 L Troponin T HDL Cholesterol Arterial Blood Glucose Urine WBC (Auto) Urine Creatinine Urine Total Protein Phenytoin Coronavirus (PCR) Crossmatch 07/24/20 07/24/20 07/24/20 00:00 04:29 04:29 WBC RBC 2.53 L Hgb 7.5 L Hct 22.8 L MCHC RDW 16.8 H Lymph % (Auto) 9.4 L [place] % (Auto) 10.4 H Eos % (Auto) 5.9 H Lymph # [place] # Lymph # (Auto) 0.8 L [place] # (Auto) 0.9 H Eos # (Auto) 0.5 H Seg Neutrophils % 73.5 H Seg Neuts % (Manual) Lymphocytes % (Manual) Seg Neutrophils # Seg Neutrophils # Man Lymphocytes # (Manual) Monocytes % (Manual) Eosinophils % (Manual) Monocytes # (Manual) Eosinophils # (Manual) D-Dimer Heparin Anti-Xa Level ABG pH POC ABG pCO2 POC ABG pO2 ABG pO2 ABG HCO3 ABG O2 Saturation ABG Base Excess ABG Hemoglobin ABG Oxyhemoglobin VBG pH ABG Sodium ABG Potassium ABG Glucose Oxyhemoglobin Sodium Potassium Chloride Carbon Dioxide BUN Creatinine Glucose POC Glucose 201 H Lactic Acid Calcium Ferritin AST Alkaline Phosphatase Magnesium Lactate Dehydrogenase Total Creatine Kinase CK-MB (CK-2) C-Reactive Protein Total Protein Albumin Troponin T HDL Cholesterol Arterial Blood Glucose Urine WBC (Auto) Urine Creatinine Urine Total Protein Phenytoin 9.4 L Coronavirus (PCR) Crossmatch 07/24/20 07/24/20 07/24/20 04:29 05:11 12:14 WBC RBC Hgb Hct MCHC RDW Lymph % (Auto) [place] % (Auto) Eos % (Auto) Lymph # [place] # Lymph # (Auto) [place] # (Auto) Eos # (Auto) Seg Neutrophils % Seg Neuts % (Manual) Lymphocytes % (Manual) Seg Neutrophils # Seg Neutrophils # Man Lymphocytes # (Manual) Monocytes % (Manual) Eosinophils % (Manual) Monocytes # (Manual) Eosinophils # (Manual) D-Dimer Heparin Anti-Xa Level ABG pH POC ABG pCO2 POC ABG pO2 ABG pO2 ABG HCO3 ABG O2 Saturation ABG Base Excess ABG Hemoglobin ABG Oxyhemoglobin VBG pH ABG Sodium ABG Potassium ABG Glucose Oxyhemoglobin Sodium 134 L Potassium 5.5 H Chloride Carbon Dioxide BUN 97 H Creatinine 2.2 H Glucose 149 H POC Glucose 142 H 146 H Lactic Acid Calcium Ferritin AST Alkaline Phosphatase Magnesium 2.60 H Lactate Dehydrogenase Total Creatine Kinase CK-MB (CK-2) C-Reactive Protein Total Protein Albumin Troponin T HDL Cholesterol Arterial Blood Glucose Urine WBC (Auto) Urine Creatinine Urine Total Protein Phenytoin Coronavirus (PCR) Crossmatch 07/24/20 07/24/20 07/25/20 18:12 21:00 00:08 WBC RBC Hgb Hct MCHC RDW Lymph % (Auto) [place] % (Auto) Eos % (Auto) Lymph # [place] # Lymph # (Auto) [place] # (Auto) Eos # (Auto) Seg Neutrophils % Seg Neuts % (Manual) Lymphocytes % (Manual) Seg Neutrophils # Seg Neutrophils # Man Lymphocytes # (Manual) Monocytes % (Manual) Eosinophils % (Manual) Monocytes # (Manual) Eosinophils # (Manual) D-Dimer Heparin Anti-Xa Level ABG pH POC ABG pCO2 POC ABG pO2 ABG pO2 ABG HCO3 ABG O2 Saturation ABG Base Excess ABG Hemoglobin ABG Oxyhemoglobin VBG pH ABG Sodium ABG Potassium ABG Glucose Oxyhemoglobin Sodium Potassium Chloride Carbon Dioxide BUN Creatinine Glucose POC Glucose 182 H 170 H 129 H Lactic Acid Calcium Ferritin AST Alkaline Phosphatase Magnesium Lactate Dehydrogenase Total Creatine Kinase CK-MB (CK-2) C-Reactive Protein Total Protein Albumin Troponin T HDL Cholesterol Arterial Blood Glucose Urine WBC (Auto) Urine Creatinine Urine Total Protein Phenytoin Coronavirus (PCR) Crossmatch 07/25/20 07/25/20 07/25/20 04:24 04:24 12:19 WBC RBC 2.51 L Hgb 7.5 L Hct 22.3 L MCHC RDW 17.4 H Lymph % (Auto) [place] % (Auto) Eos % (Auto) Lymph # [place] # Lymph # (Auto) [place] # (Auto) Eos # (Auto) Seg Neutrophils % Seg Neuts % (Manual) Lymphocytes % (Manual) Seg Neutrophils # Seg Neutrophils # Man Lymphocytes # (Manual) Monocytes % (Manual) Eosinophils % (Manual) Monocytes # (Manual) Eosinophils # (Manual) D-Dimer Heparin Anti-Xa Level ABG pH POC ABG pCO2 POC ABG pO2 ABG pO2 ABG HCO3 ABG O2 Saturation ABG Base Excess ABG Hemoglobin ABG Oxyhemoglobin VBG pH ABG Sodium ABG Potassium ABG Glucose Oxyhemoglobin Sodium 132 L Potassium Chloride 95.1 L Carbon Dioxide 21 L BUN 95 H Creatinine 2.5 H Glucose 108 H POC Glucose 122 H Lactic Acid Calcium Ferritin AST Alkaline Phosphatase Magnesium Lactate Dehydrogenase Total Creatine Kinase CK-MB (CK-2) C-Reactive Protein Total Protein Albumin Troponin T HDL Cholesterol Arterial Blood Glucose Urine WBC (Auto) Urine Creatinine Urine Total Protein Phenytoin Coronavirus (PCR) Crossmatch 07/25/20 07/25/20 07/26/20 18:11 23:24 04:22 WBC RBC Hgb Hct MCHC RDW Lymph % (Auto) [place] % (Auto) Eos % (Auto) Lymph # [place] # Lymph # (Auto) [place] # (Auto) Eos # (Auto) Seg Neutrophils % Seg Neuts % (Manual) Lymphocytes % (Manual) Seg Neutrophils # Seg Neutrophils # Man Lymphocytes # (Manual) Monocytes % (Manual) Eosinophils % (Manual) Monocytes # (Manual) Eosinophils # (Manual) D-Dimer Heparin Anti-Xa Level ABG pH POC ABG pCO2 POC ABG pO2 ABG pO2 ABG HCO3 ABG O2 Saturation ABG Base Excess ABG Hemoglobin ABG Oxyhemoglobin VBG pH ABG Sodium ABG Potassium ABG Glucose Oxyhemoglobin Sodium 132 L Potassium Chloride 96.2 L Carbon Dioxide 21 L BUN 99 H Creatinine 2.5 H Glucose 132 H POC Glucose 137 H 117 H Lactic Acid Calcium 8.2 L Ferritin AST Alkaline Phosphatase Magnesium Lactate Dehydrogenase Total Creatine Kinase CK-MB (CK-2) C-Reactive Protein Total Protein Albumin Troponin T HDL Cholesterol Arterial Blood Glucose Urine WBC (Auto) Urine Creatinine Urine Total Protein Phenytoin Coronavirus (PCR) Crossmatch 07/26/20 07/26/20 07/26/20 05:58 12:21 17:31 WBC RBC Hgb Hct MCHC RDW Lymph % (Auto) [place] % (Auto) Eos % (Auto) Lymph # [place] # Lymph # (Auto) [place] # (Auto) Eos # (Auto) Seg Neutrophils % Seg Neuts % (Manual) Lymphocytes % (Manual) Seg Neutrophils # Seg Neutrophils # Man Lymphocytes # (Manual) Monocytes % (Manual) Eosinophils % (Manual) Monocytes # (Manual) Eosinophils # (Manual) D-Dimer Heparin Anti-Xa Level ABG pH POC ABG pCO2 POC ABG pO2 ABG pO2 ABG HCO3 ABG O2 Saturation ABG Base Excess ABG Hemoglobin ABG Oxyhemoglobin VBG pH ABG Sodium ABG Potassium ABG Glucose Oxyhemoglobin Sodium Potassium Chloride Carbon Dioxide BUN Creatinine Glucose POC Glucose 110 H 142 H 180 H Lactic Acid Calcium Ferritin AST Alkaline Phosphatase Magnesium Lactate Dehydrogenase Total Creatine Kinase CK-MB (CK-2) C-Reactive Protein Total Protein Albumin Troponin T HDL Cholesterol Arterial Blood Glucose Urine WBC (Auto) Urine Creatinine Urine Total Protein Phenytoin Coronavirus (PCR) Crossmatch 07/26/20 07/27/20 07/27/20 23:36 03:36 05:36 WBC RBC 2.49 L Hgb 7.3 L Hct 22.2 L MCHC RDW 17.2 H Lymph % (Auto) 11.0 L [place] % (Auto) 11.7 H Eos % (Auto) Lymph # [place] # Lymph # (Auto) 0.8 L [place] # (Auto) 0.9 H Eos # (Auto) Seg Neutrophils % 72.3 H Seg Neuts % (Manual) Lymphocytes % (Manual) Seg Neutrophils # Seg Neutrophils # Man Lymphocytes # (Manual) Monocytes % (Manual) Eosinophils % (Manual) Monocytes # (Manual) Eosinophils # (Manual) D-Dimer Heparin Anti-Xa Level ABG pH POC ABG pCO2 POC ABG pO2 ABG pO2 ABG HCO3 ABG O2 Saturation ABG Base Excess ABG Hemoglobin ABG Oxyhemoglobin VBG pH ABG Sodium ABG Potassium ABG Glucose Oxyhemoglobin Sodium Potassium Chloride Carbon Dioxide BUN Creatinine Glucose POC Glucose 162 H 118 H Lactic Acid Calcium Ferritin AST Alkaline Phosphatase Magnesium Lactate Dehydrogenase Total Creatine Kinase CK-MB (CK-2) C-Reactive Protein Total Protein Albumin Troponin T HDL Cholesterol Arterial Blood Glucose Urine WBC (Auto) Urine Creatinine Urine Total Protein Phenytoin Coronavirus (PCR) Crossmatch 07/27/20 07/27/20 07/27/20 05:36 12:19 17:36 WBC RBC Hgb Hct MCHC RDW Lymph % (Auto) [place] % (Auto) Eos % (Auto) Lymph # [place] # Lymph # (Auto) [place] # (Auto) Eos # (Auto) Seg Neutrophils % Seg Neuts % (Manual) Lymphocytes % (Manual) Seg Neutrophils # Seg Neutrophils # Man Lymphocytes # (Manual) Monocytes % (Manual) Eosinophils % (Manual) Monocytes # (Manual) Eosinophils # (Manual) D-Dimer Heparin Anti-Xa Level ABG pH POC ABG pCO2 POC ABG pO2 ABG pO2 ABG HCO3 ABG O2 Saturation ABG Base Excess ABG Hemoglobin ABG Oxyhemoglobin VBG pH ABG Sodium ABG Potassium ABG Glucose Oxyhemoglobin Sodium 135 L Potassium 5.3 H Chloride Carbon Dioxide 21 L BUN 103 H Creatinine 2.6 H Glucose 113 H POC Glucose 131 H 151 H Lactic Acid Calcium 8.1 L Ferritin AST Alkaline Phosphatase Magnesium Lactate Dehydrogenase Total Creatine Kinase CK-MB (CK-2) C-Reactive Protein Total Protein Albumin Troponin T HDL Cholesterol Arterial Blood Glucose Urine WBC (Auto) Urine Creatinine Urine Total Protein Phenytoin Coronavirus (PCR) Crossmatch 07/27/20 07/28/20 07/28/20 23:29 04:30 04:30 WBC RBC 2.50 L Hgb 7.3 L Hct 22.2 L MCHC RDW 17.3 H Lymph % (Auto) 8.7 L [place] % (Auto) 8.3 H Eos % (Auto) Lymph # [place] # Lymph # (Auto) 0.7 L [place] # (Auto) Eos # (Auto) Seg Neutrophils % 79.1 H Seg Neuts % (Manual) Lymphocytes % (Manual) Seg Neutrophils # Seg Neutrophils # Man Lymphocytes # (Manual) Monocytes % (Manual) Eosinophils % (Manual) Monocytes # (Manual) Eosinophils # (Manual) D-Dimer Heparin Anti-Xa Level ABG pH POC ABG pCO2 POC ABG pO2 ABG pO2 ABG HCO3 ABG O2 Saturation ABG Base Excess ABG Hemoglobin ABG Oxyhemoglobin VBG pH ABG Sodium ABG Potassium ABG Glucose Oxyhemoglobin Sodium 135 L Potassium 5.2 H Chloride 96.8 L Carbon Dioxide 20 L BUN 107 H Creatinine 2.9 H Glucose POC Glucose 124 H Lactic Acid Calcium 8.2 L Ferritin AST Alkaline Phosphatase Magnesium 2.70 H Lactate Dehydrogenase Total Creatine Kinase CK-MB (CK-2) C-Reactive Protein Total Protein Albumin Troponin T HDL Cholesterol Arterial Blood Glucose Urine WBC (Auto) Urine Creatinine Urine Total Protein Phenytoin Coronavirus (PCR) Crossmatch 07/28/20 07/29/20 07/29/20 17:35 00:11 06:45 WBC RBC Hgb Hct MCHC RDW Lymph % (Auto) [place] % (Auto) Eos % (Auto) Lymph # [place] # Lymph # (Auto) [place] # (Auto) Eos # (Auto) Seg Neutrophils % Seg Neuts % (Manual) Lymphocytes % (Manual) Seg Neutrophils # Seg Neutrophils # Man Lymphocytes # (Manual) Monocytes % (Manual) Eosinophils % (Manual) Monocytes # (Manual) Eosinophils # (Manual) D-Dimer Heparin Anti-Xa Level ABG pH POC ABG pCO2 POC ABG pO2 ABG pO2 ABG HCO3 ABG O2 Saturation ABG Base Excess ABG Hemoglobin ABG Oxyhemoglobin VBG pH ABG Sodium ABG Potassium ABG Glucose Oxyhemoglobin Sodium Potassium Chloride Carbon Dioxide BUN Creatinine Glucose POC Glucose 146 H 143 H 179 H Lactic Acid Calcium Ferritin AST Alkaline Phosphatase Magnesium Lactate Dehydrogenase Total Creatine Kinase CK-MB (CK-2) C-Reactive Protein Total Protein Albumin Troponin T HDL Cholesterol Arterial Blood Glucose Urine WBC (Auto) Urine Creatinine Urine Total Protein Phenytoin Coronavirus (PCR) Crossmatch 07/29/20 07/29/20 07/29/20 11:54 13:01 13:01 WBC RBC 2.40 L Hgb 7.1 L Hct 20.9 L MCHC RDW 17.5 H Lymph % (Auto) [place] % (Auto) Eos % (Auto) Lymph # [place] # Lymph # (Auto) [place] # (Auto) Eos # (Auto) Seg Neutrophils % Seg Neuts % (Manual) 86.0 H Lymphocytes % (Manual) 6.0 L Seg Neutrophils # Seg Neutrophils # Man 8.9 H Lymphocytes # (Manual) 0.6 L Monocytes % (Manual) 8.0 H Eosinophils % (Manual) Monocytes # (Manual) Eosinophils # (Manual) D-Dimer Heparin Anti-Xa Level ABG pH POC ABG pCO2 POC ABG pO2 ABG pO2 ABG HCO3 ABG O2 Saturation ABG Base Excess ABG Hemoglobin ABG Oxyhemoglobin VBG pH ABG Sodium ABG Potassium ABG Glucose Oxyhemoglobin Sodium 129 L Potassium Chloride 92.9 L Carbon Dioxide BUN 112 H Creatinine 3.0 H Glucose 142 H POC Glucose 170 H Lactic Acid Calcium 7.9 L Ferritin AST Alkaline Phosphatase Magnesium Lactate Dehydrogenase Total Creatine Kinase CK-MB (CK-2) C-Reactive Protein Total Protein Albumin Troponin T HDL Cholesterol Arterial Blood Glucose Urine WBC (Auto) Urine Creatinine Urine Total Protein Phenytoin Coronavirus (PCR) Crossmatch 07/29/20 07/30/20 07/30/20 22:45 05:01 11:45 WBC RBC Hgb Hct MCHC RDW Lymph % (Auto) [place] % (Auto) Eos % (Auto) Lymph # [place] # Lymph # (Auto) [place] # (Auto) Eos # (Auto) Seg Neutrophils % Seg Neuts % (Manual) Lymphocytes % (Manual) Seg Neutrophils # Seg Neutrophils # Man Lymphocytes # (Manual) Monocytes % (Manual) Eosinophils % (Manual) Monocytes # (Manual) Eosinophils # (Manual) D-Dimer Heparin Anti-Xa Level ABG pH POC ABG pCO2 POC ABG pO2 ABG pO2 ABG HCO3 ABG O2 Saturation ABG Base Excess ABG Hemoglobin ABG Oxyhemoglobin VBG pH ABG Sodium ABG Potassium ABG Glucose Oxyhemoglobin Sodium Potassium Chloride Carbon Dioxide BUN Creatinine Glucose POC Glucose 129 H 150 H 130 H Lactic Acid Calcium Ferritin AST Alkaline Phosphatase Magnesium Lactate Dehydrogenase Total Creatine Kinase CK-MB (CK-2) C-Reactive Protein Total Protein Albumin Troponin T HDL Cholesterol Arterial Blood Glucose Urine WBC (Auto) Urine Creatinine Urine Total Protein Phenytoin Coronavirus (PCR) Crossmatch 07/30/20 07/30/20 07/30/20 17:54 21:26 23:58 WBC RBC Hgb Hct MCHC RDW Lymph % (Auto) [place] % (Auto) Eos % (Auto) Lymph # [place] # Lymph # (Auto) [place] # (Auto) Eos # (Auto) Seg Neutrophils % Seg Neuts % (Manual) Lymphocytes % (Manual) Seg Neutrophils # Seg Neutrophils # Man Lymphocytes # (Manual) Monocytes % (Manual) Eosinophils % (Manual) Monocytes # (Manual) Eosinophils # (Manual) D-Dimer Heparin Anti-Xa Level ABG pH POC ABG pCO2 POC ABG pO2 ABG pO2 ABG HCO3 ABG O2 Saturation ABG Base Excess ABG Hemoglobin ABG Oxyhemoglobin VBG pH ABG Sodium ABG Potassium ABG Glucose Oxyhemoglobin Sodium Potassium Chloride Carbon Dioxide BUN Creatinine Glucose POC Glucose 143 H 124 H 142 H Lactic Acid Calcium Ferritin AST Alkaline Phosphatase Magnesium Lactate Dehydrogenase Total Creatine Kinase CK-MB (CK-2) C-Reactive Protein Total Protein Albumin Troponin T HDL Cholesterol Arterial Blood Glucose Urine WBC (Auto) Urine Creatinine Urine Total Protein Phenytoin Coronavirus (PCR) Crossmatch 07/31/20 07/31/20 07/31/20 05:43 11:35 18:07 WBC RBC Hgb Hct MCHC RDW Lymph % (Auto) [place] % (Auto) Eos % (Auto) Lymph # [place] # Lymph # (Auto) [place] # (Auto) Eos # (Auto) Seg Neutrophils % Seg Neuts % (Manual) Lymphocytes % (Manual) Seg Neutrophils # Seg Neutrophils # Man Lymphocytes # (Manual) Monocytes % (Manual) Eosinophils % (Manual) Monocytes # (Manual) Eosinophils # (Manual) D-Dimer Heparin Anti-Xa Level ABG pH POC ABG pCO2 POC ABG pO2 ABG pO2 ABG HCO3 ABG O2 Saturation ABG Base Excess ABG Hemoglobin ABG Oxyhemoglobin VBG pH ABG Sodium ABG Potassium ABG Glucose Oxyhemoglobin Sodium Potassium Chloride Carbon Dioxide BUN Creatinine Glucose POC Glucose 152 H 179 H 129 H Lactic Acid Calcium Ferritin AST Alkaline Phosphatase Magnesium Lactate Dehydrogenase Total Creatine Kinase CK-MB (CK-2) C-Reactive Protein Total Protein Albumin Troponin T HDL Cholesterol Arterial Blood Glucose Urine WBC (Auto) Urine Creatinine Urine Total Protein Phenytoin Coronavirus (PCR) Crossmatch 07/31/20 07/31/20 08/01/20 21:30 22:12 00:25 WBC RBC Hgb Hct MCHC RDW Lymph % (Auto) [place] % (Auto) Eos % (Auto) Lymph # [place] # Lymph # (Auto) [place] # (Auto) Eos # (Auto) Seg Neutrophils % Seg Neuts % (Manual) Lymphocytes % (Manual) Seg Neutrophils # Seg Neutrophils # Man Lymphocytes # (Manual) Monocytes % (Manual) Eosinophils % (Manual) Monocytes # (Manual) Eosinophils # (Manual) D-Dimer Heparin Anti-Xa Level ABG pH POC ABG pCO2 POC ABG pO2 ABG pO2 ABG HCO3 ABG O2 Saturation ABG Base Excess ABG Hemoglobin ABG Oxyhemoglobin VBG pH ABG Sodium ABG Potassium ABG Glucose Oxyhemoglobin Sodium Potassium Chloride Carbon Dioxide BUN Creatinine Glucose POC Glucose 143 H 122 H 134 H Lactic Acid Calcium Ferritin AST Alkaline Phosphatase Magnesium Lactate Dehydrogenase Total Creatine Kinase CK-MB (CK-2) C-Reactive Protein Total Protein Albumin Troponin T HDL Cholesterol Arterial Blood Glucose Urine WBC (Auto) Urine Creatinine Urine Total Protein Phenytoin Coronavirus (PCR) Crossmatch 08/01/20 08/01/20 08/01/20 04:43 05:41 12:23 WBC RBC Hgb Hct MCHC RDW Lymph % (Auto) [place] % (Auto) Eos % (Auto) Lymph # [place] # Lymph # (Auto) [place] # (Auto) Eos # (Auto) Seg Neutrophils % Seg Neuts % (Manual) Lymphocytes % (Manual) Seg Neutrophils # Seg Neutrophils # Man Lymphocytes # (Manual) Monocytes % (Manual) Eosinophils % (Manual) Monocytes # (Manual) Eosinophils # (Manual) D-Dimer Heparin Anti-Xa Level ABG pH POC ABG pCO2 POC ABG pO2 ABG pO2 ABG HCO3 ABG O2 Saturation ABG Base Excess ABG Hemoglobin ABG Oxyhemoglobin VBG pH ABG Sodium ABG Potassium ABG Glucose Oxyhemoglobin Sodium 128 L Potassium 5.8 H Chloride 90.5 L Carbon Dioxide 19 L BUN 122 H Creatinine 3.4 H Glucose 124 H POC Glucose 130 H 128 H Lactic Acid Calcium 8.0 L Ferritin AST Alkaline Phosphatase Magnesium Lactate Dehydrogenase Total Creatine Kinase CK-MB (CK-2) C-Reactive Protein Total Protein Albumin Troponin T HDL Cholesterol Arterial Blood Glucose Urine WBC (Auto) Urine Creatinine Urine Total Protein Phenytoin Coronavirus (PCR) Crossmatch 08/01/20 08/02/20 08/02/20 17:28 00:06 05:32 WBC RBC Hgb Hct MCHC RDW Lymph % (Auto) [place] % (Auto) Eos % (Auto) Lymph # [place] # Lymph # (Auto) [place] # (Auto) Eos # (Auto) Seg Neutrophils % Seg Neuts % (Manual) Lymphocytes % (Manual) Seg Neutrophils # Seg Neutrophils # Man Lymphocytes # (Manual) Monocytes % (Manual) Eosinophils % (Manual) Monocytes # (Manual) Eosinophils # (Manual) D-Dimer Heparin Anti-Xa Level ABG pH POC ABG pCO2 POC ABG pO2 ABG pO2 ABG HCO3 ABG O2 Saturation ABG Base Excess ABG Hemoglobin ABG Oxyhemoglobin VBG pH ABG Sodium ABG Potassium ABG Glucose Oxyhemoglobin Sodium Potassium Chloride Carbon Dioxide BUN Creatinine Glucose POC Glucose 121 H 128 H 177 H Lactic Acid Calcium Ferritin AST Alkaline Phosphatase Magnesium Lactate Dehydrogenase Total Creatine Kinase CK-MB (CK-2) C-Reactive Protein Total Protein Albumin Troponin T HDL Cholesterol Arterial Blood Glucose Urine WBC (Auto) Urine Creatinine Urine Total Protein Phenytoin Coronavirus (PCR) Crossmatch 08/02/20 08/02/20 08/03/20 11:25 12:34 00:08 WBC RBC Hgb Hct MCHC RDW Lymph % (Auto) [place] % (Auto) Eos % (Auto) Lymph # [place] # Lymph # (Auto) [place] # (Auto) Eos # (Auto) Seg Neutrophils % Seg Neuts % (Manual) Lymphocytes % (Manual) Seg Neutrophils # Seg Neutrophils # Man Lymphocytes # (Manual) Monocytes % (Manual) Eosinophils % (Manual) Monocytes # (Manual) Eosinophils # (Manual) D-Dimer Heparin Anti-Xa Level ABG pH 7.344 L POC ABG pCO2 POC ABG pO2 ABG pO2 101.1 H ABG HCO3 ABG O2 Saturation ABG Base Excess -4.5 L ABG Hemoglobin 6.6 L ABG Oxyhemoglobin VBG pH ABG Sodium ABG Potassium ABG Glucose Oxyhemoglobin Sodium Potassium Chloride Carbon Dioxide BUN Creatinine Glucose POC Glucose 196 H 141 H Lactic Acid Calcium Ferritin AST Alkaline Phosphatase Magnesium Lactate Dehydrogenase Total Creatine Kinase CK-MB (CK-2) C-Reactive Protein Total Protein Albumin Troponin T HDL Cholesterol Arterial Blood Glucose Urine WBC (Auto) Urine Creatinine Urine Total Protein Phenytoin Coronavirus (PCR) Crossmatch 08/03/20 08/03/20 08/03/20 04:38 04:38 04:38 WBC 14.3 H RBC 2.42 L Hgb 7.0 L Hct 21.5 L MCHC RDW 18.1 H Lymph % (Auto) [place] % (Auto) Eos % (Auto) Lymph # [place] # Lymph # (Auto) [place] # (Auto) Eos # (Auto) Seg Neutrophils % Seg Neuts % (Manual) Lymphocytes % (Manual) Seg Neutrophils # Seg Neutrophils # Man Lymphocytes # (Manual) Monocytes % (Manual) Eosinophils % (Manual) Monocytes # (Manual) Eosinophils # (Manual) D-Dimer Heparin Anti-Xa Level ABG pH POC ABG pCO2 POC ABG pO2 ABG pO2 ABG HCO3 ABG O2 Saturation ABG Base Excess ABG Hemoglobin ABG Oxyhemoglobin VBG pH ABG Sodium ABG Potassium ABG Glucose Oxyhemoglobin Sodium 130 L Potassium Chloride 90.1 L Carbon Dioxide 20 L BUN 105 H Creatinine 3.1 H Glucose 115 H POC Glucose Lactic Acid 0.40 L Calcium 8.2 L Ferritin AST Alkaline Phosphatase Magnesium Lactate Dehydrogenase Total Creatine Kinase CK-MB (CK-2) C-Reactive Protein Total Protein Albumin Troponin T HDL Cholesterol Arterial Blood Glucose Urine WBC (Auto) Urine Creatinine Urine Total Protein Phenytoin Coronavirus (PCR) Crossmatch 08/03/20 08/03/20 08/03/20 05:33 12:04 17:51 WBC RBC Hgb Hct MCHC RDW Lymph % (Auto) [place] % (Auto) Eos % (Auto) Lymph # [place] # Lymph # (Auto) [place] # (Auto) Eos # (Auto) Seg Neutrophils % Seg Neuts % (Manual) Lymphocytes % (Manual) Seg Neutrophils # Seg Neutrophils # Man Lymphocytes # (Manual) Monocytes % (Manual) Eosinophils % (Manual) Monocytes # (Manual) Eosinophils # (Manual) D-Dimer Heparin Anti-Xa Level ABG pH POC ABG pCO2 POC ABG pO2 ABG pO2 ABG HCO3 ABG O2 Saturation ABG Base Excess ABG Hemoglobin ABG Oxyhemoglobin VBG pH ABG Sodium ABG Potassium ABG Glucose Oxyhemoglobin Sodium Potassium Chloride Carbon Dioxide BUN Creatinine Glucose POC Glucose 117 H 115 H 123 H Lactic Acid Calcium Ferritin AST Alkaline Phosphatase Magnesium Lactate Dehydrogenase Total Creatine Kinase CK-MB (CK-2) C-Reactive Protein Total Protein Albumin Troponin T HDL Cholesterol Arterial Blood Glucose Urine WBC (Auto) Urine Creatinine Urine Total Protein Phenytoin Coronavirus (PCR) Crossmatch 08/03/20 08/04/20 08/04/20 23:25 01:41 05:34 WBC RBC 2.20 L Hgb 6.5 L Hct 19.5 L* MCHC RDW 18.5 H Lymph % (Auto) 9.2 L [place] % (Auto) 9.8 H Eos % (Auto) Lymph # [place] # Lymph # (Auto) 0.8 L [place] # (Auto) Eos # (Auto) Seg Neutrophils % 77.7 H Seg Neuts % (Manual) Lymphocytes % (Manual) Seg Neutrophils # Seg Neutrophils # Man Lymphocytes # (Manual) Monocytes % (Manual) Eosinophils % (Manual) Monocytes # (Manual) Eosinophils # (Manual) D-Dimer Heparin Anti-Xa Level ABG pH POC ABG pCO2 POC ABG pO2 ABG pO2 ABG HCO3 ABG O2 Saturation ABG Base Excess ABG Hemoglobin ABG Oxyhemoglobin VBG pH ABG Sodium ABG Potassium ABG Glucose Oxyhemoglobin Sodium Potassium Chloride Carbon Dioxide BUN Creatinine Glucose POC Glucose 122 H 112 H Lactic Acid Calcium Ferritin AST Alkaline Phosphatase Magnesium Lactate Dehydrogenase Total Creatine Kinase CK-MB (CK-2) C-Reactive Protein Total Protein Albumin Troponin T HDL Cholesterol Arterial Blood Glucose Urine WBC (Auto) Urine Creatinine Urine Total Protein Phenytoin Coronavirus (PCR) Crossmatch 08/04/20 08/04/20 08/05/20 12:19 17:42 00:25 WBC RBC Hgb Hct MCHC RDW Lymph % (Auto) [place] % (Auto) Eos % (Auto) Lymph # [place] # Lymph # (Auto) [place] # (Auto) Eos # (Auto) Seg Neutrophils % Seg Neuts % (Manual) Lymphocytes % (Manual) Seg Neutrophils # Seg Neutrophils # Man Lymphocytes # (Manual) Monocytes % (Manual) Eosinophils % (Manual) Monocytes # (Manual) Eosinophils # (Manual) D-Dimer Heparin Anti-Xa Level ABG pH POC ABG pCO2 POC ABG pO2 ABG pO2 ABG HCO3 ABG O2 Saturation ABG Base Excess ABG Hemoglobin ABG Oxyhemoglobin VBG pH ABG Sodium ABG Potassium ABG Glucose Oxyhemoglobin Sodium Potassium Chloride Carbon Dioxide BUN Creatinine Glucose POC Glucose 108 H 113 H 119 H Lactic Acid Calcium Ferritin AST Alkaline Phosphatase Magnesium Lactate Dehydrogenase Total Creatine Kinase CK-MB (CK-2) C-Reactive Protein Total Protein Albumin Troponin T HDL Cholesterol Arterial Blood Glucose Urine WBC (Auto) Urine Creatinine Urine Total Protein Phenytoin Coronavirus (PCR) Crossmatch 08/05/20 08/05/20 08/05/20 05:24 05:35 05:35 WBC RBC 2.13 L Hgb 6.2 L Hct 18.9 L* MCHC RDW 18.7 H Lymph % (Auto) 10.0 L [place] % (Auto) 8.5 H Eos % (Auto) Lymph # [place] # Lymph # (Auto) 0.8 L [place] # (Auto) Eos # (Auto) Seg Neutrophils % 78.1 H Seg Neuts % (Manual) Lymphocytes % (Manual) Seg Neutrophils # Seg Neutrophils # Man Lymphocytes # (Manual) Monocytes % (Manual) Eosinophils % (Manual) Monocytes # (Manual) Eosinophils # (Manual) D-Dimer Heparin Anti-Xa Level ABG pH POC ABG pCO2 POC ABG pO2 ABG pO2 ABG HCO3 ABG O2 Saturation ABG Base Excess ABG Hemoglobin ABG Oxyhemoglobin VBG pH ABG Sodium ABG Potassium ABG Glucose Oxyhemoglobin Sodium 135 L Potassium Chloride 96.3 L Carbon Dioxide BUN 89 H Creatinine 2.8 H Glucose 116 H POC Glucose 138 H Lactic Acid Calcium 7.5 L Ferritin AST 53 H Alkaline Phosphatase 501 H Magnesium Lactate Dehydrogenase Total Creatine Kinase CK-MB (CK-2) C-Reactive Protein Total Protein 6.1 L Albumin 2.2 L Troponin T HDL Cholesterol Arterial Blood Glucose Urine WBC (Auto) Urine Creatinine Urine Total Protein Phenytoin Coronavirus (PCR) Crossmatch 08/05/20 08/05/20 08/05/20 09:15 12:17 18:00 WBC RBC Hgb Hct MCHC RDW Lymph % (Auto) [place] % (Auto) Eos % (Auto) Lymph # [place] # Lymph # (Auto) [place] # (Auto) Eos # (Auto) Seg Neutrophils % Seg Neuts % (Manual) Lymphocytes % (Manual) Seg Neutrophils # Seg Neutrophils # Man Lymphocytes # (Manual) Monocytes % (Manual) Eosinophils % (Manual) Monocytes # (Manual) Eosinophils # (Manual) D-Dimer Heparin Anti-Xa Level ABG pH POC ABG pCO2 POC ABG pO2 ABG pO2 ABG HCO3 ABG O2 Saturation ABG Base Excess ABG Hemoglobin ABG Oxyhemoglobin VBG pH ABG Sodium ABG Potassium ABG Glucose Oxyhemoglobin Sodium Potassium Chloride Carbon Dioxide BUN Creatinine Glucose POC Glucose 126 H 143 H Lactic Acid Calcium Ferritin AST Alkaline Phosphatase Magnesium Lactate Dehydrogenase Total Creatine Kinase CK-MB (CK-2) C-Reactive Protein Total Protein Albumin Troponin T HDL Cholesterol Arterial Blood Glucose Urine WBC (Auto) Urine Creatinine Urine Total Protein Phenytoin Coronavirus (PCR) Crossmatch See Detail 08/06/20 08/06/20 08/07/20 00:50 04:30 04:40 WBC RBC 2.43 L 2.48 L Hgb 7.2 L 7.4 L Hct 21.7 L 22.1 L MCHC RDW 18.1 H 18.1 H Lymph % (Auto) 9.9 L 11.7 L [place] % (Auto) 10.5 H 8.6 H Eos % (Auto) Lymph # [place] # Lymph # (Auto) 0.7 L 0.9 L [place] # (Auto) Eos # (Auto) Seg Neutrophils % 75.1 H 76.1 H Seg Neuts % (Manual) Lymphocytes % (Manual) Seg Neutrophils # Seg Neutrophils # Man Lymphocytes # (Manual) Monocytes % (Manual) Eosinophils % (Manual) Monocytes # (Manual) Eosinophils # (Manual) D-Dimer Heparin Anti-Xa Level ABG pH POC ABG pCO2 POC ABG pO2 ABG pO2 ABG HCO3 ABG O2 Saturation ABG Base Excess ABG Hemoglobin ABG Oxyhemoglobin VBG pH ABG Sodium ABG Potassium ABG Glucose Oxyhemoglobin Sodium Potassium Chloride Carbon Dioxide BUN Creatinine Glucose POC Glucose 117 H Lactic Acid Calcium Ferritin AST Alkaline Phosphatase Magnesium Lactate Dehydrogenase Total Creatine Kinase CK-MB (CK-2) C-Reactive Protein Total Protein Albumin Troponin T HDL Cholesterol Arterial Blood Glucose Urine WBC (Auto) Urine Creatinine Urine Total Protein Phenytoin Coronavirus (PCR) Crossmatch 08/07/20 08/07/20 08/08/20 05:44 06:00 00:03 WBC RBC Hgb Hct MCHC RDW Lymph % (Auto) [place] % (Auto) Eos % (Auto) Lymph # [place] # Lymph # (Auto) [place] # (Auto) Eos # (Auto) Seg Neutrophils % Seg Neuts % (Manual) Lymphocytes % (Manual) Seg Neutrophils # Seg Neutrophils # Man Lymphocytes # (Manual) Monocytes % (Manual) Eosinophils % (Manual) Monocytes # (Manual) Eosinophils # (Manual) D-Dimer Heparin Anti-Xa Level ABG pH POC ABG pCO2 POC ABG pO2 ABG pO2 ABG HCO3 ABG O2 Saturation ABG Base Excess ABG Hemoglobin ABG Oxyhemoglobin VBG pH ABG Sodium ABG Potassium ABG Glucose Oxyhemoglobin Sodium 132 L Potassium 3.3 L Chloride 92.8 L Carbon Dioxide BUN 64 H Creatinine 2.4 H Glucose POC Glucose 58 L 125 H Lactic Acid Calcium 7.0 L Ferritin AST Alkaline Phosphatase Magnesium Lactate Dehydrogenase Total Creatine Kinase CK-MB (CK-2) C-Reactive Protein Total Protein Albumin Troponin T HDL Cholesterol Arterial Blood Glucose Urine WBC (Auto) Urine Creatinine Urine Total Protein Phenytoin Coronavirus (PCR) Crossmatch 08/08/20 08/08/20 08/08/20 12:58 15:00 15:00 WBC RBC 2.36 L Hgb 7.1 L Hct 21.4 L MCHC RDW 18.3 H Lymph % (Auto) [place] % (Auto) Eos % (Auto) Lymph # [place] # Lymph # (Auto) [place] # (Auto) Eos # (Auto) Seg Neutrophils % Seg Neuts % (Manual) Lymphocytes % (Manual) Seg Neutrophils # Seg Neutrophils # Man Lymphocytes # (Manual) Monocytes % (Manual) Eosinophils % (Manual) Monocytes # (Manual) Eosinophils # (Manual) D-Dimer Heparin Anti-Xa Level ABG pH POC ABG pCO2 POC ABG pO2 ABG pO2 ABG HCO3 ABG O2 Saturation ABG Base Excess ABG Hemoglobin ABG Oxyhemoglobin VBG pH ABG Sodium ABG Potassium ABG Glucose Oxyhemoglobin Sodium Potassium Chloride Carbon Dioxide BUN Creatinine Glucose POC Glucose 134 H Lactic Acid Calcium Ferritin AST Alkaline Phosphatase Magnesium Lactate Dehydrogenase Total Creatine Kinase CK-MB (CK-2) C-Reactive Protein Total Protein Albumin Troponin T HDL Cholesterol Arterial Blood Glucose Urine WBC (Auto) Urine Creatinine Urine Total Protein Phenytoin 4.7 L Coronavirus (PCR) Crossmatch 08/08/20 08/08/20 08/09/20 15:00 17:39 00:00 WBC RBC Hgb Hct MCHC RDW Lymph % (Auto) [place] % (Auto) Eos % (Auto) Lymph # [place] # Lymph # (Auto) [place] # (Auto) Eos # (Auto) Seg Neutrophils % Seg Neuts % (Manual) Lymphocytes % (Manual) Seg Neutrophils # Seg Neutrophils # Man Lymphocytes # (Manual) Monocytes % (Manual) Eosinophils % (Manual) Monocytes # (Manual) Eosinophils # (Manual) D-Dimer Heparin Anti-Xa Level ABG pH POC ABG pCO2 POC ABG pO2 ABG pO2 ABG HCO3 ABG O2 Saturation ABG Base Excess ABG Hemoglobin ABG Oxyhemoglobin VBG pH ABG Sodium ABG Potassium ABG Glucose Oxyhemoglobin Sodium 130 L Potassium 3.1 L Chloride 91.5 L Carbon Dioxide BUN 52 H Creatinine 2.3 H Glucose 135 H POC Glucose 131 H 129 H Lactic Acid Calcium 7.3 L Ferritin AST Alkaline Phosphatase Magnesium Lactate Dehydrogenase Total Creatine Kinase CK-MB (CK-2) C-Reactive Protein Total Protein Albumin Troponin T HDL Cholesterol Arterial Blood Glucose Urine WBC (Auto) Urine Creatinine Urine Total Protein Phenytoin Coronavirus (PCR) Crossmatch 08/09/20 08/09/20 08/11/20 05:05 07:49 03:55 WBC RBC 2.22 L Hgb 6.9 L Hct 20.1 L MCHC RDW 18.3 H Lymph % (Auto) 11.2 L [place] % (Auto) 8.8 H Eos % (Auto) Lymph # [place] # Lymph # (Auto) 0.8 L [place] # (Auto) Eos # (Auto) Seg Neutrophils % 76.3 H Seg Neuts % (Manual) Lymphocytes % (Manual) Seg Neutrophils # Seg Neutrophils # Man Lymphocytes # (Manual) Monocytes % (Manual) Eosinophils % (Manual) Monocytes # (Manual) Eosinophils # (Manual) D-Dimer Heparin Anti-Xa Level ABG pH POC ABG pCO2 POC ABG pO2 ABG pO2 ABG HCO3 ABG O2 Saturation ABG Base Excess ABG Hemoglobin ABG Oxyhemoglobin VBG pH ABG Sodium ABG Potassium ABG Glucose Oxyhemoglobin Sodium 130 L Potassium Chloride 90.1 L Carbon Dioxide BUN 56 H Creatinine 2.4 H Glucose 104 H POC Glucose 111 H Lactic Acid Calcium 7.4 L Ferritin AST Alkaline Phosphatase Magnesium Lactate Dehydrogenase Total Creatine Kinase CK-MB (CK-2) C-Reactive Protein Total Protein Albumin Troponin T HDL Cholesterol Arterial Blood Glucose Urine WBC (Auto) Urine Creatinine Urine Total Protein Phenytoin Coronavirus (PCR) Crossmatch 08/11/20 08/11/20 08/11/20 03:55 05:39 23:46 WBC RBC Hgb Hct MCHC RDW Lymph % (Auto) [place] % (Auto) Eos % (Auto) Lymph # [place] # Lymph # (Auto) [place] # (Auto) Eos # (Auto) Seg Neutrophils % Seg Neuts % (Manual) Lymphocytes % (Manual) Seg Neutrophils # Seg Neutrophils # Man Lymphocytes # (Manual) Monocytes % (Manual) Eosinophils % (Manual) Monocytes # (Manual) Eosinophils # (Manual) D-Dimer Heparin Anti-Xa Level ABG pH POC ABG pCO2 POC ABG pO2 ABG pO2 ABG HCO3 ABG O2 Saturation ABG Base Excess ABG Hemoglobin ABG Oxyhemoglobin VBG pH ABG Sodium ABG Potassium ABG Glucose Oxyhemoglobin Sodium 135 L Potassium Chloride 94.5 L Carbon Dioxide BUN 48 H Creatinine 2.2 H Glucose 53 L POC Glucose < 40 L 131 H Lactic Acid Calcium 7.5 L Ferritin AST Alkaline Phosphatase Magnesium Lactate Dehydrogenase Total Creatine Kinase CK-MB (CK-2) C-Reactive Protein Total Protein Albumin Troponin T HDL Cholesterol Arterial Blood Glucose Urine WBC (Auto) Urine Creatinine Urine Total Protein Phenytoin Coronavirus (PCR) Crossmatch 08/12/20 08/12/20 08/12/20 05:39 12:15 17:21 WBC RBC Hgb Hct MCHC RDW Lymph % (Auto) [place] % (Auto) Eos % (Auto) Lymph # [place] # Lymph # (Auto) [place] # (Auto) Eos # (Auto) Seg Neutrophils % Seg Neuts % (Manual) Lymphocytes % (Manual) Seg Neutrophils # Seg Neutrophils # Man Lymphocytes # (Manual) Monocytes % (Manual) Eosinophils % (Manual) Monocytes # (Manual) Eosinophils # (Manual) D-Dimer Heparin Anti-Xa Level ABG pH POC ABG pCO2 POC ABG pO2 ABG pO2 ABG HCO3 ABG O2 Saturation ABG Base Excess ABG Hemoglobin ABG Oxyhemoglobin VBG pH ABG Sodium ABG Potassium ABG Glucose Oxyhemoglobin Sodium Potassium Chloride Carbon Dioxide BUN Creatinine Glucose POC Glucose 120 H 129 H 106 H Lactic Acid Calcium Ferritin AST Alkaline Phosphatase Magnesium Lactate Dehydrogenase Total Creatine Kinase CK-MB (CK-2) C-Reactive Protein Total Protein Albumin Troponin T HDL Cholesterol Arterial Blood Glucose Urine WBC (Auto) Urine Creatinine Urine Total Protein Phenytoin Coronavirus (PCR) Crossmatch 08/13/20 08/13/20 08/13/20 00:05 06:00 12:01 WBC RBC Hgb Hct MCHC RDW Lymph % (Auto) [place] % (Auto) Eos % (Auto) Lymph # [place] # Lymph # (Auto) [place] # (Auto) Eos # (Auto) Seg Neutrophils % Seg Neuts % (Manual) Lymphocytes % (Manual) Seg Neutrophils # Seg Neutrophils # Man Lymphocytes # (Manual) Monocytes % (Manual) Eosinophils % (Manual) Monocytes # (Manual) Eosinophils # (Manual) D-Dimer Heparin Anti-Xa Level ABG pH POC ABG pCO2 POC ABG pO2 ABG pO2 ABG HCO3 ABG O2 Saturation ABG Base Excess ABG Hemoglobin ABG Oxyhemoglobin VBG pH ABG Sodium ABG Potassium ABG Glucose Oxyhemoglobin Sodium Potassium Chloride Carbon Dioxide BUN Creatinine Glucose POC Glucose 120 H 114 H 112 H Lactic Acid Calcium Ferritin AST Alkaline Phosphatase Magnesium Lactate Dehydrogenase Total Creatine Kinase CK-MB (CK-2) C-Reactive Protein Total Protein Albumin Troponin T HDL Cholesterol Arterial Blood Glucose Urine WBC (Auto) Urine Creatinine Urine Total Protein Phenytoin Coronavirus (PCR) Crossmatch Chest x-ray: other (none today) Allied health notes reviewed: nursing
--- NOTE | 2020-08-13 15:09 | Progress Note ---
Assessment and Plan - Patient Problems (1) Acute kidney injury (AVANI) with acute tubular necrosis (ATN) Current Visit: Yes Status: Acute Plan to address problem: Improved volume status with HD. Last HD performed on 08/07, stable renal parameters, without acute indication for renal replacement therapy at present. cont volume control with torsemide 100mg po qd. Patient is a poor candidate for [facility] HD, given her overall poor prognosis, anoxic brain injury s/p cardiac arrest. (2) Pneumonia due to COVID-19 virus Current Visit: Yes Status: Acute Plan to address problem: Patient has completed course of Remdesevir. Completed course of steroids. (3) Acute hypoxemic respiratory failure Current Visit: Yes Status: Acute Plan to address problem: Being managed by pulmonary. S/p Extubation 06/12. Back on respirator. Continue management by pulmonary/critical care (4) Cardiac arrest Current Visit: Yes Status: Acute Plan to address problem: s/p ACLS with eventual ROSC (5) Cardiomyopathy Current Visit: No Status: Acute Qualifiers: Cardiomyopathy type: unspecified Qualified Code(s): I42.9 - Cardiomyopathy, unspecified Plan to address problem: Patient has peripheral edema. Has not responded to Bumex infusion. cont HD for volume control (6) Type 2 diabetes mellitus with diabetic chronic kidney disease Current Visit: Yes Status: Acute Plan to address problem: Blood sugar management by primary attending (7) Hyponatremia Current Visit: Yes Status: Acute Plan to address problem: likely hypervolemic nature, improved with HD. cont diuresis with toresemide Subjective Date of service: 08/13/20 Principal diagnosis: AVANI Interval history: Pt remains on vent support. unresponsive. Objective - Exam Narrative Exam: I did not do physical exam at the bedside due to PPE conservation with the current COVID-19 pandemic. - Vital Signs Vital signs: Vital Signs - 12hr 08/13/20 08/13/20 08/13/20 03:31 03:48 04:00 Temperature 98.8 F Pulse Rate 73 73 Pulse Rate [ 73 From Monitor] Respiratory 13 16 Rate Blood Pressure 139/50 O2 Sat by Pulse 98 98 Oximetry 08/13/20 08/13/20 08/13/20 04:01 04:31 05:01 Temperature Pulse Rate 73 72 75 Pulse Rate [ From Monitor] Respiratory 12 14 14 Rate Blood Pressure 145/52 142/58 147/60 O2 Sat by Pulse 99 99 98 Oximetry 08/13/20 08/13/20 08/13/20 05:31 05:50 06:01 Temperature Pulse Rate 73 72 71 Pulse Rate [ From Monitor] Respiratory 15 14 Rate Blood Pressure 137/50 137/50 145/56 O2 Sat by Pulse 99 99 99 Oximetry 08/13/20 08/13/20 08/13/20 06:31 07:01 07:31 Temperature Pulse Rate 70 72 71 Pulse Rate [ From Monitor] Respiratory 12 9 L 17 Rate Blood Pressure 142/57 145/56 145/56 O2 Sat by Pulse 99 98 98 Oximetry 08/13/20 08/13/20 08/13/20 08:00 08:01 08:10 Temperature 99.1 F Pulse Rate 71 71 70 Pulse Rate [ 71 From Monitor] Respiratory 14 14 Rate Blood Pressure 140/52 142/57 O2 Sat by Pulse 99 99 99 Oximetry 08/13/20 08/13/20 08/13/20 08:31 09:01 09:31 Temperature Pulse Rate 72 71 75 Pulse Rate [ From Monitor] Respiratory 14 15 18 Rate Blood Pressure 136/55 144/54 150/55 O2 Sat by Pulse 100 99 99 Oximetry 08/13/20 08/13/20 08/13/20 10:01 10:08 10:31 Temperature Pulse Rate 72 73 70 Pulse Rate [ From Monitor] Respiratory 14 16 Rate Blood Pressure 142/51 142/51 140/48 O2 Sat by Pulse 99 99 Oximetry 08/13/20 08/13/20 08/13/20 11:01 11:24 11:31 Temperature Pulse Rate 71 73 73 Pulse Rate [ From Monitor] Respiratory 16 14 Rate Blood Pressure 137/56 142/51 141/80 O2 Sat by Pulse 100 99 97 Oximetry 08/13/20 08/13/20 08/13/20 12:00 12:01 12:31 Temperature 98.7 F Pulse Rate 72 72 72 Pulse Rate [ 72 From Monitor] Respiratory 13 15 15 Rate Blood Pressure 141/52 138/52 O2 Sat by Pulse 99 100 99 Oximetry - Lab 08/11/20 03:55 08/11/20 03:55 Most recent lab results ABG pH 7.344 pH Units (7.350-7.450) L 08/02/20 11:25 ABG pCO2 39.0 mm Hg 08/02/20 11:25 ABG pO2 101.1 mm Hg (80.0-90.0) H 08/02/20 11:25 ABG HCO3 20.8 mmol/L (20.0-26.0) 08/02/20 11:25 ABG O2 Saturation 97.5 % (95.0-99.0) 08/02/20 11:25 Calcium 7.5 mg/dL (8.4-10.2) L 08/11/20 03:55 Magnesium 2.70 mg/dL (1.7-2.3) H 07/28/20 04:30 Urine Creatinine 33.3 mg/dL (0.1-20.0) H 07/06/20 13:20 Urine Sodium 21 mmol/L 07/06/20 13:20 Urine Total Protein 196 mg/dL (5-11.8) H 06/06/20 04:00 Medications & Allergies - Medications Allergies/Adverse Reactions: Allergies No Known Allergies Allergy (Verified 01/21/20 12:28) Home Medications: Home Medications Medication Instructions Recorded Confirmed Last Taken Type AtorvaSTATin [Lipitor] 20 mg PO QHS 05/12/20 05/29/20 Unknown History lisinopriL [Zestril TAB] 40 mg PO QDAY 05/12/20 05/29/20 Unknown History metFORMIN [Glucophage] 850 mg PO BID 05/12/20 05/29/20 Unknown History Acetaminophen [Acetaminophen TAB] 650 mg PO Q4H PRN tablet 05/13/20 05/29/20 Unknown Rx Dicyclomine [Bentyl] 20 mg PO BID #20 tablet 05/13/20 05/29/20 Unknown Rx Famotidine [Pepcid] 20 mg PO BID #30 tablet 05/13/20 05/29/20 Unknown Rx carvediloL [Coreg] 6.25 mg PO BID #60 05/13/20 05/29/20 Unknown Rx Active Medications: Generic Name Dose Route Start Last Admin Trade Name Freq PRN Reason Stop Dose Admin Acetaminophen 650 mg 06/09/20 10:57 06/29/20 21:18 Tylenol FEEDTUBE 650 mg Q6H PRN Administration Fever >101 Amlodipine Besylate 10 mg 06/02/20 11:00 08/13/20 10:08 Amlodipine PO 10 mg DAILY NELSON Administration Lipase/Protease/Amylase 1 each 05/29/20 13:39 11/02/20 22:[address] 10,500 Unit FEEDTUBE 1 each PRN PRN Administration For Clogged Feeding Tube Epoetin Javon 10,000 unit 07/29/20 11:29 08/10/20 12:08 Procrit IV 10,000 unit SCOTTY PRN Administration hemodialysis Glycopyrrolate 2 mg 06/09/20 14:00 08/13/20 14:50 Glycopyrrolate PO 2 mg TID NELSON Administration Heparin Sodium (Porcine) 5,000 unit 06/30/20 14:00 08/13/20 14:50 Heparin SUB-Q 5,000 unit Q8HR NELSON Administration Heparin Sodium (Porcine) 5,000 unit 07/29/20 11:29 08/02/20 23:15 Heparin IV 5,000 unit SCOTTY PRN Administration hemodialysis Hydralazine HCl 100 mg 07/14/20 14:00 08/13/20 10:09 Apresoline PO Not Given TID [facility] Hydrophilic Ointment 1 applic 05/28/20 13:49 Vaseline Lip Therapy TP Q2HR PRN Dry Lips Norepinephrine 4 mg in 250 mls @ 7.5 mls/hr 07/23/20 20:00 08/05/20 05:21 Levophed Drip 4 Mg/Ns 250 Ml IV 0 mcg/min TITR NELSON 0 mls/hr Titration Protocol 2 MCG/MIN Phenytoin 150 mg/ Sodium 103 mls @ 408 mls/hr 08/03/20 09:00 08/13/20 14:50 Chloride IV 408 mls/hr Q8HR NELSON Administration Sodium Chloride 100 mls @ 999 mls/hr 08/04/20 22:27 Nacl 0.9% IV SCOTTY PRN Hypotension Insulin Glargine 10 units 06/08/20 22:00 08/12/20 21:48 Lantus SUB-Q Not Given QHS [facility] Insulin Human Lispro 0 unit 05/29/20 18:00 08/13/20 12:29 Humalog SUB-Q Not Given Q6H [facility] Protocol Labetalol HCl 20 mg 06/03/20 09:00 07/31/20 12:14 Labetalol IV 20 mg Q4H PRN Administration HYPERTENSION Lansoprazole 30 mg 08/08/20 10:00 08/13/20 10:08 Prevacid Solutab FEEDTUBE 30 mg QDAY NELSON Administration Levetiracetam 1,000 mg 08/08/20 22:00 08/13/20 10:08 Keppra PO 1,000 mg BID NELSON Administration Minoxidil 5 mg 07/21/20 10:00 08/13/20 10:09 Loniten PO 5 mg BID NELSON Administration Multi-Ingred Cream/Lotion/Oil/Oint 1 applic 05/28/20 13:49 Artificial Tears Ophth Oint OU Q4HR PRN Dry Eye(s) Ondansetron HCl 4 mg 06/02/20 09:00 06/09/20 16:48 Zofran IV 4 mg Q8H PRN Administration Nausea And Vomiting Senna 17.6 mg 06/03/20 10:00 08/13/20 10:41 Senokot FEEDTUBE Not Given BID NELSON Simple Syrup 15 ml 05/29/20 13:39 Simple Syrup FEEDTUBE PRN PRN Hypoglycemia Simple Syrup 30 ml 05/29/20 13:39 Simple Syrup FEEDTUBE PRN PRN Hypoglycemia Sodium Bicarbonate 325 mg 05/29/20 13:39 07/07/20 10:36 Sodium Bicarbonate FEEDTUBE 325 mg PRN PRN Administration For Clogged Feeding Tube Sodium Chloride 10 ml 05/28/20 22:00 08/13/20 10:40 Sodium Chloride Flush Syringe 10 Ml IV 10 ml BID NELSON Administration Sodium Chloride 10 ml 05/28/20 19:08 08/11/20 12:42 Sodium Chloride Flush Syringe 10 Ml IV 10 ml PRN PRN Administration LINE FLUSH Torsemide 100 mg 08/13/20 06:00 08/13/20 05:51 Demadex PO 100 mg DAILY@0600 NELSON Administration
[2020-08-13] MEDS: INSULIN GLARGINE 100 UNITS/ML SUB-Q SCH (21:37)
[2020-08-14] MEDS: INSULIN LISPRO 100 UNIT/ML VIAL 3 mL SUB-Q SCH ×5 (00:52→23:25)
[2020-08-14] MEDS: HEPARIN 5,000 UNIT/1 ML VIAL SUB-Q SCH ×3 (05:54→21:03)
[2020-08-14] MEDS: TORSEMIDE 100 MG TAB PO SCH (05:54)
[2020-08-14] MEDS: SODIUM CHLORIDE 0.9% IV SCH ×3 (05:55→23:05)
[2020-08-14] MEDS: PHENYTOIN IV SCH ×3 (05:55→23:05)
[2020-08-14] MEDS: hydrALAZINE 100 MG TAB PO SCH ×3 (09:03→21:05)
[2020-08-14] MEDS: LANSOPRAZOLE 30 MG SOLUTAB FEEDTUBE SCH (09:03)
[2020-08-14] MEDS: GLYCOPYRROLATE 2 MG TAB PO SCH ×3 (09:03→21:04)
[2020-08-14] MEDS: levETIRAcetam 500 MG/5 ML ORAL LIQD PO SCH ×2 (09:04→21:04)
[2020-08-14] MEDS: SENNOSIDES ORAL LIQD 8.8 MG/5 ML ORAL LIQD FEEDTUBE SCH ×2 (09:04→21:04)
[2020-08-14] MEDS: MINOXIDIL 2.5 MG TAB PO SCH ×2 (09:23→21:04)
[2020-08-14] MEDS: amLODIPine 10 MG TAB PO SCH (09:23)
--- NOTE | 2020-08-14 11:15 | Progress Note ---
Assessment and Plan - Patient Problems (1) Acute kidney injury (AVANI) with acute tubular necrosis (ATN) Current Visit: Yes Status: Acute Plan to address problem: Improved volume status with HD. Last HD performed on 08/07, stable renal parameters, without acute indication for renal replacement therapy at present. cont volume control with torsemide 100mg po qd. Patient is a poor candidate for [facility] HD, given her overall poor prognosis, anoxic brain injury s/p cardiac arrest. (2) Pneumonia due to COVID-19 virus Current Visit: Yes Status: Acute Plan to address problem: Patient has completed course of Remdesevir. Completed course of steroids. (3) Acute hypoxemic respiratory failure Current Visit: Yes Status: Acute Plan to address problem: Being managed by pulmonary. S/p Extubation 06/12. Back on respirator. Continue management by pulmonary/critical care (4) Cardiac arrest Current Visit: Yes Status: Acute Plan to address problem: s/p ACLS with eventual ROSC (5) Cardiomyopathy Current Visit: No Status: Acute Qualifiers: Cardiomyopathy type: unspecified Qualified Code(s): I42.9 - Cardiomyopathy, unspecified Plan to address problem: Patient has peripheral edema. Has not responded to Bumex infusion. cont HD for volume control (6) Type 2 diabetes mellitus with diabetic chronic kidney disease Current Visit: Yes Status: Acute Plan to address problem: Blood sugar management by primary attending (7) Hyponatremia Current Visit: Yes Status: Acute Plan to address problem: likely hypervolemic nature, improved with HD. cont diuresis with toresemide Subjective Date of service: 08/14/20 Principal diagnosis: AVANI Interval history: Pt remains on vent support. unresponsive. Objective - Exam Narrative Exam: I did not do physical exam at the bedside due to PPE conservation with the current COVID-19 pandemic. - Vital Signs Vital signs: Vital Signs - 12hr 08/13/20 08/13/20 08/14/20 23:18 23:30 00:00 Temperature 98.3 F Pulse Rate 76 76 75 Pulse Rate [ 70 From Monitor] Respiratory 18 15 11 L Rate Blood Pressure 145/38 145/49 143/57 O2 Sat by Pulse 99 98 98 Oximetry 08/14/20 08/14/20 08/14/20 00:15 00:30 01:00 Temperature Pulse Rate 75 76 82 Pulse Rate [ From Monitor] Respiratory 17 18 Rate Blood Pressure 143/57 142/65 142/65 O2 Sat by Pulse 99 98 96 Oximetry 08/14/20 08/14/20 08/14/20 01:30 02:00 02:30 Temperature Pulse Rate 77 77 79 Pulse Rate [ From Monitor] Respiratory 17 14 16 Rate Blood Pressure 155/60 144/58 144/58 O2 Sat by Pulse 98 98 96 Oximetry 08/14/20 08/14/20 08/14/20 03:00 03:30 04:00 Temperature 98.7 F Pulse Rate 80 80 82 Pulse Rate [ 71 From Monitor] Respiratory 18 15 17 Rate Blood Pressure 142/58 151/63 151/60 O2 Sat by Pulse 97 97 98 Oximetry 08/14/20 08/14/20 08/14/20 04:17 04:30 05:00 Temperature Pulse Rate 84 85 83 Pulse Rate [ From Monitor] Respiratory 16 15 Rate Blood Pressure 151/60 151/58 151/58 O2 Sat by Pulse 97 97 99 Oximetry 08/14/20 08/14/20 08/14/20 05:30 06:00 06:30 Temperature Pulse Rate 82 82 79 Pulse Rate [ From Monitor] Respiratory 15 19 16 Rate Blood Pressure 154/57 156/64 154/57 O2 Sat by Pulse 97 98 99 Oximetry 08/14/20 08/14/20 08/14/20 07:00 07:30 07:35 Temperature Pulse Rate 81 82 80 Pulse Rate [ From Monitor] Respiratory 17 14 Rate Blood Pressure 156/64 157/68 161/61 O2 Sat by Pulse 98 96 99 Oximetry 08/14/20 08/14/20 08/14/20 07:38 08:00 08:30 Temperature 98.2 F Pulse Rate 79 81 79 Pulse Rate [ 79 From Monitor] Respiratory 16 14 16 Rate Blood Pressure 161/61 161/61 161/61 O2 Sat by Pulse 99 98 97 Oximetry 08/14/20 08/14/20 09:00 09:23 Temperature Pulse Rate 81 80 Pulse Rate [ From Monitor] Respiratory 19 Rate Blood Pressure 151/64 151/64 O2 Sat by Pulse 97 Oximetry - Lab 08/11/20 03:55 08/14/20 04:50 Most recent lab results ABG pH 7.344 pH Units (7.350-7.450) L 08/02/20 11:25 ABG pCO2 39.0 mm Hg 08/02/20 11:25 ABG pO2 101.1 mm Hg (80.0-90.0) H 08/02/20 11:25 ABG HCO3 20.8 mmol/L (20.0-26.0) 08/02/20 11:25 ABG O2 Saturation 97.5 % (95.0-99.0) 08/02/20 11:25 Calcium 8.0 mg/dL (8.4-10.2) L 08/14/20 04:50 Magnesium 2.70 mg/dL (1.7-2.3) H 07/28/20 04:30 Urine Creatinine 33.3 mg/dL (0.1-20.0) H 07/06/20 13:20 Urine Sodium 21 mmol/L 07/06/20 13:20 Urine Total Protein 196 mg/dL (5-11.8) H 06/06/20 04:00 Medications & Allergies - Medications Allergies/Adverse Reactions: Allergies No Known Allergies Allergy (Verified 01/21/20 12:28) Home Medications: Home Medications Medication Instructions Recorded Confirmed Last Taken Type AtorvaSTATin [Lipitor] 20 mg PO QHS 05/12/20 05/29/20 Unknown History lisinopriL [Zestril TAB] 40 mg PO QDAY 05/12/20 05/29/20 Unknown History metFORMIN [Glucophage] 850 mg PO BID 05/12/20 05/29/20 Unknown History Acetaminophen [Acetaminophen TAB] 650 mg PO Q4H PRN tablet 05/13/20 05/29/20 Unknown Rx Dicyclomine [Bentyl] 20 mg PO BID #20 tablet 05/13/20 05/29/20 Unknown Rx Famotidine [Pepcid] 20 mg PO BID #30 tablet 05/13/20 05/29/20 Unknown Rx carvediloL [Coreg] 6.25 mg PO BID #60 05/13/20 05/29/20 Unknown Rx Active Medications: Generic Name Dose Route Start Last Admin Trade Name Freq PRN Reason Stop Dose Admin Acetaminophen 650 mg 06/09/20 10:57 06/29/20 21:18 Tylenol FEEDTUBE 650 mg Q6H PRN Administration Fever >101 Amlodipine Besylate 10 mg 06/02/20 11:00 08/14/20 09:23 Amlodipine PO 10 mg DAILY NELSON Administration Lipase/Protease/Amylase 1 each 05/29/20 13:39 08/10/20 22:[address] 10,500 Unit FEEDTUBE 1 each PRN PRN Administration For Clogged Feeding Tube Epoetin Javon 10,000 unit 07/29/20 11:29 08/10/20 12:08 Procrit IV 10,000 unit SCOTTY PRN Administration hemodialysis Glycopyrrolate 2 mg 06/09/20 14:00 08/14/20 09:03 Glycopyrrolate PO 2 mg TID NELSON Administration Heparin Sodium (Porcine) 5,000 unit 06/30/20 14:00 08/14/20 05:54 Heparin SUB-Q 5,000 unit Q8HR NELSON Administration Heparin Sodium (Porcine) 5,000 unit 07/29/20 11:29 08/02/20 23:15 Heparin IV 5,000 unit SCOTTY PRN Administration hemodialysis Hydralazine HCl 100 mg 07/14/20 14:00 08/14/20 09:03 Apresoline PO 100 mg TID NELSON Administration Hydrophilic Ointment 1 applic 05/28/20 13:49 Vaseline Lip Therapy TP Q2HR PRN Dry Lips Norepinephrine 4 mg in 250 mls @ 7.5 mls/hr 07/23/20 20:00 08/05/20 05:21 Levophed Drip 4 Mg/Ns 250 Ml IV 0 mcg/min TITR NELSON 0 mls/hr Titration Protocol 2 MCG/MIN Phenytoin 150 mg/ Sodium 103 mls @ 408 mls/hr 08/03/20 09:00 08/14/20 05:55 Chloride IV 408 mls/hr Q8HR NELSON Administration Sodium Chloride 100 mls @ 999 mls/hr 08/04/20 22:27 Nacl 0.9% IV SCOTTY PRN Hypotension Insulin Glargine 10 units 06/08/20 22:00 08/13/20 21:37 Lantus SUB-Q 10 units QHS NELSON Administration Insulin Human Lispro 0 unit 05/29/20 18:00 08/14/20 06:02 Humalog SUB-Q Not Given Q6H [facility] Protocol Labetalol HCl 20 mg 06/03/20 09:00 07/31/20 12:14 Labetalol IV 20 mg Q4H PRN Administration HYPERTENSION Lansoprazole 30 mg 08/08/20 10:00 08/14/20 09:03 Prevacid Solutab FEEDTUBE 30 mg QDAY NELSON Administration Levetiracetam 1,000 mg 08/08/20 22:00 08/14/20 09:04 Keppra PO 1,000 mg BID NELSON Administration Minoxidil 5 mg 07/21/20 10:00 08/14/20 09:23 Loniten PO 5 mg BID NELSON Administration Multi-Ingred Cream/Lotion/Oil/Oint 1 applic 05/28/20 13:49 Artificial Tears Ophth Oint OU Q4HR PRN Dry Eye(s) Ondansetron HCl 4 mg 06/02/20 09:00 06/09/20 16:48 Zofran IV 4 mg Q8H PRN Administration Nausea And Vomiting Senna 17.6 mg 06/03/20 10:00 08/14/20 09:04 Senokot FEEDTUBE 17.6 mg BID NELSON Administration Simple Syrup 15 ml 05/29/20 13:39 Simple Syrup FEEDTUBE PRN PRN Hypoglycemia Simple Syrup 30 ml 05/29/20 13:39 Simple Syrup FEEDTUBE PRN PRN Hypoglycemia Sodium Bicarbonate 325 mg 05/29/20 13:39 07/07/20 10:36 Sodium Bicarbonate FEEDTUBE 325 mg PRN PRN Administration For Clogged Feeding Tube Sodium Chloride 10 ml 05/28/20 22:00 08/14/20 09:24 Sodium Chloride Flush Syringe 10 Ml IV 10 ml BID NELSON Administration Sodium Chloride 10 ml 05/28/20 19:08 08/11/20 12:42 Sodium Chloride Flush Syringe 10 Ml IV 10 ml PRN PRN Administration LINE FLUSH Torsemide 100 mg 08/13/20 06:00 08/14/20 05:54 Demadex PO 100 mg DAILY@0600 NELSON Administration
--- NOTE | 2020-08-14 16:05 | Progress Note ---
Assessment and Plan Acute hypoxemic respiratory failure on MVS Coronavirus-19 infection. Bilateral pulmonary infiltrates, bilateral pneumonia plus likely element of Pulmonary edema. Bilateral pulmonary edema. Bilateral pleural effusions. History of congestive heart failure. Morbid obesity. History of pulmonary hypertension. History of hypertension. Diabetes. Obesity hypoventilation syndrome. Elevated serum inflammatory markers to include D-dimers and LDH levels. Hyperkalemia at presentation. Metabolic acidosis. Oropharyngeal dysphagia. (AMS remains rate limiting factor to safe extubation; she will need a tracheo stomy if continued care desired) - AM CBC ordered - prn CXR's and ABG's - no clinical seizures - await framilies next steps - not a candidate for safe extubation now; - continue care as below; - continue daily SBT's and attempts to wean - discharge planning ongoing concurrently - continue to rest on AC qhs - prn vasopressors for target MAP > 65 mmHg - prn CXR's and ABG's at this point - repeat EEG next per neurology rec's (repeat CT brain negative) - AED's per neurology ([facility]) - surgery evaluation ongoing for trach +/- PEG (await negative COVID PCR result) - continue Modafinil re: lethargy / somnolence - continue daytime PSV trials as tolerated - Daily SAT and SBT assessment as tolerated - continue to wean supplemental oxygen for target O2 sat's > 92% acutely - VAP bundle addressed - continue lung protective strategies - continue bronchodilators with pulmonary hygiene per RT - wean per pulmonary driven protocols otherwise - continue accuchecks resumed with glycemic control per SSI (While critically ill target blood glucose of 140-180 mg/dL; avoid hypoglycemia) - sedation prn for target RASS 0 to -1 - continue to avoid benzodiazepine's, reduce the possibility of delirium - AB's per ID rec's (following clinically of AB's at this time) - continue enteral nutrition at goal rate as tolerated - AED's per neurology - prn analgesia per CPOT score - Maintenance of sleep-wake cycle, avoid delirium - continue enteral nutritional support at goal rate as tolerated - G.I. & VTE prophylaxis with heparin & famotidine - PT/OT/ROM exercises - continue mobility protocols for pressure ulcer prophylaxis - Monitor hemodynamics closely - continue other care per attending / other consultants - discharge planning ongoing concurrently (LTAC evaluation is appropriate) .... Re-evaluate in am & prn; will continue aggressive care until clear family wants to decelerate CONDITION: CRITICAL PROGNOSIS: GUARDED CODE STATUS: FULL CODE The high probability of a clinically significant, sudden or life-threatening deterioration of the [respiratory, cardiovascular, GI & neurologic] system(s) required my full and direct attention, intervention and personal management. The aggregate critical care time was [34] minutes without overlap. Time includes spent on; [x] Data Review and interpretation [x] Patient assessment and monitoring of vital signs [x] Documentation [x] Medication orders and management Subjective Date of service: 08/14/20 Principal diagnosis: Ac hypoxemic resp failure; COVID-19; pneumonia; CHF; Pulm HTN; OHS; DM II Interval history: Patient is seen today for: Ac hypoxemic resp failure; Coronavirus-19 infection; pneumonia; Pulmonary edema; Bilateral pleural effusions; CHF; Morbid obesity; pulmonary hypertension; OHS; DM II Seen and examined at bedside; 24hour events reviewed; nursing and respiratory care staff consulted; no adverse overnight events reported to me; resting peacefully in bed; remains on MVS; AMS is persistent; no emesis or overt aspiration; tolerating tube feeds Objective Vital Signs - 12hr 08/14/20 08/14/20 08/14/20 04:17 04:30 05:00 Temperature Pulse Rate 84 85 83 Pulse Rate [ From Monitor] Respiratory 16 15 Rate Blood Pressure 151/60 151/58 151/58 O2 Sat by Pulse 97 97 99 Oximetry 08/14/20 08/14/20 08/14/20 05:30 06:00 06:30 Temperature Pulse Rate 82 82 79 Pulse Rate [ From Monitor] Respiratory 15 19 16 Rate Blood Pressure 154/57 156/64 154/57 O2 Sat by Pulse 97 98 99 Oximetry 08/14/20 08/14/20 08/14/20 07:00 07:30 07:35 Temperature Pulse Rate 81 82 80 Pulse Rate [ From Monitor] Respiratory 17 14 Rate Blood Pressure 156/64 157/68 161/61 O2 Sat by Pulse 98 96 99 Oximetry 08/14/20 08/14/20 08/14/20 07:38 08:00 08:30 Temperature 98.2 F Pulse Rate 79 81 79 Pulse Rate [ 79 From Monitor] Respiratory 16 14 16 Rate Blood Pressure 161/61 161/61 161/61 O2 Sat by Pulse 99 98 97 Oximetry 08/14/20 08/14/20 08/14/20 09:00 09:23 09:30 Temperature Pulse Rate 81 80 80 Pulse Rate [ From Monitor] Respiratory 19 20 Rate Blood Pressure 151/64 151/64 153/72 O2 Sat by Pulse 97 98 Oximetry 08/14/20 08/14/20 08/14/20 10:00 10:30 11:00 Temperature Pulse Rate 80 84 90 Pulse Rate [ From Monitor] Respiratory 16 21 24 Rate Blood Pressure 153/72 135/55 135/55 O2 Sat by Pulse 97 97 93 Oximetry 08/14/20 08/14/20 08/14/20 11:26 11:30 12:00 Temperature 98.1 F Pulse Rate 93 H 92 H 89 Pulse Rate [ 84 From Monitor] Respiratory 23 21 18 Rate Blood Pressure 162/95 152/72 152/72 O2 Sat by Pulse 96 96 97 Oximetry 08/14/20 08/14/20 12:30 13:00 Temperature Pulse Rate 86 85 Pulse Rate [ From Monitor] Respiratory 17 18 Rate Blood Pressure 152/72 163/56 O2 Sat by Pulse 99 98 Oximetry Constitutional: appears uncomfortable, other (elderly looking female with mildly increased resp effort at rest) Eyes: non-icteric ENT: oropharynx moist, oropharyngeal exudate pre (mild to moderate), other (ETT 23-24 cm AAYN) Neck: supple, no lymphadenopathy, no JVD Effort: mildly labored Ascultation: Bilateral: diminished breath sounds, rhonchi Percussion: Bilateral: not dull Cardiovascular: regular rate and rhythm, other (S1,S2) Gastrointestinal: normoactive bowel sounds, soft, non-tender, non-distended Integumentary: rash, other (anasarca) Extremities: no cyanosis, pink and warm, pulses normal, no ischemia or petechiae, edema (+ anasarca) Neurologic: unable to assess, other (lethargic to obtunded) Psychiatric: other (unable to assess re: AMS) CBC and BMP: 08/11/20 03:55 08/14/20 04:50 ABG, PT/INR, D-dimer: ABG ABG pH 7.344 pH Units (7.350-7.450) L 08/02/20 11:25 POC ABG pCO2 44.1 mmHg (32.0-48.0) 07/18/20 04:24 ABG pCO2 39.0 mm Hg 08/02/20 11:25 POC ABG pO2 86.8 mmHg (83-108) 07/18/20 04:24 ABG pO2 101.1 mm Hg (80.0-90.0) H 08/02/20 11:25 POC ABG HCO3 25.6 07/18/20 04:24 ABG O2 Saturation 97.5 % (95.0-99.0) 08/02/20 11:25 PT/INR, D-dimer PT 14.2 Sec. (12.2-14.9) 05/29/20 15:10 INR 1.08 (0.87-1.13) 05/29/20 15:10 D-Dimer 2310.15 ng/mlDDU (0-234) H 06/29/20 14:45 Abnormal lab findings: Abnormal Labs 05/28/20 05/28/20 05/28/20 13:29 13:47 13:47 WBC RBC Hgb Hct MCHC RDW 15.3 H Lymph % (Auto) [place] % (Auto) Eos % (Auto) Lymph # [place] # Lymph # (Auto) [place] # (Auto) Eos # (Auto) Seg Neutrophils % Seg Neuts % (Manual) Lymphocytes % (Manual) Seg Neutrophils # Seg Neutrophils # Man Lymphocytes # (Manual) Monocytes % (Manual) Eosinophils % (Manual) Monocytes # (Manual) Eosinophils # (Manual) D-Dimer Heparin Anti-Xa Level ABG pH POC ABG pCO2 POC ABG pO2 ABG pO2 ABG HCO3 ABG O2 Saturation ABG Base Excess ABG Hemoglobin ABG Oxyhemoglobin VBG pH ABG Sodium ABG Potassium ABG Glucose Oxyhemoglobin Sodium Potassium 6.6 H* Chloride 109.2 H Carbon Dioxide 17 L BUN 29 H Creatinine 1.3 H Glucose 265 H POC Glucose 248 H Lactic Acid Calcium 8.1 L Ferritin AST 63 H Alkaline Phosphatase Magnesium Lactate Dehydrogenase Total Creatine Kinase 301 H CK-MB (CK-2) 4.3 H C-Reactive Protein Total Protein 5.4 L Albumin 2.6 L Troponin T HDL Cholesterol Arterial Blood Glucose Urine WBC (Auto) Urine Creatinine Urine Total Protein Phenytoin Coronavirus (PCR) Crossmatch 05/28/20 05/28/20 05/28/20 13:47 13:47 14:46 WBC RBC Hgb Hct MCHC RDW Lymph % (Auto) [place] % (Auto) Eos % (Auto) Lymph # [place] # Lymph # (Auto) [place] # (Auto) Eos # (Auto) Seg Neutrophils % Seg Neuts % (Manual) Lymphocytes % (Manual) Seg Neutrophils # Seg Neutrophils # Man Lymphocytes # (Manual) Monocytes % (Manual) Eosinophils % (Manual) Monocytes # (Manual) Eosinophils # (Manual) D-Dimer Heparin Anti-Xa Level ABG pH POC ABG pCO2 POC ABG pO2 ABG pO2 ABG HCO3 ABG O2 Saturation ABG Base Excess ABG Hemoglobin ABG Oxyhemoglobin VBG pH 7.152 L* ABG Sodium ABG Potassium ABG Glucose Oxyhemoglobin Sodium Potassium 7.2 H* Chloride Carbon Dioxide BUN Creatinine Glucose POC Glucose Lactic Acid 3.40 H* Calcium Ferritin AST Alkaline Phosphatase Magnesium Lactate Dehydrogenase Total Creatine Kinase CK-MB (CK-2) C-Reactive Protein Total Protein Albumin Troponin T HDL Cholesterol Arterial Blood Glucose Urine WBC (Auto) Urine Creatinine Urine Total Protein Phenytoin Coronavirus (PCR) Crossmatch 05/28/20 05/28/20 05/28/20 15:33 15:33 15:51 WBC RBC Hgb Hct MCHC RDW Lymph % (Auto) [place] % (Auto) Eos % (Auto) Lymph # [place] # Lymph # (Auto) [place] # (Auto) Eos # (Auto) Seg Neutrophils % Seg Neuts % (Manual) Lymphocytes % (Manual) Seg Neutrophils # Seg Neutrophils # Man Lymphocytes # (Manual) Monocytes % (Manual) Eosinophils % (Manual) Monocytes # (Manual) Eosinophils # (Manual) D-Dimer 8780.43 H Heparin Anti-Xa Level ABG pH 7.284 L POC ABG pCO2 POC ABG pO2 ABG pO2 273.0 H ABG HCO3 ABG O2 Saturation 99.4 H ABG Base Excess -6.1 L ABG Hemoglobin 17.2 H ABG Oxyhemoglobin VBG pH ABG Sodium ABG Potassium ABG Glucose Oxyhemoglobin Sodium Potassium Chloride Carbon Dioxide BUN Creatinine Glucose 152 H POC Glucose Lactic Acid Calcium Ferritin AST Alkaline Phosphatase Magnesium Lactate Dehydrogenase 365 H Total Creatine Kinase CK-MB (CK-2) C-Reactive Protein Total Protein Albumin Troponin T HDL Cholesterol Arterial Blood Glucose Urine WBC (Auto) Urine Creatinine Urine Total Protein Phenytoin Coronavirus (PCR) Crossmatch 05/28/20 05/28/20 05/28/20 16:30 20:41 23:20 WBC RBC Hgb Hct MCHC RDW Lymph % (Auto) [place] % (Auto) Eos % (Auto) Lymph # [place] # Lymph # (Auto) [place] # (Auto) Eos # (Auto) Seg Neutrophils % Seg Neuts % (Manual) Lymphocytes % (Manual) Seg Neutrophils # Seg Neutrophils # Man Lymphocytes # (Manual) Monocytes % (Manual) Eosinophils % (Manual) Monocytes # (Manual) Eosinophils # (Manual) D-Dimer Heparin Anti-Xa Level ABG pH POC ABG pCO2 POC ABG pO2 ABG pO2 ABG HCO3 ABG O2 Saturation ABG Base Excess ABG Hemoglobin ABG Oxyhemoglobin VBG pH ABG Sodium ABG Potassium ABG Glucose Oxyhemoglobin Sodium Potassium Chloride Carbon Dioxide BUN Creatinine Glucose POC Glucose 225 H 224 H Lactic Acid Calcium Ferritin AST Alkaline Phosphatase Magnesium Lactate Dehydrogenase Total Creatine Kinase CK-MB (CK-2) C-Reactive Protein Total Protein Albumin Troponin T HDL Cholesterol Arterial Blood Glucose Urine WBC (Auto) 17.0 H Urine Creatinine Urine Total Protein Phenytoin Coronavirus (PCR) Crossmatch 05/28/20 05/29/20 05/29/20 Unknown 04:35 04:43 WBC RBC 3.48 L Hgb 9.8 L Hct 29.4 L MCHC RDW 16.0 H Lymph % (Auto) 7.4 L [place] % (Auto) Eos % (Auto) Lymph # 0.7 L [place] # Lymph # (Auto) [place] # (Auto) Eos # (Auto) Seg Neutrophils % 89.1 H Seg Neuts % (Manual) Lymphocytes % (Manual) Seg Neutrophils # 8.1 H Seg Neutrophils # Man Lymphocytes # (Manual) Monocytes % (Manual) Eosinophils % (Manual) Monocytes # (Manual) Eosinophils # (Manual) D-Dimer Heparin Anti-Xa Level ABG pH POC ABG pCO2 POC ABG pO2 ABG pO2 ABG HCO3 19.3 L ABG O2 Saturation ABG Base Excess -4.5 L ABG Hemoglobin 9.7 L ABG Oxyhemoglobin VBG pH ABG Sodium ABG Potassium ABG Glucose Oxyhemoglobin Sodium Potassium Chloride Carbon Dioxide BUN Creatinine Glucose POC Glucose Lactic Acid Calcium Ferritin AST Alkaline Phosphatase Magnesium Lactate Dehydrogenase Total Creatine Kinase CK-MB (CK-2) C-Reactive Protein Total Protein Albumin Troponin T HDL Cholesterol Arterial Blood Glucose Urine WBC (Auto) Urine Creatinine Urine Total Protein Phenytoin Coronavirus (PCR) Positive A Crossmatch 05/29/20 05/29/20 05/29/20 04:43 15:10 17:17 WBC RBC Hgb 9.3 L Hct 28.7 L MCHC RDW Lymph % (Auto) [place] % (Auto) Eos % (Auto) Lymph # [place] # Lymph # (Auto) [place] # (Auto) Eos # (Auto) Seg Neutrophils % Seg Neuts % (Manual) Lymphocytes % (Manual) Seg Neutrophils # Seg Neutrophils # Man Lymphocytes # (Manual) Monocytes % (Manual) Eosinophils % (Manual) Monocytes # (Manual) Eosinophils # (Manual) D-Dimer Heparin Anti-Xa Level ABG pH POC ABG pCO2 POC ABG pO2 ABG pO2 ABG HCO3 ABG O2 Saturation ABG Base Excess ABG Hemoglobin ABG Oxyhemoglobin VBG pH ABG Sodium ABG Potassium ABG Glucose Oxyhemoglobin Sodium Potassium Chloride 110.2 H Carbon Dioxide 18 L BUN 32 H Creatinine 1.4 H Glucose 180 H POC Glucose 147 H Lactic Acid Calcium Ferritin AST Alkaline Phosphatase Magnesium Lactate Dehydrogenase Total Creatine Kinase CK-MB (CK-2) C-Reactive Protein Total Protein Albumin Troponin T HDL Cholesterol Arterial Blood Glucose Urine WBC (Auto) Urine Creatinine Urine Total Protein Phenytoin Coronavirus (PCR) Crossmatch 05/30/20 05/30/20 05/30/20 00:08 00:12 04:15 WBC RBC Hgb Hct MCHC RDW Lymph % (Auto) [place] % (Auto) Eos % (Auto) Lymph # [place] # Lymph # (Auto) [place] # (Auto) Eos # (Auto) Seg Neutrophils % Seg Neuts % (Manual) Lymphocytes % (Manual) Seg Neutrophils # Seg Neutrophils # Man Lymphocytes # (Manual) Monocytes % (Manual) Eosinophils % (Manual) Monocytes # (Manual) Eosinophils # (Manual) D-Dimer Heparin Anti-Xa Level 0.71 H ABG pH 7.460 H POC ABG pCO2 POC ABG pO2 ABG pO2 106.0 H ABG HCO3 18.9 L ABG O2 Saturation ABG Base Excess -4.4 L ABG Hemoglobin 6.8 L ABG Oxyhemoglobin VBG pH ABG Sodium ABG Potassium ABG Glucose Oxyhemoglobin Sodium Potassium Chloride Carbon Dioxide BUN Creatinine Glucose POC Glucose 195 H Lactic Acid Calcium Ferritin AST Alkaline Phosphatase Magnesium Lactate Dehydrogenase Total Creatine Kinase CK-MB (CK-2) C-Reactive Protein Total Protein Albumin Troponin T HDL Cholesterol Arterial Blood Glucose Urine WBC (Auto) Urine Creatinine Urine Total Protein Phenytoin Coronavirus (PCR) Crossmatch 05/30/20 05/30/20 05/30/20 06:07 08:37 12:33 WBC RBC Hgb Hct MCHC RDW Lymph % (Auto) [place] % (Auto) Eos % (Auto) Lymph # [place] # Lymph # (Auto) [place] # (Auto) Eos # (Auto) Seg Neutrophils % Seg Neuts % (Manual) Lymphocytes % (Manual) Seg Neutrophils # Seg Neutrophils # Man Lymphocytes # (Manual) Monocytes % (Manual) Eosinophils % (Manual) Monocytes # (Manual) Eosinophils # (Manual) D-Dimer Heparin Anti-Xa Level 0.85 H ABG pH POC ABG pCO2 POC ABG pO2 ABG pO2 ABG HCO3 ABG O2 Saturation ABG Base Excess ABG Hemoglobin ABG Oxyhemoglobin VBG pH ABG Sodium ABG Potassium ABG Glucose Oxyhemoglobin Sodium Potassium Chloride Carbon Dioxide BUN Creatinine Glucose POC Glucose 182 H 187 H Lactic Acid Calcium Ferritin AST Alkaline Phosphatase Magnesium Lactate Dehydrogenase Total Creatine Kinase CK-MB (CK-2) C-Reactive Protein Total Protein Albumin Troponin T HDL Cholesterol Arterial Blood Glucose Urine WBC (Auto) Urine Creatinine Urine Total Protein Phenytoin Coronavirus (PCR) Crossmatch 05/30/20 05/30/20 05/30/20 15:58 17:57 23:36 WBC RBC Hgb Hct MCHC RDW Lymph % (Auto) [place] % (Auto) Eos % (Auto) Lymph # [place] # Lymph # (Auto) [place] # (Auto) Eos # (Auto) Seg Neutrophils % Seg Neuts % (Manual) Lymphocytes % (Manual) Seg Neutrophils # Seg Neutrophils # Man Lymphocytes # (Manual) Monocytes % (Manual) Eosinophils % (Manual) Monocytes # (Manual) Eosinophils # (Manual) D-Dimer Heparin Anti-Xa Level 1.03 H ABG pH POC ABG pCO2 POC ABG pO2 ABG pO2 ABG HCO3 ABG O2 Saturation ABG Base Excess ABG Hemoglobin ABG Oxyhemoglobin VBG pH ABG Sodium ABG Potassium ABG Glucose Oxyhemoglobin Sodium Potassium Chloride Carbon Dioxide BUN Creatinine Glucose POC Glucose 208 H 185 H Lactic Acid Calcium Ferritin AST Alkaline Phosphatase Magnesium Lactate Dehydrogenase Total Creatine Kinase CK-MB (CK-2) C-Reactive Protein Total Protein Albumin Troponin T HDL Cholesterol Arterial Blood Glucose Urine WBC (Auto) Urine Creatinine Urine Total Protein Phenytoin Coronavirus (PCR) Crossmatch 05/31/20 05/31/20 05/31/20 02:16 03:55 06:16 WBC RBC Hgb 9.2 L Hct 27.5 L MCHC RDW Lymph % (Auto) [place] % (Auto) Eos % (Auto) Lymph # [place] # Lymph # (Auto) [place] # (Auto) Eos # (Auto) Seg Neutrophils % Seg Neuts % (Manual) Lymphocytes % (Manual) Seg Neutrophils # Seg Neutrophils # Man Lymphocytes # (Manual) Monocytes % (Manual) Eosinophils % (Manual) Monocytes # (Manual) Eosinophils # (Manual) D-Dimer Heparin Anti-Xa Level ABG pH POC ABG pCO2 POC ABG pO2 ABG pO2 94.7 H ABG HCO3 18.6 L ABG O2 Saturation ABG Base Excess -5.5 L ABG Hemoglobin 7.9 L ABG Oxyhemoglobin VBG pH ABG Sodium ABG Potassium ABG Glucose Oxyhemoglobin Sodium Potassium Chloride Carbon Dioxide BUN Creatinine Glucose POC Glucose 160 H Lactic Acid Calcium Ferritin AST Alkaline Phosphatase Magnesium Lactate Dehydrogenase Total Creatine Kinase CK-MB (CK-2) C-Reactive Protein Total Protein Albumin Troponin T HDL Cholesterol Arterial Blood Glucose Urine WBC (Auto) Urine Creatinine Urine Total Protein Phenytoin Coronavirus (PCR) Crossmatch 05/31/20 05/31/20 05/31/20 12:20 13:03 18:13 WBC RBC Hgb Hct MCHC RDW Lymph % (Auto) [place] % (Auto) Eos % (Auto) Lymph # [place] # Lymph # (Auto) [place] # (Auto) Eos # (Auto) Seg Neutrophils % Seg Neuts % (Manual) Lymphocytes % (Manual) Seg Neutrophils # Seg Neutrophils # Man Lymphocytes # (Manual) Monocytes % (Manual) Eosinophils % (Manual) Monocytes # (Manual) Eosinophils # (Manual) D-Dimer Heparin Anti-Xa Level ABG pH POC ABG pCO2 POC ABG pO2 ABG pO2 ABG HCO3 ABG O2 Saturation ABG Base Excess ABG Hemoglobin ABG Oxyhemoglobin VBG pH ABG Sodium ABG Potassium ABG Glucose Oxyhemoglobin Sodium Potassium Chloride Carbon Dioxide 18 L BUN 48 H Creatinine 1.6 H Glucose 115 H POC Glucose 128 H 159 H Lactic Acid Calcium 8.3 L Ferritin AST Alkaline Phosphatase Magnesium Lactate Dehydrogenase Total Creatine Kinase CK-MB (CK-2) C-Reactive Protein Total Protein 5.4 L Albumin 2.4 L Troponin T HDL Cholesterol Arterial Blood Glucose Urine WBC (Auto) Urine Creatinine Urine Total Protein Phenytoin Coronavirus (PCR) Crossmatch 05/31/20 06/01/20 06/01/20 23:51 04:00 05:48 WBC RBC Hgb Hct MCHC RDW Lymph % (Auto) [place] % (Auto) Eos % (Auto) Lymph # [place] # Lymph # (Auto) [place] # (Auto) Eos # (Auto) Seg Neutrophils % Seg Neuts % (Manual) Lymphocytes % (Manual) Seg Neutrophils # Seg Neutrophils # Man Lymphocytes # (Manual) Monocytes % (Manual) Eosinophils % (Manual) Monocytes # (Manual) Eosinophils # (Manual) D-Dimer Heparin Anti-Xa Level ABG pH POC ABG pCO2 POC ABG pO2 ABG pO2 109.8 H ABG HCO3 18.8 L ABG O2 Saturation ABG Base Excess -5.9 L ABG Hemoglobin 7.8 L ABG Oxyhemoglobin VBG pH ABG Sodium ABG Potassium ABG Glucose Oxyhemoglobin Sodium Potassium Chloride Carbon Dioxide BUN Creatinine Glucose POC Glucose 171 H 133 H Lactic Acid Calcium Ferritin AST Alkaline Phosphatase Magnesium Lactate Dehydrogenase Total Creatine Kinase CK-MB (CK-2) C-Reactive Protein Total Protein Albumin Troponin T HDL Cholesterol Arterial Blood Glucose Urine WBC (Auto) Urine Creatinine Urine Total Protein Phenytoin Coronavirus (PCR) Crossmatch 06/01/20 06/01/20 06/02/20 12:28 17:29 00:08 WBC RBC Hgb Hct MCHC RDW Lymph % (Auto) [place] % (Auto) Eos % (Auto) Lymph # [place] # Lymph # (Auto) [place] # (Auto) Eos # (Auto) Seg Neutrophils % Seg Neuts % (Manual) Lymphocytes % (Manual) Seg Neutrophils # Seg Neutrophils # Man Lymphocytes # (Manual) Monocytes % (Manual) Eosinophils % (Manual) Monocytes # (Manual) Eosinophils # (Manual) D-Dimer Heparin Anti-Xa Level ABG pH POC ABG pCO2 POC ABG pO2 ABG pO2 ABG HCO3 ABG O2 Saturation ABG Base Excess ABG Hemoglobin ABG Oxyhemoglobin VBG pH ABG Sodium ABG Potassium ABG Glucose Oxyhemoglobin Sodium Potassium Chloride Carbon Dioxide BUN Creatinine Glucose POC Glucose 199 H 209 H 162 H Lactic Acid Calcium Ferritin AST Alkaline Phosphatase Magnesium Lactate Dehydrogenase Total Creatine Kinase CK-MB (CK-2) C-Reactive Protein Total Protein Albumin Troponin T HDL Cholesterol Arterial Blood Glucose Urine WBC (Auto) Urine Creatinine Urine Total Protein Phenytoin Coronavirus (PCR) Crossmatch 06/02/20 06/02/20 06/02/20 04:20 04:20 04:44 WBC RBC Hgb 10.0 L Hct MCHC RDW Lymph % (Auto) [place] % (Auto) Eos % (Auto) Lymph # [place] # Lymph # (Auto) [place] # (Auto) Eos # (Auto) Seg Neutrophils % Seg Neuts % (Manual) Lymphocytes % (Manual) Seg Neutrophils # Seg Neutrophils # Man Lymphocytes # (Manual) Monocytes % (Manual) Eosinophils % (Manual) Monocytes # (Manual) Eosinophils # (Manual) D-Dimer Heparin Anti-Xa Level 0.10 L ABG pH POC ABG pCO2 POC ABG pO2 ABG pO2 150.6 H ABG HCO3 ABG O2 Saturation ABG Base Excess -4.1 L ABG Hemoglobin 11.8 L ABG Oxyhemoglobin VBG pH ABG Sodium ABG Potassium ABG Glucose Oxyhemoglobin Sodium Potassium Chloride Carbon Dioxide BUN Creatinine Glucose POC Glucose Lactic Acid Calcium Ferritin AST Alkaline Phosphatase Magnesium Lactate Dehydrogenase Total Creatine Kinase CK-MB (CK-2) C-Reactive Protein Total Protein Albumin Troponin T HDL Cholesterol Arterial Blood Glucose Urine WBC (Auto) Urine Creatinine Urine Total Protein Phenytoin Coronavirus (PCR) Crossmatch 06/02/20 06/02/20 06/02/20 05:53 12:04 13:49 WBC RBC Hgb Hct MCHC RDW Lymph % (Auto) [place] % (Auto) Eos % (Auto) Lymph # [place] # Lymph # (Auto) [place] # (Auto) Eos # (Auto) Seg Neutrophils % Seg Neuts % (Manual) Lymphocytes % (Manual) Seg Neutrophils # Seg Neutrophils # Man Lymphocytes # (Manual) Monocytes % (Manual) Eosinophils % (Manual) Monocytes # (Manual) Eosinophils # (Manual) D-Dimer Heparin Anti-Xa Level 0.28 L ABG pH POC ABG pCO2 POC ABG pO2 ABG pO2 ABG HCO3 ABG O2 Saturation ABG Base Excess ABG Hemoglobin ABG Oxyhemoglobin VBG pH ABG Sodium ABG Potassium ABG Glucose Oxyhemoglobin Sodium Potassium Chloride Carbon Dioxide BUN Creatinine Glucose POC Glucose 149 H 220 H Lactic Acid Calcium Ferritin AST Alkaline Phosphatase Magnesium Lactate Dehydrogenase Total Creatine Kinase CK-MB (CK-2) C-Reactive Protein Total Protein Albumin Troponin T HDL Cholesterol Arterial Blood Glucose Urine WBC (Auto) Urine Creatinine Urine Total Protein Phenytoin Coronavirus (PCR) Crossmatch 06/02/20 06/02/20 06/03/20 13:49 18:31 00:42 WBC RBC Hgb Hct MCHC RDW Lymph % (Auto) [place] % (Auto) Eos % (Auto) Lymph # [place] # Lymph # (Auto) [place] # (Auto) Eos # (Auto) Seg Neutrophils % Seg Neuts % (Manual) Lymphocytes % (Manual) Seg Neutrophils # Seg Neutrophils # Man Lymphocytes # (Manual) Monocytes % (Manual) Eosinophils % (Manual) Monocytes # (Manual) Eosinophils # (Manual) D-Dimer 769.68 H Heparin Anti-Xa Level ABG pH POC ABG pCO2 POC ABG pO2 ABG pO2 ABG HCO3 ABG O2 Saturation ABG Base Excess ABG Hemoglobin ABG Oxyhemoglobin VBG pH ABG Sodium ABG Potassium ABG Glucose Oxyhemoglobin Sodium Potassium Chloride Carbon Dioxide BUN Creatinine Glucose POC Glucose 225 H 212 H Lactic Acid Calcium Ferritin AST Alkaline Phosphatase Magnesium Lactate Dehydrogenase Total Creatine Kinase CK-MB (CK-2) C-Reactive Protein Total Protein Albumin Troponin T HDL Cholesterol Arterial Blood Glucose Urine WBC (Auto) Urine Creatinine Urine Total Protein Phenytoin Coronavirus (PCR) Crossmatch 06/03/20 06/03/20 06/03/20 05:16 05:16 05:25 WBC 11.4 H RBC Hgb Hct MCHC RDW 16.4 H Lymph % (Auto) [place] % (Auto) Eos % (Auto) Lymph # [place] # Lymph # (Auto) [place] # (Auto) Eos # (Auto) Seg Neutrophils % Seg Neuts % (Manual) Lymphocytes % (Manual) Seg Neutrophils # Seg Neutrophils # Man Lymphocytes # (Manual) Monocytes % (Manual) Eosinophils % (Manual) Monocytes # (Manual) Eosinophils # (Manual) D-Dimer Heparin Anti-Xa Level ABG pH POC ABG pCO2 POC ABG pO2 ABG pO2 160.9 H ABG HCO3 19.4 L ABG O2 Saturation ABG Base Excess -4.9 L ABG Hemoglobin 7.0 L ABG Oxyhemoglobin VBG pH ABG Sodium ABG Potassium ABG Glucose Oxyhemoglobin Sodium Potassium Chloride Carbon Dioxide 18 L BUN 65 H Creatinine 2.0 H Glucose 175 H POC Glucose Lactic Acid Calcium 8.0 L Ferritin AST Alkaline Phosphatase Magnesium Lactate Dehydrogenase Total Creatine Kinase CK-MB (CK-2) C-Reactive Protein Total Protein 5.5 L Albumin 2.2 L Troponin T HDL Cholesterol Arterial Blood Glucose Urine WBC (Auto) Urine Creatinine Urine Total Protein Phenytoin Coronavirus (PCR) Crossmatch 06/03/20 06/03/20 06/03/20 06:07 11:58 18:24 WBC RBC Hgb Hct MCHC RDW Lymph % (Auto) [place] % (Auto) Eos % (Auto) Lymph # [place] # Lymph # (Auto) [place] # (Auto) Eos # (Auto) Seg Neutrophils % Seg Neuts % (Manual) Lymphocytes % (Manual) Seg Neutrophils # Seg Neutrophils # Man Lymphocytes # (Manual) Monocytes % (Manual) Eosinophils % (Manual) Monocytes # (Manual) Eosinophils # (Manual) D-Dimer Heparin Anti-Xa Level ABG pH POC ABG pCO2 POC ABG pO2 ABG pO2 ABG HCO3 ABG O2 Saturation ABG Base Excess ABG Hemoglobin ABG Oxyhemoglobin VBG pH ABG Sodium ABG Potassium ABG Glucose Oxyhemoglobin Sodium Potassium Chloride Carbon Dioxide BUN Creatinine Glucose POC Glucose 177 H 163 H 211 H Lactic Acid Calcium Ferritin AST Alkaline Phosphatase Magnesium Lactate Dehydrogenase Total Creatine Kinase CK-MB (CK-2) C-Reactive Protein Total Protein Albumin Troponin T HDL Cholesterol Arterial Blood Glucose Urine WBC (Auto) Urine Creatinine Urine Total Protein Phenytoin Coronavirus (PCR) Crossmatch 06/03/20 06/03/20 06/04/20 21:50 Unknown 00:26 WBC RBC Hgb Hct MCHC RDW Lymph % (Auto) [place] % (Auto) Eos % (Auto) Lymph # [place] # Lymph # (Auto) [place] # (Auto) Eos # (Auto) Seg Neutrophils % Seg Neuts % (Manual) Lymphocytes % (Manual) Seg Neutrophils # Seg Neutrophils # Man Lymphocytes # (Manual) Monocytes % (Manual) Eosinophils % (Manual) Monocytes # (Manual) Eosinophils # (Manual) D-Dimer Heparin Anti-Xa Level ABG pH POC ABG pCO2 POC ABG pO2 ABG pO2 ABG HCO3 ABG O2 Saturation ABG Base Excess ABG Hemoglobin ABG Oxyhemoglobin VBG pH ABG Sodium ABG Potassium ABG Glucose Oxyhemoglobin Sodium 135 L Potassium Chloride Carbon Dioxide 18 L BUN Creatinine Glucose POC Glucose 241 H Lactic Acid Calcium Ferritin AST Alkaline Phosphatase Magnesium Lactate Dehydrogenase Total Creatine Kinase CK-MB (CK-2) C-Reactive Protein Total Protein Albumin Troponin T HDL Cholesterol Arterial Blood Glucose Urine WBC (Auto) 11.0 H Urine Creatinine Urine Total Protein Phenytoin Coronavirus (PCR) Crossmatch 06/04/20 06/04/20 06/04/20 03:35 04:19 04:19 WBC RBC 3.15 L Hgb 8.9 L Hct 26.8 L D MCHC RDW 15.9 H Lymph % (Auto) 6.0 L [place] % (Auto) Eos % (Auto) Lymph # 0.6 L [place] # Lymph # (Auto) [place] # (Auto) Eos # (Auto) Seg Neutrophils % 86.6 H Seg Neuts % (Manual) Lymphocytes % (Manual) Seg Neutrophils # 9.1 H Seg Neutrophils # Man Lymphocytes # (Manual) Monocytes % (Manual) Eosinophils % (Manual) Monocytes # (Manual) Eosinophils # (Manual) D-Dimer Heparin Anti-Xa Level ABG pH 7.331 L POC ABG pCO2 POC ABG pO2 ABG pO2 ABG HCO3 ABG O2 Saturation ABG Base Excess -4.7 L ABG Hemoglobin 11.0 L ABG Oxyhemoglobin VBG pH ABG Sodium ABG Potassium ABG Glucose Oxyhemoglobin 93.9 L Sodium 136 L Potassium Chloride Carbon Dioxide 20 L BUN 73 H Creatinine 2.0 H Glucose 192 H POC Glucose Lactic Acid Calcium 8.0 L Ferritin AST Alkaline Phosphatase Magnesium Lactate Dehydrogenase 271 H Total Creatine Kinase CK-MB (CK-2) C-Reactive Protein 2.20 H Total Protein 5.0 L Albumin 2.0 L Troponin T HDL Cholesterol Arterial Blood Glucose Urine WBC (Auto) Urine Creatinine Urine Total Protein Phenytoin Coronavirus (PCR) Crossmatch 06/04/20 06/04/20 06/04/20 04:19 05:51 11:48 WBC RBC Hgb Hct MCHC RDW Lymph % (Auto) [place] % (Auto) Eos % (Auto) Lymph # [place] # Lymph # (Auto) [place] # (Auto) Eos # (Auto) Seg Neutrophils % Seg Neuts % (Manual) Lymphocytes % (Manual) Seg Neutrophils # Seg Neutrophils # Man Lymphocytes # (Manual) Monocytes % (Manual) Eosinophils % (Manual) Monocytes # (Manual) Eosinophils # (Manual) D-Dimer 414.52 H Heparin Anti-Xa Level ABG pH POC ABG pCO2 POC ABG pO2 ABG pO2 ABG HCO3 ABG O2 Saturation ABG Base Excess ABG Hemoglobin ABG Oxyhemoglobin VBG pH ABG Sodium ABG Potassium ABG Glucose Oxyhemoglobin Sodium Potassium Chloride Carbon Dioxide BUN Creatinine Glucose POC Glucose 179 H 213 H Lactic Acid Calcium Ferritin AST Alkaline Phosphatase Magnesium Lactate Dehydrogenase Total Creatine Kinase CK-MB (CK-2) C-Reactive Protein Total Protein Albumin Troponin T HDL Cholesterol Arterial Blood Glucose Urine WBC (Auto) Urine Creatinine Urine Total Protein Phenytoin Coronavirus (PCR) Crossmatch 06/04/20 06/05/20 06/05/20 18:25 00:16 05:00 WBC RBC Hgb Hct MCHC RDW Lymph % (Auto) [place] % (Auto) Eos % (Auto) Lymph # [place] # Lymph # (Auto) [place] # (Auto) Eos # (Auto) Seg Neutrophils % Seg Neuts % (Manual) Lymphocytes % (Manual) Seg Neutrophils # Seg Neutrophils # Man Lymphocytes # (Manual) Monocytes % (Manual) Eosinophils % (Manual) Monocytes # (Manual) Eosinophils # (Manual) D-Dimer Heparin Anti-Xa Level ABG pH 7.286 L POC ABG pCO2 POC ABG pO2 ABG pO2 96.2 H ABG HCO3 ABG O2 Saturation ABG Base Excess -6.3 L ABG Hemoglobin 8.8 L ABG Oxyhemoglobin VBG pH ABG Sodium ABG Potassium ABG Glucose Oxyhemoglobin 94.8 L Sodium Potassium Chloride Carbon Dioxide BUN Creatinine Glucose POC Glucose 238 H 183 H Lactic Acid Calcium Ferritin AST Alkaline Phosphatase Magnesium Lactate Dehydrogenase Total Creatine Kinase CK-MB (CK-2) C-Reactive Protein Total Protein Albumin Troponin T HDL Cholesterol Arterial Blood Glucose Urine WBC (Auto) Urine Creatinine Urine Total Protein Phenytoin Coronavirus (PCR) Crossmatch 06/05/20 06/05/20 06/05/20 05:39 07:25 07:25 WBC RBC 2.97 L Hgb 8.7 L Hct 25.7 L MCHC RDW 16.0 H Lymph % (Auto) 8.8 L [place] % (Auto) 13.3 H Eos % (Auto) Lymph # 0.8 L [place] # 1.3 H Lymph # (Auto) [place] # (Auto) Eos # (Auto) Seg Neutrophils % 77.3 H Seg Neuts % (Manual) Lymphocytes % (Manual) Seg Neutrophils # Seg Neutrophils # Man Lymphocytes # (Manual) Monocytes % (Manual) Eosinophils % (Manual) Monocytes # (Manual) Eosinophils # (Manual) D-Dimer Heparin Anti-Xa Level ABG pH POC ABG pCO2 POC ABG pO2 ABG pO2 ABG HCO3 ABG O2 Saturation ABG Base Excess ABG Hemoglobin ABG Oxyhemoglobin VBG pH ABG Sodium ABG Potassium ABG Glucose Oxyhemoglobin Sodium 133 L Potassium Chloride Carbon Dioxide 17 L BUN 89 H Creatinine 2.8 H Glucose 176 H POC Glucose 149 H Lactic Acid Calcium 7.7 L Ferritin AST Alkaline Phosphatase Magnesium Lactate Dehydrogenase Total Creatine Kinase CK-MB (CK-2) C-Reactive Protein Total Protein 4.2 L Albumin 1.9 L Troponin T HDL Cholesterol Arterial Blood Glucose Urine WBC (Auto) Urine Creatinine Urine Total Protein Phenytoin Coronavirus (PCR) Crossmatch 06/05/20 06/05/20 06/05/20 07:25 12:05 15:41 WBC RBC Hgb Hct MCHC RDW Lymph % (Auto) [place] % (Auto) Eos % (Auto) Lymph # [place] # Lymph # (Auto) [place] # (Auto) Eos # (Auto) Seg Neutrophils % Seg Neuts % (Manual) Lymphocytes % (Manual) Seg Neutrophils # Seg Neutrophils # Man Lymphocytes # (Manual) Monocytes % (Manual) Eosinophils % (Manual) Monocytes # (Manual) Eosinophils # (Manual) D-Dimer Heparin Anti-Xa Level 0.76 H 0.81 H ABG pH POC ABG pCO2 POC ABG pO2 ABG pO2 ABG HCO3 ABG O2 Saturation ABG Base Excess ABG Hemoglobin ABG Oxyhemoglobin VBG pH ABG Sodium ABG Potassium ABG Glucose Oxyhemoglobin Sodium Potassium Chloride Carbon Dioxide BUN Creatinine Glucose POC Glucose 198 H Lactic Acid Calcium Ferritin AST Alkaline Phosphatase Magnesium Lactate Dehydrogenase Total Creatine Kinase CK-MB (CK-2) C-Reactive Protein Total Protein Albumin Troponin T HDL Cholesterol Arterial Blood Glucose Urine WBC (Auto) Urine Creatinine Urine Total Protein Phenytoin Coronavirus (PCR) Crossmatch 06/05/20 06/05/20 06/06/20 18:08 23:25 04:00 WBC RBC Hgb Hct MCHC RDW Lymph % (Auto) [place] % (Auto) Eos % (Auto) Lymph # [place] # Lymph # (Auto) [place] # (Auto) Eos # (Auto) Seg Neutrophils % Seg Neuts % (Manual) Lymphocytes % (Manual) Seg Neutrophils # Seg Neutrophils # Man Lymphocytes # (Manual) Monocytes % (Manual) Eosinophils % (Manual) Monocytes # (Manual) Eosinophils # (Manual) D-Dimer Heparin Anti-Xa Level ABG pH POC ABG pCO2 POC ABG pO2 ABG pO2 ABG HCO3 ABG O2 Saturation ABG Base Excess ABG Hemoglobin ABG Oxyhemoglobin VBG pH ABG Sodium ABG Potassium ABG Glucose Oxyhemoglobin Sodium Potassium Chloride Carbon Dioxide BUN Creatinine Glucose POC Glucose 223 H 169 H Lactic Acid Calcium Ferritin AST Alkaline Phosphatase Magnesium Lactate Dehydrogenase Total Creatine Kinase CK-MB (CK-2) C-Reactive Protein Total Protein Albumin Troponin T HDL Cholesterol Arterial Blood Glucose Urine WBC (Auto) 15.0 H Urine Creatinine Urine Total Protein Phenytoin Coronavirus (PCR) Crossmatch 06/06/20 06/06/20 06/06/20 04:00 05:33 05:38 WBC RBC 2.97 L Hgb 8.7 L Hct 26.8 L MCHC RDW 16.8 H Lymph % (Auto) [place] % (Auto) Eos % (Auto) Lymph # [place] # Lymph # (Auto) [place] # (Auto) Eos # (Auto) Seg Neutrophils % Seg Neuts % (Manual) Lymphocytes % (Manual) Seg Neutrophils # Seg Neutrophils # Man Lymphocytes # (Manual) Monocytes % (Manual) Eosinophils % (Manual) Monocytes # (Manual) Eosinophils # (Manual) D-Dimer Heparin Anti-Xa Level ABG pH POC ABG pCO2 POC ABG pO2 ABG pO2 ABG HCO3 ABG O2 Saturation ABG Base Excess ABG Hemoglobin ABG Oxyhemoglobin VBG pH ABG Sodium ABG Potassium ABG Glucose Oxyhemoglobin Sodium Potassium Chloride Carbon Dioxide BUN Creatinine Glucose POC Glucose 186 H Lactic Acid Calcium Ferritin AST Alkaline Phosphatase Magnesium Lactate Dehydrogenase Total Creatine Kinase CK-MB (CK-2) C-Reactive Protein Total Protein Albumin Troponin T HDL Cholesterol Arterial Blood Glucose Urine WBC (Auto) Urine Creatinine 82.2 H Urine Total Protein 196 H Phenytoin Coronavirus (PCR) Crossmatch 06/06/20 06/06/20 06/06/20 05:38 12:25 17:03 WBC RBC Hgb Hct MCHC RDW Lymph % (Auto) [place] % (Auto) Eos % (Auto) Lymph # [place] # Lymph # (Auto) [place] # (Auto) Eos # (Auto) Seg Neutrophils % Seg Neuts % (Manual) Lymphocytes % (Manual) Seg Neutrophils # Seg Neutrophils # Man Lymphocytes # (Manual) Monocytes % (Manual) Eosinophils % (Manual) Monocytes # (Manual) Eosinophils # (Manual) D-Dimer Heparin Anti-Xa Level ABG pH POC ABG pCO2 POC ABG pO2 ABG pO2 ABG HCO3 ABG O2 Saturation ABG Base Excess ABG Hemoglobin ABG Oxyhemoglobin VBG pH ABG Sodium ABG Potassium ABG Glucose Oxyhemoglobin Sodium 134 L Potassium 5.2 H Chloride Carbon Dioxide 18 L BUN 97 H Creatinine 2.5 H Glucose 193 H POC Glucose 239 H 252 H Lactic Acid Calcium 7.5 L Ferritin AST Alkaline Phosphatase Magnesium Lactate Dehydrogenase Total Creatine Kinase CK-MB (CK-2) C-Reactive Protein Total Protein 4.1 L Albumin 1.9 L Troponin T HDL Cholesterol Arterial Blood Glucose Urine WBC (Auto) Urine Creatinine Urine Total Protein Phenytoin Coronavirus (PCR) Crossmatch 06/07/20 06/07/20 06/07/20 00:16 01:49 04:00 WBC RBC 2.91 L Hgb 8.4 L Hct 25.0 L MCHC RDW 16.1 H Lymph % (Auto) 5.7 L [place] % (Auto) 10.5 H Eos % (Auto) Lymph # 0.6 L [place] # 1.1 H Lymph # (Auto) [place] # (Auto) Eos # (Auto) Seg Neutrophils % 83.6 H Seg Neuts % (Manual) Lymphocytes % (Manual) Seg Neutrophils # 9.1 H Seg Neutrophils # Man Lymphocytes # (Manual) Monocytes % (Manual) Eosinophils % (Manual) Monocytes # (Manual) Eosinophils # (Manual) D-Dimer Heparin Anti-Xa Level 0.26 L ABG pH POC ABG pCO2 POC ABG pO2 ABG pO2 ABG HCO3 ABG O2 Saturation ABG Base Excess ABG Hemoglobin ABG Oxyhemoglobin VBG pH ABG Sodium ABG Potassium ABG Glucose Oxyhemoglobin Sodium Potassium Chloride Carbon Dioxide BUN Creatinine Glucose POC Glucose 173 H Lactic Acid Calcium Ferritin AST Alkaline Phosphatase Magnesium Lactate Dehydrogenase Total Creatine Kinase CK-MB (CK-2) C-Reactive Protein Total Protein Albumin Troponin T HDL Cholesterol Arterial Blood Glucose Urine WBC (Auto) Urine Creatinine Urine Total Protein Phenytoin Coronavirus (PCR) Crossmatch 06/07/20 06/07/20 06/07/20 04:00 04:54 05:51 WBC RBC Hgb Hct MCHC RDW Lymph % (Auto) [place] % (Auto) Eos % (Auto) Lymph # [place] # Lymph # (Auto) [place] # (Auto) Eos # (Auto) Seg Neutrophils % Seg Neuts % (Manual) Lymphocytes % (Manual) Seg Neutrophils # Seg Neutrophils # Man Lymphocytes # (Manual) Monocytes % (Manual) Eosinophils % (Manual) Monocytes # (Manual) Eosinophils # (Manual) D-Dimer Heparin Anti-Xa Level ABG pH 7.317 L POC ABG pCO2 POC ABG pO2 ABG pO2 71.4 L ABG HCO3 ABG O2 Saturation 94.3 L ABG Base Excess -4.8 L ABG Hemoglobin 7.1 L ABG Oxyhemoglobin VBG pH ABG Sodium ABG Potassium ABG Glucose Oxyhemoglobin 92.2 L Sodium 133 L Potassium Chloride Carbon Dioxide 18 L BUN 100 H Creatinine 2.5 H Glucose 158 H POC Glucose 168 H Lactic Acid Calcium 7.6 L Ferritin AST Alkaline Phosphatase Magnesium Lactate Dehydrogenase Total Creatine Kinase CK-MB (CK-2) C-Reactive Protein Total Protein 4.7 L Albumin 2.0 L Troponin T HDL Cholesterol Arterial Blood Glucose Urine WBC (Auto) Urine Creatinine Urine Total Protein Phenytoin Coronavirus (PCR) Crossmatch 06/07/20 06/07/20 06/07/20 12:03 17:17 20:10 WBC RBC Hgb Hct MCHC RDW Lymph % (Auto) [place] % (Auto) Eos % (Auto) Lymph # [place] # Lymph # (Auto) [place] # (Auto) Eos # (Auto) Seg Neutrophils % Seg Neuts % (Manual) Lymphocytes % (Manual) Seg Neutrophils # Seg Neutrophils # Man Lymphocytes # (Manual) Monocytes % (Manual) Eosinophils % (Manual) Monocytes # (Manual) Eosinophils # (Manual) D-Dimer Heparin Anti-Xa Level 0.17 L ABG pH POC ABG pCO2 POC ABG pO2 ABG pO2 ABG HCO3 ABG O2 Saturation ABG Base Excess ABG Hemoglobin ABG Oxyhemoglobin VBG pH ABG Sodium ABG Potassium ABG Glucose Oxyhemoglobin Sodium Potassium Chloride Carbon Dioxide BUN Creatinine Glucose POC Glucose 276 H 281 H Lactic Acid Calcium Ferritin AST Alkaline Phosphatase Magnesium Lactate Dehydrogenase Total Creatine Kinase CK-MB (CK-2) C-Reactive Protein Total Protein Albumin Troponin T HDL Cholesterol Arterial Blood Glucose Urine WBC (Auto) Urine Creatinine Urine Total Protein Phenytoin Coronavirus (PCR) Crossmatch 06/08/20 06/08/20 06/08/20 00:02 04:47 04:47 WBC 16.4 H RBC 3.07 L Hgb 8.6 L Hct 26.5 L MCHC RDW 16.3 H Lymph % (Auto) [place] % (Auto) Eos % (Auto) Lymph # [place] # Lymph # (Auto) [place] # (Auto) Eos # (Auto) Seg Neutrophils % Seg Neuts % (Manual) 90.0 H Lymphocytes % (Manual) 3.0 L Seg Neutrophils # Seg Neutrophils # Man 14.8 H Lymphocytes # (Manual) 0.5 L Monocytes % (Manual) Eosinophils % (Manual) Monocytes # (Manual) 1.1 H Eosinophils # (Manual) D-Dimer Heparin Anti-Xa Level ABG pH POC ABG pCO2 POC ABG pO2 ABG pO2 ABG HCO3 ABG O2 Saturation ABG Base Excess ABG Hemoglobin ABG Oxyhemoglobin VBG pH ABG Sodium ABG Potassium ABG Glucose Oxyhemoglobin Sodium 129 L Potassium Chloride 95.6 L Carbon Dioxide 17 L BUN 106 H Creatinine 2.5 H Glucose 213 H POC Glucose 242 H Lactic Acid Calcium 7.6 L Ferritin AST Alkaline Phosphatase Magnesium Lactate Dehydrogenase Total Creatine Kinase CK-MB (CK-2) C-Reactive Protein Total Protein 5.0 L Albumin 2.1 L Troponin T HDL Cholesterol Arterial Blood Glucose Urine WBC (Auto) Urine Creatinine Urine Total Protein Phenytoin Coronavirus (PCR) Crossmatch 06/08/20 06/08/20 06/08/20 05:40 11:55 17:54 WBC RBC Hgb Hct MCHC RDW Lymph % (Auto) [place] % (Auto) Eos % (Auto) Lymph # [place] # Lymph # (Auto) [place] # (Auto) Eos # (Auto) Seg Neutrophils % Seg Neuts % (Manual) Lymphocytes % (Manual) Seg Neutrophils # Seg Neutrophils # Man Lymphocytes # (Manual) Monocytes % (Manual) Eosinophils % (Manual) Monocytes # (Manual) Eosinophils # (Manual) D-Dimer Heparin Anti-Xa Level ABG pH POC ABG pCO2 POC ABG pO2 ABG pO2 ABG HCO3 ABG O2 Saturation ABG Base Excess ABG Hemoglobin ABG Oxyhemoglobin VBG pH ABG Sodium ABG Potassium ABG Glucose Oxyhemoglobin Sodium Potassium Chloride Carbon Dioxide BUN Creatinine Glucose POC Glucose 221 H 218 H 163 H Lactic Acid Calcium Ferritin AST Alkaline Phosphatase Magnesium Lactate Dehydrogenase Total Creatine Kinase CK-MB (CK-2) C-Reactive Protein Total Protein Albumin Troponin T HDL Cholesterol Arterial Blood Glucose Urine WBC (Auto) Urine Creatinine Urine Total Protein Phenytoin Coronavirus (PCR) Crossmatch 06/08/20 06/09/20 06/09/20 22:01 00:09 05:16 WBC 19.0 H RBC 3.35 L Hgb 9.2 L Hct 28.5 L MCHC RDW 16.3 H Lymph % (Auto) [place] % (Auto) Eos % (Auto) Lymph # [place] # Lymph # (Auto) [place] # (Auto) Eos # (Auto) Seg Neutrophils % Seg Neuts % (Manual) 85.0 H Lymphocytes % (Manual) 7.0 L Seg Neutrophils # Seg Neutrophils # Man 16.2 H Lymphocytes # (Manual) Monocytes % (Manual) Eosinophils % (Manual) Monocytes # (Manual) 1.3 H Eosinophils # (Manual) D-Dimer Heparin Anti-Xa Level ABG pH POC ABG pCO2 POC ABG pO2 ABG pO2 ABG HCO3 ABG O2 Saturation ABG Base Excess ABG Hemoglobin ABG Oxyhemoglobin VBG pH ABG Sodium ABG Potassium ABG Glucose Oxyhemoglobin Sodium Potassium Chloride Carbon Dioxide BUN Creatinine Glucose POC Glucose 182 H 150 H Lactic Acid Calcium Ferritin AST Alkaline Phosphatase Magnesium Lactate Dehydrogenase Total Creatine Kinase CK-MB (CK-2) C-Reactive Protein Total Protein Albumin Troponin T HDL Cholesterol Arterial Blood Glucose Urine WBC (Auto) Urine Creatinine Urine Total Protein Phenytoin Coronavirus (PCR) Crossmatch 06/09/20 06/09/20 06/09/20 05:16 05:24 11:29 WBC RBC Hgb Hct MCHC RDW Lymph % (Auto) [place] % (Auto) Eos % (Auto) Lymph # [place] # Lymph # (Auto) [place] # (Auto) Eos # (Auto) Seg Neutrophils % Seg Neuts % (Manual) Lymphocytes % (Manual) Seg Neutrophils # Seg Neutrophils # Man Lymphocytes # (Manual) Monocytes % (Manual) Eosinophils % (Manual) Monocytes # (Manual) Eosinophils # (Manual) D-Dimer Heparin Anti-Xa Level ABG pH POC ABG pCO2 POC ABG pO2 ABG pO2 ABG HCO3 ABG O2 Saturation ABG Base Excess ABG Hemoglobin ABG Oxyhemoglobin VBG pH ABG Sodium ABG Potassium ABG Glucose Oxyhemoglobin Sodium 133 L Potassium Chloride Carbon Dioxide 19 L BUN 109 H Creatinine 2.1 H Glucose 133 H POC Glucose 128 H 119 H Lactic Acid Calcium 7.7 L Ferritin AST Alkaline Phosphatase < 5 L Magnesium Lactate Dehydrogenase Total Creatine Kinase CK-MB (CK-2) C-Reactive Protein Total Protein 4.6 L Albumin < 0.2 L Troponin T HDL Cholesterol Arterial Blood Glucose Urine WBC (Auto) Urine Creatinine Urine Total Protein Phenytoin Coronavirus (PCR) Crossmatch 06/09/20 06/10/20 06/10/20 17:32 00:00 05:49 WBC RBC Hgb Hct MCHC RDW Lymph % (Auto) [place] % (Auto) Eos % (Auto) Lymph # [place] # Lymph # (Auto) [place] # (Auto) Eos # (Auto) Seg Neutrophils % Seg Neuts % (Manual) Lymphocytes % (Manual) Seg Neutrophils # Seg Neutrophils # Man Lymphocytes # (Manual) Monocytes % (Manual) Eosinophils % (Manual) Monocytes # (Manual) Eosinophils # (Manual) D-Dimer Heparin Anti-Xa Level 0.19 L ABG pH POC ABG pCO2 POC ABG pO2 ABG pO2 ABG HCO3 ABG O2 Saturation ABG Base Excess ABG Hemoglobin ABG Oxyhemoglobin VBG pH ABG Sodium ABG Potassium ABG Glucose Oxyhemoglobin Sodium Potassium Chloride Carbon Dioxide BUN Creatinine Glucose POC Glucose 106 H 117 H Lactic Acid Calcium Ferritin AST Alkaline Phosphatase Magnesium Lactate Dehydrogenase Total Creatine Kinase CK-MB (CK-2) C-Reactive Protein Total Protein Albumin Troponin T HDL Cholesterol Arterial Blood Glucose Urine WBC (Auto) Urine Creatinine Urine Total Protein Phenytoin Coronavirus (PCR) Crossmatch 06/10/20 06/10/20 06/10/20 05:54 07:40 11:40 WBC RBC Hgb Hct MCHC RDW Lymph % (Auto) [place] % (Auto) Eos % (Auto) Lymph # [place] # Lymph # (Auto) [place] # (Auto) Eos # (Auto) Seg Neutrophils % Seg Neuts % (Manual) Lymphocytes % (Manual) Seg Neutrophils # Seg Neutrophils # Man Lymphocytes # (Manual) Monocytes % (Manual) Eosinophils % (Manual) Monocytes # (Manual) Eosinophils # (Manual) D-Dimer Heparin Anti-Xa Level ABG pH POC ABG pCO2 POC ABG pO2 ABG pO2 ABG HCO3 ABG O2 Saturation ABG Base Excess ABG Hemoglobin ABG Oxyhemoglobin VBG pH ABG Sodium ABG Potassium ABG Glucose Oxyhemoglobin Sodium 146 H D Potassium Chloride Carbon Dioxide 20 L BUN 99 H Creatinine 1.9 H Glucose 121 H POC Glucose 127 H 138 H Lactic Acid Calcium 8.2 L Ferritin AST Alkaline Phosphatase Magnesium Lactate Dehydrogenase Total Creatine Kinase CK-MB (CK-2) C-Reactive Protein Total Protein Albumin Troponin T HDL Cholesterol Arterial Blood Glucose Urine WBC (Auto) Urine Creatinine Urine Total Protein Phenytoin Coronavirus (PCR) Crossmatch 06/10/20 06/10/20 06/10/20 14:44 17:31 23:22 WBC RBC Hgb Hct MCHC RDW Lymph % (Auto) [place] % (Auto) Eos % (Auto) Lymph # [place] # Lymph # (Auto) [place] # (Auto) Eos # (Auto) Seg Neutrophils % Seg Neuts % (Manual) Lymphocytes % (Manual) Seg Neutrophils # Seg Neutrophils # Man Lymphocytes # (Manual) Monocytes % (Manual) Eosinophils % (Manual) Monocytes # (Manual) Eosinophils # (Manual) D-Dimer Heparin Anti-Xa Level 0.17 L ABG pH POC ABG pCO2 POC ABG pO2 ABG pO2 ABG HCO3 ABG O2 Saturation ABG Base Excess ABG Hemoglobin ABG Oxyhemoglobin VBG pH ABG Sodium ABG Potassium ABG Glucose Oxyhemoglobin Sodium Potassium Chloride Carbon Dioxide BUN Creatinine Glucose POC Glucose 128 H 114 H Lactic Acid Calcium Ferritin AST Alkaline Phosphatase Magnesium Lactate Dehydrogenase Total Creatine Kinase CK-MB (CK-2) C-Reactive Protein Total Protein Albumin Troponin T HDL Cholesterol Arterial Blood Glucose Urine WBC (Auto) Urine Creatinine Urine Total Protein Phenytoin Coronavirus (PCR) Crossmatch 06/11/20 06/11/20 06/11/20 00:22 03:45 03:45 WBC 14.6 H RBC 2.77 L Hgb 7.9 L Hct 24.3 L MCHC RDW 16.8 H Lymph % (Auto) 6.6 L [place] % (Auto) 8.5 H Eos % (Auto) Lymph # 1.0 L [place] # 1.2 H Lymph # (Auto) [place] # (Auto) Eos # (Auto) Seg Neutrophils % 82.9 H Seg Neuts % (Manual) Lymphocytes % (Manual) Seg Neutrophils # 12.1 H Seg Neutrophils # Man Lymphocytes # (Manual) Monocytes % (Manual) Eosinophils % (Manual) Monocytes # (Manual) Eosinophils # (Manual) D-Dimer Heparin Anti-Xa Level 0.24 L ABG pH POC ABG pCO2 POC ABG pO2 ABG pO2 ABG HCO3 ABG O2 Saturation ABG Base Excess ABG Hemoglobin ABG Oxyhemoglobin VBG pH ABG Sodium ABG Potassium ABG Glucose Oxyhemoglobin Sodium Potassium Chloride Carbon Dioxide 20 L BUN 88 H Creatinine 1.5 H Glucose 111 H POC Glucose Lactic Acid Calcium 8.2 L Ferritin AST Alkaline Phosphatase Magnesium Lactate Dehydrogenase Total Creatine Kinase CK-MB (CK-2) C-Reactive Protein Total Protein Albumin Troponin T HDL Cholesterol Arterial Blood Glucose Urine WBC (Auto) Urine Creatinine Urine Total Protein Phenytoin Coronavirus (PCR) Crossmatch 06/11/20 06/11/20 06/11/20 06:03 10:22 11:11 WBC RBC Hgb Hct MCHC RDW Lymph % (Auto) [place] % (Auto) Eos % (Auto) Lymph # [place] # Lymph # (Auto) [place] # (Auto) Eos # (Auto) Seg Neutrophils % Seg Neuts % (Manual) Lymphocytes % (Manual) Seg Neutrophils # Seg Neutrophils # Man Lymphocytes # (Manual) Monocytes % (Manual) Eosinophils % (Manual) Monocytes # (Manual) Eosinophils # (Manual) D-Dimer Heparin Anti-Xa Level 0.26 L ABG pH POC ABG pCO2 POC ABG pO2 ABG pO2 ABG HCO3 ABG O2 Saturation ABG Base Excess ABG Hemoglobin 9.6 L ABG Oxyhemoglobin VBG pH ABG Sodium ABG Potassium ABG Glucose Oxyhemoglobin Sodium Potassium Chloride Carbon Dioxide BUN Creatinine Glucose POC Glucose 114 H Lactic Acid Calcium Ferritin AST Alkaline Phosphatase Magnesium Lactate Dehydrogenase Total Creatine Kinase CK-MB (CK-2) C-Reactive Protein Total Protein Albumin Troponin T HDL Cholesterol Arterial Blood Glucose Urine WBC (Auto) Urine Creatinine Urine Total Protein Phenytoin Coronavirus (PCR) Crossmatch 06/11/20 06/11/20 06/12/20 12:24 17:24 00:21 WBC RBC Hgb Hct MCHC RDW Lymph % (Auto) [place] % (Auto) Eos % (Auto) Lymph # [place] # Lymph # (Auto) [place] # (Auto) Eos # (Auto) Seg Neutrophils % Seg Neuts % (Manual) Lymphocytes % (Manual) Seg Neutrophils # Seg Neutrophils # Man Lymphocytes # (Manual) Monocytes % (Manual) Eosinophils % (Manual) Monocytes # (Manual) Eosinophils # (Manual) D-Dimer Heparin Anti-Xa Level ABG pH POC ABG pCO2 POC ABG pO2 ABG pO2 ABG HCO3 ABG O2 Saturation ABG Base Excess ABG Hemoglobin ABG Oxyhemoglobin VBG pH ABG Sodium ABG Potassium ABG Glucose Oxyhemoglobin Sodium Potassium Chloride Carbon Dioxide BUN Creatinine Glucose POC Glucose 119 H 126 H 117 H Lactic Acid Calcium Ferritin AST Alkaline Phosphatase Magnesium Lactate Dehydrogenase Total Creatine Kinase CK-MB (CK-2) C-Reactive Protein Total Protein Albumin Troponin T HDL Cholesterol Arterial Blood Glucose Urine WBC (Auto) Urine Creatinine Urine Total Protein Phenytoin Coronavirus (PCR) Crossmatch 06/12/20 06/12/20 06/12/20 02:46 02:46 05:46 WBC 13.2 H RBC 2.83 L Hgb 8.3 L Hct 24.3 L MCHC RDW 16.6 H Lymph % (Auto) 6.2 L [place] % (Auto) 9.5 H Eos % (Auto) Lymph # 0.8 L [place] # 1.3 H Lymph # (Auto) [place] # (Auto) Eos # (Auto) Seg Neutrophils % 81.9 H Seg Neuts % (Manual) Lymphocytes % (Manual) Seg Neutrophils # 10.9 H Seg Neutrophils # Man Lymphocytes # (Manual) Monocytes % (Manual) Eosinophils % (Manual) Monocytes # (Manual) Eosinophils # (Manual) D-Dimer Heparin Anti-Xa Level ABG pH POC ABG pCO2 POC ABG pO2 ABG pO2 ABG HCO3 ABG O2 Saturation ABG Base Excess ABG Hemoglobin ABG Oxyhemoglobin VBG pH ABG Sodium ABG Potassium ABG Glucose Oxyhemoglobin Sodium Potassium 3.5 L Chloride Carbon Dioxide BUN 77 H Creatinine 1.3 H Glucose POC Glucose 132 H Lactic Acid Calcium 8.3 L Ferritin AST Alkaline Phosphatase Magnesium Lactate Dehydrogenase Total Creatine Kinase CK-MB (CK-2) C-Reactive Protein Total Protein Albumin Troponin T HDL Cholesterol Arterial Blood Glucose Urine WBC (Auto) Urine Creatinine Urine Total Protein Phenytoin Coronavirus (PCR) Crossmatch 06/12/20 06/12/20 06/12/20 09:20 12:16 17:48 WBC RBC Hgb Hct MCHC RDW Lymph % (Auto) [place] % (Auto) Eos % (Auto) Lymph # [place] # Lymph # (Auto) [place] # (Auto) Eos # (Auto) Seg Neutrophils % Seg Neuts % (Manual) Lymphocytes % (Manual) Seg Neutrophils # Seg Neutrophils # Man Lymphocytes # (Manual) Monocytes % (Manual) Eosinophils % (Manual) Monocytes # (Manual) Eosinophils # (Manual) D-Dimer Heparin Anti-Xa Level ABG pH POC ABG pCO2 POC ABG pO2 ABG pO2 91.1 H ABG HCO3 ABG O2 Saturation ABG Base Excess ABG Hemoglobin ABG Oxyhemoglobin VBG pH ABG Sodium ABG Potassium ABG Glucose Oxyhemoglobin 94.8 L Sodium Potassium Chloride Carbon Dioxide BUN Creatinine Glucose POC Glucose 167 H 182 H Lactic Acid Calcium Ferritin AST Alkaline Phosphatase Magnesium Lactate Dehydrogenase Total Creatine Kinase CK-MB (CK-2) C-Reactive Protein Total Protein Albumin Troponin T HDL Cholesterol Arterial Blood Glucose Urine WBC (Auto) Urine Creatinine Urine Total Protein Phenytoin Coronavirus (PCR) Crossmatch 06/13/20 06/13/20 06/13/20 00:08 05:37 09:09 WBC RBC Hgb Hct MCHC RDW Lymph % (Auto) [place] % (Auto) Eos % (Auto) Lymph # [place] # Lymph # (Auto) [place] # (Auto) Eos # (Auto) Seg Neutrophils % Seg Neuts % (Manual) Lymphocytes % (Manual) Seg Neutrophils # Seg Neutrophils # Man Lymphocytes # (Manual) Monocytes % (Manual) Eosinophils % (Manual) Monocytes # (Manual) Eosinophils # (Manual) D-Dimer Heparin Anti-Xa Level 0.86 H ABG pH POC ABG pCO2 POC ABG pO2 ABG pO2 ABG HCO3 ABG O2 Saturation ABG Base Excess ABG Hemoglobin ABG Oxyhemoglobin VBG pH ABG Sodium ABG Potassium ABG Glucose Oxyhemoglobin Sodium Potassium Chloride Carbon Dioxide BUN Creatinine Glucose POC Glucose 142 H 119 H Lactic Acid Calcium Ferritin AST Alkaline Phosphatase Magnesium Lactate Dehydrogenase Total Creatine Kinase CK-MB (CK-2) C-Reactive Protein Total Protein Albumin Troponin T HDL Cholesterol Arterial Blood Glucose Urine WBC (Auto) Urine Creatinine Urine Total Protein Phenytoin Coronavirus (PCR) Crossmatch 06/13/20 06/13/20 06/13/20 12:28 17:55 21:17 WBC RBC Hgb Hct MCHC RDW Lymph % (Auto) [place] % (Auto) Eos % (Auto) Lymph # [place] # Lymph # (Auto) [place] # (Auto) Eos # (Auto) Seg Neutrophils % Seg Neuts % (Manual) Lymphocytes % (Manual) Seg Neutrophils # Seg Neutrophils # Man Lymphocytes # (Manual) Monocytes % (Manual) Eosinophils % (Manual) Monocytes # (Manual) Eosinophils # (Manual) D-Dimer Heparin Anti-Xa Level ABG pH POC ABG pCO2 POC ABG pO2 ABG pO2 ABG HCO3 ABG O2 Saturation ABG Base Excess ABG Hemoglobin ABG Oxyhemoglobin VBG pH ABG Sodium ABG Potassium ABG Glucose Oxyhemoglobin Sodium Potassium Chloride Carbon Dioxide BUN 61 H Creatinine Glucose 131 H POC Glucose 165 H 174 H Lactic Acid Calcium Ferritin AST Alkaline Phosphatase Magnesium Lactate Dehydrogenase Total Creatine Kinase CK-MB (CK-2) C-Reactive Protein Total Protein Albumin Troponin T HDL Cholesterol Arterial Blood Glucose Urine WBC (Auto) Urine Creatinine Urine Total Protein Phenytoin Coronavirus (PCR) Crossmatch 06/13/20 06/13/20 06/14/20 21:17 23:50 05:34 WBC RBC Hgb Hct MCHC RDW Lymph % (Auto) [place] % (Auto) Eos % (Auto) Lymph # [place] # Lymph # (Auto) [place] # (Auto) Eos # (Auto) Seg Neutrophils % Seg Neuts % (Manual) Lymphocytes % (Manual) Seg Neutrophils # Seg Neutrophils # Man Lymphocytes # (Manual) Monocytes % (Manual) Eosinophils % (Manual) Monocytes # (Manual) Eosinophils # (Manual) D-Dimer Heparin Anti-Xa Level 0.72 H ABG pH POC ABG pCO2 POC ABG pO2 ABG pO2 ABG HCO3 ABG O2 Saturation ABG Base Excess ABG Hemoglobin ABG Oxyhemoglobin VBG pH ABG Sodium ABG Potassium ABG Glucose Oxyhemoglobin Sodium 146 H Potassium Chloride 107.6 H Carbon Dioxide BUN 61 H Creatinine 1.3 H Glucose 135 H POC Glucose 146 H Lactic Acid Calcium Ferritin AST Alkaline Phosphatase Magnesium Lactate Dehydrogenase Total Creatine Kinase CK-MB (CK-2) C-Reactive Protein Total Protein Albumin Troponin T HDL Cholesterol Arterial Blood Glucose Urine WBC (Auto) Urine Creatinine Urine Total Protein Phenytoin Coronavirus (PCR) Crossmatch 06/14/20 06/14/20 06/14/20 06:11 09:28 11:30 WBC RBC Hgb Hct MCHC RDW Lymph % (Auto) [place] % (Auto) Eos % (Auto) Lymph # [place] # Lymph # (Auto) [place] # (Auto) Eos # (Auto) Seg Neutrophils % Seg Neuts % (Manual) Lymphocytes % (Manual) Seg Neutrophils # Seg Neutrophils # Man Lymphocytes # (Manual) Monocytes % (Manual) Eosinophils % (Manual) Monocytes # (Manual) Eosinophils # (Manual) D-Dimer Heparin Anti-Xa Level 0.90 H ABG pH POC ABG pCO2 POC ABG pO2 ABG pO2 ABG HCO3 ABG O2 Saturation ABG Base Excess ABG Hemoglobin ABG Oxyhemoglobin VBG pH ABG Sodium ABG Potassium ABG Glucose Oxyhemoglobin Sodium Potassium Chloride Carbon Dioxide BUN Creatinine Glucose POC Glucose 141 H 186 H Lactic Acid Calcium Ferritin AST Alkaline Phosphatase Magnesium Lactate Dehydrogenase Total Creatine Kinase CK-MB (CK-2) C-Reactive Protein Total Protein Albumin Troponin T HDL Cholesterol Arterial Blood Glucose Urine WBC (Auto) Urine Creatinine Urine Total Protein Phenytoin Coronavirus (PCR) Crossmatch 06/14/20 06/14/20 06/14/20 16:07 18:16 23:51 WBC RBC Hgb Hct MCHC RDW Lymph % (Auto) [place] % (Auto) Eos % (Auto) Lymph # [place] # Lymph # (Auto) [place] # (Auto) Eos # (Auto) Seg Neutrophils % Seg Neuts % (Manual) Lymphocytes % (Manual) Seg Neutrophils # Seg Neutrophils # Man Lymphocytes # (Manual) Monocytes % (Manual) Eosinophils % (Manual) Monocytes # (Manual) Eosinophils # (Manual) D-Dimer Heparin Anti-Xa Level 0.82 H ABG pH POC ABG pCO2 POC ABG pO2 ABG pO2 ABG HCO3 ABG O2 Saturation ABG Base Excess ABG Hemoglobin ABG Oxyhemoglobin VBG pH ABG Sodium ABG Potassium ABG Glucose Oxyhemoglobin Sodium Potassium Chloride Carbon Dioxide BUN Creatinine Glucose POC Glucose 106 H 154 H Lactic Acid Calcium Ferritin AST Alkaline Phosphatase Magnesium Lactate Dehydrogenase Total Creatine Kinase CK-MB (CK-2) C-Reactive Protein Total Protein Albumin Troponin T HDL Cholesterol Arterial Blood Glucose Urine WBC (Auto) Urine Creatinine Urine Total Protein Phenytoin Coronavirus (PCR) Crossmatch 06/15/20 06/15/20 06/15/20 04:24 04:24 05:59 WBC RBC 2.75 L Hgb 7.9 L Hct 24.0 L MCHC RDW 16.4 H Lymph % (Auto) 12.9 L [place] % (Auto) 8.7 H Eos % (Auto) 4.6 H Lymph # 1.1 L [place] # Lymph # (Auto) [place] # (Auto) Eos # (Auto) Seg Neutrophils % 73.2 H Seg Neuts % (Manual) Lymphocytes % (Manual) Seg Neutrophils # Seg Neutrophils # Man Lymphocytes # (Manual) Monocytes % (Manual) Eosinophils % (Manual) Monocytes # (Manual) Eosinophils # (Manual) D-Dimer Heparin Anti-Xa Level ABG pH POC ABG pCO2 POC ABG pO2 ABG pO2 ABG HCO3 ABG O2 Saturation ABG Base Excess ABG Hemoglobin ABG Oxyhemoglobin VBG pH ABG Sodium ABG Potassium ABG Glucose Oxyhemoglobin Sodium Potassium 3.4 L Chloride Carbon Dioxide BUN 55 H Creatinine 1.3 H Glucose 142 H POC Glucose 131 H Lactic Acid Calcium Ferritin AST Alkaline Phosphatase Magnesium Lactate Dehydrogenase Total Creatine Kinase CK-MB (CK-2) C-Reactive Protein Total Protein Albumin Troponin T HDL Cholesterol Arterial Blood Glucose Urine WBC (Auto) Urine Creatinine Urine Total Protein Phenytoin Coronavirus (PCR) Crossmatch 06/15/20 06/15/20 06/16/20 12:33 17:07 00:22 WBC RBC Hgb Hct MCHC RDW Lymph % (Auto) [place] % (Auto) Eos % (Auto) Lymph # [place] # Lymph # (Auto) [place] # (Auto) Eos # (Auto) Seg Neutrophils % Seg Neuts % (Manual) Lymphocytes % (Manual) Seg Neutrophils # Seg Neutrophils # Man Lymphocytes # (Manual) Monocytes % (Manual) Eosinophils % (Manual) Monocytes # (Manual) Eosinophils # (Manual) D-Dimer Heparin Anti-Xa Level 0.21 L ABG pH POC ABG pCO2 POC ABG pO2 ABG pO2 ABG HCO3 ABG O2 Saturation ABG Base Excess ABG Hemoglobin ABG Oxyhemoglobin VBG pH ABG Sodium ABG Potassium ABG Glucose Oxyhemoglobin Sodium Potassium Chloride Carbon Dioxide BUN Creatinine Glucose POC Glucose 180 H 185 H Lactic Acid Calcium Ferritin AST Alkaline Phosphatase Magnesium Lactate Dehydrogenase Total Creatine Kinase CK-MB (CK-2) C-Reactive Protein Total Protein Albumin Troponin T HDL Cholesterol Arterial Blood Glucose Urine WBC (Auto) Urine Creatinine Urine Total Protein Phenytoin Coronavirus (PCR) Crossmatch 06/16/20 06/16/20 06/16/20 01:45 08:06 09:15 WBC RBC Hgb Hct MCHC RDW Lymph % (Auto) [place] % (Auto) Eos % (Auto) Lymph # [place] # Lymph # (Auto) [place] # (Auto) Eos # (Auto) Seg Neutrophils % Seg Neuts % (Manual) Lymphocytes % (Manual) Seg Neutrophils # Seg Neutrophils # Man Lymphocytes # (Manual) Monocytes % (Manual) Eosinophils % (Manual) Monocytes # (Manual) Eosinophils # (Manual) D-Dimer Heparin Anti-Xa Level ABG pH POC ABG pCO2 POC ABG pO2 ABG pO2 ABG HCO3 ABG O2 Saturation ABG Base Excess ABG Hemoglobin ABG Oxyhemoglobin VBG pH ABG Sodium ABG Potassium ABG Glucose Oxyhemoglobin Sodium Potassium Chloride Carbon Dioxide BUN 49 H Creatinine Glucose 154 H POC Glucose 140 H 171 H Lactic Acid Calcium Ferritin AST Alkaline Phosphatase Magnesium Lactate Dehydrogenase Total Creatine Kinase CK-MB (CK-2) C-Reactive Protein Total Protein Albumin Troponin T HDL Cholesterol Arterial Blood Glucose Urine WBC (Auto) Urine Creatinine Urine Total Protein Phenytoin Coronavirus (PCR) Crossmatch 06/16/20 06/16/20 06/16/20 10:46 12:33 17:54 WBC RBC Hgb Hct MCHC RDW Lymph % (Auto) [place] % (Auto) Eos % (Auto) Lymph # [place] # Lymph # (Auto) [place] # (Auto) Eos # (Auto) Seg Neutrophils % Seg Neuts % (Manual) Lymphocytes % (Manual) Seg Neutrophils # Seg Neutrophils # Man Lymphocytes # (Manual) Monocytes % (Manual) Eosinophils % (Manual) Monocytes # (Manual) Eosinophils # (Manual) D-Dimer Heparin Anti-Xa Level 0.12 L ABG pH POC ABG pCO2 POC ABG pO2 ABG pO2 ABG HCO3 ABG O2 Saturation ABG Base Excess ABG Hemoglobin ABG Oxyhemoglobin VBG pH ABG Sodium ABG Potassium ABG Glucose Oxyhemoglobin Sodium Potassium Chloride Carbon Dioxide BUN Creatinine Glucose POC Glucose 166 H 151 H Lactic Acid Calcium Ferritin AST Alkaline Phosphatase Magnesium Lactate Dehydrogenase Total Creatine Kinase CK-MB (CK-2) C-Reactive Protein Total Protein Albumin Troponin T HDL Cholesterol Arterial Blood Glucose Urine WBC (Auto) Urine Creatinine Urine Total Protein Phenytoin Coronavirus (PCR) Crossmatch 06/16/20 06/17/20 06/17/20 18:47 00:00 02:19 WBC RBC Hgb Hct MCHC RDW Lymph % (Auto) [place] % (Auto) Eos % (Auto) Lymph # [place] # Lymph # (Auto) [place] # (Auto) Eos # (Auto) Seg Neutrophils % Seg Neuts % (Manual) Lymphocytes % (Manual) Seg Neutrophils # Seg Neutrophils # Man Lymphocytes # (Manual) Monocytes % (Manual) Eosinophils % (Manual) Monocytes # (Manual) Eosinophils # (Manual) D-Dimer Heparin Anti-Xa Level 0.73 H 0.77 H ABG pH POC ABG pCO2 POC ABG pO2 ABG pO2 ABG HCO3 ABG O2 Saturation ABG Base Excess ABG Hemoglobin ABG Oxyhemoglobin VBG pH ABG Sodium ABG Potassium ABG Glucose Oxyhemoglobin Sodium Potassium Chloride Carbon Dioxide BUN Creatinine Glucose POC Glucose 139 H Lactic Acid Calcium Ferritin AST Alkaline Phosphatase Magnesium Lactate Dehydrogenase Total Creatine Kinase CK-MB (CK-2) C-Reactive Protein Total Protein Albumin Troponin T HDL Cholesterol Arterial Blood Glucose Urine WBC (Auto) Urine Creatinine Urine Total Protein Phenytoin Coronavirus (PCR) Crossmatch 06/17/20 06/17/20 06/17/20 06:07 11:42 16:43 WBC RBC Hgb Hct MCHC RDW Lymph % (Auto) [place] % (Auto) Eos % (Auto) Lymph # [place] # Lymph # (Auto) [place] # (Auto) Eos # (Auto) Seg Neutrophils % Seg Neuts % (Manual) Lymphocytes % (Manual) Seg Neutrophils # Seg Neutrophils # Man Lymphocytes # (Manual) Monocytes % (Manual) Eosinophils % (Manual) Monocytes # (Manual) Eosinophils # (Manual) D-Dimer Heparin Anti-Xa Level 0.73 H ABG pH POC ABG pCO2 POC ABG pO2 ABG pO2 ABG HCO3 ABG O2 Saturation ABG Base Excess ABG Hemoglobin ABG Oxyhemoglobin VBG pH ABG Sodium ABG Potassium ABG Glucose Oxyhemoglobin Sodium Potassium Chloride Carbon Dioxide BUN Creatinine Glucose POC Glucose 169 H 169 H Lactic Acid Calcium Ferritin AST Alkaline Phosphatase Magnesium Lactate Dehydrogenase Total Creatine Kinase CK-MB (CK-2) C-Reactive Protein Total Protein Albumin Troponin T HDL Cholesterol Arterial Blood Glucose Urine WBC (Auto) Urine Creatinine Urine Total Protein Phenytoin Coronavirus (PCR) Crossmatch 06/17/20 06/17/20 06/17/20 18:18 23:08 23:16 WBC RBC Hgb Hct MCHC RDW Lymph % (Auto) [place] % (Auto) Eos % (Auto) Lymph # [place] # Lymph # (Auto) [place] # (Auto) Eos # (Auto) Seg Neutrophils % Seg Neuts % (Manual) Lymphocytes % (Manual) Seg Neutrophils # Seg Neutrophils # Man Lymphocytes # (Manual) Monocytes % (Manual) Eosinophils % (Manual) Monocytes # (Manual) Eosinophils # (Manual) D-Dimer Heparin Anti-Xa Level 0.71 H ABG pH POC ABG pCO2 POC ABG pO2 ABG pO2 ABG HCO3 ABG O2 Saturation ABG Base Excess ABG Hemoglobin ABG Oxyhemoglobin VBG pH ABG Sodium ABG Potassium ABG Glucose Oxyhemoglobin Sodium Potassium Chloride Carbon Dioxide BUN Creatinine Glucose POC Glucose 159 H 134 H Lactic Acid Calcium Ferritin AST Alkaline Phosphatase Magnesium Lactate Dehydrogenase Total Creatine Kinase CK-MB (CK-2) C-Reactive Protein Total Protein Albumin Troponin T HDL Cholesterol Arterial Blood Glucose Urine WBC (Auto) Urine Creatinine Urine Total Protein Phenytoin Coronavirus (PCR) Crossmatch 06/18/20 06/18/20 06/18/20 04:42 05:52 11:50 WBC RBC Hgb Hct MCHC RDW Lymph % (Auto) [place] % (Auto) Eos % (Auto) Lymph # [place] # Lymph # (Auto) [place] # (Auto) Eos # (Auto) Seg Neutrophils % Seg Neuts % (Manual) Lymphocytes % (Manual) Seg Neutrophils # Seg Neutrophils # Man Lymphocytes # (Manual) Monocytes % (Manual) Eosinophils % (Manual) Monocytes # (Manual) Eosinophils # (Manual) D-Dimer Heparin Anti-Xa Level ABG pH POC ABG pCO2 POC ABG pO2 ABG pO2 ABG HCO3 ABG O2 Saturation ABG Base Excess ABG Hemoglobin ABG Oxyhemoglobin VBG pH ABG Sodium ABG Potassium ABG Glucose Oxyhemoglobin Sodium Potassium Chloride Carbon Dioxide BUN 44 H Creatinine Glucose 115 H POC Glucose 171 H 167 H Lactic Acid Calcium Ferritin AST Alkaline Phosphatase Magnesium Lactate Dehydrogenase Total Creatine Kinase CK-MB (CK-2) C-Reactive Protein Total Protein Albumin Troponin T HDL Cholesterol Arterial Blood Glucose Urine WBC (Auto) Urine Creatinine Urine Total Protein Phenytoin Coronavirus (PCR) Crossmatch 06/18/20 06/19/20 06/19/20 23:46 05:48 07:52 WBC RBC Hgb Hct MCHC RDW Lymph % (Auto) [place] % (Auto) Eos % (Auto) Lymph # [place] # Lymph # (Auto) [place] # (Auto) Eos # (Auto) Seg Neutrophils % Seg Neuts % (Manual) Lymphocytes % (Manual) Seg Neutrophils # Seg Neutrophils # Man Lymphocytes # (Manual) Monocytes % (Manual) Eosinophils % (Manual) Monocytes # (Manual) Eosinophils # (Manual) D-Dimer Heparin Anti-Xa Level ABG pH POC ABG pCO2 POC ABG pO2 ABG pO2 ABG HCO3 ABG O2 Saturation ABG Base Excess ABG Hemoglobin ABG Oxyhemoglobin VBG pH ABG Sodium ABG Potassium ABG Glucose Oxyhemoglobin Sodium Potassium Chloride Carbon Dioxide BUN Creatinine Glucose POC Glucose 130 H 207 H 175 H Lactic Acid Calcium Ferritin AST Alkaline Phosphatase Magnesium Lactate Dehydrogenase Total Creatine Kinase CK-MB (CK-2) C-Reactive Protein Total Protein Albumin Troponin T HDL Cholesterol Arterial Blood Glucose Urine WBC (Auto) Urine Creatinine Urine Total Protein Phenytoin Coronavirus (PCR) Crossmatch 06/19/20 06/19/20 06/20/20 11:42 22:54 05:17 WBC RBC Hgb Hct MCHC RDW Lymph % (Auto) [place] % (Auto) Eos % (Auto) Lymph # [place] # Lymph # (Auto) [place] # (Auto) Eos # (Auto) Seg Neutrophils % Seg Neuts % (Manual) Lymphocytes % (Manual) Seg Neutrophils # Seg Neutrophils # Man Lymphocytes # (Manual) Monocytes % (Manual) Eosinophils % (Manual) Monocytes # (Manual) Eosinophils # (Manual) D-Dimer Heparin Anti-Xa Level ABG pH POC ABG pCO2 POC ABG pO2 ABG pO2 ABG HCO3 ABG O2 Saturation ABG Base Excess ABG Hemoglobin ABG Oxyhemoglobin VBG pH ABG Sodium ABG Potassium ABG Glucose Oxyhemoglobin Sodium Potassium Chloride Carbon Dioxide BUN Creatinine Glucose POC Glucose 166 H 135 H 218 H Lactic Acid Calcium Ferritin AST Alkaline Phosphatase Magnesium Lactate Dehydrogenase Total Creatine Kinase CK-MB (CK-2) C-Reactive Protein Total Protein Albumin Troponin T HDL Cholesterol Arterial Blood Glucose Urine WBC (Auto) Urine Creatinine Urine Total Protein Phenytoin Coronavirus (PCR) Crossmatch 06/20/20 06/20/20 06/20/20 12:04 16:25 16:35 WBC RBC Hgb Hct MCHC RDW Lymph % (Auto) [place] % (Auto) Eos % (Auto) Lymph # [place] # Lymph # (Auto) [place] # (Auto) Eos # (Auto) Seg Neutrophils % Seg Neuts % (Manual) Lymphocytes % (Manual) Seg Neutrophils # Seg Neutrophils # Man Lymphocytes # (Manual) Monocytes % (Manual) Eosinophils % (Manual) Monocytes # (Manual) Eosinophils # (Manual) D-Dimer Heparin Anti-Xa Level ABG pH POC ABG pCO2 POC ABG pO2 ABG pO2 59.6 L ABG HCO3 28.7 H ABG O2 Saturation 93.5 L ABG Base Excess 3.4 H ABG Hemoglobin 7.2 L ABG Oxyhemoglobin VBG pH ABG Sodium ABG Potassium ABG Glucose Oxyhemoglobin 91.3 L Sodium Potassium Chloride Carbon Dioxide BUN Creatinine Glucose POC Glucose 194 H 137 H Lactic Acid Calcium Ferritin AST Alkaline Phosphatase Magnesium Lactate Dehydrogenase Total Creatine Kinase CK-MB (CK-2) C-Reactive Protein Total Protein Albumin Troponin T HDL Cholesterol Arterial Blood Glucose Urine WBC (Auto) Urine Creatinine Urine Total Protein Phenytoin Coronavirus (PCR) Crossmatch 06/20/20 06/21/20 06/21/20 23:59 06:25 12:01 WBC RBC Hgb Hct MCHC RDW Lymph % (Auto) [place] % (Auto) Eos % (Auto) Lymph # [place] # Lymph # (Auto) [place] # (Auto) Eos # (Auto) Seg Neutrophils % Seg Neuts % (Manual) Lymphocytes % (Manual) Seg Neutrophils # Seg Neutrophils # Man Lymphocytes # (Manual) Monocytes % (Manual) Eosinophils % (Manual) Monocytes # (Manual) Eosinophils # (Manual) D-Dimer Heparin Anti-Xa Level ABG pH POC ABG pCO2 POC ABG pO2 ABG pO2 ABG HCO3 ABG O2 Saturation ABG Base Excess ABG Hemoglobin ABG Oxyhemoglobin VBG pH ABG Sodium ABG Potassium ABG Glucose Oxyhemoglobin Sodium Potassium Chloride Carbon Dioxide BUN Creatinine Glucose POC Glucose 156 H 177 H 195 H Lactic Acid Calcium Ferritin AST Alkaline Phosphatase Magnesium Lactate Dehydrogenase Total Creatine Kinase CK-MB (CK-2) C-Reactive Protein Total Protein Albumin Troponin T HDL Cholesterol Arterial Blood Glucose Urine WBC (Auto) Urine Creatinine Urine Total Protein Phenytoin Coronavirus (PCR) Crossmatch 06/21/20 06/21/20 06/22/20 17:04 21:51 05:06 WBC RBC Hgb Hct MCHC RDW Lymph % (Auto) [place] % (Auto) Eos % (Auto) Lymph # [place] # Lymph # (Auto) [place] # (Auto) Eos # (Auto) Seg Neutrophils % Seg Neuts % (Manual) Lymphocytes % (Manual) Seg Neutrophils # Seg Neutrophils # Man Lymphocytes # (Manual) Monocytes % (Manual) Eosinophils % (Manual) Monocytes # (Manual) Eosinophils # (Manual) D-Dimer Heparin Anti-Xa Level ABG pH POC ABG pCO2 POC ABG pO2 ABG pO2 ABG HCO3 ABG O2 Saturation ABG Base Excess ABG Hemoglobin ABG Oxyhemoglobin VBG pH ABG Sodium ABG Potassium ABG Glucose Oxyhemoglobin Sodium Potassium Chloride Carbon Dioxide BUN Creatinine Glucose POC Glucose 156 H 154 H 167 H Lactic Acid Calcium Ferritin AST Alkaline Phosphatase Magnesium Lactate Dehydrogenase Total Creatine Kinase CK-MB (CK-2) C-Reactive Protein Total Protein Albumin Troponin T HDL Cholesterol Arterial Blood Glucose Urine WBC (Auto) Urine Creatinine Urine Total Protein Phenytoin Coronavirus (PCR) Crossmatch 06/22/20 06/22/20 06/22/20 11:20 15:27 16:58 WBC RBC Hgb Hct MCHC RDW Lymph % (Auto) [place] % (Auto) Eos % (Auto) Lymph # [place] # Lymph # (Auto) [place] # (Auto) Eos # (Auto) Seg Neutrophils % Seg Neuts % (Manual) Lymphocytes % (Manual) Seg Neutrophils # Seg Neutrophils # Man Lymphocytes # (Manual) Monocytes % (Manual) Eosinophils % (Manual) Monocytes # (Manual) Eosinophils # (Manual) D-Dimer Heparin Anti-Xa Level ABG pH 7.206 L POC ABG pCO2 79.9 H POC ABG pO2 ABG pO2 ABG HCO3 ABG O2 Saturation ABG Base Excess ABG Hemoglobin 8.3 L ABG Oxyhemoglobin VBG pH ABG Sodium ABG Potassium ABG Glucose Oxyhemoglobin Sodium Potassium Chloride Carbon Dioxide BUN Creatinine Glucose POC Glucose 181 H 230 H Lactic Acid Calcium Ferritin AST Alkaline Phosphatase Magnesium Lactate Dehydrogenase Total Creatine Kinase CK-MB (CK-2) C-Reactive Protein Total Protein Albumin Troponin T HDL Cholesterol Arterial Blood Glucose Urine WBC (Auto) Urine Creatinine Urine Total Protein Phenytoin Coronavirus (PCR) Crossmatch 06/22/20 06/23/20 06/23/20 22:26 05:49 05:49 WBC RBC 2.58 L Hgb 7.4 L Hct 23.2 L MCHC RDW 17.0 H Lymph % (Auto) [place] % (Auto) 11.2 H Eos % (Auto) Lymph # 1.0 L [place] # Lymph # (Auto) [place] # (Auto) Eos # (Auto) Seg Neutrophils % Seg Neuts % (Manual) Lymphocytes % (Manual) Seg Neutrophils # Seg Neutrophils # Man Lymphocytes # (Manual) Monocytes % (Manual) Eosinophils % (Manual) Monocytes # (Manual) Eosinophils # (Manual) D-Dimer Heparin Anti-Xa Level ABG pH POC ABG pCO2 POC ABG pO2 ABG pO2 ABG HCO3 ABG O2 Saturation ABG Base Excess ABG Hemoglobin ABG Oxyhemoglobin VBG pH ABG Sodium ABG Potassium ABG Glucose Oxyhemoglobin Sodium Potassium Chloride Carbon Dioxide BUN 68 H Creatinine 2.4 H Glucose 198 H POC Glucose 195 H Lactic Acid Calcium Ferritin AST Alkaline Phosphatase Magnesium Lactate Dehydrogenase Total Creatine Kinase CK-MB (CK-2) C-Reactive Protein Total Protein Albumin Troponin T HDL Cholesterol Arterial Blood Glucose Urine WBC (Auto) Urine Creatinine Urine Total Protein Phenytoin Coronavirus (PCR) Crossmatch 06/23/20 06/23/20 06/23/20 05:50 12:29 12:34 WBC RBC Hgb Hct MCHC RDW Lymph % (Auto) [place] % (Auto) Eos % (Auto) Lymph # [place] # Lymph # (Auto) [place] # (Auto) Eos # (Auto) Seg Neutrophils % Seg Neuts % (Manual) Lymphocytes % (Manual) Seg Neutrophils # Seg Neutrophils # Man Lymphocytes # (Manual) Monocytes % (Manual) Eosinophils % (Manual) Monocytes # (Manual) Eosinophils # (Manual) D-Dimer Heparin Anti-Xa Level ABG pH POC ABG pCO2 54.7 H POC ABG pO2 68.8 L ABG pO2 ABG HCO3 ABG O2 Saturation ABG Base Excess ABG Hemoglobin 9.8 L ABG Oxyhemoglobin 92.6 L VBG pH ABG Sodium ABG Potassium ABG Glucose Oxyhemoglobin Sodium Potassium Chloride Carbon Dioxide BUN Creatinine Glucose POC Glucose 202 H 218 H Lactic Acid Calcium Ferritin AST Alkaline Phosphatase Magnesium Lactate Dehydrogenase Total Creatine Kinase CK-MB (CK-2) C-Reactive Protein Total Protein Albumin Troponin T HDL Cholesterol Arterial Blood Glucose Urine WBC (Auto) Urine Creatinine Urine Total Protein Phenytoin Coronavirus (PCR) Crossmatch 06/23/20 06/23/20 06/24/20 16:02 22:22 01:06 WBC RBC Hgb Hct MCHC RDW Lymph % (Auto) [place] % (Auto) Eos % (Auto) Lymph # [place] # Lymph # (Auto) [place] # (Auto) Eos # (Auto) Seg Neutrophils % Seg Neuts % (Manual) Lymphocytes % (Manual) Seg Neutrophils # Seg Neutrophils # Man Lymphocytes # (Manual) Monocytes % (Manual) Eosinophils % (Manual) Monocytes # (Manual) Eosinophils # (Manual) D-Dimer Heparin Anti-Xa Level ABG pH POC ABG pCO2 POC ABG pO2 ABG pO2 ABG HCO3 ABG O2 Saturation ABG Base Excess ABG Hemoglobin ABG Oxyhemoglobin VBG pH ABG Sodium ABG Potassium ABG Glucose Oxyhemoglobin Sodium Potassium Chloride Carbon Dioxide BUN Creatinine Glucose POC Glucose 190 H 166 H 171 H Lactic Acid Calcium Ferritin AST Alkaline Phosphatase Magnesium Lactate Dehydrogenase Total Creatine Kinase CK-MB (CK-2) C-Reactive Protein Total Protein Albumin Troponin T HDL Cholesterol Arterial Blood Glucose Urine WBC (Auto) Urine Creatinine Urine Total Protein Phenytoin Coronavirus (PCR) Crossmatch 06/24/20 06/24/20 06/24/20 04:48 05:35 11:48 WBC RBC Hgb Hct MCHC RDW Lymph % (Auto) [place] % (Auto) Eos % (Auto) Lymph # [place] # Lymph # (Auto) [place] # (Auto) Eos # (Auto) Seg Neutrophils % Seg Neuts % (Manual) Lymphocytes % (Manual) Seg Neutrophils # Seg Neutrophils # Man Lymphocytes # (Manual) Monocytes % (Manual) Eosinophils % (Manual) Monocytes # (Manual) Eosinophils # (Manual) D-Dimer Heparin Anti-Xa Level ABG pH POC ABG pCO2 POC ABG pO2 ABG pO2 ABG HCO3 ABG O2 Saturation ABG Base Excess ABG Hemoglobin ABG Oxyhemoglobin VBG pH ABG Sodium ABG Potassium ABG Glucose Oxyhemoglobin Sodium Potassium Chloride Carbon Dioxide BUN 75 H Creatinine 2.6 H Glucose 179 H POC Glucose 172 H 153 H Lactic Acid Calcium Ferritin AST Alkaline Phosphatase Magnesium Lactate Dehydrogenase Total Creatine Kinase CK-MB (CK-2) C-Reactive Protein Total Protein Albumin Troponin T HDL Cholesterol Arterial Blood Glucose Urine WBC (Auto) Urine Creatinine Urine Total Protein Phenytoin Coronavirus (PCR) Crossmatch 06/24/20 06/24/20 06/25/20 16:38 21:52 12:00 WBC RBC Hgb Hct MCHC RDW Lymph % (Auto) [place] % (Auto) Eos % (Auto) Lymph # [place] # Lymph # (Auto) [place] # (Auto) Eos # (Auto) Seg Neutrophils % Seg Neuts % (Manual) Lymphocytes % (Manual) Seg Neutrophils # Seg Neutrophils # Man Lymphocytes # (Manual) Monocytes % (Manual) Eosinophils % (Manual) Monocytes # (Manual) Eosinophils # (Manual) D-Dimer Heparin Anti-Xa Level ABG pH POC ABG pCO2 POC ABG pO2 ABG pO2 ABG HCO3 ABG O2 Saturation ABG Base Excess ABG Hemoglobin ABG Oxyhemoglobin VBG pH ABG Sodium ABG Potassium ABG Glucose Oxyhemoglobin Sodium Potassium Chloride Carbon Dioxide BUN Creatinine Glucose POC Glucose 123 H 115 H 203 H Lactic Acid Calcium Ferritin AST Alkaline Phosphatase Magnesium Lactate Dehydrogenase Total Creatine Kinase CK-MB (CK-2) C-Reactive Protein Total Protein Albumin Troponin T HDL Cholesterol Arterial Blood Glucose Urine WBC (Auto) Urine Creatinine Urine Total Protein Phenytoin Coronavirus (PCR) Crossmatch 06/25/20 06/25/20 06/25/20 15:43 16:37 23:02 WBC RBC Hgb Hct MCHC RDW Lymph % (Auto) [place] % (Auto) Eos % (Auto) Lymph # [place] # Lymph # (Auto) [place] # (Auto) Eos # (Auto) Seg Neutrophils % Seg Neuts % (Manual) Lymphocytes % (Manual) Seg Neutrophils # Seg Neutrophils # Man Lymphocytes # (Manual) Monocytes % (Manual) Eosinophils % (Manual) Monocytes # (Manual) Eosinophils # (Manual) D-Dimer Heparin Anti-Xa Level ABG pH POC ABG pCO2 POC ABG pO2 ABG pO2 ABG HCO3 ABG O2 Saturation ABG Base Excess ABG Hemoglobin ABG Oxyhemoglobin VBG pH ABG Sodium ABG Potassium ABG Glucose Oxyhemoglobin Sodium Potassium Chloride Carbon Dioxide BUN 71 H Creatinine 1.8 H Glucose 170 H POC Glucose 191 H 126 H Lactic Acid Calcium 8.2 L Ferritin AST Alkaline Phosphatase Magnesium Lactate Dehydrogenase Total Creatine Kinase CK-MB (CK-2) C-Reactive Protein Total Protein Albumin Troponin T HDL Cholesterol Arterial Blood Glucose Urine WBC (Auto) Urine Creatinine Urine Total Protein Phenytoin Coronavirus (PCR) Crossmatch 06/26/20 06/26/20 06/26/20 06:34 06:34 09:27 WBC RBC 2.41 L Hgb 6.9 L Hct 21.5 L MCHC RDW 16.7 H Lymph % (Auto) 10.9 L [place] % (Auto) 9.6 H Eos % (Auto) Lymph # 0.7 L [place] # Lymph # (Auto) [place] # (Auto) Eos # (Auto) Seg Neutrophils % 75.4 H Seg Neuts % (Manual) Lymphocytes % (Manual) Seg Neutrophils # Seg Neutrophils # Man Lymphocytes # (Manual) Monocytes % (Manual) Eosinophils % (Manual) Monocytes # (Manual) Eosinophils # (Manual) D-Dimer Heparin Anti-Xa Level ABG pH POC ABG pCO2 POC ABG pO2 ABG pO2 ABG HCO3 ABG O2 Saturation ABG Base Excess ABG Hemoglobin ABG Oxyhemoglobin VBG pH ABG Sodium ABG Potassium ABG Glucose Oxyhemoglobin Sodium Potassium Chloride Carbon Dioxide BUN 77 H Creatinine 1.9 H Glucose 190 H POC Glucose Lactic Acid Calcium Ferritin AST Alkaline Phosphatase Magnesium Lactate Dehydrogenase Total Creatine Kinase CK-MB (CK-2) C-Reactive Protein Total Protein Albumin Troponin T HDL Cholesterol Arterial Blood Glucose Urine WBC (Auto) Urine Creatinine Urine Total Protein Phenytoin Coronavirus (PCR) Crossmatch See Detail 06/26/20 06/26/20 06/26/20 12:15 16:28 17:28 WBC RBC Hgb Hct MCHC RDW Lymph % (Auto) [place] % (Auto) Eos % (Auto) Lymph # [place] # Lymph # (Auto) [place] # (Auto) Eos # (Auto) Seg Neutrophils % Seg Neuts % (Manual) Lymphocytes % (Manual) Seg Neutrophils # Seg Neutrophils # Man Lymphocytes # (Manual) Monocytes % (Manual) Eosinophils % (Manual) Monocytes # (Manual) Eosinophils # (Manual) D-Dimer Heparin Anti-Xa Level ABG pH POC ABG pCO2 POC ABG pO2 ABG pO2 ABG HCO3 ABG O2 Saturation ABG Base Excess ABG Hemoglobin ABG Oxyhemoglobin VBG pH ABG Sodium ABG Potassium ABG Glucose Oxyhemoglobin Sodium Potassium Chloride Carbon Dioxide BUN Creatinine Glucose POC Glucose 187 H 149 H 189 H Lactic Acid Calcium Ferritin AST Alkaline Phosphatase Magnesium Lactate Dehydrogenase Total Creatine Kinase CK-MB (CK-2) C-Reactive Protein Total Protein Albumin Troponin T HDL Cholesterol Arterial Blood Glucose Urine WBC (Auto) Urine Creatinine Urine Total Protein Phenytoin Coronavirus (PCR) Crossmatch 06/26/20 06/26/20 06/26/20 18:30 18:30 18:30 WBC RBC 2.87 L Hgb 8.2 L Hct 25.9 L MCHC RDW 17.8 H Lymph % (Auto) [place] % (Auto) Eos % (Auto) Lymph # [place] # Lymph # (Auto) [place] # (Auto) Eos # (Auto) Seg Neutrophils % Seg Neuts % (Manual) 83.0 H Lymphocytes % (Manual) 8.0 L Seg Neutrophils # Seg Neutrophils # Man Lymphocytes # (Manual) 0.6 L Monocytes % (Manual) Eosinophils % (Manual) Monocytes # (Manual) Eosinophils # (Manual) D-Dimer Heparin Anti-Xa Level ABG pH POC ABG pCO2 POC ABG pO2 ABG pO2 ABG HCO3 ABG O2 Saturation ABG Base Excess ABG Hemoglobin ABG Oxyhemoglobin VBG pH ABG Sodium ABG Potassium ABG Glucose Oxyhemoglobin Sodium Potassium Chloride Carbon Dioxide BUN 80 H Creatinine 2.1 H Glucose 260 H POC Glucose Lactic Acid 4.30 H* Calcium 8.3 L Ferritin AST Alkaline Phosphatase Magnesium Lactate Dehydrogenase Total Creatine Kinase CK-MB (CK-2) C-Reactive Protein Total Protein Albumin Troponin T HDL Cholesterol Arterial Blood Glucose Urine WBC (Auto) Urine Creatinine Urine Total Protein Phenytoin Coronavirus (PCR) Crossmatch 06/26/20 06/27/20 06/27/20 18:50 01:00 04:29 WBC RBC Hgb Hct MCHC RDW Lymph % (Auto) [place] % (Auto) Eos % (Auto) Lymph # [place] # Lymph # (Auto) [place] # (Auto) Eos # (Auto) Seg Neutrophils % Seg Neuts % (Manual) Lymphocytes % (Manual) Seg Neutrophils # Seg Neutrophils # Man Lymphocytes # (Manual) Monocytes % (Manual) Eosinophils % (Manual) Monocytes # (Manual) Eosinophils # (Manual) D-Dimer Heparin Anti-Xa Level ABG pH 7.296 L POC ABG pCO2 POC ABG pO2 ABG pO2 116.5 H 200.5 H ABG HCO3 28.4 H ABG O2 Saturation 99.3 H ABG Base Excess 3.7 H ABG Hemoglobin 5.6 L ABG Oxyhemoglobin VBG pH ABG Sodium ABG Potassium ABG Glucose Oxyhemoglobin Sodium Potassium Chloride Carbon Dioxide BUN Creatinine Glucose POC Glucose 123 H Lactic Acid Calcium Ferritin AST Alkaline Phosphatase Magnesium Lactate Dehydrogenase Total Creatine Kinase CK-MB (CK-2) C-Reactive Protein Total Protein Albumin Troponin T HDL Cholesterol Arterial Blood Glucose Urine WBC (Auto) Urine Creatinine Urine Total Protein Phenytoin Coronavirus (PCR) Crossmatch 06/27/20 06/27/20 06/27/20 05:00 05:00 05:00 WBC RBC 2.75 L Hgb 7.9 L Hct 24.3 L MCHC RDW 17.1 H Lymph % (Auto) 8.5 L [place] % (Auto) 12.6 H Eos % (Auto) Lymph # 0.7 L [place] # 1.0 H Lymph # (Auto) [place] # (Auto) Eos # (Auto) Seg Neutrophils % 77.5 H Seg Neuts % (Manual) Lymphocytes % (Manual) Seg Neutrophils # Seg Neutrophils # Man Lymphocytes # (Manual) Monocytes % (Manual) Eosinophils % (Manual) Monocytes # (Manual) Eosinophils # (Manual) D-Dimer Heparin Anti-Xa Level ABG pH POC ABG pCO2 POC ABG pO2 ABG pO2 ABG HCO3 ABG O2 Saturation ABG Base Excess ABG Hemoglobin ABG Oxyhemoglobin VBG pH ABG Sodium ABG Potassium ABG Glucose Oxyhemoglobin Sodium Potassium Chloride Carbon Dioxide BUN 80 H Creatinine 2.0 H Glucose 129 H POC Glucose Lactic Acid 0.60 L Calcium 7.9 L Ferritin AST Alkaline Phosphatase Magnesium Lactate Dehydrogenase Total Creatine Kinase CK-MB (CK-2) C-Reactive Protein Total Protein Albumin Troponin T HDL Cholesterol Arterial Blood Glucose Urine WBC (Auto) Urine Creatinine Urine Total Protein Phenytoin Coronavirus (PCR) Crossmatch 06/27/20 06/27/20 06/27/20 05:23 13:46 17:25 WBC RBC Hgb Hct MCHC RDW Lymph % (Auto) [place] % (Auto) Eos % (Auto) Lymph # [place] # Lymph # (Auto) [place] # (Auto) Eos # (Auto) Seg Neutrophils % Seg Neuts % (Manual) Lymphocytes % (Manual) Seg Neutrophils # Seg Neutrophils # Man Lymphocytes # (Manual) Monocytes % (Manual) Eosinophils % (Manual) Monocytes # (Manual) Eosinophils # (Manual) D-Dimer Heparin Anti-Xa Level ABG pH POC ABG pCO2 POC ABG pO2 ABG pO2 ABG HCO3 ABG O2 Saturation ABG Base Excess ABG Hemoglobin ABG Oxyhemoglobin VBG pH ABG Sodium ABG Potassium ABG Glucose Oxyhemoglobin Sodium Potassium Chloride Carbon Dioxide BUN Creatinine Glucose POC Glucose 109 H 158 H 162 H Lactic Acid Calcium Ferritin AST Alkaline Phosphatase Magnesium Lactate Dehydrogenase Total Creatine Kinase CK-MB (CK-2) C-Reactive Protein Total Protein Albumin Troponin T HDL Cholesterol Arterial Blood Glucose Urine WBC (Auto) Urine Creatinine Urine Total Protein Phenytoin Coronavirus (PCR) Crossmatch 06/27/20 06/27/20 06/28/20 18:43 23:46 04:05 WBC RBC Hgb 7.7 L Hct 22.1 L MCHC RDW Lymph % (Auto) [place] % (Auto) Eos % (Auto) Lymph # [place] # Lymph # (Auto) [place] # (Auto) Eos # (Auto) Seg Neutrophils % Seg Neuts % (Manual) Lymphocytes % (Manual) Seg Neutrophils # Seg Neutrophils # Man Lymphocytes # (Manual) Monocytes % (Manual) Eosinophils % (Manual) Monocytes # (Manual) Eosinophils # (Manual) D-Dimer Heparin Anti-Xa Level ABG pH POC ABG pCO2 POC ABG pO2 ABG pO2 102.7 H ABG HCO3 28.7 H ABG O2 Saturation ABG Base Excess 3.7 H ABG Hemoglobin ABG Oxyhemoglobin VBG pH ABG Sodium ABG Potassium ABG Glucose Oxyhemoglobin Sodium Potassium Chloride Carbon Dioxide BUN Creatinine Glucose POC Glucose 142 H Lactic Acid Calcium Ferritin AST Alkaline Phosphatase Magnesium Lactate Dehydrogenase Total Creatine Kinase CK-MB (CK-2) C-Reactive Protein Total Protein Albumin Troponin T HDL Cholesterol Arterial Blood Glucose Urine WBC (Auto) Urine Creatinine Urine Total Protein Phenytoin Coronavirus (PCR) Crossmatch 06/28/20 06/28/20 06/28/20 09:47 09:47 12:02 WBC RBC 2.53 L Hgb 7.4 L Hct 22.2 L MCHC RDW 16.8 H Lymph % (Auto) [place] % (Auto) 13.5 H Eos % (Auto) Lymph # 1.1 L [place] # 1.0 H Lymph # (Auto) [place] # (Auto) Eos # (Auto) Seg Neutrophils % Seg Neuts % (Manual) Lymphocytes % (Manual) Seg Neutrophils # Seg Neutrophils # Man Lymphocytes # (Manual) Monocytes % (Manual) Eosinophils % (Manual) Monocytes # (Manual) Eosinophils # (Manual) D-Dimer Heparin Anti-Xa Level ABG pH POC ABG pCO2 POC ABG pO2 ABG pO2 ABG HCO3 ABG O2 Saturation ABG Base Excess ABG Hemoglobin ABG Oxyhemoglobin VBG pH ABG Sodium ABG Potassium ABG Glucose Oxyhemoglobin Sodium Potassium Chloride Carbon Dioxide BUN 80 H Creatinine 1.5 H Glucose 139 H POC Glucose 169 H Lactic Acid Calcium 7.9 L Ferritin AST Alkaline Phosphatase Magnesium Lactate Dehydrogenase Total Creatine Kinase CK-MB (CK-2) C-Reactive Protein Total Protein 5.0 L Albumin 2.1 L Troponin T HDL Cholesterol Arterial Blood Glucose Urine WBC (Auto) Urine Creatinine Urine Total Protein Phenytoin Coronavirus (PCR) Crossmatch 06/28/20 06/28/20 06/28/20 12:30 12:30 17:24 WBC RBC 2.38 L Hgb 7.3 L Hct 20.9 L MCHC 35 H RDW 16.7 H Lymph % (Auto) [place] % (Auto) Eos % (Auto) Lymph # [place] # Lymph # (Auto) [place] # (Auto) Eos # (Auto) Seg Neutrophils % Seg Neuts % (Manual) Lymphocytes % (Manual) Seg Neutrophils # Seg Neutrophils # Man Lymphocytes # (Manual) Monocytes % (Manual) Eosinophils % (Manual) Monocytes # (Manual) Eosinophils # (Manual) D-Dimer Heparin Anti-Xa Level ABG pH POC ABG pCO2 POC ABG pO2 ABG pO2 ABG HCO3 ABG O2 Saturation ABG Base Excess ABG Hemoglobin ABG Oxyhemoglobin VBG pH ABG Sodium ABG Potassium ABG Glucose Oxyhemoglobin Sodium Potassium Chloride Carbon Dioxide BUN 74 H Creatinine 1.5 H Glucose 143 H POC Glucose 173 H Lactic Acid Calcium 7.5 L Ferritin AST Alkaline Phosphatase Magnesium Lactate Dehydrogenase Total Creatine Kinase CK-MB (CK-2) C-Reactive Protein Total Protein Albumin Troponin T HDL Cholesterol Arterial Blood Glucose Urine WBC (Auto) Urine Creatinine Urine Total Protein Phenytoin Coronavirus (PCR) Crossmatch 06/29/20 06/29/20 06/29/20 00:02 03:54 04:38 WBC RBC 2.55 L Hgb 7.3 L Hct 22.4 L MCHC RDW 16.4 H Lymph % (Auto) 13.3 L [place] % (Auto) 12.5 H Eos % (Auto) Lymph # 1.1 L [place] # 1.0 H Lymph # (Auto) [place] # (Auto) Eos # (Auto) Seg Neutrophils % Seg Neuts % (Manual) Lymphocytes % (Manual) Seg Neutrophils # Seg Neutrophils # Man Lymphocytes # (Manual) Monocytes % (Manual) Eosinophils % (Manual) Monocytes # (Manual) Eosinophils # (Manual) D-Dimer Heparin Anti-Xa Level ABG pH POC ABG pCO2 POC ABG pO2 ABG pO2 ABG HCO3 26.9 H ABG O2 Saturation ABG Base Excess ABG Hemoglobin 6.9 L ABG Oxyhemoglobin VBG pH ABG Sodium ABG Potassium ABG Glucose Oxyhemoglobin Sodium Potassium Chloride Carbon Dioxide BUN Creatinine Glucose POC Glucose 142 H Lactic Acid Calcium Ferritin AST Alkaline Phosphatase Magnesium Lactate Dehydrogenase Total Creatine Kinase CK-MB (CK-2) C-Reactive Protein Total Protein Albumin Troponin T HDL Cholesterol Arterial Blood Glucose Urine WBC (Auto) Urine Creatinine Urine Total Protein Phenytoin Coronavirus (PCR) Crossmatch 06/29/20 06/29/20 06/29/20 04:38 05:38 12:25 WBC RBC Hgb Hct MCHC RDW Lymph % (Auto) [place] % (Auto) Eos % (Auto) Lymph # [place] # Lymph # (Auto) [place] # (Auto) Eos # (Auto) Seg Neutrophils % Seg Neuts % (Manual) Lymphocytes % (Manual) Seg Neutrophils # Seg Neutrophils # Man Lymphocytes # (Manual) Monocytes % (Manual) Eosinophils % (Manual) Monocytes # (Manual) Eosinophils # (Manual) D-Dimer Heparin Anti-Xa Level ABG pH POC ABG pCO2 POC ABG pO2 ABG pO2 ABG HCO3 ABG O2 Saturation ABG Base Excess ABG Hemoglobin ABG Oxyhemoglobin VBG pH ABG Sodium ABG Potassium ABG Glucose Oxyhemoglobin Sodium Potassium Chloride 107.8 H Carbon Dioxide BUN 72 H Creatinine 1.4 H Glucose 127 H POC Glucose 122 H 138 H Lactic Acid Calcium 7.4 L Ferritin AST Alkaline Phosphatase Magnesium Lactate Dehydrogenase Total Creatine Kinase CK-MB (CK-2) C-Reactive Protein Total Protein Albumin Troponin T HDL Cholesterol Arterial Blood Glucose Urine WBC (Auto) Urine Creatinine Urine Total Protein Phenytoin Coronavirus (PCR) Crossmatch 06/29/20 06/29/20 06/29/20 14:45 14:45 14:45 WBC RBC Hgb Hct MCHC RDW Lymph % (Auto) [place] % (Auto) Eos % (Auto) Lymph # [place] # Lymph # (Auto) [place] # (Auto) Eos # (Auto) Seg Neutrophils % Seg Neuts % (Manual) Lymphocytes % (Manual) Seg Neutrophils # Seg Neutrophils # Man Lymphocytes # (Manual) Monocytes % (Manual) Eosinophils % (Manual) Monocytes # (Manual) Eosinophils # (Manual) D-Dimer 2310.15 H Heparin Anti-Xa Level ABG pH POC ABG pCO2 POC ABG pO2 ABG pO2 ABG HCO3 ABG O2 Saturation ABG Base Excess ABG Hemoglobin ABG Oxyhemoglobin VBG pH ABG Sodium ABG Potassium ABG Glucose Oxyhemoglobin Sodium Potassium Chloride Carbon Dioxide BUN Creatinine Glucose POC Glucose Lactic Acid Calcium Ferritin 223.6 H AST Alkaline Phosphatase Magnesium Lactate Dehydrogenase 367 H Total Creatine Kinase CK-MB (CK-2) C-Reactive Protein 3.60 H Total Protein Albumin Troponin T HDL Cholesterol Arterial Blood Glucose Urine WBC (Auto) Urine Creatinine Urine Total Protein Phenytoin Coronavirus (PCR) Crossmatch 06/29/20 06/29/20 06/29/20 18:27 23:35 Unknown WBC RBC Hgb Hct MCHC RDW Lymph % (Auto) [place] % (Auto) Eos % (Auto) Lymph # [place] # Lymph # (Auto) [place] # (Auto) Eos # (Auto) Seg Neutrophils % Seg Neuts % (Manual) Lymphocytes % (Manual) Seg Neutrophils # Seg Neutrophils # Man Lymphocytes # (Manual) Monocytes % (Manual) Eosinophils % (Manual) Monocytes # (Manual) Eosinophils # (Manual) D-Dimer Heparin Anti-Xa Level ABG pH POC ABG pCO2 POC ABG pO2 ABG pO2 ABG HCO3 ABG O2 Saturation ABG Base Excess ABG Hemoglobin ABG Oxyhemoglobin VBG pH ABG Sodium ABG Potassium ABG Glucose Oxyhemoglobin Sodium Potassium Chloride Carbon Dioxide BUN Creatinine Glucose POC Glucose 112 H 140 H Lactic Acid Calcium Ferritin AST Alkaline Phosphatase Magnesium Lactate Dehydrogenase Total Creatine Kinase CK-MB (CK-2) C-Reactive Protein Total Protein Albumin Troponin T HDL Cholesterol Arterial Blood Glucose Urine WBC (Auto) Urine Creatinine Urine Total Protein Phenytoin Coronavirus (PCR) Positive A Crossmatch 06/30/20 06/30/20 06/30/20 04:10 04:10 06:09 WBC RBC 2.44 L Hgb 7.1 L Hct 21.5 L MCHC RDW 16.6 H Lymph % (Auto) 11.0 L [place] % (Auto) 10.8 H Eos % (Auto) Lymph # 0.9 L [place] # 0.9 H Lymph # (Auto) [place] # (Auto) Eos # (Auto) Seg Neutrophils % 73.7 H Seg Neuts % (Manual) Lymphocytes % (Manual) Seg Neutrophils # Seg Neutrophils # Man Lymphocytes # (Manual) Monocytes % (Manual) Eosinophils % (Manual) Monocytes # (Manual) Eosinophils # (Manual) D-Dimer Heparin Anti-Xa Level ABG pH POC ABG pCO2 POC ABG pO2 ABG pO2 ABG HCO3 ABG O2 Saturation ABG Base Excess ABG Hemoglobin ABG Oxyhemoglobin VBG pH ABG Sodium ABG Potassium ABG Glucose Oxyhemoglobin Sodium Potassium Chloride 109.1 H Carbon Dioxide BUN 74 H Creatinine 1.3 H Glucose 191 H POC Glucose 187 H Lactic Acid Calcium 7.8 L Ferritin AST Alkaline Phosphatase Magnesium Lactate Dehydrogenase Total Creatine Kinase CK-MB (CK-2) C-Reactive Protein Total Protein Albumin Troponin T HDL Cholesterol Arterial Blood Glucose Urine WBC (Auto) Urine Creatinine Urine Total Protein Phenytoin Coronavirus (PCR) Crossmatch 06/30/20 06/30/20 06/30/20 12:04 17:43 23:41 WBC RBC Hgb Hct MCHC RDW Lymph % (Auto) [place] % (Auto) Eos % (Auto) Lymph # [place] # Lymph # (Auto) [place] # (Auto) Eos # (Auto) Seg Neutrophils % Seg Neuts % (Manual) Lymphocytes % (Manual) Seg Neutrophils # Seg Neutrophils # Man Lymphocytes # (Manual) Monocytes % (Manual) Eosinophils % (Manual) Monocytes # (Manual) Eosinophils # (Manual) D-Dimer Heparin Anti-Xa Level ABG pH POC ABG pCO2 POC ABG pO2 ABG pO2 ABG HCO3 ABG O2 Saturation ABG Base Excess ABG Hemoglobin ABG Oxyhemoglobin VBG pH ABG Sodium ABG Potassium ABG Glucose Oxyhemoglobin Sodium Potassium Chloride Carbon Dioxide BUN Creatinine Glucose POC Glucose 112 H 177 H 143 H Lactic Acid Calcium Ferritin AST Alkaline Phosphatase Magnesium Lactate Dehydrogenase Total Creatine Kinase CK-MB (CK-2) C-Reactive Protein Total Protein Albumin Troponin T HDL Cholesterol Arterial Blood Glucose Urine WBC (Auto) Urine Creatinine Urine Total Protein Phenytoin Coronavirus (PCR) Crossmatch 07/01/20 07/01/20 07/01/20 05:02 05:52 06:01 WBC 12.6 H RBC 2.95 L Hgb 8.2 L Hct 26.0 L MCHC RDW 16.9 H Lymph % (Auto) [place] % (Auto) Eos % (Auto) Lymph # [place] # Lymph # (Auto) [place] # (Auto) Eos # (Auto) Seg Neutrophils % Seg Neuts % (Manual) Lymphocytes % (Manual) Seg Neutrophils # Seg Neutrophils # Man 8.6 H Lymphocytes # (Manual) Monocytes % (Manual) Eosinophils % (Manual) 5.0 H Monocytes # (Manual) Eosinophils # (Manual) 0.6 H D-Dimer Heparin Anti-Xa Level ABG pH POC ABG pCO2 POC ABG pO2 ABG pO2 ABG HCO3 ABG O2 Saturation ABG Base Excess ABG Hemoglobin 8.2 L ABG Oxyhemoglobin VBG pH ABG Sodium ABG Potassium ABG Glucose Oxyhemoglobin Sodium Potassium Chloride Carbon Dioxide BUN Creatinine Glucose POC Glucose 129 H Lactic Acid Calcium Ferritin AST Alkaline Phosphatase Magnesium Lactate Dehydrogenase Total Creatine Kinase CK-MB (CK-2) C-Reactive Protein Total Protein Albumin Troponin T HDL Cholesterol Arterial Blood Glucose Urine WBC (Auto) Urine Creatinine Urine Total Protein Phenytoin Coronavirus (PCR) Crossmatch 07/01/20 07/01/20 07/01/20 06:01 06:01 06:08 WBC RBC Hgb Hct MCHC RDW Lymph % (Auto) [place] % (Auto) Eos % (Auto) Lymph # [place] # Lymph # (Auto) [place] # (Auto) Eos # (Auto) Seg Neutrophils % Seg Neuts % (Manual) Lymphocytes % (Manual) Seg Neutrophils # Seg Neutrophils # Man Lymphocytes # (Manual) Monocytes % (Manual) Eosinophils % (Manual) Monocytes # (Manual) Eosinophils # (Manual) D-Dimer Heparin Anti-Xa Level ABG pH POC ABG pCO2 POC ABG pO2 ABG pO2 ABG HCO3 ABG O2 Saturation ABG Base Excess ABG Hemoglobin ABG Oxyhemoglobin VBG pH ABG Sodium ABG Potassium ABG Glucose Oxyhemoglobin Sodium 147 H Potassium Chloride 108.0 H Carbon Dioxide BUN 71 H Creatinine 1.3 H Glucose 193 H POC Glucose 192 H Lactic Acid Calcium 8.1 L Ferritin AST Alkaline Phosphatase Magnesium Lactate Dehydrogenase Total Creatine Kinase 300 H CK-MB (CK-2) C-Reactive Protein Total Protein Albumin Troponin T 0.067 H HDL Cholesterol 61 H Arterial Blood Glucose Urine WBC (Auto) Urine Creatinine Urine Total Protein Phenytoin Coronavirus (PCR) Crossmatch 07/01/20 07/01/20 07/02/20 12:23 17:40 00:18 WBC RBC Hgb Hct MCHC RDW Lymph % (Auto) [place] % (Auto) Eos % (Auto) Lymph # [place] # Lymph # (Auto) [place] # (Auto) Eos # (Auto) Seg Neutrophils % Seg Neuts % (Manual) Lymphocytes % (Manual) Seg Neutrophils # Seg Neutrophils # Man Lymphocytes # (Manual) Monocytes % (Manual) Eosinophils % (Manual) Monocytes # (Manual) Eosinophils # (Manual) D-Dimer Heparin Anti-Xa Level ABG pH POC ABG pCO2 POC ABG pO2 ABG pO2 ABG HCO3 ABG O2 Saturation ABG Base Excess ABG Hemoglobin ABG Oxyhemoglobin VBG pH ABG Sodium ABG Potassium ABG Glucose Oxyhemoglobin Sodium Potassium Chloride Carbon Dioxide BUN Creatinine Glucose POC Glucose 111 H 135 H 145 H Lactic Acid Calcium Ferritin AST Alkaline Phosphatase Magnesium Lactate Dehydrogenase Total Creatine Kinase CK-MB (CK-2) C-Reactive Protein Total Protein Albumin Troponin T HDL Cholesterol Arterial Blood Glucose Urine WBC (Auto) Urine Creatinine Urine Total Protein Phenytoin Coronavirus (PCR) Crossmatch 07/02/20 07/02/20 07/02/20 04:11 04:23 05:54 WBC RBC Hgb Hct MCHC RDW Lymph % (Auto) [place] % (Auto) Eos % (Auto) Lymph # [place] # Lymph # (Auto) [place] # (Auto) Eos # (Auto) Seg Neutrophils % Seg Neuts % (Manual) Lymphocytes % (Manual) Seg Neutrophils # Seg Neutrophils # Man Lymphocytes # (Manual) Monocytes % (Manual) Eosinophils % (Manual) Monocytes # (Manual) Eosinophils # (Manual) D-Dimer Heparin Anti-Xa Level ABG pH POC ABG pCO2 POC ABG pO2 ABG pO2 ABG HCO3 ABG O2 Saturation ABG Base Excess ABG Hemoglobin 5.4 L ABG Oxyhemoglobin VBG pH ABG Sodium ABG Potassium ABG Glucose Oxyhemoglobin Sodium Potassium Chloride 108.6 H Carbon Dioxide BUN 72 H Creatinine Glucose 112 H POC Glucose 137 H Lactic Acid Calcium 7.8 L Ferritin AST Alkaline Phosphatase Magnesium Lactate Dehydrogenase Total Creatine Kinase CK-MB (CK-2) C-Reactive Protein Total Protein Albumin Troponin T HDL Cholesterol Arterial Blood Glucose Urine WBC (Auto) Urine Creatinine Urine Total Protein Phenytoin Coronavirus (PCR) Crossmatch 07/02/20 07/02/20 07/02/20 11:38 18:04 23:59 WBC RBC Hgb Hct MCHC RDW Lymph % (Auto) [place] % (Auto) Eos % (Auto) Lymph # [place] # Lymph # (Auto) [place] # (Auto) Eos # (Auto) Seg Neutrophils % Seg Neuts % (Manual) Lymphocytes % (Manual) Seg Neutrophils # Seg Neutrophils # Man Lymphocytes # (Manual) Monocytes % (Manual) Eosinophils % (Manual) Monocytes # (Manual) Eosinophils # (Manual) D-Dimer Heparin Anti-Xa Level ABG pH POC ABG pCO2 POC ABG pO2 ABG pO2 ABG HCO3 ABG O2 Saturation ABG Base Excess ABG Hemoglobin ABG Oxyhemoglobin VBG pH ABG Sodium ABG Potassium ABG Glucose Oxyhemoglobin Sodium Potassium Chloride Carbon Dioxide BUN Creatinine Glucose POC Glucose 128 H 135 H 156 H Lactic Acid Calcium Ferritin AST Alkaline Phosphatase Magnesium Lactate Dehydrogenase Total Creatine Kinase CK-MB (CK-2) C-Reactive Protein Total Protein Albumin Troponin T HDL Cholesterol Arterial Blood Glucose Urine WBC (Auto) Urine Creatinine Urine Total Protein Phenytoin Coronavirus (PCR) Crossmatch 07/03/20 07/03/20 07/03/20 03:49 06:00 11:31 WBC RBC Hgb Hct MCHC RDW Lymph % (Auto) [place] % (Auto) Eos % (Auto) Lymph # [place] # Lymph # (Auto) [place] # (Auto) Eos # (Auto) Seg Neutrophils % Seg Neuts % (Manual) Lymphocytes % (Manual) Seg Neutrophils # Seg Neutrophils # Man Lymphocytes # (Manual) Monocytes % (Manual) Eosinophils % (Manual) Monocytes # (Manual) Eosinophils # (Manual) D-Dimer Heparin Anti-Xa Level ABG pH POC ABG pCO2 POC ABG pO2 ABG pO2 121.0 H ABG HCO3 ABG O2 Saturation ABG Base Excess ABG Hemoglobin 8.5 L ABG Oxyhemoglobin VBG pH ABG Sodium ABG Potassium ABG Glucose Oxyhemoglobin Sodium Potassium Chloride Carbon Dioxide BUN Creatinine Glucose POC Glucose 135 H 141 H Lactic Acid Calcium Ferritin AST Alkaline Phosphatase Magnesium Lactate Dehydrogenase Total Creatine Kinase CK-MB (CK-2) C-Reactive Protein Total Protein Albumin Troponin T HDL Cholesterol Arterial Blood Glucose Urine WBC (Auto) Urine Creatinine Urine Total Protein Phenytoin Coronavirus (PCR) Crossmatch 07/03/20 07/03/20 07/03/20 16:00 16:07 17:40 WBC RBC Hgb Hct MCHC RDW Lymph % (Auto) [place] % (Auto) Eos % (Auto) Lymph # [place] # Lymph # (Auto) [place] # (Auto) Eos # (Auto) Seg Neutrophils % Seg Neuts % (Manual) Lymphocytes % (Manual) Seg Neutrophils # Seg Neutrophils # Man Lymphocytes # (Manual) Monocytes % (Manual) Eosinophils % (Manual) Monocytes # (Manual) Eosinophils # (Manual) D-Dimer Heparin Anti-Xa Level ABG pH 7.271 L POC ABG pCO2 POC ABG pO2 ABG pO2 126.9 H ABG HCO3 ABG O2 Saturation ABG Base Excess ABG Hemoglobin 8.2 L 8.1 L ABG Oxyhemoglobin VBG pH ABG Sodium 130.3 L ABG Potassium 4.9 H ABG Glucose 163 H Oxyhemoglobin Sodium Potassium Chloride Carbon Dioxide BUN Creatinine Glucose POC Glucose 120 H Lactic Acid Calcium Ferritin AST Alkaline Phosphatase Magnesium Lactate Dehydrogenase Total Creatine Kinase CK-MB (CK-2) C-Reactive Protein Total Protein Albumin Troponin T HDL Cholesterol Arterial Blood Glucose 163 H Urine WBC (Auto) Urine Creatinine Urine Total Protein Phenytoin Coronavirus (PCR) Crossmatch 07/04/20 07/04/20 07/04/20 05:49 11:54 18:00 WBC RBC Hgb Hct MCHC RDW Lymph % (Auto) [place] % (Auto) Eos % (Auto) Lymph # [place] # Lymph # (Auto) [place] # (Auto) Eos # (Auto) Seg Neutrophils % Seg Neuts % (Manual) Lymphocytes % (Manual) Seg Neutrophils # Seg Neutrophils # Man Lymphocytes # (Manual) Monocytes % (Manual) Eosinophils % (Manual) Monocytes # (Manual) Eosinophils # (Manual) D-Dimer Heparin Anti-Xa Level ABG pH POC ABG pCO2 POC ABG pO2 ABG pO2 ABG HCO3 ABG O2 Saturation ABG Base Excess ABG Hemoglobin ABG Oxyhemoglobin VBG pH ABG Sodium ABG Potassium ABG Glucose Oxyhemoglobin Sodium Potassium Chloride Carbon Dioxide BUN Creatinine Glucose POC Glucose 128 H 168 H 133 H Lactic Acid Calcium Ferritin AST Alkaline Phosphatase Magnesium Lactate Dehydrogenase Total Creatine Kinase CK-MB (CK-2) C-Reactive Protein Total Protein Albumin Troponin T HDL Cholesterol Arterial Blood Glucose Urine WBC (Auto) Urine Creatinine Urine Total Protein Phenytoin Coronavirus (PCR) Crossmatch 07/05/20 07/05/20 07/05/20 00:07 01:12 02:30 WBC RBC 2.35 L Hgb 6.9 L Hct 21.1 L MCHC RDW 16.8 H Lymph % (Auto) [place] % (Auto) Eos % (Auto) Lymph # [place] # Lymph # (Auto) [place] # (Auto) Eos # (Auto) Seg Neutrophils % Seg Neuts % (Manual) 74.0 H Lymphocytes % (Manual) 12.0 L Seg Neutrophils # Seg Neutrophils # Man 8.0 H Lymphocytes # (Manual) Monocytes % (Manual) 9.0 H Eosinophils % (Manual) Monocytes # (Manual) 1.0 H Eosinophils # (Manual) D-Dimer Heparin Anti-Xa Level ABG pH POC ABG pCO2 POC ABG pO2 ABG pO2 ABG HCO3 ABG O2 Saturation ABG Base Excess ABG Hemoglobin ABG Oxyhemoglobin VBG pH ABG Sodium ABG Potassium ABG Glucose Oxyhemoglobin Sodium Potassium Chloride Carbon Dioxide BUN Creatinine Glucose POC Glucose 121 H Lactic Acid Calcium Ferritin AST Alkaline Phosphatase Magnesium Lactate Dehydrogenase Total Creatine Kinase CK-MB (CK-2) C-Reactive Protein Total Protein Albumin Troponin T HDL Cholesterol Arterial Blood Glucose Urine WBC (Auto) Urine Creatinine Urine Total Protein Phenytoin Coronavirus (PCR) Crossmatch See Detail 07/05/20 07/05/20 07/05/20 12:09 13:05 18:04 WBC RBC Hgb Hct MCHC RDW Lymph % (Auto) [place] % (Auto) Eos % (Auto) Lymph # [place] # Lymph # (Auto) [place] # (Auto) Eos # (Auto) Seg Neutrophils % Seg Neuts % (Manual) Lymphocytes % (Manual) Seg Neutrophils # Seg Neutrophils # Man Lymphocytes # (Manual) Monocytes % (Manual) Eosinophils % (Manual) Monocytes # (Manual) Eosinophils # (Manual) D-Dimer Heparin Anti-Xa Level ABG pH 7.32 L POC ABG pCO2 POC ABG pO2 ABG pO2 78.3 L ABG HCO3 ABG O2 Saturation ABG Base Excess -2.6 L ABG Hemoglobin 7.3 L ABG Oxyhemoglobin VBG pH ABG Sodium ABG Potassium ABG Glucose Oxyhemoglobin Sodium Potassium Chloride Carbon Dioxide BUN Creatinine Glucose POC Glucose 132 H 160 H Lactic Acid Calcium Ferritin AST Alkaline Phosphatase Magnesium Lactate Dehydrogenase Total Creatine Kinase CK-MB (CK-2) C-Reactive Protein Total Protein Albumin Troponin T HDL Cholesterol Arterial Blood Glucose Urine WBC (Auto) Urine Creatinine Urine Total Protein Phenytoin Coronavirus (PCR) Crossmatch 07/05/20 07/05/20 07/05/20 23:13 23:13 23:43 WBC RBC 2.57 L Hgb 7.7 L Hct 23.0 L MCHC RDW 16.9 H Lymph % (Auto) [place] % (Auto) Eos % (Auto) Lymph # [place] # Lymph # (Auto) [place] # (Auto) Eos # (Auto) Seg Neutrophils % Seg Neuts % (Manual) Lymphocytes % (Manual) Seg Neutrophils # Seg Neutrophils # Man Lymphocytes # (Manual) Monocytes % (Manual) Eosinophils % (Manual) Monocytes # (Manual) Eosinophils # (Manual) D-Dimer Heparin Anti-Xa Level ABG pH POC ABG pCO2 POC ABG pO2 ABG pO2 ABG HCO3 ABG O2 Saturation ABG Base Excess ABG Hemoglobin ABG Oxyhemoglobin VBG pH ABG Sodium ABG Potassium ABG Glucose Oxyhemoglobin Sodium Potassium Chloride Carbon Dioxide 20 L BUN 80 H Creatinine 2.4 H D Glucose 124 H POC Glucose 121 H Lactic Acid Calcium 7.6 L Ferritin AST Alkaline Phosphatase Magnesium Lactate Dehydrogenase Total Creatine Kinase CK-MB (CK-2) C-Reactive Protein Total Protein Albumin Troponin T HDL Cholesterol Arterial Blood Glucose Urine WBC (Auto) Urine Creatinine Urine Total Protein Phenytoin Coronavirus (PCR) Crossmatch 07/06/20 07/06/20 07/06/20 13:20 14:48 17:28 WBC RBC Hgb Hct MCHC RDW Lymph % (Auto) [place] % (Auto) Eos % (Auto) Lymph # [place] # Lymph # (Auto) [place] # (Auto) Eos # (Auto) Seg Neutrophils % Seg Neuts % (Manual) Lymphocytes % (Manual) Seg Neutrophils # Seg Neutrophils # Man Lymphocytes # (Manual) Monocytes % (Manual) Eosinophils % (Manual) Monocytes # (Manual) Eosinophils # (Manual) D-Dimer Heparin Anti-Xa Level ABG pH POC ABG pCO2 POC ABG pO2 ABG pO2 ABG HCO3 ABG O2 Saturation ABG Base Excess ABG Hemoglobin ABG Oxyhemoglobin VBG pH ABG Sodium ABG Potassium ABG Glucose Oxyhemoglobin Sodium 136 L Potassium 5.5 H Chloride Carbon Dioxide 19 L BUN 82 H Creatinine 2.5 H Glucose 113 H POC Glucose 133 H Lactic Acid Calcium 7.7 L Ferritin AST Alkaline Phosphatase Magnesium Lactate Dehydrogenase Total Creatine Kinase CK-MB (CK-2) C-Reactive Protein Total Protein Albumin Troponin T HDL Cholesterol Arterial Blood Glucose Urine WBC (Auto) Urine Creatinine 33.3 H Urine Total Protein Phenytoin Coronavirus (PCR) Crossmatch 07/07/20 07/07/20 07/07/20 00:12 04:15 04:15 WBC RBC 2.28 L Hgb 6.8 L Hct 20.7 L MCHC RDW 16.8 H Lymph % (Auto) [place] % (Auto) Eos % (Auto) Lymph # [place] # Lymph # (Auto) [place] # (Auto) Eos # (Auto) Seg Neutrophils % Seg Neuts % (Manual) Lymphocytes % (Manual) 13.0 L Seg Neutrophils # Seg Neutrophils # Man Lymphocytes # (Manual) 1.0 L Monocytes % (Manual) 11.0 H Eosinophils % (Manual) Monocytes # (Manual) 0.9 H Eosinophils # (Manual) D-Dimer Heparin Anti-Xa Level ABG pH POC ABG pCO2 POC ABG pO2 ABG pO2 ABG HCO3 ABG O2 Saturation ABG Base Excess ABG Hemoglobin ABG Oxyhemoglobin VBG pH ABG Sodium ABG Potassium ABG Glucose Oxyhemoglobin Sodium Potassium Chloride Carbon Dioxide BUN Creatinine Glucose POC Glucose 154 H Lactic Acid Calcium Ferritin AST Alkaline Phosphatase Magnesium 2.50 H Lactate Dehydrogenase Total Creatine Kinase CK-MB (CK-2) C-Reactive Protein Total Protein Albumin Troponin T HDL Cholesterol Arterial Blood Glucose Urine WBC (Auto) Urine Creatinine Urine Total Protein Phenytoin Coronavirus (PCR) Crossmatch 07/07/20 07/07/20 07/07/20 05:31 12:31 13:22 WBC RBC Hgb Hct MCHC RDW Lymph % (Auto) [place] % (Auto) Eos % (Auto) Lymph # [place] # Lymph # (Auto) [place] # (Auto) Eos # (Auto) Seg Neutrophils % Seg Neuts % (Manual) Lymphocytes % (Manual) Seg Neutrophils # Seg Neutrophils # Man Lymphocytes # (Manual) Monocytes % (Manual) Eosinophils % (Manual) Monocytes # (Manual) Eosinophils # (Manual) D-Dimer Heparin Anti-Xa Level ABG pH POC ABG pCO2 POC ABG pO2 ABG pO2 ABG HCO3 ABG O2 Saturation ABG Base Excess ABG Hemoglobin ABG Oxyhemoglobin VBG pH ABG Sodium ABG Potassium ABG Glucose Oxyhemoglobin Sodium Potassium 5.6 H Chloride Carbon Dioxide BUN 86 H Creatinine 2.9 H Glucose 127 H POC Glucose 135 H 131 H Lactic Acid Calcium 8.1 L Ferritin AST Alkaline Phosphatase Magnesium Lactate Dehydrogenase Total Creatine Kinase CK-MB (CK-2) C-Reactive Protein Total Protein Albumin Troponin T HDL Cholesterol Arterial Blood Glucose Urine WBC (Auto) Urine Creatinine Urine Total Protein Phenytoin Coronavirus (PCR) Crossmatch 07/07/20 07/07/20 07/08/20 17:55 23:33 04:14 WBC RBC 3.28 L Hgb 9.7 L Hct 28.9 L D MCHC RDW 16.4 H Lymph % (Auto) 10.3 L [place] % (Auto) 10.0 H Eos % (Auto) Lymph # [place] # Lymph # (Auto) 1.1 L [place] # (Auto) 1.1 H Eos # (Auto) Seg Neutrophils % 77.2 H Seg Neuts % (Manual) Lymphocytes % (Manual) Seg Neutrophils # 8.2 H Seg Neutrophils # Man Lymphocytes # (Manual) Monocytes % (Manual) Eosinophils % (Manual) Monocytes # (Manual) Eosinophils # (Manual) D-Dimer Heparin Anti-Xa Level ABG pH POC ABG pCO2 POC ABG pO2 ABG pO2 ABG HCO3 ABG O2 Saturation ABG Base Excess ABG Hemoglobin ABG Oxyhemoglobin VBG pH ABG Sodium ABG Potassium ABG Glucose Oxyhemoglobin Sodium Potassium Chloride Carbon Dioxide BUN Creatinine Glucose POC Glucose 136 H 159 H Lactic Acid Calcium Ferritin AST Alkaline Phosphatase Magnesium Lactate Dehydrogenase Total Creatine Kinase CK-MB (CK-2) C-Reactive Protein Total Protein Albumin Troponin T HDL Cholesterol Arterial Blood Glucose Urine WBC (Auto) Urine Creatinine Urine Total Protein Phenytoin Coronavirus (PCR) Crossmatch 07/08/20 07/08/20 07/08/20 04:14 12:10 18:10 WBC RBC Hgb Hct MCHC RDW Lymph % (Auto) [place] % (Auto) Eos % (Auto) Lymph # [place] # Lymph # (Auto) [place] # (Auto) Eos # (Auto) Seg Neutrophils % Seg Neuts % (Manual) Lymphocytes % (Manual) Seg Neutrophils # Seg Neutrophils # Man Lymphocytes # (Manual) Monocytes % (Manual) Eosinophils % (Manual) Monocytes # (Manual) Eosinophils # (Manual) D-Dimer Heparin Anti-Xa Level ABG pH POC ABG pCO2 POC ABG pO2 ABG pO2 ABG HCO3 ABG O2 Saturation ABG Base Excess ABG Hemoglobin ABG Oxyhemoglobin VBG pH ABG Sodium ABG Potassium ABG Glucose Oxyhemoglobin Sodium 136 L Potassium Chloride Carbon Dioxide BUN 84 H Creatinine 2.8 H Glucose 109 H POC Glucose 108 H 125 H Lactic Acid Calcium 8.1 L Ferritin AST Alkaline Phosphatase Magnesium 2.50 H Lactate Dehydrogenase Total Creatine Kinase CK-MB (CK-2) C-Reactive Protein Total Protein Albumin Troponin T HDL Cholesterol Arterial Blood Glucose Urine WBC (Auto) Urine Creatinine Urine Total Protein Phenytoin Coronavirus (PCR) Crossmatch 07/08/20 07/09/20 07/09/20 23:50 05:39 11:57 WBC RBC Hgb Hct MCHC RDW Lymph % (Auto) [place] % (Auto) Eos % (Auto) Lymph # [place] # Lymph # (Auto) [place] # (Auto) Eos # (Auto) Seg Neutrophils % Seg Neuts % (Manual) Lymphocytes % (Manual) Seg Neutrophils # Seg Neutrophils # Man Lymphocytes # (Manual) Monocytes % (Manual) Eosinophils % (Manual) Monocytes # (Manual) Eosinophils # (Manual) D-Dimer Heparin Anti-Xa Level ABG pH POC ABG pCO2 POC ABG pO2 ABG pO2 ABG HCO3 ABG O2 Saturation ABG Base Excess ABG Hemoglobin ABG Oxyhemoglobin VBG pH ABG Sodium ABG Potassium ABG Glucose Oxyhemoglobin Sodium Potassium Chloride Carbon Dioxide BUN Creatinine Glucose POC Glucose 141 H 121 H 123 H Lactic Acid Calcium Ferritin AST Alkaline Phosphatase Magnesium Lactate Dehydrogenase Total Creatine Kinase CK-MB (CK-2) C-Reactive Protein Total Protein Albumin Troponin T HDL Cholesterol Arterial Blood Glucose Urine WBC (Auto) Urine Creatinine Urine Total Protein Phenytoin Coronavirus (PCR) Crossmatch 07/09/20 07/10/20 07/10/20 17:56 00:29 05:50 WBC RBC Hgb Hct MCHC RDW Lymph % (Auto) [place] % (Auto) Eos % (Auto) Lymph # [place] # Lymph # (Auto) [place] # (Auto) Eos # (Auto) Seg Neutrophils % Seg Neuts % (Manual) Lymphocytes % (Manual) Seg Neutrophils # Seg Neutrophils # Man Lymphocytes # (Manual) Monocytes % (Manual) Eosinophils % (Manual) Monocytes # (Manual) Eosinophils # (Manual) D-Dimer Heparin Anti-Xa Level ABG pH POC ABG pCO2 POC ABG pO2 ABG pO2 ABG HCO3 ABG O2 Saturation ABG Base Excess ABG Hemoglobin ABG Oxyhemoglobin VBG pH ABG Sodium ABG Potassium ABG Glucose Oxyhemoglobin Sodium Potassium Chloride Carbon Dioxide BUN Creatinine Glucose POC Glucose 119 H 122 H 124 H Lactic Acid Calcium Ferritin AST Alkaline Phosphatase Magnesium Lactate Dehydrogenase Total Creatine Kinase CK-MB (CK-2) C-Reactive Protein Total Protein Albumin Troponin T HDL Cholesterol Arterial Blood Glucose Urine WBC (Auto) Urine Creatinine Urine Total Protein Phenytoin Coronavirus (PCR) Crossmatch 07/10/20 07/10/20 07/10/20 10:41 10:41 12:25 WBC RBC 3.11 L Hgb 9.2 L Hct 27.6 L MCHC RDW 16.6 H Lymph % (Auto) [place] % (Auto) Eos % (Auto) Lymph # [place] # Lymph # (Auto) [place] # (Auto) Eos # (Auto) Seg Neutrophils % Seg Neuts % (Manual) 78.0 H Lymphocytes % (Manual) 11.0 L Seg Neutrophils # Seg Neutrophils # Man Lymphocytes # (Manual) 1.0 L Monocytes % (Manual) Eosinophils % (Manual) Monocytes # (Manual) Eosinophils # (Manual) D-Dimer Heparin Anti-Xa Level ABG pH POC ABG pCO2 POC ABG pO2 ABG pO2 ABG HCO3 ABG O2 Saturation ABG Base Excess ABG Hemoglobin ABG Oxyhemoglobin VBG pH ABG Sodium ABG Potassium ABG Glucose Oxyhemoglobin Sodium Potassium Chloride Carbon Dioxide BUN 85 H Creatinine 2.5 H Glucose 133 H POC Glucose 131 H Lactic Acid Calcium Ferritin AST Alkaline Phosphatase 131 H Magnesium Lactate Dehydrogenase Total Creatine Kinase CK-MB (CK-2) C-Reactive Protein Total Protein 5.2 L Albumin 1.6 L Troponin T HDL Cholesterol Arterial Blood Glucose Urine WBC (Auto) Urine Creatinine Urine Total Protein Phenytoin Coronavirus (PCR) Crossmatch 07/10/20 07/11/20 07/11/20 18:10 00:28 05:57 WBC RBC Hgb Hct MCHC RDW Lymph % (Auto) [place] % (Auto) Eos % (Auto) Lymph # [place] # Lymph # (Auto) [place] # (Auto) Eos # (Auto) Seg Neutrophils % Seg Neuts % (Manual) Lymphocytes % (Manual) Seg Neutrophils # Seg Neutrophils # Man Lymphocytes # (Manual) Monocytes % (Manual) Eosinophils % (Manual) Monocytes # (Manual) Eosinophils # (Manual) D-Dimer Heparin Anti-Xa Level ABG pH POC ABG pCO2 POC ABG pO2 ABG pO2 ABG HCO3 ABG O2 Saturation ABG Base Excess ABG Hemoglobin ABG Oxyhemoglobin VBG pH ABG Sodium ABG Potassium ABG Glucose Oxyhemoglobin Sodium Potassium Chloride Carbon Dioxide BUN Creatinine Glucose POC Glucose 134 H 140 H 148 H Lactic Acid Calcium Ferritin AST Alkaline Phosphatase Magnesium Lactate Dehydrogenase Total Creatine Kinase CK-MB (CK-2) C-Reactive Protein Total Protein Albumin Troponin T HDL Cholesterol Arterial Blood Glucose Urine WBC (Auto) Urine Creatinine Urine Total Protein Phenytoin Coronavirus (PCR) Crossmatch 07/11/20 07/11/20 07/11/20 12:14 17:28 23:49 WBC RBC Hgb Hct MCHC RDW Lymph % (Auto) [place] % (Auto) Eos % (Auto) Lymph # [place] # Lymph # (Auto) [place] # (Auto) Eos # (Auto) Seg Neutrophils % Seg Neuts % (Manual) Lymphocytes % (Manual) Seg Neutrophils # Seg Neutrophils # Man Lymphocytes # (Manual) Monocytes % (Manual) Eosinophils % (Manual) Monocytes # (Manual) Eosinophils # (Manual) D-Dimer Heparin Anti-Xa Level ABG pH POC ABG pCO2 POC ABG pO2 ABG pO2 ABG HCO3 ABG O2 Saturation ABG Base Excess ABG Hemoglobin ABG Oxyhemoglobin VBG pH ABG Sodium ABG Potassium ABG Glucose Oxyhemoglobin Sodium Potassium Chloride Carbon Dioxide BUN Creatinine Glucose POC Glucose 147 H 175 H 114 H Lactic Acid Calcium Ferritin AST Alkaline Phosphatase Magnesium Lactate Dehydrogenase Total Creatine Kinase CK-MB (CK-2) C-Reactive Protein Total Protein Albumin Troponin T HDL Cholesterol Arterial Blood Glucose Urine WBC (Auto) Urine Creatinine Urine Total Protein Phenytoin Coronavirus (PCR) Crossmatch 07/12/20 07/12/20 07/12/20 05:14 05:14 05:44 WBC RBC 2.78 L Hgb 8.5 L Hct 25.3 L MCHC RDW 16.7 H Lymph % (Auto) [place] % (Auto) Eos % (Auto) Lymph # [place] # Lymph # (Auto) [place] # (Auto) Eos # (Auto) Seg Neutrophils % Seg Neuts % (Manual) 81.0 H Lymphocytes % (Manual) 6.0 L Seg Neutrophils # Seg Neutrophils # Man Lymphocytes # (Manual) 0.6 L Monocytes % (Manual) 8.0 H Eosinophils % (Manual) Monocytes # (Manual) Eosinophils # (Manual) D-Dimer Heparin Anti-Xa Level ABG pH POC ABG pCO2 POC ABG pO2 ABG pO2 ABG HCO3 ABG O2 Saturation ABG Base Excess ABG Hemoglobin ABG Oxyhemoglobin VBG pH ABG Sodium ABG Potassium ABG Glucose Oxyhemoglobin Sodium Potassium Chloride Carbon Dioxide BUN 79 H Creatinine 2.2 H Glucose 131 H POC Glucose 116 H Lactic Acid Calcium Ferritin AST Alkaline Phosphatase Magnesium Lactate Dehydrogenase Total Creatine Kinase CK-MB (CK-2) C-Reactive Protein Total Protein Albumin Troponin T HDL Cholesterol Arterial Blood Glucose Urine WBC (Auto) Urine Creatinine Urine Total Protein Phenytoin Coronavirus (PCR) Crossmatch 07/12/20 07/12/20 07/13/20 11:32 17:53 00:18 WBC RBC Hgb Hct MCHC RDW Lymph % (Auto) [place] % (Auto) Eos % (Auto) Lymph # [place] # Lymph # (Auto) [place] # (Auto) Eos # (Auto) Seg Neutrophils % Seg Neuts % (Manual) Lymphocytes % (Manual) Seg Neutrophils # Seg Neutrophils # Man Lymphocytes # (Manual) Monocytes % (Manual) Eosinophils % (Manual) Monocytes # (Manual) Eosinophils # (Manual) D-Dimer Heparin Anti-Xa Level ABG pH POC ABG pCO2 POC ABG pO2 ABG pO2 ABG HCO3 ABG O2 Saturation ABG Base Excess ABG Hemoglobin ABG Oxyhemoglobin VBG pH ABG Sodium ABG Potassium ABG Glucose Oxyhemoglobin Sodium Potassium Chloride Carbon Dioxide BUN Creatinine Glucose POC Glucose 132 H 155 H 162 H Lactic Acid Calcium Ferritin AST Alkaline Phosphatase Magnesium Lactate Dehydrogenase Total Creatine Kinase CK-MB (CK-2) C-Reactive Protein Total Protein Albumin Troponin T HDL Cholesterol Arterial Blood Glucose Urine WBC (Auto) Urine Creatinine Urine Total Protein Phenytoin Coronavirus (PCR) Crossmatch 07/13/20 07/13/20 07/13/20 04:53 04:53 06:14 WBC RBC 2.86 L Hgb 8.4 L Hct 25.7 L MCHC RDW 16.8 H Lymph % (Auto) [place] % (Auto) Eos % (Auto) Lymph # [place] # Lymph # (Auto) [place] # (Auto) Eos # (Auto) Seg Neutrophils % Seg Neuts % (Manual) 84.0 H Lymphocytes % (Manual) 7.0 L Seg Neutrophils # Seg Neutrophils # Man Lymphocytes # (Manual) 0.6 L Monocytes % (Manual) Eosinophils % (Manual) Monocytes # (Manual) Eosinophils # (Manual) D-Dimer Heparin Anti-Xa Level ABG pH POC ABG pCO2 POC ABG pO2 ABG pO2 ABG HCO3 ABG O2 Saturation ABG Base Excess ABG Hemoglobin ABG Oxyhemoglobin VBG pH ABG Sodium ABG Potassium ABG Glucose Oxyhemoglobin Sodium 136 L Potassium Chloride Carbon Dioxide BUN 78 H Creatinine 2.0 H Glucose 130 H POC Glucose 141 H Lactic Acid Calcium Ferritin AST Alkaline Phosphatase Magnesium Lactate Dehydrogenase Total Creatine Kinase CK-MB (CK-2) C-Reactive Protein Total Protein Albumin Troponin T HDL Cholesterol Arterial Blood Glucose Urine WBC (Auto) Urine Creatinine Urine Total Protein Phenytoin Coronavirus (PCR) Crossmatch 07/13/20 07/13/20 07/14/20 12:50 18:27 00:22 WBC RBC Hgb Hct MCHC RDW Lymph % (Auto) [place] % (Auto) Eos % (Auto) Lymph # [place] # Lymph # (Auto) [place] # (Auto) Eos # (Auto) Seg Neutrophils % Seg Neuts % (Manual) Lymphocytes % (Manual) Seg Neutrophils # Seg Neutrophils # Man Lymphocytes # (Manual) Monocytes % (Manual) Eosinophils % (Manual) Monocytes # (Manual) Eosinophils # (Manual) D-Dimer Heparin Anti-Xa Level ABG pH POC ABG pCO2 POC ABG pO2 ABG pO2 ABG HCO3 ABG O2 Saturation ABG Base Excess ABG Hemoglobin ABG Oxyhemoglobin VBG pH ABG Sodium ABG Potassium ABG Glucose Oxyhemoglobin Sodium Potassium Chloride Carbon Dioxide BUN Creatinine Glucose POC Glucose 146 H 149 H 157 H Lactic Acid Calcium Ferritin AST Alkaline Phosphatase Magnesium Lactate Dehydrogenase Total Creatine Kinase CK-MB (CK-2) C-Reactive Protein Total Protein Albumin Troponin T HDL Cholesterol Arterial Blood Glucose Urine WBC (Auto) Urine Creatinine Urine Total Protein Phenytoin Coronavirus (PCR) Crossmatch 07/14/20 07/14/20 07/14/20 05:43 08:04 12:12 WBC RBC Hgb Hct MCHC RDW Lymph % (Auto) [place] % (Auto) Eos % (Auto) Lymph # [place] # Lymph # (Auto) [place] # (Auto) Eos # (Auto) Seg Neutrophils % Seg Neuts % (Manual) Lymphocytes % (Manual) Seg Neutrophils # Seg Neutrophils # Man Lymphocytes # (Manual) Monocytes % (Manual) Eosinophils % (Manual) Monocytes # (Manual) Eosinophils # (Manual) D-Dimer Heparin Anti-Xa Level ABG pH POC ABG pCO2 POC ABG pO2 ABG pO2 ABG HCO3 ABG O2 Saturation ABG Base Excess ABG Hemoglobin ABG Oxyhemoglobin VBG pH ABG Sodium ABG Potassium ABG Glucose Oxyhemoglobin Sodium Potassium Chloride Carbon Dioxide BUN Creatinine Glucose POC Glucose 169 H 185 H Lactic Acid Calcium Ferritin AST Alkaline Phosphatase Magnesium Lactate Dehydrogenase Total Creatine Kinase CK-MB (CK-2) C-Reactive Protein Total Protein Albumin Troponin T HDL Cholesterol Arterial Blood Glucose Urine WBC (Auto) Urine Creatinine Urine Total Protein Phenytoin Coronavirus (PCR) Positive A Crossmatch 07/14/20 07/15/20 07/15/20 17:23 00:04 06:06 WBC RBC Hgb Hct MCHC RDW Lymph % (Auto) [place] % (Auto) Eos % (Auto) Lymph # [place] # Lymph # (Auto) [place] # (Auto) Eos # (Auto) Seg Neutrophils % Seg Neuts % (Manual) Lymphocytes % (Manual) Seg Neutrophils # Seg Neutrophils # Man Lymphocytes # (Manual) Monocytes % (Manual) Eosinophils % (Manual) Monocytes # (Manual) Eosinophils # (Manual) D-Dimer Heparin Anti-Xa Level ABG pH POC ABG pCO2 POC ABG pO2 ABG pO2 ABG HCO3 ABG O2 Saturation ABG Base Excess ABG Hemoglobin ABG Oxyhemoglobin VBG pH ABG Sodium ABG Potassium ABG Glucose Oxyhemoglobin Sodium Potassium Chloride Carbon Dioxide BUN Creatinine Glucose POC Glucose 138 H 121 H 140 H Lactic Acid Calcium Ferritin AST Alkaline Phosphatase Magnesium Lactate Dehydrogenase Total Creatine Kinase CK-MB (CK-2) C-Reactive Protein Total Protein Albumin Troponin T HDL Cholesterol Arterial Blood Glucose Urine WBC (Auto) Urine Creatinine Urine Total Protein Phenytoin Coronavirus (PCR) Crossmatch 07/15/20 07/15/20 07/15/20 12:00 17:53 23:53 WBC RBC Hgb Hct MCHC RDW Lymph % (Auto) [place] % (Auto) Eos % (Auto) Lymph # [place] # Lymph # (Auto) [place] # (Auto) Eos # (Auto) Seg Neutrophils % Seg Neuts % (Manual) Lymphocytes % (Manual) Seg Neutrophils # Seg Neutrophils # Man Lymphocytes # (Manual) Monocytes % (Manual) Eosinophils % (Manual) Monocytes # (Manual) Eosinophils # (Manual) D-Dimer Heparin Anti-Xa Level ABG pH POC ABG pCO2 POC ABG pO2 ABG pO2 ABG HCO3 ABG O2 Saturation ABG Base Excess ABG Hemoglobin ABG Oxyhemoglobin VBG pH ABG Sodium ABG Potassium ABG Glucose Oxyhemoglobin Sodium Potassium Chloride Carbon Dioxide BUN Creatinine Glucose POC Glucose 137 H 161 H 156 H Lactic Acid Calcium Ferritin AST Alkaline Phosphatase Magnesium Lactate Dehydrogenase Total Creatine Kinase CK-MB (CK-2) C-Reactive Protein Total Protein Albumin Troponin T HDL Cholesterol Arterial Blood Glucose Urine WBC (Auto) Urine Creatinine Urine Total Protein Phenytoin Coronavirus (PCR) Crossmatch 07/16/20 07/16/20 07/17/20 05:26 17:44 00:07 WBC RBC Hgb Hct MCHC RDW Lymph % (Auto) [place] % (Auto) Eos % (Auto) Lymph # [place] # Lymph # (Auto) [place] # (Auto) Eos # (Auto) Seg Neutrophils % Seg Neuts % (Manual) Lymphocytes % (Manual) Seg Neutrophils # Seg Neutrophils # Man Lymphocytes # (Manual) Monocytes % (Manual) Eosinophils % (Manual) Monocytes # (Manual) Eosinophils # (Manual) D-Dimer Heparin Anti-Xa Level ABG pH POC ABG pCO2 POC ABG pO2 ABG pO2 ABG HCO3 ABG O2 Saturation ABG Base Excess ABG Hemoglobin ABG Oxyhemoglobin VBG pH ABG Sodium ABG Potassium ABG Glucose Oxyhemoglobin Sodium Potassium Chloride Carbon Dioxide BUN Creatinine Glucose POC Glucose 152 H 126 H 189 H Lactic Acid Calcium Ferritin AST Alkaline Phosphatase Magnesium Lactate Dehydrogenase Total Creatine Kinase CK-MB (CK-2) C-Reactive Protein Total Protein Albumin Troponin T HDL Cholesterol Arterial Blood Glucose Urine WBC (Auto) Urine Creatinine Urine Total Protein Phenytoin Coronavirus (PCR) Crossmatch 07/17/20 07/17/20 07/17/20 12:06 18:20 23:25 WBC RBC Hgb Hct MCHC RDW Lymph % (Auto) [place] % (Auto) Eos % (Auto) Lymph # [place] # Lymph # (Auto) [place] # (Auto) Eos # (Auto) Seg Neutrophils % Seg Neuts % (Manual) Lymphocytes % (Manual) Seg Neutrophils # Seg Neutrophils # Man Lymphocytes # (Manual) Monocytes % (Manual) Eosinophils % (Manual) Monocytes # (Manual) Eosinophils # (Manual) D-Dimer Heparin Anti-Xa Level ABG pH POC ABG pCO2 POC ABG pO2 ABG pO2 ABG HCO3 ABG O2 Saturation ABG Base Excess ABG Hemoglobin ABG Oxyhemoglobin VBG pH ABG Sodium ABG Potassium ABG Glucose Oxyhemoglobin Sodium Potassium Chloride Carbon Dioxide BUN Creatinine Glucose POC Glucose 155 H 206 H 161 H Lactic Acid Calcium Ferritin AST Alkaline Phosphatase Magnesium Lactate Dehydrogenase Total Creatine Kinase CK-MB (CK-2) C-Reactive Protein Total Protein Albumin Troponin T HDL Cholesterol Arterial Blood Glucose Urine WBC (Auto) Urine Creatinine Urine Total Protein Phenytoin Coronavirus (PCR) Crossmatch 07/18/20 07/18/20 07/18/20 04:24 05:16 11:53 WBC RBC Hgb Hct MCHC RDW Lymph % (Auto) [place] % (Auto) Eos % (Auto) Lymph # [place] # Lymph # (Auto) [place] # (Auto) Eos # (Auto) Seg Neutrophils % Seg Neuts % (Manual) Lymphocytes % (Manual) Seg Neutrophils # Seg Neutrophils # Man Lymphocytes # (Manual) Monocytes % (Manual) Eosinophils % (Manual) Monocytes # (Manual) Eosinophils # (Manual) D-Dimer Heparin Anti-Xa Level ABG pH POC ABG pCO2 POC ABG pO2 ABG pO2 ABG HCO3 ABG O2 Saturation ABG Base Excess ABG Hemoglobin 8.8 L ABG Oxyhemoglobin VBG pH ABG Sodium 131.6 L ABG Potassium 4.9 H ABG Glucose 131 H Oxyhemoglobin Sodium Potassium Chloride Carbon Dioxide BUN Creatinine Glucose POC Glucose 140 H 176 H Lactic Acid Calcium Ferritin AST Alkaline Phosphatase Magnesium Lactate Dehydrogenase Total Creatine Kinase CK-MB (CK-2) C-Reactive Protein Total Protein Albumin Troponin T HDL Cholesterol Arterial Blood Glucose 131 H Urine WBC (Auto) Urine Creatinine Urine Total Protein Phenytoin Coronavirus (PCR) Crossmatch 07/18/20 07/18/20 07/19/20 18:11 23:51 01:05 WBC RBC 2.76 L Hgb 7.9 L Hct 24.5 L MCHC RDW 17.6 H Lymph % (Auto) 11.6 L [place] % (Auto) 13.1 H Eos % (Auto) Lymph # [place] # Lymph # (Auto) 1.0 L [place] # (Auto) 1.1 H Eos # (Auto) Seg Neutrophils % 70.9 H Seg Neuts % (Manual) Lymphocytes % (Manual) Seg Neutrophils # Seg Neutrophils # Man Lymphocytes # (Manual) Monocytes % (Manual) Eosinophils % (Manual) Monocytes # (Manual) Eosinophils # (Manual) D-Dimer Heparin Anti-Xa Level ABG pH POC ABG pCO2 POC ABG pO2 ABG pO2 ABG HCO3 ABG O2 Saturation ABG Base Excess ABG Hemoglobin ABG Oxyhemoglobin VBG pH ABG Sodium ABG Potassium ABG Glucose Oxyhemoglobin Sodium Potassium Chloride Carbon Dioxide BUN Creatinine Glucose POC Glucose 143 H 159 H Lactic Acid Calcium Ferritin AST Alkaline Phosphatase Magnesium Lactate Dehydrogenase Total Creatine Kinase CK-MB (CK-2) C-Reactive Protein Total Protein Albumin Troponin T HDL Cholesterol Arterial Blood Glucose Urine WBC (Auto) Urine Creatinine Urine Total Protein Phenytoin Coronavirus (PCR) Crossmatch 07/19/20 07/19/20 07/19/20 01:05 05:54 12:46 WBC RBC Hgb Hct MCHC RDW Lymph % (Auto) [place] % (Auto) Eos % (Auto) Lymph # [place] # Lymph # (Auto) [place] # (Auto) Eos # (Auto) Seg Neutrophils % Seg Neuts % (Manual) Lymphocytes % (Manual) Seg Neutrophils # Seg Neutrophils # Man Lymphocytes # (Manual) Monocytes % (Manual) Eosinophils % (Manual) Monocytes # (Manual) Eosinophils # (Manual) D-Dimer Heparin Anti-Xa Level ABG pH POC ABG pCO2 POC ABG pO2 ABG pO2 ABG HCO3 ABG O2 Saturation ABG Base Excess ABG Hemoglobin ABG Oxyhemoglobin VBG pH ABG Sodium ABG Potassium ABG Glucose Oxyhemoglobin Sodium Potassium Chloride Carbon Dioxide BUN 86 H Creatinine 1.7 H Glucose 149 H POC Glucose 176 H 127 H Lactic Acid Calcium Ferritin AST Alkaline Phosphatase Magnesium Lactate Dehydrogenase Total Creatine Kinase CK-MB (CK-2) C-Reactive Protein Total Protein Albumin Troponin T HDL Cholesterol Arterial Blood Glucose Urine WBC (Auto) Urine Creatinine Urine Total Protein Phenytoin Coronavirus (PCR) Crossmatch 07/19/20 07/20/20 07/20/20 17:48 00:34 05:28 WBC RBC Hgb Hct MCHC RDW Lymph % (Auto) [place] % (Auto) Eos % (Auto) Lymph # [place] # Lymph # (Auto) [place] # (Auto) Eos # (Auto) Seg Neutrophils % Seg Neuts % (Manual) Lymphocytes % (Manual) Seg Neutrophils # Seg Neutrophils # Man Lymphocytes # (Manual) Monocytes % (Manual) Eosinophils % (Manual) Monocytes # (Manual) Eosinophils # (Manual) D-Dimer Heparin Anti-Xa Level ABG pH POC ABG pCO2 POC ABG pO2 ABG pO2 ABG HCO3 ABG O2 Saturation ABG Base Excess ABG Hemoglobin ABG Oxyhemoglobin VBG pH ABG Sodium ABG Potassium ABG Glucose Oxyhemoglobin Sodium Potassium Chloride Carbon Dioxide BUN Creatinine Glucose POC Glucose 123 H 147 H 110 H Lactic Acid Calcium Ferritin AST Alkaline Phosphatase Magnesium Lactate Dehydrogenase Total Creatine Kinase CK-MB (CK-2) C-Reactive Protein Total Protein Albumin Troponin T HDL Cholesterol Arterial Blood Glucose Urine WBC (Auto) Urine Creatinine Urine Total Protein Phenytoin Coronavirus (PCR) Crossmatch 07/20/20 07/20/20 07/21/20 12:10 17:00 00:11 WBC RBC Hgb Hct MCHC RDW Lymph % (Auto) [place] % (Auto) Eos % (Auto) Lymph # [place] # Lymph # (Auto) [place] # (Auto) Eos # (Auto) Seg Neutrophils % Seg Neuts % (Manual) Lymphocytes % (Manual) Seg Neutrophils # Seg Neutrophils # Man Lymphocytes # (Manual) Monocytes % (Manual) Eosinophils % (Manual) Monocytes # (Manual) Eosinophils # (Manual) D-Dimer Heparin Anti-Xa Level ABG pH POC ABG pCO2 POC ABG pO2 ABG pO2 ABG HCO3 ABG O2 Saturation ABG Base Excess ABG Hemoglobin ABG Oxyhemoglobin VBG pH ABG Sodium ABG Potassium ABG Glucose Oxyhemoglobin Sodium Potassium Chloride Carbon Dioxide BUN Creatinine Glucose POC Glucose 149 H 173 H 128 H Lactic Acid Calcium Ferritin AST Alkaline Phosphatase Magnesium Lactate Dehydrogenase Total Creatine Kinase CK-MB (CK-2) C-Reactive Protein Total Protein Albumin Troponin T HDL Cholesterol Arterial Blood Glucose Urine WBC (Auto) Urine Creatinine Urine Total Protein Phenytoin Coronavirus (PCR) Crossmatch 07/21/20 07/21/20 07/21/20 05:30 12:21 18:17 WBC RBC Hgb Hct MCHC RDW Lymph % (Auto) [place] % (Auto) Eos % (Auto) Lymph # [place] # Lymph # (Auto) [place] # (Auto) Eos # (Auto) Seg Neutrophils % Seg Neuts % (Manual) Lymphocytes % (Manual) Seg Neutrophils # Seg Neutrophils # Man Lymphocytes # (Manual) Monocytes % (Manual) Eosinophils % (Manual) Monocytes # (Manual) Eosinophils # (Manual) D-Dimer Heparin Anti-Xa Level ABG pH POC ABG pCO2 POC ABG pO2 ABG pO2 ABG HCO3 ABG O2 Saturation ABG Base Excess ABG Hemoglobin ABG Oxyhemoglobin VBG pH ABG Sodium ABG Potassium ABG Glucose Oxyhemoglobin Sodium Potassium Chloride Carbon Dioxide BUN Creatinine Glucose POC Glucose 153 H 144 H 160 H Lactic Acid Calcium Ferritin AST Alkaline Phosphatase Magnesium Lactate Dehydrogenase Total Creatine Kinase CK-MB (CK-2) C-Reactive Protein Total Protein Albumin Troponin T HDL Cholesterol Arterial Blood Glucose Urine WBC (Auto) Urine Creatinine Urine Total Protein Phenytoin Coronavirus (PCR) Crossmatch 07/22/20 07/22/20 07/22/20 00:45 05:52 12:03 WBC RBC Hgb Hct MCHC RDW Lymph % (Auto) [place] % (Auto) Eos % (Auto) Lymph # [place] # Lymph # (Auto) [place] # (Auto) Eos # (Auto) Seg Neutrophils % Seg Neuts % (Manual) Lymphocytes % (Manual) Seg Neutrophils # Seg Neutrophils # Man Lymphocytes # (Manual) Monocytes % (Manual) Eosinophils % (Manual) Monocytes # (Manual) Eosinophils # (Manual) D-Dimer Heparin Anti-Xa Level ABG pH POC ABG pCO2 POC ABG pO2 ABG pO2 ABG HCO3 ABG O2 Saturation ABG Base Excess ABG Hemoglobin ABG Oxyhemoglobin VBG pH ABG Sodium ABG Potassium ABG Glucose Oxyhemoglobin Sodium Potassium Chloride Carbon Dioxide BUN Creatinine Glucose POC Glucose 128 H 126 H 157 H Lactic Acid Calcium Ferritin AST Alkaline Phosphatase Magnesium Lactate Dehydrogenase Total Creatine Kinase CK-MB (CK-2) C-Reactive Protein Total Protein Albumin Troponin T HDL Cholesterol Arterial Blood Glucose Urine WBC (Auto) Urine Creatinine Urine Total Protein Phenytoin Coronavirus (PCR) Crossmatch 07/22/20 07/22/20 07/23/20 18:23 23:20 06:06 WBC RBC Hgb Hct MCHC RDW Lymph % (Auto) [place] % (Auto) Eos % (Auto) Lymph # [place] # Lymph # (Auto) [place] # (Auto) Eos # (Auto) Seg Neutrophils % Seg Neuts % (Manual) Lymphocytes % (Manual) Seg Neutrophils # Seg Neutrophils # Man Lymphocytes # (Manual) Monocytes % (Manual) Eosinophils % (Manual) Monocytes # (Manual) Eosinophils # (Manual) D-Dimer Heparin Anti-Xa Level ABG pH POC ABG pCO2 POC ABG pO2 ABG pO2 ABG HCO3 ABG O2 Saturation ABG Base Excess ABG Hemoglobin ABG Oxyhemoglobin VBG pH ABG Sodium ABG Potassium ABG Glucose Oxyhemoglobin Sodium Potassium Chloride Carbon Dioxide BUN Creatinine Glucose POC Glucose 152 H 122 H 143 H Lactic Acid Calcium Ferritin AST Alkaline Phosphatase Magnesium Lactate Dehydrogenase Total Creatine Kinase CK-MB (CK-2) C-Reactive Protein Total Protein Albumin Troponin T HDL Cholesterol Arterial Blood Glucose Urine WBC (Auto) Urine Creatinine Urine Total Protein Phenytoin Coronavirus (PCR) Crossmatch 07/23/20 07/23/20 07/23/20 12:11 17:38 19:23 WBC RBC Hgb Hct MCHC RDW Lymph % (Auto) [place] % (Auto) Eos % (Auto) Lymph # [place] # Lymph # (Auto) [place] # (Auto) Eos # (Auto) Seg Neutrophils % Seg Neuts % (Manual) Lymphocytes % (Manual) Seg Neutrophils # Seg Neutrophils # Man Lymphocytes # (Manual) Monocytes % (Manual) Eosinophils % (Manual) Monocytes # (Manual) Eosinophils # (Manual) D-Dimer Heparin Anti-Xa Level ABG pH POC ABG pCO2 POC ABG pO2 ABG pO2 ABG HCO3 ABG O2 Saturation ABG Base Excess ABG Hemoglobin ABG Oxyhemoglobin VBG pH ABG Sodium ABG Potassium ABG Glucose Oxyhemoglobin Sodium 129 L D Potassium 5.8 H Chloride 95.6 L Carbon Dioxide BUN 98 H Creatinine 2.1 H Glucose 167 H POC Glucose 210 H 181 H Lactic Acid Calcium Ferritin AST Alkaline Phosphatase Magnesium Lactate Dehydrogenase Total Creatine Kinase CK-MB (CK-2) C-Reactive Protein Total Protein Albumin 2.2 L Troponin T HDL Cholesterol Arterial Blood Glucose Urine WBC (Auto) Urine Creatinine Urine Total Protein Phenytoin Coronavirus (PCR) Crossmatch 07/24/20 07/24/20 07/24/20 00:00 04:29 04:29 WBC RBC 2.53 L Hgb 7.5 L Hct 22.8 L MCHC RDW 16.8 H Lymph % (Auto) 9.4 L [place] % (Auto) 10.4 H Eos % (Auto) 5.9 H Lymph # [place] # Lymph # (Auto) 0.8 L [place] # (Auto) 0.9 H Eos # (Auto) 0.5 H Seg Neutrophils % 73.5 H Seg Neuts % (Manual) Lymphocytes % (Manual) Seg Neutrophils # Seg Neutrophils # Man Lymphocytes # (Manual) Monocytes % (Manual) Eosinophils % (Manual) Monocytes # (Manual) Eosinophils # (Manual) D-Dimer Heparin Anti-Xa Level ABG pH POC ABG pCO2 POC ABG pO2 ABG pO2 ABG HCO3 ABG O2 Saturation ABG Base Excess ABG Hemoglobin ABG Oxyhemoglobin VBG pH ABG Sodium ABG Potassium ABG Glucose Oxyhemoglobin Sodium Potassium Chloride Carbon Dioxide BUN Creatinine Glucose POC Glucose 201 H Lactic Acid Calcium Ferritin AST Alkaline Phosphatase Magnesium Lactate Dehydrogenase Total Creatine Kinase CK-MB (CK-2) C-Reactive Protein Total Protein Albumin Troponin T HDL Cholesterol Arterial Blood Glucose Urine WBC (Auto) Urine Creatinine Urine Total Protein Phenytoin 9.4 L Coronavirus (PCR) Crossmatch 07/24/20 07/24/20 07/24/20 04:29 05:11 12:14 WBC RBC Hgb Hct MCHC RDW Lymph % (Auto) [place] % (Auto) Eos % (Auto) Lymph # [place] # Lymph # (Auto) [place] # (Auto) Eos # (Auto) Seg Neutrophils % Seg Neuts % (Manual) Lymphocytes % (Manual) Seg Neutrophils # Seg Neutrophils # Man Lymphocytes # (Manual) Monocytes % (Manual) Eosinophils % (Manual) Monocytes # (Manual) Eosinophils # (Manual) D-Dimer Heparin Anti-Xa Level ABG pH POC ABG pCO2 POC ABG pO2 ABG pO2 ABG HCO3 ABG O2 Saturation ABG Base Excess ABG Hemoglobin ABG Oxyhemoglobin VBG pH ABG Sodium ABG Potassium ABG Glucose Oxyhemoglobin Sodium 134 L Potassium 5.5 H Chloride Carbon Dioxide BUN 97 H Creatinine 2.2 H Glucose 149 H POC Glucose 142 H 146 H Lactic Acid Calcium Ferritin AST Alkaline Phosphatase Magnesium 2.60 H Lactate Dehydrogenase Total Creatine Kinase CK-MB (CK-2) C-Reactive Protein Total Protein Albumin Troponin T HDL Cholesterol Arterial Blood Glucose Urine WBC (Auto) Urine Creatinine Urine Total Protein Phenytoin Coronavirus (PCR) Crossmatch 07/24/20 07/24/20 07/25/20 18:12 21:00 00:08 WBC RBC Hgb Hct MCHC RDW Lymph % (Auto) [place] % (Auto) Eos % (Auto) Lymph # [place] # Lymph # (Auto) [place] # (Auto) Eos # (Auto) Seg Neutrophils % Seg Neuts % (Manual) Lymphocytes % (Manual) Seg Neutrophils # Seg Neutrophils # Man Lymphocytes # (Manual) Monocytes % (Manual) Eosinophils % (Manual) Monocytes # (Manual) Eosinophils # (Manual) D-Dimer Heparin Anti-Xa Level ABG pH POC ABG pCO2 POC ABG pO2 ABG pO2 ABG HCO3 ABG O2 Saturation ABG Base Excess ABG Hemoglobin ABG Oxyhemoglobin VBG pH ABG Sodium ABG Potassium ABG Glucose Oxyhemoglobin Sodium Potassium Chloride Carbon Dioxide BUN Creatinine Glucose POC Glucose 182 H 170 H 129 H Lactic Acid Calcium Ferritin AST Alkaline Phosphatase Magnesium Lactate Dehydrogenase Total Creatine Kinase CK-MB (CK-2) C-Reactive Protein Total Protein Albumin Troponin T HDL Cholesterol Arterial Blood Glucose Urine WBC (Auto) Urine Creatinine Urine Total Protein Phenytoin Coronavirus (PCR) Crossmatch 07/25/20 07/25/20 07/25/20 04:24 04:24 12:19 WBC RBC 2.51 L Hgb 7.5 L Hct 22.3 L MCHC RDW 17.4 H Lymph % (Auto) [place] % (Auto) Eos % (Auto) Lymph # [place] # Lymph # (Auto) [place] # (Auto) Eos # (Auto) Seg Neutrophils % Seg Neuts % (Manual) Lymphocytes % (Manual) Seg Neutrophils # Seg Neutrophils # Man Lymphocytes # (Manual) Monocytes % (Manual) Eosinophils % (Manual) Monocytes # (Manual) Eosinophils # (Manual) D-Dimer Heparin Anti-Xa Level ABG pH POC ABG pCO2 POC ABG pO2 ABG pO2 ABG HCO3 ABG O2 Saturation ABG Base Excess ABG Hemoglobin ABG Oxyhemoglobin VBG pH ABG Sodium ABG Potassium ABG Glucose Oxyhemoglobin Sodium 132 L Potassium Chloride 95.1 L Carbon Dioxide 21 L BUN 95 H Creatinine 2.5 H Glucose 108 H POC Glucose 122 H Lactic Acid Calcium Ferritin AST Alkaline Phosphatase Magnesium Lactate Dehydrogenase Total Creatine Kinase CK-MB (CK-2) C-Reactive Protein Total Protein Albumin Troponin T HDL Cholesterol Arterial Blood Glucose Urine WBC (Auto) Urine Creatinine Urine Total Protein Phenytoin Coronavirus (PCR) Crossmatch 07/25/20 07/25/20 07/26/20 18:11 23:24 04:22 WBC RBC Hgb Hct MCHC RDW Lymph % (Auto) [place] % (Auto) Eos % (Auto) Lymph # [place] # Lymph # (Auto) [place] # (Auto) Eos # (Auto) Seg Neutrophils % Seg Neuts % (Manual) Lymphocytes % (Manual) Seg Neutrophils # Seg Neutrophils # Man Lymphocytes # (Manual) Monocytes % (Manual) Eosinophils % (Manual) Monocytes # (Manual) Eosinophils # (Manual) D-Dimer Heparin Anti-Xa Level ABG pH POC ABG pCO2 POC ABG pO2 ABG pO2 ABG HCO3 ABG O2 Saturation ABG Base Excess ABG Hemoglobin ABG Oxyhemoglobin VBG pH ABG Sodium ABG Potassium ABG Glucose Oxyhemoglobin Sodium 132 L Potassium Chloride 96.2 L Carbon Dioxide 21 L BUN 99 H Creatinine 2.5 H Glucose 132 H POC Glucose 137 H 117 H Lactic Acid Calcium 8.2 L Ferritin AST Alkaline Phosphatase Magnesium Lactate Dehydrogenase Total Creatine Kinase CK-MB (CK-2) C-Reactive Protein Total Protein Albumin Troponin T HDL Cholesterol Arterial Blood Glucose Urine WBC (Auto) Urine Creatinine Urine Total Protein Phenytoin Coronavirus (PCR) Crossmatch 07/26/20 07/26/20 07/26/20 05:58 12:21 17:31 WBC RBC Hgb Hct MCHC RDW Lymph % (Auto) [place] % (Auto) Eos % (Auto) Lymph # [place] # Lymph # (Auto) [place] # (Auto) Eos # (Auto) Seg Neutrophils % Seg Neuts % (Manual) Lymphocytes % (Manual) Seg Neutrophils # Seg Neutrophils # Man Lymphocytes # (Manual) Monocytes % (Manual) Eosinophils % (Manual) Monocytes # (Manual) Eosinophils # (Manual) D-Dimer Heparin Anti-Xa Level ABG pH POC ABG pCO2 POC ABG pO2 ABG pO2 ABG HCO3 ABG O2 Saturation ABG Base Excess ABG Hemoglobin ABG Oxyhemoglobin VBG pH ABG Sodium ABG Potassium ABG Glucose Oxyhemoglobin Sodium Potassium Chloride Carbon Dioxide BUN Creatinine Glucose POC Glucose 110 H 142 H 180 H Lactic Acid Calcium Ferritin AST Alkaline Phosphatase Magnesium Lactate Dehydrogenase Total Creatine Kinase CK-MB (CK-2) C-Reactive Protein Total Protein Albumin Troponin T HDL Cholesterol Arterial Blood Glucose Urine WBC (Auto) Urine Creatinine Urine Total Protein Phenytoin Coronavirus (PCR) Crossmatch 07/26/20 07/27/20 07/27/20 23:36 03:36 05:36 WBC RBC 2.49 L Hgb 7.3 L Hct 22.2 L MCHC RDW 17.2 H Lymph % (Auto) 11.0 L [place] % (Auto) 11.7 H Eos % (Auto) Lymph # [place] # Lymph # (Auto) 0.8 L [place] # (Auto) 0.9 H Eos # (Auto) Seg Neutrophils % 72.3 H Seg Neuts % (Manual) Lymphocytes % (Manual) Seg Neutrophils # Seg Neutrophils # Man Lymphocytes # (Manual) Monocytes % (Manual) Eosinophils % (Manual) Monocytes # (Manual) Eosinophils # (Manual) D-Dimer Heparin Anti-Xa Level ABG pH POC ABG pCO2 POC ABG pO2 ABG pO2 ABG HCO3 ABG O2 Saturation ABG Base Excess ABG Hemoglobin ABG Oxyhemoglobin VBG pH ABG Sodium ABG Potassium ABG Glucose Oxyhemoglobin Sodium Potassium Chloride Carbon Dioxide BUN Creatinine Glucose POC Glucose 162 H 118 H Lactic Acid Calcium Ferritin AST Alkaline Phosphatase Magnesium Lactate Dehydrogenase Total Creatine Kinase CK-MB (CK-2) C-Reactive Protein Total Protein Albumin Troponin T HDL Cholesterol Arterial Blood Glucose Urine WBC (Auto) Urine Creatinine Urine Total Protein Phenytoin Coronavirus (PCR) Crossmatch 07/27/20 07/27/20 07/27/20 05:36 12:19 17:36 WBC RBC Hgb Hct MCHC RDW Lymph % (Auto) [place] % (Auto) Eos % (Auto) Lymph # [place] # Lymph # (Auto) [place] # (Auto) Eos # (Auto) Seg Neutrophils % Seg Neuts % (Manual) Lymphocytes % (Manual) Seg Neutrophils # Seg Neutrophils # Man Lymphocytes # (Manual) Monocytes % (Manual) Eosinophils % (Manual) Monocytes # (Manual) Eosinophils # (Manual) D-Dimer Heparin Anti-Xa Level ABG pH POC ABG pCO2 POC ABG pO2 ABG pO2 ABG HCO3 ABG O2 Saturation ABG Base Excess ABG Hemoglobin ABG Oxyhemoglobin VBG pH ABG Sodium ABG Potassium ABG Glucose Oxyhemoglobin Sodium 135 L Potassium 5.3 H Chloride Carbon Dioxide 21 L BUN 103 H Creatinine 2.6 H Glucose 113 H POC Glucose 131 H 151 H Lactic Acid Calcium 8.1 L Ferritin AST Alkaline Phosphatase Magnesium Lactate Dehydrogenase Total Creatine Kinase CK-MB (CK-2) C-Reactive Protein Total Protein Albumin Troponin T HDL Cholesterol Arterial Blood Glucose Urine WBC (Auto) Urine Creatinine Urine Total Protein Phenytoin Coronavirus (PCR) Crossmatch 07/27/20 07/28/20 07/28/20 23:29 04:30 04:30 WBC RBC 2.50 L Hgb 7.3 L Hct 22.2 L MCHC RDW 17.3 H Lymph % (Auto) 8.7 L [place] % (Auto) 8.3 H Eos % (Auto) Lymph # [place] # Lymph # (Auto) 0.7 L [place] # (Auto) Eos # (Auto) Seg Neutrophils % 79.1 H Seg Neuts % (Manual) Lymphocytes % (Manual) Seg Neutrophils # Seg Neutrophils # Man Lymphocytes # (Manual) Monocytes % (Manual) Eosinophils % (Manual) Monocytes # (Manual) Eosinophils # (Manual) D-Dimer Heparin Anti-Xa Level ABG pH POC ABG pCO2 POC ABG pO2 ABG pO2 ABG HCO3 ABG O2 Saturation ABG Base Excess ABG Hemoglobin ABG Oxyhemoglobin VBG pH ABG Sodium ABG Potassium ABG Glucose Oxyhemoglobin Sodium 135 L Potassium 5.2 H Chloride 96.8 L Carbon Dioxide 20 L BUN 107 H Creatinine 2.9 H Glucose POC Glucose 124 H Lactic Acid Calcium 8.2 L Ferritin AST Alkaline Phosphatase Magnesium 2.70 H Lactate Dehydrogenase Total Creatine Kinase CK-MB (CK-2) C-Reactive Protein Total Protein Albumin Troponin T HDL Cholesterol Arterial Blood Glucose Urine WBC (Auto) Urine Creatinine Urine Total Protein Phenytoin Coronavirus (PCR) Crossmatch 07/28/20 07/29/20 07/29/20 17:35 00:11 06:45 WBC RBC Hgb Hct MCHC RDW Lymph % (Auto) [place] % (Auto) Eos % (Auto) Lymph # [place] # Lymph # (Auto) [place] # (Auto) Eos # (Auto) Seg Neutrophils % Seg Neuts % (Manual) Lymphocytes % (Manual) Seg Neutrophils # Seg Neutrophils # Man Lymphocytes # (Manual) Monocytes % (Manual) Eosinophils % (Manual) Monocytes # (Manual) Eosinophils # (Manual) D-Dimer Heparin Anti-Xa Level ABG pH POC ABG pCO2 POC ABG pO2 ABG pO2 ABG HCO3 ABG O2 Saturation ABG Base Excess ABG Hemoglobin ABG Oxyhemoglobin VBG pH ABG Sodium ABG Potassium ABG Glucose Oxyhemoglobin Sodium Potassium Chloride Carbon Dioxide BUN Creatinine Glucose POC Glucose 146 H 143 H 179 H Lactic Acid Calcium Ferritin AST Alkaline Phosphatase Magnesium Lactate Dehydrogenase Total Creatine Kinase CK-MB (CK-2) C-Reactive Protein Total Protein Albumin Troponin T HDL Cholesterol Arterial Blood Glucose Urine WBC (Auto) Urine Creatinine Urine Total Protein Phenytoin Coronavirus (PCR) Crossmatch 07/29/20 07/29/20 07/29/20 11:54 13:01 13:01 WBC RBC 2.40 L Hgb 7.1 L Hct 20.9 L MCHC RDW 17.5 H Lymph % (Auto) [place] % (Auto) Eos % (Auto) Lymph # [place] # Lymph # (Auto) [place] # (Auto) Eos # (Auto) Seg Neutrophils % Seg Neuts % (Manual) 86.0 H Lymphocytes % (Manual) 6.0 L Seg Neutrophils # Seg Neutrophils # Man 8.9 H Lymphocytes # (Manual) 0.6 L Monocytes % (Manual) 8.0 H Eosinophils % (Manual) Monocytes # (Manual) Eosinophils # (Manual) D-Dimer Heparin Anti-Xa Level ABG pH POC ABG pCO2 POC ABG pO2 ABG pO2 ABG HCO3 ABG O2 Saturation ABG Base Excess ABG Hemoglobin ABG Oxyhemoglobin VBG pH ABG Sodium ABG Potassium ABG Glucose Oxyhemoglobin Sodium 129 L Potassium Chloride 92.9 L Carbon Dioxide BUN 112 H Creatinine 3.0 H Glucose 142 H POC Glucose 170 H Lactic Acid Calcium 7.9 L Ferritin AST Alkaline Phosphatase Magnesium Lactate Dehydrogenase Total Creatine Kinase CK-MB (CK-2) C-Reactive Protein Total Protein Albumin Troponin T HDL Cholesterol Arterial Blood Glucose Urine WBC (Auto) Urine Creatinine Urine Total Protein Phenytoin Coronavirus (PCR) Crossmatch 07/29/20 07/30/20 07/30/20 22:45 05:01 11:45 WBC RBC Hgb Hct MCHC RDW Lymph % (Auto) [place] % (Auto) Eos % (Auto) Lymph # [place] # Lymph # (Auto) [place] # (Auto) Eos # (Auto) Seg Neutrophils % Seg Neuts % (Manual) Lymphocytes % (Manual) Seg Neutrophils # Seg Neutrophils # Man Lymphocytes # (Manual) Monocytes % (Manual) Eosinophils % (Manual) Monocytes # (Manual) Eosinophils # (Manual) D-Dimer Heparin Anti-Xa Level ABG pH POC ABG pCO2 POC ABG pO2 ABG pO2 ABG HCO3 ABG O2 Saturation ABG Base Excess ABG Hemoglobin ABG Oxyhemoglobin VBG pH ABG Sodium ABG Potassium ABG Glucose Oxyhemoglobin Sodium Potassium Chloride Carbon Dioxide BUN Creatinine Glucose POC Glucose 129 H 150 H 130 H Lactic Acid Calcium Ferritin AST Alkaline Phosphatase Magnesium Lactate Dehydrogenase Total Creatine Kinase CK-MB (CK-2) C-Reactive Protein Total Protein Albumin Troponin T HDL Cholesterol Arterial Blood Glucose Urine WBC (Auto) Urine Creatinine Urine Total Protein Phenytoin Coronavirus (PCR) Crossmatch 07/30/20 07/30/20 07/30/20 17:54 21:26 23:58 WBC RBC Hgb Hct MCHC RDW Lymph % (Auto) [place] % (Auto) Eos % (Auto) Lymph # [place] # Lymph # (Auto) [place] # (Auto) Eos # (Auto) Seg Neutrophils % Seg Neuts % (Manual) Lymphocytes % (Manual) Seg Neutrophils # Seg Neutrophils # Man Lymphocytes # (Manual) Monocytes % (Manual) Eosinophils % (Manual) Monocytes # (Manual) Eosinophils # (Manual) D-Dimer Heparin Anti-Xa Level ABG pH POC ABG pCO2 POC ABG pO2 ABG pO2 ABG HCO3 ABG O2 Saturation ABG Base Excess ABG Hemoglobin ABG Oxyhemoglobin VBG pH ABG Sodium ABG Potassium ABG Glucose Oxyhemoglobin Sodium Potassium Chloride Carbon Dioxide BUN Creatinine Glucose POC Glucose 143 H 124 H 142 H Lactic Acid Calcium Ferritin AST Alkaline Phosphatase Magnesium Lactate Dehydrogenase Total Creatine Kinase CK-MB (CK-2) C-Reactive Protein Total Protein Albumin Troponin T HDL Cholesterol Arterial Blood Glucose Urine WBC (Auto) Urine Creatinine Urine Total Protein Phenytoin Coronavirus (PCR) Crossmatch 07/31/20 07/31/20 07/31/20 05:43 11:35 18:07 WBC RBC Hgb Hct MCHC RDW Lymph % (Auto) [place] % (Auto) Eos % (Auto) Lymph # [place] # Lymph # (Auto) [place] # (Auto) Eos # (Auto) Seg Neutrophils % Seg Neuts % (Manual) Lymphocytes % (Manual) Seg Neutrophils # Seg Neutrophils # Man Lymphocytes # (Manual) Monocytes % (Manual) Eosinophils % (Manual) Monocytes # (Manual) Eosinophils # (Manual) D-Dimer Heparin Anti-Xa Level ABG pH POC ABG pCO2 POC ABG pO2 ABG pO2 ABG HCO3 ABG O2 Saturation ABG Base Excess ABG Hemoglobin ABG Oxyhemoglobin VBG pH ABG Sodium ABG Potassium ABG Glucose Oxyhemoglobin Sodium Potassium Chloride Carbon Dioxide BUN Creatinine Glucose POC Glucose 152 H 179 H 129 H Lactic Acid Calcium Ferritin AST Alkaline Phosphatase Magnesium Lactate Dehydrogenase Total Creatine Kinase CK-MB (CK-2) C-Reactive Protein Total Protein Albumin Troponin T HDL Cholesterol Arterial Blood Glucose Urine WBC (Auto) Urine Creatinine Urine Total Protein Phenytoin Coronavirus (PCR) Crossmatch 07/31/20 07/31/20 08/01/20 21:30 22:12 00:25 WBC RBC Hgb Hct MCHC RDW Lymph % (Auto) [place] % (Auto) Eos % (Auto) Lymph # [place] # Lymph # (Auto) [place] # (Auto) Eos # (Auto) Seg Neutrophils % Seg Neuts % (Manual) Lymphocytes % (Manual) Seg Neutrophils # Seg Neutrophils # Man Lymphocytes # (Manual) Monocytes % (Manual) Eosinophils % (Manual) Monocytes # (Manual) Eosinophils # (Manual) D-Dimer Heparin Anti-Xa Level ABG pH POC ABG pCO2 POC ABG pO2 ABG pO2 ABG HCO3 ABG O2 Saturation ABG Base Excess ABG Hemoglobin ABG Oxyhemoglobin VBG pH ABG Sodium ABG Potassium ABG Glucose Oxyhemoglobin Sodium Potassium Chloride Carbon Dioxide BUN Creatinine Glucose POC Glucose 143 H 122 H 134 H Lactic Acid Calcium Ferritin AST Alkaline Phosphatase Magnesium Lactate Dehydrogenase Total Creatine Kinase CK-MB (CK-2) C-Reactive Protein Total Protein Albumin Troponin T HDL Cholesterol Arterial Blood Glucose Urine WBC (Auto) Urine Creatinine Urine Total Protein Phenytoin Coronavirus (PCR) Crossmatch 08/01/20 08/01/20 08/01/20 04:43 05:41 12:23 WBC RBC Hgb Hct MCHC RDW Lymph % (Auto) [place] % (Auto) Eos % (Auto) Lymph # [place] # Lymph # (Auto) [place] # (Auto) Eos # (Auto) Seg Neutrophils % Seg Neuts % (Manual) Lymphocytes % (Manual) Seg Neutrophils # Seg Neutrophils # Man Lymphocytes # (Manual) Monocytes % (Manual) Eosinophils % (Manual) Monocytes # (Manual) Eosinophils # (Manual) D-Dimer Heparin Anti-Xa Level ABG pH POC ABG pCO2 POC ABG pO2 ABG pO2 ABG HCO3 ABG O2 Saturation ABG Base Excess ABG Hemoglobin ABG Oxyhemoglobin VBG pH ABG Sodium ABG Potassium ABG Glucose Oxyhemoglobin Sodium 128 L Potassium 5.8 H Chloride 90.5 L Carbon Dioxide 19 L BUN 122 H Creatinine 3.4 H Glucose 124 H POC Glucose 130 H 128 H Lactic Acid Calcium 8.0 L Ferritin AST Alkaline Phosphatase Magnesium Lactate Dehydrogenase Total Creatine Kinase CK-MB (CK-2) C-Reactive Protein Total Protein Albumin Troponin T HDL Cholesterol Arterial Blood Glucose Urine WBC (Auto) Urine Creatinine Urine Total Protein Phenytoin Coronavirus (PCR) Crossmatch 08/01/20 08/02/20 08/02/20 17:28 00:06 05:32 WBC RBC Hgb Hct MCHC RDW Lymph % (Auto) [place] % (Auto) Eos % (Auto) Lymph # [place] # Lymph # (Auto) [place] # (Auto) Eos # (Auto) Seg Neutrophils % Seg Neuts % (Manual) Lymphocytes % (Manual) Seg Neutrophils # Seg Neutrophils # Man Lymphocytes # (Manual) Monocytes % (Manual) Eosinophils % (Manual) Monocytes # (Manual) Eosinophils # (Manual) D-Dimer Heparin Anti-Xa Level ABG pH POC ABG pCO2 POC ABG pO2 ABG pO2 ABG HCO3 ABG O2 Saturation ABG Base Excess ABG Hemoglobin ABG Oxyhemoglobin VBG pH ABG Sodium ABG Potassium ABG Glucose Oxyhemoglobin Sodium Potassium Chloride Carbon Dioxide BUN Creatinine Glucose POC Glucose 121 H 128 H 177 H Lactic Acid Calcium Ferritin AST Alkaline Phosphatase Magnesium Lactate Dehydrogenase Total Creatine Kinase CK-MB (CK-2) C-Reactive Protein Total Protein Albumin Troponin T HDL Cholesterol Arterial Blood Glucose Urine WBC (Auto) Urine Creatinine Urine Total Protein Phenytoin Coronavirus (PCR) Crossmatch 08/02/20 08/02/20 08/03/20 11:25 12:34 00:08 WBC RBC Hgb Hct MCHC RDW Lymph % (Auto) [place] % (Auto) Eos % (Auto) Lymph # [place] # Lymph # (Auto) [place] # (Auto) Eos # (Auto) Seg Neutrophils % Seg Neuts % (Manual) Lymphocytes % (Manual) Seg Neutrophils # Seg Neutrophils # Man Lymphocytes # (Manual) Monocytes % (Manual) Eosinophils % (Manual) Monocytes # (Manual) Eosinophils # (Manual) D-Dimer Heparin Anti-Xa Level ABG pH 7.344 L POC ABG pCO2 POC ABG pO2 ABG pO2 101.1 H ABG HCO3 ABG O2 Saturation ABG Base Excess -4.5 L ABG Hemoglobin 6.6 L ABG Oxyhemoglobin VBG pH ABG Sodium ABG Potassium ABG Glucose Oxyhemoglobin Sodium Potassium Chloride Carbon Dioxide BUN Creatinine Glucose POC Glucose 196 H 141 H Lactic Acid Calcium Ferritin AST Alkaline Phosphatase Magnesium Lactate Dehydrogenase Total Creatine Kinase CK-MB (CK-2) C-Reactive Protein Total Protein Albumin Troponin T HDL Cholesterol Arterial Blood Glucose Urine WBC (Auto) Urine Creatinine Urine Total Protein Phenytoin Coronavirus (PCR) Crossmatch 08/03/20 08/03/20 08/03/20 04:38 04:38 04:38 WBC 14.3 H RBC 2.42 L Hgb 7.0 L Hct 21.5 L MCHC RDW 18.1 H Lymph % (Auto) [place] % (Auto) Eos % (Auto) Lymph # [place] # Lymph # (Auto) [place] # (Auto) Eos # (Auto) Seg Neutrophils % Seg Neuts % (Manual) Lymphocytes % (Manual) Seg Neutrophils # Seg Neutrophils # Man Lymphocytes # (Manual) Monocytes % (Manual) Eosinophils % (Manual) Monocytes # (Manual) Eosinophils # (Manual) D-Dimer Heparin Anti-Xa Level ABG pH POC ABG pCO2 POC ABG pO2 ABG pO2 ABG HCO3 ABG O2 Saturation ABG Base Excess ABG Hemoglobin ABG Oxyhemoglobin VBG pH ABG Sodium ABG Potassium ABG Glucose Oxyhemoglobin Sodium 130 L Potassium Chloride 90.1 L Carbon Dioxide 20 L BUN 105 H Creatinine 3.1 H Glucose 115 H POC Glucose Lactic Acid 0.40 L Calcium 8.2 L Ferritin AST Alkaline Phosphatase Magnesium Lactate Dehydrogenase Total Creatine Kinase CK-MB (CK-2) C-Reactive Protein Total Protein Albumin Troponin T HDL Cholesterol Arterial Blood Glucose Urine WBC (Auto) Urine Creatinine Urine Total Protein Phenytoin Coronavirus (PCR) Crossmatch 08/03/20 08/03/20 08/03/20 05:33 12:04 17:51 WBC RBC Hgb Hct MCHC RDW Lymph % (Auto) [place] % (Auto) Eos % (Auto) Lymph # [place] # Lymph # (Auto) [place] # (Auto) Eos # (Auto) Seg Neutrophils % Seg Neuts % (Manual) Lymphocytes % (Manual) Seg Neutrophils # Seg Neutrophils # Man Lymphocytes # (Manual) Monocytes % (Manual) Eosinophils % (Manual) Monocytes # (Manual) Eosinophils # (Manual) D-Dimer Heparin Anti-Xa Level ABG pH POC ABG pCO2 POC ABG pO2 ABG pO2 ABG HCO3 ABG O2 Saturation ABG Base Excess ABG Hemoglobin ABG Oxyhemoglobin VBG pH ABG Sodium ABG Potassium ABG Glucose Oxyhemoglobin Sodium Potassium Chloride Carbon Dioxide BUN Creatinine Glucose POC Glucose 117 H 115 H 123 H Lactic Acid Calcium Ferritin AST Alkaline Phosphatase Magnesium Lactate Dehydrogenase Total Creatine Kinase CK-MB (CK-2) C-Reactive Protein Total Protein Albumin Troponin T HDL Cholesterol Arterial Blood Glucose Urine WBC (Auto) Urine Creatinine Urine Total Protein Phenytoin Coronavirus (PCR) Crossmatch 08/03/20 08/04/20 08/04/20 23:25 01:41 05:34 WBC RBC 2.20 L Hgb 6.5 L Hct 19.5 L* MCHC RDW 18.5 H Lymph % (Auto) 9.2 L [place] % (Auto) 9.8 H Eos % (Auto) Lymph # [place] # Lymph # (Auto) 0.8 L [place] # (Auto) Eos # (Auto) Seg Neutrophils % 77.7 H Seg Neuts % (Manual) Lymphocytes % (Manual) Seg Neutrophils # Seg Neutrophils # Man Lymphocytes # (Manual) Monocytes % (Manual) Eosinophils % (Manual) Monocytes # (Manual) Eosinophils # (Manual) D-Dimer Heparin Anti-Xa Level ABG pH POC ABG pCO2 POC ABG pO2 ABG pO2 ABG HCO3 ABG O2 Saturation ABG Base Excess ABG Hemoglobin ABG Oxyhemoglobin VBG pH ABG Sodium ABG Potassium ABG Glucose Oxyhemoglobin Sodium Potassium Chloride Carbon Dioxide BUN Creatinine Glucose POC Glucose 122 H 112 H Lactic Acid Calcium Ferritin AST Alkaline Phosphatase Magnesium Lactate Dehydrogenase Total Creatine Kinase CK-MB (CK-2) C-Reactive Protein Total Protein Albumin Troponin T HDL Cholesterol Arterial Blood Glucose Urine WBC (Auto) Urine Creatinine Urine Total Protein Phenytoin Coronavirus (PCR) Crossmatch 08/04/20 08/04/20 08/05/20 12:19 17:42 00:25 WBC RBC Hgb Hct MCHC RDW Lymph % (Auto) [place] % (Auto) Eos % (Auto) Lymph # [place] # Lymph # (Auto) [place] # (Auto) Eos # (Auto) Seg Neutrophils % Seg Neuts % (Manual) Lymphocytes % (Manual) Seg Neutrophils # Seg Neutrophils # Man Lymphocytes # (Manual) Monocytes % (Manual) Eosinophils % (Manual) Monocytes # (Manual) Eosinophils # (Manual) D-Dimer Heparin Anti-Xa Level ABG pH POC ABG pCO2 POC ABG pO2 ABG pO2 ABG HCO3 ABG O2 Saturation ABG Base Excess ABG Hemoglobin ABG Oxyhemoglobin VBG pH ABG Sodium ABG Potassium ABG Glucose Oxyhemoglobin Sodium Potassium Chloride Carbon Dioxide BUN Creatinine Glucose POC Glucose 108 H 113 H 119 H Lactic Acid Calcium Ferritin AST Alkaline Phosphatase Magnesium Lactate Dehydrogenase Total Creatine Kinase CK-MB (CK-2) C-Reactive Protein Total Protein Albumin Troponin T HDL Cholesterol Arterial Blood Glucose Urine WBC (Auto) Urine Creatinine Urine Total Protein Phenytoin Coronavirus (PCR) Crossmatch 08/05/20 08/05/20 08/05/20 05:24 05:35 05:35 WBC RBC 2.13 L Hgb 6.2 L Hct 18.9 L* MCHC RDW 18.7 H Lymph % (Auto) 10.0 L [place] % (Auto) 8.5 H Eos % (Auto) Lymph # [place] # Lymph # (Auto) 0.8 L [place] # (Auto) Eos # (Auto) Seg Neutrophils % 78.1 H Seg Neuts % (Manual) Lymphocytes % (Manual) Seg Neutrophils # Seg Neutrophils # Man Lymphocytes # (Manual) Monocytes % (Manual) Eosinophils % (Manual) Monocytes # (Manual) Eosinophils # (Manual) D-Dimer Heparin Anti-Xa Level ABG pH POC ABG pCO2 POC ABG pO2 ABG pO2 ABG HCO3 ABG O2 Saturation ABG Base Excess ABG Hemoglobin ABG Oxyhemoglobin VBG pH ABG Sodium ABG Potassium ABG Glucose Oxyhemoglobin Sodium 135 L Potassium Chloride 96.3 L Carbon Dioxide BUN 89 H Creatinine 2.8 H Glucose 116 H POC Glucose 138 H Lactic Acid Calcium 7.5 L Ferritin AST 53 H Alkaline Phosphatase 501 H Magnesium Lactate Dehydrogenase Total Creatine Kinase CK-MB (CK-2) C-Reactive Protein Total Protein 6.1 L Albumin 2.2 L Troponin T HDL Cholesterol Arterial Blood Glucose Urine WBC (Auto) Urine Creatinine Urine Total Protein Phenytoin Coronavirus (PCR) Crossmatch 08/05/20 08/05/20 08/05/20 09:15 12:17 18:00 WBC RBC Hgb Hct MCHC RDW Lymph % (Auto) [place] % (Auto) Eos % (Auto) Lymph # [place] # Lymph # (Auto) [place] # (Auto) Eos # (Auto) Seg Neutrophils % Seg Neuts % (Manual) Lymphocytes % (Manual) Seg Neutrophils # Seg Neutrophils # Man Lymphocytes # (Manual) Monocytes % (Manual) Eosinophils % (Manual) Monocytes # (Manual) Eosinophils # (Manual) D-Dimer Heparin Anti-Xa Level ABG pH POC ABG pCO2 POC ABG pO2 ABG pO2 ABG HCO3 ABG O2 Saturation ABG Base Excess ABG Hemoglobin ABG Oxyhemoglobin VBG pH ABG Sodium ABG Potassium ABG Glucose Oxyhemoglobin Sodium Potassium Chloride Carbon Dioxide BUN Creatinine Glucose POC Glucose 126 H 143 H Lactic Acid Calcium Ferritin AST Alkaline Phosphatase Magnesium Lactate Dehydrogenase Total Creatine Kinase CK-MB (CK-2) C-Reactive Protein Total Protein Albumin Troponin T HDL Cholesterol Arterial Blood Glucose Urine WBC (Auto) Urine Creatinine Urine Total Protein Phenytoin Coronavirus (PCR) Crossmatch See Detail 08/06/20 08/06/20 08/07/20 00:50 04:30 04:40 WBC RBC 2.43 L 2.48 L Hgb 7.2 L 7.4 L Hct 21.7 L 22.1 L MCHC RDW 18.1 H 18.1 H Lymph % (Auto) 9.9 L 11.7 L [place] % (Auto) 10.5 H 8.6 H Eos % (Auto) Lymph # [place] # Lymph # (Auto) 0.7 L 0.9 L [place] # (Auto) Eos # (Auto) Seg Neutrophils % 75.1 H 76.1 H Seg Neuts % (Manual) Lymphocytes % (Manual) Seg Neutrophils # Seg Neutrophils # Man Lymphocytes # (Manual) Monocytes % (Manual) Eosinophils % (Manual) Monocytes # (Manual) Eosinophils # (Manual) D-Dimer Heparin Anti-Xa Level ABG pH POC ABG pCO2 POC ABG pO2 ABG pO2 ABG HCO3 ABG O2 Saturation ABG Base Excess ABG Hemoglobin ABG Oxyhemoglobin VBG pH ABG Sodium ABG Potassium ABG Glucose Oxyhemoglobin Sodium Potassium Chloride Carbon Dioxide BUN Creatinine Glucose POC Glucose 117 H Lactic Acid Calcium Ferritin AST Alkaline Phosphatase Magnesium Lactate Dehydrogenase Total Creatine Kinase CK-MB (CK-2) C-Reactive Protein Total Protein Albumin Troponin T HDL Cholesterol Arterial Blood Glucose Urine WBC (Auto) Urine Creatinine Urine Total Protein Phenytoin Coronavirus (PCR) Crossmatch 08/07/20 08/07/20 08/08/20 05:44 06:00 00:03 WBC RBC Hgb Hct MCHC RDW Lymph % (Auto) [place] % (Auto) Eos % (Auto) Lymph # [place] # Lymph # (Auto) [place] # (Auto) Eos # (Auto) Seg Neutrophils % Seg Neuts % (Manual) Lymphocytes % (Manual) Seg Neutrophils # Seg Neutrophils # Man Lymphocytes # (Manual) Monocytes % (Manual) Eosinophils % (Manual) Monocytes # (Manual) Eosinophils # (Manual) D-Dimer Heparin Anti-Xa Level ABG pH POC ABG pCO2 POC ABG pO2 ABG pO2 ABG HCO3 ABG O2 Saturation ABG Base Excess ABG Hemoglobin ABG Oxyhemoglobin VBG pH ABG Sodium ABG Potassium ABG Glucose Oxyhemoglobin Sodium 132 L Potassium 3.3 L Chloride 92.8 L Carbon Dioxide BUN 64 H Creatinine 2.4 H Glucose POC Glucose 58 L 125 H Lactic Acid Calcium 7.0 L Ferritin AST Alkaline Phosphatase Magnesium Lactate Dehydrogenase Total Creatine Kinase CK-MB (CK-2) C-Reactive Protein Total Protein Albumin Troponin T HDL Cholesterol Arterial Blood Glucose Urine WBC (Auto) Urine Creatinine Urine Total Protein Phenytoin Coronavirus (PCR) Crossmatch 08/08/20 08/08/20 08/08/20 12:58 15:00 15:00 WBC RBC 2.36 L Hgb 7.1 L Hct 21.4 L MCHC RDW 18.3 H Lymph % (Auto) [place] % (Auto) Eos % (Auto) Lymph # [place] # Lymph # (Auto) [place] # (Auto) Eos # (Auto) Seg Neutrophils % Seg Neuts % (Manual) Lymphocytes % (Manual) Seg Neutrophils # Seg Neutrophils # Man Lymphocytes # (Manual) Monocytes % (Manual) Eosinophils % (Manual) Monocytes # (Manual) Eosinophils # (Manual) D-Dimer Heparin Anti-Xa Level ABG pH POC ABG pCO2 POC ABG pO2 ABG pO2 ABG HCO3 ABG O2 Saturation ABG Base Excess ABG Hemoglobin ABG Oxyhemoglobin VBG pH ABG Sodium ABG Potassium ABG Glucose Oxyhemoglobin Sodium Potassium Chloride Carbon Dioxide BUN Creatinine Glucose POC Glucose 134 H Lactic Acid Calcium Ferritin AST Alkaline Phosphatase Magnesium Lactate Dehydrogenase Total Creatine Kinase CK-MB (CK-2) C-Reactive Protein Total Protein Albumin Troponin T HDL Cholesterol Arterial Blood Glucose Urine WBC (Auto) Urine Creatinine Urine Total Protein Phenytoin 4.7 L Coronavirus (PCR) Crossmatch 08/08/20 08/08/20 08/09/20 15:00 17:39 00:00 WBC RBC Hgb Hct MCHC RDW Lymph % (Auto) [place] % (Auto) Eos % (Auto) Lymph # [place] # Lymph # (Auto) [place] # (Auto) Eos # (Auto) Seg Neutrophils % Seg Neuts % (Manual) Lymphocytes % (Manual) Seg Neutrophils # Seg Neutrophils # Man Lymphocytes # (Manual) Monocytes % (Manual) Eosinophils % (Manual) Monocytes # (Manual) Eosinophils # (Manual) D-Dimer Heparin Anti-Xa Level ABG pH POC ABG pCO2 POC ABG pO2 ABG pO2 ABG HCO3 ABG O2 Saturation ABG Base Excess ABG Hemoglobin ABG Oxyhemoglobin VBG pH ABG Sodium ABG Potassium ABG Glucose Oxyhemoglobin Sodium 130 L Potassium 3.1 L Chloride 91.5 L Carbon Dioxide BUN 52 H Creatinine 2.3 H Glucose 135 H POC Glucose 131 H 129 H Lactic Acid Calcium 7.3 L Ferritin AST Alkaline Phosphatase Magnesium Lactate Dehydrogenase Total Creatine Kinase CK-MB (CK-2) C-Reactive Protein Total Protein Albumin Troponin T HDL Cholesterol Arterial Blood Glucose Urine WBC (Auto) Urine Creatinine Urine Total Protein Phenytoin Coronavirus (PCR) Crossmatch 08/09/20 08/09/20 08/11/20 05:05 07:49 03:55 WBC RBC 2.22 L Hgb 6.9 L Hct 20.1 L MCHC RDW 18.3 H Lymph % (Auto) 11.2 L [place] % (Auto) 8.8 H Eos % (Auto) Lymph # [place] # Lymph # (Auto) 0.8 L [place] # (Auto) Eos # (Auto) Seg Neutrophils % 76.3 H Seg Neuts % (Manual) Lymphocytes % (Manual) Seg Neutrophils # Seg Neutrophils # Man Lymphocytes # (Manual) Monocytes % (Manual) Eosinophils % (Manual) Monocytes # (Manual) Eosinophils # (Manual) D-Dimer Heparin Anti-Xa Level ABG pH POC ABG pCO2 POC ABG pO2 ABG pO2 ABG HCO3 ABG O2 Saturation ABG Base Excess ABG Hemoglobin ABG Oxyhemoglobin VBG pH ABG Sodium ABG Potassium ABG Glucose Oxyhemoglobin Sodium 130 L Potassium Chloride 90.1 L Carbon Dioxide BUN 56 H Creatinine 2.4 H Glucose 104 H POC Glucose 111 H Lactic Acid Calcium 7.4 L Ferritin AST Alkaline Phosphatase Magnesium Lactate Dehydrogenase Total Creatine Kinase CK-MB (CK-2) C-Reactive Protein Total Protein Albumin Troponin T HDL Cholesterol Arterial Blood Glucose Urine WBC (Auto) Urine Creatinine Urine Total Protein Phenytoin Coronavirus (PCR) Crossmatch 08/11/20 08/11/20 08/11/20 03:55 05:39 23:46 WBC RBC Hgb Hct MCHC RDW Lymph % (Auto) [place] % (Auto) Eos % (Auto) Lymph # [place] # Lymph # (Auto) [place] # (Auto) Eos # (Auto) Seg Neutrophils % Seg Neuts % (Manual) Lymphocytes % (Manual) Seg Neutrophils # Seg Neutrophils # Man Lymphocytes # (Manual) Monocytes % (Manual) Eosinophils % (Manual) Monocytes # (Manual) Eosinophils # (Manual) D-Dimer Heparin Anti-Xa Level ABG pH POC ABG pCO2 POC ABG pO2 ABG pO2 ABG HCO3 ABG O2 Saturation ABG Base Excess ABG Hemoglobin ABG Oxyhemoglobin VBG pH ABG Sodium ABG Potassium ABG Glucose Oxyhemoglobin Sodium 135 L Potassium Chloride 94.5 L Carbon Dioxide BUN 48 H Creatinine 2.2 H Glucose 53 L POC Glucose < 40 L 131 H Lactic Acid Calcium 7.5 L Ferritin AST Alkaline Phosphatase Magnesium Lactate Dehydrogenase Total Creatine Kinase CK-MB (CK-2) C-Reactive Protein Total Protein Albumin Troponin T HDL Cholesterol Arterial Blood Glucose Urine WBC (Auto) Urine Creatinine Urine Total Protein Phenytoin Coronavirus (PCR) Crossmatch 08/12/20 08/12/20 08/12/20 05:39 12:15 17:21 WBC RBC Hgb Hct MCHC RDW Lymph % (Auto) [place] % (Auto) Eos % (Auto) Lymph # [place] # Lymph # (Auto) [place] # (Auto) Eos # (Auto) Seg Neutrophils % Seg Neuts % (Manual) Lymphocytes % (Manual) Seg Neutrophils # Seg Neutrophils # Man Lymphocytes # (Manual) Monocytes % (Manual) Eosinophils % (Manual) Monocytes # (Manual) Eosinophils # (Manual) D-Dimer Heparin Anti-Xa Level ABG pH POC ABG pCO2 POC ABG pO2 ABG pO2 ABG HCO3 ABG O2 Saturation ABG Base Excess ABG Hemoglobin ABG Oxyhemoglobin VBG pH ABG Sodium ABG Potassium ABG Glucose Oxyhemoglobin Sodium Potassium Chloride Carbon Dioxide BUN Creatinine Glucose POC Glucose 120 H 129 H 106 H Lactic Acid Calcium Ferritin AST Alkaline Phosphatase Magnesium Lactate Dehydrogenase Total Creatine Kinase CK-MB (CK-2) C-Reactive Protein Total Protein Albumin Troponin T HDL Cholesterol Arterial Blood Glucose Urine WBC (Auto) Urine Creatinine Urine Total Protein Phenytoin Coronavirus (PCR) Crossmatch 08/13/20 08/13/20 08/13/20 00:05 06:00 12:01 WBC RBC Hgb Hct MCHC RDW Lymph % (Auto) [place] % (Auto) Eos % (Auto) Lymph # [place] # Lymph # (Auto) [place] # (Auto) Eos # (Auto) Seg Neutrophils % Seg Neuts % (Manual) Lymphocytes % (Manual) Seg Neutrophils # Seg Neutrophils # Man Lymphocytes # (Manual) Monocytes % (Manual) Eosinophils % (Manual) Monocytes # (Manual) Eosinophils # (Manual) D-Dimer Heparin Anti-Xa Level ABG pH POC ABG pCO2 POC ABG pO2 ABG pO2 ABG HCO3 ABG O2 Saturation ABG Base Excess ABG Hemoglobin ABG Oxyhemoglobin VBG pH ABG Sodium ABG Potassium ABG Glucose Oxyhemoglobin Sodium Potassium Chloride Carbon Dioxide BUN Creatinine Glucose POC Glucose 120 H 114 H 112 H Lactic Acid Calcium Ferritin AST Alkaline Phosphatase Magnesium Lactate Dehydrogenase Total Creatine Kinase CK-MB (CK-2) C-Reactive Protein Total Protein Albumin Troponin T HDL Cholesterol Arterial Blood Glucose Urine WBC (Auto) Urine Creatinine Urine Total Protein Phenytoin Coronavirus (PCR) Crossmatch 1108/13/20 08/14/20 17:24 23:51 04:50 WBC RBC Hgb Hct MCHC RDW Lymph % (Auto) [place] % (Auto) Eos % (Auto) Lymph # [place] # Lymph # (Auto) [place] # (Auto) Eos # (Auto) Seg Neutrophils % Seg Neuts % (Manual) Lymphocytes % (Manual) Seg Neutrophils # Seg Neutrophils # Man Lymphocytes # (Manual) Monocytes % (Manual) Eosinophils % (Manual) Monocytes # (Manual) Eosinophils # (Manual) D-Dimer Heparin Anti-Xa Level ABG pH POC ABG pCO2 POC ABG pO2 ABG pO2 ABG HCO3 ABG O2 Saturation ABG Base Excess ABG Hemoglobin ABG Oxyhemoglobin VBG pH ABG Sodium ABG Potassium ABG Glucose Oxyhemoglobin Sodium 132 L Potassium Chloride 93.2 L Carbon Dioxide BUN 58 H Creatinine 2.6 H Glucose 106 H POC Glucose 116 H 138 H Lactic Acid Calcium 8.0 L Ferritin AST Alkaline Phosphatase Magnesium Lactate Dehydrogenase Total Creatine Kinase CK-MB (CK-2) C-Reactive Protein Total Protein Albumin Troponin T HDL Cholesterol Arterial Blood Glucose Urine WBC (Auto) Urine Creatinine Urine Total Protein Phenytoin Coronavirus (PCR) Crossmatch 08/14/20 05:52 WBC RBC Hgb Hct MCHC RDW Lymph % (Auto) [place] % (Auto) Eos % (Auto) Lymph # [place] # Lymph # (Auto) [place] # (Auto) Eos # (Auto) Seg Neutrophils % Seg Neuts % (Manual) Lymphocytes % (Manual) Seg Neutrophils # Seg Neutrophils # Man Lymphocytes # (Manual) Monocytes % (Manual) Eosinophils % (Manual) Monocytes # (Manual) Eosinophils # (Manual) D-Dimer Heparin Anti-Xa Level ABG pH POC ABG pCO2 POC ABG pO2 ABG pO2 ABG HCO3 ABG O2 Saturation ABG Base Excess ABG Hemoglobin ABG Oxyhemoglobin VBG pH ABG Sodium ABG Potassium ABG Glucose Oxyhemoglobin Sodium Potassium Chloride Carbon Dioxide BUN Creatinine Glucose POC Glucose 108 H Lactic Acid Calcium Ferritin AST Alkaline Phosphatase Magnesium Lactate Dehydrogenase Total Creatine Kinase CK-MB (CK-2) C-Reactive Protein Total Protein Albumin Troponin T HDL Cholesterol Arterial Blood Glucose Urine WBC (Auto) Urine Creatinine Urine Total Protein Phenytoin Coronavirus (PCR) Crossmatch Chest x-ray: pending Allied health notes reviewed: nursing
--- NOTE | 2020-08-14 19:05 | Progress Note ---
Assessment and Plan Assessment and plan: 05/28/2020 COVID-19 test positive 06/29/2020 COVID-19 test positive 07/14/2020 COVID-19 test positive 08/09/2020 COVID-19 test negative DNR status Awaiting DC home with hospice[pending family decision] --s/p cardiopulmonary arrest on admission, 06/26 and 07/01, EF 45-50% on 2d echo, medical Mx per cardiology --Bradycardia: Patient is on dopamine and epinephrine for bradycardia beta-hugh discontinued, Heart rate is in the 60s to 70s --Anoxic brain injury, neurology consulted, neuro requested MRI brain, EEG MRI brain could not be done due to body habitus, --Acute hypoxemic respiratory failure; vent dependent intubated on admission, extubated on 06/12/20 then placed on high flow o2 patient developed another respiratory arrest on 06/26 - reintubated Patient not tolerating weaning parameters CC following, Surgery evaluated the patient for trach and PEG COVID-19 test positive x3, trach and PEG pending -- Hypertension; well controlled Continue amlodipine, clonidine and hydralazine and minoxidil, closely monitor blood pressures, PRN labetalol --Seizures seizure precautions; continue Keppra, and Dilantin EEG showed epileptiform discharges per review of neurology note --Rectal bleeding; resolved --Acute blood loss anemia; total 4 units PRBC transfused monitor H&H, GI following, no plans of endoscopy --Severe sepsis; completed antibiotics per ID persistently positive for COVID-19 and treated for Klebsiella pneumoniae --COVID-19 b/l PNA Completed remdesivir on 06/02 Completed dexamethasone - Last dose 06/07 COVID 19 test positive x 3 during this admission --Superficial left cephalic vein DVT/elevated D-dimers[COVID 19] Patient initially started on heparin drip from 05/29/20 D-dimers improved [id number] treated with Eliquis 5 mg twice a day for 1 week[per ID] stop date 06/26/2020 -- Acute toxic metabolic encephalopathy, POA likely from sepsis and s/p cardiac arrest with possible anoxic injury -- Acute renal failure: Management per nephrology Initiated HD. HD as needed --Klebsiella pneumonia: s/p 5 days of cefepime on 07/04/2020 --Acute on chronic systolic heart failure Cardiology following. Ef 45% --Transaminitis. Resolved etiology likely from COVID-19 --Hyperkalemia; improved --Hyponatremia Monitor electrolytes, now on HD --Shock; resolved -- DVT prophylaxis Eliquis, SCD to bilateral lower extremities while in bed -- Advance care planning Patient is critically ill with multiple medical problems Poor prognosis. 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 The aggregate critical care time was [34] minutes. This time is in addition to time spent performing reported procedures but includes the following: [x] Data Review and interpretation [x] Patient assessment and monitoring of vital signs [x] Documentation [x] Medication orders and management 08/13/20; patient is DNR status now, family considering home with home hospice, initially Home hospice evaluated the patient However family did not make the decision, awaiting DC home with home hospice pending family's decision Brief History: 64 YO Female with a medical history of HTN, Diastolic CHF, Pulmonary HTN, DM, Obesity Hypoventilation Syndrome presents to ED for evaluation of shortness of breath. As per staff, the EMS was notified for difficulty breathing. Upon arrival to the patient's home the patient was found to be in distress and was subsequently transported to [facility] for further evaluation and care. In route to [facility] the patient developed cardiac arrest and was treated in accordance with ACLS protocol with return of ROSC. Patient was seen and evaluated in the emergency department and was intubated and placed on ventilatory support. Patient admitted to ICU. Critical care team consulted in ED. She was found to have COVID-19 infection and was started on steroids and remdesivir. ID was consulted. Cardiology was consulted for her systolic heart failure and cardiac arrest. Patient completed treatment for COVID-19, then develop superimposed bacterial pneumonia with Klebsiella. She is now extubated, 06/12/2020 but remains confused and requiring high flow O2 and intermittent BiPAP. Patient had another cardiac arrest reintubated 06/26/2020, currently in ICU vent dependent, unable to do trach and PEG due to persistent COVID-19 positive state, as well as anoxic brain injury, unable to get MRI , neurology following. History Interval history: Late entry; I have seen and examined the patient this morning in ICU at bedside Isolation precautions and PPE protocols strictly followed today Patient remains intubated on ventilatory support unresponsive Morbidly obese DNR status, awaiting discharge home with home hospice Case management is processing Vital signs noted Hospitalist Physical - Constitutional Vitals: Temp Pulse Resp BP Pulse Ox 97.9 F 85 34 H 144/73 96 08/14/20 16:00 08/14/20 18:00 08/14/20 18:00 08/14/20 18:00 08/14/20 18:00 General appearance: Present: no acute distress, well-nourished, obese (Morbidly obese), other (Intubated on ventilatory support) - EENT Eyes: Present: PERRL, EOM intact - Neck Neck: Present: supple, normal ROM - Respiratory Respiratory effort: normal Respiratory: bilateral: diminished, negative: rales, rhonchi, wheezing - Cardiovascular Rhythm: regular Heart Sounds: Present: S1 & S2 - Extremities Extremities: no ischemia, No edema - Abdominal General gastrointestinal: soft, non-tender, non-distended, normal bowel sounds - Integumentary Integumentary: Present: clear, warm - Psychiatric Psychiatric: other (Intubated on vent) - Neurologic Neurologic: other (Unresponsive on vent) HEART Score - HEART Score Troponin: Troponin T 0.067 ng/mL (0.00-0.029) H 07/01/20 06:01 Results - Labs CBC & Chem 7: 08/11/20 03:55 08/14/20 04:50 Labs: Laboratory Last Values WBC 7.2 K/mm3 (4.5-11.0) 08/11/20 03:55 RBC 2.22 M/mm3 (3.65-5.03) L 08/11/20 03:55 Hgb 6.9 gm/dl (10.1-14.3) L 08/11/20 03:55 Hct 20.1 % (30.3-42.9) L 08/11/20 03:55 MCV 90 fl (79-97) 08/11/20 03:55 MCH 31 pg (28-32) 08/11/20 03:55 MCHC 34 % (30-34) 08/11/20 03:55 RDW 18.3 % (13.2-15.2) H 08/11/20 03:55 Plt Count 300 K/mm3 (140-440) 08/11/20 03:55 Lymph % (Auto) 11.2 % (13.4-35.0) L 08/11/20 03:55 [place] % (Auto) 8.8 % (0.0-7.3) H 08/11/20 03:55 Eos % (Auto) 3.0 % (0.0-4.3) 08/11/20 03:55 Baso % (Auto) 0.7 % (0.0-1.8) 08/11/20 03:55 Lymph # (Auto) 0.8 K/mm3 (1.2-5.4) L 08/11/20 03:55 [place] # (Auto) 0.6 K/mm3 (0.0-0.8) 08/11/20 03:55 Eos # (Auto) 0.2 K/mm3 (0.0-0.4) 08/11/20 03:55 Baso # (Auto) 0.1 K/mm3 (0.0-0.1) 08/11/20 03:55 Add Manual Diff Complete 07/29/20 13:01 Total Counted 100 07/29/20 13:01 Seg Neutrophils % 76.3 % (40.0-70.0) H 08/11/20 03:55 Seg Neuts % (Manual) 86.0 % (40.0-70.0) H 07/29/20 13:01 Band Neutrophils % 0 % 07/29/20 13:01 Lymphocytes % (Manual) 6.0 % (13.4-35.0) L 07/29/20 13:01 Reactive Lymphs % (Man) 0 % 07/29/20 13:01 Monocytes % (Manual) 8.0 % (0.0-7.3) H 07/29/20 13:01 Eosinophils % (Manual) 0 % (0.0-4.3) 07/29/20 13:01 Basophils % (Manual) 0 % (0.0-1.8) 07/29/20 13:01 Metamyelocytes % 0 % 07/29/20 13:01 Myelocytes % 0 % 07/29/20 13:01 Promyelocytes % 0 % 07/29/20 13:01 Blast Cells % 0 % 07/29/20 13:01 Nucleated RBC % Not Reportable 07/29/20 13:01 Seg Neutrophils # 5.5 K/mm3 (1.8-7.7) 08/11/20 03:55 Seg Neutrophils # Man 8.9 K/mm3 (1.8-7.7) H 07/29/20 13:01 Band Neutrophils # 0.0 K/mm3 07/29/20 13:01 Lymphocytes # (Manual) 0.6 K/mm3 (1.2-5.4) L 07/29/20 13:01 Abs React Lymphs (Man) 0.0 K/mm3 07/29/20 13:01 Monocytes # (Manual) 0.8 K/mm3 (0.0-0.8) 07/29/20 13:01 Eosinophils # (Manual) 0.0 K/mm3 (0.0-0.4) 07/29/20 13:01 Basophils # (Manual) 0.0 K/mm3 (0.0-0.1) 07/29/20 13:01 Metamyelocytes # 0.0 K/mm3 07/29/20 13:01 Myelocytes # 0.0 K/mm3 07/29/20 13:01 Promyelocytes # 0.0 K/mm3 07/29/20 13:01 Blast Cells # 0.0 K/mm3 07/29/20 13:01 WBC Morphology Not Reportable 07/29/20 13:01 Hypersegmented Neuts Not Reportable 07/29/20 13:01 Hyposegmented Neuts Not Reportable 07/29/20 13:01 Hypogranular Neuts Not Reportable 07/29/20 13:01 Smudge Cells Not Reportable 07/29/20 13:01 Toxic Granulation Not Reportable 07/29/20 13:01 Toxic Vacuolation Not Reportable 07/29/20 13:01 Dohle Bodies Not Reportable 07/29/20 13:01 Pelger-Huet Anomaly Not Reportable 07/29/20 13:01 Sanjuanita Rods Not Reportable 07/29/20 13:01 Platelet Estimate Consistent w auto 07/29/20 13:01 Clumped Platelets Not Reportable 07/29/20 13:01 Plt Clumps, EDTA Not Reportable 07/29/20 13:01 Large Platelets Not Reportable 07/29/20 13:01 Giant Platelets Not Reportable 07/29/20 13:01 Platelet Satelliting Not Reportable 07/29/20 13:01 Plt Morphology Comment Not Reportable 07/29/20 13:01 RBC Morphology Normal 07/29/20 13:01 Dimorphic RBCs Not Reportable 07/29/20 13:01 Polychromasia Not Reportable 07/29/20 13:01 Hypochromasia Not Reportable 07/29/20 13:01 Poikilocytosis Not Reportable 07/29/20 13:01 Anisocytosis Not Reportable 07/29/20 13:01 Microcytosis Not Reportable 07/29/20 13:01 Macrocytosis Not Reportable 07/29/20 13:01 Spherocytes Not Reportable 07/29/20 13:01 Pappenheimer Bodies Not Reportable 07/29/20 13:01 Sickle Cells Not Reportable 07/29/20 13:01 Target Cells Not Reportable 07/29/20 13:01 Tear Drop Cells Not Reportable 07/29/20 13:01 Ovalocytes Not Reportable 07/29/20 13:01 Helmet Cells Not Reportable 07/29/20 13:01 [place] Bodies Not Reportable 07/29/20 13:01 [place] Rings Not Reportable 07/29/20 13:01 Julia Cells Not Reportable 07/29/20 13:01 Bite Cells Not Reportable 07/29/20 13:01 Crenated Cell Not Reportable 07/29/20 13:01 Elliptocytes Not Reportable 07/29/20 13:01 Acanthocytes (Spur) Not Reportable 07/29/20 13:01 Rouleaux Not Reportable 07/29/20 13:01 Hemoglobin C Crystals Not Reportable 07/29/20 13:01 Schistocytes Not Reportable 07/29/20 13:01 Malaria parasites Not Reportable 07/29/20 13:01 Kev Bodies Not Reportable 07/29/20 13:01 Hem Pathologist Commnt No 07/29/20 13:01 PT 14.2 Sec. (12.2-14.9) 05/29/20 15:10 INR 1.08 (0.87-1.13) 05/29/20 15:10 APTT 27.2 Sec. (24.2-36.6) 05/29/20 15:10 D-Dimer 2310.15 ng/mlDDU (0-234) H 06/29/20 14:45 Heparin Anti-Xa Level 0.34 U.I./ml (0.3-0.7) 06/19/20 10:46 ABG pH 7.344 pH Units (7.350-7.450) L 08/02/20 11:25 POC ABG pCO2 44.1 mmHg (32.0-48.0) 07/18/20 04:24 ABG pCO2 39.0 mm Hg 08/02/20 11:25 ABG Oxyhemoglobin 92.6 (94-98) L 06/23/20 12:34 POC ABG pO2 86.8 mmHg (83-108) 07/18/20 04:24 ABG pO2 101.1 mm Hg (80.0-90.0) H 08/02/20 11:25 POC ABG HCO3 25.6 07/18/20 04:24 ABG HCO3 20.8 mmol/L (20.0-26.0) 08/02/20 11:25 ABG O2 Saturation 97.5 % (95.0-99.0) 08/02/20 11:25 ABG O2 Content 9.1 (0.0-44) 08/02/20 11:25 POC ABG Base Excess 0.4 07/18/20 04:24 ABG Base Excess -4.5 mmol/L (-2.0-3.0) L 08/02/20 11:25 ABG Hemoglobin 6.6 gm/dl (12.0-16.0) L 08/02/20 11:25 ABG Carboxyhemoglobin 1.8 % (0.0-5.0) 08/02/20 11:25 ABG Methemoglobin 0.2 % (0.0-1.5) 08/02/20 11:25 VBG pH 7.152 (7.320-7.420) L* 05/28/20 13:47 ABG Sodium 131.6 mmol/L (136.0-145.0) L 07/18/20 04:24 ABG Potassium 4.9 mmol/L (3.40-4.50) H 07/18/20 04:24 ABG Chloride 104.0 mmol/L (98-107) 07/18/20 04:24 ABG Glucose 131 mg/dL (65-95) H 07/18/20 04:24 Carboxyhemoglobin 0.5 (0.5-1.5) 06/23/20 12:34 Oxyhemoglobin 95.5 % (95.0-99.0) 08/02/20 11:25 FiO2 30 % 08/02/20 11:25 Sodium 132 mmol/L (137-145) L 08/14/20 04:50 Potassium 4.2 mmol/L (3.6-5.0) 08/14/20 04:50 Chloride 93.2 mmol/L (98-107) L 08/14/20 04:50 Carbon Dioxide 29 mmol/L (22-30) 08/14/20 04:50 Anion Gap 14 mmol/L 08/14/20 04:50 BUN 58 mg/dL (7-17) H 08/14/20 04:50 Creatinine 2.6 mg/dL (0.6-1.2) H 08/14/20 04:50 Estimated GFR 19 ml/min 08/14/20 04:50 BUN/Creatinine Ratio 22 % 08/14/20 04:50 Glucose 106 mg/dL (65-100) H 08/14/20 04:50 POC Glucose 102 mg/dL (70-105) 08/14/20 12:31 Lactic Acid 0.40 mmol/L (0.7-2.0) L 08/03/20 04:38 Calcium 8.0 mg/dL (8.4-10.2) L 08/14/20 04:50 Ferritin 223.6 ng/mL (10.0-200.0) H 06/29/20 14:45 Magnesium 2.70 mg/dL (1.7-2.3) H 07/28/20 04:30 Lactate Dehydrogenase 367 units/L (91-180) H 06/29/20 14:45 Total Bilirubin 0.20 mg/dL (0.1-1.2) 08/05/20 05:35 AST 53 units/L (5-40) H 08/05/20 05:35 ALT 44 units/L (7-56) 08/05/20 05:35 Alkaline Phosphatase 501 units/L (35-129) H 08/05/20 05:35 C-Reactive Protein 3.60 mg/dL (0.00-1.30) H 06/29/20 14:45 Total Creatine Kinase 300 units/L (30-135) H 07/01/20 06:01 CK-MB (CK-2) 2.0 ng/mL (0.0-4.0) 07/01/20 06:01 CK-MB (CK-2) Rel Index 0.6 (0-4) 07/01/20 06:01 Troponin T 0.067 ng/mL (0.00-0.029) H 07/01/20 06:01 Total Protein 6.1 g/dL (6.3-8.2) L 08/05/20 05:35 Albumin 2.2 g/dL (3.9-5) L 08/05/20 05:35 Albumin/Globulin Ratio 0.6 % 08/05/20 05:35 Triglycerides 142 mg/dL (2-149) 07/01/20 06:01 Cholesterol 137 mg/dL (50-199) 07/01/20 06:01 LDL Cholesterol Direct 62 mg/dL (50-130) 07/01/20 06:01 HDL Cholesterol 61 mg/dL (40-59) H 07/01/20 06:01 Cholesterol/HDL Ratio 2.24 % 07/01/20 06:01 Procalcitonin 0.18 ng/mL (<0.15) 07/14/20 04:55 Arterial Blood Glucose 131 mg/dL (65-95) H 07/18/20 04:24 Arterial Blood Ionized Calcium 5.1 mg/dL (4.6-5.3) 07/18/20 04:24 Urine Color Yellow (Yellow) 06/06/20 04:00 Urine Turbidity Cloudy (Clear) 06/06/20 04:00 Urine pH 5.0 (5.0-7.0) 06/06/20 04:00 Ur Specific [place] 1.012 (1.003-1.030) 06/06/20 04:00 Urine Protein 100 mg/dl mg/dL (Negative) 06/06/20 04:00 Urine Glucose (UA) 50 mg/dL (Negative) 06/06/20 04:00 Urine Ketones Neg mg/dL (Negative) 06/06/20 04:00 Urine Blood Sm (Negative) 06/06/20 04:00 Urine Nitrite Neg (Negative) 06/06/20 04:00 Urine Bilirubin Neg (Negative) 06/06/20 04:00 Urine Urobilinogen < 2.0 mg/dL (<2.0) 06/06/20 04:00 Ur Leukocyte Esterase Neg (Negative) 06/06/20 04:00 Urine WBC (Auto) 15.0 /HPF (0.0-6.0) H 06/06/20 04:00 Urine RBC (Auto) 23.0 /HPF (0.0-6.0) 06/06/20 04:00 U Epithel Cells (Auto) 8.0 /HPF (0-13.0) 06/06/20 04:00 Urine Bacteria (Auto) 2+ /HPF (Negative) 06/06/20 04:00 Amorphous Crystals 1+ 06/06/20 04:00 Hyaline Casts 16 /LPF 06/06/20 04:00 Urine Mucus 2+ /HPF 06/06/20 04:00 Urine Yeast (Budding) 2+ /HPF 06/03/20 Unknown Urine Creatinine 33.3 mg/dL (0.1-20.0) H 07/06/20 13:20 Urine Sodium 21 mmol/L 07/06/20 13:20 Urine Total Protein 196 mg/dL (5-11.8) H 06/06/20 04:00 Nasal Screen MRSA (PCR) Negative (Negative) 06/29/20 08:30 Phenytoin 4.7 ug/mL (10.0-20.0) L 08/08/20 15:00 Coronavirus (PCR) Negative (Negative) 08/09/20 09:50 Hepatitis A IgM Ab Non-reactive (NonReactive) 07/29/20 13:01 Hep Bs Antigen Non-reactive (Negative) 07/29/20 13:01 Hep B Core IgM Ab Non-reactive (NonReactive) 07/29/20 13:01 Hepatitis C Antibody Non-reactive (NonReactive) 07/29/20 13:01 Blood Type A POSITIVE 08/05/20 09:15 Antibody Screen Negative 08/05/20 09:15 Crossmatch See Detail 08/05/20 09:15 - Diagnostic Impressions Diagnostic Impressions: Echocardiogram Limited Views 05/29/20 13:52 Transthoracic Echocardiogram Indication: Pulm Embolus BP: 169/76 HR: 85 Conclusions *Limited study for RV size post cardiopulmonar arrest. *RV is only slightly dilated, no significant difference from prior echo 05/13/2020. *Global left ventricular systolic function is at the lower limits of normal. *The estimated ejection fraction is 45-50%. *Mild to moderate concentric left ventricular hypertrophy is observed. *The left and right atria are both mild to moderately dilated. Findings Left Ventricle: The left ventricular chamber size is mildly dilated. Mild to moderate concentric left ventricular hypertrophy is observed. Global left ventricular systolic function is at the lower limits of normal. The estimated ejection fraction is 45-50%. Left Atrium: The left atrium is mild to moderately dilated. Right Ventricle: The right ventricle is slightly dilated. Right Atrium: The right atrium is mild to moderately dilated. Aortic Valve: The aortic valve leaflets are moderately thickened. Mitral Valve: There is mitral annular calcification. The mitral valve leaflets are moderately thickened. Tricuspid Valve: The tricuspid valve leaflets are mildly thickened. Pericardium: A trivial pericardial effusion is visualized. NDUM: 05/29/20 1808 Amended Report Transthoracic Echocardiogram Indication: Pulm Embolus BP: 169/76 HR: 85 Conclusions *Limited study for RV size post cardiopulmonary arrest. *RV is only slightly dilated, no significant difference from prior echo 05/13/2020. *Global left ventricular systolic function is at the lower limits of normal. *The estimated ejection fraction is 45-50%. *Mild to moderate concentric left ventricular hypertrophy is observed. *The left and right atria are both mild to moderately dilated. Findings Left Ventricle: The left ventricular chamber size is mildly dilated. Mild to moderate concentric left ventricular hypertrophy is observed. Global left ventricular systolic function is at the lower limits of normal. The estimated ejection fraction is 45-50%. Left Atrium: The left atrium is mild to moderately dilated. Right Ventricle: The right ventricle is slightly dilated. Right Atrium: The right atrium is mild to moderately dilated. Aortic Valve: The aortic valve leaflets are moderately thickened. Mitral Valve: There is mitral annular calcification. The mitral valve leaflets are moderately thickened. Tricuspid Valve: The tricuspid valve leaflets are mildly thickened. Pericardium: A trivial pericardial effusion is visualized. Helm/IV: Voiding Method Indwelling Catheter IV Catheter Type [Right VAS Cath Femoral] IV Catheter Type [Left Forearm INT / Saline Lock ] IV Catheter Type [Left Wrist] Peripheral IV IV Catheter Type [Left Upper Peripheral IV arm] IV Catheter Type [Right CVL Internal Jugular] IV Catheter Type [Right Hand] Peripheral IV IV Catheter Type [Right Wrist] Not found on patient IV Catheter Type [Left Hand] INT / Saline Lock IV Catheter Type [Left INT / Saline Lock Antecubital] IV Catheter Type [Right Peripheral IV Forearm] IV Catheter Type [Left Leg] Intra-osseous Active Medications - Current Medications Current Medications: Generic Name Dose Route Start Last Admin Trade Name Freq PRN Reason Stop Dose Admin Acetaminophen 650 mg 06/09/20 10:57 06/29/20 21:18 Tylenol FEEDTUBE 650 mg Q6H PRN Administration Fever >101 Amlodipine Besylate 10 mg 06/02/20 11:00 08/14/20 09:23 Amlodipine PO 10 mg DAILY NELSON Administration Lipase/Protease/Amylase 1 each 05/29/20 13:39 08/10/20 22:[address] 10,500 Unit FEEDTUBE 1 each PRN PRN Administration For Clogged Feeding Tube Epoetin Javon 10,000 unit 07/29/20 11:29 08/10/20 12:08 Procrit IV 10,000 unit SCOTTY PRN Administration hemodialysis Glycopyrrolate 2 mg 06/09/20 14:00 08/14/20 14:11 Glycopyrrolate PO 2 mg TID NELSON Administration Heparin Sodium (Porcine) 5,000 unit 06/30/20 14:00 08/14/20 14:12 Heparin SUB-Q 5,000 unit Q8HR NELSON Administration Heparin Sodium (Porcine) 5,000 unit 07/29/20 11:29 08/02/20 23:15 Heparin IV 5,000 unit SCOTTY PRN Administration hemodialysis Hydralazine HCl 100 mg 07/14/20 14:00 08/14/20 14:11 Apresoline PO 100 mg TID NELSON Administration Hydrophilic Ointment 1 applic 05/28/20 13:49 Vaseline Lip Therapy TP Q2HR PRN Dry Lips Norepinephrine 4 mg in 250 mls @ 7.5 mls/hr 07/23/20 20:00 08/05/20 05:21 Levophed Drip 4 Mg/Ns 250 Ml IV 0 mcg/min TITR NELSON 0 mls/hr Titration Protocol 2 MCG/MIN Phenytoin 150 mg/ Sodium 103 mls @ 408 mls/hr 08/03/20 09:00 08/14/20 14:11 Chloride IV 408 mls/hr Q8HR NELSON Administration Sodium Chloride 100 mls @ 999 mls/hr 08/04/20 22:27 Nacl 0.9% IV SCOTTY PRN Hypotension Insulin Glargine 10 units 06/08/20 22:00 08/13/20 21:37 Lantus SUB-Q 10 units QHS NELSON Administration Insulin Human Lispro 0 unit 05/29/20 18:00 08/14/20 18:49 Humalog SUB-Q Not Given Q6H [facility] Protocol Labetalol HCl 20 mg 06/03/20 09:00 07/31/20 12:14 Labetalol IV 20 mg Q4H PRN Administration HYPERTENSION Lansoprazole 30 mg 08/08/20 10:00 08/14/20 09:03 Prevacid Solutab FEEDTUBE 30 mg QDAY NELSON Administration Levetiracetam 1,000 mg 08/08/20 22:00 08/14/20 09:04 Keppra PO 1,000 mg BID NELSON Administration Minoxidil 5 mg 07/21/20 10:00 08/14/20 09:23 Loniten PO 5 mg BID NELSON Administration Multi-Ingred Cream/Lotion/Oil/Oint 1 applic 05/28/20 13:49 Artificial Tears Ophth Oint OU Q4HR PRN Dry Eye(s) Ondansetron HCl 4 mg 06/02/20 09:00 06/09/20 16:48 Zofran IV 4 mg Q8H PRN Administration Nausea And Vomiting Senna 17.6 mg 06/03/20 10:00 08/14/20 09:04 Senokot FEEDTUBE 17.6 mg BID NELSON Administration Simple Syrup 15 ml 05/29/20 13:39 Simple Syrup FEEDTUBE PRN PRN Hypoglycemia Simple Syrup 30 ml 05/29/20 13:39 Simple Syrup FEEDTUBE PRN PRN Hypoglycemia Sodium Bicarbonate 325 mg 05/29/20 13:39 07/07/20 10:36 Sodium Bicarbonate FEEDTUBE 325 mg PRN PRN Administration For Clogged Feeding Tube Sodium Chloride 10 ml 05/28/20 22:00 08/14/20 09:24 Sodium Chloride Flush Syringe 10 Ml IV 10 ml BID NELSON Administration Sodium Chloride 10 ml 05/28/20 19:08 08/11/20 12:42 Sodium Chloride Flush Syringe 10 Ml IV 10 ml PRN PRN Administration LINE FLUSH Torsemide 100 mg 08/13/20 06:00 08/14/20 05:54 Demadex PO 100 mg DAILY@0600 NELSON Administration Nutrition/Malnutrition Assess - Dietary Evaluation Nutrition/Malnutrition Findings: Nutrition Notes Start: 05/29/20 11:45 Freq: Status: Active Protocol: Document 08/11/20 12:18 KYLIE (Rec: 08/11/20 12:23 KYLIE [id number]) Co-Sign 08/11/20 12:18 ALFRED Nutrition Notes Initial or Follow up Reassessment Current Diagnosis Acute Kidney Injury,Diabetes, Heart Failure,Respiratory Failure Other Pertinent Diagnosis COVID-19 (+), Pulmonary edema, dysphagia Current Diet Nepro at 40 ml/hr Labs/Tests Na 135 BUN 48 Cr 2.2 BG 53 POC 72 Pertinent Medications Dextrose 75g Lasix Height 5 ft 6 in Weight 123 kg [place] Body Weight (kg) 59.09 BMI 43.7 Weight Status Morbidly Obese Subjective/Other Information F/u TF, fluid, Na. Pt remains fluid overloaded. Hospice care possibility. Percent of energy/protein needs met: 100%/100% (Protein based on minimum 1.2g /kg IBW for dialysis) Burn Absent Trauma Absent GI Symptoms None Current % PO Negligible Minimum of two criteria No Fluid Accumulation Mild (non-severe) #1 Nutrition Diagnosis Inadequate oral intake Diagnosis Progress(for reassessment Continues documentation) Is patient on ventilator? Yes Is Patient Ambulatory and/or Out of Bed No REE-([facility]-confined to bed) 2172.576 Kcal/Kg value to use for calculation 13 Approximate Energy Requirements Using 1599 kcal/Kg Calculation Used for Recommendations Kcal/kg Additional Notes Protein needs up to 148g (up to 2.5g/kg IBW) with minimum of 71g (>1.2g/kg of IBW for dialysis) Fluid needs 1ml/kcal or per MD orders Nutrition Intervention Change Diet Order: Continue Nutrition Support: Nepro at 40 ml/hr Flush 50ml q4h Kcal 1,728 Protein (gm) 78 Fluid (mL) 697 Goal #1 Meet at least 75% of energy and protein needs by TF. Anticipated Discharge Needs: Unable to determine at this time Follow-Up By: 08/18/20 Additional Comments F/u TF and POC
[2020-08-14] MEDS: INSULIN GLARGINE 100 UNITS/ML SUB-Q SCH (21:05)
[2020-08-15] MEDS: HEPARIN 5,000 UNIT/1 ML VIAL SUB-Q SCH ×3 (06:05→21:20)
[2020-08-15] MEDS: TORSEMIDE 100 MG TAB PO SCH (06:06)
[2020-08-15] MEDS: PHENYTOIN IV SCH ×3 (06:06→21:21)
[2020-08-15] MEDS: SODIUM CHLORIDE 0.9% IV SCH ×3 (06:06→21:21)
[2020-08-15] MEDS: INSULIN LISPRO 100 UNIT/ML VIAL 3 mL SUB-Q SCH ×2 (08:05→12:35)
[2020-08-15] MEDS: hydrALAZINE 100 MG TAB PO SCH ×3 (08:40→21:20)
[2020-08-15] MEDS: GLYCOPYRROLATE 2 MG TAB PO SCH ×3 (08:40→21:20)
[2020-08-15] MEDS: levETIRAcetam 500 MG/5 ML ORAL LIQD PO SCH ×2 (09:07→21:20)
[2020-08-15] MEDS: LANSOPRAZOLE 30 MG SOLUTAB FEEDTUBE SCH (09:07)
[2020-08-15] MEDS: amLODIPine 10 MG TAB PO SCH (09:08)
[2020-08-15] MEDS: MINOXIDIL 2.5 MG TAB PO SCH ×2 (09:08→21:20)
[2020-08-15] MEDS: SENNOSIDES ORAL LIQD 8.8 MG/5 ML ORAL LIQD FEEDTUBE SCH ×2 (09:09→21:20)
--- NOTE | 2020-08-15 11:15 | Progress Note ---
Assessment and Plan - Patient Problems (1) Acute kidney injury (AVANI) with acute tubular necrosis (ATN) Current Visit: Yes Status: Acute Plan to address problem: With prolonged hospitalization course and worsening renal injury along with volume overload, patient was started on HD. She has not had HD since 08/07. Overall her prognosis remains guarded/poor. Per CM notes, progressing towards hospice. No acute indications for renal replacement therapy at this time. (2) Hyperkalemia Current Visit: Yes Status: Acute Plan to address problem: in the setting of acute kidney injury. Medical management of hyperkalemia. Levels stable at this time. (3) Acute hypoxemic respiratory failure Current Visit: Yes Status: Acute Plan to address problem: management per pulmonary team. Remains intubated at this time. (4) Pneumonia due to COVID-19 virus Current Visit: Yes Status: Acute Plan to address problem: management per ID recommendations. Completed course of remdesivir and steroids. Remains on positive on repeat testing and remains in isolation protocol. Subjective Date of service: 08/15/20 Principal diagnosis: Ac hypoxemic resp failure; COVID-19; pneumonia; CHF; Pulm HTN; OHS; DM II Interval history: No acute changes. Per CM notes, progressing towards hospice. Objective - Exam Narrative Exam: patient was not directly examined secondary to preservation of PPE - Vital Signs Vital signs: Vital Signs - 12hr 08/14/20 08/14/20 08/14/20 23:30 23:45 23:48 Temperature 98.3 F Pulse Rate 79 80 Pulse Rate [ From Monitor] Respiratory 6 L Rate Blood Pressure 148/70 146/70 O2 Sat by Pulse 98 98 Oximetry 08/15/20 08/15/20 08/15/20 00:00 01:00 02:00 Temperature Pulse Rate 80 80 80 Pulse Rate [ From Monitor] Respiratory 14 8 L 8 L Rate Blood Pressure 148/70 140/54 138/53 O2 Sat by Pulse 98 97 97 Oximetry 08/15/20 08/15/20 08/15/20 03:00 04:00 04:04 Temperature 98.3 F Pulse Rate 78 78 89 Pulse Rate [ From Monitor] Respiratory 7 L 9 L Rate Blood Pressure 138/53 137/56 137/56 O2 Sat by Pulse 97 97 98 Oximetry 08/15/20 08/15/20 08/15/20 05:00 06:00 07:00 Temperature Pulse Rate 76 80 76 Pulse Rate [ From Monitor] Respiratory 12 16 17 Rate Blood Pressure 130/52 135/50 135/50 O2 Sat by Pulse 97 98 97 Oximetry 08/15/20 08/15/20 08/15/20 08:00 08:15 09:00 Temperature 98.8 F Pulse Rate 76 78 76 Pulse Rate [ 76 From Monitor] Respiratory 17 20 19 Rate Blood Pressure 142/56 140/60 142/56 O2 Sat by Pulse 97 98 98 Oximetry 08/15/20 08/15/20 09:08 10:00 Temperature Pulse Rate 75 77 Pulse Rate [ From Monitor] Respiratory 15 Rate Blood Pressure 134/50 142/56 O2 Sat by Pulse 98 Oximetry - Lab 08/11/20 03:55 08/14/20 04:50 Most recent lab results ABG pH 7.344 pH Units (7.350-7.450) L 08/02/20 11:25 ABG pCO2 39.0 mm Hg 08/02/20 11:25 ABG pO2 101.1 mm Hg (80.0-90.0) H 08/02/20 11:25 ABG HCO3 20.8 mmol/L (20.0-26.0) 08/02/20 11:25 ABG O2 Saturation 97.5 % (95.0-99.0) 08/02/20 11:25 Calcium 8.0 mg/dL (8.4-10.2) L 08/14/20 04:50 Magnesium 2.70 mg/dL (1.7-2.3) H 07/28/20 04:30 Urine Creatinine 33.3 mg/dL (0.1-20.0) H 07/06/20 13:20 Urine Sodium 21 mmol/L 07/06/20 13:20 Urine Total Protein 196 mg/dL (5-11.8) H 06/06/20 04:00 Medications & Allergies - Medications Allergies/Adverse Reactions: Allergies No Known Allergies Allergy (Verified 01/21/20 12:28) Home Medications: Home Medications Medication Instructions Recorded Confirmed Last Taken Type AtorvaSTATin [Lipitor] 20 mg PO QHS 05/12/20 05/29/20 Unknown History lisinopriL [Zestril TAB] 40 mg PO QDAY 05/12/20 05/29/20 Unknown History metFORMIN [Glucophage] 850 mg PO BID 05/12/20 05/29/20 Unknown History Acetaminophen [Acetaminophen TAB] 650 mg PO Q4H PRN tablet 05/13/20 05/29/20 Unknown Rx Dicyclomine [Bentyl] 20 mg PO BID #20 tablet 05/13/20 05/29/20 Unknown Rx Famotidine [Pepcid] 20 mg PO BID #30 tablet 05/13/20 05/29/20 Unknown Rx carvediloL [Coreg] 6.25 mg PO BID #60 05/13/20 05/29/20 Unknown Rx Active Medications: Generic Name Dose Route Start Last Admin Trade Name Freq PRN Reason Stop Dose Admin Acetaminophen 650 mg 06/09/20 10:57 06/29/20 21:18 Tylenol FEEDTUBE 650 mg Q6H PRN Administration Fever >101 Amlodipine Besylate 10 mg 06/02/20 11:00 08/15/20 09:08 Amlodipine PO 10 mg DAILY NELSON Administration Lipase/Protease/Amylase 1 each 05/29/20 13:39 08/10/20 22:45 Pancreaze 10,500 Unit FEEDTUBE 1 each PRN PRN Administration For Clogged Feeding Tube Epoetin Javon 10,000 unit 07/29/20 11:29 08/10/20 12:08 Procrit IV 10,000 unit SCOTTY PRN Administration hemodialysis Glycopyrrolate 2 mg 06/09/20 14:00 08/15/20 08:40 Glycopyrrolate PO 2 mg TID NELSON Administration Heparin Sodium (Porcine) 5,000 unit 06/30/20 14:00 08/15/20 06:05 Heparin SUB-Q 5,000 unit Q8HR NELSON Administration Heparin Sodium (Porcine) 5,000 unit 07/29/20 11:29 08/02/20 23:15 Heparin IV 5,000 unit SCOTTY PRN Administration hemodialysis Hydralazine HCl 100 mg 07/14/20 14:00 08/15/20 08:40 Apresoline PO 100 mg TID NELSON Administration Hydrophilic Ointment 1 applic 05/28/20 13:49 Vaseline Lip Therapy TP Q2HR PRN Dry Lips Norepinephrine 4 mg in 250 mls @ 7.5 mls/hr 07/23/20 20:00 08/05/20 05:21 Levophed Drip 4 Mg/Ns 250 Ml IV 0 mcg/min TITR NELSON 0 mls/hr Titration Protocol 2 MCG/MIN Phenytoin 150 mg/ Sodium 103 mls @ 408 mls/hr 08/03/20 09:00 08/15/20 06:06 Chloride IV 408 mls/hr Q8HR NELSON Administration Sodium Chloride 100 mls @ 999 mls/hr 08/04/20 22:27 Nacl 0.9% IV SCOTTY PRN Hypotension Insulin Glargine 10 units 06/08/20 22:00 08/14/20 21:05 Lantus SUB-Q 10 units QHS NELSON Administration Insulin Human Lispro 0 unit 05/29/20 18:00 08/15/20 08:05 Humalog SUB-Q Not Given Q6H [facility] Protocol Labetalol HCl 20 mg 06/03/20 09:00 07/31/20 12:14 Labetalol IV 20 mg Q4H PRN Administration HYPERTENSION Lansoprazole 30 mg 08/08/20 10:00 08/15/20 09:07 Prevacid Solutab FEEDTUBE 30 mg QDAY NELSON Administration Levetiracetam 1,000 mg 08/08/20 22:00 08/15/20 09:07 Keppra PO 1,000 mg BID NELSON Administration Minoxidil 5 mg 07/21/20 10:00 08/15/20 09:08 Loniten PO 5 mg BID NELSON Administration Multi-Ingred Cream/Lotion/Oil/Oint 1 applic 05/28/20 13:49 Artificial Tears Ophth Oint OU Q4HR PRN Dry Eye(s) Ondansetron HCl 4 mg 06/02/20 09:00 06/09/20 16:48 Zofran IV 4 mg Q8H PRN Administration Nausea And Vomiting Senna 17.6 mg 06/03/20 10:00 08/15/20 09:09 Senokot FEEDTUBE 17.6 mg BID NELSON Administration Simple Syrup 15 ml 05/29/20 13:39 Simple Syrup FEEDTUBE PRN PRN Hypoglycemia Simple Syrup 30 ml 05/29/20 13:39 Simple Syrup FEEDTUBE PRN PRN Hypoglycemia Sodium Bicarbonate 325 mg 05/29/20 13:39 07/07/20 10:36 Sodium Bicarbonate FEEDTUBE 325 mg PRN PRN Administration For Clogged Feeding Tube Sodium Chloride 10 ml 05/28/20 22:00 08/14/20 21:05 Sodium Chloride Flush Syringe 10 Ml IV 10 ml BID NELSON Administration Sodium Chloride 10 ml 05/28/20 19:08 08/11/20 12:42 Sodium Chloride Flush Syringe 10 Ml IV 10 ml PRN PRN Administration LINE FLUSH Torsemide 100 mg 08/13/20 06:00 08/15/20 06:06 Demadex PO 100 mg DAILY@0600 NELSON Administration
--- NOTE | 2020-08-15 18:55 | Progress Note ---
Assessment and Plan Assessment and plan: 05/28/2020 COVID-19 test positive 06/29/2020 COVID-19 test positive 07/14/2020 COVID-19 test positive 08/09/2020 COVID-19 test negative DNR status Awaiting DC home with hospice[pending family decision] --s/p cardiopulmonary arrest on admission, 06/26 and 07/01, EF 45-50% on 2d echo, medical Mx per cardiology --Bradycardia: Patient is on dopamine and epinephrine for bradycardia beta-hugh discontinued, Heart rate is in the 60s to 70s --Anoxic brain injury, neurology consulted, neuro requested MRI brain, EEG MRI brain could not be done due to body habitus, --Acute hypoxemic respiratory failure; vent dependent intubated on admission, extubated on 06/12/20 then placed on high flow o2 patient developed another respiratory arrest on 06/26 - reintubated Patient not tolerating weaning parameters CC following, Surgery evaluated the patient for trach and PEG COVID-19 test positive x3, trach and PEG pending -- Hypertension; well controlled Continue amlodipine, clonidine and hydralazine and minoxidil, closely monitor blood pressures, PRN labetalol --Seizures seizure precautions; continue Keppra, and Dilantin EEG showed epileptiform discharges per review of neurology note --Rectal bleeding; resolved --Acute blood loss anemia; total 4 units PRBC transfused monitor H&H, GI following, no plans of endoscopy --Severe sepsis; completed antibiotics per ID persistently positive for COVID-19 and treated for Klebsiella pneumoniae --COVID-19 b/l PNA Completed remdesivir on 06/02 Completed dexamethasone - Last dose 06/07 COVID 19 test positive x 3 during this admission --Superficial left cephalic vein DVT/elevated D-dimers[COVID 19] Patient initially started on heparin drip from 05/29/20 D-dimers improved [id number] treated with Eliquis 5 mg twice a day for 1 week[per ID] stop date 06/26/2020 -- Acute toxic metabolic encephalopathy, POA likely from sepsis and s/p cardiac arrest with possible anoxic injury -- Acute renal failure: Management per nephrology Initiated HD. HD as needed --Klebsiella pneumonia: s/p 5 days of cefepime on 07/04/2020 --Acute on chronic systolic heart failure Cardiology following. Ef 45% --Transaminitis. Resolved etiology likely from COVID-19 --Hyperkalemia; improved --Hyponatremia Monitor electrolytes, now on HD --Shock; resolved -- DVT prophylaxis Eliquis, SCD to bilateral lower extremities while in bed -- Advance care planning Patient is critically ill with multiple medical problems Poor prognosis. --DNR status; The high probability of a clinically significant, sudden or life threatening deterioration of the [FRONT OFFICE ATTENDANT, CVS, renal] system(s) required my full and direct attention, intervention and personal management. The aggregate critical care time was [32] minutes. This time is in addition to time spent performing reported procedures but includes the following: [x] Data Review and interpretation [x] Patient assessment and monitoring of vital signs [x] Documentation [x] Medication orders and management 08/13/20; patient is DNR status now, family considering home with home hospice, initially Home hospice evaluated the patient However family did not make the decision, awaiting DC home with home hospice pending family's decision 08/15/20; patient is awaiting discharge home with home hospice, pending family's decision, family unable to be reached Continue current management, very poor prognosis, anoxic brain injury History Interval history: I have seen and examined the patient at the bedside today Isolation precautions, PPE protocols strictly followed Clinically no change, patient is critically ill Intubated on ventilatory support Unable to wean Vital signs noted Hospitalist Physical - Constitutional Vitals: Temp Pulse Resp BP Pulse Ox 98.9 F 80 22 132/59 96 08/15/20 16:00 08/15/20 17:00 08/15/20 17:00 08/15/20 17:00 08/15/20 17:00 General appearance: Present: no acute distress, well-nourished, obese (Morbidly obese), other (Intubated on ventilatory support) - EENT Eyes: Present: PERRL, EOM intact - Neck Neck: Present: supple, normal ROM - Respiratory Respiratory effort: normal Respiratory: bilateral: diminished, rhonchi, negative: rales, wheezing - Cardiovascular Rhythm: regular Heart Sounds: Present: S1 & S2 - Extremities Extremities: no ischemia Extremity abnormal: edema - Abdominal General gastrointestinal: soft, non-tender, non-distended, normal bowel sounds - Integumentary Integumentary: Present: clear, warm - Psychiatric Psychiatric: other (Noncommunicative on vent) - Neurologic Neurologic: other (Unresponsive on vent) HEART Score - HEART Score Troponin: Troponin T 0.067 ng/mL (0.00-0.029) H 07/01/20 06:01 Results - Labs CBC & Chem 7: 08/11/20 03:55 08/14/20 04:50 Labs: Laboratory Last Values WBC 7.2 K/mm3 (4.5-11.0) 08/11/20 03:55 RBC 2.22 M/mm3 (3.65-5.03) L 08/11/20 03:55 Hgb 6.9 gm/dl (10.1-14.3) L 08/11/20 03:55 Hct 20.1 % (30.3-42.9) L 08/11/20 03:55 MCV 90 fl (79-97) 08/11/20 03:55 MCH 31 pg (28-32) 08/11/20 03:55 MCHC 34 % (30-34) 08/11/20 03:55 RDW 18.3 % (13.2-15.2) H 08/11/20 03:55 Plt Count 300 K/mm3 (140-440) 08/11/20 03:55 Lymph % (Auto) 11.2 % (13.4-35.0) L 08/11/20 03:55 [place] % (Auto) 8.8 % (0.0-7.3) H 08/11/20 03:55 Eos % (Auto) 3.0 % (0.0-4.3) 08/11/20 03:55 Baso % (Auto) 0.7 % (0.0-1.8) 08/11/20 03:55 Lymph # (Auto) 0.8 K/mm3 (1.2-5.4) L 08/11/20 03:55 [place] # (Auto) 0.6 K/mm3 (0.0-0.8) 08/11/20 03:55 Eos # (Auto) 0.2 K/mm3 (0.0-0.4) 08/11/20 03:55 Baso # (Auto) 0.1 K/mm3 (0.0-0.1) 08/11/20 03:55 Add Manual Diff Complete 07/29/20 13:01 Total Counted 100 07/29/20 13:01 Seg Neutrophils % 76.3 % (40.0-70.0) H 08/11/20 03:55 Seg Neuts % (Manual) 86.0 % (40.0-70.0) H 07/29/20 13:01 Band Neutrophils % 0 % 07/29/20 13:01 Lymphocytes % (Manual) 6.0 % (13.4-35.0) L 07/29/20 13:01 Reactive Lymphs % (Man) 0 % 07/29/20 13:01 Monocytes % (Manual) 8.0 % (0.0-7.3) H 07/29/20 13:01 Eosinophils % (Manual) 0 % (0.0-4.3) 07/29/20 13:01 Basophils % (Manual) 0 % (0.0-1.8) 07/29/20 13:01 Metamyelocytes % 0 % 07/29/20 13:01 Myelocytes % 0 % 07/29/20 13:01 Promyelocytes % 0 % 07/29/20 13:01 Blast Cells % 0 % 07/29/20 13:01 Nucleated RBC % Not Reportable 07/29/20 13:01 Seg Neutrophils # 5.5 K/mm3 (1.8-7.7) 08/11/20 03:55 Seg Neutrophils # Man 8.9 K/mm3 (1.8-7.7) H 07/29/20 13:01 Band Neutrophils # 0.0 K/mm3 07/29/20 13:01 Lymphocytes # (Manual) 0.6 K/mm3 (1.2-5.4) L 07/29/20 13:01 Abs React Lymphs (Man) 0.0 K/mm3 07/29/20 13:01 Monocytes # (Manual) 0.8 K/mm3 (0.0-0.8) 07/29/20 13:01 Eosinophils # (Manual) 0.0 K/mm3 (0.0-0.4) 07/29/20 13:01 Basophils # (Manual) 0.0 K/mm3 (0.0-0.1) 07/29/20 13:01 Metamyelocytes # 0.0 K/mm3 07/29/20 13:01 Myelocytes # 0.0 K/mm3 07/29/20 13:01 Promyelocytes # 0.0 K/mm3 07/29/20 13:01 Blast Cells # 0.0 K/mm3 07/29/20 13:01 WBC Morphology Not Reportable 07/29/20 13:01 Hypersegmented Neuts Not Reportable 07/29/20 13:01 Hyposegmented Neuts Not Reportable 07/29/20 13:01 Hypogranular Neuts Not Reportable 07/29/20 13:01 Smudge Cells Not Reportable 07/29/20 13:01 Toxic Granulation Not Reportable 07/29/20 13:01 Toxic Vacuolation Not Reportable 07/29/20 13:01 Dohle Bodies Not Reportable 07/29/20 13:01 Pelger-Huet Anomaly Not Reportable 07/29/20 13:01 Sanjuanita Rods Not Reportable 07/29/20 13:01 Platelet Estimate Consistent w auto 07/29/20 13:01 Clumped Platelets Not Reportable 07/29/20 13:01 Plt Clumps, EDTA Not Reportable 07/29/20 13:01 Large Platelets Not Reportable 07/29/20 13:01 Giant Platelets Not Reportable 07/29/20 13:01 Platelet Satelliting Not Reportable 07/29/20 13:01 Plt Morphology Comment Not Reportable 07/29/20 13:01 RBC Morphology Normal 07/29/20 13:01 Dimorphic RBCs Not Reportable 07/29/20 13:01 Polychromasia Not Reportable 07/29/20 13:01 Hypochromasia Not Reportable 07/29/20 13:01 Poikilocytosis Not Reportable 07/29/20 13:01 Anisocytosis Not Reportable 07/29/20 13:01 Microcytosis Not Reportable 07/29/20 13:01 Macrocytosis Not Reportable 07/29/20 13:01 Spherocytes Not Reportable 07/29/20 13:01 Pappenheimer Bodies Not Reportable 07/29/20 13:01 Sickle Cells Not Reportable 07/29/20 13:01 Target Cells Not Reportable 07/29/20 13:01 Tear Drop Cells Not Reportable 07/29/20 13:01 Ovalocytes Not Reportable 07/29/20 13:01 Helmet Cells Not Reportable 07/29/20 13:01 [place] Bodies Not Reportable 07/29/20 13:01 [place] Rings Not Reportable 07/29/20 13:01 [place] Cells Not Reportable 07/29/20 13:01 Bite Cells Not Reportable 07/29/20 13:01 Crenated Cell Not Reportable 07/29/20 13:01 Elliptocytes Not Reportable 07/29/20 13:01 Acanthocytes (Spur) Not Reportable 07/29/20 13:01 Rouleaux Not Reportable 07/29/20 13:01 Hemoglobin C Crystals Not Reportable 07/29/20 13:01 Schistocytes Not Reportable 07/29/20 13:01 Malaria parasites Not Reportable 07/29/20 13:01 Kev Bodies Not Reportable 07/29/20 13:01 Hem Pathologist Commnt No 07/29/20 13:01 PT 14.2 Sec. (12.2-14.9) 05/29/20 15:10 INR 1.08 (0.87-1.13) 05/29/20 15:10 APTT 27.2 Sec. (24.2-36.6) 05/29/20 15:10 D-Dimer 2310.15 ng/mlDDU (0-234) H 06/29/20 14:45 Heparin Anti-Xa Level 0.34 U.I./ml (0.3-0.7) 06/19/20 10:46 ABG pH 7.344 pH Units (7.350-7.450) L 08/02/20 11:25 POC ABG pCO2 44.1 mmHg (32.0-48.0) 07/18/20 04:24 ABG pCO2 39.0 mm Hg 08/02/20 11:25 ABG Oxyhemoglobin 92.6 (94-98) L 06/23/20 12:34 POC ABG pO2 86.8 mmHg (83-108) 07/18/20 04:24 ABG pO2 101.1 mm Hg (80.0-90.0) H 08/02/20 11:25 POC ABG HCO3 25.6 07/18/20 04:24 ABG HCO3 20.8 mmol/L (20.0-26.0) 08/02/20 11:25 ABG O2 Saturation 97.5 % (95.0-99.0) 08/02/20 11:25 ABG O2 Content 9.1 (0.0-44) 08/02/20 11:25 POC ABG Base Excess 0.4 07/18/20 04:24 ABG Base Excess -4.5 mmol/L (-2.0-3.0) L 08/02/20 11:25 ABG Hemoglobin 6.6 gm/dl (12.0-16.0) L 08/02/20 11:25 ABG Carboxyhemoglobin 1.8 % (0.0-5.0) 08/02/20 11:25 ABG Methemoglobin 0.2 % (0.0-1.5) 08/02/20 11:25 VBG pH 7.152 (7.320-7.420) L* 05/28/20 13:47 ABG Sodium 131.6 mmol/L (136.0-145.0) L 07/18/20 04:24 ABG Potassium 4.9 mmol/L (3.40-4.50) H 07/18/20 04:24 ABG Chloride 104.0 mmol/L (98-107) 07/18/20 04:24 ABG Glucose 131 mg/dL (65-95) H 07/18/20 04:24 Carboxyhemoglobin 0.5 (0.5-1.5) 06/23/20 12:34 Oxyhemoglobin 95.5 % (95.0-99.0) 08/02/20 11:25 FiO2 30 % 08/02/20 11:25 Sodium 132 mmol/L (137-145) L 08/14/20 04:50 Potassium 4.2 mmol/L (3.6-5.0) 08/14/20 04:50 Chloride 93.2 mmol/L (98-107) L 08/14/20 04:50 Carbon Dioxide 29 mmol/L (22-30) 08/14/20 04:50 Anion Gap 14 mmol/L 08/14/20 04:50 BUN 58 mg/dL (7-17) H 08/14/20 04:50 Creatinine 2.6 mg/dL (0.6-1.2) H 08/14/20 04:50 Estimated GFR 19 ml/min 08/14/20 04:50 BUN/Creatinine Ratio 22 % 08/14/20 04:50 Glucose 106 mg/dL (65-100) H 08/14/20 04:50 POC Glucose 116 mg/dL (70-105) H 08/15/20 18:11 Lactic Acid 0.40 mmol/L (0.7-2.0) L 08/03/20 04:38 Calcium 8.0 mg/dL (8.4-10.2) L 08/14/20 04:50 Ferritin 223.6 ng/mL (10.0-200.0) H 06/29/20 14:45 Magnesium 2.70 mg/dL (1.7-2.3) H 07/28/20 04:30 Lactate Dehydrogenase 367 units/L (91-180) H 06/29/20 14:45 Total Bilirubin 0.20 mg/dL (0.1-1.2) 08/05/20 05:35 AST 53 units/L (5-40) H 08/05/20 05:35 ALT 44 units/L (7-56) 08/05/20 05:35 Alkaline Phosphatase 501 units/L (35-129) H 08/05/20 05:35 C-Reactive Protein 3.60 mg/dL (0.00-1.30) H 06/29/20 14:45 Total Creatine Kinase 300 units/L (30-135) H 07/01/20 06:01 CK-MB (CK-2) 2.0 ng/mL (0.0-4.0) 07/01/20 06:01 CK-MB (CK-2) Rel Index 0.6 (0-4) 07/01/20 06:01 Troponin T 0.067 ng/mL (0.00-0.029) H 07/01/20 06:01 Total Protein 6.1 g/dL (6.3-8.2) L 08/05/20 05:35 Albumin 2.2 g/dL (3.9-5) L 08/05/20 05:35 Albumin/Globulin Ratio 0.6 % 08/05/20 05:35 Triglycerides 142 mg/dL (2-149) 07/01/20 06:01 Cholesterol 137 mg/dL (50-199) 07/01/20 06:01 LDL Cholesterol Direct 62 mg/dL (50-130) 07/01/20 06:01 HDL Cholesterol 61 mg/dL (40-59) H 07/01/20 06:01 Cholesterol/HDL Ratio 2.24 % 07/01/20 06:01 Procalcitonin 0.18 ng/mL (<0.15) 07/14/20 04:55 Arterial Blood Glucose 131 mg/dL (65-95) H 07/18/20 04:24 Arterial Blood Ionized Calcium 5.1 mg/dL (4.6-5.3) 07/18/20 04:24 Urine Color Yellow (Yellow) 06/06/20 04:00 Urine Turbidity Cloudy (Clear) 06/06/20 04:00 Urine pH 5.0 (5.0-7.0) 06/06/20 04:00 Ur Specific [place] 1.012 (1.003-1.030) 06/06/20 04:00 Urine Protein 100 mg/dl mg/dL (Negative) 06/06/20 04:00 Urine Glucose (UA) 50 mg/dL (Negative) 06/06/20 04:00 Urine Ketones Neg mg/dL (Negative) 06/06/20 04:00 Urine Blood Sm (Negative) 06/06/20 04:00 Urine Nitrite Neg (Negative) 06/06/20 04:00 Urine Bilirubin Neg (Negative) 06/06/20 04:00 Urine Urobilinogen < 2.0 mg/dL (<2.0) 06/06/20 04:00 Ur Leukocyte Esterase Neg (Negative) 06/06/20 04:00 Urine WBC (Auto) 15.0 /HPF (0.0-6.0) H 06/06/20 04:00 Urine RBC (Auto) 23.0 /HPF (0.0-6.0) 06/06/20 04:00 U Epithel Cells (Auto) 8.0 /HPF (0-13.0) 06/06/20 04:00 Urine Bacteria (Auto) 2+ /HPF (Negative) 06/06/20 04:00 Amorphous Crystals 1+ 06/06/20 04:00 Hyaline Casts 16 /LPF 06/06/20 04:00 Urine Mucus 2+ /HPF 06/06/20 04:00 Urine Yeast (Budding) 2+ /HPF 06/03/20 Unknown Urine Creatinine 33.3 mg/dL (0.1-20.0) H 07/06/20 13:20 Urine Sodium 21 mmol/L 07/06/20 13:20 Urine Total Protein 196 mg/dL (5-11.8) H 06/06/20 04:00 Nasal Screen MRSA (PCR) Negative (Negative) 06/29/20 08:30 Phenytoin 4.7 ug/mL (10.0-20.0) L 08/08/20 15:00 Coronavirus (PCR) Negative (Negative) 08/09/20 09:50 Hepatitis A IgM Ab Non-reactive (NonReactive) 07/29/20 13:01 Hep Bs Antigen Non-reactive (Negative) 07/29/20 13:01 Hep B Core IgM Ab Non-reactive (NonReactive) 07/29/20 13:01 Hepatitis C Antibody Non-reactive (NonReactive) 07/29/20 13:01 Blood Type A POSITIVE 08/05/20 09:15 Antibody Screen Negative 08/05/20 09:15 Crossmatch See Detail 08/05/20 09:15 - Diagnostic Impressions Diagnostic Impressions: Echocardiogram Limited Views 05/29/20 13:52 Transthoracic Echocardiogram Indication: Pulm Embolus BP: 169/76 HR: 85 Conclusions *Limited study for RV size post cardiopulmonar arrest. *RV is only slightly dilated, no significant difference from prior echo 05/13/2020. *Global left ventricular systolic function is at the lower limits of normal. *The estimated ejection fraction is 45-50%. *Mild to moderate concentric left ventricular hypertrophy is observed. *The left and right atria are both mild to moderately dilated. Findings Left Ventricle: The left ventricular chamber size is mildly dilated. Mild to moderate concentric left ventricular hypertrophy is observed. Global left ventricular systolic function is at the lower limits of normal. The estimated ejection fraction is 45-50%. Left Atrium: The left atrium is mild to moderately dilated. Right Ventricle: The right ventricle is slightly dilated. Right Atrium: The right atrium is mild to moderately dilated. Aortic Valve: The aortic valve leaflets are moderately thickened. Mitral Valve: There is mitral annular calcification. The mitral valve leaflets are moderately thickened. Tricuspid Valve: The tricuspid valve leaflets are mildly thickened. Pericardium: A trivial pericardial effusion is visualized. NDUM: 05/29/20 1808 Amended Report Transthoracic Echocardiogram Indication: Pulm Embolus BP: 169/76 HR: 85 Conclusions *Limited study for RV size post cardiopulmonary arrest. *RV is only slightly dilated, no significant difference from prior echo 05/13/2020. *Global left ventricular systolic function is at the lower limits of normal. *The estimated ejection fraction is 45-50%. *Mild to moderate concentric left ventricular hypertrophy is observed. *The left and right atria are both mild to moderately dilated. Findings Left Ventricle: The left ventricular chamber size is mildly dilated. Mild to moderate concentric left ventricular hypertrophy is observed. Global left ventricular systolic function is at the lower limits of normal. The estimated ejection fraction is 45-50%. Left Atrium: The left atrium is mild to moderately dilated. Right Ventricle: The right ventricle is slightly dilated. Right Atrium: The right atrium is mild to moderately dilated. Aortic Valve: The aortic valve leaflets are moderately thickened. Mitral Valve: There is mitral annular calcification. The mitral valve leaflets are moderately thickened. Tricuspid Valve: The tricuspid valve leaflets are mildly thickened. Pericardium: A trivial pericardial effusion is visualized. Helm/IV: Voiding Method Indwelling Catheter IV Catheter Type [Right VAS Cath Femoral] IV Catheter Type [Left Forearm INT / Saline Lock ] IV Catheter Type [Left Wrist] Peripheral IV IV Catheter Type [Left Upper Peripheral IV arm] IV Catheter Type [Right CVL Internal Jugular] IV Catheter Type [Right Hand] INT / Saline Lock IV Catheter Type [Right Wrist] Not found on patient IV Catheter Type [Left Hand] INT / Saline Lock IV Catheter Type [Left INT / Saline Lock Antecubital] IV Catheter Type [Right Peripheral IV Forearm] IV Catheter Type [Left Leg] Intra-osseous Active Medications - Current Medications Current Medications: Generic Name Dose Route Start Last Admin Trade Name Freq PRN Reason Stop Dose Admin Acetaminophen 650 mg 06/09/20 10:57 06/29/20 21:18 Tylenol FEEDTUBE 650 mg Q6H PRN Administration Fever >101 Amlodipine Besylate 10 mg 06/02/20 11:00 08/15/20 09:08 Amlodipine PO 10 mg DAILY NELSON Administration Lipase/Protease/Amylase 1 each 05/29/20 13:39 08/10/20 22:[address] 10,500 Unit FEEDTUBE 1 each PRN PRN Administration For Clogged Feeding Tube Epoetin Javon 10,000 unit 07/29/20 11:29 08/10/20 12:08 Procrit IV 10,000 unit SCOTTY PRN Administration hemodialysis Glycopyrrolate 2 mg 06/09/20 14:00 08/15/20 14:39 Glycopyrrolate PO 2 mg TID NELSON Administration Heparin Sodium (Porcine) 5,000 unit 06/30/20 14:00 08/15/20 14:39 Heparin SUB-Q 5,000 unit Q8HR NELSON Administration Heparin Sodium (Porcine) 5,000 unit 07/29/20 11:29 08/02/20 23:15 Heparin IV 5,000 unit SCOTTY PRN Administration hemodialysis Hydralazine HCl 100 mg 07/14/20 14:00 08/15/20 14:39 Apresoline PO 100 mg TID NELSON Administration Hydrophilic Ointment 1 applic 05/28/20 13:49 Vaseline Lip Therapy TP Q2HR PRN Dry Lips Norepinephrine 4 mg in 250 mls @ 7.5 mls/hr 07/23/20 20:00 08/05/20 05:21 Levophed Drip 4 Mg/Ns 250 Ml IV 0 mcg/min TITR NELSON 0 mls/hr Titration Protocol 2 MCG/MIN Phenytoin 150 mg/ Sodium 103 mls @ 408 mls/hr 08/03/20 09:00 08/15/20 14:39 Chloride IV 408 mls/hr Q8HR NELSON Administration Sodium Chloride 100 mls @ 999 mls/hr 08/04/20 22:27 Nacl 0.9% IV SCOTTY PRN Hypotension Insulin Glargine 10 units 06/08/20 22:00 08/14/20 21:05 Lantus SUB-Q 10 units QHS NELSON Administration Insulin Human Lispro 0 unit 05/29/20 18:00 08/15/20 12:35 Humalog SUB-Q Not Given Q6H [facility] Protocol Labetalol HCl 20 mg 06/03/20 09:00 07/31/20 12:14 Labetalol IV 20 mg Q4H PRN Administration HYPERTENSION Lansoprazole 30 mg 08/08/20 10:00 08/15/20 09:07 Prevacid Solutab FEEDTUBE 30 mg QDAY NELSON Administration Levetiracetam 1,000 mg 08/08/20 22:00 08/15/20 09:07 Keppra PO 1,000 mg BID NELSON Administration Minoxidil 5 mg 07/21/20 10:00 08/15/20 09:08 Loniten PO 5 mg BID NELSON Administration Multi-Ingred Cream/Lotion/Oil/Oint 1 applic 05/28/20 13:49 Artificial Tears Ophth Oint OU Q4HR PRN Dry Eye(s) Ondansetron HCl 4 mg 06/02/20 09:00 06/09/20 16:48 Zofran IV 4 mg Q8H PRN Administration Nausea And Vomiting Senna 17.6 mg 06/03/20 10:00 08/15/20 09:09 Senokot FEEDTUBE 17.6 mg BID NELSON Administration Simple Syrup 15 ml 05/29/20 13:39 Simple Syrup FEEDTUBE PRN PRN Hypoglycemia Simple Syrup 30 ml 05/29/20 13:39 Simple Syrup FEEDTUBE PRN PRN Hypoglycemia Sodium Bicarbonate 325 mg 05/29/20 13:39 07/07/20 10:36 Sodium Bicarbonate FEEDTUBE 325 mg PRN PRN Administration For Clogged Feeding Tube Sodium Chloride 10 ml 05/28/20 22:00 08/15/20 10:00 Sodium Chloride Flush Syringe 10 Ml IV 10 ml BID NELSON Administration Sodium Chloride 10 ml 05/28/20 19:08 08/11/20 12:42 Sodium Chloride Flush Syringe 10 Ml IV 10 ml PRN PRN Administration LINE FLUSH Torsemide 100 mg 08/13/20 06:00 08/15/20 06:06 Demadex PO 100 mg DAILY@0600 NELSON Administration Nutrition/Malnutrition Assess - Dietary Evaluation Nutrition/Malnutrition Findings: Nutrition Notes Start: 05/29/20 11:45 Freq: Status: Active Protocol: Document 08/11/20 12:18 KYLIE (Rec: 08/11/20 12:23 KYLIE [id number]) Co-Sign 08/11/20 12:18 ALFRED Nutrition Notes Initial or Follow up Reassessment Current Diagnosis Acute Kidney Injury,Diabetes, Heart Failure,Respiratory Failure Other Pertinent Diagnosis COVID-19 (+), Pulmonary edema, dysphagia Current Diet Nepro at 40 ml/hr Labs/Tests Na 135 BUN 48 Cr 2.2 BG 53 POC 72 Pertinent Medications Dextrose 75g Lasix Height 5 ft 6 in Weight 123 kg [place] Body Weight (kg) 59.09 BMI 43.7 Weight Status Morbidly Obese Subjective/Other Information F/u TF, fluid, Na. Pt remains fluid overloaded. Hospice care possibility. Percent of energy/protein needs met: 100%/100% (Protein based on minimum 1.2g /kg IBW for dialysis) Burn Absent Trauma Absent GI Symptoms None Current % PO Negligible Minimum of two criteria No Fluid Accumulation Mild (non-severe) #1 Nutrition Diagnosis Inadequate oral intake Diagnosis Progress(for reassessment Continues documentation) Is patient on ventilator? Yes Is Patient Ambulatory and/or Out of Bed No REE-(Iron-St. Jeor-confined to bed) 2172.576 Kcal/Kg value to use for calculation 13 Approximate Energy Requirements Using 1599 kcal/Kg Calculation Used for Recommendations Kcal/kg Additional Notes Protein needs up to 148g (up to 2.5g/kg IBW) with minimum of 71g (>1.2g/kg of IBW for dialysis) Fluid needs 1ml/kcal or per MD orders Nutrition Intervention Change Diet Order: Continue Nutrition Support: Nepro at 40 ml/hr Flush 50ml q4h Kcal 1,728 Protein (gm) 78 Fluid (mL) 697 Goal #1 Meet at least 75% of energy and protein needs by TF. Anticipated Discharge Needs: Unable to determine at this time Follow-Up By: 08/18/20 Additional Comments F/u TF and POC
[2020-08-15] MEDS: INSULIN GLARGINE 100 UNITS/ML SUB-Q SCH (21:21)
[2020-08-16] MEDS: HEPARIN 5,000 UNIT/1 ML VIAL SUB-Q SCH ×3 (06:05→21:47)
[2020-08-16] MEDS: PHENYTOIN IV SCH ×3 (06:05→21:57)
[2020-08-16] MEDS: TORSEMIDE 100 MG TAB PO SCH (06:05)
[2020-08-16] MEDS: SODIUM CHLORIDE 0.9% IV SCH ×3 (06:05→21:57)
[2020-08-16] MEDS: INSULIN LISPRO 100 UNIT/ML VIAL 3 mL SUB-Q SCH ×4 (08:09→18:32)
[2020-08-16] MEDS: hydrALAZINE 100 MG TAB PO SCH ×3 (08:52→21:57)
[2020-08-16] MEDS: GLYCOPYRROLATE 2 MG TAB PO SCH ×3 (08:52→21:57)
[2020-08-16] MEDS: levETIRAcetam 500 MG/5 ML ORAL LIQD PO SCH ×2 (09:02→21:57)
[2020-08-16] MEDS: LANSOPRAZOLE 30 MG SOLUTAB FEEDTUBE SCH (09:03)
[2020-08-16] MEDS: amLODIPine 10 MG TAB PO SCH (09:03)
[2020-08-16] MEDS: MINOXIDIL 2.5 MG TAB PO SCH ×2 (09:03→21:56)
[2020-08-16] MEDS: SENNOSIDES ORAL LIQD 8.8 MG/5 ML ORAL LIQD FEEDTUBE SCH ×2 (09:04→21:57)
--- NOTE | 2020-08-16 09:43 | Progress Note ---
Assessment and Plan - Patient Problems (1) Acute kidney injury (AVANI) with acute tubular necrosis (ATN) Current Visit: Yes Status: Acute Plan to address problem: With prolonged hospitalization course and worsening renal injury along with volume overload, patient was started on HD. She has not had HD since 08/07. Overall her prognosis remains guarded/poor. Per CM notes, progressing towards hospice. No acute indications for renal replacement therapy at this time. (2) Hyperkalemia Current Visit: Yes Status: Acute Plan to address problem: in the setting of acute kidney injury. Medical management of hyperkalemia. Levels stable at this time. (3) Acute hypoxemic respiratory failure Current Visit: Yes Status: Acute Plan to address problem: management per pulmonary team. Remains intubated at this time. (4) Pneumonia due to COVID-19 virus Current Visit: Yes Status: Acute Plan to address problem: management per ID recommendations. Completed course of remdesivir and steroids. Remains on positive on repeat testing and remains in isolation protocol. Subjective Date of service: 08/16/20 Principal diagnosis: Ac hypoxemic resp failure; COVID-19; pneumonia; CHF; Pulm HTN; OHS; DM II Interval history: No acute changes from renal standpoint. Pending hospice. Objective - Exam Narrative Exam: patient was not directly examined secondary to preservation of PPE - Vital Signs Vital signs: Vital Signs - 12hr 08/15/20 08/15/20 08/15/20 22:00 22:16 23:00 Temperature Pulse Rate 73 75 75 Respiratory 18 18 18 Rate Blood Pressure 135/43 121/52 121/52 O2 Sat by Pulse 98 98 98 Oximetry 08/15/20 08/16/20 08/16/20 23:52 00:00 01:00 Temperature 98.1 F Pulse Rate 75 75 73 Respiratory 19 14 Rate Blood Pressure 128/46 128/46 126/54 O2 Sat by Pulse 99 99 Oximetry 08/16/20 08/16/20 08/16/20 02:00 03:00 04:00 Temperature 98.1 F Pulse Rate 77 76 74 Respiratory 16 9 L 21 Rate Blood Pressure 126/48 123/50 131/46 O2 Sat by Pulse Oximetry 08/16/20 08/16/20 08/16/20 04:15 04:58 05:00 Temperature Pulse Rate 74 80 79 Respiratory 19 Rate Blood Pressure 143/53 132/45 O2 Sat by Pulse 98 Oximetry 08/16/20 08/16/20 08/16/20 06:00 07:00 08:00 Temperature 98.2 F Pulse Rate 77 74 75 Respiratory 18 18 17 Rate Blood Pressure 143/53 130/49 133/52 O2 Sat by Pulse 98 97 97 Oximetry 08/16/20 08/16/20 08:24 09:03 Temperature Pulse Rate 75 74 Respiratory Rate Blood Pressure 144/57 133/44 O2 Sat by Pulse 98 Oximetry - Lab 08/11/20 03:55 08/14/20 04:50 Most recent lab results ABG pH 7.344 pH Units (7.350-7.450) L 08/02/20 11:25 ABG pCO2 39.0 mm Hg 08/02/20 11:25 ABG pO2 101.1 mm Hg (80.0-90.0) H 08/02/20 11:25 ABG HCO3 20.8 mmol/L (20.0-26.0) 08/02/20 11:25 ABG O2 Saturation 97.5 % (95.0-99.0) 08/02/20 11:25 Calcium 8.0 mg/dL (8.4-10.2) L 08/14/20 04:50 Magnesium 2.70 mg/dL (1.7-2.3) H 07/28/20 04:30 Urine Creatinine 33.3 mg/dL (0.1-20.0) H 07/06/20 13:20 Urine Sodium 21 mmol/L 07/06/20 13:20 Urine Total Protein 196 mg/dL (5-11.8) H 06/06/20 04:00 Medications & Allergies - Medications Allergies/Adverse Reactions: Allergies No Known Allergies Allergy (Verified 01/21/20 12:28) Home Medications: Home Medications Medication Instructions Recorded Confirmed Last Taken Type AtorvaSTATin [Lipitor] 20 mg PO QHS 05/12/20 05/29/20 Unknown History lisinopriL [Zestril TAB] 40 mg PO QDAY 05/12/20 05/29/20 Unknown History metFORMIN [Glucophage] 850 mg PO BID 05/12/20 05/29/20 Unknown History Acetaminophen [Acetaminophen TAB] 650 mg PO Q4H PRN tablet 05/13/20 05/29/20 Unknown Rx Dicyclomine [Bentyl] 20 mg PO BID #20 tablet 05/13/20 05/29/20 Unknown Rx Famotidine [Pepcid] 20 mg PO BID #30 tablet 05/13/20 05/29/20 Unknown Rx carvediloL [Coreg] 6.25 mg PO BID #60 05/13/20 05/29/20 Unknown Rx Active Medications: Generic Name Dose Route Start Last Admin Trade Name Freq PRN Reason Stop Dose Admin Acetaminophen 650 mg 06/09/20 10:57 06/29/20 21:18 Tylenol FEEDTUBE 650 mg Q6H PRN Administration Fever >101 Amlodipine Besylate 10 mg 06/02/20 11:00 08/16/20 09:03 Amlodipine PO 10 mg DAILY NELSON Administration Lipase/Protease/Amylase 1 each 05/29/20 13:39 08/10/20 22:[address] 10,500 Unit FEEDTUBE 1 each PRN PRN Administration For Clogged Feeding Tube Epoetin Javon 10,000 unit 07/29/20 11:29 08/10/20 12:08 Procrit IV 10,000 unit SCOTTY PRN Administration hemodialysis Glycopyrrolate 2 mg 06/09/20 14:00 08/16/20 08:52 Glycopyrrolate PO 2 mg TID NELSON Administration Heparin Sodium (Porcine) 5,000 unit 06/30/20 14:00 08/16/20 06:05 Heparin SUB-Q 5,000 unit Q8HR NELSON Administration Heparin Sodium (Porcine) 5,000 unit 07/29/20 11:29 08/02/20 23:15 Heparin IV 5,000 unit SCOTTY PRN Administration hemodialysis Hydralazine HCl 100 mg 07/14/20 14:00 08/16/20 08:52 Apresoline PO 100 mg TID NELSON Administration Hydrophilic Ointment 1 applic 05/28/20 13:49 Vaseline Lip Therapy TP Q2HR PRN Dry Lips Norepinephrine 4 mg in 250 mls @ 7.5 mls/hr 07/23/20 20:00 08/05/20 05:21 Levophed Drip 4 Mg/Ns 250 Ml IV 0 mcg/min TITR NELSON 0 mls/hr Titration Protocol 2 MCG/MIN Phenytoin 150 mg/ Sodium 103 mls @ 408 mls/hr 08/03/20 09:00 08/16/20 06:05 Chloride IV 408 mls/hr Q8HR NELSON Administration Sodium Chloride 100 mls @ 999 mls/hr 08/04/20 22:27 Nacl 0.9% IV SCOTTY PRN Hypotension Insulin Glargine 10 units 06/08/20 22:00 08/15/20 21:21 Lantus SUB-Q 10 units QHS NELSON Administration Insulin Human Lispro 0 unit 05/29/20 18:00 08/16/20 08:09 Humalog SUB-Q Not Given Q6H [facility] Protocol Labetalol HCl 20 mg 06/03/20 09:00 07/31/20 12:14 Labetalol IV 20 mg Q4H PRN Administration HYPERTENSION Lansoprazole 30 mg 08/08/20 10:00 08/16/20 09:03 Prevacid Solutab FEEDTUBE 30 mg QDAY NELSON Administration Levetiracetam 1,000 mg 08/08/20 22:00 08/16/20 09:02 Keppra PO 1,000 mg BID NELSON Administration Minoxidil 5 mg 07/21/20 10:00 08/16/20 09:03 Loniten PO 5 mg BID NELSON Administration Multi-Ingred Cream/Lotion/Oil/Oint 1 applic 05/28/20 13:49 Artificial Tears Ophth Oint OU Q4HR PRN Dry Eye(s) Ondansetron HCl 4 mg 06/02/20 09:00 06/09/20 16:48 Zofran IV 4 mg Q8H PRN Administration Nausea And Vomiting Senna 17.6 mg 06/03/20 10:00 08/16/20 09:04 Senokot FEEDTUBE 17.6 mg BID NELSON Administration Simple Syrup 15 ml 05/29/20 13:39 Simple Syrup FEEDTUBE PRN PRN Hypoglycemia Simple Syrup 30 ml 05/29/20 13:39 Simple Syrup FEEDTUBE PRN PRN Hypoglycemia Sodium Bicarbonate 325 mg 05/29/20 13:39 07/07/20 10:36 Sodium Bicarbonate FEEDTUBE 325 mg PRN PRN Administration For Clogged Feeding Tube Sodium Chloride 10 ml 05/28/20 22:00 08/16/20 09:04 Sodium Chloride Flush Syringe 10 Ml IV 10 ml BID NELSON Administration Sodium Chloride 10 ml 05/28/20 19:08 08/11/20 12:42 Sodium Chloride Flush Syringe 10 Ml IV 10 ml PRN PRN Administration LINE FLUSH Torsemide 100 mg 08/13/20 06:00 08/16/20 06:05 Demadex PO 100 mg DAILY@0600 NELSON Administration
--- NOTE | 2020-08-16 17:51 | Progress Note ---
Assessment and Plan Assessment and plan: 05/28/2020 COVID-19 test positive 06/29/2020 COVID-19 test positive 07/14/2020 COVID-19 test positive 08/09/2020 COVID-19 test negative Clinically no change , patient is DNR status Awaiting DC home with hospice[pending family decision] --s/p cardiopulmonary arrest on admission, 06/26 and 07/01, EF 45-50% on 2d echo, medical Mx per cardiology --Bradycardia: Patient is on dopamine and epinephrine for bradycardia beta-hugh discontinued, Heart rate is in the 60s to 70s --Anoxic brain injury, neurology consulted, neuro requested MRI brain, EEG MRI brain could not be done due to body habitus, --Acute hypoxemic respiratory failure; vent dependent intubated on admission, extubated on 06/12/20 then placed on high flow o2 patient developed another respiratory arrest on 06/26 - reintubated Patient not tolerating weaning parameters CC following, Surgery evaluated the patient for trach and PEG COVID-19 test positive x3, trach and PEG pending -- Hypertension; well controlled Continue amlodipine, clonidine and hydralazine and minoxidil, closely monitor blood pressures, PRN labetalol --Seizures seizure precautions; continue Keppra, and Dilantin EEG showed epileptiform discharges per review of neurology note --Rectal bleeding; resolved --Acute blood loss anemia; total 4 units PRBC transfused monitor H&H, GI following, no plans of endoscopy --Severe sepsis; completed antibiotics per ID persistently positive for COVID-19 and treated for Klebsiella pneumoniae --COVID-19 b/l PNA Completed remdesivir on 06/02 Completed dexamethasone - Last dose 06/07 COVID 19 test positive x 3 during this admission --Superficial left cephalic vein DVT/elevated D-dimers[COVID 19] Patient initially started on heparin drip from 05/29/20 D-dimers improved [phone] treated with Eliquis 5 mg twice a day for 1 week[per ID] stop date 06/26/2020 -- Acute toxic metabolic encephalopathy, POA likely from sepsis and s/p cardiac arrest with possible anoxic injury -- Acute renal failure: Management per nephrology Initiated HD. HD as needed --Klebsiella pneumonia: s/p 5 days of cefepime on 07/04/2020 --Acute on chronic systolic heart failure Cardiology following. Ef 45% --Transaminitis. Resolved etiology likely from COVID-19 --Hyperkalemia; improved --Hyponatremia Monitor electrolytes, now on HD --Shock; resolved -- DVT prophylaxis Eliquis, SCD to bilateral lower extremities while in bed -- Advance care planning Patient is critically ill with multiple medical problems Poor prognosis. --DNR status; The high probability of a clinically significant, sudden or life threatening deterioration of the [[employer], CVS, renal] system(s) required my full and direct attention, intervention and personal management. The aggregate critical care time was [32] minutes. This time is in addition to time spent performing reported procedures but includes the following: [x] Data Review and interpretation [x] Patient assessment and monitoring of vital signs [x] Documentation [x] Medication orders and management 08/13/20; patient is DNR status now, family considering home with home hospice, initially Home hospice evaluated the patient However family did not make the decision, awaiting DC home with home hospice pending family's decision 08/15/20; patient is awaiting discharge home with home hospice, pending family's decision, family unable to be reached Continue current management, very poor prognosis, anoxic brain injury 08/16/2020; patient DNR status,awaiting DC home with home hospice, pending decision from family History Interval history: Patient is in isolation room Isolation precautions PPE protocols strictly followed Clinically no change Patient remains unresponsive intubated on vent Unable to wean, vital signs noted Hospitalist Physical - Constitutional Vitals: Temp Pulse Resp BP Pulse Ox 97 F L 74 12 134/52 97 08/16/20 16:00 08/16/20 17:00 08/16/20 17:00 08/16/20 17:00 08/16/20 17:00 General appearance: Present: no acute distress, well-nourished, obese (Morbidly obese), other (Intubated on ventilatory support) - EENT Eyes: Present: PERRL, EOM intact - Neck Neck: Present: supple, normal ROM - Respiratory Respiratory effort: normal Respiratory: bilateral: diminished, rhonchi, negative: rales, wheezing - Cardiovascular Rhythm: regular Heart Sounds: Present: S1 & S2 - Extremities Extremities: no ischemia, No edema - Abdominal General gastrointestinal: soft, non-tender, non-distended, normal bowel sounds - Integumentary Integumentary: Present: clear, warm - Psychiatric Psychiatric: appropriate mood/affect, cooperative - Neurologic Neurologic: CNII-XII intact, moves all extremities HEART Score - HEART Score Troponin: Troponin T 0.067 ng/mL (0.00-0.029) H 07/01/20 06:01 Results - Labs CBC & Chem 7: 08/11/20 03:55 08/14/20 04:50 Labs: Laboratory Last Values WBC 7.2 K/mm3 (4.5-11.0) 08/11/20 03:55 RBC 2.22 M/mm3 (3.65-5.03) L 08/11/20 03:55 Hgb 6.9 gm/dl (10.1-14.3) L 08/11/20 03:55 Hct 20.1 % (30.3-42.9) L 08/11/20 03:55 MCV 90 fl (79-97) 08/11/20 03:55 MCH 31 pg (28-32) 08/11/20 03:55 MCHC 34 % (30-34) 08/11/20 03:55 RDW 18.3 % (13.2-15.2) H 08/11/20 03:55 Plt Count 300 K/mm3 (140-440) 08/11/20 03:55 Lymph % (Auto) 11.2 % (13.4-35.0) L 08/11/20 03:55 Real % (Auto) 8.8 % (0.0-7.3) H 08/11/20 03:55 Eos % (Auto) 3.0 % (0.0-4.3) 08/11/20 03:55 Baso % (Auto) 0.7 % (0.0-1.8) 08/11/20 03:55 Lymph # (Auto) 0.8 K/mm3 (1.2-5.4) L 08/11/20 03:55 Real # (Auto) 0.6 K/mm3 (0.0-0.8) 08/11/20 03:55 Eos # (Auto) 0.2 K/mm3 (0.0-0.4) 08/11/20 03:55 Baso # (Auto) 0.1 K/mm3 (0.0-0.1) 08/11/20 03:55 Add Manual Diff Complete 07/29/20 13:01 Total Counted 100 07/29/20 13:01 Seg Neutrophils % 76.3 % (40.0-70.0) H 08/11/20 03:55 Seg Neuts % (Manual) 86.0 % (40.0-70.0) H 07/29/20 13:01 Band Neutrophils % 0 % 07/29/20 13:01 Lymphocytes % (Manual) 6.0 % (13.4-35.0) L 07/29/20 13:01 Reactive Lymphs % (Man) 0 % 07/29/20 13:01 Monocytes % (Manual) 8.0 % (0.0-7.3) H 07/29/20 13:01 Eosinophils % (Manual) 0 % (0.0-4.3) 07/29/20 13:01 Basophils % (Manual) 0 % (0.0-1.8) 07/29/20 13:01 Metamyelocytes % 0 % 07/29/20 13:01 Myelocytes % 0 % 07/29/20 13:01 Promyelocytes % 0 % 07/29/20 13:01 Blast Cells % 0 % 07/29/20 13:01 Nucleated RBC % Not Reportable 07/29/20 13:01 Seg Neutrophils # 5.5 K/mm3 (1.8-7.7) 08/11/20 03:55 Seg Neutrophils # Man 8.9 K/mm3 (1.8-7.7) H 07/29/20 13:01 Band Neutrophils # 0.0 K/mm3 07/29/20 13:01 Lymphocytes # (Manual) 0.6 K/mm3 (1.2-5.4) L 07/29/20 13:01 Abs React Lymphs (Man) 0.0 K/mm3 07/29/20 13:01 Monocytes # (Manual) 0.8 K/mm3 (0.0-0.8) 07/29/20 13:01 Eosinophils # (Manual) 0.0 K/mm3 (0.0-0.4) 07/29/20 13:01 Basophils # (Manual) 0.0 K/mm3 (0.0-0.1) 07/29/20 13:01 Metamyelocytes # 0.0 K/mm3 07/29/20 13:01 Myelocytes # 0.0 K/mm3 07/29/20 13:01 Promyelocytes # 0.0 K/mm3 07/29/20 13:01 Blast Cells # 0.0 K/mm3 07/29/20 13:01 WBC Morphology Not Reportable 07/29/20 13:01 Hypersegmented Neuts Not Reportable 07/29/20 13:01 Hyposegmented Neuts Not Reportable 07/29/20 13:01 Hypogranular Neuts Not Reportable 07/29/20 13:01 Smudge Cells Not Reportable 07/29/20 13:01 Toxic Granulation Not Reportable 07/29/20 13:01 Toxic Vacuolation Not Reportable 07/29/20 13:01 Dohle Bodies Not Reportable 07/29/20 13:01 Pelger-Huet Anomaly Not Reportable 07/29/20 13:01 Sanjuanita Rods Not Reportable 07/29/20 13:01 Platelet Estimate Consistent w auto 07/29/20 13:01 Clumped Platelets Not Reportable 07/29/20 13:01 Plt Clumps, EDTA Not Reportable 07/29/20 13:01 Large Platelets Not Reportable 07/29/20 13:01 Giant Platelets Not Reportable 07/29/20 13:01 Platelet Satelliting Not Reportable 07/29/20 13:01 Plt Morphology Comment Not Reportable 07/29/20 13:01 RBC Morphology Normal 07/29/20 13:01 Dimorphic RBCs Not Reportable 07/29/20 13:01 Polychromasia Not Reportable 07/29/20 13:01 Hypochromasia Not Reportable 07/29/20 13:01 Poikilocytosis Not Reportable 07/29/20 13:01 Anisocytosis Not Reportable 07/29/20 13:01 Microcytosis Not Reportable 07/29/20 13:01 Macrocytosis Not Reportable 07/29/20 13:01 Spherocytes Not Reportable 07/29/20 13:01 Pappenheimer Bodies Not Reportable 07/29/20 13:01 Sickle Cells Not Reportable 07/29/20 13:01 Target Cells Not Reportable 07/29/20 13:01 Tear Drop Cells Not Reportable 07/29/20 13:01 Ovalocytes Not Reportable 07/29/20 13:01 Helmet Cells Not Reportable 07/29/20 13:01 Jones-Dormont Bodies Not Reportable 07/29/20 13:01 Endeavor Rings Not Reportable 07/29/20 13:01 Julia Cells Not Reportable 07/29/20 13:01 Bite Cells Not Reportable 07/29/20 13:01 Crenated Cell Not Reportable 07/29/20 13:01 Elliptocytes Not Reportable 07/29/20 13:01 Acanthocytes (Spur) Not Reportable 07/29/20 13:01 Rouleaux Not Reportable 07/29/20 13:01 Hemoglobin C Crystals Not Reportable 07/29/20 13:01 Schistocytes Not Reportable 07/29/20 13:01 Malaria parasites Not Reportable 07/29/20 13:01 Kev Bodies Not Reportable 07/29/20 13:01 Hem Pathologist Commnt No 07/29/20 13:01 PT 14.2 Sec. (12.2-14.9) 05/29/20 15:10 INR 1.08 (0.87-1.13) 05/29/20 15:10 APTT 27.2 Sec. (24.2-36.6) 05/29/20 15:10 D-Dimer 2310.15 ng/mlDDU (0-234) H 06/29/20 14:45 Heparin Anti-Xa Level 0.34 U.I./ml (0.3-0.7) 06/19/20 10:46 ABG pH 7.344 pH Units (7.350-7.450) L 08/02/20 11:25 POC ABG pCO2 44.1 mmHg (32.0-48.0) 07/18/20 04:24 ABG pCO2 39.0 mm Hg 08/02/20 11:25 ABG Oxyhemoglobin 92.6 (94-98) L 06/23/20 12:34 POC ABG pO2 86.8 mmHg (83-108) 07/18/20 04:24 ABG pO2 101.1 mm Hg (80.0-90.0) H 08/02/20 11:25 POC ABG HCO3 25.6 07/18/20 04:24 ABG HCO3 20.8 mmol/L (20.0-26.0) 08/02/20 11:25 ABG O2 Saturation 97.5 % (95.0-99.0) 08/02/20 11:25 ABG O2 Content 9.1 (0.0-44) 08/02/20 11:25 POC ABG Base Excess 0.4 07/18/20 04:24 ABG Base Excess -4.5 mmol/L (-2.0-3.0) L 08/02/20 11:25 ABG Hemoglobin 6.6 gm/dl (12.0-16.0) L 08/02/20 11:25 ABG Carboxyhemoglobin 1.8 % (0.0-5.0) 08/02/20 11:25 ABG Methemoglobin 0.2 % (0.0-1.5) 08/02/20 11:25 VBG pH 7.152 (7.320-7.420) L* 05/28/20 13:47 ABG Sodium 131.6 mmol/L (136.0-145.0) L 07/18/20 04:24 ABG Potassium 4.9 mmol/L (3.40-4.50) H 07/18/20 04:24 ABG Chloride 104.0 mmol/L (98-107) 07/18/20 04:24 ABG Glucose 131 mg/dL (65-95) H 07/18/20 04:24 Carboxyhemoglobin 0.5 (0.5-1.5) 06/23/20 12:34 Oxyhemoglobin 95.5 % (95.0-99.0) 08/02/20 11:25 FiO2 30 % 08/02/20 11:25 Sodium 132 mmol/L (137-145) L 08/14/20 04:50 Potassium 4.2 mmol/L (3.6-5.0) 08/14/20 04:50 Chloride 93.2 mmol/L (98-107) L 08/14/20 04:50 Carbon Dioxide 29 mmol/L (22-30) 08/14/20 04:50 Anion Gap 14 mmol/L 08/14/20 04:50 BUN 58 mg/dL (7-17) H 08/14/20 04:50 Creatinine 2.6 mg/dL (0.6-1.2) H 08/14/20 04:50 Estimated GFR 19 ml/min 08/14/20 04:50 BUN/Creatinine Ratio 22 % 08/14/20 04:50 Glucose 106 mg/dL (65-100) H 08/14/20 04:50 POC Glucose 109 mg/dL (70-105) H 08/16/20 06:43 Lactic Acid 0.40 mmol/L (0.7-2.0) L 08/03/20 04:38 Calcium 8.0 mg/dL (8.4-10.2) L 08/14/20 04:50 Ferritin 223.6 ng/mL (10.0-200.0) H 06/29/20 14:45 Magnesium 2.70 mg/dL (1.7-2.3) H 07/28/20 04:30 Lactate Dehydrogenase 367 units/L (91-180) H 06/29/20 14:45 Total Bilirubin 0.20 mg/dL (0.1-1.2) 08/05/20 05:35 AST 53 units/L (5-40) H 08/05/20 05:35 ALT 44 units/L (7-56) 08/05/20 05:35 Alkaline Phosphatase 501 units/L (35-129) H 08/05/20 05:35 C-Reactive Protein 3.60 mg/dL (0.00-1.30) H 06/29/20 14:45 Total Creatine Kinase 300 units/L (30-135) H 07/01/20 06:01 CK-MB (CK-2) 2.0 ng/mL (0.0-4.0) 07/01/20 06:01 CK-MB (CK-2) Rel Index 0.6 (0-4) 07/01/20 06:01 Troponin T 0.067 ng/mL (0.00-0.029) H 07/01/20 06:01 Total Protein 6.1 g/dL (6.3-8.2) L 08/05/20 05:35 Albumin 2.2 g/dL (3.9-5) L 08/05/20 05:35 Albumin/Globulin Ratio 0.6 % 08/05/20 05:35 Triglycerides 142 mg/dL (2-149) 07/01/20 06:01 Cholesterol 137 mg/dL (50-199) 07/01/20 06:01 LDL Cholesterol Direct 62 mg/dL (50-130) 07/01/20 06:01 HDL Cholesterol 61 mg/dL (40-59) H 07/01/20 06:01 Cholesterol/HDL Ratio 2.24 % 07/01/20 06:01 Procalcitonin 0.18 ng/mL (<0.15) 07/14/20 04:55 Arterial Blood Glucose 131 mg/dL (65-95) H 07/18/20 04:24 Arterial Blood Ionized Calcium 5.1 mg/dL (4.6-5.3) 07/18/20 04:24 Urine Color Yellow (Yellow) 06/06/20 04:00 Urine Turbidity Cloudy (Clear) 06/06/20 04:00 Urine pH 5.0 (5.0-7.0) 06/06/20 04:00 Ur Specific [place] 1.012 (1.003-1.030) 06/06/20 04:00 Urine Protein 100 mg/dl mg/dL (Negative) 06/06/20 04:00 Urine Glucose (UA) 50 mg/dL (Negative) 06/06/20 04:00 Urine Ketones Neg mg/dL (Negative) 06/06/20 04:00 Urine Blood Sm (Negative) 06/06/20 04:00 Urine Nitrite Neg (Negative) 06/06/20 04:00 Urine Bilirubin Neg (Negative) 06/06/20 04:00 Urine Urobilinogen < 2.0 mg/dL (<2.0) 06/06/20 04:00 Ur Leukocyte Esterase Neg (Negative) 06/06/20 04:00 Urine WBC (Auto) 15.0 /HPF (0.0-6.0) H 06/06/20 04:00 Urine RBC (Auto) 23.0 /HPF (0.0-6.0) 06/06/20 04:00 U Epithel Cells (Auto) 8.0 /HPF (0-13.0) 06/06/20 04:00 Urine Bacteria (Auto) 2+ /HPF (Negative) 06/06/20 04:00 Amorphous Crystals 1+ 06/06/20 04:00 Hyaline Casts 16 /LPF 06/06/20 04:00 Urine Mucus 2+ /HPF 06/06/20 04:00 Urine Yeast (Budding) 2+ /HPF 06/03/20 Unknown Urine Creatinine 33.3 mg/dL (0.1-20.0) H 07/06/20 13:20 Urine Sodium 21 mmol/L 07/06/20 13:20 Urine Total Protein 196 mg/dL (5-11.8) H 06/06/20 04:00 Nasal Screen MRSA (PCR) Negative (Negative) 06/29/20 08:30 Phenytoin 4.7 ug/mL (10.0-20.0) L 08/08/20 15:00 Coronavirus (PCR) Negative (Negative) 08/09/20 09:50 Hepatitis A IgM Ab Non-reactive (NonReactive) 07/29/20 13:01 Hep Bs Antigen Non-reactive (Negative) 07/29/20 13:01 Hep B Core IgM Ab Non-reactive (NonReactive) 07/29/20 13:01 Hepatitis C Antibody Non-reactive (NonReactive) 07/29/20 13:01 Blood Type A POSITIVE 08/05/20 09:15 Antibody Screen Negative 08/05/20 09:15 Crossmatch See Detail 08/05/20 09:15 - Diagnostic Impressions Diagnostic Impressions: Echocardiogram Limited Views 05/29/20 13:52 Transthoracic Echocardiogram Indication: Pulm Embolus BP: 169/76 HR: 85 Conclusions *Limited study for RV size post cardiopulmonar arrest. *RV is only slightly dilated, no significant difference from prior echo 05/13/2020. *Global left ventricular systolic function is at the lower limits of normal. *The estimated ejection fraction is 45-50%. *Mild to moderate concentric left ventricular hypertrophy is observed. *The left and right atria are both mild to moderately dilated. Findings Left Ventricle: The left ventricular chamber size is mildly dilated. Mild to moderate concentric left ventricular hypertrophy is observed. Global left ventricular systolic function is at the lower limits of normal. The estimated ejection fraction is 45-50%. Left Atrium: The left atrium is mild to moderately dilated. Right Ventricle: The right ventricle is slightly dilated. Right Atrium: The right atrium is mild to moderately dilated. Aortic Valve: The aortic valve leaflets are moderately thickened. Mitral Valve: There is mitral annular calcification. The mitral valve leaflets are moderately thickened. Tricuspid Valve: The tricuspid valve leaflets are mildly thickened. Pericardium: A trivial pericardial effusion is visualized. NDUM: 05/29/20 1808 Amended Report Transthoracic Echocardiogram Indication: Pulm Embolus BP: 169/76 HR: 85 Conclusions *Limited study for RV size post cardiopulmonary arrest. *RV is only slightly dilated, no significant difference from prior echo 05/13/2020. *Global left ventricular systolic function is at the lower limits of normal. *The estimated ejection fraction is 45-50%. *Mild to moderate concentric left ventricular hypertrophy is observed. *The left and right atria are both mild to moderately dilated. Findings Left Ventricle: The left ventricular chamber size is mildly dilated. Mild to moderate concentric left ventricular hypertrophy is observed. Global left ventricular systolic function is at the lower limits of normal. The estimated ejection fraction is 45-50%. Left Atrium: The left atrium is mild to moderately dilated. Right Ventricle: The right ventricle is slightly dilated. Right Atrium: The right atrium is mild to moderately dilated. Aortic Valve: The aortic valve leaflets are moderately thickened. Mitral Valve: There is mitral annular calcification. The mitral valve leaflets are moderately thickened. Tricuspid Valve: The tricuspid valve leaflets are mildly thickened. Pericardium: A trivial pericardial effusion is visualized. Helm/IV: Voiding Method Indwelling Catheter IV Catheter Type [Right VAS Cath Femoral] IV Catheter Type [Left Forearm INT / Saline Lock ] IV Catheter Type [Left Wrist] Peripheral IV IV Catheter Type [Left Upper Peripheral IV arm] IV Catheter Type [Right CVL Internal Jugular] IV Catheter Type [Right Hand] INT / Saline Lock IV Catheter Type [Right Wrist] Not found on patient IV Catheter Type [Left Hand] INT / Saline Lock IV Catheter Type [Left INT / Saline Lock Antecubital] IV Catheter Type [Right Peripheral IV Forearm] IV Catheter Type [Left Leg] Intra-osseous Active Medications - Current Medications Current Medications: Generic Name Dose Route Start Last Admin Trade Name Freq PRN Reason Stop Dose Admin Acetaminophen 650 mg 06/09/20 10:57 06/29/20 21:18 Tylenol FEEDTUBE 650 mg Q6H PRN Administration Fever >101 Amlodipine Besylate 10 mg 06/02/20 11:00 08/16/20 09:03 Amlodipine PO 10 mg DAILY NELSON Administration Lipase/Protease/Amylase 1 each 05/29/20 13:39 08/10/20 22:45 Pancreaze 10,500 Unit FEEDTUBE 1 each PRN PRN Administration For Clogged Feeding Tube Epoetin Javon 10,000 unit 07/29/20 11:29 08/10/20 12:08 Procrit IV 10,000 unit SCOTTY PRN Administration hemodialysis Glycopyrrolate 2 mg 06/09/20 14:00 08/16/20 14:11 Glycopyrrolate PO 2 mg TID NELSON Administration Heparin Sodium (Porcine) 5,000 unit 06/30/20 14:00 08/16/20 14:11 Heparin SUB-Q 5,000 unit Q8HR NELSON Administration Heparin Sodium (Porcine) 5,000 unit 07/29/20 11:29 08/02/20 23:15 Heparin IV 5,000 unit SCOTTY PRN Administration hemodialysis Hydralazine HCl 100 mg 07/14/20 14:00 08/16/20 14:11 Apresoline PO Not Given TID [facility] Hydrophilic Ointment 1 applic 05/28/20 13:49 Vaseline Lip Therapy TP Q2HR PRN Dry Lips Norepinephrine 4 mg in 250 mls @ 7.5 mls/hr 07/23/20 20:00 08/05/20 05:21 Levophed Drip 4 Mg/Ns 250 Ml IV 0 mcg/min TITR NELSON 0 mls/hr Titration Protocol 2 MCG/MIN Phenytoin 150 mg/ Sodium 103 mls @ 408 mls/hr 08/03/20 09:00 08/16/20 14:19 Chloride IV 408 mls/hr Q8HR NELSON Administration Sodium Chloride 100 mls @ 999 mls/hr 08/04/20 22:27 Nacl 0.9% IV SCOTTY PRN Hypotension Insulin Glargine 10 units 06/08/20 22:00 08/15/20 21:21 Lantus SUB-Q 10 units QHS NELSON Administration Insulin Human Lispro 0 unit 05/29/20 18:00 08/16/20 12:13 Humalog SUB-Q Not Given Q6H [facility] Protocol Labetalol HCl 20 mg 06/03/20 09:00 07/31/20 12:14 Labetalol IV 20 mg Q4H PRN Administration HYPERTENSION Lansoprazole 30 mg 08/08/20 10:00 08/16/20 09:03 Prevacid Solutab FEEDTUBE 30 mg QDAY NELSON Administration Levetiracetam 1,000 mg 08/08/20 22:00 08/16/20 09:02 Keppra PO 1,000 mg BID NELSON Administration Minoxidil 5 mg 07/21/20 10:00 08/16/20 09:03 Loniten PO 5 mg BID NELSON Administration Multi-Ingred Cream/Lotion/Oil/Oint 1 applic 05/28/20 13:49 Artificial Tears Ophth Oint OU Q4HR PRN Dry Eye(s) Ondansetron HCl 4 mg 06/02/20 09:00 06/09/20 16:48 Zofran IV 4 mg Q8H PRN Administration Nausea And Vomiting Senna 17.6 mg 06/03/20 10:00 08/16/20 09:04 Senokot FEEDTUBE 17.6 mg BID NELSON Administration Simple Syrup 15 ml 05/29/20 13:39 Simple Syrup FEEDTUBE PRN PRN Hypoglycemia Simple Syrup 30 ml 05/29/20 13:39 Simple Syrup FEEDTUBE PRN PRN Hypoglycemia Sodium Bicarbonate 325 mg 05/29/20 13:39 07/07/20 10:36 Sodium Bicarbonate FEEDTUBE 325 mg PRN PRN Administration For Clogged Feeding Tube Sodium Chloride 10 ml 05/28/20 22:00 08/16/20 09:04 Sodium Chloride Flush Syringe 10 Ml IV 10 ml BID NELSON Administration Sodium Chloride 10 ml 05/28/20 19:08 08/11/20 12:42 Sodium Chloride Flush Syringe 10 Ml IV 10 ml PRN PRN Administration LINE FLUSH Torsemide 100 mg 08/13/20 06:00 08/16/20 06:05 Demadex PO 100 mg DAILY@0600 NELSON Administration Nutrition/Malnutrition Assess - Dietary Evaluation Nutrition/Malnutrition Findings: Nutrition Notes Start: 05/29/20 11:45 Freq: Status: Active Protocol: Document 08/11/20 12:18 KYLIE (Rec: 08/11/20 12:23 KYLIE [id number]) Co-Sign 08/11/20 12:18 MK Nutrition Notes Initial or Follow up Reassessment Current Diagnosis Acute Kidney Injury,Diabetes, Heart Failure,Respiratory Failure Other Pertinent Diagnosis COVID-19 (+), Pulmonary edema, dysphagia Current Diet Nepro at 40 ml/hr Labs/Tests Na 135 BUN 48 Cr 2.2 BG 53 POC 72 Pertinent Medications Dextrose 75g Lasix Height 5 ft 6 in Weight 123 kg [place] Body Weight (kg) 59.09 BMI 43.7 Weight Status Morbidly Obese Subjective/Other Information F/u TF, fluid, Na. Pt remains fluid overloaded. Hospice care possibility. Percent of energy/protein needs met: 100%/100% (Protein based on minimum 1.2g /kg IBW for dialysis) Burn Absent Trauma Absent GI Symptoms None Current % PO Negligible Minimum of two criteria No Fluid Accumulation Mild (non-severe) #1 Nutrition Diagnosis Inadequate oral intake Diagnosis Progress(for reassessment Continues documentation) Is patient on ventilator? Yes Is Patient Ambulatory and/or Out of Bed No REE-([facility]-confined to bed) 2172.576 Kcal/Kg value to use for calculation 13 Approximate Energy Requirements Using 1599 kcal/Kg Calculation Used for Recommendations Kcal/kg Additional Notes Protein needs up to 148g (up to 2.5g/kg IBW) with minimum of 71g (>1.2g/kg of IBW for dialysis) Fluid needs 1ml/kcal or per MD orders Nutrition Intervention Change Diet Order: Continue Nutrition Support: Nepro at 40 ml/hr Flush 50ml q4h Kcal 1,728 Protein (gm) 78 Fluid (mL) 697 Goal #1 Meet at least 75% of energy and protein needs by TF. Anticipated Discharge Needs: Unable to determine at this time Follow-Up By: 08/18/20 Additional Comments F/u TF and POC
[2020-08-16] MEDS: INSULIN GLARGINE 100 UNITS/ML SUB-Q SCH (21:49)
[2020-08-17] MEDS: HEPARIN 5,000 UNIT/1 ML VIAL SUB-Q SCH ×3 (06:41→23:30)
[2020-08-17] MEDS: INSULIN LISPRO 100 UNIT/ML VIAL 3 mL SUB-Q SCH ×4 (06:41→20:50)
--- NOTE | 2020-08-17 08:39 | Progress Note ---
Assessment and Plan Assessment and plan: 05/28/2020 COVID-19 test positive 06/29/2020 COVID-19 test positive 07/14/2020 COVID-19 test positive 08/09/2020 COVID-19 test negative Clinically no change , patient is DNR status Awaiting DC home with hospice[pending family decision] --s/p cardiopulmonary arrest on admission, 06/26 and 07/01, EF 45-50% on 2d echo, medical Mx per cardiology --Bradycardia: Patient is on dopamine and epinephrine for bradycardia beta-hugh discontinued, Heart rate is in the 60s to 70s --Anoxic brain injury, neurology consulted, neuro requested MRI brain, EEG MRI brain could not be done due to body habitus, --Acute hypoxemic respiratory failure; vent dependent intubated on admission, extubated on 06/12/20 then placed on high flow o2 patient developed another respiratory arrest on 06/26 - reintubated Patient not tolerating weaning parameters CC following, Surgery evaluated the patient for trach and PEG COVID-19 test positive x3, trach and PEG pending -- Hypertension; well controlled Continue amlodipine, clonidine and hydralazine and minoxidil, closely monitor blood pressures, PRN labetalol --Seizures seizure precautions; continue Keppra, and Dilantin EEG showed epileptiform discharges per review of neurology note --Rectal bleeding; resolved --Acute blood loss anemia; total 4 units PRBC transfused monitor H&H, GI following, no plans of endoscopy --Severe sepsis; completed antibiotics per ID persistently positive for COVID-19 and treated for Klebsiella pneumoniae --COVID-19 b/l PNA Completed remdesivir on 06/02 Completed dexamethasone - Last dose 06/07 COVID 19 test positive x 3 during this admission --Superficial left cephalic vein DVT/elevated D-dimers[COVID 19] Patient initially started on heparin drip from 05/29/20 D-dimers improved [phone] treated with Eliquis 5 mg twice a day for 1 week[per ID] stop date 06/26/2020 -- Acute toxic metabolic encephalopathy, POA likely from sepsis and s/p cardiac arrest with possible anoxic injury -- Acute renal failure: Management per nephrology Initiated HD. HD as needed --Klebsiella pneumonia: s/p 5 days of cefepime on 07/04/2020 --Acute on chronic systolic heart failure Cardiology following. Ef 45% --Transaminitis. Resolved etiology likely from COVID-19 --Hyperkalemia; improved --Hyponatremia Monitor electrolytes, now on HD --Shock; resolved -- DVT prophylaxis Eliquis, SCD to bilateral lower extremities while in bed -- Advance care planning Patient is critically ill with multiple medical problems Poor prognosis. --DNR status; The high probability of a clinically significant, sudden or life threatening deterioration of the [HOUSEKEEPING AIDE, CVS, renal] system(s) required my full and direct attention, intervention and personal management. The aggregate critical care time was [32] minutes. This time is in addition to time spent performing reported procedures but includes the following: [x] Data Review and interpretation [x] Patient assessment and monitoring of vital signs [x] Documentation [x] Medication orders and management 08/13/20; patient is DNR status now, family considering home with home hospice, initially Home hospice evaluated the patient However family did not make the decision, awaiting DC home with home hospice pending family's decision 08/15/20; patient is awaiting discharge home with home hospice, pending family's decision, family unable to be reached Continue current management, very poor prognosis, anoxic brain injury 08/16/2020; patient DNR status,awaiting DC home with home hospice, pending decision from family 08/17/2020; awaiting family's decision for discharge with home hospice History Interval history: I have seen and examined the patient at the bedside Isolation cautions and PPE protocols strictly followed Patient remains intubated on ventilatory support Unable to wean, Vital signs noted Patient DNR status Awaiting hospice placement Hospitalist Physical - Constitutional Vitals: Temp Pulse Resp BP Pulse Ox 100.1 F H 80 18 137/50 98 08/17/20 04:00 08/17/20 06:01 08/17/20 06:01 08/17/20 06:01 08/17/20 06:01 General appearance: Present: no acute distress, well-nourished, obese (Morbidly obese), other (Intubated on ventilatory support) - EENT Eyes: Present: PERRL, EOM intact - Neck Neck: Present: supple, normal ROM - Respiratory Respiratory effort: normal Respiratory: bilateral: diminished, negative: rales, rhonchi, wheezing - Cardiovascular Rhythm: regular Heart Sounds: Present: S1 & S2 - Extremities Extremities: no ischemia, No edema - Abdominal General gastrointestinal: soft, non-tender, non-distended, normal bowel sounds - Integumentary Integumentary: Present: clear, warm - Psychiatric Psychiatric: appropriate mood/affect, cooperative - Neurologic Neurologic: CNII-XII intact, moves all extremities HEART Score - HEART Score Troponin: Troponin T 0.067 ng/mL (0.00-0.029) H 07/01/20 06:01 Results - Labs CBC & Chem 7: 08/11/20 03:55 08/14/20 04:50 Labs: Laboratory Last Values WBC 7.2 K/mm3 (4.5-11.0) 08/11/20 03:55 RBC 2.22 M/mm3 (3.65-5.03) L 08/11/20 03:55 Hgb 6.9 gm/dl (10.1-14.3) L 08/11/20 03:55 Hct 20.1 % (30.3-42.9) L 08/11/20 03:55 MCV 90 fl (79-97) 08/11/20 03:55 MCH 31 pg (28-32) 08/11/20 03:55 MCHC 34 % (30-34) 08/11/20 03:55 RDW 18.3 % (13.2-15.2) H 08/11/20 03:55 Plt Count 300 K/mm3 (140-440) 08/11/20 03:55 Lymph % (Auto) 11.2 % (13.4-35.0) L 08/11/20 03:55 Mellette % (Auto) 8.8 % (0.0-7.3) H 08/11/20 03:55 Eos % (Auto) 3.0 % (0.0-4.3) 08/11/20 03:55 Baso % (Auto) 0.7 % (0.0-1.8) 08/11/20 03:55 Lymph # (Auto) 0.8 K/mm3 (1.2-5.4) L 08/11/20 03:55 Mellette # (Auto) 0.6 K/mm3 (0.0-0.8) 08/11/20 03:55 Eos # (Auto) 0.2 K/mm3 (0.0-0.4) 08/11/20 03:55 Baso # (Auto) 0.1 K/mm3 (0.0-0.1) 08/11/20 03:55 Add Manual Diff Complete 07/29/20 13:01 Total Counted 100 07/29/20 13:01 Seg Neutrophils % 76.3 % (40.0-70.0) H 08/11/20 03:55 Seg Neuts % (Manual) 86.0 % (40.0-70.0) H 07/29/20 13:01 Band Neutrophils % 0 % 07/29/20 13:01 Lymphocytes % (Manual) 6.0 % (13.4-35.0) L 07/29/20 13:01 Reactive Lymphs % (Man) 0 % 07/29/20 13:01 Monocytes % (Manual) 8.0 % (0.0-7.3) H 07/29/20 13:01 Eosinophils % (Manual) 0 % (0.0-4.3) 07/29/20 13:01 Basophils % (Manual) 0 % (0.0-1.8) 07/29/20 13:01 Metamyelocytes % 0 % 07/29/20 13:01 Myelocytes % 0 % 07/29/20 13:01 Promyelocytes % 0 % 07/29/20 13:01 Blast Cells % 0 % 07/29/20 13:01 Nucleated RBC % Not Reportable 07/29/20 13:01 Seg Neutrophils # 5.5 K/mm3 (1.8-7.7) 08/11/20 03:55 Seg Neutrophils # Man 8.9 K/mm3 (1.8-7.7) H 07/29/20 13:01 Band Neutrophils # 0.0 K/mm3 07/29/20 13:01 Lymphocytes # (Manual) 0.6 K/mm3 (1.2-5.4) L 07/29/20 13:01 Abs React Lymphs (Man) 0.0 K/mm3 07/29/20 13:01 Monocytes # (Manual) 0.8 K/mm3 (0.0-0.8) 07/29/20 13:01 Eosinophils # (Manual) 0.0 K/mm3 (0.0-0.4) 07/29/20 13:01 Basophils # (Manual) 0.0 K/mm3 (0.0-0.1) 07/29/20 13:01 Metamyelocytes # 0.0 K/mm3 07/29/20 13:01 Myelocytes # 0.0 K/mm3 07/29/20 13:01 Promyelocytes # 0.0 K/mm3 07/29/20 13:01 Blast Cells # 0.0 K/mm3 07/29/20 13:01 WBC Morphology Not Reportable 07/29/20 13:01 Hypersegmented Neuts Not Reportable 07/29/20 13:01 Hyposegmented Neuts Not Reportable 07/29/20 13:01 Hypogranular Neuts Not Reportable 07/29/20 13:01 Smudge Cells Not Reportable 07/29/20 13:01 Toxic Granulation Not Reportable 07/29/20 13:01 Toxic Vacuolation Not Reportable 07/29/20 13:01 Dohle Bodies Not Reportable 07/29/20 13:01 Pelger-Huet Anomaly Not Reportable 07/29/20 13:01 Sanjuanita Rods Not Reportable 07/29/20 13:01 Platelet Estimate Consistent w auto 07/29/20 13:01 Clumped Platelets Not Reportable 07/29/20 13:01 Plt Clumps, EDTA Not Reportable 07/29/20 13:01 Large Platelets Not Reportable 07/29/20 13:01 Giant Platelets Not Reportable 07/29/20 13:01 Platelet Satelliting Not Reportable 07/29/20 13:01 Plt Morphology Comment Not Reportable 07/29/20 13:01 RBC Morphology Normal 07/29/20 13:01 Dimorphic RBCs Not Reportable 07/29/20 13:01 Polychromasia Not Reportable 07/29/20 13:01 Hypochromasia Not Reportable 07/29/20 13:01 Poikilocytosis Not Reportable 07/29/20 13:01 Anisocytosis Not Reportable 07/29/20 13:01 Microcytosis Not Reportable 07/29/20 13:01 Macrocytosis Not Reportable 07/29/20 13:01 Spherocytes Not Reportable 07/29/20 13:01 Pappenheimer Bodies Not Reportable 07/29/20 13:01 Sickle Cells Not Reportable 07/29/20 13:01 Target Cells Not Reportable 07/29/20 13:01 Tear Drop Cells Not Reportable 07/29/20 13:01 Ovalocytes Not Reportable 07/29/20 13:01 Helmet Cells Not Reportable 07/29/20 13:01 Jones-Romeo Bodies Not Reportable 07/29/20 13:01 Ponce Rings Not Reportable 07/29/20 13:01 Julia Cells Not Reportable 07/29/20 13:01 Bite Cells Not Reportable 07/29/20 13:01 Crenated Cell Not Reportable 07/29/20 13:01 Elliptocytes Not Reportable 07/29/20 13:01 Acanthocytes (Spur) Not Reportable 07/29/20 13:01 Rouleaux Not Reportable 07/29/20 13:01 Hemoglobin C Crystals Not Reportable 07/29/20 13:01 Schistocytes Not Reportable 07/29/20 13:01 Malaria parasites Not Reportable 07/29/20 13:01 Kev Bodies Not Reportable 07/29/20 13:01 Hem Pathologist Commnt No 07/29/20 13:01 PT 14.2 Sec. (12.2-14.9) 05/29/20 15:10 INR 1.08 (0.87-1.13) 05/29/20 15:10 APTT 27.2 Sec. (24.2-36.6) 05/29/20 15:10 D-Dimer 2310.15 ng/mlDDU (0-234) H 06/29/20 14:45 Heparin Anti-Xa Level 0.34 U.I./ml (0.3-0.7) 06/19/20 10:46 ABG pH 7.344 pH Units (7.350-7.450) L 08/02/20 11:25 POC ABG pCO2 44.1 mmHg (32.0-48.0) 07/18/20 04:24 ABG pCO2 39.0 mm Hg 08/02/20 11:25 ABG Oxyhemoglobin 92.6 (94-98) L 06/23/20 12:34 POC ABG pO2 86.8 mmHg (83-108) 07/18/20 04:24 ABG pO2 101.1 mm Hg (80.0-90.0) H 08/02/20 11:25 POC ABG HCO3 25.6 07/18/20 04:24 ABG HCO3 20.8 mmol/L (20.0-26.0) 08/02/20 11:25 ABG O2 Saturation 97.5 % (95.0-99.0) 08/02/20 11:25 ABG O2 Content 9.1 (0.0-44) 08/02/20 11:25 POC ABG Base Excess 0.4 07/18/20 04:24 ABG Base Excess -4.5 mmol/L (-2.0-3.0) L 08/02/20 11:25 ABG Hemoglobin 6.6 gm/dl (12.0-16.0) L 08/02/20 11:25 ABG Carboxyhemoglobin 1.8 % (0.0-5.0) 08/02/20 11:25 ABG Methemoglobin 0.2 % (0.0-1.5) 08/02/20 11:25 VBG pH 7.152 (7.320-7.420) L* 05/28/20 13:47 ABG Sodium 131.6 mmol/L (136.0-145.0) L 07/18/20 04:24 ABG Potassium 4.9 mmol/L (3.40-4.50) H 07/18/20 04:24 ABG Chloride 104.0 mmol/L (98-107) 07/18/20 04:24 ABG Glucose 131 mg/dL (65-95) H 07/18/20 04:24 Carboxyhemoglobin 0.5 (0.5-1.5) 06/23/20 12:34 Oxyhemoglobin 95.5 % (95.0-99.0) 08/02/20 11:25 FiO2 30 % 08/02/20 11:25 Sodium 132 mmol/L (137-145) L 08/14/20 04:50 Potassium 4.2 mmol/L (3.6-5.0) 08/14/20 04:50 Chloride 93.2 mmol/L (98-107) L 08/14/20 04:50 Carbon Dioxide 29 mmol/L (22-30) 08/14/20 04:50 Anion Gap 14 mmol/L 08/14/20 04:50 BUN 58 mg/dL (7-17) H 08/14/20 04:50 Creatinine 2.6 mg/dL (0.6-1.2) H 08/14/20 04:50 Estimated GFR 19 ml/min 08/14/20 04:50 BUN/Creatinine Ratio 22 % 08/14/20 04:50 Glucose 106 mg/dL (65-100) H 08/14/20 04:50 POC Glucose 129 mg/dL (70-105) H 08/17/20 06:23 Lactic Acid 0.40 mmol/L (0.7-2.0) L 08/03/20 04:38 Calcium 8.0 mg/dL (8.4-10.2) L 08/14/20 04:50 Ferritin 223.6 ng/mL (10.0-200.0) H 06/29/20 14:45 Magnesium 2.70 mg/dL (1.7-2.3) H 07/28/20 04:30 Lactate Dehydrogenase 367 units/L (91-180) H 06/29/20 14:45 Total Bilirubin 0.20 mg/dL (0.1-1.2) 08/05/20 05:35 AST 53 units/L (5-40) H 08/05/20 05:35 ALT 44 units/L (7-56) 08/05/20 05:35 Alkaline Phosphatase 501 units/L (35-129) H 08/05/20 05:35 C-Reactive Protein 3.60 mg/dL (0.00-1.30) H 06/29/20 14:45 Total Creatine Kinase 300 units/L (30-135) H 07/01/20 06:01 CK-MB (CK-2) 2.0 ng/mL (0.0-4.0) 07/01/20 06:01 CK-MB (CK-2) Rel Index 0.6 (0-4) 07/01/20 06:01 Troponin T 0.067 ng/mL (0.00-0.029) H 07/01/20 06:01 Total Protein 6.1 g/dL (6.3-8.2) L 08/05/20 05:35 Albumin 2.2 g/dL (3.9-5) L 08/05/20 05:35 Albumin/Globulin Ratio 0.6 % 08/05/20 05:35 Triglycerides 142 mg/dL (2-149) 07/01/20 06:01 Cholesterol 137 mg/dL (50-199) 07/01/20 06:01 LDL Cholesterol Direct 62 mg/dL (50-130) 07/01/20 06:01 HDL Cholesterol 61 mg/dL (40-59) H 07/01/20 06:01 Cholesterol/HDL Ratio 2.24 % 07/01/20 06:01 Procalcitonin 0.18 ng/mL (<0.15) 07/14/20 04:55 Arterial Blood Glucose 131 mg/dL (65-95) H 07/18/20 04:24 Arterial Blood Ionized Calcium 5.1 mg/dL (4.6-5.3) 07/18/20 04:24 Urine Color Yellow (Yellow) 06/06/20 04:00 Urine Turbidity Cloudy (Clear) 06/06/20 04:00 Urine pH 5.0 (5.0-7.0) 06/06/20 04:00 Ur Specific Festus 1.012 (1.003-1.030) 06/06/20 04:00 Urine Protein 100 mg/dl mg/dL (Negative) 06/06/20 04:00 Urine Glucose (UA) 50 mg/dL (Negative) 06/06/20 04:00 Urine Ketones Neg mg/dL (Negative) 06/06/20 04:00 Urine Blood Sm (Negative) 06/06/20 04:00 Urine Nitrite Neg (Negative) 06/06/20 04:00 Urine Bilirubin Neg (Negative) 06/06/20 04:00 Urine Urobilinogen < 2.0 mg/dL (<2.0) 06/06/20 04:00 Ur Leukocyte Esterase Neg (Negative) 06/06/20 04:00 Urine WBC (Auto) 15.0 /HPF (0.0-6.0) H 06/06/20 04:00 Urine RBC (Auto) 23.0 /HPF (0.0-6.0) 06/06/20 04:00 U Epithel Cells (Auto) 8.0 /HPF (0-13.0) 06/06/20 04:00 Urine Bacteria (Auto) 2+ /HPF (Negative) 06/06/20 04:00 Amorphous Crystals 1+ 06/06/20 04:00 Hyaline Casts 16 /LPF 06/06/20 04:00 Urine Mucus 2+ /HPF 06/06/20 04:00 Urine Yeast (Budding) 2+ /HPF 06/03/20 Unknown Urine Creatinine 33.3 mg/dL (0.1-20.0) H 07/06/20 13:20 Urine Sodium 21 mmol/L 07/06/20 13:20 Urine Total Protein 196 mg/dL (5-11.8) H 06/06/20 04:00 Nasal Screen MRSA (PCR) Negative (Negative) 06/29/20 08:30 Phenytoin 4.7 ug/mL (10.0-20.0) L 08/08/20 15:00 Coronavirus (PCR) Negative (Negative) 08/09/20 09:50 Hepatitis A IgM Ab Non-reactive (NonReactive) 07/29/20 13:01 Hep Bs Antigen Non-reactive (Negative) 07/29/20 13:01 Hep B Core IgM Ab Non-reactive (NonReactive) 07/29/20 13:01 Hepatitis C Antibody Non-reactive (NonReactive) 07/29/20 13:01 Blood Type A POSITIVE 08/05/20 09:15 Antibody Screen Negative 08/05/20 09:15 Crossmatch See Detail 08/05/20 09:15 - Diagnostic Impressions Diagnostic Impressions: Echocardiogram Limited Views 05/29/20 13:52 Transthoracic Echocardiogram Indication: Pulm Embolus BP: 169/76 HR: 85 Conclusions *Limited study for RV size post cardiopulmonar arrest. *RV is only slightly dilated, no significant difference from prior echo 05/13/2020. *Global left ventricular systolic function is at the lower limits of normal. *The estimated ejection fraction is 45-50%. *Mild to moderate concentric left ventricular hypertrophy is observed. *The left and right atria are both mild to moderately dilated. Findings Left Ventricle: The left ventricular chamber size is mildly dilated. Mild to moderate concentric left ventricular hypertrophy is observed. Global left ventricular systolic function is at the lower limits of normal. The estimated ejection fraction is 45-50%. Left Atrium: The left atrium is mild to moderately dilated. Right Ventricle: The right ventricle is slightly dilated. Right Atrium: The right atrium is mild to moderately dilated. Aortic Valve: The aortic valve leaflets are moderately thickened. Mitral Valve: There is mitral annular calcification. The mitral valve leaflets are moderately thickened. Tricuspid Valve: The tricuspid valve leaflets are mildly thickened. Pericardium: A trivial pericardial effusion is visualized. NDUM: 05/29/20 1808 Amended Report Transthoracic Echocardiogram Indication: Pulm Embolus BP: 169/76 HR: 85 Conclusions *Limited study for RV size post cardiopulmonary arrest. *RV is only slightly dilated, no significant difference from prior echo 05/13/2020. *Global left ventricular systolic function is at the lower limits of normal. *The estimated ejection fraction is 45-50%. *Mild to moderate concentric left ventricular hypertrophy is observed. *The left and right atria are both mild to moderately dilated. Findings Left Ventricle: The left ventricular chamber size is mildly dilated. Mild to moderate concentric left ventricular hypertrophy is observed. Global left ventricular systolic function is at the lower limits of normal. The estimated ejection fraction is 45-50%. Left Atrium: The left atrium is mild to moderately dilated. Right Ventricle: The right ventricle is slightly dilated. Right Atrium: The right atrium is mild to moderately dilated. Aortic Valve: The aortic valve leaflets are moderately thickened. Mitral Valve: There is mitral annular calcification. The mitral valve leaflets are moderately thickened. Tricuspid Valve: The tricuspid valve leaflets are mildly thickened. Pericardium: A trivial pericardial effusion is visualized. Helm/IV: Voiding Method Indwelling Catheter IV Catheter Type [Right VAS Cath Femoral] IV Catheter Type [Left Forearm INT / Saline Lock ] IV Catheter Type [Left Wrist] Peripheral IV IV Catheter Type [Left Upper Peripheral IV arm] IV Catheter Type [Right CVL Internal Jugular] IV Catheter Type [Right Hand] INT / Saline Lock IV Catheter Type [Right Wrist] Not found on patient IV Catheter Type [Left Hand] INT / Saline Lock IV Catheter Type [Left INT / Saline Lock Antecubital] IV Catheter Type [Right Peripheral IV Forearm] IV Catheter Type [Left Leg] Intra-osseous Active Medications - Current Medications Current Medications: Generic Name Dose Route Start Last Admin Trade Name Freq PRN Reason Stop Dose Admin Acetaminophen 650 mg 06/09/20 10:57 06/29/20 21:18 Tylenol FEEDTUBE 650 mg Q6H PRN Administration Fever >101 Amlodipine Besylate 10 mg 06/02/20 11:00 08/16/20 09:03 Amlodipine PO 10 mg DAILY NELSON Administration Lipase/Protease/Amylase 1 each 05/29/20 13:39 08/10/20 22:[address] 10,500 Unit FEEDTUBE 1 each PRN PRN Administration For Clogged Feeding Tube Epoetin Javon 10,000 unit 07/29/20 11:29 08/10/20 12:08 Procrit IV 10,000 unit SCOTTY PRN Administration hemodialysis Glycopyrrolate 2 mg 06/09/20 14:00 08/16/20 21:57 Glycopyrrolate PO 2 mg TID NELSON Administration Heparin Sodium (Porcine) 5,000 unit 06/30/20 14:00 08/17/20 06:41 Heparin SUB-Q 5,000 unit Q8HR NELSON Administration Heparin Sodium (Porcine) 5,000 unit 07/29/20 11:29 08/02/20 23:15 Heparin IV 5,000 unit SCOTTY PRN Administration hemodialysis Hydralazine HCl 100 mg 07/14/20 14:00 08/16/20 21:57 Apresoline PO 100 mg TID [facility] Administration Hydrophilic Ointment 1 applic 05/28/20 13:49 Vaseline Lip Therapy TP Q2HR PRN Dry Lips Norepinephrine 4 mg in 250 mls @ 7.5 mls/hr 07/23/20 20:00 08/05/20 05:21 Levophed Drip 4 Mg/Ns 250 Ml IV 0 mcg/min TITR NELSON 0 mls/hr Titration Protocol 2 MCG/MIN Phenytoin 150 mg/ Sodium 103 mls @ 408 mls/hr 08/03/20 09:00 08/16/20 21:57 Chloride IV 408 mls/hr Q8HR [facility] Administration Sodium Chloride 100 mls @ 999 mls/hr 08/04/20 22:27 Nacl 0.9% IV SCOTTY PRN Hypotension Insulin Glargine 10 units 06/08/20 22:00 08/16/20 21:49 Lantus SUB-Q Not Given QHS [facility] Insulin Human Lispro 0 unit 05/29/20 18:00 08/17/20 06:41 Humalog SUB-Q Not Given Q6H [facility] Protocol Labetalol HCl 20 mg 06/03/20 09:00 07/31/20 12:14 Labetalol IV 20 mg Q4H PRN Administration HYPERTENSION Lansoprazole 30 mg 08/08/20 10:00 08/16/20 09:03 Prevacid Solutab FEEDTUBE 30 mg QDAY NELSON Administration Levetiracetam 1,000 mg 08/08/20 22:00 08/16/20 21:57 Keppra PO 1,000 mg BID NELSON Administration Minoxidil 5 mg 07/21/20 10:00 08/16/20 21:56 Loniten PO 5 mg BID NELSON Administration Multi-Ingred Cream/Lotion/Oil/Oint 1 applic 05/28/20 13:49 Artificial Tears Ophth Oint OU Q4HR PRN Dry Eye(s) Ondansetron HCl 4 mg 06/02/20 09:00 06/09/20 16:48 Zofran IV 4 mg Q8H PRN Administration Nausea And Vomiting Senna 17.6 mg 06/03/20 10:00 08/16/20 21:57 Senokot FEEDTUBE 17.6 mg BID NELSON Administration Simple Syrup 15 ml 05/29/20 13:39 Simple Syrup FEEDTUBE PRN PRN Hypoglycemia Simple Syrup 30 ml 05/29/20 13:39 Simple Syrup FEEDTUBE PRN PRN Hypoglycemia Sodium Bicarbonate 325 mg 05/29/20 13:39 07/07/20 10:36 Sodium Bicarbonate FEEDTUBE 325 mg PRN PRN Administration For Clogged Feeding Tube Sodium Chloride 10 ml 05/28/20 22:00 08/16/20 21:59 Sodium Chloride Flush Syringe 10 Ml IV 10 ml BID NELSON Administration Sodium Chloride 10 ml 05/28/20 19:08 08/11/20 12:42 Sodium Chloride Flush Syringe 10 Ml IV 10 ml PRN PRN Administration LINE FLUSH Torsemide 100 mg 08/13/20 06:00 08/16/20 06:05 Demadex PO 100 mg DAILY@0600 NELSON Administration Nutrition/Malnutrition Assess - Dietary Evaluation Nutrition/Malnutrition Findings: Nutrition Notes Start: 05/29/20 11:45 Freq: Status: Active Protocol: Document 08/11/20 12:18 KYLIE (Rec: 08/11/20 12:23 KYLIE [id number]) Co-Sign 08/11/20 12:18 MK Nutrition Notes Initial or Follow up Reassessment Current Diagnosis Acute Kidney Injury,Diabetes, Heart Failure,Respiratory Failure Other Pertinent Diagnosis COVID-19 (+), Pulmonary edema, dysphagia Current Diet Nepro at 40 ml/hr Labs/Tests Na 135 BUN 48 Cr 2.2 BG 53 POC 72 Pertinent Medications Dextrose 75g Lasix Height 5 ft 6 in Weight 123 kg [place] Body Weight (kg) 59.09 BMI 43.7 Weight Status Morbidly Obese Subjective/Other Information F/u TF, fluid, Na. Pt remains fluid overloaded. Hospice care possibility. Percent of energy/protein needs met: 100%/100% (Protein based on minimum 1.2g /kg IBW for dialysis) Burn Absent Trauma Absent GI Symptoms None Current % PO Negligible Minimum of two criteria No Fluid Accumulation Mild (non-severe) #1 Nutrition Diagnosis Inadequate oral intake Diagnosis Progress(for reassessment Continues documentation) Is patient on ventilator? Yes Is Patient Ambulatory and/or Out of Bed No REE-([place] [facility]-confined to bed) 2172.576 Kcal/Kg value to use for calculation 13 Approximate Energy Requirements Using 1599 kcal/Kg Calculation Used for Recommendations Kcal/kg Additional Notes Protein needs up to 148g (up to 2.5g/kg IBW) with minimum of 71g (>1.2g/kg of IBW for dialysis) Fluid needs 1ml/kcal or per MD orders Nutrition Intervention Change Diet Order: Continue Nutrition Support: Nepro at 40 ml/hr Flush 50ml q4h Kcal 1,728 Protein (gm) 78 Fluid (mL) 697 Goal #1 Meet at least 75% of energy and protein needs by TF. Anticipated Discharge Needs: Unable to determine at this time Follow-Up By: 08/18/20 Additional Comments F/u TF and POC
[2020-08-17] MEDS: TORSEMIDE 100 MG TAB PO SCH (09:00)
[2020-08-17] MEDS: PHENYTOIN IV SCH ×3 (09:00→23:29)
[2020-08-17] MEDS: SODIUM CHLORIDE 0.9% IV SCH ×3 (09:00→23:29)
[2020-08-17] MEDS: MINOXIDIL 2.5 MG TAB PO SCH ×2 (09:25→23:29)
[2020-08-17] MEDS: GLYCOPYRROLATE 2 MG TAB PO SCH ×3 (09:26→23:30)
[2020-08-17] MEDS: amLODIPine 10 MG TAB PO SCH (09:27)
[2020-08-17] MEDS: LANSOPRAZOLE 30 MG SOLUTAB FEEDTUBE SCH (09:27)
[2020-08-17] MEDS: SENNOSIDES ORAL LIQD 8.8 MG/5 ML ORAL LIQD FEEDTUBE SCH ×2 (09:27→23:30)
[2020-08-17] MEDS: hydrALAZINE 100 MG TAB PO SCH ×3 (09:40→23:30)
[2020-08-17] MEDS: levETIRAcetam 500 MG/5 ML ORAL LIQD PO SCH ×2 (10:27→23:29)
--- NOTE | 2020-08-17 12:57 | Progress Note ---
Assessment and Plan Acute hypoxemic respiratory failure on MVS Coronavirus-19 infection. Bilateral pulmonary infiltrates, bilateral pneumonia plus likely element of Pulmonary edema. Bilateral pulmonary edema. Bilateral pleural effusions. History of congestive heart failure. Morbid obesity. History of pulmonary hypertension. History of hypertension. Diabetes. Obesity hypoventilation syndrome. Elevated serum inflammatory markers to include D-dimers and LDH levels. Hyperkalemia at presentation. Metabolic acidosis. Oropharyngeal dysphagia. (AMS remains rate limiting factor to safe extubation; she will need a tracheo stomy if continued care desired) - continue daily SBT's and attempts to wean - discharge planning ongoing concurrently - continue to rest on AC qhs - continue care as below otherwise; - prn CXR's and ABG's - no clinical seizures - await families next steps - not a candidate for safe extubation now; - prn vasopressors for target MAP > 65 mmHg - prn CXR's and ABG's at this point - repeat EEG next per neurology rec's (repeat CT brain negative) - AED's per neurology ([facility] [employer] [facility]) - surgery evaluation ongoing for trach +/- PEG (await negative COVID PCR result) - continue Modafinil re: lethargy / somnolence - continue daytime PSV trials as tolerated - Daily SAT and SBT assessment as tolerated - continue to wean supplemental oxygen for target O2 sat's > 92% acutely - VAP bundle addressed - continue lung protective strategies - continue bronchodilators with pulmonary hygiene per RT - wean per pulmonary driven protocols otherwise - continue accuchecks resumed with glycemic control per SSI (While critically ill target blood glucose of 140-180 mg/dL; avoid hypoglycemia) - sedation prn for target RASS 0 to -1 - continue to avoid benzodiazepine's, reduce the possibility of delirium - AB's per ID rec's (following clinically of AB's at this time) - continue enteral nutrition at goal rate as tolerated - AED's per neurology - prn analgesia per CPOT score - Maintenance of sleep-wake cycle, avoid delirium - continue enteral nutritional support at goal rate as tolerated - G.I. & VTE prophylaxis with heparin & famotidine - PT/OT/ROM exercises - continue mobility protocols for pressure ulcer prophylaxis - Monitor hemodynamics closely - continue other care per attending / other consultants - discharge planning ongoing concurrently (LTAC evaluation is appropriate) .... Re-evaluate in am & prn; will continue aggressive care until clear family wants to decelerate CONDITION: CRITICAL PROGNOSIS: GUARDED CODE STATUS: FULL CODE The high probability of a clinically significant, sudden or life-threatening deterioration of the [respiratory, cardiovascular, GI & neurologic] system(s) re quired my full and direct attention, intervention and personal management. The aggregate critical care time was [35] minutes without overlap. Time includes spent on; [x] Data Review and interpretation [x] Patient assessment and monitoring of vital signs [x] Documentation [x] Medication orders and management Subjective Date of service: 08/17/20 Principal diagnosis: Ac hypoxemic resp failure; COVID-19; pneumonia; CHF; Pulm HTN; OHS; DM II Interval history: Patient is seen today for: Ac hypoxemic resp failure; Coronavirus-19 infection; pneumonia; Pulmonary edema; Bilateral pleural effusions; CHF; Morbid obesity; pulmonary hypertension; OHS; DM II Seen and examined at bedside; 24hour events reviewed; nursing and respiratory care staff consulted; no adverse overnight events reported to me; resting peacefully in bed; remains on MVS, on full AC suppoprt; tentatively for transfer to home hospice today Objective Vital Signs - 12hr 08/17/20 08/17/20 08/17/20 01:01 02:01 03:01 Temperature Pulse Rate 77 79 78 Respiratory 20 15 20 Rate Blood Pressure 145/55 133/43 138/46 O2 Sat by Pulse 98 98 98 Oximetry 08/17/20 08/17/20 08/17/20 03:45 04:00 04:01 Temperature 100.1 F H Pulse Rate 79 79 Respiratory 20 Rate Blood Pressure 127/53 O2 Sat by Pulse 98 Oximetry 08/17/20 08/17/20 08/17/20 04:43 05:01 06:01 Temperature Pulse Rate 82 80 80 Respiratory 19 18 Rate Blood Pressure 127/53 139/57 137/50 O2 Sat by Pulse 98 98 98 Oximetry 08/17/20 08/17/20 08/17/20 07:01 07:50 08:00 Temperature Pulse Rate 76 79 79 Respiratory 13 Rate Blood Pressure 127/52 136/48 O2 Sat by Pulse 97 98 97 Oximetry 08/17/20 08/17/20 08/17/20 08:01 08:30 09:01 Temperature Pulse Rate 79 85 83 Respiratory 17 28 H 27 H Rate Blood Pressure 136/48 136/48 O2 Sat by Pulse 97 96 96 Oximetry 08/17/20 08/17/20 08/17/20 09:27 10:01 11:00 Temperature Pulse Rate 86 85 83 Respiratory 28 H 11 L Rate Blood Pressure 143/45 127/57 O2 Sat by Pulse 94 94 Oximetry Constitutional: appears uncomfortable, other (elderly looking female with mildly increased resp effort at rest) Eyes: non-icteric ENT: oropharynx moist, oropharyngeal exudate pre (mild to moderate), other (ETT 23-24 cm AYAN) Neck: supple, no lymphadenopathy, no JVD Effort: mildly labored Ascultation: Bilateral: diminished breath sounds, rhonchi Percussion: Bilateral: not dull Cardiovascular: regular rate and rhythm, other (S1,S2) Gastrointestinal: normoactive bowel sounds, soft, non-tender, non-distended Integumentary: rash, other (anasarca) Extremities: no cyanosis, pink and warm, pulses normal, no ischemia or petechiae, edema (+ anasarca) Neurologic: unable to assess, other (lethargic to obtunded) Psychiatric: other (unable to assess re: AMS) CBC and BMP: 08/11/20 03:55 08/14/20 04:50 ABG, PT/INR, D-dimer: ABG ABG pH 7.344 pH Units (7.350-7.450) L 08/02/20 11:25 POC ABG pCO2 44.1 mmHg (32.0-48.0) 07/18/20 04:24 ABG pCO2 39.0 mm Hg 08/02/20 11:25 POC ABG pO2 86.8 mmHg (83-108) 07/18/20 04:24 ABG pO2 101.1 mm Hg (80.0-90.0) H 08/02/20 11:25 POC ABG HCO3 25.6 07/18/20 04:24 ABG O2 Saturation 97.5 % (95.0-99.0) 08/02/20 11:25 PT/INR, D-dimer PT 14.2 Sec. (12.2-14.9) 05/29/20 15:10 INR 1.08 (0.87-1.13) 08/21/20 15:10 D-Dimer 2310.15 ng/mlDDU (0-234) H 06/29/20 14:45 Abnormal lab findings: Abnormal Labs 05/28/20 05/28/20 05/28/20 13:29 13:47 13:47 WBC RBC Hgb Hct MCHC RDW 15.3 H Lymph % (Auto) [place] % (Auto) Eos % (Auto) Lymph # [place] # Lymph # (Auto) [place] # (Auto) Eos # (Auto) Seg Neutrophils % Seg Neuts % (Manual) Lymphocytes % (Manual) Seg Neutrophils # Seg Neutrophils # Man Lymphocytes # (Manual) Monocytes % (Manual) Eosinophils % (Manual) Monocytes # (Manual) Eosinophils # (Manual) D-Dimer Heparin Anti-Xa Level ABG pH POC ABG pCO2 POC ABG pO2 ABG pO2 ABG HCO3 ABG O2 Saturation ABG Base Excess ABG Hemoglobin ABG Oxyhemoglobin VBG pH ABG Sodium ABG Potassium ABG Glucose Oxyhemoglobin Sodium Potassium 6.6 H* Chloride 109.2 H Carbon Dioxide 17 L BUN 29 H Creatinine 1.3 H Glucose 265 H POC Glucose 248 H Lactic Acid Calcium 8.1 L Ferritin AST 63 H Alkaline Phosphatase Magnesium Lactate Dehydrogenase Total Creatine Kinase 301 H CK-MB (CK-2) 4.3 H C-Reactive Protein Total Protein 5.4 L Albumin 2.6 L Troponin T HDL Cholesterol Arterial Blood Glucose Urine WBC (Auto) Urine Creatinine Urine Total Protein Phenytoin Coronavirus (PCR) Crossmatch 05/28/20 05/28/20 05/28/20 13:47 13:47 14:46 WBC RBC Hgb Hct MCHC RDW Lymph % (Auto) [place] % (Auto) Eos % (Auto) Lymph # [place] # Lymph # (Auto) [place] # (Auto) Eos # (Auto) Seg Neutrophils % Seg Neuts % (Manual) Lymphocytes % (Manual) Seg Neutrophils # Seg Neutrophils # Man Lymphocytes # (Manual) Monocytes % (Manual) Eosinophils % (Manual) Monocytes # (Manual) Eosinophils # (Manual) D-Dimer Heparin Anti-Xa Level ABG pH POC ABG pCO2 POC ABG pO2 ABG pO2 ABG HCO3 ABG O2 Saturation ABG Base Excess ABG Hemoglobin ABG Oxyhemoglobin VBG pH 7.152 L* ABG Sodium ABG Potassium ABG Glucose Oxyhemoglobin Sodium Potassium 7.2 H* Chloride Carbon Dioxide BUN Creatinine Glucose POC Glucose Lactic Acid 3.40 H* Calcium Ferritin AST Alkaline Phosphatase Magnesium Lactate Dehydrogenase Total Creatine Kinase CK-MB (CK-2) C-Reactive Protein Total Protein Albumin Troponin T HDL Cholesterol Arterial Blood Glucose Urine WBC (Auto) Urine Creatinine Urine Total Protein Phenytoin Coronavirus (PCR) Crossmatch 05/28/20 05/28/20 05/28/20 15:33 15:33 15:51 WBC RBC Hgb Hct MCHC RDW Lymph % (Auto) [place] % (Auto) Eos % (Auto) Lymph # [place] # Lymph # (Auto) [place] # (Auto) Eos # (Auto) Seg Neutrophils % Seg Neuts % (Manual) Lymphocytes % (Manual) Seg Neutrophils # Seg Neutrophils # Man Lymphocytes # (Manual) Monocytes % (Manual) Eosinophils % (Manual) Monocytes # (Manual) Eosinophils # (Manual) D-Dimer 8780.43 H Heparin Anti-Xa Level ABG pH 7.284 L POC ABG pCO2 POC ABG pO2 ABG pO2 273.0 H ABG HCO3 ABG O2 Saturation 99.4 H ABG Base Excess -6.1 L ABG Hemoglobin 17.2 H ABG Oxyhemoglobin VBG pH ABG Sodium ABG Potassium ABG Glucose Oxyhemoglobin Sodium Potassium Chloride Carbon Dioxide BUN Creatinine Glucose 152 H POC Glucose Lactic Acid Calcium Ferritin AST Alkaline Phosphatase Magnesium Lactate Dehydrogenase 365 H Total Creatine Kinase CK-MB (CK-2) C-Reactive Protein Total Protein Albumin Troponin T HDL Cholesterol Arterial Blood Glucose Urine WBC (Auto) Urine Creatinine Urine Total Protein Phenytoin Coronavirus (PCR) Crossmatch 05/28/20 05/28/20 05/28/20 16:30 20:41 23:20 WBC RBC Hgb Hct MCHC RDW Lymph % (Auto) [place] % (Auto) Eos % (Auto) Lymph # [place] # Lymph # (Auto) [place] # (Auto) Eos # (Auto) Seg Neutrophils % Seg Neuts % (Manual) Lymphocytes % (Manual) Seg Neutrophils # Seg Neutrophils # Man Lymphocytes # (Manual) Monocytes % (Manual) Eosinophils % (Manual) Monocytes # (Manual) Eosinophils # (Manual) D-Dimer Heparin Anti-Xa Level ABG pH POC ABG pCO2 POC ABG pO2 ABG pO2 ABG HCO3 ABG O2 Saturation ABG Base Excess ABG Hemoglobin ABG Oxyhemoglobin VBG pH ABG Sodium ABG Potassium ABG Glucose Oxyhemoglobin Sodium Potassium Chloride Carbon Dioxide BUN Creatinine Glucose POC Glucose 225 H 224 H Lactic Acid Calcium Ferritin AST Alkaline Phosphatase Magnesium Lactate Dehydrogenase Total Creatine Kinase CK-MB (CK-2) C-Reactive Protein Total Protein Albumin Troponin T HDL Cholesterol Arterial Blood Glucose Urine WBC (Auto) 17.0 H Urine Creatinine Urine Total Protein Phenytoin Coronavirus (PCR) Crossmatch 05/28/20 05/29/20 05/29/20 Unknown 04:35 04:43 WBC RBC 3.48 L Hgb 9.8 L Hct 29.4 L MCHC RDW 16.0 H Lymph % (Auto) 7.4 L [place] % (Auto) Eos % (Auto) Lymph # 0.7 L [place] # Lymph # (Auto) [place] # (Auto) Eos # (Auto) Seg Neutrophils % 89.1 H Seg Neuts % (Manual) Lymphocytes % (Manual) Seg Neutrophils # 8.1 H Seg Neutrophils # Man Lymphocytes # (Manual) Monocytes % (Manual) Eosinophils % (Manual) Monocytes # (Manual) Eosinophils # (Manual) D-Dimer Heparin Anti-Xa Level ABG pH POC ABG pCO2 POC ABG pO2 ABG pO2 ABG HCO3 19.3 L ABG O2 Saturation ABG Base Excess -4.5 L ABG Hemoglobin 9.7 L ABG Oxyhemoglobin VBG pH ABG Sodium ABG Potassium ABG Glucose Oxyhemoglobin Sodium Potassium Chloride Carbon Dioxide BUN Creatinine Glucose POC Glucose Lactic Acid Calcium Ferritin AST Alkaline Phosphatase Magnesium Lactate Dehydrogenase Total Creatine Kinase CK-MB (CK-2) C-Reactive Protein Total Protein Albumin Troponin T HDL Cholesterol Arterial Blood Glucose Urine WBC (Auto) Urine Creatinine Urine Total Protein Phenytoin Coronavirus (PCR) Positive A Crossmatch 05/29/20 05/29/20 05/29/20 04:43 15:10 17:17 WBC RBC Hgb 9.3 L Hct 28.7 L MCHC RDW Lymph % (Auto) [place] % (Auto) Eos % (Auto) Lymph # [place] # Lymph # (Auto) [place] # (Auto) Eos # (Auto) Seg Neutrophils % Seg Neuts % (Manual) Lymphocytes % (Manual) Seg Neutrophils # Seg Neutrophils # Man Lymphocytes # (Manual) Monocytes % (Manual) Eosinophils % (Manual) Monocytes # (Manual) Eosinophils # (Manual) D-Dimer Heparin Anti-Xa Level ABG pH POC ABG pCO2 POC ABG pO2 ABG pO2 ABG HCO3 ABG O2 Saturation ABG Base Excess ABG Hemoglobin ABG Oxyhemoglobin VBG pH ABG Sodium ABG Potassium ABG Glucose Oxyhemoglobin Sodium Potassium Chloride 110.2 H Carbon Dioxide 18 L BUN 32 H Creatinine 1.4 H Glucose 180 H POC Glucose 147 H Lactic Acid Calcium Ferritin AST Alkaline Phosphatase Magnesium Lactate Dehydrogenase Total Creatine Kinase CK-MB (CK-2) C-Reactive Protein Total Protein Albumin Troponin T HDL Cholesterol Arterial Blood Glucose Urine WBC (Auto) Urine Creatinine Urine Total Protein Phenytoin Coronavirus (PCR) Crossmatch 05/30/20 05/30/20 05/30/20 00:08 00:12 04:15 WBC RBC Hgb Hct MCHC RDW Lymph % (Auto) [place] % (Auto) Eos % (Auto) Lymph # [place] # Lymph # (Auto) [place] # (Auto) Eos # (Auto) Seg Neutrophils % Seg Neuts % (Manual) Lymphocytes % (Manual) Seg Neutrophils # Seg Neutrophils # Man Lymphocytes # (Manual) Monocytes % (Manual) Eosinophils % (Manual) Monocytes # (Manual) Eosinophils # (Manual) D-Dimer Heparin Anti-Xa Level 0.71 H ABG pH 7.460 H POC ABG pCO2 POC ABG pO2 ABG pO2 106.0 H ABG HCO3 18.9 L ABG O2 Saturation ABG Base Excess -4.4 L ABG Hemoglobin 6.8 L ABG Oxyhemoglobin VBG pH ABG Sodium ABG Potassium ABG Glucose Oxyhemoglobin Sodium Potassium Chloride Carbon Dioxide BUN Creatinine Glucose POC Glucose 195 H Lactic Acid Calcium Ferritin AST Alkaline Phosphatase Magnesium Lactate Dehydrogenase Total Creatine Kinase CK-MB (CK-2) C-Reactive Protein Total Protein Albumin Troponin T HDL Cholesterol Arterial Blood Glucose Urine WBC (Auto) Urine Creatinine Urine Total Protein Phenytoin Coronavirus (PCR) Crossmatch 05/30/20 05/30/20 05/30/20 06:07 08:37 12:33 WBC RBC Hgb Hct MCHC RDW Lymph % (Auto) [place] % (Auto) Eos % (Auto) Lymph # [place] # Lymph # (Auto) [place] # (Auto) Eos # (Auto) Seg Neutrophils % Seg Neuts % (Manual) Lymphocytes % (Manual) Seg Neutrophils # Seg Neutrophils # Man Lymphocytes # (Manual) Monocytes % (Manual) Eosinophils % (Manual) Monocytes # (Manual) Eosinophils # (Manual) D-Dimer Heparin Anti-Xa Level 0.85 H ABG pH POC ABG pCO2 POC ABG pO2 ABG pO2 ABG HCO3 ABG O2 Saturation ABG Base Excess ABG Hemoglobin ABG Oxyhemoglobin VBG pH ABG Sodium ABG Potassium ABG Glucose Oxyhemoglobin Sodium Potassium Chloride Carbon Dioxide BUN Creatinine Glucose POC Glucose 182 H 187 H Lactic Acid Calcium Ferritin AST Alkaline Phosphatase Magnesium Lactate Dehydrogenase Total Creatine Kinase CK-MB (CK-2) C-Reactive Protein Total Protein Albumin Troponin T HDL Cholesterol Arterial Blood Glucose Urine WBC (Auto) Urine Creatinine Urine Total Protein Phenytoin Coronavirus (PCR) Crossmatch 05/30/20 05/30/20 05/30/20 15:58 17:57 23:36 WBC RBC Hgb Hct MCHC RDW Lymph % (Auto) [place] % (Auto) Eos % (Auto) Lymph # [place] # Lymph # (Auto) [place] # (Auto) Eos # (Auto) Seg Neutrophils % Seg Neuts % (Manual) Lymphocytes % (Manual) Seg Neutrophils # Seg Neutrophils # Man Lymphocytes # (Manual) Monocytes % (Manual) Eosinophils % (Manual) Monocytes # (Manual) Eosinophils # (Manual) D-Dimer Heparin Anti-Xa Level 1.03 H ABG pH POC ABG pCO2 POC ABG pO2 ABG pO2 ABG HCO3 ABG O2 Saturation ABG Base Excess ABG Hemoglobin ABG Oxyhemoglobin VBG pH ABG Sodium ABG Potassium ABG Glucose Oxyhemoglobin Sodium Potassium Chloride Carbon Dioxide BUN Creatinine Glucose POC Glucose 208 H 185 H Lactic Acid Calcium Ferritin AST Alkaline Phosphatase Magnesium Lactate Dehydrogenase Total Creatine Kinase CK-MB (CK-2) C-Reactive Protein Total Protein Albumin Troponin T HDL Cholesterol Arterial Blood Glucose Urine WBC (Auto) Urine Creatinine Urine Total Protein Phenytoin Coronavirus (PCR) Crossmatch 05/31/20 05/31/20 05/31/20 02:16 03:55 06:16 WBC RBC Hgb 9.2 L Hct 27.5 L MCHC RDW Lymph % (Auto) [place] % (Auto) Eos % (Auto) Lymph # [place] # Lymph # (Auto) [place] # (Auto) Eos # (Auto) Seg Neutrophils % Seg Neuts % (Manual) Lymphocytes % (Manual) Seg Neutrophils # Seg Neutrophils # Man Lymphocytes # (Manual) Monocytes % (Manual) Eosinophils % (Manual) Monocytes # (Manual) Eosinophils # (Manual) D-Dimer Heparin Anti-Xa Level ABG pH POC ABG pCO2 POC ABG pO2 ABG pO2 94.7 H ABG HCO3 18.6 L ABG O2 Saturation ABG Base Excess -5.5 L ABG Hemoglobin 7.9 L ABG Oxyhemoglobin VBG pH ABG Sodium ABG Potassium ABG Glucose Oxyhemoglobin Sodium Potassium Chloride Carbon Dioxide BUN Creatinine Glucose POC Glucose 160 H Lactic Acid Calcium Ferritin AST Alkaline Phosphatase Magnesium Lactate Dehydrogenase Total Creatine Kinase CK-MB (CK-2) C-Reactive Protein Total Protein Albumin Troponin T HDL Cholesterol Arterial Blood Glucose Urine WBC (Auto) Urine Creatinine Urine Total Protein Phenytoin Coronavirus (PCR) Crossmatch 05/31/20 05/31/20 05/31/20 12:20 13:03 18:13 WBC RBC Hgb Hct MCHC RDW Lymph % (Auto) [place] % (Auto) Eos % (Auto) Lymph # [place] # Lymph # (Auto) [place] # (Auto) Eos # (Auto) Seg Neutrophils % Seg Neuts % (Manual) Lymphocytes % (Manual) Seg Neutrophils # Seg Neutrophils # Man Lymphocytes # (Manual) Monocytes % (Manual) Eosinophils % (Manual) Monocytes # (Manual) Eosinophils # (Manual) D-Dimer Heparin Anti-Xa Level ABG pH POC ABG pCO2 POC ABG pO2 ABG pO2 ABG HCO3 ABG O2 Saturation ABG Base Excess ABG Hemoglobin ABG Oxyhemoglobin VBG pH ABG Sodium ABG Potassium ABG Glucose Oxyhemoglobin Sodium Potassium Chloride Carbon Dioxide 18 L BUN 48 H Creatinine 1.6 H Glucose 115 H POC Glucose 128 H 159 H Lactic Acid Calcium 8.3 L Ferritin AST Alkaline Phosphatase Magnesium Lactate Dehydrogenase Total Creatine Kinase CK-MB (CK-2) C-Reactive Protein Total Protein 5.4 L Albumin 2.4 L Troponin T HDL Cholesterol Arterial Blood Glucose Urine WBC (Auto) Urine Creatinine Urine Total Protein Phenytoin Coronavirus (PCR) Crossmatch 05/31/20 06/01/20 06/01/20 23:51 04:00 05:48 WBC RBC Hgb Hct MCHC RDW Lymph % (Auto) [place] % (Auto) Eos % (Auto) Lymph # [place] # Lymph # (Auto) [place] # (Auto) Eos # (Auto) Seg Neutrophils % Seg Neuts % (Manual) Lymphocytes % (Manual) Seg Neutrophils # Seg Neutrophils # Man Lymphocytes # (Manual) Monocytes % (Manual) Eosinophils % (Manual) Monocytes # (Manual) Eosinophils # (Manual) D-Dimer Heparin Anti-Xa Level ABG pH POC ABG pCO2 POC ABG pO2 ABG pO2 109.8 H ABG HCO3 18.8 L ABG O2 Saturation ABG Base Excess -5.9 L ABG Hemoglobin 7.8 L ABG Oxyhemoglobin VBG pH ABG Sodium ABG Potassium ABG Glucose Oxyhemoglobin Sodium Potassium Chloride Carbon Dioxide BUN Creatinine Glucose POC Glucose 171 H 133 H Lactic Acid Calcium Ferritin AST Alkaline Phosphatase Magnesium Lactate Dehydrogenase Total Creatine Kinase CK-MB (CK-2) C-Reactive Protein Total Protein Albumin Troponin T HDL Cholesterol Arterial Blood Glucose Urine WBC (Auto) Urine Creatinine Urine Total Protein Phenytoin Coronavirus (PCR) Crossmatch 06/01/20 06/01/20 06/02/20 12:28 17:29 00:08 WBC RBC Hgb Hct MCHC RDW Lymph % (Auto) [place] % (Auto) Eos % (Auto) Lymph # [place] # Lymph # (Auto) [place] # (Auto) Eos # (Auto) Seg Neutrophils % Seg Neuts % (Manual) Lymphocytes % (Manual) Seg Neutrophils # Seg Neutrophils # Man Lymphocytes # (Manual) Monocytes % (Manual) Eosinophils % (Manual) Monocytes # (Manual) Eosinophils # (Manual) D-Dimer Heparin Anti-Xa Level ABG pH POC ABG pCO2 POC ABG pO2 ABG pO2 ABG HCO3 ABG O2 Saturation ABG Base Excess ABG Hemoglobin ABG Oxyhemoglobin VBG pH ABG Sodium ABG Potassium ABG Glucose Oxyhemoglobin Sodium Potassium Chloride Carbon Dioxide BUN Creatinine Glucose POC Glucose 199 H 209 H 162 H Lactic Acid Calcium Ferritin AST Alkaline Phosphatase Magnesium Lactate Dehydrogenase Total Creatine Kinase CK-MB (CK-2) C-Reactive Protein Total Protein Albumin Troponin T HDL Cholesterol Arterial Blood Glucose Urine WBC (Auto) Urine Creatinine Urine Total Protein Phenytoin Coronavirus (PCR) Crossmatch 06/02/20 06/02/20 06/02/20 04:20 04:20 04:44 WBC RBC Hgb 10.0 L Hct MCHC RDW Lymph % (Auto) [place] % (Auto) Eos % (Auto) Lymph # [place] # Lymph # (Auto) [place] # (Auto) Eos # (Auto) Seg Neutrophils % Seg Neuts % (Manual) Lymphocytes % (Manual) Seg Neutrophils # Seg Neutrophils # Man Lymphocytes # (Manual) Monocytes % (Manual) Eosinophils % (Manual) Monocytes # (Manual) Eosinophils # (Manual) D-Dimer Heparin Anti-Xa Level 0.10 L ABG pH POC ABG pCO2 POC ABG pO2 ABG pO2 150.6 H ABG HCO3 ABG O2 Saturation ABG Base Excess -4.1 L ABG Hemoglobin 11.8 L ABG Oxyhemoglobin VBG pH ABG Sodium ABG Potassium ABG Glucose Oxyhemoglobin Sodium Potassium Chloride Carbon Dioxide BUN Creatinine Glucose POC Glucose Lactic Acid Calcium Ferritin AST Alkaline Phosphatase Magnesium Lactate Dehydrogenase Total Creatine Kinase CK-MB (CK-2) C-Reactive Protein Total Protein Albumin Troponin T HDL Cholesterol Arterial Blood Glucose Urine WBC (Auto) Urine Creatinine Urine Total Protein Phenytoin Coronavirus (PCR) Crossmatch 06/02/20 06/02/20 06/02/20 05:53 12:04 13:49 WBC RBC Hgb Hct MCHC RDW Lymph % (Auto) [place] % (Auto) Eos % (Auto) Lymph # [place] # Lymph # (Auto) [place] # (Auto) Eos # (Auto) Seg Neutrophils % Seg Neuts % (Manual) Lymphocytes % (Manual) Seg Neutrophils # Seg Neutrophils # Man Lymphocytes # (Manual) Monocytes % (Manual) Eosinophils % (Manual) Monocytes # (Manual) Eosinophils # (Manual) D-Dimer Heparin Anti-Xa Level 0.28 L ABG pH POC ABG pCO2 POC ABG pO2 ABG pO2 ABG HCO3 ABG O2 Saturation ABG Base Excess ABG Hemoglobin ABG Oxyhemoglobin VBG pH ABG Sodium ABG Potassium ABG Glucose Oxyhemoglobin Sodium Potassium Chloride Carbon Dioxide BUN Creatinine Glucose POC Glucose 149 H 220 H Lactic Acid Calcium Ferritin AST Alkaline Phosphatase Magnesium Lactate Dehydrogenase Total Creatine Kinase CK-MB (CK-2) C-Reactive Protein Total Protein Albumin Troponin T HDL Cholesterol Arterial Blood Glucose Urine WBC (Auto) Urine Creatinine Urine Total Protein Phenytoin Coronavirus (PCR) Crossmatch 06/02/20 06/02/20 06/03/20 13:49 18:31 00:42 WBC RBC Hgb Hct MCHC RDW Lymph % (Auto) [place] % (Auto) Eos % (Auto) Lymph # [place] # Lymph # (Auto) [place] # (Auto) Eos # (Auto) Seg Neutrophils % Seg Neuts % (Manual) Lymphocytes % (Manual) Seg Neutrophils # Seg Neutrophils # Man Lymphocytes # (Manual) Monocytes % (Manual) Eosinophils % (Manual) Monocytes # (Manual) Eosinophils # (Manual) D-Dimer 769.68 H Heparin Anti-Xa Level ABG pH POC ABG pCO2 POC ABG pO2 ABG pO2 ABG HCO3 ABG O2 Saturation ABG Base Excess ABG Hemoglobin ABG Oxyhemoglobin VBG pH ABG Sodium ABG Potassium ABG Glucose Oxyhemoglobin Sodium Potassium Chloride Carbon Dioxide BUN Creatinine Glucose POC Glucose 225 H 212 H Lactic Acid Calcium Ferritin AST Alkaline Phosphatase Magnesium Lactate Dehydrogenase Total Creatine Kinase CK-MB (CK-2) C-Reactive Protein Total Protein Albumin Troponin T HDL Cholesterol Arterial Blood Glucose Urine WBC (Auto) Urine Creatinine Urine Total Protein Phenytoin Coronavirus (PCR) Crossmatch 06/03/20 06/03/20 06/03/20 05:16 05:16 05:25 WBC 11.4 H RBC Hgb Hct MCHC RDW 16.4 H Lymph % (Auto) [place] % (Auto) Eos % (Auto) Lymph # [place] # Lymph # (Auto) [place] # (Auto) Eos # (Auto) Seg Neutrophils % Seg Neuts % (Manual) Lymphocytes % (Manual) Seg Neutrophils # Seg Neutrophils # Man Lymphocytes # (Manual) Monocytes % (Manual) Eosinophils % (Manual) Monocytes # (Manual) Eosinophils # (Manual) D-Dimer Heparin Anti-Xa Level ABG pH POC ABG pCO2 POC ABG pO2 ABG pO2 160.9 H ABG HCO3 19.4 L ABG O2 Saturation ABG Base Excess -4.9 L ABG Hemoglobin 7.0 L ABG Oxyhemoglobin VBG pH ABG Sodium ABG Potassium ABG Glucose Oxyhemoglobin Sodium Potassium Chloride Carbon Dioxide 18 L BUN 65 H Creatinine 2.0 H Glucose 175 H POC Glucose Lactic Acid Calcium 8.0 L Ferritin AST Alkaline Phosphatase Magnesium Lactate Dehydrogenase Total Creatine Kinase CK-MB (CK-2) C-Reactive Protein Total Protein 5.5 L Albumin 2.2 L Troponin T HDL Cholesterol Arterial Blood Glucose Urine WBC (Auto) Urine Creatinine Urine Total Protein Phenytoin Coronavirus (PCR) Crossmatch 06/03/20 06/03/20 06/03/20 06:07 11:58 18:24 WBC RBC Hgb Hct MCHC RDW Lymph % (Auto) [place] % (Auto) Eos % (Auto) Lymph # [place] # Lymph # (Auto) [place] # (Auto) Eos # (Auto) Seg Neutrophils % Seg Neuts % (Manual) Lymphocytes % (Manual) Seg Neutrophils # Seg Neutrophils # Man Lymphocytes # (Manual) Monocytes % (Manual) Eosinophils % (Manual) Monocytes # (Manual) Eosinophils # (Manual) D-Dimer Heparin Anti-Xa Level ABG pH POC ABG pCO2 POC ABG pO2 ABG pO2 ABG HCO3 ABG O2 Saturation ABG Base Excess ABG Hemoglobin ABG Oxyhemoglobin VBG pH ABG Sodium ABG Potassium ABG Glucose Oxyhemoglobin Sodium Potassium Chloride Carbon Dioxide BUN Creatinine Glucose POC Glucose 177 H 163 H 211 H Lactic Acid Calcium Ferritin AST Alkaline Phosphatase Magnesium Lactate Dehydrogenase Total Creatine Kinase CK-MB (CK-2) C-Reactive Protein Total Protein Albumin Troponin T HDL Cholesterol Arterial Blood Glucose Urine WBC (Auto) Urine Creatinine Urine Total Protein Phenytoin Coronavirus (PCR) Crossmatch 06/03/20 06/03/20 06/04/20 21:50 Unknown 00:26 WBC RBC Hgb Hct MCHC RDW Lymph % (Auto) [place] % (Auto) Eos % (Auto) Lymph # [place] # Lymph # (Auto) [place] # (Auto) Eos # (Auto) Seg Neutrophils % Seg Neuts % (Manual) Lymphocytes % (Manual) Seg Neutrophils # Seg Neutrophils # Man Lymphocytes # (Manual) Monocytes % (Manual) Eosinophils % (Manual) Monocytes # (Manual) Eosinophils # (Manual) D-Dimer Heparin Anti-Xa Level ABG pH POC ABG pCO2 POC ABG pO2 ABG pO2 ABG HCO3 ABG O2 Saturation ABG Base Excess ABG Hemoglobin ABG Oxyhemoglobin VBG pH ABG Sodium ABG Potassium ABG Glucose Oxyhemoglobin Sodium 135 L Potassium Chloride Carbon Dioxide 18 L BUN Creatinine Glucose POC Glucose 241 H Lactic Acid Calcium Ferritin AST Alkaline Phosphatase Magnesium Lactate Dehydrogenase Total Creatine Kinase CK-MB (CK-2) C-Reactive Protein Total Protein Albumin Troponin T HDL Cholesterol Arterial Blood Glucose Urine WBC (Auto) 11.0 H Urine Creatinine Urine Total Protein Phenytoin Coronavirus (PCR) Crossmatch 06/04/20 06/04/20 06/04/20 03:35 04:19 04:19 WBC RBC 3.15 L Hgb 8.9 L Hct 26.8 L D MCHC RDW 15.9 H Lymph % (Auto) 6.0 L [place] % (Auto) Eos % (Auto) Lymph # 0.6 L [place] # Lymph # (Auto) [place] # (Auto) Eos # (Auto) Seg Neutrophils % 86.6 H Seg Neuts % (Manual) Lymphocytes % (Manual) Seg Neutrophils # 9.1 H Seg Neutrophils # Man Lymphocytes # (Manual) Monocytes % (Manual) Eosinophils % (Manual) Monocytes # (Manual) Eosinophils # (Manual) D-Dimer Heparin Anti-Xa Level ABG pH 7.331 L POC ABG pCO2 POC ABG pO2 ABG pO2 ABG HCO3 ABG O2 Saturation ABG Base Excess -4.7 L ABG Hemoglobin 11.0 L ABG Oxyhemoglobin VBG pH ABG Sodium ABG Potassium ABG Glucose Oxyhemoglobin 93.9 L Sodium 136 L Potassium Chloride Carbon Dioxide 20 L BUN 73 H Creatinine 2.0 H Glucose 192 H POC Glucose Lactic Acid Calcium 8.0 L Ferritin AST Alkaline Phosphatase Magnesium Lactate Dehydrogenase 271 H Total Creatine Kinase CK-MB (CK-2) C-Reactive Protein 2.20 H Total Protein 5.0 L Albumin 2.0 L Troponin T HDL Cholesterol Arterial Blood Glucose Urine WBC (Auto) Urine Creatinine Urine Total Protein Phenytoin Coronavirus (PCR) Crossmatch 06/04/20 06/04/20 06/04/20 04:19 05:51 11:48 WBC RBC Hgb Hct MCHC RDW Lymph % (Auto) [place] % (Auto) Eos % (Auto) Lymph # [place] # Lymph # (Auto) [place] # (Auto) Eos # (Auto) Seg Neutrophils % Seg Neuts % (Manual) Lymphocytes % (Manual) Seg Neutrophils # Seg Neutrophils # Man Lymphocytes # (Manual) Monocytes % (Manual) Eosinophils % (Manual) Monocytes # (Manual) Eosinophils # (Manual) D-Dimer 414.52 H Heparin Anti-Xa Level ABG pH POC ABG pCO2 POC ABG pO2 ABG pO2 ABG HCO3 ABG O2 Saturation ABG Base Excess ABG Hemoglobin ABG Oxyhemoglobin VBG pH ABG Sodium ABG Potassium ABG Glucose Oxyhemoglobin Sodium Potassium Chloride Carbon Dioxide BUN Creatinine Glucose POC Glucose 179 H 213 H Lactic Acid Calcium Ferritin AST Alkaline Phosphatase Magnesium Lactate Dehydrogenase Total Creatine Kinase CK-MB (CK-2) C-Reactive Protein Total Protein Albumin Troponin T HDL Cholesterol Arterial Blood Glucose Urine WBC (Auto) Urine Creatinine Urine Total Protein Phenytoin Coronavirus (PCR) Crossmatch 06/04/20 06/05/20 06/05/20 18:25 00:16 05:00 WBC RBC Hgb Hct MCHC RDW Lymph % (Auto) [place] % (Auto) Eos % (Auto) Lymph # [place] # Lymph # (Auto) [place] # (Auto) Eos # (Auto) Seg Neutrophils % Seg Neuts % (Manual) Lymphocytes % (Manual) Seg Neutrophils # Seg Neutrophils # Man Lymphocytes # (Manual) Monocytes % (Manual) Eosinophils % (Manual) Monocytes # (Manual) Eosinophils # (Manual) D-Dimer Heparin Anti-Xa Level ABG pH 7.286 L POC ABG pCO2 POC ABG pO2 ABG pO2 96.2 H ABG HCO3 ABG O2 Saturation ABG Base Excess -6.3 L ABG Hemoglobin 8.8 L ABG Oxyhemoglobin VBG pH ABG Sodium ABG Potassium ABG Glucose Oxyhemoglobin 94.8 L Sodium Potassium Chloride Carbon Dioxide BUN Creatinine Glucose POC Glucose 238 H 183 H Lactic Acid Calcium Ferritin AST Alkaline Phosphatase Magnesium Lactate Dehydrogenase Total Creatine Kinase CK-MB (CK-2) C-Reactive Protein Total Protein Albumin Troponin T HDL Cholesterol Arterial Blood Glucose Urine WBC (Auto) Urine Creatinine Urine Total Protein Phenytoin Coronavirus (PCR) Crossmatch 06/05/20 06/05/20 06/05/20 05:39 07:25 07:25 WBC RBC 2.97 L Hgb 8.7 L Hct 25.7 L MCHC RDW 16.0 H Lymph % (Auto) 8.8 L [place] % (Auto) 13.3 H Eos % (Auto) Lymph # 0.8 L [place] # 1.3 H Lymph # (Auto) [place] # (Auto) Eos # (Auto) Seg Neutrophils % 77.3 H Seg Neuts % (Manual) Lymphocytes % (Manual) Seg Neutrophils # Seg Neutrophils # Man Lymphocytes # (Manual) Monocytes % (Manual) Eosinophils % (Manual) Monocytes # (Manual) Eosinophils # (Manual) D-Dimer Heparin Anti-Xa Level ABG pH POC ABG pCO2 POC ABG pO2 ABG pO2 ABG HCO3 ABG O2 Saturation ABG Base Excess ABG Hemoglobin ABG Oxyhemoglobin VBG pH ABG Sodium ABG Potassium ABG Glucose Oxyhemoglobin Sodium 133 L Potassium Chloride Carbon Dioxide 17 L BUN 89 H Creatinine 2.8 H Glucose 176 H POC Glucose 149 H Lactic Acid Calcium 7.7 L Ferritin AST Alkaline Phosphatase Magnesium Lactate Dehydrogenase Total Creatine Kinase CK-MB (CK-2) C-Reactive Protein Total Protein 4.2 L Albumin 1.9 L Troponin T HDL Cholesterol Arterial Blood Glucose Urine WBC (Auto) Urine Creatinine Urine Total Protein Phenytoin Coronavirus (PCR) Crossmatch 06/05/20 06/05/20 06/05/20 07:25 12:05 15:41 WBC RBC Hgb Hct MCHC RDW Lymph % (Auto) [place] % (Auto) Eos % (Auto) Lymph # [place] # Lymph # (Auto) [place] # (Auto) Eos # (Auto) Seg Neutrophils % Seg Neuts % (Manual) Lymphocytes % (Manual) Seg Neutrophils # Seg Neutrophils # Man Lymphocytes # (Manual) Monocytes % (Manual) Eosinophils % (Manual) Monocytes # (Manual) Eosinophils # (Manual) D-Dimer Heparin Anti-Xa Level 0.76 H 0.81 H ABG pH POC ABG pCO2 POC ABG pO2 ABG pO2 ABG HCO3 ABG O2 Saturation ABG Base Excess ABG Hemoglobin ABG Oxyhemoglobin VBG pH ABG Sodium ABG Potassium ABG Glucose Oxyhemoglobin Sodium Potassium Chloride Carbon Dioxide BUN Creatinine Glucose POC Glucose 198 H Lactic Acid Calcium Ferritin AST Alkaline Phosphatase Magnesium Lactate Dehydrogenase Total Creatine Kinase CK-MB (CK-2) C-Reactive Protein Total Protein Albumin Troponin T HDL Cholesterol Arterial Blood Glucose Urine WBC (Auto) Urine Creatinine Urine Total Protein Phenytoin Coronavirus (PCR) Crossmatch 06/05/20 06/05/20 06/06/20 18:08 23:25 04:00 WBC RBC Hgb Hct MCHC RDW Lymph % (Auto) [place] % (Auto) Eos % (Auto) Lymph # [place] # Lymph # (Auto) [place] # (Auto) Eos # (Auto) Seg Neutrophils % Seg Neuts % (Manual) Lymphocytes % (Manual) Seg Neutrophils # Seg Neutrophils # Man Lymphocytes # (Manual) Monocytes % (Manual) Eosinophils % (Manual) Monocytes # (Manual) Eosinophils # (Manual) D-Dimer Heparin Anti-Xa Level ABG pH POC ABG pCO2 POC ABG pO2 ABG pO2 ABG HCO3 ABG O2 Saturation ABG Base Excess ABG Hemoglobin ABG Oxyhemoglobin VBG pH ABG Sodium ABG Potassium ABG Glucose Oxyhemoglobin Sodium Potassium Chloride Carbon Dioxide BUN Creatinine Glucose POC Glucose 223 H 169 H Lactic Acid Calcium Ferritin AST Alkaline Phosphatase Magnesium Lactate Dehydrogenase Total Creatine Kinase CK-MB (CK-2) C-Reactive Protein Total Protein Albumin Troponin T HDL Cholesterol Arterial Blood Glucose Urine WBC (Auto) 15.0 H Urine Creatinine Urine Total Protein Phenytoin Coronavirus (PCR) Crossmatch 06/06/20 06/06/20 06/06/20 04:00 05:33 05:38 WBC RBC 2.97 L Hgb 8.7 L Hct 26.8 L MCHC RDW 16.8 H Lymph % (Auto) [place] % (Auto) Eos % (Auto) Lymph # [place] # Lymph # (Auto) [place] # (Auto) Eos # (Auto) Seg Neutrophils % Seg Neuts % (Manual) Lymphocytes % (Manual) Seg Neutrophils # Seg Neutrophils # Man Lymphocytes # (Manual) Monocytes % (Manual) Eosinophils % (Manual) Monocytes # (Manual) Eosinophils # (Manual) D-Dimer Heparin Anti-Xa Level ABG pH POC ABG pCO2 POC ABG pO2 ABG pO2 ABG HCO3 ABG O2 Saturation ABG Base Excess ABG Hemoglobin ABG Oxyhemoglobin VBG pH ABG Sodium ABG Potassium ABG Glucose Oxyhemoglobin Sodium Potassium Chloride Carbon Dioxide BUN Creatinine Glucose POC Glucose 186 H Lactic Acid Calcium Ferritin AST Alkaline Phosphatase Magnesium Lactate Dehydrogenase Total Creatine Kinase CK-MB (CK-2) C-Reactive Protein Total Protein Albumin Troponin T HDL Cholesterol Arterial Blood Glucose Urine WBC (Auto) Urine Creatinine 82.2 H Urine Total Protein 196 H Phenytoin Coronavirus (PCR) Crossmatch 06/06/20 06/06/20 06/06/20 05:38 12:25 17:03 WBC RBC Hgb Hct MCHC RDW Lymph % (Auto) [place] % (Auto) Eos % (Auto) Lymph # [place] # Lymph # (Auto) [place] # (Auto) Eos # (Auto) Seg Neutrophils % Seg Neuts % (Manual) Lymphocytes % (Manual) Seg Neutrophils # Seg Neutrophils # Man Lymphocytes # (Manual) Monocytes % (Manual) Eosinophils % (Manual) Monocytes # (Manual) Eosinophils # (Manual) D-Dimer Heparin Anti-Xa Level ABG pH POC ABG pCO2 POC ABG pO2 ABG pO2 ABG HCO3 ABG O2 Saturation ABG Base Excess ABG Hemoglobin ABG Oxyhemoglobin VBG pH ABG Sodium ABG Potassium ABG Glucose Oxyhemoglobin Sodium 134 L Potassium 5.2 H Chloride Carbon Dioxide 18 L BUN 97 H Creatinine 2.5 H Glucose 193 H POC Glucose 239 H 252 H Lactic Acid Calcium 7.5 L Ferritin AST Alkaline Phosphatase Magnesium Lactate Dehydrogenase Total Creatine Kinase CK-MB (CK-2) C-Reactive Protein Total Protein 4.1 L Albumin 1.9 L Troponin T HDL Cholesterol Arterial Blood Glucose Urine WBC (Auto) Urine Creatinine Urine Total Protein Phenytoin Coronavirus (PCR) Crossmatch 06/07/20 06/07/20 06/07/20 00:16 01:49 04:00 WBC RBC 2.91 L Hgb 8.4 L Hct 25.0 L MCHC RDW 16.1 H Lymph % (Auto) 5.7 L [place] % (Auto) 10.5 H Eos % (Auto) Lymph # 0.6 L [place] # 1.1 H Lymph # (Auto) [place] # (Auto) Eos # (Auto) Seg Neutrophils % 83.6 H Seg Neuts % (Manual) Lymphocytes % (Manual) Seg Neutrophils # 9.1 H Seg Neutrophils # Man Lymphocytes # (Manual) Monocytes % (Manual) Eosinophils % (Manual) Monocytes # (Manual) Eosinophils # (Manual) D-Dimer Heparin Anti-Xa Level 0.26 L ABG pH POC ABG pCO2 POC ABG pO2 ABG pO2 ABG HCO3 ABG O2 Saturation ABG Base Excess ABG Hemoglobin ABG Oxyhemoglobin VBG pH ABG Sodium ABG Potassium ABG Glucose Oxyhemoglobin Sodium Potassium Chloride Carbon Dioxide BUN Creatinine Glucose POC Glucose 173 H Lactic Acid Calcium Ferritin AST Alkaline Phosphatase Magnesium Lactate Dehydrogenase Total Creatine Kinase CK-MB (CK-2) C-Reactive Protein Total Protein Albumin Troponin T HDL Cholesterol Arterial Blood Glucose Urine WBC (Auto) Urine Creatinine Urine Total Protein Phenytoin Coronavirus (PCR) Crossmatch 06/07/20 06/07/20 06/07/20 04:00 04:54 05:51 WBC RBC Hgb Hct MCHC RDW Lymph % (Auto) [place] % (Auto) Eos % (Auto) Lymph # [place] # Lymph # (Auto) [place] # (Auto) Eos # (Auto) Seg Neutrophils % Seg Neuts % (Manual) Lymphocytes % (Manual) Seg Neutrophils # Seg Neutrophils # Man Lymphocytes # (Manual) Monocytes % (Manual) Eosinophils % (Manual) Monocytes # (Manual) Eosinophils # (Manual) D-Dimer Heparin Anti-Xa Level ABG pH 7.317 L POC ABG pCO2 POC ABG pO2 ABG pO2 71.4 L ABG HCO3 ABG O2 Saturation 94.3 L ABG Base Excess -4.8 L ABG Hemoglobin 7.1 L ABG Oxyhemoglobin VBG pH ABG Sodium ABG Potassium ABG Glucose Oxyhemoglobin 92.2 L Sodium 133 L Potassium Chloride Carbon Dioxide 18 L BUN 100 H Creatinine 2.5 H Glucose 158 H POC Glucose 168 H Lactic Acid Calcium 7.6 L Ferritin AST Alkaline Phosphatase Magnesium Lactate Dehydrogenase Total Creatine Kinase CK-MB (CK-2) C-Reactive Protein Total Protein 4.7 L Albumin 2.0 L Troponin T HDL Cholesterol Arterial Blood Glucose Urine WBC (Auto) Urine Creatinine Urine Total Protein Phenytoin Coronavirus (PCR) Crossmatch 06/07/20 06/07/20 06/07/20 12:03 17:17 20:10 WBC RBC Hgb Hct MCHC RDW Lymph % (Auto) [place] % (Auto) Eos % (Auto) Lymph # [place] # Lymph # (Auto) [place] # (Auto) Eos # (Auto) Seg Neutrophils % Seg Neuts % (Manual) Lymphocytes % (Manual) Seg Neutrophils # Seg Neutrophils # Man Lymphocytes # (Manual) Monocytes % (Manual) Eosinophils % (Manual) Monocytes # (Manual) Eosinophils # (Manual) D-Dimer Heparin Anti-Xa Level 0.17 L ABG pH POC ABG pCO2 POC ABG pO2 ABG pO2 ABG HCO3 ABG O2 Saturation ABG Base Excess ABG Hemoglobin ABG Oxyhemoglobin VBG pH ABG Sodium ABG Potassium ABG Glucose Oxyhemoglobin Sodium Potassium Chloride Carbon Dioxide BUN Creatinine Glucose POC Glucose 276 H 281 H Lactic Acid Calcium Ferritin AST Alkaline Phosphatase Magnesium Lactate Dehydrogenase Total Creatine Kinase CK-MB (CK-2) C-Reactive Protein Total Protein Albumin Troponin T HDL Cholesterol Arterial Blood Glucose Urine WBC (Auto) Urine Creatinine Urine Total Protein Phenytoin Coronavirus (PCR) Crossmatch 06/08/20 06/08/20 06/08/20 00:02 04:47 04:47 WBC 16.4 H RBC 3.07 L Hgb 8.6 L Hct 26.5 L MCHC RDW 16.3 H Lymph % (Auto) [place] % (Auto) Eos % (Auto) Lymph # [place] # Lymph # (Auto) [place] # (Auto) Eos # (Auto) Seg Neutrophils % Seg Neuts % (Manual) 90.0 H Lymphocytes % (Manual) 3.0 L Seg Neutrophils # Seg Neutrophils # Man 14.8 H Lymphocytes # (Manual) 0.5 L Monocytes % (Manual) Eosinophils % (Manual) Monocytes # (Manual) 1.1 H Eosinophils # (Manual) D-Dimer Heparin Anti-Xa Level ABG pH POC ABG pCO2 POC ABG pO2 ABG pO2 ABG HCO3 ABG O2 Saturation ABG Base Excess ABG Hemoglobin ABG Oxyhemoglobin VBG pH ABG Sodium ABG Potassium ABG Glucose Oxyhemoglobin Sodium 129 L Potassium Chloride 95.6 L Carbon Dioxide 17 L BUN 106 H Creatinine 2.5 H Glucose 213 H POC Glucose 242 H Lactic Acid Calcium 7.6 L Ferritin AST Alkaline Phosphatase Magnesium Lactate Dehydrogenase Total Creatine Kinase CK-MB (CK-2) C-Reactive Protein Total Protein 5.0 L Albumin 2.1 L Troponin T HDL Cholesterol Arterial Blood Glucose Urine WBC (Auto) Urine Creatinine Urine Total Protein Phenytoin Coronavirus (PCR) Crossmatch 06/08/20 06/08/20 06/08/20 05:40 11:55 17:54 WBC RBC Hgb Hct MCHC RDW Lymph % (Auto) [place] % (Auto) Eos % (Auto) Lymph # [place] # Lymph # (Auto) [place] # (Auto) Eos # (Auto) Seg Neutrophils % Seg Neuts % (Manual) Lymphocytes % (Manual) Seg Neutrophils # Seg Neutrophils # Man Lymphocytes # (Manual) Monocytes % (Manual) Eosinophils % (Manual) Monocytes # (Manual) Eosinophils # (Manual) D-Dimer Heparin Anti-Xa Level ABG pH POC ABG pCO2 POC ABG pO2 ABG pO2 ABG HCO3 ABG O2 Saturation ABG Base Excess ABG Hemoglobin ABG Oxyhemoglobin VBG pH ABG Sodium ABG Potassium ABG Glucose Oxyhemoglobin Sodium Potassium Chloride Carbon Dioxide BUN Creatinine Glucose POC Glucose 221 H 218 H 163 H Lactic Acid Calcium Ferritin AST Alkaline Phosphatase Magnesium Lactate Dehydrogenase Total Creatine Kinase CK-MB (CK-2) C-Reactive Protein Total Protein Albumin Troponin T HDL Cholesterol Arterial Blood Glucose Urine WBC (Auto) Urine Creatinine Urine Total Protein Phenytoin Coronavirus (PCR) Crossmatch 06/08/20 06/09/20 06/09/20 22:01 00:09 05:16 WBC 19.0 H RBC 3.35 L Hgb 9.2 L Hct 28.5 L MCHC RDW 16.3 H Lymph % (Auto) [place] % (Auto) Eos % (Auto) Lymph # [place] # Lymph # (Auto) [place] # (Auto) Eos # (Auto) Seg Neutrophils % Seg Neuts % (Manual) 85.0 H Lymphocytes % (Manual) 7.0 L Seg Neutrophils # Seg Neutrophils # Man 16.2 H Lymphocytes # (Manual) Monocytes % (Manual) Eosinophils % (Manual) Monocytes # (Manual) 1.3 H Eosinophils # (Manual) D-Dimer Heparin Anti-Xa Level ABG pH POC ABG pCO2 POC ABG pO2 ABG pO2 ABG HCO3 ABG O2 Saturation ABG Base Excess ABG Hemoglobin ABG Oxyhemoglobin VBG pH ABG Sodium ABG Potassium ABG Glucose Oxyhemoglobin Sodium Potassium Chloride Carbon Dioxide BUN Creatinine Glucose POC Glucose 182 H 150 H Lactic Acid Calcium Ferritin AST Alkaline Phosphatase Magnesium Lactate Dehydrogenase Total Creatine Kinase CK-MB (CK-2) C-Reactive Protein Total Protein Albumin Troponin T HDL Cholesterol Arterial Blood Glucose Urine WBC (Auto) Urine Creatinine Urine Total Protein Phenytoin Coronavirus (PCR) Crossmatch 06/09/20 06/09/20 06/09/20 05:16 05:24 11:29 WBC RBC Hgb Hct MCHC RDW Lymph % (Auto) [place] % (Auto) Eos % (Auto) Lymph # [place] # Lymph # (Auto) [place] # (Auto) Eos # (Auto) Seg Neutrophils % Seg Neuts % (Manual) Lymphocytes % (Manual) Seg Neutrophils # Seg Neutrophils # Man Lymphocytes # (Manual) Monocytes % (Manual) Eosinophils % (Manual) Monocytes # (Manual) Eosinophils # (Manual) D-Dimer Heparin Anti-Xa Level ABG pH POC ABG pCO2 POC ABG pO2 ABG pO2 ABG HCO3 ABG O2 Saturation ABG Base Excess ABG Hemoglobin ABG Oxyhemoglobin VBG pH ABG Sodium ABG Potassium ABG Glucose Oxyhemoglobin Sodium 133 L Potassium Chloride Carbon Dioxide 19 L BUN 109 H Creatinine 2.1 H Glucose 133 H POC Glucose 128 H 119 H Lactic Acid Calcium 7.7 L Ferritin AST Alkaline Phosphatase < 5 L Magnesium Lactate Dehydrogenase Total Creatine Kinase CK-MB (CK-2) C-Reactive Protein Total Protein 4.6 L Albumin < 0.2 L Troponin T HDL Cholesterol Arterial Blood Glucose Urine WBC (Auto) Urine Creatinine Urine Total Protein Phenytoin Coronavirus (PCR) Crossmatch 06/09/20 06/10/20 06/10/20 17:32 00:00 05:49 WBC RBC Hgb Hct MCHC RDW Lymph % (Auto) [place] % (Auto) Eos % (Auto) Lymph # [place] # Lymph # (Auto) [place] # (Auto) Eos # (Auto) Seg Neutrophils % Seg Neuts % (Manual) Lymphocytes % (Manual) Seg Neutrophils # Seg Neutrophils # Man Lymphocytes # (Manual) Monocytes % (Manual) Eosinophils % (Manual) Monocytes # (Manual) Eosinophils # (Manual) D-Dimer Heparin Anti-Xa Level 0.19 L ABG pH POC ABG pCO2 POC ABG pO2 ABG pO2 ABG HCO3 ABG O2 Saturation ABG Base Excess ABG Hemoglobin ABG Oxyhemoglobin VBG pH ABG Sodium ABG Potassium ABG Glucose Oxyhemoglobin Sodium Potassium Chloride Carbon Dioxide BUN Creatinine Glucose POC Glucose 106 H 117 H Lactic Acid Calcium Ferritin AST Alkaline Phosphatase Magnesium Lactate Dehydrogenase Total Creatine Kinase CK-MB (CK-2) C-Reactive Protein Total Protein Albumin Troponin T HDL Cholesterol Arterial Blood Glucose Urine WBC (Auto) Urine Creatinine Urine Total Protein Phenytoin Coronavirus (PCR) Crossmatch 06/10/20 06/10/20 06/10/20 05:54 07:40 11:40 WBC RBC Hgb Hct MCHC RDW Lymph % (Auto) [place] % (Auto) Eos % (Auto) Lymph # [place] # Lymph # (Auto) [place] # (Auto) Eos # (Auto) Seg Neutrophils % Seg Neuts % (Manual) Lymphocytes % (Manual) Seg Neutrophils # Seg Neutrophils # Man Lymphocytes # (Manual) Monocytes % (Manual) Eosinophils % (Manual) Monocytes # (Manual) Eosinophils # (Manual) D-Dimer Heparin Anti-Xa Level ABG pH POC ABG pCO2 POC ABG pO2 ABG pO2 ABG HCO3 ABG O2 Saturation ABG Base Excess ABG Hemoglobin ABG Oxyhemoglobin VBG pH ABG Sodium ABG Potassium ABG Glucose Oxyhemoglobin Sodium 146 H D Potassium Chloride Carbon Dioxide 20 L BUN 99 H Creatinine 1.9 H Glucose 121 H POC Glucose 127 H 138 H Lactic Acid Calcium 8.2 L Ferritin AST Alkaline Phosphatase Magnesium Lactate Dehydrogenase Total Creatine Kinase CK-MB (CK-2) C-Reactive Protein Total Protein Albumin Troponin T HDL Cholesterol Arterial Blood Glucose Urine WBC (Auto) Urine Creatinine Urine Total Protein Phenytoin Coronavirus (PCR) Crossmatch 06/10/20 06/10/20 06/10/20 14:44 17:31 23:22 WBC RBC Hgb Hct MCHC RDW Lymph % (Auto) [place] % (Auto) Eos % (Auto) Lymph # [place] # Lymph # (Auto) [place] # (Auto) Eos # (Auto) Seg Neutrophils % Seg Neuts % (Manual) Lymphocytes % (Manual) Seg Neutrophils # Seg Neutrophils # Man Lymphocytes # (Manual) Monocytes % (Manual) Eosinophils % (Manual) Monocytes # (Manual) Eosinophils # (Manual) D-Dimer Heparin Anti-Xa Level 0.17 L ABG pH POC ABG pCO2 POC ABG pO2 ABG pO2 ABG HCO3 ABG O2 Saturation ABG Base Excess ABG Hemoglobin ABG Oxyhemoglobin VBG pH ABG Sodium ABG Potassium ABG Glucose Oxyhemoglobin Sodium Potassium Chloride Carbon Dioxide BUN Creatinine Glucose POC Glucose 128 H 114 H Lactic Acid Calcium Ferritin AST Alkaline Phosphatase Magnesium Lactate Dehydrogenase Total Creatine Kinase CK-MB (CK-2) C-Reactive Protein Total Protein Albumin Troponin T HDL Cholesterol Arterial Blood Glucose Urine WBC (Auto) Urine Creatinine Urine Total Protein Phenytoin Coronavirus (PCR) Crossmatch 06/11/20 06/11/20 06/11/20 00:22 03:45 03:45 WBC 14.6 H RBC 2.77 L Hgb 7.9 L Hct 24.3 L MCHC RDW 16.8 H Lymph % (Auto) 6.6 L [place] % (Auto) 8.5 H Eos % (Auto) Lymph # 1.0 L [place] # 1.2 H Lymph # (Auto) [place] # (Auto) Eos # (Auto) Seg Neutrophils % 82.9 H Seg Neuts % (Manual) Lymphocytes % (Manual) Seg Neutrophils # 12.1 H Seg Neutrophils # Man Lymphocytes # (Manual) Monocytes % (Manual) Eosinophils % (Manual) Monocytes # (Manual) Eosinophils # (Manual) D-Dimer Heparin Anti-Xa Level 0.24 L ABG pH POC ABG pCO2 POC ABG pO2 ABG pO2 ABG HCO3 ABG O2 Saturation ABG Base Excess ABG Hemoglobin ABG Oxyhemoglobin VBG pH ABG Sodium ABG Potassium ABG Glucose Oxyhemoglobin Sodium Potassium Chloride Carbon Dioxide 20 L BUN 88 H Creatinine 1.5 H Glucose 111 H POC Glucose Lactic Acid Calcium 8.2 L Ferritin AST Alkaline Phosphatase Magnesium Lactate Dehydrogenase Total Creatine Kinase CK-MB (CK-2) C-Reactive Protein Total Protein Albumin Troponin T HDL Cholesterol Arterial Blood Glucose Urine WBC (Auto) Urine Creatinine Urine Total Protein Phenytoin Coronavirus (PCR) Crossmatch 06/11/20 06/11/20 06/11/20 06:03 10:22 11:11 WBC RBC Hgb Hct MCHC RDW Lymph % (Auto) [place] % (Auto) Eos % (Auto) Lymph # [place] # Lymph # (Auto) [place] # (Auto) Eos # (Auto) Seg Neutrophils % Seg Neuts % (Manual) Lymphocytes % (Manual) Seg Neutrophils # Seg Neutrophils # Man Lymphocytes # (Manual) Monocytes % (Manual) Eosinophils % (Manual) Monocytes # (Manual) Eosinophils # (Manual) D-Dimer Heparin Anti-Xa Level 0.26 L ABG pH POC ABG pCO2 POC ABG pO2 ABG pO2 ABG HCO3 ABG O2 Saturation ABG Base Excess ABG Hemoglobin 9.6 L ABG Oxyhemoglobin VBG pH ABG Sodium ABG Potassium ABG Glucose Oxyhemoglobin Sodium Potassium Chloride Carbon Dioxide BUN Creatinine Glucose POC Glucose 114 H Lactic Acid Calcium Ferritin AST Alkaline Phosphatase Magnesium Lactate Dehydrogenase Total Creatine Kinase CK-MB (CK-2) C-Reactive Protein Total Protein Albumin Troponin T HDL Cholesterol Arterial Blood Glucose Urine WBC (Auto) Urine Creatinine Urine Total Protein Phenytoin Coronavirus (PCR) Crossmatch 06/11/20 06/11/20 06/12/20 12:24 17:24 00:21 WBC RBC Hgb Hct MCHC RDW Lymph % (Auto) [place] % (Auto) Eos % (Auto) Lymph # [place] # Lymph # (Auto) [place] # (Auto) Eos # (Auto) Seg Neutrophils % Seg Neuts % (Manual) Lymphocytes % (Manual) Seg Neutrophils # Seg Neutrophils # Man Lymphocytes # (Manual) Monocytes % (Manual) Eosinophils % (Manual) Monocytes # (Manual) Eosinophils # (Manual) D-Dimer Heparin Anti-Xa Level ABG pH POC ABG pCO2 POC ABG pO2 ABG pO2 ABG HCO3 ABG O2 Saturation ABG Base Excess ABG Hemoglobin ABG Oxyhemoglobin VBG pH ABG Sodium ABG Potassium ABG Glucose Oxyhemoglobin Sodium Potassium Chloride Carbon Dioxide BUN Creatinine Glucose POC Glucose 119 H 126 H 117 H Lactic Acid Calcium Ferritin AST Alkaline Phosphatase Magnesium Lactate Dehydrogenase Total Creatine Kinase CK-MB (CK-2) C-Reactive Protein Total Protein Albumin Troponin T HDL Cholesterol Arterial Blood Glucose Urine WBC (Auto) Urine Creatinine Urine Total Protein Phenytoin Coronavirus (PCR) Crossmatch 06/12/20 06/12/20 06/12/20 02:46 02:46 05:46 WBC 13.2 H RBC 2.83 L Hgb 8.3 L Hct 24.3 L MCHC RDW 16.6 H Lymph % (Auto) 6.2 L [place] % (Auto) 9.5 H Eos % (Auto) Lymph # 0.8 L [place] # 1.3 H Lymph # (Auto) [place] # (Auto) Eos # (Auto) Seg Neutrophils % 81.9 H Seg Neuts % (Manual) Lymphocytes % (Manual) Seg Neutrophils # 10.9 H Seg Neutrophils # Man Lymphocytes # (Manual) Monocytes % (Manual) Eosinophils % (Manual) Monocytes # (Manual) Eosinophils # (Manual) D-Dimer Heparin Anti-Xa Level ABG pH POC ABG pCO2 POC ABG pO2 ABG pO2 ABG HCO3 ABG O2 Saturation ABG Base Excess ABG Hemoglobin ABG Oxyhemoglobin VBG pH ABG Sodium ABG Potassium ABG Glucose Oxyhemoglobin Sodium Potassium 3.5 L Chloride Carbon Dioxide BUN 77 H Creatinine 1.3 H Glucose POC Glucose 132 H Lactic Acid Calcium 8.3 L Ferritin AST Alkaline Phosphatase Magnesium Lactate Dehydrogenase Total Creatine Kinase CK-MB (CK-2) C-Reactive Protein Total Protein Albumin Troponin T HDL Cholesterol Arterial Blood Glucose Urine WBC (Auto) Urine Creatinine Urine Total Protein Phenytoin Coronavirus (PCR) Crossmatch 06/12/20 06/12/20 06/12/20 09:20 12:16 17:48 WBC RBC Hgb Hct MCHC RDW Lymph % (Auto) [place] % (Auto) Eos % (Auto) Lymph # [place] # Lymph # (Auto) [place] # (Auto) Eos # (Auto) Seg Neutrophils % Seg Neuts % (Manual) Lymphocytes % (Manual) Seg Neutrophils # Seg Neutrophils # Man Lymphocytes # (Manual) Monocytes % (Manual) Eosinophils % (Manual) Monocytes # (Manual) Eosinophils # (Manual) D-Dimer Heparin Anti-Xa Level ABG pH POC ABG pCO2 POC ABG pO2 ABG pO2 91.1 H ABG HCO3 ABG O2 Saturation ABG Base Excess ABG Hemoglobin ABG Oxyhemoglobin VBG pH ABG Sodium ABG Potassium ABG Glucose Oxyhemoglobin 94.8 L Sodium Potassium Chloride Carbon Dioxide BUN Creatinine Glucose POC Glucose 167 H 182 H Lactic Acid Calcium Ferritin AST Alkaline Phosphatase Magnesium Lactate Dehydrogenase Total Creatine Kinase CK-MB (CK-2) C-Reactive Protein Total Protein Albumin Troponin T HDL Cholesterol Arterial Blood Glucose Urine WBC (Auto) Urine Creatinine Urine Total Protein Phenytoin Coronavirus (PCR) Crossmatch 06/13/20 06/13/20 06/13/20 00:08 05:37 09:09 WBC RBC Hgb Hct MCHC RDW Lymph % (Auto) [place] % (Auto) Eos % (Auto) Lymph # [place] # Lymph # (Auto) [place] # (Auto) Eos # (Auto) Seg Neutrophils % Seg Neuts % (Manual) Lymphocytes % (Manual) Seg Neutrophils # Seg Neutrophils # Man Lymphocytes # (Manual) Monocytes % (Manual) Eosinophils % (Manual) Monocytes # (Manual) Eosinophils # (Manual) D-Dimer Heparin Anti-Xa Level 0.86 H ABG pH POC ABG pCO2 POC ABG pO2 ABG pO2 ABG HCO3 ABG O2 Saturation ABG Base Excess ABG Hemoglobin ABG Oxyhemoglobin VBG pH ABG Sodium ABG Potassium ABG Glucose Oxyhemoglobin Sodium Potassium Chloride Carbon Dioxide BUN Creatinine Glucose POC Glucose 142 H 119 H Lactic Acid Calcium Ferritin AST Alkaline Phosphatase Magnesium Lactate Dehydrogenase Total Creatine Kinase CK-MB (CK-2) C-Reactive Protein Total Protein Albumin Troponin T HDL Cholesterol Arterial Blood Glucose Urine WBC (Auto) Urine Creatinine Urine Total Protein Phenytoin Coronavirus (PCR) Crossmatch 06/13/20 06/13/20 06/13/20 12:28 17:55 21:17 WBC RBC Hgb Hct MCHC RDW Lymph % (Auto) [place] % (Auto) Eos % (Auto) Lymph # [place] # Lymph # (Auto) [place] # (Auto) Eos # (Auto) Seg Neutrophils % Seg Neuts % (Manual) Lymphocytes % (Manual) Seg Neutrophils # Seg Neutrophils # Man Lymphocytes # (Manual) Monocytes % (Manual) Eosinophils % (Manual) Monocytes # (Manual) Eosinophils # (Manual) D-Dimer Heparin Anti-Xa Level ABG pH POC ABG pCO2 POC ABG pO2 ABG pO2 ABG HCO3 ABG O2 Saturation ABG Base Excess ABG Hemoglobin ABG Oxyhemoglobin VBG pH ABG Sodium ABG Potassium ABG Glucose Oxyhemoglobin Sodium Potassium Chloride Carbon Dioxide BUN 61 H Creatinine Glucose 131 H POC Glucose 165 H 174 H Lactic Acid Calcium Ferritin AST Alkaline Phosphatase Magnesium Lactate Dehydrogenase Total Creatine Kinase CK-MB (CK-2) C-Reactive Protein Total Protein Albumin Troponin T HDL Cholesterol Arterial Blood Glucose Urine WBC (Auto) Urine Creatinine Urine Total Protein Phenytoin Coronavirus (PCR) Crossmatch 06/13/20 06/13/20 06/14/20 21:17 23:50 05:34 WBC RBC Hgb Hct MCHC RDW Lymph % (Auto) [place] % (Auto) Eos % (Auto) Lymph # [place] # Lymph # (Auto) [place] # (Auto) Eos # (Auto) Seg Neutrophils % Seg Neuts % (Manual) Lymphocytes % (Manual) Seg Neutrophils # Seg Neutrophils # Man Lymphocytes # (Manual) Monocytes % (Manual) Eosinophils % (Manual) Monocytes # (Manual) Eosinophils # (Manual) D-Dimer Heparin Anti-Xa Level 0.72 H ABG pH POC ABG pCO2 POC ABG pO2 ABG pO2 ABG HCO3 ABG O2 Saturation ABG Base Excess ABG Hemoglobin ABG Oxyhemoglobin VBG pH ABG Sodium ABG Potassium ABG Glucose Oxyhemoglobin Sodium 146 H Potassium Chloride 107.6 H Carbon Dioxide BUN 61 H Creatinine 1.3 H Glucose 135 H POC Glucose 146 H Lactic Acid Calcium Ferritin AST Alkaline Phosphatase Magnesium Lactate Dehydrogenase Total Creatine Kinase CK-MB (CK-2) C-Reactive Protein Total Protein Albumin Troponin T HDL Cholesterol Arterial Blood Glucose Urine WBC (Auto) Urine Creatinine Urine Total Protein Phenytoin Coronavirus (PCR) Crossmatch 06/14/20 06/14/20 06/14/20 06:11 09:28 11:30 WBC RBC Hgb Hct MCHC RDW Lymph % (Auto) [place] % (Auto) Eos % (Auto) Lymph # [place] # Lymph # (Auto) [place] # (Auto) Eos # (Auto) Seg Neutrophils % Seg Neuts % (Manual) Lymphocytes % (Manual) Seg Neutrophils # Seg Neutrophils # Man Lymphocytes # (Manual) Monocytes % (Manual) Eosinophils % (Manual) Monocytes # (Manual) Eosinophils # (Manual) D-Dimer Heparin Anti-Xa Level 0.90 H ABG pH POC ABG pCO2 POC ABG pO2 ABG pO2 ABG HCO3 ABG O2 Saturation ABG Base Excess ABG Hemoglobin ABG Oxyhemoglobin VBG pH ABG Sodium ABG Potassium ABG Glucose Oxyhemoglobin Sodium Potassium Chloride Carbon Dioxide BUN Creatinine Glucose POC Glucose 141 H 186 H Lactic Acid Calcium Ferritin AST Alkaline Phosphatase Magnesium Lactate Dehydrogenase Total Creatine Kinase CK-MB (CK-2) C-Reactive Protein Total Protein Albumin Troponin T HDL Cholesterol Arterial Blood Glucose Urine WBC (Auto) Urine Creatinine Urine Total Protein Phenytoin Coronavirus (PCR) Crossmatch 06/14/20 06/14/20 06/14/20 16:07 18:16 23:51 WBC RBC Hgb Hct MCHC RDW Lymph % (Auto) [place] % (Auto) Eos % (Auto) Lymph # [place] # Lymph # (Auto) [place] # (Auto) Eos # (Auto) Seg Neutrophils % Seg Neuts % (Manual) Lymphocytes % (Manual) Seg Neutrophils # Seg Neutrophils # Man Lymphocytes # (Manual) Monocytes % (Manual) Eosinophils % (Manual) Monocytes # (Manual) Eosinophils # (Manual) D-Dimer Heparin Anti-Xa Level 0.82 H ABG pH POC ABG pCO2 POC ABG pO2 ABG pO2 ABG HCO3 ABG O2 Saturation ABG Base Excess ABG Hemoglobin ABG Oxyhemoglobin VBG pH ABG Sodium ABG Potassium ABG Glucose Oxyhemoglobin Sodium Potassium Chloride Carbon Dioxide BUN Creatinine Glucose POC Glucose 106 H 154 H Lactic Acid Calcium Ferritin AST Alkaline Phosphatase Magnesium Lactate Dehydrogenase Total Creatine Kinase CK-MB (CK-2) C-Reactive Protein Total Protein Albumin Troponin T HDL Cholesterol Arterial Blood Glucose Urine WBC (Auto) Urine Creatinine Urine Total Protein Phenytoin Coronavirus (PCR) Crossmatch 06/15/20 06/15/20 06/15/20 04:24 04:24 05:59 WBC RBC 2.75 L Hgb 7.9 L Hct 24.0 L MCHC RDW 16.4 H Lymph % (Auto) 12.9 L [place] % (Auto) 8.7 H Eos % (Auto) 4.6 H Lymph # 1.1 L [place] # Lymph # (Auto) [place] # (Auto) Eos # (Auto) Seg Neutrophils % 73.2 H Seg Neuts % (Manual) Lymphocytes % (Manual) Seg Neutrophils # Seg Neutrophils # Man Lymphocytes # (Manual) Monocytes % (Manual) Eosinophils % (Manual) Monocytes # (Manual) Eosinophils # (Manual) D-Dimer Heparin Anti-Xa Level ABG pH POC ABG pCO2 POC ABG pO2 ABG pO2 ABG HCO3 ABG O2 Saturation ABG Base Excess ABG Hemoglobin ABG Oxyhemoglobin VBG pH ABG Sodium ABG Potassium ABG Glucose Oxyhemoglobin Sodium Potassium 3.4 L Chloride Carbon Dioxide BUN 55 H Creatinine 1.3 H Glucose 142 H POC Glucose 131 H Lactic Acid Calcium Ferritin AST Alkaline Phosphatase Magnesium Lactate Dehydrogenase Total Creatine Kinase CK-MB (CK-2) C-Reactive Protein Total Protein Albumin Troponin T HDL Cholesterol Arterial Blood Glucose Urine WBC (Auto) Urine Creatinine Urine Total Protein Phenytoin Coronavirus (PCR) Crossmatch 06/15/20 06/15/2020 12:33 17:07 00:22 WBC RBC Hgb Hct MCHC RDW Lymph % (Auto) [place] % (Auto) Eos % (Auto) Lymph # [place] # Lymph # (Auto) [place] # (Auto) Eos # (Auto) Seg Neutrophils % Seg Neuts % (Manual) Lymphocytes % (Manual) Seg Neutrophils # Seg Neutrophils # Man Lymphocytes # (Manual) Monocytes % (Manual) Eosinophils % (Manual) Monocytes # (Manual) Eosinophils # (Manual) D-Dimer Heparin Anti-Xa Level 0.21 L ABG pH POC ABG pCO2 POC ABG pO2 ABG pO2 ABG HCO3 ABG O2 Saturation ABG Base Excess ABG Hemoglobin ABG Oxyhemoglobin VBG pH ABG Sodium ABG Potassium ABG Glucose Oxyhemoglobin Sodium Potassium Chloride Carbon Dioxide BUN Creatinine Glucose POC Glucose 180 H 185 H Lactic Acid Calcium Ferritin AST Alkaline Phosphatase Magnesium Lactate Dehydrogenase Total Creatine Kinase CK-MB (CK-2) C-Reactive Protein Total Protein Albumin Troponin T HDL Cholesterol Arterial Blood Glucose Urine WBC (Auto) Urine Creatinine Urine Total Protein Phenytoin Coronavirus (PCR) Crossmatch 06/16/20 06/16/20 06/16/20 01:45 08:06 09:15 WBC RBC Hgb Hct MCHC RDW Lymph % (Auto) [place] % (Auto) Eos % (Auto) Lymph # [place] # Lymph # (Auto) [place] # (Auto) Eos # (Auto) Seg Neutrophils % Seg Neuts % (Manual) Lymphocytes % (Manual) Seg Neutrophils # Seg Neutrophils # Man Lymphocytes # (Manual) Monocytes % (Manual) Eosinophils % (Manual) Monocytes # (Manual) Eosinophils # (Manual) D-Dimer Heparin Anti-Xa Level ABG pH POC ABG pCO2 POC ABG pO2 ABG pO2 ABG HCO3 ABG O2 Saturation ABG Base Excess ABG Hemoglobin ABG Oxyhemoglobin VBG pH ABG Sodium ABG Potassium ABG Glucose Oxyhemoglobin Sodium Potassium Chloride Carbon Dioxide BUN 49 H Creatinine Glucose 154 H POC Glucose 140 H 171 H Lactic Acid Calcium Ferritin AST Alkaline Phosphatase Magnesium Lactate Dehydrogenase Total Creatine Kinase CK-MB (CK-2) C-Reactive Protein Total Protein Albumin Troponin T HDL Cholesterol Arterial Blood Glucose Urine WBC (Auto) Urine Creatinine Urine Total Protein Phenytoin Coronavirus (PCR) Crossmatch 06/16/20 06/16/20 06/16/20 10:46 12:33 17:54 WBC RBC Hgb Hct MCHC RDW Lymph % (Auto) [place] % (Auto) Eos % (Auto) Lymph # [place] # Lymph # (Auto) [place] # (Auto) Eos # (Auto) Seg Neutrophils % Seg Neuts % (Manual) Lymphocytes % (Manual) Seg Neutrophils # Seg Neutrophils # Man Lymphocytes # (Manual) Monocytes % (Manual) Eosinophils % (Manual) Monocytes # (Manual) Eosinophils # (Manual) D-Dimer Heparin Anti-Xa Level 0.12 L ABG pH POC ABG pCO2 POC ABG pO2 ABG pO2 ABG HCO3 ABG O2 Saturation ABG Base Excess ABG Hemoglobin ABG Oxyhemoglobin VBG pH ABG Sodium ABG Potassium ABG Glucose Oxyhemoglobin Sodium Potassium Chloride Carbon Dioxide BUN Creatinine Glucose POC Glucose 166 H 151 H Lactic Acid Calcium Ferritin AST Alkaline Phosphatase Magnesium Lactate Dehydrogenase Total Creatine Kinase CK-MB (CK-2) C-Reactive Protein Total Protein Albumin Troponin T HDL Cholesterol Arterial Blood Glucose Urine WBC (Auto) Urine Creatinine Urine Total Protein Phenytoin Coronavirus (PCR) Crossmatch 06/16/20 06/17/20 06/17/20 18:47 00:00 02:19 WBC RBC Hgb Hct MCHC RDW Lymph % (Auto) [place] % (Auto) Eos % (Auto) Lymph # [place] # Lymph # (Auto) [place] # (Auto) Eos # (Auto) Seg Neutrophils % Seg Neuts % (Manual) Lymphocytes % (Manual) Seg Neutrophils # Seg Neutrophils # Man Lymphocytes # (Manual) Monocytes % (Manual) Eosinophils % (Manual) Monocytes # (Manual) Eosinophils # (Manual) D-Dimer Heparin Anti-Xa Level 0.73 H 0.77 H ABG pH POC ABG pCO2 POC ABG pO2 ABG pO2 ABG HCO3 ABG O2 Saturation ABG Base Excess ABG Hemoglobin ABG Oxyhemoglobin VBG pH ABG Sodium ABG Potassium ABG Glucose Oxyhemoglobin Sodium Potassium Chloride Carbon Dioxide BUN Creatinine Glucose POC Glucose 139 H Lactic Acid Calcium Ferritin AST Alkaline Phosphatase Magnesium Lactate Dehydrogenase Total Creatine Kinase CK-MB (CK-2) C-Reactive Protein Total Protein Albumin Troponin T HDL Cholesterol Arterial Blood Glucose Urine WBC (Auto) Urine Creatinine Urine Total Protein Phenytoin Coronavirus (PCR) Crossmatch 06/17/20 06/17/20 06/17/20 06:07 11:42 16:43 WBC RBC Hgb Hct MCHC RDW Lymph % (Auto) [place] % (Auto) Eos % (Auto) Lymph # [place] # Lymph # (Auto) [place] # (Auto) Eos # (Auto) Seg Neutrophils % Seg Neuts % (Manual) Lymphocytes % (Manual) Seg Neutrophils # Seg Neutrophils # Man Lymphocytes # (Manual) Monocytes % (Manual) Eosinophils % (Manual) Monocytes # (Manual) Eosinophils # (Manual) D-Dimer Heparin Anti-Xa Level 0.73 H ABG pH POC ABG pCO2 POC ABG pO2 ABG pO2 ABG HCO3 ABG O2 Saturation ABG Base Excess ABG Hemoglobin ABG Oxyhemoglobin VBG pH ABG Sodium ABG Potassium ABG Glucose Oxyhemoglobin Sodium Potassium Chloride Carbon Dioxide BUN Creatinine Glucose POC Glucose 169 H 169 H Lactic Acid Calcium Ferritin AST Alkaline Phosphatase Magnesium Lactate Dehydrogenase Total Creatine Kinase CK-MB (CK-2) C-Reactive Protein Total Protein Albumin Troponin T HDL Cholesterol Arterial Blood Glucose Urine WBC (Auto) Urine Creatinine Urine Total Protein Phenytoin Coronavirus (PCR) Crossmatch 06/17/20 06/17/20 06/17/20 18:18 23:08 23:16 WBC RBC Hgb Hct MCHC RDW Lymph % (Auto) [place] % (Auto) Eos % (Auto) Lymph # [place] # Lymph # (Auto) [place] # (Auto) Eos # (Auto) Seg Neutrophils % Seg Neuts % (Manual) Lymphocytes % (Manual) Seg Neutrophils # Seg Neutrophils # Man Lymphocytes # (Manual) Monocytes % (Manual) Eosinophils % (Manual) Monocytes # (Manual) Eosinophils # (Manual) D-Dimer Heparin Anti-Xa Level 0.71 H ABG pH POC ABG pCO2 POC ABG pO2 ABG pO2 ABG HCO3 ABG O2 Saturation ABG Base Excess ABG Hemoglobin ABG Oxyhemoglobin VBG pH ABG Sodium ABG Potassium ABG Glucose Oxyhemoglobin Sodium Potassium Chloride Carbon Dioxide BUN Creatinine Glucose POC Glucose 159 H 134 H Lactic Acid Calcium Ferritin AST Alkaline Phosphatase Magnesium Lactate Dehydrogenase Total Creatine Kinase CK-MB (CK-2) C-Reactive Protein Total Protein Albumin Troponin T HDL Cholesterol Arterial Blood Glucose Urine WBC (Auto) Urine Creatinine Urine Total Protein Phenytoin Coronavirus (PCR) Crossmatch 06/18/20 06/18/20 06/18/20 04:42 05:52 11:50 WBC RBC Hgb Hct MCHC RDW Lymph % (Auto) [place] % (Auto) Eos % (Auto) Lymph # [place] # Lymph # (Auto) [place] # (Auto) Eos # (Auto) Seg Neutrophils % Seg Neuts % (Manual) Lymphocytes % (Manual) Seg Neutrophils # Seg Neutrophils # Man Lymphocytes # (Manual) Monocytes % (Manual) Eosinophils % (Manual) Monocytes # (Manual) Eosinophils # (Manual) D-Dimer Heparin Anti-Xa Level ABG pH POC ABG pCO2 POC ABG pO2 ABG pO2 ABG HCO3 ABG O2 Saturation ABG Base Excess ABG Hemoglobin ABG Oxyhemoglobin VBG pH ABG Sodium ABG Potassium ABG Glucose Oxyhemoglobin Sodium Potassium Chloride Carbon Dioxide BUN 44 H Creatinine Glucose 115 H POC Glucose 171 H 167 H Lactic Acid Calcium Ferritin AST Alkaline Phosphatase Magnesium Lactate Dehydrogenase Total Creatine Kinase CK-MB (CK-2) C-Reactive Protein Total Protein Albumin Troponin T HDL Cholesterol Arterial Blood Glucose Urine WBC (Auto) Urine Creatinine Urine Total Protein Phenytoin Coronavirus (PCR) Crossmatch 06/18/20 06/19/20 06/19/20 23:46 05:48 07:52 WBC RBC Hgb Hct MCHC RDW Lymph % (Auto) [place] % (Auto) Eos % (Auto) Lymph # [place] # Lymph # (Auto) [place] # (Auto) Eos # (Auto) Seg Neutrophils % Seg Neuts % (Manual) Lymphocytes % (Manual) Seg Neutrophils # Seg Neutrophils # Man Lymphocytes # (Manual) Monocytes % (Manual) Eosinophils % (Manual) Monocytes # (Manual) Eosinophils # (Manual) D-Dimer Heparin Anti-Xa Level ABG pH POC ABG pCO2 POC ABG pO2 ABG pO2 ABG HCO3 ABG O2 Saturation ABG Base Excess ABG Hemoglobin ABG Oxyhemoglobin VBG pH ABG Sodium ABG Potassium ABG Glucose Oxyhemoglobin Sodium Potassium Chloride Carbon Dioxide BUN Creatinine Glucose POC Glucose 130 H 207 H 175 H Lactic Acid Calcium Ferritin AST Alkaline Phosphatase Magnesium Lactate Dehydrogenase Total Creatine Kinase CK-MB (CK-2) C-Reactive Protein Total Protein Albumin Troponin T HDL Cholesterol Arterial Blood Glucose Urine WBC (Auto) Urine Creatinine Urine Total Protein Phenytoin Coronavirus (PCR) Crossmatch 06/19/20 06/19/20 06/20/20 11:42 22:54 05:17 WBC RBC Hgb Hct MCHC RDW Lymph % (Auto) [place] % (Auto) Eos % (Auto) Lymph # [place] # Lymph # (Auto) [place] # (Auto) Eos # (Auto) Seg Neutrophils % Seg Neuts % (Manual) Lymphocytes % (Manual) Seg Neutrophils # Seg Neutrophils # Man Lymphocytes # (Manual) Monocytes % (Manual) Eosinophils % (Manual) Monocytes # (Manual) Eosinophils # (Manual) D-Dimer Heparin Anti-Xa Level ABG pH POC ABG pCO2 POC ABG pO2 ABG pO2 ABG HCO3 ABG O2 Saturation ABG Base Excess ABG Hemoglobin ABG Oxyhemoglobin VBG pH ABG Sodium ABG Potassium ABG Glucose Oxyhemoglobin Sodium Potassium Chloride Carbon Dioxide BUN Creatinine Glucose POC Glucose 166 H 135 H 218 H Lactic Acid Calcium Ferritin AST Alkaline Phosphatase Magnesium Lactate Dehydrogenase Total Creatine Kinase CK-MB (CK-2) C-Reactive Protein Total Protein Albumin Troponin T HDL Cholesterol Arterial Blood Glucose Urine WBC (Auto) Urine Creatinine Urine Total Protein Phenytoin Coronavirus (PCR) Crossmatch 06/20/20 06/20/20 06/20/20 12:04 16:25 16:35 WBC RBC Hgb Hct MCHC RDW Lymph % (Auto) [place] % (Auto) Eos % (Auto) Lymph # [place] # Lymph # (Auto) [place] # (Auto) Eos # (Auto) Seg Neutrophils % Seg Neuts % (Manual) Lymphocytes % (Manual) Seg Neutrophils # Seg Neutrophils # Man Lymphocytes # (Manual) Monocytes % (Manual) Eosinophils % (Manual) Monocytes # (Manual) Eosinophils # (Manual) D-Dimer Heparin Anti-Xa Level ABG pH POC ABG pCO2 POC ABG pO2 ABG pO2 59.6 L ABG HCO3 28.7 H ABG O2 Saturation 93.5 L ABG Base Excess 3.4 H ABG Hemoglobin 7.2 L ABG Oxyhemoglobin VBG pH ABG Sodium ABG Potassium ABG Glucose Oxyhemoglobin 91.3 L Sodium Potassium Chloride Carbon Dioxide BUN Creatinine Glucose POC Glucose 194 H 137 H Lactic Acid Calcium Ferritin AST Alkaline Phosphatase Magnesium Lactate Dehydrogenase Total Creatine Kinase CK-MB (CK-2) C-Reactive Protein Total Protein Albumin Troponin T HDL Cholesterol Arterial Blood Glucose Urine WBC (Auto) Urine Creatinine Urine Total Protein Phenytoin Coronavirus (PCR) Crossmatch 06/20/20 06/21/20 06/21/20 23:59 06:25 12:01 WBC RBC Hgb Hct MCHC RDW Lymph % (Auto) [place] % (Auto) Eos % (Auto) Lymph # [place] # Lymph # (Auto) [place] # (Auto) Eos # (Auto) Seg Neutrophils % Seg Neuts % (Manual) Lymphocytes % (Manual) Seg Neutrophils # Seg Neutrophils # Man Lymphocytes # (Manual) Monocytes % (Manual) Eosinophils % (Manual) Monocytes # (Manual) Eosinophils # (Manual) D-Dimer Heparin Anti-Xa Level ABG pH POC ABG pCO2 POC ABG pO2 ABG pO2 ABG HCO3 ABG O2 Saturation ABG Base Excess ABG Hemoglobin ABG Oxyhemoglobin VBG pH ABG Sodium ABG Potassium ABG Glucose Oxyhemoglobin Sodium Potassium Chloride Carbon Dioxide BUN Creatinine Glucose POC Glucose 156 H 177 H 195 H Lactic Acid Calcium Ferritin AST Alkaline Phosphatase Magnesium Lactate Dehydrogenase Total Creatine Kinase CK-MB (CK-2) C-Reactive Protein Total Protein Albumin Troponin T HDL Cholesterol Arterial Blood Glucose Urine WBC (Auto) Urine Creatinine Urine Total Protein Phenytoin Coronavirus (PCR) Crossmatch 06/21/20 06/21/20 06/22/20 17:04 21:51 05:06 WBC RBC Hgb Hct MCHC RDW Lymph % (Auto) [place] % (Auto) Eos % (Auto) Lymph # [place] # Lymph # (Auto) [place] # (Auto) Eos # (Auto) Seg Neutrophils % Seg Neuts % (Manual) Lymphocytes % (Manual) Seg Neutrophils # Seg Neutrophils # Man Lymphocytes # (Manual) Monocytes % (Manual) Eosinophils % (Manual) Monocytes # (Manual) Eosinophils # (Manual) D-Dimer Heparin Anti-Xa Level ABG pH POC ABG pCO2 POC ABG pO2 ABG pO2 ABG HCO3 ABG O2 Saturation ABG Base Excess ABG Hemoglobin ABG Oxyhemoglobin VBG pH ABG Sodium ABG Potassium ABG Glucose Oxyhemoglobin Sodium Potassium Chloride Carbon Dioxide BUN Creatinine Glucose POC Glucose 156 H 154 H 167 H Lactic Acid Calcium Ferritin AST Alkaline Phosphatase Magnesium Lactate Dehydrogenase Total Creatine Kinase CK-MB (CK-2) C-Reactive Protein Total Protein Albumin Troponin T HDL Cholesterol Arterial Blood Glucose Urine WBC (Auto) Urine Creatinine Urine Total Protein Phenytoin Coronavirus (PCR) Crossmatch 06/22/20 06/22/20 06/22/20 11:20 15:27 16:58 WBC RBC Hgb Hct MCHC RDW Lymph % (Auto) [place] % (Auto) Eos % (Auto) Lymph # [place] # Lymph # (Auto) [place] # (Auto) Eos # (Auto) Seg Neutrophils % Seg Neuts % (Manual) Lymphocytes % (Manual) Seg Neutrophils # Seg Neutrophils # Man Lymphocytes # (Manual) Monocytes % (Manual) Eosinophils % (Manual) Monocytes # (Manual) Eosinophils # (Manual) D-Dimer Heparin Anti-Xa Level ABG pH 7.206 L POC ABG pCO2 79.9 H POC ABG pO2 ABG pO2 ABG HCO3 ABG O2 Saturation ABG Base Excess ABG Hemoglobin 8.3 L ABG Oxyhemoglobin VBG pH ABG Sodium ABG Potassium ABG Glucose Oxyhemoglobin Sodium Potassium Chloride Carbon Dioxide BUN Creatinine Glucose POC Glucose 181 H 230 H Lactic Acid Calcium Ferritin AST Alkaline Phosphatase Magnesium Lactate Dehydrogenase Total Creatine Kinase CK-MB (CK-2) C-Reactive Protein Total Protein Albumin Troponin T HDL Cholesterol Arterial Blood Glucose Urine WBC (Auto) Urine Creatinine Urine Total Protein Phenytoin Coronavirus (PCR) Crossmatch 06/22/20 06/23/20 06/23/20 22:26 05:49 05:49 WBC RBC 2.58 L Hgb 7.4 L Hct 23.2 L MCHC RDW 17.0 H Lymph % (Auto) [place] % (Auto) 11.2 H Eos % (Auto) Lymph # 1.0 L [place] # Lymph # (Auto) [place] # (Auto) Eos # (Auto) Seg Neutrophils % Seg Neuts % (Manual) Lymphocytes % (Manual) Seg Neutrophils # Seg Neutrophils # Man Lymphocytes # (Manual) Monocytes % (Manual) Eosinophils % (Manual) Monocytes # (Manual) Eosinophils # (Manual) D-Dimer Heparin Anti-Xa Level ABG pH POC ABG pCO2 POC ABG pO2 ABG pO2 ABG HCO3 ABG O2 Saturation ABG Base Excess ABG Hemoglobin ABG Oxyhemoglobin VBG pH ABG Sodium ABG Potassium ABG Glucose Oxyhemoglobin Sodium Potassium Chloride Carbon Dioxide BUN 68 H Creatinine 2.4 H Glucose 198 H POC Glucose 195 H Lactic Acid Calcium Ferritin AST Alkaline Phosphatase Magnesium Lactate Dehydrogenase Total Creatine Kinase CK-MB (CK-2) C-Reactive Protein Total Protein Albumin Troponin T HDL Cholesterol Arterial Blood Glucose Urine WBC (Auto) Urine Creatinine Urine Total Protein Phenytoin Coronavirus (PCR) Crossmatch 06/23/20 06/23/20 06/23/20 05:50 12:29 12:34 WBC RBC Hgb Hct MCHC RDW Lymph % (Auto) [place] % (Auto) Eos % (Auto) Lymph # [place] # Lymph # (Auto) [place] # (Auto) Eos # (Auto) Seg Neutrophils % Seg Neuts % (Manual) Lymphocytes % (Manual) Seg Neutrophils # Seg Neutrophils # Man Lymphocytes # (Manual) Monocytes % (Manual) Eosinophils % (Manual) Monocytes # (Manual) Eosinophils # (Manual) D-Dimer Heparin Anti-Xa Level ABG pH POC ABG pCO2 54.7 H POC ABG pO2 68.8 L ABG pO2 ABG HCO3 ABG O2 Saturation ABG Base Excess ABG Hemoglobin 9.8 L ABG Oxyhemoglobin 92.6 L VBG pH ABG Sodium ABG Potassium ABG Glucose Oxyhemoglobin Sodium Potassium Chloride Carbon Dioxide BUN Creatinine Glucose POC Glucose 202 H 218 H Lactic Acid Calcium Ferritin AST Alkaline Phosphatase Magnesium Lactate Dehydrogenase Total Creatine Kinase CK-MB (CK-2) C-Reactive Protein Total Protein Albumin Troponin T HDL Cholesterol Arterial Blood Glucose Urine WBC (Auto) Urine Creatinine Urine Total Protein Phenytoin Coronavirus (PCR) Crossmatch 06/23/20 06/23/20 06/24/20 16:02 22:22 01:06 WBC RBC Hgb Hct MCHC RDW Lymph % (Auto) [place] % (Auto) Eos % (Auto) Lymph # [place] # Lymph # (Auto) [place] # (Auto) Eos # (Auto) Seg Neutrophils % Seg Neuts % (Manual) Lymphocytes % (Manual) Seg Neutrophils # Seg Neutrophils # Man Lymphocytes # (Manual) Monocytes % (Manual) Eosinophils % (Manual) Monocytes # (Manual) Eosinophils # (Manual) D-Dimer Heparin Anti-Xa Level ABG pH POC ABG pCO2 POC ABG pO2 ABG pO2 ABG HCO3 ABG O2 Saturation ABG Base Excess ABG Hemoglobin ABG Oxyhemoglobin VBG pH ABG Sodium ABG Potassium ABG Glucose Oxyhemoglobin Sodium Potassium Chloride Carbon Dioxide BUN Creatinine Glucose POC Glucose 190 H 166 H 171 H Lactic Acid Calcium Ferritin AST Alkaline Phosphatase Magnesium Lactate Dehydrogenase Total Creatine Kinase CK-MB (CK-2) C-Reactive Protein Total Protein Albumin Troponin T HDL Cholesterol Arterial Blood Glucose Urine WBC (Auto) Urine Creatinine Urine Total Protein Phenytoin Coronavirus (PCR) Crossmatch 06/24/20 06/24/20 06/24/20 04:48 05:35 11:48 WBC RBC Hgb Hct MCHC RDW Lymph % (Auto) [place] % (Auto) Eos % (Auto) Lymph # [place] # Lymph # (Auto) [place] # (Auto) Eos # (Auto) Seg Neutrophils % Seg Neuts % (Manual) Lymphocytes % (Manual) Seg Neutrophils # Seg Neutrophils # Man Lymphocytes # (Manual) Monocytes % (Manual) Eosinophils % (Manual) Monocytes # (Manual) Eosinophils # (Manual) D-Dimer Heparin Anti-Xa Level ABG pH POC ABG pCO2 POC ABG pO2 ABG pO2 ABG HCO3 ABG O2 Saturation ABG Base Excess ABG Hemoglobin ABG Oxyhemoglobin VBG pH ABG Sodium ABG Potassium ABG Glucose Oxyhemoglobin Sodium Potassium Chloride Carbon Dioxide BUN 75 H Creatinine 2.6 H Glucose 179 H POC Glucose 172 H 153 H Lactic Acid Calcium Ferritin AST Alkaline Phosphatase Magnesium Lactate Dehydrogenase Total Creatine Kinase CK-MB (CK-2) C-Reactive Protein Total Protein Albumin Troponin T HDL Cholesterol Arterial Blood Glucose Urine WBC (Auto) Urine Creatinine Urine Total Protein Phenytoin Coronavirus (PCR) Crossmatch 06/24/20 06/24/20 06/25/20 16:38 21:52 12:00 WBC RBC Hgb Hct MCHC RDW Lymph % (Auto) [place] % (Auto) Eos % (Auto) Lymph # [place] # Lymph # (Auto) [place] # (Auto) Eos # (Auto) Seg Neutrophils % Seg Neuts % (Manual) Lymphocytes % (Manual) Seg Neutrophils # Seg Neutrophils # Man Lymphocytes # (Manual) Monocytes % (Manual) Eosinophils % (Manual) Monocytes # (Manual) Eosinophils # (Manual) D-Dimer Heparin Anti-Xa Level ABG pH POC ABG pCO2 POC ABG pO2 ABG pO2 ABG HCO3 ABG O2 Saturation ABG Base Excess ABG Hemoglobin ABG Oxyhemoglobin VBG pH ABG Sodium ABG Potassium ABG Glucose Oxyhemoglobin Sodium Potassium Chloride Carbon Dioxide BUN Creatinine Glucose POC Glucose 123 H 115 H 203 H Lactic Acid Calcium Ferritin AST Alkaline Phosphatase Magnesium Lactate Dehydrogenase Total Creatine Kinase CK-MB (CK-2) C-Reactive Protein Total Protein Albumin Troponin T HDL Cholesterol Arterial Blood Glucose Urine WBC (Auto) Urine Creatinine Urine Total Protein Phenytoin Coronavirus (PCR) Crossmatch 06/25/20 06/25/20 06/25/20 15:43 16:37 23:02 WBC RBC Hgb Hct MCHC RDW Lymph % (Auto) [place] % (Auto) Eos % (Auto) Lymph # [place] # Lymph # (Auto) [place] # (Auto) Eos # (Auto) Seg Neutrophils % Seg Neuts % (Manual) Lymphocytes % (Manual) Seg Neutrophils # Seg Neutrophils # Man Lymphocytes # (Manual) Monocytes % (Manual) Eosinophils % (Manual) Monocytes # (Manual) Eosinophils # (Manual) D-Dimer Heparin Anti-Xa Level ABG pH POC ABG pCO2 POC ABG pO2 ABG pO2 ABG HCO3 ABG O2 Saturation ABG Base Excess ABG Hemoglobin ABG Oxyhemoglobin VBG pH ABG Sodium ABG Potassium ABG Glucose Oxyhemoglobin Sodium Potassium Chloride Carbon Dioxide BUN 71 H Creatinine 1.8 H Glucose 170 H POC Glucose 191 H 126 H Lactic Acid Calcium 8.2 L Ferritin AST Alkaline Phosphatase Magnesium Lactate Dehydrogenase Total Creatine Kinase CK-MB (CK-2) C-Reactive Protein Total Protein Albumin Troponin T HDL Cholesterol Arterial Blood Glucose Urine WBC (Auto) Urine Creatinine Urine Total Protein Phenytoin Coronavirus (PCR) Crossmatch 06/26/20 06/26/20 06/26/20 06:34 06:34 09:27 WBC RBC 2.41 L Hgb 6.9 L Hct 21.5 L MCHC RDW 16.7 H Lymph % (Auto) 10.9 L [place] % (Auto) 9.6 H Eos % (Auto) Lymph # 0.7 L [place] # Lymph # (Auto) [place] # (Auto) Eos # (Auto) Seg Neutrophils % 75.4 H Seg Neuts % (Manual) Lymphocytes % (Manual) Seg Neutrophils # Seg Neutrophils # Man Lymphocytes # (Manual) Monocytes % (Manual) Eosinophils % (Manual) Monocytes # (Manual) Eosinophils # (Manual) D-Dimer Heparin Anti-Xa Level ABG pH POC ABG pCO2 POC ABG pO2 ABG pO2 ABG HCO3 ABG O2 Saturation ABG Base Excess ABG Hemoglobin ABG Oxyhemoglobin VBG pH ABG Sodium ABG Potassium ABG Glucose Oxyhemoglobin Sodium Potassium Chloride Carbon Dioxide BUN 77 H Creatinine 1.9 H Glucose 190 H POC Glucose Lactic Acid Calcium Ferritin AST Alkaline Phosphatase Magnesium Lactate Dehydrogenase Total Creatine Kinase CK-MB (CK-2) C-Reactive Protein Total Protein Albumin Troponin T HDL Cholesterol Arterial Blood Glucose Urine WBC (Auto) Urine Creatinine Urine Total Protein Phenytoin Coronavirus (PCR) Crossmatch See Detail 06/26/20 06/26/20 06/26/20 12:15 16:28 17:28 WBC RBC Hgb Hct MCHC RDW Lymph % (Auto) [place] % (Auto) Eos % (Auto) Lymph # [place] # Lymph # (Auto) [place] # (Auto) Eos # (Auto) Seg Neutrophils % Seg Neuts % (Manual) Lymphocytes % (Manual) Seg Neutrophils # Seg Neutrophils # Man Lymphocytes # (Manual) Monocytes % (Manual) Eosinophils % (Manual) Monocytes # (Manual) Eosinophils # (Manual) D-Dimer Heparin Anti-Xa Level ABG pH POC ABG pCO2 POC ABG pO2 ABG pO2 ABG HCO3 ABG O2 Saturation ABG Base Excess ABG Hemoglobin ABG Oxyhemoglobin VBG pH ABG Sodium ABG Potassium ABG Glucose Oxyhemoglobin Sodium Potassium Chloride Carbon Dioxide BUN Creatinine Glucose POC Glucose 187 H 149 H 189 H Lactic Acid Calcium Ferritin AST Alkaline Phosphatase Magnesium Lactate Dehydrogenase Total Creatine Kinase CK-MB (CK-2) C-Reactive Protein Total Protein Albumin Troponin T HDL Cholesterol Arterial Blood Glucose Urine WBC (Auto) Urine Creatinine Urine Total Protein Phenytoin Coronavirus (PCR) Crossmatch 06/26/20 06/26/20 06/26/20 18:30 18:30 18:30 WBC RBC 2.87 L Hgb 8.2 L Hct 25.9 L MCHC RDW 17.8 H Lymph % (Auto) [place] % (Auto) Eos % (Auto) Lymph # [place] # Lymph # (Auto) [place] # (Auto) Eos # (Auto) Seg Neutrophils % Seg Neuts % (Manual) 83.0 H Lymphocytes % (Manual) 8.0 L Seg Neutrophils # Seg Neutrophils # Man Lymphocytes # (Manual) 0.6 L Monocytes % (Manual) Eosinophils % (Manual) Monocytes # (Manual) Eosinophils # (Manual) D-Dimer Heparin Anti-Xa Level ABG pH POC ABG pCO2 POC ABG pO2 ABG pO2 ABG HCO3 ABG O2 Saturation ABG Base Excess ABG Hemoglobin ABG Oxyhemoglobin VBG pH ABG Sodium ABG Potassium ABG Glucose Oxyhemoglobin Sodium Potassium Chloride Carbon Dioxide BUN 80 H Creatinine 2.1 H Glucose 260 H POC Glucose Lactic Acid 4.30 H* Calcium 8.3 L Ferritin AST Alkaline Phosphatase Magnesium Lactate Dehydrogenase Total Creatine Kinase CK-MB (CK-2) C-Reactive Protein Total Protein Albumin Troponin T HDL Cholesterol Arterial Blood Glucose Urine WBC (Auto) Urine Creatinine Urine Total Protein Phenytoin Coronavirus (PCR) Crossmatch 06/26/20 06/27/20 06/27/20 18:50 01:00 04:29 WBC RBC Hgb Hct MCHC RDW Lymph % (Auto) [place] % (Auto) Eos % (Auto) Lymph # [place] # Lymph # (Auto) [place] # (Auto) Eos # (Auto) Seg Neutrophils % Seg Neuts % (Manual) Lymphocytes % (Manual) Seg Neutrophils # Seg Neutrophils # Man Lymphocytes # (Manual) Monocytes % (Manual) Eosinophils % (Manual) Monocytes # (Manual) Eosinophils # (Manual) D-Dimer Heparin Anti-Xa Level ABG pH 7.296 L POC ABG pCO2 POC ABG pO2 ABG pO2 116.5 H 200.5 H ABG HCO3 28.4 H ABG O2 Saturation 99.3 H ABG Base Excess 3.7 H ABG Hemoglobin 5.6 L ABG Oxyhemoglobin VBG pH ABG Sodium ABG Potassium ABG Glucose Oxyhemoglobin Sodium Potassium Chloride Carbon Dioxide BUN Creatinine Glucose POC Glucose 123 H Lactic Acid Calcium Ferritin AST Alkaline Phosphatase Magnesium Lactate Dehydrogenase Total Creatine Kinase CK-MB (CK-2) C-Reactive Protein Total Protein Albumin Troponin T HDL Cholesterol Arterial Blood Glucose Urine WBC (Auto) Urine Creatinine Urine Total Protein Phenytoin Coronavirus (PCR) Crossmatch 06/27/20 06/27/20 06/27/20 05:00 05:00 05:00 WBC RBC 2.75 L Hgb 7.9 L Hct 24.3 L MCHC RDW 17.1 H Lymph % (Auto) 8.5 L [place] % (Auto) 12.6 H Eos % (Auto) Lymph # 0.7 L [place] # 1.0 H Lymph # (Auto) [place] # (Auto) Eos # (Auto) Seg Neutrophils % 77.5 H Seg Neuts % (Manual) Lymphocytes % (Manual) Seg Neutrophils # Seg Neutrophils # Man Lymphocytes # (Manual) Monocytes % (Manual) Eosinophils % (Manual) Monocytes # (Manual) Eosinophils # (Manual) D-Dimer Heparin Anti-Xa Level ABG pH POC ABG pCO2 POC ABG pO2 ABG pO2 ABG HCO3 ABG O2 Saturation ABG Base Excess ABG Hemoglobin ABG Oxyhemoglobin VBG pH ABG Sodium ABG Potassium ABG Glucose Oxyhemoglobin Sodium Potassium Chloride Carbon Dioxide BUN 80 H Creatinine 2.0 H Glucose 129 H POC Glucose Lactic Acid 0.60 L Calcium 7.9 L Ferritin AST Alkaline Phosphatase Magnesium Lactate Dehydrogenase Total Creatine Kinase CK-MB (CK-2) C-Reactive Protein Total Protein Albumin Troponin T HDL Cholesterol Arterial Blood Glucose Urine WBC (Auto) Urine Creatinine Urine Total Protein Phenytoin Coronavirus (PCR) Crossmatch 06/27/20 06/27/20 06/27/20 05:23 13:46 17:25 WBC RBC Hgb Hct MCHC RDW Lymph % (Auto) [place] % (Auto) Eos % (Auto) Lymph # [place] # Lymph # (Auto) [place] # (Auto) Eos # (Auto) Seg Neutrophils % Seg Neuts % (Manual) Lymphocytes % (Manual) Seg Neutrophils # Seg Neutrophils # Man Lymphocytes # (Manual) Monocytes % (Manual) Eosinophils % (Manual) Monocytes # (Manual) Eosinophils # (Manual) D-Dimer Heparin Anti-Xa Level ABG pH POC ABG pCO2 POC ABG pO2 ABG pO2 ABG HCO3 ABG O2 Saturation ABG Base Excess ABG Hemoglobin ABG Oxyhemoglobin VBG pH ABG Sodium ABG Potassium ABG Glucose Oxyhemoglobin Sodium Potassium Chloride Carbon Dioxide BUN Creatinine Glucose POC Glucose 109 H 158 H 162 H Lactic Acid Calcium Ferritin AST Alkaline Phosphatase Magnesium Lactate Dehydrogenase Total Creatine Kinase CK-MB (CK-2) C-Reactive Protein Total Protein Albumin Troponin T HDL Cholesterol Arterial Blood Glucose Urine WBC (Auto) Urine Creatinine Urine Total Protein Phenytoin Coronavirus (PCR) Crossmatch 06/27/20 06/27/20 06/28/20 18:43 23:46 04:05 WBC RBC Hgb 7.7 L Hct 22.1 L MCHC RDW Lymph % (Auto) [place] % (Auto) Eos % (Auto) Lymph # [place] # Lymph # (Auto) [place] # (Auto) Eos # (Auto) Seg Neutrophils % Seg Neuts % (Manual) Lymphocytes % (Manual) Seg Neutrophils # Seg Neutrophils # Man Lymphocytes # (Manual) Monocytes % (Manual) Eosinophils % (Manual) Monocytes # (Manual) Eosinophils # (Manual) D-Dimer Heparin Anti-Xa Level ABG pH POC ABG pCO2 POC ABG pO2 ABG pO2 102.7 H ABG HCO3 28.7 H ABG O2 Saturation ABG Base Excess 3.7 H ABG Hemoglobin ABG Oxyhemoglobin VBG pH ABG Sodium ABG Potassium ABG Glucose Oxyhemoglobin Sodium Potassium Chloride Carbon Dioxide BUN Creatinine Glucose POC Glucose 142 H Lactic Acid Calcium Ferritin AST Alkaline Phosphatase Magnesium Lactate Dehydrogenase Total Creatine Kinase CK-MB (CK-2) C-Reactive Protein Total Protein Albumin Troponin T HDL Cholesterol Arterial Blood Glucose Urine WBC (Auto) Urine Creatinine Urine Total Protein Phenytoin Coronavirus (PCR) Crossmatch 06/28/20 06/28/20 06/28/20 09:47 09:47 12:02 WBC RBC 2.53 L Hgb 7.4 L Hct 22.2 L MCHC RDW 16.8 H Lymph % (Auto) [place] % (Auto) 13.5 H Eos % (Auto) Lymph # 1.1 L [place] # 1.0 H Lymph # (Auto) [place] # (Auto) Eos # (Auto) Seg Neutrophils % Seg Neuts % (Manual) Lymphocytes % (Manual) Seg Neutrophils # Seg Neutrophils # Man Lymphocytes # (Manual) Monocytes % (Manual) Eosinophils % (Manual) Monocytes # (Manual) Eosinophils # (Manual) D-Dimer Heparin Anti-Xa Level ABG pH POC ABG pCO2 POC ABG pO2 ABG pO2 ABG HCO3 ABG O2 Saturation ABG Base Excess ABG Hemoglobin ABG Oxyhemoglobin VBG pH ABG Sodium ABG Potassium ABG Glucose Oxyhemoglobin Sodium Potassium Chloride Carbon Dioxide BUN 80 H Creatinine 1.5 H Glucose 139 H POC Glucose 169 H Lactic Acid Calcium 7.9 L Ferritin AST Alkaline Phosphatase Magnesium Lactate Dehydrogenase Total Creatine Kinase CK-MB (CK-2) C-Reactive Protein Total Protein 5.0 L Albumin 2.1 L Troponin T HDL Cholesterol Arterial Blood Glucose Urine WBC (Auto) Urine Creatinine Urine Total Protein Phenytoin Coronavirus (PCR) Crossmatch 06/28/20 06/28/20 06/28/20 12:30 12:30 17:24 WBC RBC 2.38 L Hgb 7.3 L Hct 20.9 L MCHC 35 H RDW 16.7 H Lymph % (Auto) [place] % (Auto) Eos % (Auto) Lymph # [place] # Lymph # (Auto) [place] # (Auto) Eos # (Auto) Seg Neutrophils % Seg Neuts % (Manual) Lymphocytes % (Manual) Seg Neutrophils # Seg Neutrophils # Man Lymphocytes # (Manual) Monocytes % (Manual) Eosinophils % (Manual) Monocytes # (Manual) Eosinophils # (Manual) D-Dimer Heparin Anti-Xa Level ABG pH POC ABG pCO2 POC ABG pO2 ABG pO2 ABG HCO3 ABG O2 Saturation ABG Base Excess ABG Hemoglobin ABG Oxyhemoglobin VBG pH ABG Sodium ABG Potassium ABG Glucose Oxyhemoglobin Sodium Potassium Chloride Carbon Dioxide BUN 74 H Creatinine 1.5 H Glucose 143 H POC Glucose 173 H Lactic Acid Calcium 7.5 L Ferritin AST Alkaline Phosphatase Magnesium Lactate Dehydrogenase Total Creatine Kinase CK-MB (CK-2) C-Reactive Protein Total Protein Albumin Troponin T HDL Cholesterol Arterial Blood Glucose Urine WBC (Auto) Urine Creatinine Urine Total Protein Phenytoin Coronavirus (PCR) Crossmatch 06/29/20 06/29/20 06/29/20 00:02 03:54 04:38 WBC RBC 2.55 L Hgb 7.3 L Hct 22.4 L MCHC RDW 16.4 H Lymph % (Auto) 13.3 L [place] % (Auto) 12.5 H Eos % (Auto) Lymph # 1.1 L [place] # 1.0 H Lymph # (Auto) [place] # (Auto) Eos # (Auto) Seg Neutrophils % Seg Neuts % (Manual) Lymphocytes % (Manual) Seg Neutrophils # Seg Neutrophils # Man Lymphocytes # (Manual) Monocytes % (Manual) Eosinophils % (Manual) Monocytes # (Manual) Eosinophils # (Manual) D-Dimer Heparin Anti-Xa Level ABG pH POC ABG pCO2 POC ABG pO2 ABG pO2 ABG HCO3 26.9 H ABG O2 Saturation ABG Base Excess ABG Hemoglobin 6.9 L ABG Oxyhemoglobin VBG pH ABG Sodium ABG Potassium ABG Glucose Oxyhemoglobin Sodium Potassium Chloride Carbon Dioxide BUN Creatinine Glucose POC Glucose 142 H Lactic Acid Calcium Ferritin AST Alkaline Phosphatase Magnesium Lactate Dehydrogenase Total Creatine Kinase CK-MB (CK-2) C-Reactive Protein Total Protein Albumin Troponin T HDL Cholesterol Arterial Blood Glucose Urine WBC (Auto) Urine Creatinine Urine Total Protein Phenytoin Coronavirus (PCR) Crossmatch 06/29/20 06/29/20 06/29/20 04:38 05:38 12:25 WBC RBC Hgb Hct MCHC RDW Lymph % (Auto) [place] % (Auto) Eos % (Auto) Lymph # [place] # Lymph # (Auto) [place] # (Auto) Eos # (Auto) Seg Neutrophils % Seg Neuts % (Manual) Lymphocytes % (Manual) Seg Neutrophils # Seg Neutrophils # Man Lymphocytes # (Manual) Monocytes % (Manual) Eosinophils % (Manual) Monocytes # (Manual) Eosinophils # (Manual) D-Dimer Heparin Anti-Xa Level ABG pH POC ABG pCO2 POC ABG pO2 ABG pO2 ABG HCO3 ABG O2 Saturation ABG Base Excess ABG Hemoglobin ABG Oxyhemoglobin VBG pH ABG Sodium ABG Potassium ABG Glucose Oxyhemoglobin Sodium Potassium Chloride 107.8 H Carbon Dioxide BUN 72 H Creatinine 1.4 H Glucose 127 H POC Glucose 122 H 138 H Lactic Acid Calcium 7.4 L Ferritin AST Alkaline Phosphatase Magnesium Lactate Dehydrogenase Total Creatine Kinase CK-MB (CK-2) C-Reactive Protein Total Protein Albumin Troponin T HDL Cholesterol Arterial Blood Glucose Urine WBC (Auto) Urine Creatinine Urine Total Protein Phenytoin Coronavirus (PCR) Crossmatch 06/29/20 06/29/20 06/29/20 14:45 14:45 14:45 WBC RBC Hgb Hct MCHC RDW Lymph % (Auto) [place] % (Auto) Eos % (Auto) Lymph # [place] # Lymph # (Auto) [place] # (Auto) Eos # (Auto) Seg Neutrophils % Seg Neuts % (Manual) Lymphocytes % (Manual) Seg Neutrophils # Seg Neutrophils # Man Lymphocytes # (Manual) Monocytes % (Manual) Eosinophils % (Manual) Monocytes # (Manual) Eosinophils # (Manual) D-Dimer 2310.15 H Heparin Anti-Xa Level ABG pH POC ABG pCO2 POC ABG pO2 ABG pO2 ABG HCO3 ABG O2 Saturation ABG Base Excess ABG Hemoglobin ABG Oxyhemoglobin VBG pH ABG Sodium ABG Potassium ABG Glucose Oxyhemoglobin Sodium Potassium Chloride Carbon Dioxide BUN Creatinine Glucose POC Glucose Lactic Acid Calcium Ferritin 223.6 H AST Alkaline Phosphatase Magnesium Lactate Dehydrogenase 367 H Total Creatine Kinase CK-MB (CK-2) C-Reactive Protein 3.60 H Total Protein Albumin Troponin T HDL Cholesterol Arterial Blood Glucose Urine WBC (Auto) Urine Creatinine Urine Total Protein Phenytoin Coronavirus (PCR) Crossmatch 06/29/20 06/29/20 06/29/20 18:27 23:35 Unknown WBC RBC Hgb Hct MCHC RDW Lymph % (Auto) [place] % (Auto) Eos % (Auto) Lymph # [place] # Lymph # (Auto) [place] # (Auto) Eos # (Auto) Seg Neutrophils % Seg Neuts % (Manual) Lymphocytes % (Manual) Seg Neutrophils # Seg Neutrophils # Man Lymphocytes # (Manual) Monocytes % (Manual) Eosinophils % (Manual) Monocytes # (Manual) Eosinophils # (Manual) D-Dimer Heparin Anti-Xa Level ABG pH POC ABG pCO2 POC ABG pO2 ABG pO2 ABG HCO3 ABG O2 Saturation ABG Base Excess ABG Hemoglobin ABG Oxyhemoglobin VBG pH ABG Sodium ABG Potassium ABG Glucose Oxyhemoglobin Sodium Potassium Chloride Carbon Dioxide BUN Creatinine Glucose POC Glucose 112 H 140 H Lactic Acid Calcium Ferritin AST Alkaline Phosphatase Magnesium Lactate Dehydrogenase Total Creatine Kinase CK-MB (CK-2) C-Reactive Protein Total Protein Albumin Troponin T HDL Cholesterol Arterial Blood Glucose Urine WBC (Auto) Urine Creatinine Urine Total Protein Phenytoin Coronavirus (PCR) Positive A Crossmatch 06/30/20 06/30/20 06/30/20 04:10 04:10 06:09 WBC RBC 2.44 L Hgb 7.1 L Hct 21.5 L MCHC RDW 16.6 H Lymph % (Auto) 11.0 L [place] % (Auto) 10.8 H Eos % (Auto) Lymph # 0.9 L [place] # 0.9 H Lymph # (Auto) [place] # (Auto) Eos # (Auto) Seg Neutrophils % 73.7 H Seg Neuts % (Manual) Lymphocytes % (Manual) Seg Neutrophils # Seg Neutrophils # Man Lymphocytes # (Manual) Monocytes % (Manual) Eosinophils % (Manual) Monocytes # (Manual) Eosinophils # (Manual) D-Dimer Heparin Anti-Xa Level ABG pH POC ABG pCO2 POC ABG pO2 ABG pO2 ABG HCO3 ABG O2 Saturation ABG Base Excess ABG Hemoglobin ABG Oxyhemoglobin VBG pH ABG Sodium ABG Potassium ABG Glucose Oxyhemoglobin Sodium Potassium Chloride 109.1 H Carbon Dioxide BUN 74 H Creatinine 1.3 H Glucose 191 H POC Glucose 187 H Lactic Acid Calcium 7.8 L Ferritin AST Alkaline Phosphatase Magnesium Lactate Dehydrogenase Total Creatine Kinase CK-MB (CK-2) C-Reactive Protein Total Protein Albumin Troponin T HDL Cholesterol Arterial Blood Glucose Urine WBC (Auto) Urine Creatinine Urine Total Protein Phenytoin Coronavirus (PCR) Crossmatch 06/30/20 06/30/20 06/30/20 12:04 17:43 23:41 WBC RBC Hgb Hct MCHC RDW Lymph % (Auto) [place] % (Auto) Eos % (Auto) Lymph # [place] # Lymph # (Auto) [place] # (Auto) Eos # (Auto) Seg Neutrophils % Seg Neuts % (Manual) Lymphocytes % (Manual) Seg Neutrophils # Seg Neutrophils # Man Lymphocytes # (Manual) Monocytes % (Manual) Eosinophils % (Manual) Monocytes # (Manual) Eosinophils # (Manual) D-Dimer Heparin Anti-Xa Level ABG pH POC ABG pCO2 POC ABG pO2 ABG pO2 ABG HCO3 ABG O2 Saturation ABG Base Excess ABG Hemoglobin ABG Oxyhemoglobin VBG pH ABG Sodium ABG Potassium ABG Glucose Oxyhemoglobin Sodium Potassium Chloride Carbon Dioxide BUN Creatinine Glucose POC Glucose 112 H 177 H 143 H Lactic Acid Calcium Ferritin AST Alkaline Phosphatase Magnesium Lactate Dehydrogenase Total Creatine Kinase CK-MB (CK-2) C-Reactive Protein Total Protein Albumin Troponin T HDL Cholesterol Arterial Blood Glucose Urine WBC (Auto) Urine Creatinine Urine Total Protein Phenytoin Coronavirus (PCR) Crossmatch 07/01/20 07/01/20 07/01/20 05:02 05:52 06:01 WBC 12.6 H RBC 2.95 L Hgb 8.2 L Hct 26.0 L MCHC RDW 16.9 H Lymph % (Auto) [place] % (Auto) Eos % (Auto) Lymph # [place] # Lymph # (Auto) [place] # (Auto) Eos # (Auto) Seg Neutrophils % Seg Neuts % (Manual) Lymphocytes % (Manual) Seg Neutrophils # Seg Neutrophils # Man 8.6 H Lymphocytes # (Manual) Monocytes % (Manual) Eosinophils % (Manual) 5.0 H Monocytes # (Manual) Eosinophils # (Manual) 0.6 H D-Dimer Heparin Anti-Xa Level ABG pH POC ABG pCO2 POC ABG pO2 ABG pO2 ABG HCO3 ABG O2 Saturation ABG Base Excess ABG Hemoglobin 8.2 L ABG Oxyhemoglobin VBG pH ABG Sodium ABG Potassium ABG Glucose Oxyhemoglobin Sodium Potassium Chloride Carbon Dioxide BUN Creatinine Glucose POC Glucose 129 H Lactic Acid Calcium Ferritin AST Alkaline Phosphatase Magnesium Lactate Dehydrogenase Total Creatine Kinase CK-MB (CK-2) C-Reactive Protein Total Protein Albumin Troponin T HDL Cholesterol Arterial Blood Glucose Urine WBC (Auto) Urine Creatinine Urine Total Protein Phenytoin Coronavirus (PCR) Crossmatch 07/01/20 07/01/20 07/01/20 06:01 06:01 06:08 WBC RBC Hgb Hct MCHC RDW Lymph % (Auto) [place] % (Auto) Eos % (Auto) Lymph # [place] # Lymph # (Auto) [place] # (Auto) Eos # (Auto) Seg Neutrophils % Seg Neuts % (Manual) Lymphocytes % (Manual) Seg Neutrophils # Seg Neutrophils # Man Lymphocytes # (Manual) Monocytes % (Manual) Eosinophils % (Manual) Monocytes # (Manual) Eosinophils # (Manual) D-Dimer Heparin Anti-Xa Level ABG pH POC ABG pCO2 POC ABG pO2 ABG pO2 ABG HCO3 ABG O2 Saturation ABG Base Excess ABG Hemoglobin ABG Oxyhemoglobin VBG pH ABG Sodium ABG Potassium ABG Glucose Oxyhemoglobin Sodium 147 H Potassium Chloride 108.0 H Carbon Dioxide BUN 71 H Creatinine 1.3 H Glucose 193 H POC Glucose 192 H Lactic Acid Calcium 8.1 L Ferritin AST Alkaline Phosphatase Magnesium Lactate Dehydrogenase Total Creatine Kinase 300 H CK-MB (CK-2) C-Reactive Protein Total Protein Albumin Troponin T 0.067 H HDL Cholesterol 61 H Arterial Blood Glucose Urine WBC (Auto) Urine Creatinine Urine Total Protein Phenytoin Coronavirus (PCR) Crossmatch 07/01/20 07/01/20 07/02/20 12:23 17:40 00:18 WBC RBC Hgb Hct MCHC RDW Lymph % (Auto) [place] % (Auto) Eos % (Auto) Lymph # [place] # Lymph # (Auto) [place] # (Auto) Eos # (Auto) Seg Neutrophils % Seg Neuts % (Manual) Lymphocytes % (Manual) Seg Neutrophils # Seg Neutrophils # Man Lymphocytes # (Manual) Monocytes % (Manual) Eosinophils % (Manual) Monocytes # (Manual) Eosinophils # (Manual) D-Dimer Heparin Anti-Xa Level ABG pH POC ABG pCO2 POC ABG pO2 ABG pO2 ABG HCO3 ABG O2 Saturation ABG Base Excess ABG Hemoglobin ABG Oxyhemoglobin VBG pH ABG Sodium ABG Potassium ABG Glucose Oxyhemoglobin Sodium Potassium Chloride Carbon Dioxide BUN Creatinine Glucose POC Glucose 111 H 135 H 145 H Lactic Acid Calcium Ferritin AST Alkaline Phosphatase Magnesium Lactate Dehydrogenase Total Creatine Kinase CK-MB (CK-2) C-Reactive Protein Total Protein Albumin Troponin T HDL Cholesterol Arterial Blood Glucose Urine WBC (Auto) Urine Creatinine Urine Total Protein Phenytoin Coronavirus (PCR) Crossmatch 07/02/20 07/02/20 07/02/20 04:11 04:23 05:54 WBC RBC Hgb Hct MCHC RDW Lymph % (Auto) [place] % (Auto) Eos % (Auto) Lymph # [place] # Lymph # (Auto) [place] # (Auto) Eos # (Auto) Seg Neutrophils % Seg Neuts % (Manual) Lymphocytes % (Manual) Seg Neutrophils # Seg Neutrophils # Man Lymphocytes # (Manual) Monocytes % (Manual) Eosinophils % (Manual) Monocytes # (Manual) Eosinophils # (Manual) D-Dimer Heparin Anti-Xa Level ABG pH POC ABG pCO2 POC ABG pO2 ABG pO2 ABG HCO3 ABG O2 Saturation ABG Base Excess ABG Hemoglobin 5.4 L ABG Oxyhemoglobin VBG pH ABG Sodium ABG Potassium ABG Glucose Oxyhemoglobin Sodium Potassium Chloride 108.6 H Carbon Dioxide BUN 72 H Creatinine Glucose 112 H POC Glucose 137 H Lactic Acid Calcium 7.8 L Ferritin AST Alkaline Phosphatase Magnesium Lactate Dehydrogenase Total Creatine Kinase CK-MB (CK-2) C-Reactive Protein Total Protein Albumin Troponin T HDL Cholesterol Arterial Blood Glucose Urine WBC (Auto) Urine Creatinine Urine Total Protein Phenytoin Coronavirus (PCR) Crossmatch 07/02/20 07/02/20 07/02/20 11:38 18:04 23:59 WBC RBC Hgb Hct MCHC RDW Lymph % (Auto) [place] % (Auto) Eos % (Auto) Lymph # [place] # Lymph # (Auto) [place] # (Auto) Eos # (Auto) Seg Neutrophils % Seg Neuts % (Manual) Lymphocytes % (Manual) Seg Neutrophils # Seg Neutrophils # Man Lymphocytes # (Manual) Monocytes % (Manual) Eosinophils % (Manual) Monocytes # (Manual) Eosinophils # (Manual) D-Dimer Heparin Anti-Xa Level ABG pH POC ABG pCO2 POC ABG pO2 ABG pO2 ABG HCO3 ABG O2 Saturation ABG Base Excess ABG Hemoglobin ABG Oxyhemoglobin VBG pH ABG Sodium ABG Potassium ABG Glucose Oxyhemoglobin Sodium Potassium Chloride Carbon Dioxide BUN Creatinine Glucose POC Glucose 128 H 135 H 156 H Lactic Acid Calcium Ferritin AST Alkaline Phosphatase Magnesium Lactate Dehydrogenase Total Creatine Kinase CK-MB (CK-2) C-Reactive Protein Total Protein Albumin Troponin T HDL Cholesterol Arterial Blood Glucose Urine WBC (Auto) Urine Creatinine Urine Total Protein Phenytoin Coronavirus (PCR) Crossmatch 07/03/20 07/03/20 07/03/20 03:49 06:00 11:31 WBC RBC Hgb Hct MCHC RDW Lymph % (Auto) [place] % (Auto) Eos % (Auto) Lymph # [place] # Lymph # (Auto) [place] # (Auto) Eos # (Auto) Seg Neutrophils % Seg Neuts % (Manual) Lymphocytes % (Manual) Seg Neutrophils # Seg Neutrophils # Man Lymphocytes # (Manual) Monocytes % (Manual) Eosinophils % (Manual) Monocytes # (Manual) Eosinophils # (Manual) D-Dimer Heparin Anti-Xa Level ABG pH POC ABG pCO2 POC ABG pO2 ABG pO2 121.0 H ABG HCO3 ABG O2 Saturation ABG Base Excess ABG Hemoglobin 8.5 L ABG Oxyhemoglobin VBG pH ABG Sodium ABG Potassium ABG Glucose Oxyhemoglobin Sodium Potassium Chloride Carbon Dioxide BUN Creatinine Glucose POC Glucose 135 H 141 H Lactic Acid Calcium Ferritin AST Alkaline Phosphatase Magnesium Lactate Dehydrogenase Total Creatine Kinase CK-MB (CK-2) C-Reactive Protein Total Protein Albumin Troponin T HDL Cholesterol Arterial Blood Glucose Urine WBC (Auto) Urine Creatinine Urine Total Protein Phenytoin Coronavirus (PCR) Crossmatch 07/03/20 07/03/20 07/03/20 16:00 16:07 17:40 WBC RBC Hgb Hct MCHC RDW Lymph % (Auto) [place] % (Auto) Eos % (Auto) Lymph # [place] # Lymph # (Auto) [place] # (Auto) Eos # (Auto) Seg Neutrophils % Seg Neuts % (Manual) Lymphocytes % (Manual) Seg Neutrophils # Seg Neutrophils # Man Lymphocytes # (Manual) Monocytes % (Manual) Eosinophils % (Manual) Monocytes # (Manual) Eosinophils # (Manual) D-Dimer Heparin Anti-Xa Level ABG pH 7.271 L POC ABG pCO2 POC ABG pO2 ABG pO2 126.9 H ABG HCO3 ABG O2 Saturation ABG Base Excess ABG Hemoglobin 8.2 L 8.1 L ABG Oxyhemoglobin VBG pH ABG Sodium 130.3 L ABG Potassium 4.9 H ABG Glucose 163 H Oxyhemoglobin Sodium Potassium Chloride Carbon Dioxide BUN Creatinine Glucose POC Glucose 120 H Lactic Acid Calcium Ferritin AST Alkaline Phosphatase Magnesium Lactate Dehydrogenase Total Creatine Kinase CK-MB (CK-2) C-Reactive Protein Total Protein Albumin Troponin T HDL Cholesterol Arterial Blood Glucose 163 H Urine WBC (Auto) Urine Creatinine Urine Total Protein Phenytoin Coronavirus (PCR) Crossmatch 07/04/20 07/04/20 07/04/20 05:49 11:54 18:00 WBC RBC Hgb Hct MCHC RDW Lymph % (Auto) [place] % (Auto) Eos % (Auto) Lymph # [place] # Lymph # (Auto) [place] # (Auto) Eos # (Auto) Seg Neutrophils % Seg Neuts % (Manual) Lymphocytes % (Manual) Seg Neutrophils # Seg Neutrophils # Man Lymphocytes # (Manual) Monocytes % (Manual) Eosinophils % (Manual) Monocytes # (Manual) Eosinophils # (Manual) D-Dimer Heparin Anti-Xa Level ABG pH POC ABG pCO2 POC ABG pO2 ABG pO2 ABG HCO3 ABG O2 Saturation ABG Base Excess ABG Hemoglobin ABG Oxyhemoglobin VBG pH ABG Sodium ABG Potassium ABG Glucose Oxyhemoglobin Sodium Potassium Chloride Carbon Dioxide BUN Creatinine Glucose POC Glucose 128 H 168 H 133 H Lactic Acid Calcium Ferritin AST Alkaline Phosphatase Magnesium Lactate Dehydrogenase Total Creatine Kinase CK-MB (CK-2) C-Reactive Protein Total Protein Albumin Troponin T HDL Cholesterol Arterial Blood Glucose Urine WBC (Auto) Urine Creatinine Urine Total Protein Phenytoin Coronavirus (PCR) Crossmatch 07/05/20 07/05/20 07/05/20 00:07 01:12 02:30 WBC RBC 2.35 L Hgb 6.9 L Hct 21.1 L MCHC RDW 16.8 H Lymph % (Auto) [place] % (Auto) Eos % (Auto) Lymph # [place] # Lymph # (Auto) [place] # (Auto) Eos # (Auto) Seg Neutrophils % Seg Neuts % (Manual) 74.0 H Lymphocytes % (Manual) 12.0 L Seg Neutrophils # Seg Neutrophils # Man 8.0 H Lymphocytes # (Manual) Monocytes % (Manual) 9.0 H Eosinophils % (Manual) Monocytes # (Manual) 1.0 H Eosinophils # (Manual) D-Dimer Heparin Anti-Xa Level ABG pH POC ABG pCO2 POC ABG pO2 ABG pO2 ABG HCO3 ABG O2 Saturation ABG Base Excess ABG Hemoglobin ABG Oxyhemoglobin VBG pH ABG Sodium ABG Potassium ABG Glucose Oxyhemoglobin Sodium Potassium Chloride Carbon Dioxide BUN Creatinine Glucose POC Glucose 121 H Lactic Acid Calcium Ferritin AST Alkaline Phosphatase Magnesium Lactate Dehydrogenase Total Creatine Kinase CK-MB (CK-2) C-Reactive Protein Total Protein Albumin Troponin T HDL Cholesterol Arterial Blood Glucose Urine WBC (Auto) Urine Creatinine Urine Total Protein Phenytoin Coronavirus (PCR) Crossmatch See Detail 07/05/20 07/05/20 07/05/20 12:09 13:05 18:04 WBC RBC Hgb Hct MCHC RDW Lymph % (Auto) [place] % (Auto) Eos % (Auto) Lymph # [place] # Lymph # (Auto) [place] # (Auto) Eos # (Auto) Seg Neutrophils % Seg Neuts % (Manual) Lymphocytes % (Manual) Seg Neutrophils # Seg Neutrophils # Man Lymphocytes # (Manual) Monocytes % (Manual) Eosinophils % (Manual) Monocytes # (Manual) Eosinophils # (Manual) D-Dimer Heparin Anti-Xa Level ABG pH 7.32 L POC ABG pCO2 POC ABG pO2 ABG pO2 78.3 L ABG HCO3 ABG O2 Saturation ABG Base Excess -2.6 L ABG Hemoglobin 7.3 L ABG Oxyhemoglobin VBG pH ABG Sodium ABG Potassium ABG Glucose Oxyhemoglobin Sodium Potassium Chloride Carbon Dioxide BUN Creatinine Glucose POC Glucose 132 H 160 H Lactic Acid Calcium Ferritin AST Alkaline Phosphatase Magnesium Lactate Dehydrogenase Total Creatine Kinase CK-MB (CK-2) C-Reactive Protein Total Protein Albumin Troponin T HDL Cholesterol Arterial Blood Glucose Urine WBC (Auto) Urine Creatinine Urine Total Protein Phenytoin Coronavirus (PCR) Crossmatch 07/05/20 07/05/20 07/05/20 23:13 23:13 23:43 WBC RBC 2.57 L Hgb 7.7 L Hct 23.0 L MCHC RDW 16.9 H Lymph % (Auto) [place] % (Auto) Eos % (Auto) Lymph # [place] # Lymph # (Auto) [place] # (Auto) Eos # (Auto) Seg Neutrophils % Seg Neuts % (Manual) Lymphocytes % (Manual) Seg Neutrophils # Seg Neutrophils # Man Lymphocytes # (Manual) Monocytes % (Manual) Eosinophils % (Manual) Monocytes # (Manual) Eosinophils # (Manual) D-Dimer Heparin Anti-Xa Level ABG pH POC ABG pCO2 POC ABG pO2 ABG pO2 ABG HCO3 ABG O2 Saturation ABG Base Excess ABG Hemoglobin ABG Oxyhemoglobin VBG pH ABG Sodium ABG Potassium ABG Glucose Oxyhemoglobin Sodium Potassium Chloride Carbon Dioxide 20 L BUN 80 H Creatinine 2.4 H D Glucose 124 H POC Glucose 121 H Lactic Acid Calcium 7.6 L Ferritin AST Alkaline Phosphatase Magnesium Lactate Dehydrogenase Total Creatine Kinase CK-MB (CK-2) C-Reactive Protein Total Protein Albumin Troponin T HDL Cholesterol Arterial Blood Glucose Urine WBC (Auto) Urine Creatinine Urine Total Protein Phenytoin Coronavirus (PCR) Crossmatch 07/06/20 07/06/20 07/06/20 13:20 14:48 17:28 WBC RBC Hgb Hct MCHC RDW Lymph % (Auto) [place] % (Auto) Eos % (Auto) Lymph # [place] # Lymph # (Auto) [place] # (Auto) Eos # (Auto) Seg Neutrophils % Seg Neuts % (Manual) Lymphocytes % (Manual) Seg Neutrophils # Seg Neutrophils # Man Lymphocytes # (Manual) Monocytes % (Manual) Eosinophils % (Manual) Monocytes # (Manual) Eosinophils # (Manual) D-Dimer Heparin Anti-Xa Level ABG pH POC ABG pCO2 POC ABG pO2 ABG pO2 ABG HCO3 ABG O2 Saturation ABG Base Excess ABG Hemoglobin ABG Oxyhemoglobin VBG pH ABG Sodium ABG Potassium ABG Glucose Oxyhemoglobin Sodium 136 L Potassium 5.5 H Chloride Carbon Dioxide 19 L BUN 82 H Creatinine 2.5 H Glucose 113 H POC Glucose 133 H Lactic Acid Calcium 7.7 L Ferritin AST Alkaline Phosphatase Magnesium Lactate Dehydrogenase Total Creatine Kinase CK-MB (CK-2) C-Reactive Protein Total Protein Albumin Troponin T HDL Cholesterol Arterial Blood Glucose Urine WBC (Auto) Urine Creatinine 33.3 H Urine Total Protein Phenytoin Coronavirus (PCR) Crossmatch 07/07/20 07/07/20 07/07/20 00:12 04:15 04:15 WBC RBC 2.28 L Hgb 6.8 L Hct 20.7 L MCHC RDW 16.8 H Lymph % (Auto) [place] % (Auto) Eos % (Auto) Lymph # [place] # Lymph # (Auto) [place] # (Auto) Eos # (Auto) Seg Neutrophils % Seg Neuts % (Manual) Lymphocytes % (Manual) 13.0 L Seg Neutrophils # Seg Neutrophils # Man Lymphocytes # (Manual) 1.0 L Monocytes % (Manual) 11.0 H Eosinophils % (Manual) Monocytes # (Manual) 0.9 H Eosinophils # (Manual) D-Dimer Heparin Anti-Xa Level ABG pH POC ABG pCO2 POC ABG pO2 ABG pO2 ABG HCO3 ABG O2 Saturation ABG Base Excess ABG Hemoglobin ABG Oxyhemoglobin VBG pH ABG Sodium ABG Potassium ABG Glucose Oxyhemoglobin Sodium Potassium Chloride Carbon Dioxide BUN Creatinine Glucose POC Glucose 154 H Lactic Acid Calcium Ferritin AST Alkaline Phosphatase Magnesium 2.50 H Lactate Dehydrogenase Total Creatine Kinase CK-MB (CK-2) C-Reactive Protein Total Protein Albumin Troponin T HDL Cholesterol Arterial Blood Glucose Urine WBC (Auto) Urine Creatinine Urine Total Protein Phenytoin Coronavirus (PCR) Crossmatch 07/07/20 07/07/20 07/07/20 05:31 12:31 13:22 WBC RBC Hgb Hct MCHC RDW Lymph % (Auto) [place] % (Auto) Eos % (Auto) Lymph # [place] # Lymph # (Auto) [place] # (Auto) Eos # (Auto) Seg Neutrophils % Seg Neuts % (Manual) Lymphocytes % (Manual) Seg Neutrophils # Seg Neutrophils # Man Lymphocytes # (Manual) Monocytes % (Manual) Eosinophils % (Manual) Monocytes # (Manual) Eosinophils # (Manual) D-Dimer Heparin Anti-Xa Level ABG pH POC ABG pCO2 POC ABG pO2 ABG pO2 ABG HCO3 ABG O2 Saturation ABG Base Excess ABG Hemoglobin ABG Oxyhemoglobin VBG pH ABG Sodium ABG Potassium ABG Glucose Oxyhemoglobin Sodium Potassium 5.6 H Chloride Carbon Dioxide BUN 86 H Creatinine 2.9 H Glucose 127 H POC Glucose 135 H 131 H Lactic Acid Calcium 8.1 L Ferritin AST Alkaline Phosphatase Magnesium Lactate Dehydrogenase Total Creatine Kinase CK-MB (CK-2) C-Reactive Protein Total Protein Albumin Troponin T HDL Cholesterol Arterial Blood Glucose Urine WBC (Auto) Urine Creatinine Urine Total Protein Phenytoin Coronavirus (PCR) Crossmatch 07/07/20 07/07/20 07/08/20 17:55 23:33 04:14 WBC RBC 3.28 L Hgb 9.7 L Hct 28.9 L D MCHC RDW 16.4 H Lymph % (Auto) 10.3 L [place] % (Auto) 10.0 H Eos % (Auto) Lymph # [place] # Lymph # (Auto) 1.1 L [place] # (Auto) 1.1 H Eos # (Auto) Seg Neutrophils % 77.2 H Seg Neuts % (Manual) Lymphocytes % (Manual) Seg Neutrophils # 8.2 H Seg Neutrophils # Man Lymphocytes # (Manual) Monocytes % (Manual) Eosinophils % (Manual) Monocytes # (Manual) Eosinophils # (Manual) D-Dimer Heparin Anti-Xa Level ABG pH POC ABG pCO2 POC ABG pO2 ABG pO2 ABG HCO3 ABG O2 Saturation ABG Base Excess ABG Hemoglobin ABG Oxyhemoglobin VBG pH ABG Sodium ABG Potassium ABG Glucose Oxyhemoglobin Sodium Potassium Chloride Carbon Dioxide BUN Creatinine Glucose POC Glucose 136 H 159 H Lactic Acid Calcium Ferritin AST Alkaline Phosphatase Magnesium Lactate Dehydrogenase Total Creatine Kinase CK-MB (CK-2) C-Reactive Protein Total Protein Albumin Troponin T HDL Cholesterol Arterial Blood Glucose Urine WBC (Auto) Urine Creatinine Urine Total Protein Phenytoin Coronavirus (PCR) Crossmatch 07/08/20 07/08/20 07/08/20 04:14 12:10 18:10 WBC RBC Hgb Hct MCHC RDW Lymph % (Auto) [place] % (Auto) Eos % (Auto) Lymph # [place] # Lymph # (Auto) [place] # (Auto) Eos # (Auto) Seg Neutrophils % Seg Neuts % (Manual) Lymphocytes % (Manual) Seg Neutrophils # Seg Neutrophils # Man Lymphocytes # (Manual) Monocytes % (Manual) Eosinophils % (Manual) Monocytes # (Manual) Eosinophils # (Manual) D-Dimer Heparin Anti-Xa Level ABG pH POC ABG pCO2 POC ABG pO2 ABG pO2 ABG HCO3 ABG O2 Saturation ABG Base Excess ABG Hemoglobin ABG Oxyhemoglobin VBG pH ABG Sodium ABG Potassium ABG Glucose Oxyhemoglobin Sodium 136 L Potassium Chloride Carbon Dioxide BUN 84 H Creatinine 2.8 H Glucose 109 H POC Glucose 108 H 125 H Lactic Acid Calcium 8.1 L Ferritin AST Alkaline Phosphatase Magnesium 2.50 H Lactate Dehydrogenase Total Creatine Kinase CK-MB (CK-2) C-Reactive Protein Total Protein Albumin Troponin T HDL Cholesterol Arterial Blood Glucose Urine WBC (Auto) Urine Creatinine Urine Total Protein Phenytoin Coronavirus (PCR) Crossmatch 07/08/20 07/09/20 07/09/20 23:50 05:39 11:57 WBC RBC Hgb Hct MCHC RDW Lymph % (Auto) [place] % (Auto) Eos % (Auto) Lymph # [place] # Lymph # (Auto) [place] # (Auto) Eos # (Auto) Seg Neutrophils % Seg Neuts % (Manual) Lymphocytes % (Manual) Seg Neutrophils # Seg Neutrophils # Man Lymphocytes # (Manual) Monocytes % (Manual) Eosinophils % (Manual) Monocytes # (Manual) Eosinophils # (Manual) D-Dimer Heparin Anti-Xa Level ABG pH POC ABG pCO2 POC ABG pO2 ABG pO2 ABG HCO3 ABG O2 Saturation ABG Base Excess ABG Hemoglobin ABG Oxyhemoglobin VBG pH ABG Sodium ABG Potassium ABG Glucose Oxyhemoglobin Sodium Potassium Chloride Carbon Dioxide BUN Creatinine Glucose POC Glucose 141 H 121 H 123 H Lactic Acid Calcium Ferritin AST Alkaline Phosphatase Magnesium Lactate Dehydrogenase Total Creatine Kinase CK-MB (CK-2) C-Reactive Protein Total Protein Albumin Troponin T HDL Cholesterol Arterial Blood Glucose Urine WBC (Auto) Urine Creatinine Urine Total Protein Phenytoin Coronavirus (PCR) Crossmatch 07/09/20 07/10/20 07/10/20 17:56 00:29 05:50 WBC RBC Hgb Hct MCHC RDW Lymph % (Auto) [place] % (Auto) Eos % (Auto) Lymph # [place] # Lymph # (Auto) [place] # (Auto) Eos # (Auto) Seg Neutrophils % Seg Neuts % (Manual) Lymphocytes % (Manual) Seg Neutrophils # Seg Neutrophils # Man Lymphocytes # (Manual) Monocytes % (Manual) Eosinophils % (Manual) Monocytes # (Manual) Eosinophils # (Manual) D-Dimer Heparin Anti-Xa Level ABG pH POC ABG pCO2 POC ABG pO2 ABG pO2 ABG HCO3 ABG O2 Saturation ABG Base Excess ABG Hemoglobin ABG Oxyhemoglobin VBG pH ABG Sodium ABG Potassium ABG Glucose Oxyhemoglobin Sodium Potassium Chloride Carbon Dioxide BUN Creatinine Glucose POC Glucose 119 H 122 H 124 H Lactic Acid Calcium Ferritin AST Alkaline Phosphatase Magnesium Lactate Dehydrogenase Total Creatine Kinase CK-MB (CK-2) C-Reactive Protein Total Protein Albumin Troponin T HDL Cholesterol Arterial Blood Glucose Urine WBC (Auto) Urine Creatinine Urine Total Protein Phenytoin Coronavirus (PCR) Crossmatch 07/10/20 07/10/20 07/10/20 10:41 10:41 12:25 WBC RBC 3.11 L Hgb 9.2 L Hct 27.6 L MCHC RDW 16.6 H Lymph % (Auto) [place] % (Auto) Eos % (Auto) Lymph # [place] # Lymph # (Auto) [place] # (Auto) Eos # (Auto) Seg Neutrophils % Seg Neuts % (Manual) 78.0 H Lymphocytes % (Manual) 11.0 L Seg Neutrophils # Seg Neutrophils # Man Lymphocytes # (Manual) 1.0 L Monocytes % (Manual) Eosinophils % (Manual) Monocytes # (Manual) Eosinophils # (Manual) D-Dimer Heparin Anti-Xa Level ABG pH POC ABG pCO2 POC ABG pO2 ABG pO2 ABG HCO3 ABG O2 Saturation ABG Base Excess ABG Hemoglobin ABG Oxyhemoglobin VBG pH ABG Sodium ABG Potassium ABG Glucose Oxyhemoglobin Sodium Potassium Chloride Carbon Dioxide BUN 85 H Creatinine 2.5 H Glucose 133 H POC Glucose 131 H Lactic Acid Calcium Ferritin AST Alkaline Phosphatase 131 H Magnesium Lactate Dehydrogenase Total Creatine Kinase CK-MB (CK-2) C-Reactive Protein Total Protein 5.2 L Albumin 1.6 L Troponin T HDL Cholesterol Arterial Blood Glucose Urine WBC (Auto) Urine Creatinine Urine Total Protein Phenytoin Coronavirus (PCR) Crossmatch 07/10/20 07/11/20 07/11/20 18:10 00:28 05:57 WBC RBC Hgb Hct MCHC RDW Lymph % (Auto) [place] % (Auto) Eos % (Auto) Lymph # [place] # Lymph # (Auto) [place] # (Auto) Eos # (Auto) Seg Neutrophils % Seg Neuts % (Manual) Lymphocytes % (Manual) Seg Neutrophils # Seg Neutrophils # Man Lymphocytes # (Manual) Monocytes % (Manual) Eosinophils % (Manual) Monocytes # (Manual) Eosinophils # (Manual) D-Dimer Heparin Anti-Xa Level ABG pH POC ABG pCO2 POC ABG pO2 ABG pO2 ABG HCO3 ABG O2 Saturation ABG Base Excess ABG Hemoglobin ABG Oxyhemoglobin VBG pH ABG Sodium ABG Potassium ABG Glucose Oxyhemoglobin Sodium Potassium Chloride Carbon Dioxide BUN Creatinine Glucose POC Glucose 134 H 140 H 148 H Lactic Acid Calcium Ferritin AST Alkaline Phosphatase Magnesium Lactate Dehydrogenase Total Creatine Kinase CK-MB (CK-2) C-Reactive Protein Total Protein Albumin Troponin T HDL Cholesterol Arterial Blood Glucose Urine WBC (Auto) Urine Creatinine Urine Total Protein Phenytoin Coronavirus (PCR) Crossmatch 07/11/20 07/11/20 07/11/20 12:14 17:28 23:49 WBC RBC Hgb Hct MCHC RDW Lymph % (Auto) [place] % (Auto) Eos % (Auto) Lymph # [place] # Lymph # (Auto) [place] # (Auto) Eos # (Auto) Seg Neutrophils % Seg Neuts % (Manual) Lymphocytes % (Manual) Seg Neutrophils # Seg Neutrophils # Man Lymphocytes # (Manual) Monocytes % (Manual) Eosinophils % (Manual) Monocytes # (Manual) Eosinophils # (Manual) D-Dimer Heparin Anti-Xa Level ABG pH POC ABG pCO2 POC ABG pO2 ABG pO2 ABG HCO3 ABG O2 Saturation ABG Base Excess ABG Hemoglobin ABG Oxyhemoglobin VBG pH ABG Sodium ABG Potassium ABG Glucose Oxyhemoglobin Sodium Potassium Chloride Carbon Dioxide BUN Creatinine Glucose POC Glucose 147 H 175 H 114 H Lactic Acid Calcium Ferritin AST Alkaline Phosphatase Magnesium Lactate Dehydrogenase Total Creatine Kinase CK-MB (CK-2) C-Reactive Protein Total Protein Albumin Troponin T HDL Cholesterol Arterial Blood Glucose Urine WBC (Auto) Urine Creatinine Urine Total Protein Phenytoin Coronavirus (PCR) Crossmatch 07/12/20 07/12/20 07/12/20 05:14 05:14 05:44 WBC RBC 2.78 L Hgb 8.5 L Hct 25.3 L MCHC RDW 16.7 H Lymph % (Auto) [place] % (Auto) Eos % (Auto) Lymph # [place] # Lymph # (Auto) [place] # (Auto) Eos # (Auto) Seg Neutrophils % Seg Neuts % (Manual) 81.0 H Lymphocytes % (Manual) 6.0 L Seg Neutrophils # Seg Neutrophils # Man Lymphocytes # (Manual) 0.6 L Monocytes % (Manual) 8.0 H Eosinophils % (Manual) Monocytes # (Manual) Eosinophils # (Manual) D-Dimer Heparin Anti-Xa Level ABG pH POC ABG pCO2 POC ABG pO2 ABG pO2 ABG HCO3 ABG O2 Saturation ABG Base Excess ABG Hemoglobin ABG Oxyhemoglobin VBG pH ABG Sodium ABG Potassium ABG Glucose Oxyhemoglobin Sodium Potassium Chloride Carbon Dioxide BUN 79 H Creatinine 2.2 H Glucose 131 H POC Glucose 116 H Lactic Acid Calcium Ferritin AST Alkaline Phosphatase Magnesium Lactate Dehydrogenase Total Creatine Kinase CK-MB (CK-2) C-Reactive Protein Total Protein Albumin Troponin T HDL Cholesterol Arterial Blood Glucose Urine WBC (Auto) Urine Creatinine Urine Total Protein Phenytoin Coronavirus (PCR) Crossmatch 07/12/20 07/12/20 07/13/20 11:32 17:53 00:18 WBC RBC Hgb Hct MCHC RDW Lymph % (Auto) [place] % (Auto) Eos % (Auto) Lymph # [place] # Lymph # (Auto) [place] # (Auto) Eos # (Auto) Seg Neutrophils % Seg Neuts % (Manual) Lymphocytes % (Manual) Seg Neutrophils # Seg Neutrophils # Man Lymphocytes # (Manual) Monocytes % (Manual) Eosinophils % (Manual) Monocytes # (Manual) Eosinophils # (Manual) D-Dimer Heparin Anti-Xa Level ABG pH POC ABG pCO2 POC ABG pO2 ABG pO2 ABG HCO3 ABG O2 Saturation ABG Base Excess ABG Hemoglobin ABG Oxyhemoglobin VBG pH ABG Sodium ABG Potassium ABG Glucose Oxyhemoglobin Sodium Potassium Chloride Carbon Dioxide BUN Creatinine Glucose POC Glucose 132 H 155 H 162 H Lactic Acid Calcium Ferritin AST Alkaline Phosphatase Magnesium Lactate Dehydrogenase Total Creatine Kinase CK-MB (CK-2) C-Reactive Protein Total Protein Albumin Troponin T HDL Cholesterol Arterial Blood Glucose Urine WBC (Auto) Urine Creatinine Urine Total Protein Phenytoin Coronavirus (PCR) Crossmatch 07/13/20 07/13/20 07/13/20 04:53 04:53 06:14 WBC RBC 2.86 L Hgb 8.4 L Hct 25.7 L MCHC RDW 16.8 H Lymph % (Auto) [place] % (Auto) Eos % (Auto) Lymph # [place] # Lymph # (Auto) [place] # (Auto) Eos # (Auto) Seg Neutrophils % Seg Neuts % (Manual) 84.0 H Lymphocytes % (Manual) 7.0 L Seg Neutrophils # Seg Neutrophils # Man Lymphocytes # (Manual) 0.6 L Monocytes % (Manual) Eosinophils % (Manual) Monocytes # (Manual) Eosinophils # (Manual) D-Dimer Heparin Anti-Xa Level ABG pH POC ABG pCO2 POC ABG pO2 ABG pO2 ABG HCO3 ABG O2 Saturation ABG Base Excess ABG Hemoglobin ABG Oxyhemoglobin VBG pH ABG Sodium ABG Potassium ABG Glucose Oxyhemoglobin Sodium 136 L Potassium Chloride Carbon Dioxide BUN 78 H Creatinine 2.0 H Glucose 130 H POC Glucose 141 H Lactic Acid Calcium Ferritin AST Alkaline Phosphatase Magnesium Lactate Dehydrogenase Total Creatine Kinase CK-MB (CK-2) C-Reactive Protein Total Protein Albumin Troponin T HDL Cholesterol Arterial Blood Glucose Urine WBC (Auto) Urine Creatinine Urine Total Protein Phenytoin Coronavirus (PCR) Crossmatch 07/13/20 07/13/20 07/14/20 12:50 18:27 00:22 WBC RBC Hgb Hct MCHC RDW Lymph % (Auto) [place] % (Auto) Eos % (Auto) Lymph # [place] # Lymph # (Auto) [place] # (Auto) Eos # (Auto) Seg Neutrophils % Seg Neuts % (Manual) Lymphocytes % (Manual) Seg Neutrophils # Seg Neutrophils # Man Lymphocytes # (Manual) Monocytes % (Manual) Eosinophils % (Manual) Monocytes # (Manual) Eosinophils # (Manual) D-Dimer Heparin Anti-Xa Level ABG pH POC ABG pCO2 POC ABG pO2 ABG pO2 ABG HCO3 ABG O2 Saturation ABG Base Excess ABG Hemoglobin ABG Oxyhemoglobin VBG pH ABG Sodium ABG Potassium ABG Glucose Oxyhemoglobin Sodium Potassium Chloride Carbon Dioxide BUN Creatinine Glucose POC Glucose 146 H 149 H 157 H Lactic Acid Calcium Ferritin AST Alkaline Phosphatase Magnesium Lactate Dehydrogenase Total Creatine Kinase CK-MB (CK-2) C-Reactive Protein Total Protein Albumin Troponin T HDL Cholesterol Arterial Blood Glucose Urine WBC (Auto) Urine Creatinine Urine Total Protein Phenytoin Coronavirus (PCR) Crossmatch 07/14/20 07/14/20 07/14/20 05:43 08:04 12:12 WBC RBC Hgb Hct MCHC RDW Lymph % (Auto) [place] % (Auto) Eos % (Auto) Lymph # [place] # Lymph # (Auto) [place] # (Auto) Eos # (Auto) Seg Neutrophils % Seg Neuts % (Manual) Lymphocytes % (Manual) Seg Neutrophils # Seg Neutrophils # Man Lymphocytes # (Manual) Monocytes % (Manual) Eosinophils % (Manual) Monocytes # (Manual) Eosinophils # (Manual) D-Dimer Heparin Anti-Xa Level ABG pH POC ABG pCO2 POC ABG pO2 ABG pO2 ABG HCO3 ABG O2 Saturation ABG Base Excess ABG Hemoglobin ABG Oxyhemoglobin VBG pH ABG Sodium ABG Potassium ABG Glucose Oxyhemoglobin Sodium Potassium Chloride Carbon Dioxide BUN Creatinine Glucose POC Glucose 169 H 185 H Lactic Acid Calcium Ferritin AST Alkaline Phosphatase Magnesium Lactate Dehydrogenase Total Creatine Kinase CK-MB (CK-2) C-Reactive Protein Total Protein Albumin Troponin T HDL Cholesterol Arterial Blood Glucose Urine WBC (Auto) Urine Creatinine Urine Total Protein Phenytoin Coronavirus (PCR) Positive A Crossmatch 07/14/20 07/15/20 07/15/20 17:23 00:04 06:06 WBC RBC Hgb Hct MCHC RDW Lymph % (Auto) [place] % (Auto) Eos % (Auto) Lymph # [place] # Lymph # (Auto) [place] # (Auto) Eos # (Auto) Seg Neutrophils % Seg Neuts % (Manual) Lymphocytes % (Manual) Seg Neutrophils # Seg Neutrophils # Man Lymphocytes # (Manual) Monocytes % (Manual) Eosinophils % (Manual) Monocytes # (Manual) Eosinophils # (Manual) D-Dimer Heparin Anti-Xa Level ABG pH POC ABG pCO2 POC ABG pO2 ABG pO2 ABG HCO3 ABG O2 Saturation ABG Base Excess ABG Hemoglobin ABG Oxyhemoglobin VBG pH ABG Sodium ABG Potassium ABG Glucose Oxyhemoglobin Sodium Potassium Chloride Carbon Dioxide BUN Creatinine Glucose POC Glucose 138 H 121 H 140 H Lactic Acid Calcium Ferritin AST Alkaline Phosphatase Magnesium Lactate Dehydrogenase Total Creatine Kinase CK-MB (CK-2) C-Reactive Protein Total Protein Albumin Troponin T HDL Cholesterol Arterial Blood Glucose Urine WBC (Auto) Urine Creatinine Urine Total Protein Phenytoin Coronavirus (PCR) Crossmatch 07/15/20 07/15/20 07/15/20 12:00 17:53 23:53 WBC RBC Hgb Hct MCHC RDW Lymph % (Auto) [place] % (Auto) Eos % (Auto) Lymph # [place] # Lymph # (Auto) [place] # (Auto) Eos # (Auto) Seg Neutrophils % Seg Neuts % (Manual) Lymphocytes % (Manual) Seg Neutrophils # Seg Neutrophils # Man Lymphocytes # (Manual) Monocytes % (Manual) Eosinophils % (Manual) Monocytes # (Manual) Eosinophils # (Manual) D-Dimer Heparin Anti-Xa Level ABG pH POC ABG pCO2 POC ABG pO2 ABG pO2 ABG HCO3 ABG O2 Saturation ABG Base Excess ABG Hemoglobin ABG Oxyhemoglobin VBG pH ABG Sodium ABG Potassium ABG Glucose Oxyhemoglobin Sodium Potassium Chloride Carbon Dioxide BUN Creatinine Glucose POC Glucose 137 H 161 H 156 H Lactic Acid Calcium Ferritin AST Alkaline Phosphatase Magnesium Lactate Dehydrogenase Total Creatine Kinase CK-MB (CK-2) C-Reactive Protein Total Protein Albumin Troponin T HDL Cholesterol Arterial Blood Glucose Urine WBC (Auto) Urine Creatinine Urine Total Protein Phenytoin Coronavirus (PCR) Crossmatch 07/16/20 07/16/20 07/17/20 05:26 17:44 00:07 WBC RBC Hgb Hct MCHC RDW Lymph % (Auto) [place] % (Auto) Eos % (Auto) Lymph # [place] # Lymph # (Auto) [place] # (Auto) Eos # (Auto) Seg Neutrophils % Seg Neuts % (Manual) Lymphocytes % (Manual) Seg Neutrophils # Seg Neutrophils # Man Lymphocytes # (Manual) Monocytes % (Manual) Eosinophils % (Manual) Monocytes # (Manual) Eosinophils # (Manual) D-Dimer Heparin Anti-Xa Level ABG pH POC ABG pCO2 POC ABG pO2 ABG pO2 ABG HCO3 ABG O2 Saturation ABG Base Excess ABG Hemoglobin ABG Oxyhemoglobin VBG pH ABG Sodium ABG Potassium ABG Glucose Oxyhemoglobin Sodium Potassium Chloride Carbon Dioxide BUN Creatinine Glucose POC Glucose 152 H 126 H 189 H Lactic Acid Calcium Ferritin AST Alkaline Phosphatase Magnesium Lactate Dehydrogenase Total Creatine Kinase CK-MB (CK-2) C-Reactive Protein Total Protein Albumin Troponin T HDL Cholesterol Arterial Blood Glucose Urine WBC (Auto) Urine Creatinine Urine Total Protein Phenytoin Coronavirus (PCR) Crossmatch 07/17/20 07/17/20 07/17/20 12:06 18:20 23:25 WBC RBC Hgb Hct MCHC RDW Lymph % (Auto) [place] % (Auto) Eos % (Auto) Lymph # [place] # Lymph # (Auto) [place] # (Auto) Eos # (Auto) Seg Neutrophils % Seg Neuts % (Manual) Lymphocytes % (Manual) Seg Neutrophils # Seg Neutrophils # Man Lymphocytes # (Manual) Monocytes % (Manual) Eosinophils % (Manual) Monocytes # (Manual) Eosinophils # (Manual) D-Dimer Heparin Anti-Xa Level ABG pH POC ABG pCO2 POC ABG pO2 ABG pO2 ABG HCO3 ABG O2 Saturation ABG Base Excess ABG Hemoglobin ABG Oxyhemoglobin VBG pH ABG Sodium ABG Potassium ABG Glucose Oxyhemoglobin Sodium Potassium Chloride Carbon Dioxide BUN Creatinine Glucose POC Glucose 155 H 206 H 161 H Lactic Acid Calcium Ferritin AST Alkaline Phosphatase Magnesium Lactate Dehydrogenase Total Creatine Kinase CK-MB (CK-2) C-Reactive Protein Total Protein Albumin Troponin T HDL Cholesterol Arterial Blood Glucose Urine WBC (Auto) Urine Creatinine Urine Total Protein Phenytoin Coronavirus (PCR) Crossmatch 07/18/20 07/18/20 07/18/20 04:24 05:16 11:53 WBC RBC Hgb Hct MCHC RDW Lymph % (Auto) [place] % (Auto) Eos % (Auto) Lymph # [place] # Lymph # (Auto) [place] # (Auto) Eos # (Auto) Seg Neutrophils % Seg Neuts % (Manual) Lymphocytes % (Manual) Seg Neutrophils # Seg Neutrophils # Man Lymphocytes # (Manual) Monocytes % (Manual) Eosinophils % (Manual) Monocytes # (Manual) Eosinophils # (Manual) D-Dimer Heparin Anti-Xa Level ABG pH POC ABG pCO2 POC ABG pO2 ABG pO2 ABG HCO3 ABG O2 Saturation ABG Base Excess ABG Hemoglobin 8.8 L ABG Oxyhemoglobin VBG pH ABG Sodium 131.6 L ABG Potassium 4.9 H ABG Glucose 131 H Oxyhemoglobin Sodium Potassium Chloride Carbon Dioxide BUN Creatinine Glucose POC Glucose 140 H 176 H Lactic Acid Calcium Ferritin AST Alkaline Phosphatase Magnesium Lactate Dehydrogenase Total Creatine Kinase CK-MB (CK-2) C-Reactive Protein Total Protein Albumin Troponin T HDL Cholesterol Arterial Blood Glucose 131 H Urine WBC (Auto) Urine Creatinine Urine Total Protein Phenytoin Coronavirus (PCR) Crossmatch 07/18/20 07/18/20 07/19/20 18:11 23:51 01:05 WBC RBC 2.76 L Hgb 7.9 L Hct 24.5 L MCHC RDW 17.6 H Lymph % (Auto) 11.6 L [place] % (Auto) 13.1 H Eos % (Auto) Lymph # [place] # Lymph # (Auto) 1.0 L [place] # (Auto) 1.1 H Eos # (Auto) Seg Neutrophils % 70.9 H Seg Neuts % (Manual) Lymphocytes % (Manual) Seg Neutrophils # Seg Neutrophils # Man Lymphocytes # (Manual) Monocytes % (Manual) Eosinophils % (Manual) Monocytes # (Manual) Eosinophils # (Manual) D-Dimer Heparin Anti-Xa Level ABG pH POC ABG pCO2 POC ABG pO2 ABG pO2 ABG HCO3 ABG O2 Saturation ABG Base Excess ABG Hemoglobin ABG Oxyhemoglobin VBG pH ABG Sodium ABG Potassium ABG Glucose Oxyhemoglobin Sodium Potassium Chloride Carbon Dioxide BUN Creatinine Glucose POC Glucose 143 H 159 H Lactic Acid Calcium Ferritin AST Alkaline Phosphatase Magnesium Lactate Dehydrogenase Total Creatine Kinase CK-MB (CK-2) C-Reactive Protein Total Protein Albumin Troponin T HDL Cholesterol Arterial Blood Glucose Urine WBC (Auto) Urine Creatinine Urine Total Protein Phenytoin Coronavirus (PCR) Crossmatch 07/19/20 07/19/20 07/19/20 01:05 05:54 12:46 WBC RBC Hgb Hct MCHC RDW Lymph % (Auto) [place] % (Auto) Eos % (Auto) Lymph # [place] # Lymph # (Auto) [place] # (Auto) Eos # (Auto) Seg Neutrophils % Seg Neuts % (Manual) Lymphocytes % (Manual) Seg Neutrophils # Seg Neutrophils # Man Lymphocytes # (Manual) Monocytes % (Manual) Eosinophils % (Manual) Monocytes # (Manual) Eosinophils # (Manual) D-Dimer Heparin Anti-Xa Level ABG pH POC ABG pCO2 POC ABG pO2 ABG pO2 ABG HCO3 ABG O2 Saturation ABG Base Excess ABG Hemoglobin ABG Oxyhemoglobin VBG pH ABG Sodium ABG Potassium ABG Glucose Oxyhemoglobin Sodium Potassium Chloride Carbon Dioxide BUN 86 H Creatinine 1.7 H Glucose 149 H POC Glucose 176 H 127 H Lactic Acid Calcium Ferritin AST Alkaline Phosphatase Magnesium Lactate Dehydrogenase Total Creatine Kinase CK-MB (CK-2) C-Reactive Protein Total Protein Albumin Troponin T HDL Cholesterol Arterial Blood Glucose Urine WBC (Auto) Urine Creatinine Urine Total Protein Phenytoin Coronavirus (PCR) Crossmatch 07/19/20 07/20/20 07/20/20 17:48 00:34 05:28 WBC RBC Hgb Hct MCHC RDW Lymph % (Auto) [place] % (Auto) Eos % (Auto) Lymph # [place] # Lymph # (Auto) [place] # (Auto) Eos # (Auto) Seg Neutrophils % Seg Neuts % (Manual) Lymphocytes % (Manual) Seg Neutrophils # Seg Neutrophils # Man Lymphocytes # (Manual) Monocytes % (Manual) Eosinophils % (Manual) Monocytes # (Manual) Eosinophils # (Manual) D-Dimer Heparin Anti-Xa Level ABG pH POC ABG pCO2 POC ABG pO2 ABG pO2 ABG HCO3 ABG O2 Saturation ABG Base Excess ABG Hemoglobin ABG Oxyhemoglobin VBG pH ABG Sodium ABG Potassium ABG Glucose Oxyhemoglobin Sodium Potassium Chloride Carbon Dioxide BUN Creatinine Glucose POC Glucose 123 H 147 H 110 H Lactic Acid Calcium Ferritin AST Alkaline Phosphatase Magnesium Lactate Dehydrogenase Total Creatine Kinase CK-MB (CK-2) C-Reactive Protein Total Protein Albumin Troponin T HDL Cholesterol Arterial Blood Glucose Urine WBC (Auto) Urine Creatinine Urine Total Protein Phenytoin Coronavirus (PCR) Crossmatch 07/20/20 07/20/20 07/21/20 12:10 17:00 00:11 WBC RBC Hgb Hct MCHC RDW Lymph % (Auto) [place] % (Auto) Eos % (Auto) Lymph # [place] # Lymph # (Auto) [place] # (Auto) Eos # (Auto) Seg Neutrophils % Seg Neuts % (Manual) Lymphocytes % (Manual) Seg Neutrophils # Seg Neutrophils # Man Lymphocytes # (Manual) Monocytes % (Manual) Eosinophils % (Manual) Monocytes # (Manual) Eosinophils # (Manual) D-Dimer Heparin Anti-Xa Level ABG pH POC ABG pCO2 POC ABG pO2 ABG pO2 ABG HCO3 ABG O2 Saturation ABG Base Excess ABG Hemoglobin ABG Oxyhemoglobin VBG pH ABG Sodium ABG Potassium ABG Glucose Oxyhemoglobin Sodium Potassium Chloride Carbon Dioxide BUN Creatinine Glucose POC Glucose 149 H 173 H 128 H Lactic Acid Calcium Ferritin AST Alkaline Phosphatase Magnesium Lactate Dehydrogenase Total Creatine Kinase CK-MB (CK-2) C-Reactive Protein Total Protein Albumin Troponin T HDL Cholesterol Arterial Blood Glucose Urine WBC (Auto) Urine Creatinine Urine Total Protein Phenytoin Coronavirus (PCR) Crossmatch 07/21/20 07/21/20 07/21/20 05:30 12:21 18:17 WBC RBC Hgb Hct MCHC RDW Lymph % (Auto) [place] % (Auto) Eos % (Auto) Lymph # [place] # Lymph # (Auto) [place] # (Auto) Eos # (Auto) Seg Neutrophils % Seg Neuts % (Manual) Lymphocytes % (Manual) Seg Neutrophils # Seg Neutrophils # Man Lymphocytes # (Manual) Monocytes % (Manual) Eosinophils % (Manual) Monocytes # (Manual) Eosinophils # (Manual) D-Dimer Heparin Anti-Xa Level ABG pH POC ABG pCO2 POC ABG pO2 ABG pO2 ABG HCO3 ABG O2 Saturation ABG Base Excess ABG Hemoglobin ABG Oxyhemoglobin VBG pH ABG Sodium ABG Potassium ABG Glucose Oxyhemoglobin Sodium Potassium Chloride Carbon Dioxide BUN Creatinine Glucose POC Glucose 153 H 144 H 160 H Lactic Acid Calcium Ferritin AST Alkaline Phosphatase Magnesium Lactate Dehydrogenase Total Creatine Kinase CK-MB (CK-2) C-Reactive Protein Total Protein Albumin Troponin T HDL Cholesterol Arterial Blood Glucose Urine WBC (Auto) Urine Creatinine Urine Total Protein Phenytoin Coronavirus (PCR) Crossmatch 07/22/20 07/22/20 07/22/20 00:45 05:52 12:03 WBC RBC Hgb Hct MCHC RDW Lymph % (Auto) [place] % (Auto) Eos % (Auto) Lymph # [place] # Lymph # (Auto) [place] # (Auto) Eos # (Auto) Seg Neutrophils % Seg Neuts % (Manual) Lymphocytes % (Manual) Seg Neutrophils # Seg Neutrophils # Man Lymphocytes # (Manual) Monocytes % (Manual) Eosinophils % (Manual) Monocytes # (Manual) Eosinophils # (Manual) D-Dimer Heparin Anti-Xa Level ABG pH POC ABG pCO2 POC ABG pO2 ABG pO2 ABG HCO3 ABG O2 Saturation ABG Base Excess ABG Hemoglobin ABG Oxyhemoglobin VBG pH ABG Sodium ABG Potassium ABG Glucose Oxyhemoglobin Sodium Potassium Chloride Carbon Dioxide BUN Creatinine Glucose POC Glucose 128 H 126 H 157 H Lactic Acid Calcium Ferritin AST Alkaline Phosphatase Magnesium Lactate Dehydrogenase Total Creatine Kinase CK-MB (CK-2) C-Reactive Protein Total Protein Albumin Troponin T HDL Cholesterol Arterial Blood Glucose Urine WBC (Auto) Urine Creatinine Urine Total Protein Phenytoin Coronavirus (PCR) Crossmatch 07/22/20 07/22/20 07/23/20 18:23 23:20 06:06 WBC RBC Hgb Hct MCHC RDW Lymph % (Auto) [place] % (Auto) Eos % (Auto) Lymph # [place] # Lymph # (Auto) [place] # (Auto) Eos # (Auto) Seg Neutrophils % Seg Neuts % (Manual) Lymphocytes % (Manual) Seg Neutrophils # Seg Neutrophils # Man Lymphocytes # (Manual) Monocytes % (Manual) Eosinophils % (Manual) Monocytes # (Manual) Eosinophils # (Manual) D-Dimer Heparin Anti-Xa Level ABG pH POC ABG pCO2 POC ABG pO2 ABG pO2 ABG HCO3 ABG O2 Saturation ABG Base Excess ABG Hemoglobin ABG Oxyhemoglobin VBG pH ABG Sodium ABG Potassium ABG Glucose Oxyhemoglobin Sodium Potassium Chloride Carbon Dioxide BUN Creatinine Glucose POC Glucose 152 H 122 H 143 H Lactic Acid Calcium Ferritin AST Alkaline Phosphatase Magnesium Lactate Dehydrogenase Total Creatine Kinase CK-MB (CK-2) C-Reactive Protein Total Protein Albumin Troponin T HDL Cholesterol Arterial Blood Glucose Urine WBC (Auto) Urine Creatinine Urine Total Protein Phenytoin Coronavirus (PCR) Crossmatch 07/23/20 07/23/20 07/23/20 12:11 17:38 19:23 WBC RBC Hgb Hct MCHC RDW Lymph % (Auto) [place] % (Auto) Eos % (Auto) Lymph # [place] # Lymph # (Auto) [place] # (Auto) Eos # (Auto) Seg Neutrophils % Seg Neuts % (Manual) Lymphocytes % (Manual) Seg Neutrophils # Seg Neutrophils # Man Lymphocytes # (Manual) Monocytes % (Manual) Eosinophils % (Manual) Monocytes # (Manual) Eosinophils # (Manual) D-Dimer Heparin Anti-Xa Level ABG pH POC ABG pCO2 POC ABG pO2 ABG pO2 ABG HCO3 ABG O2 Saturation ABG Base Excess ABG Hemoglobin ABG Oxyhemoglobin VBG pH ABG Sodium ABG Potassium ABG Glucose Oxyhemoglobin Sodium 129 L D Potassium 5.8 H Chloride 95.6 L Carbon Dioxide BUN 98 H Creatinine 2.1 H Glucose 167 H POC Glucose 210 H 181 H Lactic Acid Calcium Ferritin AST Alkaline Phosphatase Magnesium Lactate Dehydrogenase Total Creatine Kinase CK-MB (CK-2) C-Reactive Protein Total Protein Albumin 2.2 L Troponin T HDL Cholesterol Arterial Blood Glucose Urine WBC (Auto) Urine Creatinine Urine Total Protein Phenytoin Coronavirus (PCR) Crossmatch 07/24/20 07/24/20 07/24/20 00:00 04:29 04:29 WBC RBC 2.53 L Hgb 7.5 L Hct 22.8 L MCHC RDW 16.8 H Lymph % (Auto) 9.4 L [place] % (Auto) 10.4 H Eos % (Auto) 5.9 H Lymph # [place] # Lymph # (Auto) 0.8 L [place] # (Auto) 0.9 H Eos # (Auto) 0.5 H Seg Neutrophils % 73.5 H Seg Neuts % (Manual) Lymphocytes % (Manual) Seg Neutrophils # Seg Neutrophils # Man Lymphocytes # (Manual) Monocytes % (Manual) Eosinophils % (Manual) Monocytes # (Manual) Eosinophils # (Manual) D-Dimer Heparin Anti-Xa Level ABG pH POC ABG pCO2 POC ABG pO2 ABG pO2 ABG HCO3 ABG O2 Saturation ABG Base Excess ABG Hemoglobin ABG Oxyhemoglobin VBG pH ABG Sodium ABG Potassium ABG Glucose Oxyhemoglobin Sodium Potassium Chloride Carbon Dioxide BUN Creatinine Glucose POC Glucose 201 H Lactic Acid Calcium Ferritin AST Alkaline Phosphatase Magnesium Lactate Dehydrogenase Total Creatine Kinase CK-MB (CK-2) C-Reactive Protein Total Protein Albumin Troponin T HDL Cholesterol Arterial Blood Glucose Urine WBC (Auto) Urine Creatinine Urine Total Protein Phenytoin 9.4 L Coronavirus (PCR) Crossmatch 07/24/20 07/24/20 07/24/20 04:29 05:11 12:14 WBC RBC Hgb Hct MCHC RDW Lymph % (Auto) [place] % (Auto) Eos % (Auto) Lymph # [place] # Lymph # (Auto) [place] # (Auto) Eos # (Auto) Seg Neutrophils % Seg Neuts % (Manual) Lymphocytes % (Manual) Seg Neutrophils # Seg Neutrophils # Man Lymphocytes # (Manual) Monocytes % (Manual) Eosinophils % (Manual) Monocytes # (Manual) Eosinophils # (Manual) D-Dimer Heparin Anti-Xa Level ABG pH POC ABG pCO2 POC ABG pO2 ABG pO2 ABG HCO3 ABG O2 Saturation ABG Base Excess ABG Hemoglobin ABG Oxyhemoglobin VBG pH ABG Sodium ABG Potassium ABG Glucose Oxyhemoglobin Sodium 134 L Potassium 5.5 H Chloride Carbon Dioxide BUN 97 H Creatinine 2.2 H Glucose 149 H POC Glucose 142 H 146 H Lactic Acid Calcium Ferritin AST Alkaline Phosphatase Magnesium 2.60 H Lactate Dehydrogenase Total Creatine Kinase CK-MB (CK-2) C-Reactive Protein Total Protein Albumin Troponin T HDL Cholesterol Arterial Blood Glucose Urine WBC (Auto) Urine Creatinine Urine Total Protein Phenytoin Coronavirus (PCR) Crossmatch 07/24/20 07/24/20 07/25/20 18:12 21:00 00:08 WBC RBC Hgb Hct MCHC RDW Lymph % (Auto) [place] % (Auto) Eos % (Auto) Lymph # [place] # Lymph # (Auto) [place] # (Auto) Eos # (Auto) Seg Neutrophils % Seg Neuts % (Manual) Lymphocytes % (Manual) Seg Neutrophils # Seg Neutrophils # Man Lymphocytes # (Manual) Monocytes % (Manual) Eosinophils % (Manual) Monocytes # (Manual) Eosinophils # (Manual) D-Dimer Heparin Anti-Xa Level ABG pH POC ABG pCO2 POC ABG pO2 ABG pO2 ABG HCO3 ABG O2 Saturation ABG Base Excess ABG Hemoglobin ABG Oxyhemoglobin VBG pH ABG Sodium ABG Potassium ABG Glucose Oxyhemoglobin Sodium Potassium Chloride Carbon Dioxide BUN Creatinine Glucose POC Glucose 182 H 170 H 129 H Lactic Acid Calcium Ferritin AST Alkaline Phosphatase Magnesium Lactate Dehydrogenase Total Creatine Kinase CK-MB (CK-2) C-Reactive Protein Total Protein Albumin Troponin T HDL Cholesterol Arterial Blood Glucose Urine WBC (Auto) Urine Creatinine Urine Total Protein Phenytoin Coronavirus (PCR) Crossmatch 07/25/20 07/25/20 07/25/20 04:24 04:24 12:19 WBC RBC 2.51 L Hgb 7.5 L Hct 22.3 L MCHC RDW 17.4 H Lymph % (Auto) [place] % (Auto) Eos % (Auto) Lymph # [place] # Lymph # (Auto) [place] # (Auto) Eos # (Auto) Seg Neutrophils % Seg Neuts % (Manual) Lymphocytes % (Manual) Seg Neutrophils # Seg Neutrophils # Man Lymphocytes # (Manual) Monocytes % (Manual) Eosinophils % (Manual) Monocytes # (Manual) Eosinophils # (Manual) D-Dimer Heparin Anti-Xa Level ABG pH POC ABG pCO2 POC ABG pO2 ABG pO2 ABG HCO3 ABG O2 Saturation ABG Base Excess ABG Hemoglobin ABG Oxyhemoglobin VBG pH ABG Sodium ABG Potassium ABG Glucose Oxyhemoglobin Sodium 132 L Potassium Chloride 95.1 L Carbon Dioxide 21 L BUN 95 H Creatinine 2.5 H Glucose 108 H POC Glucose 122 H Lactic Acid Calcium Ferritin AST Alkaline Phosphatase Magnesium Lactate Dehydrogenase Total Creatine Kinase CK-MB (CK-2) C-Reactive Protein Total Protein Albumin Troponin T HDL Cholesterol Arterial Blood Glucose Urine WBC (Auto) Urine Creatinine Urine Total Protein Phenytoin Coronavirus (PCR) Crossmatch 07/25/20 07/25/20 07/26/20 18:11 23:24 04:22 WBC RBC Hgb Hct MCHC RDW Lymph % (Auto) [place] % (Auto) Eos % (Auto) Lymph # [place] # Lymph # (Auto) [place] # (Auto) Eos # (Auto) Seg Neutrophils % Seg Neuts % (Manual) Lymphocytes % (Manual) Seg Neutrophils # Seg Neutrophils # Man Lymphocytes # (Manual) Monocytes % (Manual) Eosinophils % (Manual) Monocytes # (Manual) Eosinophils # (Manual) D-Dimer Heparin Anti-Xa Level ABG pH POC ABG pCO2 POC ABG pO2 ABG pO2 ABG HCO3 ABG O2 Saturation ABG Base Excess ABG Hemoglobin ABG Oxyhemoglobin VBG pH ABG Sodium ABG Potassium ABG Glucose Oxyhemoglobin Sodium 132 L Potassium Chloride 96.2 L Carbon Dioxide 21 L BUN 99 H Creatinine 2.5 H Glucose 132 H POC Glucose 137 H 117 H Lactic Acid Calcium 8.2 L Ferritin AST Alkaline Phosphatase Magnesium Lactate Dehydrogenase Total Creatine Kinase CK-MB (CK-2) C-Reactive Protein Total Protein Albumin Troponin T HDL Cholesterol Arterial Blood Glucose Urine WBC (Auto) Urine Creatinine Urine Total Protein Phenytoin Coronavirus (PCR) Crossmatch 07/26/20 07/26/20 07/26/20 05:58 12:21 17:31 WBC RBC Hgb Hct MCHC RDW Lymph % (Auto) [place] % (Auto) Eos % (Auto) Lymph # [place] # Lymph # (Auto) [place] # (Auto) Eos # (Auto) Seg Neutrophils % Seg Neuts % (Manual) Lymphocytes % (Manual) Seg Neutrophils # Seg Neutrophils # Man Lymphocytes # (Manual) Monocytes % (Manual) Eosinophils % (Manual) Monocytes # (Manual) Eosinophils # (Manual) D-Dimer Heparin Anti-Xa Level ABG pH POC ABG pCO2 POC ABG pO2 ABG pO2 ABG HCO3 ABG O2 Saturation ABG Base Excess ABG Hemoglobin ABG Oxyhemoglobin VBG pH ABG Sodium ABG Potassium ABG Glucose Oxyhemoglobin Sodium Potassium Chloride Carbon Dioxide BUN Creatinine Glucose POC Glucose 110 H 142 H 180 H Lactic Acid Calcium Ferritin AST Alkaline Phosphatase Magnesium Lactate Dehydrogenase Total Creatine Kinase CK-MB (CK-2) C-Reactive Protein Total Protein Albumin Troponin T HDL Cholesterol Arterial Blood Glucose Urine WBC (Auto) Urine Creatinine Urine Total Protein Phenytoin Coronavirus (PCR) Crossmatch 07/26/20 07/27/20 07/27/20 23:36 03:36 05:36 WBC RBC 2.49 L Hgb 7.3 L Hct 22.2 L MCHC RDW 17.2 H Lymph % (Auto) 11.0 L [place] % (Auto) 11.7 H Eos % (Auto) Lymph # [place] # Lymph # (Auto) 0.8 L [place] # (Auto) 0.9 H Eos # (Auto) Seg Neutrophils % 72.3 H Seg Neuts % (Manual) Lymphocytes % (Manual) Seg Neutrophils # Seg Neutrophils # Man Lymphocytes # (Manual) Monocytes % (Manual) Eosinophils % (Manual) Monocytes # (Manual) Eosinophils # (Manual) D-Dimer Heparin Anti-Xa Level ABG pH POC ABG pCO2 POC ABG pO2 ABG pO2 ABG HCO3 ABG O2 Saturation ABG Base Excess ABG Hemoglobin ABG Oxyhemoglobin VBG pH ABG Sodium ABG Potassium ABG Glucose Oxyhemoglobin Sodium Potassium Chloride Carbon Dioxide BUN Creatinine Glucose POC Glucose 162 H 118 H Lactic Acid Calcium Ferritin AST Alkaline Phosphatase Magnesium Lactate Dehydrogenase Total Creatine Kinase CK-MB (CK-2) C-Reactive Protein Total Protein Albumin Troponin T HDL Cholesterol Arterial Blood Glucose Urine WBC (Auto) Urine Creatinine Urine Total Protein Phenytoin Coronavirus (PCR) Crossmatch 07/27/20 07/27/20 07/27/20 05:36 12:19 17:36 WBC RBC Hgb Hct MCHC RDW Lymph % (Auto) [place] % (Auto) Eos % (Auto) Lymph # [place] # Lymph # (Auto) [place] # (Auto) Eos # (Auto) Seg Neutrophils % Seg Neuts % (Manual) Lymphocytes % (Manual) Seg Neutrophils # Seg Neutrophils # Man Lymphocytes # (Manual) Monocytes % (Manual) Eosinophils % (Manual) Monocytes # (Manual) Eosinophils # (Manual) D-Dimer Heparin Anti-Xa Level ABG pH POC ABG pCO2 POC ABG pO2 ABG pO2 ABG HCO3 ABG O2 Saturation ABG Base Excess ABG Hemoglobin ABG Oxyhemoglobin VBG pH ABG Sodium ABG Potassium ABG Glucose Oxyhemoglobin Sodium 135 L Potassium 5.3 H Chloride Carbon Dioxide 21 L BUN 103 H Creatinine 2.6 H Glucose 113 H POC Glucose 131 H 151 H Lactic Acid Calcium 8.1 L Ferritin AST Alkaline Phosphatase Magnesium Lactate Dehydrogenase Total Creatine Kinase CK-MB (CK-2) C-Reactive Protein Total Protein Albumin Troponin T HDL Cholesterol Arterial Blood Glucose Urine WBC (Auto) Urine Creatinine Urine Total Protein Phenytoin Coronavirus (PCR) Crossmatch 07/27/20 07/28/20 07/28/20 23:29 04:30 04:30 WBC RBC 2.50 L Hgb 7.3 L Hct 22.2 L MCHC RDW 17.3 H Lymph % (Auto) 8.7 L [place] % (Auto) 8.3 H Eos % (Auto) Lymph # [place] # Lymph # (Auto) 0.7 L [place] # (Auto) Eos # (Auto) Seg Neutrophils % 79.1 H Seg Neuts % (Manual) Lymphocytes % (Manual) Seg Neutrophils # Seg Neutrophils # Man Lymphocytes # (Manual) Monocytes % (Manual) Eosinophils % (Manual) Monocytes # (Manual) Eosinophils # (Manual) D-Dimer Heparin Anti-Xa Level ABG pH POC ABG pCO2 POC ABG pO2 ABG pO2 ABG HCO3 ABG O2 Saturation ABG Base Excess ABG Hemoglobin ABG Oxyhemoglobin VBG pH ABG Sodium ABG Potassium ABG Glucose Oxyhemoglobin Sodium 135 L Potassium 5.2 H Chloride 96.8 L Carbon Dioxide 20 L BUN 107 H Creatinine 2.9 H Glucose POC Glucose 124 H Lactic Acid Calcium 8.2 L Ferritin AST Alkaline Phosphatase Magnesium 2.70 H Lactate Dehydrogenase Total Creatine Kinase CK-MB (CK-2) C-Reactive Protein Total Protein Albumin Troponin T HDL Cholesterol Arterial Blood Glucose Urine WBC (Auto) Urine Creatinine Urine Total Protein Phenytoin Coronavirus (PCR) Crossmatch 07/28/20 07/29/20 07/29/20 17:35 00:11 06:45 WBC RBC Hgb Hct MCHC RDW Lymph % (Auto) [place] % (Auto) Eos % (Auto) Lymph # [place] # Lymph # (Auto) [place] # (Auto) Eos # (Auto) Seg Neutrophils % Seg Neuts % (Manual) Lymphocytes % (Manual) Seg Neutrophils # Seg Neutrophils # Man Lymphocytes # (Manual) Monocytes % (Manual) Eosinophils % (Manual) Monocytes # (Manual) Eosinophils # (Manual) D-Dimer Heparin Anti-Xa Level ABG pH POC ABG pCO2 POC ABG pO2 ABG pO2 ABG HCO3 ABG O2 Saturation ABG Base Excess ABG Hemoglobin ABG Oxyhemoglobin VBG pH ABG Sodium ABG Potassium ABG Glucose Oxyhemoglobin Sodium Potassium Chloride Carbon Dioxide BUN Creatinine Glucose POC Glucose 146 H 143 H 179 H Lactic Acid Calcium Ferritin AST Alkaline Phosphatase Magnesium Lactate Dehydrogenase Total Creatine Kinase CK-MB (CK-2) C-Reactive Protein Total Protein Albumin Troponin T HDL Cholesterol Arterial Blood Glucose Urine WBC (Auto) Urine Creatinine Urine Total Protein Phenytoin Coronavirus (PCR) Crossmatch 07/29/20 07/29/20 07/29/20 11:54 13:01 13:01 WBC RBC 2.40 L Hgb 7.1 L Hct 20.9 L MCHC RDW 17.5 H Lymph % (Auto) [place] % (Auto) Eos % (Auto) Lymph # [place] # Lymph # (Auto) [place] # (Auto) Eos # (Auto) Seg Neutrophils % Seg Neuts % (Manual) 86.0 H Lymphocytes % (Manual) 6.0 L Seg Neutrophils # Seg Neutrophils # Man 8.9 H Lymphocytes # (Manual) 0.6 L Monocytes % (Manual) 8.0 H Eosinophils % (Manual) Monocytes # (Manual) Eosinophils # (Manual) D-Dimer Heparin Anti-Xa Level ABG pH POC ABG pCO2 POC ABG pO2 ABG pO2 ABG HCO3 ABG O2 Saturation ABG Base Excess ABG Hemoglobin ABG Oxyhemoglobin VBG pH ABG Sodium ABG Potassium ABG Glucose Oxyhemoglobin Sodium 129 L Potassium Chloride 92.9 L Carbon Dioxide BUN 112 H Creatinine 3.0 H Glucose 142 H POC Glucose 170 H Lactic Acid Calcium 7.9 L Ferritin AST Alkaline Phosphatase Magnesium Lactate Dehydrogenase Total Creatine Kinase CK-MB (CK-2) C-Reactive Protein Total Protein Albumin Troponin T HDL Cholesterol Arterial Blood Glucose Urine WBC (Auto) Urine Creatinine Urine Total Protein Phenytoin Coronavirus (PCR) Crossmatch 07/29/20 07/30/20 07/30/20 22:45 05:01 11:45 WBC RBC Hgb Hct MCHC RDW Lymph % (Auto) [place] % (Auto) Eos % (Auto) Lymph # [place] # Lymph # (Auto) [place] # (Auto) Eos # (Auto) Seg Neutrophils % Seg Neuts % (Manual) Lymphocytes % (Manual) Seg Neutrophils # Seg Neutrophils # Man Lymphocytes # (Manual) Monocytes % (Manual) Eosinophils % (Manual) Monocytes # (Manual) Eosinophils # (Manual) D-Dimer Heparin Anti-Xa Level ABG pH POC ABG pCO2 POC ABG pO2 ABG pO2 ABG HCO3 ABG O2 Saturation ABG Base Excess ABG Hemoglobin ABG Oxyhemoglobin VBG pH ABG Sodium ABG Potassium ABG Glucose Oxyhemoglobin Sodium Potassium Chloride Carbon Dioxide BUN Creatinine Glucose POC Glucose 129 H 150 H 130 H Lactic Acid Calcium Ferritin AST Alkaline Phosphatase Magnesium Lactate Dehydrogenase Total Creatine Kinase CK-MB (CK-2) C-Reactive Protein Total Protein Albumin Troponin T HDL Cholesterol Arterial Blood Glucose Urine WBC (Auto) Urine Creatinine Urine Total Protein Phenytoin Coronavirus (PCR) Crossmatch 07/30/20 07/30/20 07/30/20 17:54 21:26 23:58 WBC RBC Hgb Hct MCHC RDW Lymph % (Auto) [place] % (Auto) Eos % (Auto) Lymph # [place] # Lymph # (Auto) [place] # (Auto) Eos # (Auto) Seg Neutrophils % Seg Neuts % (Manual) Lymphocytes % (Manual) Seg Neutrophils # Seg Neutrophils # Man Lymphocytes # (Manual) Monocytes % (Manual) Eosinophils % (Manual) Monocytes # (Manual) Eosinophils # (Manual) D-Dimer Heparin Anti-Xa Level ABG pH POC ABG pCO2 POC ABG pO2 ABG pO2 ABG HCO3 ABG O2 Saturation ABG Base Excess ABG Hemoglobin ABG Oxyhemoglobin VBG pH ABG Sodium ABG Potassium ABG Glucose Oxyhemoglobin Sodium Potassium Chloride Carbon Dioxide BUN Creatinine Glucose POC Glucose 143 H 124 H 142 H Lactic Acid Calcium Ferritin AST Alkaline Phosphatase Magnesium Lactate Dehydrogenase Total Creatine Kinase CK-MB (CK-2) C-Reactive Protein Total Protein Albumin Troponin T HDL Cholesterol Arterial Blood Glucose Urine WBC (Auto) Urine Creatinine Urine Total Protein Phenytoin Coronavirus (PCR) Crossmatch 07/31/20 07/31/20 07/31/20 05:43 11:35 18:07 WBC RBC Hgb Hct MCHC RDW Lymph % (Auto) [place] % (Auto) Eos % (Auto) Lymph # [place] # Lymph # (Auto) [place] # (Auto) Eos # (Auto) Seg Neutrophils % Seg Neuts % (Manual) Lymphocytes % (Manual) Seg Neutrophils # Seg Neutrophils # Man Lymphocytes # (Manual) Monocytes % (Manual) Eosinophils % (Manual) Monocytes # (Manual) Eosinophils # (Manual) D-Dimer Heparin Anti-Xa Level ABG pH POC ABG pCO2 POC ABG pO2 ABG pO2 ABG HCO3 ABG O2 Saturation ABG Base Excess ABG Hemoglobin ABG Oxyhemoglobin VBG pH ABG Sodium ABG Potassium ABG Glucose Oxyhemoglobin Sodium Potassium Chloride Carbon Dioxide BUN Creatinine Glucose POC Glucose 152 H 179 H 129 H Lactic Acid Calcium Ferritin AST Alkaline Phosphatase Magnesium Lactate Dehydrogenase Total Creatine Kinase CK-MB (CK-2) C-Reactive Protein Total Protein Albumin Troponin T HDL Cholesterol Arterial Blood Glucose Urine WBC (Auto) Urine Creatinine Urine Total Protein Phenytoin Coronavirus (PCR) Crossmatch 07/31/20 07/31/20 08/01/20 21:30 22:12 00:25 WBC RBC Hgb Hct MCHC RDW Lymph % (Auto) [place] % (Auto) Eos % (Auto) Lymph # [place] # Lymph # (Auto) [place] # (Auto) Eos # (Auto) Seg Neutrophils % Seg Neuts % (Manual) Lymphocytes % (Manual) Seg Neutrophils # Seg Neutrophils # Man Lymphocytes # (Manual) Monocytes % (Manual) Eosinophils % (Manual) Monocytes # (Manual) Eosinophils # (Manual) D-Dimer Heparin Anti-Xa Level ABG pH POC ABG pCO2 POC ABG pO2 ABG pO2 ABG HCO3 ABG O2 Saturation ABG Base Excess ABG Hemoglobin ABG Oxyhemoglobin VBG pH ABG Sodium ABG Potassium ABG Glucose Oxyhemoglobin Sodium Potassium Chloride Carbon Dioxide BUN Creatinine Glucose POC Glucose 143 H 122 H 134 H Lactic Acid Calcium Ferritin AST Alkaline Phosphatase Magnesium Lactate Dehydrogenase Total Creatine Kinase CK-MB (CK-2) C-Reactive Protein Total Protein Albumin Troponin T HDL Cholesterol Arterial Blood Glucose Urine WBC (Auto) Urine Creatinine Urine Total Protein Phenytoin Coronavirus (PCR) Crossmatch 08/01/20 08/01/20 08/01/20 04:43 05:41 12:23 WBC RBC Hgb Hct MCHC RDW Lymph % (Auto) [place] % (Auto) Eos % (Auto) Lymph # [place] # Lymph # (Auto) [place] # (Auto) Eos # (Auto) Seg Neutrophils % Seg Neuts % (Manual) Lymphocytes % (Manual) Seg Neutrophils # Seg Neutrophils # Man Lymphocytes # (Manual) Monocytes % (Manual) Eosinophils % (Manual) Monocytes # (Manual) Eosinophils # (Manual) D-Dimer Heparin Anti-Xa Level ABG pH POC ABG pCO2 POC ABG pO2 ABG pO2 ABG HCO3 ABG O2 Saturation ABG Base Excess ABG Hemoglobin ABG Oxyhemoglobin VBG pH ABG Sodium ABG Potassium ABG Glucose Oxyhemoglobin Sodium 128 L Potassium 5.8 H Chloride 90.5 L Carbon Dioxide 19 L BUN 122 H Creatinine 3.4 H Glucose 124 H POC Glucose 130 H 128 H Lactic Acid Calcium 8.0 L Ferritin AST Alkaline Phosphatase Magnesium Lactate Dehydrogenase Total Creatine Kinase CK-MB (CK-2) C-Reactive Protein Total Protein Albumin Troponin T HDL Cholesterol Arterial Blood Glucose Urine WBC (Auto) Urine Creatinine Urine Total Protein Phenytoin Coronavirus (PCR) Crossmatch 08/01/20 08/02/20 08/02/20 17:28 00:06 05:32 WBC RBC Hgb Hct MCHC RDW Lymph % (Auto) [place] % (Auto) Eos % (Auto) Lymph # [place] # Lymph # (Auto) [place] # (Auto) Eos # (Auto) Seg Neutrophils % Seg Neuts % (Manual) Lymphocytes % (Manual) Seg Neutrophils # Seg Neutrophils # Man Lymphocytes # (Manual) Monocytes % (Manual) Eosinophils % (Manual) Monocytes # (Manual) Eosinophils # (Manual) D-Dimer Heparin Anti-Xa Level ABG pH POC ABG pCO2 POC ABG pO2 ABG pO2 ABG HCO3 ABG O2 Saturation ABG Base Excess ABG Hemoglobin ABG Oxyhemoglobin VBG pH ABG Sodium ABG Potassium ABG Glucose Oxyhemoglobin Sodium Potassium Chloride Carbon Dioxide BUN Creatinine Glucose POC Glucose 121 H 128 H 177 H Lactic Acid Calcium Ferritin AST Alkaline Phosphatase Magnesium Lactate Dehydrogenase Total Creatine Kinase CK-MB (CK-2) C-Reactive Protein Total Protein Albumin Troponin T HDL Cholesterol Arterial Blood Glucose Urine WBC (Auto) Urine Creatinine Urine Total Protein Phenytoin Coronavirus (PCR) Crossmatch 08/02/20 08/02/20 08/03/20 11:25 12:34 00:08 WBC RBC Hgb Hct MCHC RDW Lymph % (Auto) [place] % (Auto) Eos % (Auto) Lymph # [place] # Lymph # (Auto) [place] # (Auto) Eos # (Auto) Seg Neutrophils % Seg Neuts % (Manual) Lymphocytes % (Manual) Seg Neutrophils # Seg Neutrophils # Man Lymphocytes # (Manual) Monocytes % (Manual) Eosinophils % (Manual) Monocytes # (Manual) Eosinophils # (Manual) D-Dimer Heparin Anti-Xa Level ABG pH 7.344 L POC ABG pCO2 POC ABG pO2 ABG pO2 101.1 H ABG HCO3 ABG O2 Saturation ABG Base Excess -4.5 L ABG Hemoglobin 6.6 L ABG Oxyhemoglobin VBG pH ABG Sodium ABG Potassium ABG Glucose Oxyhemoglobin Sodium Potassium Chloride Carbon Dioxide BUN Creatinine Glucose POC Glucose 196 H 141 H Lactic Acid Calcium Ferritin AST Alkaline Phosphatase Magnesium Lactate Dehydrogenase Total Creatine Kinase CK-MB (CK-2) C-Reactive Protein Total Protein Albumin Troponin T HDL Cholesterol Arterial Blood Glucose Urine WBC (Auto) Urine Creatinine Urine Total Protein Phenytoin Coronavirus (PCR) Crossmatch 08/03/20 08/03/20 08/03/20 04:38 04:38 04:38 WBC 14.3 H RBC 2.42 L Hgb 7.0 L Hct 21.5 L MCHC RDW 18.1 H Lymph % (Auto) [place] % (Auto) Eos % (Auto) Lymph # [place] # Lymph # (Auto) [place] # (Auto) Eos # (Auto) Seg Neutrophils % Seg Neuts % (Manual) Lymphocytes % (Manual) Seg Neutrophils # Seg Neutrophils # Man Lymphocytes # (Manual) Monocytes % (Manual) Eosinophils % (Manual) Monocytes # (Manual) Eosinophils # (Manual) D-Dimer Heparin Anti-Xa Level ABG pH POC ABG pCO2 POC ABG pO2 ABG pO2 ABG HCO3 ABG O2 Saturation ABG Base Excess ABG Hemoglobin ABG Oxyhemoglobin VBG pH ABG Sodium ABG Potassium ABG Glucose Oxyhemoglobin Sodium 130 L Potassium Chloride 90.1 L Carbon Dioxide 20 L BUN 105 H Creatinine 3.1 H Glucose 115 H POC Glucose Lactic Acid 0.40 L Calcium 8.2 L Ferritin AST Alkaline Phosphatase Magnesium Lactate Dehydrogenase Total Creatine Kinase CK-MB (CK-2) C-Reactive Protein Total Protein Albumin Troponin T HDL Cholesterol Arterial Blood Glucose Urine WBC (Auto) Urine Creatinine Urine Total Protein Phenytoin Coronavirus (PCR) Crossmatch 08/03/20 08/03/20 08/03/20 05:33 12:04 17:51 WBC RBC Hgb Hct MCHC RDW Lymph % (Auto) [place] % (Auto) Eos % (Auto) Lymph # [place] # Lymph # (Auto) [place] # (Auto) Eos # (Auto) Seg Neutrophils % Seg Neuts % (Manual) Lymphocytes % (Manual) Seg Neutrophils # Seg Neutrophils # Man Lymphocytes # (Manual) Monocytes % (Manual) Eosinophils % (Manual) Monocytes # (Manual) Eosinophils # (Manual) D-Dimer Heparin Anti-Xa Level ABG pH POC ABG pCO2 POC ABG pO2 ABG pO2 ABG HCO3 ABG O2 Saturation ABG Base Excess ABG Hemoglobin ABG Oxyhemoglobin VBG pH ABG Sodium ABG Potassium ABG Glucose Oxyhemoglobin Sodium Potassium Chloride Carbon Dioxide BUN Creatinine Glucose POC Glucose 117 H 115 H 123 H Lactic Acid Calcium Ferritin AST Alkaline Phosphatase Magnesium Lactate Dehydrogenase Total Creatine Kinase CK-MB (CK-2) C-Reactive Protein Total Protein Albumin Troponin T HDL Cholesterol Arterial Blood Glucose Urine WBC (Auto) Urine Creatinine Urine Total Protein Phenytoin Coronavirus (PCR) Crossmatch 08/03/20 08/04/20 08/04/20 23:25 01:41 05:34 WBC RBC 2.20 L Hgb 6.5 L Hct 19.5 L* MCHC RDW 18.5 H Lymph % (Auto) 9.2 L [place] % (Auto) 9.8 H Eos % (Auto) Lymph # [place] # Lymph # (Auto) 0.8 L [place] # (Auto) Eos # (Auto) Seg Neutrophils % 77.7 H Seg Neuts % (Manual) Lymphocytes % (Manual) Seg Neutrophils # Seg Neutrophils # Man Lymphocytes # (Manual) Monocytes % (Manual) Eosinophils % (Manual) Monocytes # (Manual) Eosinophils # (Manual) D-Dimer Heparin Anti-Xa Level ABG pH POC ABG pCO2 POC ABG pO2 ABG pO2 ABG HCO3 ABG O2 Saturation ABG Base Excess ABG Hemoglobin ABG Oxyhemoglobin VBG pH ABG Sodium ABG Potassium ABG Glucose Oxyhemoglobin Sodium Potassium Chloride Carbon Dioxide BUN Creatinine Glucose POC Glucose 122 H 112 H Lactic Acid Calcium Ferritin AST Alkaline Phosphatase Magnesium Lactate Dehydrogenase Total Creatine Kinase CK-MB (CK-2) C-Reactive Protein Total Protein Albumin Troponin T HDL Cholesterol Arterial Blood Glucose Urine WBC (Auto) Urine Creatinine Urine Total Protein Phenytoin Coronavirus (PCR) Crossmatch 08/04/20 08/04/20 08/05/20 12:19 17:42 00:25 WBC RBC Hgb Hct MCHC RDW Lymph % (Auto) [place] % (Auto) Eos % (Auto) Lymph # [place] # Lymph # (Auto) [place] # (Auto) Eos # (Auto) Seg Neutrophils % Seg Neuts % (Manual) Lymphocytes % (Manual) Seg Neutrophils # Seg Neutrophils # Man Lymphocytes # (Manual) Monocytes % (Manual) Eosinophils % (Manual) Monocytes # (Manual) Eosinophils # (Manual) D-Dimer Heparin Anti-Xa Level ABG pH POC ABG pCO2 POC ABG pO2 ABG pO2 ABG HCO3 ABG O2 Saturation ABG Base Excess ABG Hemoglobin ABG Oxyhemoglobin VBG pH ABG Sodium ABG Potassium ABG Glucose Oxyhemoglobin Sodium Potassium Chloride Carbon Dioxide BUN Creatinine Glucose POC Glucose 108 H 113 H 119 H Lactic Acid Calcium Ferritin AST Alkaline Phosphatase Magnesium Lactate Dehydrogenase Total Creatine Kinase CK-MB (CK-2) C-Reactive Protein Total Protein Albumin Troponin T HDL Cholesterol Arterial Blood Glucose Urine WBC (Auto) Urine Creatinine Urine Total Protein Phenytoin Coronavirus (PCR) Crossmatch 08/05/20 08/05/20 08/05/20 05:24 05:35 05:35 WBC RBC 2.13 L Hgb 6.2 L Hct 18.9 L* MCHC RDW 18.7 H Lymph % (Auto) 10.0 L [place] % (Auto) 8.5 H Eos % (Auto) Lymph # [place] # Lymph # (Auto) 0.8 L [place] # (Auto) Eos # (Auto) Seg Neutrophils % 78.1 H Seg Neuts % (Manual) Lymphocytes % (Manual) Seg Neutrophils # Seg Neutrophils # Man Lymphocytes # (Manual) Monocytes % (Manual) Eosinophils % (Manual) Monocytes # (Manual) Eosinophils # (Manual) D-Dimer Heparin Anti-Xa Level ABG pH POC ABG pCO2 POC ABG pO2 ABG pO2 ABG HCO3 ABG O2 Saturation ABG Base Excess ABG Hemoglobin ABG Oxyhemoglobin VBG pH ABG Sodium ABG Potassium ABG Glucose Oxyhemoglobin Sodium 135 L Potassium Chloride 96.3 L Carbon Dioxide BUN 89 H Creatinine 2.8 H Glucose 116 H POC Glucose 138 H Lactic Acid Calcium 7.5 L Ferritin AST 53 H Alkaline Phosphatase 501 H Magnesium Lactate Dehydrogenase Total Creatine Kinase CK-MB (CK-2) C-Reactive Protein Total Protein 6.1 L Albumin 2.2 L Troponin T HDL Cholesterol Arterial Blood Glucose Urine WBC (Auto) Urine Creatinine Urine Total Protein Phenytoin Coronavirus (PCR) Crossmatch 08/05/20 08/05/20 08/05/20 09:15 12:17 18:00 WBC RBC Hgb Hct MCHC RDW Lymph % (Auto) [place] % (Auto) Eos % (Auto) Lymph # [place] # Lymph # (Auto) [place] # (Auto) Eos # (Auto) Seg Neutrophils % Seg Neuts % (Manual) Lymphocytes % (Manual) Seg Neutrophils # Seg Neutrophils # Man Lymphocytes # (Manual) Monocytes % (Manual) Eosinophils % (Manual) Monocytes # (Manual) Eosinophils # (Manual) D-Dimer Heparin Anti-Xa Level ABG pH POC ABG pCO2 POC ABG pO2 ABG pO2 ABG HCO3 ABG O2 Saturation ABG Base Excess ABG Hemoglobin ABG Oxyhemoglobin VBG pH ABG Sodium ABG Potassium ABG Glucose Oxyhemoglobin Sodium Potassium Chloride Carbon Dioxide BUN Creatinine Glucose POC Glucose 126 H 143 H Lactic Acid Calcium Ferritin AST Alkaline Phosphatase Magnesium Lactate Dehydrogenase Total Creatine Kinase CK-MB (CK-2) C-Reactive Protein Total Protein Albumin Troponin T HDL Cholesterol Arterial Blood Glucose Urine WBC (Auto) Urine Creatinine Urine Total Protein Phenytoin Coronavirus (PCR) Crossmatch See Detail 08/06/20 08/06/20 08/07/20 00:50 04:30 04:40 WBC RBC 2.43 L 2.48 L Hgb 7.2 L 7.4 L Hct 21.7 L 22.1 L MCHC RDW 18.1 H 18.1 H Lymph % (Auto) 9.9 L 11.7 L [place] % (Auto) 10.5 H 8.6 H Eos % (Auto) Lymph # [place] # Lymph # (Auto) 0.7 L 0.9 L [place] # (Auto) Eos # (Auto) Seg Neutrophils % 75.1 H 76.1 H Seg Neuts % (Manual) Lymphocytes % (Manual) Seg Neutrophils # Seg Neutrophils # Man Lymphocytes # (Manual) Monocytes % (Manual) Eosinophils % (Manual) Monocytes # (Manual) Eosinophils # (Manual) D-Dimer Heparin Anti-Xa Level ABG pH POC ABG pCO2 POC ABG pO2 ABG pO2 ABG HCO3 ABG O2 Saturation ABG Base Excess ABG Hemoglobin ABG Oxyhemoglobin VBG pH ABG Sodium ABG Potassium ABG Glucose Oxyhemoglobin Sodium Potassium Chloride Carbon Dioxide BUN Creatinine Glucose POC Glucose 117 H Lactic Acid Calcium Ferritin AST Alkaline Phosphatase Magnesium Lactate Dehydrogenase Total Creatine Kinase CK-MB (CK-2) C-Reactive Protein Total Protein Albumin Troponin T HDL Cholesterol Arterial Blood Glucose Urine WBC (Auto) Urine Creatinine Urine Total Protein Phenytoin Coronavirus (PCR) Crossmatch 08/07/20 08/07/20 08/08/20 05:44 06:00 00:03 WBC RBC Hgb Hct MCHC RDW Lymph % (Auto) [place] % (Auto) Eos % (Auto) Lymph # [place] # Lymph # (Auto) [place] # (Auto) Eos # (Auto) Seg Neutrophils % Seg Neuts % (Manual) Lymphocytes % (Manual) Seg Neutrophils # Seg Neutrophils # Man Lymphocytes # (Manual) Monocytes % (Manual) Eosinophils % (Manual) Monocytes # (Manual) Eosinophils # (Manual) D-Dimer Heparin Anti-Xa Level ABG pH POC ABG pCO2 POC ABG pO2 ABG pO2 ABG HCO3 ABG O2 Saturation ABG Base Excess ABG Hemoglobin ABG Oxyhemoglobin VBG pH ABG Sodium ABG Potassium ABG Glucose Oxyhemoglobin Sodium 132 L Potassium 3.3 L Chloride 92.8 L Carbon Dioxide BUN 64 H Creatinine 2.4 H Glucose POC Glucose 58 L 125 H Lactic Acid Calcium 7.0 L Ferritin AST Alkaline Phosphatase Magnesium Lactate Dehydrogenase Total Creatine Kinase CK-MB (CK-2) C-Reactive Protein Total Protein Albumin Troponin T HDL Cholesterol Arterial Blood Glucose Urine WBC (Auto) Urine Creatinine Urine Total Protein Phenytoin Coronavirus (PCR) Crossmatch 08/08/20 08/08/20 08/08/20 12:58 15:00 15:00 WBC RBC 2.36 L Hgb 7.1 L Hct 21.4 L MCHC RDW 18.3 H Lymph % (Auto) [place] % (Auto) Eos % (Auto) Lymph # [place] # Lymph # (Auto) [place] # (Auto) Eos # (Auto) Seg Neutrophils % Seg Neuts % (Manual) Lymphocytes % (Manual) Seg Neutrophils # Seg Neutrophils # Man Lymphocytes # (Manual) Monocytes % (Manual) Eosinophils % (Manual) Monocytes # (Manual) Eosinophils # (Manual) D-Dimer Heparin Anti-Xa Level ABG pH POC ABG pCO2 POC ABG pO2 ABG pO2 ABG HCO3 ABG O2 Saturation ABG Base Excess ABG Hemoglobin ABG Oxyhemoglobin VBG pH ABG Sodium ABG Potassium ABG Glucose Oxyhemoglobin Sodium Potassium Chloride Carbon Dioxide BUN Creatinine Glucose POC Glucose 134 H Lactic Acid Calcium Ferritin AST Alkaline Phosphatase Magnesium Lactate Dehydrogenase Total Creatine Kinase CK-MB (CK-2) C-Reactive Protein Total Protein Albumin Troponin T HDL Cholesterol Arterial Blood Glucose Urine WBC (Auto) Urine Creatinine Urine Total Protein Phenytoin 4.7 L Coronavirus (PCR) Crossmatch 08/08/20 08/08/20 08/09/20 15:00 17:39 00:00 WBC RBC Hgb Hct MCHC RDW Lymph % (Auto) [place] % (Auto) Eos % (Auto) Lymph # [place] # Lymph # (Auto) [place] # (Auto) Eos # (Auto) Seg Neutrophils % Seg Neuts % (Manual) Lymphocytes % (Manual) Seg Neutrophils # Seg Neutrophils # Man Lymphocytes # (Manual) Monocytes % (Manual) Eosinophils % (Manual) Monocytes # (Manual) Eosinophils # (Manual) D-Dimer Heparin Anti-Xa Level ABG pH POC ABG pCO2 POC ABG pO2 ABG pO2 ABG HCO3 ABG O2 Saturation ABG Base Excess ABG Hemoglobin ABG Oxyhemoglobin VBG pH ABG Sodium ABG Potassium ABG Glucose Oxyhemoglobin Sodium 130 L Potassium 3.1 L Chloride 91.5 L Carbon Dioxide BUN 52 H Creatinine 2.3 H Glucose 135 H POC Glucose 131 H 129 H Lactic Acid Calcium 7.3 L Ferritin AST Alkaline Phosphatase Magnesium Lactate Dehydrogenase Total Creatine Kinase CK-MB (CK-2) C-Reactive Protein Total Protein Albumin Troponin T HDL Cholesterol Arterial Blood Glucose Urine WBC (Auto) Urine Creatinine Urine Total Protein Phenytoin Coronavirus (PCR) Crossmatch 08/09/20 08/09/20 08/11/20 05:05 07:49 03:55 WBC RBC 2.22 L Hgb 6.9 L Hct 20.1 L MCHC RDW 18.3 H Lymph % (Auto) 11.2 L [place] % (Auto) 8.8 H Eos % (Auto) Lymph # [place] # Lymph # (Auto) 0.8 L [place] # (Auto) Eos # (Auto) Seg Neutrophils % 76.3 H Seg Neuts % (Manual) Lymphocytes % (Manual) Seg Neutrophils # Seg Neutrophils # Man Lymphocytes # (Manual) Monocytes % (Manual) Eosinophils % (Manual) Monocytes # (Manual) Eosinophils # (Manual) D-Dimer Heparin Anti-Xa Level ABG pH POC ABG pCO2 POC ABG pO2 ABG pO2 ABG HCO3 ABG O2 Saturation ABG Base Excess ABG Hemoglobin ABG Oxyhemoglobin VBG pH ABG Sodium ABG Potassium ABG Glucose Oxyhemoglobin Sodium 130 L Potassium Chloride 90.1 L Carbon Dioxide BUN 56 H Creatinine 2.4 H Glucose 104 H POC Glucose 111 H Lactic Acid Calcium 7.4 L Ferritin AST Alkaline Phosphatase Magnesium Lactate Dehydrogenase Total Creatine Kinase CK-MB (CK-2) C-Reactive Protein Total Protein Albumin Troponin T HDL Cholesterol Arterial Blood Glucose Urine WBC (Auto) Urine Creatinine Urine Total Protein Phenytoin Coronavirus (PCR) Crossmatch 08/11/20 08/11/20 08/11/20 03:55 05:39 23:46 WBC RBC Hgb Hct MCHC RDW Lymph % (Auto) [place] % (Auto) Eos % (Auto) Lymph # [place] # Lymph # (Auto) [place] # (Auto) Eos # (Auto) Seg Neutrophils % Seg Neuts % (Manual) Lymphocytes % (Manual) Seg Neutrophils # Seg Neutrophils # Man Lymphocytes # (Manual) Monocytes % (Manual) Eosinophils % (Manual) Monocytes # (Manual) Eosinophils # (Manual) D-Dimer Heparin Anti-Xa Level ABG pH POC ABG pCO2 POC ABG pO2 ABG pO2 ABG HCO3 ABG O2 Saturation ABG Base Excess ABG Hemoglobin ABG Oxyhemoglobin VBG pH ABG Sodium ABG Potassium ABG Glucose Oxyhemoglobin Sodium 135 L Potassium Chloride 94.5 L Carbon Dioxide BUN 48 H Creatinine 2.2 H Glucose 53 L POC Glucose < 40 L 131 H Lactic Acid Calcium 7.5 L Ferritin AST Alkaline Phosphatase Magnesium Lactate Dehydrogenase Total Creatine Kinase CK-MB (CK-2) C-Reactive Protein Total Protein Albumin Troponin T HDL Cholesterol Arterial Blood Glucose Urine WBC (Auto) Urine Creatinine Urine Total Protein Phenytoin Coronavirus (PCR) Crossmatch 08/12/20 08/12/20 08/12/20 05:39 12:15 17:21 WBC RBC Hgb Hct MCHC RDW Lymph % (Auto) [place] % (Auto) Eos % (Auto) Lymph # [place] # Lymph # (Auto) [place] # (Auto) Eos # (Auto) Seg Neutrophils % Seg Neuts % (Manual) Lymphocytes % (Manual) Seg Neutrophils # Seg Neutrophils # Man Lymphocytes # (Manual) Monocytes % (Manual) Eosinophils % (Manual) Monocytes # (Manual) Eosinophils # (Manual) D-Dimer Heparin Anti-Xa Level ABG pH POC ABG pCO2 POC ABG pO2 ABG pO2 ABG HCO3 ABG O2 Saturation ABG Base Excess ABG Hemoglobin ABG Oxyhemoglobin VBG pH ABG Sodium ABG Potassium ABG Glucose Oxyhemoglobin Sodium Potassium Chloride Carbon Dioxide BUN Creatinine Glucose POC Glucose 120 H 129 H 106 H Lactic Acid Calcium Ferritin AST Alkaline Phosphatase Magnesium Lactate Dehydrogenase Total Creatine Kinase CK-MB (CK-2) C-Reactive Protein Total Protein Albumin Troponin T HDL Cholesterol Arterial Blood Glucose Urine WBC (Auto) Urine Creatinine Urine Total Protein Phenytoin Coronavirus (PCR) Crossmatch 08/13/20 08/13/20 08/13/20 00:05 06:00 12:01 WBC RBC Hgb Hct MCHC RDW Lymph % (Auto) [place] % (Auto) Eos % (Auto) Lymph # [place] # Lymph # (Auto) [place] # (Auto) Eos # (Auto) Seg Neutrophils % Seg Neuts % (Manual) Lymphocytes % (Manual) Seg Neutrophils # Seg Neutrophils # Man Lymphocytes # (Manual) Monocytes % (Manual) Eosinophils % (Manual) Monocytes # (Manual) Eosinophils # (Manual) D-Dimer Heparin Anti-Xa Level ABG pH POC ABG pCO2 POC ABG pO2 ABG pO2 ABG HCO3 ABG O2 Saturation ABG Base Excess ABG Hemoglobin ABG Oxyhemoglobin VBG pH ABG Sodium ABG Potassium ABG Glucose Oxyhemoglobin Sodium Potassium Chloride Carbon Dioxide BUN Creatinine Glucose POC Glucose 120 H 114 H 112 H Lactic Acid Calcium Ferritin AST Alkaline Phosphatase Magnesium Lactate Dehydrogenase Total Creatine Kinase CK-MB (CK-2) C-Reactive Protein Total Protein Albumin Troponin T HDL Cholesterol Arterial Blood Glucose Urine WBC (Auto) Urine Creatinine Urine Total Protein Phenytoin Coronavirus (PCR) Crossmatch 08/13/20 08/13/20 08/14/20 17:24 23:51 04:50 WBC RBC Hgb Hct MCHC RDW Lymph % (Auto) [place] % (Auto) Eos % (Auto) Lymph # [place] # Lymph # (Auto) [place] # (Auto) Eos # (Auto) Seg Neutrophils % Seg Neuts % (Manual) Lymphocytes % (Manual) Seg Neutrophils # Seg Neutrophils # Man Lymphocytes # (Manual) Monocytes % (Manual) Eosinophils % (Manual) Monocytes # (Manual) Eosinophils # (Manual) D-Dimer Heparin Anti-Xa Level ABG pH POC ABG pCO2 POC ABG pO2 ABG pO2 ABG HCO3 ABG O2 Saturation ABG Base Excess ABG Hemoglobin ABG Oxyhemoglobin VBG pH ABG Sodium ABG Potassium ABG Glucose Oxyhemoglobin Sodium 132 L Potassium Chloride 93.2 L Carbon Dioxide BUN 58 H Creatinine 2.6 H Glucose 106 H POC Glucose 116 H 138 H Lactic Acid Calcium 8.0 L Ferritin AST Alkaline Phosphatase Magnesium Lactate Dehydrogenase Total Creatine Kinase CK-MB (CK-2) C-Reactive Protein Total Protein Albumin Troponin T HDL Cholesterol Arterial Blood Glucose Urine WBC (Auto) Urine Creatinine Urine Total Protein Phenytoin Coronavirus (PCR) Crossmatch 08/14/20 08/14/20 08/14/20 05:52 17:55 23:39 WBC RBC Hgb Hct MCHC RDW Lymph % (Auto) [place] % (Auto) Eos % (Auto) Lymph # [place] # Lymph # (Auto) [place] # (Auto) Eos # (Auto) Seg Neutrophils % Seg Neuts % (Manual) Lymphocytes % (Manual) Seg Neutrophils # Seg Neutrophils # Man Lymphocytes # (Manual) Monocytes % (Manual) Eosinophils % (Manual) Monocytes # (Manual) Eosinophils # (Manual) D-Dimer Heparin Anti-Xa Level ABG pH POC ABG pCO2 POC ABG pO2 ABG pO2 ABG HCO3 ABG O2 Saturation ABG Base Excess ABG Hemoglobin ABG Oxyhemoglobin VBG pH ABG Sodium ABG Potassium ABG Glucose Oxyhemoglobin Sodium Potassium Chloride Carbon Dioxide BUN Creatinine Glucose POC Glucose 108 H 128 H 112 H Lactic Acid Calcium Ferritin AST Alkaline Phosphatase Magnesium Lactate Dehydrogenase Total Creatine Kinase CK-MB (CK-2) C-Reactive Protein Total Protein Albumin Troponin T HDL Cholesterol Arterial Blood Glucose Urine WBC (Auto) Urine Creatinine Urine Total Protein Phenytoin Coronavirus (PCR) Crossmatch 08/15/20 08/15/20 08/15/20 07:02 12:25 18:11 WBC RBC Hgb Hct MCHC RDW Lymph % (Auto) [place] % (Auto) Eos % (Auto) Lymph # [place] # Lymph # (Auto) [place] # (Auto) Eos # (Auto) Seg Neutrophils % Seg Neuts % (Manual) Lymphocytes % (Manual) Seg Neutrophils # Seg Neutrophils # Man Lymphocytes # (Manual) Monocytes % (Manual) Eosinophils % (Manual) Monocytes # (Manual) Eosinophils # (Manual) D-Dimer Heparin Anti-Xa Level ABG pH POC ABG pCO2 POC ABG pO2 ABG pO2 ABG HCO3 ABG O2 Saturation ABG Base Excess ABG Hemoglobin ABG Oxyhemoglobin VBG pH ABG Sodium ABG Potassium ABG Glucose Oxyhemoglobin Sodium Potassium Chloride Carbon Dioxide BUN Creatinine Glucose POC Glucose 118 H 114 H 116 H Lactic Acid Calcium Ferritin AST Alkaline Phosphatase Magnesium Lactate Dehydrogenase Total Creatine Kinase CK-MB (CK-2) C-Reactive Protein Total Protein Albumin Troponin T HDL Cholesterol Arterial Blood Glucose Urine WBC (Auto) Urine Creatinine Urine Total Protein Phenytoin Coronavirus (PCR) Crossmatch 08/16/20 08/16/20 08/16/20 00:52 06:43 12:05 WBC RBC Hgb Hct MCHC RDW Lymph % (Auto) [place] % (Auto) Eos % (Auto) Lymph # [place] # Lymph # (Auto) [place] # (Auto) Eos # (Auto) Seg Neutrophils % Seg Neuts % (Manual) Lymphocytes % (Manual) Seg Neutrophils # Seg Neutrophils # Man Lymphocytes # (Manual) Monocytes % (Manual) Eosinophils % (Manual) Monocytes # (Manual) Eosinophils # (Manual) D-Dimer Heparin Anti-Xa Level ABG pH POC ABG pCO2 POC ABG pO2 ABG pO2 ABG HCO3 ABG O2 Saturation ABG Base Excess ABG Hemoglobin ABG Oxyhemoglobin VBG pH ABG Sodium ABG Potassium ABG Glucose Oxyhemoglobin Sodium Potassium Chloride Carbon Dioxide BUN Creatinine Glucose POC Glucose 115 H 109 H 119 H Lactic Acid Calcium Ferritin AST Alkaline Phosphatase Magnesium Lactate Dehydrogenase Total Creatine Kinase CK-MB (CK-2) C-Reactive Protein Total Protein Albumin Troponin T HDL Cholesterol Arterial Blood Glucose Urine WBC (Auto) Urine Creatinine Urine Total Protein Phenytoin Coronavirus (PCR) Crossmatch 08/16/20 08/17/20 08/17/20 23:58 06:23 12:26 WBC RBC Hgb Hct [facility] RDW Lymph % (Auto) [place] % (Auto) Eos % (Auto) Lymph # [place] # Lymph # (Auto) [place] # (Auto) Eos # (Auto) Seg Neutrophils % Seg Neuts % (Manual) Lymphocytes % (Manual) Seg Neutrophils # Seg Neutrophils # Man Lymphocytes # (Manual) Monocytes % (Manual) Eosinophils % (Manual) Monocytes # (Manual) Eosinophils # (Manual) D-Dimer Heparin Anti-Xa Level ABG pH POC ABG pCO2 POC ABG pO2 ABG pO2 ABG HCO3 ABG O2 Saturation ABG Base Excess ABG Hemoglobin ABG Oxyhemoglobin VBG pH ABG Sodium ABG Potassium ABG Glucose Oxyhemoglobin Sodium Potassium Chloride Carbon Dioxide BUN Creatinine Glucose POC Glucose 130 H 129 H 146 H Lactic Acid Calcium Ferritin AST Alkaline Phosphatase Magnesium Lactate Dehydrogenase Total Creatine Kinase CK-MB (CK-2) C-Reactive Protein Total Protein Albumin Troponin T HDL Cholesterol Arterial Blood Glucose Urine WBC (Auto) Urine Creatinine Urine Total Protein Phenytoin Coronavirus (PCR) Crossmatch Allied health notes reviewed: nursing
[2020-08-17] MEDS: INSULIN GLARGINE 100 UNITS/ML SUB-Q SCH (23:29)
[2020-08-18] MEDS: INSULIN LISPRO 100 UNIT/ML VIAL 3 mL SUB-Q SCH ×2 (00:15→06:45)
[2020-08-18] MEDS: SODIUM CHLORIDE 0.9% IV SCH (06:45)
[2020-08-18] MEDS: PHENYTOIN IV SCH (06:45)
[2020-08-18] MEDS: HEPARIN 5,000 UNIT/1 ML VIAL SUB-Q SCH (06:45)
[2020-08-18] MEDS: TORSEMIDE 100 MG TAB PO SCH (06:45)
[2020-08-18] MEDS: hydrALAZINE 100 MG TAB PO SCH (09:30)
[2020-08-18] MEDS: LANSOPRAZOLE 30 MG SOLUTAB FEEDTUBE SCH (10:34)
[2020-08-18] MEDS: levETIRAcetam 500 MG/5 ML ORAL LIQD PO SCH (10:34)
[2020-08-18] MEDS: GLYCOPYRROLATE 2 MG TAB PO SCH ×2 (10:34→14:24)
[2020-08-18] MEDS: amLODIPine 10 MG TAB PO SCH (10:35)
[2020-08-18] MEDS: MINOXIDIL 2.5 MG TAB PO SCH (10:36)
[2020-08-18] MEDS: SENNOSIDES ORAL LIQD 8.8 MG/5 ML ORAL LIQD FEEDTUBE SCH (10:37)
--- NOTE | 2020-08-18 12:46 | Discharge Summary ---
Providers - Providers Date of Admission: 05/28/20 19:08 Date of discharge: 08/18/20 Attending physician: TENZIN FOSTER 05/28/20 13:49 Consult to Dietitian/Nutrition [CONS] Routine Physician Instructions: Reason For Exam: Reason for Consult: Evaluate nutritional intake 05/28/20 19:08 Consult to Physician [CONS] Routine Comment: Consulting Provider: LISA FERNANDEZ Physician Instructions: Reason For Exam: cardiac arrest/respiratory failure on vent 05/29/20 13:16 Consult to Dietitian/Nutrition [CONS] Stat Physician Instructions: Reason For Exam: Reason for Consult: Write/Manage Tube Feeding 05/29/20 14:21 Consult to Physician [CONS] Routine Comment: Consulting Provider: TING THOMAS Physician Instructions: Reason For Exam: COVID 19; Pneumonia 06/05/20 11:12 Consult to Physician [CONS] Routine Comment: Consulting Provider: TANNER HERNANDEZ Physician Instructions: Reason For Exam: Acute kidney injury 06/12/20 12:56 Occupational Therapy Evaluate and Treat [CONS] Routine Comment: Reason For Exam: ADLS Physical Therapy Evaluation and Treat [CONS] Routine Comment: Reason For Exam: post extubation, critical illness myopathy 06/13/20 11:00 Speech Therapy Evaluation and Treat [CONS] Routine Reason For Exam: dysphagia eval, post extubation 06/14/20 11:50 Consult to Dietitian/Nutrition [CONS] Routine Physician Instructions: Assess nutrtn needs, initiate, modify, manage TF Reason For Exam: Reason for Consult: Write/Manage Tube Feeding Reason for Consult: Write/Manage Tube Feeding 06/23/20 17:14 Speech Therapy Evaluation and Treat [CONS] Routine Reason For Exam: aspiration 06/28/20 09:58 Consult to Physician [CONS] Routine Comment: Consulting Provider: LUPE ROBERT Physician Instructions: Reason For Exam: GI bleed 06/30/20 15:14 Midline [Consult to PICC Line RN] [CONS] Urgent Reason For Exam: pt needs Midline Type Line:: Midline 07/03/20 17:34 Consult to Physician [CONS] Routine Comment: dr. roblero o/shandra fuentes Consulting Provider: ASHISH LINDSAY Physician Instructions: Reason For Exam: Bright red stool 07/07/20 17:47 Consult to Physician [CONS] Routine Comment: called office Consulting Provider: TANNER HERNANDEZ Physician Instructions: Reconsult Reason For Exam: Worsening renal function 07/11/20 16:32 Consult to Physician [CONS] Routine Comment: Consulting Provider: BHASKAR VERNON Physician Instructions: Reason For Exam: Tracheostomy placement 07/13/20 10:13 Consult to Physician [CONS] Routine Comment: Consulting Provider: TANNER HERNANDEZ Physician Instructions: Reason For Exam: recall consult 07/15/20 11:26 Consult to Physician [CONS] Routine Comment: Consulting Provider: ALIREZA FONTANA Physician Instructions: Reason For Exam: encephalopathy, prognosis 07/24/20 08:17 Consult to Physician [CONS] Routine Comment: dr. huang spoke with dr. anglin/alfredo Consulting Provider: GERARDO HUANG Physician Instructions: Reason For Exam: Reconsult- AVANI 07/24/20 08:20 Consult to PICC Line RN [CONS] Urgent Reason For Exam: CRITICALLY ILL PATIENT Type Line:: PICC 07/29/20 11:28 Consult to Physician [CONS] Routine Comment: Consulting Provider: LUPE SURESH Physician Instructions: Reason For Exam: AVANI needs Vas cath 08/01/20 12:48 Consult to Physician [CONS] Urgent Comment: Consulting Provider: AMELIA GOLDEN Physician Instructions: Reason For Exam: dialysis 08/02/20 10:33 Consult to Interventional Radiology [CONS] Urgent Consulting Provider: LA RIVERA Reason For Exam: hemodialysis catheter Notified:: answering service 08/03/20 12:30 Consult to Physician [CONS] Routine Comment: called office/ alfredo Consulting Provider: ASHISH LINDSAY Physician Instructions: Reason For Exam: Fecal matter in NGT Primary care physician: [employer]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
--- NOTE | 2020-08-18 13:04 | Progress Note ---
Assessment and Plan Acute hypoxemic respiratory failure on MVS Coronavirus-19 infection. Bilateral pulmonary infiltrates, bilateral pneumonia plus likely element of Pulmonary edema. Bilateral pulmonary edema. Bilateral pleural effusions. History of congestive heart failure. Morbid obesity. History of pulmonary hypertension. History of hypertension. Diabetes. Obesity hypoventilation syndrome. Elevated serum inflammatory markers to include D-dimers and LDH levels. Hyperkalemia at presentation. Metabolic acidosis. Oropharyngeal dysphagia. (AMS remains rate limiting factor to safe extubation; she will need a tracheo stomy if continued care desired) - continue daily SBT's and attempts to wean - discharge planning ongoing concurrently - continue to rest on AC qhs - continue care as below otherwise; - prn CXR's and ABG's - no clinical seizures - await families next steps - not a candidate for safe extubation now; - prn vasopressors for target MAP > 65 mmHg - prn CXR's and ABG's at this point - repeat EEG next per neurology rec's (repeat CT brain negative) - AED's per neurology ([facility] [employer] [facility]) - surgery evaluation ongoing for trach +/- PEG (await negative COVID PCR result) - continue Modafinil re: lethargy / somnolence - continue daytime PSV trials as tolerated - Daily SAT and SBT assessment as tolerated - continue to wean supplemental oxygen for target O2 sat's > 92% acutely - VAP bundle addressed - continue lung protective strategies - continue bronchodilators with pulmonary hygiene per RT - wean per pulmonary driven protocols otherwise - continue accuchecks resumed with glycemic control per SSI (While critically ill target blood glucose of 140-180 mg/dL; avoid hypoglycemia) - sedation prn for target RASS 0 to -1 - continue to avoid benzodiazepine's, reduce the possibility of delirium - AB's per ID rec's (following clinically of AB's at this time) - continue enteral nutrition at goal rate as tolerated - AED's per neurology - prn analgesia per CPOT score - Maintenance of sleep-wake cycle, avoid delirium - continue enteral nutritional support at goal rate as tolerated - G.I. & VTE prophylaxis with heparin & famotidine - PT/OT/ROM exercises - continue mobility protocols for pressure ulcer prophylaxis - Monitor hemodynamics closely - continue other care per attending / other consultants - discharge planning ongoing concurrently (LTAC evaluation is appropriate) .... Re-evaluate in am & prn; will continue aggressive care until clear family wants to decelerate CONDITION: CRITICAL PROGNOSIS: GUARDED CODE STATUS: FULL CODE The high probability of a clinically significant, sudden or life-threatening deterioration of the [respiratory, cardiovascular, GI & neurologic] system(s) re quired my full and direct attention, intervention and personal management. The aggregate critical care time was [32] minutes without overlap. Time includes spent on; [x] Data Review and interpretation [x] Patient assessment and monitoring of vital signs [x] Documentation [x] Medication orders and management Subjective Date of service: 08/18/20 Principal diagnosis: Ac hypoxemic resp failure; COVID-19; pneumonia; CHF; Pulm HTN; OHS; DM II Interval history: Patient is seen today for: Ac hypoxemic resp failure; Coronavirus-19 infection; pneumonia; Pulmonary edema; Bilateral pleural effusions; CHF; Morbid obesity; pulmonary hypertension; OHS; DM II Seen and examined at bedside; 24hour events reviewed; nursing and respiratory care staff consulted; no adverse overnight events reported to me; resting peacefully in bed; remains on MVS, on full AC support; again tentatively for transfer to home hospice today; No emesis or overt aspiration Objective Vital Signs - 12hr 08/18/20 08/18/20 08/18/20 02:00 03:01 04:00 Temperature Pulse Rate 77 78 81 Respiratory 19 9 L 25 H Rate Blood Pressure 141/49 133/52 133/52 O2 Sat by Pulse 97 96 95 Oximetry 08/18/20 08/18/20 08/18/20 05:00 05:01 05:19 Temperature 98.9 F Pulse Rate 81 80 81 Respiratory 14 Rate Blood Pressure 147/42 141/42 O2 Sat by Pulse 97 99 Oximetry 08/18/20 08/18/20 08/18/20 06:00 07:01 08:00 Temperature 99.7 F H Pulse Rate 79 74 76 Respiratory 20 17 11 L Rate Blood Pressure 138/45 130/38 138/43 O2 Sat by Pulse 97 98 97 Oximetry 08/18/20 08/18/20 08/18/20 09:00 10:00 10:35 Temperature Pulse Rate 78 78 79 Respiratory 7 L 19 Rate Blood Pressure 139/42 145/46 145/46 O2 Sat by Pulse 97 98 Oximetry 08/18/20 08/18/20 08/18/20 11:01 11:10 12:00 Temperature 99.0 F Pulse Rate 80 80 77 Respiratory 17 Rate Blood Pressure 132/34 132/34 O2 Sat by Pulse 99 98 Oximetry 08/18/20 12:01 Temperature Pulse Rate 77 Respiratory 16 Rate Blood Pressure 131/38 O2 Sat by Pulse 99 Oximetry Constitutional: appears uncomfortable, other (elderly looking female with mildly increased resp effort at rest) Eyes: non-icteric ENT: oropharynx moist, oropharyngeal exudate pre (mild to moderate), other (ETT 23-24 cm AYAN) Neck: supple, no lymphadenopathy, no JVD Effort: mildly labored Ascultation: Bilateral: diminished breath sounds, rhonchi Percussion: Bilateral: not dull Cardiovascular: regular rate and rhythm, other (S1,S2) Gastrointestinal: normoactive bowel sounds, soft, non-tender, non-distended Integumentary: rash, other (anasarca) Extremities: no cyanosis, pink and warm, pulses normal, no ischemia or petechiae, edema (+ anasarca) Neurologic: unable to assess, other (lethargic to obtunded) Psychiatric: other (unable to assess re: AMS) CBC and BMP: 08/11/20 03:55 08/14/20 04:50 ABG, PT/INR, D-dimer: ABG ABG pH 7.344 pH Units (7.350-7.450) L 08/02/20 11:25 POC ABG pCO2 44.1 mmHg (32.0-48.0) 07/18/20 04:24 ABG pCO2 39.0 mm Hg 08/02/20 11:25 POC ABG pO2 86.8 mmHg (83-108) 07/18/20 04:24 ABG pO2 101.1 mm Hg (80.0-90.0) H 08/02/20 11:25 POC ABG HCO3 25.6 07/18/20 04:24 ABG O2 Saturation 97.5 % (95.0-99.0) 08/02/20 11:25 PT/INR, D-dimer PT 14.2 Sec. (12.2-14.9) 05/29/20 15:10 INR 1.08 (0.87-1.13) 05/29/20 15:10 D-Dimer 2310.15 ng/mlDDU (0-234) H 06/29/20 14:45 Abnormal lab findings: Abnormal Labs 05/28/20 05/28/20 05/28/20 13:29 13:47 13:47 WBC RBC Hgb Hct MCHC RDW 15.3 H Lymph % (Auto) [place] % (Auto) Eos % (Auto) Lymph # [place] # Lymph # (Auto) [place] # (Auto) Eos # (Auto) Seg Neutrophils % Seg Neuts % (Manual) Lymphocytes % (Manual) Seg Neutrophils # Seg Neutrophils # Man Lymphocytes # (Manual) Monocytes % (Manual) Eosinophils % (Manual) Monocytes # (Manual) Eosinophils # (Manual) D-Dimer Heparin Anti-Xa Level ABG pH POC ABG pCO2 POC ABG pO2 ABG pO2 ABG HCO3 ABG O2 Saturation ABG Base Excess ABG Hemoglobin ABG Oxyhemoglobin VBG pH ABG Sodium ABG Potassium ABG Glucose Oxyhemoglobin Sodium Potassium 6.6 H* Chloride 109.2 H Carbon Dioxide 17 L BUN 29 H Creatinine 1.3 H Glucose 265 H POC Glucose 248 H Lactic Acid Calcium 8.1 L Ferritin AST 63 H Alkaline Phosphatase Magnesium Lactate Dehydrogenase Total Creatine Kinase 301 H CK-MB (CK-2) 4.3 H C-Reactive Protein Total Protein 5.4 L Albumin 2.6 L Troponin T HDL Cholesterol Arterial Blood Glucose Urine WBC (Auto) Urine Creatinine Urine Total Protein Phenytoin Coronavirus (PCR) Crossmatch 05/28/20 05/28/20 05/28/20 13:47 13:47 14:46 WBC RBC Hgb Hct MCHC RDW Lymph % (Auto) [place] % (Auto) Eos % (Auto) Lymph # [place] # Lymph # (Auto) [place] # (Auto) Eos # (Auto) Seg Neutrophils % Seg Neuts % (Manual) Lymphocytes % (Manual) Seg Neutrophils # Seg Neutrophils # Man Lymphocytes # (Manual) Monocytes % (Manual) Eosinophils % (Manual) Monocytes # (Manual) Eosinophils # (Manual) D-Dimer Heparin Anti-Xa Level ABG pH POC ABG pCO2 POC ABG pO2 ABG pO2 ABG HCO3 ABG O2 Saturation ABG Base Excess ABG Hemoglobin ABG Oxyhemoglobin VBG pH 7.152 L* ABG Sodium ABG Potassium ABG Glucose Oxyhemoglobin Sodium Potassium 7.2 H* Chloride Carbon Dioxide BUN Creatinine Glucose POC Glucose Lactic Acid 3.40 H* Calcium Ferritin AST Alkaline Phosphatase Magnesium Lactate Dehydrogenase Total Creatine Kinase CK-MB (CK-2) C-Reactive Protein Total Protein Albumin Troponin T HDL Cholesterol Arterial Blood Glucose Urine WBC (Auto) Urine Creatinine Urine Total Protein Phenytoin Coronavirus (PCR) Crossmatch 05/28/20 05/28/20 05/28/20 15:33 15:33 15:51 WBC RBC Hgb Hct MCHC RDW Lymph % (Auto) [place] % (Auto) Eos % (Auto) Lymph # [place] # Lymph # (Auto) [place] # (Auto) Eos # (Auto) Seg Neutrophils % Seg Neuts % (Manual) Lymphocytes % (Manual) Seg Neutrophils # Seg Neutrophils # Man Lymphocytes # (Manual) Monocytes % (Manual) Eosinophils % (Manual) Monocytes # (Manual) Eosinophils # (Manual) D-Dimer 8780.43 H Heparin Anti-Xa Level ABG pH 7.284 L POC ABG pCO2 POC ABG pO2 ABG pO2 273.0 H ABG HCO3 ABG O2 Saturation 99.4 H ABG Base Excess -6.1 L ABG Hemoglobin 17.2 H ABG Oxyhemoglobin VBG pH ABG Sodium ABG Potassium ABG Glucose Oxyhemoglobin Sodium Potassium Chloride Carbon Dioxide BUN Creatinine Glucose 152 H POC Glucose Lactic Acid Calcium Ferritin AST Alkaline Phosphatase Magnesium Lactate Dehydrogenase 365 H Total Creatine Kinase CK-MB (CK-2) C-Reactive Protein Total Protein Albumin Troponin T HDL Cholesterol Arterial Blood Glucose Urine WBC (Auto) Urine Creatinine Urine Total Protein Phenytoin Coronavirus (PCR) Crossmatch 05/28/20 05/28/20 05/28/20 16:30 20:41 23:20 WBC RBC Hgb Hct MCHC RDW Lymph % (Auto) [place] % (Auto) Eos % (Auto) Lymph # [place] # Lymph # (Auto) [place] # (Auto) Eos # (Auto) Seg Neutrophils % Seg Neuts % (Manual) Lymphocytes % (Manual) Seg Neutrophils # Seg Neutrophils # Man Lymphocytes # (Manual) Monocytes % (Manual) Eosinophils % (Manual) Monocytes # (Manual) Eosinophils # (Manual) D-Dimer Heparin Anti-Xa Level ABG pH POC ABG pCO2 POC ABG pO2 ABG pO2 ABG HCO3 ABG O2 Saturation ABG Base Excess ABG Hemoglobin ABG Oxyhemoglobin VBG pH ABG Sodium ABG Potassium ABG Glucose Oxyhemoglobin Sodium Potassium Chloride Carbon Dioxide BUN Creatinine Glucose POC Glucose 225 H 224 H Lactic Acid Calcium Ferritin AST Alkaline Phosphatase Magnesium Lactate Dehydrogenase Total Creatine Kinase CK-MB (CK-2) C-Reactive Protein Total Protein Albumin Troponin T HDL Cholesterol Arterial Blood Glucose Urine WBC (Auto) 17.0 H Urine Creatinine Urine Total Protein Phenytoin Coronavirus (PCR) Crossmatch 05/28/20 05/29/20 05/29/20 Unknown 04:35 04:43 WBC RBC 3.48 L Hgb 9.8 L Hct 29.4 L MCHC RDW 16.0 H Lymph % (Auto) 7.4 L [place] % (Auto) Eos % (Auto) Lymph # 0.7 L [place] # Lymph # (Auto) [place] # (Auto) Eos # (Auto) Seg Neutrophils % 89.1 H Seg Neuts % (Manual) Lymphocytes % (Manual) Seg Neutrophils # 8.1 H Seg Neutrophils # Man Lymphocytes # (Manual) Monocytes % (Manual) Eosinophils % (Manual) Monocytes # (Manual) Eosinophils # (Manual) D-Dimer Heparin Anti-Xa Level ABG pH POC ABG pCO2 POC ABG pO2 ABG pO2 ABG HCO3 19.3 L ABG O2 Saturation ABG Base Excess -4.5 L ABG Hemoglobin 9.7 L ABG Oxyhemoglobin VBG pH ABG Sodium ABG Potassium ABG Glucose Oxyhemoglobin Sodium Potassium Chloride Carbon Dioxide BUN Creatinine Glucose POC Glucose Lactic Acid Calcium Ferritin AST Alkaline Phosphatase Magnesium Lactate Dehydrogenase Total Creatine Kinase CK-MB (CK-2) C-Reactive Protein Total Protein Albumin Troponin T HDL Cholesterol Arterial Blood Glucose Urine WBC (Auto) Urine Creatinine Urine Total Protein Phenytoin Coronavirus (PCR) Positive A Crossmatch 05/29/20 05/29/20 05/29/20 04:43 15:10 17:17 WBC RBC Hgb 9.3 L Hct 28.7 L MCHC RDW Lymph % (Auto) [place] % (Auto) Eos % (Auto) Lymph # [place] # Lymph # (Auto) [place] # (Auto) Eos # (Auto) Seg Neutrophils % Seg Neuts % (Manual) Lymphocytes % (Manual) Seg Neutrophils # Seg Neutrophils # Man Lymphocytes # (Manual) Monocytes % (Manual) Eosinophils % (Manual) Monocytes # (Manual) Eosinophils # (Manual) D-Dimer Heparin Anti-Xa Level ABG pH POC ABG pCO2 POC ABG pO2 ABG pO2 ABG HCO3 ABG O2 Saturation ABG Base Excess ABG Hemoglobin ABG Oxyhemoglobin VBG pH ABG Sodium ABG Potassium ABG Glucose Oxyhemoglobin Sodium Potassium Chloride 110.2 H Carbon Dioxide 18 L BUN 32 H Creatinine 1.4 H Glucose 180 H POC Glucose 147 H Lactic Acid Calcium Ferritin AST Alkaline Phosphatase Magnesium Lactate Dehydrogenase Total Creatine Kinase CK-MB (CK-2) C-Reactive Protein Total Protein Albumin Troponin T HDL Cholesterol Arterial Blood Glucose Urine WBC (Auto) Urine Creatinine Urine Total Protein Phenytoin Coronavirus (PCR) Crossmatch 05/30/20 05/30/20 05/30/20 00:08 00:12 04:15 WBC RBC Hgb Hct MCHC RDW Lymph % (Auto) [place] % (Auto) Eos % (Auto) Lymph # [place] # Lymph # (Auto) [place] # (Auto) Eos # (Auto) Seg Neutrophils % Seg Neuts % (Manual) Lymphocytes % (Manual) Seg Neutrophils # Seg Neutrophils # Man Lymphocytes # (Manual) Monocytes % (Manual) Eosinophils % (Manual) Monocytes # (Manual) Eosinophils # (Manual) D-Dimer Heparin Anti-Xa Level 0.71 H ABG pH 7.460 H POC ABG pCO2 POC ABG pO2 ABG pO2 106.0 H ABG HCO3 18.9 L ABG O2 Saturation ABG Base Excess -4.4 L ABG Hemoglobin 6.8 L ABG Oxyhemoglobin VBG pH ABG Sodium ABG Potassium ABG Glucose Oxyhemoglobin Sodium Potassium Chloride Carbon Dioxide BUN Creatinine Glucose POC Glucose 195 H Lactic Acid Calcium Ferritin AST Alkaline Phosphatase Magnesium Lactate Dehydrogenase Total Creatine Kinase CK-MB (CK-2) C-Reactive Protein Total Protein Albumin Troponin T HDL Cholesterol Arterial Blood Glucose Urine WBC (Auto) Urine Creatinine Urine Total Protein Phenytoin Coronavirus (PCR) Crossmatch 05/30/20 05/30/20 05/30/20 06:07 08:37 12:33 WBC RBC Hgb Hct MCHC RDW Lymph % (Auto) [place] % (Auto) Eos % (Auto) Lymph # [place] # Lymph # (Auto) [place] # (Auto) Eos # (Auto) Seg Neutrophils % Seg Neuts % (Manual) Lymphocytes % (Manual) Seg Neutrophils # Seg Neutrophils # Man Lymphocytes # (Manual) Monocytes % (Manual) Eosinophils % (Manual) Monocytes # (Manual) Eosinophils # (Manual) D-Dimer Heparin Anti-Xa Level 0.85 H ABG pH POC ABG pCO2 POC ABG pO2 ABG pO2 ABG HCO3 ABG O2 Saturation ABG Base Excess ABG Hemoglobin ABG Oxyhemoglobin VBG pH ABG Sodium ABG Potassium ABG Glucose Oxyhemoglobin Sodium Potassium Chloride Carbon Dioxide BUN Creatinine Glucose POC Glucose 182 H 187 H Lactic Acid Calcium Ferritin AST Alkaline Phosphatase Magnesium Lactate Dehydrogenase Total Creatine Kinase CK-MB (CK-2) C-Reactive Protein Total Protein Albumin Troponin T HDL Cholesterol Arterial Blood Glucose Urine WBC (Auto) Urine Creatinine Urine Total Protein Phenytoin Coronavirus (PCR) Crossmatch 05/30/20 05/30/20 05/30/20 15:58 17:57 23:36 WBC RBC Hgb Hct MCHC RDW Lymph % (Auto) [place] % (Auto) Eos % (Auto) Lymph # [place] # Lymph # (Auto) [place] # (Auto) Eos # (Auto) Seg Neutrophils % Seg Neuts % (Manual) Lymphocytes % (Manual) Seg Neutrophils # Seg Neutrophils # Man Lymphocytes # (Manual) Monocytes % (Manual) Eosinophils % (Manual) Monocytes # (Manual) Eosinophils # (Manual) D-Dimer Heparin Anti-Xa Level 1.03 H ABG pH POC ABG pCO2 POC ABG pO2 ABG pO2 ABG HCO3 ABG O2 Saturation ABG Base Excess ABG Hemoglobin ABG Oxyhemoglobin VBG pH ABG Sodium ABG Potassium ABG Glucose Oxyhemoglobin Sodium Potassium Chloride Carbon Dioxide BUN Creatinine Glucose POC Glucose 208 H 185 H Lactic Acid Calcium Ferritin AST Alkaline Phosphatase Magnesium Lactate Dehydrogenase Total Creatine Kinase CK-MB (CK-2) C-Reactive Protein Total Protein Albumin Troponin T HDL Cholesterol Arterial Blood Glucose Urine WBC (Auto) Urine Creatinine Urine Total Protein Phenytoin Coronavirus (PCR) Crossmatch 05/31/20 05/31/20 05/31/20 02:16 03:55 06:16 WBC RBC Hgb 9.2 L Hct 27.5 L MCHC RDW Lymph % (Auto) [place] % (Auto) Eos % (Auto) Lymph # [place] # Lymph # (Auto) [place] # (Auto) Eos # (Auto) Seg Neutrophils % Seg Neuts % (Manual) Lymphocytes % (Manual) Seg Neutrophils # Seg Neutrophils # Man Lymphocytes # (Manual) Monocytes % (Manual) Eosinophils % (Manual) Monocytes # (Manual) Eosinophils # (Manual) D-Dimer Heparin Anti-Xa Level ABG pH POC ABG pCO2 POC ABG pO2 ABG pO2 94.7 H ABG HCO3 18.6 L ABG O2 Saturation ABG Base Excess -5.5 L ABG Hemoglobin 7.9 L ABG Oxyhemoglobin VBG pH ABG Sodium ABG Potassium ABG Glucose Oxyhemoglobin Sodium Potassium Chloride Carbon Dioxide BUN Creatinine Glucose POC Glucose 160 H Lactic Acid Calcium Ferritin AST Alkaline Phosphatase Magnesium Lactate Dehydrogenase Total Creatine Kinase CK-MB (CK-2) C-Reactive Protein Total Protein Albumin Troponin T HDL Cholesterol Arterial Blood Glucose Urine WBC (Auto) Urine Creatinine Urine Total Protein Phenytoin Coronavirus (PCR) Crossmatch 05/31/20 05/31/20 05/31/20 12:20 13:03 18:13 WBC RBC Hgb Hct MCHC RDW Lymph % (Auto) [place] % (Auto) Eos % (Auto) Lymph # [place] # Lymph # (Auto) [place] # (Auto) Eos # (Auto) Seg Neutrophils % Seg Neuts % (Manual) Lymphocytes % (Manual) Seg Neutrophils # Seg Neutrophils # Man Lymphocytes # (Manual) Monocytes % (Manual) Eosinophils % (Manual) Monocytes # (Manual) Eosinophils # (Manual) D-Dimer Heparin Anti-Xa Level ABG pH POC ABG pCO2 POC ABG pO2 ABG pO2 ABG HCO3 ABG O2 Saturation ABG Base Excess ABG Hemoglobin ABG Oxyhemoglobin VBG pH ABG Sodium ABG Potassium ABG Glucose Oxyhemoglobin Sodium Potassium Chloride Carbon Dioxide 18 L BUN 48 H Creatinine 1.6 H Glucose 115 H POC Glucose 128 H 159 H Lactic Acid Calcium 8.3 L Ferritin AST Alkaline Phosphatase Magnesium Lactate Dehydrogenase Total Creatine Kinase CK-MB (CK-2) C-Reactive Protein Total Protein 5.4 L Albumin 2.4 L Troponin T HDL Cholesterol Arterial Blood Glucose Urine WBC (Auto) Urine Creatinine Urine Total Protein Phenytoin Coronavirus (PCR) Crossmatch 05/31/20 06/01/20 06/01/20 23:51 04:00 05:48 WBC RBC Hgb Hct MCHC RDW Lymph % (Auto) [place] % (Auto) Eos % (Auto) Lymph # [place] # Lymph # (Auto) [place] # (Auto) Eos # (Auto) Seg Neutrophils % Seg Neuts % (Manual) Lymphocytes % (Manual) Seg Neutrophils # Seg Neutrophils # Man Lymphocytes # (Manual) Monocytes % (Manual) Eosinophils % (Manual) Monocytes # (Manual) Eosinophils # (Manual) D-Dimer Heparin Anti-Xa Level ABG pH POC ABG pCO2 POC ABG pO2 ABG pO2 109.8 H ABG HCO3 18.8 L ABG O2 Saturation ABG Base Excess -5.9 L ABG Hemoglobin 7.8 L ABG Oxyhemoglobin VBG pH ABG Sodium ABG Potassium ABG Glucose Oxyhemoglobin Sodium Potassium Chloride Carbon Dioxide BUN Creatinine Glucose POC Glucose 171 H 133 H Lactic Acid Calcium Ferritin AST Alkaline Phosphatase Magnesium Lactate Dehydrogenase Total Creatine Kinase CK-MB (CK-2) C-Reactive Protein Total Protein Albumin Troponin T HDL Cholesterol Arterial Blood Glucose Urine WBC (Auto) Urine Creatinine Urine Total Protein Phenytoin Coronavirus (PCR) Crossmatch 06/01/20 06/01/20 06/02/20 12:28 17:29 00:08 WBC RBC Hgb Hct MCHC RDW Lymph % (Auto) [place] % (Auto) Eos % (Auto) Lymph # [place] # Lymph # (Auto) [place] # (Auto) Eos # (Auto) Seg Neutrophils % Seg Neuts % (Manual) Lymphocytes % (Manual) Seg Neutrophils # Seg Neutrophils # Man Lymphocytes # (Manual) Monocytes % (Manual) Eosinophils % (Manual) Monocytes # (Manual) Eosinophils # (Manual) D-Dimer Heparin Anti-Xa Level ABG pH POC ABG pCO2 POC ABG pO2 ABG pO2 ABG HCO3 ABG O2 Saturation ABG Base Excess ABG Hemoglobin ABG Oxyhemoglobin VBG pH ABG Sodium ABG Potassium ABG Glucose Oxyhemoglobin Sodium Potassium Chloride Carbon Dioxide BUN Creatinine Glucose POC Glucose 199 H 209 H 162 H Lactic Acid Calcium Ferritin AST Alkaline Phosphatase Magnesium Lactate Dehydrogenase Total Creatine Kinase CK-MB (CK-2) C-Reactive Protein Total Protein Albumin Troponin T HDL Cholesterol Arterial Blood Glucose Urine WBC (Auto) Urine Creatinine Urine Total Protein Phenytoin Coronavirus (PCR) Crossmatch 06/02/20 06/02/20 06/02/20 04:20 04:20 04:44 WBC RBC Hgb 10.0 L Hct MCHC RDW Lymph % (Auto) [place] % (Auto) Eos % (Auto) Lymph # [place] # Lymph # (Auto) [place] # (Auto) Eos # (Auto) Seg Neutrophils % Seg Neuts % (Manual) Lymphocytes % (Manual) Seg Neutrophils # Seg Neutrophils # Man Lymphocytes # (Manual) Monocytes % (Manual) Eosinophils % (Manual) Monocytes # (Manual) Eosinophils # (Manual) D-Dimer Heparin Anti-Xa Level 0.10 L ABG pH POC ABG pCO2 POC ABG pO2 ABG pO2 150.6 H ABG HCO3 ABG O2 Saturation ABG Base Excess -4.1 L ABG Hemoglobin 11.8 L ABG Oxyhemoglobin VBG pH ABG Sodium ABG Potassium ABG Glucose Oxyhemoglobin Sodium Potassium Chloride Carbon Dioxide BUN Creatinine Glucose POC Glucose Lactic Acid Calcium Ferritin AST Alkaline Phosphatase Magnesium Lactate Dehydrogenase Total Creatine Kinase CK-MB (CK-2) C-Reactive Protein Total Protein Albumin Troponin T HDL Cholesterol Arterial Blood Glucose Urine WBC (Auto) Urine Creatinine Urine Total Protein Phenytoin Coronavirus (PCR) Crossmatch 06/02/20 06/02/20 06/02/20 05:53 12:04 13:49 WBC RBC Hgb Hct MCHC RDW Lymph % (Auto) [place] % (Auto) Eos % (Auto) Lymph # [place] # Lymph # (Auto) [place] # (Auto) Eos # (Auto) Seg Neutrophils % Seg Neuts % (Manual) Lymphocytes % (Manual) Seg Neutrophils # Seg Neutrophils # Man Lymphocytes # (Manual) Monocytes % (Manual) Eosinophils % (Manual) Monocytes # (Manual) Eosinophils # (Manual) D-Dimer Heparin Anti-Xa Level 0.28 L ABG pH POC ABG pCO2 POC ABG pO2 ABG pO2 ABG HCO3 ABG O2 Saturation ABG Base Excess ABG Hemoglobin ABG Oxyhemoglobin VBG pH ABG Sodium ABG Potassium ABG Glucose Oxyhemoglobin Sodium Potassium Chloride Carbon Dioxide BUN Creatinine Glucose POC Glucose 149 H 220 H Lactic Acid Calcium Ferritin AST Alkaline Phosphatase Magnesium Lactate Dehydrogenase Total Creatine Kinase CK-MB (CK-2) C-Reactive Protein Total Protein Albumin Troponin T HDL Cholesterol Arterial Blood Glucose Urine WBC (Auto) Urine Creatinine Urine Total Protein Phenytoin Coronavirus (PCR) Crossmatch 06/02/20 06/02/20 06/03/20 13:49 18:31 00:42 WBC RBC Hgb Hct MCHC RDW Lymph % (Auto) [place] % (Auto) Eos % (Auto) Lymph # [place] # Lymph # (Auto) [place] # (Auto) Eos # (Auto) Seg Neutrophils % Seg Neuts % (Manual) Lymphocytes % (Manual) Seg Neutrophils # Seg Neutrophils # Man Lymphocytes # (Manual) Monocytes % (Manual) Eosinophils % (Manual) Monocytes # (Manual) Eosinophils # (Manual) D-Dimer 769.68 H Heparin Anti-Xa Level ABG pH POC ABG pCO2 POC ABG pO2 ABG pO2 ABG HCO3 ABG O2 Saturation ABG Base Excess ABG Hemoglobin ABG Oxyhemoglobin VBG pH ABG Sodium ABG Potassium ABG Glucose Oxyhemoglobin Sodium Potassium Chloride Carbon Dioxide BUN Creatinine Glucose POC Glucose 225 H 212 H Lactic Acid Calcium Ferritin AST Alkaline Phosphatase Magnesium Lactate Dehydrogenase Total Creatine Kinase CK-MB (CK-2) C-Reactive Protein Total Protein Albumin Troponin T HDL Cholesterol Arterial Blood Glucose Urine WBC (Auto) Urine Creatinine Urine Total Protein Phenytoin Coronavirus (PCR) Crossmatch 06/03/20 06/03/20 06/03/20 05:16 05:16 05:25 WBC 11.4 H RBC Hgb Hct MCHC RDW 16.4 H Lymph % (Auto) [place] % (Auto) Eos % (Auto) Lymph # [place] # Lymph # (Auto) [place] # (Auto) Eos # (Auto) Seg Neutrophils % Seg Neuts % (Manual) Lymphocytes % (Manual) Seg Neutrophils # Seg Neutrophils # Man Lymphocytes # (Manual) Monocytes % (Manual) Eosinophils % (Manual) Monocytes # (Manual) Eosinophils # (Manual) D-Dimer Heparin Anti-Xa Level ABG pH POC ABG pCO2 POC ABG pO2 ABG pO2 160.9 H ABG HCO3 19.4 L ABG O2 Saturation ABG Base Excess -4.9 L ABG Hemoglobin 7.0 L ABG Oxyhemoglobin VBG pH ABG Sodium ABG Potassium ABG Glucose Oxyhemoglobin Sodium Potassium Chloride Carbon Dioxide 18 L BUN 65 H Creatinine 2.0 H Glucose 175 H POC Glucose Lactic Acid Calcium 8.0 L Ferritin AST Alkaline Phosphatase Magnesium Lactate Dehydrogenase Total Creatine Kinase CK-MB (CK-2) C-Reactive Protein Total Protein 5.5 L Albumin 2.2 L Troponin T HDL Cholesterol Arterial Blood Glucose Urine WBC (Auto) Urine Creatinine Urine Total Protein Phenytoin Coronavirus (PCR) Crossmatch 06/03/20 06/03/20 06/03/20 06:07 11:58 18:24 WBC RBC Hgb Hct MCHC RDW Lymph % (Auto) [place] % (Auto) Eos % (Auto) Lymph # [place] # Lymph # (Auto) [place] # (Auto) Eos # (Auto) Seg Neutrophils % Seg Neuts % (Manual) Lymphocytes % (Manual) Seg Neutrophils # Seg Neutrophils # Man Lymphocytes # (Manual) Monocytes % (Manual) Eosinophils % (Manual) Monocytes # (Manual) Eosinophils # (Manual) D-Dimer Heparin Anti-Xa Level ABG pH POC ABG pCO2 POC ABG pO2 ABG pO2 ABG HCO3 ABG O2 Saturation ABG Base Excess ABG Hemoglobin ABG Oxyhemoglobin VBG pH ABG Sodium ABG Potassium ABG Glucose Oxyhemoglobin Sodium Potassium Chloride Carbon Dioxide BUN Creatinine Glucose POC Glucose 177 H 163 H 211 H Lactic Acid Calcium Ferritin AST Alkaline Phosphatase Magnesium Lactate Dehydrogenase Total Creatine Kinase CK-MB (CK-2) C-Reactive Protein Total Protein Albumin Troponin T HDL Cholesterol Arterial Blood Glucose Urine WBC (Auto) Urine Creatinine Urine Total Protein Phenytoin Coronavirus (PCR) Crossmatch 06/03/20 06/03/20 06/04/20 21:50 Unknown 00:26 WBC RBC Hgb Hct MCHC RDW Lymph % (Auto) [place] % (Auto) Eos % (Auto) Lymph # [place] # Lymph # (Auto) [place] # (Auto) Eos # (Auto) Seg Neutrophils % Seg Neuts % (Manual) Lymphocytes % (Manual) Seg Neutrophils # Seg Neutrophils # Man Lymphocytes # (Manual) Monocytes % (Manual) Eosinophils % (Manual) Monocytes # (Manual) Eosinophils # (Manual) D-Dimer Heparin Anti-Xa Level ABG pH POC ABG pCO2 POC ABG pO2 ABG pO2 ABG HCO3 ABG O2 Saturation ABG Base Excess ABG Hemoglobin ABG Oxyhemoglobin VBG pH ABG Sodium ABG Potassium ABG Glucose Oxyhemoglobin Sodium 135 L Potassium Chloride Carbon Dioxide 18 L BUN Creatinine Glucose POC Glucose 241 H Lactic Acid Calcium Ferritin AST Alkaline Phosphatase Magnesium Lactate Dehydrogenase Total Creatine Kinase CK-MB (CK-2) C-Reactive Protein Total Protein Albumin Troponin T HDL Cholesterol Arterial Blood Glucose Urine WBC (Auto) 11.0 H Urine Creatinine Urine Total Protein Phenytoin Coronavirus (PCR) Crossmatch 06/04/20 06/04/20 06/04/20 03:35 04:19 04:19 WBC RBC 3.15 L Hgb 8.9 L Hct 26.8 L D MCHC RDW 15.9 H Lymph % (Auto) 6.0 L [place] % (Auto) Eos % (Auto) Lymph # 0.6 L [place] # Lymph # (Auto) [place] # (Auto) Eos # (Auto) Seg Neutrophils % 86.6 H Seg Neuts % (Manual) Lymphocytes % (Manual) Seg Neutrophils # 9.1 H Seg Neutrophils # Man Lymphocytes # (Manual) Monocytes % (Manual) Eosinophils % (Manual) Monocytes # (Manual) Eosinophils # (Manual) D-Dimer Heparin Anti-Xa Level ABG pH 7.331 L POC ABG pCO2 POC ABG pO2 ABG pO2 ABG HCO3 ABG O2 Saturation ABG Base Excess -4.7 L ABG Hemoglobin 11.0 L ABG Oxyhemoglobin VBG pH ABG Sodium ABG Potassium ABG Glucose Oxyhemoglobin 93.9 L Sodium 136 L Potassium Chloride Carbon Dioxide 20 L BUN 73 H Creatinine 2.0 H Glucose 192 H POC Glucose Lactic Acid Calcium 8.0 L Ferritin AST Alkaline Phosphatase Magnesium Lactate Dehydrogenase 271 H Total Creatine Kinase CK-MB (CK-2) C-Reactive Protein 2.20 H Total Protein 5.0 L Albumin 2.0 L Troponin T HDL Cholesterol Arterial Blood Glucose Urine WBC (Auto) Urine Creatinine Urine Total Protein Phenytoin Coronavirus (PCR) Crossmatch 06/04/20 06/04/20 06/04/20 04:19 05:51 11:48 WBC RBC Hgb Hct MCHC RDW Lymph % (Auto) [place] % (Auto) Eos % (Auto) Lymph # [place] # Lymph # (Auto) [place] # (Auto) Eos # (Auto) Seg Neutrophils % Seg Neuts % (Manual) Lymphocytes % (Manual) Seg Neutrophils # Seg Neutrophils # Man Lymphocytes # (Manual) Monocytes % (Manual) Eosinophils % (Manual) Monocytes # (Manual) Eosinophils # (Manual) D-Dimer 414.52 H Heparin Anti-Xa Level ABG pH POC ABG pCO2 POC ABG pO2 ABG pO2 ABG HCO3 ABG O2 Saturation ABG Base Excess ABG Hemoglobin ABG Oxyhemoglobin VBG pH ABG Sodium ABG Potassium ABG Glucose Oxyhemoglobin Sodium Potassium Chloride Carbon Dioxide BUN Creatinine Glucose POC Glucose 179 H 213 H Lactic Acid Calcium Ferritin AST Alkaline Phosphatase Magnesium Lactate Dehydrogenase Total Creatine Kinase CK-MB (CK-2) C-Reactive Protein Total Protein Albumin Troponin T HDL Cholesterol Arterial Blood Glucose Urine WBC (Auto) Urine Creatinine Urine Total Protein Phenytoin Coronavirus (PCR) Crossmatch 06/04/20 06/05/20 06/05/20 18:25 00:16 05:00 WBC RBC Hgb Hct MCHC RDW Lymph % (Auto) [place] % (Auto) Eos % (Auto) Lymph # [place] # Lymph # (Auto) [place] # (Auto) Eos # (Auto) Seg Neutrophils % Seg Neuts % (Manual) Lymphocytes % (Manual) Seg Neutrophils # Seg Neutrophils # Man Lymphocytes # (Manual) Monocytes % (Manual) Eosinophils % (Manual) Monocytes # (Manual) Eosinophils # (Manual) D-Dimer Heparin Anti-Xa Level ABG pH 7.286 L POC ABG pCO2 POC ABG pO2 ABG pO2 96.2 H ABG HCO3 ABG O2 Saturation ABG Base Excess -6.3 L ABG Hemoglobin 8.8 L ABG Oxyhemoglobin VBG pH ABG Sodium ABG Potassium ABG Glucose Oxyhemoglobin 94.8 L Sodium Potassium Chloride Carbon Dioxide BUN Creatinine Glucose POC Glucose 238 H 183 H Lactic Acid Calcium Ferritin AST Alkaline Phosphatase Magnesium Lactate Dehydrogenase Total Creatine Kinase CK-MB (CK-2) C-Reactive Protein Total Protein Albumin Troponin T HDL Cholesterol Arterial Blood Glucose Urine WBC (Auto) Urine Creatinine Urine Total Protein Phenytoin Coronavirus (PCR) Crossmatch 06/05/20 06/05/20 06/05/20 05:39 07:25 07:25 WBC RBC 2.97 L Hgb 8.7 L Hct 25.7 L MCHC RDW 16.0 H Lymph % (Auto) 8.8 L [place] % (Auto) 13.3 H Eos % (Auto) Lymph # 0.8 L [place] # 1.3 H Lymph # (Auto) [place] # (Auto) Eos # (Auto) Seg Neutrophils % 77.3 H Seg Neuts % (Manual) Lymphocytes % (Manual) Seg Neutrophils # Seg Neutrophils # Man Lymphocytes # (Manual) Monocytes % (Manual) Eosinophils % (Manual) Monocytes # (Manual) Eosinophils # (Manual) D-Dimer Heparin Anti-Xa Level ABG pH POC ABG pCO2 POC ABG pO2 ABG pO2 ABG HCO3 ABG O2 Saturation ABG Base Excess ABG Hemoglobin ABG Oxyhemoglobin VBG pH ABG Sodium ABG Potassium ABG Glucose Oxyhemoglobin Sodium 133 L Potassium Chloride Carbon Dioxide 17 L BUN 89 H Creatinine 2.8 H Glucose 176 H POC Glucose 149 H Lactic Acid Calcium 7.7 L Ferritin AST Alkaline Phosphatase Magnesium Lactate Dehydrogenase Total Creatine Kinase CK-MB (CK-2) C-Reactive Protein Total Protein 4.2 L Albumin 1.9 L Troponin T HDL Cholesterol Arterial Blood Glucose Urine WBC (Auto) Urine Creatinine Urine Total Protein Phenytoin Coronavirus (PCR) Crossmatch 06/05/20 06/05/20 06/05/20 07:25 12:05 15:41 WBC RBC Hgb Hct MCHC RDW Lymph % (Auto) [place] % (Auto) Eos % (Auto) Lymph # [place] # Lymph # (Auto) [place] # (Auto) Eos # (Auto) Seg Neutrophils % Seg Neuts % (Manual) Lymphocytes % (Manual) Seg Neutrophils # Seg Neutrophils # Man Lymphocytes # (Manual) Monocytes % (Manual) Eosinophils % (Manual) Monocytes # (Manual) Eosinophils # (Manual) D-Dimer Heparin Anti-Xa Level 0.76 H 0.81 H ABG pH POC ABG pCO2 POC ABG pO2 ABG pO2 ABG HCO3 ABG O2 Saturation ABG Base Excess ABG Hemoglobin ABG Oxyhemoglobin VBG pH ABG Sodium ABG Potassium ABG Glucose Oxyhemoglobin Sodium Potassium Chloride Carbon Dioxide BUN Creatinine Glucose POC Glucose 198 H Lactic Acid Calcium Ferritin AST Alkaline Phosphatase Magnesium Lactate Dehydrogenase Total Creatine Kinase CK-MB (CK-2) C-Reactive Protein Total Protein Albumin Troponin T HDL Cholesterol Arterial Blood Glucose Urine WBC (Auto) Urine Creatinine Urine Total Protein Phenytoin Coronavirus (PCR) Crossmatch 06/05/20 06/05/20 06/06/20 18:08 23:25 04:00 WBC RBC Hgb Hct MCHC RDW Lymph % (Auto) [place] % (Auto) Eos % (Auto) Lymph # [place] # Lymph # (Auto) [place] # (Auto) Eos # (Auto) Seg Neutrophils % Seg Neuts % (Manual) Lymphocytes % (Manual) Seg Neutrophils # Seg Neutrophils # Man Lymphocytes # (Manual) Monocytes % (Manual) Eosinophils % (Manual) Monocytes # (Manual) Eosinophils # (Manual) D-Dimer Heparin Anti-Xa Level ABG pH POC ABG pCO2 POC ABG pO2 ABG pO2 ABG HCO3 ABG O2 Saturation ABG Base Excess ABG Hemoglobin ABG Oxyhemoglobin VBG pH ABG Sodium ABG Potassium ABG Glucose Oxyhemoglobin Sodium Potassium Chloride Carbon Dioxide BUN Creatinine Glucose POC Glucose 223 H 169 H Lactic Acid Calcium Ferritin AST Alkaline Phosphatase Magnesium Lactate Dehydrogenase Total Creatine Kinase CK-MB (CK-2) C-Reactive Protein Total Protein Albumin Troponin T HDL Cholesterol Arterial Blood Glucose Urine WBC (Auto) 15.0 H Urine Creatinine Urine Total Protein Phenytoin Coronavirus (PCR) Crossmatch 06/06/20 06/06/20 06/06/20 04:00 05:33 05:38 WBC RBC 2.97 L Hgb 8.7 L Hct 26.8 L MCHC RDW 16.8 H Lymph % (Auto) [place] % (Auto) Eos % (Auto) Lymph # [place] # Lymph # (Auto) [place] # (Auto) Eos # (Auto) Seg Neutrophils % Seg Neuts % (Manual) Lymphocytes % (Manual) Seg Neutrophils # Seg Neutrophils # Man Lymphocytes # (Manual) Monocytes % (Manual) Eosinophils % (Manual) Monocytes # (Manual) Eosinophils # (Manual) D-Dimer Heparin Anti-Xa Level ABG pH POC ABG pCO2 POC ABG pO2 ABG pO2 ABG HCO3 ABG O2 Saturation ABG Base Excess ABG Hemoglobin ABG Oxyhemoglobin VBG pH ABG Sodium ABG Potassium ABG Glucose Oxyhemoglobin Sodium Potassium Chloride Carbon Dioxide BUN Creatinine Glucose POC Glucose 186 H Lactic Acid Calcium Ferritin AST Alkaline Phosphatase Magnesium Lactate Dehydrogenase Total Creatine Kinase CK-MB (CK-2) C-Reactive Protein Total Protein Albumin Troponin T HDL Cholesterol Arterial Blood Glucose Urine WBC (Auto) Urine Creatinine 82.2 H Urine Total Protein 196 H Phenytoin Coronavirus (PCR) Crossmatch 06/06/20 06/06/20 06/06/20 05:38 12:25 17:03 WBC RBC Hgb Hct MCHC RDW Lymph % (Auto) [place] % (Auto) Eos % (Auto) Lymph # [place] # Lymph # (Auto) [place] # (Auto) Eos # (Auto) Seg Neutrophils % Seg Neuts % (Manual) Lymphocytes % (Manual) Seg Neutrophils # Seg Neutrophils # Man Lymphocytes # (Manual) Monocytes % (Manual) Eosinophils % (Manual) Monocytes # (Manual) Eosinophils # (Manual) D-Dimer Heparin Anti-Xa Level ABG pH POC ABG pCO2 POC ABG pO2 ABG pO2 ABG HCO3 ABG O2 Saturation ABG Base Excess ABG Hemoglobin ABG Oxyhemoglobin VBG pH ABG Sodium ABG Potassium ABG Glucose Oxyhemoglobin Sodium 134 L Potassium 5.2 H Chloride Carbon Dioxide 18 L BUN 97 H Creatinine 2.5 H Glucose 193 H POC Glucose 239 H 252 H Lactic Acid Calcium 7.5 L Ferritin AST Alkaline Phosphatase Magnesium Lactate Dehydrogenase Total Creatine Kinase CK-MB (CK-2) C-Reactive Protein Total Protein 4.1 L Albumin 1.9 L Troponin T HDL Cholesterol Arterial Blood Glucose Urine WBC (Auto) Urine Creatinine Urine Total Protein Phenytoin Coronavirus (PCR) Crossmatch 06/07/20 06/07/20 06/07/20 00:16 01:49 04:00 WBC RBC 2.91 L Hgb 8.4 L Hct 25.0 L MCHC RDW 16.1 H Lymph % (Auto) 5.7 L [place] % (Auto) 10.5 H Eos % (Auto) Lymph # 0.6 L [place] # 1.1 H Lymph # (Auto) [place] # (Auto) Eos # (Auto) Seg Neutrophils % 83.6 H Seg Neuts % (Manual) Lymphocytes % (Manual) Seg Neutrophils # 9.1 H Seg Neutrophils # Man Lymphocytes # (Manual) Monocytes % (Manual) Eosinophils % (Manual) Monocytes # (Manual) Eosinophils # (Manual) D-Dimer Heparin Anti-Xa Level 0.26 L ABG pH POC ABG pCO2 POC ABG pO2 ABG pO2 ABG HCO3 ABG O2 Saturation ABG Base Excess ABG Hemoglobin ABG Oxyhemoglobin VBG pH ABG Sodium ABG Potassium ABG Glucose Oxyhemoglobin Sodium Potassium Chloride Carbon Dioxide BUN Creatinine Glucose POC Glucose 173 H Lactic Acid Calcium Ferritin AST Alkaline Phosphatase Magnesium Lactate Dehydrogenase Total Creatine Kinase CK-MB (CK-2) C-Reactive Protein Total Protein Albumin Troponin T HDL Cholesterol Arterial Blood Glucose Urine WBC (Auto) Urine Creatinine Urine Total Protein Phenytoin Coronavirus (PCR) Crossmatch 06/07/20 06/07/20 06/07/20 04:00 04:54 05:51 WBC RBC Hgb Hct MCHC RDW Lymph % (Auto) [place] % (Auto) Eos % (Auto) Lymph # [place] # Lymph # (Auto) [place] # (Auto) Eos # (Auto) Seg Neutrophils % Seg Neuts % (Manual) Lymphocytes % (Manual) Seg Neutrophils # Seg Neutrophils # Man Lymphocytes # (Manual) Monocytes % (Manual) Eosinophils % (Manual) Monocytes # (Manual) Eosinophils # (Manual) D-Dimer Heparin Anti-Xa Level ABG pH 7.317 L POC ABG pCO2 POC ABG pO2 ABG pO2 71.4 L ABG HCO3 ABG O2 Saturation 94.3 L ABG Base Excess -4.8 L ABG Hemoglobin 7.1 L ABG Oxyhemoglobin VBG pH ABG Sodium ABG Potassium ABG Glucose Oxyhemoglobin 92.2 L Sodium 133 L Potassium Chloride Carbon Dioxide 18 L BUN 100 H Creatinine 2.5 H Glucose 158 H POC Glucose 168 H Lactic Acid Calcium 7.6 L Ferritin AST Alkaline Phosphatase Magnesium Lactate Dehydrogenase Total Creatine Kinase CK-MB (CK-2) C-Reactive Protein Total Protein 4.7 L Albumin 2.0 L Troponin T HDL Cholesterol Arterial Blood Glucose Urine WBC (Auto) Urine Creatinine Urine Total Protein Phenytoin Coronavirus (PCR) Crossmatch 06/07/20 06/07/20 06/07/20 12:03 17:17 20:10 WBC RBC Hgb Hct MCHC RDW Lymph % (Auto) [place] % (Auto) Eos % (Auto) Lymph # [place] # Lymph # (Auto) [place] # (Auto) Eos # (Auto) Seg Neutrophils % Seg Neuts % (Manual) Lymphocytes % (Manual) Seg Neutrophils # Seg Neutrophils # Man Lymphocytes # (Manual) Monocytes % (Manual) Eosinophils % (Manual) Monocytes # (Manual) Eosinophils # (Manual) D-Dimer Heparin Anti-Xa Level 0.17 L ABG pH POC ABG pCO2 POC ABG pO2 ABG pO2 ABG HCO3 ABG O2 Saturation ABG Base Excess ABG Hemoglobin ABG Oxyhemoglobin VBG pH ABG Sodium ABG Potassium ABG Glucose Oxyhemoglobin Sodium Potassium Chloride Carbon Dioxide BUN Creatinine Glucose POC Glucose 276 H 281 H Lactic Acid Calcium Ferritin AST Alkaline Phosphatase Magnesium Lactate Dehydrogenase Total Creatine Kinase CK-MB (CK-2) C-Reactive Protein Total Protein Albumin Troponin T HDL Cholesterol Arterial Blood Glucose Urine WBC (Auto) Urine Creatinine Urine Total Protein Phenytoin Coronavirus (PCR) Crossmatch 06/08/20 06/08/20 06/08/20 00:02 04:47 04:47 WBC 16.4 H RBC 3.07 L Hgb 8.6 L Hct 26.5 L MCHC RDW 16.3 H Lymph % (Auto) [place] % (Auto) Eos % (Auto) Lymph # [place] # Lymph # (Auto) [place] # (Auto) Eos # (Auto) Seg Neutrophils % Seg Neuts % (Manual) 90.0 H Lymphocytes % (Manual) 3.0 L Seg Neutrophils # Seg Neutrophils # Man 14.8 H Lymphocytes # (Manual) 0.5 L Monocytes % (Manual) Eosinophils % (Manual) Monocytes # (Manual) 1.1 H Eosinophils # (Manual) D-Dimer Heparin Anti-Xa Level ABG pH POC ABG pCO2 POC ABG pO2 ABG pO2 ABG HCO3 ABG O2 Saturation ABG Base Excess ABG Hemoglobin ABG Oxyhemoglobin VBG pH ABG Sodium ABG Potassium ABG Glucose Oxyhemoglobin Sodium 129 L Potassium Chloride 95.6 L Carbon Dioxide 17 L BUN 106 H Creatinine 2.5 H Glucose 213 H POC Glucose 242 H Lactic Acid Calcium 7.6 L Ferritin AST Alkaline Phosphatase Magnesium Lactate Dehydrogenase Total Creatine Kinase CK-MB (CK-2) C-Reactive Protein Total Protein 5.0 L Albumin 2.1 L Troponin T HDL Cholesterol Arterial Blood Glucose Urine WBC (Auto) Urine Creatinine Urine Total Protein Phenytoin Coronavirus (PCR) Crossmatch 06/08/20 06/08/20 06/08/20 05:40 11:55 17:54 WBC RBC Hgb Hct MCHC RDW Lymph % (Auto) [place] % (Auto) Eos % (Auto) Lymph # [place] # Lymph # (Auto) [place] # (Auto) Eos # (Auto) Seg Neutrophils % Seg Neuts % (Manual) Lymphocytes % (Manual) Seg Neutrophils # Seg Neutrophils # Man Lymphocytes # (Manual) Monocytes % (Manual) Eosinophils % (Manual) Monocytes # (Manual) Eosinophils # (Manual) D-Dimer Heparin Anti-Xa Level ABG pH POC ABG pCO2 POC ABG pO2 ABG pO2 ABG HCO3 ABG O2 Saturation ABG Base Excess ABG Hemoglobin ABG Oxyhemoglobin VBG pH ABG Sodium ABG Potassium ABG Glucose Oxyhemoglobin Sodium Potassium Chloride Carbon Dioxide BUN Creatinine Glucose POC Glucose 221 H 218 H 163 H Lactic Acid Calcium Ferritin AST Alkaline Phosphatase Magnesium Lactate Dehydrogenase Total Creatine Kinase CK-MB (CK-2) C-Reactive Protein Total Protein Albumin Troponin T HDL Cholesterol Arterial Blood Glucose Urine WBC (Auto) Urine Creatinine Urine Total Protein Phenytoin Coronavirus (PCR) Crossmatch 06/08/20 06/09/20 06/09/20 22:01 00:09 05:16 WBC 19.0 H RBC 3.35 L Hgb 9.2 L Hct 28.5 L MCHC RDW 16.3 H Lymph % (Auto) [place] % (Auto) Eos % (Auto) Lymph # [place] # Lymph # (Auto) [place] # (Auto) Eos # (Auto) Seg Neutrophils % Seg Neuts % (Manual) 85.0 H Lymphocytes % (Manual) 7.0 L Seg Neutrophils # Seg Neutrophils # Man 16.2 H Lymphocytes # (Manual) Monocytes % (Manual) Eosinophils % (Manual) Monocytes # (Manual) 1.3 H Eosinophils # (Manual) D-Dimer Heparin Anti-Xa Level ABG pH POC ABG pCO2 POC ABG pO2 ABG pO2 ABG HCO3 ABG O2 Saturation ABG Base Excess ABG Hemoglobin ABG Oxyhemoglobin VBG pH ABG Sodium ABG Potassium ABG Glucose Oxyhemoglobin Sodium Potassium Chloride Carbon Dioxide BUN Creatinine Glucose POC Glucose 182 H 150 H Lactic Acid Calcium Ferritin AST Alkaline Phosphatase Magnesium Lactate Dehydrogenase Total Creatine Kinase CK-MB (CK-2) C-Reactive Protein Total Protein Albumin Troponin T HDL Cholesterol Arterial Blood Glucose Urine WBC (Auto) Urine Creatinine Urine Total Protein Phenytoin Coronavirus (PCR) Crossmatch 06/09/20 06/09/20 06/09/20 05:16 05:24 11:29 WBC RBC Hgb Hct MCHC RDW Lymph % (Auto) [place] % (Auto) Eos % (Auto) Lymph # [place] # Lymph # (Auto) [place] # (Auto) Eos # (Auto) Seg Neutrophils % Seg Neuts % (Manual) Lymphocytes % (Manual) Seg Neutrophils # Seg Neutrophils # Man Lymphocytes # (Manual) Monocytes % (Manual) Eosinophils % (Manual) Monocytes # (Manual) Eosinophils # (Manual) D-Dimer Heparin Anti-Xa Level ABG pH POC ABG pCO2 POC ABG pO2 ABG pO2 ABG HCO3 ABG O2 Saturation ABG Base Excess ABG Hemoglobin ABG Oxyhemoglobin VBG pH ABG Sodium ABG Potassium ABG Glucose Oxyhemoglobin Sodium 133 L Potassium Chloride Carbon Dioxide 19 L BUN 109 H Creatinine 2.1 H Glucose 133 H POC Glucose 128 H 119 H Lactic Acid Calcium 7.7 L Ferritin AST Alkaline Phosphatase < 5 L Magnesium Lactate Dehydrogenase Total Creatine Kinase CK-MB (CK-2) C-Reactive Protein Total Protein 4.6 L Albumin < 0.2 L Troponin T HDL Cholesterol Arterial Blood Glucose Urine WBC (Auto) Urine Creatinine Urine Total Protein Phenytoin Coronavirus (PCR) Crossmatch 06/09/20 06/10/20 06/10/20 17:32 00:00 05:49 WBC RBC Hgb Hct MCHC RDW Lymph % (Auto) [place] % (Auto) Eos % (Auto) Lymph # [place] # Lymph # (Auto) [place] # (Auto) Eos # (Auto) Seg Neutrophils % Seg Neuts % (Manual) Lymphocytes % (Manual) Seg Neutrophils # Seg Neutrophils # Man Lymphocytes # (Manual) Monocytes % (Manual) Eosinophils % (Manual) Monocytes # (Manual) Eosinophils # (Manual) D-Dimer Heparin Anti-Xa Level 0.19 L ABG pH POC ABG pCO2 POC ABG pO2 ABG pO2 ABG HCO3 ABG O2 Saturation ABG Base Excess ABG Hemoglobin ABG Oxyhemoglobin VBG pH ABG Sodium ABG Potassium ABG Glucose Oxyhemoglobin Sodium Potassium Chloride Carbon Dioxide BUN Creatinine Glucose POC Glucose 106 H 117 H Lactic Acid Calcium Ferritin AST Alkaline Phosphatase Magnesium Lactate Dehydrogenase Total Creatine Kinase CK-MB (CK-2) C-Reactive Protein Total Protein Albumin Troponin T HDL Cholesterol Arterial Blood Glucose Urine WBC (Auto) Urine Creatinine Urine Total Protein Phenytoin Coronavirus (PCR) Crossmatch 06/10/20 06/10/20 06/10/20 05:54 07:40 11:40 WBC RBC Hgb Hct MCHC RDW Lymph % (Auto) [place] % (Auto) Eos % (Auto) Lymph # [place] # Lymph # (Auto) [place] # (Auto) Eos # (Auto) Seg Neutrophils % Seg Neuts % (Manual) Lymphocytes % (Manual) Seg Neutrophils # Seg Neutrophils # Man Lymphocytes # (Manual) Monocytes % (Manual) Eosinophils % (Manual) Monocytes # (Manual) Eosinophils # (Manual) D-Dimer Heparin Anti-Xa Level ABG pH POC ABG pCO2 POC ABG pO2 ABG pO2 ABG HCO3 ABG O2 Saturation ABG Base Excess ABG Hemoglobin ABG Oxyhemoglobin VBG pH ABG Sodium ABG Potassium ABG Glucose Oxyhemoglobin Sodium 146 H D Potassium Chloride Carbon Dioxide 20 L BUN 99 H Creatinine 1.9 H Glucose 121 H POC Glucose 127 H 138 H Lactic Acid Calcium 8.2 L Ferritin AST Alkaline Phosphatase Magnesium Lactate Dehydrogenase Total Creatine Kinase CK-MB (CK-2) C-Reactive Protein Total Protein Albumin Troponin T HDL Cholesterol Arterial Blood Glucose Urine WBC (Auto) Urine Creatinine Urine Total Protein Phenytoin Coronavirus (PCR) Crossmatch 06/10/20 06/10/20 06/10/20 14:44 17:31 23:22 WBC RBC Hgb Hct MCHC RDW Lymph % (Auto) [place] % (Auto) Eos % (Auto) Lymph # [place] # Lymph # (Auto) [place] # (Auto) Eos # (Auto) Seg Neutrophils % Seg Neuts % (Manual) Lymphocytes % (Manual) Seg Neutrophils # Seg Neutrophils # Man Lymphocytes # (Manual) Monocytes % (Manual) Eosinophils % (Manual) Monocytes # (Manual) Eosinophils # (Manual) D-Dimer Heparin Anti-Xa Level 0.17 L ABG pH POC ABG pCO2 POC ABG pO2 ABG pO2 ABG HCO3 ABG O2 Saturation ABG Base Excess ABG Hemoglobin ABG Oxyhemoglobin VBG pH ABG Sodium ABG Potassium ABG Glucose Oxyhemoglobin Sodium Potassium Chloride Carbon Dioxide BUN Creatinine Glucose POC Glucose 128 H 114 H Lactic Acid Calcium Ferritin AST Alkaline Phosphatase Magnesium Lactate Dehydrogenase Total Creatine Kinase CK-MB (CK-2) C-Reactive Protein Total Protein Albumin Troponin T HDL Cholesterol Arterial Blood Glucose Urine WBC (Auto) Urine Creatinine Urine Total Protein Phenytoin Coronavirus (PCR) Crossmatch 06/11/20 06/11/20 06/11/20 00:22 03:45 03:45 WBC 14.6 H RBC 2.77 L Hgb 7.9 L Hct 24.3 L MCHC RDW 16.8 H Lymph % (Auto) 6.6 L [place] % (Auto) 8.5 H Eos % (Auto) Lymph # 1.0 L [place] # 1.2 H Lymph # (Auto) [place] # (Auto) Eos # (Auto) Seg Neutrophils % 82.9 H Seg Neuts % (Manual) Lymphocytes % (Manual) Seg Neutrophils # 12.1 H Seg Neutrophils # Man Lymphocytes # (Manual) Monocytes % (Manual) Eosinophils % (Manual) Monocytes # (Manual) Eosinophils # (Manual) D-Dimer Heparin Anti-Xa Level 0.24 L ABG pH POC ABG pCO2 POC ABG pO2 ABG pO2 ABG HCO3 ABG O2 Saturation ABG Base Excess ABG Hemoglobin ABG Oxyhemoglobin VBG pH ABG Sodium ABG Potassium ABG Glucose Oxyhemoglobin Sodium Potassium Chloride Carbon Dioxide 20 L BUN 88 H Creatinine 1.5 H Glucose 111 H POC Glucose Lactic Acid Calcium 8.2 L Ferritin AST Alkaline Phosphatase Magnesium Lactate Dehydrogenase Total Creatine Kinase CK-MB (CK-2) C-Reactive Protein Total Protein Albumin Troponin T HDL Cholesterol Arterial Blood Glucose Urine WBC (Auto) Urine Creatinine Urine Total Protein Phenytoin Coronavirus (PCR) Crossmatch 06/11/20 06/11/20 06/11/20 06:03 10:22 11:11 WBC RBC Hgb Hct MCHC RDW Lymph % (Auto) [place] % (Auto) Eos % (Auto) Lymph # [place] # Lymph # (Auto) [place] # (Auto) Eos # (Auto) Seg Neutrophils % Seg Neuts % (Manual) Lymphocytes % (Manual) Seg Neutrophils # Seg Neutrophils # Man Lymphocytes # (Manual) Monocytes % (Manual) Eosinophils % (Manual) Monocytes # (Manual) Eosinophils # (Manual) D-Dimer Heparin Anti-Xa Level 0.26 L ABG pH POC ABG pCO2 POC ABG pO2 ABG pO2 ABG HCO3 ABG O2 Saturation ABG Base Excess ABG Hemoglobin 9.6 L ABG Oxyhemoglobin VBG pH ABG Sodium ABG Potassium ABG Glucose Oxyhemoglobin Sodium Potassium Chloride Carbon Dioxide BUN Creatinine Glucose POC Glucose 114 H Lactic Acid Calcium Ferritin AST Alkaline Phosphatase Magnesium Lactate Dehydrogenase Total Creatine Kinase CK-MB (CK-2) C-Reactive Protein Total Protein Albumin Troponin T HDL Cholesterol Arterial Blood Glucose Urine WBC (Auto) Urine Creatinine Urine Total Protein Phenytoin Coronavirus (PCR) Crossmatch 06/11/20 06/11/20 06/12/20 12:24 17:24 00:21 WBC RBC Hgb Hct MCHC RDW Lymph % (Auto) [place] % (Auto) Eos % (Auto) Lymph # [place] # Lymph # (Auto) [place] # (Auto) Eos # (Auto) Seg Neutrophils % Seg Neuts % (Manual) Lymphocytes % (Manual) Seg Neutrophils # Seg Neutrophils # Man Lymphocytes # (Manual) Monocytes % (Manual) Eosinophils % (Manual) Monocytes # (Manual) Eosinophils # (Manual) D-Dimer Heparin Anti-Xa Level ABG pH POC ABG pCO2 POC ABG pO2 ABG pO2 ABG HCO3 ABG O2 Saturation ABG Base Excess ABG Hemoglobin ABG Oxyhemoglobin VBG pH ABG Sodium ABG Potassium ABG Glucose Oxyhemoglobin Sodium Potassium Chloride Carbon Dioxide BUN Creatinine Glucose POC Glucose 119 H 126 H 117 H Lactic Acid Calcium Ferritin AST Alkaline Phosphatase Magnesium Lactate Dehydrogenase Total Creatine Kinase CK-MB (CK-2) C-Reactive Protein Total Protein Albumin Troponin T HDL Cholesterol Arterial Blood Glucose Urine WBC (Auto) Urine Creatinine Urine Total Protein Phenytoin Coronavirus (PCR) Crossmatch 06/12/20 06/12/20 06/12/20 02:46 02:46 05:46 WBC 13.2 H RBC 2.83 L Hgb 8.3 L Hct 24.3 L MCHC RDW 16.6 H Lymph % (Auto) 6.2 L [place] % (Auto) 9.5 H Eos % (Auto) Lymph # 0.8 L [place] # 1.3 H Lymph # (Auto) [place] # (Auto) Eos # (Auto) Seg Neutrophils % 81.9 H Seg Neuts % (Manual) Lymphocytes % (Manual) Seg Neutrophils # 10.9 H Seg Neutrophils # Man Lymphocytes # (Manual) Monocytes % (Manual) Eosinophils % (Manual) Monocytes # (Manual) Eosinophils # (Manual) D-Dimer Heparin Anti-Xa Level ABG pH POC ABG pCO2 POC ABG pO2 ABG pO2 ABG HCO3 ABG O2 Saturation ABG Base Excess ABG Hemoglobin ABG Oxyhemoglobin VBG pH ABG Sodium ABG Potassium ABG Glucose Oxyhemoglobin Sodium Potassium 3.5 L Chloride Carbon Dioxide BUN 77 H Creatinine 1.3 H Glucose POC Glucose 132 H Lactic Acid Calcium 8.3 L Ferritin AST Alkaline Phosphatase Magnesium Lactate Dehydrogenase Total Creatine Kinase CK-MB (CK-2) C-Reactive Protein Total Protein Albumin Troponin T HDL Cholesterol Arterial Blood Glucose Urine WBC (Auto) Urine Creatinine Urine Total Protein Phenytoin Coronavirus (PCR) Crossmatch 06/12/20 06/12/20 06/12/20 09:20 12:16 17:48 WBC RBC Hgb Hct MCHC RDW Lymph % (Auto) [place] % (Auto) Eos % (Auto) Lymph # [place] # Lymph # (Auto) [place] # (Auto) Eos # (Auto) Seg Neutrophils % Seg Neuts % (Manual) Lymphocytes % (Manual) Seg Neutrophils # Seg Neutrophils # Man Lymphocytes # (Manual) Monocytes % (Manual) Eosinophils % (Manual) Monocytes # (Manual) Eosinophils # (Manual) D-Dimer Heparin Anti-Xa Level ABG pH POC ABG pCO2 POC ABG pO2 ABG pO2 91.1 H ABG HCO3 ABG O2 Saturation ABG Base Excess ABG Hemoglobin ABG Oxyhemoglobin VBG pH ABG Sodium ABG Potassium ABG Glucose Oxyhemoglobin 94.8 L Sodium Potassium Chloride Carbon Dioxide BUN Creatinine Glucose POC Glucose 167 H 182 H Lactic Acid Calcium Ferritin AST Alkaline Phosphatase Magnesium Lactate Dehydrogenase Total Creatine Kinase CK-MB (CK-2) C-Reactive Protein Total Protein Albumin Troponin T HDL Cholesterol Arterial Blood Glucose Urine WBC (Auto) Urine Creatinine Urine Total Protein Phenytoin Coronavirus (PCR) Crossmatch 06/13/20 06/13/20 06/13/20 00:08 05:37 09:09 WBC RBC Hgb Hct MCHC RDW Lymph % (Auto) [place] % (Auto) Eos % (Auto) Lymph # [place] # Lymph # (Auto) [place] # (Auto) Eos # (Auto) Seg Neutrophils % Seg Neuts % (Manual) Lymphocytes % (Manual) Seg Neutrophils # Seg Neutrophils # Man Lymphocytes # (Manual) Monocytes % (Manual) Eosinophils % (Manual) Monocytes # (Manual) Eosinophils # (Manual) D-Dimer Heparin Anti-Xa Level 0.86 H ABG pH POC ABG pCO2 POC ABG pO2 ABG pO2 ABG HCO3 ABG O2 Saturation ABG Base Excess ABG Hemoglobin ABG Oxyhemoglobin VBG pH ABG Sodium ABG Potassium ABG Glucose Oxyhemoglobin Sodium Potassium Chloride Carbon Dioxide BUN Creatinine Glucose POC Glucose 142 H 119 H Lactic Acid Calcium Ferritin AST Alkaline Phosphatase Magnesium Lactate Dehydrogenase Total Creatine Kinase CK-MB (CK-2) C-Reactive Protein Total Protein Albumin Troponin T HDL Cholesterol Arterial Blood Glucose Urine WBC (Auto) Urine Creatinine Urine Total Protein Phenytoin Coronavirus (PCR) Crossmatch 06/13/20 06/13/20 06/13/20 12:28 17:55 21:17 WBC RBC Hgb Hct MCHC RDW Lymph % (Auto) [place] % (Auto) Eos % (Auto) Lymph # [place] # Lymph # (Auto) [place] # (Auto) Eos # (Auto) Seg Neutrophils % Seg Neuts % (Manual) Lymphocytes % (Manual) Seg Neutrophils # Seg Neutrophils # Man Lymphocytes # (Manual) Monocytes % (Manual) Eosinophils % (Manual) Monocytes # (Manual) Eosinophils # (Manual) D-Dimer Heparin Anti-Xa Level ABG pH POC ABG pCO2 POC ABG pO2 ABG pO2 ABG HCO3 ABG O2 Saturation ABG Base Excess ABG Hemoglobin ABG Oxyhemoglobin VBG pH ABG Sodium ABG Potassium ABG Glucose Oxyhemoglobin Sodium Potassium Chloride Carbon Dioxide BUN 61 H Creatinine Glucose 131 H POC Glucose 165 H 174 H Lactic Acid Calcium Ferritin AST Alkaline Phosphatase Magnesium Lactate Dehydrogenase Total Creatine Kinase CK-MB (CK-2) C-Reactive Protein Total Protein Albumin Troponin T HDL Cholesterol Arterial Blood Glucose Urine WBC (Auto) Urine Creatinine Urine Total Protein Phenytoin Coronavirus (PCR) Crossmatch 06/13/20 06/13/20 06/14/20 21:17 23:50 05:34 WBC RBC Hgb Hct MCHC RDW Lymph % (Auto) [place] % (Auto) Eos % (Auto) Lymph # [place] # Lymph # (Auto) [place] # (Auto) Eos # (Auto) Seg Neutrophils % Seg Neuts % (Manual) Lymphocytes % (Manual) Seg Neutrophils # Seg Neutrophils # Man Lymphocytes # (Manual) Monocytes % (Manual) Eosinophils % (Manual) Monocytes # (Manual) Eosinophils # (Manual) D-Dimer Heparin Anti-Xa Level 0.72 H ABG pH POC ABG pCO2 POC ABG pO2 ABG pO2 ABG HCO3 ABG O2 Saturation ABG Base Excess ABG Hemoglobin ABG Oxyhemoglobin VBG pH ABG Sodium ABG Potassium ABG Glucose Oxyhemoglobin Sodium 146 H Potassium Chloride 107.6 H Carbon Dioxide BUN 61 H Creatinine 1.3 H Glucose 135 H POC Glucose 146 H Lactic Acid Calcium Ferritin AST Alkaline Phosphatase Magnesium Lactate Dehydrogenase Total Creatine Kinase CK-MB (CK-2) C-Reactive Protein Total Protein Albumin Troponin T HDL Cholesterol Arterial Blood Glucose Urine WBC (Auto) Urine Creatinine Urine Total Protein Phenytoin Coronavirus (PCR) Crossmatch 06/14/20 06/14/20 06/14/20 06:11 09:28 11:30 WBC RBC Hgb Hct MCHC RDW Lymph % (Auto) [place] % (Auto) Eos % (Auto) Lymph # [place] # Lymph # (Auto) [place] # (Auto) Eos # (Auto) Seg Neutrophils % Seg Neuts % (Manual) Lymphocytes % (Manual) Seg Neutrophils # Seg Neutrophils # Man Lymphocytes # (Manual) Monocytes % (Manual) Eosinophils % (Manual) Monocytes # (Manual) Eosinophils # (Manual) D-Dimer Heparin Anti-Xa Level 0.90 H ABG pH POC ABG pCO2 POC ABG pO2 ABG pO2 ABG HCO3 ABG O2 Saturation ABG Base Excess ABG Hemoglobin ABG Oxyhemoglobin VBG pH ABG Sodium ABG Potassium ABG Glucose Oxyhemoglobin Sodium Potassium Chloride Carbon Dioxide BUN Creatinine Glucose POC Glucose 141 H 186 H Lactic Acid Calcium Ferritin AST Alkaline Phosphatase Magnesium Lactate Dehydrogenase Total Creatine Kinase CK-MB (CK-2) C-Reactive Protein Total Protein Albumin Troponin T HDL Cholesterol Arterial Blood Glucose Urine WBC (Auto) Urine Creatinine Urine Total Protein Phenytoin Coronavirus (PCR) Crossmatch 06/14/20 06/14/20 06/14/20 16:07 18:16 23:51 WBC RBC Hgb Hct MCHC RDW Lymph % (Auto) [place] % (Auto) Eos % (Auto) Lymph # [place] # Lymph # (Auto) [place] # (Auto) Eos # (Auto) Seg Neutrophils % Seg Neuts % (Manual) Lymphocytes % (Manual) Seg Neutrophils # Seg Neutrophils # Man Lymphocytes # (Manual) Monocytes % (Manual) Eosinophils % (Manual) Monocytes # (Manual) Eosinophils # (Manual) D-Dimer Heparin Anti-Xa Level 0.82 H ABG pH POC ABG pCO2 POC ABG pO2 ABG pO2 ABG HCO3 ABG O2 Saturation ABG Base Excess ABG Hemoglobin ABG Oxyhemoglobin VBG pH ABG Sodium ABG Potassium ABG Glucose Oxyhemoglobin Sodium Potassium Chloride Carbon Dioxide BUN Creatinine Glucose POC Glucose 106 H 154 H Lactic Acid Calcium Ferritin AST Alkaline Phosphatase Magnesium Lactate Dehydrogenase Total Creatine Kinase CK-MB (CK-2) C-Reactive Protein Total Protein Albumin Troponin T HDL Cholesterol Arterial Blood Glucose Urine WBC (Auto) Urine Creatinine Urine Total Protein Phenytoin Coronavirus (PCR) Crossmatch 06/15/20 06/15/20 06/15/20 04:24 04:24 05:59 WBC RBC 2.75 L Hgb 7.9 L Hct 24.0 L MCHC RDW 16.4 H Lymph % (Auto) 12.9 L [place] % (Auto) 8.7 H Eos % (Auto) 4.6 H Lymph # 1.1 L [place] # Lymph # (Auto) [place] # (Auto) Eos # (Auto) Seg Neutrophils % 73.2 H Seg Neuts % (Manual) Lymphocytes % (Manual) Seg Neutrophils # Seg Neutrophils # Man Lymphocytes # (Manual) Monocytes % (Manual) Eosinophils % (Manual) Monocytes # (Manual) Eosinophils # (Manual) D-Dimer Heparin Anti-Xa Level ABG pH POC ABG pCO2 POC ABG pO2 ABG pO2 ABG HCO3 ABG O2 Saturation ABG Base Excess ABG Hemoglobin ABG Oxyhemoglobin VBG pH ABG Sodium ABG Potassium ABG Glucose Oxyhemoglobin Sodium Potassium 3.4 L Chloride Carbon Dioxide BUN 55 H Creatinine 1.3 H Glucose 142 H POC Glucose 131 H Lactic Acid Calcium Ferritin AST Alkaline Phosphatase Magnesium Lactate Dehydrogenase Total Creatine Kinase CK-MB (CK-2) C-Reactive Protein Total Protein Albumin Troponin T HDL Cholesterol Arterial Blood Glucose Urine WBC (Auto) Urine Creatinine Urine Total Protein Phenytoin Coronavirus (PCR) Crossmatch 06/15/20 06/15/20 06/16/20 12:33 17:07 00:22 WBC RBC Hgb Hct MCHC RDW Lymph % (Auto) [place] % (Auto) Eos % (Auto) Lymph # [place] # Lymph # (Auto) [place] # (Auto) Eos # (Auto) Seg Neutrophils % Seg Neuts % (Manual) Lymphocytes % (Manual) Seg Neutrophils # Seg Neutrophils # Man Lymphocytes # (Manual) Monocytes % (Manual) Eosinophils % (Manual) Monocytes # (Manual) Eosinophils # (Manual) D-Dimer Heparin Anti-Xa Level 0.21 L ABG pH POC ABG pCO2 POC ABG pO2 ABG pO2 ABG HCO3 ABG O2 Saturation ABG Base Excess ABG Hemoglobin ABG Oxyhemoglobin VBG pH ABG Sodium ABG Potassium ABG Glucose Oxyhemoglobin Sodium Potassium Chloride Carbon Dioxide BUN Creatinine Glucose POC Glucose 180 H 185 H Lactic Acid Calcium Ferritin AST Alkaline Phosphatase Magnesium Lactate Dehydrogenase Total Creatine Kinase CK-MB (CK-2) C-Reactive Protein Total Protein Albumin Troponin T HDL Cholesterol Arterial Blood Glucose Urine WBC (Auto) Urine Creatinine Urine Total Protein Phenytoin Coronavirus (PCR) Crossmatch 06/16/20 06/16/20 06/16/20 01:45 08:06 09:15 WBC RBC Hgb Hct MCHC RDW Lymph % (Auto) [place] % (Auto) Eos % (Auto) Lymph # [place] # Lymph # (Auto) [place] # (Auto) Eos # (Auto) Seg Neutrophils % Seg Neuts % (Manual) Lymphocytes % (Manual) Seg Neutrophils # Seg Neutrophils # Man Lymphocytes # (Manual) Monocytes % (Manual) Eosinophils % (Manual) Monocytes # (Manual) Eosinophils # (Manual) D-Dimer Heparin Anti-Xa Level ABG pH POC ABG pCO2 POC ABG pO2 ABG pO2 ABG HCO3 ABG O2 Saturation ABG Base Excess ABG Hemoglobin ABG Oxyhemoglobin VBG pH ABG Sodium ABG Potassium ABG Glucose Oxyhemoglobin Sodium Potassium Chloride Carbon Dioxide BUN 49 H Creatinine Glucose 154 H POC Glucose 140 H 171 H Lactic Acid Calcium Ferritin AST Alkaline Phosphatase Magnesium Lactate Dehydrogenase Total Creatine Kinase CK-MB (CK-2) C-Reactive Protein Total Protein Albumin Troponin T HDL Cholesterol Arterial Blood Glucose Urine WBC (Auto) Urine Creatinine Urine Total Protein Phenytoin Coronavirus (PCR) Crossmatch 06/16/20 06/16/20 06/16/20 10:46 12:33 17:54 WBC RBC Hgb Hct MCHC RDW Lymph % (Auto) [place] % (Auto) Eos % (Auto) Lymph # [place] # Lymph # (Auto) [place] # (Auto) Eos # (Auto) Seg Neutrophils % Seg Neuts % (Manual) Lymphocytes % (Manual) Seg Neutrophils # Seg Neutrophils # Man Lymphocytes # (Manual) Monocytes % (Manual) Eosinophils % (Manual) Monocytes # (Manual) Eosinophils # (Manual) D-Dimer Heparin Anti-Xa Level 0.12 L ABG pH POC ABG pCO2 POC ABG pO2 ABG pO2 ABG HCO3 ABG O2 Saturation ABG Base Excess ABG Hemoglobin ABG Oxyhemoglobin VBG pH ABG Sodium ABG Potassium ABG Glucose Oxyhemoglobin Sodium Potassium Chloride Carbon Dioxide BUN Creatinine Glucose POC Glucose 166 H 151 H Lactic Acid Calcium Ferritin AST Alkaline Phosphatase Magnesium Lactate Dehydrogenase Total Creatine Kinase CK-MB (CK-2) C-Reactive Protein Total Protein Albumin Troponin T HDL Cholesterol Arterial Blood Glucose Urine WBC (Auto) Urine Creatinine Urine Total Protein Phenytoin Coronavirus (PCR) Crossmatch 06/16/20 06/17/20 06/17/20 18:47 00:00 02:19 WBC RBC Hgb Hct MCHC RDW Lymph % (Auto) [place] % (Auto) Eos % (Auto) Lymph # [place] # Lymph # (Auto) [place] # (Auto) Eos # (Auto) Seg Neutrophils % Seg Neuts % (Manual) Lymphocytes % (Manual) Seg Neutrophils # Seg Neutrophils # Man Lymphocytes # (Manual) Monocytes % (Manual) Eosinophils % (Manual) Monocytes # (Manual) Eosinophils # (Manual) D-Dimer Heparin Anti-Xa Level 0.73 H 0.77 H ABG pH POC ABG pCO2 POC ABG pO2 ABG pO2 ABG HCO3 ABG O2 Saturation ABG Base Excess ABG Hemoglobin ABG Oxyhemoglobin VBG pH ABG Sodium ABG Potassium ABG Glucose Oxyhemoglobin Sodium Potassium Chloride Carbon Dioxide BUN Creatinine Glucose POC Glucose 139 H Lactic Acid Calcium Ferritin AST Alkaline Phosphatase Magnesium Lactate Dehydrogenase Total Creatine Kinase CK-MB (CK-2) C-Reactive Protein Total Protein Albumin Troponin T HDL Cholesterol Arterial Blood Glucose Urine WBC (Auto) Urine Creatinine Urine Total Protein Phenytoin Coronavirus (PCR) Crossmatch 06/17/20 06/17/20 06/17/20 06:07 11:42 16:43 WBC RBC Hgb Hct MCHC RDW Lymph % (Auto) [place] % (Auto) Eos % (Auto) Lymph # [place] # Lymph # (Auto) [place] # (Auto) Eos # (Auto) Seg Neutrophils % Seg Neuts % (Manual) Lymphocytes % (Manual) Seg Neutrophils # Seg Neutrophils # Man Lymphocytes # (Manual) Monocytes % (Manual) Eosinophils % (Manual) Monocytes # (Manual) Eosinophils # (Manual) D-Dimer Heparin Anti-Xa Level 0.73 H ABG pH POC ABG pCO2 POC ABG pO2 ABG pO2 ABG HCO3 ABG O2 Saturation ABG Base Excess ABG Hemoglobin ABG Oxyhemoglobin VBG pH ABG Sodium ABG Potassium ABG Glucose Oxyhemoglobin Sodium Potassium Chloride Carbon Dioxide BUN Creatinine Glucose POC Glucose 169 H 169 H Lactic Acid Calcium Ferritin AST Alkaline Phosphatase Magnesium Lactate Dehydrogenase Total Creatine Kinase CK-MB (CK-2) C-Reactive Protein Total Protein Albumin Troponin T HDL Cholesterol Arterial Blood Glucose Urine WBC (Auto) Urine Creatinine Urine Total Protein Phenytoin Coronavirus (PCR) Crossmatch 06/17/20 06/17/20 06/17/20 18:18 23:08 23:16 WBC RBC Hgb Hct MCHC RDW Lymph % (Auto) [place] % (Auto) Eos % (Auto) Lymph # [place] # Lymph # (Auto) [place] # (Auto) Eos # (Auto) Seg Neutrophils % Seg Neuts % (Manual) Lymphocytes % (Manual) Seg Neutrophils # Seg Neutrophils # Man Lymphocytes # (Manual) Monocytes % (Manual) Eosinophils % (Manual) Monocytes # (Manual) Eosinophils # (Manual) D-Dimer Heparin Anti-Xa Level 0.71 H ABG pH POC ABG pCO2 POC ABG pO2 ABG pO2 ABG HCO3 ABG O2 Saturation ABG Base Excess ABG Hemoglobin ABG Oxyhemoglobin VBG pH ABG Sodium ABG Potassium ABG Glucose Oxyhemoglobin Sodium Potassium Chloride Carbon Dioxide BUN Creatinine Glucose POC Glucose 159 H 134 H Lactic Acid Calcium Ferritin AST Alkaline Phosphatase Magnesium Lactate Dehydrogenase Total Creatine Kinase CK-MB (CK-2) C-Reactive Protein Total Protein Albumin Troponin T HDL Cholesterol Arterial Blood Glucose Urine WBC (Auto) Urine Creatinine Urine Total Protein Phenytoin Coronavirus (PCR) Crossmatch 06/18/20 06/18/20 06/18/20 04:42 05:52 11:50 WBC RBC Hgb Hct MCHC RDW Lymph % (Auto) [place] % (Auto) Eos % (Auto) Lymph # [place] # Lymph # (Auto) [place] # (Auto) Eos # (Auto) Seg Neutrophils % Seg Neuts % (Manual) Lymphocytes % (Manual) Seg Neutrophils # Seg Neutrophils # Man Lymphocytes # (Manual) Monocytes % (Manual) Eosinophils % (Manual) Monocytes # (Manual) Eosinophils # (Manual) D-Dimer Heparin Anti-Xa Level ABG pH POC ABG pCO2 POC ABG pO2 ABG pO2 ABG HCO3 ABG O2 Saturation ABG Base Excess ABG Hemoglobin ABG Oxyhemoglobin VBG pH ABG Sodium ABG Potassium ABG Glucose Oxyhemoglobin Sodium Potassium Chloride Carbon Dioxide BUN 44 H Creatinine Glucose 115 H POC Glucose 171 H 167 H Lactic Acid Calcium Ferritin AST Alkaline Phosphatase Magnesium Lactate Dehydrogenase Total Creatine Kinase CK-MB (CK-2) C-Reactive Protein Total Protein Albumin Troponin T HDL Cholesterol Arterial Blood Glucose Urine WBC (Auto) Urine Creatinine Urine Total Protein Phenytoin Coronavirus (PCR) Crossmatch 06/18/20 06/19/20 06/19/20 23:46 05:48 07:52 WBC RBC Hgb Hct MCHC RDW Lymph % (Auto) [place] % (Auto) Eos % (Auto) Lymph # [place] # Lymph # (Auto) [place] # (Auto) Eos # (Auto) Seg Neutrophils % Seg Neuts % (Manual) Lymphocytes % (Manual) Seg Neutrophils # Seg Neutrophils # Man Lymphocytes # (Manual) Monocytes % (Manual) Eosinophils % (Manual) Monocytes # (Manual) Eosinophils # (Manual) D-Dimer Heparin Anti-Xa Level ABG pH POC ABG pCO2 POC ABG pO2 ABG pO2 ABG HCO3 ABG O2 Saturation ABG Base Excess ABG Hemoglobin ABG Oxyhemoglobin VBG pH ABG Sodium ABG Potassium ABG Glucose Oxyhemoglobin Sodium Potassium Chloride Carbon Dioxide BUN Creatinine Glucose POC Glucose 130 H 207 H 175 H Lactic Acid Calcium Ferritin AST Alkaline Phosphatase Magnesium Lactate Dehydrogenase Total Creatine Kinase CK-MB (CK-2) C-Reactive Protein Total Protein Albumin Troponin T HDL Cholesterol Arterial Blood Glucose Urine WBC (Auto) Urine Creatinine Urine Total Protein Phenytoin Coronavirus (PCR) Crossmatch 06/19/20 06/19/20 06/20/20 11:42 22:54 05:17 WBC RBC Hgb Hct MCHC RDW Lymph % (Auto) [place] % (Auto) Eos % (Auto) Lymph # [place] # Lymph # (Auto) [place] # (Auto) Eos # (Auto) Seg Neutrophils % Seg Neuts % (Manual) Lymphocytes % (Manual) Seg Neutrophils # Seg Neutrophils # Man Lymphocytes # (Manual) Monocytes % (Manual) Eosinophils % (Manual) Monocytes # (Manual) Eosinophils # (Manual) D-Dimer Heparin Anti-Xa Level ABG pH POC ABG pCO2 POC ABG pO2 ABG pO2 ABG HCO3 ABG O2 Saturation ABG Base Excess ABG Hemoglobin ABG Oxyhemoglobin VBG pH ABG Sodium ABG Potassium ABG Glucose Oxyhemoglobin Sodium Potassium Chloride Carbon Dioxide BUN Creatinine Glucose POC Glucose 166 H 135 H 218 H Lactic Acid Calcium Ferritin AST Alkaline Phosphatase Magnesium Lactate Dehydrogenase Total Creatine Kinase CK-MB (CK-2) C-Reactive Protein Total Protein Albumin Troponin T HDL Cholesterol Arterial Blood Glucose Urine WBC (Auto) Urine Creatinine Urine Total Protein Phenytoin Coronavirus (PCR) Crossmatch 06/20/20 06/20/20 06/20/20 12:04 16:25 16:35 WBC RBC Hgb Hct MCHC RDW Lymph % (Auto) [place] % (Auto) Eos % (Auto) Lymph # [place] # Lymph # (Auto) [place] # (Auto) Eos # (Auto) Seg Neutrophils % Seg Neuts % (Manual) Lymphocytes % (Manual) Seg Neutrophils # Seg Neutrophils # Man Lymphocytes # (Manual) Monocytes % (Manual) Eosinophils % (Manual) Monocytes # (Manual) Eosinophils # (Manual) D-Dimer Heparin Anti-Xa Level ABG pH POC ABG pCO2 POC ABG pO2 ABG pO2 59.6 L ABG HCO3 28.7 H ABG O2 Saturation 93.5 L ABG Base Excess 3.4 H ABG Hemoglobin 7.2 L ABG Oxyhemoglobin VBG pH ABG Sodium ABG Potassium ABG Glucose Oxyhemoglobin 91.3 L Sodium Potassium Chloride Carbon Dioxide BUN Creatinine Glucose POC Glucose 194 H 137 H Lactic Acid Calcium Ferritin AST Alkaline Phosphatase Magnesium Lactate Dehydrogenase Total Creatine Kinase CK-MB (CK-2) C-Reactive Protein Total Protein Albumin Troponin T HDL Cholesterol Arterial Blood Glucose Urine WBC (Auto) Urine Creatinine Urine Total Protein Phenytoin Coronavirus (PCR) Crossmatch 06/20/20 06/21/20 06/21/20 23:59 06:25 12:01 WBC RBC Hgb Hct MCHC RDW Lymph % (Auto) [place] % (Auto) Eos % (Auto) Lymph # [place] # Lymph # (Auto) [place] # (Auto) Eos # (Auto) Seg Neutrophils % Seg Neuts % (Manual) Lymphocytes % (Manual) Seg Neutrophils # Seg Neutrophils # Man Lymphocytes # (Manual) Monocytes % (Manual) Eosinophils % (Manual) Monocytes # (Manual) Eosinophils # (Manual) D-Dimer Heparin Anti-Xa Level ABG pH POC ABG pCO2 POC ABG pO2 ABG pO2 ABG HCO3 ABG O2 Saturation ABG Base Excess ABG Hemoglobin ABG Oxyhemoglobin VBG pH ABG Sodium ABG Potassium ABG Glucose Oxyhemoglobin Sodium Potassium Chloride Carbon Dioxide BUN Creatinine Glucose POC Glucose 156 H 177 H 195 H Lactic Acid Calcium Ferritin AST Alkaline Phosphatase Magnesium Lactate Dehydrogenase Total Creatine Kinase CK-MB (CK-2) C-Reactive Protein Total Protein Albumin Troponin T HDL Cholesterol Arterial Blood Glucose Urine WBC (Auto) Urine Creatinine Urine Total Protein Phenytoin Coronavirus (PCR) Crossmatch 06/21/20 06/21/20 06/22/20 17:04 21:51 05:06 WBC RBC Hgb Hct MCHC RDW Lymph % (Auto) [place] % (Auto) Eos % (Auto) Lymph # [place] # Lymph # (Auto) [place] # (Auto) Eos # (Auto) Seg Neutrophils % Seg Neuts % (Manual) Lymphocytes % (Manual) Seg Neutrophils # Seg Neutrophils # Man Lymphocytes # (Manual) Monocytes % (Manual) Eosinophils % (Manual) Monocytes # (Manual) Eosinophils # (Manual) D-Dimer Heparin Anti-Xa Level ABG pH POC ABG pCO2 POC ABG pO2 ABG pO2 ABG HCO3 ABG O2 Saturation ABG Base Excess ABG Hemoglobin ABG Oxyhemoglobin VBG pH ABG Sodium ABG Potassium ABG Glucose Oxyhemoglobin Sodium Potassium Chloride Carbon Dioxide BUN Creatinine Glucose POC Glucose 156 H 154 H 167 H Lactic Acid Calcium Ferritin AST Alkaline Phosphatase Magnesium Lactate Dehydrogenase Total Creatine Kinase CK-MB (CK-2) C-Reactive Protein Total Protein Albumin Troponin T HDL Cholesterol Arterial Blood Glucose Urine WBC (Auto) Urine Creatinine Urine Total Protein Phenytoin Coronavirus (PCR) Crossmatch 06/22/20 06/22/20 06/22/20 11:20 15:27 16:58 WBC RBC Hgb Hct MCHC RDW Lymph % (Auto) [place] % (Auto) Eos % (Auto) Lymph # [place] # Lymph # (Auto) [place] # (Auto) Eos # (Auto) Seg Neutrophils % Seg Neuts % (Manual) Lymphocytes % (Manual) Seg Neutrophils # Seg Neutrophils # Man Lymphocytes # (Manual) Monocytes % (Manual) Eosinophils % (Manual) Monocytes # (Manual) Eosinophils # (Manual) D-Dimer Heparin Anti-Xa Level ABG pH 7.206 L POC ABG pCO2 79.9 H POC ABG pO2 ABG pO2 ABG HCO3 ABG O2 Saturation ABG Base Excess ABG Hemoglobin 8.3 L ABG Oxyhemoglobin VBG pH ABG Sodium ABG Potassium ABG Glucose Oxyhemoglobin Sodium Potassium Chloride Carbon Dioxide BUN Creatinine Glucose POC Glucose 181 H 230 H Lactic Acid Calcium Ferritin AST Alkaline Phosphatase Magnesium Lactate Dehydrogenase Total Creatine Kinase CK-MB (CK-2) C-Reactive Protein Total Protein Albumin Troponin T HDL Cholesterol Arterial Blood Glucose Urine WBC (Auto) Urine Creatinine Urine Total Protein Phenytoin Coronavirus (PCR) Crossmatch 06/22/20 06/23/20 06/23/20 22:26 05:49 05:49 WBC RBC 2.58 L Hgb 7.4 L Hct 23.2 L MCHC RDW 17.0 H Lymph % (Auto) [place] % (Auto) 11.2 H Eos % (Auto) Lymph # 1.0 L [place] # Lymph # (Auto) [place] # (Auto) Eos # (Auto) Seg Neutrophils % Seg Neuts % (Manual) Lymphocytes % (Manual) Seg Neutrophils # Seg Neutrophils # Man Lymphocytes # (Manual) Monocytes % (Manual) Eosinophils % (Manual) Monocytes # (Manual) Eosinophils # (Manual) D-Dimer Heparin Anti-Xa Level ABG pH POC ABG pCO2 POC ABG pO2 ABG pO2 ABG HCO3 ABG O2 Saturation ABG Base Excess ABG Hemoglobin ABG Oxyhemoglobin VBG pH ABG Sodium ABG Potassium ABG Glucose Oxyhemoglobin Sodium Potassium Chloride Carbon Dioxide BUN 68 H Creatinine 2.4 H Glucose 198 H POC Glucose 195 H Lactic Acid Calcium Ferritin AST Alkaline Phosphatase Magnesium Lactate Dehydrogenase Total Creatine Kinase CK-MB (CK-2) C-Reactive Protein Total Protein Albumin Troponin T HDL Cholesterol Arterial Blood Glucose Urine WBC (Auto) Urine Creatinine Urine Total Protein Phenytoin Coronavirus (PCR) Crossmatch 06/23/20 06/23/20 06/23/20 05:50 12:29 12:34 WBC RBC Hgb Hct MCHC RDW Lymph % (Auto) [place] % (Auto) Eos % (Auto) Lymph # [place] # Lymph # (Auto) [place] # (Auto) Eos # (Auto) Seg Neutrophils % Seg Neuts % (Manual) Lymphocytes % (Manual) Seg Neutrophils # Seg Neutrophils # Man Lymphocytes # (Manual) Monocytes % (Manual) Eosinophils % (Manual) Monocytes # (Manual) Eosinophils # (Manual) D-Dimer Heparin Anti-Xa Level ABG pH POC ABG pCO2 54.7 H POC ABG pO2 68.8 L ABG pO2 ABG HCO3 ABG O2 Saturation ABG Base Excess ABG Hemoglobin 9.8 L ABG Oxyhemoglobin 92.6 L VBG pH ABG Sodium ABG Potassium ABG Glucose Oxyhemoglobin Sodium Potassium Chloride Carbon Dioxide BUN Creatinine Glucose POC Glucose 202 H 218 H Lactic Acid Calcium Ferritin AST Alkaline Phosphatase Magnesium Lactate Dehydrogenase Total Creatine Kinase CK-MB (CK-2) C-Reactive Protein Total Protein Albumin Troponin T HDL Cholesterol Arterial Blood Glucose Urine WBC (Auto) Urine Creatinine Urine Total Protein Phenytoin Coronavirus (PCR) Crossmatch 06/23/20 06/23/20 06/24/20 16:02 22:22 01:06 WBC RBC Hgb Hct MCHC RDW Lymph % (Auto) [place] % (Auto) Eos % (Auto) Lymph # [place] # Lymph # (Auto) [place] # (Auto) Eos # (Auto) Seg Neutrophils % Seg Neuts % (Manual) Lymphocytes % (Manual) Seg Neutrophils # Seg Neutrophils # Man Lymphocytes # (Manual) Monocytes % (Manual) Eosinophils % (Manual) Monocytes # (Manual) Eosinophils # (Manual) D-Dimer Heparin Anti-Xa Level ABG pH POC ABG pCO2 POC ABG pO2 ABG pO2 ABG HCO3 ABG O2 Saturation ABG Base Excess ABG Hemoglobin ABG Oxyhemoglobin VBG pH ABG Sodium ABG Potassium ABG Glucose Oxyhemoglobin Sodium Potassium Chloride Carbon Dioxide BUN Creatinine Glucose POC Glucose 190 H 166 H 171 H Lactic Acid Calcium Ferritin AST Alkaline Phosphatase Magnesium Lactate Dehydrogenase Total Creatine Kinase CK-MB (CK-2) C-Reactive Protein Total Protein Albumin Troponin T HDL Cholesterol Arterial Blood Glucose Urine WBC (Auto) Urine Creatinine Urine Total Protein Phenytoin Coronavirus (PCR) Crossmatch 06/24/20 06/24/20 06/24/20 04:48 05:35 11:48 WBC RBC Hgb Hct MCHC RDW Lymph % (Auto) [place] % (Auto) Eos % (Auto) Lymph # [place] # Lymph # (Auto) [place] # (Auto) Eos # (Auto) Seg Neutrophils % Seg Neuts % (Manual) Lymphocytes % (Manual) Seg Neutrophils # Seg Neutrophils # Man Lymphocytes # (Manual) Monocytes % (Manual) Eosinophils % (Manual) Monocytes # (Manual) Eosinophils # (Manual) D-Dimer Heparin Anti-Xa Level ABG pH POC ABG pCO2 POC ABG pO2 ABG pO2 ABG HCO3 ABG O2 Saturation ABG Base Excess ABG Hemoglobin ABG Oxyhemoglobin VBG pH ABG Sodium ABG Potassium ABG Glucose Oxyhemoglobin Sodium Potassium Chloride Carbon Dioxide BUN 75 H Creatinine 2.6 H Glucose 179 H POC Glucose 172 H 153 H Lactic Acid Calcium Ferritin AST Alkaline Phosphatase Magnesium Lactate Dehydrogenase Total Creatine Kinase CK-MB (CK-2) C-Reactive Protein Total Protein Albumin Troponin T HDL Cholesterol Arterial Blood Glucose Urine WBC (Auto) Urine Creatinine Urine Total Protein Phenytoin Coronavirus (PCR) Crossmatch 06/24/20 06/24/20 06/25/20 16:38 21:52 12:00 WBC RBC Hgb Hct MCHC RDW Lymph % (Auto) [place] % (Auto) Eos % (Auto) Lymph # [place] # Lymph # (Auto) [place] # (Auto) Eos # (Auto) Seg Neutrophils % Seg Neuts % (Manual) Lymphocytes % (Manual) Seg Neutrophils # Seg Neutrophils # Man Lymphocytes # (Manual) Monocytes % (Manual) Eosinophils % (Manual) Monocytes # (Manual) Eosinophils # (Manual) D-Dimer Heparin Anti-Xa Level ABG pH POC ABG pCO2 POC ABG pO2 ABG pO2 ABG HCO3 ABG O2 Saturation ABG Base Excess ABG Hemoglobin ABG Oxyhemoglobin VBG pH ABG Sodium ABG Potassium ABG Glucose Oxyhemoglobin Sodium Potassium Chloride Carbon Dioxide BUN Creatinine Glucose POC Glucose 123 H 115 H 203 H Lactic Acid Calcium Ferritin AST Alkaline Phosphatase Magnesium Lactate Dehydrogenase Total Creatine Kinase CK-MB (CK-2) C-Reactive Protein Total Protein Albumin Troponin T HDL Cholesterol Arterial Blood Glucose Urine WBC (Auto) Urine Creatinine Urine Total Protein Phenytoin Coronavirus (PCR) Crossmatch 06/25/20 06/25/20 06/25/20 15:43 16:37 23:02 WBC RBC Hgb Hct MCHC RDW Lymph % (Auto) [place] % (Auto) Eos % (Auto) Lymph # [place] # Lymph # (Auto) [place] # (Auto) Eos # (Auto) Seg Neutrophils % Seg Neuts % (Manual) Lymphocytes % (Manual) Seg Neutrophils # Seg Neutrophils # Man Lymphocytes # (Manual) Monocytes % (Manual) Eosinophils % (Manual) Monocytes # (Manual) Eosinophils # (Manual) D-Dimer Heparin Anti-Xa Level ABG pH POC ABG pCO2 POC ABG pO2 ABG pO2 ABG HCO3 ABG O2 Saturation ABG Base Excess ABG Hemoglobin ABG Oxyhemoglobin VBG pH ABG Sodium ABG Potassium ABG Glucose Oxyhemoglobin Sodium Potassium Chloride Carbon Dioxide BUN 71 H Creatinine 1.8 H Glucose 170 H POC Glucose 191 H 126 H Lactic Acid Calcium 8.2 L Ferritin AST Alkaline Phosphatase Magnesium Lactate Dehydrogenase Total Creatine Kinase CK-MB (CK-2) C-Reactive Protein Total Protein Albumin Troponin T HDL Cholesterol Arterial Blood Glucose Urine WBC (Auto) Urine Creatinine Urine Total Protein Phenytoin Coronavirus (PCR) Crossmatch 06/26/20 06/26/20 06/26/20 06:34 06:34 09:27 WBC RBC 2.41 L Hgb 6.9 L Hct 21.5 L MCHC RDW 16.7 H Lymph % (Auto) 10.9 L [place] % (Auto) 9.6 H Eos % (Auto) Lymph # 0.7 L [place] # Lymph # (Auto) [place] # (Auto) Eos # (Auto) Seg Neutrophils % 75.4 H Seg Neuts % (Manual) Lymphocytes % (Manual) Seg Neutrophils # Seg Neutrophils # Man Lymphocytes # (Manual) Monocytes % (Manual) Eosinophils % (Manual) Monocytes # (Manual) Eosinophils # (Manual) D-Dimer Heparin Anti-Xa Level ABG pH POC ABG pCO2 POC ABG pO2 ABG pO2 ABG HCO3 ABG O2 Saturation ABG Base Excess ABG Hemoglobin ABG Oxyhemoglobin VBG pH ABG Sodium ABG Potassium ABG Glucose Oxyhemoglobin Sodium Potassium Chloride Carbon Dioxide BUN 77 H Creatinine 1.9 H Glucose 190 H POC Glucose Lactic Acid Calcium Ferritin AST Alkaline Phosphatase Magnesium Lactate Dehydrogenase Total Creatine Kinase CK-MB (CK-2) C-Reactive Protein Total Protein Albumin Troponin T HDL Cholesterol Arterial Blood Glucose Urine WBC (Auto) Urine Creatinine Urine Total Protein Phenytoin Coronavirus (PCR) Crossmatch See Detail 06/26/20 06/26/20 06/26/20 12:15 16:28 17:28 WBC RBC Hgb Hct MCHC RDW Lymph % (Auto) [place] % (Auto) Eos % (Auto) Lymph # [place] # Lymph # (Auto) [place] # (Auto) Eos # (Auto) Seg Neutrophils % Seg Neuts % (Manual) Lymphocytes % (Manual) Seg Neutrophils # Seg Neutrophils # Man Lymphocytes # (Manual) Monocytes % (Manual) Eosinophils % (Manual) Monocytes # (Manual) Eosinophils # (Manual) D-Dimer Heparin Anti-Xa Level ABG pH POC ABG pCO2 POC ABG pO2 ABG pO2 ABG HCO3 ABG O2 Saturation ABG Base Excess ABG Hemoglobin ABG Oxyhemoglobin VBG pH ABG Sodium ABG Potassium ABG Glucose Oxyhemoglobin Sodium Potassium Chloride Carbon Dioxide BUN Creatinine Glucose POC Glucose 187 H 149 H 189 H Lactic Acid Calcium Ferritin AST Alkaline Phosphatase Magnesium Lactate Dehydrogenase Total Creatine Kinase CK-MB (CK-2) C-Reactive Protein Total Protein Albumin Troponin T HDL Cholesterol Arterial Blood Glucose Urine WBC (Auto) Urine Creatinine Urine Total Protein Phenytoin Coronavirus (PCR) Crossmatch 06/26/20 06/26/20 06/26/20 18:30 18:30 18:30 WBC RBC 2.87 L Hgb 8.2 L Hct 25.9 L MCHC RDW 17.8 H Lymph % (Auto) [place] % (Auto) Eos % (Auto) Lymph # [place] # Lymph # (Auto) [place] # (Auto) Eos # (Auto) Seg Neutrophils % Seg Neuts % (Manual) 83.0 H Lymphocytes % (Manual) 8.0 L Seg Neutrophils # Seg Neutrophils # Man Lymphocytes # (Manual) 0.6 L Monocytes % (Manual) Eosinophils % (Manual) Monocytes # (Manual) Eosinophils # (Manual) D-Dimer Heparin Anti-Xa Level ABG pH POC ABG pCO2 POC ABG pO2 ABG pO2 ABG HCO3 ABG O2 Saturation ABG Base Excess ABG Hemoglobin ABG Oxyhemoglobin VBG pH ABG Sodium ABG Potassium ABG Glucose Oxyhemoglobin Sodium Potassium Chloride Carbon Dioxide BUN 80 H Creatinine 2.1 H Glucose 260 H POC Glucose Lactic Acid 4.30 H* Calcium 8.3 L Ferritin AST Alkaline Phosphatase Magnesium Lactate Dehydrogenase Total Creatine Kinase CK-MB (CK-2) C-Reactive Protein Total Protein Albumin Troponin T HDL Cholesterol Arterial Blood Glucose Urine WBC (Auto) Urine Creatinine Urine Total Protein Phenytoin Coronavirus (PCR) Crossmatch 06/26/20 06/27/20 06/27/20 18:50 01:00 04:29 WBC RBC Hgb Hct MCHC RDW Lymph % (Auto) [place] % (Auto) Eos % (Auto) Lymph # [place] # Lymph # (Auto) [place] # (Auto) Eos # (Auto) Seg Neutrophils % Seg Neuts % (Manual) Lymphocytes % (Manual) Seg Neutrophils # Seg Neutrophils # Man Lymphocytes # (Manual) Monocytes % (Manual) Eosinophils % (Manual) Monocytes # (Manual) Eosinophils # (Manual) D-Dimer Heparin Anti-Xa Level ABG pH 7.296 L POC ABG pCO2 POC ABG pO2 ABG pO2 116.5 H 200.5 H ABG HCO3 28.4 H ABG O2 Saturation 99.3 H ABG Base Excess 3.7 H ABG Hemoglobin 5.6 L ABG Oxyhemoglobin VBG pH ABG Sodium ABG Potassium ABG Glucose Oxyhemoglobin Sodium Potassium Chloride Carbon Dioxide BUN Creatinine Glucose POC Glucose 123 H Lactic Acid Calcium Ferritin AST Alkaline Phosphatase Magnesium Lactate Dehydrogenase Total Creatine Kinase CK-MB (CK-2) C-Reactive Protein Total Protein Albumin Troponin T HDL Cholesterol Arterial Blood Glucose Urine WBC (Auto) Urine Creatinine Urine Total Protein Phenytoin Coronavirus (PCR) Crossmatch 06/27/20 06/27/20 06/27/20 05:00 05:00 05:00 WBC RBC 2.75 L Hgb 7.9 L Hct 24.3 L MCHC RDW 17.1 H Lymph % (Auto) 8.5 L [place] % (Auto) 12.6 H Eos % (Auto) Lymph # 0.7 L [place] # 1.0 H Lymph # (Auto) [place] # (Auto) Eos # (Auto) Seg Neutrophils % 77.5 H Seg Neuts % (Manual) Lymphocytes % (Manual) Seg Neutrophils # Seg Neutrophils # Man Lymphocytes # (Manual) Monocytes % (Manual) Eosinophils % (Manual) Monocytes # (Manual) Eosinophils # (Manual) D-Dimer Heparin Anti-Xa Level ABG pH POC ABG pCO2 POC ABG pO2 ABG pO2 ABG HCO3 ABG O2 Saturation ABG Base Excess ABG Hemoglobin ABG Oxyhemoglobin VBG pH ABG Sodium ABG Potassium ABG Glucose Oxyhemoglobin Sodium Potassium Chloride Carbon Dioxide BUN 80 H Creatinine 2.0 H Glucose 129 H POC Glucose Lactic Acid 0.60 L Calcium 7.9 L Ferritin AST Alkaline Phosphatase Magnesium Lactate Dehydrogenase Total Creatine Kinase CK-MB (CK-2) C-Reactive Protein Total Protein Albumin Troponin T HDL Cholesterol Arterial Blood Glucose Urine WBC (Auto) Urine Creatinine Urine Total Protein Phenytoin Coronavirus (PCR) Crossmatch 06/27/20 06/27/20 06/27/20 05:23 13:46 17:25 WBC RBC Hgb Hct MCHC RDW Lymph % (Auto) [place] % (Auto) Eos % (Auto) Lymph # [place] # Lymph # (Auto) [place] # (Auto) Eos # (Auto) Seg Neutrophils % Seg Neuts % (Manual) Lymphocytes % (Manual) Seg Neutrophils # Seg Neutrophils # Man Lymphocytes # (Manual) Monocytes % (Manual) Eosinophils % (Manual) Monocytes # (Manual) Eosinophils # (Manual) D-Dimer Heparin Anti-Xa Level ABG pH POC ABG pCO2 POC ABG pO2 ABG pO2 ABG HCO3 ABG O2 Saturation ABG Base Excess ABG Hemoglobin ABG Oxyhemoglobin VBG pH ABG Sodium ABG Potassium ABG Glucose Oxyhemoglobin Sodium Potassium Chloride Carbon Dioxide BUN Creatinine Glucose POC Glucose 109 H 158 H 162 H Lactic Acid Calcium Ferritin AST Alkaline Phosphatase Magnesium Lactate Dehydrogenase Total Creatine Kinase CK-MB (CK-2) C-Reactive Protein Total Protein Albumin Troponin T HDL Cholesterol Arterial Blood Glucose Urine WBC (Auto) Urine Creatinine Urine Total Protein Phenytoin Coronavirus (PCR) Crossmatch 06/27/20 06/27/20 06/28/20 18:43 23:46 04:05 WBC RBC Hgb 7.7 L Hct 22.1 L MCHC RDW Lymph % (Auto) [place] % (Auto) Eos % (Auto) Lymph # [place] # Lymph # (Auto) [place] # (Auto) Eos # (Auto) Seg Neutrophils % Seg Neuts % (Manual) Lymphocytes % (Manual) Seg Neutrophils # Seg Neutrophils # Man Lymphocytes # (Manual) Monocytes % (Manual) Eosinophils % (Manual) Monocytes # (Manual) Eosinophils # (Manual) D-Dimer Heparin Anti-Xa Level ABG pH POC ABG pCO2 POC ABG pO2 ABG pO2 102.7 H ABG HCO3 28.7 H ABG O2 Saturation ABG Base Excess 3.7 H ABG Hemoglobin ABG Oxyhemoglobin VBG pH ABG Sodium ABG Potassium ABG Glucose Oxyhemoglobin Sodium Potassium Chloride Carbon Dioxide BUN Creatinine Glucose POC Glucose 142 H Lactic Acid Calcium Ferritin AST Alkaline Phosphatase Magnesium Lactate Dehydrogenase Total Creatine Kinase CK-MB (CK-2) C-Reactive Protein Total Protein Albumin Troponin T HDL Cholesterol Arterial Blood Glucose Urine WBC (Auto) Urine Creatinine Urine Total Protein Phenytoin Coronavirus (PCR) Crossmatch 06/28/20 06/28/20 06/28/20 09:47 09:47 12:02 WBC RBC 2.53 L Hgb 7.4 L Hct 22.2 L MCHC RDW 16.8 H Lymph % (Auto) [place] % (Auto) 13.5 H Eos % (Auto) Lymph # 1.1 L [place] # 1.0 H Lymph # (Auto) [place] # (Auto) Eos # (Auto) Seg Neutrophils % Seg Neuts % (Manual) Lymphocytes % (Manual) Seg Neutrophils # Seg Neutrophils # Man Lymphocytes # (Manual) Monocytes % (Manual) Eosinophils % (Manual) Monocytes # (Manual) Eosinophils # (Manual) D-Dimer Heparin Anti-Xa Level ABG pH POC ABG pCO2 POC ABG pO2 ABG pO2 ABG HCO3 ABG O2 Saturation ABG Base Excess ABG Hemoglobin ABG Oxyhemoglobin VBG pH ABG Sodium ABG Potassium ABG Glucose Oxyhemoglobin Sodium Potassium Chloride Carbon Dioxide BUN 80 H Creatinine 1.5 H Glucose 139 H POC Glucose 169 H Lactic Acid Calcium 7.9 L Ferritin AST Alkaline Phosphatase Magnesium Lactate Dehydrogenase Total Creatine Kinase CK-MB (CK-2) C-Reactive Protein Total Protein 5.0 L Albumin 2.1 L Troponin T HDL Cholesterol Arterial Blood Glucose Urine WBC (Auto) Urine Creatinine Urine Total Protein Phenytoin Coronavirus (PCR) Crossmatch 06/28/20 06/28/20 06/28/20 12:30 12:30 17:24 WBC RBC 2.38 L Hgb 7.3 L Hct 20.9 L MCHC 35 H RDW 16.7 H Lymph % (Auto) [place] % (Auto) Eos % (Auto) Lymph # [place] # Lymph # (Auto) [place] # (Auto) Eos # (Auto) Seg Neutrophils % Seg Neuts % (Manual) Lymphocytes % (Manual) Seg Neutrophils # Seg Neutrophils # Man Lymphocytes # (Manual) Monocytes % (Manual) Eosinophils % (Manual) Monocytes # (Manual) Eosinophils # (Manual) D-Dimer Heparin Anti-Xa Level ABG pH POC ABG pCO2 POC ABG pO2 ABG pO2 ABG HCO3 ABG O2 Saturation ABG Base Excess ABG Hemoglobin ABG Oxyhemoglobin VBG pH ABG Sodium ABG Potassium ABG Glucose Oxyhemoglobin Sodium Potassium Chloride Carbon Dioxide BUN 74 H Creatinine 1.5 H Glucose 143 H POC Glucose 173 H Lactic Acid Calcium 7.5 L Ferritin AST Alkaline Phosphatase Magnesium Lactate Dehydrogenase Total Creatine Kinase CK-MB (CK-2) C-Reactive Protein Total Protein Albumin Troponin T HDL Cholesterol Arterial Blood Glucose Urine WBC (Auto) Urine Creatinine Urine Total Protein Phenytoin Coronavirus (PCR) Crossmatch 06/29/20 06/29/20 06/29/20 00:02 03:54 04:38 WBC RBC 2.55 L Hgb 7.3 L Hct 22.4 L MCHC RDW 16.4 H Lymph % (Auto) 13.3 L [place] % (Auto) 12.5 H Eos % (Auto) Lymph # 1.1 L [place] # 1.0 H Lymph # (Auto) [place] # (Auto) Eos # (Auto) Seg Neutrophils % Seg Neuts % (Manual) Lymphocytes % (Manual) Seg Neutrophils # Seg Neutrophils # Man Lymphocytes # (Manual) Monocytes % (Manual) Eosinophils % (Manual) Monocytes # (Manual) Eosinophils # (Manual) D-Dimer Heparin Anti-Xa Level ABG pH POC ABG pCO2 POC ABG pO2 ABG pO2 ABG HCO3 26.9 H ABG O2 Saturation ABG Base Excess ABG Hemoglobin 6.9 L ABG Oxyhemoglobin VBG pH ABG Sodium ABG Potassium ABG Glucose Oxyhemoglobin Sodium Potassium Chloride Carbon Dioxide BUN Creatinine Glucose POC Glucose 142 H Lactic Acid Calcium Ferritin AST Alkaline Phosphatase Magnesium Lactate Dehydrogenase Total Creatine Kinase CK-MB (CK-2) C-Reactive Protein Total Protein Albumin Troponin T HDL Cholesterol Arterial Blood Glucose Urine WBC (Auto) Urine Creatinine Urine Total Protein Phenytoin Coronavirus (PCR) Crossmatch 06/29/20 06/29/20 06/29/20 04:38 05:38 12:25 WBC RBC Hgb Hct MCHC RDW Lymph % (Auto) [place] % (Auto) Eos % (Auto) Lymph # [place] # Lymph # (Auto) [place] # (Auto) Eos # (Auto) Seg Neutrophils % Seg Neuts % (Manual) Lymphocytes % (Manual) Seg Neutrophils # Seg Neutrophils # Man Lymphocytes # (Manual) Monocytes % (Manual) Eosinophils % (Manual) Monocytes # (Manual) Eosinophils # (Manual) D-Dimer Heparin Anti-Xa Level ABG pH POC ABG pCO2 POC ABG pO2 ABG pO2 ABG HCO3 ABG O2 Saturation ABG Base Excess ABG Hemoglobin ABG Oxyhemoglobin VBG pH ABG Sodium ABG Potassium ABG Glucose Oxyhemoglobin Sodium Potassium Chloride 107.8 H Carbon Dioxide BUN 72 H Creatinine 1.4 H Glucose 127 H POC Glucose 122 H 138 H Lactic Acid Calcium 7.4 L Ferritin AST Alkaline Phosphatase Magnesium Lactate Dehydrogenase Total Creatine Kinase CK-MB (CK-2) C-Reactive Protein Total Protein Albumin Troponin T HDL Cholesterol Arterial Blood Glucose Urine WBC (Auto) Urine Creatinine Urine Total Protein Phenytoin Coronavirus (PCR) Crossmatch 06/29/20 06/29/20 06/29/20 14:45 14:45 14:45 WBC RBC Hgb Hct MCHC RDW Lymph % (Auto) [place] % (Auto) Eos % (Auto) Lymph # [place] # Lymph # (Auto) [place] # (Auto) Eos # (Auto) Seg Neutrophils % Seg Neuts % (Manual) Lymphocytes % (Manual) Seg Neutrophils # Seg Neutrophils # Man Lymphocytes # (Manual) Monocytes % (Manual) Eosinophils % (Manual) Monocytes # (Manual) Eosinophils # (Manual) D-Dimer 2310.15 H Heparin Anti-Xa Level ABG pH POC ABG pCO2 POC ABG pO2 ABG pO2 ABG HCO3 ABG O2 Saturation ABG Base Excess ABG Hemoglobin ABG Oxyhemoglobin VBG pH ABG Sodium ABG Potassium ABG Glucose Oxyhemoglobin Sodium Potassium Chloride Carbon Dioxide BUN Creatinine Glucose POC Glucose Lactic Acid Calcium Ferritin 223.6 H AST Alkaline Phosphatase Magnesium Lactate Dehydrogenase 367 H Total Creatine Kinase CK-MB (CK-2) C-Reactive Protein 3.60 H Total Protein Albumin Troponin T HDL Cholesterol Arterial Blood Glucose Urine WBC (Auto) Urine Creatinine Urine Total Protein Phenytoin Coronavirus (PCR) Crossmatch 06/29/20 06/29/20 06/29/20 18:27 23:35 Unknown WBC RBC Hgb Hct MCHC RDW Lymph % (Auto) [place] % (Auto) Eos % (Auto) Lymph # [place] # Lymph # (Auto) [place] # (Auto) Eos # (Auto) Seg Neutrophils % Seg Neuts % (Manual) Lymphocytes % (Manual) Seg Neutrophils # Seg Neutrophils # Man Lymphocytes # (Manual) Monocytes % (Manual) Eosinophils % (Manual) Monocytes # (Manual) Eosinophils # (Manual) D-Dimer Heparin Anti-Xa Level ABG pH POC ABG pCO2 POC ABG pO2 ABG pO2 ABG HCO3 ABG O2 Saturation ABG Base Excess ABG Hemoglobin ABG Oxyhemoglobin VBG pH ABG Sodium ABG Potassium ABG Glucose Oxyhemoglobin Sodium Potassium Chloride Carbon Dioxide BUN Creatinine Glucose POC Glucose 112 H 140 H Lactic Acid Calcium Ferritin AST Alkaline Phosphatase Magnesium Lactate Dehydrogenase Total Creatine Kinase CK-MB (CK-2) C-Reactive Protein Total Protein Albumin Troponin T HDL Cholesterol Arterial Blood Glucose Urine WBC (Auto) Urine Creatinine Urine Total Protein Phenytoin Coronavirus (PCR) Positive A Crossmatch 06/30/20 06/30/20 06/30/20 04:10 04:10 06:09 WBC RBC 2.44 L Hgb 7.1 L Hct 21.5 L MCHC RDW 16.6 H Lymph % (Auto) 11.0 L [place] % (Auto) 10.8 H Eos % (Auto) Lymph # 0.9 L [place] # 0.9 H Lymph # (Auto) [place] # (Auto) Eos # (Auto) Seg Neutrophils % 73.7 H Seg Neuts % (Manual) Lymphocytes % (Manual) Seg Neutrophils # Seg Neutrophils # Man Lymphocytes # (Manual) Monocytes % (Manual) Eosinophils % (Manual) Monocytes # (Manual) Eosinophils # (Manual) D-Dimer Heparin Anti-Xa Level ABG pH POC ABG pCO2 POC ABG pO2 ABG pO2 ABG HCO3 ABG O2 Saturation ABG Base Excess ABG Hemoglobin ABG Oxyhemoglobin VBG pH ABG Sodium ABG Potassium ABG Glucose Oxyhemoglobin Sodium Potassium Chloride 109.1 H Carbon Dioxide BUN 74 H Creatinine 1.3 H Glucose 191 H POC Glucose 187 H Lactic Acid Calcium 7.8 L Ferritin AST Alkaline Phosphatase Magnesium Lactate Dehydrogenase Total Creatine Kinase CK-MB (CK-2) C-Reactive Protein Total Protein Albumin Troponin T HDL Cholesterol Arterial Blood Glucose Urine WBC (Auto) Urine Creatinine Urine Total Protein Phenytoin Coronavirus (PCR) Crossmatch 06/30/20 06/30/20 06/30/20 12:04 17:43 23:41 WBC RBC Hgb Hct MCHC RDW Lymph % (Auto) [place] % (Auto) Eos % (Auto) Lymph # [place] # Lymph # (Auto) [place] # (Auto) Eos # (Auto) Seg Neutrophils % Seg Neuts % (Manual) Lymphocytes % (Manual) Seg Neutrophils # Seg Neutrophils # Man Lymphocytes # (Manual) Monocytes % (Manual) Eosinophils % (Manual) Monocytes # (Manual) Eosinophils # (Manual) D-Dimer Heparin Anti-Xa Level ABG pH POC ABG pCO2 POC ABG pO2 ABG pO2 ABG HCO3 ABG O2 Saturation ABG Base Excess ABG Hemoglobin ABG Oxyhemoglobin VBG pH ABG Sodium ABG Potassium ABG Glucose Oxyhemoglobin Sodium Potassium Chloride Carbon Dioxide BUN Creatinine Glucose POC Glucose 112 H 177 H 143 H Lactic Acid Calcium Ferritin AST Alkaline Phosphatase Magnesium Lactate Dehydrogenase Total Creatine Kinase CK-MB (CK-2) C-Reactive Protein Total Protein Albumin Troponin T HDL Cholesterol Arterial Blood Glucose Urine WBC (Auto) Urine Creatinine Urine Total Protein Phenytoin Coronavirus (PCR) Crossmatch 07/01/20 07/01/20 07/01/20 05:02 05:52 06:01 WBC 12.6 H RBC 2.95 L Hgb 8.2 L Hct 26.0 L MCHC RDW 16.9 H Lymph % (Auto) [place] % (Auto) Eos % (Auto) Lymph # [place] # Lymph # (Auto) [place] # (Auto) Eos # (Auto) Seg Neutrophils % Seg Neuts % (Manual) Lymphocytes % (Manual) Seg Neutrophils # Seg Neutrophils # Man 8.6 H Lymphocytes # (Manual) Monocytes % (Manual) Eosinophils % (Manual) 5.0 H Monocytes # (Manual) Eosinophils # (Manual) 0.6 H D-Dimer Heparin Anti-Xa Level ABG pH POC ABG pCO2 POC ABG pO2 ABG pO2 ABG HCO3 ABG O2 Saturation ABG Base Excess ABG Hemoglobin 8.2 L ABG Oxyhemoglobin VBG pH ABG Sodium ABG Potassium ABG Glucose Oxyhemoglobin Sodium Potassium Chloride Carbon Dioxide BUN Creatinine Glucose POC Glucose 129 H Lactic Acid Calcium Ferritin AST Alkaline Phosphatase Magnesium Lactate Dehydrogenase Total Creatine Kinase CK-MB (CK-2) C-Reactive Protein Total Protein Albumin Troponin T HDL Cholesterol Arterial Blood Glucose Urine WBC (Auto) Urine Creatinine Urine Total Protein Phenytoin Coronavirus (PCR) Crossmatch 07/01/20 07/01/20 07/01/20 06:01 06:01 06:08 WBC RBC Hgb Hct MCHC RDW Lymph % (Auto) [place] % (Auto) Eos % (Auto) Lymph # [place] # Lymph # (Auto) [place] # (Auto) Eos # (Auto) Seg Neutrophils % Seg Neuts % (Manual) Lymphocytes % (Manual) Seg Neutrophils # Seg Neutrophils # Man Lymphocytes # (Manual) Monocytes % (Manual) Eosinophils % (Manual) Monocytes # (Manual) Eosinophils # (Manual) D-Dimer Heparin Anti-Xa Level ABG pH POC ABG pCO2 POC ABG pO2 ABG pO2 ABG HCO3 ABG O2 Saturation ABG Base Excess ABG Hemoglobin ABG Oxyhemoglobin VBG pH ABG Sodium ABG Potassium ABG Glucose Oxyhemoglobin Sodium 147 H Potassium Chloride 108.0 H Carbon Dioxide BUN 71 H Creatinine 1.3 H Glucose 193 H POC Glucose 192 H Lactic Acid Calcium 8.1 L Ferritin AST Alkaline Phosphatase Magnesium Lactate Dehydrogenase Total Creatine Kinase 300 H CK-MB (CK-2) C-Reactive Protein Total Protein Albumin Troponin T 0.067 H HDL Cholesterol 61 H Arterial Blood Glucose Urine WBC (Auto) Urine Creatinine Urine Total Protein Phenytoin Coronavirus (PCR) Crossmatch 07/01/20 07/01/20 07/02/20 12:23 17:40 00:18 WBC RBC Hgb Hct MCHC RDW Lymph % (Auto) [place] % (Auto) Eos % (Auto) Lymph # [place] # Lymph # (Auto) [place] # (Auto) Eos # (Auto) Seg Neutrophils % Seg Neuts % (Manual) Lymphocytes % (Manual) Seg Neutrophils # Seg Neutrophils # Man Lymphocytes # (Manual) Monocytes % (Manual) Eosinophils % (Manual) Monocytes # (Manual) Eosinophils # (Manual) D-Dimer Heparin Anti-Xa Level ABG pH POC ABG pCO2 POC ABG pO2 ABG pO2 ABG HCO3 ABG O2 Saturation ABG Base Excess ABG Hemoglobin ABG Oxyhemoglobin VBG pH ABG Sodium ABG Potassium ABG Glucose Oxyhemoglobin Sodium Potassium Chloride Carbon Dioxide BUN Creatinine Glucose POC Glucose 111 H 135 H 145 H Lactic Acid Calcium Ferritin AST Alkaline Phosphatase Magnesium Lactate Dehydrogenase Total Creatine Kinase CK-MB (CK-2) C-Reactive Protein Total Protein Albumin Troponin T HDL Cholesterol Arterial Blood Glucose Urine WBC (Auto) Urine Creatinine Urine Total Protein Phenytoin Coronavirus (PCR) Crossmatch 07/02/20 07/02/20 07/02/20 04:11 04:23 05:54 WBC RBC Hgb Hct MCHC RDW Lymph % (Auto) [place] % (Auto) Eos % (Auto) Lymph # [place] # Lymph # (Auto) [place] # (Auto) Eos # (Auto) Seg Neutrophils % Seg Neuts % (Manual) Lymphocytes % (Manual) Seg Neutrophils # Seg Neutrophils # Man Lymphocytes # (Manual) Monocytes % (Manual) Eosinophils % (Manual) Monocytes # (Manual) Eosinophils # (Manual) D-Dimer Heparin Anti-Xa Level ABG pH POC ABG pCO2 POC ABG pO2 ABG pO2 ABG HCO3 ABG O2 Saturation ABG Base Excess ABG Hemoglobin 5.4 L ABG Oxyhemoglobin VBG pH ABG Sodium ABG Potassium ABG Glucose Oxyhemoglobin Sodium Potassium Chloride 108.6 H Carbon Dioxide BUN 72 H Creatinine Glucose 112 H POC Glucose 137 H Lactic Acid Calcium 7.8 L Ferritin AST Alkaline Phosphatase Magnesium Lactate Dehydrogenase Total Creatine Kinase CK-MB (CK-2) C-Reactive Protein Total Protein Albumin Troponin T HDL Cholesterol Arterial Blood Glucose Urine WBC (Auto) Urine Creatinine Urine Total Protein Phenytoin Coronavirus (PCR) Crossmatch 07/02/20 07/02/20 07/02/20 11:38 18:04 23:59 WBC RBC Hgb Hct MCHC RDW Lymph % (Auto) [place] % (Auto) Eos % (Auto) Lymph # [place] # Lymph # (Auto) [place] # (Auto) Eos # (Auto) Seg Neutrophils % Seg Neuts % (Manual) Lymphocytes % (Manual) Seg Neutrophils # Seg Neutrophils # Man Lymphocytes # (Manual) Monocytes % (Manual) Eosinophils % (Manual) Monocytes # (Manual) Eosinophils # (Manual) D-Dimer Heparin Anti-Xa Level ABG pH POC ABG pCO2 POC ABG pO2 ABG pO2 ABG HCO3 ABG O2 Saturation ABG Base Excess ABG Hemoglobin ABG Oxyhemoglobin VBG pH ABG Sodium ABG Potassium ABG Glucose Oxyhemoglobin Sodium Potassium Chloride Carbon Dioxide BUN Creatinine Glucose POC Glucose 128 H 135 H 156 H Lactic Acid Calcium Ferritin AST Alkaline Phosphatase Magnesium Lactate Dehydrogenase Total Creatine Kinase CK-MB (CK-2) C-Reactive Protein Total Protein Albumin Troponin T HDL Cholesterol Arterial Blood Glucose Urine WBC (Auto) Urine Creatinine Urine Total Protein Phenytoin Coronavirus (PCR) Crossmatch 07/03/20 07/03/20 07/03/20 03:49 06:00 11:31 WBC RBC Hgb Hct MCHC RDW Lymph % (Auto) [place] % (Auto) Eos % (Auto) Lymph # [place] # Lymph # (Auto) [place] # (Auto) Eos # (Auto) Seg Neutrophils % Seg Neuts % (Manual) Lymphocytes % (Manual) Seg Neutrophils # Seg Neutrophils # Man Lymphocytes # (Manual) Monocytes % (Manual) Eosinophils % (Manual) Monocytes # (Manual) Eosinophils # (Manual) D-Dimer Heparin Anti-Xa Level ABG pH POC ABG pCO2 POC ABG pO2 ABG pO2 121.0 H ABG HCO3 ABG O2 Saturation ABG Base Excess ABG Hemoglobin 8.5 L ABG Oxyhemoglobin VBG pH ABG Sodium ABG Potassium ABG Glucose Oxyhemoglobin Sodium Potassium Chloride Carbon Dioxide BUN Creatinine Glucose POC Glucose 135 H 141 H Lactic Acid Calcium Ferritin AST Alkaline Phosphatase Magnesium Lactate Dehydrogenase Total Creatine Kinase CK-MB (CK-2) C-Reactive Protein Total Protein Albumin Troponin T HDL Cholesterol Arterial Blood Glucose Urine WBC (Auto) Urine Creatinine Urine Total Protein Phenytoin Coronavirus (PCR) Crossmatch 07/03/20 07/03/20 07/03/20 16:00 16:07 17:40 WBC RBC Hgb Hct MCHC RDW Lymph % (Auto) [place] % (Auto) Eos % (Auto) Lymph # [place] # Lymph # (Auto) [place] # (Auto) Eos # (Auto) Seg Neutrophils % Seg Neuts % (Manual) Lymphocytes % (Manual) Seg Neutrophils # Seg Neutrophils # Man Lymphocytes # (Manual) Monocytes % (Manual) Eosinophils % (Manual) Monocytes # (Manual) Eosinophils # (Manual) D-Dimer Heparin Anti-Xa Level ABG pH 7.271 L POC ABG pCO2 POC ABG pO2 ABG pO2 126.9 H ABG HCO3 ABG O2 Saturation ABG Base Excess ABG Hemoglobin 8.2 L 8.1 L ABG Oxyhemoglobin VBG pH ABG Sodium 130.3 L ABG Potassium 4.9 H ABG Glucose 163 H Oxyhemoglobin Sodium Potassium Chloride Carbon Dioxide BUN Creatinine Glucose POC Glucose 120 H Lactic Acid Calcium Ferritin AST Alkaline Phosphatase Magnesium Lactate Dehydrogenase Total Creatine Kinase CK-MB (CK-2) C-Reactive Protein Total Protein Albumin Troponin T HDL Cholesterol Arterial Blood Glucose 163 H Urine WBC (Auto) Urine Creatinine Urine Total Protein Phenytoin Coronavirus (PCR) Crossmatch 07/04/20 07/04/20 07/04/20 05:49 11:54 18:00 WBC RBC Hgb Hct MCHC RDW Lymph % (Auto) [place] % (Auto) Eos % (Auto) Lymph # [place] # Lymph # (Auto) [place] # (Auto) Eos # (Auto) Seg Neutrophils % Seg Neuts % (Manual) Lymphocytes % (Manual) Seg Neutrophils # Seg Neutrophils # Man Lymphocytes # (Manual) Monocytes % (Manual) Eosinophils % (Manual) Monocytes # (Manual) Eosinophils # (Manual) D-Dimer Heparin Anti-Xa Level ABG pH POC ABG pCO2 POC ABG pO2 ABG pO2 ABG HCO3 ABG O2 Saturation ABG Base Excess ABG Hemoglobin ABG Oxyhemoglobin VBG pH ABG Sodium ABG Potassium ABG Glucose Oxyhemoglobin Sodium Potassium Chloride Carbon Dioxide BUN Creatinine Glucose POC Glucose 128 H 168 H 133 H Lactic Acid Calcium Ferritin AST Alkaline Phosphatase Magnesium Lactate Dehydrogenase Total Creatine Kinase CK-MB (CK-2) C-Reactive Protein Total Protein Albumin Troponin T HDL Cholesterol Arterial Blood Glucose Urine WBC (Auto) Urine Creatinine Urine Total Protein Phenytoin Coronavirus (PCR) Crossmatch 07/05/20 07/05/20 07/05/20 00:07 01:12 02:30 WBC RBC 2.35 L Hgb 6.9 L Hct 21.1 L MCHC RDW 16.8 H Lymph % (Auto) [place] % (Auto) Eos % (Auto) Lymph # [place] # Lymph # (Auto) [place] # (Auto) Eos # (Auto) Seg Neutrophils % Seg Neuts % (Manual) 74.0 H Lymphocytes % (Manual) 12.0 L Seg Neutrophils # Seg Neutrophils # Man 8.0 H Lymphocytes # (Manual) Monocytes % (Manual) 9.0 H Eosinophils % (Manual) Monocytes # (Manual) 1.0 H Eosinophils # (Manual) D-Dimer Heparin Anti-Xa Level ABG pH POC ABG pCO2 POC ABG pO2 ABG pO2 ABG HCO3 ABG O2 Saturation ABG Base Excess ABG Hemoglobin ABG Oxyhemoglobin VBG pH ABG Sodium ABG Potassium ABG Glucose Oxyhemoglobin Sodium Potassium Chloride Carbon Dioxide BUN Creatinine Glucose POC Glucose 121 H Lactic Acid Calcium Ferritin AST Alkaline Phosphatase Magnesium Lactate Dehydrogenase Total Creatine Kinase CK-MB (CK-2) C-Reactive Protein Total Protein Albumin Troponin T HDL Cholesterol Arterial Blood Glucose Urine WBC (Auto) Urine Creatinine Urine Total Protein Phenytoin Coronavirus (PCR) Crossmatch See Detail 07/05/20 07/05/20 07/05/20 12:09 13:05 18:04 WBC RBC Hgb Hct MCHC RDW Lymph % (Auto) [place] % (Auto) Eos % (Auto) Lymph # [place] # Lymph # (Auto) [place] # (Auto) Eos # (Auto) Seg Neutrophils % Seg Neuts % (Manual) Lymphocytes % (Manual) Seg Neutrophils # Seg Neutrophils # Man Lymphocytes # (Manual) Monocytes % (Manual) Eosinophils % (Manual) Monocytes # (Manual) Eosinophils # (Manual) D-Dimer Heparin Anti-Xa Level ABG pH 7.32 L POC ABG pCO2 POC ABG pO2 ABG pO2 78.3 L ABG HCO3 ABG O2 Saturation ABG Base Excess -2.6 L ABG Hemoglobin 7.3 L ABG Oxyhemoglobin VBG pH ABG Sodium ABG Potassium ABG Glucose Oxyhemoglobin Sodium Potassium Chloride Carbon Dioxide BUN Creatinine Glucose POC Glucose 132 H 160 H Lactic Acid Calcium Ferritin AST Alkaline Phosphatase Magnesium Lactate Dehydrogenase Total Creatine Kinase CK-MB (CK-2) C-Reactive Protein Total Protein Albumin Troponin T HDL Cholesterol Arterial Blood Glucose Urine WBC (Auto) Urine Creatinine Urine Total Protein Phenytoin Coronavirus (PCR) Crossmatch 07/05/20 07/05/20 07/05/20 23:13 23:13 23:43 WBC RBC 2.57 L Hgb 7.7 L Hct 23.0 L MCHC RDW 16.9 H Lymph % (Auto) [place] % (Auto) Eos % (Auto) Lymph # [place] # Lymph # (Auto) [place] # (Auto) Eos # (Auto) Seg Neutrophils % Seg Neuts % (Manual) Lymphocytes % (Manual) Seg Neutrophils # Seg Neutrophils # Man Lymphocytes # (Manual) Monocytes % (Manual) Eosinophils % (Manual) Monocytes # (Manual) Eosinophils # (Manual) D-Dimer Heparin Anti-Xa Level ABG pH POC ABG pCO2 POC ABG pO2 ABG pO2 ABG HCO3 ABG O2 Saturation ABG Base Excess ABG Hemoglobin ABG Oxyhemoglobin VBG pH ABG Sodium ABG Potassium ABG Glucose Oxyhemoglobin Sodium Potassium Chloride Carbon Dioxide 20 L BUN 80 H Creatinine 2.4 H D Glucose 124 H POC Glucose 121 H Lactic Acid Calcium 7.6 L Ferritin AST Alkaline Phosphatase Magnesium Lactate Dehydrogenase Total Creatine Kinase CK-MB (CK-2) C-Reactive Protein Total Protein Albumin Troponin T HDL Cholesterol Arterial Blood Glucose Urine WBC (Auto) Urine Creatinine Urine Total Protein Phenytoin Coronavirus (PCR) Crossmatch 07/06/20 07/06/20 07/06/20 13:20 14:48 17:28 WBC RBC Hgb Hct MCHC RDW Lymph % (Auto) [place] % (Auto) Eos % (Auto) Lymph # [place] # Lymph # (Auto) [place] # (Auto) Eos # (Auto) Seg Neutrophils % Seg Neuts % (Manual) Lymphocytes % (Manual) Seg Neutrophils # Seg Neutrophils # Man Lymphocytes # (Manual) Monocytes % (Manual) Eosinophils % (Manual) Monocytes # (Manual) Eosinophils # (Manual) D-Dimer Heparin Anti-Xa Level ABG pH POC ABG pCO2 POC ABG pO2 ABG pO2 ABG HCO3 ABG O2 Saturation ABG Base Excess ABG Hemoglobin ABG Oxyhemoglobin VBG pH ABG Sodium ABG Potassium ABG Glucose Oxyhemoglobin Sodium 136 L Potassium 5.5 H Chloride Carbon Dioxide 19 L BUN 82 H Creatinine 2.5 H Glucose 113 H POC Glucose 133 H Lactic Acid Calcium 7.7 L Ferritin AST Alkaline Phosphatase Magnesium Lactate Dehydrogenase Total Creatine Kinase CK-MB (CK-2) C-Reactive Protein Total Protein Albumin Troponin T HDL Cholesterol Arterial Blood Glucose Urine WBC (Auto) Urine Creatinine 33.3 H Urine Total Protein Phenytoin Coronavirus (PCR) Crossmatch 07/07/20 07/07/20 07/07/20 00:12 04:15 04:15 WBC RBC 2.28 L Hgb 6.8 L Hct 20.7 L MCHC RDW 16.8 H Lymph % (Auto) [place] % (Auto) Eos % (Auto) Lymph # [place] # Lymph # (Auto) [place] # (Auto) Eos # (Auto) Seg Neutrophils % Seg Neuts % (Manual) Lymphocytes % (Manual) 13.0 L Seg Neutrophils # Seg Neutrophils # Man Lymphocytes # (Manual) 1.0 L Monocytes % (Manual) 11.0 H Eosinophils % (Manual) Monocytes # (Manual) 0.9 H Eosinophils # (Manual) D-Dimer Heparin Anti-Xa Level ABG pH POC ABG pCO2 POC ABG pO2 ABG pO2 ABG HCO3 ABG O2 Saturation ABG Base Excess ABG Hemoglobin ABG Oxyhemoglobin VBG pH ABG Sodium ABG Potassium ABG Glucose Oxyhemoglobin Sodium Potassium Chloride Carbon Dioxide BUN Creatinine Glucose POC Glucose 154 H Lactic Acid Calcium Ferritin AST Alkaline Phosphatase Magnesium 2.50 H Lactate Dehydrogenase Total Creatine Kinase CK-MB (CK-2) C-Reactive Protein Total Protein Albumin Troponin T HDL Cholesterol Arterial Blood Glucose Urine WBC (Auto) Urine Creatinine Urine Total Protein Phenytoin Coronavirus (PCR) Crossmatch 07/07/20 07/07/20 07/07/20 05:31 12:31 13:22 WBC RBC Hgb Hct MCHC RDW Lymph % (Auto) [place] % (Auto) Eos % (Auto) Lymph # [place] # Lymph # (Auto) [place] # (Auto) Eos # (Auto) Seg Neutrophils % Seg Neuts % (Manual) Lymphocytes % (Manual) Seg Neutrophils # Seg Neutrophils # Man Lymphocytes # (Manual) Monocytes % (Manual) Eosinophils % (Manual) Monocytes # (Manual) Eosinophils # (Manual) D-Dimer Heparin Anti-Xa Level ABG pH POC ABG pCO2 POC ABG pO2 ABG pO2 ABG HCO3 ABG O2 Saturation ABG Base Excess ABG Hemoglobin ABG Oxyhemoglobin VBG pH ABG Sodium ABG Potassium ABG Glucose Oxyhemoglobin Sodium Potassium 5.6 H Chloride Carbon Dioxide BUN 86 H Creatinine 2.9 H Glucose 127 H POC Glucose 135 H 131 H Lactic Acid Calcium 8.1 L Ferritin AST Alkaline Phosphatase Magnesium Lactate Dehydrogenase Total Creatine Kinase CK-MB (CK-2) C-Reactive Protein Total Protein Albumin Troponin T HDL Cholesterol Arterial Blood Glucose Urine WBC (Auto) Urine Creatinine Urine Total Protein Phenytoin Coronavirus (PCR) Crossmatch 07/07/20 07/07/20 07/08/20 17:55 23:33 04:14 WBC RBC 3.28 L Hgb 9.7 L Hct 28.9 L D MCHC RDW 16.4 H Lymph % (Auto) 10.3 L [place] % (Auto) 10.0 H Eos % (Auto) Lymph # [place] # Lymph # (Auto) 1.1 L [place] # (Auto) 1.1 H Eos # (Auto) Seg Neutrophils % 77.2 H Seg Neuts % (Manual) Lymphocytes % (Manual) Seg Neutrophils # 8.2 H Seg Neutrophils # Man Lymphocytes # (Manual) Monocytes % (Manual) Eosinophils % (Manual) Monocytes # (Manual) Eosinophils # (Manual) D-Dimer Heparin Anti-Xa Level ABG pH POC ABG pCO2 POC ABG pO2 ABG pO2 ABG HCO3 ABG O2 Saturation ABG Base Excess ABG Hemoglobin ABG Oxyhemoglobin VBG pH ABG Sodium ABG Potassium ABG Glucose Oxyhemoglobin Sodium Potassium Chloride Carbon Dioxide BUN Creatinine Glucose POC Glucose 136 H 159 H Lactic Acid Calcium Ferritin AST Alkaline Phosphatase Magnesium Lactate Dehydrogenase Total Creatine Kinase CK-MB (CK-2) C-Reactive Protein Total Protein Albumin Troponin T HDL Cholesterol Arterial Blood Glucose Urine WBC (Auto) Urine Creatinine Urine Total Protein Phenytoin Coronavirus (PCR) Crossmatch 07/08/20 07/08/20 07/08/20 04:14 12:10 18:10 WBC RBC Hgb Hct MCHC RDW Lymph % (Auto) [place] % (Auto) Eos % (Auto) Lymph # [place] # Lymph # (Auto) [place] # (Auto) Eos # (Auto) Seg Neutrophils % Seg Neuts % (Manual) Lymphocytes % (Manual) Seg Neutrophils # Seg Neutrophils # Man Lymphocytes # (Manual) Monocytes % (Manual) Eosinophils % (Manual) Monocytes # (Manual) Eosinophils # (Manual) D-Dimer Heparin Anti-Xa Level ABG pH POC ABG pCO2 POC ABG pO2 ABG pO2 ABG HCO3 ABG O2 Saturation ABG Base Excess ABG Hemoglobin ABG Oxyhemoglobin VBG pH ABG Sodium ABG Potassium ABG Glucose Oxyhemoglobin Sodium 136 L Potassium Chloride Carbon Dioxide BUN 84 H Creatinine 2.8 H Glucose 109 H POC Glucose 108 H 125 H Lactic Acid Calcium 8.1 L Ferritin AST Alkaline Phosphatase Magnesium 2.50 H Lactate Dehydrogenase Total Creatine Kinase CK-MB (CK-2) C-Reactive Protein Total Protein Albumin Troponin T HDL Cholesterol Arterial Blood Glucose Urine WBC (Auto) Urine Creatinine Urine Total Protein Phenytoin Coronavirus (PCR) Crossmatch 07/08/20 07/09/20 07/09/20 23:50 05:39 11:57 WBC RBC Hgb Hct MCHC RDW Lymph % (Auto) [place] % (Auto) Eos % (Auto) Lymph # [place] # Lymph # (Auto) [place] # (Auto) Eos # (Auto) Seg Neutrophils % Seg Neuts % (Manual) Lymphocytes % (Manual) Seg Neutrophils # Seg Neutrophils # Man Lymphocytes # (Manual) Monocytes % (Manual) Eosinophils % (Manual) Monocytes # (Manual) Eosinophils # (Manual) D-Dimer Heparin Anti-Xa Level ABG pH POC ABG pCO2 POC ABG pO2 ABG pO2 ABG HCO3 ABG O2 Saturation ABG Base Excess ABG Hemoglobin ABG Oxyhemoglobin VBG pH ABG Sodium ABG Potassium ABG Glucose Oxyhemoglobin Sodium Potassium Chloride Carbon Dioxide BUN Creatinine Glucose POC Glucose 141 H 121 H 123 H Lactic Acid Calcium Ferritin AST Alkaline Phosphatase Magnesium Lactate Dehydrogenase Total Creatine Kinase CK-MB (CK-2) C-Reactive Protein Total Protein Albumin Troponin T HDL Cholesterol Arterial Blood Glucose Urine WBC (Auto) Urine Creatinine Urine Total Protein Phenytoin Coronavirus (PCR) Crossmatch 07/09/20 07/10/20 07/10/20 17:56 00:29 05:50 WBC RBC Hgb Hct MCHC RDW Lymph % (Auto) [place] % (Auto) Eos % (Auto) Lymph # [place] # Lymph # (Auto) [place] # (Auto) Eos # (Auto) Seg Neutrophils % Seg Neuts % (Manual) Lymphocytes % (Manual) Seg Neutrophils # Seg Neutrophils # Man Lymphocytes # (Manual) Monocytes % (Manual) Eosinophils % (Manual) Monocytes # (Manual) Eosinophils # (Manual) D-Dimer Heparin Anti-Xa Level ABG pH POC ABG pCO2 POC ABG pO2 ABG pO2 ABG HCO3 ABG O2 Saturation ABG Base Excess ABG Hemoglobin ABG Oxyhemoglobin VBG pH ABG Sodium ABG Potassium ABG Glucose Oxyhemoglobin Sodium Potassium Chloride Carbon Dioxide BUN Creatinine Glucose POC Glucose 119 H 122 H 124 H Lactic Acid Calcium Ferritin AST Alkaline Phosphatase Magnesium Lactate Dehydrogenase Total Creatine Kinase CK-MB (CK-2) C-Reactive Protein Total Protein Albumin Troponin T HDL Cholesterol Arterial Blood Glucose Urine WBC (Auto) Urine Creatinine Urine Total Protein Phenytoin Coronavirus (PCR) Crossmatch 07/10/20 07/10/20 07/10/20 10:41 10:41 12:25 WBC RBC 3.11 L Hgb 9.2 L Hct 27.6 L MCHC RDW 16.6 H Lymph % (Auto) [place] % (Auto) Eos % (Auto) Lymph # [place] # Lymph # (Auto) [place] # (Auto) Eos # (Auto) Seg Neutrophils % Seg Neuts % (Manual) 78.0 H Lymphocytes % (Manual) 11.0 L Seg Neutrophils # Seg Neutrophils # Man Lymphocytes # (Manual) 1.0 L Monocytes % (Manual) Eosinophils % (Manual) Monocytes # (Manual) Eosinophils # (Manual) D-Dimer Heparin Anti-Xa Level ABG pH POC ABG pCO2 POC ABG pO2 ABG pO2 ABG HCO3 ABG O2 Saturation ABG Base Excess ABG Hemoglobin ABG Oxyhemoglobin VBG pH ABG Sodium ABG Potassium ABG Glucose Oxyhemoglobin Sodium Potassium Chloride Carbon Dioxide BUN 85 H Creatinine 2.5 H Glucose 133 H POC Glucose 131 H Lactic Acid Calcium Ferritin AST Alkaline Phosphatase 131 H Magnesium Lactate Dehydrogenase Total Creatine Kinase CK-MB (CK-2) C-Reactive Protein Total Protein 5.2 L Albumin 1.6 L Troponin T HDL Cholesterol Arterial Blood Glucose Urine WBC (Auto) Urine Creatinine Urine Total Protein Phenytoin Coronavirus (PCR) Crossmatch 07/10/20 07/11/20 07/11/20 18:10 00:28 05:57 WBC RBC Hgb Hct MCHC RDW Lymph % (Auto) [place] % (Auto) Eos % (Auto) Lymph # [place] # Lymph # (Auto) [place] # (Auto) Eos # (Auto) Seg Neutrophils % Seg Neuts % (Manual) Lymphocytes % (Manual) Seg Neutrophils # Seg Neutrophils # Man Lymphocytes # (Manual) Monocytes % (Manual) Eosinophils % (Manual) Monocytes # (Manual) Eosinophils # (Manual) D-Dimer Heparin Anti-Xa Level ABG pH POC ABG pCO2 POC ABG pO2 ABG pO2 ABG HCO3 ABG O2 Saturation ABG Base Excess ABG Hemoglobin ABG Oxyhemoglobin VBG pH ABG Sodium ABG Potassium ABG Glucose Oxyhemoglobin Sodium Potassium Chloride Carbon Dioxide BUN Creatinine Glucose POC Glucose 134 H 140 H 148 H Lactic Acid Calcium Ferritin AST Alkaline Phosphatase Magnesium Lactate Dehydrogenase Total Creatine Kinase CK-MB (CK-2) C-Reactive Protein Total Protein Albumin Troponin T HDL Cholesterol Arterial Blood Glucose Urine WBC (Auto) Urine Creatinine Urine Total Protein Phenytoin Coronavirus (PCR) Crossmatch 07/11/20 07/11/20 07/11/20 12:14 17:28 23:49 WBC RBC Hgb Hct MCHC RDW Lymph % (Auto) [place] % (Auto) Eos % (Auto) Lymph # [place] # Lymph # (Auto) [place] # (Auto) Eos # (Auto) Seg Neutrophils % Seg Neuts % (Manual) Lymphocytes % (Manual) Seg Neutrophils # Seg Neutrophils # Man Lymphocytes # (Manual) Monocytes % (Manual) Eosinophils % (Manual) Monocytes # (Manual) Eosinophils # (Manual) D-Dimer Heparin Anti-Xa Level ABG pH POC ABG pCO2 POC ABG pO2 ABG pO2 ABG HCO3 ABG O2 Saturation ABG Base Excess ABG Hemoglobin ABG Oxyhemoglobin VBG pH ABG Sodium ABG Potassium ABG Glucose Oxyhemoglobin Sodium Potassium Chloride Carbon Dioxide BUN Creatinine Glucose POC Glucose 147 H 175 H 114 H Lactic Acid Calcium Ferritin AST Alkaline Phosphatase Magnesium Lactate Dehydrogenase Total Creatine Kinase CK-MB (CK-2) C-Reactive Protein Total Protein Albumin Troponin T HDL Cholesterol Arterial Blood Glucose Urine WBC (Auto) Urine Creatinine Urine Total Protein Phenytoin Coronavirus (PCR) Crossmatch 07/12/20 07/12/20 07/12/20 05:14 05:14 05:44 WBC RBC 2.78 L Hgb 8.5 L Hct 25.3 L MCHC RDW 16.7 H Lymph % (Auto) [place] % (Auto) Eos % (Auto) Lymph # [place] # Lymph # (Auto) [place] # (Auto) Eos # (Auto) Seg Neutrophils % Seg Neuts % (Manual) 81.0 H Lymphocytes % (Manual) 6.0 L Seg Neutrophils # Seg Neutrophils # Man Lymphocytes # (Manual) 0.6 L Monocytes % (Manual) 8.0 H Eosinophils % (Manual) Monocytes # (Manual) Eosinophils # (Manual) D-Dimer Heparin Anti-Xa Level ABG pH POC ABG pCO2 POC ABG pO2 ABG pO2 ABG HCO3 ABG O2 Saturation ABG Base Excess ABG Hemoglobin ABG Oxyhemoglobin VBG pH ABG Sodium ABG Potassium ABG Glucose Oxyhemoglobin Sodium Potassium Chloride Carbon Dioxide BUN 79 H Creatinine 2.2 H Glucose 131 H POC Glucose 116 H Lactic Acid Calcium Ferritin AST Alkaline Phosphatase Magnesium Lactate Dehydrogenase Total Creatine Kinase CK-MB (CK-2) C-Reactive Protein Total Protein Albumin Troponin T HDL Cholesterol Arterial Blood Glucose Urine WBC (Auto) Urine Creatinine Urine Total Protein Phenytoin Coronavirus (PCR) Crossmatch 07/12/20 07/12/20 07/13/20 11:32 17:53 00:18 WBC RBC Hgb Hct MCHC RDW Lymph % (Auto) [place] % (Auto) Eos % (Auto) Lymph # [place] # Lymph # (Auto) [place] # (Auto) Eos # (Auto) Seg Neutrophils % Seg Neuts % (Manual) Lymphocytes % (Manual) Seg Neutrophils # Seg Neutrophils # Man Lymphocytes # (Manual) Monocytes % (Manual) Eosinophils % (Manual) Monocytes # (Manual) Eosinophils # (Manual) D-Dimer Heparin Anti-Xa Level ABG pH POC ABG pCO2 POC ABG pO2 ABG pO2 ABG HCO3 ABG O2 Saturation ABG Base Excess ABG Hemoglobin ABG Oxyhemoglobin VBG pH ABG Sodium ABG Potassium ABG Glucose Oxyhemoglobin Sodium Potassium Chloride Carbon Dioxide BUN Creatinine Glucose POC Glucose 132 H 155 H 162 H Lactic Acid Calcium Ferritin AST Alkaline Phosphatase Magnesium Lactate Dehydrogenase Total Creatine Kinase CK-MB (CK-2) C-Reactive Protein Total Protein Albumin Troponin T HDL Cholesterol Arterial Blood Glucose Urine WBC (Auto) Urine Creatinine Urine Total Protein Phenytoin Coronavirus (PCR) Crossmatch 07/13/20 07/13/20 07/13/20 04:53 04:53 06:14 WBC RBC 2.86 L Hgb 8.4 L Hct 25.7 L MCHC RDW 16.8 H Lymph % (Auto) [place] % (Auto) Eos % (Auto) Lymph # [place] # Lymph # (Auto) [place] # (Auto) Eos # (Auto) Seg Neutrophils % Seg Neuts % (Manual) 84.0 H Lymphocytes % (Manual) 7.0 L Seg Neutrophils # Seg Neutrophils # Man Lymphocytes # (Manual) 0.6 L Monocytes % (Manual) Eosinophils % (Manual) Monocytes # (Manual) Eosinophils # (Manual) D-Dimer Heparin Anti-Xa Level ABG pH POC ABG pCO2 POC ABG pO2 ABG pO2 ABG HCO3 ABG O2 Saturation ABG Base Excess ABG Hemoglobin ABG Oxyhemoglobin VBG pH ABG Sodium ABG Potassium ABG Glucose Oxyhemoglobin Sodium 136 L Potassium Chloride Carbon Dioxide BUN 78 H Creatinine 2.0 H Glucose 130 H POC Glucose 141 H Lactic Acid Calcium Ferritin AST Alkaline Phosphatase Magnesium Lactate Dehydrogenase Total Creatine Kinase CK-MB (CK-2) C-Reactive Protein Total Protein Albumin Troponin T HDL Cholesterol Arterial Blood Glucose Urine WBC (Auto) Urine Creatinine Urine Total Protein Phenytoin Coronavirus (PCR) Crossmatch 07/13/20 07/13/20 07/14/20 12:50 18:27 00:22 WBC RBC Hgb Hct MCHC RDW Lymph % (Auto) [place] % (Auto) Eos % (Auto) Lymph # [place] # Lymph # (Auto) [place] # (Auto) Eos # (Auto) Seg Neutrophils % Seg Neuts % (Manual) Lymphocytes % (Manual) Seg Neutrophils # Seg Neutrophils # Man Lymphocytes # (Manual) Monocytes % (Manual) Eosinophils % (Manual) Monocytes # (Manual) Eosinophils # (Manual) D-Dimer Heparin Anti-Xa Level ABG pH POC ABG pCO2 POC ABG pO2 ABG pO2 ABG HCO3 ABG O2 Saturation ABG Base Excess ABG Hemoglobin ABG Oxyhemoglobin VBG pH ABG Sodium ABG Potassium ABG Glucose Oxyhemoglobin Sodium Potassium Chloride Carbon Dioxide BUN Creatinine Glucose POC Glucose 146 H 149 H 157 H Lactic Acid Calcium Ferritin AST Alkaline Phosphatase Magnesium Lactate Dehydrogenase Total Creatine Kinase CK-MB (CK-2) C-Reactive Protein Total Protein Albumin Troponin T HDL Cholesterol Arterial Blood Glucose Urine WBC (Auto) Urine Creatinine Urine Total Protein Phenytoin Coronavirus (PCR) Crossmatch 07/14/20 07/14/20 07/14/20 05:43 08:04 12:12 WBC RBC Hgb Hct MCHC RDW Lymph % (Auto) [place] % (Auto) Eos % (Auto) Lymph # [place] # Lymph # (Auto) [place] # (Auto) Eos # (Auto) Seg Neutrophils % Seg Neuts % (Manual) Lymphocytes % (Manual) Seg Neutrophils # Seg Neutrophils # Man Lymphocytes # (Manual) Monocytes % (Manual) Eosinophils % (Manual) Monocytes # (Manual) Eosinophils # (Manual) D-Dimer Heparin Anti-Xa Level ABG pH POC ABG pCO2 POC ABG pO2 ABG pO2 ABG HCO3 ABG O2 Saturation ABG Base Excess ABG Hemoglobin ABG Oxyhemoglobin VBG pH ABG Sodium ABG Potassium ABG Glucose Oxyhemoglobin Sodium Potassium Chloride Carbon Dioxide BUN Creatinine Glucose POC Glucose 169 H 185 H Lactic Acid Calcium Ferritin AST Alkaline Phosphatase Magnesium Lactate Dehydrogenase Total Creatine Kinase CK-MB (CK-2) C-Reactive Protein Total Protein Albumin Troponin T HDL Cholesterol Arterial Blood Glucose Urine WBC (Auto) Urine Creatinine Urine Total Protein Phenytoin Coronavirus (PCR) Positive A Crossmatch 07/14/20 07/15/20 07/15/20 17:23 00:04 06:06 WBC RBC Hgb Hct MCHC RDW Lymph % (Auto) [place] % (Auto) Eos % (Auto) Lymph # [place] # Lymph # (Auto) [place] # (Auto) Eos # (Auto) Seg Neutrophils % Seg Neuts % (Manual) Lymphocytes % (Manual) Seg Neutrophils # Seg Neutrophils # Man Lymphocytes # (Manual) Monocytes % (Manual) Eosinophils % (Manual) Monocytes # (Manual) Eosinophils # (Manual) D-Dimer Heparin Anti-Xa Level ABG pH POC ABG pCO2 POC ABG pO2 ABG pO2 ABG HCO3 ABG O2 Saturation ABG Base Excess ABG Hemoglobin ABG Oxyhemoglobin VBG pH ABG Sodium ABG Potassium ABG Glucose Oxyhemoglobin Sodium Potassium Chloride Carbon Dioxide BUN Creatinine Glucose POC Glucose 138 H 121 H 140 H Lactic Acid Calcium Ferritin AST Alkaline Phosphatase Magnesium Lactate Dehydrogenase Total Creatine Kinase CK-MB (CK-2) C-Reactive Protein Total Protein Albumin Troponin T HDL Cholesterol Arterial Blood Glucose Urine WBC (Auto) Urine Creatinine Urine Total Protein Phenytoin Coronavirus (PCR) Crossmatch 07/15/20 07/15/20 07/15/20 12:00 17:53 23:53 WBC RBC Hgb Hct MCHC RDW Lymph % (Auto) [place] % (Auto) Eos % (Auto) Lymph # [place] # Lymph # (Auto) [place] # (Auto) Eos # (Auto) Seg Neutrophils % Seg Neuts % (Manual) Lymphocytes % (Manual) Seg Neutrophils # Seg Neutrophils # Man Lymphocytes # (Manual) Monocytes % (Manual) Eosinophils % (Manual) Monocytes # (Manual) Eosinophils # (Manual) D-Dimer Heparin Anti-Xa Level ABG pH POC ABG pCO2 POC ABG pO2 ABG pO2 ABG HCO3 ABG O2 Saturation ABG Base Excess ABG Hemoglobin ABG Oxyhemoglobin VBG pH ABG Sodium ABG Potassium ABG Glucose Oxyhemoglobin Sodium Potassium Chloride Carbon Dioxide BUN Creatinine Glucose POC Glucose 137 H 161 H 156 H Lactic Acid Calcium Ferritin AST Alkaline Phosphatase Magnesium Lactate Dehydrogenase Total Creatine Kinase CK-MB (CK-2) C-Reactive Protein Total Protein Albumin Troponin T HDL Cholesterol Arterial Blood Glucose Urine WBC (Auto) Urine Creatinine Urine Total Protein Phenytoin Coronavirus (PCR) Crossmatch 07/16/20 07/16/20 07/17/20 05:26 17:44 00:07 WBC RBC Hgb Hct MCHC RDW Lymph % (Auto) [place] % (Auto) Eos % (Auto) Lymph # [place] # Lymph # (Auto) [place] # (Auto) Eos # (Auto) Seg Neutrophils % Seg Neuts % (Manual) Lymphocytes % (Manual) Seg Neutrophils # Seg Neutrophils # Man Lymphocytes # (Manual) Monocytes % (Manual) Eosinophils % (Manual) Monocytes # (Manual) Eosinophils # (Manual) D-Dimer Heparin Anti-Xa Level ABG pH POC ABG pCO2 POC ABG pO2 ABG pO2 ABG HCO3 ABG O2 Saturation ABG Base Excess ABG Hemoglobin ABG Oxyhemoglobin VBG pH ABG Sodium ABG Potassium ABG Glucose Oxyhemoglobin Sodium Potassium Chloride Carbon Dioxide BUN Creatinine Glucose POC Glucose 152 H 126 H 189 H Lactic Acid Calcium Ferritin AST Alkaline Phosphatase Magnesium Lactate Dehydrogenase Total Creatine Kinase CK-MB (CK-2) C-Reactive Protein Total Protein Albumin Troponin T HDL Cholesterol Arterial Blood Glucose Urine WBC (Auto) Urine Creatinine Urine Total Protein Phenytoin Coronavirus (PCR) Crossmatch 07/17/20 07/17/20 07/17/20 12:06 18:20 23:25 WBC RBC Hgb Hct MCHC RDW Lymph % (Auto) [place] % (Auto) Eos % (Auto) Lymph # [place] # Lymph # (Auto) [place] # (Auto) Eos # (Auto) Seg Neutrophils % Seg Neuts % (Manual) Lymphocytes % (Manual) Seg Neutrophils # Seg Neutrophils # Man Lymphocytes # (Manual) Monocytes % (Manual) Eosinophils % (Manual) Monocytes # (Manual) Eosinophils # (Manual) D-Dimer Heparin Anti-Xa Level ABG pH POC ABG pCO2 POC ABG pO2 ABG pO2 ABG HCO3 ABG O2 Saturation ABG Base Excess ABG Hemoglobin ABG Oxyhemoglobin VBG pH ABG Sodium ABG Potassium ABG Glucose Oxyhemoglobin Sodium Potassium Chloride Carbon Dioxide BUN Creatinine Glucose POC Glucose 155 H 206 H 161 H Lactic Acid Calcium Ferritin AST Alkaline Phosphatase Magnesium Lactate Dehydrogenase Total Creatine Kinase CK-MB (CK-2) C-Reactive Protein Total Protein Albumin Troponin T HDL Cholesterol Arterial Blood Glucose Urine WBC (Auto) Urine Creatinine Urine Total Protein Phenytoin Coronavirus (PCR) Crossmatch 07/18/20 07/18/20 07/18/20 04:24 05:16 11:53 WBC RBC Hgb Hct MCHC RDW Lymph % (Auto) [place] % (Auto) Eos % (Auto) Lymph # [place] # Lymph # (Auto) [place] # (Auto) Eos # (Auto) Seg Neutrophils % Seg Neuts % (Manual) Lymphocytes % (Manual) Seg Neutrophils # Seg Neutrophils # Man Lymphocytes # (Manual) Monocytes % (Manual) Eosinophils % (Manual) Monocytes # (Manual) Eosinophils # (Manual) D-Dimer Heparin Anti-Xa Level ABG pH POC ABG pCO2 POC ABG pO2 ABG pO2 ABG HCO3 ABG O2 Saturation ABG Base Excess ABG Hemoglobin 8.8 L ABG Oxyhemoglobin VBG pH ABG Sodium 131.6 L ABG Potassium 4.9 H ABG Glucose 131 H Oxyhemoglobin Sodium Potassium Chloride Carbon Dioxide BUN Creatinine Glucose POC Glucose 140 H 176 H Lactic Acid Calcium Ferritin AST Alkaline Phosphatase Magnesium Lactate Dehydrogenase Total Creatine Kinase CK-MB (CK-2) C-Reactive Protein Total Protein Albumin Troponin T HDL Cholesterol Arterial Blood Glucose 131 H Urine WBC (Auto) Urine Creatinine Urine Total Protein Phenytoin Coronavirus (PCR) Crossmatch 07/18/20 07/18/20 07/19/20 18:11 23:51 01:05 WBC RBC 2.76 L Hgb 7.9 L Hct 24.5 L MCHC RDW 17.6 H Lymph % (Auto) 11.6 L [place] % (Auto) 13.1 H Eos % (Auto) Lymph # [place] # Lymph # (Auto) 1.0 L [place] # (Auto) 1.1 H Eos # (Auto) Seg Neutrophils % 70.9 H Seg Neuts % (Manual) Lymphocytes % (Manual) Seg Neutrophils # Seg Neutrophils # Man Lymphocytes # (Manual) Monocytes % (Manual) Eosinophils % (Manual) Monocytes # (Manual) Eosinophils # (Manual) D-Dimer Heparin Anti-Xa Level ABG pH POC ABG pCO2 POC ABG pO2 ABG pO2 ABG HCO3 ABG O2 Saturation ABG Base Excess ABG Hemoglobin ABG Oxyhemoglobin VBG pH ABG Sodium ABG Potassium ABG Glucose Oxyhemoglobin Sodium Potassium Chloride Carbon Dioxide BUN Creatinine Glucose POC Glucose 143 H 159 H Lactic Acid Calcium Ferritin AST Alkaline Phosphatase Magnesium Lactate Dehydrogenase Total Creatine Kinase CK-MB (CK-2) C-Reactive Protein Total Protein Albumin Troponin T HDL Cholesterol Arterial Blood Glucose Urine WBC (Auto) Urine Creatinine Urine Total Protein Phenytoin Coronavirus (PCR) Crossmatch 07/19/20 07/19/20 07/19/20 01:05 05:54 12:46 WBC RBC Hgb Hct MCHC RDW Lymph % (Auto) [place] % (Auto) Eos % (Auto) Lymph # [place] # Lymph # (Auto) [place] # (Auto) Eos # (Auto) Seg Neutrophils % Seg Neuts % (Manual) Lymphocytes % (Manual) Seg Neutrophils # Seg Neutrophils # Man Lymphocytes # (Manual) Monocytes % (Manual) Eosinophils % (Manual) Monocytes # (Manual) Eosinophils # (Manual) D-Dimer Heparin Anti-Xa Level ABG pH POC ABG pCO2 POC ABG pO2 ABG pO2 ABG HCO3 ABG O2 Saturation ABG Base Excess ABG Hemoglobin ABG Oxyhemoglobin VBG pH ABG Sodium ABG Potassium ABG Glucose Oxyhemoglobin Sodium Potassium Chloride Carbon Dioxide BUN 86 H Creatinine 1.7 H Glucose 149 H POC Glucose 176 H 127 H Lactic Acid Calcium Ferritin AST Alkaline Phosphatase Magnesium Lactate Dehydrogenase Total Creatine Kinase CK-MB (CK-2) C-Reactive Protein Total Protein Albumin Troponin T HDL Cholesterol Arterial Blood Glucose Urine WBC (Auto) Urine Creatinine Urine Total Protein Phenytoin Coronavirus (PCR) Crossmatch 07/19/20 07/20/20 07/20/20 17:48 00:34 05:28 WBC RBC Hgb Hct MCHC RDW Lymph % (Auto) [place] % (Auto) Eos % (Auto) Lymph # [place] # Lymph # (Auto) [place] # (Auto) Eos # (Auto) Seg Neutrophils % Seg Neuts % (Manual) Lymphocytes % (Manual) Seg Neutrophils # Seg Neutrophils # Man Lymphocytes # (Manual) Monocytes % (Manual) Eosinophils % (Manual) Monocytes # (Manual) Eosinophils # (Manual) D-Dimer Heparin Anti-Xa Level ABG pH POC ABG pCO2 POC ABG pO2 ABG pO2 ABG HCO3 ABG O2 Saturation ABG Base Excess ABG Hemoglobin ABG Oxyhemoglobin VBG pH ABG Sodium ABG Potassium ABG Glucose Oxyhemoglobin Sodium Potassium Chloride Carbon Dioxide BUN Creatinine Glucose POC Glucose 123 H 147 H 110 H Lactic Acid Calcium Ferritin AST Alkaline Phosphatase Magnesium Lactate Dehydrogenase Total Creatine Kinase CK-MB (CK-2) C-Reactive Protein Total Protein Albumin Troponin T HDL Cholesterol Arterial Blood Glucose Urine WBC (Auto) Urine Creatinine Urine Total Protein Phenytoin Coronavirus (PCR) Crossmatch 07/20/20 07/20/20 07/21/20 12:10 17:00 00:11 WBC RBC Hgb Hct MCHC RDW Lymph % (Auto) [place] % (Auto) Eos % (Auto) Lymph # [place] # Lymph # (Auto) [place] # (Auto) Eos # (Auto) Seg Neutrophils % Seg Neuts % (Manual) Lymphocytes % (Manual) Seg Neutrophils # Seg Neutrophils # Man Lymphocytes # (Manual) Monocytes % (Manual) Eosinophils % (Manual) Monocytes # (Manual) Eosinophils # (Manual) D-Dimer Heparin Anti-Xa Level ABG pH POC ABG pCO2 POC ABG pO2 ABG pO2 ABG HCO3 ABG O2 Saturation ABG Base Excess ABG Hemoglobin ABG Oxyhemoglobin VBG pH ABG Sodium ABG Potassium ABG Glucose Oxyhemoglobin Sodium Potassium Chloride Carbon Dioxide BUN Creatinine Glucose POC Glucose 149 H 173 H 128 H Lactic Acid Calcium Ferritin AST Alkaline Phosphatase Magnesium Lactate Dehydrogenase Total Creatine Kinase CK-MB (CK-2) C-Reactive Protein Total Protein Albumin Troponin T HDL Cholesterol Arterial Blood Glucose Urine WBC (Auto) Urine Creatinine Urine Total Protein Phenytoin Coronavirus (PCR) Crossmatch 07/21/20 07/21/20 07/21/20 05:30 12:21 18:17 WBC RBC Hgb Hct MCHC RDW Lymph % (Auto) [place] % (Auto) Eos % (Auto) Lymph # [place] # Lymph # (Auto) [place] # (Auto) Eos # (Auto) Seg Neutrophils % Seg Neuts % (Manual) Lymphocytes % (Manual) Seg Neutrophils # Seg Neutrophils # Man Lymphocytes # (Manual) Monocytes % (Manual) Eosinophils % (Manual) Monocytes # (Manual) Eosinophils # (Manual) D-Dimer Heparin Anti-Xa Level ABG pH POC ABG pCO2 POC ABG pO2 ABG pO2 ABG HCO3 ABG O2 Saturation ABG Base Excess ABG Hemoglobin ABG Oxyhemoglobin VBG pH ABG Sodium ABG Potassium ABG Glucose Oxyhemoglobin Sodium Potassium Chloride Carbon Dioxide BUN Creatinine Glucose POC Glucose 153 H 144 H 160 H Lactic Acid Calcium Ferritin AST Alkaline Phosphatase Magnesium Lactate Dehydrogenase Total Creatine Kinase CK-MB (CK-2) C-Reactive Protein Total Protein Albumin Troponin T HDL Cholesterol Arterial Blood Glucose Urine WBC (Auto) Urine Creatinine Urine Total Protein Phenytoin Coronavirus (PCR) Crossmatch 07/22/20 07/22/20 07/22/20 00:45 05:52 12:03 WBC RBC Hgb Hct MCHC RDW Lymph % (Auto) [place] % (Auto) Eos % (Auto) Lymph # [place] # Lymph # (Auto) [place] # (Auto) Eos # (Auto) Seg Neutrophils % Seg Neuts % (Manual) Lymphocytes % (Manual) Seg Neutrophils # Seg Neutrophils # Man Lymphocytes # (Manual) Monocytes % (Manual) Eosinophils % (Manual) Monocytes # (Manual) Eosinophils # (Manual) D-Dimer Heparin Anti-Xa Level ABG pH POC ABG pCO2 POC ABG pO2 ABG pO2 ABG HCO3 ABG O2 Saturation ABG Base Excess ABG Hemoglobin ABG Oxyhemoglobin VBG pH ABG Sodium ABG Potassium ABG Glucose Oxyhemoglobin Sodium Potassium Chloride Carbon Dioxide BUN Creatinine Glucose POC Glucose 128 H 126 H 157 H Lactic Acid Calcium Ferritin AST Alkaline Phosphatase Magnesium Lactate Dehydrogenase Total Creatine Kinase CK-MB (CK-2) C-Reactive Protein Total Protein Albumin Troponin T HDL Cholesterol Arterial Blood Glucose Urine WBC (Auto) Urine Creatinine Urine Total Protein Phenytoin Coronavirus (PCR) Crossmatch 07/22/20 07/22/20 07/23/20 18:23 23:20 06:06 WBC RBC Hgb Hct MCHC RDW Lymph % (Auto) [place] % (Auto) Eos % (Auto) Lymph # [place] # Lymph # (Auto) [place] # (Auto) Eos # (Auto) Seg Neutrophils % Seg Neuts % (Manual) Lymphocytes % (Manual) Seg Neutrophils # Seg Neutrophils # Man Lymphocytes # (Manual) Monocytes % (Manual) Eosinophils % (Manual) Monocytes # (Manual) Eosinophils # (Manual) D-Dimer Heparin Anti-Xa Level ABG pH POC ABG pCO2 POC ABG pO2 ABG pO2 ABG HCO3 ABG O2 Saturation ABG Base Excess ABG Hemoglobin ABG Oxyhemoglobin VBG pH ABG Sodium ABG Potassium ABG Glucose Oxyhemoglobin Sodium Potassium Chloride Carbon Dioxide BUN Creatinine Glucose POC Glucose 152 H 122 H 143 H Lactic Acid Calcium Ferritin AST Alkaline Phosphatase Magnesium Lactate Dehydrogenase Total Creatine Kinase CK-MB (CK-2) C-Reactive Protein Total Protein Albumin Troponin T HDL Cholesterol Arterial Blood Glucose Urine WBC (Auto) Urine Creatinine Urine Total Protein Phenytoin Coronavirus (PCR) Crossmatch 07/23/20 07/23/20 07/23/20 12:11 17:38 19:23 WBC RBC Hgb Hct MCHC RDW Lymph % (Auto) [place] % (Auto) Eos % (Auto) Lymph # [place] # Lymph # (Auto) [place] # (Auto) Eos # (Auto) Seg Neutrophils % Seg Neuts % (Manual) Lymphocytes % (Manual) Seg Neutrophils # Seg Neutrophils # Man Lymphocytes # (Manual) Monocytes % (Manual) Eosinophils % (Manual) Monocytes # (Manual) Eosinophils # (Manual) D-Dimer Heparin Anti-Xa Level ABG pH POC ABG pCO2 POC ABG pO2 ABG pO2 ABG HCO3 ABG O2 Saturation ABG Base Excess ABG Hemoglobin ABG Oxyhemoglobin VBG pH ABG Sodium ABG Potassium ABG Glucose Oxyhemoglobin Sodium 129 L D Potassium 5.8 H Chloride 95.6 L Carbon Dioxide BUN 98 H Creatinine 2.1 H Glucose 167 H POC Glucose 210 H 181 H Lactic Acid Calcium Ferritin AST Alkaline Phosphatase Magnesium Lactate Dehydrogenase Total Creatine Kinase CK-MB (CK-2) C-Reactive Protein Total Protein Albumin 2.2 L Troponin T HDL Cholesterol Arterial Blood Glucose Urine WBC (Auto) Urine Creatinine Urine Total Protein Phenytoin Coronavirus (PCR) Crossmatch 07/24/20 07/24/20 07/24/20 00:00 04:29 04:29 WBC RBC 2.53 L Hgb 7.5 L Hct 22.8 L MCHC RDW 16.8 H Lymph % (Auto) 9.4 L [place] % (Auto) 10.4 H Eos % (Auto) 5.9 H Lymph # [place] # Lymph # (Auto) 0.8 L [place] # (Auto) 0.9 H Eos # (Auto) 0.5 H Seg Neutrophils % 73.5 H Seg Neuts % (Manual) Lymphocytes % (Manual) Seg Neutrophils # Seg Neutrophils # Man Lymphocytes # (Manual) Monocytes % (Manual) Eosinophils % (Manual) Monocytes # (Manual) Eosinophils # (Manual) D-Dimer Heparin Anti-Xa Level ABG pH POC ABG pCO2 POC ABG pO2 ABG pO2 ABG HCO3 ABG O2 Saturation ABG Base Excess ABG Hemoglobin ABG Oxyhemoglobin VBG pH ABG Sodium ABG Potassium ABG Glucose Oxyhemoglobin Sodium Potassium Chloride Carbon Dioxide BUN Creatinine Glucose POC Glucose 201 H Lactic Acid Calcium Ferritin AST Alkaline Phosphatase Magnesium Lactate Dehydrogenase Total Creatine Kinase CK-MB (CK-2) C-Reactive Protein Total Protein Albumin Troponin T HDL Cholesterol Arterial Blood Glucose Urine WBC (Auto) Urine Creatinine Urine Total Protein Phenytoin 9.4 L Coronavirus (PCR) Crossmatch 07/24/20 07/24/20 07/24/20 04:29 05:11 12:14 WBC RBC Hgb Hct MCHC RDW Lymph % (Auto) [place] % (Auto) Eos % (Auto) Lymph # [place] # Lymph # (Auto) [place] # (Auto) Eos # (Auto) Seg Neutrophils % Seg Neuts % (Manual) Lymphocytes % (Manual) Seg Neutrophils # Seg Neutrophils # Man Lymphocytes # (Manual) Monocytes % (Manual) Eosinophils % (Manual) Monocytes # (Manual) Eosinophils # (Manual) D-Dimer Heparin Anti-Xa Level ABG pH POC ABG pCO2 POC ABG pO2 ABG pO2 ABG HCO3 ABG O2 Saturation ABG Base Excess ABG Hemoglobin ABG Oxyhemoglobin VBG pH ABG Sodium ABG Potassium ABG Glucose Oxyhemoglobin Sodium 134 L Potassium 5.5 H Chloride Carbon Dioxide BUN 97 H Creatinine 2.2 H Glucose 149 H POC Glucose 142 H 146 H Lactic Acid Calcium Ferritin AST Alkaline Phosphatase Magnesium 2.60 H Lactate Dehydrogenase Total Creatine Kinase CK-MB (CK-2) C-Reactive Protein Total Protein Albumin Troponin T HDL Cholesterol Arterial Blood Glucose Urine WBC (Auto) Urine Creatinine Urine Total Protein Phenytoin Coronavirus (PCR) Crossmatch 07/24/20 07/24/20 07/25/20 18:12 21:00 00:08 WBC RBC Hgb Hct MCHC RDW Lymph % (Auto) [place] % (Auto) Eos % (Auto) Lymph # [place] # Lymph # (Auto) [place] # (Auto) Eos # (Auto) Seg Neutrophils % Seg Neuts % (Manual) Lymphocytes % (Manual) Seg Neutrophils # Seg Neutrophils # Man Lymphocytes # (Manual) Monocytes % (Manual) Eosinophils % (Manual) Monocytes # (Manual) Eosinophils # (Manual) D-Dimer Heparin Anti-Xa Level ABG pH POC ABG pCO2 POC ABG pO2 ABG pO2 ABG HCO3 ABG O2 Saturation ABG Base Excess ABG Hemoglobin ABG Oxyhemoglobin VBG pH ABG Sodium ABG Potassium ABG Glucose Oxyhemoglobin Sodium Potassium Chloride Carbon Dioxide BUN Creatinine Glucose POC Glucose 182 H 170 H 129 H Lactic Acid Calcium Ferritin AST Alkaline Phosphatase Magnesium Lactate Dehydrogenase Total Creatine Kinase CK-MB (CK-2) C-Reactive Protein Total Protein Albumin Troponin T HDL Cholesterol Arterial Blood Glucose Urine WBC (Auto) Urine Creatinine Urine Total Protein Phenytoin Coronavirus (PCR) Crossmatch 07/25/20 07/25/20 07/25/20 04:24 04:24 12:19 WBC RBC 2.51 L Hgb 7.5 L Hct 22.3 L MCHC RDW 17.4 H Lymph % (Auto) [place] % (Auto) Eos % (Auto) Lymph # [place] # Lymph # (Auto) [place] # (Auto) Eos # (Auto) Seg Neutrophils % Seg Neuts % (Manual) Lymphocytes % (Manual) Seg Neutrophils # Seg Neutrophils # Man Lymphocytes # (Manual) Monocytes % (Manual) Eosinophils % (Manual) Monocytes # (Manual) Eosinophils # (Manual) D-Dimer Heparin Anti-Xa Level ABG pH POC ABG pCO2 POC ABG pO2 ABG pO2 ABG HCO3 ABG O2 Saturation ABG Base Excess ABG Hemoglobin ABG Oxyhemoglobin VBG pH ABG Sodium ABG Potassium ABG Glucose Oxyhemoglobin Sodium 132 L Potassium Chloride 95.1 L Carbon Dioxide 21 L BUN 95 H Creatinine 2.5 H Glucose 108 H POC Glucose 122 H Lactic Acid Calcium Ferritin AST Alkaline Phosphatase Magnesium Lactate Dehydrogenase Total Creatine Kinase CK-MB (CK-2) C-Reactive Protein Total Protein Albumin Troponin T HDL Cholesterol Arterial Blood Glucose Urine WBC (Auto) Urine Creatinine Urine Total Protein Phenytoin Coronavirus (PCR) Crossmatch 07/25/20 07/25/20 07/26/20 18:11 23:24 04:22 WBC RBC Hgb Hct MCHC RDW Lymph % (Auto) [place] % (Auto) Eos % (Auto) Lymph # [place] # Lymph # (Auto) [place] # (Auto) Eos # (Auto) Seg Neutrophils % Seg Neuts % (Manual) Lymphocytes % (Manual) Seg Neutrophils # Seg Neutrophils # Man Lymphocytes # (Manual) Monocytes % (Manual) Eosinophils % (Manual) Monocytes # (Manual) Eosinophils # (Manual) D-Dimer Heparin Anti-Xa Level ABG pH POC ABG pCO2 POC ABG pO2 ABG pO2 ABG HCO3 ABG O2 Saturation ABG Base Excess ABG Hemoglobin ABG Oxyhemoglobin VBG pH ABG Sodium ABG Potassium ABG Glucose Oxyhemoglobin Sodium 132 L Potassium Chloride 96.2 L Carbon Dioxide 21 L BUN 99 H Creatinine 2.5 H Glucose 132 H POC Glucose 137 H 117 H Lactic Acid Calcium 8.2 L Ferritin AST Alkaline Phosphatase Magnesium Lactate Dehydrogenase Total Creatine Kinase CK-MB (CK-2) C-Reactive Protein Total Protein Albumin Troponin T HDL Cholesterol Arterial Blood Glucose Urine WBC (Auto) Urine Creatinine Urine Total Protein Phenytoin Coronavirus (PCR) Crossmatch 07/26/20 07/26/20 07/26/20 05:58 12:21 17:31 WBC RBC Hgb Hct MCHC RDW Lymph % (Auto) [place] % (Auto) Eos % (Auto) Lymph # [place] # Lymph # (Auto) [place] # (Auto) Eos # (Auto) Seg Neutrophils % Seg Neuts % (Manual) Lymphocytes % (Manual) Seg Neutrophils # Seg Neutrophils # Man Lymphocytes # (Manual) Monocytes % (Manual) Eosinophils % (Manual) Monocytes # (Manual) Eosinophils # (Manual) D-Dimer Heparin Anti-Xa Level ABG pH POC ABG pCO2 POC ABG pO2 ABG pO2 ABG HCO3 ABG O2 Saturation ABG Base Excess ABG Hemoglobin ABG Oxyhemoglobin VBG pH ABG Sodium ABG Potassium ABG Glucose Oxyhemoglobin Sodium Potassium Chloride Carbon Dioxide BUN Creatinine Glucose POC Glucose 110 H 142 H 180 H Lactic Acid Calcium Ferritin AST Alkaline Phosphatase Magnesium Lactate Dehydrogenase Total Creatine Kinase CK-MB (CK-2) C-Reactive Protein Total Protein Albumin Troponin T HDL Cholesterol Arterial Blood Glucose Urine WBC (Auto) Urine Creatinine Urine Total Protein Phenytoin Coronavirus (PCR) Crossmatch 07/26/20 07/27/20 07/27/20 23:36 03:36 05:36 WBC RBC 2.49 L Hgb 7.3 L Hct 22.2 L MCHC RDW 17.2 H Lymph % (Auto) 11.0 L [place] % (Auto) 11.7 H Eos % (Auto) Lymph # [place] # Lymph # (Auto) 0.8 L [place] # (Auto) 0.9 H Eos # (Auto) Seg Neutrophils % 72.3 H Seg Neuts % (Manual) Lymphocytes % (Manual) Seg Neutrophils # Seg Neutrophils # Man Lymphocytes # (Manual) Monocytes % (Manual) Eosinophils % (Manual) Monocytes # (Manual) Eosinophils # (Manual) D-Dimer Heparin Anti-Xa Level ABG pH POC ABG pCO2 POC ABG pO2 ABG pO2 ABG HCO3 ABG O2 Saturation ABG Base Excess ABG Hemoglobin ABG Oxyhemoglobin VBG pH ABG Sodium ABG Potassium ABG Glucose Oxyhemoglobin Sodium Potassium Chloride Carbon Dioxide BUN Creatinine Glucose POC Glucose 162 H 118 H Lactic Acid Calcium Ferritin AST Alkaline Phosphatase Magnesium Lactate Dehydrogenase Total Creatine Kinase CK-MB (CK-2) C-Reactive Protein Total Protein Albumin Troponin T HDL Cholesterol Arterial Blood Glucose Urine WBC (Auto) Urine Creatinine Urine Total Protein Phenytoin Coronavirus (PCR) Crossmatch 07/27/20 07/27/20 07/27/20 05:36 12:19 17:36 WBC RBC Hgb Hct MCHC RDW Lymph % (Auto) [place] % (Auto) Eos % (Auto) Lymph # [place] # Lymph # (Auto) [place] # (Auto) Eos # (Auto) Seg Neutrophils % Seg Neuts % (Manual) Lymphocytes % (Manual) Seg Neutrophils # Seg Neutrophils # Man Lymphocytes # (Manual) Monocytes % (Manual) Eosinophils % (Manual) Monocytes # (Manual) Eosinophils # (Manual) D-Dimer Heparin Anti-Xa Level ABG pH POC ABG pCO2 POC ABG pO2 ABG pO2 ABG HCO3 ABG O2 Saturation ABG Base Excess ABG Hemoglobin ABG Oxyhemoglobin VBG pH ABG Sodium ABG Potassium ABG Glucose Oxyhemoglobin Sodium 135 L Potassium 5.3 H Chloride Carbon Dioxide 21 L BUN 103 H Creatinine 2.6 H Glucose 113 H POC Glucose 131 H 151 H Lactic Acid Calcium 8.1 L Ferritin AST Alkaline Phosphatase Magnesium Lactate Dehydrogenase Total Creatine Kinase CK-MB (CK-2) C-Reactive Protein Total Protein Albumin Troponin T HDL Cholesterol Arterial Blood Glucose Urine WBC (Auto) Urine Creatinine Urine Total Protein Phenytoin Coronavirus (PCR) Crossmatch 07/27/20 07/28/20 07/28/20 23:29 04:30 04:30 WBC RBC 2.50 L Hgb 7.3 L Hct 22.2 L MCHC RDW 17.3 H Lymph % (Auto) 8.7 L [place] % (Auto) 8.3 H Eos % (Auto) Lymph # [place] # Lymph # (Auto) 0.7 L [place] # (Auto) Eos # (Auto) Seg Neutrophils % 79.1 H Seg Neuts % (Manual) Lymphocytes % (Manual) Seg Neutrophils # Seg Neutrophils # Man Lymphocytes # (Manual) Monocytes % (Manual) Eosinophils % (Manual) Monocytes # (Manual) Eosinophils # (Manual) D-Dimer Heparin Anti-Xa Level ABG pH POC ABG pCO2 POC ABG pO2 ABG pO2 ABG HCO3 ABG O2 Saturation ABG Base Excess ABG Hemoglobin ABG Oxyhemoglobin VBG pH ABG Sodium ABG Potassium ABG Glucose Oxyhemoglobin Sodium 135 L Potassium 5.2 H Chloride 96.8 L Carbon Dioxide 20 L BUN 107 H Creatinine 2.9 H Glucose POC Glucose 124 H Lactic Acid Calcium 8.2 L Ferritin AST Alkaline Phosphatase Magnesium 2.70 H Lactate Dehydrogenase Total Creatine Kinase CK-MB (CK-2) C-Reactive Protein Total Protein Albumin Troponin T HDL Cholesterol Arterial Blood Glucose Urine WBC (Auto) Urine Creatinine Urine Total Protein Phenytoin Coronavirus (PCR) Crossmatch 07/28/20 07/29/20 07/29/20 17:35 00:11 06:45 WBC RBC Hgb Hct MCHC RDW Lymph % (Auto) [place] % (Auto) Eos % (Auto) Lymph # [place] # Lymph # (Auto) [place] # (Auto) Eos # (Auto) Seg Neutrophils % Seg Neuts % (Manual) Lymphocytes % (Manual) Seg Neutrophils # Seg Neutrophils # Man Lymphocytes # (Manual) Monocytes % (Manual) Eosinophils % (Manual) Monocytes # (Manual) Eosinophils # (Manual) D-Dimer Heparin Anti-Xa Level ABG pH POC ABG pCO2 POC ABG pO2 ABG pO2 ABG HCO3 ABG O2 Saturation ABG Base Excess ABG Hemoglobin ABG Oxyhemoglobin VBG pH ABG Sodium ABG Potassium ABG Glucose Oxyhemoglobin Sodium Potassium Chloride Carbon Dioxide BUN Creatinine Glucose POC Glucose 146 H 143 H 179 H Lactic Acid Calcium Ferritin AST Alkaline Phosphatase Magnesium Lactate Dehydrogenase Total Creatine Kinase CK-MB (CK-2) C-Reactive Protein Total Protein Albumin Troponin T HDL Cholesterol Arterial Blood Glucose Urine WBC (Auto) Urine Creatinine Urine Total Protein Phenytoin Coronavirus (PCR) Crossmatch 07/29/20 07/29/20 07/29/20 11:54 13:01 13:01 WBC RBC 2.40 L Hgb 7.1 L Hct 20.9 L MCHC RDW 17.5 H Lymph % (Auto) [place] % (Auto) Eos % (Auto) Lymph # [place] # Lymph # (Auto) [place] # (Auto) Eos # (Auto) Seg Neutrophils % Seg Neuts % (Manual) 86.0 H Lymphocytes % (Manual) 6.0 L Seg Neutrophils # Seg Neutrophils # Man 8.9 H Lymphocytes # (Manual) 0.6 L Monocytes % (Manual) 8.0 H Eosinophils % (Manual) Monocytes # (Manual) Eosinophils # (Manual) D-Dimer Heparin Anti-Xa Level ABG pH POC ABG pCO2 POC ABG pO2 ABG pO2 ABG HCO3 ABG O2 Saturation ABG Base Excess ABG Hemoglobin ABG Oxyhemoglobin VBG pH ABG Sodium ABG Potassium ABG Glucose Oxyhemoglobin Sodium 129 L Potassium Chloride 92.9 L Carbon Dioxide BUN 112 H Creatinine 3.0 H Glucose 142 H POC Glucose 170 H Lactic Acid Calcium 7.9 L Ferritin AST Alkaline Phosphatase Magnesium Lactate Dehydrogenase Total Creatine Kinase CK-MB (CK-2) C-Reactive Protein Total Protein Albumin Troponin T HDL Cholesterol Arterial Blood Glucose Urine WBC (Auto) Urine Creatinine Urine Total Protein Phenytoin Coronavirus (PCR) Crossmatch 07/29/20 07/30/20 07/30/20 22:45 05:01 11:45 WBC RBC Hgb Hct MCHC RDW Lymph % (Auto) [place] % (Auto) Eos % (Auto) Lymph # [place] # Lymph # (Auto) [place] # (Auto) Eos # (Auto) Seg Neutrophils % Seg Neuts % (Manual) Lymphocytes % (Manual) Seg Neutrophils # Seg Neutrophils # Man Lymphocytes # (Manual) Monocytes % (Manual) Eosinophils % (Manual) Monocytes # (Manual) Eosinophils # (Manual) D-Dimer Heparin Anti-Xa Level ABG pH POC ABG pCO2 POC ABG pO2 ABG pO2 ABG HCO3 ABG O2 Saturation ABG Base Excess ABG Hemoglobin ABG Oxyhemoglobin VBG pH ABG Sodium ABG Potassium ABG Glucose Oxyhemoglobin Sodium Potassium Chloride Carbon Dioxide BUN Creatinine Glucose POC Glucose 129 H 150 H 130 H Lactic Acid Calcium Ferritin AST Alkaline Phosphatase Magnesium Lactate Dehydrogenase Total Creatine Kinase CK-MB (CK-2) C-Reactive Protein Total Protein Albumin Troponin T HDL Cholesterol Arterial Blood Glucose Urine WBC (Auto) Urine Creatinine Urine Total Protein Phenytoin Coronavirus (PCR) Crossmatch 07/30/20 07/30/20 07/30/20 17:54 21:26 23:58 WBC RBC Hgb Hct MCHC RDW Lymph % (Auto) [place] % (Auto) Eos % (Auto) Lymph # [place] # Lymph # (Auto) [place] # (Auto) Eos # (Auto) Seg Neutrophils % Seg Neuts % (Manual) Lymphocytes % (Manual) Seg Neutrophils # Seg Neutrophils # Man Lymphocytes # (Manual) Monocytes % (Manual) Eosinophils % (Manual) Monocytes # (Manual) Eosinophils # (Manual) D-Dimer Heparin Anti-Xa Level ABG pH POC ABG pCO2 POC ABG pO2 ABG pO2 ABG HCO3 ABG O2 Saturation ABG Base Excess ABG Hemoglobin ABG Oxyhemoglobin VBG pH ABG Sodium ABG Potassium ABG Glucose Oxyhemoglobin Sodium Potassium Chloride Carbon Dioxide BUN Creatinine Glucose POC Glucose 143 H 124 H 142 H Lactic Acid Calcium Ferritin AST Alkaline Phosphatase Magnesium Lactate Dehydrogenase Total Creatine Kinase CK-MB (CK-2) C-Reactive Protein Total Protein Albumin Troponin T HDL Cholesterol Arterial Blood Glucose Urine WBC (Auto) Urine Creatinine Urine Total Protein Phenytoin Coronavirus (PCR) Crossmatch 07/31/20 07/31/20 07/31/20 05:43 11:35 18:07 WBC RBC Hgb Hct MCHC RDW Lymph % (Auto) [place] % (Auto) Eos % (Auto) Lymph # [place] # Lymph # (Auto) [place] # (Auto) Eos # (Auto) Seg Neutrophils % Seg Neuts % (Manual) Lymphocytes % (Manual) Seg Neutrophils # Seg Neutrophils # Man Lymphocytes # (Manual) Monocytes % (Manual) Eosinophils % (Manual) Monocytes # (Manual) Eosinophils # (Manual) D-Dimer Heparin Anti-Xa Level ABG pH POC ABG pCO2 POC ABG pO2 ABG pO2 ABG HCO3 ABG O2 Saturation ABG Base Excess ABG Hemoglobin ABG Oxyhemoglobin VBG pH ABG Sodium ABG Potassium ABG Glucose Oxyhemoglobin Sodium Potassium Chloride Carbon Dioxide BUN Creatinine Glucose POC Glucose 152 H 179 H 129 H Lactic Acid Calcium Ferritin AST Alkaline Phosphatase Magnesium Lactate Dehydrogenase Total Creatine Kinase CK-MB (CK-2) C-Reactive Protein Total Protein Albumin Troponin T HDL Cholesterol Arterial Blood Glucose Urine WBC (Auto) Urine Creatinine Urine Total Protein Phenytoin Coronavirus (PCR) Crossmatch 07/31/20 07/31/20 08/01/20 21:30 22:12 00:25 WBC RBC Hgb Hct MCHC RDW Lymph % (Auto) [place] % (Auto) Eos % (Auto) Lymph # [place] # Lymph # (Auto) [place] # (Auto) Eos # (Auto) Seg Neutrophils % Seg Neuts % (Manual) Lymphocytes % (Manual) Seg Neutrophils # Seg Neutrophils # Man Lymphocytes # (Manual) Monocytes % (Manual) Eosinophils % (Manual) Monocytes # (Manual) Eosinophils # (Manual) D-Dimer Heparin Anti-Xa Level ABG pH POC ABG pCO2 POC ABG pO2 ABG pO2 ABG HCO3 ABG O2 Saturation ABG Base Excess ABG Hemoglobin ABG Oxyhemoglobin VBG pH ABG Sodium ABG Potassium ABG Glucose Oxyhemoglobin Sodium Potassium Chloride Carbon Dioxide BUN Creatinine Glucose POC Glucose 143 H 122 H 134 H Lactic Acid Calcium Ferritin AST Alkaline Phosphatase Magnesium Lactate Dehydrogenase Total Creatine Kinase CK-MB (CK-2) C-Reactive Protein Total Protein Albumin Troponin T HDL Cholesterol Arterial Blood Glucose Urine WBC (Auto) Urine Creatinine Urine Total Protein Phenytoin Coronavirus (PCR) Crossmatch 08/01/20 08/01/20 08/01/20 04:43 05:41 12:23 WBC RBC Hgb Hct MCHC RDW Lymph % (Auto) [place] % (Auto) Eos % (Auto) Lymph # [place] # Lymph # (Auto) [place] # (Auto) Eos # (Auto) Seg Neutrophils % Seg Neuts % (Manual) Lymphocytes % (Manual) Seg Neutrophils # Seg Neutrophils # Man Lymphocytes # (Manual) Monocytes % (Manual) Eosinophils % (Manual) Monocytes # (Manual) Eosinophils # (Manual) D-Dimer Heparin Anti-Xa Level ABG pH POC ABG pCO2 POC ABG pO2 ABG pO2 ABG HCO3 ABG O2 Saturation ABG Base Excess ABG Hemoglobin ABG Oxyhemoglobin VBG pH ABG Sodium ABG Potassium ABG Glucose Oxyhemoglobin Sodium 128 L Potassium 5.8 H Chloride 90.5 L Carbon Dioxide 19 L BUN 122 H Creatinine 3.4 H Glucose 124 H POC Glucose 130 H 128 H Lactic Acid Calcium 8.0 L Ferritin AST Alkaline Phosphatase Magnesium Lactate Dehydrogenase Total Creatine Kinase CK-MB (CK-2) C-Reactive Protein Total Protein Albumin Troponin T HDL Cholesterol Arterial Blood Glucose Urine WBC (Auto) Urine Creatinine Urine Total Protein Phenytoin Coronavirus (PCR) Crossmatch 08/01/20 08/02/20 08/02/20 17:28 00:06 05:32 WBC RBC Hgb Hct MCHC RDW Lymph % (Auto) [place] % (Auto) Eos % (Auto) Lymph # [place] # Lymph # (Auto) [place] # (Auto) Eos # (Auto) Seg Neutrophils % Seg Neuts % (Manual) Lymphocytes % (Manual) Seg Neutrophils # Seg Neutrophils # Man Lymphocytes # (Manual) Monocytes % (Manual) Eosinophils % (Manual) Monocytes # (Manual) Eosinophils # (Manual) D-Dimer Heparin Anti-Xa Level ABG pH POC ABG pCO2 POC ABG pO2 ABG pO2 ABG HCO3 ABG O2 Saturation ABG Base Excess ABG Hemoglobin ABG Oxyhemoglobin VBG pH ABG Sodium ABG Potassium ABG Glucose Oxyhemoglobin Sodium Potassium Chloride Carbon Dioxide BUN Creatinine Glucose POC Glucose 121 H 128 H 177 H Lactic Acid Calcium Ferritin AST Alkaline Phosphatase Magnesium Lactate Dehydrogenase Total Creatine Kinase CK-MB (CK-2) C-Reactive Protein Total Protein Albumin Troponin T HDL Cholesterol Arterial Blood Glucose Urine WBC (Auto) Urine Creatinine Urine Total Protein Phenytoin Coronavirus (PCR) Crossmatch 08/02/20 08/02/20 08/03/20 11:25 12:34 00:08 WBC RBC Hgb Hct MCHC RDW Lymph % (Auto) [place] % (Auto) Eos % (Auto) Lymph # [place] # Lymph # (Auto) [place] # (Auto) Eos # (Auto) Seg Neutrophils % Seg Neuts % (Manual) Lymphocytes % (Manual) Seg Neutrophils # Seg Neutrophils # Man Lymphocytes # (Manual) Monocytes % (Manual) Eosinophils % (Manual) Monocytes # (Manual) Eosinophils # (Manual) D-Dimer Heparin Anti-Xa Level ABG pH 7.344 L POC ABG pCO2 POC ABG pO2 ABG pO2 101.1 H ABG HCO3 ABG O2 Saturation ABG Base Excess -4.5 L ABG Hemoglobin 6.6 L ABG Oxyhemoglobin VBG pH ABG Sodium ABG Potassium ABG Glucose Oxyhemoglobin Sodium Potassium Chloride Carbon Dioxide BUN Creatinine Glucose POC Glucose 196 H 141 H Lactic Acid Calcium Ferritin AST Alkaline Phosphatase Magnesium Lactate Dehydrogenase Total Creatine Kinase CK-MB (CK-2) C-Reactive Protein Total Protein Albumin Troponin T HDL Cholesterol Arterial Blood Glucose Urine WBC (Auto) Urine Creatinine Urine Total Protein Phenytoin Coronavirus (PCR) Crossmatch 08/03/20 08/03/20 08/03/20 04:38 04:38 04:38 WBC 14.3 H RBC 2.42 L Hgb 7.0 L Hct 21.5 L MCHC RDW 18.1 H Lymph % (Auto) [place] % (Auto) Eos % (Auto) Lymph # [place] # Lymph # (Auto) [place] # (Auto) Eos # (Auto) Seg Neutrophils % Seg Neuts % (Manual) Lymphocytes % (Manual) Seg Neutrophils # Seg Neutrophils # Man Lymphocytes # (Manual) Monocytes % (Manual) Eosinophils % (Manual) Monocytes # (Manual) Eosinophils # (Manual) D-Dimer Heparin Anti-Xa Level ABG pH POC ABG pCO2 POC ABG pO2 ABG pO2 ABG HCO3 ABG O2 Saturation ABG Base Excess ABG Hemoglobin ABG Oxyhemoglobin VBG pH ABG Sodium ABG Potassium ABG Glucose Oxyhemoglobin Sodium 130 L Potassium Chloride 90.1 L Carbon Dioxide 20 L BUN 105 H Creatinine 3.1 H Glucose 115 H POC Glucose Lactic Acid 0.40 L Calcium 8.2 L Ferritin AST Alkaline Phosphatase Magnesium Lactate Dehydrogenase Total Creatine Kinase CK-MB (CK-2) C-Reactive Protein Total Protein Albumin Troponin T HDL Cholesterol Arterial Blood Glucose Urine WBC (Auto) Urine Creatinine Urine Total Protein Phenytoin Coronavirus (PCR) Crossmatch 08/03/20 08/03/20 08/03/20 05:33 12:04 17:51 WBC RBC Hgb Hct MCHC RDW Lymph % (Auto) [place] % (Auto) Eos % (Auto) Lymph # [place] # Lymph # (Auto) [place] # (Auto) Eos # (Auto) Seg Neutrophils % Seg Neuts % (Manual) Lymphocytes % (Manual) Seg Neutrophils # Seg Neutrophils # Man Lymphocytes # (Manual) Monocytes % (Manual) Eosinophils % (Manual) Monocytes # (Manual) Eosinophils # (Manual) D-Dimer Heparin Anti-Xa Level ABG pH POC ABG pCO2 POC ABG pO2 ABG pO2 ABG HCO3 ABG O2 Saturation ABG Base Excess ABG Hemoglobin ABG Oxyhemoglobin VBG pH ABG Sodium ABG Potassium ABG Glucose Oxyhemoglobin Sodium Potassium Chloride Carbon Dioxide BUN Creatinine Glucose POC Glucose 117 H 115 H 123 H Lactic Acid Calcium Ferritin AST Alkaline Phosphatase Magnesium Lactate Dehydrogenase Total Creatine Kinase CK-MB (CK-2) C-Reactive Protein Total Protein Albumin Troponin T HDL Cholesterol Arterial Blood Glucose Urine WBC (Auto) Urine Creatinine Urine Total Protein Phenytoin Coronavirus (PCR) Crossmatch 08/03/20 08/04/20 08/04/20 23:25 01:41 05:34 WBC RBC 2.20 L Hgb 6.5 L Hct 19.5 L* MCHC RDW 18.5 H Lymph % (Auto) 9.2 L [place] % (Auto) 9.8 H Eos % (Auto) Lymph # [place] # Lymph # (Auto) 0.8 L [place] # (Auto) Eos # (Auto) Seg Neutrophils % 77.7 H Seg Neuts % (Manual) Lymphocytes % (Manual) Seg Neutrophils # Seg Neutrophils # Man Lymphocytes # (Manual) Monocytes % (Manual) Eosinophils % (Manual) Monocytes # (Manual) Eosinophils # (Manual) D-Dimer Heparin Anti-Xa Level ABG pH POC ABG pCO2 POC ABG pO2 ABG pO2 ABG HCO3 ABG O2 Saturation ABG Base Excess ABG Hemoglobin ABG Oxyhemoglobin VBG pH ABG Sodium ABG Potassium ABG Glucose Oxyhemoglobin Sodium Potassium Chloride Carbon Dioxide BUN Creatinine Glucose POC Glucose 122 H 112 H Lactic Acid Calcium Ferritin AST Alkaline Phosphatase Magnesium Lactate Dehydrogenase Total Creatine Kinase CK-MB (CK-2) C-Reactive Protein Total Protein Albumin Troponin T HDL Cholesterol Arterial Blood Glucose Urine WBC (Auto) Urine Creatinine Urine Total Protein Phenytoin Coronavirus (PCR) Crossmatch 08/04/20 08/04/20 08/05/20 12:19 17:42 00:25 WBC RBC Hgb Hct MCHC RDW Lymph % (Auto) [place] % (Auto) Eos % (Auto) Lymph # [place] # Lymph # (Auto) [place] # (Auto) Eos # (Auto) Seg Neutrophils % Seg Neuts % (Manual) Lymphocytes % (Manual) Seg Neutrophils # Seg Neutrophils # Man Lymphocytes # (Manual) Monocytes % (Manual) Eosinophils % (Manual) Monocytes # (Manual) Eosinophils # (Manual) D-Dimer Heparin Anti-Xa Level ABG pH POC ABG pCO2 POC ABG pO2 ABG pO2 ABG HCO3 ABG O2 Saturation ABG Base Excess ABG Hemoglobin ABG Oxyhemoglobin VBG pH ABG Sodium ABG Potassium ABG Glucose Oxyhemoglobin Sodium Potassium Chloride Carbon Dioxide BUN Creatinine Glucose POC Glucose 108 H 113 H 119 H Lactic Acid Calcium Ferritin AST Alkaline Phosphatase Magnesium Lactate Dehydrogenase Total Creatine Kinase CK-MB (CK-2) C-Reactive Protein Total Protein Albumin Troponin T HDL Cholesterol Arterial Blood Glucose Urine WBC (Auto) Urine Creatinine Urine Total Protein Phenytoin Coronavirus (PCR) Crossmatch 08/05/20 08/05/20 08/05/20 05:24 05:35 05:35 WBC RBC 2.13 L Hgb 6.2 L Hct 18.9 L* MCHC RDW 18.7 H Lymph % (Auto) 10.0 L [place] % (Auto) 8.5 H Eos % (Auto) Lymph # [place] # Lymph # (Auto) 0.8 L [place] # (Auto) Eos # (Auto) Seg Neutrophils % 78.1 H Seg Neuts % (Manual) Lymphocytes % (Manual) Seg Neutrophils # Seg Neutrophils # Man Lymphocytes # (Manual) Monocytes % (Manual) Eosinophils % (Manual) Monocytes # (Manual) Eosinophils # (Manual) D-Dimer Heparin Anti-Xa Level ABG pH POC ABG pCO2 POC ABG pO2 ABG pO2 ABG HCO3 ABG O2 Saturation ABG Base Excess ABG Hemoglobin ABG Oxyhemoglobin VBG pH ABG Sodium ABG Potassium ABG Glucose Oxyhemoglobin Sodium 135 L Potassium Chloride 96.3 L Carbon Dioxide BUN 89 H Creatinine 2.8 H Glucose 116 H POC Glucose 138 H Lactic Acid Calcium 7.5 L Ferritin AST 53 H Alkaline Phosphatase 501 H Magnesium Lactate Dehydrogenase Total Creatine Kinase CK-MB (CK-2) C-Reactive Protein Total Protein 6.1 L Albumin 2.2 L Troponin T HDL Cholesterol Arterial Blood Glucose Urine WBC (Auto) Urine Creatinine Urine Total Protein Phenytoin Coronavirus (PCR) Crossmatch 08/05/20 08/05/20 08/05/20 09:15 12:17 18:00 WBC RBC Hgb Hct MCHC RDW Lymph % (Auto) [place] % (Auto) Eos % (Auto) Lymph # [place] # Lymph # (Auto) [place] # (Auto) Eos # (Auto) Seg Neutrophils % Seg Neuts % (Manual) Lymphocytes % (Manual) Seg Neutrophils # Seg Neutrophils # Man Lymphocytes # (Manual) Monocytes % (Manual) Eosinophils % (Manual) Monocytes # (Manual) Eosinophils # (Manual) D-Dimer Heparin Anti-Xa Level ABG pH POC ABG pCO2 POC ABG pO2 ABG pO2 ABG HCO3 ABG O2 Saturation ABG Base Excess ABG Hemoglobin ABG Oxyhemoglobin VBG pH ABG Sodium ABG Potassium ABG Glucose Oxyhemoglobin Sodium Potassium Chloride Carbon Dioxide BUN Creatinine Glucose POC Glucose 126 H 143 H Lactic Acid Calcium Ferritin AST Alkaline Phosphatase Magnesium Lactate Dehydrogenase Total Creatine Kinase CK-MB (CK-2) C-Reactive Protein Total Protein Albumin Troponin T HDL Cholesterol Arterial Blood Glucose Urine WBC (Auto) Urine Creatinine Urine Total Protein Phenytoin Coronavirus (PCR) Crossmatch See Detail 08/06/20 08/06/20 08/07/20 00:50 04:30 04:40 WBC RBC 2.43 L 2.48 L Hgb 7.2 L 7.4 L Hct 21.7 L 22.1 L MCHC RDW 18.1 H 18.1 H Lymph % (Auto) 9.9 L 11.7 L [place] % (Auto) 10.5 H 8.6 H Eos % (Auto) Lymph # [place] # Lymph # (Auto) 0.7 L 0.9 L [place] # (Auto) Eos # (Auto) Seg Neutrophils % 75.1 H 76.1 H Seg Neuts % (Manual) Lymphocytes % (Manual) Seg Neutrophils # Seg Neutrophils # Man Lymphocytes # (Manual) Monocytes % (Manual) Eosinophils % (Manual) Monocytes # (Manual) Eosinophils # (Manual) D-Dimer Heparin Anti-Xa Level ABG pH POC ABG pCO2 POC ABG pO2 ABG pO2 ABG HCO3 ABG O2 Saturation ABG Base Excess ABG Hemoglobin ABG Oxyhemoglobin VBG pH ABG Sodium ABG Potassium ABG Glucose Oxyhemoglobin Sodium Potassium Chloride Carbon Dioxide BUN Creatinine Glucose POC Glucose 117 H Lactic Acid Calcium Ferritin AST Alkaline Phosphatase Magnesium Lactate Dehydrogenase Total Creatine Kinase CK-MB (CK-2) C-Reactive Protein Total Protein Albumin Troponin T HDL Cholesterol Arterial Blood Glucose Urine WBC (Auto) Urine Creatinine Urine Total Protein Phenytoin Coronavirus (PCR) Crossmatch 08/07/20 08/07/20 08/08/20 05:44 06:00 00:03 WBC RBC Hgb Hct MCHC RDW Lymph % (Auto) [place] % (Auto) Eos % (Auto) Lymph # [place] # Lymph # (Auto) [place] # (Auto) Eos # (Auto) Seg Neutrophils % Seg Neuts % (Manual) Lymphocytes % (Manual) Seg Neutrophils # Seg Neutrophils # Man Lymphocytes # (Manual) Monocytes % (Manual) Eosinophils % (Manual) Monocytes # (Manual) Eosinophils # (Manual) D-Dimer Heparin Anti-Xa Level ABG pH POC ABG pCO2 POC ABG pO2 ABG pO2 ABG HCO3 ABG O2 Saturation ABG Base Excess ABG Hemoglobin ABG Oxyhemoglobin VBG pH ABG Sodium ABG Potassium ABG Glucose Oxyhemoglobin Sodium 132 L Potassium 3.3 L Chloride 92.8 L Carbon Dioxide BUN 64 H Creatinine 2.4 H Glucose POC Glucose 58 L 125 H Lactic Acid Calcium 7.0 L Ferritin AST Alkaline Phosphatase Magnesium Lactate Dehydrogenase Total Creatine Kinase CK-MB (CK-2) C-Reactive Protein Total Protein Albumin Troponin T HDL Cholesterol Arterial Blood Glucose Urine WBC (Auto) Urine Creatinine Urine Total Protein Phenytoin Coronavirus (PCR) Crossmatch 08/08/20 08/08/20 08/08/20 12:58 15:00 15:00 WBC RBC 2.36 L Hgb 7.1 L Hct 21.4 L MCHC RDW 18.3 H Lymph % (Auto) [place] % (Auto) Eos % (Auto) Lymph # [place] # Lymph # (Auto) [place] # (Auto) Eos # (Auto) Seg Neutrophils % Seg Neuts % (Manual) Lymphocytes % (Manual) Seg Neutrophils # Seg Neutrophils # Man Lymphocytes # (Manual) Monocytes % (Manual) Eosinophils % (Manual) Monocytes # (Manual) Eosinophils # (Manual) D-Dimer Heparin Anti-Xa Level ABG pH POC ABG pCO2 POC ABG pO2 ABG pO2 ABG HCO3 ABG O2 Saturation ABG Base Excess ABG Hemoglobin ABG Oxyhemoglobin VBG pH ABG Sodium ABG Potassium ABG Glucose Oxyhemoglobin Sodium Potassium Chloride Carbon Dioxide BUN Creatinine Glucose POC Glucose 134 H Lactic Acid Calcium Ferritin AST Alkaline Phosphatase Magnesium Lactate Dehydrogenase Total Creatine Kinase CK-MB (CK-2) C-Reactive Protein Total Protein Albumin Troponin T HDL Cholesterol Arterial Blood Glucose Urine WBC (Auto) Urine Creatinine Urine Total Protein Phenytoin 4.7 L Coronavirus (PCR) Crossmatch 08/08/20 08/08/20 08/09/20 15:00 17:39 00:00 WBC RBC Hgb Hct MCHC RDW Lymph % (Auto) [place] % (Auto) Eos % (Auto) Lymph # [place] # Lymph # (Auto) [place] # (Auto) Eos # (Auto) Seg Neutrophils % Seg Neuts % (Manual) Lymphocytes % (Manual) Seg Neutrophils # Seg Neutrophils # Man Lymphocytes # (Manual) Monocytes % (Manual) Eosinophils % (Manual) Monocytes # (Manual) Eosinophils # (Manual) D-Dimer Heparin Anti-Xa Level ABG pH POC ABG pCO2 POC ABG pO2 ABG pO2 ABG HCO3 ABG O2 Saturation ABG Base Excess ABG Hemoglobin ABG Oxyhemoglobin VBG pH ABG Sodium ABG Potassium ABG Glucose Oxyhemoglobin Sodium 130 L Potassium 3.1 L Chloride 91.5 L Carbon Dioxide BUN 52 H Creatinine 2.3 H Glucose 135 H POC Glucose 131 H 129 H Lactic Acid Calcium 7.3 L Ferritin AST Alkaline Phosphatase Magnesium Lactate Dehydrogenase Total Creatine Kinase CK-MB (CK-2) C-Reactive Protein Total Protein Albumin Troponin T HDL Cholesterol Arterial Blood Glucose Urine WBC (Auto) Urine Creatinine Urine Total Protein Phenytoin Coronavirus (PCR) Crossmatch 08/09/20 08/09/20 08/11/20 05:05 07:49 03:55 WBC RBC 2.22 L Hgb 6.9 L Hct 20.1 L MCHC RDW 18.3 H Lymph % (Auto) 11.2 L [place] % (Auto) 8.8 H Eos % (Auto) Lymph # [place] # Lymph # (Auto) 0.8 L [place] # (Auto) Eos # (Auto) Seg Neutrophils % 76.3 H Seg Neuts % (Manual) Lymphocytes % (Manual) Seg Neutrophils # Seg Neutrophils # Man Lymphocytes # (Manual) Monocytes % (Manual) Eosinophils % (Manual) Monocytes # (Manual) Eosinophils # (Manual) D-Dimer Heparin Anti-Xa Level ABG pH POC ABG pCO2 POC ABG pO2 ABG pO2 ABG HCO3 ABG O2 Saturation ABG Base Excess ABG Hemoglobin ABG Oxyhemoglobin VBG pH ABG Sodium ABG Potassium ABG Glucose Oxyhemoglobin Sodium 130 L Potassium Chloride 90.1 L Carbon Dioxide BUN 56 H Creatinine 2.4 H Glucose 104 H POC Glucose 111 H Lactic Acid Calcium 7.4 L Ferritin AST Alkaline Phosphatase Magnesium Lactate Dehydrogenase Total Creatine Kinase CK-MB (CK-2) C-Reactive Protein Total Protein Albumin Troponin T HDL Cholesterol Arterial Blood Glucose Urine WBC (Auto) Urine Creatinine Urine Total Protein Phenytoin Coronavirus (PCR) Crossmatch 08/11/20 08/11/20 08/11/20 03:55 05:39 23:46 WBC RBC Hgb Hct MCHC RDW Lymph % (Auto) [place] % (Auto) Eos % (Auto) Lymph # [place] # Lymph # (Auto) [place] # (Auto) Eos # (Auto) Seg Neutrophils % Seg Neuts % (Manual) Lymphocytes % (Manual) Seg Neutrophils # Seg Neutrophils # Man Lymphocytes # (Manual) Monocytes % (Manual) Eosinophils % (Manual) Monocytes # (Manual) Eosinophils # (Manual) D-Dimer Heparin Anti-Xa Level ABG pH POC ABG pCO2 POC ABG pO2 ABG pO2 ABG HCO3 ABG O2 Saturation ABG Base Excess ABG Hemoglobin ABG Oxyhemoglobin VBG pH ABG Sodium ABG Potassium ABG Glucose Oxyhemoglobin Sodium 135 L Potassium Chloride 94.5 L Carbon Dioxide BUN 48 H Creatinine 2.2 H Glucose 53 L POC Glucose < 40 L 131 H Lactic Acid Calcium 7.5 L Ferritin AST Alkaline Phosphatase Magnesium Lactate Dehydrogenase Total Creatine Kinase CK-MB (CK-2) C-Reactive Protein Total Protein Albumin Troponin T HDL Cholesterol Arterial Blood Glucose Urine WBC (Auto) Urine Creatinine Urine Total Protein Phenytoin Coronavirus (PCR) Crossmatch 08/12/20 08/12/20 08/12/20 05:39 12:15 17:21 WBC RBC Hgb Hct MCHC RDW Lymph % (Auto) [place] % (Auto) Eos % (Auto) Lymph # [place] # Lymph # (Auto) [place] # (Auto) Eos # (Auto) Seg Neutrophils % Seg Neuts % (Manual) Lymphocytes % (Manual) Seg Neutrophils # Seg Neutrophils # Man Lymphocytes # (Manual) Monocytes % (Manual) Eosinophils % (Manual) Monocytes # (Manual) Eosinophils # (Manual) D-Dimer Heparin Anti-Xa Level ABG pH POC ABG pCO2 POC ABG pO2 ABG pO2 ABG HCO3 ABG O2 Saturation ABG Base Excess ABG Hemoglobin ABG Oxyhemoglobin VBG pH ABG Sodium ABG Potassium ABG Glucose Oxyhemoglobin Sodium Potassium Chloride Carbon Dioxide BUN Creatinine Glucose POC Glucose 120 H 129 H 106 H Lactic Acid Calcium Ferritin AST Alkaline Phosphatase Magnesium Lactate Dehydrogenase Total Creatine Kinase CK-MB (CK-2) C-Reactive Protein Total Protein Albumin Troponin T HDL Cholesterol Arterial Blood Glucose Urine WBC (Auto) Urine Creatinine Urine Total Protein Phenytoin Coronavirus (PCR) Crossmatch 08/13/20 08/13/20 08/13/20 00:05 06:00 12:01 WBC RBC Hgb Hct MCHC RDW Lymph % (Auto) [place] % (Auto) Eos % (Auto) Lymph # [place] # Lymph # (Auto) [place] # (Auto) Eos # (Auto) Seg Neutrophils % Seg Neuts % (Manual) Lymphocytes % (Manual) Seg Neutrophils # Seg Neutrophils # Man Lymphocytes # (Manual) Monocytes % (Manual) Eosinophils % (Manual) Monocytes # (Manual) Eosinophils # (Manual) D-Dimer Heparin Anti-Xa Level ABG pH POC ABG pCO2 POC ABG pO2 ABG pO2 ABG HCO3 ABG O2 Saturation ABG Base Excess ABG Hemoglobin ABG Oxyhemoglobin VBG pH ABG Sodium ABG Potassium ABG Glucose Oxyhemoglobin Sodium Potassium Chloride Carbon Dioxide BUN Creatinine Glucose POC Glucose 120 H 114 H 112 H Lactic Acid Calcium Ferritin AST Alkaline Phosphatase Magnesium Lactate Dehydrogenase Total Creatine Kinase CK-MB (CK-2) C-Reactive Protein Total Protein Albumin Troponin T HDL Cholesterol Arterial Blood Glucose Urine WBC (Auto) Urine Creatinine Urine Total Protein Phenytoin Coronavirus (PCR) Crossmatch 08/13/20 08/13/20 08/14/20 17:24 23:51 04:50 WBC RBC Hgb Hct MCHC RDW Lymph % (Auto) [place] % (Auto) Eos % (Auto) Lymph # [place] # Lymph # (Auto) [place] # (Auto) Eos # (Auto) Seg Neutrophils % Seg Neuts % (Manual) Lymphocytes % (Manual) Seg Neutrophils # Seg Neutrophils # Man Lymphocytes # (Manual) Monocytes % (Manual) Eosinophils % (Manual) Monocytes # (Manual) Eosinophils # (Manual) D-Dimer Heparin Anti-Xa Level ABG pH POC ABG pCO2 POC ABG pO2 ABG pO2 ABG HCO3 ABG O2 Saturation ABG Base Excess ABG Hemoglobin ABG Oxyhemoglobin VBG pH ABG Sodium ABG Potassium ABG Glucose Oxyhemoglobin Sodium 132 L Potassium Chloride 93.2 L Carbon Dioxide BUN 58 H Creatinine 2.6 H Glucose 106 H POC Glucose 116 H 138 H Lactic Acid Calcium 8.0 L Ferritin AST Alkaline Phosphatase Magnesium Lactate Dehydrogenase Total Creatine Kinase CK-MB (CK-2) C-Reactive Protein Total Protein Albumin Troponin T HDL Cholesterol Arterial Blood Glucose Urine WBC (Auto) Urine Creatinine Urine Total Protein Phenytoin Coronavirus (PCR) Crossmatch 08/14/20 08/14/20 08/14/20 05:52 17:55 23:39 WBC RBC Hgb Hct MCHC RDW Lymph % (Auto) [place] % (Auto) Eos % (Auto) Lymph # [place] # Lymph # (Auto) [place] # (Auto) Eos # (Auto) Seg Neutrophils % Seg Neuts % (Manual) Lymphocytes % (Manual) Seg Neutrophils # Seg Neutrophils # Man Lymphocytes # (Manual) Monocytes % (Manual) Eosinophils % (Manual) Monocytes # (Manual) Eosinophils # (Manual) D-Dimer Heparin Anti-Xa Level ABG pH POC ABG pCO2 POC ABG pO2 ABG pO2 ABG HCO3 ABG O2 Saturation ABG Base Excess ABG Hemoglobin ABG Oxyhemoglobin VBG pH ABG Sodium ABG Potassium ABG Glucose Oxyhemoglobin Sodium Potassium Chloride Carbon Dioxide BUN Creatinine Glucose POC Glucose 108 H 128 H 112 H Lactic Acid Calcium Ferritin AST Alkaline Phosphatase Magnesium Lactate Dehydrogenase Total Creatine Kinase CK-MB (CK-2) C-Reactive Protein Total Protein Albumin Troponin T HDL Cholesterol Arterial Blood Glucose Urine WBC (Auto) Urine Creatinine Urine Total Protein Phenytoin Coronavirus (PCR) Crossmatch 08/15/20 08/15/20 08/15/20 07:02 12:25 18:11 WBC RBC Hgb Hct MCHC RDW Lymph % (Auto) [place] % (Auto) Eos % (Auto) Lymph # [place] # Lymph # (Auto) [place] # (Auto) Eos # (Auto) Seg Neutrophils % Seg Neuts % (Manual) Lymphocytes % (Manual) Seg Neutrophils # Seg Neutrophils # Man Lymphocytes # (Manual) Monocytes % (Manual) Eosinophils % (Manual) Monocytes # (Manual) Eosinophils # (Manual) D-Dimer Heparin Anti-Xa Level ABG pH POC ABG pCO2 POC ABG pO2 ABG pO2 ABG HCO3 ABG O2 Saturation ABG Base Excess ABG Hemoglobin ABG Oxyhemoglobin VBG pH ABG Sodium ABG Potassium ABG Glucose Oxyhemoglobin Sodium Potassium Chloride Carbon Dioxide BUN Creatinine Glucose POC Glucose 118 H 114 H 116 H Lactic Acid Calcium Ferritin AST Alkaline Phosphatase Magnesium Lactate Dehydrogenase Total Creatine Kinase CK-MB (CK-2) C-Reactive Protein Total Protein Albumin Troponin T HDL Cholesterol Arterial Blood Glucose Urine WBC (Auto) Urine Creatinine Urine Total Protein Phenytoin Coronavirus (PCR) Crossmatch 08/16/20 08/16/20 08/16/20 00:52 06:43 12:05 WBC RBC Hgb Hct MCHC RDW Lymph % (Auto) [place] % (Auto) Eos % (Auto) Lymph # [place] # Lymph # (Auto) [place] # (Auto) Eos # (Auto) Seg Neutrophils % Seg Neuts % (Manual) Lymphocytes % (Manual) Seg Neutrophils # Seg Neutrophils # Man Lymphocytes # (Manual) Monocytes % (Manual) Eosinophils % (Manual) Monocytes # (Manual) Eosinophils # (Manual) D-Dimer Heparin Anti-Xa Level ABG pH POC ABG pCO2 POC ABG pO2 ABG pO2 ABG HCO3 ABG O2 Saturation ABG Base Excess ABG Hemoglobin ABG Oxyhemoglobin VBG pH ABG Sodium ABG Potassium ABG Glucose Oxyhemoglobin Sodium Potassium Chloride Carbon Dioxide BUN Creatinine Glucose POC Glucose 115 H 109 H 119 H Lactic Acid Calcium Ferritin AST Alkaline Phosphatase Magnesium Lactate Dehydrogenase Total Creatine Kinase CK-MB (CK-2) C-Reactive Protein Total Protein Albumin Troponin T HDL Cholesterol Arterial Blood Glucose Urine WBC (Auto) Urine Creatinine Urine Total Protein Phenytoin Coronavirus (PCR) Crossmatch 08/16/20 08/17/20 08/17/20 23:58 06:23 12:26 WBC RBC Hgb Hct MCHC RDW Lymph % (Auto) [place] % (Auto) Eos % (Auto) Lymph # [place] # Lymph # (Auto) [place] # (Auto) Eos # (Auto) Seg Neutrophils % Seg Neuts % (Manual) Lymphocytes % (Manual) Seg Neutrophils # Seg Neutrophils # Man Lymphocytes # (Manual) Monocytes % (Manual) Eosinophils % (Manual) Monocytes # (Manual) Eosinophils # (Manual) D-Dimer Heparin Anti-Xa Level ABG pH POC ABG pCO2 POC ABG pO2 ABG pO2 ABG HCO3 ABG O2 Saturation ABG Base Excess ABG Hemoglobin ABG Oxyhemoglobin VBG pH ABG Sodium ABG Potassium ABG Glucose Oxyhemoglobin Sodium Potassium Chloride Carbon Dioxide BUN Creatinine Glucose POC Glucose 130 H 129 H 146 H Lactic Acid Calcium Ferritin AST Alkaline Phosphatase Magnesium Lactate Dehydrogenase Total Creatine Kinase CK-MB (CK-2) C-Reactive Protein Total Protein Albumin Troponin T HDL Cholesterol Arterial Blood Glucose Urine WBC (Auto) Urine Creatinine Urine Total Protein Phenytoin Coronavirus (PCR) Crossmatch 08/17/20 08/18/20 22:54 06:52 WBC RBC Hgb Hct MCHC RDW Lymph % (Auto) [place] % (Auto) Eos % (Auto) Lymph # [place] # Lymph # (Auto) [place] # (Auto) Eos # (Auto) Seg Neutrophils % Seg Neuts % (Manual) Lymphocytes % (Manual) Seg Neutrophils # Seg Neutrophils # Man Lymphocytes # (Manual) Monocytes % (Manual) Eosinophils % (Manual) Monocytes # (Manual) Eosinophils # (Manual) D-Dimer Heparin Anti-Xa Level ABG pH POC ABG pCO2 POC ABG pO2 ABG pO2 ABG HCO3 ABG O2 Saturation ABG Base Excess ABG Hemoglobin ABG Oxyhemoglobin VBG pH ABG Sodium ABG Potassium ABG Glucose Oxyhemoglobin Sodium Potassium Chloride Carbon Dioxide BUN Creatinine Glucose POC Glucose 126 H 120 H Lactic Acid Calcium Ferritin AST Alkaline Phosphatase Magnesium Lactate Dehydrogenase Total Creatine Kinase CK-MB (CK-2) C-Reactive Protein Total Protein Albumin Troponin T HDL Cholesterol Arterial Blood Glucose Urine WBC (Auto) Urine Creatinine Urine Total Protein Phenytoin Coronavirus (PCR) Crossmatch Chest x-ray: other (none today) Allied health notes reviewed: nursing
--- NOTE | 2020-08-18 13:50 | Discharge Summary ---
Providers - Providers Date of Admission: 05/28/20 19:08 Date of discharge: 08/18/20 Attending physician: TENZIN FOSTER 05/28/20 13:49 Consult to Dietitian/Nutrition [CONS] Routine Physician Instructions: Reason For Exam: Reason for Consult: Evaluate nutritional intake 05/28/20 19:08 Consult to Physician [CONS] Routine Comment: Consulting Provider: LISA FERNANDEZ Physician Instructions: Reason For Exam: cardiac arrest/respiratory failure on vent 05/29/20 13:16 Consult to Dietitian/Nutrition [CONS] Stat Physician Instructions: Reason For Exam: Reason for Consult: Write/Manage Tube Feeding 05/29/20 14:21 Consult to Physician [CONS] Routine Comment: Consulting Provider: TING THOMAS Physician Instructions: Reason For Exam: COVID 19; Pneumonia 06/05/20 11:12 Consult to Physician [CONS] Routine Comment: Consulting Provider: TANNER HERNANDEZ Physician Instructions: Reason For Exam: Acute kidney injury 06/12/20 12:56 Occupational Therapy Evaluate and Treat [CONS] Routine Comment: Reason For Exam: ADLS Physical Therapy Evaluation and Treat [CONS] Routine Comment: Reason For Exam: post extubation, critical illness myopathy 06/13/20 11:00 Speech Therapy Evaluation and Treat [CONS] Routine Reason For Exam: dysphagia eval, post extubation 06/14/20 11:50 Consult to Dietitian/Nutrition [CONS] Routine Physician Instructions: Assess nutrtn needs, initiate, modify, manage TF Reason For Exam: Reason for Consult: Write/Manage Tube Feeding Reason for Consult: Write/Manage Tube Feeding 06/23/20 17:14 Speech Therapy Evaluation and Treat [CONS] Routine Reason For Exam: aspiration 06/28/20 09:58 Consult to Physician [CONS] Routine Comment: Consulting Provider: LUPE ROBERT Physician Instructions: Reason For Exam: GI bleed 06/30/20 15:14 Midline [Consult to PICC Line RN] [CONS] Urgent Reason For Exam: pt needs Midline Type Line:: Midline 07/03/20 17:34 Consult to Physician [CONS] Routine Comment: dr. roblero o/shandra fuentes Consulting Provider: ASHISH LINDSAY Physician Instructions: Reason For Exam: Bright red stool 07/07/20 17:47 Consult to Physician [CONS] Routine Comment: called office Consulting Provider: TANNER HERNANDEZ Physician Instructions: Reconsult Reason For Exam: Worsening renal function 07/11/20 16:32 Consult to Physician [CONS] Routine Comment: Consulting Provider: BHASKAR VERNON Physician Instructions: Reason For Exam: Tracheostomy placement 07/13/20 10:13 Consult to Physician [CONS] Routine Comment: Consulting Provider: TANNER HERNANDEZ Physician Instructions: Reason For Exam: recall consult 07/15/20 11:26 Consult to Physician [CONS] Routine Comment: Consulting Provider: ALIREZA FONTANA Physician Instructions: Reason For Exam: encephalopathy, prognosis 07/24/20 08:17 Consult to Physician [CONS] Routine Comment: dr. huang spoke with dr. anglin/alfredo Consulting Provider: GERARDO HUANG Physician Instructions: Reason For Exam: Reconsult- AVANI 07/24/20 08:20 Consult to PICC Line RN [CONS] Urgent Reason For Exam: CRITICALLY ILL PATIENT Type Line:: PICC 07/29/20 11:28 Consult to Physician [CONS] Routine Comment: Consulting Provider: LUPE SURESH Physician Instructions: Reason For Exam: AVANI needs Vas cath 08/01/20 12:48 Consult to Physician [CONS] Urgent Comment: Consulting Provider: AMELIA GOLDEN Physician Instructions: Reason For Exam: dialysis 08/02/20 10:33 Consult to Interventional Radiology [CONS] Urgent Consulting Provider: LA RIVERA Reason For Exam: hemodialysis catheter Notified:: answering service 08/03/20 12:30 Consult to Physician [CONS] Routine Comment: called office/ alfredo Consulting Provider: ASHISH LINDSAY Physician Instructions: Reason For Exam: Fecal matter in NGT Primary care physician: FURNACE COOLER Hospitalization Reason for admission: Acute hypoxic respiratory failure Condition: Serious Pertinent studies: Multiple CT head without contrast Numerous chest x-rays Multiple x-ray abdomen Echocardiogram Renal ultrasound Procedures: Hemodialysis Vas-Cath placement CPR per ACLS protocol Multiple intubations and extubation Hospital course: 64 YO Female with a medical history of HTN, Diastolic CHF, Pulmonary HTN, DM, Obesity Hypoventilation Syndrome presents to ED for evaluation of shortness of breath. As per staff, the EMS was notified for difficulty breathing. Upon arrival to the patient's home the patient was found to be in distress and was subsequently transported to [facility] for further evaluation and care. In route to [facility] the patient developed cardiac arrest and was treated in accordance with ACLS protocol with return of ROSC. Patient was seen and evaluated in the emergency department and was intubated and placed on ventilatory support. Patient admitted to ICU. Critical care team consulted in ED. She was found to have COVID-19 infection and was started on steroids and remdesivir. ID was consulted. Cardiology was consulted for her systolic heart failure and cardiac arrest. Patient completed treatment for COVID-19, then develop superimposed bacterial pneumonia with Klebsiella. She is now extubated, 06/12/2020 but remains confused and requiring high flow O2 and intermittent BiPAP. Patient had another cardiac arrest reintubated 06/26/2020, currently in ICU vent dependent, unable to do trach and PEG due to persistent COVID-19 positive state, as well as anoxic brain injury, unable to get MRI , neurology following. Patient remained on ventilatory support unable to wean, unable to get trach and PEG Family has decided DNR status and discharged home with home hospice. Today patient remains intubated on vent guarded prognosis critically ill unresponsive Severe anoxic brain injury with very poor prognosis Patient will be discharged home with home hospice Will DC all the hospital medications Further management per hospice medical records coordinator Final diagnosis; --Cardiopulmonary arrest, 06/26/2020, 07/01/2020 --Severe anoxic brain injury --Cardiac arrhythmias --Acute hypoxic respiratory failure; vent dependent --Acute metabolic encephalopathy --Acute renal failure requiring hemodialysis --Hypertension --Acute blood loss anemia requiring blood transfusion --Rectal bleeding --Severe sepsis/Klebsiella septicemia --Septic shock --Seizures --Superficial left cephalic vein DVT --Acute on chronic systolic congestive heart failure --Acute liver failure/transaminitis --Morbid obesity --Severe COVID-19 infection Patient is being discharged home with home hospice Disposition: DC-50 TO HOSPICE (HOME) Time spent for discharge: 35 min Core Measure Documentation - Palliative Care Palliative Care/ Comfort Measures: Hospice Care - Core Measures Any of the following diagnoses?: none Exam - Constitutional Vitals: Temp Pulse Resp BP Pulse Ox 99.0 F 77 16 131/38 99 08/18/20 12:00 08/18/20 12:01 08/18/20 12:01 08/18/20 12:01 08/18/20 12:01 General appearance: Present: obese (Morbidly obese), other (Unresponsive intubated on vent) - EENT Eyes: Present: PERRL, EOM intact - Neck Neck: Present: supple, normal ROM - Respiratory Respiratory effort: normal Respiratory: bilateral: diminished, negative: rales, rhonchi, wheezing - Cardiovascular Rhythm: regular Heart Sounds: Present: S1 & S2 - Extremities Extremities: no ischemia, No edema - Abdominal General gastrointestinal: Present: soft, non-tender, non-distended, normal bowel sounds - Integumentary Integumentary: Present: clear, warm - Musculoskeletal Musculoskeletal: other (Intubated on vent) - Psychiatric Psychiatric: other (Intubated unresponsive on vent) - Neurologic Neurologic: other (Intubated on vent) Plan Activity: advance as tolerated, other (Bedbound) Diet: other (Tube feeding per protocol) Additional Instructions: Patient is being discharged home with home hospice. No prescriptions, DC all the in-hospital medications. Further management per Hospice medical records coordinator Follow up with: PRIMARY CAREMD [Primary Care Provider] - 7 Days
[2020-08-18] MEDS ORDERED: MORPHINE 4 MG/1 ML INJ IV NR (14:00)
[2020-08-18] MEDS: ONDANSETRON 4 MG/2 ML INJ IV PRN (14:24)
[2020-08-18 17:29] VITALS: BP 135/36
== END 2020-08-18 15:00 | disposition hospice, home (50) | DRG 870 ==
LOC: ED 13:28 → CC1 19:08 → IMCU 06-15 16:57 → 3A 06-18 18:10 → CC1 06-26 17:46
PROVIDERS: ADMIT Internal Medicine; ATTEND Internal Medicine
PROC: 5A1955Z Respiratory Ventilation, Greater than 96 Consecutive Hours (ICD-10-PCS; principal; 2020-05-28)
PROC: 0BH17EZ Insertion of Endotracheal Airway into Trachea, Via Natural or Artificial Opening (ICD-10-PCS; 2020-05-28)
PROC: XW033E5 Introduction of Remdesivir Anti-infective into Peripheral Vein, Percutaneous Approach, New Technology Group 5 (ICD-10-PCS; 2020-05-29)
PROC: 30233N1 Transfusion of Nonautologous Red Blood Cells into Peripheral Vein, Percutaneous Approach (ICD-10-PCS; 2020-06-26)
PROC: 02HV33Z Insertion of Infusion Device into Superior Vena Cava, Percutaneous Approach (ICD-10-PCS; 2020-06-26)
PROC: 02HV33Z Insertion of Infusion Device into Superior Vena Cava, Percutaneous Approach (ICD-10-PCS; 2020-06-26)
PROC: 4A033R1 Measurement of Arterial Saturation, Peripheral, Percutaneous Approach (ICD-10-PCS; 2020-07-03)
PROC: 06HM33Z Insertion of Infusion Device into Right Femoral Vein, Percutaneous Approach (ICD-10-PCS; 2020-08-02)
PROC: B54BZZA Ultrasonography of Right Lower Extremity Veins, Guidance (ICD-10-PCS; 2020-08-02)
PROC: 5A1D70Z Performance of Urinary Filtration, Intermittent, Less than 6 Hours Per Day (ICD-10-PCS; 2020-08-03)
PROC: 5A1D70Z Performance of Urinary Filtration, Intermittent, Less than 6 Hours Per Day (ICD-10-PCS; 2020-08-05)
PROC: 5A1D70Z Performance of Urinary Filtration, Intermittent, Less than 6 Hours Per Day (ICD-10-PCS; 2020-08-06)
PROC: 5A1D70Z Performance of Urinary Filtration, Intermittent, Less than 6 Hours Per Day (ICD-10-PCS; 2020-08-07)
PROC: 5A1D70Z Performance of Urinary Filtration, Intermittent, Less than 6 Hours Per Day (ICD-10-PCS; 2020-08-16)
DX: A41.89 Other specified sepsis (principal); U07.1 COVID-19; J96.01 Acute respiratory failure with hypoxia; I46.9 Cardiac arrest, cause unspecified; J12.89 Other viral pneumonia; R65.21 Severe sepsis with septic shock; I50.43 Acute on chronic combined systolic (congestive) and diastolic (congestive) heart failure; K72.00 Acute and subacute hepatic failure without coma; G92 Toxic encephalopathy; J15.0 Pneumonia due to Klebsiella pneumoniae; N17.0 Acute kidney failure with tubular necrosis; E87.2 Acidosis; J90 Pleural effusion, not elsewhere classified; E66.2 Morbid (severe) obesity with alveolar hypoventilation; Z68.41 Body mass index [BMI] 40.0-44.9, adult; G93.1 Anoxic brain damage, not elsewhere classified; D62 Acute posthemorrhagic anemia; K62.5 Hemorrhage of anus and rectum; I82.612 Acute embolism and thrombosis of superficial veins of left upper extremity; Z99.11 Dependence on respirator [ventilator] status; E87.1 Hypo-osmolality and hyponatremia; I42.9 Cardiomyopathy, unspecified; Z51.5 Encounter for palliative care; Z66 Do not resuscitate; E87.5 Hyperkalemia; Z83.3 Family history of diabetes mellitus; Z82.49 Family history of ischemic heart disease and other diseases of the circulatory system; R56.9 Unspecified convulsions; E11.65 Type 2 diabetes mellitus with hyperglycemia; Z79.84 Long term (current) use of oral hypoglycemic drugs; I11.0 Hypertensive heart disease with heart failure; I27.20 Pulmonary hypertension, unspecified
CPT/HCPCS: 31500; 36415; 36600; 70450; 71045; 74018; 74177; 80048; 80051; 80053; 80061; 80074; 80185; 81001; 82140; 82270; 82550; 82553; 82570; 82728; 82803; 82805; 82947; 82962; 83615; 83735; 84132; 84145; 84156; 84300; 84484; 85007; 85014; 85018; 85025; 85027; 85049; 85379; 85520; 85610; 85730; 86140; 86850; 86900; 86901; 86920; 87040; 87070; 87076; 87086; 87186; 87205; 87641; 93005; 93308; 93321; 93325; 94002; 94003; 94644; 94660; 94760; 95819; G0378; C9113; J0171; J0282; J0330; J0360; J0456; J0610; J0692; J0696; J0885; J1165; J1265; J1644; J1650; J1815; J1940; J1953; J2250; J2270; J2405; J2765; J2930; J3010; J3370; J3475; J7030; J7040; J7050; J7060; J8540; P9016; P9047; Q2009; Q9967; U0003; U0003-CS